=== PATIENT | male | born 1965 | race Caucasian/White ===

== ENCOUNTER 2016-10-17 05:48 | Outpatient (CLI) | payer MEDICARE ==
[~2016-10-17] VITALS: Ht 170.2 cm; Wt 165.1 kg
[~2016-10-17 05:48] MED LIST: ALBU0.632 IH; ALBU0.8322 IH; ALBU17AE23; ALBU17AE23 IH; ALBU8.5H2 IH; ALBUTEROL; ALBUTEROL NEB; AMLO5TAB2 PO; AMOX-358 PO; ARIP30TA PO; ASP81CT PO; ASP81TEC PO; ASPI-892 PO; ASPI81TA19 PO; ATOR20TA66 PO; ATOR40TA; ATOR40TA PO; Atorvastatin Calcium PO; BENZ-13 PO; BENZ200C25 PO; BUDE10.22 INH; CARV12.52; CARV12.52 PO; CARV12.53 PO; CEPH-507 PO; CEPH500C; CHOL200018 PO; CLON1TAB3 PO; CLOP75TA28 PO; CLPD75T PO; DIVA500T PO; DIVA500T15; DIVA500T15 PO; DOXY-233 PO; DVL500TEC; DVL500TSR PO; ESZO1TAB2 PO; ESZO2TAB4 PO; ESZO3TAB38 PO; EZET10TA23 PO; EZET10TA5; EZET10TA5 PO; FLT05NA16; FLUT16SP22 NS; FNT100TD TD; FNT25TD; FURO20TA4; FURO40TA4; FURO40TA4 PO; GABA-488 PO; GABA300T PO; GBPN100C; GBPN100C PO; HUMALOG; HYDR1TAB PO; INDO25CA PO; INDO50CA PO; INSASP10V; INSU100C4; INSU100C7 SQ; INSU100I14 SC; INSU100I14 SQ; INSU100V6; INSU100V6 SC; KCL20TCR; KETO50CA PO; KETO75CA; LEVO40CA PO; LIRA0.6P SQ; LIRA0.6P3 INJ; LISI10TA2 PO; LISI20TA PO; LISI40TA PO; LNS30CCR; LNS30CCR PO; LOSA100T16 PO; LOSA100T7 PO; LOSA50TA36 PO; LSRT50T PO; Losartan Potassium PO; MELO-195 PO; METF-380 PO; METF1000 PO; METH4TAB PO; METH500T35 PO; METO-272 PO; MNTL10T; MNTL10T PO; MONT10TA24 PO; MORP-33 PO; MORP15TA PO; MORP15TA30 PO; MORP15TA4 PO; MTL5T PO; MTP100TCR PO; MTP50T PO; NF-ABIL15T PO; NF-ESOM40C PO; NORT10CA3 PO; NORT25CA PO; ONDA8TAB9 PO; ONDAN4ODT PO; OXYC-12 PO; OXYC-272 PO; OXYC-465 PO; OXYC1CAP; OXYC1CAP3 PO; OXYC1TAB17 PO; PGLT30T PO; PIOG45TA; PIOG45TA16 PO; POTA10CA43 PO; POTA10TA36; POTA20TA15 PO; QUET100T32 PO; QUET50TA21 PO; QUET50TA55 PO; RIZA10TA23 PO; RIZA5TAB14; RIZA5TAB14 PO; RT-ALBUINH PO; SCR1T1 PO; SERT25TA PO; SERT50TA; SERT50TA2 PO; SERT50TA9 PO; SUMA100T3 PO; SYMLIN; TAMS0.4C2 PO; TAMS0.4C98 PO; TIOT18CA2 INH; TIOT18CA2 PO; TIZA4CAP PO; TOPI50TA20; TPR100T PO; TRAZ-144 PO; TRZ100T; TRZ100T PO; TRZ50T PO; TYLOX PO; VORT10TA PO; ZLP10T; ZLP10T PO; ZOLP10TA5 PO; ZONI100C11; ZONI100C11 PO; [UNRECOGNIZED DRUG - CODE] SQ; [UNRECOGNIZED DRUG - REMARK]; symbicort inhaler IH; trazodone PO
== END 2016-10-17 15:32 ==
LOC: PREOP 05:48
PROVIDERS: ATTEND Internal Medicine Critical Care Medicine
DX: Z01.818 Encounter for other preprocedural examination (principal); R59.0 Localized enlarged lymph nodes

== ENCOUNTER 2016-10-19 06:53 | Day surgery (SDC) | payer MEDICARE ==
[~2016-10-19] VITALS: Ht 170.2 cm; Wt 165.1 kg
[~2016-10-19 06:53] MED LIST changes: +NS IV 1000 ML 1,000 ML ONE
[2016-10-19] MEDS ORDERED: SUCCINYLCHOLINE INJ 100 MG/5 ML SYR ONE (07:15)
[2016-10-19] MEDS ORDERED: MIDAZOLAM 2 MG/2 ML (VERSED) VIAL ONE (07:16)
[2016-10-19] MEDS ORDERED: proPOfol 200 MG/20 ML (DIPRIVAN) VIAL IV ONE ×2 (07:16→08:18)
[2016-10-19] MEDS ORDERED: fentaNYL INJECTION 100 MCG/2 ML AMP ONE ×2 (07:16→08:11)
[2016-10-19] MEDS ORDERED: LIDOCAINE JELLY 2% (XYLOCAINE) 5 ML TUBE ONE (07:17)
[2016-10-19] MEDS ORDERED: SEVOFLURANE (ULTANE) 15 ML INHAL SOLN ONE ×2 (07:17→08:52)
[2016-10-19] MEDS ORDERED: NS IV 1000 ML 1,000 ML IV STA (07:23)
[2016-10-19] MEDS ORDERED: LIDOCAINE PF 1% 2 ML AMP INJ PRN (07:30)
[2016-10-19] MEDS ORDERED: FLUMAZENIL (ROMAZICON) 0.1 MG/ML 5 ML VIAL INJ PRN (07:30)
[2016-10-19] MEDS ORDERED: HURRICAINE EXT TUBE (BENZOCAINE) XX PRN (07:30)
[2016-10-19] MEDS ORDERED: NALOXONE 0.4 MG/ML 1 ML (NARCAN) VIAL IVP PRN (07:30)
[2016-10-19] MEDS ORDERED: LIDOCAINE JELLY 2% (XYLOCAINE) 5 ML TUBE MM PRN (07:30)
[2016-10-19] MEDS ORDERED: RT-ALBUTEROL SULF 2.5 MG/3 ML PRE-MIX VIAL ONE (07:31)
[2016-10-19 07:39] VITALS: BP 188/104
[2016-10-19] MEDS ORDERED: ROCURONIUM 50 MG/5 ML (ZEMURON) VIAL IV ONE (08:13)
[2016-10-19] MEDS ORDERED: PHENYLEPHRINE 100 MCG/ML 10 ML (ANESTHESIA) SYR ONE (08:35)
[2016-10-19] MEDS ORDERED: ONDANSETRON 4 MG/2 ML (SDV) Z0FRAN ONE (08:43)
[2016-10-19] MEDS ORDERED: LACTATED RINGERS 1,000 ML IV ONE (08:51)
[2016-10-19] MEDS ORDERED: LABETALOL HCL 20 MG/4 ML VIAL ONE (08:57)
[2016-10-19] MEDS ORDERED: LACTATED RINGERS 1,000 ML IV SCH (09:00)
--- NOTE | 2016-10-19 09:11 | Pulmonary Procedures ---
Pulmonary Procedures Date of Procedure Date of Service: Oct 19, 2016 Bronch Bronchoscopy with EBUS with bx of station 4Llymph nodes Preop DX: [mediastinal lymphadenopathy - PostOP DX: same no endobronchial masses noted Complications: None Pt was sedated per anesthesia. Bronchoscopy was advanced through the ED tube and an anatomical undertaken down to the segmental bronchi bilaterally. No endobronchial lesions noted. EBUS was then advanced through ET tube and the mediastinum was US. Station 4L lymph nodes were sampled via needle bx under US guidance. No other lymph nodes were found with US. Pt tolerated procedure well. No complications noted. ROSEMARY OVALLE DO Oct 19, 2016 09:11
--- NOTE | 2016-10-19 09:27 | Diagnostic Imaging Report ---
INDICATION: Shortness of breath Portable chest 9:24 AM Heart appears enlarged. Pulmonary vascularity is normal. Lungs are clear. IMPRESSION: Cardiomegaly without evidence of pulmonary venous hypertension Dictated by: Dictated on workstation # [id number]
[2016-10-19 09:50] VITALS: BP 137/69
[2016-10-19 10:20] VITALS: BP 127/63
[2016-10-19 10:40] VITALS: BP 127/63
== END 2016-10-19 10:40 | disposition home or self-care (01) ==
LOC: ENDO 06:53
PROVIDERS: ATTEND Internal Medicine Critical Care Medicine
DX: R59.0 Localized enlarged lymph nodes (principal); J45.909 Unspecified asthma, uncomplicated; G47.33 Obstructive sleep apnea (adult) (pediatric); Z79.899 Other long term (current) drug therapy
CPT/HCPCS: 71010; 82962; 94640

== ENCOUNTER → 2016-11-02 | Outpatient (RCR) | payer MEDICARE ==
[2016-08-04 14:01] LABS: BASOPHILS % (AUTO) 0 % (0-10); EOSINOPHILS # (AUTO) 0.7 10^3/uL (0.0-0.3); EOSINOPHILS % (AUTO) 7 % (0-10); LYMPHOCYTES # (AUTO) 3.5 X 10^3 (1.0-4.0); LYMPHOCYTES % (AUTO) 35 % (12-44); MEAN CORPUSCULAR HEMOGLOBIN 30 PG (25-34); MEAN CORPUSCULAR HGB CONC 34 G/DL (32-36); MEAN CORPUSCULAR VOLUME 87 FL (80-99); MEAN PLATELET VOLUME 9.7 FL (7.4-10.4); MONOCYTES # (AUTO) 0.8 X 10^3 (0.0-1.0); MONOCYTES % (AUTO) 8 % (0-12); NEUTROPHILS # (AUTO) 5.2 X 10^3 (1.8-7.8); NEUTROPHILS % (AUTO) 51 % (42-75); PLATELET COUNT 293 10^3/uL (130-400); RED BLOOD COUNT 4.04 10^6/uL (4.35-5.85); RED CELL DISTRIBUTION WIDTH 13.3 % (10.0-14.5); WHITE BLOOD COUNT 10.2 10^3/uL (4.3-11.0)
[2016-08-04 14:04] LABS: PEP REPORT SEE PATH REPORT
[2016-08-04 14:33] LABS: ALANINE AMINOTRANSFERASE 22 U/L (0-55); ALBUMIN 3.7 G/DL (3.2-4.5); ANION GAP 9 MMOL/L (5-14); ASPARTATE AMINO TRANSFERASE 25 U/L (5-34); BILIRUBIN,TOTAL 0.3 MG/DL (0.1-1.0); BLOOD UREA NITROGEN 12 MG/DL (7-18); BUN/CREATININE RATIO 17; CARBON DIOXIDE 27 MMOL/L (21-32); CHLORIDE 106 MMOL/L (98-107); CREATININE SERUM 0.72 MG/DL (0.60-1.30); GFR ESTIMATED > 60; GLUCOSE 83 MG/DL (70-105); LACTATE DEHYDROGENASE 271 U/L (125-220); POTASSIUM 3.9 MMOL/L (3.6-5.0); SODIUM 142 MMOL/L (135-145); TOTAL PROTEIN 6.3 G/DL (6.4-8.2)
[2016-08-05 07:10] LABS: LIGHT CHAIN LAMBDA SERUM QUANT 11.43 mg/L (5.71-26.30)
[2016-08-09 07:14] LABS: CLIN PATHOLOGY REPORT FOOTNOTE; SERUM PROTEIN ELEC DETAIL L-16-0014388
[2016-10-06 14:55] LABS: BASOPHILS % (AUTO) 1 % (0-10); EOSINOPHILS # (AUTO) 0.5 10^3/uL (0.0-0.3); EOSINOPHILS % (AUTO) 6 % (0-10); LYMPHOCYTES # (AUTO) 3.1 X 10^3 (1.0-4.0); LYMPHOCYTES % (AUTO) 39 % (12-44); MEAN CORPUSCULAR HEMOGLOBIN 30 PG (25-34); MEAN CORPUSCULAR HGB CONC 34 G/DL (32-36); MEAN CORPUSCULAR VOLUME 87 FL (80-99); MEAN PLATELET VOLUME 10.1 FL (7.4-10.4); MONOCYTES # (AUTO) 0.7 X 10^3 (0.0-1.0); MONOCYTES % (AUTO) 8 % (0-12); NEUTROPHILS # (AUTO) 3.8 X 10^3 (1.8-7.8); NEUTROPHILS % (AUTO) 47 % (42-75); PLATELET COUNT 344 10^3/uL (130-400); RED BLOOD COUNT 4.67 10^6/uL (4.35-5.85); RED CELL DISTRIBUTION WIDTH 13.1 % (10.0-14.5); WHITE BLOOD COUNT 8.1 10^3/uL (4.3-11.0)
[2016-10-06 14:59] LABS: PEP REPORT SEE PATH REPORT
[2016-10-06 15:21] LABS: ALANINE AMINOTRANSFERASE 26 U/L (0-55); ALBUMIN 4.1 G/DL (3.2-4.5); ANION GAP 9 MMOL/L (5-14); ASPARTATE AMINO TRANSFERASE 22 U/L (5-34); BILIRUBIN,TOTAL 0.2 MG/DL (0.1-1.0); BLOOD UREA NITROGEN 9 MG/DL (7-18); BUN/CREATININE RATIO 11; CALCIUM 8.8 MG/DL (8.5-10.1); CARBON DIOXIDE 24 MMOL/L (21-32); CHLORIDE 106 MMOL/L (98-107); CREATININE SERUM 0.84 MG/DL (0.60-1.30); GFR ESTIMATED > 60; GLUCOSE 179 MG/DL (70-105); LACTATE DEHYDROGENASE 233 U/L (125-220); POTASSIUM 5.3 MMOL/L (3.6-5.0); SODIUM 139 MMOL/L (135-145); TOTAL PROTEIN 6.8 G/DL (6.4-8.2)
[2016-10-08 02:24] LABS: IMMUNOGLOBULIN IGA 157 mg/dL (71-263); IMMUNOGLOBULIN IGG 759 mg/dL (672-1680); LIGHT CHAIN KAPPA SERUM QUANT 11.19 mg/L (3.30-19.40); LIGHT CHAIN LAMBDA SERUM QUANT 12.47 mg/L (5.71-26.30)
[2016-10-10 08:21] LABS: IMMUNOGLOBULIN IGM 93 mg/dL (47-209)
[2016-10-11 09:22] LABS: CLIN PATHOLOGY REPORT FOOTNOTE; SERUM PROTEIN ELEC DETAIL L-17-0000627
[2016-10-27 09:27] LABS: BASOPHILS % (AUTO) 0 % (0-10); EOSINOPHILS # (AUTO) 0.6 10^3/uL (0.0-0.3); EOSINOPHILS % (AUTO) 6 % (0-10); LYMPHOCYTES # (AUTO) 3.2 X 10^3 (1.0-4.0); LYMPHOCYTES % (AUTO) 34 % (12-44); MEAN CORPUSCULAR HEMOGLOBIN 29 PG (25-34); MEAN CORPUSCULAR HGB CONC 33 G/DL (32-36); MEAN CORPUSCULAR VOLUME 88 FL (80-99); MEAN PLATELET VOLUME 10.3 FL (7.4-10.4); MONOCYTES # (AUTO) 0.8 X 10^3 (0.0-1.0); MONOCYTES % (AUTO) 8 % (0-12); NEUTROPHILS # (AUTO) 4.8 X 10^3 (1.8-7.8); NEUTROPHILS % (AUTO) 51 % (42-75); PLATELET COUNT 369 10^3/uL (130-400); RED BLOOD COUNT 4.61 10^6/uL (4.35-5.85); RED CELL DISTRIBUTION WIDTH 13.3 % (10.0-14.5); WHITE BLOOD COUNT 9.5 10^3/uL (4.3-11.0)
[2016-10-27 09:30] LABS: PEP REPORT SEE PATH REPORT
[2016-10-27 09:53] LABS: ALANINE AMINOTRANSFERASE 21 U/L (0-55); ALBUMIN 3.9 G/DL (3.2-4.5); ANION GAP 13 MMOL/L (5-14); ASPARTATE AMINO TRANSFERASE 22 U/L (5-34); BILIRUBIN,TOTAL 0.2 MG/DL (0.1-1.0); BLOOD UREA NITROGEN 22 MG/DL (7-18); BUN/CREATININE RATIO 21; CARBON DIOXIDE 27 MMOL/L (21-32); CHLORIDE 103 MMOL/L (98-107); CREATININE SERUM 1.07 MG/DL (0.60-1.30); GFR ESTIMATED > 60; GLUCOSE 181 MG/DL (70-105); SODIUM 143 MMOL/L (135-145); TOTAL PROTEIN 6.9 G/DL (6.4-8.2)
[2016-10-27 09:59] LABS: POTASSIUM 3.8 MMOL/L (3.6-5.0)
[2016-10-28 02:11] LABS: LIGHT CHAIN KAPPA SERUM QUANT 12.13 mg/L (3.30-19.40); LIGHT CHAIN LAMBDA SERUM QUANT 11.81 mg/L (5.71-26.30)
[2016-10-31 13:03] LABS: CLIN PATHOLOGY REPORT FOOTNOTE; SERUM PROTEIN ELEC DETAIL L-17-0001537
[~2016-11-02] MED LIST changes: +CLON0.1T PO; -NS IV 1000 ML 1,000 ML ONE
== END | disposition home or self-care (01) ==
LOC: ONC 08-04 13:40
PROVIDERS: ATTEND Internal Medicine Hematology & Oncology
DX: D72.820 Lymphocytosis (symptomatic) (principal); I25.10 Atherosclerotic heart disease of native coronary artery without angina pectoris; E87.6 Hypokalemia; I10 Essential (primary) hypertension; E78.5 Hyperlipidemia, unspecified; E11.9 Type 2 diabetes mellitus without complications; J44.9 Chronic obstructive pulmonary disease, unspecified; G47.30 Sleep apnea, unspecified; E66.01 Morbid (severe) obesity due to excess calories; Z68.43 Body mass index [BMI] 50.0-59.9, adult; Z79.899 Other long term (current) drug therapy; Z95.5 Presence of coronary angioplasty implant and graft
CPT/HCPCS: 36415; 80053; 82232; 82784; 83615; 83883; 84155; 84165; 85025; 99213

== ENCOUNTER 2016-11-24 13:59 | Outpatient (CLI) | payer MEDICARE ==
[~2016-11-24] VITALS: Ht 170.2 cm; Wt 165.1 kg
[~2016-11-24 13:59] MED LIST changes: -CLON0.1T PO
[2016-11-24 14:03] VITALS: BP 166/80
[2016-11-24] MEDS ORDERED: METF1000 PO (14:14)
[2016-11-24] MEDS ORDERED: CLON0.1T PO (14:30)
== END 2016-11-24 14:20 | disposition home or self-care (01) ==
LOC: PREOP 13:59
PROVIDERS: ATTEND Surgery
DX: Z01.818 Encounter for other preprocedural examination (principal); Z11.2 Encounter for screening for other bacterial diseases; C85.90 Non-Hodgkin lymphoma, unspecified, unspecified site
CPT/HCPCS: 87081

== ENCOUNTER 2016-11-28 07:42 | Day surgery (SDC) | payer MEDICARE ==
[~2016-11-28] VITALS: Ht 170.2 cm; Wt 165.1 kg
[~2016-11-28 07:42] MED LIST changes: +CLON0.1T PO
[2016-11-28 07:50] VITALS: BP 159/68
[2016-11-28] MEDS ORDERED: FAMOTIDINE 20MG/2ML IV (PEPCID) ONE (08:10)
[2016-11-28] MEDS ORDERED: ceFAZolin 2 GM/NS 50 ML IV ONE (08:15)
[2016-11-28] MEDS ORDERED: FAMOTIDINE 20MG/2ML IV (PEPCID) IV ONE (08:15)
[2016-11-28] MEDS: LACTATED RINGERS 1,000 ML IV PRN ×2 (08:17→10:09)
[2016-11-28] MEDS ORDERED: MIDAZOLAM 2 MG/2 ML (VERSED) VIAL ONE ×2 (08:30→09:49)
[2016-11-28] MEDS ORDERED: proPOfol 200 MG/20 ML (DIPRIVAN) VIAL IV ONE ×2 (08:30→10:13)
[2016-11-28] MEDS ORDERED: 0.9% SODIUM CHLORIDE PF INJ 20 ML VIAL ONE (08:39)
[2016-11-28] MEDS ORDERED: HEParin (CENTRAL IV FLUSH) 500 UNIT/5 ML SYR ONE (08:39)
[2016-11-28] MEDS ORDERED: LIDOCAINE/EPI 1%-1:100,000 (XYLOCAINE) 20ML ONE ×2 (08:39→09:30)
--- NOTE | 2016-11-28 09:07 | Progress Note-Pre Operative ---
Pre-Operative Progress Note H&P Reviewed The H&P was reviewed, patient examined and no changes noted. Date H&P Reviewed: Nov 28, 2016 Time H&P Reviewed: 09:03 Pre-Operative Diagnosis: venous insufficiency YURI EDWARDS DO Nov 28, 2016 09:07
[2016-11-28] MEDS ORDERED: KETAMINE HCL 100 MG/ML 5 ML VIAL ONE (09:14)
[2016-11-28] MEDS ORDERED: LACTATED RINGERS 2,000 ML IV ONE (10:13)
[2016-11-28] MEDS ORDERED: LABETALOL HCL 20 MG/4 ML VIAL ONE (10:13)
--- NOTE | 2016-11-28 10:16 | Progress Note-Post Operative ---
Post-Operative Progess Note Assistant Producer Medical Student Eduin Negrete Pre-Operative Diagnosis venous insufficiency Post-Operative Diagnosis same Post-Op Procedure Note Date of Procedure: Nov 28, 2016 Name of Procedure: Insertion of sunil-cath with flouro guidance Anesthesia Type iv sedation Estimated blood loss (mL): 50ml Specimen(s) collected none YURI EDWARDS DO Nov 28, 2016 10:16
--- NOTE | 2016-11-28 10:18 | Discharge Inst-Surgical ---
Discharge Inst-Surgical Depart Medication/Instructions New, Converted or Re-Newed RX: Other (no new rx, continue home meds) Patient Instructions Follow up Appt: Make appointment for 1 week. [phone] Instructions: No lifting greater than 10 pounds. No strenuous activity. May shower in 24 hours, no tub bath or soaking. Use incentive spirometer at home as directed. No Smoking Skin/Wound Care: May remove bandages. Skin is glued shut, glue will fall off in 7-10 days Symptoms to Report: Appetite Changes, Extremity Discoloration, Numbness/Tingling, Swelling Increased , Bleeding Excessive, Eyesight Changes, Pain Increased, Urine Color Change, Constipation(Persistent), Fever over 101 degree F, Pain/Pressure in chest, Urinating Difficulty, Cough Up/Vomit Blood, Heart Beat Irreg/Pounding, Pain/ Pressure in jaw, Vaginal Bleeding Increase, Cramps in feet or legs, Lightheadedness, Pain/Pressure in shoulder, Diarrhea(Persistent), Memory Changes Suddenly, Questions/Concerns, Weight gain consecutive days, Dizziness/ Fainting, Nausea/Vomiting, Shortness of Breath, Weight gain over 2 pounds If questions or concerns contact your physician Or seek help at emergency department. Activity Activity as Tolerated: Yes Driving Instructions: You May Drive No Driving When on Pain Meds: Yes Diet Discharge Diet: No Restrictions Skin/Wound Care Infection Signs and Symptoms: Increased Redness, Foul Odor of Wound, Increased Drainage, Skin Itchy or Has a Rash, Increased Swelling, Temperature Above 101 F Bathing Instructions: Shower Stitches/Robert/Dermabond Dis: Dermabond Ice Pack: Ice On and Off Site YURI EDWARDS DO Nov 28, 2016 10:18
[2016-11-28] MEDS ORDERED: ONDANSETRON 4 MG/2 ML (SDV) Z0FRAN IV ONE (10:30)
[2016-11-28] MEDS ORDERED: morphine INJ 10 MG/ML 1ML (SYR OR VIAL) IV PRN (10:30)
[2016-11-28] MEDS ORDERED: fentaNYL INJECTION 100 MCG/2 ML AMP IV PRN (10:30)
[2016-11-28 11:00] VITALS: BP 126/69
--- NOTE | 2016-11-28 11:22 | Diagnostic Imaging Report ---
INDICATION: Port placement. FINDINGS: Catheter tip overlies the right paratracheal mediastinum presumed near the junction of the innominates. There is no pneumothorax. Enlargement of the cardiac silhouette is unchanged in magnitude and configuration. No effusion or pneumothorax. IMPRESSION: Venous catheter projects near the upper SVC or innominate level. No pneumothorax. Dictated by: Dictated on workstation # [id number]
[2016-11-28 11:30] VITALS: BP 136/72
--- NOTE | 2016-11-28 12:57 | OPERATIVE REPORT ---
PROCEDURE PHYSICIAN: YURI EDWARDS DATE OF PROCEDURE: 11/28/2016 PREOPERATIVE DIAGNOSES: 1. Venous insufficiency. 2. Lymphoma. POSTOPERATIVE DIAGNOSES: 1. Venous insufficiency. 2. Lymphoma. PROCEDURE: Insertion of Port-A-Cath with fluoroscopy guidance. SURGEON: Dr. Kathryn BOWDEN ASSIST: Medical student Mukund Negrete. ANESTHESIA: IV sedation. BLOOD LOSS: Approximately 50 mL. SPECIMEN: None. COMPLICATIONS: None. INDICATION FOR THE PROCEDURE: The patient is a 51-year-old male who recently was told he had lymphoma. He is going to need blood draws weekly. They were having a very hard time doing a blood draw plus he may need chemotherapy in the future and he needed a port placed. FINDINGS: The patient had a port placed right anterior chest wall. PROCEDURE NOTE: After informed consent was obtained, patient was brought to the operating room, placed on table in supine position. He was sterilely prepped and draped in the normal fashion. Did tape this chest down towards the feet to try and get the body habitus out of the way. Infiltrated at the right anterior chest wall with local up to the clavicle and then on the right anterior chest wall in the spot where the port would be placed. Then using 18-gauge finder needle with negative inspiration, directed the needle towards the clavicle and under it to get the subclavian vein. It took 4 attempts, finally able to get a good flash of blood and then withdrew the syringe and then placed a guidewire using Seldinger technique. Checked with fluoroscopy and unfortunately the first a couple times the guidewire went up into the neck. Finally able to get to go down the vena cava. I removed the needle. Put a hemostat on the wire to hold it in place. Made a stab incision at the guidewire and then made an incision on the right anterior chest wall number 15 blade, carried down through skin into subcutaneous tissue and deepened down through subcutaneous tissue with Bovie electrocautery down to just above the pectoralis major muscle creating, a pocket. I then placed Ray-Emeli to hold pressure and then using the Seldinger technique over the guidewire, replaced the dilator. It went in without too much difficulty checked with fluoroscopy. It was in good position. At this point, then removed the guidewire and the inner portion of the dilator and then started placing the catheter. Unfortunately had a very tough time placing the catheter. It did not want to go down. Finally able to slowly withdraw the dilator again using fluoroscopy periodically to make sure the catheter was still in. Finally able to get the catheter go down into the vena cava and was able to aspirate and flush without difficulty. At this point, had already tunneled the catheter from the stab incision into the pocket, cut the catheter and attached to the port and then accessed the port with a [place] needle. Good aspiration, got a good flash of blood and then flushed with saline. Then placed this into the pocket sutured this in place with 3-0 Prolene and then through the skin again accessed the port with a [place]o needle. Aspirating got a good flash of blood and then flushed easily with saline and then flushed with heparin 1:1000 mix, put in 1.5 mL. Then closed the incision, closing the deep subcutaneous tissue with 3-0 Vicryl, 2 interrupted sutures. Then closed the skin with 4-0 undyed Monocryl 3 interrupted subcuticular stitches and then the stab incision closed with 4-0 undyed Monocryl subcuticular stitch. Used fluoroscopy again. There did not appear to be any kinking. It looked like catheter did go up above the clavicle a little bit but then down and was still in a good position in the vena cava. Most of blood loss came while removing the catheter with a dilator still in, a little bit of blood coming out the dilator and this was where the blood loss occurred. Once everything was cleaned and dried, patient was then transferred to recover room in stable condition. Sponge, instrument and needle count were correct at the end of the case and a stat chest x-ray was ordered. Job ID: [id number] Dictated Date: 11/28/2016 11:37:29 Tube Machine Operator Helper Date: 11/28/2016 12:44:10 / newton
--- NOTE | 2016-11-28 16:24 | Diagnostic Imaging Report ---
EXAMINATION: Fluoroscopy. INDICATION: Groshong catheter placement. FINDINGS: Fluoroscopic assistance was provided for Dr. Matthew Peralta during his Groshong catheter placement procedure. 34 seconds of fluoroscopy time was utilized. A single spot film of the right thorax was received from the OR. There is a Groshong catheter in place with the tip overlying the mid portion of the superior vena cava. IMPRESSION: Fluoroscopic assistance was provided for Dr. Peralta during his Groshong catheter procedure insertion. A followup chest exam would be recommended for continued evaluation. Dictated by: Dictated on workstation # [id number]
== END 2016-11-28 11:30 | disposition home or self-care (01) ==
LOC: SDC 07:42
PROVIDERS: ATTEND Surgery
DX: C85.90 Non-Hodgkin lymphoma, unspecified, unspecified site (principal); I87.2 Venous insufficiency (chronic) (peripheral); E11.9 Type 2 diabetes mellitus without complications
CPT/HCPCS: 71010; 82962

== ENCOUNTER → 2016-12-22 | Outpatient (CLI) | payer MEDICARE ==
[~2016-12-22] MED LIST changes: +BARIUM SUSPENSION 105% (LIQUID POLIBAR PLUS) 240 ML/DOSE PO ONE; +BARIUM SUSPENSION 60% (LIQUID EZ PAQUE) 240 ML DOSE PO ONE
--- NOTE | 2016-12-22 12:54 | Diagnostic Imaging Report ---
EXAMINATION: Upper GI study, double contrast. Marketing Systems Analyst image of the abdomen was performed. After the oral administration of gas forming granules, the patient drank thick and thin barium with visualization under fluoroscopy, with spot images taken over the esophagus, stomach and duodenum and followed by overhead images in the chest and abdomen. INDICATION: Reflux. Morbid obesity FLUOROSCOPY TIME: One minutes and 21 seconds. FINDINGS: Marketing Systems Analyst images of the abdomen demonstrate small amount of fecal material. The images are underpenetrated due to large patient body habitus. The esophagus demonstrates normal caliber with no strictures. The mucosal pattern demonstrates no filling defects, diverticulum or ulceration. There is normal relaxation of the distal sphincter. There is however occasional tertiary contractions and incomplete emptying of the barium from the esophagus compatible with mild motility dysfunction. Eventually the esophagus empties. There is a tiny sliding hiatal hernia. The stomach demonstrates normal distensibility with normal appearance of the mucosal folds. There are no ulcers or evidence of mass. The duodenal bulb and sweep appear normal. IMPRESSION: 1. Tiny sliding hiatal hernia. 2. Occasional tertiary esophageal contractions and mild esophageal motility dysfunction. Dictated by: Dictated on workstation # [id number]
== END ==
LOC: RAD 11:13
PROVIDERS: ATTEND Surgery Pediatric Surgery
DX: K44.9 Diaphragmatic hernia without obstruction or gangrene (principal); E66.01 Morbid (severe) obesity due to excess calories; K21.9 Gastro-esophageal reflux disease without esophagitis
CPT/HCPCS: 74241

== ENCOUNTER 2017-01-12 21:00 | Outpatient (CLI) | payer MEDICARE ==
[~2017-01-12 21:00] MED LIST changes: -BARIUM SUSPENSION 105% (LIQUID POLIBAR PLUS) 240 ML/DOSE PO ONE; -BARIUM SUSPENSION 60% (LIQUID EZ PAQUE) 240 ML DOSE PO ONE
== END 2017-01-13 05:42 | disposition home or self-care (01) ==
LOC: SLEEP 21:00
PROVIDERS: ATTEND Nurse Practitioner Family
DX: G47.34 Idiopathic sleep related nonobstructive alveolar hypoventilation (principal); G47.33 Obstructive sleep apnea (adult) (pediatric); J44.9 Chronic obstructive pulmonary disease, unspecified; C91.10 Chronic lymphocytic leukemia of B-cell type not having achieved remission; G40.909 Epilepsy, unspecified, not intractable, without status epilepticus
CPT/HCPCS: 95811

== ENCOUNTER 2017-01-26 09:34 | Outpatient (RCR) | payer MEDICARE ==
[2016-11-03 13:07] LABS: BASOPHILS % (AUTO) 0 % (0-10); EOSINOPHILS # (AUTO) 0.6 10^3/uL (0.0-0.3); EOSINOPHILS % (AUTO) 5 % (0-10); LYMPHOCYTES % (AUTO) 33 % (12-44); MEAN CORPUSCULAR HEMOGLOBIN 29 PG (25-34); MEAN CORPUSCULAR HGB CONC 34 G/DL (32-36); MEAN CORPUSCULAR VOLUME 87 FL (80-99); MEAN PLATELET VOLUME 10.6 FL (7.4-10.4); MONOCYTES # (AUTO) 0.7 X 10^3 (0.0-1.0); MONOCYTES % (AUTO) 6 % (0-12); NEUTROPHILS # (AUTO) 6.7 X 10^3 (1.8-7.8); NEUTROPHILS % (AUTO) 56 % (42-75); PLATELET COUNT 331 10^3/uL (130-400); RED BLOOD COUNT 4.67 10^6/uL (4.35-5.85); RED CELL DISTRIBUTION WIDTH 12.9 % (10.0-14.5); RETICULOCYTE % 1.17 % (0.50-2.40)
[2016-11-03 13:28] LABS: BAND NEUTROPHILS 0 %; BASOPHILS % (MANUAL) 1 %; EOSINOPHILS % (MANUAL) 5 %; LYMPHOCYTES % (MANUAL) 34 %; NEUTROPHILS % (MANUAL) 56 %
[2016-11-17 11:09] LABS: ALANINE AMINOTRANSFERASE 21 U/L (0-55); ANION GAP 11 MMOL/L (5-14); ASPARTATE AMINO TRANSFERASE 25 U/L (5-34); BILIRUBIN,TOTAL 0.3 MG/DL (0.1-1.0); BLOOD UREA NITROGEN 10 MG/DL (7-18); BUN/CREATININE RATIO 12; CALCIUM 9.4 MG/DL (8.5-10.1); CARBON DIOXIDE 24 MMOL/L (21-32); CHLORIDE 106 MMOL/L (98-107); CREATININE SERUM 0.82 MG/DL (0.60-1.30); GFR ESTIMATED > 60; GLUCOSE 104 MG/DL (70-105); LACTATE DEHYDROGENASE 294 U/L (125-220); POTASSIUM 4.4 MMOL/L (3.6-5.0); SODIUM 141 MMOL/L (135-145)
[2016-11-17 11:25] LABS: BASOPHILS % (AUTO) 0 % (0-10); EOSINOPHILS # (AUTO) 0.7 10^3/uL (0.0-0.3); EOSINOPHILS % (AUTO) 6 % (0-10); LYMPHOCYTES # (AUTO) 3.5 X 10^3 (1.0-4.0); LYMPHOCYTES % (AUTO) 31 % (12-44); MEAN CORPUSCULAR HEMOGLOBIN 29 PG (25-34); MEAN CORPUSCULAR HGB CONC 34 G/DL (32-36); MEAN CORPUSCULAR VOLUME 86 FL (80-99); MEAN PLATELET VOLUME 10.5 FL (7.4-10.4); MONOCYTES # (AUTO) 0.9 X 10^3 (0.0-1.0); MONOCYTES % (AUTO) 8 % (0-12); NEUTROPHILS # (AUTO) 6.4 X 10^3 (1.8-7.8); NEUTROPHILS % (AUTO) 55 % (42-75); PLATELET COUNT 271 10^3/uL (130-400); RED BLOOD COUNT 4.96 10^6/uL (4.35-5.85); RED CELL DISTRIBUTION WIDTH 13.5 % (10.0-14.5); WHITE BLOOD COUNT 11.6 10^3/uL (4.3-11.0)
[2016-11-24 14:51] LABS: BASOPHILS % (AUTO) 0 % (0-10); EOSINOPHILS # (AUTO) 0.6 10^3/uL (0.0-0.3); EOSINOPHILS % (AUTO) 5 % (0-10); LYMPHOCYTES # (AUTO) 4.9 X 10^3 (1.0-4.0); LYMPHOCYTES % (AUTO) 40 % (12-44); MEAN CORPUSCULAR HEMOGLOBIN 29 PG (25-34); MEAN CORPUSCULAR HGB CONC 33 G/DL (32-36); MEAN CORPUSCULAR VOLUME 87 FL (80-99); MEAN PLATELET VOLUME 10.5 FL (7.4-10.4); MONOCYTES # (AUTO) 1.1 X 10^3 (0.0-1.0); MONOCYTES % (AUTO) 9 % (0-12); NEUTROPHILS # (AUTO) 5.7 X 10^3 (1.8-7.8); NEUTROPHILS % (AUTO) 46 % (42-75); PLATELET COUNT 203 10^3/uL (130-400); RED BLOOD COUNT 4.67 10^6/uL (4.35-5.85); RED CELL DISTRIBUTION WIDTH 13.5 % (10.0-14.5); WHITE BLOOD COUNT 12.3 10^3/uL (4.3-11.0)
[2016-12-01 14:35] LABS: BASOPHILS % (AUTO) 0 % (0-10); EOSINOPHILS # (AUTO) 0.6 10^3/uL (0.0-0.3); EOSINOPHILS % (AUTO) 4 % (0-10); LYMPHOCYTES # (AUTO) 5.7 X 10^3 (1.0-4.0); LYMPHOCYTES % (AUTO) 46 % (12-44); MEAN CORPUSCULAR HEMOGLOBIN 30 PG (25-34); MEAN CORPUSCULAR HGB CONC 34 G/DL (32-36); MEAN CORPUSCULAR VOLUME 87 FL (80-99); MEAN PLATELET VOLUME 10.1 FL (7.4-10.4); MONOCYTES % (AUTO) 8 % (0-12); NEUTROPHILS # (AUTO) 5.2 X 10^3 (1.8-7.8); NEUTROPHILS % (AUTO) 42 % (42-75); PLATELET COUNT 258 10^3/uL (130-400); RED BLOOD COUNT 4.14 10^6/uL (4.35-5.85); RED CELL DISTRIBUTION WIDTH 13.5 % (10.0-14.5); WHITE BLOOD COUNT 12.4 10^3/uL (4.3-11.0)
[2016-12-01 15:10] LABS: ALANINE AMINOTRANSFERASE 25 U/L (0-55); ALBUMIN 3.7 G/DL (3.2-4.5); ANION GAP 11 MMOL/L (5-14); ASPARTATE AMINO TRANSFERASE 26 U/L (5-34); BILIRUBIN,TOTAL 0.4 MG/DL (0.1-1.0); BLOOD UREA NITROGEN 9 MG/DL (7-18); BUN/CREATININE RATIO 11; CALCIUM 9.1 MG/DL (8.5-10.1); CARBON DIOXIDE 28 MMOL/L (21-32); CHLORIDE 103 MMOL/L (98-107); CREATININE SERUM 0.84 MG/DL (0.60-1.30); GFR ESTIMATED > 60; GLUCOSE 83 MG/DL (70-105); POTASSIUM 3.5 MMOL/L (3.6-5.0); SODIUM 142 MMOL/L (135-145); TOTAL PROTEIN 6.3 G/DL (6.4-8.2)
[2016-12-08 15:36] LABS: BASOPHILS % (AUTO) 0 % (0-10); EOSINOPHILS # (AUTO) 0.3 10^3/uL (0.0-0.3); EOSINOPHILS % (AUTO) 2 % (0-10); LYMPHOCYTES % (AUTO) 37 % (12-44); MEAN CORPUSCULAR HEMOGLOBIN 29 PG (25-34); MEAN CORPUSCULAR HGB CONC 33 G/DL (32-36); MEAN CORPUSCULAR VOLUME 86 FL (80-99); MEAN PLATELET VOLUME 10.6 FL (7.4-10.4); MONOCYTES # (AUTO) 1.1 X 10^3 (0.0-1.0); MONOCYTES % (AUTO) 7 % (0-12); NEUTROPHILS # (AUTO) 8.5 X 10^3 (1.8-7.8); NEUTROPHILS % (AUTO) 53 % (42-75); PLATELET COUNT 270 10^3/uL (130-400); RED BLOOD COUNT 4.41 10^6/uL (4.35-5.85); RED CELL DISTRIBUTION WIDTH 13.9 % (10.0-14.5); WHITE BLOOD COUNT 15.9 10^3/uL (4.3-11.0)
[2016-12-15 11:01] LABS: BASOPHILS # (AUTO) 0.1 10^3/uL (0.0-0.1); BASOPHILS % (AUTO) 0 % (0-10); EOSINOPHILS # (AUTO) 0.4 10^3/uL (0.0-0.3); EOSINOPHILS % (AUTO) 3 % (0-10); LYMPHOCYTES # (AUTO) 6.5 X 10^3 (1.0-4.0); LYMPHOCYTES % (AUTO) 50 % (12-44); MEAN CORPUSCULAR HEMOGLOBIN 29 PG (25-34); MEAN CORPUSCULAR HGB CONC 33 G/DL (32-36); MEAN CORPUSCULAR VOLUME 87 FL (80-99); MONOCYTES # (AUTO) 0.9 X 10^3 (0.0-1.0); MONOCYTES % (AUTO) 7 % (0-12); NEUTROPHILS # (AUTO) 5.1 X 10^3 (1.8-7.8); NEUTROPHILS % (AUTO) 40 % (42-75); PLATELET COUNT 258 10^3/uL (130-400); RED BLOOD COUNT 4.19 10^6/uL (4.35-5.85); RED CELL DISTRIBUTION WIDTH 13.9 % (10.0-14.5); WHITE BLOOD COUNT 12.9 10^3/uL (4.3-11.0)
[2016-12-15 12:28] LABS: ALANINE AMINOTRANSFERASE 23 U/L (0-55); ALBUMIN 3.7 G/DL (3.2-4.5); ANION GAP 12 MMOL/L (5-14); ASPARTATE AMINO TRANSFERASE 20 U/L (5-34); BILIRUBIN,TOTAL 0.3 MG/DL (0.1-1.0); BLOOD UREA NITROGEN 7 MG/DL (7-18); BUN/CREATININE RATIO 9; CALCIUM 8.6 MG/DL (8.5-10.1); CARBON DIOXIDE 25 MMOL/L (21-32); CHLORIDE 107 MMOL/L (98-107); GFR ESTIMATED > 60; GLUCOSE 104 MG/DL (70-105); LACTATE DEHYDROGENASE 249 U/L (125-220); POTASSIUM 3.4 MMOL/L (3.6-5.0); SODIUM 144 MMOL/L (135-145); TOTAL PROTEIN 6.4 G/DL (6.4-8.2)
[2016-12-22 13:03] LABS: BASOPHILS # (AUTO) 0.1 10^3/uL (0.0-0.1); BASOPHILS % (AUTO) 1 % (0-10); EOSINOPHILS # (AUTO) 0.5 10^3/uL (0.0-0.3); EOSINOPHILS % (AUTO) 4 % (0-10); LYMPHOCYTES # (AUTO) 7.8 X 10^3 (1.0-4.0); LYMPHOCYTES % (AUTO) 52 % (12-44); MEAN CORPUSCULAR HEMOGLOBIN 29 PG (25-34); MEAN CORPUSCULAR HGB CONC 33 G/DL (32-36); MEAN CORPUSCULAR VOLUME 87 FL (80-99); MEAN PLATELET VOLUME 11.7 FL (7.4-10.4); MONOCYTES # (AUTO) 1.1 X 10^3 (0.0-1.0); MONOCYTES % (AUTO) 7 % (0-12); NEUTROPHILS # (AUTO) 5.6 X 10^3 (1.8-7.8); NEUTROPHILS % (AUTO) 37 % (42-75); PLATELET COUNT 217 10^3/uL (130-400); RED BLOOD COUNT 4.36 10^6/uL (4.35-5.85); RED CELL DISTRIBUTION WIDTH 14.1 % (10.0-14.5)
[2016-12-29 10:23] LABS: BASOPHILS # (AUTO) 0.1 10^3/uL (0.0-0.1); BASOPHILS % (AUTO) 0 % (0-10); EOSINOPHILS # (AUTO) 0.6 10^3/uL (0.0-0.3); EOSINOPHILS % (AUTO) 4 % (0-10); LYMPHOCYTES # (AUTO) 7.6 X 10^3 (1.0-4.0); LYMPHOCYTES % (AUTO) 48 % (12-44); MEAN CORPUSCULAR HEMOGLOBIN 29 PG (25-34); MEAN CORPUSCULAR HGB CONC 33 G/DL (32-36); MEAN CORPUSCULAR VOLUME 88 FL (80-99); MEAN PLATELET VOLUME 11.7 FL (7.4-10.4); MONOCYTES # (AUTO) 1.2 X 10^3 (0.0-1.0); MONOCYTES % (AUTO) 8 % (0-12); NEUTROPHILS # (AUTO) 6.3 X 10^3 (1.8-7.8); NEUTROPHILS % (AUTO) 40 % (42-75); PLATELET COUNT 218 10^3/uL (130-400); RED BLOOD COUNT 4.25 10^6/uL (4.35-5.85); RED CELL DISTRIBUTION WIDTH 14.1 % (10.0-14.5); WHITE BLOOD COUNT 15.7 10^3/uL (4.3-11.0)
[2016-12-29 10:45] LABS: ALANINE AMINOTRANSFERASE 18 U/L (0-55); ALBUMIN 3.4 G/DL (3.2-4.5); ANION GAP 7 MMOL/L (5-14); ASPARTATE AMINO TRANSFERASE 27 U/L (5-34); BILIRUBIN,TOTAL 0.3 MG/DL (0.1-1.0); BLOOD UREA NITROGEN 11 MG/DL (7-18); BUN/CREATININE RATIO 14; CALCIUM 7.9 MG/DL (8.5-10.1); CARBON DIOXIDE 26 MMOL/L (21-32); CHLORIDE 111 MMOL/L (98-107); CREATININE SERUM 0.76 MG/DL (0.60-1.30); GFR ESTIMATED > 60; GLUCOSE 74 MG/DL (70-105); POTASSIUM 3.8 MMOL/L (3.6-5.0); SODIUM 144 MMOL/L (135-145); TOTAL PROTEIN 5.9 G/DL (6.4-8.2)
[2017-01-05 08:48] LABS: BASOPHILS % (AUTO) 0 % (0-10); EOSINOPHILS # (AUTO) 0.5 10^3/uL (0.0-0.3); EOSINOPHILS % (AUTO) 4 % (0-10); LYMPHOCYTES # (AUTO) 7.4 X 10^3 (1.0-4.0); LYMPHOCYTES % (AUTO) 58 % (12-44); MEAN CORPUSCULAR HEMOGLOBIN 29 PG (25-34); MEAN CORPUSCULAR HGB CONC 33 G/DL (32-36); MEAN CORPUSCULAR VOLUME 88 FL (80-99); MONOCYTES # (AUTO) 1.2 X 10^3 (0.0-1.0); MONOCYTES % (AUTO) 9 % (0-12); NEUTROPHILS # (AUTO) 3.8 X 10^3 (1.8-7.8); NEUTROPHILS % (AUTO) 29 % (42-75); PLATELET COUNT 227 10^3/uL (130-400); RED BLOOD COUNT 4.47 10^6/uL (4.35-5.85); WHITE BLOOD COUNT 12.9 10^3/uL (4.3-11.0)
[2017-01-05 09:45] LABS: ALANINE AMINOTRANSFERASE 22 U/L (0-55); ALBUMIN 3.9 G/DL (3.2-4.5); ANION GAP 12 MMOL/L (5-14); ASPARTATE AMINO TRANSFERASE 33 U/L (5-34); BILIRUBIN,TOTAL 0.4 MG/DL (0.1-1.0); BLOOD UREA NITROGEN 12 MG/DL (7-18); BUN/CREATININE RATIO 13; CALCIUM 8.8 MG/DL (8.5-10.1); CARBON DIOXIDE 25 MMOL/L (21-32); CHLORIDE 107 MMOL/L (98-107); CREATININE SERUM 0.95 MG/DL (0.60-1.30); GFR ESTIMATED > 60; GLUCOSE 106 MG/DL (70-105); SODIUM 144 MMOL/L (135-145); TOTAL PROTEIN 6.7 G/DL (6.4-8.2)
[2017-01-05 09:48] LABS: POTASSIUM 3.7 MMOL/L (3.6-5.0)
[2017-01-12 15:58] LABS: BASOPHILS % (AUTO) 0 % (0-10); EOSINOPHILS # (AUTO) 0.3 10^3/uL (0.0-0.3); EOSINOPHILS % (AUTO) 2 % (0-10); LYMPHOCYTES # (AUTO) 5.6 X 10^3 (1.0-4.0); LYMPHOCYTES % (AUTO) 38 % (12-44); MEAN CORPUSCULAR HEMOGLOBIN 29 PG (25-34); MEAN CORPUSCULAR HGB CONC 33 G/DL (32-36); MEAN CORPUSCULAR VOLUME 88 FL (80-99); MONOCYTES # (AUTO) 1.2 X 10^3 (0.0-1.0); MONOCYTES % (AUTO) 8 % (0-12); NEUTROPHILS # (AUTO) 7.6 X 10^3 (1.8-7.8); NEUTROPHILS % (AUTO) 52 % (42-75); PLATELET COUNT 218 10^3/uL (130-400); RED BLOOD COUNT 4.29 10^6/uL (4.35-5.85); RED CELL DISTRIBUTION WIDTH 13.6 % (10.0-14.5); WHITE BLOOD COUNT 14.7 10^3/uL (4.3-11.0)
[2017-01-12 16:31] LABS: ALANINE AMINOTRANSFERASE 20 U/L (0-55); ALBUMIN 3.9 G/DL (3.2-4.5); ANION GAP 10 MMOL/L (5-14); ASPARTATE AMINO TRANSFERASE 29 U/L (5-34); BILIRUBIN,TOTAL 0.4 MG/DL (0.1-1.0); BLOOD UREA NITROGEN 9 MG/DL (7-18); BUN/CREATININE RATIO 10; CALCIUM 8.4 MG/DL (8.5-10.1); CARBON DIOXIDE 28 MMOL/L (21-32); CHLORIDE 104 MMOL/L (98-107); CREATININE SERUM 0.88 MG/DL (0.60-1.30); GFR ESTIMATED > 60; GLUCOSE 137 MG/DL (70-105); LACTATE DEHYDROGENASE 306 U/L (125-220); POTASSIUM 3.7 MMOL/L (3.6-5.0); SODIUM 142 MMOL/L (135-145); TOTAL PROTEIN 6.4 G/DL (6.4-8.2)
[2017-01-19 11:36] LABS: BASOPHILS # (AUTO) 0.1 10^3/uL (0.0-0.1); BASOPHILS % (AUTO) 0 % (0-10); EOSINOPHILS # (AUTO) 0.4 10^3/uL (0.0-0.3); EOSINOPHILS % (AUTO) 3 % (0-10); LYMPHOCYTES # (AUTO) 6.8 X 10^3 (1.0-4.0); LYMPHOCYTES % (AUTO) 46 % (12-44); MEAN CORPUSCULAR HEMOGLOBIN 29 PG (25-34); MEAN CORPUSCULAR HGB CONC 33 G/DL (32-36); MEAN CORPUSCULAR VOLUME 89 FL (80-99); MEAN PLATELET VOLUME 11.7 FL (7.4-10.4); MONOCYTES # (AUTO) 1.2 X 10^3 (0.0-1.0); MONOCYTES % (AUTO) 8 % (0-12); NEUTROPHILS # (AUTO) 6.2 X 10^3 (1.8-7.8); NEUTROPHILS % (AUTO) 42 % (42-75); PLATELET COUNT 210 10^3/uL (130-400); RED BLOOD COUNT 4.51 10^6/uL (4.35-5.85); RED CELL DISTRIBUTION WIDTH 13.3 % (10.0-14.5); WHITE BLOOD COUNT 14.7 10^3/uL (4.3-11.0)
[2017-01-26 09:50] LABS: BASOPHILS # (AUTO) 0.1 10^3/uL (0.0-0.1); BASOPHILS % (AUTO) 0 % (0-10); EOSINOPHILS # (AUTO) 0.4 10^3/uL (0.0-0.3); EOSINOPHILS % (AUTO) 3 % (0-10); LYMPHOCYTES # (AUTO) 6.5 X 10^3 (1.0-4.0); LYMPHOCYTES % (AUTO) 50 % (12-44); MEAN CORPUSCULAR HEMOGLOBIN 29 PG (25-34); MEAN CORPUSCULAR HGB CONC 33 G/DL (32-36); MEAN CORPUSCULAR VOLUME 88 FL (80-99); MEAN PLATELET VOLUME 11.6 FL (7.4-10.4); MONOCYTES # (AUTO) 1.1 X 10^3 (0.0-1.0); MONOCYTES % (AUTO) 9 % (0-12); NEUTROPHILS # (AUTO) 4.8 X 10^3 (1.8-7.8); NEUTROPHILS % (AUTO) 37 % (42-75); PLATELET COUNT 211 10^3/uL (130-400); RED BLOOD COUNT 4.46 10^6/uL (4.35-5.85); RED CELL DISTRIBUTION WIDTH 13.6 % (10.0-14.5); WHITE BLOOD COUNT 12.8 10^3/uL (4.3-11.0)
[2017-01-26 10:28] LABS: ALANINE AMINOTRANSFERASE 16 U/L (0-55); ALBUMIN 3.9 G/DL (3.2-4.5); ANION GAP 7 MMOL/L (5-14); ASPARTATE AMINO TRANSFERASE 21 U/L (5-34); BILIRUBIN,TOTAL 0.3 MG/DL (0.1-1.0); BLOOD UREA NITROGEN 15 MG/DL (7-18); BUN/CREATININE RATIO 17; CALCIUM 8.8 MG/DL (8.5-10.1); CARBON DIOXIDE 31 MMOL/L (21-32); CHLORIDE 103 MMOL/L (98-107); GFR ESTIMATED > 60; GLUCOSE 138 MG/DL (70-105); POTASSIUM 3.5 MMOL/L (3.6-5.0); SODIUM 141 MMOL/L (135-145); TOTAL PROTEIN 6.5 G/DL (6.4-8.2)
== END 2017-02-01 | disposition home or self-care (01) ==
LOC: ONC 09:34
PROVIDERS: ATTEND Internal Medicine Hematology & Oncology
DX: D72.820 Lymphocytosis (symptomatic) (principal); I25.10 Atherosclerotic heart disease of native coronary artery without angina pectoris; E87.6 Hypokalemia; I10 Essential (primary) hypertension; E78.5 Hyperlipidemia, unspecified; E11.9 Type 2 diabetes mellitus without complications; J44.9 Chronic obstructive pulmonary disease, unspecified; G47.30 Sleep apnea, unspecified; E66.01 Morbid (severe) obesity due to excess calories; Z68.43 Body mass index [BMI] 50.0-59.9, adult; Z79.899 Other long term (current) drug therapy; Z95.5 Presence of coronary angioplasty implant and graft
CPT/HCPCS: 36415; 36591; 38221; 80053; 82232; 83615; 85007; 85025; 85027; 85045; 88184; 88185; 88305; 88311; 88313; 99213

== ENCOUNTER → 2017-05-03 | Outpatient (RCR) | payer MEDICARE ==
[2017-02-02 13:55] LABS: BASOPHILS # (AUTO) 0.1 10^3/uL (0.0-0.1); BASOPHILS % (AUTO) 1 % (0-10); EOSINOPHILS # (AUTO) 0.5 10^3/uL (0.0-0.3); EOSINOPHILS % (AUTO) 4 % (0-10); LYMPHOCYTES # (AUTO) 6.8 X 10^3 (1.0-4.0); LYMPHOCYTES % (AUTO) 48 % (12-44); MEAN CORPUSCULAR HEMOGLOBIN 29 PG (25-34); MEAN CORPUSCULAR HGB CONC 33 G/DL (32-36); MEAN CORPUSCULAR VOLUME 88 FL (80-99); MEAN PLATELET VOLUME 11.2 FL (7.4-10.4); MONOCYTES # (AUTO) 1.1 X 10^3 (0.0-1.0); MONOCYTES % (AUTO) 8 % (0-12); NEUTROPHILS # (AUTO) 5.6 X 10^3 (1.8-7.8); NEUTROPHILS % (AUTO) 40 % (42-75); PLATELET COUNT 254 10^3/uL (130-400); RED BLOOD COUNT 4.44 10^6/uL (4.35-5.85); RED CELL DISTRIBUTION WIDTH 13.2 % (10.0-14.5); WHITE BLOOD COUNT 14.1 10^3/uL (4.3-11.0)
[2017-02-02 14:24] LABS: ANION GAP 11 MMOL/L (5-14); BLOOD UREA NITROGEN 10 MG/DL (7-18); BUN/CREATININE RATIO 10; CALCIUM 8.8 MG/DL (8.5-10.1); CARBON DIOXIDE 32 MMOL/L (21-32); CHLORIDE 99 MMOL/L (98-107); CREATININE SERUM 0.96 MG/DL (0.60-1.30); GFR ESTIMATED > 60; GLUCOSE 128 MG/DL (70-105); POTASSIUM 3.3 MMOL/L (3.6-5.0); SODIUM 142 MMOL/L (135-145)
[2017-02-09 13:51] LABS: BASOPHILS % (AUTO) 0 % (0-10); EOSINOPHILS # (AUTO) 0.2 10^3/uL (0.0-0.3); EOSINOPHILS % (AUTO) 1 % (0-10); LYMPHOCYTES # (AUTO) 6.1 X 10^3 (1.0-4.0); LYMPHOCYTES % (AUTO) 34 % (12-44); MEAN CORPUSCULAR HEMOGLOBIN 29 PG (25-34); MEAN CORPUSCULAR HGB CONC 33 G/DL (32-36); MEAN CORPUSCULAR VOLUME 90 FL (80-99); MEAN PLATELET VOLUME 12.3 FL (7.4-10.4); MONOCYTES % (AUTO) 6 % (0-12); NEUTROPHILS # (AUTO) 10.8 X 10^3 (1.8-7.8); NEUTROPHILS % (AUTO) 60 % (42-75); PLATELET COUNT 233 10^3/uL (130-400); RED BLOOD COUNT 4.47 10^6/uL (4.35-5.85); RED CELL DISTRIBUTION WIDTH 13.3 % (10.0-14.5); WHITE BLOOD COUNT 18.2 10^3/uL (4.3-11.0)
[2017-02-09 14:05] LABS: ALANINE AMINOTRANSFERASE 20 U/L (0-55); ALBUMIN 3.9 G/DL (3.2-4.5); ANION GAP 10 MMOL/L (5-14); ASPARTATE AMINO TRANSFERASE 22 U/L (5-34); BILIRUBIN,TOTAL 0.3 MG/DL (0.1-1.0); BLOOD UREA NITROGEN 14 MG/DL (7-18); BUN/CREATININE RATIO 14; CALCIUM 8.3 MG/DL (8.5-10.1); CARBON DIOXIDE 30 MMOL/L (21-32); CHLORIDE 101 MMOL/L (98-107); CREATININE SERUM 1.02 MG/DL (0.60-1.30); GFR ESTIMATED > 60; GLUCOSE 216 MG/DL (70-105); LACTATE DEHYDROGENASE 264 U/L (125-220); POTASSIUM 3.6 MMOL/L (3.6-5.0); SODIUM 141 MMOL/L (135-145); TOTAL PROTEIN 6.6 G/DL (6.4-8.2); URIC ACID 10.8 MG/DL (2.6-7.2)
[2017-02-16 11:27] LABS: BASOPHILS % (AUTO) 0 % (0-10); EOSINOPHILS # (AUTO) 0.2 10^3/uL (0.0-0.3); EOSINOPHILS % (AUTO) 1 % (0-10); LYMPHOCYTES % (AUTO) 39 % (12-44); MEAN CORPUSCULAR HEMOGLOBIN 29 PG (25-34); MEAN CORPUSCULAR HGB CONC 33 G/DL (32-36); MEAN CORPUSCULAR VOLUME 88 FL (80-99); MEAN PLATELET VOLUME 11.6 FL (7.4-10.4); MONOCYTES # (AUTO) 1.1 X 10^3 (0.0-1.0); MONOCYTES % (AUTO) 6 % (0-12); NEUTROPHILS # (AUTO) 9.6 X 10^3 (1.8-7.8); NEUTROPHILS % (AUTO) 53 % (42-75); PLATELET COUNT 242 10^3/uL (130-400); RED BLOOD COUNT 4.46 10^6/uL (4.35-5.85); RED CELL DISTRIBUTION WIDTH 13.3 % (10.0-14.5)
[2017-02-16 11:40] LABS: ANION GAP 11 MMOL/L (5-14); BLOOD UREA NITROGEN 12 MG/DL (7-18); BUN/CREATININE RATIO 14; CALCIUM 8.7 MG/DL (8.5-10.1); CARBON DIOXIDE 31 MMOL/L (21-32); CHLORIDE 102 MMOL/L (98-107); CREATININE SERUM 0.83 MG/DL (0.60-1.30); GFR ESTIMATED > 60; GLUCOSE 62 MG/DL (70-105); POTASSIUM 3.1 MMOL/L (3.6-5.0); SODIUM 144 MMOL/L (135-145)
[2017-02-23 12:37] LABS: BASOPHILS # (AUTO) 0.1 10^3/uL (0.0-0.1); BASOPHILS % (AUTO) 1 % (0-10); EOSINOPHILS # (AUTO) 0.4 10^3/uL (0.0-0.3); EOSINOPHILS % (AUTO) 3 % (0-10); LYMPHOCYTES # (AUTO) 6.4 X 10^3 (1.0-4.0); LYMPHOCYTES % (AUTO) 46 % (12-44); MEAN CORPUSCULAR HEMOGLOBIN 29 PG (25-34); MEAN CORPUSCULAR HGB CONC 32 G/DL (32-36); MEAN CORPUSCULAR VOLUME 90 FL (80-99); MEAN PLATELET VOLUME 11.8 FL (7.4-10.4); MONOCYTES % (AUTO) 7 % (0-12); NEUTROPHILS # (AUTO) 6.1 X 10^3 (1.8-7.8); NEUTROPHILS % (AUTO) 44 % (42-75); PLATELET COUNT 222 10^3/uL (130-400); RED BLOOD COUNT 4.29 10^6/uL (4.35-5.85); RED CELL DISTRIBUTION WIDTH 13.3 % (10.0-14.5); WHITE BLOOD COUNT 13.9 10^3/uL (4.3-11.0)
[2017-02-23 13:00] LABS: ANION GAP 12 MMOL/L (5-14); BLOOD UREA NITROGEN 20 MG/DL (7-18); BUN/CREATININE RATIO 22; CALCIUM 8.9 MG/DL (8.5-10.1); CARBON DIOXIDE 27 MMOL/L (21-32); CHLORIDE 105 MMOL/L (98-107); CREATININE SERUM 0.89 MG/DL (0.60-1.30); GFR ESTIMATED > 60; GLUCOSE 129 MG/DL (70-105); POTASSIUM 3.1 MMOL/L (3.6-5.0); SODIUM 144 MMOL/L (135-145)
[2017-03-02 11:02] LABS: BASOPHILS % (AUTO) 0 % (0-10); EOSINOPHILS # (AUTO) 0.3 10^3/uL (0.0-0.3); EOSINOPHILS % (AUTO) 2 % (0-10); LYMPHOCYTES % (AUTO) 41 % (12-44); MEAN CORPUSCULAR HEMOGLOBIN 29 PG (25-34); MEAN CORPUSCULAR HGB CONC 33 G/DL (32-36); MEAN CORPUSCULAR VOLUME 89 FL (80-99); MEAN PLATELET VOLUME 10.9 FL (7.4-10.4); MONOCYTES # (AUTO) 0.9 X 10^3 (0.0-1.0); MONOCYTES % (AUTO) 6 % (0-12); NEUTROPHILS # (AUTO) 7.3 X 10^3 (1.8-7.8); NEUTROPHILS % (AUTO) 50 % (42-75); PLATELET COUNT 244 10^3/uL (130-400); RED CELL DISTRIBUTION WIDTH 13.4 % (10.0-14.5); WHITE BLOOD COUNT 14.6 10^3/uL (4.3-11.0)
[2017-03-02 12:04] LABS: ANION GAP 8 MMOL/L (5-14); BLOOD UREA NITROGEN 15 MG/DL (7-18); BUN/CREATININE RATIO 18; CARBON DIOXIDE 33 MMOL/L (21-32); CHLORIDE 102 MMOL/L (98-107); CREATININE SERUM 0.85 MG/DL (0.60-1.30); GFR ESTIMATED > 60; GLUCOSE 87 MG/DL (70-105); POTASSIUM 3.3 MMOL/L (3.6-5.0); SODIUM 143 MMOL/L (135-145)
[2017-03-03 07:26] LABS: TULAREMIA ANTIBODY <1:20
[2017-03-03 12:51] LABS: LYME AB G M 0.04 Index (0.00-0.89)
[2017-03-03 14:29] LABS: EHRLICHIA CHAFFEENSIS G ABY <1:16 (<1:16)
[2017-03-06 07:25] LABS: IGG ROCKY MOUNTAIN SPOTTED FEV <1:16 (<1:16); IGM ROCKY MOUNTAIN SPOTTED FEV <1:10 (<1:10); LYME AB INTERP Negative (Negative)
[2017-03-08 13:52] LABS: BASOPHILS % (AUTO) 0 % (0-10); EOSINOPHILS # (AUTO) 0.5 10^3/uL (0.0-0.3); EOSINOPHILS % (AUTO) 3 % (0-10); LYMPHOCYTES # (AUTO) 7.1 X 10^3 (1.0-4.0); LYMPHOCYTES % (AUTO) 44 % (12-44); MEAN CORPUSCULAR HEMOGLOBIN 29 PG (25-34); MEAN CORPUSCULAR HGB CONC 33 G/DL (32-36); MEAN CORPUSCULAR VOLUME 89 FL (80-99); MEAN PLATELET VOLUME 12.2 FL (7.4-10.4); MONOCYTES # (AUTO) 1.3 X 10^3 (0.0-1.0); MONOCYTES % (AUTO) 8 % (0-12); NEUTROPHILS # (AUTO) 7.2 X 10^3 (1.8-7.8); NEUTROPHILS % (AUTO) 45 % (42-75); PLATELET COUNT 242 10^3/uL (130-400); RED BLOOD COUNT 4.27 10^6/uL (4.35-5.85); RED CELL DISTRIBUTION WIDTH 13.4 % (10.0-14.5); WHITE BLOOD COUNT 16.1 10^3/uL (4.3-11.0)
[2017-03-08 14:12] LABS: ALANINE AMINOTRANSFERASE 18 U/L (0-55); ALBUMIN 4.1 GM/DL (3.2-4.5); ANION GAP 13 MMOL/L (5-14); ASPARTATE AMINO TRANSFERASE 24 U/L (5-34); BILIRUBIN,TOTAL 0.3 MG/DL (0.1-1.0); BLOOD UREA NITROGEN 15 MG/DL (7-18); BUN/CREATININE RATIO 15 (0-20); CALCIUM 9.5 MG/DL (8.5-10.1); CARBON DIOXIDE 30 MMOL/L (21-32); CHLORIDE 101 MMOL/L (98-107); CREATININE SERUM 1.03 MG/DL (0.60-1.30); GFR ESTIMATED > 60; GLUCOSE 98 MG/DL (70-105); LACTATE DEHYDROGENASE 328 U/L (125-220); POTASSIUM 2.9 MMOL/L (3.6-5.0); SODIUM 144 MMOL/L (135-145); TOTAL PROTEIN 7.4 GM/DL (6.4-8.2); URIC ACID 7.3 MG/DL (2.6-7.2)
[2017-03-08 14:33] LABS: THYROID STIMULATING HORMONE 1.97 UIU/ML (0.35-4.94)
[2017-03-16 12:25] LABS: BASOPHILS # (AUTO) 0.1 10^3/uL (0.0-0.1); BASOPHILS % (AUTO) 0 % (0-10); EOSINOPHILS # (AUTO) 0.4 10^3/uL (0.0-0.3); EOSINOPHILS % (AUTO) 3 % (0-10); LYMPHOCYTES % (AUTO) 49 % (12-44); MEAN CORPUSCULAR HEMOGLOBIN 29 PG (25-34); MEAN CORPUSCULAR HGB CONC 33 G/DL (32-36); MEAN CORPUSCULAR VOLUME 89 FL (80-99); MEAN PLATELET VOLUME 11.8 FL (7.4-10.4); MONOCYTES % (AUTO) 7 % (0-12); NEUTROPHILS % (AUTO) 42 % (42-75); PLATELET COUNT 247 10^3/uL (130-400); RED BLOOD COUNT 4.27 10^6/uL (4.35-5.85); RED CELL DISTRIBUTION WIDTH 13.6 % (10.0-14.5); WHITE BLOOD COUNT 14.5 10^3/uL (4.3-11.0)
[2017-03-16 12:39] LABS: ANION GAP 11 MMOL/L (5-14); BLOOD UREA NITROGEN 21 MG/DL (7-18); BUN/CREATININE RATIO 20 (0-20); CARBON DIOXIDE 32 MMOL/L (21-32); CHLORIDE 101 MMOL/L (98-107); CREATININE SERUM 1.06 MG/DL (0.60-1.30); GFR ESTIMATED > 60; GLUCOSE 145 MG/DL (70-105); HEMOLYSIS 23 (-100-29); ICTERUS 0.2 (-100-1.9); LIPEMIA 32 (-100-49); POTASSIUM 3.3 MMOL/L (3.6-5.0); SODIUM 144 MMOL/L (135-145)
[2017-03-29 15:03] LABS: BASOPHILS % (AUTO) 0 % (0-10); EOSINOPHILS # (AUTO) 0.3 10^3/uL (0.0-0.3); EOSINOPHILS % (AUTO) 2 % (0-10); LYMPHOCYTES # (AUTO) 5.4 X 10^3 (1.0-4.0); LYMPHOCYTES % (AUTO) 38 % (12-44); MEAN CORPUSCULAR HEMOGLOBIN 29 PG (25-34); MEAN CORPUSCULAR HGB CONC 32 G/DL (32-36); MEAN CORPUSCULAR VOLUME 90 FL (80-99); MEAN PLATELET VOLUME 11.4 FL (7.4-10.4); MONOCYTES # (AUTO) 1.1 X 10^3 (0.0-1.0); MONOCYTES % (AUTO) 8 % (0-12); NEUTROPHILS # (AUTO) 7.6 X 10^3 (1.8-7.8); NEUTROPHILS % (AUTO) 53 % (42-75); PLATELET COUNT 225 10^3/uL (130-400); RED BLOOD COUNT 3.92 10^6/uL (4.35-5.85); RED CELL DISTRIBUTION WIDTH 14.3 % (10.0-14.5); WHITE BLOOD COUNT 14.3 10^3/uL (4.3-11.0)
[2017-03-29 15:51] LABS: ANION GAP 11 MMOL/L (5-14); BLOOD UREA NITROGEN 15 MG/DL (7-18); BUN/CREATININE RATIO 18; CALCIUM 8.5 MG/DL (8.5-10.1); CARBON DIOXIDE 29 MMOL/L (21-32); CHLORIDE 104 MMOL/L (98-107); CREATININE SERUM 0.84 MG/DL (0.60-1.30); GFR ESTIMATED > 60; GLUCOSE 105 MG/DL (70-105); POTASSIUM 3.9 MMOL/L (3.6-5.0); SODIUM 144 MMOL/L (135-145)
[2017-04-05 14:15] LABS: BASOPHILS # (AUTO) 0.1 10^3/uL (0.0-0.1); BASOPHILS % (AUTO) 0 % (0-10); EOSINOPHILS # (AUTO) 0.4 10^3/uL (0.0-0.3); EOSINOPHILS % (AUTO) 3 % (0-10); LYMPHOCYTES # (AUTO) 6.2 X 10^3 (1.0-4.0); LYMPHOCYTES % (AUTO) 42 % (12-44); MEAN CORPUSCULAR HEMOGLOBIN 29 PG (25-34); MEAN CORPUSCULAR HGB CONC 32 G/DL (32-36); MEAN CORPUSCULAR VOLUME 90 FL (80-99); MONOCYTES # (AUTO) 1.1 X 10^3 (0.0-1.0); MONOCYTES % (AUTO) 7 % (0-12); NEUTROPHILS # (AUTO) 7.1 X 10^3 (1.8-7.8); NEUTROPHILS % (AUTO) 48 % (42-75); PLATELET COUNT 286 10^3/uL (130-400); RED BLOOD COUNT 3.97 10^6/uL (4.35-5.85); RED CELL DISTRIBUTION WIDTH 14.5 % (10.0-14.5); WHITE BLOOD COUNT 14.8 10^3/uL (4.3-11.0)
[2017-04-05 14:43] LABS: ALANINE AMINOTRANSFERASE 22 U/L (0-55); ALBUMIN 3.8 GM/DL (3.2-4.5); ANION GAP 10 MMOL/L (5-14); ASPARTATE AMINO TRANSFERASE 23 U/L (5-34); BILIRUBIN,TOTAL 0.3 MG/DL (0.1-1.0); BLOOD UREA NITROGEN 11 MG/DL (7-18); BUN/CREATININE RATIO 10; CARBON DIOXIDE 32 MMOL/L (21-32); CHLORIDE 100 MMOL/L (98-107); CREATININE SERUM 1.11 MG/DL (0.60-1.30); GFR ESTIMATED > 60; GLUCOSE 111 MG/DL (70-105); LACTATE DEHYDROGENASE 223 U/L (125-220); SODIUM 142 MMOL/L (135-145); TOTAL PROTEIN 6.7 GM/DL (6.4-8.2); URIC ACID 8.3 MG/DL (2.6-7.2)
[2017-04-12 09:39] LABS: BASOPHILS # (AUTO) 0.1 10^3/uL (0.0-0.1); BASOPHILS % (AUTO) 0 % (0-10); EOSINOPHILS # (AUTO) 0.4 10^3/uL (0.0-0.3); EOSINOPHILS % (AUTO) 3 % (0-10); LYMPHOCYTES # (AUTO) 5.9 X 10^3 (1.0-4.0); LYMPHOCYTES % (AUTO) 46 % (12-44); MEAN CORPUSCULAR HEMOGLOBIN 29 PG (25-34); MEAN CORPUSCULAR HGB CONC 32 G/DL (32-36); MEAN CORPUSCULAR VOLUME 90 FL (80-99); MEAN PLATELET VOLUME 10.9 FL (7.4-10.4); MONOCYTES # (AUTO) 1.1 X 10^3 (0.0-1.0); MONOCYTES % (AUTO) 8 % (0-12); NEUTROPHILS # (AUTO) 5.6 X 10^3 (1.8-7.8); NEUTROPHILS % (AUTO) 43 % (42-75); PLATELET COUNT 230 10^3/uL (130-400); RED BLOOD COUNT 3.99 10^6/uL (4.35-5.85); RED CELL DISTRIBUTION WIDTH 14.7 % (10.0-14.5)
[2017-04-12 09:59] LABS: ANION GAP 12 MMOL/L (5-14); BLOOD UREA NITROGEN 12 MG/DL (7-18); BUN/CREATININE RATIO 14; CALCIUM 8.7 MG/DL (8.5-10.1); CARBON DIOXIDE 29 MMOL/L (21-32); CHLORIDE 103 MMOL/L (98-107); CREATININE SERUM 0.87 MG/DL (0.60-1.30); GFR ESTIMATED > 60; GLUCOSE 97 MG/DL (70-105); POTASSIUM 3.3 MMOL/L (3.6-5.0); SODIUM 144 MMOL/L (135-145)
[2017-04-19 10:45] LABS: BASOPHILS # (AUTO) 0.1 10^3/uL (0.0-0.1); BASOPHILS % (AUTO) 0 % (0-10); EOSINOPHILS # (AUTO) 0.4 10^3/uL (0.0-0.3); EOSINOPHILS % (AUTO) 3 % (0-10); LYMPHOCYTES # (AUTO) 5.3 X 10^3 (1.0-4.0); LYMPHOCYTES % (AUTO) 42 % (12-44); MEAN CORPUSCULAR HEMOGLOBIN 29 PG (25-34); MEAN CORPUSCULAR HGB CONC 33 G/DL (32-36); MEAN CORPUSCULAR VOLUME 91 FL (80-99); MEAN PLATELET VOLUME 11.5 FL (7.4-10.4); MONOCYTES # (AUTO) 0.9 X 10^3 (0.0-1.0); MONOCYTES % (AUTO) 7 % (0-12); NEUTROPHILS % (AUTO) 47 % (42-75); PLATELET COUNT 224 10^3/uL (130-400); RED BLOOD COUNT 3.88 10^6/uL (4.35-5.85); RED CELL DISTRIBUTION WIDTH 14.9 % (10.0-14.5); WHITE BLOOD COUNT 12.6 10^3/uL (4.3-11.0)
[2017-04-19 11:14] LABS: ANION GAP 4 MMOL/L (5-14); BLOOD UREA NITROGEN 11 MG/DL (7-18); BUN/CREATININE RATIO 13; CARBON DIOXIDE 34 MMOL/L (21-32); CHLORIDE 103 MMOL/L (98-107); CREATININE SERUM 0.83 MG/DL (0.60-1.30); GFR ESTIMATED > 60; GLUCOSE 142 MG/DL (70-105); POTASSIUM 3.9 MMOL/L (3.6-5.0); SODIUM 141 MMOL/L (135-145)
[2017-04-26 15:01] LABS: BASOPHILS # (AUTO) 0.1 10^3/uL (0.0-0.1); BASOPHILS % (AUTO) 0 % (0-10); EOSINOPHILS # (AUTO) 0.4 10^3/uL (0.0-0.3); EOSINOPHILS % (AUTO) 3 % (0-10); LYMPHOCYTES # (AUTO) 5.4 X 10^3 (1.0-4.0); LYMPHOCYTES % (AUTO) 41 % (12-44); MEAN CORPUSCULAR HEMOGLOBIN 29 PG (25-34); MEAN CORPUSCULAR HGB CONC 33 G/DL (32-36); MEAN CORPUSCULAR VOLUME 90 FL (80-99); MONOCYTES # (AUTO) 0.9 X 10^3 (0.0-1.0); MONOCYTES % (AUTO) 7 % (0-12); NEUTROPHILS # (AUTO) 6.3 X 10^3 (1.8-7.8); NEUTROPHILS % (AUTO) 48 % (42-75); PLATELET COUNT 246 10^3/uL (130-400); RED BLOOD COUNT 4.18 10^6/uL (4.35-5.85); RED CELL DISTRIBUTION WIDTH 15.2 % (10.0-14.5); WHITE BLOOD COUNT 13.1 10^3/uL (4.3-11.0)
[2017-04-26 15:24] LABS: ALANINE AMINOTRANSFERASE 18 U/L (0-55); ALBUMIN 4.1 GM/DL (3.2-4.5); ANION GAP 11 MMOL/L (5-14); ASPARTATE AMINO TRANSFERASE 21 U/L (5-34); BILIRUBIN,TOTAL 0.7 MG/DL (0.1-1.0); BLOOD UREA NITROGEN 11 MG/DL (7-18); BUN/CREATININE RATIO 12; CALCIUM 9.1 MG/DL (8.5-10.1); CARBON DIOXIDE 31 MMOL/L (21-32); CHLORIDE 99 MMOL/L (98-107); CREATININE SERUM 0.89 MG/DL (0.60-1.30); GFR ESTIMATED > 60; GLUCOSE 113 MG/DL (70-105); LACTATE DEHYDROGENASE 218 U/L (125-220); POTASSIUM 3.1 MMOL/L (3.6-5.0); SODIUM 141 MMOL/L (135-145); TOTAL PROTEIN 7.2 GM/DL (6.4-8.2); URIC ACID 5.8 MG/DL (2.6-7.2)
[2017-04-26 15:47] LABS: THYROID STIMULATING HORMONE 2.73 UIU/ML (0.35-4.94)
[2017-05-03 14:41] LABS: BASOPHILS % (AUTO) 0 % (0-10); EOSINOPHILS # (AUTO) 0.5 10^3/uL (0.0-0.3); EOSINOPHILS % (AUTO) 4 % (0-10); LYMPHOCYTES # (AUTO) 5.1 X 10^3 (1.0-4.0); LYMPHOCYTES % (AUTO) 37 % (12-44); MEAN CORPUSCULAR HEMOGLOBIN 29 PG (25-34); MEAN CORPUSCULAR HGB CONC 32 G/DL (32-36); MEAN CORPUSCULAR VOLUME 91 FL (80-99); MEAN PLATELET VOLUME 11.7 FL (7.4-10.4); MONOCYTES # (AUTO) 1.1 X 10^3 (0.0-1.0); MONOCYTES % (AUTO) 8 % (0-12); NEUTROPHILS % (AUTO) 51 % (42-75); PLATELET COUNT 240 10^3/uL (130-400); RED BLOOD COUNT 3.95 10^6/uL (4.35-5.85); RED CELL DISTRIBUTION WIDTH 14.9 % (10.0-14.5); WHITE BLOOD COUNT 13.8 10^3/uL (4.3-11.0)
[2017-05-03 15:11] LABS: ANION GAP 9 MMOL/L (5-14); BLOOD UREA NITROGEN 15 MG/DL (7-18); BUN/CREATININE RATIO 13; CALCIUM 8.5 MG/DL (8.5-10.1); CARBON DIOXIDE 31 MMOL/L (21-32); CHLORIDE 101 MMOL/L (98-107); CREATININE SERUM 1.17 MG/DL (0.60-1.30); GFR ESTIMATED > 60; GLUCOSE 147 MG/DL (70-105); POTASSIUM 3.6 MMOL/L (3.6-5.0); SODIUM 141 MMOL/L (135-145)
== END | disposition home or self-care (01) ==
LOC: ONC 02-02 13:41
PROVIDERS: ATTEND Internal Medicine Hematology & Oncology
DX: D72.820 Lymphocytosis (symptomatic) (principal); I25.10 Atherosclerotic heart disease of native coronary artery without angina pectoris; E87.6 Hypokalemia; I10 Essential (primary) hypertension; E78.5 Hyperlipidemia, unspecified; E11.9 Type 2 diabetes mellitus without complications; J44.9 Chronic obstructive pulmonary disease, unspecified; G47.30 Sleep apnea, unspecified; E66.01 Morbid (severe) obesity due to excess calories; Z68.43 Body mass index [BMI] 50.0-59.9, adult; Z79.899 Other long term (current) drug therapy; Z95.5 Presence of coronary angioplasty implant and graft
CPT/HCPCS: 36591; 80048; 80053; 82232; 83615; 84439; 84443; 84550; 85025; 86618; 86666; 86668; 86757; 99213

== ENCOUNTER 2017-06-15 09:36 | Outpatient (RCR) | payer MEDICARE, OTHER ==
[2017-05-17 12:51] LABS: BASOPHILS % (AUTO) 0 % (0-10); EOSINOPHILS # (AUTO) 0.2 10^3/uL (0.0-0.3); EOSINOPHILS % (AUTO) 2 % (0-10); LYMPHOCYTES # (AUTO) 5.5 X 10^3 (1.0-4.0); LYMPHOCYTES % (AUTO) 41 % (12-44); MEAN CORPUSCULAR HEMOGLOBIN 29 PG (25-34); MEAN CORPUSCULAR HGB CONC 32 G/DL (32-36); MEAN CORPUSCULAR VOLUME 90 FL (80-99); MEAN PLATELET VOLUME 12.2 FL (7.4-10.4); MONOCYTES % (AUTO) 7 % (0-12); NEUTROPHILS # (AUTO) 6.6 X 10^3 (1.8-7.8); NEUTROPHILS % (AUTO) 50 % (42-75); PLATELET COUNT 243 10^3/uL (130-400); RED BLOOD COUNT 3.96 10^6/uL (4.35-5.85); RED CELL DISTRIBUTION WIDTH 14.8 % (10.0-14.5); WHITE BLOOD COUNT 13.4 10^3/uL (4.3-11.0)
[2017-05-17 13:20] LABS: ALANINE AMINOTRANSFERASE 13 U/L (0-55); ALBUMIN 3.9 GM/DL (3.2-4.5); ANION GAP 12 MMOL/L (5-14); ASPARTATE AMINO TRANSFERASE 16 U/L (5-34); BILIRUBIN,TOTAL 0.3 MG/DL (0.1-1.0); BLOOD UREA NITROGEN 16 MG/DL (7-18); BUN/CREATININE RATIO 17; CALCIUM 8.7 MG/DL (8.5-10.1); CARBON DIOXIDE 31 MMOL/L (21-32); CHLORIDE 99 MMOL/L (98-107); CREATININE SERUM 0.94 MG/DL (0.60-1.30); GFR ESTIMATED > 60; GLUCOSE 168 MG/DL (70-105); LACTATE DEHYDROGENASE 207 U/L (125-220); SODIUM 142 MMOL/L (135-145); TOTAL PROTEIN 6.8 GM/DL (6.4-8.2)
[2017-06-07 09:37] LABS: BASOPHILS % (AUTO) 0 % (0-10); EOSINOPHILS # (AUTO) 0.3 10^3/uL (0.0-0.3); EOSINOPHILS % (AUTO) 3 % (0-10); LYMPHOCYTES % (AUTO) 37 % (12-44); MEAN CORPUSCULAR HEMOGLOBIN 29 PG (25-34); MEAN CORPUSCULAR HGB CONC 32 G/DL (32-36); MEAN CORPUSCULAR VOLUME 91 FL (80-99); MEAN PLATELET VOLUME 11.1 FL (7.4-10.4); MONOCYTES # (AUTO) 1.1 X 10^3 (0.0-1.0); MONOCYTES % (AUTO) 10 % (0-12); NEUTROPHILS # (AUTO) 5.3 X 10^3 (1.8-7.8); NEUTROPHILS % (AUTO) 50 % (42-75); PLATELET COUNT 250 10^3/uL (130-400); RED BLOOD COUNT 3.58 10^6/uL (4.35-5.85); RED CELL DISTRIBUTION WIDTH 14.1 % (10.0-14.5); WHITE BLOOD COUNT 10.7 10^3/uL (4.3-11.0)
[2017-06-07 10:03] LABS: ANION GAP 11 MMOL/L (5-14); BLOOD UREA NITROGEN 11 MG/DL (7-18); BUN/CREATININE RATIO 14; CALCIUM 8.5 MG/DL (8.5-10.1); CARBON DIOXIDE 26 MMOL/L (21-32); CHLORIDE 105 MMOL/L (98-107); CREATININE SERUM 0.77 MG/DL (0.60-1.30); GFR ESTIMATED > 60; GLUCOSE 77 MG/DL (70-105); POTASSIUM 3.4 MMOL/L (3.6-5.0); SODIUM 142 MMOL/L (135-145)
[2017-06-15 09:53] LABS: BASOPHILS % (AUTO) 0 % (0-10); EOSINOPHILS # (AUTO) 0.2 10^3/uL (0.0-0.3); EOSINOPHILS % (AUTO) 1 % (0-10); LYMPHOCYTES # (AUTO) 3.1 X 10^3 (1.0-4.0); LYMPHOCYTES % (AUTO) 25 % (12-44); MEAN CORPUSCULAR HEMOGLOBIN 29 PG (25-34); MEAN CORPUSCULAR HGB CONC 31 G/DL (32-36); MEAN CORPUSCULAR VOLUME 92 FL (80-99); MEAN PLATELET VOLUME 10.2 FL (7.4-10.4); MONOCYTES # (AUTO) 1.6 X 10^3 (0.0-1.0); MONOCYTES % (AUTO) 13 % (0-12); NEUTROPHILS # (AUTO) 7.6 X 10^3 (1.8-7.8); NEUTROPHILS % (AUTO) 61 % (42-75); PLATELET COUNT 240 10^3/uL (130-400); RED BLOOD COUNT 3.57 10^6/uL (4.35-5.85); RED CELL DISTRIBUTION WIDTH 14.8 % (10.0-14.5); WHITE BLOOD COUNT 12.4 10^3/uL (4.3-11.0)
[2017-06-15 10:22] LABS: ALANINE AMINOTRANSFERASE 15 U/L (0-55); ALBUMIN 3.6 GM/DL (3.2-4.5); ANION GAP 9 MMOL/L (5-14); ASPARTATE AMINO TRANSFERASE 21 U/L (5-34); BILIRUBIN,TOTAL 0.4 MG/DL (0.1-1.0); BLOOD UREA NITROGEN 14 MG/DL (7-18); BUN/CREATININE RATIO 18; CALCIUM 8.9 MG/DL (8.5-10.1); CARBON DIOXIDE 26 MMOL/L (21-32); CHLORIDE 107 MMOL/L (98-107); GFR ESTIMATED > 60; GLUCOSE 97 MG/DL (70-105); LACTATE DEHYDROGENASE 289 U/L (125-220); POTASSIUM 4.4 MMOL/L (3.6-5.0); SODIUM 142 MMOL/L (135-145); TOTAL PROTEIN 6.5 GM/DL (6.4-8.2); URIC ACID 4.6 MG/DL (2.6-7.2)
== END 2017-06-24 | disposition home or self-care (01) ==
LOC: ONC 09:36
PROVIDERS: ATTEND Internal Medicine Hematology & Oncology
DX: C91.10 Chronic lymphocytic leukemia of B-cell type not having achieved remission (principal); I25.10 Atherosclerotic heart disease of native coronary artery without angina pectoris; E87.6 Hypokalemia; I10 Essential (primary) hypertension; E78.5 Hyperlipidemia, unspecified; E11.9 Type 2 diabetes mellitus without complications; J44.9 Chronic obstructive pulmonary disease, unspecified; G47.30 Sleep apnea, unspecified; E66.01 Morbid (severe) obesity due to excess calories; Z68.43 Body mass index [BMI] 50.0-59.9, adult; Z79.899 Other long term (current) drug therapy; Z95.5 Presence of coronary angioplasty implant and graft
CPT/HCPCS: 36591; 80048; 80053; 82232; 83615; 84550; 85025

== ENCOUNTER 2017-09-21 08:39 | Outpatient (RCR) | payer MEDICARE, OTHER ==
[2017-06-29 10:39] LABS: BASOPHILS % (AUTO) 0 % (0-10); EOSINOPHILS # (AUTO) 0.3 10^3/uL (0.0-0.3); EOSINOPHILS % (AUTO) 2 % (0-10); HEMATOCRIT 33 % (40-54); HEMOGLOBIN 10.5 G/DL (13.3-17.7); LYMPHOCYTES % (AUTO) 36 % (12-44); MEAN CORPUSCULAR HEMOGLOBIN 29 PG (25-34); MEAN CORPUSCULAR HGB CONC 32 G/DL (32-36); MEAN CORPUSCULAR VOLUME 90 FL (80-99); MEAN PLATELET VOLUME 10.5 FL (7.4-10.4); MONOCYTES # (AUTO) 1.1 X 10^3 (0.0-1.0); MONOCYTES % (AUTO) 10 % (0-12); NEUTROPHILS # (AUTO) 5.6 X 10^3 (1.8-7.8); NEUTROPHILS % (AUTO) 51 % (42-75); PLATELET COUNT 228 10^3/uL (130-400); RED BLOOD COUNT 3.66 10^6/uL (4.35-5.85); WHITE BLOOD COUNT 11.1 10^3/uL (4.3-11.0)
[2017-07-12 10:02] LABS: BASOPHILS # (AUTO) 0.1 10^3/uL (0.0-0.1); BASOPHILS % (AUTO) 1 % (0-10); EOSINOPHILS # (AUTO) 0.4 10^3/uL (0.0-0.3); EOSINOPHILS % (AUTO) 3 % (0-10); HEMATOCRIT 35 % (40-54); HEMOGLOBIN 10.8 G/DL (13.3-17.7); LYMPHOCYTES # (AUTO) 4.6 X 10^3 (1.0-4.0); LYMPHOCYTES % (AUTO) 36 % (12-44); MEAN CORPUSCULAR HEMOGLOBIN 28 PG (25-34); MEAN CORPUSCULAR HGB CONC 31 G/DL (32-36); MEAN CORPUSCULAR VOLUME 90 FL (80-99); MEAN PLATELET VOLUME 12.3 FL (7.4-10.4); MONOCYTES # (AUTO) 1.4 X 10^3 (0.0-1.0); MONOCYTES % (AUTO) 11 % (0-12); NEUTROPHILS # (AUTO) 6.3 X 10^3 (1.8-7.8); NEUTROPHILS % (AUTO) 50 % (42-75); PLATELET COUNT 213 10^3/uL (130-400); RED BLOOD COUNT 3.85 10^6/uL (4.35-5.85); RED CELL DISTRIBUTION WIDTH 14.2 % (10.0-14.5); WHITE BLOOD COUNT 12.7 10^3/uL (4.3-11.0)
[2017-07-31 12:08] LABS: BASOPHILS # (AUTO) 0.1 10^3/uL (0.0-0.1); BASOPHILS % (AUTO) 1 % (0-10); EOSINOPHILS # (AUTO) 0.5 10^3/uL (0.0-0.3); EOSINOPHILS % (AUTO) 5 % (0-10); HEMATOCRIT 37 % (40-54); HEMOGLOBIN 11.7 G/DL (13.3-17.7); LYMPHOCYTES # (AUTO) 4.3 X 10^3 (1.0-4.0); LYMPHOCYTES % (AUTO) 44 % (12-44); MEAN CORPUSCULAR HEMOGLOBIN 27 PG (25-34); MEAN CORPUSCULAR HGB CONC 32 G/DL (32-36); MEAN CORPUSCULAR VOLUME 87 FL (80-99); MEAN PLATELET VOLUME 10.6 FL (7.4-10.4); MONOCYTES # (AUTO) 1.2 X 10^3 (0.0-1.0); MONOCYTES % (AUTO) 12 % (0-12); NEUTROPHILS # (AUTO) 3.8 X 10^3 (1.8-7.8); NEUTROPHILS % (AUTO) 39 % (42-75); PLATELET COUNT 292 10^3/uL (130-400); RED BLOOD COUNT 4.28 10^6/uL (4.35-5.85); RED CELL DISTRIBUTION WIDTH 14.2 % (10.0-14.5); WHITE BLOOD COUNT 9.9 10^3/uL (4.3-11.0)
[2017-08-16 09:56] LABS: BASOPHILS % (AUTO) 0 % (0-10); EOSINOPHILS # (AUTO) 0.4 10^3/uL (0.0-0.3); EOSINOPHILS % (AUTO) 4 % (0-10); HEMATOCRIT 35 % (40-54); HEMOGLOBIN 11.2 G/DL (13.3-17.7); LYMPHOCYTES # (AUTO) 4.3 X 10^3 (1.0-4.0); LYMPHOCYTES % (AUTO) 37 % (12-44); MEAN CORPUSCULAR HEMOGLOBIN 28 PG (25-34); MEAN CORPUSCULAR HGB CONC 32 G/DL (32-36); MEAN CORPUSCULAR VOLUME 87 FL (80-99); MEAN PLATELET VOLUME 11.7 FL (7.4-10.4); MONOCYTES % (AUTO) 9 % (0-12); NEUTROPHILS # (AUTO) 5.9 X 10^3 (1.8-7.8); NEUTROPHILS % (AUTO) 51 % (42-75); PLATELET COUNT 244 10^3/uL (130-400); RED BLOOD COUNT 4.06 10^6/uL (4.35-5.85); RED CELL DISTRIBUTION WIDTH 14.8 % (10.0-14.5); WHITE BLOOD COUNT 11.7 10^3/uL (4.3-11.0)
[2017-08-16 10:12] LABS: BUN/CREATININE RATIO 13; CALCIUM 8.7 MG/DL (8.5-10.1); CARBON DIOXIDE 30 MMOL/L (21-32); CHLORIDE 103 MMOL/L (98-107); CREATININE SERUM 1.03 MG/DL (0.60-1.30); GFR ESTIMATED > 60; GLUCOSE 154 MG/DL (70-105); POTASSIUM 3.6 MMOL/L (3.6-5.0); SODIUM 144 MMOL/L (135-145)
[2017-09-07 10:34] LABS: BASOPHILS % (AUTO) 0 % (0-10); EOSINOPHILS # (AUTO) 0.3 10^3/uL (0.0-0.3); EOSINOPHILS % (AUTO) 2 % (0-10); HEMATOCRIT 35 % (40-54); HEMOGLOBIN 11.2 G/DL (13.3-17.7); LYMPHOCYTES # (AUTO) 4.3 X 10^3 (1.0-4.0); LYMPHOCYTES % (AUTO) 40 % (12-44); MEAN CORPUSCULAR HEMOGLOBIN 28 PG (25-34); MEAN CORPUSCULAR HGB CONC 32 G/DL (32-36); MEAN CORPUSCULAR VOLUME 87 FL (80-99); MEAN PLATELET VOLUME 11.2 FL (7.4-10.4); MONOCYTES # (AUTO) 0.9 X 10^3 (0.0-1.0); MONOCYTES % (AUTO) 9 % (0-12); NEUTROPHILS # (AUTO) 5.2 X 10^3 (1.8-7.8); NEUTROPHILS % (AUTO) 48 % (42-75); PLATELET COUNT 264 10^3/uL (130-400); RED BLOOD COUNT 4.02 10^6/uL (4.35-5.85); RED CELL DISTRIBUTION WIDTH 14.9 % (10.0-14.5); WHITE BLOOD COUNT 10.7 10^3/uL (4.3-11.0)
[2017-09-07 10:55] LABS: ALANINE AMINOTRANSFERASE 14 U/L (0-55); ALBUMIN 3.8 GM/DL (3.2-4.5); ALKALINE PHOSPHATASE 86 U/L (40-136); BILIRUBIN,TOTAL 0.3 MG/DL (0.1-1.0); BUN/CREATININE RATIO 12; CALCIUM 8.3 MG/DL (8.5-10.1); CARBON DIOXIDE 31 MMOL/L (21-32); CHLORIDE 99 MMOL/L (98-107); CREATININE SERUM 0.86 MG/DL (0.60-1.30); GFR ESTIMATED > 60; GLUCOSE 128 MG/DL (70-105); POTASSIUM 3.3 MMOL/L (3.6-5.0); SODIUM 141 MMOL/L (135-145); TOTAL PROTEIN 6.8 GM/DL (6.4-8.2)
[2017-09-21 08:58] LABS: BASOPHILS % (AUTO) 0 % (0-10); EOSINOPHILS # (AUTO) 0.3 10^3/uL (0.0-0.3); EOSINOPHILS % (AUTO) 3 % (0-10); HEMATOCRIT 37 % (40-54); HEMOGLOBIN 11.6 G/DL (13.3-17.7); LYMPHOCYTES # (AUTO) 4.3 X 10^3 (1.0-4.0); LYMPHOCYTES % (AUTO) 39 % (12-44); MEAN CORPUSCULAR HEMOGLOBIN 28 PG (25-34); MEAN CORPUSCULAR HGB CONC 32 G/DL (32-36); MEAN CORPUSCULAR VOLUME 87 FL (80-99); MEAN PLATELET VOLUME 10.8 FL (7.4-10.4); MONOCYTES % (AUTO) 9 % (0-12); NEUTROPHILS # (AUTO) 5.4 X 10^3 (1.8-7.8); NEUTROPHILS % (AUTO) 49 % (42-75); PLATELET COUNT 266 10^3/uL (130-400); RED CELL DISTRIBUTION WIDTH 15.2 % (10.0-14.5)
[2017-09-28] MEDS ORDERED: DICL100G18 TOP (08:00)
[2017-09-28] MEDS ORDERED: DIAZ5TAB3 PO (08:00)
[2017-09-28] MEDS ORDERED: ALBU18HF2 INH (08:00)
[2017-09-28] MEDS ORDERED: ARIP30TA10 PO (08:00)
[2017-09-28] MEDS ORDERED: MONT10TA24 PO (08:00)
[2017-09-28] MEDS ORDERED: ALLO300T2 PO (08:00)
[2017-09-28] MEDS ORDERED: ESOM40CA52 PO (08:00)
[2017-09-28] MEDS ORDERED: FLUT16SP22 NSEACH (08:00)
[2017-09-28] MEDS ORDERED: NAPR500T4 PO (08:00)
[2017-09-28] MEDS ORDERED: ALBU2.5V4 NEB (09:13)
[2017-09-28] MEDS ORDERED: VORT20TA PO (09:13)
[2017-09-28] MEDS ORDERED: NORT25CA PO (09:13)
[2017-09-28] MEDS ORDERED: UMEC62.5 INH (09:13)
[2017-09-28] MEDS ORDERED: ASPI-983 PO (09:13)
[2017-09-28] MEDS ORDERED: METO-370 PO (09:34)
[2017-09-28] MEDS ORDERED: ALBU1.25 NEB (09:34)
[2017-09-28] MEDS ORDERED: IBRU140C PO (09:41)
[2017-09-28] MEDS ORDERED: LOSA100T3 PO (13:22)
[2017-09-29] MEDS ORDERED: CEFD300C3 PO (10:49)
== END 2017-09-27 | disposition home or self-care (01) ==
LOC: ONC 08:39
PROVIDERS: ATTEND Internal Medicine Hematology & Oncology
DX: C91.10 Chronic lymphocytic leukemia of B-cell type not having achieved remission (principal); I25.10 Atherosclerotic heart disease of native coronary artery without angina pectoris; E87.6 Hypokalemia; I10 Essential (primary) hypertension; E78.5 Hyperlipidemia, unspecified; E11.9 Type 2 diabetes mellitus without complications; J44.9 Chronic obstructive pulmonary disease, unspecified; G47.30 Sleep apnea, unspecified; E66.01 Morbid (severe) obesity due to excess calories; Z68.43 Body mass index [BMI] 50.0-59.9, adult; Z79.899 Other long term (current) drug therapy; Z95.5 Presence of coronary angioplasty implant and graft
CPT/HCPCS: 36591; 80048; 80053; 82232; 83615; 85025

== ENCOUNTER 2017-09-27 18:14 | Inpatient (IN) | payer MEDICARE ==
[~2017-09-27] VITALS: Ht 170.2 cm; Wt 166.6 kg
[2017-09-27] MEDS ORDERED: RT-ALBUTEROL/IPRATROPIUM 3 ML (DUONEB) VIAL ONE (19:11)
[2017-09-27] MEDS ORDERED: RT-ALBUTEROL SULF 2.5 MG/3 ML PRE-MIX VIAL INH STA (19:20)
[2017-09-27] MEDS ORDERED: RT-ALBUTEROL/IPRATROPIUM 3 ML (DUONEB) VIAL INH ONE (19:30)
--- NOTE | 2017-09-27 19:31 | ED Cough/URI ---
General Chief Complaint: Respiratory Problems Stated Complaint: TROUBLE BREATHING;COLD SYMPTOMS Nursing Triage Note: PT PRESENTS TO ER WITH COMPLAINT OF SOA AND COLD SYMPTOMS. STATES PT WAS AT NEUROLOGIST TODAY AND SPO2 WAS 84%, NEUROLOGIST INSTRUCTED PT TO TALK TO PCP. PCP INSTRUCTED PT TO COME TO ER FOR EVALUATION. Source: patient, spouse Exam Limitations: no limitations History of Present Illness Time seen by provider: 19:16 Allergies and Home Medications Allergies Coded Allergies: NKANo Known Allergies (Verified Allergy, Unknown, 09/27/17) Home Medications Albuterol Sulfate 2.5 Mg/3 Ml Solution, 2.5 MG IH Q6H PRN for SHORTNESS OF BREATH, (Reported) Albuterol Sulfate 8.5 Gm Hfa.aer.ad, 2 PUFF PO Q4H PRN for SHORTNESS OF BREATH, (Reported) Aripiprazole 30 Mg Tablet, 30 MG PO DAILY, (Reported) Aspirin 81 Mg Chew, 81 MG PO DAILY, (Reported) Atorvastatin Calcium 20 Mg Tablet, 20 MG PO DAILY, (Reported) Clonazepam 1 Mg Tablet, 1 MG PO DAILY, (Reported) Clonidine HCl 0.1 Mg Tablet, 0.1 MG PO BID, (Reported) Clopidogrel Bisulfate 75 Mg Tablet, 75 MG PO DAILY, (Reported) Divalproex Sodium 500 Mg Tab.er.24h, 500 MG PO BID, (Reported) Esomeprazole Magnesium 40 Mg Cap, 40 MG PO DAILY, (Reported) Ezetimibe 10 Mg Tablet, 10 MG PO DAILY, (Reported) Fluticasone Propionate 16 Gm Naspr, 2 SPRAYS NS DAILY, (Reported) Furosemide 40 Mg Tablet, 40 MG PO DAILY, (Reported) Gabapentin 300 Mg Capsule, 300 MG PO DAILY @ 1200 PRN for PAIN, (Reported) Gabapentin 300 Mg Capsule, 300 MG PO BID, (Reported) Insulin Aspart 300 Units/3 Ml Solution, SC AC, (Reported) USES SLIDING SCALE ABOVE 70 = 10 UNITS ABOVE 150= 12-13 UNITS ABOVE 200= 20 UNITS Insulin Glargine,Hum.rec.anlog 100 Unit/1 Ml Vial, 70 UNITS SC BID, (Reported) Levomilnacipran Hydrochloride 40 Mg Cap.sa.24h, 40 MG PO HS PRN for SLEEP, ( Reported) Liraglutide 0.6 Mg/0.1 Ml Pen.injctr, 1.8 MG INJ DAILY, (Reported) Losartan Potassium 50 Mg Tablet, 50 MG PO DAILY, (Reported) Metformin HCl 1,000 Mg Tablet, 1,000 MG PO BID, (Reported) Metoprolol Succinate 50 Mg Tab.sr.24h, 50 MG PO DAILY, (Reported) Montelukast Sodium 10 Mg Tablet, 10 MG PO DAILY, (Reported) Oxycodone HCl/Acetaminophen 1 Each Tablet, 1 TAB PO Q6H PRN for PAIN, (Reported) Potassium Chloride 20 Meq Tab.er.prt, 20 MEQ PO BID, (Reported) Quetiapine Fumarate 50 Mg Tablet, 150 MG PO HS, (Reported) TAKES 3 (50MG) TABLETS Tamsulosin HCl 0.4 Mg Cap.er.24h, 0.4 MG PO DAILY, (Reported) Tiotropium [place] 1 Inh Aerp, 1 CAP INH DAILY, (Reported) Vortioxetine Hydrobromide 10 Mg Tablet, 10 MG PO DAILY, (Reported) Zolpidem Tartrate 10 Mg Tablet, 10 MG PO HS, (Reported) Past Spodzbj-Tsfxfw-Xjabfs Hx Patient Social History Alcohol Use: Denies Use Recreational Drug Use: No Type Used: Cigars Recent Foreign Travel: No Contact w/Someone Who Travel: No Recent Infectious Disease Expo: No Recent Hopitalizations: Yes Physical Abuse: No Sexual Abuse: No Immunizations Up To Date Tetanus Booster (TDap): Unknown Date of Pneumonia Vaccine: Aug 19, 2014 Date of Influenza Vaccine: Jul 08, 2016 Seasonal Allergies Seasonal Allergies: No Surgeries History of Surgeries: Yes (SKIN CA REMOVALS, RT KNEE, RT WRIST, 2 HEART CATHS, epididymectomy) Surgeries: Coronary Stent, Orthopedic Respiratory History of Respiratory Disorde: Yes Respiratory Disorders: Asthma, Sleep Apnea Currently Using CPAP: Yes Cardiovascular History of Cardiac Disorders: Yes (heart cath x2-stents) Cardiac Disorders: Coronary Artery Disease, High Cholesterol, Hypertension Neurological History of Neurological Disord: Yes Neurological Disorders: Seizure Disorder Reproductive System Hx Reproductive Disorders: No Sexually Transmitted Disease: No HIV/AIDS: No Genitourinary Genitourinary Disorders: Renal Failure, UTI-Chronic Gastrointestinal History of Gastrointestinal Di: Yes Gastrointestinal Disorders: Gastroesophageal Reflux Musculoskeletal History of Musculoskeletal Dis: Yes Musculoskeletal Disorders: Arthritis, Chronic Back Pain Endocrine History of Endocrine Disorders: Yes (obesity) Endocrine Disorders: Diabetes, Insulin dep HEENT History of HEENT Disorders: No Cancer History of Cancer: Yes (B-cell lymphoma) Cancer: Leukemia, Skin Psychosocial History of Psychiatric Problem: Yes Behavioral Health Disorders: Bipolar Suicide Risk Score: 0 Integumentary History of Skin or Integumenta: No Blood Transfusions History of Blood Disorders: No Adverse Reaction to a Blood Tr: No Family Medical History Significant Family History: Cancer, Diabetes, Hypertension Family Medial History: Alcoholism G8 BROTHER Arthritis 19 FATHER Cataracts 19 FATHER Completed stroke 19 MOTHER Deafness or hearing loss 19 FATHER Diabetes mellitus 19 MOTHER Headache disorder 19 FATHER 19 MOTHER G8 BROTHER G8 SISTER Hypercholesterolemia 19 FATHER Hypertension 19 FATHER Prostate cancer G8 BROTHER Psychosocial problem 19 MOTHER Respiratory disorder 19 FATHER 19 MOTHER Visual disorder 19 MOTHER No Family History of: AIDS Abdominal aortic aneurysm [place]'s disease Alzheimer's disease Aphasia Asthma Cancer of mouth Cardiovascular disease Colon cancer Congenital disease Congenital heart disease Coronary thrombosis Cystic fibrosis Dementia Drug abuse Dysphasia Fibrocystic disease of breast Gastroenteritis Glaucoma Infertility Kidney disease Myocardial infarction Neoplasm Not obtainable due to adoption Osteoporosis Parkinson's disease Seizure disorder Severe allergy Thyroid disease Tuberculosis Physical Exam Vital Signs Vital Sign - Last 12Hours 09/27/17 19:00 Temp 99.3 Pulse 83 Resp 25 B/P (MAP) 186/66 (106) Pulse Ox 86 O2 Delivery Room Air Capillary Refill : Less Than 3 Seconds Progress/Results/Core Measures Suspected Sepsis Recent Fever Within 48 Hours: No Infection Criteria Present: None New/Unexplained Altered Menta: No Sepsis Screen: No Definite Risk Sepsis Diagnosis: SIRS Temperature:99.3 Pulse: 83 Respiratory Rate: 25 Blood Pressure 186 /66 Mean: 106 Results/Orders My Orders Orders - ADRIEL MONROE PA Chest 1 View, Ap/Pa Only (09/27/17 19:20) Albuterol Pre-Mix Nebs (Rt) (Proventil (09/27/17 19:20) Albuterol/Ipra Inhalation Soln (Duoneb I (09/27/17 19:30) Svn Sm Volume Nebulizer Rt-Rfs (09/27/17 19:20) Svn Sm Volume Nebulizer Rt-Rfs (09/27/17 19:20) Influenza A And B Antigens (09/27/17 19:20) Medications Given in ED Current Medications Medications Dose Ordered Sig/Mikey Route Start Time Stop Time Status Last Admin Dose Admin Albuterol/ Ipratropium 3 ml STK-MED ONCE .ROUTE 09/27/17 19:11 09/27/17 19:13 DC 09/27/17 19:16 3 ML Vital Signs/I&O Vital Sign - Last 12Hours 09/27/17 09/27/17 19:00 19:16 Temp 99.3 Pulse 83 Resp 25 B/P (MAP) 186/66 (106) Pulse Ox 86 95 O2 Delivery Room Air Nasal Cannula Capillary Refill : Less Than 3 Seconds Blood Pressure Mean: 106 Departure Departure-Patient Inst. Referrals: [facility] (PCP) Primary Care Physician NOEMI WASHBURN (Family) Primary Care Physician ADRIEL MONROE Sep 27, 2017 19:31
[2017-09-27] MEDS ORDERED: cefTRIAXone 1 GM (ROCEPHIN) VIAL IV STA (19:33)
[2017-09-27 19:43] LABS: BILIRUBIN,URINE NEGATIVE (NEGATIVE); CLARITY,URINE CLEAR; COLOR,URINE YELLOW; GLUCOSE, URINE (UA) NEGATIVE (NEGATIVE); KETONES,URINE 2+ (NEGATIVE); LEUKOCYTE ESTERASE ,URINE NEGATIVE (NEGATIVE); NITRITE,URINE NEGATIVE (NEGATIVE); PH,URINE 8 (5-9); PROTEIN,URINE 1+ (NEGATIVE); UROBILINOGEN,URINE 1 MG/DL (NORMAL)
[2017-09-27] MEDS ORDERED: ACETAMINOPHEN 500 MG TAB (TYLENOL) PO PRN (19:45)
[2017-09-27 19:49] LABS: SQUAMOUS EPITHELIAL CELL,UR RARE /HPF
[2017-09-27 20:23] LABS: BASOPHILS # (AUTO) 0.1 10^3/uL (0.0-0.1); BASOPHILS % (AUTO) 0 % (0-10); EOSINOPHILS # (AUTO) 0.2 10^3/uL (0.0-0.3); EOSINOPHILS % (AUTO) 2 % (0-10); HEMATOCRIT 33 % (40-54); HEMOGLOBIN 10.2 G/DL (13.3-17.7); LYMPHOCYTES # (AUTO) 3.8 X 10^3 (1.0-4.0); LYMPHOCYTES % (AUTO) 28 % (12-44); MEAN CORPUSCULAR HEMOGLOBIN 27 PG (25-34); MEAN CORPUSCULAR HGB CONC 31 G/DL (32-36); MEAN CORPUSCULAR VOLUME 87 FL (80-99); MEAN PLATELET VOLUME 11.3 FL (7.4-10.4); MONOCYTES # (AUTO) 1.3 X 10^3 (0.0-1.0); MONOCYTES % (AUTO) 10 % (0-12); NEUTROPHILS % (AUTO) 60 % (42-75); PLATELET COUNT 227 10^3/uL (130-400); RED BLOOD COUNT 3.73 10^6/uL (4.35-5.85); RED CELL DISTRIBUTION WIDTH 15.4 % (10.0-14.5); WHITE BLOOD COUNT 13.4 10^3/uL (4.3-11.0)
[2017-09-27] MEDS ORDERED: NS (IVPB) 50 ML ONE (20:32)
[2017-09-27 20:46] LABS: ALANINE AMINOTRANSFERASE 17 U/L (0-55); ALBUMIN 3.8 GM/DL (3.2-4.5); ALKALINE PHOSPHATASE 89 U/L (40-136); BILIRUBIN,TOTAL 0.6 MG/DL (0.1-1.0); BUN/CREATININE RATIO 11; CALCIUM 8.7 MG/DL (8.5-10.1); CARBON DIOXIDE 28 MMOL/L (21-32); CHLORIDE 102 MMOL/L (98-107); CREATININE SERUM 0.81 MG/DL (0.60-1.30); GFR ESTIMATED > 60; GLUCOSE 127 MG/DL (70-105); SODIUM 142 MMOL/L (135-145); TOTAL PROTEIN 6.8 GM/DL (6.4-8.2)
[2017-09-27 20:47] LABS: PROTHROMBIN TIME PATIENT 13.7 SEC (12.2-14.7)
[2017-09-27 20:50] LABS: FIBRIN DEGRADATION PRODUCTS 0.43 UG/ML (0.00-0.49)
--- NOTE | 2017-09-27 21:06 | Diagnostic Imaging Report ---
INDICATION: Shortness of breath COMPARISON: 11/28/2016 TECHNIQUE: Single frontal radiograph of the chest dated 09/27/2017. FINDINGS: Evaluation is slightly limited secondary to motion and patient body habitus. There is suggestion of a linear radiodensity overlying the right upper chest likely related to a central venous catheter, appearing similar to the prior examination. The cardiac silhouette is significantly enlarged, similar to the prior exam. No significant pulmonary vascular congestion. Opacities are suggested within the right mid and lower lung. No focal left-sided pulmonary opacities. No significant pleural effusion. No pneumothorax. Osseous structures appear stable. IMPRESSION: New opacities within the right mid and lower lung. Findings may relate to pneumonia versus edema. Recommend clinical correlation. Persistent enlargement of the cardiac silhouette, stable from prior examination. Probable central venous catheter overlying the right upper chest. This appears stable. Dictated by: Dictated on workstation # [id number]
[2017-09-27] MEDS ORDERED: FUROSEMIDE 40 MG/4 ML INJ (LASIX) IVP ONE (22:00)
--- OUTSIDE RECORDS SUMMARY | 2017-09-27 22:33 | XMS REPORT ---
Author ALYSE Mc [facility] eClinicalWorks Address Unknown Phone Unavailable Care Team Providers Care Wiping Rag Washer Name Role Phone ALYSE ELLIOTT CP Unavailable Allergies No Known Allergies Problems Problem Type Condition Code Onset Dates Condition Status Assessment Bipolar I disorder, most recent episode (or current) mixed, moderate F31.62 Active Problem Basal cell carcinoma of skin of other and unspecified parts of face 173.31 Active Problem Lumbago 724.2 Active Problem Coronary atherosclerosis of unspecified type of vessel, [place] or graft 414.00 Active Problem Eustachian tube dysfunction, unspecified laterality H69.80 Active Problem 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 Active Problem Hypokalemia E87.6 Active Problem Encounter for long-term (current) use of other medications V58.69 Active Problem Benign prostatic hyperplasia with lower urinary tract symptoms, unspecified morphology N40.1 Active Problem Dysuria R30.0 Active Problem Cough R05 Active Problem Bipolar I disorder, most recent episode (or current) mixed, moderate F31.62 Active Problem Reactive airway disease J45.909 Active Problem Essential hypertension, benign 401.1 Active Problem Unspecified disorder of kidney and ureter 593.9 Active Problem Insomnia, unspecified type G47.00 Active Problem Morbid obesity 278.01 Active Problem Diabetes E11.9 Active Problem DM neuro manif type II E11.49 Active Problem Chronic pain G89.29 Active Problem Leukocytosis D72.829 Active Problem Cervicalgia 723.1 Active Problem Headache 784.0 Active Problem Persistent disorder of initiating or maintaining sleep 307.42 Active Problem Hyperpotassemia 276.7 Active Problem Hypokalemia 276.8 Active Problem Diabetes 250.00 Active Problem Lymphocytosis D72.820 Active Problem Eye exam abnormal R93.8 Active Medications Medication Code System Code Instructions Start Date End Date Status Dosage Losartan Potassium [facility] [address]-08 100 MG Orally TAKE ONE TABLET BY MOUTH ONCE DAILY (MUST HAVE APPOINTMENT FOR REFILL) Metoprolol Succinate ER [facility] [address]-20 50 mg Orally twice a day 1 tablet Potassium Chloride Kathi ER [facility] 59137120161 20 MEQ TAKE TWO TABLETS BY MOUTH DAILY Diabetic Shoes [facility] 0 Apr 30, 2015 as directed Naproxen [facility] [address]-75 500 MG Orally every 12 hrs for headache March 1 tablet as needed Zofran [facility] 61237415979 4 MG Orally 3 times a day prn nausea and vomiting 1 tablet Trintellix [facility] [address]-91 20 MG Orally Once a day Jul 27, 2016 1 tablet Metformin HCl [facility] 56886449535 1000 MG TAKE ONE TABLET BY MOUTH TWICE DAILY Abilify [facility] [address]-80 20 MG Orally Once a day Jul 27, 2016 1 tablet Vitamin D3 [facility] 34173-47115 1,000 unit May 24, 2012 2 capsule by Oral route 1 time per day Depakote ER [facility] 96356057812 500 MG take 1 tablet by Oral route 2 times per day Gabapentin [facility] [address]-30 300 MG Orally 2 times a day April 21, 2016 1 capsule Aspirin [facility] [address]-64 81 mg May 22, 2014 1 tablet by Oral route 1 time per day Nexium [facility] 21681089486 40 MG TAKE ONE CAPSULE BY MOUTH ONCE DAILY Flomax [facility] [address]-30 0.4 MG Orally Once a day Sep 17, 2015 1 capsule 30 minutes after the same meal each day Lantus [facility] [address]-08 100 UNIT/ML Subcutaneous 2 times a day Inject 70 units Percocet [facility] [address]-35 10-325 MG Orally 4 times a day November 26, 2014 1 tablet as needed Losartan Potassium [facility] 18252819001 50 MG TAKE ONE TABLET BY MOUTH DAILY Singulair [facility] [address]-53 10 mg December 17, 2014 1 Tablet by Oral route 1 time per day Zetia [facility] 61476708452 10 MG TAKE ONE TABLET BY MOUTH DAILY Furosemide [facility] 66941220687 40 MG TAKE ONE TABLET BY MOUTH ONCE DAILY Fluticasone Propionate [facility] [address]-46 50 MCG/ACT INSTILL ONE SPRAY IN EACH NOSTRIL DAILY Klonopin [facility] [address]-39 1 MG Orally once a day May 27, 2015 1 tablet NovoLog Flexpen [facility] 37137696664 100 UNIT/ML INJECT 30 UNITS SUBCUTANEOUSLY WITH BREAKFAST, 30 UNITS WITH LUNCH AND 40 UNITS WITH EVENING MEAL Incruse Ellipta [facility] [address]-07 62.5 MCG/INH INHALE ONE PUFF BY MOUTH ONCE DAILY Clopidogrel Bisulfate [facility] 02342460817 75 MG TAKE ONE TABLET BY MOUTH DAILY Ventolin HFA [facility] [address]-29 108 (90 Base) MCG/ACT Inhalation every 4 hrs December 25, 2015 2 puffs as needed Victoza [facility] 86615609394 18 MG/3ML Subcutaneous Once a day INJECT 1.8 mg daily Atorvastatin Calcium [facility] 74342840980 20 MG TAKE ONE TABLET BY MOUTH AT BEDTIME Gabapentin [facility] [address]-82 300 mg May 22, 2014 1 capsule by Oral route 2 times per day Ambien [facility] [address]-45 10 mg Orally Once a day November 26, 2014 1 tablet at bedtime Seroquel [facility] [address]-99 100 MG Orally Once a day Jul 27, 2016 1 tablet Symbicort [facility] 89080364443 80-4.5 MCG/ACT Inhalation Twice a day 2 puffs Procedures Procedure Coding System Code Date Office Visit, Est Pt., Level 3 CPT-4 69189 Jul 27, 2016 [facility] VISIT ESTABLISHED PATIENT CPT-4 G0467 Jul 27, 2016 Vital Signs Date/Time: Jul 27, 2016 Cardiac Monitoring Heart Rate 128 bpm Weight 355.2 lbs Height 67 in BMI 55.63 Index Blood Pressure Diastolic 92 mmHg Blood Pressure Systolic 164 mmHg Results No Known Results Summary Purpose eClinicalWorks Submission
--- OUTSIDE RECORDS SUMMARY | 2017-09-27 22:33 | XMS REPORT ---
Author Author NOEMI WASHBURN Organization [facility] Address [address] [place] [address] Care Team Providers Care Paint Roller Cover Machine Setter Name Role Phone NOEMI WASHBURN Unavailable PROBLEMS Type Condition ICD9-CM Code UJS33-GM Code Onset Dates Condition Status SNOMED Code Problem Chronic pain G89.29 Active 29567522 Problem Reactive airway disease J45.909 Active 768345999684 Problem Leukocytosis D72.829 Active 602957823 Problem Diabetic polyneuropathy associated with type 2 diabetes mellitus E11.42 Active 18234600 Problem Essential hypertension I10 Active 66758591 Problem Insomnia, unspecified type G47.00 Active 109396192 Problem Bipolar I disorder, most recent episode (or current) mixed, moderate F31.62 Active 40643717 Problem Morbid obesity E66.01 Active 498285959 Problem Anxiety F41.9 Active 46381417 Problem Eye exam abnormal R93.8 Active 275460229 Problem Dysuria R30.0 Active 27170083 Problem Chronic lymphocytic leukemia C91.10 Active 66231722 Problem Lymphocytosis D72.820 Active 22671703 Problem Eustachian tube dysfunction, unspecified laterality H69.80 Active 80097229 Problem Benign prostatic hyperplasia with lower urinary tract symptoms, unspecified morphology N40.1 Active 337375166 Problem Cough R05 Active 05755461 Problem DM neuro manif type II E11.49 Active 69672608 Problem Hypokalemia E87.6 Active 80153845 Problem Diabetes E11.9 Active 08884746 ALLERGIES No Information SOCIAL HISTORY Never Assessed PLAN OF CARE VITAL SIGNS MEDICATIONS Medication Instructions Dosage Frequency Start Date End Date Duration Status Clonidine HCl 0.1 MG Orally 2 times a day 1 tablet 12h Oct, 30 day(s) Active Imbruvica 140 MG Orally Once a day 3 capsules in the evening 24h Oct, Active RESULTS No Results PROCEDURES No Known procedures IMMUNIZATIONS No Known Immunizations MEDICAL (GENERAL) HISTORY Type Description Date Medical History type II diabetes Medical History coronary artery disease stress test 01/5015 Medical History chronic obstructive pulmonary disease (COPD) Medical History gastroesophageal reflux disease (GERD) Medical History acute renal failure Medical History erectile dysfunction Medical History hyperlipidemia Medical History obesity Medical History skin cancer-basal cell R alevism (removed) Medical History Arthritis Medical History degenerative disease lumbosacral spine Medical History hypersomnolence Medical History migraine headaches Medical History seizures Medical History bipolar disorder Medical History personality disorder Medical History hx of pervious alcohol abuse Medical History depression Medical History lymphoma B-cell small lymphocytic (2009) Medical History impulse control disorder Medical History hx of rhabdomyolysis post seizure Medical History Lymphocytosis Medical History Eye exam abnormal Medical History Chronic lymphocytic leukemia Surgical History arthroscopic knee surgery (Right) 1993, 2003 Surgical History carpal tunnel release (Left) 2000 Surgical History EGD ([facility]) 2009 Surgical History colonoscopy 2009 ([facility]), 2013 ([facility]) Surgical History heart 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 04/2014 Surgical History carotid US 05/2014 Surgical History resection of skin cancer from Right alevism Surgical History Biopsy of Lung Bilateral/Left lung lymph node 09/2016 Surgical History Bone Marrow Biopsy Surgical History port in the right chest wall 12/2016 Hospitalization History [facility] low potassium, low magnesium, chest painina 01/2015 Hospitalization History inability to urinate 09/16/15
--- OUTSIDE RECORDS SUMMARY | 2017-09-27 22:33 | XMS REPORT ---
Author Author NOEMI WASHBURN [facility] Address [address] [place] [address] Care Team Providers Care Mortgage Processing Manager Name Role Phone NOEMI WASHBURN Unavailable PROBLEMS Type Condition ICD9-CM Code BQJ87-XG Code Onset Dates Condition Status SNOMED Code Problem Chronic pain G89.29 Active 36382901 Problem Reactive airway disease J45.909 Active 897344917405 Problem Leukocytosis D72.829 Active 113544496 Problem Diabetic polyneuropathy associated with type 2 diabetes mellitus E11.42 Active 78915969 Problem Essential hypertension I10 Active 57999917 Problem Insomnia, unspecified type G47.00 Active 796998577 Problem Bipolar I disorder, most recent episode (or current) mixed, moderate F31.62 Active 08581430 Problem Morbid obesity E66.01 Active 683118227 Problem Anxiety F41.9 Active 94090922 Problem Eye exam abnormal R93.8 Active 603156134 Problem Dysuria R30.0 Active 93151160 Problem Chronic lymphocytic leukemia C91.10 Active 56411988 Problem Lymphocytosis D72.820 Active 53853779 Problem Eustachian tube dysfunction, unspecified laterality H69.80 Active 32288424 Problem Benign prostatic hyperplasia with lower urinary tract symptoms, unspecified morphology N40.1 Active 554724836 Problem Cough R05 Active 12397641 Problem DM neuro manif type II E11.49 Active 80619933 Problem Hypokalemia E87.6 Active 03547246 Problem Diabetes E11.9 Active 95729030 ALLERGIES No Known Allergies SOCIAL HISTORY Never Assessed PLAN OF CARE Activity Details Follow Up 4 Weeks Reason:diabetes VITAL SIGNS Height 67 in 2016-11-09 Weight 361.4 lbs 2016-11-09 Temperature 97.9 degrees Fahrenheit 2016-11-09 Heart Rate 80 bpm 2016-11-09 Respiratory Rate 24 2016-11-09 Oximetry on room air:96 % 2016-11-09 BMI 56.60 kg/m2 2016-11-09 Blood pressure systolic 150 mmHg 2016-11-09 Blood pressure diastolic 100 mmHg 2016-11-09 MEDICATIONS Medication Instructions Dosage Frequency Start Date End Date Duration Status Singulair 10 mg 1 Tablet by Oral route 1 time per day Nov, Active Naproxen 500 MG Orally every 12 hrs for headache 1 tablet as needed Mar, 30 Active Percocet 10-325 MG Orally 4 times a day 1 tablet as needed 6h 30 Sep, 2016 28 days Active Clopidogrel Bisulfate 75 MG TAKE ONE TABLET BY MOUTH DAILY 90 Active Victoza 18 MG/3ML INJECT 1.8MG SUBCUTANEOUSLY ONCE DAILY 30 Active Incruse Ellipta 62.5 MCG/INH INHALE ONE PUFF BY MOUTH ONCE DAILY 30 Active Atorvastatin Calcium 20 MG TAKE ONE TABLET BY MOUTH AT BEDTIME 90 Active Imbruvica 140 MG Orally Once a day 3 capsules 24h Active Ventolin HFA 108 (90 Base) MCG/ACT Inhalation every 4 hrs 2 puffs as needed 4h Dec, 30 days Active Losartan Potassium 50 MG TAKE ONE TABLET BY MOUTH DAILY 90 Active Aspirin 81 mg 1 tablet by Oral route 1 time per day Apr, Active Losartan Potassium 100 MG TAKE ONE TABLET BY MOUTH ONCE DAILY (MUST HAVE APPOINTMENT FOR REFILL) Active Symbicort 80-4.5 MCG/ACT Inhalation Twice a day 2 puffs 12h 30 Active Ambien 10 mg Orally Once a day 1 tablet at bedtime 24h Nov, 30 days Active Zofran 4 MG Orally 3 times a day prn nausea and vomiting 1 tablet 5 Active Potassium Chloride Kathi ER 20 MEQ TAKE TWO TABLETS BY MOUTH DAILY 90 Active Furosemide 40 MG TAKE ONE TABLET BY MOUTH ONCE DAILY 90 Active Fluticasone Propionate 50 MCG/ACT INSTILL ONE SPRAY IN EACH NOSTRIL DAILY 30 Active Nexium 40 MG TAKE ONE CAPSULE BY MOUTH ONCE DAILY 90 Days Active Tamsulosin HCl 0.4 MG TAKE ONE CAPSULE BY MOUTH ONCE DAILY 30 MINUTES AFTER THE SAME MEAL EACH DAY 90 Active Flomax 0.4 MG Orally Once a day 1 capsule 30 minutes after the same meal each day 24h Aug, 90 Active Diabetic Shoes as directed Apr, Active NovoLog Flexpen 100 UNIT/ML INJECT 30 UNITS SUBCUTANEOUSLY WITH BREAKFAST, 30 UNITS WITH LUNCH AND 40 UNITS WITH EVENING MEAL 30 Active Zetia 10 MG TAKE ONE TABLET BY MOUTH DAILY 90 Active Abilify 20 MG Orally Once a day 1 tablet 24h Jul, 30 day(s) Active Lantus 100 UNIT/ML Subcutaneous 2 times a day Inject 70 units 12h 30 days Active Abilify 30 MG Orally Once a day 1 tablet 24h 30 days Active Metformin HCl 1000 MG TAKE ONE TABLET BY MOUTH TWICE DAILY 90 Active Valium 5 MG Orally three times a day 1 tablet as needed 8h Oct, 30 days Active Metoprolol Succinate ER 50 mg Orally twice a day 1 tablet 12h 90 Active Gabapentin 300 MG Orally 2 times a day 1 capsule 12h Mar, Active Seroquel 100 MG Orally Once a day 1 tablet 24h Jul, 30 days Active Vitamin D3 1,000 unit 2 capsule by Oral route 1 time per day Apr, Active Trintellix 20 MG Orally Once a day 1 tablet 24h Jul, 30 day(s) Active Depakote ER 500 MG take 1 tablet by Oral route 2 times per day Active RESULTS Name Result Date Reference Range A1C (IN HOUSE) 2016-11-09 A1C IN HOUSE 6.4 4.3 - 5.6 % Previous A1c 10.4 Lot [id number] Exp date 07/2018 MICROALBUMIN, URINE (IN HOUSE) 2016-11-09 MICROALBUMIN Lot # [id number] Exp date 10/2017 Clarity clear Color yellow ALB 10mg/L CRE 100mg/dl A:C (IN HOUSE) <30 mg/g Control Control Lot # Exp date [employer] 2016-11-09 PROCEDURES Procedure Date Ordered Result Body Site GLYCATED HEMOGLOBIN TEST Nov 09, 2016 MEASURE BLOOD OXYGEN LEVEL Nov 09, 2016 No Charge Nov 09, 2016 MICROALBUMIN, SEMIQUANT Nov 09, 2016 FQ VISIT ESTABLISHED PATIENT Nov 09, 2016 IMMUNIZATIONS No Known Immunizations MEDICAL (GENERAL) HISTORY Type Description Date Medical History type II diabetes Medical History coronary artery disease stress test 01/5015 Medical History chronic obstructive pulmonary disease (COPD) Medical History gastroesophageal reflux disease (GERD) Medical History acute renal failure Medical History erectile dysfunction Medical History hyperlipidemia Medical History obesity Medical History skin cancer-basal cell R yazidism (removed) Medical History Arthritis Medical History degenerative [...] EGD ([facility]) 2009 Surgical History colonoscopy 2009 ([facility]), 2013 ([facility]) Surgical History heart 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 04/2014 Surgical History carotid US 05/2014 Surgical History resection of skin cancer from Right yazidism Surgical History Biopsy of Lung Bilateral/Left lung lymph node 09/2016 Surgical History Bone Marrow Biopsy Surgical History port in the right chest wall 12/2016 Hospitalization History [facility] low potassium, low magnesium, chest painina 01/2015 Hospitalization History inability to urinate 09/16/15
--- OUTSIDE RECORDS SUMMARY | 2017-09-27 22:35 | XMS REPORT ---
Author Author NOEMI WASHBURN Organization [employer] Address Unknown Phone Unavailable Care Team Providers Care Bleacher Lard Name Role Phone NOEMI WASHBURN CP Unavailable Allergies No Known Allergies Problems Problem Type Condition ICD-9 Code Onset Dates Condition Status Problem Encounter for long-term (current) use of other medications V58.69 Active Problem Unspecified disorder of kidney and ureter 593.9 Active Problem Morbid obesity 278.01 Active Problem Headache 784.0 Active Problem Cervicalgia 723.1 Active Problem Diabetes 250.00 Active Problem Persistent disorder of initiating or maintaining sleep 307.42 Active Problem Essential hypertension, benign 401.1 Active Problem Hyperpotassemia 276.7 Active Problem Major depressive disorder, recurrent episode, severe, specified as with psychotic behavior 296.34 Active Problem Lumbago 724.2 Active Problem Bipolar I disorder, most recent episode (or current) mixed, moderate 296.62 Active Problem Other and unspecified bipolar disorders 296.89 Active Problem Coronary atherosclerosis of unspecified type of vessel, [place] or graft 414.00 Active Problem Basal cell carcinoma of skin of other and unspecified parts of face 173.31 Active Problem 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
--- OUTSIDE RECORDS SUMMARY | 2017-09-27 22:35 | XMS REPORT ---
Author ROSELINE Fuentes Organization [employer] Address Unknown Phone Unavailable Care Team Providers Care Appetizer Packer Name Role Phone ROSELINE LUIS CP Unavailable Allergies No Known Allergies Problems Problem Type Condition Code Onset Dates Condition Status Assessment Bipolar I disorder, most recent episode (or current) mixed, moderate F31.62 Active Problem Basal cell carcinoma of skin of other and unspecified parts of face 173.31 Active Problem Lumbago 724.2 Active Problem Coronary atherosclerosis of unspecified type of vessel, [place] or graft 414.00 Active Problem Eustachian tube [...] Problem Eye exam abnormal R93.8 Active Medications No Known Medications Procedures Procedure Coding System Code Date Psychotherapy, patient &/family, 30 minutes, established patient CPT-4 49017 Jul 14, 2016 [facility] VISIT MENTAL HEALTH ESTAB PT CPT-4 G0470 Jul 14, 2016 Results No Known Results Summary Purpose eClinicalWorks Submission
--- OUTSIDE RECORDS SUMMARY | 2017-09-27 22:35 | XMS REPORT ---
Author Author NOEMI WASHBURN Organization [employer] Address Unknown Phone Unavailable Care Team Providers Care Bullet Slugs Inspector Name Role Phone NOEMI WASHBURN CP Unavailable [...] Coronary atherosclerosis of unspecified type of vessel, [place] or graft 414.00 Active Problem Basal cell carcinoma of skin of other and unspecified parts of face 173.31 Active Problem 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 Active Medications Medication Code System Code Instructions Start Date End Date Status Dosage morphine NDC 0 15 mg December 17, 2014 1 Tablet by Oral route 1 time per day at Percocet NDC [address]-67 10-325 MG November 26, 2014 take 1 tablet by Oral route as needed 4 times per day PRN Results No Known Results Summary Purpose eClinicalWorks Submission
--- OUTSIDE RECORDS SUMMARY | 2017-09-27 22:36 | XMS REPORT ---
Author Author MARQUITA WASHBURN Organization [employer] Address Unknown Phone Unavailable Care Team Providers Care Mapping Supervisor Name Role Phone MARQUITA WASHBURN CP Unavailable Allergies No Known Allergies [...] Coronary atherosclerosis of unspecified type of vessel, [place] or graft 414.00 Active Problem Basal cell carcinoma of skin of other and unspecified parts of face 173.31 Active Problem 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 Active Medications Medication Code System Code Instructions Start Date End Date Status Dosage Diabetic Shoes NDC 0 0 1 pair of shoes Alan to sign in Marquita's absense April 20, 2015 as directed Results No Known Results Summary Purpose eClinicalWorks Submission
--- OUTSIDE RECORDS SUMMARY | 2017-09-27 22:36 | XMS REPORT ---
Author Author NOEMI WASHBURN Organization [facility] Address [address] [place] [address] Care Team Providers Care Web Retailer Name Role Phone NOEMI WASHBURN Unavailable PROBLEMS Type Condition ICD9-CM Code VVR75-CG Code Onset Dates Condition Status SNOMED Code Problem Chronic pain G89.29 Active 47123643 Problem Diabetes E11.9 Active 29948775 Problem Leukocytosis D72.829 Active 020871225 Problem Essential hypertension I10 Active 14104617 Problem Morbid obesity E66.01 Active 477347312 Problem Bipolar I disorder, most recent episode (or current) mixed, moderate F31.62 Active 08354387 Problem Reactive airway disease J45.909 Active 719764193125 Problem Anxiety F41.9 Active 89332765 Problem Insomnia, unspecified type G47.00 Active 602421518 Problem Eye exam abnormal R93.8 Active 792153736 Problem Lymphocytosis D72.820 Active 26139601 Problem Chronic lymphocytic leukemia C91.10 Active 70149501 Problem Cough R05 Active 51857921 Problem Hypokalemia E87.6 Active 82936764 Problem Eustachian tube dysfunction, unspecified laterality H69.80 Active 61722731 Problem Benign prostatic hyperplasia with lower urinary tract symptoms, unspecified morphology N40.1 Active 258927904 Problem Dysuria R30.0 Active 19458341 Problem DM neuro manif type II E11.49 Active 53682800 ALLERGIES Unknown Allergies SOCIAL HISTORY No smoking Hx information available PLAN OF CARE VITAL SIGNS MEDICATIONS Medication Instructions Dosage Frequency Start Date End Date Duration Status Lantus 100 UNIT/ML Subcutaneous 2 times a day Inject 70 units 12h 30 days Active RESULTS No Results PROCEDURES No Known procedures IMMUNIZATIONS No Known Immunizations
--- OUTSIDE RECORDS SUMMARY | 2017-09-27 22:36 | XMS REPORT ---
Author Author NOEMI WASHBURN Organization [facility] [place] Address [address] [place] [address] Care Team Providers Care Grants And Contracts Assistant Name Role Phone NOEMI WASHBURN Unavailable PROBLEMS Type Condition ICD9-CM Code [id number] Code Onset Dates Condition Status SNOMED Code Problem Leukocytosis D72.829 Active 519376887 Problem Bipolar I disorder, most recent episode (or current) mixed, moderate F31.62 Active 00295345 Problem Reactive airway disease J45.909 Active 552890204993 Problem Polyneuropathy associated with underlying disease G63 Active 948502762 Problem Chronic lymphocytic leukemia C91.10 Active 17077793 Problem Diabetic polyneuropathy associated with type 2 diabetes mellitus E11.42 Active 32904874 Problem Anxiety F41.9 Active 20084218 Problem Insomnia, unspecified type G47.00 Active 184300541 Problem Essential hypertension I10 Active 63160253 Problem Morbid obesity E66.01 Active 466845304 Problem Dysuria R30.0 Active 68881882 Problem Cough R05 Active 44857904 Problem Lymphocytosis D72.820 Active 46561659 Problem Eye exam abnormal R93.8 Active 485876431 Problem Benign prostatic hyperplasia with lower urinary tract symptoms, unspecified morphology N40.1 Active 315585479 Problem DM neuro manif type II E11.49 Active 09123273 Problem Hypokalemia E87.6 Active 48532212 Problem Diabetes E11.9 Active 60503453 Problem Eustachian tube dysfunction, unspecified laterality H69.80 Active 36463546 Problem Chronic pain G89.29 Active 78443142 ALLERGIES No Known Allergies SOCIAL HISTORY Never Assessed PLAN OF CARE Activity Details Follow Up 3 Months Reason:DM and pain mgmt VITAL SIGNS Height 67 in 2017-01-04 Weight 372 lbs 2017-01-04 Temperature 97.8 degrees Fahrenheit 2017-01-04 Heart Rate 75 bpm 2017-01-04 Respiratory Rate 24 2017-01-04 Oximetry on room air:97 % 2017-01-04 BMI 58.26 kg/m2 2017-01-04 Blood pressure systolic 160 mmHg 2017-01-04 Blood pressure diastolic 80 mmHg 2017-01-04 MEDICATIONS Medication Instructions Dosage Frequency Start Date End Date Duration Status Ambien 10 mg Orally Once a day 1 tablet at bedtime 24h Nov, 30 days Active Clonidine HCl 0.1 MG Orally 2 times a day 1 tablet 12h Oct, 30 day(s) Active Losartan Potassium 100 MG TAKE ONE TABLET BY MOUTH ONCE DAILY (MUST HAVE APPOINTMENT FOR REFILL) Active Percocet 10-325 MG Orally 4 times a day 1 tablet as needed 6h Nov, 28 days Active Gabapentin 300 MG Orally 2 times a day 1 capsule 12h Mar, Active Potassium Chloride Kathi ER 20 MEQ TAKE TWO TABLETS BY MOUTH DAILY 90 Active Trintellix 20 MG Orally Once a day 1 tablet 24h 30 Active Nexium 40 MG TAKE ONE CAPSULE BY MOUTH ONCE DAILY 90 Days Active Lantus 100 UNIT/ML Subcutaneous 2 times a day Inject 70 units 12h 30 days Active Metformin HCl 1000 MG TAKE ONE TABLET BY MOUTH TWICE DAILY 90 Active Valium 5 MG Orally three times a day 1 tablet as needed 8h Oct, 30 days Active Abilify 20 MG Orally Once a day 1 tablet 24h Jul, 30 day(s) Active Metoprolol Succinate ER 50 mg Orally twice a day 1 tablet 12h 90 Active Singulair 10 mg 1 Tablet by Oral route 1 time per day Nov, Active Flomax 0.4 MG Orally Once a day 1 capsule 30 minutes after the same meal each day 24h Aug, 90 Active Clopidogrel Bisulfate 75 MG TAKE ONE TABLET BY MOUTH DAILY 90 Active Fluticasone Propionate 50 MCG/ACT INSTILL ONE SPRAY IN EACH NOSTRIL DAILY 30 Active Naproxen 500 MG TAKE ONE TABLET BY MOUTH EVERY 12 HOURS NEEDED FOR HEADACHE 30 Active Imbruvica 140 MG Orally Once a day 3 capsules in the evening 24h Oct, Active Losartan Potassium 50 MG TAKE ONE TABLET BY MOUTH DAILY 90 Active Vitamin D3 1,000 unit 2 capsule by Oral route 1 time per day Apr, Active Furosemide 40 MG TAKE ONE TABLET BY MOUTH ONCE DAILY 90 Active Depakote ER 500 MG take 1 tablet by Oral route 2 times per day Active NovoLog Flexpen 100 UNIT/ML INJECT 30 UNITS SUBCUTANEOUSLY WITH BREAKFAST, 30 UNITS WITH LUNCH AND 40 UNITS WITH EVENING MEAL 90 Active Zofran 4 MG Orally 3 times a day prn nausea and vomiting 1 tablet 5 Active Atorvastatin Calcium 20 MG TAKE ONE TABLET BY MOUTH AT BEDTIME 90 Active Aspirin 81 mg 1 tablet by Oral route 1 time per day Apr, Active Victoza 18 MG/3ML INJECT 1.8MG SUBCUTANEOUSLY ONCE DAILY 30 Active Ventolin HFA 108 (90 Base) MCG/ACT Inhalation every 4 hrs 2 puffs as needed 4h Dec, 30 days Active Symbicort 80-4.5 MCG/ACT Inhalation Twice a day 2 puffs 12h 30 Active Abilify 30 MG Orally Once a day 1 tablet 24h 30 days Active Zetia 10 MG TAKE ONE TABLET BY MOUTH DAILY 90 Active Seroquel 100 MG Orally Once a day 1 tablet 24h Jul, 30 days Active RESULTS No Results PROCEDURES Procedure Date Ordered Result Body Site MEASURE BLOOD OXYGEN LEVEL January 04, 2017 [facility] ESTABLISHED PATIENT January 04, 2017 IMMUNIZATIONS No Known Immunizations MEDICAL (GENERAL) HISTORY Type Description Date Medical History type II diabetes Medical History coronary artery disease stress test 01/5015 Medical History chronic obstructive pulmonary disease (COPD) Medical History gastroesophageal reflux disease (GERD) Medical History acute renal failure Medical History erectile dysfunction Medical History hyperlipidemia Medical History obesity Medical History skin cancer-basal cell R mormonism (removed) Medical History Arthritis Medical History degenerative disease lumbosacral spine Medical History hypersomnolence Medical History migraine headaches Medical History seizures Medical History bipolar disorder Medical History personality disorder Medical History hx of pervious alcohol abuse Medical History depression Medical History lymphoma B-cell small lymphocytic (2008) Medical History impulse control disorder Medical History hx of rhabdomyolysis post seizure Medical History Lymphocytosis Medical History Eye exam abnormal Medical History Chronic lymphocytic leukemia Surgical History arthroscopic knee surgery (Right) 1993, 2003 Surgical History carpal tunnel release (Left) 2000 Surgical History EGD ([facility]) 2009 Surgical History colonoscopy 2009 ([facility]), 2013 ([place]) Surgical History heart 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 04/2014 Surgical History carotid US 05/2014 Surgical History resection of skin cancer from Right mormonism Surgical History Biopsy of Lung Bilateral/Left lung lymph node 09/2016 Surgical History Bone Marrow Biopsy Surgical History port in the right chest wall 12/2016 Hospitalization History [facility] low potassium, low magnesium, chest painina 01/2015 Hospitalization History inability to urinate 09/16/15 Hospitalization History [facility] early
--- OUTSIDE RECORDS SUMMARY | 2017-09-27 22:36 | XMS REPORT ---
Author Author ALYSE Lazaro Organization [facility] Address Unknown Care Team Providers Care Cotton Grader Name Role Phone ALYSE Lazaro Unavailable PROBLEMS Type Condition ICD9-CM Code [id number] Code Onset Dates Condition Status SNOMED Code Problem Chronic pain G89.29 Active 35531043 Problem Diabetes E11.9 Active 18978382 Problem Leukocytosis D72.829 Active 486702993 Problem Essential hypertension I10 Active 18093627 Problem Morbid obesity E66.01 Active 362315975 Problem Bipolar I disorder, most recent episode (or current) mixed, moderate F31.62 Active 26333918 Problem Reactive airway disease J45.909 Active 686453770507 Problem Anxiety F41.9 Active 22589419 Problem Insomnia, unspecified type G47.00 Active 184945695 Problem Eye exam abnormal R93.8 Active 806852505 Problem Lymphocytosis D72.820 Active 32928224 Problem Chronic lymphocytic leukemia C91.10 Active 62040138 Problem Cough R05 Active 26827927 Problem Hypokalemia E87.6 Active 62045377 Problem Eustachian tube dysfunction, unspecified laterality H69.80 Active 86557444 Problem Benign prostatic hyperplasia with lower urinary tract symptoms, unspecified morphology N40.1 Active 218189024 Problem Dysuria R30.0 Active 53356810 Problem DM neuro manif type II E11.49 Active 52896607 ALLERGIES No Known Allergies SOCIAL HISTORY Never Assessed PLAN OF CARE Activity Details Follow Up 2 Months Reason: VITAL SIGNS Height 67 in 2016-10-26 Weight 356.8 lbs 2016-10-26 Heart Rate 84 bpm 2016-10-26 Respiratory Rate 22 2016-10-26 BMI 55.88 kg/m2 2016-10-26 Blood pressure systolic 190 mmHg 2016-10-26 Blood pressure diastolic 85 mmHg 2016-10-26 MEDICATIONS Medication Instructions Dosage Frequency Start Date End Date Duration Status Diabetic Shoes as directed Apr, Active Clopidogrel Bisulfate 75 MG TAKE ONE TABLET BY MOUTH DAILY 90 Active Flomax 0.4 MG Orally Once a day 1 capsule 30 minutes after the same meal each day 24h 24 Aug, 2015 90 Active Losartan Potassium 100 MG TAKE ONE TABLET BY MOUTH ONCE DAILY (MUST HAVE APPOINTMENT FOR REFILL) Active Metoprolol Succinate ER 50 mg Orally twice a day 1 tablet 12h 90 Active Singulair 10 mg 1 Tablet by Oral route 1 time per day Nov, Active Vitamin D3 1,000 unit 2 capsule by Oral route 1 time per day Apr, Active Victoza 18 MG/3ML INJECT 1.8MG SUBCUTANEOUSLY ONCE DAILY 30 Active Symbicort 80-4.5 MCG/ACT Inhalation Twice a day 2 puffs 12h 30 Active Aspirin 81 mg 1 tablet by Oral route 1 time per day Apr, Active Gabapentin 300 mg 1 capsule by Oral route 2 times per day Apr, Active Seroquel 100 MG Orally Once a day 1 tablet 24h Jul, 30 days Active Abilify 30 MG Orally Once a day 1 tablet 24h 30 days Active Potassium Chloride Kathi ER 20 MEQ TAKE TWO TABLETS BY MOUTH DAILY 90 Active Trintellix 20 MG Orally Once a day 1 tablet 24h Jul, 30 day(s) Active Fluticasone Propionate 50 MCG/ACT INSTILL ONE SPRAY IN EACH NOSTRIL DAILY 30 Active Ventolin HFA 108 (90 Base) MCG/ACT Inhalation every 4 hrs 2 puffs as needed 4h Dec, 30 days Active Gabapentin 300 MG Orally 2 times a day 1 capsule 12h Mar, Active Zofran 4 MG Orally 3 times a day prn nausea and vomiting 1 tablet 5 Active NovoLog Flexpen 100 UNIT/ML INJECT 30 UNITS SUBCUTANEOUSLY WITH BREAKFAST, 30 UNITS WITH LUNCH AND 40 UNITS WITH EVENING MEAL 30 Active Atorvastatin Calcium 20 MG TAKE ONE TABLET BY MOUTH AT BEDTIME 90 Active Valium 5 MG Orally three times a day 1 tablet as needed 8h Oct, 30 days Active Metformin HCl 1000 MG TAKE ONE TABLET BY MOUTH TWICE DAILY 90 Active Incruse Ellipta 62.5 MCG/INH INHALE ONE PUFF BY MOUTH ONCE DAILY 30 Active Zetia 10 MG TAKE ONE TABLET BY MOUTH DAILY 90 Active Percocet 10-325 MG Orally 4 times a day 1 tablet as needed 6h 30 Sep, 2016 28 days Active Abilify 20 MG Orally Once a day 1 tablet 24h Jul, 30 day(s) Active Losartan Potassium 50 MG TAKE ONE TABLET BY MOUTH DAILY 90 Active Naproxen 500 MG Orally every 12 hrs for headache 1 tablet as needed Mar, 30 Active Nexium 40 MG TAKE ONE CAPSULE BY MOUTH ONCE DAILY 90 Days Active Depakote ER 500 MG take 1 tablet by Oral route 2 times per day Active Furosemide 40 MG TAKE ONE TABLET BY MOUTH ONCE DAILY 90 Active Ambien 10 mg Orally Once a day 1 tablet at bedtime 24h Nov, 30 days Active RESULTS No Results PROCEDURES Procedure Date Ordered Result Body Site [facility] VISIT ESTABLISHED PATIENT Oct 26, 2016 IMMUNIZATIONS No Known Immunizations MEDICAL (GENERAL) HISTORY Type Description Date Medical History type II diabetes Medical History coronary artery disease stress test 01/5015 Medical History chronic obstructive pulmonary disease (COPD) Medical History gastroesophageal reflux disease (GERD) Medical History acute renal failure Medical History erectile dysfunction Medical History hyperlipidemia Medical History obesity Medical History skin cancer-basal cell R zoroastrianism (removed) Medical History Arthritis Medical History degenerative [...] tunnel release (Left) 2000 Surgical History EGD ([facility]) 2009 Surgical History colonoscopy 2009 ([facility]), 2013 ([place]) Surgical History heart 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 04/2014 Surgical History carotid US 05/2014 Surgical History resection of skin cancer from Right zoroastrianism Surgical History Biopsy of Lung Bilateral/Left lung lymph node 09/2016 Surgical History Bone Marrow Biopsy Surgical History port in the right chest wall 12/2016 Hospitalization History [facility] low potassium, low magnesium, chest painina 01/2015 Hospitalization History inability to urinate 09/16/15
--- OUTSIDE RECORDS SUMMARY | 2017-09-27 22:37 | XMS REPORT ---
Author NOEMI Babb [facility] eClinicalWorks Address Unknown Phone Unavailable Care Team Providers Care Customer Experience Analyst Name Role Phone NOEMI WASHBURN CP Unavailable Allergies, Adverse Reactions, Alerts Substance Reaction Event Type N.K.D.A. 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 Active Problem Benign prostatic hyperplasia with lower urinary tract symptoms, unspecified morphology N40.1 Active Problem Encounter for long-term (current) use of other medications V58.69 Active Problem Cough R05 Active Problem Moderate mixed bipolar I disorder F31.62 Active Problem Dysuria R30.0 Active Problem Bipolar I disorder, most recent [...] 307.42 Active Problem Hyperpotassemia 276.7 Active Problem Diabetes 250.00 Active Problem Eustachian tube dysfunction, unspecified laterality H69.80 Active Problem Lymphocytosis D72.820 Active Problem Hypokalemia 276.8 Active Medications Medication Code System Code Instructions Start Date End Date Status Dosage NovoLog Flexpen [facility] 49398272384 100 UNIT/ML INJECT 30 UNITS SUBCUTANEOUSLY WITH BREAKFAST, 30 UNITS WITH LUNCH AND 40 UNITS WITH EVENING MEAL Zofran [facility] 96115770629 4 MG Orally 3 times a day prn nausea and vomiting 1 tablet Seroquel [facility] 22103363395 50 MG TAKE ONE TABLET BY MOUTH THREE TIMES DAILY Vitamin D3 [facility] [address]89 1,000 unit May 24, 2012 2 capsule by Oral route 1 time per day Brintellix [facility] 46916519502 10 MG Orally Once a day 1 tablet Percocet [facility] [address]-71 10-325 MG Orally 4 times a day November 26, 2014 1 tablet as needed Metformin HCl [facility] [address]-33 1000 MG Orally Twice a day 1 tablet with meals Nexium [facility] 19119940972 40 MG TAKE ONE CAPSULE BY MOUTH ONCE DAILY Ventolin HFA [facility] [address]-81 108 (90 Base) MCG/ACT Inhalation every 4 hrs December 25, 2015 2 puffs as needed Atorvastatin Calcium [facility] 51132591877 20 MG TAKE ONE TABLET BY MOUTH AT BEDTIME Losartan Potassium [facility] [address]-14 100 MG Orally TAKE ONE TABLET BY MOUTH ONCE DAILY (MUST HAVE APPOINTMENT FOR REFILL) Aspirin [facility] [address]-51 81 mg May 22, 2014 1 tablet by Oral route 1 time per day Ambien [facility] [address]-20 10 mg Orally Once a day November 26, 2014 1 tablet at bedtime Abilify [facility] [address]-75 30 MG Orally Once a day 1 tablet Fetzima [facility] 53424765508 40 MG TAKE ONE CAPSULE BY MOUTH DAILY Victoza [facility] 72942663041 18 MG/3ML INJECT 0.6 MG SUBCUTANEOUSLY DAILY FOR 3 DAYS THEN INCREASE TO 1.2 MG DAILY THEREAFTER Potassium Chloride Kathi ER [facility] 10618653067 20 MEQ TAKE TWO TABLETS BY MOUTH ONCE DAILY (MUST HAVE APPOINTMENT FOR REFILL) Flomax [facility] [address]-73 0.4 MG Orally Once a day Sep 17, 2015 1 capsule 30 minutes after the same meal each day Gabapentin [facility] [address]-87 300 MG Orally 2 times a day April 21, 2016 1 capsule Depakote ER [facility] 10831695071 500 MG take 1 tablet by Oral route 2 times per day Singulair [facility] [address]-60 10 mg December 17, 2014 1 Tablet by Oral route 1 time per day Zetia [facility] [address]-89 10 mg Orally Once a day 1 tablet Diabetic Shoes [facility] 0 Apr 30, 2015 as directed Symbicort [facility] 53678702642 80-4.5 MCG/ACT Inhalation Twice a day 2 puffs Metoprolol Succinate ER [facility] 18849545117 50 MG Orally Once a day 1 tablet Klonopin [facility] [address]-93 1 MG Orally once a day Dr. Pederson to sign for Hans May 27, 2015 1 tablet Furosemide [facility] [address]-40 40 mg Orally Once a day 1 tablet Naproxen [facility] [address]-14 500 MG Orally every 12 hrs for headache March 1 tablet as needed Gabapentin [facility] [address]-65 300 mg May 22, 2014 1 capsule by Oral route 2 times per day Fluticasone Propionate [facility] [address]-21 50 MCG/ACT INSTILL ONE SPRAY IN EACH NOSTRIL DAILY Lantus [facility] [address]-90 100 UNIT/ML Subcutaneous 2 times a day Inject 100 units PredniSONE [facility] [address]-52 20 mg Orally Once a day April 21, 2016Apr 1 tablet Incruse Ellipta [facility] [address]-12 62.5 MCG/INH Inhalation Once a day December 28, 2015 1 puff Procedures Procedure Coding System Code Date [facility] V[facility]IT ESTABLISHED PATIENT CPT-4 G0467 April 21, 2016 Office Visit, Est Pt., Level 3 CPT-4 08923 April 21, 2016 LAB NOT BILLED BY [facility] CPT-4 NOBLL April 21, 2016 VENIPUNCT, ROUTINE* CPT-4 05113 April 21, 2016 Vital Signs Date/Time: April 21, 2016 Cardiac Monitoring Heart Rate 72 bpm Weight 329.6 lbs Height 67 in BMI 51.62 Index Blood Pressure Diastolic 108 mmHg Blood Pressure Systolic 202 mmHg Results No Known Results Summary Purpose eClinicalWorks Submission
--- OUTSIDE RECORDS SUMMARY | 2017-09-27 22:37 | XMS REPORT ---
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 Active Problem Morbid obesity 278.01 Active Problem Encounter for long-term (current) use of other medications V58.69 Active Problem Headache 784.0 Active Problem Cervicalgia 723.1 Active Problem Diabetes 250.00 Active Problem Essential hypertension, benign 401.1 Active Problem Unspecified disorder of kidney and ureter 593.9 Active Problem Hyperpotassemia 276.7 Active Problem Persistent disorder of initiating or maintaining sleep 307.42 Active Problem Basal cell carcinoma of skin of other and unspecified parts of face 173.31 Active Problem Lumbago 724.2 Active Problem Bipolar I disorder, most recent episode (or current) mixed, moderate 296.62 Active Assessment Bipolar I disorder, most recent episode (or current) mixed, moderate 296.62 Active Problem Coronary atherosclerosis of unspecified type of vessel, [place] or graft 414.00 Active Medications No Known Medications Procedures Procedure Coding System Code Date Psychotherapy, patient &/family, 45 minutes, new patient CPT-4 31757 May [facility] VISIT MENTAL HEALTH NEW PT CPT-4 G0469 Jun 19, 2015 Results No Known Results Summary Purpose [employer]ClinicalWorks Submission
--- OUTSIDE RECORDS SUMMARY | 2017-09-27 22:37 | XMS REPORT ---
Author Author NOEMI WASHBURN Organization [employer] Address Unknown Phone Unavailable Care Team Providers Care Senior Database Administrator Name Role Phone NOEMI WASHBURN CP Unavailable Allergies No Known Allergies Problems Problem Type Condition Code Onset Dates Condition Status Problem Personality [...] Coronary atherosclerosis of unspecified type of vessel, [place] or graft 414.00 Active Medications Medication Code System Code Instructions Start Date End Date Status Dosage Hoanggiovanna [facility] [place] [address]-16 10 MG November 26, 2014 1 tablet by Oral route 1 time per day at hs Results No Known Results Summary Purpose eClinicalWorks Submission
--- OUTSIDE RECORDS SUMMARY | 2017-09-27 22:37 | XMS REPORT ---
Author Author NOEMI WASHBURN Organization [facility] Address [address] [place] [address] Care Team Providers Care Storyboard Artist Name Role Phone NOEMI WASHBURN Unavailable PROBLEMS Type Condition ICD9-CM Code ALW19-HE Code Onset Dates Condition Status SNOMED Code Problem Chronic pain G89.29 Active 05024322 Problem Reactive airway disease J45.909 Active 491616823150 Problem Leukocytosis D72.829 Active 772538420 Problem Diabetic polyneuropathy associated with type 2 diabetes mellitus E11.42 Active 94011853 Problem Essential hypertension I10 Active 71357784 Problem Insomnia, unspecified type G47.00 Active 530216015 Problem Bipolar I disorder, most recent episode (or current) mixed, moderate F31.62 Active 80640325 Problem Morbid obesity E66.01 Active 163331640 Problem Anxiety F41.9 Active 16132958 Problem Eye exam abnormal R93.8 Active 783164482 Problem Dysuria R30.0 Active 13283663 Problem Chronic lymphocytic leukemia C91.10 Active 25989192 Problem Lymphocytosis D72.820 Active 59449503 Problem Eustachian tube dysfunction, unspecified laterality H69.80 Active 77521347 Problem Benign prostatic hyperplasia with lower urinary tract symptoms, unspecified morphology N40.1 Active 108968036 Problem Cough R05 Active 56673887 Problem DM neuro manif type II E11.49 Active 90877055 Problem Hypokalemia E87.6 Active 78814471 Problem Diabetes E11.9 Active 10449031 ALLERGIES No Information SOCIAL HISTORY Never Assessed PLAN OF CARE VITAL SIGNS MEDICATIONS Medication Instructions Dosage Frequency Start Date End Date Duration Status Percocet 10-325 MG Orally 4 times a day 1 tablet as needed 6h Oct, 28 days Active RESULTS No Results PROCEDURES No [...] obesity Medical History skin cancer-basal cell R druze (removed) Medical History Arthritis Medical History degenerative [...] 2009 Surgical History colonoscopy 2009 ([facility]), 2013 ([place]) Surgical History heart 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 04/2014 Surgical History carotid US 05/2014 Surgical History resection of skin cancer from Right druze Surgical History Biopsy of Lung Bilateral/Left lung lymph node 09/2016 Surgical History Bone Marrow Biopsy Surgical History port in the right chest wall 12/2016 Hospitalization History [facility] low potassium, low magnesium, chest painina 01/2015 Hospitalization History inability to urinate 09/16/15
--- OUTSIDE RECORDS SUMMARY | 2017-09-27 22:37 | XMS REPORT ---
Author Author NOEMI WASHBURN Organization [employer] Address Unknown Phone Unavailable Care Team Providers Care Pompom Maker Name Role Phone NOEMI WASHBURN CP Unavailable [...] Coronary atherosclerosis of unspecified type of vessel, [place] or graft 414.00 Active Medications Medication Code System Code Instructions Start Date End Date Status Dosage Percocet NDC [address]-33 10-325 MG November 26, 2014 take 1 tablet by Oral route as needed 4 times per day PRN morphine NDC 0 15 mg December 17, 2014 1 Tablet by Oral route 1 time per day at HS Results No Known Results Summary Purpose eClinicalWorks Submission
--- OUTSIDE RECORDS SUMMARY | 2017-09-27 22:37 | XMS REPORT ---
Author ROSELINE Fuentes Organization [facility] Address [address] [place] [address] Care Team Providers Care Scissors Sharpener Name Role Phone ROSELINE LUIS Unavailable PROBLEMS Type Condition ICD9-CM Code [id number] Code Onset Dates Condition Status SNOMED Code Problem Chronic pain G89.29 Active 03535240 Problem Reactive airway disease J45.909 Active 479335144837 Problem Leukocytosis D72.829 Active 357136868 Problem Diabetic polyneuropathy associated with type 2 diabetes mellitus E11.42 Active 73585581 Problem Essential hypertension I10 Active 41965816 Problem Insomnia, unspecified type G47.00 Active 236750090 Problem Bipolar I disorder, most recent episode (or current) mixed, moderate F31.62 Active 37098515 Problem Morbid obesity E66.01 Active 401675963 Problem Anxiety F41.9 Active 30668775 Problem Eye exam abnormal R93.8 Active 236495159 Problem Dysuria R30.0 Active 12393443 Problem Chronic lymphocytic leukemia C91.10 Active 22203101 Problem Lymphocytosis D72.820 Active 17202745 Problem Eustachian tube dysfunction, unspecified laterality H69.80 Active 45040084 Problem Benign prostatic hyperplasia with lower urinary tract symptoms, unspecified morphology N40.1 Active 489655169 Problem Cough R05 Active 58294163 Problem DM neuro manif type II E11.49 Active 35889004 Problem Hypokalemia E87.6 Active 74381877 Problem Diabetes E11.9 Active 23830722 ALLERGIES No Information SOCIAL HISTORY Never Assessed PLAN OF CARE Activity Details Follow Up 1 Week Reason:depression VITAL SIGNS MEDICATIONS Unknown Medications RESULTS No Results PROCEDURES Procedure Date Ordered Result Body Site [facility] VISIT MENTAL HEALTH ESTAB PT December 01, 2016 Psychotherapy, patient &/family, 45 minutes, established patient December 01, 2016 IMMUNIZATIONS No Known Immunizations MEDICAL (GENERAL) HISTORY Type Description Date Medical History type II diabetes Medical History coronary artery disease stress test 01/5015 Medical History chronic obstructive pulmonary disease (COPD) Medical History gastroesophageal reflux disease (GERD) Medical History acute renal failure Medical History erectile dysfunction Medical History hyperlipidemia Medical History obesity Medical History skin cancer-basal cell R jewish (removed) Medical History Arthritis Medical History degenerative [...] EGD ([facility]) 2009 Surgical History colonoscopy 2009 ([facility]), 2013 ([place]) Surgical History heart 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 04/2014 Surgical History carotid US 05/2014 Surgical History resection of skin cancer from Right jewish Surgical History Biopsy of Lung Bilateral/Left lung lymph node 09/2016 Surgical History Bone Marrow Biopsy Surgical History port in the right chest wall 12/2016 Hospitalization History [facility] low potassium, low magnesium, chest painina 01/2015 Hospitalization History inability to urinate 09/16/15 Hospitalization History [facility] inpatient mental health early
--- OUTSIDE RECORDS SUMMARY | 2017-09-27 22:39 | XMS REPORT ---
Author ROSELINE Fuentes Organization [facility] Address [address] [place] [address] Care Team Providers Care Institution Librarian Name Role Phone TOBYTESSROSELINE Unavailable PROBLEMS Type Condition ICD9-CM Code [id number] Code Onset Dates Condition Status SNOMED Code Problem Chronic pain G89.29 Active 61642583 Problem Reactive airway disease J45.909 Active 360262690795 Problem Leukocytosis D72.829 Active 064963527 Problem Diabetic polyneuropathy associated with type 2 diabetes mellitus E11.42 Active 51538597 Problem Essential hypertension I10 Active 90067847 Problem Insomnia, unspecified type G47.00 Active 349871405 Problem Bipolar I disorder, most recent episode (or current) mixed, moderate F31.62 Active 54246571 Problem Morbid obesity E66.01 Active 018710737 Problem Anxiety F41.9 Active 67337873 Problem Eye exam abnormal R93.8 Active 753454712 Problem Dysuria R30.0 Active 37851987 Problem Chronic lymphocytic leukemia C91.10 Active 38562919 Problem Lymphocytosis D72.820 Active 55855514 Problem Eustachian tube dysfunction, unspecified laterality H69.80 Active 87324932 Problem Benign prostatic hyperplasia with lower urinary tract symptoms, unspecified morphology N40.1 Active 919754122 Problem Cough R05 Active 56486618 Problem DM neuro manif type II E11.49 Active 94760397 Problem Hypokalemia E87.6 Active 06682882 Problem Diabetes E11.9 Active 09670049 ALLERGIES No Information SOCIAL HISTORY Never Assessed PLAN OF CARE Activity Details Follow Up 1 Week Reason:depression VITAL SIGNS MEDICATIONS Unknown Medications RESULTS No Results PROCEDURES Procedure Date Ordered Result Body Site [facility] VISIT MENTAL HEALTH ESTAB PT Nov 21, 2016 Psychotherapy, patient &/family, 45 minutes, established patient Nov 21, 2016 IMMUNIZATIONS No Known Immunizations MEDICAL (GENERAL) HISTORY Type Description Date Medical History type II diabetes Medical History coronary artery disease stress test 01/5015 Medical History chronic obstructive pulmonary disease (COPD) Medical History gastroesophageal reflux disease (GERD) Medical History acute renal failure Medical History erectile dysfunction Medical History hyperlipidemia Medical History obesity Medical History skin cancer-basal cell R advent (removed) Medical History Arthritis Medical History degenerative [...] 2009 Surgical History colonoscopy 2009 ([facility]), 2013 ([place]) Surgical History heart 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 04/2014 Surgical History carotid US 05/2014 Surgical History resection of skin cancer from Right advent Surgical History Biopsy of Lung Bilateral/Left lung lymph node 09/2016 Surgical History Bone Marrow Biopsy Surgical History port in the right chest wall 12/2016 Hospitalization History [facility] low potassium, low magnesium, chest painina 01/2015 Hospitalization History inability to urinate 09/16/15 Hospitalization History [facility] inpatient mental health early
--- OUTSIDE RECORDS SUMMARY | 2017-09-27 22:39 | XMS REPORT ---
Author Author NOEMI WASHBURN Organization [employer] Address Unknown Phone Unavailable Care Team Providers Care Manager Web Name Role Phone NOEMI WASHBURN CP Unavailable Allergies No Known Allergies Problems Problem Type Condition Code Onset Dates Condition Status Problem Encounter for long-term (current) use of other medications V58.69 Active Problem Unspecified disorder of kidney and ureter 593.9 Active Problem Morbid obesity 278.01 Active Problem Hypokalemia 276.8 Active Problem Headache 784.0 Active Problem Diabetes 250.00 Active Problem Persistent disorder of initiating or maintaining sleep 307.42 Active Problem Essential hypertension, benign 401.1 Active Problem Cervicalgia 723.1 Active Problem Hyperpotassemia 276.7 Active Problem Lumbago 724.2 Active Problem Bipolar I disorder, most recent episode (or current) mixed, moderate 296.62 Active Problem Coronary atherosclerosis of unspecified type of vessel, [place] or graft 414.00 Active Problem Basal cell carcinoma of skin of other and unspecified parts of face 173.31 Active Problem 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 Active Medications Medication Code System Code Instructions Start Date End Date Status Dosage [facility] [address]-53 10 MG November 26, 2014 1 tablet by Oral route 1 time per day at hs Results No Known Results Summary Purpose [employer] Submission
--- OUTSIDE RECORDS SUMMARY | 2017-09-27 22:39 | XMS REPORT ---
Author ROSELIEN Fuentes Organization [employer] Address Unknown Phone Unavailable Care Team Providers Care Paraoptometric Name Role Phone ROSELINE LUIS CP Unavailable Allergies No Known Allergies Problems Problem Type Condition Code Onset Dates Condition Status Assessment Bipolar I disorder, most recent episode (or current) mixed, moderate F31.62 Active Problem Basal cell carcinoma of skin of other and unspecified parts of face 173.31 Active Problem Lumbago 724.2 Active Problem Coronary atherosclerosis of unspecified type of vessel, [place] or graft 414.00 Active Problem Eustachian tube [...] Code Date Psychotherapy, patient &/family, 45 minutes, established patient CPT-4 31753 Jun 30, 2016 [facility] VISIT MENTAL HEALTH ESTAB PT CPT-4 G0470 Jun 30, 2016 Results No Known Results Summary Purpose [employer] Submission
--- OUTSIDE RECORDS SUMMARY | 2017-09-27 22:39 | XMS REPORT ---
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
--- OUTSIDE RECORDS SUMMARY | 2017-09-27 22:40 | XMS REPORT ---
Author Author ROSELINE LUIS Organization [employer] Address Unknown Phone Unavailable Care Team Providers Care Consumer Electronics Merchandiser Name Role Phone ROSELINE LUIS CP Unavailable Allergies No Known Allergies Problems Problem Type Condition Code Onset Dates Condition Status Problem Cervicalgia 723.1 Active Problem Hypokalemia 276.8 Active Problem Headache 784.0 Active Problem Dysuria R30.0 Active Assessment Moderate mixed bipolar I disorder F31.62 Active Problem Cough R05 Active Problem Moderate mixed bipolar I disorder F31.62 Active Problem Eustachian tube dysfunction, unspecified laterality H69.80 Active Problem Diabetes 250.00 Active Problem Benign prostatic hyperplasia with lower urinary tract symptoms, unspecified morphology N40.1 Active Problem Hypokalemia E87.6 Active Problem Coronary atherosclerosis of unspecified type of vessel, [place] or graft 414.00 Active Problem 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 Active Problem Basal cell carcinoma of skin of other and unspecified parts of face 173.31 Active Problem Lumbago 724.2 Active Problem Unspecified disorder of kidney and ureter 593.9 Active Problem Essential hypertension, benign 401.1 Active Problem Encounter for long-term (current) use of other medications V58.69 Active Problem Persistent disorder of initiating or maintaining sleep 307.42 Active Problem Morbid obesity 278.01 Active Problem Hyperpotassemia 276.7 Active Medications No Known Medications Procedures Procedure Coding System Code Date Psychotherapy, patient &/family, 30 minutes, established patient CPT-4 76207 Oct 12, 2015 [facility] VISIT MENTAL HEALTH ESTAB PT CPT-4 G0470 Oct 12, 2015 Results No Known Results Summary Purpose [employer] Submission
--- OUTSIDE RECORDS SUMMARY | 2017-09-27 22:40 | XMS REPORT ---
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
--- OUTSIDE RECORDS SUMMARY | 2017-09-27 22:40 | XMS REPORT ---
Author Author NOEMI WASHBURN Organization [facility] Address [address] [place] [address] Care Team Providers Care Environmental Projects Advisor Name Role Phone NOEMI WASHBURN Unavailable PROBLEMS Type Condition ICD9-CM Code SIG69-OQ Code Onset Dates Condition Status SNOMED Code Problem Chronic pain G89.29 Active 07879084 Problem Reactive airway disease J45.909 Active 060827660767 Problem Leukocytosis D72.829 Active 940413174 Problem Diabetic polyneuropathy associated with type 2 diabetes mellitus E11.42 Active 71442568 Problem Essential hypertension I10 Active 43805086 Problem Insomnia, unspecified type G47.00 Active 652558398 Problem Bipolar I disorder, most recent episode (or current) mixed, moderate F31.62 Active 31002378 Problem Morbid obesity E66.01 Active 175266911 Problem Anxiety F41.9 Active 96281634 Problem Eye exam abnormal R93.8 Active 834235303 Problem Dysuria R30.0 Active 04914302 Problem Chronic lymphocytic leukemia C91.10 Active 88072991 Problem Lymphocytosis D72.820 Active 89290187 Problem Eustachian tube dysfunction, unspecified laterality H69.80 Active 80919033 Problem Benign prostatic hyperplasia with lower urinary tract symptoms, unspecified morphology N40.1 Active 409439072 Problem Cough R05 Active 87996575 Problem DM neuro manif type II E11.49 Active 17147551 Problem Hypokalemia E87.6 Active 56167555 Problem Diabetes E11.9 Active 30469059 ALLERGIES No Information SOCIAL HISTORY Never Assessed PLAN OF CARE VITAL SIGNS MEDICATIONS Unknown Medications RESULTS No Results PROCEDURES No Known procedures [...] obesity Medical History skin cancer-basal cell R spiritism (removed) Medical History Arthritis Medical History degenerative [...] tunnel release (Left) 2000 Surgical History EGD ([facility]) 2009 Surgical History colonoscopy 2009 ([facility]), 2013 ([facility]) Surgical History heart 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 04/2014 Surgical History carotid US 05/2014 Surgical History resection of skin cancer from Right spiritism Surgical History Biopsy of Lung Bilateral/Left lung lymph node 09/2016 Surgical History Bone Marrow Biopsy Surgical History port in the right chest wall 12/2016 Hospitalization History [facility] low potassium, low magnesium, chest painina 01/2015 Hospitalization History inability to urinate 09/16/15 Hospitalization History [facility] inpatient mental health early
--- OUTSIDE RECORDS SUMMARY | 2017-09-27 22:41 | XMS REPORT ---
Author NOEMI [facility] Address Unknown Phone Unavailable Care Team Providers Care Blind Escort Name Role Phone NOEMI WASHBURN CP Unavailable Allergies No Known Allergies Problems Problem Type Condition Code Onset Dates Condition Status Assessment Chronic pain G89.29 Active Problem Basal cell carcinoma of skin of other and unspecified parts of face 173.31 Active Problem Lumbago 724.2 Active Problem Coronary atherosclerosis of unspecified type of vessel, [place] or graft 414.00 Active Problem Eustachian tube [...] Instructions Start Date End Date Status Dosage Atorvastatin Calcium [facility] 07084608347 20 MG TAKE ONE TABLET BY MOUTH AT BEDTIME Losartan Potassium [facility] 98904099800 50 MG TAKE ONE TABLET BY MOUTH DAILY Fluticasone Propionate [facility] [address]-82 50 MCG/ACT INSTILL ONE SPRAY IN EACH NOSTRIL DAILY Gabapentin [facility] [address]-93 300 MG Orally 2 times a day April 21, 2016 1 capsule Potassium Chloride Kath[facility] ER [facility] 28525075259 20 MEQ TAKE TWO TABLETS BY MOUTH DAILY Seroquel [facility] [address]-37 100 MG Orally Once a day Jul 27, 2016 1 tablet Ambien [facility] [address]-77 10 mg Orally Once a day November 26, 2014 1 tablet at bedtime Lantus [facility] [address]-87 100 UNIT/ML Subcutaneous 2 times a day Inject 70 units Ventolin HFA [facility] [address]-96 108 (90 Base) MCG/ACT Inhalation every 4 hrs December 25, 2015 2 puffs as needed Metformin HCl [facility] 37724547782 1000 MG TAKE ONE TABLET BY MOUTH TWICE DAILY Abilify [facility] [address]-41 20 MG Orally Once a day Jul 27, 2016 1 tablet Flomax [facility] [address]-65 0.4 MG Orally Once a day Sep 17, 2015 1 capsule 30 minutes after the same meal each day Klonopin [facility] [address]-40 1 MG Orally once a day May 27, 2015 1 tablet Symbicort [facility] 56786739917 80-4.5 MCG/ACT Inhalation Twice a day 2 puffs Victoza [facility] 48088728810 18 MG/3ML Subcutaneous Once a day INJECT 1.8 mg daily Incruse Ellipta [facility] [address]-66 62.5 MCG/INH INHALE ONE PUFF BY MOUTH ONCE DAILY Aspirin [facility] [address]-92 81 mg May 22, 2014 1 tablet by Oral route 1 time per day Trintellix [facility] [address]-41 20 MG Orally Once a day Jul 27, 2016 1 tablet Percocet [facility] [address]-45 10-325 MG Orally 4 times a day November 26, 2014 1 tablet as needed Losartan Potassium [facility] [address]-60 100 MG Orally TAKE ONE TABLET BY MOUTH ONCE DAILY (MUST HAVE APPOINTMENT FOR REFILL) Naproxen [facility] [address]-25 500 MG Orally every 12 hrs for headache March 1 tablet as needed Diabetic Shoes [facility] 0 Apr 30, 2015 as directed Vitamin D3 [facility] 01836-58852 1,000 unit May 24, 2012 2 capsule by Oral route 1 time per day Nexium [facility] 22772169364 40 MG TAKE ONE CAPSULE BY MOUTH ONCE DAILY Gabapentin [facility] [address]-25 300 mg May 22, 2014 1 capsule by Oral route 2 times per day Zofran [facility] 81672981422 4 MG Orally 3 times a day prn nausea and vomiting 1 tablet Zetia [facility] 83169283798 10 MG TAKE ONE TABLET BY MOUTH DAILY Depakote ER [facility] 49755425308 500 MG take 1 tablet by Oral route 2 times per day Singulair [facility] [address]-16 10 mg December 17, 2014 1 Tablet by Oral route 1 time per day Furosemide [facility] 25916196345 40 MG TAKE ONE TABLET BY MOUTH ONCE DAILY NovoLog Flexpen [facility] 74589829265 100 UNIT/ML INJECT 30 UNITS SUBCUTANEOUSLY WITH BREAKFAST, 30 UNITS WITH LUNCH AND 40 UNITS WITH EVENING MEAL Clopidogrel Bisulfate [facility] 23775782834 75 MG TAKE ONE TABLET BY MOUTH DAILY Metoprolol Succinate ER [facility] [address]-97 50 mg Orally twice a day 1 tablet Results No Known Results Summary Purpose [employer] Submission
--- OUTSIDE RECORDS SUMMARY | 2017-09-27 22:41 | XMS REPORT ---
Author MARQUITA Babb [facility] eClinicalWorks Address Unknown Phone Unavailable Care Team Providers Care Cattery Operator Name Role Phone MARQUITA WASHBURN CP Unavailable Allergies, Adverse Reactions, Alerts Substance Reaction Event Type N.K.D.A. Info Not Available Non Drug Allergy Problems Problem Type Condition Code Onset Dates Condition Status Problem Persistent disorder of initiating or maintaining sleep 307.42 Active Assessment Eustachian tube dysfunction, unspecified laterality H69.80 Active Problem Hyperpotassemia 276.7 Active Assessment Hypokalemia E87.6 Active Problem Cervicalgia 723.1 Active Problem Hypokalemia 276.8 Active Problem Headache 784.0 Active Problem Dysuria R30.0 Active Problem Cough R05 Active Assessment Dysuria R30.0 Active Assessment Cough R05 Active Problem Moderate mixed bipolar I disorder F31.62 Active Assessment Benign prostatic hyperplasia with lower urinary tract symptoms, unspecified morphology N40.1 Active Problem Eustachian tube dysfunction, unspecified laterality H69.80 Active Problem Diabetes 250.00 Active Problem Benign prostatic hyperplasia with lower urinary tract symptoms, unspecified morphology N40.1 Active Problem Hypokalemia E87.6 Active Problem Coronary atherosclerosis of unspecified type of vessel, [place] or graft 414.00 Active Problem 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 Active Problem Basal cell carcinoma of skin of other and unspecified parts of face 173.31 Active Problem Lumbago 724.2 Active Problem Unspecified disorder of kidney and ureter 593.9 Active Problem Essential hypertension, benign 401.1 Active Problem Encounter for long-term (current) use of other medications V58.69 Active Problem Morbid obesity 278.01 Active Medications Medication Code System Code Instructions Start Date End Date Status Dosage Aspirin [facility] [address]-32 81 mg May 22, 2014 1 tablet by Oral route 1 time per day Zetia [facility] [address]-16 10 MG TAKE ONE TABLET BY MOUTH DAILY Metformin HCl [facility] 02913404035 1000 MG TAKE ONE TABLET BY MOUTH TWICE DAILY Abilify [facility] 85203261991 30 MG TAKE ONE TABLET BY MOUTH ONCE DAILY Diabetic Shoes ND 0 Apr 30, 2015 as directed Diabetic Shoes ND 0 0 1 pair of shoes Alan to sign in Marquita's absense April 20, 2015 as directed PredniSONE [facility] [address]-85 20 MG Orally Once a day Oct 12, 2015 Oct 17, 2015 1 tablet Nexium [facility] [address]-41 40 MG TAKE ONE CAPSULE BY MOUTH DAILY ProAir HFA [facility] 89323037728 108 (90 Base) MCG/ACT INHALE TWO PUFFS BY MOUTH EVERY 4 TO 6 HOURS NEEDED FOR SHORTNESS OF BREATH/COUGH Depakote ER [facility] 60513740651 500 MG take 1 tablet by Oral route 2 times per day Atorvastatin Calcium [facility] [address]-59 20 MG TAKE ONE TABLET BY MOUTH AT BEDTIME Lipitor [facility] [address]-77 40 mg Nov 08, 2013 1 tablet by Oral route 1 time per day Spiriva HandiHaler [facility] 74523131066 18 MCG INHALE CONTENTS OF ONE CAPSULE BY MOUTH ONCE DAILY (TWO INHALATIONS PER ONE CAPSULE) Ambien [facility] [address]-39 10 MG November 26, 2014 1 tablet by Oral route 1 time per day at hs Potassium Chloride Kathi ER [facility] 27813585447 20 MEQ TAKE TWO TABLETS BY MOUTH DAILY Promethazine-Codeine [facility] [address]-45 6.25-10 MG/5ML Orally every 6 hrs prn cough Sep 29, 2015 5 ml as needed Furosemide [facility] 55215583923 40 MG TAKE ONE TABLET BY MOUTH DAILY Flomax [facility] [address]-47 0.4 MG Orally Once a day Sep 17, 2015 1 capsule 30 minutes after the same meal each day Lantus [facility] 81807951886 100 UNIT/ML INJECT 100 UNITS SUBCUTANEOUSLY TWICE DAILY Clopidogrel Bisulfate [facility] 10667705073 75 MG TAKE ONE TABLET BY MOUTH DAILY Singulair [facility] [address]-74 10 mg December 17, 2014 1 Tablet by Oral route 1 time per day Brintellix [facility] [address]-68 10 MG Orally Once a day April 22, 2015 1 tablet Seroquel [facility] [address]-12 50 MG TAKE ONE TABLET BY MOUTH THREE TIMES DAILY morphine ND 0 15 mg December 17, 2014 1 Tablet by Oral route 1 time per day at HS Klonopin [facility] [address]-87 1 MG Orally once a day Dr. Pederson to sign for Hans May 27, 2015 1 tablet Fluticasone Propionate [facility] 30318198940 50 MCG/ACT INSTILL ONE SPRAY IN EACH NOSTRIL DAILY Gabapentin [facility] [address]-89 300 mg May 22, 2014 1 capsule by Oral route 2 times per day Percocet [facility] [address]-73 10-325 MG November 26, 2014 take 1 tablet by Oral route as needed 4 times per day PRN Losartan Potassium [facility] 26367605008 50 MG TAKE ONE TABLET BY MOUTH DAILY Metoprolol Succinate ER [facility] 64908119308 50 MG Orally Once a day 1 tablet Victoza [facility] 52117744257 18 MG/3ML INJECT 0.6 MG SUBCUTANEOUSLY DAILY FOR 3 DAYS THEN INCREASE TO 1.2 MG DAILY THEREAFTER Fetzima [facility] 55602747755 40 MG TAKE ONE CAPSULE BY MOUTH DAILY NovoLog Flexpen [facility] [address]-76 100 UNIT/ML Subcutaneous 3 times a day INJECT 40 UNITS SUBCUTANEOUSLY WITH EVENING MEAL AND 30 UNITS WITH BREAKFAST AND LUNCH Procedures Procedure Coding System Code Date [facility] C[facility] NOBLL Oct 12, 2015 VENIPUNCT, ROUTINE* CPT-4 33862 Oct 12, 2015 CHEST X-RAY CPT-4 73252 Oct 12, 2015 Office Visit, Est Pt., Level 3 CPT-4 96864 Oct 12, 2015 [facility] VISIT ESTABLISHED PATIENT CPT-4 G0467 Oct 12, 2015 Vital Signs Date/Time: Oct 12, 2015 Temperature 98.2 F Weight 330.9 lbs Height 67 in BMI 51.82 Index Blood Pressure Diastolic 110 mmHg Blood Pressure Systolic 196 mmHg Cardiac Monitoring Heart Rate 88 bpm Results Name Result Date Reference Range Unit Abnormality Flag ROUTINE VENIPUNCTURE POTASSIUM ----Potassium, Serum 4.0 20151012 3.5-5.2 mmol/L Summary Purpose eClinicalWorks Submission
--- OUTSIDE RECORDS SUMMARY | 2017-09-27 22:41 | XMS REPORT ---
Author Author NOEMI WASHBURN [facility] eClinicalWorks Address Unknown Phone Unavailable Care Team Providers Care Cotton Cleaner Name Role Phone NOEMI WASHBURN CP Unavailable [...] Coronary atherosclerosis of unspecified type of vessel, [place] or graft 414.00 Active Medications Medication Code System Code Instructions Start Date End Date Status Dosage Lantus [facility] [address]-86 100 UNIT/ML inject 100 Units by Subcutaneous route 2 times per day Potassium Chloride Kathi ER [facility] [address]-51 20 MEQ Orally Once a day TAKE TWO TABLETS BY MOUTH DAILY Metformin HCl [facility] [address]-57 1000 MG TAKE ONE TABLET BY MOUTH TWICE DAILY Plavix [facility] [address]-63 75 MG 1 tablet by Oral route 1 time per day Ambien [facility] [address]-80 10 MG November 26, 2014 1 tablet by Oral route 1 time per day at Abilify [facility] [address]-47 30 MG Orally Once a day March 25, 2015 1 tablet Losartan Potassium [facility] [address]-83 50 MG TAKE ONE TABLET BY MOUTH DAILY Nexium [facility] [address]-90 40 MG TAKE ONE CAPSULE BY MOUTH DAILY ProAir HFA [facility] [address]-62 108 (90 Base) MCG/ACT INHALE TWO PUFFS BY MOUTH EVERY 4 TO 6 HOURS NEEDED FOR SHORTNESS OF BREATH/COUGH Furosemide [facility] [address]-19 40 MG 1 tablet by Oral route 1 time per day Zetia [facility] [address]-98 10 MG TAKE ONE TABLET BY MOUTH DAILY Spiriva HandiHaler [facility] [address]-29 18 MCG INHALE CONTENTS OF ONE CAPSULE BY MOUTH ONCE DAILY (TWO INHALATIONS PER ONE CAPSULE) Results No Known Results Summary Purpose eClinicalWorks Submission
--- OUTSIDE RECORDS SUMMARY | 2017-09-27 22:41 | XMS REPORT ---
Author Author NOEMI WASHBURN Organization [facility] Address [address] [place] [address] Care Team Providers Care Lance Crewmember Name Role Phone NOEMI WASHBURN Unavailable PROBLEMS Type Condition ICD9-CM Code [id number] Code Onset Dates Condition Status SNOMED Code Problem Leukocytosis D72.829 Active 614611080 Problem Bipolar I disorder, most recent episode (or current) mixed, moderate F31.62 Active 48599411 Problem Reactive airway disease J45.909 Active 844369194015 Problem Polyneuropathy associated with underlying disease G63 Active 891942566 Problem Chronic lymphocytic leukemia C91.10 Active 18114395 Problem Diabetic polyneuropathy associated with type 2 diabetes mellitus E11.42 Active 09393143 Problem Anxiety F41.9 Active 03961015 Problem Insomnia, unspecified type G47.00 Active 726565136 Problem Essential hypertension I10 Active 24469158 Problem Morbid obesity E66.01 Active 522904239 Problem Dysuria R30.0 Active 85325561 Problem Cough R05 Active 53809267 Problem Lymphocytosis D72.820 Active 73295048 Problem Eye exam abnormal R93.8 Active 000701941 Problem Benign prostatic hyperplasia with lower urinary tract symptoms, unspecified morphology N40.1 Active 117811137 Problem DM neuro manif type II E11.49 Active 17886905 Problem Hypokalemia E87.6 Active 53489058 Problem Diabetes E11.9 Active 10971923 Problem Eustachian tube dysfunction, unspecified laterality H69.80 Active 43614209 Problem Chronic pain G89.29 Active 65998473 ALLERGIES No Information SOCIAL HISTORY Never Assessed PLAN OF CARE VITAL SIGNS MEDICATIONS Medication Instructions Dosage Frequency Start Date End Date Duration Status Lantus 100 UNIT/ML Subcutaneous 2 times a day 70 units 12h 30 days Active RESULTS [...] obesity Medical History skin cancer-basal cell R mandaeism (removed) Medical History Arthritis Medical History degenerative [...] tunnel release (Left) 2000 Surgical History EGD ([facility]) 2009 Surgical History colonoscopy 2009 ([facility]), 2013 ([place]) Surgical History heart 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 04/2014 Surgical History carotid US 05/2014 Surgical History resection of skin cancer from Right mandaeism Surgical History Biopsy of Lung Bilateral/Left lung lymph node 09/2016 Surgical History Bone Marrow Biopsy Surgical History port in the right chest wall 12/2016 Hospitalization History [facility] low potassium, low magnesium, chest painina 01/2015 Hospitalization History inability to urinate 09/16/15 Hospitalization History [facility] inpatient mental health early
--- OUTSIDE RECORDS SUMMARY | 2017-09-27 22:42 | XMS REPORT ---
Author NOEMI Babb Organization eClinicalWorks Address Unknown Phone Unavailable Care Team Providers Care Accounting Software Specialist Name Role Phone NOEMI WASHBURN CP Unavailable Allergies No Known Allergies Problems Problem Type Condition Code Onset Dates Condition Status Problem Basal cell carcinoma of skin of other and unspecified parts of face 173.31 Active Problem Diabetes 250.00 Active Problem Lumbago 724.2 Active Problem Eustachian tube dysfunction, unspecified laterality H69.80 Active Problem Coronary atherosclerosis of unspecified type of vessel, [place] or graft 414.00 Active Problem Hypokalemia E87.6 Active Problem Cough R05 Active Problem Benign prostatic hyperplasia with lower urinary tract symptoms, unspecified morphology N40.1 Active Problem Chronic pain G89.29 Active Problem Leukocytosis D72.829 Active Problem Morbid obesity 278.01 Active Problem Encounter for long-term (current) use of other medications V58.69 Active Problem Reactive airway disease J45.909 Active Problem 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 Active Problem Moderate mixed bipolar I disorder F31.62 Active Problem Dysuria R30.0 Active Problem Diabetes E11.9 Active Problem DM neuro manif type II E11.49 Active Problem Persistent disorder of initiating or maintaining sleep 307.42 Active Problem Hyperpotassemia 276.7 Active Problem Unspecified disorder of kidney and ureter 593.9 Active Problem Essential hypertension, benign 401.1 Active Problem Lymphocytosis D72.820 Active Problem Hypokalemia 276.8 Active Problem Cervicalgia 723.1 Active Problem Headache 784.0 Active Medications Medication Code System Code Instructions Start Date End Date Status Dosage Percocet [facility] [address]-28 10-325 MG Orally 4 times a day November 26, 2014 1 tablet as needed Results No Known Results Summary Purpose eClinicalWorks Submission
--- OUTSIDE RECORDS SUMMARY | 2017-09-27 22:42 | XMS REPORT ---
Author Author ALYSE Lazaro Organization [facility] Address Unknown Care Team Providers Care Silverware Etcher Name Role Phone ALYSE Lazaro Unavailable PROBLEMS Type Condition ICD9-CM Code JET15-GO Code Onset Dates Condition Status SNOMED Code Problem Leukocytosis D72.829 Active 284591603 Problem Bipolar I disorder, most recent episode (or current) mixed, moderate F31.62 Active 43865667 Problem Reactive airway disease J45.909 Active 846615437257 Problem Polyneuropathy associated with underlying disease G63 Active 359515113 Problem Chronic lymphocytic leukemia C91.10 Active 56956018 Problem Diabetic polyneuropathy associated with type 2 diabetes mellitus E11.42 Active 65923814 Problem Anxiety F41.9 Active 95090531 Problem Insomnia, unspecified type G47.00 Active 196154443 Problem Essential hypertension I10 Active 69999103 Problem Morbid obesity E66.01 Active 679981149 Problem Dysuria R30.0 Active 23420692 Problem Cough R05 Active 62552412 Problem Lymphocytosis D72.820 Active 77361057 Problem Eye exam abnormal R93.8 Active 966421430 Problem Benign prostatic hyperplasia with lower urinary tract symptoms, unspecified morphology N40.1 Active 298692245 Problem DM neuro manif type II E11.49 Active 85428373 Problem Hypokalemia E87.6 Active 41751141 Problem Diabetes E11.9 Active 04428541 Problem Eustachian tube dysfunction, unspecified laterality H69.80 Active 77520032 Problem Chronic pain G89.29 Active 41697623 ALLERGIES No Information SOCIAL HISTORY Never Assessed PLAN OF CARE Activity Details Follow Up 3 Months Reason: VITAL SIGNS Height 67 in 2017-01-18 Weight 371 lbs 2017-01-18 Heart Rate 80 bpm 2017-01-18 Respiratory Rate 24 2017-01-18 BMI 58.10 kg/m2 2017-01-18 Blood pressure systolic 142 mmHg 2017-01-18 Blood pressure diastolic 88 mmHg 2017-01-18 MEDICATIONS Medication Instructions Dosage Frequency Start Date End Date Duration Status Clopidogrel Bisulfate 75 MG TAKE ONE TABLET BY MOUTH DAILY 90 Active Losartan Potassium 100 MG TAKE ONE TABLET BY MOUTH ONCE DAILY (MUST HAVE APPOINTMENT FOR REFILL) Active Flomax 0.4 MG Orally Once a day 1 capsule 30 minutes after the same meal each day 24h Aug, 90 Active Aspirin 81 mg 1 tablet by Oral route 1 time per day Apr, Active Metoprolol Succinate ER 50 mg Orally twice a day 1 tablet 12h 90 Active Abilify 30 MG Orally Once a day 1 tablet 24h 30 days Active Ambien 10 mg Orally Once a day 1 tablet at bedtime 24h Nov, 30 days Active Clonidine HCl 0.1 MG Orally 2 times a day 1 tablet 12h Oct, 30 day(s) Active Depakote ER 500 MG take 1 tablet by Oral route 2 times per day Active Vitamin D3 1,000 unit 2 capsule by Oral route 1 time per day Apr, Active Seroquel 100 MG Orally Once a day 1 tablet 24h Jul, 30 days Active Percocet 10-325 MG Orally 4 times a day 1 tablet as needed 6h Dec, 28 days Active Lantus 100 UNIT/ML Subcutaneous 2 times a day Inject 70 units 12h 30 days Active Valium 5 MG Orally three times a day 1 tablet as needed 8h Oct, 30 days Active Atorvastatin Calcium 20 MG TAKE ONE TABLET BY MOUTH AT BEDTIME 90 Active Zofran 4 MG Orally 3 times a day prn nausea and vomiting 1 tablet 5 Active Symbicort 80-4.5 MCG/ACT Inhalation Twice a day 2 puffs 12h 30 Active Victoza 18 MG/3ML INJECT 1.8MG SUBCUTANEOUSLY ONCE DAILY 30 Active Nexium 40 MG TAKE ONE CAPSULE BY MOUTH ONCE DAILY 90 Days Active Ventolin HFA 108 (90 Base) MCG/ACT Inhalation every 4 hrs 2 puffs as needed 4h Dec, 30 days Active Singulair 10 mg 1 Tablet by Oral route 1 time per day Nov, Active Furosemide 40 MG TAKE ONE TABLET BY MOUTH ONCE DAILY 90 Active NovoLog Flexpen 100 UNIT/ML INJECT 30 UNITS SUBCUTANEOUSLY WITH BREAKFAST, 30 UNITS WITH LUNCH AND 40 UNITS WITH EVENING MEAL 90 Active Imbruvica 140 MG Orally Once a day 3 capsules in the evening 24h Oct, Active Gabapentin 300 MG Orally 2 times a day 1 capsule 12h Mar, Active Naproxen 500 MG TAKE ONE TABLET BY MOUTH EVERY 12 HOURS NEEDED FOR HEADACHE 30 Active Zetia 10 MG TAKE ONE TABLET BY MOUTH DAILY 90 Active Fluticasone Propionate 50 MCG/ACT INSTILL ONE SPRAY IN EACH NOSTRIL DAILY 30 Active Potassium Chloride Kathi ER 20 MEQ TAKE TWO TABLETS BY MOUTH DAILY 90 Active RESULTS No Results PROCEDURES Procedure Date Ordered Result Body Site [facility] VISIT ESTABLISHED PATIENT January 18, 2017 IMMUNIZATIONS No Known Immunizations MEDICAL (GENERAL) HISTORY Type Description Date Medical History type II diabetes Medical History coronary artery disease stress test 01/5015 Medical History chronic obstructive pulmonary disease (COPD) Medical History gastroesophageal reflux disease (GERD) Medical History acute renal failure Medical History erectile dysfunction Medical History hyperlipidemia Medical History obesity Medical History skin cancer-basal cell R confucianism (removed) Medical History Arthritis Medical History degenerative [...] EGD ([place]) 2009 Surgical History colonoscopy 2009 ([facility]), 2013 ([place]) Surgical History heart 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 04/2014 Surgical History carotid US 05/2014 Surgical History resection of skin cancer from Right confucianism Surgical History Biopsy of Lung Bilateral/Left lung lymph node 09/2016 Surgical History Bone Marrow Biopsy Surgical History port in the right chest wall 12/2016 Hospitalization History [facility] low potassium, low magnesium, chest painina 01/2015 Hospitalization History inability to urinate 09/16/15 Hospitalization History [facility] mental health early
--- OUTSIDE RECORDS SUMMARY | 2017-09-27 22:42 | XMS REPORT ---
Author Author ROSELINE LUIS Organization [facility] Address [address] [place] [address] Care Team Providers Care Sporting Goods Sales Associate Name Role Phone TOBYTESSROSELINE Unavailable PROBLEMS Type Condition ICD9-CM Code [id number] Code Onset Dates Condition Status SNOMED Code Assessment Bipolar I disorder, most recent episode (or current) mixed, moderate F31.62 May, Active 625698960 Problem Basal cell carcinoma of skin of other and unspecified parts of face 173.31 Active 072154301 Problem Lumbago 724.2 Active 727575014 Problem Coronary atherosclerosis of unspecified type of vessel, [place] or graft 414.00 Active 82650883 Problem 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 Active 508204376 Problem Hypokalemia E87.6 Active 09292727 Problem Encounter for long-term (current) use of other medications V58.69 Active 809855990 Problem Benign prostatic hyperplasia with lower urinary tract symptoms, unspecified morphology N40.1 Active 754892862 Problem Morbid obesity 278.01 Active 173400572 Problem Cough R05 Active 81916429 Problem DM neuro manif type II E11.49 Active 91261219 Problem Dysuria R30.0 Active 88080424 Problem Insomnia, unspecified type G47.00 Active 721632983 Problem Bipolar I disorder, most recent episode (or current) mixed, moderate F31.62 Active 69085494 Problem Persistent disorder of initiating or maintaining sleep 307.42 Active 18826217 Problem Essential hypertension, benign 401.1 Active 0109797 Problem Unspecified disorder of kidney and ureter 593.9 Active 574341108 Problem Leukocytosis D72.829 Active 644120700 Problem Diabetes E11.9 Active 68960246 Problem Reactive airway disease J45.909 Active 680647997770 Problem Chronic pain G89.29 Active 54436448 Problem Headache 784.0 Active 42793939 Problem Lymphocytosis D72.820 Active 75781154 Problem Hyperpotassemia 276.7 Active 75134015 Problem Cervicalgia 723.1 Active 00498571 Problem Diabetes 250.00 Active 25602232 Problem Eustachian tube dysfunction, unspecified laterality H69.80 Active 14912713 Problem Eye exam abnormal R93.8 Active 362639049 Problem Hypokalemia 276.8 Active 15451792 ALLERGIES Unknown Allergies SOCIAL HISTORY No smoking Hx information available PLAN OF CARE VITAL SIGNS MEDICATIONS Unknown Medications RESULTS No Results PROCEDURES Procedure Date Ordered Related Diagnosis Body Site [facility] VISIT MENTAL HEALTH ESTAB PT Jun 02, 2016 Psychotherapy, patient &/family, 30 minutes, established patient Jun 02, 2016 IMMUNIZATIONS No Known Immunizations
--- OUTSIDE RECORDS SUMMARY | 2017-09-27 22:42 | XMS REPORT ---
Author Author NOEMI WASHBURN Organization [facility] Address [address] [place] [address] Care Team Providers Care City Secretary Name Role Phone NOEMI WASHBURN Unavailable PROBLEMS Type Condition ICD9-CM Code QOA54-YS Code Onset Dates Condition Status SNOMED Code Problem Chronic pain G89.29 Active 11365245 Problem Reactive airway disease J45.909 Active 744394631665 Problem Leukocytosis D72.829 Active 042165578 Problem Diabetic polyneuropathy associated with type 2 diabetes mellitus E11.42 Active 91201163 Problem Essential hypertension I10 Active 02874734 Problem Insomnia, unspecified type G47.00 Active 783563978 Problem Bipolar I disorder, most recent episode (or current) mixed, moderate F31.62 Active 32899795 Problem Morbid obesity E66.01 Active 487953592 Problem Anxiety F41.9 Active 41641536 Problem Eye exam abnormal R93.8 Active 490201342 Problem Dysuria R30.0 Active 46216081 Problem Chronic lymphocytic leukemia C91.10 Active 55225853 Problem Lymphocytosis D72.820 Active 31119875 Problem Eustachian tube dysfunction, unspecified laterality H69.80 Active 77988862 Problem Benign prostatic hyperplasia with lower urinary tract symptoms, unspecified morphology N40.1 Active 947383583 Problem Cough R05 Active 72547430 Problem DM neuro manif type II E11.49 Active 50790707 Problem Hypokalemia E87.6 Active 11627878 Problem Diabetes E11.9 Active 24880286 ALLERGIES No Information SOCIAL HISTORY Never Assessed [...] obesity Medical History skin cancer-basal cell R quaker (removed) Medical History Arthritis Medical History degenerative [...] tunnel release (Left) 2000 Surgical History EGD ([facility]) 2009 Surgical History colonoscopy 2009 ([facility]), 2013 ([place]) Surgical History heart 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 04/2014 Surgical History carotid US 05/2014 Surgical History resection of skin cancer from Right quaker Surgical History Biopsy of Lung Bilateral/Left lung lymph node 09/2016 Surgical History Bone Marrow Biopsy Surgical History port in the right chest wall 12/2016 Hospitalization History [facility] low potassium, low magnesium, chest painina 01/2015 Hospitalization History inability to urinate 09/16/15 Hospitalization History [facility] inpatient mental health early
--- OUTSIDE RECORDS SUMMARY | 2017-09-27 22:42 | XMS REPORT ---
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
--- OUTSIDE RECORDS SUMMARY | 2017-09-27 22:42 | XMS REPORT ---
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 Active Medications Medication Code System Code Instructions Start Date End Date Status Dosage metformin [facility] [address]-52 1,000 mg November 25, 2014 take 1 tablet by Oral route 2 times per day Must make and attend f/u appt for refills Potassium Chloride Kathi ER [facility] 27255012911 20 MEQ TAKE TWO TABLETS BY MOUTH DAILY Metformin HCl [facility] 77494526796 1000 MG TAKE ONE TABLET BY MOUTH TWICE DAILY Spiriva HandiHaler [facility] 33522111392 18 MCG INHALE CONTENTS OF ONE CAPSULE BY MOUTH ONCE DAILY (TWO INHALATIONS PER ONE CAPSULE) Abilify [facility] 99202191081 30 MG TAKE ONE TABLET BY MOUTH ONCE DAILY Fetzima [facility] 91690132748 40 MG TAKE ONE CAPSULE BY MOUTH DAILY Metoprolol Succinate ER [facility] 92658978308 50 MG Orally Once a day 1 tablet Diabetic Shoes ND 0 Apr 30, 2015 as directed Ambien [facility] [address]-17 10 MG November 26, 2014 1 tablet by Oral route 1 time per day at hs ProAir HFA [facility] 55302218854 108 (90 Base) MCG/ACT INHALE TWO PUFFS BY MOUTH EVERY 4 TO 6 HOURS NEEDED FOR SHORTNESS OF BREATH/COUGH Levaquin [facility] [address]-90 500 MG Orally Once a day Sep 29, 2015 Oct 09, 2015 1 tablet Depakote ER [facility] 92980169508 500 MG take 1 tablet by Oral route 2 times per day Percocet [facility] [address]-31 10-325 MG November 26, 2014 take 1 tablet by Oral route as needed 4 times per day PRN NovoLog Flexpen [facility] [address]-59 100 UNIT/ML Subcutaneous 3 times a day INJECT 40 UNITS SUBCUTANEOUSLY WITH EVENING MEAL AND 30 UNITS WITH BREAKFAST AND LUNCH Symbicort [facility] 25728699258 80-4.5 MCG/ACT Inhalation Twice a day 2 puffs Seroquel [facility] [address]-47 50 MG TAKE ONE TABLET BY MOUTH THREE TIMES DAILY Flomax [facility] [address]-48 0.4 MG Orally Once a day Sep 17, 2015 1 capsule 30 minutes after the same meal each day Zetia [facility] [address]-80 10 MG TAKE ONE TABLET BY MOUTH DAILY Promethazine-Codeine [facility] [address]-18 6.25-10 MG/5ML Orally every 6 hrs prn cough Sep 29, 2015 5 ml as needed Losartan Potassium [facility] 02834597089 50 MG TAKE ONE TABLET BY MOUTH DAILY Gabapentin [facility] [address]-96 300 mg May 22, 2014 1 capsule by Oral route 2 times per day Atorvastatin Calcium [facility] [address]-13 20 MG TAKE ONE TABLET BY MOUTH AT BEDTIME Lantus [facility] 08601325027 100 UNIT/ML INJECT 100 UNITS SUBCUTANEOUSLY TWICE DAILY Clopidogrel Bisulfate [facility] 64484292891 75 MG TAKE ONE TABLET BY MOUTH DAILY Vitamin D3 [facility] 58845-93965 1,000 unit May 24, 2012 2 capsule by Oral route 1 time per day Singulair [facility] [address]-59 10 mg December 17, 2014 1 Tablet by Oral route 1 time per day Victoza [facility] 80155132435 18 MG/3ML INJECT 0.6 MG SUBCUTANEOUSLY DAILY FOR 3 DAYS THEN INCREASE TO 1.2 MG DAILY THEREAFTER Aspirin [facility] [address]-77 81 mg May 22, 2014 1 tablet by Oral route 1 time per day Fluticasone Propionate [facility] 80301156311 50 MCG/ACT INSTILL ONE SPRAY IN EACH NOSTRIL DAILY Nexium [facility] [address]-17 40 MG TAKE ONE CAPSULE BY MOUTH DAILY Diabetic Shoes NDC 0 0 1 pair [facility] 20, 2015 as directed Lipitor [facility] [address]-27 40 mg Nov 08, 2013 1 tablet by Oral route 1 time per day Furosemide [facility] 31563608417 40 MG TAKE ONE TABLET BY MOUTH DAILY Klonopin [facility] [address]-06 1 MG Orally once a day Dr. Pederson to sign for Hans May 27, 2015 1 tablet Brintellix [facility] [address]-41 10 MG Orally Once a day April 22, 2015 1 tablet Plavix [facility] [address]-73 75 MG 1 tablet by Oral route 1 time per day morphine NDC 0 15 mg December 17, 2014 1 Tablet by Oral route 1 time per day at Procedures Procedure Coding System Code Date Office Visit, Est Pt., Level 3 CPT-4 96984 Sep 29, 2015 [facility] VISIT ESTABLISHED PATIENT CPT-4 G0467 Sep 29, 2015 Vital Signs Date/Time: Sep 29, 2015 Temperature 98.6 F Weight 333.4 lbs Height 67 in BMI 52.21 Index Blood Pressure Diastolic 82 mmHg Blood Pressure Systolic 156 mmHg Cardiac Monitoring Heart Rate 84 bpm Results No Known Results Summary Purpose eClinicalWorks Submission
--- OUTSIDE RECORDS SUMMARY | 2017-09-27 22:42 | XMS REPORT ---
Author NOEMI Babb [facility] eClinicalWorks Address Unknown Phone Unavailable Care Team Providers Care Die Lay Out Worker Name Role Phone NOEMI WASHBURN CP Unavailable Allergies, Adverse Reactions, Alerts Substance Reaction Event Type N.K.D.A. Info Not Available Non Drug Allergy Problems Problem Type Condition Code Onset Dates Condition Status Assessment Essential hypertension I10 Active Assessment Diabetes E11.9 Active Problem Basal cell carcinoma of skin of other and unspecified parts of face 173.31 Active Problem Lumbago 724.2 Active Problem Coronary atherosclerosis of unspecified type of vessel, [place] or graft 414.00 Active Problem Eustachian tube [...] Instructions Start Date End Date Status Dosage Symbicort [facility] 25429379997 80-4.5 MCG/ACT Inhalation Twice a day 2 puffs Gabapentin [facility] [address]-95 300 mg May 22, 2014 1 capsule by Oral route 2 times per day Flomax [facility] [address]-25 0.4 MG Orally Once a day Sep 17, 2015 1 capsule 30 minutes after the same meal each day Klonopin [facility] [address]-99 1 MG Orally once a day Dr. Pederson to sign for Hans May 27, 2015 1 tablet Singulair [facility] [address]-81 10 mg December 17, 2014 1 Tablet by Oral route 1 time per day Zetia [facility] 24999339603 10 MG TAKE ONE TABLET BY MOUTH ONCE DAILY (MUST HAVE APPOINTMENT FOR REFILL) Furosemide [facility] 25148953557 40 MG TAKE ONE TABLET BY MOUTH ONCE DAILY Diabetic Shoes [facility] 0 Apr 30, 2015 as directed Lantus [facility] [address]-99 100 UNIT/ML Subcutaneous 2 times a day Inject 70 units Aspirin [facility] [address]-47 81 mg May 22, 2014 1 tablet by Oral route 1 time per day Losartan Potassium [facility] [address]-72 100 MG Orally TAKE ONE TABLET BY MOUTH ONCE DAILY (MUST HAVE APPOINTMENT FOR REFILL) Gabapentin [facility] [address]-29 300 MG Orally 2 times a day April 21, 2016 1 capsule Potassium Chloride Kathi ER [facility] 13932619659 20 MEQ TAKE TWO TABLETS BY MOUTH ONCE DAILY (MUST HAVE APPOINTMENT FOR REFILL) NovoLog Flexpen [facility] 78077980826 100 UNIT/ML INJECT 30 UNITS SUBCUTANEOUSLY WITH BREAKFAST, 30 UNITS WITH LUNCH AND 40 UNITS WITH EVENING MEAL Percocet [facility] [address]-22 10-325 MG Orally 4 times a day November 26, 2014 1 tablet as needed Metoprolol Succinate ER [facility] [address]-86 50 mg Orally twice a day 1 tablet Seroquel [facility] 84460769718 50 MG TAKE ONE TABLET BY MOUTH THREE TIMES DAILY Clopidogrel Bisulfate [facility] 64913272687 75 MG TAKE ONE TABLET BY MOUTH DAILY Atorvastatin Calcium [facility] 35672936582 20 MG TAKE ONE TABLET BY MOUTH AT BEDTIME Victoza [facility] 06773642840 18 MG/3ML Subcutaneous Once a day INJECT 1.8 mg daily Depakote ER [facility] 30957100792 500 MG take 1 tablet by Oral route 2 times per day Nexium [facility] 58220610379 40 MG TAKE ONE CAPSULE BY MOUTH ONCE DAILY Abilify [facility] 64984532840 30 MG TAKE ONE TABLET BY MOUTH ONCE DAILY Vitamin D3 [facility] 33357-50367 1,000 unit May 24, 2012 2 capsule by Oral route 1 time per day Ventolin HFA [facility] [address]-59 108 (90 Base) MCG/ACT Inhalation every 4 hrs December 25, 2015 2 puffs as needed Brintellix [facility] 89020645470 10 MG Orally Once a day 1 tablet Fluticasone Propionate [facility] [address]-31 50 MCG/ACT INSTILL ONE SPRAY IN EACH NOSTRIL DAILY Ambien [facility] [address]-11 10 mg Orally Once a day November 26, 2014 1 tablet at bedtime Zofran [facility] 19896058751 4 MG Orally 3 times a day prn nausea and vomiting 1 tablet Incruse Ellipta [facility] [address]-86 62.5 MCG/INH Inhalation Once a day December 28, 2015 1 puff Naproxen [facility] [address]-60 500 MG Orally every 12 hrs for headache March 1 tablet as needed Procedures Procedure Coding System Code Date [facility] VISIT ESTABLISHED PATIENT CPT-4 G0467 May 31, 2016 Office Visit, Est Pt., Level 3 CPT-4 38814 May 31, 2016 GLYCATED HEMOGLOBIN TEST CPT-4 17251 May 31, 2016 Vital Signs Date/Time: May 31, 2016 Cardiac Monitoring Heart Rate 72 bpm Weight 327.5 lbs Height 67 in BMI 51.29 Index Blood Pressure Diastolic 98 mmHg Blood Pressure Systolic 192 mmHg Results Name Result Date Reference Range Unit Abnormality Flag A1C (IN HOUSE) ----A1C IN HOUSE 10.4 [id number] 4.3 - 5.6 % ----Lot [id number] ----Exp date [id number] Summary Purpose eClinicalWorks Submission
--- OUTSIDE RECORDS SUMMARY | 2017-09-27 22:43 | XMS REPORT ---
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 Active 559557101 Problem Hypokalemia E87.6 Active 89219718 Problem Encounter for long-term (current) use of other medications V58.69 Active 213619059 Problem Benign prostatic hyperplasia with lower urinary tract symptoms, unspecified morphology N40.1 Active 985153153 Problem Morbid obesity 278.01 Active 586060639 Problem Cough R05 Active 95353087 Problem DM neuro manif type II E11.49 Active 64842374 Problem Dysuria R30.0 Active 38403480 Problem Insomnia, unspecified type G47.00 Active 166038661 Problem Bipolar I disorder, most recent episode (or current) mixed, moderate F31.62 Active 93505850 Problem Persistent disorder of initiating or maintaining sleep 307.42 Active 96020511 Problem Essential hypertension, benign 401.1 Active 8857307 Problem Unspecified disorder of kidney and ureter 593.9 Active 138002257 Problem Leukocytosis D72.829 Active 591215030 Problem Diabetes E11.9 Active 48392906 Problem Reactive airway disease J45.909 Active 494314142307 Problem Chronic pain G89.29 Active 22441732 Problem Headache 784.0 Active 56296457 Problem Lymphocytosis D72.820 Active 59116641 Problem Hyperpotassemia 276.7 Active 92311324 Problem Cervicalgia 723.1 Active 48598974 Problem Diabetes 250.00 Active 94197160 Problem Eustachian tube dysfunction, unspecified laterality H69.80 Active 77613114 Problem Eye exam abnormal R93.8 Active 972468028 Problem Hypokalemia 276.8 Active 12650728 ALLERGIES Substance Reaction Event Type Date Status N.K.D.A. Unknown Non Drug Allergy Aug, Unknown SOCIAL HISTORY No smoking Hx information available PLAN OF CARE VITAL SIGNS Height 67 in 2016-08-30 Weight 358.2 lbs 2016-08-30 Heart Rate 88 bpm 2016-08-30 Respiratory Rate 22 2016-08-30 BMI 56.10 kg/m2 2016-08-30 Blood pressure systolic 160 mmHg 2016-08-30 Blood pressure diastolic 98 mmHg 2016-08-30 MEDICATIONS Medication Instructions Dosage Frequency Start Date End Date Duration Status NovoLog Flexpen 100 UNIT/ML INJECT 30 UNITS SUBCUTANEOUSLY WITH BREAKFAST, 30 UNITS WITH LUNCH AND 40 UNITS WITH EVENING MEAL 90 Active Fluticasone Propionate 50 MCG/ACT INSTILL ONE SPRAY IN EACH NOSTRIL DAILY 30 Active Atorvastatin Calcium 20 MG TAKE ONE TABLET BY MOUTH AT BEDTIME 90 Active Zofran 4 MG Orally 3 times a day prn nausea and vomiting 1 tablet 5 Active Losartan Potassium 50 MG TAKE ONE TABLET BY MOUTH DAILY 90 Active Trintellix 20 MG Orally Once a day 1 tablet 24h Jul, 30 day(s) Active Gabapentin 300 mg 1 capsule by Oral route 2 times per day Apr, Active Metoprolol Succinate ER 50 mg Orally twice a day 1 tablet 12h 90 Active Diabetic Shoes as directed Apr, Active Depakote ER 500 MG take 1 tablet by Oral route 2 times per day Active Naproxen 500 MG Orally every 12 hrs for headache 1 tablet as needed Mar, 30 Active Klonopin 1 MG Orally once a day 1 tablet 24h May, 30 days Active Seroquel 100 MG Orally Once a day 1 tablet 24h Jul, 30 day(s) Active Clopidogrel Bisulfate 75 MG TAKE ONE TABLET BY MOUTH DAILY 90 Active Ambien 10 mg Orally Once a day 1 tablet at bedtime 24h Nov, 30 days Active Ventolin HFA 108 (90 Base) MCG/ACT Inhalation every 4 hrs 2 puffs as needed 4h Dec, 30 days Active Vitamin D3 1,000 unit 2 capsule by Oral route 1 time per day Apr, Active Singulair 10 mg 1 Tablet by Oral route 1 time per day Nov, Active Percocet 10-325 MG Orally 4 times a day 1 tablet as needed 6h Aug, 28 days Active Furosemide 40 MG TAKE ONE TABLET BY MOUTH ONCE DAILY 90 Active Losartan Potassium 100 MG TAKE ONE TABLET BY MOUTH ONCE DAILY (MUST HAVE APPOINTMENT FOR REFILL) Active Abilify 20 MG Orally Once a day 1 tablet 24h Jul, 30 day(s) Active Victoza 18 MG/3ML Subcutaneous Once a day INJECT 1.8 mg daily 24h Active Aspirin 81 mg 1 tablet by Oral route 1 time per day Apr, Active Incruse Ellipta 62.5 MCG/INH INHALE ONE PUFF BY MOUTH ONCE DAILY 30 Active Zetia 10 MG TAKE ONE TABLET BY MOUTH DAILY 90 Active Nexium 40 MG TAKE ONE CAPSULE BY MOUTH ONCE DAILY 90 Days Active Symbicort 80-4.5 MCG/ACT Inhalation Twice a day 2 puffs 12h 30 Active Potassium Chloride Kathi ER 20 MEQ TAKE TWO TABLETS BY MOUTH DAILY 90 Active Gabapentin 300 MG Orally 2 times a day 1 capsule 12h Mar, Active Abilify 30 MG TAKE ONE TABLET BY MOUTH ONCE DAILY 90 Active Metformin HCl 1000 MG TAKE ONE TABLET BY MOUTH TWICE DAILY 90 Active Flomax 0.4 MG Orally Once a day 1 capsule 30 minutes after the same meal each day 24h Aug, 90 Active RESULTS No Results PROCEDURES Procedure Date Ordered Related Diagnosis Body Site [facility] VISIT ESTABLISHED PATIENT Aug 30, 2016 Office Visit, Est Pt., Level 3 Aug 30, 2016 IMMUNIZATIONS No Known Immunizations
--- OUTSIDE RECORDS SUMMARY | 2017-09-27 22:43 | XMS REPORT ---
Author ORSELINE Fuentes Organization [facility] Address [address] [place] [address] Care Team Providers Care Route Deliverer Name Role Phone ROSELINE LUIS Unavailable PROBLEMS Type Condition ICD9-CM Code KZS14-SE Code Onset Dates Condition Status SNOMED Code Problem Chronic pain G89.29 Active 35132714 Problem Reactive airway disease J45.909 Active 356269468352 Problem Leukocytosis D72.829 Active 571556104 Problem Diabetic polyneuropathy associated with type 2 diabetes mellitus E11.42 Active 58415877 Problem Essential hypertension I10 Active 90255027 Problem Insomnia, unspecified type G47.00 Active 606312802 Problem Bipolar I disorder, most recent episode (or current) mixed, moderate F31.62 Active 70629412 Problem Morbid obesity E66.01 Active 529332801 Problem Anxiety F41.9 Active 03345551 Problem Eye exam abnormal R93.8 Active 461563147 Problem Dysuria R30.0 Active 81396613 Problem Chronic lymphocytic leukemia C91.10 Active 41266273 Problem Lymphocytosis D72.820 Active 96304716 Problem Eustachian tube dysfunction, unspecified laterality H69.80 Active 03973263 Problem Benign prostatic hyperplasia with lower urinary tract symptoms, unspecified morphology N40.1 Active 994602708 Problem Cough R05 Active 66630332 Problem DM neuro manif type II E11.49 Active 11907528 Problem Hypokalemia E87.6 Active 13096376 Problem Diabetes E11.9 Active 82993923 ALLERGIES No Information SOCIAL HISTORY Never Assessed PLAN OF CARE Activity Details Follow Up 1 Week Reason:depression VITAL SIGNS MEDICATIONS Unknown Medications RESULTS No Results PROCEDURES Procedure Date Ordered Result Body Site [facility] VISIT MENTAL HEALTH ESTAB PT December 16, 2016 Psychotherapy, patient &/family, 45 minutes, established patient December 16, 2016 IMMUNIZATIONS No Known Immunizations MEDICAL (GENERAL) HISTORY Type Description Date Medical History type II diabetes Medical History coronary artery disease stress test 01/5015 Medical History chronic obstructive pulmonary disease (COPD) Medical History gastroesophageal reflux disease (GERD) Medical History acute renal failure Medical History erectile dysfunction Medical History hyperlipidemia Medical History obesity Medical History skin cancer-basal cell R christian (removed) Medical History Arthritis Medical History degenerative [...] EGD ([place]) 2009 Surgical History colonoscopy 2009 ([facility]), 2013 ([place]) Surgical History heart 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 04/2014 Surgical History carotid US 05/2014 Surgical History resection of skin cancer from Right christian Surgical History Biopsy of Lung Bilateral/Left lung lymph node 09/2016 Surgical History Bone Marrow Biopsy Surgical History port in the right chest wall 12/2016 Hospitalization History [facility] low potassium, low magnesium, chest painina 01/2015 Hospitalization History inability to urinate 09/16/15 Hospitalization History [facility] inpatient mental health early
--- OUTSIDE RECORDS SUMMARY | 2017-09-27 22:43 | XMS REPORT ---
Author Author ALYSE ELLIOTT Organization eClinicalWorks Address Unknown Phone Unavailable Care Team Providers Care Ready To Wear Department Manager Name Role Phone ALYSE ELLIOTT CP Unavailable [...] Coronary atherosclerosis of unspecified type of vessel, [place] or graft 414.00 Active Medications Medication Code System Code Instructions Start Date End Date Status Dosage Klonopin [facility] [address]-73 1 MG Orally once a day Dr. Pederson to sign for Hans May 27, 2015 1 tablet Results No Known Results Summary Purpose eClinicalWorks Submission
--- OUTSIDE RECORDS SUMMARY | 2017-09-27 22:43 | XMS REPORT ---
Author Author NOEMI WASHBURN Organization [facility] Address [address] [place] [address] Care Team Providers Care Tram Operator Name Role Phone NOEMI WASHBURN Unavailable PROBLEMS Type Condition ICD9-CM Code HES80-DG Code Onset Dates Condition Status SNOMED Code Problem Chronic pain G89.29 Active 61720528 Problem Reactive airway disease J45.909 Active 538818054451 Problem Leukocytosis D72.829 Active 030412754 Problem Diabetic polyneuropathy associated with type 2 diabetes mellitus E11.42 Active 71563095 Problem Essential hypertension I10 Active 89345586 Problem Insomnia, unspecified type G47.00 Active 352936151 Problem Bipolar I disorder, most recent episode (or current) mixed, moderate F31.62 Active 71217349 Problem Morbid obesity E66.01 Active 042147050 Problem Anxiety F41.9 Active 41295760 Problem Eye exam abnormal R93.8 Active 528135444 Problem Dysuria R30.0 Active 49254670 Problem Chronic lymphocytic leukemia C91.10 Active 65748602 Problem Lymphocytosis D72.820 Active 17810477 Problem Eustachian tube dysfunction, unspecified laterality H69.80 Active 03351950 Problem Benign prostatic hyperplasia with lower urinary tract symptoms, unspecified morphology N40.1 Active 128349324 Problem Cough R05 Active 05395395 Problem DM neuro manif type II E11.49 Active 97665290 Problem Hypokalemia E87.6 Active 60660094 Problem Diabetes E11.9 Active 92043876 ALLERGIES No Information SOCIAL HISTORY Never Assessed [...] obesity Medical History skin cancer-basal cell R protestant (removed) Medical History Arthritis Medical History degenerative [...] (Left) 2000 Surgical History EGD ([facility]) 2009 Surgical History colonoscopy 2009 ([facility]), 2013 ([place]) Surgical History heart 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 04/2014 Surgical History carotid US 05/2014 Surgical History resection of skin cancer from Right protestant Surgical History Biopsy of Lung Bilateral/Left lung lymph node 09/2016 Surgical History Bone Marrow Biopsy Surgical History port in the right chest wall 12/2016 Hospitalization History [facility] low potassium, low magnesium, chest painina 01/2015 Hospitalization History inability to urinate 09/16/[address] [facility] inpatient mental health early
--- OUTSIDE RECORDS SUMMARY | 2017-09-27 22:44 | XMS REPORT ---
Author Author NOEMI WASHBURN Organization [employer] Address Unknown Phone Unavailable Care Team Providers Care Chemical Radiation Technician Name Role Phone NOEMI WASHBURN CP Unavailable [...] Coronary atherosclerosis of unspecified type of vessel, [place] or graft 414.00 Active Problem Basal cell carcinoma of skin of other and unspecified parts of face 173.31 Active Problem 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 Active Medications No Known Medications Results No Known Results Summary Purpose eClinicalWorks Submission
--- OUTSIDE RECORDS SUMMARY | 2017-09-27 22:44 | XMS REPORT ---
Author Author NOEMI WASHBURN Organization [facility] Address [address] [place] [address] Care Team Providers Care Garage Laborer Name Role Phone NOEMI WASHBURN Unavailable PROBLEMS Type Condition ICD9-CM Code CES56-WO Code Onset Dates Condition Status SNOMED Code Problem Chronic pain G89.29 Active 57569878 Problem Reactive airway disease J45.909 Active 934087912605 Problem Leukocytosis D72.829 Active 045226176 Problem Diabetic polyneuropathy associated with type 2 diabetes mellitus E11.42 Active 52915256 Problem Essential hypertension I10 Active 79342163 Problem Insomnia, unspecified type G47.00 Active 614951225 Problem Bipolar I disorder, most recent episode (or current) mixed, moderate F31.62 Active 73960665 Problem Morbid obesity E66.01 Active 046532992 Problem Anxiety F41.9 Active 43104097 Problem Eye exam abnormal R93.8 Active 178477214 Problem Dysuria R30.0 Active 85440568 Problem Chronic lymphocytic leukemia C91.10 Active 74665114 Problem Lymphocytosis D72.820 Active 12284010 Problem Eustachian tube dysfunction, unspecified laterality H69.80 Active 16685865 Problem Benign prostatic hyperplasia with lower urinary tract symptoms, unspecified morphology N40.1 Active 265231214 Problem Cough R05 Active 69004609 Problem DM neuro manif type II E11.49 Active 68548698 Problem Hypokalemia E87.6 Active 70749337 Problem Diabetes E11.9 Active 93934652 ALLERGIES No Information SOCIAL HISTORY Never Assessed [...] obesity Medical History skin cancer-basal cell R uatsdin (removed) Medical History Arthritis Medical History degenerative [...] (Left) 2000 Surgical History EGD ([facility]) 2009 Surgical History colonoscopy 2009 ([facility]), 2013 ([place]) Surgical History heart 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 04/2014 Surgical History carotid US 05/2014 Surgical History resection of skin cancer from Right uatsdin Surgical History Biopsy of Lung Bilateral/Left lung lymph node 09/2016 Surgical History Bone Marrow Biopsy Surgical History port in the right chest wall 12/2016 Hospitalization History [facility] low potassium, low magnesium, chest painina 01/2015 Hospitalization History inability to urinate 09/16/15
--- OUTSIDE RECORDS SUMMARY | 2017-09-27 22:44 | XMS REPORT ---
Author Author NOEMI WASHBURN [facility] Address [address] [place] [address] Care Team Providers Care Manager Landscape Name Role Phone NOEMI WASHBURN Unavailable PROBLEMS Type Condition ICD9-CM Code HRW56-ZQ Code Onset Dates Condition Status SNOMED Code Problem Chronic pain G89.29 Active 66506344 Problem Reactive airway disease J45.909 Active 010145618330 Problem Leukocytosis D72.829 Active 695098890 Problem Diabetic polyneuropathy associated with type 2 diabetes mellitus E11.42 Active 97895791 Problem Essential hypertension I10 Active 33978321 Problem Insomnia, unspecified type G47.00 Active 728264228 Problem Bipolar I disorder, most recent episode (or current) mixed, moderate F31.62 Active 21134061 Problem Morbid obesity E66.01 Active 140580188 Problem Anxiety F41.9 Active 54730680 Problem Eye exam abnormal R93.8 Active 989501116 Problem Dysuria R30.0 Active 20104463 Problem Chronic lymphocytic leukemia C91.10 Active 09037105 Problem Lymphocytosis D72.820 Active 39350397 Problem Eustachian tube dysfunction, unspecified laterality H69.80 Active 46381245 Problem Benign prostatic hyperplasia with lower urinary tract symptoms, unspecified morphology N40.1 Active 263449700 Problem Cough R05 Active 90762017 Problem DM neuro manif type II E11.49 Active 46285975 Problem Hypokalemia E87.6 Active 96112499 Problem Diabetes E11.9 Active 62707648 ALLERGIES No Information SOCIAL HISTORY Never Assessed PLAN OF CARE VITAL SIGNS Height 67 in 2016-11-24 Blood pressure systolic 178 mmHg 2016-11-24 Blood pressure diastolic 86 mmHg 2016-11-24 MEDICATIONS Unknown Medications RESULTS No Results PROCEDURES [...] 2009 Surgical History colonoscopy 2009 ([facility]), 2013 ([place]) Surgical History heart cath: CAD w/ PTCA [...] History inability to urinate 09/16/15 Hospitalization History [facility] mental health early
--- OUTSIDE RECORDS SUMMARY | 2017-09-27 22:44 | XMS REPORT ---
Author NOEMI Babb Organization [employer] Address Unknown Phone Unavailable Care Team Providers Care Mobile Developer Name Role Phone NOEMI WASHBURN CP Unavailable Allergies No Known Allergies Problems Problem Type Condition Code Onset Dates Condition Status Problem Basal cell carcinoma of skin of other and unspecified parts of face 173.31 Active Problem Lumbago 724.2 Active Problem Coronary atherosclerosis of unspecified type of vessel, [place] or graft 414.00 Active Problem Hypokalemia E87.6 [...] Instructions Start Date End Date Status Dosage Ventolin HFA [facility] [address]-23 108 (90 Base) MCG/ACT Inhalation every 4 hrs December 25, 2015 2 puffs as needed Lantus [facility] [address]-79 100 UNIT/ML Subcutaneous 2 times a day Inject 100 units Fluticasone Propionate [facility] [address]-19 50 MCG/ACT INSTILL ONE SPRAY IN EACH NOSTRIL DAILY Results No Known Results Summary Purpose [employer] Submission
--- OUTSIDE RECORDS SUMMARY | 2017-09-27 22:46 | XMS REPORT ---
Author Author ALYSE ELLIOTT [facility] Address Unknown Phone Unavailable Care Team Providers Care Slurry Man Name Role Phone ALYSE ELLIOTT CP Unavailable Allergies, Adverse Reactions, Alerts Substance Reaction Event Type N.K.D.A. Info Not Available Non Drug Allergy Problems Problem Type Condition ICD-9 Code Onset [...] specified as with psychotic behavior 296.34 Active Assessment Major depressive disorder, recurrent episode, severe, specified as with psychotic behavior 296.34 Active Assessment Bipolar I disorder, most recent episode (or current) mixed, moderate 296.62 Active Problem Lumbago 724.2 Active Problem Bipolar I disorder, most recent episode (or current) mixed, moderate 296.62 Active Problem Other and unspecified bipolar disorders 296.89 Active Problem Coronary atherosclerosis of unspecified type of vessel, [place] or graft 414.00 Active Problem Basal cell carcinoma of skin of other and unspecified parts of face 173.31 Active Problem 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 Active Medications Medication Code System Code Instructions Start Date End Date Status Dosage Lantus [facility] [address]-20 100 UNIT/ML inject 100 Units by Subcutaneous route 2 times per day Symbicort [facility] 81664042998 80-4.5 MCG/ACT Inhalation Twice a day 2 puffs Ambien [facility] [address]-61 10 MG Pt needs an appt for further refills November 26, 2014 1 tablet by Oral route 1 time per day at hs Nexium [facility] 35476676966 40 MG TAKE ONE CAPSULE BY MOUTH DAILY Diabetic Shoes ND 0 Apr 30, 2015 as directed Gabapentin [facility] [address]-24 300 mg May 22, 2014 1 capsule by Oral route 2 times per day Lipitor [facility] [address]-49 40 mg Nov 08, 2013 1 tablet by Oral route 1 time per day Percocet [facility] [address]-09 10-325 MG November 26, 2014 take 1 tablet by Oral route as needed 4 times per day PRN Metformin HCl [facility] 45743756288 1000 MG TAKE ONE TABLET BY MOUTH TWICE DAILY Klonopin [facility] [address]-01 1 MG Orally once a day May 27, 2015 1 tablet Vitamin D3 [facility] [address]88-[address]13 1,000 unit May 24, 2012 2 capsule by Oral route 1 time per day NovoLog Flexpen [facility] [address]-49 100 UNIT/ML Subcutaneous 3 times a day INJECT 40 UNITS SUBCUTANEOUSLY WITH EVENING MEAL AND 30 UNITS WITH BREAKFAST AND LUNCH Aspirin [facility] [address]-85 81 mg May 22, 2014 1 tablet by Oral route 1 time per day Singulair [facility] [address]-04 10 mg December 17, 2014 1 Tablet by Oral route 1 time per day Abilify [facility] [address]-66 30 MG Orally Once a day March 25, 2015 1 tablet Fluticasone Propionate [facility] 23377515241 50 MCG/ACT INSTILL ONE SPRAY IN EACH NOSTRIL DAILY morphine ND 0 15 mg December 17, 2014 1 Tablet by Oral route 1 time per day at HS ProAir HFA [facility] 98991907567 108 (90 Base) MCG/ACT INHALE TWO PUFFS BY MOUTH EVERY 4 TO 6 HOURS NEEDED FOR SHORTNESS OF BREATH/COUGH Seroquel [facility] 71610836535 50 MG TAKE ONE TABLET BY MOUTH THREE TIMES DAILY Victoza [facility] [address]-48 18 MG/3ML Subcutaneous Once a day 0.2 ml Depakote ER [facility] 25900824080 500 MG take 1 tablet by Oral route 2 times per day Brintellix [facility] [address]-09 10 MG Orally Once a day April 22, 2015 1 tablet Fetzima [facility] 35674397362 40 MG TAKE ONE CAPSULE BY MOUTH DAILY Plavix [facility] 10268614635 75 MG 1 tablet by Oral route 1 time per day Atorvastatin Calcium [facility] [address]-88 20 MG TAKE ONE TABLET BY MOUTH AT BEDTIME Zetia [facility] 50409897278 10 MG TAKE ONE TABLET BY MOUTH DAILY Potassium Chloride Kathi ER [facility] [address]-86 20 MEQ Orally Once a day TAKE TWO TABLETS BY MOUTH DAILY Furosemide [facility] 07374804551 40 MG 1 tablet by Oral route 1 time per day Diabetic Shoes [facility] 0 0 1 pair of shoes Alan to sign in Marquita's absense April 20, 2015 as directed Losartan Potassium [facility] [address]-79 50 MG TAKE ONE TABLET BY MOUTH DAILY Metoprolol Succinate ER [facility] 19701807558 50 MG Orally Once a day 1 tablet metformin [facility] [address]-88 1,000 mg November 25, 2014 take 1 tablet by Oral route 2 times per day Must make and attend f/u appt for refills Procedures Procedure Coding System Code Date Office Visit, Est Pt., Level 3 CPT-4 84800 May 27, 2015 [facility] VISIT ESTABLISHED PATIENT CPT-4 G0467 May 27, 2015 Vital Signs Date/Time: May 27, 2015 Temperature 98.0 F Weight 337.4 lbs Height 67 in BMI 52.84 Index Blood Pressure Diastolic 90 mmHg Blood Pressure Systolic 130 mmHg Cardiac Monitoring Heart Rate 76 bpm Results No Known Results Summary Purpose [employer] Submission
--- OUTSIDE RECORDS SUMMARY | 2017-09-27 22:46 | XMS REPORT ---
Author NOEMI Babb Organization [employer] Address Unknown Phone Unavailable Care Team Providers Care Director Name Role Phone NOEMI WASHBURN CP Unavailable Allergies No Known Allergies Problems Problem Type Condition Code Onset Dates Condition Status Assessment Diabetes E11.9 Active Problem Basal cell carcinoma of skin of other and unspecified parts of face 173.31 Active Problem Lumbago 724.2 Active Problem Coronary atherosclerosis of unspecified type of vessel, [place] or graft 414.00 Active Problem Eustachian tube [...] Date End Date Status Dosage Lantus [facility] [address]-89 100 UNIT/ML Subcutaneous 2 times a day Inject 70 units Results No Known Results Summary Purpose [employer] Submission
--- OUTSIDE RECORDS SUMMARY | 2017-09-27 22:46 | XMS REPORT ---
Author NOEMI Babb Organization [employer] Address Unknown Phone Unavailable Care Team Providers Care Surgical Training Specialist Name Role Phone NOEMI WASHBURN CP Unavailable Allergies No Known Allergies Problems Problem Type Condition Code Onset Dates Condition Status Problem Basal cell carcinoma of skin of other and unspecified parts of face 173.31 Active Problem Lumbago 724.2 Active Problem Coronary atherosclerosis of unspecified type of vessel, [place] or graft 414.00 Active Problem Eustachian tube [...] Start Date End Date Status Dosage Percocet [facility] [address]-45 10-325 MG Orally 4 times a day November 26, 2014 1 tablet as needed Results No Known Results Summary Purpose [employer] Submission
--- OUTSIDE RECORDS SUMMARY | 2017-09-27 22:48 | XMS REPORT ---
Author NOEMI Babb Organization [employer] Address Unknown Phone Unavailable Care Team Providers Care Multiple Spindle Screw Machine Operator Name Role Phone NOEMI WASHBURN CP Unavailable Allergies No Known Allergies Problems Problem Type Condition Code Onset Dates Condition Status Assessment Chronic pain G89.29 Active Problem Basal cell carcinoma of skin of other and unspecified parts of face 173.31 Active Problem Lumbago 724.2 Active Problem Coronary atherosclerosis of unspecified type of vessel, [place] or graft 414.00 Active Problem Hypokalemia E87.6 [...] Start Date End Date Status Dosage Percocet [facility] [address]-01 10-325 MG Orally 4 times a day November 26, 2014 1 tablet as needed Results No Known Results Summary Purpose [employer] Submission
--- OUTSIDE RECORDS SUMMARY | 2017-09-27 22:48 | XMS REPORT ---
Author Author NOEMI WASHBURN Organization [employer] Address Unknown Phone Unavailable Care Team Providers Care Door Attendant Name Role Phone NOEMI WASHBURN CP Unavailable [...] Coronary atherosclerosis of unspecified type of vessel, [place] or graft 414.00 Active Medications Medication Code System Code Instructions Start Date End Date Status Dosage morphine NDC 0 15 mg December 17, 2014 1 Tablet by Oral route 1 time per day at Percocet [facility] [address]-12 10-325 MG November 26, 2014 take 1 tablet by Oral route as needed 4 times per day PRN Results No Known Results Summary Purpose [employer] Submission
--- OUTSIDE RECORDS SUMMARY | 2017-09-27 22:48 | XMS REPORT ---
Author ROSELINE Fuentes Organization [facility] Address [address] [place] [address] Care Team Providers Care Theatrical Dresser Name Role Phone ROSELINE LUIS Unavailable PROBLEMS Type Condition ICD9-CM Code DHD30-ZM Code Onset Dates Condition Status SNOMED Code Problem Chronic pain G89.29 Active 82678489 Problem Reactive airway disease J45.909 Active 077515775290 Problem Leukocytosis D72.829 Active 371957067 Problem Diabetic polyneuropathy associated with type 2 diabetes mellitus E11.42 Active 99017552 Problem Essential hypertension I10 Active 40340556 Problem Insomnia, unspecified type G47.00 Active 524742514 Problem Bipolar I disorder, most recent episode (or current) mixed, moderate F31.62 Active 95661321 Problem Morbid obesity E66.01 Active 122696905 Problem Anxiety F41.9 Active 03193519 Problem Eye exam abnormal R93.8 Active 729701228 Problem Dysuria R30.0 Active 95830513 Problem Chronic lymphocytic leukemia C91.10 Active 28779478 Problem Lymphocytosis D72.820 Active 95995174 Problem Eustachian tube dysfunction, unspecified laterality H69.80 Active 71043141 Problem Benign prostatic hyperplasia with lower urinary tract symptoms, unspecified morphology N40.1 Active 223351879 Problem Cough R05 Active 01048618 Problem DM neuro manif type II E11.49 Active 14723672 Problem Hypokalemia E87.6 Active 26996725 Problem Diabetes E11.9 Active 99501752 ALLERGIES No Information SOCIAL HISTORY Never Assessed PLAN OF CARE Activity Details Follow Up 1 Week Reason:depression VITAL SIGNS MEDICATIONS Unknown Medications RESULTS No Results PROCEDURES Procedure Date Ordered Result Body [facility] ESTAB PT December 08, 2016 Psychotherapy, patient &/family, 30 minutes, established patient December 08, 2016 IMMUNIZATIONS No Known Immunizations MEDICAL (GENERAL) HISTORY Type Description Date Medical History type II diabetes Medical History coronary artery disease stress test 01/5015 Medical History chronic obstructive pulmonary disease (COPD) Medical History gastroesophageal reflux disease (GERD) Medical History acute renal failure Medical History erectile dysfunction Medical History hyperlipidemia Medical History obesity Medical History skin cancer-basal cell R yarsanism (removed) Medical History Arthritis Medical History degenerative [...] EGD ([facility]) 2009 Surgical History colonoscopy 2009 ([facility]), 2013 ([place]) Surgical History heart 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 04/2014 Surgical History carotid US 05/2014 Surgical History resection of skin cancer from Right yarsanism Surgical History Biopsy of Lung Bilateral/Left lung lymph node 09/2016 Surgical History Bone Marrow Biopsy Surgical History port in the right chest wall 12/2016 Hospitalization History [facility] low potassium, low magnesium, chest painina 01/2015 Hospitalization History inability to urinate 09/16/15 Hospitalization History [facility] inpatient mental health early
--- OUTSIDE RECORDS SUMMARY | 2017-09-27 22:49 | XMS REPORT ---
Author Author NOEMI WASHBURN Organization [facility] Address [address] [place] [address] Care Team Providers Care Shearing Machine Tender Name Role Phone NOEMI WASHBURN Unavailable PROBLEMS Type Condition ICD9-CM Code CXF80-XB Code Onset Dates Condition Status SNOMED Code Problem Leukocytosis D72.829 Active 380044823 Problem Bipolar I disorder, most recent episode (or current) mixed, moderate F31.62 Active 16565176 Problem Reactive airway disease J45.909 Active 774710109756 Problem Polyneuropathy associated with underlying disease G63 Active 315953257 Problem Chronic lymphocytic leukemia C91.10 Active 67584031 Problem Diabetic polyneuropathy associated with type 2 diabetes mellitus E11.42 Active 30803279 Problem Anxiety F41.9 Active 90199370 Problem Insomnia, unspecified type G47.00 Active 040970114 Problem Essential hypertension I10 Active 30062862 Problem Morbid obesity E66.01 Active 975171428 Problem Dysuria R30.0 Active 80079863 Problem Cough R05 Active 56054096 Problem Lymphocytosis D72.820 Active 07838164 Problem Eye exam abnormal R93.8 Active 028044256 Problem Benign prostatic hyperplasia with lower urinary tract symptoms, unspecified morphology N40.1 Active 569550678 Problem DM neuro manif type II E11.49 Active 28129882 Problem Hypokalemia E87.6 Active 88299051 Problem Diabetes E11.9 Active 68197332 Problem Eustachian tube dysfunction, unspecified laterality H69.80 Active 85238624 Problem Chronic pain G89.29 Active 94164075 ALLERGIES No Information SOCIAL HISTORY Never Assessed [...] obesity Medical History skin cancer-basal cell R oriental orthodox (removed) Medical History Arthritis Medical History degenerative [...] (Left) 2000 Surgical History EGD ([facility]) 2009 Surgical History colonoscopy 2009 ([facility]), 2013 ([place]) Surgical History heart 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 04/2014 Surgical History carotid US 05/2014 Surgical History resection of skin cancer from Right oriental orthodox Surgical History Biopsy of Lung Bilateral/Left lung lymph node 09/2016 Surgical History Bone Marrow Biopsy Surgical History port in the right chest wall 12/2016 Hospitalization History [facility] low potassium, low magnesium, chest painina 01/2015 Hospitalization History inability to urinate 09/16/15 Hospitalization History [facility] inpatient mental health early
--- OUTSIDE RECORDS SUMMARY | 2017-09-27 22:49 | XMS REPORT ---
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
--- OUTSIDE RECORDS SUMMARY | 2017-09-27 22:50 | XMS REPORT ---
Author Author ROSELINE LUIS Organization [facility] Address [address] [place] [address] Care Team Providers Care Maintenance Mechanic Telephone Name Role Phone TOBYTESSROSELINE Unavailable PROBLEMS Type Condition ICD9-CM Code AHD37-IL Code Onset Dates Condition Status SNOMED Code Assessment Bipolar I disorder, most recent episode (or current) mixed, moderate F31.62 May, Active 899090824 Problem Basal cell carcinoma of skin of other and unspecified parts of face 173.31 Active 595537962 Problem Lumbago 724.2 Active 018219211 Problem Coronary atherosclerosis of unspecified type of vessel, [place] or graft 414.00 Active 62708377 Problem 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 Active 508381778 Problem Hypokalemia E87.6 Active 51058333 Problem Encounter for long-term (current) use of other medications V58.69 Active 662141004 Problem Benign prostatic hyperplasia with lower urinary tract symptoms, unspecified morphology N40.1 Active 296950350 Problem Morbid obesity 278.01 Active 236856265 Problem Cough R05 Active 37191409 Problem DM neuro manif type II E11.49 Active 46747185 Problem Dysuria R30.0 Active 07668644 Problem Insomnia, unspecified type G47.00 Active 868636119 Problem Bipolar I disorder, most recent episode (or current) mixed, moderate F31.62 Active 71120752 Problem Persistent disorder of initiating or maintaining sleep 307.42 Active 39207713 Problem Essential hypertension, benign 401.1 Active 0981647 Problem Unspecified disorder of kidney and ureter 593.9 Active 875004150 Problem Leukocytosis D72.829 Active 809707988 Problem Diabetes E11.9 Active 93208255 Problem Reactive airway disease J45.909 Active 190001144775 Problem Chronic pain G89.29 Active 02502096 Problem Headache 784.0 Active 60999029 Problem Lymphocytosis D72.820 Active 25431959 Problem Hyperpotassemia 276.7 Active 26626505 Problem Cervicalgia 723.1 Active 77825203 Problem Diabetes 250.00 Active 52927339 Problem Eustachian tube dysfunction, unspecified laterality H69.80 Active 04160356 Problem Eye exam abnormal R93.8 Active 506508118 Problem Hypokalemia 276.8 Active 63102699 ALLERGIES Unknown Allergies SOCIAL HISTORY No smoking Hx information available PLAN OF CARE VITAL SIGNS MEDICATIONS Unknown Medications RESULTS No Results PROCEDURES Procedure Date Ordered Related Diagnosis Body Site [facility] VISIT MENTAL HEALTH ESTAB PT Jun 16, 2016 Psychotherapy, patient &/family, 45 minutes, established patient Jun 16, 2016 IMMUNIZATIONS No Known Immunizations
--- OUTSIDE RECORDS SUMMARY | 2017-09-27 22:50 | XMS REPORT ---
Author Author ALYSE ELLIOTT Organization [employer] Address Unknown Phone Unavailable Care Team Providers Care Torch Solderer Name Role Phone ALYSE ELLIOTT CP Unavailable [...] Coronary atherosclerosis of unspecified type of vessel, [place] or graft 414.00 Active Medications Medication Code System Code Instructions Start Date End Date Status Dosage Klonopin [facility] [address]-36 1 MG Orally once a day Dr. Pederson to sign for Hans May 27, 2015 1 tablet Results No Known Results Summary Purpose [employer] Submission
--- OUTSIDE RECORDS SUMMARY | 2017-09-27 22:50 | XMS REPORT ---
Author Author NOEMI WASHBURN Organization [facility] Address [address] [place] [address] Care Team Providers Care Coremaking Supervisor Name Role Phone NOEMI WASHBURN Unavailable PROBLEMS Type Condition ICD9-CM Code WRR00-RN Code Onset Dates Condition Status SNOMED Code Problem Leukocytosis D72.829 Active 517207217 Problem Bipolar I disorder, most recent episode (or current) mixed, moderate F31.62 Active 56765563 Problem Reactive airway disease J45.909 Active 068357723938 Problem Polyneuropathy associated with underlying disease G63 Active 827554527 Problem Chronic lymphocytic leukemia C91.10 Active 87804100 Problem Diabetic polyneuropathy associated with type 2 diabetes mellitus E11.42 Active 01406151 Problem Anxiety F41.9 Active 87272368 Problem Insomnia, unspecified type G47.00 Active 137828817 Problem Essential hypertension I10 Active 53277274 Problem Morbid obesity E66.01 Active 270628153 Problem Dysuria R30.0 Active 52122687 Problem Cough R05 Active 86333823 Problem Lymphocytosis D72.820 Active 63934009 Problem Eye exam abnormal R93.8 Active 538134055 Problem Benign prostatic hyperplasia with lower urinary tract symptoms, unspecified morphology N40.1 Active 076421227 Problem DM neuro manif type II E11.49 Active 93871075 Problem Hypokalemia E87.6 Active 16128738 Problem Diabetes E11.9 Active 52673670 Problem Eustachian tube dysfunction, unspecified laterality H69.80 Active 87464731 Problem Chronic pain G89.29 Active 80289274 ALLERGIES No Information SOCIAL HISTORY Never Assessed PLAN OF CARE VITAL SIGNS MEDICATIONS Medication Instructions Dosage Frequency Start Date End Date Duration Status Percocet 10-325 MG Orally 4 times a day 1 tablet as needed 6h January, 28 days Active RESULTS No Results PROCEDURES [...] obesity Medical History skin cancer-basal cell R yazdanism (removed) Medical History Arthritis Medical History degenerative [...] History resection of skin cancer from Right yazdanism Surgical History Biopsy of Lung Bilateral/Left lung lymph node 09/2016 Surgical History Bone Marrow Biopsy Surgical History port in the right chest wall 12/2016 Hospitalization History [facility] low potassium, low magnesium, chest painina 01/2015 Hospitalization History inability to urinate 09/16/15 Hospitalization History [facility]
--- OUTSIDE RECORDS SUMMARY | 2017-09-27 22:50 | XMS REPORT ---
Author Author NOEMI WASHBURN Organization [facility] Address [address] [place] [address] Care Team Providers Care Senior Boiler Operator Name Role Phone NOEMI WASHBURN Unavailable PROBLEMS Type Condition ICD9-CM Code PYP99-OS Code Onset Dates Condition Status SNOMED Code Problem Chronic pain G89.29 Active 33740622 Problem Diabetes E11.9 Active 47957178 Problem Leukocytosis D72.829 Active 818511831 Problem Essential hypertension I10 Active 58040863 Problem Morbid obesity E66.01 Active 804684894 Problem Bipolar I disorder, most recent episode (or current) mixed, moderate F31.62 Active 11739669 Problem Reactive airway disease J45.909 Active 292106612121 Problem Anxiety F41.9 Active 99609863 Problem Insomnia, unspecified type G47.00 Active 469896766 Problem Eye exam abnormal R93.8 Active 521253658 Problem Lymphocytosis D72.820 Active 22110810 Problem Chronic lymphocytic leukemia C91.10 Active 53341264 Problem Cough R05 Active 95757657 Problem Hypokalemia E87.6 Active 59136084 Problem Eustachian tube dysfunction, unspecified laterality H69.80 Active 49074067 Problem Benign prostatic hyperplasia with lower urinary tract symptoms, unspecified morphology N40.1 Active 352197226 Problem Dysuria R30.0 Active 82128210 Problem DM neuro manif type II E11.49 Active 77638435 ALLERGIES Unknown Allergies SOCIAL HISTORY No smoking Hx information available PLAN OF CARE VITAL SIGNS MEDICATIONS Medication Instructions Dosage Frequency Start Date End Date Duration Status Percocet 10-325 MG Orally 4 times a day 1 tablet as needed 6h Sep, 28 days Active RESULTS No Results PROCEDURES No Known procedures IMMUNIZATIONS No Known Immunizations
--- OUTSIDE RECORDS SUMMARY | 2017-09-27 22:51 | XMS REPORT ---
Author Author NOEMI WASHBURN Organization [facility] Address [address] [place] [address] Care Team Providers Care Linseed Oil Temperer Name Role Phone NOEMI WASHBURN Unavailable PROBLEMS Type Condition ICD9-CM Code YBC19-AC Code Onset Dates Condition Status SNOMED Code Problem Diabetes E11.9 Active 07760570 Problem Chronic pain G89.29 Active 63410436 Problem Leukocytosis D72.829 Active 876981013 Problem Essential hypertension I10 Active 78516840 Problem Morbid obesity E66.01 Active 928173373 Problem Bipolar I disorder, most recent episode (or current) mixed, moderate F31.62 Active 10100308 Problem Reactive airway disease J45.909 Active 293838760859 Problem Anxiety F41.9 Active 12105204 Problem Insomnia, unspecified type G47.00 Active 381520024 Problem Eye exam abnormal R93.8 Active 213553586 Problem Lymphocytosis D72.820 Active 05557476 Problem Chronic lymphocytic leukemia C91.10 Active 68675798 Problem Benign prostatic hyperplasia with lower urinary tract symptoms, unspecified morphology N40.1 Active 984019250 Problem Cough R05 Active 45587230 Problem Eustachian tube dysfunction, unspecified laterality H69.80 Active 32002588 Problem Dysuria R30.0 Active 41052261 Problem Hypokalemia E87.6 Active 94009350 Problem DM neuro manif type II E11.49 Active 99049568 ALLERGIES Unknown Allergies SOCIAL HISTORY No smoking Hx information available PLAN OF CARE VITAL SIGNS MEDICATIONS Medication Instructions Dosage Frequency Start Date End Date Duration Status Percocet 10-325 MG Orally 4 times a day 1 tablet as needed 6h Sep, Sep, 28 days Active RESULTS No Results PROCEDURES No Known procedures IMMUNIZATIONS No Known Immunizations
--- OUTSIDE RECORDS SUMMARY | 2017-09-27 22:53 | XMS REPORT ---
Author NOEMI Babb Organization [employer] Address Unknown Phone Unavailable Care Team Providers Care Manager Labor Delivery Name Role Phone NOEMI WASHBURN CP Unavailable Allergies No Known Allergies Problems Problem Type Condition Code Onset Dates Condition Status Problem Basal cell carcinoma of skin of other and unspecified parts of face 173.31 Active Problem Lumbago 724.2 Active Problem Coronary atherosclerosis of unspecified type of vessel, [place] or graft 414.00 Active Problem Eustachian tube [...] abnormal R93.8 Active Medications No Known Medications Results No Known Results Summary Purpose [employer] Submission
--- OUTSIDE RECORDS SUMMARY | 2017-09-27 22:53 | XMS REPORT ---
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 Pedreson to sign for Hans May 27, 2015 1 tablet Ambien [facility] [address]-18 10 MG November 26, 2014 1 tablet by Oral route 1 time per day at hs Lipitor [facility] [address]-03 40 mg Nov 08, 2013 1 tablet by Oral route 1 time per day Flomax [facility] [address]-36 0.4 MG Orally Once a day Sep 17, 2015 1 capsule 30 minutes after the same meal each day Keflex [facility] [address]-38 500 MG Orally 3 times a day Sep 17, 2015 Sep 24, 2015 1 capsule Seroquel [facility] 60794749906 50 MG TAKE ONE TABLET BY MOUTH THREE TIMES DAILY Abilify [facility] 44318460502 30 MG TAKE ONE TABLET BY MOUTH ONCE DAILY Fluticasone Propionate [facility] 53388621536 50 MCG/ACT INSTILL ONE SPRAY IN EACH NOSTRIL DAILY Diabetic Shoes [facility] 0 Apr 30, 2015 as directed Vitamin D3 [facility] 2001 97050-37242 1,000 unit May 24, 2012 2 capsule by Oral route 1 time per day Singulair [facility] [address]-07 10 mg December 17, 2014 1 Tablet by Oral route 1 time per day Aspirin [facility] [address]-27 81 mg May 22, 2014 1 tablet by Oral route 1 time per day Lantus [facility] 91370795720 100 UNIT/ML INJECT 100 UNITS SUBCUTANEOUSLY TWICE DAILY Fetzima [facility] 91007159003 40 MG TAKE ONE CAPSULE BY MOUTH DAILY Depakote ER [facility] 57675857505 500 MG take 1 tablet by Oral route 2 times per day Victoza [facility] 89219470279 18 MG/3ML INJECT 0.6 MG SUBCUTANEOUSLY DAILY FOR 3 DAYS THEN INCREASE TO 1.2 MG DAILY THEREAFTER Potassium Chloride Kathi ER [facility] 09566881995 20 MEQ TAKE TWO TABLETS BY MOUTH DAILY Furosemide [facility] 68161946233 40 MG TAKE ONE TABLET BY MOUTH DAILY Gabapentin [facility] [address]-72 300 mg May 22, 2014 1 capsule by Oral route 2 times per day Losartan Potassium [facility] 72248767105 50 MG TAKE ONE TABLET BY MOUTH DAILY Brintellix [facility] [address]-87 10 MG Orally Once a day April 22, 2015 1 tablet Plavix [facility] [address]-49 75 MG 1 tablet by Oral route 1 time per day ProAir HFA [facility] 81112829480 108 (90 Base) MCG/ACT INHALE TWO PUFFS BY MOUTH EVERY 4 TO 6 HOURS NEEDED FOR SHORTNESS OF BREATH/COUGH Atorvastatin Calcium [facility] [address]-66 20 MG TAKE ONE TABLET BY MOUTH AT BEDTIME Spiriva HandiHaler [facility] 80475954536 18 MCG INHALE CONTENTS OF ONE CAPSULE BY MOUTH ONCE DAILY (TWO INHALATIONS PER ONE CAPSULE) Metformin HCl [facility] 57707843549 1000 MG TAKE ONE TABLET BY MOUTH TWICE DAILY Metoprolol Succinate ER [facility] 78146283502 50 MG Orally Once a day 1 tablet Zetia [facility] [address]-21 10 MG TAKE ONE TABLET BY MOUTH DAILY Nexium [facility] [address]-77 40 MG TAKE ONE CAPSULE BY MOUTH DAILY Clopidogrel Bisulfate [facility] 70146708482 75 MG TAKE ONE TABLET BY MOUTH DAILY Diabetic Shoes [place] 0 0 1 pair of shoes Alan to sign in Marquita's absense April 20, 2015 as directed Symbicort [facility] 93473201846 80-4.5 MCG/ACT Inhalation Twice a day 2 puffs NovoLog Flexpen [facility] [address]-30 100 UNIT/ML Subcutaneous 3 times a day INJECT 40 UNITS SUBCUTANEOUSLY WITH EVENING MEAL AND 30 UNITS WITH BREAKFAST AND LUNCH metformin [facility] [address]-86 1,000 mg November 25, 2014 take 1 tablet by Oral route 2 times per day Must make and attend f/u appt for refills Procedures Procedure Coding System Code Date Office Visit, Est Pt., Level 3 CPT-4 27832 Sep 17, 2015 [facility] VISIT ESTABLISHED PATIENT CPT-4 G0467 Sep 17, 2015 Vital Signs Date/Time: Sep 17, 2015 Temperature 98.1 F Weight 330.3 lbs Height 67 in BMI 51.73 Index Blood Pressure Diastolic 110 mmHg Blood Pressure Systolic 170 mmHg Cardiac Monitoring Heart Rate 80 bpm Results No Known Results Summary Purpose [employer] Submission
--- OUTSIDE RECORDS SUMMARY | 2017-09-27 22:53 | XMS REPORT ---
Author Author NOEMI WASHBURN Organization [employer] Address Unknown Phone Unavailable Care Team Providers Care Chef Instructor Name Role Phone NOEMI WASHBURN CP Unavailable [...] Coronary atherosclerosis of unspecified type of vessel, [place] or graft 414.00 Active Medications Medication Code System Code Instructions Start Date End Date Status Dosage Percocet NDC [address]-00 10-325 MG November 26, 2014 take 1 tablet by Oral route as needed 4 times per day PRN morphine NDC 0 15 mg December 17, 2014 1 Tablet by Oral route 1 time per day at HS Results No Known Results Summary Purpose [employer] Submission
--- OUTSIDE RECORDS SUMMARY | 2017-09-27 22:54 | XMS REPORT ---
Author NOEMI Babb Organization [employer] Address Unknown Phone Unavailable Care Team Providers Care County Attorney Name Role Phone NOEMI WASHBURN CP Unavailable Allergies No Known Allergies Problems Problem Type Condition Code Onset Dates Condition Status Problem Basal cell carcinoma of skin of other and unspecified parts of face 173.31 Active Problem Lumbago 724.2 Active Problem Coronary atherosclerosis of unspecified type of vessel, [place] or graft 414.00 Active Problem Hypokalemia E87.6 [...] Start Date End Date Status Dosage Lantus [facility] [address]-09 100 UNIT/ML Subcutaneous 2 times a day Inject 100 units Results No Known Results Summary Purpose [employer] Submission
[2017-09-27 23:03] VITALS: BP 172/71
[2017-09-27] MEDS ORDERED: NS W/KCL 20 MEQ/L 1,000 ML IV SCH (23:45)
[2017-09-27] MEDS ORDERED: oxyCODONE/APAP 10/325MG (PERCOCET 10) TABLET PO PRN (23:45)
[2017-09-27] MEDS ORDERED: DIAZEPAM 5 MG (VALIUM) TABLET PO PRN (23:45)
[2017-09-27] MEDS ORDERED: GENTAMICIN 100 MG/50 ML IV SCH (23:47)
[2017-09-28] MEDS ORDERED: RT-ALBUTEROL/IPRATROPIUM 3 ML (DUONEB) VIAL INH PRN (00:30)
[2017-09-28] MEDS: CEFEPIME INJECTION 2,000 MG in NS (IVPB) 50 ML IV SCH ×2 (01:03→13:21)
[2017-09-28] MEDS: AZITHROMYCIN INJECTION 500 MG in NS (IVPB) 250 ML IV SCH (01:18)
[2017-09-28] MEDS: RT-ALBUTEROL/IPRATROPIUM 3 ML (DUONEB) VIAL INH SCH ×6 (01:19→21:22)
[2017-09-28] MEDS ORDERED: GENTAMICIN 40 MG/ML 2 ML INJ SDV ONE (01:31)
[2017-09-28] MEDS ORDERED: NS (IVPB) 50 ML ONE (01:31)
[2017-09-28 04:16] VITALS: BP 160/70
[2017-09-28] MEDS: inSUlin (REGULAR) HUMAN 1 UNIT/0.01 ML (CHARGE PER UNIT) SC SCH ×4 (06:00→20:57)
[2017-09-28 06:11] LABS: BASOPHILS % (AUTO) 0 % (0-10); EOSINOPHILS % (AUTO) 0 % (0-10); HEMATOCRIT 26 % (40-54); HEMOGLOBIN 8.2 G/DL (13.3-17.7); LYMPHOCYTES # (AUTO) 2.4 X 10^3 (1.0-4.0); LYMPHOCYTES % (AUTO) 25 % (12-44); MEAN CORPUSCULAR HEMOGLOBIN 28 PG (25-34); MEAN CORPUSCULAR HGB CONC 32 G/DL (32-36); MEAN CORPUSCULAR VOLUME 88 FL (80-99); MEAN PLATELET VOLUME 11.2 FL (7.4-10.4); MONOCYTES # (AUTO) 1.2 X 10^3 (0.0-1.0); MONOCYTES % (AUTO) 12 % (0-12); NEUTROPHILS # (AUTO) 5.9 X 10^3 (1.8-7.8); NEUTROPHILS % (AUTO) 62 % (42-75); PLATELET COUNT 187 10^3/uL (130-400); RED BLOOD COUNT 2.95 10^6/uL (4.35-5.85); RED CELL DISTRIBUTION WIDTH 15.5 % (10.0-14.5); WHITE BLOOD COUNT 9.5 10^3/uL (4.3-11.0)
[2017-09-28 06:37] LABS: ALANINE AMINOTRANSFERASE 13 U/L (0-55); ALBUMIN 3.2 GM/DL (3.2-4.5); ALKALINE PHOSPHATASE 68 U/L (40-136); BILIRUBIN,TOTAL 0.5 MG/DL (0.1-1.0); BUN/CREATININE RATIO 10; CALCIUM 7.5 MG/DL (8.5-10.1); CARBON DIOXIDE 26 MMOL/L (21-32); CHLORIDE 108 MMOL/L (98-107); CREATININE SERUM 0.71 MG/DL (0.60-1.30); GFR ESTIMATED > 60; GLUCOSE 146 MG/DL (70-105); POTASSIUM 2.9 MMOL/L (3.6-5.0); SODIUM 144 MMOL/L (135-145); TOTAL PROTEIN 4.4 GM/DL (6.4-8.2)
[2017-09-28] MEDS ORDERED: FUROSEMIDE 40 MG/4 ML INJ (LASIX) IVP SCH (07:00)
[2017-09-28] MEDS ORDERED: NS IV SCH (07:00)
[2017-09-28] MEDS ORDERED: GENTAMICIN IV SCH (07:00)
[2017-09-28] MEDS ORDERED: ARIP30TA10 PO (08:00)
[2017-09-28] MEDS ORDERED: DIAZ5TAB3 PO (08:00)
[2017-09-28] MEDS ORDERED: ESOM40CA52 PO (08:00)
[2017-09-28] MEDS ORDERED: MONT10TA24 PO (08:00)
[2017-09-28] MEDS ORDERED: ALLO300T2 PO (08:00)
[2017-09-28] MEDS ORDERED: NAPR500T4 PO (08:00)
[2017-09-28] MEDS ORDERED: DICL100G18 TOP (08:00)
[2017-09-28] MEDS ORDERED: FLUT16SP22 NSEACH (08:00)
[2017-09-28] MEDS ORDERED: ALBU18HF2 INH (08:00)
--- NOTE | 2017-09-28 08:24 | Diagnostic Imaging Report ---
Indication: Hypoxemia PA and lateral chest There is cardiomegaly. Pulmonary vascularity is normal. Lungs are clear. There are no effusions or pneumothoraces. There is a central line in the right subclavian vein with tip projecting over the right innominate vein. Impression: Cardiomegaly. Lungs are clear. Dictated by: Dictated on workstation # [id number]
[2017-09-28 08:30] VITALS: BP 170/80
--- NOTE | 2017-09-28 08:41 | History & Physicial (CHS) ---
HPI History of Present Illness: 52 yo male came to ER due to shortness of breath at rest starting about 4 days ago. He has been using dixie-seltzer cold meds. 2 days ago developed non- productive cough. Went to see Neurologist (for his epilepsy) and was noted to have O2 sat of 84%, he went home, slept with cpap on for several hours and when he woke up still short of breath, brought him to the hospital. He usually uses oxygen at night, but not continuously and reportedly when he saw Pulmonology last, time motion analyst supplemental oxygen was recommended but he did not want to do it. He states he has not had SOA this severe in the past. He endorses edema in legs, denies fever or chills. Denies nasal congestion, runny nose. Date seen by provider: Sep 28, 2017 Time Seen by Provider: 10:33 Attending Physician Nadine Harp MD PCP Center[facility] [place] Consult Date of Admission Sep 27, 2017 at 10:15 pm Home Medications Home Medications Reviewed patient Home Medication Reconciliation Form Allergies Coded Allergies: NKANo Known Allergies (Verified Allergy, Unknown, 09/27/17) CNW-Wihbqa-Nntiiw Hx Patient Social History Alcohol Use: Past History Recreational Drug Use: No Smoking Status: Never a Smoker Type Used: Cigars Recent Foreign Travel: No Contact w/other who traveled: No Recent Hopitalizations: No Recent Infectious Disease Expo: No Physical Abuse Screen: No Sexual Abuse: No Immunizations Up To Date Tetanus Booster (TDap): Unknown Date of Pneumonia Vaccine: Aug 19, 2014 Date of Influenza Vaccine: Jul 08, 2016 Past Medical History Past Medical History 1. DM 2. Bipolar Disorder 3. Personality Disorder 4. Obesity 5. Occasional Tobacco use- cigars 6. ADELA, using CPAP 7. B- Cell small lymphocytic lymphoma (previously evaluated by Charlee 2008 who recommended cessation of medications and follow up) Now following with Dr. Lawton 8. Migraines with [facility] (Dr. Daniels) 9. Possible seizure disorder (evaluated by Neurology with normal EEG) 10. History of alcoholism- last drink reported 2011 11. Impulse control disorder 12. Squamous cell carcinoma- sp resection 13. Basal cell carcinoma- sp resection 14. GERD with gastritis and duodenitis 15. HTN 16. HLP 17. ED 18. DDD Past Surgical History 1. Cardiac Cath 05-14-14 with PTCA to LAD using Promus 3.5x24mm stent, remaining 70% stenosis in OM, with small right. 2. Colonoscopy and EGD- [facility] 2009 3. Basal Cell carcinoma resected face 4. Squamous cell resected face 5. Left Carpal Tunnel 2000 6. Rt. knee arthroscopy 1993 and 2003 7. Cardiac Cath 06-24-14 by [facility] demonstrating patent stent 8. Colonoscopy 2013 [place] Family Medical History Significant Family History: Cancer, Diabetes, Hypertension Review of Systems ([facility]) Constitutional: No chills, No fever EENTM: No nose congestion Respiratory: see HPI Cardiovascular: No chest pain Gastrointestinal: No abdominal pain Genitourinary: no symptoms reported Reviewed Test Results Reviewed Test Results Lab Laboratory Tests Test 09/27/17 19:38 09/27/17 20:00 09/28/17 05:45 Range/Units Urine Color YELLOW Urine Clarity CLEAR Urine pH 8 5-9 Urine Specific [place] 1.010 L 1.016-1.022 Urine Protein 1+ H NEGATIVE Urine Glucose (UA) NEGATIVE NEGATIVE Urine Ketones 2+ H NEGATIVE Urine Nitrite NEGATIVE NEGATIVE Urine Bilirubin NEGATIVE NEGATIVE Urine Urobilinogen 1 NORMAL MG/DL Urine Leukocyte Esterase NEGATIVE NEGATIVE Urine RBC (Auto) NEGATIVE NEGATIVE Urine RBC NONE /HPF Urine WBC NONE /HPF Urine Squamous Epithelial Cells RARE /HPF Urine Crystals NONE /LPF Urine Bacteria NONE /HPF Urine Casts NONE /LPF Urine Mucus NEGATIVE /LPF Urine Culture Indicated NO White Blood Count 13.4 H 9.5 4.3-11.0 10^3/uL Red Blood Count 3.73 L 2.95 L 4.35-5.85 10^6/uL Hemoglobin 10.2 L 8.2 L 13.3-17.7 G/DL Hematocrit 33 L 26 L 40-54 % Mean Corpuscular Volume 87 88 80-99 FL Mean Corpuscular Hemoglobin 27 28 25-34 PG Mean Corpuscular Hemoglobin Concent 31 L 32 32-36 G/DL Red Cell Distribution Width 15.4 H 15.5 H 10.0-14.5 % Platelet Count 227 187 130-400 10^3/uL Mean Platelet Volume 11.3 H 11.2 H 7.4-10.4 FL Neutrophils (%) (Auto) 60 62 42-75 % Lymphocytes (%) (Auto) 28 25 12-44 % Monocytes (%) (Auto) 10 12 0-12 % Eosinophils (%) (Auto) 2 0 0-10 % Basophils (%) (Auto) 0 0 0-10 % Neutrophils # (Auto) 8.0 H 5.9 1.8-7.8 X 10^3 Lymphocytes # (Auto) 3.8 2.4 1.0-4.0 X 10^3 Monocytes # (Auto) 1.3 H 1.2 H 0.0-1.0 X 10^3 Eosinophils # (Auto) 0.2 0.0 0.0-0.3 10^3/uL Basophils # (Auto) 0.1 0.0 0.0-0.1 10^3/uL Prothrombin Time 13.7 12.2-14.7 SEC INR Comment 1.0 0.8-1.4 Activated Partial Thromboplast Time 33 24-35 SEC D-Dimer 0.43 0.00-0.49 UG/ML Sodium Level 142 144 135-145 MMOL/L Potassium Level 3.0 L 2.9 L 3.6-5.0 MMOL/L Chloride Level 102 108 H 98-107 MMOL/L Carbon Dioxide Level 28 26 21-32 MMOL/L Anion Gap 12 10 5-14 MMOL/L Blood Urea Nitrogen 9 7 7-18 MG/DL Creatinine 0.81 0.71 0.60-1.30 MG/DL Estimat Glomerular Filtration Rate > 60 > 60 BUN/Creatinine Ratio 11 10 Glucose Level 127 H 146 H 70-105 MG/DL Lactic Acid Level 1.08 1.19 0.50-2.00 MMOL/L Calcium Level 8.7 7.5 L 8.5-10.1 MG/DL Total Bilirubin 0.6 0.5 0.1-1.0 MG/DL Aspartate Amino Transf (AST/SGOT) 22 18 5-34 U/L Alanine Aminotransferase (ALT/SGPT) 17 13 0-55 U/L Alkaline Phosphatase 89 68 40-136 U/L Troponin I < 0.30 <0.30 NG/ML Total Protein 6.8 4.4 L 6.4-8.2 GM/DL Albumin 3.8 3.2 3.2-4.5 GM/DL TSH [place] Testing 1.90 0.35-4.94 UIU/ML Radiology CXR 09/27/17: IMPRESSION: New opacities within the right mid and lower lung. Findings may relate to pneumonia versus edema. Recommend clinical correlation. Persistent enlargement of the cardiac silhouette, stable from prior examination. Probable central venous catheter overlying the right upper chest. This appears stable. Physical Exam-([facility]) Physical Exam Vital Signs VS - Last 72 Hours, by Label 09/27/17 09/27/17 09/27/17 09/27/17 19:00 19:00 19:16 19:36 Temp 99.3 Pulse 83 Resp 25 B/P (MAP) 186/66 (106) Pulse Ox 93 86 95 92 O2 Delivery Nasal Cannula Room Air Nasal Cannula Nasal Cannula O2 Flow Rate 2.00 1.00 09/27/17 09/27/17 09/27/17 09/27/17 20:40 22:44 23:03 23:30 Temp 100.4 98.9 99.5 Pulse 88 103 Resp 16 22 B/P (MAP) 172/71 (104) Pulse Ox 98 93 O2 Delivery Nasal Cannula Room Air Nasal Cannula O2 Flow Rate 1.00 09/28/17 09/28/17 09/28/17 09/28/17 00:04 00:15 00:20 01:00 Pulse 88 98 85 Pulse Ox 97 97 O2 Delivery Vapotherm O2 Flow Rate 15.00 FiO2 40 40 09/28/17 09/28/17 09/28/17 09/28/17 01:19 04:16 06:11 08:20 Temp 99.9 Pulse 77 Resp 18 B/P (MAP) 160/70 (100) Pulse Ox 98 97 99 O2 Delivery Vapotherm Room Air Nasal Cannula Nasal Cannula O2 Flow Rate 15.00 4.00 2.00 FiO2 40 09/28/17 09/28/17 09/28/17 09/28/17 08:30 11:30 15:55 18:26 Temp 98.4 98.4 97.9 Pulse 68 68 65 Resp 20 20 24 B/P (MAP) 170/80 (110) 170/80 (110) 160/70 (100) Pulse Ox 98 98 95 97 O2 Delivery Nasal Cannula Nasal Cannula Nasal Cannula Nasal Cannula O2 Flow Rate 3.00 3.00 3.00 1.00 09/28/17 19:00 Pulse 73 Capillary Refill : Less Than 3 Seconds General Appearance: no apparent distress, obese Respiratory: lungs clear, normal breath sounds Cardiovascular: regular rate, rhythm, no murmur Gastrointestinal: normal bowel sounds, non tender, soft Extremities: pedal edema (1-2+ to mid [place]) Neurologic/Psychiatric: alert, normal mood/affect Skin: normal color, warm/dry Clinical Quality Measures DVT/VTE Risk/Contraindication: Risk Factor Score Per Nursin RFS Level Per Nursing on Admit: 3=High Assessment/Plan Assessment/Plan Admission Dx Hypoxia with suspected pneumonia and/or pulmonary edema CAD with history of stenting Sleep apnea on cpap DMII Lymphoma HTN HLD Plan Hypoxia with suspected pneumonia and/or pulmonary edema- suspect combination of pneumonia and fluid overload related to diastolic dysfunction, febrile to 100.4 overnight and WBC 13 on admit. Continue CAP antibiotics, IV furosemide CAD with history of stenting- with worsening hypoxia and pulmonary edema, Cardiology consulted, appreciate recommendations Sleep apnea on cpap- cpap while sleeping DMII- on large doses of insulin at home, will start with levemir 50 units at night (reported home dose of Lantus 100 units BID), will monitor blood sugar closely, diabetic diet, sliding scale insulin Lymphoma- on Imbruvica, consider Oncology consult if not ready for d/c tomorrow HTN- resume home medications HLD- resme home medications Anemia- previously appears fairly stable from 12/09 until today with decrease today, suspect underlying anemia of chronic disease, will consult Heme/Onc tomorrow if not ready for d/c- otherwise recommend follow-up outpatient with Oncology DVT ppx- enoxaparin NADINE HARP MD Sep 28, 2017 8:41 am
[2017-09-28] MEDS ORDERED: KCL 20 MEQ TAB (K-DUR) PO NR (09:00)
[2017-09-28] MEDS ORDERED: NORT25CA PO (09:13)
[2017-09-28] MEDS ORDERED: VORT20TA PO (09:13)
[2017-09-28] MEDS ORDERED: ASPI-983 PO (09:13)
[2017-09-28] MEDS ORDERED: ALBU2.5V4 NEB (09:13)
[2017-09-28] MEDS ORDERED: UMEC62.5 INH (09:13)
[2017-09-28] MEDS ORDERED: METO-370 PO (09:34)
[2017-09-28] MEDS ORDERED: ALBU1.25 NEB (09:34)
[2017-09-28] MEDS ORDERED: IBRU140C PO (09:41)
[2017-09-28] MEDS: POTASSIUM CL 10MEQ/50ML IVPB 50 ML IV SCH ×5 (09:56→13:26)
--- NOTE | 2017-09-28 11:26 | Consultation-Cardiology ---
HPI-Cardiology Cardiology Consultation: Date of Consultation 09/28/17 Time Seen by Provider: 11:30 Date of Admission 09-27-17 Attending Physician Nadine Harp MD Admitting Physician [place] Consulting Physician Sabrina Rendon MD HPI: Chief Complaint: Hypertension Dyspnea Mr. Mckeon is a 52 year old male admitted to 408 from the ED. He has family at the bedside. He is currently sitting on the side of the bed. He reports he has had increasing shortness of breath over the last few days with lose cough. He does report fever and chills at home. He does report some nausea and lose stools. He does report the lose stools are a chronic issue d/t "cancer" medication. He denies any palpitations, syncope or near syncope. He reports LE edema which is worse in the morning and improves during the day. He states he saw his neurologist yesterday and his oxygen sat was noted to be 88-89%. He was instructed to call his PCP. He called his PCP the following morning for an appt and was directed to the ED. He states he feels better. He feels his breathing has improved. He reports he has been compliant with his medications at home. Review of Systems-Cardiology Review of Systems Constitutional: chills, fever, malaise Eyes: No vision change Ears/Nose/Throat: No epistaxis, No recent hearing loss Respiratory: As described under HPI Cardiovascular: As described under HPI Gastrointestinal: diarrhea, nausea Genitourinary: No dysuria, No hematuria Musculoskeletal: no symptoms reported Skin: No rash, No ulcerations Psychiatric/Neurological: No focal weakness, No syncope Hematologic: No bleeding abnormalities KYP-Akfewn-Tdtzjh Hx Patient Social History Alcohol Use: Past History Recreational Drug Use: No Smoking Status: Never a Smoker Type Used: Cigars Recent Foreign Travel: No Recent Infectious Disease Expo: No Hospitalization with Isolation: Denies Physical Abuse Screen: No Sexual Abuse: No Immunizations Up To Date Tetanus Booster (TDap): Unknown Date of Pneumonia Vaccine: Aug 19, 2014 Date of Influenza Vaccine: Jul 08, 2016 Past Medical History PMH As described under Assessment. Family Medical History Family Medical History: He reports his father had HTN. He reports his mother had a stroke. Family History: 19 FATHER Arthritis Cataracts Deafness or hearing loss Headache disorder Hypercholesterolemia Hypertension Respiratory disorder 19 MOTHER Completed stroke Diabetes mellitus Headache disorder Psychosocial problem Respiratory disorder Visual disorder G8 BROTHER Alcoholism Headache disorder Prostate cancer G8 SISTER Headache disorder Allergies and Home Medications Allergies Coded Allergies: NKANo Known Allergies (Verified Allergy, Unknown, 09/27/17) Home Medications Albuterol Sulfate 18 Gm Hfa.aer.ad, 2 PUFF INH Q4H PRN for SHORTNESS OF BREATH, (Reported) Albuterol Sulfate 1.25 Mg/3 Ml Vial.neb, 1.25 MG NEB TID PRN for SHORTNESS OF BREATH, (Reported) Allopurinol 300 Mg Tablet, 300 MG PO DAILY, (Reported) Aripiprazole 30 Mg Tablet, 30 MG PO DAILY, (Reported) Aspirin 81 Mg Tablet.dr, 81 MG PO DAILY, (Reported) Atorvastatin Calcium 20 Mg Tablet, 20 MG PO DAILY, (Reported) LAST FILLED #90 04-14-17 Clonidine HCl 0.1 Mg Tablet, 0.1 MG PO BID, (Reported) Clopidogrel Bisulfate 75 Mg Tablet, 75 MG PO DAILY, (Reported) Diazepam 5 Mg Tablet, 5 MG PO TID PRN for ANXIETY, (Reported) Diclofenac Sodium 100 Gm Gel..gram., 4 GM TOP Q4H PRN for JOINT PAIN, (Reported) APPLY TO KNEE AND HIP Esomeprazole Magnesium 40 Mg Capsule.dr, 40 MG PO DAILY, (Reported) Ezetimibe 10 Mg Tablet, 10 MG PO DAILY, (Reported) LAST FILLED #90 04-14-17 Fluticasone Propionate 16 Gm [place].susp, 1 SPRAY NSEACH DAILY, (Reported) Furosemide 40 Mg Tablet, 40 MG PO DAILY, (Reported) Gabapentin 300 Mg Capsule, 600 MG PO TID, (Reported) TAKES 2 (300MG) CAPSULES Ibrutinib 140 Mg Capsule, 420 MG PO HS, (Reported) TAKES 3 (140MG) CAPSULES Insulin Aspart 300 Units/3 Ml Solution, 5-20 UNITS SC AC, (Reported) Insulin Glargine,Hum.rec.anlog 100 Unit/1 Ml Vial, 100 UNITS SC BID, (Reported) Liraglutide 0.6 Mg/0.1 Ml Pen.injctr, 1.8 MG INJ DAILY, (Reported) Losartan Potassium 100 Mg Tablet, 100 MG PO DAILY, (Reported) LAST FILLED #90 11-30-16 Metoprolol Succinate 50 Mg Tab.er.24h, 50 MG PO BID, (Reported) LAST FILLED #180 04-14-17 Montelukast Sodium 10 Mg Tablet, 10 MG PO DAILY, (Reported) Naproxen 500 Mg Tablet, 500 MG PO Q12H PRN for HEADACHE, (Reported) Nortriptyline HCl 25 Mg Capsule, 50 MG PO DAILY, (Reported) TAKES 2 (25MG) CAPSULES Oxycodone HCl/Acetaminophen 1 Each Tablet, 1 TAB PO Q6H PRN for PAIN-MODERATE, ( Reported) Potassium Chloride 20 Meq Tab.er.prt, 20 MEQ PO BID, (Reported) Tamsulosin HCl 0.4 Mg Cap.er.24h, 0.4 MG PO DAILY, (Reported) Umeclidinium [place] 62.5 Mcg Blst.w.dev, 1 PUFF INH DAILY, (Reported) Vortioxetine Hydrobromide 20 Mg Tablet, 20 MG PO DAILY, (Reported) Zolpidem Tartrate 10 Mg Tablet, 10 MG PO HS, (Reported) Physical Exam-Cardiology Physical Exam Vital Signs/I&O Vital Sign - Last 12Hours 09/28/17 09/28/17 09/28/17 09/28/17 04:16 06:11 08:30 11:30 Temp 99.9 98.4 98.4 Pulse 77 68 68 Resp 18 20 20 B/P (MAP) 160/70 (100) 170/80 (110) 170/80 (110) Pulse Ox 97 99 98 98 O2 Delivery Room Air Nasal Cannula Nasal Cannula Nasal Cannula O2 Flow Rate 4.00 3.00 3.00 Intake and Output 09/28/17 00:00 Intake Total 50 ml Balance 50 ml Capillary Refill : Less Than 3 Seconds Constitutional: appears stated age, AAO x 3, well-developed, well-nourished HEENT: PERRL, hearing is well preserved, No xanthelasmas are seen Neck: No carotid bruit, carotid pulses are 2 + bilaterally Respiratory: other (good air entry; diminished bases bilat; occ cough) Cardiovascular: regular rate-rhythm, No JVD, S1 and S2 Gastrointestinal: No tender, soft, audible bowel sounds Rectal: deferred Extremities: swelling (midl to mod bilat LE edema) Neurologic/Psychiatric: grossly intact Skin: No ulcerations, other (bruising to abd wall) Data Review Labs Laboratory Tests 09/27/17 19:38: Urine Color YELLOW, Urine Clarity CLEAR, Urine pH 8, Urine Specific [place] 1.010L, Urine Protein 1+H, Urine Glucose (UA) NEGATIVE, Urine Ketones 2+H, Urine Nitrite NEGATIVE, Urine Bilirubin NEGATIVE, Urine Urobilinogen 1, Urine Leukocyte Esterase NEGATIVE, Urine RBC (Auto) NEGATIVE, Urine RBC NONE, Urine WBC NONE, Urine Squamous Epithelial Cells RARE, Urine Crystals NONE, Urine Bacteria NONE, Urine Casts NONE, Urine Mucus NEGATIVE, Urine Culture Indicated NO 09/27/17 20:00: White Blood Count 13.4H, Red Blood Count 3.73L, Hemoglobin 10.2L, Hematocrit 33L , Mean Corpuscular Volume 87, Mean Corpuscular Hemoglobin 27, Mean Corpuscular Hemoglobin Concent 31L, Red Cell Distribution Width 15.4H, Platelet Count 227, Mean Platelet Volume 11.3H, Neutrophils (%) (Auto) 60, Lymphocytes (%) (Auto) 28 , Monocytes (%) (Auto) 10, Eosinophils (%) (Auto) 2, Basophils (%) (Auto) 0, Neutrophils # (Auto) 8.0H, Lymphocytes # (Auto) 3.8, Monocytes # (Auto) 1.3H, Eosinophils # (Auto) 0.2, Basophils # (Auto) 0.1, Prothrombin Time 13.7, INR Comment 1.0, Activated Partial Thromboplast Time 33, D-Dimer 0.43, Sodium Level 142, Potassium Level 3.0L, Chloride Level 102, Carbon Dioxide Level 28, Anion Gap 12, Blood Urea Nitrogen 9, Creatinine 0.81, Estimat Glomerular Filtration Rate > 60, BUN/Creatinine Ratio 11, Glucose Level 127H, Lactic Acid Level 1.08, Calcium Level 8.7, Total Bilirubin 0.6, Aspartate Amino Transf (AST/SGOT) 22, Alanine Aminotransferase (ALT/SGPT) 17, Alkaline Phosphatase 89, Troponin I < 0.30, Total Protein 6.8, Albumin 3.8, TSH [place] Testing 1.90 09/28/17 05:45: White Blood Count 9.5, Red Blood Count 2.95L, Hemoglobin 8.2L, Hematocrit 26L, Mean Corpuscular Volume 88, Mean Corpuscular Hemoglobin 28, Mean Corpuscular Hemoglobin Concent 32, Red Cell Distribution Width 15.5H, Platelet Count 187, Mean Platelet Volume 11.2H, Neutrophils (%) (Auto) 62, Lymphocytes (%) (Auto) 25 , Monocytes (%) (Auto) 12, Eosinophils (%) (Auto) 0, Basophils (%) (Auto) 0, Neutrophils # (Auto) 5.9, Lymphocytes # (Auto) 2.4, Monocytes # (Auto) 1.2H, Eosinophils # (Auto) 0.0, Basophils # (Auto) 0.0, Sodium Level 144, Potassium Level 2.9L, Chloride Level 108H, Carbon Dioxide Level 26, Anion Gap 10, Blood Urea Nitrogen 7, Creatinine 0.71, Estimat Glomerular Filtration Rate > 60, BUN/ Creatinine Ratio 10, Glucose Level 146H, Lactic Acid Level 1.19, Calcium Level 7.5L, Total Bilirubin 0.5, Aspartate Amino Transf (AST/SGOT) 18, Alanine Aminotransferase (ALT/SGPT) 13, Alkaline Phosphatase 68, Total Protein 4.4L, Albumin 3.2, Magnesium Level 1.3L, B-Type Natriuretic Peptide 232.7H 09/28/17 10:45: Glucometer 153H Microbiology 09/27/17 Influenza Types A,B Antigen (IGGY) - Final, Complete Laboratory Tests 09/27/17 20:00 09/28/17 05:45 Radiology NAME: LORENA MCKEON [facility] REC#: [id number] PT STATUS: ADM IN : 1965 PHYSICIAN: NADINE HARP MD ADMIT DATE: 09/27/17 Signed Date of Exam: 09/28/17 CHEST PA/LAT (2 VIEW) Indication: Hypoxemia PA and lateral chest There is cardiomegaly. Pulmonary vascularity is normal. Lungs are clear. There are no effusions or pneumothoraces. There is a central line in the right subclavian vein with tip projecting over the right innominate vein. Impression: Cardiomegaly. Lungs are clear. Dictated by: Dictated on workstation # [id number] Dict: 09/28/17819 Trans: 09/28/17820 Interpreted by: MALIA CARRANZA MD Electronically signed by: MALIA CARRANZA MD 09/28/17820 ECG Impression ECG Initial ECG Rhythm: Normal Sinus A/P-Cardiology Assessment/Admission Diagnosis Dyspnea likely multi-factorial (see below) Obesity hypoventilation syndrome Probable pneumonia - management per Medical services Ac exac of COPD - Medical services managing Anemia of undetermined etiology, apparently worsening HTN, not well controlled Chronic diastolic CHF CAD - s/p Promus element 3.5 x 24 mm stent to the proximal LAD on 05-14-2014. Last card cath of 10/20/15 showed mild to mod CAD, patent LAD stent, LVEF 50%, normal LVEDP, no significant MR Echo of 09/02/16 shows LVEF 55%, mod conc LVH, no sgnificant valvular heart disease (on a technically difficult study) Abnormal ECG: ECG of 08/22/16 shows sinus rhythm with freq PACs, left axis dev, clockwise rotation of the heart, cannot exclude old ant [place] Holter of 09/02/16 showed NSR with occ PACs and PVCs, no SVT or VT, no significant miguel Monoclonal B-cell lymphocytosis and lymphoma, followed by Dr. Deshpande HLP - statin therapy DM II Obesity with BMI of 57.5 H/O CML H/O ac renal failure d/t rhabdomyolysis of undetermined etiology in the early according to the patient H/O bi-polar disorder Sleep apnea, treated with CPAP Intolerance to KRISTI secondary to cough Carotid u/s from June 17, 2014 showed no significant plaque Hypokalemia - likely d/t diuretic tx Discussion and Recomendations Multi-factorial dyspnea, likely r/t pneumonia, ac exac of COPD Pneumonia being managed by medical services. Uncontrolled hypertension for which we will restart his home medications. H/O diastolic CHF, continue diuretics He has hypokalemia and hypomag which is likely r/t diuretic use. Which we will replace. We advise echocardiogram to evaluate LVEF and structure. Monitor lab closely. D/t h/o CAD we advise continuation of ASA and Plavix. Worsening anemia of undetermined etiology. Therefore we will stop Plavix since last stenting was greater than 2 years ago. We will continue ASA. Advise further work up for anemia and consideration of transfusion. Consider consulting hematology/oncology. This is being managed by medical services. We would like to thank medical services for this consult. Further rec will be based on his hospital course This consult is being scribed by Hazel Ledesma APRN on behalf of Dr. Rendon after discussion regarding plan of care. Clinical Quality Measures DVT/VTE Risk/Contraindication: Risk Factor Score Per Nursin RFS Level Per Nursing on Admit: 3=High Physician Assessment Physician Assessment Notes some improvement of shortness of breath since admission. Supple oxygen has helped symptoms. Would like to d/c the evening dose of furosemide because that does not allow him to rest well in the night. Reports gen malaise and weakness. No cp or palp or syncope Lungs: fair air entry, diminished at the bases Cor: reg Ext: mild to mod bilat leg edema A&R * As documented in our note above that I updated (italics) and as noted below * Continue current card regimen * D/c evening does of furosemide * D/c Plavix because of multiple bruises at sites of insulin admin. Continue aspirin * Replenish lytes * Consider transfusion if Hgb drops below 8 and if shortness of breath continues * Monitor labs JANICE LEDESMA Sep 28, 2017 11:26 SABRINA RENDON MD FACP FAC CCDS Sep 28, 2017 15:43
[2017-09-28 11:30] VITALS: BP 170/80
[2017-09-28] MEDS ORDERED: meTOprolol SUCCINATE 100 MG (TOPROL XL) TAB PO NR (11:30)
[2017-09-28] MEDS ORDERED: LOSARTAN 50 MG (COZAAR) TAB PO NR (12:30)
[2017-09-28] MEDS ORDERED: LOSA100T3 PO (13:22)
[2017-09-28] MEDS ORDERED: DIAZEPAM 5 MG (VALIUM) TABLET PO PRN (14:15)
[2017-09-28] MEDS ORDERED: oxyCODONE/APAP 10/325MG (PERCOCET 10) TABLET PO PRN (14:15)
[2017-09-28] MEDS ORDERED: MAGNESIUM 1 GM/100 ML IVPB 100 ML IV ONE (14:30)
[2017-09-28] MEDS: MAGNESIUM 1 GM/100 ML IVPB 100 ML IV SCH ×4 (14:52→18:39)
[2017-09-28 15:55] VITALS: BP 160/70
[2017-09-28] MEDS ORDERED: PATIENT MAY USE OWN MED,SINGLE MED PO SCH (16:15)
[2017-09-28] MEDS ORDERED: ONDANSETRON 8 MG (ZOFRAN) ORAL DISSOLVE TAB PO PRN (16:15)
[2017-09-28] MEDS ORDERED: TROUGH ORDER-PHARMACY XX NR (17:00)
[2017-09-28] MEDS ORDERED: ALFUZOSIN HCL 10 MG TAB (UROXATRAL) PO SCH (18:00)
[2017-09-28 19:45] VITALS: BP 159/72
[2017-09-28] MEDS: UMECLIDINIUM BROMIDE (INCRUSE ELLIPTA) 7'S IH SCH (20:10)
[2017-09-28] MEDS ORDERED: ENOXAPARIN 40 MG/0.4 ML (LOVENOX) SYR SC SCH (20:30)
[2017-09-28] MEDS ORDERED: ARIPIPRAZOLE 15 MG (ABILIFY) TAB ONE ×2 (20:42→21:03)
[2017-09-28] MEDS: meTOproloL SUCCINATE 50 MG (TOPROL XL) TAB PO SCH (20:57)
[2017-09-28] MEDS: cloNIDine 0.1 MG (CATAPRES) TAB PO SCH (20:58)
[2017-09-28] MEDS: GABAPENTIN 300 MG (NEURONTIN) CAP PO SCH (20:58)
[2017-09-28] MEDS ORDERED: ZOLPIDEM 5 MG (AMBIEN) TAB PO SCH (21:00)
[2017-09-28] MEDS ORDERED: inSUlin DETERMIR 1 UNIT/0.01 ML (LEVEMIR) CHARGE PER UNIT SQ SCH (21:00)
[2017-09-28] MEDS ORDERED: LOPERAMIDE 2 MG (IMODIUM) CAP PO SCH (21:00)
[2017-09-28] MEDS ORDERED: IBRUTINIB 140 MG PO SCH (21:00)
[2017-09-28] MEDS: ARIPIPRAZOLE 15 MG (ABILIFY) TAB PO SCH (21:03)
[2017-09-29] VITALS: BP 135/60
[2017-09-29] MEDS: CEFEPIME INJECTION 2,000 MG in NS (IVPB) 50 ML IV SCH ×2 (00:02→14:16)
[2017-09-29] MEDS: AZITHROMYCIN INJECTION 500 MG in NS (IVPB) 250 ML IV SCH (00:03)
[2017-09-29] MEDS: RT-ALBUTEROL/IPRATROPIUM 3 ML (DUONEB) VIAL INH SCH ×4 (01:40→14:09)
[2017-09-29 04:00] VITALS: BP 117/53
[2017-09-29] MEDS ORDERED: inSUlin ASPART (NovoLOG) 1 UNIT/0.01 ML (CHARGE PER UNIT) SC SCH (06:00)
[2017-09-29 06:51] LABS: HEMOGLOBIN 9.7 G/DL (13.3-17.7); MEAN PLATELET VOLUME 11.2 FL (7.4-10.4); RED BLOOD COUNT 3.47 10^6/uL (4.35-5.85); RED CELL DISTRIBUTION WIDTH 15.7 % (10.0-14.5); WHITE BLOOD COUNT 10.9 10^3/uL (4.3-11.0)
[2017-09-29] MEDS: inSUlin (REGULAR) HUMAN 1 UNIT/0.01 ML (CHARGE PER UNIT) SC SCH ×2 (06:52→11:45)
[2017-09-29] MEDS ORDERED: PANTOPRAZOLE 40 MG (PROTONIX) TAB PO SCH (07:00)
[2017-09-29] MEDS ORDERED: KCL 10 MEQ TAB (MICRO K) PO SCH (07:00)
[2017-09-29 07:12] LABS: ALANINE AMINOTRANSFERASE 14 U/L (0-55); ALBUMIN 3.4 GM/DL (3.2-4.5); ALKALINE PHOSPHATASE 74 U/L (40-136); BILIRUBIN,TOTAL 0.6 MG/DL (0.1-1.0); BUN/CREATININE RATIO 14; CALCIUM 8.2 MG/DL (8.5-10.1); CARBON DIOXIDE 27 MMOL/L (21-32); CHLORIDE 105 MMOL/L (98-107); CHOLESTEROL 134 MG/DL (< 200); CREATININE SERUM 0.81 MG/DL (0.60-1.30); GFR ESTIMATED > 60; GLUCOSE 134 MG/DL (70-105); HDL CHOLESTEROL 34 MG/DL (40-60); MAGNESIUM 2.2 MG/DL (1.8-2.4); POTASSIUM 3.4 MMOL/L (3.6-5.0); SODIUM 141 MMOL/L (135-145); TOTAL PROTEIN 6.1 GM/DL (6.4-8.2); TRIGLYCERIDES 101 MG/DL (<150); VLDL CHOLESTEROL 20 MG/DL (5-40)
[2017-09-29] MEDS: GABAPENTIN 300 MG (NEURONTIN) CAP PO SCH ×2 (07:47→14:17)
[2017-09-29] MEDS: ARIPIPRAZOLE 15 MG (ABILIFY) TAB PO SCH (07:47)
[2017-09-29] MEDS: cloNIDine 0.1 MG (CATAPRES) TAB PO SCH (07:48)
[2017-09-29] MEDS: meTOproloL SUCCINATE 50 MG (TOPROL XL) TAB PO SCH (07:49)
[2017-09-29 08:00] VITALS: BP 142/65
[2017-09-29] MEDS ORDERED: KCL 20 MEQ TAB (K-DUR) PO NR (08:45)
[2017-09-29] MEDS ORDERED: eZETimibe 10 MG (ZETIA) TABLET PO SCH (09:00)
[2017-09-29] MEDS ORDERED: NON-FORMULARY MEDICATION 1 EA EA (Vortioxetine Hydrobromide (Trintellix) 20 MG) PO SCH (09:00)
[2017-09-29] MEDS ORDERED: ALLOPURINOL 300 MG (ZYLOPRIM) TAB PO SCH (09:00)
[2017-09-29] MEDS ORDERED: FUROSEMIDE 20 MG (LASIX) TAB PO SCH (09:00)
[2017-09-29] MEDS ORDERED: meTOprolol SUCCINATE 100 MG (TOPROL XL) TAB PO SCH (09:00)
[2017-09-29] MEDS ORDERED: LOSARTAN 50 MG (COZAAR) TAB PO SCH (09:00)
[2017-09-29] MEDS ORDERED: ASPIRIN E.C. 81 MG (ECOTRIN) TAB PO SCH (09:00)
[2017-09-29] MEDS ORDERED: NORTRIPTYLINE 25 MG (PAMELOR) CAP PO SCH (09:00)
[2017-09-29] MEDS ORDERED: LOSARTAN 100 MG (COZAAR) TABLET PO SCH (09:00)
[2017-09-29] MEDS ORDERED: ATORVASTATIN 20 MG (LIPITOR) TABLET PO SCH (09:00)
[2017-09-29] MEDS ORDERED: NON-FORMULARY MEDICATION 1 EA EA (Liraglutide (Victoza 3-Pak) 1.8 MG) INJ SCH (09:00)
[2017-09-29] MEDS ORDERED: CLOPIDOGREL 75 MG (PLAVIX) TABLET PO SCH (09:00)
[2017-09-29] MEDS ORDERED: INFLUENZA TRIvalent 2017-2018 0.5 ML/45 MCG SYR IM ONE (10:15)
[2017-09-29] MEDS ORDERED: FURO20TA4 PO (10:17)
--- NOTE | 2017-09-29 10:21 | Progress Note-Cardiology ---
Cardiology SOAP Progress Note Subjective: Sitting up in a chair at the bedside. Feels breathing is better and LE edema is better. No c/o CP. Wants to go home. Objective: I&O/Vital Signs Vital Sign - Last 12Hours 09/29/17 09/29/17 09/29/17 09/29/17 00:00 01:00 01:40 04:00 Temp 98.7 98.3 Pulse 69 70 68 Resp 20 20 B/P (MAP) 135/60 (85) 117/53 (74) Pulse Ox 93 95 95 O2 Delivery NIV CPAP NIV Bilevel NIV CPAP O2 Flow Rate 4.00 4.00 4.00 09/29/17 09/29/17 06:31 08:00 Temp 98.6 Pulse 65 Resp 20 B/P (MAP) 142/65 (90) Pulse Ox 94 95 O2 Delivery Room Air NIV CPAP O2 Flow Rate 4.00 Intake and Output 09/29/17 00:00 Intake Total 1740 ml Output Total 1800 ml Balance -60 ml Weight (Pounds): 367 Weight (Ounces): 4.0 Weight (Calculated Kilograms): 166.850628 Constitutional: appears stated age, AAO x 3, well-developed, well-nourished Respiratory: other (good air entry; diminished bases bilat; occ cough) Cardiovascular: regular rate-rhythm, No JVD, S1 and S2 Gastrointestional: No tender, soft, audible bowel sounds Extremities: swelling (midl to mod bilat LE edema) Neurologic/Psychiatric: grossly intact Skin: No ulcerations, other (bruising to abd wall) Results/Procedures: Labs Laboratory Tests 09/28/17 10:45: Glucometer 153H 09/28/17 15:55: Glucometer 155H 09/28/17 20:19: Glucometer 177H 09/29/17 05:21: Glucometer 152H 09/29/17 06:10: White Blood Count 10.9, Red Blood Count 3.47L, Hemoglobin 9.7L, Hematocrit 27L, Mean Corpuscular Volume 78L, Mean Corpuscular Hemoglobin 28, Mean Corpuscular Hemoglobin Concent 36, Red Cell Distribution Width 15.7H, Platelet Count 232, Mean Platelet Volume 11.2H, Sodium Level 141, Potassium Level 3.4L, Chloride Level 105, Carbon Dioxide Level 27, Anion Gap 9, Blood Urea Nitrogen 11, Creatinine 0.81, Estimat Glomerular Filtration Rate > 60, BUN/Creatinine Ratio 14, Glucose Level 134H, Calcium Level 8.2L, Magnesium Level 2.2, Total Bilirubin 0.6, Aspartate Amino Transf (AST/SGOT) 18, Alanine Aminotransferase ( ALT/SGPT) 14, Alkaline Phosphatase 74, Total Protein 6.1L, Albumin 3.4, Triglycerides Level 101, Cholesterol Level 134, LDL Cholesterol Direct 76, VLDL Cholesterol 20, HDL Cholesterol 34L Microbiology 09/27/17 Blood Culture - Preliminary, Resulted No growth 09/27/17 Influenza Types A,B Antigen (IGGY) - Final, Complete A/P: Assessment: Dyspnea likely multi-factorial (see below) Obesity hypoventilation syndrome Probable pneumonia - management per Medical services Ac exac of COPD - Medical services managing Anemia of undetermined etiology, apparently worsening HTN, not well controlled Chronic diastolic CHF CAD - s/p Promus element 3.5 x 24 mm stent to the proximal LAD on 05-14-2014. Last card cath of 10/20/15 showed mild to mod CAD, patent LAD stent, LVEF 50%, normal LVEDP, no significant MR Echo of 09/02/16 shows LVEF 55%, mod conc LVH, no sgnificant valvular heart disease (on a technically difficult study) Abnormal ECG: ECG of 08/22/16 shows sinus rhythm with freq PACs, left axis dev, clockwise rotation of the heart, cannot exclude old ant [place] Holter of 09/02/16 showed NSR with occ PACs and PVCs, no SVT or VT, no significant miguel Monoclonal B-cell lymphocytosis and lymphoma, followed by Dr. Deshpande P - statin therapy DM II Obesity with BMI of 57.5 H/O CML H/O ac renal failure d/t rhabdomyolysis of undetermined etiology in the early according to the patient H/O bi-polar disorder Sleep apnea, treated with CPAP Intolerance to KRISTI secondary to cough Carotid u/s from June 17, 2014 showed no significant plaque Hypokalemia - likely d/t diuretic tx Plan: Multi-factorial dyspnea, likely r/t pneumonia, ac exac of COPD - improved Pneumonia being managed by medical services. OK to discharge home today Continue current medication regimen Lab next week Out pt f/u in a week Physician Assessment Physician Assessment Feels better today. Denies cp. Shortness of breath improve. Supple oxygen has helped symptoms. No cp or palp or syncope. Wishes to go home Lungs: fair air entry, diminished at the bases Cor: reg Ext: mild to mod bilat leg edema A&R * As documented in our note above that I updated (italics) and as noted below * Continue current card regimen * I spoke with him and discussed results of echo and our CV treatment plan * Have advised effort at wgt loss * Have advised oupt f/u * Risk factor mod discussed and questions answered JANICE MURDOCK [employer] Sep 29, 2017 10:21 ESPERANZA STANFORD MD FACP FAC CCDS Sep 29, 2017 10:30
[2017-09-29] MEDS ORDERED: CEFD300C3 PO (10:49)
--- NOTE | 2017-09-29 10:56 | Discharge Summary ---
Diagnosis/Chief Complaint Date of Admission Sep 27, 2017 at 10:15 pm Date of Discharge Sep 29, 2017 Admission Diagnosis Admission Diagnosis Hypoxia with suspected pneumonia and/or pulmonary edema CAD with history of stenting Sleep apnea on cpap DMII Lymphoma HTN HLD Discharge Diagnosis Hypoxia with suspected pneumonia and/or pulmonary edema- suspect combination of pneumonia and fluid overload related to diastolic dysfunction, febrile to 100.4 overnight and WBC 13 on admit. Started CAP antibiotics, IV furosemide D/c with supplemental oxygen needed with exertion, course of cefdinir and increased furosemide dose to 60 mg. CAD with history of stenting- with worsening hypoxia and pulmonary edema, Cardiology consulted, appreciate recommendations, follow up with Dr. Rendon next week with labs prior. Sleep apnea on cpap- cpap while sleeping DMII- on large doses of insulin at home, will start with levemir 50 units at night (reported home dose of Lantus 100 units BID), will monitor blood sugar closely, diabetic diet, sliding scale insulin. Resumed home meds on d/c. Lymphoma- on Imbruvica HTN- resume home medications HLD- resme home medications Anemia- previously appears fairly stable from 12/09 until today with decrease today, suspect underlying anemia of chronic disease, recommend follow-up outpatient with Oncology Chief Complaint/HPI Chief Complaint/HPI 52 yo male came to ER due to shortness of breath at rest starting about 4 days ago. He has been using dixie-seltzer cold meds. 2 days ago developed non- productive cough. Went to see Neurologist (for his epilepsy) and was noted to have O2 sat of 84%, he went home, slept with cpap on for several hours and when he woke up still short of breath, brought him to the hospital. 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 He states he has not had SOA this severe in the past. He endorses edema in legs, denies fever or chills. Denies nasal congestion, runny nose. Discharge Summary-Simple/Stand Consultations Discharge Physical Examination Allergies: Coded Allergies: NKANo Known Allergies (Verified Allergy, Unknown, 09/27/17) Vitals & I&Os Vital Sign - Last 12Hours Date Time Temp Pulse Resp B/P (MAP) Pulse Ox O2 Delivery O2 Flow Rate FiO2 09/29/17 08:00 98.6 65 20 142/65 (90) 95 NIV CPAP 4.00 09/28/17 01:19 40 Intake and Output 09/29/17 00:00 Intake Total 1740 ml Output Total 1800 ml Balance -60 ml General Appearance: Alert, No Acute Distress Respiratory: Normal Air Movement, Other (rales) Cardiovascular: Regular Rate, No Murmurs Abdominal: Normal Bowel Sounds, Soft Extremities: Other (1-2+ pitting edema to mid-jackson) Hospital Course See final discharge diagnosis. Labs Laboratory Tests Test 09/27/17 19:38 09/27/17 20:00 09/28/17 05:45 09/28/17 10:45 Range/Units Urine Color YELLOW Urine Clarity CLEAR Urine pH 8 5-9 Urine Specific [place] 1.010 L 1.016-1.022 Urine Protein 1+ H NEGATIVE Urine Glucose (UA) NEGATIVE NEGATIVE Urine Ketones 2+ H NEGATIVE Urine Nitrite NEGATIVE NEGATIVE Urine Bilirubin NEGATIVE NEGATIVE Urine Urobilinogen 1 NORMAL MG/DL Urine Leukocyte Esterase NEGATIVE NEGATIVE Urine RBC (Auto) NEGATIVE NEGATIVE Urine RBC NONE /HPF Urine WBC NONE /HPF Urine Squamous Epithelial Cells RARE /HPF Urine Crystals NONE /LPF Urine Bacteria NONE /HPF Urine Casts NONE /LPF Urine Mucus NEGATIVE /LPF Urine Culture Indicated NO White Blood Count 13.4 H 9.5 4.3-11.0 10^3/uL Red Blood Count 3.73 L 2.95 L 4.35-5.85 10^6/uL Hemoglobin 10.2 L 8.2 L 13.3-17.7 G/DL Hematocrit 33 L 26 L 40-54 % Mean Corpuscular Volume 87 88 80-99 FL Mean Corpuscular Hemoglobin 27 28 25-34 PG Mean Corpuscular Hemoglobin Concent 31 L 32 32-36 G/DL Red Cell Distribution Width 15.4 H 15.5 H 10.0-14.5 % Platelet Count 227 187 130-400 10^3/uL Mean Platelet Volume 11.3 H 11.2 H 7.4-10.4 FL Neutrophils (%) (Auto) 60 62 42-75 % Lymphocytes (%) (Auto) 28 25 12-44 % Monocytes (%) (Auto) 10 12 0-12 % Eosinophils (%) (Auto) 2 0 0-10 % Basophils (%) (Auto) 0 0 0-10 % Neutrophils # (Auto) 8.0 H 5.9 1.8-7.8 X 10^3 Lymphocytes # (Auto) 3.8 2.4 1.0-4.0 X 10^3 Monocytes # (Auto) 1.3 H 1.2 H 0.0-1.0 X 10^3 Eosinophils # (Auto) 0.2 0.0 0.0-0.3 10^3/uL Basophils # (Auto) 0.1 0.0 0.0-0.1 10^3/uL Prothrombin Time 13.7 12.2-14.7 SEC INR Comment 1.0 0.8-1.4 Activated Partial Thromboplast Time 33 24-35 SEC D-Dimer 0.43 0.00-0.49 UG/ML Sodium Level 142 144 135-145 MMOL/L Potassium Level 3.0 L 2.9 L 3.6-5.0 MMOL/L Chloride Level 102 108 H 98-107 MMOL/L Carbon Dioxide Level 28 26 21-32 MMOL/L Anion Gap 12 10 5-14 MMOL/L Blood Urea Nitrogen 9 7 7-18 MG/DL Creatinine 0.81 0.71 0.60-1.30 MG/DL Estimat Glomerular Filtration Rate > 60 > 60 BUN/Creatinine Ratio 11 10 Glucose Level 127 H 146 H 70-105 MG/DL Lactic Acid Level 1.08 1.19 0.50-2.00 MMOL/L Calcium Level 8.7 7.5 L 8.5-10.1 MG/DL Total Bilirubin 0.6 0.5 0.1-1.0 MG/DL Aspartate Amino Transf (AST/SGOT) 22 18 5-34 U/L Alanine Aminotransferase (ALT/SGPT) 17 13 0-55 U/L Alkaline Phosphatase 89 68 40-136 U/L Troponin I < 0.30 <0.30 NG/ML Total Protein 6.8 4.4 L 6.4-8.2 GM/DL Albumin 3.8 3.2 3.2-4.5 GM/DL TSH [place] Testing 1.90 0.35-4.94 UIU/ML Magnesium Level 1.3 L 1.8-2.4 MG/DL B-Type Natriuretic Peptide 232.7 H <100.0 PG/ML Glucometer 153 H 70-110 MG/DL Test 09/28/17 15:55 1/4/18 20:19 09/29/17 05:21 09/29/17 06:10 Range/Units Glucometer 155 H 177 H 152 H 70-110 MG/DL White Blood Count 10.9 4.3-11.0 10^3/uL Red Blood Count 3.47 L 4.35-5.85 10^6/uL Hemoglobin 9.7 L 13.3-17.7 G/DL Hematocrit 27 L 40-54 % Mean Corpuscular Volume 78 L 80-99 FL Mean Corpuscular Hemoglobin 28 25-34 PG Mean Corpuscular Hemoglobin Concent 36 32-36 G/DL Red Cell Distribution Width 15.7 H 10.0-14.5 % Platelet Count 232 130-400 10^3/uL Mean Platelet Volume 11.2 H 7.4-10.4 FL Sodium Level 141 135-145 MMOL/L Potassium Level 3.4 L 3.6-5.0 MMOL/L Chloride Level 105 98-107 MMOL/L Carbon Dioxide Level 27 21-32 MMOL/L Anion Gap 9 5-14 MMOL/L Blood Urea Nitrogen 11 7-18 MG/DL Creatinine 0.81 0.60-1.30 MG/DL Estimat Glomerular Filtration Rate > 60 BUN/Creatinine Ratio 14 Glucose Level 134 H 70-105 MG/DL Calcium Level 8.2 L 8.5-10.1 MG/DL Magnesium Level 2.2 1.8-2.4 MG/DL Total Bilirubin 0.6 0.1-1.0 MG/DL Aspartate Amino Transf (AST/SGOT) 18 5-34 U/L Alanine Aminotransferase (ALT/SGPT) 14 0-55 U/L Alkaline Phosphatase 74 40-136 U/L Total Protein 6.1 L 6.4-8.2 GM/DL Albumin 3.4 3.2-4.5 GM/DL Triglycerides Level 101 <150 MG/DL Cholesterol Level 134 < 200 MG/DL LDL Cholesterol Direct 76 1-129 MG/DL VLDL Cholesterol 20 5-40 MG/DL HDL Cholesterol 34 L 40-60 MG/DL Test 09/29/17 11:10 Range/Units Glucometer 171 H 70-110 MG/DL Radiology Reviewed CXR 09/27/17: IMPRESSION: New opacities within the right mid and lower lung. Findings may relate to pneumonia versus edema. Recommend clinical correlation. Persistent enlargement of the cardiac silhouette, stable from prior examination. Probable central venous catheter overlying the right upper chest. This appears stable. Discharge Instructions to patient/family Please see electronic discharge instructions given to patient. Discharge Medications Reviewed and agree with Discharge Medication list on patient's Discharge Instruction sheet Clinical Quality Measures DVT/VTE Risk/Contraindication: Risk Factor Score Per Nursin RFS Level Per Nursing on Admit: 3=High Copy Copies To 1: NEVILLE Jurado BETHANY N MD Sep 29, 2017 10:56
[2017-09-29] MEDS: UMECLIDINIUM BROMIDE (INCRUSE ELLIPTA) 7'S IH SCH (10:59)
--- NOTE | 2017-09-29 10:59 | Discharge Instructions ---
Discharge [facility] Discharge Medications New, Converted or Re-Newed RX: Transmitted to Pharmacy New Medications: Cefdinir (Cefdinir) 300 Mg Capsule 300 MG PO BID, #14 CAP 0 Refills Furosemide (Furosemide) 20 Mg Tablet 60 MG PO DAILY, #90 TAB 3 Refills Continued Medications: Albuterol Sulfate (Ventolin Hfa) 18 Gm Hfa.aer.ad 2 PUFF INH Q4H PRN for SHORTNESS OF BREATH, INHALER Albuterol Sulfate (Albuterol Sulfate) 1.25 Mg/3 Ml Vial.neb 1.25 MG NEB TID PRN for SHORTNESS OF BREATH, EA Allopurinol (Allopurinol) 300 Mg Tablet 300 MG PO DAILY, TAB Aripiprazole (Aripiprazole) 30 Mg Tablet 30 MG PO DAILY, TAB Aspirin (Aspirin EC) 81 Mg Tablet.dr 81 MG PO DAILY, TAB Atorvastatin Calcium (Atorvastatin Calcium) 20 Mg Tablet 20 MG PO DAILY, TAB LAST FILLED #90 04-14-17 Clonidine HCl (Clonidine HCl) 0.1 Mg Tablet 0.1 MG PO BID, TAB Diazepam (Diazepam) 5 Mg Tablet 5 MG PO TID PRN for ANXIETY, TAB Diclofenac Sodium (Voltaren) 100 Gm Gel..gram. 4 GM TOP Q4H PRN for JOINT PAIN, EA APPLY TO KNEE AND HIP Esomeprazole Magnesium (Esomeprazole Magnesium) 40 Mg Capsule.dr 40 MG PO DAILY, CAP Ezetimibe (Zetia) 10 Mg Tablet 10 MG PO DAILY, TAB LAST FILLED #90 04-14-17 Fluticasone Propionate (Fluticasone Propionate) 16 Gm [place].susp 1 SPRAY NSEACH DAILY, EA Gabapentin (Gabapentin) 300 Mg Capsule 600 MG PO TID, CAP TAKES 2 (300MG) CAPSULES Ibrutinib (Imbruvica) 140 Mg Capsule 420 MG PO HS, CAP TAKES 3 (140MG) CAPSULES Insulin Aspart (Novolog Flexpen) 300 Units/3 Ml Solution 5-20 UNITS SC AC for SLIDING SCALE, EA Insulin Glargine,Hum.rec.anlog (Lantus) 100 Unit/1 Ml Vial 100 UNITS SC BID, EA Liraglutide (Victoza 3-Jair) 0.6 Mg/0.1 Ml Pen.injctr 1.8 MG INJ DAILY, EA Losartan Potassium (Cozaar) 100 Mg Tablet 100 MG PO DAILY, TAB LAST FILLED #90 3-8-17 Metoprolol Succinate (Metoprolol Succinate) 50 Mg Tab.er.24h 50 MG PO BID, TAB LAST FILLED #180 04-14-17 Montelukast Sodium (Montelukast Sodium) 10 Mg Tablet 10 MG PO DAILY, TAB Nortriptyline HCl (Nortriptyline HCl) 25 Mg Capsule 50 MG PO DAILY, CAP TAKES 2 (25MG) CAPSULES Oxycodone HCl/Acetaminophen (Oxycodone-Acetaminophen 10-325) 1 Each Tablet 1 TAB PO Q6H PRN for PAIN-MODERATE, TAB Potassium Chloride (Potassium Chloride) 20 Meq Tab.er.prt 20 MEQ PO BID, TAB Tamsulosin HCl (Tamsulosin HCl) 0.4 Mg Cap.er.24h 0.4 MG PO DAILY, CAP Umeclidinium Alto (Incruse Ellipta) 62.5 Mcg Blst.w.dev 1 PUFF INH DAILY, INHALER Vortioxetine Hydrobromide (Trintellix) 20 Mg Tablet 20 MG PO DAILY, TAB Zolpidem Tartrate (Zolpidem Tartrate) 10 Mg Tablet 10 MG PO HS, TAB Discontinued Medications: Clopidogrel Bisulfate (Clopidogrel) 75 Mg Tablet 75 MG PO DAILY Furosemide (Furosemide) 40 Mg Tablet 40 MG PO DAILY Naproxen (Naproxen) 500 Mg Tablet 500 MG PO Q12H PRN for HEADACHE, TAB Patient Instructions Goal/Follow Up Appt: Follow up with Marquita Rasmussen APRN on 10/09 at 1:20 pm. Return to The Hospital For: Fever, worsening shortness of breath or swelling, inability to keep down antibiotics Activity & Diet Discharge Diet: Low Sodium Diet, ADA Diet, Cardiac Diet Activity as Tolerated: Yes NADINE HARP MD Sep 29, 2017 10:47 am
[2017-09-29 12:00] VITALS: BP 115/64
[2017-09-29] MEDS ORDERED: RELABEL FOR HOME USE MC SCH (12:00)
[2017-09-29] MEDS ORDERED: UMECLIDINIUM BROMIDE (INCRUSE ELLIPTA) 7'S IH SCH (12:00)
[2017-10-02] MEDS ORDERED: RT-ALBUTEROL/IPRATROPIUM 3 ML (DUONEB) VIAL ONE (06:10)
== END 2017-09-29 15:25 | disposition home or self-care (01) | DRG 194 ==
LOC: EDUNIT# 18:14 → ER 18:16 → 4TH 22:15
PROVIDERS: ADMIT Family Medicine; ATTEND Family Medicine
DX: J18.9 Pneumonia, unspecified organism (principal); R09.02 Hypoxemia; J81.1 Chronic pulmonary edema; J44.1 Chronic obstructive pulmonary disease with (acute) exacerbation; C83.00 Small cell B-cell lymphoma, unspecified site; C95.90 Leukemia, unspecified not having achieved remission; E66.2 Morbid (severe) obesity with alveolar hypoventilation; Z68.43 Body mass index [BMI] 50.0-59.9, adult; I50.32 Chronic diastolic (congestive) heart failure; I11.0 Hypertensive heart disease with heart failure; G40.909 Epilepsy, unspecified, not intractable, without status epilepticus; E11.9 Type 2 diabetes mellitus without complications; J45.909 Unspecified asthma, uncomplicated; I25.10 Atherosclerotic heart disease of native coronary artery without angina pectoris; E87.6 Hypokalemia; F17.290 Nicotine dependence, other tobacco product, uncomplicated; E78.00 Pure hypercholesterolemia, unspecified; K21.9 Gastro-esophageal reflux disease without esophagitis; D63.8 Anemia in other chronic diseases classified elsewhere; M54.9 Dorsalgia, unspecified; M19.91 Primary osteoarthritis, unspecified site; F31.9 Bipolar disorder, unspecified; F63.9 Impulse disorder, unspecified; F60.9 Personality disorder, unspecified; G43.109 Migraine with aura, not intractable, without status migrainosus; F10.21 Alcohol dependence, in remission; Z95.5 Presence of coronary angioplasty implant and graft; Z79.4 Long term (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; Z85.828 Personal history of other malignant neoplasm of skin
CPT/HCPCS: 36415; 71045; 71046; 80053; 80061; 81000; 82962; 83605; 83735; 83880; 84443; 84484; 85025; 85027; 85379; 85610; 85730; 87040; 87804; 93005; 93306; 94640; 94644; 94664; 94760; 94761; 96365; 96375

== ENCOUNTER → 2017-10-05 | Outpatient (CLI) | payer MEDICARE ==
[~2017-10-05] MED LIST changes: +ALBU1.25 NEB; +ALBU18HF2 INH; +ALBU2.5V4 NEB; +ALLO300T2 PO; +ARIP30TA10 PO; +ASPI-983 PO; +CEFD300C3 PO; +DIAZ5TAB3 PO; +DICL100G18 TOP; +ESOM40CA52 PO; +FLUT16SP22 NSEACH; +FURO20TA4 PO; +IBRU140C PO; +LOSA100T3 PO; +METO-370 PO; +NAPR500T4 PO; +UMEC62.5 INH; +VORT20TA PO
[2017-10-05 10:05] LABS: BUN/CREATININE RATIO 13; CARBON DIOXIDE 27 MMOL/L (21-32); CHLORIDE 104 MMOL/L (98-107); CREATININE SERUM 0.78 MG/DL (0.60-1.30); GFR ESTIMATED > 60; GLUCOSE 99 MG/DL (70-105); MAGNESIUM 1.8 MG/DL (1.8-2.4); POTASSIUM 3.7 MMOL/L (3.6-5.0); SODIUM 141 MMOL/L (135-145)
== END ==
LOC: LAB 09:29
PROVIDERS: ATTEND Nurse Practitioner Family
DX: E83.42 Hypomagnesemia (principal); E87.6 Hypokalemia
CPT/HCPCS: 36415; 80048; 83735

== ENCOUNTER 2017-10-18 08:42 | Outpatient (RCR) | payer MEDICARE, OTHER ==
[2017-10-05 09:43] LABS: BASOPHILS % (AUTO) 0 % (0-10); EOSINOPHILS # (AUTO) 0.5 10^3/uL (0.0-0.3); EOSINOPHILS % (AUTO) 4 % (0-10); HEMATOCRIT 34 % (40-54); HEMOGLOBIN 10.9 G/DL (13.3-17.7); LYMPHOCYTES # (AUTO) 4.3 X 10^3 (1.0-4.0); LYMPHOCYTES % (AUTO) 38 % (12-44); MEAN CORPUSCULAR HEMOGLOBIN 28 PG (25-34); MEAN CORPUSCULAR HGB CONC 32 G/DL (32-36); MEAN CORPUSCULAR VOLUME 86 FL (80-99); MEAN PLATELET VOLUME 10.5 FL (7.4-10.4); MONOCYTES # (AUTO) 0.9 X 10^3 (0.0-1.0); MONOCYTES % (AUTO) 8 % (0-12); NEUTROPHILS # (AUTO) 5.8 X 10^3 (1.8-7.8); NEUTROPHILS % (AUTO) 50 % (42-75); PLATELET COUNT 299 10^3/uL (130-400); RED CELL DISTRIBUTION WIDTH 14.9 % (10.0-14.5); WHITE BLOOD COUNT 11.5 10^3/uL (4.3-11.0)
[2017-10-18 09:21] LABS: BASOPHILS % (AUTO) 0 % (0-10); EOSINOPHILS # (AUTO) 0.4 10^3/uL (0.0-0.3); EOSINOPHILS % (AUTO) 4 % (0-10); HEMATOCRIT 35 % (40-54); HEMOGLOBIN 11.1 G/DL (13.3-17.7); LYMPHOCYTES # (AUTO) 3.8 X 10^3 (1.0-4.0); LYMPHOCYTES % (AUTO) 38 % (12-44); MEAN CORPUSCULAR HEMOGLOBIN 27 PG (25-34); MEAN CORPUSCULAR HGB CONC 32 G/DL (32-36); MEAN CORPUSCULAR VOLUME 85 FL (80-99); MEAN PLATELET VOLUME 11.4 FL (7.4-10.4); MONOCYTES # (AUTO) 0.8 X 10^3 (0.0-1.0); MONOCYTES % (AUTO) 8 % (0-12); NEUTROPHILS # (AUTO) 5.1 X 10^3 (1.8-7.8); NEUTROPHILS % (AUTO) 50 % (42-75); PLATELET COUNT 273 10^3/uL (130-400); RED BLOOD COUNT 4.09 10^6/uL (4.35-5.85); WHITE BLOOD COUNT 10.2 10^3/uL (4.3-11.0)
== END 2017-10-30 16:03 | disposition home or self-care (01) ==
LOC: ONC 08:42
PROVIDERS: ATTEND Internal Medicine Hematology & Oncology
DX: C91.10 Chronic lymphocytic leukemia of B-cell type not having achieved remission (principal); I25.10 Atherosclerotic heart disease of native coronary artery without angina pectoris; E87.6 Hypokalemia; I10 Essential (primary) hypertension; E78.5 Hyperlipidemia, unspecified; E11.9 Type 2 diabetes mellitus without complications; J44.9 Chronic obstructive pulmonary disease, unspecified; G47.30 Sleep apnea, unspecified; E66.01 Morbid (severe) obesity due to excess calories; Z68.43 Body mass index [BMI] 50.0-59.9, adult; Z79.899 Other long term (current) drug therapy; Z95.5 Presence of coronary angioplasty implant and graft
CPT/HCPCS: 36591; 85025

== ENCOUNTER 2017-11-01 16:40 | Observation (INO) | payer MEDICARE ==
[~2017-11-01] VITALS: Ht 170.2 cm; Wt 169.2 kg
[~2017-11-01 16:40] MED LIST changes: -FLUT16SP22 NSEACH
[2017-11-01] MEDS ORDERED: RT-ALBUTEROL SULF 2.5 MG/3 ML PRE-MIX VIAL INH NR (16:45)
[2017-11-01] MEDS ORDERED: PATIENT MAY USE OWN MEDS, ALL PO SCH (16:45)
[2017-11-01] MEDS ORDERED: CALCIUM GLUCONATE 10% INJ 4.65 MEQ in NS (IVPB) 50 ML IV NR (16:45)
[2017-11-01] MEDS ORDERED: DEXTROSE 50% 50 ML (IMS) SYR IV NR (16:45)
[2017-11-01 17:01] VITALS: BP 169/71
--- NOTE | 2017-11-01 17:24 | History & Physicial ---
History of Present Illness History of Present Illness Reason for visit/HPI Michele Atwood is a 52-year-old male who presented to hematology clinic today for routine follow-up of his CLL/SLL. He has been using ibrutinib to control his symptomatic disease. He was recently admitted to the hospital from Sep 27 to Sep 29, 2016 for hypoxic respiratory failure, was treated empirically for pneumonia and CHF, and was discharged with home oxygen. He has had no new complaints since discharge. He has a number of chronic symptoms including shortness of breath, edema, and chronic diarrhea from ibrutinib that is controlled with imodium. These symptoms have not changed. While in clinic, his potassium lab came back abnormally high at 6.5. No hemolysis was noted in the sample. Repeat potassium was 7.5. Date of Admission 11/01/2017 Date Seen by Provider: Nov 01, 2017 Time Seen by Provider: 13:15 Attending Physician Chay Stovall MD Admitting Physician Chay Stovall MD Consult Allergies and Home Medications Allergies Coded Allergies: NKANo Known Allergies (Verified Allergy, Unknown, 11/01/17) Home Medications Albuterol Sulfate 18 Gm Hfa.aer.ad, 2 PUFF INH Q4H PRN for SHORTNESS OF BREATH, (Reported) Albuterol Sulfate 1.25 Mg/3 Ml Vial.neb, 1.25 MG NEB TID PRN for SHORTNESS OF BREATH, (Reported) Allopurinol 300 Mg Tablet, 300 MG PO DAILY, (Reported) Aripiprazole 30 Mg Tablet, 30 MG PO DAILY, (Reported) Aspirin 81 Mg Tablet.dr, 81 MG PO DAILY, (Reported) Atorvastatin Calcium 20 Mg Tablet, 20 MG PO DAILY, (Reported) LAST FILLED #90 04-14-17 Cefdinir 300 Mg Capsule, 300 MG PO BID, #14 Ref 0 Prescribed by: NADINE HARP on 09/29/17 1049 Clonidine HCl 0.1 Mg Tablet, 0.1 MG PO BID, (Reported) Diazepam 5 Mg Tablet, 5 MG PO TID PRN for ANXIETY, (Reported) Diclofenac Sodium 100 Gm Gel..gram., 4 GM TOP Q4H PRN for JOINT PAIN, (Reported) APPLY TO KNEE AND HIP Esomeprazole Magnesium 40 Mg Capsule.dr, 40 MG PO DAILY, (Reported) Ezetimibe 10 Mg Tablet, 10 MG PO DAILY, (Reported) LAST FILLED #90 04-14-17 Fluticasone Propionate 16 Gm [place].susp, 1 SPRAY NSEACH DAILY, (Reported) Furosemide 20 Mg Tablet, 60 MG PO DAILY, #90 Ref 3 Prescribed by: JANICE MURDOCK on 09/29/17 1017 Gabapentin 300 Mg Capsule, 600 MG PO TID, (Reported) TAKES 2 (300MG) CAPSULES Ibrutinib 140 Mg Capsule, 420 MG PO HS, (Reported) TAKES 3 (140MG) CAPSULES Insulin Aspart 300 Units/3 Ml Solution, 5-20 UNITS SC AC, (Reported) Insulin Glargine,Hum.rec.anlog 100 Unit/1 Ml Vial, 100 UNITS SC BID, (Reported) Liraglutide 0.6 Mg/0.1 Ml Pen.injctr, 1.8 MG INJ DAILY, (Reported) Losartan Potassium 100 Mg Tablet, 100 MG PO DAILY, (Reported) LAST FILLED #90 11-30-16 Metoprolol Succinate 50 Mg Tab.er.24h, 50 MG PO BID, (Reported) LAST FILLED #180 04-14-17 Montelukast Sodium 10 Mg Tablet, 10 MG PO DAILY, (Reported) Nortriptyline HCl 25 Mg Capsule, 50 MG PO DAILY, (Reported) TAKES 2 (25MG) CAPSULES Oxycodone HCl/Acetaminophen 1 Each Tablet, 1 TAB PO Q6H PRN for PAIN-MODERATE, ( Reported) Potassium Chloride 20 Meq Tab.er.prt, 20 MEQ PO BID, (Reported) Tamsulosin HCl 0.4 Mg Cap.er.24h, 0.4 MG PO DAILY, (Reported) Umeclidinium [place] 62.5 Mcg Blst.w.dev, 1 PUFF INH DAILY, (Reported) Vortioxetine Hydrobromide 20 Mg Tablet, 20 MG PO DAILY, (Reported) Zolpidem Tartrate 10 Mg Tablet, 10 MG PO HS, (Reported) Past Fvftcff-Wswvvk-Dlfdch Hx Patient Social History Marrital Status: Type Used: Cigars Recent Hopitalizations: Yes Immunizations Up To Date Tetanus Booster (TDap): Unknown Date of Pneumonia Vaccine: Aug 19, 2014 Date of Influenza Vaccine: Jul 08, 2016 Seasonal Allergies Seasonal Allergies: No Surgeries Yes (SKIN CA REMOVALS, RT KNEE, RT WRIST, 2 HEART CATHS, epididymectomy) Coronary Stent, Orthopedic Respiratory Yes Currently Using CPAP: Yes Cardiovascular Yes (heart cath x2-stents) Coronary Artery Disease, High Cholesterol, Hypertension Neurological Yes Seizure Disorder Reproductive System Hx Reproductive Disorders: No Sexually Transmitted Disease: No HIV/AIDS: No Genitourinary Renal Failure, UTI-Chronic Gastrointestinal Yes Gastroesophageal Reflux Musculoskeletal Yes Arthritis, Chronic Back Pain Endocrine History of Endocrine Disorders: Yes (obesity) Endocrine Disorders: Diabetes, Insulin dep HEENT History of HEENT Disorders: No Cancer Yes (B-cell lymphoma) Leukemia, Skin Psychosocial History of Psychiatric Problem: Yes Behavioral Health Disorders: Bipolar Integumentary History of Skin or Integumenta: No Blood Transfusions History of Blood Disorders: No Adverse Reaction to a Blood Tr: No Family Medical History Significant Family History: Cancer, Diabetes, Hypertension Family Hx: Alcoholism G8 BROTHER Arthritis 19 FATHER Cataracts 19 FATHER Completed stroke 19 MOTHER Deafness or hearing loss 19 FATHER Diabetes mellitus 19 MOTHER Headache disorder 19 FATHER 19 MOTHER G8 BROTHER G8 SISTER Hypercholesterolemia 19 FATHER Hypertension 19 FATHER Prostate cancer G8 BROTHER Psychosocial problem 19 MOTHER Respiratory disorder 19 FATHER 19 MOTHER Visual disorder 19 MOTHER No Family History of: AIDS Abdominal aortic aneurysm Krishna's disease Alzheimer's disease Aphasia Asthma Cancer of mouth Cardiovascular disease Colon cancer Congenital disease Congenital heart disease Coronary thrombosis Cystic fibrosis Dementia Drug abuse Dysphasia Fibrocystic disease of breast Gastroenteritis Glaucoma Infertility Kidney disease Myocardial infarction Neoplasm Not obtainable due to adoption Osteoporosis Parkinson's disease Seizure disorder Severe allergy Thyroid disease Tuberculosis Constitutional: No chills, diaphoresis, No fever EENTM: No vision loss, No throat pain Respiratory: No cough, dyspnea on exertion, No hemoptysis, short of breath Cardiovascular: edema Gastrointestinal: No abdominal pain, No constipation, diarrhea, No loss of appetite, No melena, No nausea, No vomiting Genitourinary: No dysuria, No hematuria Musculoskeletal: joint pain, muscle pain Skin: No rash Psychiatric/Neurological: Denies Headache, Denies Numbness, Denies Tingling, Denies Weakness Physical Exam Vital Signs Vital Signs - First Documented 11/01/17 17:01 Temp 97.9 Pulse 73 Resp 18 B/P (MAP) 169/71 (103) Pulse Ox 95 O2 Delivery Room Air Capillary Refill : General Appearance: No Apparent Distress, Chronically ill, Obese Eyes: Bilateral Eye Normal Inspection, Bilateral Eye PERRL, Bilateral Eye EOMI HEENT: Pharynx Normal, Moist Mucous Membranes Neck: Limited Range of Motion, Lymphadenopathy (L), Lymphadenopathy (R) Respiratory: Chest Non Tender, No Accessory Muscle Use, No Respiratory Distress , Decreased Breath Sounds, No Wheezing, Other (on supplemental O2 by nasal cannula) Cardiovascular: Regular Rate, Rhythm, Normal Peripheral Pulses Gastrointestinal: Normal Bowel Sounds, No Pulsatile Mass, Non Tender, Soft Rectal: Deferred Extremity: Normal Inspection, Pedal Edema, Swelling (2+ pitting edema) Neurologic/Psychiatric: Alert, Oriented x3, No Motor/Sensory Deficits, Normal Mood/Affect Skin: Warm/Dry, No Rash Assessment/Plan Assessment and Plan 1. Severe hyperkalemia. Etiology is very unclear. Patient does not have worsening renal function, diet has not changed, and he has been perpetually hypokalemic in the past. Patient has only taken one day of his prescribed daily potassium in the last week. --admit for observation --stop home potassium and losartan --calcium gluconate x1, kayexalate q6h x2, high dose albuterol x1, insulin 10U with D50W x1 --NS at 75 ml/hr because patient insisted not to take furosemide tonight --check potassium at midnight and in the morning --monitor on telemetry 2. SLL/CLL symptomatic. Tolerating ibrutinib 420 mg daily with diarrhea controlled by OTC medications. White count is mildly elevated but normal differential and otherwise stable. Hgb is only mildly decreased, platelets are normal. --Continue ibrutinib. 3. Other chronic illnesses include: CAD s/p stent to the proximal LAD on 2013, HTN, HLP on statin therapy, DM II, hyperuricemia, Morbid Obesity with BMI of 57, COPD, Sleep apnea on CPAP, Intolerance to KRISTI inhibitors secondary to cough. --Continue other home meds 4. Lovenox for DVT PPX 5. Regular diet 6. Activity as tolerated 7. Disposition: Observation. Full code. If hyperkalemia resolves tomorrow, will discharge. Problems: CHAY STOVALL MD Nov 01, 2017 17:24
[2017-11-01] MEDS ORDERED: inSUlin (REGULAR) HUMAN 1 UNIT/0.01 ML (CHARGE PER UNIT) SC NR (18:24)
[2017-11-01] MEDS ORDERED: ENOXAPARIN 40 MG/0.4 ML (LOVENOX) SYR SC SCH (18:30)
[2017-11-01] MEDS: NS IV 1000 ML 1,000 ML IV SCH (18:34)
[2017-11-01] MEDS: SOD POLYSTERENE 15 GM/60 ML (KAYEXALATE) UNIT DOSE PO SCH ×2 (18:42→23:32)
[2017-11-01 19:54] VITALS: BP 182/81
[2017-11-02 00:27] LABS: BUN/CREATININE RATIO 16; CALCIUM 9.1 MG/DL (8.5-10.1); CARBON DIOXIDE 21 MMOL/L (21-32); CHLORIDE 114 MMOL/L (98-107); CREATININE SERUM 0.83 MG/DL (0.60-1.30); GFR ESTIMATED > 60; GLUCOSE 74 MG/DL (70-105); POTASSIUM 5.8 MMOL/L (3.6-5.0); SODIUM 143 MMOL/L (135-145)
[2017-11-02 00:43] VITALS: BP 169/79
[2017-11-02 04:05] VITALS: BP 162/72
[2017-11-02] MEDS: NS IV 1000 ML 1,000 ML IV SCH (05:46)
[2017-11-02 06:29] LABS: BUN/CREATININE RATIO 14; CALCIUM 8.6 MG/DL (8.5-10.1); CARBON DIOXIDE 23 MMOL/L (21-32); CHLORIDE 113 MMOL/L (98-107); CREATININE SERUM 0.78 MG/DL (0.60-1.30); GFR ESTIMATED > 60; GLUCOSE 82 MG/DL (70-105); POTASSIUM 4.5 MMOL/L (3.6-5.0); SODIUM 141 MMOL/L (135-145)
[2017-11-02 08:00] VITALS: BP 185/64
[2017-11-02] MEDS ORDERED: FURO20TA4 PO (08:39)
[2017-11-02] MEDS ORDERED: NAPR500T4 PO (08:39)
[2017-11-02] MEDS ORDERED: INFLUENZA TRIvalent 2017-2018 0.5 ML/45 MCG SYR IM ONE (09:30)
[2017-11-02 11:26] LABS: BUN/CREATININE RATIO 12; CARBON DIOXIDE 24 MMOL/L (21-32); CHLORIDE 108 MMOL/L (98-107); CREATININE SERUM 0.75 MG/DL (0.60-1.30); GFR ESTIMATED > 60; GLUCOSE 82 MG/DL (70-105); POTASSIUM 4.2 MMOL/L (3.6-5.0); SODIUM 140 MMOL/L (135-145)
[2017-11-02 12:00] VITALS: BP 195/81
--- NOTE | 2017-11-02 13:12 | Discharge Instructions ---
Discharge Instructions Patient Instructions Patient Instructions Please follow up with your primary care doctor about your blood pressure medicine losartan which you should stop taking for now. Activity & Diet Discharge Diet: No Restrictions Activity as Tolerated: Yes ODALIS STOVALL MD Nov 02, 2017 13:12
--- NOTE | 2017-11-02 13:20 | Oncology Progress Note ---
Subjective Date Seen by Provider: Nov 02, 2017 Time Seen by Provider: 13:00 Subjective/Events-last exam Patient did well overnight except for diarrhea induced by kayexalate. He denied any increased shortness of breath, chest pain, palpitations, abdominal pain. No recorded fevers and patient denied chills or night sweats. Review of Systems General: No Chills, No Night Sweats, No Fatigue HEENT: No Sore Throat Pulmonary: Dyspnea, No Cough Cardiovascular: Edema, No: Chest Pain, Palpitations Gastrointestinal: Diarrhea, No: Nausea, Vomiting, Abdominal Pain Genitourinary: No Dysuria Musculoskeletal: No: back pain Neurological: No: Weakness, Numbness, Confusion Data Review Labs Laboratory Tests 11/01/17 23:55 11/02/17 06:00 11/02/17 10:55 Laboratory Tests 11/01/17 17:51: Glucometer 67L 11/01/17 23:55: Potassium Level 5.8H, Chloride Level 114H 11/02/17 06:00: Chloride Level 113H 11/02/17 10:55: Chloride Level 108H Physical Exam Vital Signs Vital Signs - First Documented 11/01/17 11/01/17 17:01 18:53 Temp 97.9 Pulse 73 Resp 18 B/P (MAP) 169/71 (103) Pulse Ox 95 O2 Delivery Room Air O2 Flow Rate 2.00 Capillary Refill : General Appearance: No Apparent Distress, WD/WN, Obese Eyes: Bilateral Eye Normal Inspection, Bilateral Eye PERRL, Bilateral Eye EOMI HEENT: PERRL/EOMI Respiratory: Chest Non Tender, Lungs Clear, Normal Breath Sounds Cardiovascular: Regular Rate, Rhythm Gastrointestinal: Normal Bowel Sounds, Non Tender, Soft Back: Normal Inspection Extremity: Pedal Edema, Swelling Neurologic/Psychiatric: Alert, Oriented x3, transition of care specialist II-XII Norm as Tested Skin: No Rash Impression & Plan Impression & Plan 1. Severe hyperkalemia. Etiology is unclear. Now resolved with acute therapies , primarily kayexalate. 2. 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 3. Other chronic illnesses include: CAD s/p stent to the proximal LAD on 2013, HTN, HLP on statin therapy, DM II, hyperuricemia, Morbid Obesity with BMI of 57, COPD, Sleep apnea on CPAP, Intolerance to KRISTI inhibitors secondary to cough. --Continue other home meds 4. Lovenox for DVT PPX 5. Regular diet 6. Activity as tolerated 7. Disposition: Discharge to home with follow up in oncology clinic Diagnosis Hyperkalemia Clinical Quality Measures DVT/VTE Risk/Contraindication: Risk Factor Score Per Nursin RFS Level Per Nursing on Admit: 4+=Very High ODALIS STOVALL MD Nov 02, 2017 13:20
[2017-11-02 15:05] VITALS: BP 195/81
--- NOTE | 2017-11-03 17:18 | Discharge Summary ---
Diagnosis/Chief Complaint Date of Admission Nov 01, 2017 at 17:20 Date of Discharge Nov 02, 2017 at 15:05 Discharge Date: Nov 02, 2017 Admission Diagnosis Admission Diagnosis 1. Severe hyperkalemia. Etiology is very unclear. Patient does not have worsening renal function, diet has not changed, and he has been perpetually hypokalemic in the past. Patient has only taken one day of his prescribed daily potassium in the last week. 2. SLL/CLL symptomatic. Tolerating ibrutinib 420 mg daily with diarrhea controlled by OTC medications. White count is mildly elevated but normal differential and otherwise stable. Hgb is only mildly decreased, platelets are normal. 3. Other chronic illnesses include: CAD s/p stent to the proximal LAD on 2013, HTN, HLP on statin therapy, DM II, hyperuricemia, Morbid Obesity with BMI of 57, COPD, Sleep apnea on CPAP, Intolerance to KRISTI inhibitors secondary to cough. Discharge Diagnosis Hyperkalemia Reason Hospital Visit Michele Atwood is a 52-year-old male who presented to hematology clinic today for routine follow-up of his CLL/SLL. He has been using ibrutinib to control his symptomatic disease. He was recently admitted to the hospital from Sep 27 to Sep 29, 2016 for hypoxic respiratory failure, was treated empirically for pneumonia and CHF, and was discharged with home oxygen. He has had no new complaints since discharge. He has a number of chronic symptoms including shortness of breath, edema, and chronic diarrhea from ibrutinib that is controlled with imodium. These symptoms have not changed. While in clinic, his potassium lab came back abnormally high at 6.5. No hemolysis was noted in the sample. Repeat potassium was 7.5. Discharge Summary Hospital Course Hospital Course Patient was admitted from oncology clinic to inpatient telemetry for management of hyperkalemia of unclear etiology. His other medical issues were stable and unchanged. He was given IV calcium gluconate, high dose albuterol breathing treatment, insulin with D50W, and kayexalate every 6 hours for two doses. He was also started on a low rate of normal saline. Home supplemental potassium was held. Other home medications were given to him without changes. Potassium was checked at midnight and the next morning twice. Each time there was progressive decline in potassium to normal range. Patient remained asymptomatic and event free throughout his hospital stay. He was discharged in stable condition to home. Labs Laboratory Tests 2/7/18 17:51: Glucometer 67L 11/01/17 23:55: Potassium Level 5.8H, Chloride Level 114H 11/02/17 06:00: Chloride Level 113H 11/02/17 10:55: Chloride Level 108H Procedures None. Discharge Physical Examination Allergies: Coded Allergies: NKANo Known Allergies (Verified Allergy, Unknown, 11/01/17) Vitals & I&Os Vital Signs Date Time Temp Pulse Resp B/P (MAP) Pulse Ox O2 Delivery O2 Flow Rate FiO2 11/02/17 15:05 67 18 195/81 98 Nasal Cannula 2.00 11/02/17 12:00 97.8 General Appearance: Alert, Oriented X3, Cooperative, No Acute Distress HEENT: Atraumatic, PERRLA, EOMI, Mucous Memb Moist/[place] Respiratory: Clear to Auscultation Cardiovascular: Regular Rate, No Murmurs Abdominal: Normal Bowel Sounds, Soft, No Tenderness Extremities: No Edema, Normal Pulses, No Tenderness/Swelling Skin: No Rashes Neuro: Normal Speech, Cranial Nerves 3-12 NL Psych/Mental Status: Mental Status NL, Mood NL Discharge Home Medications Reviewed and agree with Discharge Medication list on patient's Discharge Instruction sheet Instructions to Patient/Family Please see electronic discharge instructions given to patient. Clinical Quality Measures DVT/VTE Risk/Contraindication: Risk Factor Score Per Nursin RFS Level Per Nursing on Admit: 4+=Very High ODALIS STOVALL MD Nov 03, 2017 17:18
== END 2017-11-02 15:05 | disposition home or self-care (01) ==
LOC: 4TH 17:05 → UNDOADMOB 17:05 → 4TH 17:20 → UNDODISOB 11-02 15:05
PROVIDERS: ADMIT Internal Medicine Hematology & Oncology; ATTEND Internal Medicine Hematology & Oncology
DX: E87.5 Hyperkalemia (principal); C91.10 Chronic lymphocytic leukemia of B-cell type not having achieved remission; I25.10 Atherosclerotic heart disease of native coronary artery without angina pectoris; Z95.5 Presence of coronary angioplasty implant and graft; E11.9 Type 2 diabetes mellitus without complications; E66.01 Morbid (severe) obesity due to excess calories; J44.9 Chronic obstructive pulmonary disease, unspecified; G47.33 Obstructive sleep apnea (adult) (pediatric); E79.0 Hyperuricemia without signs of inflammatory arthritis and tophaceous disease; Z68.43 Body mass index [BMI] 50.0-59.9, adult; E78.00 Pure hypercholesterolemia, unspecified; Z79.4 Long term (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; Z79.899 Other long term (current) drug therapy; K21.9 Gastro-esophageal reflux disease without esophagitis; F31.9 Bipolar disorder, unspecified; Z23 Encounter for immunization
CPT/HCPCS: 36415; 80048; 82962

== ENCOUNTER 2018-01-25 10:40 | Outpatient (RCR) | payer MEDICARE, OTHER ==
[2017-11-01 13:20] LABS: BASOPHILS # (AUTO) 0.1 10^3/uL (0.0-0.1); BASOPHILS % (AUTO) 0 % (0-10); EOSINOPHILS # (AUTO) 0.2 10^3/uL (0.0-0.3); EOSINOPHILS % (AUTO) 2 % (0-10); HEMATOCRIT 35 % (40-54); HEMOGLOBIN 11.1 G/DL (13.3-17.7); LYMPHOCYTES # (AUTO) 3.2 X 10^3 (1.0-4.0); LYMPHOCYTES % (AUTO) 27 % (12-44); MEAN CORPUSCULAR HEMOGLOBIN 27 PG (25-34); MEAN CORPUSCULAR HGB CONC 32 G/DL (32-36); MEAN CORPUSCULAR VOLUME 85 FL (80-99); MEAN PLATELET VOLUME 12.1 FL (7.4-10.4); MONOCYTES % (AUTO) 8 % (0-12); NEUTROPHILS # (AUTO) 7.5 X 10^3 (1.8-7.8); NEUTROPHILS % (AUTO) 63 % (42-75); PLATELET COUNT 229 10^3/uL (130-400); RED BLOOD COUNT 4.12 10^6/uL (4.35-5.85); RED CELL DISTRIBUTION WIDTH 15.2 % (10.0-14.5); WHITE BLOOD COUNT 11.9 10^3/uL (4.3-11.0)
[2017-11-01 13:37] LABS: ALANINE AMINOTRANSFERASE 15 U/L (0-55); ALKALINE PHOSPHATASE 80 U/L (40-136); BILIRUBIN,TOTAL 0.5 MG/DL (0.1-1.0); BUN/CREATININE RATIO 18; CALCIUM 8.8 MG/DL (8.5-10.1); CARBON DIOXIDE 24 MMOL/L (21-32); CHLORIDE 113 MMOL/L (98-107); CREATININE SERUM 0.82 MG/DL (0.60-1.30); GFR ESTIMATED > 60; SODIUM 144 MMOL/L (135-145); TOTAL PROTEIN 7.3 GM/DL (6.4-8.2)
[2017-11-01 13:40] LABS: GLUCOSE 58 MG/DL (70-105); POTASSIUM 6.5 MMOL/L (3.6-5.0)
[2017-11-30 09:54] LABS: BASOPHILS % (AUTO) 0 % (0-10); EOSINOPHILS # (AUTO) 0.6 10^3/uL (0.0-0.3); EOSINOPHILS % (AUTO) 6 % (0-10); HEMATOCRIT 36 % (40-54); LYMPHOCYTES # (AUTO) 3.7 X 10^3 (1.0-4.0); LYMPHOCYTES % (AUTO) 37 % (12-44); MEAN CORPUSCULAR HEMOGLOBIN 26 PG (25-34); MEAN CORPUSCULAR HGB CONC 31 G/DL (32-36); MEAN CORPUSCULAR VOLUME 85 FL (80-99); MEAN PLATELET VOLUME 11.5 FL (7.4-10.4); MONOCYTES % (AUTO) 10 % (0-12); NEUTROPHILS # (AUTO) 4.6 X 10^3 (1.8-7.8); NEUTROPHILS % (AUTO) 47 % (42-75); PLATELET COUNT 270 10^3/uL (130-400); RED BLOOD COUNT 4.23 10^6/uL (4.35-5.85); RED CELL DISTRIBUTION WIDTH 15.4 % (10.0-14.5); WHITE BLOOD COUNT 9.9 10^3/uL (4.3-11.0)
[2017-12-27 13:36] LABS: BASOPHILS % (AUTO) 0 % (0-10); EOSINOPHILS # (AUTO) 0.5 10^3/uL (0.0-0.3); EOSINOPHILS % (AUTO) 5 % (0-10); HEMATOCRIT 32 % (40-54); HEMOGLOBIN 10.1 G/DL (13.3-17.7); LYMPHOCYTES # (AUTO) 3.1 X 10^3 (1.0-4.0); LYMPHOCYTES % (AUTO) 31 % (12-44); MEAN CORPUSCULAR HEMOGLOBIN 27 PG (25-34); MEAN CORPUSCULAR HGB CONC 31 G/DL (32-36); MEAN CORPUSCULAR VOLUME 85 FL (80-99); MEAN PLATELET VOLUME 12.1 FL (7.4-10.4); MONOCYTES # (AUTO) 0.8 X 10^3 (0.0-1.0); MONOCYTES % (AUTO) 8 % (0-12); NEUTROPHILS # (AUTO) 5.6 X 10^3 (1.8-7.8); NEUTROPHILS % (AUTO) 55 % (42-75); PLATELET COUNT 190 10^3/uL (130-400); RED BLOOD COUNT 3.81 10^6/uL (4.35-5.85); WHITE BLOOD COUNT 10.1 10^3/uL (4.3-11.0)
[2017-12-27 13:57] LABS: ALANINE AMINOTRANSFERASE 18 U/L (0-55); ALBUMIN 3.8 GM/DL (3.2-4.5); ALKALINE PHOSPHATASE 60 U/L (40-136); BILIRUBIN,TOTAL 0.3 MG/DL (0.1-1.0); BUN/CREATININE RATIO 17; CALCIUM 8.5 MG/DL (8.5-10.1); CARBON DIOXIDE 31 MMOL/L (21-32); CHLORIDE 102 MMOL/L (98-107); CREATININE SERUM 0.84 MG/DL (0.60-1.30); GFR ESTIMATED > 60; GLUCOSE 110 MG/DL (70-105); POTASSIUM 3.5 MMOL/L (3.6-5.0); SODIUM 141 MMOL/L (135-145); TOTAL PROTEIN 6.3 GM/DL (6.4-8.2); URIC ACID 8.4 MG/DL (2.6-7.2)
[~2018-01-25 10:40] MED LIST changes: +METF10002 PO; +NAPR-915 PO; -NAPR500T4 PO
[2018-01-25 11:39] LABS: BASOPHILS % (AUTO) 0 % (0-10); EOSINOPHILS # (AUTO) 0.4 10^3/uL (0.0-0.3); EOSINOPHILS % (AUTO) 4 % (0-10); HEMATOCRIT 38 % (40-54); HEMOGLOBIN 11.7 G/DL (13.3-17.7); LYMPHOCYTES # (AUTO) 3.4 X 10^3 (1.0-4.0); LYMPHOCYTES % (AUTO) 34 % (12-44); MEAN CORPUSCULAR HEMOGLOBIN 26 PG (25-34); MEAN CORPUSCULAR HGB CONC 31 G/DL (32-36); MEAN CORPUSCULAR VOLUME 82 FL (80-99); MEAN PLATELET VOLUME 12.4 FL (7.4-10.4); MONOCYTES # (AUTO) 0.9 X 10^3 (0.0-1.0); MONOCYTES % (AUTO) 9 % (0-12); NEUTROPHILS # (AUTO) 5.4 X 10^3 (1.8-7.8); NEUTROPHILS % (AUTO) 53 % (42-75); PLATELET COUNT 233 10^3/uL (130-400); RED BLOOD COUNT 4.58 10^6/uL (4.35-5.85); RED CELL DISTRIBUTION WIDTH 15.5 % (10.0-14.5); WHITE BLOOD COUNT 10.1 10^3/uL (4.3-11.0)
== END 2018-01-30 | disposition home or self-care (01) ==
LOC: ONC 10:40
PROVIDERS: ATTEND Internal Medicine Hematology & Oncology
DX: C91.10 Chronic lymphocytic leukemia of B-cell type not having achieved remission (principal); I25.10 Atherosclerotic heart disease of native coronary artery without angina pectoris; E87.6 Hypokalemia; I10 Essential (primary) hypertension; E78.5 Hyperlipidemia, unspecified; E11.9 Type 2 diabetes mellitus without complications; J44.9 Chronic obstructive pulmonary disease, unspecified; G47.30 Sleep apnea, unspecified; E66.01 Morbid (severe) obesity due to excess calories; Z68.43 Body mass index [BMI] 50.0-59.9, adult; Z79.899 Other long term (current) drug therapy; Z95.5 Presence of coronary angioplasty implant and graft
CPT/HCPCS: 36591; 80053; 83615; 84132; 84550; 85025

== ENCOUNTER 2018-06-13 13:17 | Outpatient (RCR) | payer MEDICARE, OTHER ==
[~2018-06-13 13:17] MED LIST changes: +CLON1TAB13 PO; -CLON1TAB3 PO; -LOSA50TA36 PO; +LOSA50TA7 PO; +METF-399 PO; -METF10002 PO
[2018-06-13 13:50] LABS: BASOPHILS # (AUTO) 0.1 10^3/uL (0.0-0.1); BASOPHILS % (AUTO) 1 % (0-10); EOSINOPHILS # (AUTO) 0.4 10^3/uL (0.0-0.3); EOSINOPHILS % (AUTO) 5 % (0-10); HEMATOCRIT 32 % (40-54); HEMOGLOBIN 9.6 G/DL (13.3-17.7); LYMPHOCYTES # (AUTO) 2.5 X 10^3 (1.0-4.0); LYMPHOCYTES % (AUTO) 26 % (12-44); MEAN CORPUSCULAR HEMOGLOBIN 24 PG (25-34); MEAN CORPUSCULAR HGB CONC 30 G/DL (32-36); MEAN CORPUSCULAR VOLUME 79 FL (80-99); MEAN PLATELET VOLUME 10.7 FL (7.4-10.4); MONOCYTES # (AUTO) 0.9 X 10^3 (0.0-1.0); MONOCYTES % (AUTO) 9 % (0-12); NEUTROPHILS % (AUTO) 61 % (42-75); PLATELET COUNT 279 10^3/uL (130-400); RED BLOOD COUNT 4.07 10^6/uL (4.35-5.85); RED CELL DISTRIBUTION WIDTH 16.8 % (10.0-14.5); WHITE BLOOD COUNT 9.8 10^3/uL (4.3-11.0)
[2018-06-13 14:08] LABS: ALANINE AMINOTRANSFERASE 14 U/L (0-55); ALBUMIN 3.7 GM/DL (3.2-4.5); ALKALINE PHOSPHATASE 72 U/L (40-136); BILIRUBIN,TOTAL 0.3 MG/DL (0.1-1.0); BUN/CREATININE RATIO 16; CALCIUM 8.6 MG/DL (8.5-10.1); CARBON DIOXIDE 32 MMOL/L (21-32); CHLORIDE 105 MMOL/L (98-107); CREATININE SERUM 0.94 MG/DL (0.60-1.30); GFR ESTIMATED > 60; GLUCOSE 165 MG/DL (70-105); POTASSIUM 3.5 MMOL/L (3.6-5.0); SODIUM 143 MMOL/L (135-145); TOTAL PROTEIN 6.4 GM/DL (6.4-8.2); URIC ACID 5.7 MG/DL (2.6-7.2)
== END 2018-06-24 | disposition home or self-care (01) ==
LOC: ONC 13:17
PROVIDERS: ATTEND Internal Medicine Hematology & Oncology
DX: C91.10 Chronic lymphocytic leukemia of B-cell type not having achieved remission (principal); I25.10 Atherosclerotic heart disease of native coronary artery without angina pectoris; E87.6 Hypokalemia; I10 Essential (primary) hypertension; E78.5 Hyperlipidemia, unspecified; E11.9 Type 2 diabetes mellitus without complications; J44.9 Chronic obstructive pulmonary disease, unspecified; G47.30 Sleep apnea, unspecified; Z79.899 Other long term (current) drug therapy; E66.01 Morbid (severe) obesity due to excess calories; Z68.43 Body mass index [BMI] 50.0-59.9, adult; Z95.5 Presence of coronary angioplasty implant and graft
CPT/HCPCS: 36591; 80053; 82728; 83540; 83615; 84550; 85025

== ENCOUNTER → 2018-07-24 | Outpatient (CLI) | payer MEDICARE ==
[~2018-07-24] MED LIST changes: +CATHETER FLUSH 10 ML SYR IV PRN; +ONDA8TAB6 PO; +POTA-51 PO; +REGADENOSON 0.4 MG/5 ML SYR (LEXISCAN) IV ONE
--- NOTE | 2018-07-24 20:35 | STRESS TEST ---
DATE OF SERVICE: 07/24/2018 RESTING AND POST REGADENOSON TECHNETIUM-99M TETROFOSMIN SPECT CT IMAGING ORDERING PHYSICIAN: RU Ignacio PRIMARY CARE PHYSICIAN: [facility]. CLINICAL DIAGNOSES: Coronary artery disease, chest discomfort, hypertension. Baseline images were carried out after injection of 10.45 mCi of technetium-99m tetrofosmin. This was followed by 0.4 mg of regadenoson and 28.3 mCi of technetium-99m tetrofosmin for stress imaging. The electrocardiogram showed sinus rhythm with subtle nonspecific ST abnormality and with QS complexes in the anteroseptal leads. The electrocardiogram did not change significantly with the regadenoson infusion. The patient tolerated the procedure well. Review of images at rest and following stress indicates an apical perfusion defect that is fixed. There appears to be apical hypokinesis. Left ventricular ejection fraction of 55%. Left ventricular end diastolic volume is 168 mL. TID is absent (1.16). CONCLUSIONS: 1. This study is indicative of a small to moderate sized apical infarction. 2. Apical hypokinesis. 3. Moderate cardiomegaly. 4. Left ventricular ejection fraction is calculated to be 55%. Job ID: [id number] DocumentID: [id number] Dictated Date: 07/24/2018 18:12:10 Hogshead Stripper Date: 07/24/2018 20:34:45 Dictated By: ESPERANZA STANFORD MD, MA, FACP, FACC,
== END ==
LOC: CARD 11:49
PROVIDERS: ATTEND Nurse Practitioner Family
DX: I25.10 Atherosclerotic heart disease of native coronary artery without angina pectoris (principal); R07.9 Chest pain, unspecified; I77.89 Other specified disorders of arteries and arterioles; I10 Essential (primary) hypertension; E78.5 Hyperlipidemia, unspecified; G47.33 Obstructive sleep apnea (adult) (pediatric)
CPT/HCPCS: 78452; 93017

== ENCOUNTER 2018-08-06 13:23 | Outpatient (CLI) | payer MEDICARE ==
[~2018-08-06] VITALS: Ht 170.2 cm; Wt 165.6 kg
[~2018-08-06 13:23] MED LIST changes: -CATHETER FLUSH 10 ML SYR IV PRN; -ONDA8TAB6 PO; -POTA-51 PO; -REGADENOSON 0.4 MG/5 ML SYR (LEXISCAN) IV ONE
[2018-08-06 13:33] VITALS: BP 187/79
[2018-08-06] MEDS ORDERED: ONDA8TAB6 PO (14:03)
[2018-08-06] MEDS ORDERED: POTA-51 PO (14:03)
== END 2018-08-06 13:55 | disposition home or self-care (01) ==
LOC: PREOP 13:23
PROVIDERS: ATTEND Orthopaedic Surgery
DX: Z01.818 Encounter for other preprocedural examination (principal)
CPT/HCPCS: 87081

== ENCOUNTER 2018-08-08 10:04 | Day surgery (SDC) | payer MEDICARE ==
[~2018-08-08] VITALS: Ht 170.2 cm; Wt 165.6 kg
[~2018-08-08 10:04] MED LIST changes: +ONDA8TAB6 PO; +POTA-51 PO
[2018-08-08] MEDS ORDERED: LACTATED RINGERS 1,000 ML IV PRN (10:08)
--- NOTE | 2018-08-08 10:10 | Progress Note-Pre Operative ---
Pre-Operative Progress Note H&P Reviewed The H&P was reviewed, patient examined and no changes noted. 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
--- NOTE | 2018-08-08 10:11 | Progress Note-Post Operative ---
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
[2018-08-08] MEDS ORDERED: ceFAZolin INJECTION 1,000 MG in NS (IVPB) 50 ML IV ONE (10:15)
[2018-08-08] MEDS ORDERED: oxyCODONE/APAP 10/325MG (PERCOCET 10) TABLET PO PRN (10:15)
[2018-08-08] MEDS ORDERED: BUPIVACAINE 0.25% 30 ML (SENSORCAINE) VIAL ONE (10:31)
[2018-08-08] MEDS ORDERED: fentaNYL INJECTION 100 MCG/2 ML AMP ONE (10:31)
[2018-08-08] MEDS ORDERED: MIDAZOLAM 2 MG/2 ML (VERSED) VIAL ONE (10:31)
[2018-08-08] MEDS ORDERED: morphine PF (DURAMORPH) 10 MG/10 ML AMP ONE (10:32)
[2018-08-08 10:50] VITALS: BP 176/80
[2018-08-08] MEDS ORDERED: METO-370 PO (11:23)
[2018-08-08] MEDS ORDERED: LIDOCAINE PF 2% 5 ML (XYLOCAINE) VIAL ONE (11:39)
[2018-08-08] MEDS ORDERED: proPOfol 200 MG/20 ML (DIPRIVAN) VIAL IV ONE (11:39)
[2018-08-08] MEDS ORDERED: ONDANSETRON 4 MG/2 ML (SDV) Z0FRAN ONE (11:39)
[2018-08-08] MEDS ORDERED: SEVOFLURANE (ULTANE) 15 ML INHAL SOLN ONE ×3 (11:40)
[2018-08-08] MEDS ORDERED: MEPERIDINE (DEMEROL) INJ 50 MG/ML IVP ONE (11:45)
[2018-08-08] MEDS ORDERED: ONDANSETRON 4 MG/2 ML (SDV) Z0FRAN IVP PRN (11:45)
[2018-08-08] MEDS ORDERED: morphine INJ 10 MG/ML 1ML (SYR OR VIAL) IVP ONE (11:45)
--- OUTSIDE RECORDS SUMMARY | 2018-08-08 12:23 | XMS REPORT ---
Author Author NOEMI WASHBURN [facility] Address [address] [place] [address] Care Team Providers Care Forestry Scientist Name Role Phone NOEMI WASHBURN Unavailable PROBLEMS Type Condition ICD9-CM Code WBM08-HQ Code Onset Dates Condition Status SNOMED Code Problem Chronic lymphocytic leukemia C91.10 Active 57829639 Problem Insomnia, unspecified type G47.00 Active 602626006 Problem Lymphocytosis D72.820 Active 44606604 Problem Anxiety F41.9 Active 06396806 Problem Eye exam abnormal R93.8 Active 124860513 Problem Morbid obesity E66.01 Active 534882778 Problem Diabetic polyneuropathy associated with type 2 diabetes mellitus E11.42 Active 85131163 Problem Essential hypertension I10 Active 26078102 Problem Falling R29.6 Active 458920904 Problem 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 Active 846601270 Problem Cough R05 Active 64519433 Problem Dysuria R30.0 Active 10120144 Problem Eustachian tube dysfunction, unspecified laterality H69.80 Active 41972623 Problem Bilateral primary osteoarthritis of knee M17.0 Active 267165128 Problem Polyneuropathy associated with underlying disease G63 Active 830826619 Problem Anemia of chronic illness D63.8 Active 660195096 Problem Retinal edema H35.81 Active 7684629 Problem DM neuro manif type II E11.49 Active 37577060 Problem Diabetes E11.9 Active 83528438 Problem Hypokalemia E87.6 Active 72158973 Problem Benign prostatic hyperplasia with lower urinary tract symptoms, unspecified morphology N40.1 Active 299048207 Problem Reactive airway disease J45.909 Active 838831255568 Problem Bipolar I disorder, most recent episode (or current) mixed, moderate F31.62 Active 25735984 Problem Chronic pain G89.29 Active 58939239 Problem Leukocytosis D72.829 Active 596736266 ALLERGIES Substance Reaction Event Type Date Status Breo Ellipta Tongue Swelling Drug Allergy Jun, Active ENCOUNTERS Encounter Location Date Diagnosis [facility] [address], [place] [address] Mar, [facility] [id number] [place] [address] 16843- 3304 Feb, [facility] [id number] [place] [address] 38572- 3604 January, Bipolar I disorder, most recent episode (or current) mixed, moderate F31.62 [facility] [id number] [place] [address] 58921- 5104 January, Bipolar I disorder, most recent episode (or current) mixed, moderate F31.62 [facility] [id number] [place] [address] 69045- 9906 Dec, Bipolar I disorder, most recent episode (or current) mixed, moderate F31.62 and BMI 50.0-59.9, adult Z68.43 [facility] [id number] [place] [address] 96179- 5230 Dec, Bipolar I disorder, most recent episode (or current) mixed, moderate F31.62 [facility] [id number] [place] [address] 90987- 1396 Dec, Chronic pain G89.29 [facility] [id number] [place] [address] 65747- 1813 Dec, DM neuro manif type II E11.49 ; Right flank pain R10.9 ; 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 Z79.891 ; Encounter for medication monitoring Z51.81 and BMI 50.0-59.9, adult Z68.43 [facility] [id number] [place] [address] 96152- 7116 Dec, Bipolar I disorder, most recent episode (or current) mixed, moderate F31.62 [facility] [id number] [place] [address] 83420- 9276 Nov, Bipolar I disorder, most recent episode (or current) mixed, moderate F31.62 [facility] [id number] [place] [address] 84597 2546 Nov, Chronic pain G89.29 [facility] [id number] [place] [address] 16065 2546 Nov, Bipolar I disorder, most recent episode (or current) mixed, moderate F31.62 [facility] [id number] [place] [address] 76248 2546 Nov, Hypokalemia E87.6 [facility] [id number] [place] [address] 056728- 5696 Nov, Bipolar I disorder, most recent episode (or current) mixed, moderate F31.62 [facility] [id number] [place] [address] 26726- 4765 Oct, Chronic pain G89.29 [facility] [id number] [place] [address] 57502 2541 Oct, BMI 50.0-59.9, adult Z68.43 and Bipolar I disorder, most recent episode (or current) mixed, moderate F31.62 [facility] [id number] [place] [address] 44650- 9467 Oct, Bipolar I disorder, most recent episode (or current) mixed, moderate F31.62 [facility] [id number] [place] [address] 38795- 0976 Oct, [facility] [id number] [place] [address] 967126- 6461 Oct, Hypokalemia E87.6 [facility] [id number] [place] [address] 04358- 3412 Oct, DM neuro manif type II E11.49 [facility] [id number] [place] [address] 09841- 0415 Oct, Bipolar I disorder, most recent episode (or current) mixed, moderate F31.62 [facility] [id number] [place] [address] 58800- 4127 20 Oct, 2017 Bipolar I disorder, most recent episode (or current) mixed, moderate F31.62 [facility] [id number] [place] [address] 00963- 0085 14 Oct, 2017 Hyperkalemia E87.5 ; Falling R29.6 ; BMI 50.0-59.9, adult Z68.43 and Acute left ankle pain M25.572 [facility] [address] 31666- 4400 08 Oct, 2017 DM neuro manif type II E11.49 [facility] [address] 07237- 7238 Oct, [facility] [address] 56908- 5892 Sep, Chronic pain G89.29 [facility] [id number] [place] [address] 96251- 7772 Sep, [facility] [address] 73484- 6623 Sep, Bilateral primary osteoarthritis of knee M17.0 [facility] [address] 52190- 4352 Sep, Generalized edema R60.1 [facility] [address] 45710- 5987 Sep, Bipolar I disorder, most recent episode (or current) mixed, moderate F31.62 [facility] [id number] [place] [address] 70215- 3996 15 Sep, 2017 Hypoxia R09.02 ; Other hypervolemia E87.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 ; Anemia of chronic illness D63.8 and BMI 50.0- 59.9, adult Z68.43 [facility] [id number] [place] [address] 26106- 0294 Sep, [facility] [id number] [place] [address] 873460- 6953 Sep, Bipolar I disorder, most recent episode (or current) mixed, moderate F31.62 [facility] [id number] [place] [address] 48742- 5757 Aug, Chronic pain G89.29 [facility] [id number] [place] [address] 89055- 3979 Aug, Generalized edema R60.1 [facility] [id number] [place] [address] 51789- 2807 Aug, [facility] [id number] [place] [address] 70859- 7014 Aug, [facility] [id number] [place] [address] 12234- 6031 Aug, Bipolar I disorder, most recent episode (or current) mixed, moderate F31.62 [facility] [id number] [place] [address] 54408- 3364 Aug, Bipolar I disorder, most recent episode (or current) mixed, moderate F31.62 [facility] [id number] [place] [address] 16410- 3624 Aug, Chronic pain G89.29 [facility] [id number] [place] [address] 48958- 3706 Jul, Bipolar I disorder, most recent episode (or current) mixed, moderate F31.62 [facility] [id number] [place] [address] 74302- 5626 Jul, Bipolar I disorder, most recent episode (or current) mixed, moderate F31.62 and BMI 60.0-69.9, adult Z68.44 [facility] [address], [place] [address]- 6812 16 Jul, 2017 Bipolar I disorder, most recent episode (or current) mixed, moderate F31.62 [facility] [id number] [place] [address] 11167- 1131 Jul, Chronic pain G89.29 [facility] [id number] [place] [address] 23067- 6881 Jul, Bipolar I disorder, most recent episode (or current) mixed, moderate F31.62 [facility] [id number] [place] [address] 95217- 6762 Jun, Polyneuropathy associated with underlying disease G63 and Diabetes E11.9 [facility] [id number] [place] [address] 35193- 5233 Jun, Bipolar I disorder, most recent episode (or current) mixed, moderate F31.62 [facility] [id number] [place] [address] 79608- 3424 Jun, Chronic pain G89.29 [facility] [id number] [place] [address] 97889- 5393 27 May, 2017 Bipolar I disorder, most recent episode (or current) mixed, moderate F31.62 [facility] [address], [place] [address]- 8860 21 May, 2017 Bipolar I disorder, most recent episode (or current) mixed, moderate F31.62 [facility] [address], [place] [address]- 4338 20 May, 2017 Diabetic polyneuropathy associated with type 2 diabetes mellitus E11.42 [facility] [id number] [place] [address] 70984- 2440 18 May, 2017 Bipolar I disorder, most recent episode (or current) mixed, moderate F31.62 [facility] [address], [place] [address]- 1998 13 May, 2017 Bipolar I disorder, most recent episode (or current) mixed, moderate F31.62 [facility] [id number] [place] [address] 74727- 1592 May, Chronic pain G89.29 [facility] [id number] [place] [address] 0696 Apr, Bipolar I disorder, most recent episode (or current) mixed, moderate F31.62 [facility] [id number] [place] [address] 279840- 4344 Apr, [facility] [id number] [place] [address] 265312- 8080 Apr, Chronic pain G89.29 and DM neuro manif type II E11.49 [facility] [id number] [place] [address] 262081- 2631 Apr, [facility] [id number] [place] [address] 549199- 5092 Apr, Bipolar I disorder, most recent episode (or current) mixed, moderate F31.62 [facility] [id number] [place] [address] 63297- 2919 Apr, Chronic pain G89.29 [facility] [id number] [place] [address] 334393- 8750 Apr, Iliotibial band syndrome, left M76.32 [facility] [id number] [place] [address] 353445- 4386 Apr, Bipolar I disorder, most recent episode (or current) mixed, moderate F31.62 [facility] [id number] [place] [address] 83018- 2628 Mar, Bipolar I disorder, most recent episode (or current) mixed, moderate F31.62 [facility] [id number] [place] [address] 38020- 1906 Mar, Bipolar I disorder, most recent episode (or current) mixed, moderate F31.62 [facility] [address] [address]- 8750 Mar, [facility] [id number] [place] [address] 60268- 7959 Mar, Bipolar I disorder, most recent episode (or current) mixed, moderate F31.62 [facility] [id number] [place] [address] 69896- 2489 Mar, Chronic pain G89.29 [facility] [id number] [place] [address] 27589- 5383 Mar, Bipolar I disorder, most recent episode (or current) mixed, moderate F31.62 [facility] [id number] [place] [address] 88553- 3134 Mar, Bipolar I disorder, most recent episode (or current) mixed, moderate F31.62 [facility] [id number] [place] [address] 92342- 0000 Mar, Acute pain of left knee M25.562 ; Left hip pain M25.552 ; Generalized edema R60.1 and Tongue swelling R22.0 [facility] [id number] [place] [address] 14555- 7484 Mar, [facility] [id number] [place] [address] 71968- 6081 Feb, Chronic pain G89.29 [facility] [id number] [place] [address] 45061- 9293 Feb, Diabetes E11.9 [facility] [id number] [place] [address] 37528- 7206 January, Chronic pain G89.29 [facility] [id number] [place] [address] 95093- 3962 January, [facility] [id number] [place] [address] 67676- 7793 January, Bipolar I disorder, most recent episode (or current) mixed, moderate F31.62 [facility] [id number] [place] [address] 94308- 1028 Dec, Bipolar I disorder, most recent episode (or current) mixed, moderate F31.62 [facility] [id number] [place] [address] 71463- 9525 Dec, Chronic pain G89.29 [facility] [id number] [place] [address] 95564- 3187 Dec, Bipolar I disorder, most recent episode (or current) mixed, moderate F31.62 [facility] [id number] [place] [address] 65026- 7597 Dec, Diabetes E11.9 ; Essential hypertension I10 ; Chronic pain G89.29 and Morbid obesity E66.01 [facility] [id number] [place] [address] 06467- 4155 Dec, [facility] [id number] [place] [address] 58687- 9913 Dec, Bipolar I disorder, most recent episode (or current) mixed, moderate F31.62 [facility] [id number] [place] [address] 27693- 0993 Dec, Bipolar I disorder, most recent episode (or current) mixed, moderate F31.62 [facility] [id number] [place] [address] 48013- 7349 Nov, Chronic pain G89.29 [facility] [id number] [place] [address] 93164- 6904 Nov, Bipolar I disorder, most recent episode (or current) mixed, moderate F31.62 [facility] [id number] [place] [address] 83844- 1379 Nov, [facility] [id number] [place] [address] 41693- 1879 Nov, Bipolar I disorder, most recent episode (or current) mixed, moderate F31.62 [facility] [address], [place] [address]- 6111 Nov, Bipolar I disorder, most recent episode (or current) mixed, moderate F31.62 [facility] [address], [place] [address]- 5651 Nov, [facility] [id number] [place] [address] 34486- 0449 Nov, [facility] [id number] [place] [address] 31295- 6722 Nov, [facility] [id number] [place] [address] 95993- 3353 Oct, Chronic pain G89.29 [facility] [id number] [place] [address] 94899- 7541 Oct, Bipolar I disorder, most recent episode (or current) mixed, moderate F31.62 [facility] [id number] [place] [address] 79687- 8573 Oct, [facility] [id number] [place] [address] 47650- 7849 Oct, Chronic pain G89.29 ; Diabetes E11.9 ; Anxiety F41.9 and 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 [facility] [address], [place] [address]- 8222 Oct, [facility] [address], [place] [address]- 3419 Oct, Diabetes E11.9 [facility] [id number] [place] [address] 79875- 4074 Oct, Bipolar I disorder, most recent episode (or current) mixed, moderate F31.62 [facility] [address], [place] [address]- 4842 Sep, Chronic pain G89.29 [facility] [id number] [place] [address] 08896- 0460 Sep, Chronic pain G89.29 [facility] [id number] [place] [address] 98480- 6185 Aug, Chronic pain G89.29 [facility] [id number] [place] [address] 32757- 8362 Jul, [facility] [id number] [place] [address] 31427- 8890 Jul, Diabetes E11.9 [facility] [id number] [place] [address] 48023- 8452 Jul, Chronic pain G89.29 [facility] [id number] [place] [address] 36690- 3626 Jul, Bipolar I disorder, most recent episode (or current) mixed, moderate F31.62 [facility] [id number] [place] [address] 40074- 5157 Jun, Bipolar I disorder, most recent episode (or current) mixed, moderate F31.62 [facility] [id number] [place] [address] 39647- 2924 Jun, [facility] [id number] [place] [address] 92899- 6041 Jun, Bipolar I disorder, most recent episode (or current) mixed, moderate F31.62 [facility] [id number] [place] [address] 86541- 4934 30 May, 2016 Insomnia, unspecified type G47.00 [facility] [id number] [place] [address] 26203- 7442 22 May, 2016 Bipolar I disorder, most recent episode (or current) mixed, moderate F31.62 [facility] [id number] [place] [address] 01326- 9612 14 May, 2016 [facility] [id number] [place] [address] 14710- 6454 May, Bipolar I disorder, most recent episode (or current) mixed, moderate F31.62 [facility] [id number] [place] [address] 28921- 0127 May, Diabetes E11.9 and Essential hypertension I10 [facility] [id number] [place] [address] 37844- 9272 Apr, Chronic pain G89.29 [facility] [id number] [place] [address] 074916- 8509 Apr, Bipolar I disorder, most recent episode (or current) mixed, moderate F31.62 [facility] [id number] [place] [address] 69717- 7746 Apr, [facility] [id number] [place] [address] 50453- 1906 Apr, [facility] [address] 04028- 9477 Mar, Chronic pain G89.29 ; Headache, unspecified headache type R51 ; Neuropathy G62.9 ; Pain of right hip joint M25.551 and Essential hypertension I10 [facility] [id number] [place] [address] 01532- 3007 Mar, Chronic pain G89.29 [facility] [id number] [place] [address] 65697- 3169 Mar, Bipolar I disorder, most recent episode (or current) mixed, moderate F31.62 [facility] [id number] [place] [address] 04620- 6592 Feb, Bipolar I disorder, most recent episode (or current) mixed, moderate F31.62 and Insomnia, unspecified type G47.00 [facility] [id number] [place] [address] 38410- 0797 Feb, Chronic pain G89.29 [facility] [id number] [place] [address] 38476- 6053 Feb, Bipolar I disorder, most recent episode (or current) mixed, moderate F31.62 [facility] [id number] [place] [address] 71503- 3261 January, Bipolar I disorder, most recent episode (or current) mixed, moderate F31.62 [facility] [id number] [place] [address] 70387- 8069 January, Chronic pain G89.29 [facility] [id number] [place] [address] 05008- 9829 January, Chronic pain G89.29 and Essential hypertension I10 [facility] [id number] [place] [address] 51711- [phone] January, Bipolar I disorder, most recent episode (or current) mixed, moderate F31.62 [facility] [id number] [place] [address] [phone]- [phone] Dec, [facility] [id number] [place] [address] 85441- 9840 Dec, [facility] [id number] [place] [address] 46576- [phone] Dec, [facility] [id number] [place] [address] 75078- 4868 Dec, [facility] [id number] [place] [address] 09049- 6959 Nov, Reactive airway disease J45.909 [facility] [id number] [place] [address] 07737- 4005 Nov, [facility] [id number] [place] [address] 17276- 8392 Nov, [facility] [id number] [place] [address] 74437- 7080 Nov, [facility] [id number] [place] [address] 66010- 0883 Nov, [facility] [id number] [place] [address] 73098- 7087 Nov, Onychomycosis B35.1 ; Hammertoe M20.40 ; Greene or callus L84 and DM neuro manif type II E11.49 [facility] [id number] [place] [address] 00840- 9687 Nov, Chronic pain G89.29 ; Leukocytosis D72.829 and Diabetes E11.9 [facility] [address] [phone]- [phone] Nov, [facility] [place] [address] 85166- 0909 Oct, Bronchitis J40 [place] [address] 57142- 7139 Oct, [place] [address] 35059- 1614 Oct, [place] [address] 40187- 7706 Oct, Mastoiditis, unspecified laterality H70.90 and Type 2 diabetes mellitus with complication E11.8 [place] [id number] [place] [address] 64674- 6955 Sep, [place] [address] [place] [id number] [place] [address] 54179- 5029 Sep, Dysuria R30.0 ; Cough R05 ; Benign prostatic hyperplasia with lower urinary tract symptoms, unspecified morphology N40.1 ; Hypokalemia E87.6 and Eustachian tube dysfunction, unspecified laterality H69.[address] 55382- 9236 Sep, Moderate mixed bipolar I disorder F31.62 [place] [address] [place] [id number] [place] [address] 75233- 7688 Sep, Hypokalemia E87.6 [place] [id number], [place] [address] 9968 Sep, [facility] [address] [id number] [place] [address] 76322- 0487 Sep, Upper respiratory tract infection, unspecified type J06.9 [facility] [address] [id number] [place] [address] 74223- 2177 Aug, [facility] [id number] [place] [address] 38676- 1477 Aug, Dysuria R30.0 [facility] [address] [id number] [place] [address] 78184- 2259 Aug, [facility] [id number] [place] [address] 09223- 5324 Jul, [facility] [id number] [place] [address] 47793- 8111 Jul, [facility] [id number] [place] [address] 39995- 0855 Jul, [facility] [id number] [place] [address] 76435- 4555 Jul, [facility] [id number] [place] [address] 27105- 8829 Jun, [facility] [id number] [place] [address] 90392- 2923 Jun, [facility] [id number] [place] [address] 69307- 6133 Jun, [facility] [id number] [place] [address] 44657- 6269 May, [facility] [id number] [place] [address] 25578- 9665 May, Bipolar I disorder, most recent episode (or current) mixed, moderate 296.62 [facility] [address] [id number] [place] [address] 05967- 5666 May, [facility] [address], [place] [address]- 4047 May, Bipolar I disorder, most recent episode (or current) mixed, moderate 296.62 and Major depressive disorder, recurrent episode, severe, specified as with psychotic behavior 296.34 [facility] [address], [place] [address]- 6787 May, Bipolar I disorder, most recent episode (or current) mixed, moderate 296.62 [facility] [address] [place] [id number] [place] [address] 98875- 2039 May, [facility] [address] [id number] [place] [address] 73868- 9995 Apr, [facility] [address] [id number] [place] [address] 84115- 6443 Apr, [facility] [address] [id number] [place] [address] 98946- 3306 Apr, Unspecified disorder of kidney and ureter 593.9 and Diabetes mellitus type 2, uncontrolled 250.02 [facility] [address] [id number] [place] [address] 20118- 9076 Apr, [facility] [address], [place] [address]- 3076 Apr, [facility] [id number] [place] [address] 33406- 7644 Apr, [facility] [address], [place] [address]- 1518 Apr, [facility] [address] [place] [id number] [place] [address] 44810- 1231 Apr, Diabetes mellitus type II, uncontrolled 250.02 [facility] [address], [place] [address]- 5861 Apr, [facility] [address] [place] [id number] [place] [address] 35404- 3658 Mar, [facility] [address], [place] [address]- 7795 Mar, [facility] [address] [place] [id number] [place] [address] 01479- 4088 Mar, [facility] [address] [id number] [place] [address] 83516- 6606 Mar, Major depressive disorder, recurrent episode, severe, specified as with psychotic behavior 296.34 and Bipolar I disorder, most recent episode (or current) mixed, moderate 296.62 [facility] [address] [id number] [place] [address] 35682- 6945 Mar, Diabetes 250.00 ; Anuria 788.5 ; Nausea and vomiting 787.01 and Diarrhea 787.91 [facility] [address] [place] [id number] [place] [address] 42522- 4399 Mar, Diabetes 250.00 [facility] [address] [id number] [place] [address] 55083- 9746 Mar, [facility] [id number] [place] [address] 51478- 3590 Mar, Diabetes 250.00 [facility] [address] [id number] [place] [address] 74996- 4505 Mar, [facility] [id number] [place] [address] 96852- 3990 Mar, [facility] [address], [place] [address]- 2078 Mar, [facility] [id number] [place] [address] 74848- 1154 Mar, [facility] [address] [id number] [place] [address] 36194- 3363 Mar, Bipolar I disorder, most recent episode (or current) mixed, moderate 296.62 and Major depressive disorder, recurrent episode, severe, specified as with psychotic behavior 296.34 [place] [address] [place] [id number] [place] [address] 24205- 7958 Mar, Magnesium deficiency 275.2 ; Hypokalemia 276.8 ; Nausea & vomiting 787.01 and Diabetes mellitus type 2, uncontrolled 250.02 [facility] [address] [place] [id number] [place] [address] 19601- 0211 Feb, [place] [address] 74005- 4202 Feb, Bipolar I disorder, most recent episode (or current) mixed, moderate 296.[address] 56026- 9591 Feb, Nausea and vomiting 787.01 ; Left elbow pain 719.42 ; Anuria 788.5 and Diabetes 250.[address] 33804- 6839 Feb, [place] [address] [place] [id number] [place] [address] 24717- 0353 Feb, Hypopotassemia 276.8 and Hypokalemia 276.[address] 41568- 2768 Feb, Hypopotassemia 276.8 and Hypokalemia 276.8 [place] [id number] [place] [address] 65087- 3003 Feb, Seborrheic keratoses 702.19 [place] [address] [id number] [place] [address] 01121- 7190 Feb, Hypopotassemia 276.8 and Low magnesium levels 275.[address] 16725- 6526 January, [place] [address] [place] [id number] [place] [address] 37936- 0831 January, [place] [address] 44489- 6661 January, [facility] [address], [place] [address]- 6774 January, Scalp lesion 709.9 [facility] [address] [id number] [place] [address] 938511- 2633 January, [facility] [id number] [place] [address] 907369- 7173 Dec, Tear of medial cartilage or meniscus of knee, current 836.0 and 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 [facility] [id number] [place] [address] 27882- 4153 Dec, [facility] [id number] [place] [address] 53962- 0456 Dec, [facility] [id number] [place] [address] 88775- 7135 Dec, Squamous cell carcinoma, 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 [facility] [id number], [place] [address]- 6794 Dec, [facility] [address] [id number] [place] [address] 91069- 9691 Dec, [facility] [id number] [place] [address]- 5999 Nov, [facility] [address], [place] [address]- 3866 Nov, [facility] [address], [place] [address]- 1283 Nov, [facility] [address]- 9229 Nov, [facility] [address] [id number] 3686 Nov, [facility] [address] 1116 Nov, [facility] [place] [facility] [address] [id number] [place] [address]- 4788 Nov, 2014 [facility] [place] [facility] [address] [id number] [place] [address]- 4843 Nov, 2014 [facility] [place] [facility] [address] [id number] [place] [address]- 2560 Nov, 2014 [facility] [place] [facility] [address] [id number] [place] [address]- 2697 Nov, 2014 [facility] [place] [facility] [address] [id number] [place] [address]- 2182 Nov, 2014 [facility] [place] [facility] [address] [id number] [place] [address]- 5421 Nov, 2014 [facility] [place] [facility] [address] [id number] [place] [address]- 4006 Oct, 2014 [facility] [place] [facility] [address] [id number] [place] [address]- 0599 Oct, 2014 [facility] [place] [facility] [address] [id number] [place] [address]- 3443 Oct, 2014 [facility] [place] [facility] [address] [facility] [id number] [place] [address]- 4301 Oct, 2014 [facility] [place] [facility] [address] [facility] [id number] [place] [address]- 9066 Oct, 2014 [facility] [place] [facility] [address] [id number], [place] [address]- 0752 Oct, 2014 [facility] [place] [facility] [address] [id number] [place] [address]- 5969 Oct, 2014 [facility] [place] [facility] [address] [id number] [place] [address]- 6454 Oct, 2014 [facility] [place] [facility] [address] [facility] [id number] [place] [address]- 3972 Oct, 2014 [facility] [place] [facility] [address] [id number] [place] [address]- 1175 Sep, [facility] [place] [facility] [address] [id number] [place] [address]- 6358 Sep, [facility] [place] [facility] [address] [id number] [place] [address]- 8397 Sep, [facility] [place] [facility] [address] [id number] [place] [address]- 2782 Sep, [facility] [place] [facility] [address] [id number] [place] [address]- 8505 Sep, [facility] [place] [facility] [address] [id number] [place] [address]- 3286 Sep, [facility] [place] [facility] [address] [id number] [place] [address]- 8905 Sep, [facility] [place] [facility] [address] [id number] [place] [address]- 2293 Sep, [facility] [place] [facility] [address] [id number] [place] [address]- 0077 Sep, [facility] [place] [facility] [address] [id number] [place] [address]- 4811 Sep, [facility] [place] [facility] [address] [id number] [place] [address]- 6765 Sep, [facility] [place] [facility] [address] [id number] [place] [address]- 6667 Sep, [facility] [place] [facility] [address] [id number] [place] [address]- 2953 Sep, [facility] [place] [facility] [address] [id number] [place] [address]- 6263 Sep, [facility] [place] [facility] [address] [id number] [place] [address]- 8276 Sep, [facility] [place] [facility] [address] [id number] [place] [address]- 2411 Sep, [facility] [place] [facility] [address] [id number] [place] [address]- 9930 Aug, [facility] [address] [id number] [place] [address]- 2848 Aug, [facility] [address] [id number] [place] [address]- 7954 Aug, [facility] [address] [id number] [place] [address]- 2700 Aug, [facility] [address] [id number] [place] [address]- 2214 Aug, [facility] [address] [id number] [place] [address]- 1718 Aug, [facility] [address] [id number] [place] [address]- 7007 Aug, [facility] [address] [id number] [place] [address]- 6496 Aug, [facility] [address] [id number] [place] [address]- 9125 Aug, [facility] [address] [id number] [place] [address]- 8011 Aug, [facility] [address] [id number] [place] [address]- 6590 Aug, [facility] [address] [place] [id number] Aug, [facility] [address] [id number] [place] [address]- 7072 Aug, [facility] [address] [id number] [place] [address]- 8510 Aug, [facility] [address] [id number] [place] [address]- 8508 Aug, [facility] [address] [id number] [place] [address]- 5532 Aug, [facility] [place] [facility] [address] [id number] [place] [address]- 8038 Aug, [facility] [place] [facility] [address] [id number] [place] [address]- 1006 Aug, [facility] [place] [facility] [address] [id number] [place] [address]- 4411 Aug, [facility] [place] [facility] [address] [id number] [place] [address]- 9290 Aug, [facility] [place] [facility] [address] [id number] [place] [address]- 5673 Aug, [facility] [place] [facility] [address] [id number] [place] [address]- 4659 Aug, [facility] [place] [facility] [address] [id number] [place] [address]- 3079 Aug, [facility] [place] [facility] [address] [id number] [place] [address]- 8610 Aug, [facility] [place] [facility] [address] [id number] [place] [address]- 3153 Aug, [facility] [place] [facility] [address] [id number] [place] [address]- 0584 Aug, [facility] [place] [facility] [address] [id number] [place] [address]- 9041 Aug, [facility] [place] [facility] [address] [id number] [place] [address]- 6589 Aug, [facility] [place] [facility] [address] [id number] [place] [address]- 5480 Aug, [facility] [place] [facility] [address] [id number] [place] [address]- 8073 Aug, [facility] [place] [facility] [address] [facility] [id number] [place] 2459 Jul, [facility] [place] [facility] [address] [id number], [place] [address]- 3891 Jul, [facility] [place] [facility] [address] [id number] [place] [address]- 4416 Jul, [facility] [place] [facility] [address] [id number] [place] [address]- 1365 Jul, [facility] [place] [facility] [address] [id number] [place] [address]- 4607 Jul, [facility] [place] [facility] [address] [id number] [place] [address]- 0773 Jul, [facility] [place] [facility] [address] [id number] [place] [address]- 9028 Jul, [facility] [place] [facility] [address] [id number] [place] [address]- 5876 Jul, [facility] [place] [facility] [address] [facility] [id number] [place] [address]- 7670 Jul, [facility] [place] [facility] [address] [id number] [place] [address]- 1454 Jul, [facility] [place] [facility] [address] [facility] [id number] [place] [address]- 7711 Jun, [facility] [place] [facility] [address] [facility] [id number] [place] [address]- 2201 Jun, [facility] [place] [facility] [address] [id number], [place] [address]- 1619 16 Jun, 2014 [facility] [place] [facility] [address] [id number], [place] [address]- 6134 16 Jun, 2014 [facility] [place] [facility] [address] [id number], [place] [address]- 3172 15 Jun, 2014 [facility] [place] [facility] [address] [facility] [id number], [place] [address]- 6837 15 Jun, 2014 [facility] [place] [facility] [address] [facility] [id number], [place] [address]- 5465 05 Jun, 2014 [facility] [place] [facility] [address] [id number] [place] [address]- 2657 Jun, [facility] [place] [facility] [address] [id number] [place] [address]- 1267 Jun, [facility] [place] [facility] [address] [id number] [place] [address]- 9556 Jun, [facility] [place] [facility] [address] [id number] [place] [address] 2546 29 May, 2013 [facility] [place] [facility] [address] [id number] [place] [address] 2547 29 Sep, 2013 [facility] [place] [facility] [address] [id number] [place] [address] 2546 26 May, 2013 [facility] [place] [facility] [address] [id number] [place] [address]- 254 26 May, 2013 [facility] [place] [facility] [address] [id number] [place] [address]- 2541 17 May, 2013 [facility] [place] [facility] [address] [id number] [place] [address] 2544 17 May, 2013 [facility] [place] [facility] [address] [id number] [place] [address]- 2548 15 May, 2013 [facility] [place] [facility] [address] [id number] [place] [address] 2544 15 May, 2013 [facility] [place] [facility] [address] [id number] [place] [address]- 2540 15 May, 2013 [facility] [place] [facility] [address] [id number] [place] [address] 2546 15 May, 2013 [facility] [place] [facility] [address] [id number] [place] [address] 2546 10 May, 2013 [facility] [place] [facility] [address] [id number] [place] [address]- 2546 10 May, 2013 [facility] [place] [facility] [address] [id number] [place] [address]- 1408 May, [facility] [place] [facility] [address] [id number] [place] [address]- 2834 May, [facility] [place] [facility] [address] [id number] [place] [address]- 0648 May, [facility] [place] [facility] [address] [id number] [place] [address]- 0652 May, [facility] [place] [facility] [address] [id number] [place] [address]- 9232 Apr, [facility] [place] [facility] [address] [id number] [place] [address]- 7775 Apr, [facility] [place] [facility] [address] [id number] [place] [address]- 9971 Apr, [facility] [place] [facility] [address] [id number] [place] [address]- 1965 Apr, [facility] [place] [facility] [address] [id number] [place] [address]- 5647 Apr, [facility] [place] [facility] [address] [id number] [place] [address] Apr, [facility] [place] [facility] [address] [id number] [place] [address] Apr, [facility] [place] [facility] [address] [id number] [place] [address] Apr, [facility] [place] [facility] [address] [id number] [place] [address] Apr, [facility] [place] [facility] [address] [id number] [place] [address] Apr, [facility] [place] [facility] [address] [id number] [place] [address] Apr, [facility] [place] [facility] [address] [id number] [place] [address] Apr, [facility] [place] [facility] [address] [id number] [place] [address] Apr, [facility] [place] [facility] [address] [id number] [place] [address] Apr, [facility] [place] [facility] [address] [id number] [place] [address] Apr, [facility] [place] [facility] [address] [id number] [place] [address] Mar, [facility] [place] [facility] [address] [id number] [place] [address] Mar, [facility] [place] [facility] [address] [id number] [place] [address] Mar, [facility] [place] [facility] [address] [id number] [place] [address] Mar, [facility] [place] [facility] [address] [id number] [place] [address] Mar, [facility] [place] [facility] [address] [id number] [place] [address] Mar, [facility] [place] [facility] [address] [id number] [place] [address] Mar, [facility] [place] [facility] [address] [id number] [place] [address]- [address] Mar, [facility] [place] [facility] [address] [id number] [place] [address] Mar, [facility] [place] [facility] [address] [id number] [place] [address] Mar, [facility] [place] [facility] [address] [id number] [place] [address]- [address] Mar, [facility] [place] [facility] [address] [id number] [place] [address] Mar, [facility] [place] [facility] [address] [id number] [place] [address] Mar, [facility] [place] [facility] [address] [id number] [place] [address]- [address] Mar, 2013 [facility] [place] [facility] [address] [id number] [place] [address]- [address] Mar, 2013 [facility] [place] [facility] [address] [id number] [place] [address] Mar, 2013 [facility] [place] [facility] [address] [id number] [place] [address]- [address] Mar, [facility] [place] [facility] [address] [id number] [place] [address] Mar, [facility] [place] [facility] [address] [id number] [place] [address] Feb, [facility] [place] [facility] [address] [id number] [place] [address] Feb, [facility] [place] [facility] [address] [id number] [place] [address] Feb, [facility] [place] [facility] [address] [id number] [place] [address]- [address]68 Feb, [facility] [place] [facility] [address] [id number] [place] [address]687 Feb, [facility] [place] [facility] [address] [id number] [place] [address] Feb, [facility] [place] [facility] [address] [id number] [place] [address] Feb, [facility] [place] [facility] [address] [id number] [place] [address] Feb, [facility] [place] [facility] [address] [id number] [place] [address]- [address] Feb, [facility] [place] [facility] [address] [id number] [place] [address]- [address] Feb, [facility] [place] [facility] [address] [id number] [place] [address]- [address] Feb, [facility] [place] [facility] [address] [id number] [place] [address]- [address] Feb, [facility] [place] [facility] [address] [id number] [place] [address] Feb, [facility] [place] [facility] [address] [id number] [place] [address] Feb, [facility] [place] [facility] [address] [id number] [place] [address] January, [facility] [place] [facility] [address] [id number] [place] [address] January, [facility] [place] [facility] [address] [id number] [place] [address] January, [facility] [place] [facility] [address] [id number] [place] [address] January, [facility] [place] [facility] [address] [id number] [place] [address]- [address] January, [facility] [place] [facility] [address] [id number] [place] [address] 84[address] January, [facility] [place] [facility] [address] [id number] [place] [address]- [address] January, [facility] [place] [facility] [address] [id number] [place] [address] January, [facility] [place] [facility] [address] [id number] [place] [address]- [address] January, [facility] [place] [facility] [address] [id number] [place] [address] January, [facility] [place] [facility] [address] [id number] [place] [address]- [address] January, [facility] [place] [facility] [address] [id number] [place] [address]- [address] January, [facility] [place] [facility] [address] [id number] [place] [address]- [address] January, [facility] [address] [id number] [place] [address] January, [facility] [address] [id number] [place] [address] 1246 Dec, [facility] [address] [id number] [place] [address] 4966 Dec, [facility] [address] [id number] [place] [address] 6046 Dec, [facility] [address] [id number] [place] [address] 2162 Dec, [facility] [address] [id number] [place] [address] 3748 Dec, [facility] [address] [id number] [place] [address]- 2459 Dec, [facility] [address] [id number] [place] [address] 4844 Dec, [facility] [address] [id number] [place] [address]- 8614 Dec, [facility] [address] [id number] [place] [address] 7701 Dec, [facility] [place] [facility] [address] [id number] [place] [address] 6422 Dec, [facility] [address] [id number] [place] [address] 4364 Nov, [facility] [place] [facility] [address] [id number] [place] [address]- 6577 Nov, [facility] [place] [facility] [address] [id number] [place] [address] 6240 Nov, [facility] [place] [facility] [address] [id number] [place] [address] 4538 Nov, [facility] [place] [facility] [address] [id number] [place] [address]- 2620 08 Nov, 2013 [facility] [place] [facility] [address] [id number] [place] [address]- 5339 Nov, [facility] [place] [facility] [address] [id number] [place] [address]- 2869 Nov, [facility] [place] [facility] [address] [id number] [place] [address]- 2585 Nov, [facility] [place] [facility] [address] [id number] [place] [address] 1936 Nov, [facility] [place] [facility] [address] [id number] [place] [address]- 2348 Nov, [facility] [place] [facility] [address] [id number] [place] [address]- 7972 Oct, [facility] [place] [facility] [address] [id number] [place] [address]- 4914 Oct, [facility] [place] [facility] [address] [id number] [place] [address]- 3633 Oct, [facility] [place] [facility] [address] [facility] [id number] [place] [address]- 4119 Oct, [facility] [place] [facility] [address] [id number] [place] [address]- 8033 Oct, [facility] [place] [facility] [address] [id number] [place] [address]- 2389 Oct, [facility] [place] [facility] [address] [id number] [place] [address]- 3996 14 Oct, 2013 [facility] [place] [facility] [address] [id number] [place] [address]- 1264 14 Oct, 2013 [facility] [place] [facility] [address] [facility] [id number] [place] [address]- 5333 05 Oct, 2013 [facility] [place] [facility] [address] [id number] [place] [address]- 0925 05 Oct, 2013 [facility] [place] [facility] [address] [id number] [place] [address]- 4722 Oct, [facility] [place] [facility] [address] [id number] [place] [address]- 7906 Oct, [facility] [place] [facility] [address] [id number] [place] [address]- 2606 Oct, [facility] [place] [facility] [address] [id number] [place] [address]- 4058 Oct, [facility] [place] [facility] [address] [id number] [place] [address]- 4262 Sep, [facility] [place] [facility] [address] [id number] [place] [address]- 4343 Sep, [facility] [place] [facility] [address] [id number] [place] [address]- 6670 Sep, [facility] [place] [facility] [address] [id number] [place] [address]- 4924 Sep, [facility] [place] [facility] [address] [id number] [place] [address]- 4550 Sep, [facility] [place] [facility] [address] [id number] [place] [address]- 8005 Sep, [facility] [place] [facility] [address] [id number] [place] [address]- 9387 Sep, [facility] [place] [facility] [address] [id number] [place] [address]- 3285 Sep, [facility] [place] [facility] [address] [id number] [place] [address]- 2375 Sep, [facility] [place] [facility] [address] [id number] [place] [address]- 4987 Sep, [facility] [place] [facility] [address] [id number] [place] [address]- 0755 Aug, [facility] [place] [facility] [address] [id number] [place] [address]- 8279 Aug, [facility] [place] [facility] [address] [id number], [place] [address]- 0345 Jul, [facility] [place] [facility] [address] [id number] [place] [address]- 2222 Jul, [facility] [place] [facility] [address] [id number], [place] [address]- 7849 Jul, [facility] [place] [facility] [address] [id number] [place] [address]- 0218 Jul, [facility] [place] [facility] [address] [id number], [place] [address]- 3141 Jul, [facility] [place] [facility] [address] [id number], [place] [address]- 5052 Jul, [facility] [place] [facility] [address] [id number], [place] [address]- 7599 Jul, [facility] [place] [facility] [address] [id number], [place] [address]- 3100 Jul, [facility] [place] [facility] [address] [id number], [place] [address]- 0191 Jul, [facility] [place] [facility] [address] [id number], [place] [address]- 8090 Jul, [facility] [place] [facility] [address] [id number], [place] [address]- 6120 Jul, [facility] [place] [facility] [address] [id number], [place] [address]- 8122 Jul, [facility] [place] [facility] [address] [id number], [place] [address]- 5365 Jul, [facility] [place] [facility] [address] [id number], [place] [address]- 7544 Jul, [facility] [place] [facility] [address] [id number] [place] [address]- 9724 05 Jul, 2012 [facility] [place] [facility] [address] [id number] [place] [address]- 4805 Jul, 2012 [facility] [place] [facility] [address] [id number] [place] Jul, 2012 [facility] [place] [facility] [address] [id number] [place] [address]- 9212 Jul, 2012 [facility] [place] [facility] [address] [id number] [place] [address]- 6689 Jul, 2012 [facility] [place] [facility] [address] [id number] [place] [address] Jun, 2012 [facility] [place] [facility] [address] [id number] [place] [address]- 7375 Jun, 2012 [facility] [place] [facility] [address] [id number] [place] [address]- 0534 Jun, 2012 [facility] [place] [facility] [address] [id number] [place] [address]- 1388 Jun, 2012 [facility] [place] [facility] [address] [id number] [place] [address]- 1083 Jun, 2012 [facility] [place] [facility] [address] [id number] [place] [address]- 9499 Jun, 2012 [facility] [place] [facility] [address] [id number] [place] [address]- 0779 Jun, 2012 [facility] [place] [facility] [address] [id number], [place] [address]- 4680 Jun, 2012 [facility] [place] [facility] [address] [id number] [place] [address] Jun, 2012 [facility] [place] [facility] [address] [id number] [place] [address]- 0077 Jun, 2012 [facility] [place] [facility] [address] [id number] [place] Jun, [facility] [place] [facility] [address] [id number] [place] [address]- 7753 May, 2012 [facility] [place] [facility] [address] [id number] [place] [address]- 8194 May, 2012 [facility] [place] [facility] [address] [id number] [place] [address]- 1948 May, 2012 [facility] [place] [facility] [address] [id number] [place] [address]- 6866 17 May, 2012 [facility] [place] [facility] [address] [id number] [place] [address]- 7904 11 May, 2012 [facility] [place] [facility] [address] [id number] [place] [address]- 3968 May, 2012 [facility] [address] [id number] [place] [address]- 2309 May, 2012 [facility] [place] [facility] [address] [id number] [place] [address]- 4354 05 May, 2013 [facility] [place] [facility] [address] [id number] [place] [address]- 7395 Apr, [facility] [place] [facility] [address] [id number] [place] [address]- 7812 Apr, [facility] [place] [facility] [address] [id number] [place] [address]- 6858 Apr, [facility] [place] [facility] [address] [id number] [place] [address]- 4217 Apr, [facility] [place] [facility] [address] [id number] [place] [address]- 7350 Apr, [facility] [place] [facility] [address] [id number] [place] [address]- 8632 Mar, [facility] [place] [facility] [address] [id number] [place] [address]- 2681 Mar, [facility] [place] [facility] [address] [id number] [place] [address]- 1453 Mar, [facility] [address] [id number] [place] [address]- 8832 Mar, [facility] [place] [facility] [address] [id number] [place] [address]- 0842 Mar, [facility] [place] [facility] [address] [id number] [place] [address]- 8867 Mar, [facility] [place] [facility] [address] [id number] [place] [address]- 5794 Mar, [facility] [place] [facility] [address] [id number] [place] [address]- 9757 Mar, [facility] [place] [facility] [address] [id number] [place] [address]- 6566 Feb, [facility] [place] [facility] [address] [id number] [place] [address]- 0669 Feb, [facility] [place] [facility] [address] [id number] [place] [address]- 7169 January, [facility] [place] [facility] [address] [id number] [place] [address]- 2806 January, [facility] [place] [facility] [address] [id number] [place] [address]- 0066 Dec, [facility] [place] [facility] [address] [id number] [place] [address]- 6658 Dec, [facility] [place] [facility] [address] [id number] [place] [address]- 0994 Nov, [facility] [place] [facility] [address] [id number] [place] [address]- 4946 Nov, [facility] [place] [facility] [address] [id number] [place] [address]- 9628 Nov, [facility] [place] [facility] [address] [id number] [place] [address]- 2581 Nov, [facility] [place] [facility] [address] [id number] [place] [address]- 4921 Oct, [facility] [address] [id number] [place] [address]- 3046 Oct, 2012 [facility] [place] [facility] [address] [id number] [place] [address]- 2546 Oct, [facility] [place] [facility] [address] [id number] [place] [address] 2546 Oct, 2012 [facility] [place] [facility] [address] [id number] [place] [address]- 2545 16 Oct, 2012 [facility] [place] [facility] [address] [id number] [place] [address]- 0006 14 Oct, 2012 [facility] [address] [facility] [id number] [place] [address]- 6241 08 Oct, 2012 [facility] [place] [facility] [address] [id number] [place] [address]- 3733 07 Oct, 2012 [facility] [place] [facility] [address] [id number] [place] [address]- 8513 03 Oct, 2012 [facility] [place] [facility] [address] [facility] [id number] [place] [address]- 9806 Sep, [facility] [place] [facility] [address] [id number] [place] [address]- 8804 Sep, [facility] [place] [facility] [address] [id number], [place] [address]- 1732 Sep, [facility] [place] [facility] [address] [id number] [place] [address]- 2542 Sep, [facility] [place] [facility] [address] [id number] [place] [address]- 6547 Sep, [facility] [place] [facility] [address] [id number] [place] [address]- 4875 Sep, [facility] [place] [facility] [address] [id number], [place] [address]- 0099 Sep, [facility] [place] [facility] [address] [id number] [place] [address]- 8283 Sep, [facility] [place] [facility] [address] [id number] [place] [address]- 9810 Aug, [facility] [place] [facility] [address] [id number] [place] [address]- 8406 Aug, [facility] [place] [facility] [address] [id number] [place] [address]- 0204 Aug, [facility] [place] [facility] [address] [id number] [place] [address]- 7113 Aug, [facility] [place] [facility] [address] [id number] [place] [address]- 8574 Aug, [facility] [place] [facility] [address] [id number] [place] [address]- 6935 Aug, [facility] [place] [facility] [address] [id number] [place] [address]- 1951 Aug, [facility] [place] [facility] [address] [id number] [place] [address]- 5719 Aug, [facility] [place] [facility] [address] [id number] [place] [address]- 1103 Jul, [facility] [place] [facility] [address] [id number] [place] [address]- 3770 Jul, [facility] [place] [facility] [address] [id number] [place] [address]- 7970 Jul, [facility] [place] [facility] [address] [id number] [place] [address]- 6283 Jul, [facility] [place] [facility] [address] [id number] [place] [address]- 6470 Jul, [facility] [place] [facility] [address] [id number] [place] [address]- 4554 Jul, [facility] [place] [facility] [address] [id number] [place] [address]- 8649 Jun, [facility] [place] [facility] [address] [id number] [place] [address]- 0373 Jun, [facility] [place] [facility] [address] [id number] [place] [address]- 1506 Jun, [facility] [place] [facility] [address] [id number] [place] [address]- 8252 Jun, [facility] [place] [facility] [address] [id number] [place] [address]- 1634 Jun, [facility] [place] [facility] [address] [id number] [place] [address]- 1740 Jun, [facility] [place] [facility] [address] [id number] [place] [address]- 9061 Jun, [facility] [place] [facility] [address] [id number] [place] [address]- 4273 Jun, [facility] [place] [facility] [address] [id number] [place] [address]- 3155 10 Jun, 2012 [facility] [place] [facility] [address] [id number] [place] [address]- 7125 26 May, 2012 [facility] [place] [facility] [address] [id number] [place] [address]- 8119 24 May, 2012 [facility] [place] [facility] [address] [id number] [place] [address]- 9772 18 May, 2012 [facility] [place] [facility] [address] [id number] [place] [address]- 0993 30 Apr, 2012 [facility] [place] [facility] [address] [id number] [place] [address]- 1199 29 Apr, 2012 [facility] [place] [facility] [address] [id number] [place] [address]- 3894 18 Apr, 2012 [facility] [place] [facility] [address] [id number] [place] [address]- 9957 Apr, [facility] [place] [facility] [address] [id number] [place] [address]- 1918 Apr, [facility] [place] [facility] [address] [id number] [place] [address]- 0405 Apr, [facility] [place] [facility] [address] [id number] [place] [address]- 3894 Mar, [facility] [place] [facility] [address] [id number] [place] [address]- 3063 Mar, [facility] [place] [facility] [address] [id number] [place] [address]- 9399 Mar, [facility] [place] [facility] [address] [id number] [place] [address]- 1602 Mar, [facility] [place] [facility] [address] [id number] [place] [address]- 9661 Feb, [facility] [place] [facility] [address] [id number] [place] [address]- 4035 Feb, [facility] [place] [facility] [address] [id number] [place] [address]- 6059 Feb, [facility] [place] [facility] [address] [id number] [place] [address]- 5400 Feb, [facility] [place] [facility] [address] [id number] [place] [address]- 8324 Feb, [facility] [place] [facility] [address] [id number] [place] [address]- 6689 January, [facility] [place] [facility] [address] [id number] [place] [address]- 0126 January, [facility] [place] [facility] [address] [id number] [place] [address]- 0192 January, [facility] [place] [facility] [address] [id number] [place] [address]- 5041 January, [facility] [place] [facility] [address] [id number] [place] [address]- 7286 January, [facility] [place] [facility] [address] [id number] [place] [address]- 2303 January, [facility] [place] [facility] [address] [id number] [place] [address]- 0433 Dec, [facility] [place] [facility] [address] [id number] [place] [address]- 9302 Dec, [facility] [place] [facility] [address] [id number] [place] [address]- 3034 17 Dec, 2011 [facility] [place] [facility] [address] [id number] [place] [address]- 3370 Dec, [facility] [place] [facility] [address] [id number] [place] [address]- 5581 Dec, [facility] [place] [facility] [address] [id number] [place] [address]- 6549 Nov, [facility] [place] [facility] [address] [id number] [place] [address]- 6752 14 Nov, 2011 [facility] [place] [facility] [address] [id number] [place] [address]- 9232 Nov, [facility] [place] [facility] [address] [facility] [id number] [place] [address]- 1834 Nov, [facility] [place] [facility] [address] [id number] [place] [address]- 8001 29 Oct, 2011 [facility] [place] [facility] [address] [id number] [place] [address]- 6429 Oct, [facility] [place] [facility] [address] [id number] [place] [address]- 4915 24 Oct, 2011 [facility] [place] [facility] [address] [id number] [place] [address]- 6327 13 Oct, 2011 [facility] [place] [facility] [address] [id number] [place] [address]- 4825 Oct, [facility] [place] [facility] [address] [id number] [place] [address]- 0402 Sep, [facility] [place] [facility] [address] [id number] [place] [address]- 6912 Sep, [facility] [place] [facility] [address] [id number] [place] [address]- 4147 Sep, [facility] [place] [facility] [address] [id number] [place] [address]- 1216 Sep, [facility] [place] [facility] [address] [id number] [place] [address]- 2924 Sep, [facility] [place] [facility] [address] [id number] [place] [address]- 4135 Sep, [facility] [place] [facility] [address] [facility] [id number] [place] [address]- 9430 Aug, [facility] [place] [facility] [address] [id number] [place] [address]- 1674 Aug, [facility] [place] [facility] [address] [facility] [id number] [place] [address]- 4016 Aug, [facility] [place] [facility] [address] [facility] [id number], [place] [address] Jul, [facility] [place] [facility] [address] [facility] [id number], [place] [address] Jul, [facility] [place] [facility] [address] [id number], [place] [address] Jul, [facility] [place] [facility] [address] [id number] [place] [address] Jul, [facility] [place] [facility] [address] [id number], [place] [address] Jun, [facility] [place] [facility] [address] [facility] [id number][place] [address] [address] Jun, [facility] [place] [facility] [address] [id number], [place] [address] 18 Jun, 2011 [facility] [place] [facility] [address] [id number] [place] [address] 10 Jun, 2011 [facility] [place] [facility] [address] [id number] [place] [address] 10 Jun, 2011 [facility] [place] [facility] [address] [id number] [place] [address] 10 Jun, 2011 [facility] [place] [facility] [address] [id number] [place] [address] 11 Mar, 2011 [facility] [place] [facility] [address] [id number] [place] [address] 18 Dec, 2010 [facility] [place] [facility] [address] [id number] [place] [address] 11 Dec, 2010 [facility] [place] [facility] [address] [facility] [id number] [place] [address] 18 Nov, 2010 [facility] [place] [facility] [address] [facility] [id number] [place] [address] 16 Nov, 2010 [facility] [place] [facility] [address] [facility] [id number] [place] [address] 10 Sep, 2010 [facility] [place] [facility] [address] [facility] [id number] [place] [address] 31 Aug, 2010 [facility] [place] [facility] [address] [id number] [place] [address] 29 Aug, 2010 [facility] [place] [facility] [address] [id number] [place] [address]48 29 Aug, 2010 [facility] [place] [facility] [address] [id number] [place] [address]756 29 Aug, 2010 [facility] [place] [facility] [address] [facility] [id number] [place] [address] 27 Aug, 2010 [facility] [place] [facility] [address] [facility] [id number] [place] [address] 14 Aug, 2010 [facility] [place] [facility] [address] [id number] [place] [address] 08 Aug, 2010 [facility] [place] [facility] [address] [id number] [place] [address] 08 Aug, 2010 [facility] [place] [facility] [address] [id number] [place] [address] Aug, [facility] [place] [facility] [address] [id number] [place] [address] Aug, [facility] [place] [facility] [address] [id number] [place] [address] Aug, [facility] [place] [facility] [address] [id number] [place] [address] Aug, [facility] [place] [facility] [address] [facility] [id number] [place] [address] Jul, [facility] [place] [facility] [address] [id number] [place] [address] 73[address] Jul, [facility] [place] [facility] [address] [id number] [place] [address] Jul, [facility] [place] [facility] [address] [id number] [place] [address] Jul, [facility] [place] [facility] [address] [facility] [id number] [place] [address] Jul, [facility] [place] [facility] [address] [facility] [id number] [place] [address] Jul, [facility] [place] [facility] [address] [id number] [place] [address] 24 Jun, 2010 [facility] [place] [facility] [address] [id number] [place] [address] 28[address] Jun, [facility] [place] [facility] [address] [facility] [id number] [place] [address] Jun, [facility] [place] [facility] [address] [id number] [place] [address]- 1567 13 Jun, 2010 [facility] [place] [facility] [address] [id number] [place] [address] 16 Apr, 2010 [facility] [place] [facility] [address] [id number] [place] [address] 279[address] 20 Mar, 2010 [facility] [place] [facility] [address] [id number] [place] [address] 17 Feb, 2010 [facility] [place] [facility] [address] [id number] [place] [address]- 1397 11 Jan, 2010 [facility] [place] [facility] [address] [id number] [place] [address]- 2616 15 Dec, 2009 [facility] [place] [facility] [address] [id number] [place] [address] Nov, [facility] [place] [facility] [address] [id number] [place] [address]- [address] 31 Aug, 2009 [facility] [place] [facility] [address] [id number], [place] [address] Aug, [facility] [place] [facility] [address] [id number], [place] [address] Aug, [facility] [place] [facility] [address] [id number], [place] [address] Jul, [facility] [place] [facility] [address] [id number], [place] [address] Jul, [facility] [place] [facility] [address] [id number], [place] [address]- [address] 07 Jul, 2009 [facility] [place] [facility] [address] [id number], [place] [address] 30 Jun, 2009 [facility] [place] [facility] [address] [id number], [place] [address]- [address] 29 Jun, 2009 [facility] [place] [facility] [address] [id number], [place] [address]- [address] 26 Jun, 2009 [facility] [place] [facility] [address] [id number], [place] [address] Jun, [facility] [address] [id number], [place] [address] Jun, [facility] [address] [id number], [place] [address] Jun, [facility] [id number], [place] [address] Apr, [facility] [id number], [place] [address] Apr, [facility] [id number], [place] [address] Feb, [facility] [id number], [place] [address] January, [facility] [id number], [place] [address] Dec, IMMUNIZATIONS No Known Immunizations SOCIAL HISTORY Never Assessed REASON FOR VISIT Diabetic matilda Esteban RN PLAN OF CARE Activity Details Follow Up prn Reason: VITAL SIGNS Height 67 in 2017-07-12 Weight 374 lbs 2017-07-12 Temperature 97.8 degrees Fahrenheit 2017-07-12 Heart Rate 92 bpm 2017-07-12 Respiratory Rate 18 2017-07-12 BMI 58.57 kg/m2 2017-07-12 Blood pressure systolic 158 mmHg 2017-07-12 Blood pressure diastolic 82 mmHg 2017-07-12 MEDICATIONS Medication Instructions Dosage Frequency Start Date End Date Duration Status Naproxen 500 MG Orally 2 times a day 1 tablet as needed 12h Active Vitamin D3 1,000 unit 2 capsule by Oral route 1 time per day Apr, Active Clopidogrel Bisulfate 75 MG Orally Once a day 1 tablet 24h Active Valium 5 MG Orally three times a day 1 tablet as needed 8h Oct, Active Potassium Chloride Kathi ER 20 MEQ Orally Once a day 2 tablets 24h Active NovoLog Flexpen 100 UNIT/ML INJECT 30 UNITS SUBCUTANEOUSLY WITH BREAKFAST, 30 UNITS WITH LUNCH AND 40 UNITS WITH EVENING MEAL 30 Active Victoza 18 MG/3ML INJECT 1.8MG SUBCUTANEOUSLY ONCE DAILY 30 Active Flomax 0.4 mg Orally Once a day 1 capsule 30 minutes after the same meal each day 24h 24 Aug, 2015 90 Active Nexium 40 MG Orally Once a day 1 capsule 24h 90 Active Trintellix 20 mg Orally Once a day 1 tablet 24h Active Clonidine HCl 0.1 MG Orally 2 times a day 1 tablet 12h 30 Active Lantus 100 UNIT/ML Subcutaneous 2 times a day inject 100 units 12h Active Imbruvica 140 MG Orally Once a day 3 capsules in the evening 24h Oct, Active Ambien 10 mg Orally Once a day 1 tablet at bedtime 24h Nov, Active Percocet 10-325 MG Orally 4 times a day 1 tablet as needed 6h Jun, 28 days Active Allopurinol 300 MG Orally Once a day 1 tablet 24h Mar, 90 days Active Incruse Ellipta 62.5 MCG/INH Inhalation Once a day 1 puff 24h 30 Active Zetia 10 MG Orally Once a day 1 tablet 24h Active Zofran 4 MG Orally 3 times a day prn nausea and vomiting 1 tablet 5 Active Aspirin 81 mg 1 tablet by Oral route 1 time per day Apr, Active Symbicort 80-4.5 MCG/ACT Inhalation Twice a day 2 puffs 12h 30 Active Gabapentin 300 MG Orally 3 times a day 2 capsules 8h Mar, Active Furosemide 40 mg Orally twice a day 1 tablet 12h Mar, 05 days Active Atorvastatin Calcium 20 MG Orally Once a day 1 tablet at bedtime 24h Active Abilify 30 MG Orally Once a day 1 tablet 24h Active Metoprolol Succinate ER 50 mg Orally twice a day 1 tablet 12h 90 Active Losartan Potassium 100 MG Orally Once a day 1 tablet 24h Active Fluticasone Propionate 50 MCG/ACT Nasally Once a day 1 spray in each nostril 24h 30 days Active Ventolin HFA 108 (90 Base) MCG/ACT Inhalation every 4 hrs 2 puffs as needed 4h Dec, 30 days Active RESULTS No Results PROCEDURES Procedure Date Ordered Result Body Site [facility] VISIT ESTABLISHED PATIENT Jul 12, 2017 INSTRUCTIONS MEDICATIONS ADMINISTERED No Known Medications MEDICAL (GENERAL) HISTORY Type Description Date Medical History type II diabetes Medical History coronary artery disease stress test 01/5015 Medical History chronic obstructive pulmonary disease (COPD) Medical History gastroesophageal reflux disease (GERD) Medical History acute renal failure Medical History erectile dysfunction Medical History hyperlipidemia Medical History obesity Medical History skin cancer-basal cell [facility] (removed) Medical History Arthritis Medical History degenerative [...] release (Left) 2000 Surgical History EGD ([facility]) 2009 Surgical History colonoscopy 2009 ([facility]), 2013 ([place]) Surgical History heart 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 04/2014 Surgical History carotid US 05/2014 Surgical History resection of skin cancer from [facility] Surgical History Biopsy of Lung Bilateral/Left lung lymph node 09/2016 Surgical History Bone Marrow Biopsy Surgical History port in the right chest wall 12/2016 Hospitalization History [facility] low potassium, low magnesium, chest painina 01/2015 Hospitalization History inability to urinate 09/16/15 Hospitalization History [facility] mental health early Hospitalization History hyperkalemia 10/2017 Hospitalization History fluid in lung
--- OUTSIDE RECORDS SUMMARY | 2018-08-08 12:24 | XMS REPORT ---
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 Name Role Phone NOEMI WASHBURN Unavailable PROBLEMS Type Condition ICD9-CM Code SSI14-QK Code Onset Dates Condition Status SNOMED Code Problem Chronic lymphocytic leukemia C91.10 Active 74507477 Problem Insomnia, unspecified type G47.00 Active 822466535 Problem Lymphocytosis D72.820 Active 03181134 Problem Anxiety F41.9 Active 29334615 Problem Eye exam abnormal R93.8 Active 868639216 Problem Morbid obesity E66.01 Active 127937307 Problem Diabetic polyneuropathy associated with type 2 diabetes mellitus E11.42 Active 30822496 Problem Essential hypertension I10 Active 07487802 Problem Falling R29.6 Active 345761593 Problem 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 Active 205630095 Problem Cough R05 Active 63437013 Problem Dysuria R30.0 Active 24134893 Problem Eustachian tube dysfunction, unspecified laterality H69.80 Active 12749894 Problem Bilateral primary osteoarthritis of knee M17.0 Active 093064653 Problem Polyneuropathy associated with underlying disease G63 Active 165728012 Problem Anemia of chronic illness D63.8 Active 131104631 Problem Retinal edema H35.81 Active 1565450 Problem DM neuro manif type II E11.49 Active 00048992 Problem Diabetes E11.9 Active 29342398 Problem Hypokalemia E87.6 Active 89448833 Problem Benign prostatic hyperplasia with lower urinary tract symptoms, unspecified morphology N40.1 Active 729827714 Problem Reactive airway disease J45.909 Active 081848165415 Problem Bipolar I disorder, most recent episode (or current) mixed, moderate F31.62 Active 36835280 Problem Chronic pain G89.29 Active 15021444 Problem Leukocytosis D72.829 Active 146800935 ALLERGIES No Information ENCOUNTERS Encounter Location Date Diagnosis [facility] [address], [place] [address] Apr, [facility] [address], [place] [address] Mar, [facility] [address], [place] [address] Mar, [facility] [address] [address] Mar, [facility] [address], [place] [address] Mar, Bipolar I disorder, most recent episode (or current) mixed, moderate F31.62 [facility] [address], [place] [address] Feb, Bipolar I disorder, most recent episode (or current) mixed, moderate F31.62 [facility] [address], [place] [address] Feb, Chronic pain G89.29 [facility] [address], [place] [address] Feb, Decubitus ulcer of right foot, stage 3 L89.893 and BMI 50.0- 59.9, adult Z68.43 [facility] [address], [place] [address] Feb, Bipolar I disorder, most recent episode (or current) mixed, moderate F31.62 [facility] [address], [place] [address] 9[address] Feb, [facility] [address], [place] [address] January, [facility] [address], [place] [address] 69[address] January, Chronic pain G89.29 [facility] [address], [place] [address] January, Bipolar I disorder, most recent episode (or current) mixed, moderate F31.62 [facility] [id number] [place] [address] 43641- 7567 January, Bipolar I disorder, most recent episode (or current) mixed, moderate F31.62 [facility] [id number] [place] [address] 57239- 0082 Dec, Bipolar I disorder, most recent episode (or current) mixed, moderate F31.62 and BMI 50.0-59.9, adult Z68.43 [facility] [id number] [place] [address] 31808- 8205 Dec, Bipolar I disorder, most recent episode (or current) mixed, moderate F31.62 [facility] [id number] [place] [address] 31274- 9949 Dec, Chronic pain G89.29 [facility] [address] 8[address]64- 9976 Dec, DM neuro manif type II E11.49 ; Right flank pain R10.9 ; nursing home 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 Z79.891 ; Encounter for medication monitoring Z51.81 and BMI 50.0-59.9, adult Z68.43 [facility] [id number] [place] [address] 26089- 5875 Dec, Bipolar I disorder, most recent episode (or current) mixed, moderate F31.62 [facility] [id number] [place] [address] 51795- 2811 Nov, Bipolar I disorder, most recent episode (or current) mixed, moderate F31.62 [facility] [id number] [place] [address] 13212- 4753 Nov, Chronic pain G89.29 [facility] [id number] [place] [address] 37709- 1259 Nov, Bipolar I disorder, most recent episode (or current) mixed, moderate F31.62 [facility] [id number] [place] [address] 91479- 1097 Nov, Hypokalemia E87.6 [facility] [address] [place]- 9926 Nov, Bipolar I disorder, most recent episode (or current) mixed, moderate F31.62 [facility] [address] 140835- 8367 Oct, Chronic pain G89.29 [facility] [address] 937466- 0910 Oct, BMI 50.0-59.9, adult Z68.43 and Bipolar I disorder, most recent episode (or current) mixed, moderate F31.62 [facility] [address] 54957- 0851 Oct, Bipolar I disorder, most recent episode (or current) mixed, moderate F31.62 [facility] [id number] [place] [address] 77615- 4180 Oct, [facility] [address] 946985- 5261 Oct, Hypokalemia E87.6 [facility] [id number] [place] [address] 88355- 4338 Oct, DM neuro manif type II E11.49 [facility] [id number] [place] [address] 21042- 6212 Oct, Bipolar I disorder, most recent episode (or current) mixed, moderate F31.62 [facility] [address] 40130- 8627 Oct, Bipolar I disorder, most recent episode (or current) mixed, moderate F31.62 [facility] [id number] [place] [address] 16984- 4246 14 Oct, 2017 Hyperkalemia E87.5 ; Falling R29.6 ; BMI 50.0-59.9, adult Z68.43 and Acute left ankle pain M25.572 [facility] [address] 70440- 6652 08 Oct, 2017 DM neuro manif type II E11.49 [facility] [address] 33369- 6043 Oct, [facility] [address] 02819- 0515 Sep, Chronic pain G89.29 [facility] [address] 30686- 3255 Sep, [facility] [address] 51838- 5389 Sep, Bilateral primary osteoarthritis of knee M17.0 [facility] [address] 15516- 2624 Sep, Generalized edema R60.1 [facility] [address] 39870- 7289 Sep, Bipolar I disorder, most recent episode (or current) mixed, moderate F31.62 [facility] [id number] [place] [address] 62160- 0818 Sep, Hypoxia R09.02 ; Other hypervolemia E87.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 ; Anemia of chronic illness D63.8 and BMI 50.0- 59.9, adult Z68.43 [facility] [address] 28187- 5505 Sep, [facility] [address] 54902- 1637 Sep, Bipolar I disorder, most recent episode (or current) mixed, moderate F31.62 [facility] [facility] [address], [place] [address] 28 Aug, 2017 Chronic pain G89.29 [facility] [id number] [place] [address] 68387- 1701 Aug, Generalized edema R60.1 [facility] [id number] [place] [address] 98636- 4710 Aug, [facility] [id number] [place] [address] 970066- 0640 Aug, [facility] [id number] [place] [address] 47119- 6022 14 Aug, 2017 Bipolar I disorder, most recent episode (or current) mixed, moderate F31.62 [facility] [id number] [place] [address] 68908- 7763 Aug, Bipolar I disorder, most recent episode (or current) mixed, moderate F31.62 [facility] [id number] [place] [address] 25702- 0087 04 Aug, 2017 Chronic pain G89.29 [facility] [id number] [place] [address] 82765- 4371 30 Jul, 2017 Bipolar I disorder, most recent episode (or current) mixed, moderate F31.62 [facility] [address] [place] [address] 29845- 3030 Jul, Bipolar I disorder, most recent episode (or current) mixed, moderate F31.62 and BMI 60.0-69.9, adult Z68.44 [facility] [address] [place] [address] 72989- 0918 16 Jul, 2017 Bipolar I disorder, most recent episode (or current) mixed, moderate F31.62 [facility] [address], [place] [address]- 9708 06 Jul, 2017 Chronic pain G89.29 [facility] [id number] [place] [address] 50741- 7571 Jul, Bipolar I disorder, most recent episode (or current) mixed, moderate F31.62 [facility] [address] [place] [address] 76505- 3963 Jun, Polyneuropathy associated with underlying disease G63 and Diabetes E11.9 [facility] [id number] [place] [address] 17805- 8042 Jun, Bipolar I disorder, most recent episode (or current) mixed, moderate F31.62 [facility] [address] [place] [address] 39009- 9711 Jun, Chronic pain G89.29 [facility] [id number] [place] [address] 99703- 8362 May, Bipolar I disorder, most recent episode (or current) mixed, moderate F31.62 [facility] [id number] [place] [address] 03057- 7532 May, Bipolar I disorder, most recent episode (or current) mixed, moderate F31.62 [facility] [id number] [place] [address] 62699- 2435 20 May, 2017 Diabetic polyneuropathy associated with type 2 diabetes mellitus E11.42 [facility] [address] [place] [address] 44191- 7763 18 May, 2017 Bipolar I disorder, most recent episode (or current) mixed, moderate F31.62 [facility] [address] [place] [address] 85855- 4975 13 May, 2017 Bipolar I disorder, most recent episode (or current) mixed, moderate F31.62 [facility] [id number] [place] [address] 78507- 7573 May, Chronic pain G89.29 [facility] [address] [place] [address] 64728- 1187 Apr, Bipolar I disorder, most recent episode (or current) mixed, moderate F31.62 [facility] [address], [place] [address]- 1336 Apr, [facility] [id number] [place] [address] 28872- 7076 Apr, Chronic pain G89.29 and DM neuro manif type II E11.49 [facility] [id number] [place] [address] 01229- 8776 Apr, [facility] [id number] [place] [address] 91497- 2876 Apr, Bipolar I disorder, most recent episode (or current) mixed, moderate F31.62 [facility] [id number] [place] [address] 71109- 4401 Apr, Chronic pain G89.29 [facility] [id number] [place] [address] 09466- 8021 Apr, Iliotibial band syndrome, left M76.32 [facility] [id number] [place] [address] 18163- 0021 Apr, Bipolar I disorder, most recent episode (or current) mixed, moderate F31.62 [facility] [id number] [place] [address] 46957- 3505 Mar, Bipolar I disorder, most recent episode (or current) mixed, moderate F31.62 [facility] [address] [place] [address] 61918- 9302 Mar, Bipolar I disorder, most recent episode (or current) mixed, moderate F31.62 [facility] [address] [place] [address] 79078- 7885 Mar, [facility] [id number] [place] [address] 39741- 4347 Mar, Bipolar I disorder, most recent episode (or current) mixed, moderate F31.62 [facility] [address] [place] [address] 66304- 5392 Mar, Chronic pain G89.29 [facility] [address], [place] [address]- 6369 Mar, Bipolar I disorder, most recent episode (or current) mixed, moderate F31.62 [facility] [address], [place] [address]- 6471 Mar, Bipolar I disorder, most recent episode (or current) mixed, moderate F31.62 [facility] [id number] [place] [address] 81508- 9161 Mar, Acute pain of left knee M25.562 ; Left hip pain M25.552 ; Generalized edema R60.1 and Tongue swelling R22.0 [facility] [id number] [place] [address] 81450- 5213 Mar, [facility] [id number] [place] [address] 12750- 4570 Feb, Chronic pain G89.29 [facility] [id number] [place] [address] 63697- 1825 Feb, Diabetes E11.9 [facility] [id number] [place] [address] 71201- 0617 January, Chronic pain G89.29 [facility] [address] [place] [address] 28737- 3663 January, [facility] [id number] [place] [address] 34958- 9148 January, Bipolar I disorder, most recent episode (or current) mixed, moderate F31.62 [facility] [id number] [place] [address] 92777- 2522 Dec, Bipolar I disorder, most recent episode (or current) mixed, moderate F31.62 [facility] [address], [place] [address]- 1797 Dec, Chronic pain G89.29 [facility] [address] [address]- 1000 Dec, Bipolar I disorder, most recent episode (or current) mixed, moderate F31.62 [facility] [id number] [place] [address] 49243- 0759 Dec, Diabetes E11.9 ; Essential hypertension I10 ; Chronic pain G89.29 and Morbid obesity E66.01 [facility] [id number] [place] [address] 44049- 8060 Dec, [facility] [id number] [place] [address] 20065- 9697 Dec, Bipolar I disorder, most recent episode (or current) mixed, moderate F31.62 [facility] [id number] [place] [address] 56055- 4278 Dec, Bipolar I disorder, most recent episode (or current) mixed, moderate F31.62 [facility] [id number] [place] [address] 99457- 6446 Nov, Chronic pain G89.29 [facility] [id number] [place] [address] 40419- 9513 Nov, Bipolar I disorder, most recent episode (or current) mixed, moderate F31.62 [place] [id number] [place] [address] 45570- 1720 Nov, [facility] [id number] [place] [address] 52066- 9023 Nov, Bipolar I disorder, most recent episode (or current) mixed, moderate F31.62 [facility] [id number] [place] [address] 89539- 9827 Nov, Bipolar I disorder, most recent episode (or current) mixed, moderate F31.62 [facility] [address] [place] [address] 47646- 1677 Nov, [facility] [id number] [place] [address] 82184- 5134 Nov, [facility] [address], [place] [address]- 8849 Nov, [facility] [id number] [place] [address] 52224- 4024 Oct, Chronic pain G89.29 [facility] [address] [place] [address] 09569- 9196 Oct, Bipolar I disorder, most recent episode (or current) mixed, moderate F31.62 [facility] [address] [place] [address] 02317- 5159 Oct, [facility] [id number] [place] [address] 41747- 5553 Oct, Chronic pain G89.29 ; Diabetes E11.9 ; Anxiety F41.9 and 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 [facility] [id number] [place] [address] 84989- 0594 Oct, [facility] [address] [place] [address] 56236- 6109 Oct, Diabetes E11.9 [facility] [address] [place] [address] 54047- 7005 Oct, Bipolar I disorder, most recent episode (or current) mixed, moderate F31.62 [facility] [address], [place] [address]- 9629 Sep, Chronic pain G89.29 [facility] [address], [place] [address]- 0695 Sep, Chronic pain G89.29 [facility] [id number] [place] [address] 99076- 9845 Aug, Chronic pain G89.29 [facility] [address] [place] [address] 94518- 4934 Jul, [facility] [id number] [place] [address] 16232- 5764 Jul, Diabetes E11.9 [facility] [id number] [place] [address] 01367- 1261 Jul, Chronic pain G89.29 [facility] [address] [place] [address] 11528- 3551 Jul, Bipolar I disorder, most recent episode (or current) mixed, moderate F31.62 [facility] [id number] [place] [address] 24329- 6047 Jun, Bipolar I disorder, most recent episode (or current) mixed, moderate F31.62 [facility] [id number] [place] [address] 11598- 5680 Jun, [facility] [id number] [place] [address] 29283- 9261 Jun, Bipolar I disorder, most recent episode (or current) mixed, moderate F31.62 [facility] [id number] [place] [address] 96383- 5710 30 May, 2016 Insomnia, unspecified type G47.00 [facility] [id number] [place] [address] 49304- 4577 May, Bipolar I disorder, most recent episode (or current) mixed, moderate F31.62 [place] [place] [id number] [place] [address] 11428- 7282 14 May, 2016 [place] [facility] [id number] [place] [address] 14808- 1831 08 May, 2016 Bipolar I disorder, most recent episode (or current) mixed, moderate F31.62 [place] [id number] [place] [address] 30548- 2264 06 May, 2016 Diabetes E11.9 and Essential hypertension I10 [facility] [id number] [place] [address] 04268- 8041 Apr, Chronic pain G89.29 [facility] [address], [place] [address]- 6680 Apr, Bipolar I disorder, most recent episode (or current) mixed, moderate F31.62 [facility] [address] [place] [address] 88724- 3792 Apr, [place] [id number] [place] [address] 29626- 8999 Apr, [place] [id number] [place] [address] 83607- 4893 Mar, Chronic pain G89.29 ; Headache, unspecified headache type R51 ; Neuropathy G62.9 ; Pain of right hip joint M25.551 and Essential hypertension I10 [facility] [address] [place] [address] 14752- 3081 Mar, Chronic pain G89.29 [facility] [id number] [place] [address] 52133- 0723 Mar, Bipolar I disorder, most recent episode (or current) mixed, moderate F31.62 [facility] [id number] [place] [address] 44004- 5981 Feb, Bipolar I disorder, most recent episode (or current) mixed, moderate F31.62 and Insomnia, unspecified type G47.00 [place] [address] [place] [address] 41460- 3768 Feb, Chronic pain G89.29 [facility] [id number] [place] [address] 15529- 7849 Feb, Bipolar I disorder, most recent episode (or current) mixed, moderate F31.62 [facility] [id number] [place] [address] 44187- 4390 January, Bipolar I disorder, most recent episode (or current) mixed, moderate F31.62 [facility] [id number] [place] [address] 00816- 4579 January, Chronic pain G89.29 [facility] [id number] [place] [address] 36709- 8374 January, Chronic pain G89.29 and Essential hypertension I10 [facility] [id number] [place] [address] 39513- 4753 January, Bipolar I disorder, most recent episode (or current) mixed, moderate F31.62 [facility] [address] 99635- 8835 Dec, [facility] [address] 96623- 8023 Dec, [facility] [address] 07200- 9551 Dec, [facility] [address] 84539- 0020 Dec, [facility] [address] 34312- 3077 Nov, Reactive airway disease J45.909 [facility] [address] 17093- 2432 Nov, [facility] [id number] [place] [address] 11870- 1789 Nov, [facility] [id number] [place] [address] 92198- 3990 Nov, [facility] [id number] [place] [address] 66958- 4606 Nov, [facility] [address] 79344- 3678 Nov, Onychomycosis B35.1 ; Hammertoe M20.40 ; [place] or callus L84 and DM neuro manif type II E11.49 [facility] [id number] [place] [address] 64462- 2917 15 Nov, 2015 Chronic pain G89.29 ; Leukocytosis D72.829 and Diabetes E11.9 [facility] [place] [id number] [place] [address] 98235- 0438 Nov, [facility] [id number] [place] [address] 51552- 1716 Oct, Bronchitis J40 [facility] [facility] [id number] [place] [address] 72442- 1539 Oct, [place] [address] [address]- [address] Oct, [place] [address] 03701- 3670 Oct, Mastoiditis, unspecified laterality H70.90 and Type 2 diabetes mellitus with complication E11.8 [place] [address] [place] [id number] [place] [address] 38846- 4496 Sep, [place] [address] [place] [id number] [place] [address] 31503- 7345 Sep, Dysuria R30.0 ; Cough R05 ; Benign prostatic hyperplasia with lower urinary tract symptoms, unspecified morphology N40.1 ; Hypokalemia E87.6 and Eustachian tube dysfunction, unspecified laterality H69.80 [place] [address] [place] [id number] [place] [address] 46990- 1310 Sep, Moderate mixed bipolar I disorder F31.62 [place] [address] [place] [id number] [place] [address] 08502- 8344 Sep, Hypokalemia E87.6 [place] [address] [place] [id number] [place] [address] 05886- 2787 Sep, [place] [address] [place] [id number] [place] [address] 06664- 8693 Sep, Upper respiratory tract infection, unspecified type J06.9 [place] [address] [place] [id number] [place] [address] 69215- 9451 Aug, [facility] [address] [address] [address] Aug, Dysuria R30.0 [facility] [address], [place] [address] 3[address] Aug, [facility] [address], [place] [address] 8153 Jul, [facility] [id number] [place] [address] 697743- 4639 Jul, [facility] [address], [place] [address] 7117 Jul, [facility] [id number] [place] [address] 637873- 1598 Jul, [facility] [id number] [place] [address] 86883- 1239 Jun, [facility] [id number] [place] [address] 14920- 3763 Jun, [facility] [id number] [place] [address] 86477- 4036 Jun, [facility] [address], [place] [address] 6939 May, [facility] [address], [place] [address] 4366 May, Bipolar I disorder, most recent episode (or current) mixed, moderate 296.62 [facility] [address], [place] [address] 2868 16 May, 2015 [facility] [address] [address] [address] 02 May, 2015 Bipolar I disorder, most recent episode (or current) mixed, moderate 296.62 and Major depressive disorder, recurrent episode, severe, specified as with psychotic behavior 296.34 [facility] [address], [place] [address] 9494 May, Bipolar I disorder, most recent episode (or current) mixed, moderate 296.62 [facility] [id number] [place] [address] 325988- 9168 May, [facility] [id number] [place] [address] 30584- 8303 Apr, [facility] [id number] [place] [address] 11234- 4651 Apr, [facility] [id number] [place] [address] 64047- 5343 Apr, Unspecified disorder of kidney and ureter 593.9 and Diabetes mellitus type 2, uncontrolled 250.02 [facility] [id number] [place] [address] 63847- 7449 Apr, [facility] [id number] [place] [address] 15764- 7471 Apr, [facility] [id number] [place] [address] 65654- 9804 Apr, [facility] [id number] [place] [address] 78552- 0208 Apr, [facility] [id number], [place] [address]- 2556 Apr, Diabetes mellitus type II, uncontrolled 250.02 [facility] [address], [place] [address]- 6434 Apr, [facility] [id number] [place] [address] 36356- 6657 Mar, [facility] [id number] [place] [address] 59205- 7531 Mar, [facility] [address], [place] [address]- 4145 Mar, [facility] [id number] [place] [address] 18356- 8188 Mar, Major depressive disorder, recurrent episode, severe, specified as with psychotic behavior 296.34 and Bipolar I disorder, most recent episode (or current) mixed, moderate 296.62 [facility] [id number] [place] [address] 94304- 6712 Mar, Diabetes 250.00 ; Anuria 788.5 ; Nausea and vomiting 787.01 and Diarrhea 787.91 [facility] [id number] [place] [address] 00003- 9629 Mar, Diabetes 250.00 [facility] [id number] [place] [address] 66232- 5342 Mar, [facility] [id number] [place] [address] 68486- 0568 Mar, Diabetes 250.00 [facility] [id number] [place] [address] 31285- 6809 Mar, [facility] [id number] [place] [address] 51692- 1349 Mar, [facility] [id number] [place] [address] 47543- 7478 Mar, [facility] [id number] [place] [address] 17461- 6671 Mar, [facility] [id number] [place] [address] 37019- 9707 Mar, Bipolar I disorder, most recent episode (or current) mixed, moderate 296.62 and Major depressive disorder, recurrent episode, severe, specified as with psychotic behavior 296.34 [facility] [id number] [place] [address] 63175- 0699 Mar, Magnesium deficiency 275.2 ; Hypokalemia 276.8 ; Nausea & vomiting 787.01 and Diabetes mellitus type 2, uncontrolled 250.02 [facility] [address], [place] [address]- 2932 Feb, [facility] [id number] [place] [address] 25097- 4945 Feb, Bipolar I disorder, most recent episode (or current) mixed, moderate 296.62 [facility] [id number] [place] [address] 25358- 3712 Feb, Nausea and vomiting 787.01 ; Left elbow pain 719.42 ; Anuria 788.5 and Diabetes 250.00 [facility] [address] [address]- 5077 Feb, [facility] [address] 08055- 1125 Feb, Hypopotassemia 276.8 and Hypokalemia 276.8 [place] [id number] [place] [address] 17344- 9232 Feb, Hypopotassemia 276.8 and Hypokalemia 276.8 [place] [id number] [place] [address] 08912- 6696 Feb, Seborrheic keratoses 702.19 [place] [id number] [place] [address] 80285- 6075 Feb, Hypopotassemia 276.8 and Low magnesium levels 275.2 [place] [id number] [place] [address] 10869- 5449 January, [facility] [id number] [place] [address] 49721- 4007 January, [facility] [id number] [place] [address] 55139- 7589 January, [facility] [id number] [place] [address] 43900- 0092 January, Scalp lesion 709.9 [facility] [id number] [place] [address] 64595- 5138 January, [facility] [address] 58933- 4308 30 Dec, 2014 Tear of medial cartilage or meniscus of knee, current 836.0 and 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 [facility] [address] [id number] [place] [address]- 1326 Dec, [facility] [address] [id number], [place] [address]- 1056 Dec, [facility] [address] [facility] [id number], [place] [address] 2546 Dec, Squamous cell carcinoma, 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 [facility] [address] [id number] [place] [address]- 0106 14 Dec, 2014 [facility] [id number], [place] [address]- 3238 Dec, [facility] [id number], [place] [address]- 8364 Nov, [facility] [address] [facility] [id number], [place] [address]- 8061 Nov, [facility] [address] [facility] [id number], [place] [address]- 5267 Nov, [facility] [address] [facility] [id number], [place] [address]- 0012 Nov, [facility] [id number], [place] [address]- 7649 Nov, [facility] [address] [facility] [id number] 3721 Nov, [facility] [address] [facility] [id number]- 7649 Nov, [facility] [address] [facility] [id number]- 9127 Nov, [facility] [address] [facility] [id number]20[place]- 8106 Nov, [facility] [address] [id number] [place] [address]- 3054 Nov, [facility] [place] [facility] [address] [id number] [place] [address]- 5632 Nov, [facility] [place] [facility] [address] [id number] [place] [address]- 2707 Nov, [facility] [place] [facility] [address] [id number] [place] [address]- 3848 Oct, 2014 [facility] [place] [facility] [address] [id number] [place] [address]- 9231 Oct, 2014 [facility] [place] [facility] [address] [id number] [place] [address]- 9216 Oct, 2014 [facility] [place] [facility] [address] [facility] [id number] [place] [address]- 2789 Oct, 2014 [facility] [place] [facility] [address] [facility] [id number] [place] [address]- 5642 Oct, 2014 [facility] [place] [facility] [address] [facility] [id number] [place] [address]- 9714 Oct, [facility] [place] [facility] [address] [facility] [id number] [place] [address]- 3944 Oct, [facility] [place] [facility] [address] [facility] [id number] [place] [address]- 6974 Oct, [facility] [place] [facility] [address] [facility] [id number], [place] [address]- 3031 Oct, [facility] [place] [facility] [address] [facility] [id number] [place] [address]- 4664 Sep, [facility] [place] [facility] [address] [id number] [place] [address]- 4206 Sep, [facility] [place] [facility] [address] [facility] [id number] [place] [address]- 5947 Sep, [facility] [place] [facility] [address] [facility] [id number], [place] [address]- 1055 Sep, [facility] [place] [facility] [address] [id number] [place] [address]- 1447 Sep, [facility] [place] [facility] [address] [id number] [place] [address]- 0549 Sep, [facility] [place] [facility] [address] [id number] [place] [address]- 0546 Sep, [facility] [place] [facility] [address] [id number] [place] [address]- 5678 Sep, [facility] [place] [facility] [address] [id number] [place] [address]- 6428 Sep, [facility] [place] [facility] [address] [id number] [place] [address]- 0339 Sep, [facility] [place] [facility] [address] [id number] [place] [address]- 0228 Sep, [facility] [place] [facility] [address] [id number] [place] [address]- 3907 Sep, [facility] [place] [facility] [address] [id number] [place] [address]- 9730 Sep, [facility] [place] [facility] [address] [id number] [place] [address]- 9217 Sep, [facility] [place] [facility] [address] [id number] [place] [address]- 1253 Sep, [facility] [place] [facility] [address] [id number] [place] [address]- 4529 Sep, [facility] [place] [facility] [address] [id number] [place] [address]- 2978 Aug, [facility] [place] [facility] [address] [id number] [place] [address]- 2871 Aug, [facility] [place] [facility] [address] [id number] [place] [address]- 7323 Aug, [facility] [place] [facility] [address] [id number] [place] [address]- 8567 Aug, [facility] [address] [id number] [place] [address]- 1826 Aug, [facility] [address] [id number] [place] [address]- 0780 Aug, [facility] [address] [id number] [place] [address]- 4066 Aug, [facility] [address] [id number] [place] [address]- 6481 Aug, [facility] [address] [id number] [place] [address]- 9361 Aug, [facility] [address] [id number] [place] [address]- 3770 Aug, [facility] [address] [id number] [place] [address]- 4832 Aug, [facility] [address] [place] [id number] Aug, [facility] [address] [id number] [place] [address]- 9396 Aug, [facility] [address] [id number] [place] [address]- 2493 Aug, [facility] [address] [id number] [place] [address]- 5446 Aug, [facility] [address] [id number] [place] [address]- 9783 Aug, [facility] [address] [id number] [place] [address]- 4085 Aug, [facility] [address] [id number] [place] [address]- 8757 Aug, [facility] [address] [id number] [place] [address]- 6357 Aug, [facility] [place] [facility] [address] [id number] [place] [address]- 2085 Aug, [facility] [place] [facility] [address] [id number] [place] [address]- 8340 Aug, [facility] [place] [facility] [address] [id number] [place] [address]- 5519 Aug, [facility] [place] [facility] [address] [id number] [place] 6133 Aug, [facility] [place] [facility] [address] [id number] [place] [address]- 5635 Aug, [facility] [place] [facility] [address] [id number] [place] [address]- 5779 Aug, [facility] [place] [facility] [address] [id number] [place] [address]- 5429 Aug, [facility] [place] [facility] [address] [id number] [place] [address]- 7778 Aug, [facility] [place] [facility] [address] [id number] [place] [address]- 2992 Aug, [facility] [place] [facility] [address] [id number] [place] [address]- 7663 Aug, [facility] [place] [facility] [address] [id number] [place] [address]- 9385 Aug, [facility] [place] [facility] [address] [id number] [place] [address]- 3682 Jul, [facility] [place] [facility] [address] [id number] [place] [address]- 7891 Jul, [facility] [place] [facility] [address] [id number] [place] [address]- 2593 Jul, [facility] [place] [facility] [address] [id number] [place] 5962 Jul, [facility] [place] [facility] [address] [id number] [place] [address]- 1595 Jul, [facility] [place] [facility] [address] [id number] [place] [address]- 6901 Jul, [facility] [place] [facility] [address] [id number] [place] 4841 Jul, [facility] [place] [facility] [address] [id number] [place] 4065 Jul, [facility] [place] [facility] [address] [id number] [place] [address]- 4111 Jul, [facility] [place] [facility] [address] [id number] [place] [address]- 6877 Jul, [facility] [place] [facility] [address] [id number] [place] [address]- 3544 Jun, [facility] [place] [facility] [address] [id number] [place] [address]- 6031 Jun, [facility] [place] [facility] [address] [id number], [place] [address]- 8308 Jun, [facility] [place] [facility] [address] [id number] [place] [address]- 1295 Jun, [facility] [place] [facility] [address] [id number], [place] [address]- 4948 Jun, [facility] [place] [facility] [address] [id number], [place] [address]- 8557 Jun, [facility] [place] [facility] [address] [id number], [place] [address]- 8337 Jun, [facility] [place] [facility] [address] [id number] [place] [address]- 5572 Jun, [facility] [place] [facility] [address] [id number][place] 2221 Jun, [facility] [place] [facility] [address] [id number][place]- 3455 Jun, [facility] [place] [facility] [address] [id number] [place] [address] 2540 29 Sep, 2013 [facility] [place] [facility] [address] [id number] [place] [address] 2546 29 Sep, 2013 [facility] [place] [facility] [address] [id number] [place] [address] 2546 26 Sep, 2013 [facility] [place] [facility] [address] [id number] [place] [address] 2546 26 Sep, 2013 [facility] [place] [facility] [address] [id number] [place] [address] 2546 17 Sep, 2013 [facility] [place] [facility] [address] [id number] [place] [address]- 3481 17 Sep, 2013 [facility] [place] [facility] [address] [id number] [place] [address]- 2540 15 Sep, 2013 [facility] [place] [facility] [address] [id number] [place] [address] 2541 15 Sep, 2013 [facility] [place] [facility] [address] [id number] [place] [address]- 2540 15 Sep, 2013 [facility] [place] [facility] [address] [id number] [place] [address] 2548 15 Sep, 2013 [facility] [place] [facility] [address] [id number] [place] [address] 2547 10 Sep, 2013 [facility] [place] [facility] [address] [id number] [place] [address] 2546 10 Sep, 2013 [facility] [place] [facility] [address] [id number] [place] [address] 2548 09 Sep, 2013 [facility] [place] [facility] [address] [id number] [place] [address] 2546 09 Sep, 2013 [facility] [place] [facility] [address] [id number] [place] [address] 2545 04 Sep, 2013 [facility] [place] [facility] [address] [id number] [place] [address] 0591 May, [facility] [place] [facility] [address] [id number] [place] [address]- 0203 Apr, [facility] [place] [facility] [address] [id number] [place] [address]- 6641 Apr, [facility] [place] [facility] [address] [id number] [place] [address]- 2585 Apr, [facility] [place] [facility] [address] [id number] [place] [address]- 9734 Apr, [facility] [place] [facility] [address] [id number] [place] [address]- 0713 Apr, [facility] [place] [facility] [address] [id number] [place] [address]- 1597 Apr, [facility] [place] [facility] [address] [id number] [place] [address]- 5184 Apr, [facility] [place] [facility] [address] [id number] [place] [address]- 4824 Apr, [facility] [place] [facility] [address] [id number] [place] [address]- 0973 Apr, [facility] [place] [facility] [address] [id number] [place] [address]- 3541 Apr, [facility] [place] [facility] [address] [id number] [place] [address]- 5805 Apr, [facility] [place] [facility] [address] [id number] [place] [address]- 2476 Apr, [facility] [place] [facility] [address] [id number] [place] [address]- 0273 Apr, [facility] [place] [facility] [address] [id number] [place] [address]- 6079 Apr, [facility] [place] [facility] [address] [id number] [place] [address]- 4071 Apr, [facility] [place] [facility] [address] [id number] [place] [address]- 9722 Mar, 2013 [facility] [place] [facility] [address] [id number] [place] [address]- 8102 Mar, 2013 [facility] [place] [facility] [address] [id number] [place] [address]- 8474 Mar, 2013 [facility] [place] [facility] [address] [id number] [place] [address]- 5490 Mar, 2013 [facility] [place] [facility] [address] [id number] [place] [address] Mar, 2013 [facility] [place] [facility] [address] [id number] [place] [address] Mar, 2013 [facility] [place] [facility] [address] [id number] [place] [address] Mar, 2013 [facility] [place] [facility] [address] [id number] [place] [address] Mar, 2013 [facility] [place] [facility] [address] [id number] [place] [address] Mar, 2013 [facility] [place] [facility] [address] [id number] [place] [address] Mar, 2013 [facility] [place] [facility] [address] [id number] [place] [address] Mar, 2013 [facility] [place] [facility] [address] [id number] [place] [address] Mar, 2013 [facility] [place] [facility] [address] [id number] [place] [address] Mar, 2013 [facility] [place] [facility] [address] [id number] [place] [address] Mar, 2013 [facility] [place] [facility] [address] [id number] [place] [address]- 2004 Mar, 2013 [facility] [place] [facility] [address] [id number] [place] [address]- [address] Mar, 2013 [facility] [place] [facility] [address] [id number] [place] [address] Mar, [facility] [place] [facility] [address] [id number] [place] [address] Mar, [facility] [place] [facility] [address] [id number] [place] [address] Feb, [facility] [place] [facility] [address] [id number] [place] [address] Feb, [facility] [place] [facility] [address] [id number] [place] [address] Feb, [facility] [place] [facility] [address] [id number] [place] [address] Feb, [facility] [place] [facility] [address] [id number] [place] [address] Feb, [facility] [place] [facility] [address] [id number] [place] [address]- [address] Feb, [facility] [place] [facility] [address] [id number] [place] [address] Feb, [facility] [place] [facility] [address] [id number] [place] [address] Feb, [facility] [place] [facility] [address] [id number] [place] [address] Feb, [facility] [place] [facility] [address] [id number] [place] [address]- [address] Feb, [facility] [place] [facility] [address] [id number] [place] [address]- [address] Feb, [facility] [place] [facility] [address] [id number] [place] [address] Feb, [facility] [place] [facility] [address] [id number] [place] [address] Feb, [facility] [place] [facility] [address] [id number] [place] [address] Feb, [facility] [address] [id number] [place] [address] January, [facility] [place] [facility] [address] [id number] [place] [address] January, [facility] [place] [facility] [address] [id number] [place] [address] January, [facility] [place] [facility] [address] [id number] [place] [address] January, [facility] [place] [facility] [address] [id number] [place] [address] January, [facility] [place] [facility] [address] [id number] [place] [address] January, [facility] [place] [facility] [address] [id number] [place] [address] January, [facility] [place] [facility] [address] [id number] [place] [address] January, [facility] [place] [facility] [address] [id number] [place] [address]- [address] January, [facility] [place] [facility] [address] [id number] [place] [address]- [address] January, [facility] [place] [facility] [address] [id number] [place] [address] January, [facility] [place] [facility] [address] [id number] [place] [address]- [address] January, [facility] [place] [facility] [address] [id number] [place] [address] January, [facility] [place] [facility] [address] [id number] [place] [address] January, [facility] [place] [facility] [address] [id number] [place] [address] Dec, [facility] [place] [facility] [address] [id number] [place] [address]- [address] Dec, [facility] [place] [facility] [address] [id number] [place] [address]- [address] Dec, [facility] [place] [facility] [address] [id number] [place] [address]- [address] Dec, [facility] [place] [facility] [address] [id number] [place] [address] Dec, [facility] [place] [facility] [address] [address] [id number] [place] [address] Dec, [facility] [place] [facility] [address] [id number] [place] [address] 8[address] Dec, [facility] [place] [facility] [address] [id number] [place] [address] 9753 Dec, [facility] [place] [facility] [address] [id number] [place] [address] 1430 Dec, [facility] [place] [facility] [address] [id number] [place] [address]- 5815 Dec, [facility] [place] [facility] [address] [id number] [place] [address] 1851 Nov, [facility] [place] [facility] [address] [id number] [place] [address] 7218 Nov, [facility] [place] [facility] [address] [id number] [place] [address] 2098 Nov, [facility] [place] [facility] [address] [id number] [place] [address]- 4679 Nov, [facility] [place] [facility] [address] [id number] [place] [address]- 0378 Nov, [facility] [place] [facility] [address] [id number] [place] [address]- 5278 Nov, [facility] [place] [facility] [address] [id number] [place] [address]- 4428 Nov, [facility] [place] [facility] [address] [id number] [place] [address]- 8959 Nov, [facility] [place] [facility] [address] [id number] [place] [address]- 7785 Nov, [facility] [place] [facility] [address] [id number] [place] [address]- 2829 Nov, [facility] [place] [facility] [address] [id number] [place] [address]- 5782 Oct, [facility] [place] [facility] [address] [id number] [place] [address]- 3114 Oct, [facility] [place] [facility] [address] [id number] [place] [address]- 2226 Oct, [facility] [place] [facility] [address] [id number] [place] [address]- 2416 Oct, [facility] [place] [facility] [address] [id number] [place] [address]- 5774 Oct, [facility] [place] [facility] [address] [id number] [place] [address]- 9631 Oct, [facility] [place] [facility] [address] [id number] [place] [address]- 9716 Oct, [facility] [place] [facility] [address] [id number] [place] [address]- 1675 Oct, [facility] [place] [facility] [address] [id number] [place] [address]- 0722 Oct, [facility] [place] [facility] [address] [id number] [place] [address]- 6868 Oct, [facility] [place] [facility] [address] [id number] [place] [address]- 6074 Oct, [facility] [place] [facility] [address] [id number] [place] [address]- 1021 Oct, [facility] [place] [facility] [address] [id number] [place] [address]- 6091 Oct, [facility] [address] [id number] [place] [address]- 3310 Oct, [facility] [address] [id number] [place] [address] 9814 Sep, [facility] [address] [id number] [place] [address]- 0270 Sep, [facility] [address] [id number] [place] [address]- 6951 Sep, [facility] [address] [id number] [place] [address]- 0597 Sep, [facility] [address] [id number] [place] [address] 3933 Sep, [facility] [address] [id number] [place] [address] 2079 Sep, [facility] [address] [id number] [place] [address]- 7686 Sep, [facility] [address] [id number] [place] [address]- 4777 Sep, [facility] [address] [id number] [place] [address]- 3709 Sep, [facility] [address] [id number] [place] [address]- 8121 Sep, [facility] [address] [id number] [place] [address]- 3367 Aug, [facility] [place] [facility] [address] [id number] [place] [address]- 7886 Aug, [facility] [address] [id number] [place] [address]- 2999 Jul, [facility] [address] [id number] [place] [address] Jul, [facility] [place] [facility] [address] [id number] [place] [address]- 0258 Jul, [facility] [place] [facility] [address] [id number] [place] [address]- 7569 Jul, [facility] [place] [facility] [address] [id number] [place] [address]- 9162 Jul, [facility] [place] [facility] [address] [id number] [place] [address]- 5194 Jul, [facility] [place] [facility] [address] [id number] [place] [address]- 1602 Jul, [facility] [place] [facility] [address] [id number] [place] [address]- 8599 Jul, [facility] [place] [facility] [address] [id number] [place] [address]- 0639 Jul, [facility] [place] [facility] [address] [id number], [place] [address] 0040 Jul, [facility] [place] [facility] [address] [id number], [place] [address]- 0213 Jul, [facility] [place] [facility] [address] [id number], [place] [address]- 4996 Jul, [facility] [place] [facility] [address] [id number][place] [address]- 2423 Jul, [facility] [place] [facility] [address] [id number], [place] [address]- 7665 Jul, [facility] [place] [facility] [address] [id number], [place] [address]- 2812 Jul, [facility] [place] [facility] [address] [id number], [place] [address]- 6610 Jul, [facility] [place] [facility] [address] [id number], [place] [address]- 9467 Jul, [facility] [place] [facility] [address] [id number], [place] [address] 2543 Jul, 2012 [facility] [place] [facility] [address] [id number] [place] [address]- 4248 Jul, 2012 [facility] [place] [facility] [address] [id number], [place] [address]- 7194 Jun, 2012 [facility] [place] [facility] [address] [id number] [place] [address]- 3494 Jun, 2012 [facility] [place] [facility] [address] [id number] [place] [address]- 7997 Jun, 2012 [facility] [place] [facility] [address] [id number] [place] [address]- 2557 Jun, 2012 [facility] [place] [facility] [address] [id number] [place] [address]- 7976 Jun, 2012 [facility] [place] [facility] [address] [id number], [place] [address]- 4574 Jun, 2012 [facility] [place] [facility] [address] [id number], [place] [address]- 9354 Jun, 2012 [facility] [place] [facility] [address] [facility] [id number], [place] [address]- 2410 Jun, 2012 [facility] [place] [facility] [address] [facility] [id number], [place] [address]- 8424 Jun, [facility] [place] [facility] [address] [id number], [place] [address]- 8186 Jun, 2012 [facility] [place] [facility] [address] [id number], [place] [address]- 2855 Jun, [facility] [place] [facility] [address] [id number], [place] [address]- 7821 May, 2012 [facility] [place] [facility] [address] [facility] [id number], [place] [address]- 0948 25 May, 2012 [facility] [place] [facility] [address] [id number], [place] [address]- 6304 19 May, 2012 [facility] [place] [facility] [address] [id number] [place] [address]- 3735 17 May, 2012 [facility] [place] [facility] [address] [id number] [place] [address]- 2316 11 May, 2012 [facility] [place] [facility] [address] [id number] [place] [address] 2546 10 May, 2012 [facility] [place] [facility] [address] [id number] [place] [address] 2546 09 May, 2013 [facility] [place] [facility] [address] [id number] [place] [address] 2549 05 May, 2013 [facility] [place] [facility] [address] [id number] [place] [address]- 4833 Apr, [facility] [place] [facility] [address] [id number] [place] [address]- 5011 Apr, [facility] [place] [facility] [address] [id number] [place] [address]- 6200 Apr, [facility] [place] [facility] [address] [id number] [place] [address]- 4121 Apr, [facility] [place] [facility] [address] [id number] [place] [address]- 3052 Apr, [facility] [place] [facility] [address] [id number] [place] [address]- 9076 Mar, [facility] [place] [facility] [address] [id number] [place] [address]- 5308 Mar, [facility] [place] [facility] [address] [id number] [place] [address]- 4326 Mar, [facility] [place] [facility] [address] [id number] [place] [address]- 3971 Mar, [facility] [place] [facility] [address] [id number] [place] [address]- 0082 Mar, [facility] [place] [facility] [address] [id number] [place] [address] 2766 Mar, [facility] [address] [id number] [place] [address]- 0411 Mar, [facility] [place] [facility] [address] [id number] [place] [address]- 2331 Mar, [facility] [address] [id number] [place] [address]- 8638 Feb, [facility] [place] [facility] [address] [id number] [place] [address]- 5906 Feb, [facility] [address] [id number] [place] [address]- 5640 January, [facility] [address] [id number] [place] [address]- 8468 January, [facility] [address] [id number] [place] [address]- 7542 Dec, [facility] [place] [facility] [address] [id number] [place] [address]- 1706 Dec, [facility] [address] [id number] [place] [address]- 3756 Nov, [facility] [place] [facility] [address] [id number] [place] [address]- 6175 Nov, [facility] [place] [facility] [address] [id number][place] [address]- 4830 Nov, [facility] [place] [facility] [address] [id number], [place] [address]- 4636 Nov, [facility] [place] [facility] [address] [id number] [place] [address]- 8814 Oct, [facility] [place] [facility] [address] [id number] [place] [address]- 7320 Oct, [facility] [place] [facility] [address] [id number] [place] [address]- 2988 Oct, [facility] [place] [facility] [address] [id number] [place] [address]- 1924 26 Oct, 2012 [facility] [address] [id number] [place] [address]- 3236 16 Oct, 2012 [facility] [address] [id number] [place] [address] 2546 14 Oct, 2012 [facility] [address] [id number] [place] [address] 2546 08 Oct, 2012 [facility] [address] [id number] [place] [address] 2544 07 Oct, 2012 [facility] [address] [id number] [place] [address] 2546 03 Oct, 2012 [facility] [address] [id number] [place] [address]- 2094 30 Sep, 2012 [facility] [address] [id number] [place] [address]- 6638 29 Sep, 2012 [facility] [address] [id number] [place] [address]- 5532 Sep, [facility] [address] [id number] [place] [address]- 4981 Sep, [facility] [address] [id number] [place] [address]- 0680 17 Sep, 2012 [facility] [address] [id number] [place] [address]- 4726 Sep, [facility] [address] [id number] [place] [address] 2544 09 Sep, 2012 [facility] [place] [facility] [address] [id number] [place] [address] 2542 08 Sep, 2012 [facility] [place] [facility] [address] [id number] [place] [address] 2542 31 Aug, 2012 [facility] [place] [facility] [address] [id number] [place] [address]- 9983 Aug, [facility] [place] [facility] [address] [id number] [place] [address]- 3257 Aug, [facility] [place] [facility] [address] [id number] [place] [address]86 Aug, [facility] [place] [facility] [address] [facility] [id number] [place] 8311 Aug, [facility] [place] [facility] [address] [id number] [place] [address] Aug, [facility] [place] [facility] [address] [id number] [place] [address]- 7313 Aug, [facility] [place] [facility] [address] [id number] [place] [address]- 2541 Aug, [facility] [place] [facility] [address] [id number] [place] [address]- 6779 Jul, [facility] [place] [facility] [address] [id number], [place] [address]- 2517 Jul, [facility] [place] [facility] [address] [id number], [place] [address]- 4369 Jul, [facility] [place] [facility] [address] [id number], [place] [address]- 8158 Jul, [facility] [place] [facility] [address] [id number], [place] [address]- 5677 Jul, [facility] [place] [facility] [address] [id number], [place] [address]- 3474 Jul, [facility] [place] [facility] [address] [id number], [place] [address]- 0989 Jun, [facility] [place] [facility] [address] [id number], [place] [address]- 4358 Jun, [facility] [place] [facility] [address] [facility] [id number], [place] [address]- 1004 Jun, [facility] [place] [facility] [address] [id number] [place] [address]- 6449 23 Jun, 2012 [facility] [place] [facility] [address] [id number] [place] [address]- 8850 Jun, [facility] [place] [facility] [address] [id number] [place] [address]- 4856 Jun, [facility] [place] [facility] [address] [id number] [place] [address]- 9154 Jun, [facility] [place] [facility] [address] [id number] [place] [address]- 7459 Jun, [facility] [place] [facility] [address] [id number] [place] [address]- 5516 10 Jun, 2012 [facility] [place] [facility] [address] [id number] [place] [address]- 2437 26 May, 2012 [facility] [place] [facility] [address] [id number] [place] [address]- 9562 24 May, 2012 [facility] [place] [facility] [address] [id number] [place] [address]- 7695 18 May, 2012 [facility] [place] [facility] [address] [id number] [place] [address]- 0150 30 Apr, 2012 [facility] [place] [facility] [address] [id number] [place] [address]- 4969 29 Apr, 2012 [facility] [place] [facility] [address] [id number] [place] [address] 2541 Apr, [facility] [place] [facility] [address] [id number] [place] [address]- 3449 14 Apr, 2012 [facility] [place] [facility] [address] [id number] [place] [address]- 0684 Apr, [facility] [place] [facility] [address] [id number] [place] [address]- 4481 Apr, [facility] [place] [facility] [address] [id number] [place] [address]- 4663 Mar, [facility] [place] [facility] [address] [id number] [place] [address]- 5176 Mar, [facility] [place] [facility] [address] [id number] [place] [address]- 6430 Mar, [facility] [address] [id number] [place] [address]- 3159 Mar, [facility] [place] [facility] [address] [id number] [place] [address]- 8196 Feb, [facility] [address] [id number] [place] [address]- 3032 Feb, [facility] [address] [id number] [place] [address]- 8134 Feb, [facility] [address] [id number] [place] [address]- 3738 Feb, [facility] [address] [id number] [place] [address]- 4338 Feb, [facility] [address] [id number] [place] [address]- 3587 January, [facility] [address] [id number] [place] [address]- 2590 January, [facility] [address] [id number] [place] [address]- 9242 January, [facility] [place] [facility] [address] [id number] [place] [address]- 6844 January, [facility] [place] [facility] [address] [id number] [place] [address]- 6243 January, [facility] [place] [facility] [address] [id number] [place] [address]- 0016 January, [facility] [place] [facility] [address] [id number] [place] [address]- 2656 Dec, [facility] [place] [facility] [address] [id number], [place] [address]- 2246 24 Dec, 2011 [facility] [address] [id number] [place] [address]- 4836 17 Dec, 2011 [facility] [place] [facility] [address] [id number] [place] [address]- 5986 09 Dec, 2011 [facility] [place] [facility] [address] [facility] [id number] [place] [address]- 5436 06 Dec, 2011 [facility] [place] [facility] [address] [id number] [place] [address]- 6243 27 Nov, 2011 [facility] [place] [facility] [address] [id number] [place] [address]- 4365 14 Nov, 2011 [facility] [place] [facility] [address] [id number] [place] [address]- 6572 Nov, [facility] [address] [id number] [address]- 1717 Nov, [facility] [place] [facility] [address] [id number] [place] [address]- 7580 29 Oct, 2011 [facility] [place] [facility] [address] [id number] [place] [address]- 4719 28 Oct, 2011 [facility] [place] [facility] [address] [facility] [id number] [place] [address]- 7607 24 Oct, 2011 [facility] [place] [facility] [address] [id number] [place] [address]- 5916 13 Oct, 2011 [facility] [place] [facility] [address] [id number] [place] [address]- 9178 08 Oct, 2011 [facility] [place] [facility] [address] [id number] [place] [address]- 8433 Sep, [facility] [place] [facility] [address] [id number] [place] [address] 30 Sep, 2011 [facility] [place] [facility] [address] [facility] [id number], [place] [address] Sep, [facility] [place] [facility] [address] [id number] [place] [address] Sep, [facility] [place] [facility] [address] [id number] [place] [address] Sep, [facility] [place] [facility] [address] [id number] [place] [address] Sep, [facility] [place] [facility] [address] [id number] [place] [address] Aug, [facility] [place] [facility] [address] [id number] [place] [address] Aug, [facility] [place] [facility] [address] [id number] [place] [address] Aug, [facility] [place] [facility] [address] [id number] [place] [address] Jul, [facility] [place] [facility] [address] [id number] [place] [address] Jul, [facility] [place] [facility] [address] [id number] [place] [address] Jul, [facility] [place] [facility] [address] [id number] [place] [address] Jul, [facility] [place] [facility] [address] [id number] [place] [address] Jun, [facility] [place] [facility] [address] [id number] [place] [address] Jun, [facility] [place] [facility] [address] [id number] [place] [address] 68[address] Jun, [facility] [place] [facility] [address] [id number] [place] [address] Jun, [facility] [place] [facility] [address] [id number] [place] [address] Jun, [facility] [place] [facility] [address] [id number] [place] [address] 10 Jun, 2011 [facility] [place] [facility] [address] [id number] [place] [address] 11 Mar, 2011 [facility] [place] [facility] [address] [id number] [place] [address] 18 Dec, 2010 [facility] [place] [facility] [address] [id number] [place] [address] 11 Dec, 2010 [facility] [place] [facility] [address] [id number] [place] [address] 4286 18 Nov, 2010 [facility] [place] [facility] [address] [id number] [place] [address]- 1599 16 Nov, 2010 [facility] [place] [facility] [address] [id number] [place] [address] 10 Sep, 2010 [facility] [place] [facility] [address] [id number] [place] [address] 31 Aug, 2010 [facility] [place] [facility] [address] [id number] [place] [address] 3144 29 Aug, 2010 [facility] [place] [facility] [address] [id number] [place] [address] 8760 29 Aug, 2010 [facility] [place] [facility] [address] [id number] [place] [address]- 7538 29 Aug, 2010 [facility] [place] [facility] [address] [id number] [place] [address] 0452 27 Aug, 2010 [facility] [place] [facility] [address] [id number] [place] [address] 2546 14 Aug, 2010 [facility] [place] [facility] [address] [id number] [place] [address] 08 Aug, 2010 [facility] [place] [facility] [address] [id number] [place] [address]45 08 Aug, 2010 [facility] [place] [facility] [address] [id number] [place] [address]46 07 Aug, 2010 [facility] [place] [facility] [address] [id number] [place] [address] 8256 Aug, [facility] [address] [id number] [place] [address] 0186 Aug, [facility] [place] [facility] [address] [id number] [place] [address] 2546 Aug, [facility] [address] [id number] [place] [address] Jul, [facility] [place] [facility] [address] [id number] [place] [address] 2542 Jul, [facility] [address] [id number] [place] [address], [place] [address]- [address] Jul, [facility] [address] [id number] [place] [address] 57[address] Jul, [facility] [address] [facility] [id number] [place] [address] 0836 Jul, [facility] [address] [id number] [place] [address] 6960 Jul, [facility] [place] [facility] [address] [id number] [place] [address]- 9490 24 Jun, 2010 [facility] [address] [facility] [id number] [place] [address] 1259 Jun, [facility] [place] [facility] [address] [id number] [place] [address] 2543 Jun, [facility] [place] [facility] [address] [id number] [place] [address]- 7377 Jun, [facility] [place] [facility] [address] [id number] [place] [address]- 8228 16 Apr, 2010 [facility] [place] [facility] [address] [id number] [place] [address] 2546 Mar, [facility] [place] [facility] [address] [id number] [place] [address]- 7072 Feb, [facility] [place] [facility] [address] [id number] [place] [address]- 6540 11 Jan, 2010 [facility] [place] [facility] [address] [id number] [place] [address] 15 Dec, 2009 [facility] [place] [facility] [address] [id number] [place] [address]690 Nov, [facility] [place] [facility] [address] [id number] [place] [address]- 2074 Aug, [facility] [address] [id number] [place] [address]- 2084 Aug, [facility] [place] [facility] [address] [id number] [place] [address] 7998 Aug, [facility] [place] [facility] [address] [facility] [id number] [place] [address] Jul, [facility] [place] [facility] [address] [id number], [place] [address] Jul, [facility] [place] [facility] [address] [facility] [id number], [place] [address] Jul, [facility] [place] [facility] [address] [facility] [id number], [place] [address] 30 Jun, 2009 [facility] [facility] [address] [facility] [id number], [place] [address] 29 Jun, 2009 [facility] [address] [id number], [place] [address] Jun, [facility] [address] [id number], [place] [address] Jun, [facility] [address] [id number], [place] [address] Jun, [facility] [address] [facility] [id number] [id number] Jun, [facility] [address] [id number], [place] [address] Apr, [facility] [address] [facility] [id number], [place] [address] Apr, [facility] [address] [facility] [id number], [place] [address] Feb, [facility] [address] [facility] [id number], [place] [address] January, [facility] [address] [facility] [id number], [place] [address] Dec, IMMUNIZATIONS No Known Immunizations SOCIAL HISTORY Never Assessed REASON FOR VISIT Controlled Med Refill 11/21/17 PLAN OF CARE VITAL SIGNS MEDICATIONS Medication Instructions Dosage Frequency Start Date End Date Duration Status Percocet 10-325 MG Orally 4 times a day 1 tablet as needed 6h Oct, 28 days Active RESULTS No Results PROCEDURES No Known procedures INSTRUCTIONS MEDICATIONS ADMINISTERED No Known Medications MEDICAL (GENERAL) HISTORY Type Description Date Medical History type II diabetes Medical History coronary artery disease stress test 01/5015 Medical History chronic obstructive pulmonary disease (COPD) Medical History gastroesophageal reflux disease (GERD) Medical History acute renal failure Medical History erectile dysfunction Medical History hyperlipidemia Medical History obesity Medical History skin cancer-basal cell R sabianism (removed) Medical History Arthritis Medical History degenerative [...] History resection of skin cancer from Right sabianism Surgical History Biopsy of Lung Bilateral/Left lung lymph node 09/2016 Surgical History Bone Marrow Biopsy Surgical History port in the right chest wall 12/2016 Hospitalization History [facility] low potassium, low magnesium, chest painina 01/2015 Hospitalization History inability to urinate 09/16/15 Hospitalization History [facility] early Hospitalization History hyperkalemia 10/2017 Hospitalization History fluid in lung
--- OUTSIDE RECORDS SUMMARY | 2018-08-08 12:26 | XMS REPORT ---
Author Author COURTNEY VILLA [facility] Address [address] [place] [address] Care Team Providers Care Spinner Operator Name Role Phone COURTNEY VILLA Unavailable PROBLEMS Type Condition ICD9-CM Code VKB47-RD Code Onset Dates Condition Status SNOMED Code Problem Chronic lymphocytic leukemia C91.10 Active 36051719 Problem Insomnia, unspecified type G47.00 Active 460709938 Problem Lymphocytosis D72.820 Active 81885121 Problem Anxiety F41.9 Active 79335095 Problem Eye exam abnormal R93.8 Active 327210381 Problem Morbid obesity E66.01 Active 673098821 Problem Diabetic polyneuropathy associated with type 2 diabetes mellitus E11.42 Active 57740418 Problem Essential hypertension I10 Active 54699611 Problem Falling R29.6 Active 409713411 Problem 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 Active 992328620 Problem Cough R05 Active 19222730 Problem Dysuria R30.0 Active 67439141 Problem Eustachian tube dysfunction, unspecified laterality H69.80 Active 83419076 Problem Bilateral primary osteoarthritis of knee M17.0 Active 012947234 Problem Polyneuropathy associated with underlying disease G63 Active 561299547 Problem Anemia of chronic illness D63.8 Active 304327492 Problem Retinal edema H35.81 Active 9545316 Problem DM neuro manif type II E11.49 Active 40851515 Problem Diabetes E11.9 Active 34562461 Problem Hypokalemia E87.6 Active 04117945 Problem Benign prostatic hyperplasia with lower urinary tract symptoms, unspecified morphology N40.1 Active 620155298 Problem Reactive airway disease J45.909 Active 530904540369 Problem Bipolar I disorder, most recent episode (or current) mixed, moderate F31.62 Active 30905862 Problem Chronic pain G89.29 Active 82923651 Problem Leukocytosis D72.829 Active 219290720 ALLERGIES No Information ENCOUNTERS Encounter Location Date Diagnosis [facility] [address] [address] Mar, [place] [id number] [place] [address] 71501- 1991 January, [place] [id number] [place] [address] 56809- 3490 Dec, Bipolar I disorder, most recent episode (or current) mixed, moderate F31.62 and BMI 50.0-59.9, adult Z68.43 [place] [id number] [place] [address] 59163- 3832 Dec, Bipolar I disorder, most recent episode (or current) mixed, moderate F31.62 [place] [id number] [place] [address] 81223- 7083 Dec, Chronic pain G89.29 [place] [id number] [place] [address] 61577- 9680 Dec, DM neuro manif type II E11.49 ; Right flank pain R10.9 ; 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 ; Encounter for medication monitoring Z51.81 and BMI 50.0-59.9, adult Z68.43 [place] [id number] [place] [address] 67190- 9921 Dec, Bipolar I disorder, most recent episode (or current) mixed, moderate F31.62 [place] [id number] [place] [address] 95364- 8026 Nov, Bipolar I disorder, most recent episode (or current) mixed, moderate F31.62 [place] [id number] [place] [address] 57499- 4725 Nov, Chronic pain G89.29 [facility] [id number] [place] [address] 98277- 6516 Nov, Bipolar I disorder, most recent episode (or current) mixed, moderate F31.62 [place] [id number] [place] [address] 42373- 0708 Nov, Hypokalemia E87.6 [place] [id number] [place] [address] 20552- 9484 Nov, Bipolar I disorder, most recent episode (or current) mixed, moderate F31.62 [place] [id number] [place] [address] 22989- 7963 Oct, Chronic pain G89.29 [place] [address] 547558- 8916 Oct, BMI 50.0-59.9, adult Z68.43 and Bipolar I disorder, most recent episode (or current) mixed, moderate F31.62 [place] [id number] [place] [address] 83590- 2637 Oct, Bipolar I disorder, most recent episode (or current) mixed, moderate F31.62 [place] [address] 40397- 2141 Oct, [place] [address] 67818- 6845 Oct, Hypokalemia E87.6 [facility] [place] [id number] [place] [address] 69253- 8262 Oct, DM neuro manif type II E11.49 [facility] [place] [id number] [place] [address] 85030- 1852 Oct, Bipolar I disorder, most recent episode (or current) mixed, moderate F31.62 [facility] [id number] [place] [address] 80864- 3989 Oct, Bipolar I disorder, most recent episode (or current) mixed, moderate F31.62 [facility] [id number] [place] [address] 60104- 3775 14 Oct, 2017 Hyperkalemia E87.5 ; Falling R29.6 ; BMI 50.0-59.9, adult Z68.43 and Acute left ankle pain M25.572 [facility] [id number] [place] [address] 08838- 9734 08 Oct, 2017 DM neuro manif type II E11.49 [place] [id number] [place] [address] 22517- 0633 Oct, [place] [id number] [place] [address] 81793- 2996 Sep, Chronic pain G89.29 [facility] [id number] [place] [address] 86074- 8346 Sep, [place] [address] 03909- 8151 Sep, Bilateral primary osteoarthritis of knee M17.0 [place] [id number] [place] [address] 68365- 3605 Sep, Generalized edema R60.1 [place] [id number] [place] [address] 97448- 5145 Sep, Bipolar I disorder, most recent episode (or current) mixed, moderate F31.62 [place] [id number] [place] [address] 77468- 9498 15 Sep, 2017 Hypoxia R09.02 ; Other hypervolemia E87.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 ; Anemia of chronic illness D63.8 and BMI 50.0- 59.9, adult Z68.43 [place] [address] [place] [address] 38700- 4238 Sep, [place] [id number] [place] [address] 34155- 4733 Sep, Bipolar I disorder, most recent episode (or current) mixed, moderate F31.62 [place] [id number] [place] [address] 21838- 1093 Aug, Chronic pain G89.29 [facility] [address], [place] [address] 4191 Aug, Generalized edema R60.1 [facility] [address], [place] [address]- 2283 Aug, [facility] [id number] [place] [address] 537811- 6933 Aug, [facility] [id number] [place] [address] 14 Aug, 2017 Bipolar I disorder, most recent episode (or current) mixed, moderate F31.62 [place] [id number] [place] [address] 333028- 5887 Aug, Bipolar I disorder, most recent episode (or current) mixed, moderate F31.62 [place] [address] [place] [address] 41718- 7871 Aug, Chronic pain G89.29 [facility] [address] [place] [address] 12076- 4112 Jul, Bipolar I disorder, most recent episode (or current) mixed, moderate F31.62 [facility] [address], [place] [address]- 1874 Jul, Bipolar I disorder, most recent episode (or current) mixed, moderate F31.62 and BMI 60.0-69.9, adult Z68.44 [facility] [address], [place] [address]- 3367 16 Jul, 2017 Bipolar I disorder, most recent episode (or current) mixed, moderate F31.62 [facility] [address] [place] [address] 22240- 7189 06 Jul, 2017 Chronic pain G89.29 [facility] [address], [place] [address]- 4826 Jul, Bipolar I disorder, most recent episode (or current) mixed, moderate F31.62 [facility] [address], [place] [address]- 1199 18 Jun, 2017 Polyneuropathy associated with underlying disease G63 and Diabetes E11.9 [facility] [address], [place] [address]- 8935 16 Jun, 2017 Bipolar I disorder, most recent episode (or current) mixed, moderate F31.62 [facility] [id number] [place] [address] 749141- 8868 Jun, Chronic pain G89.29 [facility] [id number] [place] [address] 35018- 0958 May, Bipolar I disorder, most recent episode (or current) mixed, moderate F31.62 [facility] [id number] [place] [address] 21049- 6413 21 May, 2017 Bipolar I disorder, most recent episode (or current) mixed, moderate F31.62 [facility] [address] [place] [address] 50864- 1197 20 May, 2017 Diabetic polyneuropathy associated with type 2 diabetes mellitus E11.42 [facility] [address] [place] [address] 40519- 1629 18 May, 2017 Bipolar I disorder, most recent episode (or current) mixed, moderate F31.62 [facility] [address], [place] [address]- 3836 13 May, 2017 Bipolar I disorder, most recent episode (or current) mixed, moderate F31.62 [facility] [address], [place] [address]- 8974 May, Chronic pain G89.29 [facility] [id number] [place] [address] 11892- 6419 Apr, Bipolar I disorder, most recent episode (or current) mixed, moderate F31.62 [facility] [address] [place] [address] 93421- 5367 Apr, [facility] [address] [place] [address] 71869- 2742 Apr, Chronic pain G89.29 and DM neuro manif type II E11.49 [facility] [id number] [place] [address] 59032- 7626 Apr, [facility] [id number] [place] [address] 563196- 3675 Apr, Bipolar I disorder, most recent episode (or current) mixed, moderate F31.62 [facility] [id number] [place] [address] 85579- 4083 Apr, Chronic pain G89.29 [facility] [id number] [place] [address] 04171- 7771 Apr, Iliotibial band syndrome, left M76.32 [facility] [id number] [place] [address] 90027- 2659 Apr, Bipolar I disorder, most recent episode (or current) mixed, moderate F31.62 [facility] [id number] [place] [address] 52605- 6924 Mar, Bipolar I disorder, most recent episode (or current) mixed, moderate F31.62 [facility] [id number] [place] [address] 26884- 0195 Mar, Bipolar I disorder, most recent episode (or current) mixed, moderate F31.62 [facility] [address], [place] [address]- 5418 Mar, [facility] [id number] [place] [address] 95590- 9367 Mar, Bipolar I disorder, most recent episode (or current) mixed, moderate F31.62 [facility] [id number] [place] [address] 85320- 9014 Mar, Chronic pain G89.29 [facility] [id number] [address]- 0048 Mar, Bipolar I disorder, most recent episode (or current) mixed, moderate F31.62 [facility] [id number] [place] [address] 23627- 0899 Mar, Bipolar I disorder, most recent episode (or current) mixed, moderate F31.62 [facility] [id number] [place] [address] 92226- 6536 Mar, Acute pain of left knee M25.562 ; Left hip pain M25.552 ; Generalized edema R60.1 and Tongue swelling R22.0 [facility] [id number] [place] [address] 80892- 8378 Mar, [facility] [id number] [place] [address] 57522- 6677 Feb, Chronic pain G89.29 [facility] [id number] [place] [address] 08016- 0613 Feb, Diabetes E11.9 [facility] [id number] [place] [address] 65999- 2712 January, Chronic pain G89.29 [facility] [id number] [place] [address] 06159- 1933 January, [facility] [id number] [place] [address] 11090- 5369 January, Bipolar I disorder, most recent episode (or current) mixed, moderate F31.62 [facility] [address] [place] [address] 03159- 2400 Dec, Bipolar I disorder, most recent episode (or current) mixed, moderate F31.62 [facility] [id number] [place] [address] 94410- 8762 Dec, Chronic pain G89.29 [facility] [id number] [place] [address] 39030- 5304 Dec, Bipolar I disorder, most recent episode (or current) mixed, moderate F31.62 [facility] [address] [place] [address] 21594- 6430 Dec, Diabetes E11.9 ; Essential hypertension I10 ; Chronic pain G89.29 and Morbid obesity E66.01 [facility] [id number] [place] [address] 98843- 5165 Dec, [facility] [id number] [place] [address] 99711- 2309 Dec, Bipolar I disorder, most recent episode (or current) mixed, moderate F31.62 [facility] [id number] [place] [address] 15022- 2142 Dec, Bipolar I disorder, most recent episode (or current) mixed, moderate F31.62 [facility] [id number] [place] [address] 92694- 7919 Nov, Chronic pain G89.29 [facility] [id number] [place] [address] 50423- 5371 Nov, Bipolar I disorder, most recent episode (or current) mixed, moderate F31.62 [facility] [id number] [place] [address] 37757- 7333 Nov, [facility] [address], [place] [address]- 9137 Nov, Bipolar I disorder, most recent episode (or current) mixed, moderate F31.62 [facility] [id number] [place] [address] 69872- 9731 Nov, Bipolar I disorder, most recent episode (or current) mixed, moderate F31.62 [facility] [id number] [place] [address] 67822- 3074 Nov, [facility] [id number] [place] [address] 90640- 1982 Nov, [facility] [address] [place] [address]- 9481 Nov, [facility] [id number] [place] [address] 42122- 3267 Oct, Chronic pain G89.29 [facility] [address] [place] [address] 43697- 2378 Oct, Bipolar I disorder, most recent episode (or current) mixed, moderate F31.62 [facility] [id number] [place] [address] 81507- 3486 Oct, [facility] [id number] [place] [address] 85667- 8618 Oct, Chronic pain G89.29 ; Diabetes E11.9 ; Anxiety F41.9 and 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 [facility] [id number] [place] [address] 91464- 8672 Oct, [facility] [id number] [place] [address] 90009- 5825 Oct, Diabetes E11.9 [facility] [id number] [place] [address] 14797- 2396 Oct, Bipolar I disorder, most recent episode (or current) mixed, moderate F31.62 [facility] [address] [place] [address] 20975- 7944 Sep, Chronic pain G89.29 [facility] [address] [place] [address] 61455- 3688 Sep, Chronic pain G89.29 [facility] [id number] [place] [address] 94537- 6363 Aug, Chronic pain G89.29 [facility] [address], [place] [address]- 9128 Jul, [facility] [id number] [place] [address] 67720- 2036 Jul, Diabetes E11.9 [facility] [id number] [place] [address] 37856- 8706 Jul, Chronic pain G89.29 [place] [id number] [place] [address]- 1202 Jul, Bipolar I disorder, most recent episode (or current) mixed, moderate F31.62 [place] [id number] [place] [address] 87994- 8405 Jun, Bipolar I disorder, most recent episode (or current) mixed, moderate F31.62 [place] [address] [place] 149536- 2770 Jun, [place] [address] 86712- 8688 Jun, Bipolar I disorder, most recent episode (or current) mixed, moderate F31.62 [place] [id number] [place] [address] 32829- 4496 May, Insomnia, unspecified type G47.00 [place] [address] 02817- 4754 May, Bipolar I disorder, most recent episode (or current) mixed, moderate F31.62 [place] [id number] [place] [address] 54223- 5034 14 May, 2016 [place] [address] 07712- 8296 08 May, 2016 Bipolar I disorder, most recent episode (or current) mixed, moderate F31.62 [place] [id number] [place] [address] 91660- 2204 06 May, 2016 Diabetes E11.9 and Essential hypertension I10 [place] [id number] [place] [address] 90910- 4325 Apr, Chronic pain G89.29 [place] [address] [place] [address]- 2546 Apr, Bipolar I disorder, most recent episode (or current) mixed, moderate F31.62 [place] [address] [place] [address] 71936- 9288 Apr, [facility] [id number] [place] [address] 63351- 3947 Apr, [facility] [id number] [place] [address] 46177- 1417 Mar, Chronic pain G89.29 ; Headache, unspecified headache type R51 ; Neuropathy G62.9 ; Pain of right hip joint M25.551 and Essential hypertension I10 [place] [id number] [place] [address] 41380- 4421 Mar, Chronic pain G89.29 [place] [id number] [place] [address] 52735- 3823 Mar, Bipolar I disorder, most recent episode (or current) mixed, moderate F31.62 [place] [id number] [place] [address] 73373- 0383 Feb, Bipolar I disorder, most recent episode (or current) mixed, moderate F31.62 and Insomnia, unspecified type G47.00 [place] [address] [place] [address] 40622- 7098 Feb, Chronic pain G89.29 [place] [address] [place] [address] 25889- 2501 Feb, Bipolar I disorder, most recent episode (or current) mixed, moderate F31.62 [place] [address] [place] [address] 57015- 0334 January, Bipolar I disorder, most recent episode (or current) mixed, moderate F31.62 [place] [address] [place] [address] 80178- 6765 January, Chronic pain G89.29 [place] [id number] [place] [address] 55608- 6311 January, Chronic pain G89.29 and Essential hypertension I10 [facility] [address] 61305- 2113 January, Bipolar I disorder, most recent episode (or current) mixed, moderate F31.62 [facility] [id number] [place] [address] 83284- 2120 Dec, [facility] [id number] [place] [address] 55484- 2877 Dec, [facility] [id number] [place] [address] 35998- 2183 Dec, [facility] [id number] [place] [address] 08328- 6524 Dec, [facility] [address] 88509- 4629 Nov, Reactive airway disease J45.909 [facility] [id number] [place] [address] 68431- 4431 Nov, [facility] [id number] [place] [address] 58920- 8863 Nov, [facility] [id number] [place] [address] 36539- 9381 Nov, [facility] [id number] [place] [address] 23218- 6329 Nov, [facility] [id number] [place] [address] 61524- 4526 Nov, Onychomycosis B35.1 ; Hammertoe M20.40 ; [place] or callus L84 and DM neuro manif type II E11.49 [facility] [id number] [place] [address] 41590- 9902 15 Nov, 2015 Chronic pain G89.29 ; Leukocytosis D72.829 and Diabetes E11.9 [facility] [id number] [place] [address] 41830- 0113 Nov, [facility] [address] [address] Oct, Bronchitis J40 [facility] [id number] [place] [address] 76393- 1712 Oct, [facility] [address] [address]- [address] Oct, [facility] [address] [address]- [address] Oct, Mastoiditis, unspecified laterality H70.90 and Type 2 diabetes mellitus with complication E11.8 [facility] [id number] [place] [address] 70307- 0172 Sep, [facility] [address] [address]- [address] Sep, Dysuria R30.0 ; Cough R05 ; Benign prostatic hyperplasia with lower urinary tract symptoms, unspecified morphology N40.1 ; Hypokalemia E87.6 and Eustachian tube dysfunction, unspecified laterality H69.80 [facility] [id number] [place] [address] 67221- 5751 Sep, Moderate mixed bipolar I disorder F31.62 [place] [id number] [place] [address] 14177- 8900 Sep, Hypokalemia E87.6 [facility] [id number] [place] [address] 87649- 2510 Sep, [facility] [address] 19912- [address] Sep, Upper respiratory tract infection, unspecified type J06.9 [facility] [id number] [place] [address] 04907- 0729 Aug, [facility] [address] [place] [address] Aug, Dysuria R30.0 [facility] [id number] [address] Aug, [facility] [id number] [address] Jul, [facility] [id number] [place] [address] 99045- 8117 Jul, [facility] [id number] [place] [address] 86659- 1292 Jul, [facility] [id number] [place] [address] [id number]- [id number] Jul, [facility] [address] [id number] [place] [address] 87503- 6365 Jun, [facility] [id number] [place] [address] 16586- 5099 Jun, [facility] [address], [place] [address] 4025 Jun, [facility] [id number] [place] [address] 88299- 8141 29 May, 2015 [facility] [address], [place] [address] 3493 May, Bipolar I disorder, most recent episode (or current) mixed, moderate 296.62 [facility] [address], [place] [address] 5114 16 May, 2015 [facility] [address], [place] [address] 0688 May, Bipolar I disorder, most recent episode (or current) mixed, moderate 296.62 and Major depressive disorder, recurrent episode, severe, specified as with psychotic behavior 296.34 [facility] [address], [place] [address]- 6590 May, Bipolar I disorder, most recent episode (or current) mixed, moderate 296.62 [facility] [address], [place] [address] 0954 May, [facility] [id number] [place] [address] 71072- 1122 Apr, [facility] [id number] [place] [address] 32822- 5351 Apr, [facility] [id number] [place] [address] 80388- 9480 Apr, Unspecified disorder of kidney and ureter 593.9 and Diabetes mellitus type 2, uncontrolled 250.02 [facility] [id number] [place] [address] 84862- 7533 Apr, [facility] [id number] [place] [address] 61834- 3208 Apr, [facility] [id number] [place] [address] 27268- 7218 Apr, [facility] [id number] [place] [address] 81078- 4140 Apr, [facility] [id number] [place] [address] 44111- 8779 Apr, Diabetes mellitus type II, uncontrolled 250.02 [facility] [id number] [place] [address] 98337- 1715 Apr, [facility] [id number] [place] [address] 14261- 7765 Mar, [facility] [id number] [place] [address] 16763- 6734 Mar, [facility] [id number] [place] [address] 11762- 3359 Mar, [facility] [id number] [place] [address] 84159- 3016 Mar, Major depressive disorder, recurrent episode, severe, specified as with psychotic behavior 296.34 and Bipolar I disorder, most recent episode (or current) mixed, moderate 296.62 [facility] [id number] [place] [address] 80029- 2801 Mar, Diabetes 250.00 ; Anuria 788.5 ; Nausea and vomiting 787.01 and Diarrhea 787.91 [facility] [id number] [place] [address] 29133- 8885 Mar, Diabetes 250.00 [facility] [id number] [place] [address] 13362- 7406 Mar, [facility] [id number] [place] [address] 94891- 1622 Mar, Diabetes 250.00 [facility] [id number] [place] [address] 99151- 5439 Mar, [facility] [id number] [place] [address] 18829- 4799 Mar, [facility] [id number] [place] [address] 27255- 0711 Mar, [facility] [id number] [place] [address] 17566- 5508 Mar, [facility] [id number] [place] [address] 54305- 9796 Mar, Bipolar I disorder, most recent episode (or current) mixed, moderate 296.62 and Major depressive disorder, recurrent episode, severe, specified as with psychotic behavior 296.34 [facility] [id number] [place] [address] 63002- 9873 Mar, Magnesium deficiency 275.2 ; Hypokalemia 276.8 ; Nausea & vomiting 787.01 and Diabetes mellitus type 2, uncontrolled 250.02 [facility] [id number] [place] [address] 96221- 9613 Feb, [facility] [id number] [place] [address] 64284- 2332 Feb, Bipolar I disorder, most recent episode (or current) mixed, moderate 296.62 [place] [facility] [id number] [place] [address] 30677- 2361 Feb, Nausea and vomiting 787.01 ; Left elbow pain 719.42 ; Anuria 788.5 and Diabetes 250.00 [place] [facility] [id number] [place] [address] 39814- 6411 Feb, [facility] [address] [address]50- 1020 Feb, Hypopotassemia 276.8 and Hypokalemia 276.8 [place] [address] 38386- 6103 Feb, Hypopotassemia 276.8 and Hypokalemia 276.8 [place] [id number] [place] [address] 56501- 6731 Feb, Seborrheic keratoses 702.19 [place] [id number] [place] [address] 18220- 0151 Feb, Hypopotassemia 276.8 and Low magnesium levels 275.2 [place] [id number] [place] [address] 01065- 3299 January, [facility] [id number] [place] [address] 29062- 7264 January, [facility] [id number] [place] [address] 61387- 7366 January, [facility] [id number] [place] [address] 63807- 4416 January, Scalp lesion 709.9 [facility] [id number] [place] [address] 23614- 4153 January, [facility] [id number] [place] [address] 01178- 3437 Dec, Tear of medial cartilage or meniscus of knee, current 836.0 and 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 [facility] [address] [facility] [id number] [place] [address]- 0966 Dec, [facility] [address] [facility] [id number] [place] [address] 2546 Dec, [facility] [address] [facility] [id number] [place] [address]- 4126 28 Dec, 2014 Squamous cell carcinoma, 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 [facility] [address] [facility] [id number] [place] [address]- 5566 14 Dec, 2014 [facility] [address] [facility] [id number] [place] [address]- 6369 Dec, [facility] [id number] [place] [address]- 2740 Nov, [facility] [id number] [place] [address]- 2182 Nov, [facility] [address] [facility] [id number] [place] [address]- 6251 Nov, [facility] [address] [place] [address]- 3488 Nov, [facility] [id number], [place] [address]- 6517 Nov, [facility] [address] [id number] [place] [address] 254 Nov, [facility] [address] [facility] [id number] [address]- 3256 Nov, [facility] [address] [facility] [id number] [place] [address]- 1564 Nov, [facility] [address] [facility] [id number] [place] 7136 Nov, [facility] [id number] 2886 Nov, [facility] [place] [facility] [address] [id number] [place] [address]- 2630 Nov, [facility] [place] [facility] [address] [id number] [place] [address]- 6712 Nov, [facility] [place] [facility] [address] [id number] [place] [address]- 8846 Oct, 2014 [facility] [place] [facility] [address] [id number] [place] [address]- 1401 Oct, 2014 [facility] [place] [facility] [address] [id number] [place] [address]- 6166 Oct, 2014 [facility] [place] [facility] [address] [id number] [place] [address]- 6055 Oct, 2014 [facility] [place] [facility] [address] [id number] [place] [address]- 3581 Oct, 2014 [facility] [place] [facility] [address] [id number] [place] [address]- 0977 Oct, 2014 [facility] [place] [facility] [address] [id number] [place] [address]- 2510 Oct, [facility] [place] [facility] [address] [id number] [place] [address]- 4630 Oct, [facility] [place] [facility] [address] [id number] [place] [address]- 5131 Oct, [facility] [place] [facility] [address] [id number] [place] [address]- 7018 Sep, [facility] [place] [facility] [address] [id number] [place] [address]- 5893 Sep, [facility] [place] [facility] [address] [id number] [place] [address]- 8577 Sep, [facility] [place] [facility] [address] [facility] [id number] [place] [address]- 4480 Sep, [facility] [place] [facility] [address] [id number] [place] [address]- 8125 Sep, [facility] [address] [id number] [place] [address]- 4840 Sep, [facility] [place] [facility] [address] [id number] [place] [address]- 8976 Sep, [facility] [address] [id number] [place] [address]- 3546 Sep, [facility] [address] [id number] [place] [address]- 0917 Sep, [facility] [address] [id number] [place] [address]- 9785 Sep, [facility] [address] [id number] [place] [address]- 7194 Sep, [facility] [address] [id number] [place] [address]- 8357 Sep, [facility] [address] [id number] [place] [address]- 2833 Sep, [facility] [address] [id number] [place] [address]- 0299 Sep, [facility] [address] [id number] [place] [address]- 9275 Sep, [facility] [address] [id number] [place] [address]- 9146 Sep, [facility] [address] [id number] [place] [address]- 1524 Aug, [facility] [place] [facility] [address] [id number] [place] [address]- 6318 Aug, [facility] [place] [facility] [address] [id number] [place] [address]- 7456 Aug, [facility] [place] [facility] [address] [id number] [place] [address]- 2178 Aug, [facility] [address] [id number] [place] [address]- 3694 Aug, [facility] [address] [id number] [place] [address]- 4007 Aug, [facility] [address] [id number] [place] [address]- 3353 Aug, [facility] [address] [id number] [place] [address]- 6243 Aug, [facility] [address] [id number] [place] [address]- 3898 Aug, [facility] [address] [id number] [place] [address]- 4797 Aug, [facility] [address] [id number] [place] [address]- 3155 Aug, [facility] [place] [address] [place] [id number] Aug, [facility] [address] [id number] [place] [address]- 4425 Aug, [facility] [address] [id number] [place] [address]- 2216 Aug, [facility] [address] [id number] [place] [address]- 7556 Aug, [facility] [address] [id number] [place] [address]- 8596 Aug, [facility] [address] [id number] [place] [address]- 3641 Aug, [facility] [place] [facility] [address] [id number] [place] [address]- 6067 Aug, [facility] [address] [id number] [place] [address]- 9341 Aug, [facility] [address] [id number] [place] [address]- 2313 Aug, [facility] [place] [facility] [address] [id number] [place] 9649 Aug, [facility] [place] [facility] [address] [id number] [place] [address]- 0423 Aug, [facility] [place] [facility] [address] [facility] [id number] [place] [address]- 0355 Aug, [facility] [place] [facility] [address] [id number] [place] 4607 Aug, [facility] [place] [facility] [address] [id number] [place] [address]- 0303 Aug, [facility] [place] [facility] [address] [id number] [place] [address]- 2391 Aug, [facility] [place] [facility] [address] [id number] [place] [address]- 9319 Aug, [facility] [place] [facility] [address] [id number] [place] [address]- 2865 Aug, [facility] [place] [facility] [address] [id number] [place] [address]- 5157 Aug, [facility] [place] [facility] [address] [id number] [place] [address]- 6491 Aug, [facility] [place] [facility] [address] [id number] [place] [address]- 1096 Jul, [facility] [place] [facility] [address] [id number], [place] [address]- 6869 Jul, [facility] [place] [facility] [address] [id number] [place] [address]- 7845 Jul, [facility] [place] [facility] [address] [id number] [place] [address]- 4675 Jul, [facility] [place] [facility] [address] [id number] [place] [address]- 0758 Jul, [facility] [place] [facility] [address] [id number] [place] [address]- 5831 Jul, [facility] [place] [facility] [address] [id number] [place] [address]- 8075 Jul, [facility] [place] [facility] [address] [id number] [place] 5632 Jul, [facility] [place] [facility] [address] [id number] [place] [address]- 5811 Jul, [facility] [place] [facility] [address] [id number] [place] [address]- 1464 Jul, [facility] [place] [facility] [address] [id number] [place] [address]- 7836 Jun, [facility] [place] [facility] [address] [id number] [place] [address]- 3640 Jun, [facility] [place] [facility] [address] [id number] [place] [address]- 3561 Jun, [facility] [place] [facility] [address] [id number] [place] [address]- 4208 Jun, [facility] [place] [facility] [address] [id number] [place] [address]- 4702 Jun, [facility] [place] [facility] [address] [id number] [place] [address]- 8945 Jun, [facility] [place] [facility] [address] [id number] [place] [address]- 2782 Jun, [facility] [place] [facility] [address] [id number] [place] [address]- 7711 Jun, [facility] [place] [facility] [address] [id number] [place] 2319 Jun, [facility] [place] [facility] [address] [id number] [place] [address]- 4869 Jun, [facility] [place] [facility] [address] [id number] [place] [address]- 5930 May, [facility] [place] [facility] [address] [id number] [place] [address]- 1741 29 Sep, 2013 [facility] [place] [facility] [address] [id number] [place] [address] 2547 26 Sep, 2013 [facility] [place] [facility] [address] [id number] [place] [address]- 254 26 Sep, 2013 [facility] [place] [facility] [address] [id number] [place] [address] 2546 17 Sep, 2013 [facility] [place] [facility] [address] [id number] [place] [address]- 5914 17 Sep, 2013 [facility] [place] [facility] [address] [id number] [place] [address]- 3160 15 Sep, 2013 [facility] [place] [facility] [address] [id number] [place] [address]- 7099 15 Sep, 2013 [facility] [place] [facility] [address] [id number] [place] [address]- 3780 15 Sep, 2013 [facility] [place] [facility] [address] [id number] [place] [address]- 2545 15 Sep, 2013 [facility] [place] [facility] [address] [id number] [place] [address]- 0896 10 Sep, 2013 [facility] [place] [facility] [address] [id number] [place] [address]- 254 10 Sep, 2013 [facility] [place] [facility] [address] [id number], [place] [address]- 2541 09 Sep, 2013 [facility] [place] [facility] [address] [id number] [place] [address] 2548 09 Sep, 2013 [facility] [place] [facility] [address] [id number] [place] [address]- 2543 04 Sep, 2013 [facility] [place] [facility] [address] [id number] [place] [address]- 2131 04 Sep, 2013 [facility] [place] [facility] [address] [id number] [place] [address]- 8617 Apr, [facility] [place] [facility] [address] [id number] [place] [address]- 7549 Apr, [facility] [place] [facility] [address] [id number] [place] [address]- 8329 Apr, [facility] [place] [facility] [address] [id number] [place] [address]- 8664 Apr, [facility] [place] [facility] [address] [id number] [place] [address]- 0511 Apr, [facility] [place] [facility] [address] [id number] [place] [address]- 3879 Apr, [facility] [place] [facility] [address] [id number] [place] [address]- 8708 Apr, [facility] [place] [facility] [address] [id number] [place] [address]- 2719 Apr, [facility] [place] [facility] [address] [id number] [place] [address]- 6364 Apr, [facility] [place] [facility] [address] [id number] [place] [address]- 3235 Apr, [facility] [place] [facility] [address] [id number] [place] [address]- 8534 Apr, [facility] [place] [facility] [address] [id number] [place] [address]- 5940 Apr, [facility] [place] [facility] [address] [id number] [place] [address]- 3594 Apr, [facility] [place] [facility] [address] [id number] [place] [address]- 9625 Apr, [facility] [place] [facility] [address] [id number] [place] [address]- 6510 Apr, [facility] [place] [facility] [address] [id number] [place] [address]- 9477 Mar, [facility] [place] [facility] [address] [id number] [place] [address]- 3205 Mar, 2013 [facility] [place] [facility] [address] [id number] [place] [address]- 8067 Mar, 2013 [facility] [place] [facility] [address] [id number] [place] [address]- 3023 Mar, 2013 [facility] [place] [facility] [address] [id number] [place] [address]- 9874 Mar, 2013 [facility] [place] [facility] [address] [id number] [place] [address]- 7102 Mar, 2013 [facility] [place] [facility] [address] [id number] [place] [address]- 7483 Mar, 2013 [facility] [place] [facility] [address] [id number] [place] [address]- 9841 Mar, 2013 [facility] [place] [facility] [address] [id number] [place] [address]- 6672 Mar, 2013 [facility] [place] [facility] [address] [id number] [place] [address] Mar, 2013 [facility] [place] [facility] [address] [id number] [place] [address] Mar, 2013 [facility] [place] [facility] [address] [id number] [place] [address] Mar, 2013 [facility] [place] [facility] [address] [id number] [place] [address] Mar, 2013 [facility] [place] [facility] [address] [id number] [place] [address] Mar, 2013 [facility] [place] [facility] [address] [id number] [place] [address]076 Mar, 2013 [facility] [place] [facility] [address] [id number] [place] [address] 35[address] Mar, 2013 [facility] [place] [facility] [address] [id number] [place] [address] Mar, [facility] [place] [facility] [address] [id number] [place] [address] Mar, [facility] [place] [facility] [address] [id number] [place] [address] 65[address] Feb, [facility] [place] [facility] [address] [id number] [place] [address] Feb, [facility] [place] [facility] [address] [id number] [place] [address] Feb, [facility] [place] [facility] [address] [id number] [place] [address]- [address] Feb, [facility] [place] [facility] [address] [id number] [place] [address]- [address]17 Feb, [facility] [place] [facility] [address] [id number] [place] [address]- [address] Feb, [facility] [place] [facility] [address] [id number] [place] [address]- [address]018 Feb, [facility] [place] [facility] [address] [id number] [place] [address]- 6284 Feb, [facility] [place] [facility] [address] [id number] [place] [address]- 4208 Feb, [facility] [place] [facility] [address] [id number] [place] [address]- 2831 Feb, [facility] [place] [facility] [address] [id number] [address] Feb, [facility] [place] [facility] [address] [id number] [place] [address]- 8019 Feb, [facility] [place] [facility] [address] [id number] [place] [address]- [address]898 Feb, [facility] [place] [facility] [address] [id number] [place] [address]- 7293 Feb, [facility] [place] [facility] [address] [id number] [place] [address]- 1793 January, [facility] [address] [id number] [place] [address] January, [facility] [place] [facility] [address] [id number] [place] [address]- 3950 January, [facility] [place] [facility] [address] [id number] [place] [address]- 4250 January, [facility] [place] [facility] [address] [id number] [place] [address]- [address]003 January, [facility] [place] [facility] [address] [id number] [place] [address]- 4112 January, [facility] [place] [facility] [address] [id number] [place] [address]- 9466 January, [facility] [place] [facility] [address] [id number] [place] [address] 1741 January, [facility] [place] [facility] [address] [id number] [place] [address] January, [facility] [place] [facility] [address] [id number] [place] [address] 2961 January, [facility] [place] [facility] [address] [id number] [place] [address]- 4397 January, [facility] [place] [facility] [address] [id number] [place] [address]- 5276 January, [facility] [place] [facility] [address] [id number] [place] [address]- 1098 January, [facility] [place] [facility] [address] [id number] [place] [address]- 5056 January, [facility] [place] [facility] [address] [id number] [place] [address]- 0563 Dec, [facility] [place] [facility] [address] [id number] [place] [address]- 4203 Dec, [facility] [place] [facility] [address] [id number] [place] [address]- [address]672 Dec, [facility] [place] [facility] [address] [id number] [place] [address]- [address]148 Dec, [facility] [place] [facility] [address] [id number] [place] [address]- 9671 Dec, [facility] [place] [facility] [address] [id number] [place] [address]- 2877 Dec, [facility] [place] [facility] [address] [id number] [place] [address]- [address]498 Dec, [facility] [place] [facility] [address] [id number] [place] [address]- [address] Dec, [facility] [place] [facility] [address] [id number] [place] [address]- 3075 Dec, [facility] [place] [facility] [address] [id number] [place] [address]- 7395 Dec, [facility] [place] [facility] [address] [id number] [place] [address]- [address] Nov, [facility] [place] [facility] [address] [id number] [place] [address]- 1727 Nov, [facility] [place] [facility] [address] [id number] [place] [address] Nov, [facility] [place] [facility] [address] [id number] [place] [address]- 3895 Nov, [facility] [place] [facility] [address] [id number] [place] [address]- 8290 Nov, [facility] [place] [facility] [address] [id number] [place] [address]- 1065 Nov, [facility] [place] [facility] [address] [id number] [place] [address]- 8529 Nov, [facility] [place] [facility] [address] [id number] [place] [address]- 1036 Nov, [facility] [place] [facility] [address] [id number] [place] [address]- 9699 Nov, [facility] [place] [facility] [address] [id number] [place] [address]- 7065 Nov, [facility] [place] [facility] [address] [facility] [id number] [place] [address]- [address]289 Oct, [facility] [place] [facility] [address] [id number] [place] [address]- 7952 Oct, [facility] [place] [facility] [address] [id number] [place] [address]- 6620 Oct, [facility] [place] [facility] [address] [id number] [place] [address]- 5692 Oct, [facility] [place] [facility] [address] [facility] [id number] [place] [address] Oct, [facility] [place] [facility] [address] [facility] [id number] [place] [address]- 1645 Oct, [facility] [place] [facility] [address] [facility] [id number] [place] [address] 2323 Oct, [facility] [place] [facility] [address] [facility] [id number] [place] [address]- 5465 Oct, [facility] [place] [facility] [address] [facility] [id number] [place] [address]- 0[address] Oct, 2013 [facility] [place] [facility] [address] [facility] [id number] [place] [address]- 1184 Oct, [facility] [place] [facility] [address] [id number] [place] [address]- 6616 Oct, [facility] [place] [facility] [address] [facility] [id number] [place] [address]- 2198 Oct, [facility] [place] [facility] [address] [facility] [id number] [place] [address]- 6427 Oct, [facility] [place] [facility] [address] [id number] [place] [address]- 9237 Oct, [facility] [place] [facility] [address] [id number] [place] [address]- 8765 Sep, [facility] [place] [facility] [address] [id number] [place] [address]- 3585 Sep, [facility] [place] [facility] [address] [id number] [place] [address]- 5892 Sep, [facility] [place] [facility] [address] [id number] [place] [address]- 5066 Sep, [facility] [place] [facility] [address] [id number] [place] [address]- 2965 Sep, [facility] [place] [facility] [address] [id number] [place] [address]- 6784 Sep, [facility] [place] [facility] [address] [id number] [place] [address]- 1330 Sep, [facility] [place] [facility] [address] [id number] [place] [address]- 7177 Sep, [facility] [place] [facility] [address] [id number] [place] [address]- 3005 Sep, [facility] [place] [facility] [address] [id number] [place] [address]- 2521 Sep, [facility] [place] [facility] [address] [id number], [place] [address] Aug, [facility] [place] [facility] [address] [id number] [place] [address]- 7758 Aug, [facility] [place] [facility] [address] [id number] [place] [address]- 8687 Jul, [facility] [place] [facility] [address] [id number], [place] [address] Jul, [facility] [place] [facility] [address] [id number], [place] [address] 4[address] Jul, [facility] [place] [facility] [address] [id number] [place] [address]- 3119 Jul, [facility] [place] [facility] [address] [id number], [place] [address] 1649 Jul, [facility] [place] [facility] [address] [facility] [id number] [place] [address]- 6627 Jul, [facility] [place] [facility] [address] [id number] [place] [address]- 1592 Jul, [facility] [place] [facility] [address] [id number] [place] [address]- 3074 Jul, [facility] [place] [facility] [address] [id number] [place] [address]- 8343 Jul, [facility] [place] [facility] [address] [facility] [id number], [place] [address]- 7531 Jul, [facility] [place] [facility] [address] [id number], [place] [address] 8[address] Jul, [facility] [place] [facility] [address] [facility] [id number], [place] [address] 2664 Jul, [facility] [place] [facility] [address] [facility] [id number], [place] [address]- 1428 Jul, [facility] [place] [facility] [address] [id number], [place] [address] 3458 Jul, [facility] [place] [facility] [address] [id number], [place] [address]- 2101 Jul, [facility] [place] [facility] [address] [id number], [place] [address] Jul, [facility] [place] [facility] [address] [facility] [id number], [place] [address]- 8199 Jul, [facility] [place] [facility] [address] [facility] [id number], [place] [address]- 6845 Jul, [facility] [place] [facility] [address] [id number] [place] [address]- 2540 Jul, 2012 [facility] [place] [facility] [address] [id number] [place] [address]- 2051 Jun, 2012 [facility] [place] [facility] [address] [id number] [place] [address]- 2546 Jun, 2012 [facility] [place] [facility] [address] [id number] [place] [address]- 8848 Jun, 2012 [facility] [place] [facility] [address] [id number] [place] [address]- 4785 Jun, 2012 [facility] [place] [facility] [address] [id number] [place] [address]- 4629 Jun, 2012 [facility] [place] [facility] [address] [id number] [place] [address]- 5410 Jun, 2012 [facility] [place] [facility] [address] [id number] [place] [address]- 4160 Jun, 2012 [facility] [place] [facility] [address] [id number] [place] [address]- 1216 10 Jun, 2012 [facility] [place] [facility] [address] [id number] [place] [address]- 0594 Jun, [facility] [place] [facility] [address] [id number] [place] [address]- 4851 Jun, [facility] [place] [facility] [address] [id number] [place] [address]- 6816 Jun, [facility] [place] [facility] [address] [id number] [place] [address]- 9697 26 May, 2012 [facility] [place] [facility] [address] [id number] [place] [address]- 6714 25 Sep, 2012 [facility] [place] [facility] [address] [id number] [place] [address]- 2547 19 Sep, 2012 [facility] [place] [facility] [address] [id number] [place] [address]- 7330 17 May, 2013 [facility] [place] [facility] [address] [id number] [place] [address]- 3328 11 May, 2013 [facility] [place] [facility] [address] [id number] [place] [address]- 5826 10 May, 2013 [facility] [place] [facility] [address] [id number] [place] [address]- 2578 May, [facility] [place] [facility] [address] [id number] [place] [address]- 8009 05 May, 2013 [facility] [place] [facility] [address] [id number] [place] [address]- 9578 Apr, [facility] [place] [facility] [address] [id number] [place] [address]- 3928 Apr, [facility] [place] [facility] [address] [id number] [place] [address]- 7873 Apr, [facility] [place] [facility] [address] [id number] [place] [address]- 3846 Apr, [facility] [place] [facility] [address] [id number] [place] [address]- 3243 Apr, [facility] [place] [facility] [address] [id number] [place] [address]- 8887 Mar, [facility] [place] [facility] [address] [id number] [place] [address]- 9299 Mar, [facility] [place] [facility] [address] [id number] [place] [address]- 4833 Mar, [facility] [place] [facility] [address] [id number] [place] [address]- 6740 Mar, [facility] [place] [facility] [address] [id number] [place] [address]- 2313 Mar, [facility] [place] [facility] [address] [id number] [place] [address]- 3590 Mar, [facility] [place] [facility] [address] [id number] [place] [address]- 7280 Mar, [facility] [address] [id number] [place] [address]- 8140 Mar, [facility] [address] [id number] [place] [address]- 4758 Feb, [facility] [address] [id number] [place] [address]- 0958 Feb, [facility] [place] [facility] [address] [id number] [place] [address]- 3953 January, [facility] [address] [id number] [place] [address]- 1921 January, [facility] [address] [id number] [place] [address]- 4943 Dec, [facility] [address] [id number] [place] [address]- 9252 Dec, [facility] [address] [id number] [place] [address]- 5241 Nov, [facility] [address] [id number] [place] [address]- 8645 Nov, [facility] [address] [facility] [id number] [place] [address]- 2497 Nov, [facility] [place] [facility] [address] [id number] [place] [address]- 3253 Nov, [facility] [place] [facility] [address] [id number] [place] [address]- 0549 Oct, [facility] [place] [facility] [address] [id number] [place] [address]116 Oct, [facility] [place] [facility] [address] [id number] [place] [address]- 0229 Oct, [facility] [place] [facility] [address] [id number] [place] [address] Oct, [facility] [address] [id number] [place] [address]- 8221 16 Oct, 2012 [facility] [place] [facility] [address] [id number] [place] [address]- 4026 14 Oct, 2012 [facility] [address] [id number] [place] [address]- 4176 08 Oct, 2012 [facility] [place] [facility] [address] [id number] [place] [address]- 5526 07 Oct, 2012 [facility] [address] [id number] [place] [address]- 0866 Oct, [facility] [place] [facility] [address] [id number] [place] [address]- 6686 Sep, [facility] [address] [id number] [place] [address]- 2286 Sep, [facility] [place] [facility] [address] [id number] [place] [address]- 5579 Sep, [facility] [address] [id number] [place] [address]- 1823 Sep, [facility] [place] [facility] [address] [id number] [place] [address]- 4478 Sep, [facility] [address] [id number] [place] [address]- 9309 Sep, [facility] [place] [facility] [address] [id number] [place] [address]- 3616 Sep, [facility] [place] [facility] [address] [id number] [place] [address]- 0196 Sep, [facility] [place] [facility] [address] [id number] [place] [address]- 9326 Aug, [facility] [place] [facility] [address] [id number] [place] [address]- 5516 Aug, [facility] [place] [facility] [address] [id number] [place] [address]- 7405 Aug, [facility] [place] [facility] [address] [id number] [place] [address]- 2380 Aug, [facility] [place] [facility] [address] [id number] [place] [address]- 2886 Aug, [facility] [place] [facility] [address] [id number] [place] [address]- 7203 Aug, [facility] [place] [facility] [address] [id number] [place] [address]- 7669 Aug, [facility] [place] [facility] [address] [id number] [place] [address]- 0240 Aug, [facility] [place] [facility] [address] [id number] [place] [address]- 8460 Jul, [facility] [place] [facility] [address] [id number] [place] [address]- 7125 Jul, [facility] [place] [facility] [address] [id number] [place] [address]- 9878 Jul, [facility] [place] [facility] [address] [id number] [place] [address]- 0104 Jul, [facility] [place] [facility] [address] [facility] [id number] [place] [address]- 2634 Jul, [facility] [place] [facility] [address] [id number] [place] [address]- 4498 Jul, [facility] [place] [facility] [address] [id number] [place] [address]- 6540 Jun, [facility] [place] [facility] [address] [id number] [place] [address]- 5133 Jun, [facility] [place] [facility] [address] [id number] [place] [address]- 7178 Jun, [facility] [place] [facility] [address] [id number] [place] [address]- 0786 Jun, [facility] [place] [facility] [address] [id number] [place] [address]- 1302 Jun, [facility] [place] [facility] [address] [id number] [place] [address]- 3038 Jun, [facility] [place] [facility] [address] [id number] [place] [address]- 9062 Jun, [facility] [place] [facility] [address] [id number] [place] [address]- 3213 Jun, [facility] [place] [facility] [address] [id number] [place] [address]- 3623 10 Jun, 2012 [facility] [place] [facility] [address] [id number] [place] [address]- 2670 26 May, 2012 [facility] [place] [facility] [address] [id number] [place] [address]- 2587 24 May, 2012 [facility] [place] [facility] [address] [id number] [place] [address]- 4152 18 May, 2012 [facility] [place] [facility] [address] [id number] [place] [address]- 1373 30 Apr, 2012 [facility] [place] [facility] [address] [id number] [place] [address]- 9371 29 Apr, 2012 [facility] [place] [facility] [address] [id number] [place] [address]- 6172 Apr, [facility] [place] [facility] [address] [id number] [place] [address]- 2325 14 Apr, 2012 [facility] [place] [facility] [address] [id number] [place] [address]- 4321 Apr, [facility] [place] [facility] [address] [id number] [place] [address]- 3322 Apr, [facility] [place] [facility] [address] [id number] [place] [address]- 7459 Mar, [facility] [place] [facility] [address] [id number] [place] [address]- 3226 Mar, [facility] [place] [facility] [address] [id number] [place] [address]- 8387 Mar, [facility] [place] [facility] [address] [id number] [place] [address]- 8776 Mar, [facility] [place] [facility] [address] [id number] [place] [address]- 1358 Feb, [facility] [place] [facility] [address] [id number] [place] [address]- 9897 Feb, [facility] [place] [facility] [address] [id number] [place] [address]- 1159 Feb, [facility] [place] [facility] [address] [id number] [place] [address]- 9357 Feb, [facility] [place] [facility] [address] [id number] [place] [address]- 0142 Feb, [facility] [place] [facility] [address] [id number] [place] [address]- 9804 January, [facility] [place] [facility] [address] [id number] [place] [address]- 0650 January, [facility] [place] [facility] [address] [id number] [place] [address]- 7503 January, [facility] [place] [facility] [address] [id number] [place] [address]- 6204 January, [facility] [place] [facility] [address] [id number] [place] [address]- 7067 January, [facility] [place] [facility] [address] [id number] [place] [address]- 7197 January, [facility] [place] [facility] [address] [id number] [place] [address]- 7028 Dec, [facility] [place] [facility] [address] [id number] [place] [address]- 7076 Dec, [facility] [place] [facility] [address] [id number] [place] [address]- 1246 17 Dec, 2011 [facility] [address] [id number] [place] [address]- 2377 09 Dec, 2011 [facility] [place] [facility] [address] [id number] [place] [address]- 9966 06 Dec, 2011 [facility] [address] [id number] [place] [address]- 0052 27 Nov, 2011 [facility] [place] [facility] [address] [id number] [place] [address]- 5611 14 Nov, 2011 [facility] [place] [facility] [address] [id number] [place] [address]- 2311 Nov, [facility] [place] [facility] [address] [facility] [id number] [place] [address]- 4110 07 Nov, 2011 [facility] [address] [id number] [place] [address]- 8706 29 Oct, 2011 [facility] [address] [id number] [place] [address]- 3743 28 Oct, 2011 [facility] [address] [id number] [place] [address]- 4092 24 Oct, 2011 [facility] [address] [facility] [id number] [place] [address]- 5972 13 Oct, 2011 [facility] [place] [facility] [address] [id number] [place] [address]- 6439 08 Oct, 2011 [facility] [place] [facility] [address] [id number] [place] [address]- 6358 Sep, [facility] [place] [facility] [address] [id number] [place] [address]- 8874 30 Sep, 2011 [facility] [place] [facility] [address] [id number] [place] [address]- 8133 Sep, [facility] [place] [facility] [address] [id number] [place] [address]- 1498 Sep, [facility] [place] [facility] [address] [id number] [place] [address]- 3965 Sep, [facility] [place] [facility] [address] [id number] [place] [address]- 4953 Sep, [facility] [place] [facility] [address] [id number] [place] [address]- 1806 Aug, [facility] [place] [facility] [address] [id number] [place] [address]- 7675 Aug, [facility] [place] [facility] [address] [id number] [place] [address]- 6530 Aug, [facility] [place] [facility] [address] [id number] [place] [address]- 3808 Jul, [facility] [place] [facility] [address] [id number] [place] [address]- 8090 Jul, [facility] [place] [facility] [address] [id number] [place] [address]- 5589 Jul, [facility] [place] [facility] [address] [id number] [place] [address]- 0078 Jul, [facility] [place] [facility] [address] [id number] [place] [address]- 8486 Jun, [facility] [place] [facility] [address] [id number], [place] [address]- 6627 Jun, [facility] [place] [facility] [address] [id number], [place] [address]- 8645 18 Jun, 2011 [facility] [place] [facility] [address] [id number] [place] [address]- 0266 Jun, [facility] [place] [facility] [address] [id number] [place] [address]- 2241 Jun, [facility] [place] [facility] [address] [id number] [place] [address]- 9152 Jun, [facility] [place] [facility] [address] [id number] [place] [address]- 3096 11 Mar, 2011 [facility] [address] [id number] [place] [address]- 3966 18 Dec, 2010 [facility] [address] [id number] [place] [address] 2546 11 Dec, 2010 [facility] [address] [id number] [place] [address]- 3306 18 Nov, 2010 [facility] [address] [id number] [place] [address] 2546 16 Nov, 2010 [facility] [address] [id number] [place] [address]- 5968 10 Sep, 2010 [facility] [address] [id number] [place] [address]- 9753 31 Aug, 2010 [facility] [address] [id number] [place] [address]- 0356 29 Aug, 2010 [facility] [address] [id number] [place] [address] 2540 29 Aug, 2010 [facility] [address] [id number] [place] [address] 2542 29 Aug, 2010 [facility] [address] [id number] [place] [address] 2545 27 Aug, 2010 [facility] [address] [id number] [place] [address] 2546 14 Aug, 2010 [facility] [address] [id number] [place] [address] 2546 08 Aug, 2010 [facility] [address] [id number] [place] [address] 2546 08 Aug, 2010 [facility] [address] [id number] [place] [address] 2546 07 Aug, 2010 [facility] [address] [id number] [place] [address] 2546 Aug, [facility] [place] [facility] [address] [id number] [place] [address] Aug, [facility] [place] [facility] [address] [id number] [place] [address] Aug, [facility] [place] [facility] [address] [id number] [place] [address] Jul, [facility] [place] [facility] [address] [id number] [place] [address] Jul, [facility] [place] [facility] [address] [id number] [place] [address] Jul, [facility] [place] [facility] [address] [id number] [place] [address] Jul, [facility] [place] [facility] [address] [id number] [place] [address] Jul, [facility] [place] [facility] [address] [id number] [place] [address] Jul, [facility] [place] [facility] [address] [id number] [place] [address] Jun, [facility] [place] [facility] [address] [id number], [place] [address] Jun, [facility] [place] [facility] [address] [id number] [place] [address] Jun, [facility] [place] [facility] [address] [id number], [place] [address] Jun, [facility] [place] [facility] [address] [id number] [place] [address] 16 Apr, 2010 [facility] [place] [facility] [address] [id number], [place] [address] Mar, [facility] [place] [facility] [address] [id number], [place] [address] Feb, [facility] [place] [facility] [address] [id number], [place] [address] January, [facility] [place] [facility] [address] [id number], [place] [address] 15 Dec, 2009 [facility] [place] [facility] [address] [id number], [place] [address] Nov, [facility] [place] [facility] [address] [facility] [id number] [place] [address] 31 Aug, 2009 [facility] [place] [facility] [address] [id number], [place] [address] Aug, [facility] [place] [facility] [address] [id number] [place] [address] Aug, [facility] [place] [facility] [address] [id number], [place] [address] Jul, [facility] [place] [facility] [address] [facility] [id number], [place] [address] Jul, [facility] [place] [facility] [address] [facility] [id number], [place] [address] Jul, [facility] [place] [facility] [address] [facility] [id number], [place] [address] 30 Jun, 2009 [facility] [place] [facility] [address] [facility] [id number], [place] [address] 29 Jun, 2009 [facility] [place] [facility] [address] [id number], [place] [address] Jun, [facility] [place] [facility] [address] [facility] [id number], [place] [address] 22 Jun, 2009 [facility] [place] [facility] [address] [id number], [place] [address] Jun, [facility] [place] [facility] [address] [facility] [id number], [place] [address] Jun, [facility] [place] [facility] [address] [facility] [id number], [place] [address] Apr, [facility] [place] [facility] [address] [facility] [id number] [place] [address] Apr, [facility] [address] [facility] [id number], [place] [address] Feb, [facility] [address] [facility] [id number], [place] [address] January, [facility] [address] [facility] [id number], [place] [address] Dec, IMMUNIZATIONS No Known Immunizations SOCIAL HISTORY Never Assessed REASON FOR VISIT med refill PLAN OF CARE VITAL SIGNS MEDICATIONS Medication Instructions Dosage Frequency Start Date End Date Duration Status Trintellix 20 mg Orally Once a day 1 tablet 24h 30 days Active Abilify 30 MG Orally Once a day 1 tablet 24h 30 days Active Seroquel 100 mg Orally Once a day 1 tablet [...] obesity Medical History skin cancer-basal cell 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
--- OUTSIDE RECORDS SUMMARY | 2018-08-08 12:27 | XMS REPORT ---
Author Author NOEMI WASHBURN Organization [facility], [place] Address [address] [place] [address] Care Team Providers Care Train Caller Name Role Phone NOEMI WASHBURN Unavailable PROBLEMS Type Condition ICD9-CM Code NON80-HE Code Onset Dates Condition Status SNOMED Code Problem Chronic lymphocytic leukemia C91.10 Active 69754886 Problem Insomnia, unspecified type G47.00 Active 914613378 Problem Lymphocytosis D72.820 Active 91318475 Problem Anxiety F41.9 Active 14875886 Problem Eye exam abnormal R93.8 Active 814282714 Problem Morbid obesity E66.01 Active 707771821 Problem Diabetic polyneuropathy associated with type 2 diabetes mellitus E11.42 Active 48498064 Problem Essential hypertension I10 Active 73023895 Problem Falling R29.6 Active 316807476 Problem 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 Active 433553679 Problem Cough R05 Active 48875355 Problem Dysuria R30.0 Active 04618584 Problem Eustachian tube dysfunction, unspecified laterality H69.80 Active 29568585 Problem Bilateral primary osteoarthritis of knee M17.0 Active 197860021 Problem Polyneuropathy associated with underlying disease G63 Active 865308580 Problem Anemia of chronic illness D63.8 Active 482983838 Problem Retinal edema H35.81 Active 4102313 Problem DM neuro manif type II E11.49 Active 61603512 Problem Diabetes E11.9 Active 40863464 Problem Hypokalemia E87.6 Active 71037591 Problem Benign prostatic hyperplasia with lower urinary tract symptoms, unspecified morphology N40.1 Active 065572665 Problem Reactive airway disease J45.909 Active 534913790777 Problem Bipolar I disorder, most recent episode (or current) mixed, moderate F31.62 Active 81348046 Problem Chronic pain G89.29 Active 98997634 Problem Leukocytosis D72.829 Active 142610885 ALLERGIES No Information ENCOUNTERS Encounter Location Date Diagnosis [facility], [place] [address] [address] Apr, [facility] [place] [address] [address] Mar, [facility] [place] [address] [address] Mar, [facility] [place] [address] [address] 30[address] Mar, [facility] [place] [address] [address] Mar, Bipolar I disorder, most recent episode (or current) mixed, moderate F31.62 [facility] [place] [address] [address] Feb, Bipolar I disorder, most recent episode (or current) mixed, moderate F31.62 [facility] [place] [address] [address] 2609 Feb, Chronic pain G89.29 [facility] [place] [address], [place] [address] Feb, Decubitus ulcer of right foot, stage 3 L89.893 and BMI 50.0- 59.9, adult Z68.43 [facility] [place] [address] [address] Feb, Bipolar I disorder, most recent episode (or current) mixed, moderate F31.62 [facility] [place] [address] [address] 59[address] Feb, [facility] [place] [address], [place] [address] January, [facility] [place] [address], [place] [address] 8[address] January, Chronic pain G89.29 [facility] [place] [address], [place] [address] January, Bipolar I disorder, most recent episode (or current) mixed, moderate F31.62 [facility] [id number] [place] [address] 68617- 4597 January, Bipolar I disorder, most recent episode (or current) mixed, moderate F31.62 [facility] [id number] [place] [address] 19980- 4719 Dec, Bipolar I disorder, most recent episode (or current) mixed, moderate F31.62 and BMI 50.0-59.9, adult Z68.43 [facility] [id number] [place] [address] 54771- 7106 Dec, Bipolar I disorder, most recent episode (or current) mixed, moderate F31.62 [facility] [id number] [place] [address] 62247- 3509 Dec, Chronic pain G89.29 [facility] [address] 14[address]- 1175 Dec, DM neuro manif type II E11.49 ; Right flank pain R10.9 ; custodial 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 Z79.891 ; Encounter for medication monitoring Z51.81 and BMI 50.0-59.9, adult Z68.43 [facility] [id number] [place] [address] 64191- 2352 Dec, Bipolar I disorder, most recent episode (or current) mixed, moderate F31.62 [facility] [id number] [place] [address] 55102- 2427 Nov, Bipolar I disorder, most recent episode (or current) mixed, moderate F31.62 [facility] [id number] [place] [address] 42921- 6722 Nov, Chronic pain G89.29 [facility] [id number] [place] [address] 89825- 6501 Nov, Bipolar I disorder, most recent episode (or current) mixed, moderate F31.62 [facility] [id number] [place] [address] 23327- 9969 Nov, Hypokalemia E87.6 [facility] [address] [place]- 9246 Nov, Bipolar I disorder, most recent episode (or current) mixed, moderate F31.62 [facility] [address] 2[address]40- 6243 Oct, Chronic pain G89.29 [facility] [address] 553410- 9535 Oct, BMI 50.0-59.9, adult Z68.43 and Bipolar I disorder, most recent episode (or current) mixed, moderate F31.62 [facility] [address] 28953- 9166 Oct, Bipolar I disorder, most recent episode (or current) mixed, moderate F31.62 [facility] [id number] [place] [address] 39949- 7223 Oct, [facility] [address] 697338- 2011 Oct, Hypokalemia E87.6 [facility] [id number] [place] [address] 16248- 8534 Oct, DM neuro manif type II E11.49 [facility] [id number] [place] [address] 90134- 8344 Oct, Bipolar I disorder, most recent episode (or current) mixed, moderate F31.62 [facility] [address] 82600- 2116 Oct, Bipolar I disorder, most recent episode (or current) mixed, moderate F31.62 [facility] [id number] [place] [address] 69202- 5301 14 Oct, 2017 Hyperkalemia E87.5 ; Falling R29.6 ; BMI 50.0-59.9, adult Z68.43 and Acute left ankle pain M25.572 [facility] [address] 90727- 9282 08 Oct, 2017 DM neuro manif type II E11.49 [facility] [address] 87399- 4131 Oct, [facility] [address] 26165- 8002 Sep, Chronic pain G89.29 [facility] [address] 13010- 8895 Sep, [facility] [address] 05362- 0577 Sep, Bilateral primary osteoarthritis of knee M17.0 [facility] [address] 46900- 4973 Sep, Generalized edema R60.1 [facility] [address] 71958- 3960 Sep, Bipolar I disorder, most recent episode (or current) mixed, moderate F31.62 [facility] [id number] [place] [address] 76442- 5074 Sep, Hypoxia R09.02 ; Other hypervolemia E87.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 ; Anemia of chronic illness D63.8 and BMI 50.0- 59.9, adult Z68.43 [facility] [address] 51761- 7555 Sep, [facility] [address] 93702- 9732 Sep, Bipolar I disorder, most recent episode (or current) mixed, moderate F31.62 [facility] [address] [address]- 4[address] 28 Aug, 2017 Chronic pain G89.29 [facility], [place] [id number] [place] [address] 00646- 6702 Aug, Generalized edema R60.1 [facility] [place] [id number] [place] [address] 24307- 7809 Aug, [facility] [place] [id number] [place] [address] 154806- 7409 Aug, [facility] [place] [id number] [place] [address] 52220- 1800 14 Aug, 2017 Bipolar I disorder, most recent episode (or current) mixed, moderate F31.62 [facility] [id number] [place] [address] 99229- 8232 Aug, Bipolar I disorder, most recent episode (or current) mixed, moderate F31.62 [facility] [id number] [place] [address] 16473- 3938 04 Aug, 2017 Chronic pain G89.29 [facility] [id number] [place] [address] 62769- 0670 30 Jul, 2017 Bipolar I disorder, most recent episode (or current) mixed, moderate F31.62 [facility] [address] [place] [address] 26171- 6140 Jul, Bipolar I disorder, most recent episode (or current) mixed, moderate F31.62 and BMI 60.0-69.9, adult Z68.44 [facility], [place] [address] [place] [address] 53560- 9417 16 Jul, 2017 Bipolar I disorder, most recent episode (or current) mixed, moderate F31.62 [facility] [address] [address]- 2574 06 Jul, 2017 Chronic pain G89.29 [facility] [place] [id number] [place] [address] 45572- 8025 Jul, Bipolar I disorder, most recent episode (or current) mixed, moderate F31.62 [facility] [place] [address] [place] [address] 13467- 0921 Jun, Polyneuropathy associated with underlying disease G63 and Diabetes E11.9 [facility], [place] [id number] [place] [address] 62656- 2992 Jun, Bipolar I disorder, most recent episode (or current) mixed, moderate F31.62 [facility] [place] [address] [place] [address] 71944- 8955 Jun, Chronic pain G89.29 [facility] [place] [id number] [place] [address] 47585- 9154 May, Bipolar I disorder, most recent episode (or current) mixed, moderate F31.62 [facility] [place] [id number] [place] [address] 29176- 9608 May, Bipolar I disorder, most recent episode (or current) mixed, moderate F31.62 [facility] [place] [id number] [place] [address] 91899- 3880 20 May, 2017 Diabetic polyneuropathy associated with type 2 diabetes mellitus E11.42 [facility] [place] [address] [place] [address] 59906- 5668 18 May, 2017 Bipolar I disorder, most recent episode (or current) mixed, moderate F31.62 [facility] [place] [address] [place] [address] 38003- 1339 13 May, 2017 Bipolar I disorder, most recent episode (or current) mixed, moderate F31.62 [facility] [place] [id number] [place] [address] 25499- 8665 May, Chronic pain G89.29 [facility] [place] [address] [place] [address] 11276- 1944 Apr, Bipolar I disorder, most recent episode (or current) mixed, moderate F31.62 [facility] [place] [address] [address]- 5921 Apr, [facility] [place] [id number] [place] [address] 76954- 9366 Apr, Chronic pain G89.29 and DM neuro manif type II E11.49 [facility] [place] [id number] [place] [address] 19441- 5746 Apr, [facility] [place] [id number] [place] [address] 41978- 3070 Apr, Bipolar I disorder, most recent episode (or current) mixed, moderate F31.62 [facility] [place] [id number] [place] [address] 48318- 1165 Apr, Chronic pain G89.29 [facility] [place] [id number] [place] [address] 04261- 5643 Apr, Iliotibial band syndrome, left M76.32 [facility] [place] [id number] [place] [address] 66597- 5673 Apr, Bipolar I disorder, most recent episode (or current) mixed, moderate F31.62 [facility] [place] [id number] [place] [address] 88787- 8342 Mar, Bipolar I disorder, most recent episode (or current) mixed, moderate F31.62 [facility] [place] [address] [place] [address] 10766- 0909 Mar, Bipolar I disorder, most recent episode (or current) mixed, moderate F31.62 [facility] [place] [address] [place] [address] 79034- 1739 Mar, [facility] [place] [id number] [place] [address] 32303- 3460 Mar, Bipolar I disorder, most recent episode (or current) mixed, moderate F31.62 [facility] [place] [address] [place] [address] 05053- 5537 Mar, Chronic pain G89.29 [facility] [place] [address], [place] [address]- 0596 Mar, Bipolar I disorder, most recent episode (or current) mixed, moderate F31.62 [facility] [place] [address], [place] [address]- 9143 Mar, Bipolar I disorder, most recent episode (or current) mixed, moderate F31.62 [facility] [place] [id number] [place] [address] 01245- 3129 Mar, Acute pain of left knee M25.562 ; Left hip pain M25.552 ; Generalized edema R60.1 and Tongue swelling R22.0 [facility] [place] [id number] [place] [address] 37015- 2253 Mar, [facility] [place] [id number] [place] [address] 89540- 6942 Feb, Chronic pain G89.29 [facility], [place] [id number] [place] [address] 95540- 1132 Feb, Diabetes E11.9 [facility] [place] [id number] [place] [address] 26531- 9615 January, Chronic pain G89.29 [facility] [place] [address] [place] [address] 03391- 2954 January, [facility] [place] [id number] [place] [address] 42970- 8586 January, Bipolar I disorder, most recent episode (or current) mixed, moderate F31.62 [facility] [place] [id number] [place] [address] 31046- 2662 Dec, Bipolar I disorder, most recent episode (or current) mixed, moderate F31.62 [facility] [place] [address], [place] [address]- 0732 Dec, Chronic pain G89.29 [facility] [place] [address] [address]- 3410 Dec, Bipolar I disorder, most recent episode (or current) mixed, moderate F31.62 [facility] [place] [id number] [place] [address] 97639- 0837 Dec, Diabetes E11.9 ; Essential hypertension I10 ; Chronic pain G89.29 and Morbid obesity E66.01 [facility] [place] [id number] [place] [address] 78385- 6539 Dec, [facility] [place] [id number] [place] [address] 99624- 1361 Dec, Bipolar I disorder, most recent episode (or current) mixed, moderate F31.62 [facility] [id number] [place] [address] 12791- 3969 Dec, Bipolar I disorder, most recent episode (or current) mixed, moderate F31.62 [place] [address] [id number] [place] [address] 32591- 8382 Nov, Chronic pain G89.29 [facility] [place] [id number] [place] [address] 62637- 6911 Nov, Bipolar I disorder, most recent episode (or current) mixed, moderate F31.62 [place] [address] [place] [id number] [place] [address] 11661- 5609 Nov, [facility] [place] [id number] [place] [address] 08902- 9764 Nov, Bipolar I disorder, most recent episode (or current) mixed, moderate F31.62 [facility] [place] [id number] [place] [address] 32374- 0138 Nov, Bipolar I disorder, most recent episode (or current) mixed, moderate F31.62 [facility] [place] [address] [place] [address] 56951- 4934 Nov, [facility] [place] [id number] [place] [address] 12116- 7121 Nov, [facility] [place] [address], [place] [address]- 5520 Nov, [facility] [place] [id number] [place] [address] 23285- 7509 Oct, Chronic pain G89.29 [facility] [place] [address] [place] [address] 85958- 0026 Oct, Bipolar I disorder, most recent episode (or current) mixed, moderate F31.62 [facility] [place] [address] [place] [address] 01666- 9085 Oct, [facility] [place] [id number] [place] [address] 89223- 4444 Oct, Chronic pain G89.29 ; Diabetes E11.9 ; Anxiety F41.9 and 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 [facility] [place] [id number] [place] [address] 23392- 8251 Oct, [facility] [place] [address] [place] [address] 78097- 5135 Oct, Diabetes E11.9 [facility] [place] [address] [place] [address] 38980- 8954 Oct, Bipolar I disorder, most recent episode (or current) mixed, moderate F31.62 [facility] [place] [address], [place] [address]- 7477 Sep, Chronic pain G89.29 [facility] [place] [address], [place] [address]- 8198 Sep, Chronic pain G89.29 [facility] [place] [id number] [place] [address] 96764- 3046 Aug, Chronic pain G89.29 [facility] [place] [address] [place] [address] 61904- 1982 Jul, [facility] [place] [id number] [place] [address] 54255- 4934 Jul, Diabetes E11.9 [facility] [place] [id number] [place] [address] 09353- 2384 Jul, Chronic pain G89.29 [facility] [place] [address] [place] [address] 12021- 9463 Jul, Bipolar I disorder, most recent episode (or current) mixed, moderate F31.62 [place] [id number] [place] [address] 78506- 0499 Jun, Bipolar I disorder, most recent episode (or current) mixed, moderate F31.62 [place] [address] [address] [id number] [place] [address] 63881- 6963 Jun, [place] [address] [id number] [place] [address] 34521- 9348 Jun, Bipolar I disorder, most recent episode (or current) mixed, moderate F31.62 [place] [address] [id number] [place] [address] 43222- 1690 30 May, 2016 Insomnia, unspecified type G47.00 [place] [address] [id number] [place] [address] 33522- 3838 May, Bipolar I disorder, most recent episode (or current) mixed, moderate F31.62 [place] [address] [id number] [place] [address] 80946- 7670 14 May, 2016 [place] [address] [id number] [place] [address] 36324- 9625 08 May, 2016 Bipolar I disorder, most recent episode (or current) mixed, moderate F31.62 [place] [id number] [place] [address] 10845- 7175 06 May, 2016 Diabetes E11.9 and Essential hypertension I10 [facility] [place] [id number] [place] [address] 29656- 6271 Apr, Chronic pain G89.29 [facility] [place] [address], [place] [address]- 1597 Apr, Bipolar I disorder, most recent episode (or current) mixed, moderate F31.62 [facility] [place] [address] [place] [address] 79439- 4589 Apr, [facility] [place] [id number] [place] [address] 83186- 8622 Apr, [facility] [id number] [place] [address] 42435- 7062 Mar, Chronic pain G89.29 ; Headache, unspecified headache type R51 ; Neuropathy G62.9 ; Pain of right hip joint M25.551 and Essential hypertension I10 [place] [address] [place] [address] 96151- 2455 Mar, Chronic pain G89.29 [facility] [id number] [place] [address] 06771- 8012 Mar, Bipolar I disorder, most recent episode (or current) mixed, moderate F31.62 [place] [id number] [place] [address] 28663- 4537 Feb, Bipolar I disorder, most recent episode (or current) mixed, moderate F31.62 and Insomnia, unspecified type G47.00 [place] [address] [place] [address] 87976- 8029 Feb, Chronic pain G89.29 [facility] [address] [id number] [place] [address] 07772- 6704 Feb, Bipolar I disorder, most recent episode (or current) mixed, moderate F31.62 [place] [id number] [place] [address] 92734- 7399 January, Bipolar I disorder, most recent episode (or current) mixed, moderate F31.62 [place] [id number] [place] [address] 46643- 8094 January, Chronic pain G89.29 [facility] [place] [id number] [place] [address] [id number] January, Chronic pain G89.29 and Essential hypertension I10 [facility], [place] [id number] [place] [address] [phone] January, Bipolar I disorder, most recent episode (or current) mixed, moderate F31.62 [facility], [place] [address] [address]- [address] Dec, [facility], [place] [address] 386[address]- 8[address] Dec, [facility], [place] [address] [address]- [address] Dec, [facility], [place] [address] 277[address]- [address]59 Dec, [facility], [place] [address] 475[address]- [address] Nov, Reactive airway disease J45.909 [facility], [place] [address] 42516- 6657 Nov, [facility], [place] [id number] [place] [address] [id number]- [phone] Nov, [facility], [place] [id number] [place] [address] [phone]- [phone] Nov, [facility], [place] [id number] [place] [address] 44082- 1679 Nov, [facility], [place] [address] 77[address]- [address] Nov, Onychomycosis B35.1 ; [place] M20.40 ; [place] or callus L84 and DM neuro manif type II E11.49 [facility], [place] [id number] [place] [address] 38545- [phone] 15 Nov, 2015 Chronic pain G89.29 ; Leukocytosis D72.829 and Diabetes E11.9 [place] [address] [address] [id number] [place] [address] 94186- 3877 Nov, [place] [id number] [place] [address] 42646- 4740 Oct, Bronchitis J40 [place] [id number] [place] [address] 43342- 3573 Oct, [place] [address] 45915- 2306 Oct, [place] [address] 04318- 2319 Oct, Mastoiditis, unspecified laterality H70.90 and Type 2 diabetes mellitus with complication E11.8 [place] [id number] [place] [address] 96303- 1827 Sep, [place] [id number] [place] [address] 34489- 2924 Sep, Dysuria R30.0 ; Cough R05 ; Benign prostatic hyperplasia with lower urinary tract symptoms, unspecified morphology N40.1 ; Hypokalemia E87.6 and Eustachian tube dysfunction, unspecified laterality H69.80 [place] [id number] [place] [address] 66179- 9082 Sep, Moderate mixed bipolar I disorder F31.62 [place] [id number] [place] [address] 84764- 4826 Sep, Hypokalemia E87.6 [place] [id number] [place] [address] 60647- 6194 Sep, [place] [id number] [place] [address] 41742- 4273 Sep, Upper respiratory tract infection, unspecified type J06.9 [place] [id number] [place] [address] 98491- 3811 Aug, [facility] [place] [address] [address] 1016 Aug, Dysuria R30.0 [facility], [place] [address], [place] [address]- 0499 Aug, [facility], [place] [address], [place] [address]- 3694 Jul, [facility], [place] [id number] [place] [address] 554783- 1175 Jul, [facility], [place] [address], [place] [address]- 5180 Jul, [facility], [place] [id number] [place] [address] 840923- 5815 Jul, [facility], [place] [id number] [place] [address] 00936- 9170 Jun, [facility], [place] [id number] [place] [address] 27707- 1230 Jun, [facility], [place] [id number] [place] [address] 01520- 7457 Jun, [facility], [place] [address], [place] [address]- 0704 May, [facility], [place] [address], [place] [address]- 6875 May, Bipolar I disorder, most recent episode (or current) mixed, moderate 296.62 [facility], [place] [address], [place] [address]- 5051 16 May, 2015 [facility], [place] [address] [address]- 4646 02 May, 2015 Bipolar I disorder, most recent episode (or current) mixed, moderate 296.62 and Major depressive disorder, recurrent episode, severe, specified as with psychotic behavior 296.34 [facility], [place] [address], [place] [address]- 2622 May, Bipolar I disorder, most recent episode (or current) mixed, moderate 296.62 [facility], [place] [id number] [place] [address] 535703- 0463 May, [facility], [place] [id number] [place] [address] 97613- 7597 Apr, [facility], [place] [id number] [place] [address] 97405- 5553 Apr, [facility], [place] [id number] [place] [address] 16502- 6583 Apr, Unspecified disorder of kidney and ureter 593.9 and Diabetes mellitus type 2, uncontrolled 250.02 [facility], [place] [id number] [place] [address] 66272- 6247 Apr, [facility], [place] [id number] [place] [address] 86306- 0712 Apr, [facility], [place] [id number] [place] [address] 63395- 7434 Apr, [facility], [place] [id number] [place] [address] 46286- 3464 Apr, [facility], [place] [id number], [place] [address]- 8565 Apr, Diabetes mellitus type II, uncontrolled 250.02 [facility], [place] [address], [place] [address]- 5736 Apr, [facility], [place] [id number] [place] [address] 39241- 5367 Mar, [facility], [place] [id number] [place] [address] 27485- 9997 Mar, [facility], [place] [address], [place] [address]- 2385 Mar, [facility], [place] [id number] [place] [address] 61936- 9818 Mar, Major depressive disorder, recurrent episode, severe, specified as with psychotic behavior 296.34 and Bipolar I disorder, most recent episode (or current) mixed, moderate 296.62 [facility], [place] [id number] [place] [address] 25666- 5439 Mar, Diabetes 250.00 ; Anuria 788.5 ; Nausea and vomiting 787.01 and Diarrhea 787.91 [facility], [place] [id number] [place] [address] 40850- 9890 Mar, Diabetes 250.00 [facility], [place] [id number] [place] [address] 37212- 0152 Mar, [facility], [place] [id number] [place] [address] 75034- 0414 Mar, Diabetes 250.00 [facility], [place] [id number] [place] [address] 28079- 8632 Mar, [facility], [place] [id number] [place] [address] 49550- 1322 Mar, [facility], [place] [id number] [place] [address] 64992- 2977 Mar, [facility], [place] [id number] [place] [address] 20618- 5306 Mar, [facility], [place] [id number] [place] [address] 70599- 0033 Mar, Bipolar I disorder, most recent episode (or current) mixed, moderate 296.62 and Major depressive disorder, recurrent episode, severe, specified as with psychotic behavior 296.34 [facility], [place] [id number] [place] [address] 94465- 9294 Mar, Magnesium deficiency 275.2 ; Hypokalemia 276.8 ; Nausea & vomiting 787.01 and Diabetes mellitus type 2, uncontrolled 250.02 [facility], [place] [address], [place] [address]- 2217 Feb, [facility], [place] [id number] [place] [address] 58017- 0006 Feb, Bipolar I disorder, most recent episode (or current) mixed, moderate 296.62 [facility], [place] [id number] [place] [address] 66087- 3135 Feb, Nausea and vomiting 787.01 ; Left elbow pain 719.42 ; Anuria 788.5 and Diabetes 250.00 [facility], [place] [address] 30797- 3490 Feb, [facility], [place] [address] 71014- 9819 Feb, Hypopotassemia 276.8 and Hypokalemia 276.8 [place] [id number] [place] [address] 03454- 8762 Feb, Hypopotassemia 276.8 and Hypokalemia 276.8 [place] [id number] [place] [address] 14838- 1003 Feb, Seborrheic keratoses 702.19 [place] [id number] [place] [address] 98562- 9689 Feb, Hypopotassemia 276.8 and Low magnesium levels 275.2 [place] [id number] [place] [address] 01812- 0853 January, [facility], [place] [id number] [place] [address] 16631- 7016 January, [facility], [place] [id number] [place] [address] 24487- 6717 January, [facility], [place] [id number] [place] [address] 39323- 4420 January, Scalp lesion 709.9 [facility], [place] [id number] [place] [address] 23587- 2127 January, [facility], [place] [address] 84510- 7548 30 Dec, 2014 Tear of medial cartilage or meniscus of knee, current 836.0 and 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 [facility] [address] [id number] [place] [address]- 4386 Dec, [facility] [address] [id number] [address]- 4676 Dec, [facility] [address] [facility] [id number] [address] 2546 Dec, Squamous cell carcinoma, 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 [facility] [address] [id number] [place] [address]- 5966 14 Dec, 2014 [facility] [id number], [place] [address]- 1380 Dec, [facility] [id number], [place] [address]- 7670 Nov, [facility] [address] [facility] [id number], [place] [address]- 7748 Nov, [facility] [address] [facility] [id number], [place] [address]- 3763 Nov, [facility] [address] [facility] [id number], [place] [address]- 3463 Nov, [facility] [id number], [place] [address]- 3102 Nov, [facility] [address] [facility] [id number] 1436 Nov, [facility] [address] [facility] [id number]- 7606 Nov, [facility] [address] [facility] [id number] 0771 Nov, [facility] [address] [facility] [id number] 6986 Nov, [facility] [address] [id number] [place] [address]- 5272 Nov, [facility] [place] [facility] [address] [id number] [place] [address]- 7060 Nov, [facility] [place] [facility] [address] [id number] [place] [address]- 8645 Nov, [facility] [place] [facility] [address] [id number] [place] [address]- 8496 Oct, 2014 [facility] [place] [facility] [address] [id number] [place] [address]- 0915 Oct, 2014 [facility] [place] [facility] [address] [id number] [place] [address]- 1297 Oct, 2014 [facility] [place] [facility] [address] [facility] [id number] [place] [address]- 8256 Oct, 2014 [facility] [place] [facility] [address] [facility] [id number] [place] [address]- 8178 Oct, 2014 [facility] [place] [facility] [address] [facility] [id number] [place] [address]- 7724 Oct, [facility] [place] [facility] [address] [facility] [id number] [place] [address]- 5327 Oct, [facility] [place] [facility] [address] [facility] [id number] [place] [address]- 2191 Oct, [facility] [place] [facility] [address] [facility] [id number], [place] [address]- 4510 Oct, [facility] [place] [facility] [address] [facility] [id number] [place] [address]- 5132 Sep, [facility] [place] [facility] [address] [id number] [place] [address]- 9305 Sep, [facility] [place] [facility] [address] [facility] [id number] [place] [address]- 7046 Sep, [facility] [place] [facility] [address] [facility] [id number], [place] [address]- 1462 Sep, [facility] [place] [facility] [address] [id number] [place] [address]- 9436 Sep, [facility] [place] [facility] [address] [id number] [place] [address]- 9140 Sep, [facility] [place] [facility] [address] [id number] [place] [address]- 7376 Sep, [facility] [place] [facility] [address] [id number] [place] [address]- 3045 Sep, [facility] [place] [facility] [address] [id number] [place] [address]- 5775 Sep, [facility] [place] [facility] [address] [id number] [place] [address]- 8155 Sep, [facility] [place] [facility] [address] [id number] [place] [address]- 8781 Sep, [facility] [place] [facility] [address] [id number] [place] [address]- 2980 Sep, [facility] [place] [facility] [address] [id number] [place] [address]- 7155 Sep, [facility] [place] [facility] [address] [id number] [place] [address]- 7944 Sep, [facility] [place] [facility] [address] [id number] [place] [address]- 7677 Sep, [facility] [place] [facility] [address] [id number] [place] [address]- 2968 Sep, [facility] [place] [facility] [address] [id number] [place] [address]- 1112 Aug, [facility] [place] [facility] [address] [id number] [place] [address]- 1562 Aug, [facility] [place] [facility] [address] [id number] [place] [address]- 4538 Aug, [facility] [place] [facility] [address] [id number] [place] [address]- 5454 Aug, [facility] [address] [id number] [place] [address]- 5308 Aug, [facility] [address] [id number] [place] [address]- 0397 Aug, [facility] [address] [id number] [place] [address]- 7476 Aug, [facility] [address] [id number] [place] [address]- 7853 Aug, [facility] [address] [id number] [place] [address]- 9198 Aug, [facility] [address] [id number] [place] [address]- 8974 Aug, [facility] [address] [id number] [place] [address]- 5062 Aug, [facility] [address] [place] [id number] Aug, [facility] [address] [id number] [place] [address]- 9288 Aug, [facility] [address] [id number] [place] [address]- 8975 Aug, [facility] [address] [id number] [place] [address]- 7790 Aug, [facility] [address] [id number] [place] [address]- 4321 Aug, [facility] [address] [id number] [place] [address]- 7205 Aug, [facility] [address] [id number] [place] [address]- 1813 Aug, [facility] [address] [id number] [place] [address]- 8795 Aug, [facility] [place] [facility] [address] [id number] [place] [address]- 3902 Aug, [facility] [place] [facility] [address] [id number] [place] [address]- 7821 Aug, [facility] [place] [facility] [address] [id number] [place] [address]- 3124 Aug, [facility] [place] [facility] [address] [id number] [place] 4291 Aug, [facility] [place] [facility] [address] [id number] [place] [address]- 1055 Aug, [facility] [place] [facility] [address] [id number] [place] [address]- 0223 Aug, [facility] [place] [facility] [address] [id number] [place] [address]- 6674 Aug, [facility] [place] [facility] [address] [id number] [place] [address]- 0258 Aug, [facility] [place] [facility] [address] [id number] [place] [address]- 7356 Aug, [facility] [place] [facility] [address] [id number] [place] [address]- 5965 Aug, [facility] [place] [facility] [address] [id number] [place] [address]- 9462 Aug, [facility] [place] [facility] [address] [id number] [place] [address]- 3111 Jul, [facility] [place] [facility] [address] [id number] [place] [address]- 0231 Jul, [facility] [place] [facility] [address] [id number] [place] [address]- 9006 Jul, [facility] [place] [facility] [address] [id number] [place] 3064 Jul, [facility] [place] [facility] [address] [id number] [place] [address]- 2500 Jul, [facility] [place] [facility] [address] [id number] [place] [address]- 4671 Jul, [facility] [place] [facility] [address] [id number] [place] 3513 Jul, [facility] [place] [facility] [address] [id number] [place] 9522 Jul, [facility] [place] [facility] [address] [id number] [place] [address]- 0016 Jul, [facility] [place] [facility] [address] [id number] [place] [address]- 5980 Jul, [facility] [place] [facility] [address] [id number] [place] [address]- 3225 Jun, [facility] [place] [facility] [address] [id number] [place] [address]- 1727 Jun, [facility] [place] [facility] [address] [id number], [place] [address]- 2598 Jun, [facility] [place] [facility] [address] [id number] [place] [address]- 3442 Jun, [facility] [place] [facility] [address] [id number], [place] [address]- 3406 Jun, [facility] [place] [facility] [address] [id number], [place] [address]- 1282 Jun, [facility] [place] [facility] [address] [id number], [place] [address]- 3115 Jun, [facility] [place] [facility] [address] [id number] [place] [address]- 2363 Jun, [facility] [place] [facility] [address] [id number][place] 4096 Jun, [facility] [place] [facility] [address] [id number][place]- 0325 Jun, [facility] [place] [facility] [address] [id number] [place] [address] 2541 29 Sep, 2013 [facility] [place] [facility] [address] [id number] [place] [address] 2546 29 Sep, 2013 [facility] [place] [facility] [address] [id number] [place] [address] 2546 26 Sep, 2013 [facility] [place] [facility] [address] [id number] [place] [address] 2546 26 Sep, 2013 [facility] [place] [facility] [address] [id number] [place] [address] 2546 17 Sep, 2013 [facility] [place] [facility] [address] [id number] [place] [address]- 8179 17 Sep, 2013 [facility] [place] [facility] [address] [id number] [place] [address]- 2548 15 Sep, 2013 [facility] [place] [facility] [address] [id number] [place] [address] 2542 15 Sep, 2013 [facility] [place] [facility] [address] [id number] [place] [address]- 2549 15 Sep, 2013 [facility] [place] [facility] [address] [id number] [place] [address] 254 15 Sep, 2013 [facility] [place] [facility] [address] [id number] [place] [address] 2540 10 Sep, 2013 [facility] [place] [facility] [address] [id number] [place] [address] 2546 10 Sep, 2013 [facility] [place] [facility] [address] [id number] [place] [address] 2541 09 Sep, 2013 [facility] [place] [facility] [address] [id number] [place] [address] 2546 09 Sep, 2013 [facility] [place] [facility] [address] [id number] [place] [address] 2548 04 Sep, 2013 [facility] [place] [facility] [address] [id number] [place] [address] 0696 May, [facility] [place] [facility] [address] [id number] [place] [address]- 6600 Apr, [facility] [place] [facility] [address] [id number] [place] [address]- 9170 Apr, [facility] [place] [facility] [address] [id number] [place] [address]- 7163 Apr, [facility] [place] [facility] [address] [id number] [place] [address]- 5223 Apr, [facility] [place] [facility] [address] [id number] [place] [address]- 3400 Apr, [facility] [place] [facility] [address] [id number] [place] [address]- 2558 Apr, [facility] [place] [facility] [address] [id number] [place] [address]- 8192 Apr, [facility] [place] [facility] [address] [id number] [place] [address]- 6427 Apr, [facility] [place] [facility] [address] [id number] [place] [address] Apr, [facility] [place] [facility] [address] [id number] [place] [address] Apr, [facility] [place] [facility] [address] [id number] [place] [address] Apr, [facility] [place] [facility] [address] [id number] [place] [address] Apr, [facility] [place] [facility] [address] [id number] [place] [address] Apr, [facility] [place] [facility] [address] [id number] [place] [address] Apr, [facility] [place] [facility] [address] [id number] [place] [address] Apr, [facility] [place] [facility] [address] [id number] [place] [address] Mar, 2013 [facility] [place] [facility] [address] [id number] [place] [address] Mar, 2013 [facility] [place] [facility] [address] [id number] [place] [address] Mar, 2013 [facility] [place] [facility] [address] [id number] [place] [address]- [address] Mar, 2013 [facility] [place] [facility] [address] [id number] [place] [address] Mar, 2013 [facility] [place] [facility] [address] [id number] [place] [address]- [address] Mar, 2013 [facility] [place] [facility] [address] [id number] [place] [address]- [address] Mar, 2013 [facility] [place] [facility] [address] [id number] [place] [address]- [address] Mar, 2013 [facility] [place] [facility] [address] [id number] [place] [address]- [address] Mar, 2013 [facility] [place] [facility] [address] [id number] [place] [address]- [address] Mar, 2013 [facility] [place] [facility] [address] [id number] [place] [address]- [address] Mar, 2013 [facility] [place] [facility] [address] [id number] [place] [address]- [address] Mar, 2013 [facility] [place] [facility] [address] [id number] [place] [address]- [address] Mar, 2013 [facility] [place] [facility] [address] [id number] [place] [address]- [address]68 Mar, 2013 [facility] [place] [facility] [address] [id number] [place] [address]- [address] Mar, 2013 [facility] [place] [facility] [address] [id number] [place] [address]- [address] Mar, 2013 [facility] [place] [facility] [address] [id number] [place] [address]- [address] Mar, [facility] [place] [facility] [address] [id number] [place] [address]- [address] Mar, [facility] [place] [facility] [address] [id number] [place] [address]- [address] Feb, [facility] [place] [facility] [address] [id number] [place] [address]- [address] Feb, [facility] [place] [facility] [address] [id number] [place] [address] Feb, [facility] [place] [facility] [address] [id number] [place] [address]- 98[address] Feb, [facility] [place] [facility] [address] [id number] [place] [address]- 97[address] Feb, [facility] [place] [facility] [address] [id number] [place] [address]- [address]158 Feb, [facility] [place] [facility] [address] [id number] [place] [address]- [address] Feb, [facility] [place] [facility] [address] [id number] [place] [address]- 0649 Feb, [facility] [place] [facility] [address] [id number] [place] [address]- [address] Feb, [facility] [place] [facility] [address] [id number] [place] [address]- [address] Feb, [facility] [place] [facility] [address] [id number] [place] [address]- [address] Feb, [facility] [place] [facility] [address] [id number] [place] [address]- [address] Feb, [facility] [place] [facility] [address] [id number] [place] [address]- [address] Feb, [facility] [place] [facility] [address] [id number] [place] [address]- [address] Feb, [facility] [address] [id number] [place] [address] January, [facility] [place] [facility] [address] [id number] [place] [address]- [address] January, [facility] [place] [facility] [address] [id number] [place] [address]- [address] January, [facility] [place] [facility] [address] [id number] [place] [address]- 59[address] January, [facility] [place] [facility] [address] [id number] [place] [address] January, [facility] [place] [facility] [address] [id number] [place] [address]- 20[address] January, [facility] [place] [facility] [address] [id number] [place] [address]- [address] January, [facility] [place] [facility] [address] [id number] [place] [address]- [address] January, [facility] [place] [facility] [address] [id number] [place] [address]- 466[address] January, [facility] [place] [facility] [address] [id number] [place] [address]- 404[address] January, [facility] [place] [facility] [address] [id number] [place] [address]- [address] January, [facility] [place] [facility] [address] [id number] [place] [address]- 9185 January, [facility] [place] [facility] [address] [id number] [place] [address]- 74[address] January, [facility] [place] [facility] [address] [id number] [place] [address] January, [facility] [place] [facility] [address] [id number] [place] [address] 1383 Dec, [facility] [place] [facility] [address] [id number] [place] [address] 5235 Dec, [facility] [place] [facility] [address] [id number] [place] [address] 2571 Dec, [facility] [place] [facility] [address] [id number] [place] [address]- 6412 Dec, [facility] [place] [facility] [address] [id number] [place] [address] 6683 Dec, [facility] [place] [facility] [address] [id number] [place] [address] 8886 Dec, [facility] [place] [facility] [address] [id number] [place] [address] 4996 Dec, [facility] [place] [facility] [address] [id number] [place] [address]- 9700 Dec, [facility] [place] [facility] [address] [id number] [place] [address] 3221 Dec, [facility] [place] [facility] [address] [id number] [place] [address]- 3594 Dec, [facility] [place] [facility] [address] [id number] [place] [address]- 8587 Nov, [facility] [place] [facility] [address] [id number] [place] [address]- 2283 Nov, [facility] [place] [facility] [address] [id number] [place] [address]- 9662 Nov, [facility] [place] [facility] [address] [id number] [place] [address]- 7229 Nov, [facility] [place] [facility] [address] [id number] [place] [address]- 9138 Nov, [facility] [place] [facility] [address] [id number] [place] [address]- 9452 Nov, [facility] [place] [facility] [address] [id number] [place] [address]- 5436 Nov, [facility] [place] [facility] [address] [id number] [place] [address]- 5150 Nov, [facility] [place] [facility] [address] [id number] [place] [address] 1929 Nov, [facility] [place] [facility] [address] [id number] [place] [address]- 3152 Nov, [facility] [place] [facility] [address] [id number] [place] [address]- 7048 Oct, [facility] [place] [facility] [address] [id number] [place] [address]- 1040 Oct, [facility] [place] [facility] [address] [id number] [place] [address]- 7909 Oct, [facility] [place] [facility] [address] [id number] [place] [address]- 0702 Oct, [facility] [place] [facility] [address] [id number] [place] [address]- 0049 Oct, [facility] [place] [facility] [address] [id number] [place] [address]- 3735 Oct, [facility] [place] [facility] [address] [id number] [place] [address]- 2226 Oct, [facility] [place] [facility] [address] [id number] [place] [address]- 7328 Oct, [facility] [place] [facility] [address] [id number] [place] [address]- 6481 Oct, [facility] [place] [facility] [address] [id number] [place] [address]- 1914 Oct, [facility] [place] [facility] [address] [id number] [place] [address]- 2250 Oct, [facility] [place] [facility] [address] [id number] [place] [address]- 7543 Oct, [facility] [place] [facility] [address] [id number] [place] [address]- 4766 Oct, [facility] [address] [id number] [place] [address]- 2520 Oct, [facility] [address] [id number] [place] [address]- 3161 Sep, [facility] [address] [id number] [place] [address]- 9584 Sep, [facility] [address] [id number] [place] [address]- 7977 Sep, [facility] [address] [id number] [place] [address]- 4920 Sep, [facility] [address] [id number] [place] [address]- 6893 Sep, [facility] [address] [id number] [place] [address]- 7235 Sep, [facility] [address] [id number] [place] [address]- 2931 Sep, [facility] [address] [id number] [place] [address]- 9446 Sep, [facility] [address] [id number] [place] [address]- 6456 Sep, [facility] [address] [id number] [place] [address]- 8880 Sep, [facility] [address] [id number] [place] [address]- 9960 Aug, [facility] [place] [facility] [address] [id number] [place] [address]- 9936 Aug, [facility] [address] [id number] [place] [address]- 1438 Jul, [facility] [address] [id number] [place] [address] Jul, [facility] [place] [facility] [address] [id number] [place] [address]- 7228 Jul, [facility] [place] [facility] [address] [id number] [place] [address]- 3133 Jul, [facility] [place] [facility] [address] [id number] [place] [address]- 6308 Jul, [facility] [place] [facility] [address] [id number] [place] [address]- 6207 Jul, [facility] [place] [facility] [address] [id number] [place] [address]- 7306 Jul, [facility] [place] [facility] [address] [id number] [place] [address]- 0742 Jul, [facility] [place] [facility] [address] [id number] [place] [address]- 7491 Jul, [facility] [place] [facility] [address] [id number], [place] [address] 5[address] Jul, [facility] [place] [facility] [address] [id number], [place] [address]- 8333 Jul, [facility] [place] [facility] [address] [id number], [place] [address]- 8281 Jul, [facility] [place] [facility] [address] [id number], [place] [address]- 7391 Jul, [facility] [place] [facility] [address] [id number], [place] [address]- 8468 Jul, [facility] [place] [facility] [address] [id number], [place] [address]- 0207 Jul, [facility] [place] [facility] [address] [id number], [place] [address]- 5561 Jul, [facility] [place] [facility] [address] [id number], [place] [address]- 1403 Jul, [facility] [place] [facility] [address] [id number], [place] [address] 254 Jul, 2012 [facility] [place] [facility] [address] [id number] [place] [address]- 3852 Jul, 2012 [facility] [place] [facility] [address] [id number], [place] [address]- 3891 Jun, 2012 [facility] [place] [facility] [address] [id number] [place] [address]- 4606 Jun, 2012 [facility] [place] [facility] [address] [id number] [place] [address]- 0130 Jun, 2012 [facility] [place] [facility] [address] [id number] [place] [address]- 5815 Jun, 2012 [facility] [place] [facility] [address] [id number] [place] [address]- 4971 Jun, 2012 [facility] [place] [facility] [address] [id number], [place] [address]- 3265 Jun, 2012 [facility] [place] [facility] [address] [id number], [place] [address]- 4488 Jun, 2012 [facility] [place] [facility] [address] [facility] [id number], [place] [address]- 5180 Jun, 2012 [facility] [place] [facility] [address] [facility] [id number], [place] [address]- 4834 Jun, [facility] [place] [facility] [address] [id number], [place] [address]- 3220 Jun, 2012 [facility] [place] [facility] [address] [id number], [place] [address]- 7198 Jun, [facility] [place] [facility] [address] [id number], [place] [address]- 2862 May, 2012 [facility] [place] [facility] [address] [facility] [id number], [place] [address]- 5504 25 May, 2012 [facility] [place] [facility] [address] [id number], [place] [address]- 9611 19 May, 2012 [facility] [place] [facility] [address] [id number] [place] [address]- 8892 17 May, 2012 [facility] [place] [facility] [address] [id number] [place] [address]- 3086 11 May, 2012 [facility] [place] [facility] [address] [id number] [place] [address] 2546 10 May, 2012 [facility] [place] [facility] [address] [id number] [place] [address] 2546 09 May, 2013 [facility] [place] [facility] [address] [id number] [place] [address] 2549 05 May, 2013 [facility] [place] [facility] [address] [id number] [place] [address]- 2014 Apr, [facility] [place] [facility] [address] [id number] [place] [address]- 8289 Apr, [facility] [place] [facility] [address] [id number] [place] [address]- 5818 Apr, [facility] [place] [facility] [address] [id number] [place] [address]- 1334 Apr, [facility] [place] [facility] [address] [id number] [place] [address]- 0416 Apr, [facility] [place] [facility] [address] [id number] [place] [address]- 7528 Mar, [facility] [place] [facility] [address] [id number] [place] [address]- 8908 Mar, [facility] [place] [facility] [address] [id number] [place] [address]- 7707 Mar, [facility] [place] [facility] [address] [id number] [place] [address]- 0194 Mar, [facility] [place] [facility] [address] [id number] [place] [address]- 1307 Mar, [facility] [place] [facility] [address] [id number] [place] [address]- 8894 Mar, [facility] [address] [id number] [place] [address]- 1524 Mar, [facility] [place] [facility] [address] [id number] [place] [address]- 4242 Mar, [facility] [address] [id number] [place] [address]- 4157 Feb, [facility] [place] [facility] [address] [id number] [place] [address]- 7575 Feb, [facility] [address] [id number] [place] [address]- 4178 January, [facility] [address] [id number] [place] [address]- 2351 January, [facility] [address] [id number] [place] [address]- 3665 Dec, [facility] [place] [facility] [address] [id number] [place] [address]- 2992 Dec, [facility] [address] [id number] [place] [address]- 9661 Nov, [facility] [place] [facility] [address] [id number] [place] [address]- 8403 Nov, [facility] [place] [facility] [address] [id number], [place] [address]- 1612 Nov, [facility] [place] [facility] [address] [id number], [place] [address]- 1046 Nov, [facility] [place] [facility] [address] [id number] [place] [address]- 2692 Oct, [facility] [place] [facility] [address] [id number] [place] [address]- 1917 Oct, [facility] [place] [facility] [address] [id number] [place] [address]- 9286 Oct, [facility] [place] [facility] [address] [id number] [place] [address]- 0709 26 Oct, 2012 [facility] [address] [id number] [place] [address]- 1176 16 Oct, 2012 [facility] [address] [id number] [place] [address] 2546 14 Oct, 2012 [facility] [address] [id number] [place] [address] 2546 08 Oct, 2012 [facility] [address] [id number] [place] [address] 2541 07 Oct, 2012 [facility] [address] [id number] [place] [address] 2546 03 Oct, 2012 [facility] [address] [id number] [place] [address]- 4783 30 Sep, 2012 [facility] [address] [id number] [place] [address]- 0624 29 Sep, 2012 [facility] [address] [id number] [place] [address]- 0204 Sep, [facility] [address] [id number] [place] [address]- 4750 Sep, [facility] [address] [id number] [place] [address]- 0029 17 Sep, 2012 [facility] [address] [id number] [place] [address]- 8493 Sep, [facility] [address] [id number] [place] [address] 2542 09 Sep, 2012 [facility] [place] [facility] [address] [id number] [place] [address] 2545 08 Sep, 2012 [facility] [place] [facility] [address] [id number] [place] [address] 2547 31 Aug, 2012 [facility] [place] [facility] [address] [id number] [place] [address]- 9308 Aug, [facility] [place] [facility] [address] [id number] [place] [address]- 8821 Aug, [facility] [place] [facility] [address] [id number] [place] 1796 Aug, [facility] [place] [facility] [address] [facility] [id number] [place] 2026 Aug, [facility] [place] [facility] [address] [id number] [place] 6723 Aug, [facility] [place] [facility] [address] [id number] [place] [address]- 5320 Aug, [facility] [place] [facility] [address] [id number] [place] [address]- 2695 Aug, [facility] [place] [facility] [address] [id number] [place] [address]- 3068 Jul, [facility] [place] [facility] [address] [id number], [place] [address]- 7026 Jul, [facility] [place] [facility] [address] [id number], [place] [address]- 2596 Jul, [facility] [place] [facility] [address] [id number], [place] [address]- 0884 Jul, [facility] [place] [facility] [address] [id number], [place] [address]- 2139 Jul, [facility] [place] [facility] [address] [id number], [place] [address]- 4526 Jul, [facility] [place] [facility] [address] [id number], [place] [address]- 9194 Jun, [facility] [place] [facility] [address] [id number], [place] [address]- 3869 Jun, [facility] [place] [facility] [address] [facility] [id number], [place] [address]- 0953 Jun, [facility] [place] [facility] [address] [id number] [place] [address]- 1665 23 Jun, 2012 [facility] [place] [facility] [address] [id number] [place] [address]- 1818 Jun, [facility] [place] [facility] [address] [id number] [place] [address]- 5066 Jun, [facility] [place] [facility] [address] [id number] [place] [address]- 5854 Jun, [facility] [place] [facility] [address] [id number] [place] [address]- 3958 Jun, [facility] [place] [facility] [address] [id number] [place] [address]- 4215 10 Jun, 2012 [facility] [place] [facility] [address] [id number] [place] [address]- 9865 26 May, 2012 [facility] [place] [facility] [address] [id number] [place] [address]- 7954 24 May, 2012 [facility] [place] [facility] [address] [id number] [place] [address]- 9164 18 May, 2012 [facility] [place] [facility] [address] [id number] [place] [address]- 0460 30 Apr, 2012 [facility] [place] [facility] [address] [id number] [place] [address]- 3033 29 Apr, 2012 [facility] [place] [facility] [address] [id number] [place] [address] 2542 Apr, [facility] [place] [facility] [address] [id number] [place] [address]- 9951 14 Apr, 2012 [facility] [place] [facility] [address] [id number] [place] [address]- 5801 Apr, [facility] [place] [facility] [address] [id number] [place] [address]- 8493 Apr, [facility] [place] [facility] [address] [id number] [place] [address]- 4580 Mar, [facility] [place] [facility] [address] [id number] [place] [address]- 6104 Mar, [facility] [place] [facility] [address] [id number] [place] [address]- 4482 Mar, [facility] [address] [id number] [place] [address]- 9886 Mar, [facility] [place] [facility] [address] [id number] [place] [address]- 0361 Feb, [facility] [address] [id number] [place] [address]- 5039 Feb, [facility] [address] [id number] [place] [address]- 6096 Feb, [facility] [address] [id number] [place] [address]- 5914 Feb, [facility] [address] [id number] [place] [address]- 8615 Feb, [facility] [address] [id number] [place] [address]- 9158 January, [facility] [address] [id number] [place] [address]- 4301 January, [facility] [address] [id number] [place] [address]- 2709 January, [facility] [place] [facility] [address] [id number] [place] [address]- 1846 January, [facility] [place] [facility] [address] [id number] [place] [address]- 5100 January, [facility] [place] [facility] [address] [id number] [place] [address]- 3426 January, [facility] [place] [facility] [address] [id number] [place] [address]- 6087 Dec, [facility] [place] [facility] [address] [id number], [place] [address]- 3179 24 Dec, 2011 [facility] [address] [id number] [place] [address]- 3827 17 Dec, 2011 [facility] [place] [facility] [address] [id number] [place] [address]- 6776 09 Dec, 2011 [facility] [place] [facility] [address] [facility] [id number] [place] [address]- 7996 06 Dec, 2011 [facility] [place] [facility] [address] [id number] [place] [address]- 9774 27 Nov, 2011 [facility] [place] [facility] [address] [id number] [place] [address]- 7509 14 Nov, 2011 [facility] [place] [facility] [address] [id number] [place] [address]- 1036 Nov, [facility] [id number] [place] [address]- 1265 Nov, [facility] [place] [facility] [address] [id number] [place] [address]- 5806 29 Oct, 2011 [facility] [place] [facility] [address] [id number] [place] [address]- 9591 28 Oct, 2011 [facility] [place] [facility] [address] [facility] [id number] [place] [address]- 0466 24 Oct, 2011 [facility] [place] [facility] [address] [id number] [place] [address]- 3095 13 Oct, 2011 [facility] [place] [facility] [address] [id number] [place] [address]- 8719 08 Oct, 2011 [facility] [place] [facility] [address] [id number] [place] [address]- 2270 Sep, [facility] [place] [facility] [address] [id number] [place] [address]- 7072 30 Sep, 2011 [facility] [place] [facility] [address] [facility] [id number], [place] [address]- 3277 Sep, [facility] [place] [facility] [address] [id number] [place] [address]- 1889 Sep, [facility] [place] [facility] [address] [id number] [place] [address]- 5875 Sep, [facility] [place] [facility] [address] [id number] [place] [address]- 4067 Sep, [facility] [place] [facility] [address] [id number] [place] [address] Aug, [facility] [place] [facility] [address] [id number] [place] [address] Aug, [facility] [place] [facility] [address] [id number] [place] [address] Aug, [facility] [place] [facility] [address] [id number] [place] [address] Jul, [facility] [place] [facility] [address] [id number] [place] [address] Jul, [facility] [place] [facility] [address] [id number] [place] [address] Jul, [facility] [place] [facility] [address] [id number] [place] [address] Jul, [facility] [place] [facility] [address] [id number] [place] [address] Jun, [facility] [place] [facility] [address] [id number] [place] [address] Jun, [facility] [place] [facility] [address] [id number] [place] [address]- [address] Jun, [facility] [place] [facility] [address] [id number] [place] [address]99 Jun, [facility] [place] [facility] [address] [id number] [place] [address] 113[address] Jun, [facility] [place] [facility] [address] [id number] [place] [address] 7947 10 Jun, 2011 [facility] [place] [facility] [address] [id number] [place] [address]- [address]27 11 Mar, 2011 [facility] [place] [facility] [address] [id number] [place] [address]- [address] 18 Dec, 2010 [facility] [place] [facility] [address] [id number] [place] [address]- [address] 11 Dec, 2010 [facility] [place] [facility] [address] [id number] [place] [address] 6[address] 18 Nov, 2010 [facility] [place] [facility] [address] [id number] [place] [address]- [address] 16 Nov, 2010 [facility] [place] [facility] [address] [id number] [place] [address]- [address] 10 Sep, 2010 [facility] [place] [facility] [address] [id number] [place] [address] 31 Aug, 2010 [facility] [place] [facility] [address] [id number] [place] [address]- 2469 29 Aug, 2010 [facility] [place] [facility] [address] [id number] [place] [address]- [address]678 29 Aug, 2010 [facility] [place] [facility] [address] [id number] [place] [address]- 276[address] 29 Aug, 2010 [facility] [place] [facility] [address] [id number] [place] [address]- 42[address] 27 Aug, 2010 [facility] [place] [facility] [address] [id number] [place] [address] 2546 14 Aug, 2010 [facility] [place] [facility] [address] [id number] [place] [address] 2546 08 Aug, 2010 [facility] [place] [facility] [address] [id number] [place] [address]- [address]44 08 Aug, 2010 [facility] [place] [facility] [address] [id number] [place] [address]- [address]46 07 Aug, 2010 [facility] [place] [facility] [address] [id number] [place] [address]- 9488 Aug, [facility] [address] [id number] [place] [address] Aug, [facility] [place] [facility] [address] [id number] [place] [address] 2546 Aug, [facility] [address] [id number] [place] [address]- 2976 Jul, [facility] [place] [facility] [address] [id number] [place] [address] 2545 Jul, [facility] [id number] [place] [address], [place] [address]- [address] Jul, [facility] [address] [id number] [place] [address]- 1771 Jul, [facility] [address] [facility] [id number] [place] [address]- 40[address] Jul, [facility] [address] [id number] [place] [address]- 30[address] Jul, [facility] [place] [facility] [address] [id number] [place] [address] 3268 24 Jun, 2010 [facility] [address] [facility] [id number] [place] [address]- [address] Jun, [facility] [place] [facility] [address] [id number] [place] [address] 2548 Jun, [facility] [place] [facility] [address] [id number] [place] [address]- 3035 Jun, [facility] [place] [facility] [address] [id number] [place] [address] 7243 16 Apr, 2010 [facility] [place] [facility] [address] [id number] [place] [address] 2546 Mar, [facility] [place] [facility] [address] [id number] [place] [address]- [address] Feb, [facility] [place] [facility] [address] [id number] [place] [address]- 8[address] 11 Jan, 2010 [facility] [place] [facility] [address] [id number] [place] [address] 15 Dec, 2009 [facility] [place] [facility] [address] [id number] [place] [address]- [address]266 Nov, [facility] [place] [facility] [address] [id number] [place] [address]- 6683 Aug, [facility] [address] [id number] [place] [address]- 7606 Aug, [facility] [place] [facility] [address] [id number] [place] [address]- 2453 Aug, [facility] [place] [facility] [address] [facility] [id number] [place] [address]- 5457 Jul, [facility] [place] [facility] [address] [id number], [place] [address] 8066 Jul, [facility] [place] [facility] [address] [facility] [id number], [place] [address] Jul, [facility] [place] [facility] [address] [facility] [id number], [place] [address] 44[address] 30 Jun, 2009 [facility] [place] [facility] [address] [facility] [id number], [place] [address] 29 Jun, 2009 [facility] [place] [facility] [address] [id number], [place] [address] 7556 Jun, [facility] [place] [facility] [address] [id number], [place] [address]- 3485 Jun, [facility] [place] [facility] [address] [id number], [place] [address]681 Jun, [facility] [place] [facility] [address] [facility] [id number] [address] Jun, [facility] [place] [facility] [address] [id number], [place] [address] Apr, [facility] [place] [address] [facility] [id number], [place] [address] Apr, [facility] [place] [address] [facility] [id number], [place] [address] 67[address] Feb, [facility] [place] [address] [facility] [id number], [place] [address] January, [place] [address] [facility] [id number] [address] [address] Dec, IMMUNIZATIONS No Known Immunizations SOCIAL HISTORY Never Assessed REASON FOR VISIT clarification PLAN OF CARE VITAL SIGNS MEDICATIONS Medication Instructions Dosage Frequency Start Date End Date Duration Status NovoLog Flexpen 100 UNIT/ML INJECT 30 UNITS SUBCUTANEOUSLY WITH BREAKFAST, 30 UNITS WITH LUNCH AND 40 UNITS WITH EVENING MEAL Active RESULTS No Results PROCEDURES No Known [...] History inability to urinate 09/16/15 Hospitalization History [facility] early Hospitalization History hyperkalemia 10/2017 Hospitalization History fluid in lung
--- OUTSIDE RECORDS SUMMARY | 2018-08-08 12:29 | XMS REPORT ---
Author Author NOEMI WASHBURN Organization 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 Name Role Phone NOEMI WASHBURN Unavailable PROBLEMS Type Condition ICD9-CM Code WLP54-WO Code Onset Dates Condition Status SNOMED Code Problem Chronic lymphocytic leukemia C91.10 Active 58808941 Problem Insomnia, unspecified type G47.00 Active 993907742 Problem Lymphocytosis D72.820 Active 73202902 Problem Anxiety F41.9 Active 37281816 Problem Eye exam abnormal R93.8 Active 734594901 Problem Morbid obesity E66.01 Active 582285267 Problem Diabetic polyneuropathy associated with type 2 diabetes mellitus E11.42 Active 23251495 Problem Essential hypertension I10 Active 97889916 Problem Falling R29.6 Active 723205025 Problem 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 Active 764841193 Problem Cough R05 Active 65227865 Problem Dysuria R30.0 Active 31349262 Problem Eustachian tube dysfunction, unspecified laterality H69.80 Active 25532465 Problem Bilateral primary osteoarthritis of knee M17.0 Active 209292297 Problem Polyneuropathy associated with underlying disease G63 Active 580593055 Problem Anemia of chronic illness D63.8 Active 479079171 Problem Retinal edema H35.81 Active 5710478 Problem DM neuro manif type II E11.49 Active 17331455 Problem Diabetes E11.9 Active 37016089 Problem Hypokalemia E87.6 Active 16245261 Problem Benign prostatic hyperplasia with lower urinary tract symptoms, unspecified morphology N40.1 Active 009514694 Problem Reactive airway disease J45.909 Active 336011292853 Problem Bipolar I disorder, most recent episode (or current) mixed, moderate F31.62 Active 48162759 Problem Chronic pain G89.29 Active 48500343 Problem Leukocytosis D72.829 Active 897342487 ALLERGIES No Information ENCOUNTERS Encounter Location Date Diagnosis [place] [address] [address] January, [place] [address] [place] [id number] [place] [address] 82336- 2681 Dec, [place] [id number] [place] [address] 52674- 9784 Dec, Bipolar I disorder, most recent episode (or current) mixed, moderate F31.62 [place] [address] [id number] [place] [address] 66879- 5223 Dec, Chronic pain G89.29 [place] [address] [id number] [place] [address] 81842- 8636 Dec, DM neuro manif type II E11.49 ; Right flank pain R10.9 ; 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 ; Encounter for medication monitoring Z51.81 and BMI 50.0-59.9, adult Z68.43 [place] [address] [place] [place] [id number] [place] [address] 38433- 0635 Dec, Bipolar I disorder, most recent episode (or current) mixed, moderate F31.62 [place] [address] [id number] [place] [address] 34799- 0001 Nov, Bipolar I disorder, most recent episode (or current) mixed, moderate F31.62 [place] [address] [place] [address] 99018- 8323 Nov, Chronic pain G89.29 [place] [address] [id number] [place] [address] 07988- 7137 Nov, Bipolar I disorder, most recent episode (or current) mixed, moderate F31.62 [place] [id number] [place] [address] 79787- 2997 Nov, Hypokalemia E87.6 [place] [id number] [place] [address] 32709- 3468 Nov, Bipolar I disorder, most recent episode (or current) mixed, moderate F31.62 [facility] [id number] [place] [address] 20725- 7046 Oct, Chronic pain G89.29 [facility] [address] [id number] [place] [address] 19668- 1753 Oct, BMI 50.0-59.9, adult Z68.43 and Bipolar I disorder, most recent episode (or current) mixed, moderate F31.62 [facility] [id number] [place] [address] 28185- 8136 Oct, Bipolar I disorder, most recent episode (or current) mixed, moderate F31.62 [place] [address] [place] [id number] [place] [address] 97429- 3476 Oct, [place] [address] [id number] [place] [address] 53197- 4985 Oct, Hypokalemia E87.6 [place] [address] [address] [id number] [place] [address] 12839- 6806 Oct, DM neuro manif type II E11.49 [place] [address] [place] [address] [id number] [place] [address] 06720- 2231 Oct, Bipolar I disorder, most recent episode (or current) mixed, moderate F31.62 [place] [address] [address] [id number] [place] [address] 27759- 4133 Oct, Bipolar I disorder, most recent episode (or current) mixed, moderate F31.62 [place] [address] [address] [id number] [place] [address] 36436- 1644 14 Oct, 2017 Hyperkalemia E87.5 ; Falling R29.6 ; BMI 50.0-59.9, adult Z68.43 and Acute left ankle pain M25.572 [facility] [address] [address] [id number] [place] [address] 32419- 1683 Oct, DM neuro manif type II E11.49 [place] [address], [place] [address] 8715 Oct, [place] [address] [place] [id number] [place] [address] 98770- 5735 Sep, Chronic pain G89.29 [place] [address] [place] [address] 08916- 4849 Sep, [place] [address] [id number] [place] [address] 15874- 1171 Sep, Bilateral primary osteoarthritis of knee M17.0 [place] [address] [id number] [place] [address] 89528- 5810 Sep, Generalized edema R60.1 [place] [address] [id number] [place] [address] 36709- 7648 Sep, Bipolar I disorder, most recent episode (or current) mixed, moderate F31.62 [place] [address] [place] [id number] [place] [address] 04488- 7397 Sep, Hypoxia R09.02 ; Other hypervolemia E87.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 ; Anemia of chronic illness D63.8 and BMI 50.0- 59.9, adult Z68.43 [place] [address] [place] [address] 28731- 5727 Sep, [place] [address] [place] [id number] [place] [address] 48366- 9609 Sep, Bipolar I disorder, most recent episode (or current) mixed, moderate F31.62 [place] [address] [place] [id number] [place] [address] 92965- 4289 Aug, Chronic pain G89.29 [place] [address] [place] [address] 05959- 4504 Aug, Generalized edema R60.1 [place] [address], [place] [address] 18 Aug, 2017 [facility] [address] [place] [address] 00241- 9837 18 Aug, 2017 [facility] [address] [place] [id number] [place] [address] 94506- 8556 14 Aug, 2017 Bipolar I disorder, most recent episode (or current) mixed, moderate F31.62 [place] [address] [place] [id number] [place] [address] 03706- 9221 Aug, Bipolar I disorder, most recent episode (or current) mixed, moderate F31.62 [place] [address] [place] [id number] [place] [address] 36521- 2296 04 Aug, 2017 Chronic pain G89.29 [place] [address] [place] [id number] [place] [address] 92579- 0653 Jul, Bipolar I disorder, most recent episode (or current) mixed, moderate F31.62 [place] [address] [place] [address] 00956- 3793 Jul, Bipolar I disorder, most recent episode (or current) mixed, moderate F31.62 and BMI 60.0-69.9, adult Z68.44 [place] [address] [place] [address] 38453- 8132 16 Jul, 2017 Bipolar I disorder, most recent episode (or current) mixed, moderate F31.62 [place] [address] [place] [address] 32225- 6099 06 Jul, 2017 Chronic pain G89.29 [place] [address] [place] [id number] [place] [address] 66162- 5211 02 Jul, 2017 Bipolar I disorder, most recent episode (or current) mixed, moderate F31.62 [place] [address] [place] [address] 18041- 5753 18 Jun, 2017 Polyneuropathy associated with underlying disease G63 and Diabetes E11.9 [place] [address] [place] [address] 00150- 0307 16 Jun, 2017 Bipolar I disorder, most recent episode (or current) mixed, moderate F31.62 [facility] [address] [place] [id number] [place] [address] 12988- 6636 09 Jun, [address] [facility] [address] [place] [id number] [place] [address] 86317- 4412 27 May, 2017 Bipolar I disorder, most recent episode (or current) mixed, moderate F31.62 [facility] [address] [place] [id number] [place] [address] 31734- 7992 21 May, 2017 Bipolar I disorder, most recent episode (or current) mixed, moderate F31.62 [facility] [address] [place] [id number] [place] [address] 66503- 2018 20 May, 2017 Diabetic polyneuropathy associated with type [address] [facility] [address] [place] [id number] [place] [address] 11673- 7531 18 May, 2017 Bipolar I disorder, most recent episode (or current) mixed, moderate F31.62 [place] [address] [place] [id number] [place] [address] 31492- 8580 13 May, 2017 Bipolar I disorder, most recent episode (or current) mixed, moderate F31.62 [place] [address] [place] [id number] [place] [address] 30499- 8177 May, Chronic pain G89.29 [facility] [address] [place] [id number] [place] [address] 51834- 5119 Apr, Bipolar I disorder, most recent episode (or current) mixed, moderate F31.62 [facility] [address] [place] [id number] [place] [address] 54707- 8755 Apr, [facility] [address] [place] [id number] [place] [address] 77942- 0575 Apr, Chronic pain G89.29 and DM neuro manif type II E11.49 [facility] [address], [place] [address]- 9516 Apr, [facility] [address] [place] [id number] [place] [address] 989151- 9460 Apr, Bipolar I disorder, most recent episode (or current) mixed, moderate F31.62 [facility] [address] [place] [id number] [place] [address] 50257- 5713 Apr, Chronic pain G89.29 [facility] [address] [id number] [place] [address] 49428- 1681 Apr, Iliotibial band syndrome, left M76.32 [facility] [address] [place] [id number] [place] [address] 38339- 0191 Apr, Bipolar I disorder, most recent episode (or current) mixed, moderate F31.62 [facility] [address] [place] [address] [id number] [place] [address] 54005- 9367 Mar, Bipolar I disorder, most recent episode (or current) mixed, moderate F31.62 [facility] [address] [place] [address] 24063- 8059 Mar, Bipolar I disorder, most recent episode (or current) mixed, moderate F31.62 [facility] [address] [place] [address] 98427- 7673 Mar, [facility] [address] [place] [id number] [place] [address] 01356- 5261 Mar, Bipolar I disorder, most recent episode (or current) mixed, moderate F31.62 [facility] [address] [place] [address] 62053- 8948 Mar, Chronic pain G89.29 [facility] [address] [place] [address] 18025- 3826 Mar, Bipolar I disorder, most recent episode (or current) mixed, moderate F31.62 [facility] [address] [place] [address] 02020- 4068 Mar, Bipolar I disorder, most recent episode (or current) mixed, moderate F31.62 [place] [address] [place] [id number] [place] [address] 24095- 4932 Mar, Acute pain of left knee M25.562 ; Left hip pain M25.552 ; Generalized edema R60.1 and Tongue swelling R22.0 [place] [address] [place] [id number] [place] [address] 52559- 3869 Mar, [facility] [address] [place] [id number] [place] [address] 88950- 6340 Feb, Chronic pain G89.29 [place] [address] [place] [id number] [place] [address] 03352- 3869 Feb, Diabetes E11.9 [place] [address] [place] [id number] [place] [address] 21237- 0577 January, Chronic pain G89.29 [place] [address] [place] [id number] [place] [address] 32219- 7013 January, [facility] [address] [place] [id number] [place] [address] 17426- 9532 January, Bipolar I disorder, most recent episode (or current) mixed, moderate F31.62 [place] [address] [place] [id number] [place] [address] 42676- 4757 Dec, Bipolar I disorder, most recent episode (or current) mixed, moderate F31.62 [place] [address] [place] [id number] [place] [address] 77233- 9158 Dec, Chronic pain G89.29 [place] [address] [place] [id number] [place] [address] 66936- 7845 Dec, Bipolar I disorder, most recent episode (or current) mixed, moderate F31.62 [place] [address] [place] [id number] [place] [address] 13003- 0807 Dec, Diabetes E11.9 ; Essential hypertension I10 ; Chronic pain G89.29 and Morbid obesity E66.01 [facility] [id number] [address]- 3396 Dec, [facility] [id number] [address] 2546 Dec, Bipolar I disorder, most recent episode (or current) mixed, moderate F31.62 [facility] [address], [place] [address]- 9360 Dec, Bipolar I disorder, most recent episode (or current) mixed, moderate F31.62 [facility] [id number] [address]- 6666 Nov, Chronic pain G89.29 [facility] [id number] [address]- 5746 Nov, Bipolar I disorder, most recent episode (or current) mixed, moderate F31.62 [facility] [address], [place] [address]- 2662 Nov, [facility] [id number] [address]- 5524 Nov, Bipolar I disorder, most recent episode (or current) mixed, moderate F31.62 [facility] [address] [address]- 6669 Nov, Bipolar I disorder, most recent episode (or current) mixed, moderate F31.62 [facility] [address], [place] [address]- 4637 Nov, [facility] [id number] [address]- 9186 Nov, [facility] [id number], [place] [address]- 2506 Nov, [facility] [id number] [address]- 4566 Oct, Chronic pain G89.29 [facility] [address], [place] [address]- 5838 Oct, Bipolar I disorder, most recent episode (or current) mixed, moderate F31.62 [facility] [address] [place] [address] 01552- 0978 Oct, 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 [address] [id number] [place] [address] 14156- 2682 Oct, [facility] [id number] [place] [address] 67628- 5312 Oct, Diabetes E11.9 [facility] [id number] [place] [address] 54368- 8646 Oct, Bipolar I disorder, most recent episode (or current) mixed, moderate F31.62 [facility] [address] [place] [address] 96933- 5664 Sep, Chronic pain G89.29 [facility] [address] [id number] [place] [address] 52284- 1623 Sep, Chronic pain G89.29 [facility] [address] [place] [address] 35933- 2261 Aug, Chronic pain G89.29 [facility] [address] [place] [address] 69065- 4752 Jul, [facility] [address] [id number] [place] [address] 73191- 5736 Jul, Diabetes E11.9 [facility] [address] [place] [address] 96733- 2410 Jul, Chronic pain G89.29 [facility] [id number] [place] [address] 46631- 0782 Jul, Bipolar I disorder, most recent episode (or current) mixed, moderate F31.62 [place] [address] [place] [address] [id number] [place] [address] 46398- 2180 Jun, Bipolar I disorder, most recent episode (or current) mixed, moderate F31.62 [place] [address] 66455- 1638 Jun, [place] [address] 96289- 9189 Jun, Bipolar I disorder, most recent episode (or current) mixed, moderate F31.62 [place] [address] 72834- 2658 May, Insomnia, unspecified type G47.00 [place] [address] 55683- 3946 May, Bipolar I disorder, most recent episode (or current) mixed, moderate F31.62 [place] [address] [place] [id number] [place] [address] 30798- 6708 14 May, 2016 [place] [address] 53487- 5333 May, Bipolar I disorder, most recent episode (or current) mixed, moderate F31.62 [place] [address] [place] [id number] [place] [address] 17500- 8190 May, Diabetes E11.9 and Essential hypertension I10 [place] [address] [place] [id number] [place] [address] 48406- 7681 Apr, Chronic pain G89.29 [place] [address] 18925- 3356 Apr, Bipolar I disorder, most recent episode (or current) mixed, moderate F31.62 [place] [address] 57508- 1853 Apr, [place] [address] [place] [address] 49730- 7982 Apr, [place] [address] [address] [id number] [place] [address] 25692- 3744 Mar, Chronic pain G89.29 ; Headache, unspecified headache type R51 ; Neuropathy G62.9 ; Pain of right hip joint M25.551 and Essential hypertension I10 [place] [id number] [place] [address] 07564- 3888 Mar, Chronic pain G89.29 [place] [id number] [place] [address] 54602- 8246 Mar, Bipolar I disorder, most recent episode (or current) mixed, moderate F31.62 [place] [id number] [place] [address] 77492- 9543 Feb, Bipolar I disorder, most recent episode (or current) mixed, moderate F31.62 and Insomnia, unspecified type G47.00 [place] [address] [id number] [place] [address] 02650- 2905 Feb, Chronic pain G89.29 [place] [id number] [place] [address] 48764- 6156 Feb, Bipolar I disorder, most recent episode (or current) mixed, moderate F31.62 [place] [address] [place] [address] 28526- 2538 January, Bipolar I disorder, most recent episode (or current) mixed, moderate F31.62 [place] [address] [place] [address] 61278- 2701 January, Chronic pain G89.29 [place] [id number] [place] [address] 75520- 2453 January, Chronic pain G89.29 and Essential hypertension I10 [place] [id number] [place] [address] 29091- 8658 January, Bipolar I disorder, most recent episode (or current) mixed, moderate F31.62 [facility] [id number] [place] [address] 50058- 2504 Dec, [facility] [id number] [place] [address] 43371- 4558 Dec, [facility] [id number] [place] [address] 42910- 8636 Dec, [facility] [address] 04478- 3859 Dec, [facility] [address] 54079- 5289 Nov, Reactive airway disease J45.909 [facility] [address] 31796- 0026 Nov, [facility] [address] 50102- 3028 Nov, [facility] [id number] [place] [address] 19545- 0464 Nov, [facility] [id number] [place] [address] 96677- 3990 Nov, [facility] [id number] [place] [address] 88968- 7361 Nov, Onychomycosis B35.1 ; Hammertoe M20.40 ; [place] or callus L84 and DM neuro manif type II E11.49 [facility] [id number] [place] [address] 48318- 1281 Nov, Chronic pain G89.29 ; Leukocytosis D72.[address] [facility] [id number] [place] [address] 38768- 9099 Nov, [facility] [id number] [place] [address] 10990- 0700 23 Feb, [address] [facility] [id number] [place] [address] 07430- 7637 Oct, [facility] [address] 25931- 8025 Oct, [facility] [id number] [place] [address] 97423- 8755 Oct, Mastoiditis, unspecified laterality H70.90 and Type 2 diabetes mellitus with complication E11.8 [place] [id number] [place] [address] 06274- 8367 Sep, [place] [address] 72497- 3339 Sep, Dysuria R30.0 ; Cough R05 ; Benign prostatic hyperplasia with lower urinary tract symptoms, unspecified morphology N40.1 ; Hypokalemia E87.6 and Eustachian tube dysfunction, unspecified laterality H69.80 [place] [id number] [place] [address] 82840- 6946 Sep, Moderate mixed bipolar I disorder F31.62 [place] [address] 02652- 0673 Sep, Hypokalemia E87.6 [place] [address] [place] [id number] [place] [address] 49182- 6537 Sep, [place] [address] [place] [id number] [place] [address] 97618- 5995 Sep, Upper respiratory tract infection, unspecified type J06.9 [place] [address] [place] [id number] [place] [address]53- 3823 Aug, [place] [address] [address] Aug, Dysuria R30.0 [place] [address] [place] [id number] [place] [address]63- 8942 Aug, [place] [id number] [address] Jul, [facility] [id number] [address] Jul, [facility] [id number] [address] Jul, [facility] [id number] [place] [address]- 5525 Jul, [facility] [id number] [address] Jun, [facility] [id number] [place] [address]78- 1341 Jun, [facility] [id number] [address] Jun, [facility] [id number] [place] [address]36- 4087 May, [facility] [id number] [address] May, Bipolar I disorder, most recent episode (or current) mixed, moderate 296.62 [facility] [id number] [address] 16 May, 2015 [facility] [id number] [address] May, Bipolar I disorder, most recent episode (or current) mixed, moderate 296.62 and Major depressive disorder, recurrent episode, severe, specified as with psychotic behavior 296.34 [facility] [address] [address] May, Bipolar I disorder, most recent episode (or current) mixed, moderate 296.62 [facility] [address] [address] May, [facility] [address] [address] Apr, [facility] [address] [address] Apr, [facility] [id number] [place] [address] 08835- 7029 Apr, Unspecified disorder of kidney and ureter 593.9 and Diabetes mellitus type [address], [address] [facility] [id number] [place] [address] 00914- 5917 Apr, [facility] [id number] [place] [address] 39842- [address] Apr, [facility] [id number] [place] [address] 72888- 1429 Apr, [facility] [id number] [place] [address] 42222- 7626 Apr, [facility] [id number] [place] [address] 24110- 9537 Apr, Diabetes mellitus type II, uncontrolled 250.02 [facility] [id number] [place] [address] 24901- 7101 Apr, [facility] [id number] [place] [address] 51366- 2451 Mar, [facility] [address] [address] 8772 Mar, [facility] [id number] [place] [address] 53808- 7940 Mar, [facility] [id number] [address] 5211 Mar, Major depressive disorder, recurrent episode, severe, specified as with psychotic behavior 296.34 and Bipolar I disorder, most recent episode (or current) mixed, moderate 296.62 [facility] [address] [address] 4633 Mar, Diabetes 250.00 ; Anuria 788.5 ; Nausea and vomiting 787.[address] [facility] [id number] [place] [address] 07086- 1681 Mar, Diabetes 250.00 [facility] [id number] [place] [address] 83720- 5597 Mar, [facility] [id number] [place] [address] 97917- 8660 Mar, Diabetes 250.00 [facility] [id number] [place] [address] 94771- 6903 Mar, [facility] [id number] [place] [address] 32060- 9416 Mar, [facility] [id number] [place] [address] 43103- 5395 Mar, [facility] [id number] [place] [address] 60412- 6947 Mar, [facility] [id number] [place] [address] 04657- 5296 Mar, Bipolar I disorder, most recent episode (or current) mixed, moderate 296.62 and Major depressive disorder, recurrent episode, severe, specified as with psychotic behavior [address] [place] [id number] [place] [address] 97557- 2034 Mar, Magnesium deficiency 275.2 ; Hypokalemia 276.8 ; Nausea & vomiting 787.01 and Diabetes mellitus type [address], [address] [facility] [id number] [place] [address] 18442- 4325 Feb, [facility] [id number] [place] [address] 90715- 5510 Feb, Bipolar I disorder, most recent episode (or current) mixed, moderate 296.62 [facility] [id number] [place] [address] 73120- 7383 Feb, Nausea and vomiting 787.01 ; Left elbow pain 719.42 ; Anuria 788.[address] [facility] [id number] [place] [address] 93168- 7987 Feb, [facility] [id number] [place] [address] 37895- 1775 Feb, Hypopotassemia 276.[address] [facility] [id number] [place] [address] 91314- 3674 Feb, Hypopotassemia 276.[address] [facility] [id number] [place] [address] 42976- 4160 Feb, Seborrheic keratoses 702.19 [facility] [id number] [place] [address] 11420- 4615 Feb, Hypopotassemia 276.8 and Low magnesium levels 275.2 [facility] [id number] [place] [address] 94822- 1976 January, [facility] [id number] [place] [address] 87958- 9078 January, [facility] [id number] [place] [address] 51034- 7086 January, [facility] [id number] [place] [address] 44669- 1767 January, Scalp lesion 709.9 [facility] [id number] [place] [address] 36887- 4067 January, [facility] [id number] [place] [address] 49399- 3177 Dec, Tear of medial cartilage or meniscus of knee, current 836.0 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 [facility] [id number] [place] [address] 71302- 7900 Dec, [facility] [id number] [place] [address] [place] [address]- 2355 29 Dec, 2014 [facility] [address] [id number] [place] 7095 28 Dec, 2014 Squamous cell carcinoma, 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 [facility] [place] [facility] [address] [id number] [place] [address]- 3896 14 Dec, 2014 [facility] [place] [facility] [address] [id number] [place] [address]- 4153 13 Dec, 2014 [facility] [place] [facility] [address] [id number] [place] [address]- 2471 27 Nov, 2014 [facility] [place] [facility] [address] [id number] [place] 6680 Nov, [facility] [place] [facility] [address] [id number] [place] [address]- 5361 Nov, [facility] [place] [facility] [address] [id number] [place] [address]- 3891 Nov, [facility] [place] [facility] [address] [id number] [place] [address]- 5052 Nov, [facility] [place] [facility] [address] [id number] [place] [address]- 8245 Nov, [facility] [place] [facility] [address] [id number] [place] 2643 Nov, [facility] [place] [facility] [address] [id number] [place] [address]- 5785 Nov, [facility] [place] [facility] [address] [id number] [place] [address]- 0573 Nov, [facility] [place] [facility] [address] [id number] [place] [address]- 8456 Nov, [facility] [place] [facility] [address] [id number] [place] [address]- 6106 Nov, [facility] [place] [facility] [address] [id number] [place] [address]- 7568 Nov, [facility] [place] [facility] [address] [id number] [place] [address]- 3881 Oct, [facility] [place] [facility] [address] [id number] [place] [address]- 6616 Oct, [facility] [place] [facility] [address] [facility] [id number] [place] [address]- 0813 Oct, [facility] [place] [facility] [address] [facility] [id number] [place] [address]- 9074 Oct, 2014 [facility] [place] [facility] [address] [facility] [id number] [place] [address]- 5513 Oct, 2014 [facility] [place] [facility] [address] [facility] [id number] [place] [address]- 3546 Oct, 2014 [facility] [place] [facility] [address] [facility] [id number] [place] [address]- 0645 Oct, [facility] [place] [facility] [address] [facility] [id number] [place] [address]- 7711 Oct, [facility] [place] [facility] [address] [facility] [id number] [place] [address]- 8848 Oct, [facility] [place] [facility] [address] [facility] [id number] [place] [address]- 5859 Sep, [facility] [place] [facility] [address] [facility] [id number] [address]- 3400 Sep, [facility] [place] [facility] [address] [facility] [id number] [address]- 7035 Sep, [facility] [place] [facility] [address] [facility] [id number] [address]- 5574 Sep, [facility] [place] [facility] [address] [facility] [id number] [address]- 3147 Sep, [facility] [place] [facility] [address] [facility] [id number] [place] [address]- 0545 Sep, [facility] [place] [facility] [address] [id number] [place] [address]- 0642 Sep, [facility] [place] [facility] [address] [id number] [place] [address]- 7109 Sep, [facility] [place] [facility] [address] [id number] [place] [address]- 6336 Sep, [facility] [place] [facility] [address] [id number] [place] [address]- 1718 Sep, [facility] [place] [facility] [address] [id number] [place] [address]- 1757 Sep, [facility] [place] [facility] [address] [id number] [place] [address]- 3358 Sep, [facility] [place] [facility] [address] [id number] [place] [address]- 1727 Sep, [facility] [place] [facility] [address] [id number] [place] [address]- 5541 Sep, [facility] [place] [facility] [address] [id number] [place] [address]- 5857 Sep, [facility] [place] [facility] [address] [id number] [place] [address]- 7241 Sep, [facility] [place] [facility] [address] [id number] [place] [address]- 1716 Aug, [facility] [place] [facility] [address] [id number] [place] [address]- 5045 Aug, [facility] [place] [facility] [address] [id number] [place] [address]- 2756 Aug, [facility] [place] [facility] [address] [id number] [place] [address]- 8531 Aug, [facility] [place] [facility] [address] [id number] [place] [address]- 3429 Aug, [facility] [place] [facility] [address] [id number] [place] [address]- 1353 Aug, [facility] [address] [id number] [place] [address]- 0003 Aug, [facility] [address] [id number] [place] [address]- 3709 Aug, [facility] [address] [id number] [place] [address]- 1745 Aug, [facility] [address] [id number] [place] [address]- 9269 Aug, [facility] [address] [id number] [place] [address]- 3097 Aug, [facility] [address] [id number] Aug, [facility] [address] [id number] [place] [address]- 9739 Aug, [facility] [address] [id number] [place] [address]- 7299 Aug, [facility] [address] [id number] [place] [address]- 4831 Aug, [facility] [address] [id number] [place] [address]- 5747 Aug, [facility] [address] [id number] [place] [address]- 1475 Aug, [facility] [address] [id number] [place] [address]- 4775 Aug, [facility] [address] [id number] [place] [address]- 5979 Aug, [facility] [address] [id number] [place] [address]- 4590 Aug, [facility] [address] [id number] [place] 8955 Aug, [facility] [address] [id number] [place] [address]- 8903 Aug, [facility] [place] [facility] [address] [id number] [place] [address]- 9927 Aug, [facility] [place] [facility] [address] [id number] [place] 8586 Aug, [facility] [place] [facility] [address] [id number] [place] [address]- 1159 Aug, [facility] [place] [facility] [address] [id number] [place] [address]- 4512 Aug, [facility] [place] [facility] [address] [id number] [place] [address]- 9974 Aug, [facility] [place] [facility] [address] [id number] [place] [address]- 4809 Aug, [facility] [place] [facility] [address] [id number] [place] [address]- 4942 Aug, [facility] [place] [facility] [address] [id number] [place] [address]- 2081 Aug, [facility] [place] [facility] [address] [id number] [place] [address]- 2981 Jul, [facility] [place] [facility] [address] [id number] [place] [address]- 8792 Jul, [facility] [place] [facility] [address] [id number] [place] [address]- 6162 Jul, [facility] [place] [facility] [address] [id number] [place] [address]- 0115 Jul, [facility] [place] [facility] [address] [id number] [place] [address]- 3729 Jul, [facility] [place] [facility] [address] [id number] [place] [address]- 7273 Jul, [facility] [place] [facility] [address] [id number] [place] [address]- 3275 Jul, [facility] [place] [facility] [address] [id number] [place] [address]- 4518 Jul, [facility] [place] [facility] [address] [id number] [place] [address]- 5879 Jul, [facility] [place] [facility] [address] [id number] [place] [address]- 0065 Jul, [facility] [place] [facility] [address] [id number] [place] [address]- 2678 Jun, [facility] [place] [facility] [address] [id number] [place] [address]- 9508 Jun, [facility] [place] [facility] [address] [id number] [place] [address]- 0558 Jun, [facility] [place] [facility] [address] [id number] [place] [address]- 2715 Jun, [facility] [place] [facility] [address] [id number] [place] [address]- 7315 Jun, [facility] [place] [facility] [address] [id number] [place] [address]- 0425 Jun, [facility] [place] [facility] [address] [id number] [place] [address]- 0258 Jun, [facility] [place] [facility] [address] [id number] [place] [address]- 3767 Jun, [facility] [place] [facility] [address] [id number] [place] [address]- 1544 Jun, [facility] [place] [facility] [address] [id number] [place] [address]- 6220 Jun, [facility] [place] [facility] [address] [id number] [place] [address]- 3393 29 May, 2014 [facility] [place] [facility] [address] [id number] [place] [address]- 8124 29 May, 2014 [facility] [place] [facility] [address] [id number] [place] [address]- 7639 May, [facility] [place] [facility] [address] [id number] [place] [address] 254 26 Sep, 2013 [facility] [place] [facility] [address] [id number] [place] [address] 2546 17 May, 2013 [facility] [place] [facility] [address] [id number] [place] [address]- 4861 17 May, 2013 [facility] [place] [facility] [address] [id number] [place] [address] 254 15 May, 2013 [facility] [place] [facility] [address] [id number] [place] [address]- 3783 15 May, 2013 [facility] [place] [facility] [address] [id number] [place] [address]- 2012 15 May, 2013 [facility] [place] [facility] [address] [id number] [place] [address]- 7206 15 May, 2013 [facility] [place] [facility] [address] [id number] [place] [address]- 5739 10 May, 2013 [facility] [place] [facility] [address] [id number] [place] [address] 2549 10 May, 2013 [facility] [place] [facility] [address] [id number] [place] [address]- 0089 09 May, 2013 [facility] [place] [facility] [address] [id number] [place] [address] 2541 09 May, 2013 [facility] [place] [facility] [address] [id number] [place] [address] 2541 04 May, 2013 [facility] [place] [facility] [address] [id number] [place] [address] 2547 May, 2013 [facility] [place] [facility] [address] [id number] [place] [address]- 0497 Apr, [facility] [place] [facility] [address] [id number] [place] [address]- 3820 Apr, [facility] [place] [facility] [address] [id number] [place] [address]- 4491 Apr, [facility] [place] [facility] [address] [id number] [place] [address]- 7750 Apr, [facility] [place] [facility] [address] [id number] [place] [address]- 0653 Apr, [facility] [place] [facility] [address] [id number] [place] [address]- 4952 Apr, [facility] [place] [facility] [address] [id number] [place] [address]- 6126 Apr, [facility] [place] [facility] [address] [id number] [place] [address]- 2626 Apr, [facility] [place] [facility] [address] [id number] [place] [address]- 6781 Apr, [facility] [place] [facility] [address] [id number] [place] [address]- 2299 Apr, [facility] [place] [facility] [address] [id number] [place] [address]- 4778 Apr, [facility] [place] [facility] [address] [id number] [place] [address]- 6445 Apr, [facility] [place] [facility] [address] [id number] [place] [address]- 4954 Apr, [facility] [place] [facility] [address] [id number] [place] [address]- 4150 Apr, [facility] [place] [facility] [address] [id number] [place] [address]- 7367 Apr, [facility] [place] [facility] [address] [id number] [place] [address]- 4348 Mar, [facility] [place] [facility] [address] [id number] [place] [address]- 9625 Mar, [facility] [place] [facility] [address] [id number] [place] [address]- 7714 Mar, [facility] [place] [facility] [address] [id number] [place] [address]- 5592 Mar, 2013 [facility] [place] [facility] [address] [id number] [place] [address]- 3908 Mar, 2013 [facility] [place] [facility] [address] [id number] [place] [address]- 9687 Mar, 2013 [facility] [place] [facility] [address] [id number] [place] [address]- 7247 Mar, 2013 [facility] [place] [facility] [address] [id number] [place] [address]- 7204 Mar, 2013 [facility] [place] [facility] [address] [id number] [place] [address]- 6794 Mar, 2013 [facility] [place] [facility] [address] [id number] [place] [address]- 2303 Mar, 2013 [facility] [place] [facility] [address] [id number] [place] [address]- 4481 Mar, 2013 [facility] [place] [facility] [address] [id number] [place] [address]- 5879 Mar, 2013 [facility] [place] [facility] [address] [id number] [place] [address]- 4924 Mar, 2013 [facility] [place] [facility] [address] [id number] [place] [address]- 3751 Mar, 2013 [facility] [place] [facility] [address] [id number] [place] [address]- 2671 Mar, 2013 [facility] [place] [facility] [address] [id number] [place] [address]- 9332 Mar, 2013 [facility] [place] [facility] [address] [id number] [place] [address]- 1040 Mar, 2013 [facility] [place] [facility] [address] [id number] [place] [address]- 0170 Mar, 2013 [facility] [place] [facility] [address] [id number] [place] [address]- 7195 Feb, [facility] [place] [facility] [address] [id number] [place] [address]- 2931 Feb, [facility] [place] [facility] [address] [id number] [place] [address]- 2263 Feb, [facility] [place] [facility] [address] [id number] [place] [address]- 6893 Feb, [facility] [place] [facility] [address] [id number] [place] [address]- 1454 Feb, [facility] [place] [facility] [address] [id number] [place] [address]- 3257 Feb, [facility] [place] [facility] [address] [id number] [place] [address]- 3417 Feb, [facility] [place] [facility] [address] [id number] [place] [address]- 4464 Feb, [facility] [place] [facility] [address] [id number] [place] [address] Feb, [facility] [place] [facility] [address] [id number] [place] [address] Feb, [facility] [place] [facility] [address] [id number] [place] [address] Feb, [facility] [place] [facility] [address] [id number], [place] [address] Feb, [facility] [place] [facility] [address] [id number], [place] [address] Feb, [facility] [place] [facility] [address] [id number] [place] [address] Feb, [facility] [place] [facility] [address] [id number] [place] [address] January, [facility] [place] [facility] [address] [id number] [place] [address] January, [facility] [place] [facility] [address] [id number] [place] [address] January, [facility] [address] [id number] [place] [address] January, [facility] [place] [facility] [address] [id number] [place] [address] January, [facility] [address] [id number] [place] [address] January, [facility] [place] [facility] [address] [id number] [place] [address] January, [facility] [place] [facility] [address] [id number] [place] [address] January, [facility] [address] [id number] [place] [address] January, [facility] [address] [id number] [place] [address] January, [facility] [address] [id number] [place] [address] January, [facility] [place] [facility] [address] [id number] [place] [address] January, [facility] [address] [id number] [place] [address]266 January, [facility] [place] [facility] [address] [id number] [place] [address] January, [facility] [place] [facility] [address] [id number] [place] [address] 47[address] Dec, [facility] [place] [facility] [address] [id number] [place] [address] Dec, [facility] [place] [facility] [address] [id number] [place] [address] Dec, [facility] [place] [facility] [address] [id number] [place] [address] Dec, [facility] [place] [facility] [address] [id number] [place] [address] 9316 Dec, [facility] [place] [facility] [address] [id number] [place] [address] Dec, [facility] [place] [facility] [address] [id number] [place] [address]37 Dec, [facility] [place] [facility] [address] [id number] [place] [address] Dec, [facility] [place] [facility] [address] [id number] [place] [address] Dec, [facility] [place] [facility] [address] [id number] [place] [address] Dec, [facility] [place] [facility] [address] [id number] [place] [address]267 Nov, [facility] [place] [facility] [address] [id number] [place] [address] Nov, [facility] [place] [facility] [address] [id number] [place] [address] Nov, [facility] [place] [facility] [address] [id number] [place] [address] Nov, [facility] [place] [facility] [address] [id number] [place] [address]147 Nov, [facility] [place] [facility] [address] [id number] [place] [address] Nov, [facility] [place] [facility] [address] [id number] [place] [address] Nov, [facility] [place] [facility] [address] [id number] [place] [address] Nov, [facility] [place] [facility] [address] [id number] [place] [address] Nov, [facility] [place] [facility] [address] [id number] [place] [address] Nov, [facility] [place] [facility] [address] [id number] [place] [address] Oct, [facility] [place] [facility] [address] [id number] [place] [address] Oct, [facility] [place] [facility] [address] [id number] [place] [address] Oct, [facility] [place] [facility] [address] [id number] [place] [address] Oct, [facility] [place] [facility] [address] [id number] [place] [address] Oct, [facility] [place] [facility] [address] [id number] [place] [address]- 47[address] Oct, [facility] [place] [facility] [address] [id number] [place] [address] 37[address] Oct, [facility] [place] [facility] [address] [id number] [place] [address] Oct, [facility] [place] [facility] [address] [id number] [place] [address] Oct, [facility] [place] [facility] [address] [facility] [id number] [place] [address] 59[address] Oct, [facility] [place] [facility] [address] [facility] [id number] [place] [address] 2546 Oct, [facility] [place] [facility] [address] [id number] [place] [address] 2546 Oct, [facility] [place] [facility] [address] [id number] [place] [address] Oct, [facility] [place] [facility] [address] [id number] [place] [address] Oct, [facility] [place] [facility] [address] [facility] [id number] [place] [address] Sep, [facility] [place] [facility] [address] [id number] [place] [address] 20 Sep, 2013 [facility] [place] [facility] [address] [address] [id number] [place] [address] 15 Sep, 2013 [facility] [place] [facility] [address] [id number] [place] [address] 15 Sep, 2013 [facility] [place] [facility] [address] [id number] [place] [address]- 7363 14 Sep, 2013 [facility] [place] [facility] [address] [id number] [place] [address]- 2287 14 Sep, 2013 [facility] [place] [facility] [address] [id number] [place] [address]- 3434 14 Sep, 2013 [facility] [place] [facility] [address] [id number] [place] [address]- 2054 Sep, [facility] [place] [facility] [address] [id number] [place] [address]- 8391 08 Sep, 2013 [facility] [place] [facility] [address] [id number] [place] [address]- 3121 Sep, [facility] [place] [facility] [address] [id number] [place] [address]- 5542 10 Aug, 2013 [facility] [place] [facility] [address] [id number], [place] [address] 0827 Aug, [facility] [place] [facility] [address] [id number], [place] [address] 95[address] Jul, [facility] [place] [facility] [address] [id number] [place] [address]- 5384 Jul, [facility] [place] [facility] [address] [id number] [place] [address]- 0491 Jul, [facility] [place] [facility] [address] [id number] [place] [address]- 5156 Jul, [facility] [place] [facility] [address] [id number] [place] [address]- 4183 13 Jul, 2013 [facility] [address] [id number] [place] [address]- 0629 13 Jul, 2013 [facility] [place] [facility] [address] [id number] [place] [address]- 7844 Jul, [facility] [place] [facility] [address] [id number] [place] [address]- 3102 Jul, [facility] [place] [facility] [address] [id number] [place] [address]- 7097 08 Jul, 2013 [facility] [place] [facility] [address] [id number] [place] [address]- 3833 Jul, [facility] [place] [facility] [address] [id number] [place] [address]- 4939 Jul, [facility] [place] [facility] [address] [id number] [place] [address]- 5122 Jul, [facility] [place] [facility] [address] [id number] [place] [address]- 1665 Jul, [facility] [place] [facility] [address] [id number] [place] [address]- 9817 Jul, [facility] [place] [facility] [address] [facility] [id number] [place] [address]- 7903 Jul, [facility] [place] [facility] [address] [id number] [place] [address]- 6124 Jul, [facility] [place] [facility] [address] [id number], [place] [address] 6095 Jul, [facility] [place] [facility] [address] [id number] [place] [address]- 5567 Jul, [facility] [place] [facility] [address] [id number] [place] [address]- 1572 Jul, [facility] [place] [facility] [address] [id number], [place] [address]- 6024 16 Jun, 2013 [facility] [place] [facility] [address] [id number] [place] [address]- 4356 16 Jun, 2012 [facility] [place] [facility] [address] [id number] [place] [address]- 5334 16 Jun, 2012 [facility] [place] [facility] [address] [id number] [place] [address]- 0406 16 Jun, 2012 [facility] [place] [facility] [address] [id number] [place] [address]- 8268 16 Jun, 2012 [facility] [place] [facility] [address] [id number] [place] [address]- 3142 16 Jun, 2012 [facility] [place] [facility] [address] [id number] [place] [address]- 7697 Jun, 2012 [facility] [place] [facility] [address] [id number] [place] [address]- 0888 10 Jun, 2012 [facility] [place] [facility] [address] [id number] [place] [address]- 7804 Jun, [facility] [place] [facility] [address] [id number] [place] [address]- 8574 09 Jun, 2013 [facility] [place] [facility] [address] [id number] [place] [address]- 9024 Jun, [facility] [place] [facility] [address] [id number] [place] [address]- 3325 26 May, 2012 [facility] [place] [facility] [address] [id number] [place] [address]- 7100 25 Sep, 2012 [facility] [place] [facility] [address] [id number] [place] [address]- 8253 19 Sep, 2012 [facility] [place] [facility] [address] [id number] [place] [address]- 1736 17 Sep, 2012 [facility] [place] [facility] [address] [id number] [place] [address]- 4973 11 Sep, 2012 [facility] [place] [facility] [address] [id number] [place] [address]- 7826 May, [facility] [place] [facility] [address] [id number] [place] [address]- 8096 May, [facility] [place] [facility] [address] [id number] [place] [address]- 6270 May, [facility] [place] [facility] [address] [id number] [place] [address]- 9566 Apr, [facility] [place] [facility] [address] [id number] [place] [address]- 4688 Apr, [facility] [place] [facility] [address] [id number] [place] [address]- 7725 Apr, [facility] [place] [facility] [address] [id number] [place] [address]- 3531 Apr, [facility] [place] [facility] [address] [id number] [place] [address]- 6814 Apr, [facility] [place] [facility] [address] [id number] [place] [address]- 3331 Mar, [facility] [place] [facility] [address] [id number] [place] [address]- 9168 Mar, [facility] [place] [facility] [address] [id number] [place] [address]- 1364 Mar, [facility] [place] [facility] [address] [id number] [place] [address]- 5602 Mar, [facility] [place] [facility] [address] [id number] [place] [address]- 6159 Mar, [facility] [place] [facility] [address] [id number] [place] [address]- 7314 Mar, [facility] [place] [facility] [address] [id number] [place] [address]- 1879 Mar, [facility] [place] [facility] [address] [id number] [place] [address]- 6817 Mar, [facility] [place] [facility] [address] [id number] [place] [address]- 6013 Feb, [facility] [address] [id number] [place] [address]- 5844 Feb, [facility] [address] [id number] [place] [address]- 7379 January, [facility] [address] [id number] [place] [address] January, [facility] [address] [id number] [place] [address]- 5088 Dec, [facility] [address] [id number] [place] [address]65 Dec, [facility] [address] [id number] [place] [address]- 1798 Nov, [facility] [address] [id number] [place] [address]- 2890 Nov, [facility] [address] [id number] [place] [address]- 4197 Nov, [facility] [address] [id number] [place] [address]- 0793 Nov, [facility] [address] [id number] [place] [address]- 7433 Oct, [facility] [address] [id number] [place] [address]- 3290 Oct, [facility] [address] [id number] [place] [address]- 7678 Oct, [facility] [place] [facility] [address] [id number] [place] [address]- 1917 Oct, [facility] [address] [id number] [place] [address]- 5496 16 Oct, 2012 [facility] [address] [id number] [place] [address]- 4033 14 Oct, 2012 [facility] [address] [id number] [place] [address]- 9274 08 Oct, 2012 [facility] [place] [facility] [address] [id number] [place] [address]- 1693 07 Oct, 2012 [facility] [place] [facility] [address] [id number] [place] [address]- 8640 03 Oct, 2012 [facility] [place] [facility] [address] [id number] [place] [address]- 8883 30 Sep, 2012 [facility] [place] [facility] [address] [id number] [place] [address]- 6806 Sep, [facility] [place] [facility] [address] [id number] [place] [address]- 9219 Sep, [facility] [address] [id number] [place] [address]- 2966 Sep, [facility] [place] [facility] [address] [id number] [place] [address]- 5321 Sep, [facility] [address] [id number] [place] [address]- 6735 Sep, [facility] [address] [id number] [place] [address]- 3797 Sep, [facility] [address] [id number] [place] [address]- 5439 Sep, [facility] [place] [facility] [address] [id number] [place] [address]- 6969 Aug, [facility] [place] [facility] [address] [id number] [place] [address]- 5766 Aug, [facility] [place] [facility] [address] [id number] [place] [address]- 7713 Aug, [facility] [place] [facility] [address] [id number] [place] [address]- 0346 Aug, [facility] [place] [facility] [address] [id number] [place] [address]- 4096 Aug, [facility] [place] [facility] [address] [id number] [place] [address]- 2556 Aug, [facility] [place] [facility] [address] [id number] [place] [address]- 0716 Aug, [facility] [place] [facility] [address] [id number] [place] [address]- 2816 Aug, [facility] [place] [facility] [address] [id number] [place] [address]- 9465 Jul, [facility] [place] [facility] [address] [id number] [place] [address], [place] [address]- 5013 Jul, [facility] [place] [facility] [address] [id number] [place] [address]- 1495 Jul, [facility] [place] [facility] [address] [id number] [place] [address]- 9209 Jul, [facility] [place] [facility] [address] [id number] [place] [address]- 4398 Jul, [facility] [place] [facility] [address] [id number] [place] [address]- 7657 Jul, [facility] [place] [facility] [address] [facility] [id number] [place] [address]- 0330 Jun, [facility] [place] [facility] [address] [id number] [place] [address]- 9684 Jun, [facility] [place] [facility] [address] [id number], [place] [address]- 2948 Jun, [facility] [place] [facility] [address] [id number] [place] [address]- 1049 Jun, [facility] [place] [facility] [address] [facility] [id number] [place] [address]- 0183 Jun, [facility] [place] [facility] [address] [id number] [place] [address]- 4700 Jun, [facility] [place] [facility] [address] [id number] [place] [address]- 6717 Jun, [facility] [place] [facility] [address] [id number] [place] [address]- 3905 Jun, [facility] [place] [facility] [address] [id number] [place] [address]- 3486 Jun, [facility] [place] [facility] [address] [id number] [place] [address]- 3575 May, [facility] [place] [facility] [address] [id number] [place] [address]- 4171 24 May, 2012 [facility] [place] [facility] [address] [id number] [place] [address]- 1745 May, [facility] [place] [facility] [address] [id number] [place] [address]- 8941 Apr, [facility] [place] [facility] [address] [id number] [place] [address]- 2132 Apr, [facility] [place] [facility] [address] [id number] [place] [address]- 6561 Apr, [facility] [place] [facility] [address] [id number] [place] [address]- 8312 Apr, [facility] [place] [facility] [address] [id number] [place] [address]- 8095 Apr, [facility] [place] [facility] [address] [id number], [place] [address]- 6330 Apr, [facility] [place] [facility] [address] [id number] [place] [address]- 2932 Mar, [facility] [place] [facility] [address] [id number] [place] [address]- 4975 Mar, [facility] [place] [facility] [address] [id number] 6662 Mar, [facility] [place] [facility] [address] [id number], [place] [address]- 4598 Mar, [facility] [address] [id number] [place] [address]- 4914 Feb, [facility] [place] [facility] [address] [id number] [place] [address]- 2945 Feb, [facility] [place] [facility] [address] [id number] [place] [address]- 0821 Feb, [facility] [place] [facility] [address] [id number] [place] [address]- 8916 Feb, [facility] [place] [facility] [address] [id number] [place] [address]- 1816 Feb, [facility] [place] [facility] [address] [id number] [place] [address]- 7603 January, [facility] [address] [id number] [place] [address]- 3152 January, [facility] [place] [facility] [address] [id number] [place] [address]- 0375 January, [facility] [address] [id number] [place] [address]- 8938 January, [facility] [place] [facility] [address] [facility] [id number] [place] [address]- 0433 January, [facility] [address] [id number] [place] [address]- 5234 January, [facility] [place] [facility] [address] [id number] [place] [address]- 7221 Dec, [facility] [place] [facility] [address] [id number] [place] [address]- 6336 Dec, [facility] [place] [facility] [address] [id number] [place] [address]- 8764 Dec, [facility] [place] [facility] [address] [id number] [place] [address]- 0823 Dec, [facility] [place] [facility] [address] [id number] [place] [address]- 5218 06 Dec, 2011 [facility] [place] [facility] [address] [id number] [place] [address]- 2468 27 Nov, 2011 [facility] [place] [facility] [address] [id number] [place] [address]- 9166 14 Nov, 2011 [facility] [place] [facility] [address] [id number] [place] [address]- 3643 12 Nov, 2011 [facility] [place] [facility] [address] [id number] [place] [address]- 5727 07 Nov, 2011 [facility] [place] [facility] [address] [id number] [place] [address]- 0507 29 Oct, 2011 [facility] [place] [facility] [address] [id number] [place] [address]- 6578 28 Oct, 2011 [facility] [place] [facility] [address] [id number] [place] [address]- 1356 24 Oct, 2011 [facility] [place] [facility] [address] [id number] [place] [address]- 7314 13 Oct, 2011 [facility] [place] [facility] [address] [id number] [place] [address]- 4300 08 Oct, 2011 [facility] [place] [facility] [address] [id number] [place] [address]- 7552 31 Sep, 2011 [facility] [place] [facility] [address] [id number] [place] [address]- 1655 30 Sep, 2011 [facility] [place] [facility] [address] [id number] [place] [address]- 0203 Sep, [facility] [place] [facility] [address] [id number] [place] [address]- 8268 Sep, [facility] [place] [facility] [address] [id number] [place] [address]- 1116 05 Sep, 2011 [facility] [place] [facility] [address] [id number], [place] [address]- 2967 Sep, [facility] [place] [facility] [address] [id number] [place] [address]- 9073 Aug, [facility] [place] [facility] [address] [id number] [place] 0646 Aug, [facility] [place] [facility] [address] [id number] [place] [address]- 2739 Aug, [facility] [place] [facility] [address] [id number] [place] [address]- 0108 Jul, [facility] [place] [facility] [address] [id number] [place] [address]- 5854 Jul, [facility] [place] [facility] [address] [id number] [place] [address]- 1311 Jul, [facility] [place] [facility] [address] [id number] [place] [address]- 6071 Jul, [facility] [place] [facility] [address] [id number] [place] [address]- 7299 Jun, [facility] [place] [facility] [address] [id number] [place] [address]- 5157 Jun, [facility] [place] [facility] [address] [id number] [place] [address]- 0393 Jun, [facility] [place] [facility] [address] [id number], [place] [address]- 1276 Jun, [facility] [place] [facility] [address] [id number] [place] [address]- 6798 Jun, [facility] [place] [facility] [address] [id number] [place] [address]- 3807 Jun, [facility] [place] [facility] [address] [id number] [place] [address]- 0564 Mar, [facility] [place] [facility] [address] [id number] [place] [address]- 7683 Dec, [facility] [place] [facility] [address] [id number] [place] [address]- 9959 11 Dec, 2010 [facility] [address] [id number] [place] [address]- 9246 18 Nov, 2010 [facility] [address] [id number] [place] [address] 2546 16 Nov, 2010 [facility] [address] [id number] [place] [address]- 1066 10 Sep, 2010 [facility] [address] [id number] [place] [address] 2542 31 Aug, 2010 [facility] [address] [id number] [place] [address]- 6446 29 Aug, 2010 [facility] [address] [id number] [place] [address]- 5146 29 Aug, 2010 [facility] [address] [id number] [place] [address] 2541 29 Aug, 2010 [facility] [address] [id number] [place] [address]- 2761 27 Aug, 2010 [facility] [address] [id number] [place] [address]- 6989 14 Aug, 2010 [facility] [address] [id number] [place] [address]- 5194 08 Aug, 2010 [facility] [address] [id number] [place] [address] 2546 08 Aug, 2010 [facility] [address] [id number] [place] [address] 2546 07 Aug, 2010 [facility] [address] [id number] [place] [address] 2546 06 Aug, 2010 [facility] [address] [id number] [place] [address] 2546 06 Aug, 2010 [facility] [address] [id number] [place] [address]- 8193 Aug, [facility] [place] [facility] [address] [id number] [place] [address]- 5979 Jul, [facility] [place] [facility] [address] [id number] [place] [address]- 4006 Jul, [facility] [place] [facility] [address] [id number] [place] [address]- 8904 Jul, [facility] [place] [facility] [address] [id number] [place] [address]- 8261 Jul, [facility] [place] [facility] [address] [id number] [place] [address]- 9933 Jul, [facility] [place] [facility] [address] [id number] [place] [address]- 1547 Jul, [facility] [place] [facility] [address] [id number] [place] [address]- 4799 Jun, [facility] [place] [facility] [address] [id number] [place] [address]- 9693 Jun, [facility] [place] [facility] [address] [id number] [place] [address]- 2827 Jun, [facility] [place] [facility] [address] [id number] [place] [address]- 2127 Jun, [facility] [place] [facility] [address] [id number] [place] [address]- 6424 Apr, [facility] [place] [facility] [address] [id number], [place] [address]- 7187 Mar, [facility] [place] [facility] [address] [id number] [place] [address]- 20[address] Feb, [facility] [place] [facility] [address] [id number] [place] [address] January, [facility] [place] [facility] [address] [id number] [place] 15 Dec, 2009 [facility] [place] [facility] [address] [id number], [place] [address] Nov, [facility] [place] [facility] [address] [id number] [place] [address] 31 Aug, 2009 [facility] [place] [facility] [address] [id number], [place] [address] Aug, [facility] [place] [facility] [address] [id number], [place] [address] Aug, [facility] [place] [facility] [address] [id number], [place] [address] Jul, [facility] [place] [facility] [address] [id number] [place] [address] Jul, [facility] [place] [facility] [address] [id number], [place] [address] Jul, [facility] [place] [facility] [address] [facility] [id number], [place] [address] 30 Jun, 2009 [facility] [place] [facility] [address] [id number], [place] [address] 29 Jun, 2009 [facility] [place] [facility] [address] [facility] [id number], [place] [address] Jun, [facility] [place] [facility] [address] [facility] [id number], [place] [address] Jun, [facility] [place] [facility] [address] [id number], [place] [address] Jun, [facility] [place] [facility] [address] [id number], [place] [address] Jun, [facility] [place] [facility] [address] [id number], [place] [address] Apr, [facility] [place] [facility] [address] [facility] [id number], [place] [address] Apr, [facility] [place] [facility] [address] [facility] [id number], [place] [address] Feb, [facility] [place] [facility] [address] [facility] [id number] [place] [id number] January, [facility] [address] [facility] [id number] [place] [id number] Dec, IMMUNIZATIONS No Known Immunizations SOCIAL HISTORY Never Assessed REASON FOR VISIT Controlled Med Refill 06/06/2017 PLAN OF CARE VITAL SIGNS MEDICATIONS Medication Instructions Dosage Frequency Start Date End Date Duration Status Percocet 10-325 MG Orally 4 times a day 1 tablet as needed 6h May, 28 days Active RESULTS No Results PROCEDURES [...] obesity Medical History skin cancer-basal cell R judaism (removed) Medical History Arthritis Medical History degenerative [...] leukemia Surgical History arthroscopic knee surgery (Right) 2003 Surgical History carpal tunnel release (Left) 2000 Surgical History EGD ([facility]) 2009 Surgical History colonoscopy 2009 ([facility]), 2013 ([place]) Surgical History heart 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 04/2014 Surgical History carotid US 05/2014 Surgical History resection of skin cancer from Right judaism Surgical History Biopsy of Lung Bilateral/Left lung lymph node 09/2016 Surgical History Bone Marrow Biopsy Surgical History port in the right chest wall 12/2016 Hospitalization History [facility] low potassium, low magnesium, chest painina 01/2015 Hospitalization History inability to urinate 09/16/15 Hospitalization History [facility] early Hospitalization History hyperkalemia 10/2017 Hospitalization History fluid in lung
--- OUTSIDE RECORDS SUMMARY | 2018-08-08 12:30 | XMS REPORT ---
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 Name Role Phone CLAUDIAYANA CURRIEA Unavailable PROBLEMS Type Condition ICD9-CM Code GND42-UG Code Onset Dates Condition Status SNOMED Code Problem Chronic lymphocytic leukemia C91.10 Active 40273551 Problem Insomnia, unspecified type G47.00 Active 259195001 Problem Lymphocytosis D72.820 Active 08729113 Problem Anxiety F41.9 Active 87243790 Problem Eye exam abnormal R93.8 Active 856903509 Problem Morbid obesity E66.01 Active 371690331 Problem Diabetic polyneuropathy associated with type 2 diabetes mellitus E11.42 Active 37537516 Problem Essential hypertension I10 Active 41536800 Problem Falling R29.6 Active 213088667 Problem 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 Active 833671180 Problem Cough R05 Active 59044815 Problem Dysuria R30.0 Active 08502191 Problem Eustachian tube dysfunction, unspecified laterality H69.80 Active 58751240 Problem Bilateral primary osteoarthritis of knee M17.0 Active 494363917 Problem Polyneuropathy associated with underlying disease G63 Active 247620466 Problem Anemia of chronic illness D63.8 Active 932694800 Problem Retinal edema H35.81 Active 7424443 Problem DM neuro manif type II E11.49 Active 54520518 Problem Diabetes E11.9 Active 80581606 Problem Hypokalemia E87.6 Active 62173269 Problem Benign prostatic hyperplasia with lower urinary tract symptoms, unspecified morphology N40.1 Active 314330137 Problem Reactive airway disease J45.909 Active 378454638065 Problem Bipolar I disorder, most recent episode (or current) mixed, moderate F31.62 Active 22916569 Problem Chronic pain G89.29 Active 67894723 Problem Leukocytosis D72.829 Active 498453309 ALLERGIES No Information ENCOUNTERS Encounter Location Date Diagnosis [facility] [id number] [address] Apr, [facility] [address] [place] [address] Mar, [facility] [address] [place] [address] Mar, [facility] [address] [place] [address] Mar, [facility] [address] [place] [address] Mar, Bipolar I disorder, most recent episode (or current) mixed, moderate F31.62 [facility] [address], [place] [address] Feb, Bipolar I disorder, most recent episode (or current) mixed, moderate F31.62 [facility] [address], [place] [address] Feb, Chronic pain G89.29 [facility] [address], [place] [address] Feb, Decubitus ulcer of right foot, stage 3 L89.893 and BMI 50.0- 59.9, adult Z68.43 [facility] [address], [place] [address] Feb, Bipolar I disorder, most recent episode (or current) mixed, moderate F31.62 [facility] [address], [place] [address] Feb, [facility] [address] [place] [address] January, [facility] [address] [place] [address] January, Chronic pain G89.29 [facility] [address], [place] [address] 8[address] January, Bipolar I disorder, most recent episode (or current) mixed, moderate F31.62 [facility] [id number] [place] [address] 69869- 5274 January, Bipolar I disorder, most recent episode (or current) mixed, moderate F31.62 [facility] [id number] [place] [address] 79303- 6124 Dec, Bipolar I disorder, most recent episode (or current) mixed, moderate F31.62 and BMI 50.0-59.9, adult Z68.43 [facility] [id number] [place] [address] 78830- 7391 Dec, Bipolar I disorder, most recent episode (or current) mixed, moderate F31.62 [facility] [id number] [place] [address] 28283- 8394 Dec, Chronic pain G89.29 [facility] [address] 24411- 3147 Dec, DM neuro manif type II E11.49 ; Right flank pain R10.9 ; intermediate 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 Z79.891 ; Encounter for medication monitoring Z51.81 and BMI 50.0-59.9, adult Z68.43 [facility] [id number] [place] [address] 79485- 0878 Dec, Bipolar I disorder, most recent episode (or current) mixed, moderate F31.62 [facility] [id number] [place] [address] 90050- 7805 Nov, Bipolar I disorder, most recent episode (or current) mixed, moderate F31.62 [facility] [id number] [place] [address] 85172- 2814 Nov, Chronic pain G89.29 [facility] [id number] [place] [address] 77073- 6918 Nov, Bipolar I disorder, most recent episode (or current) mixed, moderate F31.62 [facility] [id number] [place] [address] 03649- 3603 Nov, Hypokalemia E87.6 [facility] [address] [place] [address]- 2946 Nov, Bipolar I disorder, most recent episode (or current) mixed, moderate F31.62 [facility] [address] 143094- 6919 Oct, Chronic pain G89.29 [facility] [address] 412768- 3933 Oct, BMI 50.0-59.9, adult Z68.43 and Bipolar I disorder, most recent episode (or current) mixed, moderate F31.62 [facility] [address] 12290- 7666 Oct, Bipolar I disorder, most recent episode (or current) mixed, moderate F31.62 [facility] [address] 53343- 3340 Oct, [facility] [address] 53868- 6861 Oct, Hypokalemia E87.6 [place] [place] [address] 32200- 5784 Oct, DM neuro manif type II E11.49 [facility] [place] [address] 32513- 1224 Oct, Bipolar I disorder, most recent episode (or current) mixed, moderate F31.62 [facility] [address] 28176- 7493 Oct, Bipolar I disorder, most recent episode (or current) mixed, moderate F31.62 [facility] [address] 56467- 4655 14 Oct, 2017 Hyperkalemia E87.5 ; Falling R29.6 ; BMI 50.0-59.9, adult Z68.43 and Acute left ankle pain M25.572 [place] [address] 81875- 9451 08 Oct, 2017 DM neuro manif type II E11.49 [place] [address] 15583- 1165 Oct, [place] [address] 01485- 8722 Sep, Chronic pain G89.29 [place] [address] 39929- 1701 Sep, [place] [address] 02773- 4805 Sep, Bilateral primary osteoarthritis of knee M17.[address] 85478- 8987 Sep, Generalized edema R60.1 [facility] [id number] [place] [address] 80577- 4296 Sep, Bipolar I disorder, most recent episode (or current) mixed, moderate F31.62 [facility] [id number] [place] [address] 25507- 2379 Sep, Hypoxia R09.02 ; Other hypervolemia E87.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 ; Anemia of chronic illness D63.8 and BMI 50.0- 59.9, adult Z68.43 [place] [address] 92256- 0871 Sep, [place] [address] 52316- 4155 Sep, Bipolar I disorder, most recent episode (or current) mixed, moderate F31.[address] [place] [id number] [place] [address] 87908- 9924 Aug, Chronic pain G89.29 [facility] [id number] [place] [address] 29861- 9058 Aug, Generalized edema R60.1 [facility] [id number] [place] [address] 59693- 6976 18 Aug, 2017 [facility] [id number] [place] [address] 699347- 3793 18 Aug, 2017 [facility] [id number] [place] [address] 54859- 3148 14 Aug, 2017 Bipolar I disorder, most recent episode (or current) mixed, moderate F31.62 [facility] [id number] [place] [address] 24050- 3873 07 Aug, 2017 Bipolar I disorder, most recent episode (or current) mixed, moderate F31.62 [facility] [id number] [place] [address] 28856- 9520 04 Aug, 2017 Chronic pain G89.29 [facility] [id number] [place] [address] 449529- 4442 30 Jul, 2017 Bipolar I disorder, most recent episode (or current) mixed, moderate F31.62 [facility] [place] [id number] [place] [address] 07475- 5442 Jul, Bipolar I disorder, most recent episode (or current) mixed, moderate F31.62 and BMI 60.0-69.9, adult Z68.44 [facility] [id number] [place] [address] 04697- 3235 16 Jul, 2017 Bipolar I disorder, most recent episode (or current) mixed, moderate F31.62 [facility] [id number] [place] [address] 26131- 5002 06 Jul, 2017 Chronic pain G89.29 [facility] [id number] [place] [address] 13755- 2899 Jul, Bipolar I disorder, most recent episode (or current) mixed, moderate F31.62 [facility] [id number] [place] [address] 24133- 2188 Jun, Polyneuropathy associated with underlying disease G63 and Diabetes E11.9 [facility] [id number] [place] [address] 19729- 4183 16 Jun, 2017 Bipolar I disorder, most recent episode (or current) mixed, moderate F31.62 [facility] [id number] [place] [address] 72960- 7240 Jun, Chronic pain G89.29 [facility] [id number] [place] [address] 68599- 3356 May, Bipolar I disorder, most recent episode (or current) mixed, moderate F31.62 [facility] [id number] [place] [address] 38876- 4560 May, Bipolar I disorder, most recent episode (or current) mixed, moderate F31.62 [facility] [address] [place] [address] 58213- 7076 20 May, 2017 Diabetic polyneuropathy associated with type 2 diabetes mellitus E11.42 [facility] [address], [place] [address]- 7116 18 May, 2017 Bipolar I disorder, most recent episode (or current) mixed, moderate F31.62 [facility] [address], [place] [address]- 6416 13 May, 2017 Bipolar I disorder, most recent episode (or current) mixed, moderate F31.62 [facility] [address] [place] [address] 24358- 0815 May, Chronic pain G89.29 [facility] [id number] [place] [address] 51614- 6175 Apr, Bipolar I disorder, most recent episode (or current) mixed, moderate F31.62 [facility] [id number] [place] [address] 19082- 5140 Apr, [facility] [id number] [place] [address] 98898- 8370 Apr, Chronic pain G89.29 and DM neuro manif type II E11.49 [facility] [id number] [place] [address] 23426- 2099 Apr, [facility] [id number] [place] [address] 72120- 6804 Apr, Bipolar I disorder, most recent episode (or current) mixed, moderate F31.62 [facility] [id number] [place] [address] 82744- 8284 Apr, Chronic pain G89.29 [facility] [id number] [place] [address] 90423- 2609 Apr, Iliotibial band syndrome, left M76.32 [facility] [id number] [place] [address] 67352- 5974 Apr, Bipolar I disorder, most recent episode (or current) mixed, moderate F31.62 [facility] [id number] [place] [address] 11376- 1787 Mar, Bipolar I disorder, most recent episode (or current) mixed, moderate F31.62 [facility] [id number] [place] [address] 07663- 8203 Mar, Bipolar I disorder, most recent episode (or current) mixed, moderate F31.62 [facility] [id number] [place] [address] 94770- 7481 Mar, [facility] [id number] [place] [address] 39982- 0536 Mar, Bipolar I disorder, most recent episode (or current) mixed, moderate F31.62 [facility] [id number] [place] [address] 37162- 3526 Mar, Chronic pain G89.29 [facility] [address], [place] [address]- 1911 Mar, Bipolar I disorder, most recent episode (or current) mixed, moderate F31.62 [facility] [address], [place] [address]- 5671 Mar, Bipolar I disorder, most recent episode (or current) mixed, moderate F31.62 [facility] [id number] [place] [address] 26602- 8516 Mar, Acute pain of left knee M25.562 ; Left hip pain M25.552 ; Generalized edema R60.1 and Tongue swelling R22.0 [facility] [id number] [place] [address] 35936- 0362 Mar, [facility] [id number] [place] [address] 64905- 0368 Feb, Chronic pain G89.29 [facility] [id number] [place] [address] 65604- 6427 Feb, Diabetes E11.9 [facility] [id number] [place] [address] 04755- 0269 January, Chronic pain G89.29 [facility] [address] [place] [address] 01667- 7693 January, [facility] [id number] [place] [address] 95365- 9259 January, Bipolar I disorder, most recent episode (or current) mixed, moderate F31.62 [facility] [id number] [place] [address] 57440- 0339 Dec, Bipolar I disorder, most recent episode (or current) mixed, moderate F31.62 [facility] [id number] [place] [address] 48079- 9502 Dec, Chronic pain G89.29 [facility] [id number] [address]- 6176 Dec, Bipolar I disorder, most recent episode (or current) mixed, moderate F31.62 [facility] [id number] [place] [address] 01565- 0368 Dec, Diabetes E11.9 ; Essential hypertension I10 ; Chronic pain G89.29 and Morbid obesity E66.01 [facility] [id number] [place] [address] 97559- 2122 Dec, [facility] [id number] [place] [address] 46621- 0290 Dec, Bipolar I disorder, most recent episode (or current) mixed, moderate F31.62 [place] [id number] [place] [address] 78040- 4348 Dec, Bipolar I disorder, most recent episode (or current) mixed, moderate F31.62 [facility] [id number] [place] [address] 99585- 5573 Nov, Chronic pain G89.29 [facility] [id number] [place] [address] 70863- 3133 Nov, Bipolar I disorder, most recent episode (or current) mixed, moderate F31.62 [place] [place] [address], [place] [address]- 2869 Nov, [facility] [id number] [place] [address] 70930- 1291 Nov, Bipolar I disorder, most recent episode (or current) mixed, moderate F31.62 [facility] [address], [place] [address]- 6718 Nov, Bipolar I disorder, most recent episode (or current) mixed, moderate F31.62 [facility] [address], [place] [address]- 8953 Nov, [facility] [id number] [place] [address] 05715- 3890 Nov, [facility] [address], [place] [address]- 3628 Nov, [facility] [address] [place] [address] 97915- 0777 Oct, Chronic pain G89.29 [facility] [address] [place] [address] 90970- 3536 Oct, Bipolar I disorder, most recent episode (or current) mixed, moderate F31.62 [facility] [address] [place] [address] 91489- 9607 Oct, [facility] [id number] [place] [address] 30421- 9658 Oct, Chronic pain G89.29 ; Diabetes E11.9 ; Anxiety F41.9 and 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 [facility] [address] [place] [address] 22042- 7337 Oct, [facility] [address] [place] [address] 96536- 1616 Oct, Diabetes E11.9 [facility] [address] [place] [address] 20168- 0664 Oct, Bipolar I disorder, most recent episode (or current) mixed, moderate F31.62 [facility] [address], [place] [address]- 3978 Sep, Chronic pain G89.29 [facility] [address], [place] [address]- 8993 Sep, Chronic pain G89.29 [facility] [address] [place] [address] 81734- 2516 Aug, Chronic pain G89.29 [facility] [address], [place] [address]- 3008 Jul, [facility] [id number] [place] [address] 71669- 5522 Jul, Diabetes E11.9 [facility] [place] [id number] [place] [address] 53691- 4699 Jul, Chronic pain G89.29 [place] [id number] [place] [address] 41355- 4398 Jul, Bipolar I disorder, most recent episode (or current) mixed, moderate F31.62 [facility] [id number] [place] [address] 26423- 0938 Jun, Bipolar I disorder, most recent episode (or current) mixed, moderate F31.62 [facility] [id number] [place] [address] 96303- 5359 Jun, [place] [place] [id number] [place] [address] 09711- 6624 Jun, Bipolar I disorder, most recent episode (or current) mixed, moderate F31.62 [facility] [id number] [place] [address] 49412- 8409 30 May, 2016 Insomnia, unspecified type G47.00 [facility] [id number] [place] [address] 18662- 6764 May, Bipolar I disorder, most recent episode (or current) mixed, moderate F31.62 [facility] [id number] [place] [address] 18428- 9023 14 May, 2016 [facility] [id number] [place] [address] 93649- 7009 08 May, 2016 Bipolar I disorder, most recent episode (or current) mixed, moderate F31.62 [facility] [id number] [place] [address] 06866- 3371 06 May, 2016 Diabetes E11.9 and Essential hypertension I10 [place] [id number] [place] [address] 21725- 9688 Apr, Chronic pain G89.29 [facility] [address], [place] [address]- 0293 Apr, Bipolar I disorder, most recent episode (or current) mixed, moderate F31.62 [facility] [address] [place] [address] 30011- 4666 Apr, [facility] [id number] [place] [address] 98042- 1379 Apr, [place] [id number] [place] [address] 54657- 1278 Mar, Chronic pain G89.29 ; Headache, unspecified headache type R51 ; Neuropathy G62.9 ; Pain of right hip joint M25.551 and Essential hypertension I10 [place] [id number] [place] [address] 16775- 2350 Mar, Chronic pain G89.29 [facility] [id number] [place] [address] 08838- 7402 Mar, Bipolar I disorder, most recent episode (or current) mixed, moderate F31.62 [facility] [id number] [place] [address] 57168- 2717 Feb, Bipolar I disorder, most recent episode (or current) mixed, moderate F31.62 and Insomnia, unspecified type G47.00 [place] [place] [id number] [place] [address] 20885- 6521 Feb, Chronic pain G89.29 [facility] [place] [id number] [place] [address] 02181- 1955 Feb, Bipolar I disorder, most recent episode (or current) mixed, moderate F31.62 [facility] [id number] [place] [address] 41762- 7368 January, Bipolar I disorder, most recent episode (or current) mixed, moderate F31.62 [facility] [id number] [place] [address] 38596- 6144 January, Chronic pain G89.29 [facility] [id number] [place] [address] 92056- 5648 January, Chronic pain G89.29 and Essential hypertension I10 [facility] [id number] [place] [address] 18043- 8347 January, Bipolar I disorder, most recent episode (or current) mixed, moderate F31.62 [facility] [id number] [place] [address] 71613- 4830 Dec, [facility] [id number] [place] [address] 93253- 8090 Dec, [facility] [id number] [place] [address] 11284- 3760 Dec, [facility] [address] 58147- 1135 Dec, [facility] [id number] [place] [address] 37912- 6767 Nov, Reactive airway disease J45.909 [facility] [id number] [place] [address] 27127- 2617 Nov, [facility] [id number] [place] [address] 92541- 1659 Nov, [facility] [id number] [place] [address] 20298- 6035 Nov, [facility] [id number] [place] [address] 85241- 6896 Nov, [facility] [id number] [place] [address] 29662- 2901 Nov, Onychomycosis B35.1 ; Hammertoe M20.40 ; [place] or callus L84 and DM neuro manif type II E11.49 [facility] [id number] [place] [address] 27445- 7160 Nov, Chronic pain G89.29 ; Leukocytosis D72.829 and Diabetes E11.9 [facility] [id number] [place] [address] 99725- 2601 Nov, [place] [address] [address] Oct, Bronchitis J40 [place] [address] [address] Oct, [place] [address] [address] Oct, [place] [address] [address] Oct, Mastoiditis, unspecified laterality H70.90 and Type 2 diabetes mellitus with complication E11.8 [place] [address] [address]- [address] Sep, [place] [address] [address]- [address] Sep, Dysuria R30.0 ; Cough R05 ; Benign prostatic hyperplasia with lower urinary tract symptoms, unspecified morphology N40.1 ; Hypokalemia E87.6 and Eustachian tube dysfunction, unspecified laterality H69.80 [place] [id number] [place] [address] 65[address]- [address]30 Sep, Moderate mixed bipolar I disorder F31.62 [place] [id number] [place] [address] 56[address]- [address] Sep, Hypokalemia E87.6 [place] [address] [id number] [place] [address] 58489- 6673 Sep, [place] [id number] [place] [address] 48493- 7154 Sep, Upper respiratory tract infection, unspecified type J06.9 [place] [id number] [place] [address] 24095- 5118 Aug, [facility] [id number] [address] 8465 Aug, Dysuria R30.0 [facility] [id number] [place] [address] 336361- 0946 Aug, [facility] [id number] [place] [address] 81213- 1790 Jul, [facility] [id number] [place] [address] 69167- 9181 Jul, [facility] [id number] [place] [address] 936527- 0728 Jul, [facility] [id number] [place] [address] 93463- 9789 Jul, [facility] [id number] [place] [address] 95177- 3045 Jun, [facility] [id number] [place] [address] 26134- 5235 Jun, [facility] [id number] [place] [address] 421548- 6699 Jun, [facility] [id number] [place] [address] 58415- 7956 May, [facility] [id number] [place] [address] 68119- 4275 May, Bipolar I disorder, most recent episode (or current) mixed, moderate 296.62 [facility] [id number] [place] [address] 21440- 9217 16 May, 2015 [facility] [id number] [place] [address] 379506- 0636 May, Bipolar I disorder, most recent episode (or current) mixed, moderate 296.62 and Major depressive disorder, recurrent episode, severe, specified as with psychotic behavior 296.34 [facility] [id number] [place] [address] 56665- 8299 May, Bipolar I disorder, most recent episode (or current) mixed, moderate 296.62 [facility] [id number] [place] [address] 45642- 1471 May, [facility] [id number] [place] [address] 93965- 4972 Apr, [facility] [id number] [place] [address] 33044- 6186 Apr, [facility] [id number] [place] [address] 12743- 4192 Apr, Unspecified disorder of kidney and ureter 593.9 and Diabetes mellitus type 2, uncontrolled 250.02 [facility] [id number] [place] [address] 10230- 6102 Apr, [facility] [id number] [place] [address] 62750- 8744 Apr, [facility] [id number] [place] [address] 59432- 6822 Apr, [facility] [id number] [place] [address] 63863- 5305 Apr, [facility] [id number] [place] [address] 68845- 1740 Apr, Diabetes mellitus type II, uncontrolled 250.02 [facility] [id number] [place] [address] 55735- 8645 Apr, [facility] [id number] [place] [address] 62234- 5602 Mar, [facility] [id number] [place] [address] 40815- 5329 Mar, [facility] [id number] [place] [address] 47189- 5253 Mar, [facility] [id number] [place] [address] 12137- 1561 Mar, Major depressive disorder, recurrent episode, severe, specified as with psychotic behavior 296.34 and Bipolar I disorder, most recent episode (or current) mixed, moderate 296.62 [facility] [id number] [place] [address] 79126- 5252 Mar, Diabetes 250.00 ; Anuria 788.5 ; Nausea and vomiting 787.01 and Diarrhea 787.91 [facility] [id number] [place] [address] 20758- 6308 Mar, Diabetes 250.00 [facility] [id number] [place] [address] 98770- 3451 Mar, [facility] [id number] [place] [address] 44790- 0432 Mar, Diabetes 250.00 [facility] [id number] [place] [address] 63083- 0387 Mar, [facility] [id number] [place] [address] 33985- 9718 Mar, [facility] [id number] [place] [address] 46188- 6585 Mar, [facility] [id number] [place] [address] 25579- 3468 Mar, [facility] [address] [place] [address] 80325- 8476 Mar, Bipolar I disorder, most recent episode (or current) mixed, moderate 296.62 and Major depressive disorder, recurrent episode, severe, specified as with psychotic behavior 296.34 [facility] [address] [place] [address] 20149- 9109 Mar, Magnesium deficiency 275.2 ; Hypokalemia 276.8 ; Nausea & vomiting 787.01 and Diabetes mellitus type 2, uncontrolled 250.02 [facility] [address] [address]- 8807 Feb, [facility] [id number] [place] [address] 50380- 3008 Feb, Bipolar I disorder, most recent episode (or current) mixed, moderate 296.62 [facility] [id number] [place] [address] 52918- 5121 Feb, Nausea and vomiting 787.01 ; Left elbow pain 719.42 ; Anuria 788.5 and Diabetes 250.00 [facility] [id number] [place] [address] 05791- 3894 Feb, [facility] [id number] [place] [address] 71329- 4097 Feb, Hypopotassemia 276.8 and Hypokalemia 276.8 [place] [id number] [place] [address] 29880- 5356 Feb, Hypopotassemia 276.8 and Hypokalemia 276.8 [place] [id number] [place] [address] 63821- 9561 Feb, Seborrheic keratoses 702.19 [place] [id number] [place] [address] 24049- 4296 Feb, Hypopotassemia 276.8 and Low magnesium levels 275.2 [place] [id number] [place] [address] 46610- 6522 January, [facility] [id number] [place] [address] 77656- 4749 January, [facility] [id number] [place] [address] 72504- 3998 January, [facility] [id number] [place] [address] 38450- 6912 January, Scalp lesion 709.9 [facility] [id number] [place] [address] 19911- 6384 January, [facility] [id number] [place] [address] 01943- 2666 30 Dec, 2014 Tear of medial cartilage or meniscus of knee, current 836.0 and 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 [facility] [address] [id number], [place] [address]- 8666 Dec, [facility] [address] [facility] [id number], [place] [address]- 8136 Dec, [facility] [address] [facility] [id number], [place] [address]- 2440 Dec, Squamous cell carcinoma, 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 [facility] [address] [facility] [id number], [place] [address]- 9066 14 Dec, 2014 [facility] [address] [facility] [id number], [place] [address]- 6007 Dec, [facility] [id number], [place] [address]- 0954 Nov, [facility] [address] [facility] [id number], [place] [address]- 8383 Nov, [facility] [address] [facility] [id number], [place] [address]- 1384 Nov, [facility] [address] [facility] [id number], [place] [address]- 5259 Nov, [facility] [address] [id number], [place] [address]- 4732 Nov, [facility] [address] [facility] [id number], [place] [address]- 5578 Nov, [facility] [address] [facility] [id number] 4226 Nov, [facility] [address] [facility] [id number]- 4758 Nov, [facility] [address] [facility] [id number][place]- 3856 Nov, [facility] [address] [facility] [id number] [place] [address]- 4694 Nov, [facility] [place] [facility] [address] [id number] [place] [address]- 2869 Nov, [facility] [place] [facility] [address] [id number] [place] [address]- 2779 Nov, [facility] [place] [facility] [address] [id number] [place] [address]- 2554 Oct, 2014 [facility] [place] [facility] [address] [id number] [place] [address]- 2017 Oct, 2014 [facility] [place] [facility] [address] [id number] [place] [address]- 0135 Oct, 2014 [facility] [place] [facility] [address] [facility] [id number] [place] [address]- 9283 Oct, 2014 [facility] [place] [facility] [address] [id number] [place] [address]- 0544 Oct, 2014 [facility] [place] [facility] [address] [id number] [place] [address]- 4250 Oct, 2014 [facility] [place] [facility] [address] [facility] [id number] [place] [address]- 4873 Oct, [facility] [place] [facility] [address] [facility] [id number] [place] [address]- 6556 Oct, [facility] [place] [facility] [address] [facility] [id number], [place] [address]- 2327 Oct, [facility] [place] [facility] [address] [facility] [id number] [place] [address]- 4439 Sep, [facility] [place] [facility] [address] [id number] [place] [address]- 9616 Sep, [facility] [place] [facility] [address] [facility] [id number] [place] [address]- 1531 Sep, [facility] [place] [facility] [address] [facility] [id number], [place] [address]- 9736 Sep, [facility] [place] [facility] [address] [id number] [place] [address]- 6662 Sep, [facility] [place] [facility] [address] [id number] [place] [address]- 3146 Sep, [facility] [place] [facility] [address] [id number] [place] [address]- 2122 Sep, [facility] [place] [facility] [address] [id number] [place] [address]- 0723 Sep, [facility] [place] [facility] [address] [id number] [place] [address]- 7443 Sep, [facility] [place] [facility] [address] [id number] [place] [address]- 3296 Sep, [facility] [place] [facility] [address] [id number] [place] [address]- 8681 Sep, [facility] [place] [facility] [address] [id number] [place] [address]- 0173 Sep, [facility] [place] [facility] [address] [id number] [place] [address]- 8007 Sep, [facility] [place] [facility] [address] [id number] [place] [address]- 6479 Sep, [facility] [place] [facility] [address] [id number] [place] [address]- 2773 Sep, [facility] [place] [facility] [address] [id number], [place] [address]- 1481 Sep, [facility] [place] [facility] [address] [id number] [place] [address]- 1763 Aug, [facility] [place] [facility] [address] [id number] [place] [address]- 3970 Aug, [facility] [place] [facility] [address] [id number] [place] [address]- 5580 Aug, [facility] [place] [facility] [address] [id number] [place] [address]- 9141 Aug, [facility] [address] [id number] [place] [address]- 1579 Aug, [facility] [address] [id number] [place] [address]- 0069 Aug, [facility] [address] [id number] [place] [address]- 7447 Aug, [facility] [address] [id number] [place] [address]- 1832 Aug, [facility] [address] [id number] [place] [address]- 3068 Aug, [facility] [address] [id number] [place] [address]- 2902 Aug, [facility] [address] [id number] [place] [address]- 6779 Aug, [facility] [place] [id number] Aug, [facility] [address] [id number] [place] [address]- 3081 Aug, [facility] [address] [id number] [place] [address]- 7191 Aug, [facility] [address] [id number] [place] [address]- 2613 Aug, [facility] [address] [id number] [place] [address]- 9152 Aug, [facility] [address] [id number] [place] [address]- 6928 Aug, [facility] [address] [id number] [place] [address]- 5780 Aug, [facility] [address] [id number] [place] [address]- 2805 Aug, [facility] [place] [facility] [address] [id number] [place] [address]- 8091 08 Aug, 2014 [facility] [place] [facility] [address] [id number] [place] [address]- 2437 Aug, [facility] [place] [facility] [address] [id number] [place] [address]- 7650 Aug, [facility] [place] [facility] [address] [id number] [place] [address]- 8553 Aug, [facility] [place] [facility] [address] [id number] [place] [address]- 8528 Aug, [facility] [place] [facility] [address] [id number] [place] [address]- 4882 Aug, [facility] [place] [facility] [address] [id number] [place] [address]- 5763 Aug, [facility] [place] [facility] [address] [id number] [place] [address]- 0671 Aug, [facility] [place] [facility] [address] [id number] [place] [address]- 2124 Aug, [facility] [place] [facility] [address] [id number] [place] [address]- 5889 Aug, [facility] [place] [facility] [address] [id number] [place] [address]- 8966 Aug, [facility] [place] [facility] [address] [id number] [place] [address]- 4936 Jul, [facility] [place] [facility] [address] [id number] [place] [address]- 8572 Jul, [facility] [place] [facility] [address] [id number] [place] [address]- 6145 Jul, [facility] [place] [facility] [address] [id number] [place] [address]- 8703 Jul, [facility] [place] [facility] [address] [id number] [place] [address]- 9468 Jul, [facility] [place] [facility] [address] [id number] [place] [address]- 2466 Jul, [facility] [place] [facility] [address] [id number] [place] [address]- 8595 Jul, [facility] [place] [facility] [address] [id number] [place] 9487 Jul, [facility] [place] [facility] [address] [id number] [place] [address]- 1196 Jul, [facility] [place] [facility] [address] [id number] [place] [address]- 9249 Jul, [facility] [place] [facility] [address] [id number] [place] [address]- 1739 Jun, [facility] [place] [facility] [address] [id number] [place] [address]- 9443 Jun, [facility] [place] [facility] [address] [id number], [place] [address]- 5212 Jun, [facility] [place] [facility] [address] [id number], [place] [address]- 4817 Jun, [facility] [place] [facility] [address] [id number], [place] [address]- 0493 Jun, [facility] [place] [facility] [address] [id number], [place] [address]- 9339 Jun, [facility] [place] [facility] [address] [id number], [place] [address]- 5360 Jun, [facility] [place] [facility] [address] [id number], [place] [address]- 1993 Jun, [facility] [place] [facility] [address] [id number][place] 8951 Jun, [facility] [place] [facility] [address] [id number][place] 0601 Jun, [facility] [place] [facility] [address] [id number] [place] [address] 2546 29 Sep, 2013 [facility] [place] [facility] [address] [id number] [place] [address] 2546 29 Sep, 2013 [facility] [place] [facility] [address] [id number] [place] [address] 2546 26 Sep, 2013 [facility] [place] [facility] [address] [id number] [place] [address] 2546 26 Sep, 2013 [facility] [place] [facility] [address] [id number] [place] [address] 2546 17 Sep, 2013 [facility] [place] [facility] [address] [id number] [place] [address] 2546 17 Sep, 2013 [facility] [place] [facility] [address] [id number] [place] [address] 2546 15 Sep, 2013 [facility] [place] [facility] [address] [id number] [place] [address] 2541 15 Sep, 2013 [facility] [place] [facility] [address] [id number] [place] [address] 2544 15 Sep, 2013 [facility] [place] [facility] [address] [id number] [place] [address] 2546 15 Sep, 2013 [facility] [place] [facility] [address] [id number] [place] [address] 2541 10 Sep, 2013 [facility] [place] [facility] [address] [id number] [place] [address] 2546 10 Sep, 2013 [facility] [place] [facility] [address] [id number] [place] [address] 2546 09 Sep, 2013 [facility] [place] [facility] [address] [id number] [place] [address] 2546 09 Sep, 2013 [facility] [place] [facility] [address] [id number] [place] [address] 2546 04 Sep, 2013 [facility] [place] [facility] [address] [id number] [place] [address] 2544 May, [facility] [place] [facility] [address] [id number] [place] [address]- 8949 Apr, [facility] [place] [facility] [address] [id number] [place] [address]- 3346 Apr, [facility] [place] [facility] [address] [id number] [place] [address]- 0599 Apr, [facility] [place] [facility] [address] [id number] [place] [address]- 4731 Apr, [facility] [place] [facility] [address] [id number] [place] [address]- 8518 Apr, [facility] [place] [facility] [address] [id number] [place] [address]- 7081 Apr, [facility] [place] [facility] [address] [id number] [place] [address]- 4630 Apr, [facility] [place] [facility] [address] [id number] [place] [address]- 8778 Apr, [facility] [place] [facility] [address] [id number] [place] [address]- 4351 Apr, [facility] [place] [facility] [address] [id number] [place] [address]- 4750 Apr, [facility] [place] [facility] [address] [id number] [place] [address]- 8294 Apr, [facility] [place] [facility] [address] [id number] [place] [address]- 2328 Apr, [facility] [place] [facility] [address] [id number] [place] [address]- 1838 Apr, [facility] [place] [facility] [address] [id number] [place] [address]- 0231 Apr, [facility] [place] [facility] [address] [id number] [place] [address]- 5730 Apr, [facility] [place] [facility] [address] [id number] [place] [address]- 8123 Mar, 2013 [facility] [place] [facility] [address] [id number] [place] [address] Mar, 2013 [facility] [place] [facility] [address] [id number] [place] [address] Mar, 2013 [facility] [place] [facility] [address] [id number] [place] [address] Mar, 2013 [facility] [place] [facility] [address] [id number] [place] [address] Mar, 2013 [facility] [place] [facility] [address] [id number] [place] [address] Mar, 2013 [facility] [place] [facility] [address] [id number] [place] [address] Mar, [facility] [place] [facility] [address] [id number] [place] [address] Mar, 2013 [facility] [place] [facility] [address] [id number] [place] [address] Mar, [facility] [place] [facility] [address] [id number] [place] [address] Mar, 2013 [facility] [place] [facility] [address] [id number] [place] [address] Mar, 2013 [facility] [place] [facility] [address] [id number] [place] [address] Mar, 2013 [facility] [place] [facility] [address] [id number] [place] [address] Mar, 2013 [facility] [place] [facility] [address] [id number] [place] [address] Mar, 2013 [facility] [place] [facility] [address] [id number] [place] [address] Mar, 2013 [facility] [place] [facility] [address] [id number] [place] [address]- [address] Mar, 2013 [facility] [place] [facility] [address] [id number] [place] [address] Mar, [facility] [place] [facility] [address] [id number] [place] [address] Mar, [facility] [place] [facility] [address] [id number] [place] [address] Feb, [facility] [place] [facility] [address] [id number] [place] [address]- [address] Feb, [facility] [place] [facility] [address] [id number] [place] [address]- [address] Feb, [facility] [place] [facility] [address] [id number] [place] [address] 78[address] Feb, [facility] [place] [facility] [address] [id number] [place] [address]- [address] Feb, [facility] [place] [facility] [address] [id number] [place] [address]- 40[address] Feb, [facility] [place] [facility] [address] [id number] [place] [address] Feb, [facility] [place] [facility] [address] [id number] [place] [address]- [address] Feb, [facility] [place] [facility] [address] [id number] [place] [address] Feb, [facility] [place] [facility] [address] [id number] [place] [address] Feb, [facility] [place] [facility] [address] [id number] [place] [address] Feb, [facility] [place] [facility] [address] [id number] [place] [address]- 5868 Feb, [facility] [place] [facility] [address] [id number] [place] [address]- [address] Feb, [facility] [place] [facility] [address] [id number] [place] [address]- [address] Feb, [facility] [address] [id number] [place] [address] January, [facility] [place] [facility] [address] [id number] [place] [address]- 2006 January, [facility] [place] [facility] [address] [id number] [place] [address] January, [facility] [place] [facility] [address] [id number] [place] [address] 76[address] January, [facility] [place] [facility] [address] [id number] [place] [address]- [address] January, [facility] [place] [facility] [address] [id number] [place] [address]- [address] January, [facility] [place] [facility] [address] [id number] [place] [address]- 15[address] January, [facility] [place] [facility] [address] [id number] [place] [address]- [address] January, [facility] [place] [facility] [address] [id number] [place] [address] January, [facility] [place] [facility] [address] [id number] [place] [address]- [address] January, [facility] [place] [facility] [address] [id number] [place] [address] January, [facility] [place] [facility] [address] [id number] [place] [address]- [address] January, [facility] [place] [facility] [address] [id number] [place] [address] January, [facility] [place] [facility] [address] [id number] [place] [address]- [address] January, [facility] [place] [facility] [address] [id number] [place] [address] Dec, [facility] [place] [facility] [address] [id number] [place] [address]- [address] Dec, [facility] [place] [facility] [address] [id number] [place] [address]- [address] Dec, [facility] [place] [facility] [address] [id number] [place] [address] Dec, [facility] [place] [facility] [address] [id number] [place] [address]- [address] Dec, [facility] [place] [facility] [address] [id number] [place] [address]- 4546 Dec, [facility] [place] [facility] [address] [id number] [place] [address] Dec, [facility] [place] [facility] [address] [id number] [place] [address]- [address] Dec, [facility] [place] [facility] [address] [id number] [place] [address]- [address] Dec, [facility] [place] [facility] [address] [id number] [place] [address]- [address] Dec, [facility] [place] [facility] [address] [id number] [place] [address]- 44[address] Nov, [facility] [place] [facility] [address] [id number] [place] [address]- [address] Nov, [facility] [place] [facility] [address] [id number] [place] [address] Nov, [facility] [place] [facility] [address] [id number] [place] [address] Nov, [facility] [place] [facility] [address] [id number] [place] [address] Nov, [facility] [place] [facility] [address] [id number] [place] [address] 2829 Nov, [facility] [place] [facility] [address] [id number] [place] [address] 42[address] Nov, [facility] [place] [facility] [address] [id number] [place] [address] 0594 Nov, [facility] [place] [facility] [address] [id number] [place] [address] 9055 Nov, [facility] [place] [facility] [address] [id number] [place] [address] 6[address] Nov, [facility] [place] [facility] [address] [id number] [place] [address] 5148 Oct, [facility] [place] [facility] [address] [id number] [place] [address] 7145 Oct, [facility] [place] [facility] [address] [id number] [place] [address] 5998 Oct, [facility] [place] [facility] [address] [facility] [id number] [place] [address]- 4783 Oct, [facility] [place] [facility] [address] [id number] [place] [address]- 4951 Oct, [facility] [place] [facility] [address] [id number] [place] [address] 1815 Oct, [facility] [place] [facility] [address] [facility] [id number] [place] [address] 9808 Oct, [facility] [place] [facility] [address] [facility] [id number] [place] [address]- 4924 Oct, [facility] [place] [facility] [address] [id number] [place] [address]- 1649 Oct, [facility] [place] [facility] [address] [id number] [place] [address]- 5022 Oct, [facility] [place] [facility] [address] [id number] [place] [address]- 8940 Oct, [facility] [place] [facility] [address] [facility] [id number] [place] [address]- 8974 Oct, [facility] [place] [facility] [address] [id number] [place] [address]- 7889 Oct, [facility] [address] [id number] [place] [address] 2220 Oct, [facility] [address] [id number] [place] [address]- 8482 Sep, [facility] [address] [id number] [place] [address]- 8639 Sep, [facility] [address] [id number] [place] [address]- 4534 15 Sep, 2013 [facility] [address] [id number] [place] [address]- 7392 15 Sep, 2013 [facility] [address] [id number] [place] [address]- 0750 Sep, [facility] [address] [id number] [place] [address]- 2524 Sep, [facility] [address] [id number] [place] [address]- 6966 Sep, [facility] [address] [id number] [place] [address]- 7538 Sep, [facility] [address] [id number] [place] [address]- 1319 Sep, [facility] [address] [id number] [place] [address]- 8034 Sep, [facility] [address] [id number] [place] [address]- 9359 Aug, [facility] [place] [facility] [address] [id number] [place] [address]- 9973 Aug, [facility] [place] [facility] [address] [id number] [place] [address] 4676 Jul, [facility] [address] [id number] [place] [address]- 0424 Jul, [facility] [place] [facility] [address] [id number] [place] [address]- 2707 Jul, [facility] [place] [facility] [address] [id number] [place] [address]- 1074 Jul, [facility] [place] [facility] [address] [id number] [place] [address]- 3484 Jul, [facility] [place] [facility] [address] [id number] [place] [address]- 3415 Jul, [facility] [place] [facility] [address] [id number] [place] [address]- 9900 Jul, [facility] [place] [facility] [address] [id number] [place] [address]- 0441 Jul, [facility] [place] [facility] [address] [id number] [place] [address]- 2719 Jul, [facility] [place] [facility] [address] [id number], [place] [address] Jul, [facility] [place] [facility] [address] [id number] [place] [address]- 4318 Jul, [facility] [place] [facility] [address] [id number], [place] [address]- 9592 Jul, [facility] [place] [facility] [address] [id number], [place] [address]- 2244 Jul, [facility] [place] [facility] [address] [id number], [place] [address]- 8542 Jul, [facility] [place] [facility] [address] [id number], [place] [address]- 6466 Jul, [facility] [place] [facility] [address] [id number], [place] [address]- 1255 Jul, [facility] [place] [facility] [address] [id number], [place] [address]- 9140 Jul, [facility] [place] [facility] [address] [id number], [place] [address]- 4887 Jul, 2012 [facility] [place] [facility] [address] [id number] [place] [address]- 4528 Jul, 2012 [facility] [place] [facility] [address] [id number] [place] [address]- 5716 Jun, 2012 [facility] [place] [facility] [address] [id number] [place] [address]- 6314 Jun, 2012 [facility] [place] [facility] [address] [id number] [place] [address]- 7290 Jun, 2012 [facility] [place] [facility] [address] [id number] [place] [address]- 6017 Jun, 2012 [facility] [place] [facility] [address] [id number] [place] [address] Jun, 2012 [facility] [place] [facility] [address] [id number] [place] [address] Jun, 2012 [facility] [place] [facility] [address] [id number] [place] [address]- 1903 Jun, [facility] [place] [facility] [address] [id number] [place] [address]- 6231 Jun, [facility] [place] [facility] [address] [id number], [place] [address]- 5430 Jun, [facility] [place] [facility] [address] [id number], [place] [address]- 9311 Jun, [facility] [place] [facility] [address] [id number], [place] [address]- 8940 Jun, [facility] [place] [facility] [address] [id number], [place] [address]- 0864 May, 2012 [facility] [place] [facility] [address] [id number] [place] [address]- 6000 25 May, 2012 [facility] [place] [facility] [address] [id number] [place] [address]- 8877 19 May, 2012 [facility] [place] [facility] [address] [id number] [place] [address]- 7614 17 May, 2012 [facility] [place] [facility] [address] [id number] [place] [address]- 4654 11 May, 2013 [facility] [place] [facility] [address] [id number] [place] [address]- 7176 10 May, 2012 [facility] [place] [facility] [address] [id number] [place] [address]- 0756 09 May, 2013 [facility] [place] [facility] [address] [id number] [place] [address]- 7478 05 May, 2013 [facility] [place] [facility] [address] [id number] [place] [address]- 0717 Apr, [facility] [place] [facility] [address] [id number] [place] [address]- 9886 Apr, [facility] [place] [facility] [address] [id number] [place] [address]- 8831 Apr, [facility] [place] [facility] [address] [id number] [place] [address]- 0456 Apr, [facility] [place] [facility] [address] [id number] [place] [address]- 7014 Apr, [facility] [place] [facility] [address] [id number] [place] [address]- 0034 Mar, [facility] [place] [facility] [address] [id number] [place] [address]- 8517 Mar, [facility] [place] [facility] [address] [id number] [place] [address]- 4219 Mar, [facility] [place] [facility] [address] [id number] [place] [address]- 2732 Mar, [facility] [place] [facility] [address] [id number] [place] [address]- 1724 Mar, [facility] [place] [facility] [address] [id number] [place] [address]- 2320 Mar, [facility] [address] [id number] [place] [address]- 1818 Mar, [facility] [place] [facility] [address] [id number] [place] [address]- 7269 Mar, [facility] [address] [id number] [place] [address]- 0338 Feb, [facility] [place] [facility] [address] [id number] [place] [address]- 2478 Feb, [facility] [address] [id number] [place] [address]- 0207 January, [facility] [place] [facility] [address] [id number] [place] [address]- 4821 January, [facility] [address] [id number] [place] [address]- 2070 Dec, [facility] [place] [facility] [address] [id number] [place] [address]- 0265 Dec, [facility] [place] [facility] [address] [id number] [place] [address]- 2112 Nov, [facility] [place] [facility] [address] [id number] [place] [address]- 9506 Nov, [facility] [place] [facility] [address] [id number] [place] [address]- 9878 Nov, [facility] [place] [facility] [address] [id number], [place] [address]- 0469 Nov, [facility] [place] [facility] [address] [id number] [place] [address]- 3517 Oct, [facility] [place] [facility] [address] [id number] [place] [address]- 8273 Oct, [facility] [place] [facility] [address] [id number] [place] [address]- 0078 Oct, [facility] [place] [facility] [address] [id number] [place] [address]- 4626 26 Oct, 2012 [facility] [address] [id number] [place] [address] 2546 16 Oct, 2012 [facility] [place] [facility] [address] [id number] [place] [address] 2546 14 Oct, 2012 [facility] [address] [id number] [place] [address] 2546 08 Oct, 2012 [facility] [place] [facility] [address] [id number] [place] [address] 2549 07 Oct, 2012 [facility] [address] [id number] [place] [address]- 4736 03 Oct, 2012 [facility] [address] [id number] [place] [address]- 4372 30 Sep, 2012 [facility] [address] [id number] [place] [address]- 7760 Sep, [facility] [address] [id number] [place] [address]- 0832 Sep, [facility] [address] [id number] [place] [address]- 1904 Sep, [facility] [address] [id number] [place] [address]- 4976 17 Sep, 2012 [facility] [address] [id number] [place] [address]- 9178 Sep, [facility] [address] [id number] [place] [address] 2549 09 Sep, 2012 [facility] [place] [facility] [address] [id number] [place] [address] 2546 Sep, [facility] [place] [facility] [address] [id number] [place] [address]- 2546 Aug, [facility] [place] [facility] [address] [id number] [place] [address]- 0519 Aug, [facility] [place] [facility] [address] [id number] [place] [address]- 6929 Aug, [facility] [place] [facility] [address] [id number] [place] [address]- 3165 Aug, [facility] [place] [facility] [address] [id number] [place] [address]- 6641 Aug, [facility] [place] [facility] [address] [id number] [place] [address]- 9472 Aug, [facility] [place] [facility] [address] [id number] [place] [address]- 0745 Aug, [facility] [place] [facility] [address] [id number] [place] [address]- 5722 Aug, [facility] [place] [facility] [address] [id number] [place] [address]- 9739 Jul, [facility] [place] [facility] [address] [id number], [place] [address]- 7163 Jul, [facility] [place] [facility] [address] [id number] [place] [address]- 4413 Jul, [facility] [place] [facility] [address] [id number], [place] [address]- 0726 Jul, [facility] [place] [facility] [address] [id number], [place] [address]- 2804 Jul, [facility] [place] [facility] [address] [id number], [place] [address]- 4121 Jul, [facility] [place] [facility] [address] [id number] [place] [address]- 5952 Jun, [facility] [place] [facility] [address] [id number], [place] [address]- 9039 Jun, [facility] [place] [facility] [address] [facility] [id number], [place] [address]- 2411 Jun, [facility] [place] [facility] [address] [id number] [place] [address]- 4342 23 Jun, 2012 [facility] [place] [facility] [address] [id number] [place] [address]- 5821 22 Jun, 2012 [facility] [place] [facility] [address] [id number] [place] [address]- 9786 19 Jun, 2012 [facility] [place] [facility] [address] [id number] [place] [address]- 2536 Jun, [facility] [place] [facility] [address] [id number] [place] [address]- 2461 10 Jun, 2012 [facility] [place] [facility] [address] [id number] [place] [address]- 6401 10 Jun, 2012 [facility] [place] [facility] [address] [id number] [place] [address]- 3412 26 May, 2012 [facility] [place] [facility] [address] [id number] [place] [address]- 6795 24 May, 2012 [facility] [place] [facility] [address] [id number] [place] [address]- 6952 18 May, 2012 [facility] [place] [facility] [address] [id number] [place] [address]- 7408 30 Apr, 2012 [facility] [place] [facility] [address] [id number] [place] [address]- 8088 29 Apr, 2012 [facility] [place] [facility] [address] [id number] [place] [address]- 1213 18 Apr, 2012 [facility] [place] [facility] [address] [id number] [place] [address]- 8012 14 Apr, 2012 [facility] [place] [facility] [address] [id number] [place] [address]- 5840 Apr, [facility] [place] [facility] [address] [id number] [place] [address]- 3128 Apr, [facility] [place] [facility] [address] [id number] [place] [address]- 9806 Mar, [facility] [place] [facility] [address] [id number] [place] [address]- 7924 Mar, [facility] [place] [facility] [address] [id number] [place] [address]- 1319 Mar, [facility] [place] [facility] [address] [id number] [place] [address]- 2709 Mar, [facility] [place] [facility] [address] [id number] [place] [address]- 3686 Feb, [facility] [place] [facility] [address] [id number] [place] [address]- 1341 Feb, [facility] [place] [facility] [address] [id number] [place] [address]- 2922 Feb, [facility] [place] [facility] [address] [id number] [place] [address]- 4276 Feb, [facility] [place] [facility] [address] [id number] [place] [address]- 7418 Feb, [facility] [place] [facility] [address] [id number] [place] [address]- 9614 January, [facility] [place] [facility] [address] [id number] [place] [address]- 4720 January, [facility] [place] [facility] [address] [id number] [place] [address]- 5705 January, [facility] [place] [facility] [address] [id number] [place] [address]- 7380 January, [facility] [place] [facility] [address] [id number] [place] [address]- 4197 January, [facility] [place] [facility] [address] [id number] [place] [address]- 3984 January, [facility] [place] [facility] [address] [id number] [place] [address]- 8795 Dec, [facility] [place] [facility] [address] [id number] [place] [address]- 8996 24 Dec, 2011 [facility] [place] [facility] [address] [id number] [place] [address]- 5492 17 Dec, 2011 [facility] [place] [facility] [address] [id number] [place] [address]- 4686 09 Dec, 2011 [facility] [place] [facility] [address] [facility] [id number] [place] [address]- 0976 06 Dec, 2011 [facility] [place] [facility] [address] [id number] [place] [address]- 8420 27 Nov, 2011 [facility] [place] [facility] [address] [id number] [place] [address]- 3539 14 Nov, 2011 [facility] [place] [facility] [address] [facility] [id number] [place] [address]- 7062 Nov, [facility] [place] [facility] [address] [facility] [id number] [place] [address]- 9793 Nov, [facility] [place] [facility] [address] [id number] [place] [address]- 3450 29 Oct, 2011 [facility] [place] [facility] [address] [id number] [place] [address]- 0050 28 Oct, 2011 [facility] [place] [facility] [address] [id number] [place] [address]- 9299 24 Oct, 2011 [facility] [place] [facility] [address] [id number] [place] [address]- 3130 Oct, [facility] [place] [facility] [address] [id number] [place] [address]- 5593 08 Oct, 2011 [facility] [place] [facility] [address] [id number] [place] [address]- 8174 Sep, [facility] [place] [facility] [address] [id number] [place] [address]- 9978 30 Sep, 2011 [facility] [place] [facility] [address] [facility] [id number] [place] [address]- 8462 Sep, [facility] [place] [facility] [address] [id number] [place] [address]- 8382 Sep, [facility] [place] [facility] [address] [id number] [place] [address]- 8026 Sep, [facility] [place] [facility] [address] [id number] [place] [address]- 8557 Sep, [facility] [place] [facility] [address] [id number] [place] [address]- 8559 Aug, [facility] [place] [facility] [address] [id number] [place] [address]- 1453 Aug, [facility] [place] [facility] [address] [id number] [place] [address]- 3598 Aug, [facility] [place] [facility] [address] [id number] [place] [address]- 6601 Jul, [facility] [place] [facility] [address] [id number] [place] [address]- 0462 Jul, [facility] [place] [facility] [address] [id number] [place] [address]- 3772 Jul, [facility] [place] [facility] [address] [id number] [place] [address]- 7447 Jul, [facility] [place] [facility] [address] [id number] [place] [address]- 4634 Jun, [facility] [place] [facility] [address] [id number] [place] [address]- 1234 31 Jun, 2011 [facility] [place] [facility] [address] [id number] [place] [address]- 2698 18 Jun, 2011 [facility] [place] [facility] [address] [id number] [place] [address]- 6302 10 Jun, 2011 [facility] [place] [facility] [address] [id number] [place] 0379 Jun, [facility] [place] [facility] [address] [id number] [place] [address]- 9003 10 Jun, 2011 [facility] [place] [facility] [address] [id number] [place] [address]- 6816 11 Mar, 2011 [facility] [place] [facility] [address] [id number] [place] [address]- 1279 18 Dec, 2010 [facility] [place] [facility] [address] [id number] [place] [address]- 0436 11 Dec, 2010 [facility] [place] [facility] [address] [id number] [place] [address]- 0725 18 Nov, 2010 [facility] [place] [facility] [address] [id number] [place] [address]- 5733 16 Nov, 2010 [facility] [place] [facility] [address] [id number] [place] [address] 10 Sep, 2010 [facility] [place] [facility] [address] [id number] [place] [address] 31 Aug, 2010 [facility] [place] [facility] [address] [id number] [place] [address] 29 Aug, 2010 [facility] [place] [facility] [address] [id number] [place] [address] 29 Aug, 2010 [facility] [place] [facility] [address] [id number] [place] [address] 29 Aug, 2010 [facility] [place] [facility] [address] [id number] [place] [address] 27 Aug, 2010 [facility] [place] [facility] [address] [id number] [place] [address] 14 Aug, 2010 [facility] [place] [facility] [address] [id number] [place] [address] 08 Aug, 2010 [facility] [place] [facility] [address] [id number] [place] [address] 08 Aug, 2010 [facility] [place] [facility] [address] [facility] [id number] [place] [address] 07 Aug, 2010 [facility] [place] [facility] [address] [id number] [place] [address] 06 Aug, 2010 [facility] [place] [facility] [address] [id number] [place] [address] Aug, [facility] [place] [facility] [address] [id number] [place] [address] Aug, [facility] [place] [facility] [address] [id number] [place] [address] Jul, [facility] [place] [facility] [address] [id number] [place] [address] Jul, [facility] [place] [facility] [address] [id number] [place] [address] Jul, [facility] [place] [facility] [address] [facility] [id number] [place] [address] Jul, [facility] [place] [facility] [address] [facility] [id number] [place] [address] Jul, [facility] [place] [facility] [address] [id number] [place] [address] Jul, [facility] [place] [facility] [address] [facility] [id number] [place] [address] 78[address] 24 Jun, 2010 [facility] [place] [facility] [address] [facility] [id number] [place] [address]796 Jun, [facility] [place] [facility] [address] [id number] [place] [address] Jun, [facility] [place] [facility] [address] [facility] [id number], [place] [address] Jun, [facility] [place] [facility] [address] [id number] [place] [address] 16 Apr, 2010 [facility] [place] [facility] [address] [facility] [id number] [place] [address] 2546 Mar, [facility] [place] [facility] [address] [id number], [place] [address] Feb, [facility] [place] [facility] [address] [id number] [place] [address] January, [facility] [place] [facility] [address] [id number] [place] [address] 15 Dec, 2009 [facility] [place] [facility] [address] [id number] [place] [address] Nov, [facility] [place] [facility] [address] [id number] [place] [address], [place] [address] Aug, [facility] [address] [id number] [place] [address] Aug, [facility] [address] [id number] [place] [address] Aug, [facility] [address] [facility] [id number] [place] [address] Jul, [facility] [place] [facility] [address] [id number] [place] [address] Jul, [facility] [address] [id number] [place] [address] Jul, [facility] [place] [facility] [address] [facility] [id number], [place] [address] 30 Jun, 2009 [facility] [place] [facility] [address] [facility] [id number] [place] [address] 29 Jun, 2009 [facility] [place] [facility] [address] [id number], [place] [address] Jun, [facility] [place] [facility] [address] [id number], [place] [address] Jun, [facility] [place] [facility] [address] [id number], [place] [address] Jun, [facility] [place] [facility] [address] [id number], [place] [address] Jun, [facility] [place] [facility] [address] [id number], [place] [address] Apr, [facility] [address] [facility] [id number] [place] [address] Apr, [facility] [address] [facility] [id number], [place] [address] Feb, [facility] [address] [facility] [id number], [place] [address] January, [facility] [address] [facility] [id number], [place] [address] Dec, IMMUNIZATIONS No Known Immunizations SOCIAL HISTORY Never Assessed REASON FOR VISIT valium refill PLAN OF CARE VITAL SIGNS MEDICATIONS Medication Instructions Dosage Frequency Start Date End Date Duration Status Valium 5 MG Orally Twice a day as needed for anxiety 1 tablet Oct, 30 days Active RESULTS No Results PROCEDURES [...] obesity Medical History skin cancer-basal cell R pentecostal (removed) Medical History Arthritis Medical History degenerative [...] 2009 Surgical History colonoscopy 2009 ([facility]), 2013 ([facility]) Surgical History heart 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 04/2014 Surgical History carotid US 05/2014 Surgical History resection of skin cancer from Right pentecostal Surgical History Biopsy of Lung Bilateral/Left lung lymph node 09/2016 Surgical History Bone Marrow Biopsy Surgical History port in the right chest wall 12/2016 Hospitalization History [facility] low potassium, low magnesium, chest painina 01/2015 Hospitalization History inability to urinate 09/16/15 Hospitalization History [facility] early Hospitalization History hyperkalemia 10/2017 Hospitalization History fluid in lung
--- OUTSIDE RECORDS SUMMARY | 2018-08-08 12:32 | XMS REPORT ---
Author Author NOEMI WASHBURN Organization [facility] Address [address] [place] [address] Care Team Providers Care Motor Polarizer Name Role Phone NOEMI WASHBURN Unavailable PROBLEMS Type Condition ICD9-CM Code IVY56-MV Code Onset Dates Condition Status SNOMED Code Problem Chronic lymphocytic leukemia C91.10 Active 20761778 Problem Insomnia, unspecified type G47.00 Active 450985296 Problem Lymphocytosis D72.820 Active 45498781 Problem Anxiety F41.9 Active 60772872 Problem Eye exam abnormal R93.8 Active 754381416 Problem Morbid obesity E66.01 Active 904432254 Problem Diabetic polyneuropathy associated with type 2 diabetes mellitus E11.42 Active 30429884 Problem Essential hypertension I10 Active 13492012 Problem Falling R29.6 Active 488993738 Problem 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 Active 499879467 Problem Cough R05 Active 16088810 Problem Dysuria R30.0 Active 61648658 Problem Eustachian tube dysfunction, unspecified laterality H69.80 Active 86975035 Problem Bilateral primary osteoarthritis of knee M17.0 Active 431179110 Problem Polyneuropathy associated with underlying disease G63 Active 303955209 Problem Anemia of chronic illness D63.8 Active 670929727 Problem Retinal edema H35.81 Active 9166193 Problem DM neuro manif type II E11.49 Active 14866141 Problem Diabetes E11.9 Active 66551888 Problem Hypokalemia E87.6 Active 95983884 Problem Benign prostatic hyperplasia with lower urinary tract symptoms, unspecified morphology N40.1 Active 455785331 Problem Reactive airway disease J45.909 Active 278337204245 Problem Bipolar I disorder, most recent episode (or current) mixed, moderate F31.62 Active 85487729 Problem Chronic pain G89.29 Active 57326908 Problem Leukocytosis D72.829 Active 029844829 ALLERGIES No Information ENCOUNTERS Encounter Location Date Diagnosis [facility] [address], [place] [address] Apr, [facility] [address] [address] Mar, [facility] [address] [address] Mar, [facility] [address] [address] Mar, [facility] [address], [place] [address] Mar, Bipolar I disorder, most recent episode (or current) mixed, moderate F31.62 [facility] [address], [place] [address] Feb, Bipolar I disorder, most recent episode (or current) mixed, moderate F31.62 [facility] [address], [place] [address] Feb, Chronic pain G89.29 [facility] [address], [place] [address] Feb, Decubitus ulcer of right foot, stage 3 L89.893 and BMI 50.0- 59.9, adult Z68.43 [facility] [address], [place] [address] Feb, Bipolar I disorder, most recent episode (or current) mixed, moderate F31.62 [facility] [address], [place] [address] Feb, [facility] [address] [address] January, [facility] [address], [place] [address] 6[address] January, Chronic pain G89.29 [facility] [address], [place] [address] January, Bipolar I disorder, most recent episode (or current) mixed, moderate F31.62 [facility] [id number] [place] [address] 45258- 7123 January, Bipolar I disorder, most recent episode (or current) mixed, moderate F31.62 [facility] [id number] [place] [address] 31062- 6719 Dec, Bipolar I disorder, most recent episode (or current) mixed, moderate F31.62 and BMI 50.0-59.9, adult Z68.43 [facility] [id number] [place] [address] 36973- 5110 Dec, Bipolar I disorder, most recent episode (or current) mixed, moderate F31.62 [facility] [id number] [place] [address] 81665- 0385 Dec, Chronic pain G89.29 [facility] [address] [address]- 4957 Dec, DM neuro manif type II E11.49 ; Right flank pain R10.9 ; retirement 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 Z79.891 ; Encounter for medication monitoring Z51.81 and BMI 50.0-59.9, adult Z68.43 [facility] [id number] [place] [address] 70444- 6234 Dec, Bipolar I disorder, most recent episode (or current) mixed, moderate F31.62 [facility] [id number] [place] [address] 69095- 6779 Nov, Bipolar I disorder, most recent episode (or current) mixed, moderate F31.62 [facility] [id number] [place] [address] 27607- 8067 Nov, Chronic pain G89.29 [facility] [id number] [place] [address] 44369- 1702 Nov, Bipolar I disorder, most recent episode (or current) mixed, moderate F31.62 [facility] [id number] [place] [address] 73757- 9789 Nov, Hypokalemia E87.6 [facility] [address] [place]- 3816 Nov, Bipolar I disorder, most recent episode (or current) mixed, moderate F31.62 [facility] [address] 052813- 7987 Oct, Chronic pain G89.29 [facility] [address] 868716- 8432 Oct, BMI 50.0-59.9, adult Z68.43 and Bipolar I disorder, most recent episode (or current) mixed, moderate F31.62 [facility] [address] 27445- 0361 Oct, Bipolar I disorder, most recent episode (or current) mixed, moderate F31.62 [facility] [id number] [place] [address] 79341- 1274 Oct, [facility] [address] 023203- 8757 Oct, Hypokalemia E87.6 [facility] [id number] [place] [address] 45648- 1438 Oct, DM neuro manif type II E11.49 [facility] [id number] [place] [address] 66914- 3665 Oct, Bipolar I disorder, most recent episode (or current) mixed, moderate F31.62 [facility] [address] 54140- 2859 Oct, Bipolar I disorder, most recent episode (or current) mixed, moderate F31.62 [facility] [id number] [place] [address] 49641- 1753 14 Oct, 2017 Hyperkalemia E87.5 ; Falling R29.6 ; BMI 50.0-59.9, adult Z68.43 and Acute left ankle pain M25.572 [facility] [facility] [address] 03945- 0096 08 Oct, 2017 DM neuro manif type II E11.49 [facility] [address] 44037- 2453 Oct, [facility] [address] 64521- 3477 Sep, Chronic pain G89.29 [facility] [address] 97675- 3821 Sep, [facility] [address] 65472- 3412 Sep, Bilateral primary osteoarthritis of knee M17.0 [facility] [facility] [address] 92446- 4857 Sep, Generalized edema R60.1 [facility] [address] 78725- 8318 Sep, Bipolar I disorder, most recent episode (or current) mixed, moderate F31.62 [facility] [id number] [place] [address] 37150- 3567 Sep, Hypoxia R09.02 ; Other hypervolemia E87.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 [id number] [place] [address] 94902- 9145 Aug, Generalized edema R60.1 [facility] [id number] [place] [address] 60859- 4726 Aug, [facility] [id number] [place] [address] 140927- 9140 Aug, [facility] [id number] [place] [address] 07064- 4320 14 Aug, 2017 Bipolar I disorder, most recent episode (or current) mixed, moderate F31.62 [facility] [place] [id number] [place] [address] 94905- 5137 Aug, Bipolar I disorder, most recent episode (or current) mixed, moderate F31.62 [facility] [place] [id number] [place] [address] 82557- 3366 04 Aug, 2017 Chronic pain G89.29 [facility] [place] [id number] [place] [address] 01534- 5551 30 Jul, 2017 Bipolar I disorder, most recent episode (or current) mixed, moderate F31.62 [facility] [address] [place] [address] 10006- 2861 Jul, Bipolar I disorder, most recent episode (or current) mixed, moderate F31.62 and BMI 60.0-69.9, adult Z68.44 [facility] [address] [place] [address] 24021- 1804 16 Jul, 2017 Bipolar I disorder, most recent episode (or current) mixed, moderate F31.62 [place] [address] [address]- 3823 06 Jul, [address] [facility] [id number] [place] [address] 30635- 0910 Jul, Bipolar I disorder, most recent episode (or current) mixed, moderate F31.62 [facility] [address] [place] [address] 93905- 1971 Jun, Polyneuropathy associated with underlying disease G63 and Diabetes E11.9 [facility] [id number] [place] [address] 66519- 2974 Jun, Bipolar I disorder, most recent episode (or current) mixed, moderate F31.62 [facility] [address] [place] [address] 29147- 3352 Jun, Chronic pain G89.29 [facility] [id number] [place] [address] 77935- 8411 May, Bipolar I disorder, most recent episode (or current) mixed, moderate F31.62 [facility] [id number] [place] [address] 46691- 5888 May, Bipolar I disorder, most recent episode (or current) mixed, moderate F31.62 [facility] [id number] [place] [address] 93619- 6116 20 May, 2017 Diabetic polyneuropathy associated with type [address] [facility] [address] [place] [address] 06238- 9359 18 May, 2017 Bipolar I disorder, most recent episode (or current) mixed, moderate F31.62 [facility] [address] [place] [address] 26015- 0662 13 May, 2017 Bipolar I disorder, most recent episode (or current) mixed, moderate F31.62 [facility] [id number] [place] [address] 45741- 0437 May, Chronic pain G89.29 [facility] [address] [place] [address] 69289- 6107 Apr, Bipolar I disorder, most recent episode (or current) mixed, moderate F31.62 [facility] [address] [address]- 4045 Apr, [facility] [id number] [place] [address] 31473- 9296 Apr, Chronic pain G89.29 and DM neuro manif type II E11.49 [facility] [id number] [place] [address] 68131- 9736 Apr, [facility] [id number] [place] [address] 48927- 8053 Apr, Bipolar I disorder, most recent episode (or current) mixed, moderate F31.62 [facility] [id number] [place] [address] 39914- 3041 Apr, Chronic pain G89.29 [facility] [id number] [place] [address] 46442- 7024 Apr, Iliotibial band syndrome, left M76.32 [facility] [id number] [place] [address] 96901- 2494 Apr, Bipolar I disorder, most recent episode (or current) mixed, moderate F31.62 [facility] [id number] [place] [address] 38319- 1099 Mar, Bipolar I disorder, most recent episode (or current) mixed, moderate F31.62 [facility] [address] [place] [address] 84981- 9842 Mar, Bipolar I disorder, most recent episode (or current) mixed, moderate F31.62 [facility] [address] [place] [address] 09209- 8773 Mar, [facility] [id number] [place] [address] 86497- 5012 Mar, Bipolar I disorder, most recent episode (or current) mixed, moderate F31.62 [facility] [address] [place] [address] 85438- 5134 Mar, Chronic pain G89.29 [facility] [address], [place] [address]- 3137 Mar, Bipolar I disorder, most recent episode (or current) mixed, moderate F31.62 [facility] [address], [place] [address]- 7212 Mar, Bipolar I disorder, most recent episode (or current) mixed, moderate F31.62 [facility] [id number] [place] [address] 40271- 6098 Mar, Acute pain of left knee M25.562 ; Left hip pain M25.552 ; Generalized edema R60.1 and Tongue swelling R22.0 [facility] [id number] [place] [address] 72085- 3638 Mar, [facility] [id number] [place] [address] 32691- 6229 Feb, Chronic pain G89.29 [facility] [id number] [place] [address] 81171- 1096 Feb, Diabetes E11.9 [facility] [id number] [place] [address] 61506- 3276 January, Chronic pain G89.29 [facility] [address] [place] [address] 58379- 5663 January, [facility] [id number] [place] [address] 73588- 9723 January, Bipolar I disorder, most recent episode (or current) mixed, moderate F31.62 [facility] [id number] [place] [address] 54541- 3279 Dec, Bipolar I disorder, most recent episode (or current) mixed, moderate F31.62 [facility] [address], [place] [address]- 1475 Dec, Chronic pain G89.29 [facility] [id number] [address]- 5340 Dec, Bipolar I disorder, most recent episode (or current) mixed, moderate F31.62 [facility] [id number] [place] [address] 42375- 0997 Dec, Diabetes E11.9 ; Essential hypertension I10 ; Chronic pain G89.29 and Morbid obesity E66.01 [facility] [id number] [place] [address] 01342- 3362 Dec, [facility] [id number] [place] [address] 84625- 3266 Dec, Bipolar I disorder, most recent episode (or current) mixed, moderate F31.62 [place] [id number] [place] [address] 72799- 2544 Dec, Bipolar I disorder, most recent episode (or current) mixed, moderate F31.62 [place] [id number] [place] [address] 68232- 0976 Nov, Chronic pain G89.29 [facility] [id number] [place] [address] 47130- 3997 Nov, Bipolar I disorder, most recent episode (or current) mixed, moderate F31.62 [place] [address] [id number] [place] [address] 15932- 1754 Nov, [facility] [id number] [place] [address] 36021- 7019 Nov, Bipolar I disorder, most recent episode (or current) mixed, moderate F31.62 [facility] [id number] [place] [address] 30903- 8256 Nov, Bipolar I disorder, most recent episode (or current) mixed, moderate F31.62 [facility] [address] [place] [address] 13612- 4059 Nov, [facility] [id number] [place] [address] 18614- 6135 Nov, [facility] [address], [place] [address]- 5866 Nov, [facility] [id number] [place] [address] 19078- 9933 Oct, Chronic pain G89.29 [facility] [address] [place] [address] 67392- 8146 Oct, Bipolar I disorder, most recent episode (or current) mixed, moderate F31.62 [facility] [address] [place] [address] 54142- 3465 Oct, 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 [id number] [place] [address] 70723- 0153 Oct, [facility] [id number] [place] [address] 54210- 1845 Oct, Diabetes E11.9 [facility] [address] [place] [address] 31268- 6358 Oct, Bipolar I disorder, most recent episode (or current) mixed, moderate F31.62 [facility] [address], [place] [address]- 1593 Sep, Chronic pain G89.29 [facility] [address], [place] [address]- 3028 Sep, Chronic pain G89.29 [facility] [id number] [place] [address] 36334- 5948 Aug, Chronic pain G89.29 [facility] [id number] [place] [address] 73652- 2703 Jul, [facility] [id number] [place] [address] 23074- 4835 Jul, Diabetes E11.9 [facility] [id number] [place] [address] 87628- 6149 Jul, Chronic pain G89.29 [facility] [id number] [place] [address] 75463- 7064 Jul, Bipolar I disorder, most recent episode (or current) mixed, moderate F31.62 [place] [id number] [place] [address] 39120- 2637 Jun, Bipolar I disorder, most recent episode (or current) mixed, moderate F31.62 [place] [id number] [place] [address] 25725- 3341 Jun, [place] [id number] [place] [address] 73855- 9313 Jun, Bipolar I disorder, most recent episode (or current) mixed, moderate F31.62 [place] [id number] [place] [address] 21049- 4880 30 May, 2016 Insomnia, unspecified type G47.00 [place] [id number] [place] [address] 83035- 6007 May, Bipolar I disorder, most recent episode (or current) mixed, moderate F31.62 [place] [id number] [place] [address] 96181- 4684 14 May, 2016 [place] [id number] [place] [address] 73822- 8743 08 May, 2016 Bipolar I disorder, most recent episode (or current) mixed, moderate F31.62 [place] [id number] [place] [address] 03839- 4451 06 May, 2016 Diabetes E11.9 and Essential hypertension I10 [facility] [id number] [place] [address] 32577- 8086 Apr, Chronic pain G89.29 [facility] [address], [place] [address]- 3723 Apr, Bipolar I disorder, most recent episode (or current) mixed, moderate F31.62 [facility] [id number] [place] [address] 20141- 5097 Apr, [place] [id number] [place] [address] 54766- 5880 Apr, [place] [id number] [place] [address] 10356- 1732 Mar, Chronic pain G89.29 ; Headache, unspecified headache type R51 ; Neuropathy G62.9 ; Pain of right hip joint M25.551 and Essential hypertension I10 [place] [address] [place] [address] 37859- 5939 Mar, Chronic pain G89.29 [place] [id number] [place] [address] 37741- 7053 Mar, Bipolar I disorder, most recent episode (or current) mixed, moderate F31.62 [place] [id number] [place] [address] 62138- 8222 Feb, Bipolar I disorder, most recent episode (or current) mixed, moderate F31.62 and Insomnia, unspecified type G47.00 [place] [id number] [place] [address] 99581- 8466 Feb, Chronic pain G89.29 [place] [id number] [place] [address] 71769- 6318 Feb, Bipolar I disorder, most recent episode (or current) mixed, moderate F31.62 [place] [id number] [place] [address] 21947- 7768 January, Bipolar I disorder, most recent episode (or current) mixed, moderate F31.62 [place] [id number] [place] [address] 92466- 8407 January, Chronic pain G89.29 [facility] [id number] [place] [address] 79951- 0762 January, Chronic pain G89.29 and Essential hypertension I10 [facility] [id number] [place] [address] 32638- 4372 January, Bipolar I disorder, most recent episode (or current) mixed, moderate F31.62 [facility] [address] 76066- 4068 Dec, [facility] [address] 45570- 8563 Dec, [facility] [address] 29065- 7499 Dec, [facility] [address] [address]- [address] Dec, [facility] [address] [address]- [address] Nov, Reactive airway disease J45.909 [facility] [address] [address]- [address] Nov, [facility] [id number] [place] [address] 9[address]- 8571 Nov, [facility] [id number] [place] [address] 07265- 8745 Nov, [facility] [id number] [place] [address] 24750- 9369 Nov, [facility] [address] [address]- [address] Nov, Onychomycosis B35.1 ; Hammertoe M20.40 ; [place] or callus L84 and DM neuro manif type II E11.49 [facility] [id number] [place] [address] 33495- 3174 15 Nov, 2015 Chronic pain G89.29 ; Leukocytosis D72.829 and Diabetes E11.9 [facility] [facility] [id number] [place] [address] 20801- 6167 Nov, [place] [address] [id number] [place] [address] 76309- 6124 Oct, Bronchitis J40 [place] [id number] [place] [address] 24737- 9455 Oct, [place] [address] [address]- [address] Oct, [place] [address] 38[address]- [address]689 Oct, Mastoiditis, unspecified laterality H70.90 and Type 2 diabetes mellitus with complication E11.8 [facility] [facility] [id number] [place] [address] 75030- 0363 Sep, [facility] [id number] [place] [address] 56367- 3907 Sep, Dysuria R30.0 ; Cough R05 ; Benign prostatic hyperplasia with lower urinary tract symptoms, unspecified morphology N40.1 ; Hypokalemia E87.6 and Eustachian tube dysfunction, unspecified laterality H69.80 [place] [id number] [place] [address] 21215- 4879 Sep, Moderate mixed bipolar I disorder F31.62 [facility] [id number] [place] [address] 47809- 1551 Sep, Hypokalemia E87.6 [facility] [id number] [place] [address] 76300- 8569 Sep, [facility] [id number] [place] [address] 56479- 7646 Sep, Upper respiratory tract infection, unspecified type J06.9 [place] [id number] [place] [address] 14003- 5335 Aug, [facility] [address] [address] Aug, D[address] R30.0 [facility] [address] [id number] [address] Aug, [facility] [address], [place] [address] Jul, [facility] [id number] [place] [address] 837044- 9148 Jul, [facility] [address] [address] Jul, [facility] [id number] [place] [address] 462267- 3684 Jul, [facility] [id number] [place] [address] 37750- 6832 Jun, [facility] [id number] [place] [address] 09007- 1773 Jun, [facility] [id number] [place] [address]9868- 7156 Jun, [facility] [address], [place] [address] 27[address] May, [facility] [address], [place] [address] 89[address] May, Bipolar I disorder, most recent episode (or current) mixed, moderate 296.62 [facility] [address], [place] [address] 16 May, 2015 [facility] [address] [address] 02 May, 2015 Bipolar I disorder, most recent episode (or current) mixed, moderate 296.62 and Major depressive disorder, recurrent episode, severe, specified as with psychotic behavior 296.34 [facility] [address], [place] [address] 0125 May, Bipolar I disorder, most recent episode (or current) mixed, moderate 296.62 [facility] [id number] [place] [address] 823709- 4916 May, [facility] [id number] [place] [address] 13613- 5986 Apr, [facility] [id number] [place] [address] 32227- 9376 Apr, [facility] [id number] [place] [address] 60406- 6958 Apr, Unspecified disorder of kidney and ureter 593.9 and Diabetes mellitus type [address], [address] [facility] [id number] [place] [address] 88943- 2524 Apr, [facility] [id number] [place] [address] 05019- 1426 Apr, [facility] [id number] [place] [address] 02413- 3265 Apr, [facility] [id number] [place] [address] 41782- 3707 Apr, [facility] [id number] [address]- 7976 Apr, Diabetes mellitus type II, uncontrolled 250.02 [facility] [address], [place] [address]- 1294 Apr, [facility] [id number] [place] [address] 07324- 2912 Mar, [facility] [id number] [place] [address] 38458- 7828 Mar, [facility] [address], [place] [address]- [address]326 Mar, [facility] [id number] [place] [address] 43382- 4380 Mar, Major depressive disorder, recurrent episode, severe, specified as with psychotic behavior 296.34 and Bipolar I disorder, most recent episode (or current) mixed, moderate 296.62 [facility] [id number] [place] [address] 48475- 1548 Mar, Diabetes 250.00 ; Anuria 788.5 ; Nausea and vomiting 787.[address] [facility] [id number] [place] [address] 86588- 7701 Mar, Diabetes 250.00 [facility] [id number] [place] [address] 46351- 0155 Mar, [facility] [id number] [place] [address] 08356- 9371 Mar, Diabetes 250.00 [facility] [id number] [place] [address] 28722- 7853 Mar, [facility] [id number] [place] [address] 01225- 5374 Mar, [facility] [id number] [place] [address] 29577- 8680 Mar, [facility] [id number] [place] [address] 94311- 3224 Mar, [facility] [id number] [place] [address] 12861- 8669 Mar, Bipolar I disorder, most recent episode (or current) mixed, moderate 296.62 and Major depressive disorder, recurrent episode, severe, specified as with psychotic behavior 296.34 [facility] [id number] [place] [address] 23057- 4644 Mar, Magnesium deficiency 275.2 ; Hypokalemia 276.8 ; Nausea & vomiting 787.01 and Diabetes mellitus type [address], [address] [facility] [address], [place] [address]- 6122 Feb, [facility] [id number] [place] [address] 22366- 1138 Feb, Bipolar I disorder, most recent episode (or current) mixed, moderate 296.62 [facility] [id number] [place] [address] 71961- 8892 Feb, Nausea and vomiting 787.01 ; Left elbow pain 719.42 ; Anuria 788.[address] [facility] [address] 81743- 7593 Feb, [facility] [address] 78423- 5898 Feb, Hypopotassemia 276.8 and Hypokalemia 276.8 [place] [facility] [id number] [place] [address] 47518- 9926 Feb, Hypopotassemia 276.8 and Hypokalemia 276.8 [place] [facility] [id number] [place] [address] 73908- 9958 Feb, Seborrheic keratoses 702.19 [place] [facility] [id number] [place] [address] 34084- 3798 Feb, Hypopotassemia 276.8 and Low magnesium levels 275.2 [place] [facility] [id number] [place] [address] 99556- 4660 January, [facility] [id number] [place] [address] 82727- 1478 January, [facility] [id number] [place] [address] 28645- 0896 January, [facility] [id number] [place] [address] 72250- 7891 January, Scalp lesion 709.9 [facility] [id number] [place] [address] 46022- 1930 January, [facility] [address] [address]13- 2493 30 Dec, 2014 Tear of medial cartilage or meniscus of knee, current 836.0 and 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 [facility] [address] [id number] [place] [address]- 0476 Dec, [facility] [address] [id number], [place] [address]- 3866 Dec, [facility] [address] [facility] [id number], [place] [address] 2546 Dec, Squamous cell carcinoma, 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 [facility] [address] [id number] [place] [address]- 0056 14 Dec, 2014 [facility] [id number], [place] [address]- 1018 Dec, [facility] [id number], [place] [address]- 9626 Nov, [facility] [address] [facility] [id number], [place] [address]- 3356 Nov, [facility] [address] [facility] [id number], [place] [address]- 5704 Nov, [facility] [address] [facility] [id number], [place] [address]- 8096 Nov, [facility] [id number], [place] [address]- 9781 Nov, [facility] [address] [facility] [id number] 4889 Nov, [facility] [address] [facility] [id number] 6532 Nov, [facility] [address] [facility] [id number] 0936 Nov, [facility] [address] [facility] [id number]- 0466 Nov, [facility] [address] [id number] [place] [address]- 3661 Nov, [facility] [place] [facility] [address] [id number] [place] [address]- 7854 Nov, [facility] [place] [facility] [address] [id number] [place] [address]- 2730 Nov, [facility] [place] [facility] [address] [id number] [place] [address]- 3578 Oct, 2014 [facility] [place] [facility] [address] [id number] [place] [address]- 2580 Oct, 2014 [facility] [place] [facility] [address] [id number] [place] [address]- 8196 Oct, 2014 [facility] [place] [facility] [address] [facility] [id number] [place] [address]- 8681 Oct, 2014 [facility] [place] [facility] [address] [facility] [id number] [place] [address]- 4531 Oct, 2014 [facility] [place] [facility] [address] [facility] [id number] [place] [address]- 4320 Oct, [facility] [place] [facility] [address] [facility] [id number] [place] [address]- 7745 Oct, [facility] [place] [facility] [address] [facility] [id number] [place] [address]- 8334 Oct, [facility] [place] [facility] [address] [facility] [id number], [place] [address]- 1762 Oct, [facility] [place] [facility] [address] [facility] [id number] [place] [address]- 1084 Sep, [facility] [place] [facility] [address] [id number] [place] [address]- 3277 Sep, [facility] [place] [facility] [address] [facility] [id number] [place] [address]- 4569 Sep, [facility] [place] [facility] [address] [facility] [id number], [place] [address]- 4153 Sep, [facility] [place] [facility] [address] [id number] [place] [address]- 8044 Sep, [facility] [place] [facility] [address] [id number] [place] [address]- 0537 Sep, [facility] [place] [facility] [address] [id number] [place] [address]- 0321 Sep, [facility] [place] [facility] [address] [id number] [place] [address]- 3890 Sep, [facility] [place] [facility] [address] [id number] [place] [address]- 2091 Sep, [facility] [place] [facility] [address] [id number] [place] [address]- 7900 Sep, [facility] [place] [facility] [address] [id number] [place] [address]- 9993 Sep, [facility] [place] [facility] [address] [id number] [place] [address]- 8347 Sep, [facility] [place] [facility] [address] [id number] [place] [address]- 9899 Sep, [facility] [place] [facility] [address] [id number] [place] [address]- 4367 Sep, [facility] [place] [facility] [address] [id number] [place] [address]- 5220 Sep, [facility] [place] [facility] [address] [id number] [place] [address]- 2810 Sep, [facility] [place] [facility] [address] [id number] [place] [address]- 6556 Aug, [facility] [place] [facility] [address] [id number] [place] [address]- 0714 Aug, [facility] [place] [facility] [address] [id number] [place] [address]- 8395 Aug, [facility] [place] [facility] [address] [id number] [place] [address]- 0593 Aug, [facility] [address] [id number] [place] [address]- 7066 Aug, [facility] [address] [id number] [place] [address]- 7301 Aug, [facility] [address] [id number] [place] [address]- 6626 Aug, [facility] [address] [id number] [place] [address]- 0307 Aug, [facility] [address] [id number] [place] [address]- 7894 Aug, [facility] [address] [id number] [place] [address]- 6888 Aug, [facility] [address] [id number] [place] [address]- 7695 Aug, [facility] [address] [place] [id number] Aug, [facility] [address] [id number] [place] [address]- 3111 Aug, [facility] [address] [id number] [place] [address]- 3055 Aug, [facility] [address] [id number] [place] [address]- 6305 Aug, [facility] [address] [id number] [place] [address]- 0443 Aug, [facility] [address] [id number] [place] [address]- 7346 Aug, [facility] [address] [id number] [place] [address]- 9658 Aug, [facility] [address] [id number] [place] [address]- 6585 Aug, [facility] [place] [facility] [address] [id number] [place] [address]- 8158 Aug, [facility] [place] [facility] [address] [id number] [place] [address]- 8508 Aug, [facility] [place] [facility] [address] [id number] [place] [address]- 7614 Aug, [facility] [place] [facility] [address] [id number] [place] 1171 Aug, [facility] [place] [facility] [address] [id number] [place] [address]- 9176 Aug, [facility] [place] [facility] [address] [id number] [place] [address]- 5221 Aug, [facility] [place] [facility] [address] [id number] [place] [address]- 7426 Aug, [facility] [place] [facility] [address] [id number] [place] [address]- 4425 Aug, [facility] [place] [facility] [address] [id number] [place] [address]- 4890 Aug, [facility] [place] [facility] [address] [id number] [place] [address]- 1922 Aug, [facility] [place] [facility] [address] [id number] [place] [address]- 2361 Aug, [facility] [place] [facility] [address] [id number] [place] [address]- 3891 Jul, [facility] [place] [facility] [address] [id number] [place] [address]- 3142 Jul, [facility] [place] [facility] [address] [id number] [place] [address]- 9585 Jul, [facility] [place] [facility] [address] [id number] [place] 4860 Jul, [facility] [place] [facility] [address] [id number] [place] [address]- 6543 Jul, [facility] [place] [facility] [address] [id number] [place] [address]- 3413 Jul, [facility] [place] [facility] [address] [id number] [place] 2913 Jul, [facility] [place] [facility] [address] [id number] [place] 3096 Jul, [facility] [place] [facility] [address] [id number] [place] [address]- 8374 Jul, [facility] [place] [facility] [address] [id number] [place] [address]- 1287 Jul, [facility] [place] [facility] [address] [id number] [place] [address]- 3728 Jun, [facility] [place] [facility] [address] [id number] [place] [address]- 2958 Jun, [facility] [place] [facility] [address] [id number], [place] [address]- 8643 Jun, [facility] [place] [facility] [address] [id number] [place] [address]- 8955 Jun, [facility] [place] [facility] [address] [id number], [place] [address]- 2131 Jun, [facility] [place] [facility] [address] [id number], [place] [address]- 2472 Jun, [facility] [place] [facility] [address] [id number], [place] [address]- 2031 Jun, [facility] [place] [facility] [address] [id number] [place] [address]- 2875 Jun, [facility] [place] [facility] [address] [id number] 2564 Jun, [facility] [place] [facility] [address] [id number]- 6687 Jun, [facility] [place] [facility] [address] [id number] [place] [address] 2542 29 Sep, 2013 [facility] [place] [facility] [address] [id number] [place] [address] 2546 29 Sep, 2013 [facility] [place] [facility] [address] [id number] [place] [address] 2546 26 Sep, 2013 [facility] [place] [facility] [address] [id number] [place] [address] 2546 26 Sep, 2013 [facility] [place] [facility] [address] [id number] [place] [address] 2546 17 Sep, 2013 [facility] [place] [facility] [address] [id number] [place] [address]- 8688 17 Sep, 2013 [facility] [place] [facility] [address] [id number] [place] [address]- 2545 15 Sep, 2013 [facility] [place] [facility] [address] [id number] [place] [address] 2548 15 Sep, 2013 [facility] [place] [facility] [address] [id number] [place] [address]- 2543 15 Sep, 2013 [facility] [place] [facility] [address] [id number] [place] [address] 2542 15 Sep, 2013 [facility] [place] [facility] [address] [id number] [place] [address] 2540 10 Sep, 2013 [facility] [place] [facility] [address] [id number] [place] [address] 2546 10 Sep, 2013 [facility] [place] [facility] [address] [id number] [place] [address] 2548 09 Sep, 2013 [facility] [place] [facility] [address] [id number] [place] [address] 2546 09 Sep, 2013 [facility] [place] [facility] [address] [id number] [place] [address] 2548 04 Sep, 2013 [facility] [place] [facility] [address] [id number] [place] [address] 3429 May, [facility] [place] [facility] [address] [id number] [place] [address]- 3872 Apr, [facility] [place] [facility] [address] [id number] [place] [address]- 6111 Apr, [facility] [place] [facility] [address] [id number] [place] [address]- 0952 Apr, [facility] [place] [facility] [address] [id number] [place] [address]- 9151 Apr, [facility] [place] [facility] [address] [id number] [place] [address]- 9547 Apr, [facility] [place] [facility] [address] [id number] [place] [address]- 3024 Apr, [facility] [place] [facility] [address] [id number] [place] [address]- 4512 Apr, [facility] [place] [facility] [address] [id number] [place] [address]- 5406 Apr, [facility] [place] [facility] [address] [id number] [place] [address]- 1943 Apr, [facility] [place] [facility] [address] [id number] [place] [address]- 0356 Apr, [facility] [place] [facility] [address] [id number] [place] [address]- 5737 Apr, [facility] [place] [facility] [address] [id number] [place] [address]- 5936 Apr, [facility] [place] [facility] [address] [id number] [place] [address]- 3044 Apr, [facility] [place] [facility] [address] [id number] [place] [address]- 3637 Apr, [facility] [place] [facility] [address] [id number] [place] [address] Apr, [facility] [place] [facility] [address] [id number] [place] [address] Mar, 2013 [facility] [place] [facility] [address] [id number] [place] [address] Mar, 2013 [facility] [place] [facility] [address] [id number] [place] [address] Mar, 2013 [facility] [place] [facility] [address] [id number] [place] [address] Mar, 2013 [facility] [place] [facility] [address] [id number] [place] [address] Mar, 2013 [facility] [place] [facility] [address] [id number] [place] [address] Mar, 2013 [facility] [place] [facility] [address] [id number] [place] [address] Mar, 2013 [facility] [place] [facility] [address] [id number] [place] [address] Mar, 2013 [facility] [place] [facility] [address] [id number] [place] [address] Mar, 2013 [facility] [place] [facility] [address] [id number] [place] [address] Mar, 2013 [facility] [place] [facility] [address] [id number] [place] [address] Mar, 2013 [facility] [place] [facility] [address] [id number] [place] [address] Mar, 2013 [facility] [place] [facility] [address] [id number] [place] [address] Mar, 2013 [facility] [place] [facility] [address] [id number] [place] [address]- [address]698 Mar, 2013 [facility] [place] [facility] [address] [id number] [place] [address] Mar, 2013 [facility] [place] [facility] [address] [id number] [place] [address] Mar, 2013 [facility] [place] [facility] [address] [id number] [place] [address] Mar, [facility] [place] [facility] [address] [id number] [place] [address] Mar, [facility] [place] [facility] [address] [id number] [place] [address] Feb, [facility] [place] [facility] [address] [id number] [place] [address] Feb, [facility] [place] [facility] [address] [id number] [place] [address] Feb, [facility] [place] [facility] [address] [id number] [place] [address] Feb, [facility] [place] [facility] [address] [id number] [place] [address] Feb, [facility] [place] [facility] [address] [id number] [place] [address] Feb, [facility] [place] [facility] [address] [id number] [place] [address] Feb, [facility] [place] [facility] [address] [id number] [place] [address]- [address] Feb, [facility] [place] [facility] [address] [id number] [place] [address] Feb, [facility] [place] [facility] [address] [id number] [place] [address] Feb, [facility] [place] [facility] [address] [id number] [place] [address] Feb, [facility] [place] [facility] [address] [id number] [place] [address] 113[address] Feb, [facility] [place] [facility] [address] [id number] [place] [address] Feb, [facility] [place] [facility] [address] [id number] [place] [address] Feb, [facility] [address] [id number] [place] [address] January, [facility] [place] [facility] [address] [id number] [place] [address] January, [facility] [place] [facility] [address] [id number] [place] [address]- [address] January, [facility] [place] [facility] [address] [id number] [place] [address]- [address] January, [facility] [place] [facility] [address] [id number] [place] [address] January, [facility] [place] [facility] [address] [id number] [place] [address] 65[address] January, [facility] [place] [facility] [address] [id number] [place] [address]- [address] January, [facility] [place] [facility] [address] [id number] [place] [address]- [address] January, [facility] [place] [facility] [address] [id number] [place] [address]- 8087 January, [facility] [place] [facility] [address] [id number] [place] [address]- 84[address] January, [facility] [place] [facility] [address] [id number] [place] [address] January, [facility] [place] [facility] [address] [id number] [place] [address]- [address] January, [facility] [place] [facility] [address] [id number] [place] [address]- [address] January, [facility] [place] [facility] [address] [id number] [place] [address]- 49[address] January, [facility] [place] [facility] [address] [id number] [place] [address]- [address] Dec, [facility] [place] [facility] [address] [id number] [place] [address] Dec, [facility] [place] [facility] [address] [id number] [place] [address]- [address] Dec, [facility] [place] [facility] [address] [id number] [place] [address]- 2711 Dec, [facility] [place] [facility] [address] [id number] [place] [address]- [address] Dec, [facility] [place] [facility] [address] [id number] [place] [address]- 66[address] Dec, [facility] [place] [facility] [address] [id number] [place] [address]- [address] Dec, [facility] [place] [facility] [address] [id number] [place] [address]- [address]289 Dec, [facility] [place] [facility] [address] [id number] [place] [address]- 134[address] Dec, [facility] [place] [facility] [address] [id number] [place] [address]- [address] Dec, [facility] [place] [facility] [address] [id number] [place] [address]- [address] Nov, [facility] [place] [facility] [address] [id number] [place] [address]- 1531 Nov, [facility] [place] [facility] [address] [id number] [place] [address]- [address] Nov, [facility] [place] [facility] [address] [id number] [place] [address] Nov, [facility] [place] [facility] [address] [id number] [place] [address] 2127 Nov, [facility] [place] [facility] [address] [id number] [place] [address] 0743 Nov, [facility] [place] [facility] [address] [id number] [place] [address]- 5367 Nov, [facility] [place] [facility] [address] [id number] [place] [address] 1913 Nov, [facility] [place] [facility] [address] [id number] [place] [address] 4516 Nov, [facility] [place] [facility] [address] [id number] [place] [address] 2586 Nov, [facility] [place] [facility] [address] [id number] [place] [address]- 3922 Oct, [facility] [place] [facility] [address] [id number] [place] [address] 8017 Oct, [facility] [place] [facility] [address] [id number] [place] [address] 8100 Oct, [facility] [place] [facility] [address] [id number] [place] [address]- 6362 Oct, [facility] [place] [facility] [address] [id number] [place] [address]- 1691 Oct, [facility] [place] [facility] [address] [id number] [place] [address]- 2622 Oct, [facility] [place] [facility] [address] [id number] [place] [address]- 0260 Oct, [facility] [place] [facility] [address] [id number] [place] [address]- 8922 Oct, [facility] [place] [facility] [address] [id number] [place] [address]- 8288 Oct, [facility] [place] [facility] [address] [id number] [place] [address]- 8105 Oct, [facility] [place] [facility] [address] [id number] [place] [address]- 9439 Oct, [facility] [place] [facility] [address] [id number] [place] [address]- 3647 Oct, [facility] [place] [facility] [address] [id number] [place] [address]- 6154 Oct, [facility] [address] [id number] [place] [address] 3917 Oct, [facility] [address] [id number] [place] [address]- 3612 Sep, [facility] [address] [id number] [place] [address]- 8424 Sep, [facility] [address] [id number] [place] [address]- 7438 Sep, [facility] [address] [id number] [place] [address]- 4909 Sep, [facility] [address] [id number] [place] [address]- 2430 Sep, [facility] [address] [id number] [place] [address]- 1819 Sep, [facility] [address] [id number] [place] [address]- 3112 Sep, [facility] [address] [id number] [place] [address]- 8655 Sep, [facility] [address] [id number] [place] [address]- 7267 Sep, [facility] [address] [id number] [place] [address]- 8836 Sep, [facility] [address] [id number] [place] [address]- 3467 Aug, [facility] [place] [facility] [address] [id number] [place] [address]- 7589 Aug, [facility] [address] [id number] [place] [address]- 1408 Jul, [facility] [address] [id number] [place] [address] Jul, [facility] [place] [facility] [address] [id number] [place] [address]- 5243 Jul, [facility] [place] [facility] [address] [id number] [place] [address]- 2493 Jul, [facility] [place] [facility] [address] [id number] [place] [address]- 8966 Jul, [facility] [place] [facility] [address] [id number] [place] [address]- 4765 Jul, [facility] [place] [facility] [address] [id number] [place] [address]- 7088 Jul, [facility] [place] [facility] [address] [id number] [place] [address]- 2688 Jul, [facility] [place] [facility] [address] [id number] [place] [address]- 5366 Jul, [facility] [place] [facility] [address] [id number][place] [address]- 7100 Jul, [facility] [place] [facility] [address] [id number][place] [address]- 9198 Jul, [facility] [place] [facility] [address] [id number], [place] [address]- 3948 Jul, [facility] [place] [facility] [address] [id number], [place] [address]- 1792 Jul, [facility] [place] [facility] [address] [id number], [place] [address]- 0452 Jul, [facility] [place] [facility] [address] [id number], [place] [address]- 1990 Jul, [facility] [place] [facility] [address] [id number], [place] [address]- 8494 Jul, [facility] [place] [facility] [address] [id number][place] [address]- 7690 Jul, [facility] [place] [facility] [address] [id number], [place] [address] 2540 Jul, 2012 [facility] [place] [facility] [address] [id number] [place] [address]- 5676 Jul, 2012 [facility] [place] [facility] [address] [id number], [place] [address]- 7462 Jun, 2012 [facility] [place] [facility] [address] [id number] [place] [address]- 4764 Jun, 2012 [facility] [place] [facility] [address] [id number] [place] [address]- 4759 Jun, 2012 [facility] [place] [facility] [address] [id number] [place] [address]- 3221 Jun, 2012 [facility] [place] [facility] [address] [id number] [place] [address]- 5499 Jun, 2012 [facility] [place] [facility] [address] [id number][place] [address]- 7638 Jun, 2012 [facility] [place] [facility] [address] [id number][place] [address]- 0384 Jun, 2012 [facility] [place] [facility] [address] [facility] [id number][place] [address]- 4674 Jun, 2012 [facility] [place] [facility] [address] [facility] [id number], [place] [address]- 9143 Jun, [facility] [place] [facility] [address] [id number][place] [address]- 9693 Jun, 2012 [facility] [place] [facility] [address] [id number], [place] [address]- 2839 Jun, [facility] [place] [facility] [address] [id number], [place] [address]- 0320 May, 2012 [facility] [place] [facility] [address] [facility] [id number], [place] [address]- 6850 25 May, 2012 [facility] [place] [facility] [address] [id number], [place] [address]- 7945 19 May, 2012 [facility] [place] [facility] [address] [id number] [place] [address]- 6298 17 May, 2012 [facility] [place] [facility] [address] [id number] [place] [address]- 8866 11 May, 2012 [facility] [place] [facility] [address] [id number] [place] [address] 2546 10 May, 2012 [facility] [place] [facility] [address] [id number] [place] [address] 2546 09 May, 2013 [facility] [place] [facility] [address] [id number] [place] [address] 2543 05 May, 2013 [facility] [place] [facility] [address] [id number] [place] [address]- 9101 Apr, [facility] [place] [facility] [address] [id number] [place] [address]- 3624 Apr, [facility] [place] [facility] [address] [id number] [place] [address]- 1790 Apr, [facility] [place] [facility] [address] [id number] [place] [address]- 2179 Apr, [facility] [place] [facility] [address] [id number] [place] [address]- 8620 Apr, [facility] [place] [facility] [address] [id number] [place] [address]- 9372 Mar, [facility] [place] [facility] [address] [id number] [place] [address]- 8038 Mar, [facility] [place] [facility] [address] [id number] [place] [address]- 6556 Mar, [facility] [place] [facility] [address] [id number] [place] [address]- 7877 Mar, [facility] [place] [facility] [address] [id number] [place] [address]- 3734 Mar, [facility] [place] [facility] [address] [id number] [place] [address]- 5008 Mar, [facility] [address] [id number] [place] [address]- 3983 Mar, [facility] [place] [facility] [address] [id number] [place] [address]- 7267 Mar, [facility] [address] [id number] [place] [address]- 1120 Feb, [facility] [place] [facility] [address] [id number] [place] [address]- 6817 Feb, [facility] [address] [id number] [place] [address]- 7006 January, [facility] [address] [id number] [place] [address]- 9524 January, [facility] [address] [id number] [place] [address]- 4527 Dec, [facility] [place] [facility] [address] [id number] [place] [address]- 5924 Dec, [facility] [address] [id number] [place] [address]- 2823 Nov, [facility] [place] [facility] [address] [id number] [place] [address]- 6331 Nov, [facility] [place] [facility] [address] [id number], [place] [address]- 3330 Nov, [facility] [place] [facility] [address] [id number], [place] [address]- 0237 Nov, [facility] [place] [facility] [address] [id number] [place] [address]- 5669 Oct, [facility] [place] [facility] [address] [id number] [place] [address]- 5067 Oct, [facility] [place] [facility] [address] [id number] [place] [address]- 5953 Oct, [facility] [place] [facility] [address] [id number] [place] [address]- 7357 26 Oct, 2012 [facility] [address] [id number] [place] [address]- 9816 16 Oct, 2012 [facility] [address] [id number] [place] [address] 2546 14 Oct, 2012 [facility] [address] [id number] [place] [address] 2546 08 Oct, 2012 [facility] [address] [id number] [place] [address] 2547 07 Oct, 2012 [facility] [address] [id number] [place] [address] 2546 03 Oct, 2012 [facility] [address] [id number] [place] [address]- 9191 30 Sep, 2012 [facility] [address] [id number] [place] [address]- 2835 29 Sep, 2012 [facility] [address] [id number] [place] [address]- 9945 Sep, [facility] [address] [id number] [place] [address]- 5554 Sep, [facility] [address] [id number] [place] [address]- 2215 17 Sep, 2012 [facility] [address] [id number] [place] [address]- 0345 Sep, [facility] [address] [id number] [place] [address] 2549 09 Sep, 2012 [facility] [place] [facility] [address] [id number] [place] [address] 2543 08 Sep, 2012 [facility] [place] [facility] [address] [id number] [place] [address] 2542 31 Aug, 2012 [facility] [place] [facility] [address] [id number] [place] [address]- 9218 Aug, [facility] [place] [facility] [address] [id number] [place] [address]- 7540 Aug, [facility] [place] [facility] [address] [id number] [place] 5286 Aug, [facility] [place] [facility] [address] [facility] [id number] [place] 2199 Aug, [facility] [place] [facility] [address] [id number] [place] 2226 Aug, [facility] [place] [facility] [address] [id number] [place] [address]- 1475 Aug, [facility] [place] [facility] [address] [id number] [place] [address]- 4273 Aug, [facility] [place] [facility] [address] [id number] [place] [address]- 5912 Jul, [facility] [place] [facility] [address] [id number], [place] [address]- 0380 Jul, [facility] [place] [facility] [address] [id number], [place] [address]- 7828 Jul, [facility] [place] [facility] [address] [id number], [place] [address]- 1090 Jul, [facility] [place] [facility] [address] [id number], [place] [address]- 7022 Jul, [facility] [place] [facility] [address] [id number], [place] [address]- 9887 Jul, [facility] [place] [facility] [address] [id number], [place] [address]- 0866 Jun, [facility] [place] [facility] [address] [id number], [place] [address]- 4677 Jun, [facility] [place] [facility] [address] [facility] [id number], [place] [address]- 9626 Jun, [facility] [place] [facility] [address] [id number] [place] [address]- 8712 23 Jun, 2012 [facility] [place] [facility] [address] [id number] [place] [address]- 9160 Jun, [facility] [place] [facility] [address] [id number] [place] [address]- 5006 Jun, [facility] [place] [facility] [address] [id number] [place] [address]- 1228 Jun, [facility] [place] [facility] [address] [id number] [place] [address]- 1197 Jun, [facility] [place] [facility] [address] [id number] [place] [address]- 1216 10 Jun, 2012 [facility] [place] [facility] [address] [id number] [place] [address]- 5856 26 May, 2012 [facility] [place] [facility] [address] [id number] [place] [address]- 3325 24 May, 2012 [facility] [place] [facility] [address] [id number] [place] [address]- 8278 18 May, 2012 [facility] [place] [facility] [address] [id number] [place] [address]- 0805 30 Apr, 2012 [facility] [place] [facility] [address] [id number] [place] [address]- 5045 29 Apr, 2012 [facility] [place] [facility] [address] [id number] [place] [address] 2544 Apr, [facility] [place] [facility] [address] [id number] [place] [address]- 9036 14 Apr, 2012 [facility] [place] [facility] [address] [id number] [place] [address]- 5711 Apr, [facility] [place] [facility] [address] [id number] [place] [address]- 1294 Apr, [facility] [place] [facility] [address] [id number] [place] [address]- 7303 Mar, [facility] [place] [facility] [address] [id number] [place] [address]- 3504 Mar, [facility] [place] [facility] [address] [id number] [place] [address]- 7446 Mar, [facility] [address] [id number] [place] [address]- 7210 Mar, [facility] [place] [facility] [address] [id number] [place] [address]- 7201 Feb, [facility] [address] [id number] [place] [address]- 1076 Feb, [facility] [address] [id number] [place] [address]- 3954 Feb, [facility] [address] [id number] [place] [address]- 0056 Feb, [facility] [address] [id number] [place] [address]- 5624 Feb, [facility] [address] [id number] [place] [address]- 4382 January, [facility] [address] [id number] [place] [address]- 1075 January, [facility] [address] [id number] [place] [address]- 0847 January, [facility] [place] [facility] [address] [id number] [place] [address]- 7676 January, [facility] [place] [facility] [address] [id number] [place] [address]- 8953 January, [facility] [place] [facility] [address] [id number] [place] [address]- 3986 January, [facility] [place] [facility] [address] [id number] [place] [address]- 1098 Dec, [facility] [place] [facility] [address] [id number], [place] [address]- 1391 24 Dec, 2011 [facility] [address] [id number] [place] [address]- 1303 17 Dec, 2011 [facility] [place] [facility] [address] [id number] [place] [address]- 4366 09 Dec, 2011 [facility] [place] [facility] [address] [facility] [id number] [place] [address]- 0306 06 Dec, 2011 [facility] [place] [facility] [address] [id number] [place] [address]- 1676 27 Nov, 2011 [facility] [place] [facility] [address] [id number] [place] [address]- 6425 14 Nov, 2011 [facility] [place] [facility] [address] [id number] [place] [address]- 1521 Nov, [facility] [address] [id number] [place] [address]- 7310 Nov, [facility] [place] [facility] [address] [id number] [place] [address]- 8693 29 Oct, 2011 [facility] [place] [facility] [address] [id number] [place] [address]- 7497 28 Oct, 2011 [facility] [place] [facility] [address] [facility] [id number] [place] [address]- 4281 24 Oct, 2011 [facility] [place] [facility] [address] [id number] [place] [address]- 4410 13 Oct, 2011 [facility] [place] [facility] [address] [id number] [place] [address]- 2755 08 Oct, 2011 [facility] [place] [facility] [address] [id number] [place] [address]- 7548 Sep, [facility] [place] [facility] [address] [id number] [place] [address]- 3401 30 Sep, 2011 [facility] [place] [facility] [address] [facility] [id number], [place] [address]- 7819 Sep, [facility] [place] [facility] [address] [id number] [place] [address]- 3422 Sep, [facility] [place] [facility] [address] [id number] [place] [address]- 4908 Sep, [facility] [place] [facility] [address] [id number] [place] [address]- 0220 Sep, [facility] [place] [facility] [address] [id number] [place] [address]- 4530 Aug, [facility] [place] [facility] [address] [id number] [place] [address]- 7826 Aug, [facility] [place] [facility] [address] [id number] [place] [address]- 1892 Aug, [facility] [place] [facility] [address] [id number] [place] [address]- 4105 Jul, [facility] [place] [facility] [address] [id number] [place] [address]- 7758 Jul, [facility] [place] [facility] [address] [id number] [place] [address] Jul, [facility] [place] [facility] [address] [id number] [place] [address] Jul, [facility] [place] [facility] [address] [id number] [place] [address] Jun, [facility] [place] [facility] [address] [id number] [place] [address] Jun, [facility] [place] [facility] [address] [id number] [place] [address] Jun, [facility] [place] [facility] [address] [id number] [place] [address] Jun, [facility] [place] [facility] [address] [id number] [place] [address] Jun, [facility] [place] [facility] [address] [id number] [place] [address] 10 Jun, 2011 [facility] [place] [facility] [address] [id number] [place] [address] 11 Mar, 2011 [facility] [place] [facility] [address] [id number] [place] [address] 18 Dec, 2010 [facility] [place] [facility] [address] [id number] [place] [address] 11 Dec, 2010 [facility] [place] [facility] [address] [id number] [place] [address] 18 Nov, 2010 [facility] [place] [facility] [address] [id number] [place] [address] 86[address] 16 Nov, 2010 [facility] [place] [facility] [address] [id number] [place] [address] 10 Sep, 2010 [facility] [place] [facility] [address] [id number] [place] [address] 31 Aug, 2010 [facility] [place] [facility] [address] [id number] [place] [address] 29 Aug, 2010 [facility] [place] [facility] [address] [id number] [place] [address] 94[address] 29 Aug, 2010 [facility] [place] [facility] [address] [id number] [place] [address] 29 Aug, 2010 [facility] [place] [facility] [address] [id number] [place] [address] 27 Aug, 2010 [facility] [place] [facility] [address] [id number] [place] [address]46 14 Aug, 2010 [facility] [place] [facility] [address] [id number] [place] [address] 2546 08 Aug, 2010 [facility] [place] [facility] [address] [id number] [place] [address] 08 Aug, 2010 [facility] [place] [facility] [address] [id number] [place] [address] 07 Aug, 2010 [facility] [place] [facility] [address] [id number] [place] [address] Aug, [facility] [address] [id number] [place] [address] Aug, [facility] [place] [facility] [address] [id number] [place] [address] 25[address] Aug, [facility] [address] [id number] [place] [address] Jul, [facility] [place] [facility] [address] [id number] [place] [address] 25[address] Jul, [facility] [address] [id number] [place] [address], [place] [address] Jul, [facility] [address] [id number] [place] [address] Jul, [facility] [address] [facility] [id number] [place] [address] Jul, [facility] [address] [id number] [place] [address] Jul, [facility] [place] [facility] [address] [id number] [place] [address] 24 Jun, 2010 [facility] [address] [facility] [id number] [place] [address] Jun, [facility] [place] [facility] [address] [id number] [place] [address] 25[address] Jun, [facility] [place] [facility] [address] [id number] [place] [address] Jun, [facility] [place] [facility] [address] [id number] [place] [address]- [address] 16 Apr, 2010 [facility] [place] [facility] [address] [id number] [place] [address] 2546 Mar, [facility] [place] [facility] [address] [id number] [place] [address] Feb, [facility] [place] [facility] [address] [id number] [place] [address] 8[address] 11 Jan, 2010 [facility] [place] [facility] [address] [id number] [place] [address] 15 Dec, 2009 [facility] [place] [facility] [address] [id number] [place] [address] Nov, [facility] [place] [facility] [address] [id number] [place] [address] Aug, [facility] [address] [id number] [place] [address] 25[address] Aug, [facility] [place] [facility] [address] [id number] [place] [address]397 Aug, [facility] [place] [facility] [address] [facility] [id number] [place] [address] Jul, [facility] [place] [facility] [address] [id number], [place] [address] Jul, [facility] [place] [facility] [address] [facility] [id number], [place] [address] Jul, [facility] [place] [facility] [address] [facility] [id number], [place] [address] 30 Jun, 2009 [facility] [place] [facility] [address] [facility] [id number], [place] [address] 29 Jun, 2009 [facility] [place] [facility] [address] [id number][place] [address] Jun, [facility] [facility] [address] [id number][place] [address] Jun, [facility] [address] [id number], [place] [address] Jun, [facility] [address] [facility] [id number][place] [address] Jun, [facility] [address] [id number][place] [address] Apr, [facility] [address] [facility] [id number] [place] [address] Apr, [facility] [address] [facility] [id number][place] [address] Feb, [facility] [address] [facility] [id number], [place] [address] January, [place] [address] [address] [facility] [id number] [address] [address] Dec, IMMUNIZATIONS No Known Immunizations SOCIAL HISTORY Never Assessed REASON FOR VISIT Orders from Results PLAN OF CARE VITAL SIGNS MEDICATIONS Medication Instructions Dosage Frequency Start Date End Date Duration Status Potassium Chloride [facility] 20 MEQ Orally Once a day 1 tablet with food 24h 30 days Active RESULTS No Results PROCEDURES [...] History inability to urinate 09/16/15 Hospitalization History [facility] early Hospitalization History hyperkalemia 10/2017 Hospitalization History fluid in lung
--- OUTSIDE RECORDS SUMMARY | 2018-08-08 12:33 | XMS REPORT ---
Author Author NOEMI WASHBURN Organization [facility] Address [address] [place] [address] Care Team Providers Care Patent Attorney Name Role Phone NOEMI WASHBURN Unavailable PROBLEMS Type Condition ICD9-CM Code [id number] Code Onset Dates Condition Status SNOMED Code Problem Chronic lymphocytic leukemia C91.10 Active 07918340 Problem Insomnia, unspecified type G47.00 Active 576761838 Problem Lymphocytosis D72.820 Active 79279678 Problem Anxiety F41.9 Active 68403055 Problem Eye exam abnormal R93.8 Active 998640340 Problem Morbid obesity E66.01 Active 153303144 Problem Diabetic polyneuropathy associated with type 2 diabetes mellitus E11.42 Active 55162812 Problem Essential hypertension I10 Active 40604649 Problem Falling R29.6 Active 544546147 Problem 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 Active 585776444 Problem Cough R05 Active 13338437 Problem Dysuria R30.0 Active 44001314 Problem Eustachian tube dysfunction, unspecified laterality H69.80 Active 76120425 Problem Bilateral primary osteoarthritis of knee M17.0 Active 002695536 Problem Polyneuropathy associated with underlying disease G63 Active 283656509 Problem Anemia of chronic illness D63.8 Active 169681342 Problem Retinal edema H35.81 Active 1651662 Problem DM neuro manif type II E11.49 Active 69743021 Problem Diabetes E11.9 Active 10968596 Problem Hypokalemia E87.6 Active 76466265 Problem Benign prostatic hyperplasia with lower urinary tract symptoms, unspecified morphology N40.1 Active 521371493 Problem Reactive airway disease J45.909 Active 462666357324 Problem Bipolar I disorder, most recent episode (or current) mixed, moderate F31.62 Active 10244155 Problem Chronic pain G89.29 Active 98699454 Problem Leukocytosis D72.829 Active 326359066 ALLERGIES No Information ENCOUNTERS Encounter Location Date Diagnosis [facility] [address] [address] Apr, [facility] [address] [address] 7[address] Mar, [facility] [address] [address] 0[address] Mar, [facility] [address] [address] 15[address] Mar, [facility] [address] [address] Mar, Bipolar I disorder, most recent episode (or current) mixed, moderate F31.62 [facility] [address] [address] Feb, Bipolar I disorder, most recent episode (or current) mixed, moderate F31.62 [facility] [address] [address] Feb, Chronic pain G89.29 [facility] [address] [address] Feb, Decubitus ulcer of right foot, stage 3 L89.893 and BMI 50.0- 59.9, adult Z68.43 [facility] [address], [place] [address] Feb, Bipolar I disorder, most recent episode (or current) mixed, moderate F31.62 [facility] [address], [place] [address] Feb, [facility] [address] [address] January, [facility] [address] [address] 0[address] January, Chronic pain G89.29 [facility] [address] [address] 3960 January, Bipolar I disorder, most recent episode (or current) mixed, moderate F31.62 [facility] [id number] [place] [address] 83138- 1466 January, Bipolar I disorder, most recent episode (or current) mixed, moderate F31.62 [facility] [id number] [place] [address] 26878- 7068 Dec, Bipolar I disorder, most recent episode (or current) mixed, moderate F31.62 and BMI 50.0-59.9, adult Z68.43 [facility] [id number] [place] [address] 98687- 8871 Dec, Bipolar I disorder, most recent episode (or current) mixed, moderate F31.62 [facility] [id number] [place] [address] 70139- 4416 Dec, Chronic pain G89.29 [facility] [address] [address]- 3630 Dec, DM neuro manif type II E11.49 ; Right flank pain R10.9 ; care home 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 Z79.891 ; Encounter for medication monitoring Z51.81 and BMI 50.0-59.9, adult Z68.43 [facility] [id number] [place] [address] 62910- 3162 Dec, Bipolar I disorder, most recent episode (or current) mixed, moderate F31.62 [facility] [id number] [place] [address] 50965- 9011 Nov, Bipolar I disorder, most recent episode (or current) mixed, moderate F31.62 [facility] [id number] [place] [address] 46497- 6385 Nov, Chronic pain G89.29 [facility] [id number] [place] [address] 33889- 8298 Nov, Bipolar I disorder, most recent episode (or current) mixed, moderate F31.62 [facility] [id number] [place] [address] 24986- 4118 Nov, Hypokalemia E87.6 [facility] [address]- 8566 Nov, Bipolar I disorder, most recent episode (or current) mixed, moderate F31.62 [facility] [address] 826187- 1346 Oct, Chronic pain G89.29 [facility] [address] 551465- 7350 Oct, BMI 50.0-59.9, adult Z68.43 and Bipolar I disorder, most recent episode (or current) mixed, moderate F31.62 [facility] [address] 04292- 9695 Oct, Bipolar I disorder, most recent episode (or current) mixed, moderate F31.62 [facility] [id number] [place] [address] 33614- 0053 Oct, [facility] [address] 432312- 7646 Oct, Hypokalemia E87.6 [facility] [id number] [place] [address] 37416- 5149 Oct, DM neuro manif type II E11.49 [facility] [id number] [place] [address] 75057- 3993 Oct, Bipolar I disorder, most recent episode (or current) mixed, moderate F31.62 [facility] [address] 63191- 0909 Oct, Bipolar I disorder, most recent episode (or current) mixed, moderate F31.62 [facility] [id number] [place] [address] 81394- 4759 14 Oct, 2017 Hyperkalemia E87.5 ; Falling R29.6 ; BMI 50.0-59.9, adult Z68.43 and Acute left ankle pain M25.572 [facility] [address] 55325- 5205 08 Oct, 2017 DM neuro manif type II E11.49 [facility] [address] 40215- 9327 Oct, [facility] [address] 65885- 2364 Sep, Chronic pain G89.29 [facility] [address] 46973- 6988 Sep, [facility] [address] 93544- 7185 Sep, Bilateral primary osteoarthritis of knee M17.0 [facility] [address] 90111- 6938 Sep, Generalized edema R60.1 [facility] [address] 02417- 9732 Sep, Bipolar I disorder, most recent episode (or current) mixed, moderate F31.62 [facility] [id number] [place] [address] 56990- 2817 Sep, Hypoxia R09.02 ; Other hypervolemia E87.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 ; Anemia of chronic illness D63.8 and BMI 50.0- 59.9, adult Z68.43 [facility] [address] 57320- 2185 Sep, [facility] [address] 03709- 5588 Sep, Bipolar I disorder, most recent episode (or current) mixed, moderate F31.62 [facility] [address], [place] [address] 4970 28 Aug, 2017 Chronic pain G89.29 [facility] [id number] [place] [address] 90921- 6205 Aug, Generalized edema R60.1 [facility] [id number] [place] [address] 50670- 9020 Aug, [facility] [id number] [place] [address] 691542- 1430 Aug, [facility] [id number] [place] [address] 99517- 3713 14 Aug, 2017 Bipolar I disorder, most recent episode (or current) mixed, moderate F31.62 [facility] [id number] [place] [address] 88379- 3321 Aug, Bipolar I disorder, most recent episode (or current) mixed, moderate F31.62 [facility] [id number] [place] [address] 57862- 4794 04 Aug, 2017 Chronic pain G89.29 [facility] [id number] [place] [address] 96517- 5468 30 Jul, 2017 Bipolar I disorder, most recent episode (or current) mixed, moderate F31.62 [facility] [address] [place] [address] 95158- 5988 Jul, Bipolar I disorder, most recent episode (or current) mixed, moderate F31.62 and BMI 60.0-69.9, adult Z68.44 [facility] [address] [place] [address] 68076- 4407 16 Jul, 2017 Bipolar I disorder, most recent episode (or current) mixed, moderate F31.62 [facility] [address], [place] [address]- 7058 06 Jul, 2017 Chronic pain G89.29 [facility] [id number] [place] [address] 58307- 4451 Jul, Bipolar I disorder, most recent episode (or current) mixed, moderate F31.62 [facility] [address] [place] [address] 02766- 2216 Jun, Polyneuropathy associated with underlying disease G63 and Diabetes E11.9 [facility] [id number] [place] [address] 04528- 0351 Jun, Bipolar I disorder, most recent episode (or current) mixed, moderate F31.62 [facility] [address] [place] [address] 56739- 9474 Jun, Chronic pain G89.29 [facility] [id number] [place] [address] 34902- 6486 May, Bipolar I disorder, most recent episode (or current) mixed, moderate F31.62 [facility] [id number] [place] [address] 37010- 5386 May, Bipolar I disorder, most recent episode (or current) mixed, moderate F31.62 [facility] [id number] [place] [address] 20216- 3392 20 May, 2017 Diabetic polyneuropathy associated with type 2 diabetes mellitus E11.42 [facility] [address] [place] [address] 12030- 1607 18 May, 2017 Bipolar I disorder, most recent episode (or current) mixed, moderate F31.62 [facility] [address] [place] [address] 33885- 3106 13 May, 2017 Bipolar I disorder, most recent episode (or current) mixed, moderate F31.62 [facility] [id number] [place] [address] 55951- 7212 May, Chronic pain G89.29 [facility] [address] [place] [address] 56879- 4932 Apr, Bipolar I disorder, most recent episode (or current) mixed, moderate F31.62 [facility] [address] [address]- 2245 Apr, [facility] [id number] [place] [address] 86733- 8806 Apr, Chronic pain G89.29 and DM neuro manif type II E11.49 [facility] [id number] [place] [address] 20498- 6246 Apr, [facility] [id number] [place] [address] 14962- 3673 Apr, Bipolar I disorder, most recent episode (or current) mixed, moderate F31.62 [facility] [id number] [place] [address] 50502- 1618 Apr, Chronic pain G89.29 [facility] [id number] [place] [address] 32128- 8449 Apr, Iliotibial band syndrome, left M76.32 [facility] [id number] [place] [address] 48213- 9077 Apr, Bipolar I disorder, most recent episode (or current) mixed, moderate F31.62 [facility] [id number] [place] [address] 06660- 2309 Mar, Bipolar I disorder, most recent episode (or current) mixed, moderate F31.62 [facility] [address] [place] [address] 45523- 3515 Mar, Bipolar I disorder, most recent episode (or current) mixed, moderate F31.62 [facility] [address] [place] [address] 53331- 5867 Mar, [facility] [id number] [place] [address] 30423- 2552 Mar, Bipolar I disorder, most recent episode (or current) mixed, moderate F31.62 [facility] [address] [place] [address] 48432- 7417 Mar, Chronic pain G89.29 [facility] [address], [place] [address]- 3875 Mar, Bipolar I disorder, most recent episode (or current) mixed, moderate F31.62 [facility] [address], [place] [address]- 2906 Mar, Bipolar I disorder, most recent episode (or current) mixed, moderate F31.62 [facility] [id number] [place] [address] 88110- 6661 Mar, Acute pain of left knee M25.562 ; Left hip pain M25.552 ; Generalized edema R60.1 and Tongue swelling R22.0 [facility] [id number] [place] [address] 98284- 9541 Mar, [facility] [id number] [place] [address] 02866- 1839 Feb, Chronic pain G89.29 [facility] [id number] [place] [address] 98174- 2439 Feb, Diabetes E11.9 [facility] [id number] [place] [address] 34427- 3249 January, Chronic pain G89.29 [facility] [address] [place] [address] 77384- 9799 January, [facility] [id number] [place] [address] 16505- 9519 January, Bipolar I disorder, most recent episode (or current) mixed, moderate F31.62 [facility] [id number] [place] [address] 53706- 7294 Dec, Bipolar I disorder, most recent episode (or current) mixed, moderate F31.62 [facility] [address], [place] [address]- 1475 Dec, Chronic pain G89.29 [facility] [address] [address]- 6833 Dec, Bipolar I disorder, most recent episode (or current) mixed, moderate F31.62 [facility] [id number] [place] [address] 60408- 1539 Dec, Diabetes E11.9 ; Essential hypertension I10 ; Chronic pain G89.29 and Morbid obesity E66.01 [facility] [id number] [place] [address] 71203- 7651 Dec, [facility] [id number] [place] [address] 18720- 9081 Dec, Bipolar I disorder, most recent episode (or current) mixed, moderate F31.62 [facility] [id number] [place] [address] 49815- 7241 Dec, Bipolar I disorder, most recent episode (or current) mixed, moderate F31.62 [facility] [id number] [place] [address] 82009- 5205 Nov, Chronic pain G89.29 [facility] [id number] [place] [address] 61891- 7200 Nov, Bipolar I disorder, most recent episode (or current) mixed, moderate F31.62 [facility] [id number] [place] [address] 42137- 4120 Nov, [facility] [id number] [place] [address] 80254- 6485 Nov, Bipolar I disorder, most recent episode (or current) mixed, moderate F31.62 [facility] [id number] [place] [address] 79324- 6070 Nov, Bipolar I disorder, most recent episode (or current) mixed, moderate F31.62 [facility] [address] [place] [address] 82414- 5075 Nov, [facility] [id number] [place] [address] 25919- 9291 Nov, [facility] [address], [place] [address]- 0894 Nov, [facility] [id number] [place] [address] 62515- 7700 Oct, Chronic pain G89.29 [facility] [address] [place] [address] 00137- 8021 Oct, Bipolar I disorder, most recent episode (or current) mixed, moderate F31.62 [facility] [address] [place] [address] 78047- 5570 Oct, [facility] [id number] [place] [address] 23006- 6276 Oct, Chronic pain G89.29 ; Diabetes E11.9 ; Anxiety F41.9 and 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 [facility] [id number] [place] [address] 51645- 2954 Oct, [facility] [address] [place] [address] 71312- 9156 Oct, Diabetes E11.9 [facility] [address] [place] [address] 06668- 7644 Oct, Bipolar I disorder, most recent episode (or current) mixed, moderate F31.62 [facility] [address], [place] [address]- 0910 Sep, Chronic pain G89.29 [facility] [address], [place] [address]- 5273 Sep, Chronic pain G89.29 [facility] [id number] [place] [address] 42671- 4585 Aug, Chronic pain G89.29 [facility] [address] [place] [address] 73423- 6018 Jul, [facility] [id number] [place] [address] 02942- 4409 Jul, Diabetes E11.9 [facility] [id number] [place] [address] 34878- 7039 Jul, Chronic pain G89.29 [facility] [address] [place] [address] 80548- 7997 Jul, Bipolar I disorder, most recent episode (or current) mixed, moderate F31.62 [facility] [id number] [place] [address] 00860- 7054 Jun, Bipolar I disorder, most recent episode (or current) mixed, moderate F31.62 [facility] [id number] [place] [address] 28022- 3515 Jun, [facility] [id number] [place] [address] 79586- 4223 Jun, Bipolar I disorder, most recent episode (or current) mixed, moderate F31.62 [facility] [id number] [place] [address] 85768- 1515 30 May, 2016 Insomnia, unspecified type G47.00 [facility] [id number] [place] [address] 99702- 2354 May, Bipolar I disorder, most recent episode (or current) mixed, moderate F31.62 [facility] [id number] [place] [address] 27235- 1785 14 May, 2016 [facility] [id number] [place] [address] 15645- 4110 08 May, 2016 Bipolar I disorder, most recent episode (or current) mixed, moderate F31.62 [facility] [id number] [place] [address] 58865- 1609 06 May, 2016 Diabetes E11.9 and Essential hypertension I10 [facility] [id number] [place] [address] 80472- 4884 Apr, Chronic pain G89.29 [facility] [address] [address]- 2436 Apr, Bipolar I disorder, most recent episode (or current) mixed, moderate F31.62 [facility] [address] [place] [address] 40353- 9543 Apr, [facility] [id number] [place] [address] 70549- 7686 Apr, [facility] [id number] [place] [address] 17085- 4183 Mar, Chronic pain G89.29 ; Headache, unspecified headache type R51 ; Neuropathy G62.9 ; Pain of right hip joint M25.551 and Essential hypertension I10 [facility] [address] [place] [address] 82488- 3445 Mar, Chronic pain G89.29 [facility] [id number] [place] [address] 75114- 8425 Mar, Bipolar I disorder, most recent episode (or current) mixed, moderate F31.62 [facility] [id number] [place] [address] 88863- 1208 Feb, Bipolar I disorder, most recent episode (or current) mixed, moderate F31.62 and Insomnia, unspecified type G47.00 [facility] [address] [place] [address] 16973- 1558 Feb, Chronic pain G89.29 [facility] [id number] [place] [address] 83071- 9571 Feb, Bipolar I disorder, most recent episode (or current) mixed, moderate F31.62 [facility] [id number] [place] [address] 82937- 2821 January, Bipolar I disorder, most recent episode (or current) mixed, moderate F31.62 [facility] [id number] [place] [address] 96514- 4247 January, Chronic pain G89.29 [facility] [id number] [place] [address] 56925- 0088 January, Chronic pain G89.29 and Essential hypertension I10 [facility] [id number] [place] [address] 28088- 4466 January, Bipolar I disorder, most recent episode (or current) mixed, moderate F31.62 [facility] [address] 27887- 2873 Dec, [facility] [address] 73958- 4085 Dec, [facility] [address] 05174- 6472 Dec, [facility] [address] 23627- 3435 Dec, [facility] [address] 73082- 3356 Nov, Reactive airway disease J45.909 [facility] [address] 87724- 1430 Nov, [facility] [id number] [place] [address] 69914- 9586 Nov, [facility] [id number] [place] [address] 89251- 8207 Nov, [facility] [id number] [place] [address] 96413- 2213 Nov, [facility] [address] 61449- 1212 Nov, Onychomycosis B35.1 ; Hammertoe M20.40 ; [place] or callus L84 and DM neuro manif type II E11.49 [facility] [id number] [place] [address] 28356- 7256 15 Nov, 2015 Chronic pain G89.29 ; Leukocytosis D72.829 and Diabetes E11.9 [facility] [id number] [place] [address] 63819- 8315 Nov, [facility] [id number] [place] [address] 83684- 8146 Oct, Bronchitis J40 [facility] [facility] [id number] [place] [address] 56025- 2272 Oct, [facility] [address] [address]- 7949 Oct, [place] [address] [address]- [address]47 Oct, Mastoiditis, unspecified laterality H70.90 and Type 2 diabetes mellitus with complication E11.8 [facility] [facility] [id number] [place] [address] 18393- 2858 Sep, [facility] [id number] [place] [address] 84006- 2668 Sep, Dysuria R30.0 ; Cough R05 ; Benign prostatic hyperplasia with lower urinary tract symptoms, unspecified morphology N40.1 ; Hypokalemia E87.6 and Eustachian tube dysfunction, unspecified laterality H69.80 [facility] [id number] [place] [address] 64622- 0502 Sep, Moderate mixed bipolar I disorder F31.62 [facility] [id number] [place] [address] 89868- 3697 Sep, Hypokalemia E87.6 [facility] [id number] [place] [address] 16438- 5957 Sep, [facility] [id number] [place] [address] 91974- 7717 Sep, Upper respiratory tract infection, unspecified type J06.9 [facility] [id number] [place] [address] 83520- 6833 Aug, [facility] [address] [address] Aug, Dysuria R30.0 [facility] [address] [address] Aug, [facility] [address]005[address] [address] Jul, [facility] [id number] [place] [address] 979108- 8578 Jul, [facility] [address], [place] [address] Jul, [facility] [id number] [place] [address] 203752- 1777 Jul, [facility] [id number] [place] [address] 16504- 7878 Jun, [facility] [id number] [place] [address] 06436- 0567 Jun, [facility] [id number] [place] [address] 56436- 6662 Jun, [facility] [address], [place] [address] 56[address] May, [facility] [address], [place] [address] 0[address] May, Bipolar I disorder, most recent episode (or current) mixed, moderate 296.62 [facility] [address] [address] 4537 16 May, 2015 [facility] [address] [address] 02 May, 2015 Bipolar I disorder, most recent episode (or current) mixed, moderate 296.62 and Major depressive disorder, recurrent episode, severe, specified as with psychotic behavior 296.34 [facility] [address], [place] [address]- 5411 May, Bipolar I disorder, most recent episode (or current) mixed, moderate 296.62 [facility] [id number] [place] [address] 861614- 5606 May, [facility] [id number] [place] [address] 62026- 1624 Apr, [facility] [id number] [place] [address] 50212- 6727 Apr, [facility] [id number] [place] [address] 04705- 3146 Apr, Unspecified disorder of kidney and ureter 593.9 and Diabetes mellitus type 2, uncontrolled 250.02 [facility] [id number] [place] [address] 59393- 5985 Apr, [facility] [id number] [place] [address] 29838- 5206 Apr, [facility] [id number] [place] [address] 81492- 1319 Apr, [facility] [id number] [place] [address] 78746- 7879 Apr, [facility] [id number] [address]- 0057 Apr, Diabetes mellitus type II, uncontrolled 250.02 [facility] [address], [place] [address]- 8392 Apr, [facility] [id number] [place] [address] 05154- 7051 Mar, [facility] [id number] [place] [address] 41454- 5963 Mar, [facility] [address], [place] [address]- 4137 Mar, [facility] [id number] [place] [address] 06755- 6389 Mar, Major depressive disorder, recurrent episode, severe, specified as with psychotic behavior 296.34 and Bipolar I disorder, most recent episode (or current) mixed, moderate 296.62 [facility] [id number] [place] [address] 15837- 8768 Mar, Diabetes 250.00 ; Anuria 788.5 ; Nausea and vomiting 787.01 and Diarrhea 787.91 [facility] [id number] [place] [address] 49340- 6322 Mar, Diabetes 250.00 [facility] [id number] [place] [address] 25426- 6035 Mar, [facility] [id number] [place] [address] 91613- 4820 Mar, Diabetes 250.00 [facility] [id number] [place] [address] 61160- 9051 Mar, [facility] [id number] [place] [address] 98977- 8105 Mar, [facility] [id number] [place] [address] 61693- 3822 Mar, [facility] [id number] [place] [address] 88856- 1396 Mar, [facility] [id number] [place] [address] 67457- 0118 Mar, Bipolar I disorder, most recent episode (or current) mixed, moderate 296.62 and Major depressive disorder, recurrent episode, severe, specified as with psychotic behavior 296.34 [facility] [id number] [place] [address] 07737- 4398 Mar, Magnesium deficiency 275.2 ; Hypokalemia 276.8 ; Nausea & vomiting 787.01 and Diabetes mellitus type 2, uncontrolled 250.02 [facility] [address], [place] [address]- 6588 Feb, [facility] [id number] [place] [address] 02293- 4390 Feb, Bipolar I disorder, most recent episode (or current) mixed, moderate 296.62 [facility] [id number] [place] [address] 30559- 9517 Feb, Nausea and vomiting 787.01 ; Left elbow pain 719.42 ; Anuria 788.5 and Diabetes 250.00 [facility] [address] [address]- 9843 Feb, [facility] [address] [address]- 1800 Feb, Hypopotassemia 276.8 and Hypokalemia 276.8 [facility] [id number] [place] [address] 63339- 7386 Feb, Hypopotassemia 276.8 and Hypokalemia 276.8 [facility] [id number] [place] [address] 96308- 8389 Feb, Seborrheic keratoses 702.19 [facility] [id number] [place] [address] 30203- 1948 Feb, Hypopotassemia 276.8 and Low magnesium levels 275.2 [facility] [id number] [place] [address] 13939- 0427 January, [facility] [id number] [place] [address] 59221- 1942 January, [facility] [id number] [place] [address] 14616- 4680 January, [facility] [id number] [place] [address] 22697- 5165 January, Scalp lesion 709.9 [facility] [id number] [place] [address] 56680- 0545 January, [facility] [address] 01758- 0208 30 Dec, 2014 Tear of medial cartilage or meniscus of knee, current 836.0 and 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 [facility] [address] [id number] [place] [address]- 0706 Dec, [facility] [address] [id number], [place] [address]- 8206 Dec, [facility] [address] [facility] [id number], [place] [address] 2546 Dec, Squamous cell carcinoma, 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 [facility] [address] [id number] [place] [address]- 7686 14 Dec, 2014 [facility] [id number], [place] [address]- 8804 Dec, [facility] [id number], [place] [address]- 4612 Nov, [facility] [address] [facility] [id number], [place] [address]- 7971 Nov, [facility] [address] [facility] [id number], [place] [address]- 0930 Nov, [facility] [address] [facility] [id number], [place] [address]- 8228 Nov, [facility] [id number], [place] [address]- 3226 Nov, [facility] [address] [facility] [id number] 4261 Nov, [facility] [address] [facility] [id number] 7836 Nov, [facility] [address] [facility] [id number] 3342 Nov, [facility] [address] [facility] [id number]- 2386 Nov, [facility] [address] [id number] [place] [address]- 6186 Nov, [facility] [place] [facility] [address] [id number] [place] [address]- 1402 Nov, [facility] [place] [facility] [address] [id number] [place] [address]- 5046 Nov, [facility] [place] [facility] [address] [id number] [place] [address]- 2600 Oct, 2014 [facility] [place] [facility] [address] [id number] [place] [address]- 4274 Oct, 2014 [facility] [place] [facility] [address] [id number] [place] [address]- 7417 Oct, 2014 [facility] [place] [facility] [address] [facility] [id number] [place] [address]- 5696 Oct, 2014 [facility] [place] [facility] [address] [facility] [id number] [place] [address]- 0792 Oct, 2014 [facility] [place] [facility] [address] [facility] [id number] [place] [address]- 7040 Oct, [facility] [place] [facility] [address] [facility] [id number] [place] [address]- 2765 Oct, [facility] [place] [facility] [address] [facility] [id number] [place] [address]- 1111 Oct, [facility] [place] [facility] [address] [facility] [id number], [place] [address]- 7921 Oct, [facility] [place] [facility] [address] [facility] [id number] [place] [address]- 1682 Sep, [facility] [place] [facility] [address] [id number] [place] [address]- 3863 Sep, [facility] [place] [facility] [address] [facility] [id number] [place] [address]- 4886 Sep, [facility] [place] [facility] [address] [facility] [id number], [place] [address]- 5995 Sep, [facility] [place] [facility] [address] [id number] [place] [address]- 3110 Sep, [facility] [place] [facility] [address] [id number] [place] [address]- 5236 Sep, [facility] [place] [facility] [address] [id number] [place] [address]- 6185 Sep, [facility] [place] [facility] [address] [id number] [place] [address]- 1987 Sep, [facility] [place] [facility] [address] [id number] [place] [address]- 6296 Sep, [facility] [place] [facility] [address] [id number] [place] [address]- 3336 Sep, [facility] [place] [facility] [address] [id number] [place] [address]- 6783 Sep, [facility] [place] [facility] [address] [id number] [place] [address]- 3723 Sep, [facility] [place] [facility] [address] [id number] [place] [address]- 3572 Sep, [facility] [place] [facility] [address] [id number] [place] [address]- 5419 Sep, [facility] [place] [facility] [address] [id number] [place] [address]- 0644 Sep, [facility] [place] [facility] [address] [id number] [place] [address]- 1947 Sep, [facility] [place] [facility] [address] [id number] [place] [address]- 6548 Aug, [facility] [place] [facility] [address] [id number] [place] [address]- 9188 Aug, [facility] [place] [facility] [address] [id number] [place] [address]- 8563 Aug, [facility] [place] [facility] [address] [id number] [place] [address]- 6462 Aug, [facility] [address] [id number] [place] [address]- 8843 Aug, [facility] [address] [id number] [place] [address]- 6050 Aug, [facility] [address] [id number] [place] [address]- 7926 Aug, [facility] [address] [id number] [place] [address]- 8332 Aug, [facility] [address] [id number] [place] [address]- 5845 Aug, [facility] [address] [id number] [place] [address]- 8318 Aug, [facility] [address] [id number] [place] [address]- 7445 Aug, [facility] [address] [place] [id number] Aug, [facility] [address] [id number] [place] [address]- 2086 Aug, [facility] [address] [id number] [place] [address]- 2837 Aug, [facility] [address] [id number] [place] [address]- 3045 Aug, [facility] [address] [id number] [place] [address]- 1658 Aug, [facility] [address] [id number] [place] [address]- 6863 Aug, [facility] [address] [id number] [place] [address]- 1442 Aug, [facility] [address] [id number] [place] [address]- 8755 Aug, [facility] [place] [facility] [address] [id number] [place] [address]- 1763 Aug, [facility] [place] [facility] [address] [id number] [place] [address]- 2172 Aug, [facility] [place] [facility] [address] [id number] [place] [address]- 3152 Aug, [facility] [place] [facility] [address] [id number] [place] 8957 Aug, [facility] [place] [facility] [address] [id number] [place] [address]- 6163 Aug, [facility] [place] [facility] [address] [id number] [place] [address]- 7578 Aug, [facility] [place] [facility] [address] [id number] [place] [address]- 5517 Aug, [facility] [place] [facility] [address] [id number] [place] [address]- 5187 Aug, [facility] [place] [facility] [address] [id number] [place] [address]- 9334 Aug, [facility] [place] [facility] [address] [id number] [place] [address]- 2087 Aug, [facility] [place] [facility] [address] [id number] [place] [address]- 7872 Aug, [facility] [place] [facility] [address] [id number] [place] [address]- 6919 Jul, [facility] [place] [facility] [address] [id number] [place] [address]- 8913 Jul, [facility] [place] [facility] [address] [id number] [place] [address]- 9960 Jul, [facility] [place] [facility] [address] [id number] [place] 8306 Jul, [facility] [place] [facility] [address] [id number] [place] [address]- 3823 Jul, [facility] [place] [facility] [address] [id number] [place] [address]- 6373 Jul, [facility] [place] [facility] [address] [id number] [place] 4947 Jul, [facility] [place] [facility] [address] [id number] [place] 7722 Jul, [facility] [place] [facility] [address] [id number] [place] [address]- 2022 Jul, [facility] [place] [facility] [address] [id number] [place] [address]- 3362 Jul, [facility] [place] [facility] [address] [id number] [place] [address]- 1602 Jun, [facility] [place] [facility] [address] [id number] [place] [address]- 8874 Jun, [facility] [place] [facility] [address] [id number], [place] [address]- 2018 Jun, [facility] [place] [facility] [address] [id number] [place] [address]- 4808 Jun, [facility] [place] [facility] [address] [id number], [place] [address]- 7346 Jun, [facility] [place] [facility] [address] [id number], [place] [address]- 9729 Jun, [facility] [place] [facility] [address] [id number], [place] [address]- 9202 Jun, [facility] [place] [facility] [address] [id number] [place] [address]- 4388 Jun, [facility] [place] [facility] [address] [id number][place]- 0818 Jun, [facility] [place] [facility] [address] [id number][place] 5420 Jun, [facility] [place] [facility] [address] [id number] [place] [address] 254 29 Sep, 2013 [facility] [place] [facility] [address] [id number] [place] [address] 2546 29 Sep, 2013 [facility] [place] [facility] [address] [id number] [place] [address] 2546 26 Sep, 2013 [facility] [place] [facility] [address] [id number] [place] [address] 2546 26 Sep, 2013 [facility] [place] [facility] [address] [id number] [place] [address] 2546 17 Sep, 2013 [facility] [place] [facility] [address] [id number] [place] [address]- 7361 17 Sep, 2013 [facility] [place] [facility] [address] [id number] [place] [address]- 2549 15 Sep, 2013 [facility] [place] [facility] [address] [id number] [place] [address] 2541 15 Sep, 2013 [facility] [place] [facility] [address] [id number] [place] [address]- 2547 15 Sep, 2013 [facility] [place] [facility] [address] [id number] [place] [address] 2541 15 Sep, 2013 [facility] [place] [facility] [address] [id number] [place] [address] 2548 10 Sep, 2013 [facility] [place] [facility] [address] [id number] [place] [address] 2546 10 Sep, 2013 [facility] [place] [facility] [address] [id number] [place] [address] 2548 09 Sep, 2013 [facility] [place] [facility] [address] [id number] [place] [address] 2546 09 Sep, 2013 [facility] [place] [facility] [address] [id number] [place] [address] 2541 04 Sep, 2013 [facility] [place] [facility] [address] [id number] [place] [address] 8965 May, [facility] [place] [facility] [address] [id number] [place] [address]- 1471 Apr, [facility] [place] [facility] [address] [id number] [place] [address]- 8037 Apr, [facility] [place] [facility] [address] [id number] [place] [address]- 2293 Apr, [facility] [place] [facility] [address] [id number] [place] [address]- 4623 Apr, [facility] [place] [facility] [address] [id number] [place] [address]- 8481 Apr, [facility] [place] [facility] [address] [id number] [place] [address]- 1795 Apr, [facility] [place] [facility] [address] [id number] [place] [address]- 9585 Apr, [facility] [place] [facility] [address] [id number] [place] [address]- 5163 Apr, [facility] [place] [facility] [address] [id number] [place] [address]- 4631 Apr, [facility] [place] [facility] [address] [id number] [place] [address]- 7266 Apr, [facility] [place] [facility] [address] [id number] [place] [address]- 9308 Apr, [facility] [place] [facility] [address] [id number] [place] [address]- 1202 Apr, [facility] [place] [facility] [address] [id number] [place] [address]- 3909 Apr, [facility] [place] [facility] [address] [id number] [place] [address]- 4768 Apr, [facility] [place] [facility] [address] [id number] [place] [address]- 9190 Apr, [facility] [place] [facility] [address] [id number] [place] [address]- 6316 Mar, 2013 [facility] [place] [facility] [address] [id number] [place] [address]- 2711 Mar, 2013 [facility] [place] [facility] [address] [id number] [place] [address]- 6755 Mar, 2013 [facility] [place] [facility] [address] [id number] [place] [address]- 0299 Mar, 2013 [facility] [place] [facility] [address] [id number] [place] [address]- 5397 Mar, 2013 [facility] [place] [facility] [address] [id number] [place] [address]- 3597 Mar, 2013 [facility] [place] [facility] [address] [id number] [place] [address]- 8632 Mar, 2013 [facility] [place] [facility] [address] [id number] [place] [address]- 6813 Mar, 2013 [facility] [place] [facility] [address] [id number] [place] [address]- 4233 Mar, 2013 [facility] [place] [facility] [address] [id number] [place] [address] Mar, 2013 [facility] [place] [facility] [address] [id number] [place] [address] Mar, 2013 [facility] [place] [facility] [address] [id number] [place] [address] Mar, 2013 [facility] [place] [facility] [address] [id number] [place] [address] Mar, 2013 [facility] [place] [facility] [address] [id number] [place] [address] Mar, 2013 [facility] [place] [facility] [address] [id number] [place] [address] Mar, 2013 [facility] [place] [facility] [address] [id number] [place] [address] Mar, 2013 [facility] [place] [facility] [address] [id number] [place] [address] Mar, [facility] [place] [facility] [address] [id number] [place] [address] Mar, [facility] [place] [facility] [address] [id number] [place] [address] Feb, [facility] [place] [facility] [address] [id number] [place] [address] Feb, [facility] [place] [facility] [address] [id number] [place] [address] Feb, [facility] [place] [facility] [address] [id number] [place] [address] Feb, [facility] [place] [facility] [address] [id number] [place] [address] Feb, [facility] [place] [facility] [address] [id number] [place] [address] Feb, [facility] [place] [facility] [address] [id number] [place] [address] Feb, [facility] [place] [facility] [address] [id number] [place] [address] Feb, [facility] [place] [facility] [address] [id number] [place] [address] Feb, [facility] [place] [facility] [address] [id number] [place] [address] Feb, [facility] [place] [facility] [address] [id number] [place] [address] Feb, [facility] [place] [facility] [address] [id number] [place] [address] Feb, [facility] [place] [facility] [address] [id number] [place] [address] Feb, [facility] [place] [facility] [address] [id number] [place] [address]- [address] Feb, [facility] [address] [id number] [place] [address] January, [facility] [place] [facility] [address] [id number] [place] [address] January, [facility] [place] [facility] [address] [id number] [place] [address] January, [facility] [place] [facility] [address] [id number] [place] [address] January, [facility] [place] [facility] [address] [id number] [place] [address] January, [facility] [place] [facility] [address] [id number] [place] [address] January, [facility] [place] [facility] [address] [id number] [place] [address] January, [facility] [place] [facility] [address] [id number] [place] [address] January, [facility] [place] [facility] [address] [id number] [place] [address] January, [facility] [place] [facility] [address] [id number] [place] [address]- [address] January, [facility] [place] [facility] [address] [id number] [place] [address] January, [facility] [place] [facility] [address] [id number] [place] [address] January, [facility] [place] [facility] [address] [id number] [place] [address] January, [facility] [place] [facility] [address] [id number] [place] [address] January, [facility] [place] [facility] [address] [id number] [place] [address] Dec, [facility] [place] [facility] [address] [id number] [place] [address]83 Dec, [facility] [place] [facility] [address] [id number] [place] [address] Dec, [facility] [place] [facility] [address] [id number] [place] [address] 1668 Dec, [facility] [place] [facility] [address] [id number] [place] [address]- [address] Dec, [facility] [place] [facility] [address] [id number] [place] [address] Dec, [facility] [place] [facility] [address] [id number] [place] [address] Dec, [facility] [place] [facility] [address] [id number] [place] [address] Dec, [facility] [place] [facility] [address] [id number] [place] [address]- [address]84 Dec, [facility] [place] [facility] [address] [id number] [place] [address] 29[address] Dec, [facility] [place] [facility] [address] [id number] [place] [address] Nov, [facility] [place] [facility] [address] [id number] [place] [address] 38[address] Nov, [facility] [place] [facility] [address] [id number] [place] [address] Nov, [facility] [place] [facility] [address] [id number] [place] [address]- [address] Nov, [facility] [place] [facility] [address] [id number] [place] [address]- [address]6 Nov, [facility] [place] [facility] [address] [id number] [place] [address]- 69[address] Nov, [facility] [place] [facility] [address] [id number] [place] [address] Nov, [facility] [place] [facility] [address] [id number] [place] [address]- [address] Nov, [facility] [place] [facility] [address] [id number] [place] [address]- [address] Nov, [facility] [place] [facility] [address] [id number] [place] [address] 60[address] Nov, [facility] [place] [facility] [address] [id number] [place] [address] Oct, [facility] [place] [facility] [address] [id number] [place] [address] Oct, [facility] [place] [facility] [address] [id number] [place] [address] Oct, [facility] [place] [facility] [address] [id number] [place] [address] 8618 Oct, [facility] [place] [facility] [address] [id number] [place] [address] Oct, [facility] [place] [facility] [address] [id number] [place] [address]- [address]71 Oct, [facility] [place] [facility] [address] [id number] [place] [address]- [address] Oct, [facility] [place] [facility] [address] [id number] [place] [address] Oct, [facility] [place] [facility] [address] [id number] [place] [address] Oct, [facility] [place] [facility] [address] [id number] [place] [address] 5[address] Oct, [facility] [place] [facility] [address] [id number] [place] [address] 2009 Oct, [facility] [place] [facility] [address] [id number] [place] [address] 3693 Oct, [facility] [place] [facility] [address] [id number] [place] [address] Oct, [facility] [address] [id number] [place] [address] 6[address] Oct, [facility] [address] [id number] [place] [address] 6[address] Sep, [facility] [address] [id number] [place] [address] 9[address] Sep, [facility] [address] [id number] [place] [address]- 49[address] Sep, [facility] [address] [id number] [place] [address]- 4805 Sep, [facility] [address] [id number] [place] [address] 6794 Sep, [facility] [address] [id number] [place] [address]- 1323 Sep, [facility] [address] [id number] [place] [address]- 5544 Sep, [facility] [address] [id number] [place] [address]- 3042 Sep, [facility] [address] [id number] [place] [address]- 7774 Sep, [facility] [address] [id number] [place] [address]- 4826 Sep, [facility] [address] [id number] [place] [address]- 2303 Aug, [facility] [place] [facility] [address] [id number] [place] [address]- 3288 Aug, [facility] [address] [id number] [place] [address] 34[address] Jul, [facility] [address] [id number] [place] [address] Jul, [facility] [place] [facility] [address] [id number] [place] [address]- 8054 Jul, [facility] [place] [facility] [address] [id number] [place] [address]- 5870 Jul, [facility] [place] [facility] [address] [id number] [place] [address]- 6892 Jul, [facility] [place] [facility] [address] [id number] [place] [address]- 6103 Jul, [facility] [place] [facility] [address] [id number] [place] [address]- 0322 Jul, [facility] [place] [facility] [address] [id number] [place] [address]- 9750 Jul, [facility] [place] [facility] [address] [id number] [place] [address]- 1584 Jul, [facility] [place] [facility] [address] [id number], [place] [address]- 0465 Jul, [facility] [place] [facility] [address] [id number], [place] [address] 0[address] Jul, [facility] [place] [facility] [address] [id number], [place] [address]- 89[address] Jul, [facility] [place] [facility] [address] [id number], [place] [address]- 6847 Jul, [facility] [place] [facility] [address] [id number], [place] [address]- 0936 Jul, [facility] [place] [facility] [address] [id number], [place] [address]- 2089 Jul, [facility] [place] [facility] [address] [id number], [place] [address]- 6020 Jul, [facility] [place] [facility] [address] [id number], [place] [address]- 2982 Jul, [facility] [place] [facility] [address] [id number], [place] [address] 2543 Jul, 2012 [facility] [place] [facility] [address] [id number] [place] [address]- 0313 Jul, 2012 [facility] [place] [facility] [address] [id number], [place] [address]- [address] Jun, 2012 [facility] [place] [facility] [address] [id number] [place] [address]- 2320 Jun, 2012 [facility] [place] [facility] [address] [id number] [place] [address]- 2599 Jun, 2012 [facility] [place] [facility] [address] [id number] [place] [address]- 7823 Jun, 2012 [facility] [place] [facility] [address] [id number] [place] [address]- 6011 Jun, 2012 [facility] [place] [facility] [address] [id number], [place] [address]- 1714 Jun, 2012 [facility] [place] [facility] [address] [id number], [place] [address]- 0047 Jun, 2012 [facility] [place] [facility] [address] [facility] [id number], [place] [address]- 9200 Jun, 2012 [facility] [place] [facility] [address] [facility] [id number], [place] [address]- 8534 Jun, [facility] [place] [facility] [address] [id number], [place] [address]- 1179 Jun, 2012 [facility] [place] [facility] [address] [id number], [place] [address]- 9078 Jun, [facility] [place] [facility] [address] [id number], [place] [address]- 7108 May, 2012 [facility] [place] [facility] [address] [facility] [id number], [place] [address]- 6998 25 May, 2012 [facility] [place] [facility] [address] [id number], [place] [address]- 7283 19 May, 2012 [facility] [place] [facility] [address] [id number] [place] [address]- 1011 17 May, 2012 [facility] [place] [facility] [address] [id number] [place] [address]- 4056 11 May, 2012 [facility] [place] [facility] [address] [id number] [place] [address] 2546 10 May, 2012 [facility] [place] [facility] [address] [id number] [place] [address] 2546 09 May, 2013 [facility] [place] [facility] [address] [id number] [place] [address] 2548 05 May, 2013 [facility] [place] [facility] [address] [id number] [place] [address]- 1943 Apr, [facility] [place] [facility] [address] [id number] [place] [address]- 1114 Apr, [facility] [place] [facility] [address] [id number] [place] [address]- 7700 Apr, [facility] [place] [facility] [address] [id number] [place] [address]- 6950 Apr, [facility] [place] [facility] [address] [id number] [place] [address]- 0969 Apr, [facility] [place] [facility] [address] [id number] [place] [address]- 1791 Mar, [facility] [place] [facility] [address] [id number] [place] [address]- 9125 Mar, [facility] [place] [facility] [address] [id number] [place] [address]- 0738 Mar, [facility] [place] [facility] [address] [id number] [place] [address]- 0345 Mar, [facility] [place] [facility] [address] [id number] [place] [address]- 5400 Mar, [facility] [place] [facility] [address] [id number] [place] [address]- 6046 Mar, [facility] [address] [id number] [place] [address]- 4912 Mar, [facility] [place] [facility] [address] [id number] [place] [address]- 4589 Mar, [facility] [address] [id number] [place] [address]- 1344 Feb, [facility] [place] [facility] [address] [id number] [place] [address]- 3787 Feb, [facility] [address] [id number] [place] [address]- 9232 January, [facility] [address] [id number] [place] [address]- 4143 January, [facility] [address] [id number] [place] [address]- 1092 Dec, [facility] [place] [facility] [address] [id number] [place] [address]- 4165 Dec, [facility] [address] [id number] [place] [address]- 2544 Nov, [facility] [place] [facility] [address] [id number] [place] [address]- 7523 Nov, [facility] [place] [facility] [address] [id number], [place] [address]- 8232 Nov, [facility] [place] [facility] [address] [id number], [place] [address]- 1845 Nov, [facility] [place] [facility] [address] [id number] [place] [address]- 7740 Oct, [facility] [place] [facility] [address] [id number] [place] [address]- 8947 Oct, [facility] [place] [facility] [address] [id number] [place] [address]- 1493 Oct, [facility] [place] [facility] [address] [id number] [place] [address]- 5989 26 Oct, 2012 [facility] [address] [id number] [place] [address]- 7796 16 Oct, 2012 [facility] [address] [id number] [place] [address] 2546 14 Oct, 2012 [facility] [address] [id number] [place] [address] 2546 08 Oct, 2012 [facility] [address] [id number] [place] [address] 2547 07 Oct, 2012 [facility] [address] [id number] [place] [address] 2546 03 Oct, 2012 [facility] [address] [id number] [place] [address]- 5799 30 Sep, 2012 [facility] [address] [id number] [place] [address]- 2902 29 Sep, 2012 [facility] [address] [id number] [place] [address]- 8734 Sep, [facility] [address] [id number] [place] [address]- 0646 Sep, [facility] [address] [id number] [place] [address]- 0744 17 Sep, 2012 [facility] [address] [id number] [place] [address]- 2129 Sep, [facility] [address] [id number] [place] [address] 2543 09 Sep, 2012 [facility] [place] [facility] [address] [id number] [place] [address] 2542 08 Sep, 2012 [facility] [place] [facility] [address] [id number] [place] [address] 2541 31 Aug, 2012 [facility] [place] [facility] [address] [id number] [place] [address]- 3559 Aug, [facility] [place] [facility] [address] [id number] [place] [address]- 8586 Aug, [facility] [place] [facility] [address] [id number] [place] 3986 Aug, [facility] [place] [facility] [address] [facility] [id number] [place] 2271 Aug, [facility] [place] [facility] [address] [id number] [place] 6511 Aug, [facility] [place] [facility] [address] [id number] [place] [address]- 6337 Aug, [facility] [place] [facility] [address] [id number] [place] [address]- 8488 Aug, [facility] [place] [facility] [address] [id number] [place] [address]- 2838 Jul, [facility] [place] [facility] [address] [id number], [place] [address]- 8067 Jul, [facility] [place] [facility] [address] [id number], [place] [address]- 6653 Jul, [facility] [place] [facility] [address] [id number], [place] [address]- 7827 Jul, [facility] [place] [facility] [address] [id number], [place] [address]- 4955 Jul, [facility] [place] [facility] [address] [id number], [place] [address]- 6651 Jul, [facility] [place] [facility] [address] [id number], [place] [address]- 0736 Jun, [facility] [place] [facility] [address] [id number], [place] [address]- 4449 Jun, [facility] [place] [facility] [address] [facility] [id number], [place] [address]- 4188 Jun, [facility] [place] [facility] [address] [id number] [place] [address]- 9852 23 Jun, 2012 [facility] [place] [facility] [address] [id number] [place] [address]- 6537 Jun, [facility] [place] [facility] [address] [id number] [place] [address]- 3996 Jun, [facility] [place] [facility] [address] [id number] [place] [address]- 3724 Jun, [facility] [place] [facility] [address] [id number] [place] [address]- 2087 Jun, [facility] [place] [facility] [address] [id number] [place] [address]- 6168 10 Jun, 2012 [facility] [place] [facility] [address] [id number] [place] [address]- 7228 26 May, 2012 [facility] [place] [facility] [address] [id number] [place] [address]- 4336 24 May, 2012 [facility] [place] [facility] [address] [id number] [place] [address]- 4276 18 May, 2012 [facility] [place] [facility] [address] [id number] [place] [address]- 0074 30 Apr, 2012 [facility] [place] [facility] [address] [id number] [place] [address]- 7327 29 Apr, 2012 [facility] [place] [facility] [address] [id number] [place] [address] 2545 Apr, [facility] [place] [facility] [address] [id number] [place] [address]- 5685 14 Apr, 2012 [facility] [place] [facility] [address] [id number] [place] [address]- 7351 Apr, [facility] [place] [facility] [address] [id number] [place] [address]- 6403 Apr, [facility] [place] [facility] [address] [id number] [place] [address]- 7247 Mar, [facility] [place] [facility] [address] [id number] [place] [address]- 3790 Mar, [facility] [place] [facility] [address] [id number] [place] [address]- 6154 Mar, [facility] [address] [id number] [place] [address]- 1239 Mar, [facility] [place] [facility] [address] [id number] [place] [address]- 2213 Feb, [facility] [address] [id number] [place] [address]- 1170 Feb, [facility] [address] [id number] [place] [address]- 9559 Feb, [facility] [address] [id number] [place] [address]- 4703 Feb, [facility] [address] [id number] [place] [address]- 9774 Feb, [facility] [address] [id number] [place] [address]- 8056 January, [facility] [address] [id number] [place] [address]- 7802 January, [facility] [address] [id number] [place] [address]- 8915 January, [facility] [place] [facility] [address] [id number] [place] [address]- 2713 January, [facility] [place] [facility] [address] [id number] [place] [address]- 9562 January, [facility] [place] [facility] [address] [id number] [place] [address]- 7456 January, [facility] [place] [facility] [address] [id number] [place] [address]- 8237 Dec, [facility] [place] [facility] [address] [id number], [place] [address]- 9991 24 Dec, 2011 [facility] [address] [id number] [place] [address]- 8058 17 Dec, 2011 [facility] [place] [facility] [address] [id number] [place] [address]- 3806 09 Dec, 2011 [facility] [place] [facility] [address] [facility] [id number] [place] [address]- 2146 06 Dec, 2011 [facility] [place] [facility] [address] [id number] [place] [address]- 2359 27 Nov, 2011 [facility] [place] [facility] [address] [id number] [place] [address]- 8777 14 Nov, 2011 [facility] [place] [facility] [address] [id number] [place] [address]- 7306 Nov, [facility] [address] [id number] [place] [address]- 3777 Nov, [facility] [place] [facility] [address] [id number] [place] [address]- 2135 29 Oct, 2011 [facility] [place] [facility] [address] [id number] [place] [address]- 4186 28 Oct, 2011 [facility] [place] [facility] [address] [facility] [id number] [place] [address]- 5901 24 Oct, 2011 [facility] [place] [facility] [address] [id number] [place] [address]- 9464 13 Oct, 2011 [facility] [place] [facility] [address] [id number] [place] [address]- 9312 08 Oct, 2011 [facility] [place] [facility] [address] [id number] [place] [address]- 8290 Sep, [facility] [place] [facility] [address] [id number] [place] [address]- 9782 30 Sep, 2011 [facility] [place] [facility] [address] [facility] [id number], [place] [address]- 9100 Sep, [facility] [place] [facility] [address] [id number] [place] [address]- 8359 Sep, [facility] [place] [facility] [address] [id number] [place] [address]- 3102 Sep, [facility] [place] [facility] [address] [id number] [place] [address]- 1122 Sep, [facility] [place] [facility] [address] [id number] [place] [address]- 9216 Aug, [facility] [place] [facility] [address] [id number] [place] [address]- 3003 Aug, [facility] [place] [facility] [address] [id number] [place] [address]- 2435 Aug, [facility] [place] [facility] [address] [id number] [place] [address]- 4000 Jul, [facility] [place] [facility] [address] [id number] [place] [address]- 2406 Jul, [facility] [place] [facility] [address] [id number] [place] [address]- 3084 Jul, [facility] [place] [facility] [address] [id number] [place] [address]- 5046 Jul, [facility] [place] [facility] [address] [id number] [place] [address]- 3846 Jun, [facility] [place] [facility] [address] [id number] [place] [address]- 5564 Jun, [facility] [place] [facility] [address] [id number] [place] [address]- 9942 Jun, [facility] [place] [facility] [address] [id number] [place] [address]- 0062 Jun, [facility] [place] [facility] [address] [id number] [place] [address]- 5339 Jun, [facility] [place] [facility] [address] [id number] [place] [address]- 2893 10 Jun, 2011 [facility] [place] [facility] [address] [id number] [place] [address]- 0506 11 Mar, 2011 [facility] [place] [facility] [address] [id number] [place] [address]- 7666 18 Dec, 2010 [facility] [place] [facility] [address] [id number] [place] [address]- 0516 11 Dec, 2010 [facility] [place] [facility] [address] [id number] [place] [address]- 3626 18 Nov, 2010 [facility] [place] [facility] [address] [id number] [place] [address]- 3842 16 Nov, 2010 [facility] [place] [facility] [address] [id number] [place] [address]- 1777 10 Sep, 2010 [facility] [place] [facility] [address] [id number] [place] [address]- 0711 31 Aug, 2010 [facility] [place] [facility] [address] [id number] [place] [address]- 8866 29 Aug, 2010 [facility] [place] [facility] [address] [id number] [place] [address]- 3753 29 Aug, 2010 [facility] [place] [facility] [address] [id number] [place] [address]- 7503 29 Aug, 2010 [facility] [place] [facility] [address] [id number] [place] [address]- 7917 27 Aug, 2010 [facility] [place] [facility] [address] [id number] [place] [address] 2546 14 Aug, 2010 [facility] [place] [facility] [address] [id number] [place] [address] 2546 08 Aug, 2010 [facility] [place] [facility] [address] [id number] [place] [address]- 2543 08 Aug, 2010 [facility] [place] [facility] [address] [id number] [place] [address] 07 Aug, 2010 [facility] [place] [facility] [address] [id number] [place] [address] Aug, [facility] [address] [id number] [place] [address] Aug, [facility] [place] [facility] [address] [id number] [place] [address] Aug, [facility] [address] [id number] [place] [address] Jul, [facility] [place] [facility] [address] [id number] [place] [address] 254 Jul, [facility] [address] [id number] [place] [address], [place] [address] Jul, [facility] [address] [id number] [place] [address] Jul, [facility] [address] [facility] [id number] [place] [address] Jul, [facility] [address] [id number] [place] [address] Jul, [facility] [place] [facility] [address] [id number] [place] [address] 24 Jun, 2010 [facility] [address] [facility] [id number] [place] [address] Jun, [facility] [place] [facility] [address] [id number] [place] [address] Jun, [facility] [place] [facility] [address] [id number] [place] [address] Jun, [facility] [place] [facility] [address] [id number] [place] [address] 16 Apr, 2010 [facility] [place] [facility] [address] [id number] [place] [address] 2546 Mar, [facility] [place] [facility] [address] [id number] [place] [address] Feb, [facility] [place] [facility] [address] [id number] [place] [address] 11 Jan, 2010 [facility] [place] [facility] [address] [id number] [place] [address] 15 Dec, 2009 [facility] [place] [facility] [address] [id number] [place] [address] Nov, [facility] [place] [facility] [address] [id number] [place] [address] Aug, [facility] [address] [id number] [place] [address] Aug, [facility] [place] [facility] [address] [id number] [place] [address] Aug, [facility] [place] [facility] [address] [facility] [id number] [place] [address] Jul, [facility] [place] [facility] [address] [id number], [place] [address] Jul, [facility] [place] [facility] [address] [facility] [id number], [place] [address] Jul, [facility] [place] [facility] [address] [facility] [id number], [place] [address] 30 Jun, 2009 [facility] [place] [facility] [address] [facility] [id number], [place] [address] 29 Jun, 2009 [facility] [place] [facility] [address] [id number], [place] [address] Jun, [facility] [place] [facility] [address] [id number], [place] [address] Jun, [facility] [place] [facility] [address] [id number], [place] [address] Jun, [facility] [place] [facility] [address] [facility] [id number][place] [address] [address] Jun, [facility] [place] [facility] [address] [id number], [place] [address] Apr, [facility] [address] [facility] [id number] [place] [address] Apr, [facility] [address] [facility] [id number], [place] [address] Feb, [facility] [address] [facility] [id number], [place] [address] January, [facility] [address] [facility] [id number][place] [address] Dec, IMMUNIZATIONS No Known Immunizations SOCIAL HISTORY Never Assessed REASON FOR VISIT Refill request PLAN OF CARE VITAL SIGNS MEDICATIONS Medication Instructions Dosage Frequency Start Date End Date Duration Status Levemir 100 UNIT/ML Subcutaneous 2 times a day inject 100 units 12h 14 Oct 30 days Active RESULTS No Results PROCEDURES [...] obesity Medical History skin cancer-basal cell R synagogue (removed) Medical History Arthritis Medical History degenerative [...] History resection of skin cancer from Right synagogue Surgical History Biopsy of Lung Bilateral/Left lung lymph node 09/2016 Surgical History Bone Marrow Biopsy Surgical History port in the right chest wall 12/2016 Hospitalization History [facility] low potassium, low magnesium, chest painina 01/2015 Hospitalization History inability to urinate 09/16/15 Hospitalization History [facility] early Hospitalization History hyperkalemia 10/2017 Hospitalization History fluid in lung
--- OUTSIDE RECORDS SUMMARY | 2018-08-08 12:34 | XMS REPORT ---
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 Name Role Phone ROSELINE LUIS Unavailable PROBLEMS Type Condition ICD9-CM Code QPZ90-HR Code Onset Dates Condition Status SNOMED Code Problem Chronic lymphocytic leukemia C91.10 Active 58560992 Problem Insomnia, unspecified type G47.00 Active 048876594 Problem Lymphocytosis D72.820 Active 30929010 Problem Anxiety F41.9 Active 32229105 Problem Eye exam abnormal R93.8 Active 105871192 Problem Morbid obesity E66.01 Active 212370591 Problem Diabetic polyneuropathy associated with type 2 diabetes mellitus E11.42 Active 32261709 Problem Essential hypertension I10 Active 87931826 Problem Falling R29.6 Active 896336760 Problem 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 Active 515167524 Problem Cough R05 Active 50691456 Problem Dysuria R30.0 Active 27322830 Problem Eustachian tube dysfunction, unspecified laterality H69.80 Active 63894511 Problem Bilateral primary osteoarthritis of knee M17.0 Active 029263387 Problem Polyneuropathy associated with underlying disease G63 Active 245994973 Problem Anemia of chronic illness D63.8 Active 885423896 Problem Retinal edema H35.81 Active 6259565 Problem DM neuro manif type II E11.49 Active 54836460 Problem Diabetes E11.9 Active 62224837 Problem Hypokalemia E87.6 Active 04219486 Problem Benign prostatic hyperplasia with lower urinary tract symptoms, unspecified morphology N40.1 Active 928618514 Problem Reactive airway disease J45.909 Active 391389214767 Problem Bipolar I disorder, most recent episode (or current) mixed, moderate F31.62 Active 87633475 Problem Chronic pain G89.29 Active 65509197 Problem Leukocytosis D72.829 Active 278496461 ALLERGIES No Information ENCOUNTERS Encounter Location Date Diagnosis [facility] [id number], [place] [address] Apr, [facility] [id number], [place] [address] Mar, [facility] [id number], [place] [address] 95[address] Mar, [facility] [address], [place] [address] Mar, [facility] [address], [place] [address] Mar, Bipolar I disorder, most recent episode (or current) mixed, moderate F31.62 [facility] [id number] [place] [address] 13755- 4488 Feb, Bipolar I disorder, most recent episode (or current) mixed, moderate F31.62 [facility] [address], [place] [address] 7[address] Feb, Chronic pain G89.29 [facility] [address], [place] [address] Feb, Decubitus ulcer of right foot, stage 3 L89.893 and BMI 50.0- 59.9, adult Z68.43 [facility] [address], [place] [address] Feb, Bipolar I disorder, most recent episode (or current) mixed, moderate F31.62 [facility] [id number], [place] [address] Feb, [facility] [address], [place] [address] January, [facility] [address], [place] [address] 26[address] January, Chronic pain G89.29 [facility] [address], [place] [address] 9748 January, Bipolar I disorder, most recent episode (or current) mixed, moderate F31.62 [facility] [id number] [place] [address] 80186- 4426 January, Bipolar I disorder, most recent episode (or current) mixed, moderate F31.62 [facility] [id number] [place] [address] 09963- 2273 Dec, Bipolar I disorder, most recent episode (or current) mixed, moderate F31.62 and BMI 50.0-59.9, adult Z68.43 [facility] [id number] [place] [address] 33048- 2390 Dec, Bipolar I disorder, most recent episode (or current) mixed, moderate F31.62 [facility] [id number] [place] [address] 27871- 3074 Dec, Chronic pain G89.29 [facility] [address] [address]- 5426 Dec, DM neuro manif type II E11.49 ; Right flank pain R10.9 ; [facility] 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 Z79.891 ; Encounter for medication monitoring Z51.81 and BMI 50.0-59.9, adult Z68.43 [facility] [address] [place] [address] 00673- 2263 Dec, Bipolar I disorder, most recent episode (or current) mixed, moderate F31.62 [facility] [id number] [place] [address] 46929- 8702 Nov, Bipolar I disorder, most recent episode (or current) mixed, moderate F31.62 [facility] [id number] [place] [address] 33770- 8230 Nov, Chronic pain G89.29 [facility] [id number] [place] [address] 72945- 6928 Nov, Bipolar I disorder, most recent episode (or current) mixed, moderate F31.62 [facility] [id number] [place] [address] 41974- 2468 Nov, Hypokalemia E87.6 [facility] [address] 62849- 0877 Nov, Bipolar I disorder, most recent episode (or current) mixed, moderate F31.62 [facility] [address] 44233- 1113 Oct, Chronic pain G89.29 [facility] [address] 29250- 0155 Oct, BMI 50.0-59.9, adult Z68.43 and Bipolar I disorder, most recent episode (or current) mixed, moderate F31.62 [facility] [address] 67581- 6578 Oct, Bipolar I disorder, most recent episode (or current) mixed, moderate F31.62 [facility] [id number] [place] [address] 73600- 8392 Oct, [facility] [address] 15790- 2954 Oct, Hypokalemia E87.6 [facility] [id number] [place] [address] 51937- 4724 Oct, DM neuro manif type II E11.49 [facility] [id number] [place] [address] 69021- 4765 Oct, Bipolar I disorder, most recent episode (or current) mixed, moderate F31.62 [facility] [address] 157616- 5623 Oct, Bipolar I disorder, most recent episode (or current) mixed, moderate F31.62 [facility] [id number] [place] [address] 85974- 7648 14 Oct, 2017 Hyperkalemia E87.5 ; Falling R29.6 ; BMI 50.0-59.9, adult Z68.43 and Acute left ankle pain M25.572 [facility] [id number] [place] [address] 69567- 3230 08 Oct, 2017 DM neuro manif type II E11.49 [facility] [address] 48127- 0068 Oct, [facility] [address] 89599- 1729 Sep, Chronic pain G89.29 [facility] [address] 08435- 4189 Sep, [facility] [address] 52368- 9023 Sep, Bilateral primary osteoarthritis of knee M17.[address] 38[address]- 3922 Sep, Generalized edema R60.1 [facility] [id number] [place] [address] 52173- 8110 16 Sep, 2017 Bipolar I disorder, most recent episode (or current) mixed, moderate F31.62 [facility] [id number] [place] [address] 62923- 9756 15 Sep, 2017 Hypoxia R09.02 ; Other hypervolemia E87.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 ; Anemia of chronic illness D63.8 and BMI 50.0- 59.9, adult Z68.43 [facility] [id number] [place] [address] 78211- 6563 Sep, [facility] [address] [place] [address] 78880- 5507 Sep, Bipolar I disorder, most recent episode (or current) mixed, moderate F31.62 [address] [place] [address] 51649- 0776 28 Aug, 2017 Chronic pain G89.29 [facility] [id number] [place] [address] 03003- 1696 Aug, Generalized edema R60.1 [facility] [id number] [place] [address] 98432- 8997 18 Aug, 2017 [facility] [id number] [place] [address] 63594- 1029 18 Aug, 2017 [facility] [id number] [place] [address] 32364- 1382 14 Aug, 2017 Bipolar I disorder, most recent episode (or current) mixed, moderate F31.62 [facility] [id number] [place] [address] 52716- 8676 Aug, Bipolar I disorder, most recent episode (or current) mixed, moderate F31.62 [facility] [id number] [place] [address] 62940- 7460 04 Aug, 2017 Chronic pain G89.29 [facility] [id number] [place] [address] 09590- 2855 30 Jul, 2017 Bipolar I disorder, most recent episode (or current) mixed, moderate F31.62 [facility] [address] [place] [address] 55946- 6830 Jul, Bipolar I disorder, most recent episode (or current) mixed, moderate F31.62 and BMI 60.0-69.9, adult Z68.44 [facility] [address] [place] [address] 83237- 9862 16 Jul, 2017 Bipolar I disorder, most recent episode (or current) mixed, moderate F31.62 [facility] [address] [place] [address] 78543- 3414 06 Jul, 2017 Chronic pain G89.29 [facility] [id number] [place] [address] 69768- 7521 Jul, Bipolar I disorder, most recent episode (or current) mixed, moderate F31.62 [facility] [address], [place] [address]- 7635 Jun, Polyneuropathy associated with underlying disease G63 and Diabetes E11.9 [facility] [address], [place] [address]- 6675 Jun, Bipolar I disorder, most recent episode (or current) mixed, moderate F31.62 [facility] [id number] [place] [address] 40621- 1205 Jun, Chronic pain G89.29 [facility] [id number] [place] [address] 12356- 0586 May, Bipolar I disorder, most recent episode (or current) mixed, moderate F31.62 [facility] [id number] [place] [address] 05066- 3525 May, Bipolar I disorder, most recent episode (or current) mixed, moderate F31.62 [facility] [address], [place] [address]- 9502 20 May, 2017 Diabetic polyneuropathy associated with type 2 diabetes mellitus E11.42 [facility] [address], [place] [address]- 5100 18 May, 2017 Bipolar I disorder, most recent episode (or current) mixed, moderate F31.62 [facility] [address], [place] [address]- 7027 May, Bipolar I disorder, most recent episode (or current) mixed, moderate F31.62 [facility] [address], [place] [address]- 4851 May, Chronic pain G89.29 [facility] [address], [place] [address]- 8206 Apr, Bipolar I disorder, most recent episode (or current) mixed, moderate F31.62 [facility] [id number] [place] [address] 47339- 7959 Apr, [facility] [id number] [place] [address] 83940- 7151 Apr, Chronic pain G89.29 and DM neuro manif type II E11.49 [facility] [id number] [place] [address] 39593- 8862 Apr, [facility] [id number] [place] [address] 72531- 4604 Apr, Bipolar I disorder, most recent episode (or current) mixed, moderate F31.62 [facility] [id number] [place] [address] 29508- 8597 Apr, Chronic pain G89.29 [facility] [id number] [place] [address] 65245- 4606 Apr, Iliotibial band syndrome, left M76.32 [facility] [id number] [place] [address] 67407- 8525 Apr, Bipolar I disorder, most recent episode (or current) mixed, moderate F31.62 [facility] [id number] [place] [address] 85560- 3761 Mar, Bipolar I disorder, most recent episode (or current) mixed, moderate F31.62 [facility] [id number] [place] [address] 43825- 1831 Mar, Bipolar I disorder, most recent episode (or current) mixed, moderate F31.62 [facility] [id number] [place] [address] 99395- 2667 Mar, [facility] [id number] [place] [address] 70830- 4607 Mar, Bipolar I disorder, most recent episode (or current) mixed, moderate F31.62 [facility] [id number] [place] [address] 36915- 8246 Mar, Chronic pain G89.29 [facility] [address], [place] [address]- 9841 Mar, Bipolar I disorder, most recent episode (or current) mixed, moderate F31.62 [facility] [address], [place] [address]- 9328 Mar, Bipolar I disorder, most recent episode (or current) mixed, moderate F31.62 [facility] [id number] [place] [address] 59697- 5370 Mar, Acute pain of left knee M25.562 ; Left hip pain M25.552 ; Generalized edema R60.1 and Tongue swelling R22.0 [facility] [id number] [place] [address] 65289- 3920 Mar, [facility] [id number] [place] [address] 80622- 4742 Feb, Chronic pain G89.29 [facility] [id number] [place] [address] 47674- 1407 Feb, Diabetes E11.9 [facility] [id number] [place] [address] 05233- 2570 January, Chronic pain G89.29 [facility] [address] [place] [address] 04394- 6866 January, [facility] [id number] [place] [address] 06090- 3170 January, Bipolar I disorder, most recent episode (or current) mixed, moderate F31.62 [facility] [address] [place] [address] 41427- 4156 Dec, Bipolar I disorder, most recent episode (or current) mixed, moderate F31.62 [facility] [address] [place] [address] 53659- 6996 Dec, Chronic pain G89.29 [facility] [id number] [place] [address] 28859- 7174 Dec, Bipolar I disorder, most recent episode (or current) mixed, moderate F31.62 [facility] [address] [place] [address] 24010- 8248 Dec, Diabetes E11.9 ; Essential hypertension I10 ; Chronic pain G89.29 and Morbid obesity E66.01 [facility] [id number] [place] [address] 44676- 3530 Dec, [facility] [id number] [place] [address] 30780- 4179 Dec, Bipolar I disorder, most recent episode (or current) mixed, moderate F31.62 [facility] [address] [place] [address] 69965- 4778 Dec, Bipolar I disorder, most recent episode (or current) mixed, moderate F31.62 [facility] [id number] [place] [address] 36682- 6617 Nov, Chronic pain G89.29 [facility] [id number] [place] [address] 66733- 3445 Nov, Bipolar I disorder, most recent episode (or current) mixed, moderate F31.62 [facility] [address], [place] [address]- 0930 Nov, [facility] [address] [place] [address]- 6783 Nov, Bipolar I disorder, most recent episode (or current) mixed, moderate F31.62 [facility] [address], [place] [address]- 8927 Nov, Bipolar I disorder, most recent episode (or current) mixed, moderate F31.62 [facility] [address], [place] [address]- 3877 Nov, [facility] [id number] [place] [address] 39196- 8106 Nov, [facility] [address], [place] [address]- 6401 Nov, [facility] [address] [place] [address] 40188- 9821 Oct, Chronic pain G89.29 [facility] [address], [place] [address]- 6323 Oct, Bipolar I disorder, most recent episode (or current) mixed, moderate F31.62 [facility] [address] [place] [address] 26432- 5602 Oct, [facility] [id number] [place] [address] 20389- 4326 Oct, Chronic pain G89.29 ; Diabetes E11.9 ; Anxiety F41.9 and 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 [facility] [id number] [place] [address] 94419- 1710 Oct, [facility] [address] [place] [address] 56110- 7117 Oct, Diabetes E11.9 [facility] [address] [place] [address] 88107- 9992 Oct, Bipolar I disorder, most recent episode (or current) mixed, moderate F31.62 [facility] [address] [place] [address] 56994- 2801 Sep, Chronic pain G89.29 [facility] [address], [place] [address]- 3590 Sep, Chronic pain G89.29 [facility] [address], [place] [address]- 6136 Aug, Chronic pain G89.29 [facility] [address], [place] [address]- 4313 Jul, [facility] [id number] [place] [address] 06948- 5448 Jul, Diabetes E11.9 [facility] [id number] [place] [address] 65703- 3558 Jul, Chronic pain G89.29 [facility] [id number] [place] [address] 25825- 6260 Jul, Bipolar I disorder, most recent episode (or current) mixed, moderate F31.62 [facility] [id number] [place] [address] 99695- 4739 Jun, Bipolar I disorder, most recent episode (or current) mixed, moderate F31.62 [facility] [id number] [place] [address] 27801- 4565 Jun, [facility] [id number] [place] [address] 63829- 9079 Jun, Bipolar I disorder, most recent episode (or current) mixed, moderate F31.62 [facility] [id number] [place] [address] 84416- 9302 May, Insomnia, unspecified type G47.00 [facility] [id number] [place] [address] 55789- 7537 May, Bipolar I disorder, most recent episode (or current) mixed, moderate F31.62 [facility] [id number] [place] [address] 26687- 7541 14 May, 2016 [facility] [id number] [place] [address] 71643- 2734 May, Bipolar I disorder, most recent episode (or current) mixed, moderate F31.62 [facility] [id number] [place] [address] 43473- 5382 May, Diabetes E11.9 and Essential hypertension I10 [facility] [id number] [place] [address] 11596- 2452 Apr, Chronic pain G89.29 [facility] [address] [place] [address] 71521- 9653 Apr, Bipolar I disorder, most recent episode (or current) mixed, moderate F31.62 [facility] [id number] [place] [address] 08676- 5439 Apr, [facility] [id number] [place] [address] 45899- 0334 Apr, [facility] [address] [place] [address] 90482- 3462 Mar, Chronic pain G89.29 ; Headache, unspecified headache type R51 ; Neuropathy G62.9 ; Pain of right hip joint M25.551 and Essential hypertension I10 [facility] [id number] [place] [address] 35430- 1958 Mar, Chronic pain G89.29 [facility] [address] [place] [address] 83989- 3867 Mar, Bipolar I disorder, most recent episode (or current) mixed, moderate F31.62 [facility] [id number] [place] [address] 70344- 9422 Feb, Bipolar I disorder, most recent episode (or current) mixed, moderate F31.62 and Insomnia, unspecified type G47.00 [facility] [id number] [place] [address] 94938- 1663 Feb, Chronic pain G89.29 [facility] [id number] [place] [address] 22267- 9984 Feb, Bipolar I disorder, most recent episode (or current) mixed, moderate F31.62 [facility] [id number] [place] [address] 85201- 7426 January, Bipolar I disorder, most recent episode (or current) mixed, moderate F31.62 [facility] [id number] [place] [address] 75904- 8080 January, Chronic pain G89.29 [facility] [address] [place] [address] 77496- 0061 January, Chronic pain G89.29 and Essential hypertension I10 [facility] [id number] [place] [address] 96018- 1641 January, Bipolar I disorder, most recent episode (or current) mixed, moderate F31.62 [facility] [id number] [place] [address] 76300- 9733 Dec, [facility] [id number] [place] [address] 07020- 5777 Dec, [facility] [id number] [place] [address] 65406- 0518 Dec, [facility] [id number] [place] [address] 44999- 3768 Dec, [facility] [id number] [place] [address] 84548- 2450 Nov, Reactive airway disease J45.909 [facility] [id number] [place] [address] 24889- 6022 Nov, [facility] [id number] [place] [address] 42291- 8981 Nov, [facility] [id number] [place] [address] 49079- 0683 Nov, [facility] [id number] [place] [address] 72892- 2289 Nov, [facility] [id number] [place] [address] 54922- 6973 Nov, Onychomycosis B35.1 ; Hammertoe M20.40 ; [place] or callus L84 and DM neuro manif type II E11.49 [facility] [id number] [place] [address] 71577- 6512 15 Nov, 2015 Chronic pain G89.29 ; Leukocytosis D72.829 and Diabetes E11.9 [facility] [id number] [place] [address] [phone] Nov, [facility] [id number] [place] [address] 93556- 5819 Oct, Bronchitis J40 [facility] [id number] [place] [address] 89225- 0017 Oct, [facility] [address] [address]23- [address]46 Oct, [place] [id number] [place] [address] 24324- 1463 Oct, Mastoiditis, unspecified laterality H70.90 and Type 2 diabetes mellitus with complication E11.8 [place] [id number] [place] [address] 70174- 9379 Sep, [place] [address] 04669- 9662 Sep, Dysuria R30.0 ; Cough R05 ; Benign prostatic hyperplasia with lower urinary tract symptoms, unspecified morphology N40.1 ; Hypokalemia E87.6 and Eustachian tube dysfunction, unspecified laterality H69.80 [place] [id number] [place] [address] 32865- 4105 Sep, Moderate mixed bipolar I disorder F31.62 [place] [id number] [place] [address] 22302- 1202 Sep, Hypokalemia E87.6 [place] [id number] [place] [address] 70184- 5487 Sep, [place] [id number] [place] [address] 38628- 7119 Sep, Upper respiratory tract infection, unspecified type J06.9 [place] [id number] [place] [address] 78000- 2857 Aug, [facility] [address], [place] [address] 7359 Aug, Dysuria R30.0 [facility] [id number] [place] [address] 03813- 4306 Aug, [facility] [address], [place] [address]- 1093 Jul, [facility] [id number] [place] [address] 01140- 9786 Jul, [facility] [id number] [place] [address] 62913- 3940 Jul, [facility] [id number] [place] [address] 10219- 9057 Jul, [facility] [id number] [place] [address] 59997- 8285 Jun, [facility] [id number] [place] [address] 19686- 1844 Jun, [facility] [address], [place] [address]- 9160 Jun, [facility] [address], [place] [address]- 0305 May, [facility] [address], [place] [address]- 1809 May, Bipolar I disorder, most recent episode (or current) mixed, moderate 296.62 [facility] [address], [place] [address]- 8029 16 May, 2015 [facility] [address] [place] [address] 02654- 0504 May, Bipolar I disorder, most recent episode (or current) mixed, moderate 296.62 and Major depressive disorder, recurrent episode, severe, specified as with psychotic behavior 296.34 [facility] [address], [place] [address]- 3440 May, Bipolar I disorder, most recent episode (or current) mixed, moderate 296.62 [facility] [id number] [place] [address] 19489- 1382 May, [facility] [id number] [place] [address] 53867- 4499 Apr, [facility] [id number] [place] [address] 33809- 1344 Apr, [facility] [id number] [place] [address] 75159- 1074 Apr, Unspecified disorder of kidney and ureter 593.9 and Diabetes mellitus type 2, uncontrolled 250.02 [facility] [id number] [place] [address] 38171- 6322 Apr, [facility] [id number] [place] [address] 39206- 9314 Apr, [facility] [id number] [place] [address] 15693- 3523 Apr, [facility] [id number] [place] [address] 14076- 8205 Apr, [facility] [id number] [place] [address] 56048- 1082 Apr, Diabetes mellitus type II, uncontrolled 250.02 [facility] [address], [place] [address]- 3041 Apr, [facility] [address], [place] [address]- 7678 Mar, [facility] [id number] [place] [address] 79332- 3776 Mar, [facility] [address], [place] [address]- 0860 Mar, [facility] [address] [place] [address] 86952- 1794 Mar, Major depressive disorder, recurrent episode, severe, specified as with psychotic behavior 296.34 and Bipolar I disorder, most recent episode (or current) mixed, moderate 296.62 [facility] [id number] [place] [address] 79920- 6494 Mar, Diabetes 250.00 ; Anuria 788.5 ; Nausea and vomiting 787.01 and Diarrhea 787.91 [facility] [id number] [place] [address] 36442- 6644 Mar, Diabetes 250.00 [facility] [address] 22308- 3012 Mar, [facility] [id number] [place] [address] 10953- 4237 Mar, Diabetes 250.00 [facility] [id number] [place] [address] 51882- 8855 Mar, [facility] [address] 50795- 0187 Mar, [facility] [id number] [place] [address] 27522- 5298 Mar, [facility] [id number] [place] [address] 56480- 0360 Mar, [facility] [id number] [place] [address] 67710- 8503 Mar, Bipolar I disorder, most recent episode (or current) mixed, moderate 296.62 and Major depressive disorder, recurrent episode, severe, specified as with psychotic behavior 296.34 [facility] [id number] [place] [address] 75441- 7988 Mar, Magnesium deficiency 275.2 ; Hypokalemia 276.8 ; Nausea & vomiting 787.01 and Diabetes mellitus type 2, uncontrolled 250.02 [facility] [id number] [place] [address] 03905- 0362 Feb, [facility] [address] [place] [address]- 8444 Feb, Bipolar I disorder, most recent episode (or current) mixed, moderate 296.62 [place] [address] 09849- 1289 Feb, Nausea and vomiting 787.01 ; Left elbow pain 719.42 ; Anuria 788.5 and Diabetes 250.00 [place] [address] 57890- 9852 Feb, [place] [address] 78864- 2666 Feb, Hypopotassemia 276.8 and Hypokalemia 276.8 [place] [address] 07954- 8580 Feb, Hypopotassemia 276.8 and Hypokalemia 276.8 [place] [address] 44095- 9986 Feb, Seborrheic keratoses 702.19 [place] [id number] [place] [address] 94772- 4902 Feb, Hypopotassemia 276.8 and Low magnesium levels 275.2 [place] [id number] [place] [address] 17618- 3429 January, [place] [id number] [place] [address] 52069- 8340 January, [facility] [id number] [place] [address] 19296- 6519 January, [place] [id number] [place] [address] 29695- 6412 January, Scalp lesion 709.9 [facility] [id number] [place] [address] 80805- 6695 January, [facility] [id number] [place] [address] 82770- 8994 Dec, Tear of medial cartilage or meniscus of knee, current 836.0 and 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 [facility] [address] [facility] [id number], [place] [address]- 4316 Dec, [facility] [address] [facility] [id number], [place] [address] 2546 Dec, [facility] [address] [facility] [id number], [place] [address]- 4462 Dec, Squamous cell carcinoma, 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 [facility] [address] [facility] [id number] [place] [address]- 9916 Dec, [facility] [id number] [place] [address] 65555- 6028 Dec, [facility] [id number], [place] [address]- 0839 Nov, [facility] [id number], [place] [address]- 3519 Nov, [facility] [id number], [place] [address]- 6168 Nov, [facility] [address] [facility] [id number], [place] [address]- 4734 Nov, [facility] [id number], [place] [address]- 0070 Nov, [facility] [address] [facility] [id number][place] [address]- 5142 Nov, [facility] [address] [facility] [id number], [place] [address]- 5966 Nov, [facility] [address] [facility] [id number] 5700 Nov, [facility] [address] [facility] [id number] 1960 Nov, [facility] [address] [facility] [id number] [place] [address]- 2210 Nov, [facility] [place] [facility] [address] [id number] [place] [address]- 1336 Nov, [facility] [place] [facility] [address] [id number] [place] [address]- 8339 Nov, 2014 [facility] [place] [facility] [address] [facility] [id number] [place] [address]- 7827 Oct, 2014 [facility] [place] [facility] [address] [id number] [place] [address]- 4108 Oct, 2014 [facility] [place] [facility] [address] [id number] [place] [address]- 6584 Oct, 2014 [facility] [place] [facility] [address] [facility] [id number] [place] [address]- 5585 Oct, 2014 [facility] [place] [facility] [address] [facility] [id number] [place] [address]- 9864 Oct, 2014 [facility] [place] [facility] [address] [facility] [id number] [place] [address]- 3482 Oct, 2014 [facility] [place] [facility] [id number] [place] [address]- 4409 Oct, 2014 [facility] [place] [facility] [address] [facility] [id number] [place] [address]- 5200 Oct, 2014 [facility] [place] [facility] [address] [facility] [id number] [place] [address]- 2841 Oct, 2014 [facility] [place] [facility] [address] [facility] [id number], [place] [address]- 2802 Sep, [facility] [place] [facility] [address] [id number] [place] [address]- 1529 Sep, [facility] [place] [facility] [address] [facility] [id number] [place] [address]- 4580 Sep, [facility] [place] [facility] [address] [facility] [id number] [place] [address]- 1155 Sep, [facility] [place] [facility] [address] [id number] [place] [address]- 3607 Sep, [facility] [place] [facility] [address] [id number] [place] [address]- 2407 Sep, [facility] [place] [facility] [address] [id number] [place] [address]- 9016 Sep, [facility] [place] [facility] [address] [id number] [place] [address]- 7765 Sep, [facility] [place] [facility] [address] [id number] [place] [address]- 0799 Sep, [facility] [place] [facility] [address] [id number] [place] [address]- 8352 Sep, [facility] [place] [facility] [address] [id number] [place] [address]- 4670 Sep, [facility] [place] [facility] [address] [id number] [place] [address]- 7294 Sep, [facility] [place] [facility] [address] [id number] [place] [address]- 7031 Sep, [facility] [place] [facility] [address] [id number] [place] [address]- 0405 Sep, [facility] [place] [facility] [address] [id number], [place] [address]- 6085 Sep, [facility] [place] [facility] [address] [id number], [place] [address]- 0920 Sep, [facility] [place] [facility] [address] [id number] [place] [address]- 3939 Aug, [facility] [place] [facility] [address] [id number] [place] [address]- 1659 Aug, [facility] [place] [facility] [address] [id number] [place] [address]- 5252 Aug, [facility] [place] [facility] [address] [id number] [place] [address]- 8130 Aug, [facility] [address] [id number] [place] [address]- 0560 Aug, [facility] [address] [id number] [place] [address]- 8517 Aug, [facility] [address] [id number] [place] [address]- 2376 Aug, [facility] [address] [id number] [place] [address]- 3191 Aug, [facility] [address] [id number] [place] [address]- 2211 Aug, [facility] [address] [id number] [place] [address]- 8892 Aug, [facility] [address] [id number] [place] [address]- 9598 Aug, [facility] [address] [place] [id number] Aug, [facility] [address] [id number] [place] [address]- 1544 Aug, [facility] [address] [id number] [place] [address]- 2859 Aug, [facility] [address] [id number] [place] [address]- 0962 Aug, [facility] [address] [id number] [place] [address]- 2804 Aug, [facility] [address] [id number] [place] [address]- 7145 Aug, [facility] [address] [id number] [place] [address]- 7472 Aug, [facility] [address] [id number] [place] [address]- 4508 Aug, [facility] [address] [id number] [place] [address]- 2849 08 Aug, 2014 [facility] [place] [facility] [address] [id number] [place] [address]- 8015 Aug, [facility] [place] [facility] [address] [id number] [place] [address]- 8527 Aug, [facility] [place] [facility] [address] [id number] [place] [address]- 4690 Aug, [facility] [place] [facility] [address] [id number] [place] [address]- 1797 Aug, [facility] [place] [facility] [address] [id number] [place] [address]- 0200 Aug, [facility] [place] [facility] [address] [id number] [place] 9079 Aug, [facility] [place] [facility] [address] [id number] [place] [address]- 7095 Aug, [facility] [place] [facility] [address] [id number] [place] [address]- 9342 Aug, [facility] [place] [facility] [address] [id number] [place] [address]- 5600 Aug, [facility] [place] [facility] [address] [id number] [place] [address]- 5895 Aug, [facility] [place] [facility] [address] [id number] [place] [address]- 1408 Jul, [facility] [place] [facility] [address] [id number] [place] [address]- 3406 Jul, [facility] [place] [facility] [address] [id number] [place] [address]- 9983 Jul, [facility] [place] [facility] [address] [id number] [place] [address]- 2083 Jul, [facility] [place] [facility] [address] [id number] [place] 3153 Jul, [facility] [place] [facility] [address] [id number] [place] [address]- 5181 Jul, [facility] [place] [facility] [address] [id number] [place] [address]- 4471 Jul, [facility] [place] [facility] [address] [id number] [place] [address]- 2070 Jul, [facility] [place] [facility] [address] [id number] [place] [address]- 7099 Jul, [facility] [place] [facility] [address] [id number] [place] [address]- 3974 Jul, [facility] [place] [facility] [address] [id number] [place] [address]- 7084 Jun, [facility] [place] [facility] [address] [id number] [place] [address]- 8633 Jun, [facility] [place] [facility] [address] [id number], [place] [address]- 7443 Jun, [facility] [place] [facility] [address] [id number] [place] [address]- 3114 Jun, [facility] [place] [facility] [address] [id number], [place] [address]- 5711 Jun, [facility] [place] [facility] [address] [id number], [place] [address]- 7816 Jun, [facility] [place] [facility] [address] [id number], [place] [address]- 8983 Jun, [facility] [place] [facility] [address] [id number], [place] [address]- 5717 Jun, [facility] [place] [facility] [address] [id number], [place] [address]- 2502 Jun, [facility] [place] [facility] [address] [id number] 0282 Jun, [facility] [place] [facility] [address] [id number], [place] [address] 2544 29 Sep, 2013 [facility] [place] [facility] [address] [id number] [place] [address] 2546 29 Sep, 2013 [facility] [place] [facility] [address] [id number] [place] [address] 2546 26 Sep, 2013 [facility] [place] [facility] [address] [id number] [place] [address] 2546 26 Sep, 2013 [facility] [place] [facility] [address] [id number] [place] [address]- 2545 17 Sep, 2013 [facility] [place] [facility] [address] [id number] [place] [address]- 7328 17 Sep, 2013 [facility] [place] [facility] [address] [id number] [place] [address]- 2036 15 Sep, 2013 [facility] [place] [facility] [address] [id number], [place] [address]- 9609 15 Sep, 2013 [facility] [place] [facility] [address] [id number] [place] [address]- 2540 15 Sep, 2013 [facility] [place] [facility] [address] [id number] [place] [address]- 5877 15 Sep, 2013 [facility] [place] [facility] [address] [id number] [place] [address]- 2540 10 Sep, 2013 [facility] [place] [facility] [address] [id number] [place] [address] 2545 10 Sep, 2013 [facility] [place] [facility] [address] [id number], [place] [address]- 2543 09 Sep, 2013 [facility] [place] [facility] [address] [id number] [place] [address] 2542 09 Sep, 2013 [facility] [place] [facility] [address] [id number] [place] [address]- 2542 04 Sep, 2013 [facility] [place] [facility] [address] [id number] [place] [address]- 2542 04 Sep, 2013 [facility] [place] [facility] [address] [id number] [place] [address]- 5600 Apr, [facility] [place] [facility] [address] [id number] [place] [address]- 0112 Apr, [facility] [place] [facility] [address] [id number] [place] [address]- 4068 Apr, [facility] [place] [facility] [address] [id number] [place] [address]- 9367 Apr, [facility] [place] [facility] [address] [id number] [place] [address]- 3316 Apr, [facility] [place] [facility] [address] [id number] [place] [address]- 8951 Apr, [facility] [place] [facility] [address] [id number] [place] [address]- 3680 Apr, [facility] [place] [facility] [address] [id number] [place] [address]- 3835 Apr, [facility] [place] [facility] [address] [id number] [place] [address]- 7359 Apr, [facility] [place] [facility] [address] [id number] [place] [address]- 2947 Apr, [facility] [place] [facility] [address] [id number] [place] [address]- 5186 Apr, [facility] [place] [facility] [address] [id number] [place] [address]- 3854 Apr, [facility] [place] [facility] [address] [id number] [place] [address]- 4799 Apr, [facility] [place] [facility] [address] [id number] [place] [address]- 3863 Apr, [facility] [place] [facility] [address] [id number] [place] [address]- 2355 Apr, [facility] [place] [facility] [address] [id number] [place] [address]- 6001 Mar, 2013 [facility] [place] [facility] [address] [id number] [place] [address]- 6935 Mar, 2013 [facility] [place] [facility] [address] [id number] [place] [address] Mar, [facility] [place] [facility] [address] [id number] [place] [address] Mar, 2013 [facility] [place] [facility] [address] [id number] [place] [address] Mar, 2013 [facility] [place] [facility] [address] [id number] [place] [address] Mar, [facility] [place] [facility] [address] [id number] [place] [address] Mar, [facility] [place] [facility] [address] [id number] [place] [address] 1991 Mar, 2013 [facility] [place] [facility] [address] [id number] [place] [address] Mar, 2013 [facility] [place] [facility] [address] [id number] [place] [address] Mar, 2013 [facility] [place] [facility] [address] [id number] [place] [address]69 Mar, 2013 [facility] [place] [facility] [address] [id number] [place] [address] Mar, 2013 [facility] [place] [facility] [address] [id number], [place] [address] Mar, 2013 [facility] [place] [facility] [address] [id number] [place] [address] Mar, 2013 [facility] [place] [facility] [address] [id number] [place] [address] Mar, 2013 [facility] [place] [facility] [address] [id number] [place] [address] Mar, 2013 [facility] [place] [facility] [address] [id number] [place] [address] Mar, [facility] [place] [facility] [address] [id number] [place] [address]- [address] Mar, [facility] [place] [facility] [address] [id number] [place] [address] Feb, [facility] [place] [facility] [address] [id number] [place] [address] Feb, [facility] [place] [facility] [address] [id number] [place] [address] 37[address] Feb, [facility] [place] [facility] [address] [id number] [place] [address]- [address] Feb, [facility] [place] [facility] [address] [id number] [place] [address]- [address] Feb, [facility] [place] [facility] [address] [id number] [place] [address] Feb, [facility] [place] [facility] [address] [id number] [place] [address]- [address]95 Feb, [facility] [place] [facility] [address] [id number] [place] [address]- [address]10 Feb, [facility] [place] [facility] [address] [facility] [id number] [place] [address]- [address] Feb, [facility] [place] [facility] [address] [id number] [place] [address]- [address] Feb, [facility] [place] [facility] [address] [id number] [place] [address] Feb, [facility] [place] [facility] [address] [id number] [place] [address]- [address] Feb, [facility] [place] [facility] [address] [id number] [place] [address]- [address] Feb, [facility] [place] [facility] [address] [id number] [place] [address]- [address] Feb, [facility] [place] [facility] [address] [id number] [place] [address]658 January, [facility] [address] [id number] [place] [address] January, [facility] [place] [facility] [address] [id number] [place] [address] January, [facility] [place] [facility] [address] [id number] [place] [address] January, [facility] [address] [id number] [place] [address] January, [facility] [place] [facility] [address] [id number] [place] [address]- 83[address] January, [facility] [address] [id number] [place] [address]- [address]50 January, [facility] [address] [id number] [place] [address] January, [facility] [address] [id number] [place] [address] January, [facility] [place] [facility] [address] [id number] [place] [address] January, [facility] [place] [facility] [address] [id number] [place] [address]- [address] January, [facility] [place] [facility] [address] [id number] [place] [address] January, [facility] [place] [facility] [address] [id number] [place] [address] January, [facility] [place] [facility] [address] [id number] [place] [address]- [address] January, [facility] [place] [facility] [address] [id number] [place] [address]- [address] Dec, [facility] [place] [facility] [address] [id number] [place] [address]- [address] Dec, [facility] [place] [facility] [address] [id number] [place] [address]- [address] Dec, [facility] [place] [facility] [address] [id number] [place] [address] Dec, [facility] [place] [facility] [address] [id number] [place] [address]- [address] Dec, [facility] [place] [facility] [address] [id number] [place] [address]- [address] Dec, [facility] [place] [facility] [address] [id number] [place] [address] Dec, [facility] [place] [facility] [address] [id number] [place] [address] 7830 Dec, [facility] [place] [facility] [address] [id number] [place] [address] 5311 Dec, [facility] [place] [facility] [address] [id number] [place] [address] 6994 Dec, [facility] [place] [facility] [address] [id number] [place] [address]- 0558 Nov, [facility] [place] [facility] [address] [id number] [place] [address] 9796 Nov, [facility] [place] [facility] [address] [id number] [place] [address]- 5209 Nov, [facility] [place] [facility] [address] [id number] [place] [address]- 7507 Nov, [facility] [place] [facility] [address] [id number] [place] [address]- 5231 Nov, [facility] [place] [facility] [address] [id number] [place] [address]- 7141 Nov, [facility] [place] [facility] [address] [id number] [place] [address]- 8975 Nov, [facility] [place] [facility] [address] [id number] [place] [address]- 0482 Nov, [facility] [place] [facility] [address] [id number] [place] [address]- 4279 Nov, [facility] [place] [facility] [address] [id number] [place] [address]- 9055 Nov, [facility] [place] [facility] [address] [id number] [place] [address]- 7926 Oct, [facility] [place] [facility] [address] [id number] [place] [address]- 5938 Oct, [facility] [place] [facility] [address] [id number] [place] [address]- 9151 Oct, [facility] [place] [facility] [address] [facility] [id number] [place] [address]- 7445 Oct, [facility] [place] [facility] [address] [id number] [place] [address]- 9666 Oct, [facility] [place] [facility] [address] [id number] [place] [address]- 4705 Oct, [facility] [place] [facility] [address] [facility] [id number] [place] [address]- 2059 Oct, [facility] [place] [facility] [address] [facility] [id number] [place] [address]- 1145 Oct, [facility] [place] [facility] [address] [id number], [place] [address]- 3266 Oct, [facility] [place] [facility] [address] [id number] [place] [address]- 6801 Oct, [facility] [place] [facility] [address] [id number] [place] [address]- 1776 Oct, [facility] [place] [facility] [address] [facility] [id number] [place] [address]- 4898 Oct, [facility] [place] [facility] [address] [facility] [id number], [place] [address]- 0215 Oct, [facility] [address] [id number] [place] [address]- 9826 Oct, [facility] [place] [facility] [address] [id number] [place] [address]- 3922 Sep, [facility] [place] [facility] [address] [id number] [place] [address]- 7436 Sep, [facility] [place] [facility] [address] [id number] [place] [address]- 1819 Sep, [facility] [place] [facility] [address] [id number] [place] [address]- 9646 Sep, [facility] [place] [facility] [address] [id number] [place] [address]- [address] Sep, [facility] [address] [id number] [place] [address]- 4328 Sep, [facility] [place] [facility] [address] [id number] [place] [address]- 2450 Sep, [facility] [place] [facility] [address] [id number] [place] [address]- 5926 Sep, [facility] [place] [facility] [address] [facility] [id number] [place] [address]- 7615 Sep, [facility] [place] [facility] [address] [id number] [place] [address]- 3058 Sep, [facility] [place] [facility] [address] [id number] [place] [address]- 7520 Aug, [facility] [place] [facility] [address] [id number] [place] [address]- 0343 Aug, [facility] [place] [facility] [address] [id number] [place] [address]- 9245 Jul, [facility] [place] [facility] [address] [id number] [place] [address]- 9242 Jul, [facility] [place] [facility] [address] [id number] [place] [address]- 5537 Jul, [facility] [place] [facility] [address] [id number] [place] [address]- 9609 Jul, [facility] [place] [facility] [address] [id number] [place] [address]- 4333 Jul, [facility] [place] [facility] [address] [id number] [place] [address]- 2508 Jul, [facility] [place] [facility] [address] [id number] [place] [address]- 0982 Jul, [facility] [place] [facility] [address] [id number] [place] [address]- 3031 Jul, [facility] [place] [facility] [address] [id number] [place] [address]- 3319 Jul, [facility] [place] [facility] [address] [id number] [place] [address]- 1716 Jul, [facility] [place] [facility] [address] [id number] [place] [address]- 0286 Jul, [facility] [place] [facility] [address] [id number] [place] [address]- 7143 Jul, [facility] [place] [facility] [address] [id number] [place] [address]- 6370 Jul, [facility] [place] [facility] [address] [id number] [place] [address]- 1671 Jul, [facility] [place] [facility] [address] [id number] [place] [address]- 3695 Jul, [facility] [place] [facility] [address] [id number] [place] [address]- 0153 Jul, [facility] [place] [facility] [address] [id number] [place] [address]- 9875 Jul, [facility] [place] [facility] [address] [id number] [place] [address]- 8968 Jul, [facility] [place] [facility] [address] [id number] [place] [address] 2540 Jul, 2012 [facility] [place] [facility] [address] [id number] [place] [address]- 2546 Jun, 2012 [facility] [place] [facility] [address] [id number] [place] [address]- 2540 Jun, 2012 [facility] [place] [facility] [address] [id number] [place] [address]- 254 Jun, 2012 [facility] [place] [facility] [address] [id number] [place] [address]- 2547 Jun, 2012 [facility] [place] [facility] [address] [id number] [place] [address]- 9381 Jun, 2012 [facility] [place] [facility] [address] [id number] [place] [address] 2542 Jun, 2012 [facility] [place] [facility] [address] [id number], [place] [address]- 9267 Jun, 2012 [facility] [place] [facility] [address] [id number] [place] [address]- 9033 Jun, [facility] [place] [facility] [address] [id number], [place] [address]- 6945 Jun, [facility] [place] [facility] [address] [id number], [place] [address]- 4420 Jun, [facility] [place] [facility] [address] [id number], [place] [address] 2542 Jun, [facility] [place] [facility] [address] [id number] [place] [address] 2544 May, 2012 [facility] [place] [facility] [address] [id number], [place] [address] 2543 May, 2012 [facility] [place] [facility] [address] [id number] [place] [address]- 2541 19 May, 2013 [facility] [place] [facility] [address] [id number] [place] [address]- 2987 17 May, 2012 [facility] [address] [id number] [place] [address]- 4546 11 May, 2013 [facility] [address] [id number] [place] [address]- 2546 10 May, 2013 [facility] [address] [id number] [place] [address]- 5426 09 May, 2013 [facility] [address] [id number] [place] [address] 254 05 May, 2013 [facility] [address] [id number] [place] [address]- 8032 Apr, [facility] [address] [id number] [place] [address]- 4467 Apr, [facility] [address] [id number] [place] [address]- 2773 Apr, [facility] [address] [id number] [place] [address]- 9207 Apr, [facility] [address] [id number] [place] [address]- 5446 Apr, [facility] [address] [id number] [place] [address]- 9692 Mar, [facility] [place] [facility] [address] [id number] [place] [address]- 3505 Mar, [facility] [place] [facility] [address] [id number] [place] [address]- 6435 Mar, [facility] [place] [facility] [address] [id number] [place] [address]- 7644 Mar, [facility] [place] [facility] [address] [id number] [place] [address]- 4078 Mar, [facility] [place] [facility] [address] [id number] [place] [address]- 3120 Mar, [facility] [place] [facility] [address] [id number] [place] [address]- 8104 Mar, [facility] [place] [facility] [address] [id number] [place] [address]- 8862 Mar, [facility] [address] [id number] [place] [address]- 5465 Feb, [facility] [place] [facility] [address] [id number] [place] [address]- 2269 Feb, [facility] [address] [id number] [place] [address]- 3713 January, [facility] [place] [facility] [address] [id number] [place] [address]- 3867 January, [facility] [address] [id number] [place] [address]- 0575 Dec, [facility] [address] [id number] [place] [address]- 4241 Dec, [facility] [address] [id number] [place] [address]- 4905 Nov, [facility] [place] [facility] [address] [id number] [place] [address]- 9776 Nov, [facility] [place] [facility] [address] [id number] [place] [address]- 7879 Nov, [facility] [place] [facility] [address] [id number] [place] [address]- 9602 Nov, [facility] [place] [facility] [address] [id number] [place] [address]- 2372 Oct, [facility] [place] [facility] [address] [id number] [place] [address]- 9804 Oct, [facility] [place] [facility] [address] [id number] [place] [address]- 1182 Oct, [facility] [place] [facility] [address] [id number] [place] [address]- 5230 26 Oct, 2012 [facility] [address] [id number] [place] [address]- 5936 16 Oct, 2012 [facility] [address] [id number] [place] [address] 2546 14 Oct, 2012 [facility] [address] [id number] [place] [address] 2546 08 Oct, 2012 [facility] [address] [id number] [place] [address] 2542 07 Oct, 2012 [facility] [address] [id number] [place] [address]- 9620 03 Oct, 2012 [facility] [address] [id number] [place] [address]- 3351 30 Sep, 2012 [facility] [address] [id number] [place] [address]- 3313 29 Sep, 2012 [facility] [address] [id number] [place] [address]- 7170 23 Sep, 2012 [facility] [address] [id number] [place] [address]- 4540 Sep, [facility] [address] [id number] [place] [address]- 4758 17 Sep, 2012 [facility] [address] [id number] [place] [address]- 6516 Sep, [facility] [address] [id number] [place] [address] 2542 09 Sep, 2012 [facility] [address] [id number] [place] [address]- 2869 08 Sep, 2012 [facility] [address] [id number] [place] [address]- 7266 Aug, [facility] [address] [id number] [place] [address]- 7609 Aug, [facility] [place] [facility] [address] [id number] [place] [address]- 8624 Aug, [facility] [place] [facility] [address] [id number] [place] [address]- 3341 Aug, [facility] [place] [facility] [address] [id number] [place] [address]- 7580 Aug, [facility] [place] [facility] [address] [id number] [place] [address]- 2557 Aug, [facility] [place] [facility] [address] [id number] [place] [address]- 3257 Aug, [facility] [place] [facility] [address] [id number] [place] [address]- 3460 Aug, [facility] [place] [facility] [address] [facility] [id number] [place] [address]- 4340 Jul, [facility] [place] [facility] [address] [id number], [place] [address]- 7290 Jul, [facility] [place] [facility] [address] [id number] [place] [address]- 3082 Jul, [facility] [place] [facility] [address] [facility] [id number], [place] [address]- 1114 Jul, [facility] [place] [facility] [address] [facility] [id number], [place] [address]- 0491 Jul, [facility] [place] [facility] [address] [id number], [place] [address]- 3587 Jul, [facility] [place] [facility] [address] [id number], [place] [address]- 1355 Jun, [facility] [place] [facility] [address] [id number], [place] [address]- 9274 Jun, [facility] [place] [facility] [address] [facility] [id number], [place] [address]- 8547 Jun, [facility] [place] [facility] [address] [id number], [place] [address]- 4460 Jun, [facility] [place] [facility] [address] [id number] [place] [address]- 8687 Jun, [facility] [place] [facility] [address] [id number] [place] [address]- 0968 Jun, [facility] [place] [facility] [address] [id number] [place] [address]- 3511 Jun, [facility] [place] [facility] [address] [id number] [place] [address]- 7673 10 Jun, 2012 [facility] [place] [facility] [address] [id number] [place] [address]- 3093 10 Jun, 2012 [facility] [place] [facility] [address] [id number] [place] [address]- 8733 26 May, 2012 [facility] [place] [facility] [address] [facility] [id number] [place] [address]- 9666 24 May, 2012 [facility] [place] [facility] [address] [id number] [place] [address]- 7298 18 May, 2012 [facility] [place] [facility] [address] [facility] [id number] [place] [address]- 3080 30 Apr, 2012 [facility] [place] [facility] [address] [facility] [id number] [place] [address]- 3553 Apr, [facility] [place] [facility] [address] [facility] [id number] [place] [address]- 4627 Apr, [facility] [place] [facility] [address] [facility] [id number] [place] [address]- 9897 14 Apr, 2012 [facility] [place] [facility] [address] [id number] [place] [address]- 4748 Apr, [facility] [place] [facility] [address] [facility] [id number] [place] [address]- 7571 Apr, [facility] [place] [facility] [address] [facility] [id number] [place] [address]- 4611 Mar, [facility] [place] [facility] [address] [id number] [place] [address]- 4656 Mar, [facility] [place] [facility] [address] [id number] [place] [address]- 3554 Mar, [facility] [place] [facility] [address] [id number] [place] [address]- 2546 Mar, [facility] [place] [facility] [address] [id number] [place] [address]- 1000 Feb, [facility] [place] [facility] [address] [id number] [place] [address]- 6677 Feb, [facility] [place] [facility] [address] [id number] [place] [address]- 5785 Feb, [facility] [place] [facility] [address] [id number] [place] [address]- 1778 Feb, [facility] [place] [facility] [address] [id number] [place] [address]- 4327 Feb, [facility] [place] [facility] [address] [id number] [place] [address]- 7498 January, [facility] [place] [facility] [address] [id number] [place] [address]- 8696 January, [facility] [place] [facility] [address] [id number] [place] [address]- 8338 January, [facility] [place] [facility] [address] [id number] [place] [address]- 3396 January, [facility] [place] [facility] [address] [id number] [place] [address]- 7776 January, [facility] [place] [facility] [address] [id number] [place] [address]- 9176 January, [facility] [place] [facility] [address] [id number] [place] [address]- 6696 Dec, [facility] [place] [facility] [address] [id number] [place] [address]- 8501 24 Dec, 2011 [facility] [place] [facility] [address] [id number] [place] [address]- 9009 17 Dec, 2011 [facility] [place] [facility] [address] [id number] [place] [address]- 5856 09 Dec, 2011 [facility] [place] [facility] [address] [id number] [place] [address]- 9323 06 Dec, 2011 [facility] [place] [facility] [address] [id number] [place] [address]- 1727 27 Nov, 2011 [facility] [place] [facility] [address] [id number] [place] [address]- 1449 14 Nov, 2011 [facility] [place] [facility] [address] [id number] [place] [address]- 3343 12 Nov, 2011 [facility] [place] [facility] [address] [id number] [place] [address]- 8270 Nov, [facility] [place] [facility] [address] [id number] [place] [address]- 8900 29 Oct, 2011 [facility] [place] [facility] [address] [id number] [place] [address]- 6375 28 Oct, 2011 [facility] [place] [facility] [address] [id number] [place] [address]- 0030 24 Oct, 2011 [facility] [place] [facility] [address] [id number] [place] [address]- 9826 Oct, [facility] [place] [facility] [address] [id number] [place] [address]- 2322 08 Oct, 2011 [facility] [place] [facility] [address] [id number] [place] [address]- 7059 Sep, [facility] [place] [facility] [address] [id number] [place] [address]- 9552 30 Sep, 2011 [facility] [place] [facility] [address] [id number] [place] [address]- 8710 Sep, [facility] [place] [facility] [address] [id number] [place] [address]- 3220 Sep, [facility] [place] [facility] [address] [id number] [place] [address]- 9478 Sep, [facility] [place] [facility] [address] [id number] [place] [address]- 5698 Sep, [facility] [address] [id number] [place] [address]- 5605 Aug, [facility] [place] [facility] [address] [id number] [place] [address]- 6851 Aug, [facility] [place] [facility] [address] [id number] [place] [address]- 7250 Aug, [facility] [place] [facility] [address] [id number] [place] [address]- 3921 Jul, [facility] [place] [facility] [address] [id number] [place] [address]- 7187 Jul, [facility] [place] [facility] [address] [id number] [place] [address]- 0485 Jul, [facility] [place] [facility] [address] [id number] [place] [address] Jul, [facility] [place] [facility] [address] [id number] [place] [address] Jun, [facility] [place] [facility] [address] [id number] [place] [address]60 31 Jun, 2011 [facility] [place] [facility] [address] [id number] [place] [address] 18 Jun, 2011 [facility] [place] [facility] [address] [id number] [place] [address] 10 Jun, 2011 [facility] [place] [facility] [address] [id number] [place] [address] Jun, [facility] [place] [facility] [address] [id number] [place] [address] Jun, [facility] [place] [facility] [address] [id number] [place] [address]47 11 Mar, 2011 [facility] [place] [facility] [address] [id number] [place] [address] 18 Dec, 2010 [facility] [place] [facility] [address] [id number] [place] [address] 11 Dec, 2010 [facility] [place] [facility] [address] [id number] [place] [address]60 18 Nov, 2010 [facility] [place] [facility] [address] [id number] [place] [address]- 2546 16 Nov, 2010 [facility] [place] [facility] [address] [id number] [place] [address] 2346 10 Sep, 2010 [facility] [place] [facility] [address] [id number] [place] [address] 31 Aug, 2010 [facility] [place] [facility] [address] [id number] [place] [address] 29 Aug, 2010 [facility] [place] [facility] [address] [id number] [place] [address] 3177 29 Aug, 2010 [facility] [place] [facility] [address] [id number] [place] [address]- [address]645 29 Aug, 2010 [facility] [place] [facility] [address] [id number] [place] [address]- 6626 27 Aug, 2010 [facility] [place] [facility] [address] [id number], [place] [address] 14 Aug, 2010 [facility] [place] [facility] [address] [id number] [place] [address] 3441 08 Aug, 2010 [facility] [place] [facility] [address] [id number] [place] [address]- 6645 08 Aug, 2010 [facility] [place] [facility] [address] [id number] [place] [address] 07 Aug, 2010 [facility] [place] [facility] [address] [id number], [place] [address] Aug, [facility] [place] [facility] [address] [id number] [place] [address] Aug, [facility] [place] [facility] [address] [facility] [id number], [place] [address] Aug, [facility] [place] [facility] [address] [facility] [id number] [place] [address]- 4626 Jul, [facility] [place] [facility] [address] [id number], [place] [address] 79[address] Jul, [facility] [place] [facility] [address] [facility] [id number] [place] [address], [place] [address]- 4588 Jul, [facility] [place] [facility] [address] [facility] [id number], [place] [address]- 0[address] Jul, [facility] [place] [facility] [id number] [place] [address]- [address]44 Jul, [facility] [place] [facility] [address] [facility] [id number], [place] [address]- [address] Jul, [facility] [place] [facility] [address] [id number], [place] [address] 2507 Jun, [facility] [place] [facility] [address] [facility] [id number], [place] [address] Jun, [facility] [place] [facility] [address] [facility] [id number], [place] [address] 7031 Jun, [facility] [place] [facility] [address] [facility] [id number], [place] [address] 6512 Jun, [facility] [place] [facility] [address] [facility] [id number], [place] [address]170 16 Apr, 2010 [facility] [place] [facility] [address] [facility] [id number], [place] [address] Mar, [facility] [place] [facility] [address] [facility] [id number], [place] [address]487 Feb, [facility] [place] [facility] [address] [id number] [place] [address] 34[address] January, [facility] [place] [facility] [address] [id number] [place] [address] 3901 15 Dec, 2009 [facility] [place] [facility] [address] [id number] [place] [address] 2541 Nov, [facility] [place] [facility] [address] [id number] [place] [address]- 4[address] Aug, [facility] [place] [facility] [address] [id number] [place] [address] 4914 Aug, [facility] [place] [facility] [address] [id number] [place] [address] Aug, [facility] [place] [facility] [address] [facility] [id number] [place] [address]- 7065 Jul, [facility] [place] [facility] [address] [id number] [place] [address]- 0497 Jul, [facility] [place] [facility] [address] [id number] [place] [address]- 1608 Jul, [facility] [place] [facility] [address] [id number] [place] [address] 3901 30 Jun, 2009 [facility] [place] [facility] [address] [facility] [id number] [place] [address]- 3200 29 Jun, 2009 [facility] [place] [facility] [address] [id number], [place] [address] 4652 Jun, [facility] [place] [facility] [address] [id number], [place] [address] 6660 Jun, [facility] [place] [facility] [address] [id number] [place] [address]- 8006 Jun, [facility] [place] [facility] [address] [id number], [place] [address] 1453 Jun, [facility] [place] [facility] [address] [id number], [place] [address] 8[address] Apr, [facility] [address] [facility] [id number] [place] [address] 6773 Apr, [facility] [address] [facility] [id number], [place] [address] 69[address] Feb, [facility] [address] [facility] [id number], [place] [address] 5490 January, [facility] [address] [facility] [id number], [place] [address] 6925 Dec, IMMUNIZATIONS No Known Immunizations SOCIAL HISTORY Never Assessed REASON FOR VISIT BH f/u, Depression and irritability. PLAN OF CARE Activity Details Follow Up 1 Week Reason:depression VITAL SIGNS MEDICATIONS Unknown Medications RESULTS No Results PROCEDURES Procedure Date Ordered Result Body Site [facility] VISIT MENTAL HEALTH ESTAB PT Oct 10, 2017 Psychotherapy, patient &/family, 45 minutes, established patient Oct 10, 2017 INSTRUCTIONS MEDICATIONS ADMINISTERED No Known Medications [...]
--- OUTSIDE RECORDS SUMMARY | 2018-08-08 12:36 | XMS REPORT ---
Author Author ROSELINE LUIS Organization [facility] Address [address] [place] [address] Care Team Providers Care Ground Support Agent Name Role Phone ROSELINE LUIS Unavailable PROBLEMS Type Condition ICD9-CM Code FUU98-VL Code Onset Dates Condition Status SNOMED Code Problem Chronic lymphocytic leukemia C91.10 Active 16484168 Problem Insomnia, unspecified type G47.00 Active 363899134 Problem Lymphocytosis D72.820 Active 04130129 Problem Anxiety F41.9 Active 32875621 Problem Eye exam abnormal R93.8 Active 157228093 Problem Morbid obesity E66.01 Active 231172647 Problem Diabetic polyneuropathy associated with type 2 diabetes mellitus E11.42 Active 48576790 Problem Essential hypertension I10 Active 35861762 Problem Falling R29.6 Active 625503641 Problem 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 Active 629474200 Problem Cough R05 Active 47579096 Problem Dysuria R30.0 Active 09346314 Problem Eustachian tube dysfunction, unspecified laterality H69.80 Active 52516872 Problem Bilateral primary osteoarthritis of knee M17.0 Active 640891668 Problem Polyneuropathy associated with underlying disease G63 Active 706316491 Problem Anemia of chronic illness D63.8 Active 190407164 Problem Retinal edema H35.81 Active 7004281 Problem DM neuro manif type II E11.49 Active 38163460 Problem Diabetes E11.9 Active 26275094 Problem Hypokalemia E87.6 Active 07007295 Problem Benign prostatic hyperplasia with lower urinary tract symptoms, unspecified morphology N40.1 Active 701455533 Problem Reactive airway disease J45.909 Active 427322780020 Problem Bipolar I disorder, most recent episode (or current) mixed, moderate F31.62 Active 22410607 Problem Chronic pain G89.29 Active 58361507 Problem Leukocytosis D72.829 Active 621448609 ALLERGIES No Information ENCOUNTERS Encounter Location Date Diagnosis [facility] [address] [place] [address] Mar, [facility] [address] [place] [address] 6[address] Mar, [facility] [address] [place] [address] 75[address] Mar, [facility] [address] [place] [address] 8[address] Mar, [facility] [address] [place] [address] Feb, [facility] [id number] [place] [address] 92867- 5288 Feb, Chronic pain G89.29 [facility] [address], [place] [address] Feb, Decubitus ulcer of right foot, stage 3 L89.893 and BMI 50.0- 59.9, adult Z68.43 [facility] [address] [place] [address] Feb, Bipolar I disorder, most recent episode (or current) mixed, moderate F31.62 [facility] [address] [place] [address] 80[address] Feb, [facility] [address] [place] [address] January, [facility] [address] [place] [address] January, Chronic pain G89.29 [facility] [address] [place] [address] 67[address] January, Bipolar I disorder, most recent episode (or current) mixed, moderate F31.62 [facility] [address], [place] [address] 70[address] January, Bipolar I disorder, most recent episode (or current) mixed, moderate F31.62 [facility] [address] [place] [address] 3337 Dec, Bipolar I disorder, most recent episode (or current) mixed, moderate F31.62 and BMI 50.0-59.9, adult Z68.43 [facility] [id number] [place] [address] 13639- 7743 Dec, Bipolar I disorder, most recent episode (or current) mixed, moderate F31.62 [facility] [id number] [place] [address] 23703- 2972 Dec, Chronic pain G89.29 [facility] [id number] [place] [address] 68662- 2691 Dec, DM neuro manif type II E11.49 ; Right flank pain R10.9 ; [facility] 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 Z79.891 ; Encounter for medication monitoring Z51.81 and BMI 50.0-59.9, adult Z68.43 [facility] [id number] [place] [address] 65848- 0730 Dec, Bipolar I disorder, most recent episode (or current) mixed, moderate F31.62 [facility] [id number] [place] [address] 70388- 3018 Nov, Bipolar I disorder, most recent episode (or current) mixed, moderate F31.62 [facility] [id number] [place] [address] 95573- 7178 Nov, Chronic pain G89.29 [facility] [id number] [place] [address] 53279- 1320 Nov, Bipolar I disorder, most recent episode (or current) mixed, moderate F31.62 [facility] [id number] [place] [address] 74607- 5509 Nov, Hypokalemia E87.6 [facility] [id number] [place] [address] 14491- 9150 Nov, Bipolar I disorder, most recent episode (or current) mixed, moderate F31.62 [facility] [id number] [place] [address] 43767- 9253 Oct, Chronic pain G89.29 [facility] [id number] [place] [address] 88521- 9166 Oct, BMI 50.0-59.9, adult Z68.43 and Bipolar I disorder, most recent episode (or current) mixed, moderate F31.62 [facility] [id number] [place] [address] 29176- 1940 Oct, Bipolar I disorder, most recent episode (or current) mixed, moderate F31.62 [facility] [id number] [place] [address] 52658- 6623 Oct, [facility] [address] 85502- 5791 Oct, Hypokalemia E87.6 [facility] [id number] [place] [address] 32750- 9748 Oct, DM neuro manif type II E11.49 [facility] [id number] [place] [address] 26403- 9115 Oct, Bipolar I disorder, most recent episode (or current) mixed, moderate F31.62 [facility] [id number] [place] [address] 02439- 2475 Oct, Bipolar I disorder, most recent episode (or current) mixed, moderate F31.62 [facility] [id number] [place] [address] 95645- 3670 14 Oct, 2017 Hyperkalemia E87.5 ; Falling R29.6 ; BMI 50.0-59.9, adult Z68.43 and Acute left ankle pain M25.572 [facility] [id number] [place] [address] 29475- 7587 Oct, DM neuro manif type II E11.49 [facility] [address] [place] [address] 69091- 1805 Oct, [facility] [id number] [place] [address] 31940- 1404 Sep, Chronic pain G89.29 [facility] [id number] [place] [address] 77184- 9552 Sep, [facility] [id number] [place] [address] 45927- 7603 Sep, Bilateral primary osteoarthritis of knee M17.[address] [address]- 2903 Sep, Generalized edema R60.1 [facility] [id number] [place] [address] 11429- 6078 16 Sep, 2017 Bipolar I disorder, most recent episode (or current) mixed, moderate F31.62 [facility] [id number] [place] [address] 56555- 1374 15 Sep, 2017 Hypoxia R09.02 ; Other hypervolemia E87.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 ; Anemia of chronic illness D63.8 and BMI 50.0- 59.9, adult Z68.43 [place] [id number] [place] [address] 00144- 3381 Sep, [facility] [id number] [place] [address] 09451- 6092 Sep, Bipolar I disorder, most recent episode (or current) mixed, moderate F31.62 [facility] [id number] [place] [address] 41763- 3746 Aug, Chronic pain G89.29 [facility] [id number] [place] [address] 77100- 2632 Aug, Generalized edema R60.1 [facility] [address] [place] [address]- 7005 18 Aug, 2017 [facility] [id number] [place] [address] 50430- 2211 18 Aug, 2017 [facility] [id number] [place] [address] 98297- 9451 14 Aug, 2017 Bipolar I disorder, most recent episode (or current) mixed, moderate F31.62 [facility] [id number] [place] [address] 22168- 1747 Aug, Bipolar I disorder, most recent episode (or current) mixed, moderate F31.62 [facility] [id number] [place] [address] 58307- 4445 04 Aug, 2017 Chronic pain G89.29 [facility] [id number] [place] [address] 76141- 2437 Jul, Bipolar I disorder, most recent episode (or current) mixed, moderate F31.62 [facility] [id number] [place] [address] 40015- 6974 Jul, Bipolar I disorder, most recent episode (or current) mixed, moderate F31.62 and BMI 60.0-69.9, adult Z68.44 [facility] [id number] [place] [address] 65173- 8497 16 Jul, 2017 Bipolar I disorder, most recent episode (or current) mixed, moderate F31.62 [facility] [address] [place] [address]- 3008 Jul, Chronic pain G89.29 [facility] [id number] [place] [address] 44218- 6613 02 Jul, 2017 Bipolar I disorder, most recent episode (or current) mixed, moderate F31.62 [facility] [id number] [place] [address] 86079- 8116 Jun, Polyneuropathy associated with underlying disease G63 and Diabetes E11.9 [facility] [id number] [place] [address] 22215- 9833 16 Jun, 2017 Bipolar I disorder, most recent episode (or current) mixed, moderate F31.62 [facility] [id number] [place] [address] 35975- 0390 09 Jun, 2017 Chronic pain G89.29 [facility] [id number] [place] [address] 19433- 2482 27 May, 2017 Bipolar I disorder, most recent episode (or current) mixed, moderate F31.62 [facility] [id number] [place] [address] 58772- 2432 21 May, 2017 Bipolar I disorder, most recent episode (or current) mixed, moderate F31.62 [facility] [id number] [place] [address] 00406- 9501 20 May, 2017 Diabetic polyneuropathy associated with type 2 diabetes mellitus E11.42 [facility] [id number] [place] [address] 46151- 2090 18 May, 2017 Bipolar I disorder, most recent episode (or current) mixed, moderate F31.62 [facility] [id number] [place] [address] 14565- 8909 13 May, 2017 Bipolar I disorder, most recent episode (or current) mixed, moderate F31.62 [facility] [id number] [place] [address] 12385- 2138 May, Chronic pain G89.29 [facility] [id number] [place] [address] 62578- 5877 Apr, Bipolar I disorder, most recent episode (or current) mixed, moderate F31.62 [facility] [id number] [place] [address] 15262- 0030 Apr, [facility] [id number] [place] [address] 63574- 3885 Apr, Chronic pain G89.29 and DM neuro manif type II E11.49 [facility] [id number] [place] [address] 64618- 5646 Apr, [facility] [id number] [place] [address] 952978- 7756 Apr, Bipolar I disorder, most recent episode (or current) mixed, moderate F31.62 [facility] [id number] [place] [address] 40897- 1033 Apr, Chronic pain G89.29 [facility] [id number] [place] [address] 61413- 0198 Apr, Iliotibial band syndrome, left M76.32 [facility] [id number] [place] [address] 750467- 5524 Apr, Bipolar I disorder, most recent episode (or current) mixed, moderate F31.62 [facility] [id number] [place] [address] 75366- 9840 Mar, Bipolar I disorder, most recent episode (or current) mixed, moderate F31.62 [facility] [id number] [place] [address] 83220- 5964 Mar, Bipolar I disorder, most recent episode (or current) mixed, moderate F31.62 [facility] [id number] [place] [address] 95789- 1973 Mar, [facility] [id number] [place] [address] 61737- 3441 Mar, Bipolar I disorder, most recent episode (or current) mixed, moderate F31.62 [facility] [id number] [place] [address] 50032- 6038 Mar, Chronic pain G89.29 [facility] [id number] [place] [address] 43019- 2544 Mar, Bipolar I disorder, most recent episode (or current) mixed, moderate F31.62 [facility] [id number] [place] [address] 05787- 1140 Mar, Bipolar I disorder, most recent episode (or current) mixed, moderate F31.62 [facility] [id number] [place] [address] 72713- 1075 Mar, Acute pain of left knee M25.562 ; Left hip pain M25.552 ; Generalized edema R60.1 and Tongue swelling R22.0 [facility] [id number] [place] [address] 30339- 2711 Mar, [facility] [id number] [place] [address] 52380- 3131 Feb, Chronic pain G89.29 [facility] [id number] [place] [address] 36831- 4345 Feb, Diabetes E11.9 [facility] [id number] [place] [address] 48372- 9761 January, Chronic pain G89.29 [facility] [id number] [place] [address] 05858- 6077 January, [facility] [id number] [place] [address] 11972- 2805 January, Bipolar I disorder, most recent episode (or current) mixed, moderate F31.62 [facility] [id number] [place] [address] 64578- 2669 Dec, Bipolar I disorder, most recent episode (or current) mixed, moderate F31.62 [facility] [address] [place] [address] 68421- 3994 Dec, Chronic pain G89.29 [facility] [id number] [place] [address] 67182- 9958 Dec, Bipolar I disorder, most recent episode (or current) mixed, moderate F31.62 [facility] [id number] [place] [address] 86785- 2470 Dec, Diabetes E11.9 ; Essential hypertension I10 ; Chronic pain G89.29 and Morbid obesity E66.01 [facility] [address] [place] [address]- 7556 Dec, [facility] [id number] [place] [address] 93321- 0316 Dec, Bipolar I disorder, most recent episode (or current) mixed, moderate F31.62 [facility] [id number] [place] [address] 06483- 8807 Dec, Bipolar I disorder, most recent episode (or current) mixed, moderate F31.62 [facility] [id number] [place] [address] 68540- 5425 Nov, Chronic pain G89.29 [facility] [id number] [place] [address] 81538- 9078 Nov, Bipolar I disorder, most recent episode (or current) mixed, moderate F31.62 [facility] [id number] [place] [address] 25529- 1272 Nov, [facility] [id number] [place] [address] 52584- 8800 Nov, Bipolar I disorder, most recent episode (or current) mixed, moderate F31.62 [facility] [address] [place] [address]- 3792 Nov, Bipolar I disorder, most recent episode (or current) mixed, moderate F31.62 [facility] [address], [place] [address]- 1054 Nov, [facility] [id number] [place] [address] 91154- 0576 Nov, [facility] [id number] [place] [address] 22342- 8356 Nov, [facility] [address] [place] [address] 71862- 6483 Oct, Chronic pain G89.29 [facility] [address] [place] [address] 51824- 0804 Oct, Bipolar I disorder, most recent episode (or current) mixed, moderate F31.62 [facility] [id number] [place] [address] 18622- 1826 Oct, [facility] [id number] [place] [address] 28049- 4028 Oct, Chronic pain G89.29 ; Diabetes E11.9 ; Anxiety F41.9 and 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 [facility] [id number] [place] [address] 68340- 1768 Oct, [facility] [id number] [place] [address] 92875- 2524 Oct, Diabetes E11.9 [facility] [id number] [place] [address] 80363- 1653 Oct, Bipolar I disorder, most recent episode (or current) mixed, moderate F31.62 [facility] [id number] [place] [address] 97170- 8729 Sep, Chronic pain G89.29 [facility] [id number] [place] [address] 88104- 3340 Sep, Chronic pain G89.29 [facility] [id number] [place] [address] 55115- 2546 Aug, Chronic pain G89.29 [facility] [id number] [place] [address] 74390 2546 Jul, [facility] [id number] [place] [address] 38210- 2546 Jul, Diabetes E11.9 [facility] [id number] [place] [address] 01480- 2546 Jul, Chronic pain G89.29 [facility] [id number] [place] [address] 59303- 1824 Jul, Bipolar I disorder, most recent episode (or current) mixed, moderate F31.62 [facility] [id number] [place] [address] 86781- 8932 Jun, Bipolar I disorder, most recent episode (or current) mixed, moderate F31.62 [facility] [address] 84226- 0050 Jun, [facility] [id number] [place] [address] 43835- 3485 Jun, Bipolar I disorder, most recent episode (or current) mixed, moderate F31.62 [facility] [id number] [place] [address] 81441- 0809 30 May, 2016 Insomnia, unspecified type G47.00 [facility] [id number] [place] [address] 81253- 5329 May, Bipolar I disorder, most recent episode (or current) mixed, moderate F31.62 [facility] [id number] [place] [address] 45421- 8228 14 May, 2016 [facility] [id number] [place] [address] 66222- 3293 08 May, 2016 Bipolar I disorder, most recent episode (or current) mixed, moderate F31.62 [facility] [id number] [place] [address] 96776- 5834 06 May, 2016 Diabetes E11.9 and Essential hypertension I10 [facility] [id number] [place] [address] 57430- 5191 Apr, Chronic pain G89.29 [facility] [id number] [place] [address] 52519- 9663 Apr, Bipolar I disorder, most recent episode (or current) mixed, moderate F31.62 [facility] [id number] [place] [address] 04103- 2578 Apr, [facility] [id number] [place] [address] 23693- 6622 Apr, [facility] [id number] [place], [place] [address]- 1089 Mar, Chronic pain G89.29 ; Headache, unspecified headache type R51 ; Neuropathy G62.9 ; Pain of right hip joint M25.551 and Essential hypertension I10 [facility] [id number] [place] [address] 97334- 5982 Mar, Chronic pain G89.29 [facility] [id number] [place] [address] 75279- 3897 Mar, Bipolar I disorder, most recent episode (or current) mixed, moderate F31.62 [facility] [id number] [place] [address] 99713- 0952 Feb, Bipolar I disorder, most recent episode (or current) mixed, moderate F31.62 and Insomnia, unspecified type G47.00 [facility] [id number] [place] [address] 75953- 0665 Feb, Chronic pain G89.29 [facility] [id number] [place] [address] 95591- 9929 Feb, Bipolar I disorder, most recent episode (or current) mixed, moderate F31.62 [facility] [id number] [place] [address] 63846- 6850 January, Bipolar I disorder, most recent episode (or current) mixed, moderate F31.62 [facility] [id number] [place] [address] 12111- 6441 January, Chronic pain G89.29 [facility] [id number] [place] [address] 65805- 4389 January, Chronic pain G89.29 and Essential hypertension I10 [facility] [id number] [place] [address] 57082- 5328 January, Bipolar I disorder, most recent episode (or current) mixed, moderate F31.62 [facility] [id number] [place] [address] 57360- 7153 Dec, [facility] [id number] [place] [address] 38334- 2579 Dec, [facility] [address] 47626- 1925 Dec, [facility] [id number] [place] [address] 67859- 9523 Dec, [facility] [address] 13233- 7897 Nov, Reactive airway disease J45.909 [facility] [id number] [place] [address] 03286- 4784 Nov, [facility] [address] 19845- 9282 Nov, [facility] [id number] [place] [address] 89778- 5220 Nov, [facility] [id number] [place] [address] 55946- 6712 Nov, [facility] [id number] [place] [address] 30146- 3295 Nov, Onychomycosis B35.1 ; Hammertoe M20.40 ; [place] or callus L84 and DM neuro manif type II E11.49 [facility] [id number] [place] [address] 36357- 5938 Nov, Chronic pain G89.29 ; Leukocytosis D72.829 and Diabetes E11.9 [facility] [id number] [place] [address] 79944- 5627 Nov, [facility] [id number] [place] [address] 63902- 2856 Oct, Bronchitis J40 [facility] [id number] [place] [address] [phone]- 0792 Oct, [facility] [address] [address]- [address] Oct, [facility] [id number] [place] [address] 08570- 9685 Oct, Mastoiditis, unspecified laterality H70.90 and Type 2 diabetes mellitus with complication E11.8 [facility] [id number] [place] [address] [phone]- 0258 Sep, [place] [address] [address]- [address] Sep, Dysuria R30.0 ; Cough R05 ; Benign prostatic hyperplasia with lower urinary tract symptoms, unspecified morphology N40.1 ; Hypokalemia E87.6 and Eustachian tube dysfunction, unspecified laterality H69.80 [facility] [id number] [place] [address] 49495- 6023 Sep, Moderate mixed bipolar I disorder F31.62 [facility] [id number] [place] [address] 75782- 6652 Sep, Hypokalemia E87.6 [facility] [id number] [place] [address] [phone]- [phone] Sep, [facility] [id number] [place] [address] 46803- 8621 Sep, Upper respiratory tract infection, unspecified type J06.9 [place] [id number] [place] [address] 59293- 5455 Aug, [facility] [id number] [place] [address] 37934- 0559 Aug, Dysuria R30.0 [facility] [id number] [place] [address] 28931- 4551 Aug, [facility] [address] [address] 4674 Jul, [facility] [address], [place] [address] 3087 Jul, [facility] [address], [place] [address] 6366 Jul, [facility] [id number] [place] [address] 87918- 2851 Jul, [facility] [address], [place] [address] 7472 Jun, [facility] [address], [place] [address] 7641 Jun, [facility] [address], [place] [address]- 7476 Jun, [facility] [id number] [place] [address] 66244- 5121 May, [facility] [address], [place] [address] 5642 May, Bipolar I disorder, most recent episode (or current) mixed, moderate 296.62 [facility] [address], [place] [address] 9677 16 May, 2015 [facility] [address], [place] [address] 0318 May, Bipolar I disorder, most recent episode (or current) mixed, moderate 296.62 and Major depressive disorder, recurrent episode, severe, specified as with psychotic behavior 296.34 [facility] [address], [place] [address]- 1794 May, Bipolar I disorder, most recent episode (or current) mixed, moderate 296.62 [facility] [address], [place] [address]- 2328 May, [facility] [id number] [address] 2360 Apr, [facility] [id number] [place] [address] 80094- 0286 Apr, [facility] [id number] [place] [address] 70930- 5013 Apr, Unspecified disorder of kidney and ureter 593.9 and Diabetes mellitus type 2, uncontrolled 250.02 [facility] [id number] [place] [address] 19030- 2395 Apr, [facility] [id number] [place] [address] 53069- 5163 Apr, [facility] [id number] [place] [address] 54459- 8166 Apr, [facility] [id number] [place] [address] 27514- 7043 Apr, [facility] [id number] [place] [address] 29553- 1854 Apr, Diabetes mellitus type II, uncontrolled 250.02 [facility] [id number] [place] [address] 08153- 9822 Apr, [facility] [id number] [place] [address] 08614- 1045 Mar, [facility] [id number] [place] [address] 18902- 5691 Mar, [facility] [id number] [place] [address] 62952- 9315 Mar, [facility] [id number] [place] [address] 28883- 0134 Mar, Major depressive disorder, recurrent episode, severe, specified as with psychotic behavior 296.34 and Bipolar I disorder, most recent episode (or current) mixed, moderate 296.62 [facility] [id number] [place] [address] 74483- 9695 Mar, Diabetes 250.00 ; Anuria 788.5 ; Nausea and vomiting 787.01 and Diarrhea 787.91 [facility] [id number] [place] [address] 18035- 3741 Mar, Diabetes 250.00 [facility] [address], [place] [address]- 2293 Mar, [facility] [id number] [place] [address] 04096- 6900 Mar, Diabetes 250.00 [facility] [id number] [place] [address] 86939- 7215 Mar, [facility] [id number] [place] [address] 39718- 0148 Mar, [facility] [id number] [place] [address] 51225- 2886 Mar, [facility] [id number] [place] [address] 37856- 9643 Mar, [facility] [address], [place] [address]- 9424 Mar, Bipolar I disorder, most recent episode (or current) mixed, moderate 296.62 and Major depressive disorder, recurrent episode, severe, specified as with psychotic behavior 296.34 [facility] [address], [place] [address]- 0796 Mar, Magnesium deficiency 275.2 ; Hypokalemia 276.8 ; Nausea & vomiting 787.01 and Diabetes mellitus type 2, uncontrolled 250.02 [facility] [address], [place] [address]- 8076 Feb, [facility] [id number] [place] [address] 57129- 3671 Feb, Bipolar I disorder, most recent episode (or current) mixed, moderate 296.62 [facility] [id number] [place] [address] 30850- 3060 Feb, Nausea and vomiting 787.01 ; Left elbow pain 719.42 ; Anuria 788.5 and Diabetes 250.00 [facility] [id number] [place] [address] 13088- 5247 Feb, [facility] [id number] [place] [address] 01672- 3642 Feb, Hypopotassemia 276.8 and Hypokalemia 276.8 [facility] [id number] [place] [address] 34566- 1584 Feb, Hypopotassemia 276.8 and Hypokalemia 276.8 [facility] [address] [address]- 1414 Feb, Seborrheic keratoses 702.19 [facility] [id number] [place] [address] 36753- 6828 Feb, Hypopotassemia 276.8 and Low magnesium levels 275.2 [facility] [id number] [place] [address] 22614- 9463 January, [facility] [id number] [place] [address] 65768- 8938 January, [facility] [id number] [place] [address] 62543- 8120 January, [facility] [id number] [place] [address] 70683- 7926 January, Scalp lesion 709.9 [facility] [id number] [place] [address] 49282- 4119 January, [facility] [id number] [place] [address] 90774- 8054 Dec, Tear of medial cartilage or meniscus of knee, current 836.0 and 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 [facility] [id number] [place] [address] 14271- 4274 Dec, [facility] [address] [address]- 8641 29 Dec, 2014 [facility] [address] [id number] [place] [address]- 3549 28 Dec, 2014 Squamous cell carcinoma, 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 [facility] [place] [facility] [address] [id number] [place] [address]- 1359 14 Dec, 2014 [facility] [place] [facility] [address] [id number] [place] [address]- 2599 13 Dec, 2014 [facility] [place] [facility] [address] [id number] [place] [address]- 9014 27 Nov, 2014 [facility] [place] [facility] [address] [id number] [place] [address]- 4821 Nov, [facility] [place] [facility] [address] [id number] [place] [address]- 9283 Nov, [facility] [place] [facility] [address] [id number] [place] [address]- 5095 Nov, [facility] [place] [facility] [address] [facility] [id number] [place] [address]- 5058 Nov, [facility] [place] [facility] [address] [facility] [id number] [place] [address]- 7001 Nov, [facility] [place] [facility] [address] [facility] [id number] [place] [address]- 1424 Nov, [facility] [place] [facility] [address] [id number], [place] [address]- 6131 Nov, [facility] [place] [facility] [address] [id number] [place] [address]- 2792 Nov, [facility] [place] [facility] [address] [id number] [place] 2656 Nov, [facility] [place] [facility] [address] [id number] [place] [address]- 6522 Nov, [facility] [place] [facility] [address] [id number], [place] [address]- 5214 Nov, [facility] [place] [facility] [address] [id number] [place] [address]- 1492 Oct, 2014 [facility] [place] [facility] [address] [id number] [place] [address]- 6098 Oct, 2014 [facility] [place] [facility] [address] [facility] [id number] [place] [address]- 6996 Oct, 2014 [facility] [place] [facility] [address] [facility] [id number] [place] [address]- 3278 Oct, 2014 [facility] [place] [facility] [address] [id number] [place] [address]- 0017 Oct, 2014 [facility] [place] [facility] [address] [facility] [id number] [place] [address]- 3621 Oct, 2014 [facility] [place] [facility] [address] [facility] [id number] [place] [address]- 3814 Oct, 2014 [facility] [place] [facility] [address] [facility] [id number] [place] [address]- 5103 Oct, [facility] [place] [facility] [address] [facility] [id number] [place] [address]- 1472 Oct, [facility] [place] [facility] [address] [facility] [id number] [place] [address]- 7125 Sep, [facility] [place] [facility] [address] [facility] [id number] [place] [address]- 9678 Sep, [facility] [place] [facility] [address] [facility] [id number] [address]- 8012 Sep, [facility] [place] [facility] [address] [id number] [place] [address]- 9684 Sep, [facility] [place] [facility] [address] [facility] [id number] [place] [address]- 3166 Sep, [facility] [place] [facility] [address] [facility] [id number], [place] [address]- 2140 Sep, [facility] [place] [facility] [address] [id number] [place] [address]- 7925 Sep, [facility] [place] [facility] [address] [id number] [place] [address]- 1257 Sep, [facility] [place] [facility] [address] [id number] [place] [address]- 1562 Sep, [facility] [place] [facility] [address] [id number] [place] [address]- 4228 Sep, [facility] [place] [facility] [address] [id number] [place] [address]- 5934 Sep, [facility] [place] [facility] [address] [id number] [place] [address]- 9126 Sep, [facility] [place] [facility] [address] [id number] [place] [address]- 8809 Sep, [facility] [place] [facility] [address] [id number] [place] [address]- 5490 Sep, [facility] [place] [facility] [address] [id number] [place] [address]- 5147 Sep, [facility] [place] [facility] [address] [id number] [place] [address]- 2831 Sep, [facility] [place] [facility] [address] [id number] [place] [address]- 0947 Aug, [facility] [place] [facility] [address] [id number], [place] [address]- 9905 Aug, [facility] [place] [facility] [address] [id number] [place] [address]- 3332 Aug, [facility] [place] [facility] [address] [id number] [place] [address]- 8877 Aug, [facility] [place] [facility] [address] [id number] [place] [address]- 6814 Aug, [facility] [place] [facility] [address] [id number] [place] [address]- 7074 Aug, [facility] [address] [id number] [place] [address]- 4345 Aug, [facility] [address] [id number] [place] 1097 Aug, [facility] [address] [id number] [place] [address]- 4417 Aug, [facility] [address] [id number] [place] [address]- 9541 Aug, [facility] [address] [id number] [place] [address]- 2424 Aug, [facility] [address] [place] [id number] Aug, [facility] [address] [id number] [place] [address]- 7598 Aug, [facility] [address] [id number] [place] [address]- 5723 Aug, [facility] [address] [id number] [place] [address]- 7653 Aug, [facility] [address] [id number] [place] [address]- 7600 Aug, [facility] [address] [id number] [place] [address]- 1772 Aug, [facility] [place] [facility] [address] [id number] [place] [address]- 0660 Aug, [facility] [place] [facility] [address] [id number] [place] [address]- 8333 Aug, [facility] [address] [id number] [place] [address]- 3024 Aug, [facility] [place] [facility] [address] [id number] [place] [address]- 4271 Aug, [facility] [address] [id number] [place] 7001 08 Aug, 2014 [facility] [place] [facility] [address] [id number] [place] 9171 Aug, [facility] [place] [facility] [address] [id number] [place] 1837 Aug, [facility] [place] [facility] [address] [id number] [place] 8661 Aug, [facility] [place] [facility] [address] [id number] [place] [address]- 0312 Aug, [facility] [place] [facility] [address] [id number] [place] 2854 Aug, [facility] [place] [facility] [address] [id number] [place] [address]- 4412 Aug, [facility] [place] [facility] [address] [id number] [place] [address]- 0838 Aug, [facility] [place] [facility] [address] [id number] [place] [address]- 5369 Aug, [facility] [place] [facility] [address] [id number] [place] [address]- 4559 Jul, [facility] [place] [facility] [address] [facility] [id number] [place] [address]- 1775 Jul, [facility] [place] [facility] [address] [id number] [place] [address]- 5742 Jul, [facility] [place] [facility] [address] [id number] [place] [address]- 4882 Jul, [facility] [place] [facility] [address] [id number] [place] [address]- 9492 Jul, [facility] [place] [facility] [address] [id number] [place] [address]- 4982 Jul, [facility] [place] [facility] [address] [id number] [place] 0082 Jul, [facility] [place] [facility] [address] [id number] [place] [address]- 5404 Jul, [facility] [place] [facility] [address] [id number] [place] [address]- 9724 Jul, [facility] [place] [facility] [address] [id number] [place] [address]- 8030 Jul, [facility] [place] [facility] [address] [id number] [place] [address]- 8833 Jun, [facility] [place] [facility] [address] [id number] [place] [address]- 4095 Jun, [facility] [place] [facility] [address] [id number] [place] [address]- 0644 Jun, [facility] [place] [facility] [address] [id number] [place] [address]- 5769 Jun, [facility] [place] [facility] [address] [id number] [place] [address]- 4081 Jun, [facility] [place] [facility] [address] [id number] [place] [address]- 8830 Jun, [facility] [place] [facility] [address] [id number] [place] [address]- 6585 Jun, [facility] [place] [facility] [address] [id number] [place] [address]- 6764 Jun, [facility] [place] [facility] [address] [id number] [place] [address]- 7337 Jun, [facility] [place] [facility] [address] [id number] [place] [address]- 6233 Jun, [facility] [place] [facility] [address] [id number] [place] [address]- 9627 May, [facility] [place] [facility] [address] [id number] [place] [address]- 2794 29 May, 2014 [facility] [place] [facility] [address] [id number] [place] [address]- 7158 26 May, 2013 [facility] [place] [facility] [address] [id number] [place] [address] 2546 26 Sep, 2013 [facility] [place] [facility] [address] [id number] [place] [address] 2546 17 May, 2013 [facility] [place] [facility] [address] [id number] [place] [address] 2546 17 May, 2013 [facility] [place] [facility] [address] [id number] [place] [address] 2546 15 May, 2013 [facility] [place] [facility] [address] [id number] [place] [address] 2546 15 May, 2013 [facility] [place] [facility] [address] [id number] [place] [address]- 0137 15 May, 2013 [facility] [place] [facility] [address] [id number] [place] [address]- 4423 15 May, 2013 [facility] [place] [facility] [address] [id number] [place] [address] 2540 10 May, 2013 [facility] [place] [facility] [address] [id number] [place] [address] 254 10 May, 2013 [facility] [place] [facility] [address] [id number] [place] [address] 2540 09 May, 2013 [facility] [place] [facility] [address] [id number] [place] [address] 2541 09 May, 2013 [facility] [place] [facility] [address] [id number] [place] [address]- 254 04 May, 2013 [facility] [place] [facility] [address] [id number] [place] [address] 2547 May, 2013 [facility] [place] [facility] [address] [id number] [place] [address]- 0821 Apr, [facility] [place] [facility] [address] [id number] [place] [address]- 254 Apr, [facility] [place] [facility] [address] [id number] [place] [address]- 2817 Apr, [facility] [place] [facility] [address] [id number] [facility] [place] [address]- 3693 Apr, [facility] [place] [facility] [address] [id number] [place] [address]- 0347 Apr, [facility] [place] [facility] [address] [id number] [place] [address]- 4859 Apr, [facility] [place] [facility] [address] [id number] [place] [address]- 8216 Apr, [facility] [place] [facility] [address] [id number] [place] [address]- 8879 Apr, [facility] [place] [facility] [address] [id number] [place] [address]- 3157 Apr, [facility] [place] [facility] [address] [id number] [place] [address]- 9867 Apr, [facility] [place] [facility] [address] [id number] [place] [address]- 5020 Apr, [facility] [place] [facility] [address] [id number] [place] [address]- 6414 Apr, [facility] [place] [facility] [address] [id number] [place] [address]- 1298 Apr, [facility] [place] [facility] [address] [id number] [place] [address]- 8438 Apr, [facility] [place] [facility] [address] [id number] [place] [address]- 3763 Apr, [facility] [place] [facility] [address] [id number] [place] [address]- 2122 Mar, [facility] [place] [facility] [address] [id number] [place] [address]- 5478 Mar, [facility] [place] [facility] [address] [id number] [place] [address]- 5037 Mar, [facility] [place] [facility] [address] [id number] [place] [address]- 8337 Mar, 2013 [facility] [place] [facility] [address] [id number] [place] [address]- 6149 Mar, 2013 [facility] [place] [facility] [address] [id number] [place] [address]- 0479 Mar, 2013 [facility] [place] [facility] [address] [id number] [place] [address]- 1124 Mar, 2013 [facility] [place] [facility] [address] [id number] [place] [address] Mar, 2013 [facility] [place] [facility] [address] [id number] [place] [address] Mar, 2013 [facility] [place] [facility] [address] [id number] [place] [address] Mar, 2013 [facility] [place] [facility] [address] [id number] [place] [address] Mar, 2013 [facility] [place] [facility] [address] [id number] [place] [address] Mar, 2013 [facility] [place] [facility] [address] [id number] [place] [address] Mar, 2013 [facility] [place] [facility] [address] [id number] [place] [address] Mar, 2013 [facility] [place] [facility] [address] [id number] [place] [address] Mar, 2013 [facility] [place] [facility] [address] [id number] [place] [address] Mar, 2013 [facility] [place] [facility] [address] [id number] [place] [address] Mar, 2013 [facility] [place] [facility] [address] [id number] [place] [address] Mar, 2013 [facility] [place] [facility] [address] [id number] [place] [address] Feb, [facility] [place] [facility] [address] [id number] [place] [address] Feb, [facility] [place] [facility] [address] [id number] [place] [address]- [address] Feb, [facility] [place] [facility] [address] [id number] [place] [address] Feb, [facility] [place] [facility] [address] [id number] [place] [address] Feb, [facility] [place] [facility] [address] [id number] [place] [address] Feb, [facility] [place] [facility] [address] [id number] [place] [address] Feb, [facility] [place] [facility] [address] [id number] [place] [address] Feb, [facility] [place] [facility] [address] [id number] [place] [address]- [address] Feb, [facility] [place] [facility] [address] [id number] [place] [address]- [address] Feb, [facility] [place] [facility] [address] [facility] [id number] [place] [address]- [address] Feb, [facility] [place] [facility] [address] [id number] [place] [address]- [address] Feb, [facility] [place] [facility] [address] [id number] [place] [address]- [address] Feb, [facility] [place] [facility] [address] [id number] [place] [address]- [address] Feb, [facility] [place] [facility] [address] [id number] [place] [address] January, [facility] [place] [facility] [address] [id number] [place] [address] January, [facility] [place] [facility] [address] [id number] [place] [address] January, [facility] [place] [facility] [address] [id number] [place] [address] January, [facility] [place] [facility] [address] [id number] [place] [address] January, [facility] [place] [facility] [address] [id number] [place] [address] January, [facility] [place] [facility] [address] [id number] [place] [address] January, [facility] [place] [facility] [address] [id number] [place] [address]- [address] January, [facility] [place] [facility] [address] [id number] [place] [address] January, [facility] [place] [facility] [address] [id number] [place] [address] January, [facility] [place] [facility] [address] [id number] [place] [address] January, [facility] [place] [facility] [address] [id number] [place] [address]- [address] January, [facility] [place] [facility] [address] [id number] [place] [address] January, [facility] [place] [facility] [address] [id number] [place] [address]- [address] January, [facility] [place] [facility] [address] [id number] [place] [address]- [address] Dec, [facility] [place] [facility] [address] [id number] [place] [address]- [address] Dec, [facility] [place] [facility] [address] [id number] [place] [address]- [address] Dec, [facility] [place] [facility] [address] [id number] [place] [address]- [address] Dec, [facility] [place] [facility] [address] [id number] [place] [address]- [address] Dec, [facility] [place] [facility] [address] [id number] [place] [address]- 7969 Dec, [facility] [place] [facility] [address] [id number] [place] [address] Dec, [facility] [place] [facility] [address] [id number] [place] [address]- 9469 Dec, [facility] [place] [facility] [address] [id number] [place] [address]- [address]45 Dec, [facility] [place] [facility] [address] [id number] [place] [address]- [address] Dec, [facility] [place] [facility] [address] [id number] [place] [address]- [address] Nov, [facility] [place] [facility] [address] [id number] [place] [address]- [address] Nov, [facility] [place] [facility] [address] [id number] [place] [address]- [address]85 Nov, [facility] [place] [facility] [address] [id number] [place] [address]- [address] Nov, [facility] [place] [facility] [address] [id number] [place] [address]- [address] Nov, [facility] [place] [facility] [address] [id number], [place] [address] Nov, [facility] [place] [facility] [address] [id number] [place] [address] Nov, [facility] [place] [facility] [address] [id number] [place] [address]- [address] Nov, [facility] [place] [facility] [address] [id number] [place] [address]- [address]87 Nov, [facility] [place] [facility] [address] [id number] [place] [address]- 6235 Nov, [facility] [place] [facility] [address] [id number] [place] [address] Oct, [facility] [place] [facility] [address] [id number] [place] [address] 4966 Oct, [facility] [place] [facility] [address] [id number] [place] [address] 0504 Oct, [facility] [place] [facility] [address] [id number] [place] [address] 2926 Oct, [facility] [place] [facility] [address] [facility] [id number] [place] [address]- 6692 Oct, [facility] [place] [facility] [address] [facility] [id number] [place] [address]- 0010 Oct, [facility] [place] [facility] [address] [facility] [id number] [place] [address]- 5257 Oct, [facility] [place] [facility] [address] [facility] [id number] [place] [address]- 3679 Oct, [facility] [place] [facility] [address] [facility] [id number] [place] [address]- 9261 Oct, [facility] [place] [facility] [address] [facility] [id number] [place] [address]- 4663 Oct, [facility] [place] [facility] [address] [facility] [id number], [place] [address] Oct, [facility] [place] [facility] [address] [facility] [id number] [place] [address]- 3529 Oct, [facility] [place] [facility] [address] [facility] [id number] [place] [address]- 2789 Oct, [facility] [place] [facility] [address] [facility] [id number] [place] [address]- 5244 Oct, [facility] [place] [facility] [address] [facility] [id number], [place] [address] 9475 Sep, [facility] [address] [id number] [place] [address]- 0980 Sep, [facility] [place] [facility] [address] [id number] [place] [address]- 2811 Sep, [facility] [place] [facility] [address] [id number] [place] [address]- 0347 15 Sep, 2013 [facility] [place] [facility] [address] [id number] [place] [address]- 0752 14 Sep, 2013 [facility] [place] [facility] [address] [id number] [place] [address]- 1652 Sep, [facility] [place] [facility] [address] [id number] [place] [address]- 2056 14 Sep, 2013 [facility] [place] [facility] [address] [id number] [place] [address]- 9726 Sep, [facility] [place] [facility] [address] [id number] [place] [address]- 0516 Sep, [facility] [place] [facility] [address] [id number] [place] [address]- 8491 Sep, [facility] [place] [facility] [address] [id number] [place] [address]- 8507 Aug, [facility] [place] [facility] [address] [id number] [place] [address]- 0447 Aug, [facility] [place] [facility] [address] [id number] [place] [address]- 4084 Jul, [facility] [place] [facility] [address] [id number] [place] [address]- 4364 Jul, [facility] [place] [facility] [address] [id number] [place] [address]- 2360 Jul, [facility] [place] [facility] [address] [id number] [place] [address]- 3656 Jul, [facility] [place] [facility] [address] [id number] [place] [address]- 6300 13 Jul, 2013 [facility] [place] [facility] [address] [id number] [place] [address]- 9886 13 Jul, 2013 [facility] [place] [facility] [address] [id number] [place] [address]- 3746 Jul, [facility] [place] [facility] [address] [id number] [place] [address]- 8015 Jul, [facility] [place] [facility] [address] [id number] [place] [address]- 5491 Jul, [facility] [place] [facility] [address] [id number] [place] [address]- 9969 Jul, [facility] [place] [facility] [address] [id number] [place] [address]- 6091 Jul, [facility] [place] [facility] [address] [id number] [place] [address]- 0922 Jul, [facility] [place] [facility] [address] [id number] [place] [address]- 5541 Jul, [facility] [place] [facility] [address] [id number] [place] [address]- 3403 Jul, [facility] [place] [facility] [address] [id number] [place] [address]- 5771 Jul, [facility] [place] [facility] [address] [id number] [place] [address]- 0832 Jul, [facility] [place] [facility] [address] [id number] [place] [address]- 8366 Jul, [facility] [place] [facility] [address] [id number] [place] [address]- 2346 Jul, [facility] [place] [facility] [address] [id number] [place] [address]- 7575 Jul, [facility] [place] [facility] [address] [id number] [place] [address]- 7968 Jun, [facility] [place] [facility] [address] [id number] [place] [address]- 3156 16 Jun, 2012 [facility] [place] [facility] [address] [id number] [place] [address]- 5222 16 Jun, 2012 [facility] [place] [facility] [address] [id number] [place] [address]- 8799 16 Jun, 2012 [facility] [place] [facility] [address] [id number] [place] [address]- 4443 16 Jun, 2012 [facility] [place] [facility] [address] [id number] [place] [address]- 5190 16 Jun, 2012 [facility] [place] [facility] [address] [id number] [place] [address]- 1195 10 Jun, 2012 [facility] [place] [facility] [address] [id number] [place] [address]- 3486 10 Jun, 2012 [facility] [place] [facility] [address] [id number], [place] [address]- 5945 09 Jun, 2012 [facility] [place] [facility] [address] [id number] [place] [address]- 1028 09 Jun, 2013 [facility] [place] [facility] [address] [id number], [place] [address]- 4391 Jun, [facility] [place] [facility] [address] [id number], [place] [address]- 0906 26 Sep, 2012 [facility] [place] [facility] [address] [id number], [place] [address]- 8642 25 Sep, 2012 [facility] [place] [facility] [address] [id number] [place] [address]- 6817 19 Sep, 2012 [facility] [place] [facility] [address] [id number], [place] [address]- 0299 17 Sep, 2012 [facility] [place] [facility] [address] [id number], [place] [address]- 0669 11 Sep, 2012 [facility] [place] [facility] [address] [id number] [place] [address]- 5644 May, [facility] [place] [facility] [address] [id number] [place] [address]- 2016 May, [facility] [place] [facility] [address] [id number] [place] [address]- 3309 May, [facility] [place] [facility] [address] [id number] [place] [address]- 4329 Apr, [facility] [place] [facility] [address] [id number] [place] [address]- 3391 Apr, [facility] [place] [facility] [address] [id number] [place] [address]- 4849 Apr, [facility] [place] [facility] [address] [id number] [place] [address]- 9243 Apr, [facility] [place] [facility] [address] [id number] [place] [address]- 5763 Apr, [facility] [place] [facility] [address] [id number] [place] [address]- 9236 Mar, [facility] [place] [facility] [address] [id number] [place] [address]- 4279 Mar, [facility] [place] [facility] [address] [id number] [place] [address]- 2810 Mar, [facility] [place] [facility] [address] [id number] [place] [address]- 5984 Mar, [facility] [place] [facility] [address] [id number] [place] [address]- 5569 Mar, [facility] [place] [facility] [address] [id number] [place] [address]- 4028 Mar, [facility] [place] [facility] [address] [id number] [place] [address]- 2330 Mar, [facility] [place] [facility] [address] [id number] [place] [address]- 2614 Mar, [facility] [place] [facility] [address] [id number] [place] [address]- 1068 Feb, [facility] [address] [id number] [place] [address]- 6280 Feb, [facility] [place] [facility] [address] [id number] [place] [address]- 3915 January, [facility] [place] [facility] [address] [id number] [place] [address]- 3181 January, [facility] [address] [id number] [place] [address]- 3040 Dec, [facility] [place] [facility] [address] [id number] [place] [address]- 0533 Dec, [facility] [address] [id number] [place] [address]- 4441 Nov, [facility] [address] [id number] [place] [address]- 2823 Nov, [facility] [address] [id number] [place] [address]- 0484 Nov, [facility] [address] [id number] [place] [address]- 2445 Nov, [facility] [place] [facility] [address] [id number] [place] [address]- 5474 Oct, [facility] [place] [facility] [address] [id number] [place] [address]- 9691 Oct, [facility] [place] [facility] [address] [id number] [place] [address]- 7373 Oct, [facility] [place] [facility] [address] [id number] [place] [address]- 4283 Oct, [facility] [place] [facility] [address] [id number] [place] [address]- 7723 Oct, [facility] [place] [facility] [address] [id number] [place] [address]- 0886 14 Oct, 2012 [facility] [address] [id number] [place] [address]- 0144 08 Oct, 2012 [facility] [address] [id number] [place] [address]- 8706 07 Oct, 2012 [facility] [address] [id number] [place] [address]- 3516 03 Oct, 2012 [facility] [address] [id number] [place] [address]- 2160 30 Sep, 2012 [facility] [address] [id number] [place] [address]- 3823 29 Sep, 2012 [facility] [address] [id number] [place] [address]- 4909 Sep, [facility] [address] [id number] [place] [address]- 7385 Sep, [facility] [address] [id number] [place] [address]- 5357 17 Sep, 2012 [facility] [address] [id number] [place] [address]- 3886 Sep, [facility] [address] [id number] [place] [address]- 3974 Sep, [facility] [address] [id number] [place] [address]- 0436 Sep, [facility] [address] [id number] [place] [address]- 2177 Aug, [facility] [address] [id number] [place] [address]- 0243 Aug, [facility] [address] [id number] [place] [address]- 1502 Aug, [facility] [address] [id number] [place] [address]- 3136 Aug, [facility] [place] [facility] [address] [id number] [place] [address]- 1843 Aug, [facility] [place] [facility] [address] [id number] [place] [address]- 7869 Aug, [facility] [place] [facility] [address] [id number] [place] [address]- 4857 Aug, [facility] [place] [facility] [address] [id number] [place] [address]- 0919 Aug, [facility] [place] [facility] [address] [id number] [place] [address]- 2504 Jul, [facility] [place] [facility] [address] [id number] [place] [address]- 9433 Jul, [facility] [place] [facility] [address] [id number] [place] [address]- 2423 Jul, [facility] [place] [facility] [address] [id number] [place] [address]- 8587 Jul, [facility] [place] [facility] [address] [id number] [place] [address]- 4556 Jul, [facility] [place] [facility] [address] [id number] [place] [address]- 1304 Jul, [facility] [place] [facility] [address] [id number] [place] [address]- 1226 Jun, [facility] [place] [facility] [address] [id number] [place] [address]- 6807 Jun, [facility] [place] [facility] [address] [id number] [place] [address]- 8556 Jun, [facility] [place] [facility] [address] [id number] [place] [address]- 9286 Jun, [facility] [place] [facility] [address] [id number] [place] [address]- 4476 Jun, [facility] [place] [facility] [address] [id number] [place] [address]- 2616 Jun, [facility] [place] [facility] [address] [id number] [place] [address]- 8721 19 Jun, 2012 [facility] [place] [facility] [address] [id number] [place] [address]- 0556 Jun, [facility] [place] [facility] [address] [id number] [place] [address]- 9652 Jun, [facility] [place] [facility] [address] [id number] [place] [address]- 3018 26 May, 2012 [facility] [place] [facility] [address] [id number] [place] [address]- 5684 24 May, 2012 [facility] [place] [facility] [address] [id number] [place] [address]- 2083 18 May, 2012 [facility] [place] [facility] [address] [id number] [place] [address]- 8111 30 Apr, 2012 [facility] [place] [facility] [address] [id number] [place] [address]- 4059 Apr, [facility] [place] [facility] [address] [id number] [place] [address]- 6696 Apr, [facility] [place] [facility] [address] [id number] [place] [address]- 4739 Apr, [facility] [place] [facility] [address] [id number] [place] [address]- 3670 Apr, [facility] [place] [facility] [address] [id number] [place] [address]- 1838 Apr, [facility] [place] [facility] [address] [id number] [place] [address]- 3149 Mar, [facility] [place] [facility] [address] [id number] [place]80 Mar, [facility] [place] [facility] [address] [id number] [place] [address]- 3293 Mar, [facility] [place] [facility] [address] [id number] [place] [address]- 4834 Mar, [facility] [address] [id number] [place] [address]- 6312 Feb, [facility] [address] [id number] [place] [address]- 5501 Feb, [facility] [address] [id number] [place] [address]- 1822 Feb, [facility] [address] [id number] [place] [address]- 1693 Feb, [facility] [address] [id number] [place] [address]- 6494 Feb, [facility] [address] [id number] [place] [address]- 9295 January, [facility] [address] [id number] [place] [address]- 2236 January, [facility] [address] [id number] [place] [address]- 9446 January, [facility] [address] [id number] [place] [address]- 8899 January, [facility] [address] [id number] [place] [address]- 1808 January, [facility] [address] [id number] [place] [address]- 9927 January, [facility] [address] [id number] [place] [address]- 3652 Dec, [facility] [place] [facility] [address] [id number] [place] [address]- 9769 Dec, [facility] [address] [id number] [place] [address]- 9508 Dec, [facility] [address] [id number] [place] [address]- 2748 Dec, [facility] [address] [id number] [place] [address]- 1151 06 Dec, 2011 [facility] [place] [facility] [address] [id number] [place] [address]- 2136 27 Nov, 2011 [facility] [place] [facility] [address] [id number] [place] [address]- 2066 14 Nov, 2011 [facility] [place] [facility] [address] [id number] [place] [address]- 5106 12 Nov, 2011 [facility] [place] [facility] [address] [id number] [place] [address]- 3629 07 Nov, 2011 [facility] [place] [facility] [address] [id number] [place] [address]- 2326 29 Oct, 2011 [facility] [place] [facility] [address] [id number] [place] [address]- 3106 28 Oct, 2011 [facility] [place] [facility] [address] [id number] [place] [address]- 2370 24 Oct, 2011 [facility] [place] [facility] [address] [id number] [place] [address]- 2042 13 Oct, 2011 [facility] [place] [facility] [address] [facility] [id number] [place] [address]- 1386 08 Oct, 2011 [facility] [place] [facility] [address] [id number] [place] [address]- 4848 31 Sep, 2011 [facility] [place] [facility] [address] [id number] [place] [address]- 6816 30 Sep, 2011 [facility] [place] [facility] [address] [id number] [place] [address]- 8571 Sep, [facility] [place] [facility] [address] [id number] [place] [address]- 7016 10 Sep, 2011 [facility] [place] [facility] [address] [id number] [place] [address]- 9906 05 Sep, 2011 [facility] [place] [facility] [address] [id number] [place] [address]- 8637 Sep, [facility] [place] [facility] [address] [id number] [place] [address]- 2799 Aug, [facility] [place] [facility] [address] [id number] [place] 1518 Aug, [facility] [place] [facility] [address] [id number] [place] [address]- 8983 Aug, [facility] [place] [facility] [address] [id number] [place] [address]- 8542 Jul, [facility] [place] [facility] [address] [id number] [place] [address]- 7476 Jul, [facility] [place] [facility] [address] [id number] [place] [address]- 5233 Jul, [facility] [place] [facility] [address] [id number] [place] [address]- 3293 Jul, [facility] [place] [facility] [address] [id number] [place] [address]- 6838 Jun, [facility] [place] [facility] [address] [id number] [place] [address]- 1150 Jun, [facility] [place] [facility] [address] [facility] [id number] [place] [address]- 7701 Jun, [facility] [place] [facility] [address] [id number] [place] [address]- 6590 Jun, [facility] [place] [facility] [address] [id number] [place] [address]- 6649 Jun, [facility] [place] [facility] [address] [id number] [place] [address]- 9887 Jun, [facility] [place] [facility] [address] [facility] [id number] [place] [address]- 7386 Mar, [facility] [place] [facility] [address] [id number] [place] 8116 Dec, [facility] [place] [facility] [address] [id number] [place] [address] 11 Dec, 2010 [facility] [address] [id number] [place] [address] 18 Nov, 2010 [facility] [address] [id number] [place] [address] 16 Nov, 2010 [facility] [address] [id number] [place] [address] 10 Sep, 2010 [facility] [address] [id number] [place] [address] 31 Aug, 2010 [facility] [address] [id number] [place] [address] 29 Aug, 2010 [facility] [address] [id number] [place] [address] 29 Aug, 2010 [facility] [address] [id number] [place] [address] 29 Aug, 2010 [facility] [address] [id number] [place] [address] Aug, [facility] [address] [id number] [place] [address] 14 Aug, 2010 [facility] [address] [id number] [place] [address] 08 Aug, 2010 [facility] [address] [id number] [place] [address] 08 Aug, 2010 [facility] [address] [id number] [place] [address] 07 Aug, 2010 [facility] [place] [facility] [address] [id number] [place] [address] 06 Aug, 2010 [facility] [address] [id number] [place] [address] 06 Aug, 2010 [facility] [address] [id number] [place] [address] Aug, [facility] [place] [facility] [address] [id number] [place] [address] Jul, [facility] [place] [facility] [address] [id number] [place] [address] Jul, [facility] [place] [facility] [address] [id number] [place] [address] Jul, [facility] [place] [facility] [address] [id number] [place] [address] Jul, [facility] [place] [facility] [address] [id number] [place] [address] Jul, [facility] [place] [facility] [address] [id number] [place] [address] Jul, [facility] [place] [facility] [address] [id number] [place] [address] Jun, [facility] [place] [facility] [address] [id number] [place] [address] Jun, [facility] [place] [facility] [address] [id number] [place] [address] Jun, [facility] [place] [facility] [address] [id number] [place] [address] Jun, [facility] [place] [facility] [address] [id number], [place] [address] Apr, [facility] [place] [facility] [address] [id number], [place] [address] Mar, [facility] [place] [facility] [address] [id number] [place] [address] Feb, [facility] [place] [facility] [address] [id number] [place] [address] January, [facility] [place] [facility] [address] [id number] [place] [address] 15 Dec, 2009 [facility] [place] [facility] [address] [id number] [place] [address] Nov, [facility] [address] [id number] [place] [address] 31 Aug, 2009 [facility] [place] [facility] [address] [id number] [place] [address] Aug, [facility] [address] [id number] [place] [address] Aug, [facility] [place] [facility] [address] [id number] [place] [address] 94[address] Jul, [facility] [address] [id number] [place] [address], [place] [address] Jul, [facility] [place] [facility] [address] [facility] [id number] [place] [address] Jul, [facility] [place] [facility] [address] [facility] [id number] [place] [address] 30 Jun, 2009 [facility] [address] [id number] [place] [address] Jun, [facility] [place] [facility] [address] [facility] [id number] [place] [address] Jun, [facility] [address] [facility] [id number], [place] [address] Jun, [facility] [place] [facility] [address] [id number], [place] [address] Jun, [facility] [place] [facility] [address] [id number], [place] [address] Jun, [facility] [place] [facility] [address] [id number] [place] [address] Apr, [facility] [place] [facility] [address] [facility] [id number], [place] [address] Apr, [facility] [place] [facility] [address] [id number], [place] [address] Feb, [facility] [address] [facility] [id number] [place] [address] January, [facility] [address] [facility] [id number] [place] [address] Dec, IMMUNIZATIONS No Known Immunizations SOCIAL HISTORY Never Assessed REASON FOR VISIT BH f/u, Depression and irritability. PLAN OF CARE Activity Details Follow Up Next available Reason:depression and irritability VITAL SIGNS MEDICATIONS Unknown Medications RESULTS No Results PROCEDURES Procedure Date Ordered Result Body Site [facility] VISIT MENTAL HEALTH ESTAB PT Sep 26, 2017 Psychotherapy, patient &/family, 45 minutes, established patient Sep 26, 2017 INSTRUCTIONS MEDICATIONS ADMINISTERED No Known Medications MEDICAL (GENERAL) HISTORY Type Description Date Medical History type II diabetes Medical History coronary artery disease stress test 01/5015 Medical History chronic obstructive pulmonary disease (COPD) Medical History gastroesophageal reflux disease (GERD) Medical History acute renal failure Medical History erectile dysfunction Medical History hyperlipidemia Medical History obesity Medical History skin cancer-basal cell R worship (removed) Medical History Arthritis Medical History degenerative [...] 2009 Surgical History colonoscopy 2009 ([facility]), 2013 ([place]) Surgical History heart 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 04/2014 Surgical History carotid US 05/2014 Surgical History resection of skin cancer from Right worship Surgical History Biopsy of Lung Bilateral/Left lung lymph node 09/2016 Surgical History Bone Marrow Biopsy Surgical History port in the right chest wall 12/2016 Hospitalization History [facility] low potassium, low magnesium, chest painina 01/2015 Hospitalization History inability to urinate 09/16/15 Hospitalization History [facility] early Hospitalization History hyperkalemia 10/2017 Hospitalization History fluid in lung
--- OUTSIDE RECORDS SUMMARY | 2018-08-08 12:38 | XMS REPORT ---
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 Name Role Phone ROSELINE LUIS Unavailable PROBLEMS Type Condition ICD9-CM Code TXS95-QS Code Onset Dates Condition Status SNOMED Code Problem Chronic lymphocytic leukemia C91.10 Active 38425950 Problem Insomnia, unspecified type G47.00 Active 302711178 Problem Lymphocytosis D72.820 Active 25835518 Problem Anxiety F41.9 Active 96114203 Problem Eye exam abnormal R93.8 Active 083690976 Problem Morbid obesity E66.01 Active 061645960 Problem Diabetic polyneuropathy associated with type 2 diabetes mellitus E11.42 Active 18147822 Problem Essential hypertension I10 Active 20021441 Problem Falling R29.6 Active 642741863 Problem 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 Active 462110221 Problem Cough R05 Active 46357735 Problem Dysuria R30.0 Active 52379310 Problem Eustachian tube dysfunction, unspecified laterality H69.80 Active 61972223 Problem Bilateral primary osteoarthritis of knee M17.0 Active 880811183 Problem Polyneuropathy associated with underlying disease G63 Active 819027022 Problem Anemia of chronic illness D63.8 Active 096922822 Problem Retinal edema H35.81 Active 0044927 Problem DM neuro manif type II E11.49 Active 30395456 Problem Diabetes E11.9 Active 63547462 Problem Hypokalemia E87.6 Active 87275010 Problem Benign prostatic hyperplasia with lower urinary tract symptoms, unspecified morphology N40.1 Active 614118694 Problem Reactive airway disease J45.909 Active 876636821587 Problem Bipolar I disorder, most recent episode (or current) mixed, moderate F31.62 Active 38065917 Problem Chronic pain G89.29 Active 42032529 Problem Leukocytosis D72.829 Active 468155817 ALLERGIES No Information ENCOUNTERS Encounter Location Date Diagnosis [facility], [place] [address], [place] [address] Mar, [facility], [place] [id number] [place] [address] 81588- 2998 Mar, [facility], [place] [id number] [place] [address] 51856- 7860 Mar, [facility], [place] [id number] [place] [address] 13083- 9444 Mar, [facility], [place] [id number] [place] [address] 83004- 9456 Feb, [facility], [place] [id number] [place] [address] 03734- 1196 Feb, Decubitus ulcer of right foot, stage 3 L89.893 and BMI 50.0- 59.9, adult Z68.43 [facility] [id number] [place] [address] 27267- 1463 Feb, Bipolar I disorder, most recent episode (or current) mixed, moderate F31.62 [facility], [place] [address], [place] [address] 0098 Feb, [facility], [place] [id number] [place] [address] 52411- 9918 January, [facility], [place] [id number] [place] [address] 28294- 5869 January, Chronic pain G89.29 [facility], [place] [id number] [place] [address] 92800- 7879 January, Bipolar I disorder, most recent episode (or current) mixed, moderate F31.62 [facility], [place] [id number] [place] [address] 15326- 0835 January, Bipolar I disorder, most recent episode (or current) mixed, moderate F31.62 [facility], [place] [id number] [place] [address] 01161- 1587 Dec, Bipolar I disorder, most recent episode (or current) mixed, moderate F31.62 and BMI 50.0-59.9, adult Z68.43 [facility] [address] 66008- 5795 Dec, Bipolar I disorder, most recent episode (or current) mixed, moderate F31.62 [facility] [id number] [place] [address] 84347- 0221 Dec, Chronic pain G89.29 [facility] [address] 68639- 0808 Dec, DM neuro manif type II E11.49 ; Right flank pain R10.9 ; senior living 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 Z79.891 ; Encounter for medication monitoring Z51.81 and BMI 50.0-59.9, adult Z68.43 [facility] [address] 49046- 8398 Dec, Bipolar I disorder, most recent episode (or current) mixed, moderate F31.62 [facility] [id number] [place] [address] 60285- 3229 Nov, Bipolar I disorder, most recent episode (or current) mixed, moderate F31.62 [facility] [id number] [place] [address] 92473- 6350 Nov, Chronic pain G89.29 [facility] [id number] [place] [address] 10712- 2445 Nov, Bipolar I disorder, most recent episode (or current) mixed, moderate F31.62 [facility] [id number] [place] [address] 65821- 3949 Nov, Hypokalemia E87.6 [facility] [id number] [place] [address] 30983- 6263 Nov, Bipolar I disorder, most recent episode (or current) mixed, moderate F31.62 [facility] [address] 62586- 6379 Oct, Chronic pain G89.29 [facility], [place] [id number] [place] [address] 03872- 0482 Oct, BMI 50.0-59.9, adult Z68.43 and Bipolar I disorder, most recent episode (or current) mixed, moderate F31.62 [facility], [place] [id number] [place] [address] 47225- 1897 Oct, Bipolar I disorder, most recent episode (or current) mixed, moderate F31.62 [facility], [place] [address] 33503- 4482 Oct, [facility] [address] 70415- 0557 Oct, Hypokalemia E87.6 [facility] [address] 58255- 3332 Oct, DM neuro manif type II E11.49 [facility], [place] [id number] [place] [address] 75742- 1732 Oct, Bipolar I disorder, most recent episode (or current) mixed, moderate F31.62 [facility], [place] [id number] [place] [address] 70122- 5568 Oct, Bipolar I disorder, most recent episode (or current) mixed, moderate F31.62 [facility] [id number] [place] [address] 87981- 9074 Oct, Hyperkalemia E87.5 ; Falling R29.6 ; BMI 50.0-59.9, adult Z68.43 and Acute left ankle pain M25.572 [facility] [address] 36616- 2108 Oct, DM neuro manif type II E11.49 [facility], [place] [id number] [place] [address] 93747- 8261 Oct, [facility] [id number] [place] [address] 71148- 4239 Sep, Chronic pain G89.29 [facility] [id number] [place] [address] 89532- 3549 Sep, [facility] [id number] [place] [address] 75310- 9599 Sep, Bilateral primary osteoarthritis of knee M17.0 [facility] [address] 94969- 5561 Sep, Generalized edema R60.[address] 13524- 0173 Sep, Bipolar I disorder, most recent episode (or current) mixed, moderate F31.62 [facility] [id number] [place] [address] 17117- 9525 Sep, Hypoxia R09.02 ; Other hypervolemia E87.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 ; Anemia of chronic illness D63.8 and BMI 50.0- 59.9, adult Z68.43 [facility] [place] [id number] [place] [address] 20242- 6396 Sep, [facility] [id number] [place] [address] 30625- 1039 Sep, Bipolar I disorder, most recent episode (or current) mixed, moderate F31.62 [facility] [id number] [place] [address] 24410- 3156 Aug, Chronic pain G89.29 [facility] [id number] [place] [address] 28524- 1272 Aug, Generalized edema R60.1 [facility] [id number] [place] [address] 66992- 7303 Aug, [facility] [id number] [place] [address] 91354- 2001 Aug, [facility] [id number] [place] [address] 739631- 9177 Aug, Bipolar I disorder, most recent episode (or current) mixed, moderate F31.62 [facility], [place] [id number] [place] [address] 50469- 9942 Aug, Bipolar I disorder, most recent episode (or current) mixed, moderate F31.62 [facility] [id number] [place] [address] 59603- 7733 Aug, Chronic pain G89.29 [facility] [id number] [place] [address] 14159- 2941 Jul, Bipolar I disorder, most recent episode (or current) mixed, moderate F31.62 [facility] [id number] [place] [address] 42764- 7229 Jul, Bipolar I disorder, most recent episode (or current) mixed, moderate F31.62 and BMI 60.0-69.9, adult Z68.44 [facility] [id number] [place] [address] 36498- 0638 Jul, Bipolar I disorder, most recent episode (or current) mixed, moderate F31.62 [facility] [id number] [place] [address] 82121- 2754 Jul, Chronic pain G89.29 [facility] [id number] [place] [address] 06286- 2039 Jul, Bipolar I disorder, most recent episode (or current) mixed, moderate F31.62 [facility] [id number] [place] [address] 83705- 8298 Jun, Polyneuropathy associated with underlying disease G63 and Diabetes E11.9 [facility] [id number] [place] [address] 66109- 4096 Jun, Bipolar I disorder, most recent episode (or current) mixed, moderate F31.62 [facility], [place] [id number] [place] [address] 30641- 0159 09 Jun, 2017 Chronic pain G89.29 [facility], [place] [id number] [place] [address] 155204- 1474 27 May, 2017 Bipolar I disorder, most recent episode (or current) mixed, moderate F31.62 [facility], [place] [id number] [place] [address] 67864- 0445 21 May, 2017 Bipolar I disorder, most recent episode (or current) mixed, moderate F31.62 [facility], [place] [id number] [place] [address] 718453- 1617 20 May, 2017 Diabetic polyneuropathy associated with type 2 diabetes mellitus E11.42 [facility], [place] [id number] [place] [address] 11187- 8041 18 May, 2017 Bipolar I disorder, most recent episode (or current) mixed, moderate F31.62 [facility], [place] [id number] [place] [address] 38854- 3497 13 May, 2017 Bipolar I disorder, most recent episode (or current) mixed, moderate F31.62 [facility], [place] [id number] [place] [address] 67886- 9908 May, Chronic pain G89.29 [facility], [place] [id number] [place] [address] 06514- 9687 Apr, Bipolar I disorder, most recent episode (or current) mixed, moderate F31.62 [facility], [place] [id number] [place] [address] 60261- 6602 Apr, [facility], [place] [id number] [place] [address] 67718- 7136 Apr, Chronic pain G89.29 and DM neuro manif type II E11.49 [facility], [place] [id number] [place] [address] 33106- 7340 Apr, [facility], [place] [address], [place] [address]- 3316 Apr, Bipolar I disorder, most recent episode (or current) mixed, moderate F31.62 [facility], [place] [id number] [place] [address] 15522- 2616 Apr, Chronic pain G89.29 [facility], [place] [id number] [place] [address] 45550- 1546 Apr, Iliotibial band syndrome, left M76.32 [facility], [place] [id number] [place] [address] 99294- 9968 Apr, Bipolar I disorder, most recent episode (or current) mixed, moderate F31.62 [facility], [place] [id number] [place] [address] 18674- 0666 Mar, Bipolar I disorder, most recent episode (or current) mixed, moderate F31.62 [facility], [place] [id number] [place] [address] 52265- 5622 Mar, Bipolar I disorder, most recent episode (or current) mixed, moderate F31.62 [facility], [place] [id number] [place] [address] 61930- 7192 Mar, [facility], [place] [id number] [place] [address] 77289- 9127 Mar, Bipolar I disorder, most recent episode (or current) mixed, moderate F31.62 [facility], [place] [id number] [place] [address] 37542- 4404 Mar, Chronic pain G89.29 [facility], [place] [id number] [place] [address] 45046- 6766 Mar, Bipolar I disorder, most recent episode (or current) mixed, moderate F31.62 [facility], [place] [address], [place] [address]- 0995 Mar, Bipolar I disorder, most recent episode (or current) mixed, moderate F31.62 [facility] [id number] [place] [address] 08514- 7086 Mar, Acute pain of left knee M25.562 ; Left hip pain M25.552 ; Generalized edema R60.1 and Tongue swelling R22.0 [facility] [id number] [place] [address] 50919- 4412 Mar, [facility] [id number] [place] [address] 11014- 3785 Feb, Chronic pain G89.29 [facility] [id number] [place] [address] 32087- 3139 Feb, Diabetes E11.9 [place] [id number] [place] [address] 47728- 3505 January, Chronic pain G89.29 [facility] [id number] [place] [address] 76303- 2312 January, [facility] [id number] [place] [address] 32041- 8419 January, Bipolar I disorder, most recent episode (or current) mixed, moderate F31.62 [place] [id number] [place] [address] 05216- 9834 Dec, Bipolar I disorder, most recent episode (or current) mixed, moderate F31.62 [facility] [id number] [place] [address] 05427- 4623 Dec, Chronic pain G89.29 [facility] [id number] [place] [address] 72919- 9904 Dec, Bipolar I disorder, most recent episode (or current) mixed, moderate F31.62 [facility] [id number] [place] [address] 90989- 6111 Dec, Diabetes E11.9 ; Essential hypertension I10 ; Chronic pain G89.29 and Morbid obesity E66.01 [facility] [id number] [place] [address] 03467- 4906 Dec, [facility], [place] [address], [place] [address]- 6686 Dec, Bipolar I disorder, most recent episode (or current) mixed, moderate F31.62 [facility], [place] [address], [place] [address] 2546 Dec, Bipolar I disorder, most recent episode (or current) mixed, moderate F31.62 [facility], [place] [address], [place] [address]- 6736 Nov, Chronic pain G89.29 [facility], [place] [id number] [place] [address] 88379- 9206 Nov, Bipolar I disorder, most recent episode (or current) mixed, moderate F31.62 [facility], [place] [address], [place] [address]- 3826 Nov, [facility], [place] [id number] [place] [address] 09197- 8166 Nov, Bipolar I disorder, most recent episode (or current) mixed, moderate F31.62 [facility], [place] [address], [place] [address]- 1846 Nov, Bipolar I disorder, most recent episode (or current) mixed, moderate F31.62 [facility], [place] [address], [place] [address]- 1566 Nov, [facility], [place] [id number] [address]- 3316 Nov, [facility], [place] [address], [place] [address]- 3526 Nov, [facility], [place] [address], [place] [address]- 4936 Oct, Chronic pain G89.29 [facility], [place] [address], [place] [address]- 0946 Oct, Bipolar I disorder, most recent episode (or current) mixed, moderate F31.62 [facility] [place] [id number] [place] [address] 95298- 9636 Oct, [facility] [place] [id number] [place] [address] 83489 2546 15 Oct, 2016 Chronic pain G89.29 ; Diabetes E11.9 ; Anxiety F41.9 and 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 [facility], [place] [id number] [place] [address] 75103- 3866 Oct, [facility] [place] [id number] [place] [address] 45724- 5526 Oct, Diabetes E11.9 [facility] [place] [id number] [place] [address] 29428 2549 Oct, Bipolar I disorder, most recent episode (or current) mixed, moderate F31.62 [facility], [place] [id number] [place] [address] 84100- 3900 Sep, Chronic pain G89.29 [facility], [place] [id number] [place] [address] 73237- 6646 Sep, Chronic pain G89.29 [facility], [place] [id number] [place] [address] 65676- 2406 Aug, Chronic pain G89.29 [facility], [place] [id number] [place] [address] 69546 2546 Jul, [facility] [place] [id number] [place] [address] 96017- 7241 Jul, Diabetes E11.9 [facility] [place] [id number] [place] [address] 82384 2546 Jul, Chronic pain G89.29 [facility] [place] [id number] [place] [address] 82273 2546 Jul, Bipolar I disorder, most recent episode (or current) mixed, moderate F31.62 [facility] [place] [id number] [place] [address] 34982- 9940 Jun, Bipolar I disorder, most recent episode (or current) mixed, moderate F31.62 [facility] [place] [id number] [place] [address] 67886- 1869 Jun, [facility] [place] [id number] [place] [address] 30778- 7204 Jun, Bipolar I disorder, most recent episode (or current) mixed, moderate F31.62 [facility] [place] [id number] [place] [address] 46584- 5946 30 May, 2016 Insomnia, unspecified type G47.00 [facility], [place] [id number] [place] [address] 44893- 8772 May, Bipolar I disorder, most recent episode (or current) mixed, moderate F31.62 [facility] [id number] [place] [address] 64858- 2640 14 May, 2016 [facility] [place] [id number] [place] [address] 92313- 2489 May, Bipolar I disorder, most recent episode (or current) mixed, moderate F31.62 [facility] [place] [id number] [place] [address] 22778- 3763 May, Diabetes E11.9 and Essential hypertension I10 [facility] [place] [id number] [place] [address] 63657- 9099 Apr, Chronic pain G89.29 [facility] [place] [id number] [place] [address] 72628- 7325 Apr, Bipolar I disorder, most recent episode (or current) mixed, moderate F31.62 [facility] [place] [id number] [place] [address] 53133- 2738 Apr, [facility] [place] [id number] [place] [address] 57432- 3743 Apr, [facility], [place] [id number] [place] [address] 05208- 4011 Mar, Chronic pain G89.29 ; Headache, unspecified headache type R51 ; Neuropathy G62.9 ; Pain of right hip joint M25.551 and Essential hypertension I10 [facility] [id number] [place] [address] 58169- 3457 Mar, Chronic pain G89.29 [facility] [id number] [place] [address] 01536- 9035 Mar, Bipolar I disorder, most recent episode (or current) mixed, moderate F31.62 [facility] [id number] [place] [address] 25321- 4424 Feb, Bipolar I disorder, most recent episode (or current) mixed, moderate F31.62 and Insomnia, unspecified type G47.00 [facility] [id number] [place] [address] 96359- 4101 Feb, Chronic pain G89.29 [facility] [id number] [place] [address] 96537- 5609 Feb, Bipolar I disorder, most recent episode (or current) mixed, moderate F31.62 [facility] [place] [id number] [place] [address] 65257- 4836 January, Bipolar I disorder, most recent episode (or current) mixed, moderate F31.62 [facility] [id number] [place] [address] 84360- 3474 January, Chronic pain G89.29 [facility] [id number] [place] [address] 29421- 1238 January, Chronic pain G89.29 and Essential hypertension I10 [facility] [id number] [place] [address] 19266- 8886 January, Bipolar I disorder, most recent episode (or current) mixed, moderate F31.62 [facility] [address] [address]- 9343 Dec, [facility], [place] [id number] [place] [address] 09705- 1504 Dec, [facility], [place] [id number] [place] [address] 21819- 8633 Dec, [facility], [place] [id number] [place] [address] 48186- 6157 Dec, [facility], [place] [id number] [place] [address] 38301- 1606 Nov, Reactive airway disease J45.909 [facility], [place] [id number] [place] [address] 37801- 4553 Nov, [facility], [place] [id number] [place] [address] 49132- 7026 Nov, [facility], [place] [id number] [place] [address] 43656- 5325 Nov, [facility], [place] [id number] [place] [address] 47980- 6172 Nov, [facility], [place] [id number] [place] [address] 36921- 4706 Nov, Onychomycosis B35.1 ; [place] M20.40 ; [place] or callus L84 and DM neuro manif type II E11.49 [facility], [place] [id number] [place] [address] 00311- 5083 Nov, Chronic pain G89.29 ; Leukocytosis D72.829 and Diabetes E11.9 [facility], [place] [id number] [place] [address] 03640- 6508 Nov, [facility], [place] [id number] [place] [address] 12135- 4776 Oct, Bronchitis J40 [facility], [place] [id number] [place] [address] 88618- 2247 Oct, [facility], [place] [id number] [place] [address] 38894- 5050 Oct, [facility], [place] [address] [address] Oct, Mastoiditis, unspecified laterality H70.90 and Type 2 diabetes mellitus with complication E11.8 [place] [address] [address]797- 8118 Sep, [facility], [place] [id number] [place] [address] 96451- 9816 Sep, Dysuria R30.0 ; Cough R05 ; Benign prostatic hyperplasia with lower urinary tract symptoms, unspecified morphology N40.1 ; Hypokalemia E87.6 and Eustachian tube dysfunction, unspecified laterality H69.80 [place] [id number] [place] [address] 07677- 4648 Sep, Moderate mixed bipolar I disorder F31.62 [place] [id number] [place] [address] 80695- 9336 Sep, Hypokalemia E87.6 [place] [id number] [place] [address] 80128- 0761 Sep, [place] [id number] [place] [address] 93404- 2197 Sep, Upper respiratory tract infection, unspecified type J06.9 [place] [id number] [place] [address] 04217- 1819 Aug, [place] [id number] [place] [address] 32927- 8872 Aug, Dysuria R30.0 [facility], [place] [id number] [place] [address] 72672- 6868 Aug, [facility], [place] [id number] [place] [address] 93015- 4585 Jul, [facility], [place] [address], [place] [address] 8308 Jul, [facility], [place] [address], [place] [address] 9840 Jul, [facility], [place] [address], [place] [address] 5611 Jul, [facility], [place] [id number] [place] [address] 05199- 6534 Jun, [facility], [place] [address], [place] [address] 2089 Jun, [facility], [place] [id number] [place] [address] 23085- 8061 Jun, [facility], [place] [id number] [place] [address] 74986- 2771 May, [facility], [place] [id number] [place] [address] 55186- 6876 May, Bipolar I disorder, most recent episode (or current) mixed, moderate 296.62 [facility], [place] [address], [place] [address] 1937 May, [facility], [place] [address], [place] [address]- 2178 May, Bipolar I disorder, most recent episode (or current) mixed, moderate 296.62 and Major depressive disorder, recurrent episode, severe, specified as with psychotic behavior 296.34 [facility], [place] [address], [place] [address]- 7595 May, Bipolar I disorder, most recent episode (or current) mixed, moderate 296.62 [facility], [place] [address], [place] [address]- 6252 May, [facility], [place] [address], [place] [address]- 2359 Apr, [facility], [place] [id number] [place] [address] 57804- 3121 Apr, [facility], [place] [address], [place] [address]- 8274 Apr, Unspecified disorder of kidney and ureter 593.9 and Diabetes mellitus type 2, uncontrolled 250.02 [facility], [place] [address], [place] [address]- 1739 Apr, [facility], [place] [id number] [place] [address] 82868- 5750 Apr, [facility], [place] [id number] [place] [address] 21075- 3363 Apr, [facility], [place] [id number] [place] [address] 33867- 0997 Apr, [facility], [place] [id number] [place] [address] 11587- 6230 Apr, Diabetes mellitus type II, uncontrolled 250.02 [facility], [place] [id number] [place] [address] 75204- 2822 Apr, [facility], [place] [id number] [place] [address] 78607- 4135 Mar, [facility], [place] [address], [place] [address]- 6418 Mar, [facility], [place] [address], [place] [address]- 0552 Mar, [facility], [place] [id number] [place] [address] 56898- 7140 Mar, Major depressive disorder, recurrent episode, severe, specified as with psychotic behavior 296.34 and Bipolar I disorder, most recent episode (or current) mixed, moderate 296.62 [facility], [place] [id number] [place] [address] 94461- 7987 Mar, Diabetes 250.00 ; Anuria 788.5 ; Nausea and vomiting 787.01 and Diarrhea 787.91 [facility], [place] [id number], [place] [address]- 6353 Mar, Diabetes 250.00 [facility], [place] [id number] [place] [address] 00050- 9514 Mar, [facility], [place] [id number] [place] [address] 93918- 7938 Mar, Diabetes 250.00 [facility], [place] [id number] [place] [address] 46931- 9565 Mar, [facility], [place] [id number] [place] [address] 59676- 4617 Mar, [facility], [place] [id number] [place] [address] 80501- 0878 Mar, [facility], [place] [id number] [place] [address] 84310- 6151 Mar, [facility], [place] [id number] [place] [address] 87351- 7543 Mar, Bipolar I disorder, most recent episode (or current) mixed, moderate 296.62 and Major depressive disorder, recurrent episode, severe, specified as with psychotic behavior 296.34 [facility], [place] [id number] [place] [address] 42973- 3055 Mar, Magnesium deficiency 275.2 ; Hypokalemia 276.8 ; Nausea & vomiting 787.01 and Diabetes mellitus type 2, uncontrolled 250.02 [facility], [place] [address], [place] [address]- 8217 Feb, [facility], [place] [id number] [place] [address] 46976- 5933 Feb, Bipolar I disorder, most recent episode (or current) mixed, moderate 296.62 [facility], [place] [id number] [place] [address] 28130- 5736 Feb, Nausea and vomiting 787.01 ; Left elbow pain 719.42 ; Anuria 788.5 and Diabetes 250.00 [facility], [place] [id number], [place] [address]- 0113 Feb, [facility], [place] [address], [place] [address]- 6889 Feb, Hypopotassemia 276.8 and Hypokalemia 276.8 [facility], [place] [address], [place] [address]- 9072 Feb, Hypopotassemia 276.8 and Hypokalemia 276.8 [facility], [place] [id number] [place] [address] 02299- 9949 Feb, Seborrheic keratoses 702.19 [facility], [place] [id number] [place] [address] 24726- 9360 Feb, Hypopotassemia 276.8 and Low magnesium levels 275.2 [facility], [place] [id number] [place] [address] 58154- 6136 January, [facility], [place] [id number] [place] [address] 41415- 1870 January, [facility], [place] [id number] [place] [address] 39168- 7411 January, [facility], [place] [id number] [place] [address] 18243- 3731 January, Scalp lesion 709.9 [facility], [place] [address], [place] [address]- 1385 January, [facility], [place] [address], [place] [address]- 1712 Dec, Tear of medial cartilage or meniscus of knee, current 836.0 and 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 [facility], [place] [address], [place] [address]- 3502 Dec, [facility], [place] [address], [place] [address]- 4437 Dec, [facility], [place] [id number] [place] [address], [place] [address]- 6307 28 Dec, 2014 Squamous cell carcinoma, 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 [facility] [place] [facility] [address] [id number] [place] [address]- 0028 14 Dec, 2014 [facility] [place] [facility] [address] [id number] [place] [address]- 6596 13 Dec, 2014 [facility] [place] [facility] [address] [id number] [place] [address]- 6227 27 Nov, 2014 [facility] [place] [facility] [address] [id number] [place] [address]- 3491 Nov, [facility] [place] [facility] [address] [id number] [place] 0065 Nov, [facility] [place] [facility] [address] [facility] [id number] [place] 0836 Nov, [facility] [place] [facility] [address] [address] [id number] [place] [address]- 2321 Nov, [facility] [place] [facility] [address] [facility] [id number] [place] 3104 Nov, [facility] [place] [facility] [address] [facility] [id number] [place] [address]- 4257 Nov, [facility] [place] [facility] [address] [facility] [id number] [place] 7621 Nov, [facility] [place] [facility] [address] [facility] [id number] [place] [address]- 8231 Nov, [facility] [place] [facility] [address] [id number] [place] [address]- 0969 Nov, [facility] [place] [facility] [address] [facility] [id number] [place] [address]- 6594 Nov, [facility] [place] [facility] [address] [facility] [id number] [place] [address]- 2206 Nov, [facility] [place] [facility] [address] [facility] [id number] [place] [address]- 1139 Oct, 2014 [facility] [place] [facility] [address] [facility] [id number] [place] [address]- 9161 Oct, 2014 [facility] [place] [facility] [address] [facility] [id number] [place] [address]- 0500 Oct, 2014 [facility] [place] [facility] [address] [facility] [id number] [place] [address]- 2973 Oct, 2014 [facility] [place] [facility] [address] [facility] [id number] [place] [address]- 9803 Oct, 2014 [facility] [place] [facility] [address] [facility] [id number] [place] [address]- 5870 Oct, 2014 [facility] [place] [facility] [address] [facility] [id number] [place] [address]- 2262 Oct, 2014 [facility] [place] [facility] [address] [id number] [address]- 5320 Oct, 2014 [facility] [place] [facility] [address] [facility] [id number] [place] [address]- 6439 Oct, [facility] [place] [facility] [address] [facility] [id number] [place] [address]- 3871 Sep, [facility] [place] [facility] [address] [facility] [id number] [place] [address]- 6166 Sep, [facility] [place] [facility] [address] [facility] [id number] [place] [address]- 9351 Sep, [facility] [place] [facility] [address] [facility] [id number], [place] [address]- 0209 Sep, [facility] [place] [facility] [address] [facility] [id number], [place] [address]- 3583 Sep, [facility] [place] [facility] [address] [facility] [id number], [place] [address]- 6639 Sep, [facility] [place] [facility] [id number], [place] [address]- 5782 Sep, [facility] [place] [facility] [address] [id number] [place] [address]- 1299 Sep, [facility] [place] [facility] [address] [id number] [place] [address]- 6712 Sep, [facility] [place] [facility] [address] [id number] [place] [address]- 5729 Sep, [facility] [place] [facility] [address] [id number] [place] [address]- 5433 Sep, [facility] [place] [facility] [address] [id number] [place] [address]- 3048 Sep, [facility] [place] [facility] [address] [id number] [place] [address]- 8474 Sep, [facility] [place] [facility] [address] [id number] [place] [address]- 6329 Sep, [facility] [place] [facility] [address] [id number] [place] [address]- 7759 Sep, [facility] [place] [facility] [address] [id number] [place] [address]- 2382 Sep, [facility] [place] [facility] [address] [id number] [place] [address]- 8960 Aug, [facility] [place] [facility] [address] [id number] [place] [address]- 0329 Aug, [facility] [place] [facility] [address] [id number] [place] [address]- 2270 Aug, [facility] [place] [facility] [address] [id number] [place] [address]- 4952 Aug, [facility] [place] [facility] [address] [id number] [place] [address]- 8143 Aug, [facility] [place] [facility] [address] [id number] [place] [address]- 2998 31 Aug, 2014 [facility] [place] [facility] [address] [id number] [place] [address]- 0846 Aug, [facility] [address] [id number] [place] [address]- 7620 Aug, [facility] [address] [id number] [place] [address]- 2499 Aug, [facility] [address] [id number] [place] [address]- 1549 Aug, [facility] [address] [id number] [place] [address]- 4530 Aug, [facility] [address] [place] [id number] Aug, [facility] [address] [id number] [place] [address]- 2349 Aug, [facility] [address] [id number] [place] [address]- 4692 Aug, [facility] [address] [id number] [place] [address]- 3770 Aug, [facility] [address] [id number] [place] [address]- 7946 Aug, [facility] [address] [id number] [place] [address]- 3506 Aug, [facility] [address] [id number] [place] [address]- 3150 Aug, [facility] [address] [id number] [place] [address]- 0026 Aug, [facility] [address] [id number] [place] [address]- 8737 Aug, [facility] [address] [id number] [place] [address]- 5738 Aug, [facility] [address] [id number] [place] 8278 Aug, [facility] [address] [id number] [place] [address]- 6519 Aug, [facility] [place] [facility] [address] [id number] [place] [address]- 3779 Aug, [facility] [place] [facility] [address] [id number] [place] 8542 Aug, [facility] [place] [facility] [address] [id number] [place] [address]- 3547 Aug, [facility] [place] [facility] [address] [id number] [place] [address]- 6753 Aug, [facility] [place] [facility] [address] [id number] [place] [address]- 7062 Aug, [facility] [place] [facility] [address] [id number] [place] [address]- 9874 Aug, [facility] [place] [facility] [address] [id number] [place] [address]- 4811 Aug, [facility] [place] [facility] [address] [id number] [place] [address]- 2160 Jul, [facility] [place] [facility] [address] [id number] [place] [address]- 7846 Jul, [facility] [place] [facility] [address] [id number] [place] [address]- 5422 Jul, [facility] [place] [facility] [address] [id number] [place] [address]- 6068 Jul, [facility] [place] [facility] [address] [id number], [place] [address]- 8389 Jul, [facility] [place] [facility] [address] [id number] [place] [address]- 9378 Jul, [facility] [place] [facility] [address] [id number] [place] [address]- 5967 Jul, [facility] [place] [facility] [address] [id number] [place] [address]- 8856 Jul, [facility] [place] [facility] [address] [id number] [place] [address]- 4394 Jul, [facility] [place] [facility] [address] [id number] [place] [address]- 6956 Jul, [facility] [place] [facility] [address] [id number] [place] [address]- 8603 Jun, [facility] [place] [facility] [address] [id number] [place] [address]- 7754 Jun, [facility] [place] [facility] [address] [id number] [place] [address]- 1331 Jun, [facility] [place] [facility] [address] [id number] [place] [address]- 1702 Jun, [facility] [place] [facility] [address] [id number] [place] [address]- 6906 Jun, [facility] [place] [facility] [address] [id number] [place] [address]- 5998 Jun, [facility] [place] [facility] [address] [id number] [place] [address]- 2511 Jun, [facility] [place] [facility] [address] [id number] [place] [address]- 9998 Jun, [facility] [place] [facility] [address] [id number] [place] [address]- 6441 Jun, [facility] [place] [facility] [address] [id number] [place] [address]- 5448 Jun, [facility] [place] [facility] [address] [id number] [place] [address]- 1193 29 May, 2014 [facility] [place] [facility] [address] [id number] [place] [address]- 3544 29 May, 2014 [facility] [place] [facility] [address] [id number] [place] [address]- 6000 May, [facility] [place] [facility] [address] [id number] [place] [address]- 4296 May, [facility] [place] [facility] [address] [id number] [place] [address]- 6018 17 May, 2013 [facility] [place] [facility] [address] [id number] [place] [address]- 6286 17 May, 2013 [facility] [place] [facility] [address] [id number] [place] [address]- 6299 15 May, 2013 [facility] [place] [facility] [address] [id number] [place] [address]- 0603 15 May, 2013 [facility] [place] [facility] [address] [id number] [place] [address]- 3453 15 May, 2013 [facility] [place] [facility] [address] [id number] [place] [address]- 3069 15 May, 2013 [facility] [place] [facility] [address] [id number] [place] [address]- 3399 10 May, 2013 [facility] [place] [facility] [address] [id number] [place] [address]- 2685 10 May, 2013 [facility] [place] [facility] [address] [id number] [place] [address]- 5973 09 May, 2013 [facility] [place] [facility] [address] [id number] [place] [address]- 4291 09 May, 2013 [facility] [place] [facility] [address] [id number] [place] [address]- 4187 May, 2013 [facility] [place] [facility] [address] [id number] [place] [address]- 3177 May, 2013 [facility] [place] [facility] [address] [id number] [place] [address]- 2758 Apr, [facility] [place] [facility] [address] [id number] [place] [address]- 5082 Apr, [facility] [place] [facility] [address] [id number] [place] [address]- 8297 Apr, [facility] [place] [facility] [address] [id number] [place] [address]- 9451 Apr, [facility] [place] [facility] [address] [id number] [facility] [place] [address]- 0921 Apr, [facility] [place] [facility] [address] [id number] [place] [address]- 8757 Apr, [facility] [place] [facility] [address] [id number] [place] [address]- 9141 Apr, [facility] [place] [facility] [address] [id number] [place] [address]- 4159 Apr, [facility] [place] [facility] [address] [id number] [place] [address]- 7294 Apr, [facility] [place] [facility] [address] [id number] [place] [address]- 8245 Apr, [facility] [place] [facility] [address] [id number] [place] [address]- 6991 Apr, [facility] [place] [facility] [address] [id number] [place] [address]- 4194 Apr, [facility] [place] [facility] [address] [id number] [place] [address]- 5142 Apr, [facility] [place] [facility] [address] [id number] [place] [address]- 1898 Apr, [facility] [place] [facility] [address] [id number] [place] [address] Apr, [facility] [place] [facility] [address] [id number] [place] [address] Mar, [facility] [place] [facility] [address] [id number] [place] [address] 2008 Mar, [facility] [place] [facility] [address] [id number] [place] [address] Mar, [facility] [place] [facility] [address] [id number] [place] [address] Mar, [facility] [place] [facility] [address] [id number] [place] [address] Mar, 2013 [facility] [place] [facility] [address] [id number] [place] [address] Mar, 2013 [facility] [place] [facility] [address] [id number] [place] [address] Mar, 2013 [facility] [place] [facility] [address] [id number] [place] [address] Mar, 2013 [facility] [place] [facility] [address] [id number] [place] [address] Mar, 2013 [facility] [place] [facility] [address] [id number] [place] [address] Mar, 2013 [facility] [place] [facility] [address] [id number] [place] [address] Mar, 2013 [facility] [place] [facility] [address] [id number] [place] [address] Mar, 2013 [facility] [place] [facility] [address] [id number] [place] [address] Mar, 2013 [facility] [place] [facility] [address] [id number] [place] [address]- [address] Mar, 2013 [facility] [place] [facility] [address] [id number] [place] [address] Mar, 2013 [facility] [place] [facility] [address] [id number] [place] [address]- [address] Mar, 2013 [facility] [place] [facility] [address] [id number] [place] [address] Mar, [facility] [place] [facility] [address] [id number] [place] [address] Mar, 2013 [facility] [place] [facility] [address] [id number] [place] [address]99 Feb, [facility] [place] [facility] [address] [id number] [place] [address] Feb, [facility] [place] [facility] [address] [id number] [place] [address] Feb, [facility] [place] [facility] [address] [id number] [place] [address] Feb, [facility] [place] [facility] [address] [id number] [place] [address] Feb, [facility] [place] [facility] [address] [id number] [place] [address] Feb, [facility] [place] [facility] [address] [id number] [place] [address] Feb, [facility] [place] [facility] [address] [id number] [place] [address] Feb, [facility] [place] [facility] [address] [id number] [place] [address]- [address] Feb, [facility] [place] [facility] [address] [id number] [place] [address] Feb, [facility] [place] [facility] [address] [id number] [place] [address] Feb, [facility] [place] [facility] [address] [id number] [place] [address] Feb, [facility] [place] [facility] [address] [id number] [place] [address] Feb, [facility] [place] [facility] [address] [id number] [place] [address] Feb, [facility] [place] [facility] [address] [id number] [place] [address] January, [facility] [place] [facility] [address] [id number] [place] [address] January, [facility] [place] [facility] [address] [id number] [place] [address] January, [facility] [place] [facility] [address] [id number] [place] [address] January, [facility] [address] [id number] [place] [address] January, [facility] [address] [id number] [place] [address] January, [facility] [address] [id number] [place] [address] January, [facility] [address] [id number] [place] [address]- [address] January, [facility] [address] [id number] [place] [address] January, [facility] [address] [id number] [place] [address]- [address] January, [facility] [address] [id number] [place] [address] January, [facility] [address] [id number] [place] [address] January, [facility] [address] [id number] [place] [address] January, [facility] [address] [id number] [place] [address] January, [facility] [address] [id number] [place] [address]- [address] Dec, [facility] [place] [facility] [address] [id number] [place] [address] Dec, [facility] [place] [facility] [address] [id number] [place] [address] Dec, [facility] [place] [facility] [address] [id number] [place] [address]- [address] Dec, [facility] [place] [facility] [address] [id number] [place] [place] [address] Dec, [facility] [place] [facility] [address] [id number] [place] [address] 9588 Dec, [facility] [place] [facility] [address] [id number] [place] [address] 2507 Dec, [facility] [place] [facility] [address] [id number] [place] [address] 8344 Dec, [facility] [place] [facility] [address] [id number] [place] [address]- 5555 Dec, [facility] [place] [facility] [address] [id number] [place] [address]- 9716 Dec, [facility] [place] [facility] [address] [id number] [place] [address]- 0958 Nov, [facility] [place] [facility] [address] [id number] [place] [address]- 9636 Nov, [facility] [place] [facility] [address] [id number] [place] [address]- 1366 Nov, [facility] [place] [facility] [address] [id number] [place] [address]- 4710 Nov, [facility] [place] [facility] [address] [id number] [place] [address]- 3151 Nov, [facility] [place] [facility] [address] [id number] [place] [address]- 3786 Nov, [facility] [place] [facility] [address] [id number] [place] [address]- 1542 Nov, [facility] [place] [facility] [address] [id number] [place] [address]- 3965 Nov, [facility] [place] [facility] [address] [id number] [place] [address]- 3541 Nov, [facility] [place] [facility] [address] [id number] [place] [address]- 6806 Nov, [facility] [place] [facility] [address] [id number] [place] [address]- 6074 Oct, [facility] [place] [facility] [address] [id number] [place] [address]- 9686 Oct, [facility] [place] [facility] [address] [id number] [place] [address]- 5066 Oct, [facility] [place] [facility] [address] [id number] [place] [address]- 7506 Oct, [facility] [place] [facility] [address] [id number] [place] [address]- 2889 Oct, [facility] [place] [facility] [address] [id number] [place] [address]- 9783 Oct, [facility] [place] [facility] [address] [id number] [place] [address]- 2956 Oct, [facility] [place] [facility] [address] [id number] [place] [address]- 4688 Oct, [facility] [place] [facility] [address] [id number] [place] [address]- 9710 Oct, [facility] [place] [facility] [address] [id number] [place] [address]- 3617 Oct, [facility] [place] [facility] [address] [id number] [place] [address]- 3953 Oct, [facility] [place] [facility] [address] [id number] [place] [address]- 2542 Oct, [facility] [place] [facility] [address] [id number] [place] [address]- 2547 Oct, [facility] [place] [facility] [address] [id number] [place] [address]- 2276 Oct, [facility] [place] [facility] [address] [id number] [place] [address]- 9796 Sep, [facility] [place] [facility] [address] [id number] [place] [address]- 7800 Sep, [facility] [place] [facility] [address] [id number] [place] [address]- 7316 15 Sep, 2013 [facility] [place] [facility] [address] [id number] [place] [address]- 0945 15 Sep, 2013 [facility] [place] [facility] [address] [id number] [place] [address]- 1264 Sep, [facility] [place] [facility] [address] [id number] [place] [address]- 6491 Sep, [facility] [place] [facility] [address] [id number] [place] [address]- 1984 Sep, [facility] [place] [facility] [address] [id number] [place] [address]- 3949 Sep, [facility] [place] [facility] [address] [id number] [place] [address]- 6621 Sep, [facility] [place] [facility] [address] [id number] [place] [address]- 5917 08 Sep, 2013 [facility] [place] [facility] [address] [id number] [place] [address]- 6706 Aug, [facility] [place] [facility] [address] [id number] [place] [address]- 7523 Aug, [facility] [place] [facility] [address] [id number], [place] [address] 8[address] Jul, [facility] [place] [facility] [address] [id number], [place] [address]- 1645 Jul, [facility] [place] [facility] [address] [id number] [place] [address]- 7299 Jul, [facility] [place] [facility] [address] [id number] [place] [address]- 7204 Jul, [facility] [place] [facility] [address] [id number] [place] [address]- 0828 Jul, [facility] [place] [facility] [address] [id number] [place] [address]- 1475 13 Jul, 2013 [facility] [place] [facility] [address] [id number] [place] [address]- 7139 Jul, [facility] [place] [facility] [address] [id number] [place] [address]- 2816 Jul, [facility] [place] [facility] [address] [id number] [place] [address]- 3063 08 Jul, 2013 [facility] [place] [facility] [address] [id number] [place] [address]- 6550 08 Jul, 2013 [facility] [place] [facility] [address] [id number] [place] [address]- 9125 Jul, [facility] [place] [facility] [address] [id number] [place] [address]- 2300 Jul, [facility] [place] [facility] [address] [id number] [place] [address]- 5817 Jul, [facility] [place] [facility] [address] [id number] [place] [address]- 1572 Jul, [facility] [place] [facility] [address] [id number] [place] [address]- 1258 Jul, [facility] [place] [facility] [address] [facility] [id number] [place] [address]- 1746 Jul, [facility] [place] [facility] [address] [id number] [place] [address]- 7580 Jul, [facility] [place] [facility] [address] [id number], [place] [address]- 0469 Jul, [facility] [place] [facility] [address] [id number] [place] [address]- 7991 Jul, [facility] [place] [facility] [address] [id number] [place] [address]- 9825 Jun, [facility] [place] [facility] [address] [id number], [place] [address]- 9[address] Jun, [facility] [place] [facility] [address] [id number] [place] [address]- 5830 16 Jun, 2012 [facility] [place] [facility] [address] [id number] [place] [address]- 9119 16 Jun, 2012 [facility] [place] [facility] [address] [id number] [place] [address]- 7023 16 Jun, 2012 [facility] [place] [facility] [address] [id number] [place] [address]- 3713 16 Jun, 2012 [facility] [address] [id number] [place] [address]- 0514 10 Jun, 2012 [facility] [place] [facility] [address] [id number] [place] [address]- 7571 Jun, [facility] [address] [id number] [place] [address]- 0506 Jun, [facility] [place] [facility] [address] [id number] [place] [address]- 0559 Jun, [facility] [place] [facility] [address] [id number] [place] [address]- 9236 Jun, [facility] [place] [facility] [address] [id number] [place] [address]- 8341 26 May, 2012 [facility] [place] [facility] [address] [id number] [place] [address]- 4161 25 Sep, 2012 [facility] [place] [facility] [address] [id number], [place] [address]- 5765 19 Sep, 2012 [facility] [place] [facility] [address] [id number] [place] [address]- 1376 17 Sep, 2012 [facility] [place] [facility] [address] [id number] [place] [address]- 9919 11 Sep, 2012 [facility] [place] [facility] [address] [id number] [place] [address]- 0770 10 Sep, 2012 [facility] [place] [facility] [address] [id number] [place] [address]- 2546 May, [facility] [place] [facility] [address] [id number] [place] May, [facility] [place] [facility] [address] [id number] [place] [address]- 5414 Apr, [facility] [place] [facility] [address] [id number] [place] [address]- 6311 Apr, [facility] [place] [facility] [address] [id number] [place] [address]- 3568 Apr, [facility] [place] [facility] [address] [id number] [place] [address]- 6201 Apr, [facility] [place] [facility] [address] [id number] [place] [address]- 7364 Apr, [facility] [place] [facility] [address] [id number] [place] [address]- 2150 Mar, [facility] [place] [facility] [address] [id number] [place] [address]- 3742 Mar, [facility] [place] [facility] [address] [id number] [place] [address]- 8662 Mar, [facility] [place] [facility] [address] [id number] [place] [address]- 2238 Mar, [facility] [place] [facility] [address] [id number] [place] [address]- 3022 Mar, [facility] [place] [facility] [address] [id number] [place] [address]- 7517 Mar, [facility] [place] [facility] [address] [id number] [place] [address]- 5688 Mar, [facility] [place] [facility] [address] [id number] [place] [address]- 0097 Mar, [facility] [place] [facility] [address] [id number] [place] [address]- 0107 Feb, [facility] [place] [facility] [address] [id number] [place] [address]- 4628 10 Feb, 2013 [facility] [address] [id number] [place] [address]- 8291 January, [facility] [address] [id number] [place] [address]- 0593 January, [facility] [address] [id number] [place] [address]- 2142 Dec, [facility] [address] [id number] [place] [address]- 6054 Dec, [facility] [address] [id number] [place] [address]- 9085 Nov, [facility] [address] [id number] [place] [address]- 2547 Nov, [facility] [address] [id number] [place] [address]- 7876 Nov, [facility] [address] [id number] [place] [address]- 0371 Nov, [facility] [address] [id number] [place] [address]- 4122 Oct, [facility] [address] [id number] [place] [address]- 0765 Oct, [facility] [address] [id number] [place] [address]- 4378 Oct, [facility] [address] [id number] [place] [address]- 6112 Oct, [facility] [place] [facility] [address] [id number] [place] [address]- 1346 16 Oct, 2012 [facility] [address] [id number] [place] [address]- 7939 14 Oct, 2012 [facility] [address] [id number] [place] [address]- 0102 08 Oct, 2012 [facility] [address] [id number] [place] [address]- 5937 07 Oct, 2012 [facility] [address] [id number] [place] [address]- 8316 03 Oct, 2012 [facility] [address] [id number] [place] [address]- 4899 30 Sep, 2012 [facility] [address] [id number] [place] [address]- 5153 29 Sep, 2012 [facility] [address] [id number] [place] [address]- 4376 Sep, [facility] [address] [id number] [place] [address]- 1009 Sep, [facility] [address] [id number] [place] [address]- 4958 Sep, [facility] [address] [id number] [place] [address]- 4692 Sep, [facility] [address] [id number] [place] [address]- 6329 Sep, [facility] [address] [id number] [place] [address]- 5475 Sep, [facility] [address] [id number] [place] [address]- 7142 Aug, [facility] [place] [facility] [address] [id number] [place] [address]- 5995 Aug, [facility] [place] [facility] [address] [id number] [place] [address]- 2453 Aug, [facility] [place] [facility] [address] [id number] [place] [address]- 7662 Aug, [facility] [place] [facility] [address] [id number] [place] [address]- 0462 Aug, [facility] [place] [facility] [address] [id number] [place] [address]- 4323 Aug, [facility] [place] [facility] [address] [id number] [place] [address]- 1480 Aug, [facility] [place] [facility] [address] [id number] [place] [address]- 4120 Aug, [facility] [place] [facility] [address] [id number] [place] [address]- 2590 Jul, [facility] [place] [facility] [address] [id number] [place] [address]- 0600 Jul, [facility] [place] [facility] [address] [id number] [place] [address]- 7083 Jul, [facility] [place] [facility] [address] [id number] [place] [address]- 9771 Jul, [facility] [place] [facility] [address] [id number] [place] [address]- 7862 Jul, [facility] [place] [facility] [address] [id number] [place] [address]- 0279 Jul, [facility] [place] [facility] [address] [id number] [place] [address]- 6707 Jun, [facility] [place] [facility] [address] [id number] [place] [address]- 9694 Jun, [facility] [place] [facility] [address] [id number] [place] [address]- 9148 Jun, [facility] [place] [facility] [address] [id number], [place] [address]- 2155 Jun, [facility] [place] [facility] [address] [id number] [place] [address]- 3738 Jun, [facility] [place] [facility] [address] [id number] [place] [address]- 8367 Jun, [facility] [place] [facility] [address] [id number] [place] [address]- 2582 Jun, [facility] [place] [facility] [address] [id number] [place] [address]- 5434 Jun, [facility] [place] [facility] [address] [id number] [place] [address]- 8733 Jun, [facility] [place] [facility] [address] [id number] [place] [address]- 4901 May, [facility] [place] [facility] [address] [id number] [place] [address]- 3703 24 May, 2012 [facility] [place] [facility] [address] [id number] [place] [address]- 2552 May, [facility] [place] [facility] [address] [id number] [place] [address]- 8699 Apr, [facility] [place] [facility] [address] [id number] [place] [address]- 0452 Apr, [facility] [place] [facility] [address] [id number] [place] [address]- 0607 Apr, [facility] [place] [facility] [address] [id number] [place] [address]- 9043 Apr, [facility] [place] [facility] [address] [id number] [place] [address]- 2676 Apr, [facility] [place] [facility] [address] [id number] [place] [address]- 6885 Apr, [facility] [place] [facility] [address] [id number] [place] [address]- 8580 Mar, [facility] [place] [facility] [address] [id number] [place] [address]- 0374 Mar, [facility] [place] [facility] [address] [id number] [place] [address]- 1391 Mar, [facility] [place] [facility] [address] [id number] [place] [address]- 6935 Mar, [facility] [place] [facility] [address] [id number] [place] [address]- 8936 Feb, [facility] [address] [id number] [place] [address]- 5556 Feb, [facility] [place] [facility] [address] [id number] [place] [address]- 9073 Feb, [facility] [place] [facility] [address] [id number] [place] [address]- 0231 Feb, [facility] [place] [facility] [address] [id number] [place] [address]- 3899 Feb, [facility] [place] [facility] [address] [id number] [place] [address]- 3198 January, [facility] [place] [facility] [address] [id number] [place] [address]- 2315 January, [facility] [address] [id number] [place] [address]- 5522 January, [facility] [address] [id number] [place] [address]- 1118 January, [facility] [address] [id number] [place] [address]- 1308 January, [facility] [place] [facility] [address] [id number] [place] [address]- 5893 January, [facility] [place] [facility] [address] [id number] [place] [address]- 1086 Dec, [facility] [place] [facility] [address] [id number] [place] [address]- 3556 Dec, [facility] [place] [facility] [address] [id number] [place] [address]- 4266 Dec, [facility] [place] [facility] [address] [id number] [place] [address]- 8381 Dec, [facility] [place] [facility] [address] [id number] [place] [address]- 3924 Dec, [facility] [place] [facility] [address] [id number] [place] [address]- 3481 27 Nov, 2011 [facility] [place] [facility] [address] [id number] [place] [address]- 4776 14 Nov, 2011 [facility] [place] [facility] [address] [id number] [place] [address]- 2955 12 Nov, 2011 [facility] [place] [facility] [address] [id number] [place] [address]- 8930 07 Nov, 2011 [facility] [place] [facility] [address] [id number] [place] [address]- 1372 29 Oct, 2011 [facility] [place] [facility] [address] [id number] [place] [address]- 8619 28 Oct, 2011 [facility] [place] [facility] [address] [id number] [place] [address]- 7252 24 Oct, 2011 [facility] [place] [facility] [address] [id number] [place] [address]- 5668 13 Oct, 2011 [facility] [place] [facility] [address] [id number] [place] [address]- 3207 08 Oct, 2011 [facility] [place] [facility] [address] [id number] [place] [address]- 0862 Sep, [facility] [place] [facility] [address] [id number] [place] [address]- 0022 Sep, [facility] [place] [facility] [address] [id number] [place] [address]- 6303 Sep, [facility] [place] [facility] [address] [id number] [place] [address]- 3976 Sep, [facility] [place] [facility] [address] [id number] [place] [address]- 6383 Sep, [facility] [place] [facility] [address] [id number] [place] [address]392 Sep, [facility] [place] [facility] [address] [id number] [place] [address]- 1000 Aug, [facility] [place] [facility] [address] [id number] [place] [address]- 2097 Aug, [facility] [place] [facility] [address] [id number] [place] [address]- 6139 Aug, [facility] [place] [facility] [address] [id number] [place] [address]- 1676 Jul, [facility] [place] [facility] [address] [id number] [place] [address]- 2038 Jul, [facility] [place] [facility] [address] [id number] [place] [address]- 9774 Jul, [facility] [place] [facility] [address] [id number] [place] [address]- 8433 Jul, [facility] [place] [facility] [address] [id number] [place] [address]- 9005 Jun, [facility] [place] [facility] [address] [id number] [place] [address]- 8394 Jun, [facility] [place] [facility] [address] [id number] [place] [address]- 7052 Jun, [facility] [place] [facility] [address] [id number] [place] [address]- 3758 Jun, [facility] [place] [facility] [address] [id number] [place] [address]- 1917 Jun, [facility] [place] [facility] [address] [id number] [place] [address]- 1078 Jun, [facility] [place] [facility] [address] [id number] [place] [address]- 2589 Mar, [facility] [place] [facility] [address] [id number] [place] 8532 18 Dec, 2010 [facility] [place] [facility] [address] [id number] [place] [address]- 3591 Dec, [facility] [place] [facility] [address] [id number] [place] [address]- 8244 18 Nov, 2010 [facility] [address] [id number] [place] [address]- 1186 16 Nov, 2010 [facility] [address] [id number] [place] [address]- 5406 10 Sep, 2010 [facility] [address] [id number] [place] [address] 31 Aug, 2010 [facility] [address] [id number] [place] [address]46 29 Aug, 2010 [facility] [address] [id number] [place] [address] 29 Aug, 2010 [facility] [address] [id number] [place] [address] 2468 29 Aug, 2010 [facility] [address] [id number] [place] [address] 27 Aug, 2010 [facility] [address] [id number] [place] [address] 14 Aug, 2010 [facility] [address] [id number] [place] [address] 08 Aug, 2010 [facility] [address] [id number] [place] [address] 08 Aug, 2010 [facility] [address] [id number] [place] [address] 2546 07 Aug, 2010 [facility] [address] [id number] [place] [address] 2546 06 Aug, 2010 [facility] [place] [facility] [address] [id number] [place] [address] 2546 Aug, [facility] [place] [facility] [address] [id number] [place] [address] Aug, [facility] [address] [id number] [place] [address] 30 Jul, 2010 [facility] [place] [facility] [address] [id number] [place] [address] 9483 30 Jul, 2010 [facility] [place] [facility] [address] [id number] [place] [address] 8366 30 Jul, 2010 [facility] [place] [facility] [address] [id number] [place] [address] 9752 17 Jul, 2010 [facility] [place] [facility] [address] [id number] [place] [address] 8631 08 Jul, 2010 [facility] [place] [facility] [address] [id number] [place] [address] 1074 Jul, [facility] [place] [facility] [address] [id number] [place] [address] 388[address] 24 Jun, 2010 [facility] [place] [facility] [address] [id number] [place] [address] 287[address] Jun, [facility] [place] [facility] [address] [id number], [place] [address] Jun, [facility] [place] [facility] [address] [id number] [place] [address] 359[address] Jun, [facility] [place] [facility] [address] [id number], [place] [address] 16 Apr, 2010 [facility] [place] [facility] [address] [id number], [place] [address] Mar, [facility] [place] [facility] [address] [id number], [place] [address] Feb, [facility] [place] [facility] [address] [id number] [place] [address] January, [facility] [place] [facility] [address] [id number], [place] [address] 15 Dec, 2009 [facility] [place] [facility] [address] [id number] [place] [address] Nov, [facility] [place] [facility] [address] [id number], [place] [address] 31 Aug, 2009 [facility] [place] [facility] [address] [id number] [place] [address] 7964 Aug, [facility] [place] [facility] [address] [id number][place] [address] [address] Aug, [facility] [place] [facility] [address] [id number], [place] [address] Jul, [facility] [place] [facility] [address] [id number] [place] [address] Jul, [facility] [place] [facility] [address] [id number] [place] [address] Jul, [facility] [place] [facility] [address] [id number] [place] [address] 8067 30 Jun, 2009 [facility] [place] [facility] [address] [id number], [place] [address] Jun, [facility] [place] [facility] [address] [id number], [place] [address] Jun, [facility] [place] [facility] [address] [id number] [place] [address]- 7029 Jun, [facility] [place] [facility] [address] [id number], [place] [address] Jun, [facility] [place] [facility] [address] [id number], [place] [address] Jun, [facility] [place] [facility] [address] [id number], [place] [address] Apr, [facility] [place] [facility] [address] [id number], [place] [address] Apr, [facility] [place] [facility] [address] [id number], [place] [address] Feb, [facility] [place] [facility] [address] [id number][place] [address] January, [facility] [place] [facility] [address] [id number] [place] [address] Dec, IMMUNIZATIONS No Known Immunizations SOCIAL HISTORY Never Assessed REASON FOR VISIT BH f/u, Depression and irritability. PLAN OF CARE Activity Details Follow Up Next available Reason:depression VITAL SIGNS MEDICATIONS Unknown Medications RESULTS No Results PROCEDURES Procedure Date Ordered Result Body Site [facility] VISIT MENTAL HEALTH NEW PT Sep 07, 2017 Psychotherapy, patient &/family, 45 minutes, new patient Sep 07, 2017 INSTRUCTIONS MEDICATIONS ADMINISTERED No Known Medications MEDICAL (GENERAL) HISTORY Type Description Date Medical History type II diabetes Medical History coronary artery disease stress test 01/5015 Medical History chronic obstructive pulmonary disease (COPD) Medical History gastroesophageal reflux disease (GERD) Medical History acute renal failure Medical History erectile dysfunction Medical History hyperlipidemia Medical History obesity Medical History skin cancer-basal cell [facility] (removed) Medical History Arthritis Medical History degenerative [...] 2009 Surgical History colonoscopy 2009 ([place]), 2013 ([place]) Surgical History heart 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 04/2014 Surgical History carotid US 05/2014 Surgical History resection of skin cancer from Right [facility] Surgical History Biopsy of Lung Bilateral/Left lung lymph node 09/2016 Surgical History Bone Marrow Biopsy Surgical History port in the right chest wall 12/2016 Hospitalization History [facility] low potassium, low magnesium, chest painina 01/2015 Hospitalization History inability to urinate 09/16/[address] [facility] early Hospitalization History hyperkalemia 10/2017 Hospitalization History fluid in lung
--- OUTSIDE RECORDS SUMMARY | 2018-08-08 12:40 | XMS REPORT ---
Author Author ALYSE Lazaro Organization [facility] Address Unknown Care Team Providers Care Interpersonal Communications Professor Name Role Phone ALYSE Lazaro Unavailable PROBLEMS Type Condition ICD9-CM Code TPR69-VD Code Onset Dates Condition Status SNOMED Code Problem Chronic lymphocytic leukemia C91.10 Active 78163004 Problem Insomnia, unspecified type G47.00 Active 717238666 Problem Lymphocytosis D72.820 Active 07885678 Problem Anxiety F41.9 Active 29423099 Problem Eye exam abnormal R93.8 Active 210741279 Problem Morbid obesity E66.01 Active 603288881 Problem Diabetic polyneuropathy associated with type 2 diabetes mellitus E11.42 Active 10340004 Problem Essential hypertension I10 Active 28378455 Problem Falling R29.6 Active 109931325 Problem 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 Active 583298731 Problem Cough R05 Active 94393772 Problem Dysuria R30.0 Active 38892724 Problem Eustachian tube dysfunction, unspecified laterality H69.80 Active 84505992 Problem Bilateral primary osteoarthritis of knee M17.0 Active 516920520 Problem Polyneuropathy associated with underlying disease G63 Active 810716197 Problem Anemia of chronic illness D63.8 Active 212640284 Problem Retinal edema H35.81 Active 1565542 Problem DM neuro manif type II E11.49 Active 92999196 Problem Diabetes E11.9 Active 17317551 Problem Hypokalemia E87.6 Active 60852075 Problem Benign prostatic hyperplasia with lower urinary tract symptoms, unspecified morphology N40.1 Active 266493928 Problem Reactive airway disease J45.909 Active 066218656998 Problem Bipolar I disorder, most recent episode (or current) mixed, moderate F31.62 Active 96666542 Problem Chronic pain G89.29 Active 79043932 Problem Leukocytosis D72.829 Active [id number] ALLERGIES No Information ENCOUNTERS Encounter Location Date Diagnosis [facility] [address] [address] Dec, [facility] [id number] [place] [address] 59867- 7137 Dec, [facility] [id number] [place] [address] 89958- 0619 Dec, [facility] [id number] [place] [address] 70024- 7984 Dec, Bipolar I disorder, most recent episode (or current) mixed, moderate F31.62 [facility] [id number] [place] [address] 47560- 0157 Nov, Bipolar I disorder, most recent episode (or current) mixed, moderate F31.62 [facility] [id number] [place] [address] 87281- 2361 Nov, Chronic pain G89.29 [facility] [id number] [place] [address] 79595- 0160 Nov, Bipolar I disorder, most recent episode (or current) mixed, moderate F31.62 [facility] [id number] [place] [address] 49957- 8358 Nov, Hypokalemia E87.6 [facility] [id number] [place] [address] 56043- 5818 Nov, Bipolar I disorder, most recent episode (or current) mixed, moderate F31.62 [facility] [id number] [place] [address] 63721- 0170 Oct, Chronic pain G89.29 [facility] [id number] [place] [address] 31519- 5873 Oct, BMI 50.0-59.9, adult Z68.43 and Bipolar I disorder, most recent episode (or current) mixed, moderate F31.62 [facility] [id number] [place] [address] 87990- 9476 Oct, Bipolar I disorder, most recent episode (or current) mixed, moderate F31.62 [facility] [id number] [place] [address] 37955- 2117 Oct, [facility] [id number] [place] [address] 33097- 9059 Oct, Hypokalemia E87.6 [facility] [id number] [place] [address] 87421- 3156 Oct, DM neuro manif type II E11.49 [facility] [id number] [place] [address] 36029- 4224 Oct, Bipolar I disorder, most recent episode (or current) mixed, moderate F31.62 [facility] [id number] [place] [address] 58828- 8879 Oct, Bipolar I disorder, most recent episode (or current) mixed, moderate F31.62 [facility] [id number] [place] [address] 87403- 2747 14 Oct, 2017 Hyperkalemia E87.5 ; Falling R29.6 ; BMI 50.0-59.9, adult Z68.43 and Acute left ankle pain M25.572 [facility] [id number] [place] [address] 86826- 8513 Oct, DM neuro manif type II E11.49 [facility] [id number] [place] [address] 23982- 2322 Oct, [facility] [id number] [place] [address] 46459- 2910 Sep, Chronic pain G89.29 [facility] [id number] [place] [address] 07708- 9153 Sep, [facility] [id number] [place] [address] 57346- 0713 Sep, Bilateral primary osteoarthritis of knee M17.0 [facility] [id number] [place] [address] 45398- 8535 18 Sep, 2017 Generalized edema R60.1 [facility] [address] 76841- 9152 16 Sep, 2017 Bipolar I disorder, most recent episode (or current) mixed, moderate F31.62 [facility] [id number] [place] [address] 84004- 6296 15 Sep, 2017 Hypoxia R09.02 ; Other hypervolemia E87.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 ; Anemia of chronic illness D63.8 and BMI 50.0- 59.9, adult Z68.43 [facility] [id number] [place] [address] 18123- 6955 Sep, [facility] [address] 82705- 6941 Sep, Bipolar I disorder, most recent episode (or current) mixed, moderate F31.62 [facility] [id number] [place] [address] 70108- 4143 Aug, Chronic pain G89.29 [facility] [id number] [place] [address] 56150- 8708 Aug, Generalized edema R60.1 [facility] [id number] [place] [address] 76037- 8535 18 Aug, 2017 [facility] [id number] [place] [address] 27997- 7289 Aug, [facility] [address] 38305- 8426 14 Aug, 2017 Bipolar I disorder, most recent episode (or current) mixed, moderate F31.62 [facility] [id number] [place] [address] 31791- 5138 07 Aug, 2017 Bipolar I disorder, most recent episode (or current) mixed, moderate F31.62 [facility] [id number] [place] [address] 17356- 4760 Aug, Chronic pain G89.29 [facility] [id number] [place] [address] 3051 Jul, Bipolar I disorder, most recent episode (or current) mixed, moderate F31.62 [facility] [id number] [place] [address] 99960- 5251 Jul, Bipolar I disorder, most recent episode (or current) mixed, moderate F31.62 and BMI 60.0-69.9, adult Z68.44 [place] [address] 713548- 7594 Jul, Bipolar I disorder, most recent episode (or current) mixed, moderate F31.62 [facility] [address] 50966- 6246 Jul, Chronic pain G89.29 [facility] [id number] [place] [address] 95979- 7977 Jul, Bipolar I disorder, most recent episode (or current) mixed, moderate F31.62 [facility] [id number] [place] [address] 47850- 5886 Jun, Polyneuropathy associated with underlying disease G63 and Diabetes E11.9 [facility] [id number] [place] [address] 67733- 2132 Jun, Bipolar I disorder, most recent episode (or current) mixed, moderate F31.62 [facility] [id number] [place] [address] 68520- 4030 Jun, Chronic pain G89.29 [facility] [id number] [place] [address] 45406- 2482 May, Bipolar I disorder, most recent episode (or current) mixed, moderate F31.62 [facility] [id number] [place] [address] 25954- 3458 21 May, 2017 Bipolar I disorder, most recent episode (or current) mixed, moderate F31.62 [facility] [id number] [place] [address] 52509- 3603 20 May, 2017 Diabetic polyneuropathy associated with type 2 diabetes mellitus E11.42 [facility] [id number] [place] [address] 09695- 9864 18 May, 2017 Bipolar I disorder, most recent episode (or current) mixed, moderate F31.62 [facility] [address] [place] [address] 74417- 8641 13 May, 2017 Bipolar I disorder, most recent episode (or current) mixed, moderate F31.62 [facility] [id number] [place] [address] 04438- 8951 12 May, 2017 Chronic pain G89.29 [facility] [id number] [place] [address] 70289- 7861 30 Apr, 2017 Bipolar I disorder, most recent episode (or current) mixed, moderate F31.62 [facility] [id number] [place] [address] 96425- 3856 Apr, [facility] [id number] [place] [address] 44913- 7708 Apr, Chronic pain G89.29 and DM neuro manif type II E11.49 [facility] [id number] [place] [address] 05116- 4967 Apr, [facility] [id number] [place] [address] 10607- 7991 16 Apr, 2017 Bipolar I disorder, most recent episode (or current) mixed, moderate F31.62 [facility] [id number] [place] [address] 32526- 7192 14 Apr, 2017 Chronic pain G89.29 [facility] [id number] [place] [address] 42388- 7700 03 Aug, 2017 Iliotibial band syndrome, left M76.32 [facility] [id number] [place] [address] 77654- 3824 Apr, Bipolar I disorder, most recent episode (or current) mixed, moderate F31.62 [facility] [id number] [place] [address] 60133- 3842 Mar, Bipolar I disorder, most recent episode (or current) mixed, moderate F31.62 [facility] [id number] [place] [address] 01828- 3798 Mar, Bipolar I disorder, most recent episode (or current) mixed, moderate F31.62 [facility] [id number] [place] [address] 12683- 2188 Mar, [facility] [id number] [place] [address] 73615- 3155 Mar, Bipolar I disorder, most recent episode (or current) mixed, moderate F31.62 [facility] [id number] [place] [address] 03140- 5118 Mar, Chronic pain G89.29 [facility] [id number] [place] [address] 16583- 8372 Mar, Bipolar I disorder, most recent episode (or current) mixed, moderate F31.62 [facility] [id number] [place] [address] 72451- 3149 Mar, Bipolar I disorder, most recent episode (or current) mixed, moderate F31.62 [facility] [id number] [place] [address] 10794- 4291 Mar, Acute pain of left knee M25.562 ; Left hip pain M25.552 ; Generalized edema R60.1 and Tongue swelling R22.0 [facility] [id number] [place] [address] 92914- 1096 Mar, [facility] [id number] [place] [address] 14030- 2343 Feb, Chronic pain G89.29 [facility] [address] [address]- 0197 Feb, Diabetes E11.9 [facility] [id number] [place] [address] 78197- 4182 January, Chronic pain G89.29 [facility] [id number] [place] [address] 99924- 3542 January, [facility] [id number] [place] [address] 37564- 4978 January, Bipolar I disorder, most recent episode (or current) mixed, moderate F31.62 [facility] [id number] [place] [address] 87022- 0676 Dec, Bipolar I disorder, most recent episode (or current) mixed, moderate F31.62 [facility] [id number] [place] [address] 68727- 9851 Dec, Chronic pain G89.29 [facility] [id number] [place] [address] 06037- 8163 Dec, Bipolar I disorder, most recent episode (or current) mixed, moderate F31.62 [facility] [address] [place] [address] 45600- 2821 Dec, Diabetes E11.9 ; Essential hypertension I10 ; Chronic pain G89.29 and Morbid obesity E66.01 [facility] [address] [address]- 7994 Dec, [facility] [id number] [place] [address] 11827- 4565 Dec, Bipolar I disorder, most recent episode (or current) mixed, moderate F31.62 [facility] [id number] [place] [address] 95951- 2070 Dec, Bipolar I disorder, most recent episode (or current) mixed, moderate F31.62 [facility] [address] [address]- 8118 Nov, Chronic pain G89.29 [facility] [id number] [place] [address] 06300- 2376 Nov, Bipolar I disorder, most recent episode (or current) mixed, moderate F31.62 [facility] [id number] [place] [address] 20176- 2186 Nov, [facility] [id number] [place] [address] 80374- 5567 Nov, Bipolar I disorder, most recent episode (or current) mixed, moderate F31.62 [facility] [address] [place] [address] 30708- 6504 Nov, Bipolar I disorder, most recent episode (or current) mixed, moderate F31.62 [facility] [id number] [place] [address] 13260- 1096 Nov, [facility] [id number] [place] [address] 73183- 1411 Nov, [facility] [id number] [place] [address] 14452- 0745 Nov, [facility] [id number] [place] [address] 21014- 1782 Oct, Chronic pain G89.29 [facility] [address] [address]- 5991 Oct, Bipolar I disorder, most recent episode (or current) mixed, moderate F31.62 [facility] [id number] [place] [address] 78862- 9736 Oct, [facility] [id number] [place] [address] 16704- 4462 15 Oct, 2016 Chronic pain G89.29 ; Diabetes E11.9 ; Anxiety F41.9 and 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 [facility] [address] [address]- 5266 Oct, [facility] [id number] [place] [address] 36569- 3846 Oct, Diabetes E11.9 [facility] [address] [address] 2546 Oct, Bipolar I disorder, most recent episode (or current) mixed, moderate F31.62 [facility] [address] [address]- 2766 Sep, Chronic pain G89.29 [facility] [id number] [place] [address] 58678- 7956 Sep, Chronic pain G89.29 [facility] [id number] [place] [address] 29844- 8796 Aug, Chronic pain G89.29 [facility] [address] [place] [address] 27690- 1306 Jul, [facility] [id number] [place] [address] 80401- 0846 Jul, Diabetes E11.9 [facility] [address] [address]- 6311 Jul, Chronic pain G89.29 [facility] [address] [address]- 6923 Jul, Bipolar I disorder, most recent episode (or current) mixed, moderate F31.62 [facility] [address] [address]- 7686 Jun, Bipolar I disorder, most recent episode (or current) mixed, moderate F31.62 [facility] [address] [address]- 4006 Jun, [facility] [id number] [place] [address] 75221- 2802 Jun, Bipolar I disorder, most recent episode (or current) mixed, moderate F31.62 [facility] [id number] [place] [address] 16005- 9339 30 May, 2016 Insomnia, unspecified type G47.00 [facility] [id number] [place] [address] 58513- 8318 22 May, 2016 Bipolar I disorder, most recent episode (or current) mixed, moderate F31.62 [facility] [address] 70399- 0618 14 May, 2016 [place] [address] 64820- 5258 08 May, 2016 Bipolar I disorder, most recent episode (or current) mixed, moderate F31.62 [facility] [id number] [place] [address] 28462- 5660 06 May, 2016 Diabetes E11.9 and Essential hypertension I10 [facility] [id number] [place] [address] 87224- 0472 Apr, Chronic pain G89.29 [facility] [address] 28106- 1161 Apr, Bipolar I disorder, most recent episode (or current) mixed, moderate F31.62 [facility] [id number] [place] [address] 93086- 4605 Apr, [facility] [address] 36986- 7233 Apr, [facility] [id number] [place] [address] 76506- 6937 Mar, Chronic pain G89.29 ; Headache, unspecified headache type R51 ; Neuropathy G62.9 ; Pain of right hip joint M25.551 and Essential hypertension I10 [facility] [id number] [place] [address] 51840- 6185 Mar, Chronic pain G89.29 [facility] [address] [address]- 5186 Mar, Bipolar I disorder, most recent episode (or current) mixed, moderate F31.62 [facility] [id number] [place] [address] 69157- 8466 Feb, Bipolar I disorder, most recent episode (or current) mixed, moderate F31.62 and Insomnia, unspecified type G47.00 [facility] [id number] [place] [address] 15069- 3804 Feb, Chronic pain G89.29 [facility] [id number] [place] [address] 46988- 7082 Feb, Bipolar I disorder, most recent episode (or current) mixed, moderate F31.62 [facility] [id number] [place] [address] 25073- 9473 January, Bipolar I disorder, most recent episode (or current) mixed, moderate F31.62 [facility] [address] [place] [address] 06099- 3224 January, Chronic pain G89.29 [facility] [id number] [place] [address] 09413- 1970 January, Chronic pain G89.29 and Essential hypertension I10 [facility] [id number] [place] [address] 11349- 9867 January, Bipolar I disorder, most recent episode (or current) mixed, moderate F31.62 [facility] [id number] [place] [address] 21167- 1061 Dec, [facility] [id number] [place] [address] 16293- 8343 Dec, [facility] [id number] [place] [address] 55241- 7196 Dec, [facility] [id number] [place] [address] 06262- 8513 Dec, [facility] [id number] [place] [address] 49981- 1783 Nov, Reactive airway disease J45.909 [facility] [id number] [place] [address] 17469- 2535 Nov, [facility] [address] 75637- 5111 Nov, [facility] [address] 77254- 6889 Nov, [facility] [address] 75140- 3656 Nov, [facility] [address] 05685- 8490 Nov, Onychomycosis B35.1 ; Hammertoe M20.40 ; [place] or callus L84 and DM neuro manif type II E11.49 [facility] [id number] [place] [address] 38605- 6213 Nov, Chronic pain G89.29 ; Leukocytosis D72.829 and Diabetes E11.9 [facility] [id number] [place] [address] 91620- 5407 Nov, [facility] [id number] [place] [address] 94799- 0054 Oct, Bronchitis J40 [facility] [id number] [place] [address] 53723- 9229 Oct, [facility] [id number] [place] [address] 02446- 7752 Oct, [facility] [id number] [place] [address] 27333- 1061 Oct, Mastoiditis, unspecified laterality H70.90 and Type 2 diabetes mellitus with complication E11.8 [facility] [address] 63058- 3976 Sep, [facility] [id number] [place] [address] 59940- 8338 Sep, Dysuria R30.0 ; Cough R05 ; Benign prostatic hyperplasia with lower urinary tract symptoms, unspecified morphology N40.1 ; Hypokalemia E87.6 and Eustachian tube dysfunction, unspecified laterality H69.80 [facility] [address] [place] [id number] [place] [address] 96503- 8930 Sep, Moderate mixed bipolar I disorder F31.62 [facility] [address] [place] [place] [id number] [place] [address] 58704- 2021 Sep, Hypokalemia E87.6 [facility] [address] [place] [id number] [place] [address] 40481- 9586 Sep, [facility] [address] [id number] [place] [address] 75184- 1715 Sep, Upper respiratory tract infection, unspecified type J06.9 [facility] [id number] [place] [address] 54115- 1140 Aug, [facility] [address] [id number] [place] [address] 21885- 6220 Aug, Dysuria R30.0 [facility] [address] [id number] [place] [address] 88514- 6302 Aug, [facility] [address] [place] [id number] [place] [address] 55911- 9309 Jul, [facility] [address] [id number] [place] [address] 74953- 4590 Jul, [facility] [id number] [place] [address] 107181- 4885 Jul, [facility] [id number] [place] [address] 06507- 1880 Jul, [facility] [id number] [place] [address] 25572- 8613 Jun, [facility] [address] [address]- 0281 Jun, [facility] [id number] [place] [address] 70008- 7605 Jun, [facility] [address] [address]- 9958 May, [facility] [id number] [place] [address] 27482- 2362 May, Bipolar I disorder, most recent episode (or current) mixed, moderate 296.62 [facility] [id number] [place] [address] 72954- 5581 May, [facility] [id number] [place] [address] 51277- 4442 May, Bipolar I disorder, most recent episode (or current) mixed, moderate 296.62 and Major depressive disorder, recurrent episode, severe, specified as with psychotic behavior 296.34 [facility] [address] [address]- 9211 May, Bipolar I disorder, most recent episode (or current) mixed, moderate 296.62 [facility] [address] [address]- 7600 May, [facility] [address] [address]- 0129 Apr, [facility] [address] [address]- 3603 Apr, [facility] [id number] [place] [address] 49918- 6636 Apr, Unspecified disorder of kidney and ureter 593.9 and Diabetes mellitus type 2, uncontrolled 250.02 [facility] [address] [address]- 7403 Apr, [facility] [id number] [place] [address] 78221- 1503 Apr, [facility] [address] [address]- 6552 Apr, [facility] [id number] [place] [address] 979467- 4441 Apr, [facility] [address] [address]- 2461 Apr, Diabetes mellitus type II, uncontrolled 250.02 [facility] [id number] [place] [address] 81156- 7392 Apr, [facility] [id number] [place] [address] 57817- 1649 Mar, [facility] [id number] [place] [address] 38979- 8226 Mar, [facility] [id number] [place] [address] 79759- 4188 Mar, [facility] [id number] [place] [address] 90350- 9337 Mar, Major depressive disorder, recurrent episode, severe, specified as with psychotic behavior 296.34 and Bipolar I disorder, most recent episode (or current) mixed, moderate 296.62 [facility] [id number] [place] [address] 05124- 8586 Mar, Diabetes 250.00 ; Anuria 788.5 ; Nausea and vomiting 787.01 and Diarrhea 787.91 [facility] [address] [address]- 8362 Mar, Diabetes 250.00 [facility] [id number] [place] [address] 43173- 9352 Mar, [facility] [address] [address]- 3586 Mar, Diabetes 250.00 [facility] [id number] [place] [address] 84711- 7921 Mar, [facility] [id number] [place] [address] 50766- 3556 Mar, [facility] [id number] [place] [address] 55571- 2667 Mar, [facility] [id number] [place] [address] 56841- 6659 Mar, [facility] [id number] [place] [address] 65698- 8429 Mar, Bipolar I disorder, most recent episode (or current) mixed, moderate 296.62 and Major depressive disorder, recurrent episode, severe, specified as with psychotic behavior 296.34 [facility] [id number] [place] [address] 61949- 7523 Mar, Magnesium deficiency 275.2 ; Hypokalemia 276.8 ; Nausea & vomiting 787.01 and Diabetes mellitus type 2, uncontrolled 250.02 [facility] [id number] [place] [address] 88316- 2742 Feb, [facility] [id number] [place] [address] 08761- 1917 Feb, Bipolar I disorder, most recent episode (or current) mixed, moderate 296.62 [facility] [id number] [place] [address] 95776- 8676 Feb, Nausea and vomiting 787.01 ; Left elbow pain 719.42 ; Anuria 788.5 and Diabetes 250.00 [facility] [id number] [place] [address] 80755- 4269 Feb, [facility] [id number] [place] [address] 26997- 4818 Feb, Hypopotassemia 276.8 and Hypokalemia 276.8 [facility] [id number] [place] [address] 27027- 5602 Feb, Hypopotassemia 276.8 and Hypokalemia 276.8 [address] [address]- 4366 Feb, Seborrheic keratoses 702.19 [facility] [id number] [place] [address] 29058- 9885 Feb, Hypopotassemia 276.8 and Low magnesium levels 275.2 [facility] [id number] [place] [address] 11808- 6153 January, [facility] [id number] [place] [address] 84505- 1154 January, [facility] [id number] [place] [address] 09326- 5079 January, [facility] [id number] [place] [address] 96458- 7160 January, Scalp lesion 709.9 [facility] [id number] [place] [address] 10383- 2880 January, [facility] [id number] [place] [address] 68039- 7722 Dec, Tear of medial cartilage or meniscus of knee, current 836.0 and 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 [facility] [address] [address]- 4458 Dec, [facility] [address] [address]- 9418 Dec, [facility] [address] [address]- 8831 Dec, Squamous cell carcinoma, 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 [facility] [id number] [place] [address] 16922- 1728 Dec, [facility] [address] [address]- 2676 Dec, [facility] [address] [address]- 7854 Nov, [facility] [place] [facility] [address] [id number] [place] [address]- 4624 Nov, [facility] [place] [facility] [address] [id number] [place] [address]- 2333 Nov, [facility] [place] [facility] [address] [id number] [place] [address]- 4741 Nov, [facility] [place] [facility] [address] [id number] [place] [address]- 9223 Nov, [facility] [place] [facility] [address] [id number] [place] [address]- 9163 Nov, [facility] [place] [facility] [address] [id number] [place] [address]- 2144 Nov, [facility] [place] [facility] [address] [id number] [place] [address]- 6188 Nov, [facility] [place] [facility] [address] [id number] [place] [address]- 0969 Nov, [facility] [place] [facility] [address] [id number] [place] [address]- 0599 Nov, [facility] [place] [facility] [address] [id number] [address]- 5559 Nov, [facility] [place] [facility] [address] [id number] [address]- 5456 Nov, [facility] [place] [facility] [address] [id number] [address]- 6102 Oct, [facility] [place] [facility] [address] [id number] [place] [address]- 6768 Oct, [facility] [place] [facility] [address] [id number] [address]- 7967 Oct, [facility] [place] [facility] [address] [id number] [place] [address]- 1114 Oct, [facility] [place] [facility] [address] [id number] [place] [address]- 0832 Oct, 2014 [facility] [place] [facility] [address] [id number] [place] [address]- 9471 Oct, [facility] [place] [facility] [address] [id number] [place] [address]- 2666 Oct, 2014 [facility] [place] [facility] [address] [id number] [place] [address]- 2986 Oct, 2014 [facility] [place] [facility] [address] [id number] [place] [address]- 2972 Oct, [facility] [place] [facility] [address] [id number] [place] [address]- 4709 Sep, [facility] [place] [facility] [address] [id number] [place] [address]- 6605 Sep, [facility] [place] [facility] [address] [id number] [place] [address]- 6471 Sep, [facility] [place] [facility] [address] [id number] [place] [address]- 0367 Sep, [facility] [place] [facility] [address] [id number] [place] [address]- 5866 Sep, [facility] [place] [facility] [address] [id number] [place] [address]- 7548 Sep, [facility] [place] [facility] [address] [id number] [place] [address]- 3294 Sep, [facility] [place] [facility] [address] [id number] [place] [address]- 4716 Sep, [facility] [place] [facility] [address] [id number] [place] [address]- 3130 Sep, [facility] [place] [facility] [address] [id number] [place] [address]- 0416 Sep, [facility] [place] [facility] [address] [id number] [place] [address]- 9709 Sep, [facility] [place] [facility] [address] [id number] [place] [address]- 8675 Sep, [facility] [place] [facility] [address] [id number] [place] [address]- 2269 Sep, [facility] [place] [facility] [address] [id number] [place] [address]- 3971 Sep, [facility] [place] [facility] [address] [id number] [place] [address]- 8570 Sep, [facility] [place] [facility] [address] [id number] [place] [address]- 2600 Sep, [facility] [place] [facility] [address] [id number] [place] [address]- 1941 Aug, [facility] [place] [facility] [address] [id number] [place] [address]- 1979 Aug, [facility] [place] [facility] [address] [id number] [place] [address]- 8731 Aug, [facility] [place] [facility] [address] [id number] [place] [address]- 8023 Aug, [facility] [place] [facility] [address] [id number] [place] [address]- 9865 Aug, [facility] [place] [facility] [address] [id number] [place] [address]- 4426 Aug, [facility] [place] [facility] [address] [id number] [place] [address]- 7691 Aug, [facility] [place] [facility] [address] [id number] [place] [address]- 6478 Aug, [facility] [place] [facility] [address] [id number] [place] [address]- 7313 Aug, [facility] [place] [facility] [address] [id number] [place] [address]- 2230 Aug, [facility] [place] [facility] [address] [id number] [place] [address]- 8456 Aug, [facility] [address] [place] [id number] Aug, [facility] [address] [id number] [place] [address]- 1734 Aug, [facility] [address] [id number] [place] [address]- 6836 Aug, [facility] [place] [facility] [address] [id number] [place] [address]- 3164 Aug, [facility] [address] [id number] [place] [address]- 6791 Aug, [facility] [address] [id number] [place] [address]- 3594 Aug, [facility] [address] [id number] [place] [address]- 9321 Aug, [facility] [place] [facility] [address] [id number] [place] [address]- 2147 Aug, [facility] [place] [facility] [address] [id number] [place] [address]- 2388 Aug, [facility] [place] [facility] [address] [id number] [place] [address]- 9591 Aug, [facility] [place] [facility] [address] [id number] [place] [address]- 9054 Aug, [facility] [place] [facility] [address] [id number] [place] [address]- 2818 Aug, [facility] [place] [facility] [address] [id number] [place] [address]- 5532 Aug, [facility] [place] [facility] [address] [id number] [place] [address]- 2038 Aug, [facility] [place] [facility] [address] [id number] [place] [address]- 8182 Aug, [facility] [place] [facility] [address] [id number] [place] [address]- 9901 Aug, [facility] [place] [facility] [address] [id number] [place] 2622 Aug, [facility] [place] [facility] [address] [id number] [place] [address]- 5186 Aug, [facility] [place] [facility] [address] [id number] [place] [address]- 5172 Aug, [facility] [place] [facility] [address] [id number] [place] [address]- 1622 Jul, [facility] [place] [facility] [address] [id number] [place] [address]- 4044 Jul, [facility] [place] [facility] [address] [id number] [place] [address]- 6625 Jul, [facility] [place] [facility] [address] [id number] [place] [address]- 5255 Jul, [facility] [place] [facility] [address] [id number] [place] [address]- 6261 Jul, [facility] [place] [facility] [address] [id number] [place] [address]- 7936 Jul, [facility] [place] [facility] [address] [facility] [id number] [place] [address]- 3207 Jul, [facility] [place] [facility] [address] [id number] [place] [address]- 2502 Jul, [facility] [place] [facility] [address] [id number] [place] [address]- 7422 Jul, [facility] [place] [facility] [address] [id number] [place] 9392 Jul, [facility] [place] [facility] [address] [id number] [place] [address]- 0659 Jun, [facility] [place] [facility] [address] [id number] [place] [address]- 9087 Jun, [facility] [place] [facility] [address] [id number] [place] [address]- 4523 Jun, [facility] [place] [facility] [address] [id number] [place] [address]- 8299 Jun, [facility] [place] [facility] [address] [id number] [place] [address]- 3096 Jun, [facility] [place] [facility] [address] [id number] [place] [address]- 0760 Jun, [facility] [place] [facility] [address] [id number] [place] [address]- 3328 Jun, [facility] [place] [facility] [address] [id number] [place] [address]- 7076 Jun, [facility] [place] [facility] [address] [id number] [place] [address]- 5931 Jun, [facility] [place] [facility] [address] [id number] [place] [address]- 5163 Jun, [facility] [place] [facility] [address] [id number] [place] [address]- 2930 29 May, 2014 [facility] [place] [facility] [address] [id number] [address]- 1033 29 May, 2013 [facility] [place] [facility] [address] [id number] [place] [address]- 8901 26 May, 2013 [facility] [place] [facility] [address] [id number] [place] [address]- 1250 26 May, 2013 [facility] [place] [facility] [address] [id number] [place] [address]- 6315 17 Sep, 2013 [facility] [place] [facility] [address] [id number] [place] [address]- 1930 17 May, 2013 [facility] [place] [facility] [address] [id number] [address]- 9432 15 May, 2013 [facility] [place] [facility] [address] [id number] [place] [address]- 3312 15 May, 2013 [facility] [place] [facility] [address] [id number] [place] [address]- 1066 15 May, 2013 [facility] [place] [facility] [address] [id number] [place] [address]- 6336 15 May, 2013 [facility] [place] [facility] [address] [id number] [place] [address]- 8726 10 May, 2013 [facility] [place] [facility] [address] [id number] [place] [address]- 1057 10 May, 2013 [facility] [place] [facility] [address] [id number] [place] [address]- 6984 09 May, 2013 [facility] [place] [facility] [address] [id number] [place] [address]- 7494 May, 2013 [facility] [place] [facility] [address] [id number] [place] [address]- 2939 May, 2013 [facility] [place] [facility] [address] [id number] [place] [address]- 8051 May, 2013 [facility] [place] [facility] [address] [id number] [place] [address]- 9584 Apr, [facility] [place] [facility] [address] [id number] [place] [address]- 3423 Apr, [facility] [place] [facility] [address] [id number] [place] [address]- 6225 Apr, [facility] [place] [facility] [address] [id number] [place] [address]- 2545 Apr, [facility] [place] [facility] [address] [id number] [place] [address]- 3027 Apr, [facility] [place] [facility] [address] [id number] [place] [address]- 3295 Apr, [facility] [place] [facility] [address] [id number] [place] [address]- 6600 Apr, [facility] [place] [facility] [address] [id number] [place] [address]- 2612 Apr, [facility] [place] [facility] [address] [id number] [place] [address]- 1095 Apr, [facility] [place] [facility] [address] [id number] [place] [address]- 7321 Apr, [facility] [place] [facility] [address] [id number] [place] [address]- 3061 Apr, [facility] [place] [facility] [address] [id number] [place] [address]- 3961 Apr, [facility] [place] [facility] [address] [id number] [place] [address]- 2871 Apr, [facility] [place] [facility] [address] [id number] [place] [address]- 7564 Apr, [facility] [place] [facility] [address] [id number] [place] [address]- 6229 Apr, [facility] [place] [facility] [address] [id number] [place] [address]- 3895 Mar, [facility] [place] [facility] [address] [id number] [place] [address]- 7342 Mar, [facility] [place] [facility] [address] [id number] [place] [address]- 2009 Mar, [facility] [place] [facility] [address] [id number] [place] [address]- 6643 Mar, [facility] [place] [facility] [address] [id number] [place] [address]- 7295 Mar, [facility] [place] [facility] [address] [id number] [place] [address]- 4128 Mar, [facility] [place] [facility] [address] [id number] [place] [address]- 5195 Mar, [facility] [place] [facility] [address] [id number] [place] [address]- 5498 Mar, 2013 [facility] [place] [facility] [address] [id number] [place] [address]- 6281 Mar, 2013 [facility] [place] [facility] [address] [id number] [place] [address]- 0251 Mar, 2013 [facility] [place] [facility] [address] [id number] [place] [address]- 5883 Mar, 2013 [facility] [place] [facility] [address] [id number] [place] [address] Mar, 2013 [facility] [place] [facility] [address] [id number] [place] [address] Mar, 2013 [facility] [place] [facility] [address] [id number] [place] [address] Mar, 2013 [facility] [place] [facility] [address] [id number] [place] [address] Mar, 2013 [facility] [place] [facility] [address] [id number] [place] [address] Mar, 2013 [facility] [place] [facility] [address] [id number] [place] [address] Mar, [facility] [place] [facility] [address] [id number] [place] [address] Mar, [facility] [place] [facility] [address] [id number] [place] [address] Feb, [facility] [place] [facility] [address] [id number] [address] Feb, [facility] [place] [facility] [address] [id number] [place] [address] Feb, [facility] [place] [facility] [address] [id number] [place] [address] Feb, [facility] [place] [facility] [address] [id number] [place] [address] Feb, [facility] [place] [facility] [address] [id number] [place] [address] Feb, [facility] [place] [facility] [address] [id number] [place] [address] Feb, [facility] [place] [facility] [address] [id number] [place] [address] Feb, [facility] [place] [facility] [address] [id number] [place] [address] Feb, [facility] [place] [facility] [address] [id number] [place] [address] Feb, [facility] [place] [facility] [address] [id number] [place] [address] Feb, [facility] [place] [facility] [address] [id number] [place] [address] Feb, [facility] [place] [facility] [address] [id number] [place] [address] Feb, [facility] [place] [facility] [address] [id number] [place] [address]60 Feb, [facility] [place] [facility] [address] [id number] [place] [address] January, [facility] [place] [facility] [address] [id number] [place] [address] January, [facility] [place] [facility] [address] [id number] [place] [address] January, [facility] [place] [facility] [address] [id number] [place] [address]- [address] January, [facility] [place] [facility] [address] [id number] [place] [address] January, [facility] [place] [facility] [address] [id number] [place] [address] January, [facility] [place] [facility] [address] [id number] [place] [address] January, [facility] [place] [facility] [address] [id number] [place] [address] January, [facility] [place] [facility] [address] [id number] [place] [address] January, [facility] [place] [facility] [address] [id number] [place] [address] January, [facility] [place] [facility] [address] [id number] [place] [address] January, [facility] [address] [id number] [place] [address] January, [facility] [place] [facility] [address] [id number] [place] [address] January, [facility] [address] [id number] [place] [address] January, [facility] [address] [id number] [place] [address] Dec, [facility] [place] [facility] [address] [id number] [place] [address] Dec, [facility] [place] [facility] [address] [id number] [place] [address] Dec, [facility] [place] [facility] [address] [id number] [place] [address] Dec, [facility] [place] [facility] [address] [id number] [place] [address] Dec, [facility] [place] [facility] [address] [id number] [place] [address]- [address] Dec, [facility] [place] [facility] [address] [id number] [place] [address] Dec, [facility] [place] [facility] [address] [id number] [place] [address] Dec, [facility] [place] [facility] [address] [id number] [place] [address]- [address] Dec, [facility] [place] [facility] [address] [id number] [place] [address]- [address] Dec, [facility] [place] [facility] [address] [id number] [place] [address] Nov, [facility] [place] [facility] [address] [id number] [place] [address]- [address] Nov, [facility] [place] [facility] [address] [id number] [place] [address]- [address] Nov, [facility] [place] [facility] [address] [id number] [place] [address]- [address]679 Nov, [facility] [place] [facility] [address] [id number] [place] [address] Nov, [facility] [place] [facility] [address] [facility] [id number] [place] [address]- [address] Nov, [facility] [place] [facility] [address] [id number] [place] [address]- [address]34 Nov, [facility] [place] [facility] [address] [id number] [place] [address]- [address] Nov, [facility] [place] [facility] [address] [facility] [id number] [place] [address]- [address] Nov, [facility] [place] [facility] [address] [id number] [place] [address] Nov, [facility] [place] [facility] [address] [id number] [place] [address]- [address] Oct, [facility] [place] [facility] [address] [id number] [place] [address]- [address] Oct, [facility] [place] [facility] [address] [address] [id number] [place] [address] Oct, [facility] [place] [facility] [address] [id number] [place] [address] 7977 Oct, [facility] [place] [facility] [address] [id number] [place] [address] 9994 Oct, [facility] [place] [facility] [address] [id number] [place] [address] 9166 Oct, [facility] [place] [facility] [address] [id number] [place] [address]- 4436 Oct, [facility] [place] [facility] [address] [id number] [place] [address] 5076 Oct, [facility] [place] [facility] [address] [id number] [place] [address]- 2685 Oct, [facility] [place] [facility] [address] [id number] [place] [address] 3364 Oct, [facility] [place] [facility] [address] [id number] [place] [address]- 9183 Oct, [facility] [place] [facility] [address] [id number] [place] [address] 7488 Oct, [facility] [place] [facility] [address] [id number] [place] [address] 7996 Oct, [facility] [place] [facility] [address] [id number] [place] [address]- 6976 Oct, [facility] [place] [facility] [address] [id number] [place] [address]- 0691 Sep, [facility] [place] [facility] [address] [id number] [place] [address]- 5672 Sep, [facility] [place] [facility] [address] [id number] [place] [address]- 9185 Sep, [facility] [place] [facility] [address] [id number] [place] [address]- 8940 Sep, [facility] [place] [facility] [address] [id number] [place] [address]- 6166 Sep, [facility] [place] [facility] [address] [id number] [place] [address]- 7592 14 Sep, 2013 [facility] [address] [id number] [place] [address]- 5242 14 Sep, 2013 [facility] [place] [facility] [address] [id number] [place] [address]- 9727 14 Sep, 2013 [facility] [address] [id number] [place] [address]- 7614 08 Sep, 2013 [facility] [place] [facility] [address] [id number] [place] [address]- 2640 08 Sep, 2013 [facility] [place] [facility] [address] [id number] [place] [address]- 4342 Aug, [facility] [place] [facility] [address] [id number] [place] [address]- 5118 Aug, [facility] [place] [facility] [address] [id number] [place] [address]- 2652 Jul, [facility] [place] [facility] [address] [id number] [place] [address]- 4359 Jul, [facility] [place] [facility] [address] [id number] [place] [address]- 9049 Jul, [facility] [place] [facility] [address] [id number] [place] [address]- 7050 Jul, [facility] [place] [facility] [address] [id number] [place] [address]- 9163 Jul, [facility] [place] [facility] [address] [id number] [place] [address]- 1659 Jul, [facility] [place] [facility] [address] [id number] [place] [address]- 6652 Jul, [facility] [place] [facility] [address] [id number] [place] [address]- 8430 Jul, [facility] [place] [facility] [address] [id number] [place] [address]- 3788 Jul, [facility] [place] [facility] [address] [id number] [place] [address]- 2626 08 Jul, 2012 [facility] [place] [facility] [address] [id number] [place] [address]- 9149 Jul, 2012 [facility] [place] [facility] [address] [id number] [place] [address]- 2684 Jul, 2012 [facility] [place] [facility] [address] [id number] [place] [address]- 5367 Jul, 2012 [facility] [place] [facility] [address] [id number] [place] [address]- 0130 Jul, 2012 [facility] [place] [facility] [address] [id number] [place] [address]- 9875 Jul, [facility] [place] [facility] [address] [id number] [place] [address]- 2824 Jul, [facility] [place] [facility] [address] [id number] [place] [address]- 9820 Jul, [facility] [place] [facility] [address] [id number] [place] [address]- 8507 Jul, [facility] [place] [facility] [address] [id number] [place] [address]- 2763 Jul, [facility] [place] [facility] [address] [id number] [place] [address]- 3855 Jun, 2012 [facility] [place] [facility] [address] [id number] [place] [address]- 5927 Jun, [facility] [place] [facility] [address] [id number] [place] [address]- 7214 Jun, [facility] [place] [facility] [address] [id number] [place] [address]- 1948 Jun, 2012 [facility] [place] [facility] [address] [id number] [place] [address]- 5732 Jun, 2012 [facility] [place] [facility] [address] [id number] [place] [address]- 6542 16 Jun, 2013 [facility] [place] [facility] [address] [id number] [place] [address]- 7816 10 Jun, 2013 [facility] [place] [facility] [address] [id number] [place] [address]- 3570 10 Jun, 2013 [facility] [place] [facility] [address] [id number] [place] [address]- 3786 Jun, [facility] [place] [facility] [address] [id number] [place] [address]- 8867 Jun, [facility] [place] [facility] [address] [id number] [place] [address]- 7608 Jun, [facility] [place] [facility] [address] [id number] [place] [address]- 4822 26 May, 2012 [facility] [place] [facility] [address] [id number] [place] [address]- 1432 25 May, 2012 [facility] [place] [facility] [address] [id number] [place] [address]- 8734 19 May, 2012 [facility] [place] [facility] [address] [id number] [place] [address]- 2022 17 May, 2012 [facility] [place] [facility] [address] [id number] [place] [address]- 2180 11 May, 2013 [facility] [place] [facility] [address] [id number] [place] [address]- 9379 10 May, 2013 [facility] [place] [facility] [address] [id number] [place] [address]- 4835 09 May, 2012 [facility] [place] [facility] [address] [id number] [place] [address]- 2544 05 May, 2012 [facility] [place] [facility] [address] [id number] [place] [address]- 6678 30 Apr, 2013 [facility] [place] [facility] [address] [id number] [place] [address]- 5132 Apr, [facility] [place] [facility] [address] [id number] [place] [address]- 8594 Apr, [facility] [address] [id number] [place] [address]- 3020 Apr, [facility] [address] [id number] [place] [address]- 0671 Apr, [facility] [address] [id number] [place] [address]- 6219 Mar, [facility] [address] [id number] [place] [address]- 5615 Mar, [facility] [address] [id number] [place] [address]- 5718 Mar, [facility] [address] [id number] [place] [address]- 3338 Mar, [facility] [address] [id number] [place] [address]- 7302 Mar, [facility] [address] [id number] [place] [address]- 5041 Mar, [facility] [address] [id number] [place] [address]- 5497 Mar, [facility] [address] [id number] [place] [address]- 5878 Mar, [facility] [address] [id number] [place] [address]- 9237 Feb, [facility] [address] [id number] [place] [address]- 4672 Feb, [facility] [place] [facility] [address] [id number] [place] [address]- 0155 January, [facility] [place] [facility] [address] [id number] [place] [address]- 6256 January, [facility] [address] [id number] [place] [address]- 6893 Dec, [facility] [place] [facility] [address] [id number] [place] [address]- 4358 09 Dec, 2012 [facility] [place] [facility] [address] [id number] [place] [address]- 3115 23 Nov, 2012 [facility] [place] [facility] [address] [id number] [place] [address]- 1276 Nov, [facility] [place] [facility] [address] [id number] [place] [address]- 3261 Nov, [facility] [address] [id number] [place] [address]- 1828 14 Nov, 2012 [facility] [place] [facility] [address] [id number] [place] [address]- 5585 27 Oct, 2012 [facility] [place] [facility] [address] [facility] [id number] [place] [address]- 0792 Oct, [facility] [place] [facility] [address] [id number] [place] [address]- 1037 Oct, [facility] [place] [facility] [address] [id number] [place] [address]- 5802 26 Oct, 2012 [facility] [place] [facility] [address] [facility] [place] [id number] [place] [address]- 3582 16 Oct, 2012 [facility] [place] [facility] [address] [id number] [place] [address]- 4445 14 Oct, 2012 [facility] [place] [facility] [address] [id number] [place] [address]- 9082 08 Oct, 2012 [facility] [place] [facility] [address] [id number] [place] [address]- 6294 07 Oct, 2012 [facility] [place] [facility] [address] [facility] [place] [id number] [place] [address]- 3613 03 Oct, 2012 [facility] [place] [facility] [address] [facility] [id number] [place] [address]- 6211 Sep, [facility] [place] [facility] [address] [id number] [place] [address]- 0471 29 Sep, 2012 [facility] [address] [id number] [place] [address]- 1208 Sep, [facility] [address] [id number] [place] [address]- 3879 Sep, [facility] [address] [id number] [place] [address]- 9914 17 Sep, 2012 [facility] [address] [id number] [place] [address]- 3330 10 Sep, 2012 [facility] [address] [id number] [place] [address]- 1754 Sep, [facility] [address] [id number] [place] [address]- 0885 Sep, [facility] [address] [id number] [place] [address]- 5460 Aug, [facility] [address] [id number] [place] [address]- 9794 31 Aug, 2012 [facility] [address] [id number] [place] [address]- 9917 Aug, [facility] [address] [id number] [place] [address]- 3890 Aug, [facility] [address] [id number] [place] [address] 2540 Aug, [facility] [address] [id number] [place] [address]- 2544 Aug, [facility] [address] [id number] [place] [address]- 2586 18 Aug, 2012 [facility] [address] [id number] [place] [address]- 4202 18 Aug, 2012 [facility] [address] [id number] [place] [address]- 4616 Jul, [facility] [place] [facility] [address] [id number] [place] [address]- 5459 Jul, [facility] [place] [facility] [address] [id number] [place] [address]- 7268 Jul, [facility] [place] [facility] [address] [id number] [place] [address]- 7949 Jul, [facility] [place] [facility] [address] [id number] [place] [address]- 7122 Jul, [facility] [place] [facility] [address] [id number] [place] [address]- 9476 Jul, [facility] [place] [facility] [address] [id number] [place] [address]- 3554 Jun, [facility] [place] [facility] [address] [facility] [id number] [place] [address]- 7512 Jun, [facility] [place] [facility] [address] [id number] [place] [address]- 5674 Jun, [facility] [place] [facility] [address] [facility] [id number] [place] [address]- 6152 Jun, [facility] [place] [facility] [address] [facility] [place] [id number] [place] [address]- 5111 Jun, [facility] [place] [facility] [address] [facility] [id number] [place] [address]- 4048 Jun, [facility] [place] [facility] [address] [id number] [place] [address]- 7044 Jun, [facility] [place] [facility] [address] [facility] [id number] [place] [address]- 6337 Jun, [facility] [place] [facility] [address] [id number] [place] [address]- 2414 Jun, [facility] [place] [facility] [address] [facility] [id number] [place] [address]- 9522 26 May, 2012 [facility] [place] [facility] [address] [id number] [place] [address]- 1043 May, [facility] [place] [facility] [address] [id number] [place] [address]- 1752 May, [facility] [place] [facility] [address] [id number] [place] [address]- 2941 Apr, [facility] [place] [facility] [address] [id number] [place] [address]- 5915 Apr, [facility] [place] [facility] [address] [id number] [place] [address]- 8161 Apr, [facility] [place] [facility] [address] [id number] [place] [address]- 5433 Apr, [facility] [place] [facility] [address] [id number] [place] [address]- 6679 Apr, [facility] [place] [facility] [address] [id number] [place] [address]- 9978 Apr, [facility] [place] [facility] [address] [id number] [place] [address]- 7490 Mar, [facility] [place] [facility] [address] [id number] [place] [address]- 9823 Mar, [facility] [place] [facility] [address] [facility] [id number] [place] [address]- 8092 Mar, [facility] [place] [facility] [address] [id number] [place] [address]- 2855 Mar, [facility] [place] [facility] [address] [id number] [place] [address]- 2065 Feb, [facility] [place] [facility] [address] [id number] [place] [address]- 7984 Feb, [facility] [place] [facility] [address] [id number] [place] [address]- 6494 Feb, [facility] [place] [facility] [address] [facility] [id number] [place] [address]- 1647 Feb, [facility] [place] [facility] [address] [id number] [place] [address]- 6196 Feb, [facility] [address] [id number] [place] [address]- 6355 January, [facility] [place] [facility] [address] [id number] [place] [address]- 4736 January, [facility] [address] [id number] [place] [address]- 2096 January, [facility] [place] [facility] [address] [id number] [place] [address]- 4506 January, [facility] [place] [facility] [address] [id number] [place] [address]- 6831 January, [facility] [place] [facility] [address] [id number] [place] [address]- 7156 January, [facility] [place] [facility] [address] [id number] [place] [address]- 6240 Dec, [facility] [place] [facility] [address] [id number] [place] [address]- 2022 Dec, [facility] [place] [facility] [address] [id number] [place] [address]- 4690 Dec, [facility] [place] [facility] [address] [id number] [place] [address]- 8568 Dec, [facility] [place] [facility] [address] [id number] [place] [address]- 3052 Dec, [facility] [place] [facility] [address] [id number] [place] [address]- 0975 Nov, [facility] [place] [facility] [address] [id number] [place] [address]- 7346 14 Nov, 2011 [facility] [place] [facility] [address] [id number] [place] [address]- 3036 Nov, [facility] [place] [facility] [address] [id number] [place] [address]- 1659 Nov, [facility] [place] [facility] [address] [id number] [place] [address]- 2793 Oct, [facility] [place] [facility] [address] [id number] [place] [address]- 2916 Oct, [facility] [place] [facility] [address] [id number] [place] [address]- 1546 Oct, [facility] [place] [facility] [address] [id number] [place] [address]- 4656 Oct, [facility] [place] [facility] [address] [id number] [place] [address]- 8061 Oct, [facility] [place] [facility] [address] [id number] [place] [address]- 4537 Sep, [facility] [place] [facility] [address] [id number] [place] [address]- 2400 Sep, [facility] [place] [facility] [address] [id number] [place] [address]- 4412 Sep, [facility] [place] [facility] [address] [id number] [place] [address]- 4358 Sep, [facility] [place] [facility] [address] [id number] [place] [address]- 5270 Sep, [facility] [place] [facility] [address] [id number] [place] [address]- 0714 Sep, [facility] [place] [facility] [address] [id number] [place] [address]- 0851 Aug, [facility] [place] [facility] [address] [id number] [place] [address]- 2130 Aug, [facility] [place] [facility] [address] [id number] [place] [address]- 8452 Aug, [facility] [place] [facility] [address] [id number] [place] [address]- 3665 Jul, [facility] [place] [facility] [address] [id number] [place] [address]- 1320 Jul, [facility] [place] [facility] [address] [id number] [place] [address]- 1969 Jul, [facility] [place] [facility] [address] [id number] [place] [address]- 0046 Jul, [facility] [place] [facility] [address] [id number] [place] [address]- 4601 Jun, [facility] [place] [facility] [address] [id number] [place] [address]- 0722 Jun, [facility] [place] [facility] [address] [id number] [place] [address]- 4961 Jun, [facility] [place] [facility] [address] [id number] [place] [address]- 1363 Jun, [facility] [place] [facility] [address] [id number] [place] [address]- 5007 Jun, [facility] [place] [facility] [address] [id number] [place] [address]- 4997 Jun, [facility] [place] [facility] [address] [id number] [place] [address]- 2620 Mar, [facility] [place] [facility] [address] [id number] [place] [address] Dec, [facility] [place] [facility] [address] [id number] [place] [address] Dec, [facility] [place] [facility] [address] [id number] [place] [address] Nov, [facility] [place] [facility] [address] [id number] [place] [address] 16 Nov, 2010 [facility] [place] [facility] [address] [id number] [place] [address] Sep, [facility] [place] [facility] [address] [id number] [place] [address] Aug, [facility] [place] [facility] [address] [id number] [place] [address] 29 Aug, 2010 [facility] [place] [facility] [address] [id number] [place] [address] 29 Aug, 2010 [facility] [place] [facility] [address] [id number] [place] [address] 29 Aug, 2010 [facility] [place] [facility] [address] [id number] [place] [address]46 27 Aug, 2010 [facility] [place] [facility] [address] [id number] [place] [address] 14 Aug, 2010 [facility] [place] [facility] [address] [id number] [place] [address] 08 Aug, 2010 [facility] [place] [facility] [address] [id number] [place] [address]141 08 Aug, 2010 [facility] [place] [facility] [address] [id number] [place] [address] 07 Aug, 2010 [facility] [place] [facility] [address] [id number] [place] [address] 06 Aug, 2010 [facility] [place] [facility] [address] [facility] [id number] [address] 06 Aug, 2010 [facility] [place] [facility] [address] [facility] [place] [id number] [address] Aug, [facility] [place] [facility] [address] [id number] [address] 30 Jul, 2010 [facility] [place] [facility] [address] [id number] [place] [address] 2546 30 Jul, 2010 [facility] [place] [facility] [address] [id number] [place] [address] 30 Jul, 2010 [facility] [place] [facility] [address] [facility] [place] [id number] [place] [address] 17 Jul, 2010 [facility] [place] [facility] [address] [id number] [place] [address] 08 Jul, 2010 [facility] [address] [id number] [place] [address] Jul, [facility] [place] [facility] [address] [id number] [place] [address] 24 Jun, 2010 [facility] [place] [facility] [address] [facility] [place] [id number] [place] [address] Jun, [facility] [place] [facility] [address] [id number] [place] [address] 8465 19 Jun, 2010 [facility] [place] [facility] [address] [facility] [place] [id number] [place] [address], [place] [address]- [address] Jun, [facility] [place] [facility] [address] [facility] [place] [id number] [place] [address] 16 Apr, 2010 [facility] [address] [facility] [place] [id number] [place] [address] Mar, [facility] [place] [facility] [address] [facility] [place] [id number] [place] [address] Feb, [facility] [place] [facility] [address] [id number] [address] January, [facility] [place] [facility] [address] [id number] [address] 15 Dec, 2009 [facility] [place] [facility] [address] [facility] [place] [id number] [place] [address] Nov, [facility] [place] [facility] [address] [facility] [place] [id number] [place] [address] Aug, [facility] [place] [facility] [address] [id number] [place] [address] Aug, [facility] [place] [facility] [address] [facility] [place] [id number] [place] [address] 07 Aug, 2009 [facility] [place] [facility] [address] [facility] [place] [id number] [place] [address] Jul, [facility] [place] [facility] [address]00565[address] [address] Jul, [facility] [address]65[address] [address] Jul, [facility] [address] [facility] [place] [id number] [place] [address] Jun, [facility] [address] [facility] [place] [id number] [place] [address] Jun, [facility] [address] [facility] [place] [id number] [place] [address] Jun, [facility] [id number] [place] [address] Jun, [facility] [id number] [address] Jun, [facility] [address]65[address] [address] Jun, [facility] [id number] [address] Apr, [facility] [address]65[address] [address] Apr, [facility] [address]65[address] [address] Feb, [facility] [address]65[address] [address] January, [facility] [address] [id number] [address] Dec, IMMUNIZATIONS No Known Immunizations SOCIAL HISTORY Never Assessed REASON FOR VISIT 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 PLAN OF CARE Activity Details Follow Up 3 Months Reason: VITAL SIGNS Height 67 in 2017-04-19 Weight 376.2 lbs 2017-04-19 Heart Rate 86 bpm 2017-04-19 Respiratory Rate 22 2017-04-19 BMI 58.91 kg/m2 2017-04-19 Blood pressure systolic 138 mmHg 2017-04-19 Blood pressure diastolic 90 mmHg 2017-04-19 MEDICATIONS Medication Instructions Dosage Frequency Start Date End Date Duration Status Aspirin 81 mg 1 tablet by Oral route 1 time per day Apr, Active Tamsulosin HCl 0.4 MG TAKE ONE CAPSULE BY MOUTH ONCE DAILY 30 MINUTES AFTER THE SAME MEAL EACH DAY 90 Active Zetia 10 MG TAKE ONE TABLET BY MOUTH DAILY 90 Active Potassium Chloride Kathi ER 20 MEQ TAKE TWO TABLETS BY MOUTH DAILY 90 Active NovoLog Flexpen 100 UNIT/ML INJECT 30 UNITS SUBCUTANEOUSLY WITH BREAKFAST, 30 UNITS WITH LUNCH AND 40 UNITS WITH EVENING MEAL 30 Active Ventolin HFA 108 (90 Base) MCG/ACT Inhalation every 4 hrs 2 puffs as needed 4h Dec, 30 days Active Gabapentin 300 MG Orally 3 times a day 2 capsules 8h Mar, Active Breo Ellipta Inhalation Once a day 1 puff 24h Active Ambien 10 mg Orally Once a day 1 tablet at bedtime 24h Nov, 30 days Active Losartan Potassium 100 MG TAKE ONE TABLET BY MOUTH ONCE DAILY (MUST HAVE APPOINTMENT FOR REFILL) Active Singulair 10 mg 1 Tablet by Oral route 1 time per day Nov, Active Vitamin D3 1,000 unit 2 capsule by Oral route 1 time per day Apr, Active Naproxen 500 MG TAKE ONE TABLET BY MOUTH EVERY 12 HOURS NEEDED FOR HEADACHE 30 Active Lantus 100 UNIT/ML Subcutaneous 2 times a day 70 units 12h 30 days Active Flomax 0.4 mg Orally Once a day 1 capsule 30 minutes after the same meal each day 24h Aug, 90 Active Metoprolol Succinate ER 50 mg Orally twice a day 1 tablet 12h 90 Active Trintellix 20 MG Orally Once a day 1 tablet 24h 30 days Active Imbruvica 140 MG Orally Once a day 3 capsules in the evening 24h Oct, Active Abilify 30 MG Orally Once a day 1 tablet 24h 30 days Active Furosemide 40 mg Orally twice a day 1 tablet 12h Mar, 05 days Active Atorvastatin Calcium 20 MG TAKE ONE TABLET BY MOUTH AT BEDTIME 90 Active Symbicort 80-4.5 MCG/ACT Inhalation Twice a day 2 puffs 12h 30 Active Nexium 40 MG TAKE ONE CAPSULE BY MOUTH ONCE DAILY 90 Active Clopidogrel Bisulfate 75 MG TAKE ONE TABLET BY MOUTH DAILY 90 Active Victoza 18 MG/3ML INJECT 1.8MG SUBCUTANEOUSLY ONCE DAILY 30 Active Voltaren 1 % Transdermal every 4-6 hours as needed 4grams to knee and hip Mar, Active Clonidine HCl 0.1 MG Orally 2 times a day 1 tablet 12h 30 Active Valium 5 MG Orally three times a day 1 tablet as needed 8h Oct, 30 days Active Percocet 10-325 MG Orally 4 times a day 1 tablet as needed 6h Mar, 28 days Active Fluticasone Propionate 50 MCG/ACT INSTILL ONE SPRAY IN EACH NOSTRIL DAILY 30 Active Zofran 4 MG Orally 3 times a day prn nausea and vomiting 1 tablet 5 Active Allopurinol 300 MG Orally Once a day 1 tablet 24h Mar, 90 days Active Seroquel 100 MG Orally Once a day 1 tablet 24h Jul, 30 days Active RESULTS No Results PROCEDURES Procedure Date Ordered Result Body Site [facility] VISIT ESTABLISHED PATIENT April 19, 2017 [facility] Visit needs to be added with another visit on the same day April 19, 2017 INSTRUCTIONS MEDICATIONS ADMINISTERED No Known Medications [...] 2009 Surgical History colonoscopy 2009 ([facility]), 2013 ([facility]) Surgical History heart cath: CAD w/ PTCA [...] to urinate 09/16/15 [facility] History hyperkalemia 10/2017 Hospitalization History fluid in lung
--- OUTSIDE RECORDS SUMMARY | 2018-08-08 12:41 | XMS REPORT ---
Author Author NOEMI WASHBURN Organization [facility] Address [address] [place] [address] Care Team Providers Care General Manager Name Role Phone NOEMI WASHBURN Unavailable PROBLEMS Type Condition ICD9-CM Code JNH05-JT Code Onset Dates Condition Status SNOMED Code Problem Chronic lymphocytic leukemia C91.10 Active 91989364 Problem Insomnia, unspecified type G47.00 Active 969729128 Problem Lymphocytosis D72.820 Active 11241546 Problem Anxiety F41.9 Active 70111352 Problem Eye exam abnormal R93.8 Active 119535341 Problem Morbid obesity E66.01 Active 047282019 Problem Diabetic polyneuropathy associated with type 2 diabetes mellitus E11.42 Active 17110534 Problem Essential hypertension I10 Active 00733954 Problem Falling R29.6 Active 947146869 Problem 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 Active 666550740 Problem Cough R05 Active 46671766 Problem Dysuria R30.0 Active 11085745 Problem Eustachian tube dysfunction, unspecified laterality H69.80 Active 63253234 Problem Bilateral primary osteoarthritis of knee M17.0 Active 476662272 Problem Polyneuropathy associated with underlying disease G63 Active 572954347 Problem Anemia of chronic illness D63.8 Active 646997043 Problem Retinal edema H35.81 Active 1564743 Problem DM neuro manif type II E11.49 Active 87138797 Problem Diabetes E11.9 Active 48675354 Problem Hypokalemia E87.6 Active 47439562 Problem Benign prostatic hyperplasia with lower urinary tract symptoms, unspecified morphology N40.1 Active 068603270 Problem Reactive airway disease J45.909 Active 189614977954 Problem Bipolar I disorder, most recent episode (or current) mixed, moderate F31.62 Active 61692387 Problem Chronic pain G89.29 Active 29350235 Problem Leukocytosis D72.829 Active 058358600 ALLERGIES No Information ENCOUNTERS Encounter Location Date Diagnosis [facility] [id number] [address] Apr, [facility] [address] [address] Mar, [facility] [address] [address] 6[address] Mar, [facility] [address] [address] Mar, [facility] [address] [address] Mar, Bipolar I disorder, most recent episode (or current) mixed, moderate F31.62 [facility] [address] [address] Feb, Bipolar I disorder, most recent episode (or current) mixed, moderate F31.62 [facility] [address] [address] Feb, Chronic pain G89.29 [facility] [address], [place] [address] Feb, Decubitus ulcer of right foot, stage 3 L89.893 and BMI 50.0- 59.9, adult Z68.43 [facility] [address] [address] 7[address] Feb, Bipolar I disorder, most recent episode (or current) mixed, moderate F31.62 [facility] [address] [address] Feb, [facility] [address] [address] January, [facility] [address] [address] 69[address] January, Chronic pain G89.29 [facility] [address], [place] [address] 5[address] January, Bipolar I disorder, most recent episode (or current) mixed, moderate F31.62 [facility] [address] [place] [id number] [place] [address] 29748- 2573 January, Bipolar I disorder, most recent episode (or current) mixed, moderate F31.62 [facility] [address] [id number] [place] [address] 60518- 4044 Dec, Bipolar I disorder, most recent episode (or current) mixed, moderate F31.62 and BMI 50.0-59.9, adult Z68.43 [facility] [address] [id number] [place] [address] 96695- 9324 Dec, Bipolar I disorder, most recent episode (or current) mixed, moderate F31.62 [facility] [address] [id number] [place] [address] 17276- 1405 Dec, Chronic pain G89.29 [facility] [address] [address]- 2399 Dec, DM neuro manif type II E11.49 ; Right flank pain R10.9 ; [facility] 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 Z79.891 ; Encounter for medication monitoring Z51.81 and BMI 50.0-59.9, adult Z68.43 [facility] [address] [id number] [place] [address] 07446- 9182 Dec, Bipolar I disorder, most recent episode (or current) mixed, moderate F31.62 [facility] [address] [id number] [place] [address] 19234- 1536 Nov, Bipolar I disorder, most recent episode (or current) mixed, moderate F31.62 [facility] [address] [id number] [place] [address] 98434- 0855 Nov, Chronic pain G89.29 [facility] [address] [id number] [place] [address] 26858- 7323 Nov, Bipolar I disorder, most recent episode (or current) mixed, moderate F31.62 [facility] [address] [id number] [place] [address] 50320- 0293 Nov, Hypokalemia E87.6 [facility] [address] [place] [address]522- 3016 Nov, Bipolar I disorder, most recent episode (or current) mixed, moderate F31.62 [facility] [address] 377395- 1686 Oct, Chronic pain G89.29 [facility] [address] 578274- 0582 Oct, BMI 50.0-59.9, adult Z68.43 and Bipolar I disorder, most recent episode (or current) mixed, moderate F31.62 [facility] [address] 25708- 2430 Oct, Bipolar I disorder, most recent episode (or current) mixed, moderate F31.62 [facility] [address] [id number] [place] [address] 48896- 7565 Oct, [facility] [address] 879263- 8274 Oct, Hypokalemia E87.6 [facility] [address] [id number] [place] [address] 46667- 8701 Oct, DM neuro manif type II E11.49 [facility] [address] [id number] [place] [address] 87413- 3868 Oct, Bipolar I disorder, most recent episode (or current) mixed, moderate F31.62 [facility] [address] 17950- 8639 Oct, Bipolar I disorder, most recent episode (or current) mixed, moderate F31.62 [facility] [address] [id number] [place] [address] 28024- 1494 14 Oct, 2017 Hyperkalemia E87.5 ; Falling R29.6 ; BMI 50.0-59.9, adult Z68.43 and Acute left ankle pain M25.572 [facility] [address] 19026- 1613 08 Oct, 2017 DM neuro manif type II E11.49 [facility] [address] 39252- 6541 Oct, [facility] [address] 55469- 5713 Sep, Chronic pain G89.29 [facility] [address] 39799- 4643 Sep, [facility] [address] 87615- 0339 Sep, Bilateral primary osteoarthritis of knee M17.0 [facility] [address] 85810- 3745 Sep, Generalized edema R60.1 [facility] [address] 62385- 0337 Sep, Bipolar I disorder, most recent episode (or current) mixed, moderate F31.62 [facility] [address] [id number] [place] [address] 36955- 8657 Sep, Hypoxia R09.02 ; Other hypervolemia E87.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 ; Anemia of chronic illness D63.8 and BMI 50.0- 59.9, adult Z68.43 [facility] [address] 48574- 6054 Sep, [facility] [address] 19688- 6614 Sep, Bipolar I disorder, most recent episode (or current) mixed, moderate F31.62 [facility] [address], [place] [address] 28 Aug, 2017 Chronic pain G89.29 [facility] [id number] [place] [address] 82604- 8711 Aug, Generalized edema R60.1 [facility] [id number] [place] [address] 68081- 5007 Aug, [facility] [id number] [place] [address] 447631- 0702 Aug, [facility] [id number] [place] [address] 89046- 7598 14 Aug, 2017 Bipolar I disorder, most recent episode (or current) mixed, moderate F31.62 [facility] [address] [id number] [place] [address] 32914- 9807 Aug, Bipolar I disorder, most recent episode (or current) mixed, moderate F31.62 [facility] [address] [id number] [place] [address] 04058- 2466 04 Aug, 2017 Chronic pain G89.29 [facility] [address] [id number] [place] [address] 83276- 8191 30 Jul, 2017 Bipolar I disorder, most recent episode (or current) mixed, moderate F31.62 [facility] [id number] [place] [address] 95819- 7838 Jul, Bipolar I disorder, most recent episode (or current) mixed, moderate F31.62 and BMI 60.0-69.9, adult Z68.44 [facility] [address] [place] [address] 04974- 6583 16 Jul, 2017 Bipolar I disorder, most recent episode (or current) mixed, moderate F31.62 [facility] [address], [place] [address]- 9176 06 Jul, 2017 Chronic pain G89.29 [facility] [id number] [place] [address] 75951- 5213 Jul, Bipolar I disorder, most recent episode (or current) mixed, moderate F31.62 [facility] [id number] [place] [address] 61925- 4051 Jun, Polyneuropathy associated with underlying disease G63 and Diabetes E11.9 [facility] [id number] [place] [address] 51371- 4248 Jun, Bipolar I disorder, most recent episode (or current) mixed, moderate F31.62 [facility] [address] [place] [address] 51491- 1239 Jun, Chronic pain G89.29 [facility] [address] [id number] [place] [address] 08588- 9864 May, Bipolar I disorder, most recent episode (or current) mixed, moderate F31.62 [facility] [id number] [place] [address] 75764- 3285 May, Bipolar I disorder, most recent episode (or current) mixed, moderate F31.62 [facility] [id number] [place] [address] 84600- 2818 20 May, 2017 Diabetic polyneuropathy associated with type 2 diabetes mellitus E11.42 [facility] [id number] [place] [address] 80835- 1140 18 May, 2017 Bipolar I disorder, most recent episode (or current) mixed, moderate F31.62 [facility] [address] [place] [address] 03964- 2414 13 May, 2017 Bipolar I disorder, most recent episode (or current) mixed, moderate F31.62 [facility] [id number] [place] [address] 23277- 2591 May, Chronic pain G89.29 [facility] [id number] [place] [address] 83419- 1395 Apr, Bipolar I disorder, most recent episode (or current) mixed, moderate F31.62 [facility] [address], [place] [address]- 4186 Apr, [facility] [id number] [place] [address] 21966- 2106 Apr, Chronic pain G89.29 and DM neuro manif type II E11.49 [facility] [id number] [place] [address] 17585- 4696 Apr, [facility] [id number] [place] [address] 64560- 7116 Apr, Bipolar I disorder, most recent episode (or current) mixed, moderate F31.62 [facility] [id number] [place] [address] 13336- 7403 Apr, Chronic pain G89.29 [facility] [id number] [place] [address] 16090- 8581 Apr, Iliotibial band syndrome, left M76.32 [facility] [id number] [place] [address] 81363- 2326 Apr, Bipolar I disorder, most recent episode (or current) mixed, moderate F31.62 [facility] [id number] [place] [address] 51520- 6193 Mar, Bipolar I disorder, most recent episode (or current) mixed, moderate F31.62 [facility] [id number] [place] [address] 05680- 6776 Mar, Bipolar I disorder, most recent episode (or current) mixed, moderate F31.62 [facility] [id number] [place] [address] 23083- 4195 Mar, [facility] [id number] [place] [address] 94124- 5623 Mar, Bipolar I disorder, most recent episode (or current) mixed, moderate F31.62 [facility] [id number] [place] [address] 32657- 1488 Mar, Chronic pain G89.29 [facility] [address], [place] [address]- 7644 Mar, Bipolar I disorder, most recent episode (or current) mixed, moderate F31.62 [facility] [address], [place] [address]- 6982 Mar, Bipolar I disorder, most recent episode (or current) mixed, moderate F31.62 [facility] [id number] [place] [address] 73308- 8266 Mar, Acute pain of left knee M25.562 ; Left hip pain M25.552 ; Generalized edema R60.1 and Tongue swelling R22.0 [facility] [id number] [place] [address] 19488- 3361 Mar, [facility] [id number] [place] [address] 94173- 3134 Feb, Chronic pain G89.29 [facility] [id number] [place] [address] 32688- 6637 Feb, Diabetes E11.9 [facility] [id number] [place] [address] 74186- 2194 January, Chronic pain G89.29 [facility] [id number] [place] [address] 93704- 6970 January, [facility] [id number] [place] [address] 40491- 3507 January, Bipolar I disorder, most recent episode (or current) mixed, moderate F31.62 [facility] [id number] [place] [address] 13141- 4030 Dec, Bipolar I disorder, most recent episode (or current) mixed, moderate F31.62 [facility] [address], [place] [address]- 2417 Dec, Chronic pain G89.29 [facility] [id number] [address]- 8634 Dec, Bipolar I disorder, most recent episode (or current) mixed, moderate F31.62 [facility] [id number] [place] [address] 42021- 0982 Dec, Diabetes E11.9 ; Essential hypertension I10 ; Chronic pain G89.29 and Morbid obesity E66.01 [facility] [id number] [place] [address] 90775- 7784 Dec, [facility] [id number] [place] [address] 35840- 7343 Dec, Bipolar I disorder, most recent episode (or current) mixed, moderate F31.62 [facility] [id number] [place] [address] 71027- 6326 Dec, Bipolar I disorder, most recent episode (or current) mixed, moderate F31.62 [facility] [address] [place] [id number] [place] [address] 69290- 0203 Nov, Chronic pain G89.29 [facility] [id number] [place] [address] 67345- 5435 Nov, Bipolar I disorder, most recent episode (or current) mixed, moderate F31.62 [facility] [address] [place] [id number] [place] [address] 16023- 7967 Nov, [facility] [id number] [place] [address] 92691- 1307 Nov, Bipolar I disorder, most recent episode (or current) mixed, moderate F31.62 [facility] [address] [id number] [place] [address] 19477- 3704 Nov, Bipolar I disorder, most recent episode (or current) mixed, moderate F31.62 [facility] [address] [place] [address] 10869- 7648 Nov, [facility] [id number] [place] [address] 64684- 3441 Nov, [facility] [address], [place] [address]- 3814 Nov, [facility] [id number] [place] [address] 48861- 9789 Oct, Chronic pain G89.29 [facility] [address] [place] [address] 79503- 7017 Oct, Bipolar I disorder, most recent episode (or current) mixed, moderate F31.62 [facility] [address] [place] [address] 08492- 8323 Oct, [facility] [id number] [place] [address] 67582- 7308 Oct, Chronic pain G89.29 ; Diabetes E11.9 ; Anxiety F41.9 and 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 [facility] [address] [id number] [place] [address] 26429- 0233 Oct, [facility] [address] [place] [address] 30813- 8128 Oct, Diabetes E11.9 [facility] [address] [place] [address] 63908- 8571 Oct, Bipolar I disorder, most recent episode (or current) mixed, moderate F31.62 [facility] [address], [place] [address]- 7180 Sep, Chronic pain G89.29 [facility] [address], [place] [address]- 9101 Sep, Chronic pain G89.29 [facility] [id number] [place] [address] 79753- 6197 Aug, Chronic pain G89.29 [facility] [address] [place] [address] 93556- 9938 Jul, [facility] [id number] [place] [address] 95261- 8831 Jul, Diabetes E11.9 [facility] [address] [id number] [place] [address] 04905- 2528 Jul, Chronic pain G89.29 [facility] [address] [place] [address] 02248- 2358 Jul, Bipolar I disorder, most recent episode (or current) mixed, moderate F31.62 [facility] [address] [id number] [place] [address] 60463- 1675 Jun, Bipolar I disorder, most recent episode (or current) mixed, moderate F31.62 [facility] [address] [place] [id number] [place] [address] 48875- 6866 Jun, [facility] [address] [place] [id number] [place] [address] 68965- 2437 Jun, Bipolar I disorder, most recent episode (or current) mixed, moderate F31.62 [facility] [address] [place] [id number] [place] [address] 73123- 8282 30 May, 2016 Insomnia, unspecified type G47.00 [facility] [address] [place] [id number] [place] [address] 49757- 1975 May, Bipolar I disorder, most recent episode (or current) mixed, moderate F31.62 [facility] [address] [place] [id number] [place] [address] 40772- 8909 14 May, 2016 [facility] [address] [place] [id number] [place] [address] 44047- 5036 08 May, 2016 Bipolar I disorder, most recent episode (or current) mixed, moderate F31.62 [facility] [address] [place] [id number] [place] [address] 35447- 2576 06 May, 2016 Diabetes E11.9 and Essential hypertension I10 [facility] [address] [id number] [place] [address] 02947- 7123 Apr, Chronic pain G89.29 [facility] [address], [place] [address]- 2105 Apr, Bipolar I disorder, most recent episode (or current) mixed, moderate F31.62 [facility] [address] [place] [address] 25945- 9630 Apr, [facility] [address] [place] [id number] [place] [address] 06910- 7991 Apr, [facility] [address] [place] [id number] [place] [address] 60442- 7792 Mar, Chronic pain G89.29 ; Headache, unspecified headache type R51 ; Neuropathy G62.9 ; Pain of right hip joint M25.551 and Essential hypertension I10 [facility] [address] [place] [address] 54582- 3260 Mar, Chronic pain G89.29 [facility] [address] [place] [id number] [place] [address] 35344- 7230 Mar, Bipolar I disorder, most recent episode (or current) mixed, moderate F31.62 [facility] [address] [place] [id number] [place] [address] 73961- 4823 Feb, Bipolar I disorder, most recent episode (or current) mixed, moderate F31.62 and Insomnia, unspecified type G47.00 [facility] [address] [place] [address] 97570- 4869 Feb, Chronic pain G89.29 [facility] [address] [place] [id number] [place] [address] 72761- 3217 Feb, Bipolar I disorder, most recent episode (or current) mixed, moderate F31.62 [facility] [address] [place] [id number] [place] [address] 98710- 0602 January, Bipolar I disorder, most recent episode (or current) mixed, moderate F31.62 [facility] [address] [address] [id number] [place] [address] 99947- 3049 January, Chronic pain G89.29 [facility] [id number] [place] [address] 49136- 5645 January, Chronic pain G89.29 and Essential hypertension I10 [facility] [id number] [place] [address] 55228- 7288 January, Bipolar I disorder, most recent episode (or current) mixed, moderate F31.62 [facility] [address] 87426- 3723 Dec, [facility] [address] 86681- 2108 Dec, [facility] [address] 34498- 9178 Dec, [facility] [address] 30946- 8775 Dec, [facility] [address] 19896- 2445 Nov, Reactive airway disease J45.909 [facility] [address] 95362- 9884 Nov, [facility] [id number] [place] [address] 85408- 6029 Nov, [facility] [id number] [place] [address] 66520- 4492 Nov, [facility] [id number] [place] [address] 88205- 9603 Nov, [facility] [address] 14009- 4615 Nov, Onychomycosis B35.1 ; Hammertoe M20.40 ; Alva or callus L84 and DM neuro manif type II E11.49 [facility] [id number] [place] [address] 62250- 0838 15 Nov, 2015 Chronic pain G89.29 ; Leukocytosis D72.829 and Diabetes E11.9 [facility] [id number] [place] [address] 43694- 4871 Nov, [facility] [address] [place] [address] [id number] [place] [address] 74503- 7087 Oct, Bronchitis J40 [facility] [address] [address] [id number] [place] [address] 67968- 5755 Oct, [facility] [address] 75261- 9084 Oct, [facility] [address] 60667- 7251 Oct, Mastoiditis, unspecified laterality H70.90 and Type 2 diabetes mellitus with complication E11.8 [facility] [id number] [place] [address] 30842- 7147 Sep, [facility] [address] [id number] [place] [address] 45133- 7253 Sep, Dysuria R30.0 ; Cough R05 ; Benign prostatic hyperplasia with lower urinary tract symptoms, unspecified morphology N40.1 ; Hypokalemia E87.6 and Eustachian tube dysfunction, unspecified laterality H69.80 [facility] [id number] [place] [address] 83505- 1578 Sep, Moderate mixed bipolar I disorder F31.62 [facility] [address] [id number] [place] [address] 38624- 0322 Sep, Hypokalemia E87.6 [facility] [id number] [place] [address] 45069- 1958 Sep, [place] [address] [id number] [place] [address] 47355- 2655 Sep, Upper respiratory tract infection, unspecified type J06.9 [place] [id number] [place] [address] 65551- 2987 Aug, [facility] [address] [address] 0248 Aug, Dysuria R30.0 [facility] [address], [place] [address]- 2338 Aug, [facility] [address], [place] [address]- 4592 Jul, [facility] [id number] [place] [address] 777723- 7154 Jul, [facility] [address], [place] [address]- 4789 Jul, [facility] [id number] [place] [address] 630824- 8410 Jul, [facility] [id number] [place] [address] 06165- 7163 Jun, [facility] [id number] [place] [address] 29004- 2834 Jun, [facility] [id number] [place] [address] 16563- 3046 Jun, [facility] [address], [place] [address]- 3160 May, [facility] [address], [place] [address]- 8087 May, Bipolar I disorder, most recent episode (or current) mixed, moderate 296.62 [facility] [address], [place] [address]- 9842 16 May, 2015 [facility] [address] 5763 02 May, 2015 Bipolar I disorder, most recent episode (or current) mixed, moderate 296.62 and Major depressive disorder, recurrent episode, severe, specified as with psychotic behavior 296.34 [facility] [address], [place] [address]- 9467 May, Bipolar I disorder, most recent episode (or current) mixed, moderate 296.62 [facility] [id number] [place] [address] 087942- 7401 May, [facility] [id number] [place] [address] 38530- 8009 Apr, [facility] [id number] [place] [address] 00789- 2133 Apr, [facility] [id number] [place] [address] 43464- 4699 Apr, Unspecified disorder of kidney and ureter 593.9 and Diabetes mellitus type 2, uncontrolled 250.02 [facility] [id number] [place] [address] 20631- 9076 Apr, [facility] [id number] [place] [address] 91430- 2647 Apr, [facility] [id number] [place] [address] 92603- 2519 Apr, [facility] [id number] [place] [address] 85818- 5491 Apr, [facility] [id number], [place] [address]- 6440 Apr, Diabetes mellitus type II, uncontrolled 250.02 [facility] [address], [place] [address]- 5552 Apr, [facility] [id number] [place] [address] 44410- 2328 Mar, [facility] [id number] [place] [address] 21685- 7376 Mar, [facility] [address], [place] [address]- 0544 Mar, [facility] [id number] [place] [address] 91220- 1830 Mar, Major depressive disorder, recurrent episode, severe, specified as with psychotic behavior 296.34 and Bipolar I disorder, most recent episode (or current) mixed, moderate 296.62 [facility] [id number] [place] [address] 40845- 2365 Mar, Diabetes 250.00 ; Anuria 788.5 ; Nausea and vomiting 787.01 and Diarrhea 787.91 [facility] [id number] [place] [address] 45084- 7409 Mar, Diabetes 250.00 [facility] [id number] [place] [address] 29533- 6437 Mar, [facility] [id number] [place] [address] 68447- 8335 Mar, Diabetes 250.00 [facility] [id number] [place] [address] 84783- 0538 Mar, [facility] [id number] [place] [address] 72460- 7364 Mar, [facility] [id number] [place] [address] 84698- 9938 Mar, [facility] [id number] [place] [address] 62047- 3688 Mar, [facility] [id number] [place] [address] 81066- 9712 Mar, Bipolar I disorder, most recent episode (or current) mixed, moderate 296.62 and Major depressive disorder, recurrent episode, severe, specified as with psychotic behavior 296.34 [facility] [id number] [place] [address] 55384- 2042 Mar, Magnesium deficiency 275.2 ; Hypokalemia 276.8 ; Nausea & vomiting 787.01 and Diabetes mellitus type 2, uncontrolled 250.02 [facility] [address], [place] [address]- 1922 Feb, [facility] [id number] [place] [address] 21670- 9724 Feb, Bipolar I disorder, most recent episode (or current) mixed, moderate 296.62 [facility] [id number] [place] [address] 85026- 3390 Feb, Nausea and vomiting 787.01 ; Left elbow pain 719.42 ; Anuria 788.5 and Diabetes 250.00 [facility] [address] 61048- 7893 Feb, [facility] [address] 61400- 4461 Feb, Hypopotassemia 276.8 and Hypokalemia 276.8 [place] [id number] [place] [address] 97372- 5106 Feb, Hypopotassemia 276.8 and Hypokalemia 276.8 [place] [id number] [place] [address] 75448- 3801 Feb, Seborrheic keratoses 702.19 [place] [id number] [place] [address] 62305- 4353 Feb, Hypopotassemia 276.8 and Low magnesium levels 275.2 [place] [id number] [place] [address] 60682- 8913 January, [facility] [id number] [place] [address] 66651- 0692 January, [facility] [id number] [place] [address] 91636- 7871 January, [facility] [id number] [place] [address] 99867- 3968 January, Scalp lesion 709.9 [facility] [id number] [place] [address] 44814- 3344 January, [facility] [address] 59089- 6611 30 Dec, 2014 Tear of medial cartilage or meniscus of knee, current 836.0 and 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 [facility] [address] [id number] [place] [address]- 6726 Dec, [facility] [address] [id number], [place] [address]- 8356 Dec, [facility] [address] [facility] [id number], [place] [address] 2546 Dec, Squamous cell carcinoma, 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 [facility] [address] [id number] [place] [address]- 0526 14 Dec, 2014 [facility] [id number] [address]- 3101 Dec, [facility] [id number], [place] [address]- 4732 Nov, [facility] [address] [facility] [id number], [place] [address]- 2113 Nov, [facility] [address] [facility] [place] [id number], [place] [address]- 1543 Nov, [facility] [address] [facility] [place] [id number], [place] [address]- 3539 Nov, [facility] [id number], [place] [address]- 4113 Nov, [facility] [address] [facility] [id number]- 5700 Nov, [facility] [address] [facility] [place] [id number] 8926 Nov, [facility] [address] [facility] [id number]- 1766 Nov, [facility] [address] [facility] [id number][place] 4356 Nov, [facility] [address] [id number] [place] [address]- 5842 Nov, [facility] [place] [facility] [address] [id number] [place] [address]- 1547 Nov, [facility] [place] [facility] [address] [id number] [place] [address]- 3392 Nov, [facility] [place] [facility] [address] [id number] [place] [address]- 0152 Oct, 2014 [facility] [place] [facility] [address] [id number] [place] [address]- 7396 Oct, 2014 [facility] [place] [facility] [address] [id number] [place] [address]- 3935 Oct, 2014 [facility] [place] [facility] [address] [facility] [place] [id number] [place] [address]- 0901 Oct, 2014 [facility] [place] [facility] [address] [facility] [place] [id number] [place] [address]- 6873 Oct, 2014 [facility] [place] [facility] [address] [facility] [place] [id number] [place] [address]- 7209 Oct, [facility] [place] [facility] [address] [facility] [place] [id number] [place] [address]- 2435 Oct, [facility] [place] [facility] [address] [facility] [place] [id number] [place] [address]- 1469 Oct, [facility] [place] [facility] [address] [facility] [place] [id number], [place] [address]- 4006 Oct, [facility] [place] [facility] [address] [facility] [place] [id number] [place] [address]- 6995 Sep, [facility] [place] [facility] [address] [id number] [place] [address]- 6908 Sep, [facility] [place] [facility] [address] [facility] [place] [id number] [place] [address]- 8226 Sep, [facility] [place] [facility] [address] [facility] [place] [id number], [place] [address]- 4298 Sep, [facility] [place] [facility] [address] [id number] [place] [address]- 2153 Sep, [facility] [place] [facility] [address] [id number] [place] [address]- 4155 Sep, [facility] [place] [facility] [address] [id number] [place] [address]- 9581 Sep, [facility] [place] [facility] [address] [id number] [place] [address]- 3307 Sep, [facility] [place] [facility] [address] [id number] [place] [address]- 4183 Sep, [facility] [place] [facility] [address] [id number] [place] [address]- 1051 Sep, [facility] [place] [facility] [address] [id number] [place] [address]- 8676 Sep, [facility] [place] [facility] [address] [id number] [place] [address]- 4839 Sep, [facility] [place] [facility] [address] [id number] [place] [address]- 0011 Sep, [facility] [place] [facility] [address] [id number] [place] [address]- 7052 Sep, [facility] [place] [facility] [address] [id number] [place] [address]- 8525 Sep, [facility] [place] [facility] [address] [id number] [place] [address]- 8950 Sep, [facility] [place] [facility] [address] [id number] [place] [address]- 2787 Aug, [facility] [place] [facility] [address] [id number] [place] [address]- 4516 Aug, [facility] [place] [facility] [address] [id number] [place] [address]- 8537 Aug, [facility] [place] [facility] [address] [id number] [place] [address]- 3027 Aug, [facility] [address] [id number] [place] [address]- 7750 Aug, [facility] [address] [id number] [place] [address]- 0999 Aug, [facility] [address] [id number] [place] [address]- 8396 Aug, [facility] [address] [id number] [place] [address]- 4770 Aug, [facility] [address] [id number] [place] [address]- 4726 Aug, [facility] [address] [id number] [place] [address]- 8180 Aug, [facility] [address] [id number] [place] [address]- 0973 Aug, [facility] [address] [place] [id number] Aug, [facility] [address] [id number] [place] [address]- 0141 Aug, [facility] [address] [id number] [place] [address]- 8812 Aug, [facility] [address] [id number] [place] [address]- 2975 Aug, [facility] [address] [id number] [place] [address]- 2885 Aug, [facility] [address] [id number] [place] [address]- 5032 Aug, [facility] [address] [id number] [place] [address]- 2792 Aug, [facility] [address] [id number] [place] [address]- 9561 Aug, [facility] [place] [facility] [address] [id number] [place] [address]- 5179 Aug, [facility] [place] [facility] [address] [id number] [place] [address]- 1144 Aug, [facility] [place] [facility] [address] [id number] [place] [address]- 2512 Aug, [facility] [place] [facility] [address] [id number] [place] 7811 Aug, [facility] [place] [facility] [address] [id number] [place] [address]- 4892 Aug, [facility] [place] [facility] [address] [id number] [place] [address]- 3719 Aug, [facility] [place] [facility] [address] [id number] [place] [address]- 5756 Aug, [facility] [place] [facility] [address] [id number] [place] [address]- 7649 Aug, [facility] [place] [facility] [address] [id number] [place] [address]- 7775 Aug, [facility] [place] [facility] [address] [id number] [place] [address]- 6378 Aug, [facility] [place] [facility] [address] [id number] [place] [address]- 5557 Aug, [facility] [place] [facility] [address] [id number] [place] [address]- 1201 Jul, [facility] [place] [facility] [address] [id number] [place] [address]- 1214 Jul, [facility] [place] [facility] [address] [id number] [place] [address]- 3997 Jul, [facility] [place] [facility] [address] [id number] [place] 0178 Jul, [facility] [place] [facility] [address] [id number] [place] [address]- 8290 Jul, [facility] [place] [facility] [address] [id number] [place] [address]- 0699 Jul, [facility] [place] [facility] [address] [id number] [place] 6274 Jul, [facility] [place] [facility] [address] [id number] [place] 2605 Jul, [facility] [place] [facility] [address] [id number] [place] [address]- 9387 Jul, [facility] [place] [facility] [address] [id number] [place] [address]- 2214 Jul, [facility] [place] [facility] [address] [id number] [place] [address]- 4147 Jun, [facility] [place] [facility] [address] [id number] [place] [address]- 9696 Jun, [facility] [place] [facility] [address] [id number], [place] [address]- 6859 Jun, [facility] [place] [facility] [address] [id number] [place] [address]- 5400 Jun, [facility] [place] [facility] [address] [id number], [place] [address]- 6504 Jun, [facility] [place] [facility] [address] [id number], [place] [address]- 5756 Jun, [facility] [place] [facility] [address] [id number], [place] [address]- 8403 Jun, [facility] [place] [facility] [address] [id number] [place] [address]- 0948 Jun, [facility] [place] [facility] [address] [id number][place]- 9069 Jun, [facility] [place] [facility] [address] [id number][place] 2587 Jun, [facility] [place] [facility] [address] [id number] [place] [address] 2547 29 Sep, 2013 [facility] [place] [facility] [address] [id number] [place] [address] 2546 29 Sep, 2013 [facility] [place] [facility] [address] [id number] [place] [address] 2546 26 Sep, 2013 [facility] [place] [facility] [address] [id number] [place] [address] 2546 26 Sep, 2013 [facility] [place] [facility] [address] [id number] [place] [address] 2546 17 Sep, 2013 [facility] [place] [facility] [address] [id number] [place] [address]- 0097 17 Sep, 2013 [facility] [place] [facility] [address] [id number] [place] [address]- 2543 15 Sep, 2013 [facility] [place] [facility] [address] [id number] [place] [address] 2544 15 Sep, 2013 [facility] [place] [facility] [address] [id number] [place] [address]- 2543 15 Sep, 2013 [facility] [place] [facility] [address] [id number] [place] [address] 2541 15 Sep, 2013 [facility] [place] [facility] [address] [id number] [place] [address] 2545 10 Sep, 2013 [facility] [place] [facility] [address] [id number] [place] [address] 2546 10 Sep, 2013 [facility] [place] [facility] [address] [id number] [place] [address] 2541 09 Sep, 2013 [facility] [place] [facility] [address] [id number] [place] [address] 2546 09 Sep, 2013 [facility] [place] [facility] [address] [id number] [place] [address] 2545 04 Sep, 2013 [facility] [place] [facility] [address] [id number] [place] [address] 2701 May, [facility] [place] [facility] [address] [id number] [place] [address]- 5653 Apr, [facility] [place] [facility] [address] [id number] [place] [address]- 0643 Apr, [facility] [place] [facility] [address] [id number] [place] [address]- 1651 Apr, [facility] [place] [facility] [address] [id number] [place] [address]- 5704 Apr, [facility] [place] [facility] [address] [id number] [place] [address]- 1715 Apr, [facility] [place] [facility] [address] [id number] [place] [address]- 5906 Apr, [facility] [place] [facility] [address] [id number] [place] [address]- 0053 Apr, [facility] [place] [facility] [address] [id number] [place] [address]- 0745 Apr, [facility] [place] [facility] [address] [id number] [place] [address]- 9508 Apr, [facility] [place] [facility] [address] [id number] [place] [address]- 0806 Apr, [facility] [place] [facility] [address] [id number] [place] [address]- 4054 Apr, [facility] [place] [facility] [address] [id number] [place] [address]- 1669 Apr, [facility] [place] [facility] [address] [id number] [place] [address]- 7035 Apr, [facility] [place] [facility] [address] [id number] [place] [address]- 8087 Apr, [facility] [place] [facility] [address] [id number] [place] [address]- 8708 Apr, [facility] [place] [facility] [address] [id number] [place] [address]- 3013 Mar, 2013 [facility] [place] [facility] [address] [id number] [place] [address]- 2703 Mar, 2013 [facility] [place] [facility] [address] [id number] [place] [address]- 8091 Mar, 2013 [facility] [place] [facility] [address] [id number] [place] [address]- 4327 Mar, 2013 [facility] [place] [facility] [address] [id number] [place] [address]- 8368 Mar, 2013 [facility] [place] [facility] [address] [id number] [place] [address]- 7978 Mar, 2013 [facility] [place] [facility] [address] [id number] [place] [address]- 4108 Mar, 2013 [facility] [place] [facility] [address] [id number] [place] [address]- 0281 Mar, 2013 [facility] [place] [facility] [address] [id number] [place] [address] Mar, 2013 [facility] [place] [facility] [address] [id number] [place] [address] Mar, 2013 [facility] [place] [facility] [address] [id number] [place] [address] Mar, 2013 [facility] [place] [facility] [address] [id number] [place] [address] Mar, 2013 [facility] [place] [facility] [address] [id number] [place] [address] Mar, 2013 [facility] [place] [facility] [address] [id number] [place] [address] Mar, 2013 [facility] [place] [facility] [address] [id number] [place] [address] Mar, 2013 [facility] [place] [facility] [address] [id number] [place] [address] Mar, 2013 [facility] [place] [facility] [address] [id number] [place] [address] Mar, [facility] [place] [facility] [address] [id number] [place] [address] Mar, [facility] [place] [facility] [address] [id number] [place] [address] Feb, [facility] [place] [facility] [address] [id number] [place] [address] Feb, [facility] [place] [facility] [address] [id number] [place] [address] Feb, [facility] [place] [facility] [address] [id number] [place] [address] Feb, [facility] [place] [facility] [address] [id number] [place] [address] Feb, [facility] [place] [facility] [address] [id number] [place] [address] Feb, [facility] [place] [facility] [address] [id number] [place] [address] Feb, [facility] [place] [facility] [address] [id number] [place] [address] Feb, [facility] [place] [facility] [address] [id number] [place] [address] Feb, [facility] [place] [facility] [address] [id number] [place] [address] Feb, [facility] [place] [facility] [address] [id number] [place] [address] Feb, [facility] [place] [facility] [address] [id number] [place] [address] Feb, [facility] [place] [facility] [address] [id number] [place] [address] Feb, [facility] [place] [facility] [address] [id number] [place] [address] Feb, [facility] [address] [id number] [place] [address] January, [facility] [place] [facility] [address] [id number] [place] [address] January, [facility] [place] [facility] [address] [id number] [place] [address] January, [facility] [place] [facility] [address] [id number] [place] [address] January, [facility] [place] [facility] [address] [id number] [place] [address] January, [facility] [place] [facility] [address] [id number] [place] [address] January, [facility] [place] [facility] [address] [id number] [place] [address] January, [facility] [place] [facility] [address] [id number] [place] [address] January, [facility] [place] [facility] [address] [id number] [place] [address] January, [facility] [place] [facility] [address] [id number] [place] [address] January, [facility] [place] [facility] [address] [id number] [place] [address] January, [facility] [place] [facility] [address] [id number] [place] [address] January, [facility] [place] [facility] [address] [id number] [place] [address] January, [facility] [place] [facility] [address] [id number] [place] [address] January, [facility] [place] [facility] [address] [id number] [place] [address]68 Dec, [facility] [place] [facility] [address] [id number] [place] [address] Dec, [facility] [place] [facility] [address] [id number] [place] [address] Dec, [facility] [place] [facility] [address] [id number] [place] [address] Dec, [facility] [place] [facility] [address] [id number] [place] [address] Dec, [facility] [place] [facility] [address] [id number] [place] [address] Dec, [facility] [place] [facility] [address] [id number] [place] [address] Dec, [facility] [place] [facility] [address] [id number] [place] [address] Dec, [facility] [place] [facility] [address] [id number] [place] [address] Dec, [facility] [place] [facility] [address] [id number] [place] [address] Dec, [facility] [place] [facility] [address] [id number] [place] [address] Nov, [facility] [place] [facility] [address] [id number] [place] [address] Nov, [facility] [place] [facility] [address] [id number] [place] [address] Nov, [facility] [place] [facility] [address] [id number] [place] [address] Nov, [facility] [place] [facility] [address] [id number] [place] [address] 2843 Nov, [facility] [place] [facility] [address] [id number] [place] [address]57 Nov, [facility] [place] [facility] [address] [id number] [place] [address] 9409 Nov, [facility] [place] [facility] [address] [id number] [place] [address]- 7892 Nov, [facility] [place] [facility] [address] [id number] [place] [address] 8152 Nov, [facility] [place] [facility] [address] [id number] [place] [address]- 3830 Nov, [facility] [place] [facility] [address] [id number] [place] [address] 3216 Oct, [facility] [place] [facility] [address] [id number] [place] [address] 1349 Oct, [facility] [place] [facility] [address] [id number] [place] [address] 8829 Oct, [facility] [place] [facility] [address] [id number] [place] [address]- 6087 Oct, [facility] [place] [facility] [address] [id number] [place] [address] 7300 Oct, [facility] [place] [facility] [address] [id number] [place] [address]- 3187 Oct, [facility] [place] [facility] [address] [id number] [place] [address]- 1670 Oct, [facility] [place] [facility] [address] [id number] [place] [address]- 6010 Oct, [facility] [place] [facility] [address] [id number] [place] [address]- 5394 Oct, [facility] [place] [facility] [address] [id number] [place] [address]- 6292 Oct, [facility] [place] [facility] [address] [id number] [place] [address]- 9679 Oct, [facility] [place] [facility] [address] [id number] [place] [address] 4352 Oct, [facility] [place] [facility] [address] [id number] [place] [address] 7803 Oct, [facility] [address] [id number] [place] [address]- 5077 Oct, [facility] [address] [id number] [place] [address]- 1826 Sep, [facility] [address] [id number] [place] [address]- 2068 Sep, [facility] [facility] [address] [id number] [place] [address]- 0227 Sep, [facility] [facility] [address] [id number] [place] [address]- 3394 Sep, [facility] [address] [id number] [place] [address]- 5313 Sep, [facility] [address] [id number] [place] [address]- 8881 Sep, [facility] [address] [id number] [place] [address]- 6883 Sep, [facility] [address] [id number] [place] [address]- 3528 Sep, [facility] [address] [id number] [place] [address]- 3222 Sep, [facility] [address] [id number] [place] [address]- 1281 Sep, [facility] [address] [id number] [place] [address]- 1132 Aug, [facility] [place] [facility] [address] [id number] [place] [address]- 5146 Aug, [facility] [address] [id number] [place] [address]- 5302 Jul, [facility] [address] [id number] [place] [address] Jul, [facility] [place] [facility] [address] [id number] [place] [address]- 1454 Jul, [facility] [place] [facility] [address] [id number] [place] [address]- 6304 Jul, [facility] [place] [facility] [address] [id number] [place] [address]- 3391 Jul, [facility] [place] [facility] [address] [id number] [place] [address]- 7700 Jul, [facility] [place] [facility] [address] [id number] [place] [address]- 4972 Jul, [facility] [place] [facility] [address] [id number] [place] [address]- 4846 Jul, [facility] [place] [facility] [address] [id number] [place] [address]- 6602 Jul, [facility] [place] [facility] [address] [id number], [place] [address] 8251 Jul, [facility] [place] [facility] [address] [id number], [place] [address]- 5106 Jul, [facility] [place] [facility] [address] [id number], [place] [address]- 9110 Jul, [facility] [place] [facility] [address] [id number], [place] [address]- 1743 Jul, [facility] [place] [facility] [address] [id number], [place] [address]- 7[address] Jul, [facility] [place] [facility] [address] [id number], [place] [address]- 7545 Jul, [facility] [place] [facility] [address] [id number], [place] [address]- 6591 Jul, [facility] [place] [facility] [address] [id number], [place] [address]- 4833 Jul, [facility] [place] [facility] [address] [id number], [place] [address] 2545 Jul, 2012 [facility] [place] [facility] [address] [id number] [place] [address]- 1700 Jul, 2012 [facility] [place] [facility] [address] [id number], [place] [address]- 3370 Jun, 2012 [facility] [place] [facility] [address] [id number] [place] [address]- 9514 Jun, 2012 [facility] [place] [facility] [address] [id number] [place] [address]- 8353 Jun, 2012 [facility] [place] [facility] [address] [id number] [place] [address]- 4492 Jun, 2012 [facility] [place] [facility] [address] [id number] [place] [address]- 0765 Jun, 2012 [facility] [place] [facility] [address] [id number], [place] [address]- 4278 Jun, 2012 [facility] [place] [facility] [address] [id number], [place] [address]- 3220 Jun, 2012 [facility] [place] [facility] [address] [facility] [place] [id number], [place] [address]- 6149 Jun, 2012 [facility] [place] [facility] [address] [facility] [place] [id number], [place] [address]- 7154 Jun, [facility] [place] [facility] [address] [id number], [place] [address]- 0915 Jun, 2012 [facility] [place] [facility] [address] [id number], [place] [address]- 5405 Jun, [facility] [place] [facility] [address] [id number], [place] [address]- 5209 May, 2012 [facility] [place] [facility] [address] [facility] [place] [id number], [place] [address]- 7558 25 May, 2012 [facility] [place] [facility] [address] [id number], [place] [address]- 0024 19 May, 2012 [facility] [place] [facility] [address] [id number] [place] [address]- 3139 17 May, 2012 [facility] [place] [facility] [address] [id number] [place] [address]- 0896 11 May, 2012 [facility] [place] [facility] [address] [id number] [place] [address] 2546 10 May, 2012 [facility] [place] [facility] [address] [id number] [place] [address] 2546 09 May, 2013 [facility] [place] [facility] [address] [id number] [place] [address] 254 05 May, 2013 [facility] [place] [facility] [address] [id number] [place] [address]- 2581 Apr, [facility] [place] [facility] [address] [id number] [place] [address]- 5429 Apr, [facility] [place] [facility] [address] [id number] [place] [address]- 6073 Apr, [facility] [place] [facility] [address] [id number] [place] [address]- 0393 Apr, [facility] [place] [facility] [address] [id number] [place] [address]- 9854 Apr, [facility] [place] [facility] [address] [id number] [place] [address]- 5864 Mar, [facility] [place] [facility] [address] [id number] [place] [address]- 9946 Mar, [facility] [place] [facility] [address] [id number] [place] [address]- 5172 Mar, [facility] [place] [facility] [address] [id number] [place] [address]- 4410 Mar, [facility] [place] [facility] [address] [id number] [place] [address]- 3539 Mar, [facility] [place] [facility] [address] [id number] [place] [address]- 3061 Mar, [facility] [address] [id number] [place] [address]- 0831 Mar, [facility] [place] [facility] [address] [id number] [place] [address]- 4023 Mar, [facility] [address] [id number] [place] [address]- 8331 Feb, [facility] [place] [facility] [address] [id number] [place] [address]- 2003 Feb, [facility] [address] [id number] [place] [address]- 3902 January, [facility] [address] [id number] [place] [address]- 4170 January, [facility] [address] [id number] [place] [address]- 2421 Dec, [facility] [place] [facility] [address] [id number] [place] [address]- 4883 Dec, [facility] [address] [id number] [place] [address]- 5156 Nov, [facility] [place] [facility] [address] [id number] [place] [address]- 3574 Nov, [facility] [place] [facility] [address] [id number], [place] [address]- 3300 Nov, [facility] [place] [facility] [address] [id number], [place] [address]- 5500 Nov, [facility] [place] [facility] [address] [id number] [place] [address]- 3067 Oct, [facility] [place] [facility] [address] [id number] [place] [address]- 7280 Oct, [facility] [place] [facility] [address] [id number] [place] [address]- 3355 Oct, [facility] [place] [facility] [address] [id number] [place] [address]- 3392 26 Oct, 2012 [facility] [address] [id number] [place] [address]- 9536 16 Oct, 2012 [facility] [address] [id number] [place] [address] 2546 14 Oct, 2012 [facility] [address] [id number] [place] [address] 2546 08 Oct, 2012 [facility] [address] [id number] [place] [address] 2541 07 Oct, 2012 [facility] [address] [id number] [place] [address] 2546 03 Oct, 2012 [facility] [address] [id number] [place] [address]- 2223 30 Sep, 2012 [facility] [address] [id number] [place] [address]- 6560 29 Sep, 2012 [facility] [address] [id number] [place] [address]- 9289 Sep, [facility] [address] [id number] [place] [address]- 9835 Sep, [facility] [address] [id number] [place] [address]- 8226 17 Sep, 2012 [facility] [address] [id number] [place] [address]- 8310 Sep, [facility] [address] [id number] [place] [address] 2548 09 Sep, 2012 [facility] [place] [facility] [address] [id number] [place] [address] 2545 08 Sep, 2012 [facility] [place] [facility] [address] [id number] [place] [address] 2547 31 Aug, 2012 [facility] [place] [facility] [address] [id number] [place] [address]- 6776 Aug, [facility] [place] [facility] [address] [id number] [place] [address]- 8733 Aug, [facility] [place] [facility] [address] [id number] [place]26 Aug, [facility] [place] [facility] [address] [facility] [place] [id number] [place] [address]105 Aug, [facility] [place] [facility] [address] [id number] [place] 9439 Aug, [facility] [place] [facility] [address] [id number] [place] [address]- 2454 Aug, [facility] [place] [facility] [address] [id number] [place] [address]- 4419 Aug, [facility] [place] [facility] [address] [id number] [place] [address]- 1984 Jul, [facility] [place] [facility] [address] [id number], [place] [address]- 1814 Jul, [facility] [place] [facility] [address] [id number], [place] [address]- 7012 Jul, [facility] [place] [facility] [address] [id number], [place] [address]- 7882 Jul, [facility] [place] [facility] [address] [id number], [place] [address]- 0335 Jul, [facility] [place] [facility] [address] [id number], [place] [address]- 2018 Jul, [facility] [place] [facility] [address] [id number], [place] [address]- 1127 Jun, [facility] [place] [facility] [address] [id number], [place] [address]- 4887 Jun, [facility] [place] [facility] [address] [facility] [place] [id number], [place] [address]- 2549 Jun, [facility] [place] [facility] [address] [id number] [place] [address]- 8750 23 Jun, 2012 [facility] [place] [facility] [address] [id number] [place] [address]- 5707 Jun, [facility] [place] [facility] [address] [id number] [place] [address]- 1356 Jun, [facility] [place] [facility] [address] [id number] [place] [address]- 1704 Jun, [facility] [place] [facility] [address] [id number] [place] [address]- 6467 Jun, [facility] [place] [facility] [address] [id number] [place] [address]- 1449 10 Jun, 2012 [facility] [place] [facility] [address] [id number] [place] [address]- 4286 26 May, 2012 [facility] [place] [facility] [address] [id number] [place] [address]- 1746 24 May, 2012 [facility] [place] [facility] [address] [id number] [place] [address]- 6139 18 May, 2012 [facility] [place] [facility] [address] [id number] [place] [address]- 3680 30 Apr, 2012 [facility] [place] [facility] [address] [id number] [place] [address]- 9623 29 Apr, 2012 [facility] [place] [facility] [address] [id number] [place] [address] 2540 Apr, [facility] [place] [facility] [address] [id number] [place] [address]- 4806 14 Apr, 2012 [facility] [place] [facility] [address] [id number] [place] [address]- 1332 Apr, [facility] [place] [facility] [address] [id number] [place] [address]- 4904 Apr, [facility] [place] [facility] [address] [id number] [place] [address]- 8563 Mar, [facility] [place] [facility] [address] [id number] [place] [address]- 0737 Mar, [facility] [place] [facility] [address] [id number] [place] [address]- 3088 Mar, [facility] [address] [id number] [place] [address]- 3164 Mar, [facility] [place] [facility] [address] [id number] [place] [address]- 8075 Feb, [facility] [address] [id number] [place] [address]- 3294 Feb, [facility] [address] [id number] [place] [address]- 1698 Feb, [facility] [address] [id number] [place] [address]- 6437 Feb, [facility] [address] [id number] [place] [address]- 8425 Feb, [facility] [address] [id number] [place] [address]- 7891 January, [facility] [address] [id number] [place] [address]- 5132 January, [facility] [address] [id number] [place] [address]- 2331 January, [facility] [place] [facility] [address] [id number] [place] [address]- 9337 January, [facility] [place] [facility] [address] [id number] [place] [address]- 0085 January, [facility] [place] [facility] [address] [id number] [place] [address]- 9026 January, [facility] [place] [facility] [address] [id number] [place] [address]- 7659 Dec, [facility] [place] [facility] [address] [id number], [place] [address]- 0239 24 Dec, 2011 [facility] [address] [id number] [place] [address]- 9934 17 Dec, 2011 [facility] [place] [facility] [address] [id number] [place] [address]- 3896 09 Dec, 2011 [facility] [place] [facility] [address] [facility] [place] [id number] [place] [address]- 5536 06 Dec, 2011 [facility] [place] [facility] [address] [id number] [place] [address]- 3628 27 Nov, 2011 [facility] [place] [facility] [address] [id number] [place] [address]- 9348 14 Nov, 2011 [facility] [place] [facility] [address] [id number] [place] [address]- 7016 Nov, [facility] [address] [id number] [place] [place] [address]- 3961 Nov, [facility] [place] [facility] [address] [id number] [place] [address]- 7561 29 Oct, 2011 [facility] [place] [facility] [address] [id number] [place] [address]- 8950 28 Oct, 2011 [facility] [place] [facility] [address] [facility] [place] [place] [id number] [place] [address]- 9380 24 Oct, 2011 [facility] [place] [facility] [address] [id number] [place] [address]- 6166 13 Oct, 2011 [facility] [place] [facility] [address] [id number] [place] [address]- 0072 08 Oct, 2011 [facility] [place] [facility] [address] [id number] [place] [address]- 1711 Sep, [facility] [place] [facility] [address] [id number] [place] [address]- 1109 30 Sep, 2011 [facility] [place] [facility] [address] [facility] [place] [id number], [place] [address]- 6520 Sep, [facility] [place] [facility] [address] [id number] [place] [address]- 2802 Sep, [facility] [place] [facility] [address] [id number] [place] [address]- 2736 Sep, [facility] [place] [facility] [address] [id number] [place] [address]- 1307 Sep, [facility] [place] [facility] [address] [id number] [place] [address]- 8177 Aug, [facility] [place] [facility] [address] [id number] [place] [address]- 8801 Aug, [facility] [place] [facility] [address] [id number] [place] [address]- 5955 Aug, [facility] [place] [facility] [address] [id number] [place] [address]- 4272 Jul, [facility] [place] [facility] [address] [id number] [place] [address]- 1864 Jul, [facility] [place] [facility] [address] [id number] [place] [address]- 4389 Jul, [facility] [place] [facility] [address] [id number] [place] [address]- 1803 Jul, [facility] [place] [facility] [address] [id number] [place] [address]- 2871 Jun, [facility] [place] [facility] [address] [id number] [place] [address]- 4982 Jun, [facility] [place] [facility] [address] [id number] [place] [address]- 2057 Jun, [facility] [place] [facility] [address] [id number] [place] [address]- 7705 Jun, [facility] [place] [facility] [address] [id number] [place] [address]- 8754 Jun, [facility] [place] [facility] [address] [id number] [place] [address] 10 Jun, 2011 [facility] [place] [facility] [address] [id number] [place] [address] 11 Mar, 2011 [facility] [place] [facility] [address] [id number] [place] [address] 18 Dec, 2010 [facility] [place] [facility] [address] [id number] [place] [address] 11 Dec, 2010 [facility] [place] [facility] [address] [id number] [place] [address] 18 Nov, 2010 [facility] [place] [facility] [address] [id number] [place] [address] 16 Nov, 2010 [facility] [place] [facility] [address] [id number] [place] [address] 10 Sep, 2010 [facility] [place] [facility] [address] [id number] [place] [address] 31 Aug, 2010 [facility] [place] [facility] [address] [id number] [place] [address] 29 Aug, 2010 [facility] [place] [facility] [address] [id number] [place] [address] 29 Aug, 2010 [facility] [place] [facility] [address] [id number] [place] [address] 29 Aug, 2010 [facility] [place] [facility] [address] [id number] [place] [address] 27 Aug, 2010 [facility] [place] [facility] [address] [id number] [place] [address]46 14 Aug, 2010 [facility] [place] [facility] [address] [id number] [place] [address]46 08 Aug, 2010 [facility] [place] [facility] [address] [id number] [place] [address] 08 Aug, 2010 [facility] [place] [facility] [address] [id number] [place] [address] 07 Aug, 2010 [facility] [place] [facility] [address] [id number] [place] [address] Aug, [facility] [facility] [address] [id number] [place] [address] Aug, [facility] [place] [facility] [address] [id number] [place] [address] 2546 Aug, [facility] [facility] [address] [id number] [place] [address] Jul, [facility] [place] [facility] [address] [id number] [place] [address] Jul, [facility] [facility] [address] [id number] [place] [address], [place] [address] Jul, [facility] [facility] [address] [id number] [place] [address] Jul, [facility] [facility] [address] [facility] [place] [id number] [place] [address] Jul, [facility] [facility] [address] [id number] [place] [address] Jul, [facility] [place] [facility] [address] [id number] [place] [address] 24 Jun, 2010 [facility] [facility] [address] [facility] [place] [id number] [place] [address] Jun, [facility] [place] [facility] [address] [id number] [place] [address] 25[address] Jun, [facility] [place] [facility] [address] [id number] [place] [address] Jun, [facility] [place] [facility] [address] [id number] [place] [address] 16 Apr, 2010 [facility] [place] [facility] [address] [id number] [place] [address] 2546 Mar, [facility] [place] [facility] [address] [id number] [place] [address] Feb, [facility] [place] [facility] [address] [id number] [place] [address] 11 Jan, 2010 [facility] [place] [facility] [address] [id number] [place] [address] 15 Dec, 2009 [facility] [place] [facility] [address] [id number] [place] [address] Nov, [facility] [place] [facility] [address] [id number] [place] [address] Aug, [facility] [facility] [address] [id number] [place] [address] Aug, [facility] [place] [facility] [address] [id number] [place] [address] Aug, [facility] [place] [facility] [address] [facility] [place] [id number] [place] [address] Jul, [facility] [place] [facility] [address] [id number], [place] [address] Jul, [facility] [place] [facility] [address] [facility] [place] [id number], [place] [address] Jul, [facility] [place] [facility] [address] [facility] [place] [id number], [place] [address] 30 Jun, 2009 [facility] [place] [facility] [address] [facility] [place] [id number], [place] [address] 29 Jun, 2009 [facility] [place] [facility] [address] [id number], [place] [address] Jun, [facility] [place] [facility] [address] [id number], [place] [address] Jun, [facility] [place] [facility] [address] [id number], [place] [address] Jun, [facility] [place] [facility] [address] [facility] [id number] [address] Jun, [facility] [place] [facility] [address] [id number], [place] [address] Apr, [facility] [address] [facility] [place] [id number] [place] [address] Apr, [facility] [address] [facility] [place] [id number], [place] [address] Feb, [facility] [address] [facility] [place] [id number], [place] [address] January, [facility] [address] [facility] [id number][place] [address] Dec, IMMUNIZATIONS No Known Immunizations SOCIAL HISTORY Never Assessed REASON FOR VISIT LANTUS note PLAN OF CARE VITAL SIGNS MEDICATIONS Medication Instructions Dosage Frequency Start Date End Date Duration Status Levemir 100 UNIT/ML Subcutaneous 2 times a day inject 100 units 12h 14 Oct Active RESULTS No Results PROCEDURES No Known [...] obesity Medical History skin cancer-basal cell R mandaen (removed) Medical History Arthritis Medical History degenerative [...] History resection of skin cancer from Right mandaen Surgical History Biopsy of Lung Bilateral/Left lung lymph node 09/2016 Surgical History Bone Marrow Biopsy Surgical History port in the right chest wall 12/2016 Hospitalization History [facility] low potassium, low magnesium, chest painina 01/2015 Hospitalization History inability to urinate 09/16/15 Hospitalization History [facility] Hospitalization History hyperkalemia 10/2017 Hospitalization History fluid in lung
--- OUTSIDE RECORDS SUMMARY | 2018-08-08 12:42 | XMS REPORT ---
Author Author NOEMI WASHBURN Organization [facility] Address [address] [place] [address] Care Team Providers Care Vegetable Loader Name Role Phone NOEMI WASHBURN Unavailable PROBLEMS Type Condition ICD9-CM Code APS62-YL Code Onset Dates Condition Status SNOMED Code Problem Chronic lymphocytic leukemia C91.10 Active 58918672 Problem Insomnia, unspecified type G47.00 Active 818606989 Problem Lymphocytosis D72.820 Active 18635377 Problem Anxiety F41.9 Active 05912980 Problem Eye exam abnormal R93.8 Active 889444055 Problem Morbid obesity E66.01 Active 186268589 Problem Diabetic polyneuropathy associated with type 2 diabetes mellitus E11.42 Active 47694507 Problem Essential hypertension I10 Active 73542982 Problem Falling R29.6 Active 219800037 Problem 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 Active 018561841 Problem Cough R05 Active 63419621 Problem Dysuria R30.0 Active 24034793 Problem Eustachian tube dysfunction, unspecified laterality H69.80 Active 84420225 Problem Bilateral primary osteoarthritis of knee M17.0 Active 421803626 Problem Polyneuropathy associated with underlying disease G63 Active 763661122 Problem Anemia of chronic illness D63.8 Active 320210077 Problem Retinal edema H35.81 Active 4293880 Problem DM neuro manif type II E11.49 Active 96285333 Problem Diabetes E11.9 Active 09408314 Problem Hypokalemia E87.6 Active 75167301 Problem Benign prostatic hyperplasia with lower urinary tract symptoms, unspecified morphology N40.1 Active 937569993 Problem Reactive airway disease J45.909 Active 493531155913 Problem Bipolar I disorder, most recent episode (or current) mixed, moderate F31.62 Active 61682697 Problem Chronic pain G89.29 Active 07612858 Problem Leukocytosis D72.829 Active 018638065 ALLERGIES No Information ENCOUNTERS Encounter Location Date Diagnosis [facility] [address] [address] Mar, [facility] [id number] [place] [address] 06504- 0637 Feb, [facility] [id number] [place] [address] 49499- 5604 January, Chronic pain G89.29 [facility] [id number] [place] [address] 33558- 0006 January, Bipolar I disorder, most recent episode (or current) mixed, moderate F31.62 [facility] [id number] [place] [address] 31839- 3122 January, Bipolar I disorder, most recent episode (or current) mixed, moderate F31.62 [facility] [id number] [place] [address] 14440- 1214 Dec, Bipolar I disorder, most recent episode (or current) mixed, moderate F31.62 and BMI 50.0-59.9, adult Z68.43 [facility] [place] [id number] [place] [address] 36431- 7482 Dec, Bipolar I disorder, most recent episode (or current) mixed, moderate F31.62 [place] [address] [place] [address] 01795- 4973 Dec, Chronic pain G89.29 [place] [address] [place] [address] 28303- 6302 Dec, DM neuro manif type II E11.49 ; Right flank pain R10.9 ; shelter 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 Z79.891 ; Encounter for medication monitoring Z51.81 and BMI 50.0-59.9, adult Z68.43 [place] [address] [place] [address] 61299- 2275 Dec, Bipolar I disorder, most recent episode (or current) mixed, moderate F31.62 [place] [id number] [place] [address] 23222- 5249 Nov, Bipolar I disorder, most recent episode (or current) mixed, moderate F31.62 [facility] [address] 79473- 4006 Nov, Chronic pain G89.29 [facility] [address] 01974- 7721 Nov, Bipolar I disorder, most recent episode (or current) mixed, moderate F31.62 [facility] [id number] [place] [address] 06310- 4937 Nov, Hypokalemia E87.6 [place] [address] 46560- 1930 Nov, Bipolar I disorder, most recent episode (or current) mixed, moderate F31.62 [place] [address] 49618- 3418 Oct, Chronic pain G89.29 [facility] [address] 65411- 4833 Oct, BMI 50.0-59.9, adult Z68.43 and Bipolar I disorder, most recent episode (or current) mixed, moderate F31.62 [facility] [id number] [place] [address] 30632- 6817 Oct, Bipolar I disorder, most recent episode (or current) mixed, moderate F31.62 [facility] [id number] [place] [address] 14544- 7639 Oct, [place] [address] 65715- 4721 Oct, Hypokalemia E87.6 [facility] [id number] [place] [address] 54847- 5923 Oct, DM neuro manif type II E11.49 [place] [address] [place] [address]- 1131 Oct, Bipolar I disorder, most recent episode (or current) mixed, moderate F31.62 [place] [address] 65860- 9628 Oct, Bipolar I disorder, most recent episode (or current) mixed, moderate F31.62 [place] [address] 42629- 5482 14 Oct, 2017 Hyperkalemia E87.5 ; Falling R29.6 ; BMI 50.0-59.9, adult Z68.43 and Acute left ankle pain M25.572 [place] [address] 45521- 0816 08 Oct, 2017 DM neuro manif type II E11.49 [place] [address] 60067- 4764 Oct, [place] [address] 42235- 2796 Sep, Chronic pain G89.29 [place] [address] 77670- 0762 Sep, [place] [address] 64659- 6015 Sep, Bilateral primary osteoarthritis of knee M17.0 [place] [address] 98974- 2105 Sep, Generalized edema R60.1 [place] [address] 13345- 9075 16 Sep, 2017 Bipolar I disorder, most recent episode (or current) mixed, moderate F31.62 [place] [address] 90282- 2025 15 Sep, 2017 Hypoxia R09.02 ; Other hypervolemia E87.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 ; Anemia of chronic illness D63.8 and BMI 50.0- 59.9, adult Z68.43 [place] [id number] [place] [address] 61421- 4250 Sep, [place] [id number] [place] [address] 79625- 3128 Sep, Bipolar I disorder, most recent episode (or current) mixed, moderate F31.62 [facility] [place] [id number] [place] [address] 09825- 3429 Aug, Chronic pain G89.29 [place] [address] 38734- 1748 Aug, Generalized edema R60.1 [place] [address] 54000- 5128 Aug, [place] [id number] [place] [address] 81811- 6163 Aug, [facility] [id number] [place] [address] 67039- 8204 Aug, Bipolar I disorder, most recent episode (or current) mixed, moderate F31.62 [facility] [place] [id number] [place] [address] 42097- 2886 Aug, Bipolar I disorder, most recent episode (or current) mixed, moderate F31.62 [facility] [place] [id number] [place] [address] 02681- 3547 Aug, Chronic pain G89.29 [facility] [id number] [place] [address] 50094- 9791 Jul, Bipolar I disorder, most recent episode (or current) mixed, moderate F31.62 [facility] [place] [id number] [place] [address] 55487- 3627 Jul, Bipolar I disorder, most recent episode (or current) mixed, moderate F31.62 and BMI 60.0-69.9, adult Z68.44 [facility] [id number] [place] [address] 63679- 7166 16 Jul, 2017 Bipolar I disorder, most recent episode (or current) mixed, moderate F31.62 [facility] [id number] [place] [address] 20267- 2224 Jul, Chronic pain G89.29 [facility] [id number] [place] [address] 75081- 3097 Jul, Bipolar I disorder, most recent episode (or current) mixed, moderate F31.62 [facility] [id number] [place] [address] 012619- 8574 Jun, Polyneuropathy associated with underlying disease G63 and Diabetes E11.9 [facility] [id number] [place] [address] 22717- 8006 Jun, Bipolar I disorder, most recent episode (or current) mixed, moderate F31.62 [facility] [id number] [place] [address] 82644- 3402 Jun, Chronic pain G89.29 [facility] [id number] [place] [address] 72165- 6664 May, Bipolar I disorder, most recent episode (or current) mixed, moderate F31.62 [facility] [address] [place] [address] 39240- 5550 May, Bipolar I disorder, most recent episode (or current) mixed, moderate F31.62 [place] [address] [place] [address] 00945- 7779 20 May, 2017 Diabetic polyneuropathy associated with type 2 diabetes mellitus E11.42 [facility] [address] [place] [address] 92713- 8930 18 May, 2017 Bipolar I disorder, most recent episode (or current) mixed, moderate F31.62 [facility] [id number] [place] [address] 57773- 5699 13 May, 2017 Bipolar I disorder, most recent episode (or current) mixed, moderate F31.62 [facility] [id number] [place] [address] 42432- 8121 12 May, 2017 Chronic pain G89.29 [facility] [id number] [place] [address] 21890- 3571 30 Apr, 2017 Bipolar I disorder, most recent episode (or current) mixed, moderate F31.62 [facility] [id number] [place] [address] 69132- 5565 Apr, [facility] [address] 320686- 2226 Apr, Chronic pain G89.29 and DM neuro manif type II E11.49 [facility] [address] 72130- 3974 Apr, [facility] [address] 642169- 5247 Apr, Bipolar I disorder, most recent episode (or current) mixed, moderate F31.62 [facility] [id number] [place] [address] 40204- 1584 14 Apr, 2017 Chronic pain G89.29 [facility] [id number] [place] [address] 13070- 3689 Apr, Iliotibial band syndrome, left M76.32 [facility] [id number] [place] [address] 43818- 3030 Apr, Bipolar I disorder, most recent episode (or current) mixed, moderate F31.62 [facility] [id number] [place] [address] 31773- 6698 Mar, Bipolar I disorder, most recent episode (or current) mixed, moderate F31.62 [facility] [id number] [place] [address] 25295- 0143 Mar, Bipolar I disorder, most recent episode (or current) mixed, moderate F31.62 [facility] [address], [place] [address]- 9062 Mar, [facility] [id number] [place] [address] 94033- 3576 Mar, Bipolar I disorder, most recent episode (or current) mixed, moderate F31.62 [facility] [id number] [place] [address] 18134- 5042 Mar, Chronic pain G89.29 [facility] [id number] [place] [address] 54671- 1280 Mar, Bipolar I disorder, most recent episode (or current) mixed, moderate F31.62 [facility] [address] [place] [address] 90991- 1332 Mar, Bipolar I disorder, most recent episode (or current) mixed, moderate F31.62 [facility] [id number] [place] [address] 99486- 7124 Mar, Acute pain of left knee M25.562 ; Left hip pain M25.552 ; Generalized edema R60.1 and Tongue swelling R22.0 [place] [address] [place] [address] 74340- 4226 Mar, [facility] [address] [place] [address] 59502- 8029 Feb, Chronic pain G89.29 [facility] [id number] [place] [address] 75007- 1444 Feb, Diabetes E11.9 [facility] [id number] [place] [address] 57900- 7352 January, Chronic pain G89.29 [facility] [address] [place] [address] 95177- 2629 January, [facility] [id number] [place] [address] 55460- 9343 January, Bipolar I disorder, most recent episode (or current) mixed, moderate F31.62 [facility] [address] [place] [address] 79697- 8312 Dec, Bipolar I disorder, most recent episode (or current) mixed, moderate F31.62 [facility] [address] [place] [address] 62393- 6950 Dec, Chronic pain G89.29 [facility] [id number] [place] [address] 01261- 9674 Dec, Bipolar I disorder, most recent episode (or current) mixed, moderate F31.62 [facility] [id number] [place] [address] 94438- 3189 Dec, Diabetes E11.9 ; Essential hypertension I10 ; Chronic pain G89.29 and Morbid obesity E66.01 [facility] [place] [id number] [place] [address] 22616- 6956 Dec, [facility] [id number] [place] [address] 20451- 0269 Dec, Bipolar I disorder, most recent episode (or current) mixed, moderate F31.62 [facility] [id number] [place] [address] 19149- 4534 Dec, Bipolar I disorder, most recent episode (or current) mixed, moderate F31.62 [facility] [id number] [place] [address] 51653- 2682 Nov, Chronic pain G89.29 [facility] [id number] [place] [address] 95958- 6809 Nov, Bipolar I disorder, most recent episode (or current) mixed, moderate F31.62 [facility] [address] [place] [address] 09986- 1513 Nov, [facility] [id number] [place] [address] 08199- 3373 Nov, Bipolar I disorder, most recent episode (or current) mixed, moderate F31.62 [facility] [address], [place] [address]- 7280 Nov, Bipolar I disorder, most recent episode (or current) mixed, moderate F31.62 [facility] [address] [address]- 5347 Nov, [facility] [id number] [place] [address] 68867- 8728 Nov, [facility] [address] [place] [address] 27985- 7669 Nov, [facility] [id number] [place] [address] 74397- 5371 Oct, Chronic pain G89.29 [facility] [id number] [place] [address] 57405- 0807 Oct, Bipolar I disorder, most recent episode (or current) mixed, moderate F31.62 [facility] [address] [place] [address] 31362- 6818 Oct, [facility] [address] [place] [address] 54746- 5457 Oct, Chronic pain G89.29 ; Diabetes E11.9 ; Anxiety F41.9 and 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 [facility] [address], [place] [address]- 1174 Oct, [facility] [address] [address]- 2203 Oct, Diabetes E11.9 [facility] [address] [place] [address] 69649- 9648 Oct, Bipolar I disorder, most recent episode (or current) mixed, moderate F31.62 [facility] [address] [place] [address] 32318- 1836 Sep, Chronic pain G89.29 [facility] [address] [place] [address] 54168- 8602 Sep, Chronic pain G89.29 [facility] [address] [place] [address] 901804- 5723 Aug, Chronic pain G89.29 [facility] [id number] [place] [address] 05284- 0460 Jul, [facility] [id number] [place] [address] 69364- 6591 Jul, Diabetes E11.9 [facility] [id number] [place] [address] 01896- 4517 Jul, Chronic pain G89.29 [facility] [id number] [place] [address] 51615- 2025 Jul, Bipolar I disorder, most recent episode (or current) mixed, moderate F31.62 [facility] [id number] [place] [address] 07382- 7480 Jun, Bipolar I disorder, most recent episode (or current) mixed, moderate F31.62 [facility] [place] [id number] [place] [address] 19385- 9914 Jun, [facility] [id number] [place] [address] 60607- 2991 Jun, Bipolar I disorder, most recent episode (or current) mixed, moderate F31.62 [facility] [id number] [place] [address] 65408- 5608 30 May, 2016 Insomnia, unspecified type G47.00 [facility] [id number] [place] [address] 43467- 6752 May, Bipolar I disorder, most recent episode (or current) mixed, moderate F31.62 [facility] [id number] [place] [address] 78548- 1876 14 May, 2016 [place] [address] [place] [address] 80775- 1861 May, Bipolar I disorder, most recent episode (or current) mixed, moderate F31.62 [facility] [place] [id number] [place] [address] 03408- 6324 May, Diabetes E11.9 and Essential hypertension I10 [facility] [id number] [place] [address] 37516- 4112 Apr, Chronic pain G89.29 [facility] [place] [id number] [place] [address] 79541- 7855 Apr, Bipolar I disorder, most recent episode (or current) mixed, moderate F31.62 [facility] [id number] [place] [address] 97758- 6382 Apr, [facility] [id number] [place] [address] 77585- 2348 Apr, [place] [id number] [place] [address] 73918- 8991 Mar, Chronic pain G89.29 ; Headache, unspecified headache type R51 ; Neuropathy G62.9 ; Pain of right hip joint M25.551 and Essential hypertension I10 [place] [address] [place] [address] 14590- 9706 Mar, Chronic pain G89.29 [facility] [place] [id number] [place] [address] 04496- 8303 Mar, Bipolar I disorder, most recent episode (or current) mixed, moderate F31.62 [facility] [id number] [place] [address] 29170- 4406 Feb, Bipolar I disorder, most recent episode (or current) mixed, moderate F31.62 and Insomnia, unspecified type G47.00 [place] [address] [place] [address] 73411- 1953 Feb, Chronic pain G89.29 [place] [address], [place] [address]- 3065 Feb, Bipolar I disorder, most recent episode (or current) mixed, moderate F31.62 [facility] [id number] [place] [address] 92687- 4947 January, Bipolar I disorder, most recent episode (or current) mixed, moderate F31.62 [facility] [id number] [place] [address] 72691- 8971 January, Chronic pain G89.29 [facility] [id number] [place] [address] 15335- 5309 January, Chronic pain G89.29 and Essential hypertension I10 [facility] [id number] [place] [address] 45813- 8404 January, Bipolar I disorder, most recent episode (or current) mixed, moderate F31.62 [facility] [id number] [place] [address] 22442- 6859 Dec, [facility] [id number] [place] [address] 62960- 2121 Dec, [facility] [id number] [place] [address] 53308- 6818 Dec, [facility] [id number] [place] [address] 07241- 5130 Dec, [facility] [id number] [place] [address] 38966- 5899 Nov, Reactive airway disease J45.909 [facility] [id number] [place] [address] 74776- 8705 Nov, [facility] [id number] [place] [address] 10861- 3840 Nov, [facility] [id number] [place] [address] 18500- 3746 Nov, [facility] [address] [place] [address]- 3292 Nov, [place] [address] 73084- 9251 Nov, Onychomycosis B35.1 ; Hammertoe M20.40 ; Dwight or callus L84 and DM neuro manif type II E11.49 [place] [address] 69586- 1141 Nov, Chronic pain G89.29 ; Leukocytosis D72.829 and Diabetes E11.9 [place] [address] 39585- 2686 Nov, [place] [address] 71054- 9196 Oct, Bronchitis J40 [place] [address] 27450- 3362 Oct, [place] [address] 49974- 1431 Oct, [place] [address] 15464- 6422 Oct, Mastoiditis, unspecified laterality H70.90 and Type 2 diabetes mellitus with complication E11.8 [facility] [id number] [place] [address] 44859- 1352 Sep, [place] [address] 92445- 7311 Sep, Dysuria R30.0 ; Cough R05 ; Benign prostatic hyperplasia with lower urinary tract symptoms, unspecified morphology N40.1 ; Hypokalemia E87.6 and Eustachian tube dysfunction, unspecified laterality H69.80 [facility] [id number] [place] [address] 56730- 1010 Sep, Moderate mixed bipolar I disorder F31.62 [place] [address] 93342- 5884 Sep, Hypokalemia E87.6 [facility] [id number] [place] [address] 46361- 1464 Sep, [facility] [id number] [place] [address] 28630- 2809 Sep, Upper respiratory tract infection, unspecified type J06.9 [facility] [address] [address] Aug, [facility] [id number] [place] [address]- [address] Aug, Dysuria R30.0 [facility] [id number] [place] [address] 66124- 3669 Aug, [facility] [id number] [place] [address] 27977- [address] Jul, [facility] [id number] [place] [address] 46366- 7995 Jul, [facility] [id number] [place] [address] 51159- 3595 Jul, [facility] [id number] [place] [address] 17849- 7937 Jul, [facility] [id number] [place] [address] 11281- 1602 Jun, [facility] [id number] [place] [address] 65831- 1536 Jun, [facility] [id number] [place] [address] 64398- 9710 Jun, [facility] [id number] [place] [address] 8[address]10- 9321 May, [facility] [id number] [place] [address] 48129- 5715 May, Bipolar I disorder, most recent episode (or current) mixed, moderate 296.62 [facility] [id number] [place] [address] 68020- 2954 May, [facility] [id number] [place] [address] [address]- 7[address] May, Bipolar I disorder, most recent episode (or current) mixed, moderate 296.62 and Major depressive disorder, recurrent episode, severe, specified as with psychotic behavior 296.34 [facility] [id number] [place] [address] 49483- 1765 May, Bipolar I disorder, most recent episode (or current) mixed, moderate 296.62 [facility] [id number] [place] [address] 06225- 5516 May, [facility] [id number] [place] [address] 72600- 6613 Apr, [facility] [id number] [place] [address] 49416- 3205 Apr, [facility] [id number] [place] [address] 66078- 8395 Apr, Unspecified disorder of kidney and ureter 593.9 and Diabetes mellitus type 2, uncontrolled 250.02 [facility] [id number] [place] [address] 72004- 2385 Apr, [facility] [id number] [place] [address] 40078- 5297 Apr, [facility] [id number] [place] [address] 61018- 8980 Apr, [facility] [id number] [place] [address] 30070- 9303 Apr, [facility] [id number] [place] [address] 00588- 1687 Apr, Diabetes mellitus type II, uncontrolled 250.02 [facility] [id number] [place] [address] 27033- 9293 Apr, [facility] [address] [address]- 5308 Mar, [facility] [id number] [place] [address] 77598- 7301 Mar, [facility] [address] [address]- 3840 Mar, [facility] [id number] [place] [address] 259342- 5878 Mar, Major depressive disorder, recurrent episode, severe, specified as with psychotic behavior 296.34 and Bipolar I disorder, most recent episode (or current) mixed, moderate 296.62 [facility] [id number] [place] [address] 16026- 9415 Mar, Diabetes 250.00 ; Anuria 788.5 ; Nausea and vomiting 787.01 and Diarrhea 787.91 [facility] [id number] [address]- 0225 Mar, Diabetes 250.00 [facility] [address] [address]- 0441 Mar, [facility] [id number] [address]- 0179 Mar, Diabetes 250.00 [facility] [address] [address]- 5265 Mar, [facility] [address] [address]- 7132 Mar, [facility] [address] [address]- 7145 Mar, [facility] [address] 4671 Mar, [facility] [address] 4349 Mar, Bipolar I disorder, most recent episode (or current) mixed, moderate 296.62 and Major depressive disorder, recurrent episode, severe, specified as with psychotic behavior 296.34 [id number] [place] [address] 77399- 0860 Mar, Magnesium deficiency 275.2 ; Hypokalemia 276.8 ; Nausea & vomiting 787.01 and Diabetes mellitus type 2, uncontrolled 250.02 [id number] [place] [address] 16546- 5904 Feb, [place] [address]- 8678 Feb, Bipolar I disorder, most recent episode (or current) mixed, moderate 296.62 [id number] [place] [address] 30908- 1799 Feb, Nausea and vomiting 787.01 ; Left elbow pain 719.42 ; Anuria 788.5 and Diabetes 250.00 [id number] [place] [address] 01212- 0202 Feb, [id number] [place] [address] 38327- 7194 Feb, Hypopotassemia 276.8 and Hypokalemia 276.8 [id number] [place] [address] 93880- 8452 Feb, Hypopotassemia 276.8 and Hypokalemia 276.8 [place] [id number] [place] [address] 05285- 4191 Feb, Seborrheic keratoses 702.19 [id number] [place] [address] 96221- 7221 Feb, Hypopotassemia 276.8 and Low magnesium levels 275.2 [place] [id number] [place] [address] 85389- 3764 January, [id number] [place] [address] 88596- 8100 January, [facility] [address] [id number] [address]- 0720 January, [facility] [address] [facility] [id number], [place] [address]- 1451 January, Scalp lesion 709.9 [facility] [id number] [address]- 1800 January, [facility] [address] [facility] [id number] [place] [address] 72303- 6978 Dec, Tear of medial cartilage or meniscus of knee, current 836.0 and 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 [facility] [address] [facility] [id number] [place] [address] 60889- 2877 Dec, [facility] [id number] [place] [address] 70737- 5032 Dec, [facility] [id number] [place] [address] 13761- 1318 Dec, Squamous cell carcinoma, 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 [facility] [address], [place] [address]- 1227 Dec, [facility] [address] [address]- 1137 Dec, [facility] [address] [address]- 7842 Nov, [facility] [address] [facility] [id number], [place] [address]- 4741 Nov, [facility] [address] [facility] [id number], [place] [address]- 4367 Nov, [facility] [address] [facility] [id number] 9125 Nov, [facility] [address] [id number] [address]- 2796 Nov, [facility] [id number] [place] [address], [place] [address]- 4019 09 Nov, 2014 [facility] [place] [facility] [address] [id number] [place] [address]- 4852 Nov, 2014 [facility] [place] [facility] [address] [id number] [place] 9947 Nov, 2014 [facility] [place] [facility] [address] [facility] [id number] [place] [address]- 6122 Nov, 2014 [facility] [place] [facility] [address] [id number] [place] [address]- 8613 Nov, 2014 [facility] [place] [facility] [address] [id number] [place] [address]- 6290 Nov, 2014 [facility] [place] [facility] [address] [facility] [id number] [place] [address]- 4466 Nov, 2014 [facility] [place] [facility] [address] [facility] [id number] [place] [address]- 8993 Oct, 2014 [facility] [place] [facility] [address] [facility] [id number] [place] [address]- 1195 Oct, 2014 [facility] [place] [facility] [address] [facility] [id number] [place] [address]- 5236 Oct, 2014 [facility] [place] [facility] [address] [facility] [id number] [place] [address]- 9872 Oct, 2014 [facility] [place] [facility] [address] [facility] [id number] [place] [address]- 5037 Oct, 2014 [facility] [place] [facility] [address] [facility] [id number] [place] [address]- 6192 Oct, 2014 [facility] [place] [facility] [address] [facility] [id number] [place] [address]- 7874 Oct, 2014 [facility] [place] [facility] [address] [facility] [id number] [place] 1444 Oct, 2014 [facility] [place] [facility] [address] [facility] [id number] [place] [address]- 5192 Oct, [facility] [place] [facility] [address] [id number] [place] [address]- 3964 Sep, [facility] [place] [facility] [address] [id number] [place] [address]- 1001 Sep, [facility] [place] [facility] [address] [id number] [place] [address]- 7765 Sep, [facility] [place] [facility] [address] [id number] [place] [address]- 3837 Sep, [facility] [place] [facility] [address] [id number] [place] [address]- 5722 Sep, [facility] [place] [facility] [address] [id number] [place] [address]- 1386 Sep, [facility] [place] [facility] [address] [id number] [place] [address]- 1463 Sep, [facility] [place] [facility] [address] [id number] [place] [address]- 0705 Sep, [facility] [place] [facility] [address] [id number] [place] [address]- 4554 Sep, [facility] [place] [facility] [address] [id number], [place] [address]- 0469 Sep, [facility] [place] [facility] [address] [id number], [place] [address]- 9993 Sep, [facility] [place] [facility] [address] [id number], [place] [address]- 2801 Sep, [facility] [place] [facility] [address] [id number] [place] [address]- 1350 Sep, [facility] [place] [facility] [address] [id number], [place] [address]- 1574 Sep, [facility] [place] [facility] [address] [id number], [place] [address]- 9006 Sep, [facility] [place] [facility] [address] [id number] [place] [address]- 2327 Sep, [facility] [address] [id number] [place] [address]- 2229 Aug, [facility] [address] [id number] [place] [address]- 9039 Aug, [facility] [address] [id number] [place] [address]- 2650 Aug, [facility] [address] [id number] [place] [address]- 3961 Aug, [facility] [address] [id number] [place] [address]- 3694 Aug, [facility] [address] [id number] [place] [address]- 6205 Aug, [facility] [address] [id number] [place] [address]- 1165 Aug, [facility] [address] [id number] [place] [address]- 2549 Aug, [facility] [address] [id number] [place] [address]- 5364 Aug, [facility] [address] [id number] [place] [address]- 2695 Aug, [facility] [address] [id number] [place] [address]- 9752 Aug, [facility] [place] [id number] 10 Aug, 2014 [facility] [address] [id number] [place] [address]- 6267 Aug, [facility] [address] [id number] [place] [address]- 0722 Aug, [facility] [address] [id number] [place] [address]- 3061 Aug, [facility] [address] [id number] [place] [address]- 7607 10 Aug, 2014 [facility] [address] [id number] [place] [address]- 2149 Aug, [facility] [place] [facility] [address] [id number] [place] [address]- 2837 Aug, [facility] [address] [id number] [place] [address]- 2796 Aug, [facility] [place] [facility] [address] [id number] [place] [address]- 2647 Aug, [facility] [place] [facility] [address] [id number] [place] [address]- 9584 Aug, [facility] [place] [facility] [address] [id number] [place] [address]- 9687 Aug, [facility] [place] [facility] [address] [id number] [place] [address]- 1900 Aug, [facility] [place] [facility] [address] [id number] [place] [address]- 6795 Aug, [facility] [place] [facility] [address] [id number] [place] [address]- 6256 Aug, [facility] [place] [facility] [address] [id number] [place] [address]- 3080 Aug, [facility] [place] [facility] [address] [id number] [place] [address]- 1028 Aug, [facility] [place] [facility] [address] [id number] [place] [address]- 8841 Aug, [facility] [place] [facility] [address] [id number] [place] [address]- 1134 Aug, [facility] [place] [facility] [address] [id number] [place] [address]- 0420 Aug, [facility] [place] [facility] [address] [id number] [place] 6345 Jul, [facility] [place] [facility] [address] [id number] [place] [address]- 2147 Jul, [facility] [place] [facility] [address] [id number] [place] [address]- 2859 Jul, [facility] [place] [facility] [address] [id number] [place] [address]- 0187 Jul, [facility] [place] [facility] [address] [id number] [place] [address]- 8864 Jul, [facility] [place] [facility] [address] [id number] [place] [address]- 9465 Jul, [facility] [place] [facility] [address] [id number] [place] [address]- 9657 Jul, [facility] [place] [facility] [address] [id number] [place] [address]- 2231 Jul, [facility] [place] [facility] [address] [id number] [place] [address]- 3421 Jul, [facility] [place] [facility] [address] [id number] [place] [address]- 5431 Jul, [facility] [place] [facility] [address] [id number], [place] [address]- 3056 Jun, [facility] [place] [facility] [address] [id number], [place] [address]- 8121 Jun, [facility] [place] [facility] [address] [id number], [place] [address]- 0371 16 Jun, 2014 [facility] [place] [facility] [address] [id number] [place] [address]- 6239 16 Jun, 2014 [facility] [place] [facility] [address] [id number], [place] [address]- 8990 15 Jun, 2014 [facility] [place] [facility] [address] [id number], [place] [address]- 7280 15 Jun, 2014 [facility] [place] [facility] [address] [id number], [place] [address]- 0027 05 Jun, 2014 [facility] [place] [facility] [address] [id number] [place] [address]- 7667 Jun, [facility] [place] [facility] [address] [id number] [place] [address]- 4966 Jun, [facility] [place] [facility] [address] [facility] [id number] [place] [address]- 0110 Jun, [facility] [place] [facility] [address] [id number] [place] [address]- 1037 29 May, 2013 [facility] [place] [facility] [address] [id number] [place] [address]- 1066 29 May, 2013 [facility] [place] [facility] [address] [id number] [place] [address]- 9553 26 May, 2013 [facility] [place] [facility] [address] [id number] [place] [address]- 0994 26 May, 2013 [facility] [place] [facility] [address] [id number] [place] [address]- 254 17 May, 2013 [facility] [place] [facility] [address] [id number] [place] [address]- 8727 17 May, 2013 [facility] [place] [facility] [address] [facility] [id number] [place] [address]- 4891 15 May, 2013 [facility] [place] [facility] [address] [id number], [place] [address] 254 15 May, 2013 [facility] [place] [facility] [address] [id number], [place] [address]- 2546 15 Sep, 2013 [facility] [place] [facility] [address] [id number], [place] [address] 2543 15 May, 2013 [facility] [place] [facility] [address] [facility] [id number], [place] [address]- 2547 10 May, 2013 [facility] [place] [facility] [address] [facility] [id number], [place] [address]- 2547 10 May, 2013 [facility] [place] [facility] [address] [id number] [place] [address]- 7523 May, 2013 [facility] [place] [facility] [address] [id number] [place] [address]- 4432 May, [facility] [place] [facility] [address] [id number] [place] [address]- 3726 May, [facility] [place] [facility] [address] [id number] [place] [address]- 9398 May, [facility] [place] [facility] [address] [id number] [place] [address]- 7706 Apr, [facility] [place] [facility] [address] [id number] [place] [address]- 4829 Apr, [facility] [place] [facility] [address] [id number] [place] [address]- 9626 Apr, [facility] [place] [facility] [address] [id number] [place] [address]- 7197 Apr, [facility] [place] [facility] [address] [id number] [place] [address]- 1253 Apr, [facility] [place] [facility] [address] [id number] [place] [address]- 3393 Apr, [facility] [place] [facility] [address] [id number] [place] [address]- 3494 Apr, [facility] [place] [facility] [address] [id number] [place] [address]- 0586 Apr, [facility] [place] [facility] [address] [id number] [place] [address]- 5833 Apr, [facility] [place] [facility] [address] [id number] [place] [address]- 9118 Apr, [facility] [place] [facility] [address] [id number] [place] [address]- 7527 Apr, [facility] [place] [facility] [address] [id number] [place] [address]- 3010 Apr, [facility] [place] [facility] [address] [id number] [place] [address]- 6911 Apr, [facility] [place] [facility] [address] [id number] [place] [address]- 9246 Apr, [facility] [place] [facility] [address] [id number] [place] [address]- 1752 Apr, [facility] [place] [facility] [address] [id number] [place] [address]- 6863 Mar, [facility] [place] [facility] [address] [id number] [place] [address]- 2240 Mar, [facility] [place] [facility] [address] [id number] [place] [address]- 5474 Mar, [facility] [place] [facility] [address] [id number] [place] [address]- 1872 Mar, [facility] [place] [facility] [address] [id number] [place] [address]- 7292 Mar, [facility] [place] [facility] [address] [id number] [place] [address]- 4795 Mar, [facility] [place] [facility] [address] [id number] [place] [address]- 6284 Mar, [facility] [place] [facility] [address] [id number] [place] [address]- 7447 Mar, [facility] [place] [facility] [address] [id number] [place] [address]- 6745 Mar, [facility] [place] [facility] [address] [id number] [place] [address]- 5957 Mar, [facility] [place] [facility] [address] [id number] [place] [address]- 2545 Mar, [facility] [place] [facility] [address] [id number] [place] [address]- 6370 Mar, [facility] [place] [facility] [address] [id number] [place] [address]- 1738 Mar, 2013 [facility] [place] [facility] [address] [id number] [place] [address]- 9729 Mar, 2013 [facility] [place] [facility] [address] [id number] [place] [address]- 9823 Mar, 2013 [facility] [place] [facility] [address] [id number] [place] [address]- 0399 Mar, 2013 [facility] [place] [facility] [address] [id number] [place] [address]- 3931 Mar, 2013 [facility] [place] [facility] [address] [id number] [place] [address]- 2937 Mar, [facility] [place] [facility] [address] [id number] [place] [address]- 7653 Feb, [facility] [place] [facility] [address] [id number] [place] [address]- 0982 Feb, [facility] [place] [facility] [address] [id number] [place] [address]- 2963 Feb, [facility] [place] [facility] [address] [id number] [place] [address]- 4304 Feb, [facility] [place] [facility] [address] [id number] [place] [address]- 8514 Feb, [facility] [place] [facility] [address] [id number] [place] [address]- 5795 Feb, [facility] [place] [facility] [address] [id number] [place] [address]- 7844 Feb, [facility] [place] [facility] [address] [id number] [place] [address]- 6918 Feb, [facility] [place] [facility] [address] [id number] [place] [address]- 0116 Feb, [facility] [place] [facility] [address] [id number] [place] [address]- 9989 Feb, [facility] [place] [facility] [address] [id number] [place] [address]- 8247 Feb, [facility] [place] [facility] [address] [id number] [place] [address]- 6291 Feb, [facility] [place] [facility] [address] [id number] [place] [address] Feb, [facility] [place] [facility] [address] [id number] [place] [address] Feb, [facility] [place] [facility] [address] [id number] [place] [address] January, [facility] [place] [facility] [address] [id number] [place] [address] January, [facility] [place] [facility] [address] [id number] [place] [address] January, [facility] [place] [facility] [address] [id number] [place] [address] January, [facility] [place] [facility] [address] [id number] [place] [address] January, [facility] [place] [facility] [address] [id number] [place] [address] January, [facility] [place] [facility] [address] [id number] [place] [address] 164[address] January, [facility] [place] [facility] [address] [id number] [place] [address] January, [facility] [place] [facility] [address] [id number] [place] [address] January, [facility] [place] [facility] [address] [id number] [place] [address] January, [facility] [place] [facility] [address] [id number] [place] [address] January, [facility] [place] [facility] [address] [id number] [place] [address] 5765 January, [facility] [place] [facility] [address] [id number] [place] [address]- [address]163 January, [facility] [place] [facility] [address] [id number] [place] [address] 2715 January, [facility] [place] [facility] [address] [id number] [place] [address] Dec, [facility] [place] [facility] [address] [id number] [place] [address]- 9090 Dec, [facility] [place] [facility] [address] [id number] [place] [address]- [address] Dec, [facility] [place] [facility] [address] [id number] [place] [address]- [address] Dec, [facility] [place] [facility] [address] [id number] [place] [address]- [address] Dec, [facility] [place] [facility] [address] [id number] [place] [address] Dec, [facility] [place] [facility] [address] [id number] [place] [address]79 Dec, [facility] [place] [facility] [address] [id number] [place] [address] 8317 Dec, [facility] [place] [facility] [address] [id number] [place] [address] Dec, [facility] [place] [facility] [address] [id number] [place] [address] Dec, [facility] [place] [facility] [address] [id number] [place] [address] Nov, [facility] [place] [facility] [address] [id number] [place] [address] 9900 Nov, [facility] [place] [facility] [address] [id number] [place] [address]- [address] Nov, [facility] [place] [facility] [address] [id number] [place] [address]- [address] 10 Nov, 2013 [facility] [place] [facility] [address] [id number] [place] [address]- 84[address] Nov, [facility] [place] [facility] [address] [id number] [place] [address]- [address]40 Nov, [facility] [place] [facility] [address] [id number] [place] [address]- 2585 Nov, [facility] [place] [facility] [address] [id number] [place] [address]- [address] Nov, [facility] [place] [facility] [address] [id number] [place] [address]- 8764 Nov, [facility] [place] [facility] [address] [facility] [id number] [place] [address]- [address] Nov, [facility] [place] [facility] [address] [facility] [id number] [place] [address]- 8195 Oct, [facility] [place] [facility] [address] [id number] [place] [address]- 9[address] Oct, [facility] [place] [facility] [address] [facility] [id number] [place] [address]- 8842 Oct, [facility] [place] [facility] [address] [facility] [id number] [place] [address]199 Oct, [facility] [place] [facility] [address] [facility] [id number] [place] [address]- [address] Oct, [facility] [place] [facility] [address] [facility] [id number] [place] [address]- [address]267 Oct, [facility] [place] [facility] [address] [facility] [id number] [place] [address]- [address] 14 Oct, 2013 [facility] [place] [facility] [address] [facility] [id number] [place] [address]- [address]159 14 Oct, 2013 [facility] [place] [facility] [address] [facility] [id number] [place] [address]- 7162 Oct, [facility] [place] [facility] [address] [id number] [place] [address]- 7414 Oct, [facility] [place] [facility] [address] [id number] [place] [address] Oct, [facility] [place] [facility] [address] [id number] [place] [address]- 22[address] Oct, [facility] [place] [facility] [address] [id number] [place] [address]- [address] Oct, [facility] [place] [facility] [address] [id number] [place] [address]- [address] Oct, [facility] [place] [facility] [address] [id number] [place] [address]- [address] Sep, [facility] [place] [facility] [address] [id number] [place] [address]- [address] Sep, [facility] [place] [facility] [address] [id number] [place] [address]- [address] Sep, [facility] [place] [facility] [address] [id number] [place] [address]- [address] Sep, [facility] [facility] [address] [id number] [place] [address] Sep, [facility] [place] [facility] [address] [id number] [place] [address] 8085 Sep, [facility] [place] [facility] [address] [id number] [place] [address] 9201 Sep, [facility] [place] [facility] [address] [id number] [place] [address] 2856 Sep, [facility] [place] [address] [id number] [place] [address] 8146 Sep, [facility] [place] [address] [id number] [place] [address] 1030 Sep, [facility] [place] [facility] [address] [id number] [place] [address] 8280 Aug, [facility] [place] [address] [id number] [place] [address]- 4902 Aug, [facility] [address] [id number] [place] [address] 2016 Jul, [facility] [place] [address] [id number] [place] [address]- 0735 Jul, [facility] [address] [id number] [place] [address] 3563 Jul, [facility] [place] [address] [id number] [place] [address] Jul, [facility] [address] [id number] [place] [address] 1449 Jul, [facility] [place] [facility] [address] [id number] [place] [address]- 3079 Jul, [facility] [address] [id number] [place] [address]- 3872 Jul, [facility] [place] [address] [id number] [place] [address]- 5438 Jul, [facility] [address] [id number] [place] [address]- 2787 Jul, [facility] [address] [id number] [place] [address]- 2394 Jul, [facility] [address] [id number] [place] [address]- 3925 Jul, [facility] [address] [id number] [place] [address]- 0965 Jul, [facility] [address] [id number] [place] [address]- 1559 Jul, [facility] [address] [id number] [place] [address]- 8478 Jul, [facility] [address] [id number] [place] [address]- 9107 Jul, 2012 [facility] [address] [id number] [place] [address]- 2649 Jul, [facility] [address] [id number] [place] [address]- 8757 Jul, [facility] [address] [id number] [place] [address]- 2174 Jul, [facility] [address] [id number] [place] [address]- 6807 Jul, [facility] [address] [id number], [place] [address]408 Jun, 2012 [facility] [address] [id number], [place] [address] 8300 Jun, 2012 [facility] [address] [id number], [place] [address]- 9403 Jun, 2012 [facility] [address] [id number], [place] [address]- 1395 Jun, 2012 [facility] [address] [id number], [place] [address]- 8027 Jun, 2012 [facility] [address] [id number], [place] [address]- 9693 Jun, 2012 [facility] [address] [id number], [place] [address]- 0248 Jun, 2012 [facility] [address] [id number], [place] [address]- 6611 Jun, 2012 [facility] [address] [id number] [address] Jun, [facility] [address] [id number] [address] Jun, [facility] [address] [id number] [place] [address]- 5320 Jun, [facility] [address] [id number] [place] [address]- 3576 May, 2012 [facility] [address] [id number] [place] [address] 2546 May, [facility] [address] [id number] [place] [address]- 1753 19 May, 2012 [facility] [address] [id number] [place] [address] 2547 17 May, 2012 [facility] [address] [id number] [place] [address]- 4705 11 May, 2013 [facility] [address] [id number] [place] [address]- 3718 May, [facility] [address] [id number] [place] [address]- 6589 May, [facility] [address] [id number] [place] [address]- 4507 05 May, 2013 [facility] [address] [id number] [place] [address]- 7444 Apr, [facility] [address] [id number] [place] [address]- 3256 Apr, [facility] [address] [id number] [place] [address]- 2545 Apr, [facility] [address] [id number] [place] [address]- 2035 Apr, [facility] [address] [id number] [place] [address]- 9234 Apr, [facility] [address] [id number] [place] [address]- 0276 Mar, [facility] [address] [id number] [place] [address]- 5019 Mar, [facility] [address] [id number] [place] [address]- 2973 Mar, [facility] [address] [id number] [place] [address]- 9094 Mar, [facility] [address] [id number] [place] [address]- 9843 Mar, [facility] [address] [id number] [place] [address]- 4128 Mar, [facility] [address] [id number] [place] [address]- 3113 Mar, [facility] [address] [id number] [place] [address]- 9977 Mar, [facility] [address] [id number] [place] [address]- 7714 Feb, [facility] [address] [id number] [place] [address]- 5278 Feb, [facility] [address] [id number] [place] [address]- 6990 January, [facility] [address] [id number] [place] [address]- 1146 January, [facility] [address] [id number] [place] [address]- 1890 Dec, [facility] [address] [id number] [place] [address]- 8230 Dec, [facility] [address] [id number] [place] [address]- 0025 Nov, [facility] [address] [id number] [place] [address]- 7286 Nov, [facility] [address] [id number] [place] [address]- 8024 Nov, [facility] [address] [id number] [place] [address]- 4717 Nov, [facility] [address] [id number] [place] [address] 2546 Oct, [facility] [address] [id number] [place] [address] 2546 Oct, [facility] [address] [id number] [place] [address]- 9326 Oct, [facility] [address] [id number] [place] [address]- 8712 26 Oct, 2012 [facility] [address] [id number] [place] [address]- 7636 16 Oct, 2012 [facility] [address] [id number] [place] [address]- 6488 14 Oct, 2012 [facility] [address] [facility] [id number] [place] [address]- 2126 08 Oct, 2012 [facility] [address] [id number] [place] [address]- 9723 07 Oct, 2012 [facility] [address] [id number] [place] [address]- 8772 03 Oct, 2012 [facility] [address] [facility] [id number] [place] [address]- 8469 30 Sep, 2012 [facility] [address] [id number] [place] [address] 2543 29 Sep, 2012 [facility] [address] [id number] [place] [address]- 2547 Sep, [facility] [address] [id number] [place] [address]- 1573 Sep, [facility] [address] [id number] [place] [address] 2546 17 Sep, 2012 [facility] [address] [id number] [place] [address]- 2686 Sep, [facility] [address] [id number] [place] [address]- 3812 Sep, [facility] [address] [id number] [place] [address]- 3035 Sep, [facility] [address] [id number] [place] [address]- 3193 Aug, [facility] [address] [id number] [place] [address]- 5151 Aug, [facility] [address] [id number] [place] [address]- 0230 Aug, [facility] [address] [id number] [place] [address]- 8428 Aug, [facility] [address] [id number] [place] [address]- 7140 Aug, [facility] [address] [id number] [place] [address]- 3315 Aug, [facility] [address] [id number] [place] [address]- 8399 Aug, [facility] [address] [id number] [place] [address]- 5263 Aug, [facility] [address] [id number] [place] [address]- 4670 Jul, [facility] [address] [id number], [place] [address]- 4537 Jul, [facility] [address] [id number] [place] [address]- 7622 Jul, [facility] [address] [id number] [place] [address]- 9675 Jul, [facility] [address] [facility] [id number] [place] [address]- 5684 Jul, [facility] [address] [id number], [place] [address]- 3802 Jul, [facility] [address] [id number] [place] [address]- 4801 Jun, [facility] [address] [id number] [place] [address]- 1074 Jun, [facility] [address] [id number] [place] [address]- 5412 Jun, [facility] [address] [id number] [place] [address]- 2751 Jun, [facility] [address] [id number] [place] [address]- 9776 Jun, [facility] [address] [id number] [place] [address]- 7410 Jun, [facility] [address] [facility] [id number] [place] [address]- 6005 Jun, [facility] [address] [facility] [id number] [place] [address]- 9498 Jun, [facility] [address] [facility] [id number] [place] [address]- 7831 Jun, [facility] [address] [facility] [id number] [place] [address]- 8499 May, [facility] [address] [id number] [place] [address]- 8410 24 May, 2012 [facility] [address] [id number] [place] [address]- 7242 18 May, 2012 [facility] [address] [id number] [place] [address]- 4966 30 Apr, 2012 [facility] [address] [facility] [id number] [place] [address]- 6992 Apr, [facility] [address] [facility] [id number] [place] [address]- 7805 Apr, [facility] [address] [id number] [place] [address]- 2620 Apr, [facility] [address] [id number] [place] [address]- 1262 Apr, [facility] [address] [id number] [place] [address] 2546 Apr, [facility] [address] [id number] [place] [address]- 2318 Mar, [facility] [address] [id number] [place] [address]- 5949 Mar, [facility] [address] [id number] [place] [address]- 9883 Mar, [facility] [address] [id number] [place] [address]- 0421 Mar, [facility] [address] [id number] [place] [address]- 5726 Feb, [facility] [address] [id number] [place] [address]- 8364 Feb, [facility] [address] [id number] [place] [address]- 9970 Feb, [facility] [address] [id number] [place] [address]- 4314 Feb, [facility] [address] [id number] [place] [address]- 2440 Feb, [facility] [address] [id number] [place] [address]- 5445 January, [facility] [address] [id number] [place] [address]- 4626 January, [facility] [address] [id number] [place] [address]- 4016 January, [facility] [address] [id number] [place] [address]- 0094 January, [facility] [address] [id number] [place] [address]- 6290 January, [facility] [address] [id number] [place] [address]- 0067 January, [facility] [address] [id number] [place] [address]- 6031 Dec, [facility] [place] [facility] [address] [id number] [place] [address]- 0868 Dec, [facility] [place] [facility] [address] [id number] [place] [address]- 0596 Dec, [facility] [place] [facility] [address] [id number] [place] [address]- 8217 Dec, [facility] [place] [facility] [address] [facility] [id number] [place] [address]- 4416 Dec, [facility] [place] [facility] [address] [id number] [place] [address]- 1993 Nov, [facility] [facility] [address] [id number] [place] [address]- 0466 Nov, [facility] [address] [id number] [place] [address]- 3609 Nov, [facility] [place] [facility] [address] [id number] [place] [address]- 1706 Nov, [facility] [facility] [address] [id number], [place] [address]- 4390 Oct, [facility] [facility] [address] [id number] [place] [address]- 6979 Oct, [facility] [place] [facility] [address] [id number] [place] [address]- 4635 24 Oct, 2011 [facility] [facility] [address] [facility] [id number] [place] [address]- 6962 Oct, [facility] [place] [facility] [address] [id number] [place] [address]- 1336 Oct, [facility] [address] [id number] [place] [address]- 2037 Sep, [facility] [place] [facility] [address] [id number] [place] [address]- 8860 Sep, [facility] [address] [id number] [place] [address]- 9407 Sep, [facility] [place] [facility] [address] [id number] [place] [address]- 1025 Sep, [facility] [address] [id number] [place] [address]- 6512 Sep, [facility] [address] [facility] [id number] [place] [address]- 3156 Sep, [facility] [address] [facility] [id number] [place] [address]- 3049 Aug, [facility] [address] [id number] [place] [address]- 0564 Aug, [facility] [address] [facility] [id number] [place] [address]- 3700 Aug, [facility] [address] [facility] [id number] [place] [address]- 0069 Jul, [facility] [place] [facility] [address] [id number] [place] [address]- 4948 Jul, [facility] [place] [facility] [address] [id number] [place] [address]- 4886 Jul, [facility] [place] [facility] [address] [id number] [place] [address]- 6899 Jul, [facility] [place] [facility] [address] [facility] [id number] [place] [address]- 8212 Jun, [facility] [place] [facility] [address] [id number] [place] [address]- 8989 Jun, [facility] [place] [facility] [address] [id number] [place] [address]- 3504 18 Jun, 2011 [facility] [place] [facility] [address] [id number] [place] [address]- 1070 10 Jun, 2011 [facility] [place] [facility] [address] [id number] [place] [address]- 4011 10 Jun, 2011 [facility] [place] [facility] [address] [id number] [place] [address]- 0160 10 Jun, 2011 [facility] [place] [facility] [address] [id number] [place] [address]- 2448 11 Mar, 2011 [facility] [place] [facility] [address] [id number] [place] [address]- 1455 18 Dec, 2010 [facility] [place] [facility] [address] [id number] [place] [address]- 1190 11 Dec, 2010 [facility] [place] [facility] [address] [id number] [place] [address]- 3481 18 Nov, 2010 [facility] [place] [facility] [address] [id number] [place] [address]- 7091 16 Nov, 2010 [facility] [place] [facility] [address] [id number], [place] [address]- 5633 Sep, [facility] [place] [facility] [address] [id number] [place] [address]- 9061 31 Aug, 2010 [facility] [place] [facility] [address] [id number], [place] [address]- 6517 29 Aug, 2010 [facility] [place] [facility] [address] [id number] [place] [address]- 9949 Aug, [facility] [place] [facility] [address] [id number] [place] [address]- 1720 29 Aug, 2010 [facility] [place] [facility] [address] [id number] [place] [address]- 5591 27 Aug, 2010 [facility] [place] [facility] [address] [id number], [place] [address]- 9564 14 Aug, 2010 [facility] [place] [facility] [address] [id number] [place] [address]- 8706 08 Aug, 2010 [facility] [place] [facility] [address] [facility] [id number], [place] [address]- 6646 08 Aug, 2010 [facility] [place] [facility] [address] [facility] [id number] [place] [address]- 6876 07 Aug, 2010 [facility] [place] [facility] [address] [facility] [id number], [place] [address]- 4219 06 Aug, 2010 [facility] [place] [facility] [address] [facility] [id number] [place] [address], [place] [address]- 9345 Aug, [facility] [place] [facility] [address] [facility] [id number], [place] [address]- 2147 Aug, [facility] [id number] [place] [address]- 1946 Jul, [facility] [place] [facility] [address] [facility] [id number], [place] [address]- 7079 Jul, [facility] [place] [facility] [address] [id number], [place] [address]- 5796 30 Jul, 2010 [facility] [place] [facility] [address] [id number], [place] [address]- 7300 Jul, [facility] [place] [facility] [address] [facility] [id number], [place] [address]- 8358 Jul, [facility] [place] [facility] [address] [facility] [id number], [place] [address]- 5127 Jul, [facility] [place] [facility] [address] [facility] [id number], [place] [address]- 6788 Jun, [facility] [place] [facility] [address] [facility] [id number], [place] [address]- 6849 Jun, [facility] [place] [facility] [address] [facility] [id number], [place] [address]- 5793 Jun, [facility] [place] [facility] [address] [id number] [place] [address]- 5634 13 Jun, 2010 [facility] [place] [facility] [address] [id number] [place] [address]- 5816 16 Apr, 2010 [facility] [place] [facility] [address] [id number] [place] [address] 20 Mar, 2010 [facility] [place] [facility] [address] [id number] [place] [address] 17 Feb, 2010 [facility] [place] [facility] [address] [id number] [place] [address] January, [facility] [place] [facility] [address] [id number] [place] [address] 15 Dec, 2009 [facility] [place] [facility] [address] [id number] [place] [address] Nov, [facility] [place] [facility] [address] [id number] [place] [address] 31 Aug, 2009 [facility] [place] [facility] [address] [id number] [place] [address] 23 Aug, 2009 [facility] [place] [facility] [address] [id number] [place] [address] Aug, [facility] [place] [facility] [address] [facility] [id number] [place] [address] 12 Jul, 2009 [facility] [place] [facility] [address] [id number] [place] [address] Jul, [facility] [place] [facility] [address] [id number] [place] [address] 07 Jul, 2009 [facility] [place] [facility] [address] [id number] [place] [address] 30 Jun, 2009 [facility] [place] [facility] [address] [id number] [place] [address] 29 Jun, 2009 [facility] [place] [facility] [address] [id number] [place] [address] Jun, [facility] [address] [id number] [address] Jun, [facility] [id number] [address] Jun, [facility] [address] [id number] [address] Jun, [facility] [id number] [address] Apr, [facility] [id number] [address] Apr, [facility] [address] [address] Feb, [facility] [id number] [address] January, [facility] [id number] [address] Dec, IMMUNIZATIONS No Known Immunizations SOCIAL HISTORY Never Assessed REASON FOR VISIT Controlled Med Refill 08/01/2017 PLAN OF CARE VITAL SIGNS MEDICATIONS Medication Instructions Dosage Frequency Start Date End Date Duration Status Percocet 10-325 MG Orally 4 times a day 1 tablet as needed 6h Jul, 28 days Active RESULTS No Results PROCEDURES [...] obesity Medical History skin cancer-basal cell R jainism (removed) Medical History Arthritis Medical History degenerative [...] History resection of skin cancer from Right jainism Surgical History Biopsy of Lung Bilateral/Left lung lymph node 09/2016 Surgical History Bone Marrow Biopsy Surgical History port in the right chest wall 12/2016 Hospitalization History [facility] low potassium, low magnesium, chest painina 01/2015 Hospitalization History inability to urinate 09/16/15 Hospitalization History [facility] early 1999' Hospitalization History hyperkalemia 10/2017 Hospitalization History fluid in lung
--- OUTSIDE RECORDS SUMMARY | 2018-08-08 12:44 | XMS REPORT ---
Author Author ROSELINE LUIS Organization [facility] Address [address] [place] [address] Care Team Providers Care [employer] Hcm Consultant Name Role Phone ROSELINE LUIS Unavailable PROBLEMS Type Condition ICD9-CM Code RZA41-PI Code Onset Dates Condition Status SNOMED Code Problem Chronic lymphocytic leukemia C91.10 Active 79722337 Problem Insomnia, unspecified type G47.00 Active 126021317 Problem Lymphocytosis D72.820 Active 67527796 Problem Anxiety F41.9 Active 50903686 Problem Eye exam abnormal R93.8 Active 869813283 Problem Morbid obesity E66.01 Active 329768286 Problem Diabetic polyneuropathy associated with type 2 diabetes mellitus E11.42 Active 54385376 Problem Essential hypertension I10 Active 33258256 Problem Falling R29.6 Active 590973598 Problem 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 Active 895922468 Problem Cough R05 Active 40694437 Problem Dysuria R30.0 Active 45218834 Problem Eustachian tube dysfunction, unspecified laterality H69.80 Active 71614604 Problem Bilateral primary osteoarthritis of knee M17.0 Active 430479250 Problem Polyneuropathy associated with underlying disease G63 Active 188800360 Problem Anemia of chronic illness D63.8 Active 471649943 Problem Retinal edema H35.81 Active 0250989 Problem DM neuro manif type II E11.49 Active 10860620 Problem Diabetes E11.9 Active 34074254 Problem Hypokalemia E87.6 Active 03809503 Problem Benign prostatic hyperplasia with lower urinary tract symptoms, unspecified morphology N40.1 Active 343088719 Problem Reactive airway disease J45.909 Active 905149899170 Problem Bipolar I disorder, most recent episode (or current) mixed, moderate F31.62 Active 63228074 Problem Chronic pain G89.29 Active 16333973 Problem Leukocytosis D72.829 Active 215521282 ALLERGIES No Information ENCOUNTERS Encounter Location Date Diagnosis [facility] [id number] [address] Dec, [facility] [id number] [place] [address] 65804- 7459 Dec, [facility] [id number] [place] [address] 44962- 3891 Dec, [facility] [id number] [place] [address] 52719- 5925 Dec, Bipolar I disorder, most recent episode (or current) mixed, moderate F31.62 [facility] [id number] [place] [address] 50657- 6785 Nov, Bipolar I disorder, most recent episode (or current) mixed, moderate F31.62 [facility] [id number] [place] [address] 05200- 9654 Nov, Chronic pain G89.29 [facility] [id number] [place] [address] 59170- 7332 Nov, Bipolar I disorder, most recent episode (or current) mixed, moderate F31.62 [facility] [id number] [place] [address] 61730- 0297 Nov, Hypokalemia E87.6 [facility] [id number] [place] [address] 67043- 4874 Nov, Bipolar I disorder, most recent episode (or current) mixed, moderate F31.62 [facility] [id number] [place] [address] 74881- 5814 Oct, Chronic pain G89.29 [facility] [id number] [place] [address] 49705- 0034 Oct, BMI 50.0-59.9, adult Z68.43 and Bipolar I disorder, most recent episode (or current) mixed, moderate F31.62 [facility] [id number] [place] [address] 67395- 8305 Oct, Bipolar I disorder, most recent episode (or current) mixed, moderate F31.62 [facility] [id number] [place] [address] 22867- 8830 Oct, [facility] [id number] [place] [address] 32408- 3676 Oct, Hypokalemia E87.6 [facility] [address] 14609- 4336 Oct, DM neuro manif type II E11.49 [facility] [id number] [place] [address] 70658- 9875 Oct, Bipolar I disorder, most recent episode (or current) mixed, moderate F31.62 [facility] [facility] [id number] [place] [address] 66742- 1947 Oct, Bipolar I disorder, most recent episode (or current) mixed, moderate F31.62 [facility] [id number] [place] [address] 11675- 0120 14 Oct, 2017 Hyperkalemia E87.5 ; Falling R29.6 ; BMI 50.0-59.9, adult Z68.43 and Acute left ankle pain M25.572 [facility] [id number] [place] [address] 97887- 6088 Oct, DM neuro manif type II E11.49 [facility] [id number] [place] [address] 81482- 1119 Oct, [facility] [id number] [place] [address] 74871- 7260 Sep, Chronic pain G89.29 [facility] [id number] [place] [address] 21851- 7517 Sep, [facility] [id number] [place] [address] 98629- 5950 Sep, Bilateral primary osteoarthritis of knee M17.0 [facility] [id number] [place] [address] 67094- 3206 18 Sep, 2017 Generalized edema R60.1 [facility] [address] 975414- 6088 16 Sep, 2017 Bipolar I disorder, most recent episode (or current) mixed, moderate F31.62 [facility] [id number] [place] [address] 18936- 4088 15 Sep, 2017 Hypoxia R09.02 ; Other hypervolemia E87.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 ; Anemia of chronic illness D63.8 and BMI 50.0- 59.9, adult Z68.43 [facility] [id number] [place] [address] 13779- 5316 Sep, [facility] [address] 27953- 6839 Sep, Bipolar I disorder, most recent episode (or current) mixed, moderate F31.62 [facility] [address] 98504- 7696 Aug, Chronic pain G89.29 [facility] [id number] [place] [address] 55092- 3700 Aug, Generalized edema R60.1 [facility] [id number] [place] [address] 55577- 3659 18 Aug, 2017 [facility] [id number] [place] [address] 78096- 9677 Aug, [place] [address] 94235- 3041 Aug, Bipolar I disorder, most recent episode (or current) mixed, moderate F31.62 [facility] [id number] [place] [address] 17302- 0799 07 Aug, 2017 Bipolar I disorder, most recent episode (or current) mixed, moderate F31.62 [facility] [id number] [place] [address] 24253- 5998 Aug, Chronic pain G89.29 [facility] [id number] [place] [address] 9256 Jul, Bipolar I disorder, most recent episode (or current) mixed, moderate F31.62 [facility] [id number] [place] [address] 30128- 6131 Jul, Bipolar I disorder, most recent episode (or current) mixed, moderate F31.62 and BMI 60.0-69.9, adult Z68.44 [place] [facility] [id number] [place] [address] 355 Jul, Bipolar I disorder, most recent episode (or current) mixed, moderate F31.62 [facility] [id number] [place] [address] 31718- 4537 Jul, Chronic pain G89.29 [facility] [id number] [place] [address] 572629- 8949 Jul, Bipolar I disorder, most recent episode (or current) mixed, moderate F31.62 [facility] [id number] [place] [address] 42413- 2531 Jun, Polyneuropathy associated with underlying disease G63 and Diabetes E11.9 [facility] [id number] [place] [address] 04414- 9800 Jun, Bipolar I disorder, most recent episode (or current) mixed, moderate F31.62 [facility] [id number] [place] [address] 84433- 2111 Jun, Chronic pain G89.29 [facility] [id number] [place] [address] 54236- 7392 May, Bipolar I disorder, most recent episode (or current) mixed, moderate F31.62 [facility] [id number] [place] [address] 74877- 6396 21 May, 2017 Bipolar I disorder, most recent episode (or current) mixed, moderate F31.62 [facility] [id number] [place] [address] 42893- 3976 20 May, 2017 Diabetic polyneuropathy associated with type 2 diabetes mellitus E11.42 [facility] [id number] [place] [address] 779499- 1192 18 May, 2017 Bipolar I disorder, most recent episode (or current) mixed, moderate F31.62 [facility] [id number] [place] [address] 46600- 2986 13 May, 2017 Bipolar I disorder, most recent episode (or current) mixed, moderate F31.62 [place] [facility] [id number] [place] [address] 61338- 1898 12 May, 2017 Chronic pain G89.29 [facility] [id number] [place] [address] 42588- 2694 30 Apr, 2017 Bipolar I disorder, most recent episode (or current) mixed, moderate F31.62 [facility] [id number] [place] [address] 90208- 4212 Apr, [facility] [id number] [place] [address] 83004- 7642 Apr, Chronic pain G89.29 and DM neuro manif type II E11.49 [facility] [id number] [place] [address] 28069- 4208 Apr, [facility] [id number] [place] [address] 37768- 8428 16 Apr, 2017 Bipolar I disorder, most recent episode (or current) mixed, moderate F31.62 [facility] [id number] [place] [address] 60306- 9345 14 Apr, 2017 Chronic pain G89.29 [facility] [id number] [place] [address] 58450- 8559 Apr, Iliotibial band syndrome, left M76.32 [facility] [id number] [place] [address] 40357- 3345 Apr, Bipolar I disorder, most recent episode (or current) mixed, moderate F31.62 [facility] [id number] [place] [address] 62075- 2056 Mar, Bipolar I disorder, most recent episode (or current) mixed, moderate F31.62 [facility] [id number] [place] [address] 83611- 8188 Mar, Bipolar I disorder, most recent episode (or current) mixed, moderate F31.62 [facility] [id number] [place] [address] 24271- 9107 Mar, [facility] [id number] [place] [address] 26605- 6615 Mar, Bipolar I disorder, most recent episode (or current) mixed, moderate F31.62 [facility] [id number] [place] [address] 15611- 5146 Mar, Chronic pain G89.29 [place] [facility] [id number] [place] [address] 04624- 0190 Mar, Bipolar I disorder, most recent episode (or current) mixed, moderate F31.62 [facility] [id number] [place] [address] 83939- 3054 Mar, Bipolar I disorder, most recent episode (or current) mixed, moderate F31.62 [facility] [id number] [place] [address] 02160- 9011 Mar, Acute pain of left knee M25.562 ; Left hip pain M25.552 ; Generalized edema R60.1 and Tongue swelling R22.0 [facility] [id number] [place] [address] 05313- 7463 Mar, [facility] [id number] [place] [address] 60154- 2397 Feb, Chronic pain G89.29 [facility] [address], [place] [address]- 0873 Feb, Diabetes E11.9 [facility] [id number] [place] [address] 96451- 9853 January, Chronic pain G89.29 [facility] [id number] [place] [address] 76889- 9853 January, [facility] [id number] [place] [address] 07039- 3249 January, Bipolar I disorder, most recent episode (or current) mixed, moderate F31.62 [place] [id number] [place] [address] 00012- 1648 Dec, Bipolar I disorder, most recent episode (or current) mixed, moderate F31.62 [place] [id number] [place] [address] 89457- 4392 Dec, Chronic pain G89.29 [facility] [id number] [place] [address] 26149- 5449 Dec, Bipolar I disorder, most recent episode (or current) mixed, moderate F31.62 [place] [id number] [place] [address] 80873- 0485 Dec, Diabetes E11.9 ; Essential hypertension I10 ; Chronic pain G89.29 and Morbid obesity E66.01 [facility] [address] [address]- 0521 Dec, [facility] [id number] [place] [address] 00529- 6154 Dec, Bipolar I disorder, most recent episode (or current) mixed, moderate F31.62 [place] [id number] [place] [address] 25647- 6527 Dec, Bipolar I disorder, most recent episode (or current) mixed, moderate F31.62 [place] [address] [address]- 8520 Nov, Chronic pain G89.29 [facility] [id number] [place] [address] 04007- 1996 Nov, Bipolar I disorder, most recent episode (or current) mixed, moderate F31.62 [facility] [id number] [place] [address] 56092- 8927 Nov, [facility] [id number] [place] [address] 54669- 0754 Nov, Bipolar I disorder, most recent episode (or current) mixed, moderate F31.62 [facility] [id number] [place] [address] 07842- 4435 Nov, Bipolar I disorder, most recent episode (or current) mixed, moderate F31.62 [facility] [id number] [place] [address] 98528- 2770 Nov, [facility] [id number] [address]- 6430 Nov, [facility] [id number], [place] [address]- 2477 Nov, [facility] [address], [place] [address]- 4867 Oct, Chronic pain G89.29 [facility] [address], [place] [address]- 5910 Oct, Bipolar I disorder, most recent episode (or current) mixed, moderate F31.62 [facility] [address] [address]- 3616 Oct, [facility] [address], [place] [address]- 7634 15 Oct, 2016 Chronic pain G89.29 ; Diabetes E11.9 ; Anxiety F41.9 and 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 [facility] [address] [address]- 6933 Oct, [facility] [id number] [place] [address] 14670- 4396 Oct, Diabetes E11.9 [facility] [address], [place] [address]- 7176 Oct, Bipolar I disorder, most recent episode (or current) mixed, moderate F31.62 [facility] [id number] [address]- 8830 Sep, Chronic pain G89.29 [facility] [id number] [place] [address] 82943- 4386 Sep, Chronic pain G89.29 [facility] [id number] [place] [address] 74615- 2806 Aug, Chronic pain G89.29 [facility] [id number] [place] [address] 01395- 8780 Jul, [facility] [id number] [place] [address] 20964- 8676 Jul, Diabetes E11.9 [facility] [id number] [place] [address] 59275- 9204 Jul, Chronic pain G89.29 [facility] [id number] [place] [address] 94282- 6753 Jul, Bipolar I disorder, most recent episode (or current) mixed, moderate F31.62 [facility] [address], [place] [address]- 0660 Jun, Bipolar I disorder, most recent episode (or current) mixed, moderate F31.62 [facility] [address], [place] [address]- 7756 Jun, [facility] [id number] [place] [address] 73350- 4585 Jun, Bipolar I disorder, most recent episode (or current) mixed, moderate F31.62 [facility] [id number] [place] [address] 97342- 9047 30 May, 2016 Insomnia, unspecified type G47.00 [facility] [id number] [place] [address] 32533- 3209 22 May, 2016 Bipolar I disorder, most recent episode (or current) mixed, moderate F31.62 [facility] [id number] [place] [address] 25345- 8279 14 May, 2016 [facility] [place] [id number] [place] [address] 61794- 4352 08 May, 2016 Bipolar I disorder, most recent episode (or current) mixed, moderate F31.62 [facility] [id number] [place] [address] 87323- 1132 May, Diabetes E11.9 and Essential hypertension I10 [facility] [id number] [place] [address] 40796- 3556 Apr, Chronic pain G89.29 [facility] [id number] [place] [address] 54843- 5830 Apr, Bipolar I disorder, most recent episode (or current) mixed, moderate F31.62 [facility] [facility] [id number] [place] [address] 15895- 7067 Apr, [facility] [id number] [place] [address] 19607- 0036 Apr, [facility] [id number] [place] [address] 85257- 6713 Mar, Chronic pain G89.29 ; Headache, unspecified headache type R51 ; Neuropathy G62.9 ; Pain of right hip joint M25.551 and Essential hypertension I10 [facility] [id number] [place] [address] 26892- 7094 Mar, Chronic pain G89.29 [facility] [address], [place] [address]- 4226 Mar, Bipolar I disorder, most recent episode (or current) mixed, moderate F31.62 [facility] [id number] [place] [address] 13728- 6075 Feb, Bipolar I disorder, most recent episode (or current) mixed, moderate F31.62 and Insomnia, unspecified type G47.00 [facility] [id number] [place] [address] 65946- 4668 Feb, Chronic pain G89.29 [facility] [id number] [place] [address] 33353- 0673 Feb, Bipolar I disorder, most recent episode (or current) mixed, moderate F31.62 [facility] [facility] [id number] [place] [address] 95903- 1821 January, Bipolar I disorder, most recent episode (or current) mixed, moderate F31.62 [facility] [id number] [place] [address] 94752- 9519 January, Chronic pain G89.29 [facility] [id number] [place] [address] 23320- 3173 January, Chronic pain G89.29 and Essential hypertension I10 [facility] [id number] [place] [address] 61910- 4938 January, Bipolar I disorder, most recent episode (or current) mixed, moderate F31.62 [facility] [id number] [place] [address] 36258- 6109 Dec, [facility] [id number] [place] [address] 04533- 5663 Dec, [facility] [id number] [place] [address] 10773- 1261 Dec, [facility] [id number] [place] [address] 86789- 3098 Dec, [facility] [id number] [place] [address] 92904- 4225 Nov, Reactive airway disease J45.909 [facility] [id number] [place] [address] 81347- 9565 Nov, [facility] [id number] [place] [address] 26772- 2959 Nov, [facility] [id number] [place] [address] 21928- 7590 Nov, [facility] [id number] [place] [address] 53809- 9479 Nov, [facility] [id number] [place] [address] 98358- 6777 Nov, Onychomycosis B35.1 ; Hammertoe M20.40 ; [place] or callus L84 and DM neuro manif type II E11.49 [facility] [id number] [place] [address] 31865- [phone] Nov, Chronic pain G89.29 ; Leukocytosis D72.829 and Diabetes E11.9 [place] [id number] [place] [address] 73726- [phone] Nov, [place] [id number] [place] [address] [phone]- [phone] Oct, Bronchitis J40 [place] [id number] [place] [address] [phone]- [phone] Oct, [facility] [id number] [place] [address] [phone]- [phone] Oct, [place] [id number] [place] [address] 02412- [phone] Oct, Mastoiditis, unspecified laterality H70.90 and Type 2 diabetes mellitus with complication E11.8 [place] [id number] [place] [address] [phone]- [phone] Sep, [facility] [id number] [place] [address] 69040- 5894 Sep, Dysuria R30.0 ; Cough R05 ; Benign prostatic hyperplasia with lower urinary tract symptoms, unspecified morphology N40.1 ; Hypokalemia E87.6 and Eustachian tube dysfunction, unspecified laterality H69.80 [facility] [id number] [place] [address] [phone]- 6850 Sep, Moderate mixed bipolar I disorder F31.62 [facility] [id number] [place] [address] [phone]- [phone] Sep, Hypokalemia E87.6 [facility] [id number] [place] [address] [phone]- [phone] Sep, [facility] [id number] [place] [address] [id number]- 6510 Sep, Upper respiratory tract infection, unspecified type J06.9 [facility] [id number] [place] [address] [phone]- [phone] Aug, [facility] [address] [id number] [place] [address] 20577- 0221 Aug, Dysuria R30.0 [facility] [id number] [place] [address] 43082- 9848 Aug, [facility] [id number] [place] [address] 05023- 2610 Jul, [facility] [id number] [place] [address] 49413- 3565 Jul, [facility] [id number] [place] [address] 68944- 4299 Jul, [facility] [id number] [place] [address] 87954- 9439 Jul, [facility] [id number] [place] [address] 16043- 8403 Jun, [facility] [address] [address] 5464 Jun, [facility] [id number] [place] [address] 86836- 7262 Jun, [facility] [address] [address] 8246 May, [facility] [id number] [place] [address] 83354- 7492 May, Bipolar I disorder, most recent episode (or current) mixed, moderate 296.62 [facility] [id number] [place] [address] 39706- 1088 May, [facility] [id number] [place] [address] 05104- 7626 May, Bipolar I disorder, most recent episode (or current) mixed, moderate 296.62 and Major depressive disorder, recurrent episode, severe, specified as with psychotic behavior 296.34 [facility] [id number] [place] [address] 33777- 8768 May, Bipolar I disorder, most recent episode (or current) mixed, moderate 296.62 [facility] [address] [address] 1868 May, [facility] [address] [address]- 1667 Apr, [facility] [address] [address]- 4557 Apr, [facility] [id number] [place] [address] 55018- 7193 Apr, Unspecified disorder of kidney and ureter 593.9 and Diabetes mellitus type 2, uncontrolled 250.02 [facility] [address] [address]- 4546 Apr, [facility] [id number] [place] [address] 82514- 7896 Apr, [facility] [address] [address]- 5951 Apr, [facility] [address], [place] [address]- 8229 Apr, [facility] [address] [address]- 5240 Apr, Diabetes mellitus type II, uncontrolled 250.02 [facility] [id number] [place] [address] 60273- 3450 Apr, [facility] [id number] [place] [address] 89440- 5183 Mar, [facility] [id number] [place] [address] 50787- 8297 Mar, [facility] [id number] [place] [address] 22657- 1274 Mar, [facility] [address] [address]- 0659 Mar, Major depressive disorder, recurrent episode, severe, specified as with psychotic behavior 296.34 and Bipolar I disorder, most recent episode (or current) mixed, moderate 296.62 [facility] [address] [address]- 7001 Mar, Diabetes 250.00 ; Anuria 788.5 ; Nausea and vomiting 787.01 and Diarrhea 787.91 [facility] [id number] [address]- 2913 Mar, Diabetes 250.00 [facility] [address], [place] [address]- 4182 Mar, [facility] [address], [place] [address]- 9591 Mar, Diabetes 250.00 [facility] [id number] [place] [address] 63320- 3485 Mar, [facility] [id number] [place] [address] 69053- 8744 Mar, [facility] [id number] [place] [address] 44269- 3490 Mar, [facility] [id number] [place] [address] 15848- 3407 Mar, [facility] [id number] [place] [address] 17019- 4464 Mar, Bipolar I disorder, most recent episode (or current) mixed, moderate 296.62 and Major depressive disorder, recurrent episode, severe, specified as with psychotic behavior 296.34 [facility] [id number] [place] [address] 34355- 5036 Mar, Magnesium deficiency 275.2 ; Hypokalemia 276.8 ; Nausea & vomiting 787.01 and Diabetes mellitus type 2, uncontrolled 250.02 [facility] [id number] [place] [address] 94896- 1047 Feb, [facility] [id number] [place] [address] 54493- 8351 Feb, Bipolar I disorder, most recent episode (or current) mixed, moderate 296.62 [facility] [id number] [place] [address] 53232- 9369 Feb, Nausea and vomiting 787.01 ; Left elbow pain 719.42 ; Anuria 788.5 and Diabetes 250.00 [facility] [address], [place] [address]- 5147 Feb, [facility] [id number] [place] [address] 99500- 9430 Feb, Hypopotassemia 276.8 and Hypokalemia 276.8 [facility] [id number] [place] [address] 78528- 9420 Feb, Hypopotassemia 276.8 and Hypokalemia 276.8 [id number], [place] [address]- 5877 Feb, Seborrheic keratoses 702.19 [facility] [id number] [place] [address] 20258- 5044 Feb, Hypopotassemia 276.8 and Low magnesium levels 275.2 [facility] [id number] [place] [address] 59790- 4121 January, [facility] [id number] [place] [address] 99868- 5547 January, [facility] [id number] [place] [address] 66694- 8284 January, [facility] [id number] [place] [address] 86039- 2661 January, Scalp lesion 709.9 [facility] [id number] [place] [address] 18385- 1994 January, [facility] [id number] [place] [address] 20114- 9192 Dec, Tear of medial cartilage or meniscus of knee, current 836.0 and 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 [facility] [address], [place] [address]- 3108 Dec, [facility] [id number] [place] [address] 67247- 1278 Dec, [facility] [id number] [place] [address] 59549- 5374 Dec, Squamous cell carcinoma, 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 [facility] [id number] [place] [address] 13119- 8348 Dec, [facility] [address], [place] [address]- 0254 Dec, [facility] [id number] [place] [address] 88770- 8169 Nov, [facility] [place] [facility] [address] [id number] [place] [address]- 0912 Nov, [facility] [place] [facility] [address] [id number] [place] [address]- 1637 Nov, [facility] [place] [facility] [address] [id number] [place] [address]- 5949 Nov, [facility] [place] [facility] [address] [id number] [place] [address]- 7507 Nov, [facility] [place] [facility] [address] [id number] [place] [address]- 5691 Nov, [facility] [place] [facility] [address] [id number] [place] [address]- 3372 Nov, [facility] [place] [facility] [address] [id number] [place] [address]- 6155 Nov, [facility] [place] [facility] [address] [id number] [place] [address]- 6620 Nov, [facility] [place] [facility] [address] [id number] [place] [address]- 4663 Nov, [facility] [place] [facility] [address] [facility] [id number] [place] [address]- 5891 Nov, [facility] [place] [facility] [address] [id number], [place] [address]- 7526 Nov, [facility] [place] [facility] [address] [id number] [address]- 2988 Oct, [facility] [place] [facility] [address] [id number] [place] [address]- 8185 Oct, [facility] [place] [facility] [address] [id number] [place] [address]- 4850 Oct, [facility] [place] [facility] [address] [facility] [id number] [address]- 2633 Oct, [facility] [place] [facility] [address] [id number] [place] [address]- 7980 Oct, 2014 [facility] [place] [facility] [address] [id number] [place] [address]- 0272 Oct, [facility] [place] [facility] [address] [id number] [place] [address]- 6466 Oct, 2014 [facility] [place] [facility] [address] [id number] [place] [address]- 2646 Oct, [facility] [place] [facility] [address] [id number] [place] [address]- 9635 Oct, [facility] [place] [facility] [address] [id number] [place] [address]- 5998 Sep, [facility] [place] [facility] [address] [id number] [place] [address]- 6283 Sep, [facility] [place] [facility] [address] [id number] [place] [address]- 6657 Sep, [facility] [place] [facility] [address] [id number] [place] [address]- 7534 Sep, [facility] [place] [facility] [address] [id number] [place] [address]- 1558 Sep, [facility] [place] [facility] [address] [id number] [place] [address]- 5291 Sep, [facility] [place] [facility] [address] [id number] [place] [address]- 4286 Sep, [facility] [place] [facility] [address] [id number] [place] [address]- 6509 Sep, [facility] [place] [facility] [address] [id number] [place] [address]- 3122 Sep, [facility] [place] [facility] [address] [id number] [place] [address]- 5539 Sep, [facility] [place] [facility] [address] [id number] [place] [address]- 6267 Sep, [facility] [place] [facility] [address] [id number] [place] [address]- 9150 Sep, [facility] [place] [facility] [address] [id number] [place] [address]- 1864 Sep, [facility] [place] [facility] [address] [id number] [place] [address]- 4644 Sep, [facility] [place] [facility] [address] [id number] [place] [address]- 8026 Sep, [facility] [place] [facility] [address] [id number] [place] [address]- 8057 Sep, [facility] [place] [facility] [address] [id number] [place] [address]- 9653 Aug, [facility] [place] [facility] [address] [id number] [place] [address]- 1278 Aug, [facility] [place] [facility] [address] [id number] [place] [address]- 9690 Aug, [facility] [place] [facility] [address] [id number] [place] [address]- 6003 Aug, [facility] [place] [facility] [address] [id number] [place] [address]- 3456 Aug, [facility] [place] [facility] [address] [id number] [place] [address]- 7071 31 Aug, 2014 [facility] [place] [facility] [address] [id number], [place] [address]- 8510 Aug, [facility] [place] [facility] [address] [id number] [place] 6363 Aug, [facility] [place] [facility] [address] [id number] [place] [address]- 7614 Aug, [facility] [place] [facility] [address] [id number] [place] [address]- 7515 Aug, [facility] [place] [facility] [address] [id number] [place] [address]- 6525 Aug, [facility] [place] [address] [place] [id number] Aug, [facility] [address] [id number] [place] [address]- 9632 Aug, [facility] [address] [id number] [place] [address]- 7692 Aug, [facility] [address] [id number] [place] [address]- 6947 Aug, [facility] [address] [id number] [place] [address]- 5868 Aug, [facility] [address] [id number] [place] [address]- 4338 Aug, [facility] [address] [id number] [place] [address]- 3848 Aug, [facility] [address] [id number] [place] [address]- 0067 Aug, [facility] [address] [id number] [place] [address]- 2409 Aug, [facility] [address] [id number] [place] [address]- 9760 Aug, [facility] [address] [id number] [place] [address]- 9987 Aug, [facility] [place] [facility] [address] [id number] [place] [address]- 6946 Aug, [facility] [place] [facility] [address] [id number] [place] [address]- 2839 Aug, [facility] [place] [facility] [address] [id number] [place] [address]- 5761 Aug, [facility] [place] [facility] [address] [id number] [place] [address]- 3849 Aug, [facility] [place] [facility] [address] [id number] [place] [address]- 6773 Aug, [facility] [place] [facility] [address] [id number] [place] 1985 Aug, [facility] [place] [facility] [address] [id number] [place] [address]- 2731 Aug, [facility] [place] [facility] [address] [id number] [place] [address]- 3114 Aug, [facility] [place] [facility] [address] [id number] [place] [address]- 2315 Jul, [facility] [place] [facility] [address] [id number] [place] [address]- 3997 Jul, [facility] [place] [facility] [address] [id number] [place] [address]- 0303 Jul, [facility] [place] [facility] [address] [id number] [place] [address]- 3427 Jul, [facility] [place] [facility] [address] [id number] [place] [address]- 6440 Jul, [facility] [place] [facility] [address] [id number] [place] [address]- 9287 Jul, [facility] [place] [facility] [address] [id number] [place] [address]- 4384 Jul, [facility] [place] [facility] [address] [id number] [place] [address]- 2998 Jul, [facility] [place] [facility] [address] [id number] [place] [address]- 4499 Jul, [facility] [place] [facility] [address] [id number] [place] [address]- 8644 Jul, [facility] [place] [facility] [address] [id number] [place] 4995 Jun, [facility] [place] [facility] [address] [id number] [place] [address]- 5183 Jun, [facility] [place] [facility] [address] [id number] [place] [address]- 2571 Jun, [facility] [place] [facility] [address] [id number] [place] [address]- 1389 16 Jun, 2014 [facility] [place] [facility] [address] [id number] [place] [address]- 1694 Jun, [facility] [place] [facility] [address] [id number] [place] [address]- 8198 Jun, [facility] [place] [facility] [address] [id number] [place] [address]- 8986 Jun, [facility] [place] [facility] [address] [id number] [place] [address]- 1398 Jun, [facility] [place] [facility] [address] [id number] [place] [address]- 8508 Jun, [facility] [place] [facility] [address] [id number] [place] [address]- 0214 Jun, [facility] [place] [facility] [address] [id number] [place] [address]- 8822 29 May, 2014 [facility] [place] [facility] [address] [id number] [place] [address]- 6467 29 May, 2013 [facility] [place] [facility] [address] [id number], [place] [address]- 4239 26 May, 2013 [facility] [place] [facility] [address] [id number], [place] [address]- 5148 26 May, 2013 [facility] [place] [facility] [address] [id number] [place] [address]- 8697 17 Sep, 2013 [facility] [place] [facility] [address] [id number] [place] [address]- 8191 17 May, 2013 [facility] [place] [facility] [address] [id number] [place] [address]- 9105 15 May, 2013 [facility] [place] [facility] [address] [id number] [place] [address]- 2327 15 May, 2013 [facility] [place] [facility] [address] [id number] [place] [address]- 2966 15 May, 2013 [facility] [place] [facility] [address] [id number] [place] [address]- 5106 15 May, 2013 [facility] [place] [facility] [address] [id number] [place] [address]- 5166 10 May, 2013 [facility] [place] [facility] [address] [id number] [place] [address]- 8356 10 May, 2013 [facility] [place] [facility] [address] [id number] [place] [address]- 2390 09 May, 2013 [facility] [place] [facility] [address] [id number] [place] [address]- 3094 May, 2013 [facility] [place] [facility] [address] [id number] [place] [address]- 0170 04 May, 2013 [facility] [place] [facility] [address] [id number] [place] [address]- 7863 May, 2013 [facility] [place] [facility] [address] [id number] [place] [address]- 0961 Apr, [facility] [place] [facility] [address] [id number] [place] [address]- 2179 Apr, [facility] [place] [facility] [address] [id number] [place] [address]- 9734 Apr, [facility] [place] [facility] [address] [id number] [place] [address]- 2540 Apr, [facility] [place] [facility] [address] [id number] [place] [address]- 6837 Apr, [facility] [place] [facility] [address] [id number] [place] [address]- 8845 Apr, [facility] [place] [facility] [address] [id number] [place] [address]- 7638 Apr, [facility] [place] [facility] [address] [id number] [place] [address]- 5753 Apr, [facility] [place] [facility] [address] [id number] [place] [address]- 1443 Apr, [facility] [place] [facility] [address] [id number] [place] [address]- 0056 Apr, [facility] [place] [facility] [address] [id number] [place] [address]- 6583 Apr, [facility] [place] [facility] [address] [id number] [place] [address]- 2087 Apr, [facility] [place] [facility] [address] [id number] [place] [address]- 2174 Apr, [facility] [place] [facility] [address] [id number] [place] [address]- 6586 Apr, [facility] [place] [facility] [address] [id number] [place] [address]- 4408 Apr, [facility] [place] [facility] [address] [id number] [place] [address] Mar, [facility] [place] [facility] [address] [id number] [place] [address] Mar, [facility] [place] [facility] [address] [id number] [place] [address] Mar, [facility] [place] [facility] [address] [id number] [place] [address] Mar, [facility] [place] [facility] [address] [id number] [facility] [place] [address] Mar, [facility] [place] [facility] [address] [id number] [place] [address] Mar, [facility] [place] [facility] [address] [id number] [place] [address] Mar, [facility] [place] [facility] [address] [id number] [place] [address] Mar, 2013 [facility] [place] [facility] [address] [id number] [place] [address] Mar, 2013 [facility] [place] [facility] [address] [id number] [place] [address] Mar, 2013 [facility] [place] [facility] [address] [id number] [place] [address] Mar, 2013 [facility] [place] [facility] [address] [id number] [place] [address] Mar, 2013 [facility] [place] [facility] [address] [id number] [place] [address]- 285[address] Mar, 2013 [facility] [place] [facility] [address] [id number] [place] [address]- [address] Mar, 2013 [facility] [place] [facility] [address] [id number] [place] [address] Mar, 2013 [facility] [place] [facility] [address] [id number] [place] [address] Mar, 2013 [facility] [place] [facility] [address] [id number] [place] [address] Mar, [facility] [place] [facility] [address] [id number] [place] [address] Mar, [facility] [place] [facility] [address] [id number] [place] [address] Feb, [facility] [place] [facility] [address] [id number] [place] [address] Feb, [facility] [place] [facility] [address] [id number] [place] [address] Feb, [facility] [place] [facility] [address] [id number] [place] [address]- 6767 Feb, [facility] [place] [facility] [address] [id number] [place] [address]- [address] Feb, [facility] [place] [facility] [address] [id number] [place] [address]- [address] Feb, [facility] [place] [facility] [address] [id number] [place] [address] Feb, [facility] [place] [facility] [address] [id number] [place] [address] Feb, [facility] [place] [facility] [address] [id number] [place] [address]- [address] Feb, [facility] [place] [facility] [address] [id number] [place] [address] Feb, [facility] [place] [facility] [address] [id number] [place] [address] Feb, [facility] [place] [facility] [address] [id number] [place] [address] Feb, [facility] [place] [facility] [address] [id number] [place] [address] Feb, [facility] [place] [facility] [address] [id number] [place] [address] Feb, [facility] [place] [facility] [address] [id number] [place] [address] January, [facility] [place] [facility] [address] [id number] [place] [address] January, [facility] [place] [facility] [address] [id number] [place] [address] 85[address] January, [facility] [place] [facility] [address] [id number] [place] [address] January, [facility] [place] [facility] [address] [id number] [place] [address] January, [facility] [place] [facility] [address] [id number] [place] [address] January, [facility] [place] [facility] [address] [id number] [place] [address] January, [facility] [address] [id number] [place] [address] January, [facility] [place] [facility] [address] [id number] [place] [address] January, [facility] [place] [facility] [address] [id number] [place] [address] January, [facility] [place] [facility] [address] [id number] [place] [address] January, [facility] [place] [facility] [address] [id number] [place] [address]- [address] January, [facility] [place] [facility] [address] [id number] [place] [address]777 January, [facility] [place] [facility] [address] [id number] [place] [address] January, [facility] [place] [facility] [address] [id number] [place] [address]- [address] Dec, [facility] [place] [facility] [address] [id number] [place] [address]- [address]78 Dec, [facility] [place] [facility] [address] [id number] [place] [address]- [address]692 Dec, [facility] [place] [facility] [address] [id number] [place] [address]- 8412 Dec, [facility] [place] [facility] [address] [id number] [place] [address]- 7764 Dec, [facility] [place] [facility] [address] [id number] [place] [address]- 7495 Dec, [facility] [place] [facility] [address] [id number] [place] [address]- 7534 Dec, [facility] [place] [facility] [address] [id number] [place] [address]- [address]451 Dec, [facility] [place] [facility] [address] [id number] [place] [address] 1628 Dec, [facility] [place] [facility] [address] [id number] [place] [address]- [address] Dec, [facility] [place] [facility] [address] [id number] [place] [address] Nov, [facility] [place] [facility] [address] [id number] [place] [address]- [address]97 Nov, [facility] [place] [facility] [address] [id number] [place] [address]- [address] Nov, [facility] [facility] [address] [id number] [place] [address] Nov, [facility] [place] [facility] [address] [id number] [place] [address]248 Nov, [facility] [place] [facility] [address] [facility] [id number] [place] [address] 288[address] Nov, [facility] [place] [facility] [address] [id number] [place] [address] 4448 Nov, [facility] [place] [facility] [address] [id number] [place] [address] 9745 Nov, [facility] [place] [facility] [address] [facility] [id number] [place] [address]19 Nov, [facility] [place] [facility] [address] [id number] [place] [address]- 5524 Nov, [facility] [place] [facility] [address] [id number] [place] [address]- 4089 Oct, [facility] [place] [facility] [address] [id number] [place] [address] Oct, [facility] [place] [facility] [address] [id number] [place] [address]- 0373 Oct, [facility] [place] [facility] [address] [facility] [place] [id number] [place] [address]- 2012 Oct, [facility] [place] [facility] [address] [id number] [place] [address]- 4769 Oct, [facility] [address] [id number] [place] [address]- 2929 Oct, [facility] [facility] [address] [id number] [place] [address]- 3686 Oct, [facility] [address] [id number] [place] [address]- 7174 Oct, [facility] [address] [id number] [place] [address]- 9647 Oct, [facility] [place] [address] [id number] [place] [address]- 1594 Oct, [facility] [place] [facility] [address] [id number] [place] [address]- 8846 Oct, [facility] [address] [id number] [place] [address]- 9842 Oct, [facility] [address] [id number] [place] [address]- 1834 Oct, [facility] [facility] [address] [id number] [place] [address]- 5551 Oct, [facility] [address] [id number] [place] [address]- 0543 Sep, [facility] [address] [id number] [place] [address]- 3284 Sep, [facility] [address] [id number] [place] [address]- 6230 Sep, [facility] [address] [id number] [place] [address]- 0117 Sep, [facility] [address] [id number] [place] [address]- 2641 Sep, [facility] [address] [id number] [place] [address]- 6308 14 Sep, 2013 [facility] [address] [id number] [place] [address]- 9749 14 Sep, 2013 [facility] [address] [id number] [place] [address]- 9070 14 Sep, 2013 [facility] [address] [id number] [place] [address]- 1823 08 Sep, 2013 [facility] [address] [id number] [place] [address]- 8028 08 Sep, 2013 [facility] [address] [id number] [place] [address]- 3559 Aug, [facility] [address] [id number] [place] [address]- 8503 Aug, [facility] [address] [id number] [place] [address]- 3304 Jul, [facility] [address] [id number] [place] [address]- 0608 Jul, [facility] [address] [id number] [place] [address]- 1174 Jul, [facility] [address] [id number] [place] [address]- 5587 Jul, [facility] [address] [id number] [place] [address]- 1269 Jul, [facility] [address] [id number] [place] [address]- 9620 Jul, [facility] [address] [id number] [place] [address]- 1448 Jul, [facility] [address] [id number] [place] [address]- 3374 Jul, [facility] [address] [id number] [place] [address]- 3202 Jul, [facility] [address] [id number] [place] [address]- 6380 Jul, [facility] [address] [id number] [place] [address]- 8657 Jul, [facility] [address] [id number] [place] [address]- 7579 Jul, [facility] [address] [id number] [place] [address]- 0072 Jul, [facility] [address] [id number] [place] [address]- 0884 Jul, [facility] [address] [id number] [place] [address]- 7503 Jul, [facility] [address] [id number] [place] [address]- 9968 Jul, [facility] [address] [id number] [place] [address]- 7670 Jul, [facility] [address] [id number] [place] [address]- 8104 Jul, [facility] [address] [id number] [place] [address]- 6535 Jul, [facility] [address] [id number] [place] [address]- 8487 Jun, [facility] [address] [id number] [address] 5358 Jun, [facility] [address] [id number] [place] [address]- 7525 Jun, [facility] [address] [id number] [place] [address]- 4224 Jun, [facility] [address] [id number] [place] [address]- 6097 Jun, [facility] [address] [id number] [place] [address]- 7008 16 Jun, 2013 [facility] [address] [id number] [place] [address]- 8172 10 Jun, 2013 [facility] [address] [id number] [place] [address]- 3888 Jun, [facility] [address] [id number] [place] [address]- 7470 Jun, [facility] [address] [id number] [place] [address]- 5420 Jun, [facility] [address] [id number] [place] [address]- 3961 Jun, [facility] [address] [id number] [place] [address]- 6453 26 May, 2013 [facility] [address] [id number] [place] [address]- 1492 25 May, 2013 [facility] [address] [id number] [place] [address]- 5480 19 May, 2013 [facility] [address] [id number] [place] [address]- 5532 17 May, 2013 [facility] [address] [id number] [place] [address]- 3600 11 May, 2013 [facility] [address] [id number] [place] [address]- 1770 10 May, 2013 [facility] [address] [id number] [place] [address]- 3694 09 May, 2013 [facility] [address] [id number] [place] [address]- 2545 05 May, 2013 [facility] [address] [id number] [place] [address]- 6144 30 Apr, 2013 [facility] [address] [id number] [place] [address]- 2540 Apr, [facility] [address] [id number] [place] [address]- 2543 Apr, [facility] [address] [id number] [place] [address]- 5591 Apr, [facility] [address] [id number] [place] [address]- 9306 Apr, [facility] [address] [id number] [place] [address]- 7092 Mar, [facility] [address] [id number] [place] [address]- 0591 Mar, [facility] [address] [id number] [place] [address]- 5916 Mar, [facility] [address] [id number] [place] [address]- 5318 Mar, [facility] [address] [id number] [place] [address]- 2222 Mar, [facility] [address] [id number] [place] [address]- 0581 Mar, [facility] [address] [id number] [place] [address]- 6116 Mar, [facility] [address] [id number] [place] [address]- 6654 Mar, [facility] [address] [id number] [place] [address]- 5751 Feb, [facility] [address] [id number] [place] [address]- 0093 Feb, [facility] [address] [id number] [place] [address]- 5098 January, [facility] [address] [id number] [place] [address]- 2546 January, [facility] [address] [id number] [place] [address]- 0911 Dec, [facility] [address] [id number] [place] [address]- 7161 09 Dec, 2012 [facility] [address] [id number] [place] [address]- 1101 23 Nov, 2012 [facility] [address] [id number] [place] [address]- 6707 Nov, [facility] [address] [id number] [place] [address]- 8890 Nov, [facility] [address] [id number] [place] [address]- 0989 Nov, [facility] [address] [id number] [place] [address]- 8715 27 Oct, 2012 [facility] [address] [id number] [place] [address]- 8925 Oct, [facility] [address] [id number] [place] [address]- 8669 Oct, [facility] [address] [id number] [place] [address]- 6199 Oct, [facility] [address] [id number] [place] [address]- 4200 16 Oct, 2012 [facility] [address] [id number] [place] [address]- 5500 14 Oct, 2012 [facility] [address] [id number] [place] [address]- 1132 08 Oct, 2012 [facility] [address] [id number] [place] [address]- 9178 07 Oct, 2012 [facility] [address] [id number] [place] 03 Oct, 2012 [facility] [address] [id number] [place] [address]- 4518 Sep, [facility] [address] [id number] [place] [address]- 9136 29 Sep, 2012 [facility] [address] [id number] [place] [address]- 0728 23 Sep, 2012 [facility] [address] [id number] [place] [address]- 3626 Sep, [facility] [address] [id number] [place] [address]- 4756 17 Sep, 2012 [facility] [address] [id number] [place] [address]- 3461 Sep, [facility] [address] [id number] [place] [address]- 8219 Sep, [facility] [address] [id number] [place] [address]- 6796 Sep, [facility] [address] [id number] [place] [address]- 5958 Aug, [facility] [address] [id number] [place] [address]- 6678 31 Aug, 2012 [facility] [address] [id number] [place] [address]- 9907 Aug, [facility] [address] [id number] [place] [address]- 6816 Aug, [facility] [address] [id number] [place] [address]- 6741 Aug, [facility] [address] [id number] [place] [address] 2541 Aug, [facility] [address] [id number] [place] [address]- 8637 18 Aug, 2012 [facility] [address] [id number] [place] [address]- 8466 18 Aug, 2012 [facility] [address] [id number] [place] [address]- 0185 Jul, [facility] [address] [id number] [place] [address]- 0704 Jul, [facility] [address] [id number] [place] [address]- 3719 Jul, [facility] [address] [id number] [place] [address]- 0135 Jul, [facility] [address] [id number] [place] [address]- 6682 Jul, [facility] [address] [id number] [place] [address]- 7763 Jul, [facility] [place] [facility] [address] [id number] [place] [address]- 1805 Jun, [facility] [facility] [address] [id number] [place] [address]- 2560 Jun, [facility] [address] [id number], [place] [address]- 8445 Jun, [facility] [facility] [address] [id number] [place] [address]- 0598 Jun, [facility] [address] [id number], [place] [address]- 1551 Jun, [facility] [address] [id number], [place] [address]- 3833 Jun, [facility] [address] [id number], [place] [address]- 4592 Jun, [facility] [place] [facility] [address] [id number] [place] [address]- 7326 Jun, [facility] [facility] [address] [id number], [place] [address]- 9871 Jun, [facility] [facility] [address] [id number], [place] [address]- 9698 26 May, 2012 [facility] [facility] [address] [id number] [place] [address]- 5806 24 May, 2012 [facility] [place] [facility] [address] [id number] [place] [address]- 9656 May, [facility] [place] [facility] [address] [id number] [place] [address]- 9222 Apr, [facility] [place] [facility] [address] [id number] [place] [address]- 5336 Apr, [facility] [place] [facility] [address] [id number] [place] [address]- 6638 Apr, [facility] [place] [facility] [address] [id number] [place] [address]- 2607 Apr, [facility] [place] [facility] [address] [id number] [place] [address]- 0592 Apr, [facility] [place] [facility] [address] [id number] [place] [address]- 4109 Apr, [facility] [place] [facility] [address] [id number] [place] [address]- 2151 Mar, [facility] [place] [facility] [address] [id number] [place] [address]- 2704 Mar, [facility] [place] [facility] [address] [id number] [place] [address]- 8249 Mar, [facility] [place] [facility] [address] [id number] [place] [address]- 3198 Mar, [facility] [place] [facility] [address] [id number] [place] [address]- 0108 Feb, [facility] [place] [facility] [address] [id number] [place] [address]- 8739 Feb, [facility] [place] [facility] [address] [id number] [place] [address]- 3016 Feb, [facility] [place] [facility] [address] [id number] [place] [address]- 8845 Feb, [facility] [place] [facility] [address] [id number] [place] [address]- 0841 Feb, [facility] [place] [facility] [address] [id number] [place] [address]- 8996 January, [facility] [place] [facility] [address] [id number] [place] [address]- 8380 January, [facility] [place] [facility] [address] [id number] [place] [address]- 4648 January, [facility] [place] [facility] [address] [id number] [place] [address]- 4038 January, [facility] [place] [facility] [address] [id number] [place] [address]- 0624 January, [facility] [place] [facility] [address] [id number] [place] [address]- 5603 January, [facility] [place] [facility] [address] [id number] [place] [address]- 1511 Dec, [facility] [facility] [address] [id number] [place] [address]- 7370 Dec, [facility] [place] [facility] [address] [id number] [place] [address]- 8777 Dec, [facility] [place] [facility] [address] [id number] [place] [address]- 2363 Dec, [facility] [place] [facility] [address] [id number] [place] [address]- 9586 Dec, [facility] [place] [facility] [address] [id number] [place] [address]- 0936 27 Nov, 2011 [facility] [place] [facility] [address] [id number] [place] [address]- 5125 14 Nov, 2011 [facility] [place] [facility] [address] [id number] [place] [address]- 3515 12 Nov, 2011 [facility] [place] [facility] [address] [id number] [place] [address]- 6384 Nov, [facility] [address] [id number] [place] [address]- 8034 Oct, [facility] [place] [facility] [address] [id number] [place] [address]- 3126 Oct, [facility] [place] [facility] [address] [id number] [place] [address]- 6326 24 Oct, 2011 [facility] [place] [facility] [address] [id number] [place] [address]- 3826 Oct, [facility] [place] [facility] [address] [id number] [place] [address]- 9986 Oct, [facility] [place] [facility] [address] [id number] [place] [address]- 8447 Sep, [facility] [place] [facility] [address] [id number] [place] [address]- 6262 Sep, [facility] [place] [facility] [address] [id number] [place] [address]- 2140 Sep, [facility] [place] [facility] [address] [id number] [place] [address]- 2958 Sep, [facility] [place] [facility] [address] [facility] [id number] [place] [address]- 8503 Sep, [facility] [place] [facility] [address] [id number] [place] [address]- 4667 Sep, [facility] [place] [facility] [address] [id number] [place] [address]- 6732 Aug, [facility] [place] [facility] [address] [id number] [place] [address]- 1183 Aug, [facility] [place] [facility] [address] [id number] [place] [address]- 7671 Aug, [facility] [place] [facility] [address] [id number] [place] [address]- 0198 Jul, [facility] [place] [facility] [address] [id number] [place] [address]- 0583 Jul, [facility] [place] [facility] [address] [id number] [place] [address]- 0992 Jul, [facility] [place] [facility] [address] [id number] [place] [address]- 8646 Jul, [facility] [place] [facility] [address] [id number] [place] [address] Jun, [facility] [place] [facility] [address] [id number] [place] [address] Jun, [facility] [place] [facility] [address] [id number] [place] [address] Jun, [facility] [place] [facility] [address] [id number] [place] [address] Jun, [facility] [place] [facility] [address] [id number] [place] [address] Jun, [facility] [place] [facility] [address] [id number] [place] [address] Jun, [facility] [place] [facility] [address] [id number] [place] [address] Mar, [facility] [place] [facility] [address] [id number] [place] [address] Dec, [facility] [place] [facility] [address] [id number] [place] [address] Dec, [facility] [place] [facility] [address] [id number] [place] [address] Nov, [facility] [place] [facility] [address] [id number] [place] [address] 16 Nov, 2010 [facility] [place] [facility] [address] [id number] [place] [address] Sep, [facility] [place] [facility] [address] [id number] [place] [address] Aug, [facility] [address] [id number] [place] [address] 29 Aug, 2010 [facility] [place] [facility] [address] [id number] [place] [address] 2546 29 Aug, 2010 [facility] [place] [facility] [address] [id number] [place] [address]34 29 Aug, 2010 [facility] [place] [facility] [address] [id number] [place] [address]46 27 Aug, 2010 [facility] [place] [facility] [address] [id number] [place] [address] 14 Aug, 2010 [facility] [place] [facility] [address] [id number] [place] [address] 08 Aug, 2010 [facility] [place] [facility] [address] [facility] [place] [id number] [place] [address] 08 Aug, 2010 [facility] [place] [facility] [address] [id number] [place] [address] 07 Aug, 2010 [facility] [place] [facility] [address] [id number] [place] [address] 06 Aug, 2010 [facility] [place] [facility] [address] [facility] [place] [id number] [place] [address] 06 Aug, 2010 [facility] [place] [facility] [address] [id number], [place] [address] Aug, [facility] [place] [facility] [address] [id number], [place] [address]48 30 Jul, 2010 [facility] [place] [facility] [address] [id number] [place] [address] 2546 30 Jul, 2010 [facility] [place] [facility] [address] [id number], [place] [address] 30 Jul, 2010 [facility] [place] [facility] [address] [facility] [place] [id number] [place] [address] 17 Jul, 2010 [facility] [place] [facility] [address] [id number] [place] [address] 1463 08 Jul, 2010 [facility] [address] [id number] [place] [address] 16[address] Jul, [facility] [place] [facility] [address] [id number] [place] [address] 4598 24 Jun, 2010 [facility] [place] [facility] [address] [id number] [place] [address] Jun, [facility] [place] [facility] [address] [id number] [place] [address] 2032 Jun, [facility] [place] [facility] [address] [id number] [place] [address] 4214 Jun, [facility] [place] [facility] [address] [id number] [place] [address] 16 Apr, 2010 [facility] [place] [facility] [address] [id number] [place] [address] Mar, [facility] [place] [facility] [address] [id number] [place] [address] 240[address] Feb, [facility] [place] [facility] [address] [id number] [place] [address] January, [facility] [place] [facility] [address] [facility] [place] [id number] [place] [address] 15 Dec, 2009 [facility] [place] [facility] [address] [id number] [place] [address] 2520 Nov, [facility] [place] [facility] [address] [id number] [place] [address]808 Aug, [facility] [place] [facility] [address] [id number] [place] [address] 4[address] Aug, [facility] [place] [facility] [address] [facility] [place] [id number] [place] [address] 07 Aug, 2009 [facility] [place] [facility] [address] [facility] [place] [place] [id number], [place] [address] Jul, [facility] [place] [facility] [id number], [place] [address] Jul, [facility] [id number] [address] [address] Jul, [facility] [id number], [place] [address] Jun, [facility] [id number] [place] [address] Jun, [facility] [id number], [place] [address] Jun, [facility] [id number] [place] [address]- 8717 Jun, [facility] [address] [id number], [place] [address] Jun, [facility] [address] [id number], [place] [address]163 Jun, [facility] [id number] [address] Apr, [facility] [id number], [place] [address] Apr, [facility] [id number], [place] [address] Feb, [facility] [id number], [place] [address] January, [facility] [id number], [place] [address] Dec, IMMUNIZATIONS No Known Immunizations SOCIAL HISTORY Never Assessed REASON FOR VISIT f/u, Depression. PLAN OF CARE Activity Details Follow Up 2 Weeks Reason:depression VITAL SIGNS MEDICATIONS Unknown Medications RESULTS No Results PROCEDURES Procedure Date Ordered Result Body Site [facility] VISIT MENTAL HEALTH ESTAB PT Apr 26, 2017 Psychotherapy, patient &/family, 45 minutes, established patient Apr 26, 2017 INSTRUCTIONS MEDICATIONS ADMINISTERED No Known Medications MEDICAL (GENERAL) HISTORY Type Description Date Medical History type II diabetes Medical History coronary artery disease stress test 01/5015 Medical History chronic obstructive pulmonary disease (COPD) Medical History gastroesophageal reflux disease (GERD) Medical History acute renal failure Medical History erectile dysfunction Medical History hyperlipidemia Medical History obesity Medical History skin cancer-basal cell R orthodoxy (removed) Medical History Arthritis Medical History degenerative [...] History resection of skin cancer from Right orthodoxy Surgical History Biopsy of Lung Bilateral/Left lung lymph node 09/2016 Surgical History Bone Marrow Biopsy Surgical History port in the right chest wall 12/2016 Hospitalization History [facility] low potassium, low magnesium, chest painina 01/2015 Hospitalization History inability to urinate 09/16/15 Hospitalization History [facility] health early Hospitalization History hyperkalemia 10/2017 Hospitalization History fluid in lung
[2018-08-08 12:45] VITALS: BP 140/58
--- OUTSIDE RECORDS SUMMARY | 2018-08-08 12:45 | XMS REPORT ---
Author Author ROSELINE LUIS Organization [facility] Address [address] [place] [address] Care Team Providers Care Appraiser Timber Name Role Phone ROSELINE LUIS Unavailable PROBLEMS Type Condition ICD9-CM Code PER16-RR Code Onset Dates Condition Status SNOMED Code Problem Chronic lymphocytic leukemia C91.10 Active 80812527 Problem Insomnia, unspecified type G47.00 Active 883289000 Problem Lymphocytosis D72.820 Active 26242023 Problem Anxiety F41.9 Active 56253120 Problem Eye exam abnormal R93.8 Active 498395489 Problem Morbid obesity E66.01 Active 691134983 Problem Diabetic polyneuropathy associated with type 2 diabetes mellitus E11.42 Active 32526349 Problem Essential hypertension I10 Active 23847928 Problem Falling R29.6 Active 072269880 Problem 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 Active 581879606 Problem Cough R05 Active 84902590 Problem Dysuria R30.0 Active 77844225 Problem Eustachian tube dysfunction, unspecified laterality H69.80 Active 96735006 Problem Bilateral primary osteoarthritis of knee M17.0 Active 459247624 Problem Polyneuropathy associated with underlying disease G63 Active 341988227 Problem Anemia of chronic illness D63.8 Active 424304695 Problem Retinal edema H35.81 Active 8762757 Problem DM neuro manif type II E11.49 Active 02048040 Problem Diabetes E11.9 Active 65568590 Problem Hypokalemia E87.6 Active 75084874 Problem Benign prostatic hyperplasia with lower urinary tract symptoms, unspecified morphology N40.1 Active 941526354 Problem Reactive airway disease J45.909 Active 500682722991 Problem Bipolar I disorder, most recent episode (or current) mixed, moderate F31.62 Active 55354244 Problem Chronic pain G89.29 Active 75494353 Problem Leukocytosis D72.829 Active 441886061 ALLERGIES No Information ENCOUNTERS Encounter Location Date Diagnosis [facility] [address], [place] [address] Mar, [facility] [address] [place] [address] Mar, [facility] [address], [place] [address] 2580 Mar, [facility] [address], [place] [address] Mar, [facility] [address], [place] [address] Feb, [facility] [address], [place] [address] Feb, [facility] [address], [place] [address] Feb, Bipolar I disorder, most recent episode (or current) mixed, moderate F31.62 [facility] [address], [place] [address] Feb, [facility] [address], [place] [address] January, [facility] [address], [place] [address] 3[address] January, Chronic pain G89.29 [facility] [address], [place] [address] January, Bipolar I disorder, most recent episode (or current) mixed, moderate F31.62 [facility] [id number] [address] January, Bipolar I disorder, most recent episode (or current) mixed, moderate F31.62 [facility] [id number] [address] 3[address] Dec, Bipolar I disorder, most recent episode (or current) mixed, moderate F31.62 and BMI 50.0-59.9, adult Z68.43 [facility] [id number] [place] [address] 39711- 7254 Dec, Bipolar I disorder, most recent episode (or current) mixed, moderate F31.62 [facility] [id number] [place] [address] 82880- 6755 Dec, Chronic pain G89.29 [facility] [address] [address]- 4872 Dec, DM neuro manif type II E11.49 ; Right flank pain R10.9 ; retirement 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 Z79.891 ; Encounter for medication monitoring Z51.81 and BMI 50.0-59.9, adult Z68.43 [facility] [id number] [place] [address] 24014- 6842 Dec, Bipolar I disorder, most recent episode (or current) mixed, moderate F31.62 [facility] [address] 93272- 0563 Nov, Bipolar I disorder, most recent episode (or current) mixed, moderate F31.62 [facility] [id number] [place] [address] 61078- 7656 Nov, Chronic pain G89.29 [facility] [id number] [place] [address] 35406- 1835 Nov, Bipolar I disorder, most recent episode (or current) mixed, moderate F31.62 [facility] [id number] [place] [address] 74744- 3198 Nov, Hypokalemia E87.6 [facility] [id number] [place] [address] 37217- 6564 Nov, Bipolar I disorder, most recent episode (or current) mixed, moderate F31.62 [facility] [id number] [place] [address] 99826- 4965 Oct, Chronic pain G89.29 [facility] [address] [place] [address] 5107 Oct, BMI 50.0-59.9, adult Z68.43 and Bipolar I disorder, most recent episode (or current) mixed, moderate F31.62 [facility] [id number] [place] [address] 56566- 7575 Oct, Bipolar I disorder, most recent episode (or current) mixed, moderate F31.62 [facility] [id number] [place] [address] 95315- 4832 Oct, [facility] [id number] [place] [address] 58913- 3235 Oct, Hypokalemia E87.6 [facility] [id number] [place] [address] 17419- 4780 Oct, DM neuro manif type II E11.49 [facility] [id number] [place] [address] 47529- 6189 Oct, Bipolar I disorder, most recent episode (or current) mixed, moderate F31.62 [facility] [id number] [place] [address] 42813- 9164 Oct, Bipolar I disorder, most recent episode (or current) mixed, moderate F31.62 [facility] [id number] [place] [address] 08272- 9541 Oct, Hyperkalemia E87.5 ; Falling R29.6 ; BMI 50.0-59.9, adult Z68.43 and Acute left ankle pain M25.572 [facility] [id number] [place] [address] 48598- 4109 Oct, DM neuro manif type II E11.49 [facility] [id number] [place] [address] 47961- 4254 Oct, [facility] [id number] [place] [address] 76010- 5355 Sep, Chronic pain G89.29 [facility] [id number] [place] [address] 43078- 8698 Sep, [facility] [id number] [place] [address] 46660- 3221 Sep, Bilateral primary osteoarthritis of knee M17.[address] [address]- 3597 Sep, Generalized edema R60.1 [facility] [address] 33966- 8837 Sep, Bipolar I disorder, most recent episode (or current) mixed, moderate F31.62 [facility] [address] 45859- 9601 Sep, Hypoxia R09.02 ; Other hypervolemia E87.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 ; Anemia of chronic illness D63.8 and BMI 50.0- 59.9, adult Z68.43 [facility] [id number] [place] [address] 09975- 8076 Sep, [facility] [id number] [place] [address] 38998- 0058 Sep, Bipolar I disorder, most recent episode (or current) mixed, moderate F31.62 [facility] [id number] [place] [address] 78823- 9494 Aug, Chronic pain G89.29 [facility] [id number] [place] [address] 79621- 7569 Aug, Generalized edema R60.1 [facility] [id number] [place] [address] 12846- 5520 Aug, [facility] [id number] [place] [address] 67318- 6889 Aug, [facility] [address], [place] [address] 8063 14 Aug, 2017 Bipolar I disorder, most recent episode (or current) mixed, moderate F31.62 [facility] [address] [place] [address] 27100- 8320 07 Aug, 2017 Bipolar I disorder, most recent episode (or current) mixed, moderate F31.62 [facility] [id number] [place] [address] 06169- 1125 04 Aug, 2017 Chronic pain G89.29 [facility] [id number] [place] [address] 74816- 3758 30 Jul, 2017 Bipolar I disorder, most recent episode (or current) mixed, moderate F31.62 [facility] [address] [place] [address] 20036- 4989 Jul, Bipolar I disorder, most recent episode (or current) mixed, moderate F31.62 and BMI 60.0-69.9, adult Z68.44 [facility] [address] [place] [address] 76645- 6666 16 Jul, 2017 Bipolar I disorder, most recent episode (or current) mixed, moderate F31.62 [facility] [address] [place] [address] 14527- 5358 Jul, Chronic pain G89.29 [facility] [id number] [place] [address] 69399- 1150 Jul, Bipolar I disorder, most recent episode (or current) mixed, moderate F31.62 [facility] [address] [place] [address] 59713- 4870 18 Jun, 2017 Polyneuropathy associated with underlying disease G63 and Diabetes E11.9 [facility] [id number] [place] [address] 32358- 0240 16 Jun, 2017 Bipolar I disorder, most recent episode (or current) mixed, moderate F31.62 [facility] [id number] [place] [address] 11952- 4011 Jun, Chronic pain G89.29 [facility] [address] [place] [address] 680573- 7558 27 May, 2017 Bipolar I disorder, most recent episode (or current) mixed, moderate F31.62 [facility] [address] [place] [address] 18901- 1699 21 May, 2017 Bipolar I disorder, most recent episode (or current) mixed, moderate F31.62 [facility] [id number] [place] [address] 25533- 7037 20 May, 2017 Diabetic polyneuropathy associated with type 2 diabetes mellitus E11.42 [facility] [id number] [place] [address] 41810- 4629 18 May, 2017 Bipolar I disorder, most recent episode (or current) mixed, moderate F31.62 [facility] [id number] [place] [address] 93304- 3399 13 May, 2017 Bipolar I disorder, most recent episode (or current) mixed, moderate F31.62 [facility] [address] [place] [address] 53968- 1646 May, Chronic pain G89.29 [facility] [address] [place] [address] 88345- 1490 Apr, Bipolar I disorder, most recent episode (or current) mixed, moderate F31.62 [facility] [id number] [place] [address] 75707- 3275 Apr, [facility] [address] [place] [address] 02257- 2644 Apr, Chronic pain G89.29 and DM neuro manif type II E11.49 [facility] [address] [place] [address] 15549- 4321 Apr, [facility] [id number] [place] [address] 86361- 5690 Apr, Bipolar I disorder, most recent episode (or current) mixed, moderate F31.62 [facility] [address], [place] [address]- 3141 Apr, Chronic pain G89.29 [facility] [address] [place] [address] 13180- 0136 Apr, Iliotibial band syndrome, left M76.32 [facility] [id number] [place] [address] 655239- 8637 Apr, Bipolar I disorder, most recent episode (or current) mixed, moderate F31.62 [facility] [id number] [place] [address] 83092- 6701 Mar, Bipolar I disorder, most recent episode (or current) mixed, moderate F31.62 [facility] [id number] [place] [address] 98947- 9927 Mar, Bipolar I disorder, most recent episode (or current) mixed, moderate F31.62 [facility] [address] [place] [address] 59794- 6537 Mar, [facility] [id number] [place] [address] 16745- 3037 Mar, Bipolar I disorder, most recent episode (or current) mixed, moderate F31.62 [facility] [address] [place] [address] 32303- 8404 Mar, Chronic pain G89.29 [facility] [address] [place] [address] 90099- 0366 Mar, Bipolar I disorder, most recent episode (or current) mixed, moderate F31.62 [facility] [id number] [place] [address] 19351- 2366 Mar, Bipolar I disorder, most recent episode (or current) mixed, moderate F31.62 [facility] [address] [place] [address] 74493- 9952 Mar, Acute pain of left knee M25.562 ; Left hip pain M25.552 ; Generalized edema R60.1 and Tongue swelling R22.0 [facility] [id number] [place] [address] 87885- 5446 Mar, [facility] [id number] [place] [address] 77287- 5027 Feb, Chronic pain G89.29 [facility] [id number] [place] [address] 39532- 8118 Feb, Diabetes E11.9 [facility] [id number] [place] [address] 60008- 6075 January, Chronic pain G89.29 [facility] [id number] [place] [address] 44062- 4676 January, [facility] [id number] [place] [address] 11473- 2687 January, Bipolar I disorder, most recent episode (or current) mixed, moderate F31.62 [facility] [id number] [place] [address] 45644- 0055 Dec, Bipolar I disorder, most recent episode (or current) mixed, moderate F31.62 [facility] [id number] [place] [address] 01595- 9276 Dec, Chronic pain G89.29 [facility] [id number] [place] [address] 44849- 2347 Dec, Bipolar I disorder, most recent episode (or current) mixed, moderate F31.62 [facility] [address] [place] [address] 48127- 7604 Dec, Diabetes E11.9 ; Essential hypertension I10 ; Chronic pain G89.29 and Morbid obesity E66.01 [facility] [id number] [place] [address] 13278- 7637 Dec, [facility] [id number] [place] [address] 66767- 4536 Dec, Bipolar I disorder, most recent episode (or current) mixed, moderate F31.62 [facility] [address], [place] [address]- 8886 Dec, Bipolar I disorder, most recent episode (or current) mixed, moderate F31.62 [facility] [address], [place] [address]- 6886 Nov, Chronic pain G89.29 [facility] [address] [place] [address] 2546 Nov, Bipolar I disorder, most recent episode (or current) mixed, moderate F31.62 [facility] [address], [place] [address]- 0296 Nov, [facility] [address], [place] [address]- 5126 Nov, Bipolar I disorder, most recent episode (or current) mixed, moderate F31.62 [facility] [address], [place] [address]- 6953 Nov, Bipolar I disorder, most recent episode (or current) mixed, moderate F31.62 [facility] [address], [place] [address]- 5696 Nov, [facility] [address] [place] [address]- 2116 Nov, [facility] [address] [place] [address] 2546 Nov, [facility] [address], [place] [address]- 5966 Oct, Chronic pain G89.29 [facility] [address] [place] [address]- 2546 Oct, Bipolar I disorder, most recent episode (or current) mixed, moderate F31.62 [facility] [id number] [place] [address] 46961- 6850 Oct, [facility] [id number] [place] [address] 35655- 2163 Oct, Chronic pain G89.29 ; Diabetes E11.9 ; Anxiety F41.9 and 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 [facility] [id number] [place] [address] 76264- 9296 Oct, [facility] [id number] [place] [address] 84510- 2501 Oct, Diabetes E11.9 [facility] [id number] [place] [address] 02178- 3680 Oct, Bipolar I disorder, most recent episode (or current) mixed, moderate F31.62 [facility] [id number] [place] [address] 82339- 4236 Sep, Chronic pain G89.29 [facility] [id number] [place] [address] 90521- 1851 Sep, Chronic pain G89.29 [facility] [id number] [place] [address] 48185- 2829 Aug, Chronic pain G89.29 [facility] [id number] [place] [address] 05335- 8653 Jul, [facility] [id number] [place] [address] 78191- 2543 Jul, Diabetes E11.9 [facility] [address] [place] [address] 20604- 2548 Jul, Chronic pain G89.29 [facility] [id number] [place] [address] 69584- 9314 Jul, Bipolar I disorder, most recent episode (or current) mixed, moderate F31.62 [facility] [id number] [place] [address] 59363- 6646 Jun, Bipolar I disorder, most recent episode (or current) mixed, moderate F31.62 [facility] [id number] [place] [address] 04452- 4513 Jun, [facility] [id number] [place] [address] 02203- 2926 Jun, Bipolar I disorder, most recent episode (or current) mixed, moderate F31.62 [facility] [id number] [place] [address] 56352- 0784 May, Insomnia, unspecified type G47.00 [facility] [address] 75110- 1235 May, Bipolar I disorder, most recent episode (or current) mixed, moderate F31.62 [facility] [id number] [place] [address] 72246- 6096 May, [facility] [address] 08749- 3926 May, Bipolar I disorder, most recent episode (or current) mixed, moderate F31.62 [facility] [id number] [place] [address] 92789- 5338 May, Diabetes E11.9 and Essential hypertension I10 [facility] [id number] [place] [address] 80974- 4218 Apr, Chronic pain G89.29 [facility] [address] 06774- 7594 Apr, Bipolar I disorder, most recent episode (or current) mixed, moderate F31.62 [facility] [id number] [place] [address] 39155- 2905 Apr, [facility] [id number] [place] [address] 05769- 6253 Apr, [facility] [id number] [place] [address] 97025- 9805 Mar, Chronic pain G89.29 ; Headache, unspecified headache type R51 ; Neuropathy G62.9 ; Pain of right hip joint M25.551 and Essential hypertension I10 [facility] [id number] [place] [address] 35083- 0343 Mar, Chronic pain G89.29 [facility] [id number] [place] [address] 91350- 5170 Mar, Bipolar I disorder, most recent episode (or current) mixed, moderate F31.62 [facility] [id number] [place] [address] 07670- 6847 Feb, Bipolar I disorder, most recent episode (or current) mixed, moderate F31.62 and Insomnia, unspecified type G47.00 [facility] [id number] [place] [address] 86720- 6652 Feb, Chronic pain G89.29 [facility] [id number] [place] [address] 31791- 9730 Feb, Bipolar I disorder, most recent episode (or current) mixed, moderate F31.62 [facility] [id number] [place] [address] 41399- 9886 January, Bipolar I disorder, most recent episode (or current) mixed, moderate F31.62 [facility] [id number] [place] [address] 93412- 9578 January, Chronic pain G89.29 [facility] [id number] [place] [address] 45397- 9529 January, Chronic pain G89.29 and Essential hypertension I10 [facility] [id number] [place] [address] 35057- 2628 January, Bipolar I disorder, most recent episode (or current) mixed, moderate F31.62 [facility] [id number] [place] [address] 09572- 2488 Dec, [facility] [address] [place] [address]- 5094 Dec, [facility] [id number] [place] [address] 03540- 0078 Dec, [facility] [id number] [place] [address] 32593- 8544 Dec, [facility] [id number] [place] [address] 63612- 1305 Nov, Reactive airway disease J45.909 [facility] [id number] [place] [address] 39163- 6220 Nov, [facility] [id number] [place] [address] 25686- 2003 Nov, [facility] [id number] [place] [address] 49457- 9144 Nov, [facility] [id number] [place] [address] 79359- 6174 Nov, [facility] [id number] [place] [address] 65684- 1631 Nov, Onychomycosis B35.1 ; Hammertoe M20.40 ; [place] or callus L84 and DM neuro manif type II E11.49 [facility] [id number] [place] [address] 54012- 8724 Nov, Chronic pain G89.29 ; Leukocytosis D72.829 and Diabetes E11.9 [facility] [id number] [place] [address] 20399- 0843 Nov, [facility] [id number] [place] [address] 63373- 3464 Oct, Bronchitis J40 [facility] [id number] [place] [address] [id number]- 2730 Oct, [facility] [id number] [place] [address] 37990- 0358 Oct, [facility] [id number] [place] [address] 99065- 8225 Oct, Mastoiditis, unspecified laterality H70.90 and Type 2 diabetes mellitus with complication E11.8 [facility] [id number] [place] [address] 90638- 4155 Sep, [facility] [id number] [place] [address] 56481- 3755 Sep, Dysuria R30.0 ; Cough R05 ; Benign prostatic hyperplasia with lower urinary tract symptoms, unspecified morphology N40.1 ; Hypokalemia E87.6 and Eustachian tube dysfunction, unspecified laterality H69.80 [facility] [id number] [place] [address] 90333- 7218 Sep, Moderate mixed bipolar I disorder F31.62 [facility] [id number] [place] [address] 41258- 5319 Sep, Hypokalemia E87.6 [facility] [id number] [place] [address] 77377- 3106 Sep, [facility] [facility] [id number] [place] [address] 61036- 0554 Sep, Upper respiratory tract infection, unspecified type J06.9 [facility] [id number] [place] [address] 73573- 8299 Aug, [facility] [id number] [place] [address] 16145- 0941 Aug, Dysuria R30.0 [facility] [id number] [place] [address] 94785- 5792 Aug, [facility] [id number] [place] [address] 71087- 5084 Jul, [facility] [id number] [place] [address] 05271- 9588 Jul, [facility] [address], [place] [address] Jul, [facility] [address], [place] [address] 9748 Jul, [facility] [address], [place] [address] 4731 Jun, [facility] [id number] [place] [address] 741215- 4729 Jun, [facility] [address], [place] [address] 5534 Jun, [facility] [id number] [place] [address] 86138- 9503 May, [facility] [address], [place] [address] 1329 May, Bipolar I disorder, most recent episode (or current) mixed, moderate 296.62 [facility] [address], [place] [address] 8609 May, [facility] [address], [place] [address] 8326 May, Bipolar I disorder, most recent episode (or current) mixed, moderate 296.62 and Major depressive disorder, recurrent episode, severe, specified as with psychotic behavior 296.34 [facility] [address], [place] [address] 8762 May, Bipolar I disorder, most recent episode (or current) mixed, moderate 296.62 [facility] [address], [place] [address]- 6460 May, [facility] [id number] [address] [address] Apr, [facility] [address], [place] [address]- 4615 Apr, [facility] [id number] [address] 9665 Apr, Unspecified disorder of kidney and ureter 593.9 and Diabetes mellitus type 2, uncontrolled 250.02 [facility] [address], [place] [address]- 3931 Apr, [facility] [address], [place] [address]- 2665 Apr, [facility] [id number] [place] [address] 94563- 2058 Apr, [facility] [id number] [place] [address] 19257- 5875 Apr, [facility] [id number] [place] [address] 45978- 0273 Apr, Diabetes mellitus type II, uncontrolled 250.02 [facility] [id number] [place] [address] 61937- 9833 Apr, [facility] [id number] [place] [address] 89131- 2474 Mar, [facility] [id number] [place] [address] 43354- 7423 Mar, [facility] [address], [place] [address]- 9528 Mar, [facility] [address], [place] [address]- 5654 Mar, Major depressive disorder, recurrent episode, severe, specified as with psychotic behavior 296.34 and Bipolar I disorder, most recent episode (or current) mixed, moderate 296.62 [facility] [id number] [place] [address] 98017- 9237 Mar, Diabetes 250.00 ; Anuria 788.5 ; Nausea and vomiting 787.01 and Diarrhea 787.91 [facility] [id number], [place] [address]- 3625 Mar, Diabetes 250.00 [facility] [address], [place] [address]- 7972 Mar, [facility] [address], [place] [address]- 2551 Mar, Diabetes 250.00 [facility] [address], [place] [address]- 4145 Mar, [facility] [id number] [place] [address] 33711- 0227 Mar, [facility] [address], [place] [address]- 7954 Mar, [facility] [id number] [place] [address] 65247- 0896 Mar, [facility] [address], [place] [address]- 7908 Mar, Bipolar I disorder, most recent episode (or current) mixed, moderate 296.62 and Major depressive disorder, recurrent episode, severe, specified as with psychotic behavior 296.34 [facility] [address], [place] [address]- 9509 Mar, Magnesium deficiency 275.2 ; Hypokalemia 276.8 ; Nausea & vomiting 787.01 and Diabetes mellitus type 2, uncontrolled 250.02 [facility] [address], [place] [address]- 0614 Feb, [facility] [address], [place] [address]- 4645 Feb, Bipolar I disorder, most recent episode (or current) mixed, moderate 296.62 [facility] [address], [place] [address]- 9841 Feb, Nausea and vomiting 787.01 ; Left elbow pain 719.42 ; Anuria 788.5 and Diabetes 250.00 [facility] [address], [place] [address]- 0308 Feb, [facility] [id number] [address]- 1815 Feb, Hypopotassemia 276.8 and Hypokalemia 276.8 [facility] [id number] [place] [address] 55645- 8570 Feb, Hypopotassemia 276.8 and Hypokalemia 276.8 [facility] [id number] [place] [address] 07511- 0502 Feb, Seborrheic keratoses 702.19 [facility] [id number] [place] [address] 86118- 3087 Feb, Hypopotassemia 276.8 and Low magnesium levels 275.2 [facility] [id number] [place] [address] 29046- 1584 January, [facility] [id number] [place] [address] 33770- 1442 January, [facility] [id number] [place] [address] 87068- 4066 January, [facility] [id number] [place] [address] 52023- 9238 January, Scalp lesion 709.9 [facility] [id number] [place] [address] 08291- 3374 January, [facility] [id number] [place] [address] 42526- 6027 Dec, Tear of medial cartilage or meniscus of knee, current 836.0 and 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 [facility] [address], [place] [address]- 1086 Dec, [facility] [id number] [place] [address] 51903- 2993 Dec, [facility] [address], [place] [address]- 6735 Dec, Squamous cell carcinoma, 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 [facility] [address] [id number] [place] [address]- 5550 14 Dec, 2014 [facility] [place] [facility] [address] [id number] [place] [address]- 8442 Dec, [facility] [place] [facility] [address] [id number] [place] [address]- 0889 Nov, [facility] [place] [facility] [address] [id number] [place] [address]- 9188 Nov, [facility] [place] [facility] [address] [id number] [place] [address]- 3236 Nov, [facility] [place] [facility] [address] [id number] [place] [address]- 0995 Nov, [facility] [place] [facility] [address] [facility] [id number] [place] [address]- 3880 Nov, [facility] [place] [facility] [address] [id number] [place] [address]- 9766 Nov, [facility] [place] [facility] [address] [id number] [place] [address]- 1289 Nov, [facility] [place] [facility] [address] [id number] [place] [address]- 6016 Nov, [facility] [place] [facility] [address] [facility] [id number] [place] [address]- 6979 Nov, [facility] [place] [facility] [address] [id number] [place] [address]- 5997 Nov, [facility] [place] [facility] [address] [id number] [place] [address]- 3511 Nov, [facility] [place] [facility] [address] [id number] [place] [address]- 0950 Nov, [facility] [place] [facility] [address] [id number] [place] [address]- 6722 Oct, [facility] [place] [facility] [address] [id number], [place] [address]- 2360 Oct, 2014 [facility] [place] [facility] [address] [id number] [place] [address]- 1273 Oct, 2014 [facility] [place] [facility] [address] [id number] [place] [address]- 3177 Oct, 2014 [facility] [place] [facility] [address] [id number] [place] [address]- 8800 Oct, 2014 [facility] [place] [facility] [address] [id number] [place] [address]- 8165 Oct, 2014 [facility] [place] [facility] [address] [id number] [place] [address]- 9886 Oct, 2014 [facility] [place] [facility] [address] [id number] [place] [address]- 7499 Oct, 2014 [facility] [place] [facility] [address] [facility] [id number] [place] [address]- 4774 Oct, 2014 [facility] [place] [facility] [address] [facility] [id number], [place] [address]- 3756 Sep, [facility] [place] [facility] [address] [id number] [place] [address]- 3378 Sep, [facility] [place] [facility] [address] [facility] [id number], [place] [address]- 5534 Sep, [facility] [place] [facility] [address] [facility] [id number], [place] [address]- 5103 Sep, [facility] [place] [facility] [address] [id number], [place] [address]- 0618 Sep, [facility] [place] [facility] [address] [id number], [place] [address]- 2093 Sep, [facility] [place] [facility] [address] [facility] [id number], [place] [address]- 5757 Sep, [facility] [place] [facility] [address] [id number], [place] [address]- 8945 Sep, [facility] [place] [facility] [address] [id number] [place] [address]- 2349 Sep, [facility] [place] [facility] [address] [id number] [place] [address]- 8928 Sep, [facility] [place] [facility] [address] [id number] [place] [address]- 0026 08 Sep, 2014 [facility] [place] [facility] [address] [id number] [place] [address]- 8682 Sep, [facility] [place] [facility] [address] [id number] [place] [address]- 2743 Sep, [facility] [place] [facility] [address] [id number] [place] [address]- 3678 Sep, [facility] [place] [facility] [address] [id number] [place] [address]- 3627 Sep, [facility] [place] [facility] [address] [id number] [place] [address]- 1846 Sep, [facility] [place] [facility] [address] [id number] [place] [address]- 3800 Aug, [facility] [place] [facility] [address] [id number] [place] [address]- 4534 Aug, [facility] [place] [facility] [address] [id number] [place] [address]- 7354 Aug, [facility] [place] [facility] [address] [id number] [place] [address]- 4488 31 Aug, 2014 [facility] [place] [facility] [address] [id number] [place] [address]- 6694 31 Aug, 2014 [facility] [place] [facility] [address] [id number] [place] [address]- 1272 31 Aug, 2014 [facility] [place] [facility] [address] [id number] [place] [address]- 7985 17 Aug, 2014 [facility] [place] [facility] [address] [id number] [place] [address]- 6500 Aug, [facility] [address] [id number] [place] [address]- 3759 Aug, [facility] [address] [id number] [place] [address]- 8385 Aug, [facility] [address] [id number] [place] [address]- 4259 Aug, [facility] [place] [address] [place] [id number] Aug, [facility] [address] [id number] [place] [address]- 2068 Aug, [facility] [address] [id number] [place] [address]- 6762 Aug, [facility] [address] [id number] [place] [address]- 7076 Aug, [facility] [address] [id number] [place] [address]- 4739 Aug, [facility] [address] [id number] [place] [address]- 2550 Aug, [facility] [address] [id number] [place] [address]- 8598 Aug, [facility] [address] [id number] [place] [address]- 1030 Aug, [facility] [place] [facility] [address] [id number] [place] [address]- 9275 Aug, [facility] [place] [facility] [address] [id number] [place] [address]- 2251 Aug, [facility] [place] [facility] [address] [id number] [place] [address]- 4766 Aug, [facility] [address] [id number] [place] [address]- 1045 Aug, [facility] [place] [facility] [address] [id number], [place] [address]- 3031 Aug, [facility] [place] [facility] [address] [id number] [place] [address]- 6753 Aug, [facility] [place] [facility] [address] [id number] [place] [address]- 1953 Aug, [facility] [place] [facility] [address] [facility] [id number] [place] [address]- 7945 Aug, [facility] [place] [facility] [address] [id number] [place] [address]- 4041 Aug, [facility] [place] [facility] [address] [id number] [place] [address]- 0290 Aug, [facility] [place] [facility] [address] [id number] [place] [address]- 9529 Aug, [facility] [place] [facility] [address] [facility] [id number] [place] [address]- 0939 Jul, [facility] [place] [facility] [address] [id number] [place] [address]- 5642 Jul, [facility] [place] [facility] [address] [facility] [id number] [place] [address]- 6477 Jul, [facility] [place] [facility] [address] [facility] [id number] [place] [address]- 4038 Jul, [facility] [place] [facility] [address] [id number] [place] [address]- 5253 Jul, [facility] [place] [facility] [address] [id number], [place] [address]- 0325 Jul, [facility] [place] [facility] [address] [id number] [place] [address]- 6587 Jul, [facility] [place] [facility] [address] [facility] [id number] [place] [address]- 3500 Jul, [facility] [place] [facility] [address] [facility] [id number] [place] [address]- 8121 Jul, [facility] [place] [facility] [address] [id number] [place] [address]- 5145 Jul, [facility] [place] [facility] [address] [id number] [place] [address]- 7109 Jun, [facility] [place] [facility] [address] [id number] [place] [address]- 6977 Jun, [facility] [place] [facility] [address] [id number] [place]999 Jun, [facility] [place] [facility] [address] [id number] [place] [address]- 6233 Jun, [facility] [place] [facility] [address] [id number] [place] [address]- 6883 Jun, [facility] [place] [facility] [address] [id number] [place] [address]- 3887 Jun, [facility] [place] [facility] [address] [id number] [place] [address]- 8498 Jun, [facility] [place] [facility] [address] [id number] [place] [address]- 8976 Jun, [facility] [place] [facility] [address] [id number] [place] [address]- 6376 Jun, [facility] [place] [facility] [address] [id number] [place] [address]- 1856 Jun, [facility] [place] [facility] [address] [id number] [place] [address]- 1032 29 May, 2014 [facility] [place] [facility] [address] [id number] [place] [address]- 8329 29 Sep2013 [facility] [place] [facility] [address] [id number] [place] [address]- 6683 26 Sep, 2013 [facility] [place] [facility] [address] [id number] [place] [address]- 9433 26 May, 2013 [facility] [place] [facility] [address] [id number] [place] [address]- 6394 17 Sep, 2013 [facility] [place] [facility] [address] [id number] [place] [address]- 0644 17 May, 2013 [facility] [place] [facility] [address] [id number] [place] [address]- 6056 15 May, 2013 [facility] [place] [facility] [address] [id number] [place] [address]- 7056 15 May, 2013 [facility] [place] [facility] [address] [id number] [place] [address]- 5110 15 May, 2013 [facility] [place] [facility] [address] [id number] [place] [address]- 5778 15 May, 2013 [facility] [place] [facility] [address] [id number] [place] [address]- 9788 10 May, 2013 [facility] [place] [facility] [address] [id number] [place] [address]- 7876 10 May, 2013 [facility] [place] [facility] [address] [id number] [place] [address]- 3868 09 May, 2013 [facility] [place] [facility] [address] [id number] [place] [address]- 0455 09 May, 2013 [facility] [place] [facility] [address] [id number] [place] [address]- 5583 04 May, 2014 [facility] [place] [facility] [address] [id number] [place] [address]- 0898 May, 2013 [facility] [place] [facility] [address] [id number] [place] [address]- 6850 Apr, [facility] [place] [facility] [address] [id number] [place] [address]- 0083 Apr, [facility] [place] [facility] [address] [id number] [place] [address]- 5104 Apr, [facility] [place] [facility] [address] [id number] [place] [address]- 0790 Apr, [facility] [place] [facility] [address] [id number] [place] [address]- 6555 Apr, [facility] [place] [facility] [address] [id number] [facility] [place] [address]- 3494 Apr, [facility] [place] [facility] [address] [id number] [place] [address]- 9702 Apr, [facility] [place] [facility] [address] [id number] [place] [address]- 0763 Apr, [facility] [place] [facility] [address] [id number] [place] [address]- 0194 Apr, [facility] [place] [facility] [address] [id number] [place] [address]- 1542 Apr, [facility] [place] [facility] [address] [id number] [place] [address]- 6562 Apr, [facility] [place] [facility] [address] [id number] [place] [address]- 1664 Apr, [facility] [place] [facility] [address] [id number] [place] [address]- 6471 Apr, [facility] [place] [facility] [address] [id number] [place] [address]- 4721 Apr, [facility] [place] [facility] [address] [id number] [place] [address]- 9062 Apr, [facility] [place] [facility] [address] [id number] [place] [address]- 4788 Mar, [facility] [place] [facility] [address] [id number] [place] [address]- 2794 Mar, [facility] [place] [facility] [address] [id number] [place] [address] Mar, [facility] [place] [facility] [address] [id number] [place] [address] Mar, [facility] [place] [facility] [address] [id number] [place] [address] Mar, [facility] [place] [facility] [address] [id number] [place] [address] Mar, 2013 [facility] [place] [facility] [address] [id number] [place] [address] Mar, [facility] [place] [facility] [address] [id number] [place] [address] Mar, 2013 [facility] [place] [facility] [address] [id number] [place] [address] Mar, 2013 [facility] [place] [facility] [address] [id number] [place] [address] Mar, 2013 [facility] [place] [facility] [address] [id number] [place] [address] Mar, 2013 [facility] [place] [facility] [address] [id number] [place] [address] Mar, 2013 [facility] [place] [facility] [address] [id number] [place] [address] Mar, 2013 [facility] [place] [facility] [address] [id number] [place] [address] Mar, 2013 [facility] [place] [facility] [address] [id number] [place] [address] Mar, 2013 [facility] [place] [facility] [address] [id number] [place] [address] Mar, [facility] [place] [facility] [address] [id number] [place] [address] Mar, [facility] [place] [facility] [address] [id number] [place] [address] Mar, [facility] [place] [facility] [address] [id number] [place] [address] Feb, [facility] [place] [facility] [address] [id number] [place] [address] Feb, [facility] [place] [facility] [address] [id number] [place] [address] Feb, [facility] [place] [facility] [address] [id number] [place] [address] Feb, [facility] [place] [facility] [address] [id number] [place] [address] Feb, [facility] [place] [facility] [address] [id number] [place] [address] Feb, [facility] [place] [facility] [address] [id number] [place] [address] Feb, [facility] [place] [facility] [address] [id number] [place] [address] Feb, [facility] [place] [facility] [address] [id number] [place] [address] Feb, [facility] [place] [facility] [address] [id number] [place] [address] Feb, [facility] [place] [facility] [address] [id number] [place] [address] Feb, [facility] [place] [facility] [address] [id number] [place] [address] Feb, [facility] [place] [facility] [address] [id number] [place] [address] Feb, [facility] [place] [facility] [address] [id number] [place] [address] Feb, [facility] [place] [facility] [address] [id number] [place] [address] January, [facility] [place] [facility] [address] [id number] [place] [address] January, [facility] [place] [facility] [address] [id number] [place] [address] January, [facility] [place] [facility] [address] [id number] [place] [address] January, [facility] [place] [facility] [address] [id number] [place] [address] January, [facility] [address] [id number] [place] [address] January, [facility] [place] [facility] [address] [id number] [place] [address] January, [facility] [address] [id number] [place] [address] January, [facility] [address] [id number] [place] [address] January, [facility] [address] [id number] [place] [address]- [address] January, [facility] [address] [id number] [place] [address] January, [facility] [address] [id number] [place] [address] January, [facility] [address] [id number] [place] [address]- [address] January, [facility] [address] [id number] [place] [address] January, [facility] [address] [id number] [place] [address] Dec, [facility] [facility] [address] [id number] [place] [address] Dec, [facility] [place] [facility] [address] [id number] [place] [address] Dec, [facility] [facility] [address] [id number] [place] [address] Dec, [facility] [facility] [address] [id number] [place] [address] Dec, [facility] [facility] [address] [id number] [place] [address]- [address] Dec, [facility] [place] [facility] [address] [id number] [place] [address]- [address] Dec, [facility] [place] [facility] [address] [id number] [place] [address] Dec, [facility] [place] [facility] [address] [address] [id number] [place] [address] Dec, [facility] [place] [facility] [address] [id number] [place] [address] Dec, [facility] [place] [facility] [address] [id number] [place] [address] 6092 Nov, [facility] [place] [facility] [address] [id number] [place] [address] 3051 Nov, [facility] [place] [facility] [address] [id number] [place] [address] 6534 Nov, [facility] [place] [facility] [address] [id number] [place] [address] 3655 Nov, [facility] [place] [facility] [address] [id number] [place] [address] 8180 Nov, [facility] [place] [facility] [address] [id number] [place] [address]- 9567 Nov, [facility] [place] [facility] [address] [id number] [place] [address]- 8833 Nov, [facility] [place] [facility] [address] [id number] [place] [address] 3933 Nov, [facility] [place] [facility] [address] [id number] [place] [address] 8128 Nov, [facility] [place] [facility] [address] [id number] [place] [address]- 7346 Nov, [facility] [place] [facility] [address] [id number] [place] [address] 3204 Oct, [facility] [place] [facility] [address] [id number] [place] [address]- 2038 Oct, [facility] [place] [facility] [address] [id number] [place] [address]- 4886 Oct, [facility] [place] [facility] [address] [id number] [place] [address]- 4636 Oct, [facility] [place] [facility] [address] [id number] [place] [address]- 2079 Oct, [facility] [place] [facility] [address] [id number] [place] [address]- 6611 Oct, [facility] [place] [facility] [address] [id number] [place] [address]- 2541 Oct, [facility] [place] [facility] [address] [id number] [place] [address]- 6778 Oct, [facility] [place] [facility] [address] [facility] [id number] [place] [address] 1958 Oct, [facility] [place] [facility] [address] [id number] [place] [address]- 5569 Oct, [facility] [place] [facility] [address] [facility] [id number] [place] [address]- 9747 Oct, [facility] [place] [facility] [address] [facility] [id number] [place] [address]- 8341 Oct, [facility] [place] [facility] [address] [facility] [id number] [place] [address]- 3765 Oct, [facility] [place] [facility] [address] [id number] [place] [address]- 1244 Oct, [facility] [place] [facility] [address] [id number] [place] [address]- 9048 Sep, [facility] [place] [facility] [address] [id number] [place] [address]- 4336 Sep, [facility] [place] [facility] [address] [id number], [place] [address] 15 Sep, 2013 [facility] [place] [facility] [address] [id number] [place] [address]- 6009 15 Sep, 2013 [facility] [place] [facility] [address] [id number] [place] [address]- 3192 14 Sep, 2013 [facility] [place] [facility] [address] [id number] [place] [address]- 1657 14 Sep, 2013 [facility] [place] [facility] [address] [id number] [place] [address]- 9207 Sep, [facility] [place] [facility] [address] [id number] [place] [address]- 1995 Sep, [facility] [place] [facility] [address] [id number] [place] [address]- 2808 Sep, [facility] [place] [facility] [address] [id number] [place] [address]- 4433 Sep, [facility] [place] [facility] [address] [id number] [place] [address]- 5686 10 Aug, 2013 [facility] [place] [facility] [address] [id number] [place] [address] 9964 Aug, [facility] [place] [facility] [address] [id number] [place] [address]- 4861 Jul, [facility] [place] [facility] [address] [id number], [place] [address] Jul, [facility] [place] [facility] [address] [id number], [place] [address] Jul, [facility] [place] [facility] [address] [id number] [place] [address]- 2395 Jul, [facility] [place] [facility] [address] [id number] [place] [address]- 2838 Jul, [facility] [place] [facility] [address] [id number] [place] [address]- 6556 Jul, [facility] [place] [facility] [address] [id number] [place] [address]- 1456 Jul, [facility] [address] [id number] [place] [address]- 4859 Jul, [facility] [place] [facility] [address] [id number] [place] [address]- 7128 Jul, [facility] [address] [id number] [place] [address]- 9057 08 Jul, 2013 [facility] [place] [facility] [address] [id number] [place] [address]- 9243 Jul, [facility] [address] [id number] [place] [address]- 4269 Jul, [facility] [place] [facility] [address] [id number] [place] [address]- 4488 Jul, [facility] [address] [id number] [place] [address]- 2690 Jul, [facility] [address] [id number] [place] [address]- 6569 Jul, [facility] [place] [facility] [address] [id number] [place] [address]- 7147 Jul, [facility] [place] [facility] [address] [facility] [id number] [place] [address]- 3328 Jul, [facility] [place] [facility] [address] [id number] [place] [address]- 8098 Jul, [facility] [place] [facility] [address] [id number] [place] [address]- 7850 Jul, [facility] [place] [facility] [address] [id number] [place] [address]- 0011 Jun, [facility] [place] [facility] [address] [id number] [place] [address]- 8530 Jun, [facility] [place] [facility] [address] [id number] [place] [address]- 7241 Jun, [facility] [place] [facility] [address] [id number] [place] [address]- 0395 16 Jun, 2012 [facility] [place] [facility] [address] [id number] [place] [address]- 4300 16 Jun, 2012 [facility] [place] [facility] [address] [id number] [place] 16 Jun, 2012 [facility] [place] [facility] [address] [id number] [place] [address]- 8854 10 Jun, 2012 [facility] [place] [facility] [address] [id number] [place] [address]- 6984 10 Jun, 2012 [facility] [place] [facility] [address] [id number] [place] [address]- 4281 Jun, [facility] [place] [facility] [address] [id number] [place] [address]- 1328 Jun, 2012 [facility] [place] [facility] [address] [id number] [place] [address]- 6827 Jun, [facility] [place] [facility] [address] [id number] [place] [address]- 7468 26 May, 2012 [facility] [place] [facility] [address] [id number], [place] [address]- 4159 25 May, 2012 [facility] [place] [facility] [address] [id number], [place] [address]- 1755 19 Sep, 2012 [facility] [place] [facility] [address] [id number], [place] [address]- 2195 17 Sep, 2012 [facility] [place] [facility] [address] [id number], [place] [address]- 5298 11 Sep, 2012 [facility] [place] [facility] [address] [id number], [place] [address]- 7410 10 May, 2012 [facility] [place] [facility] [address] [id number], [place] [address]- 2220 09 May, 2012 [facility] [place] [facility] [address] [id number], [place] [address]- 3256 May, [facility] [place] [facility] [address] [id number] [place] [address]- 8754 Apr, [facility] [place] [facility] [address] [id number] [place] 5970 Apr, [facility] [place] [facility] [address] [id number] [place] [address]- 0266 Apr, [facility] [place] [facility] [address] [id number] [place] [address]- 0268 Apr, [facility] [place] [facility] [address] [id number] [place] [address]- 0901 Apr, [facility] [place] [facility] [address] [id number] [place] [address]- 9187 Mar, [facility] [place] [facility] [address] [id number] [place] [address]- 4003 Mar, [facility] [place] [facility] [address] [id number] [place] [address]- 1690 Mar, [facility] [place] [facility] [address] [id number] [place] [address]- 2665 Mar, [facility] [place] [facility] [address] [id number] [place] [address]- 9788 Mar, [facility] [place] [facility] [address] [id number] [place] [address]- 2292 Mar, [facility] [place] [facility] [address] [id number] [place] [address]- 2928 Mar, [facility] [place] [facility] [address] [id number] [place] [address]- 3743 Mar, [facility] [place] [facility] [address] [id number] [place] [address]- 6272 Feb, [facility] [place] [facility] [address] [id number] [place] [address]- 4584 Feb, [facility] [place] [facility] [address] [id number] [place] [address]- 4105 January, [facility] [address] [id number] [place] [address]- 7689 January, [facility] [place] [facility] [address] [id number] [place] [address]- 9038 Dec, [facility] [address] [id number] [place] [address]- 7625 Dec, [facility] [place] [facility] [address] [id number] [place] [address]- 6639 Nov, [facility] [address] [id number] [place] [address]- 6477 Nov, [facility] [address] [facility] [id number] [place] [address]- 0623 Nov, [facility] [address] [id number] [place] [address]- 3468 Nov, [facility] [address] [id number] [place] [address]- 0946 Oct, [facility] [address] [facility] [id number] [place] [address]- 8007 Oct, [facility] [address] [facility] [id number] [place] [address]- 4017 Oct, [facility] [address] [facility] [id number] [place] [address]- 4230 Oct, [facility] [address] [facility] [id number] [place] [address]- 8861 16 Oct, 2012 [facility] [place] [facility] [address] [id number] [place] [address]- 8891 14 Oct, 2012 [facility] [place] [facility] [address] [facility] [id number] [place] [address]- 0925 08 Oct, 2012 [facility] [place] [facility] [address] [facility] [id number] [place] [address]- 7833 07 Oct, 2012 [facility] [address] [id number] [place] [address]- 4097 Oct, [facility] [address] [id number] [place] [address]- 4404 Sep, [facility] [address] [id number] [place] [address]- 9676 Sep, [facility] [address] [id number] [place] [address]- 1462 Sep, [facility] [address] [id number] [place] [address]- 1617 Sep, [facility] [address] [id number] [place] [address]- 6884 Sep, [facility] [address] [id number] [place] [address]- 5079 Sep, [facility] [address] [id number] [place] [address]- 4151 Sep, [facility] [address] [id number] [place] [address]- 8919 Sep, [facility] [address] [facility] [id number] [place] [address]- 4492 Aug, [facility] [address] [id number] [place] [address]- 5695 Aug, [facility] [address] [id number] [place] [address]- 3846 Aug, [facility] [address] [id number] [place] [address]- 8914 Aug, [facility] [address] [id number] [place] [address]- 9942 Aug, [facility] [address] [facility] [id number] [place] [address]- 8529 Aug, [facility] [place] [facility] [address] [id number] [place] [address]- 1814 Aug, [facility] [place] [facility] [address] [id number] [place] [address]- 9637 Aug, [facility] [place] [facility] [address] [id number] [place] [address]- 7704 Jul, [facility] [place] [facility] [address] [id number] [place] [address]- 6333 Jul, [facility] [place] [facility] [address] [id number] [place] [address]- 7086 Jul, [facility] [place] [facility] [address] [id number] [place] [address]- 0285 Jul, [facility] [place] [facility] [address] [facility] [id number] [place] [address]- 6426 Jul, [facility] [place] [facility] [address] [id number] [place] [address]- 0344 Jul, [facility] [place] [facility] [address] [id number] [place] [address]- 3511 Jun, [facility] [place] [facility] [address] [id number] [place] [address]- 1261 Jun, [facility] [place] [facility] [address] [facility] [id number] [place] [address]- 1957 Jun, [facility] [place] [facility] [address] [id number] [place] [address]- 8759 Jun, [facility] [place] [facility] [address] [id number] [place] [address]- 0114 Jun, [facility] [place] [facility] [address] [id number] [place] [address]- 7628 Jun, [facility] [place] [facility] [address] [facility] [id number] [place] [address]- 7115 Jun, [facility] [place] [facility] [address] [id number] [place] [address]- 3775 Jun, [facility] [place] [facility] [address] [id number] [place] [address]- 0882 10 Jun, 2012 [facility] [place] [facility] [address] [id number] [place] [address]- 6589 26 May, 2012 [facility] [place] [facility] [address] [id number] [place] [address]- 4049 24 May, 2012 [facility] [place] [facility] [address] [id number] [place] [address]- 8276 May, [facility] [place] [facility] [address] [id number] [place] [address]- 0369 Apr, [facility] [place] [facility] [address] [id number] [place] [address]- 2648 Apr, [facility] [place] [facility] [address] [id number] [place] [address]- 3329 Apr, [facility] [place] [facility] [address] [id number] [place] [address]- 9367 Apr, [facility] [place] [facility] [address] [id number] [place] [address]- 6537 Apr, [facility] [place] [facility] [address] [id number] [place] [address]- 1229 Apr, [facility] [place] [facility] [address] [id number] [place] [address]- 0159 Mar, [facility] [place] [facility] [address] [id number], [place] [address]- 8571 Mar, [facility] [place] [facility] [address] [id number] [place] [address]- 1112 Mar, [facility] [place] [facility] [address] [id number] [place] [address]- 7884 Mar, [facility] [place] [facility] [address] [id number] [place] [address]- 6887 Feb, [facility] [place] [facility] [address] [id number] [place] [address]- 9451 Feb, [facility] [address] [id number] [place] [address]- 9751 Feb, [facility] [place] [facility] [address] [id number] [place]476 Feb, [facility] [address] [id number] [place] [address]- 4165 Feb, [facility] [place] [facility] [address] [id number] [place] [address]- 2510 January, [facility] [address] [id number] [place] [address]- 6042 January, [facility] [place] [facility] [address] [id number] [place] [address]- 9743 January, [facility] [address] [id number] [place] [address]- 9793 January, [facility] [place] [facility] [address] [id number] [place] [address]- 0161 January, [facility] [place] [facility] [address] [id number] [place] [address]- 3423 January, [facility] [address] [id number] [place] [address]- 9743 Dec, [facility] [place] [facility] [address] [id number] [place] [address]- 0516 Dec, [facility] [place] [facility] [address] [id number] [place] [address]- 5523 Dec, [facility] [place] [facility] [address] [id number] [place] [address]- 9145 Dec, [facility] [place] [facility] [address] [id number] [place] [address]- 7758 Dec, [facility] [place] [facility] [address] [id number] [place] [address]- 3734 Nov, [facility] [place] [facility] [address] [id number] [place] [address]- 7447 14 Nov, 2011 [facility] [place] [facility] [address] [id number] [place] [address]- 4612 12 Nov, 2011 [facility] [place] [facility] [address] [id number] [place] [address]- 4518 07 Nov, 2011 [facility] [place] [facility] [address] [id number] [place] [address]- 3006 29 Oct, 2011 [facility] [place] [facility] [address] [id number] [place] [address]- 7294 28 Oct, 2011 [facility] [place] [facility] [address] [id number] [place] [address]- 8676 24 Oct, 2011 [facility] [place] [facility] [address] [id number] [place] [address]- 0252 Oct, [facility] [place] [facility] [address] [id number] [place] [address]- 6947 Oct, [facility] [place] [facility] [address] [id number] [place] [address]- 8345 Sep, [facility] [place] [facility] [address] [id number] [place] [address]- 1489 Sep, [facility] [place] [facility] [address] [id number] [place] [address]- 7168 Sep, [facility] [place] [facility] [address] [id number] [place] [address]- 1569 Sep, [facility] [place] [facility] [address] [id number] [place] [address]- 3681 Sep, [facility] [place] [facility] [address] [id number] [place] [address]- 6326 Sep, [facility] [place] [facility] [address] [id number] [place] [address]- 4517 Aug, [facility] [place] [facility] [address] [id number], [place] [address]- 0953 Aug, [facility] [place] [facility] [address] [id number] [place] [address]- 2621 Aug, [facility] [place] [facility] [address] [id number] [place] [address]- 0754 Jul, [facility] [place] [facility] [address] [facility] [id number] [place] [address]- 8336 Jul, [facility] [place] [facility] [address] [id number] [place] [address] Jul, [facility] [place] [facility] [address] [facility] [id number] [place] [address] Jul, [facility] [place] [facility] [address] [facility] [id number] [place] [address] Jun, [facility] [place] [facility] [address] [facility] [id number] [place] [address] Jun, [facility] [place] [facility] [address] [id number] [place] [address] Jun, [facility] [place] [facility] [address] [facility] [id number] [place] [address] Jun, [facility] [place] [facility] [address] [facility] [id number] [place] [address] Jun, [facility] [place] [facility] [address] [facility] [id number] [place] [address] Jun, [facility] [place] [facility] [address] [facility] [id number], [place] [address] Mar, [facility] [place] [facility] [address] [id number] [place] [address] Dec, [facility] [place] [facility] [address] [facility] [id number] [place] [address] Dec, [facility] [place] [facility] [address] [facility] [id number] [place] [address] Nov, [facility] [place] [facility] [address] [id number] [place] [address] 16 Nov, 2010 [facility] [place] [facility] [address] [id number] [place] [address] 10 Sep, 2010 [facility] [place] [facility] [address] [id number] [place] [address]46 31 Aug, 2010 [facility] [place] [facility] [address] [id number] [place] [address]46 29 Aug, 2010 [facility] [place] [facility] [address] [id number] [place] [address]46 29 Aug, 2010 [facility] [place] [facility] [address] [id number] [place] [address] 29 Aug, 2010 [facility] [place] [facility] [address] [id number] [place] [address] 27 Aug, 2010 [facility] [place] [facility] [address] [id number] [place] [address] 14 Aug, 2010 [facility] [place] [facility] [address] [id number] [place] [address] 08 Aug, 2010 [facility] [place] [facility] [address] [id number] [place] [address] 2546 08 Aug, 2010 [facility] [place] [facility] [address] [id number] [place] [address] 254 07 Aug, 2010 [facility] [place] [facility] [address] [id number] [place] [address] 2546 Aug, [facility] [place] [facility] [address] [id number] [place] [address] 2546 Aug, [facility] [place] [facility] [address] [id number] [place] [address] 2546 Aug, [facility] [place] [facility] [address] [id number] [place] [address]46 30 Jul, 2010 [facility] [place] [facility] [address] [id number] [place] [address] Jul, [facility] [place] [facility] [address] [id number] [place] [address] 30 Jul, 2010 [facility] [place] [facility] [address] [id number] [place] [address] Jul, [facility] [place] [facility] [address] [id number] [place] [address] Jul, [facility] [place] [facility] [address] [id number] [place] [address] Jul, [facility] [place] [facility] [address] [id number] [place] [address] 24 Jun, 2010 [facility] [place] [facility] [address] [id number] [place] [address] Jun, [facility] [place] [facility] [address] [id number] [place] [address] Jun, [facility] [place] [facility] [address] [id number], [place] [address] Jun, [facility] [place] [facility] [address] [id number] [place] [address] Apr, [facility] [place] [facility] [address] [id number], [place] [address] Mar, [facility] [place] [facility] [address] [id number], [place] [address] Feb, [facility] [place] [facility] [address] [id number], [place] [address] January, [facility] [place] [facility] [address] [id number] [place] [address] 15 Dec, 2009 [facility] [place] [facility] [address] [id number], [place] [address] Nov, [facility] [place] [facility] [address] [id number] [place] [address] 31 Aug, 2009 [facility] [place] [facility] [address] [facility] [id number], [place] [address] Aug, [facility] [address] [facility] [id number], [place] [address] Aug, [facility] [place] [facility] [address] [facility] [id number], [place] [address] 2546 Jul, [facility] [address] [facility] [id number], [place] [address] 2546 Jul, [facility] [address] [facility] [id number], [place] [address] 2546 Jul, [facility] [address] [facility] [id number] [place] [address] 30 Jun, 2009 [facility] [address] [facility] [id number] [place] [address] 2546 Jun, [facility] [address] [facility] [id number], [place] [address] Jun, [facility] [address] [facility] [id number], [place] [address] Jun, [facility] [address] [facility] [id number], [place] [address] Jun, [facility] [address] [facility] [id number], [place] [address] Jun, [facility] [address] [facility] [id number], [place] [address] 2546 Apr, [facility] [address] [facility] [id number], [place] [address] 2546 Apr, [facility] [place] [facility] [address] [facility] [id number], [place] [address] 2546 Feb, [facility] [place] [facility] [address] [facility] [id number], [place] [address] 2546 January, [facility] [address] [facility] [id number], [place] [address] 2547 Dec, IMMUNIZATIONS No Known Immunizations SOCIAL HISTORY Never Assessed REASON FOR VISIT f/u, Depression and irritability. PLAN OF CARE Activity Details Follow Up 1 Week Reason:depresson VITAL SIGNS MEDICATIONS Unknown Medications RESULTS No Results PROCEDURES Procedure Date Ordered Result Body Site [facility] VISIT MENTAL HEALTH ESTAB PT Aug 31, 2017 Psychotherapy, patient &/family, 45 minutes, established patient Aug 31, 2017 INSTRUCTIONS MEDICATIONS ADMINISTERED No Known Medications MEDICAL (GENERAL) HISTORY Type Description Date Medical History type II diabetes Medical History coronary artery disease stress test 01/5015 Medical History chronic obstructive pulmonary disease (COPD) Medical History gastroesophageal reflux disease (GERD) Medical History acute renal failure Medical History erectile dysfunction Medical History hyperlipidemia Medical History obesity Medical History skin cancer-basal cell R sikh (removed) Medical History Arthritis Medical History degenerative [...] 2009 Surgical History colonoscopy 2009 ([facility]), 2013 ([facility]) Surgical History heart 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 04/2014 Surgical History carotid US 05/2014 Surgical History resection of skin cancer from Right sikh Surgical History Biopsy of Lung Bilateral/Left lung lymph node 09/2016 Surgical History Bone Marrow Biopsy Surgical History port in the right chest wall 12/2016 Hospitalization History [facility] low potassium, low magnesium, chest painina 01/2015 Hospitalization History inability to urinate 09/16/15 Hospitalization History [facility] early Hospitalization History hyperkalemia 10/2017 Hospitalization History fluid in lung
--- OUTSIDE RECORDS SUMMARY | 2018-08-08 12:47 | XMS REPORT ---
Author Author NOEMI WASHBURN Organization [facility] Address [address] [place] [address] Care Team Providers Care Medical Payment Poster Name Role Phone NOEMI WASHBURN Unavailable PROBLEMS Type Condition ICD9-CM Code ERC25-HI Code Onset Dates Condition Status SNOMED Code Problem Chronic lymphocytic leukemia C91.10 Active 75492153 Problem Insomnia, unspecified type G47.00 Active 552790751 Problem Lymphocytosis D72.820 Active 50898289 Problem Anxiety F41.9 Active 65854066 Problem Eye exam abnormal R93.8 Active 028119604 Problem Morbid obesity E66.01 Active 117748888 Problem Diabetic polyneuropathy associated with type 2 diabetes mellitus E11.42 Active 72071114 Problem Essential hypertension I10 Active 07476484 Problem Falling R29.6 Active 650362970 Problem 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 Active 365527157 Problem Cough R05 Active 10414630 Problem Dysuria R30.0 Active 02796564 Problem Eustachian tube dysfunction, unspecified laterality H69.80 Active 18353987 Problem Bilateral primary osteoarthritis of knee M17.0 Active 486259217 Problem Polyneuropathy associated with underlying disease G63 Active 239752056 Problem Anemia of chronic illness D63.8 Active 851874537 Problem Retinal edema H35.81 Active 6647603 Problem DM neuro manif type II E11.49 Active 70022673 Problem Diabetes E11.9 Active 94222388 Problem Hypokalemia E87.6 Active 70423945 Problem Benign prostatic hyperplasia with lower urinary tract symptoms, unspecified morphology N40.1 Active 957336768 Problem Reactive airway disease J45.909 Active 946524672087 Problem Bipolar I disorder, most recent episode (or current) mixed, moderate F31.62 Active 89505366 Problem Chronic pain G89.29 Active 74648679 Problem Leukocytosis D72.829 Active 092657689 ALLERGIES No Information ENCOUNTERS Encounter Location Date Diagnosis [facility] [id number] [address] Mar, [facility] [address] [address] Mar, [facility] [address], [place] [address] Mar, [facility] [address] [address] Mar, [facility] [address], [place] [address] Feb, [facility] [id number] [place] [address] 840983- 8338 Feb, Decubitus ulcer of right foot, stage 3 L89.893 and BMI 50.0- 59.9, adult Z68.43 [facility] [address], [place] [address] Feb, Bipolar I disorder, most recent episode (or current) mixed, moderate F31.62 [facility] [address] [address] Feb, [facility] [address] [address] January, [facility] [address] [address] January, Chronic pain G89.29 [facility] [address], [place] [address] January, Bipolar I disorder, most recent episode (or current) mixed, moderate F31.62 [facility] [address] [address] 0166 January, Bipolar I disorder, most recent episode (or current) mixed, moderate F31.62 [facility] [address] [address] 3262 Dec, Bipolar I disorder, most recent episode (or current) mixed, moderate F31.62 and BMI 50.0-59.9, adult Z68.43 [facility] [address] [address]- [address] Dec, Bipolar I disorder, most recent episode (or current) mixed, moderate F31.62 [facility] [address] [address]- [address] Dec, Chronic pain G89.29 [facility] [address] 8[address]73- 9155 Dec, DM neuro manif type II E11.49 ; Right flank pain R10.9 ; 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 Z79.891 ; Encounter for medication monitoring Z51.81 and BMI 50.0-59.9, adult Z68.43 [facility] [address] [address]- 7440 Dec, Bipolar I disorder, most recent episode (or current) mixed, moderate F31.62 [facility] [address] [place] [id number] [place] [address] 44792- 2027 Nov, Bipolar I disorder, most recent episode (or current) mixed, moderate F31.62 [facility] [address] [place] [id number] [place] [address] 81582- 6606 Nov, Chronic pain G89.29 [facility] [address] 63994- 9296 Nov, Bipolar I disorder, most recent episode (or current) mixed, moderate F31.62 [facility] [address] [place] [id number] [place] [address] 41944- 5074 Nov, Hypokalemia E87.6 [facility] [address] [place] [id number] [place] [address] 29038- 2193 Nov, Bipolar I disorder, most recent episode (or current) mixed, moderate F31.62 [facility] [address] [place] [address]- 8225 Oct, Chronic pain G89.29 [facility] [address] 02596- 0894 Oct, BMI 50.0-59.9, adult Z68.43 and Bipolar I disorder, most recent episode (or current) mixed, moderate F31.62 [facility] [address] 39656- 4063 Oct, Bipolar I disorder, most recent episode (or current) mixed, moderate F31.62 [facility] [address] 36715- 0590 Oct, [facility] [address] 09431- 8959 Oct, Hypokalemia E87.6 [facility] [address] 44677- 3428 Oct, DM neuro manif type II E11.49 [facility] [address] [place] [id number] [place] [address] 87622- 9339 Oct, Bipolar I disorder, most recent episode (or current) mixed, moderate F31.62 [facility] [address] [place] [id number] [place] [address] 61579- 7203 Oct, Bipolar I disorder, most recent episode (or current) mixed, moderate F31.62 [facility] [address] [place] [id number] [place] [address] 16611- 5215 Oct, Hyperkalemia E87.5 ; Falling R29.6 ; BMI 50.0-59.9, adult Z68.43 and Acute left ankle pain M25.572 [facility] [address] 56118- 2526 Oct, DM neuro manif type II E11.49 [facility] [address] 00959- 2556 Oct, [facility] [id number] [place] [address] 39935- 5165 Sep, Chronic pain G89.29 [facility] [address] [place] [id number] [place] [address] 89736- 6552 Sep, [facility] [address] [place] [id number] [place] [address] 47494- 7447 Sep, Bilateral primary osteoarthritis of knee M17.0 [facility] [address] [place] [id number] [place] [address] 32409- 3773 Sep, Generalized edema R60.[address] [address]- 7722 Sep, Bipolar I disorder, most recent episode (or current) mixed, moderate F31.62 [place] [id number] [place] [address] 66149- 9338 Sep, Hypoxia R09.02 ; Other hypervolemia E87.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 ; Anemia of chronic illness D63.8 and BMI 50.0- 59.9, adult Z68.43 [place] [id number] [place] [address] 58743- 2499 Sep, [facility] [address] [place] [id number] [place] [address] 55078- 1692 Sep, Bipolar I disorder, most recent episode (or current) mixed, moderate F31.62 [facility] [address] [place] [id number] [place] [address] 07357- 2583 Aug, Chronic pain G89.29 [facility] [address] [place] [id number] [place] [address] 59824- 6128 Aug, Generalized edema R60.1 [facility] [address] [place] [id number] [place] [address] 62399- 0540 Aug, [facility] [id number] [place] [address] 90415- 7584 Aug, [facility] [address] [place] [id number] [place] [address] 02364- 4070 Aug, Bipolar I disorder, most recent episode (or current) mixed, moderate F31.62 [facility] [address] [place] [id number] [place] [address] 05104- 4848 Aug, Bipolar I disorder, most recent episode (or current) mixed, moderate F31.62 [facility] [address] [place] [id number] [place] [address] 43211- 9360 Aug, Chronic pain G89.29 [facility] [address] [place] [id number] [place] [address] 87488- 0194 Jul, Bipolar I disorder, most recent episode (or current) mixed, moderate F31.62 [facility] [place] [address] [place] [id number] [place] [address] 10114- 2306 Jul, Bipolar I disorder, most recent episode (or current) mixed, moderate F31.62 and BMI 60.0-69.9, adult Z68.44 [facility] [place] [address] [place] [id number] [place] [address] 04358- 9266 Jul, Bipolar I disorder, most recent episode (or current) mixed, moderate F31.62 [facility] [place] [address] [place] [id number] [place] [address] 14153- 2454 Jul, Chronic pain G89.29 [facility] [place] [address] [place] [id number] [place] [address] 23908- 8496 Jul, Bipolar I disorder, most recent episode (or current) mixed, moderate F31.62 [facility] [place] [address] [place] [id number] [place] [address] 99949- 9939 Jun, Polyneuropathy associated with underlying disease G63 and Diabetes E11.9 [facility] [place] [address] [place] [id number] [place] [address] 43042- 9473 Jun, Bipolar I disorder, most recent episode (or current) mixed, moderate F31.62 [facility] [id number] [place] [address] 79151- 1156 09 Jun, 2017 Chronic pain G89.29 [facility] [id number] [place] [address] 09058- 3558 27 May, 2017 Bipolar I disorder, most recent episode (or current) mixed, moderate F31.62 [facility] [address] [place] [id number] [place] [address] 49379- 8797 21 May, 2017 Bipolar I disorder, most recent episode (or current) mixed, moderate F31.62 [facility] [address] [place] [id number] [place] [address] 400000- 7210 20 May, 2017 Diabetic polyneuropathy associated with type 2 diabetes mellitus E11.42 [facility] [address] [place] [id number] [place] [address] 57746- 5188 18 May, 2017 Bipolar I disorder, most recent episode (or current) mixed, moderate F31.62 [facility] [id number] [place] [address] 56280- 6929 13 May, 2017 Bipolar I disorder, most recent episode (or current) mixed, moderate F31.62 [facility] [id number] [place] [address] 86782- 3112 May, Chronic pain G89.29 [facility] [id number] [place] [address] 85758- 7398 Apr, Bipolar I disorder, most recent episode (or current) mixed, moderate F31.62 [facility] [id number] [place] [address] 45498- 1914 Apr, [facility] [address] [place] [id number] [place] [address] 13177- 2748 Apr, Chronic pain G89.29 and DM neuro manif type II E11.49 [facility] [address] [place] [id number] [place] [address] 76265- 6264 Apr, [facility] [address], [place] [address]- 5546 Apr, Bipolar I disorder, most recent episode (or current) mixed, moderate F31.62 [facility] [address], [place] [address]- 8816 Apr, Chronic pain G89.29 [facility] [address] [place] [id number] [place] [address] 40801- 7396 Apr, Iliotibial band syndrome, left M76.32 [facility] [id number] [place] [address] 84807- 3855 Apr, Bipolar I disorder, most recent episode (or current) mixed, moderate F31.62 [facility] [id number] [place] [address] 93876- 0537 Mar, Bipolar I disorder, most recent episode (or current) mixed, moderate F31.62 [facility] [id number] [place] [address] 08300- 7300 Mar, Bipolar I disorder, most recent episode (or current) mixed, moderate F31.62 [facility] [id number] [place] [address] 55034- 4900 Mar, [facility] [id number] [place] [address] 15434- 8299 Mar, Bipolar I disorder, most recent episode (or current) mixed, moderate F31.62 [facility] [address] [address]- 6674 Mar, Chronic pain G89.29 [facility] [id number] [place] [address] 09763- 8498 Mar, Bipolar I disorder, most recent episode (or current) mixed, moderate F31.62 [facility] [address] [address]- 0222 Mar, Bipolar I disorder, most recent episode (or current) mixed, moderate F31.62 [facility] [place] [id number] [place] [address] 16133- 9050 Mar, Acute pain of left knee M25.562 ; Left hip pain M25.552 ; Generalized edema R60.1 and Tongue swelling R22.0 [facility] [place] [address] [place] [id number] [place] [address] 47927- 2476 Mar, [facility] [place] [address] [place] [id number] [place] [address] 66014- 5653 Feb, Chronic pain G89.29 [place] [address] 22030- 4409 Feb, Diabetes E11.9 [facility] [place] [address] [place] [id number] [place] [address] 59670- 3185 January, Chronic pain G89.29 [facility] [place] [address] [place] [id number] [place] [address] 97986- 3454 January, [facility] [place] [address] [place] [id number] [place] [address] 80844- 1008 January, Bipolar I disorder, most recent episode (or current) mixed, moderate F31.62 [facility] [place] [address] [place] [id number] [place] [address] 12030- 5769 Dec, Bipolar I disorder, most recent episode (or current) mixed, moderate F31.62 [facility] [place] [address] [place] [id number] [place] [address] 77087- 7361 Dec, Chronic pain G89.29 [facility] [place] [address] [place] [id number] [place] [address] 47400- 0571 Dec, Bipolar I disorder, most recent episode (or current) mixed, moderate F31.62 [facility] [place] [address] [place] [id number] [place] [address] 45819- 1991 Dec, Diabetes E11.9 ; Essential hypertension I10 ; Chronic pain G89.29 and Morbid obesity E66.01 [place] [address] [place] [address]- 0936 Dec, [facility] [address], [place] [address]- 6916 Dec, Bipolar I disorder, most recent episode (or current) mixed, moderate F31.62 [facility] [address] 3786 Dec, Bipolar I disorder, most recent episode (or current) mixed, moderate F31.62 [facility] [address], [place] [address]- 3856 Nov, Chronic pain G89.29 [facility] [address] [place] [id number] [place] [address] 67660- 2297 Nov, Bipolar I disorder, most recent episode (or current) mixed, moderate F31.62 [facility] [address], [place] [address]- 2826 Nov, [facility] [address] [place] [id number] [address]- 2734 Nov, Bipolar I disorder, most recent episode (or current) mixed, moderate F31.62 [facility] [address], [place] [address]- 4243 Nov, Bipolar I disorder, most recent episode (or current) mixed, moderate F31.62 [facility] [address] [address]- 6016 Nov, [facility] [address], [place] [address]- 2546 Nov, [facility] [address], [place] [address]- 9756 Nov, [facility] [address], [place] [address]- 5976 Oct, Chronic pain G89.29 [facility] [address], [place] [address]- 9276 Oct, Bipolar I disorder, most recent episode (or current) mixed, moderate F31.62 [facility] [address] [place] [id number] [place] [address] 69917- 8146 Oct, [facility] [address] [place] [id number] [place] [address] 28286- 4306 15 Oct, 2016 Chronic pain G89.29 ; Diabetes E11.9 ; Anxiety F41.9 and 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 [facility] [address] [place] [id number] [place] [address] 86000- 6207 Oct, [facility] [address] [place] [id number] [place] [address] 20246- 7161 Oct, Diabetes E11.9 [facility] [address] [place] [id number] [place] [address] 09171- 7928 Oct, Bipolar I disorder, most recent episode (or current) mixed, moderate F31.62 [facility] [address] [place] [id number] [place] [address] 78095- 6355 Sep, Chronic pain G89.29 [facility] [address] [place] [id number] [place] [address] 08034- 6433 Sep, Chronic pain G89.29 [facility] [address] [place] [id number] [place] [address] 22528- 2166 Aug, Chronic pain G89.29 [facility] [address] [place] [id number] [place] [address] 95870- 5381 Jul, [facility] [address] [place] [id number] [place] [address] 07575- 8344 Jul, Diabetes E11.9 [facility] [address] [place] [id number] [place] [address] 19389- 7931 Jul, Chronic pain G89.29 [facility] [address] [place] [id number] [place] [address] 55006- 8663 Jul, Bipolar I disorder, most recent episode (or current) mixed, moderate F31.62 [facility] [address] [place] [id number] [place] [address] 01893- 7824 Jun, Bipolar I disorder, most recent episode (or current) mixed, moderate F31.62 [facility] [address] [place] [id number] [place] [address] 13792- 9295 Jun, [facility] [address] 01488- 0740 Jun, Bipolar I disorder, most recent episode (or current) mixed, moderate F31.62 [facility] [address] [place] [id number] [place] [address] 47830- 4058 30 May, 2016 Insomnia, unspecified type G47.00 [facility] [address] [place] [id number] [place] [address] 79648- 2643 May, Bipolar I disorder, most recent episode (or current) mixed, moderate F31.62 [facility] [address] [place] [id number] [place] [address] 57831- 1360 14 May, 2016 [facility] [address] 44482- 1585 08 May, 2016 Bipolar I disorder, most recent episode (or current) mixed, moderate F31.62 [facility] [address] [place] [id number] [place] [address] 39659- 6638 May, Diabetes E11.9 and Essential hypertension I10 [facility] [address] [place] [id number] [place] [address] 87939- 8048 Apr, Chronic pain G89.29 [facility] [address] 81609- 0345 Apr, Bipolar I disorder, most recent episode (or current) mixed, moderate F31.62 [facility] [address] [place] [id number] [place] [address] 73153- 5798 Apr, [facility] [address] 46024- 7401 Apr, [facility] [address] [place] [id number] [place] [address] 06265- 7654 Mar, Chronic pain G89.29 ; Headache, unspecified headache type R51 ; Neuropathy G62.9 ; Pain of right hip joint M25.551 and Essential hypertension I10 [facility] [address] [place] [id number] [place] [address] 63666- 6120 Mar, Chronic pain G89.29 [place] [address] 51094- 2385 Mar, Bipolar I disorder, most recent episode (or current) mixed, moderate F31.62 [place] [address] [place] [id number] [place] [address] 48709- 4477 Feb, Bipolar I disorder, most recent episode (or current) mixed, moderate F31.62 and Insomnia, unspecified type G47.00 [place] [address] [place] [id number] [place] [address] 95709- 9071 Feb, Chronic pain G89.29 [facility] [place] [address] [place] [id number] [place] [address] 49573- 8476 Feb, Bipolar I disorder, most recent episode (or current) mixed, moderate F31.62 [place] [address] [place] [id number] [place] [address] 47753- 8467 January, Bipolar I disorder, most recent episode (or current) mixed, moderate F31.62 [place] [address] [place] [id number] [place] [address] 72721- 2454 January, Chronic pain G89.29 [facility] [place] [address] [place] [id number] [place] [address] 28007- 6467 January, Chronic pain G89.29 and Essential hypertension I10 [place] [address] [place] [id number] [place] [address] 36383- 0820 January, Bipolar I disorder, most recent episode (or current) mixed, moderate F31.62 [place] [address] [address]- 8960 Dec, [facility] [id number] [place] [address] 32235- 3724 Dec, [facility] [address] [id number] [place] [address] 68519- 2084 Dec, [facility] [id number] [place] [address] 52325- 9596 Dec, [facility] [address] [id number] [place] [address] 51053- 3608 Nov, Reactive airway disease J45.909 [facility] [address] [place] [id number] [place] [address] 20035- 1875 Nov, [facility] [id number] [place] [address] 94456- 4933 Nov, [facility] [id number] [place] [address] 04473- 7872 Nov, [facility] [id number] [place] [address] 31995- 7579 Nov, [facility] [address] [place] [id number] [place] [address] 22432- 6464 Nov, Onychomycosis B35.1 ; Hammertoe M20.40 ; Verona or callus L84 and DM neuro manif type II E11.49 [facility] [id number] [place] [address] 37962- 4166 Nov, Chronic pain G89.29 ; Leukocytosis D72.829 and Diabetes E11.9 [facility] [id number] [place] [address] 45407- [id number] Nov, [facility] [id number] [place] [address] [id number]- 6136 Oct, Bronchitis J40 [facility] [id number] [place] [address] [id number]- [phone] Oct, [facility] [id number] [place] [address] [id number] 2141 Oct, [facility] [id number] [place] [address] 33751- 4257 Oct, Mastoiditis, unspecified laterality H70.90 and Type 2 diabetes mellitus with complication E11.8 [facility] [id number] [place] [address] [id number] 7508 Sep, [facility] [id number] [place] [address] 42921- 6591 Sep, Dysuria R30.0 ; Cough R05 ; Benign prostatic hyperplasia with lower urinary tract symptoms, unspecified morphology N40.1 ; Hypokalemia E87.6 and Eustachian tube dysfunction, unspecified laterality H69.[address] [place] [id number] [place] [address] 42346- 4375 Sep, Moderate mixed bipolar I disorder F31.62 [facility] [id number] [place] [address] 30383- 0794 Sep, Hypokalemia E87.6 [facility] [id number] [place] [address] 90633- 3911 Sep, [facility] [place] [id number] [place] [address] 20623- 8457 Sep, Upper respiratory tract infection, unspecified type J06.9 [place] [id number] [place] [address] 53004- 1422 Aug, [facility] [id number] [place] [address] 10674- 6733 Aug, Dysuria R30.0 [facility] [id number] [place] [address] 74849- 2595 Aug, [facility] [id number] [place] [address] 23574- 2180 Jul, [facility] [address] [address] 8178 Jul, [facility] [address] [address] 4665 Jul, [facility] [address] [address] 3790 Jul, [facility] [id number] [place] [address] 85842- 8206 Jun, [facility] [address] [address] 3899 Jun, [facility] [address] [address] 2747 Jun, [facility] [id number] [place] [address] 08019- 3264 May, [facility] [id number] [place] [address] 95365- 1237 May, Bipolar I disorder, most recent episode (or current) mixed, moderate 296.62 [facility] [address] [address] 2871 16 May, 2015 [facility] [address] [address]- 8937 May, Bipolar I disorder, most recent episode (or current) mixed, moderate 296.62 and Major depressive disorder, recurrent episode, severe, specified as with psychotic behavior 296.34 [facility] [address] [address]- 8096 May, Bipolar I disorder, most recent episode (or current) mixed, moderate 296.62 [facility] [address] 8820 May, [facility] [address] [address]- 3496 Apr, [facility] [id number] [address]- 1547 Apr, [facility] [id number] [place] [address] 13336- 4440 Apr, Unspecified disorder of kidney and ureter 593.9 and Diabetes mellitus type 2, uncontrolled 250.02 [facility] [id number] [place] [address] 91544- 8349 Apr, [facility] [id number] [place] [address] 04603- 7773 Apr, [facility] [id number] [place] [address] 62891- 6592 Apr, [facility] [id number] [place] [address] 20323- 9804 Apr, [facility] [id number] [place] [address] 16990- 0164 Apr, Diabetes mellitus type II, uncontrolled 250.02 [facility] [id number] [place] [address] 63170- 4701 Apr, [facility] [id number] [place] [address] 61017- 0918 Mar, [facility] [id number] [place] [address] 30317- 1750 Mar, [facility] [id number] [place] [address] 24455- 6679 Mar, [facility] [id number] [place] [address] 11323- 6503 Mar, Major depressive disorder, recurrent episode, severe, specified as with psychotic behavior 296.34 and Bipolar I disorder, most recent episode (or current) mixed, moderate 296.62 [facility] [id number] [place] [address] 40096- 1310 Mar, Diabetes 250.00 ; Anuria 788.5 ; Nausea and vomiting 787.01 and Diarrhea 787.91 [facility] [address] [address]- 0962 Mar, Diabetes 250.00 [facility] [id number] [place] [address] 13814- 0791 Mar, [facility] [id number] [place] [address] 96146- 1556 Mar, Diabetes 250.00 [facility] [id number] [place] [address] 28833- 2074 Mar, [facility] [id number] [place] [address] 62639- 7551 Mar, [facility] [id number] [place] [address] 02868- 5851 Mar, [facility] [id number] [place] [address] 35640- 5093 Mar, [facility] [id number] [place] [address] 31684- 8251 Mar, Bipolar I disorder, most recent episode (or current) mixed, moderate 296.62 and Major depressive disorder, recurrent episode, severe, specified as with psychotic behavior 296.34 [facility] [id number] [place] [address] 28953- 2544 Mar, Magnesium deficiency 275.2 ; Hypokalemia 276.8 ; Nausea & vomiting 787.01 and Diabetes mellitus type 2, uncontrolled 250.02 [facility] [id number] [place] [address] 80302- 8343 Feb, [facility] [id number] [place] [address] 51763- 0771 Feb, Bipolar I disorder, most recent episode (or current) mixed, moderate 296.62 [facility] [id number] [place] [address] 31163- 0582 Feb, Nausea and vomiting 787.01 ; Left elbow pain 719.42 ; Anuria 788.5 and Diabetes 250.00 [facility] [address] [address]- 9406 Feb, [facility] [id number] [place] [address] 20251- 6387 Feb, Hypopotassemia 276.8 and Hypokalemia 276.8 [facility] [address], [place] [address]- 7053 Feb, Hypopotassemia 276.8 and Hypokalemia 276.8 [facility] [address], [place] [address]- 3319 Feb, Seborrheic keratoses 702.19 [facility] [id number] [place] [address] 83581- 8140 Feb, Hypopotassemia 276.8 and Low magnesium levels 275.2 [facility] [id number] [place] [address] 70848- 3940 January, [facility] [address] [address]- 7406 January, [facility] [id number] [place] [address] 92551- 6292 January, [facility] [address], [place] [address]- 1095 January, Scalp lesion 709.9 [facility] [id number] [place] [address] 08928- 0761 January, [facility] [address], [place] [address]- 3951 Dec, Tear of medial cartilage or meniscus of knee, current 836.0 and 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 [facility] [address] [address]- 6000 Dec, [facility] [address], [place] [address]- 6803 Dec, [facility] [address] [place] [address]- 9569 28 Dec, 2014 Squamous cell carcinoma, 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 [facility] [place] [facility] [address] [id number] [place] [address]- 0508 14 Dec, 2014 [facility] [place] [facility] [address] [id number] [place] [address]- 7360 13 Dec, 2014 [facility] [place] [facility] [address] [id number] [place] [address]- 5306 27 Nov, 2014 [facility] [place] [facility] [address] [id number] [place] 8046 Nov, [facility] [place] [facility] [address] [id number] [place] [address]- 7300 Nov, [facility] [place] [facility] [address] [facility] [id number] [place] [address]- 8457 Nov, [facility] [place] [facility] [address] [id number] [place] [address]- 9983 Nov, [facility] [place] [facility] [address] [facility] [id number] [place] [address]- 8081 Nov, [facility] [place] [facility] [address] [facility] [id number] [place] [address]- 3375 Nov, [facility] [place] [facility] [address] [facility] [id number] [place] [address]- 1451 Nov, [facility] [place] [facility] [address] [id number] [address]- 5527 Nov, [facility] [place] [facility] [address] [id number] [place] 0789 Nov, [facility] [place] [facility] [address] [id number] [place] [address]- 9177 Nov, [facility] [place] [facility] [address] [facility] [id number] [address]- 5846 Nov, [facility] [place] [facility] [address] [facility] [id number] [address]- 8328 Oct, 2014 [facility] [place] [facility] [address] [id number] [place] [address]- 7787 Oct, 2014 [facility] [place] [facility] [address] [id number] [place] [address]- 7786 Oct, 2014 [facility] [place] [facility] [address] [facility] [id number] [place] [address]- 8946 Oct, 2014 [facility] [place] [facility] [address] [facility] [id number] [place] [address]- 2615 Oct, 2014 [facility] [place] [facility] [address] [id number] [place] [address]- 0631 Oct, 2014 [facility] [place] [facility] [address] [facility] [id number] [place] [address]- 7122 Oct, 2014 [facility] [place] [facility] [address] [facility] [id number] [place] [address]- 1663 Oct, 2014 [facility] [place] [facility] [address] [facility] [id number] [place] [address]- 7930 Oct, [facility] [place] [facility] [id number] [place] [place] [address]- 3468 Sep, [facility] [place] [facility] [address] [facility] [id number] [place] [address]- 1879 Sep, [facility] [place] [facility] [address] [facility] [id number] [place] [address]- 8418 Sep, [facility] [place] [facility] [address] [facility] [id number] [address]- 0470 Sep, [facility] [place] [facility] [address] [facility] [id number] [place] [address]- 2227 Sep, [facility] [place] [facility] [address] [facility] [id number] [place] [address]- 3758 Sep, [facility] [place] [facility] [address] [facility] [id number], [place] [address]- 9518 Sep, [facility] [place] [facility] [address] [id number] [place] [address]- 1256 Sep, [facility] [place] [facility] [address] [id number] [place] [address]- 7507 Sep, [facility] [place] [facility] [address] [id number] [place] [address]- 2025 Sep, [facility] [place] [facility] [address] [id number] [place] [address]- 8536 Sep, [facility] [place] [facility] [address] [id number] [place] [address]- 1555 Sep, [facility] [place] [facility] [address] [id number] [place] [address]- 3023 Sep, [facility] [place] [facility] [address] [id number] [place] [address]- 2973 Sep, [facility] [place] [facility] [address] [id number] [place] [address]- 9482 Sep, [facility] [place] [facility] [address] [id number] [place] [address]- 7845 Sep, [facility] [place] [facility] [address] [id number] [place] [address]- 2803 Aug, [facility] [place] [facility] [address] [id number] [place] [address]- 0551 Aug, [facility] [place] [facility] [address] [id number] [address]- 8512 Aug, [facility] [place] [facility] [address] [id number] [place] [address]- 2580 Aug, [facility] [place] [facility] [address] [id number] [place] [address]- 3597 Aug, [facility] [place] [facility] [address] [id number] [place] [address]- 4951 Aug, [facility] [place] [facility] [address] [id number] [place] [address]- 4276 Aug, [facility] [address] [id number] [place] [address]- 1169 Aug, [facility] [address] [id number] [place] [address]- 9826 Aug, [facility] [address] [id number] [place] [address]- 6175 Aug, [facility] [address] [id number] [place] [address]- 4040 Aug, [facility] [address] [place] [id number] Aug, [facility] [address] [id number] [place] [address]- 4503 Aug, [facility] [address] [id number] [place] [address]- 0642 Aug, [facility] [address] [id number] [place] [address]- 2582 Aug, [facility] [address] [id number] [place] [address]- 0997 Aug, [facility] [address] [id number] [place] [address]- 9856 Aug, [facility] [address] [id number] [place] [address]- 9939 Aug, [facility] [place] [facility] [address] [id number] [place] [address]- 8464 Aug, [facility] [place] [facility] [address] [id number] [place] [address]- 3187 Aug, [facility] [address] [id number] [place] [address]- 1913 Aug, [facility] [address] [id number] [place] [address]- 1259 Aug, [facility] [address] [id number] [place] [address]- 8843 03 Aug, 2014 [facility] [place] [facility] [address] [id number] [place] [address]- 2007 Aug, [facility] [place] [facility] [address] [id number] [place] 1408 Aug, [facility] [place] [facility] [address] [id number] [place] 4314 Aug, [facility] [place] [facility] [address] [id number] [place] [address]- 7684 Aug, [facility] [place] [facility] [address] [id number] [place] [address]- 3834 Aug, [facility] [place] [facility] [address] [id number] [place] [address]- 3193 Aug, [facility] [place] [facility] [address] [id number] [place] [address]- 3114 Aug, [facility] [place] [facility] [address] [id number] [place] [address]- 8773 Jul, [facility] [place] [facility] [address] [id number] [place] [address]- 2496 Jul, [facility] [place] [facility] [address] [facility] [id number] [place] [address]- 5370 Jul, [facility] [place] [facility] [address] [id number] [place] [address]- 3051 Jul, [facility] [place] [facility] [address] [id number] [place] [address]- 4523 Jul, [facility] [place] [facility] [address] [id number] [place] [address]- 2283 Jul, [facility] [place] [facility] [address] [id number] [place] [address]- 9025 Jul, [facility] [place] [facility] [address] [id number] [place] [address]- 0042 Jul, [facility] [place] [facility] [address] [id number] [place] [address]- 2758 Jul, [facility] [place] [facility] [address] [id number] [place] [address]- 7520 Jul, [facility] [place] [facility] [address] [id number] [place] [address]- 7123 Jun, [facility] [place] [facility] [address] [id number] [place] [address]- 9788 Jun, [facility] [place] [facility] [address] [id number] [place] [address]- 6870 Jun, [facility] [place] [facility] [address] [id number] [place] [address]- 6656 Jun, [facility] [place] [facility] [address] [id number] [place] [address]- 2006 Jun, [facility] [place] [facility] [address] [id number] [place] [address]- 0844 Jun, [facility] [place] [facility] [address] [id number] [place] [address]- 0950 Jun, [facility] [place] [facility] [address] [id number] [place] [address]- 3265 Jun, [facility] [place] [facility] [address] [id number] [place] [address]- 7863 Jun, [facility] [place] [facility] [address] [id number] [place] [address]- 2179 Jun, [facility] [place] [facility] [address] [id number] [place] [address]- 1874 May, [facility] [place] [facility] [address] [id number] [place] [address]- 1086 29 May, 2014 [facility] [place] [facility] [address] [id number] [place] [address]- 3999 May, [facility] [place] [facility] [address] [id number] [place] [address]- 6871 26 May, 2013 [facility] [place] [facility] [address] [id number] [place] [address] 2546 17 May, 2013 [facility] [place] [facility] [address] [id number] [place] [address] 2546 17 May, 2013 [facility] [place] [facility] [address] [id number] [place] [address] 2546 15 May, 2013 [facility] [place] [facility] [address] [id number] [place] [address] 2546 15 May, 2013 [facility] [place] [facility] [address] [id number] [place] [address] 2540 15 May, 2013 [facility] [place] [facility] [address] [id number] [place] [address]- 3765 15 May, 2013 [facility] [place] [facility] [address] [id number] [place] [address]- 0719 10 May, 2013 [facility] [place] [facility] [address] [id number] [place] [address]- 2761 10 May, 2013 [facility] [place] [facility] [address] [id number] [place] [address] 2541 09 May, 2013 [facility] [place] [facility] [address] [id number] [place] [address]- 2547 09 May, 2013 [facility] [place] [facility] [address] [id number] [place] [address] 2549 04 May, 2013 [facility] [place] [facility] [address] [id number] [place] [address]- 254 May, 2013 [facility] [place] [facility] [address] [id number] [place] [address]- 2541 Apr, [facility] [place] [facility] [address] [id number] [place] [address]- 6918 Apr, [facility] [place] [facility] [address] [id number] [place] [address]- 7852 Apr, [facility] [place] [facility] [address] [id number] [place] [address]- 4912 Apr, [facility] [place] [facility] [address] [id number] [facility] [place] [address]- 4908 Apr, [facility] [place] [facility] [address] [id number] [place] [address]- 2667 Apr, [facility] [place] [facility] [address] [id number] [place] [address]- 7532 Apr, [facility] [place] [facility] [address] [id number] [place] [address]- 7826 Apr, [facility] [place] [facility] [address] [id number] [place] [address]- 7155 Apr, [facility] [place] [facility] [address] [id number] [place] [address]- 5241 Apr, [facility] [place] [facility] [address] [id number] [place] [address]- 0096 Apr, [facility] [place] [facility] [address] [id number] [place] [address]- 7312 Apr, [facility] [place] [facility] [address] [id number] [place] [address]- 9923 Apr, [facility] [place] [facility] [address] [id number] [place] [address] Apr, [facility] [place] [facility] [address] [id number] [place] [address] Apr, [facility] [place] [facility] [address] [id number] [place] [address] Mar, [facility] [place] [facility] [address] [id number] [place] [address] Mar, [facility] [place] [facility] [address] [id number] [place] [address] Mar, [facility] [place] [facility] [address] [id number] [place] [address] Mar, [facility] [place] [facility] [address] [id number] [place] [address] Mar, 2013 [facility] [place] [facility] [address] [id number] [place] [address] Mar, 2013 [facility] [place] [facility] [address] [id number] [place] [address] Mar, 2013 [facility] [place] [facility] [address] [id number] [place] [address]- [address] Mar, 2013 [facility] [place] [facility] [address] [id number] [place] [address]- [address] Mar, 2013 [facility] [place] [facility] [address] [id number] [place] [address] Mar, 2013 [facility] [place] [facility] [address] [id number] [place] [address] Mar, 2013 [facility] [place] [facility] [address] [id number] [place] [address]- [address] Mar, 2013 [facility] [place] [facility] [address] [id number] [place] [address]- [address] Mar, 2013 [facility] [place] [facility] [address] [id number] [place] [address]- [address] Mar, 2013 [facility] [place] [facility] [address] [id number] [place] [address]- [address] Mar, 2013 [facility] [place] [facility] [address] [id number] [place] [address]- [address] Mar, 2013 [facility] [place] [facility] [address] [id number] [place] [address]- [address] Mar, 2013 [facility] [place] [facility] [address] [id number] [place] [address]- [address] Mar, [facility] [place] [facility] [address] [id number] [place] [address] Feb, [facility] [place] [facility] [address] [id number] [address] Feb, [facility] [place] [facility] [address] [id number] [place] [address]- [address] Feb, [facility] [place] [facility] [address] [id number] [place] [address]- [address] Feb, [facility] [place] [facility] [address] [id number] [place] [address] Feb, [facility] [place] [facility] [address] [id number] [place] [address]- [address] Feb, [facility] [place] [facility] [address] [id number] [place] [address]- [address] Feb, [facility] [place] [facility] [address] [id number] [place] [address]- [address] Feb, [facility] [place] [facility] [address] [id number] [place] [address]- [address] Feb, [facility] [place] [facility] [address] [id number] [place] [address]- [address] Feb, [facility] [place] [facility] [address] [id number] [place] [address] Feb, [facility] [place] [facility] [address] [id number] [place] [address] Feb, [facility] [place] [facility] [address] [id number] [place] [address]- [address] Feb, [facility] [place] [facility] [address] [id number] [place] [address] Feb, [facility] [place] [facility] [address] [id number] [place] [address] January, [facility] [place] [facility] [address] [id number] [place] [address] January, [facility] [place] [facility] [address] [id number] [place] [address] January, [facility] [place] [facility] [address] [id number] [place] [address] January, [facility] [place] [facility] [address] [id number] [place] [address]- [address] January, [facility] [place] [facility] [address] [id number] [place] [address] January, [facility] [place] [facility] [address] [id number] [place] [address]- [address] January, [facility] [place] [facility] [address] [id number] [place] [address] January, [facility] [place] [facility] [address] [id number] [place] [address] January, [facility] [place] [facility] [address] [id number] [place] [address] January, [facility] [place] [facility] [address] [id number] [place] [address]- [address] January, [facility] [place] [facility] [address] [id number] [place] [address]- [address] January, [facility] [place] [facility] [address] [id number] [place] [address]- [address] January, [facility] [place] [facility] [address] [id number] [place] [address] January, [facility] [place] [facility] [address] [id number] [place] [address]- [address] Dec, [facility] [place] [facility] [address] [id number] [place] [address]- [address] Dec, [facility] [place] [facility] [address] [id number] [place] [address]- [address] Dec, [facility] [place] [facility] [address] [id number] [place] [address]- [address] Dec, [facility] [place] [facility] [address] [id number] [place] [address] Dec, [facility] [place] [facility] [address] [id number] [place] [address] Dec, [facility] [place] [facility] [address] [id number] [place] [address]- [address] Dec, [facility] [place] [facility] [address] [id number] [place] [address] Dec, [facility] [place] [facility] [address] [id number] [place] [address]- 4484 Dec, [facility] [place] [facility] [address] [id number] [place] [address]- 7176 Dec, [facility] [place] [facility] [address] [id number] [place] [address] 4480 Nov, [facility] [place] [facility] [address] [id number] [place] [address]607 Nov, [facility] [place] [facility] [address] [id number] [place] [address]- 6123 Nov, [facility] [place] [facility] [address] [id number] [place] [address]- 2814 Nov, [facility] [place] [facility] [address] [id number] [place] [address]- 6002 Nov, [facility] [place] [facility] [address] [id number] [place] [address]- 9233 Nov, [facility] [place] [facility] [address] [id number] [place] [address]- 9447 Nov, [facility] [place] [facility] [address] [id number] [place] [address]- 3647 Nov, [facility] [place] [facility] [address] [id number] [place] [address]- 5238 Nov, [facility] [place] [facility] [address] [id number] [place] [address]- 5992 Nov, [facility] [place] [facility] [address] [id number] [place] [address]- 6880 Oct, [facility] [place] [facility] [address] [id number] [place] [address]- 1813 Oct, [facility] [place] [facility] [address] [id number] [place] [address]- 2546 Oct, [facility] [place] [facility] [address] [id number] [place] [address]- 5157 Oct, [facility] [place] [facility] [address] [id number] [place] [address]- 7803 Oct, [facility] [place] [facility] [address] [id number] [place] [address]- 0271 Oct, [facility] [place] [facility] [address] [facility] [id number] [place] [address]- 5004 Oct, [facility] [place] [facility] [address] [facility] [id number] [place] [address]- 3238 Oct, [facility] [place] [facility] [address] [facility] [id number] [place] [address]- 9100 Oct, [facility] [place] [facility] [address] [facility] [id number] [place] [address]- 6657 Oct, [facility] [place] [facility] [address] [facility] [id number] [place] [address]- 8930 Oct, [facility] [place] [facility] [address] [facility] [id number] [address] Oct, [facility] [place] [facility] [address] [facility] [id number] [place] [address]- 1100 Oct, [facility] [place] [facility] [address] [facility] [id number] [place] [address]- 4751 Oct, [facility] [place] [facility] [address] [facility] [id number] [place] [address]- 5604 Sep, [facility] [place] [facility] [address] [facility] [id number], [place] [address]- [address] Sep, [facility] [address] [id number] [place] [address]- 5848 15 Sep, 2013 [facility] [place] [facility] [address] [id number] [place] [address]- 2523 15 Sep, 2013 [facility] [place] [facility] [address] [id number] [place] [address]- 9060 Sep, [facility] [place] [facility] [address] [id number] [place] [address]- 0075 Sep, [facility] [place] [facility] [address] [id number] [place] [address]- 2003 Sep, [facility] [place] [facility] [address] [id number] [place] [address]- 6778 Sep, [facility] [place] [facility] [address] [id number] [place] [address]- 2522 Sep, [facility] [place] [facility] [address] [id number] [place] [address]- 7762 Sep, [facility] [place] [facility] [address] [id number] [place] [address]- 5752 Aug, [facility] [place] [facility] [address] [id number] [place] [address]- 5458 Aug, [facility] [place] [facility] [address] [id number] [place] [address]- 2692 Jul, [facility] [place] [facility] [address] [id number] [place] [address]- 0783 Jul, [facility] [place] [facility] [address] [id number] [place] [address]- 0314 Jul, [facility] [place] [facility] [address] [id number] [place] [address]- 6649 Jul, [facility] [place] [facility] [address] [id number] [place] [address]- 5828 Jul, [facility] [place] [facility] [address] [id number] [place] [address]- 1854 13 Jul, 2013 [facility] [place] [facility] [address] [id number] [place] [address]- 5528 Jul, [facility] [place] [facility] [address] [id number] [place] [address]- 7045 Jul, [facility] [place] [facility] [address] [id number] [place] [address]- 5121 Jul, [facility] [place] [facility] [address] [id number] [place] [address]- 6232 Jul, [facility] [place] [facility] [address] [id number] [place] [address]- 3414 Jul, [facility] [place] [facility] [address] [id number] [place] [address]- 3280 Jul, [facility] [place] [facility] [address] [id number] [place] [address]- 7832 Jul, [facility] [place] [facility] [address] [id number] [place] [address]- 9912 Jul, [facility] [place] [facility] [address] [id number] [place] [address]- 3453 Jul, [facility] [place] [facility] [address] [id number] [place] [address]- 2555 Jul, [facility] [place] [facility] [address] [id number] [place] [address]- 1393 Jul, [facility] [place] [facility] [address] [id number] [place] [address]- 0787 Jul, [facility] [place] [facility] [address] [id number] [place] [address]- 1206 Jul, [facility] [place] [facility] [address] [id number] [place] [address]- 7788 Jun, [facility] [place] [facility] [address] [id number] [place] [address]- 8447 Jun, [facility] [place] [facility] [address] [id number] [place] [address]- 4902 16 Jun, 2012 [facility] [place] [facility] [address] [id number] [place] [address]- 5144 16 Jun, 2012 [facility] [place] [facility] [address] [id number] [place] [address]- 3372 16 Jun, 2012 [facility] [place] [facility] [address] [id number] [place] [address]- 5568 16 Jun, 2012 [facility] [place] [facility] [address] [id number] [place] [address]- 6799 10 Jun, 2012 [facility] [place] [facility] [address] [id number] [place] [address]- 3848 10 Jun, 2013 [facility] [place] [facility] [address] [id number] [place] [address]- 2721 Jun, [facility] [place] [facility] [address] [id number], [place] [address]- 2810 09 Jun, 2013 [facility] [place] [facility] [address] [id number] [place] [address]- 5269 Jun, [facility] [place] [facility] [address] [id number], [place] [address]- 5455 26 Sep, 2012 [facility] [place] [facility] [address] [id number], [place] [address]- 1792 25 Sep, 2012 [facility] [place] [facility] [address] [id number], [place] [address]- 9424 19 Sep, 2012 [facility] [place] [facility] [address] [id number] [place] [address]- 8217 17 Sep, 2012 [facility] [place] [facility] [address] [id number], [place] [address]- 8017 11 Sep, 2012 [facility] [place] [facility] [address] [id number], [place] [address]- 7008 10 Sep, 2012 [facility] [place] [facility] [address] [id number] [place] [address]- 9451 May, [facility] [place] [facility] [address] [id number] [place] [address]- 8081 May, [facility] [place] [facility] [address] [id number] [place] [address]- 7103 Apr, [facility] [place] [facility] [address] [id number] [place] [address]- 1257 Apr, [facility] [place] [facility] [address] [id number] [place] [address]- 7153 Apr, [facility] [place] [facility] [address] [id number] [place] [address]- 6045 Apr, [facility] [place] [facility] [address] [id number] [place] [address]- 3314 Apr, [facility] [place] [facility] [address] [id number] [place] [address]- 1987 Mar, [facility] [place] [facility] [address] [id number] [place] [address]- 9183 Mar, [facility] [place] [facility] [address] [id number] [place] [address]- 0922 Mar, [facility] [place] [facility] [address] [id number] [place] [address]- 6540 Mar, [facility] [place] [facility] [address] [id number] [place] [address]- 5977 Mar, [facility] [place] [facility] [address] [id number] [place] [address]- 9766 Mar, [facility] [place] [facility] [address] [id number] [place] [address]- 7326 Mar, [facility] [place] [facility] [address] [id number] [place] [address]- 1269 Mar, [facility] [place] [facility] [address] [id number] [place] [address]- 7872 Feb, [facility] [place] [facility] [address] [id number] [place] [address]- 7191 Feb, [facility] [place] [facility] [address] [id number] [place] [address]- 2096 January, [facility] [place] [facility] [address] [id number] [place] [address]- 1087 January, [facility] [place] [facility] [address] [id number] [place] [address]- 3939 Dec, [facility] [place] [facility] [address] [id number] [place] [address]- 7475 Dec, [facility] [place] [facility] [address] [id number] [place] [address]- 8531 Nov, [facility] [address] [facility] [id number] [place] [address]- 1439 Nov, [facility] [place] [facility] [address] [id number] [place] [address]- 3987 Nov, [facility] [place] [facility] [address] [id number] [place] [address]- 7378 Nov, [facility] [place] [facility] [address] [id number] [place] [address]- 8506 Oct, [facility] [place] [facility] [address] [facility] [id number] [place] [address]- 6554 Oct, [facility] [place] [facility] [address] [id number], [place] [address]- 3280 Oct, [facility] [place] [facility] [address] [id number] [place] [address]- 4635 Oct, [facility] [place] [facility] [address] [id number] [place] [address]- 6913 16 Oct, 2012 [facility] [place] [facility] [address] [id number] [place] [address]- 0516 14 Oct, 2012 [facility] [place] [facility] [address] [id number], [place] [address]- 4614 08 Oct, 2012 [facility] [address] [id number] [place] [address]- 9356 07 Oct, 2012 [facility] [address] [id number] [place] [address]- 4107 03 Oct, 2012 [facility] [address] [id number] [place] [address]- 2890 30 Sep, 2012 [facility] [address] [id number] [place] [address]- 4115 29 Sep, 2012 [facility] [address] [id number] [place] [address]- 7243 Sep, [facility] [address] [id number] [place] [address]- 2186 Sep, [facility] [address] [id number] [place] [address]- 8258 17 Sep, 2012 [facility] [address] [id number] [place] [address]- 8508 Sep, [facility] [address] [id number] [place] [address]- 8705 Sep, [facility] [address] [id number] [place] [address]- 0260 08 Sep, 2012 [facility] [address] [id number] [place] [address]- 1956 Aug, [facility] [address] [id number] [place] [address]- 1609 Aug, [facility] [address] [id number] [place] [address]- 3271 Aug, [facility] [address] [id number] [place] [address]- 5713 Aug, [facility] [address] [id number] [place] [address]- 1705 Aug, [facility] [place] [facility] [address] [id number] [place] [address]- 7080 Aug, [facility] [place] [facility] [address] [id number] [place] [address]- 9008 Aug, [facility] [place] [facility] [address] [id number] [place] [address]- 7064 Aug, [facility] [place] [facility] [address] [id number] [place] [address], [place] [address]- 2355 Jul, [facility] [place] [facility] [address] [id number] [place] [address]- 5277 Jul, [facility] [place] [facility] [address] [id number] [place] [address]- 0009 Jul, [facility] [place] [facility] [address] [id number] [place] [address]- 2029 Jul, [facility] [place] [facility] [address] [id number] [place] [address]- 1085 Jul, [facility] [place] [facility] [address] [id number] [place] [address]- 1605 Jul, [facility] [place] [facility] [address] [id number] [place] [address]- 8488 Jun, [facility] [place] [facility] [address] [id number] [place] [address]- 5610 Jun, [facility] [place] [facility] [address] [id number], [place] [address]- 2677 Jun, [facility] [place] [facility] [address] [id number] [place] [address]- 3502 Jun, [facility] [place] [facility] [address] [id number] [place] [address]- 0292 Jun, [facility] [place] [facility] [address] [id number] [place] [address]- 6800 Jun, [facility] [place] [facility] [address] [id number] [place] [address]- 4266 Jun, [facility] [place] [facility] [address] [id number] [place] [address]- 8423 10 Jun, 2012 [facility] [place] [facility] [address] [id number] [place] [address]- 5988 Jun, [facility] [place] [facility] [address] [id number] [place] [address]- 8146 26 May, 2012 [facility] [place] [facility] [address] [id number] [place] [address]- 2928 24 May, 2012 [facility] [place] [facility] [address] [id number] [place] [address]- 2979 May, [facility] [place] [facility] [address] [id number] [place] [address]- 0057 Apr, [facility] [place] [facility] [address] [id number] [place] [address]- 8073 Apr, [facility] [place] [facility] [address] [id number] [place] [address]- 1694 Apr, [facility] [place] [facility] [address] [id number] [place] [address]- 2751 Apr, [facility] [place] [facility] [address] [id number] [place] [address]- 4899 Apr, [facility] [place] [facility] [address] [id number] [place] [address]- 2723 Apr, [facility] [place] [facility] [address] [id number] [place] [address]- 1842 Mar, [facility] [place] [facility] [address] [id number] [place] [address]- 2587 Mar, [facility] [place] [facility] [address] [id number] [place] [address]- 8041 Mar, [facility] [place] [facility] [address] [id number] [place] [address]- 3953 Mar, [facility] [place] [facility] [address] [id number] [place] [address]- 5340 Feb, [facility] [address] [id number] [place] [address]- 9041 Feb, [facility] [address] [id number] [place] [address]- 1481 Feb, [facility] [address] [id number] [place] [address]- 0057 Feb, [facility] [address] [id number] [place] [address]- 1090 Feb, [facility] [address] [id number] [place] [address]- 5957 January, [facility] [address] [id number] [place] [address]- 3832 January, [facility] [address] [id number] [place] [address]- 0335 January, [facility] [address] [id number] [place] [address]- 9910 January, [facility] [address] [id number] [place] [address]- 2828 January, [facility] [address] [id number] [place] [address]- 4703 January, [facility] [address] [id number] [place] [address]- 3794 Dec, [facility] [address] [id number] [place] [address]- 2601 Dec, [facility] [place] [facility] [address] [id number] [place] [address]- 5074 Dec, [facility] [address] [id number] [place] [address]- 6657 Dec, [facility] [address] [id number] [place] [address]- 0726 Dec, [facility] [address] [id number] [place] [address]- 4258 27 Nov, 2011 [facility] [place] [facility] [address] [id number] [place] [address]- 7826 14 Nov, 2011 [facility] [place] [facility] [address] [id number] [place] [address]- 4956 12 Nov, 2011 [facility] [place] [facility] [address] [id number] [place] [address]- 1996 07 Nov, 2011 [facility] [place] [facility] [address] [id number] [place] [address]- 8365 29 Oct, 2011 [facility] [place] [facility] [address] [id number] [place] [address]- 8926 28 Oct, 2011 [facility] [place] [facility] [address] [id number] [place] [address]- 2496 24 Oct, 2011 [facility] [place] [facility] [address] [id number] [place] [address]- 8471 13 Oct, 2011 [facility] [place] [facility] [address] [id number] [place] [address]- 1205 08 Oct, 2011 [facility] [place] [facility] [address] [id number] [place] [address]- 1966 Sep, [facility] [place] [facility] [address] [id number] [place] [address]- 4786 Sep, [facility] [place] [facility] [address] [id number] [place] [address]- 9666 Sep, [facility] [place] [facility] [address] [id number] [place] [address]- 1612 Sep, [facility] [place] [facility] [address] [id number] [place] [address]- 8256 Sep, [facility] [place] [facility] [address] [id number] [place] [address]- 6106 Sep, [facility] [place] [facility] [address] [id number] [place] [address]- 0187 Aug, [facility] [place] [facility] [address] [id number] [place] 2408 Aug, [facility] [place] [facility] [address] [id number] [id number] [address] Aug, [facility] [place] [facility] [address] [id number] [place] [address] Jul, [facility] [place] [facility] [address] [id number] [place] [address] Jul, [facility] [place] [facility] [address] [id number] [place] [address] Jul, [facility] [place] [facility] [address] [id number] [place] [address] Jul, [facility] [place] [facility] [address] [id number] [place] [address] Jun, [facility] [place] [facility] [address] [id number] [place] [address] Jun, [facility] [place] [facility] [address] [id number] [place] [address] Jun, [facility] [place] [facility] [address] [facility] [id number] [place] [address] Jun, [facility] [place] [facility] [address] [id number] [place] [address] Jun, [facility] [place] [facility] [address] [id number] [place] [address] Jun, [facility] [place] [facility] [address] [id number] [place] [address] Mar, [facility] [place] [facility] [address] [id number] [place] [address] Dec, [facility] [place] [facility] [address] [id number] [place] [address] Dec, [facility] [place] [facility] [address] [id number] [place] [address] 18 Nov, 2010 [facility] [address] [id number] [place] [address] 16 Nov, 2010 [facility] [address] [id number] [place] [address] 10 Sep, 2010 [facility] [facility] [address] [id number] [place] [address] 31 Aug, 2010 [facility] [address] [id number] [place] [address] 29 Aug, 2010 [facility] [address] [id number] [place] [address] Aug, [facility] [address] [id number] [place] [address] Aug, [facility] [address] [id number] [place] [address] Aug, [facility] [address] [id number] [place] [address] 14 Aug, 2010 [facility] [address] [id number] [place] [address] Aug, [facility] [address] [id number] [place] [address] 08 Aug, 2010 [facility] [address] [id number] [place] [address] 07 Aug, 2010 [facility] [address] [id number] [place] [address] Aug, [facility] [place] [facility] [address] [id number] [place] [address] Aug, [facility] [address] [id number] [place] [address] Aug, [facility] [address] [id number] [place] [address] Jul, [facility] [place] [facility] [address] [id number] [place] [address] Jul, [facility] [place] [facility] [address] [id number] [place] [address] 30 Jul, 2010 [facility] [place] [facility] [address] [id number] [place] [address] Jul, [facility] [place] [facility] [address] [id number] [place] [address] Jul, [facility] [place] [facility] [address] [id number] [place] [address] Jul, [facility] [place] [facility] [address] [id number] [place] [address] 24 Jun, 2010 [facility] [place] [facility] [address] [id number] [place] [address] Jun, [facility] [place] [facility] [address] [id number] [place] [address] Jun, [facility] [place] [facility] [address] [id number] [place] [address] Jun, [facility] [place] [facility] [address] [id number] [place] [address] Apr, [facility] [place] [facility] [address] [id number] [address] Mar, [facility] [place] [facility] [address] [id number] [place] [address] Feb, [facility] [place] [facility] [address] [id number] [place] [address] January, [facility] [place] [facility] [address] [id number] [place] [address]- [address] 15 Dec, 2009 [facility] [place] [facility] [address] [id number] [place] [address]- [address] Nov, [facility] [place] [facility] [address] [id number] [place] [address]- [address] 31 Aug, 2009 [facility] [address] [id number] [place] [address]- [address] Aug, [facility] [place] [facility] [address] [id number] [place] [address]- 2496 Aug, [facility] [address] [id number] [place] [address] Jul, [facility] [place] [facility] [address] [id number] [place] [address] Jul, [facility] [address] [id number] [place] [address] Jul, [facility] [place] [facility] [address] [facility] [id number] [place] [address]45 Jun, [facility] [place] [facility] [address] [id number] [place] [address] Jun, [facility] [address] [id number] [place] [address]- [address] Jun, [facility] [place] [facility] [address] [facility] [id number] [place] [address]- [address] Jun, [facility] [address] [facility] [id number], [place] [address] Jun, [facility] [place] [facility] [address] [id number], [place] [address] Jun, [facility] [place] [facility] [address] [id number], [place] [address] Apr, [facility] [place] [facility] [address] [id number] [place] [address]13 Apr, [facility] [place] [facility] [address] [facility] [id number], [place] [address] Feb, [facility] [place] [facility] [address] [id number] [address] January, [facility] [address] [facility] [id number] [place] [address] Dec, IMMUNIZATIONS No Known Immunizations SOCIAL HISTORY Never Assessed REASON FOR VISIT Refill request PLAN OF CARE VITAL SIGNS MEDICATIONS Unknown [...] 2009 Surgical History colonoscopy 2009 ([facility]), 2013 ([facility]) Surgical History heart cath: CAD w/ PTCA [...]
--- OUTSIDE RECORDS SUMMARY | 2018-08-08 12:48 | XMS REPORT ---
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 Name Role Phone NOEMI WASHBURN Unavailable PROBLEMS Type Condition ICD9-CM Code ZMM41-SA Code Onset Dates Condition Status SNOMED Code Problem Chronic lymphocytic leukemia C91.10 Active 53380788 Problem Insomnia, unspecified type G47.00 Active 038160404 Problem Lymphocytosis D72.820 Active 03319803 Problem Anxiety F41.9 Active 31944285 Problem Eye exam abnormal R93.8 Active 624917806 Problem Morbid obesity E66.01 Active 351182142 Problem Diabetic polyneuropathy associated with type 2 diabetes mellitus E11.42 Active 19723569 Problem Essential hypertension I10 Active 71616992 Problem Falling R29.6 Active 939654340 Problem 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 Active 544217456 Problem Cough R05 Active 54133433 Problem Dysuria R30.0 Active 88665482 Problem Eustachian tube dysfunction, unspecified laterality H69.80 Active 93057707 Problem Bilateral primary osteoarthritis of knee M17.0 Active 240554519 Problem Polyneuropathy associated with underlying disease G63 Active 511911498 Problem Anemia of chronic illness D63.8 Active 063038146 Problem Retinal edema H35.81 Active 1980136 Problem DM neuro manif type II E11.49 Active 11763075 Problem Diabetes E11.9 Active 27970677 Problem Hypokalemia E87.6 Active 31015609 Problem Benign prostatic hyperplasia with lower urinary tract symptoms, unspecified morphology N40.1 Active 873091579 Problem Reactive airway disease J45.909 Active 311571611563 Problem Bipolar I disorder, most recent episode (or current) mixed, moderate F31.62 Active 92314899 Problem Chronic pain G89.29 Active 11871722 Problem Leukocytosis D72.829 Active 805065281 ALLERGIES No Information ENCOUNTERS Encounter Location Date Diagnosis [facility] [address] [address] Mar, [facility] [address] [address] Mar, [facility] [address] [address] Mar, [facility] [address] [address] Mar, [facility] [address] [address] Feb, [facility] [address] [address] Feb, Chronic pain G89.29 [facility] [address] [address] Feb, Decubitus ulcer of right foot, stage 3 L89.893 and BMI 50.0- 59.9, adult Z68.43 [facility] [address] [address] Feb, Bipolar I disorder, most recent episode (or current) mixed, moderate F31.62 [facility] [address] [address] Feb, [facility] [address] [address] January, [facility] [id number] [address] January, Chronic pain G89.29 [facility] [address] [address] January, Bipolar I disorder, most recent episode (or current) mixed, moderate F31.62 [facility] [id number] [address]001 January, Bipolar I disorder, most recent episode (or current) mixed, moderate F31.62 [facility] [address] [place] [address] 31654- 9559 Dec, Bipolar I disorder, most recent episode (or current) mixed, moderate F31.62 and BMI 50.0-59.9, adult Z68.43 [facility] [id number] [place] [address] 93246- 7765 Dec, Bipolar I disorder, most recent episode (or current) mixed, moderate F31.62 [facility] [id number] [place] [address] 70550- 1684 Dec, Chronic pain G89.29 [facility] [id number] [place] [address] 12730- 1640 Dec, DM neuro manif type II E11.49 ; Right flank pain R10.9 ; 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 ; Encounter for medication monitoring Z51.81 and BMI 50.0-59.9, adult Z68.43 [facility] [id number] [place] [address] 41552- 0462 Dec, Bipolar I disorder, most recent episode (or current) mixed, moderate F31.62 [facility] [id number] [place] [address] 14859- 7971 Nov, Bipolar I disorder, most recent episode (or current) mixed, moderate F31.62 [facility] [id number] [place] [address] 37559- 5544 Nov, Chronic pain G89.29 [facility] [id number] [place] [address] 07639- 2004 Nov, Bipolar I disorder, most recent episode (or current) mixed, moderate F31.62 [facility] [id number] [place] [address] 07723- 6204 Nov, Hypokalemia E87.6 [facility] [id number] [place] [address] 61914- 8354 Nov, Bipolar I disorder, most recent episode (or current) mixed, moderate F31.62 [facility] [address] [address]36- 2740 Oct, Chronic pain G89.29 [facility] [address] 38349- 6145 Oct, BMI 50.0-59.9, adult Z68.43 and Bipolar I disorder, most recent episode (or current) mixed, moderate F31.62 [facility] [address] 99931- 8454 Oct, Bipolar I disorder, most recent episode (or current) mixed, moderate F31.62 [facility] [address] 46800- 4752 Oct, [facility] [address] 6[address]79- 2865 Oct, Hypokalemia E87.6 [facility] [address] [address]- 6074 Oct, DM neuro manif type II E11.49 [facility] [address] 09466- 8907 Oct, Bipolar I disorder, most recent episode (or current) mixed, moderate F31.62 [facility] [address] 05862- 5169 Oct, Bipolar I disorder, most recent episode (or current) mixed, moderate F31.62 [facility] [address] 16138- 1727 14 Oct, 2017 Hyperkalemia E87.5 ; Falling R29.6 ; BMI 50.0-59.9, adult Z68.43 and Acute left ankle pain M25.572 [facility] [address] 69778- 0552 08 Oct, 2017 DM neuro manif type II E11.49 [facility] [id number] [place] [address] 85537- 4155 Oct, [facility] [id number] [place] [address] 80619- 9644 Sep, Chronic pain G89.29 [facility] [id number] [place] [address] 41638- 5157 Sep, [facility] [address] 16671- 3909 Sep, Bilateral primary osteoarthritis of knee M17.[address] [address]- 6718 Sep, Generalized edema R60.1 [facility] [id number] [place] [address] 54683- 7780 Sep, Bipolar I disorder, most recent episode (or current) mixed, moderate F31.62 [facility] [id number] [place] [address] 91198- 8333 Sep, Hypoxia R09.02 ; Other hypervolemia E87.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 ; Anemia of chronic illness D63.8 and BMI 50.0- 59.9, adult Z68.43 [place] [id number] [place] [address] 40590- 0336 Sep, [facility] [id number] [place] [address] 25108- 2855 Sep, Bipolar I disorder, most recent episode (or current) mixed, moderate F31.62 [facility] [id number] [place] [address] 70517- 0827 Aug, Chronic pain G89.29 [facility] [id number] [place] [address] 22675- 4335 Aug, Generalized edema R60.1 [facility] [address] [address]- 0920 Aug, [facility] [id number] [place] [address] 64270- 8064 Aug, [facility] [id number] [place] [address] 06454- 7889 Aug, Bipolar I disorder, most recent episode (or current) mixed, moderate F31.62 [facility] [id number] [place] [address] 92974- 5875 Aug, Bipolar I disorder, most recent episode (or current) mixed, moderate F31.62 [facility] [id number] [place] [address] 88237- 8502 Aug, Chronic pain G89.29 [facility] [id number] [place] [address] 41367- 6879 Jul, Bipolar I disorder, most recent episode (or current) mixed, moderate F31.62 [facility] [address] [place] [address] 62064- 2442 Jul, Bipolar I disorder, most recent episode (or current) mixed, moderate F31.62 and BMI 60.0-69.9, adult Z68.44 [facility] [id number] [place] [address] 83380- 0872 Jul, Bipolar I disorder, most recent episode (or current) mixed, moderate F31.62 [facility] [facility] [address] [place] [address] 76740- 7070 Jul, Chronic pain G89.29 [facility] [id number] [place] [address] 98922- 5846 Jul, Bipolar I disorder, most recent episode (or current) mixed, moderate F31.62 [facility] [address] [place] [address] 91366- 7022 Jun, Polyneuropathy associated with underlying disease G63 and Diabetes E11.9 [facility] [address] [address]- 0266 16 Jun, 2017 Bipolar I disorder, most recent episode (or current) mixed, moderate F31.62 [facility] [address] [address]- 4204 09 Jun, 2017 Chronic pain G89.29 [facility] [id number] [place] [address] 93959- 5457 27 May, 2017 Bipolar I disorder, most recent episode (or current) mixed, moderate F31.62 [facility] [id number] [place] [address] 66910- 4208 21 May, 2017 Bipolar I disorder, most recent episode (or current) mixed, moderate F31.62 [facility] [id number] [place] [address] 26267- 5608 20 May, 2017 Diabetic polyneuropathy associated with type 2 diabetes mellitus E11.42 [facility] [id number] [place] [address] 26855- 4496 18 May, 2017 Bipolar I disorder, most recent episode (or current) mixed, moderate F31.62 [facility] [address] [place] [address] 80025- 0339 13 May, 2017 Bipolar I disorder, most recent episode (or current) mixed, moderate F31.62 [facility] [address] [place] [address] 82588- 3788 May, Chronic pain G89.29 [facility] [address] [place] [address] 14665- 9220 Apr, Bipolar I disorder, most recent episode (or current) mixed, moderate F31.62 [facility] [address] [place] [address] 44218- 6519 Apr, [facility] [address] [place] [address] 43073- 4655 Apr, Chronic pain G89.29 and DM neuro manif type II E11.49 [facility] [address] [place] [address] 28906- 1907 Apr, [facility] [id number] [place] [address]- 220 Apr, Bipolar I disorder, most recent episode (or current) mixed, moderate F31.62 [facility] [id number] [place] [address] 648461- 7350 Apr, Chronic pain G89.29 [facility] [id number] [place] [address] 96845- 1223 Apr, Iliotibial band syndrome, left M76.32 [facility] [id number] [place] [address] 1523 Apr, Bipolar I disorder, most recent episode (or current) mixed, moderate F31.62 [facility] [id number] [place] [address] 20524- 5432 Mar, Bipolar I disorder, most recent episode (or current) mixed, moderate F31.62 [facility] [id number] [place] [address] 26258- 1833 Mar, Bipolar I disorder, most recent episode (or current) mixed, moderate F31.62 [facility] [address] [place] [address] 80306- 5452 Mar, [facility] [id number] [place] [address] 279110- 1382 Mar, Bipolar I disorder, most recent episode (or current) mixed, moderate F31.62 [facility] [id number] [place] [address] 04896- 0466 Mar, Chronic pain G89.29 [facility] [id number] [place] [address] 44740- 3799 Mar, Bipolar I disorder, most recent episode (or current) mixed, moderate F31.62 [facility] [id number] [address]- 5002 Mar, Bipolar I disorder, most recent episode (or current) mixed, moderate F31.62 [facility] [id number] [place] [address] 05197- 4986 Mar, Acute pain of left knee M25.562 ; Left hip pain M25.552 ; Generalized edema R60.1 and Tongue swelling R22.0 [facility] [facility] [id number] [place] [address] 25175- 3245 Mar, [facility] [id number] [place] [address] 66274- 1551 Feb, Chronic pain G89.29 [facility] [id number] [place] [address] 41544- 5793 Feb, Diabetes E11.9 [facility] [id number] [place] [address] 45342- 5436 January, Chronic pain G89.29 [facility] [id number] [place] [address] 65389- 6905 January, [facility] [id number] [place] [address] 58394- 2425 January, Bipolar I disorder, most recent episode (or current) mixed, moderate F31.62 [facility] [facility] [address] [place] [address] 08323- 1045 Dec, Bipolar I disorder, most recent episode (or current) mixed, moderate F31.62 [facility] [address] [place] [address] 58751- 5247 Dec, Chronic pain G89.29 [facility] [id number] [place] [address] 70199- 0596 Dec, Bipolar I disorder, most recent episode (or current) mixed, moderate F31.62 [facility] [id number] [place] [address] 71281- 6425 Dec, Diabetes E11.9 ; Essential hypertension I10 ; Chronic pain G89.29 and Morbid obesity E66.01 [facility] [id number] [place] [address] 29736- 6238 Dec, [facility] [id number] [place] [address] 78661- 9104 Dec, Bipolar I disorder, most recent episode (or current) mixed, moderate F31.62 [facility] [id number] [place] [address] 65446- 8866 Dec, Bipolar I disorder, most recent episode (or current) mixed, moderate F31.62 [facility] [id number] [place] [address] 40818- 0293 Nov, Chronic pain G89.29 [facility] [id number] [place] [address] 52608- 4838 Nov, Bipolar I disorder, most recent episode (or current) mixed, moderate F31.62 [facility] [address] [place] [address] 70139- 6556 Nov, [facility] [id number] [place] [address] 43455- 7170 Nov, Bipolar I disorder, most recent episode (or current) mixed, moderate F31.62 [facility] [address] [address]- 4141 Nov, Bipolar I disorder, most recent episode (or current) mixed, moderate F31.62 [facility] [address] [address]- 0887 Nov, [facility] [id number] [place] [address] 13346- 7518 Nov, [facility] [id number] [place] [address] 82767- 5831 Nov, [facility] [id number] [place] [address] 94157- 7434 Oct, Chronic pain G89.29 [facility] [id number] [place] [address] 80572- 9199 Oct, Bipolar I disorder, most recent episode (or current) mixed, moderate F31.62 [facility] [id number] [place] [address] 21737- 6688 Oct, [facility] [address] 07876- 9090 Oct, Chronic pain G89.29 ; Diabetes E11.9 ; Anxiety F41.9 and 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 [facility] [id number] [place] [address] 15138- 4126 Oct, [facility] [id number] [place] [address] 25817- 4592 Oct, Diabetes E11.9 [facility] [id number] [place] [address] 94231- 4344 Oct, Bipolar I disorder, most recent episode (or current) mixed, moderate F31.62 [facility] [id number] [place] [address] 99451- 4266 Sep, Chronic pain G89.29 [facility] [id number] [place] [address] 24400- 3986 Sep, Chronic pain G89.29 [facility] [id number] [place] [address] 91601- 3147 Aug, Chronic pain G89.29 [facility] [id number] [place] [address] 94189- 0193 Jul, [facility] [id number] [place] [address] 41444- 3492 Jul, Diabetes E11.9 [facility] [id number] [place] [address] 19536- 0303 Jul, Chronic pain G89.29 [facility] [address] [place] [address] 37452- 9868 Jul, Bipolar I disorder, most recent episode (or current) mixed, moderate F31.62 [facility] [id number] [place] [address] 49485- 2890 Jun, Bipolar I disorder, most recent episode (or current) mixed, moderate F31.62 [facility] [id number] [place] [address] 18462- 8050 Jun, [facility] [facility] [id number] [place] [address] 99012- 1988 Jun, Bipolar I disorder, most recent episode (or current) mixed, moderate F31.62 [facility] [id number] [place] [address] 19666- 9862 30 May, 2016 Insomnia, unspecified type G47.00 [facility] [id number] [place] [address] 40266- 3372 May, Bipolar I disorder, most recent episode (or current) mixed, moderate F31.62 [facility] [id number] [place] [address] 75537- 3925 14 May, 2016 [place] [id number] [place] [address] 12674- 2792 08 May, 2016 Bipolar I disorder, most recent episode (or current) mixed, moderate F31.62 [facility] [id number] [place] [address] 58345- 5416 06 May, 2016 Diabetes E11.9 and Essential hypertension I10 [facility] [id number] [place] [address] 71525- 0851 Apr, Chronic pain G89.29 [facility] [id number] [place] [address] 41635- 9017 Apr, Bipolar I disorder, most recent episode (or current) mixed, moderate F31.62 [facility] [id number] [place] [address] 93932- 9544 Apr, [facility] [facility] [id number] [place] [address] 42201- 3665 Apr, [facility] [id number] [place] [address] 37053- 6563 Mar, Chronic pain G89.29 ; Headache, unspecified headache type R51 ; Neuropathy G62.9 ; Pain of right hip joint M25.551 and Essential hypertension I10 [facility] [id number] [place] [address] 16884- 9799 Mar, Chronic pain G89.29 [place] [address] 19166- 8535 Mar, Bipolar I disorder, most recent episode (or current) mixed, moderate F31.62 [place] [address] 10843- 1890 Feb, Bipolar I disorder, most recent episode (or current) mixed, moderate F31.62 and Insomnia, unspecified type G47.00 [facility] [id number] [place] [address] 54142- 0174 Feb, Chronic pain G89.29 [facility] [facility] [id number] [place] [address] 61717- 9282 Feb, Bipolar I disorder, most recent episode (or current) mixed, moderate F31.62 [facility] [id number] [place] [address] 23034- 8902 January, Bipolar I disorder, most recent episode (or current) mixed, moderate F31.62 [facility] [id number] [place] [address] 31309- 7100 January, Chronic pain G89.29 [facility] [id number] [place] [address] 58431- 2347 January, Chronic pain G89.29 and Essential hypertension I10 [place] [address] [place] [address]- 0661 January, Bipolar I disorder, most recent episode (or current) mixed, moderate F31.62 [facility] [id number] [place] [address] 49355- 4217 Dec, [facility] [id number] [place] [address] 73202- 5044 Dec, [facility] [id number] [place] [address] 27556- 2115 Dec, [facility] [id number] [place] [address] 74904- 2700 Dec, [facility] [id number] [place] [address] 95784- 2339 Nov, Reactive airway disease J45.909 [facility] [id number] [place] [address] 90727- 1574 Nov, [facility] [id number] [place] [address] 49767- 5833 Nov, [facility] [id number] [place] [address] 44580- 1993 Nov, [facility] [id number] [place] [address] 12041- 5688 Nov, [facility] [id number] [place] [address] [id number]- [id number] Nov, Onychomycosis B35.1 ; [place] M20.40 ; [place] or callus L84 and DM neuro manif type II E11.49 [facility] [id number] [place] [address] [phone] Nov, Chronic pain G89.29 ; Leukocytosis D72.829 and Diabetes E11.9 [facility] [id number] [place] [address] [phone] Nov, [facility] [id number] [place] [address] [phone] Oct, Bronchitis J40 [facility] [id number] [place] [address] [phone] Oct, [facility] [id number] [place] [address] [phone] Oct, [facility] [id number] [place] [address] [phone] Oct, Mastoiditis, unspecified laterality H70.90 and Type 2 diabetes mellitus with complication E11.8 [place] [id number] [place] [address] 70655- 9397 Sep, [place] [address] [address]- 4860 Sep, Dysuria R30.0 ; Cough R05 ; Benign prostatic hyperplasia with lower urinary tract symptoms, unspecified morphology N40.1 ; Hypokalemia E87.6 and Eustachian tube dysfunction, unspecified laterality H69.80 [place] [address] [place] [id number] [place] [address] 61209- 4589 Sep, Moderate mixed bipolar I disorder F31.62 [place] [address] [place] [id number] [place] [address] 06873- 6584 Sep, Hypokalemia E87.6 [place] [address] [place] [id number] [place] [address] 70961- 3108 Sep, [place] [address] [place] [address] [id number] [place] [address] 48891- 7719 Sep, Upper respiratory tract infection, unspecified type J06.9 [place] [address] [place] [id number] [place] [address] 83600- 2242 Aug, [place] [address] [place] [id number] [place] [address] 95711- 4021 Aug, Dysuria R30.0 [place] [address] [place] [address] [id number] [place] [address] 78783- 4122 Aug, [facility] [address] [address] 0944 Jul, [facility] [address] [address]- 0808 Jul, [facility] [address] 1346 Jul, [facility] [id number] [place] [address] 365068- 7251 Jul, [facility] [id number] [place] [address] 88224- 6955 Jun, [facility] [id number] [place] [address] 89951- 0432 Jun, [facility] [address] [address]- 9279 Jun, [facility] [id number] [place] [address] 55370- 1239 May, [facility] [address] [address]- 5822 May, Bipolar I disorder, most recent episode (or current) mixed, moderate 296.62 [facility] [address] [address]- 1164 May, [facility] [address] [address]- 4326 May, Bipolar I disorder, most recent episode (or current) mixed, moderate 296.62 and Major depressive disorder, recurrent episode, severe, specified as with psychotic behavior 296.34 [facility] [address] [address]- 9778 May, Bipolar I disorder, most recent episode (or current) mixed, moderate 296.62 [facility] [address] [address]- 2016 May, [facility] [address] [address]- 7405 Apr, [facility] [id number] [place] [address] 05457- 6242 Apr, [facility] [address] [place] [id number] [place] [address] 46996- 1531 Apr, Unspecified disorder of kidney and ureter 593.9 and Diabetes mellitus type 2, uncontrolled 250.02 [facility] [id number] [place] [address] 40586- 3263 Apr, [facility] [id number] [place] [address] 90832- 1742 Apr, [facility] [address] [place] [id number] [place] [address] 83921- 4965 Apr, [facility] [address] [place] [id number] [place] [address] 66859- 6166 Apr, [facility] [id number] [place] [address] 24699- 2351 Apr, Diabetes mellitus type II, uncontrolled 250.02 [facility] [id number] [place] [address] 28412- 5076 Apr, [facility] [address] [address]- 2612 Mar, [facility] [address] [address]- 4146 Mar, [facility] [address] [address]- 9010 Mar, [facility] [address] [place] [address] 25479- 8846 Mar, Major depressive disorder, recurrent episode, severe, specified as with psychotic behavior 296.34 and Bipolar I disorder, most recent episode (or current) mixed, moderate 296.62 [facility] [address] [place] [address] 71515- 8091 Mar, Diabetes 250.00 ; Anuria 788.5 ; Nausea and vomiting 787.01 and Diarrhea 787.91 [facility] [address] [place] [id number] [place] [address] 17351- 7888 Mar, Diabetes 250.00 [facility] [address] [place] [id number] [place] [address] 47996- 1604 Mar, [facility] [address] [place] [id number] [place] [address] 80381- 4260 Mar, Diabetes 250.00 [facility] [address] [place] [id number] [place] [address] 79686- 5642 Mar, [facility] [address] [place] [id number] [place] [address] 30653- 5591 Mar, [facility] [address] [place] [id number] [place] [address] 53263- 0014 Mar, [facility] [address] [place] [id number] [place] [address] 99888- 3554 Mar, [facility] [address] [place] [id number] [place] [address] 72311- 3917 Mar, Bipolar I disorder, most recent episode (or current) mixed, moderate 296.62 and Major depressive disorder, recurrent episode, severe, specified as with psychotic behavior 296.34 [place] [id number] [place] [address] 06401- 3640 Mar, Magnesium deficiency 275.2 ; Hypokalemia 276.8 ; Nausea & vomiting 787.01 and Diabetes mellitus type 2, uncontrolled 250.02 [facility] [address] [address]- 0778 Feb, [facility] [address] [place] [id number] [place] [address] 19318- 6427 Feb, Bipolar I disorder, most recent episode (or current) mixed, moderate 296.62 [facility] [address] [place] [id number] [place] [address] 46323- 3866 Feb, Nausea and vomiting 787.01 ; Left elbow pain 719.42 ; Anuria 788.5 and Diabetes 250.00 [facility] [address] [place] [address] [id number] [place] [address] 43580- 0565 Feb, [facility] [address] [place] [id number] [place] [address] 36513- 2958 Feb, Hypopotassemia 276.8 and Hypokalemia 276.8 [facility] [address] 88377- 3826 Feb, Hypopotassemia 276.8 and Hypokalemia 276.8 [facility] [address] 83044- 4584 Feb, Seborrheic keratoses 702.19 [facility] [address] [place] [id number] [place] [address] 33962- 7160 Feb, Hypopotassemia 276.8 and Low magnesium levels 275.2 [facility] [address] [place] [id number] [place] [address] 71842- 6870 January, [facility] [address] 62625- 5338 January, [facility] [address] [place] [id number] [place] [address] 02225- 4306 January, [facility] [address] [place] [id number] [place] [address] 58237- 2338 January, Scalp lesion 709.9 [facility] [address] [place] [id number] [place] [address] 45647- 2307 January, [facility] [address] [place] [id number] [place] [address] 51957- 9150 Dec, Tear of medial cartilage or meniscus of knee, current 836.0 and 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 [facility] [address] [place] [id number] [place] [address] 67636- 0464 Dec, [facility] [place] [facility] [address] [id number] [place] [address]- 2090 29 Dec, 2014 [facility] [place] [facility] [address] [id number] [place] [address]- 3872 28 Dec, 2014 Squamous cell carcinoma, 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 [facility] [place] [facility] [address] [id number] [place] [address]- 1463 14 Dec, 2014 [facility] [place] [facility] [address] [id number] [place] [address]- 4894 Dec, [facility] [place] [facility] [address] [id number] [place] [address]- 7469 Nov, [facility] [place] [facility] [address] [id number] [place] [address]- 7043 Nov, [facility] [place] [facility] [address] [id number] [place] [address]- 1658 Nov, [facility] [place] [facility] [address] [id number] [place] [address]- 5253 Nov, [facility] [place] [facility] [address] [id number] [place] [address]- 7035 Nov, [facility] [place] [facility] [address] [id number] [place] [address]- 4344 Nov, [facility] [place] [facility] [address] [id number] [place] [address]- 7548 Nov, [facility] [place] [facility] [address] [id number] [address]- 5650 Nov, [facility] [place] [facility] [address] [id number] [place] [address]- 7187 Nov, [facility] [place] [facility] [address] [id number] [place] 8104 Nov, [facility] [place] [facility] [address] [id number] [place] [address]- 2750 Nov, [facility] [place] [facility] [address] [id number] [place] [address]- 0628 Nov, [facility] [place] [facility] [address] [id number] [place] [address]- 9835 Oct, 2014 [facility] [place] [facility] [address] [id number] [place] [address]- 5966 Oct, 2014 [facility] [place] [facility] [address] [id number] [place] [address]- 8076 Oct, 2014 [facility] [place] [facility] [address] [id number] [place] [address]- 8311 Oct, 2014 [facility] [place] [facility] [address] [id number] [place] [address]- 7932 Oct, 2014 [facility] [place] [facility] [address] [facility] [id number] [place] [address]- 3391 Oct, 2014 [facility] [place] [facility] [address] [id number] [place] [address]- 4832 Oct, 2014 [facility] [place] [facility] [address] [id number] [place] [address]- 6542 Oct, [facility] [place] [facility] [address] [facility] [id number] [place] [address]- 5068 Oct, [facility] [place] [facility] [address] [facility] [id number] [place] [address]- 6509 Sep, [facility] [place] [facility] [address] [facility] [id number] [place] [address]- 2549 Sep, [facility] [place] [facility] [address] [id number] [place] [address]- 8762 Sep, [facility] [place] [facility] [address] [id number] [place] [address]- 7373 Sep, [facility] [place] [facility] [address] [facility] [id number] [place] [address]- 5044 Sep, [facility] [place] [facility] [address] [id number] [place] [address]- 8933 Sep, [facility] [place] [facility] [address] [id number] [place] [address]- 0979 Sep, [facility] [place] [facility] [address] [id number] [place] [address]- 7796 Sep, [facility] [place] [facility] [address] [id number] [place] [address]- 8499 Sep, [facility] [place] [facility] [address] [id number] [place] [address]- 0050 Sep, [facility] [place] [facility] [address] [id number] [place] [address]- 6457 Sep, [facility] [place] [facility] [address] [id number] [place] [address]- 3595 Sep, [facility] [place] [facility] [address] [id number] [place] [address]- 8893 Sep, [facility] [place] [facility] [address] [id number] [address]- 1274 Sep, [facility] [place] [facility] [address] [id number] [place] [address]- 4203 Sep, [facility] [place] [facility] [address] [id number] [place] [address]- 8780 Sep, [facility] [place] [facility] [address] [id number] [address]- 4602 Aug, [facility] [place] [facility] [address] [id number] [address]- 9394 Aug, [facility] [place] [facility] [address] [id number] [place] [address]- 1532 Aug, [facility] [place] [facility] [address] [id number] [place] [address]- 6037 Aug, [facility] [place] [facility] [address] [id number] [place] [address]- 8833 Aug, [facility] [place] [facility] [address] [id number] [place] [address]- 2379 Aug, [facility] [address] [id number] [place] [address]- 2160 Aug, [facility] [address] [id number] [place] [address]- 0632 Aug, [facility] [address] [id number] [place] [address]- 1512 Aug, [facility] [address] [id number] [place] [address]- 0611 Aug, [facility] [address] [id number] [place] [address]- 7998 Aug, [facility] OP [address] [place] [address] [id number] Aug, [facility] [place] [address] [id number] [place] [address]- 6625 Aug, [facility] [address] [id number] [place] [address]- 3843 Aug, [facility] [address] [id number] [place] [address]- 4899 Aug, [facility] [address] [id number] [place] [address]- 8844 Aug, [facility] [address] [id number] [place] [address]- 8581 Aug, [facility] [address] [id number] [place] [address]- 2886 Aug, [facility] [address] [id number] [place] [address]- 6312 Aug, [facility] [address] [id number] [place] [address]- 0773 Aug, [facility] [address] [id number] [place] [address]- 9593 Aug, [facility] [place] [facility] [address] [id number] [place] [address]- 3776 08 Aug, 2014 [facility] [place] [facility] [address] [id number] [place] [address]- 6523 Aug, [facility] [place] [facility] [address] [id number] [place] [address]- 7095 Aug, [facility] [place] [facility] [address] [id number] [place] [address]- 5935 Aug, [facility] [place] [facility] [address] [id number] [place] [address]- 9411 Aug, [facility] [place] [facility] [address] [id number] [place] [address]- 0187 Aug, [facility] [place] [facility] [address] [id number] [place] [address]- 6950 Aug, [facility] [place] [facility] [address] [id number] [place] [address]- 2357 Aug, [facility] [place] [facility] [address] [id number] [place] [address]- 1099 Aug, [facility] [place] [facility] [address] [id number] [place] [address]- 9466 Jul, [facility] [place] [facility] [address] [id number] [place] [address]- 3209 Jul, [facility] [place] [facility] [address] [id number] [place] [address]- 7735 Jul, [facility] [place] [facility] [address] [id number] [place] [address]- 4375 Jul, [facility] [place] [facility] [address] [id number] [place] [address]- 0742 Jul, [facility] [place] [facility] [address] [id number] [place] [address]- 2142 Jul, [facility] [place] [facility] [address] [id number] [place] [address]- 8527 Jul, [facility] [place] [facility] [address] [id number] [place] [address]- 5340 Jul, [facility] [place] [facility] [address] [id number] [place] [address]- 7814 Jul, [facility] [place] [facility] [address] [id number] [place] 3661 Jul, [facility] [place] [facility] [address] [id number] [place] [address]- 7859 Jun, [facility] [place] [facility] [address] [id number] [place] [address]- 3671 Jun, [facility] [place] [facility] [address] [id number] [place] [address]- 4884 Jun, [facility] [place] [facility] [address] [id number] [place] [address]- 2220 Jun, [facility] [place] [facility] [address] [id number] [place] [address]- 5987 Jun, [facility] [place] [facility] [address] [id number] [place] [address]- 5024 Jun, [facility] [place] [facility] [address] [id number] [address]- 6155 Jun, [facility] [place] [facility] [address] [id number] [place] [address]- 0253 Jun, [facility] [place] [facility] [address] [id number] [place] [address]- 5283 Jun, [facility] [place] [facility] [address] [id number] [place] [address]- 0919 Jun, [facility] [place] [facility] [address] [id number] [address]- 7330 May, [facility] [place] [facility] [address] [id number] [place] [address]- 4154 May, [facility] [place] [facility] [address] [id number] [place] [address]- 2704 26 Sep, 2013 [facility] [place] [facility] [address] [id number] [place] [address] 2546 26 Sep, 2013 [facility] [place] [facility] [address] [id number] [place] [address] 2546 17 Sep, 2013 [facility] [place] [facility] [address] [id number] [place] [address] 2546 17 Sep, 2013 [facility] [place] [facility] [address] [id number] [place] [address] 2546 15 Sep, 2013 [facility] [place] [facility] [address] [id number] [place] [address] 2546 15 Sep, 2013 [facility] [place] [facility] [address] [id number] [place] [address] 2546 15 May, 2013 [facility] [place] [facility] [address] [id number] [place] [address]- 2551 15 May, 2013 [facility] [place] [facility] [address] [id number] [place] [address] 2545 10 May, 2013 [facility] [place] [facility] [address] [id number] [place] [address] 2549 10 May, 2013 [facility] [place] [facility] [address] [id number] [place] [address]- 2542 09 May, 2013 [facility] [place] [facility] [address] [id number] [place] [address] 254 09 May, 2013 [facility] [place] [facility] [address] [id number] [place] [address] 2547 04 May, 2013 [facility] [place] [facility] [address] [id number] [place] [address] 2542 04 May, 2013 [facility] [place] [facility] [address] [id number] [place] [address]- 9406 Apr, [facility] [place] [facility] [address] [id number] [place] [address]- 9266 Apr, [facility] [place] [facility] [address] [id number] [place] [address]- 3059 Apr, [facility] [place] [facility] [address] [id number] [place] [address]- 5289 Apr, [facility] [place] [facility] [address] [id number] [place] [address]- 5918 Apr, [facility] [place] [facility] [address] [id number] [place] [address]- 7455 Apr, [facility] [place] [facility] [address] [id number] [place] [address]- 7102 Apr, [facility] [place] [facility] [address] [id number] [place] [address]- 3291 Apr, [facility] [place] [facility] [address] [id number] [place] [address]- 6639 Apr, [facility] [place] [facility] [address] [id number] [place] [address]- 6358 Apr, [facility] [place] [facility] [address] [id number] [place] [address]- 5527 Apr, [facility] [place] [facility] [address] [id number] [place] [address]- 3958 Apr, [facility] [place] [facility] [address] [id number] [place] [address]- 1964 Apr, [facility] [place] [facility] [address] [id number] [place] [address]- 3568 Apr, [facility] [place] [facility] [address] [id number] [place] [address]- 1594 Apr, [facility] [place] [facility] [address] [id number] [place] [address]- 2078 Mar, [facility] [place] [facility] [address] [id number] [place] [address] Mar, [facility] [place] [facility] [address] [id number] [place] [address] Mar, 2013 [facility] [place] [facility] [address] [id number] [place] [address] Mar, 2013 [facility] [place] [facility] [address] [id number] [place] [address] Mar, 2013 [facility] [place] [facility] [address] [id number] [place] [address] Mar, 2013 [facility] [place] [facility] [address] [id number] [place] [address] Mar, 2013 [facility] [place] [facility] [address] [id number] [place] [address] Mar, 2013 [facility] [place] [facility] [address] [id number] [place] [address] Mar, 2013 [facility] [place] [facility] [address] [id number] [place] [address]- [address] Mar, 2013 [facility] [place] [facility] [address] [id number] [place] [address] Mar, 2013 [facility] [place] [facility] [address] [id number] [place] [address] Mar, 2013 [facility] [place] [facility] [address] [id number] [place] [address]- [address] Mar, 2013 [facility] [place] [facility] [address] [id number] [place] [address] Mar, 2013 [facility] [place] [facility] [address] [id number] [place] [address]- [address]67 Mar, 2013 [facility] [place] [facility] [address] [id number] [place] [address]- [address] Mar, 2013 [facility] [place] [facility] [address] [id number] [place] [address]- [address] Mar, 2013 [facility] [place] [facility] [address] [id number] [place] [address] Mar, 2013 [facility] [place] [facility] [address] [id number] [place] [address]- [address] Feb, [facility] [place] [facility] [address] [id number] [place] [address] Feb, [facility] [place] [facility] [address] [id number] [place] [address] Feb, [facility] [place] [facility] [address] [id number] [place] [address] Feb, [facility] [place] [facility] [address] [id number] [place] [address]- [address] Feb, [facility] [place] [facility] [address] [id number] [place] [address]- [address] Feb, [facility] [place] [facility] [address] [id number] [place] [address]- [address] Feb, [facility] [place] [facility] [address] [id number] [place] [address] Feb, [facility] [place] [facility] [address] [id number] [place] [address] Feb, [facility] [place] [facility] [address] [id number] [place] [address] Feb, [facility] [place] [facility] [address] [id number] [place] [address]- [address] Feb, [facility] [place] [facility] [address] [id number] [place] [address]- [address] Feb, [facility] [place] [facility] [address] [id number] [place] [address]- [address] Feb, [facility] [place] [facility] [address] [id number] [place] [address] Feb, [facility] [place] [facility] [address] [id number] [place] [address] January, [facility] [place] [facility] [address] [id number] [place] [address]- [address]68 January, [facility] [place] [facility] [address] [id number] [place] [address] January, [facility] [place] [facility] [address] [id number] [place] [address]- [address] January, [facility] [place] [facility] [address] [id number] [place] [address] January, [facility] [place] [facility] [address] [id number] [place] [address] January, [facility] [place] [facility] [address] [id number] [place] [address] January, [facility] [place] [facility] [address] [id number] [place] [address]- [address] January, [facility] [place] [facility] [address] [id number] [place] [address] January, [facility] [place] [facility] [address] [id number] [place] [address] January, [facility] [place] [facility] [address] [id number] [place] [address] January, [facility] [place] [facility] [address] [id number] [place] [address]- [address] January, [facility] [place] [facility] [address] [id number] [place] [address] January, [facility] [place] [facility] [address] [id number] [place] [address] January, [facility] [place] [facility] [address] [id number] [place] [address]- [address] Dec, [facility] [place] [facility] [address] [id number] [place] [address]- [address] Dec, [facility] [place] [facility] [address] [id number] [place] [address]- [address] Dec, [facility] [place] [facility] [address] [id number] [place] [address]- [address] Dec, [facility] [place] [facility] [address] [id number] [place] [address]- [address] Dec, [facility] [place] [facility] [address] [id number] [place] [address] Dec, [facility] [place] [facility] [address] [id number] [place] [address]- 80[address] Dec, [facility] [place] [facility] [address] [id number] [place] [address] Dec, [facility] [place] [facility] [address] [id number] [place] [address] 6[address] Dec, [facility] [place] [facility] [address] [id number] [place] [address] 0587 Dec, [facility] [place] [facility] [address] [id number] [place] [address] 8519 Nov, [facility] [place] [facility] [address] [id number] [place] [address]- 2677 Nov, [facility] [place] [facility] [address] [id number] [place] [address] 3970 Nov, [facility] [place] [facility] [address] [id number] [place] [address]- 7055 Nov, [facility] [place] [facility] [address] [id number] [place] [address] 6018 Nov, [facility] [place] [facility] [address] [id number] [place] [address]- 5724 Nov, [facility] [place] [facility] [address] [id number] [place] [address]- 4634 Nov, [facility] [place] [facility] [address] [id number] [place] [address]- 4623 Nov, [facility] [place] [facility] [address] [id number] [place] [address]- 6884 Nov, [facility] [place] [facility] [address] [id number] [place] [address]- 8872 Nov, [facility] [place] [facility] [address] [id number] [place] [address]- 7266 Oct, [facility] [place] [facility] [address] [id number] [place] [address]- 7386 Oct, [facility] [place] [facility] [address] [id number] [place] [address]- 7211 Oct, [facility] [place] [facility] [address] [id number] [place] [address]- 2549 Oct, [facility] [place] [facility] [address] [id number] [place] [address]- 9616 Oct, [facility] [place] [facility] [address] [facility] [id number] [place] [address]- 9174 Oct, [facility] [place] [facility] [address] [id number] [place] [address]- 4797 Oct, [facility] [place] [facility] [address] [id number] [place] [address] 9158 Oct, [facility] [place] [facility] [address] [facility] [id number] [place] [address]- 6656 Oct, [facility] [place] [facility] [address] [facility] [id number] [place] [address]- 9825 Oct, [facility] [place] [facility] [address] [facility] [id number] [place] [address]- 6428 Oct, [facility] [place] [facility] [address] [facility] [id number] [place] [address]- 6706 Oct, [facility] [place] [facility] [address] [id number] [place] [address]- 7141 Oct, [facility] [place] [facility] [address] [facility] [id number] [place] [address]- 9816 Oct, [facility] [place] [facility] [address] [id number] [place] [address]- 3207 20 Sep, 2013 [facility] [address] [id number] [place] [address]- 9361 20 Sep, 2013 [facility] [place] [facility] [address] [id number] [place] [address]- 8511 15 Sep, 2013 [facility] [address] [id number] [place] [address]- 9804 15 Sep, 2013 [facility] [place] [facility] [address] [id number] [place] [address]- 0620 14 Sep, 2013 [facility] [place] [facility] [address] [id number] [place] [address]- 7330 14 Sep, 2013 [facility] [place] [facility] [address] [id number] [place] [address]- 3140 14 Sep, 2013 [facility] [address] [id number] [place] [address]- 3390 14 Sep, 2013 [facility] [place] [facility] [address] [id number] [place] [address]- 7874 08 Sep, 2013 [facility] [place] [facility] [address] [id number] [place] [address]- 4683 08 Sep, 2013 [facility] [place] [facility] [address] [id number] [place] [address]- 5252 10 Aug, 2013 [facility] [place] [facility] [address] [id number] [place] [address]- 6370 Aug, [facility] [place] [facility] [address] [id number] [place] [address]- 6250 Jul, [facility] [place] [facility] [address] [id number] [place] [address]- 4152 Jul, [facility] [place] [facility] [address] [id number] [place] [address]- 0018 13 Jul, 2013 [facility] [place] [facility] [address] [id number] [place] [address]- 4232 Jul, [facility] [place] [facility] [address] [id number] [place] [address]- 5046 Jul, [facility] [place] [facility] [address] [id number] [place] [address]- 9983 Jul, [facility] [place] [facility] [address] [id number] [place] [address]- 1858 Jul, [facility] [place] [facility] [address] [id number] [place] [address]- 3012 Jul, [facility] [place] [facility] [address] [id number] [place] [address]- 3858 Jul, [facility] [place] [facility] [address] [id number] [place] [address]- 5750 Jul, [facility] [place] [facility] [address] [id number] [place] [address]- 8129 Jul, [facility] [place] [facility] [address] [id number] [place] [address]- 6586 Jul, [facility] [place] [facility] [address] [id number] [place] [address]- 6034 Jul, [facility] [place] [facility] [address] [id number] [place] [address]- 9094 Jul, [facility] [place] [facility] [address] [id number] [place] [address]- 2131 Jul, [facility] [place] [facility] [address] [id number] [place] [address]- 5920 Jul, [facility] [place] [facility] [address] [id number] [place] [address]- 1159 Jul, [facility] [place] [facility] [address] [id number] [place] [address]- 0374 Jul, [facility] [place] [facility] [address] [id number] [place] [address]- 8064 Jul, [facility] [place] [facility] [address] [id number] [place] [address]- 2275 16 Jun, 2012 [facility] [place] [facility] [address] [id number] [place] [address]- 3818 16 Jun, 2012 [facility] [place] [facility] [address] [id number] [place] [address]- 8363 16 Jun, 2012 [facility] [place] [facility] [address] [id number] [place] [address]- 9347 16 Jun, 2012 [facility] [place] [facility] [address] [id number] [place] [address] 16 Jun, 2012 [facility] [place] [facility] [address] [id number] [place] [address]- 2181 16 Jun, 2012 [facility] [place] [facility] [address] [id number] [place] [address]- 3209 Jun, 2012 [facility] [place] [facility] [address] [id number] [place] [address]- 6979 10 Jun, 2013 [facility] [place] [facility] [address] [id number] [place] [address]- 4544 09 Jun, 2013 [facility] [place] [facility] [address] [id number] [place] [address]- 9488 09 Jun, 2013 [facility] [place] [facility] [address] [id number] [place] [address]- 1831 Jun, [facility] [place] [facility] [address] [id number] [address]- 2609 26 May, 2012 [facility] [place] [facility] [address] [id number] [place] [address]- 4998 25 Sep, 2012 [facility] [place] [facility] [address] [id number] [place] [address]- 0871 19 Sep, 2012 [facility] [place] [facility] [address] [id number] [place] [address]- 5992 17 Sep, 2012 [facility] [place] [facility] [address] [id number] [place] [address]- 6497 11 Sep, 2012 [facility] [place] [facility] [address] [id number] [place] [address]- 5385 May, [facility] [address] [id number] [place] [address]- 6677 May, [facility] [place] [facility] [address] [id number] [place] [address]- 5626 May, [facility] [address] [id number] [place] [address]- 9491 Apr, [facility] [place] [facility] [address] [id number] [place] [address]- 0064 Apr, [facility] [address] [id number] [place] [address]- 8541 Apr, [facility] [place] [facility] [address] [id number] [place] [address]- 3412 Apr, [facility] [address] [id number] [place] [address]- 7986 Apr, [facility] [address] [id number] [place] [address]- 8224 Mar, [facility] [place] [facility] [address] [id number] [place] [address]- 7930 Mar, [facility] [address] [id number] [place] [address]- 4628 Mar, [facility] [place] [facility] [address] [id number] [place] [address]- 0973 Mar, [facility] [place] [facility] [address] [id number] [place] [address]- 1243 Mar, [facility] [place] [facility] [address] [id number] [place] [address]- 4497 Mar, [facility] [place] [facility] [address] [id number] [place] [address]- 2546 Mar, [facility] [place] [facility] [address] [id number] [place] [address]- 5264 Mar, [facility] [address] [id number] [place] [address]- 0655 Feb, [facility] [place] [facility] [address] [id number] [place] [address]- 5180 Feb, [facility] [address] [id number] [place] [address]- 3379 January, [facility] [place] [facility] [address] [id number] [place] [address]- 3235 January, [facility] [address] [id number] [place] [address]- 7041 Dec, [facility] [place] [facility] [address] [id number] [place] [address]- 2004 Dec, [facility] [address] [id number] [place] [address]- 9028 Nov, [facility] [place] [facility] [address] [id number] [place] [address]- 9308 Nov, [facility] [address] [id number] [place] [address]- 8945 Nov, [facility] [place] [facility] [address] [id number] [place] [address]- 2798 Nov, [facility] [place] [facility] [address] [id number] [place] [address]- 0557 Oct, [facility] [place] [facility] [address] [id number] [place] [address]- 0489 Oct, [facility] [place] [facility] [address] [id number] [place] [address]- 4435 Oct, [facility] [place] [facility] [address] [id number] [place] [address]- 0012 Oct, [facility] [place] [facility] [address] [id number] [place] [address]- 7231 Oct, [facility] [place] [facility] [address] [id number] [place] [address]- 5625 14 Oct, 2012 [facility] [address] [id number] [place] [address]- 7136 08 Oct, 2012 [facility] [address] [id number] [place] [address] 2546 07 Oct, 2012 [facility] [address] [id number] [place] [address]- 9976 03 Oct, 2012 [facility] [address] [id number] [place] [address]- 5852 30 Sep, 2012 [facility] [address] [id number] [place] [address]- 4976 29 Sep, 2012 [facility] [address] [id number] [place] [address]- 9187 23 Sep, 2012 [facility] [address] [id number] [place] [address]- 2352 Sep, [facility] [address] [id number] [place] [address]- 0149 17 Sep, 2012 [facility] [address] [id number] [place] [address]- 4164 Sep, [facility] [address] [id number] [place] [address]- 0673 Sep, [facility] [address] [id number] [place] [address]- 8918 Sep, [facility] [address] [id number] [place] [address] 2548 Aug, [facility] [address] [id number] [place] [address]- 4122 Aug, [facility] [address] [id number] [place] [address] 2546 Aug, [facility] [address] [id number] [place] 9014 Aug, [facility] [place] [facility] [address] [id number] [place] [address]- 5990 Aug, [facility] [place] [facility] [address] [id number] [place] [address]- 8585 Aug, [facility] [place] [facility] [address] [id number] [place] [address]- 4672 Aug, [facility] [place] [facility] [address] [id number] [place] [address]- 2951 Aug, [facility] [place] [facility] [address] [id number] [place] [address]- 7722 Jul, [facility] [place] [facility] [address] [id number] [place] [address]- 8329 Jul, [facility] [place] [facility] [address] [id number] [place] [address]- 1572 Jul, [facility] [place] [facility] [address] [id number] [place] [address]- 2714 Jul, [facility] [place] [facility] [address] [id number] [place] [address]- 7153 Jul, [facility] [place] [facility] [address] [id number] [place] [address]- 9241 Jul, [facility] [place] [facility] [address] [id number] [address]- 1483 Jun, [facility] [place] [facility] [address] [id number] [place] [address]- 4201 Jun, [facility] [place] [facility] [address] [id number] [place] [address]- 0667 Jun, [facility] [place] [facility] [address] [id number] [place] [address]- 2071 Jun, [facility] [place] [facility] [address] [id number] [place] [address]- 6289 Jun, [facility] [place] [facility] [address] [id number] [place] [address]- 5854 19 Jun, 2012 [facility] [place] [facility] [address] [id number] [place] [address]- 5634 19 Jun, 2012 [facility] [place] [facility] [address] [id number] [place] [address]- 4792 10 Jun, 2012 [facility] [place] [facility] [address] [id number] [place] [address]- 2466 10 Jun, 2012 [facility] [place] [facility] [address] [id number] [place] [address]- 5474 26 May, 2012 [facility] [place] [facility] [address] [id number] [place] [address]- 6093 24 May, 2012 [facility] [place] [facility] [address] [id number] [place] [address]- 0143 18 May, 2012 [facility] [place] [facility] [address] [id number] [place] [address]- 9908 30 Apr, 2012 [facility] [place] [facility] [address] [id number] [place] [address]- 5048 Apr, [facility] [place] [facility] [address] [id number] [place] [address]- 7074 Apr, [facility] [place] [facility] [address] [id number] [place] [address]- 1798 Apr, [facility] [place] [facility] [address] [id number] [place] [address]- 6474 Apr, [facility] [place] [facility] [address] [id number] [place] [address]- 2169 Apr, [facility] [place] [facility] [address] [id number] [place] [address]- 0019 Mar, [facility] [place] [facility] [address] [id number] [place] [address]- 2930 Mar, [facility] [place] [facility] [address] [id number] [place] [address]- 6546 Mar, [facility] [place] [facility] [address] [id number] [place] [address]- 0588 Mar, [facility] [place] [facility] [address] [id number] [place] [address]- 5563 Feb, [facility] [place] [facility] [address] [id number] [place] [address]- 7902 Feb, [facility] [place] [facility] [address] [id number] [place] [address]- 4747 Feb, [facility] [place] [facility] [address] [id number] [place] [address]- 9999 Feb, [facility] [place] [facility] [address] [id number] [place] [address]- 0694 Feb, [facility] [place] [facility] [address] [id number] [place] [address]- 5173 January, [facility] [place] [facility] [address] [id number] [place] [address]- 5210 January, [facility] [place] [facility] [address] [id number] [place] [address]- 2501 January, [facility] [place] [facility] [address] [id number] [place] [address]- 0578 January, [facility] [place] [facility] [address] [id number] [place] [address]- 5451 January, [facility] [place] [facility] [address] [id number] [place] [address]- 7866 January, [facility] [place] [facility] [address] [id number] [place] [address]- 9327 Dec, [facility] [place] [facility] [address] [id number] [place] [address]- 4739 Dec, [facility] [place] [facility] [address] [id number] [place] [address]- 2696 Dec, [facility] [place] [facility] [address] [id number] [place] [address]- 1720 Dec, [facility] [place] [facility] [address] [id number] [place] [address]- 9957 Dec, [facility] [place] [facility] [address] [id number] [place] [address]- 4626 27 Nov, 2011 [facility] [place] [facility] [address] [id number] [place] [address]- 9786 14 Nov, 2011 [facility] [place] [facility] [address] [id number] [place] [address]- 6707 12 Nov, 2011 [facility] [place] [facility] [address] [id number] [place] [address]- 1926 07 Nov, 2011 [facility] [place] [facility] [address] [id number] [place] [address]- 4082 29 Oct, 2011 [facility] [place] [facility] [address] [id number] [place] [address]- 2473 28 Oct, 2011 [facility] [place] [facility] [address] [id number] [place] [address]- 5273 24 Oct, 2011 [facility] [place] [facility] [address] [id number] [place] [address]- 6214 13 Oct, 2011 [facility] [place] [facility] [address] [id number] [place] [address]- 7573 08 Oct, 2011 [facility] [place] [facility] [address] [id number] [place] [address]- 9591 Sep, [facility] [place] [facility] [address] [id number] [place] [address]- 9402 30 Sep, 2011 [facility] [place] [facility] [address] [id number] [place] [address]- 3222 Sep, [facility] [place] [facility] [address] [id number] [place] [address]- 7637 Sep, [facility] [place] [facility] [address] [id number] [place] [address]- 7374 05 Sep, 2011 [facility] [place] [facility] [address] [id number] [place] [address]- 1626 Sep, [facility] [place] [facility] [address] [id number] [place] [address]- 5858 Aug, [facility] [place] [facility] [address] [id number] [place] [address]- 7274 Aug, [facility] [place] [facility] [address] [id number] [place] [address]- 5954 Aug, [facility] [place] [facility] [address] [id number] [place] [address]- 5632 Jul, [facility] [place] [facility] [address] [id number] [place] [address]- 8425 Jul, [facility] [place] [facility] [address] [id number] [place] [address]- 5065 Jul, [facility] [place] [facility] [address] [id number] [place] [address]- 0768 Jul, [facility] [place] [facility] [address] [id number] [place] [address]- 2989 Jun, [facility] [place] [facility] [address] [id number] [place] [address]- 3869 Jun, [facility] [place] [facility] [address] [id number] [place] [address] Jun, [facility] [place] [facility] [address] [id number] [place] [address] Jun, [facility] [place] [facility] [address] [id number] [place] [address] Jun, [facility] [place] [facility] [address] [id number] [place] [address] Jun, [facility] [place] [facility] [address] [id number] [place] [address] Mar, [facility] [place] [facility] [address] [id number] [place] [address] Dec, [facility] [address] [id number] [place] [address] 11 Dec, 2010 [facility] [place] [facility] [address] [id number] [place] [address] 18 Nov, 2010 [facility] [place] [facility] [address] [id number] [place] [address] 16 Nov, 2010 [facility] [place] [facility] [address] [id number] [place] [address] 10 Sep, 2010 [facility] [address] [id number] [place] [address] 7668 31 Aug, 2010 [facility] [place] [facility] [address] [id number] [place] [address] 3927 29 Aug, 2010 [facility] [place] [facility] [address] [id number] [place] [address] 120[address] 29 Aug, 2010 [facility] [place] [facility] [address] [id number] [place] [address] 150[address] 29 Aug, 2010 [facility] [place] [facility] [address] [id number] [place] [address] 27 Aug, 2010 [facility] [place] [facility] [address] [id number] [place] [address]70 14 Aug, 2010 [facility] [place] [facility] [address] [id number] [place] [address] 28[address] 08 Aug, 2010 [facility] [place] [facility] [address] [id number] [address] 08 Aug, 2010 [facility] [place] [facility] [address] [id number] [place] [address] 38[address] 07 Aug, 2010 [facility] [place] [facility] [address] [id number] [place] [address] 06 Aug, 2010 [facility] [place] [facility] [address] [id number] [place] [address] 8669 06 Aug, 2010 [facility] [place] [facility] [address] [id number] [place] [address] Aug, [facility] [place] [facility] [address] [id number] [place] [address] Jul, [facility] [place] [facility] [address] [id number] [place] [address] Jul, [facility] [place] [facility] [address] [id number] [place] [address] Jul, [facility] [place] [facility] [address] [id number] [place] [address] Jul, [facility] [place] [facility] [address] [id number] [place] [address] Jul, [facility] [place] [facility] [address] [id number] [place] [address] Jul, [facility] [place] [facility] [address] [id number] [place] [address] 24 Jun, 2010 [facility] [place] [facility] [address] [id number] [place] [address] Jun, [facility] [place] [facility] [address] [id number] [place] [address] Jun, [facility] [place] [facility] [address] [facility] [id number] [place] [address] Jun, [facility] [place] [facility] [address] [id number] [place] [address] 16 Apr, 2010 [facility] [place] [facility] [address] [id number] [address] Mar, [facility] [place] [facility] [address] [id number] [place] [address] Feb, [facility] [place] [facility] [address] [id number] [place] [address] January, [facility] [place] [facility] [address] [facility] [id number] [place] [address] 15 Dec, 2009 [facility] [place] [facility] [address] [id number] [place] [address] Nov, [facility] [place] [facility] [address] [id number] [place] [address] Aug, [facility] [place] [facility] [address] [id number] [place] [address] 73[address] Aug, [facility] [place] [facility] [address] [id number] [place] [address] Aug, [facility] [place] [facility] [address] [id number] [place] [address] Jul, [facility] [place] [facility] [address] [id number] [place] [address] Jul, [facility] [place] [facility] [address] [id number] [place] [address] Jul, [facility] [place] [facility] [address] [id number] [place] [address] 30 Jun, 2009 [facility] [place] [facility] [address] [id number] [place] [address]- [address] 29 Jun, 2009 [facility] [place] [facility] [address] [id number] [place] [address] 1604 Jun, [facility] [place] [facility] [address] [id number] [place] [address] Jun, [facility] [place] [facility] [address] [id number] [place] [address] Jun, [facility] [place] [facility] [address] [id number] [place] [address]- 59[address] Jun, [facility] [place] [facility] [address] [id number] [place] [address] Apr, [facility] [place] [facility] [address] [id number] [place] [address] Apr, [facility] [place] [facility] [address] [id number] [address] Feb, [facility] [address] [facility] [id number] [place] [address] January, [facility] [address] [facility] [id number] [place] [address] Dec, IMMUNIZATIONS No Known Immunizations SOCIAL HISTORY Never Assessed REASON FOR VISIT Triage--ADaviedRN PLAN OF CARE VITAL SIGNS MEDICATIONS Unknown [...] obesity Medical History skin cancer-basal cell R sabianist (removed) Medical History Arthritis Medical History degenerative [...] ([place]) 2009 Surgical History colonoscopy 2009 ([facility]), 2013 ([place]) Surgical History heart 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 04/2014 Surgical History carotid US 05/2014 Surgical History resection of skin cancer from Right sabianist Surgical History Biopsy of Lung Bilateral/Left lung lymph node 09/2016 Surgical History Bone Marrow Biopsy Surgical History port in the right chest wall 12/2016 Hospitalization History [facility] low potassium, low magnesium, chest painina 01/2015 Hospitalization History inability to urinate 09/16/[address] [facility] early Hospitalization History hyperkalemia 10/2017 Hospitalization History fluid in lung
--- OUTSIDE RECORDS SUMMARY | 2018-08-08 12:50 | XMS REPORT ---
Author Author CHESTER GLEZ Organization [facility] Address [address] [place] [address] Care Team Providers Care Electrical Engineering Intern Name Role Phone NEWTON CHESTER Unavailable PROBLEMS Type Condition ICD9-CM Code CAZ08-IY Code Onset Dates Condition Status SNOMED Code Problem Chronic lymphocytic leukemia C91.10 Active 69589272 Problem Insomnia, unspecified type G47.00 Active 299605435 Problem Lymphocytosis D72.820 Active 88105525 Problem Anxiety F41.9 Active 25896726 Problem Eye exam abnormal R93.8 Active 028505039 Problem Morbid obesity E66.01 Active 550699442 Problem Diabetic polyneuropathy associated with type 2 diabetes mellitus E11.42 Active 31537443 Problem Essential hypertension I10 Active 71643784 Problem Falling R29.6 Active 260077427 Problem 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 Active 456372432 Problem Cough R05 Active 33404102 Problem Dysuria R30.0 Active 11905106 Problem Eustachian tube dysfunction, unspecified laterality H69.80 Active 56266030 Problem Bilateral primary osteoarthritis of knee M17.0 Active 702647140 Problem Polyneuropathy associated with underlying disease G63 Active 373137813 Problem Anemia of chronic illness D63.8 Active 394616031 Problem Retinal edema H35.81 Active 3976922 Problem DM neuro manif type II E11.49 Active 36207264 Problem Diabetes E11.9 Active 64817142 Problem Hypokalemia E87.6 Active 83180008 Problem Benign prostatic hyperplasia with lower urinary tract symptoms, unspecified morphology N40.1 Active 820458750 Problem Reactive airway disease J45.909 Active 880059075037 Problem Bipolar I disorder, most recent episode (or current) mixed, moderate F31.62 Active 97994866 Problem Chronic pain G89.29 Active 83102372 Problem Leukocytosis D72.829 Active 229361138 ALLERGIES No Information ENCOUNTERS Encounter Location Date Diagnosis [facility] [id number] [address] Apr, [facility] [id number] [address] Mar, [facility] [id number] [address] 9[address] Mar, [facility] [id number] [place] [address] 82356- 0235 Mar, [facility] [id number] [place] [address] 72075- 0597 Mar, [facility] [id number] [place] [address] 93676- 6181 Feb, Bipolar I disorder, most recent episode (or current) mixed, moderate F31.62 [facility] [id number] [place] [address] 20661- 8209 Feb, Chronic pain G89.29 [facility] [id number] [address] Feb, Decubitus ulcer of right foot, stage 3 L89.893 and BMI 50.0- 59.9, adult Z68.43 [facility] [id number] [address] Feb, Bipolar I disorder, most recent episode (or current) mixed, moderate F31.62 [facility] [id number] [address] 2021 Feb, [facility] [id number] [address] 2779 January, [facility] [id number] [place] [address] 99065- 1288 January, Chronic pain G89.29 [facility] [id number] [address] 2930 January, Bipolar I disorder, most recent episode (or current) mixed, moderate F31.62 [facility] [id number] [address] 65[address] January, Bipolar I disorder, most recent episode (or current) mixed, moderate F31.62 [facility] [id number] [place] [address] 42260- 6410 Dec, Bipolar I disorder, most recent episode (or current) mixed, moderate F31.62 and BMI 50.0-59.9, adult Z68.43 [facility] [id number] [place] [address] 60593- 5554 Dec, Bipolar I disorder, most recent episode (or current) mixed, moderate F31.62 [facility] [id number] [place] [address] 79560- 2225 Dec, Chronic pain G89.29 [facility] [id number] [place] [address] 82033- 4127 Dec, DM neuro manif type II E11.49 ; Right flank pain R10.9 ; prison 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 Z79.891 ; Encounter for medication monitoring Z51.81 and BMI 50.0-59.9, adult Z68.43 [facility] [place] [id number] [place] [address] 55685- 8116 Dec, Bipolar I disorder, most recent episode (or current) mixed, moderate F31.62 [facility] [place] [id number] [place] [address] 17884- 9490 Nov, Bipolar I disorder, most recent episode (or current) mixed, moderate F31.62 [facility] [id number] [place] [address] 89278- 2125 Nov, Chronic pain G89.29 [facility] [id number] [place] [address] 63218- 6992 Nov, Bipolar I disorder, most recent episode (or current) mixed, moderate F31.62 [facility] [id number] [place] [address] 55854- 7639 Nov, Hypokalemia E87.6 [facility] [id number] [place] [address] 14621- 6549 Nov, Bipolar I disorder, most recent episode (or current) mixed, moderate F31.62 [facility] [id number] [place] [address] 05827- 6845 Oct, Chronic pain G89.29 [facility] [address] 229924- 7000 Oct, BMI 50.0-59.9, adult Z68.43 and Bipolar I disorder, most recent episode (or current) mixed, moderate F31.62 [facility] [id number] [place] [address] 89285- 1262 Oct, Bipolar I disorder, most recent episode (or current) mixed, moderate F31.62 [facility] [id number] [place] [address] 22845- 3103 Oct, [facility] [place] [address] 11350- 2493 Oct, Hypokalemia E87.6 [facility] [id number] [place] [address] 11389- 1801 Oct, DM neuro manif type II E11.49 [facility] [id number] [place] [address] 23407- 7676 Oct, Bipolar I disorder, most recent episode (or current) mixed, moderate F31.62 [facility] [id number] [place] [address] 00323- 8790 Oct, Bipolar I disorder, most recent episode (or current) mixed, moderate F31.62 [facility] [id number] [place] [address] 33245- 5493 14 Oct, 2017 Hyperkalemia E87.5 ; Falling R29.6 ; BMI 50.0-59.9, adult Z68.43 and Acute left ankle pain M25.572 [facility] [id number] [place] [address] 88733- 7742 08 Oct, 2017 DM neuro manif type II E11.49 [facility] [id number] [place] [address] 53644- 2761 Oct, [facility] [id number] [place] [address] 67257- 2158 Sep, Chronic pain G89.29 [facility] [id number] [place] [address] 40445- 5441 Sep, [facility] [address] 75184- 4823 Sep, Bilateral primary osteoarthritis of knee M17.0 [place] [id number] [place] [address] 79984- 0961 Sep, Generalized edema R60.1 [facility] [id number] [place] [address] 52931- 9910 Sep, Bipolar I disorder, most recent episode (or current) mixed, moderate F31.62 [facility] [id number] [place] [address] 33990- 1740 15 Sep, 2017 Hypoxia R09.02 ; Other hypervolemia E87.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 ; Anemia of chronic illness D63.8 and BMI 50.0- 59.9, adult Z68.43 [facility] [place] [id number] [place] [address] 44892- 2601 Sep, [facility] [id number] [place] [address] 73926- 6954 Sep, Bipolar I disorder, most recent episode (or current) mixed, moderate F31.62 [facility] [id number] [place] [address] 37497- 7846 Aug, Chronic pain G89.29 [facility] [address] [address]- 6485 Aug, Generalized edema R60.1 [facility] [address] [address]- 0191 Aug, [facility] [id number] [place] [address] 27874- 3784 Aug, [facility] [id number] [place] [address] 13390- 4373 14 Aug, 2017 Bipolar I disorder, most recent episode (or current) mixed, moderate F31.62 [facility] [place] [id number] [place] [address] 31207- 0463 Aug, Bipolar I disorder, most recent episode (or current) mixed, moderate F31.62 [facility] [id number] [place] [address] 32857- 1319 Aug, Chronic pain G89.29 [facility] [id number] [place] [address] 34380- 7091 Jul, Bipolar I disorder, most recent episode (or current) mixed, moderate F31.62 [facility] [address] [address]- 0243 Jul, Bipolar I disorder, most recent episode (or current) mixed, moderate F31.62 and BMI 60.0-69.9, adult Z68.44 [facility] [address] [address]- 3852 16 Jul, 2017 Bipolar I disorder, most recent episode (or current) mixed, moderate F31.62 [facility] [id number] [place] [address] 19912- 0615 06 Jul, 2017 Chronic pain G89.29 [facility] [address] [address]- 7802 02 Jul, 2017 Bipolar I disorder, most recent episode (or current) mixed, moderate F31.62 [facility] [id number] [address]- 9647 18 Jun, 2017 Polyneuropathy associated with underlying disease G63 and Diabetes E11.9 [facility] [address] [address]- 7305 16 Jun, 2017 Bipolar I disorder, most recent episode (or current) mixed, moderate F31.62 [facility] [id number] [place] [address] 606544- 9974 09 Jun, 2017 Chronic pain G89.29 [facility] [id number] [place] [address] 42352- 4682 May, Bipolar I disorder, most recent episode (or current) mixed, moderate F31.62 [facility] [id number] [place] [address] 35045- 1388 21 May, 2017 Bipolar I disorder, most recent episode (or current) mixed, moderate F31.62 [facility] [address] [address]- 2605 20 May, 2017 Diabetic polyneuropathy associated with type 2 diabetes mellitus E11.42 [facility] [id number] [place] [address] 84296- 2958 18 May, 2017 Bipolar I disorder, most recent episode (or current) mixed, moderate F31.62 [facility] [address] [address]- 3666 13 May, 2017 Bipolar I disorder, most recent episode (or current) mixed, moderate F31.62 [facility] [address] [address]- 9062 May, Chronic pain G89.29 [facility] [id number] [place] [address] 28347- 1062 Apr, Bipolar I disorder, most recent episode (or current) mixed, moderate F31.62 [facility] [id number] [place] [address] 39898- 8807 Apr, [facility] [id number] [place] [address] 02519- 5848 Apr, Chronic pain G89.29 and DM neuro manif type II E11.49 [facility] [id number] [place] [address] 47359- 9478 Apr, [facility] [id number] [place] [address] 67747- 3363 Apr, Bipolar I disorder, most recent episode (or current) mixed, moderate F31.62 [facility] [id number] [place] [address] 70451- 8626 Apr, Chronic pain G89.29 [facility] [id number] [place] [address] 49828- 0926 Apr, Iliotibial band syndrome, left M76.32 [facility] [id number] [place] [address] 43477- 2465 Apr, Bipolar I disorder, most recent episode (or current) mixed, moderate F31.62 [facility] [id number] [place] [address] 37478- 8265 Mar, Bipolar I disorder, most recent episode (or current) mixed, moderate F31.62 [facility] [id number] [place] [address] 03779- 7192 Mar, Bipolar I disorder, most recent episode (or current) mixed, moderate F31.62 [facility] [id number] [place] [address] 38684- 6146 Mar, [facility] [id number] [place] [address] 63411- 2821 Mar, Bipolar I disorder, most recent episode (or current) mixed, moderate F31.62 [facility] [id number] [place] [address] 13227- 3265 Mar, Chronic pain G89.29 [facility] [id number] [place] [address] 26296- 1470 Mar, Bipolar I disorder, most recent episode (or current) mixed, moderate F31.62 [facility] [id number] [place] [address] 96821- 2009 Mar, Bipolar I disorder, most recent episode (or current) mixed, moderate F31.62 [facility] [id number] [place] [address] 45557- 1684 Mar, Acute pain of left knee M25.562 ; Left hip pain M25.552 ; Generalized edema R60.1 and Tongue swelling R22.0 [facility] [id number] [place] [address] 51467- 0584 Mar, [facility] [id number] [place] [address] 53267- 1250 Feb, Chronic pain G89.29 [facility] [id number] [place] [address] 21902- 0472 Feb, Diabetes E11.9 [facility] [id number] [place] [address] 40646- 0076 January, Chronic pain G89.29 [facility] [id number] [place] [address] 90965- 5850 January, [facility] [id number] [place] [address] 76677- 2691 January, Bipolar I disorder, most recent episode (or current) mixed, moderate F31.62 [facility] [id number] [place] [address] 94403- 9843 Dec, Bipolar I disorder, most recent episode (or current) mixed, moderate F31.62 [facility] [id number] [place] [address] 88018- 2302 Dec, Chronic pain G89.29 [facility] [id number] [place] [address] 01927- 1048 Dec, Bipolar I disorder, most recent episode (or current) mixed, moderate F31.62 [facility] [address] [address]- 8138 Dec, Diabetes E11.9 ; Essential hypertension I10 ; Chronic pain G89.29 and Morbid obesity E66.01 [facility] [id number] [place] [address] 68646- 1203 Dec, [facility] [id number] [place] [address] 53932- 3759 Dec, Bipolar I disorder, most recent episode (or current) mixed, moderate F31.62 [facility] [id number] [place] [address] 480408- 5624 Dec, Bipolar I disorder, most recent episode (or current) mixed, moderate F31.62 [facility] [id number] [place] [address] 09460- 9473 Nov, Chronic pain G89.29 [facility] [id number] [place] [address] 59575- 9832 Nov, Bipolar I disorder, most recent episode (or current) mixed, moderate F31.62 [facility] [id number] [place] [address] 23323- 3313 Nov, [facility] [id number] [place] [address] 04320- 3340 Nov, Bipolar I disorder, most recent episode (or current) mixed, moderate F31.62 [facility] [id number] [place] [address] 98770- 4692 Nov, Bipolar I disorder, most recent episode (or current) mixed, moderate F31.62 [facility] [id number] [place] [address] 25737- 9114 Nov, [facility] [id number] [place] [address] 21808- 0845 Nov, [facility] [id number] [address]- 8744 Nov, [facility] [id number] [place] [address] 70969- 6743 Oct, Chronic pain G89.29 [facility] [id number] [place] [address] 11590- 5956 Oct, Bipolar I disorder, most recent episode (or current) mixed, moderate F31.62 [facility] [id number] [place] [address] 14198- 8843 Oct, [facility] [id number] [place] [address] 11218- 0181 Oct, Chronic pain G89.29 ; Diabetes E11.9 ; Anxiety F41.9 and 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 [facility] [id number] [place] [address] 78047- 0222 Oct, [facility] [id number] [place] [address] 14297- 4896 Oct, Diabetes E11.9 [facility] [id number] [place] [address] 97600- 3201 Oct, Bipolar I disorder, most recent episode (or current) mixed, moderate F31.62 [facility] [id number] [place] [address] 31086- 5364 Sep, Chronic pain G89.29 [facility] [id number] [place] [address] 75765- 0415 Sep, Chronic pain G89.29 [facility] [id number] [place] [address] 42980- 0369 Aug, Chronic pain G89.29 [facility] [id number] [place] [address] 63933- 7838 Jul, [facility] [id number] [place] [address] 67720- 3733 Jul, Diabetes E11.9 [facility] [id number] [place] [address] 02679- 2055 Jul, Chronic pain G89.29 [facility] [id number] [place] [address]- 6421 Jul, Bipolar I disorder, most recent episode (or current) mixed, moderate F31.62 [facility] [address] 41887- 8419 Jun, Bipolar I disorder, most recent episode (or current) mixed, moderate F31.62 [facility] [address] 38902- 6883 Jun, [place] [address] 72073- 2956 Jun, Bipolar I disorder, most recent episode (or current) mixed, moderate F31.62 [place] [address] 95151- 6568 May, Insomnia, unspecified type G47.00 [place] [address] 70642- 4322 May, Bipolar I disorder, most recent episode (or current) mixed, moderate F31.62 [facility] [id number] [place] [address] 55998- 9010 14 May, 2016 [place] [address] 65620- 8096 08 May, 2016 Bipolar I disorder, most recent episode (or current) mixed, moderate F31.62 [facility] [id number] [place] [address] 98115- 3865 06 May, 2016 Diabetes E11.9 and Essential hypertension I10 [facility] [id number] [place] [address] 34958- 7840 Apr, Chronic pain G89.29 [facility] [address] [place] 671812- 2546 Apr, Bipolar I disorder, most recent episode (or current) mixed, moderate F31.62 [place] [id number] [place] [address] 13841- 5747 Apr, [facility] [id number] [place] [address] 63020- 2980 Apr, [facility] [id number] [place] [address] 67440- 1059 Mar, Chronic pain G89.29 ; Headache, unspecified headache type R51 ; Neuropathy G62.9 ; Pain of right hip joint M25.551 and Essential hypertension I10 [facility] [id number] [place] [address] 41851- 7072 Mar, Chronic pain G89.29 [facility] [id number] [place] [address] 56319- 4597 Mar, Bipolar I disorder, most recent episode (or current) mixed, moderate F31.62 [facility] [id number] [place] [address] 68100- 8834 Feb, Bipolar I disorder, most recent episode (or current) mixed, moderate F31.62 and Insomnia, unspecified type G47.00 [place] [address] [place] [address] 10790- 4356 Feb, Chronic pain G89.29 [facility] [id number] [place] [address] 87882- 8176 Feb, Bipolar I disorder, most recent episode (or current) mixed, moderate F31.62 [facility] [id number] [place] [address] 33060- 1688 January, Bipolar I disorder, most recent episode (or current) mixed, moderate F31.62 [place] [address] [place] [address] 15603- 5000 January, Chronic pain G89.29 [facility] [id number] [place] [address] 20389- 8886 January, Chronic pain G89.29 and Essential hypertension I10 [facility] [address] [place] [id number] [place] [address] [phone]- [phone] January, Bipolar I disorder, most recent episode (or current) mixed, moderate F31.62 [facility] [address] [place] [id number] [place] [address] 59931- [phone] Dec, [facility] [address] [place] [id number] [place] [address] 51449- 8751 Dec, [facility] [address] [place] [id number] [place] [address] [phone] Dec, [facility] [address] [place] [id number] [place] [address] 52027- 9618 Dec, [facility] [address] [place] [id number] [place] [address] 51773- 1901 Nov, Reactive airway disease J45.909 [facility] [address] [place] [id number] [place] [address] 12814- [phone] Nov, [facility] [address] [place] [id number] [place] [address] [phone]- [phone] Nov, [facility] [address] [place] [id number] [place] [address] 30864- [phone] Nov, [facility] [address] [place] [id number] [place] [address] 47782- 0429 Nov, [facility] [facility] [id number] [place] [address] 54103- 1100 Nov, Onychomycosis B35.1 ; Hammertoe M20.40 ; [place] or callus L84 and DM neuro manif type II E11.49 [facility] [id number] [place] [address] 87504- 3223 15 Nov, 2015 Chronic pain G89.29 ; Leukocytosis D72.829 and Diabetes E11.9 [facility] [id number] [place] [address] 65519- 4456 Nov, [facility] [id number] [place] [address] 58361- 3949 Oct, Bronchitis J40 [facility] [id number] [place] [address] 35597- 1177 Oct, [facility] [address] 12974- 4641 Oct, [facility] [id number] [place] [address] 08140- 1619 Oct, Mastoiditis, unspecified laterality H70.90 and Type 2 diabetes mellitus with complication E11.8 [facility] [facility] [id number] [place] [address] 42252- 9915 Sep, [place] [address] 55122- 7172 Sep, Dysuria R30.0 ; Cough R05 ; Benign prostatic hyperplasia with lower urinary tract symptoms, unspecified morphology N40.1 ; Hypokalemia E87.6 and Eustachian tube dysfunction, unspecified laterality H69.80 [facility] [id number] [place] [address] 82524- 4756 Sep, Moderate mixed bipolar I disorder F31.62 [facility] [facility] [id number] [place] [address] 95708- 0948 Sep, Hypokalemia E87.6 [facility] [id number] [place] [address] 13322- 3914 Sep, [facility] [address] 64369- 2347 Sep, Upper respiratory tract infection, unspecified type J06.9 [facility] [id number] [place] [address] 07128- 5495 Aug, [facility] [address] 17899- 4352 Aug, Dysuria R30.0 [facility] [id number] [address] 4476 Aug, [facility] [id number] 9053 Jul, [facility] [id number]- 2014 Jul, [facility] [id number] [address]- 7211 Jul, [facility] [id number] [place] [address] 718895- 0967 Jul, [facility] [id number] [place] [address] 38596- 0378 Jun, [facility] [id number] [place] [address] 474932- 2969 Jun, [facility] [id number] [address]- 1087 Jun, [facility] [id number] [address]- 0604 29 May, 2015 [facility] [id number] [address]- 2195 May, Bipolar I disorder, most recent episode (or current) mixed, moderate 296.62 [facility] [id number] [address]- 4131 16 May, 2015 [facility] [id number] [address]- 9660 May, Bipolar I disorder, most recent episode (or current) mixed, moderate 296.62 and Major depressive disorder, recurrent episode, severe, specified as with psychotic behavior 296.34 [facility] [id number] [address]- 7018 May, Bipolar I disorder, most recent episode (or current) mixed, moderate 296.62 [facility] [id number] [address]- 1274 May, [facility] [id number] [address]- 3628 Apr, [facility] [address] [address]- 2852 Apr, [facility] [id number] [place] [address] 53031- 9010 Apr, Unspecified disorder of kidney and ureter 593.9 and Diabetes mellitus type 2, uncontrolled 250.02 [facility] [id number] [place] [address] 56097- 7947 Apr, [facility] [id number] [address]- 4614 Apr, [facility] [id number] [place] [address] 18053- 4424 Apr, [facility] [id number] [address]- 1116 Apr, [facility] [id number] [address]- 2035 Apr, Diabetes mellitus type II, uncontrolled 250.02 [facility] [address] [address]- 0037 Apr, [facility] [address] [address]- 1417 Mar, [facility] [address] [address]- 4835 Mar, [facility] [address] [address]- 3777 Mar, [facility] [address] [address]- 8199 Mar, Major depressive disorder, recurrent episode, severe, specified as with psychotic behavior 296.34 and Bipolar I disorder, most recent episode (or current) mixed, moderate 296.62 [facility] [id number] [place] [address] 35091- 5082 Mar, Diabetes 250.00 ; Anuria 788.5 ; Nausea and vomiting 787.01 and Diarrhea 787.91 [facility] [id number] [place] [address] 62068- 8412 Mar, Diabetes 250.00 [facility] [id number] [place] [address] 35941- 5157 Mar, [facility] [id number] [place] [address] 82850- 7119 Mar, Diabetes 250.00 [facility] [id number] [place] [address] 14344- 1493 Mar, [facility] [id number] [place] [address] 51034- 7212 Mar, [facility] [id number] [place] [address] 17292- 3484 Mar, [facility] [id number] [place] [address] 72120- 6015 Mar, [facility] [id number] [place] [address] 67211- 7535 Mar, Bipolar I disorder, most recent episode (or current) mixed, moderate 296.62 and Major depressive disorder, recurrent episode, severe, specified as with psychotic behavior 296.34 [facility] [id number] [place] [address] 83707- 1995 Mar, Magnesium deficiency 275.2 ; Hypokalemia 276.8 ; Nausea & vomiting 787.01 and Diabetes mellitus type 2, uncontrolled 250.02 [facility] [id number] [place] [address] 49649- 9271 Feb, [facility] [id number] [place] [address] 55733- 8206 Feb, Bipolar I disorder, most recent episode (or current) mixed, moderate 296.62 [facility] [facility] [id number] [place] [address] 56446- 7364 Feb, Nausea and vomiting 787.01 ; Left elbow pain 719.42 ; Anuria 788.5 and Diabetes 250.00 [facility] [facility] [id number] [place] [address] 90895- 5607 Feb, [facility] [address] 64610- 2893 Feb, Hypopotassemia 276.8 and Hypokalemia 276.8 [place] [address] 26043- 6450 Feb, Hypopotassemia 276.8 and Hypokalemia 276.8 [facility] [facility] [id number] [place] [address] 80000- 6383 Feb, Seborrheic keratoses 702.19 [facility] [facility] [id number] [place] [address] 89892- 6577 Feb, Hypopotassemia 276.8 and Low magnesium levels 275.2 [facility] [facility] [id number] [place] [address] 31557- 1163 January, [facility] [id number] [place] [address] 02551- 4683 January, [facility] [id number] [place] [address] 43730- 9170 January, [facility] [id number] [place] [address] 02032- 8719 January, Scalp lesion 709.9 [facility] [id number] [place] [address] 03025- 5896 January, [facility] [id number] [place] [address] 49991- 0376 Dec, Tear of medial cartilage or meniscus of knee, current 836.0 and 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 [facility] [address] [facility] [place] [id number] [place] [address] 2546 Dec, [facility] [address] [facility] [place] [id number] [place] [address] 2546 29 Dec, 2014 [facility] [address] [facility] [place] [id number] [place] [address] 2546 28 Dec, 2014 Squamous cell carcinoma, 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 [facility] [address] [id number] [place] [address] 2546 14 Dec, 2014 [facility] [address] [facility] [place] [id number] [place] [address]- 6176 Dec, [facility] [address] [facility] [place] [id number] [place] [address]- 3836 Nov, [facility] [id number] [place] [address]- 2776 Nov, [facility] [address] [facility] [place] [id number] [place] [address]- 7007 Nov, [facility] [address] [facility] [place] [id number] [place] [address] 2546 Nov, [facility] [address] [facility] [place] [id number] [place] [address] 2549 Nov, [facility] [id number] [place] [address] 2546 Nov, [facility] [address] [facility] [place] [id number] [place] [address] 2546 Nov, [facility] [address] [facility] [place] [id number] [place] [address] 2546 Nov, [facility] [address] [facility] [place] [id number] [place] [address] 2546 Nov, [facility] [address] [facility] [place] [id number] [place] [address] 2546 Nov, [facility] [place] [facility] [address] [id number] [place] [address]- 0962 Nov, [facility] [place] [facility] [address] [id number] [place] [address]- 6715 Nov, [facility] [place] [facility] [address] [id number] [place] [address]- 8879 Oct, 2014 [facility] [place] [facility] [address] [id number] [place] [address]- 6578 Oct, 2014 [facility] [place] [facility] [address] [id number] [place] [address]- 7684 Oct, 2014 [facility] [place] [facility] [address] [id number] [place] [address]- 5852 Oct, 2014 [facility] [place] [facility] [address] [facility] [place] [id number] [place] [address]- 4842 Oct, 2014 [facility] [place] [facility] [address] [id number] [place] [address]- 0563 Oct, 2014 [facility] [place] [facility] [address] [facility] [place] [id number] [place] [address]- 4679 Oct, [facility] [place] [facility] [address] [facility] [place] [id number] [place] [address]- 6848 Oct, [facility] [place] [facility] [address] [facility] [place] [id number] [place] [address]- 6250 Oct, [facility] [place] [facility] [address] [id number] [address]- 3290 Sep, [facility] [place] [facility] [address] [id number] [place] [address]- 9444 Sep, [facility] [place] [facility] [address] [facility] [place] [id number] [place] [address]- 2054 Sep, [facility] [place] [facility] [address] [facility] [place] [id number] [place] [address]- 8407 Sep, [facility] [place] [facility] [address] [id number] [place] [address]- 4567 Sep, [facility] [address] [id number] [place] [address]- 1993 Sep, [facility] [address] [id number] [place] [address]- 7284 Sep, [facility] [address] [id number] [place] [address]- 3749 Sep, [facility] [address] [id number] [place] [address]- 9165 Sep, [facility] [address] [id number] [place] [address]- 8106 Sep, [facility] [address] [id number] [place] [address]- 1730 Sep, [facility] [address] [id number] [place] [address]- 1530 Sep, [facility] [address] [id number] [place] [address]- 6287 Sep, [facility] [address] [id number] [place] [address]- 0534 Sep, [facility] [address] [id number] [place] [address]- 8147 Sep, [facility] [address] [id number] [place] [address]- 9404 Sep, [facility] [address] [id number] [place] [address]- 5520 Aug, [facility] [place] [facility] [address] [id number] [place] [address]- 3872 Aug, [facility] [place] [facility] [address] [id number] [place] [address]- 3214 Aug, [facility] [place] [facility] [address] [id number] [place] [address]- 8906 Aug, [facility] [address] [id number] [place] 9281 Aug, [facility] [address] [id number] [place] 0451 Aug, [facility] [address] [id number] [place] [address]- 8652 Aug, [facility] [address] [id number] [place] [address]- 3223 Aug, [facility] [address] [id number] [place] 0466 Aug, [facility] [address] [id number] [place] [address]- 5642 Aug, [facility] [address] [id number] [place] [address]- 1060 Aug, [facility] [address] [place] [id number] Aug, [facility] [address] [id number] [place] [address]- 7978 Aug, [facility] [address] [id number] [place] [address]- 7069 Aug, [facility] [address] [id number] [place] [address]- 8188 Aug, [facility] [address] [id number] [place] [address]- 7778 Aug, [facility] [address] [id number] [place] [address]- 8767 Aug, [facility] [address] [id number] [place]- 2647 Aug, [facility] [address] [id number] [place] [address]- 8716 Aug, [facility] [address] [id number] [place] [address]- 0158 Aug, [facility] [place] [facility] [address] [id number] [place] [address]- 3260 Aug, [facility] [place] [facility] [address] [id number] [place] [address]- 0816 Aug, [facility] [place] [facility] [address] [id number] [place] [address]- 9789 Aug, [facility] [place] [facility] [address] [id number] [place] [address]- 2163 Aug, [facility] [place] [facility] [address] [id number] [place] [address]- 5816 Aug, [facility] [place] [facility] [address] [id number] [place] [address]- 0211 Aug, [facility] [place] [facility] [address] [id number] [place] [address]- 3530 Aug, [facility] [place] [facility] [address] [id number] [place] [address]- 0119 Aug, [facility] [place] [facility] [address] [id number] [place] [address]- 0270 Aug, [facility] [place] [facility] [address] [id number] [place] [address]- 3795 Aug, [facility] [place] [facility] [address] [id number] [address]- 4397 Jul, [facility] [place] [facility] [address] [id number] [place] [address]- 5962 Jul, [facility] [place] [facility] [address] [id number] [place] [address]- 9419 Jul, [facility] [place] [facility] [address] [id number] [place] [address]- 5128 Jul, [facility] [place] [facility] [address] [facility] [id number] [place] [address]- 8974 Jul, [facility] [place] [facility] [address] [id number] [place] [address]- 6274 Jul, [facility] [place] [facility] [address] [id number] [place] 0540 Jul, [facility] [place] [facility] [address] [id number] [place] 5304 Jul, [facility] [place] [facility] [address] [id number] [place] 2373 Jul, [facility] [place] [facility] [address] [id number] [place] [address]- 2391 Jul, [facility] [place] [facility] [address] [id number] [place] [address]- 0908 Jun, [facility] [place] [facility] [address] [id number] [place] [address]- 9604 Jun, [facility] [place] [facility] [address] [id number] [place] [address]- 1334 Jun, [facility] [place] [facility] [address] [id number] [place] [address]- 2022 Jun, [facility] [place] [facility] [address] [id number] [place] [address]- 1584 Jun, [facility] [place] [facility] [address] [facility] [place] [facility] [id number] [place] [address]- 5008 Jun, [facility] [place] [facility] [address] [id number] [place] [address]- 0806 Jun, [facility] [place] [facility] [address] [id number] [address]- 0938 Jun, [facility] [place] [facility] [address] [id number] [place] 6329 Jun, [facility] [place] [facility] [address] [facility] [place] [id number] [place] 0268 Jun, [facility] [place] [facility] [address] [id number] [place] 5879 May, [facility] [place] [facility] [address] [id number] [place] [address]- 2540 29 Sep, 2013 [facility] [place] [facility] [address] [id number] [place] [address] 2545 26 Sep, 2013 [facility] [place] [facility] [address] [id number] [place] [address]- 2544 26 Sep, 2013 [facility] [place] [facility] [address] [id number] [place] [address]- 2544 17 Sep, 2013 [facility] [place] [facility] [address] [id number] [place] [address]- 6075 17 Sep, 2013 [facility] [place] [facility] [address] [id number] [place] [address]- 0609 15 Sep, 2013 [facility] [place] [facility] [address] [id number] [place] [address]- 8919 15 Sep, 2013 [facility] [place] [facility] [address] [id number] [place] [address]- 2522 15 Sep, 2013 [facility] [place] [facility] [address] [id number] [place] [address]- 7199 15 May, 2013 [facility] [place] [facility] [address] [id number] [place] [address]- 1205 10 May, 2013 [facility] [place] [facility] [address] [id number] [place] [address]- 254 10 Sep, 2013 [facility] [place] [facility] [address] [id number] [place] [address]- 2540 09 Sep, 2013 [facility] [place] [facility] [address] [id number] [place] [address]- 2541 09 Sep, 2013 [facility] [place] [facility] [address] [id number] [place] [address] 04 Sep, 2013 [facility] [place] [facility] [address] [id number] [place] [address] 04 Sep, 2013 [facility] [place] [facility] [address] [id number] [place] [address] Apr, [facility] [place] [facility] [address] [id number] [place] [address] Apr, [facility] [place] [facility] [address] [id number] [place] [address] Apr, [facility] [place] [facility] [address] [id number] [place] [address] Apr, [facility] [place] [facility] [address] [id number] [place] [address] Apr, [facility] [place] [facility] [address] [id number] [place] [address] Apr, [facility] [place] [facility] [address] [id number] [place] [address] Apr, [facility] [place] [facility] [address] [id number] [place] [address] Apr, [facility] [place] [facility] [address] [id number] [place] [address] Apr, [facility] [place] [facility] [address] [id number] [place] [address] Apr, [facility] [place] [facility] [address] [id number] [place] [address] Apr, [facility] [place] [facility] [address] [id number] [place] [address] Apr, [facility] [place] [facility] [address] [id number] [place] [address] Apr, [facility] [place] [facility] [address] [id number] [place] [address] Apr, [facility] [place] [facility] [address] [id number] [place] [address] Apr, [facility] [place] [facility] [address] [id number] [place] [address] Mar, [facility] [place] [facility] [address] [id number] [place] [address] Mar, 2013 [facility] [place] [facility] [address] [id number] [place] [address]- [address] Mar, 2013 [facility] [place] [facility] [address] [id number] [place] [address]- [address] Mar, 2013 [facility] [place] [facility] [address] [id number] [place] [address]- [address] Mar, 2013 [facility] [place] [facility] [address] [id number] [place] [address]- [address] Mar, 2013 [facility] [place] [facility] [address] [id number] [place] [address]- [address] Mar, 2013 [facility] [place] [facility] [address] [id number] [place] [address]- [address] Mar, 2013 [facility] [place] [facility] [address] [id number] [place] [address]- [address] Mar, 2013 [facility] [place] [facility] [address] [id number] [place] [address]- [address] Mar, 2013 [facility] [place] [facility] [address] [id number] [place] [address]- [address] Mar, 2013 [facility] [place] [facility] [address] [id number] [place] [address] Mar, 2013 [facility] [place] [facility] [address] [id number] [place] [address]- [address] Mar, 2013 [facility] [place] [facility] [address] [id number] [place] [address]- [address] Mar, 2013 [facility] [place] [facility] [address] [id number] [place] [address]- [address] Mar, 2013 [facility] [place] [facility] [address] [id number] [place] [address]- [address] Mar, 2013 [facility] [place] [facility] [address] [id number] [place] [address] Mar, [facility] [place] [facility] [address] [id number] [place] [address]- [address] Mar, [facility] [place] [facility] [address] [id number] [place] [address]- [address] Feb, [facility] [place] [facility] [address] [id number] [place] [address] Feb, [facility] [place] [facility] [address] [id number] [place] [address] Feb, [facility] [place] [facility] [address] [id number] [place] [address] Feb, [facility] [place] [facility] [address] [id number] [place] [address]- [address] Feb, [facility] [place] [facility] [address] [id number] [place] [address]- [address] Feb, [facility] [place] [facility] [address] [id number] [place] [address]- [address] Feb, [facility] [place] [facility] [address] [id number] [place] [address]- [address] Feb, [facility] [place] [facility] [address] [id number] [place] [address]- [address] Feb, [facility] [place] [facility] [address] [id number] [place] [address] Feb, [facility] [place] [facility] [address] [id number] [address] Feb, [facility] [place] [facility] [address] [id number] [place] [address] 3[address] Feb, [facility] [place] [facility] [address] [id number] [place] [address]- 6881 Feb, [facility] [place] [facility] [address] [id number] [place] [address]- 0933 Feb, [facility] [place] [facility] [address] [id number] [address] January, [facility] [address] [id number] [place] [address] 22[address] January, [facility] [place] [facility] [address] [id number] [place] [address]- 4657 January, [facility] [address] [id number] [place] [address] 4377 January, [facility] [place] [facility] [address] [id number] [place] [address]- 5482 January, [facility] [place] [facility] [address] [id number] [place] [address]- 1180 January, [facility] [address] [id number] [place] [address]- 4725 January, [facility] [address] [id number] [place] [address]- 8457 January, [facility] [address] [id number] [place] [address]- 0474 January, [facility] [address] [id number] [place] [address]- 5783 January, [facility] [address] [id number] [place] [address]- 478[address] January, [facility] [address] [id number] [place] [address]- 1767 January, [facility] [place] [facility] [address] [id number] [place] [address]- 7484 January, [facility] [place] [facility] [address] [id number] [place] [address]- 7517 January, [facility] [place] [facility] [address] [id number] [place] [address]- 8300 Dec, [facility] [place] [facility] [address] [id number] [place] [address]- 4043 Dec, [facility] [place] [facility] [address] [id number] [place] [address]- 1479 Dec, [facility] [place] [facility] [address] [id number] [place] [address]- 0116 Dec, [facility] [place] [facility] [address] [id number] [place] [address]- 2946 Dec, [facility] [place] [facility] [address] [id number] [place] [address]- 5736 Dec, [facility] [place] [facility] [address] [id number] [place] [address]- 5475 Dec, [facility] [place] [facility] [address] [id number] [place] [address]- 5441 Dec, [facility] [place] [facility] [address] [id number] [place] [address]- 9206 Dec, [facility] [place] [facility] [address] [id number] [place] [address]- 1187 Dec, [facility] [place] [facility] [address] [id number] [place] [address]- 7878 Nov, [facility] [place] [facility] [address] [id number] [place] [address]- 8950 Nov, [facility] [place] [facility] [address] [id number] [place] [address]- 8090 Nov, [facility] [place] [facility] [address] [id number] [place] [address]- 3085 Nov, [facility] [place] [facility] [address] [id number] [place] [address]- 3408 Nov, [facility] [place] [facility] [address] [id number] [place] [address]- 2526 Nov, [facility] [place] [facility] [address] [id number] [place] [address]- 3021 05 Nov, 2013 [facility] [place] [facility] [address] [id number] [place] [address]- 7608 Nov, [facility] [place] [facility] [address] [id number] [place] [address]- 3520 Nov, [facility] [place] [facility] [address] [id number] [place] [address]- 1463 Nov, [facility] [place] [facility] [address] [facility] [id number] [place] [address]- 0462 Oct, [facility] [place] [facility] [address] [id number] [place] [address]- 0347 Oct, [facility] [place] [facility] [address] [id number] [place] [address]- 4960 Oct, [facility] [place] [facility] [address] [facility] [place] [id number] [place] [address]- 9164 Oct, [facility] [place] [facility] [address] [facility] [place] [place] [id number] [place] [address]- 3572 Oct, [facility] [place] [facility] [address] [facility] [place] [id number] [place] [address]- 4028 Oct, [facility] [place] [facility] [address] [facility] [place] [place] [id number] [place] [address]- 4046 Oct, [facility] [place] [facility] [address] [facility] [place] [id number] [place] [address]- 9970 Oct, [facility] [place] [facility] [address] [facility] [place] [place] [id number] [place] [address]- 2571 Oct, [facility] [place] [facility] [address] [facility] [place] [id number] [place] [address]- 0104 Oct, [facility] [place] [facility] [address] [facility] [id number] [place] [address]- 2510 Oct, [facility] [place] [facility] [address] [facility] [id number] [place] [address]- 9084 Oct, [facility] [place] [facility] [address] [facility] [id number] [place] [address]- 2164 Oct, [facility] [place] [facility] [address] [id number] [place] [address]- 1584 Oct, [facility] [place] [facility] [address] [id number] [place] [address]- 9044 Sep, [facility] [place] [facility] [address] [id number] [place] [address]- 6532 Sep, [facility] [place] [facility] [address] [id number] [place] [address]- 4816 Sep, [facility] [place] [facility] [address] [id number] [place] [address]- 4004 Sep, [facility] [place] [facility] [address] [id number] [place] [address]- 8541 Sep, [facility] [place] [facility] [address] [id number] [place] [address]- 4548 Sep, [facility] [place] [facility] [address] [id number] [place] [address]- 1407 Sep, [facility] [place] [facility] [address] [id number] [place] [address]- 0403 Sep, [facility] [place] [facility] [address] [id number] [place] [address]- 7420 Sep, [facility] [place] [facility] [address] [id number] [place] [address]- 1813 Sep, [facility] [place] [facility] [address] [id number] [place] [address]- 9264 Aug, [facility] [place] [facility] [address] [id number] [place] [address]- 2843 Aug, [facility] [place] [facility] [address] [id number] [place] [address]- 2517 Jul, [facility] [place] [facility] [address] [id number] [place] [address]- 7922 Jul, [facility] [place] [facility] [address] [id number] [address]- 2296 Jul, [facility] [place] [facility] [address] [id number] [place] [address]- 3014 Jul, [facility] [place] [facility] [address] [id number] [place] [address]- 0611 Jul, [facility] [place] [facility] [address] [id number] [place] [address]- 4520 Jul, [facility] [place] [facility] [address] [id number] [place] [address]- 6508 Jul, [facility] [place] [facility] [address] [id number] [place] [address]- 0652 Jul, [facility] [place] [facility] [address] [id number] [place] [address]- 4451 Jul, [facility] [place] [facility] [address] [id number] [place] [address]- 6771 Jul, [facility] [place] [facility] [address] [id number] [place] [address]- 9192 Jul, [facility] [place] [facility] [address] [id number] [place] [address]- 2168 Jul, [facility] [place] [facility] [address] [id number] [place] [address]- 7460 Jul, [facility] [place] [facility] [address] [id number] [place] [address]- 3148 Jul, [facility] [place] [facility] [address] [id number] [place] [address]- 6859 Jul, [facility] [place] [facility] [address] [id number] [place] [address]- 9599 Jul, [facility] [place] [facility] [address] [id number] [place] [address]- 9976 Jul, [facility] [place] [facility] [address] [id number] [place] [address]- 4333 Jul, [facility] [place] [facility] [address] [id number] [place] [address]- 2546 Jul, 2012 [facility] [place] [facility] [address] [id number] [place] [address]- 5722 16 Jun, 2012 [facility] [place] [facility] [address] [id number] [place] [address]- 2546 Jun, 2012 [facility] [place] [facility] [address] [id number] [place] [address]- 2543 Jun, 2012 [facility] [place] [facility] [address] [id number] [place] [address]- 254 Jun, 2012 [facility] [place] [facility] [address] [id number] [place] [address]- 6194 Jun, 2012 [facility] [place] [facility] [address] [id number] [place] [address]- 4301 Jun, 2012 [facility] [place] [facility] [address] [id number] [place] [address]- 7738 Jun, 2012 [facility] [place] [facility] [address] [id number] [place] [address]- 3344 10 Jun, 2012 [facility] [place] [facility] [address] [id number] [place] [address]- 1901 Jun, 2012 [facility] [place] [facility] [address] [id number] [place] [address]- 0572 Jun, [facility] [place] [facility] [address] [id number] [place] [address]- 2543 Jun, 2012 [facility] [place] [facility] [address] [id number] [place] [address]- 1385 26 May, 2012 [facility] [place] [facility] [address] [id number] [place] [address]- 6705 25 May, 2012 [facility] [place] [facility] [address] [id number] [place] [address]- 2546 19 May, 2012 [facility] [place] [facility] [address] [id number] [place] [address]- 1514 17 May, 2013 [facility] [place] [facility] [address] [id number] [place] [address]- 4356 11 May, 2013 [facility] [place] [facility] [address] [id number] [place] [address]- 1418 10 May, 2013 [facility] [place] [facility] [address] [id number] [place] [address]- 8463 May, [facility] [place] [facility] [address] [id number] [place] [address]- 5137 05 May, 2013 [facility] [place] [facility] [address] [id number] [place] [address]- 7815 Apr, [facility] [place] [facility] [address] [id number] [place] [address]- 8576 Apr, [facility] [place] [facility] [address] [id number] [place] [address]- 2905 Apr, [facility] [place] [facility] [address] [id number] [place] [address]- 1189 Apr, [facility] [place] [facility] [address] [id number] [place] [address]- 4231 Apr, [facility] [place] [facility] [address] [id number] [place] [address]- 9021 Mar, [facility] [place] [facility] [address] [id number] [place] [address]- 5026 Mar, [facility] [place] [facility] [address] [id number] [place] [address]- 1770 Mar, [facility] [place] [facility] [address] [id number] [place] [address]- 8154 Mar, [facility] [place] [facility] [address] [id number] [place] [address]- 4542 Mar, [facility] [place] [facility] [address] [id number] [place] [address]- 1527 Mar, [facility] [place] [facility] [address] [id number] [place] [address]- 7208 Mar, [facility] [address] [id number] [place] [address]- 2558 Mar, [facility] [address] [id number] [place] [address]- 4607 Feb, [facility] [address] [id number] [place] [address]- 5139 Feb, [facility] [place] [facility] [address] [id number] [place] [address]- 3253 January, [facility] [address] [id number] [place] [address]- 6818 January, [facility] [address] [id number] [place] [address]- 3583 Dec, [facility] [address] [id number] [place] [address]- 7683 Dec, [facility] [address] [id number] [place] [address]- 8726 Nov, [facility] [address] [id number] [place] [address]- 6539 Nov, [facility] [address] [id number] [place] [address]- 9206 Nov, [facility] [place] [facility] [address] [id number] [place] [address]- 0432 Nov, [facility] [place] [facility] [address] [id number] [place] [address]- 1641 Oct, [facility] [place] [facility] [address] [id number] [place] [address]- 1190 Oct, [facility] [place] [facility] [address] [id number] [place] [address]- 0721 Oct, [facility] [place] [facility] [address] [id number] [place] [address]- 7697 Oct, [facility] [place] [facility] [address] [id number] [place] [address]- 8620 16 Oct, 2012 [facility] [place] [facility] [address] [id number] [place] [address]- 6242 14 Oct, 2012 [facility] [address] [id number] [place] [address]- 0185 08 Oct, 2012 [facility] [place] [facility] [address] [id number] [place] [address]- 4492 07 Oct, 2012 [facility] [address] [id number] [place] [address]- 1098 03 Oct, 2012 [facility] [address] [id number] [place] [address]- 0093 30 Sep, 2012 [facility] [address] [id number] [place] [address]- 1646 Sep, [facility] [address] [id number] [place] [address]- 6005 Sep, [facility] [address] [id number] [place] [address]- 6941 Sep, [facility] [address] [id number] [place] [address]- 5986 Sep, [facility] [address] [id number] [place] [address]- 5458 Sep, [facility] [place] [facility] [address] [id number] [place] [address]- 5206 Sep, [facility] [place] [facility] [address] [id number] [place] [address]- 6628 Sep, [facility] [place] [facility] [address] [id number] [place] [address]- 0711 Aug, [facility] [place] [facility] [address] [id number] [place] [address]- 6153 Aug, [facility] [place] [facility] [address] [id number] [place] [address]- 7615 28 Aug, 2012 [facility] [place] [facility] [address] [id number] [place] [address]- 2310 Aug, [facility] [place] [facility] [address] [id number] [place] [address]- 7216 Aug, [facility] [place] [facility] [address] [id number] [place] [address]- 0636 Aug, [facility] [place] [facility] [address] [id number] [place] [address]- 0094 Aug, [facility] [place] [facility] [address] [id number] [place] [address]- 3384 Aug, [facility] [place] [facility] [address] [id number] [place] [address]- 0637 Jul, [facility] [place] [facility] [address] [id number] [place] [address]- 0032 Jul, [facility] [place] [facility] [address] [id number] [place] [address]- 3373 Jul, [facility] [place] [facility] [address] [id number] [place] [address]- 9913 Jul, [facility] [place] [facility] [address] [facility] [place] [id number] [place] [address]- 9422 Jul, [facility] [place] [facility] [address] [id number] [place] [address]- 0146 Jul, [facility] [place] [facility] [address] [id number] [place] [address]- 4134 Jun, [facility] [place] [facility] [address] [id number] [place] [address]- 9718 Jun, [facility] [place] [facility] [address] [id number] [place] [address]- 0693 Jun, [facility] [place] [facility] [address] [id number] [place] [address]- 3144 Jun, [facility] [place] [facility] [address] [id number] [place] [address]- 7731 Jun, [facility] [place] [facility] [address] [id number] [place] [address]- 2876 Jun, [facility] [place] [facility] [address] [id number] [place] [address]- 5146 Jun, [facility] [place] [facility] [address] [id number] [place] [address]- 2997 Jun, [facility] [place] [facility] [address] [id number] [place] [address]- 9232 10 Jun, 2012 [facility] [place] [facility] [address] [id number] [place] [address]- 3898 26 May, 2012 [facility] [place] [facility] [address] [id number] [place] [address]- 8942 24 May, 2012 [facility] [place] [facility] [address] [id number] [place] [address]- 5802 18 May, 2012 [facility] [place] [facility] [address] [id number] [place] [address]- 9320 30 Apr, 2012 [facility] [place] [facility] [address] [id number] [place] [address]- 0264 29 Apr, 2012 [facility] [place] [facility] [address] [id number] [place] [address]- 7585 Apr, [facility] [place] [facility] [address] [id number] [place] [address]- 1976 14 Apr, 2012 [facility] [place] [facility] [address] [id number] [place] [address]- 2104 Apr, [facility] [place] [facility] [address] [id number] [place] [address]- 2330 Apr, [facility] [place] [facility] [address] [id number] [place] [address]- 1088 Mar, [facility] [place] [facility] [address] [id number] [place] [address]- 0826 Mar, [facility] [place] [facility] [address] [id number] [place] [address]- 6782 Mar, [facility] [place] [facility] [address] [id number] [place] [address]- 4326 Mar, [facility] [place] [facility] [address] [id number] [place] [address]- 4495 Feb, [facility] [place] [facility] [address] [id number] [place] [address]- 1740 Feb, [facility] [place] [facility] [address] [id number] [place] [address]- 0631 Feb, [facility] [place] [facility] [address] [id number] [place] [address]- 8320 Feb, [facility] [place] [facility] [address] [id number] [place] [address]- 0967 Feb, [facility] [place] [facility] [address] [id number] [place] [address]- 1430 January, [facility] [place] [facility] [address] [id number] [place] [address]- 8631 January, [facility] [place] [facility] [address] [id number] [place] [address]- 4464 January, [facility] [place] [facility] [address] [id number] [place] [address]- 4169 January, [facility] [place] [facility] [address] [id number] [place] [address]- 3943 January, [facility] [place] [facility] [address] [id number] [place] [address]- 4778 January, [facility] [place] [facility] [address] [id number] [place] [address]- 4580 Dec, [facility] [place] [facility] [address] [id number] [place] [address]- 0103 Dec, [facility] [place] [facility] [address] [id number] [place] [address]- 5568 17 Dec, 2011 [facility] [address] [id number] [place] [address] 09 Dec, 2011 [facility] [place] [facility] [address] [id number] [place] [address] 2546 06 Dec, 2011 [facility] [address] [id number] [place] [address] 27 Nov, 2011 [facility] [address] [id number] [place] [address] 14 Nov, 2011 [facility] [address] [id number] [place] [address] Nov, [facility] [address] [facility] [place] [id number] [place] [address] 07 Nov, 2011 [facility] [address] [id number] [place] [address] 5071 29 Oct, 2011 [facility] [address] [id number] [place] [address] 28 Oct, 2011 [facility] [address] [id number] [place] [address] 24 Oct, 2011 [facility] [address] [id number] [place] [address] 13 Oct, 2011 [facility] [address] [facility] [place] [id number] [place] [address] 9486 08 Oct, 2011 [facility] [address] [id number] [place] [address] Sep, [facility] [place] [facility] [address] [id number] [place] [address] 4[address] 30 Sep, 2011 [facility] [place] [facility] [address] [facility] [place] [id number] [place] [address]476 Sep, [facility] [place] [facility] [address] [id number] [place] [address] Sep, [facility] [place] [facility] [address] [id number] [place] [address] 97[address] Sep, [facility] [place] [facility] [address] [id number] [place] [address] Sep, [facility] [place] [facility] [address] [id number] [place] [address]22 Aug, [facility] [place] [facility] [address] [id number] [place] [address] Aug, [facility] [place] [facility] [address] [id number] [place] [address] 8598 Aug, [facility] [place] [facility] [address] [id number] [place] [address] 8918 Jul, [facility] [place] [facility] [address] [id number] [place] [address] 2052 Jul, [facility] [place] [facility] [address] [id number] [address] Jul, [facility] [place] [facility] [address] [id number] [place] [address]- 2493 Jul, [facility] [place] [facility] [address] [id number] [place] [address] Jun, [facility] [place] [facility] [address] [id number] [place] [address] Jun, [facility] [place] [facility] [address] [id number] [place] [address] 6418 18 Jun, 2011 [facility] [place] [facility] [address] [id number] [place] [address] 6170 Jun, [facility] [place] [facility] [address] [id number] [place] [address] Jun, [facility] [place] [facility] [address] [id number] [place] [address] Jun, [facility] [place] [facility] [address] [id number] [place] [address]- 6976 11 Mar, 2011 [facility] [address] [id number] [place] [address] 9016 18 Dec, 2010 [facility] [place] [facility] [address] [id number] [place] [address] 2546 11 Dec, 2010 [facility] [address] [id number] [place] [address] 2546 18 Nov, 2010 [facility] [place] [facility] [address] [id number] [place] [address] 2546 16 Nov, 2010 [facility] [address] [id number] [place] [address]- 4111 10 Sep, 2010 [facility] [address] [id number] [place] [address]- 8636 31 Aug, 2010 [facility] [address] [id number] [place] [address]- 0356 29 Aug, 2010 [facility] [place] [facility] [address] [id number] [place] [address] 2542 29 Aug, 2010 [facility] [place] [facility] [address] [id number] [place] [address] 2546 29 Aug, 2010 [facility] [address] [facility] [place] [id number] [place] [address] 254 27 Aug, 2010 [facility] [place] [facility] [address] [id number] [place] [address] 2546 14 Aug, 2010 [facility] [place] [facility] [address] [id number] [place] [address] 2546 08 Aug, 2010 [facility] [place] [facility] [address] [id number] [place] [address] 2546 08 Aug, 2010 [facility] [place] [facility] [address] [id number] [place] [address] 2546 07 Aug, 2010 [facility] [place] [facility] [address] [id number] [place] [address] 2543 Aug, [facility] [place] [facility] [address] [id number] [place] [address]- 8562 Aug, [facility] [place] [facility] [address] [id number] [place] [address]- 1846 Aug, [facility] [place] [facility] [address] [id number] [place] [address]- 8331 Jul, [facility] [place] [facility] [address] [id number] [place] [address], [place] [address]- 9544 Jul, [facility] [place] [facility] [address] [id number] [place] [address] Jul, [facility] [place] [facility] [address] [id number] [place] [address]- 9735 Jul, [facility] [place] [facility] [address] [id number] [place] [address]- 5683 Jul, [facility] [place] [facility] [address] [id number] [place] [address]- 0804 Jul, [facility] [place] [facility] [address] [id number] [place] [address]- 7917 Jun, [facility] [place] [facility] [address] [id number] [place] [address]- 7356 Jun, [facility] [place] [facility] [address] [id number] [place] [address]- 1593 Jun, [facility] [place] [facility] [address] [id number] [place] [address] Jun, [facility] [place] [facility] [address] [id number] [place] [address]- 6965 Apr, [facility] [place] [facility] [address] [id number] [place] [address]- 8253 Mar, [facility] [place] [facility] [address] [id number] [place] [address]- 8365 Feb, [facility] [place] [facility] [address] [id number] [place] [address]- 75[address] January, [facility] [place] [facility] [address] [id number] [place] [address]- 1103 15 Dec, 2009 [facility] [place] [facility] [address] [id number] [place] [address]- 8624 Nov, [facility] [place] [facility] [address] [id number] [place] [id number] Aug, [facility] [place] [facility] [address] [id number] [address] Aug, [facility] [place] [facility] [address] [id number] [place] [address] Aug, [facility] [place] [facility] [address] [id number] [place] [address] Jul, [facility] [place] [facility] [address] [id number] [place] [address] Jul, [facility] [place] [facility] [address] [id number] [place] [address] Jul, [facility] [place] [facility] [address] [id number] [place] [address] 30 Jun, 2009 [facility] [place] [facility] [address] [id number] [place] [address] 29 Jun, 2009 [facility] [place] [facility] [address] [id number] [place] [address] Jun, [facility] [place] [facility] [address] [id number] [place] [address] Jun, [facility] [place] [facility] [address] [id number] [place] [address] Jun, [facility] [place] [facility] [address] [id number] [place] [address] Jun, [facility] [place] [facility] [address] [id number] [place] [address] Apr, [facility] [place] [facility] [address] [facility] [place] [id number] [place] [address] Apr, [facility] [address] [facility] [place] [id number] [place] [address] Feb, [facility] [address] [facility] [place] [id number] [place] [address] January, [facility] [address] [facility] [place] [id number] [place] [address] Dec, IMMUNIZATIONS No Known Immunizations SOCIAL HISTORY Never Assessed REASON FOR VISIT knee f/u. Consult Chester Glez;Mendy RT(R) PLAN OF CARE Activity Details Follow Up prn Reason: VITAL SIGNS MEDICATIONS Unknown Medications RESULTS No Results PROCEDURES Procedure Date Ordered Result Body Site DRAIN/INJECT, JOINT/BURSA Oct 19, 2017 [facility] VISIT ESTABLISHED PATIENT Oct 19, 2017 DEPO MEDROL 80 MG/ML Oct 19, 2017 INSTRUCTIONS MEDICATIONS ADMINISTERED No Known Medications MEDICAL (GENERAL) HISTORY Type Description Date Medical History type II diabetes Medical History coronary artery disease stress test 01/5015 Medical History chronic obstructive pulmonary disease (COPD) Medical History gastroesophageal reflux disease (GERD) Medical History acute renal failure Medical History erectile dysfunction Medical History hyperlipidemia Medical History obesity Medical History skin cancer-basal cell R jehovah's witness (removed) Medical History Arthritis Medical History degenerative [...] History resection of skin cancer from Right jehovah's witness Surgical History Biopsy of Lung Bilateral/Left lung lymph node 09/2016 Surgical History Bone Marrow Biopsy Surgical History port in the right chest wall 12/2016 Hospitalization History [facility] low potassium, low magnesium, chest painina 01/2015 Hospitalization History inability to urinate 09/16/15 Hospitalization History [facility] early 1999' Hospitalization History hyperkalemia 10/2017 Hospitalization History fluid in lung
--- OUTSIDE RECORDS SUMMARY | 2018-08-08 12:51 | XMS REPORT ---
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 Name Role Phone NOEMI WASHBURN Unavailable PROBLEMS Type Condition ICD9-CM Code MCS46-ZN Code Onset Dates Condition Status SNOMED Code Problem Chronic lymphocytic leukemia C91.10 Active 03754627 Problem Insomnia, unspecified type G47.00 Active 537399377 Problem Lymphocytosis D72.820 Active 52622464 Problem Anxiety F41.9 Active 34962897 Problem Eye exam abnormal R93.8 Active 703725777 Problem Morbid obesity E66.01 Active 063733799 Problem Diabetic polyneuropathy associated with type 2 diabetes mellitus E11.42 Active 49994372 Problem Essential hypertension I10 Active 14169714 Problem Falling R29.6 Active 249476462 Problem 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 Active 042800149 Problem Cough R05 Active 69874758 Problem Dysuria R30.0 Active 79406863 Problem Eustachian tube dysfunction, unspecified laterality H69.80 Active 67138042 Problem Bilateral primary osteoarthritis of knee M17.0 Active 487506381 Problem Polyneuropathy associated with underlying disease G63 Active 667619142 Problem Anemia of chronic illness D63.8 Active 330016351 Problem Retinal edema H35.81 Active 8710190 Problem DM neuro manif type II E11.49 Active 43235794 Problem Diabetes E11.9 Active 43878290 Problem Hypokalemia E87.6 Active 14025467 Problem Benign prostatic hyperplasia with lower urinary tract symptoms, unspecified morphology N40.1 Active 745101129 Problem Reactive airway disease J45.909 Active 141208927991 Problem Bipolar I disorder, most recent episode (or current) mixed, moderate F31.62 Active 70345698 Problem Chronic pain G89.29 Active 63792439 Problem Leukocytosis D72.829 Active 459715056 ALLERGIES Substance Reaction Event Type Date Status Breo Ellipta Tongue Swelling Drug Allergy Apr, Active ENCOUNTERS Encounter Location Date Diagnosis [facility] [address], [place] [address] Dec, [facility] [id number] [place] [address] 43442- 8367 Dec, [facility] [id number] [place] [address] 85528- 1609 Dec, [facility] [id number] [place] [address] 00533- 8710 Dec, Bipolar I disorder, most recent episode (or current) mixed, moderate F31.62 [facility] [id number] [place] [address] 10279- 8432 Nov, Bipolar I disorder, most recent episode (or current) mixed, moderate F31.62 [facility] [id number] [place] [address] 15941- 5620 Nov, Chronic pain G89.29 [facility] [id number] [place] [address] 38391- 3817 Nov, Bipolar I disorder, most recent episode (or current) mixed, moderate F31.62 [facility] [id number] [place] [address] 53428- 3445 Nov, Hypokalemia E87.6 [facility] [id number] [place] [address] 73400- 1956 Nov, Bipolar I disorder, most recent episode (or current) mixed, moderate F31.62 [facility] [id number] [place] [address] 83337- 5521 Oct, Chronic pain G89.29 [facility] [id number] [place] [address] 30840- 5011 Oct, BMI 50.0-59.9, adult Z68.43 and Bipolar I disorder, most recent episode (or current) mixed, moderate F31.62 [facility] [id number] [place] [address] 99986- 8596 Oct, Bipolar I disorder, most recent episode (or current) mixed, moderate F31.62 [facility] [id number] [place] [address] 43637- 6740 Oct, [facility] [id number] [place] [address] 60964- 8094 Oct, Hypokalemia E87.6 [facility] [id number] [place] [address] 84689- 7373 Oct, DM neuro manif type II E11.49 [facility] [address] 90525- 9115 Oct, Bipolar I disorder, most recent episode (or current) mixed, moderate F31.62 [facility] [id number] [place] [address] 17656- 4471 Oct, Bipolar I disorder, most recent episode (or current) mixed, moderate F31.62 [facility] [id number] [place] [address] 67081- 4168 Oct, Hyperkalemia E87.5 ; Falling R29.6 ; BMI 50.0-59.9, adult Z68.43 and Acute left ankle pain M25.572 [facility] [id number] [place] [address] 64911- 9186 Oct, DM neuro manif type II E11.49 [facility] [id number] [place] [address] 09836- 6629 Oct, [facility] [id number] [place] [address] 37548- 7376 Sep, Chronic pain G89.29 [facility] [id number] [place] [address] 78270- 1669 Sep, [facility] [id number] [place] [address] 65275- 4194 Sep, Bilateral primary osteoarthritis of knee M17.0 [facility] [id number] [place] [address] 45685- 6547 18 Sep, 2017 Generalized edema R60.1 [facility] [id number] [place] [address] 78880- 5274 16 Sep, 2017 Bipolar I disorder, most recent episode (or current) mixed, moderate F31.62 [facility] [id number] [place] [address] 67628- 9519 15 Sep, 2017 Hypoxia R09.02 ; Other hypervolemia E87.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 ; Anemia of chronic illness D63.8 and BMI 50.0- 59.9, adult Z68.[address] 02204- 7272 Sep, [facility] [address] 25184- 0492 Sep, Bipolar I disorder, most recent episode (or current) mixed, moderate F31.62 [facility] [id number] [place] [address] 55843- 3104 Aug, Chronic pain G89.29 [facility] [id number] [place] [address] 34254- 9846 Aug, Generalized edema R60.1 [facility] [id number] [place] [address] 32098- 5240 Aug, [facility] [id number] [place] [address] 07042- 6181 Aug, [facility] [id number] [place] [address] 18595- 3858 Aug, Bipolar I disorder, most recent episode (or current) mixed, moderate F31.62 [facility] [id number] [place] [address] 65657- 5054 Aug, Bipolar I disorder, most recent episode (or current) mixed, moderate F31.62 [facility] [id number] [place] [address] 47910- 0410 Aug, Chronic pain G89.29 [facility] [id number] [place] [address] 25107- 0571 Jul, Bipolar I disorder, most recent episode (or current) mixed, moderate F31.62 [facility] [id number] [place] [address] 87270- 6638 Jul, Bipolar I disorder, most recent episode (or current) mixed, moderate F31.62 and BMI 60.0-69.9, adult Z68.44 [facility] [id number] [place] [address] 69821- 7304 Jul, Bipolar I disorder, most recent episode (or current) mixed, moderate F31.62 [facility] [id number] [place] [address] 92735- 0520 Jul, Chronic pain G89.29 [facility] [id number] [place] [address] 71384- 4305 Jul, Bipolar I disorder, most recent episode (or current) mixed, moderate F31.62 [facility] [id number] [place] [address] 22631- 4808 Jun, Polyneuropathy associated with underlying disease G63 and Diabetes E11.9 [facility] [id number] [place] [address] 61076- 5582 Jun, Bipolar I disorder, most recent episode (or current) mixed, moderate F31.62 [facility] [id number] [place] [address] 28790- 1847 Jun, Chronic pain G89.29 [facility] [id number] [place] [address] 37829- 4410 May, Bipolar I disorder, most recent episode (or current) mixed, moderate F31.62 [facility] [address] [address]- 4479 21 May, 2017 Bipolar I disorder, most recent episode (or current) mixed, moderate F31.62 [facility] [address], [place] [address]- 6890 20 May, 2017 Diabetic polyneuropathy associated with type 2 diabetes mellitus E11.42 [facility] [id number] [place] [address] 90154- 7221 18 May, 2017 Bipolar I disorder, most recent episode (or current) mixed, moderate F31.62 [facility] [id number] [place] [address] 454639- 5890 13 May, 2017 Bipolar I disorder, most recent episode (or current) mixed, moderate F31.62 [facility] [id number] [place] [address] 57447- 7035 12 May, 2017 Chronic pain G89.29 [facility] [id number] [place] [address] 37346- 8693 30 Apr, 2017 Bipolar I disorder, most recent episode (or current) mixed, moderate F31.62 [facility] [id number] [place] [address] 14285- 9828 Apr, [facility] [address] [address]- 6253 Apr, Chronic pain G89.29 and DM neuro manif type II E11.49 [facility] [address] [address]- 1375 Apr, [facility] [id number] [place] [address] 45343- 3655 16 Apr, 2017 Bipolar I disorder, most recent episode (or current) mixed, moderate F31.62 [facility] [id number] [place] [address] 86050- 6017 14 Apr, 2017 Chronic pain G89.29 [facility] [id number] [place] [address] 59316- 5613 Apr, Iliotibial band syndrome, left M76.32 [facility] [id number] [place] [address] 71242- 4826 Apr, Bipolar I disorder, most recent episode (or current) mixed, moderate F31.62 [facility] [id number] [place] [address] 69216- 2691 Mar, Bipolar I disorder, most recent episode (or current) mixed, moderate F31.62 [facility] [id number] [place] [address] 00160- 1511 Mar, Bipolar I disorder, most recent episode (or current) mixed, moderate F31.62 [facility] [id number] [place] [address] 23493- 9404 Mar, [facility] [id number] [place] [address] 94524- 9076 Mar, Bipolar I disorder, most recent episode (or current) mixed, moderate F31.62 [facility] [id number] [place] [address] 41504- 1557 Mar, Chronic pain G89.29 [facility] [id number] [place] [address] 58505- 9277 Mar, Bipolar I disorder, most recent episode (or current) mixed, moderate F31.62 [facility] [id number] [place] [address] 90143- 9602 Mar, Bipolar I disorder, most recent episode (or current) mixed, moderate F31.62 [facility] [id number] [place] [address] 61670- 5035 Mar, Acute pain of left knee M25.562 ; Left hip pain M25.552 ; Generalized edema R60.1 and Tongue swelling R22.0 [facility] [id number] [place] [address] 56617- 3196 Mar, [facility] [address], [place] [address]- 1315 Feb, Chronic pain G89.29 [facility] [id number] [place] [address] 54162- 3366 Feb, Diabetes E11.9 [facility] [id number] [place] [address] 53460- 4634 January, Chronic pain G89.29 [facility] [id number] [place] [address] 32564- 2071 January, [facility] [id number] [place] [address] 17552- 7898 January, Bipolar I disorder, most recent episode (or current) mixed, moderate F31.62 [facility] [id number] [place] [address] 61214- 5826 Dec, Bipolar I disorder, most recent episode (or current) mixed, moderate F31.62 [facility] [id number] [place] [address] 26979- 6281 Dec, Chronic pain G89.29 [facility] [id number] [place] [address] 73337- 9631 Dec, Bipolar I disorder, most recent episode (or current) mixed, moderate F31.62 [facility] [address] [address]- 1870 Dec, Diabetes E11.9 ; Essential hypertension I10 ; Chronic pain G89.29 and Morbid obesity E66.01 [facility] [address], [place] [address]- 7769 Dec, [facility] [id number] [place] [address] 32775- 3653 Dec, Bipolar I disorder, most recent episode (or current) mixed, moderate F31.62 [facility] [id number] [place] [address] 88734- 0781 Dec, Bipolar I disorder, most recent episode (or current) mixed, moderate F31.62 [facility] [address] [address]- 5453 Nov, Chronic pain G89.29 [facility] [address], [place] [address]- 8876 Nov, Bipolar I disorder, most recent episode (or current) mixed, moderate F31.62 [facility] [id number] [place] [address] 92729- 3779 Nov, [facility] [id number] [place] [address] 45401- 1394 Nov, Bipolar I disorder, most recent episode (or current) mixed, moderate F31.62 [facility] [id number] [place] [address] 87419- 4565 Nov, Bipolar I disorder, most recent episode (or current) mixed, moderate F31.62 [facility] [address] [address]- 6018 Nov, [facility] [id number] [place] [address] 15712- 9151 Nov, [facility] [id number] [place] [address] 06487- 9191 Nov, [facility] [id number] [place] [address] 22567- 6071 Oct, Chronic pain G89.29 [facility] [address] [address]- 3903 Oct, Bipolar I disorder, most recent episode (or current) mixed, moderate F31.62 [facility] [address] [address]- 1986 Oct, [facility] [address] [address]- 3574 Oct, Chronic pain G89.29 ; Diabetes E11.9 ; Anxiety F41.9 and 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 [facility] [id number] [place] [address] 24602- 7176 Oct, [facility] [id number] [place] [address] 08836- 6196 Oct, Diabetes E11.9 [facility] [id number] [place] [address] 08167 2544 Oct, Bipolar I disorder, most recent episode (or current) mixed, moderate F31.62 [facility] [id number] [place] [address] 49939- 5235 Sep, Chronic pain G89.29 [facility] [id number] [place] [address] 57329- 7251 Sep, Chronic pain G89.29 [facility] [id number] [place] [address] 11563- 4292 Aug, Chronic pain G89.29 [facility] [id number] [place] [address] 12721- 7824 Jul, [facility] [id number] [place] [address] 94784- 2250 Jul, Diabetes E11.9 [facility] [id number] [place] [address] 64127- 9631 Jul, Chronic pain G89.29 [facility] [id number] [place] [address] 07596- 6211 Jul, Bipolar I disorder, most recent episode (or current) mixed, moderate F31.62 [facility] [id number] [place] [address] 52798- 4591 Jun, Bipolar I disorder, most recent episode (or current) mixed, moderate F31.62 [facility] [id number] [place] [address] 07102- 1937 Jun, [facility] [id number] [place] [address] 48499- 5273 Jun, Bipolar I disorder, most recent episode (or current) mixed, moderate F31.62 [facility] [id number] [place] [address] 70009- 5660 30 May, 2016 Insomnia, unspecified type G47.00 [facility] [id number] [place] [address] 58333- 8622 May, Bipolar I disorder, most recent episode (or current) mixed, moderate F31.62 [facility] [id number] [place] [address] 87360- 8460 14 May, 2016 [facility] [id number] [place] [address] 32659- 4752 May, Bipolar I disorder, most recent episode (or current) mixed, moderate F31.62 [facility] [id number] [place] [address] 97580- 1041 May, Diabetes E11.9 and Essential hypertension I10 [facility] [id number] [place] [address] 05104- 3247 Apr, Chronic pain G89.29 [facility] [id number] [place] [address] 09736- 2486 Apr, Bipolar I disorder, most recent episode (or current) mixed, moderate F31.62 [facility] [id number] [place] [address] 48220- 0041 Apr, [facility] [id number] [place] [address] 56995- 0975 Apr, [facility] [id number] [place] [address] 72992- 0977 Mar, Chronic pain G89.29 ; Headache, unspecified headache type R51 ; Neuropathy G62.9 ; Pain of right hip joint M25.551 and Essential hypertension I10 [facility] [id number] [place] [address] 37796- 9420 Mar, Chronic pain G89.29 [facility] [id number] [place] [address] 73312- 1691 Mar, Bipolar I disorder, most recent episode (or current) mixed, moderate F31.62 [facility] [id number] [place] [address] 20823- 6463 Feb, Bipolar I disorder, most recent episode (or current) mixed, moderate F31.62 and Insomnia, unspecified type G47.00 [facility] [id number] [place] [address] 77338- 2356 Feb, Chronic pain G89.29 [facility] [id number] [place] [address] 72528- 2611 Feb, Bipolar I disorder, most recent episode (or current) mixed, moderate F31.62 [facility] [id number] [place] [address] 97474- 8398 January, Bipolar I disorder, most recent episode (or current) mixed, moderate F31.62 [facility] [id number] [place] [address] 97487- 2643 January, Chronic pain G89.29 [facility] [id number] [place] [address] 86125- 0593 January, Chronic pain G89.29 and Essential hypertension I10 [facility] [id number] [place] [address] 78365- 0225 January, Bipolar I disorder, most recent episode (or current) mixed, moderate F31.62 [facility] [id number] [place] [address] 45095- 7806 Dec, [facility] [id number] [place] [address] 5052 Dec, [facility] [id number] [place] [address] 49061- 2621 Dec, [facility] [address] [address]- 6001 Dec, [facility] [id number] [place] [address] 30709- 6814 Nov, Reactive airway disease J45.909 [facility] [id number] [place] [address] 39332- 1560 Nov, [facility] [address] 39578- 1272 Nov, [facility] [id number] [place] [address] 91714- 1396 Nov, [facility] [id number] [place] [address] 79450- 2027 Nov, [facility] [id number] [place] [address] 20664- 8363 Nov, Onychomycosis B35.1 ; Hammertoe M20.40 ; Kite or callus L84 and DM neuro manif type II E11.49 [facility] [id number] [place] [address] 93411- 7059 Nov, Chronic pain G89.29 ; Leukocytosis D72.829 and Diabetes E11.9 [facility] [id number] [place] [address] 96018- 1251 Nov, [facility] [id number] [place] [address] 49770- 4254 Oct, Bronchitis J40 [facility] [id number] [place] [address] 45974- 2098 Oct, [facility] [id number] [place] [address] 65479- 1525 Oct, [facility] [address] [address]- 4306 Oct, Mastoiditis, unspecified laterality H70.90 and Type 2 diabetes mellitus with complication E11.8 [facility] [id number] [place] [address] 06681- 1939 Sep, [facility] [id number] [place] [address] 16170- 0512 Sep, Dysuria R30.0 ; Cough R05 ; Benign prostatic hyperplasia with lower urinary tract symptoms, unspecified morphology N40.1 ; Hypokalemia E87.6 and Eustachian tube dysfunction, unspecified laterality H69.80 [facility] [id number] [place] [address] 22445- 8365 Sep, Moderate mixed bipolar I disorder F31.62 [facility] [address] 62961- 0154 Sep, Hypokalemia E87.6 [facility] [id number] [place] [address] 95131- 1921 Sep, [facility] [id number] [place] [address] 42058- 6757 Sep, Upper respiratory tract infection, unspecified type J06.9 [facility] [id number] [place] [address] 66239- 5323 Aug, [facility] [id number] [place] [address] [id number]- [id number] Aug, Dysuria R30.0 [facility] [id number] [place] [address] [id number]- [id number] Aug, [facility] [id number] [place] [address] [id number]- [id number] Jul, [facility] [id number] [place] [address] [id number] [id number] Jul, [facility] [id number] [place] [address] [id number]- [id number] Jul, [facility] [id number] [place] [address] [id number]- [id number] Jul, [facility] [id number] [address] Jun, [facility] [id number] [place] [address] [id number]- [id number] Jun, [facility] [id number] [address] Jun, [facility] [id number] [place] [address] [id number] [id number] May, [facility] [id number] [place] [address] 95440- 5054 May, Bipolar I disorder, most recent episode (or current) mixed, moderate 296.62 [facility] [id number] [place] [address] 90622- 1569 May, [facility] [id number] [place] [address] 57241- 6338 May, Bipolar I disorder, most recent episode (or current) mixed, moderate 296.62 and Major depressive disorder, recurrent episode, severe, specified as with psychotic behavior 296.34 [facility] [id number] [place] [address] 60853- 5244 May, Bipolar I disorder, most recent episode (or current) mixed, moderate 296.62 [facility] [id number] [address] 8422 May, [facility] [id number] [place] [address] 34058- 9612 Apr, [facility] [id number] [address] 2035 Apr, [facility] [id number] [place] [address] 21081- 9891 Apr, Unspecified disorder of kidney and ureter 593.9 and Diabetes mellitus type 2, uncontrolled 250.02 [facility] [id number] [place] [address] 71384- 3563 Apr, [facility] [id number] [address] 1722 Apr, [facility] [id number] [place] [address] 34013- 6483 Apr, [facility] [id number] [address]- 6552 Apr, [facility] [id number] [place] [address] 74231- 5430 Apr, Diabetes mellitus type II, uncontrolled 250.02 [facility] [id number] [place] [address] 53841- 7453 Apr, [facility] [id number] [place] [address] 07908- 2172 Mar, [facility] [id number] [place] [address] 08931- 9086 Mar, [facility] [id number] [place] [address] 43894- 7740 Mar, [facility] [id number] [place] [address] 06702- 0275 Mar, Major depressive disorder, recurrent episode, severe, specified as with psychotic behavior 296.34 and Bipolar I disorder, most recent episode (or current) mixed, moderate 296.62 [facility] [id number] [place] [address] 84880- 9386 Mar, Diabetes 250.00 ; Anuria 788.5 ; Nausea and vomiting 787.01 and Diarrhea 787.91 [facility] [id number] [address] 2917 Mar, Diabetes 250.00 [facility] [id number] [place] [address] 47556- 0653 Mar, [facility] [id number] [address]- 4738 Mar, Diabetes 250.00 [facility] [id number] [address]- 1028 Mar, [facility] [id number] [place] [address] 04035- 9972 Mar, [facility] [id number] [place] [address] 28020- 5060 Mar, [facility] [id number] [place] [address] 70009- 4487 Mar, [facility] [id number] [place] [address] 98616- 9317 Mar, Bipolar I disorder, most recent episode (or current) mixed, moderate 296.62 and Major depressive disorder, recurrent episode, severe, specified as with psychotic behavior 296.34 [facility] [id number] [place] [address] 46334- 2970 Mar, Magnesium deficiency 275.2 ; Hypokalemia 276.8 ; Nausea & vomiting 787.01 and Diabetes mellitus type 2, uncontrolled 250.02 [facility] [id number] [place] [address] 05870- 4769 Feb, [facility] [id number] [place] [address] 02750- 0943 Feb, Bipolar I disorder, most recent episode (or current) mixed, moderate 296.62 [facility] [id number] [place] [address] 13978- 8284 Feb, Nausea and vomiting 787.01 ; Left elbow pain 719.42 ; Anuria 788.5 and Diabetes 250.00 [facility] [id number] [place] [address] 32651- 4878 Feb, [facility] [address] [place] [id number] [place] [address] 88588- 3869 Feb, Hypopotassemia 276.8 and Hypokalemia 276.8 [facility] [id number] [place] [address] 29619- 9094 Feb, Hypopotassemia 276.8 and Hypokalemia 276.8 [facility] [address] [address]- 9968 Feb, Seborrheic keratoses 702.19 [facility] [id number] [address]- 4790 Feb, Hypopotassemia 276.8 and Low magnesium levels 275.2 [facility] [id number] [place] [address] 12013- 7730 January, [facility] [id number] [place] [address] 71764- 5489 January, [facility] [id number] [place] [address] 08458- 1439 January, [facility] [id number] [place] [address] 72816- 0375 January, Scalp lesion 709.9 [facility] [id number] [place] [address] 90305- 9943 January, [facility] [id number] [place] [address] 20099- 3597 Dec, Tear of medial cartilage or meniscus of knee, current 836.0 and 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 [facility] [id number] [place] [address] 57778- 9960 Dec, [facility] [id number] [place] [address] 74955- 8997 Dec, [facility] [id number] [place] [address] 07705- 0702 Dec, Squamous cell carcinoma, 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 [facility] [id number] [place] [address] 04012- 9967 14 Dec, 2014 [facility] [id number] [place] [address] 99955- 4844 Dec, [facility] [place] [facility] [address] [id number] [place] [address]- 1114 Nov, [facility] [place] [facility] [address] [id number] [place] [address]- 7812 Nov, [facility] [place] [facility] [address] [id number] [place] [address]- 6447 Nov, [facility] [place] [facility] [address] [id number] [place] [address]- 2955 Nov, [facility] [place] [facility] [address] [id number] [place] [address]- 8915 Nov, [facility] [place] [facility] [address] [id number] [place] [address]- 2028 Nov, [facility] [place] [facility] [address] [id number] [place] [address]- 8189 Nov, [facility] [place] [facility] [address] [id number] [place] [address]- 6990 Nov, [facility] [place] [facility] [address] [id number] [place] [address]- 2898 Nov, [facility] [place] [facility] [address] [id number] [place] [address]- 5964 Nov, [facility] [place] [facility] [address] [id number] [place] [address]- 8984 Nov, [facility] [place] [facility] [address] [id number] [place] [address]- 1291 Nov, [facility] [place] [facility] [address] [id number] [place] [address]- 8284 Oct, [facility] [place] [facility] [address] [id number] [place] [address]- 5931 Oct, [facility] [place] [facility] [address] [id number] [place] [address]- 1341 Oct, [facility] [place] [facility] [address] [id number] [place] [address]- 2793 Oct, 2014 [facility] [place] [facility] [address] [id number] [place] [address]- 5338 Oct, [facility] [place] [facility] [address] [id number] [place] [address]- 0676 Oct, 2014 [facility] [place] [facility] [address] [id number] [place] [address]- 5636 Oct, 2014 [facility] [place] [facility] [address] [id number] [place] [address]- 5167 Oct, [facility] [place] [facility] [address] [id number] [place] [address]- 7344 Oct, [facility] [place] [facility] [address] [id number] [place] [address]- 1693 Sep, [facility] [place] [facility] [address] [id number] [place] [address]- 2512 Sep, [facility] [place] [facility] [address] [id number] [place] [address]- 2989 Sep, [facility] [place] [facility] [address] [id number] [place] [address]- 5543 Sep, [facility] [place] [facility] [address] [facility] [id number] [place] [address]- 4882 Sep, [facility] [place] [facility] [address] [id number] [place] [address]- 8501 Sep, [facility] [place] [facility] [address] [id number] [address]- 6639 Sep, [facility] [place] [facility] [address] [id number] [place] [address]- 0437 Sep, [facility] [place] [facility] [address] [id number] [place] [address]- 5312 Sep, [facility] [place] [facility] [address] [id number] [place] [address]- 2558 Sep, [facility] [place] [facility] [address] [id number] [place] [address]- 7627 08 Sep, 2014 [facility] [place] [facility] [address] [id number] [place] [address]- 8348 Sep, [facility] [place] [facility] [address] [id number] [place] [address]- 9991 Sep, [facility] [place] [facility] [address] [id number] [place] [address]- 4769 Sep, [facility] [place] [facility] [address] [id number] [place] [address]- 3573 Sep, [facility] [place] [facility] [address] [id number] [place] [address]- 3786 Sep, [facility] [place] [facility] [address] [id number] [place] [address]- 3987 Aug, [facility] [place] [facility] [address] [id number] [place] [address]- 8192 Aug, [facility] [place] [facility] [address] [id number] [place] [address]- 5368 Aug, [facility] [place] [facility] [address] [id number] [place] [address]- 3626 Aug, [facility] [place] [facility] [address] [id number] [place] [address]- 3096 Aug, [facility] [place] [facility] [address] [id number] [place] [address]- 7752 31 Aug, 2014 [facility] [place] [facility] [address] [id number] [place] 5186 Aug, [facility] [place] [facility] [address] [id number] [place] [address]- 8196 17 Aug, 2014 [facility] [place] [facility] [address] [id number] [place] [address]- 4348 12 Aug, 2014 [facility] [place] [facility] [address] [id number] [place] [address]- 2385 Aug, [facility] [address] [id number] [place] [address]- 3029 Aug, [facility] [address] [place] [id number] Aug, [facility] [address] [id number] [place] [address]- 7967 Aug, [facility] [address] [id number] [place] [address]- 4072 Aug, [facility] [address] [id number] [place] [address]- 1622 Aug, [facility] [address] [id number] [place] [address]- 6852 Aug, [facility] [address] [id number] [place] [address]- 5983 Aug, [facility] [address] [id number] [place] [address]- 4200 Aug, [facility] [address] [id number] [place] [address]- 0018 Aug, [facility] [address] [id number] [place] [address]- 0888 Aug, [facility] [address] [id number] [place] [address]- 0112 Aug, [facility] [address] [id number] [place] [address]- 7649 Aug, [facility] [address] [id number] [place] [address]- 3246 Aug, [facility] [address] [id number] [place] [address]- 5551 Aug, [facility] [address] [id number] [place] [address]- 9612 Aug, [facility] [address] [id number] [place] [address]- 5961 Aug, [facility] [place] [facility] [address] [id number] [place] [address]- 1053 Aug, [facility] [place] [facility] [address] [id number] [place] [address]- 3864 Aug, [facility] [place] [facility] [address] [id number] [place] [address]- 4842 Aug, [facility] [place] [facility] [address] [id number] [place] [address]- 9277 Aug, [facility] [place] [facility] [address] [id number] [place] [address]- 5745 Jul, [facility] [place] [facility] [address] [id number] [place] [address]- 0038 Jul, [facility] [place] [facility] [address] [id number] [place] [address]- 7058 Jul, [facility] [place] [facility] [address] [id number] [place] [address]- 7814 Jul, [facility] [place] [facility] [address] [id number] [place] [address]- 7179 Jul, [facility] [place] [facility] [address] [facility] [id number] [place] [address]- 1663 Jul, [facility] [place] [facility] [address] [id number] [place] [address]- 3066 Jul, [facility] [place] [facility] [address] [id number], [place] [address]- 7342 Jul, [facility] [place] [facility] [address] [id number] [place] [address]- 6753 Jul, [facility] [place] [facility] [address] [id number] [place] [address]- 8235 Jul, [facility] [place] [facility] [address] [id number] [place] [address]- 1736 Jun, [facility] [place] [facility] [address] [id number] [place] [address]- 6478 Jun, [facility] [place] [facility] [address] [id number] [place] [address]- 3977 Jun, [facility] [place] [facility] [address] [id number] [place] [address]- 6736 Jun, [facility] [place] [facility] [address] [id number] [place] [address]- 8424 Jun, [facility] [place] [facility] [address] [id number] [place] [address]- 3844 15 Jun, 2014 [facility] [place] [facility] [address] [id number] [place] [address]- 3992 Jun, [facility] [place] [facility] [address] [id number] [place] [address]- 5943 Jun, [facility] [place] [facility] [address] [id number] [place] [address]- 4433 Jun, [facility] [place] [facility] [address] [id number] [place] [address]- 8784 Jun, [facility] [place] [facility] [address] [id number] [place] [address]- 3244 29 May, 2013 [facility] [place] [facility] [address] [id number] [place] [address]- 2545 29 Sep, 2013 [facility] [place] [facility] [address] [id number] [place] [address]- 2549 26 Sep, 2013 [facility] [place] [facility] [address] [id number] [place] [address] 2541 26 Sep, 2013 [facility] [place] [facility] [address] [id number] [place] [address] 2546 17 Sep, 2013 [facility] [place] [facility] [address] [id number] [place] [address]- 2546 17 Sep, 2013 [facility] [place] [facility] [address] [id number] [place] [address]- 2676 15 May, 2013 [facility] [place] [facility] [address] [id number] [place] [address]- 9166 15 May, 2013 [facility] [place] [facility] [address] [id number] [place] [address]- 9116 15 May, 2013 [facility] [place] [facility] [address] [id number] [place] [address]- 2076 15 May, 2013 [facility] [place] [facility] [address] [id number] [place] [address]- 4586 10 May, 2013 [facility] [place] [facility] [address] [id number] [place] [address]- 0216 10 May, 2013 [facility] [place] [facility] [address] [id number] [place] [address]- 9863 May, [facility] [place] [facility] [address] [id number] [place] [address]- 9140 May, 2013 [facility] [place] [facility] [address] [id number] [place] [address]- 2760 May, [facility] [place] [facility] [address] [id number] [place] [address]- 7592 May, [facility] [place] [facility] [address] [id number] [place] [address]- 6605 Apr, [facility] [place] [facility] [address] [id number] [place] [address]- 4964 Apr, [facility] [place] [facility] [address] [id number], [place] [address]- 8391 Apr, [facility] [place] [facility] [address] [id number] [place] [address]- 3797 Apr, [facility] [place] [facility] [address] [id number] [place] [address]- 3620 Apr, [facility] [place] [facility] [address] [id number] [place] [address]- 6576 Apr, [facility] [place] [facility] [address] [id number] [place] [address]- 5508 Apr, [facility] [place] [facility] [address] [id number] [facility] [place] [address]- 4021 Apr, [facility] [place] [facility] [address] [id number] [place] [address]- 9679 Apr, [facility] [place] [facility] [address] [id number] [place] [address]- 8380 Apr, [facility] [place] [facility] [address] [id number] [place] [address]- 2561 Apr, [facility] [place] [facility] [address] [id number] [place] [address]- 8946 Apr, [facility] [place] [facility] [address] [id number] [place] [address]- 5727 Apr, [facility] [place] [facility] [address] [id number] [place] [address]- 3963 Apr, [facility] [place] [facility] [address] [id number] [place] [address]- 8268 Apr, [facility] [place] [facility] [address] [id number] [place] [address]- 6803 Mar, [facility] [place] [facility] [address] [id number] [place] [address]- 8194 Mar, [facility] [place] [facility] [address] [id number] [place] [address]- 1924 Mar, [facility] [place] [facility] [address] [id number] [place] [address]- 4120 Mar, [facility] [place] [facility] [address] [id number] [place] [address]- 6796 Mar, [facility] [place] [facility] [address] [id number] [place] [address]- 1598 Mar, [facility] [place] [facility] [address] [id number] [place] [address]- 1266 Mar, [facility] [place] [facility] [address] [id number] [place] [address]- 3766 Mar, 2013 [facility] [place] [facility] [address] [id number] [place] [address]- 9024 Mar, 2013 [facility] [place] [facility] [address] [id number] [place] [address]- 0903 Mar, 2013 [facility] [place] [facility] [address] [id number] [place] [address]- 8699 Mar, 2013 [facility] [place] [facility] [address] [id number] [place] [address]- 7029 Mar, 2013 [facility] [place] [facility] [address] [id number] [place] [address]- 5584 Mar, 2013 [facility] [place] [facility] [address] [id number] [place] [address]- 0871 Mar, 2013 [facility] [place] [facility] [address] [id number] [place] [address]- 3030 Mar, 2013 [facility] [place] [facility] [address] [id number] [place] [address]- 7811 Mar, 2013 [facility] [place] [facility] [address] [id number] [place] [address]- 1073 Mar, [facility] [place] [facility] [address] [id number] [place] [address]- 3[address] Mar, [facility] [place] [facility] [address] [id number] [place] [address] Feb, [facility] [place] [facility] [address] [id number] [place] [address] Feb, [facility] [place] [facility] [address] [id number] [place] [address] Feb, [facility] [place] [facility] [address] [id number] [place] [address] Feb, [facility] [place] [facility] [address] [id number] [place] [address] Feb, [facility] [place] [facility] [address] [id number] [place] [address] Feb, [facility] [place] [facility] [address] [id number] [place] [address] Feb, [facility] [place] [facility] [address] [id number] [place] [address] Feb, [facility] [place] [facility] [address] [id number] [place] [address] Feb, [facility] [place] [facility] [address] [id number] [place] [address] Feb, [facility] [place] [facility] [address] [id number] [place] [address] Feb, [facility] [place] [facility] [address] [id number] [place] [address] Feb, [facility] [place] [facility] [address] [id number] [place] [address] Feb, [facility] [place] [facility] [address] [id number] [place] [address] Feb, [facility] [place] [facility] [address] [id number] [place] [address] January, [facility] [place] [facility] [address] [id number] [place] [address] January, [facility] [place] [facility] [address] [id number] [place] [address] January, [facility] [place] [facility] [address] [id number] [place] [address] January, [facility] [place] [facility] [address] [id number] [place] [address] January, [facility] [place] [facility] [address] [id number] [place] [address] January, [facility] [place] [facility] [address] [id number] [place] [address] January, [facility] [address] [id number] [place] [address] January, [facility] [address] [id number] [place] [address] January, [facility] [address] [id number] [place] [address] January, [facility] [address] [id number] [place] [address] January, [facility] [address] [id number] [place] [address] January, [facility] [address] [id number] [place] [address] January, [facility] [address] [id number] [place] [address] January, [facility] [address] [id number] [place] [address] Dec[facility] [place] [facility] [address] [id number] [place] [address] Dec, [facility] [address] [id number] [place] [address] Dec, [facility] [place] [facility] [address] [id number] [place] [address] Dec, [facility] [place] [facility] [address] [id number] [place] [address] Dec, [facility] [place] [facility] [address] [id number] [place] [address] Dec, [facility] [place] [facility] [address] [id number] [place] [address] Dec, [facility] [place] [facility] [address] [id number] [place] [address] Dec, [facility] [place] [facility] [address] [id number] [place] [address] Dec, [facility] [place] [facility] [address] [id number] [place] [address] Dec, [facility] [place] [facility] [address] [id number] [place] [address] Nov, [facility] [place] [facility] [address] [id number] [place] [address] Nov, [facility] [place] [facility] [address] [id number] [place] [address] Nov, [facility] [place] [facility] [address] [id number] [place] [address]- [address] Nov, [facility] [place] [facility] [address] [id number] [place] [address] Nov, [facility] [place] [facility] [address] [id number] [place] [address] Nov, [facility] [place] [facility] [address] [id number] [place] [address] Nov, [facility] [place] [facility] [address] [id number] [place] [address] Nov, [facility] [place] [facility] [address] [id number] [place] [address]- [address] Nov, [facility] [place] [facility] [address] [id number] [place] [address] Nov, [facility] [place] [facility] [address] [id number] [place] [address] Oct, [facility] [place] [facility] [address] [id number] [place] [address] Oct, [facility] [place] [facility] [address] [id number] [place] [address] Oct, [facility] [place] [facility] [address] [id number] [place] [address] Oct, [facility] [place] [facility] [address] [id number] [place] [address] Oct, [facility] [place] [facility] [address] [id number] [place] [address] Oct, [facility] [place] [facility] [address] [address] [id number] [place] [address] Oct, [facility] [place] [facility] [address] [id number] [place] [address] Oct, [facility] [place] [facility] [address] [id number] [place] [address] 2665 Oct, [facility] [place] [facility] [address] [id number] [place] [address] 4679 Oct, [facility] [place] [facility] [address] [id number] [place] [address] 8166 Oct, [facility] [place] [facility] [address] [id number] [place] [address]- 3662 Oct, [facility] [place] [facility] [address] [facility] [id number] [place] [address] Oct, [facility] [place] [facility] [address] [id number] [place] [address] 1819 Oct, [facility] [place] [facility] [address] [id number] [place] [address] 4759 Sep, [facility] [place] [facility] [address] [id number] [place] [address] 7497 Sep, [facility] [place] [facility] [address] [id number] [place] [address] 2546 Sep, [facility] [place] [facility] [address] [id number] [place] [address] 7144 Sep, [facility] [place] [facility] [address] [id number] [place] [address]- 9894 14 Sep, 2013 [facility] [place] [facility] [address] [id number] [place] [address]- 8383 14 Sep, 2013 [facility] [place] [facility] [address] [id number] [place] [address]- 8267 14 Sep, 2013 [facility] [place] [facility] [address] [id number] [place] [address]- 5619 Sep, [facility] [place] [facility] [address] [id number] [place] [address]- 4660 08 Sep, 2013 [facility] [place] [facility] [address] [id number] [place] [address]- 6358 Sep, [facility] [place] [facility] [address] [id number] [place] [address]- 9533 Aug, [facility] [place] [facility] [address] [id number] [place] [address]- 0862 Aug, [facility] [place] [facility] [address] [id number] [place] [address]- 1175 Jul, [facility] [place] [facility] [address] [id number] [address] Jul, [facility] [place] [facility] [address] [id number] [place] [address]- 6639 Jul, [facility] [place] [facility] [address] [id number] [address] 0293 Jul, [facility] [place] [facility] [address] [id number] [address] 6218 Jul, [facility] [place] [facility] [address] [id number] [place] [address]- 8756 Jul, [facility] [place] [facility] [address] [id number], [place] [address] 9843 Jul, [facility] [place] [facility] [address] [id number] [address] 4937 Jul, [facility] [place] [facility] [address] [id number] [place] [address]- 6736 08 Jul, 2012 [facility] [address] [id number] [place] [address]- 4793 08 Jul, 2012 [facility] [place] [facility] [address] [id number] [place] [address]- 1512 Jul, 2012 [facility] [address] [id number] [place] [address]- 9985 Jul, 2012 [facility] [place] [facility] [address] [id number] [place] [address]- 6346 Jul, 2012 [facility] [place] [facility] [address] [id number] [place] [address]- 5545 Jul, [facility] [place] [facility] [address] [id number] [place] [address]- 4482 Jul, [facility] [place] [facility] [address] [id number] [place] [address]- 9711 Jul, [facility] [place] [facility] [address] [id number] [place] [address]- 5310 Jul, [facility] [place] [facility] [address] [id number] [place] [address]- 5452 Jul, [facility] [place] [facility] [address] [facility] [id number] [place] [address]- 9882 Jul, [facility] [place] [facility] [address] [id number] [place] [address]- 1243 Jun, [facility] [place] [facility] [address] [id number] [place] [address] Jun, 2012 [facility] [place] [facility] [address] [id number] [place] [address]- 7147 Jun, 2012 [facility] [place] [facility] [address] [id number] [place] [address]- 8565 Jun, 2012 [facility] [place] [facility] [address] [id number] [place] [address]- 9767 16 Jun, 2013 [facility] [place] [facility] [address] [id number] [place] [address]- 6002 16 Jun, 2013 [facility] [place] [facility] [address] [id number] [place] [address]- 5175 Jun, [facility] [place] [facility] [address] [id number] [place] [address]- 5956 Jun, [facility] [place] [facility] [address] [id number] [place] [address]- 4045 Jun, [facility] [place] [facility] [address] [id number] [place] [address] 1956 Jun, [facility] [place] [facility] [address] [id number] [place] [address]- 0195 Jun, [facility] [place] [facility] [address] [id number] [place] [address]- 7226 26 May, 2012 [facility] [place] [facility] [address] [id number] [address] 2197 25 May, 2012 [facility] [place] [facility] [address] [id number] [place] [address]- 2749 19 May, 2012 [facility] [place] [facility] [address] [id number], [place] [address]- 2894 17 May, 2012 [facility] [place] [facility] [address] [id number] [address]- 8213 11 May, 2012 [facility] [place] [facility] [address] [id number][place] [address]- 9770 10 May, 2012 [facility] [place] [facility] [address] [id number] [place] [address]- 1312 09 May, 2013 [facility] [place] [facility] [address] [id number] [address]- 0333 05 May, 2012 [facility] [place] [facility] [address] [id number], [place] [address]- 4042 30 Apr, 2013 [facility] [place] [facility] [address] [id number] [address] 1393 Apr, [facility] [place] [facility] [address] [id number] [place] [address]- 8683 Apr, [facility] [place] [facility] [address] [id number] [place] [address]- 5937 Apr, [facility] [place] [facility] [address] [id number] [place] [address]- 9939 Apr, [facility] [place] [facility] [address] [id number] [place] [address]- 0901 Mar, [facility] [place] [facility] [address] [id number] [place] [address]- 8767 Mar, [facility] [place] [facility] [address] [id number] [place] [address]- 0429 Mar, [facility] [place] [facility] [address] [id number] [place] [address]- 1178 Mar, [facility] [place] [facility] [address] [id number] [place] [address]- 0802 Mar, [facility] [place] [facility] [address] [id number] [place] [address]- 0444 Mar, [facility] [place] [facility] [address] [id number] [place] [address]- 1603 Mar, [facility] [place] [facility] [address] [id number] [place] [address]- 0265 Mar, [facility] [place] [facility] [address] [id number] [place] [address]- 8262 Feb, [facility] [place] [facility] [address] [id number] [place] [address]- 0008 Feb, [facility] [place] [facility] [address] [id number] [place] [address]- 6934 January, [facility] [place] [facility] [address] [id number] [place] [address]- 9448 January, [facility] [place] [facility] [address] [id number] [place] [address]- 0038 10 Dec, 2012 [facility] [place] [facility] [address] [id number] [place] [address]- 1431 09 Dec, 2012 [facility] [place] [facility] [address] [id number] [place] [address]- 4625 23 Nov, 2012 [facility] [place] [facility] [address] [id number] [place] [address]- 1196 Nov, [facility] [place] [facility] [address] [id number] [place] [address]- 1732 Nov, [facility] [place] [facility] [address] [id number] [place] [address]- 2305 Nov, [facility] [place] [facility] [address] [facility] [id number] [place] [address]- 3195 27 Oct, 2012 [facility] [place] [facility] [address] [id number] [place] [address]- 4597 26 Oct, 2012 [facility] [place] [facility] [address] [id number] [place] [address]- 2543 Oct, [facility] [place] [facility] [address] [facility] [id number] [place] [address]- 5009 26 Oct, 2012 [facility] [place] [facility] [address] [facility] [id number] [place] [address]- 5259 16 Oct, 2012 [facility] [place] [facility] [address] [id number] [address]- 3933 14 Oct, 2012 [facility] [place] [facility] [address] [id number] [place] [address]- 9487 08 Oct, 2012 [facility] [place] [facility] [address] [id number] [place] [address]- 3881 07 Oct, 2012 [facility] [place] [facility] [address] [facility] [id number] [place] 03 Oct, 2012 [facility] [place] [facility] [address] [facility] [id number] [address]- 9249 30 Sep, 2012 [facility] [address] [id number] [place] [address]- 3887 29 Sep, 2012 [facility] [address] [id number] [place] [address]- 8763 Sep, [facility] [address] [facility] [id number] [place] [address]- 5463 Sep, [facility] [address] [id number] [place] [address]- 0402 17 Sep, 2012 [facility] [address] [id number] [place] [address]- 6933 Sep, [facility] [address] [id number] [place] [address]- 3999 Sep, [facility] [address] [id number] [place] [address]- 1270 Sep, [facility] [address] [id number] [place] [address]- 3737 31 Aug, 2012 [facility] [address] [id number] [place] [address]- 3071 31 Aug, 2012 [facility] [address] [facility] [id number] [place] [address]- 6064 Aug, [facility] [address] [id number] [place] [address]- 1767 Aug, [facility] [address] [id number] [place] [address]- 9715 Aug, [facility] [address] [id number] [place] [address]- 0483 Aug, [facility] [address] [facility] [id number] [place] [address]- 2922 18 Aug, 2012 [facility] [address] [facility] [id number] [place] [address]- 8764 18 Aug, 2012 [facility] [place] [facility] [address] [id number] [place] [address]- 2004 Jul, [facility] [place] [facility] [address] [id number] [place] [address]- 0557 Jul, [facility] [place] [facility] [address] [id number] [place] [address]- 9858 Jul, [facility] [place] [facility] [address] [id number] [place] [address]- 8276 Jul, [facility] [place] [facility] [address] [id number] [place] [address]- 1941 Jul, [facility] [place] [facility] [address] [id number] [place] [address]- 2256 Jul, [facility] [place] [facility] [address] [id number] [place] [address]- 4920 Jun, [facility] [place] [facility] [address] [id number] [place] [address]- 2882 Jun, [facility] [place] [facility] [address] [id number] [place] [address]- 5024 Jun, [facility] [place] [facility] [address] [id number] [place] [address]- 0802 Jun, [facility] [place] [facility] [address] [id number] [place] [address]- 6568 Jun, [facility] [place] [facility] [address] [id number] [place] [address]- 0487 Jun, [facility] [place] [facility] [address] [id number] [place] [address]- 5394 Jun, [facility] [place] [facility] [address] [id number] [place] [address]- 6303 Jun, [facility] [place] [facility] [address] [id number] [place] [address]- 9901 Jun, [facility] [place] [facility] [address] [id number] [place] [address]- 0960 May, [facility] [place] [facility] [address] [id number] [place] [address]- 0093 24 May, 2012 [facility] [place] [facility] [address] [id number] [place] [address]- 7972 May, [facility] [place] [facility] [address] [id number] [place] [address]- 6525 Apr, [facility] [place] [facility] [address] [id number] [place] [address]- 0772 Apr, [facility] [place] [facility] [address] [id number] [place] [address]- 8412 Apr, [facility] [place] [facility] [address] [id number] [place] [address]- 9553 Apr, [facility] [place] [facility] [address] [id number] [place] [address]- 6632 Apr, [facility] [place] [facility] [address] [id number] [place] [address]- 2285 Apr, [facility] [place] [facility] [address] [id number] [place] [address]- 0347 Mar, [facility] [place] [facility] [address] [id number] [place] [address]- 5938 Mar, [facility] [place] [facility] [address] [id number] [place] [address]- 5644 Mar, [facility] [place] [facility] [address] [id number] [place] [address]- 4058 Mar, [facility] [place] [facility] [address] [id number] [place] [address]- 3594 Feb, [facility] [place] [facility] [address] [id number] [place] [address]- 5406 Feb, [facility] [place] [facility] [address] [id number] [place] [address]- 7670 Feb, [facility] [place] [facility] [address] [id number] [place] [address]- 1968 Feb, [facility] [address] [id number] [place] [address]- 7345 Feb, [facility] [place] [facility] [address] [id number] [place] [address]- 3290 January, [facility] [address] [id number] [place] [address]- 5827 January, [facility] [place] [facility] [address] [id number] [place] [address]- 7898 January, [facility] [address] [id number] [place] [address]- 2819 January, [facility] [place] [facility] [address] [id number] [place] [address]- 4186 January, [facility] [address] [id number] [place] [address]- 0814 January, [facility] [address] [id number] [place] [address]- 9982 Dec, [facility] [place] [facility] [address] [id number] [place] [address]- 1956 Dec, [facility] [address] [id number] [place] [address]- 5507 Dec, [facility] [place] [facility] [address] [id number] [place] [address]- 1932 Dec, [facility] [place] [facility] [address] [id number] [place] [address]- 2330 Dec, [facility] [place] [facility] [address] [id number] [place] [address]- 2281 Nov, [facility] [place] [facility] [address] [id number] [place] [address]- 4435 Nov, [facility] [place] [facility] [address] [id number] [place] [address]- 7129 Nov, [facility] [place] [facility] [address] [id number] [place] [address]- 9383 Nov, [facility] [place] [facility] [address] [id number] [place] [address]- 4486 29 Oct, 2011 [facility] [place] [facility] [address] [id number] [place] [address]- 3390 Oct, [facility] [place] [facility] [address] [id number] [place] [address]- 4526 24 Oct, 2011 [facility] [place] [facility] [address] [id number] [place] [address]- 5667 Oct, [facility] [place] [facility] [address] [id number] [place] [address]- 5176 Oct, [facility] [place] [facility] [address] [id number] [place] [address]- 5748 Sep, [facility] [place] [facility] [address] [id number] [place] [address]- 4261 Sep, [facility] [place] [facility] [address] [id number] [place] [address]- 8613 Sep, [facility] [place] [facility] [address] [id number] [place] [address]- 9882 Sep, [facility] [place] [facility] [address] [id number] [place] [address]- 0234 Sep, [facility] [place] [facility] [address] [id number] [place] [address]- 3013 Sep, [facility] [place] [facility] [address] [id number] [place] [address]- 7693 Aug, [facility] [place] [facility] [address] [id number] [place] [address]- 4476 Aug, [facility] [place] [facility] [address] [id number] [place] [address]- 2281 Aug, [facility] [place] [facility] [address] [id number] [place] [address]- 5109 Jul, [facility] [place] [facility] [address] [id number] [place] [address]- 3016 Jul, [facility] [place] [facility] [address] [id number] [place] [address]- 6022 Jul, [facility] [place] [facility] [address] [id number] [place] [address]- 8474 Jul, [facility] [place] [facility] [address] [id number] [place] [address]- 2621 Jun, [facility] [place] [facility] [address] [id number] [place] 9875 Jun, [facility] [place] [facility] [address] [id number] [place] [address]- 6181 Jun, [facility] [place] [facility] [address] [id number] [place] [address]- 6760 Jun, [facility] [place] [facility] [address] [id number] [place] [address]- 2515 Jun, [facility] [place] [facility] [address] [id number] [place] [address]- 6606 Jun, [facility] [place] [facility] [address] [id number] [place] [address]- 6723 Mar, [facility] [place] [facility] [address] [id number] [place] [address]- 5115 Dec, [facility] [place] [facility] [address] [id number] [place] [address]- 3537 Dec, [facility] [place] [facility] [address] [id number] [place] [address]- 3349 Nov, [facility] [place] [facility] [address] [id number] [place] [address]- 9798 16 Nov, 2010 [facility] [place] [facility] [address] [id number] [place] [address]- 2660 Sep, [facility] [place] [facility] [address] [id number] [place] [address] 2546 31 Aug, 2010 [facility] [place] [facility] [address] [id number] [place] [address] 2546 29 Aug, 2010 [facility] [place] [facility] [address] [id number] [place] [address] 2546 29 Aug, 2010 [facility] [place] [facility] [address] [id number] [place] [address] 2546 29 Aug, 2010 [facility] [place] [facility] [address] [id number] [place] [address] 2546 27 Aug, 2010 [facility] [place] [facility] [address] [id number] [place] [address]46 14 Aug, 2010 [facility] [address] [id number] [place] [address] 2546 08 Aug, 2010 [facility] [place] [facility] [address] [id number] [place] [address] 2546 08 Aug, 2010 [facility] [place] [facility] [address] [id number] [place] [address] 25[address] 07 Aug, 2010 [facility] [place] [facility] [address] [id number] [place] [address] 2546 06 Aug, 2010 [facility] [place] [facility] [address] [id number] [place] [address] 2546 06 Aug, 2010 [facility] [place] [facility] [address] [id number] [place] [address] 2546 Aug, [facility] [place] [facility] [address] [id number] [place] [address] 2546 30 Jul, 2010 [facility] [place] [facility] [address] [id number] [place] [address] 2546 30 Jul, 2010 [facility] [place] [facility] [address] [id number] [place] [address] 2546 30 Jul, 2010 [facility] [place] [facility] [address] [id number] [place] [address] Jul, [facility] [place] [facility] [address] [id number] [place] [address] 08 Jul, 2010 [facility] [place] [facility] [address] [id number] [place] [address] Jul, [facility] [place] [facility] [address] [id number] [place] [address] 24 Jun, 2010 [facility] [place] [facility] [address] [id number] [place] [address] Jun, [facility] [place] [facility] [address] [id number] [place] [address] Jun, [facility] [place] [facility] [address] [id number] [place] [address] Jun, [facility] [place] [facility] [address] [id number] [place] [address] Apr, [facility] [place] [facility] [address] [id number] [address] Mar, [facility] [place] [facility] [address] [id number], [place] [address] Feb, [facility] [place] [facility] [address] [id number], [place] [address] January, [facility] [place] [facility] [address] [id number] [address] 15 Dec, 2009 [facility] [place] [facility] [address] [id number] [address] Nov, [facility] [place] [facility] [address] [id number] [place] [address] Aug, [facility] [place] [facility] [address] [id number] [address] Aug, [facility] [place] [facility] [address] [id number] [address] 2546 Aug, [facility] [place] [facility] [id number] [address] Jul, [facility] [id number] [address] Jul, [facility] [id number], [place] [address] Jul, [facility] [id number], [place] [address] Jun, [facility] [id number] [address] Jun, [facility] [id number] [place] [address] Jun, [facility] [address] [id number], [place] [address] Jun, [facility] [id number] [place] [address] Jun, [facility] [id number], [place] [address] Jun, [facility] [id number] [address] Apr, [facility] [id number] [address] Apr, [facility] [id number] [address] Feb, [facility] [id number] [address] January, [facility] [id number], [place] [address] Dec, IMMUNIZATIONS No Known Immunizations SOCIAL HISTORY Never Assessed REASON FOR VISIT DM/Pain management (chronic)- Sina KENT PLAN OF CARE Activity Details Follow Up 6 Months Reason:pain mgmt and DM VITAL SIGNS Height 67 in 2017-05-17 Weight 365.7 lbs 2017-05-17 Temperature 97.8 degrees Fahrenheit 2017-05-17 Heart Rate 82 bpm 2017-05-17 Respiratory Rate 20 2017-05-17 BMI 57.27 kg/m2 2017-05-17 Blood pressure systolic 178 mmHg 2017-05-17 Blood pressure diastolic 80 mmHg 2017-05-17 MEDICATIONS Medication Instructions Dosage Frequency Start Date End Date Duration Status Zofran 4 MG Orally 3 times a day prn nausea and vomiting 1 tablet 5 Active Naproxen 500 MG Orally 2 times a day 1 tablet as needed 12h Active Percocet 10-325 MG Orally 4 times a day 1 tablet as needed 6h 14 Apr, 2017 28 days Active Allopurinol 300 MG Orally Once a day 1 tablet 24h Mar, 90 days Active Trintellix 20 MG Orally Once a day 1 tablet 24h 30 days Active Potassium Chloride Kathi ER 20 MEQ Orally Once a day 2 tablets 24h Active Clopidogrel Bisulfate 75 MG Orally Once a day 1 tablet 24h Active Victoza 18 MG/3ML INJECT 1.8MG SUBCUTANEOUSLY ONCE DAILY 30 Active Losartan Potassium 100 MG Orally Once a day 1 tablet 24h Active Imbruvica 140 MG Orally Once a day 3 capsules in the evening 24h Oct, Active Symbicort 80-4.5 MCG/ACT Inhalation Twice a day 2 puffs 12h 30 Active Aspirin 81 mg 1 tablet by Oral route 1 time per day Apr, Active Valium 5 MG Orally three times a day 1 tablet as needed 8h Oct, 30 days Active Flomax 0.4 mg Orally Once a day 1 capsule 30 minutes after the same meal each day 24h 24 Aug, 2015 90 Active Metoprolol Succinate ER 50 mg Orally twice a day 1 tablet 12h 90 Active Zetia 10 MG Orally Once a day 1 tablet 24h Active Ventolin HFA 108 (90 Base) MCG/ACT Inhalation every 4 hrs 2 puffs as needed 4h Dec, 30 days Active Fluticasone Propionate 50 MCG/ACT Nasally Once a day 1 spray in each nostril 24h 30 days Active Voltaren 1 % Transdermal every 4-6 hours as needed 4grams to knee and hip Mar, Active Lantus 100 UNIT/ML Subcutaneous 2 times a day inject 100 units 12h Active Seroquel 100 MG Orally Once a day 1 tablet 24h Jul, 30 days Active Nexium 40 MG Orally Once a day 1 capsule 24h Active Ambien 10 mg Orally Once a day 1 tablet at bedtime 24h Nov, 30 days Active Clonidine HCl 0.1 MG Orally 2 times a day 1 tablet 12h 90 Active Abilify 30 MG Orally Once a day 1 tablet 24h 30 days Active Atorvastatin Calcium 20 MG Orally Once a day 1 tablet at bedtime 24h Active NovoLog Flexpen 100 UNIT/ML INJECT 30 UNITS SUBCUTANEOUSLY WITH BREAKFAST, 30 UNITS WITH LUNCH AND 40 UNITS WITH EVENING MEAL 30 Active Furosemide 40 mg Orally twice a day 1 tablet 12h Mar, 05 days Active Vitamin D3 1,000 unit 2 capsule by Oral route 1 time per day Apr, Active Incruse Ellipta 62.5 MCG/INH Inhalation Once a day 1 puff 24h Active Gabapentin 300 MG Orally 3 times a day 2 capsules 8h Mar, Active RESULTS Name Result Date Reference Range A1C (IN HOUSE) 2017-05-17 A1C IN HOUSE 6.1 4.3 - 5.6 % Previous A1c 6.4 Lot [id number] Exp date 01/2019 MICROALBUMIN, URINE (IN HOUSE) 2017-05-17 MICROALBUMIN normal Lot # [id number] Exp date 03/2018 Clarity clear Color yellow ALB 10mg/L CRE 50mg/dL A:C (IN HOUSE) <30 mg/g Control Control Lot # Exp date PROCEDURES Procedure Date Ordered Result Body Site No Charge May 17, 2017 GLYCATED HEMOGLOBIN TEST May 17, 2017 VENIPUNCT, ROUTINE* May 17, 2017 LAB NOT BILLED BY [facility] May 17, 2017 MICROALBUMIN, SEMIQUANT May 17, 2017 [facility] VISIT ESTABLISHED PATIENT May 17, 2017 INSTRUCTIONS MEDICATIONS ADMINISTERED No Known Medications [...] History EGD ([facility]) 2009 Surgical History colonoscopy 2010 ([facility]), 2013 ([facility]) Surgical History heart cath: [...] History inability to urinate 09/16/15 Hospitalization History [facility] early Hospitalization History hyperkalemia 10/2017 Hospitalization History fluid in lung
--- OUTSIDE RECORDS SUMMARY | 2018-08-08 12:53 | XMS REPORT ---
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 Name Role Phone ROSELINE LUIS Unavailable PROBLEMS Type Condition ICD9-CM Code LFZ12-FN Code Onset Dates Condition Status SNOMED Code Problem Chronic lymphocytic leukemia C91.10 Active 51805022 Problem Insomnia, unspecified type G47.00 Active 815241342 Problem Lymphocytosis D72.820 Active 41712512 Problem Anxiety F41.9 Active 69251332 Problem Eye exam abnormal R93.8 Active 673848963 Problem Morbid obesity E66.01 Active 136783156 Problem Diabetic polyneuropathy associated with type 2 diabetes mellitus E11.42 Active 29400097 Problem Essential hypertension I10 Active 28638423 Problem Falling R29.6 Active 834833146 Problem 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 Active 647604335 Problem Cough R05 Active 03088688 Problem Dysuria R30.0 Active 57433281 Problem Eustachian tube dysfunction, unspecified laterality H69.80 Active 33584702 Problem Bilateral primary osteoarthritis of knee M17.0 Active 779306540 Problem Polyneuropathy associated with underlying disease G63 Active 432956420 Problem Anemia of chronic illness D63.8 Active 673586472 Problem Retinal edema H35.81 Active 0006545 Problem DM neuro manif type II E11.49 Active 44808542 Problem Diabetes E11.9 Active 21597633 Problem Hypokalemia E87.6 Active 03816477 Problem Benign prostatic hyperplasia with lower urinary tract symptoms, unspecified morphology N40.1 Active 881570990 Problem Reactive airway disease J45.909 Active 122216038064 Problem Bipolar I disorder, most recent episode (or current) mixed, moderate F31.62 Active 83402103 Problem Chronic pain G89.29 Active 89444210 Problem Leukocytosis D72.829 Active 530601129 ALLERGIES No Information ENCOUNTERS Encounter Location Date Diagnosis [facility] [id number] [address] Mar, [facility] [id number] [place] [address] 05340- 2756 Mar, [facility] [address] [address] Feb, [facility] [id number] [place] [address] 69495- 2861 January, [facility] [id number] [place] [address] 15868- 4581 January, Chronic pain G89.29 [facility] [id number] [place] [address] 22859- 1025 January, Bipolar I disorder, most recent episode (or current) mixed, moderate F31.62 [facility] [id number] [place] [address] 39221- 6203 January, Bipolar I disorder, most recent episode (or current) mixed, moderate F31.62 [facility] [address] [address] Dec, Bipolar I disorder, most recent episode (or current) mixed, moderate F31.62 and BMI 50.0-59.9, adult Z68.43 [facility] [id number] [place] [address] 27820- 2125 Dec, Bipolar I disorder, most recent episode (or current) mixed, moderate F31.62 [facility] [id number] [place] [address] 32878- 4980 Dec, Chronic pain G89.29 [facility] [id number] [place] [address] 20562- 0602 18 Dec, 2017 DM neuro manif type II E11.49 ; Right flank pain R10.9 ; 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 ; Encounter for medication monitoring Z51.81 and BMI 50.0-59.9, adult Z68.43 [facility] [address] [address] 0770 Dec, Bipolar I disorder, most recent episode (or current) mixed, moderate F31.62 [facility] [id number] [place] [address] 48066- 0396 Nov, Bipolar I disorder, most recent episode (or current) mixed, moderate F31.62 [facility] [id number] [place] [address] 27711- 0066 Nov, Chronic pain G89.29 [facility] [id number] [place] [address] 43068- 0546 Nov, Bipolar I disorder, most recent episode (or current) mixed, moderate F31.62 [facility] [id number] [place] [address] 27442- 1494 Nov, Hypokalemia E87.6 [facility] [id number] [place] [address] 67963- 2428 Nov, Bipolar I disorder, most recent episode (or current) mixed, moderate F31.62 [facility] [id number] [place] [address] 33237- 2138 Oct, Chronic pain G89.29 [facility] [id number] [place] [address] 95753- 0261 Oct, BMI 50.0-59.9, adult Z68.43 and Bipolar I disorder, most recent episode (or current) mixed, moderate F31.62 [facility] [address] [address]- 0812 Oct, Bipolar I disorder, most recent episode (or current) mixed, moderate F31.62 [facility] [id number] [place] [address] 74629- 3994 Oct, [facility] [id number] [place] [address] 55667- 9566 Oct, Hypokalemia E87.6 [facility] [address] [place] [address] 37327- 1374 Oct, DM neuro manif type II E11.49 [facility] [id number] [place] [address] 95734- 5425 Oct, Bipolar I disorder, most recent episode (or current) mixed, moderate F31.62 [facility] [address] 53634- 5692 Oct, Bipolar I disorder, most recent episode (or current) mixed, moderate F31.62 [facility] [address] 250494- 1795 14 Oct, 2017 Hyperkalemia E87.5 ; Falling R29.6 ; BMI 50.0-59.9, adult Z68.43 and Acute left ankle pain M25.572 [facility] [address] 46056- 6659 Oct, DM neuro manif type II E11.49 [facility] [id number] [place] [address] 41329- 3917 Oct, [facility] [id number] [place] [address] 51029- 8419 Sep, Chronic pain G89.29 [facility] [id number] [place] [address] 45406- 3101 Sep, [facility] [address] 68983- 5792 Sep, Bilateral primary osteoarthritis of knee M17.0 [facility] [address] 38926- 2465 Sep, Generalized edema R60.1 [facility] [id number] [place] [address] 29879- 8541 Sep, Bipolar I disorder, most recent episode (or current) mixed, moderate F31.62 [facility] [id number] [place] [address] 45398- 2835 15 Sep, 2017 Hypoxia R09.02 ; Other hypervolemia E87.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 ; Anemia of chronic illness D63.8 and BMI 50.0- 59.9, adult Z68.[address] 61894- 4756 Sep, [facility] [address] 59239- 8303 Sep, Bipolar I disorder, most recent episode (or current) mixed, moderate F31.62 [facility] [id number] [place] [address] 33474- 5163 Aug, Chronic pain G89.29 [facility] [id number] [place] [address] 74913- 7448 Aug, Generalized edema R60.1 [facility] [id number] [place] [address] 15447- 5768 Aug, [facility] [id number] [place] [address] 32124- 8574 Aug, [facility] [id number] [place] [address] 67596- 5355 14 Aug, 2017 Bipolar I disorder, most recent episode (or current) mixed, moderate F31.62 [facility] [id number] [place] [address] 98911- 8906 Aug, Bipolar I disorder, most recent episode (or current) mixed, moderate F31.62 [facility] [id number] [place] [address] 51143- 5671 Aug, Chronic pain G89.29 [facility] [id number] [place] [address] 79508- 1694 Jul, Bipolar I disorder, most recent episode (or current) mixed, moderate F31.62 [facility] [address] [address]- 8247 Jul, Bipolar I disorder, most recent episode (or current) mixed, moderate F31.62 and BMI 60.0-69.9, adult Z68.44 [facility] [address] [place] [address] 15208- 8646 Jul, Bipolar I disorder, most recent episode (or current) mixed, moderate F31.62 [facility] [id number] [place] [address] 14797- 0225 Jul, Chronic pain G89.29 [facility] [id number] [place] [address] 76201- 4749 Jul, Bipolar I disorder, most recent episode (or current) mixed, moderate F31.62 [facility] [id number] [place] [address] 28179- 0800 Jun, Polyneuropathy associated with underlying disease G63 and Diabetes E11.9 [facility] [id number] [place] [address] 19879- 7211 Jun, Bipolar I disorder, most recent episode (or current) mixed, moderate F31.62 [facility] [address] [address]- 9239 Jun, Chronic pain G89.29 [facility] [id number] [place] [address] 29500- 2186 May, Bipolar I disorder, most recent episode (or current) mixed, moderate F31.62 [facility] [address] [address]- 4136 May, Bipolar I disorder, most recent episode (or current) mixed, moderate F31.62 [facility] [address] [address]- 4592 20 May, 2017 Diabetic polyneuropathy associated with type 2 diabetes mellitus E11.42 [facility] [id number] [place] [address] 67172- 3577 18 May, 2017 Bipolar I disorder, most recent episode (or current) mixed, moderate F31.62 [facility] [id number] [place] [address] 56299- 6981 13 May, 2017 Bipolar I disorder, most recent episode (or current) mixed, moderate F31.62 [facility] [id number] [place] [address] 28709- 0017 12 May, 2017 Chronic pain G89.29 [facility] [id number] [place] [address] 49888- 5211 30 Apr, 2017 Bipolar I disorder, most recent episode (or current) mixed, moderate F31.62 [facility] [id number] [place] [address] 01953- 9153 Apr, [facility] [id number] [place] [address] 51094- 1747 Apr, Chronic pain G89.29 and DM neuro manif type II E11.49 [facility] [id number] [place] [address] 61123- 4488 Apr, [facility] [id number] [place] [address] 69687- 2767 Apr, Bipolar I disorder, most recent episode (or current) mixed, moderate F31.62 [facility] [id number] [place] [address] 87802- 1690 Apr, Chronic pain G89.29 [facility] [id number] [place] [address] 93697- 6322 Apr, Iliotibial band syndrome, left M76.32 [facility] [id number] [place] [address] 01775- 9176 Apr, Bipolar I disorder, most recent episode (or current) mixed, moderate F31.62 [facility] [id number] [place] [address] 49782- 5416 Mar, Bipolar I disorder, most recent episode (or current) mixed, moderate F31.62 [facility] [id number] [place] [address] 46138- 1529 Mar, Bipolar I disorder, most recent episode (or current) mixed, moderate F31.62 [facility] [id number] [place] [address] 10885- 8331 Mar, [facility] [id number] [place] [address] 49778- 0386 Mar, Bipolar I disorder, most recent episode (or current) mixed, moderate F31.62 [facility] [id number] [place] [address] 00582- 2617 Mar, Chronic pain G89.29 [facility] [id number] [place] [address] 42441- 6036 Mar, Bipolar I disorder, most recent episode (or current) mixed, moderate F31.62 [facility] [id number] [place] [address] 22246- 7811 Mar, Bipolar I disorder, most recent episode (or current) mixed, moderate F31.62 [facility] [id number] [place] [address] 18485- 4607 Mar, Acute pain of left knee M25.562 ; Left hip pain M25.552 ; Generalized edema R60.1 and Tongue swelling R22.0 [facility] [address] [place] [address] 65410- 8908 Mar, [facility] [id number] [place] [address] 55543- 1895 Feb, Chronic pain G89.29 [facility] [id number] [place] [address] 55097- 4681 Feb, Diabetes E11.9 [facility] [id number] [place] [address] 43643- 7681 January, Chronic pain G89.29 [facility] [address] [address]- 6113 January, [facility] [id number] [place] [address] 04843- 9032 January, Bipolar I disorder, most recent episode (or current) mixed, moderate F31.62 [facility] [id number] [place] [address] 49184- 5777 Dec, Bipolar I disorder, most recent episode (or current) mixed, moderate F31.62 [facility] [id number] [place] [address] 21213- 2642 Dec, Chronic pain G89.29 [facility] [id number] [place] [address] 31656- 4071 Dec, Bipolar I disorder, most recent episode (or current) mixed, moderate F31.62 [facility] [id number] [place] [address] 40525- 4382 Dec, Diabetes E11.9 ; Essential hypertension I10 ; Chronic pain G89.29 and Morbid obesity E66.01 [facility] [id number] [place] [address] 19858- 0008 Dec, [facility] [id number] [place] [address] 93789- 1815 Dec, Bipolar I disorder, most recent episode (or current) mixed, moderate F31.62 [facility] [id number] [place] [address] 29852- 6828 Dec, Bipolar I disorder, most recent episode (or current) mixed, moderate F31.62 [facility] [id number] [place] [address] 98899- 9372 Nov, Chronic pain G89.29 [facility] [id number] [place] [address] 53937- 0704 Nov, Bipolar I disorder, most recent episode (or current) mixed, moderate F31.62 [facility] [address] [address]- 9125 Nov, [facility] [id number] [place] [address] 87279- 4332 Nov, Bipolar I disorder, most recent episode (or current) mixed, moderate F31.62 [facility] [address] [address]- 0203 Nov, Bipolar I disorder, most recent episode (or current) mixed, moderate F31.62 [facility] [address] [address]- 5567 Nov, [facility] [id number] [place] [address] 37937- 8336 Nov, [facility] [id number] [place] [address] 02786- 5470 Nov, [facility] [id number] [place] [address] 70872- 2299 Oct, Chronic pain G89.29 [facility] [id number] [place] [address] 92729- 2545 Oct, Bipolar I disorder, most recent episode (or current) mixed, moderate F31.62 [facility] [address] [address]- 1353 Oct, [facility] [id number] [place] [address] 03486- 5418 Oct, Chronic pain G89.29 ; Diabetes E11.9 ; Anxiety F41.9 and 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 [facility] [id number] [place] [address] 17020- 2449 10 Oct, 2016 [facility] [address] [address]- 0995 06 Oct, 2016 Diabetes E11.9 [facility] [id number] [place] [address] 50122- 7519 Oct, Bipolar I disorder, most recent episode (or current) mixed, moderate F31.62 [facility] [id number] [place] [address] 77755- 7212 Sep, Chronic pain G89.29 [facility] [id number] [place] [address] 70564- 9169 Sep, Chronic pain G89.29 [facility] [id number] [place] [address] 08806- 2466 Aug, Chronic pain G89.29 [facility] [id number] [place] [address] 38928- 8576 Jul, [facility] [id number] [place] [address] 40707- 9595 Jul, Diabetes E11.9 [facility] [id number] [place] [address] 67654- 4177 Jul, Chronic pain G89.29 [facility] [id number] [place] [address] 99030- 3041 Jul, Bipolar I disorder, most recent episode (or current) mixed, moderate F31.62 [facility] [id number] [place] [address] 42460- 9093 Jun, Bipolar I disorder, most recent episode (or current) mixed, moderate F31.62 [facility] [id number] [place] [address] 24584- 4727 Jun, [facility] [id number] [place] [address] 41748- 8628 Jun, Bipolar I disorder, most recent episode (or current) mixed, moderate F31.62 [facility] [id number] [place] [address] 35701- 2549 May, Insomnia, unspecified type G47.00 [facility] [id number] [place] [address] 36424- 7198 May, Bipolar I disorder, most recent episode (or current) mixed, moderate F31.62 [facility] [id number] [place] [address] 34482- 7044 14 May, 2016 [facility] [id number] [place] [address] 65058- 1438 May, Bipolar I disorder, most recent episode (or current) mixed, moderate F31.62 [facility] [id number] [place] [address] 93989- 5148 May, Diabetes E11.9 and Essential hypertension I10 [facility] [id number] [place] [address] 17654- 7795 Apr, Chronic pain G89.29 [facility] [id number] [place] [address] 89968- 3748 Apr, Bipolar I disorder, most recent episode (or current) mixed, moderate F31.62 [facility] [id number] [place] [address] 46294- 7319 Apr, [facility] [id number] [place] [address] 58229- 4406 Apr, [facility] [id number] [place] [address] 63144- 3654 Mar, Chronic pain G89.29 ; Headache, unspecified headache type R51 ; Neuropathy G62.9 ; Pain of right hip joint M25.551 and Essential hypertension I10 [facility] [address] [place] [address] 84008- 9405 Mar, Chronic pain G89.29 [facility] [id number] [place] [address] 02181- 9764 Mar, Bipolar I disorder, most recent episode (or current) mixed, moderate F31.62 [facility] [address] [place] [address] 96659- 5236 Feb, Bipolar I disorder, most recent episode (or current) mixed, moderate F31.62 and Insomnia, unspecified type G47.00 [facility] [id number] [place] [address] 33991- 1707 Feb, Chronic pain G89.29 [facility] [id number] [place] [address] 70043- 9970 Feb, Bipolar I disorder, most recent episode (or current) mixed, moderate F31.62 [facility] [address] 18606- 2368 January, Bipolar I disorder, most recent episode (or current) mixed, moderate F31.62 [facility] [address] 232265- 1501 January, Chronic pain G89.29 [facility] [address] 65217- 8326 January, Chronic pain G89.29 and Essential hypertension I10 [facility] [id number] [place] [address] 23512- 2579 January, Bipolar I disorder, most recent episode (or current) mixed, moderate F31.62 [facility] [id number] [place] [address] 03044- 9808 Dec, [facility] [id number] [place] [address] 62972- 0774 Dec, [facility] [id number] [place] [address] 12342- 1343 Dec, [facility] [id number] [place] [address] 76629- 0725 Dec, [facility] [address] 11658- 5465 Nov, Reactive airway disease J45.909 [facility] [id number] [place] [address] 99539- 2976 Nov, [facility] [id number] [place] [address]- 2546 Nov, [facility] [id number] [place] [address] 87768- 7320 Nov, [facility] [id number] [place] [address] 80442- 3307 Nov, [facility] [id number] [place] [address] 52777- 2579 Nov, Onychomycosis B35.1 ; Hammertoe M20.40 ; Kula or callus L84 and DM neuro manif type II E11.49 [facility] [id number] [place] [address] 84761- 5636 Nov, Chronic pain G89.29 ; Leukocytosis D72.829 and Diabetes E11.9 [facility] [id number] [place] [address] 19939- 0825 Nov, [facility] [id number] [place] [address] 35429- 4544 Oct, Bronchitis J40 [facility] [id number] [place] [address] 92641- 4497 Oct, [facility] [id number] [place] [address] 99063- 6740 Oct, [facility] [id number] [place] [address] 93435- 4218 Oct, Mastoiditis, unspecified laterality H70.90 and Type 2 diabetes mellitus with complication E11.8 [facility] [id number] [place] [address] 95568- 2189 Sep, [facility] [place] [address] [phone] Sep, Dysuria R30.0 ; Cough R05 ; Benign prostatic hyperplasia with lower urinary tract symptoms, unspecified morphology N40.1 ; Hypokalemia E87.6 and Eustachian tube dysfunction, unspecified laterality H69.80 [place] [id number] [place] [address] [phone]- 7080 Sep, Moderate mixed bipolar I disorder F31.62 [facility] [id number] [place] [address] [phone]- [phone] Sep, Hypokalemia E87.6 [facility] [id number] [place] [address] [phone]- [phone] Sep, [facility] [id number] [place] [address] [phone]- [phone] Sep, Upper respiratory tract infection, unspecified type J06.9 [facility] [id number] [place] [address] [phone]- [phone] Aug, [facility] [id number] [place] [address] [phone]- [phone] Aug, Dysuria R30.0 [facility] [id number] [place] [address] 59143- 7251 Aug, [facility] [id number] [place] [address] 11867- 6928 Jul, [facility] [id number] [place] [address] 23788- 0857 Jul, [facility] [id number] [place] [address] 61201- 6393 Jul, [facility] [id number] [place] [address] 56281- 4024 Jul, [facility] [id number] [place] [address] 69239- 7269 Jun, [facility] [id number] [place] [address] 34586- 6185 Jun, [facility] [id number] [place] [address] 40929- 4457 14 Jun, 2015 [facility] [id number] [place] [address] 61166- 2431 May, [facility] [id number] [place] [address] 83460- 6278 May, Bipolar I disorder, most recent episode (or current) mixed, moderate 296.62 [facility] [id number] [place] [address] 31194- 2191 May, [facility] [id number] [place] [address] 02830- 2978 May, Bipolar I disorder, most recent episode (or current) mixed, moderate 296.62 and Major depressive disorder, recurrent episode, severe, specified as with psychotic behavior 296.34 [facility] [id number] [place] [address] 53855- 0427 May, Bipolar I disorder, most recent episode (or current) mixed, moderate 296.62 [facility] [id number] [place] [address] 35891- 2030 May, [facility] [id number] [place] [address] 06626- 4419 Apr, [facility] [id number] [place] [address] 65734- 8736 Apr, [facility] [id number] [place] [address] 11830- 8418 Apr, Unspecified disorder of kidney and ureter 593.9 and Diabetes mellitus type 2, uncontrolled 250.02 [facility] [id number] [place] [address] 66713- 5146 Apr, [facility] [id number] [place] [address] 51384- 2250 Apr, [facility] [id number] [place] [address] 29740- 4513 Apr, [facility] [id number] [place] [address] 95773- 8108 Apr, [facility] [id number] [place] [address] 24192- 0961 Apr, Diabetes mellitus type II, uncontrolled 250.02 [facility] [id number] [place] [address] 88816- 0334 Apr, [facility] [id number] [place] [address] 48625- 9964 Mar, [facility] [id number] [place] [address] 99269- 4146 Mar, [facility] [id number] [place] [address] 19435- 7306 Mar, [facility] [id number] [place] [address] 40819- 6419 Mar, Major depressive disorder, recurrent episode, severe, specified as with psychotic behavior 296.34 and Bipolar I disorder, most recent episode (or current) mixed, moderate 296.62 [facility] [id number] [place] [address] 42251- 6352 Mar, Diabetes 250.00 ; Anuria 788.5 ; Nausea and vomiting 787.01 and Diarrhea 787.91 [facility] [id number] [place] [address] 12823- 1625 Mar, Diabetes 250.00 [facility] [id number] [place] [address] 82195- 6617 Mar, [facility] [id number] [place] [address] 11702- 0796 Mar, Diabetes 250.00 [facility] [id number] [place] [address] 09922- 6871 Mar, [facility] [id number] [place] [address] 87370- 7651 Mar, [facility] [id number] [place] [address] 49979738- 6457 Mar, [facility] [id number] [place] [address] 51279- 6125 Mar, [place] [facility] [id number] [place] [address] 08458- 2873 Mar, Bipolar I disorder, most recent episode (or current) mixed, moderate 296.62 and Major depressive disorder, recurrent episode, severe, specified as with psychotic behavior 296.34 [facility] [id number] [place] [address] 36792- 4306 Mar, Magnesium deficiency 275.2 ; Hypokalemia 276.8 ; Nausea & vomiting 787.01 and Diabetes mellitus type 2, uncontrolled 250.02 [facility] [id number] [place] [address] 96078- 1489 Feb, [address] 64182- 6596 Feb, Bipolar I disorder, most recent episode (or current) mixed, moderate 296.[address] 64649- 4973 Feb, Nausea and vomiting 787.01 ; Left elbow pain 719.42 ; Anuria 788.5 and Diabetes 250.00 [id number] [place] [address] 49597- 8848 Feb, [id number] [place] [address] 91515- 4649 Feb, Hypopotassemia 276.8 and Hypokalemia 276.8 [place] [facility] [id number] [place] [address] 81049- 1687 Feb, Hypopotassemia 276.8 and Hypokalemia 276.8 [place] [address] 54723- 9837 Feb, Seborrheic keratoses 702.19 [id number] [place] [address] 77286- 8231 Feb, Hypopotassemia 276.8 and Low magnesium levels 275.[address] [id number] [address]- 4927 January, [facility] [id number] [place] [address] 60922- 7184 January, [facility] [id number] [place] [address] 19965- 8021 January, [facility] [id number] [place] [address] 30526- 1047 January, Scalp lesion 709.9 [facility] [id number] [place] [address] 09532- 2124 January, [facility] [id number] [place] [address] 23129- 1502 Dec, Tear of medial cartilage or meniscus of knee, current 836.0 and 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 [facility] [id number] [place] [address] 55830- 2809 Dec, [facility] [id number] [place] [address] 40638- 4896 Dec, [facility] [id number] [place] [address] 27286- 0990 Dec, Squamous cell carcinoma, 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 [facility] [address] [id number] [address]- 9168 Dec, [facility] [id number] [place] [address] 91978- 3795 Dec, [facility] [address] [address]- 4558 Nov, [facility] [id number] [place] [address] 94792- 5075 Nov, [facility] [address] [address]- 0639 Nov, [facility] [id number] [place] [address] 98205- 3765 Nov, [facility] [place] [facility] [address] [id number] [place] [address]- 7381 Nov, [facility] [place] [facility] [address] [id number] [place] [address]- 4129 Nov, [facility] [place] [facility] [address] [id number] [place] [address]- 8346 Nov, [facility] [place] [facility] [address] [id number] [place] [address]- 1260 Nov, [facility] [place] [facility] [address] [id number] [place] [address]- 3958 Nov, [facility] [place] [facility] [address] [facility] [id number] [place] [address]- 9630 Nov, [facility] [place] [facility] [address] [facility] [id number] [place] [address]- 6148 Nov, [facility] [place] [facility] [address] [facility] [id number] [place] [address]- 6724 Nov, [facility] [place] [facility] [address] [id number] [place] [address]- 1036 Oct, 2014 [facility] [place] [facility] [address] [facility] [id number] [place] [address]- 3678 Oct, 2014 [facility] [place] [facility] [address] [facility] [id number] [address]- 4933 Oct, 2014 [facility] [place] [facility] [address] [facility] [id number] [place] [address]- 2390 Oct, 2014 [facility] [place] [facility] [address] [id number] [place] [address]- 0413 Oct, 2014 [facility] [place] [facility] [address] [id number] [address]- 4346 Oct, 2014 [facility] [place] [facility] [address] [facility] [id number] [place] [address]- 9809 05 Fe2014 [facility] [place] [facility] [address] [id number] [place] [address]- 5887 Oct, [facility] [place] [facility] [address] [id number] [place] [address]- 6894 Oct, [facility] [place] [facility] [address] [id number] [place] [address]- 9165 Sep, [facility] [place] [facility] [address] [id number] [place] [address]- 8103 Sep, [facility] [place] [facility] [address] [id number] [place] [address]- 7499 Sep, [facility] [place] [facility] [address] [id number] [place] [address]- 2063 Sep, [facility] [place] [facility] [address] [id number] [place] [address]- 6235 Sep, [facility] [place] [facility] [address] [id number] [place] [address]- 8633 Sep, [facility] [place] [facility] [address] [id number] [place] [address]- 6545 Sep, [facility] [place] [facility] [address] [id number] [place] [address]- 2742 Sep, [facility] [place] [facility] [address] [id number] [place] [address]- 7972 Sep, [facility] [place] [facility] [address] [id number] [place] [address]- 7925 Sep, [facility] [place] [facility] [address] [id number] [place] [address]- 5882 Sep, [facility] [place] [facility] [address] [id number] [place] [address]- 9607 Sep, [facility] [place] [facility] [address] [id number] [place] [address]- 2580 Sep, [facility] [place] [facility] [address] [id number] [place] [address]- 6619 Sep, [facility] [address] [id number] [place] [address]- 5689 Sep, [facility] [address] [id number] [place] [address]- 1350 Sep, [facility] [address] [id number] [place] [address]- 5139 Aug, [facility] [address] [id number] [place] [address]- 5342 Aug, [facility] [address] [id number] [place] [address]- 2997 Aug, [facility] [address] [id number] [place] [address]- 9674 Aug, [facility] [address] [id number] [place] [address]- 4196 Aug, [facility] [address] [id number] [place] [address]- 8659 Aug, [facility] [address] [id number] [place] [address]- 1060 Aug, [facility] [address] [id number] [place] [address]- 4758 Aug, [facility] [address] [id number] [place] [address]- 8777 Aug, [facility] [address] [id number] [place] [address]- 8229 Aug, [facility] [address] [id number] [place] [address]- 7380 Aug, [facility] [address] [place] [id number] 10 Aug, 2014 [facility] [address] [id number] [place] [address]- 4793 Aug, [facility] [address] [id number] [place] [address]- 6352 10 Aug, 2014 [facility] [place] [facility] [address] [id number] [place] [address]- 7795 Aug, [facility] [place] [facility] [address] [id number] [place] [address]- 0586 Aug, [facility] [place] [facility] [address] [id number] [place] [address]- 1111 Aug, [facility] [place] [facility] [address] [id number] [place] [address]- 3034 Aug, [facility] [place] [facility] [address] [id number] [place] [address]- 3851 Aug, [facility] [place] [facility] [address] [id number] [place] [address]- 8482 Aug, [facility] [place] [facility] [address] [id number] [place] [address]- 1279 Aug, [facility] [place] [facility] [address] [id number] [place] [address]- 4530 Aug, [facility] [place] [facility] [address] [id number] [place] [address]- 8563 Aug, [facility] [place] [facility] [address] [id number] [place] [address]- 1547 Aug, [facility] [place] [facility] [address] [id number] [place] [address]- 1230 Aug, [facility] [place] [facility] [address] [id number] [place] [address]- 7948 Aug, [facility] [place] [facility] [address] [id number] [place] [address]- 5908 Aug, [facility] [place] [facility] [address] [id number] [place] [address]- 4864 Aug, [facility] [place] [facility] [address] [id number] [place] [address]- 5563 Aug, [facility] [place] [facility] [address] [id number] [place] [address]- 4218 Aug, [facility] [place] [facility] [address] [id number] [place] [address]- 0152 Jul, [facility] [place] [facility] [address] [id number] [place] [address]- 6613 Jul, [facility] [place] [facility] [address] [id number] [place] [address]- 2455 Jul, [facility] [place] [facility] [address] [id number] [place] [address]- 6211 Jul, [facility] [place] [facility] [address] [id number] [place] [address]- 1418 Jul, [facility] [place] [facility] [address] [id number] [place] [address]- 0542 Jul, [facility] [place] [facility] [address] [id number] [place] [address]- 6908 Jul, [facility] [place] [facility] [address] [id number] [place] [address]- 9407 Jul, [facility] [place] [facility] [address] [id number] [place] [address]- 9914 Jul, [facility] [place] [facility] [address] [id number] [place] [address]- 4268 Jul, [facility] [place] [facility] [address] [id number] [place] [address]- 7849 Jun, [facility] [place] [facility] [address] [id number] [place] [address]- 8077 Jun, [facility] [place] [facility] [address] [id number] [place] [address]- 3839 Jun, [facility] [place] [facility] [address] [id number] [place] [address]- 9788 Jun, [facility] [place] [facility] [address] [id number] [place] [address]- 7962 15 Jun, 2014 [facility] [place] [facility] [address] [id number] [place] [address]- 0457 15 Jun, 2014 [facility] [place] [facility] [address] [id number] [place] [address]- 8692 Jun, [facility] [place] [facility] [address] [id number] [place] [address]- 2438 Jun, [facility] [place] [facility] [address] [id number] [place] [address]- 8392 Jun, [facility] [place] [facility] [address] [id number] [place] [address]- 6220 Jun, [facility] [place] [facility] [address] [id number] [place] [address]- 0656 29 May, 2014 [facility] [place] [facility] [address] [id number] [place] [address]- 5318 29 May, 2013 [facility] [place] [facility] [address] [id number] [address]- 0278 26 May, 2013 [facility] [place] [facility] [address] [id number] [place] [address]- 6606 26 May, 2013 [facility] [place] [facility] [address] [id number] [place] [address]- 3994 17 May, 2013 [facility] [place] [facility] [address] [id number] [address]- 0856 17 May, 2013 [facility] [place] [facility] [address] [id number] [place] [address]- 2545 15 Sep, 2013 [facility] [place] [facility] [address] [id number] [place] [address] 2546 15 Sep, 2013 [facility] [place] [facility] [address] [id number] [place] [address]- 2543 15 May, 2013 [facility] [place] [facility] [address] [id number] [place] [address]- 2546 15 May, 2013 [facility] [place] [facility] [address] [id number] [place] [address]- 5655 10 May, 2013 [facility] [place] [facility] [address] [id number] [place] [address]- 4306 May, 2013 [facility] [place] [facility] [address] [id number] [place] [address]- 6006 May, 2013 [facility] [place] [facility] [address] [id number] [place] [address]- 6606 May, 2013 [facility] [place] [facility] [address] [id number] [place] [address]- 6805 May, 2013 [facility] [place] [facility] [address] [id number] [place] [address]- 6126 May, [facility] [place] [facility] [address] [id number] [place] [address]- 7441 Apr, [facility] [place] [facility] [address] [id number] [place] [address]- 6911 Apr, [facility] [place] [facility] [address] [id number] [place] [address]- 7613 Apr, [facility] [place] [facility] [address] [id number] [place] [address]- 3046 Apr, [facility] [place] [facility] [address] [id number] [place] [address]- 2973 Apr, [facility] [place] [facility] [address] [id number] [place] [address]- 2547 Apr, [facility] [place] [facility] [address] [id number] [place] [address]- 4753 Apr, [facility] [place] [facility] [address] [id number] [place] [address]- 9632 Apr, [facility] [place] [facility] [address] [id number] [place] [address]- 8458 Apr, [facility] [place] [facility] [address] [id number] [place] [address]- 4085 Apr, [facility] [place] [facility] [address] [id number] [place] [address]- 8331 Apr, [facility] [place] [facility] [address] [id number] [place] [address]- 7214 Apr, [facility] [place] [facility] [address] [id number] [place] [address]- 9328 Apr, [facility] [place] [facility] [address] [id number] [place] [address]- 8816 Apr, [facility] [place] [facility] [address] [id number] [place] [address]- 2521 Apr, [facility] [place] [facility] [address] [id number] [place] [address]- 3556 Mar, [facility] [place] [facility] [address] [id number] [place] [address]- 7025 Mar, [facility] [place] [facility] [address] [id number] [place] [address]- 3346 Mar, [facility] [place] [facility] [address] [id number] [place] [address]- 4381 Mar, [facility] [place] [facility] [address] [id number] [place] [address]- 2762 Mar, [facility] [place] [facility] [address] [id number] [place] [address]- 1429 Mar, [facility] [place] [facility] [address] [id number] [place] [address]- 4173 Mar, [facility] [place] [facility] [address] [id number] [place] [address]- 7583 Mar, [facility] [place] [facility] [address] [id number] [place] [address]- 9256 Mar, [facility] [place] [facility] [address] [id number] [place] [address] Mar, [facility] [place] [facility] [address] [id number] [place] [address] Mar, 2013 [facility] [place] [facility] [address] [id number] [place] [address] Mar, 2013 [facility] [place] [facility] [address] [id number] [place] [address] Mar, 2013 [facility] [place] [facility] [address] [id number] [place] [address] Mar, 2013 [facility] [place] [facility] [address] [id number] [place] [address] Mar, 2013 [facility] [place] [facility] [address] [id number] [place] [address] Mar, 2013 [facility] [place] [facility] [address] [id number] [place] [address] Mar, 2013 [facility] [place] [facility] [address] [id number] [place] [address] Mar, [facility] [place] [facility] [address] [id number] [place] [address] Feb, [facility] [place] [facility] [address] [id number] [place] [address] Feb, [facility] [place] [facility] [address] [id number] [place] [address] Feb, [facility] [place] [facility] [address] [id number] [place] [address] 134[address] Feb, [facility] [place] [facility] [address] [id number] [place] [address] Feb, [facility] [place] [facility] [address] [id number] [place] [address] Feb, [facility] [place] [facility] [address] [id number] [place] [address] Feb, [facility] [place] [facility] [address] [id number] [place] [address] Feb, [facility] [place] [facility] [address] [id number] [place] [address] Feb, [facility] [place] [facility] [address] [id number] [place] [address] Feb, [facility] [place] [facility] [address] [id number] [place] [address] Feb, [facility] [place] [facility] [address] [id number] [place] [address] Feb, [facility] [place] [facility] [address] [id number] [place] [address] Feb, [facility] [place] [facility] [address] [id number] [place] [address] Feb, [facility] [place] [facility] [address] [id number] [place] [address] January, [facility] [place] [facility] [address] [id number] [place] [address] January, [facility] [place] [facility] [address] [id number] [place] [address] January, [facility] [place] [facility] [address] [id number] [place] [address] January, [facility] [place] [facility] [address] [id number] [place] [address] January, [facility] [place] [facility] [address] [id number] [place] [address] January, [facility] [place] [facility] [address] [id number] [place] [address] January, [facility] [place] [facility] [address] [id number] [place] [address] January, [facility] [place] [facility] [address] [id number] [place] [address] January, [facility] [place] [facility] [address] [id number] [place] [address] January, [facility] [address] [id number] [place] [address]- 47[address] January, [facility] [place] [facility] [address] [id number] [place] [address] January, [facility] [place] [facility] [address] [id number] [place] [address] 3260 January, [facility] [place] [facility] [address] [id number] [place] [address]- [address] January, [facility] [place] [facility] [address] [id number] [place] [address]- [address] Dec, [facility] [place] [facility] [address] [id number] [place] [address] Dec, [facility] [place] [facility] [address] [id number] [place] [address]- [address] Dec, [facility] [place] [facility] [address] [id number] [place] [address]- [address] Dec, [facility] [place] [facility] [address] [id number] [place] [address]- [address]58 Dec, [facility] [place] [facility] [address] [id number] [place] [address]- [address] Dec, [facility] [place] [facility] [address] [id number] [place] [address]- 1734 Dec, [facility] [place] [facility] [address] [id number] [place] [address]- [address]605 Dec, [facility] [place] [facility] [address] [id number] [place] [address]- [address] Dec, [facility] [place] [facility] [address] [id number] [place] [address]- [address] Dec, [facility] [place] [facility] [address] [id number] [place] [address] Nov, [facility] [place] [facility] [address] [id number] [place] [address] Nov, [facility] [place] [facility] [address] [id number] [place] [address] Nov, [facility] [place] [facility] [address] [id number] [place] [address]- 8599 Nov, [facility] [place] [facility] [address] [id number] [place] [address]- [address] Nov, [facility] [place] [facility] [address] [id number] [place] [address]- [address] 08 Nov, 2013 [facility] [place] [facility] [address] [id number] [place] [address]- [address] Nov, [facility] [place] [facility] [address] [facility] [id number] [place] [address]- [address] Nov, [facility] [place] [facility] [address] [id number] [place] [address]- [address] Nov, [facility] [place] [facility] [address] [facility] [place] [id number] [place] [address] Nov, [facility] [place] [facility] [address] [id number] [place] [address] Oct, [facility] [place] [facility] [address] [facility] [id number] [place] [address] 27 Oct, 2013 [facility] [place] [facility] [address] [facility] [id number] [place] [address] 1428 Oct, [facility] [place] [facility] [address] [facility] [id number] [place] [address] 8270 Oct, [facility] [place] [facility] [address] [id number] [place] [address] 1307 20 Oct, 2013 [facility] [place] [facility] [address] [facility] [id number] [place] [address] 6898 20 Oct, 2013 [facility] [place] [facility] [address] [facility] [id number] [place] [address] 5155 14 Oct, 2013 [facility] [place] [facility] [address] [id number] [place] [address] 4[address] Oct, [facility] [place] [facility] [address] [id number] [place] [address] 4[address] Oct, [facility] [place] [facility] [address] [id number] [place] [address] 1253 Oct, [facility] [place] [facility] [address] [id number] [place] [address] 8929 Oct, [facility] [place] [facility] [address] [id number] [place] [address] 3964 Oct, [facility] [place] [facility] [address] [id number] [place] [address] 7723 Oct, [facility] [place] [facility] [address] [id number] [place] [address] 0224 Oct, [facility] [place] [facility] [address] [id number] [place] [address]- 1825 Sep, [facility] [place] [facility] [address] [id number] [place] [address]- 5998 Sep, [facility] [place] [facility] [address] [id number] [place] [address]- 8014 Sep, [facility] [place] [facility] [address] [id number] [place] [address] 5847 Sep, [facility] [place] [facility] [address] [id number] [place] [address]- 7555 Sep, [facility] [place] [facility] [address] [id number] [place] [address]- 9728 Sep, [facility] [place] [facility] [address] [id number] [place] [address]- 1737 Sep, [facility] [place] [facility] [address] [id number] [place] [address]- 6001 Sep, [facility] [place] [facility] [address] [id number] [place] [address]- 8459 08 Sep, 2013 [facility] [address] [id number] [place] [address]- 2763 Sep, [facility] [address] [id number] [place] [address] 8833 Aug, [facility] [address] [id number] [place] [address]- 7825 Aug, [facility] [address] [id number] [place] [address]- 2562 Jul, [facility] [address] [id number] [place] [address] 7959 Jul, [facility] [address] [id number] [place] [address]- 7146 Jul, [facility] [address] [id number] [place] [address] 7534 Jul, [facility] [address] [id number] [place] [address] 2486 Jul, [facility] [address] [id number] [place] [address]- 4876 Jul, [facility] [address] [id number] [place] [address]- 3378 Jul, [facility] [address] [id number] [place] [address]- 0044 Jul, [facility] [address] [id number] [place] [address]- 7156 Jul, [facility] [place] [facility] [address] [id number] [place] [address]- 6707 Jul, [facility] [address] [id number] [place] [address]- 1367 Jul, [facility] [address] [id number] [place] [address]- 9306 Jul, [facility] [place] [facility] [address] [id number] [place] [address]- 2572 Jul, 2012 [facility] [place] [facility] [address] [id number] [place] [address]- 8685 Jul, [facility] [place] [facility] [address] [id number] [place] [address]- 7480 Jul, 2012 [facility] [place] [facility] [address] [id number] [place] [address]- 8087 Jul, 2012 [facility] [place] [facility] [address] [id number] [place] [address]- 9599 Jul, [facility] [place] [facility] [address] [id number] [place] [address]- 8130 Jul, [facility] [place] [facility] [address] [id number] [place] [address]- 6977 Jul, [facility] [place] [facility] [address] [id number] [address] 269[address] Jun, 2012 [facility] [place] [facility] [address] [id number] [place] [address]- 3117 16 Jun, 2012 [facility] [place] [facility] [address] [id number] [place] [address]- 5639 Jun, 2012 [facility] [place] [facility] [address] [id number] [place] [address]- 8730 16 Jun, 2012 [facility] [place] [facility] [address] [id number] [place] [address]- 9076 16 Jun, 2012 [facility] [place] [facility] [address] [id number] [place] [address]- 5514 16 Jun, 2012 [facility] [place] [facility] [address] [id number] [place] [address]- 9081 10 Jun, 2012 [facility] [place] [facility] [address] [id number] [place] [address]- 9063 10 Jun, 2012 [facility] [place] [facility] [address] [id number] [place] [address]- 7938 Jun, [facility] [place] [facility] [address] [id number] [place] [address]- 8874 Jun, [facility] [place] [facility] [address] [id number] [place] [address]- 7452 Jun, [facility] [place] [facility] [address] [id number] [place] [address]- 1720 May, 2012 [facility] [place] [facility] [address] [id number] [place] [address]- 7619 25 May, 2012 [facility] [place] [facility] [address] [id number] [place] [address]- 9988 19 May, 2013 [facility] [place] [facility] [address] [id number] [place] [address]- 5037 17 May, 2013 [facility] [place] [facility] [address] [id number] [place] [address]- 6441 May, [facility] [place] [facility] [address] [id number] [place] [address]- 6728 May, [facility] [place] [facility] [address] [id number] [place] [address]- 6466 May, [facility] [place] [facility] [address] [facility] [id number] [place] [address]- 7797 05 May, 2013 [facility] [place] [facility] [address] [id number] [place] [address]- 3084 Apr, [facility] [place] [facility] [address] [id number] [place] [address]- 2748 Apr, [facility] [place] [facility] [address] [id number] [place] [address]- 1537 Apr, [facility] [place] [facility] [address] [facility] [id number] [place] [address]- 7574 Apr, [facility] [place] [facility] [address] [facility] [id number] [place] [address]- 0246 Apr, [facility] [place] [facility] [address] [id number] [place] [address]- 6237 Mar, [facility] [place] [facility] [address] [id number] [place] [address]- 7247 Mar, [facility] [place] [facility] [address] [id number] [place] [address]- 1645 Mar, [facility] [place] [facility] [address] [id number] [place] [address]- 5786 Mar, [facility] [place] [facility] [address] [id number] [place] [address]- 0654 Mar, [facility] [place] [facility] [address] [id number] [place] [address]- 4205 Mar, [facility] [place] [facility] [address] [id number] [place] [address]- 0715 Mar, [facility] [place] [facility] [address] [id number] [place] [address]- 5646 Mar, [facility] [place] [facility] [address] [id number] [place] [address]- 3522 Feb, [facility] [place] [facility] [address] [id number] [place] [address]- 9156 Feb, [facility] [place] [facility] [address] [id number] [place] [address]- 1808 January, [facility] [place] [facility] [address] [id number] [place] [address]- 9740 January, [facility] [place] [facility] [address] [id number] [place] [address]- 5262 Dec, [facility] [place] [facility] [address] [id number] [place] [address]- 7401 Dec, [facility] [place] [facility] [address] [id number] [place] [address]- 6527 Nov, [facility] [place] [facility] [address] [id number] [place] [address]- 8551 Nov, [facility] [address] [id number] [place] [address]- 1311 Nov, [facility] [address] [id number] [place] [address]- 0070 Nov, [facility] [address] [facility] [id number] [place] [address]- 8132 Oct, [facility] [address] [id number] [place] [address]- 4700 Oct, [facility] [address] [id number] [place] [address]- 6213 Oct, [facility] [address] [facility] [id number] [place] [address]- 9188 Oct, [facility] [address] [facility] [id number] [place] [address]- 1473 16 Oct, 2012 [facility] [address] [id number] [place] [address]- 7053 14 Oct, 2012 [facility] [address] [facility] [id number] [place] [address]- 2466 08 Oct, 2012 [facility] [address] [facility] [id number] [place] [address]- 9244 07 Oct, 2012 [facility] [address] [id number] [place] [address]- 2692 Oct, [facility] [address] [id number] [place] [address]- 3698 Sep, [facility] [address] [id number] [place] [address]- 8197 Sep, [facility] [place] [facility] [address] [facility] [id number] [place] [address]- 7866 Sep, [facility] [address] [facility] [id number] [place] [address]- 8173 Sep, [facility] [place] [facility] [address] [id number] [place] [address]- 1058 17 Sep, 2012 [facility] [place] [facility] [address] [id number] [place] [address]- 6674 10 Sep, 2012 [facility] [place] [facility] [address] [id number] [place] [address] 2546 09 Sep, 2012 [facility] [place] [facility] [address] [id number] [place] [address]- 7120 Sep, [facility] [place] [facility] [address] [id number] [place] [address]- 7904 Aug, [facility] [place] [facility] [address] [id number] [place] [address]- 7094 Aug, [facility] [place] [facility] [address] [id number] [place] [address]- 4767 Aug, [facility] [place] [facility] [address] [id number] [place] [address]- 6251 Aug, [facility] [place] [facility] [address] [id number] [place] [address]- 5010 Aug, [facility] [place] [facility] [address] [id number] [place] [address]- 2549 Aug, [facility] [place] [facility] [address] [id number] [place] [address]- 6579 Aug, [facility] [place] [facility] [address] [id number] [place] [address]- 2549 Aug, [facility] [place] [facility] [address] [id number] [place] [address]- 8220 Jul, [facility] [place] [facility] [address] [id number] [place] [address] 2546 Jul, [facility] [place] [facility] [address] [id number] [place] [address] 2543 Jul, [facility] [place] [facility] [address] [id number] [place] [address]- 4794 Jul, [facility] [place] [facility] [address] [id number] [place] [address]- 9197 Jul, [facility] [place] [facility] [address] [id number] [place] [address]- 5667 Jul, [facility] [place] [facility] [address] [facility] [id number] [place] [address] Jun, [facility] [place] [facility] [address] [id number] [place] [address]- 4091 Jun, [facility] [place] [facility] [address] [id number] [place] [address]- 2108 Jun, [facility] [place] [facility] [address] [id number] [place] [address]- 3520 Jun, [facility] [place] [facility] [address] [id number] [place] [address]- 4325 Jun, [facility] [place] [facility] [address] [id number] [address]- 9920 Jun, [facility] [place] [facility] [address] [id number] [place] [address]- 5762 Jun, [facility] [place] [facility] [address] [id number] [address]- 6564 Jun, [facility] [place] [facility] [address] [id number] [place] [address]- 0331 10 Jun, 2012 [facility] [place] [facility] [address] [id number] [place] [address]- 1103 26 May, 2012 [facility] [place] [facility] [address] [id number] [place] [address]- 1826 24 May, 2012 [facility] [place] [facility] [address] [facility] [id number] [place] [address]- 3526 18 May, 2012 [facility] [place] [facility] [address] [facility] [id number] [place] [address]- 5175 30 Apr, 2012 [facility] [place] [facility] [address] [id number] [place] [address]- 9918 Apr, [facility] [place] [facility] [address] [id number] [place] [address]- 2801 Apr, [facility] [place] [facility] [address] [id number] [place] [address]- 2556 Apr, [facility] [place] [facility] [address] [id number] [place] [address]- 9069 Apr, [facility] [place] [facility] [address] [id number] [place] [address]- 2627 Apr, [facility] [place] [facility] [address] [id number] [place] [address]- 1421 Mar, [facility] [place] [facility] [address] [id number] [place] [address]- 6316 Mar, [facility] [place] [facility] [address] [id number] [place] [address]- 9891 Mar, [facility] [place] [facility] [address] [id number] [place] [address]- 6816 Mar, [facility] [place] [facility] [address] [id number] [place] [address]- 8687 Feb, [facility] [place] [facility] [address] [id number] [place] [address]- 2670 Feb, [facility] [place] [facility] [address] [id number] [place] [address]- 7418 Feb, [facility] [place] [facility] [address] [id number] [place] [address]- 4162 Feb, [facility] [place] [facility] [address] [id number] [place] [address]- 8622 Feb, [facility] [place] [facility] [address] [id number] [place] [address]- 9121 January, [facility] [place] [facility] [address] [id number] [place] [address]- 7397 January, [facility] [place] [facility] [address] [id number] [place] [address]- 9404 January, [facility] [address] [id number] [place] [address]- 9350 January, [facility] [address] [id number] [place] [address]- 9886 January, [facility] [address] [id number] [place] [address]- 3418 January, [facility] [address] [id number] [place] [address]- 0038 Dec, [facility] [address] [id number] [place] [address]- 3024 Dec, [facility] [address] [id number] [place] [address]- 3777 Dec, [facility] [address] [id number] [place] [address]- 5069 Dec, [facility] [address] [id number] [place] [address]- 2755 Dec, [facility] [address] [id number] [place] [address]- 4920 Nov, [facility] [address] [id number] [place] [address]- 0115 Nov, [facility] [place] [facility] [address] [id number] [place] [address]- 4586 Nov, [facility] [place] [facility] [address] [id number] [place] [address]- 5936 Nov, [facility] [place] [facility] [address] [id number] [place] [address]- 6619 Oct, [facility] [place] [facility] [address] [id number] [place] [address]- 2604 Oct, [facility] [place] [facility] [address] [id number] [place] [address]- 1839 24 Oct, 2011 [facility] [address] [id number] [place] [address]- 3156 Oct, [facility] [place] [facility] [address] [id number] [place] [address]- 8036 Oct, [facility] [place] [facility] [address] [id number] [place] [address]- 7806 Sep, [facility] [place] [facility] [address] [id number] [place] [address]- 9325 Sep, [facility] [place] [facility] [address] [id number] [place] [address]- 7651 Sep, [facility] [place] [facility] [address] [id number] [place] [address]- 2111 Sep, [facility] [address] [id number] [place] [address]- 1334 Sep, [facility] [place] [facility] [address] [id number] [place] [address]- 1252 Sep, [facility] [address] [id number] [place] [address]- 2508 Aug, [facility] [place] [facility] [address] [facility] [id number] [place] [address]- 2420 Aug, [facility] [place] [facility] [address] [id number] [place] [address]- 8056 Aug, [facility] [place] [facility] [address] [id number] [place] [address]- 6670 Jul, [facility] [place] [facility] [address] [id number] [place] [address]- 3875 Jul, [facility] [place] [facility] [address] [id number] [place] [address]- 3904 Jul, [facility] [place] [facility] [address] [facility] [id number] [place] [address]- 0034 Jul, [facility] [place] [facility] [address] [id number] [place] [address]- 7924 31 Jun, 2011 [facility] [place] [facility] [address] [id number] [place] [address]- 1092 31 Jun, 2011 [facility] [place] [facility] [address] [id number] [place] [address]- 0799 18 Jun, 2011 [facility] [place] [facility] [address] [id number] [place] [address]- 7983 10 Jun, 2011 [facility] [place] [facility] [address] [id number] [place] [address]- 5294 10 Jun, 2011 [facility] [place] [facility] [address] [id number] [place] [address] 10 Jun, 2011 [facility] [place] [facility] [address] [id number] [place] [address] Mar, [facility] [place] [facility] [address] [id number] [place] [address] 18 Dec, 2010 [facility] [place] [facility] [address] [id number] [place] [address] Dec, [facility] [place] [facility] [address] [id number] [place] [address] Nov, [facility] [place] [facility] [address] [id number] [place] [address] 16 Nov, 2010 [facility] [place] [facility] [address] [id number] [place] [address] Sep, [facility] [place] [facility] [address] [id number] [place] [address] Aug, [facility] [place] [facility] [address] [id number] [place] [address] 39[address] Aug, [facility] [place] [facility] [address] [id number] [place] [address] 76[address] Aug, [facility] [place] [facility] [address] [id number] [place] [address] 29 Aug, 2010 [facility] [place] [facility] [address] [id number] [place] [address] 27 Aug, 2010 [facility] [place] [facility] [address] [id number] [place] [address] 9516 14 Aug, 2010 [facility] [place] [facility] [address] [facility] [id number] [place] [address] 5836 08 Aug, 2010 [facility] [place] [facility] [address] [id number] [place] [address] 1706 08 Aug, 2010 [facility] [place] [facility] [address] [id number] [place] [address] 07 Aug, 2010 [facility] [place] [facility] [address] [facility] [id number] [place] [address] 06 Aug, 2010 [facility] [place] [facility] [address] [facility] [id number] [place] [address] Aug, [facility] [place] [facility] [address] [id number] [address] Aug, [facility] [place] [facility] [address] [id number] [place] [address] 30 Jul, 2010 [facility] [place] [facility] [address] [id number] [place] [address] 9736 30 Jul, 2010 [facility] [place] [facility] [address] [id number] [place] [address] 30 Jul, 2010 [facility] [place] [facility] [address] [id number] [place] [address] 2545 17 Jul, 2010 [facility] [place] [facility] [address] [id number] [place] [address] 2546 Jul, [facility] [place] [facility] [address] [facility] [id number] [place] [address] Jul, [facility] [place] [facility] [address] [facility] [id number] [place] [address] 24 Jun, 2010 [facility] [place] [facility] [address] [id number] [place] [address] 2867 19 Jun, 2010 [facility] [address] [id number] [place] [address] 4[address] 19 Jun, 2010 [facility] [address] [id number] [place] [address] 2546 13 Jun, 2010 [facility] [address] [id number] [place] [address] 16 Apr, 2010 [facility] [address] [id number] [place] [address] 2540 20 Mar, 2010 [facility] [address] [id number] [place] [address], [place] [address]49 17 Feb, 2010 [facility] [address] [id number] [place] [address] January, [facility] [address] [id number] [place] [address] 15 Dec, 2009 [facility] [address] [id number] [place] [address] Nov, [facility] [address] [id number] [place] [address] 31 Aug, [address] [facility] [address] [id number] [place] [address] 23 Aug, 2009 [facility] [address] [id number] [place] [address] 9542 07 Aug, 2009 [facility] [address] [id number] [place] [address] 49[address] 12 Jul, 2009 [facility] [address] [id number] [place] [address] 9396 09 Jul, 2009 [facility] [address] [id number] [place] [address] 37[address] 07 Jul, 2009 [facility] [address] [id number] [place] [address] Jun, [facility] [address] [id number] [address] Jun, [facility] [id number] [address] Jun, [facility] [id number] [address] Jun, [facility] [id number] [address] Jun, [facility] [id number] [address] Jun, [facility] [id number] [address] Apr, [facility] [id number] [address] Apr, [facility] [id number] [address] Feb, [facility] [id number] [address] January, [facility] [address] [id number] [address] Dec, IMMUNIZATIONS No Known Immunizations SOCIAL HISTORY Never Assessed REASON FOR VISIT BH f/u, Depression and irritability. PLAN OF CARE Activity Details Follow Up Next available Reason:Mood. VITAL SIGNS MEDICATIONS Unknown Medications RESULTS No Results PROCEDURES Procedure Date Ordered Result Body Site [facility] VISIT MENTAL HEALTH ESTAB PT Aug 24, 2017 Psychotherapy, patient &/family, 45 minutes, established patient Aug 24, 2017 INSTRUCTIONS MEDICATIONS ADMINISTERED No Known Medications MEDICAL (GENERAL) HISTORY Type Description Date Medical History type II diabetes Medical History coronary artery disease stress test 01/5015 Medical History chronic obstructive pulmonary disease (COPD) Medical History gastroesophageal reflux disease (GERD) Medical History acute renal failure Medical History erectile dysfunction Medical History hyperlipidemia Medical History obesity Medical History skin cancer-basal cell R zoroastrian (removed) Medical History Arthritis Medical History degenerative [...] tunnel release (Left) 2000 Surgical History EGD (Pending Sale To [facility]) 2009 Surgical History colonoscopy 2009 (Pending Sale To [facility]), 2013 ([employer]) Surgical History heart 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 04/2014 Surgical History carotid US 05/2014 Surgical History resection of skin cancer from Right [facility] Surgical History Biopsy of Lung Bilateral/Left lung lymph node 09/2016 Surgical History Bone Marrow Biopsy Surgical History port in the right chest wall 12/2016 Hospitalization History [facility] low potassium, low magnesium, chest painina 01/2015 Hospitalization History inability to urinate 09/16/15 Hospitalization History [facility] mental health early Hospitalization History hyperkalemia 10/2017 Hospitalization History fluid in lung
--- OUTSIDE RECORDS SUMMARY | 2018-08-08 12:55 | XMS REPORT ---
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 Name Role Phone NOEMI WASHBURN Unavailable PROBLEMS Type Condition ICD9-CM Code POD40-QF Code Onset Dates Condition Status SNOMED Code Problem Chronic lymphocytic leukemia C91.10 Active 14006305 Problem Insomnia, unspecified type G47.00 Active 521215456 Problem Lymphocytosis D72.820 Active 85142127 Problem Anxiety F41.9 Active 57230239 Problem Eye exam abnormal R93.8 Active 286158294 Problem Morbid obesity E66.01 Active 218352208 Problem Diabetic polyneuropathy associated with type 2 diabetes mellitus E11.42 Active 53502979 Problem Essential hypertension I10 Active 79925650 Problem Falling R29.6 Active 497374152 Problem 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 Active 368546444 Problem Cough R05 Active 37741033 Problem Dysuria R30.0 Active 79012155 Problem Eustachian tube dysfunction, unspecified laterality H69.80 Active 67122979 Problem Bilateral primary osteoarthritis of knee M17.0 Active 196901128 Problem Polyneuropathy associated with underlying disease G63 Active 528198618 Problem Anemia of chronic illness D63.8 Active 574617657 Problem Retinal edema H35.81 Active 2331994 Problem DM neuro manif type II E11.49 Active 85215575 Problem Diabetes E11.9 Active 05137933 Problem Hypokalemia E87.6 Active 17649753 Problem Benign prostatic hyperplasia with lower urinary tract symptoms, unspecified morphology N40.1 Active 534202846 Problem Reactive airway disease J45.909 Active 763532191499 Problem Bipolar I disorder, most recent episode (or current) mixed, moderate F31.62 Active 09155959 Problem Chronic pain G89.29 Active 71869755 Problem Leukocytosis D72.829 Active 914864477 ALLERGIES No Information ENCOUNTERS Encounter Location Date Diagnosis [facility] [id number], [place] [address] Apr, [facility] [id number], [place] [address] Mar, [facility] [id number] [address] Mar, [facility] [id number], [place] [address] Mar, [facility] [id number], [place] [address] Mar, [facility] [id number] [address] Feb, Bipolar I disorder, most recent episode (or current) mixed, moderate F31.62 [facility] [address], [place] [address] Feb, Chronic pain G89.29 [facility] [id number], [place] [address] Feb, Decubitus ulcer of right foot, stage 3 L89.893 and BMI 50.0- 59.9, adult Z68.43 [facility] [id number], [place] [address] 17[address] Feb, Bipolar I disorder, most recent episode (or current) mixed, moderate F31.62 [facility] [id number], [place] [address] Feb, [facility] [id number] [address] January, [facility] [id number] [place] [address] January, Chronic pain G89.29 [facility] [id number], [place] [address] 7600 January, Bipolar I disorder, most recent episode (or current) mixed, moderate F31.62 [facility] [id number] [place] [address] 29161- 4647 January, Bipolar I disorder, most recent episode (or current) mixed, moderate F31.62 [facility] [id number] [place] [address] 74616- 3572 Dec, Bipolar I disorder, most recent episode (or current) mixed, moderate F31.62 and BMI 50.0-59.9, adult Z68.43 [facility] [id number] [place] [address] 52579- 9364 Dec, Bipolar I disorder, most recent episode (or current) mixed, moderate F31.62 [facility] [id number] [place] [address] 56551- 2500 Dec, Chronic pain G89.29 [facility] [address] 20252- 8668 Dec, DM neuro manif type II E11.49 ; Right flank pain R10.9 ; pen[facility]entiary 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 Z79.891 ; Encounter for medication monitoring Z51.81 and BMI 50.0-59.9, adult Z68.43 [facility] [id number] [place] [address] 04017- 8022 Dec, Bipolar I disorder, most recent episode (or current) mixed, moderate F31.62 [facility] [id number] [place] [address] 39366- 5643 Nov, Bipolar I disorder, most recent episode (or current) mixed, moderate F31.62 [facility] [id number] [place] [address] 20140- 4502 Nov, Chronic pain G89.29 [facility] [id number] [place] [address] 57100- 5234 Nov, Bipolar I disorder, most recent episode (or current) mixed, moderate F31.62 [facility] [id number] [place] [address] 98021- 6221 Nov, Hypokalemia E87.6 [facility] [address] 311800- 9384 Nov, Bipolar I disorder, most recent episode (or current) mixed, moderate F31.62 [facility] [address] 18718- 7970 Oct, Chronic pain G89.29 [facility] [address] 356471- 6317 Oct, BMI 50.0-59.9, adult Z68.43 and Bipolar I disorder, most recent episode (or current) mixed, moderate F31.62 [facility] [id number] [place] [address] 49981- 4815 Oct, Bipolar I disorder, most recent episode (or current) mixed, moderate F31.62 [facility] [address] 98788- 7556 Oct, [facility] [address] 37048- 5154 Oct, Hypokalemia E87.6 [facility] [id number] [place] [address] 22681- 2876 Oct, DM neuro manif type II E11.49 [facility] [address] 81215- 0634 Oct, Bipolar I disorder, most recent episode (or current) mixed, moderate F31.62 [facility] [address] 59569- 4733 Oct, Bipolar I disorder, most recent episode (or current) mixed, moderate F31.62 [facility] [address] 16810- 1435 14 Oct, 2017 Hyperkalemia E87.5 ; Falling R29.6 ; BMI 50.0-59.9, adult Z68.43 and Acute left ankle pain M25.572 [facility] [id number] [place] [address] 06899- 6779 08 Oct, 2017 DM neuro manif type II E11.49 [facility] [id number] [place] [address] 34860- 1893 Oct, [facility] [address] 85388- 7514 Sep, Chronic pain G89.29 [facility] [id number] [place] [address] 84155- 0885 Sep, [facility] [address] 77239- 8832 Sep, Bilateral primary osteoarthritis of knee M17.[address] 38647- 7633 Sep, Generalized edema R60.1 [facility] [id number] [place] [address] 01684- 4867 Sep, Bipolar I disorder, most recent episode (or current) mixed, moderate F31.62 [facility] [id number] [place] [address] 25016- 3390 15 Sep, 2017 Hypoxia R09.02 ; Other hypervolemia E87.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 ; Anemia of chronic illness D63.8 and BMI 50.0- 59.9, adult Z68.43 [facility] [id number] [place] [address] 67497- 4226 Sep, [facility] [id number] [place] [address] 06191- 7493 Sep, Bipolar I disorder, most recent episode (or current) mixed, moderate F31.62 [facility] [address] 08853- 7683 Aug, Chronic pain G89.29 [facility] [id number] [place] [address] 44591- 9696 Aug, Generalized edema R60.1 [facility] [id number] [place] [address] 43264- 8979 Aug, [facility] [id number] [place] [address] 696211- 5163 Aug, [facility] [id number] [place] [address] 26443- 0771 14 Aug, 2017 Bipolar I disorder, most recent episode (or current) mixed, moderate F31.62 [facility] [id number] [place] [address] 23888- 0303 Aug, Bipolar I disorder, most recent episode (or current) mixed, moderate F31.62 [facility] [id number] [place] [address] 97433- 9190 Aug, Chronic pain G89.29 [facility] [id number] [place] [address] 47936- 6440 30 Jul, 2017 Bipolar I disorder, most recent episode (or current) mixed, moderate F31.62 [facility] [id number] [place] [address] 26771- 9508 Jul, Bipolar I disorder, most recent episode (or current) mixed, moderate F31.62 and BMI 60.0-69.9, adult Z68.44 [facility] [address] [place] [address] 14118- 3744 16 Jul, 2017 Bipolar I disorder, most recent episode (or current) mixed, moderate F31.62 [facility] [id number] [place] [address] 37838- 1847 06 Jul, 2017 Chronic pain G89.29 [facility] [id number] [place] [address] 71387- 1684 02 Jul, 2017 Bipolar I disorder, most recent episode (or current) mixed, moderate F31.62 [facility] [id number], [place] [address]- 8886 18 Jun, 2017 Polyneuropathy associated with underlying disease G63 and Diabetes E11.9 [facility] [address], [place] [address]- 2536 16 Jun, 2017 Bipolar I disorder, most recent episode (or current) mixed, moderate F31.62 [facility] [id number] [place] [address] 59610- 0870 09 Jun, 2017 Chronic pain G89.29 [facility] [id number] [place] [address] 23855- 9900 27 May, 2017 Bipolar I disorder, most recent episode (or current) mixed, moderate F31.62 [facility] [id number] [place] [address] 62896- 1300 21 May, 2017 Bipolar I disorder, most recent episode (or current) mixed, moderate F31.62 [facility] [address], [place] [address]- 0039 20 May, 2017 Diabetic polyneuropathy associated with type 2 diabetes mellitus E11.42 [facility] [address], [place] [address]- 5073 18 May, 2017 Bipolar I disorder, most recent episode (or current) mixed, moderate F31.62 [facility] [address], [place] [address]- 7081 13 May, 2017 Bipolar I disorder, most recent episode (or current) mixed, moderate F31.62 [facility] [address], [place] [address]- 5217 12 May, 2017 Chronic pain G89.29 [facility] [id number] [place] [address] 09496- 7902 Apr, Bipolar I disorder, most recent episode (or current) mixed, moderate F31.62 [facility] [id number] [place] [address] 80618- 7839 Apr, [facility] [id number] [place] [address] 90939- 9367 Apr, Chronic pain G89.29 and DM neuro manif type II E11.49 [facility] [id number] [place] [address] 02084- 5510 Apr, [facility] [id number] [place] [address] 526217- 6937 Apr, Bipolar I disorder, most recent episode (or current) mixed, moderate F31.62 [facility] [id number] [place] [address] 14316- 3024 Apr, Chronic pain G89.29 [facility] [id number] [place] [address] 90791- 8717 Apr, Iliotibial band syndrome, left M76.32 [facility] [id number] [place] [address] 20235- 0677 Apr, Bipolar I disorder, most recent episode (or current) mixed, moderate F31.62 [facility] [id number] [place] [address] 32680- 4575 Mar, Bipolar I disorder, most recent episode (or current) mixed, moderate F31.62 [facility] [id number] [place] [address] 55768- 7332 Mar, Bipolar I disorder, most recent episode (or current) mixed, moderate F31.62 [facility] [id number] [place] [address] 65261- 1767 Mar, [facility] [id number] [place] [address] 10384- 8120 Mar, Bipolar I disorder, most recent episode (or current) mixed, moderate F31.62 [facility] [id number] [place] [address] 94936- 6936 Mar, Chronic pain G89.29 [facility] [id number] [address]- 6957 Mar, Bipolar I disorder, most recent episode (or current) mixed, moderate F31.62 [facility] [id number] [place] [address] 16455- 4848 Mar, Bipolar I disorder, most recent episode (or current) mixed, moderate F31.62 [facility] [id number] [place] [address] 91118- 2709 Mar, Acute pain of left knee M25.562 ; Left hip pain M25.552 ; Generalized edema R60.1 and Tongue swelling R22.0 [facility] [id number] [place] [address] 72366- 3916 Mar, [facility] [id number] [place] [address] 67553- 7165 Feb, Chronic pain G89.29 [facility] [id number] [place] [address] 07381- 0624 Feb, Diabetes E11.9 [facility] [id number] [place] [address] 80406- 6093 January, Chronic pain G89.29 [facility] [id number] [place] [address] 16663- 3893 January, [facility] [id number] [place] [address] 16096- 9613 January, Bipolar I disorder, most recent episode (or current) mixed, moderate F31.62 [facility] [address] [place] [address] 21236- 2085 Dec, Bipolar I disorder, most recent episode (or current) mixed, moderate F31.62 [facility] [address] [place] [address] 69806- 7260 Dec, Chronic pain G89.29 [facility] [id number] [place] [address] 39613- 4025 Dec, Bipolar I disorder, most recent episode (or current) mixed, moderate F31.62 [facility] [address], [place] [address]- 0260 Dec, Diabetes E11.9 ; Essential hypertension I10 ; Chronic pain G89.29 and Morbid obesity E66.01 [facility] [address], [place] [address]- 4250 Dec, [facility] [id number] [place] [address] 580337- 6802 Dec, Bipolar I disorder, most recent episode (or current) mixed, moderate F31.62 [facility] [id number] [place] [address] 76414- 3875 Dec, Bipolar I disorder, most recent episode (or current) mixed, moderate F31.62 [facility] [id number] [address]- 1682 Nov, Chronic pain G89.29 [facility] [id number] [place] [address] 39449- 3830 Nov, Bipolar I disorder, most recent episode (or current) mixed, moderate F31.62 [facility] [address], [place] [address]- 0818 Nov, [facility] [address], [place] [address]- 2120 Nov, Bipolar I disorder, most recent episode (or current) mixed, moderate F31.62 [facility] [address], [place] [address]- 9102 Nov, Bipolar I disorder, most recent episode (or current) mixed, moderate F31.62 [facility] [address] [place] [address] 97374- 9250 Nov, [facility] [address], [place] [address]- 2278 Nov, [facility] [id number] [place] [address]- 1363 Nov, [facility] [id number] [place] [address] 73559- 5246 Oct, Chronic pain G89.29 [facility] [address] [place] [address] 37426- 8031 Oct, Bipolar I disorder, most recent episode (or current) mixed, moderate F31.62 [facility] [id number] [place] [address] 56577- 2773 Oct, [facility] [id number] [place] [address] 52082- 2495 Oct, Chronic pain G89.29 ; Diabetes E11.9 ; Anxiety F41.9 and 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 [facility] [id number] [place] [address] 06728- 7396 Oct, [facility] [id number] [place] [address] 44978- 6300 Oct, Diabetes E11.9 [facility] [id number] [place] [address] 37553- 7549 Oct, Bipolar I disorder, most recent episode (or current) mixed, moderate F31.62 [facility] [address] [place] [address] 99742- 1303 Sep, Chronic pain G89.29 [facility] [address] [place] [address] 07339- 1422 Sep, Chronic pain G89.29 [facility] [id number] [place] [address] 78086- 3000 Aug, Chronic pain G89.29 [facility] [address] [place] [address] 56190- 9345 Jul, [facility] [id number] [place] [address] 63428- 5538 Jul, Diabetes E11.9 [facility] [id number] [place] [address] 39513- 8043 Jul, Chronic pain G89.29 [facility] [id number] [place] [address]- 2164 Jul, Bipolar I disorder, most recent episode (or current) mixed, moderate F31.62 [facility] [address] 05206- 4127 Jun, Bipolar I disorder, most recent episode (or current) mixed, moderate F31.62 [facility] [address] 109049- 9662 Jun, [facility] [address] 96249- 8459 Jun, Bipolar I disorder, most recent episode (or current) mixed, moderate F31.62 [facility] [id number] [place] [address] 30255- 4121 30 May, 2016 Insomnia, unspecified type G47.00 [facility] [address] 536262- 0218 May, Bipolar I disorder, most recent episode (or current) mixed, moderate F31.62 [facility] [id number] [place] [address] 47182- 4098 14 May, 2016 [facility] [address] 922996- 0400 08 May, 2016 Bipolar I disorder, most recent episode (or current) mixed, moderate F31.62 [facility] [address] 62715- 2727 06 May, 2016 Diabetes E11.9 and Essential hypertension I10 [facility] [id number] [place] [address] 74691- 6387 Apr, Chronic pain G89.29 [facility] [address] [place] [address]- 8837 Apr, Bipolar I disorder, most recent episode (or current) mixed, moderate F31.62 [facility] [id number] [place] [address] 76337- 7911 Apr, [facility] [id number] [place] [address] 86838- 6612 Apr, [facility] [id number] [place] [address] 47124- 3494 Mar, Chronic pain G89.29 ; Headache, unspecified headache type R51 ; Neuropathy G62.9 ; Pain of right hip joint M25.551 and Essential hypertension I10 [facility] [id number] [place] [address] 68032- 6033 Mar, Chronic pain G89.29 [facility] [id number] [place] [address] 62179- 4012 Mar, Bipolar I disorder, most recent episode (or current) mixed, moderate F31.62 [facility] [id number] [place] [address] 17670- 0488 Feb, Bipolar I disorder, most recent episode (or current) mixed, moderate F31.62 and Insomnia, unspecified type G47.00 [facility] [address] [place] [address] 44760- 7187 Feb, Chronic pain G89.29 [facility] [id number] [place] [address] 75515- 8939 Feb, Bipolar I disorder, most recent episode (or current) mixed, moderate F31.62 [facility] [address] [place] [address] 45939- 9685 January, Bipolar I disorder, most recent episode (or current) mixed, moderate F31.62 [facility] [address] [place] [address] 45670- 6156 January, Chronic pain G89.29 [facility] [id number] [place] [address] 79048- 5779 January, Chronic pain G89.29 and Essential hypertension I10 [facility] [address] 60386- 6941 January, Bipolar I disorder, most recent episode (or current) mixed, moderate F31.62 [facility] [address] 75404- 5596 Dec, [facility] [id number] [place] [address] 29747- 8223 Dec, [facility] [address] 77023- 8013 Dec, [facility] [id number] [place] [address] 71361- 3523 Dec, [facility] [address] 85868- 1856 Nov, Reactive airway disease J45.909 [facility] [id number] [place] [address] 97573- 6023 Nov, [facility] [id number] [place] [address] 88582- 8746 Nov, [facility] [id number] [place] [address] 65356- 4855 Nov, [facility] [id number] [place] [address] 02075- 7888 Nov, [facility] [id number] [place] [address] 43164- 6334 Nov, Onychomycosis B35.1 ; Hammertoe M20.40 ; [place] or callus L84 and DM neuro manif type II E11.49 [facility] [address] [place] [address] 75777- 5707 15 Nov, 2015 Chronic pain G89.29 ; Leukocytosis D72.829 and Diabetes E11.9 [facility] [id number] [place] [address] 16158- 3721 Nov, [facility] [id number] [place] [address] 79823- 8739 Oct, Bronchitis J40 [facility] [id number] [place] [address] 71141- 5776 Oct, [facility] [address] 07817- 8428 Oct, [facility] [address] 16018- 4055 Oct, Mastoiditis, unspecified laterality H70.90 and Type 2 diabetes mellitus with complication E11.8 [facility] [id number] [place] [address] 98610- 2836 Sep, [facility] [address] 63154- 8380 Sep, Dysuria R30.0 ; Cough R05 ; Benign prostatic hyperplasia with lower urinary tract symptoms, unspecified morphology N40.1 ; Hypokalemia E87.6 and Eustachian tube dysfunction, unspecified laterality H69.80 [facility] [id number] [place] [address]- 6853 Sep, Moderate mixed bipolar I disorder F31.62 [facility] [id number] [place] [address] 88390- [address] Sep, Hypokalemia E87.6 [facility] [id number] [place] [address] [id number]- [address] Sep, [facility] [id number] [place] [address] 25509- [address]348 Sep, Upper respiratory tract infection, unspecified type J06.9 [facility] [id number] [place] [address] 10896- [address] Aug, [facility] [address] [place] [address] Aug, Dysuria R30.0 [facility] [id number] [place] [address]- [address] Aug, [facility] [id number] [address] Jul, [facility] [id number] [place] [address] [id number] 5395 Jul, [facility] [id number] [address] 8094 Jul, [facility] [id number] [place] [address] 619678- 8981 Jul, [facility] [id number] [place] [address] 03820- 7311 Jun, [facility] [id number] [place] [address] 70942- 5283 Jun, [facility] [address], [place] [address] 2855 Jun, [facility] [address], [place] [address] 3829 29 May, 2015 [facility] [address], [place] [address] 3591 May, Bipolar I disorder, most recent episode (or current) mixed, moderate 296.62 [facility] [address], [place] [address] 6563 16 May, 2015 [facility] [address], [place] [address] 8682 May, Bipolar I disorder, most recent episode (or current) mixed, moderate 296.62 and Major depressive disorder, recurrent episode, severe, specified as with psychotic behavior 296.34 [facility] [address], [place] [address] 9084 May, Bipolar I disorder, most recent episode (or current) mixed, moderate 296.62 [facility] [address], [place] [address] 7820 May, [facility] [id number] [place] [address] 62229- 8069 Apr, [facility] [id number] [place] [address] 55232- 7103 Apr, [facility] [id number] [place] [address] 74299- 8895 Apr, Unspecified disorder of kidney and ureter 593.9 and Diabetes mellitus type 2, uncontrolled 250.02 [facility] [id number] [place] [address] 81775- 3498 Apr, [facility] [id number] [place] [address] 82195- 4103 Apr, [facility] [id number] [place] [address] 32837- 0933 Apr, [facility] [id number] [place] [address] 50128- 0747 Apr, [facility] [id number] [place] [address] 53977- 9867 Apr, Diabetes mellitus type II, uncontrolled 250.02 [facility] [id number] [place] [address] 03084- 6464 Apr, [facility] [id number] [place] [address] 00788- 8055 Mar, [facility] [id number] [place] [address] 80736- 8697 Mar, [facility] [id number] [place] [address] 48203- 2530 Mar, [facility] [id number] [place] [address] 35548- 1347 Mar, Major depressive disorder, recurrent episode, severe, specified as with psychotic behavior 296.34 and Bipolar I disorder, most recent episode (or current) mixed, moderate 296.62 [facility] [id number] [place] [address] 95114- 9425 Mar, Diabetes 250.00 ; Anuria 788.5 ; Nausea and vomiting 787.01 and Diarrhea 787.91 [facility] [id number] [place] [address] 01411- 4639 Mar, Diabetes 250.00 [facility] [id number] [place] [address] 71653- 9169 Mar, [facility] [id number] [place] [address] 47186- 1566 Mar, Diabetes 250.00 [facility] [id number] [place] [address] 51434- 6562 Mar, [facility] [id number] [place] [address] 67871- 9042 Mar, [facility] [id number] [place] [address] 50821- 7051 Mar, [facility] [id number] [place] [address] 89496- 5351 Mar, [facility] [id number] [place] [address] 79395- 2548 Mar, Bipolar I disorder, most recent episode (or current) mixed, moderate 296.62 and Major depressive disorder, recurrent episode, severe, specified as with psychotic behavior 296.34 [facility] [id number] [place] [address] 50972- 1955 Mar, Magnesium deficiency 275.2 ; Hypokalemia 276.8 ; Nausea & vomiting 787.01 and Diabetes mellitus type 2, uncontrolled 250.02 [facility] [address], [place] [address]- 2706 Feb, [facility] [id number] [place] [address] 79312- 2140 Feb, Bipolar I disorder, most recent episode (or current) mixed, moderate 296.62 [facility] [id number] [place] [address] 01406- 9329 Feb, Nausea and vomiting 787.01 ; Left elbow pain 719.42 ; Anuria 788.5 and Diabetes 250.00 [facility] [id number] [place] [address] 76544- 4479 Feb, [facility] [address] 84784- 5221 Feb, Hypopotassemia 276.8 and Hypokalemia 276.8 [place] [address] 25559- 0384 Feb, Hypopotassemia 276.8 and Hypokalemia 276.8 [facility] [id number] [place] [address] 23108- 3174 Feb, Seborrheic keratoses 702.19 [facility] [id number] [place] [address] 25801- 3362 Feb, Hypopotassemia 276.8 and Low magnesium levels 275.2 [facility] [id number] [place] [address] 20057- 4643 January, [facility] [id number] [place] [address] 34389- 7503 January, [facility] [id number] [place] [address] 36982- 7733 January, [facility] [id number] [place] [address] 91879- 2332 January, Scalp lesion 709.9 [facility] [id number] [place] [address] 32743- 5152 January, [facility] [id number] [place] [address] 51693- 7350 Dec, Tear of medial cartilage or meniscus of knee, current 836.0 and 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 [facility] [address] [id number] [place] [address]- 6826 Dec, [facility] [address] [facility] [id number] [place] [address]- 7646 Dec, [facility] [address] [facility] [id number] [place] [address]- 8036 28 Dec, 2014 Squamous cell carcinoma, 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 [facility] [address] [id number] [place] [address] 2546 14 Dec, 2014 [facility] [address] [facility] [id number] [place] [address]- 4946 Dec, [facility] [address] [facility] [id number] [place] [address]- 9486 Nov, [facility] [address] [id number] [place] [address]- 7446 Nov, [facility] [address] [facility] [id number] [place] [address]- 0039 Nov, [facility] [address] [facility] [id number] [place] [address]- 6996 Nov, [facility] [address] [id number] [place] [address]- 5095 Nov, [facility] [address] [id number] [place] [address]- 8106 Nov, [facility] [address] [facility] [id number] [address] 2546 Nov, [facility] [address] [facility] [id number] [place] [address]- 4616 Nov, [facility] [address] [facility] [id number] [place] [address]- 2446 Nov, [facility] [id number], [place] [address]- 1678 Nov, [facility] [place] [facility] [address] [id number] [place] [address]- 3801 Nov, [facility] [place] [facility] [address] [id number] [place] [address]- 5571 Nov, [facility] [place] [facility] [address] [id number] [place] [address]- 2157 Oct, 2014 [facility] [place] [facility] [address] [id number] [place] [address]- 6063 Oct, 2014 [facility] [place] [facility] [address] [id number] [place] [address]- 8063 Oct, 2014 [facility] [place] [facility] [address] [id number] [place] [address]- 6270 Oct, 2014 [facility] [place] [facility] [address] [facility] [id number] [place] [address]- 7916 Oct, 2014 [facility] [place] [facility] [address] [id number] [place] [address]- 9134 Oct, 2014 [facility] [place] [facility] [address] [id number] [place] [address]- 2405 Oct, 2014 [facility] [place] [facility] [address] [facility] [id number] [place] [address]- 2676 Oct, [facility] [place] [facility] [address] [facility] [id number] [place] [address]- 0650 Oct, [facility] [place] [facility] [address] [facility] [id number] [place] [address]- 2044 Sep, [facility] [place] [facility] [address] [id number] [place] [address]- 7102 Sep, [facility] [place] [facility] [address] [facility] [id number] [place] [address]- 1608 Sep, [facility] [place] [facility] [address] [facility] [id number] [place] [address]- 1148 Sep, [facility] [place] [facility] [address] [id number] [place] [address]- 8686 Sep, [facility] [place] [facility] [address] [id number] [place] [address]- 7517 Sep, [facility] [place] [facility] [address] [id number] [place] [address]- 6606 Sep, [facility] [place] [facility] [address] [id number] [place] [address]- 4636 Sep, [facility] [place] [facility] [address] [id number] [place] [address]- 2746 Sep, [facility] [place] [facility] [address] [id number] [place] [address]- 5704 Sep, [facility] [place] [facility] [address] [id number] [place] [address]- 0024 Sep, [facility] [place] [facility] [address] [id number] [place] [address]- 5125 Sep, [facility] [place] [facility] [address] [id number] [place] [address]- 5685 Sep, [facility] [place] [facility] [address] [id number] [place] [address]- 8490 Sep, [facility] [place] [facility] [address] [id number] [place] [address]- 2511 Sep, [facility] [place] [facility] [address] [id number] [place] [address]- 7882 Sep, [facility] [place] [facility] [address] [id number] [place] [address]- 4539 Aug, [facility] [place] [facility] [address] [id number] [place] [address]- 4946 Aug, [facility] [place] [facility] [address] [id number] [place] [address]- 7436 Aug, [facility] [place] [facility] [address] [id number] [place] [address]- 7310 Aug, [facility] [address] [id number] [place] [address]- 3414 Aug, [facility] [address] [id number] [place] [address]- 2616 Aug, [facility] [address] [id number] [place] [address]- 0984 Aug, [facility] [address] [id number] [place] [address]- 7164 Aug, [facility] [address] [id number] [place] [address]- 1752 Aug, [facility] [address] [id number] [place] [address]- 4389 Aug, [facility] [address] [id number] [place] [address]- 6289 Aug, [facility] [address] [place] [id number] Aug, [facility] [address] [id number] [place] [address]- 5511 Aug, [facility] [address] [id number] [place] [address]- 1885 Aug, [facility] [address] [id number] [place] [address]- 5245 Aug, [facility] [place] [facility] [address] [id number] [place] [address]- 7996 Aug, [facility] [place] [facility] [address] [id number] [place] [address]- 4122 Aug, [facility] [place] [facility] [address] [id number] [place] [address]- 7036 Aug, [facility] [address] [id number] [place] [address]- 8210 Aug, [facility] [place] [facility] [address] [id number] [place] [address]- 0839 Aug, [facility] [place] [facility] [address] [id number] [place] [address]- 5499 Aug, [facility] [place] [facility] [address] [id number] [place] [address]- 5397 Aug, [facility] [place] [facility] [address] [id number] [place] 7401 Aug, [facility] [place] [facility] [address] [id number] [place] [address]- 9442 Aug, [facility] [place] [facility] [address] [id number] [place] [address]- 8139 Aug, [facility] [place] [facility] [address] [id number] [place] [address]- 4939 Aug, [facility] [place] [facility] [address] [id number] [place] [address]- 0407 Aug, [facility] [place] [facility] [address] [id number] [place] [address]- 7226 Aug, [facility] [place] [facility] [address] [id number] [place] [address]- 5381 Aug, [facility] [place] [facility] [address] [id number] [place] [address]- 7314 Aug, [facility] [place] [facility] [address] [id number] [place] [address]- 7359 Jul, [facility] [place] [facility] [address] [id number] [place] [address]- 8120 Jul, [facility] [place] [facility] [address] [id number] [place] [address]- 6909 Jul, [facility] [place] [facility] [address] [id number] [place] [address]- 2834 Jul, [facility] [place] [facility] [address] [id number] [place] [address]- 6465 Jul, [facility] [place] [facility] [address] [id number] [place] [address]- 4010 Jul, [facility] [place] [facility] [address] [id number] [place] [address]- 0247 Jul, [facility] [place] [facility] [address] [id number] [place] [address]- 1396 Jul, [facility] [place] [facility] [address] [id number] [place] [address]- 5827 Jul, [facility] [place] [facility] [address] [id number] [place] [address]- 9856 Jul, [facility] [place] [facility] [address] [id number] [place] 3546 Jun, [facility] [place] [facility] [address] [id number] [place] [address]- 0981 Jun, [facility] [place] [facility] [address] [id number] [place] [address]- 7352 Jun, [facility] [place] [facility] [address] [id number] [place] [address]- 3713 Jun, [facility] [place] [facility] [address] [id number] [place] [address]- 9100 Jun, [facility] [place] [facility] [address] [facility] [id number] [place] [address]- 6279 Jun, [facility] [place] [facility] [address] [id number] [place] [address]- 7707 Jun, [facility] [place] [facility] [address] [id number] [place] 0102 Jun, [facility] [place] [facility] [address] [id number] [place] [address]- 8152 Jun, [facility] [place] [facility] [address] [id number] [place] [address]- 0387 Jun, [facility] [place] [facility] [address] [id number] [place] 6493 May, [facility] [place] [facility] [address] [id number] [place] [address]- 1571 29 Sep, 2013 [facility] [place] [facility] [address] [id number] [place] [address]- 6776 26 Sep, 2013 [facility] [place] [facility] [address] [id number] [place] [address]- 4527 26 Sep, 2013 [facility] [place] [facility] [address] [id number] [place] [address]- 2541 17 Sep, 2013 [facility] [place] [facility] [address] [id number] [place] [address]- 8730 17 Sep, 2013 [facility] [place] [facility] [address] [id number] [place] [address]- 7781 15 Sep, 2013 [facility] [place] [facility] [address] [id number] [place] [address]- 2350 15 May, 2013 [facility] [place] [facility] [address] [id number] [place] [address]- 6474 15 Sep, 2013 [facility] [place] [facility] [address] [id number] [place] [address]- 1117 15 May, 2013 [facility] [place] [facility] [address] [id number] [place] [address]- 1471 10 May, 2013 [facility] [place] [facility] [address] [id number], [place] [address]- 2543 10 Sep, 2013 [facility] [place] [facility] [address] [id number], [place] [address]- 8078 09 Sep, 2013 [facility] [place] [facility] [address] [id number] [place] [address]- 2544 09 Sep, 2013 [facility] [place] [facility] [address] [id number] [place] [address]- 2543 04 Sep, 2013 [facility] [place] [facility] [address] [id number], [place] [address]- 7301 04 Sep, 2013 [facility] [place] [facility] [address] [id number], [place] [address]- 4401 Apr, [facility] [place] [facility] [address] [id number] [place] [address]- 0003 Apr, [facility] [place] [facility] [address] [id number] [place] [address]- 3869 Apr, [facility] [place] [facility] [address] [id number] [place] [address]- 0235 Apr, [facility] [place] [facility] [address] [id number] [place] [address]- 4214 Apr, [facility] [place] [facility] [address] [id number] [place] [address]- 2618 Apr, [facility] [place] [facility] [address] [id number] [place] [address]- 0232 Apr, [facility] [place] [facility] [address] [id number] [place] [address]- 9025 Apr, [facility] [place] [facility] [address] [id number] [place] [address]- 4643 Apr, [facility] [place] [facility] [address] [id number] [place] [address]- 3545 Apr, [facility] [place] [facility] [address] [id number] [place] [address]- 8244 Apr, [facility] [place] [facility] [address] [id number] [place] [address]- 0322 Apr, [facility] [place] [facility] [address] [id number] [place] [address]- 5032 Apr, [facility] [place] [facility] [address] [id number] [place] [address]- 3383 Apr, [facility] [place] [facility] [address] [id number] [place] [address]- 4757 Apr, [facility] [place] [facility] [address] [id number] [place] [address]- 8551 Mar, [facility] [place] [facility] [address] [id number] [place] [address]- 3137 Mar, 2013 [facility] [place] [facility] [address] [id number] [place] [address]- 5453 Mar, 2013 [facility] [place] [facility] [address] [id number] [place] [address]- 8242 Mar, 2013 [facility] [place] [facility] [address] [id number] [place] [address]- 0784 Mar, 2013 [facility] [place] [facility] [address] [id number] [place] [address] Mar, 2013 [facility] [place] [facility] [address] [id number] [place] [address] Mar, 2013 [facility] [place] [facility] [address] [id number] [place] [address] Mar, 2013 [facility] [place] [facility] [address] [id number] [place] [address] Mar, 2013 [facility] [place] [facility] [address] [id number] [place] [address] 2020 Mar, 2013 [facility] [place] [facility] [address] [id number] [place] [address] Mar, 2013 [facility] [place] [facility] [address] [id number] [place] [address] Mar, 2013 [facility] [place] [facility] [address] [id number] [place] [address] Mar, 2013 [facility] [place] [facility] [address] [id number] [place] [address] Mar, 2013 [facility] [place] [facility] [address] [id number] [place] [address]- [address] Mar, 2013 [facility] [place] [facility] [address] [id number] [place] [address] Mar, 2013 [facility] [place] [facility] [address] [id number] [place] [address] Mar, [facility] [place] [facility] [address] [id number] [place] [address] Mar, [facility] [place] [facility] [address] [id number] [place] [address]- [address] Feb, [facility] [place] [facility] [address] [id number] [place] [address] Feb, [facility] [place] [facility] [address] [id number] [place] [address] Feb, [facility] [place] [facility] [address] [id number] [place] [address] Feb, [facility] [place] [facility] [address] [id number] [place] [address] Feb, [facility] [place] [facility] [address] [id number] [place] [address] Feb, [facility] [place] [facility] [address] [id number] [place] [address] Feb, [facility] [place] [facility] [address] [id number] [place] [address] Feb, [facility] [place] [facility] [address] [id number] [place] [address] Feb, [facility] [place] [facility] [address] [id number], [place] [address] Feb, [facility] [place] [facility] [address] [id number], [place] [address] Feb, [facility] [place] [facility] [address] [id number] [place] [address] Feb, [facility] [place] [facility] [address] [id number] [place] [address] Feb, [facility] [place] [facility] [address] [id number] [place] [address]- [address] Feb, [facility] [place] [facility] [address] [id number] [place] [address] January, [facility] [address] [id number] [place] [address] January, [facility] [place] [facility] [address] [id number] [place] [address] January, [facility] [place] [facility] [address] [id number] [place] [address]- 84[address] January, [facility] [place] [facility] [address] [id number] [place] [address] 140[address] January, [facility] [place] [facility] [address] [id number] [place] [address] January, [facility] [place] [facility] [address] [id number] [place] [address] January, [facility] [address] [id number] [place] [address]- [address]36 January, [facility] [place] [facility] [address] [id number] [place] [address] January, [facility] [place] [facility] [address] [id number] [place] [address]- [address] January, [facility] [place] [facility] [address] [id number] [place] [address] January, [facility] [place] [facility] [address] [id number] [place] [address]- [address] January, [facility] [place] [facility] [address] [id number] [place] [address]- [address] January, [facility] [place] [facility] [address] [id number] [place] [address]- [address] January, [facility] [place] [facility] [address] [id number] [place] [address]- [address]98 Dec, [facility] [place] [facility] [address] [id number] [place] [address]- [address] Dec, [facility] [place] [facility] [address] [id number] [place] [address]- [address] Dec, [facility] [place] [facility] [address] [id number] [place] [address]- [address] Dec, [facility] [place] [facility] [address] [id number] [place] [address] Dec, [facility] [place] [facility] [address] [id number] [place] [address]- [address] Dec, [facility] [place] [facility] [address] [id number] [place] [address]- [address] Dec, [facility] [place] [facility] [address] [id number] [place] [address]- [address] Dec, [facility] [place] [facility] [address] [id number] [place] [address]- [address] Dec, [facility] [place] [facility] [address] [id number] [place] [address]- [address] Dec, [facility] [place] [facility] [address] [id number] [place] [address]- [address] Nov, [facility] [place] [facility] [address] [id number] [place] [address] Nov, [facility] [place] [facility] [address] [id number] [place] [address] 9798 Nov, [facility] [place] [facility] [address] [id number] [place] [address] 8815 Nov, [facility] [place] [facility] [address] [id number] [place] [address] 6[address] Nov, [facility] [place] [facility] [address] [id number] [place] [address] 8544 Nov, [facility] [place] [facility] [address] [id number] [place] [address] 8738 Nov, [facility] [place] [facility] [address] [id number] [place] [address] 2992 Nov, [facility] [place] [facility] [address] [id number] [place] [address]- 1596 Nov, [facility] [place] [facility] [address] [id number] [place] [address] 8676 Nov, [facility] [place] [facility] [address] [facility] [id number] [place] [address] 6175 Oct, [facility] [place] [facility] [address] [id number] [place] [address] 3905 Oct, [facility] [place] [facility] [address] [id number] [place] [address]- 3782 Oct, [facility] [place] [facility] [address] [facility] [id number] [place] [address]- 0645 Oct, [facility] [place] [facility] [address] [facility] [id number] [place] [address]- 6876 Oct, [facility] [place] [facility] [address] [facility] [id number] [place] [address]- 0804 Oct, [facility] [place] [facility] [address] [facility] [id number] [place] [address] 7264 Oct, [facility] [place] [facility] [address] [facility] [id number] [place] [address]- 2978 Oct, [facility] [place] [facility] [address] [facility] [id number] [place] [address]- 5994 Oct, [facility] [place] [facility] [address] [facility] [id number] [place] [address]- 4776 Oct, [facility] [place] [facility] [address] [facility] [id number] [place] [address]- 8222 Oct, [facility] [place] [facility] [address] [facility] [id number] [place] [address]- 8569 Oct, [facility] [place] [facility] [address] [facility] [id number] [place] [address]- 6098 Oct, [facility] [address] [id number] [place] [address]- 1713 Oct, [facility] [place] [facility] [address] [id number] [place] [address]- 4029 Sep, [facility] [place] [facility] [address] [id number] [place] [address]- 0934 Sep, [facility] [place] [facility] [address] [id number] [place] [address]- 3786 Sep, [facility] [place] [facility] [address] [id number] [place] [address]- 4359 Sep, [facility] [place] [facility] [address] [id number] [place] [address]- 1686 Sep, [facility] [place] [facility] [address] [id number] [place] [address]- 3962 Sep, [facility] [place] [facility] [address] [id number] [place] [address]- 3333 Sep, [facility] [place] [facility] [address] [id number] [place] [address]- 4846 Sep, [facility] [place] [facility] [address] [id number] [place] [address]- 3917 Sep, [facility] [place] [facility] [address] [id number] [place] [address]- 2398 Sep, [facility] [place] [facility] [address] [id number] [address] 6[address] Aug, [facility] [place] [facility] [address] [id number] [place] [address]- 5013 Aug, [facility] [place] [facility] [address] [id number] [place] [address]- 8083 Jul, [facility] [place] [facility] [address] [id number] [place] [address]- 3018 Jul, [facility] [place] [facility] [address] [id number] [place] [address]- 4708 13 Jul, 2013 [facility] [place] [facility] [address] [id number] [place] [address]- 0771 13 Jul, 2013 [facility] [place] [facility] [address] [id number] [place] [address]- 0627 Jul, [facility] [place] [facility] [address] [id number] [place] [address]- 6756 Jul, [facility] [place] [facility] [address] [id number] [place] [address]- 7505 Jul, [facility] [place] [facility] [address] [id number] [place] [address]- 5516 Jul, [facility] [place] [facility] [address] [id number] [place] [address]- 2719 Jul, [facility] [place] [facility] [address] [id number] [place] [address]- 2707 Jul, [facility] [place] [facility] [address] [id number] [place] [address]- 1461 Jul, [facility] [place] [facility] [address] [id number] [place] [address]- 0843 Jul, [facility] [place] [facility] [address] [facility] [id number] [place] [address]- 4869 Jul, [facility] [place] [facility] [address] [id number] [place] [address]- 6465 Jul, [facility] [place] [facility] [address] [id number], [place] [address]- 4938 Jul, [facility] [place] [facility] [address] [id number] [place] [address]- 3820 Jul, [facility] [place] [facility] [address] [id number] [place] [address]- 7814 Jul, [facility] [place] [facility] [address] [id number], [place] [address] 7316 Jul, [facility] [place] [facility] [address] [id number] [place] [address]- 1508 Jul, 2012 [facility] [place] [facility] [address] [id number] [place] [address]- 4654 Jun, 2012 [facility] [place] [facility] [address] [id number] [place] [address]- 0032 Jun, 2012 [facility] [place] [facility] [address] [id number] [place] [address]- 4716 Jun, 2012 [facility] [place] [facility] [address] [id number] [place] [address]- 5169 Jun, 2012 [facility] [place] [facility] [address] [id number] [place] [address]- 5016 Jun, 2012 [facility] [place] [facility] [address] [id number] [place] [address] Jun, 2012 [facility] [place] [facility] [address] [id number] [place] [address]- 3708 Jun, 2012 [facility] [place] [facility] [address] [id number] [place] [address]- 9266 Jun, [facility] [place] [facility] [address] [id number] [place] [address]- 3970 Jun, [facility] [place] [facility] [address] [id number] [place] [address]- 7242 Jun, [facility] [place] [facility] [address] [id number] [place] [address]- 8060 Jun, [facility] [place] [facility] [address] [id number] [place] [address] May, 2012 [facility] [place] [facility] [address] [id number] [place] [address]- 1052 25 May, 2012 [facility] [place] [facility] [address] [id number] [place] [address]- 3886 19 May, 2012 [facility] [place] [facility] [address] [id number] [place] [address]- 0311 17 May, 2013 [facility] [place] [facility] [address] [id number] [place] [address]- 2130 11 May, 2013 [facility] [place] [facility] [address] [id number] [place] [address]- 7442 10 May, 2013 [facility] [place] [facility] [address] [id number] [place] [address]- 6240 May, [facility] [place] [facility] [address] [id number] [place] [address]- 0241 05 May, 2013 [facility] [place] [facility] [address] [id number] [place] [address]- 3870 Apr, [facility] [place] [facility] [address] [id number] [place] [address]- 3423 Apr, [facility] [place] [facility] [address] [id number] [place] [address]- 8596 Apr, [facility] [place] [facility] [address] [id number] [place] [address]- 7106 Apr, [facility] [place] [facility] [address] [id number] [place] [address]- 4523 Apr, [facility] [place] [facility] [address] [id number] [place] [address]- 2583 Mar, [facility] [place] [facility] [address] [id number] [place] [address]- 5284 Mar, [facility] [place] [facility] [address] [id number] [place] [address]- 6648 Mar, [facility] [place] [facility] [address] [id number] [place] [address]- 1008 Mar, [facility] [place] [facility] [address] [id number] [place] [address]- 3367 Mar, [facility] [place] [facility] [address] [id number] [place] [address]- 3696 Mar, [facility] [place] [facility] [address] [id number] [place] [address]- 4918 Mar, [facility] [address] [id number] [place] [address]- 1900 Mar, [facility] [address] [id number] [place] [address]- 1916 Feb, [facility] [address] [id number] [place] [address]- 8141 Feb, [facility] [address] [id number] [place] [address]- 0991 January, [facility] [address] [id number] [place] [address]- 8261 January, [facility] [address] [id number] [place] [address]- 7611 Dec, [facility] [address] [id number] [place] [address]- 0845 Dec, [facility] [address] [id number] [place] [address]- 3272 Nov, [facility] [address] [id number] [place] [address]- 4090 Nov, [facility] [address] [id number] [place] [address]- 8295 Nov, [facility] [address] [id number] [place] [address]- 1702 Nov, [facility] [address] [id number] [place] [address]- 2572 Oct, [facility] [address] [id number] [place] [address]- 2036 Oct, [facility] [address] [id number] [place] [address]- 1888 Oct, [facility] [address] [id number] [place] [address]- 0636 Oct, [facility] [address] [id number] [place] [address]- 5288 16 Oct, 2012 [facility] [place] [facility] [address] [id number] [place] [address]- 7516 14 Oct, 2012 [facility] [place] [facility] [address] [id number] [place] [address]- 0372 08 Oct, 2012 [facility] [place] [facility] [address] [id number] [place] [address]- 9084 07 Oct, 2012 [facility] [place] [facility] [address] [id number] [place] [address]- 3160 Oct, [facility] [place] [facility] [address] [id number] [place] [address]- 8163 Sep, [facility] [place] [facility] [address] [id number] [place] [address]- 0982 Sep, [facility] [place] [facility] [address] [id number] [place] [address]- 2416 Sep, [facility] [place] [facility] [address] [id number] [place] [address]- 0431 Sep, [facility] [place] [facility] [address] [id number] [place] [address]- 4315 Sep, [facility] [place] [facility] [address] [id number] [place] [address]- 4055 Sep, [facility] [place] [facility] [address] [id number] [place] [address]- 4390 Sep, [facility] [place] [facility] [address] [id number] [place] [address]- 1384 Sep, [facility] [place] [facility] [address] [id number] [place] [address]- 2900 Aug, [facility] [place] [facility] [address] [id number] [place] [address]- 7547 Aug, [facility] [place] [facility] [address] [id number] [place] [address]- 0160 Aug, [facility] [address] [id number] [place] [address]- 8672 Aug, [facility] [place] [facility] [address] [id number] [place] [address]- 5704 Aug, [facility] [address] [id number] [place] [address]- 9273 Aug, [facility] [place] [facility] [address] [id number] [place] [address]- 9569 Aug, [facility] [address] [id number] [place] [address], [place] [address]- 8782 Aug, [facility] [place] [facility] [address] [id number] [place] [address]- 0764 Jul, [facility] [place] [facility] [address] [id number] [place] [address]- 1882 Jul, [facility] [place] [facility] [address] [id number] [place] [address]- 6070 Jul, [facility] [place] [facility] [address] [facility] [id number] [place] [address]- 9564 Jul, [facility] [address] [facility] [id number] [place] [address]- 7931 Jul, [facility] [place] [facility] [address] [facility] [id number] [place] [address]- 1232 Jul, [facility] [place] [facility] [address] [id number] [place] [address]- 7793 Jun, [facility] [place] [facility] [address] [id number] [place] [address]- 3311 Jun, [facility] [place] [facility] [address] [facility] [id number] [place] [address]- 5693 Jun, [facility] [place] [facility] [address] [facility] [id number] [place] [address]- 4179 Jun, [facility] [place] [facility] [address] [id number] [place] [address]- 2789 Jun, [facility] [place] [facility] [address] [id number] [place] [address]- 6734 Jun, [facility] [place] [facility] [address] [id number] [place] [address]- 5878 Jun, [facility] [place] [facility] [address] [id number] [place] [address]- 5020 Jun, [facility] [place] [facility] [address] [id number] [place] [address]- 4181 Jun, [facility] [place] [facility] [address] [id number] [place] [address]- 0678 26 May, 2012 [facility] [place] [facility] [address] [id number] [place] [address]- 2730 24 May, 2012 [facility] [place] [facility] [address] [id number] [place] [address]- 9838 18 May, 2012 [facility] [place] [facility] [address] [id number] [place] [address]- 7763 30 Apr, 2012 [facility] [place] [facility] [address] [id number] [place] [address]- 5109 29 Apr, 2012 [facility] [place] [facility] [address] [id number], [place] [address]- 0560 Apr, [facility] [place] [facility] [address] [id number], [place] [address]- 0031 14 Apr, 2012 [facility] [place] [facility] [address] [id number] [place] [address]- 9423 Apr, [facility] [place] [facility] [address] [id number], [place] [address]- 7425 Apr, [facility] [place] [facility] [address] [id number], [place] [address]- 1272 Mar, [facility] [place] [facility] [address] [id number], [place] [address]- 5527 Mar, [facility] [address] [id number] [place] [address]- 8881 Mar, [facility] [place] [facility] [address] [id number] [place] [address]- 0546 Mar, [facility] [place] [facility] [address] [id number] [place] [address]- 2739 Feb, [facility] [place] [facility] [address] [id number] [place] [address]- 2684 Feb, [facility] [place] [facility] [address] [id number] [place] [address]- 7403 Feb, [facility] [place] [facility] [address] [id number] [place] [address]- 9879 Feb, [facility] [address] [id number] [place] [address]- 1076 Feb, [facility] [place] [facility] [address] [id number] [place] [address]- 8891 January, [facility] [place] [facility] [address] [id number] [place] [address]- 8582 January, [facility] [place] [facility] [address] [id number] [place] [address]- 9127 January, [facility] [place] [facility] [address] [id number] [place] [address]- 7014 January, [facility] [place] [facility] [address] [id number] [place] [address]- 1267 January, [facility] [place] [facility] [address] [id number] [place] [address]- 6399 January, [facility] [place] [facility] [address] [id number] [place] [address]- 7181 Dec, [facility] [place] [facility] [address] [id number] [place] [address]- 4606 Dec, [facility] [place] [facility] [address] [id number] [place] [address]- 9514 17 Dec, 2011 [facility] [place] [facility] [address] [id number] [place] [address]- 8684 09 Dec, 2011 [facility] [place] [facility] [address] [id number] [place] [address]- 9602 06 Dec, 2011 [facility] [place] [facility] [address] [id number] [place] [address]- 9071 27 Nov, 2011 [facility] [place] [facility] [address] [id number] [place] [address]- 5411 14 Nov, 2011 [facility] [place] [facility] [address] [id number] [place] [address]- 4392 Nov, [facility] [place] [facility] [address] [facility] [id number] [place] [address]- 4297 07 Nov, 2011 [facility] [place] [facility] [address] [id number] [place] [address]- 1986 29 Oct, 2011 [facility] [place] [facility] [address] [id number] [place] [address]- 7431 28 Oct, 2011 [facility] [place] [facility] [address] [id number] [place] [address]- 5551 24 Oct, 2011 [facility] [place] [facility] [address] [id number] [place] [address]- 9268 13 Oct, 2011 [facility] [place] [facility] [address] [id number] [place] [address]- 3425 08 Oct, 2011 [facility] [place] [facility] [address] [id number] [place] [address]- 1996 Sep, [facility] [place] [facility] [address] [id number] [place] [address]- 9911 30 Sep, 2011 [facility] [place] [facility] [address] [id number] [place] [address]- 1071 12 Sep, 2011 [facility] [place] [facility] [address] [id number] [place] [address]- 2515 Sep, [facility] [place] [facility] [address] [id number] [place] [address]- 7246 Sep, [facility] [place] [facility] [address] [id number] [place] [address]- 0853 Sep, [facility] [place] [facility] [address] [id number] [place] [address]- 3974 Aug, [facility] [place] [facility] [address] [id number] [place] [address]- 2032 Aug, [facility] [place] [facility] [address] [id number] [place] [address] Aug, [facility] [place] [facility] [address] [id number] [place] [address] Jul, [facility] [place] [facility] [address] [id number] [place] [address] Jul, [facility] [place] [facility] [address] [id number] [place] [address] Jul, [facility] [place] [facility] [address] [id number] [place] [address] Jul, [facility] [place] [facility] [address] [id number] [place] [address] Jun, [facility] [place] [facility] [address] [id number] [place] [address] Jun, [facility] [place] [facility] [address] [id number], [place] [address] 18 Jun, 2011 [facility] [place] [facility] [address] [id number] [place] [address] Jun, [facility] [place] [facility] [address] [id number] [place] [address] Jun, [facility] [place] [facility] [address] [id number] [place] [address] 6[address] Jun, [facility] [place] [facility] [address] [id number] [place] [address] 11 Mar, 2011 [facility] [address] [id number] [place] [address] 18 Dec, 2010 [facility] [address] [id number] [place] [address]46 11 Dec, 2010 [facility] [address] [id number] [place] [address] 18 Nov, 2010 [facility] [address] [id number] [place] [address] 16 Nov, 2010 [facility] [address] [id number] [place] [address] 8570 10 Sep, 2010 [facility] [address] [id number] [place] [address] 31 Aug, 2010 [facility] [address] [id number] [place] [address] 29 Aug, 2010 [facility] [address] [id number] [place] [address] 9264 29 Aug, 2010 [facility] [address] [id number] [place] [address] 29 Aug, 2010 [facility] [address] [id number] [place] [address] 404[address] 27 Aug, 2010 [facility] [address] [id number] [place] [address] 2546 14 Aug, 2010 [facility] [address] [id number] [place] [address] 2546 08 Aug, 2010 [facility] [address] [id number] [place] [address] 2546 08 Aug, 2010 [facility] [address] [id number] [place] [address] 2546 07 Aug, 2010 [facility] [address] [id number] [place] [address] Aug, [facility] [place] [facility] [address] [id number] [place] [address] 8[address] Aug, [facility] [place] [facility] [address] [id number] [place] [address] Aug, [facility] [place] [facility] [address] [id number] [place] [address] 2869 Jul, [facility] [place] [facility] [address] [id number] [place] [address]28 Jul, [facility] [place] [facility] [address] [id number] [place] [address] Jul, [facility] [place] [facility] [address] [id number] [place] [address] 8435 Jul, [facility] [place] [facility] [address] [id number] [place] [address]228 Jul, [facility] [place] [facility] [address] [id number], [place] [address] Jul, [facility] [place] [facility] [address] [id number] [place] [address] Jun, [facility] [place] [facility] [address] [facility] [id number], [place] [address] Jun, [facility] [place] [facility] [address] [id number], [place] [address] Jun, [facility] [place] [facility] [address] [id number], [place] [address]65 Jun, [facility] [place] [facility] [address] [id number], [place] [address] Apr, [facility] [place] [facility] [address] [id number], [place] [address] Mar, [facility] [place] [facility] [address] [id number], [place] [address] Feb, [facility] [place] [facility] [address] [id number], [place] [address] January, [facility] [place] [facility] [address] [facility] [id number], [place] [address]- [address] 15 Dec, 2009 [facility] [place] [facility] [address] [facility] [id number], [place] [address] 18[address] Nov, [facility] [place] [facility] [address] [facility] [id number], [place] [address]- [address] 31 Aug, 2009 [facility] [place] [facility] [address] [facility] [id number], [place] [address] 79[address] Aug, [facility] [place] [facility] [address] [facility] [id number] [place] [address] Aug, [facility] [place] [facility] [address] [facility] [id number], [place] [address]8 Jul, [facility] [place] [facility] [id number] [place] [address]- 5462 Jul, [facility] [place] [facility] [address] [facility] [id number], [place] [address] Jul, [facility] [place] [facility] [address] [id number], [place] [address] 30 Jun, 2009 [facility] [place] [facility] [address] [id number], [place] [address] 29 Jun, 2009 [facility] [place] [facility] [address] [facility] [id number], [place] [address] 8229 Jun, [facility] [place] [facility] [address] [facility] [id number], [place] [address]- 3316 Jun, [facility] [place] [facility] [address] [facility] [id number], [place] [address] 6682 Jun, [facility] [place] [facility] [address] [facility] [id number], [place] [address]- 9848 Jun, [facility] [place] [facility] [address] [facility] [id number], [place] [address]- 9776 Apr, [facility] [place] [facility] [address] [facility] [id number] [place] [address]- 5342 Apr, [facility] [address] [facility] [id number], [place] [address] Feb, [facility] [address] [facility] [id number], [place] [address]- 9536 January, [facility] [address] [facility] [id number], [place] [address]- 6[address] Dec, IMMUNIZATIONS No Known Immunizations SOCIAL HISTORY Never Assessed REASON FOR VISIT Portable Oxygen PLAN OF CARE VITAL SIGNS MEDICATIONS Unknown [...] obesity Medical History skin cancer-basal cell R faith (removed) Medical History Arthritis Medical History degenerative [...] tunnel release (Left) 2000 Surgical History EGD ([facility]) 2009 Surgical History colonoscopy 2009 ([facility]), 2013 ([place]) Surgical History heart 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 04/2014 Surgical History carotid US 05/2014 Surgical History resection of skin cancer from Right faith Surgical History Biopsy of Lung Bilateral/Left lung lymph node 09/2016 Surgical History Bone Marrow Biopsy Surgical History port in the right chest wall 12/2016 Hospitalization History [facility] low potassium, low magnesium, chest painina 01/2015 Hospitalization History inability to urinate 09/16/15 Hospitalization History [facility] early Hospitalization History hyperkalemia 10/2017 Hospitalization History fluid in lung
--- OUTSIDE RECORDS SUMMARY | 2018-08-08 12:56 | XMS REPORT ---
Author Author ROSELINE LUIS Organization [facility] Address [address] [place] [address] Care Team Providers Care Manager Project Name Role Phone ROSELINE LUIS Unavailable PROBLEMS Type Condition ICD9-CM Code RCP43-FZ Code Onset Dates Condition Status SNOMED Code Problem Chronic lymphocytic leukemia C91.10 Active 89702593 Problem Insomnia, unspecified type G47.00 Active 058554096 Problem Lymphocytosis D72.820 Active 07468383 Problem Anxiety F41.9 Active 30349602 Problem Eye exam abnormal R93.8 Active 713227927 Problem Morbid obesity E66.01 Active 827258040 Problem Diabetic polyneuropathy associated with type 2 diabetes mellitus E11.42 Active 49868713 Problem Essential hypertension I10 Active 83910806 Problem Falling R29.6 Active 281221556 Problem 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 Active 940852425 Problem Cough R05 Active 40617921 Problem Dysuria R30.0 Active 19047090 Problem Eustachian tube dysfunction, unspecified laterality H69.80 Active 25556198 Problem Bilateral primary osteoarthritis of knee M17.0 Active 559785286 Problem Polyneuropathy associated with underlying disease G63 Active 153933066 Problem Anemia of chronic illness D63.8 Active 171220976 Problem Retinal edema H35.81 Active 2034764 Problem DM neuro manif type II E11.49 Active 12248104 Problem Diabetes E11.9 Active 54598050 Problem Hypokalemia E87.6 Active 01046544 Problem Benign prostatic hyperplasia with lower urinary tract symptoms, unspecified morphology N40.1 Active 423307843 Problem Reactive airway disease J45.909 Active 852189203209 Problem Bipolar I disorder, most recent episode (or current) mixed, moderate F31.62 Active 91327452 Problem Chronic pain G89.29 Active 60054374 Problem Leukocytosis D72.829 Active 171738440 ALLERGIES No Information ENCOUNTERS Encounter Location Date Diagnosis [facility] [address] [address] Mar, [facility] [id number] [place] [address] 95524- 0533 Feb, [facility] [id number] [place] [address] 17751- 9834 January, Chronic pain G89.29 [facility] [id number] [place] [address] 89077- 9650 January, Bipolar I disorder, most recent episode (or current) mixed, moderate F31.62 [facility] [id number] [place] [address] 14442- 1808 January, Bipolar I disorder, most recent episode (or current) mixed, moderate F31.62 [facility] [id number] [place] [address] 69217- 9316 Dec, Bipolar I disorder, most recent episode (or current) mixed, moderate F31.62 and BMI 50.0-59.9, adult Z68.43 [facility] [id number] [place] [address] 06122- 9900 Dec, Bipolar I disorder, most recent episode (or current) mixed, moderate F31.62 [facility] [id number] [place] [address] 94531- 6941 Dec, Chronic pain G89.29 [facility] [id number] [place] [address] 81259- 6483 Dec, DM neuro manif type II E11.49 ; Right flank pain R10.9 ; 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 ; Encounter for medication monitoring Z51.81 and BMI 50.0-59.9, adult Z68.43 [facility] [address] [place] [address] 64499- 3500 Dec, Bipolar I disorder, most recent episode (or current) mixed, moderate F31.62 [facility] [id number] [place] [address] 59530- 1738 Nov, Bipolar I disorder, most recent episode (or current) mixed, moderate F31.62 [facility] [id number] [place] [address] 684565- 7009 Nov, Chronic pain G89.29 [facility] [id number] [place] [address] 82058- 8240 Nov, Bipolar I disorder, most recent episode (or current) mixed, moderate F31.62 [facility] [id number] [place] [address] 06667- 1177 Nov, Hypokalemia E87.6 [facility] [address] 69740- 0112 Nov, Bipolar I disorder, most recent episode (or current) mixed, moderate F31.62 [facility] [id number] [place] [address] 18479- 6465 Oct, Chronic pain G89.29 [facility] [id number] [place] [address] 53474- 8129 Oct, BMI 50.0-59.9, adult Z68.43 and Bipolar I disorder, most recent episode (or current) mixed, moderate F31.62 [facility] [id number] [place] [address] 78630- 7244 Oct, Bipolar I disorder, most recent episode (or current) mixed, moderate F31.62 [facility] [id number] [place] [address] 53330- 1030 Oct, [facility] [address] 40532- 9236 Oct, Hypokalemia E87.6 [facility] [id number] [place] [address] 11311- 8626 Oct, DM neuro manif type II E11.49 [facility] [address] 24200- 5954 Oct, Bipolar I disorder, most recent episode (or current) mixed, moderate F31.62 [facility] [address] 84528- 7575 Oct, Bipolar I disorder, most recent episode (or current) mixed, moderate F31.62 [facility] [address] 85140- 1625 14 Oct, 2017 Hyperkalemia E87.5 ; Falling R29.6 ; BMI 50.0-59.9, adult Z68.43 and Acute left ankle pain M25.572 [facility] [address] 266379- 1020 08 Oct, 2017 DM neuro manif type II E11.49 [facility] [address] 03468- 1870 Oct, [facility] [address] 75724- 0832 Sep, Chronic pain G89.29 [facility] [address] 58367- 9497 Sep, [facility] [address] 13808- 6417 Sep, Bilateral primary osteoarthritis of knee M17.0 [facility] [address] 15538- 3965 Sep, Generalized edema R60.1 [facility] [address] 08853- 9354 Sep, Bipolar I disorder, most recent episode (or current) mixed, moderate F31.62 [facility] [address] 96809- 5934 Sep, Hypoxia R09.02 ; Other hypervolemia E87.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 ; Anemia of chronic illness D63.8 and BMI 50.0- 59.9, adult Z68.43 [facility] [id number] [place] [address] 85092- 2436 Sep, [facility] [id number] [place] [address] 39275- 8194 Sep, Bipolar I disorder, most recent episode (or current) mixed, moderate F31.62 [facility] [id number] [place] [address] 93865- 8606 Aug, Chronic pain G89.29 [facility] [address] 13721- 7431 Aug, Generalized edema R60.1 [facility] [id number] [place] [address] 43521- 6003 Aug, [facility] [id number] [place] [address] 86890- 2636 Aug, [facility] [id number] [place] [address] 17922- 6821 Aug, Bipolar I disorder, most recent episode (or current) mixed, moderate F31.62 [facility] [id number] [place] [address] 23098- 0981 Aug, Bipolar I disorder, most recent episode (or current) mixed, moderate F31.62 [facility] [id number] [place] [address] 95932- 8395 Aug, Chronic pain G89.29 [facility] [id number] [place] [address] 62948- 8705 Jul, Bipolar I disorder, most recent episode (or current) mixed, moderate F31.62 [facility] [id number] [place] [address] 52844- 0721 Jul, Bipolar I disorder, most recent episode (or current) mixed, moderate F31.62 and BMI 60.0-69.9, adult Z68.44 [facility] [address] [place] [address] 56331- 3420 16 Jul, 2017 Bipolar I disorder, most recent episode (or current) mixed, moderate F31.62 [facility] [address] [place] [address] 04683- 2974 06 Jul, 2017 Chronic pain G89.29 [facility] [id number] [place] [address] 170672- 3515 Jul, Bipolar I disorder, most recent episode (or current) mixed, moderate F31.62 [facility] [id number] [place] [address] 670337- 2791 Jun, Polyneuropathy associated with underlying disease G63 and Diabetes E11.9 [facility] [id number] [place] [address] 17451- 9850 Jun, Bipolar I disorder, most recent episode (or current) mixed, moderate F31.62 [facility] [address] [place] [address] 60858- 8020 Jun, Chronic pain G89.29 [facility] [id number] [place] [address] 45311- 8485 27 May, 2017 Bipolar I disorder, most recent episode (or current) mixed, moderate F31.62 [facility] [address] [place] [address] 65702- 1984 May, Bipolar I disorder, most recent episode (or current) mixed, moderate F31.62 [facility] [address] [place] [address] 59141- 5953 20 May, 2017 Diabetic polyneuropathy associated with type 2 diabetes mellitus E11.42 [facility] [address] [place] [address] 72672- 1248 18 May, 2017 Bipolar I disorder, most recent episode (or current) mixed, moderate F31.62 [facility] [address] [place] [address] 60832- 8366 13 May, 2017 Bipolar I disorder, most recent episode (or current) mixed, moderate F31.62 [facility] [id number] [place] [address] 76063- 2139 May, Chronic pain G89.29 [facility] [id number] [place] [address] 85880- 3996 Apr, Bipolar I disorder, most recent episode (or current) mixed, moderate F31.62 [facility] [address] 70398- 6077 Apr, [facility] [address] 999826- 5620 Apr, Chronic pain G89.29 and DM neuro manif type II E11.49 [facility] [address] 90058- 7633 Apr, [facility] [address] 08466- 1085 Apr, Bipolar I disorder, most recent episode (or current) mixed, moderate F31.62 [facility] [id number] [place] [address] 07069- 9555 Apr, Chronic pain G89.29 [facility] [id number] [place] [address] 90472- 4520 Apr, Iliotibial band syndrome, left M76.32 [facility] [id number] [place] [address] 97118- 0213 Apr, Bipolar I disorder, most recent episode (or current) mixed, moderate F31.62 [facility] [id number] [place] [address] 49762- 9553 Mar, Bipolar I disorder, most recent episode (or current) mixed, moderate F31.62 [facility] [id number] [place] [address] 87641- 4502 Mar, Bipolar I disorder, most recent episode (or current) mixed, moderate F31.62 [facility] [address], [place] [address]- 2123 Mar, [facility] [id number] [place] [address] 27480- 8010 Mar, Bipolar I disorder, most recent episode (or current) mixed, moderate F31.62 [facility] [id number] [place] [address] 36479- 5730 Mar, Chronic pain G89.29 [facility] [id number] [place] [address] 68138- 4040 Mar, Bipolar I disorder, most recent episode (or current) mixed, moderate F31.62 [facility] [address] [place] [address] 78983- 5940 Mar, Bipolar I disorder, most recent episode (or current) mixed, moderate F31.62 [facility] [id number] [place] [address] 23697- 6428 Mar, Acute pain of left knee M25.562 ; Left hip pain M25.552 ; Generalized edema R60.1 and Tongue swelling R22.0 [facility] [address] [place] [address] 58980- 7379 Mar, [facility] [id number] [place] [address] 61432- 3989 Feb, Chronic pain G89.29 [facility] [address] [place] [address] 20040- 1687 Feb, Diabetes E11.9 [facility] [address] [place] [address] 99653- 0115 January, Chronic pain G89.29 [facility] [id number] [place] [address] 73348- 5750 January, [facility] [id number] [place] [address] 72815- 5789 January, Bipolar I disorder, most recent episode (or current) mixed, moderate F31.62 [facility] [address], [place] [address]- 4440 Dec, Bipolar I disorder, most recent episode (or current) mixed, moderate F31.62 [facility] [address], [place] [address]- 6728 Dec, Chronic pain G89.29 [facility] [id number] [place] [address] 49716- 0705 Dec, Bipolar I disorder, most recent episode (or current) mixed, moderate F31.62 [facility] [id number] [place] [address] 794204- 9094 Dec, Diabetes E11.9 ; Essential hypertension I10 ; Chronic pain G89.29 and Morbid obesity E66.01 [facility] [id number] [place] [address] 13387- 4349 Dec, [facility] [id number] [place] [address] 88561- 1299 Dec, Bipolar I disorder, most recent episode (or current) mixed, moderate F31.62 [facility] [address] [place] [address] 96487- 1898 Dec, Bipolar I disorder, most recent episode (or current) mixed, moderate F31.62 [facility] [address] [place] [address] 02169- 4540 Nov, Chronic pain G89.29 [facility] [address] [place] [address] 02671- 5669 Nov, Bipolar I disorder, most recent episode (or current) mixed, moderate F31.62 [facility] [address] [place] [address] 92990- 6232 Nov, [facility] [address], [place] [address]- 4334 Nov, Bipolar I disorder, most recent episode (or current) mixed, moderate F31.62 [facility] [address], [place] [address]- 4501 Nov, Bipolar I disorder, most recent episode (or current) mixed, moderate F31.62 [facility] [address], [place] [address]- 2566 Nov, [facility] [address] [place] [address] 91037- 5505 Nov, [facility] [address], [place] [address]- 9393 Nov, [facility] [id number] [place] [address] 93431- 3313 Oct, Chronic pain G89.29 [facility] [address] [place] [address] 67095- 3076 Oct, Bipolar I disorder, most recent episode (or current) mixed, moderate F31.62 [facility] [address], [place] [address]- 5924 Oct, [facility] [id number] [place] [address] 09495- 0403 Oct, Chronic pain G89.29 ; Diabetes E11.9 ; Anxiety F41.9 and 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 [facility] [address], [place] [address]- 2788 Oct, [facility] [address] [address]- 2801 06 Oct, 2016 Diabetes E11.9 [facility] [address], [place] [address]- 4637 Oct, Bipolar I disorder, most recent episode (or current) mixed, moderate F31.62 [facility] [address], [place] [address]- 8081 Sep, Chronic pain G89.29 [facility] [address], [place] [address]- 1054 Sep, Chronic pain G89.29 [facility] [id number] [place] [address] 70686- 5806 Aug, Chronic pain G89.29 [facility] [address] [place] [address] 70006- 5054 Jul, [facility] [id number] [place] [address] 11502- 8550 Jul, Diabetes E11.9 [facility] [id number] [place] [address] 68950- 2288 Jul, Chronic pain G89.29 [facility] [address] [place] [address] 06292- 2907 Jul, Bipolar I disorder, most recent episode (or current) mixed, moderate F31.62 [facility] [address] [place] [address] 58417- 7545 Jun, Bipolar I disorder, most recent episode (or current) mixed, moderate F31.62 [facility] [address] [place] [address] 43396- 0511 Jun, [facility] [address] [place] [address] 58511- 3852 Jun, Bipolar I disorder, most recent episode (or current) mixed, moderate F31.62 [facility] [address], [place] [address]- 5958 30 May, 2016 Insomnia, unspecified type G47.00 [facility] [id number] [place] [address] 14474- 9451 22 May, 2016 Bipolar I disorder, most recent episode (or current) mixed, moderate F31.62 [facility] [address], [place] [address]- 1269 14 May, 2016 [facility] [address] [address]- 9015 May, Bipolar I disorder, most recent episode (or current) mixed, moderate F31.62 [facility] [id number] [place] [address] 88255- 6447 May, Diabetes E11.9 and Essential hypertension I10 [facility] [address] [place] [address] 47267- 2398 Apr, Chronic pain G89.29 [facility] [address] [place] [address] 02028- 5702 Apr, Bipolar I disorder, most recent episode (or current) mixed, moderate F31.62 [facility] [id number] [place] [address] 37122- 2676 Apr, [facility] [id number] [place] [address] 49758- 0312 Apr, [facility] [address] [place] [address] 39251- 5475 Mar, Chronic pain G89.29 ; Headache, unspecified headache type R51 ; Neuropathy G62.9 ; Pain of right hip joint M25.551 and Essential hypertension I10 [facility] [address] [place] [address] 72624- 4879 Mar, Chronic pain G89.29 [facility] [id number] [place] [address] 11098- 2874 Mar, Bipolar I disorder, most recent episode (or current) mixed, moderate F31.62 [facility] [id number] [place] [address] 22382- 2526 Feb, Bipolar I disorder, most recent episode (or current) mixed, moderate F31.62 and Insomnia, unspecified type G47.00 [facility] [address] [place] [address] 55429- 1457 Feb, Chronic pain G89.29 [facility] [address] [place] [address]- 7743 Feb, Bipolar I disorder, most recent episode (or current) mixed, moderate F31.62 [facility] [id number] [place] [address] 27166- 2965 January, Bipolar I disorder, most recent episode (or current) mixed, moderate F31.62 [facility] [id number] [place] [address] 60606- 4860 January, Chronic pain G89.29 [facility] [id number] [place] [address] 50571- 8638 January, Chronic pain G89.29 and Essential hypertension I10 [facility] [id number] [place] [address] 87714- 5480 January, Bipolar I disorder, most recent episode (or current) mixed, moderate F31.62 [facility] [id number] [place] [address] 90469- 8930 Dec, [facility] [id number] [place] [address] 02930- 0943 Dec, [facility] [id number] [place] [address] 01041- 1422 Dec, [facility] [id number] [place] [address] 97920- 2963 Dec, [facility] [id number] [place] [address] 56082- 1678 Nov, Reactive airway disease J45.909 [facility] [id number] [place] [address] 61187- 4747 Nov, [facility] ([facility] [id number] [place] [address] 94974- 1342 Nov, [facility] ([facility] [id number] [place] [address] 98921- 8362 Nov, [facility] ([facility] [id number] [place] [address] 29750- 0546 Nov, [place] [id number] [place] [address] 26333- 3696 Nov, Onychomycosis B35.1 ; Hammertoe M20.40 ; Spencer or callus L84 and DM neuro manif type II E11.49 [place] [id number] [place] [address] 09778- 1532 Nov, Chronic pain G89.29 ; Leukocytosis D72.829 and Diabetes E11.9 [place] [address] 24112- 6463 Nov, [place] [address] 46603- 7156 Oct, Bronchitis J40 [place] [id number] [place] [address] 54911- 5304 Oct, [place] [address] 02300- 3476 Oct, [place] [id number] [place] [address] 22341- 7529 Oct, Mastoiditis, unspecified laterality H70.90 and Type 2 diabetes mellitus with complication E11.8 [place] [id number] [place] [address] 73295- 6160 Sep, [place] [id number] [place] [address] 75144- 2412 Sep, Dysuria R30.0 ; Cough R05 ; Benign prostatic hyperplasia with lower urinary tract symptoms, unspecified morphology N40.1 ; Hypokalemia E87.6 and Eustachian tube dysfunction, unspecified laterality H69.80 [place] [id number] [place] [address] 14352- 2839 Sep, Moderate mixed bipolar I disorder F31.62 [place] [id number] [place] [address] 97480- 9873 Sep, Hypokalemia E87.6 [facility] ([facility] [id number] [place] [address] 03534- 5405 Sep, [facility] ([facility] [id number] [place] [address] 88946- 4192 Sep, Upper respiratory tract infection, unspecified type J06.9 [facility] [id number] [place] [address] 01713- 3533 Aug, [facility] ([facility] [id number] [place] [address] 65479- 9245 Aug, Dysuria R30.0 [facility] [id number] [place] [address] 83709- 6697 Aug, [facility] [id number] [place] [address] 85803- 4608 Jul, [facility] [id number] [place] [address] 16953- 9353 Jul, [facility] [id number] [place] [address] 27454- 5675 Jul, [facility] [id number] [place] [address] 52764- 9459 Jul, [facility] [id number] [place] [address] 35254- 6991 Jun, [facility] [id number] [place] [address] 85726- 2087 Jun, [facility] [id number] [place] [address] 27674- 2816 Jun, [facility] [id number] [place] [address] 44991- 4777 May, [facility] [id number] [place] [address] 20460- 0045 May, Bipolar I disorder, most recent episode (or current) mixed, moderate 296.62 [facility] [address] [address]- 7805 May, [facility] [id number] [place] [address] 56003- 7653 May, Bipolar I disorder, most recent episode (or current) mixed, moderate 296.62 and Major depressive disorder, recurrent episode, severe, specified as with psychotic behavior 296.34 [facility] [id number] [place] [address] 34344- 6526 May, Bipolar I disorder, most recent episode (or current) mixed, moderate 296.62 [facility] [id number] [place] [address] 72607- 1441 May, [facility] [id number] [place] [address] 16052- 0340 Apr, [facility] [id number] [place] [address] 01728- 5788 Apr, [facility] [id number] [place] [address] 25644- 3050 Apr, Unspecified disorder of kidney and ureter 593.9 and Diabetes mellitus type 2, uncontrolled 250.02 [facility] [id number] [place] [address] 68122- 9867 Apr, [facility] [address] [address]- 5913 Apr, [facility] [id number] [place] [address] 56548- 7607 Apr, [facility] [address], [place] [address]- 0810 Apr, [facility] [id number] [place] [address] 27794- 6051 Apr, Diabetes mellitus type II, uncontrolled 250.02 [facility] [address], [place] [address]- 8658 Apr, [facility] [address] [address]- 4839 Mar, [facility] [id number] [place] [address] 30997- 9749 Mar, [facility] [id number] [place] [address] 20250- 5499 Mar, [facility] [id number] [place] [address] 702036- 9501 Mar, Major depressive disorder, recurrent episode, severe, specified as with psychotic behavior 296.34 and Bipolar I disorder, most recent episode (or current) mixed, moderate 296.62 [facility] [id number] [place] [address] 27830- 5611 Mar, Diabetes 250.00 ; Anuria 788.5 ; Nausea and vomiting 787.01 and Diarrhea 787.91 [facility] [id number] [place] [address] 31475- 1733 Mar, Diabetes 250.00 [facility] [id number] [place] [address] 30993- 3076 Mar, [facility] [id number] [place] [address] 23532- 9546 Mar, Diabetes 250.00 [facility] [id number] [place] [address] 23959- 4187 Mar, [facility] [id number] [place] [address] 01012- 3262 Mar, [facility] [address], [place] [address]- 0580 Mar, [facility] [id number] [place] [address] 40083- 5972 Mar, [facility] [address] [address] 1857 Mar, Bipolar I disorder, most recent episode (or current) mixed, moderate 296.62 and Major depressive disorder, recurrent episode, severe, specified as with psychotic behavior 296.34 [id number] [place] [address] 58667- 2093 Mar, Magnesium deficiency 275.2 ; Hypokalemia 276.8 ; Nausea & vomiting 787.01 and Diabetes mellitus type 2, uncontrolled 250.02 [address] [id number] [place] [address] 79270- 0593 Feb, [address] [address] 90059- 9093 Feb, Bipolar I disorder, most recent episode (or current) mixed, moderate 296.[address] 73638- 2666 Feb, Nausea and vomiting 787.01 ; Left elbow pain 719.42 ; Anuria 788.5 and Diabetes 250.00 [id number] [place] [address] 56116- 3391 Feb, [id number] [place] [address] 72669- 1329 Feb, Hypopotassemia 276.8 and Hypokalemia 276.8 [id number] [place] [address] 63491- 7799 Feb, Hypopotassemia 276.8 and Hypokalemia 276.8 [id number] [place] [address] 58346- 4925 Feb, Seborrheic keratoses 702.19 [id number] [place] [address] 66061- 1010 Feb, Hypopotassemia 276.8 and Low magnesium levels 275.2 [place] [id number] [place] [address] 99258- 0989 January, [place] [id number] [place] [address] 40868- 0657 January, [address] [id number] [address]- 0558 January, [facility] [id number] [place] [address] 31306- 8733 January, Scalp lesion 709.9 [facility] [id number] [place] [address] 70219- 2881 January, [facility] [id number] [place] [address] 40076- 7195 Dec, Tear of medial cartilage or meniscus of knee, current 836.0 and 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 [facility] [id number] [place] [address] 61160- 8409 Dec, [facility] [id number] [place] [address] 92026- 9074 Dec, [facility] [id number] [place] [address] 05315- 3564 Dec, Squamous cell carcinoma, 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 [facility] [id number] [place] [address] 42385- 5930 Dec, [facility] [id number] [place] [address] 80854- 7813 Dec, [facility] [address] [address]- 1796 Nov, [facility] [id number] [place] [address] 12599- 0897 Nov, [facility] [address], [place] [address]- 0819 Nov, [facility] [id number] [place] [address] 57577- 7647 Nov, [facility] [address], [place] [address]- 1835 Nov, [facility] [id number] [place] [address] 70587- 7718 Nov, [facility] [place] [facility] [address] [id number] [place] [address]- 5351 Nov, [facility] [place] [facility] [address] [id number] [place] 4745 Nov, 2014 [facility] [place] [facility] [address] [facility] [id number] [place] [address]- 4653 Nov, 2014 [facility] [place] [facility] [address] [facility] [id number] [place] [address]- 4391 Nov, [facility] [place] [facility] [address] [facility] [id number] [place] [address]- 0414 Nov, [facility] [place] [facility] [address] [facility] [id number] [place] [address]- 6853 Nov, [facility] [place] [facility] [address] [facility] [id number] [place] [address]- 2972 Oct, 2014 [facility] [place] [facility] [address] [facility] [id number], [place] [address]- 8261 Oct, 2014 [facility] [place] [facility] [address] [facility] [id number], [place] [address]- 2818 Oct, 2014 [facility] [place] [facility] [address] [facility] [id number], [place] [address]- 6291 Oct, 2014 [facility] [place] [facility] [address] [facility] [id number], [place] [address]- 0723 Oct, 2014 [facility] [place] [facility] [address] [facility] [id number], [place] [address]- 5832 Oct, 2014 [facility] [place] [facility] [address] [facility] [id number], [place] [address]- 6990 Oct, 2014 [facility] [place] [facility] [address] [facility] [id number], [place] [address]- 4618 Oct, 2014 [facility] [place] [facility] [address] [facility] [id number], [place] [address]- 0042 Oct, [facility] [place] [facility] [address] [id number] [place] [address]- 0168 Sep, [facility] [place] [facility] [address] [id number] [place] [address]- 4233 Sep, [facility] [place] [facility] [address] [id number] [place] [address]- 3176 Sep, [facility] [place] [facility] [address] [id number] [place] [address]- 5273 Sep, [facility] [place] [facility] [address] [id number] [place] [address]- 5599 Sep, [facility] [place] [facility] [address] [id number] [place] [address]- 0863 Sep, [facility] [place] [facility] [address] [id number] [place] [address]- 5591 Sep, [facility] [place] [facility] [address] [id number] [place] [address]- 3142 Sep, [facility] [place] [facility] [address] [id number] [place] [address]- 2884 Sep, [facility] [place] [facility] [address] [id number] [place] [address]- 1904 Sep, [facility] [place] [facility] [address] [id number] [place] [address]- 3798 Sep, [facility] [place] [facility] [address] [id number], [place] [address]- 2177 Sep, [facility] [place] [facility] [address] [id number] [place] [address]- 2028 Sep, [facility] [place] [facility] [address] [id number] [place] [address]- 3357 Sep, [facility] [place] [facility] [address] [id number] [place] [address]- 1128 Sep, [facility] [place] [facility] [address] [id number], [place] [address]- 1566 Sep, [facility] [address] [id number] [place] [address]- 7998 Aug, [facility] [address] [id number] [place] [address]- 3636 Aug, [facility] [address] [id number] [place] [address]- 2716 Aug, [facility] [address] [id number] [place] [address]- 1202 Aug, [facility] [address] [id number] [place] [address]- 0342 Aug, [facility] [address] [id number] [place] [address]- 4880 Aug, [facility] [address] [id number] [place] [address]- 5649 Aug, [facility] [address] [id number] [place] [address]- 7484 Aug, [facility] [address] [id number] [place] [address]- 6075 Aug, [facility] [address] [id number] [place] [address]- 9838 Aug, [facility] [address] [id number] [place] [address]- 4693 Aug, [facility] [address] [place] [id number] Aug, [facility] [address] [id number] [place] [address]- 7199 Aug, [facility] [address] [id number] [place] [address]- 8345 Aug, [facility] [address] [id number] [place] [address]- 5276 Aug, [facility] [address] [id number] [place] [address]- 1520 10 Aug, 2014 [facility] [place] [facility] [address] [id number] [place] [address]- 8794 Aug, [facility] [place] [facility] [address] [id number] [place] [address]- 6856 Aug, [facility] [place] [facility] [address] [id number] [place] [address]- 9403 Aug, [facility] [place] [facility] [address] [id number] [place] [address]- 3109 Aug, [facility] [place] [facility] [address] [id number] [place] [address]- 2412 Aug, [facility] [place] [facility] [address] [id number] [place] [address]- 3049 Aug, [facility] [place] [facility] [address] [id number] [place] [address]- 1925 Aug, [facility] [place] [facility] [address] [id number] [place] [address]- 0760 Aug, [facility] [place] [facility] [address] [id number] [place] [address]- 6304 Aug, [facility] [place] [facility] [address] [facility] [id number] [place] [address]- 0810 Aug, [facility] [place] [facility] [address] [id number] [place] [address]- 7236 Aug, [facility] [place] [facility] [address] [id number] [place] [address]- 8792 Aug, [facility] [place] [facility] [address] [id number] [place] [address]- 4656 Aug, [facility] [place] [facility] [address] [id number] [place] [address]- 5256 Aug, [facility] [place] [facility] [address] [facility] [id number] [place] 2530 Jul, [facility] [place] [facility] [address] [id number] [place] [address]- 7983 Jul, [facility] [place] [facility] [address] [id number] [place] [address]- 7888 Jul, [facility] [place] [facility] [address] [id number] [place] [address]- 5112 Jul, [facility] [place] [facility] [address] [id number] [place] [address]- 0849 Jul, [facility] [place] [facility] [address] [id number] [place] [address]- 0638 Jul, [facility] [place] [facility] [address] [id number] [place] [address]- 1488 Jul, [facility] [place] [facility] [address] [id number] [place] [address]- 1385 Jul, [facility] [place] [facility] [address] [id number] [place] [address]- 0990 Jul, [facility] [place] [facility] [address] [id number] [place] [address]- 8998 Jul, [facility] [place] [facility] [address] [id number] [place] [address]- 1829 Jun, [facility] [place] [facility] [address] [id number] [place] [address]- 1380 Jun, [facility] [place] [facility] [address] [id number] [place] [address]- 3395 Jun, [facility] [place] [facility] [address] [id number] [place] [address]- 3016 16 Jun, 2014 [facility] [place] [facility] [address] [id number] [place] [address]- 8632 15 Jun, 2014 [facility] [place] [facility] [address] [id number] [place] [address]- 7786 Jun, [facility] [place] [facility] [address] [id number] [place] [address]- 9665 Jun, [facility] [place] [facility] [address] [id number] [place] [address]- 6097 Jun, [facility] [place] [facility] [address] [id number] [place] [address]- 8757 Jun, [facility] [place] [facility] [address] [id number] [place] [address]- 8276 Jun, [facility] [place] [facility] [address] [id number] [place] [address]- 5487 29 May, 2013 [facility] [place] [facility] [address] [id number] [place] [address]- 4583 29 May, 2013 [facility] [place] [facility] [address] [id number] [place] [address]- 7560 26 May, 2013 [facility] [place] [facility] [address] [id number] [place] [address]- 6683 26 May, 2013 [facility] [place] [facility] [address] [id number] [place] [address]- 1588 17 May, 2013 [facility] [place] [facility] [address] [id number] [place] [address] 2548 17 May, 2013 [facility] [place] [facility] [address] [id number] [place] [address]- 2541 15 May, 2013 [facility] [place] [facility] [address] [id number], [place] [address]- 0920 15 May, 2013 [facility] [place] [facility] [address] [id number], [place] [address] 2546 15 May, 2013 [facility] [place] [facility] [address] [id number] [place] [address] 2546 15 May, 2013 [facility] [place] [facility] [address] [id number] [place] [address]- 2540 10 May, 2013 [facility] [place] [facility] [address] [id number] [place] [address]- 2546 10 May, 2013 [facility] [place] [facility] [address] [id number] [place] [address]- 9157 May, 2013 [facility] [place] [facility] [address] [id number] [place] [address]- 3641 May, 2013 [facility] [place] [facility] [address] [id number] [place] [address]- 6574 May, [facility] [place] [facility] [address] [id number] [place] [address]- 9949 May, [facility] [place] [facility] [address] [id number] [place] [address]- 8660 Apr, [facility] [place] [facility] [address] [id number] [place] [address]- 2229 Apr, [facility] [place] [facility] [address] [id number] [place] [address]- 4463 Apr, [facility] [place] [facility] [address] [id number] [place] [address]- 4979 Apr, [facility] [place] [facility] [address] [id number] [place] [address]- 9218 Apr, [facility] [place] [facility] [address] [id number] [place] [address]- 5416 Apr, [facility] [place] [facility] [address] [id number] [place] [address]- 4966 Apr, [facility] [place] [facility] [address] [id number] [place] [address]- 2245 Apr, [facility] [place] [facility] [address] [id number] [place] [address]- 6131 Apr, [facility] [place] [facility] [address] [id number] [place] [address]- 0416 Apr, [facility] [place] [facility] [address] [id number] [place] [address]- 5882 Apr, [facility] [place] [facility] [address] [id number] [place] [address]- 9985 Apr, [facility] [place] [facility] [address] [id number] [place] [address]- 8400 Apr, [facility] [place] [facility] [address] [id number] [place] [address]- 7202 Apr, [facility] [place] [facility] [address] [id number] [place] [address]- 7983 Apr, [facility] [place] [facility] [address] [id number] [place] [address]- 0423 Mar, [facility] [place] [facility] [address] [id number] [place] [address] Mar, [facility] [place] [facility] [address] [id number] [place] [address] Mar, [facility] [place] [facility] [address] [id number] [place] [address] Mar, [facility] [place] [facility] [address] [id number] [place] [address] Mar, [facility] [place] [facility] [address] [id number] [place] [address] Mar, [facility] [place] [facility] [address] [id number] [place] [address] Mar, [facility] [place] [facility] [address] [id number] [place] [address] Mar, [facility] [place] [facility] [address] [id number] [place] [address] Mar, [facility] [place] [facility] [address] [id number] [place] [address] Mar, [facility] [place] [facility] [address] [id number] [place] [address] Mar, [facility] [place] [facility] [address] [id number] [place] [address] Mar, [facility] [place] [facility] [address] [id number] [place] [address] Mar, 2013 [facility] [place] [facility] [address] [id number] [place] [address]- [address] Mar, 2013 [facility] [place] [facility] [address] [id number] [place] [address] Mar, 2013 [facility] [place] [facility] [address] [id number] [place] [address]- [address] Mar, 2013 [facility] [place] [facility] [address] [id number] [place] [address]- [address] Mar, [facility] [place] [facility] [address] [id number] [place] [address] Mar, [facility] [place] [facility] [address] [id number] [place] [address] Feb, [facility] [place] [facility] [address] [id number] [place] [address] Feb, [facility] [place] [facility] [address] [id number] [place] [address] Feb, [facility] [place] [facility] [address] [id number] [place] [address] Feb, [facility] [place] [facility] [address] [id number] [place] [address]- [address] Feb, [facility] [place] [facility] [address] [id number] [place] [address] Feb, [facility] [place] [facility] [address] [id number] [place] [address] Feb, [facility] [place] [facility] [address] [id number] [place] [address]- [address] Feb, [facility] [place] [facility] [address] [id number] [place] [address]- [address] Feb, [facility] [place] [facility] [address] [id number] [place] [address]- [address] Feb, [facility] [place] [facility] [address] [id number] [place] [address] Feb, [facility] [place] [facility] [address] [id number] [place] [address]- [address] Feb, [facility] [place] [facility] [address] [id number] [place] [address]- [address] Feb, [facility] [place] [facility] [address] [id number] [place] [address] Feb, [facility] [place] [facility] [address] [id number] [place] [address] January, [facility] [place] [facility] [address] [id number] [place] [address] January, [facility] [place] [facility] [address] [id number] [place] [address] January, [facility] [place] [facility] [address] [id number] [place] [address] January, [facility] [place] [facility] [address] [id number] [place] [address] January, [facility] [place] [facility] [address] [id number] [place] [address] January, [facility] [place] [facility] [address] [id number] [place] [address] January, [facility] [place] [facility] [address] [id number] [place] [address] January, [facility] [place] [facility] [address] [id number] [place] [address]- [address] January, [facility] [place] [facility] [address] [id number] [place] [address]- [address] January, [facility] [place] [facility] [address] [id number] [place] [address]- [address] January, [facility] [place] [facility] [address] [id number] [place] [address]- [address] January, [facility] [address] [id number] [place] [address]- [address] January, [facility] [place] [facility] [address] [id number] [place] [address]- [address] January, [facility] [place] [facility] [address] [id number] [place] [address]- [address] Dec, [facility] [place] [facility] [address] [id number] [place] [address] Dec, [facility] [place] [facility] [address] [id number] [place] [address]- 3216 Dec, [facility] [place] [facility] [address] [id number] [place] [address]- [address] Dec, [facility] [place] [facility] [address] [id number] [place] [address]- [address] Dec, [facility] [place] [facility] [address] [id number] [place] [address]- [address]74 Dec, [facility] [place] [facility] [address] [id number] [place] [address]- 119[address] Dec, [facility] [place] [facility] [address] [id number] [place] [address]- [address] Dec, [facility] [place] [facility] [address] [id number] [place] [address]- [address] Dec, [facility] [place] [facility] [address] [id number] [place] [address]- [address]269 Dec, [facility] [place] [facility] [address] [id number] [place] [address]- [address]107 Nov, [facility] [place] [facility] [address] [id number] [place] [address]- 47[address] Nov, [facility] [place] [facility] [address] [id number] [place] [address] Nov, [facility] [place] [facility] [address] [id number] [place] [address] 6856 10 Nov, 2013 [facility] [place] [facility] [address] [id number] [place] [address] 2291 08 Nov, 2013 [facility] [place] [facility] [address] [id number] [place] [address] 6798 08 Nov, 2013 [facility] [place] [facility] [address] [id number] [place] [address] 5676 05 Nov, 2013 [facility] [place] [facility] [address] [id number] [place] [address]- 1331 05 Nov, 2013 [facility] [place] [facility] [address] [id number] [place] [address] 97[address] Nov, [facility] [place] [facility] [address] [id number] [place] [address] 3459 Nov, [facility] [place] [facility] [address] [id number] [place] [address] 1567 27 Oct, 2013 [facility] [place] [facility] [address] [id number] [place] [address]- 4033 27 Oct, 2013 [facility] [place] [facility] [address] [facility] [id number] [place] [address] 6[address] 21 Oct, 2013 [facility] [place] [facility] [address] [facility] [id number] [place] [address] 4704 Oct, [facility] [place] [facility] [address] [facility] [id number] [place] [address]- 6361 20 Oct, 2013 [facility] [place] [facility] [address] [facility] [id number] [place] [address]- 3073 20 Oct, 2013 [facility] [place] [facility] [address] [id number] [place] [address] 14 Oct, 2013 [facility] [place] [facility] [address] [facility] [id number] [place] [address] 14 Oct, 2013 [facility] [place] [facility] [address] [facility] [id number] [place] [address] 4315 Oct, [facility] [place] [facility] [address] [id number] [place] [address] 8623 Oct, [facility] [place] [facility] [address] [id number] [place] [address]- 0077 Oct, [facility] [place] [facility] [address] [id number] [place] [address]- 0075 Oct, [facility] [place] [facility] [address] [id number] [place] [address]- 7989 Oct, [facility] [place] [facility] [address] [id number] [place] [address]- 5782 Oct, [facility] [place] [facility] [address] [id number] [place] [address]- 8865 Sep, [facility] [place] [facility] [address] [id number] [place] [address]- 4944 Sep, [facility] [place] [facility] [address] [id number] [place] [address]- 3397 Sep, [facility] [place] [facility] [address] [id number] [place] [address]- 8200 Sep, [facility] [place] [facility] [address] [id number] [place] [address]- 6119 Sep, [facility] [place] [facility] [address] [id number] [place] [address]- 4182 Sep, [facility] [place] [facility] [address] [id number] [place] [address]- 9679 Sep, [facility] [place] [facility] [address] [id number] [place] [address]- 6482 Sep, [facility] [place] [facility] [address] [id number] [place] [address]- 7004 Sep, [facility] [place] [facility] [address] [id number] [place] [address]- 3629 Sep, [facility] [place] [facility] [address] [id number] [place] [address]- 2736 10 Aug, 2013 [facility] [address] [id number] [place] [address]- 0555 Aug, [facility] [address] [id number] [place] [address] 3500 Jul, [facility] [address] [id number] [place] [address]- 0168 Jul, [facility] [address] [id number] [place] [address]- 5795 Jul, [facility] [address] [id number] [place] [address]- 0899 Jul, [facility] [address] [id number] [place] [address] 4948 Jul, [facility] [address] [id number] [place] [address]- 8107 Jul, [facility] [address] [id number] [place] [address] 9624 Jul, [facility] [address] [id number] [place] [address] 3310 Jul, [facility] [address] [id number] [place] [address]- 7990 Jul, [facility] [address] [id number] [place] [address]- 2527 Jul, [facility] [address] [id number] [place] [address] 3388 Jul, [facility] [place] [facility] [address] [id number] [place] [address]- 6611 Jul, [facility] [place] [facility] [address] [id number] [place] [address]- 9373 Jul, [facility] [address] [id number] [place] [address]- 2259 Jul, [facility] [place] [facility] [address] [id number] [place] [address] 9838 Jul, 2012 [facility] [place] [facility] [address] [id number] [place] [address]- 7250 Jul, [facility] [place] [facility] [address] [id number] [place] [address] Jul, 2012 [facility] [place] [facility] [address] [id number] [place] [address]- 8584 Jul, [facility] [place] [facility] [address] [id number] [place] Jul, [facility] [place] [facility] [address] [id number] [place] [address]- 5891 Jun, 2012 [facility] [place] [facility] [address] [id number] [place] [address]- 5952 Jun, [facility] [place] [facility] [address] [id number], [place] [address]- 4479 Jun, 2012 [facility] [place] [facility] [address] [id number] [place] [address]- 0001 Jun, 2012 [facility] [place] [facility] [address] [id number] [address]12 Jun, 2012 [facility] [place] [facility] [address] [id number], [place] [address]- 5882 Jun, 2012 [facility] [place] [facility] [address] [id number], [place] [address]- 7004 Jun, [facility] [place] [facility] [address] [id number], [place] [address]- 7802 Jun, [facility] [place] [facility] [address] [id number], [place] [address]- 7320 Jun, [facility] [place] [facility] [address] [id number] [address] Jun, [facility] [place] [facility] [address] [id number], [place] [address]- 6569 Jun, [facility] [place] [facility] [address] [id number] [place] [address]- 1579 May, 2012 [facility] [place] [facility] [address] [id number] [place] [address]- 2196 May, [facility] [place] [facility] [address] [id number] [place] [address]- 9236 May, 2012 [facility] [place] [facility] [address] [id number] [place] [address]- 3503 17 May, 2012 [facility] [place] [facility] [address] [id number] [place] [address]- 4961 11 May, 2013 [facility] [place] [facility] [address] [id number] [place] [address]- 8624 May, [facility] [address] [id number] [place] [address]- 9324 May, [facility] [place] [facility] [address] [id number] [place] [address]- 5380 May, [facility] [place] [facility] [address] [id number] [place] [address]- 5838 Apr, [facility] [place] [facility] [address] [id number] [place] [address]- 4285 Apr, [facility] [place] [facility] [address] [id number] [place] [address]- 4753 Apr, [facility] [place] [facility] [address] [id number] [place] [address]- 9742 Apr, [facility] [place] [facility] [address] [id number] [place] [address]- 8706 Apr, [facility] [place] [facility] [address] [id number] [place] [address]- 9062 Mar, [facility] [place] [facility] [address] [id number] [place] [address]- 3380 Mar, [facility] [place] [facility] [address] [id number] [place] [address]- 7432 Mar, [facility] [place] [facility] [address] [id number] [place] [address]- 2889 Mar, [facility] [place] [facility] [address] [id number] [place] [address]- 0680 Mar, [facility] [place] [facility] [address] [id number] [place] [address]- 3297 Mar, [facility] [place] [facility] [address] [id number] [place] [address]- 0892 Mar, [facility] [place] [facility] [address] [id number] [place] [address]- 3483 Mar, [facility] [place] [facility] [address] [id number] [place] [address]- 7878 Feb, [facility] [place] [facility] [address] [id number] [place] [address]- 9785 Feb, [facility] [place] [facility] [address] [id number] [place] [address]- 5737 January, [facility] [place] [facility] [address] [id number] [place] [address]- 5334 January, [facility] [place] [facility] [address] [id number] [place] [address]- 4872 Dec, [facility] [place] [facility] [address] [id number] [place] [address]- 6358 Dec, [facility] [place] [facility] [address] [id number] [place] [address]- 2588 Nov, [facility] [place] [facility] [address] [id number] [place] [address]- 0859 Nov, [facility] [place] [facility] [address] [id number] [place] [address]- 4459 Nov, [facility] [place] [facility] [address] [id number] [place] [address]- 9860 Nov, [facility] [address] [id number] [place] [address]- 8978 Oct, [facility] [address] [id number] [place] [address]- 0476 Oct, [facility] [address] [facility] [id number] [place] [address]- 0046 Oct, [facility] [place] [facility] [address] [id number] [place] [address]- 1555 Oct, [facility] [address] [id number] [place] [address]- 9759 16 Oct, 2012 [facility] [address] [facility] [id number] [place] [address]- 6477 14 Oct, 2012 [facility] [address] [id number] [address]- 0224 08 Oct, 2012 [facility] [place] [facility] [address] [facility] [id number] [place] [address]- 4081 07 Oct, 2012 [facility] [address] [facility] [id number] [place] [address]- 7201 03 Oct, 2012 [facility] [address] [facility] [id number] [place] [address]- 6666 Sep, [facility] [address] [facility] [id number] [place] [address]- 6189 Sep, [facility] [place] [facility] [address] [facility] [id number] [place] [address]- 5230 Sep, [facility] [place] [facility] [address] [id number] [place] [address]- 0154 Sep, [facility] [place] [facility] [address] [facility] [id number] [place] [address]- 0642 Sep, [facility] [place] [facility] [address] [facility] [id number] [place] [address]- 8237 Sep, [facility] [place] [facility] [address] [id number] [place] [address]- 3743 Sep, [facility] [place] [facility] [address] [id number] [place] [address]- 6150 Sep, [facility] [place] [facility] [address] [id number] [place] [address]- 0082 Aug, [facility] [place] [facility] [address] [id number] [place] [address]- 8786 Aug, [facility] [place] [facility] [address] [id number] [place] [address]- 0897 Aug, [facility] [place] [facility] [address] [id number] [place] [address]- 6648 Aug, [facility] [place] [facility] [address] [id number] [place] [address]- 3426 Aug, [facility] [place] [facility] [address] [id number] [place] [address]- 1466 Aug, [facility] [place] [facility] [address] [id number] [place] [address]- 5050 Aug, [facility] [place] [facility] [address] [id number] [place] [address]- 0219 Aug, [facility] [place] [facility] [address] [id number] [place] [address]- 1372 Jul, [facility] [place] [facility] [address] [id number] [place] [address]- 6626 Jul, [facility] [place] [facility] [address] [id number] [place] [address]- 6528 Jul, [facility] [place] [facility] [address] [id number] [place] [address]- 9553 Jul, [facility] [place] [facility] [address] [id number] [place] [address]- 6899 Jul, [facility] [place] [facility] [address] [id number] [place] [address]- 0184 Jul, [facility] [place] [facility] [address] [id number] [place] [address]- 4279 Jun, [facility] [place] [facility] [address] [id number] [place]596 Jun, [facility] [place] [facility] [address] [id number] [place] [address]- 4414 Jun, [facility] [place] [facility] [address] [id number] [place] [address]- 8767 Jun, [facility] [place] [facility] [address] [id number] [place] [address]- 3715 Jun, [facility] [place] [facility] [address] [id number] [place] [address]- 3602 Jun, [facility] [place] [facility] [address] [id number] [place] [address]- 7285 Jun, [facility] [place] [facility] [address] [id number], [place] [address]- 0843 Jun, [facility] [place] [facility] [address] [id number] [place] [address]- 6792 Jun, [facility] [place] [facility] [address] [id number] [place] [address]- 4001 May, [facility] [place] [facility] [address] [id number], [place] [address]- 1025 24 May, 2012 [facility] [place] [facility] [address] [id number], [place] [address]- 4679 18 May, 2012 [facility] [place] [facility] [address] [id number] [place] [address]- 4431 Apr, [facility] [place] [facility] [address] [id number], [place] [address]- 8808 Apr, [facility] [place] [facility] [address] [id number] [place] [address]- 5635 Apr, [facility] [place] [facility] [address] [id number] [place] [address]- 8336 Apr, [facility] [place] [facility] [address] [id number] [place] [address]- 6703 Apr, [facility] [place] [facility] [address] [id number] [place] [address]- 2670 Apr, [facility] [place] [facility] [address] [id number] [place] [address]- 4810 Mar, [facility] [place] [facility] [address] [id number] [place] [address]- 0780 Mar, [facility] [place] [facility] [address] [id number] [place] [address]- 5673 Mar, [facility] [place] [facility] [address] [id number] [place] [address]- 2092 Mar, [facility] [place] [facility] [address] [id number] [place] [address]- 5590 Feb, [facility] [place] [facility] [address] [id number] [place] [address]- 6311 Feb, [facility] [place] [facility] [address] [id number] [place] [address]- 3057 Feb, [facility] [place] [facility] [address] [id number] [place] [address]- 3974 Feb, [facility] [place] [facility] [address] [id number] [place] [address]- 1025 Feb, [facility] [place] [facility] [address] [id number] [place] [address]- 6961 January, [facility] [place] [facility] [address] [id number] [place] [address]- 6892 January, [facility] [place] [facility] [address] [id number] [place] [address]- 2671 January, [facility] [place] [facility] [address] [id number] [place] [address]- 9381 January, [facility] [place] [facility] [address] [id number] [place] [address]- 0653 January, [facility] [place] [facility] [address] [id number] [place] [address]- 5070 January, [facility] [place] [facility] [address] [id number] [place] [address]- 0784 Dec, [facility] [place] [facility] [address] [id number] [place] [address]- 9409 Dec, [facility] [address] [id number] [place] [address]- 7622 Dec, [facility] [place] [facility] [address] [id number] [place] [address]- 6381 Dec, [facility] [address] [id number] [place] [address]- 8007 Dec, [facility] [address] [id number] [place] [address]- 2668 Nov, [facility] [place] [facility] [address] [id number] [place] [address]- 2770 Nov, [facility] [place] [facility] [address] [id number] [place] [address]- 6110 Nov, [facility] [place] [facility] [address] [id number] [place] [address]- 2310 Nov, [facility] [place] [facility] [address] [id number] [place] [address]- 0496 Oct, [facility] [place] [facility] [address] [id number] [place] [address]- 3411 Oct, [facility] [place] [facility] [address] [id number] [place] [address]- 9365 24 Oct, 2011 [facility] [place] [facility] [address] [id number] [place] [address]- 3686 Oct, [facility] [place] [facility] [address] [id number] [place] [address]- 3645 Oct, [facility] [address] [id number] [place] [address]- 4927 Sep, [facility] [place] [facility] [address] [id number] [place] [address]- 3179 Sep, [facility] [place] [facility] [address] [id number] [place] [address]- 5452 Sep, [facility] [place] [facility] [address] [id number] [place] [address]- 6370 Sep, [facility] [place] [facility] [address] [id number] [place] [address]- 2649 Sep, [facility] [place] [facility] [address] [id number] [place] [address]- 4317 Sep, [facility] [place] [facility] [address] [id number] [place] [address]- 1599 Aug, [facility] [place] [facility] [address] [id number] [place] [address]- 9247 Aug, [facility] [place] [facility] [address] [id number] [place] [address]- 5248 Aug, [facility] [place] [facility] [address] [facility] [id number] [place] [address]- 9611 Jul, [facility] [place] [facility] [address] [id number] [place] [address]- 8962 Jul, [facility] [place] [facility] [address] [id number], [place] [address]- 3405 Jul, [facility] [place] [facility] [address] [id number] [place] [address]- 7882 Jul, [facility] [place] [facility] [address] [facility] [id number] [place] [address]- 3237 Jun, [facility] [place] [facility] [address] [facility] [id number] 6542 Jun, [facility] [place] [facility] [address] [id number] [place] [address]- 2444 18 Jun, 2011 [facility] [place] [facility] [address] [id number] [place] [address]- 9645 10 Jun, 2011 [facility] [place] [facility] [address] [id number] [place] [address]- 4296 10 Jun, 2011 [facility] [place] [facility] [address] [id number] [place] [address]- 2093 10 Jun, 2011 [facility] [place] [facility] [address] [id number] [place] [address]- 2504 11 Mar, 2011 [facility] [place] [facility] [address] [id number] [place] [address]- 4572 18 Dec, 2010 [facility] [place] [facility] [address] [id number] [place] [address]- 8082 11 Dec, 2010 [facility] [place] [facility] [address] [id number] [place] [address]- 4597 18 Nov, 2010 [facility] [place] [facility] [address] [id number] [place] [address] 16 Nov, 2010 [facility] [place] [facility] [address] [id number] [place] [address] Sep, [facility] [place] [facility] [address] [id number] [place] [address] 31 Aug, 2010 [facility] [place] [facility] [address] [id number] [place] [address] 29 Aug, 2010 [facility] [place] [facility] [address] [id number] [place] [address] 29 Aug, 2010 [facility] [place] [facility] [address] [id number] [place] [address] 2548 29 Aug, 2010 [facility] [place] [facility] [address] [id number] [place] [address] 27 Aug, 2010 [facility] [place] [facility] [address] [id number] [place] [address] 14 Aug, 2010 [facility] [place] [facility] [address] [id number] [place] [address] 08 Aug, 2010 [facility] [place] [facility] [address] [id number] [place] [address] 0036 08 Aug, 2010 [facility] [place] [facility] [address] [facility] [id number] [place] [address] 84[address] Aug, [facility] [place] [facility] [address] [id number], [place] [address] Aug, [facility] [place] [facility] [address] [id number] [place] [address] Aug, [facility] [place] [facility] [address] [id number] [address] Aug, [facility] [place] [facility] [address] [id number], [place] [address] Jul, [facility] [place] [facility] [address] [id number], [place] [address] Jul, [facility] [place] [facility] [address] [id number], [place] [address] Jul, [facility] [place] [facility] [address] [id number], [place] [address] Jul, [facility] [place] [facility] [address] [id number], [place] [address] Jul, [facility] [place] [facility] [address] [id number], [place] [address] Jul, [facility] [place] [facility] [address] [id number], [place] [address] Jun, [facility] [place] [facility] [address] [facility] [id number], [place] [address] Jun, [facility] [place] [facility] [address] [facility] [id number], [place] [address] Jun, [facility] [place] [facility] [address] [id number] [place] [address] 13 Jun, 2010 [facility] [address] [id number] [place] [address] 8969 16 Apr, 2010 [facility] [address] [id number] [place] [address]46 20 Mar, 2010 [facility] [address] [id number] [place] [address] 17 Feb, 2010 [facility] [address] [id number] [place] [address] 2547 January, [facility] [address] [id number] [place] [address], [place] [address]- [address] 15 Dec, 2009 [facility] [address] [id number] [place] [address] Nov, [facility] [address] [facility] [id number] [place] [address] 9436 31 Aug, 2009 [facility] [address] [id number] [place] [address] 23 Aug, 2009 [facility] [address] [facility] [id number] [place] [address] 07 Aug, 2009 [facility] [address] [facility] [id number] [place] [address]698 12 Jul, 2009 [facility] [address] [id number] [place] [address] 2548 09 Jul, 2009 [facility] [address] [facility] [id number] [place] [address]- [address] 07 Jul, 2009 [facility] [address] [id number] [place] [address] 2543 30 Jun, 2009 [facility] [place] [facility] [address] [id number] [place] [address]- 2544 29 Jun, 2009 [facility] [address] [id number] [place] [address] Jun, [facility] [address] [id number], [place] [address] Jun, [facility] [address] [id number] [id number] Jun, [facility] [address] [id number], [place] [address] Jun, [facility] [id number], [place] [address] Apr, [facility] [address] [id number] [address] [address] Apr, [facility] [id number], [place] [address] Feb, [facility] [id number], [place] [address] January, [facility] [address] [id number], [place] [address] Dec, IMMUNIZATIONS No Known Immunizations SOCIAL HISTORY Never Assessed REASON FOR VISIT BH f/u, Depression and irritability. PLAN OF CARE Activity Details Follow Up Next available Reason:depression VITAL SIGNS MEDICATIONS Unknown Medications RESULTS No Results PROCEDURES Procedure Date Ordered Result Body Site [facility] VISIT MENTAL HEALTH ESTAB PT Jul 27, 2017 Psychotherapy, patient &/family, 45 minutes, established patient Jul 27, 2017 INSTRUCTIONS MEDICATIONS ADMINISTERED No Known Medications [...] History inability to urinate 09/16/15 Hospitalization History [facility] mental health early 1999' Hospitalization History hyperkalemia 10/2017 Hospitalization History fluid in lung
--- OUTSIDE RECORDS SUMMARY | 2018-08-08 12:58 | XMS REPORT ---
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 Name Role Phone NOEMI WASHBURN Unavailable PROBLEMS Type Condition ICD9-CM Code ZZE16-KA Code Onset Dates Condition Status SNOMED Code Problem Chronic lymphocytic leukemia C91.10 Active 36679255 Problem Insomnia, unspecified type G47.00 Active 210760894 Problem Lymphocytosis D72.820 Active 41947748 Problem Anxiety F41.9 Active 42003181 Problem Eye exam abnormal R93.8 Active 357107880 Problem Morbid obesity E66.01 Active 236466049 Problem Diabetic polyneuropathy associated with type 2 diabetes mellitus E11.42 Active 35426080 Problem Essential hypertension I10 Active 01198042 Problem Falling R29.6 Active 517807228 Problem 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 Active 011763999 Problem Cough R05 Active 99797880 Problem Dysuria R30.0 Active 34757962 Problem Eustachian tube dysfunction, unspecified laterality H69.80 Active 30797695 Problem Bilateral primary osteoarthritis of knee M17.0 Active 996070066 Problem Polyneuropathy associated with underlying disease G63 Active 439430583 Problem Anemia of chronic illness D63.8 Active 168695339 Problem Retinal edema H35.81 Active 9908304 Problem DM neuro manif type II E11.49 Active 83885515 Problem Diabetes E11.9 Active 44870433 Problem Hypokalemia E87.6 Active 66057221 Problem Benign prostatic hyperplasia with lower urinary tract symptoms, unspecified morphology N40.1 Active 876211377 Problem Reactive airway disease J45.909 Active 125180862285 Problem Bipolar I disorder, most recent episode (or current) mixed, moderate F31.62 Active 31901320 Problem Chronic pain G89.29 Active 08726303 Problem Leukocytosis D72.829 Active 114222691 ALLERGIES No Information ENCOUNTERS Encounter Location Date Diagnosis [facility] [address] [address] Dec, [facility] [id number] [place] [address] 26768- 9682 Dec, [facility] [id number] [place] [address] 54151- 6509 Dec, [facility] [id number] [place] [address] 13779- 8858 Dec, Bipolar I disorder, most recent episode (or current) mixed, moderate F31.62 [facility] [id number] [place] [address] 94823- 2717 Nov, Bipolar I disorder, most recent episode (or current) mixed, moderate F31.62 [facility] [id number] [place] [address] 54082- 3415 Nov, Chronic pain G89.29 [facility] [id number] [place] [address] 24856- 3799 Nov, Bipolar I disorder, most recent episode (or current) mixed, moderate F31.62 [facility] [id number] [place] [address] 53730- 7811 Nov, Hypokalemia E87.6 [facility] [id number] [place] [address] 99545- 3035 Nov, Bipolar I disorder, most recent episode (or current) mixed, moderate F31.62 [facility] [id number] [place] [address] 83288- 1587 Oct, Chronic pain G89.29 [facility] [id number] [place] [address] 76961- 8236 Oct, BMI 50.0-59.9, adult Z68.43 and Bipolar I disorder, most recent episode (or current) mixed, moderate F31.62 [facility] [id number] [place] [address] 30488- 0239 Oct, Bipolar I disorder, most recent episode (or current) mixed, moderate F31.62 [facility] [id number] [place] [address] 21943- 6162 Oct, [facility] [id number] [place] [address] 32709- 1916 Oct, Hypokalemia E87.6 [facility] [address] 47874- 7401 Oct, DM neuro manif type II E11.49 [facility] [id number] [place] [address] 47119- 6480 Oct, Bipolar I disorder, most recent episode (or current) mixed, moderate F31.62 [facility] [id number] [place] [address] 32282- 0946 Oct, Bipolar I disorder, most recent episode (or current) mixed, moderate F31.62 [facility] [id number] [place] [address] 60475- 8164 Oct, Hyperkalemia E87.5 ; Falling R29.6 ; BMI 50.0-59.9, adult Z68.43 and Acute left ankle pain M25.572 [facility] [id number] [place] [address] 13791- 7449 Oct, DM neuro manif type II E11.49 [facility] [id number] [place] [address] 29533- 2680 Oct, [facility] [id number] [place] [address] 27706- 6711 Sep, Chronic pain G89.29 [facility] [id number] [place] [address] 15558- 0743 Sep, [facility] [id number] [place] [address] 50646- 2757 Sep, Bilateral primary osteoarthritis of knee M17.0 [facility] [id number] [place] [address] 94852- 6503 Sep, Generalized edema R60.1 [facility] [id number] [place] [address] 52133- 9304 16 Sep, 2017 Bipolar I disorder, most recent episode (or current) mixed, moderate F31.62 [facility] [address] 79998- 5594 15 Sep, 2017 Hypoxia R09.02 ; Other hypervolemia E87.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 ; Anemia of chronic illness D63.8 and BMI 50.0- 59.9, adult Z68.43 [facility] [id number] [place] [address] 86567- 2988 Sep, [facility] [address] 86337- 5151 Sep, Bipolar I disorder, most recent episode (or current) mixed, moderate F31.62 [facility] [address] 03591- 8549 Aug, Chronic pain G89.29 [facility] [id number] [place] [address] 19756- 7994 Aug, Generalized edema R60.1 [facility] [id number] [place] [address] 13085- 5707 Aug, [facility] [id number] [place] [address] 78674- 3181 Aug, [address] 17243- 6971 14 Aug, 2017 Bipolar I disorder, most recent episode (or current) mixed, moderate F31.62 [facility] [id number] [place] [address] 59425- 9968 07 Aug, 2017 Bipolar I disorder, most recent episode (or current) mixed, moderate F31.62 [facility] [address] [place] [address] 22557- 2965 Aug, Chronic pain G89.29 [facility] [id number] [place] [address] Jul, Bipolar I disorder, most recent episode (or current) mixed, moderate F31.62 [facility] [id number] [place] [address] 498222- 6445 Jul, Bipolar I disorder, most recent episode (or current) mixed, moderate F31.62 and BMI 60.0-69.9, adult Z68.44 [facility] [id number] [place], [place] [address] Jul, Bipolar I disorder, most recent episode (or current) mixed, moderate F31.62 [facility] [id number] [place] [address] 22106- 8330 Jul, Chronic pain G89.29 [facility] [id number] [place] [address] 707709- 1394 Jul, Bipolar I disorder, most recent episode (or current) mixed, moderate F31.62 [facility] [address] [place] [address] 01401- 7090 Jun, Polyneuropathy associated with underlying disease G63 and Diabetes E11.9 [facility] [address] [place] [address] 72208- 7126 Jun, Bipolar I disorder, most recent episode (or current) mixed, moderate F31.62 [facility] [address] [place] [address] 24767- 9923 Jun, Chronic pain G89.29 [facility] [id number] [place] [address] 08575- 0611 May, Bipolar I disorder, most recent episode (or current) mixed, moderate F31.62 [facility] [id number] [place] [address] 34013- 5891 21 May, 2017 Bipolar I disorder, most recent episode (or current) mixed, moderate F31.62 [facility] [id number] [place] [address] 78229- 3301 20 May, 2017 Diabetic polyneuropathy associated with type 2 diabetes mellitus E11.42 [facility] [id number] [place] [address] 04507- 1992 18 May, 2017 Bipolar I disorder, most recent episode (or current) mixed, moderate F31.62 [facility] [address] [place] [address] 73142- 9809 13 May, 2017 Bipolar I disorder, most recent episode (or current) mixed, moderate F31.62 [facility] [address] [place] [address] 44751- 7623 12 May, 2017 Chronic pain G89.29 [facility] [id number] [place] [address] 56763- 2767 30 Apr, 2017 Bipolar I disorder, most recent episode (or current) mixed, moderate F31.62 [facility] [id number] [place] [address] 21006- 9747 Apr, [facility] [id number] [place] [address] 01348- 3766 Apr, Chronic pain G89.29 and DM neuro manif type II E11.49 [facility] [address] [place] [address] 90229- 7706 Apr, [facility] [id number] [place] [address] 00703- 0877 Apr, Bipolar I disorder, most recent episode (or current) mixed, moderate F31.62 [facility] [address] [place] [address] 60648- 5685 14 Apr, 2017 Chronic pain G89.29 [facility] [id number] [place] [address] 76573- 7476 Apr, Iliotibial band syndrome, left M76.32 [facility] [id number] [place] [address] 22967- 7019 Apr, Bipolar I disorder, most recent episode (or current) mixed, moderate F31.62 [facility] [id number] [place] [address] 71196- 2041 Mar, Bipolar I disorder, most recent episode (or current) mixed, moderate F31.62 [facility] [id number] [place] [address] 45791- 0125 Mar, Bipolar I disorder, most recent episode (or current) mixed, moderate F31.62 [facility] [id number] [place] [address] 65503- 3143 Mar, [facility] [id number] [place] [address] 23427- 7500 Mar, Bipolar I disorder, most recent episode (or current) mixed, moderate F31.62 [facility] [id number] [place] [address] 21962- 5610 Mar, Chronic pain G89.29 [facility] [id number] [place] [address] 25644- 2229 Mar, Bipolar I disorder, most recent episode (or current) mixed, moderate F31.62 [facility] [address] [place] [address] 17704- 1244 Mar, Bipolar I disorder, most recent episode (or current) mixed, moderate F31.62 [facility] [address] [place] [address] 70931- 2801 Mar, Acute pain of left knee M25.562 ; Left hip pain M25.552 ; Generalized edema R60.1 and Tongue swelling R22.0 [facility] [address] [place] [address] 96957- 6036 Mar, [facility] [address] 09799- 8422 Feb, Chronic pain G89.29 [facility] [id number] [place] [address] 66865- 4216 Feb, Diabetes E11.9 [facility] [address] [place] [address] 73012- 9429 January, Chronic pain G89.29 [facility] [id number] [place] [address] 39138- 3536 January, [facility] [id number] [place] [address] 87154- 5821 January, Bipolar I disorder, most recent episode (or current) mixed, moderate F31.62 [facility] [id number] [place] [address] 30291- 1365 Dec, Bipolar I disorder, most recent episode (or current) mixed, moderate F31.62 [facility] [id number] [place] [address] 69186- 9119 Dec, Chronic pain G89.29 [facility] [id number] [place] [address] 03272- 4435 Dec, Bipolar I disorder, most recent episode (or current) mixed, moderate F31.62 [facility] [address] [place] [address] 20554- 5486 Dec, Diabetes E11.9 ; Essential hypertension I10 ; Chronic pain G89.29 and Morbid obesity E66.01 [facility] [address] [place] [address] 18106- 9324 Dec, [facility] [id number] [place] [address] 16405- 2961 Dec, Bipolar I disorder, most recent episode (or current) mixed, moderate F31.62 [facility] [address] [place] [address] 96990- 8981 Dec, Bipolar I disorder, most recent episode (or current) mixed, moderate F31.62 [facility] [address], [place] [address]- 5608 Nov, Chronic pain G89.29 [facility] [id number] [place] [address] 10788- 4446 Nov, Bipolar I disorder, most recent episode (or current) mixed, moderate F31.62 [facility] [id number] [place] [address] 96025- 5835 Nov, [facility] [id number] [place] [address] 55110- 5522 Nov, Bipolar I disorder, most recent episode (or current) mixed, moderate F31.62 [facility] [address] [place] [address] 59716- 5083 Nov, Bipolar I disorder, most recent episode (or current) mixed, moderate F31.62 [facility] [id number] [place] [address] 77985- 2440 Nov, [facility] [id number] [place] [address] 60686- 1854 Nov, [facility] [id number] [place] [address] 18286- 0779 Nov, [facility] [id number] [place] [address] 93536- 8514 Oct, Chronic pain G89.29 [facility] [address] [place] [address] 60483- 6292 Oct, Bipolar I disorder, most recent episode (or current) mixed, moderate F31.62 [facility] [address] [place] [address] 12365- 2016 Oct, [facility] [address] [place] [address] 50378- 6806 15 Oct, 2016 Chronic pain G89.29 ; Diabetes E11.9 ; Anxiety F41.9 and 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 [facility] [address] [address]- 9572 Oct, [facility] [id number] [place] [address] 06177- 4486 Oct, Diabetes E11.9 [facility] [address] [place] [address] 58688 2546 Oct, Bipolar I disorder, most recent episode (or current) mixed, moderate F31.62 [facility] [address] [place] [address] 80515- 3612 Sep, Chronic pain G89.29 [facility] [id number] [place] [address] 12343- 2006 Sep, Chronic pain G89.29 [facility] [id number] [place] [address] 98054- 7846 Aug, Chronic pain G89.29 [facility] [id number] [place] [address] 31731- 2071 Jul, [facility] [id number] [place] [address] 27800- 9652 Jul, Diabetes E11.9 [facility] [address] [place] [address] 09511- 1066 Jul, Chronic pain G89.29 [facility] [id number] [place] [address] 98818- 5876 Jul, Bipolar I disorder, most recent episode (or current) mixed, moderate F31.62 [facility] [address] [place] [address] 53410- 4040 Jun, Bipolar I disorder, most recent episode (or current) mixed, moderate F31.62 [facility] [address] [place] [address] 77900- 1802 Jun, [facility] [id number] [place] [address] 19501- 2312 Jun, Bipolar I disorder, most recent episode (or current) mixed, moderate F31.62 [facility] [id number] [place] [address] 26916- 8666 30 May, 2016 Insomnia, unspecified type G47.00 [facility] [id number] [place] [address] 40808- 4650 22 May, 2016 Bipolar I disorder, most recent episode (or current) mixed, moderate F31.62 [facility] [id number] [place] [address] 68821- 4541 14 May, 2016 [facility] [address] 756721- 5243 08 May, 2016 Bipolar I disorder, most recent episode (or current) mixed, moderate F31.62 [facility] [id number] [place] [address] 52618- 8160 06 May, 2016 Diabetes E11.9 and Essential hypertension I10 [facility] [id number] [place] [address] 79343- 9337 Apr, Chronic pain G89.29 [facility] [address] 38848- 8438 Apr, Bipolar I disorder, most recent episode (or current) mixed, moderate F31.62 [facility] [id number] [place] [address] 20648- 8338 Apr, [facility] [id number] [place] [address] 95811- 8905 Apr, [facility] [id number] [place] [address] 69965- 9540 Mar, Chronic pain G89.29 ; Headache, unspecified headache type R51 ; Neuropathy G62.9 ; Pain of right hip joint M25.551 and Essential hypertension I10 [facility] [id number] [place] [address] 79531- 6154 Mar, Chronic pain G89.29 [facility] [address], [place] [address]- 2855 Mar, Bipolar I disorder, most recent episode (or current) mixed, moderate F31.62 [facility] [id number] [place] [address] 83432- 9335 Feb, Bipolar I disorder, most recent episode (or current) mixed, moderate F31.62 and Insomnia, unspecified type G47.00 [facility] [id number] [place] [address] 85053- 7167 Feb, Chronic pain G89.29 [facility] [id number] [place] [address] 01596- 5584 Feb, Bipolar I disorder, most recent episode (or current) mixed, moderate F31.62 [facility] [id number] [place] [address] 42696- 9542 January, Bipolar I disorder, most recent episode (or current) mixed, moderate F31.62 [facility] [id number] [place] [address] 86554- 4339 January, Chronic pain G89.29 [facility] [id number] [place] [address] 50394- 8328 January, Chronic pain G89.29 and Essential hypertension I10 [facility] [id number] [place] [address] 77843- 9465 January, Bipolar I disorder, most recent episode (or current) mixed, moderate F31.62 [facility] [address] [place] [address] 25612- 5134 Dec, [facility] [id number] [place] [address] 21939- 7292 Dec, [facility] [id number] [place] [address] 80946- 9952 Dec, [facility] [id number] [place] [address] 64308- 6954 Dec, [facility] [id number] [place] [address] 49630- 3454 Nov, Reactive airway disease J45.909 [facility] [id number] [place] [address] 34827- 7804 Nov, [facility] [address] 14329- 5753 Nov, [facility] [address] 63821- 0482 Nov, [facility] [address] 26766- 3214 Nov, [facility] [address] 22101- 9478 Nov, Onychomycosis B35.1 ; Hammertoe M20.40 ; [place] or callus L84 and DM neuro manif type II E11.49 [facility] [id number] [place] [address] 20450- 9772 Nov, Chronic pain G89.29 ; Leukocytosis D72.829 and Diabetes E11.9 [facility] [id number] [place] [address] 24562- 9301 Nov, [facility] [id number] [place] [address] 12202- 0688 Oct, Bronchitis J40 [facility] [id number] [place] [address] 31438- 6453 Oct, [facility] [id number] [place] [address] 94397- 9640 Oct, [facility] [address] 25395- 0110 Oct, Mastoiditis, unspecified laterality H70.90 and Type 2 diabetes mellitus with complication E11.8 [facility] [address] 49602- 7760 Sep, [facility] [id number] [place] [address] 62090- 2365 Sep, Dysuria R30.0 ; Cough R05 ; Benign prostatic hyperplasia with lower urinary tract symptoms, unspecified morphology N40.1 ; Hypokalemia E87.6 and Eustachian tube dysfunction, unspecified laterality H69.80 [facility] [id number] [place] [address] 48782- 1431 Sep, Moderate mixed bipolar I disorder F31.62 [facility] [id number] [place] [address] 02930- 9629 Sep, Hypokalemia E87.6 [facility] [id number] [place] [address] 82893- 2604 Sep, [facility] [id number] [place] [address] 45181- 0006 Sep, Upper respiratory tract infection, unspecified type J06.9 [facility] [id number] [place] [address] 57837- 1219 Aug, [facility] [id number] [place] [address] 33120- 7659 Aug, Dysuria R30.0 [facility] [id number] [place] [address] 83163- 5479 Aug, [facility] [id number] [place] [address] 22888- 5549 Jul, [facility] [id number] [place] [address] 32746- [id number] Jul, [facility] [id number] [place] [address] 14860- [id number] Jul, [facility] [id number] [place] [address] 67415- 1729 Jul, [facility] [id number] [place] [address] 29937- [phone] Jun, [facility] [id number] [address] Jun, [facility] [id number] [place] [address] Jun, [facility] [id number] [address] May, [facility] [id number] [place] [address] 44482- 3810 May, Bipolar I disorder, most recent episode (or current) mixed, moderate 296.62 [facility] [id number] [place] [address] [id number]- 7169 May, [facility] [id number] [address] May, Bipolar I disorder, most recent episode (or current) mixed, moderate 296.62 and Major depressive disorder, recurrent episode, severe, specified as with psychotic behavior 296.34 [facility] [address], [place] [address] May, Bipolar I disorder, most recent episode (or current) mixed, moderate 296.62 [facility] [address], [place] [address] May, [facility] [address], [place] [address] 6[address] Apr, [facility] [address], [place] [address] 4[address] Apr, [facility] [id number] [place] [address]77- 8944 Apr, Unspecified disorder of kidney and ureter 593.9 and Diabetes mellitus type 2, uncontrolled 250.02 [facility] [address], [place] [address] 7984 Apr, [facility] [id number], [place] [address] 9424 Apr, [facility] [address], [place] [address] 7030 Apr, [facility] [address], [place] [address] 0909 Apr, [facility] [id number] [place] [address] 11281- 3208 Apr, Diabetes mellitus type II, uncontrolled 250.02 [facility] [id number] [place] [address] 96628- 0851 Apr, [facility] [id number] [place] [address] 52928- 1754 Mar, [facility] [id number] [place] [address] 65900- 8093 Mar, [facility] [id number] [place] [address] 66157- 0267 Mar, [facility] [id number] [place] [address] 63072- 6321 Mar, Major depressive disorder, recurrent episode, severe, specified as with psychotic behavior 296.34 and Bipolar I disorder, most recent episode (or current) mixed, moderate 296.62 [facility] [id number] [place] [address] 26796- 0149 Mar, Diabetes 250.00 ; Anuria 788.5 ; Nausea and vomiting 787.01 and Diarrhea 787.91 [facility] [address], [place] [address] 6300 Mar, Diabetes 250.00 [facility] [id number] [place] [address] 97582- 6093 Mar, [facility] [address], [place] [address]- 2855 Mar, Diabetes 250.00 [facility] [id number] [place] [address] 79222- 0804 Mar, [facility] [id number] [place] [address] 02822- 3142 Mar, [facility] [id number] [place] [address] 32562- 0751 Mar, [facility] [id number] [place] [address] 75477- 6277 Mar, [facility] [id number] [place] [address] 29116- 0649 Mar, Bipolar I disorder, most recent episode (or current) mixed, moderate 296.62 and Major depressive disorder, recurrent episode, severe, specified as with psychotic behavior 296.34 [facility] [id number] [place] [address] 37807- 6108 Mar, Magnesium deficiency 275.2 ; Hypokalemia 276.8 ; Nausea & vomiting 787.01 and Diabetes mellitus type 2, uncontrolled 250.02 [facility] [id number] [place] [address] 99300- 3329 Feb, [facility] [id number] [place] [address] 14468- 0631 Feb, Bipolar I disorder, most recent episode (or current) mixed, moderate 296.62 [facility] [id number] [place] [address] 27690- 3818 Feb, Nausea and vomiting 787.01 ; Left elbow pain 719.42 ; Anuria 788.5 and Diabetes 250.00 [facility] [id number] [place] [address] 67590- 6563 Feb, [facility] [address] [place] [id number] [place] [address] 01464- 3398 Feb, Hypopotassemia 276.8 and Hypokalemia 276.8 [facility] [id number] [place] [address] 71396- 0670 Feb, Hypopotassemia 276.8 and Hypokalemia 276.8 [facility] [address], [place] [address]- 8084 Feb, Seborrheic keratoses 702.19 [facility] [id number] [place] [address] 47350- 7593 Feb, Hypopotassemia 276.8 and Low magnesium levels 275.2 [facility] [id number] [place] [address] 81291- 6681 January, [facility] [id number] [place] [address] 54234- 6768 January, [facility] [id number] [place] [address] 15228- 9406 January, [facility] [id number] [place] [address] 15902- 5480 January, Scalp lesion 709.9 [facility] [id number] [place] [address] 14160- 8197 January, [facility] [id number] [place] [address] 96566- 7508 Dec, Tear of medial cartilage or meniscus of knee, current 836.0 and 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 [facility] [address] [place] [address] 11002- 1501 Dec, [facility] [id number] [place] [address] 81034- 4555 Dec, [facility] [address] [place] [address] 88904- 7773 Dec, Squamous cell carcinoma, 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 [facility] [id number] [place] [address] 85061- 0735 14 Dec, 2014 [facility] [id number] [place] [address] 44259- 6482 Dec, [facility] [id number] [place] [address] 25729- 2518 Nov, [facility] [place] [facility] [address] [id number] [place] [address]- 2715 Nov, [facility] [place] [facility] [address] [id number] [place] [address]- 5431 Nov, [facility] [place] [facility] [address] [id number] [place] [address]- 6977 Nov, [facility] [place] [facility] [address] [id number] [place] [address]- 3124 Nov, [facility] [place] [facility] [address] [id number] [place] [address]- 1128 Nov, [facility] [place] [facility] [address] [facility] [id number] [place] [address]- 0737 Nov, [facility] [place] [facility] [address] [facility] [id number] [place] [address]- 7460 Nov, [facility] [place] [facility] [address] [facility] [id number] [place] [address]- 0159 Nov, [facility] [place] [facility] [address] [id number] [place] [address]- 7910 Nov, [facility] [place] [facility] [address] [facility] [id number], [place] [address]- 0249 Nov, [facility] [place] [facility] [address] [id number], [place] [address]- 9915 Nov, [facility] [place] [facility] [address] [facility] [id number], [place] [address]- 3311 Oct, [facility] [place] [facility] [address] [id number] [place] [address]- 9725 Oct, [facility] [place] [facility] [address] [id number], [place] [address]- 8582 Oct, [facility] [place] [facility] [address] [facility] [id number], [place] [address]- 0952 Oct, [facility] [place] [facility] [address] [id number] [place] [address]- 3164 Oct, [facility] [place] [facility] [address] [id number] [place] [address]- 4733 Oct, [facility] [place] [facility] [address] [id number] [place] [address]- 6551 Oct, [facility] [place] [facility] [address] [id number] [place] [address]- 6061 Oct, [facility] [place] [facility] [address] [id number] [place] [address]- 3180 Oct, [facility] [place] [facility] [address] [id number] [place] [address]- 3508 Sep, [facility] [place] [facility] [address] [id number] [place] [address]- 1946 Sep, [facility] [place] [facility] [address] [id number] [place] [address]- 5579 Sep, [facility] [place] [facility] [address] [id number] [place] [address]- 0306 Sep, [facility] [place] [facility] [address] [id number] [place] [address]- 0020 Sep, [facility] [place] [facility] [address] [id number], [place] [address]- 0942 Sep, [facility] [place] [facility] [address] [id number], [place] [address]- 7960 Sep, [facility] [place] [facility] [address] [id number] [place] [address]- 4538 Sep, [facility] [place] [facility] [address] [id number] [place] [address]- 9136 Sep, [facility] [place] [facility] [address] [id number], [place] [address]- 3057 Sep, [facility] [place] [facility] [address] [id number], [place] [address]- 1158 08 Sep, 2014 [facility] [place] [facility] [address] [id number] [place] [address]- 4586 Sep, [facility] [place] [facility] [address] [id number] [place] [address]- 1216 Sep, [facility] [place] [facility] [address] [id number] [place] [address]- 3112 Sep, [facility] [place] [facility] [address] [id number] [place] [address]- 3349 Sep, [facility] [place] [facility] [address] [id number] [place] [address]- 1713 Sep, [facility] [place] [facility] [address] [id number] [place] [address]- 5605 Aug, [facility] [place] [facility] [address] [id number] [place] [address]- 0528 Aug, [facility] [place] [facility] [address] [id number] [place] [address]- 4748 Aug, [facility] [place] [facility] [address] [id number] [place] [address]- 8120 Aug, [facility] [place] [facility] [address] [id number] [place] [address]- 8492 Aug, [facility] [place] [facility] [address] [id number] [place] [address]- 1735 Aug, [facility] [place] [facility] [address] [id number] [place] [address]- 1783 Aug, [facility] [place] [facility] [address] [id number] [place] [address]- 3856 Aug, [facility] [place] [facility] [address] [id number] [place] [address]- 5583 Aug, [facility] [place] [facility] [address] [id number] [place] [address]- 7524 Aug, [facility] [place] [facility] [address] [id number] [place] [address]- 8108 Aug, [facility] [address] [place] [id number] Aug, [facility] [address] [id number] [place] [address]- 5206 Aug, [facility] [address] [id number] [place] [address]- 5522 Aug, [facility] [address] [id number] [place] [address]- 2213 Aug, [facility] [address] [id number] [place] [address]- 7553 Aug, [facility] [address] [id number] [place] [address]- 7359 Aug, [facility] [address] [id number] [place] [address]- 9331 Aug, [facility] [address] [id number] [place] [address]- 8578 Aug, [facility] [address] [id number] [place] [address]- 0564 Aug, [facility] [address] [id number] [place] [address]- 1458 Aug, [facility] [address] [id number] [place] [address]- 7902 Aug, [facility] [address] [id number] [place] [address]- 6039 Aug, [facility] [address] [id number] [place] [address]- 6770 Aug, [facility] [address] [id number] [place] [address]- 7718 Aug, [facility] [address] [id number] [place] [address]- 6709 Aug, [facility] [place] [facility] [address] [id number] [place] 1590 Aug, [facility] [place] [facility] [address] [id number] [place] 0575 Aug, [facility] [place] [facility] [address] [id number] [place] [address]- 2580 Aug, [facility] [place] [facility] [address] [id number] [place] [address]- 7652 Aug, [facility] [place] [facility] [address] [id number] [place] [address]- 2541 Jul, [facility] [place] [facility] [address] [id number] [place] [address]- 3883 Jul, [facility] [place] [facility] [address] [id number] [place] [address]- 3220 Jul, [facility] [place] [facility] [address] [id number] [place] [address]- 3481 Jul, [facility] [place] [facility] [address] [id number] [place] [address]- 0998 Jul, [facility] [place] [facility] [address] [id number] [place] [address]- 8216 Jul, [facility] [place] [facility] [address] [id number] [place] [address]- 2525 Jul, [facility] [place] [facility] [address] [id number] [place] [address]- 1134 Jul, [facility] [place] [facility] [address] [id number] [place] [address]- 0443 Jul, [facility] [place] [facility] [address] [id number] [place] [address]- 8904 Jul, [facility] [place] [facility] [address] [id number] [place] [address]- 9872 Jun, [facility] [place] [facility] [address] [id number] [place] [address]- 1522 Jun, [facility] [place] [facility] [address] [id number] [place] [address]- 6443 Jun, [facility] [place] [facility] [address] [id number] [place] [address]- 4643 16 Jun, 2014 [facility] [place] [facility] [address] [id number] [place] [address]- 7376 Jun, [facility] [place] [facility] [address] [id number] [place] [address]- 0006 Jun, [facility] [place] [facility] [address] [id number] [place] [address]- 0970 Jun, [facility] [place] [facility] [address] [id number] [place] [address]- 0635 Jun, [facility] [place] [facility] [address] [id number] [place] [address]- 6948 Jun, [facility] [place] [facility] [address] [id number] [place] [address]- 5204 Jun, [facility] [place] [facility] [address] [id number] [place] [address]- 3073 29 May, 2014 [facility] [place] [facility] [address] [id number] [place] [address]- 2112 29 Sep, 2013 [facility] [place] [facility] [address] [id number] [place] [address]- 1410 26 May, 2013 [facility] [place] [facility] [address] [id number] [place] [address]- 6336 26 Sep, 2013 [facility] [place] [facility] [address] [id number] [place] [address]- 7289 17 May, 2013 [facility] [place] [facility] [address] [id number] [place] [address]- 8977 17 May, 2013 [facility] [place] [facility] [address] [id number] [place] [address]- 8767 15 May, 2013 [facility] [place] [facility] [address] [id number] [place] [address]- 9122 15 May, 2013 [facility] [place] [facility] [address] [id number] [place] [address] 2546 15 May, 2013 [facility] [place] [facility] [address] [id number] [place] [address]- 2546 15 May, 2013 [facility] [place] [facility] [address] [id number] [place] [address]- 2946 10 May, 2013 [facility] [place] [facility] [address] [id number] [place] [address]- 2541 10 May, 2013 [facility] [place] [facility] [address] [id number] [place] [address]- 7635 09 May, 2013 [facility] [place] [facility] [address] [id number] [place] [address]- 8761 May, 2013 [facility] [place] [facility] [address] [id number] [place] [address]- 7998 May, 2013 [facility] [place] [facility] [address] [id number] [place] [address]- 2192 May, 2013 [facility] [place] [facility] [address] [id number] [place] [address]- 4558 Apr, [facility] [place] [facility] [address] [id number] [place] [address]- 9202 Apr, [facility] [place] [facility] [address] [id number] [place] [address]- 2545 Apr, [facility] [place] [facility] [address] [id number] [place] [address]- 254 Apr, [facility] [place] [facility] [address] [id number] [place] [address]- 9085 Apr, [facility] [place] [facility] [address] [id number] [place] [address]- 8302 Apr, [facility] [place] [facility] [address] [id number] [place] [address]- 4580 Apr, [facility] [place] [facility] [address] [id number] [place] [address]- 4875 Apr, [facility] [place] [facility] [address] [id number] [place] [address]- 1059 Apr, [facility] [place] [facility] [address] [id number] [place] [address]- 6646 Apr, [facility] [place] [facility] [address] [id number] [place] [address]- 1735 Apr, [facility] [place] [facility] [address] [id number] [place] [address]- 1414 Apr, [facility] [place] [facility] [address] [id number] [place] [address]- 9314 Apr, [facility] [place] [facility] [address] [id number] [place] [address]- 1899 Apr, [facility] [place] [facility] [address] [id number] [place] [address]- 5847 Apr, [facility] [place] [facility] [address] [id number] [place] [address]- 4096 Mar, [facility] [place] [facility] [address] [id number] [place] [address]- 6580 Mar, [facility] [place] [facility] [address] [id number] [place] [address]- 8811 Mar, [facility] [place] [facility] [address] [id number] [place] [address]- 4469 Mar, [facility] [place] [facility] [address] [id number] [place] [address]- 2551 Mar, [facility] [place] [facility] [address] [id number] [place] [address]- 6869 Mar, [facility] [place] [facility] [address] [id number] [place] [address]- 2751 Mar, [facility] [place] [facility] [address] [id number] [place] [address]- 5642 Mar, 2013 [facility] [place] [facility] [address] [id number] [place] [address]- 0656 Mar, 2013 [facility] [place] [facility] [address] [id number] [place] [address]- 5514 Mar, 2013 [facility] [place] [facility] [address] [id number] [place] [address]- 0683 Mar, 2013 [facility] [place] [facility] [address] [id number] [place] [address]- 0003 Mar, 2013 [facility] [place] [facility] [address] [id number] [place] [address]- 9614 Mar, 2013 [facility] [place] [facility] [address] [id number] [place] [address]- 4724 Mar, 2013 [facility] [place] [facility] [address] [id number] [place] [address]- 3614 Mar, 2013 [facility] [place] [facility] [address] [id number] [place] [address]- 9712 Mar, 2013 [facility] [place] [facility] [address] [id number] [place] [address]- 7001 Mar, [facility] [place] [facility] [address] [id number] [place] [address]- 3132 Mar, [facility] [place] [facility] [address] [id number] [place] [address]- 5487 Feb, [facility] [place] [facility] [address] [id number] [place] [address]- 0503 Feb, [facility] [place] [facility] [address] [id number] [place] [address]- 7584 Feb, [facility] [place] [facility] [address] [id number] [place] [address]- 1406 Feb, [facility] [place] [facility] [address] [id number] [place] [address]- 9297 Feb, [facility] [place] [facility] [address] [id number] [place] [address]- 5345 Feb, [facility] [place] [facility] [address] [id number] [place] [address] Feb, [facility] [place] [facility] [address] [id number] [place] [address] Feb, [facility] [place] [facility] [address] [id number] [place] [address] Feb, [facility] [place] [facility] [address] [id number] [place] [address] Feb, [facility] [place] [facility] [address] [id number] [place] [address] Feb, [facility] [place] [facility] [address] [id number] [place] [address] Feb, [facility] [place] [facility] [address] [id number] [place] [address] Feb, [facility] [place] [facility] [address] [id number] [place] [address] Feb, [facility] [place] [facility] [address] [id number] [place] [address] January, [facility] [place] [facility] [address] [id number] [place] [address] 1566 January, [facility] [place] [facility] [address] [id number] [place] [address] January, [facility] [place] [facility] [address] [id number] [place] [address] January, [facility] [place] [facility] [address] [id number] [place] [address] January, [facility] [place] [facility] [address] [id number] [place] [address] 7836 January, [facility] [place] [facility] [address] [id number] [place] [address] 57[address] January, [facility] [place] [facility] [address] [id number] [place] [address] January, [facility] [place] [facility] [address] [id number] [place] [address] 67[address] January, [facility] [place] [facility] [address] [id number] [place] [address] January, [facility] [place] [facility] [address] [id number] [place] [address]- 5965 January, [facility] [place] [facility] [address] [id number] [place] [address] January, [facility] [place] [facility] [address] [id number] [place] [address] 1610 January, [facility] [place] [facility] [address] [id number] [place] [address] 12[address] January, [facility] [place] [facility] [address] [id number] [place] [address]- 8931 Dec, [facility] [place] [facility] [address] [id number] [place] [address] 5870 Dec, [facility] [place] [facility] [address] [id number] [place] [address]- 6148 Dec, [facility] [place] [facility] [address] [id number] [place] [address]227 Dec, [facility] [place] [facility] [address] [id number] [place] [address]59 Dec, [facility] [place] [facility] [address] [id number] [place] [address] 7848 Dec, [facility] [place] [facility] [address] [id number] [place] [address]- 8[address] Dec, [facility] [place] [facility] [address] [id number] [place] [address] 75[address] Dec, [facility] [place] [facility] [address] [id number] [place] [address]- [address]76 Dec, [facility] [place] [facility] [address] [id number] [place] [address] 9666 Dec, [facility] [place] [facility] [address] [id number] [place] [address] 17[address] Nov, [facility] [place] [facility] [address] [id number] [place] [address] 9[address] Nov, [facility] [place] [facility] [address] [id number] [place] [address] 7641 Nov, [facility] [place] [facility] [address] [id number] [place] [address]- 1043 Nov, [facility] [place] [facility] [address] [id number] [place] [address]- 65[address] Nov, [facility] [place] [facility] [address] [id number] [place] [address] 9747 Nov, [facility] [place] [facility] [address] [id number] [place] [address]- 6565 Nov, [facility] [place] [facility] [address] [id number] [place] [address]120 Nov, [facility] [place] [facility] [address] [facility] [id number] [place] [address] 3418 Nov, [facility] [place] [facility] [address] [id number] [place] [address]- 4416 Nov, [facility] [place] [facility] [address] [id number] [place] [address]- 49[address] Oct, [facility] [place] [facility] [address] [id number] [place] [address]148 Oct, [facility] [place] [facility] [address] [id number] [place] [address]- 1382 Oct, [facility] [place] [facility] [address] [id number] [place] [address]- 4998 Oct, [facility] [place] [facility] [address] [id number] [place] [address]- 7399 Oct, [facility] [place] [facility] [address] [id number] [place] [address] 3736 Oct, [facility] [place] [facility] [address] [id number] [place] [address]- 1636 Oct, [facility] [place] [facility] [address] [id number] [place] [address]- 4531 Oct, [facility] [place] [facility] [address] [id number] [place] [address] 2002 Oct, [facility] [place] [facility] [address] [id number] [place] [address] 7502 Oct, [facility] [place] [facility] [address] [id number] [place] [address]- 9868 Oct, [facility] [place] [facility] [address] [id number] [place] [address] 7338 Oct, [facility] [place] [facility] [address] [id number] [place] [address]- 5354 Oct, [facility] [place] [facility] [address] [id number] [place] [address] 6119 Oct, [facility] [place] [facility] [address] [id number] [place] [address]- 0420 Sep, [facility] [place] [facility] [address] [id number] [place] [address]- 0848 Sep, [facility] [place] [facility] [address] [id number] [place] [address]- 0760 Sep, [facility] [place] [facility] [address] [id number] [place] [address]- 9442 Sep, [facility] [place] [facility] [address] [id number] [place] [address]- 8831 Sep, [facility] [place] [facility] [address] [id number] [place] [address]- [address] 14 Sep, 2013 [facility] [facility] [address] [id number] [place] [address] 14 Sep, 2013 [facility] [place] [facility] [address] [id number] [place] [address] 29[address] 14 Sep, 2013 [facility] [address] [id number] [place] [address] 8[address] 08 Sep, 2013 [facility] [place] [facility] [address] [id number] [place] [address] 08 Sep, 2013 [facility] [address] [id number] [place] [address] Aug, [facility] [address] [id number] [place] [address] 77[address] Aug, [facility] [address] [id number] [place] [address] 65[address] Jul, [facility] [address] [id number] [place] [address] 49[address] Jul, [facility] [place] [facility] [address] [id number] [place] [address] 59[address] Jul, [facility] [address] [id number] [place] [address] 0581 Jul, [facility] [place] [facility] [address] [id number] [place] [address] 9244 Jul, [facility] [place] [facility] [address] [id number] [place] [address] 9144 Jul, [facility] [place] [facility] [address] [id number] [place] [address]- 0056 Jul, [facility] [place] [facility] [address] [id number] [place] [address] 4159 Jul, [facility] [place] [facility] [address] [id number] [place] [address]- 4582 Jul, [facility] [place] [facility] [address] [id number] [place] [address]- 5942 Jul, [facility] [place] [facility] [address] [id number] [place] [address]- 0739 Jul, [facility] [place] [facility] [address] [id number] [place] [address]- 4963 Jul, [facility] [place] [facility] [address] [id number] [place] [address]- 3067 Jul, [facility] [place] [facility] [address] [id number] [place] [address]- 3670 Jul, [facility] [place] [facility] [address] [id number] [place] [address]- 3632 Jul, [facility] [place] [facility] [address] [id number] [place] [address]- 7343 Jul, [facility] [place] [facility] [address] [id number], [place] [address]- 3580 Jul, [facility] [place] [facility] [address] [id number] [place] [address]- 3109 Jul, [facility] [place] [facility] [address] [id number], [place] [address]- 00[address] Jul, [facility] [place] [facility] [address] [id number], [place] [address]- 3283 Jun, [facility] [place] [facility] [address] [id number], [place] [address] 8730 Jun, [facility] [place] [facility] [address] [id number], [place] [address]- 4800 Jun, [facility] [place] [facility] [address] [id number], [place] [address]- 4[address] Jun, [facility] [place] [facility] [address] [id number], [place] [address]- 1142 Jun, [facility] [place] [facility] [address] [id number] [place] [address]- 3849 16 Jun, 2013 [facility] [place] [facility] [address] [id number] [place] [address]- 0879 10 Jun, 2013 [facility] [place] [facility] [address] [id number] [place] [address]- 8637 10 Jun, 2013 [facility] [place] [facility] [address] [id number] [place] [address]- 4442 09 Jun, 2013 [facility] [place] [facility] [address] [id number] [place] [address]- 7709 09 Jun, 2013 [facility] [place] [facility] [address] [id number] [place] [address]- 3214 Jun, [facility] [place] [facility] [address] [id number] [place] [address]- 8629 26 May, 2012 [facility] [place] [facility] [address] [id number] [place] [address]- 4866 25 May, 2012 [facility] [place] [facility] [address] [id number] [place] [address]- 2320 19 May, 2012 [facility] [place] [facility] [address] [id number] [place] [address]- 9461 17 May, 2012 [facility] [place] [facility] [address] [id number] [place] [address]- 9886 11 May, 2012 [facility] [place] [facility] [address] [id number] [place] [address]- 0665 10 May, 2012 [facility] [place] [facility] [address] [id number] [place] [address]- 2544 09 May, 2012 [facility] [place] [facility] [address] [id number] [place] [address]- 7788 05 May, 2012 [facility] [place] [facility] [address] [id number] [place] [address]- 0263 30 Apr, 2013 [facility] [place] [facility] [address] [id number] [place] [address]- 4330 29 Apr, 2013 [facility] [place] [facility] [address] [id number] [place] [address]- 4992 Apr, [facility] [place] [facility] [address] [id number] [place] [address]- 4050 Apr, [facility] [place] [facility] [address] [id number] [place] [address]- 6213 Apr, [facility] [place] [facility] [address] [id number] [place] [address]- 3929 Mar, [facility] [place] [facility] [address] [id number] [place] [address]- 4338 Mar, [facility] [place] [facility] [address] [id number] [place] [address]- 7066 Mar, [facility] [place] [facility] [address] [id number] [place] [address]- 6868 Mar, [facility] [place] [facility] [address] [id number] [place] [address]- 8259 Mar, [facility] [place] [facility] [address] [id number] [place] [address]- 1099 Mar, [facility] [place] [facility] [address] [id number] [place] [address]- 5278 Mar, [facility] [place] [facility] [address] [id number] [place] [address]- 2238 Mar, [facility] [place] [facility] [address] [id number] [place] [address]- 2713 Feb, [facility] [place] [facility] [address] [id number] [place] [address]- 0815 Feb, [facility] [place] [facility] [address] [id number] [place] [address]- 7472 January, [facility] [place] [facility] [address] [id number] [place] [address]- 2076 January, [facility] [place] [facility] [address] [id number] [place] [address]- 4871 10 Dec, 2012 [facility] [address] [id number] [place] [address]- 0157 09 Dec, 2012 [facility] [address] [id number] [place] [address]- 4344 23 Nov, 2012 [facility] [address] [facility] [id number] [place] [address]- 5170 Nov, [facility] [address] [id number] [place] [address]- 5511 Nov, [facility] [address] [id number] [place] [address]- 7033 Nov, [facility] [address] [facility] [id number] [place] [address]- 0714 27 Oct, 2012 [facility] [address] [facility] [id number] [place] [address]- 8842 Oct, [facility] [address] [id number] [place] [address]- 1447 26 Oct, 2012 [facility] [address] [id number] [place] [address]- 3639 26 Oct, 2012 [facility] [address] [facility] [id number] [place] [address]- 1920 16 Oct, 2012 [facility] [address] [id number], [place] [address]- 3541 14 Oct, 2012 [facility] [place] [facility] [address] [id number], [place] [address]- 5169 08 Oct, 2012 [facility] [place] [facility] [address] [id number] [place] [address]- 2210 07 Oct, 2012 [facility] [place] [facility] [address] [facility] [id number] 8226 03 Oct, 2012 [facility] [place] [facility] [address] [facility] [id number], [place] [address]- 0790 Sep, [facility] [place] [facility] [address] [id number] [place] [address]- 7147 29 Sep, 2012 [facility] [address] [id number] [place] [address]- 0109 23 Sep, 2012 [facility] [address] [id number] [place] [address]- 0197 Sep, [facility] [address] [id number] [place] [address]- 6322 17 Sep, 2012 [facility] [address] [id number] [place] [address]- 0706 Sep, [facility] [address] [id number] [place] [address]- 6120 Sep, [facility] [address] [id number] [place] [address]- 3620 Sep, [facility] [address] [id number] [place] [address]- 9258 Aug, [facility] [address] [id number] [place] [address]- 9626 31 Aug, 2012 [facility] [address] [id number] [place] [address]- 9469 Aug, [facility] [address] [id number] [place] [address]- 1081 Aug, [facility] [address] [id number] [place] [address]- 2580 Aug, [facility] [address] [id number] [place] [address]- 1636 Aug, [facility] [place] [facility] [address] [id number] [place] [address]- 2324 Aug, [facility] [place] [facility] [address] [id number] [place] [address]- 9507 18 Aug, 2012 [facility] [place] [facility] [address] [id number], [place] [address]- 3295 Jul, [facility] [place] [facility] [address] [id number] [place] [address]- 7993 Jul, [facility] [place] [facility] [address] [id number], [place] [address]- 8044 Jul, [facility] [place] [facility] [address] [facility] [id number] [place] [address]- 0319 Jul, [facility] [place] [facility] [address] [id number], [place] [address]- 5181 Jul, [facility] [place] [facility] [address] [id number] [place] [address]- 9412 Jul, [facility] [place] [facility] [address] [id number], [place] [address]- 8459 Jun, [facility] [place] [facility] [address] [id number], [place] [address]- 5243 Jun, [facility] [place] [facility] [address] [id number], [place] [address]- 9811 Jun, [facility] [place] [facility] [address] [id number], [place] [address]- 3962 Jun, [facility] [place] [facility] [address] [id number], [place] [address]- 7369 Jun, [facility] [place] [facility] [address] [id number], [place] [address]- 8429 Jun, [facility] [place] [facility] [address] [id number], [place] [address]- 3461 19 Jun, 2012 [facility] [place] [facility] [address] [id number], [place] [address]- 1683 Jun, [facility] [place] [facility] [address] [facility] [id number], [place] [address]- 3939 Jun, [facility] [place] [facility] [address] [facility] [id number], [place] [address]- 8667 26 May, 2012 [facility] [place] [facility] [address] [id number] [place] [address]- 8614 24 May, 2012 [facility] [place] [facility] [address] [id number] [place] [address]- 7135 May, [facility] [place] [facility] [address] [id number] [place] [address]- 8320 Apr, [facility] [place] [facility] [address] [id number] [place] [address]- 7269 Apr, [facility] [place] [facility] [address] [id number] [place] [address]- 8879 Apr, [facility] [place] [facility] [address] [id number] [place] [address]- 5777 Apr, [facility] [place] [facility] [address] [id number] [place] [address]- 5170 Apr, [facility] [place] [facility] [address] [id number] [place] [address]- 8538 Apr, [facility] [place] [facility] [address] [id number] [place] [address]- 4660 Mar, [facility] [place] [facility] [address] [id number] [place] [address]- 1074 Mar, [facility] [place] [facility] [address] [id number] [place] [address]- 5034 Mar, [facility] [place] [facility] [address] [id number] [place] [address]- 8405 Mar, [facility] [place] [facility] [address] [id number] [place] [address]- 4674 Feb, [facility] [place] [facility] [address] [id number] [place] [address]- 3197 Feb, [facility] [place] [facility] [address] [id number] [place] [address]- 0300 Feb, [facility] [place] [facility] [address] [id number] [place] [address]- 9183 Feb, [facility] [address] [id number] [place] [address]- 9749 Feb, [facility] [place] [facility] [address] [id number] [place] [address]- 5176 January, [facility] [place] [facility] [address] [id number] [place] [address]- 0564 January, [facility] [place] [facility] [address] [id number] [place] [address]- 6516 January, [facility] [address] [id number] [place] [address]- 2990 January, [facility] [place] [facility] [address] [id number] [place] [address]- 7086 January, [facility] [place] [facility] [address] [id number] [place] [address]- 7256 January, [facility] [place] [facility] [address] [id number] [place] [address]- 9788 Dec, [facility] [place] [facility] [address] [id number] [place] [address]- 5299 Dec, [facility] [place] [facility] [address] [id number] [place] [address]- 2935 Dec, [facility] [place] [facility] [address] [id number] [place] [address]- 4726 Dec, [facility] [place] [facility] [address] [id number], [place] [address]- 1143 Dec, [facility] [place] [facility] [address] [id number] [place] [address]- 3178 Nov, [facility] [place] [facility] [address] [id number] [place] [address]- 4526 Nov, [facility] [place] [facility] [address] [id number] [place] [address]- 3646 Nov, [facility] [place] [facility] [address] [id number] [place] [address]- 7024 Nov, [facility] [address] [id number] [place] [address]- 4996 29 Oct, 2011 [facility] [place] [facility] [address] [id number] [place] [address]- 5696 28 Oct, 2011 [facility] [place] [facility] [address] [id number] [place] [address]- 4516 24 Oct, 2011 [facility] [place] [facility] [address] [id number] [place] [address]- 2366 Oct, [facility] [place] [facility] [address] [id number] [place] [address]- 1106 08 Oct, 2011 [facility] [place] [facility] [address] [id number] [place] [address]- 2496 Sep, [facility] [place] [facility] [address] [id number] [place] [address]- 1012 Sep, [facility] [place] [facility] [address] [id number] [place] [address]- 1100 Sep, [facility] [place] [facility] [address] [id number] [place] [address]- 5175 Sep, [facility] [place] [facility] [address] [facility] [id number] [place] [address]- 3713 Sep, [facility] [place] [facility] [address] [id number] [place] [address]- 8426 Sep, [facility] [place] [facility] [address] [id number] [place] [address]- 7884 Aug, [facility] [place] [facility] [address] [id number] [place] [address]- 1706 Aug, [facility] [place] [facility] [address] [id number] [place] [address] 2546 Aug, [facility] [place] [facility] [address] [id number] [place] [address]- 4380 Jul, [facility] [place] [facility] [address] [id number] [place] [address]- 4847 Jul, [facility] [place] [facility] [address] [id number] [place] [address]- 0009 Jul, [facility] [place] [facility] [address] [id number] [place] [address]- 5091 Jul, [facility] [place] [facility] [address] [id number] [place] [address]- 0989 Jun, [facility] [place] [facility] [address] [id number] [place] [address]- 6719 Jun, [facility] [place] [facility] [address] [id number] [place] [address]- 9012 Jun, [facility] [place] [facility] [address] [id number] [place] [address]- 8437 Jun, [facility] [place] [facility] [address] [id number] [place] [address]- 7240 Jun, [facility] [place] [facility] [address] [id number] [place] [address]- 0163 Jun, [facility] [place] [facility] [address] [id number] [place] [address]- 0356 Mar, [facility] [place] [facility] [address] [id number] [place] [address]- 1426 Dec, [facility] [place] [facility] [address] [id number] [place] [address]- 2704 Dec, [facility] [place] [facility] [address] [id number] [place] [address]- 4484 Nov, [facility] [place] [facility] [address] [id number] [place] [address]- 8735 16 Nov, 2010 [facility] [place] [facility] [address] [id number] [place] [address]- 0485 10 Sep, 2010 [facility] [place] [facility] [address] [id number] [place] [address]- 0373 31 Aug, 2010 [facility] [place] [facility] [address] [id number] [place] [address] 2546 29 Aug, 2010 [facility] [place] [facility] [address] [id number] [place] [address] 2546 29 Aug, 2010 [facility] [place] [facility] [address] [id number] [place] [address] 2546 29 Aug, 2010 [facility] [place] [facility] [address] [id number] [place] [address] 2546 27 Aug, 2010 [facility] [place] [facility] [address] [id number] [place] [address] 2546 14 Aug, 2010 [facility] [place] [facility] [address] [id number] [place] [address] 2546 08 Aug, 2010 [facility] [place] [facility] [address] [id number] [place] [address]- 6896 08 Aug, 2010 [facility] [place] [facility] [address] [id number] [place] [address] 2547 07 Aug, 2010 [facility] [place] [facility] [address] [id number] [place] [address] 2546 06 Aug, 2010 [facility] [place] [facility] [address] [id number] [place] [address] 2546 06 Aug, 2010 [facility] [place] [facility] [address] [id number] [place] [address] 2546 Aug, [facility] [place] [facility] [address] [id number], [place] [address] 2546 30 Jul, 2010 [facility] [place] [facility] [address] [id number] [place] [address] 2546 30 Jul, 2010 [facility] [place] [facility] [address] [id number] [place] [address]46 30 Jul, 2010 [facility] [place] [facility] [address] [id number] [place] [address]46 17 Jul, 2010 [facility] [place] [facility] [address] [id number] [place] [address] 08 Jul, 2010 [facility] [address] [id number] [place] [address] Jul, [facility] [place] [facility] [address] [id number] [place] [address] 24 Jun, 2010 [facility] [address] [id number] [place] [address] Jun, [facility] [address] [id number] [place] [address] Jun, [facility] [id number] [place] [address], [place] [address] Jun, [facility] [address] [id number] [place] [address] Apr, [facility] [address] [id number] [place] [address] Mar, [facility] [address] [id number] [place] [address] Feb, [facility] [address] [facility] [id number] [place] [address] January, [facility] [address] [facility] [id number] [place] [address] 15 Dec, 2009 [facility] [address] [id number] [place] [address] Nov, [facility] [address] [id number] [place] [address] Aug, [facility] [place] [facility] [address] [id number] [place] [address] Aug, [facility] [place] [facility] [address] [id number] [place] [address]46 Aug, [facility] [address] [id number] [place] [address] Jul, [facility] [address] [facility] [id number], [place] [address] Jul, [facility] [address] [facility] [id number], [place] [address] Jul, [facility] [address] [facility] [id number], [place] [address] Jun, [facility] [address] [facility] [id number], [place] [address] Jun, [facility] [address] [facility] [id number], [place] [address] Jun, [facility] [address] [facility] [id number], [place] [address] Jun, [facility] [id number], [place] [address] Jun, [facility] [id number], [place] [address] Jun, [facility] [id number], [place] [address] Apr, [facility] [id number], [place] [address] Apr, [facility] [address] [id number], [place] [address] Feb, [facility] [address] [id number], [place] [address] January, [facility] [address] [id number], [place] [address] Dec, IMMUNIZATIONS No Known Immunizations SOCIAL HISTORY Never Assessed REASON FOR VISIT Requests return call PLAN OF CARE VITAL SIGNS MEDICATIONS Unknown [...] obesity Medical History skin cancer-basal cell R amish (removed) Medical History Arthritis Medical History degenerative [...] 2009 Surgical History colonoscopy 2009 ([facility]), 2013 ([facility]) Surgical History heart 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 04/2014 Surgical History carotid US 05/2014 Surgical History resection of skin cancer from Right amish Surgical History Biopsy of Lung Bilateral/Left lung lymph node 09/2016 Surgical History Bone Marrow Biopsy Surgical History port in the right chest wall 12/2016 Hospitalization History [facility] low potassium, low magnesium, chest painina 01/2015 Hospitalization History inability to urinate 09/16/[address] [facility] mental health early Hospitalization History hyperkalemia 10/2017 Hospitalization History fluid in lung
--- OUTSIDE RECORDS SUMMARY | 2018-08-08 12:59 | XMS REPORT ---
Author Author NOEMI WASHBURN Organization [facility] Address [address] [place] [address] Care Team Providers Care Information Technology Account Manager Name Role Phone NOEMI WASHBURN Unavailable PROBLEMS Type Condition ICD9-CM Code XBP71-WE Code Onset Dates Condition Status SNOMED Code Problem Chronic lymphocytic leukemia C91.10 Active 41224019 Problem Insomnia, unspecified type G47.00 Active 497579767 Problem Lymphocytosis D72.820 Active 43528820 Problem Anxiety F41.9 Active 23651618 Problem Eye exam abnormal R93.8 Active 456511559 Problem Morbid obesity E66.01 Active 561511377 Problem Diabetic polyneuropathy associated with type 2 diabetes mellitus E11.42 Active 47547840 Problem Essential hypertension I10 Active 39730112 Problem Falling R29.6 Active 872207694 Problem 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 Active 254977818 Problem Cough R05 Active 99258995 Problem Dysuria R30.0 Active 65211411 Problem Eustachian tube dysfunction, unspecified laterality H69.80 Active 93198199 Problem Bilateral primary osteoarthritis of knee M17.0 Active 339216668 Problem Polyneuropathy associated with underlying disease G63 Active 893485640 Problem Anemia of chronic illness D63.8 Active 635935292 Problem Retinal edema H35.81 Active 7518035 Problem DM neuro manif type II E11.49 Active 48832799 Problem Diabetes E11.9 Active 57364840 Problem Hypokalemia E87.6 Active 56720150 Problem Benign prostatic hyperplasia with lower urinary tract symptoms, unspecified morphology N40.1 Active 108702926 Problem Reactive airway disease J45.909 Active 497058176490 Problem Bipolar I disorder, most recent episode (or current) mixed, moderate F31.62 Active 13337747 Problem Chronic pain G89.29 Active 42524008 Problem Leukocytosis D72.829 Active 231259187 ALLERGIES No Information ENCOUNTERS Encounter Location Date Diagnosis [facility] [address], [place] [address] Dec, [facility] [id number] [place] [address] 37953- 8316 Dec, [facility] [id number] [place] [address] 67873- 9039 Dec, [facility] [id number] [place] [address] 31562- 0887 Nov, Bipolar I disorder, most recent episode (or current) mixed, moderate F31.62 [facility] [id number] [place] [address] 08162- 1763 Nov, Chronic pain G89.29 [facility] [id number] [place] [address] 06457- 6220 Nov, Bipolar I disorder, most recent episode (or current) mixed, moderate F31.62 [facility] [id number] [place] [address] 65747- 1185 Nov, Hypokalemia E87.6 [facility] [id number] [place] [address] 31941- 6898 Nov, Bipolar I disorder, most recent episode (or current) mixed, moderate F31.62 [facility] [id number] [place] [address] 54873- 1869 Oct, Chronic pain G89.29 [facility] [id number] [place] [address] 87206- 1742 Oct, BMI 50.0-59.9, adult Z68.43 and Bipolar I disorder, most recent episode (or current) mixed, moderate F31.62 [facility] [id number] [place] [address] 07822- 6143 Oct, Bipolar I disorder, most recent episode (or current) mixed, moderate F31.62 [facility] [id number] [place] [address] 25328- 5066 Oct, [facility] [id number] [place] [address] 59761- 8169 Oct, Hypokalemia E87.6 [facility] [id number] [place] [address] 58835- 6725 Oct, DM neuro manif type II E11.49 [facility] [id number] [place] [address] 05616- 5980 Oct, Bipolar I disorder, most recent episode (or current) mixed, moderate F31.62 [facility] [address] 84381- 1549 Oct, Bipolar I disorder, most recent episode (or current) mixed, moderate F31.62 [facility] [id number] [place] [address] 94561- 1245 Oct, Hyperkalemia E87.5 ; Falling R29.6 ; BMI 50.0-59.9, adult Z68.43 and Acute left ankle pain M25.572 [facility] [id number] [place] [address] 98227- 9770 Oct, DM neuro manif type II E11.49 [facility] [id number] [place] [address] 03984- 4696 Oct, [facility] [id number] [place] [address] 48990- 4338 Sep, Chronic pain G89.29 [facility] [id number] [place] [address] 21832- 4242 Sep, [facility] [address] 33913- 5866 Sep, Bilateral primary osteoarthritis of knee M17.0 [facility] [id number] [place] [address] 21886- 6543 Sep, Generalized edema R60.1 [facility] [address] [place] [address]- 0683 16 Sep, 2017 Bipolar I disorder, most recent episode (or current) mixed, moderate F31.62 [facility] [id number] [place] [address] 24729- 9226 15 Sep, 2017 Hypoxia R09.02 ; Other hypervolemia E87.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 ; Anemia of chronic illness D63.8 and BMI 50.0- 59.9, adult Z68.43 [facility] [address] 63609- 7452 Sep, [facility] [address] 99981- 4370 Sep, Bipolar I disorder, most recent episode (or current) mixed, moderate F31.62 [facility] [address] 55731- 3349 Aug, Chronic pain G89.29 [facility] [address] 05164- 0744 Aug, Generalized edema R60.1 [facility] [address] 13933- 9837 Aug, [facility] [id number] [place] [address] 64180- 6788 Aug, [facility] [address] 53280- 7635 14 Aug, 2017 Bipolar I disorder, most recent episode (or current) mixed, moderate F31.62 [facility] [address] 65962- 7088 07 Aug, 2017 Bipolar I disorder, most recent episode (or current) mixed, moderate F31.62 [facility] [id number] [place] [address] 67219- 6662 Aug, Chronic pain G89.29 [facility] [address], [place] [address] 6253 Jul, Bipolar I disorder, most recent episode (or current) mixed, moderate F31.62 [facility] [address], [place] [address]- 4681 Jul, Bipolar I disorder, most recent episode (or current) mixed, moderate F31.62 and BMI 60.0-69.9, adult Z68.44 [facility] [id number] [place] [address] 92950- 1287 Jul, Bipolar I disorder, most recent episode (or current) mixed, moderate F31.62 [facility] [id number] [place] [address] 68838- 3925 Jul, Chronic pain G89.29 [facility] [id number] [place] [address] 84716- 9764 Jul, Bipolar I disorder, most recent episode (or current) mixed, moderate F31.62 [facility] [id number] [place] [address] 33834- 9370 Jun, Polyneuropathy associated with underlying disease G63 and Diabetes E11.9 [facility] [id number] [place] [address] 65272- 2962 Jun, Bipolar I disorder, most recent episode (or current) mixed, moderate F31.62 [facility] [id number] [place] [address] 00121- 5893 Jun, Chronic pain G89.29 [facility] [address], [place] [address]- 1419 May, Bipolar I disorder, most recent episode (or current) mixed, moderate F31.62 [facility] [address], [place] [address]- 8697 May, Bipolar I disorder, most recent episode (or current) mixed, moderate F31.62 [facility] [id number] [place] [address] 36145- 1055 20 May, 2017 Diabetic polyneuropathy associated with type 2 diabetes mellitus E11.42 [facility] [id number] [place] [address] 77081- 5190 18 May, 2017 Bipolar I disorder, most recent episode (or current) mixed, moderate F31.62 [facility] [id number] [place] [address] 71241- 8041 13 May, 2017 Bipolar I disorder, most recent episode (or current) mixed, moderate F31.62 [facility] [id number] [place] [address] 79923- 1721 12 May, 2017 Chronic pain G89.29 [facility] [id number] [place] [address] 66409- 6739 30 Apr, 2017 Bipolar I disorder, most recent episode (or current) mixed, moderate F31.62 [facility] [id number] [place] [address] 69803- 2250 Apr, [facility] [id number] [place] [address] 74186- 1128 Apr, Chronic pain G89.29 and DM neuro manif type II E11.49 [facility] [id number] [place] [address] 47058- 3324 Apr, [facility] [id number] [place] [address] 14021- 0748 Apr, Bipolar I disorder, most recent episode (or current) mixed, moderate F31.62 [facility] [id number] [place] [address] 86877- 2299 14 Apr, 2017 Chronic pain G89.29 [facility] [id number] [place] [address] 47147- 4082 Apr, Iliotibial band syndrome, left M76.32 [facility] [id number] [place] [address] 58869- 2890 Apr, Bipolar I disorder, most recent episode (or current) mixed, moderate F31.62 [facility] [id number] [place] [address] 34542- 2667 Mar, Bipolar I disorder, most recent episode (or current) mixed, moderate F31.62 [facility] [address] [place] [address] 53718- 1636 Mar, Bipolar I disorder, most recent episode (or current) mixed, moderate F31.62 [facility] [id number] [place] [address] 44196- 0974 Mar, [facility] [id number] [place] [address] 08804- 7746 Mar, Bipolar I disorder, most recent episode (or current) mixed, moderate F31.62 [facility] [id number] [place] [address] 84437- 5427 Mar, Chronic pain G89.29 [facility] [id number] [place] [address] 64800- 6330 Mar, Bipolar I disorder, most recent episode (or current) mixed, moderate F31.62 [facility] [id number] [place] [address] 17799- 9546 Mar, Bipolar I disorder, most recent episode (or current) mixed, moderate F31.62 [facility] [address] [place] [address] 09771- 2215 Mar, Acute pain of left knee M25.562 ; Left hip pain M25.552 ; Generalized edema R60.1 and Tongue swelling R22.0 [facility] [id number] [place] [address] 31323- 0630 Mar, [facility] [id number] [place] [address] 16677- 9555 Feb, Chronic pain G89.29 [facility] [id number] [place] [address] 10365- 9066 Feb, Diabetes E11.9 [facility] [address], [place] [address]- 6841 January, Chronic pain G89.29 [facility] [address], [place] [address]- 8475 January, [facility] [address], [place] [address]- 0836 January, Bipolar I disorder, most recent episode (or current) mixed, moderate F31.62 [facility] [id number] [place] [address] 94128- 0046 Dec, Bipolar I disorder, most recent episode (or current) mixed, moderate F31.62 [facility] [address], [place] [address]- 8212 Dec, Chronic pain G89.29 [facility] [id number] [place] [address] 05637- 7352 Dec, Bipolar I disorder, most recent episode (or current) mixed, moderate F31.62 [facility] [id number] [place] [address] 99369- 8052 Dec, Diabetes E11.9 ; Essential hypertension I10 ; Chronic pain G89.29 and Morbid obesity E66.01 [facility] [address], [place] [address]- 2585 Dec, [facility] [id number] [place] [address] 34958- 0543 Dec, Bipolar I disorder, most recent episode (or current) mixed, moderate F31.62 [facility] [address], [place] [address]- 4758 Dec, Bipolar I disorder, most recent episode (or current) mixed, moderate F31.62 [facility] [address], [place] [address]- 7247 Nov, Chronic pain G89.29 [facility] [address] [place] [address]- 7567 Nov, Bipolar I disorder, most recent episode (or current) mixed, moderate F31.62 [facility] [address], [place] [address]- 5476 Nov, [facility] [address], [place] [address]- 9738 Nov, Bipolar I disorder, most recent episode (or current) mixed, moderate F31.62 [facility] [address], [place] [address]- 0494 Nov, Bipolar I disorder, most recent episode (or current) mixed, moderate F31.62 [facility] [address], [place] [address]- 9384 Nov, [facility] [id number] [place] [address] 96211- 8563 Nov, [facility] [address], [place] [address]- 2923 Nov, [facility] [id number] [place] [address] 28013- 2299 Oct, Chronic pain G89.29 [facility] [address], [place] [address]- 1901 Oct, Bipolar I disorder, most recent episode (or current) mixed, moderate F31.62 [facility] [address], [place] [address]- 9866 Oct, [facility] [address], [place] [address]- 7367 Oct, Chronic pain G89.29 ; Diabetes E11.9 ; Anxiety F41.9 and 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 [facility] [address], [place] [address]- 0126 Oct, [facility] [address] [place] [address]- 9836 Oct, Diabetes E11.9 [facility] [id number] [place] [address] 56401- 2266 Oct, Bipolar I disorder, most recent episode (or current) mixed, moderate F31.62 [facility] [id number] [place] [address] 37784- 7956 Sep, Chronic pain G89.29 [facility] [id number] [place] [address] 70509- 6796 Sep, Chronic pain G89.29 [facility] [id number] [place] [address] 071933- 7336 Aug, Chronic pain G89.29 [facility] [id number] [place] [address] 17733- 3056 Jul, [facility] [id number] [place] [address] 59344- 2574 Jul, Diabetes E11.9 [facility] [id number] [place] [address] 90879- 5552 Jul, Chronic pain G89.29 [facility] [id number] [place] [address] 69275- 2472 Jul, Bipolar I disorder, most recent episode (or current) mixed, moderate F31.62 [facility] [address] [place] [address] 38618- 7071 Jun, Bipolar I disorder, most recent episode (or current) mixed, moderate F31.62 [facility] [address] [place] [address] 53516- 7936 Jun, [facility] [id number] [place] [address] 08883- 2172 Jun, Bipolar I disorder, most recent episode (or current) mixed, moderate F31.62 [facility] [id number] [place] [address] 41475- 7860 30 May, 2016 Insomnia, unspecified type G47.00 [facility] [id number] [place] [address] 24664- 9324 22 May, 2016 Bipolar I disorder, most recent episode (or current) mixed, moderate F31.62 [facility] [address] 49191- 4712 14 May, 2016 [facility] [facility] [address] 452900- 0944 08 May, 2016 Bipolar I disorder, most recent episode (or current) mixed, moderate F31.62 [facility] [address] 024616- 7678 May, Diabetes E11.9 and Essential hypertension I10 [facility] [address] 28158- 9079 Apr, Chronic pain G89.29 [facility] [address] 73937- 3094 Apr, Bipolar I disorder, most recent episode (or current) mixed, moderate F31.62 [facility] [address] 45818- 6316 Apr, [facility] [address] 72700- 0162 Apr, [facility] [address] 99532- 0927 Mar, Chronic pain G89.29 ; Headache, unspecified headache type R51 ; Neuropathy G62.9 ; Pain of right hip joint M25.551 and Essential hypertension I10 [facility] [address] 13939- 2833 Mar, Chronic pain G89.29 [facility] [id number] [place] [address] 13450- 3221 Mar, Bipolar I disorder, most recent episode (or current) mixed, moderate F31.62 [facility] [address] [place] [address] 60683- 0804 Feb, Bipolar I disorder, most recent episode (or current) mixed, moderate F31.62 and Insomnia, unspecified type G47.00 [facility] [id number] [place] [address] 58171- 3635 Feb, Chronic pain G89.29 [facility] [id number] [place] [address] 67679- 7294 Feb, Bipolar I disorder, most recent episode (or current) mixed, moderate F31.62 [facility] [address] 867893- 9039 January, Bipolar I disorder, most recent episode (or current) mixed, moderate F31.62 [facility] [id number] [place] [address] 23297- 5328 January, Chronic pain G89.29 [facility] [id number] [place] [address] 00953- 0349 January, Chronic pain G89.29 and Essential hypertension I10 [facility] [id number] [place] [address] 75154- 9995 January, Bipolar I disorder, most recent episode (or current) mixed, moderate F31.62 [facility] [id number] [place] [address] 65222- 3171 Dec, [facility] [id number] [place] [address] 32064- 8166 Dec, [facility] [id number] [place] [address] 00498- 5655 Dec, [facility] [id number] [place] [address] 71935- 6746 Dec, [facility] [id number] [place] [address] 36790- 2301 Nov, Reactive airway disease J45.909 [facility] [address], [place] [address]- 6001 Nov, [facility] [id number] [place] [address] 37401- 8743 Nov, [facility] [id number] [place] [address] 56475- 5770 30 Nov, 2015 [facility] [facility] [address] 43709- 9095 Nov, [facility] [id number] [place] [address] 55976- 4327 Nov, Onychomycosis B35.1 ; Hammertoe M20.40 ; [place] or callus L84 and DM neuro manif type II E11.49 [facility] [id number] [place] [address] 73425- 1891 Nov, Chronic pain G89.29 ; Leukocytosis D72.829 and Diabetes E11.9 [facility] [id number] [place] [address] 64734- 7102 Nov, [facility] [id number] [place] [address] 51800- 9200 Oct, Bronchitis J40 [facility] [id number] [place] [address] 77096- 7620 Oct, [facility] [id number] [place] [address] 12746- 8733 Oct, [facility] [id number] [place] [address] 90506- 7030 Oct, Mastoiditis, unspecified laterality H70.90 and Type 2 diabetes mellitus with complication E11.8 [facility] [address] [place] [address] 81113- 6858 Sep, [facility] [id number] [place] [address] 61119- 9888 Sep, Dysuria R30.0 ; Cough R05 ; Benign prostatic hyperplasia with lower urinary tract symptoms, unspecified morphology N40.1 ; Hypokalemia E87.6 and Eustachian tube dysfunction, unspecified laterality H69.80 [facility] [id number] [place] [address] 82702- 7841 Sep, Moderate mixed bipolar I disorder F31.62 [facility] [address] 32475- 6252 Sep, Hypokalemia E87.6 [facility] [address] 31537- 4978 Sep, [facility] [address] 18114- 1088 Sep, Upper respiratory tract infection, unspecified type J06.9 [facility] [address] 46709- 6841 Aug, [facility] [address] 93398- 6745 Aug, Dysuria R30.0 [facility] [address] 80306- 7119 Aug, [facility] [id number] [place] [address] 47857- 0526 Jul, [facility] [id number] [place] [address] 83085- 3612 Jul, [facility] [id number] [place] [address] 96538- 3298 Jul, [facility] [address] 81589- 1468 Jul, [facility] [address] 34942- 8462 Jun, [facility] [id number] [place] [address] 29610- 2590 Jun, [facility] [address], [place] [address]- 2716 Jun, [facility] [id number] [place] [address] 06580- 9107 May, [facility] [address] [place] [address] 00866- 2018 May, Bipolar I disorder, most recent episode (or current) mixed, moderate 296.62 [facility] [id number] [place] [address] 25882- 8173 May, [facility] [id number] [place] [address] 49614- 3206 May, Bipolar I disorder, most recent episode (or current) mixed, moderate 296.62 and Major depressive disorder, recurrent episode, severe, specified as with psychotic behavior 296.34 [facility] [id number] [place] [address] 33143- 4887 May, Bipolar I disorder, most recent episode (or current) mixed, moderate 296.62 [facility] [id number] [address] May, [facility] [id number] [place] [address] 33732- 2061 Apr, [facility] [id number] [address] Apr, [facility] [id number] [place] [address] 49432- 6961 Apr, Unspecified disorder of kidney and ureter 593.9 and Diabetes mellitus type 2, uncontrolled 250.02 [facility] [id number] [place] [address] 72554- 1914 Apr, [facility] [id number] [place] [address] 23286- [phone] Apr, [facility] [id number] [place] [place] [address] 8[address]42- 9035 Apr, [facility] [address], [place] [address] 7645 Apr, [facility] [id number] [place] [address] 03143- 5415 Apr, Diabetes mellitus type II, uncontrolled 250.02 [facility] [id number] [place] [address] 04263- 3244 Apr, [facility] [id number] [place] [address] 04077- 1561 Mar, [facility] [id number] [place] [address] 10195- 7323 Mar, [facility] [id number] [place] [address] 10619- 3493 Mar, [facility] [id number] [place] [address] 93320- 9571 Mar, Major depressive disorder, recurrent episode, severe, specified as with psychotic behavior 296.34 and Bipolar I disorder, most recent episode (or current) mixed, moderate 296.62 [facility] [id number] [place] [address] 45590- 4399 Mar, Diabetes 250.00 ; Anuria 788.5 ; Nausea and vomiting 787.01 and Diarrhea 787.91 [facility] [address], [place] [address] 2829 Mar, Diabetes 250.00 [facility] [id number] [place] [address] 05658- 5634 Mar, [facility] [address], [place] [address] 1031 Mar, Diabetes 250.00 [facility] [id number] [place] [address] 22511- 2969 Mar, [facility] [address], [place] [address]- 3096 Mar, [facility] [id number] [place] [address] 81611- 0335 Mar, [place] [address] [address]- 4611 Mar, [facility] [id number] [place] [address] 91804- 9379 Mar, Bipolar I disorder, most recent episode (or current) mixed, moderate 296.62 and Major depressive disorder, recurrent episode, severe, specified as with psychotic behavior 296.34 [place] [id number] [place] [address] 86181- 9165 Mar, Magnesium deficiency 275.2 ; Hypokalemia 276.8 ; Nausea & vomiting 787.01 and Diabetes mellitus type 2, uncontrolled 250.02 [place] [id number] [place] [address] 49153- 0292 Feb, [place] [address] 70978- 3311 Feb, Bipolar I disorder, most recent episode (or current) mixed, moderate 296.62 [place] [id number] [place] [address] 17571- 1829 Feb, Nausea and vomiting 787.01 ; Left elbow pain 719.42 ; Anuria 788.5 and Diabetes 250.00 [place] [id number] [place] [address] 10312- 2646 Feb, [place] [id number] [place] [address] 53885- 8148 Feb, Hypopotassemia 276.8 and Hypokalemia 276.8 [place] [address] 64384- 9659 Feb, Hypopotassemia 276.8 and Hypokalemia 276.8 [place] [id number] [place] [address] 20363- 7265 Feb, Seborrheic keratoses 702.19 [place] [address], [place] [address]- 7405 Feb, Hypopotassemia 276.8 and Low magnesium levels 275.2 [facility] [id number], [place] [address]- 5091 January, [facility] [id number], [place] [address]- 8950 January, [facility] [id number] [place] [address] 06706- 0654 January, [facility] [id number] [place] [address] 63709- 8182 January, Scalp lesion 709.9 [facility] [id number] [place] [address] 06955- 9160 January, [facility] [id number] [place] [address] 13849- 9948 Dec, Tear of medial cartilage or meniscus of knee, current 836.0 and 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 [facility] [address], [place] [address]- 4995 Dec, [facility] [id number] [place] [address] 94169- 7805 Dec, [facility] [address], [place] [address]- 0279 Dec, Squamous cell carcinoma, 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 [facility] [address], [place] [address]- 8723 Dec, [facility] [id number], [place] [address]- 5747 Dec, [facility] [id number], [place] [address]- 3973 Nov, [facility] [address], [place] [address]- 5523 Nov, [facility] [place] [facility] [address] [id number] [place] [address]- 5002 Nov, [facility] [place] [facility] [address] [id number] [place] [address]- 2583 Nov, [facility] [place] [facility] [address] [id number] [place] [address]- 2016 Nov, 2014 [facility] [place] [facility] [address] [id number] [place] [address]- 7458 Nov, 2014 [facility] [place] [facility] [address] [id number] [place] [address]- 9009 Nov, [facility] [place] [facility] [address] [id number] [place] [address]- 1564 Nov, [facility] [place] [facility] [address] [id number] [place] [address]- 0918 Nov, [facility] [place] [facility] [address] [id number] [place] [address]- 8167 Nov, [facility] [place] [facility] [address] [id number] [place] [address]- 8049 Nov, [facility] [place] [facility] [address] [id number] [place] [address]- 5143 Nov, [facility] [place] [facility] [address] [facility] [id number] [place] [address]- 8653 Oct, 2014 [facility] [place] [facility] [address] [id number] [place] [address]- 3353 Oct, 2014 [facility] [place] [facility] [address] [id number] [place] [address]- 6527 Oct, 2014 [facility] [place] [facility] [address] [id number] [place] [address]- 7589 Oct, 2014 [facility] [place] [facility] [address] [id number] [place] [address]- 9030 Oct, 2014 [facility] [place] [facility] [address] [id number], [place] [address]- 4880 Oct, [facility] [place] [facility] [address] [id number] [place] [address]- 1364 Oct, [facility] [place] [facility] [address] [id number] [place] [address]- 3846 Oct, [facility] [place] [facility] [address] [id number] [place] [address]- 0323 Oct, [facility] [place] [facility] [address] [id number] [place] [address]- 3909 Sep, [facility] [place] [facility] [address] [id number] [place] [address]- 2549 Sep, [facility] [place] [facility] [address] [id number] [place] [address]- 9197 Sep, [facility] [place] [facility] [address] [id number] [place] [address]- 0998 Sep, [facility] [place] [facility] [address] [id number], [place] [address]- 1981 Sep, [facility] [place] [facility] [address] [id number] [place] [address]- 9962 Sep, [facility] [place] [facility] [address] [id number] [place] [address]- 1364 Sep, [facility] [place] [facility] [address] [id number] [place] [address]- 5530 Sep, [facility] [place] [facility] [address] [id number], [place] [address]- 4515 Sep, [facility] [place] [facility] [address] [id number], [place] [address]- 9057 Sep, [facility] [place] [facility] [address] [id number], [place] [address]- 6088 Sep, [facility] [place] [facility] [address] [id number], [place] [address]- 8986 Sep, [facility] [place] [facility] [address] [id number] [place] [address]- 2031 Sep, [facility] [address] [id number] [place] [address]- 5918 Sep, [facility] [address] [id number] [place] [address]- 8765 Sep, [facility] [address] [id number] [place] [address]- 8819 Sep, [facility] [address] [id number] [place] [address]- 1801 Aug, [facility] [address] [id number] [place] [address]- 9740 Aug, [facility] [address] [id number] [place] [address]- 7750 Aug, [facility] [address] [id number] [place] [address]- 4362 Aug, [facility] [address] [id number] [place] [address]- 0991 Aug, [facility] [address] [id number] [place] [address]- 6943 Aug, [facility] [address] [id number] [place] [address]- 1367 Aug, [facility] [address] [id number] [place] [address]- 3058 Aug, [facility] [address] [id number] [place] [address]- 6894 Aug, [facility] [address] [id number] [place] [address]- 5344 Aug, [facility] [address] [id number] [place] 1618 Aug, [facility] [address] [place] [id number] Aug, [facility] [address] [id number] [place] [address]- 8373 Aug, [facility] [place] [facility] [address] [id number] [place] [address]- 4747 Aug, [facility] [place] [facility] [address] [id number] [place] [address]- 4476 Aug, [facility] [place] [facility] [address] [id number] [place] [address]- 6887 Aug, [facility] [place] [facility] [address] [id number] [place] [address]- 7800 Aug, [facility] [place] [facility] [address] [id number] [place] [address]- 0872 Aug, [facility] [place] [facility] [address] [id number] [place] [address]- 1826 Aug, [facility] [place] [facility] [address] [id number] [place] [address]- 4757 Aug, [facility] [place] [facility] [address] [id number] [place] [address]- 0757 Aug, [facility] [place] [facility] [address] [id number] [place] [address]- 3131 Aug, [facility] [place] [facility] [address] [id number] [place] [address]- 3167 Aug, [facility] [place] [facility] [address] [id number] [place] [address]- 3375 Aug, [facility] [place] [facility] [address] [id number] [place] [address]- 9400 Aug, [facility] [place] [facility] [address] [id number] [place] [address]- 9740 Aug, [facility] [place] [facility] [address] [id number] [place] [address]- 7108 Aug, [facility] [place] [facility] [address] [id number], [place] [address]- 5068 Aug, [facility] [place] [facility] [address] [id number] [place] [address]- 5564 Aug, [facility] [place] [facility] [address] [id number] [place] 8914 Aug, [facility] [place] [facility] [address] [id number] [place] [address]- 2207 Jul, [facility] [place] [facility] [address] [id number] [place] [address]- 8331 Jul, [facility] [place] [facility] [address] [id number] [place] [address]- 2972 Jul, [facility] [place] [facility] [address] [id number] [place] [address]- 4681 Jul, [facility] [place] [facility] [address] [id number] [place] [address]- 3247 Jul, [facility] [place] [facility] [address] [id number] [place] [address]- 2297 Jul, [facility] [place] [facility] [address] [id number] [place] [address]- 0362 Jul, [facility] [place] [facility] [address] [id number] [place] [address]- 3034 Jul, [facility] [place] [facility] [address] [id number], [place] [address]- 0956 Jul, [facility] [place] [facility] [address] [id number], [place] [address]- 9744 Jul, [facility] [place] [facility] [address] [id number] [place] [address]- 3411 Jun, [facility] [place] [facility] [address] [id number] [place] [address]- 8330 Jun, [facility] [place] [facility] [address] [id number] [place] [address]- 8498 Jun, [facility] [place] [facility] [address] [id number] [place] [address]- 3241 16 Jun, 2014 [facility] [place] [facility] [address] [id number] [place] [address]- 9234 15 Jun, 2014 [facility] [place] [facility] [address] [id number] [place] [address]- 1906 15 Jun, 2014 [facility] [place] [facility] [address] [id number] [place] [address]- 2757 05 Jun, 2014 [facility] [place] [facility] [address] [id number] [place] [address]- 3414 05 Jun, 2014 [facility] [place] [facility] [address] [id number] [place] [address]- 2190 Jun, [facility] [place] [facility] [address] [id number] [place] [address]- 4971 Jun, [facility] [place] [facility] [address] [id number] [place] [address]- 9359 29 May, 2013 [facility] [place] [facility] [address] [id number] [place] [address]- 2547 29 Sep, 2013 [facility] [place] [facility] [address] [id number] [place] [address]- 4434 26 Sep, 2013 [facility] [place] [facility] [address] [id number] [place] [address]- 0021 26 Sep, 2013 [facility] [place] [facility] [address] [id number] [place] [address]- 254 17 Sep, 2013 [facility] [place] [facility] [address] [id number] [place] [address]- 254 17 Sep, 2013 [facility] [place] [facility] [address] [id number] [place] [address]- 2546 15 Sep, 2013 [facility] [place] [facility] [address] [id number] [place] [address]- 2546 15 Sep, 2013 [facility] [place] [facility] [address] [id number] [place] [address]- 2548 15 May, 2013 [facility] [place] [facility] [address] [id number] [place] [address]- 8321 15 May, 2013 [facility] [place] [facility] [address] [id number] [place] [address]- 4005 10 May, 2013 [facility] [place] [facility] [address] [id number] [place] [address]- 4005 10 May, 2013 [facility] [place] [facility] [address] [id number] [place] [address]- 7755 09 May, 2013 [facility] [place] [facility] [address] [id number] [place] [address]- 5669 May, 2013 [facility] [place] [facility] [address] [id number] [place] [address]- 2590 May, 2013 [facility] [place] [facility] [address] [id number] [place] [address]- 8189 May, 2013 [facility] [place] [facility] [address] [id number] [place] [address]- 5053 Apr, [facility] [place] [facility] [address] [id number] [place] [address]- 4354 Apr, [facility] [place] [facility] [address] [id number] [place] [address]- 0515 Apr, [facility] [place] [facility] [address] [id number] [place] [address]- 3762 Apr, [facility] [place] [facility] [address] [id number] [place] [address]- 0610 Apr, [facility] [place] [facility] [address] [id number] [place] [address]- 5593 Apr, [facility] [place] [facility] [address] [id number] [place] [address]- 7577 Apr, [facility] [place] [facility] [address] [id number] [place] [address]- 3764 Apr, [facility] [place] [facility] [address] [id number] [place] [address]- 1022 Apr, [facility] [place] [facility] [address] [id number] [place] [address]- 2912 Apr, [facility] [place] [facility] [address] [id number] [place] [address]- 5770 Apr, [facility] [place] [facility] [address] [id number] [place] [address]- 8269 Apr, [facility] [place] [facility] [address] [id number] [place] [address]- 3253 Apr, [facility] [place] [facility] [address] [id number] [place] [address]- 6686 Apr, [facility] [place] [facility] [address] [id number] [place] [address]- 1220 Apr, [facility] [place] [facility] [address] [id number] [place] [address]- 6137 Mar, [facility] [place] [facility] [address] [id number] [place] [address]- 3883 Mar, [facility] [place] [facility] [address] [id number] [place] [address]- 9724 Mar, [facility] [place] [facility] [address] [id number] [place] [address]- 3216 Mar, [facility] [place] [facility] [address] [id number] [place] [address]- 5135 Mar, [facility] [place] [facility] [address] [id number] [place] [address]- 1749 Mar, [facility] [place] [facility] [address] [id number] [place] [address]- 3886 Mar, [facility] [place] [facility] [address] [id number] [place] [address]- 2387 Mar, [facility] [place] [facility] [address] [id number] [place] [address]- 1542 Mar, [facility] [place] [facility] [address] [id number] [place] [address]- 2175 Mar, 2013 [facility] [place] [facility] [address] [id number] [place] [address]- 2653 Mar, 2013 [facility] [place] [facility] [address] [id number] [place] [address]- 6220 Mar, 2013 [facility] [place] [facility] [address] [id number] [place] [address]- 2949 Mar, 2013 [facility] [place] [facility] [address] [id number] [place] [address]- 2230 Mar, 2013 [facility] [place] [facility] [address] [id number] [place] [address]- 8512 Mar, 2013 [facility] [place] [facility] [address] [id number] [place] [address]- 5109 Mar, 2013 [facility] [place] [facility] [address] [id number] [place] [address]- 0805 Mar, [facility] [place] [facility] [address] [id number] [place] [address]- 3268 Mar, [facility] [place] [facility] [address] [id number] [place] [address]- 4347 Feb, [facility] [place] [facility] [address] [id number] [place] [address]- 8597 Feb, [facility] [place] [facility] [address] [id number] [place] [address]- 1969 Feb, [facility] [place] [facility] [address] [id number] [place] [address]- 9758 Feb, [facility] [place] [facility] [address] [id number] [place] [address]- 6170 Feb, [facility] [place] [facility] [address] [id number] [place] [address]- 0951 Feb, [facility] [place] [facility] [address] [id number] [place] [address]- 2069 Feb, [facility] [place] [facility] [address] [id number] [place] [address]- 4365 Feb, [facility] [place] [facility] [address] [id number] [place] [address]- 2567 Feb, [facility] [place] [facility] [address] [id number] [place] [address]- 3747 Feb, [facility] [place] [facility] [address] [id number] [place] [address]- 1727 Feb, [facility] [place] [facility] [address] [id number] [place] [address]- 5284 Feb, [facility] [place] [facility] [address] [id number] [place] [address]- 5150 Feb, [facility] [place] [facility] [address] [id number] [place] [address]- 0041 Feb, [facility] [place] [facility] [address] [id number] [place] [address]- 7837 January, [facility] [place] [facility] [address] [id number] [place] [address]- 9792 January, [facility] [place] [facility] [address] [id number] [place] [address]- 9581 January, [facility] [place] [facility] [address] [id number] [place] [address]- 8455 January, [facility] [place] [facility] [address] [id number] [place] [address]- 1892 January, [facility] [place] [facility] [address] [id number] [place] [address]- 1566 January, [facility] [place] [facility] [address] [id number] [place] [address]- 9113 January, [facility] [place] [facility] [address] [id number] [place] [address] January, [facility] [place] [facility] [address] [id number] [place] [address] January, [facility] [address] [id number] [place] [address] January, [facility] [address] [id number] [place] [address] January, [facility] [address] [id number] [place] [address] January, [facility] [address] [id number] [place] [address] January, [facility] [address] [id number] [place] [address] January, [facility] [address] [id number] [place] [address] Dec, [facility] [address] [id number] [place] [address] Dec, [facility] [address] [id number] [place] [address] Dec, [facility] [address] [id number] [place] [address] Dec, [facility] [address] [id number] [place] [address] Dec, [facility] [address] [id number] [place] [address] Dec, [facility] [address] [id number] [place] [address] Dec, [facility] [place] [facility] [address] [id number] [place] [address] Dec, [facility] [place] [facility] [address] [id number] [place] [address] Dec, [facility] [address] [id number] [place] [address] Dec, [facility] [place] [facility] [address] [id number] [place] [address] Nov, [facility] [place] [facility] [address] [id number] [place] [address] Nov, [facility] [place] [facility] [address] [id number] [place] [address] Nov, [facility] [place] [facility] [address] [id number] [place] [address] Nov, [facility] [place] [facility] [address] [id number] [place] [address] Nov, [facility] [place] [facility] [address] [id number] [place] [address] Nov, [facility] [place] [facility] [address] [id number] [place] [address] Nov, [facility] [place] [facility] [address] [id number] [place] [address] Nov, [facility] [place] [facility] [address] [id number] [place] [address] Nov, [facility] [place] [facility] [address] [id number] [place] [address] Nov, [facility] [place] [facility] [address] [id number] [place] [address] Oct, [facility] [place] [facility] [address] [id number] [place] [address] Oct, [facility] [place] [facility] [address] [id number] [place] [address] Oct, [facility] [place] [facility] [address] [id number] [place] [address] Oct, [facility] [place] [facility] [address] [id number] [place] [address] Oct, [facility] [place] [facility] [address] [id number] [place] [address] Oct, [facility] [place] [facility] [address] [id number] [place] [address] Oct, [facility] [place] [facility] [address] [id number] [place] [address] Oct, [facility] [place] [facility] [address] [id number] [place] [address] Oct, [facility] [place] [facility] [address] [id number] [place] [address] Oct, [facility] [place] [facility] [address] [id number] [place] [address] Oct, [facility] [place] [facility] [address] [id number] [place] [address] Oct, [facility] [place] [facility] [address] [id number] [place] [address] Oct, [facility] [place] [facility] [address] [id number] [place] [address] Oct, [facility] [place] [facility] [address] [id number] [place] [address] Sep, [facility] [place] [facility] [address] [id number] [place] [address] Sep, [facility] [place] [facility] [address] [id number] [place] [address]47 Sep, [facility] [place] [facility] [address] [id number] [place] [address] 47[address] Sep, [facility] [place] [facility] [address] [id number] [place] [address] Sep, [facility] [place] [facility] [address] [id number] [place] [address] Sep, [facility] [place] [facility] [address] [id number] [place] [address] 14 Sep, 2013 [facility] [place] [facility] [address] [id number] [place] [address] 14 Sep, 2013 [facility] [place] [facility] [address] [id number] [place] [address] 08 Sep, 2013 [facility] [place] [facility] [address] [id number] [place] [address] Sep, [facility] [place] [facility] [address] [id number] [place] [address] Aug, [facility] [place] [facility] [address] [id number] [place] [address]344 Aug, [facility] [place] [facility] [address] [id number] [place] [address] Jul, [facility] [place] [facility] [address] [id number] [place] [address] Jul, [facility] [place] [facility] [address] [id number], [place] [address] Jul, [facility] [place] [facility] [address] [id number] [place] [address] Jul, [facility] [place] [facility] [address] [id number] [place] [address] Jul, [facility] [place] [facility] [address] [id number], [place] [address] Jul, [facility] [place] [facility] [address] [id number], [place] [address] Jul, [facility] [place] [facility] [address] [id number] [place] [address] Jul, [facility] [place] [facility] [address] [id number], [place] [address] Jul, [facility] [place] [facility] [address] [id number], [place] [address] Jul, [facility] [place] [facility] [address] [id number] [place] [address] 07 Jul, 2012 [facility] [place] [facility] [address] [id number] [place] [address] 8986 Jul, 2012 [facility] [place] [facility] [address] [id number] [place] [address] 3390 Jul, 2012 [facility] [place] [facility] [address] [id number] [place] [address] 2200 Jul, 2012 [facility] [place] [facility] [address] [id number] [place] [address]- 5563 Jul, 2012 [facility] [place] [facility] [address] [id number] [place] [address] 3877 Jul, 2012 [facility] [place] [facility] [address] [id number] [place] [address] 2004 Jul, 2012 [facility] [place] [facility] [address] [facility] [id number] [place] [address] 8826 Jul, 2012 [facility] [place] [facility] [address] [id number] [place] [address] 3954 Jul, [facility] [place] [facility] [address] [id number] [place] [address]- 8426 Jun, 2012 [facility] [place] [facility] [address] [facility] [id number], [place] [address]- 4520 16 Jun, 2012 [facility] [place] [facility] [address] [id number] [place] [address]- 8502 16 Jun, 2012 [facility] [place] [facility] [address] [id number], [place] [address] 4860 16 Jun, 2012 [facility] [place] [facility] [address] [id number] [place] [address] 16 Jun, 2012 [facility] [place] [facility] [address] [facility] [id number], [place] [address]- 5383 16 Jun, 2012 [facility] [place] [facility] [address] [id number] [address]703 10 Jun, 2013 [facility] [place] [facility] [address] [id number] [place] [address]- 7141 Jun, [facility] [place] [facility] [address] [id number] [place] [address]- 8257 Jun, [facility] [place] [facility] [address] [id number] [place] [address]- 5915 Jun, [facility] [place] [facility] [address] [id number] [place] [address]- 9535 Jun, [facility] [place] [facility] [address] [id number] [place] [address]- 9088 26 May, 2013 [facility] [place] [facility] [address] [id number] [place] [address]- 2446 25 May, 2013 [facility] [place] [facility] [address] [id number] [place] [address]- 4994 May, [facility] [place] [facility] [address] [id number] [place] [address]- 0559 17 May, 2013 [facility] [place] [facility] [address] [id number] [place] [address]- 3789 May, [facility] [place] [facility] [address] [id number] [place] [address]- 1485 May, [facility] [place] [facility] [address] [id number] [place] [address]- 4135 May, [facility] [place] [facility] [address] [id number] [place] [address]- 6044 05 May, 2013 [facility] [place] [facility] [address] [id number] [place] [address]- 0647 Apr, [facility] [place] [facility] [address] [id number] [place] [address]- 6782 Apr, [facility] [place] [facility] [address] [id number] [place] [address]- 4845 Apr, [facility] [place] [facility] [address] [id number] [place] [address]- 2546 Apr, [facility] [place] [facility] [address] [id number] [place] [address]- 8578 Apr, [facility] [place] [facility] [address] [id number] [place] [address] 2066 Mar, [facility] [place] [facility] [address] [id number] [place] [address]- 7420 Mar, [facility] [place] [facility] [address] [id number] [place] [address]- 4472 Mar, [facility] [place] [facility] [address] [id number] [place] [address]- 7235 Mar, [facility] [place] [facility] [address] [id number] [place] [address]- 0180 Mar, [facility] [place] [facility] [address] [id number] [place] [address]- 1608 Mar, [facility] [place] [facility] [address] [id number] [place] [address]- 2536 Mar, [facility] [place] [facility] [address] [id number] [place] [address]- 2953 Mar, [facility] [place] [facility] [address] [id number] [place] [address]- 8950 Feb, [facility] [place] [facility] [address] [id number] [place] [address] 9713 Feb, [facility] [place] [facility] [address] [id number] [place] [address]- 2676 January, [facility] [place] [facility] [address] [id number] [place] [address]- 0163 January, [facility] [place] [facility] [address] [id number] [place] [address]- 1752 Dec, [facility] [place] [facility] [address] [id number] [place] [address]- 3850 Dec, [facility] [place] [facility] [address] [id number] [place] [address]- 4516 Nov, [facility] [address] [id number] [place] [address]- 8370 Nov, [facility] [place] [facility] [address] [id number] [place] [address]- 4325 Nov, [facility] [address] [id number] [place] [address]- 1727 Nov, [facility] [place] [facility] [address] [id number] [place] [address]- 7673 Oct, [facility] [place] [facility] [address] [id number] [place] [address]- 1705 Oct, [facility] [place] [facility] [address] [id number] [place] [address]- 0995 Oct, [facility] [place] [facility] [address] [id number] [place] [address]- 9359 26 Oct, 2012 [facility] [address] [id number] [place] [address]- 3810 16 Oct, 2012 [facility] [place] [facility] [address] [id number] [place] [address]- 2116 14 Oct, 2012 [facility] [place] [facility] [address] [id number] [place] [address]- 7023 08 Oct, 2012 [facility] [place] [facility] [address] [id number] [place] [address]- 4613 07 Oct, 2012 [facility] [place] [facility] [address] [id number] [place] [address]- 2012 03 Oct, 2012 [facility] [place] [facility] [address] [id number] [place] [address]- 3329 30 Sep, 2012 [facility] [place] [facility] [address] [id number] [place] [address]- 5045 Sep, [facility] [place] [facility] [address] [id number] [place] [address]- 2522 Sep, [facility] [address] [id number] [place] [address]- 6620 Sep, [facility] [place] [facility] [address] [id number] [place] [address]- 0366 Sep, [facility] [place] [facility] [address] [id number] [place] [address]- 0856 Sep, [facility] [place] [facility] [address] [id number] [place] [address]- 6360 Sep, [facility] [place] [facility] [address] [id number] [place] [address]- 7894 Sep, [facility] [place] [facility] [address] [id number] [place] [address]- 2937 Aug, [facility] [address] [id number] [place] [address]- 3168 Aug, [facility] [place] [facility] [address] [id number] [place] [address]- 6909 Aug, [facility] [place] [facility] [address] [id number] [place] [address]- 1330 Aug, [facility] [place] [facility] [address] [id number] [place] [address]- 2881 Aug, [facility] [place] [facility] [address] [id number] [place] [address]- 1407 Aug, [facility] [place] [facility] [address] [id number] [place] [address]- 4618 Aug, [facility] [place] [facility] [address] [id number] [place] [address]- 6802 Aug, [facility] [place] [facility] [address] [id number] [place] [address]- 4907 Jul, [facility] [place] [facility] [address] [id number] [place] [address]- 8300 Jul, [facility] [place] [facility] [address] [id number] [place] [address]- 9672 Jul, [facility] [place] [facility] [address] [id number] [place] [address]- 3045 Jul, [facility] [place] [facility] [address] [id number] [place] [address]- 0773 Jul, [facility] [place] [facility] [address] [id number] [place] [address]- 7657 Jul, [facility] [place] [facility] [address] [id number] [place] [address]- 0598 Jun, [facility] [place] [facility] [address] [id number] [place] [address]- 2156 Jun, [facility] [place] [facility] [address] [id number] [place] [address]- 4793 Jun, [facility] [place] [facility] [address] [id number] [place] [address]- 9347 Jun, [facility] [place] [facility] [address] [id number] [place] [address]- 1282 Jun, [facility] [place] [facility] [address] [id number] [place] [address]- 7404 Jun, [facility] [place] [facility] [address] [id number] [place] [address]- 8832 Jun, [facility] [place] [facility] [address] [id number] [place] [address]- 3675 10 Jun, 2012 [facility] [place] [facility] [address] [id number] [place] [address]- 2952 10 Jun, 2012 [facility] [place] [facility] [address] [id number] [place] [address] 26 May, 2012 [facility] [place] [facility] [address] [id number] [place] [address]- 5957 24 May, 2012 [facility] [place] [facility] [address] [id number] [place] [address]- 7392 May, [facility] [place] [facility] [address] [id number] [place] [address]- 0474 Apr, [facility] [place] [facility] [address] [id number] [place] [address]- 1287 Apr, [facility] [place] [facility] [address] [id number] [place] [address]- 5755 Apr, [facility] [place] [facility] [address] [id number] [place] [address]- 3115 Apr, [facility] [place] [facility] [address] [id number] [place] [address]- 0493 Apr, [facility] [place] [facility] [address] [id number] [place] [address]- 3410 Apr, [facility] [place] [facility] [address] [id number] [place] [address]- 5872 Mar, [facility] [place] [facility] [address] [id number] [place] [address]- 5195 Mar, [facility] [place] [facility] [address] [id number] [place] [address]- 4190 Mar, [facility] [place] [facility] [address] [id number] [place] [address]- 5992 Mar, [facility] [place] [facility] [address] [id number] [place] [address]- 2007 Feb, [facility] [place] [facility] [address] [id number] [place] [address]- 9924 Feb, [facility] [place] [facility] [address] [id number] [place] [address]- 7935 Feb, [facility] [place] [facility] [address] [id number] [place] [address]- 9013 Feb, [facility] [place] [facility] [address] [id number] [place] [address]- 4640 Feb, [facility] [place] [facility] [address] [id number] [place] [address]- 5112 January, [facility] [address] [id number] [place] [address]- 1642 January, [facility] [place] [facility] [address] [id number] [place] [address]- 1403 January, [facility] [address] [id number] [place] [address]- 2757 January, [facility] [place] [facility] [address] [id number] [place] [address]- 8701 January, [facility] [address] [id number] [place] [address]- 9837 January, [facility] [address] [id number] [place] [address]- 2737 Dec, [facility] [address] [id number] [place] [address]- 3012 Dec, [facility] [place] [facility] [address] [id number] [place] [address]- 2076 Dec, [facility] [place] [facility] [address] [id number] [place] [address]- 2849 Dec, [facility] [place] [facility] [address] [id number] [place] [address]- 9719 Dec, [facility] [place] [facility] [address] [id number] [place] [address]- 5264 Nov, [facility] [place] [facility] [address] [id number] [place] [address]- 1246 Nov, [facility] [place] [facility] [address] [id number] [place] [address]- 3289 Nov, [facility] [place] [facility] [address] [id number] [place] [address]- 4786 Nov, [facility] [place] [facility] [address] [id number] [place] [address]- 3664 Oct, [facility] [place] [facility] [address] [id number] [place] [address]- 9280 28 Oct, 2011 [facility] [place] [facility] [address] [id number] [place] [address]- 1646 24 Oct, 2011 [facility] [place] [facility] [address] [id number] [place] [address]- 0756 13 Oct, 2011 [facility] [place] [facility] [address] [id number] [place] [address]- 6046 Oct, [facility] [place] [facility] [address] [id number] [place] [address]- 4647 Sep, [facility] [place] [facility] [address] [id number] [place] [address]- 2539 Sep, [facility] [place] [facility] [address] [id number] [place] [address]- 2554 Sep, [facility] [place] [facility] [address] [id number] [place] [address]- 1266 Sep, [facility] [place] [facility] [address] [id number] [place] [address]- 1656 Sep, [facility] [place] [facility] [address] [id number] [place] [address]- 1596 Sep, [facility] [place] [facility] [address] [id number] [place] [address]- 2603 Aug, [facility] [place] [facility] [address] [id number] [place] [address]- 1169 Aug, [facility] [place] [facility] [address] [id number] [place] [address]- 7476 Aug, [facility] [place] [facility] [address] [id number] [place] [address]- 0196 Jul, [facility] [place] [facility] [address] [id number] [place] [address]- 2600 Jul, [facility] [place] [facility] [address] [id number], [place] [address]- 1141 Jul, [facility] [place] [facility] [address] [id number] [place] [address]- 9312 Jul, [facility] [place] [facility] [address] [id number] [place] [address]- 6270 Jun, [facility] [place] [facility] [address] [id number] [place] 3592 Jun, [facility] [place] [facility] [address] [id number] [place] [address]- 1811 Jun, [facility] [place] [facility] [address] [id number] [place] [address]- 2902 Jun, [facility] [place] [facility] [address] [id number] [place] [address]- 6247 Jun, [facility] [place] [facility] [address] [id number] [place] [address]- 9088 Jun, [facility] [place] [facility] [address] [id number] [place] [address]- 3094 Mar, [facility] [place] [facility] [address] [id number] [place] [address]- 0991 Dec, [facility] [place] [facility] [address] [id number] [place] [address]- 6054 Dec, [facility] [place] [facility] [address] [id number] [place] [address]- 2654 Nov, [facility] [place] [facility] [address] [id number] [place] [address]- 5008 16 Nov, 2010 [facility] [place] [facility] [address] [id number] [place] [address]- 5705 Sep, [facility] [place] [facility] [address] [id number] [place] [address]- 2241 Aug, [facility] [place] [facility] [address] [id number] [place] 5686 29 Aug, 2010 [facility] [place] [facility] [address] [id number] [place] [address]- 2386 29 Aug, 2010 [facility] [address] [id number] [place] [address]- 6256 29 Aug, 2010 [facility] [place] [facility] [address] [id number] [place] [address] 2546 27 Aug, 2010 [facility] [address] [id number] [place] [address] 2546 14 Aug, 2010 [facility] [place] [facility] [address] [id number] [place] [address] 2546 08 Aug, 2010 [facility] [address] [id number] [place] [address]- 4566 08 Aug, 2010 [facility] [address] [id number] [place] [address] 2546 07 Aug, 2010 [facility] [address] [id number] [place] [address] 2546 Aug, [facility] [address] [id number] [place] [address]- 3940 06 Aug, 2010 [facility] [address] [id number] [place] [address] 2546 Aug, [facility] [address] [facility] [id number] [place] [address]- 8804 Jul, [facility] [place] [facility] [address] [id number] [place] [address] 2546 30 Jul, 2010 [facility] [place] [facility] [address] [id number] [place] [address] 2546 30 Jul, 2010 [facility] [place] [facility] [address] [id number] [place] [address] 2546 17 Jul, 2010 [facility] [place] [facility] [address] [id number] [place] [address]- 2546 08 Jul, 2010 [facility] [place] [facility] [address] [id number] [place] [address]- 5161 Jul, [facility] [place] [facility] [address] [id number] [place] [address]- 5866 24 Jun, 2010 [facility] [place] [facility] [address] [id number] [place] [address]- 5408 Jun, [facility] [place] [facility] [address] [id number] [place] [address]- 9420 Jun, [facility] [place] [facility] [address] [id number] [place] [address]- 2893 13 Jun, 2010 [facility] [place] [facility] [address] [id number] [place] [address]- 7392 16 Apr, 2010 [facility] [place] [facility] [address] [id number] [place] [address]- 9930 Mar, [facility] [place] [facility] [address] [id number] [place] [address]- 9465 Feb, [facility] [place] [facility] [address] [id number], [place] [address]- 6921 January, [facility] [place] [facility] [address] [id number] [place] [address]- 0961 15 Dec, 2009 [facility] [place] [facility] [address] [id number], [place] [address]- 1103 Nov, [facility] [place] [facility] [address] [id number], [place] [address]- 7715 Aug, [facility] [place] [facility] [address] [id number], [place] [address]- 5494 Aug, [facility] [place] [facility] [address] [id number] [place] [address]- 9973 Aug, [facility] [place] [facility] [address] [id number], [place] [address]- 8529 Jul, [facility] [place] [facility] [address] [id number] [place] [address]- 3575 Jul, [facility] [place] [facility] [id number], [place] [address]- 5174 Jul, [facility] [id number], [place] [address]- 5752 Jun, [facility] [id number], [place] [address]- 1288 Jun, [facility] [id number], [place] [address]- 5868 Jun, [facility] [id number], [place] [address]- 6760 Jun, [facility] [id number] [place] [address]- 3654 Jun, [facility] [id number], [place] [address] Jun, [facility] [id number] [place] [address] Apr, [facility] [id number] [place] [address] Apr, [facility] [id number] [place] [address] Feb, [facility] [id number], [place] [address] January, [facility] [id number], [place] [address] Dec, IMMUNIZATIONS No Known Immunizations SOCIAL HISTORY Never Assessed REASON FOR VISIT Controlled Med Refill PLAN OF CARE VITAL SIGNS MEDICATIONS Medication Instructions Dosage Frequency Start Date End Date Duration Status Percocet 10-325 MG Orally 4 times a day 1 tablet as needed Mar, 28 days Active RESULTS No Results PROCEDURES [...] obesity Medical History skin cancer-basal cell [facility] (removed) Medical History Arthritis Medical History degenerative [...] (Left) 2000 Surgical History EGD ([facility]) 2009 Surgical History colonoscopy 2009 ([facility]), 2013 ([place] Surgical History heart 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 04/2014 Surgical History carotid US 05/2014 Surgical History resection of skin cancer from Right [facility] Surgical History Biopsy of Lung Bilateral/Left lung lymph node 09/2016 Surgical History Bone Marrow Biopsy Surgical History port in the right chest wall 12/2016 Hospitalization History [facility] low potassium, low magnesium, chest painina 01/2015 Hospitalization History inability to urinate 09/16/[address] [facility] mental health early Hospitalization History hyperkalemia 10/2017 Hospitalization History fluid in lung
--- OUTSIDE RECORDS SUMMARY | 2018-08-08 13:02 | XMS REPORT ---
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 Name Role Phone NOEMI WASHBURN Unavailable PROBLEMS Type Condition ICD9-CM Code KVL05-OR Code Onset Dates Condition Status SNOMED Code Problem Chronic lymphocytic leukemia C91.10 Active 20206949 Problem Insomnia, unspecified type G47.00 Active 022162724 Problem Lymphocytosis D72.820 Active 08011865 Problem Anxiety F41.9 Active 21503609 Problem Eye exam abnormal R93.8 Active 804536868 Problem Morbid obesity E66.01 Active 629950388 Problem Diabetic polyneuropathy associated with type 2 diabetes mellitus E11.42 Active 75493670 Problem Essential hypertension I10 Active 58606067 Problem Falling R29.6 Active 403653166 Problem 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 Active 303502517 Problem Cough R05 Active 72603710 Problem Dysuria R30.0 Active 58308400 Problem Eustachian tube dysfunction, unspecified laterality H69.80 Active 60795060 Problem Bilateral primary osteoarthritis of knee M17.0 Active 070177924 Problem Polyneuropathy associated with underlying disease G63 Active 235312147 Problem Anemia of chronic illness D63.8 Active 117063351 Problem Retinal edema H35.81 Active 8875227 Problem DM neuro manif type II E11.49 Active 07040487 Problem Diabetes E11.9 Active 20221753 Problem Hypokalemia E87.6 Active 25162912 Problem Benign prostatic hyperplasia with lower urinary tract symptoms, unspecified morphology N40.1 Active 168919813 Problem Reactive airway disease J45.909 Active 633578275859 Problem Bipolar I disorder, most recent episode (or current) mixed, moderate F31.62 Active 66964140 Problem Chronic pain G89.29 Active 91008208 Problem Leukocytosis D72.829 Active 205252594 ALLERGIES No Information ENCOUNTERS Encounter Location Date Diagnosis [facility] [place] [address] [address] Apr, [facility] [place] [address] [address] Mar, [facility] [place] [address] [address] Mar, [facility] [place] [address] [address] 4[address] Mar, [facility] [place] [address] [address] 08[address] Mar, [facility] [place] [address] [address] Feb, Bipolar I disorder, most recent episode (or current) mixed, moderate F31.62 [facility] [place] [address] [address] Feb, Chronic pain G89.29 [facility] [place] [address] [address] Feb, Decubitus ulcer of right foot, stage 3 L89.893 and BMI 50.0- 59.9, adult Z68.43 [facility] [place] [address] [address] Feb, Bipolar I disorder, most recent episode (or current) mixed, moderate F31.62 [facility] [place] [address] [address] 0[address] Feb, [facility] [place] [id number] [address] January, [facility] [place] [address], [place] [address] January, Chronic pain G89.29 [facility] [place] [id number] [address]99 January, Bipolar I disorder, most recent episode (or current) mixed, moderate F31.62 [place] [address] [place] [address] 13727- 9881 January, Bipolar I disorder, most recent episode (or current) mixed, moderate F31.62 [facility] [place] [id number] [place] [address] 97889- 1673 Dec, Bipolar I disorder, most recent episode (or current) mixed, moderate F31.62 and BMI 50.0-59.9, adult Z68.43 [facility] [id number] [place] [address] 24979- 6267 Dec, Bipolar I disorder, most recent episode (or current) mixed, moderate F31.62 [facility] [id number] [place] [address] 32924- 1742 Dec, Chronic pain G89.29 [place] [address] 30116- 1088 Dec, DM neuro manif type II E11.49 ; Right flank pain R10.9 ; senior care 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 Z79.891 ; Encounter for medication monitoring Z51.81 and BMI 50.0-59.9, adult Z68.43 [facility] [id number] [place] [address] 36741- 0981 Dec, Bipolar I disorder, most recent episode (or current) mixed, moderate F31.62 [facility] [id number] [place] [address] 55846- 4691 Nov, Bipolar I disorder, most recent episode (or current) mixed, moderate F31.62 [facility] [id number] [place] [address] 38745- 7828 Nov, Chronic pain G89.29 [facility] [id number] [place] [address] 46311- 9985 Nov, Bipolar I disorder, most recent episode (or current) mixed, moderate F31.62 [facility] [id number] [place] [address] 67520- 9525 Nov, Hypokalemia E87.6 [facility] [address] 590308- 3769 Nov, Bipolar I disorder, most recent episode (or current) mixed, moderate F31.62 [place] [address] 30244- 2509 Oct, Chronic pain G89.29 [place] [address] 212387- 9857 Oct, BMI 50.0-59.9, adult Z68.43 and Bipolar I disorder, most recent episode (or current) mixed, moderate F31.62 [facility] [id number] [place] [address] 45905- 8051 Oct, Bipolar I disorder, most recent episode (or current) mixed, moderate F31.62 [place] [address] 45010- 0782 Oct, [place] [address] 87741- 7761 Oct, Hypokalemia E87.6 [facility] [id number] [place] [address] 00456- 3646 Oct, DM neuro manif type II E11.49 [place] [address] 28077- 8590 Oct, Bipolar I disorder, most recent episode (or current) mixed, moderate F31.62 [place] [address] 26341- 4024 Oct, Bipolar I disorder, most recent episode (or current) mixed, moderate F31.62 [facility] [address] 09556- 5814 14 Oct, 2017 Hyperkalemia E87.5 ; Falling R29.6 ; BMI 50.0-59.9, adult Z68.43 and Acute left ankle pain M25.572 [facility] [id number] [place] [address] 78878- 9357 08 Oct, 2017 DM neuro manif type II E11.49 [facility] [id number] [place] [address] 10336- 6210 Oct, [place] [address] 82469- 5057 Sep, Chronic pain G89.29 [facility] [id number] [place] [address] 67080- 7228 Sep, [place] [address] 17457- 1177 Sep, Bilateral primary osteoarthritis of knee M17.[address] [address]- 2555 Sep, Generalized edema R60.1 [facility] [id number] [place] [address] 64414- 3328 Sep, Bipolar I disorder, most recent episode (or current) mixed, moderate F31.62 [facility] [id number] [place] [address] 99900- 7569 15 Sep, 2017 Hypoxia R09.02 ; Other hypervolemia E87.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 ; Anemia of chronic illness D63.8 and BMI 50.0- 59.9, adult Z68.43 [facility] [id number] [place] [address] 37247- 6530 Sep, [facility] [id number] [place] [address] 88794- 1755 Sep, Bipolar I disorder, most recent episode (or current) mixed, moderate F31.62 [place] [address] 94082- 2122 Aug, Chronic pain G89.29 [facility] [place] [id number] [place] [address] 15105- 9573 Aug, Generalized edema R60.1 [facility] [place] [id number] [place] [address] 04268- 6536 Aug, [facility] [place] [id number] [place] [address] 269697- 8645 Aug, [facility] [place] [id number] [place] [address] 86672- 7004 14 Aug, 2017 Bipolar I disorder, most recent episode (or current) mixed, moderate F31.62 [facility] [id number] [place] [address] 65051- 5473 Aug, Bipolar I disorder, most recent episode (or current) mixed, moderate F31.62 [facility] [place] [id number] [place] [address] 55083- 6517 Aug, Chronic pain G89.29 [facility] [place] [address] [place] [address] 09054- 4426 30 Jul, 2017 Bipolar I disorder, most recent episode (or current) mixed, moderate F31.62 [facility] [place] [id number] [place] [address] 39508- 4444 Jul, Bipolar I disorder, most recent episode (or current) mixed, moderate F31.62 and BMI 60.0-69.9, adult Z68.44 [facility] [place] [id number] [place] [address] 51154- 5870 16 Jul, 2017 Bipolar I disorder, most recent episode (or current) mixed, moderate F31.62 [facility] [place] [id number] [place] [address] 16531- 9426 06 Jul, 2017 Chronic pain G89.29 [facility] [place] [id number] [place] [address] 49004- 4800 02 Jul, 2017 Bipolar I disorder, most recent episode (or current) mixed, moderate F31.62 [facility] [place] [address] [address]- 2543 18 Jun, 2017 Polyneuropathy associated with underlying disease G63 and Diabetes E11.9 [facility] [place] [address], [place] [address]- 3285 16 Jun, 2017 Bipolar I disorder, most recent episode (or current) mixed, moderate F31.62 [facility] [place] [id number] [place] [address] 16700- 3742 09 Jun, 2017 Chronic pain G89.29 [facility] [place] [id number] [place] [address] 72030- 8078 27 May, 2017 Bipolar I disorder, most recent episode (or current) mixed, moderate F31.62 [facility] [place] [id number] [place] [address] 14362- 2444 21 May, 2017 Bipolar I disorder, most recent episode (or current) mixed, moderate F31.62 [facility] [place] [address], [place] [address]- 9082 20 May, 2017 Diabetic polyneuropathy associated with type 2 diabetes mellitus E11.42 [facility] [place] [address], [place] [address]- 4756 18 May, 2017 Bipolar I disorder, most recent episode (or current) mixed, moderate F31.62 [facility] [place] [address], [place] [address]- 8933 13 May, 2017 Bipolar I disorder, most recent episode (or current) mixed, moderate F31.62 [facility] [place] [address], [place] [address]- 6648 12 May, 2017 Chronic pain G89.29 [facility] [place] [id number] [place] [address] 52498- 4268 Apr, Bipolar I disorder, most recent episode (or current) mixed, moderate F31.62 [facility] [place] [id number] [place] [address] 36798- 3148 Apr, [facility] [place] [id number] [place] [address] 26960- 5240 Apr, Chronic pain G89.29 and DM neuro manif type II E11.49 [facility] [place] [id number] [place] [address] 17553- 8755 Apr, [facility] [place] [id number] [place] [address] 375807- 2101 Apr, Bipolar I disorder, most recent episode (or current) mixed, moderate F31.62 [facility] [place] [id number] [place] [address] 51814- 2020 Apr, Chronic pain G89.29 [facility] [place] [id number] [place] [address] 00575- 0095 Apr, Iliotibial band syndrome, left M76.32 [facility] [place] [id number] [place] [address] 34692- 6852 Apr, Bipolar I disorder, most recent episode (or current) mixed, moderate F31.62 [facility] [place] [id number] [place] [address] 85466- 8827 Mar, Bipolar I disorder, most recent episode (or current) mixed, moderate F31.62 [facility] [place] [address] [place] [address] 70638- 8712 Mar, Bipolar I disorder, most recent episode (or current) mixed, moderate F31.62 [facility] [place] [id number] [place] [address] 14399- 2077 Mar, [facility] [place] [id number] [place] [address] 90740- 1089 Mar, Bipolar I disorder, most recent episode (or current) mixed, moderate F31.62 [facility] [place] [id number] [place] [address] 04785- 4582 Mar, Chronic pain G89.29 [facility] [place] [id number] [address]- 0664 Mar, Bipolar I disorder, most recent episode (or current) mixed, moderate F31.62 [facility] [place] [id number] [place] [address] 98772- 5790 Mar, Bipolar I disorder, most recent episode (or current) mixed, moderate F31.62 [place] [id number] [place] [address] 94235- 7711 Mar, Acute pain of left knee M25.562 ; Left hip pain M25.552 ; Generalized edema R60.1 and Tongue swelling R22.0 [place] [id number] [place] [address] 35423- 7060 Mar, [place] [id number] [place] [address] 70901- 9628 Feb, Chronic pain G89.29 [facility] [facility] [id number] [place] [address] 86850- 7511 Feb, Diabetes E11.9 [facility] [place] [id number] [place] [address] 22079- 8694 January, Chronic pain G89.29 [facility] [place] [id number] [place] [address] 58421- 5858 January, [facility] [place] [id number] [place] [address] 59240- 9708 January, Bipolar I disorder, most recent episode (or current) mixed, moderate F31.62 [facility] [place] [address] [place] [address] 25868- 1724 Dec, Bipolar I disorder, most recent episode (or current) mixed, moderate F31.62 [facility] [place] [address] [place] [address] 33446- 0923 Dec, Chronic pain G89.29 [facility] [place] [id number] [place] [address] 70737- 1998 Dec, Bipolar I disorder, most recent episode (or current) mixed, moderate F31.62 [facility] [place] [address], [place] [address]- 0486 Dec, Diabetes E11.9 ; Essential hypertension I10 ; Chronic pain G89.29 and Morbid obesity E66.01 [facility] [place] [address], [place] [address]- 0157 Dec, [facility] [place] [id number] [place] [address] 128522- 6123 Dec, Bipolar I disorder, most recent episode (or current) mixed, moderate F31.62 [facility] [place] [id number] [place] [address] 05567- 5932 Dec, Bipolar I disorder, most recent episode (or current) mixed, moderate F31.62 [facility] [place] [address], [place] [address]- 6735 Nov, Chronic pain G89.29 [facility] [place] [id number] [place] [address] 71002- 5327 Nov, Bipolar I disorder, most recent episode (or current) mixed, moderate F31.62 [facility] [place] [address], [place] [address]- 8777 Nov, [facility] [place] [address], [place] [address]- 7373 Nov, Bipolar I disorder, most recent episode (or current) mixed, moderate F31.62 [facility] [place] [address], [place] [address]- 1105 Nov, Bipolar I disorder, most recent episode (or current) mixed, moderate F31.62 [facility] [place] [id number] [place] [address] 61288- 6488 Nov, [facility] [place] [address], [place] [address]- 0189 Nov, [facility] [place] [address], [place] [address]- 7471 Nov, [facility] [place] [id number] [place] [address] 06604- 8390 Oct, Chronic pain G89.29 [facility] [place] [address] [place] [address] 00149- 8320 Oct, Bipolar I disorder, most recent episode (or current) mixed, moderate F31.62 [facility] [place] [id number] [place] [address] 31911- 3864 Oct, [facility] [place] [id number] [place] [address] 59211- 2991 Oct, Chronic pain G89.29 ; Diabetes E11.9 ; Anxiety F41.9 and 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 [facility] [place] [id number] [place] [address] 53504- 3232 Oct, [facility] [place] [id number] [place] [address] 61291- 2688 Oct, Diabetes E11.9 [facility] [place] [id number] [place] [address] 98559- 4443 Oct, Bipolar I disorder, most recent episode (or current) mixed, moderate F31.62 [facility] [place] [address] [place] [address] 02314- 6674 Sep, Chronic pain G89.29 [facility] [place] [address] [place] [address] 99024- 3868 Sep, Chronic pain G89.29 [facility] [place] [id number] [place] [address] 53203- 1359 Aug, Chronic pain G89.29 [facility] [place] [id number] [place] [address] 15238- 3165 Jul, [facility] [place] [id number] [place] [address] 49411- 8927 Jul, Diabetes E11.9 [facility] [place] [id number] [place] [address] 67623- 5891 Jul, Chronic pain G89.29 [facility] [place] [id number] [place]- 0816 Jul, Bipolar I disorder, most recent episode (or current) mixed, moderate F31.62 [place] [address] 13254- 7375 Jun, Bipolar I disorder, most recent episode (or current) mixed, moderate F31.62 [place] [address] 192261- 9691 Jun, [place] [address] 98708- 3359 Jun, Bipolar I disorder, most recent episode (or current) mixed, moderate F31.62 [facility] [facility] [id number] [place] [address] 03152- 4880 30 May, 2016 Insomnia, unspecified type G47.00 [place] [address] 771633- 1792 May, Bipolar I disorder, most recent episode (or current) mixed, moderate F31.62 [facility] [facility] [id number] [place] [address] 04431- 3261 14 May, 2016 [place] [address] 972549- 2114 08 May, 2016 Bipolar I disorder, most recent episode (or current) mixed, moderate F31.62 [place] [address] 63195- 1024 06 May, 2016 Diabetes E11.9 and Essential hypertension I10 [place] [id number] [place] [address] 40156- 2547 Apr, Chronic pain G89.29 [facility] [address] [place] [address]- 1624 Apr, Bipolar I disorder, most recent episode (or current) mixed, moderate F31.62 [facility] [id number] [place] [address] 40157- 6082 Apr, [facility] [place] [id number] [place] [address] 85612- 4939 Apr, [facility] [place] [id number] [place] [address] 33570- 2431 Mar, Chronic pain G89.29 ; Headache, unspecified headache type R51 ; Neuropathy G62.9 ; Pain of right hip joint M25.551 and Essential hypertension I10 [place] [id number] [place] [address] 18211- 0084 Mar, Chronic pain G89.29 [facility] [place] [id number] [place] [address] 17297- 6774 Mar, Bipolar I disorder, most recent episode (or current) mixed, moderate F31.62 [place] [id number] [place] [address] 09901- 4669 Feb, Bipolar I disorder, most recent episode (or current) mixed, moderate F31.62 and Insomnia, unspecified type G47.00 [id number] [place] [address] 64054- 1257 Feb, Chronic pain G89.29 [place] [id number] [place] [address] 83325- 0337 Feb, Bipolar I disorder, most recent episode (or current) mixed, moderate F31.62 [place] [address] [id number] [place] [address] 02858- 4656 January, Bipolar I disorder, most recent episode (or current) mixed, moderate F31.62 [address] [id number] [place] [address] 15567- 1219 January, Chronic pain G89.29 [place] [id number] [place] [address] 79056- 1048 January, Chronic pain G89.29 and Essential hypertension I10 [facility] [place] [address] [address]- [address] January, Bipolar I disorder, most recent episode (or current) mixed, moderate F31.62 [facility] [place], [facility] [address] [address]- 7932 Dec, [facility] [place] [id number] [place] [address] 40624- 3345 Dec, [facility] [place] [address] 89729- 2289 Dec, [facility] [place] [id number] [place] [address] 32329- 7045 Dec, [facility] [place] [address] 66527- 2089 Nov, Reactive airway disease J45.909 [facility] [place] [id number] [place] [address] 93081- 5304 Nov, [facility] [place] [id number] [place] [address] 47282- 4295 Nov, [facility] [place] [id number] [place] [address] 60072- 2092 Nov, [facility] [place] [id number] [place] [address] 74125- 0079 Nov, [facility] [place] [id number] [place] [address] 29114- 8267 Nov, Onychomycosis B35.1 ; Hammertoe M20.40 ; [place] or callus L84 and DM neuro manif type II E11.49 [facility] [place] [id number] [place] [address] 63509- 5708 15 Nov, 2015 Chronic pain G89.29 ; Leukocytosis D72.829 and Diabetes E11.9 [facility] [place] [id number] [place] [address] 17069- 6921 Nov, [facility] [place] [id number] [place] [address] 46500- 9964 Oct, Bronchitis J40 [facility] [place] [id number] [place] [address] 50751- 1524 Oct, [facility] [place] [address] 28980- 6024 Oct, [facility] [place] [address] 77356- 4322 Oct, Mastoiditis, unspecified laterality H70.90 and Type 2 diabetes mellitus with complication E11.8 [facility] [place] [id number] [place] [address] 25453- 3598 Sep, [facility] [place] [address] 13512- 9908 Sep, Dysuria R30.0 ; Cough R05 ; Benign prostatic hyperplasia with lower urinary tract symptoms, unspecified morphology N40.1 ; Hypokalemia E87.6 and Eustachian tube dysfunction, unspecified laterality H69.80 [facility] [place] [id number] [place] [address] 10084- 2128 Sep, Moderate mixed bipolar I disorder F31.62 [facility] [id number] [place] [address] 64007- 1051 Sep, Hypokalemia E87.6 [facility] [place] [id number] [place] [address] 35279- 9425 Sep, [facility] [place] [id number] [place] [address] 48262- 2210 Sep, Upper respiratory tract infection, unspecified type J06.9 [facility] [place] [id number] [place] [address] 29004- 8809 Aug, [facility] [place] [address] [place] [address]- 2708 Aug, Dysuria R30.0 [facility] [place] [id number] [place] [address] 42166- 5341 Aug, [facility] [place] [address] [address]- 7637 Jul, [facility] [place] [id number] [place] [address] 443639- 7894 Jul, [facility] [place] [id number] [address]- 1003 Jul, [facility] [place] [id number] [place] [address] 301035- 0270 Jul, [facility] [place] [id number] [place] [address] 61577- 2762 Jun, [facility] [place] [id number] [place] [address] 53428- 0484 Jun, [facility] [place] [address] [address]- 7051 Jun, [facility] [place] [address] [address]- 1782 29 May, 2015 [facility] [place] [address] [address]- 3121 May, Bipolar I disorder, most recent episode (or current) mixed, moderate 296.62 [facility] [place] [address] [address]- 2009 16 May, 2015 [facility] [place] [address] [address]- 7886 May, Bipolar I disorder, most recent episode (or current) mixed, moderate 296.62 and Major depressive disorder, recurrent episode, severe, specified as with psychotic behavior 296.34 [facility] [place] [address] [address]- 4541 May, Bipolar I disorder, most recent episode (or current) mixed, moderate 296.62 [facility] [place] [address] [address]- 5709 May, [facility] [place] [id number] [place] [address] 69854- 9910 Apr, [facility] [place] [id number] [place] [address] 28426- 9617 Apr, [facility] [place] [id number] [place] [address] 08670- 6702 Apr, Unspecified disorder of kidney and ureter 593.9 and Diabetes mellitus type 2, uncontrolled 250.02 [facility] [place] [id number] [place] [address] 05389- 8027 Apr, [facility] [place] [id number] [place] [address] 77044- 5685 Apr, [facility] [place] [id number] [place] [address] 66398- 4384 Apr, [facility] [place] [id number] [place] [address] 95437- 3997 Apr, [facility] [place] [id number] [place] [address] 60200- 6020 Apr, Diabetes mellitus type II, uncontrolled 250.02 [facility] [place] [id number] [place] [address] 43370- 0908 Apr, [facility] [place] [id number] [place] [address] 34606- 5150 Mar, [facility] [place] [id number] [place] [address] 72831- 2183 Mar, [facility] [place] [id number] [place] [address] 82086- 8074 Mar, [facility] [place] [id number] [place] [address] 80229- 2256 Mar, Major depressive disorder, recurrent episode, severe, specified as with psychotic behavior 296.34 and Bipolar I disorder, most recent episode (or current) mixed, moderate 296.62 [facility] [place] [id number] [place] [address] 12258- 9172 Mar, Diabetes 250.00 ; Anuria 788.5 ; Nausea and vomiting 787.01 and Diarrhea 787.91 [facility] [place] [id number] [place] [address] 60440- 6754 Mar, Diabetes 250.00 [facility] [place] [id number] [place] [address] 66140- 0325 Mar, [facility] [place] [id number] [place] [address] 18321- 0107 Mar, Diabetes 250.00 [facility] [place] [id number] [place] [address] 45666- 3085 Mar, [facility] [place] [id number] [place] [address] 09210- 2118 Mar, [facility] [place] [id number] [place] [address] 49680- 4201 Mar, [facility] [place] [id number] [place] [address] 77638- 4940 Mar, [facility] [place] [id number] [place] [address] 06753- 2217 Mar, Bipolar I disorder, most recent episode (or current) mixed, moderate 296.62 and Major depressive disorder, recurrent episode, severe, specified as with psychotic behavior 296.34 [facility] [place] [id number] [place] [address] 95312- 5172 Mar, Magnesium deficiency 275.2 ; Hypokalemia 276.8 ; Nausea & vomiting 787.01 and Diabetes mellitus type 2, uncontrolled 250.02 [facility] [place] [address] [address]- 0781 Feb, [facility] [place] [id number] [place] [address] 66936- 0723 Feb, Bipolar I disorder, most recent episode (or current) mixed, moderate 296.62 [facility] [place] [id number] [place] [address] 29911- 8884 Feb, Nausea and vomiting 787.01 ; Left elbow pain 719.42 ; Anuria 788.5 and Diabetes 250.00 [facility] [place] [id number] [place] [address] 67093- 6066 Feb, [facility] [place] [address] 01883- 3260 Feb, Hypopotassemia 276.8 and Hypokalemia 276.8 [place] [address] 07349- 4064 Feb, Hypopotassemia 276.8 and Hypokalemia 276.8 [facility] [id number] [place] [address] 10065- 3947 Feb, Seborrheic keratoses 702.19 [facility] [id number] [place] [address] 35996- 7525 Feb, Hypopotassemia 276.8 and Low magnesium levels 275.2 [facility] [id number] [place] [address] 31187- 2630 January, [facility] [place] [id number] [place] [address] 45358- 0378 January, [facility] [place] [id number] [place] [address] 25935- 4767 January, [facility] [place] [id number] [place] [address] 45058- 8569 January, Scalp lesion 709.9 [facility] [place] [id number] [place] [address] 84168- 4270 January, [facility] [place] [id number] [place] [address] 60384- 6388 Dec, Tear of medial cartilage or meniscus of knee, current 836.0 and 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 [facility] [address] [id number] [place] [address]- 7966 Dec, [facility] [address] [facility] [id number] [place] [address]- 2556 Dec, [facility] [address] [facility] [id number] [place] [address]- 9676 28 Dec, 2014 Squamous cell carcinoma, 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 [facility] [address] [id number] [place] [address] 2546 14 Dec, 2014 [facility] [address] [facility] [id number] [place] [address]- 7406 Dec, [facility] [address] [facility] [id number] [place] [address]- 4116 Nov, [facility] [id number] [place] [address]- 8496 Nov, [facility] [address] [facility] [id number] [place] [address]- 3401 Nov, [facility] [address] [facility] [id number] [place] [address]- 7306 Nov, [facility] [id number] [place] [address]- 9704 Nov, [facility] [address] [id number] [place] [address]- 3856 Nov, [facility] [address] [facility] [id number] [address] 2546 Nov, [facility] [address] [facility] [id number] [place] [address]- 1166 Nov, [facility] [address] [facility] [id number] [place] [address]- 1906 Nov, [facility] [id number] [address]- 6222 Nov, [facility] [place] [facility] [address] [id number] [place] [address]- 0763 Nov, [facility] [place] [facility] [address] [id number] [place] [address]- 9028 Nov, [facility] [place] [facility] [address] [id number] [place] [address]- 1131 Oct, 2014 [facility] [place] [facility] [address] [id number] [place] [address]- 8215 Oct, 2014 [facility] [place] [facility] [address] [id number] [place] [address]- 1257 Oct, 2014 [facility] [place] [facility] [address] [id number] [place] [address]- 7814 Oct, 2014 [facility] [place] [facility] [address] [facility] [id number] [place] [address]- 3347 Oct, 2014 [facility] [place] [facility] [address] [id number] [place] [address]- 1432 Oct, 2014 [facility] [place] [facility] [address] [id number] [place] [address]- 2966 Oct, 2014 [facility] [place] [facility] [address] [facility] [id number] [place] [address]- 3202 Oct, [facility] [place] [facility] [address] [facility] [id number] [place] [address]- 0905 Oct, [facility] [place] [facility] [address] [facility] [id number] [place] [address]- 3913 Sep, [facility] [place] [facility] [address] [id number] [place] [address]- 3968 Sep, [facility] [place] [facility] [address] [facility] [id number] [place] [address]- 4858 Sep, [facility] [place] [facility] [address] [facility] [id number] [place] [address]- 6467 Sep, [facility] [place] [facility] [address] [id number] [place] [address]- 5856 Sep, [facility] [place] [facility] [address] [id number] [place] [address]- 2018 Sep, [facility] [place] [facility] [address] [id number] [place] [address]- 8736 Sep, [facility] [place] [facility] [address] [id number] [place] [address]- 9836 Sep, [facility] [place] [facility] [address] [id number] [place] [address]- 3224 Sep, [facility] [place] [facility] [address] [id number] [place] [address]- 4126 Sep, [facility] [place] [facility] [address] [id number] [place] [address]- 9220 Sep, [facility] [place] [facility] [address] [id number] [place] [address]- 7427 Sep, [facility] [place] [facility] [address] [id number] [place] [address]- 7001 Sep, [facility] [place] [facility] [address] [id number] [place] [address]- 5520 Sep, [facility] [place] [facility] [address] [id number] [place] [address]- 2735 Sep, [facility] [place] [facility] [address] [id number] [place] [address]- 3023 Sep, [facility] [place] [facility] [address] [id number] [place] [address]- 9747 Aug, [facility] [place] [facility] [address] [id number] [place] [address]- 6536 Aug, [facility] [place] [facility] [address] [id number] [place] [address]- 0116 Aug, [facility] [place] [facility] [address] [id number] [place] [address]- 3764 Aug, [facility] [address] [id number] [place] [address]- 1550 Aug, [facility] [address] [id number] [place] [address]- 7506 Aug, [facility] [address] [id number] [place] [address]- 4506 Aug, [facility] [address] [id number] [place] [address]- 6589 Aug, [facility] [address] [id number] [place] [address]- 1004 Aug, [facility] [address] [id number] [place] [address]- 3164 Aug, [facility] [address] [id number] [place] [address]- 2425 Aug, [facility] [address] [place] [id number] Aug, [facility] [address] [id number] [place] [address]- 9796 Aug, [facility] [address] [id number] [place] [address]- 0513 Aug, [facility] [address] [id number] [place] [address]- 3070 Aug, [facility] [place] [facility] [address] [id number] [place] [address]- 3723 Aug, [facility] [place] [facility] [address] [id number] [place] [address]- 1806 Aug, [facility] [place] [facility] [address] [id number] [place] [address]- 6516 Aug, [facility] [address] [id number] [place] [address]- 6971 Aug, [facility] [place] [facility] [address] [id number] [place] [address]- 7825 Aug, [facility] [place] [facility] [address] [id number] [place] [address]- 5242 Aug, [facility] [place] [facility] [address] [id number] [place] [address]- 5706 Aug, [facility] [place] [facility] [address] [id number] [place] 2449 Aug, [facility] [place] [facility] [address] [id number] [place] [address]- 4680 Aug, [facility] [place] [facility] [address] [id number] [place] [address]- 4681 Aug, [facility] [place] [facility] [address] [id number] [place] [address]- 1181 Aug, [facility] [place] [facility] [address] [id number] [place] [address]- 9262 Aug, [facility] [place] [facility] [address] [id number] [place] [address]- 7638 Aug, [facility] [place] [facility] [address] [id number] [place] [address]- 5992 Aug, [facility] [place] [facility] [address] [id number] [place] [address]- 8216 Aug, [facility] [place] [facility] [address] [id number] [place] [address]- 9294 Jul, [facility] [place] [facility] [address] [id number] [place] [address]- 1501 Jul, [facility] [place] [facility] [address] [id number] [place] [address]- 3674 Jul, [facility] [place] [facility] [address] [id number] [place] [address]- 4074 Jul, [facility] [place] [facility] [address] [id number] [place] [address]- 6431 Jul, [facility] [place] [facility] [address] [id number] [place] [address]- 2233 Jul, [facility] [place] [facility] [address] [id number] [place] [address]- 0593 Jul, [facility] [place] [facility] [address] [id number] [place] [address] Jul, [facility] [place] [facility] [address] [id number] [place] [address] Jul, [facility] [place] [facility] [address] [id number] [place] [address] Jul, [facility] [place] [facility] [address] [id number] [place] [address] Jun, [facility] [place] [facility] [address] [id number] [place] [address] Jun, [facility] [place] [facility] [address] [id number] [place] [address] Jun, [facility] [place] [facility] [address] [id number] [place] [address] Jun, [facility] [place] [facility] [address] [id number] [place] [address] Jun, [facility] [place] [facility] [address] [facility] [id number] [place] [address] Jun, [facility] [place] [facility] [address] [id number] [place] [address] Jun, [facility] [place] [facility] [address] [id number] [place] [address] Jun, [facility] [place] [facility] [address] [id number] [place] [address] Jun, [facility] [place] [facility] [address] [id number] [place] [address] Jun, [facility] [place] [facility] [address] [id number] [place] [address] May, [facility] [place] [facility] [address] [id number] [place] [address] 29 Sep, 2013 [facility] [place] [facility] [address] [id number] [place] [address] 26 Sep, 2013 [facility] [place] [facility] [address] [id number] [place] [address] 26 Sep, 2013 [facility] [place] [facility] [address] [id number] [place] [address] 17 Sep, 2013 [facility] [place] [facility] [address] [id number] [place] [address] 17 Sep, 2013 [facility] [place] [facility] [address] [id number] [place] [address] 15 Sep, 2013 [facility] [place] [facility] [address] [id number] [place] [address] 15 May, 2013 [facility] [place] [facility] [address] [id number] [place] [address] 15 Sep, 2013 [facility] [place] [facility] [address] [id number] [place] [address] 15 May, 2013 [facility] [place] [facility] [address] [id number] [place] [address] 10 May, 2013 [facility] [place] [facility] [address] [id number] [address] 10 Sep, 2013 [facility] [place] [facility] [address] [id number] [address] 09 Sep, 2013 [facility] [place] [facility] [address] [id number] [place] [address] 09 Sep, 2013 [facility] [place] [facility] [address] [id number] [place] [address] 04 Sep, 2013 [facility] [place] [facility] [address] [id number], [place] [address] 04 Sep, 2013 [facility] [place] [facility] [address] [id number], [place] [address] Apr, [facility] [place] [facility] [address] [id number] [place] [address] Apr, [facility] [place] [facility] [address] [id number] [place] [address]- [address] Apr, [facility] [place] [facility] [address] [id number] [place] [address] Apr, [facility] [place] [facility] [address] [id number] [place] [address] Apr, [facility] [place] [facility] [address] [id number] [place] [address] Apr, [facility] [place] [facility] [address] [id number] [place] [address] Apr, [facility] [place] [facility] [address] [id number] [place] [address] Apr, [facility] [place] [facility] [address] [id number] [place] [address] Apr, [facility] [place] [facility] [address] [id number] [place] [address] Apr, [facility] [place] [facility] [address] [id number] [place] [address] Apr, [facility] [place] [facility] [address] [id number] [place] [address] Apr, [facility] [place] [facility] [address] [id number] [place] [address] Apr, [facility] [place] [facility] [address] [id number] [place] [address] Apr, [facility] [place] [facility] [address] [id number] [place] [address] Apr, [facility] [place] [facility] [address] [address] [id number] [place] [address] Mar, [facility] [place] [facility] [address] [id number] [place] [address] Mar, 2013 [facility] [place] [facility] [address] [id number] [place] [address] Mar, 2013 [facility] [place] [facility] [address] [id number] [place] [address] 7861 Mar, 2013 [facility] [place] [facility] [address] [id number] [place] [address] 7998 Mar, 2013 [facility] [place] [facility] [address] [id number] [place] [address] 8542 Mar, 2013 [facility] [place] [facility] [address] [id number] [place] [address] 7556 Mar, 2013 [facility] [place] [facility] [address] [id number] [place] [address] 3206 Mar, 2013 [facility] [place] [facility] [address] [id number] [place] [address] 8723 Mar, 2013 [facility] [place] [facility] [address] [id number] [place] [address] 2945 Mar, 2013 [facility] [place] [facility] [address] [id number] [place] [address] 4016 Mar, 2013 [facility] [place] [facility] [address] [id number] [place] [address] 1501 Mar, 2013 [facility] [place] [facility] [address] [id number] [place] [address]- 9935 Mar, 2013 [facility] [place] [facility] [address] [id number] [place] [address]- 8900 Mar, 2013 [facility] [place] [facility] [address] [id number] [place] [address]- 5035 Mar, 2013 [facility] [place] [facility] [address] [id number] [place] [address]- 0409 Mar, 2013 [facility] [place] [facility] [address] [id number] [place] [address] 3995 Mar, [facility] [place] [facility] [address] [id number] [place] [address] 3278 Mar, [facility] [place] [facility] [address] [id number] [place] [address]- 7914 Feb, [facility] [place] [facility] [address] [id number] [place] [address] 8649 Feb, [facility] [place] [facility] [address] [id number] [place] [address] 2806 Feb, [facility] [place] [facility] [address] [id number] [place] [address]- 1346 Feb, [facility] [place] [facility] [address] [id number] [place] [address]- 0817 Feb, [facility] [place] [facility] [address] [id number] [place] [address]- 5631 Feb, [facility] [place] [facility] [address] [id number] [place] [address]- 7312 Feb, [facility] [place] [facility] [address] [id number] [place] [address]- 7534 Feb, [facility] [place] [facility] [address] [id number] [place] [address] 7825 Feb, [facility] [place] [facility] [address] [id number] [address] 8783 Feb, [facility] [place] [facility] [address] [id number], [place] [address] 4465 Feb, [facility] [place] [facility] [address] [id number] [place] [address]- 5557 Feb, [facility] [place] [facility] [address] [id number] [place] [address]- 8183 Feb, [facility] [place] [facility] [address] [id number] [place] [address]- 8224 Feb, [facility] [place] [facility] [address] [id number] [place] [address] 0447 January, [facility] [address] [id number] [place] [address] 0798 January, [facility] [place] [facility] [address] [id number] [place] [address]- 2528 January, [facility] [place] [facility] [address] [id number] [place] [address] 4847 January, [facility] [place] [facility] [address] [id number] [place] [address] 1213 January, [facility] [place] [facility] [address] [id number] [place] [address] 0626 January, [facility] [place] [facility] [address] [id number] [place] [address] 2005 January, [facility] [address] [id number] [place] [address] 9540 January, [facility] [place] [facility] [address] [id number] [place] [address]- 9468 January, [facility] [place] [facility] [address] [id number] [place] [address]- 2491 January, [facility] [place] [facility] [address] [id number] [place] [address]- 6631 January, [facility] [place] [facility] [address] [id number] [place] [address]- 1304 January, [facility] [place] [facility] [address] [id number] [place] [address]- 3955 January, [facility] [place] [facility] [address] [id number] [place] [address]- 3335 January, [facility] [place] [facility] [address] [id number] [place] [address] 8554 Dec, [facility] [place] [facility] [address] [id number] [place] [address]- 5645 Dec, [facility] [place] [facility] [address] [id number] [place] [address]- 7240 Dec, [facility] [place] [facility] [address] [id number] [place] [address]- 7199 Dec, [facility] [place] [facility] [address] [id number] [place] [address]- 6792 Dec, [facility] [place] [facility] [address] [id number] [place] [address]- 7019 Dec, [facility] [place] [facility] [address] [id number] [place] [address]- 0845 Dec, [facility] [place] [facility] [address] [id number] [place] [address]- 9234 Dec, [facility] [place] [facility] [address] [id number] [place] [address]- 2566 Dec, [facility] [place] [facility] [address] [id number] [place] [address]- 2098 Dec, [facility] [place] [facility] [address] [id number] [place] [address]- 8364 Nov, [facility] [place] [facility] [address] [id number] [place] [address]- 8141 Nov, [facility] [place] [facility] [address] [id number] [place] [address]- 3361 Nov, [facility] [place] [facility] [address] [id number] [place] [address]- 7417 Nov, [facility] [place] [facility] [address] [id number] [place] [address]- 1048 Nov, [facility] [place] [facility] [address] [id number] [place] [address]- 3790 Nov, [facility] [place] [facility] [address] [id number] [place] [address]- 6087 Nov, [facility] [place] [facility] [address] [id number] [place] [address]- 7481 Nov, [facility] [place] [facility] [address] [id number] [place] [address]- 3869 Nov, [facility] [place] [facility] [address] [id number] [place] [address]- 9639 Nov, [facility] [place] [facility] [address] [facility] [id number] [place] [address]- 3191 Oct, [facility] [place] [facility] [address] [id number] [place] [address]- 3707 Oct, [facility] [place] [facility] [address] [id number] [place] [address]- 9597 Oct, [facility] [place] [facility] [address] [facility] [id number] [place] [address]- 5686 Oct, [facility] [place] [facility] [address] [facility] [id number] [place] [address]- 9507 Oct, [facility] [place] [facility] [address] [facility] [id number] [place] [address]- 3115 Oct, [facility] [place] [facility] [address] [facility] [id number] [place] [address]- 8056 Oct, [facility] [place] [facility] [address] [facility] [id number] [place] [address]- 9364 Oct, [facility] [place] [facility] [address] [facility] [id number] [place] [address]- 2439 Oct, [facility] [place] [facility] [address] [facility] [id number] [place] [address]- 3857 Oct, [facility] [place] [facility] [address] [facility] [id number] [place] [address]- 1678 Oct, [facility] [place] [facility] [address] [facility] [id number] [place] [address]- 2053 Oct, [facility] [place] [facility] [address] [facility] [id number] [place] [address]- 9370 Oct, [facility] [address] [id number] [place] [address]- 1295 Oct, [facility] [place] [facility] [address] [id number] [place] [address]- 7649 Sep, [facility] [place] [facility] [address] [id number] [place] [address]- 0863 Sep, [facility] [place] [facility] [address] [id number] [place] [address]- 8916 Sep, [facility] [place] [facility] [address] [id number] [place] [address]- 6839 Sep, [facility] [place] [facility] [address] [id number] [place] [address]- 3017 Sep, [facility] [place] [facility] [address] [id number] [place] [address]- 6920 Sep, [facility] [place] [facility] [address] [id number] [place] [address]- 1130 Sep, [facility] [place] [facility] [address] [id number] [place] [address]- 1664 Sep, [facility] [place] [facility] [address] [id number] [place] [address]- 5040 Sep, [facility] [place] [facility] [address] [id number] [place] [address]- 9578 Sep, [facility] [place] [facility] [address] [id number], [place] [address]- 6854 Aug, [facility] [place] [facility] [address] [id number] [place] [address]- 7536 Aug, [facility] [place] [facility] [address] [id number] [place] [address]- 3969 Jul, [facility] [place] [facility] [address] [id number] [place] [address]- 0402 Jul, [facility] [place] [facility] [address] [id number] [place] [address]- 8388 13 Jul, 2013 [facility] [place] [facility] [address] [id number] [place] [address]- 7432 13 Jul, 2013 [facility] [place] [facility] [address] [id number] [place] [address]- 1122 Jul, [facility] [place] [facility] [address] [id number] [place] [address]- 9456 Jul, [facility] [place] [facility] [address] [id number] [place] [address]- 1792 Jul, [facility] [place] [facility] [address] [id number] [place] [address]- 8287 Jul, [facility] [place] [facility] [address] [id number] [place] [address]- 9835 Jul, [facility] [place] [facility] [address] [id number] [place] [address]- 1556 Jul, [facility] [place] [facility] [address] [id number] [place] [address]- 2213 Jul, [facility] [place] [facility] [address] [id number] [place] [address]- 1699 Jul, [facility] [place] [facility] [address] [facility] [id number] [place] [address]- 7043 Jul, [facility] [place] [facility] [address] [id number] [place] [address]- 4121 Jul, [facility] [place] [facility] [address] [id number], [place] [address]- 6716 Jul, [facility] [place] [facility] [address] [id number] [place] [address]- 0156 Jul, [facility] [place] [facility] [address] [id number] [place] [address]- 7131 Jul, [facility] [place] [facility] [address] [id number], [place] [address]- 5413 Jul, [facility] [place] [facility] [address] [id number] [place] [address]- 4923 Jul, 2012 [facility] [place] [facility] [address] [id number] [place] [address]- 7791 Jun, 2012 [facility] [place] [facility] [address] [id number] [place] [address]- 4791 Jun, 2012 [facility] [place] [facility] [address] [id number] [place] [address]- 8702 Jun, 2012 [facility] [place] [facility] [address] [id number] [place] [address]- 6504 Jun, 2012 [facility] [place] [facility] [address] [id number] [place] [address]- 8845 Jun, 2012 [facility] [place] [facility] [address] [id number] [place] [address]386 Jun, 2012 [facility] [place] [facility] [address] [id number] [place] [address]- 0250 Jun, 2012 [facility] [place] [facility] [address] [id number] [place] [address]- 2804 Jun, [facility] [place] [facility] [address] [id number] [place] [address]- 9159 Jun, [facility] [place] [facility] [address] [id number] [place] [address]- 5373 Jun, [facility] [place] [facility] [address] [id number] [place] [address]- 8014 Jun, [facility] [place] [facility] [address] [id number] [place] 3408 May, 2012 [facility] [place] [facility] [address] [id number] [place] [address]- 9642 25 May, 2012 [facility] [place] [facility] [address] [id number] [place] [address]- 3064 19 May, 2012 [facility] [place] [facility] [address] [id number] [place] [address]- 0127 17 May, 2013 [facility] [place] [facility] [address] [id number] [place] [address]- 0857 11 May, 2013 [facility] [place] [facility] [address] [id number] [place] [address]- 3746 10 May, 2013 [facility] [place] [facility] [address] [id number] [place] [address]- 4007 May, [facility] [place] [facility] [address] [id number] [place] [address]- 2009 05 May, 2013 [facility] [place] [facility] [address] [id number] [place] [address]- 5283 Apr, [facility] [place] [facility] [address] [id number] [place] [address]- 8852 Apr, [facility] [place] [facility] [address] [id number] [place] [address]- 9389 Apr, [facility] [place] [facility] [address] [id number] [place] [address]- 1791 Apr, [facility] [place] [facility] [address] [id number] [place] [address]- 3707 Apr, [facility] [place] [facility] [address] [id number] [place] [address]- 1841 Mar, [facility] [place] [facility] [address] [id number] [place] [address]- 3937 Mar, [facility] [place] [facility] [address] [id number] [place] [address]- 1584 Mar, [facility] [place] [facility] [address] [id number] [place] [address]- 6988 Mar, [facility] [place] [facility] [address] [id number] [place] [address]- 9740 Mar, [facility] [place] [facility] [address] [id number] [place] [address]- 2606 Mar, [facility] [place] [facility] [address] [id number] [place] [address]- 0245 Mar, [facility] [address] [id number] [place] [address]- 3801 Mar, [facility] [address] [id number] [place] [address]- 1239 Feb, [facility] [address] [id number] [place] [address]- 9487 Feb, [facility] [address] [id number] [place] [address]- 7966 January, [facility] [address] [id number] [place] [address]- 4908 January, [facility] [address] [id number] [place] [address]- 5693 Dec, [facility] [address] [id number] [place] [address]- 3991 Dec, [facility] [address] [id number] [place] [address]- 2629 Nov, [facility] [address] [id number] [place] [address]- 6864 Nov, [facility] [address] [id number] [place] [address]- 2278 Nov, [facility] [address] [id number] [place] [address]- 1960 Nov, [facility] [address] [id number] [place] [address]- 0695 Oct, [facility] [address] [id number] [place] [address]- 8568 Oct, [facility] [address] [id number] [place] [address]- 1302 Oct, [facility] [address] [id number] [place] [address]- 1449 Oct, [facility] [address] [id number] [place] [address]- 7594 16 Oct, 2012 [facility] [place] [facility] [address] [id number] [place] [address]- 5256 14 Oct, 2012 [facility] [place] [facility] [address] [id number] [place] [address]- 1602 08 Oct, 2012 [facility] [place] [facility] [address] [id number] [place] [address]- 5752 07 Oct, 2012 [facility] [place] [facility] [address] [id number] [place] [address]- 7017 Oct, [facility] [place] [facility] [address] [id number] [place] [address]- 1693 Sep, [facility] [place] [facility] [address] [id number] [place] [address]- 5978 Sep, [facility] [place] [facility] [address] [id number] [place] [address]- 5739 Sep, [facility] [place] [facility] [address] [id number] [place] [address]- 4658 Sep, [facility] [place] [facility] [address] [id number] [place] [address]- 2163 Sep, [facility] [place] [facility] [address] [id number] [place] [address]- 5092 Sep, [facility] [place] [facility] [address] [id number] [place] [address]- 2418 Sep, [facility] [place] [facility] [address] [id number] [place] [address]- 4762 Sep, [facility] [place] [facility] [address] [id number] [place] [address]- 5536 Aug, [facility] [place] [facility] [address] [id number] [place] [address]- 9232 Aug, [facility] [place] [facility] [address] [id number] [place] [address]- 3321 Aug, [facility] [address] [id number] [place] [address]- 5292 Aug, [facility] [place] [facility] [address] [id number] [place] [address]- 6718 Aug, [facility] [address] [id number] [place] [address]- 0188 Aug, [facility] [place] [facility] [address] [id number] [place] [address]- 1409 Aug, [facility] [address] [id number] [place] [address], [place] [address]- 1425 Aug, [facility] [place] [facility] [address] [id number] [place] [address]- 8530 Jul, [facility] [place] [facility] [address] [id number] [place] [address]- 9145 Jul, [facility] [place] [facility] [address] [id number] [place] [address]- 8274 Jul, [facility] [place] [facility] [address] [facility] [id number] [place] [address]- 7280 Jul, [facility] [address] [facility] [id number] [place] [address]- 3503 Jul, [facility] [place] [facility] [address] [facility] [id number] [place] [address]- 5247 Jul, [facility] [place] [facility] [address] [id number] [place] [address]- 6802 Jun, [facility] [place] [facility] [address] [id number] [place] [address]- 0752 Jun, [facility] [place] [facility] [address] [facility] [id number] [place] [address]- 0747 Jun, [facility] [place] [facility] [address] [facility] [id number] [place] [address] Jun, [facility] [place] [facility] [address] [id number] [place] [address] Jun, [facility] [place] [facility] [address] [id number] [place] [address] Jun, [facility] [place] [facility] [address] [id number] [place] [address] Jun, [facility] [place] [facility] [address] [id number] [place] [address]70 Jun, [facility] [place] [facility] [address] [id number] [place] [address] Jun, [facility] [place] [facility] [address] [id number] [place] [address] 26 May, 2012 [facility] [place] [facility] [address] [id number] [place] [address] 24 May, 2012 [facility] [place] [facility] [address] [id number] [place] [address]67 18 May, 2012 [facility] [place] [facility] [address] [id number] [place] [address] 30 Apr, 2012 [facility] [place] [facility] [address] [id number] [place] [address] 7084 29 Apr, 2012 [facility] [place] [facility] [address] [id number], [place] [address] Apr, [facility] [place] [facility] [address] [id number], [place] [address] 14 Apr, 2012 [facility] [place] [facility] [address] [id number] [place] [address] Apr, [facility] [place] [facility] [address] [id number], [place] [address] Apr, [facility] [place] [facility] [address] [id number], [place] [address] Mar, [facility] [place] [facility] [address] [id number], [place] [address] Mar, [facility] [address] [id number] [place] [address] Mar, [facility] [place] [facility] [address] [id number] [place] [address]279 Mar, [facility] [place] [facility] [address] [id number] [place] [address] Feb, [facility] [place] [facility] [address] [id number] [place] [address] 8540 Feb, [facility] [place] [facility] [address] [id number] [place] [address] 2046 Feb, [facility] [place] [facility] [address] [id number] [place] [address]- [address]283 Feb, [facility] [address] [id number] [place] [address] Feb, [facility] [place] [facility] [address] [id number] [place] [address]44 January, [facility] [place] [facility] [address] [id number] [place] [address] January, [facility] [place] [facility] [address] [id number] [place] [address] January, [facility] [place] [facility] [address] [id number] [place] [address] January, [facility] [place] [facility] [address] [id number] [place] [address] 74[address] January, [facility] [place] [facility] [address] [id number] [place] [address] January, [facility] [place] [facility] [address] [id number] [place] [address] 9427 Dec, [facility] [place] [facility] [address] [id number] [place] [address] Dec, [facility] [place] [facility] [address] [id number] [place] [address] 1739 17 Dec, 2011 [facility] [place] [facility] [address] [id number] [place] [address] 9239 09 Dec, 2011 [facility] [place] [facility] [address] [id number] [place] [address] 4834 06 Dec, 2011 [facility] [place] [facility] [address] [id number] [place] [address] 1780 27 Nov, 2011 [facility] [place] [facility] [address] [id number] [place] [address] 0659 14 Nov, 2011 [facility] [place] [facility] [address] [id number] [place] [address] Nov, [facility] [place] [facility] [address] [facility] [id number] [place] [address] 07 Nov, 2011 [facility] [place] [facility] [address] [id number] [place] [address] 3192 29 Oct, 2011 [facility] [place] [facility] [address] [id number] [place] [address] 4[address] 28 Oct, 2011 [facility] [place] [facility] [address] [id number] [place] [address] 24 Oct, 2011 [facility] [place] [facility] [address] [id number] [place] [address] 1766 13 Oct, 2011 [facility] [place] [facility] [address] [id number] [place] [address]- 1405 08 Oct, 2011 [facility] [place] [facility] [address] [id number] [place] [address] 6843 Sep, [facility] [place] [facility] [address] [id number] [place] [address]- 5981 30 Sep, 2011 [facility] [place] [facility] [address] [id number] [place] [address]105 12 Sep, 2011 [facility] [place] [facility] [address] [id number] [place] [address]- 1875 Sep, [facility] [place] [facility] [address] [id number] [place] [address] 4719 Sep, [facility] [place] [facility] [address] [id number] [place] [address]- 4180 Sep, [facility] [place] [facility] [address] [id number] [place] [address]- [address] Aug, [facility] [place] [facility] [address] [id number] [place] [address]- 3044 Aug, [facility] [place] [facility] [address] [id number] [place] [address]- 7076 Aug, [facility] [place] [facility] [address] [id number] [place] [address] 0650 Jul, [facility] [place] [facility] [address] [id number] [place] [address]- 6548 Jul, [facility] [place] [facility] [address] [id number] [place] [address]- 2015 Jul, [facility] [place] [facility] [address] [id number] [place] [address]- 2263 Jul, [facility] [place] [facility] [address] [id number] [place] [address]- 8255 Jun, [facility] [place] [facility] [address] [id number] [place] [address]- 9257 Jun, [facility] [place] [facility] [address] [id number], [place] [address] 9936 18 Jun, 2011 [facility] [place] [facility] [address] [id number] [place] [address]- 4950 Jun, [facility] [place] [facility] [address] [id number] [place] [address]- 4193 Jun, [facility] [place] [facility] [address] [id number] [place] [address]- 5612 Jun, [facility] [place] [facility] [address] [id number] [place] [address]- 1733 11 Mar, 2011 [facility] [address] [id number] [place] [address]- 4030 18 Dec, 2010 [facility] [address] [id number] [place] [address]- 2546 11 Dec, 2010 [facility] [address] [id number] [place] [address]- 6376 18 Nov, 2010 [facility] [address] [id number] [place] [address]- 4108 16 Nov, 2010 [facility] [address] [id number] [place] [address]- 9329 10 Sep, 2010 [facility] [address] [id number] [place] [address]- 2316 31 Aug, 2010 [facility] [address] [id number] [place] [address]- 2548 29 Aug, 2010 [facility] [address] [id number] [place] [address] 29 Aug, 2010 [facility] [address] [id number] [place] [address] 29 Aug, 2010 [facility] [address] [id number] [place] [address] 27 Aug, 2010 [facility] [address] [id number] [place] [address] 14 Aug, 2010 [facility] [address] [id number] [place] [address] 08 Aug, 2010 [facility] [address] [id number] [place] [address] 08 Aug, 2010 [facility] [address] [id number] [place] [address] 07 Aug, 2010 [facility] [address] [id number] [place] [address] Aug, [facility] [place] [facility] [address] [id number] [place] [address] Aug, [facility] [place] [facility] [address] [id number] [place] [address] Aug, [facility] [place] [facility] [address] [id number] [place] [address] Jul, [facility] [place] [facility] [address] [id number] [place] [address] Jul, [facility] [place] [facility] [address] [id number] [place] [address] Jul, [facility] [place] [facility] [address] [id number] [place] [address] Jul, [facility] [place] [facility] [address] [id number] [place] [address] Jul, [facility] [place] [facility] [address] [id number] [address] Jul, [facility] [place] [facility] [address] [id number] [place] [address] Jun, [facility] [place] [facility] [address] [facility] [id number] [address] Jun, [facility] [place] [facility] [address] [id number] [address] Jun, [facility] [place] [facility] [address] [id number], [place] [address] Jun, [facility] [place] [facility] [address] [id number][place] [address] Apr, [facility] [place] [facility] [address] [id number], [place] [address] Mar, [facility] [place] [facility] [address] [id number], [place] [address] Feb, [facility] [place] [facility] [address] [id number] [address] January, [facility] [place] [facility] [address] [facility] [id number], [place] [address] 15 Dec, 2009 [facility] [place] [facility] [address] [facility] [id number][place] [address] Nov, [facility] [place] [facility] [address] [facility] [id number], [place] [address] 31 Aug, 2009 [facility] [place] [facility] [address] [facility] [id number][place] [address] Aug, [facility] [place] [facility] [address] [facility] [id number] [place] [address] Aug, [facility] [place] [facility] [address] [facility] [id number], [place] [address] Jul, [facility] [place] [facility] [id number] [place] [address] Jul, [facility] [place] [facility] [address] [facility] [id number], [place] [address] Jul, [facility] [place] [facility] [address] [id number], [place] [address] 30 Jun, 2009 [facility] [place] [facility] [address] [id number], [place] [address] 29 Jun, 2009 [facility] [place] [facility] [address] [facility] [id number], [place] [address] Jun, [facility] [place] [facility] [address] [facility] [id number], [place] [address] Jun, [facility] [place] [facility] [address] [facility] [id number][place] [address] Jun, [facility] [place] [facility] [address] [facility] [id number], [place] [address] Jun, [facility] [place] [facility] [address] [facility] [id number], [place] [address] Apr, [facility] [place] [facility] [address] [facility] [id number] [place] [address] Apr, [facility] [address] [facility] [id number] [address] Feb, [facility] [address] [facility] [id number], [place] [address] January, [facility] [address] [facility] [id number], [place] [address] Dec, IMMUNIZATIONS No Known Immunizations SOCIAL HISTORY Never Assessed REASON FOR VISIT Controlled Med Refill 10/24/17 PLAN OF CARE VITAL SIGNS MEDICATIONS Medication [...] 2009 Surgical History colonoscopy 2009 ([facility]), 2013 ([place]) Surgical History heart cath: CAD w/ PTCA [...] urinate 09/16/15 Hospitalization History [facility] early 2000's Hospitalization History hyperkalemia 10/2017 Hospitalization History fluid in lung
--- OUTSIDE RECORDS SUMMARY | 2018-08-08 13:03 | XMS REPORT ---
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 Name Role Phone NOEMI WASHBURN Unavailable PROBLEMS Type Condition ICD9-CM Code GJR14-IM Code Onset Dates Condition Status SNOMED Code Problem Chronic lymphocytic leukemia C91.10 Active 63782669 Problem Insomnia, unspecified type G47.00 Active 711169863 Problem Lymphocytosis D72.820 Active 35363375 Problem Anxiety F41.9 Active 73794802 Problem Eye exam abnormal R93.8 Active 239163175 Problem Morbid obesity E66.01 Active 020082427 Problem Diabetic polyneuropathy associated with type 2 diabetes mellitus E11.42 Active 49553322 Problem Essential hypertension I10 Active 44046310 Problem Falling R29.6 Active 150812658 Problem 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 Active 896401953 Problem Cough R05 Active 87397662 Problem Dysuria R30.0 Active 21160918 Problem Eustachian tube dysfunction, unspecified laterality H69.80 Active 40806049 Problem Bilateral primary osteoarthritis of knee M17.0 Active 821796463 Problem Polyneuropathy associated with underlying disease G63 Active 305154249 Problem Anemia of chronic illness D63.8 Active 469601781 Problem Retinal edema H35.81 Active 4196347 Problem DM neuro manif type II E11.49 Active 83033029 Problem Diabetes E11.9 Active 22837488 Problem Hypokalemia E87.6 Active 46446065 Problem Benign prostatic hyperplasia with lower urinary tract symptoms, unspecified morphology N40.1 Active 378614298 Problem Reactive airway disease J45.909 Active 042544768168 Problem Bipolar I disorder, most recent episode (or current) mixed, moderate F31.62 Active 70682744 Problem Chronic pain G89.29 Active 73723165 Problem Leukocytosis D72.829 Active 150169832 ALLERGIES No Information ENCOUNTERS Encounter Location Date Diagnosis [facility], [place] [address] [address] Mar, [facility] [place] [address] [place] [address] Mar, [facility] [place] [address] [address] 5[address] Mar, [facility] [place] [address] [address] 78[address] Mar, [facility] [place] [address] [address] 87[address] Feb, [facility] [place] [id number] [place] [address] 737628- 6806 Feb, Decubitus ulcer of right foot, stage 3 L89.893 and BMI 50.0- 59.9, adult Z68.43 [facility] [place] [address], [place] [address] Feb, Bipolar I disorder, most recent episode (or current) mixed, moderate F31.62 [facility] [place] [address] [address] 89[address] Feb, [facility] [place] [address] [place] [address] 15[address] January, [facility] [place] [address] [place] [address] 9[address] January, Chronic pain G89.29 [facility] [place] [address], [place] [address] 5058 January, Bipolar I disorder, most recent episode (or current) mixed, moderate F31.62 [facility] [place] [address] [place] [address] 9262 January, Bipolar I disorder, most recent episode (or current) mixed, moderate F31.62 [facility] [place] [address] [address] 3536 Dec, Bipolar I disorder, most recent episode (or current) mixed, moderate F31.62 and BMI 50.0-59.9, adult Z68.43 [facility] [place] [address] [address] Dec, Bipolar I disorder, most recent episode (or current) mixed, moderate F31.62 [place] [address] [address]- 6074 Dec, Chronic pain G89.29 [place] [address] 19728- 4644 Dec, DM neuro manif type II E11.49 ; Right flank pain R10.9 ; 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 ; Encounter for medication monitoring Z51.81 and BMI 50.0-59.9, adult Z68.43 [place] [address] [address]- 7861 Dec, Bipolar I disorder, most recent episode (or current) mixed, moderate F31.62 [place] [address] [place] [id number] [place] [address] 78213- 5858 Nov, Bipolar I disorder, most recent episode (or current) mixed, moderate F31.62 [place] [address] [place] [id number] [place] [address] 51931- 8349 Nov, Chronic pain G89.29 [place] [address] 29860- 2584 Nov, Bipolar I disorder, most recent episode (or current) mixed, moderate F31.62 [place] [address] [place] [id number] [place] [address] 46598- 5128 Nov, Hypokalemia E87.6 [place] [address] [place] [id number] [place] [address] 48150- 1519 Nov, Bipolar I disorder, most recent episode (or current) mixed, moderate F31.62 [place] [address] [place] [address]- 6530 Oct, Chronic pain G89.29 [place] [address] 90193- 5759 Oct, BMI 50.0-59.9, adult Z68.43 and Bipolar I disorder, most recent episode (or current) mixed, moderate F31.62 [place] [address] 23881- 8904 Oct, Bipolar I disorder, most recent episode (or current) mixed, moderate F31.62 [place] [address] 14537- 7935 Oct, [place] [address] 09837- 8753 Oct, Hypokalemia E87.6 [place] [address] 40475- 0827 Oct, DM neuro manif type II E11.49 [place] [address] [place] [id number] [place] [address] 76721- 7283 Oct, Bipolar I disorder, most recent episode (or current) mixed, moderate F31.62 [place] [address] [place] [id number] [place] [address] 19231- 2640 Oct, Bipolar I disorder, most recent episode (or current) mixed, moderate F31.62 [place] [address] [place] [id number] [place] [address] 65634- 7868 Oct, Hyperkalemia E87.5 ; Falling R29.6 ; BMI 50.0-59.9, adult Z68.43 and Acute left ankle pain M25.572 [place] [address] 62511- 4746 Oct, DM neuro manif type II E11.49 [place] [address] 87742- 4525 Oct, [place] [id number] [place] [address] 74051- 1211 Sep, Chronic pain G89.29 [place] [address] [place] [id number] [place] [address] 25851- 9408 Sep, [place] [address] [place] [id number] [place] [address] 33774- 3613 Sep, Bilateral primary osteoarthritis of knee M17.0 [place] [address] [place] [id number] [place] [address] 23382- 8993 Sep, Generalized edema R60.[address] [address]- 3444 Sep, Bipolar I disorder, most recent episode (or current) mixed, moderate F31.62 [place] [id number] [place] [address] 27561- 3367 Sep, Hypoxia R09.02 ; Other hypervolemia E87.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 ; Anemia of chronic illness D63.8 and BMI 50.0- 59.9, adult Z68.43 [place] [id number] [place] [address] 32684- 2263 Sep, [place] [address] [place] [id number] [place] [address] 21181- 6990 Sep, Bipolar I disorder, most recent episode (or current) mixed, moderate F31.62 [place] [address] [place] [id number] [place] [address] 53056- 5728 Aug, Chronic pain G89.29 [place] [address] [place] [id number] [place] [address] 59697- 1799 Aug, Generalized edema R60.1 [place] [address] [place] [id number] [place] [address] 30381- 4957 Aug, [place] [id number] [place] [address] 08547- 8969 Aug, [place] [address] [place] [id number] [place] [address] 48291- 3961 Aug, Bipolar I disorder, most recent episode (or current) mixed, moderate F31.62 [place] [address] [place] [id number] [place] [address] 92258- 7691 Aug, Bipolar I disorder, most recent episode (or current) mixed, moderate F31.62 [place] [address] [place] [id number] [place] [address] 45912- 7236 Aug, Chronic pain G89.29 [place] [address] [place] [id number] [place] [address] 13343- 4111 Jul, Bipolar I disorder, most recent episode (or current) mixed, moderate F31.62 [place] [address] [place] [id number] [place] [address] 13782- 5353 Jul, Bipolar I disorder, most recent episode (or current) mixed, moderate F31.62 and BMI 60.0-69.9, adult Z68.44 [place] [address] [place] [id number] [place] [address] 53250- 8593 Jul, Bipolar I disorder, most recent episode (or current) mixed, moderate F31.62 [place] [address] [place] [id number] [place] [address] 92941- 0837 Jul, Chronic pain G89.29 [place] [address] [place] [id number] [place] [address] 13651- 1971 Jul, Bipolar I disorder, most recent episode (or current) mixed, moderate F31.62 [place] [address] [place] [id number] [place] [address] 71507- 5833 Jun, Polyneuropathy associated with underlying disease G63 and Diabetes E11.9 [place] [address] [place] [id number] [place] [address] 84122- 8884 Jun, Bipolar I disorder, most recent episode (or current) mixed, moderate F31.62 [facility] [place] [id number] [place] [address] 43984- 0935 09 Jun, 2017 Chronic pain G89.29 [facility] [place] [id number] [place] [address] 86976- 5282 27 May, 2017 Bipolar I disorder, most recent episode (or current) mixed, moderate F31.62 [facility] [place] [address] [id number] [place] [address] 10507- 8545 21 May, 2017 Bipolar I disorder, most recent episode (or current) mixed, moderate F31.62 [facility] [place] [address] [place] [id number] [place] [address] 013840- 1392 20 May, 2017 Diabetic polyneuropathy associated with type 2 diabetes mellitus E11.42 [facility] [place] [address] [id number] [place] [address] 61733- 1143 18 May, 2017 Bipolar I disorder, most recent episode (or current) mixed, moderate F31.62 [facility] [place] [id number] [place] [address] 53043- 0414 13 May, 2017 Bipolar I disorder, most recent episode (or current) mixed, moderate F31.62 [facility] [place] [id number] [place] [address] 54396- 6233 May, Chronic pain G89.29 [facility] [place] [id number] [place] [address] 40863- 4913 Apr, Bipolar I disorder, most recent episode (or current) mixed, moderate F31.62 [facility] [place] [id number] [place] [address] 77532- 0261 Apr, [facility] [place] [address] [place] [id number] [place] [address] 39235- 3349 Apr, Chronic pain G89.29 and DM neuro manif type II E11.49 [facility] [place] [address] [place] [id number] [place] [address] 05950- 2132 Apr, [facility] [place] [address] [address]- 3696 Apr, Bipolar I disorder, most recent episode (or current) mixed, moderate F31.62 [facility] [place] [address] [place] [address]- 3166 Apr, Chronic pain G89.29 [facility] [place] [address] [place] [id number] [place] [address] 16142- 4226 Apr, Iliotibial band syndrome, left M76.32 [facility] [place] [id number] [place] [address] 82324- 7623 Apr, Bipolar I disorder, most recent episode (or current) mixed, moderate F31.62 [facility] [place] [id number] [place] [address] 21988- 9544 Mar, Bipolar I disorder, most recent episode (or current) mixed, moderate F31.62 [facility] [place] [id number] [place] [address] 14274- 7941 Mar, Bipolar I disorder, most recent episode (or current) mixed, moderate F31.62 [facility] [place] [id number] [place] [address] 60480- 1951 Mar, [facility] [place] [id number] [place] [address] 08186- 7437 Mar, Bipolar I disorder, most recent episode (or current) mixed, moderate F31.62 [facility] [place] [address], [place] [address]- 1298 Mar, Chronic pain G89.29 [facility] [place] [id number] [place] [address] 10439- 1633 Mar, Bipolar I disorder, most recent episode (or current) mixed, moderate F31.62 [facility] [place] [address], [place] [address]- 9641 Mar, Bipolar I disorder, most recent episode (or current) mixed, moderate F31.62 [place] [id number] [place] [address] 00962- 4363 Mar, Acute pain of left knee M25.562 ; Left hip pain M25.552 ; Generalized edema R60.1 and Tongue swelling R22.0 [place] [address] [place] [id number] [place] [address] 93822- 9998 Mar, [place] [address] [place] [id number] [place] [address] 23625- 9113 Feb, Chronic pain G89.29 [place] [address] 59544- 8810 Feb, Diabetes E11.9 [place] [address] [place] [id number] [place] [address] 83855- 1348 January, Chronic pain G89.29 [place] [address] [place] [id number] [place] [address] 06247- 9631 January, [place] [address] [place] [id number] [place] [address] 90680- 1940 January, Bipolar I disorder, most recent episode (or current) mixed, moderate F31.62 [place] [address] [place] [id number] [place] [address] 95628- 8873 Dec, Bipolar I disorder, most recent episode (or current) mixed, moderate F31.62 [place] [address] [place] [id number] [place] [address] 43700- 4226 Dec, Chronic pain G89.29 [place] [address] [place] [id number] [place] [address] 61973- 4924 Dec, Bipolar I disorder, most recent episode (or current) mixed, moderate F31.62 [place] [address] [place] [id number] [place] [address] 64354- 0630 Dec, Diabetes E11.9 ; Essential hypertension I10 ; Chronic pain G89.29 and Morbid obesity E66.01 [place] [address] [place] [address]- 3136 Dec, [facility] [place] [address] [address]- 0866 Dec, Bipolar I disorder, most recent episode (or current) mixed, moderate F31.62 [facility] [place] [address] 0686 Dec, Bipolar I disorder, most recent episode (or current) mixed, moderate F31.62 [facility] [place] [address], [place] [address]- 0326 Nov, Chronic pain G89.29 [facility] [place] [address] [place] [id number] [place] [address] 19577- 8192 Nov, Bipolar I disorder, most recent episode (or current) mixed, moderate F31.62 [facility] [place] [address], [place] [address]- 1486 Nov, [facility] [place] [address] [id number] [address]- 4880 Nov, Bipolar I disorder, most recent episode (or current) mixed, moderate F31.62 [facility] [place] [address], [place] [address]- 8470 Nov, Bipolar I disorder, most recent episode (or current) mixed, moderate F31.62 [facility] [place] [address], [place] [address]- 4336 Nov, [facility] [place] [address], [place] [address]- 2546 Nov, [facility] [place] [address], [place] [address]- 2136 Nov, [facility] [place] [address], [place] [address]- 0186 Oct, Chronic pain G89.29 [facility] [place] [address], [place] [address]- 1766 Oct, Bipolar I disorder, most recent episode (or current) mixed, moderate F31.62 [facility] [place] [address] [place] [id number] [place] [address] 58307- 1336 Oct, [facility] [place] [address] [place] [id number] [place] [address] 85606- 4746 15 Oct, 2016 Chronic pain G89.29 ; Diabetes E11.9 ; Anxiety F41.9 and 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 [facility] [place] [address] [place] [id number] [place] [address] 60876- 4827 Oct, [facility] [place] [address] [place] [id number] [place] [address] 77914- 9938 Oct, Diabetes E11.9 [facility] [place] [address] [place] [id number] [place] [address] 06250- 8753 Oct, Bipolar I disorder, most recent episode (or current) mixed, moderate F31.62 [facility] [place] [address] [place] [id number] [place] [address] 23872- 1158 Sep, Chronic pain G89.29 [facility] [place] [address] [place] [id number] [place] [address] 75025- 7764 Sep, Chronic pain G89.29 [facility] [place] [address] [place] [id number] [place] [address] 92514- 2826 Aug, Chronic pain G89.29 [facility] [place] [address] [place] [id number] [place] [address] 98070- 0924 Jul, [facility] [place] [address] [place] [id number] [place] [address] 41267- 3310 Jul, Diabetes E11.9 [facility] [place] [address] [place] [id number] [place] [address] 34105- 2942 Jul, Chronic pain G89.29 [facility] [place] [address] [place] [id number] [place] [address] 27988- 9221 Jul, Bipolar I disorder, most recent episode (or current) mixed, moderate F31.62 [facility] [place] [address] [place] [id number] [place] [address] 79454- 0180 Jun, Bipolar I disorder, most recent episode (or current) mixed, moderate F31.62 [facility] [place] [address] [place] [id number] [place] [address] 88168- 8288 Jun, [facility] [place] [address] 44718- 6421 Jun, Bipolar I disorder, most recent episode (or current) mixed, moderate F31.62 [facility] [place] [address] [place] [id number] [place] [address] 49065- 8168 30 May, 2016 Insomnia, unspecified type G47.00 [facility] [place] [address] [place] [id number] [place] [address] 22817- 0547 May, Bipolar I disorder, most recent episode (or current) mixed, moderate F31.62 [facility] [place] [address] [place] [id number] [place] [address] 71038- 5853 14 May, 2016 [facility] [place] [address] 94020- 0912 08 May, 2016 Bipolar I disorder, most recent episode (or current) mixed, moderate F31.62 [facility] [place] [address] [place] [id number] [place] [address] 17063- 3752 May, Diabetes E11.9 and Essential hypertension I10 [facility] [place] [address] [id number] [place] [address] 01211- 6225 Apr, Chronic pain G89.29 [facility] [place] [address] 80469- 1397 Apr, Bipolar I disorder, most recent episode (or current) mixed, moderate F31.62 [facility] [place] [address] [id number] [place] [address] 31130- 8816 Apr, [facility] [place] [address] 14471- 7024 Apr, [facility] [place] [address] [id number] [place] [address] 03720- 3163 Mar, Chronic pain G89.29 ; Headache, unspecified headache type R51 ; Neuropathy G62.9 ; Pain of right hip joint M25.551 and Essential hypertension I10 [place] [address] [place] [id number] [place] [address] 06151- 0888 Mar, Chronic pain G89.29 [place] [address] 05634- 7620 Mar, Bipolar I disorder, most recent episode (or current) mixed, moderate F31.62 [place] [address] [place] [id number] [place] [address] 99855- 9436 Feb, Bipolar I disorder, most recent episode (or current) mixed, moderate F31.62 and Insomnia, unspecified type G47.00 [place] [address] [place] [id number] [place] [address] 32819- 8318 Feb, Chronic pain G89.29 [place] [address] [place] [id number] [place] [address] 88069- 2938 Feb, Bipolar I disorder, most recent episode (or current) mixed, moderate F31.62 [place] [address] [place] [id number] [place] [address] 46143- 1939 January, Bipolar I disorder, most recent episode (or current) mixed, moderate F31.62 [place] [address] [place] [id number] [place] [address] 20350- 8438 January, Chronic pain G89.29 [place] [address] [place] [id number] [place] [address] 35240- 3188 January, Chronic pain G89.29 and Essential hypertension I10 [place] [address] [id number] [place] [address] 84942- 5412 January, Bipolar I disorder, most recent episode (or current) mixed, moderate F31.62 [place] [address] [place] [address]- 0058 Dec, [facility] [place] [id number] [place] [address] 16884- 6055 Dec, [facility] [place] [id number] [place] [address] [id number]- [id number] Dec, [facility], [place] [id number] [place] [address] [id number]- [phone] Dec, [facility], [place] [id number] [place] [address] 15042- 0230 Nov, Reactive airway disease J45.909 [facility], [place] [id number] [place] [address] [phone]- [phone] Nov, [facility], [place] [id number] [place] [address] [id number]- [phone] Nov, [facility], [place] [id number] [place] [address] [id number]- [id number] Nov, [facility], [place] [id number] [place] [address] [id number]- [id number] Nov, [facility], [place] [id number] [place] [address] [id number]- [id number] Nov, Onychomycosis B35.1 ; Hammertoe M20.40 ; [place] or callus L84 and DM neuro manif type II E11.49 [facility], [place] [id number] [place] [address] [id number]- 1043 Nov, Chronic pain G89.29 ; Leukocytosis D72.829 and Diabetes E11.9 [facility], [place] [id number] [place] [address] [id number]- [id number] Nov, [facility], [place] [id number] [place] [address] [id number]- [phone] Oct, Bronchitis J40 [facility], [place] [id number] [place] [address] 50572- 8208 Oct, [facility] [place] [id number] [place] [address] 28443- 4052 Oct, [facility] [place] [id number] [place] [address] 39366- 1440 Oct, Mastoiditis, unspecified laterality H70.90 and Type 2 diabetes mellitus with complication E11.8 [place] [id number] [place] [address] 45201- 1588 Sep, [place] [id number] [place] [address] 23133- 9391 Sep, Dysuria R30.0 ; Cough R05 ; Benign prostatic hyperplasia with lower urinary tract symptoms, unspecified morphology N40.1 ; Hypokalemia E87.6 and Eustachian tube dysfunction, unspecified laterality H69.80 [place] [id number] [place] [address] 91865- 6993 Sep, Moderate mixed bipolar I disorder F31.62 [place] [id number] [place] [address] 73627- 8221 Sep, Hypokalemia E87.6 [place] [id number] [place] [address] 35579- 4195 Sep, [place] [id number] [place] [address] 00589- 3304 Sep, Upper respiratory tract infection, unspecified type J06.9 [place] [id number] [place] [address] 81353- 1318 Aug, [place] [id number] [place] [address] 30045- 3932 Aug, Dysuria R30.0 [facility], [place] [id number] [place] [address] 19175- 3643 Aug, [facility], [place] [id number] [place] [address] 03239- 3595 Jul, [facility], [place] [address] [address] 1744 Jul, [facility], [place] [address] [address]- 3083 Jul, [facility], [place] [address] [address]- 7503 Jul, [facility], [place] [id number] [place] [address] 70708- 6675 Jun, [facility], [place] [address] [address]- 2114 Jun, [facility], [place] [address] [address]- 4499 Jun, [facility], [place] [id number] [place] [address] 73531- 1720 May, [facility], [place] [id number] [place] [address] 43507- 7575 May, Bipolar I disorder, most recent episode (or current) mixed, moderate 296.62 [facility], [place] [address] [address]- 7772 16 May, 2015 [facility], [place] [address], [place] [address]- 6975 May, Bipolar I disorder, most recent episode (or current) mixed, moderate 296.62 and Major depressive disorder, recurrent episode, severe, specified as with psychotic behavior 296.34 [facility], [place] [address] [address]- 3409 May, Bipolar I disorder, most recent episode (or current) mixed, moderate 296.62 [facility], [place] [address] 3315 May, [facility], [place] [address] [address]- 6612 Apr, [facility], [place] [id number] [address]- 2943 Apr, [facility], [place] [id number] [place] [address] 80299- 9609 Apr, Unspecified disorder of kidney and ureter 593.9 and Diabetes mellitus type 2, uncontrolled 250.02 [facility], [place] [id number] [place] [address] 63679- 0212 Apr, [facility], [place] [id number] [place] [address] 60942- 7695 Apr, [facility], [place] [id number] [place] [address] 59768- 5059 Apr, [facility], [place] [id number] [place] [address] 35572- 8330 Apr, [facility], [place] [id number] [place] [address] 04948- 0049 Apr, Diabetes mellitus type II, uncontrolled 250.02 [facility], [place] [id number] [place] [address] 14293- 4939 Apr, [facility], [place] [id number] [place] [address] 58903- 3504 Mar, [facility], [place] [id number] [place] [address] 28915- 4496 Mar, [facility], [place] [id number] [place] [address] 88026- 5085 Mar, [facility], [place] [id number] [place] [address] 51790- 0679 Mar, Major depressive disorder, recurrent episode, severe, specified as with psychotic behavior 296.34 and Bipolar I disorder, most recent episode (or current) mixed, moderate 296.62 [facility], [place] [id number] [place] [address] 29005- 5561 Mar, Diabetes 250.00 ; Anuria 788.5 ; Nausea and vomiting 787.01 and Diarrhea 787.91 [facility], [place] [address] [address]- 0283 Mar, Diabetes 250.00 [facility], [place] [id number] [place] [address] 43111- 0106 Mar, [facility], [place] [id number] [place] [address] 38359- 2809 Mar, Diabetes 250.00 [facility], [place] [id number] [place] [address] 25047- 1384 Mar, [facility], [place] [id number] [place] [address] 04471- 0518 Mar, [facility], [place] [id number] [place] [address] 65658- 1374 Mar, [facility], [place] [id number] [place] [address] 57068- 5298 Mar, [facility], [place] [id number] [place] [address] 70334- 9317 Mar, Bipolar I disorder, most recent episode (or current) mixed, moderate 296.62 and Major depressive disorder, recurrent episode, severe, specified as with psychotic behavior 296.34 [place] [id number] [place] [address] 26198- 1167 Mar, Magnesium deficiency 275.2 ; Hypokalemia 276.8 ; Nausea & vomiting 787.01 and Diabetes mellitus type 2, uncontrolled 250.02 [facility], [place] [id number] [place] [address] 26342- 8971 Feb, [facility], [place] [id number] [place] [address] 23349- 6065 Feb, Bipolar I disorder, most recent episode (or current) mixed, moderate 296.62 [facility], [place] [id number] [place] [address] 73804- 8383 Feb, Nausea and vomiting 787.01 ; Left elbow pain 719.42 ; Anuria 788.5 and Diabetes 250.00 [facility], [place] [address] [address]- 2329 Feb, [facility], [place] [id number] [place] [address] 30446- 8620 Feb, Hypopotassemia 276.8 and Hypokalemia 276.8 [facility], [place] [address], [place] [address]- 8063 Feb, Hypopotassemia 276.8 and Hypokalemia 276.8 [facility], [place] [address], [place] [address]- 7565 Feb, Seborrheic keratoses 702.19 [facility], [place] [id number] [place] [address] 34681- 0555 Feb, Hypopotassemia 276.8 and Low magnesium levels 275.2 [facility], [place] [id number] [place] [address] 92086- 5209 January, [facility], [place] [address], [place] [address]- 2818 January, [facility], [place] [id number] [place] [address] 30521- 3355 January, [facility], [place] [address], [place] [address]- 8816 January, Scalp lesion 709.9 [facility], [place] [id number] [place] [address] 48143- 7526 January, [facility], [place] [address], [place] [address]- 0860 Dec, Tear of medial cartilage or meniscus of knee, current 836.0 and 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 [facility], [place] [address], [place] [address]- 1238 Dec, [facility], [place] [address], [place] [address]- 7706 Dec, [facility], [place] [address] [place] [address]- 7901 28 Dec, 2014 Squamous cell carcinoma, 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 [facility] [place] [facility] [address] [id number] [place] [address]- 7111 14 Dec, 2014 [facility] [place] [facility] [address] [id number] [place] [address]- 4756 13 Dec, 2014 [facility] [place] [facility] [address] [id number] [place] [address]- 8707 27 Nov, 2014 [facility] [place] [facility] [address] [id number] [place] 3115 Nov, [facility] [place] [facility] [address] [id number] [place] [address]- 1193 Nov, [facility] [place] [facility] [address] [facility] [id number] [place] [address]- 8812 Nov, [facility] [place] [facility] [address] [id number] [place] [address]- 1911 Nov, [facility] [place] [facility] [address] [facility] [id number] [place] [address]- 4415 Nov, [facility] [place] [facility] [address] [facility] [id number] [place] [address]- 9105 Nov, [facility] [place] [facility] [address] [facility] [id number] [place] [address]- 1479 Nov, [facility] [place] [facility] [address] [id number] [address]- 7065 Nov, [facility] [place] [facility] [address] [id number] [place] 6311 Nov, [facility] [place] [facility] [address] [id number] [place] [address]- 0524 Nov, [facility] [place] [facility] [address] [facility] [id number], [place] [address]- 3459 Nov, [facility] [place] [facility] [address] [facility] [id number] [address]- 2596 Oct, 2014 [facility] [place] [facility] [address] [id number] [place] [address]- 0480 Oct, 2014 [facility] [place] [facility] [address] [id number] [place] [address]- 4986 Oct, 2014 [facility] [place] [facility] [address] [facility] [id number] [place] [address]- 7084 Oct, 2014 [facility] [place] [facility] [address] [facility] [id number] [place] [address]- 5377 Oct, 2014 [facility] [place] [facility] [address] [id number] [place] [address]- 2364 Oct, 2014 [facility] [place] [facility] [address] [facility] [id number] [place] [address]- 6309 Oct, 2014 [facility] [place] [facility] [address] [facility] [id number] [place] [address]- 7855 Oct, 2014 [facility] [place] [facility] [address] [facility] [id number] [place] [address]- 2719 Oct, [facility] [place] [facility] [id number] [place] [address]- 3201 Sep, [facility] [place] [facility] [address] [facility] [id number] [place] [address]- 4524 Sep, [facility] [place] [facility] [address] [facility] [id number] [place] [address]- 0394 Sep, [facility] [place] [facility] [address] [facility] [id number], [place] [address]- 8982 Sep, [facility] [place] [facility] [address] [facility] [id number] [place] [address]- 4226 Sep, [facility] [place] [facility] [address] [facility] [id number] [place] [address]- 8255 Sep, [facility] [place] [facility] [address] [facility] [id number], [place] [address]- 6039 Sep, [facility] [place] [facility] [address] [id number] [place] [address]- 0271 Sep, [facility] [place] [facility] [address] [id number] [place] [address]- 1438 Sep, [facility] [place] [facility] [address] [id number] [place] [address]- 9031 Sep, [facility] [place] [facility] [address] [id number] [place] [address]- 3479 Sep, [facility] [place] [facility] [address] [id number] [place] [address]- 8281 Sep, [facility] [place] [facility] [address] [id number] [place] [address]- 7143 Sep, [facility] [place] [facility] [address] [id number] [place] [address]- 5103 Sep, [facility] [place] [facility] [address] [id number] [place] [address]- 0415 Sep, [facility] [place] [facility] [address] [id number] [place] [address]- 2898 Sep, [facility] [place] [facility] [address] [id number] [place] [address]- 5496 Aug, [facility] [place] [facility] [address] [id number] [place] [address]- 0479 Aug, [facility] [place] [facility] [address] [id number], [place] [address]- 7692 Aug, [facility] [place] [facility] [address] [id number] [place] [address]- 7526 Aug, [facility] [place] [facility] [address] [id number] [place] [address]- 2229 Aug, [facility] [place] [facility] [address] [id number] [place] [address]- 4921 Aug, [facility] [place] [facility] [address] [id number] [place] [address]- 4207 Aug, [facility] [address] [id number] [place] [address]- 8129 Aug, [facility] [address] [id number] [place] [address]- 9989 Aug, [facility] [address] [id number] [place] [address]- 2776 Aug, [facility] [address] [id number] [place] [address]- 0418 Aug, [facility] [address] [place] [id number] Aug, [facility] [address] [id number] [place] [address]- 7545 Aug, [facility] [address] [id number] [place] [address]- 4783 Aug, [facility] [address] [id number] [place] [address]- 8542 Aug, [facility] [address] [id number] [place] [address]- 4992 Aug, [facility] [address] [id number] [place] [address]- 8457 Aug, [facility] [address] [id number] [place] [address]- 9898 Aug, [facility] [place] [facility] [address] [id number] [place] [address]- 4247 Aug, [facility] [place] [facility] [address] [id number] [place] [address]- 0092 Aug, [facility] [address] [id number] [place] [address]- 8434 Aug, [facility] [address] [id number] [place] [address]- 1443 Aug, [facility] [address] [id number] [place] [address]- 7677 03 Aug, 2014 [facility] [place] [facility] [address] [id number] [place] [address]- 2713 Aug, [facility] [place] [facility] [address] [id number] [place] 1424 Aug, [facility] [place] [facility] [address] [id number] [place] 7415 Aug, [facility] [place] [facility] [address] [id number] [place] [address]- 5140 Aug, [facility] [place] [facility] [address] [id number] [place] [address]- 1413 Aug, [facility] [place] [facility] [address] [id number] [place] [address]- 2794 Aug, [facility] [place] [facility] [address] [id number] [place] [address]- 2233 Aug, [facility] [place] [facility] [address] [id number] [place] [address]- 5128 Jul, [facility] [place] [facility] [address] [id number] [place] [address]- 1788 Jul, [facility] [place] [facility] [address] [facility] [id number] [place] [address]- 3429 Jul, [facility] [place] [facility] [address] [id number] [place] [address]- 0351 Jul, [facility] [place] [facility] [address] [id number] [place] [address]- 1396 Jul, [facility] [place] [facility] [address] [id number] [place] [address]- 0690 Jul, [facility] [place] [facility] [address] [id number] [place] [address]- 2091 Jul, [facility] [place] [facility] [address] [id number] [place] [address]- 6098 Jul, [facility] [place] [facility] [address] [id number] [place] [address]- 9372 Jul, [facility] [place] [facility] [address] [id number] [place] [address]- 8210 Jul, [facility] [place] [facility] [address] [id number] [place] [address]- 8437 Jun, [facility] [place] [facility] [address] [id number] [place] [address]- 9741 Jun, [facility] [place] [facility] [address] [id number] [place] [address]- 6645 Jun, [facility] [place] [facility] [address] [id number] [place] [address]- 0018 Jun, [facility] [place] [facility] [address] [id number] [place] [address]- 6033 Jun, [facility] [place] [facility] [address] [id number] [place] [address]- 4049 Jun, [facility] [place] [facility] [address] [id number] [place] [address]- 7319 Jun, [facility] [place] [facility] [address] [id number] [place] [address]- 3731 Jun, [facility] [place] [facility] [address] [id number] [place] [address]- 5056 Jun, [facility] [place] [facility] [address] [id number] [place] [address]- 0859 Jun, [facility] [place] [facility] [address] [id number] [place] [address]- 7810 May, [facility] [place] [facility] [address] [id number] [place] [address]- 6928 29 May, 2014 [facility] [place] [facility] [address] [id number] [place] [address]- 9313 May, [facility] [place] [facility] [address] [id number] [place] [address]- 2940 26 May, 2013 [facility] [place] [facility] [address] [id number] [place] [address] 2546 17 May, 2013 [facility] [place] [facility] [address] [id number] [place] [address] 2546 17 May, 2013 [facility] [place] [facility] [address] [id number] [place] [address] 2546 15 May, 2013 [facility] [place] [facility] [address] [id number] [place] [address] 2546 15 May, 2013 [facility] [place] [facility] [address] [id number] [place] [address] 2544 15 May, 2013 [facility] [place] [facility] [address] [id number] [place] [address] 15 May, 2013 [facility] [place] [facility] [address] [id number] [place] [address]58 10 May, 2013 [facility] [place] [facility] [address] [id number] [place] [address] 10 May, 2013 [facility] [place] [facility] [address] [id number] [place] [address] 2545 09 May, 2013 [facility] [place] [facility] [address] [id number] [place] [address]40 09 May, 2013 [facility] [place] [facility] [address] [id number] [place] [address] 254 04 May, 2013 [facility] [place] [facility] [address] [id number] [place] [address] May, 2013 [facility] [place] [facility] [address] [id number] [place] [address] Apr, [facility] [place] [facility] [address] [id number] [place] [address] Apr, [facility] [place] [facility] [address] [id number] [place] [address] Apr, [facility] [place] [facility] [address] [id number] [place] [address] Apr, [facility] [place] [facility] [address] [id number] [place] [address] Apr, [facility] [place] [facility] [address] [id number] [place] [address] Apr, [facility] [place] [facility] [address] [id number] [place] [address] Apr, [facility] [place] [facility] [address] [id number] [place] [address] Apr, [facility] [place] [facility] [address] [id number] [place] [address] Apr, [facility] [place] [facility] [address] [id number] [place] [address] 6973 Apr, [facility] [place] [facility] [address] [id number] [place] [address]- 365[address] Apr, [facility] [place] [facility] [address] [id number] [place] [address]- 1119 Apr, [facility] [place] [facility] [address] [id number] [place] [address]- 9289 Apr, [facility] [place] [facility] [address] [id number] [place] [address] 1989 Apr, [facility] [place] [facility] [address] [id number] [place] [address] Apr, [facility] [place] [facility] [address] [id number] [place] [address] Mar, [facility] [place] [facility] [address] [id number] [place] [address]- [address] Mar, [facility] [place] [facility] [address] [id number] [place] [address] Mar, [facility] [place] [facility] [address] [id number] [place] [address]646 Mar, [facility] [place] [facility] [address] [id number] [place] [address]- 93[address] Mar, 2013 [facility] [place] [facility] [address] [id number] [place] [address] 2614 Mar, 2013 [facility] [place] [facility] [address] [id number] [place] [address] Mar, 2013 [facility] [place] [facility] [address] [id number] [place] [address]- 1433 Mar, 2013 [facility] [place] [facility] [address] [id number] [place] [address]- [address] Mar, 2013 [facility] [place] [facility] [address] [id number] [place] [address]- [address]298 Mar, 2013 [facility] [place] [facility] [address] [id number] [place] [address]- [address]41 Mar, 2013 [facility] [place] [facility] [address] [id number] [place] [address]- [address] Mar, 2013 [facility] [place] [facility] [address] [id number] [place] [address] Mar, 2013 [facility] [place] [facility] [address] [id number] [place] [address]- [address]75 Mar, 2013 [facility] [place] [facility] [address] [id number] [place] [address]- 1599 Mar, 2013 [facility] [place] [facility] [address] [id number] [place] [address] 4263 Mar, 2013 [facility] [place] [facility] [address] [id number] [place] [address]- [address] Mar, 2013 [facility] [place] [facility] [address] [id number] [place] [address]- [address]858 Mar, [facility] [place] [facility] [address] [id number] [place] [address]365 Feb, [facility] [place] [facility] [address] [id number] [address] Feb, [facility] [place] [facility] [address] [id number] [place] [address]- 28[address] Feb, [facility] [place] [facility] [address] [id number] [place] [address]- [address] Feb, [facility] [place] [facility] [address] [id number] [place] [address]- 31[address] Feb, [facility] [place] [facility] [address] [id number] [place] [address]- [address] Feb, [facility] [place] [facility] [address] [id number] [place] [address]- 65[address] Feb, [facility] [place] [facility] [address] [id number] [place] [address]- 4314 Feb, [facility] [place] [facility] [address] [id number] [place] [address] Feb, [facility] [place] [facility] [address] [id number] [place] [address]- [address]66 Feb, [facility] [place] [facility] [address] [address] [id number] [place] [address] Feb, [facility] [place] [facility] [address] [id number] [place] [address] 7380 Feb, [facility] [place] [facility] [address] [id number] [place] [address] 4212 Feb, [facility] [place] [facility] [address] [id number] [place] [address] 7693 Feb, [facility] [place] [facility] [address] [id number] [place] [address] 2509 January, [facility] [place] [facility] [address] [id number] [place] [address] 5326 January, [facility] [place] [facility] [address] [id number] [place] [address]- 8146 January, [facility] [place] [facility] [address] [id number] [place] [address] 6674 January, [facility] [place] [facility] [address] [id number] [place] [address]- 9412 January, [facility] [place] [facility] [address] [id number] [place] [address]- 0956 January, [facility] [place] [facility] [address] [id number] [place] [address]- 4815 January, [facility] [place] [facility] [address] [id number] [place] [address] 9567 January, [facility] [place] [facility] [address] [id number] [place] [address]- 2444 January, [facility] [place] [facility] [address] [id number] [place] [address] 3575 January, [facility] [place] [facility] [address] [id number] [place] [address]- 7814 January, [facility] [place] [facility] [address] [id number] [place] [address]- 0697 January, [facility] [place] [facility] [address] [id number] [place] [address]- 2280 January, [facility] [place] [facility] [address] [id number] [place] [address]- 4959 January, [facility] [place] [facility] [address] [id number] [place] [address]- 5141 Dec, [facility] [place] [facility] [address] [id number] [place] [address]- 2888 Dec, [facility] [place] [facility] [address] [id number] [place] [address]- 8434 Dec, [facility] [place] [facility] [address] [id number] [place] [address]- 4560 Dec, [facility] [place] [facility] [address] [id number] [place] [address]- 7873 Dec, [facility] [place] [facility] [address] [id number] [place] [address]- 3452 Dec, [facility] [place] [facility] [address] [id number] [place] [address]- 6458 Dec, [facility] [place] [facility] [address] [id number] [place] [address]- 3249 Dec, [facility] [place] [facility] [address] [id number] [place] [address]- 8515 Dec, [facility] [place] [facility] [address] [id number] [place] [address]- 4921 Dec, [facility] [place] [facility] [address] [id number] [place] [address]- 7989 Nov, [facility] [place] [facility] [address] [id number] [place] [address]- 0998 Nov, [facility] [place] [facility] [address] [id number] [place] [address]- 6755 Nov, [facility] [place] [facility] [address] [id number] [place] [address]- 9034 Nov, [facility] [place] [facility] [address] [id number] [place] [address]- 8037 Nov, [facility] [place] [facility] [address] [id number] [place] [address]- 9815 Nov, [facility] [place] [facility] [address] [id number] [place] [address]- 7456 Nov, [facility] [place] [facility] [address] [id number] [place] [address]- 4432 Nov, [facility] [place] [facility] [address] [id number] [place] [address]- 5608 Nov, [facility] [place] [facility] [address] [id number] [place] [address]- 9021 Nov, [facility] [place] [facility] [address] [id number] [place] [address]- 8917 Oct, [facility] [place] [facility] [address] [id number] [place] [address]- 3598 Oct, [facility] [place] [facility] [address] [id number] [place] [address]- 2546 Oct, [facility] [place] [facility] [address] [id number] [place] [address]- 7075 Oct, [facility] [place] [facility] [address] [id number] [place] [address]- 7997 Oct, [facility] [place] [facility] [address] [id number] [place] [address]- 1598 Oct, [facility] [place] [facility] [address] [facility] [id number] [place] [address]- 8946 Oct, [facility] [place] [facility] [address] [facility] [id number] [place] [address]- 8944 Oct, [facility] [place] [facility] [address] [facility] [id number] [place] [address]- 4097 Oct, [facility] [place] [facility] [address] [facility] [id number] [place] [address]- 8747 Oct, [facility] [place] [facility] [address] [facility] [id number] [place] [address]- 7931 Oct, [facility] [place] [facility] [address] [facility] [id number], [place] [address]- 9225 Oct, [facility] [place] [facility] [address] [facility] [id number] [place] [address]- 5683 Oct, [facility] [place] [facility] [address] [facility] [id number] [place] [address]- 1691 Oct, [facility] [place] [facility] [address] [facility] [id number] [place] [address]- 1832 Sep, [facility] [place] [facility] [address] [facility] [id number], [place] [address]- 9602 Sep, [facility] [address] [id number] [place] [address]- 4815 15 Sep, 2013 [facility] [place] [facility] [address] [id number] [place] [address]- 3088 15 Sep, 2013 [facility] [place] [facility] [address] [id number] [place] [address]- 6068 Sep, [facility] [place] [facility] [address] [id number] [place] [address]- 0274 Sep, [facility] [place] [facility] [address] [id number] [place] [address]- 2824 Sep, [facility] [place] [facility] [address] [id number] [place] [address]- 6841 Sep, [facility] [place] [facility] [address] [id number] [place] [address]- 1464 Sep, [facility] [place] [facility] [address] [id number] [place] [address]- 2947 Sep, [facility] [place] [facility] [address] [id number] [place] [address]- 7750 Aug, [facility] [place] [facility] [address] [id number] [place] [address]- 5289 Aug, [facility] [place] [facility] [address] [id number] [place] [address]- 8376 Jul, [facility] [place] [facility] [address] [id number] [place] [address]- 3025 Jul, [facility] [place] [facility] [address] [id number] [place] [address]- 2631 Jul, [facility] [place] [facility] [address] [id number] [place] [address]- 0541 Jul, [facility] [place] [facility] [address] [id number] [place] [address]- 7720 Jul, [facility] [place] [facility] [address] [id number] [place] [address]- 9984 13 Jul, 2013 [facility] [place] [facility] [address] [id number] [place] [address]- 8910 Jul, [facility] [place] [facility] [address] [id number] [place] [address]- 2288 Jul, [facility] [place] [facility] [address] [id number] [place] [address]- 4044 Jul, [facility] [place] [facility] [address] [id number] [place] [address]- 5763 Jul, [facility] [place] [facility] [address] [id number] [place] [address]- 2189 Jul, [facility] [place] [facility] [address] [id number] [place] [address]- 1780 Jul, [facility] [place] [facility] [address] [id number] [place] [address]- 9579 Jul, [facility] [place] [facility] [address] [id number] [place] [address]- 6662 Jul, [facility] [place] [facility] [address] [id number] [place] [address]- 1537 Jul, [facility] [place] [facility] [address] [id number] [place] [address]- 7969 Jul, [facility] [place] [facility] [address] [id number] [place] [address]- 8246 Jul, [facility] [place] [facility] [address] [id number] [place] [address]- 7033 Jul, [facility] [place] [facility] [address] [id number] [place] [address]- 5752 Jul, [facility] [place] [facility] [address] [id number] [place] [address]- 2936 Jun, [facility] [place] [facility] [address] [id number] [place] [address]- 7934 Jun, [facility] [place] [facility] [address] [id number] [place] [address]- 1663 16 Jun, 2012 [facility] [place] [facility] [address] [id number] [place] [address]- 7184 16 Jun, 2012 [facility] [place] [facility] [address] [id number] [place] [address]- 0504 16 Jun, 2012 [facility] [place] [facility] [address] [id number] [place] [address]- 1784 16 Jun, 2012 [facility] [place] [facility] [address] [id number] [place] [address]- 4160 10 Jun, 2012 [facility] [place] [facility] [address] [id number] [place] [address]- 4337 10 Jun, 2013 [facility] [place] [facility] [address] [id number] [place] [address]- 3680 Jun, [facility] [place] [facility] [address] [id number], [place] [address]- 8588 09 Jun, 2013 [facility] [place] [facility] [address] [id number] [place] [address]- 0305 Jun, [facility] [place] [facility] [address] [id number], [place] [address]- 4436 26 Sep, 2012 [facility] [place] [facility] [address] [id number], [place] [address]- 9628 25 Sep, 2012 [facility] [place] [facility] [address] [id number], [place] [address]- 4499 19 Sep, 2012 [facility] [place] [facility] [address] [id number] [place] [address]- 7802 17 Sep, 2012 [facility] [place] [facility] [address] [id number], [place] [address]- 7735 11 Sep, 2012 [facility] [place] [facility] [address] [id number][place] [address]- 8093 10 Sep, 2012 [facility] [place] [facility] [address] [id number] [place] [address]- 9001 May, [facility] [place] [facility] [address] [id number] [place] [address]- 3184 May, [facility] [place] [facility] [address] [id number] [place] [address]- 5315 Apr, [facility] [place] [facility] [address] [id number] [place] [address]- 1166 Apr, [facility] [place] [facility] [address] [id number] [place] [address]- 2357 Apr, [facility] [place] [facility] [address] [id number] [place] [address]- 8501 Apr, [facility] [place] [facility] [address] [id number] [place] [address]- 5686 Apr, [facility] [place] [facility] [address] [id number] [place] [address]- 9566 Mar, [facility] [place] [facility] [address] [id number] [place] [address]- 0696 Mar, [facility] [place] [facility] [address] [id number] [place] [address]- 8039 Mar, [facility] [place] [facility] [address] [id number] [place] [address]- 7381 Mar, [facility] [place] [facility] [address] [id number] [place] [address]- 6956 Mar, [facility] [place] [facility] [address] [id number] [place] [address]- 2260 Mar, [facility] [place] [facility] [address] [id number] [place] [address]- 3269 Mar, [facility] [place] [facility] [address] [id number] [place] [address]- 0836 Mar, [facility] [place] [facility] [address] [id number] [place] [address]- 7622 Feb, [facility] [place] [facility] [address] [id number] [place] [address]- 4153 Feb, [facility] [place] [facility] [address] [id number] [place] [address]- 9501 January, [facility] [place] [facility] [address] [id number] [place] [address]- 9030 January, [facility] [place] [facility] [address] [id number] [place] [address]- 9696 Dec, [facility] [place] [facility] [address] [id number] [place] [address]- 1154 Dec, [facility] [place] [facility] [address] [id number] [place] [address]- 6274 Nov, [facility] [address] [facility] [id number] [place] [address]- 2619 Nov, [facility] [place] [facility] [address] [id number] [place] [address]- 3296 Nov, [facility] [place] [facility] [address] [id number] [place] [address]- 6834 Nov, [facility] [place] [facility] [address] [id number] [place] [address]- 7379 Oct, [facility] [place] [facility] [address] [facility] [id number] [place] [address]- 8810 Oct, [facility] [place] [facility] [address] [id number], [place] [address]- 3900 Oct, [facility] [place] [facility] [address] [id number] [place] [address]- 5242 Oct, [facility] [place] [facility] [address] [id number] [place] [address]- 0849 16 Oct, 2012 [facility] [place] [facility] [address] [id number] [place] [address]- 0329 14 Oct, 2012 [facility] [place] [facility] [address] [id number], [place] [address]- 7729 08 Oct, 2012 [facility] [address] [id number] [place] [address]- 8296 07 Oct, 2012 [facility] [address] [id number] [place] [address]- 0691 03 Oct, 2012 [facility] [address] [id number] [place] [address]- 8589 30 Sep, 2012 [facility] [address] [id number] [place] [address]- 2443 29 Sep, 2012 [facility] [address] [id number] [place] [address]- 5685 Sep, [facility] [address] [id number] [place] [address]- 2562 Sep, [facility] [address] [id number] [place] [address]- 9001 17 Sep, 2012 [facility] [address] [id number] [place] [address]- 5718 Sep, [facility] [address] [id number] [place] [address]- 3819 Sep, [facility] [address] [id number] [place] [address]- 9014 08 Sep, 2012 [facility] [address] [id number] [place] [address]- 0704 Aug, [facility] [address] [id number] [place] [address]- 1043 Aug, [facility] [address] [id number] [place] [address]- 3929 Aug, [facility] [address] [id number] [place] [address]- 2042 Aug, [facility] [address] [id number] [place] [address]- 9338 Aug, [facility] [place] [facility] [address] [id number] [place] [address]- 5015 Aug, [facility] [place] [facility] [address] [id number] [place] [address]- 4770 Aug, [facility] [place] [facility] [address] [id number] [place] [address]- 5328 Aug, [facility] [place] [facility] [address] [id number] [place] [address], [place] [address]- 1399 Jul, [facility] [place] [facility] [address] [id number] [place] [address]- 1748 Jul, [facility] [place] [facility] [address] [id number] [place] [address]- 9115 Jul, [facility] [place] [facility] [address] [id number] [place] [address]- 4271 Jul, [facility] [place] [facility] [address] [id number] [place] [address]- 0016 Jul, [facility] [place] [facility] [address] [id number] [place] [address]- 6377 Jul, [facility] [place] [facility] [address] [id number] [place] [address]- 1287 Jun, [facility] [place] [facility] [address] [id number] [place] [address]- 4681 Jun, [facility] [place] [facility] [address] [id number], [place] [address]- 5198 Jun, [facility] [place] [facility] [address] [id number] [place] [address]- 0836 Jun, [facility] [place] [facility] [address] [id number] [place] [address]- 2920 Jun, [facility] [place] [facility] [address] [id number] [place] [address]- 4847 Jun, [facility] [place] [facility] [address] [id number] [place] [address]- 8256 Jun, [facility] [place] [facility] [address] [id number] [place] [address]- 4650 10 Jun, 2012 [facility] [place] [facility] [address] [id number] [place] [address]- 7042 Jun, [facility] [place] [facility] [address] [id number] [place] [address]- 7626 26 May, 2012 [facility] [place] [facility] [address] [id number] [place] [address]- 7864 24 May, 2012 [facility] [place] [facility] [address] [id number] [place] [address]- 5740 May, [facility] [place] [facility] [address] [id number] [place] [address]- 3272 Apr, [facility] [place] [facility] [address] [id number] [place] [address]- 6022 Apr, [facility] [place] [facility] [address] [id number] [place] [address]- 8287 Apr, [facility] [place] [facility] [address] [id number] [place] [address]- 3695 Apr, [facility] [place] [facility] [address] [id number] [place] [address]- 4641 Apr, [facility] [place] [facility] [address] [id number] [place] [address]- 5980 Apr, [facility] [place] [facility] [address] [id number] [place] [address] Mar, [facility] [place] [facility] [address] [id number] [place] [address] Mar, [facility] [place] [facility] [address] [id number] [place] [address] Mar, [facility] [place] [facility] [address] [id number] [place] [address] Mar, [facility] [place] [facility] [address] [id number] [place] [address] Feb, [facility] [address] [id number] [place] [address] Feb, [facility] [address] [id number] [place] [address] Feb, [facility] [address] [id number] [place] [address] Feb, [facility] [address] [id number] [place] [address] Feb, [facility] [address] [id number] [place] [address] January, [facility] [address] [id number] [place] [address] January, [facility] [address] [id number] [place] [address]237 January, [facility] [address] [id number] [place] [address]358 January, [facility] [address] [id number] [place] [address] 8799 January, [facility] [address] [id number] [place] [address] January, [facility] [address] [id number] [place] [address] Dec, [facility] [address] [id number] [place] [address] Dec, [facility] [place] [facility] [address] [id number] [place] [address]6 Dec, [facility] [address] [id number] [place] [address]- [address] Dec, [facility] [address] [id number] [place] [address] 9284 Dec, [facility] [address] [id number] [place] [address] 27 Nov, 2011 [facility] [place] [facility] [address] [id number] [place] [address]- [address] 14 Nov, 2011 [facility] [place] [facility] [address] [id number] [place] [address]- [address]6 12 Nov, 2011 [facility] [place] [facility] [address] [id number] [place] [address]- [address]16 07 Nov, 2011 [facility] [place] [facility] [address] [id number] [place] [address] 29 Oct, 2011 [facility] [place] [facility] [address] [id number] [place] [address] 28 Oct, 2011 [facility] [place] [facility] [address] [id number] [place] [address]- [address]366 24 Oct, 2011 [facility] [place] [facility] [address] [id number] [place] [address]- [address]852 13 Oct, 2011 [facility] [place] [facility] [address] [id number] [place] [address]- 9833 08 Oct, 2011 [facility] [place] [facility] [address] [id number] [place] [address]696 Sep, [facility] [place] [facility] [address] [id number] [place] [address] 4916 Sep, [facility] [place] [facility] [address] [id number] [place] [address]406 Sep, [facility] [place] [facility] [address] [id number] [place] [address] 8472 Sep, [facility] [place] [facility] [address] [id number] [place] [address]- 3796 Sep, [facility] [place] [facility] [address] [id number] [place] [address]- 5766 Sep, [facility] [place] [facility] [address] [id number] [place] [address] 8403 Aug, [facility] [place] [facility] [address] [id number] [place] [address] Aug, [facility] [place] [facility] [address] [id number] [place] [address] Aug, [facility] [place] [facility] [address] [id number] [place] [address]- 7065 Jul, [facility] [place] [facility] [address] [id number] [place] [address] 8953 Jul, [facility] [place] [facility] [address] [id number] [place] [address]- 1231 Jul, [facility] [place] [facility] [address] [id number] [place] [address]- 6462 Jul, [facility] [place] [facility] [address] [id number] [place] [address]- 1569 Jun, [facility] [place] [facility] [address] [id number] [place] [address]- [address]140 Jun, [facility] [place] [facility] [address] [id number] [place] [address]- 8228 Jun, [facility] [place] [facility] [address] [facility] [id number] [place] [address]- 9149 Jun, [facility] [place] [facility] [address] [id number] [place] [address]- 1389 Jun, [facility] [place] [facility] [address] [id number] [place] [address]- 3264 Jun, [facility] [place] [facility] [address] [id number] [place] [address]- 0880 Mar, [facility] [place] [facility] [address] [id number] [place] [address]- [address]884 Dec, [facility] [place] [facility] [address] [id number] [place] [address]- 6294 Dec, [facility] [place] [facility] [address] [id number] [place] [address]687 18 Nov, 2010 [facility] [address] [id number] [place] [address]- 1526 16 Nov, 2010 [facility] [address] [id number] [place] [address]- 6327 10 Sep, 2010 [facility] [address] [id number] [place] [address]- [address]226 31 Aug, 2010 [facility] [address] [id number] [place] [address]- [address]21 29 Aug, 2010 [facility] [address] [id number] [place] [address]- 4168 Aug, [facility] [address] [id number] [place] [address]- 2881 Aug, [facility] [address] [id number] [place] [address]- 4758 Aug, [facility] [address] [id number] [place] [address]- 2309 14 Aug, 2010 [facility] [address] [id number] [place] [address]- 0269 Aug, [facility] [address] [id number] [place] [address]- 1873 08 Aug, 2010 [facility] [address] [id number] [place] [address]- 2091 07 Aug, 2010 [facility] [address] [id number] [place] [address]- 3123 Aug, [facility] [place] [facility] [address] [id number] [place] [address]- 2546 Aug, [facility] [address] [id number] [place] [address]- 5125 Aug, [facility] [address] [id number] [place] [address]- 4[address] Jul, [facility] [place] [facility] [address] [id number] [place] [address]- 6692 Jul, [facility] [place] [facility] [address] [id number] [place] [address]- 7676 30 Jul, 2010 [facility] [place] [facility] [address] [id number] [place] [address]- 3263 Jul, [facility] [facility] [address] [id number] [place] [address] Jul, [facility] [place] [facility] [address] [id number] [place] [address] Jul, [facility] [place] [facility] [address] [id number] [place] [address] 24 Jun, 2010 [facility] [place] [facility] [address] [id number] [place] [address] Jun, [facility] [place] [facility] [address] [id number] [place] [address] Jun, [facility] [place] [facility] [address] [id number] [place] [address] Jun, [facility] [place] [facility] [address] [id number] [place] [address] Apr, [facility] [facility] [address] [id number], [place] [address] Mar, [facility] [place] [facility] [address] [id number] [place] [address] Feb, [facility] [place] [facility] [address] [id number] [place] [address] January, [facility] [place] [facility] [address] [id number] [place] [address] 15 Dec, 2009 [facility] [place] [facility] [address] [id number] [place] [address] Nov, [facility] [place] [facility] [address] [id number] [place] [address] 31 Aug, 2009 [facility] [address] [id number] [place] [address] Aug, [facility] [place] [facility] [address] [id number] [place] [address] Aug, [facility] [address] [id number] [place] [address] Jul, [facility] [place] [facility] [address] [id number] [place] [address] Jul, [facility] [address] [id number] [place] [address] Jul, [facility] [address] [facility] [id number] [place] [address] Jun, [facility] [facility] [address] [id number] [place] [address] Jun, [facility] [address] [id number] [place] [address] Jun, [facility] [address] [facility] [id number] [place] [address] Jun, [facility] [address] [facility] [id number], [place] [address] Jun, [facility] [address] [id number], [place] [address] Jun, [facility] [address] [id number], [place] [address] Apr, [facility] [address] [id number] [place] [address] Apr, [facility] [address] [facility] [id number], [place] [address] Feb, [facility] [facility] [address] [id number], [place] [address] January, [facility] [place] [address] [facility] [id number] [place] [id number] Dec, IMMUNIZATIONS No Known Immunizations SOCIAL HISTORY Never Assessed REASON FOR VISIT Refill request PLAN OF CARE VITAL SIGNS MEDICATIONS Medication Instructions Dosage Frequency Start Date End Date Duration Status Singulair 10 mg Orally Once a day 1 Tablet by Oral route 1 time per day 24h Nov, 90 days Active RESULTS No Results PROCEDURES No [...] obesity Medical History skin cancer-basal cell R rastafarian (removed) Medical History Arthritis Medical History degenerative [...] tunnel release (Left) 2000 Surgical History EGD ([facility]) 2009 Surgical History colonoscopy 2009 ([facility]), 2013 ([place]) Surgical History heart 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 04/2014 Surgical History carotid US 05/2014 Surgical History resection of skin cancer from Right rastafarian Surgical History Biopsy of Lung Bilateral/Left lung lymph node 09/2016 Surgical History Bone Marrow Biopsy Surgical History port in the right chest wall 12/2016 Hospitalization History [facility] low potassium, low magnesium, chest painina 01/2015 Hospitalization History inability to urinate 09/16/15 Hospitalization History [facility] early Hospitalization History hyperkalemia 10/2017 Hospitalization History fluid in lung
--- OUTSIDE RECORDS SUMMARY | 2018-08-08 13:05 | XMS REPORT ---
Author Author NOEMI WASHBURN Organization [facility] Address [address] [place] [address] Care Team Providers Care Coil Assembler Name Role Phone NOEMI WASHBURN Unavailable PROBLEMS Type Condition ICD9-CM Code ZRQ42-[id number] Code Onset Dates Condition Status SNOMED Code Problem Chronic lymphocytic leukemia C91.10 Active 39996060 Problem Insomnia, unspecified type G47.00 Active 439459054 Problem Lymphocytosis D72.820 Active 30495051 Problem Anxiety F41.9 Active 29789228 Problem Eye exam abnormal R93.8 Active 047924004 Problem Morbid obesity E66.01 Active 708077771 Problem Diabetic polyneuropathy associated with type 2 diabetes mellitus E11.42 Active 66258985 Problem Essential hypertension I10 Active 26412872 Problem Falling R29.6 Active 302030010 Problem 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 Active 267383925 Problem Cough R05 Active 37597460 Problem Dysuria R30.0 Active 91588916 Problem Eustachian tube dysfunction, unspecified laterality H69.80 Active 77748124 Problem Bilateral primary osteoarthritis of knee M17.0 Active 687233409 Problem Polyneuropathy associated with underlying disease G63 Active 521098449 Problem Anemia of chronic illness D63.8 Active 844351010 Problem Retinal edema H35.81 Active 3132451 Problem DM neuro manif type II E11.49 Active 85709260 Problem Diabetes E11.9 Active 18774834 Problem Hypokalemia E87.6 Active 14923297 Problem Benign prostatic hyperplasia with lower urinary tract symptoms, unspecified morphology N40.1 Active 271426774 Problem Reactive airway disease J45.909 Active 440963210478 Problem Bipolar I disorder, most recent episode (or current) mixed, moderate F31.62 Active 35871020 Problem Chronic pain G89.29 Active 10609119 Problem Leukocytosis D72.829 Active 581433283 ALLERGIES No Information ENCOUNTERS Encounter Location Date Diagnosis [facility] [address], [place] [address] Dec, [facility] [id number] [place] [address] 90597- 4026 Dec, [facility] [id number] [place] [address] 66972- 0974 Dec, [facility] [id number] [place] [address] 69427- 2243 Nov, Bipolar I disorder, most recent episode (or current) mixed, moderate F31.62 [facility] [id number] [place] [address] 43942- 4184 Nov, Chronic pain G89.29 [facility] [id number] [place] [address] 98092- 1027 Nov, Bipolar I disorder, most recent episode (or current) mixed, moderate F31.62 [facility] [id number] [place] [address] 79814- 0792 Nov, Hypokalemia E87.6 [facility] [id number] [place] [address] 63746- 7785 Nov, Bipolar I disorder, most recent episode (or current) mixed, moderate F31.62 [facility] [id number] [place] [address] 49337- 8403 Oct, Chronic pain G89.29 [facility] [id number] [place] [address] 05083- 3036 Oct, BMI 50.0-59.9, adult Z68.43 and Bipolar I disorder, most recent episode (or current) mixed, moderate F31.62 [facility] [id number] [place] [address] 45170- 4037 Oct, Bipolar I disorder, most recent episode (or current) mixed, moderate F31.62 [facility] [id number] [place] [address] 84769- 8606 Oct, [facility] [id number] [place] [address] 47317- 2682 Oct, Hypokalemia E87.6 [facility] [id number] [place] [address] 40852- 9518 Oct, DM neuro manif type II E11.49 [facility] [id number] [place] [address] 02556- 5215 Oct, Bipolar I disorder, most recent episode (or current) mixed, moderate F31.62 [facility] [address] 71716- 5885 Oct, Bipolar I disorder, most recent episode (or current) mixed, moderate F31.62 [facility] [id number] [place] [address] 93296- 0469 Oct, Hyperkalemia E87.5 ; Falling R29.6 ; BMI 50.0-59.9, adult Z68.43 and Acute left ankle pain M25.572 [facility] [id number] [place] [address] 31050- 5105 Oct, DM neuro manif type II E11.49 [facility] [id number] [place] [address] 97463- 4221 Oct, [facility] [id number] [place] [address] 47185- 4058 Sep, Chronic pain G89.29 [facility] [id number] [place] [address] 24562- 9872 Sep, [facility] [address] 89717- 4703 Sep, Bilateral primary osteoarthritis of knee M17.0 [facility] [id number] [place] [address] 29521- 4144 Sep, Generalized edema R60.1 [facility] [address] [place] [address]- 2351 16 Sep, 2017 Bipolar I disorder, most recent episode (or current) mixed, moderate F31.62 [facility] [id number] [place] [address] 73160- 2120 15 Sep, 2017 Hypoxia R09.02 ; Other hypervolemia E87.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 ; Anemia of chronic illness D63.8 and BMI 50.0- 59.9, adult Z68.43 [facility] [address] 54058- 8187 Sep, [facility] [address] 74101- 4213 Sep, Bipolar I disorder, most recent episode (or current) mixed, moderate F31.62 [facility] [address] 53210- 2622 Aug, Chronic pain G89.29 [facility] [address] 04374- 6052 Aug, Generalized edema R60.1 [facility] [address] 09684- 5388 Aug, [facility] [id number] [place] [address] 82629- 0678 Aug, [facility] [address] 25073- 0034 14 Aug, 2017 Bipolar I disorder, most recent episode (or current) mixed, moderate F31.62 [facility] [address] 00343- 1955 07 Aug, 2017 Bipolar I disorder, most recent episode (or current) mixed, moderate F31.62 [facility] [id number] [place] [address] 34092- 2057 Aug, Chronic pain G89.29 [facility] [address], [place] [address]- 4860 Jul, Bipolar I disorder, most recent episode (or current) mixed, moderate F31.62 [facility] [address], [place] [address]- 2201 Jul, Bipolar I disorder, most recent episode (or current) mixed, moderate F31.62 and BMI 60.0-69.9, adult Z68.44 [facility] [id number] [place] [address] 54080- 7598 Jul, Bipolar I disorder, most recent episode (or current) mixed, moderate F31.62 [facility] [id number] [place] [address] 60945- 5247 Jul, Chronic pain G89.29 [facility] [id number] [place] [address] 16397- 3408 Jul, Bipolar I disorder, most recent episode (or current) mixed, moderate F31.62 [facility] [id number] [place] [address] 89090- 2390 Jun, Polyneuropathy associated with underlying disease G63 and Diabetes E11.9 [facility] [address] [place] [address] 55695- 8088 Jun, Bipolar I disorder, most recent episode (or current) mixed, moderate F31.62 [facility] [address] [place] [address] 10752- 2811 Jun, Chronic pain G89.29 [facility] [address], [place] [address]- 5371 May, Bipolar I disorder, most recent episode (or current) mixed, moderate F31.62 [facility] [address], [place] [address]- 4743 May, Bipolar I disorder, most recent episode (or current) mixed, moderate F31.62 [facility] [id number] [place] [address] 41368- 1675 20 May, 2017 Diabetic polyneuropathy associated with type 2 diabetes mellitus E11.42 [facility] [id number] [place] [address] 32318- 2839 18 May, 2017 Bipolar I disorder, most recent episode (or current) mixed, moderate F31.62 [facility] [id number] [place] [address] 89491- 3991 13 May, 2017 Bipolar I disorder, most recent episode (or current) mixed, moderate F31.62 [facility] [id number] [place] [address] 14018- 9779 12 May, 2017 Chronic pain G89.29 [facility] [id number] [place] [address] 32206- 0787 30 Apr, 2017 Bipolar I disorder, most recent episode (or current) mixed, moderate F31.62 [facility] [id number] [place] [address] 69396- 2885 Apr, [facility] [id number] [place] [address] 11429- 1308 Apr, Chronic pain G89.29 and DM neuro manif type II E11.49 [facility] [id number] [place] [address] 54867- 6896 Apr, [facility] [id number] [place] [address] 67968- 8089 Apr, Bipolar I disorder, most recent episode (or current) mixed, moderate F31.62 [facility] [id number] [place] [address] 64088- 5437 14 Apr, 2017 Chronic pain G89.29 [facility] [id number] [place] [address] 59609- 3282 Apr, Iliotibial band syndrome, left M76.32 [facility] [id number] [place] [address] 28148- 6597 Apr, Bipolar I disorder, most recent episode (or current) mixed, moderate F31.62 [facility] [address] [place] [address] 41703- 8445 Mar, Bipolar I disorder, most recent episode (or current) mixed, moderate F31.62 [facility] [id number] [place] [address] 76366- 2104 Mar, Bipolar I disorder, most recent episode (or current) mixed, moderate F31.62 [facility] [id number] [place] [address] 72217- 1410 Mar, [facility] [id number] [place] [address] 24172- 2168 Mar, Bipolar I disorder, most recent episode (or current) mixed, moderate F31.62 [facility] [id number] [place] [address] 20332- 3986 Mar, Chronic pain G89.29 [facility] [id number] [place] [address] 15805- 2114 Mar, Bipolar I disorder, most recent episode (or current) mixed, moderate F31.62 [facility] [id number] [place] [address] 97838- 2310 Mar, Bipolar I disorder, most recent episode (or current) mixed, moderate F31.62 [facility] [address] [place] [address] 03524- 6643 Mar, Acute pain of left knee M25.562 ; Left hip pain M25.552 ; Generalized edema R60.1 and Tongue swelling R22.0 [facility] [id number] [place] [address] 78374- 6109 Mar, [facility] [id number] [place] [address] 45679- 9610 Feb, Chronic pain G89.29 [facility] [id number] [place] [address] 11268- 1493 Feb, Diabetes E11.9 [facility] [address], [place] [address]- 3060 January, Chronic pain G89.29 [facility] [address], [place] [address]- 5494 January, [facility] [address], [place] [address]- 1523 January, Bipolar I disorder, most recent episode (or current) mixed, moderate F31.62 [facility] [address] [place] [address] 32903- 1974 Dec, Bipolar I disorder, most recent episode (or current) mixed, moderate F31.62 [facility] [address], [place] [address]- 5185 Dec, Chronic pain G89.29 [facility] [id number] [place] [address] 39162- 7953 Dec, Bipolar I disorder, most recent episode (or current) mixed, moderate F31.62 [facility] [address] [place] [address] 59238- 7351 Dec, Diabetes E11.9 ; Essential hypertension I10 ; Chronic pain G89.29 and Morbid obesity E66.01 [facility] [address], [place] [address]- 4508 Dec, [facility] [id number] [place] [address] 59210- 2566 Dec, Bipolar I disorder, most recent episode (or current) mixed, moderate F31.62 [facility] [address], [place] [address]- 1326 Dec, Bipolar I disorder, most recent episode (or current) mixed, moderate F31.62 [facility] [address], [place] [address]- 0388 Nov, Chronic pain G89.29 [facility] [id number] [address]- 7669 Nov, Bipolar I disorder, most recent episode (or current) mixed, moderate F31.62 [facility] [address], [place] [address]- 3096 Nov, [facility] [address], [place] [address]- 8529 Nov, Bipolar I disorder, most recent episode (or current) mixed, moderate F31.62 [facility] [address], [place] [address]- 8966 Nov, Bipolar I disorder, most recent episode (or current) mixed, moderate F31.62 [facility] [address], [place] [address]- 2297 Nov, [facility] [id number] [place] [address] 72658- 5125 Nov, [facility] [address], [place] [address]- 0096 Nov, [facility] [address] [place] [address] 58069- 4362 Oct, Chronic pain G89.29 [facility] [address], [place] [address]- 5914 Oct, Bipolar I disorder, most recent episode (or current) mixed, moderate F31.62 [facility] [address], [place] [address]- 2871 Oct, [facility] [address], [place] [address]- 6660 Oct, Chronic pain G89.29 ; Diabetes E11.9 ; Anxiety F41.9 and 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 [facility] [address], [place] [address]- 8306 Oct, [facility] [id number] [address]- 6536 Oct, Diabetes E11.9 [facility] [id number] [place] [address] 96351- 9826 Oct, Bipolar I disorder, most recent episode (or current) mixed, moderate F31.62 [facility] [id number] [place] [address] 59329- 1226 Sep, Chronic pain G89.29 [facility] [id number] [place] [address] 02625- 2756 Sep, Chronic pain G89.29 [facility] [id number] [place] [address] 981055- 7526 Aug, Chronic pain G89.29 [facility] [id number] [place] [address] 91508- 8176 Jul, [facility] [id number] [place] [address] 03172- 8675 Jul, Diabetes E11.9 [facility] [id number] [place] [address] 65438- 5060 Jul, Chronic pain G89.29 [facility] [id number] [place] [address] 74439- 0005 Jul, Bipolar I disorder, most recent episode (or current) mixed, moderate F31.62 [facility] [address] [place] [address] 73321- 9438 Jun, Bipolar I disorder, most recent episode (or current) mixed, moderate F31.62 [facility] [id number] [place] [address] 00948- 2616 Jun, [facility] [id number] [place] [address] 61723- 2949 Jun, Bipolar I disorder, most recent episode (or current) mixed, moderate F31.62 [facility] [id number] [place] [address] 54605- 8675 30 May, 2016 Insomnia, unspecified type G47.00 [facility] [id number] [place] [address] 31586- 6457 22 May, 2016 Bipolar I disorder, most recent episode (or current) mixed, moderate F31.62 [facility] [address] 87111- 4146 14 May, 2016 [facility] [address] 944557- 5733 08 May, 2016 Bipolar I disorder, most recent episode (or current) mixed, moderate F31.62 [facility] [address] 843314- 3441 May, Diabetes E11.9 and Essential hypertension I10 [facility] [address] 74272- 4064 Apr, Chronic pain G89.29 [facility] [address] 97653- 5066 Apr, Bipolar I disorder, most recent episode (or current) mixed, moderate F31.62 [facility] [address] 04547- 2371 Apr, [facility] [address] 77958- 2052 Apr, [facility] [address] 16039- 1222 Mar, Chronic pain G89.29 ; Headache, unspecified headache type R51 ; Neuropathy G62.9 ; Pain of right hip joint M25.551 and Essential hypertension I10 [facility] [address] 01620- 0089 Mar, Chronic pain G89.29 [facility] [id number] [place] [address] 05040- 7257 Mar, Bipolar I disorder, most recent episode (or current) mixed, moderate F31.62 [facility] [address] [place] [address] 82826- 2816 Feb, Bipolar I disorder, most recent episode (or current) mixed, moderate F31.62 and Insomnia, unspecified type G47.00 [facility] [id number] [place] [address] 10128- 7717 Feb, Chronic pain G89.29 [facility] [id number] [place] [address] 16019- 8445 Feb, Bipolar I disorder, most recent episode (or current) mixed, moderate F31.62 [facility] [address] 562779- 2724 January, Bipolar I disorder, most recent episode (or current) mixed, moderate F31.62 [facility] [id number] [place] [address] 40477- 9726 January, Chronic pain G89.29 [facility] [id number] [place] [address] 70019- 4134 January, Chronic pain G89.29 and Essential hypertension I10 [facility] [id number] [place] [address] 33173- 8057 January, Bipolar I disorder, most recent episode (or current) mixed, moderate F31.62 [facility] [id number] [place] [address] 40665- 2503 Dec, [facility] [id number] [place] [address] 60846- 3943 Dec, [facility] [id number] [place] [address] 18940- 2522 Dec, [facility] [id number] [place] [address] 64255- 2814 Dec, [facility] [id number] [place] [address] 44407- 4900 Nov, Reactive airway disease J45.909 [facility] [address], [place] [address]- 5680 Nov, [facility] [id number] [place] [address] 77363- 7545 Nov, [facility] [id number] [place] [address] 93014- 1449 30 Nov, 2015 [facility] [address] 03823- 2433 Nov, [facility] [id number] [place] [address] 94509- 3633 Nov, Onychomycosis B35.1 ; Hammertoe M20.40 ; Seibert or callus L84 and DM neuro manif type II E11.49 [facility] [id number] [place] [address] 32574- 0090 Nov, Chronic pain G89.29 ; Leukocytosis D72.829 and Diabetes E11.9 [facility] [id number] [place] [address] 06629- 4307 Nov, [facility] [id number] [place] [address] [phone]- 9652 Oct, Bronchitis J40 [facility] [address] [place] [id number] [place] [address] 23778- 2954 Oct, [place] [address] [place] [id number] [place] [address] 57205- 2208 Oct, [facility] [facility] [address] [place] [id number] [place] [address] 92394- 3555 Oct, Mastoiditis, unspecified laterality H70.90 and Type 2 diabetes mellitus with complication E11.8 [place] [id number] [place] [address] 48671- 7952 Sep, [place] [id number] [place] [address] 19238- 1796 Sep, Dysuria R30.0 ; Cough R05 ; Benign prostatic hyperplasia with lower urinary tract symptoms, unspecified morphology N40.1 ; Hypokalemia E87.6 and Eustachian tube dysfunction, unspecified laterality H69.80 [facility] [id number] [place] [address] 64379- 3583 Sep, Moderate mixed bipolar I disorder F31.62 [facility] [address] 14889- 8022 Sep, Hypokalemia E87.6 [facility] [address] 09745- 0980 Sep, [facility] [address] 81535- 1823 Sep, Upper respiratory tract infection, unspecified type J06.9 [facility] [address] 61634- 0413 Aug, [facility] [address] 94736- 7067 Aug, Dysuria R30.0 [facility] [address] 41520- 7879 Aug, [facility] [id number] [place] [address] 94661- 5853 Jul, [facility] [id number] [place] [address] 50029- 5781 Jul, [facility] [id number] [place] [address] 36587- 0267 Jul, [facility] [address] 26225- 7220 Jul, [facility] [address] 65997- 3616 Jun, [facility] [id number] [place] [address] 96183- 1325 Jun, [facility] [id number] [address] Jun, [facility] [id number] [place] [address] 82714- 9844 May, [facility] [id number] [place] [address] 04148- 0698 May, Bipolar I disorder, most recent episode (or current) mixed, moderate 296.62 [facility] [id number] [place] [address] 74097- 2439 May, [facility] [id number] [place] [address] 31543- 1576 May, Bipolar I disorder, most recent episode (or current) mixed, moderate 296.62 and Major depressive disorder, recurrent episode, severe, specified as with psychotic behavior 296.34 [facility] [id number] [place] [address] 02603- 6456 May, Bipolar I disorder, most recent episode (or current) mixed, moderate 296.62 [facility] [address], [place] [address] 7175 May, [facility] [id number] [place] [address] 24895- 9150 Apr, [facility] [address], [place] [address] 6478 Apr, [facility] [id number] [place] [address] 89746- 8830 Apr, Unspecified disorder of kidney and ureter 593.9 and Diabetes mellitus type 2, uncontrolled 250.02 [facility] [id number] [place] [address] 47013- 0864 Apr, [facility] [id number] [place] [address] 76567- 5266 Apr, [facility] [id number] [place] [address] 61096- 6022 Apr, [facility] [address], [place] [address]- 4791 Apr, [facility] [id number] [place] [address] 62388- 6301 Apr, Diabetes mellitus type II, uncontrolled 250.02 [facility] [id number] [place] [address] 68607- 4040 Apr, [facility] [id number] [place] [address] 13400- 7167 Mar, [facility] [id number] [place] [address] 40870- 5381 Mar, [facility] [id number] [place] [address] 75738- 9865 Mar, [facility] [id number] [place] [address] 84086- 5715 Mar, Major depressive disorder, recurrent episode, severe, specified as with psychotic behavior 296.34 and Bipolar I disorder, most recent episode (or current) mixed, moderate 296.62 [facility] [id number] [place] [address] 14889- 0707 Mar, Diabetes 250.00 ; Anuria 788.5 ; Nausea and vomiting 787.01 and Diarrhea 787.91 [facility] [address], [place] [address]- 8202 Mar, Diabetes 250.00 [facility] [id number] [place] [address] 70805- 3543 Mar, [facility] [address], [place] [address]- 6482 Mar, Diabetes 250.00 [facility] [id number] [place] [address] 87769- 9539 Mar, [facility] [address], [place] [address]- 2629 Mar, [facility] [id number] [place] [address] 25890- 1437 Mar, [place] [address] [address] 67685- 3302 Mar, [facility] [id number] [place] [address] 88710- 1301 Mar, Bipolar I disorder, most recent episode (or current) mixed, moderate 296.62 and Major depressive disorder, recurrent episode, severe, specified as with psychotic behavior 296.34 [place] [facility] [id number] [place] [address] 34738- 9918 Mar, Magnesium deficiency 275.2 ; Hypokalemia 276.8 ; Nausea & vomiting 787.01 and Diabetes mellitus type 2, uncontrolled 250.02 [place] [id number] [place] [address] 49189- 6707 Feb, [place] [address] 65992- 8384 Feb, Bipolar I disorder, most recent episode (or current) mixed, moderate 296.62 [place] [id number] [place] [address] 97194- 0559 Feb, Nausea and vomiting 787.01 ; Left elbow pain 719.42 ; Anuria 788.5 and Diabetes 250.00 [place] [id number] [place] [address] 60664- 6919 Feb, [place] [id number] [place] [address] 46411- 5325 Feb, Hypopotassemia 276.8 and Hypokalemia 276.8 [place] [address] 15759- 7856 Feb, Hypopotassemia 276.8 and Hypokalemia 276.8 [place] [id number] [place] [address] 50501- 7732 Feb, Seborrheic keratoses 702.19 [place] [address], [place] [address]- 3911 Feb, Hypopotassemia 276.8 and Low magnesium levels 275.2 [facility] [id number] [address]- 0925 January, [facility] [id number] [address]- 3028 January, [facility] [id number] [place] [address] 76526- 7839 January, [facility] [id number] [place] [address] 54489- 7373 January, Scalp lesion 709.9 [facility] [id number] [place] [address] 18989- 6509 January, [facility] [id number] [place] [address] 41606- 2317 Dec, Tear of medial cartilage or meniscus of knee, current 836.0 and 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 [facility] [address], [place] [address]- 7350 Dec, [facility] [id number] [place] [address] 94650- 2815 Dec, [facility] [address], [place] [address]- 6491 Dec, Squamous cell carcinoma, 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 [facility] [address], [place] [address]- 2807 Dec, [facility] [id number] [address]- 0219 Dec, [facility] [id number] [address]- 0040 Nov, [facility] [address], [place] [address]- 7865 Nov, [facility] [place] [facility] [address] [id number] [place] [address]- 3747 Nov, [facility] [place] [facility] [address] [id number] [place] [address]- 3221 Nov, [facility] [place] [facility] [address] [id number] [place] [address]- 9421 Nov, 2014 [facility] [place] [facility] [address] [id number] [place] [address]- 4162 Nov, 2014 [facility] [place] [facility] [address] [id number] [place] [address]- 2328 Nov, [facility] [place] [facility] [address] [id number] [place] [address]- 1330 Nov, [facility] [place] [facility] [address] [id number] [place] [address]- 0391 Nov, [facility] [place] [facility] [address] [id number] [place] [address]- 2065 Nov, [facility] [place] [facility] [address] [id number] [place] [address]- 5467 Nov, [facility] [place] [facility] [address] [id number] [place] [address]- 9364 Nov, [facility] [place] [facility] [address] [facility] [id number] [place] [address]- 4067 Oct, 2014 [facility] [place] [facility] [address] [id number] [place] [address]- 1620 Oct, 2014 [facility] [place] [facility] [address] [id number] [place] [address]- 5966 Oct, 2014 [facility] [place] [facility] [address] [id number] [place] [address]- 9110 Oct, 2014 [facility] [place] [facility] [address] [id number] [place] [address]- 4595 Oct, 2014 [facility] [place] [facility] [address] [id number] [address]- 7774 Oct, [facility] [place] [facility] [address] [id number] [place] [address]- 1366 Oct, [facility] [place] [facility] [address] [id number] [place] [address]- 5972 Oct, [facility] [place] [facility] [address] [id number] [place] [address]- 0429 Oct, [facility] [place] [facility] [address] [id number] [place] [address]- 8397 Sep, [facility] [place] [facility] [address] [id number] [place] [address]- 0751 Sep, [facility] [place] [facility] [address] [id number] [place] [address]- 4046 Sep, [facility] [place] [facility] [address] [id number] [place] [address]- 6646 Sep, [facility] [place] [facility] [address] [id number] [address]- 2032 Sep, [facility] [place] [facility] [address] [id number] [place] [address]- 0473 Sep, [facility] [place] [facility] [address] [id number] [place] [address]- 6753 Sep, [facility] [place] [facility] [address] [id number] [place] [address]- 5923 Sep, [facility] [place] [facility] [address] [id number], [place] [address]- 5417 Sep, [facility] [place] [facility] [address] [id number], [place] [address]- 1043 Sep, [facility] [place] [facility] [address] [id number], [place] [address]- 3561 Sep, [facility] [place] [facility] [address] [id number], [place] [address]- 9127 Sep, [facility] [place] [facility] [address] [id number] [place] [address]- 5405 Sep, [facility] [address] [id number] [place] [address]- 3402 Sep, [facility] [address] [id number] [place] [address]- 9226 Sep, [facility] [address] [id number] [place] [address]- 7228 Sep, [facility] [address] [id number] [place] [address]- 2263 Aug, [facility] [address] [id number] [place] [address]- 0966 Aug, [facility] [address] [id number] [place] [address]- 8648 Aug, [facility] [address] [id number] [place] [address]- 3626 Aug, [facility] [address] [id number] [place] [address]- 0816 Aug, [facility] [address] [id number] [place] [address]- 4468 Aug, [facility] [address] [id number] [place] [address]- 7088 Aug, [facility] [address] [id number] [place] [address]- 4674 Aug, [facility] [address] [id number] [place] [address]- 3183 Aug, [facility] [address] [id number] [place] [address]- 6237 Aug, [facility] [address] [id number] [place] 5356 Aug, [facility] [address] [place] [id number] Aug, [facility] [address] [id number] [place] [address]- 2352 Aug, [facility] [place] [facility] [address] [id number] [place] [address]- 6963 Aug, [facility] [place] [facility] [address] [id number] [place] [address]- 4324 Aug, [facility] [place] [facility] [address] [id number] [place] [address]- 8407 Aug, [facility] [place] [facility] [address] [id number] [place] [address]- 5354 Aug, [facility] [place] [facility] [address] [id number] [place] [address]- 2272 Aug, [facility] [place] [facility] [address] [id number] [place] [address]- 3798 Aug, [facility] [place] [facility] [address] [id number] [place] [address]- 0227 Aug, [facility] [place] [facility] [address] [id number] [place] [address]- 0736 Aug, [facility] [place] [facility] [address] [id number] [place] [address]- 6031 Aug, [facility] [place] [facility] [address] [id number] [place] [address]- 2213 Aug, [facility] [place] [facility] [address] [id number] [place] [address]- 3962 Aug, [facility] [place] [facility] [address] [id number] [place] [address]- 6135 Aug, [facility] [place] [facility] [address] [id number] [place] [address]- 5707 Aug, [facility] [place] [facility] [address] [id number] [place] [address]- 2291 Aug, [facility] [place] [facility] [address] [id number], [place] [address]- 0570 Aug, [facility] [place] [facility] [address] [id number] [place] [address]- 6508 Aug, [facility] [place] [facility] [address] [id number] [place] 8428 Aug, [facility] [place] [facility] [address] [id number] [place] [address]- 3102 Jul, [facility] [place] [facility] [address] [id number] [place] [address]- 6562 Jul, [facility] [place] [facility] [address] [id number] [place] [address]- 8389 Jul, [facility] [place] [facility] [address] [id number] [place] [address]- 0410 Jul, [facility] [place] [facility] [address] [id number] [place] [address]- 9881 Jul, [facility] [place] [facility] [address] [id number] [place] [address]- 5131 Jul, [facility] [place] [facility] [address] [id number] [place] [address]- 3073 Jul, [facility] [place] [facility] [address] [id number] [place] [address]- 5994 Jul, [facility] [place] [facility] [address] [id number], [place] [address]- 2000 Jul, [facility] [place] [facility] [address] [id number], [place] [address]- 4882 Jul, [facility] [place] [facility] [address] [id number] [place] [address]- 4612 Jun, [facility] [place] [facility] [address] [id number] [place] [address]- 5789 Jun, [facility] [place] [facility] [address] [id number] [place] [address]- 3518 Jun, [facility] [place] [facility] [address] [id number] [place] [address]- 0052 16 Jun, 2014 [facility] [place] [facility] [address] [id number] [place] [address]- 9184 15 Jun, 2014 [facility] [place] [facility] [address] [id number] [place] [address]- 8516 15 Jun, 2014 [facility] [place] [facility] [address] [id number] [place] [address]- 9557 05 Jun, 2014 [facility] [place] [facility] [address] [id number] [place] [address]- 0784 05 Jun, 2014 [facility] [place] [facility] [address] [id number] [place] [address]- 1014 Jun, [facility] [place] [facility] [address] [id number] [place] [address]- 1373 Jun, [facility] [place] [facility] [address] [id number] [place] [address]- 1965 29 May, 2013 [facility] [place] [facility] [address] [id number] [place] [address]- 2544 29 Sep, 2013 [facility] [place] [facility] [address] [id number] [place] [address]- 1899 26 Sep, 2013 [facility] [place] [facility] [address] [id number] [place] [address]- 5087 26 Sep, 2013 [facility] [place] [facility] [address] [id number] [place] [address]- 2548 17 Sep, 2013 [facility] [place] [facility] [address] [id number] [place] [address]- 2545 17 Sep, 2013 [facility] [place] [facility] [address] [id number] [place] [address]- 2546 15 Sep, 2013 [facility] [place] [facility] [address] [id number] [place] [address]- 2546 15 Sep, 2013 [facility] [place] [facility] [address] [id number] [place] [address]- 2542 15 May, 2013 [facility] [place] [facility] [address] [id number] [place] [address]- 1614 15 May, 2013 [facility] [place] [facility] [address] [id number] [place] [address]- 9975 10 May, 2013 [facility] [place] [facility] [address] [id number] [place] [address]- 6891 10 May, 2013 [facility] [place] [facility] [address] [id number] [place] [address]- 5141 09 May, 2013 [facility] [place] [facility] [address] [id number] [place] [address]- 5693 May, 2013 [facility] [place] [facility] [address] [id number] [place] [address]- 4065 May, 2013 [facility] [place] [facility] [address] [id number] [place] [address]- 6279 May, 2013 [facility] [place] [facility] [address] [id number] [place] [address]- 3351 Apr, [facility] [place] [facility] [address] [id number] [place] [address]- 0455 Apr, [facility] [place] [facility] [address] [id number] [place] [address]- 6038 Apr, [facility] [place] [facility] [address] [id number] [place] [address]- 1837 Apr, [facility] [place] [facility] [address] [id number] [place] [address]- 0674 Apr, [facility] [place] [facility] [address] [id number] [place] [address]- 7325 Apr, [facility] [place] [facility] [address] [id number] [place] [address]- 5340 Apr, [facility] [place] [facility] [address] [id number] [place] [address]- 4916 Apr, [facility] [place] [facility] [address] [id number] [place] [address]- 5088 Apr, [facility] [place] [facility] [address] [id number] [place] [address]- 7317 Apr, [facility] [place] [facility] [address] [id number] [place] [address]- 9357 Apr, [facility] [place] [facility] [address] [id number] [place] [address]- 6915 Apr, [facility] [place] [facility] [address] [id number] [place] [address]- 5126 Apr, [facility] [place] [facility] [address] [id number] [place] [address]- 9637 Apr, [facility] [place] [facility] [address] [id number] [place] [address]- 0034 Apr, [facility] [place] [facility] [address] [id number] [place] [address]- 3518 Mar, [facility] [place] [facility] [address] [id number] [place] [address]- 8646 Mar, [facility] [place] [facility] [address] [id number] [place] [address]- 5070 Mar, [facility] [place] [facility] [address] [id number] [place] [address]- 6055 Mar, [facility] [place] [facility] [address] [id number] [place] [address]- 8487 Mar, [facility] [place] [facility] [address] [id number] [place] [address]- 4988 Mar, [facility] [place] [facility] [address] [id number] [place] [address]- 3447 Mar, [facility] [place] [facility] [address] [id number] [place] [address]- 3391 Mar, [facility] [place] [facility] [address] [id number] [place] [address]- 1603 Mar, [facility] [place] [facility] [address] [id number] [place] [address]- 9152 Mar, 2013 [facility] [place] [facility] [address] [id number] [place] [address]- 3921 Mar, 2013 [facility] [place] [facility] [address] [id number] [place] [address]- 7876 Mar, 2013 [facility] [place] [facility] [address] [id number] [place] [address]- 6217 Mar, 2013 [facility] [place] [facility] [address] [id number] [place] [address]- 3189 Mar, 2013 [facility] [place] [facility] [address] [id number] [place] [address]- 7900 Mar, 2013 [facility] [place] [facility] [address] [id number] [place] [address]- 5280 Mar, 2013 [facility] [place] [facility] [address] [id number] [place] [address]- 6280 Mar, [facility] [place] [facility] [address] [id number] [place] [address] Mar, [facility] [place] [facility] [address] [id number] [place] [address] Feb, [facility] [place] [facility] [address] [id number] [place] [address] Feb, [facility] [place] [facility] [address] [id number] [place] [address] Feb, [facility] [place] [facility] [address] [id number] [place] [address] Feb, [facility] [place] [facility] [address] [id number] [place] [address] Feb, [facility] [place] [facility] [address] [id number] [place] [address] Feb, [facility] [place] [facility] [address] [id number] [place] [address] Feb, [facility] [place] [facility] [address] [id number] [place] [address] Feb, [facility] [place] [facility] [address] [id number] [place] [address] Feb, [facility] [place] [facility] [address] [id number] [place] [address] Feb, [facility] [place] [facility] [address] [id number] [place] [address] Feb, [facility] [place] [facility] [address] [id number] [place] [address] Feb, [facility] [place] [facility] [address] [id number] [place] [address] Feb, [facility] [place] [facility] [address] [id number] [place] [address]- [address] Feb, [facility] [place] [facility] [address] [id number] [place] [address]- [address] January, [facility] [place] [facility] [address] [id number] [place] [address] January, [facility] [place] [facility] [address] [id number] [place] [address] January, [facility] [place] [facility] [address] [id number] [place] [address]- [address] January, [facility] [place] [facility] [address] [id number] [place] [address] January, [facility] [place] [facility] [address] [id number] [place] [address] January, [facility] [place] [facility] [address] [id number] [place] [address]- [address] January, [facility] [place] [facility] [address] [id number] [place] [address] January, [facility] [place] [facility] [address] [id number] [place] [address] January, [facility] [address] [id number] [place] [address] January, [facility] [address] [id number] [place] [address] January, [facility] [place] [address] [id number] [place] [address] January, [facility] [address] [id number] [place] [address] January, [facility] [address] [id number] [place] [address] January, [facility] [place] [address] [id number] [place] [address]- [address] Dec, [facility] [address] [id number] [place] [address] Dec, [facility] [address] [id number] [place] [address]- [address] Dec, [facility] [address] [id number] [place] [address]98 Dec, [facility] [address] [id number] [place] [address] Dec, [facility] [address] [id number] [place] [address]27 Dec, [facility] [address] [id number] [place] [address]- 133[address] Dec, [facility] [place] [facility] [address] [id number] [place] [address]- [address] Dec, [facility] [place] [facility] [address] [id number] [place] [address] 160[address] Dec, [facility] [address] [id number] [place] [address]- [address] Dec, [facility] [place] [facility] [address] [id number] [place] [address] Nov, [facility] [place] [facility] [address] [id number] [place] [address]- [address] Nov, [facility] [place] [facility] [address] [id number] [place] [address]- [address] Nov, [facility] [place] [facility] [address] [id number] [place] [address]- [address] Nov, [facility] [place] [facility] [address] [id number] [place] [address]- [address] Nov, [facility] [place] [facility] [address] [id number] [place] [address]- [address] Nov, [facility] [place] [facility] [address] [id number] [place] [address]- [address] Nov, [facility] [place] [facility] [address] [id number] [place] [address] Nov, [facility] [place] [facility] [address] [id number] [place] [address]- [address] Nov, [facility] [place] [facility] [address] [id number] [place] [address]- 1381 Nov, [facility] [place] [facility] [address] [id number] [place] [address]- 8432 Oct, [facility] [place] [facility] [address] [id number] [place] [address]- [address] Oct, [facility] [place] [facility] [address] [id number] [place] [address]- 8585 Oct, [facility] [place] [facility] [address] [id number] [place] [address]- 9433 Oct, [facility] [place] [facility] [address] [id number] [place] [address]- [address] Oct, [facility] [place] [facility] [address] [id number] [place] [address] 8747 Oct, [facility] [place] [facility] [address] [id number] [place] [address]- 3916 Oct, [facility] [place] [facility] [address] [id number] [place] [address]- [address]46 Oct, [facility] [place] [facility] [address] [id number] [place] [address]- [address]146 Oct, [facility] [place] [facility] [address] [id number] [place] [address]- 58[address] Oct, [facility] [place] [facility] [address] [id number] [place] [address]- [address]096 Oct, [facility] [place] [facility] [address] [id number] [place] [address]- 7193 Oct, [facility] [place] [facility] [address] [id number] [place] [address]- [address]377 Oct, [facility] [place] [facility] [address] [id number] [place] [address]- 9275 Oct, [facility] [place] [facility] [address] [id number] [place] [address]- [address] Sep, [facility] [place] [facility] [address] [id number] [place] [address]- [address] Sep, [facility] [place] [facility] [address] [id number] [place] [address] Sep, [facility] [place] [facility] [address] [id number] [place] [address] Sep, [facility] [place] [facility] [address] [id number] [place] [address] 1136 Sep, [facility] [place] [facility] [address] [id number] [place] [address] 7847 Sep, [facility] [place] [facility] [address] [id number] [place] [address] 6427 14 Sep, 2013 [facility] [place] [facility] [address] [id number] [place] [address]- 3885 14 Sep, 2013 [facility] [place] [facility] [address] [id number] [place] [address]- 5588 08 Sep, 2013 [facility] [place] [facility] [address] [id number] [place] [address]- 5859 Sep, [facility] [place] [facility] [address] [id number] [place] [address]- 3312 Aug, [facility] [place] [facility] [address] [id number] [place] [address]- 6559 Aug, [facility] [place] [facility] [address] [id number] [place] [address] 7507 Jul, [facility] [place] [facility] [address] [id number] [place] [address] 2411 Jul, [facility] [place] [facility] [address] [id number], [place] [address] Jul, [facility] [place] [facility] [address] [id number] [place] [address]- 2422 Jul, [facility] [place] [facility] [address] [id number] [place] [address]- 7011 Jul, [facility] [place] [facility] [address] [id number], [place] [address] 4[address] Jul, [facility] [place] [facility] [address] [id number], [place] [address] 6107 Jul, [facility] [place] [facility] [address] [id number] [place] [address]- 4003 Jul, [facility] [place] [facility] [address] [id number], [place] [address] 8025 Jul, [facility] [place] [facility] [address] [id number], [place] [address]- 3935 Jul, [facility] [place] [facility] [address] [id number] [place] [address]- 0148 07 Jul, 2012 [facility] [place] [facility] [address] [id number] [place] [address]- 5375 Jul, 2012 [facility] [place] [facility] [address] [id number] [place] [address]- 9137 Jul, 2012 [facility] [place] [facility] [address] [id number] [place] [address]- 7022 Jul, 2012 [facility] [place] [facility] [address] [id number] [place] [address]- 1912 Jul, 2012 [facility] [place] [facility] [address] [id number] [place] [address]- 9624 Jul, 2012 [facility] [place] [facility] [address] [id number] [place] [address]- 9381 Jul, 2012 [facility] [place] [facility] [address] [facility] [id number] [place] [address]- 0064 Jul, 2012 [facility] [place] [facility] [address] [id number] [place] [address]- 6801 Jul, [facility] [place] [facility] [address] [id number] [place] [address]- 8891 Jun, 2012 [facility] [place] [facility] [address] [facility] [id number][place] [address]- 1256 16 Jun, 2012 [facility] [place] [facility] [address] [id number] [place] [address]- 8389 16 Jun, 2012 [facility] [place] [facility] [address] [id number], [place] [address]- 4659 16 Jun, 2012 [facility] [place] [facility] [address] [id number] [place] [address] 16 Jun, 2012 [facility] [place] [facility] [address] [facility] [id number], [place] [address]- 1502 16 Jun, 2012 [facility] [place] [facility] [address] [id number] 6[address] 10 Jun, 2013 [facility] [place] [facility] [address] [id number] [place] [address]- 5496 Jun, [facility] [place] [facility] [address] [id number] [place] [address]- 4146 Jun, [facility] [place] [facility] [address] [id number] [place] [address]- 5009 Jun, [facility] [place] [facility] [address] [id number] [place] [address]- 7900 Jun, [facility] [place] [facility] [address] [id number] [place] [address]- 3857 26 May, 2013 [facility] [place] [facility] [address] [id number] [place] [address]- 2490 25 May, 2013 [facility] [place] [facility] [address] [id number] [place] [address]- 7309 May, [facility] [place] [facility] [address] [id number] [place] [address]- 5448 17 May, 2013 [facility] [place] [facility] [address] [id number] [place] [address]- 0288 May, [facility] [place] [facility] [address] [id number] [place] [address]- 1183 May, [facility] [place] [facility] [address] [id number] [place] [address]- 8307 May, [facility] [place] [facility] [address] [id number] [place] [address]- 8343 05 May, 2013 [facility] [place] [facility] [address] [id number] [place] [address]- 9377 Apr, [facility] [place] [facility] [address] [id number] [place] [address]- 6181 Apr, [facility] [place] [facility] [address] [id number] [place] [address]- 1569 Apr, [facility] [place] [facility] [address] [id number] [place] [address]- 2546 Apr, [facility] [place] [facility] [address] [id number] [place] [address]- 0679 Apr, [facility] [place] [facility] [address] [id number] [place] [address]- 4500 Mar, [facility] [place] [facility] [address] [id number] [place] [address]- 1805 Mar, [facility] [place] [facility] [address] [id number] [place] [address]- 1553 Mar, [facility] [place] [facility] [address] [id number] [place] [address]- 4639 Mar, [facility] [place] [facility] [address] [id number] [place] [address]- 1258 Mar, [facility] [place] [facility] [address] [id number] [place] [address]- 6816 Mar, [facility] [place] [facility] [address] [id number] [place] [address]- 9294 Mar, [facility] [place] [facility] [address] [id number] [place] [address]- 7777 Mar, [facility] [place] [facility] [address] [id number] [place] [address]- 5955 Feb, [facility] [place] [facility] [address] [id number] [place] [address]- 1112 Feb, [facility] [place] [facility] [address] [id number] [place] [address]- 1178 January, [facility] [place] [facility] [address] [id number] [place] [address]- 6280 January, [facility] [place] [facility] [address] [id number] [place] [address]- 2020 Dec, [facility] [place] [facility] [address] [id number] [place] [address]- 4588 Dec, [facility] [place] [facility] [address] [id number] [place] [address]- 8711 Nov, [facility] [address] [id number] [place] [address]- 0670 Nov, [facility] [place] [facility] [address] [id number] [place] [address]- 6935 Nov, [facility] [address] [id number] [place] [address]- 6876 Nov, [facility] [place] [facility] [address] [id number] [place] [address]- 8602 Oct, [facility] [place] [facility] [address] [id number] [place] [address]- 0063 Oct, [facility] [place] [facility] [address] [id number] [place] [address]- 9091 Oct, [facility] [place] [facility] [address] [id number] [place] [address]- 6443 26 Oct, 2012 [facility] [address] [id number] [place] [address]- 9011 16 Oct, 2012 [facility] [place] [facility] [address] [id number] [place] [address]- 7717 14 Oct, 2012 [facility] [place] [facility] [address] [id number] [place] [address]- 7221 08 Oct, 2012 [facility] [place] [facility] [address] [id number] [place] [address]- 3919 07 Oct, 2012 [facility] [place] [facility] [address] [id number] [place] [address]- 2869 03 Oct, 2012 [facility] [place] [facility] [address] [id number] [place] [address]- 9466 30 Sep, 2012 [facility] [place] [facility] [address] [id number] [place] [address]- 5263 Sep, [facility] [place] [facility] [address] [id number] [place] [address]- 2653 Sep, [facility] [address] [id number] [place] [address]- 3234 Sep, [facility] [place] [facility] [address] [id number] [place] [address]- 6626 Sep, [facility] [place] [facility] [address] [id number] [place] [address]- 3210 Sep, [facility] [place] [facility] [address] [id number] [place] [address]- 3635 Sep, [facility] [place] [facility] [address] [id number] [place] [address]- 8145 Sep, [facility] [place] [facility] [address] [id number] [place] [address]- 4494 Aug, [facility] [address] [id number] [place] [address]- 7699 Aug, [facility] [place] [facility] [address] [id number] [place] [address]- 9799 Aug, [facility] [place] [facility] [address] [id number] [place] [address]- 3168 Aug, [facility] [place] [facility] [address] [id number] [place] [address]- 2796 Aug, [facility] [place] [facility] [address] [id number] [place] [address]- 1538 Aug, [facility] [place] [facility] [address] [id number] [place] [address]- 0690 Aug, [facility] [place] [facility] [address] [id number] [place] [address]- 4405 Aug, [facility] [place] [facility] [address] [id number] [place] [address]- 7758 Jul, [facility] [place] [facility] [address] [id number] [place] [address]- 8624 Jul, [facility] [place] [facility] [address] [id number] [place] [address]- 4424 Jul, [facility] [place] [facility] [address] [id number] [place] [address]- 3713 Jul, [facility] [place] [facility] [address] [id number] [place] [address]- 5279 Jul, [facility] [place] [facility] [address] [id number] [place] [address]- 2792 Jul, [facility] [place] [facility] [address] [id number] [place] [address]- 0439 Jun, [facility] [place] [facility] [address] [id number] [place] [address]- 0884 Jun, [facility] [place] [facility] [address] [id number] [place] [address]- 6766 Jun, [facility] [place] [facility] [address] [id number] [place] [address]- 1481 Jun, [facility] [place] [facility] [address] [id number] [place] [address]- 7131 Jun, [facility] [place] [facility] [address] [id number] [place] [address]- 8453 Jun, [facility] [place] [facility] [address] [id number] [place] [address]- 3091 Jun, [facility] [place] [facility] [address] [id number] [place] [address]- 6498 10 Jun, 2012 [facility] [place] [facility] [address] [id number] [place] [address]- 7423 10 Jun, 2012 [facility] [place] [facility] [address] [id number] [place] 9917 26 May, 2012 [facility] [place] [facility] [address] [id number] [place] [address]- 2698 24 May, 2012 [facility] [place] [facility] [address] [id number] [place] [address]- 1977 May, [facility] [place] [facility] [address] [id number] [place] [address]- 1131 Apr, [facility] [place] [facility] [address] [id number] [place] [address]- 9882 Apr, [facility] [place] [facility] [address] [id number] [place] [address]- 0533 Apr, [facility] [place] [facility] [address] [id number] [place] [address]- 4007 Apr, [facility] [place] [facility] [address] [id number] [place] [address]- 9410 Apr, [facility] [place] [facility] [address] [id number] [place] [address]- 5008 Apr, [facility] [place] [facility] [address] [id number] [place] [address]- 8602 Mar, [facility] [place] [facility] [address] [id number] [place] [address]- 8117 Mar, [facility] [place] [facility] [address] [id number] [place] [address]- 6494 Mar, [facility] [place] [facility] [address] [id number] [place] [address]- 5753 Mar, [facility] [place] [facility] [address] [id number] [place] [address]- 9910 Feb, [facility] [place] [facility] [address] [id number] [place] [address]- 7009 Feb, [facility] [place] [facility] [address] [id number] [place] [address]- 6923 Feb, [facility] [place] [facility] [address] [id number] [place] [address]- 4603 Feb, [facility] [place] [facility] [address] [id number] [place] [address]- 2543 Feb, [facility] [place] [facility] [address] [id number] [place] [address]- 0576 January, [facility] [address] [id number] [place] [address]- 5324 January, [facility] [place] [facility] [address] [id number] [place] [address]- 5355 January, [facility] [address] [id number] [place] [address]- 2833 January, [facility] [place] [facility] [address] [id number] [place] [address]- 8123 January, [facility] [address] [id number] [place] [address]- 6065 January, [facility] [address] [id number] [place] [address]- 2894 Dec, [facility] [address] [id number] [place] [address]- 0122 Dec, [facility] [place] [facility] [address] [id number] [place] [address]- 6872 Dec, [facility] [place] [facility] [address] [id number] [place] [address]- 0450 Dec, [facility] [place] [facility] [address] [id number] [place] [address]- 1056 Dec, [facility] [place] [facility] [address] [id number] [place] [address]- 2362 Nov, [facility] [place] [facility] [address] [id number] [place] [address]- 1674 Nov, [facility] [place] [facility] [address] [id number] [place] [address]- 7686 Nov, [facility] [place] [facility] [address] [id number] [place] [address]- 5198 Nov, [facility] [place] [facility] [address] [id number] [place] [address]- 8785 Oct, [facility] [place] [facility] [address] [id number] [place] [address]- 1555 28 Oct, 2011 [facility] [place] [facility] [address] [id number] [place] [address]- 3426 24 Oct, 2011 [facility] [place] [facility] [address] [id number] [place] [address]- 2096 13 Oct, 2011 [facility] [place] [facility] [address] [id number] [place] [address]- 7706 Oct, [facility] [place] [facility] [address] [id number] [place] [address]- 4067 Sep, [facility] [place] [facility] [address] [id number] [place] [address]- 2956 Sep, [facility] [place] [facility] [address] [id number] [place] [address]- 0264 Sep, [facility] [place] [facility] [address] [id number] [place] [address]- 3022 Sep, [facility] [place] [facility] [address] [id number] [place] [address]- 7314 Sep, [facility] [place] [facility] [address] [id number] [place] [address]- 4195 Sep, [facility] [place] [facility] [address] [id number] [place] [address]- 6550 Aug, [facility] [place] [facility] [address] [id number] [place] [address]- 9641 Aug, [facility] [place] [facility] [address] [id number] [place] [address]- 2756 Aug, [facility] [place] [facility] [address] [id number] [place] [address]- 4136 Jul, [facility] [place] [facility] [address] [id number] [place] [address]- 1645 Jul, [facility] [place] [facility] [address] [id number], [place] [address]- 1428 Jul, [facility] [place] [facility] [address] [id number] [place] [address]- 1137 Jul, [facility] [place] [facility] [address] [id number] [place] [address]- 2198 Jun, [facility] [place] [facility] [address] [id number] [place] 0190 Jun, [facility] [place] [facility] [address] [id number] [place] [address]- 5852 Jun, [facility] [place] [facility] [address] [id number] [place] [address]- 5619 Jun, [facility] [place] [facility] [address] [id number] [place] [address]- 3983 Jun, [facility] [place] [facility] [address] [id number] [place] [address]- 8938 Jun, [facility] [place] [facility] [address] [id number] [place] [address]- 4638 Mar, [facility] [place] [facility] [address] [id number] [place] [address]- 4225 Dec, [facility] [place] [facility] [address] [id number] [place] [address]- 2362 Dec, [facility] [place] [facility] [address] [id number] [place] [address]- 0544 Nov, [facility] [place] [facility] [address] [id number] [place] [address]- 3984 16 Nov, 2010 [facility] [place] [facility] [address] [id number] [place] [address]- 7185 Sep, [facility] [place] [facility] [address] [id number] [place] [address]- 0411 Aug, [facility] [place] [facility] [address] [id number] [place] 9359 29 Aug, 2010 [facility] [place] [facility] [address] [id number] [place] [address]- 6126 29 Aug, 2010 [facility] [address] [id number] [place] [address]- 6026 29 Aug, 2010 [facility] [place] [facility] [address] [id number] [place] [address] 2546 27 Aug, 2010 [facility] [address] [id number] [place] [address] 2546 14 Aug, 2010 [facility] [place] [facility] [address] [id number] [place] [address] 2546 08 Aug, 2010 [facility] [address] [id number] [place] [address]- 6456 08 Aug, 2010 [facility] [address] [id number] [place] [address] 2546 07 Aug, 2010 [facility] [address] [id number] [place] [address] 2546 Aug, [facility] [address] [id number] [place] [address]- 1248 06 Aug, 2010 [facility] [address] [id number] [place] [address] 2546 Aug, [facility] [address] [facility] [id number] [place] [address]- 1057 Jul, [facility] [place] [facility] [address] [id number] [place] [address] 2546 30 Jul, 2010 [facility] [place] [facility] [address] [id number] [place] [address] 2546 30 Jul, 2010 [facility] [place] [facility] [address] [id number] [place] [address] 2546 17 Jul, 2010 [facility] [place] [facility] [address] [id number] [place] [address] 08 Jul, 2010 [facility] [place] [facility] [address] [id number] [place] [address] Jul, [facility] [place] [facility] [address] [id number] [place] [address] 24 Jun, 2010 [facility] [place] [facility] [address] [id number] [place] [address] Jun, [facility] [place] [facility] [address] [id number] [place] [address] Jun, [facility] [place] [facility] [address] [id number] [place] [address] 13 Jun, 2010 [facility] [place] [facility] [address] [id number] [place] [address] 16 Apr, 2010 [facility] [place] [facility] [address] [id number] [place] [address] Mar, [facility] [place] [facility] [address] [id number] [place] [address] Feb, [facility] [place] [facility] [address] [id number] [address] January, [facility] [place] [facility] [address] [id number] [place] [address] 15 Dec, 2009 [facility] [place] [facility] [address] [id number] [address] Nov, [facility] [place] [facility] [address] [id number][place] [address] Aug, [facility] [place] [facility] [address] [id number][place] [address] Aug, [facility] [place] [facility] [address] [id number] [place] [address] Aug, [facility] [place] [facility] [address] [id number][place] [address] Jul, [facility] [place] [facility] [address] [id number] [place] [address] Jul, [facility] [place] [facility] [id number], [place] [address] Jul, [facility] [id number], [place] [address] Jun, [facility] [id number], [place] [address] Jun, [facility] [id number], [place] [address] Jun, [facility] [id number], [place] [address] Jun, [facility] [id number] [place] [id number] Jun, [facility] [id number] [place] [address] Jun, [facility] [id number] [place] [address] Apr, [facility] [id number] [place] [address] Apr, [facility] [id number], [place] [address] Feb, [facility] [id number] [address] January, [facility] [id number] [address] Dec, IMMUNIZATIONS No Known Immunizations SOCIAL HISTORY Never Assessed REASON FOR VISIT Refill request PLAN OF CARE VITAL SIGNS MEDICATIONS Medication Instructions Dosage Frequency Start Date End Date Duration Status Flomax 0.4 mg Orally Once a day 1 capsule 30 minutes after the same meal each day 24h Aug, 90 Active RESULTS No Results PROCEDURES No Known [...] obesity Medical History skin cancer-basal cell R orthodox (removed) Medical History Arthritis Medical History [...] tunnel release (Left) 2000 Surgical History EGD ([facility]) 2009 Surgical History colonoscopy 2009 ([facility]), 2013 ([place]) Surgical History heart 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 04/2014 Surgical History carotid US 05/2014 Surgical History resection of skin cancer from Right orthodox Surgical History Biopsy of Lung Bilateral/Left lung lymph node 09/2016 Surgical History Bone Marrow Biopsy Surgical History port in the right chest wall 12/2016 Hospitalization History [facility] low potassium, low magnesium, chest painina 01/2015 Hospitalization History inability to urinate 09/16/15 Hospitalization History [facility] mental health early Hospitalization History hyperkalemia 10/2017 Hospitalization History fluid in lung
--- NOTE | 2018-08-08 13:07 | Anesthesia-General Post-Op ---
General Patient Condition Mental Status/LOC: Same as Preop Cardiovascular: Satisfactory Nausea/Vomiting: Absent Respiratory: Satisfactory Pain: Controlled Complications: Absent Post Op Complications Complications None Follow Up Care/Instructions Patient Instructions None needed. Anesthesia/Patient Condition Patient Condition Patient is doing well, no complaints, stable vital signs, no apparent adverse anesthesia problems. No complications reported per nursing. NELI CAMP CRNA Aug 08, 2018 13:06
--- OUTSIDE RECORDS SUMMARY | 2018-08-08 13:07 | XMS REPORT ---
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 Name Role Phone NOEMI WASHBURN Unavailable PROBLEMS Type Condition ICD9-CM Code SEQ68-DQ Code Onset Dates Condition Status SNOMED Code Problem Chronic lymphocytic leukemia C91.10 Active 60647409 Problem Insomnia, unspecified type G47.00 Active 152315998 Problem Lymphocytosis D72.820 Active 51913789 Problem Anxiety F41.9 Active 17610710 Problem Eye exam abnormal R93.8 Active 799375233 Problem Morbid obesity E66.01 Active 764696175 Problem Diabetic polyneuropathy associated with type 2 diabetes mellitus E11.42 Active 85366130 Problem Essential hypertension I10 Active 03235224 Problem Falling R29.6 Active 525149722 Problem 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 Active 674195783 Problem Cough R05 Active 18473865 Problem Dysuria R30.0 Active 41496161 Problem Eustachian tube dysfunction, unspecified laterality H69.80 Active 94589442 Problem Bilateral primary osteoarthritis of knee M17.0 Active 196144045 Problem Polyneuropathy associated with underlying disease G63 Active 628420667 Problem Anemia of chronic illness D63.8 Active 205472639 Problem Retinal edema H35.81 Active 1557355 Problem DM neuro manif type II E11.49 Active 44545426 Problem Diabetes E11.9 Active 46583719 Problem Hypokalemia E87.6 Active 54355105 Problem Benign prostatic hyperplasia with lower urinary tract symptoms, unspecified morphology N40.1 Active 087240823 Problem Reactive airway disease J45.909 Active 958047214211 Problem Bipolar I disorder, most recent episode (or current) mixed, moderate F31.62 Active 06675441 Problem Chronic pain G89.29 Active 58769658 Problem Leukocytosis D72.829 Active 012062673 ALLERGIES No Information ENCOUNTERS Encounter Location Date Diagnosis [facility] [address], [place] [address] Mar, [facility] [address], [place] [address] Mar, [facility] [address], [place] [address] 480[address] Mar, [facility] [address], [place] [address] Mar, [facility] [address], [place] [address] Feb, [facility] [address] [place] [address] 530849- 3193 Feb, Decubitus ulcer of right foot, stage 3 L89.893 and BMI 50.0- 59.9, adult Z68.43 [facility] [address], [place] [address] Feb, Bipolar I disorder, most recent episode (or current) mixed, moderate F31.62 [facility] [address], [place] [address] 7[address] Feb, [facility] [address], [place] [address] January, [facility] [address], [place] [address] 47[address] January, Chronic pain G89.29 [facility] [address], [place] [address] 3954 January, Bipolar I disorder, most recent episode (or current) mixed, moderate F31.62 [facility] [address], [place] [address] 79[address] January, Bipolar I disorder, most recent episode (or current) mixed, moderate F31.62 [facility] [address], [place] [address]- [address] Dec, Bipolar I disorder, most recent episode (or current) mixed, moderate F31.62 and BMI 50.0-59.9, adult Z68.43 [facility] [address] [address]- [address] Dec, Bipolar I disorder, most recent episode (or current) mixed, moderate F31.62 [facility] [address] [address]- [address] Dec, Chronic pain G89.29 [facility] [address] [address]- 6277 Dec, DM neuro manif type II E11.49 ; Right flank pain R10.9 ; 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 ; Encounter for medication monitoring Z51.81 and BMI 50.0-59.9, adult Z68.43 [facility] [address] [address]- 8698 Dec, Bipolar I disorder, most recent episode (or current) mixed, moderate F31.62 [facility] [address] [place] [id number] [place] [address] 82114- 3826 Nov, Bipolar I disorder, most recent episode (or current) mixed, moderate F31.62 [facility] [address] [id number] [place] [address] 19527- 1273 Nov, Chronic pain G89.29 [facility] [address] [address]- 2892 Nov, Bipolar I disorder, most recent episode (or current) mixed, moderate F31.62 [facility] [address] [address] [id number] [place] [address] 51301- 6143 Nov, Hypokalemia E87.6 [facility] [address] [id number] [place] [address] 65240- 5109 Nov, Bipolar I disorder, most recent episode (or current) mixed, moderate F31.62 [facility] [address] [place] [address]- 0145 Oct, Chronic pain G89.29 [facility] [address] 79498- 1483 Oct, BMI 50.0-59.9, adult Z68.43 and Bipolar I disorder, most recent episode (or current) mixed, moderate F31.62 [facility] [address] [address]- 2630 Oct, Bipolar I disorder, most recent episode (or current) mixed, moderate F31.62 [facility] [address] 58[address]- 7867 Oct, [facility] [address] 95459- 7981 Oct, Hypokalemia E87.6 [facility] [address] 3[address]- 3501 Oct, DM neuro manif type II E11.49 [facility] [address] [address] [id number] [place] [address] 68837- 6911 Oct, Bipolar I disorder, most recent episode (or current) mixed, moderate F31.62 [facility] [id number] [place] [address] 33600- 6979 Oct, Bipolar I disorder, most recent episode (or current) mixed, moderate F31.62 [facility] [address] [address] [id number] [place] [address] 15076- 3868 Oct, Hyperkalemia E87.5 ; Falling R29.6 ; BMI 50.0-59.9, adult Z68.43 and Acute left ankle pain M25.572 [facility] [address] [address]- 9206 Oct, DM neuro manif type II E11.49 [facility] [address] 34474- 0930 Oct, [facility] [address] [place] [address] 08432- 8729 Sep, Chronic pain G89.29 [facility] [address] [address] [id number] [place] [address] 15781- 8877 Sep, [facility] [address] [id number] [place] [address] 95922- 0958 Sep, Bilateral primary osteoarthritis of knee M17.0 [facility] [address] [address] [id number] [place] [address] 12227- 1709 Sep, Generalized edema R60.[address] [address]- 7172 Sep, Bipolar I disorder, most recent episode (or current) mixed, moderate F31.62 [place] [id number] [place] [address] 71059- 2084 Sep, Hypoxia R09.02 ; Other hypervolemia E87.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 ; Anemia of chronic illness D63.8 and BMI 50.0- 59.9, adult Z68.43 [place] [id number] [place] [address] 39412- 2056 Sep, [facility] [id number] [place] [address] 05004- 0597 Sep, Bipolar I disorder, most recent episode (or current) mixed, moderate F31.62 [facility] [address] [id number] [place] [address] 08577- 6793 Aug, Chronic pain G89.29 [facility] [address] [id number] [place] [address] 82549- 5473 Aug, Generalized edema R60.1 [facility] [address] [address] [id number] [place] [address] 58456- 2379 Aug, [facility] [address] [place] [address] 47262- 9788 Aug, [facility] [address] [address] [id number] [place] [address] 41558- 6525 Aug, Bipolar I disorder, most recent episode (or current) mixed, moderate F31.62 [facility] [address] [id number] [place] [address] 80132- 5711 Aug, Bipolar I disorder, most recent episode (or current) mixed, moderate F31.62 [facility] [address] [id number] [place] [address] 99073- 5331 Aug, Chronic pain G89.29 [facility] [address] [address] [id number] [place] [address] 66415- 1077 Jul, Bipolar I disorder, most recent episode (or current) mixed, moderate F31.62 [facility] [address] [address] [id number] [place] [address] 26069- 8655 Jul, Bipolar I disorder, most recent episode (or current) mixed, moderate F31.62 and BMI 60.0-69.9, adult Z68.44 [facility] [address] [place] [address] [id number] [place] [address] 55466- 3400 Jul, Bipolar I disorder, most recent episode (or current) mixed, moderate F31.62 [facility] [address] [place] [address] [id number] [place] [address] 28744- 0367 Jul, Chronic pain G89.29 [facility] [address] [id number] [place] [address] 18713- 9018 Jul, Bipolar I disorder, most recent episode (or current) mixed, moderate F31.62 [facility] [address] [address] [id number] [place] [address] 26345- 5683 Jun, Polyneuropathy associated with underlying disease G63 and Diabetes E11.9 [facility] [address] [address] [id number] [place] [address] 62413- 2334 Jun, Bipolar I disorder, most recent episode (or current) mixed, moderate F31.62 [facility] [address] [place] [address] 87018- 5554 09 Jun, 2017 Chronic pain G89.29 [facility] [address] [place] [address] 74640- 0369 27 May, 2017 Bipolar I disorder, most recent episode (or current) mixed, moderate F31.62 [facility] [id number] [place] [address] 41608- 1130 21 May, 2017 Bipolar I disorder, most recent episode (or current) mixed, moderate F31.62 [facility] [address] [address] [id number] [place] [address] 738130- 5122 20 May, 2017 Diabetic polyneuropathy associated with type 2 diabetes mellitus E11.42 [facility] [id number] [place] [address] 06938- 6367 18 May, 2017 Bipolar I disorder, most recent episode (or current) mixed, moderate F31.62 [facility] [address] [place] [address] 30615- 1739 13 May, 2017 Bipolar I disorder, most recent episode (or current) mixed, moderate F31.62 [facility] [address] [place] [address] 62209- 5537 May, Chronic pain G89.29 [facility] [address] [place] [address] 85792- 8984 Apr, Bipolar I disorder, most recent episode (or current) mixed, moderate F31.62 [facility] [address] [place] [address] 09227- 9676 Apr, [facility] [address] [id number] [place] [address] 21431- 9887 Apr, Chronic pain G89.29 and DM neuro manif type II E11.49 [facility] [id number] [place] [address] 31849- 5112 Apr, [facility] [address], [place] [address]- 7596 Apr, Bipolar I disorder, most recent episode (or current) mixed, moderate F31.62 [facility] [address], [place] [address]- 8156 Apr, Chronic pain G89.29 [facility] [id number] [place] [address] 20345- 6416 Apr, Iliotibial band syndrome, left M76.32 [facility] [address] [place] [address] 34663- 2780 Apr, Bipolar I disorder, most recent episode (or current) mixed, moderate F31.62 [facility] [address] [place] [address] 74496- 0529 Mar, Bipolar I disorder, most recent episode (or current) mixed, moderate F31.62 [facility] [address] [place] [address] 15271- 5513 Mar, Bipolar I disorder, most recent episode (or current) mixed, moderate F31.62 [facility] [address] [place] [address] 47079- 2369 Mar, [facility] [address] [place] [address] 17794- 5217 Mar, Bipolar I disorder, most recent episode (or current) mixed, moderate F31.62 [facility] [address], [place] [address]- 2360 Mar, Chronic pain G89.29 [facility] [address] [place] [address] 24005- 6894 Mar, Bipolar I disorder, most recent episode (or current) mixed, moderate F31.62 [facility] [address], [place] [address]- 2049 Mar, Bipolar I disorder, most recent episode (or current) mixed, moderate F31.62 [facility] [address] [place] [address] 10360- 0014 Mar, Acute pain of left knee M25.562 ; Left hip pain M25.552 ; Generalized edema R60.1 and Tongue swelling R22.0 [facility] [address] [place] [id number] [place] [address] 89058- 3192 Mar, [facility] [address] [place] [id number] [place] [address] 75860- 1174 Feb, Chronic pain G89.29 [facility] [address] 99750- 5587 Feb, Diabetes E11.9 [facility] [address] [place] [id number] [place] [address] 27788- 6808 January, Chronic pain G89.29 [facility] [address] [place] [id number] [place] [address] 16191- 4880 January, [facility] [address] [place] [address] [id number] [place] [address] 37062- 8124 January, Bipolar I disorder, most recent episode (or current) mixed, moderate F31.62 [facility] [address] [place] [id number] [place] [address] 02783- 3155 Dec, Bipolar I disorder, most recent episode (or current) mixed, moderate F31.62 [facility] [address] [place] [id number] [place] [address] 58405- 0320 Dec, Chronic pain G89.29 [facility] [address] [place] [id number] [place] [address] 24562- 1406 Dec, Bipolar I disorder, most recent episode (or current) mixed, moderate F31.62 [facility] [address] [place] [id number] [place] [address] 56345- 2038 Dec, Diabetes E11.9 ; Essential hypertension I10 ; Chronic pain G89.29 and Morbid obesity E66.01 [facility] [address] [place] [address]- 9276 Dec, [facility] [address], [place] [address]- 7106 Dec, Bipolar I disorder, most recent episode (or current) mixed, moderate F31.62 [facility] [address] 0756 Dec, Bipolar I disorder, most recent episode (or current) mixed, moderate F31.62 [facility] [address], [place] [address]- 1366 Nov, Chronic pain G89.29 [facility] [address] [id number] [place] [address] 89907- 7377 Nov, Bipolar I disorder, most recent episode (or current) mixed, moderate F31.62 [facility] [address], [place] [address]- 6586 Nov, [facility] [id number], [place] [address]- 8512 Nov, Bipolar I disorder, most recent episode (or current) mixed, moderate F31.62 [facility] [address], [place] [address]- 6544 Nov, Bipolar I disorder, most recent episode (or current) mixed, moderate F31.62 [facility] [address], [place] [address]- 1756 Nov, [facility] [address], [place] [address]- 2546 Nov, [facility] [address], [place] [address]- 7646 Nov, [facility] [address], [place] [address]- 7266 Oct, Chronic pain G89.29 [facility] [address], [place] [address]- 8696 Oct, Bipolar I disorder, most recent episode (or current) mixed, moderate F31.62 [facility] [id number] [place] [address] 92473- 7106 Oct, [facility] [id number] [place] [address] 51646- 9556 15 Oct, 2016 Chronic pain G89.29 ; Diabetes E11.9 ; Anxiety F41.9 and 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 [facility] [id number] [place] [address] 71544- 7117 Oct, [facility] [id number] [place] [address] 25841- 0448 Oct, Diabetes E11.9 [facility] [id number] [place] [address] 35611- 1636 Oct, Bipolar I disorder, most recent episode (or current) mixed, moderate F31.62 [facility] [id number] [place] [address] 94906- 2320 Sep, Chronic pain G89.29 [facility] [id number] [place] [address] 37758- 9025 Sep, Chronic pain G89.29 [facility] [address] [id number] [place] [address] 54440- 3616 Aug, Chronic pain G89.29 [facility] [id number] [place] [address] 58408- 2069 Jul, [facility] [id number] [place] [address] 72278- 0239 Jul, Diabetes E11.9 [facility] [id number] [place] [address] 63738- 4330 Jul, Chronic pain G89.29 [facility] [id number] [place] [address] 81674- 7409 Jul, Bipolar I disorder, most recent episode (or current) mixed, moderate F31.62 [facility] [id number] [place] [address] 35903- 1630 Jun, Bipolar I disorder, most recent episode (or current) mixed, moderate F31.62 [facility] [id number] [place] [address] 24831- 5981 Jun, [facility] [address] 03147- 3030 Jun, Bipolar I disorder, most recent episode (or current) mixed, moderate F31.62 [facility] [address] [place] [address] [id number] [place] [address] 37234- 1447 30 May, 2016 Insomnia, unspecified type G47.00 [facility] [address] [place] [id number] [place] [address] 73532- 0145 May, Bipolar I disorder, most recent episode (or current) mixed, moderate F31.62 [facility] [id number] [place] [address] 21234- 1300 14 May, 2016 [facility] [address] 93593- 3078 08 May, 2016 Bipolar I disorder, most recent episode (or current) mixed, moderate F31.62 [facility] [id number] [place] [address] 66607- 8686 May, Diabetes E11.9 and Essential hypertension I10 [facility] [id number] [place] [address] 99010- 1561 Apr, Chronic pain G89.29 [facility] [address] 01002- 5004 Apr, Bipolar I disorder, most recent episode (or current) mixed, moderate F31.62 [facility] [id number] [place] [address] 74310- 9177 Apr, [facility] [address] 80389- 2343 Apr, [facility] [address] [place] [address] [id number] [place] [address] 03960- 8953 Mar, Chronic pain G89.29 ; Headache, unspecified headache type R51 ; Neuropathy G62.9 ; Pain of right hip joint M25.551 and Essential hypertension I10 [facility] [address] [place] [address] [id number] [place] [address] 51015- 7468 Mar, Chronic pain G89.29 [facility] [address] 76795- 7984 Mar, Bipolar I disorder, most recent episode (or current) mixed, moderate F31.62 [facility] [address] [place] [id number] [place] [address] 20176- 5975 Feb, Bipolar I disorder, most recent episode (or current) mixed, moderate F31.62 and Insomnia, unspecified type G47.00 [facility] [address] [place] [address] [id number] [place] [address] 37403- 7994 Feb, Chronic pain G89.29 [facility] [address] [place] [address] [id number] [place] [address] 34006- 0825 Feb, Bipolar I disorder, most recent episode (or current) mixed, moderate F31.62 [facility] [address] [place] [id number] [place] [address] 27132- 9583 January, Bipolar I disorder, most recent episode (or current) mixed, moderate F31.62 [facility] [address] [place] [address] [id number] [place] [address] 22653- 3783 January, Chronic pain G89.29 [facility] [address] [place] [address] [id number] [place] [address] 85479- 3300 January, Chronic pain G89.29 and Essential hypertension I10 [facility] [address] [place] [address] [id number] [place] [address] 00010- 8209 January, Bipolar I disorder, most recent episode (or current) mixed, moderate F31.62 [facility] [address], [place] [address]- 0847 Dec, [facility] [id number] [place] [address] 19077- 1148 Dec, [facility] [id number] [place] [address] 91970- 6039 Dec, [facility] [id number] [place] [address] 21481- 7712 Dec, [facility] [id number] [place] [address] 38649- 2560 Nov, Reactive airway disease J45.909 [facility] [id number] [place] [address] 22892- 0074 Nov, [facility] [id number] [place] [address] 70979- 8960 Nov, [facility] [id number] [place] [address] 01871- 8075 Nov, [facility] [id number] [place] [address] 22224- 6733 Nov, [facility] [id number] [place] [address] 58155- 2160 Nov, Onychomycosis B35.1 ; Hammertoe M20.40 ; [place] or callus L84 and DM neuro manif type II E11.49 [facility] [id number] [place] [address] 22886- 3869 Nov, Chronic pain G89.29 ; Leukocytosis D72.829 and Diabetes E11.9 [facility] [id number] [place] [address] 48790- 1389 Nov, [facility] [id number] [place] [address] 39255- 7357 Oct, Bronchitis J40 [facility] [id number] [place] [address] [phone]- 4341 Oct, [facility] [id number] [place] [address] 57066- 4127 Oct, [facility] [id number] [place] [address] 05298- 1257 Oct, Mastoiditis, unspecified laterality H70.90 and Type 2 diabetes mellitus with complication E11.8 [facility] [id number] [place] [address] 75491- 1041 Sep, [facility] [id number] [place] [address] 10374- 4861 Sep, Dysuria R30.0 ; Cough R05 ; Benign prostatic hyperplasia with lower urinary tract symptoms, unspecified morphology N40.1 ; Hypokalemia E87.6 and Eustachian tube dysfunction, unspecified laterality H69.80 [facility] [id number] [place] [address] 78593- 7230 Sep, Moderate mixed bipolar I disorder F31.62 [facility] [id number] [place] [address] 19213- 6796 Sep, Hypokalemia E87.6 [facility] [id number] [place] [address] 88743- 1246 Sep, [facility] [id number] [place] [address] [phone]- 2027 Sep, Upper respiratory tract infection, unspecified type J06.9 [facility] [id number] [place] [address] 76222- 0293 Aug, [facility] [id number] [place] [address] 30277- 0169 Aug, Dysuria R30.0 [facility] [id number] [place] [address] 43033- 5870 Aug, [facility] [id number] [place] [address] [phone]- [phone] Jul, [facility] [facility] [id number], [place] [address] Jul, [facility] [address], [place] [address] 1469 Jul, [facility] [address], [place] [address] 6[address] Jul, [facility] [id number] [place] [address] 72568- 3144 Jun, [facility] [address], [place] [address] 8429 Jun, [facility] [address], [place] [address] 9426 Jun, [facility] [id number] [place] [address] 92336- 7713 May, [facility] [id number] [place] [address] 20301- 3912 May, Bipolar I disorder, most recent episode (or current) mixed, moderate 296.62 [facility] [address], [place] [address] 8684 16 May, 2015 [facility] [id number], [place] [address] 3592 May, Bipolar I disorder, most recent episode (or current) mixed, moderate 296.62 and Major depressive disorder, recurrent episode, severe, specified as with psychotic behavior 296.34 [facility] [address], [place] [address] 4079 May, Bipolar I disorder, most recent episode (or current) mixed, moderate 296.62 [facility] [id number] 3834 May, [facility] [address], [place] [address]- 6144 Apr, [facility] [id number], [place] [address] 1552 Apr, [facility] [id number] [place] [address] 00165- 6910 Apr, Unspecified disorder of kidney and ureter 593.9 and Diabetes mellitus type 2, uncontrolled 250.02 [facility] [id number] [place] [address] 20504- 1894 Apr, [facility] [id number] [place] [address] 54552- 2771 Apr, [facility] [id number] [place] [address] 67632- 6608 Apr, [facility] [id number] [place] [address] 81377- 7259 Apr, [facility] [id number] [place] [address] 06124- 3537 Apr, Diabetes mellitus type II, uncontrolled 250.02 [facility] [id number] [place] [address] 86373- 6253 Apr, [facility] [id number] [place] [address] 27048- 7117 Mar, [facility] [id number] [place] [address] 33613- 6665 Mar, [facility] [id number] [place] [address] 30357- 9486 Mar, [facility] [id number] [place] [address] 86805- 6117 Mar, Major depressive disorder, recurrent episode, severe, specified as with psychotic behavior 296.34 and Bipolar I disorder, most recent episode (or current) mixed, moderate 296.62 [facility] [id number] [place] [address] 94628- 9412 Mar, Diabetes 250.00 ; Anuria 788.5 ; Nausea and vomiting 787.01 and Diarrhea 787.91 [facility] [id number], [place] [address]- 3433 Mar, Diabetes 250.00 [facility] [id number] [place] [address] 86551- 9530 Mar, [facility] [id number] [place] [address] 88849- 9569 Mar, Diabetes 250.00 [facility] [id number] [place] [address] 38395- 8893 Mar, [facility] [id number] [place] [address] 09633- 1545 Mar, [facility] [id number] [place] [address] 69308- 5748 Mar, [facility] [id number] [place] [address] 65190- 1581 Mar, [facility] [id number] [place] [address] 31827- 4053 Mar, Bipolar I disorder, most recent episode (or current) mixed, moderate 296.62 and Major depressive disorder, recurrent episode, severe, specified as with psychotic behavior 296.34 [address] [id number] [place] [address] 76987- 2876 Mar, Magnesium deficiency 275.2 ; Hypokalemia 276.8 ; Nausea & vomiting 787.01 and Diabetes mellitus type 2, uncontrolled 250.02 [facility] [id number] [place] [address] 84004- 8834 Feb, [facility] [id number] [place] [address] 49116- 7213 Feb, Bipolar I disorder, most recent episode (or current) mixed, moderate 296.62 [facility] [id number] [place] [address] 84348- 8399 Feb, Nausea and vomiting 787.01 ; Left elbow pain 719.42 ; Anuria 788.5 and Diabetes 250.00 [facility] [address], [place] [address]- 3622 Feb, [facility] [id number] [place] [address] 89934- 7571 Feb, Hypopotassemia 276.8 and Hypokalemia 276.8 [facility] [address], [place] [address]- 3379 Feb, Hypopotassemia 276.8 and Hypokalemia 276.8 [facility] [id number], [place] [address]- 0376 Feb, Seborrheic keratoses 702.19 [facility] [id number] [place] [address] 76930- 6493 Feb, Hypopotassemia 276.8 and Low magnesium levels 275.2 [facility] [id number] [place] [address] 63197- 0411 January, [facility] [address], [place] [address]- 5734 January, [facility] [id number] [place] [address] 16611- 8741 January, [facility] [address], [place] [address]- 1903 January, Scalp lesion 709.9 [facility] [id number] [place] [address] 23552- 7843 January, [facility] [id number], [place] [address]- 0548 Dec, Tear of medial cartilage or meniscus of knee, current 836.0 and 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 [facility] [id number], [place] [address]- 3474 Dec, [facility] [id number], [place] [address]- 2679 Dec, [facility] [id number] [place] [address]- 1893 28 Dec, 2014 Squamous cell carcinoma, 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 [facility] [place] [facility] [address] [id number] [place] [address]- 8960 14 Dec, 2014 [facility] [place] [facility] [address] [id number] [place] [address]- 9600 13 Dec, 2014 [facility] [place] [facility] [address] [id number] [place] [address]- 2350 27 Nov, 2014 [facility] [place] [facility] [address] [id number] [place] 2[address] Nov, [facility] [place] [facility] [address] [id number] [place] [address]- 2791 Nov, [facility] [place] [facility] [address] [facility] [id number] [place] [address]- 6291 Nov, [facility] [place] [facility] [address] [id number] [place] [address]- 8012 Nov, [facility] [place] [facility] [address] [facility] [id number] [place] [address]- 8493 Nov, [facility] [place] [facility] [address] [facility] [id number] [place] [address]- 9883 Nov, [facility] [place] [facility] [address] [facility] [id number] [place] [address]- 6112 Nov, [facility] [place] [facility] [address] [id number] [address]- 7146 Nov, [facility] [place] [facility] [address] [id number] [place] 0596 Nov, [facility] [place] [facility] [address] [id number] [place] [address]- 8933 Nov, [facility] [place] [facility] [address] [facility] [id number], [place] [address]- 2461 Nov, [facility] [place] [facility] [address] [facility] [id number], [place] [address]- 0290 Oct, 2014 [facility] [place] [facility] [address] [id number] [place] [address]- 0776 Oct, 2014 [facility] [place] [facility] [address] [id number] [place] [address]- 8216 Oct, 2014 [facility] [place] [facility] [address] [facility] [id number] [place] [address]- 3193 Oct, 2014 [facility] [place] [facility] [address] [facility] [id number] [place] [address]- 3026 Oct, 2014 [facility] [place] [facility] [address] [id number] [place] [address]- 6732 Oct, 2014 [facility] [place] [facility] [address] [facility] [id number] [place] [address]- 1085 Oct, 2014 [facility] [place] [facility] [address] [facility] [id number] [place] [address]- 0796 Oct, 2014 [facility] [place] [facility] [address] [facility] [id number] [place] [address]- 3329 Oct, [facility] [place] [facility] [id number] [place] [address]- 8153 Sep, [facility] [place] [facility] [address] [facility] [id number] [place] [address]- 7585 Sep, [facility] [place] [facility] [address] [facility] [id number] [place] [address]- 4043 Sep, [facility] [place] [facility] [address] [facility] [id number], [place] [address]- 9421 Sep, [facility] [place] [facility] [address] [facility] [id number] [place] [address]- 1861 Sep, [facility] [place] [facility] [address] [facility] [id number] [place] [address]- 7475 Sep, [facility] [place] [facility] [address] [facility] [id number], [place] [address]- 0202 Sep, [facility] [place] [facility] [address] [id number] [place] [address]- 2571 Sep, [facility] [place] [facility] [address] [id number] [place] [address]- 2447 Sep, [facility] [place] [facility] [address] [id number] [place] [address]- 5677 Sep, [facility] [place] [facility] [address] [id number] [place] [address]- 2648 Sep, [facility] [place] [facility] [address] [id number] [place] [address]- 6866 Sep, [facility] [place] [facility] [address] [id number] [place] [address]- 1625 Sep, [facility] [place] [facility] [address] [id number] [place] [address]- 4561 Sep, [facility] [place] [facility] [address] [id number] [place] [address]- 4757 Sep, [facility] [place] [facility] [address] [id number] [place] [address]- 5973 Sep, [facility] [place] [facility] [address] [id number] [place] [address]- 8822 Aug, [facility] [place] [facility] [address] [id number] [place] [address]- 6010 Aug, [facility] [place] [facility] [address] [id number], [place] [address]- 9032 Aug, [facility] [place] [facility] [address] [id number] [place] [address]- 5398 Aug, [facility] [place] [facility] [address] [id number] [place] [address]- 6510 Aug, [facility] [place] [facility] [address] [id number] [place] [address]- 0536 Aug, [facility] [place] [facility] [address] [id number] [place] [address]- 8135 Aug, [facility] [address] [id number] [place] [address]- 9522 Aug, [facility] [address] [id number] [place] [address]- 8131 Aug, [facility] [address] [id number] [place] [address]- 7302 Aug, [facility] [address] [id number] [place] [address]- 2031 Aug, [facility] [address] [place] [id number] Aug, [facility] [address] [id number] [place] [address]- 4406 Aug, [facility] [address] [id number] [place] [address]- 0147 Aug, [facility] [address] [id number] [place] [address]- 1831 Aug, [facility] [address] [id number] [place] [address]- 7662 Aug, [facility] [address] [id number] [place] [address]- 5001 Aug, [facility] [address] [id number] [place] [address]- 4133 Aug, [facility] [place] [facility] [address] [id number] [place] [address]- 7331 Aug, [facility] [place] [facility] [address] [id number] [place] [address]- 6803 Aug, [facility] [address] [id number] [place] [address]- 9721 Aug, [facility] [address] [id number] [place] [address]- 4037 Aug, [facility] [address] [id number] [place] [address]- 9324 03 Aug, 2014 [facility] [place] [facility] [address] [id number] [place] [address]- 5831 Aug, [facility] [place] [facility] [address] [id number] [place] 7503 Aug, [facility] [place] [facility] [address] [id number] [place] 3067 Aug, [facility] [place] [facility] [address] [id number] [place] [address]- 8874 Aug, [facility] [place] [facility] [address] [id number] [place] [address]- 2696 Aug, [facility] [place] [facility] [address] [id number] [place] [address]- 6943 Aug, [facility] [place] [facility] [address] [id number] [place] [address]- 2672 Aug, [facility] [place] [facility] [address] [id number] [place] [address]- 2171 Jul, [facility] [place] [facility] [address] [id number] [place] [address]- 5408 Jul, [facility] [place] [facility] [address] [facility] [id number] [place] [address]- 6079 Jul, [facility] [place] [facility] [address] [id number] [place] [address]- 7656 Jul, [facility] [place] [facility] [address] [id number] [place] [address]- 3558 Jul, [facility] [place] [facility] [address] [id number] [place] [address]- 8178 Jul, [facility] [place] [facility] [address] [id number] [place] [address]- 7402 Jul, [facility] [place] [facility] [address] [id number] [place] [address]- 4793 Jul, [facility] [place] [facility] [address] [id number] [place] [address]- 7217 Jul, [facility] [place] [facility] [address] [id number] [place] [address]- 0433 Jul, [facility] [place] [facility] [address] [id number] [place] [address]- 9160 Jun, [facility] [place] [facility] [address] [id number] [place] [address]- 9903 Jun, [facility] [place] [facility] [address] [id number] [place] [address]- 8234 Jun, [facility] [place] [facility] [address] [id number] [place] [address]- 4040 Jun, [facility] [place] [facility] [address] [id number] [place] [address]- 9268 Jun, [facility] [place] [facility] [address] [id number] [place] [address]- 3390 Jun, [facility] [place] [facility] [address] [id number] [place] [address]- 0267 Jun, [facility] [place] [facility] [address] [id number] [place] [address]- 4939 Jun, [facility] [place] [facility] [address] [id number] [place] [address]- 0219 Jun, [facility] [place] [facility] [address] [id number] [place] [address]- 9938 Jun, [facility] [place] [facility] [address] [id number] [place] [address]- 7569 May, [facility] [place] [facility] [address] [id number] [place] [address]- 6819 29 May, 2014 [facility] [place] [facility] [address] [id number] [place] [address]- 5360 May, [facility] [place] [facility] [address] [id number] [place] [address]- 2632 26 May, 2013 [facility] [place] [facility] [address] [id number] [place] [address] 2546 17 May, 2013 [facility] [place] [facility] [address] [id number] [place] [address] 2546 17 May, 2013 [facility] [place] [facility] [address] [id number] [place] [address] 2546 15 May, 2013 [facility] [place] [facility] [address] [id number] [place] [address] 2546 15 May, 2013 [facility] [place] [facility] [address] [id number] [place] [address] 2547 15 May, 2013 [facility] [place] [facility] [address] [id number] [place] [address]- 9320 15 May, 2013 [facility] [place] [facility] [address] [id number] [place] [address]- 6698 10 May, 2013 [facility] [place] [facility] [address] [id number] [place] [address]- 5763 10 May, 2013 [facility] [place] [facility] [address] [id number] [place] [address] 2543 09 May, 2013 [facility] [place] [facility] [address] [id number] [place] [address]- 2547 09 May, 2013 [facility] [place] [facility] [address] [id number] [place] [address] 2540 04 May, 2013 [facility] [place] [facility] [address] [id number] [place] [address]- 2543 May, 2013 [facility] [place] [facility] [address] [id number] [place] [address]- 2548 Apr, [facility] [place] [facility] [address] [id number] [place] [address]- 6082 Apr, [facility] [place] [facility] [address] [id number] [place] [address]- 1786 Apr, [facility] [place] [facility] [address] [id number] [place] [address]- 0861 Apr, [facility] [place] [facility] [address] [id number] [facility] [place] [address]- 9342 Apr, [facility] [place] [facility] [address] [id number] [place] [address]- 4125 Apr, [facility] [place] [facility] [address] [id number] [place] [address]- 5421 Apr, [facility] [place] [facility] [address] [id number] [place] [address]- 6022 Apr, [facility] [place] [facility] [address] [id number] [place] [address]- 8526 Apr, [facility] [place] [facility] [address] [id number] [place] [address]- 2072 Apr, [facility] [place] [facility] [address] [id number] [place] [address]- 7676 Apr, [facility] [place] [facility] [address] [id number] [place] [address]- 5077 Apr, [facility] [place] [facility] [address] [id number] [place] [address]- 6702 Apr, [facility] [place] [facility] [address] [id number] [place] [address]- 1199 Apr, [facility] [place] [facility] [address] [id number] [place] [address]- 7371 Apr, [facility] [place] [facility] [address] [id number] [place] [address]- 4699 Mar, [facility] [place] [facility] [address] [id number] [place] [address]- 0981 Mar, [facility] [place] [facility] [address] [id number] [place] [address]- 0402 Mar, [facility] [place] [facility] [address] [id number] [place] [address]- 8218 Mar, [facility] [place] [facility] [address] [id number] [place] [address]- 0529 Mar, 2013 [facility] [place] [facility] [address] [id number] [place] [address]- 3577 Mar, 2013 [facility] [place] [facility] [address] [id number] [place] [address]- 1612 Mar, 2013 [facility] [place] [facility] [address] [id number] [place] [address]- 5718 Mar, 2013 [facility] [place] [facility] [address] [id number] [place] [address]- 3618 Mar, 2013 [facility] [place] [facility] [address] [id number] [place] [address]- 1382 Mar, 2013 [facility] [place] [facility] [address] [id number] [place] [address]- 4179 Mar, 2013 [facility] [place] [facility] [address] [id number] [place] [address]- 3792 Mar, 2013 [facility] [place] [facility] [address] [id number] [place] [address] Mar, 2013 [facility] [place] [facility] [address] [id number] [place] [address] Mar, 2013 [facility] [place] [facility] [address] [id number] [place] [address] Mar, 2013 [facility] [place] [facility] [address] [id number] [place] [address] Mar, 2013 [facility] [place] [facility] [address] [id number] [place] [address] Mar, 2013 [facility] [place] [facility] [address] [id number] [place] [address] Mar, [facility] [place] [facility] [address] [id number] [place] [address] Feb, [facility] [place] [facility] [address] [id number] [address] Feb, [facility] [place] [facility] [address] [id number] [place] [address] Feb, [facility] [place] [facility] [address] [id number] [place] [address] Feb, [facility] [place] [facility] [address] [id number] [place] [address] Feb, [facility] [place] [facility] [address] [id number] [place] [address] Feb, [facility] [place] [facility] [address] [id number] [place] [address] Feb, [facility] [place] [facility] [address] [id number] [place] [address] Feb, [facility] [place] [facility] [address] [id number] [place] [address] Feb, [facility] [place] [facility] [address] [id number] [place] [address] Feb, [facility] [place] [facility] [address] [id number] [place] [address] Feb, [facility] [place] [facility] [address] [id number] [place] [address] Feb, [facility] [place] [facility] [address] [id number] [place] [address] Feb, [facility] [place] [facility] [address] [id number] [place] [address] Feb, [facility] [place] [facility] [address] [id number] [place] [address] January, [facility] [place] [facility] [address] [id number] [place] [address] January, [facility] [place] [facility] [address] [id number] [place] [address] January, [facility] [place] [facility] [address] [id number] [place] [address] January, [facility] [place] [facility] [address] [id number] [place] [address]14 January, [facility] [place] [facility] [address] [id number] [place] [address]- [address] January, [facility] [place] [facility] [address] [id number] [place] [address] 88[address] January, [facility] [place] [facility] [address] [id number] [place] [address] January, [facility] [place] [facility] [address] [id number] [place] [address]- [address] January, [facility] [place] [facility] [address] [id number] [place] [address] January, [facility] [place] [facility] [address] [id number] [place] [address] January, [facility] [place] [facility] [address] [id number] [place] [address] January, [facility] [place] [facility] [address] [id number] [place] [address] January, [facility] [place] [facility] [address] [id number] [place] [address] January, [facility] [place] [facility] [address] [id number] [place] [address] Dec, [facility] [place] [facility] [address] [id number] [place] [address] Dec, [facility] [place] [facility] [address] [id number] [place] [address] Dec, [facility] [place] [facility] [address] [id number] [place] [address] Dec, [facility] [place] [facility] [address] [id number] [place] [address] Dec, [facility] [place] [facility] [address] [id number] [place] [address] Dec, [facility] [place] [facility] [address] [id number] [place] [address] Dec, [facility] [place] [facility] [address] [id number] [place] [address] Dec, [facility] [place] [facility] [address] [id number] [place] [address] Dec, [facility] [place] [facility] [address] [id number] [place] [address]67 Dec, [facility] [place] [facility] [address] [id number] [place] [address] Nov, [facility] [place] [facility] [address] [id number] [place] [address] Nov, [facility] [place] [facility] [address] [id number] [place] [address] Nov, [facility] [place] [facility] [address] [id number] [place] [address] Nov, [facility] [place] [facility] [address] [id number] [place] [address] Nov, [facility] [place] [facility] [address] [id number] [place] [address] Nov, [facility] [place] [facility] [address] [id number] [place] [address]- [address] Nov, [facility] [place] [facility] [address] [id number] [place] [address] 39[address] Nov, [facility] [place] [facility] [address] [id number] [place] [address]- 16[address] Nov, [facility] [place] [facility] [address] [id number] [place] [address]- [address] Nov, [facility] [place] [facility] [address] [id number] [place] [address] 47[address] Oct, [facility] [place] [facility] [address] [id number] [place] [address] Oct, [facility] [place] [facility] [address] [id number] [place] [address]- [address] Oct, [facility] [place] [facility] [address] [id number] [place] [address] Oct, [facility] [place] [facility] [address] [id number] [place] [address] Oct, [facility] [place] [facility] [address] [id number] [place] [address] 2314 Oct, [facility] [place] [facility] [address] [facility] [id number] [place] [address] 5790 Oct, [facility] [place] [facility] [address] [facility] [id number] [place] [address] 0302 Oct, [facility] [place] [facility] [address] [facility] [id number] [place] [address]- 5649 Oct, [facility] [place] [facility] [address] [facility] [id number] [place] [address] 3746 Oct, [facility] [place] [facility] [address] [facility] [id number] [place] [address] 8810 Oct, [facility] [place] [facility] [address] [facility] [id number], [place] [address] 96[address] Oct, [facility] [place] [facility] [address] [facility] [id number] [place] [address] 2167 Oct, [facility] [place] [facility] [address] [facility] [id number] [place] [address]- 1345 Oct, [facility] [place] [facility] [address] [facility] [id number] [place] [address]- 5849 Sep, [facility] [place] [facility] [address] [facility] [id number], [place] [address]- 6108 Sep, [facility] [address] [id number] [place] [address]- 5664 15 Sep, 2013 [facility] [place] [facility] [address] [id number] [place] [address]- 0742 15 Sep, 2013 [facility] [place] [facility] [address] [id number] [place] [address]- 7475 Sep, [facility] [place] [facility] [address] [id number] [place] [address] 1953 Sep, [facility] [place] [facility] [address] [id number] [place] [address]- 4773 Sep, [facility] [place] [facility] [address] [id number] [place] [address]- 2402 Sep, [facility] [place] [facility] [address] [id number] [place] [address]- 2834 Sep, [facility] [place] [facility] [address] [id number] [place] [address]- 9998 Sep, [facility] [place] [facility] [address] [id number] [place] [address]- 0613 Aug, [facility] [place] [facility] [address] [id number] [place] [address]- 7490 Aug, [facility] [place] [facility] [address] [id number] [place] [address]- 0556 Jul, [facility] [place] [facility] [address] [id number] [place] [address]- 8515 Jul, [facility] [place] [facility] [address] [id number] [place] [address]- 2836 Jul, [facility] [place] [facility] [address] [id number] [place] [address]- 7172 Jul, [facility] [place] [facility] [address] [id number] [place] [address]- 9249 Jul, [facility] [place] [facility] [address] [id number] [place] [address]- 0731 13 Jul, 2013 [facility] [place] [facility] [address] [id number] [place] [address]- 3841 Jul, [facility] [place] [facility] [address] [id number] [place] [address]- 8059 Jul, [facility] [place] [facility] [address] [id number] [place] [address]- 9328 Jul, [facility] [place] [facility] [address] [id number] [place] [address]- 6411 Jul, [facility] [place] [facility] [address] [id number] [place] [address]- 7668 Jul, [facility] [place] [facility] [address] [id number] [place] [address]- 3564 Jul, [facility] [place] [facility] [address] [id number] [place] [address]- 7363 Jul, [facility] [place] [facility] [address] [id number] [place] [address]- 1978 Jul, [facility] [place] [facility] [address] [id number] [place] [address]- 4717 Jul, [facility] [place] [facility] [address] [id number] [place] [address]- 6542 Jul, [facility] [place] [facility] [address] [id number] [place] [address]- 4512 Jul, [facility] [place] [facility] [address] [id number] [place] [address]- 6401 Jul, [facility] [place] [facility] [address] [id number] [place] [address]- 6126 Jul, [facility] [place] [facility] [address] [id number] [place] [address]- 6610 Jun, [facility] [place] [facility] [address] [id number] [place] [address]- 3996 Jun, [facility] [place] [facility] [address] [id number] [place] [address]- 1036 16 Jun, 2012 [facility] [place] [facility] [address] [id number] [place] [address]- 3581 16 Jun, 2012 [facility] [place] [facility] [address] [id number] [place] [address]- 5256 16 Jun, 2012 [facility] [place] [facility] [address] [id number] [place] [address]- 7797 16 Jun, 2012 [facility] [place] [facility] [address] [id number] [place] [address]- 3802 10 Jun, 2012 [facility] [place] [facility] [address] [id number] [place] [address]- 4280 10 Jun, 2013 [facility] [place] [facility] [address] [id number] [place] [address]- 4533 Jun, [facility] [place] [facility] [address] [id number], [place] [address]- 6033 09 Jun, 2013 [facility] [place] [facility] [address] [id number] [place] [address]- 3347 Jun, [facility] [place] [facility] [address] [id number], [place] [address]- 3667 26 Sep, 2012 [facility] [place] [facility] [address] [id number], [place] [address]- 8119 25 Sep, 2012 [facility] [place] [facility] [address] [id number], [place] [address]- 5746 19 Sep, 2012 [facility] [place] [facility] [address] [id number] [place] [address]- 8602 17 Sep, 2012 [facility] [place] [facility] [address] [id number], [place] [address]- 1887 11 Sep, 2012 [facility] [place] [facility] [address] [id number], [place] [address]- 6647 10 Sep, 2012 [facility] [place] [facility] [address] [id number] [place] [address]- 1027 May, [facility] [place] [facility] [address] [id number] [place] [address]- 3266 May, [facility] [place] [facility] [address] [id number] [place] [address]- 3132 Apr, [facility] [place] [facility] [address] [id number] [place] [address]- 5603 Apr, [facility] [place] [facility] [address] [id number] [place] [address]- 7731 Apr, [facility] [place] [facility] [address] [id number] [place] [address]- 2430 Apr, [facility] [place] [facility] [address] [id number] [place] [address]- 5526 Apr, [facility] [place] [facility] [address] [id number] [place] [address]- 0872 Mar, [facility] [place] [facility] [address] [id number] [place] [address]- 3719 Mar, [facility] [place] [facility] [address] [id number] [place] [address]- 5247 Mar, [facility] [place] [facility] [address] [id number] [place] [address]- 6374 Mar, [facility] [place] [facility] [address] [id number] [place] [address]- 0599 Mar, [facility] [place] [facility] [address] [id number] [place] [address]- 9878 Mar, [facility] [place] [facility] [address] [id number] [place] [address]- 8924 Mar, [facility] [place] [facility] [address] [id number] [place] [address]- 0833 Mar, [facility] [place] [facility] [address] [id number] [place] [address]- 3693 Feb, [facility] [place] [facility] [address] [id number] [place] [address]- 9065 Feb, [facility] [place] [facility] [address] [id number] [place] [address]- 7070 January, [facility] [place] [facility] [address] [id number] [place] [address]- 4979 January, [facility] [place] [facility] [address] [id number] [place] [address]- 4047 Dec, [facility] [place] [facility] [address] [id number] [place] [address]- 2583 Dec, [facility] [place] [facility] [address] [id number] [place] [address]- 6906 Nov, [facility] [address] [facility] [id number] [place] [address]- 1184 Nov, [facility] [place] [facility] [address] [id number] [place] [address]- 7468 Nov, [facility] [place] [facility] [address] [id number] [place] [address]- 7273 Nov, [facility] [place] [facility] [address] [id number] [place] [address]- 2926 Oct, [facility] [place] [facility] [address] [facility] [id number] [place] [address]- 4175 Oct, [facility] [place] [facility] [address] [id number], [place] [address]- 0930 Oct, [facility] [place] [facility] [address] [id number] [place] [address]- 0766 Oct, [facility] [place] [facility] [address] [id number] [place] [address]- 0596 16 Oct, 2012 [facility] [place] [facility] [address] [id number] [place] [address]- 2521 14 Oct, 2012 [facility] [place] [facility] [address] [id number], [place] [address]- 5355 08 Oct, 2012 [facility] [address] [id number] [place] [address]- 4746 07 Oct, 2012 [facility] [address] [id number] [place] [address]- 9365 03 Oct, 2012 [facility] [address] [id number] [place] [address]- 8276 30 Sep, 2012 [facility] [address] [id number] [place] [address]- 9618 29 Sep, 2012 [facility] [address] [id number] [place] [address]- 1514 Sep, [facility] [address] [id number] [place] [address]- 4151 Sep, [facility] [address] [id number] [place] [address]- 9139 17 Sep, 2012 [facility] [address] [id number] [place] [address]- 4857 Sep, [facility] [address] [id number] [place] [address]- 6004 Sep, [facility] [address] [id number] [place] [address]- 9344 08 Sep, 2012 [facility] [address] [id number] [place] [address]- 0224 Aug, [facility] [address] [id number] [place] [address]- 8683 Aug, [facility] [address] [id number] [place] [address]- 6114 Aug, [facility] [address] [id number] [place] [address]- 0169 Aug, [facility] [address] [id number] [place] [address]- 7672 Aug, [facility] [place] [facility] [address] [id number] [place] [address]- 6383 Aug, [facility] [place] [facility] [address] [id number] [place] [address]- 9215 Aug, [facility] [place] [facility] [address] [id number] [place] [address]- 7712 Aug, [facility] [place] [facility] [address] [id number] [place] [address], [place] [address]- 9448 Jul, [facility] [place] [facility] [address] [id number] [place] [address]- 9292 Jul, [facility] [place] [facility] [address] [id number] [place] [address]- 3329 Jul, [facility] [place] [facility] [address] [id number] [place] [address]- 8066 Jul, [facility] [place] [facility] [address] [id number] [place] [address]- 2166 Jul, [facility] [place] [facility] [address] [id number] [place] [address]- 2999 Jul, [facility] [place] [facility] [address] [id number] [place] [address]- 2261 Jun, [facility] [place] [facility] [address] [id number] [place] [address]- 0245 Jun, [facility] [place] [facility] [address] [id number], [place] [address]- 6106 Jun, [facility] [place] [facility] [address] [id number] [place] [address]- 5628 Jun, [facility] [place] [facility] [address] [id number] [place] [address]- 8698 Jun, [facility] [place] [facility] [address] [id number] [place] [address]- 1880 Jun, [facility] [place] [facility] [address] [id number] [place] [address]- 4596 Jun, [facility] [place] [facility] [address] [id number] [place] [address]- 2948 10 Jun, 2012 [facility] [place] [facility] [address] [id number] [place] [address]- 0059 Jun, [facility] [place] [facility] [address] [id number] [place] [address]- 1926 26 May, 2012 [facility] [place] [facility] [address] [id number] [place] [address]- 3281 24 May, 2012 [facility] [place] [facility] [address] [id number] [place] [address]- 0128 May, [facility] [place] [facility] [address] [id number] [place] [address]- 4467 Apr, [facility] [place] [facility] [address] [id number] [place] [address]- 9217 Apr, [facility] [place] [facility] [address] [id number] [place] [address]- 0885 Apr, [facility] [place] [facility] [address] [id number] [place] [address]- 3119 Apr, [facility] [place] [facility] [address] [id number] [place] [address]- 4084 Apr, [facility] [place] [facility] [address] [id number] [place] [address]- 5188 Apr, [facility] [place] [facility] [address] [id number] [place] [address]- 4457 Mar, [facility] [place] [facility] [address] [id number] [place] [address]- 5892 Mar, [facility] [place] [facility] [address] [id number] [place] [address]- 3366 Mar, [facility] [place] [facility] [address] [id number] [place] [address]- 0084 Mar, [facility] [place] [facility] [address] [id number] [place] [address]- 0642 Feb, [facility] [address] [id number] [place] [address]- 7539 Feb, [facility] [address] [id number] [place] [address]- 6700 Feb, [facility] [address] [id number] [place] [address]- 3623 Feb, [facility] [address] [id number] [place] [address]- 2260 Feb, [facility] [address] [id number] [place] [address]- 0431 January, [facility] [address] [id number] [place] [address]- 9615 January, [facility] [address] [id number] [place] [address]- 1685 January, [facility] [address] [id number] [place] [address]- 1782 January, [facility] [address] [id number] [place] [address]- 3026 January, [facility] [address] [id number] [place] [address]- 8337 January, [facility] [address] [id number] [place] [address]- 3024 Dec, [facility] [address] [id number] [place] [address]- 3428 Dec, [facility] [place] [facility] [address] [id number] [place] [address]- 5225 Dec, [facility] [address] [id number] [place] [address]- 0881 Dec, [facility] [address] [id number] [place] [address]- 6587 Dec, [facility] [address] [id number] [place] [address]- 9740 27 Nov, 2011 [facility] [place] [facility] [address] [id number] [place] [address]- 9796 14 Nov, 2011 [facility] [place] [facility] [address] [id number] [place] [address]- 5796 12 Nov, 2011 [facility] [place] [facility] [address] [id number] [place] [address]- 4546 07 Nov, 2011 [facility] [place] [facility] [address] [id number] [place] [address]- 6691 29 Oct, 2011 [facility] [place] [facility] [address] [id number] [place] [address]- 8576 28 Oct, 2011 [facility] [place] [facility] [address] [id number] [place] [address]- 2186 24 Oct, 2011 [facility] [place] [facility] [address] [id number] [place] [address]- 2147 13 Oct, 2011 [facility] [place] [facility] [address] [id number] [place] [address]- 8146 08 Oct, 2011 [facility] [place] [facility] [address] [id number] [place] [address]- 1166 Sep, [facility] [place] [facility] [address] [id number] [place] [address]- 8836 Sep, [facility] [place] [facility] [address] [id number] [place] [address]- 2786 Sep, [facility] [place] [facility] [address] [id number] [place] [address]- 5021 Sep, [facility] [place] [facility] [address] [id number] [place] [address]- 4176 Sep, [facility] [place] [facility] [address] [id number] [place] [address]- 0296 Sep, [facility] [place] [facility] [address] [id number] [place] [address]- 7451 Aug, [facility] [place] [facility] [address] [id number] [place] 0595 Aug, [facility] [place] [facility] [address] [id number] [place] 9752 Aug, [facility] [place] [facility] [address] [id number] [place] [address]- 0448 Jul, [facility] [place] [facility] [address] [id number] [place] [address]- 4836 Jul, [facility] [place] [facility] [address] [id number] [place] [address]- 6516 Jul, [facility] [place] [facility] [address] [id number] [place] [address]- 0657 Jul, [facility] [place] [facility] [address] [id number] [place] [address]- 2185 Jun, [facility] [place] [facility] [address] [id number] [place] [address]- 6262 Jun, [facility] [place] [facility] [address] [id number] [place] [address]- 7553 Jun, [facility] [place] [facility] [address] [facility] [id number] [place] [address]- 5976 Jun, [facility] [place] [facility] [address] [id number] [place] [address]- 9740 Jun, [facility] [place] [facility] [address] [id number] [place] [address]- 3050 Jun, [facility] [place] [facility] [address] [id number] [place] [address]- 9355 Mar, [facility] [place] [facility] [address] [id number] [place] [address]- 8627 Dec, [facility] [place] [facility] [address] [id number] [place] [address]- 8645 Dec, [facility] [place] [facility] [address] [id number] [place] [address]- 5986 18 Nov, 2010 [facility] [address] [id number] [place] [address]- 4046 16 Nov, 2010 [facility] [address] [id number] [place] [address]- 3214 10 Sep, 2010 [facility] [address] [id number] [place] [address]- 0806 31 Aug, 2010 [facility] [address] [id number] [place] [address]- 1143 29 Aug, 2010 [facility] [address] [id number] [place] [address]- 3743 Aug, [facility] [address] [id number] [place] [address]- 7910 Aug, [facility] [address] [id number] [place] [address]- 3980 Aug, [facility] [address] [id number] [place] [address]- 4503 14 Aug, 2010 [facility] [address] [id number] [place] [address]- 1313 Aug, [facility] [address] [id number] [place] [address]- 3561 08 Aug, 2010 [facility] [address] [id number] [place] [address]- 1039 07 Aug, 2010 [facility] [address] [id number] [place] [address] Aug, [facility] [place] [facility] [address] [id number] [place] [address] Aug, [facility] [address] [id number] [place] [address] Aug, [facility] [address] [id number] [place] [address] Jul, [facility] [place] [facility] [address] [id number] [place] [address] Jul, [facility] [place] [facility] [address] [id number] [place] [address] 30 Jul, 2010 [facility] [place] [facility] [address] [id number] [place] [address] Jul, [facility] [place] [facility] [address] [id number] [place] [address] Jul, [facility] [place] [facility] [address] [id number] [place] [address] Jul, [facility] [place] [facility] [address] [id number] [place] [address] 24 Jun, 2010 [facility] [place] [facility] [address] [id number] [place] [address] Jun, [facility] [place] [facility] [address] [id number] [place] [address] Jun, [facility] [place] [facility] [address] [id number] [place] [address] Jun, [facility] [place] [facility] [address] [id number] [place] [address] Apr, [facility] [place] [facility] [address] [id number], [place] [address] Mar, [facility] [place] [facility] [address] [id number] [place] [address] Feb, [facility] [place] [facility] [address] [id number] [place] [address] January, [facility] [place] [facility] [address] [id number] [place] [address] 15 Dec, 2009 [facility] [place] [facility] [address] [id number] [place] [address] Nov, [facility] [place] [facility] [address] [id number] [place] [address] 31 Aug, 2009 [facility] [address] [id number] [place] [address] Aug, [facility] [place] [facility] [address] [id number] [place] [address] Aug, [facility] [address] [id number] [place] [address] Jul, [facility] [place] [facility] [address] [id number] [place] [address] Jul, [facility] [address] [id number] [place] [address] Jul, [facility] [place] [facility] [address] [facility] [id number] [place] [address] Jun, [facility] [place] [facility] [address] [id number] [place] [address] Jun, [facility] [address] [id number] [place] [address] Jun, [facility] [place] [facility] [address] [facility] [id number] [place] [address] Jun, [facility] [address] [facility] [id number], [place] [address] Jun, [facility] [place] [facility] [address] [id number], [place] [address] Jun, [facility] [place] [facility] [address] [id number], [place] [address] Apr, [facility] [place] [facility] [address] [id number] [place] [address] Apr, [facility] [place] [facility] [address] [facility] [id number], [place] [address] Feb, [facility] [place] [facility] [address] [id number], [place] [address] January, [facility] [address] [facility] [id number] [place] [id number] Dec, IMMUNIZATIONS No Known Immunizations SOCIAL HISTORY Never Assessed REASON FOR VISIT Refill request PLAN OF CARE VITAL SIGNS MEDICATIONS Medication Instructions Dosage Frequency Start Date End Date Duration Status Furosemide 40 MG Orally Once a day 1 tablet 24h Mar, 90 days Active RESULTS No Results PROCEDURES [...] obesity Medical History skin cancer-basal cell R mu-ism (removed) Medical History Arthritis Medical History degenerative [...] 2009 Surgical History colonoscopy 2009 ([place]), 2013 ([place]) Surgical History heart 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 04/2014 Surgical History carotid US 05/2014 Surgical History resection of skin cancer from Right mu-ism Surgical History Biopsy of Lung Bilateral/Left lung lymph node 09/2016 Surgical History Bone Marrow Biopsy Surgical History port in the right chest wall 12/2016 Hospitalization History [facility] low potassium, low magnesium, chest painina 01/2015 Hospitalization History inability to urinate 09/16/15 Hospitalization History [facility] early Hospitalization History hyperkalemia 10/2017 Hospitalization History fluid in lung
--- OUTSIDE RECORDS SUMMARY | 2018-08-08 13:09 | XMS REPORT ---
Author Author BEREKET NANCY Organization [facility] Address [address] [place] [address] Care Team Providers Care Scrapper Name Role Phone CLAUDIAYANA CURRIEA Unavailable PROBLEMS Type Condition ICD9-CM Code PUO71-HP Code Onset Dates Condition Status SNOMED Code Problem Chronic lymphocytic leukemia C91.10 Active 18315764 Problem Insomnia, unspecified type G47.00 Active 537084098 Problem Lymphocytosis D72.820 Active 23783281 Problem Anxiety F41.9 Active 55363272 Problem Eye exam abnormal R93.8 Active 468253153 Problem Morbid obesity E66.01 Active 104776622 Problem Diabetic polyneuropathy associated with type 2 diabetes mellitus E11.42 Active 71972427 Problem Essential hypertension I10 Active 22513631 Problem Falling R29.6 Active 202760587 Problem 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 Active 227359460 Problem Cough R05 Active 38895011 Problem Dysuria R30.0 Active 54484064 Problem Eustachian tube dysfunction, unspecified laterality H69.80 Active 66244681 Problem Bilateral primary osteoarthritis of knee M17.0 Active 818472293 Problem Polyneuropathy associated with underlying disease G63 Active 579858071 Problem Anemia of chronic illness D63.8 Active 746604171 Problem Retinal edema H35.81 Active 2338145 Problem DM neuro manif type II E11.49 Active 00618410 Problem Diabetes E11.9 Active 99955343 Problem Hypokalemia E87.6 Active 53320357 Problem Benign prostatic hyperplasia with lower urinary tract symptoms, unspecified morphology N40.1 Active 964445204 Problem Reactive airway disease J45.909 Active 102879616455 Problem Bipolar I disorder, most recent episode (or current) mixed, moderate F31.62 Active 53115859 Problem Chronic pain G89.29 Active 59618934 Problem Leukocytosis D72.829 Active 692601268 ALLERGIES No Information ENCOUNTERS Encounter Location Date Diagnosis [facility] [address] [address] Mar, [facility] [id number] [place] [address] 09427- 8903 Mar, [facility] [address] [address] Feb, [facility] [id number] [place] [address] 17316- 3651 January, [facility] [id number] [place] [address] 42901- 3177 January, Chronic pain G89.29 [facility] [id number] [place] [address] 94901- 6671 January, Bipolar I disorder, most recent episode (or current) mixed, moderate F31.62 [facility] [id number] [place] [address] 36814- 8925 January, Bipolar I disorder, most recent episode (or current) mixed, moderate F31.62 [facility] [id number] [place] [address] 73302- 7167 Dec, Bipolar I disorder, most recent episode (or current) mixed, moderate F31.62 and BMI 50.0-59.9, adult Z68.43 [facility] [address] [address] 6226 Dec, Bipolar I disorder, most recent episode (or current) mixed, moderate F31.62 [facility] [address] [place] [address] 67051- 3188 Dec, Chronic pain G89.29 [facility] [address] [place] [address] 74865- 1168 Dec, DM neuro manif type II E11.49 ; Right flank pain R10.9 ; halfway 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 Z79.891 ; Encounter for medication monitoring Z51.81 and BMI 50.0-59.9, adult Z68.43 [facility] [id number] [address] 2546 Dec, Bipolar I disorder, most recent episode (or current) mixed, moderate F31.62 [facility] [id number] [place] [address] 57756- 3836 Nov, Bipolar I disorder, most recent episode (or current) mixed, moderate F31.62 [facility] [id number] [place] [address] 80472- 7676 Nov, Chronic pain G89.29 [facility] [id number] [place] [address] 91194- 5096 Nov, Bipolar I disorder, most recent episode (or current) mixed, moderate F31.62 [facility] [id number] [place] [address] 87003- 5327 Nov, Hypokalemia E87.6 [facility] [id number] [place] [address] 31329- 5469 Nov, Bipolar I disorder, most recent episode (or current) mixed, moderate F31.62 [facility] [id number] [place] [address] 19686- 7354 Oct, Chronic pain G89.29 [facility] [id number] [place] [address] 15834- 8229 Oct, BMI 50.0-59.9, adult Z68.43 and Bipolar I disorder, most recent episode (or current) mixed, moderate F31.62 [facility] [address] [place] [address] 63923- 1630 Oct, Bipolar I disorder, most recent episode (or current) mixed, moderate F31.62 [facility] [id number] [place] [address] 34479- 7356 Oct, [facility] [id number] [place] [address] 05558- 3096 Oct, Hypokalemia E87.6 [facility] [id number] [place] [address] 93147- 7799 Oct, DM neuro manif type II E11.49 [facility] [address] 88021- 4265 Oct, Bipolar I disorder, most recent episode (or current) mixed, moderate F31.62 [facility] [address] 19235- 8962 Oct, Bipolar I disorder, most recent episode (or current) mixed, moderate F31.62 [facility] [address] 78952- 1875 Oct, Hyperkalemia E87.5 ; Falling R29.6 ; BMI 50.0-59.9, adult Z68.43 and Acute left ankle pain M25.572 [facility] [address] 54941- 8742 Oct, DM neuro manif type II E11.49 [facility] [address] 20046- 6642 Oct, [facility] [address] 28572- 6247 Sep, Chronic pain G89.29 [facility] [address] 10149- 8593 Sep, [facility] [address] 33469- 3226 Sep, Bilateral primary osteoarthritis of knee M17.0 [facility] [address] 91266- 3874 Sep, Generalized edema R60.1 [facility] [address] 80364- 7234 Sep, Bipolar I disorder, most recent episode (or current) mixed, moderate F31.62 [facility] [id number] [place] [address] 22144- 0102 15 Sep, 2017 Hypoxia R09.02 ; Other hypervolemia E87.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 ; Anemia of chronic illness D63.8 and BMI 50.0- 59.9, adult Z68.43 [facility] [address] 57216- 5135 Sep, [facility] [id number] [place] [address] 30211- 1727 Sep, Bipolar I disorder, most recent episode (or current) mixed, moderate F31.62 [facility] [id number] [place] [address] 71219- 5726 Aug, Chronic pain G89.29 [facility] [id number] [place] [address] 41100- 9771 Aug, Generalized edema R60.1 [facility] [id number] [place] [address] 35177- 9618 Aug, [facility] [id number] [place] [address] 07757- 6246 Aug, [facility] [id number] [place] [address] 52009- 9380 14 Aug, 2017 Bipolar I disorder, most recent episode (or current) mixed, moderate F31.62 [facility] [id number] [place] [address] 92240- 6676 07 Aug, 2017 Bipolar I disorder, most recent episode (or current) mixed, moderate F31.62 [facility] [id number] [place] [address] 62751- 3567 04 Aug, 2017 Chronic pain G89.29 [facility] [id number] [place] [address] 13153- 7808 Jul, Bipolar I disorder, most recent episode (or current) mixed, moderate F31.62 [facility] [address] [address]- 3257 Jul, Bipolar I disorder, most recent episode (or current) mixed, moderate F31.62 and BMI 60.0-69.9, adult Z68.44 [facility] [id number] [place] [address] 65419- 8961 Jul, Bipolar I disorder, most recent episode (or current) mixed, moderate F31.62 [facility] [id number] [place] [address] 51943- 4791 Jul, Chronic pain G89.29 [facility] [id number] [place] [address] 91672- 3120 Jul, Bipolar I disorder, most recent episode (or current) mixed, moderate F31.62 [facility] [id number] [place] [address] 44723- 4989 Jun, Polyneuropathy associated with underlying disease G63 and Diabetes E11.9 [facility] [id number] [place] [address] 71930- 4359 Jun, Bipolar I disorder, most recent episode (or current) mixed, moderate F31.62 [facility] [address] [place] [address] 70929- 0311 Jun, Chronic pain G89.29 [facility] [id number] [place] [address] 73700- 0055 May, Bipolar I disorder, most recent episode (or current) mixed, moderate F31.62 [facility] [address] [place] [address] 74831- 3932 May, Bipolar I disorder, most recent episode (or current) mixed, moderate F31.62 [facility] [id number] [place] [address] 64582- 9516 May, Diabetic polyneuropathy associated with type 2 diabetes mellitus E11.42 [facility] [id number] [place] [address] 97735- 1837 18 May, 2017 Bipolar I disorder, most recent episode (or current) mixed, moderate F31.62 [facility] [id number] [place] [address] 19472- 5831 13 May, 2017 Bipolar I disorder, most recent episode (or current) mixed, moderate F31.62 [facility] [id number] [place] [address] 08469- 3649 12 May, 2017 Chronic pain G89.29 [facility] [id number] [place] [address] 901214- 3086 30 Apr, 2017 Bipolar I disorder, most recent episode (or current) mixed, moderate F31.62 [facility] [id number] [place] [address] 62462- 6668 Apr, [facility] [address] 748909- 3367 Apr, Chronic pain G89.29 and DM neuro manif type II E11.49 [facility] [id number] [place] [address] 17709- 7107 Apr, [facility] [id number] [place] [address] 81827- 3157 Apr, Bipolar I disorder, most recent episode (or current) mixed, moderate F31.62 [facility] [id number] [place] [address] 86569- 3704 Apr, Chronic pain G89.29 [facility] [id number] [place] [address] 31623- 4746 Apr, Iliotibial band syndrome, left M76.32 [facility] [id number] [place] [address] 95607- 6958 Apr, Bipolar I disorder, most recent episode (or current) mixed, moderate F31.62 [facility] [id number] [place] [address] 70340- 6517 Mar, Bipolar I disorder, most recent episode (or current) mixed, moderate F31.62 [facility] [address] [place] [address] 77498- 0910 Mar, Bipolar I disorder, most recent episode (or current) mixed, moderate F31.62 [facility] [id number] [place] [address] 39758- 2596 Mar, [facility] [id number] [place] [address] 78417- 0918 Mar, Bipolar I disorder, most recent episode (or current) mixed, moderate F31.62 [facility] [id number] [place] [address] 14316- 3588 Mar, Chronic pain G89.29 [facility] [id number] [place] [address] 15176- 7884 Mar, Bipolar I disorder, most recent episode (or current) mixed, moderate F31.62 [facility] [address] [place] [address] 15975- 6145 Mar, Bipolar I disorder, most recent episode (or current) mixed, moderate F31.62 [facility] [address] [place] [address] 80869- 0314 Mar, Acute pain of left knee M25.562 ; Left hip pain M25.552 ; Generalized edema R60.1 and Tongue swelling R22.0 [facility] [address] [place] [address] 35869- 4176 Mar, [facility] [address] [place] [address] 96138- 9848 Feb, Chronic pain G89.29 [facility] [id number] [place] [address] 02830- 8947 Feb, Diabetes E11.9 [facility] [id number] [place] [address] 54378- 8226 January, Chronic pain G89.29 [facility] [address] [place] [address] 87858- 0670 January, [facility] [id number] [place] [address] 17830- 3212 January, Bipolar I disorder, most recent episode (or current) mixed, moderate F31.62 [facility] [id number] [place] [address] 19344- 1183 Dec, Bipolar I disorder, most recent episode (or current) mixed, moderate F31.62 [facility] [id number] [place] [address] 97243- 9588 Dec, Chronic pain G89.29 [facility] [id number] [place] [address] 33538- 1739 Dec, Bipolar I disorder, most recent episode (or current) mixed, moderate F31.62 [facility] [id number] [place] [address] 89859- 8567 Dec, Diabetes E11.9 ; Essential hypertension I10 ; Chronic pain G89.29 and Morbid obesity E66.01 [facility] [id number] [place] [address] 13534- 4331 Dec, [facility] [id number] [place] [address] 29920- 4305 Dec, Bipolar I disorder, most recent episode (or current) mixed, moderate F31.62 [facility] [address] [place] [address] 98050- 1771 Dec, Bipolar I disorder, most recent episode (or current) mixed, moderate F31.62 [facility] [id number] [place] [address] 97657- 3258 Nov, Chronic pain G89.29 [facility] [id number] [place] [address] 40785- 4204 Nov, Bipolar I disorder, most recent episode (or current) mixed, moderate F31.62 [facility] [address] [address]- 4344 Nov, [facility] [id number] [place] [address] 35620- 8933 Nov, Bipolar I disorder, most recent episode (or current) mixed, moderate F31.62 [facility] [address] [address]- 6401 Nov, Bipolar I disorder, most recent episode (or current) mixed, moderate F31.62 [facility] [address] [place] [address] 40149- 9617 Nov, [facility] [id number] [place] [address] 19394- 3736 Nov, [facility] [id number] [place] [address] 53369- 3751 Nov, [facility] [id number] [place] [address] 61527- 9341 Oct, Chronic pain G89.29 [facility] [address] [place] [address] 11638- 4391 Oct, Bipolar I disorder, most recent episode (or current) mixed, moderate F31.62 [facility] [address] [address]- 9730 Oct, [facility] [id number] [place] [address] 71617- 0265 Oct, Chronic pain G89.29 ; Diabetes E11.9 ; Anxiety F41.9 and 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 [facility] [address] [place] [address] 09589- 1523 Oct, [facility] [address] [address]- 7531 06 Oct, 2016 Diabetes E11.9 [facility] [id number] [place] [address] 70905- 9826 Oct, Bipolar I disorder, most recent episode (or current) mixed, moderate F31.62 [facility] [address] [place] [address] 74250- 2287 Sep, Chronic pain G89.29 [facility] [address] [place] [address] 13106- 4836 Sep, Chronic pain G89.29 [facility] [id number] [place] [address] 72307- 4816 Aug, Chronic pain G89.29 [facility] [id number] [place] [address] 25417- 7866 Jul, [facility] [id number] [place] [address] 68426- 8354 Jul, Diabetes E11.9 [facility] [id number] [place] [address] 69957- 2369 Jul, Chronic pain G89.29 [facility] [address] [place] [address] 95559- 5457 Jul, Bipolar I disorder, most recent episode (or current) mixed, moderate F31.62 [facility] [address] [place] [address] 40201- 6921 Jun, Bipolar I disorder, most recent episode (or current) mixed, moderate F31.62 [facility] [address] [place] [address] 34469- 6653 Jun, [facility] [address] [place] [address] 84804- 0548 Jun, Bipolar I disorder, most recent episode (or current) mixed, moderate F31.62 [facility] [address] [place] [address] 08266- 4969 May, Insomnia, unspecified type G47.00 [facility] [address] [place] [address] 80270- 7620 May, Bipolar I disorder, most recent episode (or current) mixed, moderate F31.62 [facility] [id number] [place] [address] 49715- 6475 14 May, 2016 [facility] [id number] [place] [address] 96109- 7607 May, Bipolar I disorder, most recent episode (or current) mixed, moderate F31.62 [facility] [id number] [place] [address] 87094- 8975 May, Diabetes E11.9 and Essential hypertension I10 [facility] [id number] [place] [address] 42859- 8617 Apr, Chronic pain G89.29 [facility] [id number] [place] [address] 00566- 0129 Apr, Bipolar I disorder, most recent episode (or current) mixed, moderate F31.62 [facility] [id number] [place] [address] 80566- 5251 Apr, [facility] [id number] [place] [address] 00433- 3085 Apr, [facility] [id number] [place] [address] 36778- 3783 Mar, Chronic pain G89.29 ; Headache, unspecified headache type R51 ; Neuropathy G62.9 ; Pain of right hip joint M25.551 and Essential hypertension I10 [facility] [address] [place] [address] 10896- 6656 Mar, Chronic pain G89.29 [facility] [id number] [place] [address] 52739- 2752 Mar, Bipolar I disorder, most recent episode (or current) mixed, moderate F31.62 [facility] [address] [place] [address] 36087- 6990 Feb, Bipolar I disorder, most recent episode (or current) mixed, moderate F31.62 and Insomnia, unspecified type G47.00 [facility] [id number] [place] [address] 93461- 5180 Feb, Chronic pain G89.29 [facility] [id number] [place] [address] 29212- 4893 Feb, Bipolar I disorder, most recent episode (or current) mixed, moderate F31.62 [facility] [id number] [place] [address] 03030- 6422 January, Bipolar I disorder, most recent episode (or current) mixed, moderate F31.62 [facility] [address] 27062- 9010 January, Chronic pain G89.29 [facility] [address] 02702- 5108 January, Chronic pain G89.29 and Essential hypertension I10 [facility] [id number] [place] [address] 36723- 8515 January, Bipolar I disorder, most recent episode (or current) mixed, moderate F31.62 [facility] [id number] [place] [address] 38452- 1854 Dec, [facility] [id number] [place] [address] 67200- 0740 Dec, [facility] [id number] [place] [address] 30664- 6908 Dec, [facility] [id number] [place] [address] 60283- 6292 Dec, [facility] [address] 26213- 4442 Nov, Reactive airway disease J45.909 [facility] [id number] [place] [address] 08251- 4935 Nov, [facility] [address] [place] [address]- 9860 Nov, [facility] [id number] [place] [address] 17282- 1201 Nov, [facility] [id number] [place] [address] 07788- 9703 Nov, [facility] [id number] [place] [address] 64366- 8729 Nov, Onychomycosis B35.1 ; Hammertoe M20.40 ; Ethel or callus L84 and DM neuro manif type II E11.49 [facility] [id number] [place] [address] 53155- 0139 Nov, Chronic pain G89.29 ; Leukocytosis D72.829 and Diabetes E11.9 [facility] [id number] [place] [address] 64984- 1965 Nov, [facility] [id number] [place] [address] 54798- 7360 Oct, Bronchitis J40 [facility] [id number] [place] [address] 62518- 4167 Oct, [facility] [id number] [place] [address] 64429- 7559 Oct, [facility] [id number] [place] [address] 01766- 9867 Oct, Mastoiditis, unspecified laterality H70.90 and Type 2 diabetes mellitus with complication E11.8 [facility] [id number] [place] [address] 37816- 6719 Sep, [facility] [id number] [place] [address] 65991- 5509 Sep, Dysuria R30.0 ; Cough R05 ; Benign prostatic hyperplasia with lower urinary tract symptoms, unspecified morphology N40.1 ; Hypokalemia E87.6 and Eustachian tube dysfunction, unspecified laterality H69.80 [facility] [place] [id number] [place] [address] 00168- 9049 Sep, Moderate mixed bipolar I disorder F31.62 [facility] [id number] [place] [address] 94333- 0201 Sep, Hypokalemia E87.6 [facility] [id number] [place] [address] 43543- 8353 Sep, [facility] [id number] [place] [address] 82130- 4946 Sep, Upper respiratory tract infection, unspecified type J06.9 [facility] [place] [id number] [place] [address] 46771- 7641 Aug, [facility] [id number] [place] [address] [id number] Aug, Dysuria R30.0 [facility] [id number] [place] [address] [id number] [id number] Aug, [facility] [id number] [place] [address] [id number] [id number] Jul, [facility] [id number] [place] [address] [id number] Jul, [facility] [id number] [place] [address] [phone] Jul, [facility] [facility] [id number] [place] [address] 78329- 7231 Jul, [facility] [id number] [place] [address] 15098- 8483 Jun, [facility] [id number] [place] [address] 61499- 2287 Jun, [facility] [id number] [place] [address] 42835- 9161 Jun, [facility] [place] [id number] [place] [address] 55712- 6670 May, [facility] [address] [address] 6128 May, Bipolar I disorder, most recent episode (or current) mixed, moderate 296.62 [facility] [id number] [place] [address] 66106- 3447 May, [facility] [id number] [place] [address] 52568- 0201 May, Bipolar I disorder, most recent episode (or current) mixed, moderate 296.62 and Major depressive disorder, recurrent episode, severe, specified as with psychotic behavior 296.34 [facility] [id number] [place] [address] 71725- 1583 May, Bipolar I disorder, most recent episode (or current) mixed, moderate 296.62 [facility] [id number] [place] [address] 70134- 8560 May, [facility] [id number] [place] [address] 60048- 8704 Apr, [facility] [id number] [place] [address] 27262- 3779 Apr, [facility] [id number] [place] [address] 98161- 9018 Apr, Unspecified disorder of kidney and ureter 593.9 and Diabetes mellitus type 2, uncontrolled 250.02 [facility] [id number] [place] [address] 28409- 1727 Apr, [facility] [address] [address]- 4941 Apr, [facility] [id number] [place] [address] 23419- 0708 Apr, [facility] [address] [address]- 2269 Apr, [facility] [address] [place] [address]- 7860 Apr, Diabetes mellitus type II, uncontrolled 250.02 [facility] [id number] [place] [address] 60974- 6554 Apr, [facility] [id number] [place] [address] 46161- 2242 Mar, [facility] [id number] [place] [address] 34599- 8005 Mar, [facility] [id number] [place] [address] 98911- 5842 Mar, [facility] [id number] [place] [address] 21955- 9848 Mar, Major depressive disorder, recurrent episode, severe, specified as with psychotic behavior 296.34 and Bipolar I disorder, most recent episode (or current) mixed, moderate 296.62 [facility] [id number] [place] [address] 11464- 8237 Mar, Diabetes 250.00 ; Anuria 788.5 ; Nausea and vomiting 787.01 and Diarrhea 787.91 [facility] [id number] [place] [address] 62060- 0012 Mar, Diabetes 250.00 [facility] [id number] [place] [address] 07952- 7364 Mar, [facility] [id number] [place] [address] 61992- 8891 Mar, Diabetes 250.00 [facility] [id number] [place] [address] 95161- 7751 Mar, [facility] [id number] [place] [address] 47654- 1663 Mar, [facility] [id number] [place] [address] 507440- 4202 Mar, [facility] [id number] [place] [address] 43459- 1973 Mar, [place] [id number] [place] [address] 64110- 0281 Mar, Bipolar I disorder, most recent episode (or current) mixed, moderate 296.62 and Major depressive disorder, recurrent episode, severe, specified as with psychotic behavior 296.34 [place] [facility] [id number] [place] [address] 53315- 1604 Mar, Magnesium deficiency 275.2 ; Hypokalemia 276.8 ; Nausea & vomiting 787.01 and Diabetes mellitus type 2, uncontrolled 250.02 [place] [facility] [id number] [place] [address] 23025- 4457 Feb, [facility] [facility] [id number] [place] [address] 80032- 8631 Feb, Bipolar I disorder, most recent episode (or current) mixed, moderate 296.62 [facility] [id number] [place] [address] 92769- 0111 Feb, Nausea and vomiting 787.01 ; Left elbow pain 719.42 ; Anuria 788.5 and Diabetes 250.00 [place] [facility] [id number] [place] [address] 32928- 7410 Feb, [facility] [facility] [id number] [place] [address] 62390- 9170 Feb, Hypopotassemia 276.8 and Hypokalemia 276.8 [place] [facility] [id number] [place] [address] 51070- 1678 Feb, Hypopotassemia 276.8 and Hypokalemia 276.8 [id number] [place] [address] 48642- 6248 Feb, Seborrheic keratoses 702.19 [place] [facility] [id number] [place] [address] 46469- 9982 Feb, Hypopotassemia 276.8 and Low magnesium levels 275.2 [address] [id number] [address]- 1670 January, [facility] [address] [address]- 6530 January, [facility] [address] [address]- 3119 January, [facility] [id number] [place] [address] 28550- 8179 January, Scalp lesion 709.9 [facility] [address] [address]- 7684 January, [facility] [id number] [place] [address] 64618- 3398 Dec, Tear of medial cartilage or meniscus of knee, current 836.0 and 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 [facility] [address] [address]- 5501 Dec, [facility] [address] [address]- 3485 Dec, [facility] [address] [address]- 1740 Dec, Squamous cell carcinoma, 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 [facility] [address] [address]- 0879 Dec, [facility] [address] [address]- 4263 Dec, [facility] [address] [id number] [address]- 5147 Nov, [facility] [address] [address]- 0049 Nov, [facility] [address] [address]- 4909 Nov, [facility] [address] [address]- 5224 Nov, [facility] [place] [facility] [address] [id number] [place] [address]- 8879 Nov, 2014 [facility] [place] [facility] [address] [facility] [id number] [place] [address]- 9417 Nov, [facility] [place] [facility] [address] [facility] [id number] [place] [address]- 8620 Nov, 2014 [facility] [place] [facility] [address] [facility] [id number] [place] [address]- 3985 Nov, 2014 [facility] [place] [facility] [address] [facility] [id number] [place] [address]- 2841 Nov, [facility] [place] [facility] [address] [facility] [id number] [place] [address]- 6631 Nov, 2014 [facility] [place] [facility] [id number] [address]- 6614 Nov, [facility] [place] [facility] [address] [facility] [id number] [address]- 9422 Nov, [facility] [place] [facility] [id number] [place] [address]- 3609 Oct, 2014 [facility] [place] [facility] [id number] [address]- 4724 Oct, 2014 [facility] [place] [facility] [id number] [place] [address]- 6239 Oct, 2014 [facility] [place] [facility] [address] [facility] [id number] [address]- 2335 Oct, 2014 [facility] [place] [facility] [address] [facility] [id number] [place] [address]- 9296 Oct, 2014 [facility] [place] [facility] [address] [facility] [id number] [address]- 2793 Oct, 2014 [facility] [place] [facility] [address] [id number] [address]- 9665 Oct, [facility] [place] [facility] [address] [id number] [place] [address]- 2022 Oct, [facility] [place] [facility] [address] [id number] [place] [address]- 1574 Oct, [facility] [place] [facility] [address] [id number] [place] [address]- 4083 Sep, [facility] [place] [facility] [address] [id number] [place] [address]- 0997 Sep, [facility] [place] [facility] [address] [id number] [place] [address]- 9033 Sep, [facility] [place] [facility] [address] [id number] [place] [address]- 7649 Sep, [facility] [place] [facility] [address] [id number] [place] [address]- 4727 Sep, [facility] [place] [facility] [address] [id number] [place] [address]- 0552 Sep, [facility] [place] [facility] [address] [id number] [place] [address]- 1369 Sep, [facility] [place] [facility] [address] [id number] [place] [address]- 7959 Sep, [facility] [place] [facility] [address] [id number] [place] [address]- 3108 Sep, [facility] [place] [facility] [address] [id number] [address]- 1587 Sep, [facility] [place] [facility] [address] [id number] [place] [address]- 6453 Sep, [facility] [place] [facility] [address] [id number] [place] [address]- 1053 Sep, [facility] [place] [facility] [address] [id number] [place] [address]- 4245 Sep, [facility] [place] [facility] [address] [id number] [place] [address]- 7595 Sep, [facility] [address] [id number] [place] [address]- 3036 Sep, [facility] [address] [id number] [place] [address]- 7965 Sep, [facility] [address] [id number] [place] [address]- 7658 Aug, [facility] [address] [id number] [place] [address]- 0299 Aug, [facility] [address] [id number] [place] [address]- 0230 Aug, [facility] [address] [id number] [place] [address]- 0514 Aug, [facility] [address] [id number] [place] [address]- 1344 Aug, [facility] [address] [id number] [place] [address]- 0384 Aug, [facility] [address] [id number] [place] [address]- 4573 Aug, [facility] [address] [id number] [place] [address]- 9153 Aug, [facility] [address] [id number] [place] [address]- 2213 Aug, [facility] [address] [id number] [place] [address]- 7722 Aug, [facility] [address] [id number] [place] [address]- 4234 Aug, [facility] [place] [id number] 10 Aug, 2014 [facility] [address] [id number] [place] [address]- 1002 Aug, [facility] [address] [id number] [place] [address]- 2943 10 Aug, 2014 [facility] [place] [facility] [address] [id number] [place] [address]- 7891 Aug, [facility] [place] [facility] [address] [id number] [place] [address]- 5412 Aug, [facility] [place] [facility] [address] [id number] [place] [address]- 6479 Aug, [facility] [place] [facility] [address] [id number] [place] [address]- 2191 Aug, [facility] [place] [facility] [address] [id number] [place] [address]- 1172 Aug, [facility] [place] [facility] [address] [id number] [place] [address]- 4013 Aug, [facility] [place] [facility] [address] [id number] [place] [address]- 3894 Aug, [facility] [place] [facility] [address] [id number] [place] [address]- 3621 Aug, [facility] [place] [facility] [address] [id number] [place] [address]- 6830 Aug, [facility] [place] [facility] [address] [id number] [place] [address]- 0632 Aug, [facility] [place] [facility] [address] [id number] [place] [address]- 7530 Aug, [facility] [place] [facility] [address] [id number] [place] [address]- 4112 Aug, [facility] [place] [facility] [address] [id number] [place] [address]- 8697 Aug, [facility] [place] [facility] [address] [id number] [place] [address]- 1272 Aug, [facility] [place] [facility] [address] [id number] [place] [address]- 0281 Aug, [facility] [place] [facility] [address] [id number] [place] [address]- 4715 Aug, [facility] [place] [facility] [address] [id number] [place] [address]- 6147 Jul, [facility] [place] [facility] [address] [id number] [place] [address]- 0889 Jul, [facility] [place] [facility] [address] [id number] [place] [address]- 7544 Jul, [facility] [place] [facility] [address] [id number] [place] [address]- 5248 Jul, [facility] [place] [facility] [address] [id number] [place] [address]- 9448 Jul, [facility] [place] [facility] [address] [id number] [place] [address]- 1455 Jul, [facility] [place] [facility] [address] [id number] [place] [address]- 6850 Jul, [facility] [place] [facility] [address] [id number] [place] [address]- 1733 Jul, [facility] [place] [facility] [address] [id number] [place] [address]- 8126 Jul, [facility] [place] [facility] [address] [id number] [place] [address]- 9869 Jul, [facility] [place] [facility] [address] [id number] [address]- 8977 Jun, [facility] [place] [facility] [address] [id number] [place] [address]- 7291 Jun, [facility] [place] [facility] [address] [id number] [place] [address]- 1395 Jun, [facility] [place] [facility] [address] [id number] 9538 Jun, [facility] [place] [facility] [address] [id number] [address]- 6775 Jun, [facility] [place] [facility] [address] [id number] [place] [address]- 3406 Jun, [facility] [place] [facility] [address] [id number] [place] [address]- 1775 Jun, [facility] [place] [facility] [address] [id number] [place] [address]- 9795 Jun, [facility] [place] [facility] [address] [id number] [place] [address]- 6438 Jun, [facility] [place] [facility] [address] [id number] [place] [address]- 3568 Jun, [facility] [place] [facility] [address] [id number] [place] [address]- 9149 29 May, 2014 [facility] [place] [facility] [address] [id number] [place] [address]- 8436 29 May, 2014 [facility] [place] [facility] [address] [id number] [place] [address]- 7033 26 May, 2014 [facility] [place] [facility] [address] [id number] [place] [address]- 1442 26 May, 2014 [facility] [place] [facility] [address] [id number] [place] [address]- 5208 17 May, 2014 [facility] [place] [facility] [address] [id number] [address] 2540 17 May, 2013 [facility] [place] [facility] [address] [id number] [address]- 254 15 May, 2013 [facility] [place] [facility] [address] [id number] [address] 2546 15 May, 2013 [facility] [place] [facility] [address] [id number] [address]- 2547 15 May, 2013 [facility] [place] [facility] [address] [id number] [place] [address]- 2549 15 May, 2013 [facility] [place] [facility] [address] [id number] [place] [address]- 4995 10 May, 2013 [facility] [place] [facility] [address] [id number] [place] [address]- 4718 May, 2013 [facility] [place] [facility] [address] [id number] [place] [address]- 0586 May, 2013 [facility] [place] [facility] [address] [id number] [place] [address]- 4106 May, 2013 [facility] [place] [facility] [address] [id number] [place] [address]- 3374 May, 2013 [facility] [place] [facility] [address] [id number] [place] [address]- 3447 May, [facility] [place] [facility] [address] [id number] [place] [address]- 6928 Apr, [facility] [place] [facility] [address] [id number] [place] [address]- 2121 Apr, [facility] [place] [facility] [address] [id number] [place] [address]- 6726 Apr, [facility] [place] [facility] [address] [id number] [place] [address]- 7632 Apr, [facility] [place] [facility] [address] [id number] [place] [address]- 1507 Apr, [facility] [place] [facility] [address] [id number] [place] [address]- 9247 Apr, [facility] [place] [facility] [address] [id number] [place] [address]- 5963 Apr, [facility] [place] [facility] [address] [id number] [place] [address]- 1826 Apr, [facility] [place] [facility] [address] [id number] [place] [address]- 4245 Apr, [facility] [place] [facility] [address] [id number] [place] [address]- 4479 Apr, [facility] [place] [facility] [address] [id number] [place] [address]- 4148 Apr, [facility] [place] [facility] [address] [id number] [place] [address]- 0817 Apr, [facility] [place] [facility] [address] [id number] [place] [address]- 4573 Apr, [facility] [place] [facility] [address] [id number] [place] [address]- 1627 Apr, [facility] [place] [facility] [address] [id number] [place] [address]- 9062 Apr, [facility] [place] [facility] [address] [id number] [place] [address]- 0020 Mar, [facility] [place] [facility] [address] [id number] [place] [address]- 7292 Mar, [facility] [place] [facility] [address] [id number] [place] [address]- 3218 Mar, [facility] [place] [facility] [address] [id number] [place] [address]- 5597 Mar, [facility] [place] [facility] [address] [id number] [place] [address]- 8247 Mar, [facility] [place] [facility] [address] [id number] [place] [address]- 1299 Mar, [facility] [place] [facility] [address] [id number] [place] [address]- 9766 Mar, [facility] [place] [facility] [address] [id number] [place] [address]- 5500 Mar, [facility] [place] [facility] [address] [id number] [place] [address]- 0413 Mar, [facility] [place] [facility] [address] [id number] [place] [address]- 0773 Mar, [facility] [place] [facility] [address] [id number] [place] [address]- 6233 Mar, 2013 [facility] [place] [facility] [address] [id number] [place] [address]- 1877 Mar, 2013 [facility] [place] [facility] [address] [id number] [place] [address]- 1792 Mar, 2013 [facility] [place] [facility] [address] [id number] [place] [address]- 3126 Mar, 2013 [facility] [place] [facility] [address] [id number] [place] [address]- 7994 Mar, 2013 [facility] [place] [facility] [address] [id number] [place] [address]- 9542 Mar, 2013 [facility] [place] [facility] [address] [id number] [place] [address] Mar, 2013 [facility] [place] [facility] [address] [id number] [place] [address] Mar, 2013 [facility] [place] [facility] [address] [id number] [place] [address] Feb, [facility] [place] [facility] [address] [id number] [place] [address] Feb, [facility] [place] [facility] [address] [id number] [place] [address] Feb, [facility] [place] [facility] [address] [id number] [place] [address] Feb, [facility] [place] [facility] [address] [id number] [place] [address] Feb, [facility] [place] [facility] [address] [id number] [place] [address] Feb, [facility] [place] [facility] [address] [id number] [place] [address] Feb, [facility] [place] [facility] [address] [id number] [place] [address] Feb, [facility] [place] [facility] [address] [id number] [place] [address] Feb, [facility] [place] [facility] [address] [id number] [place] [address] Feb, [facility] [place] [facility] [address] [id number] [place] [address] Feb, [facility] [place] [facility] [address] [id number] [place] [address] Feb, [facility] [place] [facility] [address] [id number] [place] [address] Feb, [facility] [place] [facility] [address] [id number] [place] [address] Feb, [facility] [place] [facility] [address] [id number] [place] [address]- [address] January, [facility] [place] [facility] [address] [id number] [place] [address] January, [facility] [place] [facility] [address] [id number] [place] [address] January, [facility] [place] [facility] [address] [id number] [place] [address]- [address] January, [facility] [place] [facility] [address] [id number] [place] [address]- [address] January, [facility] [place] [facility] [address] [id number] [place] [address]- [address] January, [facility] [place] [facility] [address] [id number] [place] [address]- [address] January, [facility] [place] [facility] [address] [id number] [place] [address]- [address] January, [facility] [place] [facility] [address] [id number] [place] [address] January, [facility] [place] [facility] [address] [id number] [place] [address]99 January, [facility] [place] [facility] [address] [id number] [place] [address]- [address] January, [facility] [place] [facility] [address] [id number] [place] [address]- [address] January, [facility] [place] [facility] [address] [id number] [place] [address]- [address]68 January, [facility] [place] [facility] [address] [id number] [place] [address] January, [facility] [place] [facility] [address] [id number] [place] [address]- [address] Dec, [facility] [place] [facility] [address] [id number] [place] [address]- [address] Dec, [facility] [place] [facility] [address] [id number] [place] [address]- [address]99 Dec, [facility] [place] [facility] [address] [id number] [place] [address]- [address] Dec, [facility] [place] [facility] [address] [id number] [place] [address]- [address] Dec, [facility] [place] [facility] [address] [id number] [place] [address]- [address] Dec, [facility] [place] [facility] [address] [id number] [place] [address]- [address] Dec, [facility] [place] [facility] [address] [id number] [place] [address]- [address] Dec, [facility] [place] [facility] [address] [id number] [place] [address] Dec, [facility] [place] [facility] [address] [id number] [place] [address]- [address] Dec, [facility] [place] [facility] [address] [id number] [place] [address]- [address] Nov, [facility] [place] [facility] [address] [id number] [place] [address]- [address] Nov, [facility] [place] [facility] [address] [id number] [place] [address]- [address] Nov, [facility] [place] [facility] [address] [id number] [place] [address]- [address] Nov, [facility] [place] [facility] [address] [id number] [place] [address]- [address] Nov, [facility] [place] [facility] [address] [id number] [place] [address]- [address] Nov, [facility] [place] [facility] [address] [id number] [place] [address]- [address] Nov, [facility] [place] [facility] [address] [id number] [place] [address]- [address]75 Nov, [facility] [place] [facility] [address] [id number] [place] [address]- [address]84 Nov, [facility] [place] [facility] [address] [id number] [place] [address]- [address]148 Nov, [facility] [place] [facility] [address] [id number] [place] [address]- [address] Oct, [facility] [place] [facility] [address] [facility] [id number] [place] [address]- [address] Oct, [facility] [place] [facility] [address] [id number] [place] [address]- [address]041 Oct, [facility] [place] [facility] [address] [id number] [place] [address]- [address] Oct, [facility] [place] [facility] [address] [id number] [place] [address] Oct, [facility] [place] [facility] [address] [id number] [place] [address] 20 Oct, 2013 [facility] [place] [facility] [address] [id number] [place] [address] 1304 Oct, [facility] [place] [facility] [address] [id number] [place] [address] 3203 Oct, [facility] [place] [facility] [address] [id number] [place] [address]- 7755 Oct, [facility] [place] [facility] [address] [facility] [id number] [place] [address] 0559 Oct, [facility] [place] [facility] [address] [id number] [place] [address]- 2954 Oct, [facility] [place] [facility] [address] [id number] [place] [address]- 8053 Oct, [facility] [place] [facility] [address] [facility] [id number] [place] [address]- 6785 Oct, [facility] [place] [facility] [address] [facility] [id number] [place] [address]- 9523 Oct, [facility] [place] [facility] [address] [facility] [id number] [place] [address]- 3477 Sep, [facility] [place] [facility] [address] [facility] [id number] [place] [address]- 8975 Sep, [facility] [place] [facility] [address] [facility] [id number] [place] [address]- 5076 Sep, [facility] [place] [facility] [address] [facility] [id number] [place] [address]- 7302 Sep, [facility] [place] [facility] [address] [id number] [address] 27[address] Sep, [facility] [place] [facility] [address] [id number] [place] [address]- 7751 Sep, [facility] [place] [facility] [address] [facility] [id number] [place] [address]- 7171 14 Sep, 2013 [facility] [place] [facility] [address] [facility] [id number] [place] [address]- 4377 Sep, [facility] [place] [facility] [address] [id number] [place] [address]- 5794 08 Sep, 2013 [facility] [place] [facility] [address] [id number] [place] [address]- 0326 Sep, [facility] [place] [facility] [address] [id number] [place] [address] 1939 Aug, [facility] [place] [facility] [address] [id number] [place] [address]- 6461 Aug, [facility] [place] [facility] [address] [id number] [place] [address]- 4576 Jul, [facility] [place] [facility] [address] [id number] [place] [address]- 8445 Jul, [facility] [place] [facility] [address] [id number] [place] [address]- 3010 Jul, [facility] [place] [facility] [address] [id number] [place] [address]- 4113 Jul, [facility] [place] [facility] [address] [id number] [place] [address]- 0892 Jul, [facility] [place] [facility] [address] [id number] [place] [address]- 7989 Jul, [facility] [place] [facility] [address] [id number] [place] [address]- 6378 Jul, [facility] [place] [facility] [address] [id number] [place] [address]- 8253 Jul, [facility] [place] [facility] [address] [id number] [place] [address]- 0028 Jul, [facility] [place] [facility] [address] [id number] [place] [address]- 9504 Jul, [facility] [place] [facility] [address] [id number] [place] [address]- 8258 Jul, [facility] [place] [facility] [address] [id number] [place] [address]- 2359 Jul, [facility] [place] [facility] [address] [id number] [place] [address]- 8668 Jul, 2012 [facility] [place] [facility] [address] [id number] [place] [address]- 7336 Jul, [facility] [place] [facility] [address] [id number] [place] [address]- 5775 Jul, [facility] [place] [facility] [address] [id number] [place] [address]- 0977 Jul, [facility] [place] [facility] [address] [id number] [place] [address]- 1394 Jul, [facility] [place] [facility] [address] [id number] [place] [address]- 5518 Jul, [facility] [place] [facility] [address] [id number] [place] [address]- 9813 Jul, [facility] [place] [facility] [address] [id number] [address]- 5579 Jun, 2012 [facility] [place] [facility] [address] [id number] [address]- 7980 16 Jun, 2012 [facility] [place] [facility] [address] [id number] [address]- 3037 16 Jun, 2012 [facility] [place] [facility] [address] [id number] [place] [address]- 5543 16 Jun, 2012 [facility] [place] [facility] [address] [id number] [address]- 2935 16 Jun, 2012 [facility] [place] [facility] [address] [id number] [place] [address]- 4988 16 Jun, 2012 [facility] [place] [facility] [address] [id number] [address]- 5699 10 Jun, 2012 [facility] [place] [facility] [address] [id number] [address]- 7644 10 Jun, 2012 [facility] [place] [facility] [address] [id number] [place] [address]- 7089 Jun, [facility] [place] [facility] [address] [id number] [place] [address]- 5102 Jun, [facility] [place] [facility] [address] [id number] [place] [address]- 1316 Jun, [facility] [place] [facility] [address] [id number] [place] [address]- 3765 May, 2012 [facility] [place] [facility] [address] [id number] [place] [address]- 6501 25 May, 2012 [facility] [place] [facility] [address] [id number] [place] [address]- 7676 19 May, 2013 [facility] [place] [facility] [address] [id number] [place] [address]- 0376 17 May, 2012 [facility] [place] [facility] [address] [id number] [place] [address]- 0254 May, [facility] [place] [facility] [address] [id number] [place] [address]- 0047 May, [facility] [place] [facility] [address] [id number] [place] [address]- 6739 May, [facility] [place] [facility] [address] [id number] [place] [address]- 8637 05 May, 2013 [facility] [place] [facility] [address] [id number] [place] [address]- 1548 Apr, [facility] [place] [facility] [address] [id number] [place] [address]- 2548 Apr, [facility] [place] [facility] [address] [id number] [place] [address]- 8465 Apr, [facility] [place] [facility] [address] [id number] [place] [address]- 1692 Apr, [facility] [place] [facility] [address] [id number] [place] [address]- 8203 Apr, [facility] [place] [facility] [address] [id number] [place] [address]- 1521 Mar, [facility] [address] [id number] [place] [address]- 5161 Mar, [facility] [address] [id number] [place] [address]- 0163 Mar, [facility] [address] [id number] [place] [address]- 9764 Mar, [facility] [address] [id number] [place] [address]- 2500 Mar, [facility] [address] [id number] [place] [address]- 9123 Mar, [facility] [address] [id number] [place] [address]- 4000 Mar, [facility] [address] [id number] [place] [address]- 2884 Mar, [facility] [address] [id number] [place] [address]- 5911 Feb, [facility] [address] [id number] [place] [address]- 0756 Feb, [facility] [address] [id number] [place] [address]- 6589 January, [facility] [address] [id number] [place] [address]- 1536 January, [facility] [address] [id number] [place] [address]- 6761 Dec, [facility] [place] [facility] [address] [id number] [place] [address]- 2013 Dec, [facility] [place] [facility] [address] [id number] [place] [address]- 2484 Nov, [facility] [place] [facility] [address] [id number] [place] [address]- 5362 Nov, [facility] [address] [id number] [place] [address]- 3439 Nov, [facility] [address] [id number] [place] [address]- 6222 Nov, [facility] [address] [id number] [place] [address]- 9736 Oct, [facility] [address] [id number] [place] [address]- 4749 Oct, [facility] [address] [id number] [place] [address]- 8635 Oct, [facility] [address] [id number] [place] [address]- 6523 Oct, [facility] [address] [id number] [place] [address]- 1499 16 Oct, 2012 [facility] [address] [id number] [place] [address]- 2160 14 Oct, 2012 [facility] [address] [id number] [place] [address]- 6876 08 Oct, 2012 [facility] [address] [facility] [id number] [place] [address]- 8207 07 Oct, 2012 [facility] [address] [id number] [place] [address]- 1932 03 Oct, 2012 [facility] [address] [id number] [place] [address]- 9278 Sep, [facility] [place] [facility] [address] [id number] [place] [address]- 6772 Sep, [facility] [place] [facility] [address] [id number] [place] [address]- 3237 Sep, [facility] [address] [id number] [place] [address]- 8796 Sep, [facility] [place] [facility] [address] [id number] [place] [address]- 7980 17 Sep, 2012 [facility] [address] [id number] [place] [address]- 4777 Sep, [facility] [address] [id number] [place] [address]- 8961 Sep, [facility] [address] [id number] [place] [address]- 2339 Sep, [facility] [address] [id number] [place] [address]- 6688 Aug, [facility] [address] [id number] [place] [address]- 1144 Aug, [facility] [address] [id number] [place] [address]- 6509 Aug, [facility] [address] [id number] [place] [address]- 1541 Aug, [facility] [address] [id number] [place] [address]- 1549 Aug, [facility] [address] [id number] [place] [address]- 0567 Aug, [facility] [address] [id number] [place] [address]- 5468 Aug, [facility] [address] [id number] [place] [address]- 5786 Aug, [facility] [place] [facility] [address] [id number] [place] [address]- 0710 Jul, [facility] [place] [facility] [address] [id number] [place] [address]- 4792 Jul, [facility] [address] [id number] [place] 8046 Jul, [facility] [address] [id number] [address]- 1728 Jul, [facility] [place] [facility] [address] [id number] [place] [address]- 2832 Jul, [facility] [place] [facility] [address] [id number] [place] [address]- 1621 Jul, [facility] [place] [facility] [address] [id number] [place] [address]- 0890 Jun, [facility] [place] [facility] [address] [id number] [place] [address]- 3195 Jun, [facility] [place] [facility] [address] [id number] [place] [address]- 3773 Jun, [facility] [place] [facility] [address] [id number] [place] [address]- 2113 Jun, [facility] [place] [facility] [address] [id number] [place] [address]- 9613 Jun, [facility] [place] [facility] [address] [id number] [place] [address]- 9854 Jun, [facility] [place] [facility] [address] [id number] [place] [address]- 5601 Jun, [facility] [place] [facility] [address] [id number] [place] [address]- 0357 Jun, [facility] [place] [facility] [address] [id number] [place] [address]- 0248 Jun, [facility] [place] [facility] [address] [id number] [place] [address]- 2674 26 May, 2012 [facility] [place] [facility] [address] [id number] [place] [address]- 1610 24 May, 2012 [facility] [place] [facility] [address] [id number] [place] 3963 18 May, 2012 [facility] [place] [facility] [address] [id number] [place] [address]- 1458 30 Apr, 2012 [facility] [place] [facility] [address] [id number] [place] [address]- 5865 Apr, [facility] [place] [facility] [address] [id number] [place] [address]- 0923 Apr, [facility] [place] [facility] [address] [id number] [place] [address]- 5106 Apr, [facility] [place] [facility] [address] [id number] [place] [address]- 4571 Apr, [facility] [place] [facility] [address] [id number] [place] [address]- 9102 Apr, [facility] [place] [facility] [address] [id number] [place] [address]- 0408 Mar, [facility] [place] [facility] [address] [id number] [place] [address]- 2511 Mar, [facility] [place] [facility] [address] [id number] [place] [address]- 0189 Mar, [facility] [place] [facility] [address] [id number] [place] [address]- 8740 Mar, [facility] [place] [facility] [address] [id number] [place] [address]- 6769 Feb, [facility] [place] [facility] [address] [id number] [place] [address]- 3793 Feb, [facility] [place] [facility] [address] [id number] [place] [address]- 6257 Feb, [facility] [place] [facility] [address] [id number] [place] [address]- 9693 Feb, [facility] [place] [facility] [address] [id number] [place] [address]- 0054 Feb, [facility] [place] [facility] [address] [id number] [place] [address]- 1829 January, [facility] [place] [facility] [address] [id number] [place] [address]- 6890 January, [facility] [address] [id number] [place] [address]- 6662 January, [facility] [place] [facility] [address] [id number] [place] [address]- 2636 January, [facility] [place] [facility] [address] [id number] [place] [address]- 8099 January, [facility] [place] [facility] [address] [id number] [place] [address]- 2469 January, [facility] [place] [facility] [address] [id number] [place] [address]- 3700 Dec, [facility] [place] [facility] [address] [id number] [place] [address]- 5082 Dec, [facility] [place] [facility] [address] [id number] [place] [address]- 7071 Dec, [facility] [place] [facility] [address] [id number] [place] [address]- 3078 Dec, [facility] [place] [facility] [address] [id number] [place] [address]- 5705 Dec, [facility] [place] [facility] [address] [id number] [place] [address]- 8628 Nov, [facility] [place] [facility] [address] [id number] [place] [address]- 2596 Nov, [facility] [place] [facility] [address] [id number] [place] [address]- 7288 Nov, [facility] [place] [facility] [address] [id number] [place] [address]- 8137 Nov, [facility] [place] [facility] [address] [id number] [place] [address]- 6720 Oct, [facility] [place] [facility] [address] [id number] [place] [address]- 6569 Oct, [facility] [place] [facility] [address] [id number] [place] [address]- 8377 24 Oct, 2011 [facility] [address] [id number] [place] [address]- 9456 Oct, [facility] [address] [id number] [place] [address]- 5456 Oct, [facility] [address] [id number] [place] [address]- 9736 Sep, [facility] [address] [id number] [place] [address]- 1999 Sep, [facility] [address] [id number] [place] [address]- 3871 Sep, [facility] [address] [id number] [place] [address]- 0683 Sep, [facility] [address] [id number] [place] [address]- 4909 Sep, [facility] [address] [id number] [place] [address]- 6416 Sep, [facility] [address] [id number] [place] [address]- 9947 Aug, [facility] [address] [id number] [place] [address]- 4690 Aug, [facility] [address] [id number] [place] [address]- 8166 Aug, [facility] [address] [id number] [place] [address]- 4131 Jul, [facility] [place] [facility] [address] [id number] [place] [address]- 7986 Jul, [facility] [place] [facility] [address] [id number] [place] [address]- 4131 Jul, [facility] [address] [id number] [place] [address]- 2962 Jul, [facility] [place] [facility] [address] [id number] [place] [address]- 3054 Jun, [facility] [place] [facility] [address] [id number] [place] [address]- 4895 31 Jun, 2011 [facility] [place] [facility] [address] [id number] [place] [address]- 1396 18 Jun, 2011 [facility] [place] [facility] [address] [id number] [place] [address]- 4474 Jun, [facility] [place] [facility] [address] [id number] [place] [address]- 4285 Jun, [facility] [place] [facility] [address] [id number] [place] [address]- 8653 Jun, [facility] [place] [facility] [address] [id number] [place] [address]- 5460 Mar, [facility] [place] [facility] [address] [id number] [place] [address]- 4578 Dec, [facility] [place] [facility] [address] [id number] [place] [address]- 5666 Dec, [facility] [place] [facility] [address] [id number] [place] [address]- 4880 Nov, [facility] [place] [facility] [address] [id number] [place] [address]- 4590 16 Nov, 2010 [facility] [place] [facility] [address] [id number] [place] [address]- 3164 Sep, [facility] [place] [facility] [address] [id number] [place] [address]- 6665 Aug, [facility] [place] [facility] [address] [id number] [place] [address]- 4181 Aug, [facility] [place] [facility] [address] [id number] [place] [address]- 6916 Aug, [facility] [place] [facility] [address] [id number] [address]- 1877 29 Aug, 2010 [facility] [address] [id number] [place] [address] 2546 27 Aug, 2010 [facility] [place] [facility] [address] [id number] [place] [address] 2546 14 Aug, 2010 [facility] [place] [facility] [address] [facility] [id number] [place] [address] 2546 08 Aug, 2010 [facility] [place] [facility] [address] [id number] [place] [address]46 08 Aug, 2010 [facility] [place] [facility] [address] [id number] [place] [address] 07 Aug, 2010 [facility] [place] [facility] [address] [id number] [place] [address] 06 Aug, 2010 [facility] [address] [facility] [id number] [place] [address] 2007 Aug, [facility] [place] [facility] [address] [id number] [place] [address] Aug, [facility] [place] [facility] [address] [id number] [address] Jul, [facility] [place] [facility] [address] [facility] [id number] [place] [address] 254 30 Jul, 2010 [facility] [place] [facility] [address] [id number] [place] [address] 30 Jul, 2010 [facility] [place] [facility] [address] [id number] [place] [address] 2546 17 Jul, 2010 [facility] [place] [facility] [address] [id number] [place] [address] Jul, [facility] [place] [facility] [address] [id number] [address] Jul, [facility] [place] [facility] [address] [facility] [id number] [place] [address] 24 Jun, 2010 [facility] [place] [facility] [address] [id number] [place] [address] 19 Jun, 2010 [facility] [address] [id number] [place] [address] 19 Jun, 2010 [facility] [place] [facility] [address] [id number] [place] [address] 13 Jun, 2010 [facility] [address] [id number] [place] [address] 16 Apr, 2010 [facility] [place] [facility] [address] [id number] [place] [address] 97[address] Mar, [facility] [address] [id number] [place] [address] Feb, [facility] [address] [id number] [place] [address] January, [facility] [address] [id number] [place] [address] 15 Dec, 2009 [facility] [address] [id number] [place] [address] Nov, [facility] [address] [id number] [place] [address] Aug, [facility] [address] [id number] [place] [address] Aug, [facility] [place] [facility] [address] [id number] [place] [address] Aug, [facility] [address] [id number] [place] [address] Jul, [facility] [place] [facility] [address] [id number] [place] [address] Jul, [facility] [place] [facility] [address] [id number] [place] [address] 25[address] Jul, [facility] [place] [facility] [address] [id number] [place] [address] Jun, [facility] [id number] [address] Jun, [facility] [id number] [address] Jun, [facility] [id number] [address] Jun, [facility] [id number] [place] [address] Jun, [facility] [id number] [place] [address] Jun, [facility] [id number] [place] [address] Apr, [facility] [id number] [place] [address] Apr, [facility] [id number] [place] [address] Feb, [facility] [id number] [place] [address] January, [facility] [id number] [address] Dec, IMMUNIZATIONS No Known Immunizations SOCIAL HISTORY Never Assessed REASON FOR VISIT f/u PLAN OF CARE Activity Details Follow Up 3 Months Reason: VITAL SIGNS Height 67 in 2017-08-21 Weight 374.0 lbs 2017-08-21 Heart Rate 68 bpm 2017-08-21 Respiratory Rate 22 2017-08-21 BMI 58.57 kg/m2 2017-08-21 Blood pressure systolic 158 mmHg 2017-08-21 Blood pressure diastolic 72 mmHg 2017-08-21 MEDICATIONS Medication Instructions Dosage Frequency Start Date End Date Duration Status Zofran 4 MG Orally 3 times a day prn nausea and vomiting 1 tablet 5 Active Victoza 18 MG/3ML INJECT 1.8MG SUBCUTANEOUSLY ONCE DAILY 30 Active Ventolin HFA 108 (90 Base) MCG/ACT Inhalation every 4 hrs 2 puffs as needed 4h 17 Active Fluticasone Propionate 50 MCG/ACT Nasally Once a day 1 spray in each nostril 24h 30 days Active Percocet 10-325 MG Orally 4 times a day 1 tablet as needed 6h Jul, 28 days Active Imbruvica 140 MG Orally Once a day 3 capsules in the evening 24h 23 Oct, 2016 Active Atorvastatin Calcium 20 MG Orally Once a day 1 tablet at bedtime 24h Active Abilify 30 MG Orally Once a day 1 tablet 24h 30 days Active Losartan Potassium 100 MG Orally Once a day 1 tablet 24h Active Potassium Chloride Kathi ER 20 MEQ Orally Once a day 2 tablets 24h Active Vitamin D3 1,000 unit 2 capsule by Oral route 1 time per day Apr, Active Aspirin 81 mg 1 tablet by Oral route 1 time per day Apr, Active Flomax 0.4 mg Orally Once a day 1 capsule 30 minutes after the same meal each day 24h 90 Active NovoLog Flexpen 100 UNIT/ML INJECT 30 UNITS SUBCUTANEOUSLY WITH BREAKFAST, 30 UNITS WITH LUNCH AND 40 UNITS WITH EVENING MEAL 30 Active Lantus 100 UNIT/ML Subcutaneous 2 times a day inject 100 units 12h Active Furosemide 40 mg Orally twice a day 1 tablet 12h Mar, 05 days Active Clopidogrel Bisulfate 75 MG Orally Once a day 1 tablet 24h Active Ambien 10 MG Orally at bedtime as needed for sleep 1 tablet Nov, 30 days Active Allopurinol 300 MG Orally Once a day 1 tablet 24h Mar, 90 days Active Incruse Ellipta 62.5 MCG/INH Inhalation Once a day 1 puff 24h 30 Active Metoprolol Succinate ER 50 mg Orally twice a day 1 tablet 12h 90 Active Voltaren 1 % Transdermal every 4-6 hours as needed 4grams to knee and hip 5 Active Clonidine HCl 0.1 MG Orally 2 times a day 1 tablet 12h 90 Active Naproxen 500 MG TAKE ONE TABLET BY MOUTH EVERY 12 HOURS NEEDED FOR HEADACHE 30 Active Zetia 10 MG Orally Once a day 1 tablet 24h Active Valium 5 MG Orally Twice a day as needed for anxiety 1 tablet Oct, 30 days Active Nexium 40 MG Orally Once a day 1 capsule 24h 90 Active Symbicort 80-4.5 MCG/ACT Inhalation Twice a day 2 puffs 12h 30 Active Trintellix 20 MG Orally Once a day 1 tablet 24h 30 days Active Gabapentin 300 MG Orally 3 times a day 2 capsules 8h Mar, Active RESULTS No Results PROCEDURES Procedure Date Ordered Result Body Site [facility]IS[facility] ESTABLISHED PATIENT Aug 21, 2017 INSTRUCTIONS MEDICATIONS ADMINISTERED No Known Medications MEDICAL (GENERAL) HISTORY Type Description Date Medical History type II diabetes Medical History coronary artery disease stress test 01/5015 Medical History chronic obstructive pulmonary disease (COPD) Medical History gastroesophageal reflux disease (GERD) Medical History acute renal failure Medical History erectile dysfunction Medical History hyperlipidemia Medical History obesity Medical History skin cancer-basal cell R buddhist (removed) Medical History Arthritis Medical History degenerative [...] 2009 Surgical History colonoscopy 2009 ([facility]), 2013 ([facility]) Surgical History heart 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 04/2014 Surgical History carotid US 05/2014 Surgical History resection of skin cancer from Right buddhist Surgical History Biopsy of Lung Bilateral/Left lung lymph node 09/2016 Surgical History Bone Marrow Biopsy Surgical History port in the right chest wall 12/2016 Hospitalization History [facility] low potassium, low magnesium, chest painina 01/2015 Hospitalization History inability to urinate 09/16/15 Hospitalization History [facility] early Hospitalization History hyperkalemia 10/2017 Hospitalization History fluid in lung
--- OUTSIDE RECORDS SUMMARY | 2018-08-08 13:10 | XMS REPORT ---
Author Author ROSELINE LUIS Organization [facility] Address [address] [place] [address] Care Team Providers Care Chartered Wealth Manager Name Role Phone ROSELINE LUIS Unavailable PROBLEMS Type Condition ICD9-CM Code HIN17-LV Code Onset Dates Condition Status SNOMED Code Problem Chronic lymphocytic leukemia C91.10 Active 88516581 Problem Insomnia, unspecified type G47.00 Active 306634112 Problem Lymphocytosis D72.820 Active 99886359 Problem Anxiety F41.9 Active 93212015 Problem Eye exam abnormal R93.8 Active 306690042 Problem Morbid obesity E66.01 Active 532601685 Problem Diabetic polyneuropathy associated with type 2 diabetes mellitus E11.42 Active 26762357 Problem Essential hypertension I10 Active 29354576 Problem Falling R29.6 Active 080999217 Problem 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 Active 823292105 Problem Cough R05 Active 15412246 Problem Dysuria R30.0 Active 46681326 Problem Eustachian tube dysfunction, unspecified laterality H69.80 Active 75551733 Problem Bilateral primary osteoarthritis of knee M17.0 Active 423195465 Problem Polyneuropathy associated with underlying disease G63 Active 752217250 Problem Anemia of chronic illness D63.8 Active 839868610 Problem Retinal edema H35.81 Active 0574730 Problem DM neuro manif type II E11.49 Active 74992512 Problem Diabetes E11.9 Active 58097616 Problem Hypokalemia E87.6 Active 79417423 Problem Benign prostatic hyperplasia with lower urinary tract symptoms, unspecified morphology N40.1 Active 093210827 Problem Reactive airway disease J45.909 Active 610997438989 Problem Bipolar I disorder, most recent episode (or current) mixed, moderate F31.62 Active 96510833 Problem Chronic pain G89.29 Active 14662756 Problem Leukocytosis D72.829 Active 838821201 ALLERGIES No Information ENCOUNTERS Encounter Location Date Diagnosis [facility] [id number] [place] [address] 91286- 9372 Dec, [place] [id number] [place] [address] 33471- 7282 Dec, [place] [id number] [place] [address] 13814- 1289 Dec, Chronic pain G89.29 [place] [place] [id number] [place] [address] 34230- 0558 Dec, DM neuro manif type II E11.49 ; Right flank pain R10.9 ; assisted 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 Z79.891 ; Encounter for medication monitoring Z51.81 and BMI 50.0-59.9, adult Z68.43 [facility] [id number] [place] [address] 81087- 7612 Dec, Bipolar I disorder, most recent episode (or current) mixed, moderate F31.62 [place] [place] [id number] [place] [address] 87067- 4431 Nov, Bipolar I disorder, most recent episode (or current) mixed, moderate F31.62 [facility] [place] [id number] [place] [address] 81224- 6040 Nov, Chronic pain G89.29 [facility] [id number] [place] [address] 26686- 9019 Nov, Bipolar I disorder, most recent episode (or current) mixed, moderate F31.62 [facility] [place] [id number] [place] [address] 78798- 6610 Nov, Hypokalemia E87.6 [facility] [place] [id number] [place] [address] 70515- 3329 Nov, Bipolar I disorder, most recent episode (or current) mixed, moderate F31.62 [facility] [place] [id number] [place] [address] 57131- 9161 Oct, Chronic pain G89.29 [place] [id number] [place] [address] 35629- 5776 Oct, BMI 50.0-59.9, adult Z68.43 and Bipolar I disorder, most recent episode (or current) mixed, moderate F31.62 [facility] [id number] [place] [address] 53171- 8498 Oct, Bipolar I disorder, most recent episode (or current) mixed, moderate F31.62 [place] [address] 04096- 0166 Oct, [place] [address] 08406- 4290 Oct, Hypokalemia E87.6 [facility] [place] [id number] [place] [address] 36003- 4164 Oct, DM neuro manif type II E11.49 [place] [address] 65287- 0948 Oct, Bipolar I disorder, most recent episode (or current) mixed, moderate F31.62 [facility] [place] [id number] [place] [address] 29531- 6549 Oct, Bipolar I disorder, most recent episode (or current) mixed, moderate F31.62 [facility] [place] [id number] [place] [address] 72392- 9407 14 Oct, 2017 Hyperkalemia E87.5 ; Falling R29.6 ; BMI 50.0-59.9, adult Z68.43 and Acute left ankle pain M25.572 [facility] [id number] [place] [address] 00776- 3994 Oct, DM neuro manif type II E11.49 [facility] [place] [id number] [place] [address] 14193- 0647 Oct, [facility] [address] 67891- 9244 Sep, Chronic pain G89.29 [place] [id number] [place] [address] 83698- 3753 Sep, [place] [id number] [place] [address] 32772- 8659 Sep, Bilateral primary osteoarthritis of knee M17.[address] 22944- 2401 Sep, Generalized edema R60.1 [place] [id number] [place] [address] 36910- 8893 Sep, Bipolar I disorder, most recent episode (or current) mixed, moderate F31.62 [facility] [place] [id number] [place] [address] 27479- 8696 Sep, Hypoxia R09.02 ; Other hypervolemia E87.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 ; Anemia of chronic illness D63.8 and BMI 50.0- 59.9, adult Z68.43 [facility] [id number] [place] [address] 11786- 7878 Sep, [place] [id number] [place] [address] 77424- 2485 Sep, Bipolar I disorder, most recent episode (or current) mixed, moderate F31.62 [facility] [id number] [place] [address] 90760- 8690 Aug, Chronic pain G89.29 [facility] [id number] [place] [address] 79044- 7523 Aug, Generalized edema R60.1 [place] [id number] [place] [address] 25240- 4754 Aug, [place] [address] 41728- 3449 Aug, [facility] [address] [place] [address]- 1449 14 Aug, 2017 Bipolar I disorder, most recent episode (or current) mixed, moderate F31.62 [facility] [address] [place] [address]- 9889 Aug, Bipolar I disorder, most recent episode (or current) mixed, moderate F31.62 [facility] [id number] [place] [address] 77008- 2362 04 Aug, 2017 Chronic pain G89.29 [place] [id number] [place] [address] 64500- 8878 30 Jul, 2017 Bipolar I disorder, most recent episode (or current) mixed, moderate F31.62 [place] [id number] [place] [address] 41682- 9538 Jul, Bipolar I disorder, most recent episode (or current) mixed, moderate F31.62 and BMI 60.0-69.9, adult Z68.44 [place] [id number] [place] [address] 94206- 8263 16 Jul, 2017 Bipolar I disorder, most recent episode (or current) mixed, moderate F31.62 [facility] [id number] [place] [address] 34443- 2509 06 Jul, 2017 Chronic pain G89.29 [facility] [id number] [place] [address] 21978- 9192 Jul, Bipolar I disorder, most recent episode (or current) mixed, moderate F31.62 [place] [id number] [place] [address] 03416- 5984 Jun, Polyneuropathy associated with underlying disease G63 and Diabetes E11.9 [facility] [id number] [place] [address] 41949- 4840 16 Jun, 2017 Bipolar I disorder, most recent episode (or current) mixed, moderate F31.62 [place] [id number] [address]- 4295 09 Jun, 2017 Chronic pain G89.29 [facility] [id number] [place] [address] 466390- 2598 27 May, 2017 Bipolar I disorder, most recent episode (or current) mixed, moderate F31.62 [facility] [id number] [place] [address] 59155- 9505 21 May, 2017 Bipolar I disorder, most recent episode (or current) mixed, moderate F31.62 [facility] [id number] [place] [address] 93279- 8923 20 May, 2017 Diabetic polyneuropathy associated with type 2 diabetes mellitus E11.42 [facility] [id number] [place] [address] 71504- 9626 18 May, 2017 Bipolar I disorder, most recent episode (or current) mixed, moderate F31.62 [facility] [id number] [place] [address] 83467- 3335 13 May, 2017 Bipolar I disorder, most recent episode (or current) mixed, moderate F31.62 [facility] [id number] [place] [address] 80542- 7445 12 May, 2017 Chronic pain G89.29 [facility] [id number] [place] [address] 17373- 8387 Apr, Bipolar I disorder, most recent episode (or current) mixed, moderate F31.62 [facility] [id number] [place] [address] 95966- 2556 Apr, [facility] [id number] [place] [address] 79608- 8336 Apr, Chronic pain G89.29 and DM neuro manif type II E11.49 [facility] [id number] [place] [address] 70077- 0617 Apr, [facility] [id number] [place] [address] 79794- 8193 Apr, Bipolar I disorder, most recent episode (or current) mixed, moderate F31.62 [facility] [id number] [place] [address] 21587- 7586 Apr, Chronic pain G89.29 [facility] [id number] [place] [address] 49584- 7616 Apr, Iliotibial band syndrome, left M76.32 [facility] [id number] [place] [address] 970967- 7176 Apr, Bipolar I disorder, most recent episode (or current) mixed, moderate F31.62 [facility] [id number] [place] [address] 31502- 8182 Mar, Bipolar I disorder, most recent episode (or current) mixed, moderate F31.62 [facility] [id number] [place] [address] 65431- 2854 Mar, Bipolar I disorder, most recent episode (or current) mixed, moderate F31.62 [facility] [id number] [place] [address] 63530- 9096 Mar, [facility] [id number] [place] [address] 01344- 8509 Mar, Bipolar I disorder, most recent episode (or current) mixed, moderate F31.62 [facility] [id number] [place] [address] 89110- 1476 Mar, Chronic pain G89.29 [facility] [id number] [place] [address] 98977- 1268 Mar, Bipolar I disorder, most recent episode (or current) mixed, moderate F31.62 [facility] [id number] [place] [address] 58582- 5486 Mar, Bipolar I disorder, most recent episode (or current) mixed, moderate F31.62 [facility] [id number] [place] [address] 18776- 6206 Mar, Acute pain of left knee M25.562 ; Left hip pain M25.552 ; Generalized edema R60.1 and Tongue swelling R22.0 [facility] [id number] [place] [address] 04877- 7791 Mar, [facility] [id number] [place] [address] 77965- 9798 Feb, Chronic pain G89.29 [facility] [id number] [place] [address] 45108- 7410 Feb, Diabetes E11.9 [place] [address] 85700- 3356 January, Chronic pain G89.29 [facility] [id number] [place] [address] 80763- 4284 January, [place] [id number] [place] [address] 41155- 9978 January, Bipolar I disorder, most recent episode (or current) mixed, moderate F31.62 [place] [id number] [place] [address] 55921- 9437 Dec, Bipolar I disorder, most recent episode (or current) mixed, moderate F31.62 [place] [id number] [place] [address] 07697- 0419 Dec, Chronic pain G89.29 [facility] [id number] [place] [address] 95403- 0717 Dec, Bipolar I disorder, most recent episode (or current) mixed, moderate F31.62 [place] [id number] [place] [address] 84905- 6297 Dec, Diabetes E11.9 ; Essential hypertension I10 ; Chronic pain G89.29 and Morbid obesity E66.01 [facility] [id number] [place] [address] 21103- 1377 Dec, [facility] [address] [place] [address]- 6356 Dec, Bipolar I disorder, most recent episode (or current) mixed, moderate F31.62 [facility] [address] [place] [address] 2546 Dec, Bipolar I disorder, most recent episode (or current) mixed, moderate F31.62 [facility] [address] [place] [address]- 8316 Nov, Chronic pain G89.29 [facility] [address] [place] [address] 2546 Nov, Bipolar I disorder, most recent episode (or current) mixed, moderate F31.62 [facility] [address] [place] [address]- 3296 Nov, [facility] [address] [place] [address]- 9726 Nov, Bipolar I disorder, most recent episode (or current) mixed, moderate F31.62 [facility] [address], [place] [address]- 0306 Nov, Bipolar I disorder, most recent episode (or current) mixed, moderate F31.62 [facility] [address], [place] [address]- 0626 Nov, [facility] [address] [place] [address]- 7226 Nov, [facility] [address], [place] [address] 2546 Nov, [facility] [address] [place] [address]- 4006 Oct, Chronic pain G89.29 [facility] [address] [place] [address]- 5666 Oct, Bipolar I disorder, most recent episode (or current) mixed, moderate F31.62 [facility] [id number] [place] [address] 01999- 4859 Oct, [facility] [id number] [place] [address] 66470- 2248 Oct, Chronic pain G89.29 ; Diabetes E11.9 ; Anxiety F41.9 and 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 [facility] [id number] [place] [address] 84466- 2320 Oct, [facility] [id number] [place] [address] 24935- 9262 Oct, Diabetes E11.9 [facility] [id number] [place] [address] 32475- 5747 Oct, Bipolar I disorder, most recent episode (or current) mixed, moderate F31.62 [facility] [id number] [place] [address] 63093- 4241 Sep, Chronic pain G89.29 [facility] [id number] [place] [address] 38589- 6387 Sep, Chronic pain G89.29 [facility] [id number] [place] [address] 17479- 8748 Aug, Chronic pain G89.29 [facility] [id number] [place] [address] 22821- 5123 Jul, [facility] [id number] [place] [address] 77613- 2973 Jul, Diabetes E11.9 [facility] [id number] [place] [address] 19471- 4614 Jul, Chronic pain G89.29 [facility] [id number] [place] [address] 24999- 7913 Jul, Bipolar I disorder, most recent episode (or current) mixed, moderate F31.62 [facility] [id number] [place] [address] 81241- 8430 Jun, Bipolar I disorder, most recent episode (or current) mixed, moderate F31.62 [place] [id number] [place] [address] 25099- 0135 Jun, [place] [id number] [place] [address] 73909- 2264 Jun, Bipolar I disorder, most recent episode (or current) mixed, moderate F31.62 [place] [id number] [place] [address] 56754- 9940 May, Insomnia, unspecified type G47.00 [place] [address] 99267- 5031 May, Bipolar I disorder, most recent episode (or current) mixed, moderate F31.62 [place] [address] 28112- 1272 May, [place] [address] 84350- 3152 May, Bipolar I disorder, most recent episode (or current) mixed, moderate F31.62 [place] [id number] [place] [address] 53098- 5943 May, Diabetes E11.9 and Essential hypertension I10 [facility] [id number] [place] [address] 85621- 3790 Apr, Chronic pain G89.29 [place] [address] 76029- 5272 Apr, Bipolar I disorder, most recent episode (or current) mixed, moderate F31.62 [facility] [place] [id number] [place] [address] 69908- 8936 Apr, [place] [id number] [place] [address] 72958- 2878 Apr, [place] [address] 49391- 7896 Mar, Chronic pain G89.29 ; Headache, unspecified headache type R51 ; Neuropathy G62.9 ; Pain of right hip joint M25.551 and Essential hypertension I10 [facility] [id number] [place] [address] 75887- 0651 Mar, Chronic pain G89.29 [place] [id number] [place] [address] 63278- 4329 Mar, Bipolar I disorder, most recent episode (or current) mixed, moderate F31.62 [place] [address] 63097- 7191 Feb, Bipolar I disorder, most recent episode (or current) mixed, moderate F31.62 and Insomnia, unspecified type G47.00 [place] [address] 76285- 3066 Feb, Chronic pain G89.29 [place] [address] 26114- 1958 Feb, Bipolar I disorder, most recent episode (or current) mixed, moderate F31.62 [facility] [place] [id number] [place] [address] 20863- 9319 January, Bipolar I disorder, most recent episode (or current) mixed, moderate F31.62 [facility] [id number] [place] [address] 64010- 0838 January, Chronic pain G89.29 [place] [address] 90043- 2783 January, Chronic pain G89.29 and Essential hypertension I10 [place] [address] 13827- 5941 January, Bipolar I disorder, most recent episode (or current) mixed, moderate F31.62 [facility] [id number] [place] [address] 94192- 7032 Dec, [place] [id number], [place] [address]- 3634 Dec, [facility] [id number] [place] [address] 69065- 9798 Dec, [facility] [address], [place] [address]- 9181 Dec, [facility] [id number] [place] [address] 25641- 8264 Nov, Reactive airway disease J45.909 [facility] [id number] [place] [address] 97977- 0588 Nov, [facility] [id number] [place] [address] 29683- 6718 Nov, [facility] [id number] [place] [address] 49672- 6299 Nov, [facility] [id number] [place] [address] 40220- 7202 Nov, [facility] [id number] [place] [address] 72358- 5491 Nov, Onychomycosis B35.1 ; Hammertoe M20.40 ; Lehr or callus L84 and DM neuro manif type II E11.49 [facility] [id number] [place] [address] 11899- 1457 Nov, Chronic pain G89.29 ; Leukocytosis D72.829 and Diabetes E11.9 [facility] [address], [place] [address]- 3648 Nov, [facility] [id number] [place] [address] 38376- 7394 Oct, Bronchitis J40 [facility] [id number] [place] [address] 77940- 5291 Oct, [facility] [id number] [place] [address] 97677- 5396 Oct, [facility] [id number] [place] [address] 49240- 1354 Oct, Mastoiditis, unspecified laterality H70.90 and Type 2 diabetes mellitus with complication E11.8 [facility] [id number] [place] [address] 21598- 7941 Sep, [facility] [address] 99336- 0713 Sep, Dysuria R30.0 ; Cough R05 ; Benign prostatic hyperplasia with lower urinary tract symptoms, unspecified morphology N40.1 ; Hypokalemia E87.6 and Eustachian tube dysfunction, unspecified laterality H69.80 [facility] [id number] [place] [address] 97681- 1063 Sep, Moderate mixed bipolar I disorder F31.62 [facility] [place] [address] 39589- 3852 Sep, Hypokalemia E87.6 [facility] [id number] [place] [address] 42270- 7955 Sep, [place] [id number] [place] [address] 39192- 9474 Sep, Upper respiratory tract infection, unspecified type J06.9 [facility] [id number] [place] [address] 22621- 5639 Aug, [facility] [id number] [place] [address] 30332- 0210 Aug, Dysuria R30.0 [place] [address] 76433- 1499 Aug, [facility] [id number] [place] [address] [id number]- [phone] Jul, [facility] [id number] [place] [address] [id number]- [phone] Jul, [facility] [id number] [place] [address] Jul, [facility] [id number] [place] [address] Jul, [facility] [id number] [place] [address] Jun, [facility] [id number] [place] [address] [id number]- [phone] Jun, [facility] [id number] [place] [address] Jun, [facility] [id number] [place] [address] [id number]- [phone] May, [facility] [id number] [place] [address] [id number]- [phone] May, Bipolar I disorder, most recent episode (or current) mixed, moderate 296.62 [facility] [id number] [address] May, [facility] [id number] [place] [address] [id number]- 0576 May, Bipolar I disorder, most recent episode (or current) mixed, moderate 296.62 and Major depressive disorder, recurrent episode, severe, specified as with psychotic behavior 296.34 [facility] [address], [place] [address] May, Bipolar I disorder, most recent episode (or current) mixed, moderate 296.62 [facility] [address], [place] [address] 0698 May, [facility] [address] [address]- 6[address] Apr, [facility] [address], [place] [address] 4206 Apr, [facility] [id number] [place] [address] 06831- 9306 Apr, Unspecified disorder of kidney and ureter 593.9 and Diabetes mellitus type 2, uncontrolled 250.02 [facility] [id number] [place] [address] 92799- 7854 Apr, [facility] [id number] [place] [address] 31912- 6353 Apr, [facility] [id number] [place] [address] 13849- 1731 Apr, [facility] [id number] [place] [address] 82223- 2332 Apr, [facility] [id number] [place] [address] 90722- 6463 Apr, Diabetes mellitus type II, uncontrolled 250.02 [facility] [id number] [place] [address] 31006- 9083 Apr, [facility] [id number] [place] [address] 92363- 7987 Mar, [facility] [id number] [place] [address] 92103- 0909 Mar, [facility] [id number] [place] [address] 72805- 9851 Mar, [facility] [id number] [place] [address] 55287- 5515 Mar, Major depressive disorder, recurrent episode, severe, specified as with psychotic behavior 296.34 and Bipolar I disorder, most recent episode (or current) mixed, moderate 296.62 [facility] [id number] [place] [address] 16869- 7849 Mar, Diabetes 250.00 ; Anuria 788.5 ; Nausea and vomiting 787.01 and Diarrhea 787.91 [facility] [id number] [place] [address] 38185- 1663 Mar, Diabetes 250.00 [facility] [address], [place] [address]- 0470 Mar, [facility] [id number] [place] [address] 22213- 8194 Mar, Diabetes 250.00 [facility] [address], [place] [address]- 7572 Mar, [facility] [id number] [place] [address] 47593- 3901 Mar, [facility] [id number] [place] [address] 62873- 9850 Mar, [facility] [id number] [place] [address] 89990- 3360 Mar, [facility] [id number] [place] [address] 12172- 7158 Mar, Bipolar I disorder, most recent episode (or current) mixed, moderate 296.62 and Major depressive disorder, recurrent episode, severe, specified as with psychotic behavior 296.34 [facility] [id number] [place] [address] 13129- 7991 Mar, Magnesium deficiency 275.2 ; Hypokalemia 276.8 ; Nausea & vomiting 787.01 and Diabetes mellitus type 2, uncontrolled 250.02 [facility] [address], [place] [address]- 1135 Feb, [facility] [id number] [place] [address] 72269- 0994 Feb, Bipolar I disorder, most recent episode (or current) mixed, moderate 296.62 [facility] [id number] [place] [address] 72387- 4090 Feb, Nausea and vomiting 787.01 ; Left elbow pain 719.42 ; Anuria 788.5 and Diabetes 250.00 [facility] [address], [place] [address]- 8881 Feb, [facility] [address], [place] [address]- 8156 Feb, Hypopotassemia 276.8 and Hypokalemia 276.8 [facility] [id number] [place] [address] 61951- 0745 Feb, Hypopotassemia 276.8 and Hypokalemia 276.8 [facility] [id number] [place] [address] 23279- 2101 Feb, Seborrheic keratoses 702.19 [facility] [id number] [place] [address] 49200- 1529 Feb, Hypopotassemia 276.8 and Low magnesium levels 275.2 [facility] [id number] [place] [address] 99947- 0577 January, [facility] [id number] [place] [address] 17858- 0637 January, [facility] [id number] [place] [address] 96154- 5386 January, [facility] [id number] [place] [address] 86472- 7212 January, Scalp lesion 709.9 [facility] [id number] [place] [address] 00112- 3165 January, [facility] [id number] [place] [address] 24265- 6791 Dec, Tear of medial cartilage or meniscus of knee, current 836.0 and 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 [facility] [address], [place] [address]- 3633 Dec, [facility] [id number] [place] [address] 30371- 2988 Dec, [facility] [address], [place] [address]- 9701 Dec, Squamous cell carcinoma, 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 [facility] [place] [facility] [address] [id number] [place] [address]- 8486 14 Dec, 2014 [facility] [place] [facility] [address] [id number] [place] [address]- 0596 Dec, [facility] [place] [facility] [address] [id number] [place] [address]- 4066 Nov, [facility] [place] [facility] [address] [id number] [place] [address]- 3136 Nov, [facility] [place] [facility] [address] [id number] [place] [address]- 2752 Nov, [facility] [place] [facility] [address] [id number] [place] [address]- 5988 Nov, [facility] [place] [facility] [address] [facility] [id number] [place] [address]- 5735 Nov, [facility] [place] [facility] [address] [facility] [id number], [place] [address]- 8766 Nov, [facility] [place] [facility] [address] [facility] [id number] [place] [address]- 2568 Nov, [facility] [place] [facility] [address] [facility] [id number], [place] [address]- 0617 Nov, [facility] [place] [facility] [address] [facility] [id number], [place] [address]- 4910 Nov, [facility] [place] [facility] [address] [facility] [id number], [place] [address]- 5249 Nov, [facility] [place] [facility] [address] [facility] [id number] [place] [address]- 6301 Nov, [facility] [place] [facility] [address] [facility] [id number], [place] [address]- 6483 Nov, [facility] [place] [facility] [address] [facility] [id number], [place] [address]- 3338 Oct, [facility] [place] [facility] [address] [facility] [id number], [place] [address]- 4677 Oct, 2014 [facility] [place] [facility] [address] [id number] [place] [address]- 8147 Oct, 2014 [facility] [place] [facility] [address] [facility] [id number] [place] [address]- 8936 Oct, 2014 [facility] [place] [facility] [address] [facility] [id number] [place] [address]- 7156 Oct, 2014 [facility] [place] [facility] [address] [facility] [id number] [place] [address]- 3685 Oct, 2014 [facility] [place] [facility] [address] [facility] [id number] [place] [address]- 1909 Oct, 2014 [facility] [place] [facility] [id number] [place] [address]- 1622 Oct, 2014 [facility] [place] [facility] [id number] [place] [address]- 0696 Oct, [facility] [place] [facility] [address] [facility] [id number], [place] [address]- 8111 Sep, [facility] [place] [facility] [id number] [place] [address]- 3048 Sep, [facility] [place] [facility] [id number], [place] [address]- 3040 Sep, [facility] [place] [facility] [id number], [place] [address]- 2970 Sep, [facility] [place] [facility] [address] [facility] [id number], [place] [address]- 9146 Sep, [facility] [place] [facility] [address] [facility] [id number] [place] [address]- 9425 Sep, [facility] [place] [facility] [address] [facility] [id number] [place] [address]- 3438 Sep, [facility] [place] [facility] [address] [facility] [id number], [place] [address]- 1580 Sep, [facility] [place] [facility] [address] [id number] [place] [address]- 0211 Sep, [facility] [place] [facility] [address] [id number] [place] [address]- 0397 Sep, [facility] [place] [facility] [address] [id number] [place] [address]- 3221 Sep, [facility] [place] [facility] [address] [id number] [place] [address]- 2512 Sep, [facility] [place] [facility] [address] [id number] [place] [address]- 5047 Sep, [facility] [place] [facility] [address] [id number] [place] [address]- 4913 Sep, [facility] [place] [facility] [address] [id number] [place] [address]- 0371 Sep, [facility] [place] [facility] [address] [id number] [place] [address]- 9262 Sep, [facility] [place] [facility] [address] [id number] [place] [address]- 7753 Aug, [facility] [place] [facility] [address] [id number] [place] [address]- 6341 Aug, [facility] [place] [facility] [address] [id number] [place] [address]- 9710 Aug, [facility] [place] [facility] [address] [id number], [place] [address]- 9747 31 Aug, 2014 [facility] [place] [facility] [address] [id number] [place] [address]- 6304 31 Aug, 2014 [facility] [place] [facility] [address] [id number] [place] [address]- 8697 31 Aug, 2014 [facility] [place] [facility] [address] [id number] [place] [address]- 4503 17 Aug, 2014 [facility] [place] [facility] [address] [id number], [place] [address]- 2769 Aug, [facility] [address] [id number] [place] [address]- 4376 Aug, [facility] [address] [id number] [place] [address]- 2226 Aug, [facility] [address] [id number] [place] [address]- 1943 Aug, [facility] [address] [place] [id number] Aug, [facility] [place] [facility] [address] [id number] [place] [address]- 1064 Aug, [facility] [address] [id number] [place] [address]- 1805 Aug, [facility] [address] [id number] [place] [address]- 0742 Aug, [facility] [address] [id number] [place] [address]- 4587 Aug, [facility] [address] [id number] [place] [address]- 5786 Aug, [facility] [address] [id number] [place] [address]- 6653 Aug, [facility] [address] [id number] [place] [address]- 4517 Aug, [facility] [place] [facility] [address] [id number] [place] [address]- 9656 Aug, [facility] [place] [facility] [address] [id number] [place] [address]- 2226 Aug, [facility] [place] [facility] [address] [id number] [place] [address]- 2971 Aug, [facility] [place] [facility] [address] [id number] [place] [address]- 9541 Aug, [facility] [address] [id number] [place] [address]- 8802 Aug, [facility] [place] [facility] [address] [id number] [place] [address]- 3853 Aug, [facility] [place] [facility] [address] [id number] [place] [address]- 3840 Aug, [facility] [place] [facility] [address] [id number] [place] 3803 Aug, [facility] [place] [facility] [address] [id number] [place] [address]- 1881 Aug, [facility] [place] [facility] [address] [id number] [place] [address]- 6709 Aug, [facility] [place] [facility] [address] [id number] [place] [address]- 1960 Aug, [facility] [place] [facility] [address] [id number] [place] [address]- 8745 Jul, [facility] [place] [facility] [address] [id number] [place] [address]- 0192 Jul, [facility] [place] [facility] [address] [id number] [place] [address]- 4073 Jul, [facility] [place] [facility] [address] [facility] [id number] [place] [address]- 8051 Jul, [facility] [place] [facility] [address] [id number] [place] [address]- 1683 Jul, [facility] [place] [facility] [address] [id number] [place] [address]- 7021 Jul, [facility] [place] [facility] [address] [id number] [place] [address]- 1012 Jul, [facility] [place] [facility] [address] [id number] [place] [address]- 4441 Jul, [facility] [place] [facility] [address] [id number] [place] [address]- 0958 Jul, [facility] [place] [facility] [address] [id number] [place] [address]- 5030 Jul, [facility] [place] [facility] [address] [id number] [place] 6647 Jun, [facility] [place] [facility] [address] [id number] [place] 0043 Jun, [facility] [place] [facility] [address] [id number] [place] [address]- 6385 Jun, [facility] [place] [facility] [address] [id number] [place] [address]- 9753 Jun, [facility] [place] [facility] [address] [id number] [place] [address]- 9040 Jun, [facility] [place] [facility] [address] [id number] [place] [address]- 7435 Jun, [facility] [place] [facility] [address] [id number] [place] [address]- 7960 Jun, [facility] [place] [facility] [address] [id number] [place] [address]- 4425 Jun, [facility] [place] [facility] [address] [id number] [place] [address]- 5914 Jun, [facility] [place] [facility] [address] [id number] [place] [address]- 4527 Jun, [facility] [place] [facility] [address] [id number], [place] [address]- 6771 29 May, 2014 [facility] [place] [facility] [address] [id number] [place] [address]- 1503 29 May, 2014 [facility] [place] [facility] [address] [id number] [place] [address]- 7117 May, [facility] [place] [facility] [address] [id number] [place] [address]- 4967 May, [facility] [place] [facility] [address] [id number] [place] [address]- 0205 17 May, 2013 [facility] [place] [facility] [address] [id number] [place] [address] 2546 17 May, 2013 [facility] [place] [facility] [address] [id number] [place] [address] 2546 15 May, 2013 [facility] [place] [facility] [address] [id number] [place] [address] 2546 15 May, 2013 [facility] [place] [facility] [address] [id number] [place] [address] 2546 15 May, 2013 [facility] [place] [facility] [address] [id number] [place] [address]- 1069 15 May, 2013 [facility] [place] [facility] [address] [id number] [place] [address]- 7473 10 May, 2013 [facility] [place] [facility] [address] [id number] [place] [address]- 2900 10 May, 2013 [facility] [place] [facility] [address] [id number] [place] [address]- 6723 09 May, 2013 [facility] [place] [facility] [address] [id number] [place] [address] 2542 09 May, 2013 [facility] [place] [facility] [address] [id number] [place] [address]- 2544 04 May, 2014 [facility] [place] [facility] [address] [id number] [place] [address] 2547 May, 2013 [facility] [place] [facility] [address] [id number] [place] [address]- 3394 Apr, [facility] [place] [facility] [address] [id number] [place] [address]- 2543 Apr, [facility] [place] [facility] [address] [id number] [place] [address]- 0382 Apr, [facility] [place] [facility] [address] [id number] [place] [address]- 9098 Apr, [facility] [place] [facility] [address] [id number] [place] [address]- 9290 Apr, [facility] [place] [facility] [address] [id number] [facility] [place] [address]- 0538 Apr, [facility] [place] [facility] [address] [id number] [place] [address]- 6932 Apr, [facility] [place] [facility] [address] [id number] [place] [address]- 2668 Apr, [facility] [place] [facility] [address] [id number] [place] [address]- 2815 Apr, [facility] [place] [facility] [address] [id number] [place] [address]- 8624 Apr, [facility] [place] [facility] [address] [id number] [place] [address]- 8529 Apr, [facility] [place] [facility] [address] [id number] [place] [address]- 8661 Apr, [facility] [place] [facility] [address] [id number] [place] [address]- 3682 Apr, [facility] [place] [facility] [address] [id number] [place] [address]- 0729 Apr, [facility] [place] [facility] [address] [id number] [place] [address]- 9841 Apr, [facility] [place] [facility] [address] [id number] [place] [address]- 2617 Mar, [facility] [place] [facility] [address] [id number] [place] [address]- 3268 Mar, [facility] [place] [facility] [address] [id number] [place] [address]- 4606 Mar, [facility] [place] [facility] [address] [id number] [place] [address]- 1683 Mar, [facility] [place] [facility] [address] [id number] [place] [address]- 0483 Mar, [facility] [place] [facility] [address] [id number] [place] [address]- 5944 Mar, 2013 [facility] [place] [facility] [address] [id number] [place] [address]- 5373 Mar, 2013 [facility] [place] [facility] [address] [id number] [place] [address]- 8465 Mar, 2013 [facility] [place] [facility] [address] [id number] [place] [address]- 4919 Mar, 2013 [facility] [place] [facility] [address] [id number] [place] [address]- 2038 Mar, 2013 [facility] [place] [facility] [address] [id number] [place] [address]- 3972 Mar, 2013 [facility] [place] [facility] [address] [id number] [place] [address]- 0682 Mar, 2013 [facility] [place] [facility] [address] [id number] [place] [address]- 6577 Mar, 2013 [facility] [place] [facility] [address] [id number] [place] [address]- 9538 Mar, 2013 [facility] [place] [facility] [address] [id number] [place] [address]- 4551 Mar, 2013 [facility] [place] [facility] [address] [id number] [place] [address]- 9089 Mar, 2013 [facility] [place] [facility] [address] [id number] [place] [address]- 8499 Mar, [facility] [place] [facility] [address] [id number] [place] [address]- 3452 Mar, [facility] [place] [facility] [address] [id number] [place] [address]- 9322 Feb, [facility] [place] [facility] [address] [id number] [place] [address]- 2337 Feb, [facility] [place] [facility] [address] [id number] [place] [address]- 4575 Feb, [facility] [place] [facility] [address] [id number] [place] [address]- 8782 Feb, [facility] [place] [facility] [address] [id number] [place] [address] Feb, [facility] [place] [facility] [address] [id number] [place] [address] Feb, [facility] [place] [facility] [address] [id number] [place] [address] Feb, [facility] [place] [facility] [address] [id number] [place] [address] Feb, [facility] [place] [facility] [address] [id number] [place] [address] Feb, [facility] [place] [facility] [address] [id number] [place] [address] Feb, [facility] [place] [facility] [address] [id number] [place] [address] Feb, [facility] [place] [facility] [address] [id number] [place] [address] Feb, [facility] [place] [facility] [address] [id number] [place] [address] Feb, [facility] [place] [facility] [address] [id number] [place] [address] Feb, [facility] [place] [facility] [address] [id number] [place] [address] January, [facility] [place] [facility] [address] [id number] [place] [address] January, [facility] [place] [facility] [address] [id number] [place] [address]163 January, [facility] [place] [facility] [address] [id number] [place] [address] 6[address] January, [facility] [place] [facility] [address] [id number] [place] [address]- [address] January, [facility] [place] [facility] [address] [id number] [place] [address] January, [facility] [place] [facility] [address] [id number] [place] [address] January, [facility] [place] [facility] [address] [id number] [place] [address] 67[address] January, [facility] [place] [facility] [address] [id number] [place] [address] January, [facility] [place] [facility] [address] [id number] [place] [address]- [address] January, [facility] [place] [facility] [address] [id number] [place] [address] January, [facility] [place] [facility] [address] [id number] [place] [address] January, [facility] [place] [facility] [address] [id number] [place] [address]600 January, [facility] [place] [facility] [address] [id number] [place] [address] January, [facility] [place] [facility] [address] [id number] [place] [address] Dec, [facility] [place] [facility] [address] [id number] [place] [address] 1422 Dec, [facility] [place] [facility] [address] [id number] [place] [address] Dec, [facility] [place] [facility] [address] [id number] [place] [address] Dec, [facility] [place] [facility] [address] [id number] [place] [address] Dec, [facility] [place] [facility] [address] [id number] [place] [address] 0449 Dec, [facility] [place] [facility] [address] [id number] [place] [address]076 Dec, [facility] [place] [facility] [address] [id number] [place] [address]296 Dec, [facility] [place] [facility] [address] [id number] [place] [address] 49[address] Dec, [facility] [place] [facility] [address] [id number] [place] [address]60 Dec, [facility] [place] [facility] [address] [id number] [place] [address]447 Nov, [facility] [place] [facility] [address] [id number] [place] [address] Nov, [facility] [place] [facility] [address] [id number] [place] [address]- [address] Nov, [facility] [place] [facility] [address] [id number] [place] [address]19 Nov, [facility] [place] [facility] [address] [id number] [place] [address] 8217 Nov, [facility] [place] [facility] [address] [id number] [place] [address]170 Nov, [facility] [place] [facility] [address] [id number] [place] [address]- 0980 Nov, [facility] [place] [facility] [address] [id number], [place] [address] Nov, [facility] [place] [facility] [address] [id number] [place] [address] 7964 Nov, [facility] [place] [facility] [address] [id number] [place] [address]27 Nov, [facility] [place] [facility] [address] [id number] [place] [address]- [address]180 Oct, [facility] [place] [facility] [address] [id number] [place] [address]- [address]347 Oct, [facility] [place] [facility] [address] [id number] [place] [address]- [address]121 Oct, [facility] [place] [facility] [address] [id number] [place] [address]- 3536 Oct, [facility] [place] [facility] [address] [id number] [place] [address] Oct, [facility] [place] [facility] [address] [id number] [place] [address]- 8305 Oct, [facility] [place] [facility] [address] [id number] [place] [address]388 Oct, [facility] [place] [facility] [address] [facility] [id number] [place] [address]- [address]99 Oct, [facility] [place] [facility] [address] [id number] [place] [address]- 7056 Oct, [facility] [place] [facility] [address] [id number] [place] [address]- [address]307 Oct, [facility] [place] [facility] [address] [facility] [id number] [place] [address] 04[address] Oct, [facility] [place] [facility] [address] [facility] [id number], [place] [address] Oct, [facility] [place] [facility] [address] [id number], [place] [address] Oct, [facility] [place] [facility] [address] [id number] [place] [address] 9213 Oct, [facility] [place] [facility] [address] [id number], [place] [address] Sep, [facility] [place] [facility] [address] [facility] [id number], [place] [address]- [address] Sep, [facility] [place] [facility] [address] [id number], [place] [address] 15 Sep, 2013 [facility] [address] [id number] [place] [address] 15 Sep, 2013 [facility] [place] [facility] [address] [id number] [place] [address] 14 Sep, 2013 [facility] [place] [facility] [address] [id number] [place] [address]- 2093 14 Sep, 2013 [facility] [place] [facility] [address] [id number] [place] [address]- 1592 14 Sep, 2013 [facility] [place] [facility] [address] [id number] [place] [address]- 8827 Sep, [facility] [place] [facility] [address] [id number] [place] [address]- 3837 08 Sep, 2013 [facility] [place] [facility] [address] [id number] [place] [address]- 5518 Sep, [facility] [place] [facility] [address] [id number] [place] [address] 2001 Aug, [facility] [place] [facility] [address] [id number] [place] [address]- 1197 Aug, [facility] [place] [facility] [address] [id number] [place] [address]- 6000 Jul, [facility] [place] [facility] [address] [id number] [place] [address]- 6238 Jul, [facility] [place] [facility] [address] [id number] [place] [address]- 7494 Jul, [facility] [place] [facility] [address] [id number] [place] [address]- 5035 Jul, [facility] [place] [facility] [address] [id number] [place] [address]- 3230 Jul, [facility] [place] [facility] [address] [id number] [place] [address]- 2906 Jul, [facility] [place] [facility] [address] [id number] [place] [address]- 9266 12 Jul, 2013 [facility] [place] [facility] [address] [id number] [place] [address]- 7060 Jul, [facility] [place] [facility] [address] [id number] [place] [address]- 2884 Jul, [facility] [place] [facility] [address] [id number] [place] [address]- 1466 08 Jul, 2013 [facility] [place] [facility] [address] [id number] [place] [address]- 7435 Jul, [facility] [place] [facility] [address] [id number] [place] [address]- 9037 Jul, [facility] [place] [facility] [address] [id number] [place] [address]- 0176 Jul, [facility] [place] [facility] [address] [id number] [place] [address]- 7324 Jul, [facility] [place] [facility] [address] [id number] [place] [address]- 0244 Jul, [facility] [place] [facility] [address] [id number] [place] [address]- 8425 Jul, [facility] [place] [facility] [address] [facility] [id number] [place] [address]- 8850 Jul, [facility] [place] [facility] [address] [id number] [place] [address]- 9160 Jul, [facility] [place] [facility] [address] [id number] [place] [address]- 1277 Jul, [facility] [place] [facility] [address] [id number] [place] [address]- 8434 Jun, [facility] [place] [facility] [address] [id number] [place] [address]- 8476 Jun, [facility] [place] [facility] [address] [id number] [place] [address]- 5337 Jun, 2012 [facility] [place] [facility] [address] [id number] [place] [address]- 7316 16 Jun, 2012 [facility] [place] [facility] [address] [id number] [place] [address]- 8980 16 Jun, 2012 [facility] [place] [facility] [address] [id number] [place] [address]- 3967 16 Jun, 2012 [facility] [place] [facility] [address] [id number] [place] [address]- 4276 10 Jun, 2012 [facility] [place] [facility] [address] [id number] [place] [address]- 8768 10 Jun, 2013 [facility] [place] [facility] [address] [id number] [place] [address]- 2066 09 Jun, 2013 [facility] [place] [facility] [address] [id number] [place] [address]- 3750 Jun, [facility] [place] [facility] [address] [id number], [place] [address]- 1636 Jun, [facility] [place] [facility] [address] [id number], [place] [address]- 9518 26 May, 2012 [facility] [place] [facility] [address] [id number], [place] [address]- 2130 25 Sep, 2012 [facility] [place] [facility] [address] [id number], [place] [address]- 7584 19 Sep, 2012 [facility] [place] [facility] [address] [id number], [place] [address]- 6964 17 Sep, 2012 [facility] [place] [facility] [address] [id number], [place] [address]- 5854 11 Sep, 2012 [facility] [place] [facility] [address] [id number], [place] [address]- 8934 10 May, 2012 [facility] [place] [facility] [address] [id number], [place] [address]- 3239 09 May, 2012 [facility] [place] [facility] [address] [id number] [place] [address]- 8294 May, [facility] [address] [id number] [place] [address]- 5201 Apr, [facility] [place] [facility] [address] [id number] [place] [address]- 7427 Apr, [facility] [place] [facility] [address] [id number] [place] [address]- 7993 Apr, [facility] [place] [facility] [address] [id number] [place] [address]- 3567 Apr, [facility] [place] [facility] [address] [id number] [place] [address]- 9648 Apr, [facility] [place] [facility] [address] [id number] [place] [address]- 4220 Mar, [facility] [place] [facility] [address] [id number] [place] [address]- 4243 Mar, [facility] [place] [facility] [address] [id number] [place] [address]- 7696 Mar, [facility] [place] [facility] [address] [id number] [place] [address]- 2241 Mar, [facility] [place] [facility] [address] [id number] [place] [address]- 5064 Mar, [facility] [place] [facility] [address] [id number] [place] [address]- 3448 Mar, [facility] [place] [facility] [address] [id number] [place] [address]- 4925 Mar, [facility] [place] [facility] [address] [id number] [place] [address]- 6368 Mar, [facility] [place] [facility] [address] [id number] [place] [address]- 3483 Feb, [facility] [place] [facility] [address] [id number] [place] [address]- 3996 Feb, [facility] [place] [facility] [address] [id number] [place] [address]- 3155 January, [facility] [address] [id number] [place] [address]- 6774 January, [facility] [place] [facility] [address] [id number] [place] [address]- 4236 Dec, [facility] [place] [facility] [address] [id number] [place] [address]- 0819 Dec, [facility] [address] [id number] [place] [address]- 8774 Nov, [facility] [place] [facility] [address] [id number] [place] [address]- 2515 Nov, [facility] [address] [id number] [place] [address]- 0423 Nov, [facility] [place] [facility] [address] [id number] [place] [address]- 6079 Nov, [facility] [address] [id number] [place] [address]- 0309 Oct, [facility] [place] [facility] [address] [id number] [place] [address]- 5770 Oct, [facility] [place] [facility] [address] [id number] [place] [address]- 1504 Oct, [facility] [place] [facility] [address] [id number] [place] [address]- 8383 Oct, [facility] [place] [facility] [address] [id number] [place] [address]- 7109 Oct, [facility] [place] [facility] [address] [id number] [place] [address]- 2352 14 Oct, 2012 [facility] [place] [facility] [address] [id number] [place] [address]- 3957 Oct, [facility] [place] [facility] [address] [id number] [place] [address]- 7811 07 Oct, 2012 [facility] [address] [id number] [place] [address]- 9634 03 Oct, 2012 [facility] [address] [id number] [place] [address]- 9250 30 Sep, 2012 [facility] [address] [id number] [place] [address]- 5463 Sep, [facility] [place] [facility] [address] [id number] [place] [address]- 5674 Sep, [facility] [address] [id number] [place] [address]- 1792 Sep, [facility] [address] [id number] [place] [address]- 4575 17 Sep, 2012 [facility] [address] [id number] [place] [address]- 9544 Sep, [facility] [address] [id number] [place] [address]- 1782 Sep, [facility] [address] [id number] [place] [address]- 7044 Sep, [facility] [address] [facility] [id number] [place] [address]- 2794 Aug, [facility] [address] [id number] [place] [address]- 8711 Aug, [facility] [place] [facility] [address] [id number] [place] [address]- 254 Aug, [facility] [place] [facility] [address] [id number] [place] [address]- 9606 Aug, [facility] [place] [facility] [address] [id number] [place] [address]- 1409 Aug, [facility] [address] [id number] [place] [address]- 7650 Aug, [facility] [place] [facility] [address] [id number] [place] [address]- 9266 Aug, [facility] [place] [facility] [address] [id number] [place] [address]- 7042 Aug, [facility] [place] [facility] [address] [id number] [place] [address]- 9094 Jul, [facility] [place] [facility] [address] [id number] [place] [address], [place] [address]- 6523 Jul, [facility] [place] [facility] [address] [id number] [place] [address]- 4972 Jul, [facility] [place] [facility] [address] [id number] [place] [address], [place] [address]- 7389 Jul, [facility] [place] [facility] [address] [id number] [place] [address]- 3132 Jul, [facility] [place] [facility] [address] [id number] [place] [address], [place] [address]- 3878 Jul, [facility] [place] [facility] [address] [id number] [place] [address]- 7768 Jun, [facility] [place] [facility] [address] [id number] [place] [address]- 1306 Jun, [facility] [place] [facility] [address] [id number] [place] [address]- 0161 Jun, [facility] [place] [facility] [address] [id number], [place] [address]- 3175 Jun, [facility] [place] [facility] [address] [id number] [place] [address]- 0422 Jun, [facility] [place] [facility] [address] [id number] [place] [address]- 1783 Jun, [facility] [place] [facility] [address] [id number] [place] [address]- 1962 Jun, [facility] [place] [facility] [address] [id number], [place] [address]- 8316 Jun, [facility] [place] [facility] [address] [id number] [place] [address]- 8914 Jun, [facility] [place] [facility] [address] [id number] [place] [address]- 1086 26 May, 2012 [facility] [place] [facility] [address] [id number] [place] [address]- 0626 24 May, 2012 [facility] [place] [facility] [address] [id number] [place] [address]- 0517 May, [facility] [place] [facility] [address] [id number] [place] [address]- 4821 Apr, [facility] [place] [facility] [address] [id number] [place] [address]- 8376 Apr, [facility] [place] [facility] [address] [id number] [place] [address]- 8937 Apr, [facility] [place] [facility] [address] [id number] [place] [address]- 9639 Apr, [facility] [place] [facility] [address] [id number] [place] [address]- 5241 Apr, [facility] [place] [facility] [address] [id number] [place] [address]- 4995 Apr, [facility] [place] [facility] [address] [id number] [place] [address]- 8823 Mar, [facility] [place] [facility] [address] [id number] [place] [address]- 9357 Mar, [facility] [place] [facility] [address] [id number] [place] [address]- 9015 Mar, [facility] [place] [facility] [address] [id number] [place] [address]- 3160 Mar, [facility] [place] [facility] [address] [id number] [place] [address]- 3620 Feb, [facility] [place] [facility] [address] [id number] [place] [address]- 4896 Feb, [facility] [address] [id number] [place] [address]- 7039 Feb, [facility] [address] [id number] [place] [address]- 8677 Feb, [facility] [address] [id number] [place] [address]- 1397 Feb, [facility] [address] [id number] [place] [address]- 8752 January, [facility] [address] [id number] [place] [address]- 4143 January, [facility] [address] [id number] [place] [address]- 7250 January, [facility] [address] [id number] [place] [address]- 9373 January, [facility] [address] [id number] [place] [address]- 7110 January, [facility] [address] [id number] [place] [address]- 6681 January, [facility] [address] [id number] [place] [address]- 9185 Dec, [facility] [address] [id number] [place] [address]- 7696 Dec, [facility] [address] [id number] [place] [address]- 4937 Dec, [facility] [place] [facility] [address] [id number] [place] [address]- 7969 Dec, [facility] [address] [id number] [place] [address]- 2466 Dec, [facility] [address] [id number] [place] [address]- 4327 Nov, [facility] [address] [id number] [place] [address]- 2949 14 Nov, 2011 [facility] [place] [facility] [address] [id number] [place] [address]- 9847 12 Nov, 2011 [facility] [place] [facility] [address] [id number] [place] [address]- 5523 07 Nov, 2011 [facility] [place] [facility] [address] [id number] [place] [address]- 8794 29 Oct, 2011 [facility] [place] [facility] [address] [id number] [place] [address]- 0769 28 Oct, 2011 [facility] [place] [facility] [address] [id number] [place] [address]- 6259 24 Oct, 2011 [facility] [place] [facility] [address] [id number] [place] [address]- 6285 13 Oct, 2011 [facility] [place] [facility] [address] [id number] [place] [address]- 9953 08 Oct, 2011 [facility] [place] [facility] [address] [id number] [place] [address]- 2542 Sep, [facility] [place] [facility] [address] [id number] [place] [address]- 0429 Sep, [facility] [place] [facility] [address] [id number] [place] [address]- 5751 Sep, [facility] [place] [facility] [address] [id number] [place] [address]- 2427 Sep, [facility] [place] [facility] [address] [id number] [place] [address]- 1254 Sep, [facility] [place] [facility] [address] [id number] [place] [address]- 4666 Sep, [facility] [place] [facility] [address] [id number] [place] [address]- 0186 Aug, [facility] [place] [facility] [address] [id number] [place] [address]- 3413 Aug, [facility] [place] [facility] [address] [id number] [place] 3366 Aug, [facility] [place] [facility] [address] [id number] [place] [address]- 4012 Jul, [facility] [place] [facility] [address] [id number] [place] [address]- 6864 Jul, [facility] [place] [facility] [address] [id number] [place] [address]- 0530 Jul, [facility] [place] [facility] [address] [id number] [place] 7418 Jul, [facility] [place] [facility] [address] [id number] [place] [address]- 6647 Jun, [facility] [place] [facility] [address] [id number] [place] [address]- 2805 Jun, [facility] [place] [facility] [address] [id number] [place] [address]- 9462 Jun, [facility] [place] [facility] [address] [id number] [place] [address]- 7380 Jun, [facility] [place] [facility] [address] [facility] [id number] [place] [address]- 8270 Jun, [facility] [place] [facility] [address] [id number] [place] [address]- 0929 Jun, [facility] [place] [facility] [address] [id number] [place] [address]- 7674 Mar, [facility] [place] [facility] [address] [id number] [place] 2288 Dec, [facility] [place] [facility] [address] [id number] [place] [address]- 0489 Dec, [facility] [place] [facility] [address] [id number] [place] 1568 Nov, [facility] [place] [facility] [address] [id number] [place] [address]- 7394 16 Nov, 2010 [facility] [address] [id number] [place] [address]- 8922 10 Sep, 2010 [facility] [address] [id number] [place] [address]- 2766 31 Aug, 2010 [facility] [address] [id number] [place] [address]- 9926 Aug, [facility] [address] [id number] [place] [address]- 4305 29 Aug, 2010 [facility] [address] [id number] [place] [address]- 8643 Aug, [facility] [address] [id number] [place] [address]- 1649 Aug, [facility] [address] [id number] [place] [address]- 6946 14 Aug, 2010 [facility] [address] [id number] [place] [address]- 1295 Aug, [facility] [address] [id number] [place] [address]- 6104 Aug, [facility] [address] [id number] [place] [address]- 9603 Aug, [facility] [address] [id number] [place] [address]- 9672 Aug, [facility] [address] [id number] [place] [address]- 8942 Aug, [facility] [place] [facility] [address] [id number] [place] [address]- 8866 Aug, [facility] [address] [id number] [place] [address]- 6576 30 Jul, 2010 [facility] [address] [id number], [place] [address]- 2725 Jul, [facility] [place] [facility] [address] [id number] [place] [address]- 1456 30 Jul, 2010 [facility] [place] [facility] [address] [id number] [place] [address]- 2596 Jul, [facility] [place] [facility] [address] [id number] [place] [address]- 8466 Jul, [facility] [place] [facility] [address] [id number] [place] [address] 2543 Jul, [facility] [place] [facility] [address] [id number] [place] [address]- 1482 24 Jun, 2010 [facility] [place] [facility] [address] [id number] [place] [address] Jun, [facility] [place] [facility] [address] [id number] [place] [address] Jun, [facility] [place] [facility] [address] [id number] [place] [address] Jun, [facility] [place] [facility] [address] [id number], [place] [address] 16 Apr, 2010 [facility] [place] [facility] [address] [id number] [place] [address] Mar, [facility] [place] [facility] [address] [id number], [place] [address] Feb, [facility] [place] [facility] [address] [id number], [place] [address] January, [facility] [place] [facility] [address] [id number] [place] [address] 15 Dec, 2009 [facility] [place] [facility] [address] [id number] [place] [address] Nov, [facility] [place] [facility] [address] [id number] [place] [address] 31 Aug, 2009 [facility] [place] [facility] [address] [id number] [place] [address] Aug, [facility] [address] [id number] [place] [address] Aug, [facility] [place] [facility] [address] [id number] [place] [address] Jul, [facility] [address] [id number] [place] [address] Jul, [facility] [place] [facility] [address] [id number] [place] [address] Jul, [facility] [address] [id number] [place] [address] Jun, [facility] [address] [facility] [id number] [place] [address] Jun, [facility] [address] [facility] [id number] [place] [address] Jun, [facility] [address] [id number], [place] [address] Jun, [facility] [address] [facility] [id number] [place] [address] Jun, [facility] [address] [facility] [id number], [place] [address] Jun, [facility] [place] [facility] [address] [facility] [id number], [place] [address] Apr, [facility] [address] [id number], [place] [address] Apr, [facility] [place] [facility] [address] [facility] [id number], [place] [address] Feb, [facility] [place] [facility] [address] [facility] [id number], [place] [address] January, [facility] [address] [id number], [place] [address] Dec, IMMUNIZATIONS No Known Immunizations SOCIAL HISTORY Never Assessed REASON FOR VISIT f/u, Depression. PLAN OF CARE Activity Details Follow Up 2 Weeks Reason:depression VITAL SIGNS MEDICATIONS Unknown Medications RESULTS No Results PROCEDURES Procedure Date Ordered Result Body Site [facility] VISIT MENTAL HEALTH ESTAB PT May 24, 2017 Psychotherapy, patient &/family, 45 minutes, established patient May 24, 2017 INSTRUCTIONS MEDICATIONS ADMINISTERED No Known [...] 2009 Surgical History colonoscopy 2009 ([place]), 2013 ([place]) Surgical History heart cath: CAD w/ PTCA [...]
--- OUTSIDE RECORDS SUMMARY | 2018-08-08 13:12 | XMS REPORT ---
Author Author NOEMI WASHBURN Organization [facility] Address [address] [place] [address] Care Team Providers Care Post Form Remover Name Role Phone NOEMI WASHBURN Unavailable PROBLEMS Type Condition ICD9-CM Code RUB02-TN Code Onset Dates Condition Status SNOMED Code Problem Chronic lymphocytic leukemia C91.10 Active 84641654 Problem Insomnia, unspecified type G47.00 Active 452687379 Problem Lymphocytosis D72.820 Active 59309857 Problem Anxiety F41.9 Active 71942924 Problem Eye exam abnormal R93.8 Active 438429676 Problem Morbid obesity E66.01 Active 481748900 Problem Diabetic polyneuropathy associated with type 2 diabetes mellitus E11.42 Active 29914652 Problem Essential hypertension I10 Active 59431548 Problem Falling R29.6 Active 207016610 Problem 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 Active 612401897 Problem Cough R05 Active 25732193 Problem Dysuria R30.0 Active 81345140 Problem Eustachian tube dysfunction, unspecified laterality H69.80 Active 45452631 Problem Bilateral primary osteoarthritis of knee M17.0 Active 183090846 Problem Polyneuropathy associated with underlying disease G63 Active 001156683 Problem Anemia of chronic illness D63.8 Active 402912954 Problem Retinal edema H35.81 Active 2054798 Problem DM neuro manif type II E11.49 Active 99796361 Problem Diabetes E11.9 Active 22872565 Problem Hypokalemia E87.6 Active 55956969 Problem Benign prostatic hyperplasia with lower urinary tract symptoms, unspecified morphology N40.1 Active 425762316 Problem Reactive airway disease J45.909 Active 943320238347 Problem Bipolar I disorder, most recent episode (or current) mixed, moderate F31.62 Active 71303021 Problem Chronic pain G89.29 Active 46743141 Problem Leukocytosis D72.829 Active 234326023 ALLERGIES No Information ENCOUNTERS Encounter Location Date Diagnosis [facility] [address] [address] Mar, [facility] [address] [address] Mar, [facility] [address] [address] Mar, [facility] [address] [address] Mar, [facility] [address] [address] Feb, [facility] [id number] [place] [address] 899301- 5117 Feb, Decubitus ulcer of right foot, stage 3 L89.893 and BMI 50.0- 59.9, adult Z68.43 [facility] [address], [place] [address] Feb, Bipolar I disorder, most recent episode (or current) mixed, moderate F31.62 [facility] [address], [place] [address] Feb, [facility] [address], [place] [address] January, [facility] [address] [address] 1989 January, Chronic pain G89.29 [facility] [address], [place] [address] January, Bipolar I disorder, most recent episode (or current) mixed, moderate F31.62 [facility] [address], [place] [address] 6[address] January, Bipolar I disorder, most recent episode (or current) mixed, moderate F31.62 [facility] [address], [place] [address] Dec, Bipolar I disorder, most recent episode (or current) mixed, moderate F31.62 and BMI 50.0-59.9, adult Z68.43 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 ; Encounter for medication monitoring Z51.81 and BMI 50.0-59.9, adult Z68.43 [place] [address] [address]- 368[address] Dec, Bipolar I disorder, most recent episode (or current) mixed, moderate F31.62 [place] [address] [place] [id number] [place] [address] 68518- 0001 Nov, Bipolar I disorder, most recent episode (or current) mixed, moderate F31.62 [place] [address] [place] [id number] [place] [address] 06200- 6326 Nov, Chronic pain G89.29 [place] [address] 81403- 0442 Nov, Bipolar I disorder, most recent episode (or current) mixed, moderate F31.62 [place] [address] [place] [id number] [place] [address] 52995- 5193 Nov, Hypokalemia E87.6 [place] [address] [place] [id number] [place] [address] 11262- 1677 Nov, Bipolar I disorder, most recent episode (or current) mixed, moderate F31.62 [place] [address] [place] [address]- 9250 Oct, Chronic pain G89.29 [place] [address] 76[address]- 0953 Oct, BMI 50.0-59.9, adult Z68.43 and Bipolar I disorder, most recent episode (or current) mixed, moderate F31.62 [place] [address] 8[address]64- 4771 Oct, Bipolar I disorder, most recent episode (or current) mixed, moderate F31.62 [place] [address] 31260- 6469 Oct, [place] [address] 8[address]60- 7973 Oct, Hypokalemia E87.6 [place] [address] 78541- 9008 Oct, DM neuro manif type II E11.49 [place] [address] [place] [id number] [place] [address] 18437- 9333 Oct, Bipolar I disorder, most recent episode (or current) mixed, moderate F31.62 [place] [address] [place] [id number] [place] [address] 36265- 6144 Oct, Bipolar I disorder, most recent episode (or current) mixed, moderate F31.62 [place] [address] [place] [id number] [place] [address] 13200- 9204 Oct, Hyperkalemia E87.5 ; Falling R29.6 ; BMI 50.0-59.9, adult Z68.43 and Acute left ankle pain M25.572 [place] [address] 06199- 8810 Oct, DM neuro manif type II E11.49 [place] [address] 36747- 3627 Oct, [place] [id number] [place] [address] 25283- 7909 Sep, Chronic pain G89.29 [place] [address] [place] [id number] [place] [address] 24367- 5129 Sep, [place] [address] [place] [id number] [place] [address] 97147- 3176 Sep, Bilateral primary osteoarthritis of knee M17.0 [place] [address] [place] [id number] [place] [address] 57091- 0735 Sep, Generalized edema R60.[address] [address]- [address] Sep, Bipolar I disorder, most recent episode (or current) mixed, moderate F31.62 [place] [id number] [place] [address] 65373- 5658 Sep, Hypoxia R09.02 ; Other hypervolemia E87.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 ; Anemia of chronic illness D63.8 and BMI 50.0- 59.9, adult Z68.43 [place] [id number] [place] [address] 74603- 1642 Sep, [place] [address] [place] [id number] [place] [address] 34235- 3908 Sep, Bipolar I disorder, most recent episode (or current) mixed, moderate F31.62 [place] [address] [place] [id number] [place] [address] 46528- 6289 Aug, Chronic pain G89.29 [place] [address] [place] [id number] [place] [address] 24610- 8741 Aug, Generalized edema R60.1 [place] [address] [place] [id number] [place] [address] 89081- 6821 Aug, [place] [id number] [place] [address] 06352- 2730 Aug, [place] [address] [place] [id number] [place] [address] 07237- 5384 Aug, Bipolar I disorder, most recent episode (or current) mixed, moderate F31.62 [place] [address] [place] [id number] [place] [address] 20147- 4730 Aug, Bipolar I disorder, most recent episode (or current) mixed, moderate F31.62 [place] [address] [place] [id number] [place] [address] 31993- 6848 Aug, Chronic pain G89.29 [place] [address] [place] [id number] [place] [address] 92818- 2338 Jul, Bipolar I disorder, most recent episode (or current) mixed, moderate F31.62 [place] [address] [place] [id number] [place] [address] 53600- 2680 Jul, Bipolar I disorder, most recent episode (or current) mixed, moderate F31.62 and BMI 60.0-69.9, adult Z68.44 [place] [address] [place] [id number] [place] [address] 82596- 1467 Jul, Bipolar I disorder, most recent episode (or current) mixed, moderate F31.62 [place] [address] [place] [id number] [place] [address] 94399- 3003 Jul, Chronic pain G89.29 [place] [address] [place] [id number] [place] [address] 94212- 1138 Jul, Bipolar I disorder, most recent episode (or current) mixed, moderate F31.62 [place] [address] [place] [id number] [place] [address] 21904- 3809 Jun, Polyneuropathy associated with underlying disease G63 and Diabetes E11.9 [place] [address] [place] [id number] [place] [address] 46073- 0149 Jun, Bipolar I disorder, most recent episode (or current) mixed, moderate F31.62 [facility] [id number] [place] [address] 12127- 7223 09 Jun, [address] [facility] [id number] [place] [address] 24610- 5647 27 May, 2017 Bipolar I disorder, most recent episode (or current) mixed, moderate F31.62 [facility] [address] [place] [id number] [place] [address] 12800- 8437 21 May, 2017 Bipolar I disorder, most recent episode (or current) mixed, moderate F31.62 [facility] [address] [place] [id number] [place] [address] 128578- 5061 20 May, 2017 Diabetic polyneuropathy associated with type [address] [facility] [address] [place] [id number] [place] [address] 77712- 6731 18 May, 2017 Bipolar I disorder, most recent episode (or current) mixed, moderate F31.62 [facility] [id number] [place] [address] 21206- 3706 13 May, 2017 Bipolar I disorder, most recent episode (or current) mixed, moderate F31.62 [facility] [id number] [place] [address] 68387- 1350 May, Chronic pain G89.29 [facility] [id number] [place] [address] 02445- 9205 Apr, Bipolar I disorder, most recent episode (or current) mixed, moderate F31.62 [facility] [id number] [place] [address] 66398- 1450 Apr, [facility] [address] [place] [id number] [place] [address] 45895- 3684 Apr, Chronic pain G89.29 and DM neuro manif type II E11.49 [facility] [address] [place] [id number] [place] [address] 78292- 5178 Apr, [facility] [address], [place] [address]- 9476 Apr, Bipolar I disorder, most recent episode (or current) mixed, moderate F31.62 [facility] [address], [place] [address]- 1816 Apr, Chronic pain G89.29 [facility] [address] [place] [id number] [place] [address] 95799- 9356 Apr, Iliotibial band syndrome, left M76.32 [facility] [id number] [place] [address] 44849- 5227 Apr, Bipolar I disorder, most recent episode (or current) mixed, moderate F31.62 [facility] [id number] [place] [address] 81133- 4004 Mar, Bipolar I disorder, most recent episode (or current) mixed, moderate F31.62 [facility] [id number] [place] [address] 39478- 5941 Mar, Bipolar I disorder, most recent episode (or current) mixed, moderate F31.62 [facility] [id number] [place] [address] 65868- 6144 Mar, [facility] [id number] [place] [address] 77830- 9147 Mar, Bipolar I disorder, most recent episode (or current) mixed, moderate F31.62 [facility] [address], [place] [address]- 6789 Mar, Chronic pain G89.29 [facility] [id number] [place] [address] 57037- 4920 Mar, Bipolar I disorder, most recent episode (or current) mixed, moderate F31.62 [facility] [address], [place] [address]- 0848 Mar, Bipolar I disorder, most recent episode (or current) mixed, moderate F31.62 [place] [id number] [place] [address] 91037- 1996 Mar, Acute pain of left knee M25.562 ; Left hip pain M25.552 ; Generalized edema R60.1 and Tongue swelling R22.0 [place] [address] [place] [id number] [place] [address] 79404- 5740 Mar, [place] [address] [place] [id number] [place] [address] 09650- 7171 Feb, Chronic pain G89.29 [place] [address] 23976- 6681 Feb, Diabetes E11.9 [place] [address] [place] [id number] [place] [address] 12069- 1468 January, Chronic pain G89.29 [place] [address] [place] [id number] [place] [address] 93630- 9539 January, [place] [address] [place] [id number] [place] [address] 20125- 5549 January, Bipolar I disorder, most recent episode (or current) mixed, moderate F31.62 [place] [address] [place] [id number] [place] [address] 99428- 0899 Dec, Bipolar I disorder, most recent episode (or current) mixed, moderate F31.62 [place] [address] [place] [id number] [place] [address] 22881- 6616 Dec, Chronic pain G89.29 [place] [address] [place] [id number] [place] [address] 30649- 3674 Dec, Bipolar I disorder, most recent episode (or current) mixed, moderate F31.62 [place] [address] [place] [id number] [place] [address] 63531- 5144 Dec, Diabetes E11.9 ; Essential hypertension I10 ; Chronic pain G89.29 and Morbid obesity E66.01 [place] [address] [place] [address]- 6896 Dec, [facility] [address], [place] [address]- 5926 Dec, Bipolar I disorder, most recent episode (or current) mixed, moderate F31.62 [facility] [address] 4816 Dec, Bipolar I disorder, most recent episode (or current) mixed, moderate F31.62 [facility] [address] [address]- 2566 Nov, Chronic pain G89.29 [facility] [address] [place] [id number] [place] [address] 95910- 9495 Nov, Bipolar I disorder, most recent episode (or current) mixed, moderate F31.62 [facility] [address], [place] [address]- 8536 Nov, [facility] [address] [place] [address] [address]- 3099 Nov, Bipolar I disorder, most recent episode (or current) mixed, moderate F31.62 [facility] [address], [place] [address]- 5079 Nov, Bipolar I disorder, most recent episode (or current) mixed, moderate F31.62 [facility] [address], [place] [address]- 1126 Nov, [facility] [address] [address] 25[address] Nov, [facility] [address], [place] [address]- 7346 Nov, [facility] [address], [place] [address]- 0086 Oct, Chronic pain G89.29 [facility] [address], [place] [address]- 2486 Oct, Bipolar I disorder, most recent episode (or current) mixed, moderate F31.62 [facility] [address] [place] [id number] [place] [address] 60116- 6796 Oct, 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 [address] [place] [id number] [place] [address] 49907- 7228 Oct, [facility] [address] [place] [id number] [place] [address] 82051- 0529 Oct, Diabetes E11.9 [facility] [address] [place] [id number] [place] [address] 82512- 1247 Oct, Bipolar I disorder, most recent episode (or current) mixed, moderate F31.62 [facility] [address] [place] [id number] [place] [address] 51250- 0623 Sep, Chronic pain G89.29 [facility] [address] [place] [id number] [place] [address] 91684- 1019 Sep, Chronic pain G89.29 [facility] [address] [place] [id number] [place] [address] 46892- 6356 Aug, Chronic pain G89.29 [facility] [address] [place] [id number] [place] [address] 25881- 5078 Jul, [facility] [address] [place] [id number] [place] [address] 21207- 4518 Jul, Diabetes E11.9 [facility] [address] [place] [id number] [place] [address] 56228- 2688 Jul, Chronic pain G89.29 [facility] [address] [place] [id number] [place] [address] 92754- 1669 Jul, Bipolar I disorder, most recent episode (or current) mixed, moderate F31.62 [facility] [address] [place] [id number] [place] [address] 13949- 8994 Jun, Bipolar I disorder, most recent episode (or current) mixed, moderate F31.62 [facility] [address] [place] [id number] [place] [address] 67307- 7056 Jun, [facility] [address] 87179- 6487 Jun, Bipolar I disorder, most recent episode (or current) mixed, moderate F31.62 [facility] [address] [place] [id number] [place] [address] 35907- 5959 30 May, 2016 Insomnia, unspecified type G47.00 [facility] [address] [place] [id number] [place] [address] 71281- 2862 May, Bipolar I disorder, most recent episode (or current) mixed, moderate F31.62 [facility] [address] [place] [id number] [place] [address] 47484- 0183 14 May, 2016 [facility] [address] 46327- 3080 08 May, 2016 Bipolar I disorder, most recent episode (or current) mixed, moderate F31.62 [facility] [address] [place] [id number] [place] [address] 50588- 6495 May, Diabetes E11.9 [address] Essential hypertension I10 [facility] [address] [place] [id number] [place] [address] 52583- 4435 Apr, Chronic pain G89.29 [facility] [address] 30301- 8622 Apr, Bipolar I disorder, most recent episode (or current) mixed, moderate F31.62 [facility] [address] [place] [id number] [place] [address] 08656- 4110 Apr, [facility] [address] 00000- 6732 Apr, [facility] [address] [place] [id number] [place] [address] 90883- 8859 Mar, Chronic pain G89.29 ; Headache, unspecified headache type R51 ; Neuropathy G62.9 ; Pain of right hip joint M25.551 and Essential hypertension I10 [place] [address] [place] [id number] [place] [address] 61637- 5246 Mar, Chronic pain G89.29 [place] [address] 63926- 6594 Mar, Bipolar I disorder, most recent episode (or current) mixed, moderate F31.62 [place] [address] [place] [id number] [place] [address] 54509- 6112 Feb, Bipolar I disorder, most recent episode (or current) mixed, moderate F31.62 and Insomnia, unspecified type G47.00 [place] [address] [place] [id number] [place] [address] 90536- 2003 Feb, Chronic pain G89.29 [place] [address] [place] [id number] [place] [address] 14267- 5939 Feb, Bipolar I disorder, most recent episode (or current) mixed, moderate F31.62 [place] [address] [place] [id number] [place] [address] 37041- 5974 January, Bipolar I disorder, most recent episode (or current) mixed, moderate F31.62 [place] [address] [place] [id number] [place] [address] 15705- 5750 January, Chronic pain G89.29 [place] [address] [place] [id number] [place] [address] 24456- 1466 January, Chronic pain G89.29 and Essential hypertension I10 [place] [address] [place] [id number] [place] [address] 40510- 5039 January, Bipolar I disorder, most recent episode (or current) mixed, moderate F31.62 [place] [address] [address]- 2044 Dec, [facility] [address] [place] [id number] [place] [address] 33701- 0583 Dec, [facility] [address] [place] [id number] [place] [address] 79301- 3993 Dec, [facility] [address] [id number] [place] [address] 63694- 4281 Dec, [facility] [address] [place] [id number] [place] [address] 48636- 9908 Nov, Reactive airway disease J45.909 [facility] [address] [place] [id number] [place] [address] 09746- 4258 Nov, [facility] [address] [place] [id number] [place] [address] [phone]- [phone] Nov, [facility] [id number] [place] [address] [phone]- [phone] Nov, [facility] [id number] [place] [address] [phone]- 8724 Nov, [facility] [id number] [place] [address] [phone]- [phone] Nov, Onychomycosis B35.1 ; Hammertoe M20.40 ; [employer] or callus L84 and DM neuro manif type II E11.49 [facility] [id number] [place] [address] [phone]- [phone] Nov, Chronic pain G89.29 ; Leukocytosis D72.[address] [facility] [id number] [place] [address] [phone]- [phone] Nov, [facility] [id number] [place] [address] [phone]- [phone] Oct, Bronchitis J40 [facility] [id number] [place] [address] [phone]- [phone] Oct, [facility] [id number] [place] [address] [phone]- [phone] Oct, [facility] [id number] [place] [address] [phone]- [phone] Oct, Mastoiditis, unspecified laterality H70.90 and Type 2 diabetes mellitus with complication E11.8 [place] [address] [id number] [place] [address] [phone]- 1231 Sep, [place] [address] [id number] [place] [address] 28731- 5498 Sep, Dysuria R30.0 ; Cough R05 ; Benign prostatic hyperplasia with lower urinary tract symptoms, unspecified morphology N40.1 ; Hypokalemia E87.6 and Eustachian tube dysfunction, unspecified laterality H69.80 [place] [address] [id number] [place] [address] [phone]- 0518 Sep, Moderate mixed bipolar I disorder F31.62 [place] [address] [place] [id number] [place] [address] [phone]- [phone] Sep, Hypokalemia E87.6 [place] [address] [place] [id number] [place] [address] 58412- [phone] Sep, [place] [address] [place] [id number] [place] [address] [phone]- [phone] Sep, Upper respiratory tract infection, unspecified type J06.9 [place] [address] [place] [id number] [place] [address] [phone]- [phone] Aug, [place] [address] [place] [id number] [place] [address] 87068- 3809 Aug, D[address]30.0 [facility] [id number] [place] [address] 13446- 0919 Aug, [facility] [id number] [place] [address] 67006- 4265 Jul, [facility] [address], [place] [address] 7[address] Jul, [facility] [address] [address] 4021 Jul, [facility] [address]65[address] [address] 2376 Jul, [facility] [id number] [place] [address] 55835- 2043 Jun, [facility] [address]65[address] [address] 4299 Jun, [facility] [address]65[address] [address] 5203 Jun, [facility] [id number] [place] [address] 00254- 8219 May, [facility] [id number] [place] [address] 33870- 2841 May, Bipolar I disorder, most recent episode (or current) mixed, moderate 296.62 [facility] [address], [place] [address] 3028 16 May, 2015 [facility] [address], [place] [address]- 2320 May, Bipolar I disorder, most recent episode (or current) mixed, moderate 296.62 and Major depressive disorder, recurrent episode, severe, specified as with psychotic behavior 296.34 [facility] [address], [place] [address]- 5472 May, Bipolar I disorder, most recent episode (or current) mixed, moderate 296.62 [facility] [address] 7119 May, [facility] [address] [address] 3572 Apr, [facility] [id number] [address] Apr, [facility] [id number] [place] [address] 18204- 1928 Apr, Unspecified disorder of kidney and ureter 593.9 and Diabetes mellitus type [address], [address] [facility] [id number] [place] [address] 31439- 6031 Apr, [facility] [id number] [place] [address] 67254- 6628 Apr, [facility] [id number] [place] [address] 34524- 6191 Apr, [facility] [id number] [place] [address] 95957- 4066 Apr, [facility] [id number] [place] [address] 65329- 6961 Apr, Diabetes mellitus type II, uncontrolled 250.02 [facility] [id number] [place] [address] 44912- 3702 Apr, [facility] [id number] [place] [address] 07784- 7159 Mar, [facility] [id number] [place] [address] 40801- 0003 Mar, [facility] [id number] [place] [address] 65853- 8166 Mar, [facility] [id number] [place] [address] 92107- 7525 Mar, Major depressive disorder, recurrent episode, severe, specified as with psychotic behavior 296.34 and Bipolar I disorder, most recent episode (or current) mixed, moderate 296.62 [facility] [id number] [place] [address] 24593- 5175 Mar, Diabetes 250.00 ; Anuria 788.5 ; Nausea and vomiting 787.[address] [facility] [address], [place] [address]- 8829 Mar, Diabetes 250.00 [facility] [id number] [place] [address] 01640- 2843 Mar, [facility] [id number] [place] [address] 32005- 5131 Mar, Diabetes 250.00 [facility] [id number] [place] [address] 15242- 7933 Mar, [facility] [id number] [place] [address] 79658- 0881 Mar, [facility] [id number] [place] [address] 56161- 0711 Mar, [facility] [id number] [place] [address] 33886- 3172 Mar, [facility] [id number] [place] [address] 71329- 9283 Mar, Bipolar I disorder, most recent episode (or current) mixed, moderate 296.62 and Major depressive disorder, recurrent episode, severe, specified as with psychotic behavior 296.34 [id number] [place] [address] 10812- 4039 Mar, Magnesium deficiency 275.2 ; Hypokalemia 276.8 ; Nausea & vomiting 787.01 and Diabetes mellitus type [address], [address] [facility] [id number] [place] [address] 27885- 3373 Feb, [facility] [id number] [place] [address] 42555- 5407 Feb, Bipolar I disorder, most recent episode (or current) mixed, moderate 296.62 [facility] [id number] [place] [address] 55180- 7331 Feb, Nausea and vomiting 787.01 ; Left elbow pain 719.42 ; Anuria 788.[address] [facility] [address], [place] [address]- 2615 Feb, [facility] [id number] [place] [address] 75050- 8440 Feb, Hypopotassemia 276.[address] [facility] [address], [place] [address]- 2561 Feb, Hypopotassemia 276.[address] [facility] [address], [place] [address]- 8668 Feb, Seborrheic keratoses 702.19 [facility] [id number] [place] [address] 20133- 6916 Feb, Hypopotassemia 276.8 and Low magnesium levels 275.2 [facility] [id number] [place] [address] 18267- 8246 January, [facility] [address], [place] [address]- 0152 January, [facility] [id number] [place] [address] 74873- 2221 January, [facility] [address], [place] [address]- 3145 January, Scalp lesion 709.9 [facility] [id number] [place] [address] 61670- 4272 January, [facility] [address], [place] [address]- 4547 Dec, Tear of medial cartilage or meniscus of knee, current 836.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 [facility] [address], [place] [address]- 7422 Dec, [facility] [address] [address]- 3386 Dec, 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 [facility] [place] [facility] [address] [id number] [place] [address]- 5026 14 Dec, 2014 [facility] [place] [facility] [address] [id number] [place] [address]- 6946 13 Dec, 2014 [facility] [place] [facility] [address] [id number] [place] [address]- 0025 27 Nov, 2014 [facility] [place] [facility] [address] [id number] [place] 0658 Nov, [facility] [place] [facility] [address] [id number] [place] [address]- 7870 Nov, [facility] [place] [facility] [address] [facility] [id number] [place] [address]- 7503 Nov, [facility] [place] [facility] [address] [id number] [place] [address]- 3620 Nov, [facility] [place] [facility] [address] [facility] [id number] [place] [address]- 3336 Nov, [facility] [place] [facility] [address] [facility] [id number] [place] [address]- 0793 Nov, [facility] [place] [facility] [address] [facility] [id number] [place] [address]- 9232 Nov, [facility] [place] [facility] [address] [id number] [address]- 8218 Nov, [facility] [place] [facility] [address] [id number] [place] 5637 Nov, [facility] [place] [facility] [address] [id number] [place] [address]- 2993 Nov, [facility] [place] [facility] [address] [facility] [id number], [place] [address]- 1871 Nov, [facility] [place] [facility] [address] [facility] [id number], [place] [address]- 2157 Oct, 2014 [facility] [place] [facility] [address] [id number] [place] [address]- 8451 Oct, 2014 [facility] [place] [facility] [address] [id number] [place] [address]- 7816 Oct, 2014 [facility] [place] [facility] [address] [facility] [id number] [place] [address]- 7427 Oct, 2014 [facility] [place] [facility] [address] [facility] [id number] [place] [address]- 5551 Oct, 2014 [facility] [place] [facility] [address] [id number] [place] [address]- 6661 Oct, 2014 [facility] [place] [facility] [address] [facility] [id number] [place] [address]- 9089 Oct, 2014 [facility] [place] [facility] [address] [facility] [id number] [place] [address]- 8057 Oct, 2014 [facility] [place] [facility] [address] [facility] [id number] [place] [address]- 2934 Oct, [facility] [place] [facility] [id number] [place] [address]- 6204 Sep, [facility] [place] [facility] [address] [facility] [id number] [place] [address]- 7588 Sep, [facility] [place] [facility] [address] [facility] [id number] [place] [address]- 1542 Sep, [facility] [place] [facility] [address] [facility] [id number], [place] [address]- 0761 Sep, [facility] [place] [facility] [address] [facility] [id number] [place] [address]- 8655 Sep, [facility] [place] [facility] [address] [facility] [id number] [place] [address]- 9030 Sep, [facility] [place] [facility] [address] [facility] [id number] [address]- 1065 Sep, [facility] [place] [facility] [address] [id number] [place] [address]- 7995 Sep, [facility] [place] [facility] [address] [id number] [place] [address]- 8139 Sep, [facility] [place] [facility] [address] [id number] [place] [address]- 7585 Sep, [facility] [place] [facility] [address] [id number] [place] [address]- 0612 Sep, [facility] [place] [facility] [address] [id number] [place] [address]- 4380 Sep, [facility] [place] [facility] [address] [id number] [place] [address]- 5582 Sep, [facility] [place] [facility] [address] [id number] [place] [address]- 8580 Sep, [facility] [place] [facility] [address] [id number] [place] [address]- 4887 Sep, [facility] [place] [facility] [address] [id number] [place] [address]- 9475 Sep, [facility] [place] [facility] [address] [id number] [place] [address]- 9777 Aug, [facility] [place] [facility] [address] [id number] [place] [address]- 1563 Aug, [facility] [place] [facility] [address] [id number], [place] [address]- 1240 Aug, [facility] [place] [facility] [address] [id number] [place] [address]- 0474 Aug, [facility] [place] [facility] [address] [id number] [place] [address]- 1124 Aug, [facility] [place] [facility] [address] [id number] [place] [address]- 5459 Aug, [facility] [place] [facility] [address] [id number] [place] [address]- 1130 Aug, [facility] [address] [id number] [place] [address]- 3114 Aug, [facility] [address] [id number] [place] [address]- 8196 Aug, [facility] [address] [id number] [place] [address]- 5853 Aug, [facility] [address] [id number] [place] [address]- 5109 Aug, [facility] [address] [place] [id number] Aug, [facility] [address] [id number] [place] [address]- 5476 Aug, [facility] [address] [id number] [place] [address]- 8563 Aug, [facility] [address] [id number] [place] [address]- [address] Aug, [facility] [address] [id number] [place] [address]- 9367 Aug, [facility] [address] [id number] [place] [address]- 1068 Aug, [facility] [address] [id number] [place] [address]- 3013 Aug, [facility] [place] [facility] [address] [id number] [place] [address]- 5406 Aug, [facility] [place] [facility] [address] [id number] [place] [address]- 2260 Aug, [facility] [address] [id number] [place] [address]- 9711 Aug, [facility] [address] [id number] [place] [address]- 4618 Aug, [facility] [address] [id number] [place] [address]- 0836 03 Aug, 2014 [facility] [place] [facility] [address] [id number] [place] [address]- 4824 Aug, [facility] [place] [facility] [address] [id number] [place] 0957 Aug, [facility] [place] [facility] [address] [id number] [place] 0412 Aug, [facility] [place] [facility] [address] [id number] [place] [address]- 2566 Aug, [facility] [place] [facility] [address] [id number] [place] [address]- 8533 Aug, [facility] [place] [facility] [address] [id number] [place] [address]- 9690 Aug, [facility] [place] [facility] [address] [id number] [place] [address]- 7115 Aug, [facility] [place] [facility] [address] [id number] [place] [address]- 2731 Jul, [facility] [place] [facility] [address] [id number] [place] [address]- 2562 Jul, [facility] [place] [facility] [address] [facility] [id number] [place] [address]- 8408 Jul, [facility] [place] [facility] [address] [id number] [place] [address]- 7354 Jul, [facility] [place] [facility] [address] [id number] [place] [address]- 6903 Jul, [facility] [place] [facility] [address] [id number] [place] [address]- 4649 Jul, [facility] [place] [facility] [address] [id number] [place] [address]- 9737 Jul, [facility] [place] [facility] [address] [id number] [place] [address]- 7877 Jul, [facility] [place] [facility] [address] [id number] [place] [address]- 8142 Jul, [facility] [place] [facility] [address] [id number] [place] [address]- 8028 Jul, [facility] [place] [facility] [address] [id number] [place] [address]- 3523 Jun, [facility] [place] [facility] [address] [id number] [place] [address]- 8390 Jun, [facility] [place] [facility] [address] [id number] [place] [address]- 0394 Jun, [facility] [place] [facility] [address] [id number] [place] [address]- 8733 Jun, [facility] [place] [facility] [address] [id number] [place] [address]- 5242 Jun, [facility] [place] [facility] [address] [id number] [place] [address]- 5882 Jun, [facility] [place] [facility] [address] [id number] [place] [address]- 6911 Jun, [facility] [place] [facility] [address] [id number] [place] [address]- 8962 Jun, [facility] [place] [facility] [address] [id number] [place] [address]- 4547 Jun, [facility] [place] [facility] [address] [id number] [place] [address]- 4940 Jun, [facility] [place] [facility] [address] [id number] [place] [address]- 8871 May, [facility] [place] [facility] [address] [id number] [place] [address]- 6549 29 May, 2014 [facility] [place] [facility] [address] [id number] [place] [address]- 3788 May, [facility] [place] [facility] [address] [id number] [place] [address]- 2173 26 May, 2013 [facility] [place] [facility] [address] [id number] [place] [address] 2546 17 May, 2013 [facility] [place] [facility] [address] [id number] [place] [address] 2546 17 May, 2013 [facility] [place] [facility] [address] [id number] [place] [address] 2546 15 May, 2013 [facility] [place] [facility] [address] [id number] [place] [address] 2546 15 May, 2013 [facility] [place] [facility] [address] [id number] [place] [address] 2544 15 May, 2013 [facility] [place] [facility] [address] [id number] [place] [address]- 0911 15 May, 2013 [facility] [place] [facility] [address] [id number] [place] [address]- 9370 10 May, 2013 [facility] [place] [facility] [address] [id number] [place] [address]- 9373 10 May, 2013 [facility] [place] [facility] [address] [id number] [place] [address] 2547 09 May, 2013 [facility] [place] [facility] [address] [id number] [place] [address]- 2544 09 May, 2013 [facility] [place] [facility] [address] [id number] [place] [address] 2542 04 May, 2013 [facility] [place] [facility] [address] [id number] [place] [address]- 2549 May, 2013 [facility] [place] [facility] [address] [id number] [place] [address]- 2543 Apr, [facility] [place] [facility] [address] [id number] [place] [address]- 8041 Apr, [facility] [place] [facility] [address] [id number] [place] [address]- 2669 Apr, [facility] [place] [facility] [address] [id number] [place] [address]- 2538 Apr, [facility] [place] [facility] [address] [id number] [facility] [address]- 8811 Apr, [facility] [place] [facility] [address] [id number] [place] [address]- 0307 Apr, [facility] [place] [facility] [address] [id number] [place] [address]- 9028 Apr, [facility] [place] [facility] [address] [id number] [place] [address]- 7223 Apr, [facility] [place] [facility] [address] [id number] [place] [address]- 9601 Apr, [facility] [place] [facility] [address] [id number] [place] [address]- 3117 Apr, [facility] [place] [facility] [address] [id number] [place] [address]- 2617 Apr, [facility] [place] [facility] [address] [id number] [place] [address]- 2984 Apr, [facility] [place] [facility] [address] [id number] [place] [address]- 3288 Apr, [facility] [place] [facility] [address] [id number] [place] [address]- 4536 Apr, [facility] [place] [facility] [address] [id number] [place] [address]- 5148 Apr, [facility] [place] [facility] [address] [id number] [place] [address]- 3236 Mar, [facility] [place] [facility] [address] [id number] [place] [address] Mar, [facility] [place] [facility] [address] [id number] [place] [address] Mar, [facility] [place] [facility] [address] [id number] [place] [address] Mar, [facility] [place] [facility] [address] [id number] [place] [address] Mar, 2013 [facility] [place] [facility] [address] [id number] [place] [address]671 Mar, 2013 [facility] [place] [facility] [address] [id number] [place] [address]- [address]486 Mar, 2013 [facility] [place] [facility] [address] [id number] [place] [address]- 1601 Mar, 2013 [facility] [place] [facility] [address] [id number] [place] [address]100 Mar, 2013 [facility] [place] [facility] [address] [id number] [place] [address]- [address] Mar, 2013 [facility] [place] [facility] [address] [id number] [place] [address]- [address]142 Mar, 2013 [facility] [place] [facility] [address] [id number] [place] [address]- 9132 Mar, 2013 [facility] [place] [facility] [address] [id number] [place] [address]- 3748 Mar, 2013 [facility] [place] [facility] [address] [id number] [place] [address]- 6399 Mar, 2013 [facility] [place] [facility] [address] [id number] [place] [address]- 3175 Mar, 2013 [facility] [place] [facility] [address] [id number] [place] [address]- 3521 Mar, 2013 [facility] [place] [facility] [address] [id number] [place] [address]- 7929 Mar, 2013 [facility] [place] [facility] [address] [id number] [place] [address]- 8119 Mar, [facility] [place] [facility] [address] [id number] [place] [address]- 4136 Feb, [facility] [place] [facility] [address] [id number] [address] Feb, [facility] [place] [facility] [address] [id number] [place] [address]461 Feb, [facility] [place] [facility] [address] [id number] [place] [address]- 6225 Feb, [facility] [place] [facility] [address] [id number] [place] [address]- [address]226 Feb, [facility] [place] [facility] [address] [id number] [place] [address]- 7249 Feb, [facility] [place] [facility] [address] [id number] [place] [address]- 1580 Feb, [facility] [place] [facility] [address] [id number] [place] [address]- 6009 Feb, [facility] [place] [facility] [address] [id number] [place] [address]- 7143 Feb, [facility] [place] [facility] [address] [id number] [place] [address] 1305 Feb, [facility] [place] [facility] [address] [id number] [place] [address] 2949 Feb, [facility] [place] [facility] [address] [id number] [place] [address]- 4626 Feb, [facility] [place] [facility] [address] [id number] [place] [address]- 2260 Feb, [facility] [place] [facility] [address] [id number] [place] [address]- 4377 Feb, [facility] [place] [facility] [address] [id number] [place] [address]- 7223 January, [facility] [place] [facility] [address] [id number] [place] [address]- 475[address] January, [facility] [place] [facility] [address] [id number] [place] [address]- 6843 January, [facility] [place] [facility] [address] [id number] [place] [address]- [address]115 January, [facility] [place] [facility] [address] [id number] [place] [address]- 7304 January, [facility] [place] [facility] [address] [id number] [place] [address]- 6919 January, [facility] [place] [facility] [address] [id number] [place] [address]- 8722 January, [facility] [place] [facility] [address] [id number] [place] [address]- 3439 January, [facility] [place] [facility] [address] [id number] [place] [address]- 5358 January, [facility] [place] [facility] [address] [id number] [place] [address]- [address]554 January, [facility] [place] [facility] [address] [id number] [place] [address]- 2623 January, [facility] [place] [facility] [address] [id number] [place] [address]- 3187 January, [facility] [place] [facility] [address] [id number] [place] [address]- 9649 January, [facility] [place] [facility] [address] [id number] [place] [address]- 1415 January, [facility] [place] [facility] [address] [id number] [place] [address]- 8036 Dec, [facility] [place] [facility] [address] [id number] [place] [address]- 2077 Dec, [facility] [place] [facility] [address] [id number] [place] [address]- 5914 Dec, [facility] [place] [facility] [address] [id number] [place] [address]- 8442 Dec, [facility] [place] [facility] [address] [id number] [place] [address]- 4452 Dec, [facility] [place] [facility] [address] [id number] [place] [address]- 1869 Dec, [facility] [place] [facility] [address] [id number] [place] [address]- 7040 Dec, [facility] [place] [facility] [address] [id number] [place] [address]- 1773 Dec, [facility] [place] [facility] [address] [id number] [place] [address]- 4430 Dec, [facility] [place] [facility] [address] [id number] [place] [address]- 1476 Dec, [facility] [place] [facility] [address] [id number] [place] [address]- 4695 Nov, [facility] [place] [facility] [address] [id number] [place] [address]- 2559 Nov, [facility] [place] [facility] [address] [id number] [place] [address]- 7690 Nov, [facility] [place] [facility] [address] [id number] [place] [address]- 6230 Nov, [facility] [place] [facility] [address] [id number] [place] [address]- 6126 Nov, [facility] [place] [facility] [address] [id number] [place] [address]- 1449 Nov, [facility] [place] [facility] [address] [id number] [place] [address]- 3371 Nov, [facility] [place] [facility] [address] [id number] [place] [address]- 0950 Nov, [facility] [place] [facility] [address] [address] [id number] [place] [address] Nov, [facility] [place] [facility] [address] [id number] [place] [address] Nov, [facility] [place] [facility] [address] [id number] [place] [address] Oct, [facility] [place] [facility] [address] [id number] [place] [address] 8109 Oct, [facility] [place] [facility] [address] [id number] [place] [address] 2546 Oct, [facility] [place] [facility] [address] [id number] [place] [address]- 9315 Oct, [facility] [place] [facility] [address] [id number] [place] [address]- 4809 Oct, [facility] [place] [facility] [address] [id number] [place] [address] 2942 Oct, [facility] [place] [facility] [address] [facility] [id number] [place] [address]- 7330 Oct, [facility] [place] [facility] [address] [facility] [id number] [place] [address]- 1777 Oct, [facility] [place] [facility] [address] [facility] [id number] [place] [address]- 1809 Oct, [facility] [place] [facility] [address] [facility] [id number] [place] [address]- 2632 Oct, [facility] [place] [facility] [address] [facility] [id number] [place] [address]- 4469 Oct, [facility] [place] [facility] [address] [facility] [id number][place] [address] 1679 Oct, [facility] [place] [facility] [address] [facility] [id number] [place] [address]- 6647 Oct, [facility] [place] [facility] [address] [facility] [id number] [place] [address]- 6548 Oct, [facility] [place] [facility] [address] [facility] [id number] [place] [address]- 9818 Sep, [facility] [place] [facility] [address] [facility] [id number], [place] [address]- [address]600 Sep, [facility] [address] [id number] [place] [address]- 7386 15 Sep, 2013 [facility] [place] [facility] [address] [id number] [place] [address]- 8084 15 Sep, 2013 [facility] [place] [facility] [address] [id number] [place] [address]- 7481 Sep, [facility] [place] [facility] [address] [id number] [place] [address]- 0115 Sep, [facility] [place] [facility] [address] [id number] [place] [address]- 5122 Sep, [facility] [place] [facility] [address] [id number] [place] [address]- 7486 Sep, [facility] [place] [facility] [address] [id number] [place] [address]- 8766 Sep, [facility] [place] [facility] [address] [id number] [place] [address]- 4979 Sep, [facility] [place] [facility] [address] [id number] [place] [address]- 2372 Aug, [facility] [place] [facility] [address] [id number] [place] [address]- 1794 Aug, [facility] [place] [facility] [address] [id number] [place] [address]- 7661 Jul, [facility] [place] [facility] [address] [id number] [place] [address]- 5068 Jul, [facility] [place] [facility] [address] [id number] [place] [address]- 9056 Jul, [facility] [place] [facility] [address] [id number] [place] [address] 1901 Jul, [facility] [place] [facility] [address] [id number] [place] [address]- 9282 Jul, [facility] [place] [facility] [address] [id number] [place] [address]- 8026 13 Jul, 2013 [facility] [place] [facility] [address] [id number] [place] [address]- 2219 Jul, [facility] [place] [facility] [address] [id number] [place] [address]- 1334 Jul, [facility] [place] [facility] [address] [id number] [place] [address]- 9444 Jul, [facility] [place] [facility] [address] [id number] [place] [address]- 9782 Jul, [facility] [place] [facility] [address] [id number] [place] [address]- 0648 Jul, [facility] [place] [facility] [address] [id number] [place] [address]- 9469 Jul, [facility] [place] [facility] [address] [id number] [place] [address]- 9648 Jul, [facility] [place] [facility] [address] [id number] [place] [address]- 5486 Jul, [facility] [place] [facility] [address] [id number] [place] [address]- 4369 Jul, [facility] [place] [facility] [address] [id number] [place] [address]- 0110 Jul, [facility] [place] [facility] [address] [id number] [place] [address]- 0117 Jul, [facility] [place] [facility] [address] [id number] [place] [address]- 2720 Jul, [facility] [place] [facility] [address] [id number] [place] [address]- 5021 Jul, [facility] [place] [facility] [address] [id number] [place] [address]- 0669 Jun, [facility] [place] [facility] [address] [id number] [place] [address]- 0543 Jun, [facility] [place] [facility] [address] [id number] [place] [address]- 9144 16 Jun, 2012 [facility] [place] [facility] [address] [id number] [place] [address]- 9773 16 Jun, 2012 [facility] [place] [facility] [address] [id number] [place] [address]- 3122 16 Jun, 2012 [facility] [place] [facility] [address] [id number] [place] [address]- 9971 16 Jun, 2012 [facility] [place] [facility] [address] [id number] [place] [address]- 6368 10 Jun, 2012 [facility] [place] [facility] [address] [id number] [place] [address]- 0848 10 Jun, 2013 [facility] [place] [facility] [address] [id number] [place] [address]- 4443 Jun, [facility] [place] [facility] [address] [id number], [place] [address]- 7236 09 Jun, 2013 [facility] [place] [facility] [address] [id number] [place] [address]- 8381 Jun, [facility] [place] [facility] [address] [id number], [place] [address]- 8085 26 Sep, 2012 [facility] [place] [facility] [address] [id number], [place] [address]- 3636 25 Sep, 2012 [facility] [place] [facility] [address] [id number], [place] [address]- 5527 19 Sep, 2012 [facility] [place] [facility] [address] [id number] [place] [address]- 8447 17 Sep, 2012 [facility] [place] [facility] [address] [id number], [place] [address]- 2092 11 Sep, 2012 [facility] [place] [facility] [address] [id number], [place] [address]- 3634 10 Sep, 2012 [facility] [place] [facility] [address] [id number] [place] [address]- 5046 May, [facility] [place] [facility] [address] [id number] [place] [address]- 9876 May, [facility] [place] [facility] [address] [id number] [place] [address]- 8806 Apr, [facility] [place] [facility] [address] [id number] [place] [address]- 0159 Apr, [facility] [place] [facility] [address] [id number] [place] [address]- 4352 Apr, [facility] [place] [facility] [address] [id number] [place] [address]- 8582 Apr, [facility] [place] [facility] [address] [id number] [place] [address]- 7047 Apr, [facility] [place] [facility] [address] [id number] [place] [address]- 3130 Mar, [facility] [place] [facility] [address] [id number] [place] [address]- 8050 Mar, [facility] [place] [facility] [address] [id number] [place] [address]- 2974 Mar, [facility] [place] [facility] [address] [id number] [place] [address]- 7144 Mar, [facility] [place] [facility] [address] [id number] [place] [address]- 1351 Mar, [facility] [place] [facility] [address] [id number] [place] [address]- 0141 Mar, [facility] [place] [facility] [address] [id number] [place] [address]- 3646 Mar, [facility] [place] [facility] [address] [id number] [place] [address]- 0186 Mar, [facility] [place] [facility] [address] [id number] [place] [address]- 2607 Feb, [facility] [place] [facility] [address] [id number] [place] [address]- 5567 Feb, [facility] [place] [facility] [address] [id number] [place] [address]- 5101 January, [facility] [place] [facility] [address] [id number] [place] [address]- 2390 January, [facility] [place] [facility] [address] [id number] [place] [address]- 4476 Dec, [facility] [place] [facility] [address] [id number] [place] [address]- 8404 Dec, [facility] [place] [facility] [address] [id number] [place] [address]- 8329 Nov, [facility] [address] [facility] [id number] [place] [address]- 4660 Nov, [facility] [place] [facility] [address] [id number] [place] [address]- 9799 Nov, [facility] [place] [facility] [address] [id number] [place] [address]- 6335 Nov, [facility] [place] [facility] [address] [id number] [place] [address]- 6374 Oct, [facility] [place] [facility] [address] [facility] [id number] [place] [address]- 0740 Oct, [facility] [place] [facility] [address] [id number], [place] [address]- 8166 Oct, [facility] [place] [facility] [address] [id number] [place] [address]- 9475 Oct, [facility] [place] [facility] [address] [id number] [place] [address]- 5089 16 Oct, 2012 [facility] [place] [facility] [address] [id number] [place] [address]- 3941 14 Oct, 2012 [facility] [place] [facility] [address] [id number], [place] [address]- 5888 08 Oct, [address] [facility] [address] [id number] [place] [address]- 6017 07 Oct, 2012 [facility] [address] [id number] [place] [address]- 0746 03 Oct, 2012 [facility] [address] [id number] [place] [address]- 0608 30 Sep, 2012 [facility] [address] [id number] [place] [address]- 8464 29 Sep, 2012 [facility] [address] [id number] [place] [address]- 7562 Sep, [facility] [address] [id number] [place] [address]- 3270 Sep, [facility] [address] [id number] [place] [address]- 3326 17 Sep, [address] [facility] [address] [id number] [place] [address]- 3692 Sep, [facility] [address] [id number] [place] [address]- 0082 Sep, [facility] [address] [id number] [place] [address]- 3073 08 Sep, [address] [facility] [address] [id number] [place] [address]- 0960 Aug, [facility] [address] [id number] [place] [address]- 1189 Aug, [facility] [address] [id number] [place] [address]- 1714 Aug, [facility] [address] [id number] [place] [address]- 1704 Aug, [facility] [address] [id number] [place] [address]- 2987 Aug, [facility] [place] [facility] [address] [id number] [place] [address]- 8964 Aug, [facility] [place] [facility] [address] [id number] [place] [address]- 4929 Aug, [facility] [place] [facility] [address] [id number] [place] [address]- 7627 Aug, [facility] [place] [facility] [address] [id number] [place] [address], [place] [address]- 6752 Jul, [facility] [place] [facility] [address] [id number] [place] [address]- 1235 Jul, [facility] [place] [facility] [address] [id number] [place] [address]- 0898 Jul, [facility] [place] [facility] [address] [id number] [place] [address]- 4386 Jul, [facility] [place] [facility] [address] [id number] [place] [address]- 8095 Jul, [facility] [place] [facility] [address] [id number] [place] [address]- 7576 Jul, [facility] [place] [facility] [address] [id number] [place] [address]- 4041 Jun, [facility] [place] [facility] [address] [id number] [place] [address]- 1689 Jun, [facility] [place] [facility] [address] [id number], [place] [address]- 1708 Jun, [facility] [place] [facility] [address] [id number] [place] [address]- 7842 Jun, [facility] [place] [facility] [address] [id number] [place] [address]- 1595 Jun, [facility] [place] [facility] [address] [id number] [place] [address]- 2957 Jun, [facility] [place] [facility] [address] [id number] [place] [address]- 7796 Jun, [facility] [place] [facility] [address] [id number] [place] [address]- 4854 10 Jun, 2012 [facility] [place] [facility] [address] [id number] [place] [address]- 2717 Jun, [facility] [place] [facility] [address] [id number] [place] [address]- 7766 26 May, 2012 [facility] [place] [facility] [address] [id number] [place] [address]- 2601 24 May, 2012 [facility] [place] [facility] [address] [id number] [place] [address]- 8046 May, [facility] [place] [facility] [address] [id number] [place] [address]- 0996 Apr, [facility] [place] [facility] [address] [id number] [place] [address]- 6757 Apr, [facility] [place] [facility] [address] [id number] [place] [address]- 3941 Apr, [facility] [place] [facility] [address] [id number] [place] [address]- 9287 Apr, [facility] [place] [facility] [address] [id number] [place] [address]- 3731 Apr, [facility] [place] [facility] [address] [id number] [place] [address]- 0326 Apr, [facility] [place] [facility] [address] [id number] [place] [address]- 1596 Mar, [facility] [place] [facility] [address] [id number] [place] [address]- 9637 Mar, [facility] [place] [facility] [address] [id number] [place] [address]- 1273 Mar, [facility] [place] [facility] [address] [id number] [place] [address]- 1941 Mar, [facility] [place] [facility] [address] [id number] [place] [address]- 1186 Feb, [facility] [address] [id number] [place] [address]- 6067 Feb, [facility] [address] [id number] [place] [address]- 5366 Feb, [facility] [address] [id number] [place] [address]- 9943 Feb, [facility] [address] [id number] [place] [address]- 6620 Feb, [facility] [address] [id number] [place] [address]- 3030 January, [facility] [address] [id number] [place] [address]- 7716 January, [facility] [address] [id number] [place] [address]- 8579 January, [facility] [address] [id number] [place] [address]- 6678 January, [facility] [address] [id number] [place] [address]- 9498 January, [facility] [address] [id number] [place] [address]- 4120 January, [facility] [address] [id number] [place] [address]- 5478 Dec, [facility] [address] [id number] [place] [address]- 7646 Dec, [facility] [place] [facility] [address] [id number] [place] [address]- 8928 Dec, [facility] [address] [id number] [place] [address]- 9091 Dec, [facility] [address] [id number] [place] [address]- 6164 Dec, [facility] [address] [id number] [place] [address]- 9775 27 Nov, 2011 [facility] [place] [facility] [address] [id number] [place] [address]- 2806 14 Nov, 2011 [facility] [place] [facility] [address] [id number] [place] [address]- 0406 12 Nov, 2011 [facility] [place] [facility] [address] [id number] [place] [address]- 2636 07 Nov, 2011 [facility] [place] [facility] [address] [id number] [place] [address]- 4890 29 Oct, 2011 [facility] [place] [facility] [address] [id number] [place] [address]- 6186 28 Oct, 2011 [facility] [place] [facility] [address] [id number] [place] [address]- 1076 24 Oct, 2011 [facility] [place] [facility] [address] [id number] [place] [address]- 4829 13 Oct, 2011 [facility] [place] [facility] [address] [id number] [place] [address]- 7203 08 Oct, 2011 [facility] [place] [facility] [address] [id number] [place] [address]- 7806 Sep, [facility] [place] [facility] [address] [id number] [place] [address]- 8396 Sep, [facility] [place] [facility] [address] [id number] [place] [address]- 3746 Sep, [facility] [place] [facility] [address] [id number] [place] [address]- 1916 Sep, [facility] [place] [facility] [address] [id number] [place] [address]- 5306 Sep, [facility] [place] [facility] [address] [id number] [place] [address]- 0346 Sep, [facility] [place] [facility] [address] [id number] [place] [address]- 5427 Aug, [facility] [place] [facility] [address] [id number] [place] 6669 Aug, [facility] [place] [facility] [address] [id number] [place] 0476 Aug, [facility] [place] [facility] [address] [id number] [place] [address]- 2606 Jul, [facility] [place] [facility] [address] [id number] [place] [address]- 5303 Jul, [facility] [place] [facility] [address] [id number] [place] [address]- 4604 Jul, [facility] [place] [facility] [address] [id number] [place] [address]- 9417 Jul, [facility] [place] [facility] [address] [id number] [place] [address]- 9530 Jun, [facility] [place] [facility] [address] [id number] [place] [address]- 8498 Jun, [facility] [place] [facility] [address] [id number] [place] [address]- 1629 Jun, [facility] [place] [facility] [address] [facility] [id number] [place] [address]- 1087 Jun, [facility] [place] [facility] [address] [id number] [place] [address]- 3101 Jun, [facility] [place] [facility] [address] [id number] [place] [address]- 4356 Jun, [facility] [place] [facility] [address] [id number] [place] [address]- 4374 Mar, [facility] [place] [facility] [address] [id number] [place] [address]- 4475 Dec, [facility] [place] [facility] [address] [id number] [place] [address] Dec, [facility] [place] [facility] [address] [id number] [place] [address] 18 Nov, 2010 [facility] [address] [id number] [place] [address] 16 Nov, 2010 [facility] [address] [id number] [place] [address] 10 Sep, 2010 [facility] [address] [id number] [place] [address] 31 Aug, 2010 [facility] [address] [id number] [place] [address] 29 Aug, 2010 [facility] [address] [id number] [place] [address] Aug, [facility] [address] [id number] [place] [address] Aug, [facility] [address] [id number] [place] [address] Aug, [facility] [address] [id number] [place] [address] 14 Aug, 2010 [facility] [address] [id number] [place] [address] Aug, [facility] [address] [id number] [place] [address]- 2017 08 Aug, 2010 [facility] [address] [id number] [place] [address] 07 Aug, 2010 [facility] [address] [id number] [place] [address] Aug, [facility] [place] [facility] [address] [id number] [place] [address] Aug, [facility] [address] [id number] [place] [address] Aug, [facility] [address] [id number] [place] [address] Jul, [facility] [place] [facility] [address] [id number] [place] [address] Jul, [facility] [place] [facility] [address] [id number] [place] [address] 30 Jul, 2010 [facility] [place] [facility] [address] [id number] [place] [address] Jul, [facility] [place] [facility] [address] [id number] [place] [address] 118[address] Jul, [facility] [place] [facility] [address] [id number] [place] [address] Jul, [facility] [place] [facility] [address] [id number] [place] [address] 24 Jun, 2010 [facility] [place] [facility] [address] [id number] [place] [address] Jun, [facility] [place] [facility] [address] [id number] [place] [address] Jun, [facility] [place] [facility] [address] [id number] [place] [address] 3468 Jun, [facility] [place] [facility] [address] [id number] [place] [address] Apr, [facility] [place] [facility] [address] [id number], [place] [address] Mar, [facility] [place] [facility] [address] [id number] [place] [address] Feb, [facility] [place] [facility] [address] [id number] [place] [address] January, [facility] [place] [facility] [address] [id number] [place] [address] 15 Dec, 2009 [facility] [place] [facility] [address] [id number] [place] [address] Nov, [facility] [place] [facility] [address] [id number] [place] [address] 31 Aug, 2009 [facility] [address] [id number] [place] [address] Aug, [facility] [place] [facility] [address] [id number] [place] [address] Aug, [facility] [address] [id number] [place] [address] Jul, [facility] [place] [facility] [address] [id number] [place] [address]268 Jul, [facility] [address] [id number] [place] [address] Jul, [facility] [place] [facility] [address] [facility] [id number] [place] [address] 39[address] Jun, [facility] [place] [facility] [address] [id number] [place] [address] Jun, [facility] [address] [id number] [place] [address] Jun, [facility] [place] [facility] [address] [facility] [id number] [place] [address] Jun, [facility] [address] [facility] [id number], [place] [address] Jun, [facility] [place] [facility] [address] [id number], [place] [address] Jun, [facility] [place] [facility] [address] [id number], [place] [address] Apr, [facility] [place] [facility] [address] [id number] [place] [address] Apr, [facility] [place] [facility] [address] [facility] [id number], [place] [address] Feb, [facility] [place] [facility] [address] [id number], [place] [address] January, [facility] [address] [facility] [id number] [place] [id number] Dec, IMMUNIZATIONS No Known Immunizations SOCIAL HISTORY Never Assessed REASON FOR VISIT Controlled Med Refill 09/26/17 PLAN OF CARE VITAL SIGNS MEDICATIONS Medication Instructions Dosage Frequency Start Date End Date Duration Status Percocet 10-325 MG Orally 4 times a day 1 tablet as needed 6h 28 Aug, 2017 28 days Active RESULTS No Results PROCEDURES [...] 2009 Surgical History colonoscopy 2009 ([facility]), 2013 ([place]) Surgical History heart cath: CAD w/ PTCA [...]
[2018-08-08 13:15] VITALS: BP 133/65
--- OUTSIDE RECORDS SUMMARY | 2018-08-08 13:17 | XMS REPORT ---
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 Name Role Phone NOEMI WASHBURN Unavailable PROBLEMS Type Condition ICD9-CM Code ALD76-KI Code Onset Dates Condition Status SNOMED Code Problem Chronic lymphocytic leukemia C91.10 Active 75210997 Problem Insomnia, unspecified type G47.00 Active 048639029 Problem Lymphocytosis D72.820 Active 17284474 Problem Anxiety F41.9 Active 29429473 Problem Eye exam abnormal R93.8 Active 539454991 Problem Morbid obesity E66.01 Active 259122228 Problem Diabetic polyneuropathy associated with type 2 diabetes mellitus E11.42 Active 22082644 Problem Essential hypertension I10 Active 31465659 Problem Falling R29.6 Active 929366177 Problem 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 Active 787598363 Problem Cough R05 Active 26826889 Problem Dysuria R30.0 Active 46335972 Problem Eustachian tube dysfunction, unspecified laterality H69.80 Active 52077541 Problem Bilateral primary osteoarthritis of knee M17.0 Active 274554207 Problem Polyneuropathy associated with underlying disease G63 Active 179162371 Problem Anemia of chronic illness D63.8 Active 627738176 Problem Retinal edema H35.81 Active 5675758 Problem DM neuro manif type II E11.49 Active 76258448 Problem Diabetes E11.9 Active 74123329 Problem Hypokalemia E87.6 Active 53042169 Problem Benign prostatic hyperplasia with lower urinary tract symptoms, unspecified morphology N40.1 Active 466563207 Problem Reactive airway disease J45.909 Active 244152406533 Problem Bipolar I disorder, most recent episode (or current) mixed, moderate F31.62 Active 95279267 Problem Chronic pain G89.29 Active 32571931 Problem Leukocytosis D72.829 Active 730231128 ALLERGIES No Information ENCOUNTERS Encounter Location Date Diagnosis [facility] [address] [address] Mar, [facility] [id number] [place] [address] 26128- 6056 January, [facility] [id number] [place] [address] 88394- 8662 Dec, Bipolar I disorder, most recent episode (or current) mixed, moderate F31.62 and BMI 50.0-59.9, adult Z68.43 [facility] [address] [place] [address] 84196- 1271 Dec, Bipolar I disorder, most recent episode (or current) mixed, moderate F31.62 [facility] [id number] [place] [address] 63450- 9512 Dec, Chronic pain G89.29 [facility] [id number] [place] [address] 92126- 5486 Dec, DM neuro manif type II E11.49 ; Right flank pain R10.9 ; USP 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 Z79.891 ; Encounter for medication monitoring Z51.81 and BMI 50.0-59.9, adult Z68.43 [facility] [address] [place] [address] 33025- 2556 Dec, Bipolar I disorder, most recent episode (or current) mixed, moderate F31.62 [facility] [address] [address] 2348 Nov, Bipolar I disorder, most recent episode (or current) mixed, moderate F31.62 [facility] [id number] [place] [address] 55561- 1881 Nov, Chronic pain G89.29 [facility] [id number] [place] [address] 79376- 9254 Nov, Bipolar I disorder, most recent episode (or current) mixed, moderate F31.62 [facility] [address] 20124- 7831 Nov, Hypokalemia E87.6 [facility] [address] 439102- 0756 Nov, Bipolar I disorder, most recent episode (or current) mixed, moderate F31.62 [facility] [address] 52602- 8018 Oct, Chronic pain G89.29 [facility] [address] 79465- 9290 Oct, BMI 50.0-59.9, adult Z68.43 and Bipolar I disorder, most recent episode (or current) mixed, moderate F31.62 [facility] [address] 70836- 9280 Oct, Bipolar I disorder, most recent episode (or current) mixed, moderate F31.62 [facility] [address] 60120- 9948 Oct, [facility] [address] 92150- 4469 Oct, Hypokalemia E87.6 [facility] [address] 67985- 1690 Oct, DM neuro manif type II E11.49 [facility] [address] 78198- 0430 Oct, Bipolar I disorder, most recent episode (or current) mixed, moderate F31.62 [facility] [address] 16588- 0960 Oct, Bipolar I disorder, most recent episode (or current) mixed, moderate F31.62 [facility] [address] 31830- 3247 14 Oct, 2017 Hyperkalemia E87.5 ; Falling R29.6 ; BMI 50.0-59.9, adult Z68.43 and Acute left ankle pain M25.572 [facility] [id number] [place] [address] 59095- 5547 08 Oct, 2017 DM neuro manif type II E11.49 [facility] [id number] [place] [address] 66653- 9427 Oct, [facility] [address] 87095- 5115 Sep, Chronic pain G89.29 [facility] [id number] [place] [address] 52001- 5161 Sep, [facility] [address] 54809- 0802 Sep, Bilateral primary osteoarthritis of knee M17.[address] 53536- 1222 Sep, Generalized edema R60.1 [facility] [id number] [place] [address] 81487- 9055 Sep, Bipolar I disorder, most recent episode (or current) mixed, moderate F31.62 [facility] [id number] [place] [address] 92607- 2339 15 Sep, 2017 Hypoxia R09.02 ; Other hypervolemia E87.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 ; Anemia of chronic illness D63.8 and BMI 50.0- 59.9, adult Z68.43 [facility] [id number] [place] [address] 29931- 3681 Sep, [facility] [address] 39007- 7841 Sep, Bipolar I disorder, most recent episode (or current) mixed, moderate F31.62 [facility] [address] 50426- 2589 Aug, Chronic pain G89.29 [facility] [address] [address] 1050 Aug, Generalized edema R60.1 [facility] [address] [address] 9081 Aug, [facility] [address] [place] [address] 85028- 5793 Aug, [facility] [id number] [place] [address] 17286- 7901 14 Aug, 2017 Bipolar I disorder, most recent episode (or current) mixed, moderate F31.62 [facility] [address] [place] [address] 39749- 3640 Aug, Bipolar I disorder, most recent episode (or current) mixed, moderate F31.62 [facility] [address] [place] [address] 51107- 2687 Aug, Chronic pain G89.29 [facility] [address] [place] [address] 06333- 0007 Jul, Bipolar I disorder, most recent episode (or current) mixed, moderate F31.62 [facility] [address] [place] [address] 55368- 0940 Jul, Bipolar I disorder, most recent episode (or current) mixed, moderate F31.62 and BMI 60.0-69.9, adult Z68.44 [facility] [address] [address]- 7387 16 Jul, 2017 Bipolar I disorder, most recent episode (or current) mixed, moderate F31.62 [facility] [address] [place] [address] 44916- 8931 06 Jul, 2017 Chronic pain G89.29 [facility] [address] [address]- 5682 02 Jul, 2017 Bipolar I disorder, most recent episode (or current) mixed, moderate F31.62 [facility] [address] [address]- 0544 18 Jun, 2017 Polyneuropathy associated with underlying disease G63 and Diabetes E11.9 [facility] [address] [address]- 0388 16 Jun, 2017 Bipolar I disorder, most recent episode (or current) mixed, moderate F31.62 [facility] [id number] [place] [address] 31503- 4376 09 Jun, 2017 Chronic pain G89.29 [facility] [id number] [place] [address] 15659- 9953 May, Bipolar I disorder, most recent episode (or current) mixed, moderate F31.62 [facility] [address] [address]- 0618 21 May, 2017 Bipolar I disorder, most recent episode (or current) mixed, moderate F31.62 [facility] [address] [address]- 7407 20 May, 2017 Diabetic polyneuropathy associated with type 2 diabetes mellitus E11.42 [facility] [address] [address]- 1323 18 May, 2017 Bipolar I disorder, most recent episode (or current) mixed, moderate F31.62 [facility] [address] [address]- 7159 13 May, 2017 Bipolar I disorder, most recent episode (or current) mixed, moderate F31.62 [facility] [address] [address]- 7247 12 May, 2017 Chronic pain G89.29 [facility] [address] [place] [address] 85797- 9641 Apr, Bipolar I disorder, most recent episode (or current) mixed, moderate F31.62 [facility] [address] [place] [address] 65417- 9593 Apr, [facility] [id number] [place] [address] 36796- 2721 Apr, Chronic pain G89.29 and DM neuro manif type II E11.49 [facility] [address] [address]- 7936 Apr, [facility] [id number] [place] [address] 875922- 7918 Apr, Bipolar I disorder, most recent episode (or current) mixed, moderate F31.62 [facility] [id number] [place] [address] 39386- 5259 Apr, Chronic pain G89.29 [facility] [id number] [place] [address] 11169- 8243 Apr, Iliotibial band syndrome, left M76.32 [facility] [id number] [place] [address] 51159- 5355 Apr, Bipolar I disorder, most recent episode (or current) mixed, moderate F31.62 [facility] [id number] [place] [address] 67396- 3319 Mar, Bipolar I disorder, most recent episode (or current) mixed, moderate F31.62 [facility] [address] [place] [address] 98990- 1274 Mar, Bipolar I disorder, most recent episode (or current) mixed, moderate F31.62 [facility] [address] [address]- 3244 Mar, [facility] [id number] [place] [address] 94792- 4206 Mar, Bipolar I disorder, most recent episode (or current) mixed, moderate F31.62 [facility] [id number] [place] [address] 05997- 5207 Mar, Chronic pain G89.29 [facility] [address] [place] [address] 82109- 5194 Mar, Bipolar I disorder, most recent episode (or current) mixed, moderate F31.62 [facility] [id number] [place] [address] 89023- 4163 Mar, Bipolar I disorder, most recent episode (or current) mixed, moderate F31.62 [facility] [id number] [place] [address] 20943- 0089 Mar, Acute pain of left knee M25.562 ; Left hip pain M25.552 ; Generalized edema R60.1 and Tongue swelling R22.0 [facility] [id number] [place] [address] 95445- 9770 Mar, [facility] [id number] [place] [address] 52474- 9342 Feb, Chronic pain G89.29 [facility] [id number] [place] [address] 97175- 5119 Feb, Diabetes E11.9 [facility] [id number] [place] [address] 19452- 8560 January, Chronic pain G89.29 [facility] [address] [place] [address] 31001- 0227 January, [facility] [id number] [place] [address] 98712- 2988 January, Bipolar I disorder, most recent episode (or current) mixed, moderate F31.62 [facility] [address] [place] [address] 25804- 5924 Dec, Bipolar I disorder, most recent episode (or current) mixed, moderate F31.62 [facility] [address] [place] [address] 97139- 1358 Dec, Chronic pain G89.29 [facility] [id number] [place] [address] 42801- 7759 Dec, Bipolar I disorder, most recent episode (or current) mixed, moderate F31.62 [facility] [address] [address]- 9039 Dec, Diabetes E11.9 ; Essential hypertension I10 ; Chronic pain G89.29 and Morbid obesity E66.01 [facility] [id number] [address]- 7739 Dec, [facility] [id number] [place] [address] 55681- 9440 Dec, Bipolar I disorder, most recent episode (or current) mixed, moderate F31.62 [facility] [id number] [place] [address] 46698- 1823 Dec, Bipolar I disorder, most recent episode (or current) mixed, moderate F31.62 [facility] [id number] [place] [address] 12467- 1541 Nov, Chronic pain G89.29 [facility] [id number] [place] [address] 38603- 4607 Nov, Bipolar I disorder, most recent episode (or current) mixed, moderate F31.62 [facility] [address] [address]- 4994 Nov, [facility] [address] [address]- 5371 Nov, Bipolar I disorder, most recent episode (or current) mixed, moderate F31.62 [facility] [address] [address]- 7767 Nov, Bipolar I disorder, most recent episode (or current) mixed, moderate F31.62 [facility] [address] [address]- 8774 Nov, [facility] [address] [address]- 8361 Nov, [facility] [id number] [place] [address] 48575- 2612 Nov, [facility] [id number] [place] [address] 38733- 2347 Oct, Chronic pain G89.29 [facility] [id number] [place] [address] 77350- 4892 Oct, Bipolar I disorder, most recent episode (or current) mixed, moderate F31.62 [facility] [id number] [place] [address] 58522- 9119 Oct, [facility] [id number] [place] [address] 64097- 4419 Oct, Chronic pain G89.29 ; Diabetes E11.9 ; Anxiety F41.9 and 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 [facility] [id number] [place] [address] 01031- 6281 Oct, [facility] [id number] [place] [address] 06765- 0173 Oct, Diabetes E11.9 [facility] [id number] [place] [address] 91032- 4232 Oct, Bipolar I disorder, most recent episode (or current) mixed, moderate F31.62 [facility] [address] [place] [address] 28316- 0539 Sep, Chronic pain G89.29 [facility] [id number] [place] [address] 96202- 0168 Sep, Chronic pain G89.29 [facility] [id number] [place] [address] 56103- 7484 Aug, Chronic pain G89.29 [facility] [id number] [place] [address] 32361- 6795 Jul, [facility] [id number] [place] [address] 54284- 4757 Jul, Diabetes E11.9 [facility] [id number] [place] [address] 50864- 0547 Jul, Chronic pain G89.29 [facility] [id number] [place] [address]- 1581 Jul, Bipolar I disorder, most recent episode (or current) mixed, moderate F31.62 [facility] [address] 781297- 8422 Jun, Bipolar I disorder, most recent episode (or current) mixed, moderate F31.62 [facility] [address]- 1430 Jun, [facility] [address] 00430- 1519 Jun, Bipolar I disorder, most recent episode (or current) mixed, moderate F31.62 [facility] [id number] [place] [address] 51945- 4846 30 May, 2016 Insomnia, unspecified type G47.00 [facility] [address] 28631- 1381 May, Bipolar I disorder, most recent episode (or current) mixed, moderate F31.62 [facility] [id number] [place] [address] 09204- 4691 14 May, 2016 [facility] [id number] [place] [address] 654733- 1406 08 May, 2016 Bipolar I disorder, most recent episode (or current) mixed, moderate F31.62 [facility] [address] 65060- 7541 06 May, 2016 Diabetes E11.9 and Essential hypertension I10 [facility] [id number] [place] [address] 14837- 4646 Apr, Chronic pain G89.29 [facility] [address] [place] [address]- 3989 Apr, Bipolar I disorder, most recent episode (or current) mixed, moderate F31.62 [facility] [id number] [place] [address] 21403- 9337 Apr, [facility] [id number] [place] [address] 08791- 5203 Apr, [facility] [id number] [place] [address] 73126- 6960 Mar, Chronic pain G89.29 ; Headache, unspecified headache type R51 ; Neuropathy G62.9 ; Pain of right hip joint M25.551 and Essential hypertension I10 [facility] [id number] [place] [address] 78953- 2546 Mar, Chronic pain G89.29 [facility] [id number] [place] [address] 36822- 4328 Mar, Bipolar I disorder, most recent episode (or current) mixed, moderate F31.62 [facility] [id number] [place] [address] 19698- 7038 Feb, Bipolar I disorder, most recent episode (or current) mixed, moderate F31.62 and Insomnia, unspecified type G47.00 [facility] [id number] [place] [address] 52061- 7865 Feb, Chronic pain G89.29 [facility] [id number] [place] [address] 16912- 5713 Feb, Bipolar I disorder, most recent episode (or current) mixed, moderate F31.62 [facility] [id number] [place] [address] 26855- 4709 January, Bipolar I disorder, most recent episode (or current) mixed, moderate F31.62 [facility] [id number] [place] [address] 78080- 5810 January, Chronic pain G89.29 [facility] [id number] [place] [address] 88156- 4229 January, Chronic pain G89.29 and Essential hypertension I10 [facility] [id number] [place] [address] 76858- 4806 January, Bipolar I disorder, most recent episode (or current) mixed, moderate F31.62 [facility] [address] 30839- 0029 Dec, [facility] [address] 63642- 0504 Dec, [facility] [address] 67641- 7327 Dec, [facility] [id number] [place] [address] 70559- 2903 Dec, [facility] [address] 86059- 2711 Nov, Reactive airway disease J45.909 [facility] [id number] [place] [address] 43531- 6256 Nov, [facility] [id number] [place] [address] 83695- 8954 Nov, [facility] [id number] [place] [address] 33899- 2013 Nov, [facility] [id number] [place] [address] 78445- 6043 Nov, [facility] [id number] [place] [address] 55938- 6287 Nov, Onychomycosis B35.1 ; Hammertoe M20.40 ; [place] or callus L84 and DM neuro manif type II E11.49 [facility] [address] [place] [address] 47916- 1506 15 Nov, 2015 Chronic pain G89.29 ; Leukocytosis D72.829 and Diabetes E11.9 [facility] [address] [address]- 5431 Nov, [facility] [id number] [place] [address] 58569- 1018 Oct, Bronchitis J40 [facility] [id number] [place] [address] 86048- 2261 Oct, [facility] [address] 07736- 9538 Oct, [facility] [id number] [place] [address] 70230- 7798 Oct, Mastoiditis, unspecified laterality H70.90 and Type 2 diabetes mellitus with complication E11.8 [facility] [id number] [place] [address] 10594- 4271 Sep, [facility] [id number] [place] [address] 50123- 8975 Sep, Dysuria R30.0 ; Cough R05 ; Benign prostatic hyperplasia with lower urinary tract symptoms, unspecified morphology N40.1 ; Hypokalemia E87.6 and Eustachian tube dysfunction, unspecified laterality H69.80 [facility] [address] [place] [address] 44415- 0798 Sep, Moderate mixed bipolar I disorder F31.62 [facility] [id number] [place] [address] 71405- 5441 Sep, Hypokalemia E87.6 [facility] [id number] [place] [address] 26400- 1777 Sep, [facility] [id number] [place] [address] 15449- 2420 Sep, Upper respiratory tract infection, unspecified type J06.9 [facility] [id number] [place] [address] 23295- 3621 Aug, [facility] [address] [address]- 4658 Aug, Dysuria R30.0 [facility] [address] 5126 Aug, [facility] [address] [address]- 6586 Jul, [facility] [id number] [place] [address] 630545- 9336 Jul, [facility] [address] [address]- 7371 Jul, [facility] [id number] [place] [address] 854845- 4802 Jul, [facility] [address] [address] Jun, [facility] [id number] [place] [id number] Jun, [facility] [address] [address] Jun, [facility] [address] [address] May, [facility] [address] [address] May, Bipolar I disorder, most recent episode (or current) mixed, moderate 296.62 [facility] [address] [address] 16 May, 2015 [facility] [address] [address] May, Bipolar I disorder, most recent episode (or current) mixed, moderate 296.62 and Major depressive disorder, recurrent episode, severe, specified as with psychotic behavior 296.34 [facility] [address] [address] May, Bipolar I disorder, most recent episode (or current) mixed, moderate 296.62 [facility] [address] [address] May, [facility] [id number] [place] [address] 17747- 8038 Apr, [facility] [id number] [place] [address] 78831- 0755 Apr, [facility] [id number] [place] [address] 02998- 0613 Apr, Unspecified disorder of kidney and ureter 593.9 and Diabetes mellitus type 2, uncontrolled 250.02 [facility] [id number] [place] [address] 21371- 4136 Apr, [facility] [id number] [place] [address] 82532- 3439 Apr, [facility] [id number] [place] [address] 52050- 5713 Apr, [facility] [id number] [place] [address] 99829- 2188 Apr, [facility] [id number] [place] [address] 62909- 5961 Apr, Diabetes mellitus type II, uncontrolled 250.02 [facility] [address] [address] 5210 Apr, [facility] [id number] [place] [address] 19178- 2254 Mar, [facility] [address] [address] 4134 Mar, [facility] [id number] [place] [address] 50102- 0053 Mar, [facility] [address] [address] 8824 Mar, Major depressive disorder, recurrent episode, severe, specified as with psychotic behavior 296.34 and Bipolar I disorder, most recent episode (or current) mixed, moderate 296.62 [facility] [id number] [place] [address] 93828- 4884 Mar, Diabetes 250.00 ; Anuria 788.5 ; Nausea and vomiting 787.01 and Diarrhea 787.91 [facility] [id number] [place] [address] 17273- 4473 Mar, Diabetes 250.00 [facility] [id number] [place] [address] 99655- 3355 Mar, [facility] [address] [address]- 5437 Mar, Diabetes 250.00 [facility] [id number] [place] [address] 28004- 5208 Mar, [facility] [id number] [place] [address] 85241- 6401 Mar, [facility] [id number] [place] [address] 07270- 0055 Mar, [facility] [id number] [place] [address] 54794- 5043 Mar, [facility] [id number] [place] [address] 91488- 3088 Mar, Bipolar I disorder, most recent episode (or current) mixed, moderate 296.62 and Major depressive disorder, recurrent episode, severe, specified as with psychotic behavior 296.34 [facility] [id number] [place] [address] 86689- 0829 Mar, Magnesium deficiency 275.2 ; Hypokalemia 276.8 ; Nausea & vomiting 787.01 and Diabetes mellitus type 2, uncontrolled 250.02 [facility] [id number] [place] [address] 32709- 5144 Feb, [facility] [id number] [place] [address] 15225- 2221 Feb, Bipolar I disorder, most recent episode (or current) mixed, moderate 296.62 [facility] [id number] [place] [address] 31646- 6674 Feb, Nausea and vomiting 787.01 ; Left elbow pain 719.42 ; Anuria 788.5 and Diabetes 250.00 [facility] [address] [address]36- 3747 Feb, [facility] [address] 33731- 0069 Feb, Hypopotassemia 276.8 and Hypokalemia 276.8 [facility] [address] 51932- 8487 Feb, Hypopotassemia 276.8 and Hypokalemia 276.8 [facility] [address] 94813- 6837 Feb, Seborrheic keratoses 702.19 [facility] [id number] [place] [address] 05649- 7372 Feb, Hypopotassemia 276.8 and Low magnesium levels 275.2 [facility] [id number] [place] [address] 47739- 1972 January, [facility] [id number] [place] [address] 34802- 2855 January, [facility] [id number] [place] [address] 79930- 5800 January, [facility] [id number] [place] [address] 88275- 1720 January, Scalp lesion 709.9 [facility] [id number] [place] [address] 48321- 4476 January, [facility] [id number] [place] [address] 96882- 7010 Dec, Tear of medial cartilage or meniscus of knee, current 836.0 and 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 [facility] [address] [id number] [place] [address]- 5996 29 Dec, 2014 [facility] [address] [facility] [id number] [place] [address]- 7536 29 Dec, 2014 [facility] [address] [facility] [id number] [address]- 3716 28 Dec, 2014 Squamous cell carcinoma, 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 [facility] [address] [id number] [place] [address] 2546 14 Dec, 2014 [facility] [address] [facility] [id number] [place] [address], [place] [address]- 9846 Dec, [facility] [id number] [address]- 9229 Nov, [facility] [id number] [address]- 0263 Nov, [facility] [address] [facility] [id number] [address]- 1211 Nov, [facility] [address] [id number] [address]- 2081 Nov, [facility] [address] [id number] [address]- 9465 Nov, [facility] [id number] [address]26 Nov, [facility] [address] [facility] [id number] [address]- 4606 Nov, [facility] [address] [facility] [id number] [address] 2546 Nov, [facility] [address] [facility] [id number] [address]- 0736 Nov, [facility] [address] [id number] [address]- 2773 Nov, [facility] [place] [facility] [address] [facility] [id number] [place] [address]- 6525 Nov, [facility] [place] [facility] [address] [facility] [id number] [place] [address]- 8341 Nov, [facility] [place] [facility] [address] [facility] [id number] [place] [address]- 6546 Oct, 2014 [facility] [place] [facility] [address] [facility] [id number] [place] [address]- 5122 Oct, 2014 [facility] [place] [facility] [address] [facility] [id number] [place] [address]- 8261 Oct, 2014 [facility] [place] [facility] [address] [facility] [id number] [place] [address]- 5555 Oct, 2014 [facility] [place] [facility] [address] [facility] [id number] [place] [address]- 2604 Oct, 2014 [facility] [place] [facility] [address] [facility] [id number] [place] [address]- 7677 Oct, 2014 [facility] [place] [facility] [address] [facility] [id number] [place] [address]- 1753 Oct, 2014 [facility] [place] [facility] [address] [facility] [id number] [place] [address]- 3940 Oct, [facility] [place] [facility] [address] [facility] [id number] [address]- 3767 Oct, [facility] [place] [facility] [address] [facility] [id number] [place] [address]- 1392 Sep, [facility] [place] [facility] [address] [facility] [id number] [place] [address]- 4895 Sep, [facility] [place] [facility] [address] [facility] [id number] [place] [address]- 5873 Sep, [facility] [place] [facility] [address] [facility] [id number] [place] [address]- 1296 Sep, [facility] [place] [facility] [address] [id number] [place] [address]- 9709 Sep, [facility] [place] [facility] [address] [id number] [place] [address]- 3828 Sep, [facility] [place] [facility] [address] [id number] [place] [address]- 4468 Sep, [facility] [place] [facility] [address] [id number] [place] [address]- 5452 Sep, [facility] [place] [facility] [address] [id number] [place] [address]- 4967 Sep, [facility] [place] [facility] [address] [id number] [place] [address]- 6811 Sep, [facility] [place] [facility] [address] [id number] [place] [address]- 4202 Sep, [facility] [place] [facility] [address] [id number] [place] [address]- 6668 Sep, [facility] [place] [facility] [address] [id number] [place] [address]- 1496 Sep, [facility] [place] [facility] [address] [id number] [place] [address]- 8214 Sep, [facility] [place] [facility] [address] [id number] [place] [address]- 0818 Sep, [facility] [place] [facility] [address] [id number] [place] [address]- 7146 Sep, [facility] [place] [facility] [address] [id number] [place] [address]- 1164 Aug, [facility] [place] [facility] [address] [id number] [place] [address]- 7965 Aug, [facility] [place] [facility] [address] [id number] [place] [address]- 0489 Aug, [facility] [place] [facility] [address] [id number] [place] [address]- 5790 Aug, [facility] [address] [id number] [place] [address]- 5835 Aug, [facility] [address] [id number] [place] 4241 Aug, [facility] [address] [id number] [place] 1560 Aug, [facility] [address] [id number] [place] [address]- 8257 Aug, [facility] [address] [id number] [place] [address]- 0882 Aug, [facility] [address] [id number] [place] [address]- 5026 Aug, [facility] [address] [id number] [place] [address]- 6059 Aug, [facility] [address] [place] [id number] Aug, [facility] [address] [id number] [place] [address]- 2373 Aug, [facility] [address] [id number] [place] [address]- 3485 Aug, [facility] [address] [id number] [place] [address]- 2376 Aug, [facility] [address] [id number] [place] [address]- 2055 Aug, [facility] [address] [id number] [place] [address]- 5143 Aug, [facility] [address] [id number] [place] [address]- 4976 Aug, [facility] [address] [id number] [place] [address]- 3148 08 Aug, 2014 [facility] [address] [id number] [place] [address]- 8536 Aug, [facility] [place] [facility] [address] [id number] [place] [address]- 6496 Aug, [facility] [place] [facility] [address] [id number] [place] 6332 Aug, [facility] [place] [facility] [address] [id number] [place] [address]- 0491 Aug, [facility] [place] [facility] [address] [id number] [place] [address]- 4728 Aug, [facility] [place] [facility] [address] [id number] [place] [address]- 8991 Aug, [facility] [place] [facility] [address] [id number] [place] [address]- 5274 Aug, [facility] [place] [facility] [address] [id number] [place] [address]- 2631 Aug, [facility] [place] [facility] [address] [id number] [place] [address]- 6346 Aug, [facility] [place] [facility] [address] [id number] [place] [address]- 2249 Aug, [facility] [place] [facility] [address] [id number] [place] [address]- 5551 Aug, [facility] [place] [facility] [address] [id number] [place] [address]- 0525 Jul, [facility] [place] [facility] [address] [id number] [place] [address]- 0779 Jul, [facility] [place] [facility] [address] [id number] [place] [address]- 7161 Jul, [facility] [place] [facility] [address] [id number] [place] [address]- 8264 Jul, [facility] [place] [facility] [address] [id number] [place] [address]- 5231 Jul, [facility] [place] [facility] [address] [id number] [place] [address]- 1331 Jul, [facility] [place] [facility] [address] [id number] [place] [address]- 7560 Jul, [facility] [place] [facility] [address] [id number] [place] [address]- 2349 Jul, [facility] [place] [facility] [address] [id number] [place] [address]- 7504 Jul, [facility] [place] [facility] [address] [id number] [place] [address]- 2407 Jul, [facility] [place] [facility] [address] [id number] [place] [address]- 5481 Jun, [facility] [place] [facility] [address] [id number] [place] [address]- 4017 Jun, [facility] [place] [facility] [address] [id number] [place] [address]- 8002 Jun, [facility] [place] [facility] [address] [id number] [place] [address]- 7945 Jun, [facility] [place] [facility] [address] [id number] [place] [address]- 9280 Jun, [facility] [place] [facility] [address] [id number] [place] [address]- 7513 Jun, [facility] [place] [facility] [address] [id number] [place] [address]- 3266 Jun, [facility] [place] [facility] [address] [id number] [place] [address]- 1499 Jun, [facility] [place] [facility] [address] [id number] [place] [address]- 7077 Jun, [facility] [place] [facility] [address] [id number] [place] [address]- 0739 Jun, [facility] [place] [facility] [address] [id number] [place] [address]- 9558 May, [facility] [place] [facility] [address] [id number] [place] [address] 2548 29 Sep, 2013 [facility] [place] [facility] [address] [id number] [place] [address] 2544 26 Sep, 2013 [facility] [place] [facility] [address] [id number] [place] [address]- 3681 26 Sep, 2013 [facility] [place] [facility] [address] [id number] [place] [address]- 8700 17 Sep, 2013 [facility] [place] [facility] [address] [id number] [place] [address]- 6839 17 Sep, 2013 [facility] [place] [facility] [address] [id number] [place] [address]- 0747 15 May, 2013 [facility] [place] [facility] [address] [id number] [place] [address]- 1369 15 May, 2013 [facility] [place] [facility] [address] [id number] [place] [address]- 2148 15 May, 2013 [facility] [place] [facility] [address] [id number] [place] [address]- 2439 15 May, 2013 [facility] [place] [facility] [address] [id number] [place] [address]- 2143 10 May, 2013 [facility] [place] [facility] [address] [id number] [place] [address] 2549 10 Sep, 2013 [facility] [place] [facility] [address] [id number] [place] [address]- 2544 09 Sep, 2013 [facility] [place] [facility] [address] [id number] [place] [address] 2547 09 Sep, 2013 [facility] [place] [facility] [address] [id number] [place] [address]- 2542 04 Sep, 2013 [facility] [place] [facility] [address] [id number] [place] [address]- 9063 04 Sep, 2013 [facility] [place] [facility] [address] [id number] [place] [address]- 1102 Apr, [facility] [place] [facility] [address] [id number] [place] [address]- 6193 Apr, [facility] [place] [facility] [address] [id number] [place] [address]- 9805 Apr, [facility] [place] [facility] [address] [id number] [place] [address]- 5415 Apr, [facility] [place] [facility] [address] [id number] [place] [address]- 6216 Apr, [facility] [place] [facility] [address] [id number] [place] [address]- 4554 Apr, [facility] [place] [facility] [address] [id number] [place] [address]- 3838 Apr, [facility] [place] [facility] [address] [id number] [place] [address]- 3054 Apr, [facility] [place] [facility] [address] [id number] [place] [address]- 3254 Apr, [facility] [place] [facility] [address] [id number] [place] [address]- 7708 Apr, [facility] [place] [facility] [address] [id number] [place] [address]- 5699 Apr, [facility] [place] [facility] [address] [id number] [place] [address]- 4509 Apr, [facility] [place] [facility] [address] [id number] [place] [address]- 8728 Apr, [facility] [place] [facility] [address] [id number] [place] [address]- 1055 Apr, [facility] [place] [facility] [address] [id number] [place] [address]- 1376 Apr, [facility] [place] [facility] [address] [id number] [place] [address]- 9009 Mar, [facility] [place] [facility] [address] [id number] [place] [address]- 0204 Mar, 2013 [facility] [place] [facility] [address] [id number] [place] [address]- 2176 Mar, 2013 [facility] [place] [facility] [address] [id number] [place] [address]- 1804 Mar, 2013 [facility] [place] [facility] [address] [id number] [place] [address]- 3974 Mar, 2013 [facility] [place] [facility] [address] [id number] [place] [address]- 5636 Mar, 2013 [facility] [place] [facility] [address] [id number] [place] [address]- 0945 Mar, 2013 [facility] [place] [facility] [address] [id number] [place] [address]- 8227 Mar, 2013 [facility] [place] [facility] [address] [id number] [place] [address]- 7428 Mar, 2013 [facility] [place] [facility] [address] [id number] [place] [address]- 2316 Mar, 2013 [facility] [place] [facility] [address] [id number] [place] [address]- 5433 Mar, 2013 [facility] [place] [facility] [address] [id number] [place] [address]- 9054 Mar, 2013 [facility] [place] [facility] [address] [id number] [place] [address]- 9663 Mar, 2013 [facility] [place] [facility] [address] [id number] [place] [address]- 9595 Mar, 2013 [facility] [place] [facility] [address] [id number] [place] [address]- 2888 Mar, 2013 [facility] [place] [facility] [address] [id number] [place] [address]- 2895 Mar, 2013 [facility] [place] [facility] [address] [id number] [place] [address]- 4326 Mar, [facility] [place] [facility] [address] [id number] [place] [address]- 9751 Mar, [facility] [place] [facility] [address] [id number] [place] [address]- 6480 Feb, [facility] [place] [facility] [address] [id number] [place] [address]- 4468 Feb, [facility] [place] [facility] [address] [id number] [place] [address] Feb, [facility] [place] [facility] [address] [id number] [place] [address] Feb, [facility] [place] [facility] [address] [id number] [place] [address] Feb, [facility] [place] [facility] [address] [id number] [place] [address] Feb, [facility] [place] [facility] [address] [id number] [place] [address] Feb, [facility] [place] [facility] [address] [id number] [place] [address] Feb, [facility] [place] [facility] [address] [id number] [place] [address] Feb, [facility] [place] [facility] [address] [id number] [place] [address] Feb, [facility] [place] [facility] [address] [id number] [place] [address] Feb, [facility] [place] [facility] [address] [id number] [place] [address] Feb, [facility] [place] [facility] [address] [id number] [place] [address] Feb, [facility] [place] [facility] [address] [id number] [place] [address] Feb, [facility] [place] [facility] [address] [id number] [place] [address] January, [facility] [address] [id number] [place] [address] January, [facility] [address] [id number] [place] [address] January, [facility] [address] [id number] [place] [address] January, [facility] [address] [id number] [place] [address] January, [facility] [address] [id number] [place] [address] January, [facility] [address] [id number] [place] [address]- [address] January, [facility] [address] [id number] [place] [address] January, [facility] [address] [id number] [place] [address] January, [facility] [address] [id number] [place] [address]395 January, [facility] [address] [id number] [place] [address]607 January, [facility] [address] [id number] [place] [address]- 4[address] January, [facility] [address] [id number] [place] [address] 7940 January, [facility] [address] [id number] [place] [address] January, [facility] [address] [id number] [place] [address] Dec, [facility] [address] [id number] [place] [address] Dec, [facility] [place] [facility] [address] [id number] [place] [address] 3567 Dec, [facility] [place] [facility] [address] [id number] [place] [address]- 95[address] Dec, [facility] [place] [facility] [address] [id number] [place] [address]36 Dec, [facility] [place] [facility] [address] [id number] [place] [address] 79[address] Dec, [facility] [place] [facility] [address] [id number] [place] [address] 27[address] Dec, [facility] [place] [facility] [address] [id number] [place] [address]- 8827 Dec, [facility] [place] [facility] [address] [id number] [place] [address] Dec, [facility] [place] [facility] [address] [id number] [place] [address] 60[address] Dec, [facility] [place] [facility] [address] [id number] [place] [address]- 16[address] Nov, [facility] [place] [facility] [address] [id number] [place] [address] Nov, [facility] [place] [facility] [address] [id number] [place] [address]- [address] Nov, [facility] [place] [facility] [address] [id number] [place] [address]- 94[address] Nov, [facility] [place] [facility] [address] [id number] [place] [address] Nov, [facility] [place] [facility] [address] [id number] [place] [id number] Nov, [facility] [place] [facility] [address] [id number] [place] [address] Nov, [facility] [place] [facility] [address] [id number] [place] [address]- 2568 Nov, [facility] [place] [facility] [address] [id number] [place] [address]- [address] Nov, [facility] [place] [facility] [address] [id number] [place] [address]- 1586 Nov, [facility] [place] [facility] [address] [id number] [place] [address] Oct, [facility] [place] [facility] [address] [id number] [place] [address] 3300 Oct, [facility] [place] [facility] [address] [id number] [place] [address] 9696 Oct, [facility] [place] [facility] [address] [id number] [place] [address] 7316 Oct, [facility] [place] [facility] [address] [id number] [place] [address] 238[address] Oct, [facility] [place] [facility] [address] [id number] [place] [address] 1009 Oct, [facility] [place] [facility] [address] [id number] [place] [address] Oct, [facility] [place] [facility] [address] [facility] [id number] [place] [address] Oct, [facility] [place] [facility] [address] [id number] [place] [address] 2546 Oct, [facility] [place] [facility] [address] [id number] [place] [address] 2540 Oct, [facility] [place] [facility] [address] [id number] [place] [address] 5708 Oct, [facility] [place] [facility] [address] [id number] [place] [address] 4336 Oct, [facility] [place] [facility] [address] [facility] [id number] [place] [address]- 1722 Oct, [facility] [place] [facility] [address] [id number] [place] [address]- 1836 Oct, [facility] [place] [facility] [address] [id number] [place] [address] 3722 Sep, [facility] [place] [facility] [address] [id number] [place] [address]- 7676 Sep, [facility] [place] [facility] [address] [id number] [place] [address]- 5795 Sep, [facility] [place] [facility] [address] [id number] [place] [address]- 1231 Sep, [facility] [place] [facility] [address] [id number] [place] [address]- 8512 Sep, [facility] [place] [facility] [address] [id number] [place] [address]- 5484 Sep, [facility] [place] [facility] [address] [id number] [place] [address]- 4131 Sep, [facility] [place] [facility] [address] [id number] [place] [address]- 0438 Sep, [facility] [place] [facility] [address] [id number] [place] [address]- 2707 Sep, [facility] [place] [facility] [address] [id number] [place] [address] 26[address] Sep, [facility] [place] [facility] [address] [id number] [place] [address] 3715 Aug, [facility] [place] [facility] [address] [id number] [place] [address]- 7090 Aug, [facility] [place] [facility] [address] [id number] [place] [address]- 0320 Jul, [facility] [place] [facility] [address] [id number] [place] [address]- 9391 Jul, [facility] [place] [facility] [address] [id number] [place] [address]- 1043 13 Jul, 2013 [facility] [place] [facility] [address] [id number] [place] [address]- 8530 13 Jul, 2013 [facility] [place] [facility] [address] [id number] [place] [address]- 2226 Jul, [facility] [place] [facility] [address] [id number] [place] [address]- 5595 Jul, [facility] [place] [facility] [address] [id number] [place] [address]- 3249 Jul, [facility] [place] [facility] [address] [id number] [place] [address]- 9309 Jul, [facility] [place] [facility] [address] [id number] [place] [address]- 3253 Jul, [facility] [place] [facility] [address] [id number] [place] [address]- 2100 Jul, [facility] [place] [facility] [address] [id number] [place] [address]- 0848 Jul, [facility] [place] [facility] [address] [id number] [place] [address]- 0408 Jul, [facility] [place] [facility] [address] [facility] [id number] [place] [address]- 7039 Jul, [facility] [place] [facility] [address] [id number] [place] [address]- 2837 Jul, [facility] [place] [facility] [address] [id number] [place] [address]- 254 Jul, [facility] [place] [facility] [address] [id number] [place] [address]- 7444 Jul, [facility] [place] [facility] [address] [id number] [place] [address]- 5646 Jul, [facility] [place] [facility] [address] [id number] [place] [address] 9374 Jul, [facility] [place] [facility] [address] [id number] [place] [address] 2541 Jul, 2012 [facility] [place] [facility] [address] [id number] [place] [address]- 4153 Jun, 2012 [facility] [place] [facility] [address] [id number] [place] [address]- 2547 Jun, 2012 [facility] [place] [facility] [address] [id number] [place] [address]- 1534 Jun, 2012 [facility] [place] [facility] [address] [id number] [place] [address]- 1221 Jun, 2012 [facility] [place] [facility] [address] [id number] [place] [address]- 9491 Jun, 2012 [facility] [place] [facility] [address] [id number] [place] [address]- 9763 Jun, 2012 [facility] [place] [facility] [address] [id number] [place] [address]- 8658 Jun, [facility] [place] [facility] [address] [id number] [place] [address]- 7363 Jun, [facility] [place] [facility] [address] [id number] [place] [address]- 8277 Jun, [facility] [place] [facility] [address] [id number] [place] [address]- 7600 Jun, [facility] [place] [facility] [address] [id number] [place] [address] 254 Jun, [facility] [place] [facility] [address] [id number] [place] [address]- 5667 May, [facility] [place] [facility] [address] [id number] [place] [address]- 1740 25 May, 2013 [facility] [place] [facility] [address] [id number] [place] [address]- 4583 19 May, 2013 [facility] [place] [facility] [address] [id number] [place] [address]- 4474 17 May, 2013 [facility] [place] [facility] [address] [id number] [place] [address]- 4903 11 May, 2013 [facility] [place] [facility] [address] [id number] [place] [address]- 9196 10 May, 2013 [facility] [place] [facility] [address] [id number] [place] [address] 2546 May, [facility] [place] [facility] [address] [id number] [place] [address]- 9842 05 May, 2013 [facility] [place] [facility] [address] [id number] [place] [address]- 4798 Apr, [facility] [place] [facility] [address] [id number] [place] [address]- 1689 Apr, [facility] [place] [facility] [address] [id number] [place] [address]- 9036 Apr, [facility] [place] [facility] [address] [id number] [place] [address]- 0393 Apr, [facility] [place] [facility] [address] [id number] [place] [address]- 5927 Apr, [facility] [place] [facility] [address] [id number] [place] [address]- 8707 Mar, [facility] [place] [facility] [address] [id number] [place] [address]- 3857 Mar, [facility] [place] [facility] [address] [id number] [place] [address]- 9525 Mar, [facility] [place] [facility] [address] [id number] [place] [address]- 6898 Mar, [facility] [place] [facility] [address] [id number] [place] [address]- 0982 Mar, [facility] [place] [facility] [address] [id number] [place] [address]- 7900 Mar, [facility] [place] [facility] [address] [id number] [place] [address]- 0916 Mar, [facility] [address] [id number] [place] [address]- 5344 Mar, [facility] [address] [id number] [place] [address]- 2504 Feb, [facility] [address] [id number] [place] [address]- 8371 Feb, [facility] [address] [id number] [place] [address]- 5464 January, [facility] [address] [id number] [place] [address]- 4385 January, [facility] [address] [id number] [place] [address]- 7002 Dec, [facility] [address] [id number] [place] [address]- 4722 Dec, [facility] [address] [id number] [place] [address]- 7219 Nov, [facility] [address] [id number] [place] [address]- 0956 Nov, [facility] [address] [id number] [place] [address]- 2990 Nov, [facility] [address] [id number] [place] [address]- 1127 Nov, [facility] [address] [id number] [place] [address]- 1687 Oct, [facility] [place] [facility] [address] [id number] [place] [address]- 9669 Oct, [facility] [address] [id number] [place] [address]- 4576 Oct, [facility] [address] [id number] [place] [address]- 2036 26 Oct, 2012 [facility] [address] [id number] [place] [address]- 1816 16 Oct, 2012 [facility] [place] [facility] [address] [id number] [place] [address]- 3176 14 Oct, 2012 [facility] [place] [facility] [address] [id number] [place] [address]- 4673 08 Oct, 2012 [facility] [place] [facility] [address] [id number] [place] [address]- 1974 07 Oct, 2012 [facility] [place] [facility] [address] [id number] [place] [address]- 3879 03 Oct, 2012 [facility] [place] [facility] [address] [id number] [place] [address]- 5040 30 Sep, 2012 [facility] [place] [facility] [address] [id number] [place] [address]- 9619 Sep, [facility] [place] [facility] [address] [id number] [place] [address]- 1802 Sep, [facility] [address] [id number] [place] [address]- 5792 Sep, [facility] [place] [facility] [address] [id number] [place] [address]- 7565 Sep, [facility] [address] [id number] [place] [address]- 0854 Sep, [facility] [place] [facility] [address] [id number] [place] [address]- 0231 Sep, [facility] [place] [facility] [address] [id number] [place] [address]- 1888 Sep, [facility] [place] [facility] [address] [id number] [place] [address]- 0523 Aug, [facility] [place] [facility] [address] [id number] [place] [address]- 7585 Aug, [facility] [place] [facility] [address] [id number] [place] [address]- 3649 Aug, [facility] [place] [facility] [address] [id number] [place] [address]- 1268 Aug, [facility] [place] [facility] [address] [id number] [place] [address]- 1265 Aug, [facility] [place] [facility] [address] [id number] [place] [address]- 4748 Aug, [facility] [place] [facility] [address] [id number] [place] [address]- 7581 Aug, [facility] [place] [facility] [address] [id number] [place] [address]- 6629 Aug, [facility] [place] [facility] [address] [id number] [place] [address]- 6309 Jul, [facility] [place] [facility] [address] [id number] [place] [address]- 9692 Jul, [facility] [place] [facility] [address] [id number] [place] [address]- 1744 Jul, [facility] [place] [facility] [address] [id number] [place] [address]- 7593 Jul, [facility] [place] [facility] [address] [id number] [place] [address]- 6324 Jul, [facility] [place] [facility] [address] [id number] [place] [address]- 3210 Jul, [facility] [place] [facility] [address] [id number] [place] [address]- 9649 Jun, [facility] [place] [facility] [address] [id number] [place] [address]- 0002 Jun, [facility] [place] [facility] [address] [id number] [place] [address]- 2924 Jun, [facility] [place] [facility] [address] [id number] [place] [address]- 6464 Jun, [facility] [place] [facility] [address] [id number] [place] [address]- 4787 Jun, [facility] [place] [facility] [address] [id number] [place] [address]- 2147 Jun, [facility] [place] [facility] [address] [id number] [place] [address]- 7731 Jun, [facility] [place] [facility] [address] [id number] [place] [address]- 7620 Jun, [facility] [place] [facility] [address] [id number] [place] [address]- 6163 Jun, [facility] [place] [facility] [address] [id number] [place] [address]- 1643 26 May, 2012 [facility] [place] [facility] [address] [id number] [place] [address]- 2012 24 May, 2012 [facility] [place] [facility] [address] [id number] [place] [address]- 9367 18 May, 2012 [facility] [place] [facility] [address] [id number] [place] [address]- 3940 30 Apr, 2012 [facility] [place] [facility] [address] [id number] [place] [address]- 2432 Apr, [facility] [place] [facility] [address] [id number] [place] [address]- 9609 Apr, [facility] [place] [facility] [address] [id number] [place] [address]- 4972 14 Apr, 2012 [facility] [place] [facility] [address] [id number] [place] [address]- 8781 Apr, [facility] [place] [facility] [address] [id number] [place] [address]- 2606 Apr, [facility] [place] [facility] [address] [id number] [place] [address]- 2538 Mar, [facility] [place] [facility] [address] [id number] [place] [address]- 6550 Mar, [facility] [address] [id number] [place] [address]- 6570 Mar, [facility] [place] [facility] [address] [id number] [place] [address]- 7816 Mar, [facility] [place] [facility] [address] [id number] [place] [address]- 6897 Feb, [facility] [place] [facility] [address] [id number] [place] [address]- 4971 Feb, [facility] [place] [facility] [address] [id number] [place] [address]- 7080 Feb, [facility] [place] [facility] [address] [id number] [place] [address]- 0386 Feb, [facility] [address] [id number] [place] [address]- 2800 Feb, [facility] [place] [facility] [address] [id number] [place] [address]- 8123 January, [facility] [place] [facility] [address] [id number] [place] [address]- 9656 January, [facility] [place] [facility] [address] [id number] [place] [address]- 2940 January, [facility] [place] [facility] [address] [id number] [place] [address]- 7499 January, [facility] [place] [facility] [address] [id number] [place] [address]- 0112 January, [facility] [place] [facility] [address] [id number] [place] [address]- 3748 January, [facility] [place] [facility] [address] [id number] [place] [address]- 2254 Dec, [facility] [place] [facility] [address] [id number] [place] [address]- 8048 Dec, [facility] [place] [facility] [address] [id number] [place] [address]- 3674 17 Dec, 2011 [facility] [place] [facility] [address] [id number] [place] [address]- 3729 09 Dec, 2011 [facility] [place] [facility] [address] [id number] [place] [address]- 5996 06 Dec, 2011 [facility] [place] [facility] [address] [id number] [place] [address]- 2290 27 Nov, 2011 [facility] [place] [facility] [address] [id number] [place] [address]- 9265 14 Nov, 2011 [facility] [place] [facility] [address] [id number] [place] [address]- 4717 Nov, [facility] [place] [facility] [address] [facility] [id number] [place] [address]- 3150 07 Nov, 2011 [facility] [place] [facility] [address] [id number] [place] [address]- 9324 29 Oct, 2011 [facility] [place] [facility] [address] [id number] [place] [address]- 0870 28 Oct, 2011 [facility] [place] [facility] [address] [id number] [place] [address]- 7836 24 Oct, 2011 [facility] [place] [facility] [address] [id number] [place] [address]- 5546 13 Oct, 2011 [facility] [place] [facility] [address] [id number] [place] [address]- 9078 08 Oct, 2011 [facility] [place] [facility] [address] [id number] [place] [address]- 4543 Sep, [facility] [place] [facility] [address] [id number] [place] [address]- 9348 30 Sep, 2011 [facility] [place] [facility] [address] [id number] [place] [address]- 3450 Sep, [facility] [place] [facility] [address] [id number] [place] [address]- 4817 Sep, [facility] [place] [facility] [address] [id number] [place] [address]- 7271 Sep, [facility] [place] [facility] [address] [id number] [place] [address]- 4011 Sep, [facility] [place] [facility] [address] [id number] [place] [address]- 3561 Aug, [facility] [place] [facility] [address] [id number] [place] [address]- 2428 Aug, [facility] [place] [facility] [address] [id number] [place] [address]- 0326 Aug, [facility] [place] [facility] [address] [id number] [place] [address]- 9404 Jul, [facility] [place] [facility] [address] [id number] [place] [address]- 7245 Jul, [facility] [place] [facility] [address] [id number] [place] [address]- 6319 Jul, [facility] [place] [facility] [address] [id number] [place] [address]- 9152 Jul, [facility] [place] [facility] [address] [id number] [place] [address]- 3732 Jun, [facility] [place] [facility] [address] [id number] [place] [address]- 7605 Jun, [facility] [place] [facility] [address] [id number] [place] [address]- 8777 18 Jun, 2011 [facility] [place] [facility] [address] [id number] [place] [address]- 3934 Jun, [facility] [place] [facility] [address] [id number] [place] [address]- 2387 Jun, [facility] [place] [facility] [address] [id number] [place] [address]- 3032 Jun, [facility] [place] [facility] [address] [id number] [place] [address]- 7793 11 Mar, 2011 [facility] [address] [id number] [place] [address]- 0291 18 Dec, 2010 [facility] [place] [facility] [address] [id number] [place] [address]- 0716 11 Dec, 2010 [facility] [address] [id number] [place] [address]- 3466 18 Nov, 2010 [facility] [address] [id number] [place] [address] 2546 16 Nov, 2010 [facility] [address] [id number] [place] [address]- 7662 10 Sep, 2010 [facility] [address] [id number] [place] [address]- 2108 31 Aug, 2010 [facility] [address] [id number] [place] [address]- 8219 29 Aug, 2010 [facility] [address] [id number] [place] [address] 2548 29 Aug, 2010 [facility] [address] [id number] [place] [address] 2546 29 Aug, 2010 [facility] [address] [id number] [place] [address]- 4384 27 Aug, 2010 [facility] [address] [id number] [place] [address] 2546 14 Aug, 2010 [facility] [address] [id number] [place] [address] 2546 08 Aug, 2010 [facility] [place] [facility] [address] [id number] [place] [address] 2546 08 Aug, 2010 [facility] [place] [facility] [address] [id number] [place] [address]- 2546 07 Aug, 2010 [facility] [place] [facility] [address] [id number] [place] [address]- 4939 Aug, [facility] [place] [facility] [address] [id number] [place] [address] Aug, [facility] [place] [facility] [address] [id number] [place] [address] Aug, [facility] [place] [facility] [address] [id number] [place] [address] Jul, [facility] [place] [facility] [address] [id number] [place] [address] Jul, [facility] [place] [facility] [address] [id number] [place] [address] Jul, [facility] [place] [facility] [address] [id number] [place] [address] Jul, [facility] [place] [facility] [address] [id number] [place] [address] Jul, [facility] [place] [facility] [address] [id number] [place] [address] Jul, [facility] [place] [facility] [address] [id number] [place] [address] Jun, [facility] [place] [facility] [address] [id number] [place] [address] Jun, [facility] [place] [facility] [address] [id number] [place] [address] Jun, [facility] [place] [facility] [address] [id number] [place] [address] Jun, [facility] [place] [facility] [address] [id number] [place] [address] 16 Apr, 2010 [facility] [place] [facility] [address] [id number] [place] [address] Mar, [facility] [place] [facility] [address] [id number] [place] [address] Feb, [facility] [place] [facility] [address] [id number] [place] [address] 11 Jan, 2010 [facility] [place] [facility] [address] [id number] [place] [address] 15 Dec, 2009 [facility] [place] [facility] [address] [facility] [id number] [place] [address] Nov, [facility] [place] [facility] [address] [facility] [id number] [place] [address] Aug, [facility] [place] [facility] [address] [id number] [place] [address] Aug, [facility] [place] [facility] [address] [facility] [id number] [place] [address], [place] [address] Aug, [facility] [place] [facility] [address] [facility] [id number] [place] [address] Jul, [facility] [place] [facility] [address] [facility] [id number] [place] [address] Jul, [facility] [place] [facility] [address] [facility] [id number] [place] [address] Jul, [facility] [place] [facility] [address] [facility] [id number] [place] [address] 30 Jun, 2009 [facility] [place] [facility] [address] [facility] [id number] [place] [address] 29 Jun, 2009 [facility] [place] [facility] [address] [facility] [id number] [place] [address] Jun, [facility] [place] [facility] [address] [facility] [id number] [place] [address] Jun, [facility] [place] [facility] [address] [facility] [id number] [place] [address] Jun, [facility] [place] [facility] [address] [facility] [id number] [place] [address] Jun, [facility] [place] [facility] [address] [facility] [id number] [place] [address] Apr, [facility] [place] [facility] [address] [facility] [id number] [place] [address] Apr, [facility] [address] [facility] [id number] [place] [address] Feb, [facility] [address] [facility] [id number] [place] [address] January, [facility] [address] [facility] [id number] [place] [address] Dec, IMMUNIZATIONS No Known Immunizations SOCIAL HISTORY Never Assessed REASON FOR VISIT NEEDS REFERRAL FOR dm SHOES PLAN OF CARE VITAL SIGNS MEDICATIONS Unknown [...] obesity Medical History skin cancer-basal cell R pentecostalism (removed) Medical History Arthritis Medical History degenerative [...] tunnel release (Left) 2000 [facility] 2009 Surgical [facility] 2013 ([place]) Surgical History heart 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 04/2014 Surgical History carotid US 05/2014 Surgical History resection of skin cancer from Right pentecostalism Surgical History Biopsy of Lung Bilateral/Left lung lymph node 09/2016 Surgical History Bone Marrow Biopsy Surgical History port in the right chest wall 12/2016 Hospitalization History [facility] low potassium, low magnesium, chest painina 01/2015 Hospitalization History inability to urinate 09/16/15 Hospitalization History [facility] Hospitalization History hyperkalemia 10/2017 Hospitalization History fluid in lung
--- OUTSIDE RECORDS SUMMARY | 2018-08-08 13:23 | XMS REPORT ---
Author Author NOEMI WASHBURN Organization [facility] Address [address] [place] [address] Care Team Providers Care Commercial Counsel Name Role Phone NOEMI WASHBURN Unavailable PROBLEMS Type Condition ICD9-CM Code YZE23-PM Code Onset Dates Condition Status SNOMED Code Problem Chronic lymphocytic leukemia C91.10 Active 58025227 Problem Insomnia, unspecified type G47.00 Active 072906495 Problem Lymphocytosis D72.820 Active 82807013 Problem Anxiety F41.9 Active 51416555 Problem Eye exam abnormal R93.8 Active 695614770 Problem Morbid obesity E66.01 Active 044525235 Problem Diabetic polyneuropathy associated with type 2 diabetes mellitus E11.42 Active 39072581 Problem Essential hypertension I10 Active 67976165 Problem Falling R29.6 Active 340838257 Problem 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 Active 988616168 Problem Cough R05 Active 15788890 Problem Dysuria R30.0 Active 09475255 Problem Eustachian tube dysfunction, unspecified laterality H69.80 Active 05562413 Problem Bilateral primary osteoarthritis of knee M17.0 Active 929827554 Problem Polyneuropathy associated with underlying disease G63 Active 638358082 Problem Anemia of chronic illness D63.8 Active 199836721 Problem Retinal edema H35.81 Active 2146781 Problem DM neuro manif type II E11.49 Active 90242997 Problem Diabetes E11.9 Active 08536118 Problem Hypokalemia E87.6 Active 15075153 Problem Benign prostatic hyperplasia with lower urinary tract symptoms, unspecified morphology N40.1 Active 228848185 Problem Reactive airway disease J45.909 Active 120425500409 Problem Bipolar I disorder, most recent episode (or current) mixed, moderate F31.62 Active 61032311 Problem Chronic pain G89.29 Active 30321829 Problem Leukocytosis D72.829 Active 530149174 ALLERGIES No Information ENCOUNTERS Encounter Location Date Diagnosis [facility] [address] [address] Mar, [facility] [id number] [place] [address] 16131- 2666 Mar, [facility] [address] [address] Feb, [facility] [id number] [place] [address] 97457- 8820 January, [facility] [id number] [place] [address] 81944- 3195 January, Chronic pain G89.29 [facility] [id number] [place] [address] 35807- 2442 January, Bipolar I disorder, most recent episode (or current) mixed, moderate F31.62 [place] [id number] [place] [address] 63133- 8408 January, Bipolar I disorder, most recent episode (or current) mixed, moderate F31.62 [facility] [address] [address] Dec, Bipolar I disorder, most recent episode (or current) mixed, moderate F31.62 and BMI 50.0-59.9, adult Z68.43 [facility] [id number] [place] [address] 22352- 0344 Dec, Bipolar I disorder, most recent episode (or current) mixed, moderate F31.62 [facility] [id number] [place] [address] 56586- 9272 Dec, Chronic pain G89.29 [facility] [id number] [place] [address] 02634- 0713 Dec, DM neuro manif type II E11.49 ; Right flank pain R10.9 ; ct technologist 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 Z79.891 ; Encounter for medication monitoring Z51.81 and BMI 50.0-59.9, adult Z68.43 [facility] [address] [address] 2546 Dec, Bipolar I disorder, most recent episode (or current) mixed, moderate F31.62 [facility] [id number] [place] [address] 71912 2546 Nov, Bipolar I disorder, most recent episode (or current) mixed, moderate F31.62 [facility] [id number] [place] [address] 83523 2546 Nov, Chronic pain G89.29 [facility] [id number] [place] [address] 55667 2546 Nov, Bipolar I disorder, most recent episode (or current) mixed, moderate F31.62 [facility] [id number] [place] [address] 82258- 6226 Nov, Hypokalemia E87.6 [facility] [place] [id number] [place] [address] 98119 2542 Nov, Bipolar I disorder, most recent episode (or current) mixed, moderate F31.62 [facility] [id number] [place] [address] 54700- 1266 Oct, Chronic pain G89.29 [facility] [id number] [place] [address] 08830 2546 Oct, BMI 50.0-59.9, adult Z68.43 and Bipolar I disorder, most recent episode (or current) mixed, moderate F31.62 [facility] [id number] [place] [address] 65999- 5084 Oct, Bipolar I disorder, most recent episode (or current) mixed, moderate F31.62 [facility] [id number] [place] [address] 42788- 8356 Oct, [facility] [id number] [place] [address] 31055- 3756 Oct, Hypokalemia E87.6 [facility] [id number] [place] [address] 46572- 8294 Oct, DM neuro manif type II E11.49 [facility] [address] 60400- 0770 Oct, Bipolar I disorder, most recent episode (or current) mixed, moderate F31.62 [place] [address] 08806- 1754 Oct, Bipolar I disorder, most recent episode (or current) mixed, moderate F31.62 [place] [address] 06298- 5930 14 Oct, 2017 Hyperkalemia E87.5 ; Falling R29.6 ; BMI 50.0-59.9, adult Z68.43 and Acute left ankle pain M25.572 [place] [address] 94321- 1881 Oct, DM neuro manif type II E11.49 [place] [address] 32732- 8098 Oct, [place] [address] 68976- 0463 Sep, Chronic pain G89.29 [place] [address] 98146- 5339 Sep, [place] [address] 31168- 0128 Sep, Bilateral primary osteoarthritis of knee M17.0 [facility] [address] 20971- 4316 Sep, Generalized edema R60.1 [place] [address] 66008- 2314 Sep, Bipolar I disorder, most recent episode (or current) mixed, moderate F31.62 [facility] [id number] [place] [address] 27565- 8068 15 Sep, 2017 Hypoxia R09.02 ; Other hypervolemia E87.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 ; Anemia of chronic illness D63.8 and BMI 50.0- 59.9, adult Z68.43 [place] [address] 64976- 5248 Sep, [place] [address] 83960- 2505 Sep, Bipolar I disorder, most recent episode (or current) mixed, moderate F31.62 [facility] [id number] [place] [address] 13928- 9520 Aug, Chronic pain G89.29 [place] [address] 03895- 6593 Aug, Generalized edema R60.1 [facility] [place] [id number] [place] [address] 73894- 2857 Aug, [facility] [id number] [place] [address] 61568- 7889 Aug, [place] [id number] [place] [address] 67872- 5390 14 Aug, 2017 Bipolar I disorder, most recent episode (or current) mixed, moderate F31.62 [place] [id number] [place] [address] 12485- 5493 Aug, Bipolar I disorder, most recent episode (or current) mixed, moderate F31.62 [place] [id number] [place] [address] 08840- 4845 04 Aug, 2017 Chronic pain G89.29 [place] [id number] [place] [address] 03415- 7030 Jul, Bipolar I disorder, most recent episode (or current) mixed, moderate F31.62 [facility] [address] [address]- 7839 Jul, Bipolar I disorder, most recent episode (or current) mixed, moderate F31.62 and BMI 60.0-69.9, adult Z68.44 [facility] [id number] [place] [address] 22171- 4030 Jul, Bipolar I disorder, most recent episode (or current) mixed, moderate F31.62 [facility] [id number] [place] [address] 62856- 8756 Jul, Chronic pain G89.29 [facility] [id number] [place] [address] 719275- 9443 Jul, Bipolar I disorder, most recent episode (or current) mixed, moderate F31.62 [place] [id number] [place] [address] 25136- 3974 Jun, Polyneuropathy associated with underlying disease G63 and Diabetes E11.9 [facility] [id number] [place] [address] 64540- 7611 Jun, Bipolar I disorder, most recent episode (or current) mixed, moderate F31.62 [facility] [id number] [place] [address] 97559- 0374 Jun, Chronic pain G89.29 [facility] [id number] [place] [address] 70219- 8896 May, Bipolar I disorder, most recent episode (or current) mixed, moderate F31.62 [facility] [id number] [place] [address] 20874- 7897 May, Bipolar I disorder, most recent episode (or current) mixed, moderate F31.62 [facility] [id number] [place] [address] 07626- 4233 May, Diabetic polyneuropathy associated with type 2 diabetes mellitus E11.42 [facility] [id number] [place] [address] 66645- 6823 18 May, 2017 Bipolar I disorder, most recent episode (or current) mixed, moderate F31.62 [facility] [id number] [place] [address] 15453- 5535 13 May, 2017 Bipolar I disorder, most recent episode (or current) mixed, moderate F31.62 [place] [address] 92393- 0993 12 May, 2017 Chronic pain G89.29 [facility] [id number] [place] [address] 69200- 0085 30 Apr, 2017 Bipolar I disorder, most recent episode (or current) mixed, moderate F31.62 [place] [id number] [place] [address] 49974- 8690 Apr, [place] [address] 69670- 4686 Apr, Chronic pain G89.29 and DM neuro manif type II E11.49 [facility] [id number] [place] [address] 97857- 8455 Apr, [place] [id number] [place] [address] 77553- 3686 Apr, Bipolar I disorder, most recent episode (or current) mixed, moderate F31.62 [place] [id number] [place] [address] 72161- 9390 Apr, Chronic pain G89.29 [facility] [id number] [place] [address] 56451- 9804 Apr, Iliotibial band syndrome, left M76.32 [facility] [id number] [place] [address] 51815- 6336 Apr, Bipolar I disorder, most recent episode (or current) mixed, moderate F31.62 [place] [id number] [place] [address] 97386- 2394 Mar, Bipolar I disorder, most recent episode (or current) mixed, moderate F31.62 [facility] [id number] [place] [address] 97988- 4714 Mar, Bipolar I disorder, most recent episode (or current) mixed, moderate F31.62 [facility] [address] [address]- 5463 Mar, [facility] [id number] [place] [address] 75814- 0075 Mar, Bipolar I disorder, most recent episode (or current) mixed, moderate F31.62 [place] [id number] [place] [address] 77366- 3401 Mar, Chronic pain G89.29 [place] [id number] [place] [address] 17400- 1119 Mar, Bipolar I disorder, most recent episode (or current) mixed, moderate F31.62 [place] [id number] [place] [address] 62540- 9428 Mar, Bipolar I disorder, most recent episode (or current) mixed, moderate F31.62 [place] [address] [place] [address] 91522- 1271 Mar, Acute pain of left knee M25.562 ; Left hip pain M25.552 ; Generalized edema R60.1 and Tongue swelling R22.0 [place] [id number] [place] [address] 18183- 8526 Mar, [facility] [id number] [place] [address] 45258- 6134 Feb, Chronic pain G89.29 [place] [id number] [place] [address] 28178- 9016 Feb, Diabetes E11.9 [place] [id number] [place] [address] 59076- 1954 January, Chronic pain G89.29 [facility] [id number] [place] [address] 16264- 3775 January, [facility] [id number] [place] [address] 92792- 9872 January, Bipolar I disorder, most recent episode (or current) mixed, moderate F31.62 [facility] [id number] [place] [address] 86693- 0661 Dec, Bipolar I disorder, most recent episode (or current) mixed, moderate F31.62 [facility] [id number] [place] [address] 96959- 4908 Dec, Chronic pain G89.29 [facility] [id number] [place] [address] 82238- 4440 Dec, Bipolar I disorder, most recent episode (or current) mixed, moderate F31.62 [facility] [id number] [place] [address] 46367- 6688 Dec, Diabetes E11.9 ; Essential hypertension I10 ; Chronic pain G89.29 and Morbid obesity E66.01 [facility] [id number] [place] [address] 88155- 2776 Dec, [facility] [id number] [place] [address] 94611- 9628 Dec, Bipolar I disorder, most recent episode (or current) mixed, moderate F31.62 [facility] [id number] [place] [address] 07627- 7906 Dec, Bipolar I disorder, most recent episode (or current) mixed, moderate F31.62 [facility] [id number] [place] [address] 02882- 9625 Nov, Chronic pain G89.29 [facility] [id number] [place] [address] 95354- 8028 Nov, Bipolar I disorder, most recent episode (or current) mixed, moderate F31.62 [place] [address] [address]- 0717 Nov, [facility] [id number] [place] [address] 94066- 3210 Nov, Bipolar I disorder, most recent episode (or current) mixed, moderate F31.62 [facility] [id number] [place] [address] 23970- 0614 Nov, Bipolar I disorder, most recent episode (or current) mixed, moderate F31.62 [facility] [id number] [place] [address] 62757- 1283 Nov, [facility] [id number] [place] [address] 70825- 2681 Nov, [facility] [id number] [place] [address] 57006- 0189 Nov, [facility] [id number] [place] [address] 78506- 8845 Oct, Chronic pain G89.29 [facility] [id number] [place] [address] 49679- 4347 Oct, Bipolar I disorder, most recent episode (or current) mixed, moderate F31.62 [facility] [address] [address]- 7496 Oct, [facility] [id number] [place] [address] 45301- 8426 Oct, Chronic pain G89.29 ; Diabetes E11.9 ; Anxiety F41.9 and 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 [facility] [id number] [place] [address] 97019- 1609 10 Oct, 2016 [facility] [id number] [place] [address] 38436- 5080 06 Oct, 2016 Diabetes E11.9 [facility] [id number] [place] [address] 46594- 7158 Oct, Bipolar I disorder, most recent episode (or current) mixed, moderate F31.62 [facility] [id number] [place] [address] 45454- 0410 Sep, Chronic pain G89.29 [facility] [id number] [place] [address] 81453- 3666 Sep, Chronic pain G89.29 [facility] [id number] [place] [address] 49102- 8226 Aug, Chronic pain G89.29 [facility] [id number] [place] [address] 15581- 7436 Jul, [facility] [id number] [place] [address] 68688- 7121 Jul, Diabetes E11.9 [facility] [id number] [place] [address] 52197- 9197 Jul, Chronic pain G89.29 [facility] [id number] [place] [address] 98958- 0004 Jul, Bipolar I disorder, most recent episode (or current) mixed, moderate F31.62 [facility] [id number] [place] [address] 75877- 0420 Jun, Bipolar I disorder, most recent episode (or current) mixed, moderate F31.62 [facility] [id number] [place] [address] 99025- 1396 Jun, [facility] [id number] [place] [address] 87634- 6025 Jun, Bipolar I disorder, most recent episode (or current) mixed, moderate F31.62 [facility] [id number] [place] [address] 78668- 0255 May, Insomnia, unspecified type G47.00 [facility] [id number] [place] [address] 08580- 0322 22 May, 2016 Bipolar I disorder, most recent episode (or current) mixed, moderate F31.62 [facility] [id number] [place] [address] 71695- 5536 14 May, 2016 [facility] [id number] [place] [address] 96667- 8077 08 May, 2016 Bipolar I disorder, most recent episode (or current) mixed, moderate F31.62 [place] [id number] [place] [address] 48052- 9335 May, Diabetes E11.9 and Essential hypertension I10 [place] [id number] [place] [address] 48960- 7857 Apr, Chronic pain G89.29 [place] [id number] [place] [address] 19028- 7879 Apr, Bipolar I disorder, most recent episode (or current) mixed, moderate F31.62 [place] [id number] [place] [address] 38047- 1124 Apr, [place] [id number] [place] [address] 52404- 1110 Apr, [place] [id number] [place] [address] 01888- 4037 Mar, Chronic pain G89.29 ; Headache, unspecified headache type R51 ; Neuropathy G62.9 ; Pain of right hip joint M25.551 and Essential hypertension I10 [facility] [id number] [place] [address] 14285- 1152 Mar, Chronic pain G89.29 [facility] [id number] [place] [address] 64065- 6469 Mar, Bipolar I disorder, most recent episode (or current) mixed, moderate F31.62 [facility] [id number] [place] [address] 68687- 3878 Feb, Bipolar I disorder, most recent episode (or current) mixed, moderate F31.62 and Insomnia, unspecified type G47.00 [facility] [id number] [place] [address] 51783- 5417 Feb, Chronic pain G89.29 [facility] [id number] [place] [address] 78203- 6653 Feb, Bipolar I disorder, most recent episode (or current) mixed, moderate F31.62 [facility] [id number] [place] [address] 76800- 1624 January, Bipolar I disorder, most recent episode (or current) mixed, moderate F31.62 [facility] [id number] [place] [address] 15462- 5374 January, Chronic pain G89.29 [facility] [id number] [place] [address] 98401- 1850 January, Chronic pain G89.29 and Essential hypertension I10 [facility] [id number] [place] [address] 98031- 0280 January, Bipolar I disorder, most recent episode (or current) mixed, moderate F31.62 [facility] [id number] [place] [address] 07314- 6622 Dec, [facility] [id number] [place] [address] 53022- 8863 Dec, [facility] [id number] [place] [address] [phone] Dec, [facility] [id number] [place] [address] [phone]- [phone] Dec, [facility] [id number] [place] [address] [phone]- 6426 Nov, Reactive airway disease J45.909 [facility] [id number] [place] [address] [phone] Nov, [facility] [id number] [place] [address] 78[address] Nov, [facility] [id number] [place] [address] [phone] Nov, [facility] [id number] [place] [address] [phone]- 8055 Nov, [facility] [id number] [place] [address] 20548- 5786 Nov, Onychomycosis B35.1 ; Hammertoe M20.40 ; [place] or callus L84 and DM neuro manif type II E11.49 [facility] [id number] [place] [address] [phone]- [phone] Nov, Chronic pain G89.29 ; Leukocytosis D72.829 and Diabetes E11.9 [facility] [id number] [place] [address] 74849- 5365 Nov, [facility] [id number] [place] [address] [phone]- 3810 Oct, Bronchitis J40 [facility] [id number] [place] [address] [phone]- [phone] Oct, [facility] [id number] [place] [address] [phone]- [phone] Oct, [facility] [id number] [place] [address] [phone]- 6101 Oct, Mastoiditis, unspecified laterality H70.90 and Type 2 diabetes mellitus with complication E11.8 [facility] [id number] [place] [address] [phone]- [phone] Sep, [facility] [id number] [place] [address] [phone]- 8480 Sep, Dysuria R30.0 ; Cough R05 ; Benign prostatic hyperplasia with lower urinary tract symptoms, unspecified morphology N40.1 ; Hypokalemia E87.6 and Eustachian tube dysfunction, unspecified laterality H69.80 [facility] [id number] [place] [address] 36849- 6955 Sep, Moderate mixed bipolar I disorder F31.62 [facility] [id number] [place] [address] 61358- 1965 Sep, Hypokalemia E87.6 [facility] [id number] [place] [address] 48983- 9993 Sep, [facility] [id number] [place] [address] 23021- 2086 Sep, Upper respiratory tract infection, unspecified type J06.9 [facility] [address] 49039- 9022 Aug, [facility] [id number] [place] [address] 33692- 6440 Aug, Dysuria R30.0 [facility] [id number] [place] [address] 76888- 3254 Aug, [facility] [id number] [place] [address] 38728- 3230 Jul, [facility] [id number] [place] [address] 94061- 4969 Jul, [facility] [id number] [place] [address] 34569- 9064 Jul, [facility] [id number] [place] [address] 03416- 2716 Jul, [facility] [id number] [place] [address] 72272- 0166 Jun, [facility] [id number] [place] [address] 46565- 6843 Jun, [facility] [id number] [place] [address] 58161- 7933 Jun, [facility] [id number] [address] 4942 May, [facility] [id number] [place] [address] 52822- 6089 May, Bipolar I disorder, most recent episode (or current) mixed, moderate 296.62 [facility] [id number] [place] [address] 62141- 3538 May, [facility] [id number] [place] [address] 85357- 1474 May, Bipolar I disorder, most recent episode (or current) mixed, moderate 296.62 and Major depressive disorder, recurrent episode, severe, specified as with psychotic behavior 296.34 [facility] [id number] [place] [address] 26977- 7286 May, Bipolar I disorder, most recent episode (or current) mixed, moderate 296.62 [facility] [id number] [place] [address] 74149- 8195 May, [facility] [id number] [place] [address] 61328- 6723 Apr, [facility] [id number] [place] [address] 36426- 6957 Apr, [facility] [id number] [place] [address] 79257- 5435 Apr, Unspecified disorder of kidney and ureter 593.9 and Diabetes mellitus type 2, uncontrolled 250.02 [facility] [address] [address] 8816 Apr, [facility] [id number] [place] [address] 44258- 9657 Apr, [facility] [id number] [place] [address] 06754- 6683 Apr, [facility] [address] [address]- 3967 Apr, [facility] [id number] [place] [address] 27420- 5505 Apr, Diabetes mellitus type II, uncontrolled 250.02 [facility] [id number] [place] [address] 18045- 9707 Apr, [facility] [id number] [place] [address] 26745- 1525 Mar, [facility] [address] 31298- 8110 Mar, [facility] [id number] [place] [address] 95475- 5342 Mar, [facility] [id number] [place] [address] 64334- 7797 Mar, Major depressive disorder, recurrent episode, severe, specified as with psychotic behavior 296.34 and Bipolar I disorder, most recent episode (or current) mixed, moderate 296.62 [facility] [id number] [place] [address] 19188- 1121 Mar, Diabetes 250.00 ; Anuria 788.5 ; Nausea and vomiting 787.01 and Diarrhea 787.91 [facility] [id number] [place] [address] 80264- 2138 Mar, Diabetes 250.00 [facility] [id number] [place] [address] 73453- 3619 Mar, [facility] [id number] [place] [address] 79229- 4021 Mar, Diabetes 250.00 [facility] [id number] [place] [address] 17939- 8034 Mar, [facility] [id number] [place] [address] 54112- 9175 Mar, [facility] [id number] [place] [address] 31885- 6246 Mar, [facility] [id number] [place] [address] 05544- 1851 Mar, [place] [id number] [place] [address] 05748- 7756 Mar, Bipolar I disorder, most recent episode (or current) mixed, moderate 296.62 and Major depressive disorder, recurrent episode, severe, specified as with psychotic behavior 296.34 [facility] [id number] [place] [address] 49047- 6559 Mar, Magnesium deficiency 275.2 ; Hypokalemia 276.8 ; Nausea & vomiting 787.01 and Diabetes mellitus type 2, uncontrolled 250.02 [place] [facility] [id number] [place] [address] 68726- 4670 Feb, [place] [facility] [id number] [place] [address] 13180- 2149 Feb, Bipolar I disorder, most recent episode (or current) mixed, moderate 296.62 [place] [facility] [address] 71593- 7839 Feb, Nausea and vomiting 787.01 ; Left elbow pain 719.42 ; Anuria 788.5 and Diabetes 250.00 [place] [facility] [id number] [place] [address] 19741- 6649 Feb, [place] [id number] [place] [address] 99753- 2079 Feb, Hypopotassemia 276.8 and Hypokalemia 276.8 [place] [facility] [id number] [place] [address] 83519- 1344 Feb, Hypopotassemia 276.8 and Hypokalemia 276.8 [id number] [place] [address] 03173- 1619 Feb, Seborrheic keratoses 702.19 [place] [id number] [place] [address] 19219- 7398 Feb, Hypopotassemia 276.8 and Low magnesium levels 275.2 [facility] [address] [address]- 6417 January, [facility] [id number] [place] [address] 12708- 5052 January, [facility] [id number] [address]- 8922 January, [facility] [id number] [place] [address] 40262- 6470 January, Scalp lesion 709.9 [facility] [id number] [place] [address] 21612- 7106 January, [facility] [id number] [place] [address] 30755- 6106 Dec, Tear of medial cartilage or meniscus of knee, current 836.0 and 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 [facility] [id number] [place] [address] 47779- 2935 Dec, [facility] [address] [address]- 9617 Dec, [facility] [id number] [place] [address] 64947- 0093 Dec, Squamous cell carcinoma, 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 [facility] [address] [address]- 0081 Dec, [facility] [address] [address]- 9458 Dec, [facility] [address] [address]- 7560 Nov, [facility] [address] [address]- 9941 Nov, [facility] [address] [address]- 2956 Nov, [facility] [id number] [place] [address], [place] [address]- 2703 Nov, 2014 [facility] [place] [facility] [address] [id number] [place] [address]- 1106 Nov, 2014 [facility] [place] [facility] [address] [facility] [id number] [place] [address]- 2457 Nov, 2014 [facility] [place] [facility] [address] [facility] [id number] [place] [address]- 1769 Nov, 2014 [facility] [place] [facility] [address] [facility] [id number] [place] [address]- 1136 Nov, 2014 [facility] [place] [facility] [address] [id number] [place] [address]- 8106 Nov, 2014 [facility] [place] [facility] [address] [facility] [id number] [place] [address]- 2378 Nov, 2014 [facility] [place] [facility] [address] [facility] [id number] [place] [address]- 1633 Nov, 2014 [facility] [place] [facility] [address] [facility] [id number] [place] [address]- 0581 Nov, [facility] [place] [facility] [address] [facility] [id number] [place] [address]- 6713 Oct, 2014 [facility] [place] [facility] [address] [facility] [id number] [place] [address]- 5477 Oct, 2014 [facility] [place] [facility] [address] [facility] [id number] [place] [address]- 7450 Oct, 2014 [facility] [place] [facility] [address] [facility] [id number] [address]- 7356 Oct, 2014 [facility] [place] [facility] [address] [facility] [id number] [place] [address]- 9709 Oct, 2014 [facility] [place] [facility] [address] [facility] [id number] [place] [address]- 4622 Oct, 2014 [facility] [place] [facility] [address] [facility] [id number] [place] [address]- 5640 Oct, [facility] [place] [facility] [address] [id number] [place] [address]- 6259 Oct, [facility] [place] [facility] [address] [id number] [place] [address]- 1781 Oct, [facility] [place] [facility] [address] [id number] [place] [address]- 1837 Sep, [facility] [place] [facility] [address] [id number] [place] [address]- 0903 Sep, [facility] [place] [facility] [address] [id number] [place] [address]- 3393 Sep, [facility] [place] [facility] [address] [id number] [place] [address]- 5999 Sep, [facility] [place] [facility] [address] [id number] [place] [address]- 1155 Sep, [facility] [place] [facility] [address] [id number] [place] [address]- 7511 Sep, [facility] [place] [facility] [address] [id number] [place] [address]- 8683 Sep, [facility] [place] [facility] [address] [id number] [place] [address]- 8455 Sep, [facility] [place] [facility] [address] [id number] [address]- 0023 Sep, [facility] [place] [facility] [address] [id number] [address]- 0510 Sep, [facility] [place] [facility] [address] [id number] [place] [address]- 0014 Sep, [facility] [place] [facility] [address] [id number] [address]- 2118 Sep, [facility] [place] [facility] [address] [id number] [place] [address]- 1367 Sep, [facility] [place] [facility] [address] [id number] [place] [address]- 8586 Sep, [facility] [address] [id number] [place] [address]- 0090 Sep, [facility] [address] [id number] [place] [address]- 4029 Sep, [facility] [address] [id number] [place] [address]- 4442 Aug, [facility] [address] [id number] [place] [address]- 5060 Aug, [facility] [address] [id number] [place] [address]- 1233 Aug, [facility] [address] [id number] [place] [address]- 3731 Aug, [facility] [address] [id number] [place] [address]- 0709 Aug, [facility] [address] [id number] [place] [address]- 5400 Aug, [facility] [address] [id number] [place] [address]- 6246 Aug, [facility] [address] [id number] [place] [address]- 2986 Aug, [facility] [address] [id number] [place] [address]- 4777 Aug, [facility] [address] [id number] [place] [address]- 4187 Aug, [facility] [address] [id number] [place] [address]- 4625 Aug, [facility] [address] [place] [id number] 10 Aug, 2014 [facility] [address] [id number] [place] [address]- 5730 Aug, [facility] [address] [id number] [place] [address]- 7503 10 Aug, 2014 [facility] [place] [facility] [address] [id number] [place] [address]- 1021 Aug, [facility] [place] [facility] [address] [id number] [place] [address]- 5982 Aug, [facility] [place] [facility] [address] [id number] [place] [address]- 4773 Aug, [facility] [place] [facility] [address] [id number] [place] [address]- 0666 Aug, [facility] [place] [facility] [address] [id number] [place] [address]- 9306 Aug, [facility] [place] [facility] [address] [id number] [place] [address]- 1595 Aug, [facility] [place] [facility] [address] [id number] [place] [address]- 1010 Aug, [facility] [place] [facility] [address] [id number] [place] [address]- 6030 Aug, [facility] [place] [facility] [address] [id number] [place] [address]- 4557 Aug, [facility] [place] [facility] [address] [id number] [place] [address]- 3576 Aug, [facility] [place] [facility] [address] [id number] [place] [address]- 4539 Aug, [facility] [place] [facility] [address] [id number] [place] [address]- 2022 Aug, [facility] [place] [facility] [address] [id number] [place] [address]- 9612 Aug, [facility] [place] [facility] [address] [id number] [place] [address]- 1336 Aug, [facility] [place] [facility] [address] [id number] [place] [address]- 0384 Aug, [facility] [place] [facility] [address] [id number] [place] [address]- 8879 Aug, [facility] [place] [facility] [address] [id number] [place] [address]- 5124 Jul, [facility] [place] [facility] [address] [id number] [place] [address]- 0695 Jul, [facility] [place] [facility] [address] [id number] [place] [address]- 0103 Jul, [facility] [place] [facility] [address] [id number] [place] [address]- 4558 Jul, [facility] [place] [facility] [address] [id number] [place] [address]- 6638 Jul, [facility] [place] [facility] [address] [id number] [place] [address]- 7614 Jul, [facility] [place] [facility] [address] [id number] [place] [address]- 2237 Jul, [facility] [place] [facility] [address] [id number] [place] [address]- 3052 Jul, [facility] [place] [facility] [address] [id number] [address]- 8325 Jul, [facility] [place] [facility] [address] [id number] [address]- 1482 Jul, [facility] [place] [facility] [address] [id number] [place] [address]- 8912 Jun, [facility] [place] [facility] [address] [id number] [place] [address]- 8141 Jun, [facility] [place] [facility] [address] [id number] [place] [address]- 5221 Jun, [facility] [place] [facility] [address] [id number] [place] [address]- 3271 Jun, [facility] [place] [facility] [address] [id number] [address]- 5563 15 Jun, 2014 [facility] [place] [facility] [address] [id number] [place] [address]- 0388 15 Jun, 2014 [facility] [place] [facility] [address] [id number] [address]- 4631 Jun, [facility] [place] [facility] [address] [facility] [id number] [place] [address]- 2932 Jun, [facility] [place] [facility] [address] [id number] [place] [address]- 4335 Jun, [facility] [place] [facility] [address] [id number] [place] [address]- 5391 Jun, [facility] [place] [facility] [address] [id number] [place] [address]- 9355 29 May, 2013 [facility] [place] [facility] [address] [id number] [address]- 3851 29 May, 2013 [facility] [place] [facility] [address] [id number] [place] [address]- 9034 26 May, 2013 [facility] [place] [facility] [address] [id number] [place] [address]- 6025 26 May, 2013 [facility] [place] [facility] [address] [facility] [id number] [place] [address]- 8282 17 May, 2013 [facility] [place] [facility] [address] [id number] [place] [address]- 0732 17 May, 2013 [facility] [place] [facility] [address] [id number] [place] [address]- 2544 15 Sep, 2013 [facility] [place] [facility] [address] [id number] [place] [address]- 1388 15 May, 2013 [facility] [place] [facility] [address] [facility] [id number] [place] [address]- 2549 15 May, 2013 [facility] [place] [facility] [address] [facility] [id number] [place] [address]- 8858 15 May, 2013 [facility] [place] [facility] [address] [id number] [place] [address]- 0636 10 May, 2013 [facility] [place] [facility] [address] [id number] [place] [address]- 3866 May, 2013 [facility] [place] [facility] [address] [id number] [place] [address] 2546 May, 2013 [facility] [place] [facility] [address] [id number] [place] [address] 2546 May, 2013 [facility] [place] [facility] [address] [id number] [place] [address] 2543 May, 2013 [facility] [place] [facility] [address] [id number] [place] [address]- 1798 May, 2013 [facility] [place] [facility] [address] [id number] [place] [address]- 1921 Apr, [facility] [place] [facility] [address] [id number] [place] [address]- 7287 Apr, [facility] [place] [facility] [address] [id number] [place] [address]- 7872 Apr, [facility] [place] [facility] [address] [id number] [place] [address]- 5966 Apr, [facility] [place] [facility] [address] [id number] [place] [address]- 4118 Apr, [facility] [place] [facility] [address] [id number] [place] [address]- 5383 Apr, [facility] [place] [facility] [address] [id number] [place] [address]- 2549 Apr, [facility] [place] [facility] [address] [id number] [place] [address]- 254 Apr, [facility] [place] [facility] [address] [id number] [place] [address]- 254 Apr, [facility] [place] [facility] [address] [id number] [place] [address] Apr, [facility] [place] [facility] [address] [id number] [place] [address] Apr, [facility] [place] [facility] [address] [id number] [place] [address] Apr, [facility] [place] [facility] [address] [id number] [place] [address] Apr, [facility] [place] [facility] [address] [id number] [place] [address] Apr, [facility] [place] [facility] [address] [id number] [place] [address] Apr, [facility] [place] [facility] [address] [id number] [place] [address] Mar, [facility] [place] [facility] [address] [id number] [place] [address] Mar, [facility] [place] [facility] [address] [id number] [place] [address] Mar, [facility] [place] [facility] [address] [id number] [place] [address] Mar, [facility] [place] [facility] [address] [id number] [place] [address] Mar, [facility] [place] [facility] [address] [id number] [place] [address] Mar, [facility] [place] [facility] [address] [id number] [place] [address] Mar, [facility] [place] [facility] [address] [id number] [place] [address] Mar, [facility] [place] [facility] [address] [id number] [place] [address] 138[address] Mar, [facility] [place] [facility] [address] [id number] [place] [address]255 Mar, [facility] [place] [facility] [address] [id number] [place] [address] Mar, 2013 [facility] [place] [facility] [address] [id number] [place] [address] Mar, 2013 [facility] [place] [facility] [address] [id number] [place] [address] Mar, 2013 [facility] [place] [facility] [address] [id number] [place] [address]- [address]188 Mar, 2013 [facility] [place] [facility] [address] [id number] [place] [address]268 Mar, 2013 [facility] [place] [facility] [address] [id number] [place] [address] Mar, 2013 [facility] [place] [facility] [address] [id number] [place] [address] Mar, 2013 [facility] [place] [facility] [address] [id number] [place] [address] 1829 Mar, 2013 [facility] [place] [facility] [address] [id number] [place] [address] Feb, [facility] [place] [facility] [address] [id number] [place] [address] Feb, [facility] [place] [facility] [address] [id number] [place] [address]16 Feb, [facility] [place] [facility] [address] [id number] [place] [address] Feb, [facility] [place] [facility] [address] [id number] [place] [address] Feb, [facility] [place] [facility] [address] [id number] [place] [address]- [address] Feb, [facility] [place] [facility] [address] [id number] [place] [address] Feb, [facility] [place] [facility] [address] [id number] [place] [address] 1436 Feb, [facility] [place] [facility] [address] [id number] [place] [address] 1712 Feb, [facility] [place] [facility] [address] [id number] [place] [address] Feb, [facility] [place] [facility] [address] [id number] [place] [address] Feb, [facility] [place] [facility] [address] [id number] [place] [address]21 Feb, [facility] [place] [facility] [address] [id number] [place] [address] Feb, [facility] [place] [facility] [address] [id number] [place] [address] 8549 Feb, [facility] [place] [facility] [address] [id number] [place] [address] January, [facility] [place] [facility] [address] [id number] [place] [address] January, [facility] [place] [facility] [address] [id number] [place] [address] January, [facility] [place] [facility] [address] [id number] [place] [address]- [address] January, [facility] [place] [facility] [address] [id number] [place] [address] January, [facility] [place] [facility] [address] [id number] [place] [address] January, [facility] [place] [facility] [address] [id number] [place] [address] 139[address] January, [facility] [place] [facility] [address] [id number] [place] [address] January, [facility] [place] [facility] [address] [id number] [place] [address] January, [facility] [place] [facility] [address] [id number] [place] [address] 49[address] January, [facility] [place] [facility] [address] [id number] [place] [address]- 2005 January, [facility] [place] [facility] [address] [id number] [place] [address]- 4935 January, [facility] [place] [facility] [address] [id number] [place] [address]- [address] January, [facility] [place] [facility] [address] [id number] [place] [address]- [address] January, [facility] [place] [facility] [address] [id number] [place] [address]- [address] Dec, [facility] [place] [facility] [address] [id number] [place] [address]- 45[address] Dec, [facility] [place] [facility] [address] [id number] [place] [address]- 8616 Dec, [facility] [place] [facility] [address] [id number] [place] [address]- 1695 Dec, [facility] [place] [facility] [address] [id number] [place] [address]- 9418 Dec, [facility] [place] [facility] [address] [id number] [place] [address]- 3417 Dec, [facility] [place] [facility] [address] [id number] [place] [address]- [address] Dec, [facility] [place] [facility] [address] [id number] [place] [address]- 288[address] Dec, [facility] [place] [facility] [address] [id number] [place] [address]- 7424 Dec, [facility] [place] [facility] [address] [id number] [place] [address]- 0966 Dec, [facility] [place] [facility] [address] [id number] [place] [address]- 9529 Nov, [facility] [place] [facility] [address] [id number] [place] [address]- [address] Nov, [facility] [place] [facility] [address] [id number] [place] [address] Nov, [facility] [place] [facility] [address] [id number] [place] [address] Nov, [facility] [place] [facility] [address] [id number] [place] [address] 4394 Nov, [facility] [place] [facility] [address] [id number] [place] [address] 1391 Nov, [facility] [place] [facility] [address] [id number] [place] [address] 6[address] Nov, [facility] [place] [facility] [address] [id number] [place] [address] 7246 Nov, [facility] [place] [facility] [address] [id number] [place] [address] 4709 Nov, [facility] [place] [facility] [address] [id number] [place] [address] 6[address] Nov, [facility] [place] [facility] [address] [id number] [place] [address] 2994 Oct, [facility] [place] [facility] [address] [id number] [place] [address] 50[address] Oct, [facility] [place] [facility] [address] [id number] [place] [address] 9328 Oct, [facility] [place] [facility] [address] [id number] [place] [address] 8043 Oct, [facility] [place] [facility] [address] [id number] [place] [address]- 9545 Oct, [facility] [place] [facility] [address] [id number] [place] [address] 8845 Oct, [facility] [place] [facility] [address] [id number] [place] [address]- 3686 14 Oct, 2013 [facility] [place] [facility] [address] [id number] [place] [address]- 7438 Oct, [facility] [place] [facility] [address] [id number] [place] [address] Oct, [facility] [place] [facility] [address] [id number] [place] [address]- 2430 Oct, [facility] [place] [facility] [address] [id number] [place] [address]- 4028 Oct, [facility] [place] [facility] [address] [id number] [place] [address]- 4907 Oct, [facility] [place] [facility] [address] [id number] [place] [address]- 3530 Oct, [facility] [place] [facility] [address] [id number] [place] [address]- 8996 Oct, [facility] [place] [facility] [address] [id number] [place] [address]- 0488 Sep, [facility] [place] [facility] [address] [id number] [place] [address] 1909 Sep, [facility] [place] [facility] [address] [facility] [id number] [place] [address]- 7163 Sep, [facility] [place] [facility] [address] [id number] [place] [address]- 5542 Sep, [facility] [place] [facility] [address] [id number] [place] [address] 8978 Sep, [facility] [place] [facility] [address] [id number] [place] [address]- 4292 Sep, [facility] [place] [facility] [address] [id number] [place] [address]- 4818 Sep, [facility] [place] [facility] [address] [id number] [place] [address]- 1765 Sep, [facility] [place] [facility] [address] [id number] [place] [address]- 6953 Sep, [facility] [place] [facility] [address] [id number] [place] [address]- 0559 Sep, [facility] [place] [facility] [address] [id number] [place] [address]- 9910 Aug, [facility] [place] [facility] [address] [id number] [place] [address]- 9835 Aug, [facility] [place] [facility] [address] [id number] [place] [address]- 4299 Jul, [facility] [place] [facility] [address] [id number] [place] [address]- 9084 Jul, [facility] [place] [facility] [address] [id number] [place] [address]- 6244 Jul, [facility] [place] [facility] [address] [id number] [place] [address]- 7778 Jul, [facility] [place] [facility] [address] [id number] [place] [address]- 8878 Jul, [facility] [place] [facility] [address] [id number] [place] [address]- 6565 Jul, [facility] [place] [facility] [address] [id number] [place] [address]- 3106 Jul, [facility] [place] [facility] [address] [id number] [place] [address]- 4489 Jul, [facility] [place] [facility] [address] [id number] [place] [address]- 3561 Jul, [facility] [place] [facility] [address] [id number] [place] [address]- 1143 Jul, [facility] [place] [facility] [address] [id number] [place] [address]- 7162 Jul, [facility] [place] [facility] [address] [id number] [place] [address] Jul, [facility] [place] [facility] [address] [id number] [place] [address]- 0362 Jul, 2012 [facility] [place] [facility] [address] [id number] [place] [address]- 7686 Jul, [facility] [place] [facility] [address] [id number] [place] [address]- 1441 Jul, 2012 [facility] [place] [facility] [address] [id number] [place] [address] 66[address] Jul, [facility] [place] [facility] [address] [id number] [place] [address]- 7431 Jul, [facility] [place] [facility] [address] [id number] [place] [address]- 6542 Jul, [facility] [place] [facility] [address] [id number] [place] [address]- 3794 Jul, [facility] [place] [facility] [address] [id number] [place] [address]- 6714 16 Jun, 2012 [facility] [place] [facility] [address] [id number] [place] [address]- 7189 16 Jun, 2012 [facility] [place] [facility] [address] [id number] [place] [address]- 2822 16 Jun, 2012 [facility] [place] [facility] [address] [id number] [place] [address]- 0073 16 Jun, 2012 [facility] [place] [facility] [address] [id number] [place] [address]- 5594 16 Jun, 2012 [facility] [place] [facility] [address] [id number] [place] [address]- 6808 16 Jun, 2012 [facility] [place] [facility] [address] [id number] [place] [address]- 8242 10 Jun, 2012 [facility] [place] [facility] [address] [id number] [place] [address]- 5424 10 Jun, 2012 [facility] [place] [facility] [address] [id number] [place] [address]- 7708 Jun, [facility] [address] [id number] [place] [address]- 6432 Jun, [facility] [place] [facility] [address] [id number] [place] [address]- 6802 Jun, [facility] [address] [id number] [place] [address]- 8024 May, 2012 [facility] [place] [facility] [address] [id number] [place] [address]- 4736 25 May, 2013 [facility] [address] [id number] [place] [address]- 5622 May, [facility] [address] [id number] [place] [address]- 9294 17 May, 2013 [facility] [address] [id number] [place] [address]- 0705 May, [facility] [address] [id number] [place] [address]- 4388 May, [facility] [place] [facility] [address] [id number] [place] [address]- 5616 May, [facility] [address] [id number] [place] [address]- 2141 05 May, 2013 [facility] [place] [facility] [address] [id number] [place] [address]- 5406 Apr, [facility] [place] [facility] [address] [id number] [place] [address]- 8196 Apr, [facility] [place] [facility] [address] [id number] [place] [address]- 5485 Apr, [facility] [place] [facility] [address] [id number] [place] [address]- 0529 Apr, [facility] [place] [facility] [address] [id number] [place] [address]- 5196 Apr, [facility] [place] [facility] [address] [id number] [place] [address]- 1434 Mar, [facility] [place] [facility] [address] [id number] [place] [address]- 6451 Mar, [facility] [place] [facility] [address] [id number] [place] [address]- 6275 Mar, [facility] [place] [facility] [address] [id number] [place] [address]- 1753 Mar, [facility] [address] [id number] [place] [address]- 0986 Mar, [facility] [place] [facility] [address] [id number] [place] [address]- 8940 Mar, [facility] [address] [id number] [place] [address]- 0036 Mar, [facility] [address] [id number] [place] [address]- 6962 Mar, [facility] [place] [facility] [address] [id number] [place] [address]- 7563 Feb, [facility] [place] [facility] [address] [id number] [place] [address]- 4751 Feb, [facility] [place] [facility] [address] [id number] [place] [address]- 6998 January, [facility] [place] [facility] [address] [id number] [place] [address]- 8670 January, [facility] [place] [facility] [address] [id number] [place] [address]- 3753 Dec, [facility] [place] [facility] [address] [id number] [place] [address]- 2515 Dec, [facility] [place] [facility] [address] [id number] [place] [address]- 0623 Nov, [facility] [place] [facility] [address] [id number] [place] [address]- 2203 Nov, [facility] [address] [id number] [place] [address] 2541 Nov, [facility] [place] [facility] [address] [id number] [place] [address] 2541 Nov, [facility] [address] [id number] [place] [address]- 5396 Oct, [facility] [place] [facility] [address] [id number] [place] [address]- 0998 Oct, [facility] [place] [facility] [address] [id number] [place] [address]- 6457 Oct, [facility] [place] [facility] [address] [id number] [place] [address]- 1475 26 Oct, 2012 [facility] [address] [id number] [place] [address]- 6890 16 Oct, 2012 [facility] [address] [id number] [place] [address]- 5325 14 Oct, 2012 [facility] [address] [id number] [place] [address]- 4201 08 Oct, 2012 [facility] [address] [id number] [place] [address]- 2220 07 Oct, 2012 [facility] [place] [facility] [address] [id number] [place] [address] 2542 03 Oct, 2012 [facility] [place] [facility] [address] [id number] [place] [address] 2540 Sep, [facility] [place] [facility] [address] [id number] [place] [address]- 1354 Sep, [facility] [place] [facility] [address] [id number] [place] [address]- 2545 Sep, [facility] [place] [facility] [address] [id number] [place] [address]- 3203 Sep, [facility] [address] [id number] [place] [address]- 0133 17 Sep, 2012 [facility] [place] [facility] [address] [id number] [place] [address]- 9285 Sep, [facility] [place] [facility] [address] [id number] [place] [address]- 8579 Sep, [facility] [place] [facility] [address] [id number] [place] [address]- 0760 Sep, [facility] [place] [facility] [address] [id number] [place] [address]- 5731 Aug, [facility] [place] [facility] [address] [id number] [place] [address]- 1009 Aug, [facility] [place] [facility] [address] [id number] [place] [address]- 5177 Aug, [facility] [place] [facility] [address] [id number] [place] [address]- 7378 Aug, [facility] [place] [facility] [address] [id number] [place] [address]- 9438 Aug, [facility] [place] [facility] [address] [facility] [id number] [place] [address]- 2206 Aug, [facility] [place] [facility] [address] [facility] [id number] [place] [address]- 2301 Aug, [facility] [place] [facility] [address] [id number] [place] [address]- 1004 Aug, [facility] [place] [facility] [address] [id number] [place] [address]- 7817 Jul, [facility] [place] [facility] [address] [id number] [place] [address]- 0731 Jul, [facility] [place] [facility] [address] [facility] [id number] [place] [address]- 4601 Jul, [facility] [place] [facility] [address] [id number] [place] [address]- 5348 Jul, [facility] [place] [facility] [address] [id number] [place] [address]- 3208 Jul, [facility] [place] [facility] [address] [id number] [place] [address]- 1266 Jul, [facility] [place] [facility] [address] [facility] [id number] [place] [address]- 3342 Jun, [facility] [place] [facility] [address] [id number] [place] [address]- 4501 Jun, [facility] [place] [facility] [address] [id number] [place] [address]- 9015 Jun, [facility] [place] [facility] [address] [id number] [place] [address]- 6815 Jun, [facility] [place] [facility] [address] [facility] [id number] [place] [address]- 9099 Jun, [facility] [place] [facility] [address] [facility] [id number] [place] [address]- 6064 Jun, [facility] [place] [facility] [address] [facility] [id number] [place] [address]- 2366 Jun, [facility] [place] [facility] [address] [facility] [id number] [place] [address]- 0672 Jun, [facility] [place] [facility] [address] [facility] [id number] [place] [address]- 0434 Jun, [facility] [place] [facility] [address] [facility] [id number] [place] [address]- 8727 26 May, 2012 [facility] [place] [facility] [address] [id number] [place] [address]- 5606 24 May, 2012 [facility] [place] [facility] [address] [facility] [id number] [place] [address]- 2542 18 May, 2012 [facility] [place] [facility] [address] [facility] [id number] [place] [address]- 4102 30 Apr, 2012 [facility] [place] [facility] [address] [id number] [place] [address]- 3990 Apr, [facility] [place] [facility] [address] [id number] [place] [address]- 1315 Apr, [facility] [place] [facility] [address] [id number] [place] [address]- 8926 Apr, [facility] [place] [facility] [address] [id number] [place] [address]- 9394 Apr, [facility] [place] [facility] [address] [id number] [place] [address]- 2288 Apr, [facility] [place] [facility] [address] [id number] [place] [address]- 8578 Mar, [facility] [place] [facility] [address] [id number] [place] [address]- 4076 Mar, [facility] [place] [facility] [address] [id number] [place] [address]- 7579 Mar, [facility] [place] [facility] [address] [id number] [place] [address]- 2566 Mar, [facility] [place] [facility] [address] [id number] [place] [address]- 5942 Feb, [facility] [place] [facility] [address] [id number] [place] [address]- 8155 Feb, [facility] [place] [facility] [address] [id number] [place] [address]- 7569 Feb, [facility] [place] [facility] [address] [id number] [place] [address]- 9836 Feb, [facility] [place] [facility] [address] [id number] [place] [address]- 0557 Feb, [facility] [place] [facility] [address] [id number] [place] [address]- 1820 January, [facility] [place] [facility] [address] [id number] [place] [address]- 4187 January, [facility] [address] [id number] [place] [address]- 8795 January, [facility] [place] [facility] [address] [id number] [place] [address]- 7749 January, [facility] [place] [facility] [address] [id number] [place] [address]- 4829 January, [facility] [place] [facility] [address] [id number] [place] [address]- 3504 January, [facility] [place] [facility] [address] [id number] [place] [address]- 4201 Dec, [facility] [place] [facility] [address] [id number] [place] [address]- 9299 Dec, [facility] [place] [facility] [address] [id number] [place] [address]- 3607 Dec, [facility] [place] [facility] [address] [id number] [place] [address]- 8070 Dec, [facility] [place] [facility] [address] [id number] [place] [address]- 0841 Dec, [facility] [place] [facility] [address] [id number] [place] [address]- 2428 Nov, [facility] [place] [facility] [address] [id number] [place] [address]- 8013 Nov, [facility] [place] [facility] [address] [id number] [place] [address]- 4753 Nov, [facility] [place] [facility] [address] [id number] [place] [address]- 5354 Nov, [facility] [place] [facility] [address] [id number] [place] [address]- 7986 Oct, [facility] [place] [facility] [address] [id number] [place] [address]- 6966 Oct, [facility] [place] [facility] [address] [id number] [place] [address]- 7354 24 Oct, 2011 [facility] [address] [id number] [place] [address]- 1826 Oct, [facility] [place] [facility] [address] [id number] [place] [address]- 1696 Oct, [facility] [address] [id number] [place] [address]- 2496 Sep, [facility] [place] [facility] [address] [id number] [place] [address]- 7130 Sep, [facility] [address] [id number] [place] [address]- 7854 Sep, [facility] [address] [id number] [place] [address]- 2723 Sep, [facility] [address] [id number] [place] [address]- 5372 Sep, [facility] [address] [id number] [place] [address]- 4357 Sep, [facility] [address] [id number] [place] [address]- 5823 Aug, [facility] [address] [id number] [place] [address]- 6301 Aug, [facility] [address] [id number] [place] [address] 2546 Aug, [facility] [place] [facility] [address] [id number] [place] [address] 2545 Jul, [facility] [place] [facility] [address] [id number] [place] [address]- 9318 Jul, [facility] [place] [facility] [address] [id number] [place] [address]- 2546 Jul, [facility] [address] [id number] [place] [address]- 7617 Jul, [facility] [place] [facility] [address] [id number] [place] [address]- 8522 Jun, [facility] [place] [facility] [address] [id number] [place] [address]- 8059 Jun, [facility] [place] [facility] [address] [id number] [place] [address]186 Jun, [facility] [place] [facility] [address] [id number] [place] [address]- 9959 Jun, [facility] [place] [facility] [address] [id number] [place] [address]- 4139 Jun, [facility] [place] [facility] [address] [id number] [place] [address]- [address] Jun, [facility] [place] [facility] [address] [id number] [place] [address] Mar, [facility] [place] [facility] [address] [id number] [place] [address] Dec, [facility] [place] [facility] [address] [id number] [place] [address] Dec, [facility] [place] [facility] [address] [id number] [place] [address] Nov, [facility] [place] [facility] [address] [id number] [place] [address] Nov, [facility] [place] [facility] [address] [id number] [address] Sep, [facility] [place] [facility] [address] [id number] [place] [address] Aug, [facility] [place] [facility] [address] [id number] [place] [address] Aug, [facility] [place] [facility] [address] [id number] [place] [address] Aug, [facility] [place] [facility] [address] [id number] [address] 29 Aug, 2010 [facility] [address] [id number] [place] [address] 27 Aug, 2010 [facility] [place] [facility] [address] [facility] [id number] [place] [address] 14 Aug, 2010 [facility] [address] [facility] [id number] [place] [address]- 1136 08 Aug, 2010 [facility] [place] [facility] [address] [id number] [place] [address] 08 Aug, 2010 [facility] [address] [facility] [id number] [place] [address], [place] [address] 07 Aug, 2010 [facility] [place] [facility] [address] [facility] [id number] [place] [address] 06 Aug, 2010 [facility] [address] [id number] [address] 06 Aug, 2010 [facility] [place] [facility] [address] [facility] [id number] [place] [address] Aug, [facility] [place] [facility] [address] [id number] [address] 30 Jul, 2010 [facility] [place] [facility] [address] [id number] [address] 30 Jul, 2010 [facility] [place] [facility] [address] [facility] [id number] [place] [address] 30 Jul, 2010 [facility] [place] [facility] [address] [facility] [id number] [place] [address] 17 Jul, 2010 [facility] [place] [facility] [address] [facility] [id number] [place] [address] Jul, [facility] [place] [facility] [address] [facility] [id number] [place] [address] Jul, [facility] [place] [facility] [address] [id number] [address] 24 Jun, 2010 [facility] [place] [facility] [address] [id number] [place] [address]- 69[address] 19 Jun, 2010 [facility] [place] [facility] [address] [id number] [place] [address]36 19 Jun, 2010 [facility] [place] [facility] [address] [id number] [place] [address] 2546 13 Jun, 2010 [facility] [place] [facility] [address] [id number] [place] [address] 2546 16 Apr, 2010 [facility] [place] [facility] [address] [id number] [place] [address] Mar, [facility] [place] [facility] [address] [id number] [place] [address] 17 Feb, 2010 [facility] [place] [facility] [address] [id number] [place] [address]- [address] January, [facility] [place] [facility] [address] [id number] [place] [address]- [address]10 15 Dec, 2009 [facility] [place] [facility] [address] [id number] [place] [address] Nov, [facility] [place] [facility] [address] [id number] [place] [address]70 31 Aug, 2009 [facility] [place] [facility] [address] [id number] [place] [address] 23 Aug, 2009 [facility] [place] [facility] [address] [id number] [place] [address] 8868 Aug, [facility] [place] [facility] [address] [id number] [place] [address]71 Jul, [facility] [place] [facility] [address] [id number] [place] [address] Jul, [facility] [place] [facility] [address] [id number] [place] [address] 07 Jul, 2009 [facility] [place] [facility] [address] [id number] [place] [address] Jun, [facility] [address] [id number] [address] Jun, [facility] [id number] [address] Jun, [facility] [id number] [address] Jun, [facility] [id number] [address] Jun, [facility] [id number] [address] Jun, [facility] [id number] [address] Apr, [facility] [id number] [address] Apr, [facility] [id number] [address] Feb, [facility] [id number] [address] January, [facility] [id number] [address] Dec, IMMUNIZATIONS No Known Immunizations SOCIAL HISTORY Never Assessed REASON FOR VISIT Controlled Med Refill 08/29/17 PLAN OF CARE VITAL SIGNS MEDICATIONS Medication Instructions Dosage Frequency Start Date End Date Duration Status Percocet 10-325 MG Orally 4 times a day 1 tablet as needed 6h Aug, 28 days Active RESULTS No Results PROCEDURES [...] obesity Medical History skin cancer-basal cell R restoration (removed) Medical History Arthritis Medical History degenerative [...] tunnel release (Left) 2000 Surgical History EGD ([facility]) 2009 Surgical History colonoscopy 2009 ([facility]), 2013 ([facility]) Surgical History heart 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 04/2014 Surgical History carotid US 05/2014 Surgical History resection of skin cancer from Right restoration Surgical History Biopsy of Lung Bilateral/Left lung lymph node 09/2016 Surgical History Bone Marrow Biopsy Surgical History port in the right chest wall 12/2016 Hospitalization History [facility] low potassium, low magnesium, chest painina 01/2015 Hospitalization History inability to urinate 09/16/15 Hospitalization History [facility] mental health early Hospitalization History hyperkalemia 10/2017 Hospitalization History fluid in lung
--- OUTSIDE RECORDS SUMMARY | 2018-08-08 13:25 | XMS REPORT ---
Author Author ROSELINE LUIS Organization [facility] Address [address] [place] [address] Care Team Providers Care Bottom Cager Name Role Phone ROSELINE LUIS Unavailable PROBLEMS Type Condition ICD9-CM Code YSP30-YW Code Onset Dates Condition Status SNOMED Code Problem Chronic lymphocytic leukemia C91.10 Active 72704815 Problem Insomnia, unspecified type G47.00 Active 028251854 Problem Lymphocytosis D72.820 Active 89510876 Problem Anxiety F41.9 Active 88042963 Problem Eye exam abnormal R93.8 Active 267912022 Problem Morbid obesity E66.01 Active 296997268 Problem Diabetic polyneuropathy associated with type 2 diabetes mellitus E11.42 Active 68103351 Problem Essential hypertension I10 Active 76485301 Problem Falling R29.6 Active 578851029 Problem 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 Active 021492650 Problem Cough R05 Active 44206316 Problem Dysuria R30.0 Active 47887100 Problem Eustachian tube dysfunction, unspecified laterality H69.80 Active 58419159 Problem Bilateral primary osteoarthritis of knee M17.0 Active 634645403 Problem Polyneuropathy associated with underlying disease G63 Active 621820053 Problem Anemia of chronic illness D63.8 Active 272462967 Problem Retinal edema H35.81 Active 8327637 Problem DM neuro manif type II E11.49 Active 21980846 Problem Diabetes E11.9 Active 56702991 Problem Hypokalemia E87.6 Active 90361300 Problem Benign prostatic hyperplasia with lower urinary tract symptoms, unspecified morphology N40.1 Active 459190462 Problem Reactive airway disease J45.909 Active 687278641902 Problem Bipolar I disorder, most recent episode (or current) mixed, moderate F31.62 Active 55536574 Problem Chronic pain G89.29 Active 71575987 Problem Leukocytosis D72.829 Active 089257863 ALLERGIES No Information ENCOUNTERS Encounter Location Date Diagnosis [facility] [address], [place] [address] Mar, [place] [id number] [place] [address] 07800- 8219 January, [place] [id number] [place] [address] 85877- 9737 Dec, Bipolar I disorder, most recent episode (or current) mixed, moderate F31.62 and BMI 50.0-59.9, adult Z68.43 [place] [id number] [place] [address] 84708- 9346 Dec, Bipolar I disorder, most recent episode (or current) mixed, moderate F31.62 [place] [id number] [place] [address] 48617- 6941 Dec, Chronic pain G89.29 [place] [id number] [place] [address] 54130- 6247 Dec, DM neuro manif type II E11.49 ; Right flank pain R10.9 ; 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 ; Encounter for medication monitoring Z51.81 and BMI 50.0-59.9, adult Z68.43 [place] [id number] [place] [address] 33352- 7578 Dec, Bipolar I disorder, most recent episode (or current) mixed, moderate F31.62 [place] [id number] [place] [address] 31104- 0437 Nov, Bipolar I disorder, most recent episode (or current) mixed, moderate F31.62 [place] [id number] [place] [address] 77883- 2194 Nov, Chronic pain G89.29 [place] [id number] [place] [address] 84708- 6446 Nov, Bipolar I disorder, most recent episode (or current) mixed, moderate F31.62 [place] [id number] [place] [address] 78546- 6495 Nov, Hypokalemia E87.6 [place] [id number] [place] [address] 85646- 0264 Nov, Bipolar I disorder, most recent episode (or current) mixed, moderate F31.62 [place] [id number] [place] [address] 06770- 7622 Oct, Chronic pain G89.29 [place] [address] 825757- 1246 Oct, BMI 50.0-59.9, adult Z68.43 and Bipolar I disorder, most recent episode (or current) mixed, moderate F31.62 [place] [id number] [place] [address] 94183- 8317 Oct, Bipolar I disorder, most recent episode (or current) mixed, moderate F31.62 [place] [id number] [place] [address] 10266- 9107 Oct, [place] [address] 95989- 3318 Oct, Hypokalemia E87.6 [place] [id number] [place] [address] 40655- 4332 Oct, DM neuro manif type II E11.49 [place] [id number] [place] [address] 33124- 9892 Oct, Bipolar I disorder, most recent episode (or current) mixed, moderate F31.62 [place] [id number] [place] [address] 97062- 1146 Oct, Bipolar I disorder, most recent episode (or current) mixed, moderate F31.62 [place] [id number] [place] [address] 46199- 5439 14 Oct, 2017 Hyperkalemia E87.5 ; Falling R29.6 ; BMI 50.0-59.9, adult Z68.43 and Acute left ankle pain M25.572 [place] [id number] [place] [address] 75680- 6532 08 Oct, 2017 DM neuro manif type II E11.49 [place] [id number] [place] [address] 47975- 0989 Oct, [place] [id number] [place] [address] 32019- 5021 Sep, Chronic pain G89.29 [place] [id number] [place] [address] 31947- 8378 Sep, [place] [address] 43908- 0505 Sep, Bilateral primary osteoarthritis of knee M17.0 [place] [id number] [place] [address] 04884- 1482 Sep, Generalized edema R60.1 [place] [id number] [place] [address] 22865- 9534 Sep, Bipolar I disorder, most recent episode (or current) mixed, moderate F31.62 [place] [id number] [place] [address] 94796- 7634 15 Sep, 2017 Hypoxia R09.02 ; Other hypervolemia E87.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 ; Anemia of chronic illness D63.8 and BMI 50.0- 59.9, adult Z68.43 [place] [id number] [place] [address] 84733- 9270 Sep, [place] [id number] [place] [address] 55828- 1379 Sep, Bipolar I disorder, most recent episode (or current) mixed, moderate F31.62 [place] [id number] [place] [address] 68207- 8004 Aug, Chronic pain G89.29 [facility] [address], [place] [address] 3060 Aug, Generalized edema R60.1 [facility] [address], [place] [address]- 2577 Aug, [facility] [id number] [place] [address] 09631- 3148 Aug, [facility] [id number] [place] [address] 79264- 1619 14 Aug, 2017 Bipolar I disorder, most recent episode (or current) mixed, moderate F31.62 [place] [id number] [place] [address] 57601- 8946 Aug, Bipolar I disorder, most recent episode (or current) mixed, moderate F31.62 [facility] [id number] [place] [address] 83794- 7363 Aug, Chronic pain G89.29 [facility] [id number] [place] [address] 50712- 1962 Jul, Bipolar I disorder, most recent episode (or current) mixed, moderate F31.62 [facility] [address], [place] [address]- 4843 Jul, Bipolar I disorder, most recent episode (or current) mixed, moderate F31.62 and BMI 60.0-69.9, adult Z68.44 [facility] [address], [place] [address]- 7579 16 Jul, 2017 Bipolar I disorder, most recent episode (or current) mixed, moderate F31.62 [facility] [id number] [place] [address] 65428- 7933 06 Jul, 2017 Chronic pain G89.29 [facility] [address], [place] [address]- 4636 02 Jul, 2017 Bipolar I disorder, most recent episode (or current) mixed, moderate F31.62 [facility] [address] [address]- 9583 18 Jun, 2017 Polyneuropathy associated with underlying disease G63 and Diabetes E11.9 [facility] [address] [address]- 3794 16 Jun, 2017 Bipolar I disorder, most recent episode (or current) mixed, moderate F31.62 [facility] [id number] [place] [address] 389539- 8658 09 Jun, 2017 Chronic pain G89.29 [facility] [id number] [place] [address] 61655- 6816 May, Bipolar I disorder, most recent episode (or current) mixed, moderate F31.62 [facility] [id number] [place] [address] 35692- 5603 21 May, 2017 Bipolar I disorder, most recent episode (or current) mixed, moderate F31.62 [facility] [address], [place] [address]- 3679 20 May, 2017 Diabetic polyneuropathy associated with type 2 diabetes mellitus E11.42 [facility] [id number] [place] [address] 36892- 7805 18 May, 2017 Bipolar I disorder, most recent episode (or current) mixed, moderate F31.62 [facility] [address], [place] [address]- 3531 13 May, 2017 Bipolar I disorder, most recent episode (or current) mixed, moderate F31.62 [facility] [address], [place] [address]- 7048 May, Chronic pain G89.29 [facility] [id number] [place] [address] 84122- 9575 Apr, Bipolar I disorder, most recent episode (or current) mixed, moderate F31.62 [facility] [id number] [place] [address] 40458- 0044 Apr, [facility] [id number] [place] [address] 72636- 2275 Apr, Chronic pain G89.29 and DM neuro manif type II E11.49 [facility] [id number] [place] [address] 88100- 5927 Apr, [facility] [id number] [place] [address] 48440- 8829 Apr, Bipolar I disorder, most recent episode (or current) mixed, moderate F31.62 [facility] [id number] [place] [address] 26636- 9576 Apr, Chronic pain G89.29 [facility] [id number] [place] [address] 49122- 7707 Apr, Iliotibial band syndrome, left M76.32 [facility] [id number] [place] [address] 29955- 9318 Apr, Bipolar I disorder, most recent episode (or current) mixed, moderate F31.62 [facility] [id number] [place] [address] 96196- 8821 Mar, Bipolar I disorder, most recent episode (or current) mixed, moderate F31.62 [facility] [id number] [place] [address] 62702- 7289 Mar, Bipolar I disorder, most recent episode (or current) mixed, moderate F31.62 [facility] [id number] [place] [address] 01044- 4511 Mar, [facility] [id number] [place] [address] 90716- 1099 Mar, Bipolar I disorder, most recent episode (or current) mixed, moderate F31.62 [facility] [id number] [place] [address] 19295- 8519 Mar, Chronic pain G89.29 [facility] [id number] [place] [address] 63422- 6583 Mar, Bipolar I disorder, most recent episode (or current) mixed, moderate F31.62 [facility] [id number] [place] [address] 20264- 1112 Mar, Bipolar I disorder, most recent episode (or current) mixed, moderate F31.62 [facility] [id number] [place] [address] 91000- 0306 Mar, Acute pain of left knee M25.562 ; Left hip pain M25.552 ; Generalized edema R60.1 and Tongue swelling R22.0 [facility] [id number] [place] [address] 96384- 5146 Mar, [facility] [id number] [place] [address] 38035- 1198 Feb, Chronic pain G89.29 [facility] [id number] [place] [address] 48783- 9607 Feb, Diabetes E11.9 [facility] [id number] [place] [address] 08845- 4406 January, Chronic pain G89.29 [facility] [id number] [place] [address] 44596- 7414 January, [facility] [id number] [place] [address] 53277- 3893 January, Bipolar I disorder, most recent episode (or current) mixed, moderate F31.62 [facility] [id number] [place] [address] 23435- 5995 Dec, Bipolar I disorder, most recent episode (or current) mixed, moderate F31.62 [facility] [id number] [place] [address] 49509- 1854 Dec, Chronic pain G89.29 [facility] [id number] [place] [address] 09711- 5644 Dec, Bipolar I disorder, most recent episode (or current) mixed, moderate F31.62 [facility] [address], [place] [address]- 6208 Dec, Diabetes E11.9 ; Essential hypertension I10 ; Chronic pain G89.29 and Morbid obesity E66.01 [facility] [id number] [place] [address] 57478- 0551 Dec, [facility] [id number] [place] [address] 98496- 8843 Dec, Bipolar I disorder, most recent episode (or current) mixed, moderate F31.62 [facility] [id number] [place] [address] 445552- 4502 Dec, Bipolar I disorder, most recent episode (or current) mixed, moderate F31.62 [facility] [id number] [place] [address] 10264- 8169 Nov, Chronic pain G89.29 [facility] [id number] [place] [address] 76937- 8603 Nov, Bipolar I disorder, most recent episode (or current) mixed, moderate F31.62 [facility] [id number] [place] [address] 54878- 3843 Nov, [facility] [id number] [place] [address] 97804- 8161 Nov, Bipolar I disorder, most recent episode (or current) mixed, moderate F31.62 [facility] [id number] [place] [address] 68091- 7008 Nov, Bipolar I disorder, most recent episode (or current) mixed, moderate F31.62 [facility] [id number] [place] [address] 25835- 7999 Nov, [facility] [id number] [place] [address] 87559- 6272 Nov, [facility] [id number] [address]- 1293 Nov, [facility] [id number] [place] [address] 05056- 7893 Oct, Chronic pain G89.29 [facility] [id number] [place] [address] 38885- 0606 Oct, Bipolar I disorder, most recent episode (or current) mixed, moderate F31.62 [facility] [id number] [place] [address] 81402- 3593 Oct, [facility] [id number] [place] [address] 61899- 9548 Oct, Chronic pain G89.29 ; Diabetes E11.9 ; Anxiety F41.9 and 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 [facility] [id number] [place] [address] 23621- 6096 Oct, [facility] [id number] [place] [address] 27458- 3024 Oct, Diabetes E11.9 [facility] [id number] [place] [address] 34341- 4364 Oct, Bipolar I disorder, most recent episode (or current) mixed, moderate F31.62 [facility] [id number] [place] [address] 50250- 8969 Sep, Chronic pain G89.29 [facility] [id number] [place] [address] 91178- 1002 Sep, Chronic pain G89.29 [facility] [id number] [place] [address] 80890- 4792 Aug, Chronic pain G89.29 [facility] [id number] [place] [address] 38789- 5134 Jul, [facility] [id number] [place] [address] 43862- 6701 Jul, Diabetes E11.9 [facility] [id number] [place] [address] 77196- 0282 Jul, Chronic pain G89.29 [place] [id number] [place] [address] 4401 Jul, Bipolar I disorder, most recent episode (or current) mixed, moderate F31.62 [place] [address] 56181- 3890 Jun, Bipolar I disorder, most recent episode (or current) mixed, moderate F31.62 [place] [address] 33772- 6228 Jun, [place] [address] 52201- 8109 Jun, Bipolar I disorder, most recent episode (or current) mixed, moderate F31.62 [place] [address] 26004- 3804 May, Insomnia, unspecified type G47.00 [place] [address] 17326- 6282 May, Bipolar I disorder, most recent episode (or current) mixed, moderate F31.62 [place] [id number] [place] [address] 24646- 1729 14 May, 2016 [place] [address] 80244- 9809 08 May, 2016 Bipolar I disorder, most recent episode (or current) mixed, moderate F31.62 [place] [id number] [place] [address] 74685- 9658 06 May, 2016 Diabetes E11.9 and Essential hypertension I10 [place] [id number] [place] [address] 23299- 5310 Apr, Chronic pain G89.29 [place] [address] [place] [address]202- 2546 Apr, Bipolar I disorder, most recent episode (or current) mixed, moderate F31.62 [place] [id number] [place] [address] 44763- 9976 Apr, [facility] [id number] [place] [address] 47974- 9548 Apr, [facility] [id number] [place] [address] 66694- 5269 Mar, Chronic pain G89.29 ; Headache, unspecified headache type R51 ; Neuropathy G62.9 ; Pain of right hip joint M25.551 and Essential hypertension I10 [place] [id number] [place] [address] 70151- 7269 Mar, Chronic pain G89.29 [place] [id number] [place] [address] 06143- 0494 Mar, Bipolar I disorder, most recent episode (or current) mixed, moderate F31.62 [place] [id number] [place] [address] 35745- 1911 Feb, Bipolar I disorder, most recent episode (or current) mixed, moderate F31.62 and Insomnia, unspecified type G47.00 [place] [id number] [place] [address] 62708- 7178 Feb, Chronic pain G89.29 [place] [id number] [place] [address] 70433- 6450 Feb, Bipolar I disorder, most recent episode (or current) mixed, moderate F31.62 [place] [id number] [place] [address] 23171- 3657 January, Bipolar I disorder, most recent episode (or current) mixed, moderate F31.62 [place] [id number] [place] [address] 21012- 2257 January, Chronic pain G89.29 [place] [id number] [place] [address] 64095- 4664 January, Chronic pain G89.29 and Essential hypertension I10 [facility] [id number] [place] [address] 39612- 1228 January, Bipolar I disorder, most recent episode (or current) mixed, moderate F31.62 [facility] [id number] [place] [address] 44455- 8868 Dec, [facility] [id number] [place] [address] 25764- 7110 Dec, [facility] [id number] [place] [address] 63586- 8139 Dec, [facility] [id number] [place] [address] 35993- 3375 Dec, [facility] [id number] [place] [address] 60434- 8695 Nov, Reactive airway disease J45.909 [facility] [id number] [place] [address] 07723- 8759 Nov, [facility] [id number] [place] [address] 77016- 6702 Nov, [facility] [id number] [place] [address] 47450- 8146 Nov, [facility] [id number] [place] [address] 01804- 4550 Nov, [facility] [id number] [place] [address] 19444- 8193 Nov, Onychomycosis B35.1 ; Hammertoe M20.40 ; [place] or callus L84 and DM neuro manif type II E11.49 [facility] [address] [place] [address] 31141- 0977 15 Nov, 2015 Chronic pain G89.29 ; Leukocytosis D72.829 and Diabetes E11.9 [facility] [id number] [place] [address] 63033- 9938 Nov, [facility] [id number] [place] [address] 16674- 8557 Oct, Bronchitis J40 [facility] [id number] [place] [address] 51372- 3276 Oct, [facility] [address] 92259- 4079 Oct, [facility] [id number] [place] [address] 30512- 9489 Oct, Mastoiditis, unspecified laterality H70.90 and Type 2 diabetes mellitus with complication E11.8 [place] [id number] [place] [address] 89595- 0898 Sep, [place] [address] 80982- 3647 Sep, Dysuria R30.0 ; Cough R05 ; Benign prostatic hyperplasia with lower urinary tract symptoms, unspecified morphology N40.1 ; Hypokalemia E87.6 and Eustachian tube dysfunction, unspecified laterality H69.80 [place] [id number] [place] [address] 64575- 5571 Sep, Moderate mixed bipolar I disorder F31.62 [place] [id number] [place] [address] 43582- 1672 Sep, Hypokalemia E87.6 [facility] [id number] [place] [address] 80099- 3762 Sep, [facility] [address] 69444- 1469 Sep, Upper respiratory tract infection, unspecified type J06.9 [facility] [id number] [place] [address] 14110- 5628 Aug, [facility] [address] 27503- 2706 Aug, Dysuria R30.0 [facility] [address] 1336 Aug, [facility] [address]- 3952 Jul, [facility] [address] 5683 Jul, [facility] [address], [place] [address]- 1250 Jul, [facility] [id number] [place] [address] 843271- 0437 Jul, [facility] [id number] [place] [address] 82564- 9789 Jun, [facility] [id number] [place] [address] 280349- 4914 Jun, [facility] [address], [place] [address]- 0013 Jun, [facility] [address] [place] [address]- 8182 29 May, 2015 [facility] [id number] [place] [address] May, Bipolar I disorder, most recent episode (or current) mixed, moderate 296.62 [facility] [id number] [place] [address] 16 May, 2015 [facility] [id number] [address] May, Bipolar I disorder, most recent episode (or current) mixed, moderate 296.62 and Major depressive disorder, recurrent episode, severe, specified as with psychotic behavior 296.34 [facility] [id number] [address] May, Bipolar I disorder, most recent episode (or current) mixed, moderate 296.62 [facility] [id number] [place] [address] May, [facility] [id number] [address] Apr, [facility] [id number] [place] [address] Apr, [facility] [id number] [place] [id number] Apr, Unspecified disorder of kidney and ureter 593.9 and Diabetes mellitus type 2, uncontrolled 250.02 [facility] [id number] [place] [address] 63657- 2923 Apr, [facility] [id number] [address] 4266 Apr, [facility] [id number] [place] [address] 64362- 6169 Apr, [facility] [address], [place] [address] 5028 Apr, [facility] [address], [place] [address] 9234 Apr, Diabetes mellitus type II, uncontrolled 250.02 [facility] [address], [place] [address] 6882 Apr, [facility] [address], [place] [address] 6366 Mar, [facility] [address], [place] [address]- 1250 Mar, [facility] [address], [place] [address] 9667 Mar, [facility] [address], [place] [address] 8961 Mar, Major depressive disorder, recurrent episode, severe, specified as with psychotic behavior 296.34 and Bipolar I disorder, most recent episode (or current) mixed, moderate 296.62 [facility] [id number] [place] [address] 74080- 4915 Mar, Diabetes 250.00 ; Anuria 788.5 ; Nausea and vomiting 787.01 and Diarrhea 787.91 [facility] [id number] [place] [address] 59069- 5791 Mar, Diabetes 250.00 [facility] [id number] [place] [address] 07954- 3685 Mar, [facility] [id number] [place] [address] 47603- 3101 Mar, Diabetes 250.00 [facility] [id number] [place] [address] 76728- 2956 Mar, [facility] [id number] [place] [address] 46318- 3219 Mar, [facility] [id number] [place] [address] 15044- 6733 Mar, [facility] [id number] [place] [address] 46711- 8327 Mar, [facility] [id number] [place] [address] 45540- 4291 Mar, Bipolar I disorder, most recent episode (or current) mixed, moderate 296.62 and Major depressive disorder, recurrent episode, severe, specified as with psychotic behavior 296.34 [facility] [id number] [place] [address] 51234- 6163 Mar, Magnesium deficiency 275.2 ; Hypokalemia 276.8 ; Nausea & vomiting 787.01 and Diabetes mellitus type 2, uncontrolled 250.02 [facility] [id number] [place] [address] 06389- 4133 Feb, [facility] [id number] [place] [address] 21691- 3397 Feb, Bipolar I disorder, most recent episode (or current) mixed, moderate 296.62 [facility] [id number] [place] [address] 50486- 8070 Feb, Nausea and vomiting 787.01 ; Left elbow pain 719.42 ; Anuria 788.5 and Diabetes 250.00 [facility] [id number] [place] [address] 36195- 2405 Feb, [facility] [address] [address]498- 2306 Feb, Hypopotassemia 276.8 and Hypokalemia 276.8 [facility] [address] 16759- 1482 Feb, Hypopotassemia 276.8 and Hypokalemia 276.8 [facility] [id number] [place] [address] 30026- 9385 Feb, Seborrheic keratoses 702.19 [facility] [id number] [place] [address] 58680- 5745 Feb, Hypopotassemia 276.8 and Low magnesium levels 275.2 [facility] [id number] [place] [address] 40542- 4368 January, [facility] [id number] [place] [address] 32465- 6001 January, [facility] [id number] [place] [address] 35750- 2678 January, [facility] [id number] [place] [address] 94903- 6717 January, Scalp lesion 709.9 [facility] [id number] [place] [address] 56998- 7387 January, [facility] [id number] [place] [address] 46939- 1268 Dec, Tear of medial cartilage or meniscus of knee, current 836.0 and 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 [facility] [address] [facility] [id number] [place] [address] 2546 Dec, [facility] [address] [facility] [id number] [place] [address] 2546 29 Dec, 2014 [facility] [address] [facility] [id number] [place] [address] 2546 28 Dec, 2014 Squamous cell carcinoma, 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 [address] [id number] [place] [address] 2546 14 Dec, 2014 [facility] [address] [facility] [id number] [place] [address]- 7946 Dec, [facility] [address] [facility] [id number] [place] [address]- 3026 Nov, [facility] [address] [place] [address]- 8986 Nov, [facility] [address] [facility] [id number] [place] [address]- 7099 Nov, [facility] [address] [facility] [id number] [place] [address] 2546 Nov, [facility] [address] [facility] [id number] [place] [address] 2548 Nov, [facility] [id number] [place] [address] 2546 Nov, [facility] [address] [facility] [id number] [place] [address] 2546 Nov, [facility] [address] [facility] [id number] [place] [address] 2546 Nov, [facility] [address] [facility] [id number] [place] [address] 2546 Nov, [facility] [address] [facility] [id number] [place] [address] 2546 Nov, [facility] [place] [facility] [address] [id number] [place] [address]- 5930 Nov, [facility] [place] [facility] [address] [id number] [place] [address]- 1261 Nov, [facility] [place] [facility] [address] [id number] [place] [address]- 6921 Oct, 2014 [facility] [place] [facility] [address] [id number] [place] [address]- 5182 Oct, 2014 [facility] [place] [facility] [address] [id number] [place] [address]- 4512 Oct, 2014 [facility] [place] [facility] [address] [id number] [place] [address]- 0732 Oct, 2014 [facility] [place] [facility] [address] [facility] [id number] [place] [address]- 8147 Oct, 2014 [facility] [place] [facility] [address] [id number] [place] [address]- 2713 Oct, 2014 [facility] [place] [facility] [address] [facility] [id number] [place] [address]- 1014 Oct, [facility] [place] [facility] [address] [facility] [id number] [place] [address]- 5248 Oct, [facility] [place] [facility] [address] [facility] [id number] [place] [address]- 8155 Oct, [facility] [place] [facility] [address] [id number] [address]- 0558 Sep, [facility] [place] [facility] [address] [id number] [place] [address]- 4222 Sep, [facility] [place] [facility] [address] [facility] [id number] [place] [address]- 0339 Sep, [facility] [place] [facility] [address] [facility] [id number] [place] [address]- 0854 Sep, [facility] [place] [facility] [address] [id number] [place] [address]- 3464 Sep, [facility] [address] [id number] [place] [address]- 1169 Sep, [facility] [address] [id number] [place] [address]- 8154 Sep, [facility] [address] [id number] [place] [address]- 1433 Sep, [facility] [address] [id number] [place] [address]- 1392 Sep, [facility] [address] [id number] [place] [address]- 8784 Sep, [facility] [address] [id number] [place] [address]- 5938 Sep, [facility] [address] [id number] [place] [address]- 9296 Sep, [facility] [address] [id number] [place] [address]- 7732 Sep, [facility] [address] [id number] [place] [address]- 9727 Sep, [facility] [address] [id number] [place] [address]- 2308 Sep, [facility] [address] [id number] [place] [address]- 0018 Sep, [facility] [address] [id number] [place] [address]- 6125 Aug, [facility] [place] [facility] [address] [id number] [place] [address]- 5589 Aug, [facility] [place] [facility] [address] [id number] [place] [address]- 5980 Aug, [facility] [place] [facility] [address] [id number] [place] [address]- 7054 Aug, [facility] [address] [id number] [place] 4335 Aug, [facility] [address] [id number] [place] 0062 Aug, [facility] [address] [id number] [place] [address]- 3718 Aug, [facility] [address] [id number] [place] [address]- 4887 Aug, [facility] [address] [id number] [place]- 5162 Aug, [facility] [address] [id number] [place] [address]- 6774 Aug, [facility] [address] [id number] [place] [address]- 6573 Aug, [facility] [address] [place] [id number] Aug, [facility] [address] [id number] [place] [address]- 2298 Aug, [facility] [address] [id number] [place] [address]- 3059 Aug, [facility] [address] [id number] [place] [address]- 4847 Aug, [facility] [address] [id number] [place] [address]- 8140 Aug, [facility] [address] [id number] [place] [address]- 7878 Aug, [facility] [address] [id number] [place] 2822 Aug, [facility] [address] [id number] [place] [address]- 8836 Aug, [facility] [address] [id number] [place] [address]- 6431 Aug, [facility] [place] [facility] [address] [id number] [place] [address]- 3282 Aug, [facility] [place] [facility] [address] [id number] [place] [address]- 0175 Aug, [facility] [place] [facility] [address] [id number] [place] [address]- 7428 Aug, [facility] [place] [facility] [address] [id number] [place] [address]- 6423 Aug, [facility] [place] [facility] [address] [id number] [place] [address]- 1436 Aug, [facility] [place] [facility] [address] [id number] [place] [address]- 9239 Aug, [facility] [place] [facility] [address] [id number] [place] [address]- 4690 Aug, [facility] [place] [facility] [address] [id number] [place] [address]- 6248 Aug, [facility] [place] [facility] [address] [id number] [place] [address]- 0574 Aug, [facility] [place] [facility] [address] [id number] [place] [address]- 6980 Aug, [facility] [place] [facility] [address] [id number], [place] [address]- 6991 Jul, [facility] [place] [facility] [address] [id number], [place] [address]- 7203 Jul, [facility] [place] [facility] [address] [id number] [place] [address]- 4363 Jul, [facility] [place] [facility] [address] [id number] [place] [address]- 2777 Jul, [facility] [place] [facility] [address] [facility] [id number] [place] [address]- 4955 Jul, [facility] [place] [facility] [address] [id number] [place] [address]- 1052 Jul, [facility] [place] [facility] [address] [id number] [place] 2502 Jul, [facility] [place] [facility] [address] [id number] [place] 7806 Jul, [facility] [place] [facility] [address] [id number] [place] 6339 Jul, [facility] [place] [facility] [address] [id number] [place] [address]- 6264 Jul, [facility] [place] [facility] [address] [id number] [place] [address]- 9381 Jun, [facility] [place] [facility] [address] [id number] [place] [address]- 7076 Jun, [facility] [place] [facility] [address] [id number] [place] [address]- 6334 Jun, [facility] [place] [facility] [address] [id number] [place] [address]- 6441 Jun, [facility] [place] [facility] [address] [id number] [place] [address]- 3123 Jun, [facility] [place] [facility] [address] [facility] [id number] [place] [address]- 8950 Jun, [facility] [place] [facility] [address] [id number] [place] [address]- 4705 Jun, [facility] [place] [facility] [address] [id number], [place] [address]- 9628 Jun, [facility] [place] [facility] [address] [id number] [place] 6991 Jun, [facility] [place] [facility] [address] [facility] [id number] [place] 7905 Jun, [facility] [place] [facility] [address] [id number] [place] 3581 May, [facility] [place] [facility] [address] [id number] [place] [address]- 254 29 Sep, 2013 [facility] [place] [facility] [address] [id number] [place] [address] 2544 26 Sep, 2013 [facility] [place] [facility] [address] [id number] [place] [address]- 2549 26 Sep, 2013 [facility] [place] [facility] [address] [id number] [place] [address]- 2548 17 Sep, 2013 [facility] [place] [facility] [address] [id number] [place] [address]- 4352 17 Sep, 2013 [facility] [place] [facility] [address] [id number] [place] [address]- 6029 15 Sep, 2013 [facility] [place] [facility] [address] [id number] [place] [address]- 8833 15 Sep, 2013 [facility] [place] [facility] [address] [id number] [place] [address]- 6275 15 Sep, 2013 [facility] [place] [facility] [address] [id number] [place] [address]- 9683 15 May, 2013 [facility] [place] [facility] [address] [id number] [place] [address]- 9859 10 May, 2013 [facility] [place] [facility] [address] [id number] [place] [address]- 2549 10 Sep, 2013 [facility] [place] [facility] [address] [id number] [place] [address]- 2545 09 Sep, 2013 [facility] [place] [facility] [address] [id number] [place] [address]- 254 09 Sep, 2013 [facility] [place] [facility] [address] [id number] [place] [address]- 254 04 Sep, 2013 [facility] [place] [facility] [address] [id number] [place] [address]- 254 04 Sep, 2013 [facility] [place] [facility] [address] [id number] [place] [address]- 4550 Apr, [facility] [place] [facility] [address] [id number] [place] [address]- 4000 Apr, [facility] [place] [facility] [address] [id number] [place] [address]- 0684 Apr, [facility] [place] [facility] [address] [id number] [place] [address]- 9135 Apr, [facility] [place] [facility] [address] [id number] [place] [address]- 5556 Apr, [facility] [place] [facility] [address] [id number] [place] [address]- 3301 Apr, [facility] [place] [facility] [address] [id number] [place] [address]- 6147 Apr, [facility] [place] [facility] [address] [id number] [place] [address]- 6834 Apr, [facility] [place] [facility] [address] [id number] [place] [address]- 0403 Apr, [facility] [place] [facility] [address] [id number] [place] [address]- 5589 Apr, [facility] [place] [facility] [address] [id number] [place] [address]- 8543 Apr, [facility] [place] [facility] [address] [id number] [place] [address]- 9897 Apr, [facility] [place] [facility] [address] [id number] [place] [address]- 6617 Apr, [facility] [place] [facility] [address] [id number] [place] [address]- 6535 Apr, [facility] [place] [facility] [address] [id number] [place] [address]- 3146 Apr, [facility] [place] [facility] [address] [id number] [place] [address]- 4382 Mar, [facility] [place] [facility] [address] [id number] [place] [address]- 3232 Mar, 2013 [facility] [place] [facility] [address] [id number] [place] [address]- 5641 Mar, 2013 [facility] [place] [facility] [address] [id number] [place] [address]- 3201 Mar, 2013 [facility] [place] [facility] [address] [id number] [place] [address]- 1822 Mar, 2013 [facility] [place] [facility] [address] [id number] [place] [address]- 6753 Mar, 2013 [facility] [place] [facility] [address] [id number] [place] [address]- 0361 Mar, 2013 [facility] [place] [facility] [address] [id number] [place] [address]- 1065 Mar, 2013 [facility] [place] [facility] [address] [id number] [place] [address]- 4805 Mar, 2013 [facility] [place] [facility] [address] [id number] [place] [address]- 2896 Mar, 2013 [facility] [place] [facility] [address] [id number] [place] [address]- 0325 Mar, [address] [facility] [place] [facility] [address] [id number] [place] [address]- 0206 Mar, 2013 [facility] [place] [facility] [address] [id number] [place] [address]- 1563 Mar, 2013 [facility] [place] [facility] [address] [id number] [place] [address]- 5233 Mar, 2013 [facility] [place] [facility] [address] [id number] [place] [address]- 8808 Mar, 2013 [facility] [place] [facility] [address] [id number] [place] [address]- 6397 Mar, 2013 [facility] [place] [facility] [address] [id number] [place] 1040 Mar, [facility] [place] [facility] [address] [id number] [place] [address]- 8374 Mar, [facility] [place] [facility] [address] [id number] [place] [address]- 5391 Feb, [facility] [place] [facility] [address] [id number] [place] [address]- 7820 Feb, [facility] [place] [facility] [address] [id number] [place] [address]- 0457 Feb, [facility] [place] [facility] [address] [id number] [place] [address]- 4893 Feb, [facility] [place] [facility] [address] [id number] [place] [address]- 9983 Feb, [facility] [place] [facility] [address] [id number] [place] [address]- 3737 Feb, [facility] [place] [facility] [address] [id number] [place] [address]- 6613 Feb, [facility] [place] [facility] [address] [id number] [place] [address]- 8216 Feb, [facility] [place] [facility] [address] [id number] [place] [address]- 6487 Feb, [facility] [place] [facility] [address] [id number] [place] [address] Feb, [facility] [place] [facility] [address] [id number], [place] [address] Feb, [facility] [place] [facility] [address] [id number] [place] [address] Feb, [facility] [place] [facility] [address] [id number] [place] [address] Feb, [facility] [place] [facility] [address] [id number] [place] [address] Feb, [facility] [place] [facility] [address] [id number], [place] [address] January, [facility] [address] [id number] [place] [address] January, [facility] [place] [facility] [address] [id number] [place] [address] January, [facility] [address] [id number] [place] [address] January, [facility] [place] [facility] [address] [id number] [place] [address] January, [facility] [place] [facility] [address] [id number] [place] [address] January, [facility] [address] [id number] [place] [address] January, [facility] [address] [id number] [place] [address] January, [facility] [address] [id number] [place] [address] January, [facility] [address] [id number] [place] [address] January, [facility] [address] [id number] [place] [address] January, [facility] [address] [id number] [place] [address] January, [facility] [place] [facility] [address] [id number] [place] [address] January, [facility] [place] [facility] [address] [id number] [place] [address] January, [facility] [place] [facility] [address] [id number] [place] [address] Dec, [facility] [place] [facility] [address] [id number] [place] [address] Dec, [facility] [place] [facility] [address] [id number] [place] [address] Dec, [facility] [place] [facility] [address] [id number] [place] [address] Dec, [facility] [place] [facility] [address] [id number] [place] [address]- [address] Dec, [facility] [place] [facility] [address] [id number] [place] [address]- [address]46 Dec, [facility] [place] [facility] [address] [id number] [place] [address] Dec, [facility] [place] [facility] [address] [id number] [place] [address] Dec, [facility] [place] [facility] [address] [id number] [place] [address]6 Dec, [facility] [place] [facility] [address] [id number] [place] [address] Dec, [facility] [place] [facility] [address] [id number] [place] [address] Nov, [facility] [place] [facility] [address] [id number] [place] [address] Nov, [facility] [place] [facility] [address] [id number] [place] [address] Nov, [facility] [place] [facility] [address] [id number] [place] [address] Nov, [facility] [place] [facility] [address] [id number] [place] [address]449 Nov, [facility] [place] [facility] [address] [id number] [place] [address] Nov, [facility] [place] [facility] [address] [id number] [place] [address] 05 Nov, 2013 [facility] [place] [facility] [address] [id number] [place] [address] Nov, [facility] [place] [facility] [address] [id number] [place] [address] Nov, [facility] [place] [facility] [address] [id number] [place] [address] Nov, [facility] [place] [facility] [address] [facility] [id number] [place] [address] Oct, [facility] [place] [facility] [address] [id number] [place] [address] Oct, [facility] [place] [facility] [address] [id number] [place] [address]89 Oct, [facility] [place] [facility] [address] [facility] [id number] [place] [address] Oct, [facility] [place] [facility] [address] [facility] [id number] [place] [address] Oct, [facility] [place] [facility] [address] [facility] [id number] [place] [address] Oct, [facility] [place] [facility] [address] [facility] [id number] [place] [address]- [address] Oct, [facility] [place] [facility] [address] [facility] [id number] [place] [address] Oct, [facility] [place] [facility] [address] [facility] [id number] [place] [address]- [address] Oct, [facility] [place] [facility] [address] [facility] [id number] [place] [address]- [address] Oct, [facility] [place] [facility] [address] [facility] [id number] [place] [address]- [address] Oct, [facility] [place] [facility] [address] [facility] [id number] [place] [address]- [address] Oct, [facility] [place] [facility] [address] [facility] [id number] [place] [address] 47[address] Oct, [facility] [place] [facility] [address] [id number] [place] [address] Oct, [facility] [place] [facility] [address] [id number] [place] [address] Sep, [facility] [place] [facility] [address] [id number] [place] [address] Sep, [facility] [place] [facility] [address] [address] [id number] [place] [address] Sep, [facility] [place] [facility] [address] [id number] [place] [address] Sep, [facility] [place] [facility] [address] [id number] [place] [address] Sep, [facility] [place] [facility] [address] [id number] [place] [address] 7946 Sep, [facility] [place] [facility] [address] [id number] [place] [address] 3269 Sep, [facility] [place] [facility] [address] [id number] [place] [address] 6093 Sep, [facility] [place] [facility] [address] [id number] [place] [address] 2509 Sep, [facility] [place] [facility] [address] [id number] [place] [address] 38[address] Sep, [facility] [place] [facility] [address] [id number] [place] [address] 7210 Aug, [facility] [place] [facility] [address] [id number] [place] [address] 2689 Aug, [facility] [place] [facility] [address] [id number] [place] [address] 4277 Jul, [facility] [place] [facility] [address] [id number] [place] [address] 5026 Jul, [facility] [place] [facility] [address] [id number], [place] [address] 84[address] Jul, [facility] [place] [facility] [address] [id number] [place] [address] 9919 Jul, [facility] [place] [facility] [address] [id number] [place] [address]- 3713 Jul, [facility] [place] [facility] [address] [id number] [place] [address]- 7925 Jul, [facility] [place] [facility] [address] [id number] [place] [address]- 1045 Jul, [facility] [place] [facility] [address] [id number] [place] [address]- 2457 Jul, [facility] [place] [facility] [address] [id number] [place] [address]- 5184 Jul, [facility] [place] [facility] [address] [id number], [place] [address] 7946 Jul, [facility] [place] [facility] [address] [id number] [place] [address]- 4221 Jul, [facility] [place] [facility] [address] [id number], [place] [address] 8868 Jul, [facility] [place] [facility] [address] [id number] [place] [address]- 1404 Jul, [facility] [place] [facility] [address] [id number], [place] [address] 3752 Jul, [facility] [place] [facility] [address] [id number], [place] [address] 4879 Jul, [facility] [place] [facility] [address] [id number], [place] [address]- 6173 Jul, [facility] [place] [facility] [address] [id number], [place] [address]- 8035 Jul, [facility] [place] [facility] [address] [id number] [place] [address]- 1607 Jul, [facility] [place] [facility] [address] [id number] [place] [address]- 2546 Jul, 2012 [facility] [place] [facility] [address] [id number] [place] [address]- 8663 16 Jun, 2012 [facility] [place] [facility] [address] [id number] [place] [address]- 2546 Jun, 2012 [facility] [place] [facility] [address] [id number] [place] [address]- 2540 Jun, 2012 [facility] [place] [facility] [address] [id number] [place] [address]- 2549 Jun, 2012 [facility] [place] [facility] [address] [id number] [place] [address]- 4212 Jun, 2012 [facility] [place] [facility] [address] [id number] [place] [address]- 2788 Jun, 2012 [facility] [place] [facility] [address] [id number] [place] [address]- 6798 Jun, 2012 [facility] [place] [facility] [address] [id number] [place] [address]- 6585 10 Jun, 2012 [facility] [place] [facility] [address] [id number] [place] [address]- 3027 Jun, 2012 [facility] [place] [facility] [address] [id number] [place] [address]- 8904 Jun, [facility] [place] [facility] [address] [id number] [place] [address]- 2545 Jun, 2012 [facility] [place] [facility] [address] [id number] [place] [address]- 8710 26 May, 2012 [facility] [place] [facility] [address] [id number] [place] [address] 1921 25 May, 2012 [facility] [place] [facility] [address] [id number] [place] [address]- 2546 19 May, 2012 [facility] [place] [facility] [address] [id number] [place] [address]- 5621 17 May, 2013 [facility] [place] [facility] [address] [id number] [place] [address]- 3389 11 May, 2013 [facility] [place] [facility] [address] [id number] [place] [address]- 2506 10 May, 2013 [facility] [place] [facility] [address] [id number] [place] [address]- 0391 May, [facility] [place] [facility] [address] [id number] [place] [address]- 3079 05 May, 2013 [facility] [place] [facility] [address] [id number] [place] [address]- 6637 Apr, [facility] [place] [facility] [address] [id number] [place] [address]- 2877 Apr, [facility] [place] [facility] [address] [id number] [place] [address]- 8887 Apr, [facility] [place] [facility] [address] [id number] [place] [address]- 6627 Apr, [facility] [place] [facility] [address] [id number] [place] [address]- 1898 Apr, [facility] [place] [facility] [address] [id number] [place] [address]- 5784 Mar, [facility] [place] [facility] [address] [id number] [place] [address]- 4678 Mar, [facility] [place] [facility] [address] [id number] [place] [address]- 6125 Mar, [facility] [place] [facility] [address] [id number] [place] [address]- 5782 Mar, [facility] [place] [facility] [address] [id number] [place] [address]- 6595 Mar, [facility] [place] [facility] [address] [id number] [place] [address]- 5950 Mar, [facility] [place] [facility] [address] [id number] [place] [address]- 9865 Mar, [facility] [address] [id number] [place] [address]- 0298 Mar, [facility] [address] [id number] [place] [address]- 5833 Feb, [facility] [address] [id number] [place] [address]- 5093 Feb, [facility] [place] [facility] [address] [id number] [place] [address]- 0078 January, [facility] [address] [id number] [place] [address]- 4331 January, [facility] [address] [id number] [place] [address]- 2306 Dec, [facility] [address] [id number] [place] [address]- 8758 Dec, [facility] [address] [id number] [place] [address]- 0257 Nov, [facility] [address] [id number] [place] [address]- 6652 Nov, [facility] [address] [id number] [place] [address]- 6495 Nov, [facility] [place] [facility] [address] [id number] [place] [address]- 4171 Nov, [facility] [place] [facility] [address] [id number] [place] [address]- 2049 Oct, [facility] [place] [facility] [address] [id number] [place] [address]- 0739 Oct, [facility] [place] [facility] [address] [id number] [place] [address]- 0027 Oct, [facility] [place] [facility] [address] [id number] [place] [address]- 3155 Oct, [facility] [place] [facility] [address] [id number] [place] [address]- 4032 16 Oct, 2012 [facility] [place] [facility] [address] [id number] [place] [address]- 5185 14 Oct, 2012 [facility] [address] [id number] [place] [address]- 8168 08 Oct, 2012 [facility] [place] [facility] [address] [id number] [place] [address]- 4044 07 Oct, 2012 [facility] [address] [id number] [place] [address]- 1426 03 Oct, 2012 [facility] [address] [id number] [place] [address]- 6818 30 Sep, 2012 [facility] [address] [id number] [place] [address]- 9671 Sep, [facility] [address] [id number] [place] [address]- 1394 Sep, [facility] [address] [id number] [place] [address]- 4354 Sep, [facility] [address] [id number] [place] [address]- 0943 Sep, [facility] [address] [id number] [place] [address]- 7586 Sep, [facility] [place] [facility] [address] [id number], [place] [address]- 1670 Sep, [facility] [place] [facility] [address] [id number] [place] [address]- 7923 Sep, [facility] [place] [facility] [address] [id number] [place] [address]- 1149 Aug, [facility] [place] [facility] [address] [id number] [place] [address]- 4235 Aug, [facility] [place] [facility] [address] [id number] [place] [address]- 4340 28 Aug, 2012 [facility] [place] [facility] [address] [id number] [place] [address]- 8816 Aug, [facility] [place] [facility] [address] [id number] [place] [address]- 1346 Aug, [facility] [place] [facility] [address] [id number] [place] [address]- 9443 Aug, [facility] [place] [facility] [address] [id number] [place] [address]- 6715 Aug, [facility] [place] [facility] [address] [id number] [place] [address]- 0979 Aug, [facility] [place] [facility] [address] [id number] [place] [address]- 7005 Jul, [facility] [place] [facility] [address] [id number] [place] [address]- 9820 Jul, [facility] [place] [facility] [address] [id number] [place] [address]- 2279 Jul, [facility] [place] [facility] [address] [id number] [place] [address]- 3809 Jul, [facility] [place] [facility] [address] [facility] [id number] [place] [address]- 9340 Jul, [facility] [place] [facility] [address] [id number] [place] [address]- 0693 Jul, [facility] [place] [facility] [address] [id number], [place] [address]- 3898 Jun, [facility] [place] [facility] [address] [id number] [place] [address]- 9723 Jun, [facility] [place] [facility] [address] [id number] [place] [address]- 9232 Jun, [facility] [place] [facility] [address] [id number], [place] [address]- 4080 Jun, [facility] [place] [facility] [address] [id number] [place] [address]- 7972 Jun, [facility] [place] [facility] [address] [id number] [place] [address]- 7155 Jun, [facility] [place] [facility] [address] [id number] [place] [address]- 4749 Jun, [facility] [place] [facility] [address] [id number] [place] [address]- 1458 Jun, [facility] [place] [facility] [address] [id number] [place] [address]- 9346 10 Jun, 2012 [facility] [place] [facility] [address] [id number] [place] [address]- 3578 26 May, 2012 [facility] [place] [facility] [address] [id number] [place] [address]- 6949 24 May, 2012 [facility] [place] [facility] [address] [id number] [place] [address]- 4965 18 May, 2012 [facility] [place] [facility] [address] [id number] [place] [address]- 6776 30 Apr, 2012 [facility] [place] [facility] [address] [id number] [place] [address]- 6492 29 Apr, 2012 [facility] [place] [facility] [address] [id number] [place] [address]- 1465 Apr, [facility] [place] [facility] [address] [id number] [place] [address]- 3620 14 Apr, 2012 [facility] [place] [facility] [address] [id number] [place] [address]- 4729 Apr, [facility] [place] [facility] [address] [id number] [place] [address]- 2679 Apr, [facility] [place] [facility] [address] [id number] [place] [address]- 3615 Mar, [facility] [place] [facility] [address] [id number] [place] [address]- 1196 Mar, [facility] [place] [facility] [address] [id number] [place] [address]- 8831 Mar, [facility] [place] [facility] [address] [id number] [place] [address]- 3406 Mar, [facility] [place] [facility] [address] [id number] [place] [address]- 3100 Feb, [facility] [place] [facility] [address] [id number] [place] [address]- 2985 Feb, [facility] [place] [facility] [address] [id number] [place] [address]- 4471 Feb, [facility] [place] [facility] [address] [id number] [place] [address]- 9387 Feb, [facility] [place] [facility] [address] [id number] [place] [address]- 5424 Feb, [facility] [place] [facility] [address] [id number] [place] [address]- 2190 January, [facility] [place] [facility] [address] [id number] [place] [address]- 8516 January, [facility] [place] [facility] [address] [id number] [place] [address]- 6423 January, [facility] [place] [facility] [address] [id number] [place] [address]- 5513 January, [facility] [place] [facility] [address] [id number] [place] [address]- 7387 January, [facility] [place] [facility] [address] [id number] [place] [address]- 4379 January, [facility] [place] [facility] [address] [id number] [place] [address]- 1538 Dec, [facility] [place] [facility] [address] [id number] [place] [address]- 2601 Dec, [facility] [place] [facility] [address] [id number] [place] [address]- 6510 17 Dec, 2011 [facility] [address] [id number] [place] [address]- 3216 09 Dec, 2011 [facility] [place] [facility] [address] [id number] [place] [address] 2546 06 Dec, 2011 [facility] [address] [id number] [place] [address]- 3816 27 Nov, 2011 [facility] [address] [id number] [place] [address]- 2879 14 Nov, 2011 [facility] [address] [id number] [place] [address]- 7188 Nov, [facility] [address] [facility] [id number] [place] [address]- 8336 07 Nov, 2011 [facility] [address] [id number] [place] [address]- 9783 29 Oct, 2011 [facility] [address] [id number] [place] [address]- 7310 28 Oct, 2011 [facility] [address] [id number] [place] [address]- 3620 24 Oct, 2011 [facility] [address] [id number] [place] [address]- 7494 13 Oct, 2011 [facility] [address] [facility] [id number] [place] [address]- 9146 08 Oct, 2011 [facility] [address] [id number] [place] [address]- 1808 Sep, [facility] [place] [facility] [address] [id number] [place] [address]- 3936 [address], [address] [facility] [place] [facility] [address] [facility] [id number] [place] [address]- 9646 Sep, [facility] [place] [facility] [address] [id number] [place] [address]- 9262 Sep, [facility] [place] [facility] [address] [id number] [place] [address]- 7374 Sep, [facility] [place] [facility] [address] [id number] [place] [address]- 5448 Sep, [facility] [place] [facility] [address] [id number] [place] [address]- 3113 Aug, [facility] [place] [facility] [address] [id number] [place] [address]- 9360 Aug, [facility] [place] [facility] [address] [id number] [place] [address]- 1514 Aug, [facility] [place] [facility] [address] [id number] [place] [address]- 1378 Jul, [facility] [place] [facility] [address] [id number] [place] [address]- 8226 Jul, [facility] [place] [facility] [address] [id number], [place] [address]- 4183 Jul, [facility] [place] [facility] [address] [id number] [place] [address]- 9089 Jul, [facility] [place] [facility] [address] [id number], [place] [address]- 4650 Jun, [facility] [place] [facility] [address] [id number], [place] [address]- 6250 Jun, [facility] [place] [facility] [address] [id number], [place] [address]- 3027 18 Jun, 2011 [facility] [place] [facility] [address] [id number] [place] [address]- 3180 Jun, [facility] [place] [facility] [address] [id number], [place] [address]- 6690 Jun, [facility] [place] [facility] [address] [id number], [place] [address]- 5578 Jun, [facility] [place] [facility] [address] [id number] [place] [address]- 9906 11 Mar, 2011 [facility] [address] [id number] [place] [address]- 8666 18 Dec, 2010 [facility] [place] [facility] [address] [id number] [place] [address] 2546 11 Dec, 2010 [facility] [address] [id number] [place] [address] 2546 18 Nov, 2010 [facility] [place] [facility] [address] [id number] [place] [address] 2546 16 Nov, 2010 [facility] [address] [id number] [place] [address]- 2602 10 Sep, 2010 [facility] [address] [id number] [place] [address]- 8136 31 Aug, 2010 [facility] [address] [id number] [place] [address]- 6966 29 Aug, 2010 [facility] [place] [facility] [address] [id number] [place] [address] 2544 29 Aug, 2010 [facility] [place] [facility] [address] [id number] [place] [address] 2546 29 Aug, 2010 [facility] [address] [facility] [id number] [place] [address] 2547 27 Aug, 2010 [facility] [place] [facility] [address] [id number] [place] [address] 2546 14 Aug, 2010 [facility] [place] [facility] [address] [id number] [place] [address] 2546 08 Aug, 2010 [facility] [place] [facility] [address] [id number] [place] [address] 2546 08 Aug, 2010 [facility] [place] [facility] [address] [id number] [place] [address] 2546 07 Aug, 2010 [facility] [place] [facility] [address] [id number] [place] [address] 2540 Aug, [facility] [place] [facility] [address] [id number] [place] [address]- 9716 Aug, [facility] [place] [facility] [address] [id number] [place] [address]- 6166 Aug, [facility] [place] [facility] [address] [id number] [place] [address]- 4071 Jul, [facility] [place] [facility] [address] [id number] [place] [address], [place] [address]- 6462 Jul, [facility] [place] [facility] [address] [id number] [place] 8115 Jul, [facility] [place] [facility] [address] [id number] [place] [address]- 1117 Jul, [facility] [place] [facility] [address] [id number] [place] [address]- 9922 Jul, [facility] [place] [facility] [address] [id number] [place] [address] Jul, [facility] [place] [facility] [address] [id number] [place] [address] Jun, [facility] [place] [facility] [address] [id number] [place] [address] Jun, [facility] [place] [facility] [address] [id number] [place] [address] Jun, [facility] [place] [facility] [address] [id number], [place] [address] Jun, [facility] [place] [facility] [address] [id number] [place] [address] Apr, [facility] [place] [facility] [address] [id number] [place] [address] Mar, [facility] [place] [facility] [address] [id number] [place] [address] Feb, [facility] [place] [facility] [address] [id number], [place] [address] January, [facility] [place] [facility] [address] [id number] [place] [address] 15 Dec, 2009 [facility] [place] [facility] [address] [id number], [place] [address] Nov, [facility] [place] [facility] [address] [id number] [place] [address] Aug, [facility] [place] [facility] [address] [id number], [place] [address] Aug, [facility] [place] [facility] [address] [id number] [place] [address] Aug, [facility] [place] [facility] [address] [id number], [place] [address] Jul, [facility] [place] [facility] [address] [id number], [place] [address] Jul, [facility] [place] [facility] [address] [id number], [place] [address] Jul, [facility] [place] [facility] [address] [id number], [place] [address] 30 Jun, 2009 [facility] [place] [facility] [address] [id number], [place] [address] 29 Jun, 2009 [facility] [place] [facility] [address] [id number], [place] [address] Jun, [facility] [place] [facility] [address] [id number], [place] [address] Jun, [facility] [place] [facility] [address] [id number], [place] [address] Jun, [facility] [place] [facility] [address] [id number], [place] [address] Jun, [facility] [place] [facility] [address] [id number], [place] [address] Apr, [facility] [place] [facility] [address] [facility] [id number] [place] [address] Apr, [facility] [address] [facility] [id number], [place] [address] Feb, [facility] [address] [facility] [id number] [place] [address] January, [facility] [address] [facility] [id number], [place] [address] Dec, IMMUNIZATIONS No Known Immunizations SOCIAL HISTORY Never Assessed REASON FOR VISIT f/u, Depression. PLAN OF CARE Activity Details Follow Up 1 Week Reason:depression VITAL SIGNS MEDICATIONS Unknown Medications RESULTS No Results PROCEDURES Procedure Date Ordered Result Body Site [facility] VISIT MENTAL HEALTH ESTAB PT Jun 07, 2017 Psychotherapy, patient &/family, 45 minutes, established patient Jun 07, 2017 INSTRUCTIONS MEDICATIONS ADMINISTERED No Known Medications MEDICAL (GENERAL) HISTORY Type Description Date Medical History type II diabetes Medical History coronary artery disease stress test 01/5015 Medical History chronic obstructive pulmonary disease (COPD) Medical History gastroesophageal reflux disease (GERD) Medical History acute renal failure Medical History erectile dysfunction Medical History hyperlipidemia Medical History obesity Medical History skin cancer-basal cell R moravian (removed) Medical History Arthritis Medical History degenerative [...] 2009 Surgical History colonoscopy 2009 ([facility]), 2013 ([facility]) Surgical History heart 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 04/2014 Surgical History carotid US 05/2014 Surgical History resection of skin cancer from Right moravian Surgical History Biopsy of Lung Bilateral/Left lung lymph node 09/2016 Surgical History Bone Marrow Biopsy Surgical History port in the right chest wall 12/2016 Hospitalization History [facility] low potassium, low magnesium, chest painina 01/2015 Hospitalization History inability to urinate 09/16/[address] [facility] early 2000's Hospitalization History hyperkalemia 10/2017 Hospitalization History fluid in lung
--- OUTSIDE RECORDS SUMMARY | 2018-08-08 13:27 | XMS REPORT ---
Author Author ROSELINE LUIS Organization [facility] Address [address] [place] [address] Care Team Providers Care Legislative Correspondent Name Role Phone ROSELINE LUIS Unavailable PROBLEMS Type Condition ICD9-CM Code QII32-RE Code Onset Dates Condition Status SNOMED Code Problem Chronic lymphocytic leukemia C91.10 Active 30736767 Problem Insomnia, unspecified type G47.00 Active 386376519 Problem Lymphocytosis D72.820 Active 10512470 Problem Anxiety F41.9 Active 51005698 Problem Eye exam abnormal R93.8 Active 307994713 Problem Morbid obesity E66.01 Active 671848854 Problem Diabetic polyneuropathy associated with type 2 diabetes mellitus E11.42 Active 74312507 Problem Essential hypertension I10 Active 46320252 Problem Falling R29.6 Active 604179940 Problem 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 Active 646884131 Problem Cough R05 Active 80240162 Problem Dysuria R30.0 Active 36846085 Problem Eustachian tube dysfunction, unspecified laterality H69.80 Active 32346531 Problem Bilateral primary osteoarthritis of knee M17.0 Active 091240849 Problem Polyneuropathy associated with underlying disease G63 Active 785714035 Problem Anemia of chronic illness D63.8 Active 343797677 Problem Retinal edema H35.81 Active 0984752 Problem DM neuro manif type II E11.49 Active 19275394 Problem Diabetes E11.9 Active 64995220 Problem Hypokalemia E87.6 Active 04554944 Problem Benign prostatic hyperplasia with lower urinary tract symptoms, unspecified morphology N40.1 Active 557231349 Problem Reactive airway disease J45.909 Active 622637114084 Problem Bipolar I disorder, most recent episode (or current) mixed, moderate F31.62 Active 34538491 Problem Chronic pain G89.29 Active 89931103 Problem Leukocytosis D72.829 Active 211084977 ALLERGIES No Information ENCOUNTERS Encounter Location Date Diagnosis [facility] [id number] [address] Dec, [facility] [id number] [place] [address] 75125- 0813 Dec, [facility] [id number] [place] [address] 45770- 6917 Dec, [facility] [id number] [place] [address] 61598- 5405 Nov, Bipolar I disorder, most recent episode (or current) mixed, moderate F31.62 [facility] [id number] [place] [address] 89316- 7080 Nov, Chronic pain G89.29 [facility] [id number] [place] [address] 34066- 8439 Nov, Bipolar I disorder, most recent episode (or current) mixed, moderate F31.62 [facility] [id number] [place] [address] 55599- 6530 Nov, Hypokalemia E87.6 [facility] [id number] [place] [address] 43756- 9934 Nov, Bipolar I disorder, most recent episode (or current) mixed, moderate F31.62 [facility] [id number] [place] [address] 38559- 9944 Oct, Chronic pain G89.29 [facility] [id number] [place] [address] 40227- 7780 Oct, BMI 50.0-59.9, adult Z68.43 and Bipolar I disorder, most recent episode (or current) mixed, moderate F31.62 [facility] [id number] [place] [address] 13525- 1488 Oct, Bipolar I disorder, most recent episode (or current) mixed, moderate F31.62 [facility] [id number] [place] [address] 06526- 9990 Oct, [facility] [id number] [place] [address] 81494- 1071 Oct, Hypokalemia E87.6 [facility] [address] 98113- 5490 Oct, DM neuro manif type II E11.49 [facility] [address] 62444- 6320 Oct, Bipolar I disorder, most recent episode (or current) mixed, moderate F31.62 [facility] [address] 08158- 6968 Oct, Bipolar I disorder, most recent episode (or current) mixed, moderate F31.62 [facility] [id number] [place] [address] 92065- 2523 Oct, Hyperkalemia E87.5 ; Falling R29.6 ; BMI 50.0-59.9, adult Z68.43 and Acute left ankle pain M25.572 [facility] [address] 29568- 3033 Oct, DM neuro manif type II E11.49 [facility] [id number] [place] [address] 46989- 8949 Oct, [facility] [id number] [place] [address] 79902- 0304 Sep, Chronic pain G89.29 [facility] [id number] [place] [address] 18669- 0499 Sep, [facility] [address] 01992- 8930 Sep, Bilateral primary osteoarthritis of knee M17.0 [facility] [id number] [place] [address] 41350- 1425 Sep, Generalized edema R60.1 [facility] [address] 73339- 3844 Sep, Bipolar I disorder, most recent episode (or current) mixed, moderate F31.62 [facility] [id number] [place] [address] 96632- 5462 15 Sep, 2017 Hypoxia R09.02 ; Other hypervolemia E87.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 ; Anemia of chronic illness D63.8 and BMI 50.0- 59.9, adult Z68.43 [facility] [id number] [place] [address] 62683- 4601 Sep, [facility] [address] 49452- 9210 Sep, Bipolar I disorder, most recent episode (or current) mixed, moderate F31.62 [facility] [address] 13092- 0452 Aug, Chronic pain G89.29 [facility] [id number] [place] [address] 11295- 4597 Aug, Generalized edema R60.1 [facility] [id number] [place] [address] 43959- 6761 Aug, [facility] [id number] [place] [address] 25993- 7516 Aug, [facility] [id number] [place] [address] 17871- 1292 14 Aug, 2017 Bipolar I disorder, most recent episode (or current) mixed, moderate F31.62 [facility] [id number] [place] [address] 47463- 2109 07 Aug, 2017 Bipolar I disorder, most recent episode (or current) mixed, moderate F31.62 [facility] [id number] [place] [address] 76833- 5708 04 Aug, 2017 Chronic pain G89.29 [facility] [address] [address] 4724 Jul, Bipolar I disorder, most recent episode (or current) mixed, moderate F31.62 [facility] [id number] [place] [address] 98636- 2071 Jul, Bipolar I disorder, most recent episode (or current) mixed, moderate F31.62 and BMI 60.0-69.9, adult Z68.44 [facility] [id number] [place] [address] 518341- 2069 Jul, Bipolar I disorder, most recent episode (or current) mixed, moderate F31.62 [facility] [id number] [place] [address] 82039- 1099 Jul, Chronic pain G89.29 [facility] [id number] [place] [address] 54690- 5473 Jul, Bipolar I disorder, most recent episode (or current) mixed, moderate F31.62 [facility] [id number] [place] [address] 19617- 2667 Jun, Polyneuropathy associated with underlying disease G63 and Diabetes E11.9 [facility] [id number] [place] [address] 38905- 9594 Jun, Bipolar I disorder, most recent episode (or current) mixed, moderate F31.62 [facility] [id number] [place] [address] 09588- 5762 Jun, Chronic pain G89.29 [facility] [id number] [place] [address] 27484- 1988 May, Bipolar I disorder, most recent episode (or current) mixed, moderate F31.62 [facility] [address] [place] [address] 64169- 5159 May, Bipolar I disorder, most recent episode (or current) mixed, moderate F31.62 [facility] [id number] [place] [address] 27995- 3557 20 May, 2017 Diabetic polyneuropathy associated with type 2 diabetes mellitus E11.42 [facility] [id number] [place] [address] 450268- 6364 18 May, 2017 Bipolar I disorder, most recent episode (or current) mixed, moderate F31.62 [facility] [id number] [place] [address] 58067- 1047 13 May, 2017 Bipolar I disorder, most recent episode (or current) mixed, moderate F31.62 [facility] [id number] [place] [address] 78111- 6592 12 May, 2017 Chronic pain G89.29 [facility] [id number] [place] [address] 11744- 5305 30 Apr, 2017 Bipolar I disorder, most recent episode (or current) mixed, moderate F31.62 [facility] [id number] [place] [address] 32842- 9432 Apr, [facility] [id number] [place] [address] 35093- 0332 Apr, Chronic pain G89.29 and DM neuro manif type II E11.49 [facility] [id number] [place] [address] 01512- 6431 Apr, [facility] [id number] [place] [address] 31493- 1495 16 Apr, 2017 Bipolar I disorder, most recent episode (or current) mixed, moderate F31.62 [facility] [id number] [place] [address] 62644- 7815 14 Apr, 2017 Chronic pain G89.29 [facility] [id number] [place] [address] 27723- 1177 03 Apr, 2017 Iliotibial band syndrome, left M76.32 [facility] [id number] [place] [address] 41374- 3053 Apr, Bipolar I disorder, most recent episode (or current) mixed, moderate F31.62 [facility] [address], [place] [address]- 0471 Mar, Bipolar I disorder, most recent episode (or current) mixed, moderate F31.62 [facility] [id number] [place] [address] 26005- 4499 Mar, Bipolar I disorder, most recent episode (or current) mixed, moderate F31.62 [facility] [id number] [place] [address] 55870- 6588 Mar, [facility] [id number] [place] [address] 41737- 2119 Mar, Bipolar I disorder, most recent episode (or current) mixed, moderate F31.62 [facility] [id number] [place] [address] 09730- 6619 Mar, Chronic pain G89.29 [facility] [id number] [place] [address] 45940- 8519 Mar, Bipolar I disorder, most recent episode (or current) mixed, moderate F31.62 [facility] [id number] [place] [address] 92088- 6306 Mar, Bipolar I disorder, most recent episode (or current) mixed, moderate F31.62 [facility] [address] [place] [address] 90100- 3707 Mar, Acute pain of left knee M25.562 ; Left hip pain M25.552 ; Generalized edema R60.1 and Tongue swelling R22.0 [facility] [address] [place] [address] 54619- 5835 Mar, [facility] [id number] [place] [address] 52376- 7775 Feb, Chronic pain G89.29 [facility] [id number] [place] [address] 60094- 2886 Feb, Diabetes E11.9 [facility] [address], [place] [address]- 4215 January, Chronic pain G89.29 [facility] [id number] [place] [address] 72221- 2590 January, [facility] [address] [place] [address] 85665- 6377 January, Bipolar I disorder, most recent episode (or current) mixed, moderate F31.62 [facility] [id number] [place] [address] 50982- 9444 Dec, Bipolar I disorder, most recent episode (or current) mixed, moderate F31.62 [facility] [id number] [place] [address] 45443- 4299 Dec, Chronic pain G89.29 [facility] [id number] [place] [address] 22502- 1905 Dec, Bipolar I disorder, most recent episode (or current) mixed, moderate F31.62 [facility] [address] [place] [address] 30125- 5455 Dec, Diabetes E11.9 ; Essential hypertension I10 ; Chronic pain G89.29 and Morbid obesity E66.01 [facility] [address] [place] [address] 80885- 9718 Dec, [facility] [id number] [place] [address] 60100- 1082 Dec, Bipolar I disorder, most recent episode (or current) mixed, moderate F31.62 [facility] [address] [place] [address] 06279- 5033 Dec, Bipolar I disorder, most recent episode (or current) mixed, moderate F31.62 [facility] [address] [place] [address] 75324- 1653 Nov, Chronic pain G89.29 [facility] [id number] [place] [address] 38423- 7991 Nov, Bipolar I disorder, most recent episode (or current) mixed, moderate F31.62 [facility] [address], [place] [address]- 6664 Nov, [facility] [address], [place] [address]- 2148 Nov, Bipolar I disorder, most recent episode (or current) mixed, moderate F31.62 [facility] [address] [place] [address] 16996- 8834 Nov, Bipolar I disorder, most recent episode (or current) mixed, moderate F31.62 [facility] [address] [place] [address] 45391- 7024 Nov, [facility] [id number] [place] [address] 18204- 3854 Nov, [facility] [address] [place] [address] 15631- 4229 Nov, [facility] [address] [place] [address] 19858- 8205 Oct, Chronic pain G89.29 [facility] [address] [place] [address] 65049- 4263 Oct, Bipolar I disorder, most recent episode (or current) mixed, moderate F31.62 [facility] [address] [address]- 7954 Oct, [facility] [address] [place] [address] 28711- 6427 Oct, Chronic pain G89.29 ; Diabetes E11.9 ; Anxiety F41.9 and 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 [facility] [address] [address]- 9860 Oct, [facility] [id number] [place] [address] 2546 Oct, Diabetes E11.9 [facility] [address] [address] 0586 Oct, Bipolar I disorder, most recent episode (or current) mixed, moderate F31.62 [facility] [address] [place] [address] 03647- 8606 Sep, Chronic pain G89.29 [facility] [id number] [place] [address] 58744- 8356 Sep, Chronic pain G89.29 [facility] [id number] [place] [address] 530159- 5566 Aug, Chronic pain G89.29 [facility] [id number] [place] [address] 62727- 3956 Jul, [facility] [id number] [place] [address] 92207- 1506 Jul, Diabetes E11.9 [facility] [address] [place] [address] 93529- 7647 Jul, Chronic pain G89.29 [facility] [address] [place] [address] 79281- 5456 Jul, Bipolar I disorder, most recent episode (or current) mixed, moderate F31.62 [facility] [address], [place] [address]- 3177 Jun, Bipolar I disorder, most recent episode (or current) mixed, moderate F31.62 [facility] [address] [address]- 7326 Jun, [facility] [id number] [place] [address] 29075- 3704 Jun, Bipolar I disorder, most recent episode (or current) mixed, moderate F31.62 [facility] [address], [place] [address]- 4598 May, Insomnia, unspecified type G47.00 [facility] [id number] [place] [address] 80427- 7866 May, Bipolar I disorder, most recent episode (or current) mixed, moderate F31.62 [facility] [id number] [place] [address] 53519- 0530 14 May, 2016 [facility] [address] 32376- 8098 May, Bipolar I disorder, most recent episode (or current) mixed, moderate F31.62 [facility] [id number] [place] [address] 92576- 6410 May, Diabetes E11.9 and Essential hypertension I10 [facility] [id number] [place] [address] 50408- 7552 Apr, Chronic pain G89.29 [facility] [id number] [place] [address] 65271- 9232 Apr, Bipolar I disorder, most recent episode (or current) mixed, moderate F31.62 [facility] [id number] [place] [address] 84006- 8990 Apr, [facility] [id number] [place] [address] 86604- 5722 Apr, [facility] [id number] [place] [address] 47865- 9543 Mar, Chronic pain G89.29 ; Headache, unspecified headache type R51 ; Neuropathy G62.9 ; Pain of right hip joint M25.551 and Essential hypertension I10 [facility] [id number] [place] [address] 66940- 0548 Mar, Chronic pain G89.29 [facility] [id number] [place] [address] 54273- 7834 Mar, Bipolar I disorder, most recent episode (or current) mixed, moderate F31.62 [facility] [id number] [place] [address] 21501- 9529 Feb, Bipolar I disorder, most recent episode (or current) mixed, moderate F31.62 and Insomnia, unspecified type G47.00 [facility] [id number] [place] [address] 78779- 5571 Feb, Chronic pain G89.29 [facility] [id number] [place] [address] 93444- 9300 Feb, Bipolar I disorder, most recent episode (or current) mixed, moderate F31.62 [facility] [id number] [place] [address] 96907- 6777 January, Bipolar I disorder, most recent episode (or current) mixed, moderate F31.62 [facility] [id number] [place] [address] 17019- 3770 January, Chronic pain G89.29 [facility] [id number] [place] [address] 72504- 7940 January, Chronic pain G89.29 and Essential hypertension I10 [facility] [id number] [place] [address] 53970- 9997 January, Bipolar I disorder, most recent episode (or current) mixed, moderate F31.62 [facility] [id number] [place] [address] 67882- 9597 Dec, [facility] [id number] [place] [address] 75205- 6994 Dec, [facility] [id number] [place] [address] 72369- 8724 Dec, [facility] [id number] [place] [address] 21465- 5036 Dec, [facility] [id number] [place] [address] 61663- 4755 Nov, Reactive airway disease J45.909 [facility] [id number] [place] [address] 65065- 4161 Nov, [facility] [address] 30781- 2464 Nov, [facility] [id number] [place] [address] 31550- 9623 Nov, [facility] [address] 16618- 2357 Nov, [facility] [id number] [place] [address] 74186- 5770 Nov, Onychomycosis B35.1 ; Hammertoe M20.40 ; [place] or callus L84 and DM neuro manif type II E11.49 [facility] [id number] [place] [address] 73082- 1090 Nov, Chronic pain G89.29 ; Leukocytosis D72.829 and Diabetes E11.9 [facility] [id number] [place] [address] 28569- 0566 Nov, [facility] [id number] [place] [address] 63987- 1620 Oct, Bronchitis J40 [facility] [id number] [place] [address] 97976- 8263 Oct, [facility] [id number] [place] [address] 66029- 1908 Oct, [facility] [id number] [place] [address] 88932- 7742 Oct, Mastoiditis, unspecified laterality H70.90 and Type 2 diabetes mellitus with complication E11.8 [facility] [id number] [place] [address] 06205- 1877 Sep, [facility] [id number] [place] [address] 18553- 7894 Sep, Dysuria R30.0 ; Cough R05 ; Benign prostatic hyperplasia with lower urinary tract symptoms, unspecified morphology N40.1 ; Hypokalemia E87.6 and Eustachian tube dysfunction, unspecified laterality H69.80 [facility] [id number] [place] [address] 87802- 0564 Sep, Moderate mixed bipolar I disorder F31.62 [facility] [id number] [place] [address] 25518- 3454 Sep, Hypokalemia E87.6 [facility] [address] 58484- 4846 Sep, [facility] [address] 95185- 7918 Sep, Upper respiratory tract infection, unspecified type J06.9 [facility] [id number] [place] [address] 50536- 0750 Aug, [facility] [address] 17507- 5537 Aug, Dysuria R30.0 [facility] [id number] [place] [address] 51230- 0816 Aug, [facility] [id number] [place] [address] 62734- 1475 Jul, [facility] [id number] [place] [address] [id number]- [id number] Jul, [facility] [id number] [place] [address] [id number]- [id number] Jul, [facility] [id number] [place] [address] [id number]- [id number] Jul, [facility] [id number] [place] [address] [id number]- [id number] Jun, [facility] [id number] [place] [address] [id number]- [id number] Jun, [facility] [address] [address] [address] Jun, [facility] [id number] [place] [id number]- [id number] May, [facility] [id number] [place] [address] [id number]- 5629 May, Bipolar I disorder, most recent episode (or current) mixed, moderate 296.62 [facility] [id number] [place] [address] 69547- [phone] May, [facility] [id number] [place] [address] [id number]- [address] May, Bipolar I disorder, most recent episode (or current) mixed, moderate 296.62 and Major depressive disorder, recurrent episode, severe, specified as with psychotic behavior 296.34 [facility] [id number] [place] [address] 63670- 4992 May, Bipolar I disorder, most recent episode (or current) mixed, moderate 296.62 [facility] [id number] [place] [address] 23723- 2829 May, [facility] [id number] [place] [address] 89847- 7502 Apr, [facility] [id number] [place] [address] 35523- 1931 Apr, [facility] [id number] [place] [address] 90806- 1042 Apr, Unspecified disorder of kidney and ureter 593.9 and Diabetes mellitus type 2, uncontrolled 250.02 [facility] [id number] [place] [address] 16741- 6619 Apr, [facility] [id number] [place] [address] 72147- 6391 Apr, [facility] [id number] [place] [address] 22387- 8923 Apr, [facility] [address] [address] 8986 Apr, [facility] [id number] [place] [address] 41738- 9525 Apr, Diabetes mellitus type II, uncontrolled 250.02 [facility] [address] [address]- 7723 Apr, [facility] [id number] [place] [address] 54072- 4631 Mar, [facility] [id number] [place] [address] 59241- 9603 Mar, [facility] [id number] [place] [address] 33308- 8463 Mar, [facility] [id number] [place] [address] 23601- 2603 Mar, Major depressive disorder, recurrent episode, severe, specified as with psychotic behavior 296.34 and Bipolar I disorder, most recent episode (or current) mixed, moderate 296.62 [facility] [id number] [place] [address] 25502- 9222 Mar, Diabetes 250.00 ; Anuria 788.5 ; Nausea and vomiting 787.01 and Diarrhea 787.91 [facility] [address] [address]- 8126 Mar, Diabetes 250.00 [facility] [id number] [place] [address] 09494- 4092 Mar, [facility] [address] [address]- 9198 Mar, Diabetes 250.00 [facility] [id number] [place] [address] 40022- 3696 Mar, [facility] [address] [address]- 6648 Mar, [facility] [id number] [address]- 2278 Mar, [facility] [id number] [place] [address] 75381- 0391 Mar, [facility] [id number] [place] [address] 16180- 6205 Mar, Bipolar I disorder, most recent episode (or current) mixed, moderate 296.62 and Major depressive disorder, recurrent episode, severe, specified as with psychotic behavior 296.34 [facility] [id number] [place] [address] 49408- 9484 Mar, Magnesium deficiency 275.2 ; Hypokalemia 276.8 ; Nausea & vomiting 787.01 and Diabetes mellitus type 2, uncontrolled 250.02 [facility] [id number] [place] [address] 37404- 7963 Feb, [facility] [id number] [place] [address] 31014- 7493 Feb, Bipolar I disorder, most recent episode (or current) mixed, moderate 296.62 [facility] [id number] [place] [address] 24739- 8805 Feb, Nausea and vomiting 787.01 ; Left elbow pain 719.42 ; Anuria 788.5 and Diabetes 250.00 [facility] [id number] [place] [address] 74992- 3295 Feb, [facility] [id number] [place] [address] 10340- 0151 Feb, Hypopotassemia 276.8 and Hypokalemia 276.8 [facility] [id number] [place] [address] 47249- 8033 Feb, Hypopotassemia 276.8 and Hypokalemia 276.8 [facility] [id number] [place] [address] 52179- 6133 Feb, Seborrheic keratoses 702.19 [facility] [id number] [address]- 0223 Feb, Hypopotassemia 276.8 and Low magnesium levels 275.2 [facility] [address], [place] [address]- 1602 January, [facility] [address] [address]- 1659 January, [facility] [id number] [place] [address] 65185- 5228 January, [facility] [id number] [place] [address] 36169- 1866 January, Scalp lesion 709.9 [facility] [id number] [place] [address] 07904- 7928 January, [facility] [id number] [place] [address] 38365- 2716 Dec, Tear of medial cartilage or meniscus of knee, current 836.0 and 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 [facility] [address] [address]- 3886 Dec, [facility] [address] [address]- 5539 Dec, [facility] [address] [address]- 3961 Dec, Squamous cell carcinoma, 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 [facility] [address] [address]- 1818 Dec, [facility] [address] [address]- 4963 Dec, [facility] [address] 1334 Nov, [facility] [address] [address]- 5657 Nov, [facility] [id number] [address]- 0213 Nov, [facility] [place] [facility] [address] [id number] [place] [address]- 5495 Nov, [facility] [place] [facility] [address] [id number] [place] [address]- 0612 Nov, 2014 [facility] [place] [facility] [address] [id number] [place] [address]- 9825 Nov, 2014 [facility] [place] [facility] [address] [id number] [place] [address]- 8218 Nov, [facility] [place] [facility] [address] [id number] [place] [address]- 5289 Nov, [facility] [place] [facility] [address] [id number] [place] [address]- 9550 Nov, [facility] [place] [facility] [address] [id number] [place] [address]- 8555 Nov, [facility] [place] [facility] [address] [id number] [place] [address]- 0984 Nov, [facility] [place] [facility] [address] [id number] [place] [address]- 1739 Nov, [facility] [place] [facility] [address] [facility] [id number] [place] [address]- 9045 Oct, 2014 [facility] [place] [facility] [address] [id number] [place] [address]- 2064 Oct, 2014 [facility] [place] [facility] [address] [id number] [place] [address]- 6224 Oct, 2014 [facility] [place] [facility] [address] [id number] [place] [address]- 9483 Oct, 2014 [facility] [place] [facility] [address] [facility] [id number] [place] [address]- 9693 Oct, 2014 [facility] [place] [facility] [address] [id number] [place] [address]- 8471 Oct, [facility] [place] [facility] [address] [id number] [place] [address]- 4907 Oct, [facility] [place] [facility] [address] [id number] [place] [address]- 3377 Oct, [facility] [place] [facility] [address] [id number] [place] [address]- 7519 Oct, [facility] [place] [facility] [address] [id number] [place] [address]- 0315 Sep, [facility] [place] [facility] [address] [id number] [place] [address]- 4885 Sep, [facility] [place] [facility] [address] [id number] [place] [address]- 8183 Sep, [facility] [place] [facility] [address] [id number] [place] [address]- 3594 Sep, [facility] [place] [facility] [address] [id number] [place] [address]- 6487 Sep, [facility] [place] [facility] [address] [id number] [place] [address]- 0921 Sep, [facility] [place] [facility] [address] [id number] [place] [address]- 5996 Sep, [facility] [place] [facility] [address] [id number] [address]- 4765 Sep, [facility] [place] [facility] [address] [id number] [address]- 5259 Sep, [facility] [place] [facility] [address] [id number] [place] [address]- 5959 Sep, [facility] [place] [facility] [address] [id number] [place] [address]- 7982 Sep, [facility] [place] [facility] [address] [id number] [place] [address]- 3371 Sep, [facility] [place] [facility] [address] [id number] [place] [address]- 4851 Sep, [facility] [address] [id number] [place] [address]- 9489 Sep, [facility] [address] [id number] [place] [address]- 9810 Sep, [facility] [address] [id number] [place] [address]- 1763 Sep, [facility] [address] [id number] [place] [address]- 5713 Aug, [facility] [address] [id number] [place] [address]- 7416 Aug, [facility] [address] [id number] [place] [address]- 0190 Aug, [facility] [address] [id number] [place] [address]- 5657 Aug, [facility] [address] [id number] [place] [address]- 3055 Aug, [facility] [address] [id number] [place] [address]- 4830 Aug, [facility] [address] [id number] [place] [address]- 6548 Aug, [facility] [address] [id number] [place] [address]- 3028 Aug, [facility] [address] [id number] [place] [address]- 1486 Aug, [facility] [address] [id number] [place] [address]- 0777 Aug, [facility] [address] [id number] [place] [address]- 2118 Aug, [facility] [address] [place] [id number] 10 Aug, 2014 [facility] [place] [facility] [address] [id number] [place] [address]- 5913 10 Aug, 2014 [facility] [place] [facility] [address] [id number] [place] [address]- 0126 Aug, [facility] [place] [facility] [address] [id number] [place] [address]- 8046 Aug, [facility] [place] [facility] [address] [id number] [place] [address]- 0426 Aug, [facility] [place] [facility] [address] [id number] [place] [address]- 3915 Aug, [facility] [place] [facility] [address] [id number] [place] [address]- 6871 Aug, [facility] [place] [facility] [address] [id number] [place] [address]- 0506 Aug, [facility] [place] [facility] [address] [id number] [place] [address]- 3208 Aug, [facility] [place] [facility] [address] [id number] [place] [address]- 4614 Aug, [facility] [place] [facility] [address] [id number] [place] [address]- 0861 Aug, [facility] [place] [facility] [address] [id number] [place] [address]- 4842 Aug, [facility] [place] [facility] [address] [id number] [place] [address]- 4655 Aug, [facility] [place] [facility] [address] [id number] [place] [address]- 2941 Aug, [facility] [place] [facility] [address] [id number] [place] [address]- 7966 Aug, [facility] [place] [facility] [address] [id number] [place] 6375 Aug, [facility] [place] [facility] [address] [id number] [place] [address]- 4480 Aug, [facility] [place] [facility] [address] [id number] [place] 9208 Aug, [facility] [place] [facility] [address] [id number] [place] [address]- 9912 Aug, [facility] [place] [facility] [address] [id number] [place] 1606 Jul, [facility] [place] [facility] [address] [id number] [place] [address]- 0424 Jul, [facility] [place] [facility] [address] [id number] [place] [address]- 6849 Jul, [facility] [place] [facility] [address] [id number] [place] [address]- 0941 Jul, [facility] [place] [facility] [address] [id number] [place] [address]- 0264 Jul, [facility] [place] [facility] [address] [id number] [place] [address]- 4266 Jul, [facility] [place] [facility] [address] [id number] [place] [address]- 9653 Jul, [facility] [place] [facility] [address] [id number] [place] [address]- 3511 Jul, [facility] [place] [facility] [address] [id number] [address]- 2476 Jul, [facility] [place] [facility] [address] [id number], [place] [address]- 5259 Jul, [facility] [place] [facility] [address] [id number] [place] [address]- 5947 Jun, [facility] [place] [facility] [address] [id number] [place] [address]- 7620 Jun, [facility] [place] [facility] [address] [id number] [address]- 1652 Jun, [facility] [place] [facility] [address] [id number] [place] [address]- 0423 16 Jun, 2014 [facility] [place] [facility] [address] [id number] [place] [address]- 2424 15 Jun, 2014 [facility] [place] [facility] [address] [id number] [place] [address]- 0796 15 Jun, 2014 [facility] [place] [facility] [address] [id number] [place] [address]- 3038 05 Jun, 2014 [facility] [place] [facility] [address] [id number] [place] [address]- 7629 05 Jun, 2014 [facility] [place] [facility] [address] [id number] [place] [address]- 9142 Jun, [facility] [place] [facility] [address] [id number] [place] [address]- 1049 Jun, [facility] [place] [facility] [address] [id number] [place] [address]- 4149 29 Sep, 2013 [facility] [place] [facility] [address] [id number] [place] [address]- 2543 29 Sep, 2013 [facility] [place] [facility] [address] [id number] [place] [address] 2541 26 Sep, 2013 [facility] [place] [facility] [address] [id number] [place] [address]- 2544 26 Sep, 2013 [facility] [place] [facility] [address] [id number] [place] [address] 2546 17 Sep, 2013 [facility] [place] [facility] [address] [id number] [place] [address] 2543 17 Sep, 2013 [facility] [place] [facility] [address] [id number] [place] [address] 2549 15 Sep, 2013 [facility] [place] [facility] [address] [id number] [place] [address]- 2546 15 Sep, 2013 [facility] [place] [facility] [address] [id number] [place] [address]- 2540 15 Sep, 2013 [facility] [place] [facility] [address] [id number] [place] [address]- 7402 15 May, 2013 [facility] [place] [facility] [address] [id number] [place] [address]- 6005 10 May, 2013 [facility] [place] [facility] [address] [id number] [place] [address]- 1008 10 May, 2013 [facility] [place] [facility] [address] [id number] [place] [address]- 7325 May, 2013 [facility] [place] [facility] [address] [id number] [place] [address]- 7435 May, 2013 [facility] [place] [facility] [address] [id number] [place] [address]- 0709 May, 2013 [facility] [place] [facility] [address] [id number] [place] [address]- 1104 May, 2013 [facility] [place] [facility] [address] [id number] [place] [address]- 3846 Apr, [facility] [place] [facility] [address] [id number] [place] [address]- 9449 Apr, [facility] [place] [facility] [address] [id number] [place] [address]- 1734 Apr, [facility] [place] [facility] [address] [id number] [place] [address]- 8344 Apr, [facility] [place] [facility] [address] [id number] [place] [address]- 6644 Apr, [facility] [place] [facility] [address] [id number] [place] [address]- 8881 Apr, [facility] [place] [facility] [address] [id number] [place] [address]- 2713 Apr, [facility] [place] [facility] [address] [id number] [place] [address]- 2102 Apr, [facility] [place] [facility] [address] [id number] [place] [address]- 7363 Apr, [facility] [place] [facility] [address] [id number] [place] [address]- 4842 Apr, [facility] [place] [facility] [address] [id number] [place] [address]- 5135 Apr, [facility] [place] [facility] [address] [id number] [place] [address]- 2896 Apr, [facility] [place] [facility] [address] [id number] [place] [address]- 0594 Apr, [facility] [place] [facility] [address] [id number] [place] [address]- 4645 Apr, [facility] [place] [facility] [address] [id number] [place] [address]- 9855 Apr, [facility] [place] [facility] [address] [id number] [place] [address]- 1152 Mar, [facility] [place] [facility] [address] [id number] [place] [address]- 5460 Mar, [facility] [place] [facility] [address] [id number] [place] [address]- 0614 Mar, [facility] [place] [facility] [address] [id number] [place] [address]- 2467 Mar, [facility] [place] [facility] [address] [id number] [place] [address]- 7980 Mar, [facility] [place] [facility] [address] [id number] [place] [address]- 6188 Mar, [facility] [place] [facility] [address] [id number] [place] [address]- 0219 Mar, [facility] [place] [facility] [address] [id number] [place] [address]- 4288 Mar, [facility] [place] [facility] [address] [id number] [place] [address]- 8671 Mar, [facility] [place] [facility] [address] [id number] [place] [address]- 1915 Mar, 2013 [facility] [place] [facility] [address] [id number] [place] [address]- 6400 Mar, 2013 [facility] [place] [facility] [address] [id number] [place] 8596 Mar, 2013 [facility] [place] [facility] [address] [id number] [place] [address]- 7883 Mar, 2013 [facility] [place] [facility] [address] [id number] [place] [address]- 0204 Mar, 2013 [facility] [place] [facility] [address] [id number] [place] [address]- 6879 Mar, 2013 [facility] [place] [facility] [address] [id number] [place] [address]- 9210 Mar, 2013 [facility] [place] [facility] [address] [id number] [place] [address]- 6770 Mar, 2013 [facility] [place] [facility] [address] [id number] [place] [address]- 4572 Mar, [facility] [place] [facility] [address] [id number] [place] [address]- 8535 Feb, [facility] [place] [facility] [address] [id number] [place] [address]- 6481 Feb, [facility] [place] [facility] [address] [id number] [place] [address]- 1753 Feb, [facility] [place] [facility] [address] [id number] [place] [address]- 6580 Feb, [facility] [place] [facility] [address] [id number] [place] [address]- 6142 Feb, [facility] [place] [facility] [address] [id number] [place] [address]- 3986 Feb, [facility] [place] [facility] [address] [id number] [place] 9046 Feb, [facility] [place] [facility] [address] [id number] [place] [address]- 3879 Feb, [facility] [place] [facility] [address] [id number] [place] [address]- 1098 Feb, [facility] [place] [facility] [address] [id number] [place] [address]- 0478 Feb, [facility] [place] [facility] [address] [id number] [place] [address]- 2086 Feb, [facility] [place] [facility] [address] [id number] [place] [address] Feb, [facility] [place] [facility] [address] [id number] [place] [address] Feb, [facility] [place] [facility] [address] [id number] [place] [address] Feb, [facility] [place] [facility] [address] [id number] [place] [address] January, [facility] [place] [facility] [address] [id number] [place] [address]- [address] January, [facility] [place] [facility] [address] [id number] [place] [address] January, [facility] [place] [facility] [address] [id number] [place] [address] 8965 January, [facility] [place] [facility] [address] [id number] [place] [address]- [address] January, [facility] [place] [facility] [address] [id number] [place] [address]- [address] January, [facility] [place] [facility] [address] [id number] [place] [address]- 39[address] January, [facility] [place] [facility] [address] [id number] [place] [address]- [address] January, [facility] [place] [facility] [address] [id number] [place] [address]- 0788 January, [facility] [address] [id number] [place] [address]- [address] January, [facility] [place] [facility] [address] [id number] [place] [address]- 1006 January, [facility] [place] [facility] [address] [id number] [place] [address]- 9907 January, [facility] [place] [facility] [address] [id number] [place] [address]- 1267 January, [facility] [place] [facility] [address] [id number] [place] [address]- [address]231 January, [facility] [place] [facility] [address] [id number] [place] [address]- 3532 Dec, [facility] [place] [facility] [address] [id number] [place] [address]- 5[address] Dec, [facility] [place] [facility] [address] [id number] [place] [address]- 9784 Dec, [facility] [place] [facility] [address] [id number] [place] [address]- 2868 Dec, [facility] [place] [facility] [address] [id number] [place] [address]- 4516 Dec, [facility] [place] [facility] [address] [id number] [place] [address]- 8363 Dec, [facility] [place] [facility] [address] [id number] [place] [address]- 8430 Dec, [facility] [place] [facility] [address] [id number] [place] [address]- 6817 Dec, [facility] [place] [facility] [address] [id number] [place] [address]- 0668 Dec, [facility] [place] [facility] [address] [id number] [place] [address]- [address] Dec, [facility] [place] [facility] [address] [id number] [place] [address]- 7853 Nov, [facility] [place] [facility] [address] [id number] [place] [address]- [address]32 Nov, [facility] [place] [facility] [address] [id number] [place] [address]- 1156 Nov, [facility] [place] [facility] [address] [id number] [place] [address]- 0414 Nov, [facility] [place] [facility] [address] [id number] [place] [address]- 2748 Nov, [facility] [place] [facility] [address] [id number] [place] [address]- 0737 Nov, [facility] [place] [facility] [address] [id number] [place] [address]- 1331 Nov, [facility] [place] [facility] [address] [id number] [place] [address]- 3514 Nov, [facility] [place] [facility] [address] [id number] [place] [address]- 4752 Nov, [facility] [place] [facility] [address] [id number] [place] [address]- 9255 Nov, [facility] [place] [facility] [address] [id number] [place] [address]- 0448 Oct, [facility] [place] [facility] [address] [id number] [place] [address]- 7067 Oct, [facility] [place] [facility] [address] [id number] [place] [address] Oct, [facility] [place] [facility] [address] [id number] [place] [address]- 7005 Oct, [facility] [place] [facility] [address] [id number] [place] [address]- 7220 Oct, [facility] [place] [facility] [address] [id number] [place] [address]- 7946 Oct, [facility] [place] [facility] [address] [id number] [place] [address]- 3158 Oct, [facility] [place] [facility] [address] [id number] [place] [address]- 3894 Oct, [facility] [place] [facility] [address] [id number] [place] [address]- 7396 Oct, [facility] [place] [facility] [address] [id number] [place] [address]- 3513 Oct, [facility] [place] [facility] [address] [id number] [place] [address]- 0167 Oct, [facility] [place] [facility] [address] [id number] [place] [address]- 7452 Oct, [facility] [place] [facility] [address] [id number] [place] [address]- 6658 Oct, [facility] [place] [facility] [address] [id number] [place] [address]- 6790 Oct, [facility] [place] [facility] [address] [id number] [place] [address]- 2928 Sep, [facility] [place] [facility] [address] [id number] [place] [address]- 0268 Sep, [facility] [place] [facility] [address] [id number] [place] [address]- 3167 Sep, [facility] [place] [facility] [address] [id number] [place] [address]- 8128 Sep, [facility] [place] [facility] [address] [id number] [place] [address]- 4120 Sep, [facility] [place] [facility] [address] [id number] [place] [address]- 5283 Sep, [facility] [place] [facility] [address] [id number] [place] [address]- 487[address] Sep, [facility] [place] [facility] [address] [id number] [place] [address]- [address] 14 Sep, 2013 [facility] [place] [facility] [address] [id number] [place] [address]- [address]954 08 Sep, 2013 [facility] [place] [facility] [address] [id number] [place] [address]- 9416 08 Sep, 2013 [facility] [place] [facility] [address] [id number] [place] [address]- 6380 Aug, [facility] [address] [id number] [place] [address]- 2537 Aug, [facility] [place] [facility] [address] [id number] [place] [address]- 2810 Jul, [facility] [place] [facility] [address] [id number] [place] [address]- 5494 Jul, [facility] [place] [facility] [address] [id number] [place] [address]- 1079 Jul, [facility] [place] [facility] [address] [id number] [place] [address]- 3144 Jul, [facility] [place] [facility] [address] [id number] [place] [place] [address] Jul, [facility] [place] [facility] [address] [id number] [place] [address] 9758 Jul, [facility] [place] [facility] [address] [id number], [place] [address] Jul, [facility] [place] [facility] [address] [id number] [place] [address] 4328 Jul, [facility] [place] [facility] [address] [id number] [place] [address]- 9981 Jul, [facility] [place] [facility] [address] [id number], [place] [address] 7068 Jul, [facility] [place] [facility] [address] [id number], [place] [address] 45[address] Jul, [facility] [place] [facility] [address] [id number] [place] [address]- 9566 Jul, [facility] [place] [facility] [address] [id number], [place] [address] Jul, 2012 [facility] [place] [facility] [address] [id number] [place] [address]- 8102 Jul, 2012 [facility] [place] [facility] [address] [id number][place] [address] 36[address] Jul, 2012 [facility] [place] [facility] [address] [id number] [place] [address]- 4851 Jul, [facility] [place] [facility] [address] [id number], [place] [address] 269[address] Jul, [facility] [place] [facility] [address] [facility] [id number], [place] [address] 79[address] Jul, [facility] [place] [facility] [address] [id number], [place] [address] 4312 Jul, [facility] [place] [facility] [address] [id number], [place] [address] 5661 Jun, 2012 [facility] [place] [facility] [address] [id number][place] [address]- 3820 Jun, 2012 [facility] [place] [facility] [address] [id number][place] [address]- 0[address] 16 Jun, 2012 [facility] [place] [facility] [address] [id number], [place] [address]- 8568 16 Jun, 2012 [facility] [place] [facility] [address] [id number] [address]- 5065 16 Jun, 2012 [facility] [place] [facility] [address] [id number], [place] [address]- 7577 16 Jun, 2012 [facility] [place] [facility] [address] [id number], [place] [address]- 5287 10 Jun, 2012 [facility] [place] [facility] [address] [id number] [place] [address]- 0761 10 Jun, 2013 [facility] [place] [facility] [address] [id number] [place] [address]- 8150 Jun, [facility] [place] [facility] [address] [id number] [place] [address]- 0606 Jun, [facility] [place] [facility] [address] [id number] [place] [address]- 9315 Jun, [facility] [place] [facility] [address] [id number] [place] [address]- 8529 26 May, 2012 [facility] [place] [facility] [address] [id number] [place] [address]- 6991 25 May, 2012 [facility] [place] [facility] [address] [id number] [place] [address]- 2417 19 May, 2012 [facility] [place] [facility] [address] [id number] [place] [address]- 0418 17 May, 2012 [facility] [place] [facility] [address] [id number] [place] [address]- 8418 11 May, 2013 [facility] [place] [facility] [address] [id number] [place] [address]- 5337 May, 2012 [facility] [place] [facility] [address] [id number] [place] [address]- 7243 May, [facility] [place] [facility] [address] [id number] [place] [address]- 8190 05 May, 2012 [facility] [place] [facility] [address] [id number] [place] [address]- 8875 Apr, [facility] [place] [facility] [address] [id number] [place] [address]- 7998 Apr, [facility] [place] [facility] [address] [id number] [place] [address]- 6434 Apr, [facility] [place] [facility] [address] [id number] [place] [address]- 7421 Apr, [facility] [address] [id number] [place] [address]- 8921 Apr, [facility] [place] [facility] [address] [id number] [place] [address]- 9703 Mar, [facility] [place] [facility] [address] [id number] [place] [address]- 3380 Mar, [facility] [place] [facility] [address] [id number] [place] [address]- 6161 Mar, [facility] [place] [facility] [address] [id number] [place] [address]- 6162 Mar, [facility] [place] [facility] [address] [id number] [place] [address]- 4702 Mar, [facility] [place] [facility] [address] [id number] [place] [address]- 9199 Mar, [facility] [place] [facility] [address] [id number] [place] [address]- 8586 Mar, [facility] [place] [facility] [address] [id number] [place] [address]- 8694 Mar, [facility] [place] [facility] [address] [id number] [place] [address]- 2590 Feb, [facility] [place] [facility] [address] [id number] [place] [address]- 8475 Feb, [facility] [place] [facility] [address] [id number] [place] [address]- 9854 January, [facility] [place] [facility] [address] [id number] [place] [address]- 2263 January, [facility] [place] [facility] [address] [id number] [place] [address]- 9061 Dec, [facility] [place] [facility] [address] [id number] [place] [address]- 0052 Dec, [facility] [place] [facility] [address] [id number] [place] [address]- 8234 23 Nov, 2012 [facility] [address] [id number] [place] [address]- 3996 Nov, [facility] [place] [facility] [address] [id number] [place] [address]- 3264 Nov, [facility] [address] [id number] [place] [address]- 3006 Nov, [facility] [place] [facility] [address] [id number] [place] [address]- 5990 27 Oct, 2012 [facility] [place] [facility] [address] [id number] [place] [address]- 0170 26 Oct, 2012 [facility] [place] [facility] [address] [id number] [place] [address]- 8093 26 Oct, 2012 [facility] [place] [facility] [address] [id number] [place] [address]- 2656 26 Oct, 2012 [facility] [place] [facility] [address] [id number] [place] [address]- 5454 16 Oct, 2012 [facility] [place] [facility] [address] [id number] [place] [address]- 5987 14 Oct, 2012 [facility] [place] [facility] [address] [id number] [place] [address]- 8489 08 Oct, 2012 [facility] [place] [facility] [address] [id number] [place] [address] 2544 07 Oct, 2012 [facility] [place] [facility] [address] [id number] [place] [address] 2548 03 Oct, 2012 [facility] [place] [facility] [address] [id number] [place] [address]- 8331 30 Sep, 2012 [facility] [place] [facility] [address] [id number] [place] [address] 2549 Sep, [facility] [place] [facility] [address] [id number] [place] [address]- 2716 Sep, [facility] [address] [id number] [place] [address]- 3215 Sep, [facility] [place] [facility] [address] [id number] [place] [address]- 1690 17 Sep, 2012 [facility] [place] [facility] [address] [id number] [place] [address]- 8524 Sep, [facility] [place] [facility] [address] [id number] [place] [address]- 8252 Sep, [facility] [place] [facility] [address] [id number] [place] [address]- 4348 Sep, [facility] [place] [facility] [address] [id number] [place] [address]- 1750 Aug, [facility] [place] [facility] [address] [id number] [place] [address]- 9218 Aug, [facility] [place] [facility] [address] [id number] [place] [address]- 9164 Aug, [facility] [place] [facility] [address] [id number] [place] [address]- 9632 Aug, [facility] [place] [facility] [address] [id number] [place] [address]- 5544 Aug, [facility] [place] [facility] [address] [id number] [place] [address]- 4407 Aug, [facility] [place] [facility] [address] [id number] [address]- 7056 Aug, [facility] [place] [facility] [address] [id number] [place] [address]- 3728 Aug, [facility] [place] [facility] [address] [id number] [place] [address]- 5739 Jul, [facility] [place] [facility] [address] [id number] [place] [address]- 3972 Jul, [facility] [place] [facility] [address] [id number] [place] [address]- 8419 Jul, [facility] [place] [facility] [address] [id number] [place] [address]- 5763 Jul, [facility] [place] [facility] [address] [id number] [place] [address]- 9794 Jul, [facility] [place] [facility] [address] [id number] [place] [address]- 8837 Jul, [facility] [place] [facility] [address] [id number] [place] [address]- 2386 Jun, [facility] [place] [facility] [address] [id number] [place] [address]- 6385 Jun, [facility] [place] [facility] [address] [id number] [place] [address]- 7883 Jun, [facility] [place] [facility] [address] [id number] [place] [address]- 1870 Jun, [facility] [place] [facility] [address] [id number] [place] [address]- 6679 Jun, [facility] [place] [facility] [address] [id number] [place] [address]- 7649 Jun, [facility] [place] [facility] [address] [facility] [id number] [place] [address]- 3309 Jun, [facility] [place] [facility] [address] [id number] [place] [address]- 5000 10 Jun, 2012 [facility] [place] [facility] [address] [id number] [place] [address]- 3069 10 Jun, 2012 [facility] [place] [facility] [address] [id number] [place] [address]- 5207 26 May, 2012 [facility] [place] [facility] [address] [id number] [place] [address]- 3832 24 Sep2011 [facility] [place] [facility] [address] [id number], [place] [address]- 2863 18 May, 2012 [facility] [place] [facility] [address] [id number] [place] [address]- 9756 Apr, [facility] [place] [facility] [address] [id number] [place] [address]- 0090 Apr, [facility] [place] [facility] [address] [id number] [place] [address]- 3905 Apr, [facility] [place] [facility] [address] [id number] [place] [address]- 1883 Apr, [facility] [place] [facility] [address] [id number] [place] [address]- 1297 Apr, [facility] [place] [facility] [address] [id number] [place] [address]- 6407 Apr, [facility] [place] [facility] [address] [id number] [place] [address]- 1258 Mar, [facility] [place] [facility] [address] [id number] [place] [address]- 2807 Mar, [facility] [place] [facility] [address] [id number] [place] [address]- 1545 Mar, [facility] [place] [facility] [address] [id number] [place] [address]- 3937 Mar, [facility] [place] [facility] [address] [id number] [place] [address]- 7956 Feb, [facility] [place] [facility] [address] [id number] [place] [address]- 5836 Feb, [facility] [place] [facility] [address] [id number] [place] [address]- 0980 Feb, [facility] [place] [facility] [address] [id number] [place] [address]- 7873 Feb, [facility] [place] [facility] [address] [id number] [place] [address]- 1458 Feb, [facility] [place] [facility] [address] [id number] [place] [address]- 6516 January, [facility] [address] [id number] [place] 1176 January, [facility] [place] [facility] [address] [id number] [place] [address]- 6675 January, [facility] [place] [facility] [address] [id number] [place] [address]- 8820 January, [facility] [place] [facility] [address] [id number] [place] [address]- 0305 January, [facility] [place] [facility] [address] [id number] [place] [address]- 9364 January, [facility] [place] [facility] [address] [id number] [place] [address]- 2705 Dec, [facility] [place] [facility] [address] [id number] [place] [address]- 8581 Dec, [facility] [place] [facility] [address] [id number] [place] [address]- 3489 Dec, [facility] [place] [facility] [address] [id number] [place] [address]- 3959 Dec, [facility] [place] [facility] [address] [id number] [place] [address]- 3718 Dec, [facility] [place] [facility] [address] [id number] [place] [address]- 3543 Nov, [facility] [place] [facility] [address] [id number] [place] [address]- 1484 Nov, [facility] [place] [facility] [address] [id number] [place] [address]- 4454 Nov, [facility] [place] [facility] [address] [id number] [place] [address]- 1745 Nov, [facility] [place] [facility] [address] [id number] [place] [address]- 8989 Oct, [facility] [place] [facility] [address] [id number] [place] [address]- 7073 28 Oct, 2011 [facility] [place] [facility] [address] [id number] [place] [address]- 9976 24 Oct, 2011 [facility] [place] [facility] [address] [id number] [place] [address] 2546 13 Oct, 2011 [facility] [place] [facility] [address] [id number] [place] [address] 2546 08 Oct, 2011 [facility] [place] [facility] [address] [id number] [place] [address] 2542 Sep, [facility] [place] [facility] [address] [id number] [place] [address]- 2903 Sep, [facility] [place] [facility] [address] [id number] [place] [address]- 4456 Sep, [facility] [place] [facility] [address] [id number] [place] [address]- 8348 Sep, [facility] [place] [facility] [address] [id number] [place] [address]- 4231 Sep, [facility] [place] [facility] [address] [id number] [place] [address]- 4657 Sep, [facility] [place] [facility] [address] [id number] [place] [address]- 3776 Aug, [facility] [place] [facility] [address] [id number] [place] [address]- 9916 Aug, [facility] [place] [facility] [address] [id number] [place] [address] 2546 Aug, [facility] [place] [facility] [address] [id number] [place] [address]- 8746 Jul, [facility] [place] [facility] [address] [id number] [place] [address]- 2546 Jul, [facility] [place] [facility] [address] [id number] [place] [address]- 8194 Jul, [facility] [place] [facility] [address] [id number] [place] [address]- 3352 Jul, [facility] [place] [facility] [address] [id number] [place] [address]- 3480 Jun, [facility] [place] [facility] [address] [id number] [place] [address]- 8631 Jun, [facility] [place] [facility] [address] [id number] [place] [address]- 7643 Jun, [facility] [place] [facility] [address] [id number] [place] [address]- 2906 Jun, [facility] [place] [facility] [address] [id number] [place] [address]- 7990 Jun, [facility] [place] [facility] [address] [id number] [place] [address]- 2588 Jun, [facility] [place] [facility] [address] [id number] [place] [address]- 9691 Mar, [facility] [place] [facility] [address] [id number] [place] [address]- 9924 Dec, [facility] [place] [facility] [address] [id number] [place] [address]- 4034 Dec, [facility] [place] [facility] [address] [id number], [place] [address]- 5012 Nov, [facility] [place] [facility] [address] [id number], [place] [address]- 0659 16 Nov, 2010 [facility] [place] [facility] [address] [id number] [place] [address]- 9429 Sep, [facility] [place] [facility] [address] [id number] [place] [address]- 0437 Aug, [facility] [place] [facility] [address] [id number] [place] [address]- 8154 Aug, [facility] [place] [facility] [address] [id number] [place] [address]- 4956 29 Aug, 2010 [facility] [address] [id number] [place] [address] 2546 29 Aug, 2010 [facility] [place] [facility] [address] [id number] [place] [address] 2546 27 Aug, 2010 [facility] [address] [id number] [place] [address] 2546 14 Aug, 2010 [facility] [place] [facility] [address] [id number] [place] [address] 2546 08 Aug, 2010 [facility] [address] [id number] [place] [address] 2546 08 Aug, 2010 [facility] [place] [facility] [address] [id number] [place] [address] 2546 07 Aug, 2010 [facility] [address] [facility] [id number] [place] [address] 2546 06 Aug, 2010 [facility] [place] [facility] [address] [id number] [place] [address] 2545 06 Aug, 2010 [facility] [place] [facility] [address] [facility] [id number] [place] [address] 2546 Aug, [facility] [place] [facility] [address] [facility] [id number] [place] [address] 2541 30 Jul, 2010 [facility] [place] [facility] [address] [id number] [place] [address] 2546 30 Jul, 2010 [facility] [place] [facility] [address] [id number], [place] [address] 2546 30 Jul, 2010 [facility] [place] [facility] [address] [id number] [place] [address] 2546 17 Jul, 2010 [facility] [place] [facility] [address] [facility] [id number] [place] [address] 2546 08 Jul, 2010 [facility] [place] [facility] [address] [facility] [id number], [place] [address] 2546 Jul, [facility] [place] [facility] [address] [id number] [place] [address]- 8472 24 Jun, 2010 [facility] [address] [id number] [place] [address]- 0270 Jun, [facility] [place] [facility] [address] [id number] [place] [address]- 9862 Jun, [facility] [id number] [place] [address], [place] [address]- 0427 13 Jun, 2010 [facility] [address] [id number] [place] [address]- 8399 16 Apr, 2010 [facility] [address] [id number] [place] [address]- 5978 Mar, [facility] [address] [id number] [place] [address]- 0095 Feb, [facility] [address] [id number] [place] [address]- 5659 January, [facility] [address] [id number] [place] [address]- 0497 Dec, [facility] [address] [id number] [place] [address]- 7617 Nov, [facility] [address] [id number] [place] [address]- 9730 31 Aug, 2009 [facility] [place] [facility] [address] [id number], [place] [address]- 0825 Aug, [facility] [place] [facility] [address] [id number] [place] 0726 07 Aug, 2009 [facility] [place] [facility] [address] [id number] [place] [address]- 9592 Jul, [facility] [place] [facility] [address] [id number] [place] [address] 09 Jul, 2009 [facility] [place] [facility] [address] [id number], [place] [address] Jul, [facility] [id number] [address] Jun, [facility] [id number] [address] Jun, [facility] [id number] [address] Jun, [facility] [id number] [address] Jun, [facility] [id number] [address] Jun, [facility] [id number] [address] Jun, [facility] [id number] [address] Apr, [facility] [address] [address] Apr, [facility] [address] [address] Feb, [facility] [address] [address] January, [facility] [id number] [address] Dec, IMMUNIZATIONS No Known Immunizations SOCIAL HISTORY Never Assessed REASON FOR VISIT f/u, Depression. PLAN OF CARE Activity Details Follow Up 1 Week Reason:depression VITAL SIGNS MEDICATIONS Unknown Medications RESULTS No Results PROCEDURES Procedure Date Ordered Result Body Site [facility] VISIT MENTAL HEALTH ESTAB PT April 12, 2017 Psychotherapy, patient &/family, 45 minutes, established patient April 12, 2017 INSTRUCTIONS MEDICATIONS ADMINISTERED No Known [...] 2009 ([facility]), 2013 ([facility]) Surgical History heart cath: CAD w/ PTCA [...] [facility] mental health early Hospitalization History hyperkalemia 10/2017 Hospitalization History fluid in lung
--- OUTSIDE RECORDS SUMMARY | 2018-08-08 13:28 | XMS REPORT ---
Author Author NOEMI WASHBURN [facility] Address [address] [place] [address] Care Team Providers Care Rigging Supervisor Name Role Phone NOEMI WASHBURN Unavailable PROBLEMS Type Condition ICD9-CM Code [id number] Code Onset Dates Condition Status SNOMED Code Problem Chronic lymphocytic leukemia C91.10 Active 42813564 Problem Eye exam abnormal R93.8 Active 190920482 Problem Lymphocytosis D72.820 Active 60576070 Problem Eustachian tube dysfunction, unspecified laterality H69.80 Active 20946801 Problem Dysuria R30.0 Active 93421360 Problem Cough R05 Active 70456233 Problem Polyneuropathy associated with underlying disease G63 Active 750066527 Problem Hypokalemia E87.6 Active 09868979 Problem Bilateral primary osteoarthritis of knee M17.0 Active 695444423 Problem Benign prostatic hyperplasia with lower urinary tract symptoms, unspecified morphology N40.1 Active 351184006 Problem Retinal edema H35.81 Active 8177261 Problem 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 Active 311755864 Problem Anemia of chronic illness D63.8 Active 706449806 Problem Other chronic pain G89.29 Active 19416500 Problem Other iron deficiency anemia D50.8 Active 58948823 Problem Leukocytosis D72.829 Active 521639209 Problem Chronic pain G89.29 Active 45921349 Problem DM neuro manif type II E11.49 Active 99123719 Problem Bipolar disorder, in partial remission, most recent episode depressed F31.75 Active 14618657 Problem Falling R29.6 Active 829281289 Problem Primary osteoarthritis of right knee M17.11 Active 649760407772147 Problem Pure hypercholesterolemia E78.00 Active 996205258 Problem Bipolar I disorder, most recent episode (or current) mixed, moderate F31.62 Active 24504279 Problem Insomnia, unspecified type G47.00 Active 614476092 Problem Diabetes E11.9 Active 17727055 Problem Reactive airway disease J45.909 Active 774296166452 Problem Essential hypertension I10 Active 14149716 Problem Diabetic polyneuropathy associated with type 2 diabetes mellitus E11.42 Active 98774203 Problem Anxiety F41.9 Active 48389111 Problem Morbid obesity E66.01 Active 488572987 ALLERGIES No Information ENCOUNTERS Encounter Location Date Diagnosis [facility] [id number] [place] [address] 24307- 5290 Jul, [facility] [address] 31179- 6451 Jul, [facility] [address] 58542- 3452 Jul, [facility] [address] 22750- 6344 Jul, [facility] [id number] [place] [address] 98636- 2025 Jul, [facility] [id number] [place] [address] 33134- 0090 Jul, Bipolar I disorder, most recent episode (or current) mixed, moderate F31.62 [facility] [id number] [place] [address] 32859- 1574 Jul, Chronic pain G89.29 [facility] [id number] [place] [address] 80070- 5760 Jun, Bipolar I disorder, most recent episode (or current) mixed, moderate F31.62 [facility] [id number] [place] [address] 61930- 6114 Jun, Pre-procedure lab exam Z01.812 [facility] [id number] [place] [address] 87708- 1522 Jun, [facility] [place] [id number] [place] [address] [id number] Jun, [facility] [address] 72041- 5389 Jun, [facility] [id number] [place] [address] 97942- 2616 Jun, Forgetfulness R68.89 ; Pre-syncope R55 ; Localized edema R60.0 ; Other iron deficiency anemia D50.8 and BMI 50.0-59.9, adult Z68.43 [facility] [id number] [place] [address] 72329- 9398 Jun, Chronic pain G89.29 [facility] [address] 96624- 3886 Jun, Chronic pain G89.29 [facility] [address] 14871- 2337 Jun, Bipolar I disorder, most recent episode (or current) mixed, moderate F31.62 [facility] [id number] [place] [address] 28017- 6780 May, Chronic pain G89.29 [facility] [id number] [place] [address] 51197- 8938 Apr, [facility] [address] 93341- 1120 Apr, Chronic pain G89.29 [facility] [id number] [place] [address] 67643- 2765 Apr, Primary osteoarthritis of right knee M17.11 [facility] [id number] [place] [address] 35891- 3913 Mar, [facility] [id number] [place] [address] 10148- 3598 Mar, BMI 50.0-59.9, adult Z68.43 and Bipolar disorder, in partial remission, most recent episode depressed F31.75 [facility] [id number] [place] [address] 78761- 0266 Mar, Diabetes E11.9 ; Pure hypercholesterolemia E78.00 ; Essential hypertension I10 ; Nausea with vomiting, unspecified R11.2 and Headache, unspecified headache type R51 [facility] [id number] [place] [address] 86493- 8211 Mar, Bipolar I disorder, most recent episode (or current) mixed, moderate F31.62 [facility] [id number] [place] [address] 43184- 1828 Mar, Bipolar I disorder, most recent episode (or current) mixed, moderate F31.62 [facility] [id number] [place] [address] 72778- 5845 Mar, Chronic pain G89.29 [facility] [id number] [place] [address] 58818- 2618 Mar, Bipolar I disorder, most recent episode (or current) mixed, moderate F31.62 [facility] [id number] [place] [address] 06152- 1062 Feb, Bipolar I disorder, most recent episode (or current) mixed, moderate F31.62 [facility] [id number] [place] [address] 09386- 3066 Feb, Chronic pain G89.29 [facility] [id number] [place] [address] 16460- 5639 Feb, Decubitus ulcer of right foot, stage 3 L89.893 and BMI 50.0- 59.9, adult Z68.43 [facility] [id number] [place] [address] 84232- 3493 Feb, Bipolar I disorder, most recent episode (or current) mixed, moderate F31.62 [facility] [id number] [place] [address] 97861- 0144 Feb, [facility] [id number] [place] [address] 61574- 9041 January, [facility] [id number] [place] [address] 44325- 4907 January, Chronic pain G89.29 [facility] [address] [place] [address] 89079- 6103 January, Bipolar I disorder, most recent episode (or current) mixed, moderate F31.62 [facility] [id number] [place] [address] 64189- 6541 January, Bipolar I disorder, most recent episode (or current) mixed, moderate F31.62 [facility] [id number] [place] [address] 75476- 1526 Dec, Bipolar I disorder, most recent episode (or current) mixed, moderate F31.62 and BMI 50.0-59.9, adult Z68.43 [facility] [id number] [place] [address] 94034- 4022 Dec, Bipolar I disorder, most recent episode (or current) mixed, moderate F31.62 [facility] [id number] [place] [address] 15499- 6337 Dec, Chronic pain G89.29 [facility] [id number] [place] [address] 90112- 6495 Dec, DM neuro manif type II E11.49 ; Right flank pain R10.9 ; 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 Z79.891 ; Encounter for medication monitoring Z51.81 and BMI 50.0-59.9, adult Z68.43 [facility] [id number] [place] [address] 05820- 7356 Dec, Bipolar I disorder, most recent episode (or current) mixed, moderate F31.62 [facility] [id number] [place] [address] 22477- 7551 Nov, Bipolar I disorder, most recent episode (or current) mixed, moderate F31.62 [facility] [id number] [place] [address] 25448- 0486 Nov, Chronic pain G89.29 [facility] [id number] [place] [address] 74420- 0733 Nov, Bipolar I disorder, most recent episode (or current) mixed, moderate F31.62 [facility] [address] 571579- 1637 Nov, Hypokalemia E87.6 [facility] [address] 80202- 1751 Nov, Bipolar I disorder, most recent episode (or current) mixed, moderate F31.62 [facility] [id number] [place] [address] 82922- 5414 Oct, Chronic pain G89.29 [facility] [address] 944639- 3443 Oct, BMI 50.0-59.9, adult Z68.43 and Bipolar I disorder, most recent episode (or current) mixed, moderate F31.62 [facility] [address] 97882- 2571 Oct, Bipolar I disorder, most recent episode (or current) mixed, moderate F31.62 [facility] [id number] [place] [address] 86949- 6635 Oct, [facility] [id number] [place] [address] 18124- 5962 Oct, Hypokalemia E87.6 [facility] [id number] [place] [address] 91662- 8168 Oct, DM neuro manif type II E11.49 [facility] [id number] [place] [address] 90058- 2058 Oct, Bipolar I disorder, most recent episode (or current) mixed, moderate F31.62 [facility] [id number] [place] [address] 36939- 5886 Oct, Bipolar I disorder, most recent episode (or current) mixed, moderate F31.62 [facility] [id number] [place] [address] 65937- 0137 14 Oct, 2017 Hyperkalemia E87.5 ; Falling R29.6 ; BMI 50.0-59.9, adult Z68.43 and Acute left ankle pain M25.572 [facility] [address] 90314- 4152 08 Oct, 2017 DM neuro manif type II E11.49 [facility] [address] 99899- 3013 Oct, [address] 75209- 3160 Sep, Chronic pain G89.29 [facility] [address] 87051- 6098 Sep, [address] 86654- 1974 Sep, Bilateral primary osteoarthritis of knee M17.[address] 67704- 3616 Sep, Generalized edema R60.[address] 19070- 0653 Sep, Bipolar I disorder, most recent episode (or current) mixed, moderate F31.[address] 67964- 1508 15 Sep, 2017 Hypoxia R09.02 ; Other hypervolemia E87.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 ; Anemia of chronic illness D63.8 and BMI 50.0- 59.9, adult Z68.[address] 12095- 5510 Sep, [address] 88044- 1546 Sep, Bipolar I disorder, most recent episode (or current) mixed, moderate F31.62 [facility] [id number] [place] [address] 98973- 1160 Aug, Chronic pain G89.29 [facility] [id number] [place] [address] 94460- 4909 Aug, Generalized edema R60.1 [facility] [id number] [place] [address] 124314- 0396 Aug, [facility] [id number] [place] [address] 80120- 2909 Aug, [facility] [id number] [place] [address] 06611- 7083 Aug, Bipolar I disorder, most recent episode (or current) mixed, moderate F31.62 [facility] [id number] [place] [address] 79648- 9233 Aug, Bipolar I disorder, most recent episode (or current) mixed, moderate F31.62 [facility] [id number] [place] [address] 94112- 7200 Aug, Chronic pain G89.29 [facility] [address] [place] [address] 94954- 0410 30 Jul, 2017 Bipolar I disorder, most recent episode (or current) mixed, moderate F31.62 [facility] [id number] [place] [address] 97873- 8119 Jul, Bipolar I disorder, most recent episode (or current) mixed, moderate F31.62 and BMI 60.0-69.9, adult Z68.44 [facility] [id number] [place] [address] 49366- 9625 16 Jul, 2017 Bipolar I disorder, most recent episode (or current) mixed, moderate F31.62 [facility] [id number] [place] [address] 02538- 3135 Jul, Chronic pain G89.29 [facility] [address] [address]- 5006 Jul, Bipolar I disorder, most recent episode (or current) mixed, moderate F31.62 [facility] [address] [place] [address] 95079- 3479 18 Jun, 2017 Polyneuropathy associated with underlying disease G63 and Diabetes E11.9 [facility] [id number] [place] [address] 67374- 1042 16 Jun, 2017 Bipolar I disorder, most recent episode (or current) mixed, moderate F31.62 [facility] [id number] [place] [address] 58127- 5987 Jun, Chronic pain G89.29 [facility] [id number] [place] [address] 93418- 2985 27 May, 2017 Bipolar I disorder, most recent episode (or current) mixed, moderate F31.62 [facility] [id number] [place] [address] 68895- 4496 21 May, 2017 Bipolar I disorder, most recent episode (or current) mixed, moderate F31.62 [facility] [id number] [place] [address] 05129- 6268 20 May, 2017 Diabetic polyneuropathy associated with type 2 diabetes mellitus E11.42 [facility] [address] [place] [address] 06263- 1051 18 May, 2017 Bipolar I disorder, most recent episode (or current) mixed, moderate F31.62 [facility] [address] [place] [address] 14535- 8821 13 May, 2017 Bipolar I disorder, most recent episode (or current) mixed, moderate F31.62 [facility] [address] [place] [address] 24013- 8273 12 May, 2017 Chronic pain G89.29 [facility] [id number] [place] [address] 37858- 9682 Apr, Bipolar I disorder, most recent episode (or current) mixed, moderate F31.62 [facility] [id number] [place] [address] 18748- 5491 Apr, [facility] [id number] [place] [address] 12910- 4945 Apr, Chronic pain G89.29 and DM neuro manif type II E11.49 [facility] [id number] [place] [address] 53434- 2288 Apr, [facility] [id number] [place] [address] 57652- 3233 Apr, Bipolar I disorder, most recent episode (or current) mixed, moderate F31.62 [facility] [id number] [place] [address] 52397- 0092 Apr, Chronic pain G89.29 [facility] [address] 41512- 3239 Apr, Iliotibial band syndrome, left M76.32 [facility] [id number] [place] [address] 08746- 9407 Apr, Bipolar I disorder, most recent episode (or current) mixed, moderate F31.62 [facility] [id number] [place] [address] 42933- 6993 Mar, Bipolar I disorder, most recent episode (or current) mixed, moderate F31.62 [facility] [id number] [place] [address] 22230- 6903 Mar, Bipolar I disorder, most recent episode (or current) mixed, moderate F31.62 [facility] [id number] [place] [address] 11932- 3186 Mar, [facility] [id number] [place] [address] 33688- 5183 Mar, Bipolar I disorder, most recent episode (or current) mixed, moderate F31.62 [facility] [address] [place] [address] 04170- 7579 Mar, Chronic pain G89.29 [facility] [id number] [place] [address] 31695- 7303 Mar, Bipolar I disorder, most recent episode (or current) mixed, moderate F31.62 [facility] [id number] [place] [address] 44569- 4574 Mar, Bipolar I disorder, most recent episode (or current) mixed, moderate F31.62 [facility] [id number] [place] [address] 38471- 3821 Mar, Acute pain of left knee M25.562 ; Left hip pain M25.552 ; Generalized edema R60.1 and Tongue swelling R22.0 [facility] [id number] [place] [address] 79614- 4922 Mar, [facility] [id number] [place] [address] 60397- 2156 Feb, Chronic pain G89.29 [facility] [id number] [place] [address] 62574- 9222 Feb, Diabetes E11.9 [facility] [id number] [place] [address] 40580- 2782 January, Chronic pain G89.29 [facility] [id number] [place] [address] 20899- 5241 January, [facility] [id number] [place] [address] 24554- 5207 January, Bipolar I disorder, most recent episode (or current) mixed, moderate F31.62 [facility] [id number] [place] [address] 44304- 3207 Dec, Bipolar I disorder, most recent episode (or current) mixed, moderate F31.62 [facility] [id number] [place] [address] 26019- 0572 Dec, Chronic pain G89.29 [facility] [address] [place] [address]- 2336 Dec, Bipolar I disorder, most recent episode (or current) mixed, moderate F31.62 [facility] [address] [address]- 0339 Dec, Diabetes E11.9 ; Essential hypertension I10 ; Chronic pain G89.29 and Morbid obesity E66.01 [facility] [address] [address]- 2973 Dec, [facility] [id number] [place] [address] 42906- 1409 Dec, Bipolar I disorder, most recent episode (or current) mixed, moderate F31.62 [facility] [address] [place] [address]- 7267 Dec, Bipolar I disorder, most recent episode (or current) mixed, moderate F31.62 [facility] [address] [place] [address]- 1602 Nov, Chronic pain G89.29 [facility] [address] [place] [address] 06053- 2066 Nov, Bipolar I disorder, most recent episode (or current) mixed, moderate F31.62 [facility] [address] [address]- 1332 Nov, [facility] [address] [place] [address]- 8421 Nov, Bipolar I disorder, most recent episode (or current) mixed, moderate F31.62 [facility] [address] [address]- 0293 Nov, Bipolar I disorder, most recent episode (or current) mixed, moderate F31.62 [facility] [address] [place] [address]- 7396 Nov, [facility] [address] [place] [address]- 9844 Nov, [facility] [id number] [place] [address] 30242- 1713 Nov, [facility] [id number] [place] [address] 95469- 7264 Oct, Chronic pain G89.29 [facility] [id number] [place] [address] 86260- 0751 Oct, Bipolar I disorder, most recent episode (or current) mixed, moderate F31.62 [facility] [id number] [place] [address] 77777- 1518 Oct, [facility] [id number] [place] [address] 76725- 5183 Oct, Chronic pain G89.29 ; Diabetes E11.9 ; Anxiety F41.9 and 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 [facility] [address] [place] [address] 94370- 8069 Oct, [facility] [address] [place] [address] 27156- 3029 Oct, Diabetes E11.9 [facility] [address] [place] [address] 90042- 1096 Oct, Bipolar I disorder, most recent episode (or current) mixed, moderate F31.62 [facility] [address] [address]- 9482 Sep, Chronic pain G89.29 [facility] [id number] [place] [address] 30196- 9884 Sep, Chronic pain G89.29 [facility] [id number] [place] [address] 21213- 9595 Aug, Chronic pain G89.29 [facility] [id number] [place] [address] 73243- 7225 Jul, [facility] [facility] [address] 38221- 1869 Jul, Diabetes E11.9 [facility] [id number] [place] [address] 15914- 6470 Jul, Chronic pain G89.29 [facility] [facility] [address] 30658- 9183 Jul, Bipolar I disorder, most recent episode (or current) mixed, moderate F31.62 [facility] [facility] [address] [id number]- 9214 Jun, Bipolar I disorder, most recent episode (or current) mixed, moderate F31.62 [place] [address] [place] [id number] [place] [address] 12131- 9119 Jun, [place] [address] 75910- 3606 Jun, Bipolar I disorder, most recent episode (or current) mixed, moderate F31.62 [place] [address] [place] [id number] [place] [address] 97014- 3218 30 May, 2016 Insomnia, unspecified type G47.00 [place] [address] [place] [id number] [place] [address] 63293- 2156 May, Bipolar I disorder, most recent episode (or current) mixed, moderate F31.62 [place] [address] [place] [id number] [place] [address] 05106- 7284 14 May, 2016 [place] [address] 26702- 7183 08 May, 2016 Bipolar I disorder, most recent episode (or current) mixed, moderate F31.62 [place] [address] [place] [id number] [place] [address] 81086- 1552 06 May, 2016 Diabetes E11.9 and Essential hypertension I10 [place] [id number] [address] Apr, Chronic pain G89.29 [place] [address] [place] [id number] [place] [address] 45508- 2716 Apr, Bipolar I disorder, most recent episode (or current) mixed, moderate F31.62 [place] [address] [place] [id number] [place] [address] 32697- 4102 Apr, [place] [address] [place] [id number] [place] [address] 66805- 9015 Apr, [place] [address] [place] [id number] [place] [address] 79644- 8386 Mar, Chronic pain G89.29 ; Headache, unspecified headache type R51 ; Neuropathy G62.9 ; Pain of right hip joint M25.551 and Essential hypertension I10 [place] [address] [place] [id number] [place] [address] 21583- 4091 Mar, Chronic pain G89.29 [place] [address] [place] [id number] [place] [address] 72883- 3377 Mar, Bipolar I disorder, most recent episode (or current) mixed, moderate F31.62 [place] [address] [id number] [place] [address] 69458- 7806 Feb, Bipolar I disorder, most recent episode (or current) mixed, moderate F31.62 and Insomnia, unspecified type G47.00 [place] [address], [place] [address] 5[address] Feb, Chronic pain G89.29 [facility] [id number] [place] [address] 42958- 5577 Feb, Bipolar I disorder, most recent episode (or current) mixed, moderate F31.62 [place] [id number] [place] [address] 92104- 7953 January, Bipolar I disorder, most recent episode (or current) mixed, moderate F31.62 [facility] [id number] [place] [address] 74199- 5983 January, Chronic pain G89.29 [facility] [address] 36528- 3392 January, Chronic pain G89.29 and Essential hypertension I10 [facility] [address] 88536- 7755 January, Bipolar I disorder, most recent episode (or current) mixed, moderate F31.62 [facility] [address] 59302- 2401 Dec, [facility] [address] 56945- 8928 Dec, [facility] [address] 41012- 6224 Dec, [facility] [address] 05534- 2263 Dec, [facility] [address] 57298- 6889 Nov, Reactive airway disease J45.909 [facility] [id number] [place] [address] 66601- 7082 Nov, [facility] [address] 97698- 1942 Nov, [facility] [id number] [place] [address] 14626- 2938 Nov, [facility] [address] 40783- 2450 Nov, [facility] [address] 60916- 4243 Nov, Onychomycosis B35.1 ; Hammertoe M20.40 ; [place] or callus L84 and DM neuro manif type II E11.49 [facility] [id number] [place] [address] 36138- 4246 Nov, Chronic pain G89.29 ; Leukocytosis D72.829 and Diabetes E11.9 [facility] [id number] [place] [address] 41516- 2929 Nov, [facility] [id number] [place] [address] 62727- 6941 Oct, Bronchitis J40 [facility] [id number] [place] [address] 86370- 5262 Oct, [facility] [address] 65904- 6611 Oct, [facility] [id number] [place] [address] 08511- 0333 Oct, Mastoiditis, unspecified laterality H70.90 and Type 2 diabetes mellitus with complication E11.8 [facility] [id number] [place] [address] 96592- 4641 Sep, [facility] [id number] [place] [address] 36795- 2119 Sep, Dysuria R30.0 ; Cough R05 ; Benign prostatic hyperplasia with lower urinary tract symptoms, unspecified morphology N40.1 ; Hypokalemia E87.6 and Eustachian tube dysfunction, unspecified laterality H69.80 [facility] [id number] [place] [address] 02879- 8837 Sep, Moderate mixed bipolar I disorder F31.62 [facility] [place] [id number] [place] [address] 91830- 0160 Sep, Hypokalemia E87.6 [facility] [id number] [place] [address] 82504- 7910 Sep, [facility] [place] [id number] [place] [address] 08983- 5403 Sep, Upper respiratory tract infection, unspecified type J06.9 [facility] [address], [place] [address]- 7711 Aug, [facility] [address], [place] [address]- 8986 Aug, Dysuria R30.0 [facility] [address], [place] [address]- 9591 Aug, [facility] [address], [place] [address]- 0511 Jul, [facility] [address], [place] [address]- 9652 Jul, [facility] [id number] [place] [address] 39068- 3782 Jul, [facility] [id number] [place] [address] 73170- 5710 Jul, [facility] [address], [place] [address]- 3417 Jun, [facility] [address], [place] [address]- 9491 Jun, [facility] [address], [place] [address]- 8954 Jun, [facility] [address], [place] [address]- 5521 May, [facility] [address], [place] [address]- 6766 May, Bipolar I disorder, most recent episode (or current) mixed, moderate 296.62 [facility] [address], [place] [address]- 9395 16 May, 2015 [facility] [address], [place] [address]- 6298 May, Bipolar I disorder, most recent episode (or current) mixed, moderate 296.62 and Major depressive disorder, recurrent episode, severe, specified as with psychotic behavior 296.34 [facility] [address], [place] [address]- 9118 May, Bipolar I disorder, most recent episode (or current) mixed, moderate 296.62 [facility] [address] 9479 May, [facility] [id number] [place] [address] 74049- 4770 Apr, [facility] [address], [place] [address]- 6437 Apr, [facility] [id number] [place] [address] 25810- 5584 Apr, Unspecified disorder of kidney and ureter 593.9 and Diabetes mellitus type 2, uncontrolled 250.02 [facility] [id number] [place] [address] 28139- 6781 Apr, [facility] [address], [place] [address]- 2037 Apr, [facility] [id number] [address]- 7953 Apr, [facility] [address], [place] [address]- 1019 Apr, [facility] [address], [place] [address]- 1918 Apr, Diabetes mellitus type II, uncontrolled 250.02 [facility] [address], [place] [address]- 6294 Apr, [facility] [id number] 2296 Mar, [facility] [address], [place] [address]- 0364 Mar, [facility] [address], [place] [address]- 6464 Mar, [facility] [address], [place] [address]- 2820 Mar, Major depressive disorder, recurrent episode, severe, specified as with psychotic behavior 296.34 and Bipolar I disorder, most recent episode (or current) mixed, moderate 296.62 [facility] [address] [place] [address] 46906- 5002 Mar, Diabetes 250.00 ; Anuria 788.5 ; Nausea and vomiting 787.01 and Diarrhea 787.91 [facility] [id number] [place] [address] 38963- 2224 Mar, Diabetes 250.00 [facility] [id number] [place] [address] 54608- 3140 Mar, [facility] [id number] [place] [address] 71630- 0784 Mar, Diabetes 250.00 [facility] [id number] [place] [address] 33100- 7511 Mar, [facility] [id number] [place] [address] 44596- 1425 Mar, [facility] [id number] [place] [address] 95356- 6742 Mar, [facility] [id number] [place] [address] 68860- 3562 Mar, [facility] [id number] [place] [address] 22229- 9356 Mar, Bipolar I disorder, most recent episode (or current) mixed, moderate 296.62 and Major depressive disorder, recurrent episode, severe, specified as with psychotic behavior 296.34 [facility] [address] [place] [address] 78763- 7879 Mar, Magnesium deficiency 275.2 ; Hypokalemia 276.8 ; Nausea & vomiting 787.01 and Diabetes mellitus type 2, uncontrolled 250.02 [facility] [id number] [place] [address] 31997- 2362 Feb, [facility] [id number] [place] [address] 62046- 0128 Feb, Bipolar I disorder, most recent episode (or current) mixed, moderate 296.62 [facility] [id number] [place] [address] 96338- 4048 Feb, Nausea and vomiting 787.01 ; Left elbow pain 719.42 ; Anuria 788.5 and Diabetes 250.00 [facility] [id number] [place] [address] 04747- 1944 Feb, [facility] [id number] [place] [address] 46132- 6948 Feb, Hypopotassemia 276.8 and Hypokalemia 276.8 [place] [id number] [place] [address] 82550- 9607 Feb, Hypopotassemia 276.8 and Hypokalemia 276.8 [facility] [id number] [place] [address] 28405- 9374 Feb, Seborrheic keratoses 702.19 [facility] [id number] [place] [address] 25781- 6245 Feb, Hypopotassemia 276.8 and Low magnesium levels 275.2 [facility] [id number] [place] [address] 44638- 3406 January, [facility] [id number] [place] [address] 20215- 4933 January, [facility] [id number] [place] [address] 73709- 8365 January, [facility] [id number] [place] [address] 54260- 7762 January, Scalp lesion 709.9 [facility] [id number] [place] [address] 55706- 7803 January, [facility] [place] [address] 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 [id number], [place] [address]- 0166 Dec, [facility] [place] [address] [facility] [id number]- 4176 28 Dec, 2014 Squamous cell carcinoma, 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 [facility] [place] [id number] 9402 14 Dec, 2014 [facility] [address] 3953 Dec, [facility] [address] [facility] [id number], [place] [address]- 3336 Nov, [facility] [id number] 0298 Nov, [facility] [place] [address], [place] [address]- 8108 Nov, [facility] [id number], [place] [address]- 1719 Nov, [facility] [address] [facility] [id number]- 0758 Nov, [facility] [place] [address] [facility] [id number], [place] [address]- 0251 Nov, [facility] [place] [id number], [place] [address]- 2215 Nov, [facility] [place] [id number], [place] [address]- 1744 Nov, [facility] [address] [facility] [id number] [place] [address]- 2117 Nov, 2014 [facility] [place] [facility] [address] [id number] [place] [address]- 4038 Nov, [facility] [place] [facility] [address] [id number] [place] [address]- 8184 Nov, 2014 [facility] [place] [facility] [address] [id number] [place] [address]- 2560 Nov, 2014 [facility] [place] [facility] [address] [id number] [place] [address]- 5710 Oct, 2014 [facility] [place] [facility] [address] [id number] [place] [address]- 7616 Oct, 2014 [facility] [place] [facility] [address] [facility] [id number] [place] [address]- 6923 Oct, 2014 [facility] [place] [facility] [address] [facility] [id number] [place] [address]- 5761 Oct, 2014 [facility] [place] [facility] [address] [id number] [place] [address]- 5389 Oct, 2014 [facility] [place] [facility] [address] [facility] [id number] [place] [address]- 6420 Oct, 2014 [facility] [place] [facility] [address] [facility] [id number] [place] [address]- 0885 Oct, 2014 [facility] [place] [facility] [address] [facility] [id number], [place] [address]- 7650 Oct, 2014 [facility] [place] [facility] [address] [facility] [id number] [place] [address]- 2545 Oct, [facility] [place] [facility] [address] [id number] [place] [address]- 4584 Sep, [facility] [place] [facility] [address] [facility] [id number] [place] [address]- 0233 Sep, [facility] [place] [facility] [address] [facility] [id number], [place] [address]- 8077 Sep, [facility] [place] [facility] [address] [id number] [place] [address]- 0918 Sep, [facility] [place] [facility] [address] [id number] [place] [address]- 9890 Sep, [facility] [place] [facility] [address] [id number] [place] [address]- 8000 Sep, [facility] [place] [facility] [address] [id number] [place] [address]- 7642 Sep, [facility] [place] [facility] [address] [id number] [place] [address]- 2946 Sep, [facility] [place] [facility] [address] [id number] [place] [address]- 3193 Sep, [facility] [place] [facility] [address] [id number] [place] [address]- 1740 Sep, [facility] [place] [facility] [address] [id number] [place] [address]- 4782 Sep, [facility] [place] [facility] [address] [id number] [place] [address]- 3495 Sep, [facility] [place] [facility] [address] [id number] [place] [address]- 7639 Sep, [facility] [place] [facility] [address] [id number], [place] [address]- 4862 Sep, [facility] [place] [facility] [address] [id number] [place] [address]- 8732 Sep, [facility] [place] [facility] [address] [id number] [place] [address]- 3876 Sep, [facility] [place] [facility] [address] [id number] [place] [address]- 5582 Aug, [facility] [place] [facility] [address] [id number] [place] [address]- 6729 Aug, [facility] [place] [facility] [address] [id number] [place] [address]- 2230 Aug, [facility] [address] [id number] [place] [address]- 9828 Aug, [facility] [address] [id number] [place] [address]- 1086 Aug, [facility] [address] [id number] [place] 1114 Aug, [facility] [address] [id number] [place] [address]- 2816 Aug, [facility] [address] [id number] [place] [address]- 1678 Aug, [facility] [address] [id number] [place] [address]- 9803 Aug, [facility] [place] [address] [id number] [place] [address]- 7112 Aug, [facility] [place] [address] [id number] [place] [address]- 9889 Aug, [facility] [address] [place] [id number] Aug, [facility] [place] [address] [id number] [place] [address]- 5389 Aug, [facility] [address] [id number] [place] [address]- 6027 Aug, [facility] [address] [id number] [place] [address]- 1436 Aug, [facility] [address] [id number] [place] [address]- 4295 Aug, [facility] [address] [id number] [place] [address]- 5686 Aug, [facility] [address] [id number] [place] [address]- 9063 Aug, [facility] [place] [facility] [address] [id number] [place] 1287 Aug, [facility] [place] [facility] [address] [id number] [place] [address]- 9999 Aug, [facility] [place] [facility] [address] [id number] [place] [address]- 2641 Aug, [facility] [place] [facility] [address] [id number] [place] [address]- 6092 Aug, [facility] [place] [facility] [address] [id number] [place] 9613 Aug, [facility] [place] [facility] [address] [id number] [place] [address]- 1403 Aug, [facility] [place] [facility] [address] [id number] [place] [address]- 8680 Aug, [facility] [place] [facility] [address] [id number] [place] [address]- 8149 Aug, [facility] [place] [facility] [address] [id number] [place] [address]- 7617 Aug, [facility] [place] [facility] [address] [id number] [place] [address]- 7107 Aug, [facility] [place] [facility] [address] [id number] [place] [address]- 2860 Aug, [facility] [place] [facility] [address] [id number] [place] [address]- 5571 Aug, [facility] [place] [facility] [address] [id number] [place] [address]- 3701 Jul, [facility] [place] [facility] [address] [id number] [place] [address]- 2449 Jul, [facility] [place] [facility] [address] [id number] [place] [address]- 4723 Jul, [facility] [place] [facility] [address] [id number] [place] [address]- 8462 Jul, [facility] [place] [facility] [address] [id number] [place] [address]- 6988 Jul, [facility] [place] [facility] [address] [id number] [place] [address]- 8527 Jul, [facility] [place] [facility] [address] [id number] [place] [address]- 4186 Jul, [facility] [place] [facility] [address] [id number] [place] [address]- 9134 Jul, [facility] [place] [facility] [address] [id number] [place] [address]- 2506 Jul, [facility] [place] [facility] [address] [id number] [place] [address] Jul, [facility] [place] [facility] [address] [id number] [place] [address] Jun, [facility] [place] [facility] [address] [id number], [place] [address] Jun, [facility] [place] [facility] [address] [id number] [place] [address] Jun, [facility] [place] [facility] [address] [id number], [place] [address] Jun, [facility] [place] [facility] [address] [id number], [place] [address] Jun, [facility] [place] [facility] [address] [id number], [place] [address] Jun, [facility] [place] [facility] [address] [id number] [place] [address] Jun, [facility] [place] [facility] [address] [id number], [place] [address] Jun, [facility] [place] [facility] [address] [id number] [address] Jun, [facility] [place] [facility] [address] [id number] [place] [address] Jun, 2013 [facility] [place] [facility] [address] [id number] [place] [address]44 29 Sep, 2013 [facility] [place] [facility] [address] [id number] [place] [address] 2546 29 Sep, 2013 [facility] [place] [facility] [address] [id number] [place] [address] 2540 26 Sep, 2013 [facility] [place] [facility] [address] [id number] [place] [address]40 26 Sep, 2013 [facility] [place] [facility] [address] [id number] [place] [address] 17 May, 2013 [facility] [place] [facility] [address] [id number] [place] [address] 17 May, 2013 [facility] [place] [facility] [address] [id number] [place] [address]- [address] 15 May, 2013 [facility] [place] [facility] [address] [id number] [place] [address]- [address]41 15 May, 2013 [facility] [place] [facility] [address] [id number] [place] [address] 2548 15 May, 2013 [facility] [place] [facility] [address] [id number] [place] [address]- [address] 15 May, 2013 [facility] [place] [facility] [address] [id number] [place] [address] 2546 10 May, 2013 [facility] [place] [facility] [address] [id number] [place] [address]- [address] 10 May, 2013 [facility] [place] [facility] [address] [id number] [place] [address] 254 09 Sep, 2013 [facility] [place] [facility] [address] [id number] [place] [address]- [address] 09 Sep, 2013 [facility] [place] [facility] [address] [id number] [place] [address] May, [facility] [place] [facility] [address] [id number] [place] [address] May, [facility] [place] [facility] [address] [id number] [place] [address] Apr, [facility] [place] [facility] [address] [id number] [place] [address] Apr, [facility] [place] [facility] [address] [id number] [place] [address]- [address] Apr, [facility] [place] [facility] [address] [id number] [place] [address]- [address] Apr, [facility] [place] [facility] [address] [id number] [place] [address]- [address] Apr, [facility] [place] [facility] [address] [id number] [place] [address]- [address] Apr, [facility] [place] [facility] [address] [id number] [place] [address]- [address] Apr, [facility] [place] [facility] [address] [id number] [place] [address]- [address] Apr, [facility] [place] [facility] [address] [id number] [place] [address] Apr, [facility] [place] [facility] [address] [id number] [place] [address] Apr, [facility] [place] [facility] [address] [id number] [place] [address]- [address] Apr, [facility] [place] [facility] [address] [id number] [place] [address]- [address]26 Apr, [facility] [place] [facility] [address] [id number] [place] [address]- [address] Apr, [facility] [place] [facility] [address] [id number] [place] [address]- [address] Apr, [facility] [place] [facility] [address] [id number] [place] [address]- 87[address] Apr, [facility] [place] [facility] [address] [id number] [place] [address]- [address] Mar, [facility] [place] [facility] [address] [id number] [place] [address]- [address] Mar, [facility] [place] [facility] [address] [id number] [place] [address] Mar, [facility] [place] [facility] [address] [id number] [place] [address]- [address] Mar, [facility] [place] [facility] [address] [id number] [place] [address]- 1985 Mar, [facility] [place] [facility] [address] [id number] [place] [address]- [address] Mar, [facility] [place] [facility] [address] [id number] [place] [address]- [address] Mar, [facility] [place] [facility] [address] [id number] [place] [address]- [address] Mar, [facility] [place] [facility] [address] [id number] [place] [address]- [address] Mar, [facility] [place] [facility] [address] [id number] [place] [address] 5135 Mar, [facility] [place] [facility] [address] [id number] [place] [address] 0600 Mar, [facility] [place] [facility] [address] [id number] [place] [address]- 0614 Mar, [facility] [place] [facility] [address] [id number] [place] [address]- 2923 Mar, [facility] [place] [facility] [address] [id number] [place] [address]- 1291 Mar, 2013 [facility] [place] [facility] [address] [id number] [place] [address]- 1604 Mar, 2013 [facility] [place] [facility] [address] [id number] [place] [address]- 8140 Mar, [facility] [place] [facility] [address] [id number] [place] [address]- 6342 Mar, [facility] [place] [facility] [address] [id number] [place] [address]- 9763 Mar, [facility] [place] [facility] [address] [id number] [place] [address]- 5198 Feb, [facility] [place] [facility] [address] [id number] [place] [address]- 8250 Feb, [facility] [place] [facility] [address] [id number] [place] [address]- 2689 Feb, [facility] [place] [facility] [address] [id number] [place] [address]- 5681 Feb, [facility] [place] [facility] [address] [id number] [place] [address]- 7461 Feb, [facility] [place] [facility] [address] [id number] [place] [address]- 4751 Feb, [facility] [place] [facility] [address] [id number] [place] [address]- 9813 Feb, [facility] [place] [facility] [address] [id number] [place] [address]- 1190 Feb, [facility] [place] [facility] [address] [id number] [place] [address]- 8473 Feb, [facility] [place] [facility] [address] [id number] [place] [address]- 9707 Feb, [facility] [place] [facility] [address] [id number] [place] [address]- 1333 Feb, [facility] [place] [facility] [address] [id number] [place] [address]- 2256 Feb, [facility] [place] [facility] [address] [id number] [place] [address]- 3992 Feb, [facility] [place] [facility] [address] [id number] [place] [address]- 1223 Feb, [facility] [place] [facility] [address] [id number] [place] [address]- 2305 January, [facility] [place] [facility] [address] [id number] [place] [address]- 2937 January, [facility] [place] [facility] [address] [id number] [place] [address]- 4241 January, [facility] [place] [facility] [address] [id number] [place] [address]- 1190 January, [facility] [place] [facility] [address] [id number] [place] [address]- 3192 January, [facility] [place] [facility] [address] [id number] [place] [address]- 4191 January, [facility] [place] [facility] [address] [id number] [place] [address]- 7081 January, [facility] [place] [facility] [address] [id number] [place] [address]- 0067 January, [facility] [place] [facility] [address] [id number] [place] [address]- 4368 January, [facility] [place] [facility] [address] [id number] [place] [address]- 0051 January, [facility] [place] [facility] [address] [id number] [place] [address]- 2568 January, [facility] [place] [facility] [address] [id number] [place] [address]- 1730 January, [facility] [place] [facility] [address] [id number] [place] [address]- 0249 January, [facility] [place] [facility] [address] [id number] [place] [address]- 6765 January, [facility] [place] [facility] [address] [id number] [place] [address]- 7929 Dec, [facility] [place] [facility] [address] [id number] [place] [address]- 8908 Dec, [facility] [place] [facility] [address] [id number] [place] [address]- 4556 Dec, [facility] [place] [facility] [address] [id number] [place] [address]- 7753 Dec, [facility] [place] [facility] [address] [id number] [place] [address]- 6566 Dec, [facility] [place] [facility] [address] [id number] [place] [address]- 4316 Dec, [facility] [place] [facility] [address] [id number] [place] [address]- 7622 Dec, [facility] [place] [facility] [address] [id number] [place] [address]- 4137 Dec, [facility] [place] [facility] [address] [id number] [place] [address]- 6561 Dec, [facility] [place] [facility] [address] [id number] [place] [address]- 1869 Dec, [facility] [place] [facility] [address] [id number] [place] [address]- 0131 Nov, [facility] [place] [facility] [address] [id number] [place] [address]- 6941 Nov, [facility] [place] [facility] [address] [id number] [place] [address]- 8235 Nov, [facility] [place] [facility] [address] [id number] [place] [address]- 3343 Nov, [facility] [place] [facility] [address] [id number] [place] [address]- 4226 Nov, [facility] [place] [facility] [address] [id number] [place] [address]- 0581 Nov, [facility] [place] [facility] [address] [id number] [place] [address]- 2002 Nov, [facility] [place] [facility] [address] [id number] [place] [address]- 5557 Nov, [facility] [place] [facility] [address] [id number] [place] [address]- 0449 Nov, [facility] [place] [facility] [address] [id number] [place] [address]- 1287 Nov, [facility] [place] [facility] [address] [id number] [place] [address]- 6227 Oct, [facility] [place] [facility] [address] [id number] [place] [address]- 8714 Oct, [facility] [place] [facility] [address] [id number] [place] [address]- 1922 Oct, [facility] [place] [facility] [address] [id number] [place] [address]- 4289 Oct, [facility] [place] [facility] [address] [id number] [place] [address]- 9180 Oct, [facility] [place] [facility] [address] [id number] [place] [address]- 8682 Oct, [facility] [place] [facility] [address] [id number] [place] [address]- 7392 Oct, [facility] [place] [facility] [address] [id number] [place] [address]- 9052 Oct, [facility] [place] [facility] [address] [id number] [place] [address]- 9306 Oct, [facility] [place] [facility] [address] [id number] [place] [address]- 8486 Oct, [facility] [place] [facility] [address] [id number] [place] [address]- 5516 Oct, [facility] [place] [facility] [address] [id number] [place] [address]- 5500 04 Oct, 2013 [facility] [address] [id number] [place] [address]- 6956 Oct, [facility] [place] [facility] [address] [id number] [place] [address]- 0516 Oct, [facility] [address] [id number] [place] [address]- 4659 Sep, [facility] [place] [facility] [address] [id number] [place] [address]- 7901 Sep, [facility] [address] [id number] [place] [address]- 0412 Sep, [facility] [address] [id number] [place] [address]- 0610 Sep, [facility] [address] [id number] [place] [address]- 5168 Sep, [facility] [address] [id number] [place] [address]- 0815 Sep, [facility] [address] [id number] [place] [address]- 6719 Sep, [facility] [address] [id number] [place] [address]- 4516 Sep, [facility] [address] [id number] [place] [address]- 5919 Sep, [facility] [address] [id number] [place] [address]- 0520 Sep, [facility] [place] [facility] [address] [id number] [place] [address]- 3038 Aug, [facility] [place] [facility] [address] [id number] [place] [address]- 7476 Aug, [facility] [address] [id number] [place] [address]66 Jul, [facility] [place] [facility] [address] [id number] [place] [address]- 6029 Jul, [facility] [place] [facility] [address] [id number] [place] [address]- 5305 Jul, [facility] [place] [facility] [address] [id number] [place] [address]- 9056 Jul, [facility] [place] [facility] [address] [id number] [place] [address]- 5362 Jul, [facility] [place] [facility] [address] [id number] [place] [address]- 0112 Jul, [facility] [place] [facility] [address] [id number] [place] [address]- 9342 Jul, [facility] [place] [facility] [address] [id number] [place] [address]- 2747 Jul, [facility] [place] [facility] [address] [id number], [place] [address]- 4097 Jul, [facility] [place] [facility] [address] [id number], [place] [address]- 8797 Jul, [facility] [place] [facility] [address] [id number], [place] [address]- 7443 Jul, [facility] [place] [facility] [address] [id number], [place] [address]- 7045 Jul, [facility] [place] [facility] [address] [id number], [place] [address]- 5986 Jul, [facility] [place] [facility] [address] [id number], [place] [address]- 5209 Jul, [facility] [place] [facility] [address] [id number], [place] [address]- 0468 Jul, [facility] [place] [facility] [address] [id number], [place] [address]- 0618 Jul, [facility] [place] [facility] [address] [id number], [place] [address] 2541 Jul, 2012 [facility] [place] [facility] [address] [id number] [place] [address]- 1850 Jul, 2012 [facility] [place] [facility] [address] [id number], [place] [address]- 4122 Jul, 2012 [facility] [place] [facility] [address] [id number] [place] [address]- 0581 Jun, 2012 [facility] [place] [facility] [address] [id number] [place] [address]- 9356 Jun, 2012 [facility] [place] [facility] [address] [id number] [place] [address]- 4060 Jun, 2012 [facility] [place] [facility] [address] [id number] [place] [address]- 5873 Jun, 2012 [facility] [place] [facility] [address] [id number], [place] [address]- 2169 Jun, 2012 [facility] [place] [facility] [address] [id number], [place] [address]- 9922 Jun, 2012 [facility] [place] [facility] [address] [facility] [id number], [place] [address]- 3245 Jun, 2012 [facility] [place] [facility] [address] [facility] [id number], [place] [address]- 6361 Jun, 2012 [facility] [place] [facility] [address] [id number], [place] [address]- 0623 Jun, 2012 [facility] [place] [facility] [address] [id number], [place] [address]- 1156 Jun, 2012 [facility] [place] [facility] [address] [id number], [place] [address]- 6770 Jun, [facility] [place] [facility] [address] [facility] [id number], [place] [address]- 7103 May, 2012 [facility] [place] [facility] [address] [facility] [id number], [place] [address]- 5982 25 May, 2012 [facility] [place] [facility] [address] [id number] [place] [address]- 9805 19 May, 2012 [facility] [place] [facility] [address] [id number] [place] [address]- 5926 17 May, 2012 [facility] [place] [facility] [address] [id number] [place] [address] 2546 11 May, 2012 [facility] [place] [facility] [address] [id number] [place] [address] 2546 10 May, 2012 [facility] [place] [facility] [address] [id number] [place] [address] 2544 09 May, 2013 [facility] [place] [facility] [address] [id number] [place] [address]- 0581 05 May, 2013 [facility] [place] [facility] [address] [id number] [place] [address]- 3945 Apr, [facility] [place] [facility] [address] [id number] [place] [address]- 9388 Apr, [facility] [place] [facility] [address] [id number] [place] [address]- 4077 Apr, [facility] [place] [facility] [address] [id number] [place] [address]- 7102 Apr, [facility] [place] [facility] [address] [id number] [place] [address]- 3435 Apr, [facility] [place] [facility] [address] [id number] [place] [address]- 2960 Mar, [facility] [place] [facility] [address] [id number] [place] [address]- 6200 Mar, [facility] [place] [facility] [address] [id number] [place] [address]- 0478 Mar, [facility] [place] [facility] [address] [id number] [place] [address] 2549 Mar, [facility] [place] [facility] [address] [id number] [place] [address]- 7154 Mar, [facility] [address] [id number] [place] [address]- 1170 Mar, [facility] [place] [facility] [address] [id number] [place] [address]- 3674 Mar, [facility] [place] [facility] [address] [id number] [place] [address]- 3751 Mar, [facility] [place] [facility] [address] [id number] [place] [address]- 8976 Feb, [facility] [address] [id number] [place] [address]- 5260 Feb, [facility] [address] [id number] [place] [address]- 2413 January, [facility] [place] [facility] [address] [id number] [place] [address]- 9213 January, [facility] [place] [facility] [address] [id number] [place] [address]- 5609 Dec, [facility] [place] [facility] [address] [id number] [place] [address]- 9139 Dec, [facility] [place] [facility] [address] [id number] [place] [address]- 6445 Nov, [facility] [place] [facility] [address] [id number] [place] [address]- 9640 Nov, [facility] [place] [facility] [address] [id number], [place] [address]- 9733 Nov, [facility] [place] [facility] [address] [id number] [place] [address]- 1504 Nov, [facility] [place] [facility] [address] [id number] [place] [address]- 7963 Oct, [facility] [place] [facility] [address] [id number] [place] [address]- 7477 Oct, [facility] [place] [facility] [address] [id number] [place] [address] 2546 26 Oct, 2012 [facility] [address] [id number] [place] [address] 2546 26 Oct, 2012 [facility] [place] [facility] [address] [id number] [place] [address] 2546 16 Oct, 2012 [facility] [address] [id number] [place] [address] 2546 14 Oct, 2012 [facility] [place] [facility] [address] [id number] [place] [address] 254 08 Oct, 2012 [facility] [address] [id number] [place] [address] 2546 07 Oct, [address] [facility] [address] [id number] [place] [address]- 2541 03 Oct, 2012 [facility] [address] [id number] [place] [address]- 4891 30 Sep, 2012 [facility] [address] [id number] [place] [address]- 5069 29 Sep, 2012 [facility] [address] [id number] [place] [address]- 1268 23 Sep, 2012 [facility] [address] [id number] [place] [address] 254 Sep, [facility] [address] [id number] [place] [address] 2546 17 Sep, 2012 [facility] [place] [facility] [address] [id number] [place] [address] 2541 10 Sep, 2012 [facility] [place] [facility] [address] [id number] [place] [address] 2546 09 Sep, [address] [place] [facility] [address] [id number] [place] [address] 2548 08 Sep, 2012 [facility] [place] [facility] [address] [id number] [place] [address]- 8510 Aug, [facility] [place] [facility] [address] [id number] [place] [address]- 9535 Aug, [facility] [place] [facility] [address] [id number] [place] 1566 Aug, [facility] [place] [facility] [address] [facility] [id number] [place] [address]- 9798 Aug, [facility] [place] [facility] [address] [id number] [place] [address]- 6175 Aug, [facility] [place] [facility] [address] [id number] [place] [address]- 4839 Aug, [facility] [place] [facility] [address] [id number] [place] [address]- 5455 Aug, [facility] [place] [facility] [address] [id number] [place] [address]- 6099 Aug, [facility] [place] [facility] [address] [id number], [place] [address]- 3279 Jul, [facility] [place] [facility] [address] [id number], [place] [address]- 3605 Jul, [facility] [place] [facility] [address] [facility] [id number], [place] [address]- 9859 Jul, [facility] [place] [facility] [address] [id number], [place] [address]- 2598 Jul, [facility] [place] [facility] [address] [id number], [place] [address]- 3612 Jul, [facility] [place] [facility] [address] [id number], [place] [address]- 2390 Jul, [facility] [place] [facility] [address] [facility] [id number], [place] [address]- 8165 Jun, [facility] [place] [facility] [address] [id number], [place] [address]- 4451 Jun, [facility] [place] [facility] [address] [id number] [place] [address]- 8889 23 Jun, 2012 [facility] [place] [facility] [address] [id number] [place] [address]- 1962 23 Jun, 2012 [facility] [place] [facility] [address] [id number] [place] [address]- 6365 22 Jun, 2012 [facility] [place] [facility] [address] [id number] [place] [address]- 8638 Jun, [facility] [place] [facility] [address] [id number] [place] [address]- 8552 19 Jun, 2012 [facility] [place] [facility] [address] [id number] [place] [address]- 0796 Jun, [facility] [place] [facility] [address] [id number] [place] [address]- 1993 10 Jun, 2012 [facility] [place] [facility] [address] [id number] [place] [address] 9[address] 26 May, 2012 [facility] [place] [facility] [address] [id number] [place] [address] 1005 24 May, 2012 [facility] [place] [facility] [address] [id number] [place] [address] 1839 18 May, 2012 [facility] [place] [facility] [address] [id number] [place] [address]385 30 Apr, 2012 [facility] [place] [facility] [address] [id number] [place] [address] 2548 29 Apr, 2012 [facility] [place] [facility] [address] [id number] [place] [address] 18 Apr, 2012 [facility] [place] [facility] [address] [id number] [place] [address] 5325 14 Apr, 2012 [facility] [place] [facility] [address] [id number] [place] [address] 2544 10 Apr, 2012 [facility] [place] [facility] [address] [id number] [place] [address]- [address] Apr, [facility] [place] [facility] [address] [id number] [place] [address] Mar, [facility] [place] [facility] [address] [id number] [place] [address] 27[address] Mar, [facility] [place] [facility] [address] [id number] [place] [address] Mar, [facility] [place] [facility] [address] [id number] [place] [address] 3647 Mar, [facility] [address] [id number] [place] [address] Feb, [facility] [place] [facility] [address] [id number] [place] [address] 1538 Feb, [facility] [address] [id number] [place] [address] 30[address] Feb, [facility] [address] [id number] [place] [address]15 Feb, [facility] [address] [id number] [place] [address] 5148 Feb, [facility] [place] [facility] [address] [id number] [place] [address] 7698 January, [facility] [place] [facility] [address] [id number] [place] [address]- 2432 January, [facility] [place] [facility] [address] [id number] [place] [address] January, [facility] [place] [facility] [address] [id number] [place] [address]- 2044 January, [facility] [place] [facility] [address] [id number] [place] [address] 1476 January, [facility] [place] [facility] [address] [id number] [place] [address]596 January, [facility] [place] [facility] [address] [id number] [place] [address]- 5426 24 Dec, 2011 [facility] [address] [id number] [place] [address]- 3856 24 Dec, 2011 [facility] [place] [facility] [address] [id number] [place] [address]- 2653 17 Dec, 2011 [facility] [place] [facility] [address] [id number] [place] [address]- 4686 09 Dec, 2011 [facility] [place] [facility] [address] [id number] [place] [address]- 9198 06 Dec, 2011 [facility] [place] [facility] [address] [id number] [place] [address] 2885 27 Nov, 2011 [facility] [place] [facility] [address] [id number] [place] [address]- 3627 14 Nov, 2011 [facility] [place] [facility] [address] [facility] [id number] [place] [address] 3300 Nov, [facility] [place] [facility] [address] [id number] [place] [address]- 295[address] 07 Nov, 2011 [facility] [place] [facility] [address] [id number] [place] [address]- 0433 29 Oct, 2011 [facility] [place] [facility] [address] [id number] [place] [address]- 5362 28 Oct, 2011 [facility] [place] [facility] [address] [id number] [place] [address]- 6619 24 Oct, 2011 [facility] [place] [facility] [address] [id number] [place] [address]- 5512 13 Oct, 2011 [facility] [place] [facility] [address] [id number] [place] [address]- 4193 08 Oct, 2011 [facility] [place] [facility] [address] [id number] [place] [address]- 9706 31 Sep, 2011 [facility] [place] [facility] [address] [id number] [place] [address]- 1498 30 Sep, 2011 [facility] [place] [facility] [address] [id number] [place] [address]- 6399 Sep, [facility] [place] [facility] [address] [id number] [place] [address]- 0157 Sep, [facility] [place] [facility] [address] [id number] [place] [address]- 6005 Sep, [facility] [place] [facility] [address] [id number] [place] [address]- 4708 Sep, [facility] [place] [facility] [address] [id number] [place] [address]- 4563 Aug, [facility] [place] [facility] [address] [id number] [place] [address]- 7020 Aug, [facility] [place] [facility] [address] [id number] [place] [address]- 3703 Aug, [facility] [place] [facility] [address] [id number] [place] [address]- 3825 Jul, [facility] [place] [facility] [address] [id number] [place] [address]- 9981 Jul, [facility] [place] [facility] [address] [id number] [place] [address]- 2660 Jul, [facility] [place] [facility] [address] [id number] [place] [address]- 0413 Jul, [facility] [place] [facility] [address] [id number] [place] [address]- 2381 Jun, [facility] [place] [facility] [address] [id number] [place] [address]- 4554 Jun, [facility] [place] [facility] [address] [id number] [place] [address]- 4001 Jun, [facility] [place] [facility] [address] [id number] [place] [address]- 1727 Jun, [facility] [place] [facility] [address] [id number] [place] [address]- 3715 10 Jun, 2011 [facility] [place] [facility] [address] [id number] [place] [address]- 8746 10 Jun, 2011 [facility] [place] [facility] [address] [id number] [place] [address]- 6306 11 Mar, 2011 [facility] [place] [facility] [address] [id number] [place] [address]- 4586 18 Dec, 2010 [facility] [place] [facility] [address] [id number] [place] [address]- 3335 11 Dec, 2010 [facility] [place] [facility] [address] [id number] [place] [address]- 9410 18 Nov, 2010 [facility] [place] [facility] [address] [id number] [place] [address]- 1758 16 Nov, 2010 [facility] [place] [facility] [address] [id number] [place] [address]- 5871 10 Sep, 2010 [facility] [place] [facility] [address] [id number] [place] [address]- 2424 31 Aug, 2010 [facility] [place] [facility] [address] [id number] [place] [address]- 3803 29 Aug, 2010 [facility] [place] [facility] [address] [id number] [place] [address]- 6597 29 Aug, 2010 [facility] [place] [facility] [address] [id number] [place] [address]- 5596 29 Aug, 2010 [facility] [place] [facility] [address] [id number] [place] [address]- 2544 27 Aug, 2010 [facility] [place] [facility] [address] [id number] [place] [address] 2546 14 Aug, 2010 [facility] [place] [facility] [address] [id number] [place] [address]- 1230 08 Aug, 2010 [facility] [place] [facility] [address] [id number] [place] [address]- 9450 08 Aug, 2010 [facility] [place] [facility] [address] [id number] [place] [address]- 2598 Aug, [facility] [address] [id number] [place] [address]- 7586 Aug, [facility] [facility] [address] [id number] [place] [address] Aug, [facility] [address] [id number] [place] [address] Aug, [facility] [place] [facility] [address] [id number] [place] [address] Jul, [facility] [address] [id number] [place] [address] Jul, [facility] [address] [id number] [place] [address] Jul, [facility] [address] [facility] [id number] [place] [address] Jul, [facility] [address] [id number] [place] [address] Jul, [facility] [address] [facility] [id number] [place] [address] Jul[facility] [address] [facility] [id number] [place] [address] 24 Jun, 2010 [facility] [place] [facility] [address] [id number] [place] [address] Jun, [facility] [place] [facility] [address] [id number] [place] [address] Jun, [facility] [facility] [address] [id number] [place] [address] Jun, [facility] [place] [facility] [address] [facility] [id number] [place] [address] Apr, [facility] [address] [id number] [place] [address] Mar, [facility] [place] [facility] [address] [id number] [place] [address] 17 Feb, 2010 [facility] [place] [facility] [address] [id number] [place] [address] January, [facility] [address] [id number] [place] [address] 15 Dec, 2009 [facility] [address] [id number] [place] [address] Nov, [facility] [address] [id number] [place] [address] Aug, [facility] [address] [id number] [place] [address] Aug, [facility] [address] [facility] [id number] [place] [address] Aug, [facility] [address] [id number], [place] [address] Jul, [facility] [address] [facility] [id number], [place] [address] Jul, [facility] [address] [facility] [id number], [place] [address] Jul, [facility] [address] [facility] [id number], [place] [address] 30 Jun, 2009 [facility] [address] [id number], [place] [address] 29 Jun, 2009 [facility] [address] [id number], [place] [address] Jun, [facility] [address] [id number], [place] [address] Jun, [facility] [address] [id number][place] [address] 12 Jun, 2009 [facility] [address] [id number], [place] [address] Jun, [facility] [address] [facility] [id number] [place] [id number] [address] Apr, [facility] [address] [facility] [id number][place] [address] Apr, [facility] [address] [facility] [id number], [place] [address] Feb, [facility] [address] [facility] [id number], [place] [address] January, [facility] [address] [facility] [id number], [place] [address] Dec, IMMUNIZATIONS No Known Immunizations SOCIAL HISTORY Never Assessed REASON FOR VISIT request return call PLAN OF CARE VITAL SIGNS [...] inability to urinate 09/16/15 Hospitalization History [facility] early Hospitalization History hyperkalemia 10/2017 Hospitalization History fluid in lung
--- OUTSIDE RECORDS SUMMARY | 2018-08-08 13:30 | XMS REPORT ---
Author Author NOEMI WASHBURN [facility] Address [address] [place] [address] Care Team Providers Care Civil Draftsman Name Role Phone NOEMI WASHBURN Unavailable PROBLEMS Type Condition ICD9-CM Code MZN78-YB Code Onset Dates Condition Status SNOMED Code Problem Chronic lymphocytic leukemia C91.10 Active 09790045 Problem Eye exam abnormal R93.8 Active 494179938 Problem Lymphocytosis D72.820 Active 31907622 Problem Eustachian tube dysfunction, unspecified laterality H69.80 Active 68591398 Problem Dysuria R30.0 Active 14233555 Problem Cough R05 Active 36068622 Problem Polyneuropathy associated with underlying disease G63 Active 326202421 Problem Hypokalemia E87.6 Active 64064587 Problem Bilateral primary osteoarthritis of knee M17.0 Active 780356243 Problem Benign prostatic hyperplasia with lower urinary tract symptoms, unspecified morphology N40.1 Active 308630504 Problem Retinal edema H35.81 Active 6075585 Problem 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 Active 957416866 Problem Anemia of chronic illness D63.8 Active 776203986 Problem Other chronic pain G89.29 Active 08126457 Problem Other iron deficiency anemia D50.8 Active 58383012 Problem Leukocytosis D72.829 Active 250874186 Problem Chronic pain G89.29 Active 63638157 Problem DM neuro manif type II E11.49 Active 13526998 Problem Bipolar disorder, in partial remission, most recent episode depressed F31.75 Active 09911378 Problem Falling R29.6 Active 000338219 Problem Primary osteoarthritis of right knee M17.11 Active 594522150487343 Problem Pure hypercholesterolemia E78.00 Active 515322677 Problem Bipolar I disorder, most recent episode (or current) mixed, moderate F31.62 Active 49132035 Problem Insomnia, unspecified type G47.00 Active 564374418 Problem Diabetes E11.9 Active 32841451 Problem Reactive airway disease J45.909 Active 205713677718 Problem Essential hypertension I10 Active 54617939 Problem Diabetic polyneuropathy associated with type 2 diabetes mellitus E11.42 Active 22169505 Problem Anxiety F41.9 Active 32911628 Problem Morbid obesity E66.01 Active 650101699 ALLERGIES No Information ENCOUNTERS Encounter Location Date Diagnosis [facility] [id number] [place] [address] 65008- 6008 Jul, [facility] [id number] [place] [address] 86446- 0914 Jul, [facility] [id number] [place] [address] 81127- 0588 Jul, [facility] [id number] [place] [address] 70522- 3565 Jul, [facility] [id number] [place] [address] 88651- 8479 Jul, Bipolar I disorder, most recent episode (or current) mixed, moderate F31.62 [facility] [id number] [place] [address] 62311- 4507 Jul, Chronic pain G89.29 [facility] [id number] [place] [address] 10348- 1351 Jun, Bipolar I disorder, most recent episode (or current) mixed, moderate F31.62 [facility] [id number] [place] [address] 91852- 1523 Jun, Pre-procedure lab exam Z01.812 [facility] [id number] [place] [address] 63908- 1363 Jun, [facility] [id number] [place] [address] [id number] Jun, [facility] [id number] [place] [address] 51299- 2941 Jun, [facility] [id number] [place] [address] 21395- 6616 Jun, Forgetfulness R68.89 ; Pre-syncope R55 ; Localized edema R60.0 ; Other iron deficiency anemia D50.8 and BMI 50.0-59.9, adult Z68.43 [facility] [id number] [place] [address] 77220- 8127 Jun, Chronic pain G89.29 [facility] [address] 61091- 6784 Jun, Chronic pain G89.29 [facility] [address] 65004- 1709 Jun, Bipolar I disorder, most recent episode (or current) mixed, moderate F31.62 [facility] [address] 08519- 6222 May, Chronic pain G89.29 [facility] [address] 64919- 4873 Apr, [facility] [address] 02861- 0625 Apr, Chronic pain G89.29 [facility] [address] 79783- 9604 Apr, Primary osteoarthritis of right knee M17.11 [facility] [address] 76817- 3569 Mar, [facility] [address] 64973- 9970 Mar, BMI 50.0-59.9, adult Z68.43 and Bipolar disorder, in partial remission, most recent episode depressed F31.75 [facility] [address] 55738- 9936 Mar, Diabetes E11.9 ; Pure hypercholesterolemia E78.00 ; Essential hypertension I10 ; Nausea with vomiting, unspecified R11.2 and Headache, unspecified headache type R51 [address] [place] [address]- 7382 Mar, Bipolar I disorder, most recent episode (or current) mixed, moderate F31.62 [facility] [id number] [place] [address] 27077- 1335 Mar, Bipolar I disorder, most recent episode (or current) mixed, moderate F31.62 [facility] [id number] [place] [address] 26090- 0658 Mar, Chronic pain G89.29 [facility] [id number] [place] [address] 15555- 6909 Mar, Bipolar I disorder, most recent episode (or current) mixed, moderate F31.62 [facility] [id number] [place] [address] 91598- 5089 Feb, Bipolar I disorder, most recent episode (or current) mixed, moderate F31.62 [facility] [id number] [place] [address] 55997- 2837 Feb, Chronic pain G89.29 [facility] [id number] [place] [address] 75623- 5973 Feb, Decubitus ulcer of right foot, stage 3 L89.893 and BMI 50.0- 59.9, adult Z68.43 [facility] [address] [address]- 3772 Feb, Bipolar I disorder, most recent episode (or current) mixed, moderate F31.62 [facility] [address] [address]- 2316 Feb, [facility] [id number] [place] [address] 26692- 7834 January, [facility] [id number] [place] [address] 15963- 3934 January, Chronic pain G89.29 [facility] [id number] [place] [address] 83729- 1787 January, Bipolar I disorder, most recent episode (or current) mixed, moderate F31.62 [facility] [id number] [place] [address] 04765- 3090 January, Bipolar I disorder, most recent episode (or current) mixed, moderate F31.62 [facility] [id number] [place] [address] 44259- 4465 Dec, Bipolar I disorder, most recent episode (or current) mixed, moderate F31.62 and BMI 50.0-59.9, adult Z68.43 [facility] [id number] [place] [address] 17703- 6705 Dec, Bipolar I disorder, most recent episode (or current) mixed, moderate F31.62 [facility] [id number] [place] [address] 89532- 8358 Dec, Chronic pain G89.29 [facility] [address] 60553- 7066 Dec, DM neuro manif type II E11.49 ; Right flank pain R10.9 ; correction 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 Z79.891 ; Encounter for medication monitoring Z51.81 and BMI 50.0-59.9, adult Z68.43 [facility] [address] [place] [address] 69136- 2040 Dec, Bipolar I disorder, most recent episode (or current) mixed, moderate F31.62 [facility] [address] [place] [address] 46623- 8327 Nov, Bipolar I disorder, most recent episode (or current) mixed, moderate F31.62 [facility] [id number] [place] [address] 46154- 6104 Nov, Chronic pain G89.29 [facility] [address] [place] [address] 09239- 6555 Nov, Bipolar I disorder, most recent episode (or current) mixed, moderate F31.62 [facility] [id number] [place] [address] 51645- 4190 Nov, Hypokalemia E87.6 [facility] [address] 026352- 0206 Nov, Bipolar I disorder, most recent episode (or current) mixed, moderate F31.62 [facility] [address] 231907- 9779 Oct, Chronic pain G89.29 [facility] [address] 095206- 5325 Oct, BMI 50.0-59.9, adult Z68.43 and Bipolar I disorder, most recent episode (or current) mixed, moderate F31.62 [facility] [address] 81768- 3139 Oct, Bipolar I disorder, most recent episode (or current) mixed, moderate F31.62 [facility] [id number] [place] [address] 73718- 8611 Oct, [facility] [address] 763308- 0396 Oct, Hypokalemia E87.6 [facility] [id number] [place] [address] 96021- 9771 Oct, DM neuro manif type II E11.49 [facility] [id number] [place] [address] 97360- 7746 Oct, Bipolar I disorder, most recent episode (or current) mixed, moderate F31.62 [facility] [address] 95002- 5217 Oct, Bipolar I disorder, most recent episode (or current) mixed, moderate F31.62 [facility] [id number] [place] [address] 29293- 3997 14 Oct, 2017 Hyperkalemia E87.5 ; Falling R29.6 ; BMI 50.0-59.9, adult Z68.43 and Acute left ankle pain M25.572 [facility] [address] 05374- 1412 08 Oct, 2017 DM neuro manif type II E11.49 [facility] [address] 83763- 9902 Oct, [facility] [address] 49507- 4343 Sep, Chronic pain G89.29 [facility] [address] 54074- 9097 Sep, [facility] [address] 84119- 6051 Sep, Bilateral primary osteoarthritis of knee M17.0 [facility] [address] 70847- 5816 Sep, Generalized edema R60.1 [facility] [address] 91525- 6808 Sep, Bipolar I disorder, most recent episode (or current) mixed, moderate F31.62 [facility] [id number] [place] [address] 60628- 7495 Sep, Hypoxia R09.02 ; Other hypervolemia E87.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 ; Anemia of chronic illness D63.8 and BMI 50.0- 59.9, adult Z68.43 [facility] [address] 33249- 3475 Sep, [facility] [address] 09547- 6844 Sep, Bipolar I disorder, most recent episode (or current) mixed, moderate F31.62 [facility] [address], [place] [address]- 2718 28 Aug, 2017 Chronic pain G89.29 [facility] [id number] [place] [address] 02125- 5438 Aug, Generalized edema R60.1 [facility] [id number] [place] [address] 40447- 7959 Aug, [facility] [id number] [place] [address] 167548- 7357 Aug, [facility] [id number] [place] [address] 40340- 9875 14 Aug, 2017 Bipolar I disorder, most recent episode (or current) mixed, moderate F31.62 [facility] [id number] [place] [address] 38378- 2518 Aug, Bipolar I disorder, most recent episode (or current) mixed, moderate F31.62 [facility] [id number] [place] [address] 70776- 8199 04 Aug, 2017 Chronic pain G89.29 [facility] [id number] [place] [address] 68829- 9068 30 Jul, 2017 Bipolar I disorder, most recent episode (or current) mixed, moderate F31.62 [facility] [address] [place] [address] 86166- 2160 Jul, Bipolar I disorder, most recent episode (or current) mixed, moderate F31.62 and BMI 60.0-69.9, adult Z68.44 [facility] [address] [place] [address] 43953- 0867 16 Jul, 2017 Bipolar I disorder, most recent episode (or current) mixed, moderate F31.62 [facility] [address], [place] [address]- 2860 06 Jul, 2017 Chronic pain G89.29 [facility] [id number] [place] [address] 20102- 4274 Jul, Bipolar I disorder, most recent episode (or current) mixed, moderate F31.62 [facility] [address] [place] [address] 24437- 0844 Jun, Polyneuropathy associated with underlying disease G63 and Diabetes E11.9 [facility] [id number] [place] [address] 88989- 4934 Jun, Bipolar I disorder, most recent episode (or current) mixed, moderate F31.62 [facility] [address] [place] [address] 18408- 5850 Jun, Chronic pain G89.29 [facility] [id number] [place] [address] 67259- 5973 May, Bipolar I disorder, most recent episode (or current) mixed, moderate F31.62 [facility] [id number] [place] [address] 46256- 8288 May, Bipolar I disorder, most recent episode (or current) mixed, moderate F31.62 [facility] [id number] [place] [address] 84330- 4220 20 May, 2017 Diabetic polyneuropathy associated with type 2 diabetes mellitus E11.42 [facility] [address] [place] [address] 84356- 9439 18 May, 2017 Bipolar I disorder, most recent episode (or current) mixed, moderate F31.62 [facility] [address] [place] [address] 34837- 7237 13 May, 2017 Bipolar I disorder, most recent episode (or current) mixed, moderate F31.62 [facility] [id number] [place] [address] 86708- 5959 May, Chronic pain G89.29 [facility] [address] [place] [address] 82535- 1318 Apr, Bipolar I disorder, most recent episode (or current) mixed, moderate F31.62 [facility] [address], [place] [address]- 1677 Apr, [facility] [id number] [place] [address] 56890- 7416 Apr, Chronic pain G89.29 and DM neuro manif type II E11.49 [facility] [id number] [place] [address] 11415- 6516 Apr, [facility] [id number] [place] [address] 57168- 5663 Apr, Bipolar I disorder, most recent episode (or current) mixed, moderate F31.62 [facility] [id number] [place] [address] 18208- 1829 Apr, Chronic pain G89.29 [facility] [id number] [place] [address] 56819- 3447 Apr, Iliotibial band syndrome, left M76.32 [facility] [id number] [place] [address] 82566- 0969 Apr, Bipolar I disorder, most recent episode (or current) mixed, moderate F31.62 [facility] [id number] [place] [address] 40074- 5627 Mar, Bipolar I disorder, most recent episode (or current) mixed, moderate F31.62 [facility] [address] [place] [address] 18385- 3430 Mar, Bipolar I disorder, most recent episode (or current) mixed, moderate F31.62 [facility] [address] [place] [address] 13131- 0403 Mar, [facility] [id number] [place] [address] 72185- 2443 Mar, Bipolar I disorder, most recent episode (or current) mixed, moderate F31.62 [facility] [address] [place] [address] 69103- 0236 Mar, Chronic pain G89.29 [facility] [address], [place] [address]- 7453 Mar, Bipolar I disorder, most recent episode (or current) mixed, moderate F31.62 [facility] [address], [place] [address]- 9712 Mar, Bipolar I disorder, most recent episode (or current) mixed, moderate F31.62 [facility] [id number] [place] [address] 77723- 5556 Mar, Acute pain of left knee M25.562 ; Left hip pain M25.552 ; Generalized edema R60.1 and Tongue swelling R22.0 [facility] [id number] [place] [address] 07666- 6512 Mar, [facility] [id number] [place] [address] 01469- 5535 Feb, Chronic pain G89.29 [facility] [id number] [place] [address] 82180- 5671 Feb, Diabetes E11.9 [facility] [address] [place] [address] 03342- 5498 January, Chronic pain G89.29 [facility] [address] [place] [address] 19289- 0437 January, [facility] [id number] [place] [address] 40203- 5450 January, Bipolar I disorder, most recent episode (or current) mixed, moderate F31.62 [facility] [id number] [place] [address] 84752- 7815 Dec, Bipolar I disorder, most recent episode (or current) mixed, moderate F31.62 [facility] [address], [place] [address]- 6350 Dec, Chronic pain G89.29 [facility] [address] [address]- 7429 Dec, Bipolar I disorder, most recent episode (or current) mixed, moderate F31.62 [facility] [id number] [place] [address] 30054- 4909 Dec, Diabetes E11.9 ; Essential hypertension I10 ; Chronic pain G89.29 and Morbid obesity E66.01 [facility] [id number] [place] [address] 32548- 6923 Dec, [facility] [address] [place] [address] 75630- 2531 Dec, Bipolar I disorder, most recent episode (or current) mixed, moderate F31.62 [facility] [address] [place] [address] 60174- 1534 Dec, Bipolar I disorder, most recent episode (or current) mixed, moderate F31.62 [facility] [address] [place] [address] 91701- 7581 Nov, Chronic pain G89.29 [facility] [id number] [place] [address] 57615- 6816 Nov, Bipolar I disorder, most recent episode (or current) mixed, moderate F31.62 [facility] [id number] [place] [address] 55233- 9001 Nov, [facility] [id number] [place] [address] 02753- 1060 Nov, Bipolar I disorder, most recent episode (or current) mixed, moderate F31.62 [facility] [id number] [place] [address] 38334- 2946 Nov, Bipolar I disorder, most recent episode (or current) mixed, moderate F31.62 [facility] [address] [place] [address] 93094- 0442 Nov, [facility] [id number] [place] [address] 73107- 1076 Nov, [facility] [address], [place] [address]- 1944 Nov, [facility] [id number] [place] [address] 45426- 2375 Oct, Chronic pain G89.29 [facility] [address] [place] [address] 61863- 0217 Oct, Bipolar I disorder, most recent episode (or current) mixed, moderate F31.62 [facility] [address] [place] [address] 17640- 6389 Oct, [facility] [id number] [place] [address] 66769- 7560 Oct, Chronic pain G89.29 ; Diabetes E11.9 ; Anxiety F41.9 and 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 [facility] [id number] [place] [address] 16872- 8111 Oct, [facility] [address] [place] [address] 03603- 9722 Oct, Diabetes E11.9 [facility] [address] [place] [address] 23125- 6201 Oct, Bipolar I disorder, most recent episode (or current) mixed, moderate F31.62 [facility] [address], [place] [address]- 9368 Sep, Chronic pain G89.29 [facility] [address], [place] [address]- 0785 Sep, Chronic pain G89.29 [facility] [id number] [place] [address] 14565- 4949 Aug, Chronic pain G89.29 [facility] [address] [place] [address] 47169- 8973 Jul, [facility] [id number] [place] [address] 41115- 7966 Jul, Diabetes E11.9 [facility] [id number] [place] [address] 67019- 4959 Jul, Chronic pain G89.29 [facility] [address] [place] [address] 48807- 7260 Jul, Bipolar I disorder, most recent episode (or current) mixed, moderate F31.62 [facility] [id number] [place] [address] 93119- 7697 Jun, Bipolar I disorder, most recent episode (or current) mixed, moderate F31.62 [facility] [id number] [place] [address] 61333- 4108 Jun, [facility] [id number] [place] [address] 35254- 4006 Jun, Bipolar I disorder, most recent episode (or current) mixed, moderate F31.62 [facility] [id number] [place] [address] 04211- 3999 30 May, 2016 Insomnia, unspecified type G47.00 [facility] [id number] [place] [address] 69789- 0883 May, Bipolar I disorder, most recent episode (or current) mixed, moderate F31.62 [facility] [id number] [place] [address] 22145- 7802 14 May, 2016 [facility] [id number] [place] [address] 86416- 0530 08 May, 2016 Bipolar I disorder, most recent episode (or current) mixed, moderate F31.62 [facility] [id number] [place] [address] 22310- 9963 06 May, 2016 Diabetes E11.9 and Essential hypertension I10 [facility] [id number] [place] [address] 00961- 6448 Apr, Chronic pain G89.29 [facility] [address], [place] [address]- 8578 Apr, Bipolar I disorder, most recent episode (or current) mixed, moderate F31.62 [facility] [address] [place] [address] 75151- 3940 Apr, [facility] [id number] [place] [address] 47102- 1532 Apr, [facility] [id number] [place] [address] 72364- 5402 Mar, Chronic pain G89.29 ; Headache, unspecified headache type R51 ; Neuropathy G62.9 ; Pain of right hip joint M25.551 and Essential hypertension I10 [facility] [address] [place] [address] 59455- 1191 Mar, Chronic pain G89.29 [facility] [id number] [place] [address] 74144- 5975 Mar, Bipolar I disorder, most recent episode (or current) mixed, moderate F31.62 [facility] [place] [address] [place] [id number] [place] [address] 09824- 3432 Feb, Bipolar I disorder, most recent episode (or current) mixed, moderate F31.62 and Insomnia, unspecified type G47.00 [place] [id number] [place] [address] 99320- 6156 Feb, Chronic pain G89.29 [place] [address] [place] [id number] [place] [address] 38867- 5365 Feb, Bipolar I disorder, most recent episode (or current) mixed, moderate F31.62 [place] [address] [place] [id number] [place] [address] 81514- 8647 January, Bipolar I disorder, most recent episode (or current) mixed, moderate F31.62 [place] [address] [place] [id number] [place] [address] 57513- 1666 January, Chronic pain G89.29 [facility] [address] [place] [id number] [place] [address] 29682- 2387 January, Chronic pain G89.29 and Essential hypertension I10 [facility] [address] [place] [id number] [place] [address] 52108- 2916 January, Bipolar I disorder, most recent episode (or current) mixed, moderate F31.62 [facility] [address] 420[address]- [address]01 Dec, [facility] [address] 81994- 98[address] Dec, [facility] [address] [address]- [address] Dec, [facility] [address] [address] [address] Dec, [facility] [address] [address]- 5109 Nov, Reactive airway disease J45.909 [facility] [address] 86799- 9062 Nov, [facility] [id number] [place] [address] 98952- 3196 Nov, [facility] [id number] [place] [address] 91967- 9535 Nov, [facility] [id number] [place] [address] 88372- 4851 Nov, [facility] [address] 77140- 8718 Nov, Onychomycosis B35.1 ; Hammertoe M20.40 ; [place] or callus L84 and DM neuro manif type II E11.49 [facility] [id number] [place] [address] 77719- 3148 15 Nov, 2015 Chronic pain G89.29 ; Leukocytosis D72.829 and Diabetes E11.9 [facility] [id number] [place] [address] 84619- 6354 Nov, [facility] [id number] [place] [address] 02073- 4212 Oct, Bronchitis J40 [facility] [id number] [place] [address] 17022- 7913 Oct, [facility] [address] 73978- 0126 Oct, [facility] [address] 36751- 3091 Oct, Mastoiditis, unspecified laterality H70.90 and Type 2 diabetes mellitus with complication E11.8 [facility] [id number] [place] [address] 39903- 4259 Sep, [facility] [id number] [place] [address] 22399- 8347 Sep, Dysuria R30.0 ; Cough R05 ; Benign prostatic hyperplasia with lower urinary tract symptoms, unspecified morphology N40.1 ; Hypokalemia E87.6 and Eustachian tube dysfunction, unspecified laterality H69.80 [facility] [id number] [place] [address] 62498- 6158 Sep, Moderate mixed bipolar I disorder F31.62 [facility] [id number] [place] [address] 89201- 9966 Sep, Hypokalemia E87.6 [facility] [id number] [place] [address] 84098- 2363 Sep, [facility] [id number] [place] [address] 87562- 7579 Sep, Upper respiratory tract infection, unspecified type J06.9 [facility] [id number] [place] [address] 96615- 8822 Aug, [facility] [address] [address]- 4841 Aug, Dysuria R30.0 [facility] [address] [address]- 6005 Aug, [facility] [address] [address]- 3824 Jul, [facility] [id number] [place] [address] 662487- 6140 Jul, [facility] [address], [place] [address]- 9761 Jul, [facility] [id number] [place] [address] 583280- 5272 Jul, [facility] [id number] [place] [address] 96699- 3317 Jun, [facility] [id number] [place] [address] 91890- 5378 Jun, [facility] [id number] [place] [address] 32297- 6518 Jun, [facility] [address], [place] [address]- 0253 May, [facility] [address] [address]- 6064 May, Bipolar I disorder, most recent episode (or current) mixed, moderate 296.62 [facility] [address] [address]- 2940 16 May, 2015 [facility] [address] 3124 02 May, 2015 Bipolar I disorder, most recent episode (or current) mixed, moderate 296.62 and Major depressive disorder, recurrent episode, severe, specified as with psychotic behavior 296.34 [facility] [address], [place] [address]- 9650 May, Bipolar I disorder, most recent episode (or current) mixed, moderate 296.62 [facility] [id number] [place] [address] 170068- 5013 May, [facility] [id number] [place] [address] 27561- 5027 Apr, [facility] [id number] [place] [address] 42840- 7751 Apr, [facility] [id number] [place] [address] 79086- 4317 Apr, Unspecified disorder of kidney and ureter 593.9 and Diabetes mellitus type 2, uncontrolled 250.02 [facility] [id number] [place] [address] 63202- 5262 Apr, [facility] [id number] [place] [address] 59355- 7090 Apr, [facility] [id number] [place] [address] 90433- 3236 Apr, [facility] [id number] [place] [address] 42941- 3285 Apr, [facility] [id number] [address]- 9699 Apr, Diabetes mellitus type II, uncontrolled 250.02 [facility] [address], [place] [address]- 5884 Apr, [facility] [id number] [place] [address] 17719- 6854 Mar, [facility] [id number] [place] [address] 62812- 5780 Mar, [facility] [address], [place] [address]- 7236 Mar, [facility] [id number] [place] [address] 06365- 9172 Mar, Major depressive disorder, recurrent episode, severe, specified as with psychotic behavior 296.34 and Bipolar I disorder, most recent episode (or current) mixed, moderate 296.62 [facility] [id number] [place] [address] 16296- 7722 Mar, Diabetes 250.00 ; Anuria 788.5 ; Nausea and vomiting 787.01 and Diarrhea 787.91 [facility] [id number] [place] [address] 80251- 7218 Mar, Diabetes 250.00 [facility] [id number] [place] [address] 11652- 0745 Mar, [facility] [id number] [place] [address] 06635- 0029 Mar, Diabetes 250.00 [facility] [id number] [place] [address] 73082- 7690 Mar, [facility] [id number] [place] [address] 52882- 7813 Mar, [facility] [id number] [place] [address] 93564- 1605 Mar, [facility] [id number] [place] [address] 94956- 1221 Mar, [facility] [id number] [place] [address] 14508- 4862 Mar, Bipolar I disorder, most recent episode (or current) mixed, moderate 296.62 and Major depressive disorder, recurrent episode, severe, specified as with psychotic behavior 296.34 [facility] [id number] [place] [address] 17002- 8940 Mar, Magnesium deficiency 275.2 ; Hypokalemia 276.8 ; Nausea & vomiting 787.01 and Diabetes mellitus type 2, uncontrolled 250.02 [facility] [address] [address]- 2081 Feb, [facility] [id number] [place] [address] 45577- 3432 Feb, Bipolar I disorder, most recent episode (or current) mixed, moderate 296.62 [facility] [id number] [place] [address] 80122- 3157 Feb, Nausea and vomiting 787.01 ; Left elbow pain 719.42 ; Anuria 788.5 and Diabetes 250.00 [facility] [address] 92224- 6893 Feb, [facility] [address] 52802- 9982 Feb, Hypopotassemia 276.8 and Hypokalemia 276.8 [facility] [id number] [place] [address] 88116- 1450 Feb, Hypopotassemia 276.8 and Hypokalemia 276.8 [facility] [id number] [place] [address] 37475- 4150 Feb, Seborrheic keratoses 702.19 [facility] [id number] [place] [address] 86196- 5836 Feb, Hypopotassemia 276.8 and Low magnesium levels 275.2 [facility] [id number] [place] [address] 92720- 6565 January, [facility] [id number] [place] [address] 15506- 5109 January, [facility] [id number] [place] [address] 81349- 6264 January, [facility] [id number] [place] [address] 00593- 6094 January, Scalp lesion 709.9 [facility] [id number] [place] [address] 62878- 2225 January, [facility] [address] 07833- 5423 30 Dec, 2014 Tear of medial cartilage or meniscus of knee, current 836.0 and 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 [address] [id number] [place] [address]- 9426 Dec, [facility] [address] [id number], [place] [address]- 2806 Dec, [facility] [address] [facility] [id number], [place] [address] 2546 Dec, Squamous cell carcinoma, 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 [facility] [place] [address] [id number] [place] [address]- 9656 14 Dec, 2014 [facility] [id number] [address]- 7957 Dec, [facility] [id number], [place] [address]- 3360 Nov, [facility] [address] [facility] [id number], [place] [address]- 0264 Nov, [facility] [address] [facility] [id number], [place] [address]- 1351 Nov, [facility] [address] [facility] [id number], [place] [address]- 6287 Nov, [facility] [address] [id number] [address]- 2541 Nov, [facility] [address] [facility] [id number]- 0218 Nov, [facility] [address] [facility] [id number] 9886 Nov, [facility] [address] [facility] [id number]34[place]- 3832 Nov, [facility] [address] [facility] [id number]- 0976 Nov, [facility] [address] [id number] [place] [address]- 5466 Nov, [facility] [place] [facility] [address] [id number] [place] [address]- 9320 Nov, [facility] [place] [facility] [address] [id number] [place] [address]- 5660 Nov, [facility] [place] [facility] [address] [id number] [place] [address]- 4481 Oct, 2014 [facility] [place] [facility] [address] [id number] [place] [address]- 8090 Oct, 2014 [facility] [place] [facility] [address] [id number] [place] [address]- 4172 Oct, 2014 [facility] [place] [facility] [address] [facility] [id number] [place] [address]- 2571 Oct, 2014 [facility] [place] [facility] [address] [facility] [id number] [place] [address]- 8695 Oct, 2014 [facility] [place] [facility] [address] [facility] [id number] [place] [address]- 5335 Oct, [facility] [place] [facility] [address] [facility] [id number] [place] [address]- 6980 Oct, [facility] [place] [facility] [address] [facility] [id number] [place] [address]- 5792 Oct, [facility] [place] [facility] [address] [facility] [id number][place] [address]- 7402 Oct, [facility] [place] [facility] [address] [facility] [id number] [place] [address]- 1773 Sep, [facility] [place] [facility] [address] [id number] [place] [address]- 2441 Sep, [facility] [place] [facility] [address] [facility] [id number] [place] [address]- 0037 Sep, [facility] [place] [facility] [address] [facility] [id number], [place] [address]- 1634 Sep, [facility] [place] [facility] [address] [id number] [place] [address]- 5036 Sep, [facility] [place] [facility] [address] [id number] [place] [address]- 6316 Sep, [facility] [place] [facility] [address] [id number] [place] [address]- 4060 Sep, [facility] [place] [facility] [address] [id number] [place] [address]- 0702 Sep, [facility] [place] [facility] [address] [id number] [place] [address]- 5335 Sep, [facility] [place] [facility] [address] [id number] [place] [address]- 6860 Sep, [facility] [place] [facility] [address] [id number] [place] [address]- 5054 Sep, [facility] [place] [facility] [address] [id number] [place] [address]- 9797 Sep, [facility] [place] [facility] [address] [id number] [place] [address]- 7339 Sep, [facility] [place] [facility] [address] [id number] [place] [address]- 7656 Sep, [facility] [place] [facility] [address] [id number] [place] [address]- 3226 Sep, [facility] [place] [facility] [address] [id number] [place] [address]- 8246 Sep, [facility] [place] [facility] [address] [id number] [place] [address]- 8299 Aug, [facility] [place] [facility] [address] [id number] [place] [address]- 1478 Aug, [facility] [place] [facility] [address] [id number] [place] [address]- 6458 Aug, [facility] [place] [facility] [address] [id number] [place] [address]- 9550 Aug, [facility] [address] [id number] [place] [address]- 1342 Aug, [facility] [address] [id number] [place] [address]- 0672 Aug, [facility] [address] [id number] [place] [address]- 9676 Aug, [facility] [address] [id number] [place] [address]- 1776 Aug, [facility] [address] [id number] [place] [address]- 6203 Aug, [facility] [address] [id number] [place] [address]- 8129 Aug, [facility] [address] [id number] [place] [address]- 6181 Aug, [facility] [address] [place] [id number] Aug, [facility] [address] [id number] [place] [address]- 3093 Aug, [facility] [address] [id number] [place] [address]- 6342 Aug, [facility] [address] [id number] [place] [address]- 2997 Aug, [facility] [address] [id number] [place] [address]- 8959 Aug, [facility] [address] [id number] [place] [address]- 7547 Aug, [facility] [address] [id number] [place] [address]- 3814 Aug, [facility] [address] [id number] [place] [address]- 1822 Aug, [facility] [place] [facility] [address] [id number] [place] [address]- 6521 Aug, [facility] [place] [facility] [address] [id number] [place] [address]- 0379 Aug, [facility] [place] [facility] [address] [id number] [place] [address]- 0230 Aug, [facility] [place] [facility] [address] [id number] [place] 6364 Aug, [facility] [place] [facility] [address] [id number] [place] [address]- 8467 Aug, [facility] [place] [facility] [address] [id number] [place] [address]- 9031 Aug, [facility] [place] [facility] [address] [id number] [place] [address]- 2711 Aug, [facility] [place] [facility] [address] [id number] [place] [address]- 5790 Aug, [facility] [place] [facility] [address] [id number] [place] [address]- 1261 Aug, [facility] [place] [facility] [address] [id number] [place] [address]- 5917 Aug, [facility] [place] [facility] [address] [id number] [place] [address]- 1566 Aug, [facility] [place] [facility] [address] [id number] [place] [address]- 4463 Jul, [facility] [place] [facility] [address] [id number] [place] [address]- 1897 Jul, [facility] [place] [facility] [address] [id number] [place] [address]- 3664 Jul, [facility] [place] [facility] [address] [id number] [place] 5877 Jul, [facility] [place] [facility] [address] [id number] [place] [address]- 5903 Jul, [facility] [place] [facility] [address] [id number] [place] [address]- 8963 Jul, [facility] [place] [facility] [address] [id number] [place] 2172 Jul, [facility] [place] [facility] [address] [id number] [place]- 9695 Jul, [facility] [place] [facility] [address] [id number] [place] [address]- 0950 Jul, [facility] [place] [facility] [address] [id number] [place] [address]- 6918 Jul, [facility] [place] [facility] [address] [id number] [place] [address]- 7832 Jun, [facility] [place] [facility] [address] [id number] [place] [address]- 6676 Jun, [facility] [place] [facility] [address] [id number], [place] [address]- 6530 Jun, [facility] [place] [facility] [address] [id number] [place] [address]- 1259 Jun, [facility] [place] [facility] [address] [id number], [place] [address]- 0194 Jun, [facility] [place] [facility] [address] [id number], [place] [address]- 7037 Jun, [facility] [place] [facility] [address] [id number], [place] [address]- 7582 Jun, [facility] [place] [facility] [address] [id number] [place] [address]- 4352 Jun, [facility] [place] [facility] [address] [id number][place]- 2089 Jun, [facility] [place] [facility] [address] [id number][place] 5921 Jun, [facility] [place] [facility] [address] [id number] [place] [address] 2541 29 Sep, 2013 [facility] [place] [facility] [address] [id number] [place] [address] 2546 29 Sep, 2013 [facility] [place] [facility] [address] [id number] [place] [address] 2546 26 Sep, 2013 [facility] [place] [facility] [address] [id number] [place] [address] 2546 26 Sep, 2013 [facility] [place] [facility] [address] [id number] [place] [address] 2546 17 Sep, 2013 [facility] [place] [facility] [address] [id number] [place] [address]- 8999 17 Sep, 2013 [facility] [place] [facility] [address] [id number] [place] [address]- 2544 15 Sep, 2013 [facility] [place] [facility] [address] [id number] [place] [address] 2545 15 Sep, 2013 [facility] [place] [facility] [address] [id number] [place] [address]- 2542 15 Sep, 2013 [facility] [place] [facility] [address] [id number] [place] [address] 2547 15 Sep, 2013 [facility] [place] [facility] [address] [id number] [place] [address] 2549 10 Sep, 2013 [facility] [place] [facility] [address] [id number] [place] [address] 2546 10 Sep, 2013 [facility] [place] [facility] [address] [id number] [place] [address] 254 09 Sep, 2013 [facility] [place] [facility] [address] [id number] [place] [address] 2546 09 Sep, 2013 [facility] [place] [facility] [address] [id number] [place] [address] 2540 04 Sep, 2013 [facility] [place] [facility] [address] [id number] [place] [address] 7020 May, [facility] [place] [facility] [address] [id number] [place] [address]- 4688 Apr, [facility] [place] [facility] [address] [id number] [place] [address]- 9944 Apr, [facility] [place] [facility] [address] [id number] [place] [address]- 5755 Apr, [facility] [place] [facility] [address] [id number] [place] [address]- 3826 Apr, [facility] [place] [facility] [address] [id number] [place] [address] Apr, [facility] [place] [facility] [address] [id number] [place] [address] Apr, [facility] [place] [facility] [address] [id number] [place] [address] Apr, [facility] [place] [facility] [address] [id number] [place] [address] Apr, [facility] [place] [facility] [address] [id number] [place] [address] Apr, [facility] [place] [facility] [address] [id number] [place] [address] Apr, [facility] [place] [facility] [address] [id number] [place] [address] Apr, [facility] [place] [facility] [address] [id number] [place] [address] Apr, [facility] [place] [facility] [address] [id number] [place] [address] Apr, [facility] [place] [facility] [address] [id number] [place] [address] Apr, [facility] [place] [facility] [address] [id number] [place] [address] Apr, [facility] [place] [facility] [address] [id number] [place] [address] Mar, 2013 [facility] [place] [facility] [address] [id number] [place] [address]- [address] Mar, 2013 [facility] [place] [facility] [address] [id number] [place] [address] Mar, 2013 [facility] [place] [facility] [address] [id number] [place] [address]- [address] Mar, 2013 [facility] [place] [facility] [address] [id number] [place] [address]- [address] Mar, 2013 [facility] [place] [facility] [address] [id number] [place] [address] Mar, 2013 [facility] [place] [facility] [address] [id number] [place] [address]- [address] Mar, 2013 [facility] [place] [facility] [address] [id number] [place] [address]- [address] Mar, 2013 [facility] [place] [facility] [address] [id number] [place] [address]- [address] Mar, 2013 [facility] [place] [facility] [address] [id number] [place] [address]- [address] Mar, 2013 [facility] [place] [facility] [address] [id number] [place] [address]- [address] Mar, 2013 [facility] [place] [facility] [address] [id number] [place] [address]- [address] Mar, 2013 [facility] [place] [facility] [address] [id number] [place] [address]- [address] Mar, 2013 [facility] [place] [facility] [address] [id number] [place] [address]- [address] Mar, 2013 [facility] [place] [facility] [address] [id number] [place] [address]- [address] Mar, 2013 [facility] [place] [facility] [address] [id number] [place] [address]- [address] Mar, 2013 [facility] [place] [facility] [address] [id number] [place] [address]- [address] Mar, [facility] [place] [facility] [address] [id number] [place] [address]- [address] Mar, [facility] [place] [facility] [address] [id number] [place] [address] Feb, [facility] [place] [facility] [address] [id number] [place] [address]- [address] Feb, [facility] [place] [facility] [address] [id number] [place] [address]- [address] Feb, [facility] [place] [facility] [address] [id number] [place] [address]- [address] Feb, [facility] [place] [facility] [address] [id number] [place] [address]- [address] Feb, [facility] [place] [facility] [address] [id number] [place] [address] Feb, [facility] [place] [facility] [address] [id number] [place] [address]- [address] Feb, [facility] [place] [facility] [address] [id number] [place] [address]- [address] Feb, [facility] [place] [facility] [address] [id number] [place] [address]- [address] Feb, [facility] [place] [facility] [address] [id number] [place] [address]- [address] Feb, [facility] [place] [facility] [address] [id number] [place] [address]- [address] Feb, [facility] [place] [facility] [address] [id number] [place] [address]- [address] Feb, [facility] [place] [facility] [address] [id number] [place] [address]- 359[address] Feb, [facility] [place] [facility] [address] [id number] [place] [address]- [address] Feb, [facility] [address] [id number] [place] [address] January, [facility] [place] [facility] [address] [id number] [place] [address]- [address] January, [facility] [place] [facility] [address] [id number] [place] [address]- [address] January, [facility] [place] [facility] [address] [id number] [place] [address] January, [facility] [place] [facility] [address] [id number] [place] [address] January, [facility] [place] [facility] [address] [id number] [place] [address]- [address] January, [facility] [place] [facility] [address] [id number] [place] [address]- [address] January, [facility] [place] [facility] [address] [id number] [place] [address] January, [facility] [place] [facility] [address] [id number] [place] [address] 2[address] January, [facility] [place] [facility] [address] [id number] [place] [address] 4061 January, [facility] [place] [facility] [address] [id number] [place] [address] 7279 January, [facility] [place] [facility] [address] [id number] [place] [address] 1890 January, [facility] [place] [facility] [address] [id number] [place] [address] 2119 January, [facility] [place] [facility] [address] [id number] [place] [address]- 0550 January, [facility] [place] [facility] [address] [id number] [place] [address]- 3205 Dec, [facility] [place] [facility] [address] [id number] [place] [address]- 7613 Dec, [facility] [place] [facility] [address] [id number] [place] [address]- 9442 Dec, [facility] [place] [facility] [address] [id number] [place] [address]- 9362 Dec, [facility] [place] [facility] [address] [id number] [place] [address]- 8396 Dec, [facility] [place] [facility] [address] [id number] [place] [address]- 5524 Dec, [facility] [place] [facility] [address] [id number] [place] [address]- 5178 Dec, [facility] [place] [facility] [address] [id number] [place] [address]- 5355 Dec, [facility] [place] [facility] [address] [id number] [place] [address]- 0044 Dec, [facility] [place] [facility] [address] [id number] [place] [address]- 4526 Dec, [facility] [place] [facility] [address] [id number] [place] [address]- 4852 Nov, [facility] [place] [facility] [address] [id number] [place] [address]- 6944 Nov, [facility] [place] [facility] [address] [id number] [place] [address]- 0078 Nov, [facility] [place] [facility] [address] [id number] [place] [address]- 7499 Nov, [facility] [place] [facility] [address] [id number] [place] [address]- 3085 Nov, [facility] [place] [facility] [address] [id number] [place] [address]- 8274 Nov, [facility] [place] [facility] [address] [id number] [place] [address]- 0477 Nov, [facility] [place] [facility] [address] [id number] [place] [address]- 1288 Nov, [facility] [place] [facility] [address] [id number] [place] [address]- 2845 Nov, [facility] [place] [facility] [address] [id number] [place] [address]- 2472 Nov, [facility] [place] [facility] [address] [id number] [place] [address]- 6331 Oct, [facility] [place] [facility] [address] [id number] [place] [address]- 5235 Oct, [facility] [place] [facility] [address] [id number] [place] [address]- 2908 Oct, [facility] [place] [facility] [address] [id number] [place] [address]- 1011 Oct, [facility] [place] [facility] [address] [id number] [place] [address]- 5182 Oct, [facility] [place] [facility] [address] [id number] [place] [address]- 5931 Oct, [facility] [place] [facility] [address] [id number] [place] [address]- 9124 Oct, [facility] [place] [facility] [address] [id number] [place] [address]- 2292 Oct, [facility] [place] [facility] [address] [id number] [place] [address]- 5164 Oct, [facility] [place] [facility] [address] [id number] [place] [address]- 8245 Oct, [facility] [place] [facility] [address] [id number] [place] [address]- 8184 Oct, [facility] [place] [facility] [address] [id number] [place] [address]- 9755 Oct, [facility] [place] [facility] [address] [id number] [place] [address]- 3302 Oct, [facility] [address] [id number] [place] [address]- 2832 Oct, [facility] [address] [id number] [place] [address]- 1856 Sep, [facility] [address] [id number] [place] [address]- 7394 Sep, [facility] [address] [id number] [place] [address]- 6890 Sep, [facility] [address] [id number] [place] [address]- 3686 Sep, [facility] [address] [id number] [place] [address]- 1645 Sep, [facility] [address] [id number] [place] [address]- 9620 Sep, [facility] [address] [id number] [place] [address]- 3588 Sep, [facility] [address] [id number] [place] [address]- 0295 Sep, [facility] [address] [id number] [place] [address]- 8989 Sep, [facility] [address] [id number] [place] [address]- 7131 Sep, [facility] [address] [id number] [place] [address]- 7189 Aug, [facility] [place] [facility] [address] [id number] [place] [address]- 3059 Aug, [facility] [address] [id number] [place] [address]- 2684 Jul, [facility] [address] [id number] [place] [address] Jul, [facility] [place] [facility] [address] [id number] [place] [address]- 7797 Jul, [facility] [place] [facility] [address] [id number] [place] [address]- 4391 Jul, [facility] [place] [facility] [address] [id number] [place] [address]- 8536 Jul, [facility] [place] [facility] [address] [id number] [place] [address]- 0280 Jul, [facility] [place] [facility] [address] [id number] [place] [address]- 3385 Jul, [facility] [place] [facility] [address] [id number] [place] [address]- 3916 Jul, [facility] [place] [facility] [address] [id number] [place] [address]- 8478 Jul, [facility] [place] [facility] [address] [id number], [place] [address]- 7791 Jul, [facility] [place] [facility] [address] [id number], [place] [address]- 7923 Jul, [facility] [place] [facility] [address] [id number], [place] [address]- 5164 Jul, [facility] [place] [facility] [address] [id number], [place] [address]- 8094 Jul, [facility] [place] [facility] [address] [id number], [place] [address]- 3312 Jul, [facility] [place] [facility] [address] [id number], [place] [address]- 1390 Jul, [facility] [place] [facility] [address] [id number], [place] [address]- 0694 Jul, [facility] [place] [facility] [address] [id number], [place] [address]- 1193 Jul, [facility] [place] [facility] [address] [id number], [place] [address] 2548 Jul, 2012 [facility] [place] [facility] [address] [id number] [place] [address]- 8699 Jul, 2012 [facility] [place] [facility] [address] [id number], [place] [address]- 9735 Jun, 2012 [facility] [place] [facility] [address] [id number] [place] [address]- 7847 Jun, 2012 [facility] [place] [facility] [address] [id number] [place] [address]- 0114 Jun, 2012 [facility] [place] [facility] [address] [id number] [place] [address]- 8603 Jun, 2012 [facility] [place] [facility] [address] [id number] [place] [address]- 6088 Jun, 2012 [facility] [place] [facility] [address] [id number], [place] [address]- 6211 Jun, 2012 [facility] [place] [facility] [address] [id number], [place] [address]- 2079 Jun, 2012 [facility] [place] [facility] [address] [facility] [id number], [place] [address]- 6938 Jun, 2012 [facility] [place] [facility] [address] [facility] [id number], [place] [address]- 2038 Jun, [facility] [place] [facility] [address] [id number], [place] [address]- 6616 Jun, 2012 [facility] [place] [facility] [address] [id number], [place] [address]- 5921 Jun, [facility] [place] [facility] [address] [id number], [place] [address]- 7537 May, 2012 [facility] [place] [facility] [address] [facility] [id number], [place] [address]- 7497 25 May, 2012 [facility] [place] [facility] [address] [id number], [place] [address]- 9275 19 May, 2012 [facility] [place] [facility] [address] [id number] [place] [address]- 4193 17 May, 2012 [facility] [place] [facility] [address] [id number] [place] [address]- 8296 11 May, 2012 [facility] [place] [facility] [address] [id number] [place] [address] 2546 10 May, 2012 [facility] [place] [facility] [address] [id number] [place] [address] 2546 09 May, 2013 [facility] [place] [facility] [address] [id number] [place] [address] 2545 05 May, 2013 [facility] [place] [facility] [address] [id number] [place] [address]- 5822 Apr, [facility] [place] [facility] [address] [id number] [place] [address]- 5845 Apr, [facility] [place] [facility] [address] [id number] [place] [address]- 2575 Apr, [facility] [place] [facility] [address] [id number] [place] [address]- 8506 Apr, [facility] [place] [facility] [address] [id number] [place] [address]- 6533 Apr, [facility] [place] [facility] [address] [id number] [place] [address]- 0976 Mar, [facility] [place] [facility] [address] [id number] [place] [address]- 2795 Mar, [facility] [place] [facility] [address] [id number] [place] [address]- 9463 Mar, [facility] [place] [facility] [address] [id number] [place] [address]- 8624 Mar, [facility] [place] [facility] [address] [id number] [place] [address]- 4420 Mar, [facility] [place] [facility] [address] [id number] [place] [address]- 4513 Mar, [facility] [address] [id number] [place] [address]- 9865 Mar, [facility] [place] [facility] [address] [id number] [place] [address]- 3764 Mar, [facility] [address] [id number] [place] [address]- 1232 Feb, [facility] [place] [facility] [address] [id number] [place] [address]- 1386 Feb, [facility] [address] [id number] [place] [address]- 6661 January, [facility] [address] [id number] [place] [address]- 4797 January, [facility] [address] [id number] [place] [address]- 2604 Dec, [facility] [place] [facility] [address] [id number] [place] [address]- 1276 Dec, [facility] [address] [id number] [place] [address]- 6528 Nov, [facility] [place] [facility] [address] [id number] [place] [address]- 5410 Nov, [facility] [place] [facility] [address] [id number], [place] [address]- 4859 Nov, [facility] [place] [facility] [address] [id number], [place] [address]- 0947 Nov, [facility] [place] [facility] [address] [id number] [place] [address]- 8639 Oct, [facility] [place] [facility] [address] [id number] [place] [address]- 6949 Oct, [facility] [place] [facility] [address] [id number] [place] [address]- 9651 Oct, [facility] [place] [facility] [address] [id number] [place] [address]- 0100 26 Oct, 2012 [facility] [address] [id number] [place] [address]- 8416 16 Oct, 2012 [facility] [address] [id number] [place] [address] 2546 14 Oct, 2012 [facility] [address] [id number] [place] [address] 2546 08 Oct, 2012 [facility] [address] [id number] [place] [address] 2542 07 Oct, 2012 [facility] [address] [id number] [place] [address] 2546 03 Oct, 2012 [facility] [address] [id number] [place] [address]- 9827 30 Sep, 2012 [facility] [address] [id number] [place] [address]- 2697 29 Sep, 2012 [facility] [address] [id number] [place] [address]- 2161 Sep, [facility] [address] [id number] [place] [address]- 9391 Sep, [facility] [address] [id number] [place] [address]- 8096 17 Sep, 2012 [facility] [address] [id number] [place] [address]- 7455 Sep, [facility] [address] [id number] [place] [address] 2549 09 Sep, 2012 [facility] [place] [facility] [address] [id number] [place] [address] [address], [address] [facility] [place] [facility] [address] [id number] [place] [address] 2543 31 Aug, 2012 [facility] [place] [facility] [address] [id number] [place] [address]- 4680 Aug, [facility] [place] [facility] [address] [id number] [place] [address]- 3471 Aug, [facility] [place] [facility] [address] [id number] [place] [address] Aug, [facility] [place] [facility] [address] [facility] [id number] [place] 3670 Aug, [facility] [place] [facility] [address] [id number] [place] 4571 Aug, [facility] [place] [facility] [address] [id number] [place] [address]- 6483 Aug, [facility] [place] [facility] [address] [id number] [place] [address]- 5052 Aug, [facility] [place] [facility] [address] [id number] [place] [address]- 7431 Jul, [facility] [place] [facility] [address] [id number], [place] [address]- 5662 Jul, [facility] [place] [facility] [address] [id number], [place] [address]- 6619 Jul, [facility] [place] [facility] [address] [id number], [place] [address]- 1965 Jul, [facility] [place] [facility] [address] [id number], [place] [address]- 9040 Jul, [facility] [place] [facility] [address] [id number], [place] [address]- 2387 Jul, [facility] [place] [facility] [address] [id number], [place] [address]- 9236 Jun, [facility] [place] [facility] [address] [id number], [place] [address]- 7140 Jun, [facility] [place] [facility] [address] [facility] [id number], [place] [address]- 3311 Jun, [facility] [place] [facility] [address] [id number] [place] [address]- 8166 23 Jun, 2012 [facility] [place] [facility] [address] [id number] [place] [address]- 8033 Jun, [facility] [place] [facility] [address] [id number] [place] [address]- 9026 Jun, [facility] [place] [facility] [address] [id number] [place] [address]- 7154 Jun, [facility] [place] [facility] [address] [id number] [place] [address]- 3110 Jun, [facility] [place] [facility] [address] [id number] [place] [address]- 5752 10 Jun, 2012 [facility] [place] [facility] [address] [id number] [place] [address]- 2752 26 May, 2012 [facility] [place] [facility] [address] [id number] [place] [address]- 5552 24 May, 2012 [facility] [place] [facility] [address] [id number] [place] [address]- 5182 18 May, 2012 [facility] [place] [facility] [address] [id number] [place] [address]- 6819 30 Apr, 2012 [facility] [place] [facility] [address] [id number] [place] [address]- 1164 29 Apr, 2012 [facility] [place] [facility] [address] [id number] [place] [address] 2549 Apr, [facility] [place] [facility] [address] [id number] [place] [address]- 6544 14 Apr, 2012 [facility] [place] [facility] [address] [id number] [place] [address]- 5027 Apr, [facility] [place] [facility] [address] [id number] [place] [address]- 7277 Apr, [facility] [place] [facility] [address] [id number] [place] [address]- 4032 Mar, [facility] [place] [facility] [address] [id number] [place] [address]- 9274 Mar, [facility] [place] [facility] [address] [id number] [place] [address]- 5911 Mar, [facility] [address] [id number] [place] [address]- 3013 Mar, [facility] [place] [facility] [address] [id number] [place] [address]- 0070 Feb, [facility] [address] [id number] [place] [address]- 8316 Feb, [facility] [address] [id number] [place] [address]- 8949 Feb, [facility] [address] [id number] [place] [address]- 8872 Feb, [facility] [address] [id number] [place] [address]- 2897 Feb, [facility] [address] [id number] [place] [address]- 2975 January, [facility] [address] [id number] [place] [address]- 0420 January, [facility] [address] [id number] [place] [address]- 1260 January, [facility] [place] [facility] [address] [id number] [place] [address]- 3159 January, [facility] [place] [facility] [address] [id number] [place] [address]- 2566 January, [facility] [place] [facility] [address] [id number] [place] [address]- 3626 January, [facility] [place] [facility] [address] [id number] [place] [address]- 8872 Dec, [facility] [place] [facility] [address] [id number], [place] [address]- 0579 24 Dec, 2011 [facility] [address] [id number] [place] [address]- 0313 17 Dec, 2011 [facility] [place] [facility] [address] [id number] [place] [address]- 1436 09 Dec, 2011 [facility] [place] [facility] [address] [facility] [id number] [place] [address]- 3646 06 Dec, 2011 [facility] [place] [facility] [address] [id number] [place] [address]- 2226 27 Nov, 2011 [facility] [place] [facility] [address] [id number] [place] [address]- 1349 14 Nov, 2011 [facility] [place] [facility] [address] [id number] [place] [address]- 9210 Nov, [facility] [address] [id number] [place] [address]- 7798 Nov, [facility] [place] [facility] [address] [id number] [place] [address]- 4279 29 Oct, 2011 [facility] [place] [facility] [address] [id number] [place] [address]- 9877 28 Oct, 2011 [facility] [place] [facility] [address] [facility] [id number] [place] [address] 24 Oct, 2011 [facility] [place] [facility] [address] [id number] [place] [address] 13 Oct, 2011 [facility] [place] [facility] [address] [id number] [place] [address] 08 Oct, 2011 [facility] [place] [facility] [address] [id number] [place] [address] Sep, [facility] [place] [facility] [address] [id number] [place] [address] 30 Sep, 2011 [facility] [place] [facility] [address] [facility] [id number] [address] Sep, [facility] [place] [facility] [address] [id number] [place] [address] Sep, [facility] [place] [facility] [address] [id number] [place] [address] Sep, [facility] [place] [facility] [address] [id number] [place] [address] Sep, [facility] [place] [facility] [address] [id number] [place] [address] Aug, [facility] [place] [facility] [address] [id number] [place] [address] Aug, [facility] [place] [facility] [address] [id number] [place] [address] 3468 Aug, [facility] [place] [facility] [address] [id number] [place] [address] 3928 Jul, [facility] [place] [facility] [address] [id number] [place] [address]177 Jul, [facility] [place] [facility] [address] [id number] [place] [address]199 Jul, [facility] [place] [facility] [address] [id number] [place] [address]- 9465 Jul, [facility] [place] [facility] [address] [id number] [place] [address]- [address]644 Jun, [facility] [place] [facility] [address] [id number] [place] [address]- [address] Jun, [facility] [place] [facility] [address] [id number] [place] [address]- 1583 Jun, [facility] [place] [facility] [address] [id number] [place] [address]- 8088 Jun, [facility] [place] [facility] [address] [id number] [place] [address] 6034 Jun, [facility] [place] [facility] [address] [id number] [place] [address]- 0421 10 Jun, 2011 [facility] [place] [facility] [address] [id number] [place] [address]- 4741 11 Mar, 2011 [facility] [place] [facility] [address] [id number] [place] [address]- 6926 18 Dec, 2010 [facility] [place] [facility] [address] [id number] [place] [address]- 3536 11 Dec, 2010 [facility] [place] [facility] [address] [id number] [place] [address]- 1846 18 Nov, 2010 [facility] [place] [facility] [address] [id number] [place] [address]- 2040 16 Nov, 2010 [facility] [place] [facility] [address] [id number] [place] [address]- 7399 10 Sep, 2010 [facility] [place] [facility] [address] [id number] [place] [address]- 5475 31 Aug, 2010 [facility] [place] [facility] [address] [id number] [place] [address]- 8680 29 Aug, 2010 [facility] [place] [facility] [address] [id number] [place] [address]- 4165 29 Aug, 2010 [facility] [place] [facility] [address] [id number] [place] [address]- 3529 29 Aug, 2010 [facility] [place] [facility] [address] [id number] [place] [address]- 9432 27 Aug, 2010 [facility] [place] [facility] [address] [id number] [place] [address] 2546 14 Aug, 2010 [facility] [place] [facility] [address] [id number] [place] [address] 2546 08 Aug, 2010 [facility] [place] [facility] [address] [id number] [place] [address]- 2541 08 Aug, 2010 [facility] [place] [facility] [address] [id number] [place] [address]- 2546 07 Aug, 2010 [facility] [place] [facility] [address] [id number] [place] [address]- 8911 Aug, [facility] [address] [id number] [place] [address] 8006 Aug, [facility] [place] [facility] [address] [id number] [place] [address] 2546 Aug, [facility] [address] [id number] [place] [address]- 9596 Jul, [facility] [place] [facility] [address] [id number] [place] [address] 2541 Jul, [facility] [address] [id number] [address] [address], [place] [address]- [address]349 Jul, [facility] [address] [id number] [place] [address]- 8580 Jul, [facility] [address] [facility] [id number] [place] [address]- 57[address] Jul, [facility] [address] [id number] [place] [address]- 480[address] Jul, [facility] [place] [facility] [address] [id number] [place] [address]- 1826 24 Jun, 2010 [facility] [address] [facility] [id number] [place] [address] Jun, [facility] [place] [facility] [address] [id number] [place] [address] 2544 Jun, [facility] [place] [facility] [address] [id number] [place] [address]- 2929 Jun, [facility] [place] [facility] [address] [id number] [place] [address]- [address]116 16 Apr, 2010 [facility] [place] [facility] [address] [id number] [place] [address] 2546 Mar, [facility] [place] [facility] [address] [id number] [place] [address]- 3053 Feb, [facility] [place] [facility] [address] [id number] [place] [address]- 1703 11 Jan, 2010 [facility] [place] [facility] [address] [id number] [place] [address] 15 Dec, 2009 [facility] [place] [facility] [address] [id number] [place] [address]- 7438 Nov, [facility] [place] [facility] [address] [id number] [place] [address]- 0922 Aug, [facility] [address] [id number] [place] [address]- 5490 Aug, [facility] [place] [facility] [address] [id number] [place] [address]- 4187 Aug, [facility] [place] [facility] [address] [facility] [id number] [place] [address]- 5719 Jul, [facility] [place] [facility] [address] [id number] [address]67 Jul, [facility] [address] [facility] [id number] [address] Jul, [facility] [address] [facility] [id number], [place] [address] 30 Jun, 2009 [facility] [address] [facility] [id number], [place] [address] 29 Jun, 2009 [facility] [address] [id number], [place] [address] Jun, [facility] [address] [id number], [place] [address] Jun, [facility] [address] [id number], [place] [address] Jun, [facility] [address] [facility] [id number][place] [address] Jun, [facility] [address] [id number], [place] [address] Apr, [facility] [address] [facility] [id number] [place] [address] Apr, [facility] [address] [id number], [place] [address] Feb, [facility] [address] [facility] [id number], [place] [address] January, [facility] [address] [facility] [id number], [place] [address] Dec, IMMUNIZATIONS No Known Immunizations SOCIAL HISTORY Never Assessed REASON FOR VISIT MTM (Medication Therapy Management) PLAN OF CARE VITAL SIGNS MEDICATIONS Unknown [...] obesity Medical History skin cancer-basal cell R restorationism (removed) Medical History Arthritis Medical History degenerative [...] tunnel release (Left) 2000 Surgical History EGD ([facility]) 2009 Surgical History colonoscopy 2009 ([facility]), [place] [facility]) Surgical History heart 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 04/2014 Surgical History carotid US 05/2014 Surgical History resection of skin cancer from Right restorationism Surgical History Biopsy of Lung Bilateral/Left lung lymph node 09/2016 Surgical History Bone Marrow Biopsy Surgical History port in the right chest wall 12/2016 Hospitalization History [facility] low potassium, low magnesium, chest painina 01/2015 Hospitalization History inability to urinate 09/16/15 Hospitalization History [facility] early Hospitalization History hyperkalemia 10/2017 Hospitalization History fluid in lung
--- OUTSIDE RECORDS SUMMARY | 2018-08-08 13:31 | XMS REPORT ---
Author Author NOEMI WASHBURN [facility] Address [address] [place] [address] Care Team Providers Care Supervisor Slashing Department Name Role Phone NOEMI WASHBURN Unavailable PROBLEMS Type Condition ICD9-CM Code UQS26-RD Code Onset Dates Condition Status SNOMED Code Problem Chronic lymphocytic leukemia C91.10 Active 96966293 Problem Eye exam abnormal R93.8 Active 976103276 Problem Lymphocytosis D72.820 Active 80291453 Problem Eustachian tube dysfunction, unspecified laterality H69.80 Active 30497579 Problem Dysuria R30.0 Active 35993331 Problem Cough R05 Active 78643167 Problem Polyneuropathy associated with underlying disease G63 Active 037893016 Problem Hypokalemia E87.6 Active 99591138 Problem Bilateral primary osteoarthritis of knee M17.0 Active 174464493 Problem Benign prostatic hyperplasia with lower urinary tract symptoms, unspecified morphology N40.1 Active 155255987 Problem Retinal edema H35.81 Active 7629260 Problem 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 Active 900632207 Problem Anemia of chronic illness D63.8 Active 167320325 Problem Other chronic pain G89.29 Active 53218507 Problem Other iron deficiency anemia D50.8 Active 27832967 Problem Leukocytosis D72.829 Active 484712261 Problem Chronic pain G89.29 Active 97389678 Problem DM neuro manif type II E11.49 Active 19418303 Problem Bipolar disorder, in partial remission, most recent episode depressed F31.75 Active 86533391 Problem Falling R29.6 Active 991959049 Problem Primary osteoarthritis of right knee M17.11 Active 251721667792072 Problem Pure hypercholesterolemia E78.00 Active 001096001 Problem Bipolar I disorder, most recent episode (or current) mixed, moderate F31.62 Active 15441580 Problem Insomnia, unspecified type G47.00 Active 265943156 Problem Diabetes E11.9 Active 92742042 Problem Reactive airway disease J45.909 Active 001308234385 Problem Essential hypertension I10 Active 32521112 Problem Diabetic polyneuropathy associated with type 2 diabetes mellitus E11.42 Active 27032127 Problem Anxiety F41.9 Active 75477275 Problem Morbid obesity E66.01 Active 120246699 ALLERGIES No Information ENCOUNTERS Encounter Location Date Diagnosis [facility] [id number] [place] [address] 00330- 9163 Jul, [place] [address] 65876- 1153 Jul, [place] [address] 51852- 8505 Jul, Chronic pain G89.29 [place] [address] 44231- 3134 Jun, Bipolar I disorder, most recent episode (or current) mixed, moderate F31.62 [place] [address] 56940- 7784 Jun, Pre-procedure lab exam Z01.812 [place] [address] 71169- 4908 Jun, [facility] [address] [id number] Jun, [place] [id number] [place] [address] 53866- 5427 Jun, [place] [address] 56656- 6444 Jun, Forgetfulness R68.89 ; Pre-syncope R55 ; Localized edema R60.0 ; Other iron deficiency anemia D50.8 and BMI 50.0-59.9, adult Z68.43 [facility] [id number] [place] [address] 84018- 4485 Jun, Chronic pain G89.29 [facility] [address] 42714- 4361 Jun, Chronic pain G89.29 [place] [id number] [place] [address] 53828- 3337 Jun, Bipolar I disorder, most recent episode (or current) mixed, moderate F31.62 [place] [address] [address] 3195 May, Chronic pain G89.29 [place] [id number] [place] [address] 31339- 7601 Apr, [place] [id number] [place] [address] 26920- 4381 Apr, Chronic pain G89.29 [place] [id number] [place] [address] 51502- 6074 Apr, Primary osteoarthritis of right knee M17.11 [place] [id number] [place] [address] 75398- 0241 Mar, [place] [id number] [place] [address] 68655- 1862 Mar, BMI 50.0-59.9, adult Z68.43 and Bipolar disorder, in partial remission, most recent episode depressed F31.75 [place] [id number] [place] [address] 35720- 2963 Mar, Diabetes E11.9 ; Pure hypercholesterolemia E78.00 ; Essential hypertension I10 ; Nausea with vomiting, unspecified R11.2 and Headache, unspecified headache type R51 [place] [id number] [place] [address] 80013- 5164 Mar, Bipolar I disorder, most recent episode (or current) mixed, moderate F31.62 [place] [id number] [place] [address] 23580- 8184 Mar, Bipolar I disorder, most recent episode (or current) mixed, moderate F31.62 [place] [id number] [place] [address] 43749- 5065 Mar, Chronic pain G89.29 [facility] [address] [address]- 1112 Mar, Bipolar I disorder, most recent episode (or current) mixed, moderate F31.62 [facility] [id number] [place] [address] 63003- 1790 Feb, Bipolar I disorder, most recent episode (or current) mixed, moderate F31.62 [facility] [id number] [place] [address] 06983- 9032 Feb, Chronic pain G89.29 [place] [id number] [place] [address] 34054- 7442 Feb, Decubitus ulcer of right foot, stage 3 L89.893 and BMI 50.0- 59.9, adult Z68.43 [place] [id number] [place] [address] 44987- 4377 Feb, Bipolar I disorder, most recent episode (or current) mixed, moderate F31.62 [facility] [id number] [place] [address] 46118- 2147 Feb, [facility] [id number] [place] [address] 04940- 8586 January, [facility] [id number] [place] [address] 73679- 8808 January, Chronic pain G89.29 [facility] [id number] [place] [address] 37126- 7183 January, Bipolar I disorder, most recent episode (or current) mixed, moderate F31.62 [facility] [id number] [place] [address] 06034- 2391 January, Bipolar I disorder, most recent episode (or current) mixed, moderate F31.62 [facility] [id number] [place] [address] 09356- 6357 Dec, Bipolar I disorder, most recent episode (or current) mixed, moderate F31.62 and BMI 50.0-59.9, adult Z68.43 [place] [id number] [place] [address] 14425- 7855 Dec, Bipolar I disorder, most recent episode (or current) mixed, moderate F31.62 [place] [id number] [place] [address] 75622- 5200 Dec, Chronic pain G89.29 [place] [address] 58229- 9712 Dec, DM neuro manif type II E11.49 ; Right flank pain R10.9 ; residential 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 Z79.891 ; Encounter for medication monitoring Z51.81 and BMI 50.0-59.9, adult Z68.43 [place] [id number] [place] [address] 69853- 6996 Dec, Bipolar I disorder, most recent episode (or current) mixed, moderate F31.62 [place] [id number] [place] [address] 51943- 8828 Nov, Bipolar I disorder, most recent episode (or current) mixed, moderate F31.62 [place] [id number] [place] [address] 99529- 9089 Nov, Chronic pain G89.29 [place] [id number] [place] [address] 11593- 3369 Nov, Bipolar I disorder, most recent episode (or current) mixed, moderate F31.62 [place] [id number] [place] [address] 96772- 0758 Nov, Hypokalemia E87.6 [place] [id number] [place] [address] 43197- 8020 Nov, Bipolar I disorder, most recent episode (or current) mixed, moderate F31.62 [place] [address] 67004- 6638 Oct, Chronic pain G89.29 [facility] [id number] [place] [address] 62568- 4185 Oct, BMI 50.0-59.9, adult Z68.43 and Bipolar I disorder, most recent episode (or current) mixed, moderate F31.62 [facility] [id number] [place] [address] 81775- 8935 Oct, Bipolar I disorder, most recent episode (or current) mixed, moderate F31.62 [place] [id number] [place] [address] 98615- 6317 Oct, [place] [address] 86982- 1998 Oct, Hypokalemia E87.6 [place] [address] 40371- 8634 Oct, DM neuro manif type II E11.49 [place] [id number] [place] [address] 87345- 2129 Oct, Bipolar I disorder, most recent episode (or current) mixed, moderate F31.62 [place] [id number] [place] [address] 02517- 5821 Oct, Bipolar I disorder, most recent episode (or current) mixed, moderate F31.62 [place] [id number] [place] [address] 09299- 6011 Oct, Hyperkalemia E87.5 ; Falling R29.6 ; BMI 50.0-59.9, adult Z68.43 and Acute left ankle pain M25.572 [place] [address] 46458- 8005 Oct, DM neuro manif type II E11.49 [facility] [id number] [place] [address] 14330- 7821 Oct, [place] [id number] [place] [address] 33212- 8773 Sep, Chronic pain G89.29 [place] [id number] [place] [address] 08789- 5853 Sep, [place] [id number] [place] [address] 55570- 6500 Sep, Bilateral primary osteoarthritis of knee M17.0 [place] [id number] [place] [address] 56036- 5113 Sep, Generalized edema R60.1 [place] [id number] [place] [address] 71293- 6951 Sep, Bipolar I disorder, most recent episode (or current) mixed, moderate F31.62 [place] [id number] [place] [address] 70119- 6214 Sep, Hypoxia R09.02 ; Other hypervolemia E87.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 ; Anemia of chronic illness D63.8 and BMI 50.0- 59.9, adult Z68.43 [place] [id number] [place] [address] 59056- 1868 Sep, [place] [id number] [place] [address] 07046- 5567 Sep, Bipolar I disorder, most recent episode (or current) mixed, moderate F31.62 [place] [id number] [place] [address] 77249- 3309 Aug, Chronic pain G89.29 [place] [id number] [place] [address] 73643- 4293 Aug, Generalized edema R60.1 [place] [id number] [place] [address] 82106- 5600 Aug, [place] [id number] [place] [address] 40264- 4004 Aug, [place] [id number] [place] [address] 40736- 2742 Aug, Bipolar I disorder, most recent episode (or current) mixed, moderate F31.62 [facility] [id number] [place] [address] 67862- 0005 Aug, Bipolar I disorder, most recent episode (or current) mixed, moderate F31.62 [place] [id number] [place] [address] 33475- 6879 Aug, Chronic pain G89.29 [place] [id number] [place] [address] 42515- 2915 Jul, Bipolar I disorder, most recent episode (or current) mixed, moderate F31.62 [place] [id number] [place] [address] 72424- 2385 Jul, Bipolar I disorder, most recent episode (or current) mixed, moderate F31.62 and BMI 60.0-69.9, adult Z68.44 [place] [id number] [place] [address] 33387- 3472 Jul, Bipolar I disorder, most recent episode (or current) mixed, moderate F31.62 [place] [id number] [place] [address] 73422- 5490 Jul, Chronic pain G89.29 [place] [id number] [place] [address] 91548- 3014 Jul, Bipolar I disorder, most recent episode (or current) mixed, moderate F31.62 [place] [id number] [place] [address] 12385- 5084 Jun, Polyneuropathy associated with underlying disease G63 and Diabetes E11.9 [facility] [id number] [place] [address] 03356- 0369 Jun, Bipolar I disorder, most recent episode (or current) mixed, moderate F31.62 [facility] [address] [address]- 2134 Jun, Chronic pain G89.29 [facility] [id number] [place] [address] 885472- 7915 May, Bipolar I disorder, most recent episode (or current) mixed, moderate F31.62 [facility] [id number] [place] [address] 60794- 1810 May, Bipolar I disorder, most recent episode (or current) mixed, moderate F31.62 [facility] [id number] [place] [address] 401419- 8364 20 May, 2017 Diabetic polyneuropathy associated with type [address] [facility] [id number] [place] [address] 84762- 7985 18 May, 2017 Bipolar I disorder, most recent episode (or current) mixed, moderate F31.62 [facility] [id number] [place] [address] 21898- 4086 13 May, 2017 Bipolar I disorder, most recent episode (or current) mixed, moderate F31.62 [facility] [id number] [place] [address] 93097- 6185 May, Chronic pain G89.29 [facility] [address] [address]- 9883 Apr, Bipolar I disorder, most recent episode (or current) mixed, moderate F31.62 [facility] [address] [address]- 9271 Apr, [facility] [id number] [place] [address] 72995- 1762 Apr, Chronic pain G89.29 and DM neuro manif type II E11.49 [facility] [id number] [place] [address] 57719- 7195 Apr, [facility] [address] [address]- 9246 Apr, Bipolar I disorder, most recent episode (or current) mixed, moderate F31.62 [facility] [address] [address]- 2106 Apr, Chronic pain G89.29 [facility] [address] [address]- 9486 Apr, Iliotibial band syndrome, left M76.32 [facility] [id number] [place] [address] 05757- 5496 Apr, Bipolar I disorder, most recent episode (or current) mixed, moderate F31.62 [facility] [id number] [place] [address] 59074- 5614 Mar, Bipolar I disorder, most recent episode (or current) mixed, moderate F31.62 [facility] [id number] [place] [address] 46702- 7755 Mar, Bipolar I disorder, most recent episode (or current) mixed, moderate F31.62 [facility] [address] [address]- 9671 Mar, [facility] [address] [address]- 7636 Mar, Bipolar I disorder, most recent episode (or current) mixed, moderate F31.62 [facility] [address] [address]- 6025 Mar, Chronic pain G89.29 [facility] [address] [address]- 7816 Mar, Bipolar I disorder, most recent episode (or current) mixed, moderate F31.62 [facility] [address] [address]- 9940 Mar, Bipolar I disorder, most recent episode (or current) mixed, moderate F31.62 [facility] [id number] [place] [address] 34106- 4825 Mar, Acute pain of left knee M25.562 ; Left hip pain M25.552 ; Generalized edema R60.1 and Tongue swelling R22.0 [place] [id number] [place] [address] 07306- 4480 Mar, [place] [id number] [place] [address] 12049- 2532 Feb, Chronic pain G89.29 [place] [id number] [place] [address] 14965- 1008 Feb, Diabetes E11.9 [place] [address] 21370- 1618 January, Chronic pain G89.29 [place] [id number] [place] [address] 49937- 3159 January, [place] [id number] [place] [address] 81759- 7570 January, Bipolar I disorder, most recent episode (or current) mixed, moderate F31.62 [place] [id number] [place] [address] 25422- 4696 Dec, Bipolar I disorder, most recent episode (or current) mixed, moderate F31.62 [place] [id number] [place] [address] 94072- 4838 Dec, Chronic pain G89.29 [place] [id number] [place] [address] 01246- 8003 Dec, Bipolar I disorder, most recent episode (or current) mixed, moderate F31.62 [place] [id number] [place] [address] 93230- 6091 Dec, Diabetes E11.9 ; Essential hypertension I10 ; Chronic pain G89.29 and Morbid obesity E66.01 [place] [id number] [place] [address] 86626- 1748 Dec, [facility] [address] [address]- 5456 Dec, Bipolar I disorder, most recent episode (or current) mixed, moderate F31.62 [facility] [address] [address] 2546 Dec, Bipolar I disorder, most recent episode (or current) mixed, moderate F31.62 [facility] [id number] [place] [address] 57441- 9446 Nov, Chronic pain G89.29 [facility] [id number] [place] [address] 20562- 9526 Nov, Bipolar I disorder, most recent episode (or current) mixed, moderate F31.62 [facility] [address] [address]- 7076 Nov, [facility] [id number] [place] [address] 37366- 7166 Nov, Bipolar I disorder, most recent episode (or current) mixed, moderate F31.62 [facility] [id number] [place] [address] 98364- 4086 Nov, Bipolar I disorder, most recent episode (or current) mixed, moderate F31.62 [facility] [address] [address]- 5236 Nov, [facility] [id number] [place] [address] 27157 2546 Nov, [facility] [address] [address]- 8076 Nov, [facility] [id number] [place] [address] 98891- 9316 Oct, Chronic pain G89.29 [facility] [address] [address]- 2666 Oct, Bipolar I disorder, most recent episode (or current) mixed, moderate F31.62 [facility] [id number] [place] [address] 22221- 6186 Oct, 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 [id number] [place] [address] 78896- 0116 Oct, [facility] [id number] [place] [address] 55823- 1506 Oct, Diabetes E11.9 [facility] [id number] [place] [address] 72594 2541 Oct, Bipolar I disorder, most recent episode (or current) mixed, moderate F31.62 [facility] [id number] [place] [address] 34549- 1226 Sep, Chronic pain G89.29 [facility] [id number] [place] [address] 56723 2546 Sep, Chronic pain G89.29 [facility] [id number] [place] [address] 68506 2546 Aug, Chronic pain G89.29 [facility] [id number] [place] [address] 31187 2546 Jul, [facility] [id number] [place] [address] 55829 2547 Jul, Diabetes E11.9 [facility] [id number] [place] [address] 47005 2546 Jul, Chronic pain G89.29 [facility] [id number] [place] [address] 43761 2546 Jul, Bipolar I disorder, most recent episode (or current) mixed, moderate F31.62 [facility] [id number] [place] [address] 32729- 5850 Jun, Bipolar I disorder, most recent episode (or current) mixed, moderate F31.62 [facility] [id number] [place] [address] 37412- 6789 Jun, [facility] [id number] [place] [address] 44772- 5461 Jun, Bipolar I disorder, most recent episode (or current) mixed, moderate F31.62 [facility] [id number] [place] [address] 65991- 0674 30 May, 2016 Insomnia, unspecified type G47.00 [facility] [id number] [place] [address] 99982- 3858 May, Bipolar I disorder, most recent episode (or current) mixed, moderate F31.62 [place] [id number] [place] [address] 28429- 5802 14 May, 2016 [facility] [id number] [place] [address] 10578- 2598 May, Bipolar I disorder, most recent episode (or current) mixed, moderate F31.62 [place] [id number] [place] [address] 45184- 8112 May, Diabetes E11.9 and Essential hypertension I10 [place] [id number] [place] [address] 32710- 3296 Apr, Chronic pain G89.29 [facility] [id number] [place] [address] 63693- 1122 Apr, Bipolar I disorder, most recent episode (or current) mixed, moderate F31.62 [facility] [id number] [place] [address] 46929- 8721 Apr, [facility] [id number] [place] [address] 34547- 5135 Apr, [facility] [id number] [place] [address] [phone] Mar, Chronic pain G89.29 ; Headache, unspecified headache type R51 ; Neuropathy G62.9 ; Pain of right hip joint M25.551 and Essential hypertension [address] [place] [id number] [place] [address] 50109- [phone] Mar, Chronic pain G89.29 [place] [address] [phone]- [phone] Mar, Bipolar I disorder, most recent episode (or current) mixed, moderate F31.62 [place] [id number] [place] [address] [phone]- [phone] Feb, Bipolar I disorder, most recent episode (or current) mixed, moderate F31.62 and Insomnia, unspecified type G47.00 [place] [address] 95092- 7537 Feb, Chronic pain G89.29 [place] [id number] [place] [address] [phone]- [phone] Feb, Bipolar I disorder, most recent episode (or current) mixed, moderate F31.62 [place] [id number] [place] [address] [phone]- [phone] January, Bipolar I disorder, most recent episode (or current) mixed, moderate F31.62 [place] [id number] [place] [address] [phone]- 0876 January, Chronic pain G89.29 [place] [id number] [place] [address] 13512- 4699 January, Chronic pain G89.29 and Essential hypertension I[address] [place] [id number] [place] [address] [phone]- [phone] January, Bipolar I disorder, most recent episode (or current) mixed, moderate F31.62 [place] [address] [place] [address] [id number] [address] Dec, [facility] [id number] [place] [address] 15789- 9509 Dec, [facility] [id number] [place] [address] 67172- [address] Dec, [facility] [id number] [place] [address] 67378- 2740 Dec, [facility] [id number] [place] [address] 73517- 0477 Nov, Reactive airway disease J45.909 [facility] [id number] [place] [address] 00103- 9559 Nov, [facility] [id number] [place] [address] 40069- 4504 Nov, [facility] [id number] [place] [address] 87318- 7777 Nov, [facility] [id number] [place] [address] 90809- 2082 Nov, [facility] [id number] [place] [address] 87795- 7611 Nov, Onychomycosis B35.1 ; Hammertoe M20.40 ; [place] or callus L84 and DM neuro manif type II E11.49 [facility] [id number] [place] [address] 22829- 9876 Nov, Chronic pain G89.29 ; Leukocytosis D72.[address] [facility] [id number] [place] [address] 61152- 4640 Nov, [facility] [id number] [place] [address] 97260- 2349 Oct, Bron[address]40 [facility] [id number] [place] [address] 33932- 6240 Oct, [facility] [id number] [place] [address] 58125- 5373 Oct, [facility] [id number] [place] [address] 95612- 3882 Oct, Mastoiditis, unspecified laterality H70.90 and Type 2 diabetes mellitus with complication E11.8 [facility] [id number] [place] [address] 59176- 1164 Sep, [facility] [id number] [place] [address] 72000- 0720 Sep, Dysuria R30.0 ; Cough R05 ; Benign prostatic hyperplasia with lower urinary tract symptoms, unspecified morphology N40.1 ; Hypokalemia E87.6 and Eustachian tube dysfunction, unspecified laterality H69.80 [facility] [id number] [place] [address] 56890- 6819 Sep, Moderate mixed bipolar I disorder F31.62 [facility] [id number] [place] [address] 32824- 3739 Sep, Hypokalemia E87.6 [facility] [id number] [place] [address] 95277- 2086 Sep, [facility] [id number] [place] [address] 26465- 8493 Sep, Upper respiratory tract infection, unspecified type J06.9 [facility] [id number] [place] [address] 52543- 8489 Aug, [facility] [id number] [place] [address] 37828- 4584 Aug, Dysuria R30.0 [facility] [id number] [place] [address] 37876- 9355 Aug, [facility] [id number] [place] [address] 76025- 2565 Jul, [facility] [address] [address] Jul, [facility] [id number] [address] 3887 Jul, [facility] [id number] [address] 0743 Jul, [facility] [id number] [place] [address] 20569- 9678 Jun, [facility] [id number] [place] [address] 65645- 9526 Jun, [facility] [id number] [place] [address] 76489- [address] Jun, [facility] [id number] [place] [address] 31233- 9618 May, [facility] [id number] [place] [address] 86502- 6746 May, Bipolar I disorder, most recent episode (or current) mixed, moderate 296.62 [facility] [id number] [address] 9961 May, [facility] [id number] [address]- 6429 May, Bipolar I disorder, most recent episode (or current) mixed, moderate 296.62 and Major depressive disorder, recurrent episode, severe, specified as with psychotic behavior 296.34 [facility] [id number] [address]- 3264 May, Bipolar I disorder, most recent episode (or current) mixed, moderate 296.62 [facility] [address] [address]- 9661 May, [facility] [address] [address] 3382 Apr, [facility] [id number] [address]- 1606 Apr, [facility] [id number] [place] [address] 11991- 9994 Apr, Unspecified disorder of kidney and ureter 593.9 and Diabetes mellitus type [address], [address] [facility] [id number] [place] [address] 54460- 8943 Apr, [facility] [address] 55758- 6198 Apr, [facility] [id number] [place] [address] 33350- 3594 Apr, [facility] [address] 09736- 7233 Apr, [facility] [id number] [place] [address] 29064- 0347 Apr, Diabetes mellitus type II, uncontrolled 250.02 [facility] [id number] [place] [address] 49045- 0895 Apr, [facility] [id number] [place] [address] 50119- 3184 Mar, [facility] [id number] [place] [address] 81941- 0865 Mar, [facility] [id number] [place] [address] 48143- 3199 Mar, [facility] [id number] [place] [address] 55972- 6948 Mar, Major depressive disorder, recurrent episode, severe, specified as with psychotic behavior 296.34 and Bipolar I disorder, most recent episode (or current) mixed, moderate 296.62 [facility] [id number] [place] [address] 52955- 2657 Mar, Diabetes 250.00 ; Anuria 788.5 ; Nausea and vomiting 787.[address] [facility] [id number] [place] [address] 94075- 7828 Mar, Diabetes 250.00 [facility] [id number] [place] [address] 12904- 6306 Mar, [facility] [id number] [place] [address] 26419- 6870 Mar, Diabetes 250.00 [facility] [id number] [place] [address] 87782- 5358 Mar, [facility] [id number] [place] [address] 18073- 0148 Mar, [facility] [id number] [place] [address] 26084- 2295 Mar, [facility] [id number] [place] [address] 10524- 7526 Mar, [facility] [id number] [place] [address] 29604- 4569 Mar, Bipolar I disorder, most recent episode (or current) mixed, moderate 296.62 and Major depressive disorder, recurrent episode, severe, specified as with psychotic behavior 296.34 [facility] [id number] [place] [address] 94455- 2554 Mar, Magnesium deficiency 275.2 ; Hypokalemia 276.8 ; Nausea & vomiting 787.01 and Diabetes mellitus type [address], [address] [facility] [address] [address]- 0545 Feb, [facility] [id number] [place] [address] 79157- 8805 Feb, Bipolar I disorder, most recent episode (or current) mixed, moderate 296.62 [facility] [id number] [place] [address] 70697- 7750 Feb, Nausea and vomiting 787.01 ; Left elbow pain 719.42 ; Anuria 788.[address] [facility] [id number] [address]- 3072 Feb, [facility] [id number] [place] [address] 24333- 0175 Feb, Hypopotassemia 276.[address] [facility] [id number] [place] [address] 25299- 0228 Feb, Hypopotassemia 276.[address] [facility] [id number] [place] [address] 61245- 5699 Feb, Seborrheic keratoses 702.19 [facility] [id number] [place] [address] 83983- 1601 Feb, Hypopotassemia 276.8 and Low magnesium levels 275.2 [facility] [id number] [place] [address] 58544- 3904 January, [facility] [id number] [place] [address] 30665- 5544 January, [facility] [id number] [place] [address] 27144- 5734 January, [facility] [id number] [place] [address] 60388- 2819 January, Scalp lesion 709.9 [facility] [id number] [place] [address] 68502- 9842 January, [facility] [id number] [place] [address] 40094- 5765 Dec, Tear of medial cartilage or meniscus of knee, current 836.0 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 [facility] [id number] [place] [address] 79991- 0351 Dec, [facility] [id number] [place] [address] 38616- 4900 Dec, [facility] [id number] [place] [address] 83194- 3221 28 Dec, 2014 Squamous cell carcinoma, 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 [facility] [place] [facility] [address] [id number] [place] [address]- 9636 14 Dec, 2014 [facility] [place] [facility] [address] [facility] [id number] [place] [address]- 3006 13 Dec, 2014 [facility] [place] [facility] [address] [facility] [id number] [place] [address]- 5856 Nov, [facility] [place] [facility] [address] [facility] [id number] [place] [address]- 7426 Nov, [facility] [place] [facility] [address] [facility] [id number] [place] [address]- 1527 Nov, [facility] [place] [facility] [address] [facility] [id number] [place] 7065 Nov, [facility] [place] [facility] [id number] [address]- 5457 Nov, [facility] [place] [facility] [address] [facility] [id number] [place] [address]- 4202 Nov, [facility] [place] [facility] [id number] [place] [address]- 6100 Nov, [facility] [place] [facility] [id number]- 4354 Nov, [facility] [place] [facility] [address] [facility] [id number] [place] [address]- 3529 Nov, [facility] [place] [facility] [address] [facility] [id number] [place] [address]- 3568 Nov, [facility] [place] [facility] [address] [facility] [id number] [place] [address]- 4037 Nov, [facility] [place] [facility] [address] [facility] [id number] [place] [address]- 2546 Nov, [facility] [place] [facility] [address] [facility] [id number] [place] [address]- 3940 Oct, 2014 [facility] [place] [facility] [address] [id number] [place] [address]- 9082 Oct, 2014 [facility] [place] [facility] [address] [facility] [id number] [place] [address]- 8926 Oct, 2014 [facility] [place] [facility] [address] [facility] [id number] [place] [address]- 2734 Oct, 2014 [facility] [place] [facility] [address] [facility] [id number] [place] [address]- 5161 Oct, 2014 [facility] [place] [facility] [address] [id number] [place] [address]- 4612 Oct, 2014 [facility] [place] [facility] [address] [facility] [id number] [place] [address]- 2158 Oct, 2014 [facility] [place] [facility] [address] [facility] [id number] [place] [address]- 3531 Oct, [facility] [place] [facility] [address] [facility] [id number] [place] [address]- 7087 Oct, [facility] [place] [facility] [address] [facility] [id number] [place] [address]- 5697 Sep, [facility] [place] [facility] [address] [facility] [id number] [place] [address]- 3533 Sep, [facility] [place] [facility] [address] [facility] [id number] [address]- 8573 Sep, [facility] [place] [facility] [address] [facility] [id number] [address]- 8741 Sep, [facility] [place] [facility] [address] [facility] [id number] [place] [address]- 7468 Sep, [facility] [place] [facility] [address] [facility] [id number] [place] [address]- 3935 Sep, [facility] [place] [facility] [address] [facility] [id number] [place] [address]- 2450 Sep, [facility] [place] [facility] [address] [id number] [place] [address]- 8630 Sep, [facility] [place] [facility] [address] [id number] [place] [address]- 8624 Sep, [facility] [place] [facility] [address] [id number] [place] [address]- 8446 Sep, [facility] [place] [facility] [address] [id number] [place] [address]- 2574 Sep, [facility] [place] [facility] [address] [id number] [place] [address]- 2581 Sep, [facility] [place] [facility] [address] [id number] [place] [address]- 8431 Sep, [facility] [place] [facility] [address] [id number] [place] [address]- 1736 Sep, [facility] [place] [facility] [address] [id number] [place] [address]- 2353 Sep, [facility] [place] [facility] [address] [id number] [place] [address]- 8803 Sep, [facility] [place] [facility] [address] [id number] [place] [address]- 2500 Aug, [facility] [place] [facility] [address] [id number] [place] [address]- 3967 Aug, [facility] [place] [facility] [address] [id number] [place] [address]- 4095 31 Aug, 2014 [facility] [place] [facility] [address] [id number] [place] [address]- 3137 31 Aug, 2014 [facility] [place] [facility] [address] [id number] [place] [address]- 9156 Aug, [facility] [place] [facility] [address] [id number] [place] [address]- 1346 31 Aug, 2014 [facility] [place] [facility] [address] [id number] [place] [address]- 9566 Aug, [facility] [address] [id number] [place] [address]- 9563 Aug, [facility] [address] [id number] [place] [address]- 4032 Aug, [facility] [address] [id number] [place] [address]- 7014 Aug, [facility] [address] [id number] [place] [address]- 5015 Aug, [facility] [id number] Aug, [facility] [address] [id number] [place] [address]- 1518 Aug, [facility] [address] [id number] [place] [address]- 9076 Aug, [facility] [address] [id number] [place] [address]- 2985 Aug, [facility] [address] [id number] [place] [address]- 1098 Aug, [facility] [address] [id number] [place] [address]- 9258 Aug, [facility] [address] [id number] [place] [address]- 5021 Aug, [facility] [address] [id number] [place] [address]- 8142 Aug, [facility] [address] [id number] [place] [address]- 0139 Aug, [facility] [place] [facility] [address] [id number] [place] [address]- 9812 Aug, [facility] [address] [id number] [place] [address]- 4209 Aug, [facility] [address] [id number] [place] [address]- 2200 Aug, [facility] [place] [facility] [address] [id number] [place] [address]- 0170 Aug, [facility] [place] [facility] [address] [id number] [place] 8433 Aug, [facility] [place] [facility] [address] [id number] [place] [address]- 5204 Aug, [facility] [place] [facility] [address] [id number] [place] [address]- 7062 Aug, [facility] [place] [facility] [address] [id number] [place] [address]- 6403 Aug, [facility] [place] [facility] [address] [id number] [place] [address]- 5236 Aug, [facility] [place] [facility] [address] [id number] [place] [address]- 3433 Aug, [facility] [place] [facility] [address] [id number] [place] [address]- 5349 Jul, [facility] [place] [facility] [address] [id number] [place] [address]- 5103 Jul, [facility] [place] [facility] [address] [id number] [place] [address]- 9886 Jul, [facility] [place] [facility] [address] [id number] [place] [address]- 7324 Jul, [facility] [place] [facility] [address] [id number] [place] [address]- 1094 Jul, [facility] [place] [facility] [address] [id number] [place] [address]- 9532 Jul, [facility] [place] [facility] [address] [id number] [place] [address]- 3256 Jul, [facility] [place] [facility] [address] [id number] [place] [address]- 6806 Jul, [facility] [place] [facility] [address] [id number] [place] [address]- 3988 Jul, [facility] [place] [facility] [address] [id number] [place] [address]- 8566 Jul, [facility] [place] [facility] [address] [id number] [place] [address]- 7998 Jun, [facility] [place] [facility] [address] [id number] [place] [address]- 8382 Jun, [facility] [place] [facility] [address] [id number] [place] [address]- 7462 Jun, [facility] [place] [facility] [address] [id number] [place] [address]- 3540 Jun, [facility] [place] [facility] [address] [id number] [place] [address]- 8308 Jun, [facility] [place] [facility] [address] [id number] [place] [address]- 3097 Jun, [facility] [place] [facility] [address] [id number] [place] [address]- 8325 Jun, [facility] [place] [facility] [address] [id number] [place] [address]- 1413 Jun, [facility] [place] [facility] [address] [id number] [place] [address]- 3336 Jun, [facility] [place] [facility] [address] [id number] [place] [address]- 6298 Jun, [facility] [place] [facility] [address] [id number] [place] [address]- 5917 29 May, 2014 [facility] [place] [facility] [address] [id number] [place] [address]- 5281 29 May, 2014 [facility] [place] [facility] [address] [id number] [place] [address]- 5601 May, [facility] [place] [facility] [address] [id number] [place] [address]- 6995 May, 2013 [facility] [place] [facility] [address] [id number] [place] [address]- 3645 17 May, 2013 [facility] [place] [facility] [address] [id number] [place] [address]- 6176 17 May, 2013 [facility] [place] [facility] [address] [id number] [place] [address]- 9958 15 May, 2013 [facility] [place] [facility] [address] [id number] [place] [address]- 8853 15 May, 2013 [facility] [place] [facility] [address] [id number] [place] [address]- 9324 15 May, 2013 [facility] [place] [facility] [address] [id number] [place] [address]- 2181 15 May, 2013 [facility] [place] [facility] [address] [id number] [place] [address] 10 May, 2013 [facility] [place] [facility] [address] [id number] [place] [address] 10 May, 2013 [facility] [place] [facility] [address] [id number] [place] [address] 09 May, 2013 [facility] [place] [facility] [address] [id number] [place] [address] 09 May, 2013 [facility] [place] [facility] [address] [id number] [place] [address] May, 2013 [facility] [place] [facility] [address] [id number] [place] [address] May, 2013 [facility] [place] [facility] [address] [id number] [place] [address] Apr, [facility] [place] [facility] [address] [id number] [place] [address] Apr, [facility] [place] [facility] [address] [id number] [place] [address] Apr, [facility] [place] [facility] [address] [id number] [place] [address] Apr, [facility] [place] [facility] [address] [id number] [place] [address] Apr, [facility] [place] [facility] [address] [id number] [place] [address] Apr, [facility] [place] [facility] [address] [id number] [place] [address] Apr, [facility] [place] [facility] [address] [id number] [place] [address]- 69[address] Apr, [facility] [place] [facility] [address] [id number] [place] [address]- [address] Apr, [facility] [place] [facility] [address] [id number] [place] [address]- 4[address] Apr, [facility] [place] [facility] [address] [id number] [place] [address] 7969 Apr, [facility] [place] [facility] [address] [id number] [place] [address]597 Apr, [facility] [place] [facility] [address] [id number] [place] [address] 67[address] Apr, [facility] [place] [facility] [address] [id number] [place] [address] 75[address] Apr, [facility] [place] [facility] [address] [id number] [place] [address]- [address] Apr, [facility] [place] [facility] [address] [id number] [place] [address] Mar, [facility] [place] [facility] [address] [id number] [place] [address]- [address]60 Mar, [facility] [place] [facility] [address] [id number] [place] [address]- 8720 Mar, [facility] [place] [facility] [address] [id number] [place] [address]- 1718 Mar, [facility] [place] [facility] [address] [id number] [place] [address] Mar, 2013 [facility] [place] [facility] [address] [id number] [place] [address] Mar, 2013 [facility] [place] [facility] [address] [id number] [place] [address] Mar, 2013 [facility] [place] [facility] [address] [id number] [place] [address] Mar, 2013 [facility] [place] [facility] [address] [id number] [place] [address] Mar, 2013 [facility] [place] [facility] [address] [id number] [place] [address]- [address] Mar, 2013 [facility] [place] [facility] [address] [id number] [place] [address] 9255 Mar, 2013 [facility] [place] [facility] [address] [id number] [place] [address]- 3867 Mar, 2013 [facility] [place] [facility] [address] [id number] [place] [address]- [address]487 Mar, 2013 [facility] [place] [facility] [address] [id number] [place] [address]- [address] Mar, 2013 [facility] [place] [facility] [address] [id number] [place] [address]- 9480 Mar, 2013 [facility] [place] [facility] [address] [id number] [place] [address]- 386[address] Mar, 2013 [facility] [place] [facility] [address] [id number] [place] [address]- [address] Mar, [facility] [place] [facility] [address] [id number] [place] [address] Mar, [facility] [place] [facility] [address] [id number] [place] [address] Feb, [facility] [place] [facility] [address] [id number] [place] [address] 1480 Feb, [facility] [place] [facility] [address] [id number] [place] [address]- 240[address] Feb, [facility] [place] [facility] [address] [id number] [place] [address]797 Feb, [facility] [place] [facility] [address] [id number] [place] [address]- [address] Feb, [facility] [place] [facility] [address] [id number] [place] [address] Feb, [facility] [place] [facility] [address] [id number] [place] [address] Feb, [facility] [place] [facility] [address] [id number] [place] [address]- 1379 Feb, [facility] [place] [facility] [address] [id number] [place] [address] Feb, [facility] [place] [facility] [address] [id number] [place] [address]- [address] Feb, [facility] [place] [facility] [address] [id number] [place] [address]- 1629 Feb, [facility] [place] [facility] [address] [id number] [place] [address]- [address] Feb, [facility] [place] [facility] [address] [id number] [place] [address]- [address]40 Feb, [facility] [place] [facility] [address] [id number] [place] [address]- [address] Feb, [facility] [place] [facility] [address] [id number] [place] [address] January, [facility] [place] [facility] [address] [id number] [place] [address] January, [facility] [place] [facility] [address] [id number] [place] [address] January, [facility] [place] [facility] [address] [id number] [place] [address] January, [facility] [place] [facility] [address] [id number] [place] [address] 0[address] January, [facility] [place] [facility] [address] [id number] [place] [address]- 0873 January, [facility] [place] [facility] [address] [id number] [place] [address]127 January, [facility] [place] [facility] [address] [id number] [place] [address]- 3890 January, [facility] [place] [facility] [address] [id number] [place] [address]- 9064 January, [facility] [place] [facility] [address] [id number] [place] [address]- 62[address] January, [facility] [place] [facility] [address] [id number] [place] [address] 8976 January, [facility] [place] [facility] [address] [id number] [place] [address]- 2321 January, [facility] [place] [facility] [address] [id number] [place] [address]- 6[address] January, [facility] [place] [facility] [address] [id number] [place] [address]- 6392 January, [facility] [place] [facility] [address] [id number] [place] [address]- 7590 Dec, [facility] [place] [facility] [address] [id number] [place] [address]- 3520 Dec, [facility] [place] [facility] [address] [id number] [place] [address]- 0212 Dec, [facility] [place] [facility] [address] [id number] [place] [address]- 1980 Dec, [facility] [place] [facility] [address] [id number] [place] [address]- 1213 Dec, [facility] [place] [facility] [address] [id number] [place] [address]- 8298 Dec, [facility] [place] [facility] [address] [id number] [place] [address]- 3526 Dec, [facility] [place] [facility] [address] [id number] [place] [address]- 92[address] Dec, [facility] [place] [facility] [address] [id number] [place] [address]- 5861 Dec, [facility] [place] [facility] [address] [id number] [place] [address]- 4995 Dec, [facility] [place] [facility] [address] [id number] [place] [address]- 4524 Nov, [facility] [place] [facility] [address] [id number] [place] [address]- 2512 Nov, [facility] [place] [facility] [address] [id number] [place] [address]- 5444 Nov, [facility] [place] [facility] [address] [id number] [place] [address]- 466[address] Nov, [facility] [place] [facility] [address] [id number] [place] [address]- 1778 Nov, [facility] [place] [facility] [address] [id number] [place] [address]- 2454 Nov, [facility] [place] [facility] [address] [id number] [place] [address]- 8192 Nov, [facility] [place] [facility] [address] [id number] [place] [address]- 9694 Nov, [facility] [place] [facility] [address] [id number] [place] [address]- 9328 Nov, [facility] [place] [facility] [address] [id number] [place] [address]- 9469 Nov, [facility] [place] [facility] [address] [id number] [place] [address]- 5[address] Oct, [facility] [place] [facility] [address] [id number] [place] [address]- 2836 Oct, [facility] [place] [facility] [address] [id number] [place] [address]- 1386 Oct, [facility] [place] [facility] [address] [id number] [place] [address]- 8536 Oct, [facility] [place] [facility] [address] [id number] [place] [address]- 7474 Oct, [facility] [place] [facility] [address] [id number] [place] [address]- 8944 Oct, [facility] [place] [facility] [address] [id number] [place] [address]- 2826 Oct, [facility] [place] [facility] [address] [id number] [place] [address]- 0682 Oct, [facility] [place] [facility] [address] [id number] [place] [address]- 1388 Oct, [facility] [place] [facility] [address] [id number] [place] [address]- 5365 Oct, [facility] [place] [facility] [address] [id number] [place] [address]- 7782 Oct, [facility] [place] [facility] [address] [id number] [place] [address]- 2542 Oct, [facility] [place] [facility] [address] [id number] [place] [address]- 6753 Oct, [facility] [place] [facility] [address] [id number] [place] [address]- 4437 Oct, [facility] [place] [facility] [address] [id number] [place] [address]- 8636 Sep, [facility] [place] [facility] [address] [id number] [place] [address]- 4150 Sep, [facility] [place] [facility] [address] [id number] [place] [address]- 9133 15 Sep, 2013 [facility] [place] [facility] [address] [id number] [place] [address]- 3637 15 Sep, 2013 [facility] [place] [facility] [address] [id number] [place] [address]- 8127 14 Sep, 2013 [facility] [place] [facility] [address] [id number] [place] [address]- 7679 Sep, [facility] [place] [facility] [address] [id number] [place] [address]- 1003 Sep, [facility] [place] [facility] [address] [id number] [place] [address]- 0524 Sep, [facility] [place] [facility] [address] [id number] [place] [address]- 2702 Sep, [facility] [place] [facility] [address] [id number] [place] [address]- 3159 Sep, [facility] [place] [facility] [address] [id number] [place] [address]- 1625 Aug, [facility] [place] [facility] [address] [id number] [place] [address]- 1027 Aug, [facility] [place] [facility] [address] [id number] [place] [address]- 1431 Jul, [facility] [place] [facility] [address] [id number] [place] [address]- 0787 Jul, [facility] [place] [facility] [address] [id number] [place] [address]- 0312 Jul, [facility] [place] [facility] [address] [id number] [place] [address]- 4616 Jul, [facility] [place] [facility] [address] [id number] [place] [address]- 3853 Jul, [facility] [place] [facility] [address] [id number] [place] [address]- 1660 13 Jul, 2013 [facility] [place] [facility] [address] [id number] [place] [address]- 6996 Jul, [facility] [place] [facility] [address] [id number] [place] [address]- 5894 Jul, [facility] [place] [facility] [address] [id number] [place] [address]- 5511 Jul, [facility] [place] [facility] [address] [id number] [place] [address]- 1152 08 Jul, 2013 [facility] [place] [facility] [address] [id number] [place] [address]- 1486 Jul, [facility] [place] [facility] [address] [id number] [place] [address]- 3930 Jul, [facility] [place] [facility] [address] [id number] [place] [address]- 0926 Jul, [facility] [place] [facility] [address] [id number] [place] [address]- 7331 Jul, [facility] [place] [facility] [address] [id number] [place] [address]- 6817 Jul, [facility] [place] [facility] [address] [facility] [id number] [place] [address]- 3031 Jul, [facility] [place] [facility] [address] [id number] [place] [address]- 5041 Jul, [facility] [place] [facility] [address] [id number] [place] [address]- 7855 Jul, [facility] [place] [facility] [address] [id number] [place] [address]- 9586 Jul, [facility] [place] [facility] [address] [facility] [id number] [place] [address]- 9476 Jun, [facility] [place] [facility] [address] [facility] [id number] [place] [address]- 3249 Jun, [facility] [place] [facility] [address] [id number] [place] [address]- 6156 16 Jun, 2012 [facility] [place] [facility] [address] [id number] [place] [address]- 1900 16 Jun, 2012 [facility] [place] [facility] [address] [id number] [place] [address]- 7890 16 Jun, 2012 [facility] [place] [facility] [address] [id number] [place] [address]- 1486 16 Jun, 2012 [facility] [place] [facility] [address] [id number] [place] [address]- 7518 Jun, 2012 [facility] [place] [facility] [address] [id number] [place] [address]- 0905 10 Jun, 2012 [facility] [place] [facility] [address] [id number] [place] [address]- 6416 Jun, 2012 [facility] [place] [facility] [address] [id number] [place] [address]- 1439 09 Jun, 2012 [facility] [place] [facility] [address] [id number] [place] [address]- 1136 Jun, [facility] [place] [facility] [address] [id number] [place] [address]- 2612 26 May, 2012 [facility] [place] [facility] [address] [id number] [place] [address]- 1630 25 Sep, 2012 [facility] [place] [facility] [address] [id number] [place] [address]- 2548 19 Sep, 2012 [facility] [place] [facility] [address] [id number] [place] [address]- 7288 17 Sep, 2012 [facility] [place] [facility] [address] [id number] [place] [address]- 2545 11 Sep, 2012 [facility] [place] [facility] [address] [id number] [place] [address]- 2549 10 Sep, 2012 [facility] [place] [facility] [address] [id number] [place] [address]- 6862 May, [facility] [place] [facility] [address] [id number] [place] [address]- 8879 May, [facility] [place] [facility] [address] [id number] [place] [address]- 0217 Apr, [facility] [place] [facility] [address] [id number] [place] [address]- 6643 Apr, [facility] [place] [facility] [address] [id number] [place] [address]- 6216 Apr, [facility] [place] [facility] [address] [id number] [place] [address]- 6979 Apr, [facility] [place] [facility] [address] [id number] [place] [address]- 4211 Apr, [facility] [place] [facility] [address] [id number] [place] [address]- 9821 Mar, [facility] [place] [facility] [address] [id number] [place] [address]- 4798 Mar, [facility] [place] [facility] [address] [id number] [place] [address]- 0087 Mar, [facility] [place] [facility] [address] [id number] [place] [address]- 8370 Mar, [facility] [place] [facility] [address] [id number] [place] [address]- 6253 Mar, [facility] [place] [facility] [address] [id number] [place] [address]- 5144 Mar, [facility] [place] [facility] [address] [id number] [place] [address]- 0645 Mar, [facility] [place] [facility] [address] [id number] [place] [address]- 2412 Mar, [facility] [place] [facility] [address] [id number] [place] [address]- 9508 Feb, [facility] [place] [facility] [address] [id number] [place] [address]- 0768 Feb, [facility] [address] [id number] [place] [address]- 7780 January, [facility] [address] [id number] [place] [address] January, [facility] [address] [id number] [place] [address]- 6141 Dec, [facility] [address] [id number] [place] [address]- 6237 Dec, [facility] [address] [id number] [place] [address]- 8475 Nov, [facility] [address] [id number] [place] [address]- 0781 Nov, [facility] [address] [id number] [place] [address]- 5690 Nov, [facility] [address] [id number] [place] [address]- 9573 Nov, [facility] [address] [id number] [place] [address]- 2118 Oct, [facility] [address] [facility] [id number] [place] [address]- 7223 Oct, [facility] [address] [id number] [place] [address]- 8752 Oct, [facility] [address] [id number] [place] [address]- 2544 Oct, [facility] [place] [facility] [address] [id number] [place] [address]- 2664 16 Oct, 2012 [facility] [address] [facility] [id number] [place] 2602 14 Oct, 2012 [facility] [address] [id number] [place] [address]- 0345 08 Oct, 2012 [facility] [address] [id number] [place] [address]- 1714 07 Oct, 2012 [facility] [place] [facility] [address] [id number] [place] [address]- 7296 03 Oct, 2012 [facility] [place] [facility] [address] [facility] [id number] [place] [address]- 6268 30 Sep, 2012 [facility] [place] [facility] [address] [id number] [place] [address]- 7562 Sep, [facility] [place] [facility] [address] [id number] [place] [address]- 8458 Sep, [facility] [place] [facility] [address] [id number] [place] [address]- 0814 Sep, [facility] [place] [facility] [address] [id number] [place] [address]- 1907 Sep, [facility] [place] [facility] [address] [id number] [place] [address]- 4055 Sep, [facility] [address] [id number] [place] [address]- 9884 Sep, [facility] [place] [facility] [address] [facility] [id number] [place] [address]- 9475 Sep, [facility] [place] [facility] [address] [id number] [place] [address]- 8207 Aug, [facility] [place] [facility] [address] [id number] [place] [address]- 9671 Aug, [facility] [place] [facility] [address] [id number] [place] [address]- 5349 Aug, [facility] [place] [facility] [address] [id number] [place] [address]- 4262 Aug, [facility] [place] [facility] [address] [facility] [id number] [place] [address]- 6952 Aug, [facility] [place] [facility] [address] [id number] [place] [address]- 3794 Aug, [facility] [place] [facility] [address] [id number] [place] [address]- 2782 Aug, [facility] [place] [facility] [address] [id number] [place] [address]- 5598 Aug, [facility] [place] [facility] [address] [id number] [place] [address]- 0569 Jul, [facility] [place] [facility] [address] [id number] [place] [address]- 3864 Jul, [facility] [place] [facility] [address] [id number] [place] [address], [place] [address]- 5065 Jul, [facility] [place] [facility] [address] [id number] [place] [address]- 7787 Jul, [facility] [place] [facility] [address] [facility] [id number] [place] [address]- 4282 Jul, [facility] [place] [facility] [address] [id number] [place] [address]- 3436 Jul, [facility] [place] [facility] [address] [facility] [id number] [place] [address]- 3627 Jun, [facility] [place] [facility] [address] [facility] [id number] [place] [address]- 3656 Jun, [facility] [place] [facility] [address] [facility] [id number] [place] [address]- 7382 Jun, [facility] [place] [facility] [address] [facility] [id number] [place] [address]- 0673 Jun, [facility] [place] [facility] [address] [facility] [id number] [place] [address]- 0835 Jun, [facility] [place] [facility] [address] [facility] [id number] [place] [address]- 9250 Jun, [facility] [place] [facility] [address] [facility] [id number] [place] [address]- 4809 Jun, [facility] [place] [facility] [address] [id number] [place] [address]- 1084 Jun, [facility] [place] [facility] [address] [id number] [place] [address]- 1663 Jun, [facility] [place] [facility] [address] [id number] [place] [address]- 2680 May, [facility] [place] [facility] [address] [id number] [place] [address]- 2984 24 May, 2012 [facility] [place] [facility] [address] [id number] [place] [address]- 4254 May, [facility] [place] [facility] [address] [id number] [place] [address]- 5324 Apr, [facility] [place] [facility] [address] [id number] [place] [address]- 8156 Apr, [facility] [place] [facility] [address] [id number] [place] [address]- 4806 Apr, [facility] [place] [facility] [address] [id number] [place] [address]- 3391 Apr, [facility] [place] [facility] [address] [id number] [place] [address]- 5414 Apr, [facility] [place] [facility] [address] [id number] [place] [address]- 7903 Apr, [facility] [place] [facility] [address] [id number] [place] [address]- 2824 Mar, [facility] [place] [facility] [address] [id number] [place] [address]- 9194 Mar, [facility] [place] [facility] [address] [id number] [place] [address]- 4752 Mar, [facility] [place] [facility] [address] [id number] [place] [address]- 4671 Mar, [facility] [place] [facility] [address] [id number] [place] [address]- 3474 Feb, [facility] [address] [id number] [place] [address]- 4114 Feb, [facility] [place] [facility] [address] [id number] [place] [address]- 8298 Feb, [facility] [place] [facility] [address] [id number] [place] [address]- 0490 Feb, [facility] [place] [facility] [address] [id number] [place] [address]- 5345 Feb, [facility] [place] [facility] [address] [id number] [place] [address]- 8887 January, [facility] [place] [facility] [address] [id number] [place] [address]- 4120 January, [facility] [address] [id number] [place] [address]- 2812 January, [facility] [place] [facility] [address] [id number] [place] [address]- 7200 January, [facility] [place] [facility] [address] [id number] [place] [address]- 6162 January, [facility] [place] [facility] [address] [facility] [id number] [place] [address]- 5992 January, [facility] [place] [facility] [address] [id number] [place] [address]- 5470 Dec, [facility] [place] [facility] [address] [id number] [place] [address]- 4622 Dec, [facility] [place] [facility] [address] [id number] [place] [address]- 5677 Dec, [facility] [place] [facility] [address] [id number] [place] [address]- 9912 Dec, [facility] [place] [facility] [address] [id number] [place] [address]- 4533 Dec, [facility] [place] [facility] [address] [id number] [place] [address]- 2794 27 Nov, 2011 [facility] [place] [facility] [address] [id number] [place] [address]- 6964 14 Nov, 2011 [facility] [place] [facility] [address] [id number] [place] [address]- 8226 12 Nov, 2011 [facility] [place] [facility] [address] [id number] [place] [address]- 0871 07 Nov, 2011 [facility] [place] [facility] [address] [id number] [place] [address]- 4104 29 Oct, 2011 [facility] [place] [facility] [address] [id number] [place] [address]- 0453 28 Oct, 2011 [facility] [place] [facility] [address] [id number] [place] [address]- 6647 24 Oct, 2011 [facility] [place] [facility] [address] [id number] [place] [address]- 1690 13 Oct, 2011 [facility] [place] [facility] [address] [id number] [place] [address] 08 Oct, 2011 [facility] [place] [facility] [address] [id number] [place] [address] Sep, [facility] [place] [facility] [address] [id number] [place] [address] Sep, [facility] [place] [facility] [address] [id number] [place] [address] 39[address] Sep, [facility] [place] [facility] [address] [id number] [place] [address] Sep, [facility] [place] [facility] [address] [id number] [place] [address] Sep, [facility] [place] [facility] [address] [id number] [place] [address] Sep, [facility] [place] [facility] [address] [id number] [place] [address] Aug, [facility] [place] [facility] [address] [id number] [place] [address] 6[address] Aug, [facility] [place] [facility] [address] [id number] [place] [address] 8135 Aug, [facility] [place] [facility] [address] [id number] [place] [address]- [address]604 Jul, [facility] [place] [facility] [address] [id number] [place] [address] Jul, [facility] [place] [facility] [address] [id number] [place] [address]- 1016 Jul, [facility] [place] [facility] [address] [id number] [place] [address] Jul, [facility] [place] [facility] [address] [id number] [place] [address]- 0168 Jun, [facility] [place] [facility] [address] [id number] [place] [address]- 5868 Jun, [facility] [place] [facility] [address] [id number] [place] [address] Jun, [facility] [place] [facility] [address] [id number] [place] [address]- 4699 Jun, [facility] [place] [facility] [address] [id number] [place] [address]- 0126 Jun, [facility] [place] [facility] [address] [id number] [place] [address]- 7676 Jun, [facility] [place] [facility] [address] [id number] [place] [address]- 3542 Mar, [facility] [place] [facility] [address] [id number] [place] Dec, [facility] [place] [facility] [address] [id number] [place] [address]- 1326 Dec, [facility] [place] [facility] [address] [id number] [place] [address]- 6273 18 Nov, 2010 [facility] [address] [id number] [place] [address]- 4406 16 Nov, 2010 [facility] [address] [id number] [place] [address] 2546 10 Sep, 2010 [facility] [address] [id number] [place] [address]76 31 Aug, 2010 [facility] [address] [id number] [place] [address] 2548 29 Aug, 2010 [facility] [address] [id number] [place] [address]- 9756 29 Aug, 2010 [facility] [address] [id number] [place] [address]- 0345 29 Aug, 2010 [facility] [address] [id number] [place] [address]- 1056 27 Aug, 2010 [facility] [address] [id number] [place] [address]- 3322 14 Aug, 2010 [facility] [address] [id number] [place] [address]- 2066 08 Aug, 2010 [facility] [address] [id number] [place] [address]- 1795 08 Aug, 2010 [facility] [address] [id number] [place] [address] 2546 07 Aug, 2010 [facility] [address] [id number] [place] [address] 2546 06 Aug, 2010 [facility] [address] [id number] [place] [address] 2546 06 Aug, 2010 [facility] [address] [id number] [place] [address]- 2546 Aug, [facility] [address] [id number] [place] [address] Jul, [facility] [place] [facility] [address] [id number] [place] [address]- 3720 30 Jul, 2010 [facility] [place] [facility] [address] [id number] [place] [address]- 0098 Jul, [facility] [place] [facility] [address] [id number] [place] [address]- [address] 17 Jul, 2010 [facility] [place] [facility] [address] [id number] [place] [address]- 4382 Jul, [facility] [place] [facility] [address] [id number] [place] [address]- 7509 Jul, [facility] [place] [facility] [address] [id number] [place] [address]- 3223 24 Jun, 2010 [facility] [place] [facility] [address] [id number] [place] [address]- 6954 Jun, [facility] [place] [facility] [address] [id number] [place] [address] Jun, [facility] [place] [facility] [address] [id number] [place] [address]- 0679 Jun, [facility] [place] [facility] [address] [facility] [id number] [place] [address] Apr, [facility] [place] [facility] [address] [id number] [place] [address] 34[address] Mar, [facility] [place] [facility] [address] [id number] [place] [address] 9428 Feb, [facility] [place] [facility] [address] [id number] [place] [address] 8987 January, [facility] [place] [facility] [address] [id number] [place] [address]16 15 Dec, 2009 [facility] [place] [facility] [address] [id number] [place] [address]- 3027 Nov, [facility] [place] [facility] [address] [id number] [place] [address]- 0721 Aug, [facility] [place] [facility] [address] [id number] [place] [address]- 3579 Aug, [facility] [place] [facility] [address] [facility] [id number] [place] [address]- 2696 Aug, [facility] [place] [facility] [address] [facility] [id number] [place] [address]- 5[address] Jul, [facility] [place] [facility] [address] [facility] [id number] [place] [address]- 8127 Jul, [facility] [place] [facility] [address] [facility] [id number] [place] [address]- 1711 Jul, [facility] [place] [facility] [address] [facility] [id number] [place] [address]- 5039 Jun, [facility] [place] [facility] [address] [facility] [id number] [place] [address]- 8137 Jun, [facility] [place] [facility] [address] [facility] [id number] [place] [address]- 0103 Jun, [facility] [place] [facility] [address] [facility] [id number] [place] [address]- 4204 Jun, [facility] [place] [facility] [address] [facility] [id number] [place] [address]- 6860 Jun, [facility] [place] [facility] [address] [facility] [id number] [place] [address]- 1149 Jun, [facility] [place] [facility] [address] [facility] [id number] [place] [address]- 7074 Apr, [facility] [place] [facility] [address] [facility] [id number] [place] [address]- 8858 Apr, [facility] [place] [facility] [address] [facility] [id number] [place] [address]- 5120 Feb, [facility] [address] [facility] [id number] [place] [address] January, [facility] [address] [facility] [id number] [place] [address] Dec, IMMUNIZATIONS No Known Immunizations SOCIAL HISTORY Never Assessed REASON FOR VISIT Controlled Med Refill 07/30/18 PLAN OF CARE VITAL SIGNS MEDICATIONS Medication [...] obesity Medical History skin cancer-basal cell R samaritan (removed) Medical History Arthritis Medical History degenerative [...] EGD ([facility]) 2009 Surgical History colonoscopy 2009 ([facility]), 2013 ([place]) Surgical History heart 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 04/2014 Surgical History carotid US 05/2014 Surgical History resection of skin cancer from Right samaritan Surgical History Biopsy of Lung Bilateral/Left lung lymph node 09/2016 Surgical History Bone Marrow Biopsy Surgical History port in the right chest wall 12/2016 Hospitalization History [facility] low potassium, low magnesium, chest painina 01/2015 Hospitalization History inability to urinate 09/16/15 Hospitalization History [facility] mental health early Hospitalization History hyperkalemia 10/2017 Hospitalization History fluid in lung
--- OUTSIDE RECORDS SUMMARY | 2018-08-08 13:33 | XMS REPORT ---
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 Name Role Phone ROSELINE LUIS Unavailable PROBLEMS Type Condition ICD9-CM Code TGQ21-EX Code Onset Dates Condition Status SNOMED Code Problem Chronic lymphocytic leukemia C91.10 Active 02090448 Problem Eye exam abnormal R93.8 Active 341515366 Problem Lymphocytosis D72.820 Active 56855601 Problem Eustachian tube dysfunction, unspecified laterality H69.80 Active 62258069 Problem Dysuria R30.0 Active 87031873 Problem Cough R05 Active 19252647 Problem Polyneuropathy associated with underlying disease G63 Active 529249695 Problem Hypokalemia E87.6 Active 83018292 Problem Bilateral primary osteoarthritis of knee M17.0 Active 757269771 Problem Benign prostatic hyperplasia with lower urinary tract symptoms, unspecified morphology N40.1 Active 018780238 Problem Retinal edema H35.81 Active 1746434 Problem 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 Active 758612286 Problem Anemia of chronic illness D63.8 Active 272512604 Problem Other chronic pain G89.29 Active 98925943 Problem Other iron deficiency anemia D50.8 Active 03602988 Problem Leukocytosis D72.829 Active 605446677 Problem Chronic pain G89.29 Active 46424320 Problem DM neuro manif type II E11.49 Active 40485657 Problem Bipolar disorder, in partial remission, most recent episode depressed F31.75 Active 70542638 Problem Falling R29.6 Active 461371029 Problem Primary osteoarthritis of right knee M17.11 Active [id number] Problem Pure hypercholesterolemia E78.00 Active 344485399 Problem Bipolar I disorder, most recent episode (or current) mixed, moderate F31.62 Active 15387063 Problem Insomnia, unspecified type G47.00 Active 158321071 Problem Diabetes E11.9 Active 56947653 Problem Reactive airway disease J45.909 Active 156320356263 Problem Essential hypertension I10 Active 57916916 Problem Diabetic polyneuropathy associated with type 2 diabetes mellitus E11.42 Active 07900720 Problem Anxiety F41.9 Active 75950865 Problem Morbid obesity E66.01 Active 288638682 ALLERGIES No Information ENCOUNTERS Encounter Location Date Diagnosis [facility] [id number] [place] [address] 48374- 7347 Jul, [facility] [address] 48125- 1402 Jul, [place] [address] 20249- 9764 Jun, Bipolar I disorder, most recent episode (or current) mixed, moderate F31.62 [place] [id number] [place] [address] 02926- 2325 Jun, Pre-procedure lab exam Z01.812 [place] [address] 14336- 6197 Jun, [facility] [address] [id number] Jun, [place] [address] 61022- 9373 Jun, [facility] [id number] [place] [address] 10095- 9605 Jun, Forgetfulness R68.89 ; Pre-syncope R55 ; Localized edema R60.0 ; Other iron deficiency anemia D50.8 and BMI 50.0-59.9, adult Z68.43 [facility] [id number] [place] [address] 27662- 8318 Jun, Chronic pain G89.29 [facility] [id number] [place] [address] 09222- 2885 Jun, Chronic pain G89.29 [facility] [id number] [place] [address] 16135- 6733 Jun, Bipolar I disorder, most recent episode (or current) mixed, moderate F31.62 [place] [id number] [place] [address] 24992- 7821 May, Chronic pain G89.29 [facility] [id number] [place] [address] 17465- 0304 Apr, [place] [id number] [place] [address] 67113- 5916 Apr, Chronic pain G89.29 [place] [id number] [place] [address] 38587- 9856 Apr, Primary osteoarthritis of right knee M17.11 [place] [id number] [place] [address] 62925- 7678 Mar, [place] [id number] [place] [address] 65848- 6961 Mar, BMI 50.0-59.9, adult Z68.43 and Bipolar disorder, in partial remission, most recent episode depressed F31.75 [place] [id number] [place] [address] 46616- 6916 Mar, Diabetes E11.9 ; Pure hypercholesterolemia E78.00 ; Essential hypertension I10 ; Nausea with vomiting, unspecified R11.2 and Headache, unspecified headache type R51 [place] [id number] [place] [address] 67486- 2953 Mar, Bipolar I disorder, most recent episode (or current) mixed, moderate F31.62 [place] [id number] [place] [address] 55563- 5932 Mar, Bipolar I disorder, most recent episode (or current) mixed, moderate F31.62 [place] [id number] [place] [address] 19285- 2238 Mar, Chronic pain G89.29 [place] [id number] [place] [address] 45451- 3562 Mar, Bipolar I disorder, most recent episode (or current) mixed, moderate F31.62 [facility] [address] [address]- 9407 Feb, Bipolar I disorder, most recent episode (or current) mixed, moderate F31.62 [facility] [address] [address] 4772 14 Feb, 2018 Chronic pain G89.29 [facility] [id number] [place] [address] 86064- 6840 Feb, Decubitus ulcer of right foot, stage 3 L89.893 and BMI 50.0- 59.9, adult Z68.43 [place] [id number] [place] [address] 12593- 6801 04 Feb, 2018 Bipolar I disorder, most recent episode (or current) mixed, moderate F31.62 [place] [id number] [place] [address] 20286- 1480 Feb, [facility] [id number] [place] [address] 95730- 0795 January, [facility] [id number] [place] [address] 53890- 3653 January, Chronic pain G89.29 [facility] [id number] [place] [address] 78856- 4809 January, Bipolar I disorder, most recent episode (or current) mixed, moderate F31.62 [facility] [address] [address]- 6849 January, Bipolar I disorder, most recent episode (or current) mixed, moderate F31.62 [facility] [id number] [address]- 5208 Dec, Bipolar I disorder, most recent episode (or current) mixed, moderate F31.62 and BMI 50.0-59.9, adult Z68.43 [facility] [id number] [place] [address] 82895- 2778 Dec, Bipolar I disorder, most recent episode (or current) mixed, moderate F31.62 [place] [id number] [place] [address] 47697- 4537 Dec, Chronic pain G89.29 [place] [id number] [place] [address] 42504- 7758 Dec, DM neuro manif type II E11.49 ; Right flank pain R10.9 ; 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 ; Encounter for medication monitoring Z51.81 and BMI 50.0-59.9, adult Z68.43 [place] [id number] [place] [address] 891917- 0368 Dec, Bipolar I disorder, most recent episode (or current) mixed, moderate F31.62 [place] [id number] [place] [address] 88673- 2430 Nov, Bipolar I disorder, most recent episode (or current) mixed, moderate F31.62 [place] [id number] [place] [address] 35421- 6534 Nov, Chronic pain G89.29 [place] [id number] [place] [address] 09590- 5510 Nov, Bipolar I disorder, most recent episode (or current) mixed, moderate F31.62 [place] [id number] [place] [address] 36936- 2154 Nov, Hypokalemia E87.6 [place] [id number] [place] [address] 56288- 8979 Nov, Bipolar I disorder, most recent episode (or current) mixed, moderate F31.62 [place] [id number] [place] [address] 58073- 7338 Oct, Chronic pain G89.29 [place] [id number] [place] [address] 48225- 3269 Oct, BMI 50.0-59.9, adult Z68.43 and Bipolar I disorder, most recent episode (or current) mixed, moderate F31.62 [facility] [id number] [place] [address] 89499- 9563 Oct, Bipolar I disorder, most recent episode (or current) mixed, moderate F31.62 [facility] [id number] [place] [address] 22466- 1385 Oct, [facility] [id number] [place] [address] 00443- 0833 Oct, Hypokalemia E87.6 [facility] [id number] [place] [address] 04925- 5038 Oct, DM neuro manif type II E11.49 [facility] [id number] [place] [address] 51491- 4979 Oct, Bipolar I disorder, most recent episode (or current) mixed, moderate F31.62 [facility] [id number] [place] [address] 65737- 5242 Oct, Bipolar I disorder, most recent episode (or current) mixed, moderate F31.62 [facility] [id number] [place] [address] 61881- 7209 Oct, Hyperkalemia E87.5 ; Falling R29.6 ; BMI 50.0-59.9, adult Z68.43 and Acute left ankle pain M25.572 [facility] [id number] [place] [address] 32945- 3328 Oct, DM neuro manif type II E11.49 [facility] [id number] [place] [address] 36310- 4128 Oct, [facility] [id number] [place] [address] 03961- 3195 Sep, Chronic pain G89.29 [facility] [id number] [place] [address] 68101- 5635 Sep, [place] [id number] [place] [address] 34071- 6262 Sep, Bilateral primary osteoarthritis of knee M17.0 [place] [address] 90703- 2444 Sep, Generalized edema R60.1 [place] [address] 51742- 1469 Sep, Bipolar I disorder, most recent episode (or current) mixed, moderate F31.62 [place] [address] 30034- 6666 Sep, Hypoxia R09.02 ; Other hypervolemia E87.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 ; Anemia of chronic illness D63.8 and BMI 50.0- 59.9, adult Z68.43 [place] [id number] [place] [address] 83694- 2988 Sep, [place] [address] 54804- 7751 Sep, Bipolar I disorder, most recent episode (or current) mixed, moderate F31.62 [place] [id number] [place] [address] 14543- 8599 Aug, Chronic pain G89.29 [place] [id number] [place] [address] 56072- 7584 Aug, Generalized edema R60.1 [place] [address] 55065- 6445 Aug, [place] [id number] [place] [address] 10433- 3757 Aug, [place] [address] 66504- 9348 14 Aug, 2017 Bipolar I disorder, most recent episode (or current) mixed, moderate F31.62 [place] [id number] [place] [address]- 9571 Aug, Bipolar I disorder, most recent episode (or current) mixed, moderate F31.62 [place] [id number] [place] [address] 59013- 5477 Aug, Chronic pain G89.29 [place] [id number] [place] [address] 94956- 4477 Jul, Bipolar I disorder, most recent episode (or current) mixed, moderate F31.62 [place] [id number] [place] [address] 91785- 7462 Jul, Bipolar I disorder, most recent episode (or current) mixed, moderate F31.62 and BMI 60.0-69.9, adult Z68.44 [place] [id number] [place] [address] 19881- 4568 Jul, Bipolar I disorder, most recent episode (or current) mixed, moderate F31.62 [place] [id number] [place] [address] 94871- 7541 Jul, Chronic pain G89.29 [place] [id number] [place] [address] 02975- 2605 Jul, Bipolar I disorder, most recent episode (or current) mixed, moderate F31.62 [place] [id number] [place] [address] 47398- 4750 Jun, Polyneuropathy associated with underlying disease G63 and Diabetes E11.9 [place] [id number] [place] [address] 12476- 6920 Jun, Bipolar I disorder, most recent episode (or current) mixed, moderate F31.62 [place] [id number] [place] [address] 24444- 5850 Jun, Chronic pain G89.29 [facility] [address], [place] [address]- 7363 27 May, 2017 Bipolar I disorder, most recent episode (or current) mixed, moderate F31.62 [facility] [id number] [place] [address] 40439- 7100 21 May, 2017 Bipolar I disorder, most recent episode (or current) mixed, moderate F31.62 [facility] [id number] [place] [address] 65041- 5722 20 May, 2017 Diabetic polyneuropathy associated with type 2 diabetes mellitus E11.42 [facility] [id number] [place] [address] 970315- 6041 18 May, 2017 Bipolar I disorder, most recent episode (or current) mixed, moderate F31.62 [facility] [id number] [place] [address] 40143- 1522 13 May, 2017 Bipolar I disorder, most recent episode (or current) mixed, moderate F31.62 [facility] [id number] [place] [address] 41186- 0039 May, Chronic pain G89.29 [facility] [id number] [place] [address] 35672- 4483 Apr, Bipolar I disorder, most recent episode (or current) mixed, moderate F31.62 [facility] [id number] [place] [address] 00326- 6709 Apr, [facility] [id number] [place] [address] 32365- 2777 Apr, Chronic pain G89.29 and DM neuro manif type II E11.49 [facility] [id number] [place] [address] 16549- 0542 Apr, [facility] [id number] [place] [address] 23857- 7700 Apr, Bipolar I disorder, most recent episode (or current) mixed, moderate F31.62 [facility] [address], [place] [address]- 7154 Apr, Chronic pain G89.29 [facility] [id number] [place] [address] 56592- 6606 Apr, Iliotibial band syndrome, left M76.32 [facility] [id number] [place] [address] 97340- 7796 Apr, Bipolar I disorder, most recent episode (or current) mixed, moderate F31.62 [facility] [id number] [place] [address] 59077- 6037 Mar, Bipolar I disorder, most recent episode (or current) mixed, moderate F31.62 [facility] [address] [place] [address] 12060- 2373 Mar, Bipolar I disorder, most recent episode (or current) mixed, moderate F31.62 [facility] [id number] [place] [address] 51850- 0414 Mar, [facility] [id number] [place] [address] 09616- 8748 Mar, Bipolar I disorder, most recent episode (or current) mixed, moderate F31.62 [facility] [id number] [place] [address] 07047- 1536 Mar, Chronic pain G89.29 [facility] [id number] [place] [address] 35542- 3748 Mar, Bipolar I disorder, most recent episode (or current) mixed, moderate F31.62 [facility] [id number] [place] [address] 84978- 7775 Mar, Bipolar I disorder, most recent episode (or current) mixed, moderate F31.62 [facility] [address], [place] [address]- 6629 Mar, Acute pain of left knee M25.562 ; Left hip pain M25.552 ; Generalized edema R60.1 and Tongue swelling R22.0 [facility] [id number] [place] [address] 96749- 4366 Mar, [facility] [id number] [place] [address] 90870- 0729 Feb, Chronic pain G89.29 [facility] [id number] [place] [address] 31946- 0515 Feb, Diabetes E11.9 [facility] [id number] [place] [address] 60648- 9505 January, Chronic pain G89.29 [facility] [id number] [place] [address] 09747- 2656 January, [facility] [id number] [place] [address] 43138- 7689 January, Bipolar I disorder, most recent episode (or current) mixed, moderate F31.62 [place] [id number] [place] [address] 52506- 3071 Dec, Bipolar I disorder, most recent episode (or current) mixed, moderate F31.62 [place] [id number] [place] [address] 09865- 7380 Dec, Chronic pain G89.29 [facility] [id number] [place] [address] 41918- 8947 Dec, Bipolar I disorder, most recent episode (or current) mixed, moderate F31.62 [facility] [address] [place] [address] 65880- 6311 Dec, Diabetes E11.9 ; Essential hypertension I10 ; Chronic pain G89.29 and Morbid obesity E66.01 [facility] [id number] [place] [address] 02657- 7609 Dec, [facility] [id number] [place] [address] 96253- 8952 Dec, Bipolar I disorder, most recent episode (or current) mixed, moderate F31.62 [facility] [address], [place] [address] 2546 Dec, Bipolar I disorder, most recent episode (or current) mixed, moderate F31.62 [facility] [address], [place] [address] 2546 Nov, Chronic pain G89.29 [facility] [id number] [place] [address] 56797 2546 Nov, Bipolar I disorder, most recent episode (or current) mixed, moderate F31.62 [facility] [id number] [place] [address] 42110- 8396 Nov, [facility] [address] [place] [address] 18383 2546 Nov, Bipolar I disorder, most recent episode (or current) mixed, moderate F31.62 [facility] [address] [place] [address] 21175 2546 Nov, Bipolar I disorder, most recent episode (or current) mixed, moderate F31.62 [facility] [id number] [place] [address] 20339 2546 Nov, [facility] [address], [place] [address] 2546 Nov, [facility] [address] [place] [address] 2546 Nov, [facility] [id number], [place] [address] 2546 Oct, Chronic pain G89.29 [facility] [address] [place] [address] 57939 2546 Oct, Bipolar I disorder, most recent episode (or current) mixed, moderate F31.62 [facility] [address] [address]- 4629 Oct, [facility] [address] [place] [address] 93641- 0106 Oct, Chronic pain G89.29 ; Diabetes E11.9 ; Anxiety F41.9 and 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 [facility] [id number] [place] [address] 38019- 9667 Oct, [facility] [id number] [place] [address] 18964- 1444 Oct, Diabetes E11.9 [facility] [id number] [place] [address] 11994- 4992 Oct, Bipolar I disorder, most recent episode (or current) mixed, moderate F31.62 [facility] [id number] [place] [address] 96714- 7613 Sep, Chronic pain G89.29 [facility] [id number] [place] [address] 00992- 0542 Sep, Chronic pain G89.29 [facility] [id number] [place] [address] 17837- 7639 Aug, Chronic pain G89.29 [facility] [id number] [place] [address] 59714- 9995 Jul, [facility] [id number] [place] [address] 84850- 5372 Jul, Diabetes E11.9 [facility] [id number] [place] [address] 19977- 2311 Jul, Chronic pain G89.29 [facility] [id number] [place] [address] 61729- 2209 Jul, Bipolar I disorder, most recent episode (or current) mixed, moderate F31.62 [facility] [address] [place] [address] 47681- 5020 Jun, Bipolar I disorder, most recent episode (or current) mixed, moderate F31.62 [facility] [id number] [place] [address] 57974- 4587 Jun, [facility] [id number] [place] [address] 387521- 8261 Jun, Bipolar I disorder, most recent episode (or current) mixed, moderate F31.62 [facility] [id number] [place] [address] 68794- 5886 30 May, 2016 Insomnia, unspecified type G47.00 [facility] [id number] [place] [address] 86582- 9505 May, Bipolar I disorder, most recent episode (or current) mixed, moderate F31.62 [facility] [id number] [place] [address] 62007- 7026 14 May, 2016 [facility] [id number] [place] [address] 44707- 7141 May, Bipolar I disorder, most recent episode (or current) mixed, moderate F31.62 [facility] [id number] [place] [address] [phone]- 2686 May, Diabetes E11.9 and Essential hypertension I10 [facility] [id number] [place] [address] [phone] Apr, Chronic pain G89.29 [facility] [id number] [place] [address] [phone]- [phone] Apr, Bipolar I disorder, most recent episode (or current) mixed, moderate F31.62 [facility] [id number] [place] [address] [phone] Apr, [facility] [id number] [place] [address] [phone] Apr, [facility] [id number] [place] [address] 59518- 7456 Mar, Chronic pain G89.29 ; Headache, unspecified headache type R51 ; Neuropathy G62.9 ; Pain of right hip joint M25.551 and Essential hypertension I10 [facility] [id number] [place] [address] 86414- 1038 Mar, Chronic pain G89.29 [facility] [id number] [place] [address] [phone]- [phone] Mar, Bipolar I disorder, most recent episode (or current) mixed, moderate F31.62 [facility] [id number] [place] [address] [phone]- [phone] Feb, Bipolar I disorder, most recent episode (or current) mixed, moderate F31.62 and Insomnia, unspecified type G47.00 [facility] [id number] [place] [address] [phone]- 8415 Feb, Chronic pain G89.29 [facility] [address] 28973- 6781 Feb, Bipolar I disorder, most recent episode (or current) mixed, moderate F31.62 [facility] [address] [id number] [place] [address] 16791- 1703 January, Bipolar I disorder, most recent episode (or current) mixed, moderate F31.62 [facility] [id number] [place] [address] 93825- 7805 January, Chronic pain G89.29 [facility] [id number] [place] [address] 24339- 3876 January, Chronic pain G89.29 and Essential hypertension I10 [facility] [id number] [place] [address] 67596- 0852 January, Bipolar I disorder, most recent episode (or current) mixed, moderate F31.62 [facility] [id number] [place] [address] 38315- 8075 Dec, [facility] [address] 36927- 0951 Dec, [facility] [id number] [place] [address] 86286- 4121 Dec, [facility] [id number] [place] [address] 51740- 9326 Dec, [facility] [id number] [place] [address] 09420- 8270 Nov, Reactive airway disease J45.909 [facility] [id number] [place] [address] 45079- 1779 Nov, [facility] [address] 99128- 9185 Nov, [facility] [id number] [place] [address] 81669- 1533 Nov, [facility] [address] 45351- 2995 Nov, [facility] [id number] [place] [address] 26896- 2972 Nov, Onychomycosis B35.1 ; Hammertoe M20.40 ; [place] or callus L84 and DM neuro manif type II E11.49 [facility] [id number] [place] [address] 48270- 6644 Nov, Chronic pain G89.29 ; Leukocytosis D72.829 and Diabetes E11.9 [facility] [id number] [place] [address] 10464- 6479 Nov, [facility] [id number] [place] [address] 48935- 5582 Oct, Bronchitis J40 [facility] [id number] [place] [address] 57410- 9546 Oct, [facility] [id number] [place] [address] 66221- 2729 Oct, [facility] [id number] [place] [address]- 2770 Oct, Mastoiditis, unspecified laterality H70.90 and Type 2 diabetes mellitus with complication E11.8 [facility] [id number] [place] [address] 27797- 9598 Sep, [facility] [id number] [place] [address] 18451- 7009 Sep, Dysuria R30.0 ; Cough R05 ; Benign prostatic hyperplasia with lower urinary tract symptoms, unspecified morphology N40.1 ; Hypokalemia E87.6 and Eustachian tube dysfunction, unspecified laterality H69.80 [facility] [address] 20043- 2981 Sep, Moderate mixed bipolar I disorder F31.62 [facility] [id number] [place] [address] 10569- 1010 Sep, Hypokalemia E87.6 [facility] [id number] [place] [address] 69970- 3604 Sep, [facility] [address] 15905- 1872 Sep, Upper respiratory tract infection, unspecified type J06.9 [facility] [id number] [place] [address] 81227- 0875 Aug, [facility] [id number] [place] [address] 51687- 6330 Aug, Dysuria R30.0 [facility] [id number] [place] [address] 84943- 7930 Aug, [facility] [id number] [place] [address] 82494- 8494 Jul, [facility] [id number] [place] [address] 47167- 7806 Jul, [facility] [id number] [place] [address] 51210- 9996 Jul, [facility] [address] [address]- 4222 Jul, [facility] [address] [address]- 4583 Jun, [facility] [address] 3061 Jun, [facility] [id number] [place] [address] 412849- 7315 Jun, [facility] [id number] [place] [address] 77634- 3837 May, [facility] [id number] [place] [address] 819891- 1883 May, Bipolar I disorder, most recent episode (or current) mixed, moderate 296.62 [facility] [id number] [place] [address] 36878- 8118 May, [facility] [address] [address]- 2613 May, Bipolar I disorder, most recent episode (or current) mixed, moderate 296.62 and Major depressive disorder, recurrent episode, severe, specified as with psychotic behavior 296.34 [facility] [address] [address]- 7206 May, Bipolar I disorder, most recent episode (or current) mixed, moderate 296.62 [facility] [id number] [address]- 8286 May, [facility] [address] [address]- 1323 Apr, [facility] [address] 1224 Apr, [facility] [id number] [address]- 7922 Apr, Unspecified disorder of kidney and ureter 593.9 and Diabetes mellitus type 2, uncontrolled 250.02 [facility] [id number] [address]- 0555 Apr, [facility] [id number] [place] [address] 16338- 5066 Apr, [facility] [id number] [place] [address] 47525- 5856 Apr, [facility] [id number] [place] [address] 16195- 2453 Apr, [facility] [id number] [place] [address] 62902- 7639 Apr, Diabetes mellitus type II, uncontrolled 250.02 [facility] [id number] [place] [address] 60830- 2271 Apr, [facility] [id number] [place] [address] 34984- 2033 Mar, [facility] [id number] [place] [address] 29295- 3623 Mar, [facility] [id number] [place] [address] 67518- 3636 Mar, [facility] [address], [place] [address]- 8511 Mar, Major depressive disorder, recurrent episode, severe, specified as with psychotic behavior 296.34 and Bipolar I disorder, most recent episode (or current) mixed, moderate 296.62 [facility] [address], [place] [address]- 5195 Mar, Diabetes 250.00 ; Anuria 788.5 ; Nausea and vomiting 787.01 and Diarrhea 787.91 [facility] [address], [place] [address]- 4172 Mar, Diabetes 250.00 [facility] [id number] [place] [address] 46206- 8189 Mar, [facility] [id number] [address]- 4301 Mar, Diabetes 250.00 [facility] [address], [place] [address]- 1945 Mar, [facility] [address], [place] [address]- 0438 Mar, [facility] [id number] [place] [address] 52256- 6240 Mar, [facility] [address], [place] [address]- 6992 Mar, [facility] [id number] [place] [address] 99835- 8405 Mar, Bipolar I disorder, most recent episode (or current) mixed, moderate 296.62 and Major depressive disorder, recurrent episode, severe, specified as with psychotic behavior 296.34 [facility] [address], [place] [address]- 5008 Mar, Magnesium deficiency 275.2 ; Hypokalemia 276.8 ; Nausea & vomiting 787.01 and Diabetes mellitus type 2, uncontrolled 250.02 [facility] [address], [place] [address]- 5542 Feb, [facility] [address], [place] [address]- 1319 Feb, Bipolar I disorder, most recent episode (or current) mixed, moderate 296.62 [facility] [id number] [address]- 3166 Feb, Nausea and vomiting 787.01 ; Left elbow pain 719.42 ; Anuria 788.5 and Diabetes 250.00 [facility] [address], [place] [address]- 7173 Feb, [facility] [id number] [place] [address] 48196- 5794 Feb, Hypopotassemia 276.8 and Hypokalemia 276.8 [facility] [id number] [place] [address] 13013- 1953 Feb, Hypopotassemia 276.8 and Hypokalemia 276.8 [facility] [id number] [place] [address] 48590- 3367 Feb, Seborrheic keratoses 702.19 [facility] [id number] [place] [address] 47925- 7705 Feb, Hypopotassemia 276.8 and Low magnesium levels 275.2 [facility] [id number] [place] [address] 10948- 2515 January, [facility] [id number] [place] [address] 38852- 6896 January, [facility] [id number] [place] [address] 94753- 0887 January, [facility] [id number] [place] [address] 34094- 2752 January, Scalp lesion 709.9 [facility] [id number] [place] [address] 22351- 3728 January, [facility] [id number] [place] [address] 53753- 4125 Dec, Tear of medial cartilage or meniscus of knee, current 836.0 and 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 [facility] [address], [place] [address]- 9195 Dec, [facility] [id number] [place] [address] 21960- 3848 Dec, [facility] [id number] [place] [address] 75590- 8612 Dec, Squamous cell carcinoma, 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 [facility] [id number] [place] [address] 44805- 3390 14 Dec, 2014 [facility] [place] [facility] [address] [id number] [place] [address]- 8364 Dec, [facility] [place] [facility] [address] [id number] [place] 0854 Nov, [facility] [place] [facility] [address] [id number] [place] [address]- 7519 Nov, [facility] [place] [facility] [address] [id number] [place] [address]- 2490 Nov, [facility] [place] [facility] [address] [id number] [place] [address]- 0314 Nov, [facility] [place] [facility] [address] [id number] [place] [address]- 1288 Nov, [facility] [place] [facility] [address] [facility] [id number] [place] [address]- 4332 Nov, [facility] [place] [facility] [address] [facility] [id number] [place] [address]- 6752 Nov, [facility] [place] [facility] [address] [id number] [place] [address]- 7265 Nov, [facility] [place] [facility] [address] [facility] [id number] [place] [address]- 9304 Nov, [facility] [place] [facility] [address] [id number], [place] [address]- 4823 Nov, [facility] [place] [facility] [address] [facility] [id number], [place] [address]- 2955 Nov, [facility] [place] [facility] [address] [id number] [place] [address]- 3354 Nov, [facility] [place] [facility] [address] [facility] [id number], [place] [address]- 8054 Oct, [facility] [place] [facility] [address] [facility] [id number] [place] [address]- 8919 Oct, [facility] [place] [facility] [address] [id number] [place] [address]- 3027 Oct, 2014 [facility] [place] [facility] [address] [id number] [place] [address]- 3113 Oct, 2014 [facility] [place] [facility] [address] [id number] [place] [address]- 7871 Oct, 2014 [facility] [place] [facility] [address] [id number] [place] [address]- 9571 Oct, 2014 [facility] [place] [facility] [address] [id number] [place] [address]- 8435 Oct, 2014 [facility] [place] [facility] [address] [id number] [place] [address]- 2780 Oct, 2014 [facility] [place] [facility] [address] [facility] [id number] [place] [address]- 9257 Oct, 2014 [facility] [place] [facility] [address] [id number], [place] [address]- 7554 Sep, [facility] [place] [facility] [address] [id number] [place] [address]- 7136 Sep, [facility] [place] [facility] [address] [facility] [id number], [place] [address]- 0323 Sep, [facility] [place] [facility] [address] [facility] [id number], [place] [address]- 4402 Sep, [facility] [place] [facility] [address] [id number], [place] [address]- 8933 Sep, [facility] [place] [facility] [address] [id number], [place] [address]- 6008 Sep, [facility] [place] [facility] [address] [id number], [place] [address]- 7063 Sep, [facility] [place] [facility] [address] [id number], [place] [address]- 2027 Sep, [facility] [place] [facility] [address] [id number], [place] [address]- 4867 Sep, [facility] [place] [facility] [address] [id number] [place] [address]- 7828 Sep, [facility] [place] [facility] [address] [id number] [place] [address]- 0934 Sep, [facility] [place] [facility] [address] [facility] [id number] [place] [address]- 4326 Sep, [facility] [place] [facility] [address] [id number] [place] [address]- 1775 Sep, [facility] [place] [facility] [address] [id number] [place] [address]- 4445 Sep, [facility] [place] [facility] [address] [id number] [place] [address]- 1891 Sep, [facility] [place] [facility] [address] [facility] [id number] [place] [address]- 0634 Sep, [facility] [place] [facility] [address] [id number] [place] [address]- 1214 Aug, [facility] [place] [facility] [address] [id number] [place] [address]- 4306 Aug, [facility] [place] [facility] [address] [facility] [id number] [place] [address]- 0390 31 Aug, 2014 [facility] [place] [facility] [address] [id number] [place] [address]- 5864 31 Aug, 2014 [facility] [place] [facility] [address] [id number] [place] [address]- 7258 31 Aug, 2014 [facility] [place] [facility] [address] [id number] [place] [address]- 2882 31 Aug, 2014 [facility] [place] [facility] [address] [id number] [place] [address]- 9773 17 Aug, 2014 [facility] [place] [facility] [address] [facility] [id number] [place] [address]- 4766 17 Aug, 2014 [facility] [place] [facility] [address] [id number] [place] [address]- 1665 Aug, [facility] [address] [id number] [place] [address]- 6359 Aug, [facility] [address] [id number] [place] [address]- 4248 Aug, [facility] [address] [place] [id number] Aug, [facility] [address] [id number] [place] [address]- 8746 Aug, [facility] [address] [id number] [place] [address]- 8207 Aug, [facility] [address] [id number] [place] [address]- 4689 Aug, [facility] [address] [id number] [place] [address]- 3748 Aug, [facility] [address] [id number] [place] [address]- 2060 Aug, [facility] [address] [id number] [place] [address]- 2656 Aug, [facility] [address] [id number] [place] [address]- 8939 Aug, [facility] [address] [id number] [place] [address]- 1535 Aug, [facility] [address] [id number] [place] [address]- 1864 Aug, [facility] [address] [id number] [place] [address]- 1876 Aug, [facility] [address] [id number] [place] [address]- 5990 Aug, [facility] [address] [id number] [place] [address]- 6454 Aug, [facility] [place] [facility] [address] [id number] [place] [address]- 3438 Aug, [facility] [place] [facility] [address] [id number] [place] [address]- 3663 Aug, [facility] [place] [facility] [address] [id number] [place] [address]- 6272 Aug, [facility] [place] [facility] [address] [id number] [place] [address]- 7806 Aug, [facility] [place] [facility] [address] [id number] [place] [address]- 3812 Aug, [facility] [place] [facility] [address] [id number] [place] [address]- 2214 Aug, [facility] [place] [facility] [address] [id number] [place] [address]- 5622 Jul, [facility] [place] [facility] [address] [id number] [place] [address]- 2291 Jul, [facility] [place] [facility] [address] [id number] [place] [address]- 3744 Jul, [facility] [place] [facility] [address] [id number] [place] [address]- 1217 Jul, [facility] [place] [facility] [address] [id number] [place] [address]- 9357 Jul, [facility] [place] [facility] [address] [id number] [place] [address]- 2759 Jul, [facility] [place] [facility] [address] [id number] [place] [address]- 1141 Jul, [facility] [place] [facility] [address] [id number] [place] [address]- 7006 Jul, [facility] [place] [facility] [address] [id number] [place] [address]- 0461 Jul, [facility] [place] [facility] [address] [id number] [place] [address]- 5011 Jul, [facility] [place] [facility] [address] [id number] [place] [address]- 1311 Jun, [facility] [place] [facility] [address] [id number] [place] 7810 Jun, [facility] [place] [facility] [address] [id number] [place] [address]- 1937 Jun, [facility] [place] [facility] [address] [id number] [place] [address]- 6809 Jun, [facility] [place] [facility] [address] [id number] [place] [address]- 7547 Jun, [facility] [place] [facility] [address] [id number] [place] [address]- 3350 Jun, [facility] [place] [facility] [address] [id number] [place] [address]- 5125 Jun, [facility] [place] [facility] [address] [id number] [place] [address]- 0284 Jun, [facility] [place] [facility] [address] [id number] [place] [address]- 8472 Jun, [facility] [place] [facility] [address] [id number] [place] [address]- 1746 Jun, [facility] [place] [facility] [address] [id number] [place] [address]- 8475 29 May, 2014 [facility] [place] [facility] [address] [id number] [place] [address]- 2434 29 May, 2013 [facility] [place] [facility] [address] [id number] [place] [address]- 2950 26 May, 2013 [facility] [place] [facility] [address] [id number] [place] [address]- 6466 26 May, 2013 [facility] [place] [facility] [address] [id number] [place] [address]- 9302 17 May, 2013 [facility] [place] [facility] [address] [id number] [place] [address]- 5397 17 May, 2013 [facility] [place] [facility] [address] [id number] [place] [address] 2546 15 May, 2013 [facility] [place] [facility] [address] [id number] [place] [address] 2546 15 May, 2013 [facility] [place] [facility] [address] [id number] [place] [address] 15 May, 2013 [facility] [place] [facility] [address] [id number] [place] [address] 15 May, 2013 [facility] [place] [facility] [address] [id number] [place] [address] 2847 10 May, 2013 [facility] [place] [facility] [address] [id number] [place] [address] 10 May, 2013 [facility] [place] [facility] [address] [id number] [place] [address] 09 May, 2013 [facility] [place] [facility] [address] [id number] [place] [address] 09 May, 2013 [facility] [place] [facility] [address] [id number] [place] [address] 04 May, 2013 [facility] [place] [facility] [address] [id number] [place] [address] 04 May, 2013 [facility] [place] [facility] [address] [id number] [place] [address] Apr, [facility] [place] [facility] [address] [id number] [place] [address]- [address] Apr, [facility] [place] [facility] [address] [id number] [place] [address] Apr, [facility] [place] [facility] [address] [id number] [place] [address]47 Apr, [facility] [place] [facility] [address] [id number] [place] [address] 39[address] Apr, [facility] [place] [facility] [address] [id number] [place] [address]- 4026 Apr, [facility] [place] [facility] [address] [id number] [place] [address] Apr, [facility] [place] [facility] [address] [id number] [place] [address] 3814 Apr, [facility] [place] [facility] [address] [id number] [place] [address]- [address] Apr, [facility] [place] [facility] [address] [id number] [place] [address] Apr, [facility] [place] [facility] [address] [id number] [place] [address]- [address] Apr, [facility] [place] [facility] [address] [id number] [place] [address]- [address]14 Apr, [facility] [place] [facility] [address] [id number] [place] [address]- [address] Apr, [facility] [place] [facility] [address] [id number] [place] [address]- 8564 Apr, [facility] [place] [facility] [address] [id number] [place] [address]- 0719 Apr, [facility] [place] [facility] [address] [id number] [place] [address]- [address] Mar, [facility] [place] [facility] [address] [id number] [place] [address]- [address] Mar, [facility] [place] [facility] [address] [id number] [place] [address]- [address]992 Mar, [facility] [place] [facility] [address] [id number] [place] [address]- [address]279 Mar, [facility] [place] [facility] [address] [id number] [place] [address]- 0696 Mar, [facility] [place] [facility] [address] [id number] [place] [address]- [address]80 Mar, 2013 [facility] [place] [facility] [address] [id number] [place] [address]- [address] Mar, 2013 [facility] [place] [facility] [address] [id number] [place] [address]- [address] Mar, 2013 [facility] [place] [facility] [address] [id number] [place] [address]- 9547 Mar, 2013 [facility] [place] [facility] [address] [id number] [place] [address]- [address]559 Mar, 2013 [facility] [place] [facility] [address] [id number] [place] [address]- 93[address] Mar, 2013 [facility] [place] [facility] [address] [id number] [place] [address]- 7869 Mar, 2013 [facility] [place] [facility] [address] [id number] [place] [address]- [address]81 Mar, 2013 [facility] [place] [facility] [address] [id number] [place] [address]- [address] Mar, 2013 [facility] [place] [facility] [address] [id number] [place] [address]- [address] Mar, 2013 [facility] [place] [facility] [address] [id number] [place] [address]- [address]192 Mar, 2013 [facility] [place] [facility] [address] [id number] [place] [address]- [address] Mar, [facility] [place] [facility] [address] [id number] [place] [address]- 6474 Mar, [facility] [place] [facility] [address] [id number] [place] [address]- 1809 Feb, [facility] [place] [facility] [address] [id number] [place] [address]- 7521 Feb, [facility] [place] [facility] [address] [id number] [place] [address]- [address] Feb, [facility] [place] [facility] [address] [id number] [place] [address]- 1800 Feb, [facility] [place] [facility] [address] [id number] [place] [address]- [address]78 Feb, [facility] [place] [facility] [address] [id number] [facility] [place] [address]- [address] Feb, [facility] [place] [facility] [address] [id number] [place] [address]- [address] Feb, [facility] [place] [facility] [address] [id number] [place] [address]- 1572 Feb, [facility] [place] [facility] [address] [id number] [place] [address]- 5607 Feb, [facility] [place] [facility] [address] [id number] [place] [address]- 0219 Feb, [facility] [place] [facility] [address] [id number] [place] [address]- 0065 Feb, [facility] [place] [facility] [address] [id number] [place] [address]- [address]156 Feb, [facility] [place] [facility] [address] [id number] [place] [address] Feb, [facility] [place] [facility] [address] [id number] [place] [address] Feb, [facility] [place] [facility] [address] [id number] [place] [address] 3669 January, [facility] [place] [facility] [address] [id number] [place] [address] 6659 January, [facility] [place] [facility] [address] [id number] [place] [address]- 6726 January, [facility] [place] [facility] [address] [id number] [place] [address] 3232 January, [facility] [place] [facility] [address] [id number] [place] [address] 1949 January, [facility] [place] [facility] [address] [id number] [place] [address] 3398 January, [facility] [place] [facility] [address] [id number] [place] [address] 0113 January, [facility] [place] [facility] [address] [id number] [place] [address]- 0257 January, [facility] [place] [facility] [address] [id number] [place] [address] 1680 January, [facility] [place] [facility] [address] [id number] [place] [address]- 2852 January, [facility] [place] [facility] [address] [id number] [place] [address]- 4349 January, [facility] [place] [facility] [address] [id number] [place] [address]- 6217 January, [facility] [place] [facility] [address] [id number] [place] [address]- 0522 January, [facility] [place] [facility] [address] [id number] [place] [address]- 1743 January, [facility] [place] [facility] [address] [id number] [place] [address]- 8547 Dec, [facility] [place] [facility] [address] [id number] [place] [address]- 9115 Dec, [facility] [place] [facility] [address] [id number] [place] [address]- 1609 Dec, [facility] [place] [facility] [address] [id number] [place] [address]- 2358 Dec, [facility] [place] [facility] [address] [id number] [place] [address]- 9080 Dec, [facility] [place] [facility] [address] [id number] [place] [address]- 6936 Dec, [facility] [place] [facility] [address] [id number] [place] [address]- 2434 Dec, [facility] [place] [facility] [address] [id number] [place] [address]- 8438 Dec, [facility] [place] [facility] [address] [id number] [place] [address] Dec, [facility] [place] [facility] [address] [id number] [place] [address]- 7055 Dec, [facility] [place] [facility] [address] [id number] [place] [address]- 9295 Nov, [facility] [place] [facility] [address] [id number] [place] [address]- 5773 Nov, [facility] [place] [facility] [address] [id number] [place] [address]- 5312 Nov, [facility] [place] [facility] [address] [id number] [place] [address]- 2227 Nov, [facility] [place] [facility] [address] [id number] [place] [address]- 6330 Nov, [facility] [place] [facility] [address] [id number] [place] [address]- 8227 Nov, [facility] [place] [facility] [address] [facility] [id number] [place] [address]- 9473 Nov, [facility] [place] [facility] [address] [id number] [place] [address]- 7231 Nov, [facility] [place] [facility] [address] [id number] [place] [address]- 1425 Nov, [facility] [place] [facility] [address] [id number] [place] [address]- 2556 Nov, [facility] [place] [facility] [address] [id number] [place] [address]- 2007 Oct, [facility] [place] [facility] [address] [id number] [place] [address]- 9638 Oct, [facility] [place] [facility] [address] [id number] [place] [address]- 1778 Oct, [facility] [place] [facility] [address] [id number] [place] [address]- 2106 Oct, [facility] [place] [facility] [address] [id number] [place] [address]- 0366 Oct, [facility] [place] [facility] [address] [id number] [place] [address]- 8927 Oct, [facility] [place] [facility] [address] [id number] [place] [address] 2546 Oct, [facility] [place] [facility] [address] [id number] [place] [address]- 6340 Oct, [facility] [place] [facility] [address] [id number] [place] [address]- 8555 Oct, [facility] [place] [facility] [address] [id number] [place] [address]- 2168 Oct, [facility] [place] [facility] [address] [id number] [place] [address]- 8055 Oct, [facility] [place] [facility] [address] [id number] [place] [address]- 1715 Oct, [facility] [place] [facility] [address] [id number] [place] [address]- 7532 Oct, [facility] [place] [facility] [address] [id number] [place] [address]- 7686 Oct, [facility] [place] [facility] [address] [id number] [place] [address]- 2388 Sep, [facility] [place] [facility] [address] [id number] [place] [address]- 7105 Sep, [facility] [place] [facility] [address] [id number] [place] [address]- 8635 Sep, [facility] [place] [facility] [address] [id number] [place] [address]- 9527 15 Sep, 2013 [facility] [address] [id number] [place] [address]- 4525 14 Sep, 2013 [facility] [place] [facility] [address] [id number] [place] [address]- 5722 14 Sep, 2013 [facility] [address] [id number] [place] [address]- 3817 14 Sep, 2013 [facility] [place] [facility] [address] [id number] [place] [address]- 8906 Sep, [facility] [address] [id number] [place] [address]- 2842 Sep, [facility] [address] [id number] [place] [address]- 5038 Sep, [facility] [address] [id number] [place] [address]- 4269 Aug, [facility] [address] [id number] [place] [address]- 4892 Aug, [facility] [place] [facility] [address] [id number] [place] [address]- 9620 Jul, [facility] [address] [id number] [place] [address]- 3988 Jul, [facility] [place] [facility] [address] [id number] [place] [address]- 3563 Jul, [facility] [place] [facility] [address] [id number] [place] [address]- 6683 Jul, [facility] [place] [facility] [address] [id number] [place] [address]- 9486 Jul, [facility] [place] [facility] [address] [id number] [place] [address]- 5050 Jul, [facility] [place] [facility] [address] [id number] [place] [address]- 9054 Jul, [facility] [place] [facility] [address] [id number] [place] [address]- 3963 Jul, [facility] [place] [facility] [address] [id number] [place] [address]- 1548 Jul, [facility] [place] [facility] [address] [id number] [place] [address]- 1625 Jul, [facility] [place] [facility] [address] [id number] [place] [address]- 4454 Jul, [facility] [place] [facility] [address] [id number] [place] [address]- 2912 Jul, [facility] [place] [facility] [address] [id number], [place] [address]- 5154 Jul, [facility] [place] [facility] [address] [id number] [place] [address]- 8708 Jul, [facility] [place] [facility] [address] [id number], [place] [address]- 3037 Jul, [facility] [place] [facility] [address] [id number], [place] [address]- 9858 Jul, [facility] [place] [facility] [address] [id number], [place] [address]- 5413 Jul, [facility] [place] [facility] [address] [id number], [place] [address]- 5002 Jul, [facility] [place] [facility] [address] [id number], [place] [address]- 6745 Jul, [facility] [place] [facility] [address] [id number], [place] [address]- 7020 Jun, [facility] [place] [facility] [address] [id number], [place] [address]- 3437 Jun, [facility] [place] [facility] [address] [id number], [place] [address]- 4266 Jun, [facility] [place] [facility] [address] [id number] [place] [address]- 5252 16 Jun, 2012 [facility] [place] [facility] [address] [id number] [place] [address]- 8775 16 Jun, 2012 [facility] [place] [facility] [address] [id number] [place] [address]- 3257 16 Jun, 2012 [facility] [place] [facility] [address] [id number] [place] [address]- 7547 10 Jun, 2012 [facility] [place] [facility] [address] [id number] [place] [address]- 6311 10 Jun, 2012 [facility] [place] [facility] [address] [id number] [place] [address]- 1143 09 Jun, 2012 [facility] [place] [facility] [address] [id number] [place] [address]- 6234 09 Jun, 2012 [facility] [place] [facility] [address] [id number] [place] [address]- 5134 01 Jun, 2012 [facility] [place] [facility] [address] [id number] [place] [address]- 5546 26 Sep, 2012 [facility] [place] [facility] [address] [id number] [place] [address]- 3042 25 Sep, 2012 [facility] [place] [facility] [address] [facility] [id number] [place] [address]- 6681 19 Sep, 2012 [facility] [place] [facility] [address] [id number] [place] [address]- 8060 17 Sep, 2012 [facility] [place] [facility] [address] [id number], [place] [address]- 254 11 Sep, 2012 [facility] [place] [facility] [address] [id number] [place] [address]- 1885 10 Sep, 2012 [facility] [place] [facility] [address] [id number] [place] [address]- 6088 09 Sep, 2012 [facility] [place] [facility] [address] [id number], [place] [address]- 0764 05 Sep, 2012 [facility] [place] [facility] [address] [id number] [place] [address]- 0278 Apr, [facility] [place] [facility] [address] [id number] [place] [address]- 9856 Apr, [facility] [place] [facility] [address] [id number] [place] [address]- 3081 Apr, [facility] [place] [facility] [address] [id number] [place] [address]- 6931 Apr, [facility] [place] [facility] [address] [id number] [place] [address]- 6704 Apr, [facility] [place] [facility] [address] [id number] [place] [address]- 2097 Mar, [facility] [place] [facility] [address] [id number] [place] [address]- 0969 Mar, [facility] [place] [facility] [address] [id number] [place] [address]- 3489 Mar, [facility] [place] [facility] [address] [id number] [place] [address]- 7622 Mar, [facility] [place] [facility] [address] [id number] [place] [address]- 2647 Mar, [facility] [place] [facility] [address] [id number] [place] [address]- 7630 Mar, [facility] [place] [facility] [address] [id number] [place] [address]- 2474 Mar, [facility] [place] [facility] [address] [id number] [place] [address]- 4353 Mar, [facility] [place] [facility] [address] [id number] [place] [address]- 7268 Feb, [facility] [place] [facility] [address] [id number] [place] [address]- 0974 Feb, [facility] [place] [facility] [address] [id number] [place] [address]- 0725 January, [facility] [address] [id number] [place] [address]- 4068 January, [facility] [address] [id number] [place] [address]- 8340 Dec, [facility] [address] [facility] [id number] [place] [address] Dec, [facility] [address] [id number] [place] [address]- 3401 Nov, [facility] [address] [id number] [place] [address]- 5946 Nov, [facility] [address] [facility] [id number] [place] [address]- 0628 Nov, [facility] [address] [facility] [id number] [place] [address]- 4836 Nov, [facility] [address] [id number] [place] [address]- 2064 Oct, [facility] [address] [facility] [id number] [place] [address]- 3348 Oct, [facility] [address] [facility] [id number] [place] [address]- 3084 Oct, [facility] [address] [facility] [id number], [place] [address]- 8767 Oct, [facility] [place] [facility] [address] [facility] [id number], [place] [address]- 5253 16 Oct, 2012 [facility] [place] [facility] [address] [facility] [id number] [place] [address]- 4383 14 Oct, 2012 [facility] [place] [facility] [address] [facility] [id number], [place] [address]- 2199 08 Oct, 2012 [facility] [place] [facility] [address] [id number], [place] [address]- 3428 07 Oct, 2012 [facility] [place] [facility] [address] [id number] [place] [address]- 4066 Oct, [facility] [address] [id number] [place] [address]- 5666 Sep, [facility] [address] [id number] [place] [address]- 4672 Sep, [facility] [address] [id number] [place] [address]- 6957 Sep, [facility] [address] [id number] [place] [address]- 1659 Sep, [facility] [address] [id number] [place] [address]- 3944 Sep, [facility] [address] [id number] [place] [address]- 9861 Sep, [facility] [address] [id number] [place] [address]- 7037 Sep, [facility] [address] [id number] [place] [address]- 1843 Sep, [facility] [address] [id number] [place] [address]- 5992 Aug, [facility] [address] [id number] [place] [address]- 7568 Aug, [facility] [address] [id number] [place] [address]- 4869 Aug, [facility] [address] [id number] [place] [address]- 5653 Aug, [facility] [place] [facility] [address] [id number] [place] [address]- 3626 Aug, [facility] [address] [id number] [place] [address]- 6115 Aug, [facility] [address] [id number], [place] [address]- 8015 Aug, [facility] [place] [facility] [address] [id number] [place] [address]- 5629 Aug, [facility] [place] [facility] [address] [id number] [place] [address]- 7230 Jul, [facility] [place] [facility] [address] [facility] [id number] [place] [address]- 6348 Jul, [facility] [place] [facility] [address] [id number], [place] [address]- 1833 Jul, [facility] [place] [facility] [address] [id number] [place] [address]- 2321 Jul, [facility] [place] [facility] [address] [id number], [place] [address]- 8496 Jul, [facility] [place] [facility] [address] [id number], [place] [address]- 8464 Jul, [facility] [place] [facility] [address] [id number], [place] [address]- 4575 Jun, [facility] [place] [facility] [address] [id number], [place] [address]- 8398 Jun, [facility] [place] [facility] [address] [id number], [place] [address]- 3825 Jun, [facility] [place] [facility] [address] [id number], [place] [address]- 8114 Jun, [facility] [place] [facility] [address] [id number], [place] [address]- 0825 Jun, [facility] [place] [facility] [address] [id number], [place] [address]- 9289 Jun, [facility] [place] [facility] [address] [facility] [id number], [place] [address]- 2513 Jun, [facility] [place] [facility] [address] [facility] [id number], [place] [address]- 3352 Jun, [facility] [place] [facility] [address] [id number] [place] [address]- 6633 10 Jun, 2012 [facility] [address] [id number] [place] [address]- 1729 26 May, 2012 [facility] [place] [facility] [address] [id number] [place] [address]- 1616 24 May, 2012 [facility] [place] [facility] [address] [id number] [place] [address]- 5961 18 May, 2012 [facility] [place] [facility] [address] [id number] [place] [address]- 6806 30 Apr, 2012 [facility] [place] [facility] [address] [id number] [place] [address]- 7070 Apr, [facility] [place] [facility] [address] [id number] [place] [address]- 4777 Apr, [facility] [place] [facility] [address] [id number] [place] [address]- 2627 Apr, [facility] [place] [facility] [address] [id number] [place] [address]- 3223 Apr, [facility] [place] [facility] [address] [id number] [place] [address]- 9711 Apr, [facility] [place] [facility] [address] [id number] [place] [address]- 2823 Mar, [facility] [place] [facility] [address] [id number] [place] [address]- 2543 Mar, [facility] [place] [facility] [address] [id number] [place] [address]- 0409 Mar, [facility] [place] [facility] [address] [id number] [place] [address]- 4692 Mar, [facility] [place] [facility] [address] [id number] [place] [address]- 5762 Feb, [facility] [place] [facility] [address] [id number] [place] [address]- 1407 Feb, [facility] [address] [id number] [place] [address]- 7893 Feb, [facility] [place] [facility] [address] [id number] [place] [address]- 2827 Feb, [facility] [place] [facility] [address] [id number] [place] [address]- 3547 Feb, [facility] [place] [facility] [address] [id number] [place] [address]- 7262 January, [facility] [place] [facility] [address] [id number] [place] [address]- 9065 January, [facility] [place] [facility] [address] [id number] [place] [address]- 1053 January, [facility] [place] [facility] [address] [id number] [place] [address]- 3351 January, [facility] [place] [facility] [address] [id number] [place] [address]- 8507 January, [facility] [place] [facility] [address] [id number] [place] [address]- 2716 January, [facility] [place] [facility] [address] [id number] [place] [address]- 9848 Dec, [facility] [place] [facility] [address] [id number] [place] [address]- 6031 Dec, [facility] [place] [facility] [address] [id number] [address] Dec, [facility] [place] [facility] [address] [id number] [place] [address] Dec, [facility] [place] [facility] [address] [id number] [place] [address] Dec, [facility] [place] [facility] [address] [id number] [place] [address] Nov, [facility] [place] [facility] [address] [id number] [place] [address] 14 Nov, 2011 [facility] [address] [id number] [place] [address] 12 Nov, 2011 [facility] [place] [facility] [address] [id number] [place] [address] 07 Nov, 2011 [facility] [place] [facility] [address] [id number] [place] [address] 29 Oct, 2011 [facility] [place] [facility] [address] [id number] [place] [address] 28 Oct, 2011 [facility] [place] [facility] [address] [id number] [place] [address] 24 Oct, 2011 [facility] [place] [facility] [address] [id number] [place] [address] 13 Oct, 2011 [facility] [place] [facility] [address] [id number] [place] [address] 08 Oct, 2011 [facility] [place] [facility] [address] [id number] [place] [address] Sep, [facility] [place] [facility] [address] [id number] [place] [address] Sep, [facility] [place] [facility] [address] [facility] [id number] [place] [address] Sep, [facility] [place] [facility] [address] [id number] [place] [address] Sep, [facility] [place] [facility] [address] [id number] [place] [address] Sep, [facility] [place] [facility] [address] [id number] [place] [address] Sep, [facility] [place] [facility] [address] [id number] [place] [address]- [address] Aug, [facility] [place] [facility] [address] [id number] [place] [address] Aug, [facility] [place] [facility] [address] [id number] [place] [address] Aug, [facility] [place] [facility] [address] [id number] [place] [address] Jul, [facility] [place] [facility] [address] [id number] [place] [address] Jul, [facility] [place] [facility] [address] [id number] [place] [address] Jul, [facility] [place] [facility] [address] [id number] [place] [address] Jul, [facility] [place] [facility] [address] [id number] [place] [address] Jun, [facility] [place] [facility] [address] [id number] [place] [address] Jun, [facility] [place] [facility] [address] [id number] [place] [address] Jun, [facility] [place] [facility] [address] [id number] [place] [address] Jun, [facility] [place] [facility] [address] [id number] [place] [address] Jun, [facility] [place] [facility] [address] [id number] [place] [address] Jun, [facility] [place] [facility] [address] [id number] [place] [address] Mar, [facility] [place] [facility] [address] [id number] [place] [address] Dec, [facility] [place] [facility] [address] [id number] [place] [address] Dec, [facility] [place] [facility] [address] [id number] [place] [address] Nov, [facility] [place] [facility] [address] [id number] [place] [address]- [address]46 16 Nov, 2010 [facility] [address] [id number] [place] [address] 2546 10 Sep, 2010 [facility] [place] [facility] [address] [id number] [place] [address] 2546 31 Aug, 2010 [facility] [place] [facility] [address] [id number] [place] [address] 2546 29 Aug, 2010 [facility] [place] [facility] [address] [id number] [place] [address] 2546 29 Aug, 2010 [facility] [place] [facility] [address] [id number] [place] [address] 2546 29 Aug, 2010 [facility] [place] [facility] [address] [id number] [place] [address] 27 Aug, 2010 [facility] [place] [facility] [address] [id number] [place] [address]- [address] 14 Aug, 2010 [facility] [place] [facility] [address] [id number] [place] [address] 2547 08 Aug, 2010 [facility] [place] [facility] [address] [id number] [place] [address] 2545 08 Aug, 2010 [facility] [place] [facility] [address] [id number] [place] [address] 2544 Aug, [facility] [place] [facility] [address] [id number] [place] [address] 2546 06 Aug, 2010 [facility] [place] [facility] [address] [id number] [place] [address] 2546 06 Aug, 2010 [facility] [place] [facility] [address] [id number] [place] [address] 2546 Aug, [facility] [place] [facility] [address] [id number] [place] [address] 2546 30 Jul, 2010 [facility] [place] [facility] [address] [id number] [place] [address] 2546 30 Jul, 2010 [facility] [place] [facility] [address] [id number] [place] [address]- [address] 30 Jul, 2010 [facility] [address] [id number] [place] [address]- 1369 17 Jul, 2010 [facility] [place] [facility] [address] [id number] [place] [address] 2546 08 Jul, 2010 [facility] [address] [id number] [place] [address]- [address] Jul, [facility] [place] [facility] [address] [id number] [place] [address] 24 Jun, 2010 [facility] [address] [id number] [place] [address], [place] [address]- [address] Jun, [facility] [place] [facility] [address] [id number] [place] [address]- 9890 Jun, [facility] [address] [id number] [place] [address]- 49[address] Jun, [facility] [address] [id number] [place] [address]- [address]484 16 Apr, 2010 [facility] [place] [facility] [address] [id number] [place] [address]- 1509 Mar, [facility] [address] [id number] [place] [address] Feb, [facility] [place] [facility] [address] [id number] [place] [address]- [address] January, [facility] [place] [facility] [address] [id number] [place] [address]- [address] 15 Dec, 2009 [facility] [place] [facility] [address] [id number] [place] [address]- 1438 11 Nov, 2009 [facility] [place] [facility] [address] [id number] [place] [address]- 0787 31 Aug, 2009 [facility] [place] [facility] [address] [id number] [place] [address]- 1573 Aug, [facility] [address] [id number] [address] Aug, [facility] [address] [facility] [id number] [address] Jul, [facility] [address] [facility] [id number] [address] Jul, [facility] [address] [id number], [place] [address] Jul, [facility] [address] [facility] [id number], [place] [address] Jun, [facility] [address] [facility] [id number], [place] [address] Jun, [facility] [address] [facility] [id number], [place] [address] Jun, [facility] [address] [facility] [id number], [place] [address] Jun, [facility] [address] [facility] [id number], [place] [address] Jun, [facility] [address] [facility] [id number], [place] [address] Jun, [facility] [address] [facility] [id number], [place] [address] Apr, [facility] [address] [facility] [id number], [place] [address] Apr, [facility] [address] [facility] [id number], [place] [address] Feb, [facility] [address] [facility] [id number][place] [address] January, [facility] [address] [facility] [id number][place] [address] Dec, IMMUNIZATIONS No Known Immunizations SOCIAL HISTORY Never Assessed REASON FOR VISIT f/u PLAN OF CARE Activity Details Follow Up 2 Weeks Reason:depression VITAL SIGNS MEDICATIONS Unknown Medications RESULTS No Results PROCEDURES Procedure Date Ordered Result Body Site [facility] VISIT MENTAL HEALTH ESTAB PT Jul 17, 2018 Psychotherapy, patient &/family, 45 minutes, established patient Jul 17, 2018 INSTRUCTIONS MEDICATIONS ADMINISTERED No Known Medications MEDICAL [...] 2009 Surgical History colonoscopy 2009 ([facility]), 2013 ([facility]) Surgical History heart cath: CAD w/ PTCA [...] History inability to urinate 09/16/15 Hospitalization History [facility] early Hospitalization History hyperkalemia 10/2017 Hospitalization History fluid in lung
--- OUTSIDE RECORDS SUMMARY | 2018-08-08 13:35 | XMS REPORT ---
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 Name Role Phone ROSELINE LUIS Unavailable PROBLEMS Type Condition ICD9-CM Code FBO28-VS Code Onset Dates Condition Status SNOMED Code Problem Chronic lymphocytic leukemia C91.10 Active 96012103 Problem Eye exam abnormal R93.8 Active 351374505 Problem Lymphocytosis D72.820 Active 57529045 Problem Eustachian tube dysfunction, unspecified laterality H69.80 Active 95950408 Problem Dysuria R30.0 Active 33500773 Problem Cough R05 Active 08081013 Problem Polyneuropathy associated with underlying disease G63 Active 808953908 Problem Hypokalemia E87.6 Active 13491330 Problem Bilateral primary osteoarthritis of knee M17.0 Active 341648491 Problem Benign prostatic hyperplasia with lower urinary tract symptoms, unspecified morphology N40.1 Active 523950165 Problem Retinal edema H35.81 Active 4878072 Problem 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 Active 128130477 Problem Anemia of chronic illness D63.8 Active 212223320 Problem Other chronic pain G89.29 Active 08619736 Problem Other iron deficiency anemia D50.8 Active 38722206 Problem Leukocytosis D72.829 Active 014590601 Problem Chronic pain G89.29 Active 30549034 Problem DM neuro manif type II E11.49 Active 20258039 Problem Bipolar disorder, in partial remission, most recent episode depressed F31.75 Active 91140099 Problem Falling R29.6 Active 160610581 Problem Primary osteoarthritis of right knee M17.11 Active 905005668893620 Problem Pure hypercholesterolemia E78.00 Active 512171971 Problem Bipolar I disorder, most recent episode (or current) mixed, moderate F31.62 Active 07661461 Problem Insomnia, unspecified type G47.00 Active 381012531 Problem Diabetes E11.9 Active 43033082 Problem Reactive airway disease J45.909 Active 349615654592 Problem Essential hypertension I10 Active 81959957 Problem Diabetic polyneuropathy associated with type 2 diabetes mellitus E11.42 Active 41248822 Problem Anxiety F41.9 Active 86946625 Problem Morbid obesity E66.01 Active 435450263 ALLERGIES No Information ENCOUNTERS Encounter Location Date Diagnosis [place] [place] [id number] [place] [address] 43281- 7088 Jun, [facility] [address] [address]- 7825 Jun, [place] [address] 94372- 8896 Jun, [place] [address] 53810- 1544 Jun, [place] [address] 77603- 8886 Jun, Forgetfulness R68.89 ; Pre-syncope R55 ; Localized edema R60.0 ; Other iron deficiency anemia D50.8 and BMI 50.0-59.9, adult Z68.43 [facility] [place] [id number] [place] [address] 24873- 3336 Jun, Chronic pain G89.29 [facility] [place] [id number] [place] [address] 40293- 7431 Jun, Chronic pain G89.29 [place] [address] 50875- 9765 Jun, Bipolar I disorder, most recent episode (or current) mixed, moderate F31.62 [facility] [id number] [place] [address] 59172- 0668 May, Chronic pain G89.29 [facility] [place] [id number] [place] [address] 69440- 7308 Apr, [place] [place] [id number] [place] [address] 42310- 0329 Apr, Chronic pain G89.29 [facility] [address], [place] [address] 6771 Apr, Primary osteoarthritis of right knee M17.11 [facility] [id number] [place] [address] 02856- 8448 Mar, [facility] [id number] [place] [address] 37148- 5724 Mar, BMI 50.0-59.9, adult Z68.43 and Bipolar disorder, in partial remission, most recent episode depressed F31.75 [place] [id number] [place] [address] 54033- 8579 Mar, Diabetes E11.9 ; Pure hypercholesterolemia E78.00 ; Essential hypertension I10 ; Nausea with vomiting, unspecified R11.2 and Headache, unspecified headache type R51 [place] [id number] [place] [address] 37735- 7755 Mar, Bipolar I disorder, most recent episode (or current) mixed, moderate F31.62 [facility] [id number] [place] [address] 67908- 2986 Mar, Bipolar I disorder, most recent episode (or current) mixed, moderate F31.62 [facility] [id number] [place] [address] 00134- 2689 Mar, Chronic pain G89.29 [place] [id number] [place] [address] 44420- 2665 Mar, Bipolar I disorder, most recent episode (or current) mixed, moderate F31.62 [facility] [id number] [place] [address] 04038- 6738 Feb, Bipolar I disorder, most recent episode (or current) mixed, moderate F31.62 [place] [id number] [place] [address] 65727- 4082 Feb, Chronic pain G89.29 [place] [id number] [place] [address] 70614- 2158 Feb, Decubitus ulcer of right foot, stage 3 L89.893 and BMI 50.0- 59.9, adult Z68.43 [facility] [id number] [place] [address] 01731- 6223 Feb, Bipolar I disorder, most recent episode (or current) mixed, moderate F31.62 [facility] [place] [id number] [place] [address] 30148- 4735 Feb, [place] [id number] [place] [address] 68895- 2073 January, [facility] [place] [id number] [place] [address] 89461- 1058 January, Chronic pain G89.29 [facility] [id number] [place] [address] 38074- 2709 January, Bipolar I disorder, most recent episode (or current) mixed, moderate F31.62 [facility] [id number] [place] [address] 21384- 7167 January, Bipolar I disorder, most recent episode (or current) mixed, moderate F31.62 [facility] [place] [id number] [place] [address] 99342- 1056 Dec, Bipolar I disorder, most recent episode (or current) mixed, moderate F31.62 and BMI 50.0-59.9, adult Z68.43 [facility] [address] [place] [address] 83706- 9653 Dec, Bipolar I disorder, most recent episode (or current) mixed, moderate F31.62 [facility] [place] [id number] [place] [address] 42590- 8882 Dec, Chronic pain G89.29 [facility] [place] [id number] [place] [address] 02304- 4118 Dec, DM neuro manif type II E11.49 ; Right flank pain R10.9 ; 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 ; Encounter for medication monitoring Z51.81 and BMI 50.0-59.9, adult Z68.43 [place] [address] 19841- 8750 Dec, Bipolar I disorder, most recent episode (or current) mixed, moderate F31.62 [facility] [id number] [place] [address] 81334- 1437 Nov, Bipolar I disorder, most recent episode (or current) mixed, moderate F31.62 [place] [id number] [place] [address] 18031- 3219 Nov, Chronic pain G89.29 [place] [id number] [place] [address] 93532- 7078 Nov, Bipolar I disorder, most recent episode (or current) mixed, moderate F31.62 [place] [address] 44904- 5186 Nov, Hypokalemia E87.6 [place] [address] 98262- 4956 Nov, Bipolar I disorder, most recent episode (or current) mixed, moderate F31.62 [facility] [id number] [place] [address] 97798- 6463 Oct, Chronic pain G89.29 [facility] [id number] [place] [address] 41490- 2193 Oct, BMI 50.0-59.9, adult Z68.43 and Bipolar I disorder, most recent episode (or current) mixed, moderate F31.62 [place] [id number] [place] [address] 57541- 1897 Oct, Bipolar I disorder, most recent episode (or current) mixed, moderate F31.62 [place] [id number] [place] [address] 10651- 1055 Oct, [facility] [id number] [place] [address] 42127- 8701 Oct, Hypokalemia E87.6 [facility] [address] 71661- 7300 Oct, DM neuro manif type II E11.49 [facility] [id number] [place] [address] 93139- 0982 Oct, Bipolar I disorder, most recent episode (or current) mixed, moderate F31.62 [place] [id number] [place] [address] 32199- 9579 Oct, Bipolar I disorder, most recent episode (or current) mixed, moderate F31.62 [place] [id number] [place] [address] 38462- 2785 Oct, Hyperkalemia E87.5 ; Falling R29.6 ; BMI 50.0-59.9, adult Z68.43 and Acute left ankle pain M25.572 [place] [address] 50211- 1198 Oct, DM neuro manif type II E11.49 [place] [id number] [place] [address] 51671- 6264 Oct, [place] [id number] [place] [address] 23592- 2543 Sep, Chronic pain G89.29 [place] [id number] [place] [address] 56829- 8641 Sep, [place] [address] 96112- 8575 Sep, Bilateral primary osteoarthritis of knee M17.0 [place] [id number] [place] [address] 57388- 9978 Sep, Generalized edema R60.1 [place] [address] 74617- 4497 Sep, Bipolar I disorder, most recent episode (or current) mixed, moderate F31.62 [place] [id number] [place] [address] 61471- 9537 15 Sep, 2017 Hypoxia R09.02 ; Other hypervolemia E87.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 ; Anemia of chronic illness D63.8 and BMI 50.0- 59.9, adult Z68.43 [place] [address] 02349- 1233 Sep, [address] 31136- 9156 Sep, Bipolar I disorder, most recent episode (or current) mixed, moderate F31.[address] 82309- 9270 Aug, Chronic pain G89.29 [place] [address] 68234- 7342 Aug, Generalized edema R60.[address] 99068- 8645 Aug, [place] [id number] [place] [address] 89381- 6073 Aug, [place] [address] 076567- 8455 14 Aug, 2017 Bipolar I disorder, most recent episode (or current) mixed, moderate F31.[address] 51932- 0297 07 Aug, 2017 Bipolar I disorder, most recent episode (or current) mixed, moderate F31.62 [place] [id number] [place] [address] 97916- 5314 04 Aug, 2017 Chronic pain G89.29 [facility] [address], [place] [address]- 3118 Jul, Bipolar I disorder, most recent episode (or current) mixed, moderate F31.62 [facility] [id number] [place] [address] 32109- 7823 Jul, Bipolar I disorder, most recent episode (or current) mixed, moderate F31.62 and BMI 60.0-69.9, adult Z68.44 [place] [id number] [place] [address] 62897- 5722 Jul, Bipolar I disorder, most recent episode (or current) mixed, moderate F31.62 [place] [id number] [place] [address] 32880- 9811 Jul, Chronic pain G89.29 [place] [id number] [place] [address] 78427- 0951 Jul, Bipolar I disorder, most recent episode (or current) mixed, moderate F31.62 [place] [id number] [place] [address] 76947- 7054 Jun, Polyneuropathy associated with underlying disease G63 and Diabetes E11.9 [place] [id number] [place] [address] 99729- 1658 Jun, Bipolar I disorder, most recent episode (or current) mixed, moderate F31.62 [place] [id number] [place] [address] 05713- 2922 Jun, Chronic pain G89.29 [place] [id number] [place] [address] 82730- 2804 May, Bipolar I disorder, most recent episode (or current) mixed, moderate F31.62 [place] [id number] [place] [address] 73715- 3456 May, Bipolar I disorder, most recent episode (or current) mixed, moderate F31.62 [place] [id number] [place] [address] 23607- 6480 20 May, 2017 Diabetic polyneuropathy associated with type 2 diabetes mellitus E11.42 [facility] [id number] [place] [address] 967880- 1107 18 May, 2017 Bipolar I disorder, most recent episode (or current) mixed, moderate F31.62 [facility] [id number] [place] [address] 66384- 2608 13 May, 2017 Bipolar I disorder, most recent episode (or current) mixed, moderate F31.62 [facility] [id number] [place] [address] 85643- 0618 12 May, 2017 Chronic pain G89.29 [facility] [id number] [place] [address] 41931- 3641 30 Apr, 2017 Bipolar I disorder, most recent episode (or current) mixed, moderate F31.62 [facility] [id number] [place] [address] 46022- 8944 Apr, [facility] [id number] [place] [address] 01895- 3775 Apr, Chronic pain G89.29 and DM neuro manif type II E11.49 [facility] [id number] [place] [address] 85377- 6314 Apr, [facility] [id number] [place] [address] 39187- 1750 Apr, Bipolar I disorder, most recent episode (or current) mixed, moderate F31.62 [facility] [address] [place] [address] 13718- 4675 14 Apr, 2017 Chronic pain G89.29 [facility] [id number] [place] [address] 70244- 1047 Apr, Iliotibial band syndrome, left M76.32 [facility] [address] [place] [address] 74086- 0180 Apr, Bipolar I disorder, most recent episode (or current) mixed, moderate F31.62 [facility] [address], [place] [address]- 0638 Mar, Bipolar I disorder, most recent episode (or current) mixed, moderate F31.62 [facility] [address] [place] [address] 66684- 3105 Mar, Bipolar I disorder, most recent episode (or current) mixed, moderate F31.62 [facility] [id number] [place] [address] 58096- 4023 Mar, [facility] [id number] [place] [address] 22550- 4954 Mar, Bipolar I disorder, most recent episode (or current) mixed, moderate F31.62 [facility] [id number] [place] [address] 41516- 6462 Mar, Chronic pain G89.29 [facility] [id number] [place] [address] 44796- 0651 Mar, Bipolar I disorder, most recent episode (or current) mixed, moderate F31.62 [facility] [id number] [place] [address] 42033- 1530 Mar, Bipolar I disorder, most recent episode (or current) mixed, moderate F31.62 [facility] [address] [place] [address] 96866- 1740 Mar, Acute pain of left knee M25.562 ; Left hip pain M25.552 ; Generalized edema R60.1 and Tongue swelling R22.0 [facility] [id number] [place] [address] 55573- 7797 Mar, [place] [address] 99289- 5861 Feb, Chronic pain G89.29 [facility] [id number] [place] [address] 78451- 1899 Feb, Diabetes E11.9 [place] [id number], [place] [address]- 1627 January, Chronic pain G89.29 [facility] [id number] [place] [address] 70758- 7265 January, [facility] [address] [place] [address] 07245- 1342 January, Bipolar I disorder, most recent episode (or current) mixed, moderate F31.62 [facility] [id number] [place] [address] 32935- 8629 Dec, Bipolar I disorder, most recent episode (or current) mixed, moderate F31.62 [facility] [id number] [place] [address] 31093- 4962 Dec, Chronic pain G89.29 [place] [id number] [place] [address] 21233- 9110 Dec, Bipolar I disorder, most recent episode (or current) mixed, moderate F31.62 [facility] [address] [place] [address] 62959- 0057 Dec, Diabetes E11.9 ; Essential hypertension I10 ; Chronic pain G89.29 and Morbid obesity E66.01 [place] [address] [place] [address] 05786- 0370 Dec, [facility] [id number] [place] [address] 66882- 8754 Dec, Bipolar I disorder, most recent episode (or current) mixed, moderate F31.62 [facility] [address], [place] [address]- 1018 Dec, Bipolar I disorder, most recent episode (or current) mixed, moderate F31.62 [facility] [address] [place] [address] 13273- 2726 Nov, Chronic pain G89.29 [facility] [id number] [place] [address] 81914- 2852 Nov, Bipolar I disorder, most recent episode (or current) mixed, moderate F31.62 [facility] [address], [place] [address]- 4206 Nov, [facility] [address], [place] [address]- 1716 Nov, Bipolar I disorder, most recent episode (or current) mixed, moderate F31.62 [facility] [id number] [place] [address] 42724- 5904 Nov, Bipolar I disorder, most recent episode (or current) mixed, moderate F31.62 [facility] [address] [place] [address] 35833- 2309 Nov, [facility] [id number] [place] [address] 26311- 4749 Nov, [facility] [id number] [place] [address] 56899- 8916 Nov, [facility] [id number] [place] [address] 63847- 8521 Oct, Chronic pain G89.29 [facility] [address] [place] [address] 03572- 3094 Oct, Bipolar I disorder, most recent episode (or current) mixed, moderate F31.62 [facility] [address], [place] [address]- 8669 Oct, [facility] [address] [place] [address] 91668- 8179 Oct, Chronic pain G89.29 ; Diabetes E11.9 ; Anxiety F41.9 and 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 [facility] [address], [place] [address]- 0115 Oct, [facility] [id number] [place] [address] 09167- 5012 Oct, Diabetes E11.9 [facility] [id number] [place] [address] 215909- 8746 Oct, Bipolar I disorder, most recent episode (or current) mixed, moderate F31.62 [facility] [id number] [place] [address] 17016- 7486 Sep, Chronic pain G89.29 [facility] [id number] [place] [address] 02010- 1346 Sep, Chronic pain G89.29 [facility] [id number] [place] [address] 916223- 0756 Aug, Chronic pain G89.29 [facility] [id number] [place] [address] 50295- 1446 Jul, [facility] [id number] [place] [address] 30074- 8053 Jul, Diabetes E11.9 [facility] [id number] [place] [address] 95849- 9287 Jul, Chronic pain G89.29 [facility] [id number] [place] [address] 65990- 1696 Jul, Bipolar I disorder, most recent episode (or current) mixed, moderate F31.62 [facility] [address] [place] [address] 19979- 0829 Jun, Bipolar I disorder, most recent episode (or current) mixed, moderate F31.62 [facility] [id number] [place] [address] 66031- 1076 Jun, [facility] [id number] [place] [address] 23458- 0676 Jun, Bipolar I disorder, most recent episode (or current) mixed, moderate F31.62 [facility] [id number] [place] [address] 64688- 3967 May, Insomnia, unspecified type G47.00 [facility] [id number] [place] [address] 43411- 1373 22 May, 2016 Bipolar I disorder, most recent episode (or current) mixed, moderate F31.62 [facility] [id number] [place] [address] 13943- 5037 14 May, 2016 [facility] [address] 26545- 5295 May, Bipolar I disorder, most recent episode (or current) mixed, moderate F31.62 [place] [id number] [place] [address] 28157- 4788 May, Diabetes E11.9 and Essential hypertension I10 [facility] [id number] [place] [address] 20621- 8374 Apr, Chronic pain G89.29 [place] [id number] [place] [address] 84921- 9034 Apr, Bipolar I disorder, most recent episode (or current) mixed, moderate F31.62 [place] [id number] [place] [address] 25144- 0437 Apr, [facility] [id number] [place] [address] 99652- 0283 Apr, [facility] [id number] [place] [address] 57903- 5482 Mar, Chronic pain G89.29 ; Headache, unspecified headache type R51 ; Neuropathy G62.9 ; Pain of right hip joint M25.551 and Essential hypertension I10 [facility] [id number] [place] [address] 72638- [phone] Mar, Chronic pain G89.29 [facility] [id number] [place] [address] [phone]- [phone] Mar, Bipolar I disorder, most recent episode (or current) mixed, moderate F31.62 [facility] [id number] [place] [address] 15511- 2106 Feb, Bipolar I disorder, most recent episode (or current) mixed, moderate F31.62 and Insomnia, unspecified type G47.00 [facility] [id number] [place] [address] 36562- 3706 Feb, Chronic pain G89.29 [facility] [id number] [place] [address] 58596- 2477 Feb, Bipolar I disorder, most recent episode (or current) mixed, moderate F31.62 [facility] [id number] [place] [address] 44056- [phone] January, Bipolar I disorder, most recent episode (or current) mixed, moderate F31.62 [facility] [id number] [place] [address] 85898- 8867 January, Chronic pain G89.29 [facility] [id number] [place] [address] [phone]- [phone] January, Chronic pain G89.29 and Essential hypertension I10 [facility] [id number] [place] [address] 18943- [phone] January, Bipolar I disorder, most recent episode (or current) mixed, moderate F31.62 [facility] [id number] [place] [address] [phone] Dec, [facility] [id number] [place] [address] [phone]- [phone] Dec, [facility] [id number] [place] [address] 36171- [phone] Dec, [facility] [address] [id number] [place] [address] 67564- 0840 Dec, [facility] [id number] [place] [address] 68874- 4551 Nov, Reactive airway disease J45.909 [facility] [id number] [address] 6809 Nov, [place] [id number] [place] [address] 66229- 1675 Nov, [place] [id number] [place] [address] 29812- 1307 30 Nov, 2015 [address] [address] 20007- 3909 Nov, [place] [id number] [place] [address] 34236- 4591 Nov, Onychomycosis B35.1 ; Hammertoe M20.40 ; [place] or callus L84 and DM neuro manif type II E11.49 [place] [id number] [place] [address] 20237- 4762 Nov, Chronic pain G89.29 ; Leukocytosis D72.829 and Diabetes E11.9 [place] [id number] [place] [address] 25243- 8248 Nov, [place] [id number] [place] [address] 38413- 8236 Oct, Bronchitis J40 [place] [id number] [place] [address] 11956- 1855 Oct, [place] [id number] [place] [address] 72298- 6978 Oct, [place] [id number] [place] [address] 18934- 4424 Oct, Mastoiditis, unspecified laterality H70.90 and Type 2 diabetes mellitus with complication E11.8 [place] [id number] [place] [address] 10899- 1360 Sep, [place] [id number] [place] [address] 47826- 4817 Sep, Dysuria R30.0 ; Cough R05 ; Benign prostatic hyperplasia with lower urinary tract symptoms, unspecified morphology N40.1 ; Hypokalemia E87.6 and Eustachian tube dysfunction, unspecified laterality H69.80 [facility] [id number] [place] [address] 81684- 7638 Sep, Moderate mixed bipolar I disorder F31.62 [facility] [id number] [place] [address] 45555- 3694 Sep, Hypokalemia E87.6 [facility] [address] 42160- 8061 Sep, [facility] [address] 63442- 0914 Sep, Upper respiratory tract infection, unspecified type J06.9 [facility] [id number] [place] [address] 48443- 2539 Aug, [facility] [id number] [place] [address] 88834- 3836 Aug, Dysuria R30.0 [facility] [id number] [place] [address] 80980- 0795 Aug, [facility] [id number] [place] [address] 98051- 0265 Jul, [facility] [id number] [place] [address] 49515- 2108 Jul, [facility] [id number] [place] [address] 97302- 7794 Jul, [facility] [id number] [place] [address] 43913- 8768 Jul, [facility] [id number] [place] [address] 15568- 3780 Jun, [facility] [id number] [place] [address] 50135- 6647 Jun, [facility] [address] [place] [address]- 0543 Jun, [facility] [id number] [place] [address] 39862- 1501 May, [facility] [id number] [place] [address] 25017- 1172 May, Bipolar I disorder, most recent episode (or current) mixed, moderate 296.62 [facility] [id number] [place] [address] 87089- 2365 May, [facility] [id number] [place] [address] 79762- 7855 May, Bipolar I disorder, most recent episode (or current) mixed, moderate 296.62 and Major depressive disorder, recurrent episode, severe, specified as with psychotic behavior 296.34 [facility] [id number] [place] [address] 39662- 7969 May, Bipolar I disorder, most recent episode (or current) mixed, moderate 296.62 [facility] [id number] [place] [address] 66318- 5149 May, [facility] [id number] [place] [address] 98998- 3831 Apr, [facility] [id number] [place] [address] 11234- 0578 Apr, [facility] [id number] [place] [address] 40990- 2421 Apr, Unspecified disorder of kidney and ureter 593.9 and Diabetes mellitus type 2, uncontrolled 250.02 [facility] [id number] [place] [address] 00308- 1820 Apr, [facility] [id number] [place] [address] 36087- 6534 Apr, [facility] [address] [address]- 0825 Apr, [facility] [address], [place] [address]- 4855 Apr, [facility] [id number] [place] [address] 85145- 6717 Apr, Diabetes mellitus type II, uncontrolled 250.02 [facility] [id number] [address]- 2452 Apr, [facility] [id number] [place] [address] 16960- 3001 Mar, [facility] [id number] [place] [address] 34324- 4812 Mar, [facility] [id number] [place] [address] 92932- 0388 Mar, [facility] [id number] [place] [address] 43857- 3432 Mar, Major depressive disorder, recurrent episode, severe, specified as with psychotic behavior 296.34 and Bipolar I disorder, most recent episode (or current) mixed, moderate 296.62 [facility] [id number] [place] [address] 39131- 0450 Mar, Diabetes 250.00 ; Anuria 788.5 ; Nausea and vomiting 787.01 and Diarrhea 787.91 [facility] [address] [address]- 3305 Mar, Diabetes 250.00 [facility] [id number] [place] [address] 73996- 9382 Mar, [facility] [address], [place] [address]- 2021 Mar, Diabetes 250.00 [facility] [id number] [place] [address] 49380- 0879 Mar, [facility] [id number] [place] [address] 60000- 2416 Mar, [facility] [id number] [place] [address] 91669- 5763 Mar, [facility] [id number] [place] [address] 41648- 8011 Mar, [facility] [id number] [place] [address] 12986- 3409 Mar, Bipolar I disorder, most recent episode (or current) mixed, moderate 296.62 and Major depressive disorder, recurrent episode, severe, specified as with psychotic behavior 296.34 [place] [id number] [place] [address] 53528- 1374 Mar, Magnesium deficiency 275.2 ; Hypokalemia 276.8 ; Nausea & vomiting 787.01 and Diabetes mellitus type 2, uncontrolled 250.02 [place] [id number] [place] [address] 96468- 8439 Feb, [place] [address] 96180- 1505 Feb, Bipolar I disorder, most recent episode (or current) mixed, moderate 296.62 [place] [id number] [place] [address] 05159- 3392 Feb, Nausea and vomiting 787.01 ; Left elbow pain 719.42 ; Anuria 788.5 and Diabetes 250.00 [place] [id number] [place] [address] 72003- 5973 Feb, [facility] [id number] [place] [address] 51060- 1789 Feb, Hypopotassemia 276.8 and Hypokalemia 276.8 [place] [id number] [place] [address] 56204- 0812 Feb, Hypopotassemia 276.8 and Hypokalemia 276.8 [place] [id number] [place] [address] 61472- 9288 Feb, Seborrheic keratoses 702.19 [place] [address] [place] [address]- 4672 Feb, Hypopotassemia 276.8 and Low magnesium levels 275.2 [facility] [id number] [place] [address] 50792- 9174 January, [facility] [id number] [place] [address] 36792- 5602 January, [facility] [id number] [place] [address] 48420- 8373 January, [facility] [id number] [place] [address] 28656- 8181 January, Scalp lesion 709.9 [facility] [id number] [place] [address] 08112- 3926 January, [facility] [id number] [place] [address] 80962- 7609 Dec, Tear of medial cartilage or meniscus of knee, current 836.0 and 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 [facility] [id number] [place] [address] 23940- 0680 Dec, [facility] [id number] [place] [address] 30267- 4883 Dec, [facility] [id number] [place] [address] 53344- 2810 Dec, Squamous cell carcinoma, 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 [facility] [id number] [place] [address] 96184- 2867 Dec, [facility] [id number] [place] [address] 79012- 9124 Dec, [facility] [id number] [place] [address] 36397- 0830 Nov, [facility] [id number] [address]- 4793 Nov, [facility] [id number] [place] [address]- 1865 Nov, 2014 [facility] [place] [facility] [address] [id number] [place] [address]- 0430 Nov, [facility] [place] [facility] [address] [id number] [place] [address]- 6389 Nov, 2014 [facility] [place] [facility] [address] [facility] [id number] [place] [address]- 6570 Nov, 2014 [facility] [place] [facility] [address] [id number] [place] [address]- 3793 Nov, 2014 [facility] [place] [facility] [address] [id number] [place] [address]- 2029 Nov, [facility] [place] [facility] [address] [facility] [id number] [place] [address]- 8708 Nov, 2014 [facility] [place] [facility] [address] [facility] [id number] [place] [address]- 2720 Nov, 2014 [facility] [place] [facility] [address] [facility] [id number] [place] [address]- 0579 Nov, [facility] [place] [facility] [address] [facility] [id number] [place] [address]- 4589 Nov, 2014 [facility] [place] [facility] [address] [facility] [id number] [place] [address]- 1317 Oct, 2014 [facility] [place] [facility] [address] [facility] [id number] [place] [address]- 3829 Oct, 2014 [facility] [place] [facility] [address] [facility] [id number] [place] [address]- 8497 Oct, 2014 [facility] [place] [facility] [address] [id number] [place] [address]- 9843 Oct, 2014 [facility] [place] [facility] [address] [facility] [id number] [place] [address]- 5041 Oct, 2014 [facility] [place] [facility] [address] [facility] [id number] [place] [address]- 4463 Oct, [facility] [place] [facility] [address] [id number] [place] [address]- 8735 Oct, [facility] [place] [facility] [address] [id number] [place] [address]- 7006 Oct, [facility] [place] [facility] [address] [id number] [place] [address]- 7561 Oct, [facility] [place] [facility] [address] [id number] [place] [address]- 9497 Sep, [facility] [place] [facility] [address] [id number] [place] [address]- 4623 Sep, [facility] [place] [facility] [address] [id number] [place] [address]- 8597 Sep, [facility] [place] [facility] [address] [id number] [place] [address]- 0162 Sep, [facility] [place] [facility] [address] [id number] [place] [address]- 4036 Sep, [facility] [place] [facility] [address] [id number] [place] [address]- 4409 Sep, [facility] [place] [facility] [address] [id number] [place] [address]- 6724 Sep, [facility] [place] [facility] [address] [id number], [place] [address]- 6214 Sep, [facility] [place] [facility] [address] [id number], [place] [address]- 1300 Sep, [facility] [place] [facility] [address] [id number] [place] [address]- 2779 Sep, [facility] [place] [facility] [address] [id number], [place] [address]- 5737 Sep, [facility] [place] [facility] [address] [id number] [place] [address]- 7778 Sep, [facility] [place] [facility] [address] [id number] [place] [address]- 6196 07 Sep, 2014 [facility] [place] [facility] [address] [id number] [place] [address]- 5703 Sep, [facility] [place] [facility] [address] [id number] [place] [address]- 4072 Sep, [facility] [place] [facility] [address] [id number] [place] [address]- 6010 Sep, [facility] [address] [id number] [place] [address]- 0924 Aug, [facility] [place] [facility] [address] [id number] [place] [address]- 2689 Aug, [facility] [place] [facility] [address] [id number] [place] [address]- 5093 Aug, [facility] [place] [facility] [address] [id number] [place] [address]- 0039 Aug, [facility] [place] [facility] [address] [id number] [place] [address]- 5849 Aug, [facility] [place] [facility] [address] [id number] [place] [address]- 3742 Aug, [facility] [place] [facility] [address] [id number] [place] [address]- 0337 Aug, [facility] [place] [facility] [address] [id number] [place] [address]- 1516 Aug, [facility] [place] [facility] [address] [id number] [place] [address]- 8999 Aug, [facility] [address] [id number] [place] [address]- 7933 Aug, [facility] [address] [id number] [place] [address]- 3669 Aug, [facility] [address] [place] [address] 10 Aug, 2014 [facility] [place] [facility] [address] [id number] [place] [address]- 8727 10 Aug, 2014 [facility] [place] [facility] [address] [id number] [place] [address]- 8106 Aug, [facility] [place] [facility] [address] [id number] [place] [address]- 0366 Aug, [facility] [place] [facility] [address] [id number] [place] [address]- 7426 Aug, [facility] [place] [facility] [address] [id number] [place] [address]- 7630 Aug, [facility] [place] [facility] [address] [id number] [place] [address]- 1668 Aug, [facility] [place] [facility] [address] [id number] [place] [address]- 9173 Aug, [facility] [place] [facility] [address] [id number] [place] [address]- 6041 Aug, [facility] [place] [facility] [address] [id number] [place] [address]- 6581 Aug, [facility] [place] [facility] [address] [id number] [place] [address]- 8402 Aug, [facility] [place] [facility] [address] [id number] [place] [address]- 7759 Aug, [facility] [place] [facility] [address] [id number] [place] [address]- 3163 Aug, [facility] [place] [facility] [address] [id number] [place] [address]- 9157 Aug, [facility] [place] [facility] [address] [id number] [place] [address]- 8298 Aug, [facility] [place] [facility] [address] [id number] [place] [address]- 1059 Aug, [facility] [place] [facility] [address] [id number] [place] [address]- 5875 Aug, [facility] [place] [facility] [address] [id number] [place] 8844 Aug, [facility] [place] [facility] [address] [id number] [place] [address]- 5474 Aug, [facility] [place] [facility] [address] [id number] [place] [address]- 5237 Jul, [facility] [place] [facility] [address] [id number] [place] [address]- 3584 Jul, [facility] [place] [facility] [address] [id number] [place] [address]- 7987 Jul, [facility] [place] [facility] [address] [id number] [place] [address]- 8167 Jul, [facility] [place] [facility] [address] [id number] [place] [address]- 5518 Jul, [facility] [place] [facility] [address] [id number] [place] [address]- 0365 Jul, [facility] [place] [facility] [address] [id number] [place] [address]- 3096 Jul, [facility] [place] [facility] [address] [id number] [place] [address]- 6624 Jul, [facility] [place] [facility] [address] [id number] [place] [address]- 2470 Jul, [facility] [place] [facility] [address] [id number] [place] [address]- 9904 Jul, [facility] [place] [facility] [address] [id number] [place] [address]- 0054 Jun, [facility] [place] [facility] [address] [id number] [place] [address]- 7584 Jun, [facility] [place] [facility] [address] [id number] [place] 1515 Jun, [facility] [place] [facility] [address] [id number], [place] [address]- 1554 16 Jun, 2014 [facility] [place] [facility] [address] [id number] [place] [address]- 1884 15 Jun, 2014 [facility] [place] [facility] [address] [id number] [place] [address]- 6383 15 Jun, 2014 [facility] [place] [facility] [address] [id number] [place] [address]- 8679 05 Jun, 2014 [facility] [place] [facility] [address] [id number] [place] [address]- 6602 05 Jun, 2014 [facility] [place] [facility] [address] [id number] [place] [address]- 6469 Jun, [facility] [place] [facility] [address] [id number] [place] [address]- 7009 Jun, [facility] [place] [facility] [address] [id number] [place] [address]- 7028 29 Sep, 2013 [facility] [place] [facility] [address] [id number] [place] [address]- 5186 29 Sep, 2013 [facility] [place] [facility] [address] [id number] [place] [address]- 6864 26 Sep, 2013 [facility] [place] [facility] [address] [id number] [place] [address]- 0384 26 Sep, 2013 [facility] [place] [facility] [address] [id number] [place] [address]- 3325 17 Sep, 2013 [facility] [place] [facility] [address] [id number], [place] [address]- 2544 17 Sep, 2013 [facility] [place] [facility] [address] [id number] [place] [address]- 8298 15 Sep, 2013 [facility] [place] [facility] [address] [id number], [place] [address]- 2548 15 Sep, 2013 [facility] [place] [facility] [address] [id number], [place] [address]- 0731 15 Sep, 2013 [facility] [place] [facility] [address] [id number] [place] [address]- 9126 15 May, 2013 [facility] [place] [facility] [address] [id number] [place] [address] 2546 10 May, 2013 [facility] [place] [facility] [address] [id number] [place] [address] 2546 10 May, 2013 [facility] [place] [facility] [address] [id number] [place] [address]46 09 May, 2013 [facility] [place] [facility] [address] [id number] [place] [address]46 09 May, 2013 [facility] [place] [facility] [address] [id number] [place] [address] 04 May, 2013 [facility] [place] [facility] [address] [id number] [place] [address] May, 2013 [facility] [place] [facility] [address] [id number] [place] [address] Apr, [facility] [place] [facility] [address] [id number] [place] [address] Apr, [facility] [place] [facility] [address] [id number] [place] [address] Apr, [facility] [place] [facility] [address] [id number] [place] [address] 2547 Apr, [facility] [place] [facility] [address] [id number] [place] [address] Apr, [facility] [place] [facility] [address] [id number] [place] [address] 2540 Apr, [facility] [place] [facility] [address] [id number] [place] [address] 2546 Apr, [facility] [place] [facility] [address] [id number] [place] [address] 2546 Apr, [facility] [place] [facility] [address] [id number] [place] [address] Apr, [facility] [place] [facility] [address] [id number] [place] [address] Apr, [facility] [place] [facility] [address] [id number] [place] [address] Apr, [facility] [place] [facility] [address] [id number] [place] [address] Apr, [facility] [place] [facility] [address] [id number] [place] [address] Apr, [facility] [place] [facility] [address] [id number] [place] [address] Apr, [facility] [place] [facility] [address] [id number] [place] [address] Apr, [facility] [place] [facility] [address] [id number] [place] [address] Mar, [facility] [place] [facility] [address] [id number] [place] [address] Mar, [facility] [place] [facility] [address] [id number] [place] [address] Mar, [facility] [place] [facility] [address] [id number] [place] [address] Mar, [facility] [place] [facility] [address] [id number] [place] [address] Mar, [facility] [place] [facility] [address] [id number] [place] [address] Mar, [facility] [place] [facility] [address] [id number] [place] [address] Mar, [facility] [place] [facility] [address] [id number] [place] [address] Mar, [facility] [place] [facility] [address] [id number] [place] [address] Mar, [facility] [place] [facility] [address] [id number] [place] [address] Mar, 2013 [facility] [place] [facility] [address] [id number] [place] [address] Mar, 2013 [facility] [place] [facility] [address] [id number] [place] [address] Mar, 2013 [facility] [place] [facility] [address] [id number] [place] [address] Mar, 2013 [facility] [place] [facility] [address] [id number] [place] [address] Mar, 2013 [facility] [place] [facility] [address] [id number] [place] [address] Mar, 2013 [facility] [place] [facility] [address] [id number] [place] [address] Mar, 2013 [facility] [place] [facility] [address] [id number] [place] [address] Mar, 2013 [facility] [place] [facility] [address] [id number] [place] [address] Mar, [facility] [place] [facility] [address] [id number] [place] [address] Feb, [facility] [place] [facility] [address] [id number] [place] [address] Feb, [facility] [place] [facility] [address] [id number] [place] [address] Feb, [facility] [place] [facility] [address] [id number] [place] [address] Feb, [facility] [place] [facility] [address] [id number] [place] [address] Feb, [facility] [place] [facility] [address] [id number] [place] [address] Feb, [facility] [place] [facility] [address] [id number] [place] [address] Feb, [facility] [place] [facility] [address] [id number] [place] [address] Feb, [facility] [place] [facility] [address] [id number] [place] [address] Feb, [facility] [place] [facility] [address] [id number] [place] [address] Feb, [facility] [place] [facility] [address] [id number] [place] [address] Feb, [facility] [place] [facility] [address] [id number] [place] [address] Feb, [facility] [place] [facility] [address] [id number] [place] [address] Feb, [facility] [place] [facility] [address] [id number] [place] [address]- [address] Feb, [facility] [place] [facility] [address] [id number] [place] [address] January, [facility] [place] [facility] [address] [id number] [place] [address]- [address] January, [facility] [place] [facility] [address] [id number] [place] [address] January, [facility] [place] [facility] [address] [id number] [place] [address] 2239 January, [facility] [place] [facility] [address] [id number] [place] [address] 6007 January, [facility] [place] [facility] [address] [id number] [place] [address] 1950 January, [facility] [place] [facility] [address] [id number] [place] [address] 6520 January, [facility] [place] [facility] [address] [id number] [place] [address] 4199 January, [facility] [place] [facility] [address] [id number] [place] [address] 0806 January, [facility] [place] [facility] [address] [id number] [place] [address]- 2365 January, [facility] [place] [facility] [address] [id number] [place] [address]- 0378 January, [facility] [place] [facility] [address] [id number] [place] [address]- 4506 January, [facility] [place] [facility] [address] [id number] [place] [address]- 7043 January, [facility] [place] [facility] [address] [id number] [place] [address]- 8418 January, [facility] [place] [facility] [address] [id number] [place] [address]- 7039 Dec, [facility] [place] [facility] [address] [id number] [place] [address]- 5056 Dec, [facility] [place] [facility] [address] [id number] [place] [address]- 9816 Dec, [facility] [place] [facility] [address] [id number] [place] [address]- 5674 Dec, [facility] [place] [facility] [address] [id number] [place] [address]- 3124 Dec, [facility] [place] [facility] [address] [id number] [place] [address]- 9864 Dec, [facility] [place] [facility] [address] [id number] [place] [address]- 4440 Dec, [facility] [place] [facility] [address] [id number] [place] [address]- 4340 Dec, [facility] [place] [facility] [address] [id number] [place] [address]- 2006 Dec, [facility] [place] [facility] [address] [id number] [place] [address]- 5016 Dec, [facility] [place] [facility] [address] [id number] [place] [address]- 9769 Nov, [facility] [place] [facility] [address] [id number] [place] [address]- 0172 Nov, [facility] [place] [facility] [address] [id number] [place] [address]- 3767 Nov, [facility] [place] [facility] [address] [id number] [place] [address]- 5295 Nov, [facility] [place] [facility] [address] [id number] [place] [address]- 8510 Nov, [facility] [place] [facility] [address] [id number] [place] [address]- 3696 Nov, [facility] [place] [facility] [address] [id number] [place] [address]- 8072 Nov, [facility] [place] [facility] [address] [id number] [place] [address]- 5986 Nov, [facility] [place] [facility] [address] [id number] [place] [address]- 5629 Nov, [facility] [place] [facility] [address] [id number] [place] [address]- 0825 Nov, [facility] [place] [facility] [address] [id number] [place] [address]- 8716 Oct, [facility] [place] [facility] [address] [id number] [place] [address]- 1152 Oct, [facility] [place] [facility] [address] [id number] [place] [address]- 1239 Oct, [facility] [place] [facility] [address] [id number] [place] [address]- 2593 Oct, [facility] [place] [facility] [address] [id number] [place] [address]- 3141 Oct, [facility] [place] [facility] [address] [id number] [place] [address]- 2035 Oct, [facility] [place] [facility] [address] [id number] [place] [address]- 5146 Oct, [facility] [place] [facility] [address] [id number] [place] Oct, [facility] [place] [facility] [address] [id number] [place] [address]- 4276 Oct, [facility] [place] [facility] [address] [id number] [place] [address]- 2278 Oct, [facility] [place] [facility] [address] [id number] [place] [address]- 1485 Oct, [facility] [place] [facility] [address] [id number] [place] [address]- 6867 Oct, [facility] [place] [facility] [address] [id number] [place] [address]- 0403 Oct, [facility] [place] [facility] [address] [id number] [place] [address]- 8075 Oct, [facility] [place] [facility] [address] [id number] [place] [address]- 1266 Sep, [facility] [place] [facility] [address] [id number] [place] [address]- 4837 Sep, [facility] [place] [facility] [address] [id number] [place] [address]- 3413 Sep, [facility] [place] [facility] [address] [id number] [place] [address]- 7709 Sep, [facility] [place] [facility] [address] [id number] [place] [address]- 5521 Sep, [facility] [place] [facility] [address] [id number] [place] [address]- 9703 Sep, [facility] [place] [facility] [address] [id number], [place] [address]- 5302 Sep, [facility] [place] [facility] [address] [id number] [place] [address]- 9801 Sep, [facility] [place] [facility] [address] [id number] [place] [address]- 4462 Sep, [facility] [place] [facility] [address] [id number] [place] [address]- 6030 Sep, [facility] [place] [facility] [address] [id number] [place] [address]- 8783 Aug, [facility] [place] [facility] [address] [id number] [place] [address]- 2424 Aug, [facility] [place] [facility] [address] [id number] [place] [address]- 1702 Jul, [facility] [place] [facility] [address] [id number] [place] [address]- 2214 Jul, [facility] [place] [facility] [address] [id number] [place] [address]- 8310 Jul, [facility] [place] [facility] [address] [id number] [place] [address]- 2688 Jul, [facility] [place] [facility] [address] [id number] [place] [address]- 1718 Jul, [facility] [place] [facility] [address] [id number] [place] [address]- 8799 Jul, [facility] [place] [facility] [address] [id number] [place] [address]- 3726 Jul, [facility] [place] [facility] [address] [id number] [place] [address]- 4563 Jul, [facility] [place] [facility] [address] [id number] [place] [address]- 3395 Jul, [facility] [place] [facility] [address] [id number] [place] [address]- 4100 Jul, [facility] [place] [facility] [address] [id number], [place] [address]- 4128 Jul, [facility] [place] [facility] [address] [id number] [place] [address]- 5579 Jul, [facility] [place] [facility] [address] [id number] [address] Jul, [facility] [place] [facility] [address] [facility] [id number], [place] [address]- 4757 Jul, [facility] [place] [facility] [address] [id number], [place] [address]- 8944 Jul, [facility] [place] [facility] [address] [id number] [place] [address]- 5864 Jul, [facility] [place] [facility] [address] [id number], [place] [address]- 2630 Jul, [facility] [place] [facility] [address] [id number], [place] [address]- 9956 Jul, [facility] [place] [facility] [address] [id number], [place] [address]- 4976 Jul, [facility] [place] [facility] [address] [id number], [place] [address]- 6479 Jun, [facility] [place] [facility] [address] [id number], [place] [address]- 4338 Jun, [facility] [place] [facility] [address] [id number], [place] [address]- 1230 Jun, 2012 [facility] [place] [facility] [address] [id number], [place] [address]- 3515 16 Jun, 2013 [facility] [place] [facility] [address] [id number], [place] [address]- 4813 Jun, [facility] [place] [facility] [address] [id number], [place] [address]- 9663 16 Jun, 2013 [facility] [place] [facility] [address] [id number], [place] [address]- 6474 Jun, [facility] [place] [facility] [address] [id number] [place] [address]- 6300 Jun, [facility] [address] [id number] [place] [address]- 6549 Jun, [facility] [place] [facility] [address] [id number] [place] [address]- 6736 Jun, [facility] [address] [id number] [place] [address]- 7942 Jun, [facility] [place] [facility] [address] [id number] [place] [address]- 1953 26 May, 2012 [facility] [address] [id number] [place] [address]- 6237 25 May, 2012 [facility] [address] [id number] [place] [address]- 5547 19 May, 2012 [facility] [place] [facility] [address] [id number] [place] [address]- 6722 17 May, 2012 [facility] [address] [id number] [place] [address]- 1658 11 May, 2013 [facility] [place] [facility] [address] [id number] [place] [address]- 9462 May, [facility] [address] [id number] [place] [address]- 3295 May, [facility] [place] [facility] [address] [id number] [place] [address]- 254 05 May, 2013 [facility] [place] [facility] [address] [id number] [place] [address]- 254 Apr, [facility] [place] [facility] [address] [id number] [place] [address]- 0142 Apr, [facility] [place] [facility] [address] [id number] [place] [address]- 2544 Apr, [facility] [place] [facility] [address] [id number] [place] [address]- 1053 Apr, [facility] [address] [id number] [place] [address]- 1664 Apr, [facility] [place] [facility] [address] [id number] [place] [address]- 7704 Mar, [facility] [place] [facility] [address] [id number] [place] [address]- 1977 Mar, [facility] [place] [facility] [address] [id number] [place] [address]- 0776 Mar, [facility] [place] [facility] [address] [id number] [place] [address]- 2885 Mar, [facility] [place] [facility] [address] [id number] [place] [address]- 9001 Mar, [facility] [place] [facility] [address] [id number] [place] [address]- 7424 Mar, [facility] [place] [facility] [address] [id number] [place] [address]- 9988 Mar, [facility] [place] [facility] [address] [id number] [place] [address]- 1926 Mar, [facility] [place] [facility] [address] [id number] [place] [address]- 2590 Feb, [facility] [place] [facility] [address] [id number] [place] [address]- 0803 Feb, [facility] [place] [facility] [address] [id number], [place] [address]- 4296 January, [facility] [place] [facility] [address] [id number] [place] [address]- 9342 January, [facility] [place] [facility] [address] [id number] [place] [address]- 1408 Dec, [facility] [place] [facility] [address] [id number] [place] [address]- 3733 Dec, [facility] [place] [facility] [address] [id number] [place] [address]- 9472 23 Nov, 2012 [facility] [address] [id number] [place] [address] 2546 Nov, [facility] [address] [id number] [place] [address]- 4286 Nov, [facility] [address] [id number] [place] [address]- 5889 Nov, [facility] [address] [id number] [place] [address]- 1347 27 Oct, 2012 [facility] [address] [id number] [place] [address]- 5726 26 Oct, 2012 [facility] [address] [id number] [place] [address]- 2366 26 Oct, 2012 [facility] [address] [id number] [place] [address]- 1170 26 Oct, 2012 [facility] [address] [id number] [place] [address]- 6526 16 Oct, 2012 [facility] [address] [id number] [place] [address]- 5183 14 Oct, 2012 [facility] [address] [id number] [place] [address]- 8778 08 Oct, 2012 [facility] [address] [id number] [place] [address] 2546 07 Oct, 2012 [facility] [address] [id number] [place] [address] 2549 03 Oct, 2012 [facility] [place] [facility] [address] [id number] [place] [address]- 1764 30 Sep, 2012 [facility] [place] [facility] [address] [id number] [place] [address]- 2548 29 Sep, 2012 [facility] [place] [facility] [address] [id number] [place] [address]- 7846 Sep, [facility] [address] [id number] [place] [address]- 1848 Sep, [facility] [place] [facility] [address] [id number] [place] [address]- 9320 17 Sep, 2012 [facility] [place] [facility] [address] [id number] [place] [address]- 7604 10 Sep, 2012 [facility] [place] [facility] [address] [id number] [place] [address]- 6102 Sep, [facility] [place] [facility] [address] [id number] [place] [address]- 6068 Sep, [facility] [place] [facility] [address] [id number] [place] [address]- 4104 Aug, [facility] [place] [facility] [address] [id number] [place] [address]- 9889 Aug, [facility] [place] [facility] [address] [id number] [place] [address]- 9401 Aug, [facility] [place] [facility] [address] [id number] [place] [address]- 8413 Aug, [facility] [place] [facility] [address] [id number] [place] [address]- 4816 Aug, [facility] [place] [facility] [address] [id number] [place] [address]- 9389 Aug, [facility] [place] [facility] [address] [id number], [place] [address]- 4856 Aug, [facility] [place] [facility] [address] [id number] [place] [address]- 4247 Aug, [facility] [place] [facility] [address] [id number] [place] [address]- 7239 Jul, [facility] [place] [facility] [address] [id number] [place] [address]- 7251 Jul, [facility] [place] [facility] [address] [id number], [place] [address]- 9037 Jul, [facility] [place] [facility] [address] [id number] [place] [address]- 3047 Jul, [facility] [place] [facility] [address] [facility] [id number], [place] [address]- 0397 Jul, [facility] [place] [facility] [address] [facility] [id number] [place] [address]- 2551 Jul, [facility] [place] [facility] [address] [id number], [place] [address]- 1191 Jun, [facility] [place] [facility] [address] [facility] [id number] [place] [address], [place] [address]- 4906 Jun, [facility] [place] [facility] [address] [facility] [id number] [place] [address]- 0608 Jun, [facility] [place] [facility] [id number] [place] [address]- 9055 Jun, [facility] [place] [facility] [address] [facility] [id number], [place] [address]- 6980 Jun, [facility] [place] [facility] [address] [id number] [place] [address]- 9481 Jun, [facility] [place] [facility] [address] [facility] [id number], [place] [address]- 2894 Jun, [facility] [place] [facility] [address] [facility] [id number], [place] [address]- 1038 Jun, [facility] [place] [facility] [address] [facility] [id number], [place] [address]- 3245 10 Jun, 2012 [facility] [place] [facility] [address] [facility] [id number], [place] [address]- 8771 26 May, 2012 [facility] [place] [facility] [address] [facility] [id number], [place] [address]- 2407 24 May, 2012 [facility] [place] [facility] [address] [id number], [place] [address]- 7849 18 May, 2012 [facility] [place] [facility] [address] [id number] [place] [address]- 7597 30 Apr, 2012 [facility] [place] [facility] [address] [id number] [place] [address]- 0284 Apr, [facility] [place] [facility] [address] [id number] [place] [address]- 9614 Apr, [facility] [place] [facility] [address] [id number] [place] [address]- 2695 Apr, [facility] [place] [facility] [address] [id number] [place] [address]- 9623 Apr, [facility] [place] [facility] [address] [id number] [place] [address]- 3194 Apr, [facility] [place] [facility] [address] [id number] [place] [address]- 1213 Mar, [facility] [place] [facility] [address] [id number] [place] [address]- 5629 Mar, [facility] [place] [facility] [address] [id number] [place] [address]- 5799 Mar, [facility] [place] [facility] [address] [id number] [place] [address]- 8131 Mar, [facility] [place] [facility] [address] [id number] [place] [address]- 3111 Feb, [facility] [place] [facility] [address] [id number] [place] [address]- 4747 Feb, [facility] [place] [facility] [address] [id number] [place] [address]- 3177 Feb, [facility] [place] [facility] [address] [id number] [place] [address]- 4469 Feb, [facility] [place] [facility] [address] [id number] [place] [address]- 8436 Feb, [facility] [place] [facility] [address] [id number] [place] [address]- 8536 January, [facility] [address] [id number] [place] [address]- 7211 January, [facility] [place] [facility] [address] [id number] [place] [address]- 6775 January, [facility] [address] [id number] [place] [address]- 3744 January, [facility] [place] [facility] [address] [id number] [place] [address]- 2579 January, [facility] [address] [id number] [place] [address]- 9099 January, [facility] [address] [id number] [place] [address]- 0756 Dec, [facility] [place] [facility] [address] [id number] [place] [address]- 2803 Dec, [facility] [place] [facility] [address] [id number] [place] [address]- 4824 Dec, [facility] [place] [facility] [address] [id number] [place] [address]- 5289 Dec, [facility] [place] [facility] [address] [id number] [place] [address]- 4515 Dec, [facility] [place] [facility] [address] [id number] [place] [address]- 6153 Nov, [facility] [place] [facility] [address] [id number], [place] [address]- 6582 Nov, [facility] [place] [facility] [address] [id number] [place] [address]- 6019 Nov, [facility] [place] [facility] [address] [id number] [place] [address] Nov, [facility] [place] [facility] [address] [id number] [place] [address] Oct, [facility] [place] [facility] [address] [id number] [place] [address] 28 Oct, 2011 [facility] [address] [id number] [place] [address] 24 Oct, 2011 [facility] [place] [facility] [address] [id number] [place] [address]46 13 Oct, 2011 [facility] [address] [id number] [place] [address] 08 Oct, 2011 [facility] [place] [facility] [address] [id number] [place] [address] 2546 Sep, [facility] [address] [id number] [place] [address] Sep, [facility] [place] [facility] [address] [id number] [place] [address] Sep, [facility] [address] [id number] [place] [address] 254 Sep, [facility] [address] [id number] [place] [address] Sep, [facility] [place] [facility] [address] [id number] [place] [address] Sep, [facility] [address] [id number] [place] [address] Aug, [facility] [place] [facility] [address] [id number] [place] [address] 2546 Aug, [facility] [place] [facility] [address] [id number] [place] [address] Aug, [facility] [place] [facility] [address] [id number] [place] [address] 2546 Jul, [facility] [place] [facility] [address] [id number] [place] [address] Jul, [facility] [place] [facility] [address] [id number] [place] [address] 8917 Jul, [facility] [place] [facility] [address] [id number] [place] [address] Jul, [facility] [place] [facility] [address] [id number] [place] [address]60 Jun, [facility] [place] [facility] [address] [id number] [place] [address] Jun, [facility] [place] [facility] [address] [id number] [place] [address] 49[address] Jun, [facility] [place] [facility] [address] [id number] [place] [address] Jun, [facility] [place] [facility] [address] [id number] [place] [address] 8663 Jun, [facility] [place] [facility] [address] [id number] [place] [address]- [address]91 Jun, [facility] [place] [facility] [address] [id number] [place] [address] Mar, [facility] [place] [facility] [address] [id number] [place] [address] 89[address] Dec, [facility] [place] [facility] [address] [id number] [place] [address] Dec, [facility] [place] [facility] [address] [id number] [place] [address] Nov, [facility] [place] [facility] [address] [id number] [place] [address] 9740 16 Nov, 2010 [facility] [place] [facility] [address] [id number] [place] [address] Sep, [facility] [place] [facility] [address] [id number] [place] [address]79 Aug, [facility] [place] [facility] [address] [id number] [place] [address] 29 Aug, 2010 [facility] [place] [facility] [address] [id number] [place] [address]682 29 Aug, 2010 [facility] [address] [id number] [place] [address]186 29 Aug, 2010 [facility] [place] [facility] [address] [id number] [place] [address] 27 Aug, 2010 [facility] [address] [id number] [place] [address]666 14 Aug, 2010 [facility] [place] [facility] [address] [id number] [place] [address] 9056 08 Aug, 2010 [facility] [address] [id number] [place] [address]- [address]46 08 Aug, 2010 [facility] [place] [facility] [address] [id number] [place] [address]- 69[address] 07 Aug, 2010 [facility] [address] [facility] [id number] [place] [address]- [address] 06 Aug, 2010 [facility] [place] [facility] [address] [id number] [place] [address] 06 Aug, 2010 [facility] [address] [id number] [place] [address]- [address] Aug, [facility] [place] [facility] [address] [facility] [id number] [place] [address] 30 Jul, 2010 [facility] [place] [facility] [address] [id number] [place] [address]- [address] 30 Jul, 2010 [facility] [place] [facility] [address] [id number], [place] [address] 2546 30 Jul, 2010 [facility] [place] [facility] [address] [id number], [place] [address] 17 Jul, 2010 [facility] [place] [facility] [address] [id number], [place] [address]36 08 Jul, 2010 [facility] [place] [facility] [address] [facility] [id number], [place] [address] Jul, [facility] [place] [facility] [address] [id number] [place] [address]- 7152 24 Jun, 2010 [facility] [place] [facility] [address] [id number] [place] [address]- 0266 19 Jun, 2010 [facility] [place] [facility] [address] [id number] [place] [address] 2546 19 Jun, 2010 [facility] [place] [facility] [address] [id number] [place] [address] 2546 13 Jun, 2010 [facility] [place] [facility] [address] [id number] [place] [address] 2544 16 Apr, 2010 [facility] [place] [facility] [address] [id number] [place] [address] Mar, [facility] [place] [facility] [address] [id number] [place] [address] Feb, [facility] [place] [facility] [address] [id number] [place] [address] January, [facility] [place] [facility] [address] [id number] [place] [address]- 9312 15 Dec, 2009 [facility] [place] [facility] [address] [id number] [place] [address]- 5281 Nov, [facility] [place] [facility] [address] [id number] [place] [address]- 2364 31 Aug, 2009 [facility] [place] [facility] [address] [id number] [place] [address]- 7648 23 Aug, 2009 [facility] [place] [facility] [address] [id number] [place] [address] 2547 07 Aug, 2009 [facility] [place] [facility] [address] [id number] [place] [address] 2546 12 Jul, 2009 [facility] [place] [facility] [address] [id number] [place] [address] 2546 09 Jul, 2009 [facility] [place] [facility] [address] [id number] [place] [address]- 3939 Jul, [facility] [address] [id number], [place] [address] Jun, [facility] [id number], [place] [address] Jun, [facility] [address] [id number] [place] [address] Jun, [facility] [id number] [place] [address] Jun, [facility] [id number] [place] [address] Jun, [facility] [id number] [place] [address] Jun, [facility] [id number] [place] [address] Apr, [facility] [id number] [place] [address] Apr, [facility] [id number] [place] [address] Feb, [facility] [id number] [place] [address] January, [facility] [id number] [place] [address] Dec, IMMUNIZATIONS No Known Immunizations SOCIAL HISTORY Never Assessed REASON FOR VISIT memory impairment PLAN OF CARE VITAL SIGNS MEDICATIONS Unknown [...] obesity Medical History skin cancer-basal cell R hinduism (removed) Medical History Arthritis Medical History degenerative [...] EGD ([facility]) 2009 Surgical History colonoscopy 2009 ([facility]), 2013 ([facility]) Surgical History heart 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 04/2014 Surgical History carotid US 05/2014 Surgical History resection of skin cancer from Right hinduism Surgical History Biopsy of Lung Bilateral/Left lung lymph node 09/2016 Surgical History Bone Marrow Biopsy Surgical History port in the right chest wall 12/2016 Hospitalization History [facility] low potassium, low magnesium, chest painina 01/2015 Hospitalization History inability to urinate 09/16/15 Hospitalization History [facility] mental health early Hospitalization History hyperkalemia 10/2017 Hospitalization History fluid in lung
--- OUTSIDE RECORDS SUMMARY | 2018-08-08 13:36 | XMS REPORT ---
Author Author NOEMI WASHBURN [facility] Address [address] [place] [address] Care Team Providers Care Credit Or Loans Officer Name Role Phone NOEMI WASHBURN Unavailable PROBLEMS Type Condition ICD9-CM Code CYS27-UQ Code Onset Dates Condition Status SNOMED Code Problem Chronic lymphocytic leukemia C91.10 Active 87925421 Problem Eye exam abnormal R93.8 Active 238068069 Problem Lymphocytosis D72.820 Active 05793220 Problem Eustachian tube dysfunction, unspecified laterality H69.80 Active 14427803 Problem Dysuria R30.0 Active 68579721 Problem Cough R05 Active 59907438 Problem Polyneuropathy associated with underlying disease G63 Active 609725644 Problem Hypokalemia E87.6 Active 73836105 Problem Bilateral primary osteoarthritis of knee M17.0 Active 682088455 Problem Benign prostatic hyperplasia with lower urinary tract symptoms, unspecified morphology N40.1 Active 605360203 Problem Retinal edema H35.81 Active 8919798 Problem 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 Active 429494081 Problem Anemia of chronic illness D63.8 Active 632586376 Problem Other chronic pain G89.29 Active 12520952 Problem Other iron deficiency anemia D50.8 Active 25752672 Problem Leukocytosis D72.829 Active 073237122 Problem Chronic pain G89.29 Active 80015914 Problem DM neuro manif type II E11.49 Active 50440364 Problem Bipolar disorder, in partial remission, most recent episode depressed F31.75 Active 78508295 Problem Falling R29.6 Active 227035561 Problem Primary osteoarthritis of right knee M17.11 Active 393053532631747 Problem Pure hypercholesterolemia E78.00 Active 434419307 Problem Bipolar I disorder, most recent episode (or current) mixed, moderate F31.62 Active 78870255 Problem Insomnia, unspecified type G47.00 Active 721473145 Problem Diabetes E11.9 Active 40690611 Problem Reactive airway disease J45.909 Active 711891763823 Problem Essential hypertension I10 Active 06284353 Problem Diabetic polyneuropathy associated with type 2 diabetes mellitus E11.42 Active 67247238 Problem Anxiety F41.9 Active 78491747 Problem Morbid obesity E66.01 Active 064390001 ALLERGIES No Information ENCOUNTERS Encounter Location Date Diagnosis [facility] [address] [address] Jun, [facility] [address] [address] Jun, [place] [address] [address]- [address] Jun, [place] [address] 6[address]27- 1772 Jun, [place] [address] [address]33- 3[address] Jun, Forgetfulness R68.89 ; Pre-syncope R55 ; Localized edema R60.0 ; Other iron deficiency anemia D50.8 and BMI 50.0-59.9, adult Z68.43 [place] [address] [address]- 98[address] Jun, Chronic pain G89.29 [place] [address] [place] [id number] [place] [address] 62224- 3296 Jun, Chronic pain G89.29 [place] [address] [place] [id number] [place] [address] 57014- 2315 Jun, Bipolar I disorder, most recent episode (or current) mixed, moderate F31.62 [place] [address] 85188- 8152 May, Chronic pain G89.29 [facility] [address] [place] [id number] [place] [address] 09296- 2861 Apr, [place] [address] 40438- 8867 Apr, Chronic pain G89.29 [facility] [address] [place] [id number] [place] [address] 21764- 0989 Apr, Primary osteoarthritis of right knee M17.11 [facility] [address] [place] [id number] [place] [address] 37580- 7484 Mar, [facility] [address] [place] [id number] [place] [address] 13475- 5854 Mar, BMI 50.0-59.9, adult Z68.43 and Bipolar disorder, in partial remission, most recent episode depressed F31.75 [place] [address] 7[address]- 5394 Mar, Diabetes E11.9 ; Pure hypercholesterolemia E78.00 ; Essential hypertension I10 ; Nausea with vomiting, unspecified R11.2 and Headache, unspecified headache type R51 [place] [address] 54288- 7683 Mar, Bipolar I disorder, most recent episode (or current) mixed, moderate F31.62 [place] [address] [place] [id number] [place] [address] 38516- 6339 Mar, Bipolar I disorder, most recent episode (or current) mixed, moderate F31.62 [place] [address] [place] [id number] [place] [address] 19466- 5726 Mar, Chronic pain G89.29 [place] [address] [place] [id number] [place] [address] 51737- 1111 Mar, Bipolar I disorder, most recent episode (or current) mixed, moderate F31.62 [place] [address] [place] [id number] [place] [address] 00463- 5922 Feb, Bipolar I disorder, most recent episode (or current) mixed, moderate F31.62 [place] [address] [place] [id number] [place] [address] 11146- 8116 Feb, Chronic pain G89.29 [place] [address] [place] [address] Feb, Decubitus ulcer of right foot, stage 3 L89.893 and BMI 50.0- 59.9, adult Z68.43 [facility] [address] [place] [id number] [place] [address] 71675- 1701 Feb, Bipolar I disorder, most recent episode (or current) mixed, moderate F31.62 [facility] [address] [place] [id number] [place] [address] 30290- 1263 Feb, [place] [address] [place] [id number] [place] [address] 97915- 0433 January, [place] [address] [place] [id number] [place] [address] 83779- 8182 January, Chronic pain G89.29 [place] [address] [place] [id number] [place] [address] 75196- 4427 January, Bipolar I disorder, most recent episode (or current) mixed, moderate F31.62 [place] [address] [place] [id number] [place] [address] 46670- 7383 January, Bipolar I disorder, most recent episode (or current) mixed, moderate F31.62 [place] [id number] [place] [address] 73261- 2257 Dec, Bipolar I disorder, most recent episode (or current) mixed, moderate F31.62 and BMI 50.0-59.9, adult Z68.43 [facility] [address] [place] [id number] [place] [address] 13559- 9941 Dec, Bipolar I disorder, most recent episode (or current) mixed, moderate F31.62 [place] [address] [place] [id number] [place] [address] 26675- 7009 Dec, Chronic pain G89.29 [facility] [address] [place] [id number] [place] [address] 91987- 7399 Dec, DM neuro manif type II E11.49 ; Right flank pain R10.9 ; 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 ; Encounter for medication monitoring Z51.81 and BMI 50.0-59.9, adult Z68.43 [place] [address] [place] [id number] [place] [address] 08088- 6358 Dec, Bipolar I disorder, most recent episode (or current) mixed, moderate F31.62 [place] [address] [place] [id number] [place] [address] 81960- 7283 Nov, Bipolar I disorder, most recent episode (or current) mixed, moderate F31.62 [place] [address] [place] [id number] [place] [address] 30642- 5897 Nov, Chronic pain G89.29 [place] [address] [place] [id number] [place] [address] 77506- 7984 Nov, Bipolar I disorder, most recent episode (or current) mixed, moderate F31.62 [place] [address] [place] [id number] [place] [address] 56644- 1982 Nov, Hypokalemia E87.6 [place] [address] [place] [id number] [place] [address] 07544- 3951 Nov, Bipolar I disorder, most recent episode (or current) mixed, moderate F31.62 [place] [address] [place] [id number] [place] [address] 43355- 7688 Oct, Chronic pain G89.29 [place] [address] [place] [id number] [place] [address] 91603- 3027 Oct, BMI 50.0-59.9, adult Z68.43 and Bipolar I disorder, most recent episode (or current) mixed, moderate F31.62 [place] [address] [place] [id number] [place] [address] 06524- 3080 Oct, Bipolar I disorder, most recent episode (or current) mixed, moderate F31.62 [place] [address] [place] [id number] [place] [address] 49314- 4212 Oct, [facility] [address] 57300- 3104 Oct, Hypokalemia E87.6 [facility] [address] 58627- 1833 Oct, DM neuro manif type II E11.49 [facility] [address] 45366- 2923 Oct, Bipolar I disorder, most recent episode (or current) mixed, moderate F31.62 [place] [address] 92066- 7633 Oct, Bipolar I disorder, most recent episode (or current) mixed, moderate F31.62 [place] [address] 09837- 6281 Oct, Hyperkalemia E87.5 ; Falling R29.6 ; BMI 50.0-59.9, adult Z68.43 and Acute left ankle pain M25.572 [place] [address] 06219- 0586 Oct, DM neuro manif type II E11.49 [place] [address] 11303- 9915 Oct, [place] [address] 83705- 5265 Sep, Chronic pain G89.29 [place] [address] 45226- 3967 Sep, [place] [address] 91395- 9717 Sep, Bilateral primary osteoarthritis of knee M17.0 [place] [address] 98852- 3432 Sep, Generalized edema R60.1 [place] [address] [place] [address]- 59[address] 16 Sep, 2017 Bipolar I disorder, most recent episode (or current) mixed, moderate F31.62 [place] [address] 23222- 8430 15 Sep, 2017 Hypoxia R09.02 ; Other hypervolemia E87.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 ; Anemia of chronic illness D63.8 and BMI 50.0- 59.9, adult Z68.43 [place] [address] 53514- 7176 Sep, [place] [address] 47700- 5200 Sep, Bipolar I disorder, most recent episode (or current) mixed, moderate F31.62 [place] [address] 79537- 8812 Aug, Chronic pain G89.29 [place] [address] 98414- 7033 Aug, Generalized edema R60.1 [place] [address] 66959- 4356 Aug, [place] [address] [place] [id number] [place] [address] 08269- 5385 Aug, [place] [address] 03426- 1161 14 Aug, 2017 Bipolar I disorder, most recent episode (or current) mixed, moderate F31.62 [place] [address] 68087- 1089 07 Aug, 2017 Bipolar I disorder, most recent episode (or current) mixed, moderate F31.62 [place] [address] 03284- 4945 04 Aug, 2017 Chronic pain G89.29 [facility] [address] [address]- [address] Jul, Bipolar I disorder, most recent episode (or current) mixed, moderate F31.62 [facility] [id number] [place] [address] 13360- 5444 Jul, Bipolar I disorder, most recent episode (or current) mixed, moderate F31.62 and BMI 60.0-69.9, adult Z68.44 [facility] [address] [place] [id number] [place] [address] 02841- 9254 Jul, Bipolar I disorder, most recent episode (or current) mixed, moderate F31.62 [facility] [address] [place] [id number] [place] [address] 34028- 5839 Jul, Chronic pain G89.29 [facility] [address] [place] [id number] [place] [address] 65628- 0369 Jul, Bipolar I disorder, most recent episode (or current) mixed, moderate F31.62 [facility] [address] [place] [id number] [place] [address] 88459- 8944 Jun, Polyneuropathy associated with underlying disease G63 and Diabetes E11.9 [facility] [address] [place] [id number] [place] [address] 37054- 0415 Jun, Bipolar I disorder, most recent episode (or current) mixed, moderate F31.62 [facility] [id number] [place] [address] 26845- 1752 Jun, Chronic pain G89.29 [facility] [address] [place] [address] 36128- 5848 May, Bipolar I disorder, most recent episode (or current) mixed, moderate F31.62 [facility] [address] [place] [address] 63166- 8784 May, Bipolar I disorder, most recent episode (or current) mixed, moderate F31.62 [facility] [address] [place] [id number] [place] [address] 73483- 4686 20 May, 2017 Diabetic polyneuropathy associated with type 2 diabetes mellitus E11.42 [facility] [address] [place] [id number] [place] [address] 74322- 8524 18 May, 2017 Bipolar I disorder, most recent episode (or current) mixed, moderate F31.62 [facility] [address] [place] [id number] [place] [address] 27992- 0400 13 May, 2017 Bipolar I disorder, most recent episode (or current) mixed, moderate F31.62 [facility] [address] [place] [id number] [place] [address] 25191- 9267 12 May, 2017 Chronic pain G89.29 [facility] [address] [place] [id number] [place] [address] 11432- 4273 30 Apr, 2017 Bipolar I disorder, most recent episode (or current) mixed, moderate F31.62 [facility] [address] [place] [id number] [place] [address] 19030- 9317 Apr, [facility] [address] [place] [id number] [place] [address] 47033- 6325 Apr, Chronic pain G89.29 and DM neuro manif type II E11.49 [facility] [address] [place] [id number] [place] [address] 57056- 7061 Apr, [facility] [address] [place] [id number] [place] [address] 11574- 4121 Apr, Bipolar I disorder, most recent episode (or current) mixed, moderate F31.62 [facility] [address] [place] [id number] [place] [address] 53831- 2904 14 Apr, 2017 Chronic pain G89.29 [facility] [address] [place] [id number] [place] [address] 25496- 5161 Apr, Iliotibial band syndrome, left M76.32 [facility] [address] [place] [id number] [place] [address] 68589- 9486 Apr, Bipolar I disorder, most recent episode (or current) mixed, moderate F31.62 [facility] [address] [address]- 1996 Mar, Bipolar I disorder, most recent episode (or current) mixed, moderate F31.62 [facility] [address] [place] [address] 38942- 3260 Mar, Bipolar I disorder, most recent episode (or current) mixed, moderate F31.62 [facility] [address] [place] [id number] [place] [address] 97379- 2963 Mar, [facility] [address] [place] [id number] [place] [address] 33048- 4684 Mar, Bipolar I disorder, most recent episode (or current) mixed, moderate F31.62 [place] [address] [place] [id number] [place] [address] 50154- 1454 Mar, Chronic pain G89.29 [facility] [address] [place] [id number] [place] [address] 19533- 9808 Mar, Bipolar I disorder, most recent episode (or current) mixed, moderate F31.62 [place] [address] [place] [address] 90191- 5151 Mar, Bipolar I disorder, most recent episode (or current) mixed, moderate F31.62 [place] [address] [place] [address] 97642- 7492 Mar, Acute pain of left knee M25.562 ; Left hip pain M25.552 ; Generalized edema R60.1 and Tongue swelling R22.0 [place] [address] [place] [id number] [place] [address] 41320- 1897 Mar, [facility] [address] [place] [id number] [place] [address] 25015- 9022 Feb, Chronic pain G89.29 [facility] [address] [place] [id number] [place] [address] 18680- 8577 Feb, Diabetes E11.9 [facility] [address] [address]- 2605 January, Chronic pain G89.29 [facility] [address] [place] [id number] [place] [address] 29190- 0533 January, [facility] [address] [place] [id number] [place] [address] 29586- 4542 January, Bipolar I disorder, most recent episode (or current) mixed, moderate F31.62 [facility] [address] [place] [id number] [place] [address] 87337- 3805 Dec, Bipolar I disorder, most recent episode (or current) mixed, moderate F31.62 [facility] [address] [place] [id number] [place] [address] 21215- 1524 Dec, Chronic pain G89.29 [facility] [address] [place] [id number] [place] [address] 61015- 3009 Dec, Bipolar I disorder, most recent episode (or current) mixed, moderate F31.62 [facility] [address] [place] [id number] [place] [address] 98606- 2636 Dec, Diabetes E11.9 ; Essential hypertension I10 ; Chronic pain G89.29 and Morbid obesity E66.01 [facility] [address] [place] [address] 33568- 4181 Dec, [facility] [address] [place] [id number] [place] [address] 57811- 9707 Dec, Bipolar I disorder, most recent episode (or current) mixed, moderate F31.62 [facility] [address] [place] [id number] [place] [address] 14476- 2313 Dec, Bipolar I disorder, most recent episode (or current) mixed, moderate F31.62 [facility] [address] [place] [id number] [place] [address] 33145- 2480 Nov, Chronic pain G89.29 [facility] [address] [id number] [address]- 2647 Nov, Bipolar I disorder, most recent episode (or current) mixed, moderate F31.62 [facility] [address] [address]- 1306 Nov, [facility] [address] [address]- 4485 Nov, Bipolar I disorder, most recent episode (or current) mixed, moderate F31.62 [facility] [address] [address]- 4514 Nov, Bipolar I disorder, most recent episode (or current) mixed, moderate F31.62 [facility] [address] [place] [address] 82611- 0116 Nov, [facility] [address] [place] [id number] [place] [address] 26088- 8505 Nov, [facility] [address] [place] [address] 61397- 5304 Nov, [facility] [address] [place] [address] 60626- 0866 Oct, Chronic pain G89.29 [facility] [address] [address]- 6142 Oct, Bipolar I disorder, most recent episode (or current) mixed, moderate F31.62 [facility] [address] [address]- 3715 Oct, [facility] [address] [place] [address] 55949- 9281 Oct, Chronic pain G89.29 ; Diabetes E11.9 ; Anxiety F41.9 and 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 [facility] [address] [address]- 8342 Oct, [facility] [address] [place] [id number] [place] [address] 41727- 8054 Oct, Diabetes E11.9 [facility] [address] [place] [id number] [place] [address] 827496- 0786 Oct, Bipolar I disorder, most recent episode (or current) mixed, moderate F31.62 [facility] [address] [place] [id number] [place] [address] 11496- 5136 Sep, Chronic pain G89.29 [facility] [address] [place] [id number] [place] [address] 57794- 7816 Sep, Chronic pain G89.29 [facility] [address] [id number] [place] [address] 662692- 5006 Aug, Chronic pain G89.29 [facility] [address] [id number] [place] [address] 54706- 3876 Jul, [facility] [id number] [place] [address] 32849- 2577 Jul, Diabetes E11.9 [facility] [id number] [place] [address] 69811- 5491 Jul, Chronic pain G89.29 [facility] [id number] [place] [address] 19941- 0447 Jul, Bipolar I disorder, most recent episode (or current) mixed, moderate F31.62 [facility] [id number] [place] [address] 55396- 6406 Jun, Bipolar I disorder, most recent episode (or current) mixed, moderate F31.62 [facility] [address] [place] [address] 97105- 1926 Jun, [facility] [id number] [place] [address] 79233- 2826 Jun, Bipolar I disorder, most recent episode (or current) mixed, moderate F31.62 [facility] [id number] [place] [address] 95240- 3655 30 May, 2016 Insomnia, unspecified type G47.00 [facility] [id number] [place] [address] 53332- 5102 May, Bipolar I disorder, most recent episode (or current) mixed, moderate F31.62 [place] [id number] [place] [address] 30471- 2471 14 May, 2016 [place] [address] 94709- 0891 May, Bipolar I disorder, most recent episode (or current) mixed, moderate F31.62 [place] [address] 85010- 2180 May, Diabetes E11.9 and Essential hypertension I10 [place] [address] 43509- 0145 Apr, Chronic pain G89.29 [place] [address] 52723- 7163 Apr, Bipolar I disorder, most recent episode (or current) mixed, moderate F31.62 [place] [id number] [place] [address] 44039- 3696 Apr, [place] [id number] [place] [address] 22138- 4084 Apr, [place] [address] 16097- 7053 Mar, Chronic pain G89.29 ; Headache, unspecified headache type R51 ; Neuropathy G62.9 ; Pain of right hip joint M25.551 and Essential hypertension I10 [place] [id number] [place] [address] 59684- 6377 Mar, Chronic pain G89.29 [facility] [id number] [place] [address] 59484- 7044 Mar, Bipolar I disorder, most recent episode (or current) mixed, moderate F31.62 [facility] [id number] [place] [address] 01737- 0386 Feb, Bipolar I disorder, most recent episode (or current) mixed, moderate F31.62 and Insomnia, unspecified type G47.00 [facility] [id number] [place] [address] 21336- 5882 Feb, Chronic pain G89.29 [facility] [address] [address]- [address] Feb, Bipolar I disorder, most recent episode (or current) mixed, moderate F31.62 [place] [address] 292950- 7826 January, Bipolar I disorder, most recent episode (or current) mixed, moderate F31.62 [facility] [id number] [place] [address] 27175- 5563 January, Chronic pain G89.29 [facility] [id number] [place] [address] 25489- 7351 January, Chronic pain G89.29 and Essential hypertension I10 [place] [address] 07193- 1561 January, Bipolar I disorder, most recent episode (or current) mixed, moderate F31.62 [facility] [place] [id number] [place] [address] 88672- 2527 Dec, [place] [id number] [place] [address] 98888- 9691 Dec, [facility] [id number] [place] [address] 84255- 0573 Dec, [place] [address] 38[address]- [address]182 Dec, [facility] [id number] [place] [address] 44688- 7235 Nov, Reactive airway disease J45.909 [place] [id number] [address] Nov, [place] [id number] [place] [address] 46659- 1116 Nov, [facility] [id number] [place] [address] 89439- 0227 Nov, [place] [id number] [place] [address] 64374- 0534 Nov, [place] [id number] [place] [address] 20879- 1259 Nov, Onychomycosis B35.1 ; Hammertoe M20.40 ; [place] or callus L84 and DM neuro manif type II E11.49 [id number] [place] [address] 79312- 1393 Nov, Chronic pain G89.29 ; Leukocytosis D72.829 and Diabetes E11.9 [place] [id number] [place] [address] 27615- 7344 Nov, [place] [id number] [place] [address] 07475- 5662 Oct, Bronchitis J40 [place] [id number] [place] [address] 06792- 1809 Oct, [facility] [id number] [place] [address] 23867- 1112 Oct, [place] [id number] [place] [address] 83762- 0850 Oct, Mastoiditis, unspecified laterality H70.90 and Type 2 diabetes mellitus with complication E11.8 [place] [id number] [place] [address] 22799- 0720 Sep, [place] [id number] [place] [address] 72689- 1530 Sep, Dysuria R30.0 ; Cough R05 ; Benign prostatic hyperplasia with lower urinary tract symptoms, unspecified morphology N40.1 ; Hypokalemia E87.6 and Eustachian tube dysfunction, unspecified laterality H69.80 [facility] [id number] [place] [address] 09076- 6411 Sep, Moderate mixed bipolar I disorder F31.62 [facility] [id number] [place] [address] 45902- 1543 Sep, Hypokalemia E87.6 [facility] [id number] [place] [address] 80182- 3290 Sep, [facility] [id number] [place] [address] 67348- 1483 Sep, Upper respiratory tract infection, unspecified type J06.9 [facility] [id number] [place] [address] 01833- 2410 Aug, [facility] [id number] [place] [address] 57546- 5730 Aug, Dysuria R30.0 [facility] [id number] [place] [address] 39455- 9335 Aug, [facility] [id number] [place] [address] 61668- 2436 Jul, [facility] [id number] [place] [address] 02896- 1508 Jul, [facility] [id number] [place] [address] 66555- 3452 Jul, [facility] [id number] [place] [address] 60913- 9705 Jul, [facility] [id number] [place] [address] 78927- 5839 Jun, [facility] [id number] [place] [address] 22997- 5151 Jun, [facility] [id number] [address]- 6407 Jun, [facility] [id number] [place] [address] 50284- 7780 May, [facility] [id number] [place] [address] 33725- 4371 May, Bipolar I disorder, most recent episode (or current) mixed, moderate 296.62 [facility] [id number] [place] [address] 37900- 1926 May, [facility] [id number] [place] [address] 12915- 6039 May, Bipolar I disorder, most recent episode (or current) mixed, moderate 296.62 and Major depressive disorder, recurrent episode, severe, specified as with psychotic behavior 296.34 [facility] [id number] [place] [address] 99640- 1071 May, Bipolar I disorder, most recent episode (or current) mixed, moderate 296.62 [facility] [id number] [place] [address] 33612- 6798 May, [facility] [id number] [place] [address] 29965- 2291 Apr, [facility] [id number] [place] [address] 55264- 0986 Apr, [facility] [id number] [place] [address] 60513- 3711 Apr, Unspecified disorder of kidney and ureter 593.9 and Diabetes mellitus type 2, uncontrolled 250.02 [facility] [id number] [place] [address] 20222- 1039 Apr, [facility] [id number] [place] [address] 65181- 0898 Apr, [facility] [id number] [place] [address] 68689- 9993 Apr, [facility] [id number] [address]- 1300 Apr, [facility] [id number] [place] [address] 96132- 9825 Apr, Diabetes mellitus type II, uncontrolled 250.02 [facility] [address] [address]- 8116 Apr, [facility] [id number] [place] [address] 22329- 9520 Mar, [facility] [id number] [place] [address] 56892- 1790 Mar, [facility] [id number] [place] [address] 81455- 8386 Mar, [facility] [id number] [place] [address] 67247- 6474 Mar, Major depressive disorder, recurrent episode, severe, specified as with psychotic behavior 296.34 and Bipolar I disorder, most recent episode (or current) mixed, moderate 296.62 [facility] [id number] [place] [address] 68638- 7338 Mar, Diabetes 250.00 ; Anuria 788.5 ; Nausea and vomiting 787.01 and Diarrhea 787.91 [facility] [address] [address]- 6806 Mar, Diabetes 250.00 [facility] [address] [address]- 5766 Mar, [facility] [id number] [address]- 6810 Mar, Diabetes 250.00 [facility] [id number] [address]- 7732 Mar, [facility] [id number] [address]- 0646 Mar, [facility] [id number] [address]- 8749 Mar, [facility] [id number] [place] [address] 32531- 6026 Mar, [facility] [id number] [place] [address] 53496- 3854 Mar, Bipolar I disorder, most recent episode (or current) mixed, moderate 296.62 and Major depressive disorder, recurrent episode, severe, specified as with psychotic behavior 296.34 [place] [id number] [place] [address] 73784- 4050 Mar, Magnesium deficiency 275.2 ; Hypokalemia 276.8 ; Nausea & vomiting 787.01 and Diabetes mellitus type 2, uncontrolled 250.02 [place] [id number] [place] [address] 67720- 6444 Feb, [place] [id number] [place] [address] 39792- 5314 Feb, Bipolar I disorder, most recent episode (or current) mixed, moderate 296.62 [place] [id number] [place] [address] 20745- 3785 Feb, Nausea and vomiting 787.01 ; Left elbow pain 719.42 ; Anuria 788.5 and Diabetes 250.00 [place] [address] [address]- 9447 Feb, [place] [id number] [place] [address] 86051- 1901 Feb, Hypopotassemia 276.8 and Hypokalemia 276.8 [place] [id number] [place] [address] 91427- 1643 Feb, Hypopotassemia 276.8 and Hypokalemia 276.8 [place] [address] [address]- 5297 Feb, Seborrheic keratoses 702.19 [place] [address] [address]- 3556 Feb, Hypopotassemia 276.8 and Low magnesium levels 275.2 [facility] [id number] [address]- 4361 January, [facility] [id number] [address]- 7878 January, [facility] [id number] [place] [address] 81091- 9538 January, [facility] [id number] [place] [address] 20373- 5802 January, Scalp lesion 709.9 [facility] [id number] [place] [address] 54953- 4274 January, [facility] [id number] [place] [address] 35512- 5658 Dec, Tear of medial cartilage or meniscus of knee, current 836.0 and 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 [facility] [address] [address]- 1532 Dec, [facility] [id number] [address]- 2425 Dec, [facility] [address] [address]- 0994 Dec, Squamous cell carcinoma, 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 [facility] [address] [address]- 2397 Dec, [facility] [id number] [address]- 3367 Dec, [facility] [id number] [address]- 6652 Nov, [facility] [id number] [address]- 9354 Nov, [facility] [id number] [place] [address]- 7729 Nov, 2014 [facility] [place] [facility] [address] [id number] [place] [address]- 8658 Nov, [facility] [place] [facility] [address] [id number] [place] [address]- 4738 Nov, 2014 [facility] [place] [facility] [address] [id number] [place] [address]- 2762 Nov, 2014 [facility] [place] [facility] [address] [id number] [place] [address]- 5900 Nov, [facility] [place] [facility] [address] [id number] [place] [address]- 5565 Nov, [facility] [place] [facility] [address] [id number] [place] [address]- 5469 Nov, [facility] [place] [facility] [address] [id number] [place] [address]- 9950 Nov, 2014 [facility] [place] [facility] [address] [id number] [place] [address]- 3612 Nov, [facility] [place] [facility] [address] [id number] [place] [address]- 8906 Nov, [facility] [place] [facility] [address] [id number] [place] [address]- 7575 Oct, 2014 [facility] [place] [facility] [address] [id number] [place] [address]- 6586 Oct, 2014 [facility] [place] [facility] [address] [id number] [place] [address]- 1805 Oct, 2014 [facility] [place] [facility] [address] [id number] [place] [address]- 6757 Oct, 2014 [facility] [place] [facility] [address] [id number] [place] [address]- 0869 Oct, 2014 [facility] [place] [facility] [address] [id number] [place] [address]- 2922 Oct, [facility] [place] [facility] [address] [id number] [place] [address]- 9479 Oct, [facility] [place] [facility] [address] [id number] [place] 7441 Oct, [facility] [place] [facility] [address] [id number] [place] [address]- 4380 Oct, [facility] [place] [facility] [address] [id number] [place] [address]- 2827 Sep, [facility] [place] [facility] [address] [id number] [place] [address]- 4536 Sep, [facility] [place] [facility] [address] [id number] [place] [address]- 4373 Sep, [facility] [place] [facility] [address] [id number] [place] [address]- 2205 Sep, [facility] [place] [facility] [address] [id number] [place] [address]- 3516 Sep, [facility] [place] [facility] [address] [id number] [place] [address]- 8532 Sep, [facility] [place] [facility] [address] [id number] [place] [address]- 3396 Sep, [facility] [place] [facility] [address] [id number] [address]- 9908 Sep, [facility] [place] [facility] [address] [id number] [address]- 2316 Sep, [facility] [place] [facility] [address] [id number] [address]- 6429 Sep, [facility] [place] [facility] [address] [id number] [address]- 8086 Sep, [facility] [place] [facility] [address] [id number] [place] [address]- 7946 Sep, [facility] [place] [facility] [address] [id number] [place] [address]- 0584 07 Sep, 2014 [facility] [address] [id number] [place] [address]- 6033 Sep, [facility] [address] [id number] [place] [address]- 7931 Sep, [facility] [address] [id number] [place] [address]- 7801 Sep, [facility] [address] [id number] [place] [address]- 0944 Aug, [facility] [address] [id number] [place] [address]- 4524 Aug, [facility] [address] [id number] [place] [address]- 6005 Aug, [facility] [address] [id number] [place] [address]- 4961 Aug, [facility] [address] [id number] [place] [address]- 6235 Aug, [facility] [address] [id number] [place] [address]- 4564 Aug, [facility] [address] [id number] [place] [address]- 6025 Aug, [facility] [address] [id number] [place] [address]- 4492 Aug, [facility] [address] [id number] [place] [address]- 0475 Aug, [facility] [address] [id number] [place] [address]- 8293 Aug, [facility] [address] [id number] [place] 0132 Aug, [facility] [address] [place] [id number] Aug, [facility] [place] [facility] [address] [id number] [place] [address]- 7135 Aug, [facility] [place] [facility] [address] [id number] [place] [address]- 3141 Aug, [facility] [place] [facility] [address] [id number] [place] [address]- 8664 Aug, [facility] [place] [facility] [address] [id number] [place] [address]- 9720 Aug, [facility] [place] [facility] [address] [id number] [place] [address]- 4371 Aug, [facility] [place] [facility] [address] [id number] [place] [address]- 1986 Aug, [facility] [place] [facility] [address] [id number] [place] [address]- 3824 Aug, [facility] [place] [facility] [address] [id number] [place] [address]- 1922 Aug, [facility] [place] [facility] [address] [id number] [place] [address]- 6028 Aug, [facility] [place] [facility] [address] [id number] [place] [address]- 2111 Aug, [facility] [place] [facility] [address] [id number] [place] [address]- 3300 Aug, [facility] [place] [facility] [address] [id number] [place] [address]- 4610 Aug, [facility] [place] [facility] [address] [id number] [place] [address]- 1976 Aug, [facility] [place] [facility] [address] [id number] [place] [address]- 1471 Aug, [facility] [place] [facility] [address] [id number] [place] [address]- 7949 Aug, [facility] [place] [facility] [address] [id number] [address]- 4686 Aug, [facility] [place] [facility] [address] [id number] [place] 1307 Aug, [facility] [place] [facility] [address] [id number] [place] [address]- 8198 Aug, [facility] [place] [facility] [address] [facility] [id number] [place] [address]- 6373 Jul, [facility] [place] [facility] [address] [id number] [place] [address]- 9313 Jul, [facility] [place] [facility] [address] [id number] [place] [address]- 6832 Jul, [facility] [place] [facility] [address] [id number] [place] [address]- 9640 Jul, [facility] [place] [facility] [address] [id number] [place] [address]- 7487 Jul, [facility] [place] [facility] [address] [id number] [place] [address]- 7489 Jul, [facility] [place] [facility] [address] [id number] [place] [address]- 8910 Jul, [facility] [place] [facility] [address] [id number] [place] [address]- 4983 Jul, [facility] [place] [facility] [address] [id number] [address]- 6362 Jul, [facility] [place] [facility] [address] [id number] [address]- 9156 Jul, [facility] [place] [facility] [address] [id number] [place] [address]- 1919 Jun, [facility] [place] [facility] [address] [id number] [place] [address]- 1925 Jun, [facility] [place] [facility] [address] [id number] [place] [address]- 8648 Jun, [facility] [place] [facility] [address] [id number] [place] [address]- 7578 16 Jun, 2014 [facility] [place] [facility] [address] [id number] [place] [address]- 0492 15 Jun, 2014 [facility] [place] [facility] [address] [id number] [place] [address]- 2096 15 Jun, 2014 [facility] [place] [facility] [address] [id number] [place] [address]- 8657 05 Jun, 2014 [facility] [place] [facility] [address] [id number] [place] [address]- 1176 Jun, [facility] [place] [facility] [address] [id number] [place] [address]- 8440 Jun, [facility] [place] [facility] [address] [id number] [place] [address]- 2343 Jun, [facility] [place] [facility] [address] [id number] [place] [address]- 2580 29 May, 2013 [facility] [place] [facility] [address] [id number] [place] [address]- 5963 29 Sep, 2013 [facility] [place] [facility] [address] [id number] [place] [address]- 2549 26 Sep, 2013 [facility] [place] [facility] [address] [id number] [place] [address]- 2542 26 Sep, 2013 [facility] [place] [facility] [address] [id number] [place] [address] 2546 17 Sep, 2013 [facility] [place] [facility] [address] [id number] [place] [address]- 2548 17 Sep, 2013 [facility] [place] [facility] [address] [id number] [place] [address] 2543 15 Sep, 2013 [facility] [place] [facility] [address] [id number] [place] [address]- 2545 15 Sep, 2013 [facility] [place] [facility] [address] [id number] [place] [address]- 2546 15 May, 2013 [facility] [place] [facility] [address] [id number] [place] [address]- 0950 15 May, 2013 [facility] [place] [facility] [address] [id number] [place] [address]- 9036 10 May, 2013 [facility] [place] [facility] [address] [id number] [place] [address]- 8366 10 May, 2013 [facility] [place] [facility] [address] [id number] [place] [address]- 9906 09 May, 2013 [facility] [place] [facility] [address] [id number] [place] [address]- 4406 May, 2013 [facility] [place] [facility] [address] [id number] [place] [address]- 3978 May, 2013 [facility] [place] [facility] [address] [id number] [place] [address]- 2065 May, 2013 [facility] [place] [facility] [address] [id number] [place] [address]- 4917 Apr, [facility] [place] [facility] [address] [id number] [place] [address]- 5273 Apr, [facility] [place] [facility] [address] [id number] [place] [address]- 0421 Apr, [facility] [place] [facility] [address] [id number] [place] [address]- 1159 Apr, [facility] [place] [facility] [address] [id number] [place] [address]- 1908 Apr, [facility] [place] [facility] [address] [id number] [place] [address]- 7257 Apr, [facility] [place] [facility] [address] [id number] [place] [address] Apr, [facility] [place] [facility] [address] [id number] [place] [address] Apr, [facility] [place] [facility] [address] [id number] [place] [address] Apr, [facility] [place] [facility] [address] [id number] [place] [address] Apr, [facility] [place] [facility] [address] [id number] [place] [address] Apr, [facility] [place] [facility] [address] [id number] [place] [address] Apr, [facility] [place] [facility] [address] [id number] [place] [address] Apr, [facility] [place] [facility] [address] [id number] [place] [address] Apr, [facility] [place] [facility] [address] [id number] [place] [address] Apr, [facility] [place] [facility] [address] [id number] [place] [address] Mar, [facility] [place] [facility] [address] [id number] [place] [address] Mar, [facility] [place] [facility] [address] [id number] [place] [address] Mar, [facility] [place] [facility] [address] [id number] [place] [address] Mar, [facility] [place] [facility] [address] [id number] [place] [address] Mar, [facility] [place] [facility] [address] [id number] [place] [address] Mar, [facility] [place] [facility] [address] [id number] [place] [address] Mar, [facility] [place] [facility] [address] [id number] [place] [address] Mar, [facility] [place] [facility] [address] [id number] [place] [address] Mar, [facility] [place] [facility] [address] [id number] [place] [address] Mar, 2013 [facility] [place] [facility] [address] [id number] [place] [address] Mar, 2013 [facility] [place] [facility] [address] [id number] [place] [address] Mar, 2013 [facility] [place] [facility] [address] [id number] [place] [address] Mar, 2013 [facility] [place] [facility] [address] [id number] [place] [address] Mar, 2013 [facility] [place] [facility] [address] [id number] [place] [address] Mar, 2013 [facility] [place] [facility] [address] [id number] [place] [address] Mar, 2013 [facility] [place] [facility] [address] [id number] [place] [address] Mar, 2013 [facility] [place] [facility] [address] [id number] [place] [address] Mar, [facility] [place] [facility] [address] [id number] [place] [address] Feb, [facility] [place] [facility] [address] [id number] [place] [address] Feb, [facility] [place] [facility] [address] [id number] [place] [address] Feb, [facility] [place] [facility] [address] [id number] [place] [address] Feb, [facility] [place] [facility] [address] [id number] [place] [address] Feb, [facility] [place] [facility] [address] [id number] [place] [address] Feb, [facility] [place] [facility] [address] [id number] [place] [address] Feb, [facility] [place] [facility] [address] [id number] [place] [address] 78[address] Feb, [facility] [place] [facility] [address] [id number] [place] [address] Feb, [facility] [place] [facility] [address] [id number] [place] [address] Feb, [facility] [place] [facility] [address] [id number] [place] [address] Feb, [facility] [place] [facility] [address] [id number] [place] [address] Feb, [facility] [place] [facility] [address] [id number] [place] [address]- [address] Feb, [facility] [place] [facility] [address] [id number] [place] [address] Feb, [facility] [place] [facility] [address] [id number] [place] [address] January, [facility] [place] [facility] [address] [id number] [place] [address]- [address] January, [facility] [place] [facility] [address] [id number] [place] [address] 27[address] January, [facility] [place] [facility] [address] [id number] [place] [address] January, [facility] [place] [facility] [address] [id number] [place] [address] January, [facility] [place] [facility] [address] [id number] [place] [address] 48[address] January, [facility] [place] [facility] [address] [id number] [place] [address] January, [facility] [place] [facility] [address] [id number] [place] [address] 39[address] January, [facility] [place] [facility] [address] [id number] [place] [address] January, [facility] [address] [id number] [place] [address] January, [facility] [place] [facility] [address] [id number] [place] [address] 8[address] January, [facility] [place] [facility] [address] [id number] [place] [address] January, [facility] [place] [facility] [address] [id number] [place] [address] January, [facility] [place] [facility] [address] [id number] [place] [address] January, [facility] [place] [facility] [address] [id number] [place] [address]- [address] Dec, [facility] [place] [facility] [address] [id number] [place] [address] Dec, [facility] [place] [facility] [address] [id number] [place] [address] 75[address] Dec, [facility] [place] [facility] [address] [id number] [place] [address] 7583 Dec, [facility] [place] [facility] [address] [id number] [place] [address]- 1415 Dec, [facility] [place] [facility] [address] [id number] [place] [address]- 3490 Dec, [facility] [place] [facility] [address] [id number] [place] [address] 9000 Dec, [facility] [place] [facility] [address] [id number] [place] [address]- 5381 Dec, [facility] [place] [facility] [address] [id number] [place] [address]- 1847 Dec, [facility] [place] [facility] [address] [id number] [place] [address]- 8873 Dec, [facility] [place] [facility] [address] [id number] [place] [address]- 5381 Nov, [facility] [place] [facility] [address] [id number] [place] [address]- 3771 Nov, [facility] [place] [facility] [address] [id number] [place] [address]- 2343 Nov, [facility] [place] [facility] [address] [id number] [place] [address] 7201 Nov, [facility] [place] [facility] [address] [id number] [place] [address] 1909 Nov, [facility] [place] [facility] [address] [id number] [place] [address]- 5064 Nov, [facility] [place] [facility] [address] [id number] [place] [address]- 8734 Nov, [facility] [place] [facility] [address] [id number] [place] [address]- 9410 Nov, [facility] [place] [facility] [address] [id number] [place] [address]- 9765 Nov, [facility] [place] [facility] [address] [id number] [place] [address]- 9055 Nov, [facility] [place] [facility] [address] [id number] [place] [address]- 8419 Oct, [facility] [place] [facility] [address] [id number] [place] [address]- 0421 Oct, [facility] [place] [facility] [address] [id number] [place] [address]- 7545 Oct, [facility] [place] [facility] [address] [id number] [place] [address]- 5792 Oct, [facility] [place] [facility] [address] [id number] [place] [address]- 0619 Oct, [facility] [place] [facility] [address] [id number] [place] [address]- 0598 Oct, [facility] [place] [facility] [address] [id number] [place] [address]- 5516 Oct, [facility] [place] [facility] [address] [id number] [place] [address] Oct, [facility] [place] [facility] [address] [id number] [place] [address]- 7566 Oct, [facility] [place] [facility] [address] [id number] [place] [address]- 9486 Oct, [facility] [place] [facility] [address] [id number] [place] [address]- 0624 Oct, [facility] [place] [facility] [address] [id number] [place] [address]- 4824 Oct, [facility] [place] [facility] [address] [id number] [place] [address]- 2803 Oct, [facility] [place] [facility] [address] [id number] [place] [address]- 0582 Oct, [facility] [place] [facility] [address] [id number] [place] [address]- 0248 Sep, [facility] [place] [facility] [address] [facility] [id number] [place] [address]- 3991 Sep, [facility] [place] [facility] [address] [id number] [place] [address]- 3908 Sep, [facility] [place] [facility] [address] [id number] [place] [address]- 3203 Sep, [facility] [place] [facility] [address] [id number] [place] [address]- 3135 Sep, [facility] [place] [facility] [address] [id number] [place] [address]- 0642 Sep, [facility] [place] [facility] [address] [id number] [place] [address]- 5754 Sep, [facility] [place] [facility] [address] [id number] [place] [address]- 2217 14 Sep, 2013 [facility] [place] [facility] [address] [id number] [place] [address]- 9806 Sep, [facility] [place] [facility] [address] [id number] [place] [address]- 2806 Sep, [facility] [place] [facility] [address] [id number] [place] [address]- 1030 Aug, [facility] [place] [facility] [address] [id number] [place] [address]- 5795 Aug, [facility] [place] [facility] [address] [id number] [place] [address]- 0229 Jul, [facility] [place] [facility] [address] [id number] [place] [address]- 1910 Jul, [facility] [place] [facility] [address] [id number] [place] [address]- 2769 Jul, [facility] [place] [facility] [address] [id number] [place] [address]- 4210 Jul, [facility] [place] [facility] [address] [id number] [place] [address]- 0669 Jul, [facility] [place] [facility] [address] [id number] [place] [address]- 5217 Jul, [facility] [place] [facility] [address] [id number] [address] 9207 Jul, [facility] [place] [facility] [address] [id number] [place] [address]- 5704 Jul, [facility] [place] [facility] [address] [id number] [place] [address]- 5801 Jul, [facility] [place] [facility] [address] [id number] [place] [address]- 7655 Jul, [facility] [place] [facility] [address] [id number] [address] 07 Jul, 2012 [facility] [place] [facility] [address] [id number] [place] [address]- 1656 Jul, 2012 [facility] [place] [facility] [address] [id number] [address] 6133 Jul, 2012 [facility] [place] [facility] [address] [id number] [place] [address]- 4928 Jul, 2012 [facility] [place] [facility] [address] [id number] [address] 0589 Jul, 2012 [facility] [place] [facility] [address] [id number] [place] [address]- 7685 Jul, 2012 [facility] [place] [facility] [address] [id number] [place] [address]- 2263 Jul, 2012 [facility] [place] [facility] [address] [id number] [address]- 6631 Jul, 2012 [facility] [place] [facility] [address] [id number] [address]- 2788 Jul, [facility] [place] [facility] [address] [id number] [address]- 3925 16 Jun, 2012 [facility] [place] [facility] [address] [id number] [address]- 6078 16 Jun, 2012 [facility] [place] [facility] [address] [id number] [address]- 3867 16 Jun, 2012 [facility] [place] [facility] [address] [id number] [address]- 9897 16 Jun, 2012 [facility] [place] [facility] [address] [id number] [place] [address]- 8405 16 Jun, 2012 [facility] [place] [facility] [address] [id number] [address]- 4940 16 Jun, 2012 [facility] [place] [facility] [address] [facility] [id number] [address]- 5228 10 Jun, 2012 [facility] [place] [facility] [address] [id number] [place] [address]- 3130 Jun, [facility] [place] [facility] [address] [id number] [place] [address]- 9766 Jun, [facility] [place] [facility] [address] [id number] [place] [address] 2546 Jun, [facility] [place] [facility] [address] [id number] [place] [address]- 4951 Jun, [facility] [place] [facility] [address] [id number] [place] [address]- 6700 26 May, 2012 [facility] [place] [facility] [address] [id number] [place] [address]- 3272 25 May, 2012 [facility] [place] [facility] [address] [id number] [place] [address]- 9915 19 May, 2013 [facility] [place] [facility] [address] [id number] [place] [address]- 1889 17 May, 2013 [facility] [place] [facility] [address] [id number] [place] [address]- 7545 11 May, 2013 [facility] [place] [facility] [address] [id number] [place] [address]- 3820 10 May, 2013 [facility] [place] [facility] [address] [id number] [place] [address]- 6292 May, [facility] [place] [facility] [address] [id number] [place] [address]- 2548 05 May, 2013 [facility] [place] [facility] [address] [id number] [place] [address] 2540 Apr, [facility] [place] [facility] [address] [id number] [place] [address] 2541 Apr, [facility] [place] [facility] [address] [id number] [place] [address]- 2548 Apr, [facility] [place] [facility] [address] [id number] [place] [address]- 1296 Apr, [facility] [address] [id number] [place] [address]- 0553 Apr, [facility] [place] [facility] [address] [id number] [place] [address]- 3442 Mar, [facility] [place] [facility] [address] [id number] [place] [address]- 6705 Mar, [facility] [place] [facility] [address] [id number] [place] [address]- 7064 Mar, [facility] [place] [facility] [address] [id number] [place] [address]- 2375 Mar, [facility] [place] [facility] [address] [id number] [place] [address]- 9308 Mar, [facility] [place] [facility] [address] [id number] [place] [address]- 7305 Mar, [facility] [place] [facility] [address] [id number] [place] [address]- 5184 Mar, [facility] [place] [facility] [address] [id number] [place] [address]- 5195 Mar, [facility] [place] [facility] [address] [id number] [place] [address]- 5322 Feb, [facility] [place] [facility] [address] [id number] [place] [address]- 4643 Feb, [facility] [place] [facility] [address] [id number] [address]- 2133 January, [facility] [place] [facility] [address] [id number] [place] [address]- 4596 January, [facility] [place] [facility] [address] [id number] [place] [address]- 2153 Dec, [facility] [place] [facility] [address] [id number] [place] [address]- 9940 Dec, [facility] [place] [facility] [address] [id number] [place] [address]- 9936 Nov, [facility] [address] [id number] [place] [address]- 7808 Nov, [facility] [place] [facility] [address] [id number] [place] [address]- 7428 Nov, [facility] [place] [facility] [address] [id number] [place] [address]- 4188 Nov, [facility] [place] [facility] [address] [id number] [place] [address] 2543 27 Oct, 2012 [facility] [place] [facility] [address] [id number] [place] [address]- 2556 Oct, [facility] [place] [facility] [address] [id number] [place] [address]- 9728 Oct, [facility] [place] [facility] [address] [id number] [place] [address]- 6154 26 Oct, 2012 [facility] [place] [facility] [address] [id number] [place] [address]- 7743 16 Oct, 2012 [facility] [place] [facility] [address] [id number] [place] [address]- 2946 14 Oct, 2012 [facility] [place] [facility] [address] [facility] [id number] [place] [address]- 0400 08 Oct, 2012 [facility] [place] [facility] [address] [facility] [id number] [place] [address]- 3780 07 Oct, 2012 [facility] [place] [facility] [address] [id number] [place] [address]- 5019 03 Oct, 2012 [facility] [place] [facility] [address] [id number] [place] [address]- 4858 30 Sep, 2012 [facility] [place] [facility] [address] [id number] [place] [address]- 6628 29 Sep, 2012 [facility] [place] [facility] [address] [facility] [id number] [place] [address]- 9258 Sep, [facility] [place] [facility] [address] [id number] [place] [address]- 9978 Sep, [facility] [place] [facility] [address] [id number] [place] [address]- 4576 Sep, [facility] [place] [facility] [address] [id number] [place] [address]- 8133 Sep, [facility] [place] [facility] [address] [id number] [place] [address]- 8627 Sep, [facility] [place] [facility] [address] [id number] [place] [address]- 7669 Sep, [facility] [place] [facility] [address] [id number] [place] [address]- 6402 Aug, [facility] [place] [facility] [address] [id number] [place] [address]- 7106 Aug, [facility] [place] [facility] [address] [id number] [place] [address]- 1584 Aug, [facility] [place] [facility] [address] [id number] [place] [address]- 0712 Aug, [facility] [place] [facility] [address] [id number] [place] [address]- 5898 Aug, [facility] [place] [facility] [address] [id number] [place] [address]- 9937 Aug, [facility] [place] [facility] [address] [id number] [place] [address]- 7182 Aug, [facility] [place] [facility] [address] [id number] [place] [address]- 2820 Aug, [facility] [place] [facility] [address] [id number] [place] [address]- 4728 Jul, [facility] [place] [facility] [address] [id number] [place] [address]- 9694 Jul, [facility] [place] [facility] [address] [id number] [place] [address]- 2402 Jul, [facility] [place] [facility] [address] [id number] [place] [address]- 5179 Jul, [facility] [place] [facility] [address] [id number] [place] [address]- 0371 Jul, [facility] [place] [facility] [address] [id number] [place] [address]- 7884 Jul, [facility] [place] [facility] [address] [id number] [place] [address]- 7885 Jun, [facility] [place] [facility] [address] [id number] [place] [address]- 6086 Jun, [facility] [place] [facility] [address] [id number] [place] [address]- 8096 Jun, [facility] [place] [facility] [address] [id number] [place] [address]- 5122 Jun, [facility] [place] [facility] [address] [id number] [place] [address]- 6928 Jun, [facility] [place] [facility] [address] [id number] [place] [address]- 5658 Jun, [facility] [place] [facility] [address] [id number] [place] [address]- 4455 Jun, [facility] [place] [facility] [address] [id number] [place] [address]- 0392 10 Jun, 2012 [facility] [place] [facility] [address] [id number] [place] [address]- 9615 10 Jun, 2012 [facility] [place] [facility] [address] [id number] [place] [address]- 4413 26 May, 2012 [facility] [place] [facility] [address] [id number] [place] [address]- 6000 24 Sep2011 [facility] [place] [facility] [address] [id number] [place] [address]- 9920 May, [facility] [place] [facility] [address] [id number] [place] [address]- 0628 Apr, [facility] [place] [facility] [address] [id number] [place] [address]- 5572 Apr, [facility] [place] [facility] [address] [id number] [place] [address]- 1630 Apr, [facility] [place] [facility] [address] [id number] [place] [address]- 8017 Apr, [facility] [place] [facility] [address] [id number] [place] [address]- 7116 Apr, [facility] [place] [facility] [address] [id number] [place] [address]- 7098 Apr, [facility] [place] [facility] [address] [id number] [place] [address]- 4321 Mar, [facility] [place] [facility] [address] [id number] [place] [address]- 3894 Mar, [facility] [place] [facility] [address] [id number] [place] [address]- 0077 Mar, [facility] [place] [facility] [address] [id number] [place] [address]- 6889 Mar, [facility] [place] [facility] [address] [id number] [place] [address]- 2655 Feb, [facility] [place] [facility] [address] [id number] [place] [address]- 7425 Feb, [facility] [place] [facility] [address] [id number] [place] [address]- 7883 Feb, [facility] [place] [facility] [address] [id number] [place] [address]- 8561 Feb, [facility] [place] [facility] [address] [id number] [place] [address]- 1848 Feb, [facility] [place] [facility] [address] [id number] [place] [address]- 4744 January, [facility] [address] [id number] [place] [address]- 8773 January, [facility] [place] [facility] [address] [id number] [place] [address]- 9590 January, [facility] [place] [facility] [address] [id number] [place] [address]- 7939 January, [facility] [place] [facility] [address] [id number] [place] [address]- 6250 January, [facility] [place] [facility] [address] [id number] [place] 9345 January, [facility] [place] [facility] [address] [id number] [place] [address]- 7304 Dec, [facility] [address] [id number] [place] [address]- 4509 Dec, [facility] [place] [facility] [address] [id number] [place] [address]- 6633 Dec, [facility] [place] [facility] [address] [id number] [place] [address]- 7956 Dec, [facility] [place] [facility] [address] [facility] [id number] [place] [address]- 2915 Dec, [facility] [place] [facility] [address] [id number] [place] [address]- 9954 Nov, [facility] [place] [facility] [address] [id number] [place] [address]- 2762 Nov, [facility] [place] [facility] [address] [id number] [place] [address]- 6155 Nov, [facility] [place] [facility] [address] [id number] [place] 2074 Nov, [facility] [place] [facility] [address] [facility] [id number] [place] [address]- 3268 Oct, [facility] [place] [facility] [address] [id number] [place] [address]- 7315 28 Oct, 2011 [facility] [place] [facility] [address] [id number] [place] [address]- 9156 24 Oct, 2011 [facility] [place] [facility] [address] [id number] [place] [address] 2546 13 Oct, 2011 [facility] [place] [facility] [address] [id number] [place] [address]- 9316 08 Oct, 2011 [facility] [place] [facility] [address] [id number] [place] [address]- 7519 Sep, [facility] [place] [facility] [address] [id number] [place] [address]- 7077 Sep, [facility] [place] [facility] [address] [id number] [place] [address]- 8901 Sep, [facility] [place] [facility] [address] [id number] [place] [address]- 5384 Sep, [facility] [place] [facility] [address] [id number] [place] [address]- 1360 Sep[facility] [place] [facility] [address] [id number] [place] [address]- 6949 Sep, [facility] [place] [facility] [address] [id number] [place] [address]- 7525 Aug, [facility] [place] [facility] [address] [id number] [place] [address]- 9584 Aug, [facility] [place] [facility] [address] [id number] [place] [address]- 0365 Aug, [facility] [place] [facility] [address] [id number] [place] [address]- 5605 Jul, [facility] [place] [facility] [address] [id number] [place] [address]- 4227 Jul, [facility] [place] [facility] [address] [id number] [place] [address]- 5976 Jul, [facility] [place] [facility] [address] [id number] [place] [address]- 6337 Jul, [facility] [place] [facility] [address] [id number] [place] [address]- 7619 Jun, [facility] [place] [facility] [address] [id number] [place] [address]- 9149 Jun, [facility] [place] [facility] [address] [id number] [place] [address]- 1099 Jun, [facility] [place] [facility] [address] [id number] [place] [address] Jun, [facility] [place] [facility] [address] [id number] [place] [address] Jun, [facility] [place] [facility] [address] [id number] [place] [address] Jun, [facility] [place] [facility] [address] [id number] [place] [address] Mar, [facility] [place] [facility] [address] [id number] [place] [address] Dec, [facility] [place] [facility] [address] [id number] [place] [address] Dec, [facility] [place] [facility] [address] [id number] [place] [address] Nov, [facility] [place] [facility] [address] [id number] [place] [address] 16 Nov, 2010 [facility] [place] [facility] [address] [id number] [place] [address] Sep, [facility] [place] [facility] [address] [id number] [place] [address] Aug, [facility] [place] [facility] [address] [id number] [place] [address] Aug, [facility] [place] [facility] [address] [id number] [place] [address] 29 Aug, 2010 [facility] [address] [id number] [place] [address] 29 Aug, 2010 [facility] [address] [id number] [place] [address] 27 Aug, 2010 [facility] [address] [id number] [place] [address] 14 Aug, 2010 [facility] [address] [id number] [place] [address] 08 Aug, 2010 [facility] [address] [id number] [place] [address] 08 Aug, 2010 [facility] [address] [facility] [id number] [place] [address] 47[address] Aug, [facility] [address] [facility] [id number] [place] [address] 25[address] Aug, [facility] [address] [facility] [id number] [place] [address] Aug, [facility] [address] [facility] [id number] [place] [address] 2546 Aug, [facility] [address] [facility] [id number] [place] [address] 30 Jul, 2010 [facility] [place] [facility] [address] [id number] [place] [address] 2546 30 Jul, 2010 [facility] [address] [facility] [id number] [place] [address] 2546 30 Jul, 2010 [facility] [place] [facility] [address] [facility] [id number] [place] [address] 2546 17 Jul, 2010 [facility] [address] [facility] [id number] [place] [address] 08 Jul, 2010 [facility] [address] [facility] [id number] [place] [address] Jul, [facility] [address] [id number] [place] [address] Jun, [facility] [place] [facility] [address] [id number] [place] [address] 14[address] Jun, [facility] [place] [facility] [address] [id number] [place] [address] 1583 Jun, [facility] [place] [facility] [address] [id number] [place] [address]- 7085 Jun, [facility] [place] [facility] [address] [id number] [place] [address]- [address] 16 Apr, 2010 [facility] [place] [facility] [address] [id number] [place] [address] Mar, [facility] [place] [facility] [address] [facility] [id number] [place] [address] Feb, [facility] [place] [facility] [address] [id number] [address] January, [facility] [place] [facility] [address] [id number] [place] [address] Dec, [facility] [place] [facility] [address] [facility] [id number] [address] Nov, [facility] [place] [facility] [address] [facility] [id number] [address] Aug, [facility] [place] [facility] [address] [id number] [address] Aug, [facility] [place] [facility] [address] [id number] [address] Aug, [facility] [place] [facility] [address] [id number] [address] Jul, [facility] [place] [facility] [address] [facility] [id number] [address] Jul, [facility] [place] [facility] [address] [id number] [address] Jul, [facility] [id number] [address] Jun, [facility] [id number] [address] Jun, [facility] [id number] [address] Jun, [facility] [id number] [place] [address] Jun, [facility] [id number] [place] [address]- [address] Jun, [facility] [id number] [place] [address]- [address]647 Jun, [facility] [id number] [place] [address]- [address] Apr, [facility] [id number] [address] Apr, [facility] [id number] [address] Feb, [facility] [id number] [address] January, [facility] [id number] [address] Dec, IMMUNIZATIONS No Known Immunizations SOCIAL HISTORY Never Assessed REASON FOR VISIT Controlled Med Refill PLAN OF CARE VITAL SIGNS MEDICATIONS Medication Instructions Dosage Frequency Start Date End Date Duration Status Percocet 10-325 MG Orally 4 times a day 1 tablet as needed Jun, 28 days Active RESULTS No Results PROCEDURES [...] tunnel release (Left) 2000 Surgical History EGD ([facility]) 2009 Surgical History colonoscopy 2009 ([facility]), 2013 ([place]) Surgical History heart cath: CAD w/ PTCA [...] History inability to urinate 09/16/15 Hospitalization History [facility] mental health early Hospitalization History hyperkalemia 10/2017 Hospitalization History fluid in lung
--- OUTSIDE RECORDS SUMMARY | 2018-08-08 13:38 | XMS REPORT ---
Author Author NOEMI WASHBURN [facility] Address [address] [place] [address] Care Team Providers Care Talent Development Analyst Name Role Phone NOEMI WASHBURN Unavailable PROBLEMS Type Condition ICD9-CM Code QMN50-PB Code Onset Dates Condition Status SNOMED Code Problem Chronic lymphocytic leukemia C91.10 Active 41918324 Problem Eye exam abnormal R93.8 Active 074994066 Problem Lymphocytosis D72.820 Active 52927763 Problem Eustachian tube dysfunction, unspecified laterality H69.80 Active 14362388 Problem Dysuria R30.0 Active 05876264 Problem Cough R05 Active 26028730 Problem Polyneuropathy associated with underlying disease G63 Active 899368710 Problem Hypokalemia E87.6 Active 79917661 Problem Bilateral primary osteoarthritis of knee M17.0 Active 267672470 Problem Benign prostatic hyperplasia with lower urinary tract symptoms, unspecified morphology N40.1 Active 227247151 Problem Retinal edema H35.81 Active 6472368 Problem 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 Active 604209433 Problem Anemia of chronic illness D63.8 Active 906809591 Problem Other chronic pain G89.29 Active 45609364 Problem Other iron deficiency anemia D50.8 Active 49596062 Problem Leukocytosis D72.829 Active 515429053 Problem Chronic pain G89.29 Active 06771374 Problem DM neuro manif type II E11.49 Active 78623858 Problem Bipolar disorder, in partial remission, most recent episode depressed F31.75 Active 86801969 Problem Falling R29.6 Active 662545216 Problem Primary osteoarthritis of right knee M17.11 Active 300825523477382 Problem Pure hypercholesterolemia E78.00 Active 154472842 Problem Bipolar I disorder, most recent episode (or current) mixed, moderate F31.62 Active 18500002 Problem Insomnia, unspecified type G47.00 Active 845406293 Problem Diabetes E11.9 Active 80600714 Problem Reactive airway disease J45.909 Active 849609943361 Problem Essential hypertension I10 Active 58051639 Problem Diabetic polyneuropathy associated with type 2 diabetes mellitus E11.42 Active 82154945 Problem Anxiety F41.9 Active 69290811 Problem Morbid obesity E66.01 Active 884896008 ALLERGIES No Information ENCOUNTERS Encounter Location Date Diagnosis [facility] [address] [address] Jun, [facility] [address] [address] Jun, [place] [address] [address]- [address]69 Jun, [place] [address] [address]- 9649 Jun, [place] [address] 32059- 7135 Jun, Forgetfulness R68.89 ; Pre-syncope R55 ; Localized edema R60.0 ; Other iron deficiency anemia D50.8 and BMI 50.0-59.9, adult Z68.43 [place] [address] [address]- [address] Jun, Chronic pain G89.29 [place] [address] [place] [id number] [place] [address] 94047- 9529 Jun, Chronic pain G89.29 [place] [address] [place] [id number] [place] [address] 13684- 3266 Jun, Bipolar I disorder, most recent episode (or current) mixed, moderate F31.62 [place] [address] 7[address]40- 8341 May, Chronic pain G89.29 [facility] [address] [place] [id number] [place] [address] 34177- 2372 Apr, [place] [address] 44606- 0972 Apr, Chronic pain G89.29 [facility] [id number] [place] [address] 56033- 8510 Apr, Primary osteoarthritis of right knee M17.11 [facility] [address] [address] [id number] [place] [address] 62791- 9663 Mar, [facility] [address] [address] [id number] [place] [address] 40002- 2785 Mar, BMI 50.0-59.9, adult Z68.43 and Bipolar disorder, in partial remission, most recent episode depressed F31.75 [place] [address] 94175- 6983 Mar, Diabetes E11.9 ; Pure hypercholesterolemia E78.00 ; Essential hypertension I10 ; Nausea with vomiting, unspecified R11.2 and Headache, unspecified headache type R51 [place] [address] 53298- 7152 Mar, Bipolar I disorder, most recent episode (or current) mixed, moderate F31.62 [place] [address] [place] [id number] [place] [address] 72400- 1200 Mar, Bipolar I disorder, most recent episode (or current) mixed, moderate F31.62 [place] [address] [place] [id number] [place] [address] 52239- 6075 Mar, Chronic pain G89.29 [place] [address] [place] [id number] [place] [address] 96204- 9380 Mar, Bipolar I disorder, most recent episode (or current) mixed, moderate F31.62 [place] [address] [place] [id number] [place] [address] 00721- 7531 Feb, Bipolar I disorder, most recent episode (or current) mixed, moderate F31.62 [place] [address] [place] [id number] [place] [address] 32944- 5427 Feb, Chronic pain G89.29 [place] [address] [place] [address] Feb, Decubitus ulcer of right foot, stage 3 L89.893 and BMI 50.0- 59.9, adult Z68.43 [facility] [address] [id number] [place] [address] 83732- 5650 Feb, Bipolar I disorder, most recent episode (or current) mixed, moderate F31.62 [facility] [address] [place] [id number] [place] [address] 21017- 2041 Feb, [place] [address] [place] [id number] [place] [address] 28411- 0853 January, [place] [address] [place] [id number] [place] [address] 32745- 9832 January, Chronic pain G89.29 [place] [address] [place] [id number] [place] [address] 85037- 0610 January, Bipolar I disorder, most recent episode (or current) mixed, moderate F31.62 [place] [address] [place] [id number] [place] [address] 06156- 2927 January, Bipolar I disorder, most recent episode (or current) mixed, moderate F31.62 [place] [address] [place] [address] 14130- 5676 Dec, Bipolar I disorder, most recent episode (or current) mixed, moderate F31.62 and BMI 50.0-59.9, adult Z68.43 [facility] [address] [place] [id number] [place] [address] 81345- 3612 Dec, Bipolar I disorder, most recent episode (or current) mixed, moderate F31.62 [place] [address] [place] [id number] [place] [address] 47758- 9685 Dec, Chronic pain G89.29 [facility] [address] [id number] [place] [address] 46666- 2298 Dec, DM neuro manif type II E11.49 ; Right flank pain R10.9 ; 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 ; Encounter for medication monitoring Z51.81 and BMI 50.0-59.9, adult Z68.43 [place] [address] [place] [id number] [place] [address] 51197- 3985 Dec, Bipolar I disorder, most recent episode (or current) mixed, moderate F31.62 [place] [address] [place] [id number] [place] [address] 25664- 2190 Nov, Bipolar I disorder, most recent episode (or current) mixed, moderate F31.62 [place] [address] [place] [id number] [place] [address] 50747- 6309 Nov, Chronic pain G89.29 [place] [address] [place] [id number] [place] [address] 00538- 8781 Nov, Bipolar I disorder, most recent episode (or current) mixed, moderate F31.62 [place] [address] [place] [id number] [place] [address] 93405- 7320 Nov, Hypokalemia E87.6 [place] [address] [place] [id number] [place] [address] 23386- 9041 Nov, Bipolar I disorder, most recent episode (or current) mixed, moderate F31.62 [place] [address] [place] [id number] [place] [address] 27242- 5336 Oct, Chronic pain G89.29 [place] [address] [place] [id number] [place] [address] 41123- 0080 Oct, BMI 50.0-59.9, adult Z68.43 and Bipolar I disorder, most recent episode (or current) mixed, moderate F31.62 [place] [address] [place] [id number] [place] [address] 98313- 8397 Oct, Bipolar I disorder, most recent episode (or current) mixed, moderate F31.62 [place] [address] [place] [id number] [place] [address] 78443- 3195 Oct, [facility] [address] [address]- 3281 Oct, Hypokalemia E87.6 [facility] [address] 6[address]- 6894 Oct, DM neuro manif type II E11.49 [facility] [address] 00321- 5422 Oct, Bipolar I disorder, most recent episode (or current) mixed, moderate F31.62 [place] [address] 91433- 5742 Oct, Bipolar I disorder, most recent episode (or current) mixed, moderate F31.62 [place] [address] 94154- 1523 Oct, Hyperkalemia E87.5 ; Falling R29.6 ; BMI 50.0-59.9, adult Z68.43 and Acute left ankle pain M25.572 [place] [address] 38933- 9263 Oct, DM neuro manif type II E11.49 [place] [address] 20468- 7275 Oct, [place] [address] 92023- 4106 Sep, Chronic pain G89.29 [place] [address] 11179- 3479 Sep, [place] [address] 74028- 9046 Sep, Bilateral primary osteoarthritis of knee M17.0 [place] [address] 89455- 8056 Sep, Generalized edema R60.1 [place] [address] [place] [address]- 6008 16 Sep, 2017 Bipolar I disorder, most recent episode (or current) mixed, moderate F31.62 [place] [address] 08060- 5648 15 Sep, 2017 Hypoxia R09.02 ; Other hypervolemia E87.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 ; Anemia of chronic illness D63.8 and BMI 50.0- 59.9, adult Z68.43 [place] [address] 05[address]- 9727 Sep, [place] [address] 41776- 2880 Sep, Bipolar I disorder, most recent episode (or current) mixed, moderate F31.62 [place] [address] 05530- 9169 Aug, Chronic pain G89.29 [place] [address] 58227- 0008 Aug, Generalized edema R60.1 [place] [address] 52974- 8502 Aug, [place] [address] [place] [id number] [place] [address] 32243- 1438 Aug, [place] [address] 13182- 3510 14 Aug, 2017 Bipolar I disorder, most recent episode (or current) mixed, moderate F31.62 [place] [address] 40354- 7357 07 Aug, 2017 Bipolar I disorder, most recent episode (or current) mixed, moderate F31.62 [place] [address] 40176- 5069 04 Aug, 2017 Chronic pain G89.29 [facility] [address] [address]- [address] Jul, Bipolar I disorder, most recent episode (or current) mixed, moderate F31.62 [facility] [address] [place] [address] 52612- 6653 Jul, Bipolar I disorder, most recent episode (or current) mixed, moderate F31.62 and BMI 60.0-69.9, adult Z68.44 [facility] [address] [place] [id number] [place] [address] 86821- 8378 Jul, Bipolar I disorder, most recent episode (or current) mixed, moderate F31.62 [facility] [address] [place] [id number] [place] [address] 09480- 1687 Jul, Chronic pain G89.29 [facility] [address] [place] [id number] [place] [address] 86010- 6596 Jul, Bipolar I disorder, most recent episode (or current) mixed, moderate F31.62 [facility] [address] [place] [id number] [place] [address] 17009- 4535 Jun, Polyneuropathy associated with underlying disease G63 and Diabetes E11.9 [facility] [address] [place] [id number] [place] [address] 62721- 5934 Jun, Bipolar I disorder, most recent episode (or current) mixed, moderate F31.62 [facility] [address] [place] [address] 84066- 0598 Jun, Chronic pain G89.29 [facility] [address] [place] [address] 92313- 6351 May, Bipolar I disorder, most recent episode (or current) mixed, moderate F31.62 [facility] [address] [place] [address] 71195- 7538 May, Bipolar I disorder, most recent episode (or current) mixed, moderate F31.62 [facility] [address] [place] [id number] [place] [address] 53128- 4996 20 May, 2017 Diabetic polyneuropathy associated with type 2 diabetes mellitus E11.42 [facility] [address] [place] [id number] [place] [address] 77087- 0142 18 May, 2017 Bipolar I disorder, most recent episode (or current) mixed, moderate F31.62 [facility] [address] [place] [id number] [place] [address] 84375- 7746 13 May, 2017 Bipolar I disorder, most recent episode (or current) mixed, moderate F31.62 [facility] [address] [place] [id number] [place] [address] 67696- 6617 12 May, 2017 Chronic pain G89.29 [facility] [address] [place] [id number] [place] [address] 81367- 5652 30 Apr, 2017 Bipolar I disorder, most recent episode (or current) mixed, moderate F31.62 [facility] [address] [place] [id number] [place] [address] 00163- 1705 Apr, [facility] [address] [place] [id number] [place] [address] 07082- 0924 Apr, Chronic pain G89.29 and DM neuro manif type II E11.49 [facility] [address] [place] [id number] [place] [address] 15097- 3919 Apr, [facility] [address] [place] [id number] [place] [address] 94257- 4937 Apr, Bipolar I disorder, most recent episode (or current) mixed, moderate F31.62 [facility] [address] [place] [id number] [place] [address] 67989- 5402 14 Apr, 2017 Chronic pain G89.29 [facility] [address] [place] [id number] [place] [address] 91465- 6598 Apr, Iliotibial band syndrome, left M76.32 [facility] [address] [place] [id number] [place] [address] 72201- 6987 Apr, Bipolar I disorder, most recent episode (or current) mixed, moderate F31.62 [facility] [address] [address]- 1021 Mar, Bipolar I disorder, most recent episode (or current) mixed, moderate F31.62 [facility] [address] [place] [address] 65794- 5819 Mar, Bipolar I disorder, most recent episode (or current) mixed, moderate F31.62 [facility] [address] [place] [id number] [place] [address] 08974- 7456 Mar, [facility] [address] [place] [id number] [place] [address] 18314- 4464 Mar, Bipolar I disorder, most recent episode (or current) mixed, moderate F31.62 [place] [address] [place] [id number] [place] [address] 59637- 7705 Mar, Chronic pain G89.29 [facility] [address] [place] [id number] [place] [address] 41151- 5591 Mar, Bipolar I disorder, most recent episode (or current) mixed, moderate F31.62 [place] [address] [place] [address] 98695- 2065 Mar, Bipolar I disorder, most recent episode (or current) mixed, moderate F31.62 [place] [address] [place] [address] 53771- 0499 Mar, Acute pain of left knee M25.562 ; Left hip pain M25.552 ; Generalized edema R60.1 and Tongue swelling R22.0 [place] [address] [place] [id number] [place] [address] 24565- 7916 Mar, [facility] [address] [place] [id number] [place] [address] 60167- 7290 Feb, Chronic pain G89.29 [facility] [address] [place] [id number] [place] [address] 61241- 2007 Feb, Diabetes E11.9 [facility] [address] [address]- 8241 January, Chronic pain G89.29 [facility] [address] [place] [id number] [place] [address] 41790- 1542 January, [facility] [address] [place] [id number] [place] [address] 30280- 7965 January, Bipolar I disorder, most recent episode (or current) mixed, moderate F31.62 [facility] [address] [place] [id number] [place] [address] 05285- 8801 Dec, Bipolar I disorder, most recent episode (or current) mixed, moderate F31.62 [facility] [address] [place] [id number] [place] [address] 34856- 5101 Dec, Chronic pain G89.29 [facility] [address] [place] [id number] [place] [address] 23042- 9577 Dec, Bipolar I disorder, most recent episode (or current) mixed, moderate F31.62 [facility] [address] [place] [id number] [place] [address] 85633- 5098 Dec, Diabetes E11.9 ; Essential hypertension I10 ; Chronic pain G89.29 and Morbid obesity E66.01 [facility] [address] [place] [address] 81327- 0769 Dec, [facility] [address] [place] [id number] [place] [address] 08830- 2804 Dec, Bipolar I disorder, most recent episode (or current) mixed, moderate F31.62 [facility] [address] [place] [id number] [place] [address] 55902- 4911 Dec, Bipolar I disorder, most recent episode (or current) mixed, moderate F31.62 [facility] [address] [place] [id number] [place] [address] 70539- 3544 Nov, Chronic pain G89.29 [facility] [address] [id number] [address]- 9240 Nov, Bipolar I disorder, most recent episode (or current) mixed, moderate F31.62 [facility] [address] [place] [address]- 5756 Nov, [facility] [address] [address]- 0260 Nov, Bipolar I disorder, most recent episode (or current) mixed, moderate F31.62 [facility] [address] [address]- 1167 Nov, Bipolar I disorder, most recent episode (or current) mixed, moderate F31.62 [facility] [address] [place] [address] 66295- 4239 Nov, [facility] [id number] [place] [address] 77455- 0443 Nov, [facility] [id number] [place] [address] 94172- 9459 Nov, [facility] [id number] [place] [address] 36951- 2860 Oct, Chronic pain G89.29 [facility] [address] [address]- 1711 Oct, Bipolar I disorder, most recent episode (or current) mixed, moderate F31.62 [facility] [address] [address]- 8881 Oct, [facility] [address] [place] [address] 88086- 3291 Oct, Chronic pain G89.29 ; Diabetes E11.9 ; Anxiety F41.9 and 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 [facility] [address] [address]- 9163 Oct, [facility] [address] [place] [id number] [place] [address] 36212- 1462 Oct, Diabetes E11.9 [facility] [address] [id number] [place] [address] 119291- 7036 Oct, Bipolar I disorder, most recent episode (or current) mixed, moderate F31.62 [facility] [id number] [place] [address] 04485- 5756 Sep, Chronic pain G89.29 [facility] [id number] [place] [address] 03792- 3486 Sep, Chronic pain G89.29 [facility] [id number] [place] [address] 254588- 1326 Aug, Chronic pain G89.29 [facility] [id number] [place] [address] 32385- 7777 Jul, [facility] [id number] [place] [address] 78828- 8787 Jul, Diabetes E11.9 [facility] [id number] [place] [address] 98114- 2117 Jul, Chronic pain G89.29 [facility] [id number] [place] [address] 82280- 0611 Jul, Bipolar I disorder, most recent episode (or current) mixed, moderate F31.62 [facility] [id number] [place] [address] 47041- 1428 Jun, Bipolar I disorder, most recent episode (or current) mixed, moderate F31.62 [facility] [id number] [place] [address] 37736- 4336 Jun, [facility] [id number] [place] [address] 03602- 7905 Jun, Bipolar I disorder, most recent episode (or current) mixed, moderate F31.62 [facility] [id number] [place] [address] 77863- 9193 30 May, 2016 Insomnia, unspecified type G47.00 [facility] [id number] [place] [address] 04449- 3548 May, Bipolar I disorder, most recent episode (or current) mixed, moderate F31.62 [place] [id number] [place] [address] 86669- 4919 14 May, 2016 [place] [address] 01722- 7128 May, Bipolar I disorder, most recent episode (or current) mixed, moderate F31.62 [place] [address] 97853- 5556 May, Diabetes E11.9 and Essential hypertension I10 [place] [address] 26759- 0597 Apr, Chronic pain G89.29 [place] [address] 15822- 2005 Apr, Bipolar I disorder, most recent episode (or current) mixed, moderate F31.62 [place] [id number] [place] [address] 66190- 2744 Apr, [place] [id number] [place] [address] 03801- 0327 Apr, [place] [address] 48049- 3639 Mar, Chronic pain G89.29 ; Headache, unspecified headache type R51 ; Neuropathy G62.9 ; Pain of right hip joint M25.551 and Essential hypertension I10 [place] [id number] [place] [address] 99489- 8975 Mar, Chronic pain G89.29 [facility] [id number] [place] [address] 01765- 4010 Mar, Bipolar I disorder, most recent episode (or current) mixed, moderate F31.62 [facility] [id number] [place] [address] 20120- 5372 Feb, Bipolar I disorder, most recent episode (or current) mixed, moderate F31.62 and Insomnia, unspecified type G47.00 [facility] [id number] [place] [address] 34325- 0361 Feb, Chronic pain G89.29 [facility] [address] [id number] Feb, Bipolar I disorder, most recent episode (or current) mixed, moderate F31.62 [place] [address] [id number] January, Bipolar I disorder, most recent episode (or current) mixed, moderate F31.62 [place] [id number] [place] [address] [id number] January, Chronic pain G89.29 [place] [id number] [place], [place] [address] 29601- 3974 January, Chronic pain G89.29 and Essential hypertension I10 [place] [address] 47358- 2451 January, Bipolar I disorder, most recent episode (or current) mixed, moderate F31.62 [place] [address] [place] [id number] [place] [address] 84864- 9292 Dec, [place] [address] [address] [id number] [place] [address] 64212- 8179 Dec, [facility] [address] [place] [address] [id number] [place] [address] 43710- 9422 Dec, [place] [address] 11499- 5268 Dec, [facility] [address] [address] [id number] [place] [address] 32801- 5107 Nov, Reactive airway disease J45.909 [place] [address], [place] [address] 8761 Nov, [place] [address] [address] [id number] [place] [address] 88276- 4865 Nov, [facility] [address] [place] [address] [id number] [place] [address] 22088- 3959 Nov, [place] [address] [address] [id number] [place] [address] 35107- 9647 Nov, [place] [address] [address] [id number] [place] [address] 61974- 3269 Nov, Onychomycosis B35.1 ; Hammertoe M20.40 ; Blythe or callus L84 and DM neuro manif type II E11.49 [place] [id number] [place] [address] 22288- 4485 Nov, Chronic pain G89.29 ; Leukocytosis D72.829 and Diabetes E11.9 [place] [address] [address] [id number] [place] [address] 11392- 4019 Nov, [place] [address] [id number] [place] [address] 17014- 3762 Oct, Bronchitis J40 [place] [address] [address] [id number] [place] [address] 35809- 3429 Oct, [place] [address] [address] [id number] [place] [address] 11521- 5529 Oct, [place] [address] [id number] [place] [address] 42871- 5702 Oct, Mastoiditis, unspecified laterality H70.90 and Type 2 diabetes mellitus with complication E11.8 [place] [id number] [place] [address] 90685- 3744 Sep, [place] [id number] [place] [address] 55428- 0460 Sep, Dysuria R30.0 ; Cough R05 ; Benign prostatic hyperplasia with lower urinary tract symptoms, unspecified morphology N40.1 ; Hypokalemia E87.6 and Eustachian tube dysfunction, unspecified laterality H69.80 [facility] [id number] [place] [address] 91062- 1317 Sep, Moderate mixed bipolar I disorder F31.62 [facility] [address] [id number] [place] [address] 29893- 2011 Sep, Hypokalemia E87.6 [facility] [address] [id number] [place] [address] 51607- 0823 Sep, [facility] [id number] [place] [address] 60245- 5496 Sep, Upper respiratory tract infection, unspecified type J06.9 [facility] [id number] [place] [address] 90525- 9164 Aug, [facility] [id number] [place] [address] 48511- 6724 Aug, Dysuria R30.0 [facility] [id number] [place] [address] 04792- 3506 Aug, [facility] [address] [id number] [place] [address] 11926- 3312 Jul, [facility] [id number] [place] [address] 28134- 7775 Jul, [facility] [address] [id number] [place] [address] 87151- 0544 Jul, [facility] [address] [id number] [place] [address] 03228- 8810 Jul, [facility] [id number] [place] [address] 28292- 9522 Jun, [facility] [address] [place] [address] [id number] [place] [address] 92166- 5072 Jun, [facility] [address], [place] [address]- 5048 Jun, [facility] [id number] [place] [address] 22225- 4343 May, [facility] [address] [place] [address] [id number] [place] [address] 07450- 6929 May, Bipolar I disorder, most recent episode (or current) mixed, moderate 296.62 [facility] [address] [place] [address] [id number] [place] [address] 86587- 4216 May, [facility] [id number] [place] [address] 61580- 4675 May, Bipolar I disorder, most recent episode (or current) mixed, moderate 296.62 and Major depressive disorder, recurrent episode, severe, specified as with psychotic behavior 296.34 [facility] [address] [place] [address] [id number] [place] [address] 36994- 5368 May, Bipolar I disorder, most recent episode (or current) mixed, moderate 296.62 [facility] [id number] [place] [address] 52890- 3043 May, [facility] [address] [place] [address] [id number] [place] [address] 74989- 7660 Apr, [facility] [id number] [place] [address] 43544- 4589 Apr, [facility] [address] [place] [address] [id number] [place] [address] 45932- 2886 Apr, Unspecified disorder of kidney and ureter 593.9 and Diabetes mellitus type 2, uncontrolled 250.02 [facility] [id number] [place] [address] 89964- 5291 Apr, [facility] [address] [place] [address] [id number] [place] [address] 66403- 7447 Apr, [facility] [id number] [place] [address] 60937- 6740 Apr, [facility] [address], [place] [address]- 3474 Apr, [facility] [id number] [place] [address] 99839- 1507 Apr, Diabetes mellitus type II, uncontrolled 250.02 [facility] [address], [place] [address]- 9897 Apr, [facility] [address] [place] [address] [id number] [place] [address] 83929- 2192 Mar, [facility] [id number] [place] [address] 40835- 7961 Mar, [facility] [address] [place] [address] [id number] [place] [address] 45506- 5044 Mar, [facility] [id number] [place] [address] 07540- 8649 Mar, Major depressive disorder, recurrent episode, severe, specified as with psychotic behavior 296.34 and Bipolar I disorder, most recent episode (or current) mixed, moderate 296.62 [facility] [id number] [place] [address] 61299- 3720 Mar, Diabetes 250.00 ; Anuria 788.5 ; Nausea and vomiting 787.01 and Diarrhea 787.91 [facility] [address], [place] [address]- 0837 Mar, Diabetes 250.00 [facility] [address], [place] [address]- 0577 Mar, [facility] [address] [place] [id number] [address]- 4778 Mar, Diabetes 250.00 [facility] [address], [place] [address]- 0563 Mar, [facility] [address], [place] [address]- 2183 Mar, [facility] [address] [id number] [address]- 4141 Mar, [facility] [id number] [place] [address] 27730- 1357 Mar, [facility] [address] [place] [id number] [place] [address] 08670- 0744 Mar, Bipolar I disorder, most recent episode (or current) mixed, moderate 296.62 and Major depressive disorder, recurrent episode, severe, specified as with psychotic behavior 296.34 [place] [address] [place] [id number] [place] [address] 47738- 3722 Mar, Magnesium deficiency 275.2 ; Hypokalemia 276.8 ; Nausea & vomiting 787.01 and Diabetes mellitus type 2, uncontrolled 250.02 [place] [address] [place] [id number] [place] [address] 39508- 0997 Feb, [place] [address] [place] [id number] [place] [address] 80211- 4676 Feb, Bipolar I disorder, most recent episode (or current) mixed, moderate 296.62 [place] [id number] [place] [address] 75416- 9945 Feb, Nausea and vomiting 787.01 ; Left elbow pain 719.42 ; Anuria 788.5 and Diabetes 250.00 [place] [address], [place] [address]- 8904 Feb, [place] [address] [place] [id number] [place] [address] 04770- 9412 Feb, Hypopotassemia 276.8 and Hypokalemia 276.8 [place] [address] [place] [id number] [place] [address] 75849- 3748 Feb, Hypopotassemia 276.8 and Hypokalemia 276.8 [place] [address], [place] [address]- 1383 Feb, Seborrheic keratoses 702.19 [place] [address], [place] [address]- 2946 Feb, Hypopotassemia 276.8 and Low magnesium levels 275.2 [facility] [id number] [address]- 2687 January, [facility] [address] [id number] [address]- 2111 January, [facility] [address] [place] [address] [id number] [place] [address] 07653- 7923 January, [facility] [address] [place] [id number] [place] [address] 71440- 8995 January, Scalp lesion 709.9 [facility] [address] [place] [id number] [place] [address] 14574- 1583 January, [facility] [address] [place] [id number] [place] [address] 44172- 5365 Dec, Tear of medial cartilage or meniscus of knee, current 836.0 and 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 [facility] [address], [place] [address]- 7119 Dec, [facility] [id number] [address]- 3964 Dec, [facility] [address], [place] [address]- 0696 Dec, Squamous cell carcinoma, 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 [facility] [address], [place] [address]- 0598 Dec, [facility] [address], [place] [address]- 8725 Dec, [facility] [address], [place] [address]- 1572 Nov, [facility] [address], [place] [address]- 1725 Nov, [facility] [address] [place] [id number] [place] [address]- 2410 Nov, 2014 [facility] [place] [facility] [address] [id number] [place] [address]- 8917 Nov, [facility] [place] [facility] [address] [id number] [place] [address]- 1062 Nov, 2014 [facility] [place] [facility] [address] [id number] [place] [address]- 7438 Nov, 2014 [facility] [place] [facility] [address] [id number] [place] [address]- 6292 Nov, [facility] [place] [facility] [address] [id number] [place] [address]- 1925 Nov, [facility] [place] [facility] [address] [id number] [place] [address]- 8050 Nov, [facility] [place] [facility] [address] [id number] [place] [address]- 8035 Nov, 2014 [facility] [place] [facility] [address] [id number] [place] [address]- 1304 Nov, [facility] [place] [facility] [address] [id number] [place] [address]- 5038 Nov, [facility] [place] [facility] [address] [id number] [place] [address]- 1697 Oct, 2014 [facility] [place] [facility] [address] [id number] [place] [address]- 7332 Oct, 2014 [facility] [place] [facility] [address] [id number] [place] [address]- 6539 Oct, 2014 [facility] [place] [facility] [address] [id number] [place] [address]- 4977 Oct, 2014 [facility] [place] [facility] [address] [id number] [place] [address]- 2585 Oct, 2014 [facility] [place] [facility] [address] [id number] [place] [address]- 0909 Oct, [facility] [place] [facility] [address] [id number] [place] [address]- 6231 Oct, [facility] [place] [facility] [address] [id number] [place] 1138 Oct, [facility] [place] [facility] [address] [id number] [place] [address]- 4780 Oct, [facility] [place] [facility] [address] [id number] [place] [address]- 8493 Sep, [facility] [place] [facility] [address] [id number] [place] [address]- 6119 Sep, [facility] [place] [facility] [address] [id number] [place] [address]- 0580 Sep, [facility] [place] [facility] [address] [id number] [place] [address]- 3732 Sep, [facility] [place] [facility] [address] [id number] [place] [address]- 2198 Sep, [facility] [place] [facility] [address] [id number] [place] [address]- 9634 Sep, [facility] [place] [facility] [address] [id number] [place] [address]- 9433 Sep, [facility] [place] [facility] [address] [id number] [address]- 4962 Sep, [facility] [place] [facility] [address] [id number], [place] [address]- 1007 Sep, [facility] [place] [facility] [address] [id number], [place] [address]- 0387 Sep, [facility] [place] [facility] [address] [id number], [place] [address]- 1874 Sep, [facility] [place] [facility] [address] [id number] [place] [address]- 2699 Sep, [facility] [place] [facility] [address] [id number] [place] [address]- 1607 07 Sep, 2014 [facility] [address] [id number] [place] [address]- 5383 Sep, [facility] [address] [id number] [place] [address]- 8661 Sep, [facility] [address] [id number] [place] [address]- 3018 Sep, [facility] [address] [id number] [place] [address]- 1781 Aug, [facility] [address] [id number] [place] [address]- 3921 Aug, [facility] [address] [id number] [place] [address]- 0722 Aug, [facility] [address] [id number] [place] [address]- 8171 Aug, [facility] [address] [id number] [place] [address]- 9058 Aug, [facility] [address] [id number] [place] [address]- 2153 Aug, [facility] [address] [id number] [place] [address]- 5647 Aug, [facility] [address] [id number] [place] [address]- 7094 Aug, [facility] [address] [id number] [place] [address]- 5494 Aug, [facility] [address] [id number] [place] [address]- 4768 Aug, [facility] [address] [id number] [place] 8097 Aug, [facility] [place] [id number] Aug, [facility] [place] [facility] [address] [id number] [place] [address]- 3755 Aug, [facility] [place] [facility] [address] [id number] [place] [address]- 1894 Aug, [facility] [place] [facility] [address] [id number] [place] [address]- 1427 Aug, [facility] [place] [facility] [address] [id number] [place] [address]- 2421 Aug, [facility] [place] [facility] [address] [id number] [place] [address]- 9710 Aug, [facility] [place] [facility] [address] [id number] [place] [address]- 9891 Aug, [facility] [place] [facility] [address] [id number] [place] [address]- 9553 Aug, [facility] [place] [facility] [address] [id number] [place] [address]- 4090 Aug, [facility] [place] [facility] [address] [id number] [place] [address]- 0109 Aug, [facility] [place] [facility] [address] [id number] [place] [address]- 0731 Aug, [facility] [place] [facility] [address] [id number] [place] [address]- 5999 Aug, [facility] [place] [facility] [address] [id number] [place] [address]- 9956 Aug, [facility] [place] [facility] [address] [id number] [place] [address]- 1284 Aug, [facility] [place] [facility] [address] [id number] [place] [address]- 2134 Aug, [facility] [place] [facility] [address] [id number] [place] [address]- 3179 Aug, [facility] [place] [facility] [address] [id number], [place] [address]- 1976 Aug, [facility] [place] [facility] [address] [id number] [place] 9647 Aug, [facility] [place] [facility] [address] [id number] [place] [address]- 7520 Aug, [facility] [place] [facility] [address] [facility] [id number] [place] [address]- 2814 Jul, [facility] [place] [facility] [address] [id number] [place] [address]- 1422 Jul, [facility] [place] [facility] [address] [id number] [place] [address]- 5874 Jul, [facility] [place] [facility] [address] [id number] [place] [address]- 0034 Jul, [facility] [place] [facility] [address] [id number] [place] [address]- 1469 Jul, [facility] [place] [facility] [address] [id number] [place] [address]- 7339 Jul, [facility] [place] [facility] [address] [id number] [place] [address]- 7274 Jul, [facility] [place] [facility] [address] [id number] [place] [address]- 5294 Jul, [facility] [place] [facility] [address] [id number], [place] [address]- 3659 Jul, [facility] [place] [facility] [address] [id number], [place] [address]- 4510 Jul, [facility] [place] [facility] [address] [id number] [place] [address]- 4690 Jun, [facility] [place] [facility] [address] [id number] [place] [address]- 0650 Jun, [facility] [place] [facility] [address] [id number] [place] [address]- 6257 Jun, [facility] [place] [facility] [address] [id number] [place] [address]- 8264 16 Jun, 2014 [facility] [place] [facility] [address] [id number] [place] [address]- 8086 15 Jun, 2014 [facility] [place] [facility] [address] [id number] [place] [address]- 9336 15 Jun, 2014 [facility] [place] [facility] [address] [id number] [place] [address]- 6202 05 Jun, 2014 [facility] [place] [facility] [address] [id number] [place] [address]- 0494 Jun, [facility] [place] [facility] [address] [id number] [place] [address]- 8860 Jun, [facility] [place] [facility] [address] [id number] [place] [address]- 6305 Jun, [facility] [place] [facility] [address] [id number] [place] [address]- 3415 29 May, 2013 [facility] [place] [facility] [address] [id number] [place] [address]- 1515 29 Sep, 2013 [facility] [place] [facility] [address] [id number] [place] [address]- 2549 26 Sep, 2013 [facility] [place] [facility] [address] [id number] [place] [address]- 2543 26 Sep, 2013 [facility] [place] [facility] [address] [id number] [place] [address] 2546 17 Sep, 2013 [facility] [place] [facility] [address] [id number] [place] [address]- 2549 17 Sep, 2013 [facility] [place] [facility] [address] [id number] [place] [address] 2547 15 Sep, 2013 [facility] [place] [facility] [address] [id number] [place] [address]- 2545 15 Sep, 2013 [facility] [place] [facility] [address] [id number] [place] [address]- 2546 15 May, 2013 [facility] [place] [facility] [address] [id number] [place] [address]- 8530 15 May, 2013 [facility] [place] [facility] [address] [id number] [place] [address] 10 May, 2013 [facility] [place] [facility] [address] [id number] [place] [address] 10 May, 2013 [facility] [place] [facility] [address] [id number] [place] [address] 09 May, 2013 [facility] [place] [facility] [address] [id number] [place] [address] May, 2013 [facility] [place] [facility] [address] [id number] [place] [address] May, 2013 [facility] [place] [facility] [address] [id number] [place] [address] May, 2013 [facility] [place] [facility] [address] [id number] [place] [address] Apr, [facility] [place] [facility] [address] [id number] [place] [address] Apr, [facility] [place] [facility] [address] [id number] [place] [address] Apr, [facility] [place] [facility] [address] [id number] [place] [address] Apr, [facility] [place] [facility] [address] [id number] [place] [address] Apr, [facility] [place] [facility] [address] [id number] [place] [address] Apr, [facility] [place] [facility] [address] [id number] [place] [address] Apr, [facility] [place] [facility] [address] [id number] [place] [address] Apr, [facility] [place] [facility] [address] [id number] [place] [address] Apr, [facility] [place] [facility] [address] [id number] [place] [address] Apr, [facility] [place] [facility] [address] [id number] [place] [address] Apr, [facility] [place] [facility] [address] [id number] [place] [address]- [address] Apr, [facility] [place] [facility] [address] [id number] [place] [address] Apr, [facility] [place] [facility] [address] [id number] [place] [address] Apr, [facility] [place] [facility] [address] [id number] [place] [address] Apr, [facility] [place] [facility] [address] [id number] [place] [address] Mar, [facility] [place] [facility] [address] [id number] [place] [address] Mar, [facility] [place] [facility] [address] [id number] [place] [address]- [address] Mar, [facility] [place] [facility] [address] [id number] [place] [address] Mar, [facility] [place] [facility] [address] [id number] [place] [address] Mar, [facility] [place] [facility] [address] [id number] [place] [address] Mar, [facility] [place] [facility] [address] [id number] [place] [address] Mar, [facility] [place] [facility] [address] [id number] [place] [address]- [address] Mar, [facility] [place] [facility] [address] [id number] [place] [address] Mar, [facility] [place] [facility] [address] [id number] [place] [address] Mar, 2013 [facility] [place] [facility] [address] [id number] [place] [address] Mar, 2013 [facility] [place] [facility] [address] [id number] [place] [address] Mar, 2013 [facility] [place] [facility] [address] [id number] [place] [address] Mar, 2013 [facility] [place] [facility] [address] [id number] [place] [address] Mar, 2013 [facility] [place] [facility] [address] [id number] [place] [address] Mar, 2013 [facility] [place] [facility] [address] [id number] [place] [address] Mar, 2013 [facility] [place] [facility] [address] [id number] [place] [address] Mar, 2013 [facility] [place] [facility] [address] [id number] [place] [address] Mar, [facility] [place] [facility] [address] [id number] [place] [address] Feb, [facility] [place] [facility] [address] [id number] [place] [address] Feb, [facility] [place] [facility] [address] [id number] [place] [address] Feb, [facility] [place] [facility] [address] [id number] [place] [address] Feb, [facility] [place] [facility] [address] [id number] [place] [address] Feb, [facility] [place] [facility] [address] [id number] [place] [address]- 09[address] Feb, [facility] [place] [facility] [address] [id number] [place] [address]- 1669 Feb, [facility] [place] [facility] [address] [id number] [place] [address]- [address] Feb, [facility] [place] [facility] [address] [id number] [place] [address]- [address] Feb, [facility] [place] [facility] [address] [id number] [place] [address] Feb, [facility] [place] [facility] [address] [id number] [place] [address] 2408 Feb, [facility] [place] [facility] [address] [id number] [place] [address] 78[address] Feb, [facility] [place] [facility] [address] [id number] [place] [address] 2300 Feb, [facility] [place] [facility] [address] [id number] [place] [address] 6768 Feb, [facility] [place] [facility] [address] [id number] [place] [address] 8266 January, [facility] [place] [facility] [address] [id number] [place] [address] 8239 January, [facility] [place] [facility] [address] [id number] [place] [address]- 1635 January, [facility] [place] [facility] [address] [id number] [place] [address]- 5556 January, [facility] [place] [facility] [address] [id number] [place] [address]- 5552 January, [facility] [place] [facility] [address] [id number] [place] [address]- 4750 January, [facility] [place] [facility] [address] [id number] [place] [address]- 0589 January, [facility] [place] [facility] [address] [id number] [place] [address] 3168 January, [facility] [place] [facility] [address] [id number] [place] [address]- 8970 January, [facility] [address] [id number] [place] [address]- 7985 January, [facility] [place] [facility] [address] [id number] [place] [address]- 3610 January, [facility] [place] [facility] [address] [id number] [place] [address]- 8974 January, [facility] [place] [facility] [address] [id number] [place] [address]- 0048 January, [facility] [place] [facility] [address] [id number] [place] [address]- 8481 January, [facility] [place] [facility] [address] [id number] [place] [address]- 0803 Dec, [facility] [place] [facility] [address] [id number] [place] [address]- 4594 Dec, [facility] [place] [facility] [address] [id number] [place] [address]- 8560 Dec, [facility] [place] [facility] [address] [id number] [place] [address]- 5248 Dec, [facility] [place] [facility] [address] [id number] [place] [address]- 4724 Dec, [facility] [place] [facility] [address] [id number] [place] [address]- 6389 Dec, [facility] [place] [facility] [address] [id number] [place] [address]- 1213 Dec, [facility] [place] [facility] [address] [id number] [place] [address]- 0351 Dec, [facility] [place] [facility] [address] [id number] [place] [address]- 8552 Dec, [facility] [place] [facility] [address] [id number] [place] [address]- 7774 Dec, [facility] [place] [facility] [address] [id number] [place] [address]- 9825 Nov, [facility] [place] [facility] [address] [id number] [place] [address]- 4694 Nov, [facility] [place] [facility] [address] [id number] [place] [address]- 3821 Nov, [facility] [place] [facility] [address] [id number] [place] [address]- 3346 Nov, [facility] [place] [facility] [address] [id number] [place] [address]- 0402 Nov, [facility] [place] [facility] [address] [id number] [place] [address]- 6634 Nov, [facility] [place] [facility] [address] [id number] [place] [address]- 3664 Nov, [facility] [place] [facility] [address] [id number] [place] [address]- 3576 Nov, [facility] [place] [facility] [address] [id number] [place] [address]- 4334 Nov, [facility] [place] [facility] [address] [id number] [place] [address]- 3679 Nov, [facility] [place] [facility] [address] [id number] [place] [address]- 9245 Oct, [facility] [place] [facility] [address] [id number] [place] [address]- 4695 Oct, [facility] [place] [facility] [address] [id number] [place] [address]- 2207 Oct, [facility] [place] [facility] [address] [id number] [place] [address]- 0145 Oct, [facility] [place] [facility] [address] [id number] [place] [address]- 9889 Oct, [facility] [place] [facility] [address] [id number] [place] [address]- 3164 Oct, [facility] [place] [facility] [address] [id number] [place] [address]- 8696 Oct, [facility] [place] [facility] [address] [id number] [place] [address] Oct, [facility] [place] [facility] [address] [id number] [place] [address]- 7586 Oct, [facility] [place] [facility] [address] [id number] [place] [address]- 6435 Oct, [facility] [place] [facility] [address] [id number] [place] [address]- 7021 Oct, [facility] [place] [facility] [address] [id number] [place] [address]- 8101 Oct, [facility] [place] [facility] [address] [id number] [place] [address]- 6452 Oct, [facility] [place] [facility] [address] [id number] [place] [address]- 3068 Oct, [facility] [place] [facility] [address] [id number] [place] [address]- 1672 Sep, [facility] [place] [facility] [address] [facility] [id number] [place] [address]- 9806 Sep, [facility] [place] [facility] [address] [id number] [place] [address]- 0149 Sep, [facility] [place] [facility] [address] [id number] [place] [address]- 6657 Sep, [facility] [place] [facility] [address] [id number] [place] [address]- 1790 Sep, [facility] [place] [facility] [address] [id number] [place] [address]- 6181 Sep, [facility] [place] [facility] [address] [id number] [place] [address]- 5001 Sep, [facility] [place] [facility] [address] [id number] [place] [address]- 6456 14 Sep, 2013 [facility] [place] [facility] [address] [id number] [place] [address]- 2851 Sep, [facility] [place] [facility] [address] [id number] [place] [address]- 3957 Sep, [facility] [place] [facility] [address] [id number] [place] [address]- 7450 Aug, [facility] [place] [facility] [address] [id number] [place] [address]- 8472 Aug, [facility] [place] [facility] [address] [id number] [place] [address]- 4535 Jul, [facility] [place] [facility] [address] [id number] [place] [address]- 0573 Jul, [facility] [place] [facility] [address] [id number] [place] [address]- 5771 Jul, [facility] [place] [facility] [address] [id number] [place] [address]- 0784 Jul, [facility] [place] [facility] [address] [id number] [place] [address]- 8323 Jul, [facility] [place] [facility] [address] [id number] [place] [address]- 8734 Jul, [facility] [place] [facility] [address] [id number], [place] [address]- 0536 Jul, [facility] [place] [facility] [address] [id number] [place] [address]- 6776 Jul, [facility] [place] [facility] [address] [id number] [place] [address]- 1137 Jul, [facility] [place] [facility] [address] [id number] [place] [address]- 5711 Jul, [facility] [place] [facility] [address] [id number], [place] [address]- 3331 07 Jul, 2012 [facility] [place] [facility] [address] [id number] [place] [address]- 2056 Jul, 2012 [facility] [place] [facility] [address] [id number], [place] [address]- 1216 Jul, 2012 [facility] [place] [facility] [address] [id number] [place] [address]- 0918 Jul, 2012 [facility] [place] [facility] [address] [id number], [place] [address]- 0209 Jul, 2012 [facility] [place] [facility] [address] [id number] [place] [address]- 1505 Jul, 2012 [facility] [place] [facility] [address] [id number], [place] [address]- 0907 Jul, 2012 [facility] [place] [facility] [address] [id number], [place] [address]- 3774 Jul, 2012 [facility] [place] [facility] [address] [id number], [place] [address]- 0798 Jul, [facility] [place] [facility] [address] [id number], [place] [address]- 1087 16 Jun, 2012 [facility] [place] [facility] [address] [id number], [place] [address]- 1869 16 Jun, 2012 [facility] [place] [facility] [address] [id number], [place] [address]- 2785 16 Jun, 2012 [facility] [place] [facility] [address] [id number], [place] [address]- 4982 16 Jun, 2012 [facility] [place] [facility] [address] [id number], [place] [address]- 6853 16 Jun, 2012 [facility] [place] [facility] [address] [id number], [place] [address]- 0388 16 Jun, 2012 [facility] [place] [facility] [address] [facility] [id number], [place] [address]- 8290 10 Jun, 2012 [facility] [place] [facility] [address] [id number] [place] [address]- 8237 Jun, [facility] [place] [facility] [address] [id number] [place] [address]- 5896 Jun, [facility] [place] [facility] [address] [id number] [place] [address] 2546 Jun, [facility] [place] [facility] [address] [id number] [place] [address]- 6698 Jun, [facility] [place] [facility] [address] [id number] [place] [address]- 3548 26 May, 2012 [facility] [place] [facility] [address] [id number] [place] [address]- 8134 25 May, 2012 [facility] [place] [facility] [address] [id number] [place] [address]- 6120 19 May, 2013 [facility] [place] [facility] [address] [id number] [place] [address]- 6485 17 May, 2013 [facility] [place] [facility] [address] [id number] [place] [address]- 2163 11 May, 2013 [facility] [place] [facility] [address] [id number] [place] [address]- 4603 10 May, 2013 [facility] [place] [facility] [address] [id number] [place] [address]- 4105 May, [facility] [place] [facility] [address] [id number] [place] [address]- 2547 05 May, 2013 [facility] [place] [facility] [address] [id number] [place] [address] 2542 Apr, [facility] [place] [facility] [address] [id number] [place] [address] 2542 Apr, [facility] [place] [facility] [address] [id number] [place] [address]- 2545 Apr, [facility] [place] [facility] [address] [id number] [place] [address]- 3428 Apr, [facility] [address] [id number] [place] [address]- 9877 Apr, [facility] [place] [facility] [address] [id number] [place] [address]- 6155 Mar, [facility] [place] [facility] [address] [id number] [place] [address]- 3738 Mar, [facility] [place] [facility] [address] [id number] [place] [address]- 7418 Mar, [facility] [place] [facility] [address] [id number] [place] [address]- 1495 Mar, [facility] [place] [facility] [address] [id number] [place] [address]- 5729 Mar, [facility] [place] [facility] [address] [id number] [place] [address]- 4407 Mar, [facility] [place] [facility] [address] [id number] [place] [address]- 0612 Mar, [facility] [place] [facility] [address] [id number] [place] [address]- 7865 Mar, [facility] [place] [facility] [address] [id number] [place] [address]- 9901 Feb, [facility] [place] [facility] [address] [id number] [place] [address]- 2076 Feb, [facility] [place] [facility] [address] [id number], [place] [address]- 1894 January, [facility] [place] [facility] [address] [id number] [place] [address]- 6916 January, [facility] [place] [facility] [address] [id number] [place] [address]- 9727 Dec, [facility] [place] [facility] [address] [id number] [place] [address]- 8933 Dec, [facility] [place] [facility] [address] [id number] [place] [address]- 6287 Nov, [facility] [address] [id number] [place] [address]- 3051 Nov, [facility] [place] [facility] [address] [id number] [place] [address]- 9058 Nov, [facility] [place] [facility] [address] [id number] [place] [address]- 8201 Nov, [facility] [place] [facility] [address] [id number] [place] [address] 2541 27 Oct, 2012 [facility] [place] [facility] [address] [id number] [place] [address]- 8899 Oct, [facility] [place] [facility] [address] [id number] [place] [address]- 7312 Oct, [facility] [place] [facility] [address] [id number] [place] [address]- 4402 26 Oct, 2012 [facility] [place] [facility] [address] [id number] [place] [address]- 3503 16 Oct, 2012 [facility] [place] [facility] [address] [id number] [place] [address]- 6904 14 Oct, 2012 [facility] [place] [facility] [address] [facility] [id number] [place] [address]- 8750 08 Oct, 2012 [facility] [place] [facility] [address] [facility] [id number] [place] [address]- 6081 07 Oct, 2012 [facility] [place] [facility] [address] [id number] [place] [address]- 4554 03 Oct, 2012 [facility] [place] [facility] [address] [id number] [place] [address]- 0804 30 Sep, 2012 [facility] [place] [facility] [address] [id number] [place] [address]- 7437 29 Sep, 2012 [facility] [place] [facility] [address] [facility] [id number] [place] [address]- 7013 Sep, [facility] [place] [facility] [address] [id number] [place] [address]- 7753 Sep, [facility] [place] [facility] [address] [id number] [place] [address]- 3316 Sep, [facility] [place] [facility] [address] [id number] [place] [address]- 9753 Sep, [facility] [place] [facility] [address] [id number] [place] [address]- 5634 Sep, [facility] [place] [facility] [address] [id number] [place] [address]- 3872 Sep, [facility] [place] [facility] [address] [id number] [place] [address]- 2034 Aug, [facility] [place] [facility] [address] [id number] [place] [address]- 4983 Aug, [facility] [place] [facility] [address] [id number] [place] [address]- 2176 Aug, [facility] [place] [facility] [address] [id number] [place] [address]- 8911 Aug, [facility] [place] [facility] [address] [id number] [place] [address]- 2805 Aug, [facility] [place] [facility] [address] [id number] [place] [address]- 0242 Aug, [facility] [place] [facility] [address] [id number] [place] [address]- 3917 Aug, [facility] [place] [facility] [address] [id number] [place] [address]- 2738 Aug, [facility] [place] [facility] [address] [id number] [place] [address]- 9740 Jul, [facility] [place] [facility] [address] [id number] [place] [address]- 4460 Jul, [facility] [place] [facility] [address] [id number] [place] [address]- 8581 Jul, [facility] [place] [facility] [address] [id number] [place] [address]- 6555 Jul, [facility] [place] [facility] [address] [id number] [place] [address]- 7088 Jul, [facility] [place] [facility] [address] [id number] [place] [address]- 0000 Jul, [facility] [place] [facility] [address] [id number] [place] [address]- 1896 Jun, [facility] [place] [facility] [address] [id number] [place] [address]- 8548 Jun, [facility] [place] [facility] [address] [id number] [place] [address]- 3779 Jun, [facility] [place] [facility] [address] [id number] [place] [address]- 6375 Jun, [facility] [place] [facility] [address] [id number] [place] [address]- 5773 Jun, [facility] [place] [facility] [address] [id number] [place] [address]- 2576 Jun, [facility] [place] [facility] [address] [id number] [place] [address]- 3470 Jun, [facility] [place] [facility] [address] [id number] [place] [address]- 3147 10 Jun, 2012 [facility] [place] [facility] [address] [id number] [place] [address]- 3027 10 Jun, 2012 [facility] [place] [facility] [address] [id number] [place] [address]- 2245 26 May, 2012 [facility] [place] [facility] [address] [id number] [place] [address]- 4674 24 Sep2011 [facility] [place] [facility] [address] [id number] [place] [address]- 5552 May, [facility] [place] [facility] [address] [id number] [place] [address]- 9314 Apr, [facility] [place] [facility] [address] [id number] [place] [address]- 3013 Apr, [facility] [place] [facility] [address] [id number] [place] [address]- 4839 Apr, [facility] [place] [facility] [address] [id number] [place] [address]- 3035 Apr, [facility] [place] [facility] [address] [id number] [place] [address]- 0029 Apr, [facility] [place] [facility] [address] [id number] [place] [address]- 6398 Apr, [facility] [place] [facility] [address] [id number] [place] [address]- 9997 Mar, [facility] [place] [facility] [address] [id number] [place] [address]- 3188 Mar, [facility] [place] [facility] [address] [id number] [place] [address]- 0821 Mar, [facility] [place] [facility] [address] [id number] [place] [address]- 2751 Mar, [facility] [place] [facility] [address] [id number] [place] [address]- 2299 Feb, [facility] [place] [facility] [address] [id number] [place] [address]- 7466 Feb, [facility] [place] [facility] [address] [id number] [place] [address]- 7370 Feb, [facility] [place] [facility] [address] [id number] [place] [address]- 4858 Feb, [facility] [place] [facility] [address] [id number] [place] [address]- 4141 Feb, [facility] [place] [facility] [address] [id number] [place] [address]- 5152 January, [facility] [address] [id number] [place] [address]- 4795 January, [facility] [place] [facility] [address] [id number] [place] [address]- 8426 January, [facility] [place] [facility] [address] [id number] [place] [address] January, [facility] [place] [facility] [address] [id number] [place] [address] 2011 January, [facility] [place] [facility] [address] [id number] [place] [address] January, [facility] [place] [facility] [address] [id number] [place] [address] Dec, [facility] [address] [id number] [place] [address] Dec, [facility] [place] [facility] [address] [id number] [place] [address] Dec, [facility] [place] [facility] [address] [id number] [place] [address] Dec, [facility] [place] [facility] [address] [facility] [id number] [place] [address] Dec, [facility] [place] [facility] [address] [id number] [place] [address] Nov, [facility] [place] [facility] [address] [id number] [place] [address] Nov, [facility] [place] [facility] [address] [id number] [place] [address] Nov, [facility] [place] [facility] [address] [id number] [place] [address] Nov, [facility] [place] [facility] [address] [facility] [id number] [place] [address] Oct, [facility] [place] [facility] [address] [id number] [place] [address] 28 Oct, 2011 [facility] [place] [facility] [address] [id number] [place] [address] 24 Oct, 2011 [facility] [place] [facility] [address] [id number] [place] [address]46 13 Oct, 2011 [facility] [place] [facility] [address] [id number] [place] [address] 08 Oct, 2011 [facility] [place] [facility] [address] [id number] [place] [address] Sep, [facility] [place] [facility] [address] [id number] [place] [address] Sep, [facility] [place] [facility] [address] [id number] [place] [address] Sep, [facility] [place] [facility] [address] [id number] [place] [address] Sep, [facility] [place] [facility] [address] [id number] [place] [address] Sep, [facility] [place] [facility] [address] [id number] [place] [address] Sep, [facility] [place] [facility] [address] [id number] [place] [address] Aug, [facility] [place] [facility] [address] [id number] [place] [address] Aug, [facility] [place] [facility] [address] [id number] [place] [address] Aug, [facility] [place] [facility] [address] [id number] [place] [address] Jul, [facility] [place] [facility] [address] [id number] [place] [address] Jul, [facility] [place] [facility] [address] [id number] [place] [address] Jul, [facility] [place] [facility] [address] [id number] [place] [address] Jul, [facility] [place] [facility] [address] [id number] [place] [address] Jun, [facility] [place] [facility] [address] [id number] [place] [address] Jun, [facility] [place] [facility] [address] [id number] [place] [address] Jun, [facility] [place] [facility] [address] [id number] [place] [address] 79[address] Jun, [facility] [place] [facility] [address] [id number] [place] [address] Jun, [facility] [place] [facility] [address] [id number] [place] [address] Jun, [facility] [place] [facility] [address] [id number] [place] [address] Mar, [facility] [place] [facility] [address] [id number] [place] [address] Dec, [facility] [place] [facility] [address] [id number] [place] [address] Dec, [facility] [place] [facility] [address] [id number] [place] [address] Nov, [facility] [place] [facility] [address] [id number] [place] [address] 16 Nov, 2010 [facility] [place] [facility] [address] [id number] [place] [address] Sep, [facility] [place] [facility] [address] [id number] [place] [address] Aug, [facility] [place] [facility] [address] [id number] [place] [address] Aug, [facility] [place] [facility] [address] [id number] [place] [address] 2546 29 Aug, 2010 [facility] [address] [id number] [place] [address] 2546 29 Aug, 2010 [facility] [address] [id number] [place] [address] 2546 27 Aug, 2010 [facility] [address] [id number] [place] [address]- [address] 14 Aug, 2010 [facility] [address] [id number] [place] [address] 2546 08 Aug, 2010 [facility] [address] [id number] [place] [address] 08 Aug, 2010 [facility] [address] [facility] [id number] [place] [address] Aug, [facility] [address] [facility] [id number] [place] [address] Aug, [facility] [address] [facility] [id number] [place] [address] Aug, [facility] [address] [facility] [id number] [place] [address] 25[address] Aug, [facility] [address] [facility] [id number] [place] [address]- [address] 30 Jul, 2010 [facility] [place] [facility] [address] [id number] [place] [address] 2546 30 Jul, 2010 [facility] [address] [facility] [id number] [place] [address] 2546 30 Jul, 2010 [facility] [place] [facility] [address] [facility] [id number] [place] [address] 2546 17 Jul, 2010 [facility] [address] [facility] [id number] [place] [address]- [address] 08 Jul, 2010 [facility] [address] [facility] [id number] [place] [address] Jul, [facility] [address] [id number] [place] [address]- [address] Jun, [facility] [place] [facility] [address] [id number] [place] [address]- 4086 Jun, [facility] [place] [facility] [address] [id number] [place] [address]- 7922 Jun, [facility] [place] [facility] [address] [id number] [place] [address]- 70[address] Jun, [facility] [place] [facility] [address] [id number] [place] [address]- [address]159 16 Apr, 2010 [facility] [place] [facility] [address] [id number] [place] [address]- 2056 Mar, [facility] [place] [facility] [address] [facility] [id number] [place] [address]- [address] Feb, [facility] [place] [facility] [address] [id number], [place] [address] January, [facility] [place] [facility] [address] [id number] [place] [address]- 6634 Dec, [facility] [place] [facility] [address] [facility] [id number] [address] Nov, [facility] [address] [facility] [id number], [place] [address] Aug, [facility] [address] [id number], [place] [address] Aug, [facility] [address] [id number], [place] [address] Aug, [facility] [address] [id number], [place] [address] Jul, [facility] [address] [facility] [id number], [place] [address] Jul, [facility] [address] [id number], [place] [address] Jul, [facility] [id number], [place] [address] Jun, [facility] [id number], [place] [address] Jun, [facility] [id number], [place] [address] Jun, [facility] [id number] [place] [address] Jun, [facility] [id number] [place] [address] Jun, [facility] [id number] [place] [address] Jun, [facility] [id number] [place] [address] Apr, [facility] [id number], [place] [address] Apr, [facility] [id number], [place] [address] Feb, [facility] [id number], [place] [address] January, [facility] [id number], [place] [address] Dec, IMMUNIZATIONS No Known Immunizations SOCIAL HISTORY Never Assessed REASON FOR VISIT Controlled Med Refill 07/03/18 PLAN OF CARE VITAL SIGNS MEDICATIONS Medication [...] tunnel release (Left) 2000 Surgical History EGD ([facility]) 2009 Surgical History colonoscopy 2009 ([facility]), 2013 ([facility]) Surgical History heart cath: CAD w/ PTCA [...] History inability to urinate 09/16/15 Hospitalization History [facility] mental health early Hospitalization History hyperkalemia 10/2017 Hospitalization History fluid in lung
--- OUTSIDE RECORDS SUMMARY | 2018-08-08 13:40 | XMS REPORT ---
Author Author ROSELINE LUIS Organization [facility] Address [address] [place] [address] Care Team Providers Care Pilot [employer] Research Technician Name Role Phone ROSELINE LUIS Unavailable PROBLEMS Type Condition ICD9-CM Code [id number] Code Onset Dates Condition Status SNOMED Code Problem Chronic lymphocytic leukemia C91.10 Active 15218350 Problem Eye exam abnormal R93.8 Active 627342988 Problem Lymphocytosis D72.820 Active 44008670 Problem Eustachian tube dysfunction, unspecified laterality H69.80 Active 77032179 Problem Dysuria R30.0 Active 24022037 Problem Cough R05 Active 48584343 Problem Polyneuropathy associated with underlying disease G63 Active 231397337 Problem Hypokalemia E87.6 Active 01473997 Problem Bilateral primary osteoarthritis of knee M17.0 Active 340766063 Problem Benign prostatic hyperplasia with lower urinary tract symptoms, unspecified morphology N40.1 Active 663375351 Problem Retinal edema H35.81 Active 2657071 Problem 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 Active 482375513 Problem Anemia of chronic illness D63.8 Active 435193056 Problem Other chronic pain G89.29 Active 48612524 Problem Other iron deficiency anemia D50.8 Active 64555316 Problem Leukocytosis D72.829 Active 358429944 Problem Chronic pain G89.29 Active 06013884 Problem DM neuro manif type II E11.49 Active 75228508 Problem Bipolar disorder, in partial remission, most recent episode depressed F31.75 Active 00259589 Problem Falling R29.6 Active 720063909 Problem Primary osteoarthritis of right knee M17.11 Active 081431343605683 Problem Pure hypercholesterolemia E78.00 Active 445111805 Problem Bipolar I disorder, most recent episode (or current) mixed, moderate F31.62 Active 92107355 Problem Insomnia, unspecified type G47.00 Active 809456942 Problem Diabetes E11.9 Active 07954958 Problem Reactive airway disease J45.909 Active 326543905681 Problem Essential hypertension I10 Active 00156595 Problem Diabetic polyneuropathy associated with type 2 diabetes mellitus E11.42 Active 14253440 Problem Anxiety F41.9 Active 00185332 Problem Morbid obesity E66.01 Active 227916069 ALLERGIES No Information ENCOUNTERS Encounter Location Date Diagnosis [facility] [id number] [place] [address] 25496- 4731 Jun, [facility] [address] 66991- 3576 Jun, [facility] [address] 53330- [address]302 Jun, [facility] [address] 90106- 7985 Jun, [facility] [address] 67758- 8915 Jun, Forgetfulness R68.89 ; Pre-syncope R55 ; Localized edema R60.0 ; Other iron deficiency anemia D50.8 and BMI 50.0-59.9, adult Z68.43 [facility] [id number] [place] [address] 54306- 0351 Jun, Chronic pain G89.29 [facility] [id number] [place] [address] 21912- 8645 Jun, Chronic pain G89.29 [facility] [address] 38918- 5918 Jun, Bipolar I disorder, most recent episode (or current) mixed, moderate F31.62 [facility] [id number] [place] [address] 91470- 6428 May, Chronic pain G89.29 [facility] [id number] [place] [address] 56126- 2316 Apr, [facility] [id number] [place] [address] 77841- 5282 Apr, Chronic pain G89.29 [facility] [address], [place] [address] 43[address] Apr, Primary osteoarthritis of right knee M17.11 [facility] [id number] [place] [address] 59330- 6280 Mar, [facility] [id number] [place] [address] 50560- 6127 Mar, BMI 50.0-59.9, adult Z68.43 and Bipolar disorder, in partial remission, most recent episode depressed F31.75 [facility] [id number] [place] [address] 37971- 6772 Mar, Diabetes E11.9 ; Pure hypercholesterolemia E78.00 ; Essential hypertension I10 ; Nausea with vomiting, unspecified R11.2 and Headache, unspecified headache type R51 [facility] [id number] [place] [address] 39606- 1709 Mar, Bipolar I disorder, most recent episode (or current) mixed, moderate F31.62 [facility] [id number] [place] [address] 52936- 6387 Mar, Bipolar I disorder, most recent episode (or current) mixed, moderate F31.62 [facility] [id number] [place] [address] 48479- 3164 Mar, Chronic pain G89.29 [facility] [id number] [place] [address] 63513- 9578 Mar, Bipolar I disorder, most recent episode (or current) mixed, moderate F31.62 [facility] [id number] [place] [address] 37404- 4194 Feb, Bipolar I disorder, most recent episode (or current) mixed, moderate F31.62 [facility] [id number] [place] [address] 26561- 1362 Feb, Chronic pain G89.29 [facility] [id number] [place] [address] 39765- 6600 Feb, Decubitus ulcer of right foot, stage 3 L89.893 and BMI 50.0- 59.9, adult Z68.43 [facility] [id number] [place] [address] 50079- 1402 Feb, Bipolar I disorder, most recent episode (or current) mixed, moderate F31.62 [facility] [id number] [place] [address] 59424- 2539 Feb, [facility] [id number] [place] [address] 44884- 0815 January, [facility] [id number] [place] [address] 17553- 5947 January, Chronic pain G89.29 [facility] [id number] [place] [address] 07868- 5031 January, Bipolar I disorder, most recent episode (or current) mixed, moderate F31.62 [facility] [id number] [place] [address] 86537- 1326 January, Bipolar I disorder, most recent episode (or current) mixed, moderate F31.62 [facility] [id number] [place] [address] 02146- 8734 Dec, Bipolar I disorder, most recent episode (or current) mixed, moderate F31.62 and BMI 50.0-59.9, adult Z68.43 [facility] [address] [place] [address] 12174- 5918 Dec, Bipolar I disorder, most recent episode (or current) mixed, moderate F31.62 [facility] [id number] [place] [address] 23311- 7305 Dec, Chronic pain G89.29 [facility] [id number] [place] [address] 31038- 2249 Dec, DM neuro manif type II E11.49 ; Right flank pain R10.9 ; long term 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 Z79.891 ; Encounter for medication monitoring Z51.81 and BMI 50.0-59.9, adult Z68.43 [facility] [address] 70523- 5739 Dec, Bipolar I disorder, most recent episode (or current) mixed, moderate F31.62 [facility] [id number] [place] [address] 29652- 9461 Nov, Bipolar I disorder, most recent episode (or current) mixed, moderate F31.62 [facility] [id number] [place] [address] 34747- 6773 Nov, Chronic pain G89.29 [facility] [id number] [place] [address] 25194- 3418 Nov, Bipolar I disorder, most recent episode (or current) mixed, moderate F31.62 [facility] [address] 10920- 2308 Nov, Hypokalemia E87.6 [facility] [address] 89023- 4433 Nov, Bipolar I disorder, most recent episode (or current) mixed, moderate F31.62 [facility] [id number] [place] [address] 75422- 8539 Oct, Chronic pain G89.29 [facility] [id number] [place] [address] 65326- 0281 Oct, BMI 50.0-59.9, adult Z68.43 and Bipolar I disorder, most recent episode (or current) mixed, moderate F31.62 [facility] [id number] [place] [address] 04048- 1333 Oct, Bipolar I disorder, most recent episode (or current) mixed, moderate F31.62 [facility] [id number] [place] [address] 29044- 3395 Oct, [facility] [id number] [place] [address] 68378- 7712 Oct, Hypokalemia E87.6 [facility] [address] 25440- 6707 Oct, DM neuro manif type II E11.49 [facility] [id number] [place] [address] 02280- 0223 Oct, Bipolar I disorder, most recent episode (or current) mixed, moderate F31.62 [facility] [id number] [place] [address] 20693- 8892 Oct, Bipolar I disorder, most recent episode (or current) mixed, moderate F31.62 [facility] [id number] [place] [address] 31087- 8774 Oct, Hyperkalemia E87.5 ; Falling R29.6 ; BMI 50.0-59.9, adult Z68.43 and Acute left ankle pain M25.572 [facility] [address] 39806- 1401 Oct, DM neuro manif type II E11.49 [facility] [id number] [place] [address] 26348- 0889 Oct, [facility] [id number] [place] [address] 39118- 6914 Sep, Chronic pain G89.29 [facility] [id number] [place] [address] 86925- 6227 Sep, [facility] [address] 63112- 5149 Sep, Bilateral primary osteoarthritis of knee M17.0 [facility] [id number] [place] [address] 57207- 8785 Sep, Generalized edema R60.1 [facility] [address] 05578- 8335 Sep, Bipolar I disorder, most recent episode (or current) mixed, moderate F31.62 [facility] [id number] [place] [address] 17988- 4268 15 Sep, 2017 Hypoxia R09.02 ; Other hypervolemia E87.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 ; Anemia of chronic illness D63.8 and BMI 50.0- 59.9, adult Z68.43 [facility] [address] 63123- 4586 Sep, [address] 23208- 5409 Sep, Bipolar I disorder, most recent episode (or current) mixed, moderate F31.[address] 16105- 9662 Aug, Chronic pain G89.29 [facility] [address] 23581- 8533 Aug, Generalized edema R60.[address] 77470- 6367 Aug, [facility] [id number] [place] [address] 59089- 3762 Aug, [facility] [address] 432475- 4479 14 Aug, 2017 Bipolar I disorder, most recent episode (or current) mixed, moderate F31.[address] 99933- 6284 07 Aug, 2017 Bipolar I disorder, most recent episode (or current) mixed, moderate F31.62 [facility] [id number] [place] [address] 67395- 7404 04 Aug, 2017 Chronic pain G89.29 [facility] [address], [place] [address]- 1583 Jul, Bipolar I disorder, most recent episode (or current) mixed, moderate F31.62 [facility] [id number] [place] [address] 75672- 8385 Jul, Bipolar I disorder, most recent episode (or current) mixed, moderate F31.62 and BMI 60.0-69.9, adult Z68.44 [facility] [id number] [place] [address] 64368- 9660 Jul, Bipolar I disorder, most recent episode (or current) mixed, moderate F31.62 [facility] [id number] [place] [address] 68276- 0122 Jul, Chronic pain G89.29 [facility] [id number] [place] [address] 91827- 4249 Jul, Bipolar I disorder, most recent episode (or current) mixed, moderate F31.62 [facility] [id number] [place] [address] 90558- 1395 Jun, Polyneuropathy associated with underlying disease G63 and Diabetes E11.9 [facility] [id number] [place] [address] 43045- 7109 Jun, Bipolar I disorder, most recent episode (or current) mixed, moderate F31.62 [facility] [id number] [place] [address] 32343- 2182 Jun, Chronic pain G89.29 [facility] [id number] [place] [address] 94497- 6228 May, Bipolar I disorder, most recent episode (or current) mixed, moderate F31.62 [facility] [id number] [place] [address] 83013- 7185 May, Bipolar I disorder, most recent episode (or current) mixed, moderate F31.62 [facility] [id number] [place] [address] 56826- 1689 20 May, 2017 Diabetic polyneuropathy associated with type 2 diabetes mellitus E11.42 [facility] [id number] [place] [address] 821476- 6576 18 May, 2017 Bipolar I disorder, most recent episode (or current) mixed, moderate F31.62 [facility] [id number] [place] [address] 49308- 1162 13 May, 2017 Bipolar I disorder, most recent episode (or current) mixed, moderate F31.62 [facility] [id number] [place] [address] 86476- 3848 12 May, 2017 Chronic pain G89.29 [facility] [id number] [place] [address] 88548- 5629 30 Apr, 2017 Bipolar I disorder, most recent episode (or current) mixed, moderate F31.62 [facility] [id number] [place] [address] 36819- 6975 Apr, [facility] [id number] [place] [address] 37670- 1780 Apr, Chronic pain G89.29 and DM neuro manif type II E11.49 [facility] [id number] [place] [address] 46662- 0513 Apr, [facility] [id number] [place] [address] 19918- 5833 Apr, Bipolar I disorder, most recent episode (or current) mixed, moderate F31.62 [facility] [address] [place] [address] 93566- 6869 14 Apr, 2017 Chronic pain G89.29 [facility] [id number] [place] [address] 28831- 9934 Apr, Iliotibial band syndrome, left M76.32 [facility] [address] [place] [address] 68587- 3789 Apr, Bipolar I disorder, most recent episode (or current) mixed, moderate F31.62 [facility] [address] [address]- 5463 Mar, Bipolar I disorder, most recent episode (or current) mixed, moderate F31.62 [facility] [address] [place] [address] 46789- 2585 Mar, Bipolar I disorder, most recent episode (or current) mixed, moderate F31.62 [facility] [id number] [place] [address] 04456- 2668 Mar, [facility] [id number] [place] [address] 69581- 9726 Mar, Bipolar I disorder, most recent episode (or current) mixed, moderate F31.62 [facility] [id number] [place] [address] 52729- 8573 Mar, Chronic pain G89.29 [facility] [id number] [place] [address] 22941- 9331 Mar, Bipolar I disorder, most recent episode (or current) mixed, moderate F31.62 [facility] [id number] [place] [address] 91199- 1923 Mar, Bipolar I disorder, most recent episode (or current) mixed, moderate F31.62 [facility] [address] [place] [address] 65806- 7200 Mar, Acute pain of left knee M25.562 ; Left hip pain M25.552 ; Generalized edema R60.1 and Tongue swelling R22.0 [facility] [id number] [place] [address] 38829- 4592 Mar, [facility] [address] 28267- 5109 Feb, Chronic pain G89.29 [facility] [id number] [place] [address] 85210- 0757 Feb, Diabetes E11.9 [facility] [address] [address]- 5971 January, Chronic pain G89.29 [facility] [id number] [place] [address] 65937- 8085 January, [facility] [address] [place] [address] 21600- 4162 January, Bipolar I disorder, most recent episode (or current) mixed, moderate F31.62 [facility] [id number] [place] [address] 20666- 3638 Dec, Bipolar I disorder, most recent episode (or current) mixed, moderate F31.62 [facility] [id number] [place] [address] 52103- 7535 Dec, Chronic pain G89.29 [facility] [id number] [place] [address] 87086- 4167 Dec, Bipolar I disorder, most recent episode (or current) mixed, moderate F31.62 [facility] [address] [place] [address] 84137- 8498 Dec, Diabetes E11.9 ; Essential hypertension I10 ; Chronic pain G89.29 and Morbid obesity E66.01 [facility] [address] [place] [address] 79982- 6561 Dec, [facility] [id number] [place] [address] 98807- 8246 Dec, Bipolar I disorder, most recent episode (or current) mixed, moderate F31.62 [facility] [address] [address]- 2737 Dec, Bipolar I disorder, most recent episode (or current) mixed, moderate F31.62 [facility] [address] [place] [address] 38694- 2427 Nov, Chronic pain G89.29 [facility] [id number] [place] [address] 44823- 7932 Nov, Bipolar I disorder, most recent episode (or current) mixed, moderate F31.62 [facility] [address], [place] [address]- 9217 Nov, [facility] [address] [address]- 9358 Nov, Bipolar I disorder, most recent episode (or current) mixed, moderate F31.62 [facility] [id number] [place] [address] 24492- 3478 Nov, Bipolar I disorder, most recent episode (or current) mixed, moderate F31.62 [facility] [address] [place] [address] 58655- 6468 Nov, [facility] [id number] [place] [address] 16794- 0181 Nov, [facility] [id number] [place] [address] 81664- 8865 Nov, [facility] [address] [place] [address] 15177- 6204 Oct, Chronic pain G89.29 [facility] [address] [place] [address] 74693- 7964 Oct, Bipolar I disorder, most recent episode (or current) mixed, moderate F31.62 [facility] [address] [address]- 4683 Oct, [facility] [address] [place] [address] 68571- 9422 Oct, Chronic pain G89.29 ; Diabetes E11.9 ; Anxiety F41.9 and 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 [facility] [address], [place] [address]- 2186 Oct, [facility] [id number] [place] [address] 70605- 9972 Oct, Diabetes E11.9 [facility] [id number] [place] [address] 026267- 3176 Oct, Bipolar I disorder, most recent episode (or current) mixed, moderate F31.62 [facility] [address] [place] [address] 86016- 1916 Sep, Chronic pain G89.29 [facility] [id number] [place] [address] 17976- 1266 Sep, Chronic pain G89.29 [facility] [id number] [place] [address] 618246- 8416 Aug, Chronic pain G89.29 [facility] [id number] [place] [address] 54154- 4426 Jul, [facility] [id number] [place] [address] 37010- 0063 Jul, Diabetes E11.9 [facility] [id number] [place] [address] 34070- 4611 Jul, Chronic pain G89.29 [facility] [id number] [place] [address] 76209- 6839 Jul, Bipolar I disorder, most recent episode (or current) mixed, moderate F31.62 [facility] [address] [place] [address] 22247- 5585 Jun, Bipolar I disorder, most recent episode (or current) mixed, moderate F31.62 [facility] [address] [place] [address] 84151- 8846 Jun, [facility] [id number] [place] [address] 28192- 6396 Jun, Bipolar I disorder, most recent episode (or current) mixed, moderate F31.62 [facility] [id number] [place] [address] 22089- 1962 May, Insomnia, unspecified type G47.00 [facility] [id number] [place] [address] 00913- 5896 22 May, 2016 Bipolar I disorder, most recent episode (or current) mixed, moderate F31.62 [facility] [id number] [place] [address] 87176- 3156 14 May, 2016 [facility] [address] 88282- 3213 May, Bipolar I disorder, most recent episode (or current) mixed, moderate F31.62 [facility] [id number] [place] [address] 62794- 6897 May, Diabetes E11.9 and Essential hypertension I10 [facility] [id number] [place] [address] 90503- 0416 Apr, Chronic pain G89.29 [facility] [id number] [place] [address] 59438- 4480 Apr, Bipolar I disorder, most recent episode (or current) mixed, moderate F31.62 [facility] [id number] [place] [address] 76342- 7282 Apr, [facility] [id number] [place] [address] 51305- 6708 Apr, [facility] [id number] [place] [address] 08435- 3964 Mar, Chronic pain G89.29 ; Headache, unspecified headache type R51 ; Neuropathy G62.9 ; Pain of right hip joint M25.551 and Essential hypertension I10 [facility] [id number] [place] [address] 33671- 2493 Mar, Chronic pain G89.29 [facility] [id number] [place] [address] 50022- 4668 Mar, Bipolar I disorder, most recent episode (or current) mixed, moderate F31.62 [facility] [id number] [place] [address] 14806- 4177 Feb, Bipolar I disorder, most recent episode (or current) mixed, moderate F31.62 and Insomnia, unspecified type G47.00 [facility] [id number] [place] [address] 60506- 5035 Feb, Chronic pain G89.29 [facility] [id number] [place] [address] 28667- 3554 Feb, Bipolar I disorder, most recent episode (or current) mixed, moderate F31.62 [facility] [id number] [place] [address] 54860- 6777 January, Bipolar I disorder, most recent episode (or current) mixed, moderate F31.62 [facility] [id number] [place] [address] 42996- 6364 January, Chronic pain G89.29 [facility] [id number] [place] [address] 40266- 1626 January, Chronic pain G89.29 and Essential hypertension I10 [facility] [id number] [place] [address] 26794- 7535 January, Bipolar I disorder, most recent episode (or current) mixed, moderate F31.62 [facility] [id number] [place] [address] 49509- 6940 Dec, [facility] [id number] [place] [address] 02988- 0559 Dec, [facility] [id number] [place] [address] 19051- 2494 Dec, [facility] [id number] [place] [address] 28426- 4332 Dec, [facility] [id number] [place] [address] 94055- 0844 Nov, Reactive airway disease J45.909 [facility] [id number] [address] Nov, [facility] [id number] [place] [address] 01648- 2909 Nov, [facility] [id number] [place] [address] 71882- 2259 30 Nov, 2015 [facility] [address] [address]- [address]11 Nov, [facility] [id number] [place] [address] [id number]- 6983 Nov, Onychomycosis B35.1 ; [place] M20.40 ; [place] or callus L84 and DM neuro manif type II E11.49 [facility] [id number] [place] [address] 97915- 8204 Nov, Chronic pain G89.29 ; Leukocytosis D72.829 and Diabetes E11.9 [facility] [id number] [place] [address] 66263- 1092 Nov, [facility] [id number] [place] [address] 36008- 8608 Oct, Bronchitis J40 [facility] [id number] [place] [address] 43604- 9019 Oct, [facility] [id number] [place] [address] 48407- 0154 Oct, [facility] [id number] [place] [address] 63618- 5224 Oct, Mastoiditis, unspecified laterality H70.90 and Type 2 diabetes mellitus with complication E11.8 [facility] [id number] [place] [address] 57666- 3598 Sep, [facility] [id number] [place] [address] 72370- 3627 Sep, Dysuria R30.0 ; Cough R05 ; Benign prostatic hyperplasia with lower urinary tract symptoms, unspecified morphology N40.1 ; Hypokalemia E87.6 and Eustachian tube dysfunction, unspecified laterality H69.80 [facility] [id number] [place] [address] 00141- 2511 Sep, Moderate mixed bipolar I disorder F31.62 [facility] [id number] [place] [address] 20891- 7669 Sep, Hypokalemia E87.6 [facility] [address] 02778- 0314 Sep, [facility] [address] 33720- 7481 Sep, Upper respiratory tract infection, unspecified type J06.9 [facility] [id number] [place] [address] 40882- 5543 Aug, [facility] [id number] [place] [address] 82424- 5818 Aug, Dysuria R30.0 [facility] [id number] [place] [address] 21838- 7737 Aug, [facility] [id number] [place] [address] 98055- 3301 Jul, [facility] [id number] [place] [address] 63746- 2756 Jul, [facility] [id number] [place] [address] 41073- 5779 Jul, [facility] [id number] [place] [address] 06856- 3886 Jul, [facility] [id number] [place] [address] 26085- 2389 Jun, [facility] [id number] [place] [address] 70867- 5524 Jun, [facility] [address] [place] [address]- 9413 Jun, [facility] [id number] [place] [address] 05693- 6149 May, [facility] [id number] [place] [address] 39336- 8824 May, Bipolar I disorder, most recent episode (or current) mixed, moderate 296.62 [facility] [id number] [place] [address] 22356- 3240 May, [facility] [id number] [place] [address] 61037- 7115 May, Bipolar I disorder, most recent episode (or current) mixed, moderate 296.62 and Major depressive disorder, recurrent episode, severe, specified as with psychotic behavior 296.34 [facility] [id number] [place] [address] 01988- 5414 May, Bipolar I disorder, most recent episode (or current) mixed, moderate 296.62 [facility] [id number] [place] [address] 46271- 2023 May, [facility] [id number] [place] [address] 93941- 4545 Apr, [facility] [id number] [place] [address] 71967- 2763 Apr, [facility] [id number] [place] [address] 86756- 1251 Apr, Unspecified disorder of kidney and ureter 593.9 and Diabetes mellitus type 2, uncontrolled 250.02 [facility] [id number] [place] [address] 96651- 5809 Apr, [facility] [id number] [place] [address] 69351- 7519 Apr, [facility] [address] [address]- 3345 Apr, [facility] [address] [address]- 7515 Apr, [facility] [id number] [place] [address] 74407- 9001 Apr, Diabetes mellitus type II, uncontrolled 250.02 [facility] [id number] [address]- 5551 Apr, [facility] [id number] [place] [address] 22227- 7241 Mar, [facility] [id number] [place] [address] 14713- 3211 Mar, [facility] [id number] [place] [address] 94262- 1642 Mar, [facility] [id number] [place] [address] 64780- 7489 Mar, Major depressive disorder, recurrent episode, severe, specified as with psychotic behavior 296.34 and Bipolar I disorder, most recent episode (or current) mixed, moderate 296.62 [facility] [id number] [place] [address] 17938- 5195 Mar, Diabetes 250.00 ; Anuria 788.5 ; Nausea and vomiting 787.01 and Diarrhea 787.91 [facility] [address] [address]- 7401 Mar, Diabetes 250.00 [facility] [id number] [place] [address] 49605- 3443 Mar, [facility] [address] [address]- 0428 Mar, Diabetes 250.00 [facility] [id number] [place] [address] 18402- 6120 Mar, [facility] [id number] [place] [address] 40744- 6650 Mar, [facility] [id number] [place] [address] 21606- 0161 Mar, [facility] [id number] [place] [address] 44036- 8262 Mar, [facility] [id number] [place] [address] 93648- 5921 Mar, Bipolar I disorder, most recent episode (or current) mixed, moderate 296.62 and Major depressive disorder, recurrent episode, severe, specified as with psychotic behavior 296.34 [facility] [id number] [place] [address] 10742- 3163 Mar, Magnesium deficiency 275.2 ; Hypokalemia 276.8 ; Nausea & vomiting 787.01 and Diabetes mellitus type 2, uncontrolled 250.02 [facility] [id number] [place] [address] 36199- 0795 Feb, [facility] [address] 34730- 3602 Feb, Bipolar I disorder, most recent episode (or current) mixed, moderate 296.62 [facility] [id number] [place] [address] 04160- 8733 Feb, Nausea and vomiting 787.01 ; Left elbow pain 719.42 ; Anuria 788.5 and Diabetes 250.00 [facility] [id number] [place] [address] 73096- 7953 Feb, [facility] [id number] [place] [address] 36358- 7377 Feb, Hypopotassemia 276.8 and Hypokalemia 276.8 [facility] [id number] [place] [address] 73176- 1142 Feb, Hypopotassemia 276.8 and Hypokalemia 276.8 [facility] [id number] [place] [address] 33187- 0683 Feb, Seborrheic keratoses 702.19 [facility] [address] [place] [address]- 9805 Feb, Hypopotassemia 276.8 and Low magnesium levels 275.2 [facility] [id number] [place] [address] 71634- 7011 January, [facility] [id number] [place] [address] 26010- 8253 January, [facility] [id number] [place] [address] 22132- 9278 January, [facility] [id number] [place] [address] 07243- 5575 January, Scalp lesion 709.9 [facility] [id number] [place] [address] 17835- 5893 January, [facility] [id number] [place] [address] 07809- 9563 Dec, Tear of medial cartilage or meniscus of knee, current 836.0 and 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 [facility] [id number] [place] [address] 69994- 6552 Dec, [facility] [id number] [place] [address] 21799- 1261 Dec, [facility] [id number] [place] [address] 70285- 7891 Dec, Squamous cell carcinoma, 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 [facility] [id number] [place] [address] 63163- 2283 Dec, [facility] [id number] [place] [address] 48043- 8477 Dec, [facility] [id number] [place] [address] 02688- 3609 Nov, [facility] [id number] [address]- 1574 Nov, [facility] [id number] [address]- 4647 Nov, 2014 [facility] [place] [facility] [address] [id number] [place] [address]- 1734 Nov, [facility] [place] [facility] [address] [id number] [place] [address]- 5004 Nov, 2014 [facility] [place] [facility] [address] [facility] [id number] [place] [address]- 6202 Nov, 2014 [facility] [place] [facility] [address] [id number] [place] [address]- 7376 Nov, 2014 [facility] [place] [facility] [address] [id number] [place] [address]- 1965 Nov, [facility] [place] [facility] [address] [facility] [id number] [place] [address]- 2434 Nov, 2014 [facility] [place] [facility] [address] [facility] [id number] [place] [address]- 1797 Nov, 2014 [facility] [place] [facility] [address] [facility] [id number] [place] [address]- 7405 Nov, [facility] [place] [facility] [address] [facility] [id number] [place] [address]- 9170 Nov, 2014 [facility] [place] [facility] [address] [facility] [id number] [place] [address]- 1833 Oct, 2014 [facility] [place] [facility] [address] [facility] [id number] [place] [address]- 0392 Oct, 2014 [facility] [place] [facility] [address] [facility] [id number] [place] [address]- 3758 Oct, 2014 [facility] [place] [facility] [address] [id number] [place] [address]- 5939 Oct, 2014 [facility] [place] [facility] [address] [facility] [id number] [place] [address]- 4886 Oct, 2014 [facility] [place] [facility] [address] [facility] [id number] [place] [address]- 2658 Oct, [facility] [place] [facility] [address] [id number] [place] [address]- 8027 Oct, [facility] [place] [facility] [address] [id number] [place] [address]- 0197 Oct, [facility] [place] [facility] [address] [id number] [place] [address]- 3135 Oct, [facility] [place] [facility] [address] [id number] [place] [address]- 1677 Sep, [facility] [place] [facility] [address] [id number] [place] [address]- 7487 Sep, [facility] [place] [facility] [address] [id number] [place] [address]- 0142 Sep, [facility] [place] [facility] [address] [id number] [place] [address]- 0134 Sep, [facility] [place] [facility] [address] [id number] [place] [address]- 8883 Sep, [facility] [place] [facility] [address] [id number] [place] [address]- 1222 Sep, [facility] [place] [facility] [address] [id number] [place] [address]- 1050 Sep, [facility] [place] [facility] [address] [id number] [address]- 1306 Sep, [facility] [place] [facility] [address] [id number], [place] [address]- 1439 Sep, [facility] [place] [facility] [address] [id number] [place] [address]- 1918 Sep, [facility] [place] [facility] [address] [id number], [place] [address]- 0095 Sep, [facility] [place] [facility] [address] [id number] [place] [address]- 8750 Sep, [facility] [place] [facility] [address] [id number] [place] [address]- 1067 07 Sep, 2014 [facility] [address] [id number] [place] [address]- 3995 Sep, [facility] [address] [id number] [place] [address]- 1513 Sep, [facility] [address] [id number] [place] [address]- 9945 Sep, [facility] [address] [id number] [place] [address]- 1529 Aug, [facility] [address] [id number] [place] [address]- 2234 Aug, [facility] [address] [id number] [place] [address]- 7608 Aug, [facility] [address] [id number] [place] [address]- 8287 Aug, [facility] [address] [id number] [place] [address]- 4848 Aug, [facility] [address] [id number] [place] [address]- 6357 Aug, [facility] [address] [id number] [place] [address]- 4405 Aug, [facility] [address] [id number] [place] [address]- 6681 Aug, [facility] [address] [id number] [place] [address]- 2424 Aug, [facility] [address] [id number] [place] [address]- 6684 Aug, [facility] [address] [id number] [place] [address]- 2593 Aug, [facility] [address] [place] [id number] 10 Aug, 2014 [facility] [place] [facility] [address] [id number] [place] [address]- 2177 10 Aug, 2014 [facility] [place] [facility] [address] [id number] [place] [address]- 9806 Aug, [facility] [place] [facility] [address] [id number] [place] [address]- 0576 Aug, [facility] [place] [facility] [address] [id number] [place] [address]- 8966 Aug, [facility] [place] [facility] [address] [id number] [place] [address]- 9254 Aug, [facility] [place] [facility] [address] [id number] [place] [address]- 8960 Aug, [facility] [place] [facility] [address] [id number] [place] [address]- 8190 Aug, [facility] [place] [facility] [address] [id number] [place] [address]- 4434 Aug, [facility] [place] [facility] [address] [id number] [place] [address]- 9373 Aug, [facility] [place] [facility] [address] [id number] [place] [address]- 4116 Aug, [facility] [place] [facility] [address] [id number] [place] [address]- 6767 Aug, [facility] [place] [facility] [address] [id number] [place] [address]- 2881 Aug, [facility] [place] [facility] [address] [id number] [place] [address]- 5142 Aug, [facility] [place] [facility] [address] [id number] [place] [address]- 1245 Aug, [facility] [place] [facility] [address] [id number] [place] [address]- 7097 Aug, [facility] [place] [facility] [address] [id number] [place] [address]- 2422 Aug, [facility] [place] [facility] [address] [id number] [place] 0098 Aug, [facility] [place] [facility] [address] [id number] [place] [address]- 8709 Aug, [facility] [place] [facility] [address] [id number] [place] [address]- 2556 Jul, [facility] [place] [facility] [address] [id number] [place] [address]- 5129 Jul, [facility] [place] [facility] [address] [id number] [place] [address]- 2440 Jul, [facility] [place] [facility] [address] [id number] [place] [address]- 1535 Jul, [facility] [place] [facility] [address] [id number] [place] [address]- 7641 Jul, [facility] [place] [facility] [address] [id number] [place] [address]- 2818 Jul, [facility] [place] [facility] [address] [id number] [place] [address]- 3429 Jul, [facility] [place] [facility] [address] [id number] [place] [address]- 6514 Jul, [facility] [place] [facility] [address] [id number] [place] [address]- 9054 Jul, [facility] [place] [facility] [address] [id number] [place] [address]- 5190 Jul, [facility] [place] [facility] [address] [id number] [place] [address]- 8983 Jun, [facility] [place] [facility] [address] [id number] [place] [address]- 5164 Jun, [facility] [place] [facility] [address] [id number] [place] 6030 Jun, [facility] [place] [facility] [address] [id number], [place] [address]- 4021 16 Jun, 2014 [facility] [place] [facility] [address] [id number] [place] [address]- 2777 15 Jun, 2014 [facility] [place] [facility] [address] [id number] [place] [address]- 0958 15 Jun, 2014 [facility] [place] [facility] [address] [id number] [place] [address]- 8588 05 Jun, 2014 [facility] [place] [facility] [address] [id number] [place] [address]- 1121 05 Jun, 2014 [facility] [place] [facility] [address] [id number] [place] [address]- 6385 Jun, [facility] [place] [facility] [address] [id number] [place] [address]- 3544 Jun, [facility] [place] [facility] [address] [id number] [place] [address]- 9332 29 Sep, 2013 [facility] [place] [facility] [address] [id number] [place] [address]- 9180 29 Sep, 2013 [facility] [place] [facility] [address] [id number] [place] [address]- 3111 26 Sep, 2013 [facility] [place] [facility] [address] [id number] [place] [address]- 8068 26 Sep, 2013 [facility] [place] [facility] [address] [id number] [place] [address]- 9756 17 Sep, 2013 [facility] [place] [facility] [address] [id number], [place] [address]- 2541 17 Sep, 2013 [facility] [place] [facility] [address] [id number] [place] [address]- 6039 15 Sep, 2013 [facility] [place] [facility] [address] [id number], [place] [address]- 2543 15 Sep, 2013 [facility] [place] [facility] [address] [id number], [place] [address]- 5598 15 Sep, 2013 [facility] [place] [facility] [address] [id number] [place] [address]- 0111 15 May, 2013 [facility] [place] [facility] [address] [id number] [place] [address] 2546 10 May, 2013 [facility] [place] [facility] [address] [id number] [place] [address] 2546 10 May, 2013 [facility] [place] [facility] [address] [id number] [place] [address] 2546 09 May, 2013 [facility] [place] [facility] [address] [id number] [place] [address] 2546 09 May, 2013 [facility] [place] [facility] [address] [id number] [place] [address] 2546 04 May, 2013 [facility] [place] [facility] [address] [id number] [place] [address]- 0176 May, 2013 [facility] [place] [facility] [address] [id number] [place] [address]- 2290 Apr, [facility] [place] [facility] [address] [id number] [place] [address]- 7102 Apr, [facility] [place] [facility] [address] [id number] [place] [address]- 2548 Apr, [facility] [place] [facility] [address] [id number] [place] [address] 2547 Apr, [facility] [place] [facility] [address] [id number] [place] [address]- 2542 Apr, [facility] [place] [facility] [address] [id number] [place] [address] 2549 Apr, [facility] [place] [facility] [address] [id number] [place] [address] 2546 Apr, [facility] [place] [facility] [address] [id number] [place] [address] 2546 Apr, [facility] [place] [facility] [address] [id number] [place] [address] Apr, [facility] [place] [facility] [address] [id number] [place] [address]84 Apr, [facility] [place] [facility] [address] [id number] [place] [address] Apr, [facility] [place] [facility] [address] [id number] [place] [address] Apr, [facility] [place] [facility] [address] [id number] [place] [address] Apr, [facility] [place] [facility] [address] [id number] [place] [address] Apr, [facility] [place] [facility] [address] [id number] [place] [address] Apr, [facility] [place] [facility] [address] [id number] [place] [address] Mar, [facility] [place] [facility] [address] [id number] [place] [address] 1946 Mar, [facility] [place] [facility] [address] [id number] [place] [address]- [address] Mar, [facility] [place] [facility] [address] [id number] [place] [address]283 Mar, [facility] [place] [facility] [address] [id number] [place] [address] 79[address] Mar, [facility] [place] [facility] [address] [id number] [place] [address] 139[address] Mar, [facility] [place] [facility] [address] [id number] [place] [address]- [address] Mar, [facility] [place] [facility] [address] [id number] [place] [address]- [address] Mar, [facility] [place] [facility] [address] [id number] [place] [address]- 1069 Mar, [facility] [place] [facility] [address] [id number] [place] [address] Mar, 2013 [facility] [place] [facility] [address] [id number] [place] [address]- [address] Mar, 2013 [facility] [place] [facility] [address] [id number] [place] [address]- 119[address] Mar, 2013 [facility] [place] [facility] [address] [id number] [place] [address]- [address] Mar, 2013 [facility] [place] [facility] [address] [id number] [place] [address]- [address] Mar, 2013 [facility] [place] [facility] [address] [id number] [place] [address]- 60[address] Mar, 2013 [facility] [place] [facility] [address] [id number] [place] [address]- [address] Mar, 2013 [facility] [place] [facility] [address] [id number] [place] [address]- [address]67 Mar, 2013 [facility] [place] [facility] [address] [id number] [place] [address] 1938 Mar, [facility] [place] [facility] [address] [id number] [place] [address] 9727 Feb, [facility] [place] [facility] [address] [id number] [place] [address]- 8282 Feb, [facility] [place] [facility] [address] [id number] [place] [address]- 2059 Feb, [facility] [place] [facility] [address] [id number] [place] [address]- 12[address] Feb, [facility] [place] [facility] [address] [id number] [place] [address]- 9183 Feb, [facility] [place] [facility] [address] [id number] [place] [address]- [address] Feb, [facility] [place] [facility] [address] [id number] [place] [address]- 1480 Feb, [facility] [place] [facility] [address] [id number] [place] [address] 284[address] Feb, [facility] [place] [facility] [address] [id number] [place] [address]- 6035 Feb, [facility] [place] [facility] [address] [id number] [place] [address] Feb, [facility] [place] [facility] [address] [id number] [place] [address]- 0925 Feb, [facility] [place] [facility] [address] [id number] [place] [address]- [address]289 Feb, [facility] [place] [facility] [address] [id number] [place] [address]- [address] Feb, [facility] [place] [facility] [address] [id number] [place] [address] Feb, [facility] [place] [facility] [address] [id number] [place] [address]- [address] January, [facility] [place] [facility] [address] [id number] [place] [address]- [address] January, [facility] [place] [facility] [address] [id number] [place] [address]- [address] January, [facility] [place] [facility] [address] [id number] [place] [address]- [address] January, [facility] [place] [facility] [address] [id number] [place] [address]- 8028 January, [facility] [place] [facility] [address] [id number] [place] [address]- 2089 January, [facility] [place] [facility] [address] [id number] [place] [address]- [address] January, [facility] [place] [facility] [address] [id number] [place] [address] January, [facility] [place] [facility] [address] [id number] [place] [address]- 6773 January, [facility] [place] [facility] [address] [id number] [place] [address]- 7572 January, [facility] [place] [facility] [address] [id number] [place] [address]- [address]207 January, [facility] [place] [facility] [address] [id number] [place] [address]- 8047 January, [facility] [place] [facility] [address] [id number] [place] [address]- [address] January, [facility] [place] [facility] [address] [id number] [place] [address]- 409[address] January, [facility] [place] [facility] [address] [id number] [place] [address]- 1837 Dec, [facility] [place] [facility] [address] [id number] [place] [address]- [address]177 Dec, [facility] [place] [facility] [address] [id number] [place] [address]- 3280 Dec, [facility] [place] [facility] [address] [id number] [place] [address]- [address]278 Dec, [facility] [place] [facility] [address] [id number] [place] [address]- 6264 Dec, [facility] [place] [facility] [address] [id number] [place] [address]- 4786 Dec, [facility] [place] [facility] [address] [id number] [place] [address]- 2010 Dec, [facility] [place] [facility] [address] [id number] [place] [address]- 3077 Dec, [facility] [place] [facility] [address] [id number] [place] [address]- 1306 Dec, [facility] [place] [facility] [address] [id number] [place] [address]- 1589 Dec, [facility] [place] [facility] [address] [address] [id number] [place] [address] Nov, [facility] [place] [facility] [address] [id number] [place] [address]120 Nov, [facility] [place] [facility] [address] [id number] [place] [address] 2773 Nov, [facility] [place] [facility] [address] [id number] [place] [address] 2868 Nov, [facility] [place] [facility] [address] [id number] [place] [address] 2204 Nov, [facility] [place] [facility] [address] [id number] [place] [address] 7381 Nov, [facility] [place] [facility] [address] [id number] [place] [address] 4170 Nov, [facility] [place] [facility] [address] [id number] [place] [address]- 4577 Nov, [facility] [place] [facility] [address] [id number] [place] [address] 6507 Nov, [facility] [place] [facility] [address] [id number] [place] [address]- 6677 Nov, [facility] [place] [facility] [address] [id number] [place] [address] 2518 Oct, [facility] [place] [facility] [address] [id number] [place] [address]- 8390 Oct, [facility] [place] [facility] [address] [id number] [place] [address]- 7992 Oct, [facility] [place] [facility] [address] [id number] [place] [address]- 2597 Oct, [facility] [place] [facility] [address] [id number] [place] [address]- 4230 Oct, [facility] [place] [facility] [address] [id number] [place] [address]- 7835 Oct, [facility] [place] [facility] [address] [id number] [place] [address]- 4489 Oct, [facility] [place] [facility] [address] [id number] [place] [address] Oct, [facility] [place] [facility] [address] [id number] [place] [address]- 4376 Oct, [facility] [place] [facility] [address] [id number] [place] [address]- 1553 Oct, [facility] [place] [facility] [address] [id number] [place] [address]- 3474 Oct, [facility] [place] [facility] [address] [id number] [place] [address]- 2097 Oct, [facility] [place] [facility] [address] [id number] [place] [address]- 7708 Oct, [facility] [place] [facility] [address] [id number] [place] [address]- 2516 Oct, [facility] [place] [facility] [address] [id number] [place] [address]- 6230 Sep, [facility] [place] [facility] [address] [id number] [place] [address]- 6346 Sep, [facility] [place] [facility] [address] [id number] [place] [address]- 6921 Sep, [facility] [place] [facility] [address] [id number] [place] [address]- 7258 Sep, [facility] [place] [facility] [address] [id number] [place] [address]- 9878 Sep, [facility] [place] [facility] [address] [id number] [place] [address]- 6726 Sep, [facility] [place] [facility] [address] [id number], [place] [address]- 6682 Sep, [facility] [place] [facility] [address] [id number] [place] [address]- 2106 Sep, [facility] [place] [facility] [address] [id number] [place] [address]- 9373 Sep, [facility] [place] [facility] [address] [id number] [place] [address]- 8957 Sep, [facility] [place] [facility] [address] [id number] [place] [address]- 6221 Aug, [facility] [place] [facility] [address] [id number] [place] [address]- 2257 Aug, [facility] [place] [facility] [address] [id number] [place] [address]- 4956 Jul, [facility] [place] [facility] [address] [id number] [place] [address]- 5221 Jul, [facility] [place] [facility] [address] [id number] [place] [address]- 5335 Jul, [facility] [place] [facility] [address] [id number] [place] [address]- 7534 Jul, [facility] [place] [facility] [address] [id number] [place] [address]- 1733 Jul, [facility] [place] [facility] [address] [id number] [place] [address]- 7778 Jul, [facility] [place] [facility] [address] [id number] [place] [address]- 0247 Jul, [facility] [place] [facility] [address] [id number] [place] [address]- 5224 Jul, [facility] [place] [facility] [address] [id number] [place] [address]- 6930 Jul, [facility] [place] [facility] [address] [id number] [place] [address]- 5921 Jul, [facility] [place] [facility] [address] [id number], [place] [address]- 2389 Jul, [facility] [place] [facility] [address] [id number] [place] [address]- 1283 Jul, [facility] [place] [facility] [address] [id number][place] [address] Jul, [facility] [place] [facility] [address] [facility] [id number], [place] [address]- 9636 Jul, [facility] [place] [facility] [address] [id number], [place] [address]- 9372 Jul, [facility] [place] [facility] [address] [id number] [place] [address]- 8795 Jul, [facility] [place] [facility] [address] [id number], [place] [address]- 1783 Jul, [facility] [place] [facility] [address] [id number], [place] [address]- 2503 Jul, [facility] [place] [facility] [address] [id number], [place] [address]- 3834 Jul, [facility] [place] [facility] [address] [id number], [place] [address]- 0387 Jun, [facility] [place] [facility] [address] [id number], [place] [address]- 6229 Jun, [facility] [place] [facility] [address] [id number], [place] [address]- 6075 Jun, 2012 [facility] [place] [facility] [address] [id number], [place] [address]- 7726 16 Jun, 2013 [facility] [place] [facility] [address] [id number], [place] [address]- 6560 Jun, [facility] [place] [facility] [address] [id number], [place] [address]- 1944 16 Jun, 2013 [facility] [place] [facility] [address] [id number], [place] [address]- 6259 Jun, [facility] [place] [facility] [address] [id number] [place] [address]- 0281 Jun, [facility] [address] [id number] [place] [address]- 1425 Jun, [facility] [place] [facility] [address] [id number] [place] [address]- 8376 Jun, [facility] [address] [id number] [place] [address]- 4037 Jun, [facility] [place] [facility] [address] [id number] [place] [address]- 0852 26 May, 2012 [facility] [address] [id number] [place] [address]- 9939 25 May, 2012 [facility] [address] [id number] [place] [address]- 6232 19 May, 2012 [facility] [place] [facility] [address] [id number] [place] [address]- 2202 17 May, 2012 [facility] [address] [id number] [place] [address]- 8459 11 May, 2013 [facility] [place] [facility] [address] [id number] [place] [address]- 0082 May, [facility] [address] [id number] [place] [address]- 1373 May, [facility] [place] [facility] [address] [id number] [place] [address]- 2545 05 May, 2013 [facility] [place] [facility] [address] [id number] [place] [address]- 2549 Apr, [facility] [place] [facility] [address] [id number] [place] [address]- 0126 Apr, [facility] [place] [facility] [address] [id number] [place] [address]- 2548 Apr, [facility] [place] [facility] [address] [id number] [place] [address]- 6891 Apr, [facility] [address] [id number] [place] [address]- 0252 Apr, [facility] [place] [facility] [address] [id number] [place] [address]- 5686 Mar, [facility] [place] [facility] [address] [id number] [place] [address]- 9344 Mar, [facility] [place] [facility] [address] [id number] [place] [address]- 8048 Mar, [facility] [place] [facility] [address] [id number] [place] [address]- 3931 Mar, [facility] [place] [facility] [address] [id number] [place] [address]- 7715 Mar, [facility] [place] [facility] [address] [id number] [place] [address]- 8710 Mar, [facility] [place] [facility] [address] [id number] [place] [address]- 6126 Mar, [facility] [place] [facility] [address] [id number] [place] [address]- 0800 Mar, [facility] [place] [facility] [address] [id number] [place] [address]- 7479 Feb, [facility] [place] [facility] [address] [id number] [place] [address]- 6654 Feb, [facility] [place] [facility] [address] [id number], [place] [address]- 7476 January, [facility] [place] [facility] [address] [id number] [place] [address]- 2514 January, [facility] [place] [facility] [address] [id number] [place] [address]- 9888 Dec, [facility] [place] [facility] [address] [id number] [place] [address]- 1318 Dec, [facility] [place] [facility] [address] [id number] [place] [address]- 7597 23 Nov, 2012 [facility] [address] [id number] [place] [address] 2546 Nov, [facility] [address] [id number] [place] [address]- 9606 Nov, [facility] [address] [id number] [place] [address]- 0443 Nov, [facility] [address] [id number] [place] [address]- 5367 27 Oct, 2012 [facility] [address] [id number] [place] [address]- 4166 26 Oct, 2012 [facility] [address] [id number] [place] [address]- 6286 26 Oct, 2012 [facility] [address] [id number] [place] [address]- 3593 26 Oct, 2012 [facility] [address] [id number] [place] [address]- 2358 16 Oct, 2012 [facility] [address] [id number] [place] [address]- 8181 14 Oct, 2012 [facility] [address] [id number] [place] [address]- 5887 08 Oct, 2012 [facility] [address] [id number] [place] [address] 2546 07 Oct, 2012 [facility] [address] [id number] [place] [address] 254 03 Oct, 2012 [facility] [place] [facility] [address] [id number] [place] [address]- 9590 30 Sep, 2012 [facility] [place] [facility] [address] [id number] [place] [address]- 2541 29 Sep, 2012 [facility] [place] [facility] [address] [id number] [place] [address]- 3303 Sep, [facility] [address] [id number] [place] [address]- 9707 Sep, [facility] [place] [facility] [address] [id number] [place] [address]- 7734 17 Sep, 2012 [facility] [place] [facility] [address] [id number] [place] [address]- 8321 10 Sep, 2012 [facility] [place] [facility] [address] [id number] [place] [address]- 8621 Sep, [facility] [place] [facility] [address] [id number] [place] [address]- 7277 Sep, [facility] [place] [facility] [address] [id number] [place] [address]- 7262 Aug, [facility] [place] [facility] [address] [id number] [place] [address]- 6689 Aug, [facility] [place] [facility] [address] [id number] [place] [address]- 7886 Aug, [facility] [place] [facility] [address] [id number] [place] [address]- 5705 Aug, [facility] [place] [facility] [address] [id number] [place] [address]- 3582 Aug, [facility] [place] [facility] [address] [id number] [place] [address]- 8462 Aug, [facility] [place] [facility] [address] [id number], [place] [address]- 0158 Aug, [facility] [place] [facility] [address] [id number] [place] [address]- 7783 Aug, [facility] [place] [facility] [address] [id number] [place] [address]- 4635 Jul, [facility] [place] [facility] [address] [id number] [place] [address]- 2153 Jul, [facility] [place] [facility] [address] [id number], [place] [address]- 3726 Jul, [facility] [place] [facility] [address] [id number] [place] [address]- 7941 Jul, [facility] [place] [facility] [address] [facility] [id number], [place] [address]- 0554 Jul, [facility] [place] [facility] [address] [facility] [id number] [place] [address]- 6059 Jul, [facility] [place] [facility] [address] [id number], [place] [address]- 2511 Jun, [facility] [place] [facility] [address] [facility] [id number] [place] [address], [place] [address]- 5810 Jun, [facility] [place] [facility] [address] [facility] [id number] [place] [address]- 7776 Jun, [facility] [place] [facility] [id number] [place] [address]- 8155 Jun, [facility] [place] [facility] [address] [facility] [id number], [place] [address]- 2478 Jun, [facility] [place] [facility] [address] [id number] [place] [address]- 4920 Jun, [facility] [place] [facility] [address] [facility] [id number], [place] [address]- 3329 Jun, [facility] [place] [facility] [address] [facility] [id number], [place] [address]- 6421 Jun, [facility] [place] [facility] [address] [facility] [id number], [place] [address]- 2825 10 Jun, 2012 [facility] [place] [facility] [address] [facility] [id number], [place] [address]- 1456 26 May, 2012 [facility] [place] [facility] [address] [facility] [id number], [place] [address]- 2652 24 May, 2012 [facility] [place] [facility] [address] [id number], [place] [address]- 2229 18 May, 2012 [facility] [place] [facility] [address] [id number] [place] [address]- 4751 30 Apr, 2012 [facility] [place] [facility] [address] [id number] [place] [address]- 9902 Apr, [facility] [place] [facility] [address] [id number] [place] [address]- 8789 Apr, [facility] [place] [facility] [address] [id number] [place] [address]- 1203 Apr, [facility] [place] [facility] [address] [id number] [place] [address]- 9865 Apr, [facility] [place] [facility] [address] [id number] [place] [address]- 0240 Apr, [facility] [place] [facility] [address] [id number] [place] [address]- 1674 Mar, [facility] [place] [facility] [address] [id number] [place] [address]- 9657 Mar, [facility] [place] [facility] [address] [id number] [place] [address]- 8449 Mar, [facility] [place] [facility] [address] [id number] [place] [address]- 5215 Mar, [facility] [place] [facility] [address] [id number] [place] [address]- 8206 Feb, [facility] [place] [facility] [address] [id number] [place] [address]- 2505 Feb, [facility] [place] [facility] [address] [id number] [place] [address]- 8392 Feb, [facility] [place] [facility] [address] [id number] [place] [address]- 4181 Feb, [facility] [place] [facility] [address] [id number] [place] [address]- 1750 Feb, [facility] [place] [facility] [address] [id number] [place] [address]- 8607 January, [facility] [address] [id number] [place] [address]- 1037 January, [facility] [place] [facility] [address] [id number] [place] [address]- 6589 January, [facility] [address] [id number] [place] [address]- 6319 January, [facility] [place] [facility] [address] [id number] [place] [address]- 3925 January, [facility] [address] [id number] [place] [address]- 2661 January, [facility] [address] [id number] [place] [address]- 9707 Dec, [facility] [place] [facility] [address] [id number] [place] [address]- 1688 Dec, [facility] [place] [facility] [address] [id number] [place] [address]- 5266 Dec, [facility] [place] [facility] [address] [id number] [place] [address]- 4089 Dec, [facility] [place] [facility] [address] [id number] [place] [address]- 6297 Dec, [facility] [place] [facility] [address] [id number] [place] [address]- 7919 Nov, [facility] [place] [facility] [address] [id number], [place] [address]- 8036 Nov, [facility] [place] [facility] [address] [id number] [place] [address]- 4106 Nov, [facility] [place] [facility] [address] [id number] [place] [address]- 8676 Nov, [facility] [place] [facility] [address] [id number] [place] [address]- 9597 Oct, [facility] [place] [facility] [address] [id number] [place] [address]- 6556 28 Oct, 2011 [facility] [address] [id number] [place] [address]- 8046 24 Oct, 2011 [facility] [place] [facility] [address] [id number] [place] [address]- 2546 13 Oct, 2011 [facility] [address] [id number] [place] [address]- 3146 08 Oct, 2011 [facility] [place] [facility] [address] [id number] [place] [address] 2546 Sep, [facility] [address] [id number] [place] [address]- 4976 Sep, [facility] [place] [facility] [address] [id number] [place] [address]- 8856 Sep, [facility] [address] [id number] [place] [address] 2549 Sep, [facility] [address] [id number] [place] [address]- 0756 Sep, [facility] [place] [facility] [address] [id number] [place] [address]- 0519 Sep, [facility] [address] [id number] [place] [address]- 2901 Aug, [facility] [place] [facility] [address] [id number] [place] [address] 2546 Aug, [facility] [place] [facility] [address] [id number] [place] [address]- 2546 Aug, [facility] [place] [facility] [address] [id number] [place] [address] 2546 Jul, [facility] [place] [facility] [address] [id number] [place] [address]- 2546 Jul, [facility] [place] [facility] [address] [id number] [place] [address]- 1062 Jul, [facility] [place] [facility] [address] [id number] [place] [address]- 9610 Jul, [facility] [place] [facility] [address] [id number] [place] [address]- 7180 Jun, [facility] [place] [facility] [address] [id number] [place] 1653 Jun, [facility] [place] [facility] [address] [id number] [place] [address]- 2159 Jun, [facility] [place] [facility] [address] [id number] [place] [address]- 5574 Jun, [facility] [place] [facility] [address] [id number] [place] [address]- 0047 Jun, [facility] [place] [facility] [address] [id number] [place] [address]- 4045 Jun, [facility] [place] [facility] [address] [id number] [place] [address] Mar, [facility] [place] [facility] [address] [id number] [place] [address] Dec, [facility] [place] [facility] [address] [id number] [place] [address] Dec, [facility] [place] [facility] [address] [id number] [place] [address] Nov, [facility] [place] [facility] [address] [id number] [place] [address] 16 Nov, 2010 [facility] [place] [facility] [address] [id number] [place] [address] Sep, [facility] [place] [facility] [address] [id number] [place] [address] Aug, [facility] [place] [facility] [address] [id number] [place] [address] 29 Aug, 2010 [facility] [place] [facility] [address] [id number] [place] [address] 29 Aug, 2010 [facility] [address] [id number] [place] [address] 29 Aug, 2010 [facility] [place] [facility] [address] [id number] [place] [address] 27 Aug, 2010 [facility] [address] [id number] [place] [address] 2856 14 Aug, 2010 [facility] [place] [facility] [address] [id number] [place] [address] 08 Aug, 2010 [facility] [address] [id number] [place] [address] 08 Aug, 2010 [facility] [place] [facility] [address] [id number] [place] [address]646 07 Aug, 2010 [facility] [address] [facility] [id number] [place] [address]226 06 Aug, 2010 [facility] [place] [facility] [address] [id number] [place] [address] 06 Aug, 2010 [facility] [address] [id number] [place] [address] Aug, [facility] [place] [facility] [address] [facility] [id number] [place] [address] 30 Jul, 2010 [facility] [place] [facility] [address] [id number] [place] [address]146 30 Jul, 2010 [facility] [place] [facility] [address] [id number], [place] [address] 30 Jul, 2010 [facility] [place] [facility] [address] [id number], [place] [address] 17 Jul, 2010 [facility] [place] [facility] [address] [id number], [place] [address] 08 Jul, 2010 [facility] [place] [facility] [address] [facility] [id number], [place] [address] Jul, [facility] [place] [facility] [address] [id number] [place] [address] 24 Jun, 2010 [facility] [place] [facility] [address] [id number] [place] [address] 9436 19 Jun, 2010 [facility] [place] [facility] [address] [id number] [place] [address] 2546 19 Jun, 2010 [facility] [place] [facility] [address] [id number] [place] [address] 2546 13 Jun, 2010 [facility] [place] [facility] [address] [id number] [place] [address]47 16 Apr, 2010 [facility] [place] [facility] [address] [id number] [place] [address] Mar, [facility] [place] [facility] [address] [id number] [place] [address] Feb, [facility] [place] [facility] [address] [id number] [place] [address] January, [facility] [place] [facility] [address] [id number] [place] [address] 15 Dec, 2009 [facility] [place] [facility] [address] [id number] [place] [address] Nov, [facility] [place] [facility] [address] [id number] [place] [address] 31 Aug, 2009 [facility] [place] [facility] [address] [id number] [place] [address] 23 Aug, 2009 [facility] [place] [facility] [address] [id number] [place] [address] 2544 07 Aug, 2009 [facility] [place] [facility] [address] [id number] [place] [address] 2546 12 Jul, 2009 [facility] [place] [facility] [address] [id number] [place] [address] 2546 09 Jul, 2009 [facility] [place] [facility] [address] [id number] [place] [address] Jul, [facility] [address] [id number], [place] [address] Jun, [facility] [id number], [place] [address] Jun, [facility] [id number], [place] [address] Jun, [facility] [address] [id number] [address] Jun, [facility] [id number], [place] [address] Jun, [facility] [id number], [place] [address] Jun, [facility] [id number], [place] [address] Apr, [facility] [id number], [place] [address] Apr, [facility] [id number], [place] [address] Feb, [facility] [id number], [place] [address] January, [facility] [id number], [place] [address] Dec, IMMUNIZATIONS No Known Immunizations SOCIAL HISTORY Never Assessed REASON FOR VISIT f/u PLAN OF CARE Activity Details Follow Up Next available Reason:depression VITAL SIGNS MEDICATIONS Unknown Medications RESULTS No Results PROCEDURES Procedure Date Ordered Result Body Site [facility] VIS[facility] MENTAL HEALTH ESTAB PT Jun 27, 2018 Psychotherapy, patient &/family, 45 minutes, established patient Jun 27, 2018 INSTRUCTIONS MEDICATIONS ADMINISTERED No Known Medications [...] tunnel release (Left) 2000 [facility] 2013 ([employer]) Surgical History heart cath: CAD w/ [...] History inability to urinate 09/16/15 Hospitalization History [facility] mental health early Hospitalization History hyperkalemia 10/2017 Hospitalization History fluid in lung
--- OUTSIDE RECORDS SUMMARY | 2018-08-08 13:41 | XMS REPORT ---
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 Name Role Phone NOEMI WASHBURN Unavailable PROBLEMS Type Condition ICD9-CM Code [id number] Code Onset Dates Condition Status SNOMED Code Problem Chronic lymphocytic leukemia C91.10 Active 74395333 Problem Lymphocytosis D72.820 Active 68873840 Problem Eye exam abnormal R93.8 Active 436469070 Problem Eustachian tube dysfunction, unspecified laterality H69.80 Active 20028636 Problem Essential hypertension I10 Active 42496624 Problem Dysuria R30.0 Active 11001155 Problem Diabetic polyneuropathy associated with type 2 diabetes mellitus E11.42 Active 30956559 Problem Cough R05 Active 22350549 Problem Polyneuropathy associated with underlying disease G63 Active 673049367 Problem Retinal edema H35.81 Active 5786013 Problem Bilateral primary osteoarthritis of knee M17.0 Active 845435275 Problem Primary osteoarthritis of right knee M17.11 Active 452614212149654 Problem Pure hypercholesterolemia E78.00 Active 728130298 Problem DM neuro manif type II E11.49 Active 27855079 Problem Benign prostatic hyperplasia with lower urinary tract symptoms, unspecified morphology N40.1 Active 039285238 Problem Hypokalemia E87.6 Active 39117594 Problem 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 Active 273446465 Problem Anemia of chronic illness D63.8 Active 208126941 Problem Bipolar disorder, in partial remission, most recent episode depressed F31.75 Active 28247853 Problem Falling R29.6 Active 658059684 Problem Leukocytosis D72.829 Active 091947662 Problem Reactive airway disease J45.909 Active 623890619224 Problem Diabetes E11.9 Active 44018418 Problem Chronic pain G89.29 Active 94969215 Problem Anxiety F41.9 Active 58892931 Problem Morbid obesity E66.01 Active 093449392 Problem Bipolar I disorder, most recent episode (or current) mixed, moderate F31.62 Active 67286762 Problem Insomnia, unspecified type G47.00 Active 915896777 ALLERGIES No Information ENCOUNTERS Encounter Location Date Diagnosis [facility] [id number] [place] [address] 52057- 6171 Jun, [facility] [id number] [place] [address] 38037- 8678 Jun, [facility] [facility] [id number] [place] [address] 51293- 5472 Jun, [facility] [id number] [place] [address] 48537- 7742 May, Chronic pain G89.29 [facility] [id number] [place] [address] 45918- 8669 Apr, [place] [address] 72548- 5422 Apr, Chronic pain G89.29 [facility] [id number] [place] [address] 18261- 9936 Apr, Primary osteoarthritis of right knee M17.11 [place] [id number] [place] [address] 95796- 4541 Mar, [facility] [id number] [place] [address] 53719- 5544 Mar, BMI 50.0-59.9, adult Z68.43 and Bipolar disorder, in partial remission, most recent episode depressed F31.75 [facility] [id number] [place] [address] 85396- 9448 Mar, Diabetes E11.9 ; Pure hypercholesterolemia E78.00 ; Essential hypertension I10 ; Nausea with vomiting, unspecified R11.2 and Headache, unspecified headache type R51 [place] [id number] [place] [address] 21059- 8495 Mar, Bipolar I disorder, most recent episode (or current) mixed, moderate F31.62 [facility] [address] [address] 4807 Mar, Bipolar I disorder, most recent episode (or current) mixed, moderate F31.62 [facility] [address] [address] 8140 Mar, Chronic pain G89.29 [facility] [id number] [place] [address] 18574- 8658 Mar, Bipolar I disorder, most recent episode (or current) mixed, moderate F31.62 [facility] [id number] [place] [address] 28713- 6058 Feb, Bipolar I disorder, most recent episode (or current) mixed, moderate F31.62 [facility] [id number] [place] [address] 00587- 7554 Feb, Chronic pain G89.29 [facility] [id number] [place] [address] 23926- 2216 Feb, Decubitus ulcer of right foot, stage 3 L89.893 and BMI 50.0- 59.9, adult Z68.43 [facility] [id number] [place] [address] 13018- 6016 Feb, Bipolar I disorder, most recent episode (or current) mixed, moderate F31.62 [place] [id number] [place] [address] 80634- 9009 Feb, [facility] [id number] [place] [address] 69680- 3087 January, [facility] [id number] [place] [address] 76614- 4363 January, Chronic pain G89.29 [facility] [address] [address]- 5653 January, Bipolar I disorder, most recent episode (or current) mixed, moderate F31.62 [facility] [id number] [place] [address] 07354- 0968 January, Bipolar I disorder, most recent episode (or current) mixed, moderate F31.62 [facility] [id number] [place] [address] 26132- 6628 Dec, Bipolar I disorder, most recent episode (or current) mixed, moderate F31.62 and BMI 50.0-59.9, adult Z68.43 [facility] [id number] [place] [address] 07833- 8197 Dec, Bipolar I disorder, most recent episode (or current) mixed, moderate F31.62 [facility] [id number] [place] [address] 03110- 0701 Dec, Chronic pain G89.29 [facility] [id number] [place] [address] 31467- 6163 Dec, DM neuro manif type II E11.49 ; Right flank pain R10.9 ; MCC 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 Z79.891 ; Encounter for medication monitoring Z51.81 and BMI 50.0-59.9, adult Z68.43 [facility] [id number] [place] [address] 79215- 9600 Dec, Bipolar I disorder, most recent episode (or current) mixed, moderate F31.62 [facility] [id number] [place] [address] 54822- 6268 Nov, Bipolar I disorder, most recent episode (or current) mixed, moderate F31.62 [facility] [place] [id number] [place] [address] 32709- 5048 Nov, Chronic pain G89.29 [facility] [id number] [place] [address] 62070- 8216 Nov, Bipolar I disorder, most recent episode (or current) mixed, moderate F31.62 [facility] [id number] [place] [address] 97035- 3306 Nov, Hypokalemia E87.6 [facility] [id number] [place] [address] 26799- 3691 Nov, Bipolar I disorder, most recent episode (or current) mixed, moderate F31.62 [facility] [id number] [place] [address] 18035- 4066 Oct, Chronic pain G89.29 [facility] [address] 29790- 8953 Oct, BMI 50.0-59.9, adult Z68.43 and Bipolar I disorder, most recent episode (or current) mixed, moderate F31.62 [facility] [address] 75449- 6702 Oct, Bipolar I disorder, most recent episode (or current) mixed, moderate F31.62 [facility] [address] 72959- 2516 Oct, [facility] [address] 25012- 1983 Oct, Hypokalemia E87.6 [facility] [address] 96235- 2703 Oct, DM neuro manif type II E11.49 [facility] [address] 45908- 1015 Oct, Bipolar I disorder, most recent episode (or current) mixed, moderate F31.62 [facility] [id number] [place] [address] 60688- 1382 Oct, Bipolar I disorder, most recent episode (or current) mixed, moderate F31.62 [place] [address] [address]20 14 Oct, 2017 Hyperkalemia E87.5 ; Falling R29.6 ; BMI 50.0-59.9, adult Z68.43 and Acute left ankle pain M25.572 [place] [address] [place] [address] 64877- 2862 08 Oct, 2017 DM neuro manif type II E11.49 [facility] [id number] [place] [address] 94107- 5076 Oct, [facility] [id number] [place] [address] 47848- 6171 Sep, Chronic pain G89.29 [facility] [id number] [place] [address] 78100- 2174 Sep, [facility] [id number] [place] [address] 31143- 2248 Sep, Bilateral primary osteoarthritis of knee M17.0 [place] [id number] [place] [address] 54211- 1318 Sep, Generalized edema R60.1 [place] [id number] [place] [address] 09624- 7174 Sep, Bipolar I disorder, most recent episode (or current) mixed, moderate F31.62 [place] [id number] [place] [address] 00662- 8305 15 Sep, 2017 Hypoxia R09.02 ; Other hypervolemia E87.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 ; Anemia of chronic illness D63.8 and BMI 50.0- 59.9, adult Z68.43 [facility] [id number] [place] [address] 27321- 8452 Sep, [place] [id number] [place] [address] 61426- 6681 Sep, Bipolar I disorder, most recent episode (or current) mixed, moderate F31.62 [place] [id number] [place] [address] 99844- 7710 Aug, Chronic pain G89.29 [facility] [address] [address]- 7508 Aug, Generalized edema R60.1 [facility] [id number] [place] [address] 32068- 7856 Aug, [facility] [id number] [place] [address] 34677- 3460 Aug, [facility] [id number] [place] [address] 346516- 2021 14 Aug, 2017 Bipolar I disorder, most recent episode (or current) mixed, moderate F31.62 [facility] [id number] [place] [address] 264743- 5052 Aug, Bipolar I disorder, most recent episode (or current) mixed, moderate F31.62 [facility] [id number] [place] [address] 69017- 9366 Aug, Chronic pain G89.29 [facility] [id number] [place] [address] 72363- 1573 Jul, Bipolar I disorder, most recent episode (or current) mixed, moderate F31.62 [facility] [id number] [place] [address] 14108- 8133 Jul, Bipolar I disorder, most recent episode (or current) mixed, moderate F31.62 and BMI 60.0-69.9, adult Z68.44 [facility] [id number] [place] [address] 18633- 4827 16 Jul, 2017 Bipolar I disorder, most recent episode (or current) mixed, moderate F31.62 [facility] [id number] [place] [address] 29206- 0238 06 Jul, 2017 Chronic pain G89.29 [facility] [address] [address]- 6060 02 Jul, 2017 Bipolar I disorder, most recent episode (or current) mixed, moderate F31.62 [facility] [address] [address]- 3049 18 Jun, 2017 Polyneuropathy associated with underlying disease G63 and Diabetes E11.9 [facility] [id number] [place] [address] 24772- 5022 16 Jun, 2017 Bipolar I disorder, most recent episode (or current) mixed, moderate F31.62 [place] [id number] [place] [address] 11958- 0424 09 Jun, 2017 Chronic pain G89.29 [place] [id number] [place] [address] 05503- 8257 27 May, 2017 Bipolar I disorder, most recent episode (or current) mixed, moderate F31.62 [place] [id number] [place] [address] 90647- 9475 21 May, 2017 Bipolar I disorder, most recent episode (or current) mixed, moderate F31.62 [place] [id number] [place] [address] 51087- 3586 20 May, 2017 Diabetic polyneuropathy associated with type 2 diabetes mellitus E11.42 [place] [id number] [place] [address] 54638- 0814 18 May, 2017 Bipolar I disorder, most recent episode (or current) mixed, moderate F31.62 [facility] [address] [address]- 5898 13 May, 2017 Bipolar I disorder, most recent episode (or current) mixed, moderate F31.62 [place] [address] [address]- 5861 May, Chronic pain G89.29 [facility] [id number] [place] [address] 26069- 1229 Apr, Bipolar I disorder, most recent episode (or current) mixed, moderate F31.62 [place] [address] [place] [address] 61446- 0405 Apr, [place] [id number] [place] [address] 96696- 6080 Apr, Chronic pain G89.29 and DM neuro manif type II E11.49 [facility] [id number] [place] [address] 83064- 5166 Apr, [facility] [id number] [place] [address] 90893- 2917 Apr, Bipolar I disorder, most recent episode (or current) mixed, moderate F31.62 [facility] [id number] [place] [address] 09182- 3664 Apr, Chronic pain G89.29 [facility] [id number] [place] [address] 46839- 2356 Apr, Iliotibial band syndrome, left M76.32 [facility] [id number] [place] [address] 76416- 5505 Apr, Bipolar I disorder, most recent episode (or current) mixed, moderate F31.62 [facility] [id number] [place] [address] 33559- 5936 Mar, Bipolar I disorder, most recent episode (or current) mixed, moderate F31.62 [facility] [id number] [place] [address] 36224- 2131 Mar, Bipolar I disorder, most recent episode (or current) mixed, moderate F31.62 [facility] [id number] [place] [address] 24044- 5913 Mar, [facility] [id number] [place] [address] 21124- 7592 Mar, Bipolar I disorder, most recent episode (or current) mixed, moderate F31.62 [facility] [id number] [place] [address] 55322- 2280 Mar, Chronic pain G89.29 [facility] [id number] [place] [address] 23294- 3239 Mar, Bipolar I disorder, most recent episode (or current) mixed, moderate F31.62 [facility] [address] [place] [address] 50566- 0597 Mar, Bipolar I disorder, most recent episode (or current) mixed, moderate F31.62 [facility] [id number] [place] [address] 85684- 6383 Mar, Acute pain of left knee M25.562 ; Left hip pain M25.552 ; Generalized edema R60.1 and Tongue swelling R22.0 [facility] [id number] [place] [address] 85001- 2667 Mar, [place] [id number] [place] [address] 22941- 6658 Feb, Chronic pain G89.29 [place] [id number] [place] [address] 93467- 6892 Feb, Diabetes E11.9 [facility] [id number] [place] [address] 82973- 9840 January, Chronic pain G89.29 [facility] [id number] [place] [address] 22178- 2926 January, [facility] [id number] [place] [address] 96607- 5914 January, Bipolar I disorder, most recent episode (or current) mixed, moderate F31.62 [facility] [id number] [place] [address] 02166- 1414 Dec, Bipolar I disorder, most recent episode (or current) mixed, moderate F31.62 [facility] [id number] [place] [address] 32534- 8405 Dec, Chronic pain G89.29 [facility] [id number] [place] [address] 08562- 9836 Dec, Bipolar I disorder, most recent episode (or current) mixed, moderate F31.62 [facility] [id number] [place] [address] 53512- 9699 Dec, Diabetes E11.9 ; Essential hypertension I10 ; Chronic pain G89.29 and Morbid obesity E66.01 [facility] [id number] [place] [address] 44532- 0752 Dec, [facility] [id number] [place] [address] 89342- 7045 Dec, Bipolar I disorder, most recent episode (or current) mixed, moderate F31.62 [facility] [id number] [place] [address] 31724- 1151 Dec, Bipolar I disorder, most recent episode (or current) mixed, moderate F31.62 [place] [id number] [place] [address] 59967- 3602 Nov, Chronic pain G89.29 [facility] [id number] [place] [address] 63473- 0457 Nov, Bipolar I disorder, most recent episode (or current) mixed, moderate F31.62 [facility] [id number] [place] [address] 59340- 4150 Nov, [facility] [id number] [place] [address] 36234- 8792 Nov, Bipolar I disorder, most recent episode (or current) mixed, moderate F31.62 [facility] [id number] [place] [address] 04610- 9069 Nov, Bipolar I disorder, most recent episode (or current) mixed, moderate F31.62 [place] [id number] [place] [address] 60988- 9097 Nov, [facility] [id number] [place] [address] 09807- 4966 Nov, [facility] [id number] [place] [address] 79147- 7591 Nov, [facility] [address] [address]- 2566 Oct, Chronic pain G89.29 [facility] [id number] [place] [address] 96709- 4426 Oct, Bipolar I disorder, most recent episode (or current) mixed, moderate F31.62 [facility] [id number] [place] [address] 60950- 9610 Oct, [facility] [id number] [place] [address] 68976- 0767 Oct, Chronic pain G89.29 ; Diabetes E11.9 ; Anxiety F41.9 and 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 [facility] [id number] [place] [address] 95922- 4966 Oct, [facility] [id number] [place] [address] 76838- 5392 Oct, Diabetes E11.9 [facility] [id number] [place] [address] 67501- 8358 Oct, Bipolar I disorder, most recent episode (or current) mixed, moderate F31.62 [facility] [id number] [place] [address] 65738- 5466 Sep, Chronic pain G89.29 [facility] [id number] [place] [address] 88712- 2410 Sep, Chronic pain G89.29 [facility] [id number] [place] [address] 61247- 0032 Aug, Chronic pain G89.29 [facility] [id number] [place] [address] 52258- 6954 Jul, [facility] [id number] [place] [address] 34457- 0055 Jul, Diabetes E11.9 [facility] [id number] [place] [address] 85019- 2209 Jul, Chronic pain G89.29 [facility] [id number] [place] [address] 75725- 1885 Jul, Bipolar I disorder, most recent episode (or current) mixed, moderate F31.62 [facility] [id number] [place] [address] 07205- 8745 Jun, Bipolar I disorder, most recent episode (or current) mixed, moderate F31.62 [place] [id number] [place] [address] 37542- 0813 Jun, [place] [id number] [place] [address] 42000- 7544 Jun, Bipolar I disorder, most recent episode (or current) mixed, moderate F31.62 [place] [id number] [place] [address] 35858- 5184 30 May, 2016 Insomnia, unspecified type G47.00 [place] [id number] [place] [address] 98132- 6370 May, Bipolar I disorder, most recent episode (or current) mixed, moderate F31.62 [place] [id number] [place] [address] 74771- 9433 14 May, 2016 [place] [id number] [place] [address] 83679- 7591 08 May, 2016 Bipolar I disorder, most recent episode (or current) mixed, moderate F31.62 [place] [id number] [place] [address] 85648- 2516 06 May, 2016 Diabetes E11.9 and Essential hypertension I10 [place] [id number] [place] [address] 85886- 6065 Apr, Chronic pain G89.29 [facility] [id number] [place] [address] 00996- 2335 Apr, Bipolar I disorder, most recent episode (or current) mixed, moderate F31.62 [facility] [id number] [place] [address] 38703- 6566 Apr, [facility] [id number] [place] [address] 99263- 9983 Apr, [facility] [id number] [place] [address] 97014- 9065 Mar, Chronic pain G89.29 ; Headache, unspecified headache type R51 ; Neuropathy G62.9 ; Pain of right hip joint M25.551 and Essential hypertension I10 [place] [id number] [place] [address] 00592- 8310 Mar, Chronic pain G89.29 [place] [id number] [place] [address] 85600- 1083 Mar, Bipolar I disorder, most recent episode (or current) mixed, moderate F31.62 [place] [id number] [place] [address] 48943- 5877 Feb, Bipolar I disorder, most recent episode (or current) mixed, moderate F31.62 and Insomnia, unspecified type G47.[id number] [place] [address] 53418- 8595 Feb, Chronic pain G89.29 [id number] [place] [address] 01975- 4430 Feb, Bipolar I disorder, most recent episode (or current) mixed, moderate F31.62 [id number] [place] [address] [id number]- 0582 January, Bipolar I disorder, most recent episode (or current) mixed, moderate F31.[id number] [place] [address] 84992- 5671 January, Chronic pain G89.29 [id number] [place] [address] 41077- 4003 January, Chronic pain G89.29 and Essential hypertension I10 [facility] [id number] [place] [address] 33530- 1531 January, Bipolar I disorder, most recent episode (or current) mixed, moderate F31.62 [facility] [id number] [place] [address] [id number]- 3024 Dec, [facility] [address] [phone]- [phone] Dec, [facility] [id number] [place] [address] 35511- 4229 Dec, [facility] [id number] [place] [address] 61050- 3223 Dec, [facility] [id number] [place] [address] 26836- 3372 Nov, Reactive airway disease J45.909 [facility] [id number] [place] [address] [phone]- 9506 Nov, [facility] [address] [id number] [place] [address] 02323- 9607 Nov, [facility] [id number] [place] [address] 47374- 0790 Nov, [facility] [id number] [place] [address] 80931- 0915 Nov, [facility] [id number] [place] [address] 76997- 2169 Nov, Onychomycosis B35.1 ; Hammertoe M20.40 ; [place]sworth or callus L84 and DM neuro manif type II E11.49 [facility] [id number] [place] [address] 64812- 1112 Nov, Chronic pain G89.29 ; Leukocytosis D72.829 and Diabetes E11.9 [facility] [id number] [place] [address] 36784- 4562 Nov, [facility] [id number] [place] [address] 18188- 5256 Oct, Bronchitis J40 [facility] [id number] [place] [address] 27076- 4254 Oct, [facility] [address] 79664- 0346 Oct, [facility] [address] 09126- 2057 Oct, Mastoiditis, unspecified laterality H70.90 and Type 2 diabetes mellitus with complication E11.8 [place] [address] 26957- 8366 Sep, [place] [address] 66680- 6559 Sep, Dysuria R30.0 ; Cough R05 ; Benign prostatic hyperplasia with lower urinary tract symptoms, unspecified morphology N40.1 ; Hypokalemia E87.6 and Eustachian tube dysfunction, unspecified laterality H69.80 [place] [id number] [place] [address] 41897- 7570 Sep, Moderate mixed bipolar I disorder F31.62 [place] [id number] [place] [address] 69166- 9797 Sep, Hypokalemia E87.6 [place] [id number] [place] [address] 40249- 6775 Sep, [place] [id number] [place] [address] 59506- 2469 Sep, Upper respiratory tract infection, unspecified type J06.9 [facility] [id number] [place] [address] 70744- 8793 Aug, [place] [address] 21959- 9193 Aug, Dysuria R30.0 [facility] [address] [address]- 3408 Aug, [facility] [id number] [address]- 2407 Jul, [facility] [address] [address]- 4967 Jul, [facility] [id number] [place] [address] 39387- 6831 Jul, [facility] [id number] [place] [address] 29607- 8761 Jul, [facility] [id number] [place] [address] 98313- 6173 Jun, [facility] [id number] [address]- 7484 Jun, [facility] [id number] [place] [address] 68651- 9994 Jun, [facility] [id number] [address]- 4723 May, [facility] [id number] [address]- 3273 May, Bipolar I disorder, most recent episode (or current) mixed, moderate 296.62 [facility] [id number] [address]- 4707 16 May, 2015 [facility] [address] [address]- 3046 May, Bipolar I disorder, most recent episode (or current) mixed, moderate 296.62 and Major depressive disorder, recurrent episode, severe, specified as with psychotic behavior 296.34 [facility] [address] [address]- 1149 02 May, 2015 Bipolar I disorder, most recent episode (or current) mixed, moderate 296.62 [facility] [address] [address]- 3332 May, [facility] [id number] [place] [address] 95666- 8694 Apr, [facility] [id number] [place] [address] 55349- 0140 Apr, [facility] [id number] [place] [address] 72002- 9418 Apr, Unspecified disorder of kidney and ureter 593.9 and Diabetes mellitus type 2, uncontrolled 250.02 [facility] [id number] [place] [address] 96226- 8700 Apr, [facility] [id number] [place] [address] 21638- 2167 Apr, [facility] [id number] [place] [address] 27572- 9626 Apr, [facility] [id number] [place] [address] 39314- 1041 Apr, [facility] [id number] [place] [address] 72417- 4134 Apr, Diabetes mellitus type II, uncontrolled 250.02 [facility] [address] [address]- 2348 Apr, [facility] [id number] [place] [address] 01730- 5680 Mar, [facility] [address] [address]- 1264 Mar, [facility] [id number] [place] [address] 86365- 0001 Mar, [facility] [address] [address]- 2747 Mar, Major depressive disorder, recurrent episode, severe, specified as with psychotic behavior 296.34 and Bipolar I disorder, most recent episode (or current) mixed, moderate 296.62 [facility] [id number] [place] [address] 36921- 8889 Mar, Diabetes 250.00 ; Anuria 788.5 ; Nausea and vomiting 787.01 and Diarrhea 787.91 [facility] [id number] [place] [address] 05451- 5626 Mar, Diabetes 250.00 [facility] [id number] [place] [address] 40204- 4123 Mar, [facility] [id number] [place] [address] 53831- 1927 Mar, Diabetes 250.00 [facility] [id number] [place] [address] 27045- 9415 Mar, [facility] [id number] [place] [address] 33754- 7883 Mar, [facility] [id number] [place] [address] 31380- 0706 Mar, [facility] [id number] [place] [address] 76882- 5790 Mar, [facility] [id number] [place] [address] 41637- 7657 Mar, Bipolar I disorder, most recent episode (or current) mixed, moderate 296.62 and Major depressive disorder, recurrent episode, severe, specified as with psychotic behavior 296.34 [facility] [id number] [place] [address] 46674- 1302 Mar, Magnesium deficiency 275.2 ; Hypokalemia 276.8 ; Nausea & vomiting 787.01 and Diabetes mellitus type 2, uncontrolled 250.02 [facility] [id number] [place] [address] 55655- 9268 Feb, [facility] [id number] [place] [address] 04433- 4940 Feb, Bipolar I disorder, most recent episode (or current) mixed, moderate 296.62 [facility] [id number] [place] [address] 22095- 5874 Feb, Nausea and vomiting 787.01 ; Left elbow pain 719.42 ; Anuria 788.5 and Diabetes 250.00 [facility] [id number] [place] [address] 71412- 1629 Feb, [facility] [address] 97658- 7559 Feb, Hypopotassemia 276.8 and Hypokalemia 276.8 [place] [id number] [place] [address] 495373- 8955 Feb, Hypopotassemia 276.8 and Hypokalemia 276.8 [place] [id number] [place] [address] 22812- 8770 Feb, Seborrheic keratoses 702.19 [place] [id number] [place] [address] 60347- 7529 Feb, Hypopotassemia 276.8 and Low magnesium levels 275.2 [place] [id number] [place] [address] 51463- 8437 January, [place] [id number] [place] [address] 65272- 1270 January, [place] [id number] [place] [address] 73184- 4869 January, [facility] [id number] [place] [address] 87095- 3191 January, Scalp lesion 709.9 [place] [id number] [place] [address] 78692- 3676 January, [facility] [id number] [place] [address] [id number]- 9222 Dec, Tear of medial cartilage or meniscus of knee, current 836.0 and 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 [facility] [address] [id number] [place] [address] 2549 Dec, [facility] [place] [facility] [address] [id number] [place] [address] 2546 29 Dec, 2014 [facility] [place] [facility] [address] [facility] [id number] [place] [address] 2546 28 Dec, 2014 Squamous cell carcinoma, 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 [facility] [place] [facility] [address] [id number] [place] [address]- 3086 14 Dec, 2014 [facility] [place] [facility] [address] [id number] [place] [address]- 2334 Dec, [facility] [place] [facility] [address] [facility] [id number] [place] [address]- 9354 Nov, [facility] [place] [facility] [address] [facility] [id number] [place] [address]- 6228 Nov, [facility] [place] [facility] [address] [id number] [place] [address]- 6931 Nov, [facility] [place] [facility] [address] [id number] [place] [address]- 3730 Nov, [facility] [place] [facility] [address] [facility] [id number] [place] [address]- 1781 Nov, [facility] [place] [facility] [address] [facility] [id number] [place] [address]- 2497 Nov, [facility] [place] [facility] [address] [id number] [place] [address]- 4366 Nov, [facility] [place] [facility] [address] [id number] [place] [address] 2546 Nov, [facility] [place] [facility] [address] [facility] [id number] [place] [address]- 7864 Nov, [facility] [place] [facility] [address] [facility] [id number] [place]- 5584 Nov, [facility] [place] [facility] [address] [facility] [id number] [place] [address]- 3730 Nov, [facility] [place] [facility] [address] [id number] [place] [address]- 7027 Nov, [facility] [place] [facility] [address] [id number] [place] [address]- 8469 Oct, 2014 [facility] [place] [facility] [address] [id number] [place] [address]- 0329 Oct, 2014 [facility] [place] [facility] [address] [id number] [place] [address]- 2618 Oct, 2014 [facility] [place] [facility] [address] [id number] [place] [address]- 7379 Oct, 2014 [facility] [place] [facility] [address] [facility] [id number] [place] [address]- 8143 Oct, 2014 [facility] [place] [facility] [address] [id number] [place] [address]- 9134 Oct, 2014 [facility] [place] [facility] [address] [id number] [place] [address]- 5446 Oct, 2014 [facility] [place] [facility] [address] [facility] [id number] [place] [address]- 7998 Oct, [facility] [place] [facility] [address] [facility] [id number] [place] [address]- 6569 Oct, [facility] [place] [facility] [address] [facility] [id number] [place] [address]- 3418 Sep, [facility] [place] [facility] [address] [id number] [place] [address]- 3794 Sep, [facility] [place] [facility] [address] [id number] [place] [address]- 5329 Sep, [facility] [place] [facility] [address] [id number] [place] [address]- 7380 Sep, [facility] [place] [facility] [address] [facility] [id number] [place] [address]- 9361 Sep, [facility] [place] [facility] [address] [id number] [place] [address]- 9032 Sep, [facility] [place] [facility] [address] [id number] [place] [address]- 3316 Sep, [facility] [place] [facility] [address] [id number] [place] [address]- 6923 Sep, [facility] [place] [facility] [address] [id number] [place] [address]- 0304 Sep, [facility] [place] [facility] [address] [id number] [place] [address]- 9955 Sep, [facility] [place] [facility] [address] [id number] [place] [address]- 3762 Sep, [facility] [place] [facility] [address] [id number] [place] [address]- 7693 Sep, [facility] [place] [facility] [address] [id number] [place] [address]- 9131 Sep, [facility] [place] [facility] [address] [id number] [place] [address]- 9001 Sep, [facility] [place] [facility] [address] [id number] [place] [address]- 2133 Sep, [facility] [place] [facility] [address] [id number] [address]- 7748 Sep, [facility] [place] [facility] [address] [id number] [address]- 9220 Aug, [facility] [place] [facility] [address] [id number] [place] [address]- 3526 Aug, [facility] [place] [facility] [address] [id number] [place] [address]- 3149 Aug, [facility] [place] [facility] [address] [id number] [place] [address]- 3084 Aug, [facility] [place] [facility] [address] [id number] [place] [address]- 3990 Aug, [facility] [address] [id number] [place] [address]- 0843 Aug, [facility] [address] [id number] [place] [address]- 3748 Aug, [facility] [address] [id number] [place] 7310 Aug, [facility] [address] [id number] [place] [address]- 7454 Aug, [facility] [address] [id number] [place] [address]- 4300 Aug, [facility] [address] [facility] [id number] [place] [address]- 7795 Aug, [facility] [address] [place] [id number] Aug, [facility] [address] [id number] [place] [address]- 1231 Aug, [facility] [address] [id number] [place] [address]- 2318 Aug, [facility] [address] [facility] [id number] [place] [address]- 3862 Aug, [facility] [address] [id number] [place] [address]- 9361 Aug, [facility] [address] [id number] [place] [address]- 7659 Aug, [facility] [address] [id number] [place] [address]- 6921 Aug, [facility] [address] [id number] [place] [address]- 5329 Aug, [facility] [address] [facility] [id number] [place]- 8883 Aug, [facility] [place] [facility] [address] [id number] [place] [address]- 9462 08 Aug, 2014 [facility] [place] [facility] [address] [id number] [place] [address]- 2383 Aug, [facility] [place] [facility] [address] [id number] [place] [address]- 1323 Aug, [facility] [place] [facility] [address] [id number] [place] [address]- 6322 Aug, [facility] [place] [facility] [address] [id number] [place] [address]- 1227 Aug, [facility] [place] [facility] [address] [id number] [place] [address]- 1256 Aug, [facility] [place] [facility] [address] [id number] [place] [address]- 1951 Aug, [facility] [place] [facility] [address] [id number] [place] [address]- 0507 Aug, [facility] [place] [facility] [address] [id number] [place] 2798 Aug, [facility] [place] [facility] [address] [id number] [place] [address]- 7615 Aug, [facility] [place] [facility] [address] [id number] [place] [address]- 1611 Jul, [facility] [place] [facility] [address] [id number] [place] [address]- 0726 Jul, [facility] [place] [facility] [address] [id number] [place] [address]- 0954 Jul, [facility] [place] [facility] [address] [id number] [place] [address]- 6585 Jul, [facility] [place] [facility] [address] [id number] [place] [address]- 2041 Jul, [facility] [place] [facility] [address] [id number] [place] [address]- 1752 Jul, [facility] [place] [facility] [address] [id number] [place] [address]- 5826 Jul, [facility] [place] [facility] [address] [id number] [place] [address]- 7969 Jul, [facility] [place] [facility] [address] [id number] [place] [address]- 7478 Jul, [facility] [place] [facility] [address] [id number] [place] [address]- 6810 Jul, [facility] [place] [facility] [address] [id number] [place] [address]- 5976 Jun, [facility] [place] [facility] [address] [id number] [place] [address]- 2240 Jun, [facility] [place] [facility] [address] [id number] [place] [address]- 2943 Jun, [facility] [place] [facility] [address] [id number] [address]- 5250 Jun, [facility] [place] [facility] [address] [id number] [place] [address]- 7334 Jun, [facility] [place] [facility] [address] [id number] [place] [address]- 0582 Jun, [facility] [place] [facility] [address] [id number] [place] [address]- 6114 Jun, [facility] [place] [facility] [address] [id number] [place] [address]- 4240 Jun, [facility] [place] [facility] [address] [id number] [place] [address]- 3400 Jun, [facility] [place] [facility] [address] [id number] [address]- 1632 Jun, [facility] [place] [facility] [address] [id number] [place] [address]- 0563 May, [facility] [place] [facility] [address] [id number] [place] [address]- 4578 29 Sep, 2013 [facility] [place] [facility] [address] [id number] [place] [address] 2546 26 Sep, 2013 [facility] [place] [facility] [address] [id number] [place] [address] 2546 26 Sep, 2013 [facility] [place] [facility] [address] [id number] [place] [address] 2546 17 Sep, 2013 [facility] [place] [facility] [address] [id number] [place] [address] 2546 17 Sep, 2013 [facility] [place] [facility] [address] [id number] [place] [address] 2546 15 Sep, 2013 [facility] [place] [facility] [address] [id number] [place] [address] 2546 15 May, 2013 [facility] [place] [facility] [address] [id number] [place] [address] 2548 15 May, 2013 [facility] [place] [facility] [address] [id number] [place] [address] 2540 15 Sep, 2013 [facility] [place] [facility] [address] [id number] [place] [address] 2546 10 May, 2013 [facility] [place] [facility] [address] [id number] [place] [address]- 2542 10 May, 2013 [facility] [place] [facility] [address] [id number] [place] [address] 2546 09 Sep, 2013 [facility] [place] [facility] [address] [id number] [place] [address] 254 09 Sep, 2013 [facility] [place] [facility] [address] [id number] [place] [address] 2546 04 May, 2013 [facility] [place] [facility] [address] [id number] [place] [address] 04 May, 2013 [facility] [place] [facility] [address] [id number] [place] [address] 30 Apr, 2014 [facility] [place] [facility] [address] [id number] [place] [address] Apr, [facility] [place] [facility] [address] [id number] [place] [address] Apr, [facility] [place] [facility] [address] [id number] [place] [address] Apr, [facility] [place] [facility] [address] [id number] [place] [address] Apr, [facility] [place] [facility] [address] [id number] [place] [address] Apr, [facility] [place] [facility] [address] [id number] [place] [address] Apr, [facility] [place] [facility] [address] [id number] [place] [address] Apr, [facility] [place] [facility] [address] [id number] [place] [address] Apr, [facility] [place] [facility] [address] [id number] [place] [address] Apr, [facility] [place] [facility] [address] [id number] [place] [address] Apr, [facility] [place] [facility] [address] [id number] [place] [address] Apr, [facility] [place] [facility] [address] [id number] [place] [address]73 Apr, [facility] [place] [facility] [address] [id number] [place] [address] 164[address] Apr, [facility] [place] [facility] [address] [id number] [place] [address] Apr, [facility] [place] [facility] [address] [id number] [place] [address] Mar, [facility] [place] [facility] [address] [id number] [place] [address]61 Mar, 2013 [facility] [place] [facility] [address] [id number] [place] [address]- [address] Mar, 2013 [facility] [place] [facility] [address] [id number] [place] [address]- [address] Mar, 2013 [facility] [place] [facility] [address] [id number] [place] [address]- [address] Mar, 2013 [facility] [place] [facility] [address] [id number] [place] [address]- [address]9 Mar, 2013 [facility] [place] [facility] [address] [id number] [place] [address] Mar, [facility] [place] [facility] [address] [id number] [place] [address] Mar, 2013 [facility] [place] [facility] [address] [id number] [place] [address] Mar, [facility] [place] [facility] [address] [id number] [place] [address]- [address]69 Mar, 2013 [facility] [place] [facility] [address] [id number] [place] [address]- [address] Mar, 2013 [facility] [place] [facility] [address] [id number] [place] [address] Mar, 2013 [facility] [place] [facility] [address] [id number] [place] [address]- [address] Mar, 2013 [facility] [place] [facility] [address] [id number] [place] [address]- [address]60 Mar, 2013 [facility] [place] [facility] [address] [id number] [place] [address]843 Mar, 2013 [facility] [place] [facility] [address] [id number] [place] [address] Mar, 2013 [facility] [place] [facility] [address] [id number] [place] [address] Mar, 2013 [facility] [place] [facility] [address] [id number] [place] [address] Mar, [facility] [place] [facility] [address] [id number] [place] [address]- [address] Feb, [facility] [place] [facility] [address] [id number] [place] [address] Feb, [facility] [place] [facility] [address] [id number] [place] [address] 15[address] Feb, [facility] [place] [facility] [address] [id number] [place] [address] 37[address] Feb, [facility] [place] [facility] [address] [id number] [place] [address] Feb, [facility] [place] [facility] [address] [id number] [place] [address]- 40[address] Feb, [facility] [place] [facility] [address] [id number] [place] [address] Feb, [facility] [place] [facility] [address] [id number] [place] [address] 1810 Feb, [facility] [place] [facility] [address] [id number] [place] [address]- 0931 Feb, [facility] [place] [facility] [address] [id number] [place] [address]- 67[address] Feb, [facility] [place] [facility] [address] [id number] [place] [address]- 1728 Feb, [facility] [place] [facility] [address] [id number] [place] [address]- [address] Feb, [facility] [place] [facility] [address] [id number] [place] [address]- 1314 Feb, [facility] [place] [facility] [address] [id number] [place] [address]- [address] Feb, [facility] [place] [facility] [address] [id number] [place] [address]- [address] January, [facility] [address] [id number] [place] [address] 140[address] January, [facility] [place] [facility] [address] [id number] [place] [address]- [address] January, [facility] [place] [facility] [address] [id number] [place] [address]- [address] January, [facility] [place] [facility] [address] [id number] [place] [address]- [address] January, [facility] [place] [facility] [address] [id number] [place] [address] January, [facility] [place] [facility] [address] [id number] [place] [address] January, [facility] [place] [facility] [address] [id number] [place] [address] January, [facility] [place] [facility] [address] [id number] [place] [address] 9822 January, [facility] [place] [facility] [address] [id number] [place] [address] 8[address] January, [facility] [place] [facility] [address] [id number] [place] [address] 6067 January, [facility] [place] [facility] [address] [id number] [place] [address] 4[address] January, [facility] [place] [facility] [address] [id number] [place] [address] 8739 January, [facility] [place] [facility] [address] [id number] [place] [address] 4310 January, [facility] [place] [facility] [address] [id number] [place] [address] 1920 Dec, [facility] [place] [facility] [address] [id number] [place] [address]- 4965 Dec, [facility] [place] [facility] [address] [id number] [place] [address]- 8806 Dec, [facility] [place] [facility] [address] [id number] [place] [address]- 8322 Dec, [facility] [place] [facility] [address] [id number] [place] [address]- 9124 Dec, [facility] [place] [facility] [address] [id number] [place] [address]- 0819 Dec, [facility] [place] [facility] [address] [id number] [place] [address]- 6952 Dec, [facility] [place] [facility] [address] [id number] [place] [address]- 9876 Dec, [facility] [place] [facility] [address] [id number] [place] [address]- 9088 Dec, [facility] [place] [facility] [address] [id number] [place] [address]- 1800 Dec, [facility] [place] [facility] [address] [id number] [place] [address]- 0962 Nov, [facility] [place] [facility] [address] [id number] [place] [address]- 9503 Nov, [facility] [place] [facility] [address] [id number] [place] [address]- 9058 Nov, [facility] [place] [facility] [address] [id number] [place] [address]- 3338 Nov, [facility] [place] [facility] [address] [id number] [place] [address]- 3796 Nov, [facility] [place] [facility] [address] [id number] [place] [address]- 5902 Nov, [facility] [place] [facility] [address] [id number] [place] [address]- 5233 Nov, [facility] [place] [facility] [address] [facility] [id number] [place] [address]- 6479 Nov, [facility] [place] [facility] [address] [id number] [place] [address]- 6679 Nov, [facility] [place] [facility] [address] [id number] [place] [address]- 6271 Nov, [facility] [place] [facility] [address] [id number] [place] [address]- 3416 Oct, [facility] [place] [facility] [address] [id number] [place] [address]- 3033 Oct, [facility] [place] [facility] [address] [id number] [place] [address]- 0687 Oct, [facility] [place] [facility] [address] [id number] [place] [address]- 1526 Oct, [facility] [place] [facility] [address] [facility] [id number] [place] [address]- 5144 Oct, [facility] [place] [facility] [address] [id number] [place] [address]- 3272 Oct, [facility] [place] [facility] [address] [id number] [place] [address]- 7452 Oct, [facility] [place] [facility] [address] [facility] [id number] [place] [address]- 1365 Oct, [facility] [place] [facility] [address] [facility] [id number] [place] [address]- 2280 Oct, [facility] [place] [facility] [address] [id number] [place] [address]- 7277 Oct, [facility] [place] [facility] [address] [id number] [place] [address]- 2902 Oct, [facility] [place] [facility] [address] [id number] [place] [address]- 9925 Oct, [facility] [place] [facility] [address] [facility] [id number] [place] [address]- 0016 Oct, [facility] [place] [facility] [address] [id number] [place] [address]- 0876 Oct, [facility] [address] [id number] [place] [address]- 9599 Sep, [facility] [place] [facility] [address] [id number] [place] [address]- 9055 Sep, [facility] [address] [id number] [place] [address]- 8396 15 Sep, 2013 [facility] [place] [facility] [address] [id number] [place] [address]- 9507 15 Sep, 2013 [facility] [place] [facility] [address] [id number] [place] [address]- 8877 Sep, [facility] [place] [facility] [address] [id number] [place] [address]- 5698 Sep, [facility] [address] [id number] [place] [address]- 1044 Sep, [facility] [address] [id number] [place] [address]- 1969 Sep, [facility] [place] [facility] [address] [id number] [place] [address]- 3336 Sep, [facility] [address] [id number] [place] [address]- 5579 Sep, [facility] [place] [facility] [address] [id number] [place] [address]- 2276 Aug, [facility] [place] [facility] [address] [id number] [place] [address]- 5800 Aug, [facility] [place] [facility] [address] [id number] [place] [address]- 3010 Jul, [facility] [place] [facility] [address] [id number] [place] [address]- 5646 Jul, [facility] [place] [facility] [address] [id number] [place] [address]- 0746 Jul, [facility] [place] [facility] [address] [id number] [place] [address]- 8929 Jul, [facility] [place] [facility] [address] [id number] [place] [address]- 6970 Jul, [facility] [place] [facility] [address] [id number] [place] [address]- 7581 Jul, [facility] [place] [facility] [address] [id number] [place] [address]- 1036 Jul, [facility] [place] [facility] [address] [id number] [place] [address]- 1538 Jul, [facility] [place] [facility] [address] [id number] [place] [address]- 9104 Jul, [facility] [place] [facility] [address] [id number] [place] [address]- 8646 Jul, [facility] [place] [facility] [address] [id number] [place] [address]- 1668 Jul, [facility] [place] [facility] [address] [id number] [place] [address]- 9535 Jul, [facility] [place] [facility] [address] [id number] [place] [address]- 6780 Jul, [facility] [place] [facility] [address] [id number] [place] [address]- 6051 Jul, [facility] [place] [facility] [address] [id number] [address]- 5772 Jul, [facility] [place] [facility] [address] [id number] [place] [address]- 0199 Jul, [facility] [place] [facility] [address] [id number] [place] [address]- 2166 Jul, [facility] [place] [facility] [address] [id number] [place] [address]- 3960 Jul, [facility] [place] [facility] [address] [id number] [address]- 8876 Jul, [facility] [place] [facility] [address] [id number] [place] [address] Jun, 2012 [facility] [place] [facility] [address] [id number] [place] [address]- 1879 Jun, 2012 [facility] [place] [facility] [address] [id number] [place] [address]- 3483 Jun, 2012 [facility] [place] [facility] [address] [id number] [place] [address]- 8216 Jun, 2012 [facility] [place] [facility] [address] [id number] [place] [address] Jun, 2012 [facility] [place] [facility] [address] [id number] [place] [address]- 7460 Jun, 2012 [facility] [place] [facility] [address] [id number] [place] [address]- 8639 Jun, 2012 [facility] [place] [facility] [address] [id number] [place] [address]- 7538 10 Jun, 2013 [facility] [place] [facility] [address] [id number] [place] [address]- 6858 Jun, [facility] [place] [facility] [address] [id number] [place] [address]- 0349 Jun, [facility] [place] [facility] [address] [id number] [place] [address]- 8389 Jun, [facility] [place] [facility] [address] [id number] [place] [address]- 2353 26 May, 2012 [facility] [place] [facility] [address] [id number] [place] [address]- 0333 25 Sep, 2012 [facility] [place] [facility] [address] [id number] [place] [address]70 19 Sep, 2012 [facility] [place] [facility] [address] [id number] [place] [address] 17 Sep, 2012 [facility] [place] [facility] [address] [id number] [place] [address]- 4568 11 May, 2012 [facility] [address] [id number] [place] [address]- 7590 10 May, 2013 [facility] [place] [facility] [address] [id number] [place] [address]- 9856 May, [facility] [address] [id number] [place] [address]- 9797 05 May, 2013 [facility] [place] [facility] [address] [id number] [place] [address]- 1123 Apr, [facility] [address] [id number] [place] [address]- 5579 Apr, [facility] [place] [facility] [address] [id number] [place] [address]- 2837 Apr, [facility] [place] [facility] [address] [id number] [place] [address]- 1962 Apr, [facility] [address] [id number] [place] [address]- 0983 Apr, [facility] [place] [facility] [address] [id number] [place] [address]- 1313 Mar, [facility] [address] [id number] [place] [address]- 9457 Mar, [facility] [place] [facility] [address] [id number] [place] [address]- 2077 Mar, [facility] [place] [facility] [address] [id number] [place] [address]- 5977 Mar, [facility] [place] [facility] [address] [id number] [place] [address]- 8970 Mar, [facility] [place] [facility] [address] [id number] [place] [address]- 4756 Mar, [facility] [place] [facility] [address] [id number] [place] [address]- 2810 Mar, [facility] [address] [id number] [place] [address]- 4698 Mar, [facility] [place] [facility] [address] [id number] [place] [address]- 3022 Feb, [facility] [address] [id number] [place] [address]- 0556 Feb, [facility] [place] [facility] [address] [id number] [place] [address]- 0369 January, [facility] [address] [id number] [place] [address]- 7177 January, [facility] [place] [facility] [address] [id number] [place] [address]- 6254 Dec, [facility] [address] [id number] [place] [address]- 8234 Dec, [facility] [address] [id number] [place] [address]- 8491 Nov, [facility] [place] [facility] [address] [id number] [place] [address]- 7981 Nov, [facility] [place] [facility] [address] [id number] [place] [address]- 5745 Nov, [facility] [place] [facility] [address] [id number] [place] [address]- 7073 Nov, [facility] [place] [facility] [address] [id number] [place] [address]- 5053 Oct, [facility] [place] [facility] [address] [id number] [place] [address]- 5686 Oct, [facility] [place] [facility] [address] [id number] [place] [address]- 2386 Oct, [facility] [place] [facility] [address] [id number] [place] [address]- 4380 Oct, [facility] [place] [facility] [address] [id number] [place] [address]- 4134 16 Oct, 2012 [facility] [address] [id number] [place] [address]- 8576 14 Oct, 2012 [facility] [address] [id number] [place] [address] 2546 08 Oct, 2012 [facility] [address] [id number] [place] [address]- 2836 07 Oct, 2012 [facility] [address] [id number] [place] [address] 2540 03 Oct, 2012 [facility] [address] [id number] [place] [address]- 0496 30 Sep, 2012 [facility] [address] [id number] [place] [address]- 6791 Sep, [facility] [address] [id number] [place] [address]- 7751 Sep, [facility] [address] [id number] [place] [address]- 1401 Sep, [facility] [address] [id number] [place] [address]- 1871 Sep, [facility] [address] [id number] [place] [address]- 7704 Sep, [facility] [address] [id number] [place] [address]- 0841 Sep, [facility] [address] [id number] [place] [address]- 8841 Sep, [facility] [address] [id number] [place] [address]- 1713 Aug, [facility] [address] [id number] [place] [address]- 9846 Aug, [facility] [address] [id number] [place] [address]- 7333 Aug, [facility] [place] [facility] [address] [id number] [place] [address]- 5491 Aug, [facility] [place] [facility] [address] [id number] [place] [address]- 0761 Aug, [facility] [place] [facility] [address] [id number] [place] [address]- 8041 Aug, [facility] [place] [facility] [address] [id number] [place] [address]- 1041 Aug, [facility] [place] [facility] [address] [id number] [place] [address]- 0693 Aug, [facility] [place] [facility] [address] [id number] [place] [address]- 3152 Jul, [facility] [place] [facility] [address] [id number] [place] [address]- 1291 Jul, [facility] [place] [facility] [address] [id number] [place] [address]- 4858 Jul, [facility] [place] [facility] [address] [id number] [place] [address]- 9443 Jul, [facility] [place] [facility] [address] [id number] [place] [address]- 6457 Jul, [facility] [place] [facility] [address] [id number] [place] [address]- 8602 Jul, [facility] [place] [facility] [address] [id number] [place] [address]- 2793 Jun, [facility] [place] [facility] [address] [id number] [place] [address]- 5109 Jun, [facility] [place] [facility] [address] [id number] [place] [address]- 3944 Jun, [facility] [place] [facility] [address] [id number] [place] [address]- 7905 Jun, [facility] [place] [facility] [address] [id number] [place] [address]- 0644 Jun, [facility] [place] [facility] [address] [id number] [place] [address]- 1853 19 Jun, 2012 [facility] [place] [facility] [address] [id number] [place] [address]- 7496 19 Jun, 2012 [facility] [place] [facility] [address] [id number] [place] [address]- 1296 10 Jun, 2012 [facility] [place] [facility] [address] [id number] [place] [address]- 2909 10 Jun, 2012 [facility] [place] [facility] [address] [id number] [place] [address]- 0882 26 May, 2012 [facility] [place] [facility] [address] [id number] [place] [address]- 3075 24 May, 2012 [facility] [place] [facility] [address] [id number] [place] [address]- 6002 18 May, 2012 [facility] [place] [facility] [address] [id number] [place] [address]- 5569 30 Apr, 2012 [facility] [place] [facility] [address] [id number] [place] [address]- 4794 29 Apr, 2012 [facility] [place] [facility] [address] [id number] [place] [address]- 0455 Apr, [facility] [place] [facility] [address] [id number] [place] [address]- 7644 14 Apr, 2012 [facility] [place] [facility] [address] [id number] [place] [address]- 9769 Apr, [facility] [place] [facility] [address] [id number] [place] [address]- 5933 Apr, [facility] [place] [facility] [address] [id number] [place] [address]- 8805 Mar, [facility] [place] [facility] [address] [id number] [place] [address]- 2835 Mar, [facility] [place] [facility] [address] [id number] [place] [address]- 4367 Mar, [facility] [place] [facility] [address] [id number] [place] [address]- 3950 Mar, [facility] [place] [facility] [address] [id number] [place] [address]- 5908 Feb, [facility] [place] [facility] [address] [id number] [place] [address]- 1050 Feb, [facility] [place] [facility] [address] [id number] [place] [address]- 3193 Feb, [facility] [place] [facility] [address] [id number] [place] [address]- 6624 Feb, [facility] [place] [facility] [address] [id number] [place] [address]- 9696 Feb, [facility] [place] [facility] [address] [id number] [place] [address]- 5573 January, [facility] [place] [facility] [address] [id number] [place] [address]- 8354 January, [facility] [place] [facility] [address] [id number] [place] [address]- 7436 January, [facility] [place] [facility] [address] [id number] [place] [address]- 2313 January, [facility] [place] [facility] [address] [id number] [place] [address]- 8473 January, [facility] [place] [facility] [address] [id number] [place] [address]- 0179 January, [facility] [place] [facility] [address] [id number] [place] [address]- 2400 Dec, [facility] [place] [facility] [address] [id number] [place] [address]- 6675 Dec, [facility] [place] [facility] [address] [id number] [place] [address]- 3267 17 Dec, 2011 [facility] [place] [facility] [address] [id number] [place] [address]- 3413 09 Dec, 2011 [facility] [place] [facility] [address] [id number] [place] [address] 06 Dec, 2011 [facility] [place] [facility] [address] [facility] [id number] [place] [address] 27 Nov, 2011 [facility] [place] [facility] [address] [id number] [place] [address] 92[address] 14 Nov, 2011 [facility] [place] [facility] [address] [id number] [place] [address] Nov, [facility] [place] [facility] [address] [facility] [id number] [place] [address]267 07 Nov, 2011 [facility] [place] [facility] [address] [facility] [id number] [place] [address] 0168 29 Oct, 2011 [facility] [place] [facility] [address] [id number] [place] [address] 2381 28 Oct, 2011 [facility] [place] [facility] [address] [id number] [place] [address] 8164 24 Oct, 2011 [facility] [place] [facility] [address] [facility] [id number] [place] [address] 395[address] Oct, [facility] [place] [facility] [address] [facility] [id number] [place] [address]- 0968 08 Oct, 2011 [facility] [place] [facility] [address] [id number] [place] [address] Sep, [facility] [place] [facility] [address] [id number] [place] [address] 3770 30 Sep, 2011 [facility] [place] [facility] [address] [id number] [place] [address]- 4973 Sep, [facility] [place] [facility] [address] [facility] [id number] [place] [address]- 9490 Sep, [facility] [place] [facility] [address] [id number] [place] [address] Sep, [facility] [place] [facility] [address] [id number] [place] [address] 7672 Sep, [facility] [place] [facility] [address] [id number] [place] [address] 8273 Aug, [facility] [place] [facility] [address] [id number] [place] [address]097 Aug, [facility] [place] [facility] [address] [id number] [place] [address]- 2428 Aug, [facility] [place] [facility] [address] [id number] [place] [address]- 0098 Jul, [facility] [place] [facility] [address] [id number] [place] [address] 44[address] Jul, [facility] [place] [facility] [address] [id number] [place] [address] 4719 Jul, [facility] [place] [facility] [address] [id number] [place] [address] 2399 Jul, [facility] [place] [facility] [address] [id number] [place] [address]- 4291 Jun, [facility] [place] [facility] [address] [id number] [place] [address]- [address] Jun, [facility] [place] [facility] [address] [id number] [place] [address]- 6746 Jun, [facility] [place] [facility] [address] [id number] [place] [address] 4349 Jun, [facility] [place] [facility] [address] [id number] [place] [address] 1258 Jun, [facility] [place] [facility] [address] [id number] [place] [address] Jun, [facility] [place] [facility] [address] [id number] [place] [address]- 5737 11 Mar, 2011 [facility] [address] [id number] [place] [address]- 9621 18 Dec, 2010 [facility] [place] [facility] [address] [id number] [place] [address]- 9186 11 Dec, 2010 [facility] [place] [facility] [address] [id number] [place] [address]- 3143 18 Nov, 2010 [facility] [place] [facility] [address] [id number] [place] [address]- 0065 16 Nov, 2010 [facility] [place] [facility] [address] [id number] [place] [address]- 0200 10 Sep, 2010 [facility] [place] [facility] [address] [id number] [place] [address]- 6353 31 Aug, 2010 [facility] [place] [facility] [address] [id number] [place] [address]- 1118 29 Aug, 2010 [facility] [place] [facility] [address] [id number] [place] [address]- 4559 29 Aug, 2010 [facility] [place] [facility] [address] [id number] [place] [address]- 1332 29 Aug, 2010 [facility] [place] [facility] [address] [id number] [place] [address]- 6842 27 Aug, 2010 [facility] [place] [facility] [address] [id number] [place] [address]- 8011 14 Aug, 2010 [facility] [place] [facility] [address] [id number] [place] [address]76 08 Aug, 2010 [facility] [place] [facility] [address] [id number] [place] [address]- 3176 08 Aug, 2010 [facility] [place] [facility] [address] [id number] [place] [address]- 7308 07 Aug, 2010 [facility] [place] [facility] [address] [id number] [place] [address]- 4899 06 Aug, 2010 [facility] [place] [facility] [address] [id number] [place] [address]- 5316 Aug, [facility] [place] [facility] [address] [id number] [place] [address]- 6866 Aug, [facility] [place] [facility] [address] [id number] [place] [address]- 5616 Jul, [facility] [place] [facility] [address] [id number] [place] [address]- 9966 Jul, [facility] [place] [facility] [address] [id number] [place] [address] 2543 Jul, [facility] [place] [facility] [address] [id number] [place] [address]- 4241 Jul, [facility] [place] [facility] [address] [id number] [place] [address] 254 Jul, [facility] [place] [facility] [address] [id number] [place] [address]- 9333 Jul, [facility] [place] [facility] [address] [id number] [place] [address]- 6445 Jun, [facility] [place] [facility] [address] [id number] [place] [address]- 6569 Jun, [facility] [place] [facility] [address] [id number] [place] [address]- 5836 Jun, [facility] [place] [facility] [address] [id number] [place] [address]- 4657 Jun, [facility] [place] [facility] [address] [id number] [place] [address] 2545 Apr, [facility] [place] [facility] [address] [id number] [place] [address]- 6720 Mar, [facility] [place] [facility] [address] [id number] [place] [address]- 6256 Feb, [facility] [place] [facility] [address] [id number] [place] [address]- 1717 January, [facility] [place] [facility] [address] [id number] [place] [address]- 2068 15 Dec, 2009 [facility] [place] [facility] [address] [id number] [place] [address]- 5564 Nov, [facility] [place] [facility] [address] [id number] [place] [address]- 1433 Aug, [facility] [place] [facility] [address] [id number] [place] [address]- 2856 Aug, [facility] [place] [facility] [address] [id number] [place] [address]- 3406 Aug, [facility] [place] [facility] [address] [id number] [place] [address]- 8412 Jul, [facility] [place] [facility] [address] [facility] [id number] [place] [address]- 7139 Jul, [facility] [place] [facility] [address] [id number] [place] [address]- 0010 Jul, [facility] [place] [facility] [address] [id number] [place] [address]- 8706 30 Jun, 2009 [facility] [place] [facility] [address] [id number] [place] [address]- 2576 29 Jun, 2009 [facility] [place] [facility] [address] [facility] [id number] [place] [address] Jun, [facility] [place] [facility] [address] [id number] [address] Jun, [facility] [place] [facility] [address] [id number] [place] [address] Jun, [facility] [place] [facility] [address] [id number] [place] [address] Jun, [facility] [place] [facility] [address] [id number] [address] 17 Apr, 2009 [facility] [place] [facility] [address] [id number] [address] Apr, [facility] [address] [facility] [id number] [place] [address] Feb, [facility] [address] [facility] [id number] [address] January, [facility] [address] [facility] [id number] [place] [address] Dec, IMMUNIZATIONS No Known Immunizations SOCIAL HISTORY Never Assessed REASON FOR VISIT Controlled Med Refill 06/05/18 PLAN OF CARE VITAL SIGNS MEDICATIONS Medication [...] obesity Medical History skin cancer-basal cell R hoahaoism (removed) Medical History Arthritis Medical History degenerative [...] release (Left) 2000 Surgical History EGD ([facility]) 2009 Surgical History colonoscopy 2009 ([facility]), 2013 ([facility]) Surgical History heart 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 04/2014 Surgical History carotid US 05/2014 Surgical History resection of skin cancer from Right hoahaoism Surgical History Biopsy of Lung Bilateral/Left lung [...]
--- OUTSIDE RECORDS SUMMARY | 2018-08-08 13:43 | XMS REPORT ---
Author Author BEREKET NANCY Organization [facility] Address [address] [place] [address] Care Team Providers Care Banquet Lead Name Role Phone CLAUDIANANCY CURRIE Unavailable PROBLEMS Type Condition ICD9-CM Code FTY80-VD Code Onset Dates Condition Status SNOMED Code Problem Chronic lymphocytic leukemia C91.10 Active 51295641 Problem Lymphocytosis D72.820 Active 06927693 Problem Eye exam abnormal R93.8 Active 031802700 Problem Eustachian tube dysfunction, unspecified laterality H69.80 Active 48325207 Problem Essential hypertension I10 Active 39378356 Problem Dysuria R30.0 Active 25738947 Problem Diabetic polyneuropathy associated with type 2 diabetes mellitus E11.42 Active 44902507 Problem Cough R05 Active 74345945 Problem Polyneuropathy associated with underlying disease G63 Active 735921953 Problem Retinal edema H35.81 Active 3697106 Problem Bilateral primary osteoarthritis of knee M17.0 Active 446037710 Problem Primary osteoarthritis of right knee M17.11 Active 177804131383702 Problem Pure hypercholesterolemia E78.00 Active 234514174 Problem DM neuro manif type II E11.49 Active 63665708 Problem Benign prostatic hyperplasia with lower urinary tract symptoms, unspecified morphology N40.1 Active 251476831 Problem Hypokalemia E87.6 Active 84443462 Problem 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 Active 060379302 Problem Anemia of chronic illness D63.8 Active 323607991 Problem Bipolar disorder, in partial remission, most recent episode depressed F31.75 Active 25546730 Problem Falling R29.6 Active 976465416 Problem Leukocytosis D72.829 Active 966047506 Problem Reactive airway disease J45.909 Active 234571216368 Problem Diabetes E11.9 Active 45355565 Problem Chronic pain G89.29 Active 59793419 Problem Anxiety F41.9 Active 12471806 Problem Morbid obesity E66.01 Active 034380126 Problem Bipolar I disorder, most recent episode (or current) mixed, moderate F31.62 Active 15318303 Problem Insomnia, unspecified type G47.00 Active [id number] ALLERGIES No Information ENCOUNTERS Encounter Location Date Diagnosis [facility] [id number] [place] [address] 19919- 2692 Jun, [facility] [id number] [place] [address] 25075- 2656 Jun, [facility] [address] 81009- 6301 Jun, [facility] [id number] [place] [address] 62524- 0753 May, Chronic pain G89.29 [facility] [id number] [place] [address] 50752- 3034 Apr, [facility] [address] 14884- 2841 Apr, Chronic pain G89.29 [facility] [id number] [place] [address] 32714- 0249 Apr, Primary osteoarthritis of right knee M17.11 [facility] [id number] [place] [address] 44956- 3025 Mar, [facility] [id number] [place] [address] 03981- 9812 Mar, BMI 50.0-59.9, adult Z68.43 and Bipolar disorder, in partial remission, most recent episode depressed F31.75 [facility] [id number] [place] [address] 59199- 0818 Mar, Diabetes E11.9 ; Pure hypercholesterolemia E78.00 ; Essential hypertension I10 ; Nausea with vomiting, unspecified R11.2 and Headache, unspecified headache type R51 [facility] [id number] [place] [address] 38212- 1933 Mar, Bipolar I disorder, most recent episode (or current) mixed, moderate F31.62 [facility] [address] [address] 3385 Mar, Bipolar I disorder, most recent episode (or current) mixed, moderate F31.62 [facility] [address] [place] [address] 35544- 8733 Mar, Chronic pain G89.29 [facility] [id number] [place] [address] 24484- 7495 Mar, Bipolar I disorder, most recent episode (or current) mixed, moderate F31.62 [facility] [id number] [place] [address] 11207- 9728 Feb, Bipolar I disorder, most recent episode (or current) mixed, moderate F31.62 [facility] [id number] [place] [address] 78636- 8901 Feb, Chronic pain G89.29 [facility] [id number] [place] [address] 90695- 9164 Feb, Decubitus ulcer of right foot, stage 3 L89.893 and BMI 50.0- 59.9, adult Z68.43 [facility] [id number] [place] [address] 98069- 0930 Feb, Bipolar I disorder, most recent episode (or current) mixed, moderate F31.62 [facility] [address] [place] [address] 69492- 7813 Feb, [facility] [id number] [place] [address] 52621- 5204 January, [facility] [id number] [place] [address] 41103- 6557 January, Chronic pain G89.29 [facility] [address] [place] [address] 32759- 9744 January, Bipolar I disorder, most recent episode (or current) mixed, moderate F31.62 [facility] [address] [place] [address]- 5058 January, Bipolar I disorder, most recent episode (or current) mixed, moderate F31.62 [facility] [id number] [place] [address] 54773- 5899 Dec, Bipolar I disorder, most recent episode (or current) mixed, moderate F31.62 and BMI 50.0-59.9, adult Z68.43 [facility] [address] 21832- 5328 Dec, Bipolar I disorder, most recent episode (or current) mixed, moderate F31.62 [facility] [address] 14709- 1990 Dec, Chronic pain G89.29 [facility] [id number] [place] [address] 58468- 6021 Dec, DM neuro manif type II E11.49 ; Right flank pain R10.9 ; 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 ; Encounter for medication monitoring Z51.81 and BMI 50.0-59.9, adult Z68.43 [facility] [address] 17379- 3805 Dec, Bipolar I disorder, most recent episode (or current) mixed, moderate F31.62 [facility] [id number] [place] [address] 44662- 0252 Nov, Bipolar I disorder, most recent episode (or current) mixed, moderate F31.62 [facility] [id number] [place] [address] 60068- 2597 Nov, Chronic pain G89.29 [facility] [address] 29754- 3787 Nov, Bipolar I disorder, most recent episode (or current) mixed, moderate F31.62 [facility] [id number] [place] [address] 41551- 6335 Nov, Hypokalemia E87.6 [facility] [id number] [place] [address] 32068- 7977 Nov, Bipolar I disorder, most recent episode (or current) mixed, moderate F31.62 [facility] [id number] [place] [address] 46954- 5189 Oct, Chronic pain G89.29 [facility] [address] 47902- 2988 Oct, BMI 50.0-59.9, adult Z68.43 and Bipolar I disorder, most recent episode (or current) mixed, moderate F31.62 [facility] [address] 05643- 0854 Oct, Bipolar I disorder, most recent episode (or current) mixed, moderate F31.62 [facility] [address] 52174- 6761 Oct, [facility] [address] 98124- 9182 Oct, Hypokalemia E87.6 [facility] [id number] [place] [address] 10282- 5230 Oct, DM neuro manif type II E11.49 [facility] [id number] [place] [address] 52698- 1071 Oct, Bipolar I disorder, most recent episode (or current) mixed, moderate F31.62 [facility] [id number] [place] [address] 15960- 3931 Oct, Bipolar I disorder, most recent episode (or current) mixed, moderate F31.62 [facility] [id number] [place] [address] 36992- 3627 14 Oct, 2017 Hyperkalemia E87.5 ; Falling R29.6 ; BMI 50.0-59.9, adult Z68.43 and Acute left ankle pain M25.572 [facility] [address] [place] [address] 12099- 6635 08 Oct, 2017 DM neuro manif type II E11.49 [address] [id number] [place] [address] 90643- 9027 Oct, [facility] [id number] [place] [address] 14315- 6270 Sep, Chronic pain G89.29 [facility] [address] 58908- 8397 Sep, [facility] [address] 94034- 2488 Sep, Bilateral primary osteoarthritis of knee M17.[address] 09404- 7573 Sep, Generalized edema R60.[address] 08829- 0088 Sep, Bipolar I disorder, most recent episode (or current) mixed, moderate F31.62 [id number] [place] [address] 75578- 8900 15 Sep, 2017 Hypoxia R09.02 ; Other hypervolemia E87.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 ; Anemia of chronic illness D63.8 and BMI 50.0- 59.9, adult Z68.43 [id number] [place] [address] 48722- 3002 Sep, [id number] [place] [address] 96437- 0038 Sep, Bipolar I disorder, most recent episode (or current) mixed, moderate F31.62 [id number] [place] [address] 63335- 5232 Aug, Chronic pain G89.29 [facility] [address] [address]- 4614 Aug, Generalized edema R60.1 [facility] [id number] [place] [address] 89105- 5706 Aug, [facility] [address] [place] [address] 214605- 0156 Aug, [facility] [id number] [place] [address] 227492- 6210 14 Aug, 2017 Bipolar I disorder, most recent episode (or current) mixed, moderate F31.62 [facility] [id number] [place] [address] 346512- 0294 Aug, Bipolar I disorder, most recent episode (or current) mixed, moderate F31.62 [facility] [id number] [place] [address] 39132- 2967 Aug, Chronic pain G89.29 [facility] [id number] [place] [address] 20175- 2944 Jul, Bipolar I disorder, most recent episode (or current) mixed, moderate F31.62 [facility] [id number] [place] [address] 73712- 0121 Jul, Bipolar I disorder, most recent episode (or current) mixed, moderate F31.62 and BMI 60.0-69.9, adult Z68.44 [facility] [address] [place] [address] 37822- 8022 16 Jul, 2017 Bipolar I disorder, most recent episode (or current) mixed, moderate F31.62 [facility] [address] [place] [address] 29275- 2172 06 Jul, 2017 Chronic pain G89.29 [facility] [address] [address]- 5464 02 Jul, 2017 Bipolar I disorder, most recent episode (or current) mixed, moderate F31.62 [facility] [address] [address]- 5448 18 Jun, 2017 Polyneuropathy associated with underlying disease G63 and Diabetes E11.9 [facility] [address] [place] [address] 98655- 7836 16 Jun, 2017 Bipolar I disorder, most recent episode (or current) mixed, moderate F31.62 [facility] [address] [place] [address] 92550- 0214 09 Jun, 2017 Chronic pain G89.29 [facility] [id number] [place] [address] 77564- 6524 27 May, 2017 Bipolar I disorder, most recent episode (or current) mixed, moderate F31.62 [facility] [address] [place] [address] 63139- 1892 21 May, 2017 Bipolar I disorder, most recent episode (or current) mixed, moderate F31.62 [facility] [id number] [place] [address] 18340- 2014 20 May, 2017 Diabetic polyneuropathy associated with type 2 diabetes mellitus E11.42 [facility] [address] [place] [address] 00800- 8516 18 May, 2017 Bipolar I disorder, most recent episode (or current) mixed, moderate F31.62 [facility] [address] [address]- 5108 13 May, 2017 Bipolar I disorder, most recent episode (or current) mixed, moderate F31.62 [facility] [address] [address]- 6337 May, Chronic pain G89.29 [facility] [id number] [place] [address] 62938- 4860 Apr, Bipolar I disorder, most recent episode (or current) mixed, moderate F31.62 [facility] [address] [address]- 3736 Apr, [facility] [id number] [place] [address] 95888- 4154 Apr, Chronic pain G89.29 and DM neuro manif type II E11.49 [facility] [id number] [place] [address] 13439- 6486 Apr, [facility] [id number] [place] [address] 86217- 7633 Apr, Bipolar I disorder, most recent episode (or current) mixed, moderate F31.62 [facility] [id number] [place] [address] 86697- 5571 Apr, Chronic pain G89.29 [facility] [id number] [place] [address] 89865- 7457 Apr, Iliotibial band syndrome, left M76.32 [facility] [id number] [place] [address] 49296- 9082 Apr, Bipolar I disorder, most recent episode (or current) mixed, moderate F31.62 [facility] [address] [place] [address] 12212- 3308 Mar, Bipolar I disorder, most recent episode (or current) mixed, moderate F31.62 [facility] [address] [place] [address] 40943- 9216 Mar, Bipolar I disorder, most recent episode (or current) mixed, moderate F31.62 [facility] [address] [place] [address] 52177- 0833 Mar, [facility] [address] [place] [address] 27121- 5311 Mar, Bipolar I disorder, most recent episode (or current) mixed, moderate F31.62 [facility] [address] [place] [address] 50062- 2436 Mar, Chronic pain G89.29 [facility] [id number] [place] [address] 43200- 5001 Mar, Bipolar I disorder, most recent episode (or current) mixed, moderate F31.62 [facility] [address] [place] [address] 71636- 2980 Mar, Bipolar I disorder, most recent episode (or current) mixed, moderate F31.62 [facility] [id number] [place] [address] 16535- 9027 Mar, Acute pain of left knee M25.562 ; Left hip pain M25.552 ; Generalized edema R60.1 and Tongue swelling R22.0 [facility] [id number] [place] [address] 33688- 3649 Mar, [facility] [id number] [place] [address] 54210- 8702 Feb, Chronic pain G89.29 [facility] [id number] [place] [address] 86138- 4406 Feb, Diabetes E11.9 [facility] [id number] [place] [address] 17664- 3830 January, Chronic pain G89.29 [facility] [id number] [place] [address] 28062- 2834 January, [facility] [id number] [place] [address] 09910- 0250 January, Bipolar I disorder, most recent episode (or current) mixed, moderate F31.62 [facility] [id number] [place] [address] 09825- 5926 Dec, Bipolar I disorder, most recent episode (or current) mixed, moderate F31.62 [facility] [id number] [place] [address] 82095- 1474 Dec, Chronic pain G89.29 [facility] [id number] [place] [address] 93931- 5257 Dec, Bipolar I disorder, most recent episode (or current) mixed, moderate F31.62 [facility] [address] [place] [address] 87751- 1859 Dec, Diabetes E11.9 ; Essential hypertension I10 ; Chronic pain G89.29 and Morbid obesity E66.01 [facility] [id number] [place] [address] 47817- 7036 Dec, [facility] [id number] [place] [address] 10761- 1010 Dec, Bipolar I disorder, most recent episode (or current) mixed, moderate F31.62 [facility] [id number] [place] [address] 96408- 7233 Dec, Bipolar I disorder, most recent episode (or current) mixed, moderate F31.62 [facility] [id number] [place] [address] 98027- 9576 Nov, Chronic pain G89.29 [facility] [id number] [place] [address] 88555- 8196 Nov, Bipolar I disorder, most recent episode (or current) mixed, moderate F31.62 [facility] [id number] [place] [address] 57367- 5100 Nov, [facility] [id number] [place] [address] 45145- 5204 Nov, Bipolar I disorder, most recent episode (or current) mixed, moderate F31.62 [facility] [id number] [place] [address] 07288- 5737 Nov, Bipolar I disorder, most recent episode (or current) mixed, moderate F31.62 [facility] [id number] [place] [address] 91394- 8986 Nov, [facility] [id number] [place] [address] 31822- 7480 Nov, [facility] [id number] [place] [address] 71137- 1952 Nov, [facility] [address] [address]- 7768 Oct, Chronic pain G89.29 [facility] [id number] [place] [address] 97471- 6636 Oct, Bipolar I disorder, most recent episode (or current) mixed, moderate F31.62 [facility] [id number] [place] [address] 97738- 4989 Oct, [facility] [id number] [place] [address] 06941- 4936 Oct, Chronic pain G89.29 ; Diabetes E11.9 ; Anxiety F41.9 and 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 [facility] [id number] [place] [address] 22277- 3122 Oct, [facility] [id number] [place] [address] 51350- 9384 Oct, Diabetes E11.9 [facility] [id number] [place] [address] 03179- 0439 Oct, Bipolar I disorder, most recent episode (or current) mixed, moderate F31.62 [facility] [address] [place] [address] 37530- 0506 Sep, Chronic pain G89.29 [facility] [id number] [place] [address] 21485- 3825 Sep, Chronic pain G89.29 [facility] [address] [place] [address] 16925- 4421 Aug, Chronic pain G89.29 [facility] [id number] [place] [address] 04472- 8371 Jul, [facility] [address] [address]- 5563 Jul, Diabetes E11.9 [facility] [id number] [place] [address] 19914- 2641 Jul, Chronic pain G89.29 [facility] [id number] [place] [address] 31856- 7666 Jul, Bipolar I disorder, most recent episode (or current) mixed, moderate F31.62 [facility] [id number] [place] [address] 86512- 5956 Jun, Bipolar I disorder, most recent episode (or current) mixed, moderate F31.62 [facility] [id number] [place] [address] 04377- 0983 Jun, [facility] [id number] [place] [address] 95878- 4651 Jun, Bipolar I disorder, most recent episode (or current) mixed, moderate F31.62 [facility] [id number] [place] [address] 84465- 7873 30 May, 2016 Insomnia, unspecified type G47.00 [facility] [id number] [place] [address] 23500- 7302 May, Bipolar I disorder, most recent episode (or current) mixed, moderate F31.62 [facility] [id number] [place] [address] 94549- 4209 14 May, 2016 [facility] [id number] [place] [address] 98973- 4926 08 May, 2016 Bipolar I disorder, most recent episode (or current) mixed, moderate F31.62 [facility] [id number] [place] [address] 04311- 8276 06 May, 2016 Diabetes E11.9 and Essential hypertension I10 [facility] [id number] [place] [address] 34758- 5980 Apr, Chronic pain G89.29 [facility] [id number] [place] [address] 96435- 8522 Apr, Bipolar I disorder, most recent episode (or current) mixed, moderate F31.62 [facility] [address] [address]- 1058 Apr, [facility] [id number] [place] [address] 71974- 7079 Apr, [place] [id number] [place] [address] 62990- 4648 Mar, Chronic pain G89.29 ; Headache, unspecified headache type R51 ; Neuropathy G62.9 ; Pain of right hip joint M25.551 and Essential hypertension I10 [place] [id number] [place] [address] 54820- 8444 Mar, Chronic pain G89.29 [place] [id number] [place] [address] 92808- 8624 Mar, Bipolar I disorder, most recent episode (or current) mixed, moderate F31.62 [place] [id number] [place] [address] 44186- 7388 Feb, Bipolar I disorder, most recent episode (or current) mixed, moderate F31.62 and Insomnia, unspecified type G47.00 [place] [id number] [place] [address] 02677- 2668 Feb, Chronic pain G89.29 [place] [id number] [place] [address] 45186- 8700 Feb, Bipolar I disorder, most recent episode (or current) mixed, moderate F31.62 [place] [id number] [address] January, Bipolar I disorder, most recent episode (or current) mixed, moderate F31.62 [place] [id number] [place] [address] 61697- 3394 January, Chronic pain G89.29 [place] [id number] [place] [address] 97171- 4245 January, Chronic pain G89.29 and Essential hypertension I10 [facility] [id number] [place] [address] 17013- 7229 January, Bipolar I disorder, most recent episode (or current) mixed, moderate F31.62 [facility] [id number] [place] [address] 05783- 8246 Dec, [facility] [address] [address] Dec, [facility] [id number] [place] [address] 83002- 3236 Dec, [facility] [id number] [place] [address] 16881- 9807 Dec, [facility] [id number] [place] [address] 44640- 4242 Nov, Reactive airway disease J45.909 [facility] [id number] [place] [address] 18454- 4692 Nov, [facility] [id number] [place] [address] 21137- 6251 Nov, [facility] [id number] [place] [address] 98032- 0768 Nov, [facility] [id number] [place] [address] 13692- 0577 Nov, [facility] [id number] [place] [address] 70409- 5307 Nov, Onychomycosis B35.1 ; Hammertoe M20.40 ; [place] or callus L84 and DM neuro manif type II E11.49 [facility] [id number] [place] [address] 82527- 2966 15 Nov, 2015 Chronic pain G89.29 ; Leukocytosis D72.829 and Diabetes E11.9 [facility] [id number] [place] [address] 95216- 4911 Nov, [facility] [id number] [place] [address] 32459- 5262 Oct, Bronchitis J40 [facility] [id number] [place] [address] 21246- 9915 Oct, [facility] [id number] [place] [address] 37686- 3555 Oct, [facility] [id number] [place] [address] 01349- 3541 Oct, Mastoiditis, unspecified laterality H70.90 and Type 2 diabetes mellitus with complication E11.8 [facility] [id number] [place] [address] 73393- 8845 Sep, [facility] [id number] [place] [address] 33017- 4616 Sep, Dysuria R30.0 ; Cough R05 ; Benign prostatic hyperplasia with lower urinary tract symptoms, unspecified morphology N40.1 ; Hypokalemia E87.6 and Eustachian tube dysfunction, unspecified laterality H69.80 [facility] [id number] [place] [address] 05159- 7720 Sep, Moderate mixed bipolar I disorder F31.62 [facility] [id number] [place] [address] 65604- 6896 Sep, Hypokalemia E87.6 [facility] [id number] [place] [address] 72962- 7752 Sep, [facility] [id number] [place] [address] 19578- 5093 Sep, Upper respiratory tract infection, unspecified type J06.9 [facility] [id number] [place] [address] 79990- 1461 Aug, [facility] [id number] [place] [address] 45405- 4135 Aug, Dysuria R30.0 [facility] [address] [address]- 3641 Aug, [facility] [address] [address]- 5295 Jul, [facility] [address] [address]- 2980 Jul, [facility] [id number] [place] [address] 58688- 1768 Jul, [facility] [address] [address]- 4698 Jul, [facility] [id number] [place] [address] 11966- 4192 Jun, [facility] [address] [address]- 2747 Jun, [facility] [address] [address]- 2179 Jun, [facility] [address] [address]- 0477 May, [facility] [address] [address]- 1688 May, Bipolar I disorder, most recent episode (or current) mixed, moderate 296.62 [facility] [address] [address]- 7997 16 May, 2015 [facility] [address] [address]- 6005 May, Bipolar I disorder, most recent episode (or current) mixed, moderate 296.62 and Major depressive disorder, recurrent episode, severe, specified as with psychotic behavior 296.34 [facility] [id number] [address]- 3004 May, Bipolar I disorder, most recent episode (or current) mixed, moderate 296.62 [facility] [address] [address]- 5273 May, [facility] [address] [address]- 8298 Apr, [facility] [address] [address]- 3975 Apr, [facility] [id number] [place] [address] 47145- 0752 Apr, Unspecified disorder of kidney and ureter 593.9 and Diabetes mellitus type 2, uncontrolled 250.02 [facility] [address] [address]- 4357 Apr, [facility] [address] [address]- 6981 Apr, [facility] [address] [address]- 1607 Apr, [facility] [address] [address]- 8799 Apr, [facility] [address] [address]- 8482 Apr, Diabetes mellitus type II, uncontrolled 250.02 [facility] [address] [address]- 7738 Apr, [facility] [address] [address]- 8750 Mar, [facility] [id number] [address]- 6049 Mar, [facility] [address] [address]- 7647 Mar, [facility] [address] [address]- 0427 Mar, Major depressive disorder, recurrent episode, severe, specified as with psychotic behavior 296.34 and Bipolar I disorder, most recent episode (or current) mixed, moderate 296.62 [facility] [address] [address]- 5391 Mar, Diabetes 250.00 ; Anuria 788.5 ; Nausea and vomiting 787.01 and Diarrhea 787.91 [facility] [address] [address]- 6407 Mar, Diabetes 250.00 [facility] [id number] [place] [address] 67015- 0247 Mar, [facility] [id number] [place] [address] 20738- 4534 Mar, Diabetes 250.00 [facility] [id number] [place] [address] 19733- 3523 Mar, [facility] [id number] [place] [address] 59380- 9267 Mar, [facility] [id number] [place] [address] 96367- 4043 Mar, [facility] [id number] [place] [address] 24691- 6401 Mar, [facility] [id number] [place] [address] 32818- 6282 Mar, Bipolar I disorder, most recent episode (or current) mixed, moderate 296.62 and Major depressive disorder, recurrent episode, severe, specified as with psychotic behavior 296.34 [facility] [address] [place] [address] 20356- 9066 Mar, Magnesium deficiency 275.2 ; Hypokalemia 276.8 ; Nausea & vomiting 787.01 and Diabetes mellitus type 2, uncontrolled 250.02 [facility] [address] [place] [address] 01672- 1776 Feb, [facility] [id number] [place] [address] 67413- 5232 Feb, Bipolar I disorder, most recent episode (or current) mixed, moderate 296.62 [facility] [id number] [place] [address] 74203- 1366 Feb, Nausea and vomiting 787.01 ; Left elbow pain 719.42 ; Anuria 788.5 and Diabetes 250.00 [facility] [id number] [place] [address] 07391- 8633 Feb, [facility] [address] 54235- 3344 Feb, Hypopotassemia 276.8 and Hypokalemia 276.8 [facility] [id number] [place] [address] 96466- 5728 Feb, Hypopotassemia 276.8 and Hypokalemia 276.8 [facility] [id number] [place] [address] 75519- 7011 Feb, Seborrheic keratoses 702.19 [facility] [id number] [place] [address] 83836- 0640 Feb, Hypopotassemia 276.8 and Low magnesium levels 275.2 [facility] [id number] [place] [address] 70261- 2393 January, [facility] [id number] [place] [address] 61861- 4656 January, [facility] [id number] [place] [address] 27727- 7923 January, [facility] [id number] [place] [address] 53687- 5745 January, Scalp lesion 709.9 [facility] [id number] [place] [address] 94798- 0291 January, [facility] [id number] [place] [address] 48110- 1564 Dec, Tear of medial cartilage or meniscus of knee, current 836.0 and 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 [facility] [address] [id number] [place] [address]- 2863 29 Dec, 2014 [facility] [place] [facility] [address] [id number] [place] [address]- 6543 29 Dec, 2014 [facility] [place] [facility] [address] [facility] [id number] [place] [address]- 1477 28 Dec, 2014 Squamous cell carcinoma, 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 [facility] [place] [facility] [address] [id number] [place] [address]- 5301 14 Dec, 2014 [facility] [place] [facility] [address] [id number] [place] [address]- 6917 Dec, [facility] [place] [facility] [address] [facility] [id number] [place] [address]- 8796 Nov, [facility] [place] [facility] [address] [facility] [id number] [place] [address]- 8850 Nov, [facility] [place] [facility] [address] [facility] [id number] [place] [address]- 0669 Nov, [facility] [place] [facility] [address] [facility] [id number] [place] [address]- 2628 Nov, [facility] [place] [facility] [address] [facility] [id number] [place] [address]- 3503 Nov, [facility] [place] [facility] [address] [facility] [id number] [place] [address]- 8845 Nov, [facility] [place] [facility] [address] [id number] [address]- 8125 Nov, [facility] [place] [facility] [address] [facility] [id number] [place] [address]- 0042 Nov, [facility] [place] [facility] [address] [facility] [id number] [place] [address]- 6947 Nov, [facility] [place] [facility] [address] [facility] [id number] [place] [address]- 1548 Nov, [facility] [place] [facility] [address] [facility] [id number] [place] [address]- 4653 Nov, [facility] [place] [facility] [address] [id number] [place] [address]- 2639 Nov, [facility] [place] [facility] [address] [id number] [place] [address]- 0001 Oct, 2014 [facility] [place] [facility] [address] [facility] [id number] [place] [address]- 4288 Oct, 2014 [facility] [place] [facility] [address] [id number] [place] [address]- 6241 Oct, 2014 [facility] [place] [facility] [address] [id number] [place] [address]- 4026 Oct, 2014 [facility] [place] [facility] [address] [facility] [id number] [place] [address]- 0142 Oct, 2014 [facility] [place] [facility] [address] [facility] [id number] [place] [address]- 9405 Oct, 2014 [facility] [place] [facility] [address] [facility] [id number] [place] [address]- 8144 Oct, 2014 [facility] [place] [facility] [address] [facility] [id number] [place] [address]- 4104 Oct, 2014 [facility] [place] [facility] [address] [facility] [id number] [place] [address]- 9885 Oct, [facility] [place] [facility] [address] [facility] [id number] [place] [address]- 3418 Sep, [facility] [place] [facility] [address] [id number] [place] [address]- 1313 Sep, [facility] [place] [facility] [address] [id number] [place] [address]- 4565 Sep, [facility] [place] [facility] [address] [facility] [id number] [place] [address]- 6850 Sep, [facility] [place] [facility] [address] [facility] [id number] [place] [address]- 5373 Sep, [facility] [place] [facility] [address] [id number] [place] [address]- 1045 Sep, [facility] [place] [facility] [address] [id number] [place] [address]- 1771 Sep, [facility] [place] [facility] [address] [id number] [place] [address]- 8117 Sep, [facility] [place] [facility] [address] [id number] [place] [address]- 7034 Sep, [facility] [place] [facility] [address] [id number] [place] [address]- 1677 Sep, [facility] [place] [facility] [address] [id number] [place] [address]- 2299 Sep, [facility] [place] [facility] [address] [id number] [place] [address]- 0491 Sep, [facility] [place] [facility] [address] [id number] [place] [address]- 0879 Sep, [facility] [place] [facility] [address] [id number] [place] [address]- 4546 Sep, [facility] [place] [facility] [address] [id number] [place] [address]- 2002 Sep, [facility] [place] [facility] [address] [id number] [address]- 3844 Sep, [facility] [place] [facility] [address] [id number] [address]- 0406 Aug, [facility] [place] [facility] [address] [id number] [place] [address]- 1656 Aug, [facility] [place] [facility] [address] [id number] [place] [address]- 0525 Aug, [facility] [place] [facility] [address] [id number] [place] [address]- 6335 Aug, [facility] [place] [facility] [address] [id number] [place] 3443 Aug, [facility] [address] [id number] [place] 1170 Aug, [facility] [address] [id number] [place] [address]- 1925 Aug, [facility] [address] [id number] [place] 6266 Aug, [facility] [address] [id number] [place] [address]- 9790 Aug, [facility] [address] [id number] [place] [address]- 5664 Aug, [facility] [address] [id number] [place] [address]- 5488 Aug, [facility] [address] [place] [id number] Aug, [facility] [address] [id number] [place] [address]- 7483 Aug, [facility] [address] [id number] [place] [address]- 5372 Aug, [facility] [address] [id number] [place] [address]- 7862 Aug, [facility] [address] [id number] [place] [address]- 5264 Aug, [facility] [address] [id number] [place] [address]- 0574 Aug, [facility] [address] [id number] [place] [address]- 1622 Aug, [facility] [address] [id number] [place] [address]- 0565 Aug, [facility] [address] [id number] [place] [address]- 6764 Aug, [facility] [place] [facility] [address] [id number] [place] [address]- 2922 08 Aug, 2014 [facility] [place] [facility] [address] [id number] [place] [address]- 0248 Aug, [facility] [place] [facility] [address] [id number] [place] 4447 Aug, [facility] [place] [facility] [address] [id number] [place] [address]- 0045 Aug, [facility] [place] [facility] [address] [id number] [place] [address]- 0973 Aug, [facility] [place] [facility] [address] [id number] [place] 6243 Aug, [facility] [place] [facility] [address] [id number] [place] [address]- 5440 Aug, [facility] [place] [facility] [address] [id number] [place] [address]- 8862 Aug, [facility] [place] [facility] [address] [id number] [place] [address]- 6766 Aug, [facility] [place] [facility] [address] [id number] [place] [address]- 2524 Aug, [facility] [place] [facility] [address] [id number] [place] [address]- 9458 Jul, [facility] [place] [facility] [address] [id number] [place] [address]- 5357 Jul, [facility] [place] [facility] [address] [id number] [place] [address]- 6564 Jul, [facility] [place] [facility] [address] [id number] [place] [address]- 8221 Jul, [facility] [place] [facility] [address] [id number] [place] [address]- 3941 Jul, [facility] [place] [facility] [address] [id number] [place] [address]- 6275 Jul, [facility] [place] [facility] [address] [id number] [place] 5265 Jul, [facility] [place] [facility] [address] [id number] [place] [address]- 6721 Jul, [facility] [place] [facility] [address] [id number] [place]- 0501 Jul, [facility] [place] [facility] [address] [id number] [place] [address]- 5583 Jul, [facility] [place] [facility] [address] [id number] [place] [address]- 0316 Jun, [facility] [place] [facility] [address] [id number] [place] [address]- 0645 Jun, [facility] [place] [facility] [address] [id number] [place] [address]- 4523 Jun, [facility] [place] [facility] [address] [id number] [place] [address]- 3266 Jun, [facility] [place] [facility] [address] [id number] [place] [address]- 5884 Jun, [facility] [place] [facility] [address] [id number] [place] [address]- 7354 Jun, [facility] [place] [facility] [address] [id number] [place] [address]- 4656 Jun, [facility] [place] [facility] [address] [id number] [address]- 8182 Jun, [facility] [place] [facility] [address] [id number] [place] [address]- 9239 Jun, [facility] [place] [facility] [address] [id number] [place] 3686 Jun, [facility] [place] [facility] [address] [id number] [place] 9397 May, [facility] [place] [facility] [address] [id number] [place] [address]- 5985 29 Sep, 2013 [facility] [place] [facility] [address] [id number] [place] [address] 2546 26 Sep, 2013 [facility] [place] [facility] [address] [id number] [place] [address]- 7166 26 Sep, 2013 [facility] [place] [facility] [address] [id number] [place] [address] 2546 17 Sep, 2013 [facility] [place] [facility] [address] [id number] [place] [address]- 254 17 Sep, 2013 [facility] [place] [facility] [address] [id number] [place] [address]- 2124 15 Sep, 2013 [facility] [place] [facility] [address] [id number] [place] [address]- 3496 15 Sep, 2013 [facility] [place] [facility] [address] [id number] [place] [address]- 1864 15 Sep, 2013 [facility] [place] [facility] [address] [id number] [place] [address]- 2547 15 Sep, 2013 [facility] [place] [facility] [address] [id number] [place] [address]- 3875 10 Sep, 2013 [facility] [place] [facility] [address] [id number] [place] [address]- 2545 10 Sep, 2013 [facility] [place] [facility] [address] [id number] [place] [address] 2542 09 Sep, 2013 [facility] [place] [facility] [address] [id number] [address]- 2549 09 Sep, 2013 [facility] [place] [facility] [address] [id number] [place] [address] 2543 04 Sep, 2013 [facility] [place] [facility] [address] [id number] [place] [address]- 2544 04 May, 2013 [facility] [place] [facility] [address] [id number] [place] [address] 30 Apr, 2013 [facility] [place] [facility] [address] [id number] [place] [address] Apr, [facility] [place] [facility] [address] [id number] [place] [address] Apr, [facility] [place] [facility] [address] [id number] [place] [address] Apr, [facility] [place] [facility] [address] [id number] [place] [address] Apr, [facility] [place] [facility] [address] [id number] [place] [address] Apr, [facility] [place] [facility] [address] [id number] [place] [address] Apr, [facility] [place] [facility] [address] [id number] [place] [address] Apr, [facility] [place] [facility] [address] [id number] [place] [address] Apr, [facility] [place] [facility] [address] [id number] [place] [address] Apr, [facility] [place] [facility] [address] [id number] [place] [address] Apr, [facility] [place] [facility] [address] [id number] [place] [address] Apr, [facility] [place] [facility] [address] [id number] [place] [address] Apr, [facility] [place] [facility] [address] [id number] [place] [address] Apr, [facility] [place] [facility] [address] [id number] [place] [address] 95[address] Apr, [facility] [place] [facility] [address] [id number] [place] [address] Mar, [facility] [place] [facility] [address] [id number] [place] [address] 9868 Mar, 2013 [facility] [place] [facility] [address] [id number] [place] [address] Mar, 2013 [facility] [place] [facility] [address] [id number] [place] [address] Mar, 2013 [facility] [place] [facility] [address] [id number] [place] [address] Mar, 2013 [facility] [place] [facility] [address] [id number] [place] [address] 285[address] Mar, 2013 [facility] [place] [facility] [address] [id number] [place] [address] Mar, 2013 [facility] [place] [facility] [address] [id number] [place] [address] Mar, 2013 [facility] [place] [facility] [address] [id number] [place] [address] 70[address] Mar, 2013 [facility] [place] [facility] [address] [id number] [place] [address]- 1064 Mar, 2013 [facility] [place] [facility] [address] [id number] [place] [address] Mar, 2013 [facility] [place] [facility] [address] [id number] [place] [address] Mar, 2013 [facility] [place] [facility] [address] [id number] [place] [address] Mar, 2013 [facility] [place] [facility] [address] [id number] [place] [address] Mar, 2013 [facility] [place] [facility] [address] [id number] [place] [address]277 Mar, 2013 [facility] [place] [facility] [address] [id number] [place] [address]- [address]843 Mar, 2013 [facility] [place] [facility] [address] [id number] [place] [address]- 8566 Mar, 2013 [facility] [place] [facility] [address] [id number] [place] [address] 8485 Mar, [facility] [place] [facility] [address] [id number] [place] [address] 86[address] Feb, [facility] [place] [facility] [address] [id number] [place] [address] Feb, [facility] [place] [facility] [address] [id number] [place] [address] 89[address] Feb, [facility] [place] [facility] [address] [id number] [place] [address] Feb, [facility] [place] [facility] [address] [id number] [place] [address]- 8636 Feb, [facility] [place] [facility] [address] [id number] [place] [address] Feb, [facility] [place] [facility] [address] [id number] [place] [address] Feb, [facility] [place] [facility] [address] [id number] [place] [address] Feb, [facility] [place] [facility] [address] [id number] [place] [address] 1468 Feb, [facility] [place] [facility] [address] [id number] [place] [address] Feb, [facility] [place] [facility] [address] [id number] [place] [address]- 0697 Feb, [facility] [place] [facility] [address] [id number] [place] [address] 8169 Feb, [facility] [place] [facility] [address] [id number] [place] [address] 8164 Feb, [facility] [place] [facility] [address] [id number] [place] [address] Feb, [facility] [place] [facility] [address] [id number] [place] [address] January, [facility] [place] [facility] [address] [id number] [place] [address] January, [facility] [address] [id number] [place] [address] 116[address] January, [facility] [address] [id number] [place] [address]- 3056 January, [facility] [address] [id number] [place] [address] 47[address] January, [facility] [address] [id number] [place] [address] January, [facility] [place] [facility] [address] [id number] [place] [address] January, [facility] [address] [id number] [place] [address] 94[address] January, [facility] [address] [id number] [place] [address] 3668 January, [facility] [address] [id number] [place] [address] 6027 January, [facility] [address] [id number] [place] [address] 5[address] January, [facility] [place] [facility] [address] [id number] [place] [address] 8367 January, [facility] [place] [facility] [address] [id number] [place] [address] 5873 January, [facility] [place] [facility] [address] [id number] [place] [address] 1835 January, [facility] [place] [facility] [address] [id number] [place] [address] 6961 Dec, [facility] [place] [facility] [address] [id number] [place] [address]- 7451 Dec, [facility] [place] [facility] [address] [id number] [place] [address]- 3088 Dec, [facility] [place] [facility] [address] [id number] [place] [address]- 5830 Dec, [facility] [place] [facility] [address] [id number] [place] [address]- 9887 Dec, [facility] [place] [facility] [address] [id number] [place] [address]- 2960 Dec, [facility] [place] [facility] [address] [id number] [place] [address]- 1287 Dec, [facility] [place] [facility] [address] [id number] [place] [address]- 1081 Dec, [facility] [place] [facility] [address] [id number] [place] [address]- 5438 Dec, [facility] [place] [facility] [address] [id number] [place] [address]- 0132 Dec, [facility] [place] [facility] [address] [id number] [place] [address]- 7524 Nov, [facility] [place] [facility] [address] [id number] [place] [address]- 8472 Nov, [facility] [place] [facility] [address] [id number] [place] [address]- 8247 Nov, [facility] [place] [facility] [address] [id number] [place] [address]- 7592 Nov, [facility] [place] [facility] [address] [id number] [place] [address]- 9380 Nov, [facility] [place] [facility] [address] [id number] [place] [address]- 5932 Nov, [facility] [place] [facility] [address] [id number] [place] [address]- 9727 Nov, [facility] [place] [facility] [address] [id number] [place] [address]- 6793 Nov, [facility] [place] [facility] [address] [id number] [place] [address]- 6542 Nov, [facility] [place] [facility] [address] [id number] [place] [address]- 4770 Nov, [facility] [place] [facility] [address] [id number] [place] [address]- 9166 Oct, [facility] [place] [facility] [address] [id number] [place] [address]- 3518 Oct, [facility] [place] [facility] [address] [id number] [place] [address]- 5412 Oct, [facility] [place] [facility] [address] [id number] [place] [address]- 6489 Oct, [facility] [place] [facility] [address] [id number] [place] [address]- 9048 Oct, [facility] [place] [facility] [address] [id number] [place] [address]- 8571 Oct, [facility] [place] [facility] [address] [id number] [place] [address]- 2226 Oct, [facility] [place] [facility] [address] [id number] [place] [address]- 7203 Oct, [facility] [place] [facility] [address] [id number] [place] [address]- 7951 Oct, [facility] [place] [facility] [address] [id number] [place] [address]- 5941 Oct, [facility] [place] [facility] [address] [id number] [place] [address]- 6940 Oct, [facility] [place] [facility] [address] [id number] [place] [address]- 9507 Oct, [facility] [place] [facility] [address] [id number] [place] [address]- 4418 Oct, [facility] [place] [facility] [address] [id number] [place] [address]- 5792 Oct, [facility] [address] [id number] [place] [address]- 7868 Sep, [facility] [place] [facility] [address] [id number] [place] [address]- 5080 Sep, [facility] [place] [facility] [address] [id number] [place] [address]- 6278 15 Sep, 2013 [facility] [place] [facility] [address] [id number] [place] [address]- 8457 15 Sep, 2013 [facility] [place] [facility] [address] [id number] [place] [address]- 2496 Sep, [facility] [place] [facility] [address] [id number] [place] [address]- 2737 Sep, [facility] [place] [facility] [address] [id number] [place] [address]- 0602 Sep, [facility] [place] [facility] [address] [id number] [place] [address]- 5875 Sep, [facility] [place] [facility] [address] [id number] [place] [address]- 4293 Sep, [facility] [place] [facility] [address] [id number] [place] [address]- 1527 Sep, [facility] [place] [facility] [address] [id number] [place] [address]- 9953 Aug, [facility] [place] [facility] [address] [id number] [place] [address]- 4282 Aug, [facility] [place] [facility] [address] [id number] [place] [address]- 5650 Jul, [facility] [place] [facility] [address] [id number] [place] [address]- 2241 Jul, [facility] [place] [facility] [address] [id number] [place] [address]- 5546 Jul, [facility] [place] [facility] [address] [id number] [place] [address]- 2241 Jul, [facility] [place] [facility] [address] [id number] [place] [address]- 4715 Jul, [facility] [place] [facility] [address] [id number] [place] [address]- 9368 Jul, [facility] [place] [facility] [address] [id number] [place] [address]- 7486 Jul, [facility] [place] [facility] [address] [id number] [place] [address]- 0197 Jul, [facility] [place] [facility] [address] [id number] [place] [address]- 2779 Jul, [facility] [place] [facility] [address] [id number] [place] [address]- 1828 Jul, [facility] [place] [facility] [address] [id number] [place] [address]- 9883 Jul, [facility] [place] [facility] [address] [id number] [place] [address]- 7384 Jul, [facility] [place] [facility] [address] [id number] [place] [address]- 4067 Jul, [facility] [place] [facility] [address] [id number] [place] [address]- 8160 Jul, [facility] [place] [facility] [address] [id number] [place] [address]- 9631 Jul, [facility] [place] [facility] [address] [id number] [place] [address]- 7782 Jul, [facility] [place] [facility] [address] [id number] [place] [address]- 2985 Jul, [facility] [place] [facility] [address] [id number] [place] [address]- 6971 Jul, [facility] [place] [facility] [address] [id number] [address]- 2566 Jul, [facility] [place] [facility] [address] [id number] [place] [address]- 1477 16 Jun, 2012 [facility] [place] [facility] [address] [id number] [place] [address]- 6463 Jun, 2012 [facility] [place] [facility] [address] [id number] [place] [address]- 0555 Jun, 2012 [facility] [place] [facility] [address] [id number] [place] [address]- 3260 Jun, 2012 [facility] [place] [facility] [address] [id number] [place] [address]- 2949 Jun, 2012 [facility] [place] [facility] [address] [id number] [place] [address]- 3444 Jun, 2012 [facility] [place] [facility] [address] [id number] [address]- 5084 Jun, 2012 [facility] [place] [facility] [address] [id number] [address]- 0483 10 Jun, 2012 [facility] [place] [facility] [address] [id number] [address]- 1056 Jun, [facility] [place] [facility] [address] [id number] [address]- 6781 Jun, [facility] [place] [facility] [address] [id number] [address]- 8799 Jun, [facility] [place] [facility] [address] [id number] [address]- 9129 26 May, 2012 [facility] [place] [facility] [address] [id number] [place] [address]- 5709 25 Sep, 2012 [facility] [place] [facility] [address] [id number] [address]- 6257 19 May, 2012 [facility] [place] [facility] [address] [id number] [address]- 6555 17 Sep, 2012 [facility] [place] [facility] [address] [id number] [place] [address]- 1090 11 May, 2013 [facility] [address] [id number] [place] [address]- 6959 10 May, 2013 [facility] [place] [facility] [address] [id number] [place] [address]- 4776 May, [facility] [address] [id number] [place] [address]- 5130 05 May, 2013 [facility] [place] [facility] [address] [id number] [place] [address]- 7694 Apr, [facility] [address] [id number] [place] [address]- 7360 Apr, [facility] [address] [id number] [place] [address]- 1092 Apr, [facility] [address] [id number] [place] [address]- 0821 Apr, [facility] [address] [id number] [place] [address]- 8697 Apr, [facility] [place] [facility] [address] [id number] [place] [address]- 9321 Mar, [facility] [address] [id number] [place] [address]- 6462 Mar, [facility] [place] [facility] [address] [id number] [place] [address]- 8456 Mar, [facility] [place] [facility] [address] [id number] [place] [address]- 0892 Mar, [facility] [place] [facility] [address] [id number] [place] [address]- 4342 Mar, [facility] [place] [facility] [address] [id number] [place] [address]- 2847 Mar, [facility] [place] [facility] [address] [id number] [place] [address]- 5490 Mar, [facility] [address] [id number] [place] [address]- 3693 Mar, [facility] [place] [facility] [address] [id number] [place] [address]- 7290 Feb, [facility] [address] [id number] [place] [address]- 1437 Feb, [facility] [place] [facility] [address] [id number] [place] [address]- 3676 January, [facility] [address] [id number] [place] [address]- 4020 January, [facility] [place] [facility] [address] [id number] [place] [address]- 4977 Dec, [facility] [address] [id number] [place] [address]- 4496 Dec, [facility] [address] [id number] [place] [address]- 8861 Nov, [facility] [address] [id number] [place] [address]- 4372 Nov, [facility] [place] [facility] [address] [id number] [place] [address]- 9523 Nov, [facility] [place] [facility] [address] [id number] [place] [address]- 9173 Nov, [facility] [place] [facility] [address] [id number] [place] [address]- 9818 Oct, [facility] [place] [facility] [address] [id number] [place] [address]- 1244 Oct, [facility] [place] [facility] [address] [id number] [place] [address]- 3846 Oct, [facility] [place] [facility] [address] [id number] [place] [address]- 1486 Oct, [facility] [place] [facility] [address] [id number] [place] [address]- 6541 16 Oct, 2012 [facility] [address] [id number] [place] [address]- 8326 14 Oct, 2012 [facility] [address] [id number] [place] [address] 2546 08 Oct, 2012 [facility] [address] [id number] [place] [address]- 2606 07 Oct, 2012 [facility] [address] [id number] [place] [address] 254 03 Oct, 2012 [facility] [address] [id number] [place] [address]- 8547 30 Sep, 2012 [facility] [address] [id number] [place] [address]- 2597 Sep, [facility] [address] [id number] [place] [address]- 7345 Sep, [facility] [address] [id number] [place] [address]- 8997 Sep, [facility] [address] [id number] [place] [address]- 5340 Sep, [facility] [address] [id number] [place] [address]- 2614 Sep, [facility] [address] [id number] [place] [address]- 1590 Sep, [facility] [address] [id number] [place] [address]- 3042 Sep, [facility] [address] [id number] [place] [address]- 7649 Aug, [facility] [address] [id number] [place] [address]- 0844 Aug, [facility] [address] [id number] [place]15 Aug, [facility] [place] [facility] [address] [id number] [place] [address]- 0136 Aug, [facility] [place] [facility] [address] [id number] [place] [address]- 6079 Aug, [facility] [place] [facility] [address] [id number] [place] [address]- 2427 Aug, [facility] [place] [facility] [address] [id number] [place] [address]- 5396 Aug, [facility] [place] [facility] [address] [id number] [place] [address]- 7985 Aug, [facility] [place] [facility] [address] [id number] [place] [address]- 1432 Jul, [facility] [place] [facility] [address] [id number] [place] [address]- 6110 Jul, [facility] [place] [facility] [address] [id number] [address]- 3789 Jul, [facility] [place] [facility] [address] [id number] [place] [address]- 3780 Jul, [facility] [place] [facility] [address] [facility] [id number] [address]- 2945 Jul, [facility] [place] [facility] [address] [id number] [address]- 1837 Jul, [facility] [place] [facility] [address] [id number] [address]- 9525 Jun, [facility] [place] [facility] [address] [id number] [address]- 2503 Jun, [facility] [place] [facility] [address] [id number] [address]- 6238 Jun, [facility] [place] [facility] [address] [id number] [address]- 0450 Jun, [facility] [place] [facility] [address] [id number] [address]- 6346 Jun, [facility] [place] [facility] [address] [id number] [place] [address]- 3418 Jun, [facility] [place] [facility] [address] [id number] [place] [address]- 2829 Jun, [facility] [place] [facility] [address] [id number] [place] [address]- 0556 10 Jun, 2012 [facility] [place] [facility] [address] [id number] [place] [address]- 9743 10 Jun, 2012 [facility] [place] [facility] [id number] [place] [address], [place] [address]- 1437 26 May, 2012 [facility] [place] [facility] [address] [id number] [place] [address]- 3498 24 May, 2012 [facility] [place] [facility] [address] [facility] [id number] [place] [address]- 8736 18 May, 2012 [facility] [place] [facility] [address] [id number] [place] [address]- 5571 30 Apr, 2012 [facility] [place] [facility] [address] [facility] [id number] [place] [address]- 2100 Apr, [facility] [place] [facility] [address] [facility] [id number] [place] [address]- 7154 Apr, [facility] [place] [facility] [address] [id number] [place] [address]- 9285 Apr, [facility] [place] [facility] [address] [id number] [place] [address]- 7728 Apr, [facility] [place] [facility] [address] [id number] [place] [address]- 4682 Apr, [facility] [place] [facility] [address] [facility] [id number] [place] [address]- 7091 Mar, [facility] [place] [facility] [address] [facility] [id number] [place] [address]- 4290 Mar, [facility] [place] [facility] [address] [id number] [place] [address] 2540 Mar, [facility] [place] [facility] [address] [id number] [place] [address]- 6054 Mar, [facility] [place] [facility] [address] [id number] [place] [address]- 9076 Feb, [facility] [place] [facility] [address] [id number] [place] [address]- 9302 Feb, [facility] [place] [facility] [address] [id number] [place] [address]- 3526 Feb, [facility] [place] [facility] [address] [id number] [place] [address]- 4520 Feb, [facility] [place] [facility] [address] [id number] [place] [address]- 6190 Feb, [facility] [place] [facility] [address] [id number] [place] [address]- 2182 January, [facility] [place] [facility] [address] [id number] [place] [address]- 8375 January, [facility] [place] [facility] [address] [id number] [place] [address]- 3251 January, [facility] [place] [facility] [address] [id number] [place] [address]- 5217 January, [facility] [place] [facility] [address] [id number] [place] [address]- 2283 January, [facility] [place] [facility] [address] [id number] [place] [address]- 7428 January, [facility] [place] [facility] [address] [id number] [place] [address]- 6516 Dec, [facility] [place] [facility] [address] [id number] [place] [address]- 0836 Dec, [facility] [place] [facility] [address] [id number] [place] [address]- 3976 17 Dec, 2011 [facility] [place] [facility] [address] [id number] [place] [address]- 5909 09 Dec, 2011 [facility] [place] [facility] [address] [id number] [place] [address]- 7336 06 Dec, 2011 [facility] [place] [facility] [address] [id number] [place] [address]- 4915 27 Nov, 2011 [facility] [place] [facility] [address] [id number] [place] [address]- 6652 14 Nov, 2011 [facility] [place] [facility] [address] [id number] [place] [address]- 0712 Nov, [facility] [place] [facility] [address] [id number] [place] 4392 07 Nov, 2011 [facility] [place] [facility] [address] [id number] [place] [address]- 4612 29 Oct, 2011 [facility] [place] [facility] [address] [id number] [place] [address]- 4448 28 Oct, 2011 [facility] [place] [facility] [address] [id number] [place] [address]- 6882 24 Oct, 2011 [facility] [place] [facility] [address] [id number] [place] [address]- 1176 Oct, [facility] [place] [facility] [address] [id number] [place] [address]- 7621 08 Oct, 2011 [facility] [place] [facility] [address] [id number] [place] [address]- 4409 Sep, [facility] [place] [facility] [address] [id number] [place] [address]- 2805 30 Sep, 2011 [facility] [place] [facility] [address] [id number] [place] [address]- 3241 Sep, [facility] [place] [facility] [address] [id number] [place] [address]- 7672 Sep, [facility] [place] [facility] [address] [id number] [place] [address]- 5360 Sep, [facility] [place] [facility] [address] [id number] [place] [address]- 2308 Sep, [facility] [place] [facility] [address] [id number] [place] [address]- 2226 Aug, [facility] [place] [facility] [address] [id number] [place] [address]- 4966 Aug, [facility] [place] [facility] [address] [id number] [place] [address]- 6239 Aug, [facility] [place] [facility] [address] [id number] [place] [address]- 8086 Jul, [facility] [place] [facility] [address] [id number] [place] [address]- 6702 Jul, [facility] [place] [facility] [address] [id number] [place] [address] Jul, [facility] [place] [facility] [address] [id number] [place] [address] Jul, [facility] [place] [facility] [address] [id number] [place] [address] Jun, [facility] [place] [facility] [address] [id number] [place] [address] Jun, [facility] [place] [facility] [address] [id number] [place] [address] Jun, [facility] [place] [facility] [address] [id number] [place] [address] Jun, [facility] [place] [facility] [address] [id number] [place] [address] Jun, [facility] [place] [facility] [address] [id number] [place] [address] Jun, [facility] [place] [facility] [address] [id number] [place] [address] Mar, [facility] [address] [id number] [place] [address] 18 Dec, 2010 [facility] [place] [facility] [address] [id number] [place] [address] 11 Dec, 2010 [facility] [place] [facility] [address] [id number] [place] [address] 18 Nov, 2010 [facility] [place] [facility] [address] [id number] [place] [address]46 16 Nov, 2010 [facility] [place] [facility] [address] [id number] [place] [address] 10 Sep, 2010 [facility] [place] [facility] [address] [id number] [place] [address] 31 Aug, 2010 [facility] [place] [facility] [address] [id number] [place] [address] 29 Aug, 2010 [facility] [place] [facility] [address] [id number] [place] [address]- [address] 29 Aug, 2010 [facility] [place] [facility] [address] [id number] [place] [address] 29 Aug, 2010 [facility] [place] [facility] [address] [id number] [place] [address] 27 Aug, 2010 [facility] [place] [facility] [address] [id number] [place] [address] 14 Aug, 2010 [facility] [place] [facility] [address] [id number] [place] [address] 2541 08 Aug, 2010 [facility] [place] [facility] [address] [id number] [place] [address] 2546 08 Aug, 2010 [facility] [place] [facility] [address] [id number] [place] [address]46 07 Aug, 2010 [facility] [place] [facility] [address] [id number] [place] [address] 06 Aug, 2010 [facility] [place] [facility] [address] [id number] [place] [address] Aug, [facility] [place] [facility] [address] [id number] [place] [address] Aug, [facility] [place] [facility] [address] [id number] [place] [address] Jul, [facility] [place] [facility] [address] [id number] [place] [address] Jul, [facility] [place] [facility] [address] [id number] [place] [address] Jul, [facility] [place] [facility] [address] [id number] [place] [address], [place] [address]- [address] Jul, [facility] [place] [facility] [address] [id number] [place] [address] Jul, [facility] [place] [facility] [address] [id number] [address] Jul, [facility] [place] [facility] [address] [id number] [place] [address] Jun, [facility] [place] [facility] [address] [id number] [place] [address] Jun, [facility] [place] [facility] [address] [facility] [id number] [place] [address] Jun, [facility] [place] [facility] [address] [id number] [address] Jun, [facility] [place] [facility] [address] [id number] [place] [address] Apr, [facility] [place] [facility] [address] [id number] [address] Mar, [facility] [place] [facility] [address] [id number] [place] [address] Feb, [facility] [place] [facility] [address] [id number] [address] January, [facility] [place] [facility] [address] [id number] [place] [address] 15 Dec, 2009 [facility] [place] [facility] [address] [id number] [place] [address] Nov, [facility] [place] [facility] [address] [id number] [place] [address] 2546 31 Aug, 2009 [facility] [place] [facility] [address] [id number] [place] [address] 2546 Aug, [facility] [place] [facility] [address] [id number] [place] [address] 2549 Aug, [facility] [place] [facility] [address] [id number] [place] [address] Jul, [facility] [place] [facility] [address] [facility] [id number] [place] [address] Jul, [facility] [place] [facility] [address] [id number] [place] [address]- 1415 Jul, [facility] [place] [facility] [address] [id number] [place] [address]- 45[address] 30 Jun, 2009 [facility] [place] [facility] [address] [id number] [place] [address]- [address] 29 Jun, 2009 [facility] [place] [facility] [address] [facility] [id number] [place] [address] 2546 Jun, [facility] [place] [facility] [address] [id number] [place] [address] Jun, [facility] [place] [facility] [address] [id number] [place] [address] 2546 Jun, [facility] [place] [facility] [address] [id number] [place] [address] 2546 Jun, [facility] [place] [facility] [address] [facility] [id number] [place] [address] 2546 Apr, [facility] [place] [facility] [address] [id number] [place] [address] Apr, [facility] [address] [facility] [id number] [place] [address] Feb, [facility] [address] [facility] [id number] [place] [address] January, [facility] [address] [facility] [id number] [place] [address] Dec, IMMUNIZATIONS No Known Immunizations SOCIAL HISTORY Never Assessed REASON FOR VISIT ambien refill PLAN OF CARE VITAL SIGNS MEDICATIONS Medication Instructions Dosage Frequency Start Date End Date Duration Status Ambien 10 mg Orally at bedtime as needed for sleep 1 tablet 30 Active RESULTS No Results PROCEDURES No Known [...] tunnel release (Left) 2000 Surgical History EGD (Formerly [facility]) 2009 Surgical History colonoscopy 2009 (Formerly [facility]), 2013 ([place]) Surgical History heart cath: CAD w/ PTCA [...] History inability to urinate 09/16/15 Hospitalization History [facility] early Hospitalization History hyperkalemia 10/2017 Hospitalization History fluid in lung
--- OUTSIDE RECORDS SUMMARY | 2018-08-08 13:45 | XMS REPORT ---
Author Author ASHLEY GLEZ [facility] Address [address] [place] [address] Care Team Providers Care Riveter Name Role Phone [place] ASHLEY Unavailable PROBLEMS Type Condition ICD9-CM Code PYK30-EM Code Onset Dates Condition Status SNOMED Code Problem Chronic lymphocytic leukemia C91.10 Active 02410529 Problem Lymphocytosis D72.820 Active 51164357 Problem Eye exam abnormal R93.8 Active 686836665 Problem Eustachian tube dysfunction, unspecified laterality H69.80 Active 08401140 Problem Essential hypertension I10 Active 59927848 Problem Dysuria R30.0 Active 56788443 Problem Diabetic polyneuropathy associated with type 2 diabetes mellitus E11.42 Active 73040590 Problem Cough R05 Active 76447623 Problem Polyneuropathy associated with underlying disease G63 Active 034529350 Problem Retinal edema H35.81 Active 7531573 Problem Bilateral primary osteoarthritis of knee M17.0 Active 261089633 Problem Primary osteoarthritis of right knee M17.11 Active 051438056210872 Problem Pure hypercholesterolemia E78.00 Active 165578341 Problem DM neuro manif type II E11.49 Active 09495960 Problem Benign prostatic hyperplasia with lower urinary tract symptoms, unspecified morphology N40.1 Active 208448764 Problem Hypokalemia E87.6 Active 09063543 Problem 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 Active 891257198 Problem Anemia of chronic illness D63.8 Active 869341846 Problem Bipolar disorder, in partial remission, most recent episode depressed F31.75 Active 59797613 Problem Falling R29.6 Active 805172656 Problem Leukocytosis D72.829 Active 906473795 Problem Reactive airway disease J45.909 Active 128442593048 Problem Diabetes E11.9 Active 74195964 Problem Chronic pain G89.29 Active 33393052 Problem Anxiety F41.9 Active 59469707 Problem Morbid obesity E66.01 Active 583511495 Problem Bipolar I disorder, most recent episode (or current) mixed, moderate F31.62 Active 17479032 Problem Insomnia, unspecified type G47.00 Active 124207706 ALLERGIES No Information ENCOUNTERS Encounter Location Date Diagnosis [place] [address] [address] Jun, [facility] [address] [address]- [address] Jun, [facility] [address] [address]- [address] Jun, [facility] [address] [address]- [address] May, Chronic pain G89.29 [place] [address] 25[address]- 1323 Apr, [place] [address] 46[address]- 1285 Apr, Chronic pain G89.29 [facility] [address] [address]- [address] Apr, Primary osteoarthritis of right knee M17.11 [place] [address] [address]71- [address] Mar, [place] [address] [place] [id number] [place] [address] 43782- 9231 Mar, BMI 50.0-59.9, adult Z68.43 and Bipolar disorder, in partial remission, most recent episode depressed F31.75 [place] [address] [place] [id number] [place] [address] 95182- 2563 Mar, Diabetes E11.9 ; Pure hypercholesterolemia E78.00 ; Essential hypertension I10 ; Nausea with vomiting, unspecified R11.2 and Headache, unspecified headache type R51 [place] [address] [place] [id number] [place] [address] 62745- 3770 Mar, Bipolar I disorder, most recent episode (or current) mixed, moderate F31.62 [place] [address] [address] Mar, Bipolar I disorder, most recent episode (or current) mixed, moderate F31.62 [facility] [address] [place] [address] 42301- 9933 Mar, Chronic pain G89.29 [facility] [address] [place] [address] 28604- 3448 Mar, Bipolar I disorder, most recent episode (or current) mixed, moderate F31.62 [facility] [address] [place] [address] 35460- 3437 Feb, Bipolar I disorder, most recent episode (or current) mixed, moderate F31.62 [facility] [address] [place] [address] 20827- 5363 Feb, Chronic pain G89.29 [facility] [address] [place] [id number] [place] [address] 84671- 8546 Feb, Decubitus ulcer of right foot, stage 3 L89.893 and BMI 50.0- 59.9, adult Z68.43 [place] [address] [place] [address] 09569- 7735 Feb, Bipolar I disorder, most recent episode (or current) mixed, moderate F31.62 [facility] [address] [place] [address] 95[address] Feb, [facility] [id number] [place] [address] 74855- 1372 January, [facility] [address] [place] [id number] [place] [address] 85456- 5375 January, Chronic pain G89.29 [facility] [address], [place] [address] 0951 January, Bipolar I disorder, most recent episode (or current) mixed, moderate F31.62 [facility] [address] [place] [id number] [place] [address] 08705- 1585 January, Bipolar I disorder, most recent episode (or current) mixed, moderate F31.62 [place] [address] [place] [id number] [place] [address] 27179- 6458 Dec, Bipolar I disorder, most recent episode (or current) mixed, moderate F31.62 and BMI 50.0-59.9, adult Z68.43 [place] [address] 85655- 2486 Dec, Bipolar I disorder, most recent episode (or current) mixed, moderate F31.62 [place] [address] 61980- 9309 Dec, Chronic pain G89.29 [place] [address] 04419- 7576 Dec, DM neuro manif type II E11.49 ; Right flank pain R10.9 ; coil winder 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 Z79.891 ; Encounter for medication monitoring Z51.81 and BMI 50.0-59.9, adult Z68.43 [place] [address] 76520- 3702 Dec, Bipolar I disorder, most recent episode (or current) mixed, moderate F31.62 [place] [address] [place] [id number] [place] [address] 62185- 8758 Nov, Bipolar I disorder, most recent episode (or current) mixed, moderate F31.62 [place] [address] [place] [id number] [place] [address] 17267- 9753 Nov, Chronic pain G89.29 [place] [address] 71218- 6176 Nov, Bipolar I disorder, most recent episode (or current) mixed, moderate F31.62 [place] [address] [place] [id number] [place] [address] 03412- 7438 Nov, Hypokalemia E87.6 [place] [address] [place] [address] 02476- 6686 Nov, Bipolar I disorder, most recent episode (or current) mixed, moderate F31.62 [place] [address] [place] [id number] [place] [address] 61663- 7360 Oct, Chronic pain G89.29 [place] [address] 94204- 3224 Oct, BMI 50.0-59.9, adult Z68.43 and Bipolar I disorder, most recent episode (or current) mixed, moderate F31.62 [place] [address] 57978- 6421 Oct, Bipolar I disorder, most recent episode (or current) mixed, moderate F31.62 [place] [address] [place] [id number] [place] [address] 67872- 6955 Oct, [place] [address] [place] [id number] [place] [address] 74672- 2912 Oct, Hypokalemia E87.6 [place] [address] [place] [id number] [place] [address] 91236- 3377 Oct, DM neuro manif type II E11.49 [place] [address] [place] [id number] [place] [address] 17307- 1925 Oct, Bipolar I disorder, most recent episode (or current) mixed, moderate F31.62 [place] [address] [place] [id number] [place] [address] 94414- 0929 Oct, Bipolar I disorder, most recent episode (or current) mixed, moderate F31.62 [place] [address] [place] [id number] [place] [address] 88654- 3015 14 Oct, 2017 Hyperkalemia E87.5 ; Falling R29.6 ; BMI 50.0-59.9, adult Z68.43 and Acute left ankle pain M25.572 [place] [address] [place] [address] 55757- 8362 08 Oct, 2017 DM neuro manif type II E11.49 [place] [id number] [place] [address] 13750- 7161 Oct, [place] [address] [place] [id number] [place] [address] 62453- 3452 Sep, Chronic pain G89.29 [place] [address] 68334- 4255 Sep, [address] [address]- 9711 Sep, Bilateral primary osteoarthritis of knee M17.0 [place] [id number] [place] [address] 44539- 2873 Sep, Generalized edema R60.[address] 42501- 8195 Sep, Bipolar I disorder, most recent episode (or current) mixed, moderate F31.62 [place] [id number] [place] [address] 26077- 1634 15 Sep, 2017 Hypoxia R09.02 ; Other hypervolemia E87.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 ; Anemia of chronic illness D63.8 and BMI 50.0- 59.9, adult Z68.43 [address] [place] [address] 08888- 6918 Sep, [place] [id number] [place] [address] 48786- 9990 Sep, Bipolar I disorder, most recent episode (or current) mixed, moderate F31.62 [place] [id number] [place] [address] 06774- 3997 Aug, Chronic pain G89.29 [place] [address], [place] [address]- 6766 Aug, Generalized edema R60.1 [facility] [address] [place] [id number] [place] [address] 10387- 7800 Aug, [facility] [address], [place] [address]- 5331 Aug, [facility] [address] [place] [id number] [place] [address] 17792- 4153 Aug, Bipolar I disorder, most recent episode (or current) mixed, moderate F31.62 [place] [address] [place] [id number] [place] [address] 390892- 7726 Aug, Bipolar I disorder, most recent episode (or current) mixed, moderate F31.62 [place] [address] [place] [address] 69352- 9117 Aug, Chronic pain G89.29 [facility] [address] [place] [address] 52952- 1606 Jul, Bipolar I disorder, most recent episode (or current) mixed, moderate F31.62 [place] [address] [place] [address] 02948- 6922 Jul, Bipolar I disorder, most recent episode (or current) mixed, moderate F31.62 and BMI 60.0-69.9, adult Z68.44 [place] [address] [place] [address] 13171- 4719 Jul, Bipolar I disorder, most recent episode (or current) mixed, moderate F31.62 [place] [address] [place] [address] 23617- 6966 Jul, Chronic pain G89.29 [facility] [address], [place] [address]- 2241 02 Jul, 2017 Bipolar I disorder, most recent episode (or current) mixed, moderate F31.62 [place] [address] [place] [id number] [place] [address]- 0760 18 Jun, 2017 Polyneuropathy associated with underlying disease G63 and Diabetes E11.9 [facility] [address] [place] [id number] [place] [address] 75972- 3071 16 Jun, 2017 Bipolar I disorder, most recent episode (or current) mixed, moderate F31.62 [facility] [address] [place] [id number] [place] [address] 38491- 7675 09 Jun, 2017 Chronic pain G89.29 [facility] [address] [place] [id number] [place] [address] 47914- 1589 27 May, 2017 Bipolar I disorder, most recent episode (or current) mixed, moderate F31.62 [place] [address] [place] [id number] [place] [address] 24410- 2595 21 May, 2017 Bipolar I disorder, most recent episode (or current) mixed, moderate F31.62 [place] [address] [place] [id number] [place] [address] 60602- 7972 20 May, 2017 Diabetic polyneuropathy associated with type 2 diabetes mellitus E11.42 [facility] [address] [place] [id number] [place] [address] 97133- 3420 18 May, 2017 Bipolar I disorder, most recent episode (or current) mixed, moderate F31.62 [place] [address], [place] [address]- 5631 13 May, 2017 Bipolar I disorder, most recent episode (or current) mixed, moderate F31.62 [facility] [address] [place] [address] 08389- 1804 May, Chronic pain G89.29 [facility] [address] [place] [id number] [place] [address] 89493- 0250 Apr, Bipolar I disorder, most recent episode (or current) mixed, moderate F31.62 [place] [address] [place] [address] 49292- 4533 Apr, [facility] [address] [place] [address] [place] [address]- 4126 Apr, Chronic pain G89.29 and DM neuro manif type II E11.49 [facility] [address] [place] [id number] [place] [address] 85214- 9526 Apr, [facility] [address] [place] [id number] [place] [address] 79569- 6502 Apr, Bipolar I disorder, most recent episode (or current) mixed, moderate F31.62 [facility] [address] [place] [id number] [place] [address] 18949- 0874 Apr, Chronic pain G89.29 [facility] [address] [place] [id number] [place] [address] 77597- 7743 Apr, Iliotibial band syndrome, left M76.32 [facility] [address] [place] [id number] [place] [address] 34309- 0024 Apr, Bipolar I disorder, most recent episode (or current) mixed, moderate F31.62 [facility] [address] [place] [address] 66508- 6758 Mar, Bipolar I disorder, most recent episode (or current) mixed, moderate F31.62 [facility] [address] [place] [address] 86626- 1502 Mar, Bipolar I disorder, most recent episode (or current) mixed, moderate F31.62 [facility] [address] [place] [address] 37471- 4205 Mar, [facility] [address] [place] [id number] [place] [address] 26775- 3460 Mar, Bipolar I disorder, most recent episode (or current) mixed, moderate F31.62 [facility] [address] [place] [address] 82158- 2863 Mar, Chronic pain G89.29 [facility] [address] [place] [address] 08055- 1688 Mar, Bipolar I disorder, most recent episode (or current) mixed, moderate F31.62 [facility] [address] [place] [address] 99675- 9129 Mar, Bipolar I disorder, most recent episode (or current) mixed, moderate F31.62 [facility] [address] [place] [address] 18045- 9679 Mar, Acute pain of left knee M25.562 ; Left hip pain M25.552 ; Generalized edema R60.1 and Tongue swelling R22.0 [facility] [address] [place] [id number] [place] [address] 37566- 2819 Mar, [facility] [address] [place] [id number] [place] [address] 90071- 4680 Feb, Chronic pain G89.29 [facility] [address] [place] [id number] [place] [address] 12166- 6906 Feb, Diabetes E11.9 [facility] [address] [place] [id number] [place] [address] 26790- 0003 January, Chronic pain G89.29 [facility] [address] [place] [id number] [place] [address] 88678- 4785 January, [facility] [address] [place] [id number] [place] [address] 76084- 9707 January, Bipolar I disorder, most recent episode (or current) mixed, moderate F31.62 [facility] [address] [place] [address] 05151- 4856 Dec, Bipolar I disorder, most recent episode (or current) mixed, moderate F31.62 [facility] [address] [place] [id number] [place] [address] 21495- 4540 Dec, Chronic pain G89.29 [facility] [address] [place] [id number] [place] [address] 51905- 0771 Dec, Bipolar I disorder, most recent episode (or current) mixed, moderate F31.62 [place] [address], [place] [address]- 3845 Dec, Diabetes E11.9 ; Essential hypertension I10 ; Chronic pain G89.29 and Morbid obesity E66.01 [facility] [address] [place] [id number] [address]- 4872 Dec, [facility] [address] [place] [id number] [place] [address] 49412- 4046 Dec, Bipolar I disorder, most recent episode (or current) mixed, moderate F31.62 [facility] [address] [place] [id number] [place] [address] 94702- 7797 Dec, Bipolar I disorder, most recent episode (or current) mixed, moderate F31.62 [place] [address] [place] [id number] [place] [address] 88621- 5822 Nov, Chronic pain G89.29 [facility] [address] [place] [id number] [place] [address] 58098- 7382 Nov, Bipolar I disorder, most recent episode (or current) mixed, moderate F31.62 [place] [address] [place] [id number] [place] [address] 04748- 2001 Nov, [place] [address] [place] [id number] [place] [address] 86292- 7660 Nov, Bipolar I disorder, most recent episode (or current) mixed, moderate F31.62 [facility] [address] [place] [id number] [place] [address] 12757- 9920 Nov, Bipolar I disorder, most recent episode (or current) mixed, moderate F31.62 [place] [address] [place] [id number] [place] [address] 01637- 8232 Nov, [facility] [address] [place] [id number] [place] [address] 12881- 6337 Nov, [facility] [address] [place] [id number] [place] [address] 31690- 9243 Nov, [facility] [address], [place] [address]- 4661 Oct, Chronic pain G89.29 [facility] [address] [place] [id number] [place] [address] 56617- 9056 Oct, Bipolar I disorder, most recent episode (or current) mixed, moderate F31.62 [facility] [address] [place] [id number] [place] [address] 05538- 5817 Oct, [facility] [address] [place] [id number] [place] [address] 20706- 5885 Oct, Chronic pain G89.29 ; Diabetes E11.9 ; Anxiety F41.9 and 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 [facility] [address], [place] [address]- 0068 Oct, [facility] [address] [place] [id number] [place] [address] 81778- 9593 Oct, Diabetes E11.9 [facility] [address] [place] [id number] [place] [address] 04433- 8115 Oct, Bipolar I disorder, most recent episode (or current) mixed, moderate F31.62 [facility] [address], [place] [address]- 4670 Sep, Chronic pain G89.29 [facility] [address] [place] [id number] [place] [address]- 1726 Sep, Chronic pain G89.29 [facility] [address], [place] [address]- 7198 Aug, Chronic pain G89.29 [facility] [address] [place] [id number] [place] [address] 58326- 9251 Jul, [facility] [address], [place] [address]- 4015 Jul, Diabetes E11.9 [facility] [address] [place] [id number] [place] [address] 53921- 1807 Jul, Chronic pain G89.29 [place] [address] [place] [id number] [place] [address] 32269- 6292 Jul, Bipolar I disorder, most recent episode (or current) mixed, moderate F31.62 [place] [address] [place] [id number] [place] [address] 61850- 8377 Jun, Bipolar I disorder, most recent episode (or current) mixed, moderate F31.62 [place] [address] [place] [id number] [place] [address] 86769- 2866 Jun, [place] [address] [place] [id number] [place] [address] 41980- 7871 Jun, Bipolar I disorder, most recent episode (or current) mixed, moderate F31.62 [place] [address] [place] [id number] [place] [address] 22537- 7129 30 May, 2016 Insomnia, unspecified type G47.00 [place] [address] [place] [id number] [place] [address] 16933- 1283 May, Bipolar I disorder, most recent episode (or current) mixed, moderate F31.62 [place] [address] [place] [id number] [place] [address] 33324- 5323 14 May, 2016 [place] [address] [place] [id number] [place] [address] 18248- 9464 08 May, 2016 Bipolar I disorder, most recent episode (or current) mixed, moderate F31.62 [place] [address] [place] [id number] [place] [address] 20854- 0040 06 May, 2016 Diabetes E11.9 and Essential hypertension I10 [place] [address] [place] [id number] [place] [address] 52757- 5779 Apr, Chronic pain G89.29 [place] [address] [place] [id number] [place] [address] 26702- 8022 Apr, Bipolar I disorder, most recent episode (or current) mixed, moderate F31.62 [facility] [address], [place] [address]- 5930 Apr, [facility] [address] [place] [id number] [place] [address] 92037- 1264 Apr, [facility] [address] [place] [id number] [place] [address] 93437- 8107 Mar, Chronic pain G89.29 ; Headache, unspecified headache type R51 ; Neuropathy G62.9 ; Pain of right hip joint M25.551 and Essential hypertension I10 [place] [address] [place] [address] [id number] [place] [address] 59526- 0420 Mar, Chronic pain G89.29 [place] [address] [place] [address] [id number] [place] [address] 96410- 8016 Mar, Bipolar I disorder, most recent episode (or current) mixed, moderate F31.62 [place] [address] [place] [address] [id number] [place] [address] 12397- 9480 Feb, Bipolar I disorder, most recent episode (or current) mixed, moderate F31.62 and Insomnia, unspecified type G47.00 [place] [address] [place] [address] 87479- 2862 Feb, Chronic pain G89.29 [place] [address] [place] [address] 03593- 8706 Feb, Bipolar I disorder, most recent episode (or current) mixed, moderate F31.62 [place] [address] [place] [address] 00644- 3011 January, Bipolar I disorder, most recent episode (or current) mixed, moderate F31.62 [place] [address] [place] [address] [id number] [place] [address] 08252- 1655 January, Chronic pain G89.29 [place] [address] [place] [address] [id number] [place] [address] 27976- 6727 January, Chronic pain G89.29 and Essential hypertension I10 [facility] [address] [place] [address] [id number] [place] [address] 19820- 9797 January, Bipolar I disorder, most recent episode (or current) mixed, moderate F31.62 [facility] [id number] [place] [address] [phone]- [phone] Dec, [facility] [address] [address]- 0000 Dec, [facility] [address] [address]- 295[address] Dec, [facility] [address] [address]- [address] Dec, [facility] [id number] [place] [address] 72802- 1724 Nov, Reactive airway disease J45.909 [facility] [id number] [place] [address] [phone]- [phone] Nov, [facility] [id number] [place] [address] [phone]- [phone] Nov, [facility] [id number] [place] [address] 33954- 8329 Nov, [facility] [id number] [place] [address] 68972- 7016 Nov, [facility] [id number] [place] [address] 00469- 4289 Nov, Onychomycosis B35.1 ; [place] M20.40 ; [place] or callus L84 and DM neuro manif type II E11.49 [facility] [id number] [place] [address] 48721- 9146 Nov, Chronic pain G89.29 ; Leukocytosis D72.829 and Diabetes E11.9 [facility] [id number] [place] [address] 64532- 7865 Nov, [facility] [id number] [place] [address] 73550- 7770 Oct, Bronchitis J40 [facility] [id number] [place] [address] 35498- 3696 Oct, [facility] [id number] [place] [address] 31686- 2224 Oct, [facility] [id number] [place] [address] 05603- 8906 Oct, Mastoiditis, unspecified laterality H70.90 and Type 2 diabetes mellitus with complication E11.8 [place] [facility] [id number] [place] [address] 56962- 6073 Sep, [place] [facility] [id number] [place] [address] 33178- 5213 Sep, Dysuria R30.0 ; Cough R05 ; Benign prostatic hyperplasia with lower urinary tract symptoms, unspecified morphology N40.1 ; Hypokalemia E87.6 and Eustachian tube dysfunction, unspecified laterality H69.80 [place] [id number] [place] [address] 98485- 5783 Sep, Moderate mixed bipolar I disorder F31.62 [place] [id number] [place] [address] 76975- 2820 Sep, Hypokalemia E87.6 [place] [facility] [id number] [place] [address] 54639- 0732 Sep, [facility] [id number] [place] [address] 38905- 3250 Sep, Upper respiratory tract infection, unspecified type J06.9 [facility] [id number] [place] [address] 80062- 8437 Aug, [place] [facility] [id number] [place] [address] 68865- 5696 Aug, Dysuria R30.0 [facility] [address] [address]- 8600 Aug, [facility] [address], [place] [address]- 1064 Jul, [facility] [address] [address]- 1488 Jul, [facility] [id number] [place] [address] 83349- 1535 Jul, [facility] [address], [place] [address]- 4606 Jul, [facility] [id number] [place] [address] 39532- 5713 Jun, [facility] [address], [place] [address]- 4689 Jun, [facility] [id number] [place] [address] 69544- 9149 Jun, [facility] [address], [place] [address]- 1259 29 May, 2015 [facility] [address], [place] [address]- 0105 May, Bipolar I disorder, most recent episode (or current) mixed, moderate 296.62 [facility] [address] [address]- 8816 16 May, 2015 [facility] [address], [place] [address]- 2605 May, Bipolar I disorder, most recent episode (or current) mixed, moderate 296.62 and Major depressive disorder, recurrent episode, severe, specified as with psychotic behavior 296.34 [facility] [id number] [address]- 4445 02 May, 2015 Bipolar I disorder, most recent episode (or current) mixed, moderate 296.62 [facility] [id number] [address]- 9926 May, [facility] [address], [place] [address]- 6442 Apr, [facility] [address], [place] [address]- 8674 Apr, [facility] [address], [place] [address]- 2359 Apr, Unspecified disorder of kidney and ureter 593.9 and Diabetes mellitus type 2, uncontrolled 250.02 [facility] [address], [place] [address]- 5660 Apr, [facility] [address], [place] [address]- 7262 Apr, [facility] [address], [place] [address]- 9790 Apr, [facility] [address], [place] [address]- 1737 Apr, [facility] [address], [place] [address]- 8192 Apr, Diabetes mellitus type II, uncontrolled 250.02 [facility] [address], [place] [address]- 3508 Apr, [facility] [address], [place] [address]- 5420 Mar, [facility] [id number], [place] [address]- 1329 Mar, [facility] [address], [place] [address]- 0847 Mar, [facility] [address], [place] [address]- 9960 Mar, Major depressive disorder, recurrent episode, severe, specified as with psychotic behavior 296.34 and Bipolar I disorder, most recent episode (or current) mixed, moderate 296.62 [facility] [address], [place] [address]- 3787 Mar, Diabetes 250.00 ; Anuria 788.5 ; Nausea and vomiting 787.01 and Diarrhea 787.91 [facility] [address], [place] [address]- 3265 Mar, Diabetes 250.00 [facility] [id number] [place] [address] 66646- 9490 Mar, [facility] [id number] [place] [address] 21984- 7923 Mar, Diabetes 250.00 [facility] [id number] [place] [address] 12966- 4525 Mar, [facility] [id number] [place] [address] 16374- 7598 Mar, [facility] [id number] [place] [address] 84196- 7616 Mar, [facility] [id number] [place] [address] 29818- 0112 Mar, [facility] [id number] [place] [address] 91452- 4851 Mar, Bipolar I disorder, most recent episode (or current) mixed, moderate 296.62 and Major depressive disorder, recurrent episode, severe, specified as with psychotic behavior 296.34 [facility] [id number] [place] [address] 55524- 6260 Mar, Magnesium deficiency 275.2 ; Hypokalemia 276.8 ; Nausea & vomiting 787.01 and Diabetes mellitus type 2, uncontrolled 250.02 [facility] [id number] [place] [address] 01523- 9147 Feb, [facility] [id number] [place] [address] 10639- 4470 Feb, Bipolar I disorder, most recent episode (or current) mixed, moderate 296.62 [place] [facility] [id number] [place] [address] 27986- 2344 Feb, Nausea and vomiting 787.01 ; Left elbow pain 719.42 ; Anuria 788.5 and Diabetes 250.00 [place] [facility] [id number] [place] [address] 39350- 7663 Feb, [place] [address] 10813- 7307 Feb, Hypopotassemia 276.8 and Hypokalemia 276.8 [place] [id number] [place] [address] 03683- 2315 Feb, Hypopotassemia 276.8 and Hypokalemia 276.8 [place] [id number] [place] [address] 92847- 1583 Feb, Seborrheic keratoses 702.19 [place] [id number] [place] [address] 54646- 2531 Feb, Hypopotassemia 276.8 and Low magnesium levels 275.2 [id number] [place] [address] 52856- 8148 January, [facility] [facility] [id number] [place] [address] 44040- 0094 January, [place] [facility] [id number] [place] [address] 07117- 4580 January, [place] [facility] [id number] [place] [address] 08736- 6929 January, Scalp lesion 709.[address] 42441- 7074 January, [facility] [facility] [id number] [place] [address] 73202- 6864 Dec, Tear of medial cartilage or meniscus of knee, current 836.0 and 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 [place] [address] [id number] [place] [address]- 0466 29 Dec, 2014 [facility] [place] [facility] [address] [id number] [place] [address]- 2537 29 Dec, 2014 [facility] [place] [facility] [address] [id number] [place] [address]- 1861 28 Dec, 2014 Squamous cell carcinoma, 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 [facility] [place] [facility] [address] [id number] [place] [address]- 7294 14 Dec, 2014 [facility] [place] [facility] [address] [id number] [place] [address]- 2701 Dec, [facility] [place] [facility] [address] [id number] [place] [address]- 9486 Nov, [facility] [place] [facility] [address] [id number] [place] [address]- 5217 Nov, [facility] [place] [facility] [address] [facility] [id number] [place] [address]- 5814 Nov, [facility] [place] [facility] [address] [id number] [place] [address]- 7172 Nov, [facility] [place] [facility] [address] [facility] [id number] [place] [address]- 3938 Nov, [facility] [place] [facility] [address] [id number] [place] [address]- 9690 Nov, [facility] [place] [facility] [address] [id number] [place] [address]- 7320 Nov, [facility] [place] [facility] [address] [id number] [place] [address]- 8469 Nov, [facility] [place] [facility] [address] [id number] [place] 0349 Nov, [facility] [place] [facility] [address] [facility] [id number] [place] 0452 Nov, [facility] [place] [facility] [address] [id number] [place] [address]- 4147 Nov, [facility] [place] [facility] [address] [id number] [place] [address]- 6375 Nov, [facility] [place] [facility] [address] [id number] [place] [address]- 8626 Oct, 2014 [facility] [place] [facility] [address] [id number] [place] [address]- 8925 Oct, 2014 [facility] [place] [facility] [address] [id number] [place] [address]- 2450 Oct, 2014 [facility] [place] [facility] [address] [id number] [place] [address]- 5375 Oct, 2014 [facility] [place] [facility] [address] [id number] [place] [address]- 3894 Oct, 2014 [facility] [place] [facility] [address] [id number] [place] [address]- 3782 Oct, 2014 [facility] [place] [facility] [address] [id number] [place] [address]- 9714 Oct, [facility] [place] [facility] [address] [id number] [place] [address]- 7518 Oct, [facility] [place] [facility] [address] [facility] [id number] [place] [address]- 9149 Oct, [facility] [place] [facility] [address] [id number] [place] [address]- 2458 Sep, [facility] [place] [facility] [address] [id number] [place] [address]- 0594 Sep, [facility] [place] [facility] [address] [id number] [place] [address]- 3661 Sep, [facility] [place] [facility] [address] [id number] [place] [address]- 4854 Sep, [facility] [place] [facility] [address] [facility] [id number] [place] [address]- 5329 Sep, [facility] [place] [facility] [address] [id number] [place] [address]- 0633 Sep, [facility] [place] [facility] [address] [id number] [place] [address]- 6939 Sep, [facility] [place] [facility] [address] [id number] [place] [address]- 8080 Sep, [facility] [place] [facility] [address] [id number] [place] [address]- 5539 Sep, [facility] [place] [facility] [address] [id number] [place] [address]- 9708 Sep, [facility] [place] [facility] [address] [id number] [place] [address]- 8438 Sep, [facility] [place] [facility] [address] [id number] [place] [address]- 0296 Sep, [facility] [place] [facility] [address] [id number] [place] [address]- 2574 Sep, [facility] [place] [facility] [address] [id number] [place] [address]- 4504 Sep, [facility] [place] [facility] [address] [id number] [place] [address]- 2864 Sep, [facility] [place] [facility] [address] [id number] [place] [address]- 8617 Sep, [facility] [place] [facility] [address] [id number], [place] [address]- 0254 Aug, [facility] [place] [facility] [address] [id number] [place] [address]- 7663 Aug, [facility] [place] [facility] [address] [id number] [place] [address]- 2242 Aug, [facility] [place] [facility] [address] [id number] [place] [address]- 9404 Aug, [facility] [place] [facility] [address] [id number] [place] [address]- 8384 Aug, [facility] [address] [id number] [place] [address]- 5033 Aug, [facility] [address] [id number] [place] [address]- 6043 Aug, [facility] [address] [id number] [place] [address]- 2440 Aug, [facility] [address] [id number] [place] [address]- 8394 Aug, [facility] [address] [id number] [place] [address]- 5161 Aug, [facility] [address] [id number] [place] [address]- 2608 Aug, [facility] [address] [place] [id number] Aug, [facility] [address] [id number] [place] [address]- 3617 Aug, [facility] [address] [id number] [place] [address]- 9774 Aug, [facility] [address] [id number] [place] [address]- 6761 Aug, [facility] [address] [id number] [place] [address]- 0848 Aug, [facility] [place] [facility] [address] [id number] [place] [address]- 9234 Aug, [facility] [address] [id number] [place] [address]- 1629 Aug, [facility] [address] [id number] [place] [address]- 9793 Aug, [facility] [place] [facility] [address] [id number] [place] 8298 Aug, [facility] [address] [id number] [place] [address]- 9374 08 Aug, 2014 [facility] [address] [id number] [place] [address]- 9931 Aug, [facility] [place] [facility] [address] [id number] [place] 1357 Aug, [facility] [place] [facility] [address] [id number] [place] [address]- 7169 Aug, [facility] [place] [facility] [address] [id number] [place] [address]- 0733 Aug, [facility] [place] [facility] [address] [id number] [place] 3032 Aug, [facility] [place] [facility] [address] [id number] [place] [address]- 3381 Aug, [facility] [place] [facility] [address] [id number] [place] [address]- 9831 Aug, [facility] [place] [facility] [address] [id number] [place] [address]- 5199 Aug, [facility] [place] [facility] [address] [id number] [place] [address]- 9661 Aug, [facility] [place] [facility] [address] [id number] [place] [address]- 8618 Jul, [facility] [place] [facility] [address] [id number] [place] [address]- 8787 Jul, [facility] [place] [facility] [address] [id number] [place] [address]- 3092 Jul, [facility] [place] [facility] [address] [id number] [place] [address]- 3257 Jul, [facility] [place] [facility] [address] [id number] [place] [address]- 3082 Jul, [facility] [place] [facility] [address] [id number] [place] [address]- 6766 Jul, [facility] [place] [facility] [address] [id number] [place] [address]- 4621 Jul, [facility] [place] [facility] [address] [id number] [place] 4473 Jul, [facility] [place] [facility] [address] [id number] [place] [address]- 9337 Jul, [facility] [place] [facility] [address] [id number] [place] [address]- 2365 Jul, [facility] [place] [facility] [address] [id number] [place] [address]- 1766 Jun, [facility] [place] [facility] [address] [id number] [place] [address]- 0722 Jun, [facility] [place] [facility] [address] [id number] [place] [address]- 0937 Jun, [facility] [place] [facility] [address] [id number], [place] [address]- 4834 Jun, [facility] [place] [facility] [address] [id number] [place] [address]- 0262 Jun, [facility] [place] [facility] [address] [id number], [place] [address]- 9239 Jun, [facility] [place] [facility] [address] [facility] [id number], [place] [address]- 2042 Jun, [facility] [place] [facility] [address] [id number], [place] [address]- 3176 Jun, [facility] [place] [facility] [address] [id number], [place] [address]- 4150 Jun, [facility] [place] [facility] [address] [id number] 7997 Jun, [facility] [place] [facility] [address] [facility] [id number], [place] [address]- 9101 May, [facility] [place] [facility] [address] [id number], [place] [address]- 1452 29 Sep, 2013 [facility] [place] [facility] [address] [id number] [place] [address] 2546 26 Sep, 2013 [facility] [place] [facility] [address] [id number] [place] [address] 2546 26 Sep, 2013 [facility] [place] [facility] [address] [id number] [place] [address] 2546 17 Sep, 2013 [facility] [place] [facility] [address] [id number] [place] [address] 2547 17 Sep, 2013 [facility] [place] [facility] [address] [id number] [place] [address]- 7065 15 May, 2013 [facility] [place] [facility] [address] [id number] [place] [address]- 0576 15 May, 2013 [facility] [place] [facility] [address] [id number] [place] [address]- 4089 15 May, 2013 [facility] [place] [facility] [address] [id number] [place] [address]- 2542 15 May, 2013 [facility] [place] [facility] [address] [id number] [place] [address]- 2114 10 May, 2013 [facility] [place] [facility] [address] [id number] [place] [address]- 2544 10 May, 2013 [facility] [place] [facility] [address] [id number] [place] [address] 2548 09 May, 2013 [facility] [place] [facility] [address] [id number] [place] [address]- 2547 09 May, 2013 [facility] [place] [facility] [address] [id number] [place] [address] 2543 04 May, 2013 [facility] [place] [facility] [address] [id number] [place] [address]- 2548 04 May, 2013 [facility] [place] [facility] [address] [id number] [place] [address]- 8661 30 Apr, 2014 [facility] [place] [facility] [address] [id number] [place] [address]- 7739 Apr, [facility] [place] [facility] [address] [id number] [place] [address]- 3142 Apr, [facility] [place] [facility] [address] [id number] [place] [address]- 7887 Apr, [facility] [place] [facility] [address] [id number] [place] [address]- 0029 Apr, [facility] [place] [facility] [address] [id number] [place] [address]- 5880 Apr, [facility] [place] [facility] [address] [id number] [place] [address]- 4667 Apr, [facility] [place] [facility] [address] [id number] [place] [address]- 9694 Apr, [facility] [place] [facility] [address] [id number] [place] [address]- 6642 Apr, [facility] [place] [facility] [address] [id number] [place] [address]- 5838 Apr, [facility] [place] [facility] [address] [id number] [place] [address]- 8577 Apr, [facility] [place] [facility] [address] [id number] [place] [address]- 6740 Apr, [facility] [place] [facility] [address] [id number] [place] [address]- 1807 Apr, [facility] [place] [facility] [address] [id number] [place] [address]- 4475 Apr, [facility] [place] [facility] [address] [id number] [place] [address]- 2828 Apr, [facility] [place] [facility] [address] [id number] [place] [address]- 5696 Mar, [facility] [place] [facility] [address] [id number] [place] [address] Mar, 2013 [facility] [place] [facility] [address] [id number] [place] [address] Mar, 2013 [facility] [place] [facility] [address] [id number] [place] [address] Mar, [facility] [place] [facility] [address] [id number] [place] [address] Mar, 2013 [facility] [place] [facility] [address] [id number] [place] [address] Mar, 2013 [facility] [place] [facility] [address] [id number] [place] [address] Mar, [facility] [place] [facility] [address] [id number] [place] [address] Mar, [facility] [place] [facility] [address] [id number] [place] [address] Mar, [facility] [place] [facility] [address] [id number] [place] [address]- [address] Mar, 2013 [facility] [place] [facility] [address] [id number] [place] [address]- [address] Mar, 2013 [facility] [place] [facility] [address] [id number] [place] [address]- [address] Mar, 2013 [facility] [place] [facility] [address] [id number] [place] [address] Mar, 2013 [facility] [place] [facility] [address] [id number] [place] [address] Mar, 2013 [facility] [place] [facility] [address] [id number] [place] [address]- [address] Mar, [facility] [place] [facility] [address] [id number] [place] [address]- [address]268 Mar, 2013 [facility] [place] [facility] [address] [id number] [place] [address]- [address] Mar, 2013 [facility] [place] [facility] [address] [id number] [place] [address] Mar, [facility] [place] [facility] [address] [id number] [place] [address] Feb, [facility] [place] [facility] [address] [id number] [place] [address] Feb, [facility] [place] [facility] [address] [id number] [place] [address]- [address] Feb, [facility] [place] [facility] [address] [id number] [place] [address] Feb, [facility] [place] [facility] [address] [id number] [place] [address]- [address] Feb, [facility] [place] [facility] [address] [id number] [place] [address] 1992 Feb, [facility] [place] [facility] [address] [id number] [place] [address]- [address] Feb, [facility] [place] [facility] [address] [id number] [place] [address]- 8065 Feb, [facility] [place] [facility] [address] [id number] [place] [address] Feb, [facility] [place] [facility] [address] [id number] [place] [address]- [address] Feb, [facility] [place] [facility] [address] [id number] [place] [address] Feb, [facility] [place] [facility] [address] [id number] [place] [address]- [address] Feb, [facility] [place] [facility] [address] [id number] [place] [address]- [address] Feb, [facility] [place] [facility] [address] [id number] [place] [address]- 8080 Feb, [facility] [place] [facility] [address] [id number] [place] [address] January, [facility] [place] [facility] [address] [id number] [place] [address]- [address] January, [facility] [place] [facility] [address] [id number] [place] [address]- [address] January, [facility] [place] [facility] [address] [id number] [place] [address] January, [facility] [place] [facility] [address] [id number] [place] [address] January, [facility] [place] [facility] [address] [id number] [place] [address] January, [facility] [place] [facility] [address] [id number] [place] [address]- [address] January, [facility] [place] [facility] [address] [id number] [place] [address] January, [facility] [place] [facility] [address] [id number] [place] [address]- [address] January, [facility] [place] [facility] [address] [id number] [place] [address]- [address] January, [facility] [place] [facility] [address] [id number] [place] [address]- [address] January, [facility] [place] [facility] [address] [id number] [place] [address] January, [facility] [place] [facility] [address] [id number] [place] [address] January, [facility] [place] [facility] [address] [id number] [place] [address] January, [facility] [place] [facility] [address] [id number] [place] [address]- [address] Dec, [facility] [place] [facility] [address] [id number] [place] [address]- [address] Dec, [facility] [place] [facility] [address] [id number] [place] [address]- 2016 Dec, [facility] [place] [facility] [address] [id number] [place] [address]- [address] Dec, [facility] [place] [facility] [address] [id number] [place] [address]- [address] Dec, [facility] [place] [facility] [address] [id number] [place] [address]- [address] Dec, [facility] [place] [facility] [address] [id number] [place] [address]- [address] Dec, [facility] [place] [facility] [address] [id number] [place] [address]- [address] Dec, [facility] [place] [facility] [address] [id number] [place] [address]- [address] Dec, [facility] [place] [facility] [address] [id number] [place] [address]- 60[address] Dec, [facility] [place] [facility] [address] [id number] [place] [address]- [address] Nov, [facility] [place] [facility] [address] [address] [id number] [place] [address] Nov, [facility] [place] [facility] [address] [id number] [place] [address] 2178 Nov, [facility] [place] [facility] [address] [id number] [place] [address] 9153 Nov, [facility] [place] [facility] [address] [id number] [place] [address] 5167 Nov, [facility] [place] [facility] [address] [id number] [place] [address]- 7335 Nov, [facility] [place] [facility] [address] [id number] [place] [address]- 2276 Nov, [facility] [place] [facility] [address] [id number] [place] [address] 9951 Nov, [facility] [place] [facility] [address] [id number] [place] [address]- 8046 Nov, [facility] [place] [facility] [address] [id number] [place] [address]- 5267 Nov, [facility] [place] [facility] [address] [id number] [place] [address]- 6632 Oct, [facility] [place] [facility] [address] [id number] [place] [address]- 0204 Oct, [facility] [place] [facility] [address] [id number] [place] [address]- 5909 Oct, [facility] [place] [facility] [address] [id number] [place] [address]- 1596 Oct, [facility] [place] [facility] [address] [facility] [id number] [place] [address]- 7674 Oct, [facility] [place] [facility] [address] [id number] [place] [address]- 7307 Oct, [facility] [place] [facility] [address] [id number] [place] [address]- 7271 Oct, [facility] [place] [facility] [address] [facility] [id number] [place] [address]- 7666 Oct, [facility] [place] [facility] [address] [facility] [id number] [place] [address]- 7124 Oct, [facility] [place] [facility] [address] [facility] [id number], [place] [address]- 1302 Oct, [facility] [place] [facility] [address] [facility] [id number] [place] [address]- 5836 Oct, [facility] [place] [facility] [address] [id number] [place] [address]- 8897 Oct, [facility] [place] [facility] [address] [facility] [id number] [place] [address]- 5393 Oct, [facility] [place] [facility] [address] [facility] [id number], [place] [address]- 7499 Oct, [facility] [address] [id number] [place] [address]- 2593 Sep, [facility] [place] [facility] [address] [id number] [place] [address]- 4335 Sep, [facility] [place] [facility] [address] [id number] [place] [address]- 0556 Sep, [facility] [place] [facility] [address] [id number] [place] [address]- 4151 15 Sep, 2013 [facility] [address] [id number] [place] [address]- 3452 Sep, [facility] [place] [facility] [address] [id number] [place] [address]- 9973 Sep, [facility] [address] [id number] [place] [address]- 7015 Sep, [facility] [place] [facility] [address] [id number] [place] [address]- 0012 Sep, [facility] [place] [facility] [address] [id number] [place] [address]- 2261 Sep, [facility] [place] [facility] [address] [facility] [id number] [place] [address]- 5913 Sep, [facility] [place] [facility] [address] [id number] [place] [address]- 9493 Aug, [facility] [place] [facility] [address] [id number] [place] [address]- 7580 Aug, [facility] [place] [facility] [address] [id number] [place] [address]- 4169 Jul, [facility] [place] [facility] [address] [id number] [place] [address]- 3225 Jul, [facility] [place] [facility] [address] [id number] [place] [address]- 5379 Jul, [facility] [place] [facility] [address] [id number] [place] [address]- 0394 Jul, [facility] [place] [facility] [address] [id number] [place] [address]- 0693 Jul, [facility] [place] [facility] [address] [id number] [place] [address]- 8903 Jul, [facility] [place] [facility] [address] [id number] [place] [address]- 4741 Jul, [facility] [place] [facility] [address] [id number] [place] [address] 1967 Jul, [facility] [place] [facility] [address] [id number] [place] [address]- 7641 Jul, [facility] [place] [facility] [address] [id number] [place] [address]- 7936 Jul, [facility] [place] [facility] [address] [id number] [place] [address]- 2759 Jul, [facility] [place] [facility] [address] [id number] [place] [address]- 2290 Jul, [facility] [place] [facility] [address] [id number] [place] [address]- 0554 Jul, [facility] [place] [facility] [address] [id number] [place] [address]- 4908 Jul, [facility] [place] [facility] [address] [id number] [place] [address]- 7192 Jul, [facility] [place] [facility] [address] [id number] [place] [address]- 6586 Jul, [facility] [place] [facility] [address] [id number] [place] [address]- 4710 Jul, [facility] [place] [facility] [address] [id number] [place] [address]- 3310 Jul, [facility] [place] [facility] [address] [id number] [place] [address]- 5296 Jul, [facility] [place] [facility] [address] [id number] [place] [address] 2549 16 Jun, 2012 [facility] [place] [facility] [address] [id number] [place] [address]- 2546 16 Jun, 2012 [facility] [place] [facility] [address] [id number] [place] [address]- 2548 16 Jun, 2012 [facility] [place] [facility] [address] [id number] [place] [address]- 2540 16 Jun, 2012 [facility] [place] [facility] [address] [id number] [place] [address] 2542 Jun, 2012 [facility] [place] [facility] [address] [id number] [place] [address]- 6702 Jun, 2012 [facility] [place] [facility] [address] [id number], [place] [address]- 6346 10 Jun, 2012 [facility] [place] [facility] [address] [id number], [place] [address]- 2671 10 Jun, 2012 [facility] [place] [facility] [address] [id number], [place] [address]- 5984 Jun, 2012 [facility] [place] [facility] [address] [id number], [place] [address]- 9760 Jun, [facility] [place] [facility] [address] [id number], [place] [address] 2545 Jun, [facility] [place] [facility] [address] [id number], [place] [address] 2541 26 May, 2012 [facility] [place] [facility] [address] [id number], [place] [address]- 1326 25 May, 2012 [facility] [place] [facility] [address] [id number], [place] [address]- 7308 19 May, 2012 [facility] [place] [facility] [address] [id number], [place] [address] 254 17 Sep, 2012 [facility] [place] [facility] [address] [id number] [place] [address]- 8157 11 May, 2012 [facility] [place] [facility] [address] [id number] [place] [address]- 7976 10 May, 2012 [facility] [place] [facility] [address] [id number] [place] [address]- 8826 May, [facility] [place] [facility] [address] [id number] [place] [address]- 1415 05 May, 2013 [facility] [place] [facility] [address] [id number] [place] [address]- 3912 Apr, [facility] [place] [facility] [address] [id number] [place] [address]- 0192 Apr, [facility] [place] [facility] [address] [id number] [place] [address]- 0503 Apr, [facility] [place] [facility] [address] [id number] [place] [address]- 4602 Apr, [facility] [place] [facility] [address] [id number] [place] [address]- 4187 Apr, [facility] [place] [facility] [address] [id number] [place] [address]- 6358 Mar, [facility] [place] [facility] [address] [id number] [place] [address]- 1164 Mar, [facility] [place] [facility] [address] [id number] [place] [address]- 2922 Mar, [facility] [place] [facility] [address] [id number] [place] [address]- 5299 Mar, [facility] [place] [facility] [address] [id number] [place] [address]- 9530 Mar, [facility] [place] [facility] [address] [id number] [place] [address]- 1256 Mar, [facility] [place] [facility] [address] [id number] [place] [address]- 0975 Mar, [facility] [place] [facility] [address] [id number] [place] [address]- 9218 Mar, [facility] [address] [id number] [place] [address]- 8938 Feb, [facility] [address] [id number] [place] [address]- 0962 Feb, [facility] [place] [facility] [address] [id number] [place] [address]- 8900 January, [facility] [address] [id number] [place] [address]- 3787 January, [facility] [address] [id number] [place] [address]- 3863 Dec, [facility] [address] [id number] [place] [address]- 6970 Dec, [facility] [address] [id number] [place] [address]- 4579 Nov, [facility] [address] [id number] [place] [address]- 9349 Nov, [facility] [address] [id number] [place] [address]- 1375 Nov, [facility] [address] [id number] [place] [address]- 0915 Nov, [facility] [address] [id number] [place] [address]- 6319 Oct, [facility] [place] [facility] [address] [id number] [place] [address]- 2516 Oct, [facility] [place] [facility] [address] [id number] [place] [address]- 7338 Oct, [facility] [place] [facility] [address] [id number] [place] [address]- 0384 Oct, [facility] [place] [facility] [address] [id number] [place] [address]- 4244 16 Oct, 2012 [facility] [address] [id number] [place] [address]- 7552 14 Oct, 2012 [facility] [address] [id number] [place] [address]- 3266 08 Oct, 2012 [facility] [address] [id number] [place] [address]- 4126 07 Oct, 2012 [facility] [address] [id number] [place] [address] 2540 03 Oct, 2012 [facility] [address] [id number] [place] [address]- 6784 30 Sep, 2012 [facility] [address] [id number] [place] [address]- 6526 Sep, [facility] [address] [id number] [place] [address]- 5107 23 Sep, 2012 [facility] [address] [id number] [place] [address]- 4441 Sep, [facility] [address] [id number] [place] [address]- 2096 17 Sep, 2012 [facility] [address] [id number] [place] [address]- 9673 10 Sep, 2012 [facility] [address] [id number] [place] [address]- 0999 Sep, [facility] [address] [id number] [place] [address]- 2235 Sep, [facility] [address] [id number] [place] [address]- 7251 Aug, [facility] [address] [id number] [place] [address]- 0076 Aug, [facility] [address] [id number] [place] [address]- 5578 Aug, [facility] [place] [facility] [address] [id number] [place] [address]- 5084 Aug, [facility] [place] [facility] [address] [id number] [place] [address]- 8701 Aug, [facility] [place] [facility] [address] [id number] [place] [address]- 6724 Aug, [facility] [place] [facility] [address] [id number] [place] [address]- 6406 Aug, [facility] [place] [facility] [address] [id number] [place] [address]- 7003 Aug, [facility] [place] [facility] [address] [id number] [place] [address]- 4540 Jul, [facility] [place] [facility] [address] [id number] [place] [address]- 1369 Jul, [facility] [place] [facility] [address] [id number] [place] [address]- 7831 Jul, [facility] [place] [facility] [address] [id number] [place] [address]- 4897 Jul, [facility] [place] [facility] [address] [id number] [place] [address]- 3586 Jul, [facility] [place] [facility] [address] [id number], [place] [address]- 2222 Jul, [facility] [place] [facility] [address] [id number], [place] [address]- 2180 Jun, [facility] [place] [facility] [address] [id number], [place] [address]- 5335 Jun, [facility] [place] [facility] [address] [id number], [place] [address]- 2741 Jun, [facility] [place] [facility] [address] [id number], [place] [address]- 3846 Jun, [facility] [place] [facility] [address] [id number], [place] [address]- 4645 Jun, [facility] [place] [facility] [address] [id number] [place] [address]- 9307 Jun, [facility] [place] [facility] [address] [id number] [place] [address]- 5346 Jun, [facility] [place] [facility] [address] [id number] [place] [address]- 7296 Jun, [facility] [place] [facility] [address] [id number] [place] [address]- 4408 Jun, [facility] [place] [facility] [address] [id number] [place] [address]- 2709 26 May, 2012 [facility] [place] [facility] [address] [id number] [place] [address]- 8944 24 May, 2012 [facility] [place] [facility] [address] [id number] [place] [address]- 3438 May, [facility] [place] [facility] [address] [id number] [place] [address]- 6977 Apr, [facility] [place] [facility] [address] [id number] [place] [address]- 8235 Apr, [facility] [place] [facility] [address] [id number] [place] [address]- 7573 Apr, [facility] [place] [facility] [address] [id number] [place] [address]- 5056 Apr, [facility] [place] [facility] [address] [id number] [place] [address]- 8206 Apr, [facility] [place] [facility] [address] [id number] [place] [address]- 4428 Apr, [facility] [place] [facility] [address] [id number] [place] [address]- 6097 Mar, [facility] [place] [facility] [address] [id number] [place] [address]- 0025 Mar, [facility] [place] [facility] [address] [id number] [place] [address]- 2566 Mar, [facility] [address] [id number] [place] [address]- 0423 Mar, [facility] [place] [facility] [address] [id number] [place] [address]- 7356 Feb, [facility] [place] [facility] [address] [id number] [place] [address]- 0653 Feb, [facility] [place] [facility] [address] [id number] [place] [address]- 7520 Feb, [facility] [place] [facility] [address] [id number] [place] [address]- 3218 Feb, [facility] [place] [facility] [address] [id number] [place] [address]- 2845 Feb, [facility] [place] [facility] [address] [id number] [place] [address]- 8609 January, [facility] [address] [id number] [place] [address]- 0205 January, [facility] [place] [facility] [address] [id number] [place] [address]- 7032 January, [facility] [place] [facility] [address] [id number] [place] [address]- 9381 January, [facility] [place] [facility] [address] [id number] [place] [address]- 5716 January, [facility] [place] [facility] [address] [id number] [place] [address]- 1516 January, [facility] [place] [facility] [address] [id number] [place] [address]- 9861 Dec, [facility] [place] [facility] [address] [id number] [place] [address]- 3156 Dec, [facility] [place] [facility] [address] [id number] [place] [address]- 5613 Dec, [facility] [place] [facility] [address] [id number] [place] [address]- 9965 09 Dec, 2011 [facility] [place] [facility] [address] [id number] [place] [address]- 8766 06 Dec, 2011 [facility] [place] [facility] [address] [id number] [place] [address]- 8442 27 Nov, 2011 [facility] [place] [facility] [address] [id number] [place] [address]- 6494 14 Nov, 2011 [facility] [place] [facility] [address] [id number] [place] [address]- 6543 Nov, [facility] [place] [facility] [address] [id number] [place] [address]- 2343 07 Nov, 2011 [facility] [place] [facility] [address] [facility] [id number] [place] [address]- 1577 29 Oct, 2011 [facility] [place] [facility] [address] [id number] [place] [address]- 0344 Oct, [facility] [place] [facility] [address] [id number] [place] [address]- 0475 24 Oct, 2011 [facility] [place] [facility] [address] [facility] [id number] [place] [address]- 9063 Oct, [facility] [place] [facility] [address] [id number] [place] [address]- 1344 Oct, [facility] [place] [facility] [address] [id number] [place] [address]- 4811 Sep, [facility] [place] [facility] [address] [id number] [place] [address]- 0919 30 Sep, 2011 [facility] [place] [facility] [address] [facility] [id number] [place] [address]- 9313 Sep, [facility] [place] [facility] [address] [facility] [id number] [place] [address]- 6144 Sep, [facility] [place] [facility] [address] [id number] [place] [address]- 5644 Sep, [facility] [address] [id number] [place] [address]- 0020 Sep, [facility] [place] [facility] [address] [id number] [place] [address]- 4893 Aug, [facility] [place] [facility] [address] [id number] [place] [address]- 5416 Aug, [facility] [place] [facility] [address] [id number] [place] [address]- 8762 Aug, [facility] [place] [facility] [address] [id number] [place] [address]- 0014 Jul, [facility] [place] [facility] [address] [id number] [place] [address]- 5416 Jul, [facility] [place] [facility] [address] [id number] [place] [address]- 6081 Jul, [facility] [place] [facility] [address] [id number] [place] [address]- 5772 Jul, [facility] [place] [facility] [address] [id number] [place] [address]- 5206 Jun, [facility] [place] [facility] [address] [id number] [place] [address]- 3840 Jun, [facility] [place] [facility] [address] [id number] [place] [address]- 9791 Jun, [facility] [place] [facility] [address] [id number] [place] [address]- 3938 Jun, [facility] [place] [facility] [address] [id number] [place] [address]- 6321 Jun, [facility] [place] [facility] [address] [facility] [id number] [place] [address]- 5457 Jun, [facility] [place] [facility] [address] [id number] [place] [address] Mar, [facility] [address] [id number] [place] [address] 18 Dec, 2010 [facility] [place] [facility] [address] [id number] [place] [address] 11 Dec, 2010 [facility] [place] [facility] [address] [id number] [place] [address] 18 Nov, 2010 [facility] [place] [facility] [address] [id number] [place] [address] 16 Nov, 2010 [facility] [address] [id number] [place] [address] 10 Sep, 2010 [facility] [place] [facility] [address] [id number] [place] [address] 269[address] 31 Aug, 2010 [facility] [place] [facility] [address] [id number] [place] [address] 29 Aug, 2010 [facility] [place] [facility] [address] [id number] [place] [address] 29 Aug, 2010 [facility] [place] [facility] [address] [id number] [place] [address] 40[address] 29 Aug, 2010 [facility] [place] [facility] [address] [id number] [place] [address] 27 Aug, 2010 [facility] [address] [id number] [place] [address] 14 Aug, 2010 [facility] [place] [facility] [address] [id number], [place] [address] 08 Aug, 2010 [facility] [place] [facility] [address] [id number] [place] [address]687 08 Aug, 2010 [facility] [place] [facility] [address] [id number] [place] [address] 28[address] 07 Aug, 2010 [facility] [place] [facility] [address] [id number] [place] [address]- 160[address] 06 Aug, 2010 [facility] [place] [facility] [address] [id number], [place] [address] Aug, [facility] [place] [facility] [address] [id number] [place] [address] Aug, [facility] [place] [facility] [address] [id number] [place] [address] Jul, [facility] [place] [facility] [address] [facility] [id number] [place] [address] Jul, [facility] [place] [facility] [address] [id number] [place] [address] Jul, [facility] [place] [facility] [address] [id number] [place] [address] Jul, [facility] [place] [facility] [address] [facility] [id number] [place] [address] Jul, [facility] [place] [facility] [address] [facility] [id number] [place] [address] Jul, [facility] [place] [facility] [address] [facility] [id number] [place] [address] Jun, [facility] [place] [facility] [address] [facility] [id number] [place] [address] Jun, [facility] [place] [facility] [address] [facility] [id number] [place] [address] Jun, [facility] [place] [facility] [address] [facility] [id number], [place] [address] Jun, [facility] [address] [id number], [place] [address] Apr, [facility] [facility] [address] [id number] [place] [address] Mar, [facility] [address] [facility] [id number] [place] [address] 269[address] Feb, [facility] [address] [facility] [id number] [place] [address] January, [facility] [place] [facility] [address] [id number] [place] [address]- [address] 15 Dec, 2009 [facility] [facility] [address] [id number] [place] [address] Nov, [facility] [place] [facility] [address] [id number] [place] [address] Aug, [facility] [place] [facility] [address] [id number] [place] [address] Aug, [facility] [place] [facility] [address] [id number] [place] [address] Aug, [facility] [address] [id number] [place] [address] 47[address] Jul, [facility] [place] [facility] [address] [facility] [id number] [place] [address]- [address] Jul, [facility] [address] [facility] [id number] [place] [address] Jul, [facility] [address] [id number] [place] [address] 39[address] 30 Jun, 2009 [facility] [address] [id number] [place] [address] 29 Jun, 2009 [facility] [address] [facility] [id number] [place] [address]- [address] Jun, [facility] [address] [id number] [place] [address] Jun, [facility] [address] [id number] [place] [address] Jun, [facility] [address] [id number] [place] [address] Jun, [facility] [address] [facility] [id number] [place] [address]- [address] Apr, [facility] [address] [id number] [place] [address] Apr, [facility] [address] [facility] [id number] [place] [address] Feb, [facility] [address] [facility] [id number], [place] [address] January, [facility] [address] [facility] [id number], [place] [address] Dec, IMMUNIZATIONS No Known Immunizations SOCIAL HISTORY Never Assessed REASON FOR VISIT knee f/u PLAN OF CARE Activity Details Follow Up prn Reason: VITAL SIGNS MEDICATIONS Unknown Medications RESULTS No Results PROCEDURES Procedure Date Ordered Result Body Site DRAIN/INJECT, JOINT/BURSA Apr 26, 2018 [facility] VISIT ESTABLISHED PATIENT Apr 26, 2018 DEPO MEDROL 80 MG/ML Apr 26, 2018 INSTRUCTIONS MEDICATIONS ADMINISTERED No Known Medications MEDICAL (GENERAL) HISTORY Type Description Date Medical History type II diabetes Medical History coronary artery disease stress test 01/5015 Medical History chronic obstructive pulmonary disease (COPD) Medical History gastroesophageal reflux disease (GERD) Medical History acute renal failure Medical History erectile dysfunction Medical History hyperlipidemia Medical History obesity Medical History skin cancer-basal cell R caodaism (removed) Medical History Arthritis Medical History degenerative [...] 2009 Surgical History colonoscopy 2009 ([facility] 2013 ([place]) Surgical History heart 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 04/2014 Surgical History carotid US 05/2014 Surgical History resection of skin cancer from Right caodaism Surgical History Biopsy of Lung Bilateral/Left lung lymph node 09/2016 Surgical History Bone Marrow Biopsy Surgical History port in the right chest wall 12/2016 Hospitalization History [facility] low potassium, low magnesium, chest painina 01/2015 Hospitalization History inability to urinate 09/16/15 Hospitalization History [facility] early Hospitalization History hyperkalemia 10/2017 Hospitalization History fluid in lung
--- OUTSIDE RECORDS SUMMARY | 2018-08-08 13:47 | XMS REPORT ---
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 Name Role Phone NOEMI WASHBURN Unavailable PROBLEMS Type Condition ICD9-CM Code BHX50-UT Code Onset Dates Condition Status SNOMED Code Problem Chronic lymphocytic leukemia C91.10 Active 39077129 Problem Lymphocytosis D72.820 Active 50815925 Problem Eye exam abnormal R93.8 Active 893672730 Problem Eustachian tube dysfunction, unspecified laterality H69.80 Active 53399788 Problem Essential hypertension I10 Active 15003414 Problem Dysuria R30.0 Active 10278816 Problem Diabetic polyneuropathy associated with type 2 diabetes mellitus E11.42 Active 37210675 Problem Cough R05 Active 36094301 Problem Polyneuropathy associated with underlying disease G63 Active 363959142 Problem Retinal edema H35.81 Active 1730768 Problem Bilateral primary osteoarthritis of knee M17.0 Active 610471819 Problem Primary osteoarthritis of right knee M17.11 Active 029142792265261 Problem Pure hypercholesterolemia E78.00 Active 523497038 Problem DM neuro manif type II E11.49 Active 34743957 Problem Benign prostatic hyperplasia with lower urinary tract symptoms, unspecified morphology N40.1 Active 753879453 Problem Hypokalemia E87.6 Active 47537083 Problem 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 Active 637611571 Problem Anemia of chronic illness D63.8 Active 494981847 Problem Bipolar disorder, in partial remission, most recent episode depressed F31.75 Active 81755913 Problem Falling R29.6 Active 095219117 Problem Leukocytosis D72.829 Active 327489679 Problem Reactive airway disease J45.909 Active 323846676691 Problem Diabetes E11.9 Active 60350171 Problem Chronic pain G89.29 Active 29043442 Problem Anxiety F41.9 Active 68481032 Problem Morbid obesity E66.01 Active 032892415 Problem Bipolar I disorder, most recent episode (or current) mixed, moderate F31.62 Active 04040319 Problem Insomnia, unspecified type G47.00 Active 193454241 ALLERGIES No Information ENCOUNTERS Encounter Location Date Diagnosis [place] [id number] [place] [address] 72822- 4604 Jun, [facility] [id number] [place] [address] 67070- 8861 Jun, [place] [id number] [place] [address] 48979- 0849 Jun, [facility] [id number] [place] [address] 87019- 3710 May, Chronic pain G89.29 [place] [id number] [place] [address] 24527- 3420 Apr, [place] [address] 41294- 3724 Apr, Chronic pain G89.29 [place] [id number] [place] [address] 60467- 9012 Apr, Primary osteoarthritis of right knee M17.11 [place] [id number] [place] [address] 50352- 8887 Mar, [place] [id number] [place] [address] 94517- 5232 Mar, BMI 50.0-59.9, adult Z68.43 and Bipolar disorder, in partial remission, most recent episode depressed F31.75 [place] [id number] [place] [address] 81355- 5863 Mar, Diabetes E11.9 ; Pure hypercholesterolemia E78.00 ; Essential hypertension I10 ; Nausea with vomiting, unspecified R11.2 and Headache, unspecified headache type R51 [place] [address] [place] [address] 94711- 5395 Mar, Bipolar I disorder, most recent episode (or current) mixed, moderate F31.62 [facility] [address] [address] 1057 Mar, Bipolar I disorder, most recent episode (or current) mixed, moderate F31.62 [facility] [address], [place] [address]- 5346 Mar, Chronic pain G89.29 [facility] [address] [place] [address] 37028- 2556 Mar, Bipolar I disorder, most recent episode (or current) mixed, moderate F31.62 [facility] [id number] [place] [address] 33222- 6304 Feb, Bipolar I disorder, most recent episode (or current) mixed, moderate F31.62 [place] [address] [place] [address] 49593- 4086 Feb, Chronic pain G89.29 [facility] [id number] [place] [address] 62189- 8069 Feb, Decubitus ulcer of right foot, stage 3 L89.893 and BMI 50.0- 59.9, adult Z68.43 [place] [address] [place] [address] 14004- 6737 Feb, Bipolar I disorder, most recent episode (or current) mixed, moderate F31.62 [place] [address] [place] [address] 40692- 4660 Feb, [facility] [id number] [place] [address] 95725- 2969 January, [facility] [id number] [place] [address] 95672- 3477 January, Chronic pain G89.29 [facility] [address] [address]- 0445 January, Bipolar I disorder, most recent episode (or current) mixed, moderate F31.62 [facility] [id number] [place] [address] 34865- 6782 January, Bipolar I disorder, most recent episode (or current) mixed, moderate F31.62 [place] [id number] [place] [address] 83835- 6985 Dec, Bipolar I disorder, most recent episode (or current) mixed, moderate F31.62 and BMI 50.0-59.9, adult Z68.43 [place] [id number] [place] [address] 30566- 6783 Dec, Bipolar I disorder, most recent episode (or current) mixed, moderate F31.62 [place] [id number] [place] [address] 36243- 5703 Dec, Chronic pain G89.29 [place] [id number] [place] [address] 18786- 2083 Dec, DM neuro manif type II E11.49 ; Right flank pain R10.9 ; halfway 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 Z79.891 ; Encounter for medication monitoring Z51.81 and BMI 50.0-59.9, adult Z68.43 [place] [id number] [place] [address] 53457- 3574 Dec, Bipolar I disorder, most recent episode (or current) mixed, moderate F31.62 [place] [id number] [place] [address] 69826- 0030 Nov, Bipolar I disorder, most recent episode (or current) mixed, moderate F31.62 [place] [id number] [place] [address] 16862- 4721 Nov, Chronic pain G89.29 [place] [id number] [place] [address] 72535- 2129 Nov, Bipolar I disorder, most recent episode (or current) mixed, moderate F31.62 [place] [id number] [place] [address] 62851- 3999 Nov, Hypokalemia E87.6 [place] [id number] [place] [address] 75134- 3610 Nov, Bipolar I disorder, most recent episode (or current) mixed, moderate F31.62 [place] [id number] [place] [address] 10180- 0040 Oct, Chronic pain G89.29 [place] [address] 12605- 8064 Oct, BMI 50.0-59.9, adult Z68.43 and Bipolar I disorder, most recent episode (or current) mixed, moderate F31.62 [place] [address] 21581- 0959 Oct, Bipolar I disorder, most recent episode (or current) mixed, moderate F31.62 [place] [address] 33219- 5839 Oct, [place] [address] 73686- 0523 Oct, Hypokalemia E87.6 [place] [address] 95939- 2131 Oct, DM neuro manif type II E11.49 [place] [address] 99198- 4479 Oct, Bipolar I disorder, most recent episode (or current) mixed, moderate F31.62 [place] [id number] [place] [address] 35457- 7555 Oct, Bipolar I disorder, most recent episode (or current) mixed, moderate F31.62 [place] [address] [place] [address] 1146 14 Oct, 2017 Hyperkalemia E87.5 ; Falling R29.6 ; BMI 50.0-59.9, adult Z68.43 and Acute left ankle pain M25.572 [place] [address] [place] [address] 81547- 5521 08 Oct, 2017 DM neuro manif type II E11.49 [place] [id number] [place] [address] 06947- 5667 Oct, [place] [id number] [place] [address] 63017- 9961 Sep, Chronic pain G89.29 [place] [id number] [place] [address] 56447- 5659 Sep, [place] [id number] [place] [address] 41645- 5736 Sep, Bilateral primary osteoarthritis of knee M17.0 [place] [id number] [place] [address] 50469- 2501 Sep, Generalized edema R60.1 [place] [id number] [place] [address] 59663- 5789 Sep, Bipolar I disorder, most recent episode (or current) mixed, moderate F31.62 [place] [id number] [place] [address] 06679- 1211 15 Sep, 2017 Hypoxia R09.02 ; Other hypervolemia E87.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 ; Anemia of chronic illness D63.8 and BMI 50.0- 59.9, adult Z68.43 [place] [id number] [place] [address] 79380- 3578 Sep, [place] [id number] [place] [address] 37833- 6580 Sep, Bipolar I disorder, most recent episode (or current) mixed, moderate F31.62 [place] [id number] [place] [address] 74686- 4079 Aug, Chronic pain G89.29 [facility] [address], [place] [address]- 2968 Aug, Generalized edema R60.1 [facility] [id number] [place] [address] 69448- 3530 Aug, [facility] [id number] [place] [address] 20777- 4546 Aug, [facility] [id number] [place] [address] 083215- 6016 14 Aug, 2017 Bipolar I disorder, most recent episode (or current) mixed, moderate F31.62 [facility] [id number] [place] [address] 370717- 3769 Aug, Bipolar I disorder, most recent episode (or current) mixed, moderate F31.62 [facility] [id number] [place] [address] 78964- 6186 Aug, Chronic pain G89.29 [facility] [address] [place] [address] 86288- 8669 Jul, Bipolar I disorder, most recent episode (or current) mixed, moderate F31.62 [facility] [address] [place] [address] 23499- 6001 Jul, Bipolar I disorder, most recent episode (or current) mixed, moderate F31.62 and BMI 60.0-69.9, adult Z68.44 [facility] [address] [place] [address] 90546- 2968 16 Jul, 2017 Bipolar I disorder, most recent episode (or current) mixed, moderate F31.62 [facility] [address] [place] [address] 03273- 8904 06 Jul, 2017 Chronic pain G89.29 [facility] [address], [place] [address]- 0963 02 Jul, 2017 Bipolar I disorder, most recent episode (or current) mixed, moderate F31.62 [facility] [address], [place] [address]- 9504 18 Jun, 2017 Polyneuropathy associated with underlying disease G63 and Diabetes E11.9 [facility] [id number] [place] [address] 30745- 2012 16 Jun, 2017 Bipolar I disorder, most recent episode (or current) mixed, moderate F31.62 [place] [id number] [place] [address] 44216- 2410 09 Jun, 2017 Chronic pain G89.29 [place] [id number] [place] [address] 91566- 5025 27 May, 2017 Bipolar I disorder, most recent episode (or current) mixed, moderate F31.62 [place] [id number] [place] [address] 00369- 3378 21 May, 2017 Bipolar I disorder, most recent episode (or current) mixed, moderate F31.62 [place] [id number] [place] [address] 85150- 9979 20 May, 2017 Diabetic polyneuropathy associated with type 2 diabetes mellitus E11.42 [place] [id number] [place] [address] 92335- 9083 18 May, 2017 Bipolar I disorder, most recent episode (or current) mixed, moderate F31.62 [place] [address], [place] [address]- 6850 13 May, 2017 Bipolar I disorder, most recent episode (or current) mixed, moderate F31.62 [place] [address], [place] [address]- 7720 May, Chronic pain G89.29 [facility] [id number] [place] [address] 16805- 6893 Apr, Bipolar I disorder, most recent episode (or current) mixed, moderate F31.62 [place] [address] [place] [address] 06752- 9665 Apr, [place] [address] [place] [address] 47640- 6561 Apr, Chronic pain G89.29 and DM neuro manif type II E11.49 [facility] [id number] [place] [address] 73645- 2206 Apr, [facility] [id number] [place] [address] 98337- 8629 Apr, Bipolar I disorder, most recent episode (or current) mixed, moderate F31.62 [facility] [id number] [place] [address] 04065- 1857 Apr, Chronic pain G89.29 [facility] [id number] [place] [address] 20730- 2428 Apr, Iliotibial band syndrome, left M76.32 [facility] [id number] [place] [address] 87798- 9335 Apr, Bipolar I disorder, most recent episode (or current) mixed, moderate F31.62 [facility] [address] [place] [address] 88621- 1034 Mar, Bipolar I disorder, most recent episode (or current) mixed, moderate F31.62 [facility] [address] [place] [address] 17772- 9275 Mar, Bipolar I disorder, most recent episode (or current) mixed, moderate F31.62 [facility] [address] [place] [address] 66205- 4591 Mar, [facility] [address] [place] [address] 37788- 8785 Mar, Bipolar I disorder, most recent episode (or current) mixed, moderate F31.62 [facility] [address] [place] [address] 65774- 7247 Mar, Chronic pain G89.29 [facility] [id number] [place] [address] 15266- 2226 Mar, Bipolar I disorder, most recent episode (or current) mixed, moderate F31.62 [facility] [address] [place] [address] 39918- 5394 Mar, Bipolar I disorder, most recent episode (or current) mixed, moderate F31.62 [facility] [id number] [place] [address] 16135- 2709 Mar, Acute pain of left knee M25.562 ; Left hip pain M25.552 ; Generalized edema R60.1 and Tongue swelling R22.0 [facility] [id number] [place] [address] 40698- 4705 Mar, [place] [id number] [place] [address] 89421- 0436 Feb, Chronic pain G89.29 [place] [id number] [place] [address] 02130- 6078 Feb, Diabetes E11.9 [facility] [id number] [place] [address] 42333- 6873 January, Chronic pain G89.29 [facility] [id number] [place] [address] 22797- 1339 January, [facility] [id number] [place] [address] 05742- 4464 January, Bipolar I disorder, most recent episode (or current) mixed, moderate F31.62 [facility] [id number] [place] [address] 45657- 8262 Dec, Bipolar I disorder, most recent episode (or current) mixed, moderate F31.62 [facility] [id number] [place] [address] 91241- 2324 Dec, Chronic pain G89.29 [facility] [id number] [place] [address] 66320- 6430 Dec, Bipolar I disorder, most recent episode (or current) mixed, moderate F31.62 [facility] [address] [place] [address] 47152- 0955 Dec, Diabetes E11.9 ; Essential hypertension I10 ; Chronic pain G89.29 and Morbid obesity E66.01 [facility] [id number] [place] [address] 42120- 1760 Dec, [facility] [id number] [place] [address] 69381- 8251 Dec, Bipolar I disorder, most recent episode (or current) mixed, moderate F31.62 [facility] [id number] [place] [address] 30895- 5163 Dec, Bipolar I disorder, most recent episode (or current) mixed, moderate F31.62 [place] [id number] [place] [address] 90076- 8083 Nov, Chronic pain G89.29 [facility] [id number] [place] [address] 71479- 7295 Nov, Bipolar I disorder, most recent episode (or current) mixed, moderate F31.62 [facility] [id number] [place] [address] 76497- 2759 Nov, [facility] [id number] [place] [address] 35298- 0920 Nov, Bipolar I disorder, most recent episode (or current) mixed, moderate F31.62 [facility] [id number] [place] [address] 82239- 5520 Nov, Bipolar I disorder, most recent episode (or current) mixed, moderate F31.62 [place] [id number] [place] [address] 47088- 1928 Nov, [facility] [id number] [place] [address] 45220- 9845 Nov, [facility] [id number] [place] [address] 94607- 4776 Nov, [facility] [address], [place] [address]- 4229 Oct, Chronic pain G89.29 [facility] [address] [place] [address] 93008- 3005 Oct, Bipolar I disorder, most recent episode (or current) mixed, moderate F31.62 [facility] [id number] [place] [address] 97448- 0596 Oct, [facility] [id number] [place] [address] 03281- 4346 Oct, Chronic pain G89.29 ; Diabetes E11.9 ; Anxiety F41.9 and 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 [facility] [id number] [place] [address] 30592- 8336 Oct, [facility] [id number] [place] [address] 95827- 1993 Oct, Diabetes E11.9 [facility] [id number] [place] [address] 45257- 6852 Oct, Bipolar I disorder, most recent episode (or current) mixed, moderate F31.62 [facility] [address] [place] [address] 72797- 1667 Sep, Chronic pain G89.29 [facility] [id number] [place] [address] 84325- 7433 Sep, Chronic pain G89.29 [facility] [address] [place] [address] 55281- 1396 Aug, Chronic pain G89.29 [facility] [address] [place] [address] 44088- 9074 Jul, [facility] [address] [place] [address] 77804- 2678 Jul, Diabetes E11.9 [facility] [id number] [place] [address] 40044- 2724 Jul, Chronic pain G89.29 [facility] [id number] [place] [address] 02322- 1977 Jul, Bipolar I disorder, most recent episode (or current) mixed, moderate F31.62 [facility] [id number] [place] [address] 35304- 7334 Jun, Bipolar I disorder, most recent episode (or current) mixed, moderate F31.62 [place] [id number] [place] [address] 47187- 3121 Jun, [place] [id number] [place] [address] 13092- 6165 Jun, Bipolar I disorder, most recent episode (or current) mixed, moderate F31.62 [place] [id number] [place] [address] 40531- 6962 30 May, 2016 Insomnia, unspecified type G47.00 [place] [id number] [place] [address] 16576- 6354 May, Bipolar I disorder, most recent episode (or current) mixed, moderate F31.62 [place] [id number] [place] [address] 83924- 5448 14 May, 2016 [place] [id number] [place] [address] 73464- 1059 08 May, 2016 Bipolar I disorder, most recent episode (or current) mixed, moderate F31.62 [place] [id number] [place] [address] 72261- 0378 06 May, 2016 Diabetes E11.9 and Essential hypertension I10 [place] [id number] [place] [address] 04320- 7419 Apr, Chronic pain G89.29 [facility] [id number] [place] [address] 46137- 0140 Apr, Bipolar I disorder, most recent episode (or current) mixed, moderate F31.62 [facility] [id number] [place] [address] 80070- 7644 Apr, [facility] [id number] [place] [address] 31940- 3658 Apr, [facility] [id number] [place] [address] 78867- 6062 Mar, Chronic pain G89.29 ; Headache, unspecified headache type R51 ; Neuropathy G62.9 ; Pain of right hip joint M25.551 and Essential hypertension I10 [place] [id number] [place] [address] 57894- 7440 Mar, Chronic pain G89.29 [place] [id number] [place] [address] 29281- 3308 Mar, Bipolar I disorder, most recent episode (or current) mixed, moderate F31.62 [place] [id number] [place] [address] 14545- [phone] Feb, Bipolar I disorder, most recent episode (or current) mixed, moderate F31.62 and Insomnia, unspecified type G47.00 [place] [address] [address] [id number] [place] [address] 05972- 1692 Feb, Chronic pain G89.29 [place] [address] [id number] [place] [address] [phone]- 0666 Feb, Bipolar I disorder, most recent episode (or current) mixed, moderate F31.62 [place] [id number] [place] [address] [phone]- [phone] January, Bipolar I disorder, most recent episode (or current) mixed, moderate F31.62 [place] [address] [id number] [place] [address] 79631- 2094 January, Chronic pain G89.29 [place] [address] [address] [id number] [place] [address] 03785- 2681 January, Chronic pain G89.29 and Essential hypertension I10 [facility] [id number] [place] [address] [phone]- [phone] January, Bipolar I disorder, most recent episode (or current) mixed, moderate F31.62 [facility] [id number] [place] [address] [phone]- [phone] Dec, [facility] [address] [phone] Dec, [facility] [id number] [place] [address] [phone] Dec, [facility] [id number] [place] [address] [phone] Dec, [facility] [address] [id number] [place] [address] 50367- 7712 Nov, Reactive airway disease J45.909 [facility] [id number] [place] [address] 30134- 4896 Nov, [facility] [id number] [place] [address] 25286- 6915 Nov, [facility] [id number] [place] [address] 14360- 0372 Nov, [facility] [id number] [place] [address] 69477- 8166 Nov, [facility] [id number] [place] [address] 07054- 9536 Nov, Onychomycosis B35.1 ; Hammertoe M20.40 ; Coats or callus L84 and DM neuro manif type II E11.49 [facility] [id number] [place] [address] 73540- 2852 Nov, Chronic pain G89.29 ; Leukocytosis D72.829 and Diabetes E11.9 [facility] [id number] [place] [address] 02557- 3104 Nov, [facility] [id number] [place] [address] 58354- 9575 Oct, Bronchitis J40 [facility] [id number] [place] [address] 24002- 6882 Oct, [facility] [address] 01628- 1985 Oct, [facility] [address] 90185- 0047 Oct, Mastoiditis, unspecified laterality H70.90 and Type 2 diabetes mellitus with complication E11.8 [place] [address] 21927- 7209 Sep, [place] [address] 49982- 0174 Sep, Dysuria R30.0 ; Cough R05 ; Benign prostatic hyperplasia with lower urinary tract symptoms, unspecified morphology N40.1 ; Hypokalemia E87.6 and Eustachian tube dysfunction, unspecified laterality H69.80 [place] [id number] [place] [address] 34557- 9392 Sep, Moderate mixed bipolar I disorder F31.62 [place] [id number] [place] [address] 38337- 0149 Sep, Hypokalemia E87.6 [place] [id number] [place] [address] 47092- 4665 Sep, [place] [id number] [place] [address] 36966- 8108 Sep, Upper respiratory tract infection, unspecified type J06.9 [facility] [id number] [place] [address] 91244- 0829 Aug, [place] [address] 56984- 1043 Aug, Dysuria R30.0 [facility] [address] [address] 9106 Aug, [facility] [address] [address]- 6774 Jul, [facility] [address] [address]- 9488 Jul, [facility] [id number] [place] [address] 09185- 2824 Jul, [facility] [id number] [place] [address] 25471- 4705 Jul, [facility] [id number] [place] [address] 05379- 3009 Jun, [facility] [id number] [address]- 8785 Jun, [facility] [id number] [place] [address] 06805- 4236 Jun, [facility] [address], [place] [address]- 6424 May, [facility] [address], [place] [address]- 2416 May, Bipolar I disorder, most recent episode (or current) mixed, moderate 296.62 [facility] [address] [address]- 6807 16 May, 2015 [facility] [address], [place] [address]- 7381 May, Bipolar I disorder, most recent episode (or current) mixed, moderate 296.62 and Major depressive disorder, recurrent episode, severe, specified as with psychotic behavior 296.34 [facility] [address], [place] [address]- 4496 02 May, 2015 Bipolar I disorder, most recent episode (or current) mixed, moderate 296.62 [facility] [address], [place] [address]- 3608 May, [facility] [id number] [place] [address] 24577- 6514 Apr, [facility] [id number] [place] [address] 62810- 9378 Apr, [facility] [id number] [place] [address] 46188- 5256 Apr, Unspecified disorder of kidney and ureter 593.9 and Diabetes mellitus type 2, uncontrolled 250.02 [facility] [id number] [place] [address] 86699- 6635 Apr, [facility] [id number] [place] [address] 91430- 8284 Apr, [facility] [id number] [place] [address] 66585- 8379 Apr, [facility] [id number] [place] [address] 76736- 3494 Apr, [facility] [id number] [place] [address] 35149- 5807 Apr, Diabetes mellitus type II, uncontrolled 250.02 [facility] [address], [place] [address]- 4921 Apr, [facility] [id number] [place] [address] 61726- 7773 Mar, [facility] [address], [place] [address]- 9951 Mar, [facility] [id number] [place] [address] 32022- 1290 Mar, [facility] [address], [place] [address]- 0273 Mar, Major depressive disorder, recurrent episode, severe, specified as with psychotic behavior 296.34 and Bipolar I disorder, most recent episode (or current) mixed, moderate 296.62 [facility] [id number] [place] [address] 55126- 9643 Mar, Diabetes 250.00 ; Anuria 788.5 ; Nausea and vomiting 787.01 and Diarrhea 787.91 [facility] [id number] [place] [address] 23414- 8353 Mar, Diabetes 250.00 [facility] [id number] [place] [address] 56843- 1254 Mar, [facility] [id number] [place] [address] 32965- 4840 Mar, Diabetes 250.00 [facility] [id number] [place] [address] 45905- 5730 Mar, [facility] [id number] [place] [address] 02255- 9238 Mar, [facility] [id number] [place] [address] 04015- 4082 Mar, [facility] [id number] [place] [address] 74181- 4623 Mar, [facility] [id number] [place] [address] 80210- 7318 Mar, Bipolar I disorder, most recent episode (or current) mixed, moderate 296.62 and Major depressive disorder, recurrent episode, severe, specified as with psychotic behavior 296.34 [facility] [id number] [place] [address] 89399- 7550 Mar, Magnesium deficiency 275.2 ; Hypokalemia 276.8 ; Nausea & vomiting 787.01 and Diabetes mellitus type 2, uncontrolled 250.02 [facility] [id number] [place] [address] 41585- 4333 Feb, [facility] [id number] [place] [address] 05697- 1885 Feb, Bipolar I disorder, most recent episode (or current) mixed, moderate 296.62 [facility] [id number] [place] [address] 92577- 9710 Feb, Nausea and vomiting 787.01 ; Left elbow pain 719.42 ; Anuria 788.5 and Diabetes 250.00 [facility] [id number] [place] [address] 31305- 3532 Feb, [facility] [address] 33043- 1769 Feb, Hypopotassemia 276.8 and Hypokalemia 276.8 [place] [id number] [place] [address] 472308- 5966 Feb, Hypopotassemia 276.8 and Hypokalemia 276.8 [place] [id number] [place] [address] 85403- 6822 Feb, Seborrheic keratoses 702.19 [place] [id number] [place] [address] 54754- 1739 Feb, Hypopotassemia 276.8 and Low magnesium levels 275.2 [place] [id number] [place] [address] 19336- 8366 January, [place] [id number] [place] [address] 35798- 4913 January, [place] [id number] [place] [address] 98220- 6524 January, [facility] [id number] [place] [address] 95206- 1695 January, Scalp lesion 709.9 [place] [id number] [place] [address] 49430- 1407 January, [facility] [id number] [place] [address] [id number]- 5565 Dec, Tear of medial cartilage or meniscus of knee, current 836.0 and 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 [facility] [address] [id number] [place] [address] 2549 Dec, [facility] [place] [facility] [address] [id number] [place] [address] 2546 29 Dec, 2014 [facility] [place] [facility] [address] [facility] [id number] [place] [address] 2546 28 Dec, 2014 Squamous cell carcinoma, 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 [facility] [place] [facility] [address] [id number] [place] [address]- 5806 14 Dec, 2014 [facility] [place] [facility] [address] [id number] [place] [address]- 4954 Dec, [facility] [place] [facility] [address] [facility] [id number] [place] [address]- 8387 Nov, [facility] [place] [facility] [address] [facility] [id number] [place] [address]- 4027 Nov, [facility] [place] [facility] [address] [id number] [place] [address]- 2196 Nov, [facility] [place] [facility] [address] [id number] [place] [address]- 0990 Nov, [facility] [place] [facility] [address] [facility] [id number] [place] [address]- 1150 Nov, [facility] [place] [facility] [address] [facility] [id number] [place] [address]- 7872 Nov, [facility] [place] [facility] [address] [id number] [place] [address]- 7772 Nov, [facility] [place] [facility] [address] [id number] [place] [address] 2546 Nov, [facility] [place] [facility] [address] [facility] [id number] [place] [address]- 0374 Nov, [facility] [place] [facility] [address] [facility] [id number] [place] 0714 Nov, [facility] [place] [facility] [address] [facility] [id number] [place] [address]- 7970 Nov, [facility] [place] [facility] [address] [id number] [place] [address]- 0162 Nov, [facility] [place] [facility] [address] [id number] [place] [address]- 8929 Oct, 2014 [facility] [place] [facility] [address] [id number] [place] [address]- 1524 Oct, 2014 [facility] [place] [facility] [address] [id number] [place] [address]- 2649 Oct, 2014 [facility] [place] [facility] [address] [id number] [place] [address]- 2399 Oct, 2014 [facility] [place] [facility] [address] [facility] [id number] [place] [address]- 2283 Oct, 2014 [facility] [place] [facility] [address] [id number] [place] [address]- 0947 Oct, 2014 [facility] [place] [facility] [address] [id number] [place] [address]- 6922 Oct, 2014 [facility] [place] [facility] [address] [facility] [id number] [place] [address]- 1724 Oct, [facility] [place] [facility] [address] [facility] [id number] [place] [address]- 1192 Oct, [facility] [place] [facility] [address] [facility] [id number] [place] [address]- 9399 Sep, [facility] [place] [facility] [address] [id number] [place] [address]- 0134 Sep, [facility] [place] [facility] [address] [id number] [place] [address]- 9178 Sep, [facility] [place] [facility] [address] [id number] [place] [address]- 2791 Sep, [facility] [place] [facility] [address] [facility] [id number] [place] [address]- 4535 Sep, [facility] [place] [facility] [address] [id number] [place] [address]- 7117 Sep, [facility] [place] [facility] [address] [id number] [place] [address]- 1836 Sep, [facility] [place] [facility] [address] [id number] [place] [address]- 3192 Sep, [facility] [place] [facility] [address] [id number] [place] [address]- 4687 Sep, [facility] [place] [facility] [address] [id number] [place] [address]- 1876 Sep, [facility] [place] [facility] [address] [id number] [place] [address]- 2053 Sep, [facility] [place] [facility] [address] [id number] [place] [address]- 9852 Sep, [facility] [place] [facility] [address] [id number] [place] [address]- 5601 Sep, [facility] [place] [facility] [address] [id number] [place] [address]- 3433 Sep, [facility] [place] [facility] [address] [id number] [place] [address]- 0572 Sep, [facility] [place] [facility] [address] [id number] [address]- 4128 Sep, [facility] [place] [facility] [address] [id number], [place] [address]- 9972 Aug, [facility] [place] [facility] [address] [id number] [place] [address]- 8943 Aug, [facility] [place] [facility] [address] [id number] [place] [address]- 0615 Aug, [facility] [place] [facility] [address] [id number] [place] [address]- 0020 Aug, [facility] [place] [facility] [address] [id number] [place] [address]- 9888 Aug, [facility] [address] [id number] [place] [address]- 1597 Aug, [facility] [address] [id number] [place] [address]- 3020 Aug, [facility] [address] [id number] [place] 7840 Aug, [facility] [address] [id number] [place] [address]- 5140 Aug, [facility] [address] [id number] [place] [address]- 9192 Aug, [facility] [address] [facility] [id number] [place] [address]- 7039 Aug, [facility] [address] [place] [id number] Aug, [facility] [address] [id number] [place] [address]- 1644 Aug, [facility] [address] [id number] [place] [address]- 7871 Aug, [facility] [address] [facility] [id number] [place] [address]- 4920 Aug, [facility] [address] [id number] [place] [address]- 9819 Aug, [facility] [address] [id number] [place] [address]- 4182 Aug, [facility] [address] [id number] [place] [address]- 0155 Aug, [facility] [address] [id number] [place] [address]- 3930 Aug, [facility] [address] [facility] [id number] [place] 2087 Aug, [facility] [place] [facility] [address] [id number] [place] [address]- 7533 08 Aug, 2014 [facility] [place] [facility] [address] [id number] [place] [address]- 2132 Aug, [facility] [place] [facility] [address] [id number] [place] [address]- 0955 Aug, [facility] [place] [facility] [address] [id number] [place] [address]- 8840 Aug, [facility] [place] [facility] [address] [id number] [place] [address]- 0629 Aug, [facility] [place] [facility] [address] [id number] [place] [address]- 5932 Aug, [facility] [place] [facility] [address] [id number] [place] [address]- 9231 Aug, [facility] [place] [facility] [address] [id number] [place] [address]- 1955 Aug, [facility] [place] [facility] [address] [id number] [place] 0606 Aug, [facility] [place] [facility] [address] [id number] [place] [address]- 8515 Aug, [facility] [place] [facility] [address] [id number] [place] [address]- 8889 Jul, [facility] [place] [facility] [address] [id number] [place] [address]- 8233 Jul, [facility] [place] [facility] [address] [id number] [place] [address]- 9877 Jul, [facility] [place] [facility] [address] [id number] [place] [address]- 5528 Jul, [facility] [place] [facility] [address] [id number] [place] [address]- 1164 Jul, [facility] [place] [facility] [address] [id number] [place] [address]- 3636 Jul, [facility] [place] [facility] [address] [id number] [place] [address]- 8307 Jul, [facility] [place] [facility] [address] [id number] [place] [address]- 3487 Jul, [facility] [place] [facility] [address] [id number] [place] [address]- 0343 Jul, [facility] [place] [facility] [address] [id number] [place] [address]- 8606 Jul, [facility] [place] [facility] [address] [id number] [place] [address]- 0265 Jun, [facility] [place] [facility] [address] [id number] [place] [address]- 9787 Jun, [facility] [place] [facility] [address] [id number] [place] [address]- 5257 Jun, [facility] [place] [facility] [address] [id number], [place] [address]- 8117 Jun, [facility] [place] [facility] [address] [id number] [place] [address]- 5240 Jun, [facility] [place] [facility] [address] [id number][place] [address]- 2511 Jun, [facility] [place] [facility] [address] [id number], [place] [address]- 8153 Jun, [facility] [place] [facility] [address] [id number], [place] [address]- 9465 Jun, [facility] [place] [facility] [address] [id number] [place] [address]- 5036 Jun, [facility] [place] [facility] [address] [id number], [place] [address]- 5956 Jun, [facility] [place] [facility] [address] [id number] [place] [address]- 7470 May, [facility] [place] [facility] [address] [id number] [place] [address]- 5778 29 Sep, 2013 [facility] [place] [facility] [address] [id number] [place] [address] 2546 26 Sep, 2013 [facility] [place] [facility] [address] [id number] [place] [address] 2546 26 Sep, 2013 [facility] [place] [facility] [address] [id number] [place] [address] 2546 17 Sep, 2013 [facility] [place] [facility] [address] [id number] [place] [address] 2546 17 Sep, 2013 [facility] [place] [facility] [address] [id number] [place] [address] 2546 15 Sep, 2013 [facility] [place] [facility] [address] [id number] [place] [address] 2546 15 May, 2013 [facility] [place] [facility] [address] [id number] [place] [address] 2543 15 May, 2013 [facility] [place] [facility] [address] [id number] [place] [address] 2545 15 Sep, 2013 [facility] [place] [facility] [address] [id number] [place] [address] 2546 10 May, 2013 [facility] [place] [facility] [address] [id number] [place] [address]- 2545 10 May, 2013 [facility] [place] [facility] [address] [id number] [place] [address] 2546 09 Sep, 2013 [facility] [place] [facility] [address] [id number] [place] [address] 2542 09 Sep, 2013 [facility] [place] [facility] [address] [id number] [place] [address] 2546 04 May, 2013 [facility] [place] [facility] [address] [id number] [place] [address] 04 May, 2013 [facility] [place] [facility] [address] [id number] [place] [address] 30 Apr, 2014 [facility] [place] [facility] [address] [id number] [place] [address] Apr, [facility] [place] [facility] [address] [id number] [place] [address] Apr, [facility] [place] [facility] [address] [id number] [place] [address] Apr, [facility] [place] [facility] [address] [id number] [place] [address] Apr, [facility] [place] [facility] [address] [id number] [place] [address] Apr, [facility] [place] [facility] [address] [id number] [place] [address] Apr, [facility] [place] [facility] [address] [id number] [place] [address] Apr, [facility] [place] [facility] [address] [id number] [place] [address] Apr, [facility] [place] [facility] [address] [id number] [place] [address] Apr, [facility] [place] [facility] [address] [id number] [place] [address] 40[address] Apr, [facility] [place] [facility] [address] [id number] [place] [address] Apr, [facility] [place] [facility] [address] [id number] [place] [address] Apr, [facility] [place] [facility] [address] [id number] [place] [address] Apr, [facility] [place] [facility] [address] [id number] [place] [address] Apr, [facility] [place] [facility] [address] [id number] [place] [address] Mar, [facility] [place] [facility] [address] [id number] [place] [address] Mar, 2013 [facility] [place] [facility] [address] [id number] [place] [address]- [address] Mar, 2013 [facility] [place] [facility] [address] [id number] [place] [address] Mar, 2013 [facility] [place] [facility] [address] [id number] [place] [address] Mar, 2013 [facility] [place] [facility] [address] [id number] [place] [address] Mar, 2013 [facility] [place] [facility] [address] [id number] [place] [address] Mar, [facility] [place] [facility] [address] [id number] [place] [address] Mar, 2013 [facility] [place] [facility] [address] [id number] [place] [address] Mar, [facility] [place] [facility] [address] [id number] [place] [address] Mar, 2013 [facility] [place] [facility] [address] [id number] [place] [address] Mar, 2013 [facility] [place] [facility] [address] [id number] [place] [address] Mar, 2013 [facility] [place] [facility] [address] [id number] [place] [address] Mar, 2013 [facility] [place] [facility] [address] [id number] [place] [address]- [address] Mar, 2013 [facility] [place] [facility] [address] [id number] [place] [address] Mar, 2013 [facility] [place] [facility] [address] [id number] [place] [address]- [address] Mar, 2013 [facility] [place] [facility] [address] [id number] [place] [address] [address] Mar, 2013 [facility] [place] [facility] [address] [id number] [place] [address] Mar, [facility] [place] [facility] [address] [id number] [place] [address] Feb, [facility] [place] [facility] [address] [id number] [place] [address] Feb, [facility] [place] [facility] [address] [id number] [place] [address] Feb, [facility] [place] [facility] [address] [id number] [place] [address] Feb, [facility] [place] [facility] [address] [id number] [place] [address] Feb, [facility] [place] [facility] [address] [id number] [place] [address] Feb, [facility] [place] [facility] [address] [id number] [place] [address]- [address] Feb, [facility] [place] [facility] [address] [id number] [place] [address]- 73[address] Feb, [facility] [place] [facility] [address] [id number] [place] [address] Feb, [facility] [place] [facility] [address] [id number] [place] [address] Feb, [facility] [place] [facility] [address] [id number] [place] [address]- [address] Feb, [facility] [place] [facility] [address] [id number] [place] [address]- [address] Feb, [facility] [place] [facility] [address] [id number] [place] [address] Feb, [facility] [place] [facility] [address] [id number] [place] [address]- 73[address] Feb, [facility] [place] [facility] [address] [id number] [place] [address]- [address] January, [facility] [address] [id number] [place] [address] January, [facility] [place] [facility] [address] [id number] [place] [address] January, [facility] [place] [facility] [address] [id number] [place] [address] January, [facility] [place] [facility] [address] [id number] [place] [address] January, [facility] [place] [facility] [address] [id number] [place] [address] January, [facility] [place] [facility] [address] [id number] [place] [address]- [address] January, [facility] [place] [facility] [address] [id number] [place] [address] January, [facility] [place] [facility] [address] [id number] [place] [address] January, [facility] [place] [facility] [address] [id number] [place] [address] January, [facility] [facility] [address] [id number] [place] [address] January, [facility] [address] [id number] [place] [address] 379[address] January, [facility] [place] [facility] [address] [id number] [place] [address] 76[address] January, [facility] [place] [facility] [address] [id number] [place] [address] 3[address] January, [facility] [place] [facility] [address] [id number] [place] [address]- 4776 Dec, [facility] [place] [facility] [address] [id number] [place] [address] 3963 Dec, [facility] [place] [facility] [address] [id number] [place] [address] 4921 Dec, [facility] [place] [facility] [address] [id number] [place] [address] 4329 Dec, [facility] [place] [facility] [address] [id number] [place] [address]- 9394 Dec, [facility] [place] [facility] [address] [id number] [place] [address]- 5266 Dec, [facility] [place] [facility] [address] [id number] [place] [address]- 7111 Dec, [facility] [place] [facility] [address] [id number] [place] [address]- 3358 Dec, [facility] [place] [facility] [address] [id number] [place] [address]- 8882 Dec, [facility] [place] [facility] [address] [id number] [place] [address]- 3707 Dec, [facility] [place] [facility] [address] [id number] [place] [address] 3107 Nov, [facility] [place] [facility] [address] [id number] [place] [address]- 3866 Nov, [facility] [place] [facility] [address] [id number] [place] [address]- 0370 Nov, [facility] [place] [facility] [address] [id number] [place] [address]- 1406 Nov, [facility] [place] [facility] [address] [id number] [place] [address]- 2885 Nov, [facility] [place] [facility] [address] [id number] [place] [address]- 0927 Nov, [facility] [place] [facility] [address] [id number] [place] [address]- 6140 Nov, [facility] [place] [facility] [address] [facility] [id number] [place] [address]- 9341 Nov, [facility] [place] [facility] [address] [id number] [place] [address]- 7571 Nov, [facility] [place] [facility] [address] [id number] [place] [address]- 7335 Nov, [facility] [place] [facility] [address] [id number] [place] [address]- 0616 Oct, [facility] [place] [facility] [address] [id number] [place] [address]- 2760 Oct, [facility] [place] [facility] [address] [id number] [place] [address]- 9985 Oct, [facility] [place] [facility] [address] [id number] [place] [address]- 6676 Oct, [facility] [address] [facility] [id number] [place] [address]- 1980 Oct, [facility] [place] [facility] [address] [id number] [place] [address]- 9451 Oct, [facility] [place] [facility] [address] [id number] [place] [address]- 3894 Oct, [facility] [place] [facility] [address] [facility] [id number] [place] [address]- 4754 Oct, [facility] [place] [facility] [address] [facility] [id number] [place] [address]- 2560 Oct, [facility] [address] [id number] [place] [address]- 6933 Oct, [facility] [address] [id number] [place] [address]- 1171 Oct, [facility] [address] [id number] [place] [address]- 3331 Oct, [facility] [address] [facility] [id number] [place] [address]- 2096 Oct, [facility] [place] [facility] [address] [id number] [place] [address]- 2580 Oct, [facility] [address] [id number] [place] [address]- 3548 Sep, [facility] [address] [id number] [place] [address]- 8252 Sep, [facility] [address] [id number] [place] [address]- 4197 15 Sep, 2013 [facility] [address] [id number] [place] [address]- 9373 15 Sep, 2013 [facility] [address] [id number] [place] [address]- 0364 Sep, [facility] [address] [id number] [place] [address]- 3412 Sep, [facility] [address] [id number] [place] [address]- 4603 Sep, [facility] [address] [id number] [place] [address]- 3771 Sep, [facility] [address] [id number] [place] [address]- 9765 Sep, [facility] [address] [id number] [place] [address]- 9518 Sep, [facility] [address] [id number] [place] [address]- 7636 Aug, [facility] [address] [id number] [place] [address]- 3836 Aug, [facility] [address] [id number] [place] [address]- 5395 Jul, [facility] [address] [id number] [place] [address]- 9527 Jul, [facility] [address] [id number] [place] [address]- 9383 Jul, [facility] [address] [id number] [place] [address]- 0981 Jul, [facility] [address] [id number] [place] [address]- 5715 Jul, [facility] [address] [id number] [place] [address]- 5160 Jul, [facility] [address] [id number] [place] [address]- 2061 Jul, [facility] [address] [id number] [place] [address]- 5836 Jul, [facility] [address] [id number] [place] [address] 1909 Jul, [facility] [address] [id number] [place] [address]- 9970 Jul, [facility] [address] [id number] [place] [address]- 5257 Jul, [facility] [address] [id number] [place] [address]- 1249 Jul, [facility] [address] [id number] [place] [address]- 2698 Jul, [facility] [address] [id number] [place] [address]- 6838 Jul, [facility] [address] [id number] [address] 1993 Jul, [facility] [address] [id number] [place] [address]- 8401 Jul, [facility] [address] [id number] [place] [address]- 2227 Jul, [facility] [address] [id number] [place] [address]- 0088 Jul, [facility] [address] [id number][place] [address]- 1567 Jul, [facility] [address] [id number] [place] [address] Jun, 2012 [facility] [address] [id number] [place] [address]- 7972 Jun, 2012 [facility] [address] [id number] [place] [address]- 8977 Jun, 2012 [facility] [address] [id number] [place] [address]- 7585 Jun, 2012 [facility] [address] [id number] [place] Jun, 2012 [facility] [address] [id number] [place] [address]- 8948 Jun, 2012 [facility] [address] [id number] [place] [address]- 8627 Jun, 2012 [facility] [address] [id number] [place] [address]- 8145 10 Jun, 2013 [facility] [address] [id number][place] [address]- 2195 Jun, [facility] [address] [id number] [place] [address]- 5776 Jun, [facility] [address] [id number], [place] [address]- 2565 Jun, [facility] [address] [id number][place] [address]- 0963 26 May, 2012 [facility] [address] [id number] [place] [address]- 6121 25 Sep, 2012 [facility] [address] [id number] [place] [address]44 19 Sep, 2012 [facility] [address] [id number] [place] 17 Sep, 2012 [facility] [address] [id number] [place] [address]- 8920 11 May, 2012 [facility] [address] [id number] [place] [address]- 8461 10 May, 2013 [facility] [address] [id number] [place] [address]- 2496 May, [facility] [address] [id number] [place] [address]- 7460 05 May, 2013 [facility] [address] [id number] [place] [address]- 9974 Apr, [facility] [address] [id number] [place] [address]- 7760 Apr, [facility] [address] [id number] [place] [address]- 6808 Apr, [facility] [address] [id number] [place] [address]- 6580 Apr, [facility] [address] [id number] [place] [address]- 2055 Apr, [facility] [address] [id number] [place] [address]- 6235 Mar, [facility] [address] [id number] [place] [address]- 3337 Mar, [facility] [address] [id number] [place] [address]- 4704 Mar, [facility] [address] [id number] [place] [address]- 5117 Mar, [facility] [address] [id number] [place] [address]- 3779 Mar, [facility] [address] [id number] [place] [address]- 3976 Mar, [facility] [address] [id number] [place] [address]- 7110 Mar, [facility] [address] [id number] [place] [address]- 2632 Mar, [facility] [address] [id number] [place] [address]- 9611 Feb, [facility] [address] [id number] [place] [address]- 7190 Feb, [facility] [address] [id number] [place] [address]- 8290 January, [facility] [address] [id number] [place] [address]- 9272 January, [facility] [address] [id number] [place] [address]- 5054 Dec, [facility] [address] [id number] [place] [address]- 6465 Dec, [facility] [address] [id number] [place] [address]- 4569 Nov, [facility] [address] [id number] [place] [address]- 2940 Nov, [facility] [address] [id number] [place] [address]- 6021 Nov, [facility] [address] [id number] [place] [address]- 0845 Nov, [facility] [address] [id number] [place] [address]- 7826 Oct, [facility] [address] [id number] [place] [address]- 4507 Oct, [facility] [address] [id number] [place] [address]- 1412 Oct, [facility] [address] [id number] [place] [address]- 8146 Oct, [facility] [address] [id number] [place] [address]- 9121 16 Oct, 2012 [facility] [address] [id number] [place] [address]- 6166 14 Oct, 2012 [facility] [address] [id number] [place] [address] 2546 08 Oct, 2012 [facility] [address] [id number] [place] [address]- 9446 07 Oct, 2012 [facility] [address] [id number] [place] [address] 2548 03 Oct, 2012 [facility] [address] [id number] [place] [address]- 2429 30 Sep, 2012 [facility] [address] [id number] [place] [address]- 0359 Sep, [facility] [address] [id number] [place] [address]- 9885 Sep, [facility] [address] [id number] [place] [address]- 2966 Sep, [facility] [address] [id number] [place] [address]- 0833 Sep, [facility] [address] [id number] [place] [address]- 3250 Sep, [facility] [address] [id number] [place] [address]- 2775 Sep, [facility] [address] [id number] [place] [address]- 3594 Sep, [facility] [address] [id number] [place] [address]- 8747 Aug, [facility] [address] [id number] [place] [address]- 5336 Aug, [facility] [address] [id number] [place] [address]- 3831 Aug, [facility] [address] [id number] [place] [address]- 9448 Aug, [facility] [address] [id number] [place] [address]- 0211 Aug, [facility] [address] [id number] [place] [address]- 3754 Aug, [facility] [address] [id number] [place] [address]- 0024 Aug, [facility] [address] [id number] [place] [address]- 2297 Aug, [facility] [place] [address] [id number] [place] [address]- 0435 Jul, [facility] [place] [facility] [address] [id number] [place] [address]- 4908 Jul, [facility] [address] [id number], [place] [address]- 3048 Jul, [facility] [place] [facility] [address] [id number] [place] [address]- 3065 Jul, [facility] [place] [facility] [address] [id number], [place] [address]- 5001 Jul, [facility] [address] [id number], [place] [address]- 5406 Jul, [facility] [place] [facility] [address] [id number], [place] [address]- 7469 Jun, [facility] [place] [facility] [address] [id number] [place] [address]- 3585 Jun, [facility] [place] [facility] [address] [id number], [place] [address]- 3443 Jun, [facility] [place] [facility] [address] [id number] [place] [address]- 1257 Jun, [facility] [place] [facility] [address] [id number] [place] [address]- 2781 Jun, [facility] [place] [facility] [address] [id number] [place] [address]- 4155 19 Jun, 2012 [facility] [place] [facility] [address] [id number] [place] [address]- 6587 19 Jun, 2012 [facility] [place] [facility] [address] [id number] [place] [address]- 7196 10 Jun, 2012 [facility] [place] [facility] [address] [id number] [place] [address]- 0736 10 Jun, 2012 [facility] [place] [facility] [address] [id number] [place] [address]- 8796 26 May, 2012 [facility] [place] [facility] [address] [id number] [place] [address]- 3344 24 May, 2012 [facility] [place] [facility] [address] [id number] [place] [address]- 8466 18 May, 2012 [facility] [place] [facility] [address] [id number] [place] [address]- 9136 30 Apr, 2012 [facility] [place] [facility] [address] [id number] [place] [address]- 6991 29 Apr, 2012 [facility] [place] [facility] [address] [id number] [place] [address]- 2423 Apr, [facility] [place] [facility] [address] [id number] [place] [address]- 8130 14 Apr, 2012 [facility] [place] [facility] [address] [id number] [place] [address]- 3347 Apr, [facility] [place] [facility] [address] [id number] [place] [address]- 9287 Apr, [facility] [place] [facility] [address] [id number] [place] [address]- 6654 Mar, [facility] [place] [facility] [address] [id number] [place] [address]- 7588 Mar, [facility] [place] [facility] [address] [id number] [place] [address]- 3023 Mar, [facility] [place] [facility] [address] [id number] [place] [address]- 7851 Mar, [facility] [place] [facility] [address] [id number] [place] [address]- 6151 Feb, [facility] [place] [facility] [address] [id number] [place] [address]- 1286 Feb, [facility] [place] [facility] [address] [id number] [place] [address]- 6091 Feb, [facility] [place] [facility] [address] [id number] [place] [address]- 0389 Feb, [facility] [place] [facility] [address] [id number] [place] [address]- 3744 Feb, [facility] [place] [facility] [address] [id number] [place] [address]- 0887 January, [facility] [place] [facility] [address] [id number] [place] [address]- 1675 January, [facility] [place] [facility] [address] [id number] [place] [address]- 2631 January, [facility] [place] [facility] [address] [id number] [place] [address]- 2357 January, [facility] [place] [facility] [address] [id number] [place] [address]- 3293 January, [facility] [place] [facility] [address] [id number] [place] [address]- 7941 January, [facility] [place] [facility] [address] [id number] [place] [address]- 4186 Dec, [facility] [place] [facility] [address] [id number] [place] [address]- 3871 Dec, [facility] [place] [facility] [address] [id number] [place] [address]- 9082 17 Dec, 2011 [facility] [place] [facility] [address] [id number] [place] [address]- 6757 09 Dec, 2011 [facility] [place] [facility] [address] [id number] [place] [address]- 7956 06 Dec, 2011 [facility] [place] [facility] [address] [facility] [id number] [place] [address]- 9526 27 Nov, 2011 [facility] [place] [facility] [address] [id number] [place] [address]- 6149 14 Nov, 2011 [facility] [place] [facility] [address] [id number] [place] [address]- 5169 Nov, [facility] [place] [facility] [address] [facility] [id number] [place] [address]- 7439 07 Nov, 2011 [facility] [place] [facility] [address] [facility] [id number] [place] [address]- 0329 29 Oct, 2011 [facility] [place] [facility] [address] [id number] [place] [address]- 5850 28 Oct, 2011 [facility] [place] [facility] [address] [id number] [place] [address]- 8523 24 Oct, 2011 [facility] [place] [facility] [address] [facility] [id number] [place] [address]- 9053 Oct, [facility] [place] [facility] [address] [facility] [id number] [place] [address]- 9965 08 Oct, 2011 [facility] [place] [facility] [address] [id number] [place] [address] Sep, [facility] [place] [facility] [address] [id number] [place] [address] 30 Sep, 2011 [facility] [place] [facility] [address] [id number] [place] [address] Sep, [facility] [place] [facility] [address] [facility] [id number] [place] [address] Sep, [facility] [place] [facility] [address] [id number] [place] [address] Sep, [facility] [place] [facility] [address] [id number] [place] [address] Sep, [facility] [place] [facility] [address] [id number] [place] [address] Aug, [facility] [place] [facility] [address] [id number] [place] [address] Aug, [facility] [place] [facility] [address] [id number] [place] [address] Aug, [facility] [place] [facility] [address] [id number] [place] [address] Jul, [facility] [place] [facility] [address] [id number] [place] [address] Jul, [facility] [place] [facility] [address] [id number] [place] [address] Jul, [facility] [place] [facility] [address] [id number] [place] [address] Jul, [facility] [place] [facility] [address] [id number] [place] [address] Jun, [facility] [place] [facility] [address] [id number] [place] [address] 284[address] Jun, [facility] [place] [facility] [address] [id number] [place] [address] Jun, [facility] [place] [facility] [address] [id number] [place] [address] Jun, [facility] [place] [facility] [address] [id number] [place] [address] Jun, [facility] [place] [facility] [address] [id number] [place] [address] Jun, [facility] [place] [facility] [address] [id number] [place] [address] 11 Mar, 2011 [facility] [address] [id number] [place] [address] 18 Dec, 2010 [facility] [place] [facility] [address] [id number] [place] [address] 11 Dec, 2010 [facility] [place] [facility] [address] [id number] [place] [address] 18 Nov, 2010 [facility] [place] [facility] [address] [id number] [place] [address] 16 Nov, 2010 [facility] [place] [facility] [address] [id number] [place] [address] 10 Sep, 2010 [facility] [place] [facility] [address] [id number] [place] [address] 31 Aug, 2010 [facility] [place] [facility] [address] [id number] [place] [address] 29 Aug, 2010 [facility] [place] [facility] [address] [id number] [place] [address] 49[address] 29 Aug, 2010 [facility] [place] [facility] [address] [id number] [place] [address] 29 Aug, 2010 [facility] [place] [facility] [address] [id number] [place] [address] 475[address] 27 Aug, 2010 [facility] [place] [facility] [address] [id number] [place] [address]244 14 Aug, 2010 [facility] [place] [facility] [address] [id number] [address] 08 Aug, 2010 [facility] [place] [facility] [address] [id number] [place] [address] 08 Aug, 2010 [facility] [place] [facility] [address] [id number] [place] [address] 07 Aug, 2010 [facility] [place] [facility] [address] [id number] [place] [address] 06 Aug, 2010 [facility] [place] [facility] [address] [id number] [place] [address] 115[address] Aug, [facility] [place] [facility] [address] [id number] [place] [address] Aug, [facility] [place] [facility] [address] [id number] [place] [address] Jul, [facility] [place] [facility] [address] [id number] [place] [address] 137[address] Jul, [facility] [place] [facility] [address] [id number] [place] [address] Jul, [facility] [place] [facility] [address] [id number] [place] [address] 88[address] Jul, [facility] [place] [facility] [address] [id number] [place] [address] Jul, [facility] [place] [facility] [address] [id number] [place] [address] Jul, [facility] [place] [facility] [address] [id number] [place] [address] Jun, [facility] [place] [facility] [address] [id number] [place] [address] Jun, [facility] [place] [facility] [address] [id number] [place] [address] Jun, [facility] [place] [facility] [address] [id number] [place] [address] 6[address] Jun, [facility] [place] [facility] [address] [id number] [place] [address] 25[address] Apr, [facility] [place] [facility] [address] [id number] [place] [address] Mar, [facility] [place] [facility] [address] [id number] [place] [address] Feb, [facility] [place] [facility] [address] [id number], [place] [address] January, [facility] [place] [facility] [address] [id number] [place] [address]164 15 Dec, 2009 [facility] [place] [facility] [address] [id number] [place] [address] Nov, [facility] [place] [facility] [address] [id number] [place] [address]261 Aug, [facility] [place] [facility] [address] [id number] [place] [address]- [address] Aug, [facility] [place] [facility] [address] [id number] [place] [address] 1023 Aug, [facility] [place] [facility] [address] [id number] [place] [address]- [address] Jul, [facility] [place] [facility] [address] [facility] [id number] [place] [address] Jul, [facility] [place] [facility] [address] [id number] [place] [address] Jul, [facility] [place] [facility] [address] [id number] [place] [address] 30 Jun, 2009 [facility] [place] [facility] [address] [id number] [place] [address]- 287[address] 29 Jun, 2009 [facility] [place] [facility] [address] [facility] [id number] [place] [address]- 55[address] Jun, [facility] [place] [facility] [address] [id number], [place] [address] Jun, [facility] [place] [facility] [address] [id number] [place] [address]- 2183 Jun, [facility] [place] [facility] [address] [id number] [place] [address]- 7[address] Jun, [facility] [place] [facility] [address] [id number], [place] [address] 17 Apr, 2009 [facility] [place] [facility] [address] [id number], [place] [address] Apr, [facility] [address] [facility] [id number] [place] [address] Feb, [facility] [address] [facility] [id number], [place] [address] January, [facility] [address] [facility] [id number] [place] [address] Dec, IMMUNIZATIONS No Known Immunizations SOCIAL HISTORY Never Assessed REASON FOR VISIT Controlled Med Refill 05/08/18 PLAN OF CARE VITAL SIGNS MEDICATIONS Medication Instructions Dosage Frequency Start Date End Date Duration Status Percocet 10-325 MG Orally 4 times a day 1 tablet as needed 6h Apr, 28 days Active RESULTS No Results PROCEDURES [...] obesity Medical History skin cancer-basal cell 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) Medical History Arthritis Medical History degenerative [...] (Left) 2000 Surgical History EGD ([facility]) 2009 Surgical History colonoscopy 2009 ([facility]), 2013 ([facility]) Surgical History heart 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 04/2014 Surgical History carotid US 05/2014 Surgical History resection of skin cancer from 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 early Hospitalization History hyperkalemia 10/2017 Hospitalization History fluid in lung
--- OUTSIDE RECORDS SUMMARY | 2018-08-08 13:49 | XMS REPORT ---
Author Author NOEMI WASHBURN Organization [facility] Address [address] [place] [address] Care Team Providers Care Board Layer Name Role Phone NOEMI WASHBURN Unavailable PROBLEMS Type Condition ICD9-CM Code CIS70-QS Code Onset Dates Condition Status SNOMED Code Problem Chronic lymphocytic leukemia C91.10 Active 85766570 Problem Lymphocytosis D72.820 Active 17553580 Problem Eye exam abnormal R93.8 Active 528174623 Problem Eustachian tube dysfunction, unspecified laterality H69.80 Active 41987704 Problem Essential hypertension I10 Active 37089507 Problem Dysuria R30.0 Active 92462356 Problem Diabetic polyneuropathy associated with type 2 diabetes mellitus E11.42 Active 95873202 Problem Cough R05 Active 74922724 Problem Polyneuropathy associated with underlying disease G63 Active 820840190 Problem Retinal edema H35.81 Active 8220380 Problem Bilateral primary osteoarthritis of knee M17.0 Active 075460476 Problem Primary osteoarthritis of right knee M17.11 Active [id number] Problem Pure hypercholesterolemia E78.00 Active 086559766 Problem DM neuro manif type II E11.49 Active 05341991 Problem Benign prostatic hyperplasia with lower urinary tract symptoms, unspecified morphology N40.1 Active 226556685 Problem Hypokalemia E87.6 Active 30935045 Problem 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 Active 412367752 Problem Anemia of chronic illness D63.8 Active 993955339 Problem Bipolar disorder, in partial remission, most recent episode depressed F31.75 Active 26925534 Problem Falling R29.6 Active 341439684 Problem Leukocytosis D72.829 Active 527609567 Problem Reactive airway disease J45.909 Active 689409217171 Problem Diabetes E11.9 Active 17913691 Problem Chronic pain G89.29 Active 38627730 Problem Anxiety F41.9 Active 98594994 Problem Morbid obesity E66.01 Active 937289752 Problem Bipolar I disorder, most recent episode (or current) mixed, moderate F31.62 Active 11878383 Problem Insomnia, unspecified type G47.00 Active 968919106 ALLERGIES Substance Reaction Event Type Date Status Breo Ellipta Tongue Swelling Drug Allergy Mar, Active ENCOUNTERS Encounter Location Date Diagnosis [facility] [id number] [place] [address] 54860- 2338 Jun, [facility] [address] 28167- 2243 Jun, [facility] [id number] [place] [address] 51457- 5199 Jun, [place] [address] 86134- 1655 May, Chronic pain G89.29 [place] [id number] [place] [address] 24716- 4712 Apr, [place] [address] 02077- 7549 Apr, Chronic pain G89.29 [facility] [id number] [place] [address] 44720- 8578 Apr, Primary osteoarthritis of right knee M17.11 [place] [id number] [place] [address] 26223- 0937 Mar, [place] [id number] [place] [address] 61451- 7046 Mar, BMI 50.0-59.9, adult Z68.43 and Bipolar disorder, in partial remission, most recent episode depressed F31.75 [place] [id number] [place] [address] 18389- 0138 Mar, Diabetes E11.9 ; Pure hypercholesterolemia E78.00 ; Essential hypertension I10 ; Nausea with vomiting, unspecified R11.2 and Headache, unspecified headache type R51 [facility] [id number] [place] [address] 58845- 4175 Mar, Bipolar I disorder, most recent episode (or current) mixed, moderate F31.62 [facility] [address] [address] 8361 Mar, Bipolar I disorder, most recent episode (or current) mixed, moderate F31.62 [facility] [address] [address]- 1494 Mar, Chronic pain G89.29 [facility] [id number] [place] [address] 43409- 2967 Mar, Bipolar I disorder, most recent episode (or current) mixed, moderate F31.62 [place] [id number] [place] [address] 52752- 6518 Feb, Bipolar I disorder, most recent episode (or current) mixed, moderate F31.62 [place] [id number] [place] [address] 53866- 8980 Feb, Chronic pain G89.29 [facility] [id number] [place] [address] 04281- 2563 Feb, Decubitus ulcer of right foot, stage 3 L89.893 and BMI 50.0- 59.9, adult Z68.43 [facility] [address] [address]- 7058 Feb, Bipolar I disorder, most recent episode (or current) mixed, moderate F31.62 [facility] [address] [address]- 2587 Feb, [facility] [id number] [place] [address] 47692- 9108 January, [facility] [id number] [place] [address] 95677- 7218 January, Chronic pain G89.29 [facility] [address] [address]- 7092 January, Bipolar I disorder, most recent episode (or current) mixed, moderate F31.62 [place] [id number] [place] [address] 37550- 7666 January, Bipolar I disorder, most recent episode (or current) mixed, moderate F31.62 [facility] [id number] [place] [address] 92406- 9089 Dec, Bipolar I disorder, most recent episode (or current) mixed, moderate F31.62 and BMI 50.0-59.9, adult Z68.43 [place] [id number] [place] [address] 86531- 8604 Dec, Bipolar I disorder, most recent episode (or current) mixed, moderate F31.62 [place] [id number] [place] [address] 91559- 7372 Dec, Chronic pain G89.29 [place] [address] 48690- 0840 Dec, DM neuro manif type II E11.49 ; Right flank pain R10.9 ; [employer] 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 Z79.891 ; Encounter for medication monitoring Z51.81 and BMI 50.0-59.9, adult Z68.43 [place] [id number] [place] [address] 46060- 4841 Dec, Bipolar I disorder, most recent episode (or current) mixed, moderate F31.62 [place] [id number] [place] [address] 53208- 6437 Nov, Bipolar I disorder, most recent episode (or current) mixed, moderate F31.62 [place] [id number] [place] [address] 46684- 3672 Nov, Chronic pain G89.29 [place] [id number] [place] [address] 13494- 2575 Nov, Bipolar I disorder, most recent episode (or current) mixed, moderate F31.62 [place] [id number] [place] [address] 52777- 3194 Nov, Hypokalemia E87.6 [place] [address] 905174- 6968 Nov, Bipolar I disorder, most recent episode (or current) mixed, moderate F31.62 [place] [address] 38890- 8498 Oct, Chronic pain G89.29 [place] [address] 594797- 6148 Oct, BMI 50.0-59.9, adult Z68.43 and Bipolar I disorder, most recent episode (or current) mixed, moderate F31.62 [place] [id number] [place] [address] 43569- 9624 Oct, Bipolar I disorder, most recent episode (or current) mixed, moderate F31.62 [place] [address] 88988- 5324 Oct, [place] [address] 01714- 7676 Oct, Hypokalemia E87.6 [place] [id number] [place] [address] 26780- 8464 Oct, DM neuro manif type II E11.49 [place] [address] 64229- 0071 Oct, Bipolar I disorder, most recent episode (or current) mixed, moderate F31.62 [place] [address] 54865- 9728 Oct, Bipolar I disorder, most recent episode (or current) mixed, moderate F31.62 [place] [address] 21296- 8388 14 Oct, 2017 Hyperkalemia E87.5 ; Falling R29.6 ; BMI 50.0-59.9, adult Z68.43 and Acute left ankle pain M25.572 [place] [id number] [place] [address] 88134- 7535 08 Oct, 2017 DM neuro manif type II E11.49 [place] [id number] [place] [address] 82358- 4158 Oct, [place] [address] 13522- 1801 Sep, Chronic pain G89.29 [place] [id number] [place] [address] 08362- 9523 Sep, [place] [address] 91746- 2172 Sep, Bilateral primary osteoarthritis of knee M17.[address] 69207- 8484 Sep, Generalized edema R60.1 [place] [id number] [place] [address] 80438- 1844 Sep, Bipolar I disorder, most recent episode (or current) mixed, moderate F31.62 [place] [id number] [place] [address] 84804- 1871 15 Sep, 2017 Hypoxia R09.02 ; Other hypervolemia E87.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 ; Anemia of chronic illness D63.8 and BMI 50.0- 59.9, adult Z68.43 [place] [id number] [place] [address] 37919- 4157 Sep, [place] [id number] [place] [address] 33808- 0837 Sep, Bipolar I disorder, most recent episode (or current) mixed, moderate F31.62 [place] [address] 71662- 3937 Aug, Chronic pain G89.29 [facility] [id number] [place] [address] 31676- 6567 Aug, Generalized edema R60.1 [facility] [id number] [place] [address] 80315- 4441 Aug, [facility] [id number] [place] [address] 144148- 8283 Aug, [facility] [id number] [place] [address] 54797- 0461 14 Aug, 2017 Bipolar I disorder, most recent episode (or current) mixed, moderate F31.62 [place] [id number] [place] [address] 96425- 4150 Aug, Bipolar I disorder, most recent episode (or current) mixed, moderate F31.62 [facility] [id number] [place] [address] 90981- 9923 Aug, Chronic pain G89.29 [facility] [id number] [place] [address] 53339- 4536 30 Jul, 2017 Bipolar I disorder, most recent episode (or current) mixed, moderate F31.62 [facility] [id number] [place] [address] 21378- 0914 Jul, Bipolar I disorder, most recent episode (or current) mixed, moderate F31.62 and BMI 60.0-69.9, adult Z68.44 [facility] [id number] [place] [address] 80356- 0369 16 Jul, 2017 Bipolar I disorder, most recent episode (or current) mixed, moderate F31.62 [facility] [id number] [place] [address] 65750- 0190 06 Jul, 2017 Chronic pain G89.29 [facility] [id number] [place] [address] 35702- 8694 02 Jul, 2017 Bipolar I disorder, most recent episode (or current) mixed, moderate F31.62 [facility] [address] [place] [address]- 1421 18 Jun, 2017 Polyneuropathy associated with underlying disease G63 and Diabetes E11.9 [facility] [address], [place] [address]- 6685 16 Jun, 2017 Bipolar I disorder, most recent episode (or current) mixed, moderate F31.62 [facility] [id number] [place] [address] 52504- 1529 09 Jun, 2017 Chronic pain G89.29 [facility] [id number] [place] [address] 74172- 0201 27 May, 2017 Bipolar I disorder, most recent episode (or current) mixed, moderate F31.62 [facility] [id number] [place] [address] 87794- 7650 21 May, 2017 Bipolar I disorder, most recent episode (or current) mixed, moderate F31.62 [facility] [address], [place] [address]- 0948 20 May, 2017 Diabetic polyneuropathy associated with type 2 diabetes mellitus E11.42 [facility] [address], [place] [address]- 3125 18 May, 2017 Bipolar I disorder, most recent episode (or current) mixed, moderate F31.62 [facility] [address] [place] [address]- 6800 13 May, 2017 Bipolar I disorder, most recent episode (or current) mixed, moderate F31.62 [facility] [address] [place] [address]- 3751 12 May, 2017 Chronic pain G89.29 [facility] [id number] [place] [address] 37119- 6379 Apr, Bipolar I disorder, most recent episode (or current) mixed, moderate F31.62 [facility] [id number] [place] [address] 57193- 1301 Apr, [facility] [id number] [place] [address] 43271- 5106 Apr, Chronic pain G89.29 and DM neuro manif type II E11.49 [facility] [id number] [place] [address] 19097- 2588 Apr, [facility] [id number] [place] [address] 158929- 8736 Apr, Bipolar I disorder, most recent episode (or current) mixed, moderate F31.62 [facility] [id number] [place] [address] 08594- 6552 Apr, Chronic pain G89.29 [facility] [id number] [place] [address] 27098- 3339 Apr, Iliotibial band syndrome, left M76.32 [facility] [id number] [place] [address] 43445- 5409 Apr, Bipolar I disorder, most recent episode (or current) mixed, moderate F31.62 [facility] [id number] [place] [address] 22349- 7183 Mar, Bipolar I disorder, most recent episode (or current) mixed, moderate F31.62 [facility] [id number] [place] [address] 13008- 4333 Mar, Bipolar I disorder, most recent episode (or current) mixed, moderate F31.62 [facility] [id number] [place] [address] 00766- 7861 Mar, [facility] [id number] [place] [address] 36726- 3928 Mar, Bipolar I disorder, most recent episode (or current) mixed, moderate F31.62 [facility] [id number] [place] [address] 21782- 0929 Mar, Chronic pain G89.29 [facility] [address] [address]- 3087 Mar, Bipolar I disorder, most recent episode (or current) mixed, moderate F31.62 [facility] [id number] [place] [address] 92259- 6827 Mar, Bipolar I disorder, most recent episode (or current) mixed, moderate F31.62 [place] [id number] [place] [address] 51531- 0131 Mar, Acute pain of left knee M25.562 ; Left hip pain M25.552 ; Generalized edema R60.1 and Tongue swelling R22.0 [place] [id number] [place] [address] 37932- 5977 Mar, [place] [id number] [place] [address] 17701- 1969 Feb, Chronic pain G89.29 [place] [id number] [place] [address] 42366- 5510 Feb, Diabetes E11.9 [facility] [id number] [place] [address] 79419- 6824 January, Chronic pain G89.29 [facility] [id number] [place] [address] 83372- 4772 January, [facility] [id number] [place] [address] 30370- 4996 January, Bipolar I disorder, most recent episode (or current) mixed, moderate F31.62 [facility] [id number] [place] [address] 91713- 5186 Dec, Bipolar I disorder, most recent episode (or current) mixed, moderate F31.62 [facility] [id number] [place] [address] 21376- 2642 Dec, Chronic pain G89.29 [facility] [id number] [place] [address] 45925- 5946 Dec, Bipolar I disorder, most recent episode (or current) mixed, moderate F31.62 [facility] [address], [place] [address]- 0293 Dec, Diabetes E11.9 ; Essential hypertension I10 ; Chronic pain G89.29 and Morbid obesity E66.01 [facility] [address], [place] [address]- 3479 Dec, [facility] [id number] [place] [address] 709617- 7332 Dec, Bipolar I disorder, most recent episode (or current) mixed, moderate F31.62 [facility] [id number] [place] [address] 91944- 9158 Dec, Bipolar I disorder, most recent episode (or current) mixed, moderate F31.62 [facility] [address] [address]- 1549 Nov, Chronic pain G89.29 [facility] [id number] [place] [address] 78054- 6413 Nov, Bipolar I disorder, most recent episode (or current) mixed, moderate F31.62 [facility] [address], [place] [address]- 7773 Nov, [facility] [address] [place] [address]- 0723 Nov, Bipolar I disorder, most recent episode (or current) mixed, moderate F31.62 [facility] [address], [place] [address]- 3045 Nov, Bipolar I disorder, most recent episode (or current) mixed, moderate F31.62 [facility] [id number] [place] [address] 92238- 1669 Nov, [facility] [address], [place] [address]- 0570 Nov, [facility] [id number] [address]- 7421 Nov, [facility] [id number] [place] [address] 44626- 6579 Oct, Chronic pain G89.29 [facility] [address] [place] [address] 37554- 1283 Oct, Bipolar I disorder, most recent episode (or current) mixed, moderate F31.62 [facility] [id number] [place] [address] 90678- 0251 Oct, [facility] [id number] [place] [address] 02022- 7022 Oct, Chronic pain G89.29 ; Diabetes E11.9 ; Anxiety F41.9 and 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 [facility] [id number] [place] [address] 71740- 8462 Oct, [facility] [id number] [place] [address] 70509- 1244 Oct, Diabetes E11.9 [facility] [id number] [place] [address] 14337- 6482 Oct, Bipolar I disorder, most recent episode (or current) mixed, moderate F31.62 [facility] [id number] [place] [address] 06350- 2550 Sep, Chronic pain G89.29 [facility] [id number] [place] [address] 40278- 1762 Sep, Chronic pain G89.29 [facility] [id number] [place] [address] 40126- 5928 Aug, Chronic pain G89.29 [facility] [id number] [place] [address] 67479- 4555 Jul, [facility] [id number] [place] [address] 02261- 4999 Jul, Diabetes E11.9 [facility] [id number] [place] [address] 85599- 6638 Jul, Chronic pain G89.29 [facility] [id number] [place], [place] [address]- 1895 Jul, Bipolar I disorder, most recent episode (or current) mixed, moderate F31.62 [place] [address] 57050- 8034 Jun, Bipolar I disorder, most recent episode (or current) mixed, moderate F31.62 [place] [address] 965041- 4855 Jun, [place] [address] 17014- 6476 Jun, Bipolar I disorder, most recent episode (or current) mixed, moderate F31.62 [place] [id number] [place] [address] 07089- 5080 30 May, 2016 Insomnia, unspecified type G47.00 [place] [address] 720453- 0253 May, Bipolar I disorder, most recent episode (or current) mixed, moderate F31.62 [place] [id number] [place] [address] 89083- 3113 14 May, 2016 [place] [address] 208074- 2392 08 May, 2016 Bipolar I disorder, most recent episode (or current) mixed, moderate F31.62 [place] [address] 23320- 8288 06 May, 2016 Diabetes E11.9 and Essential hypertension I10 [place] [address] [place] [id number] [place] [address] 73067- 7471 Apr, Chronic pain G89.29 [place] [address] [place] [address] Apr, Bipolar I disorder, most recent episode (or current) mixed, moderate F31.62 [place] [address] [place] [id number] [place] [address] 38642- 2920 Apr, [facility] [address] [place] [id number] [place] [address] 19876- 0988 Apr, [facility] [address] [place] [id number] [place] [address] 58450- 3666 Mar, Chronic pain G89.29 ; Headache, unspecified headache type R51 ; Neuropathy G62.9 ; Pain of right hip joint M25.551 and Essential hypertension I10 [place] [address] [place] [id number] [place] [address] 50441- 0238 Mar, Chronic pain G89.29 [place] [address] [place] [id number] [place] [address] 79869- 7479 Mar, Bipolar I disorder, most recent episode (or current) mixed, moderate F31.62 [place] [address] [place] [id number] [place] [address] 60756- 7655 Feb, Bipolar I disorder, most recent episode (or current) mixed, moderate F31.62 and Insomnia, unspecified type G47.00 [place] [id number] [place] [address] 13379- 9087 Feb, Chronic pain G89.29 [place] [address] [place] [id number] [place] [address] 43223- 0651 Feb, Bipolar I disorder, most recent episode (or current) mixed, moderate F31.62 [place] [id number] [place] [address] 30764- 4867 January, Bipolar I disorder, most recent episode (or current) mixed, moderate F31.62 [place] [id number] [place] [address] 17556- 5124 January, Chronic pain G89.29 [place] [address] [place] [id number] [place] [address] 59729- 4056 January, Chronic pain G89.29 and Essential hypertension I10 [facility] [address] 44045- 8161 January, Bipolar I disorder, most recent episode (or current) mixed, moderate F31.62 [facility] [address] 68167- 2067 Dec, [facility] [address] [place] [id number] [place] [address] 01501- 2150 Dec, [facility] [address] 45864- 7837 Dec, [facility] [address] [place] [id number] [place] [address] 31440- 2927 Dec, [facility] [address] 94869- 7719 Nov, Reactive airway disease J45.909 [facility] [id number] [place] [address] 95321- 0600 Nov, [facility] [id number] [place] [address] 07413- 5880 Nov, [facility] [id number] [place] [address] 78453- 3924 Nov, [facility] [id number] [place] [address] 65645- 5737 Nov, [facility] [id number] [place] [address] 44412- 9554 Nov, Onychomycosis B35.1 ; Hammertoe M20.40 ; Crocker or callus L84 and DM neuro manif type II E11.49 [facility] [id number] [place] [address] 32729- 2969 15 Nov, 2015 Chronic pain G89.29 ; Leukocytosis D72.829 and Diabetes E11.9 [facility] [id number] [place] [address] 89053- 5771 Nov, [facility] [id number] [place] [address] 29519- 3935 Oct, Bronchitis J40 [facility] [id number] [place] [address] 31370- 6280 Oct, [facility] [address] 35078- 5862 Oct, [facility] [address] 90889- 1222 Oct, Mastoiditis, unspecified laterality H70.90 and Type 2 diabetes mellitus with complication E11.8 [facility] [id number] [place] [address] 13773- 2564 Sep, [facility] [address] 39339- 6421 Sep, Dysuria R30.0 ; Cough R05 ; Benign prostatic hyperplasia with lower urinary tract symptoms, unspecified morphology N40.1 ; Hypokalemia E87.6 and Eustachian tube dysfunction, unspecified laterality H69.80 [facility] [id number] [place] [address] 61093- 0584 Sep, Moderate mixed bipolar I disorder F31.62 [address] [facility] [id number] [place] [address] 06137- 7181 Sep, Hypokalemia E87.6 [facility] [id number] [place] [address] 48806- 9626 Sep, [facility] [id number] [place] [address] 06544- 1009 Sep, Upper respiratory tract infection, unspecified type J06.9 [facility] [id number] [place] [address] 16077- 4833 Aug, [facility] [address] [place] [address]- 1037 Aug, Dysuria R30.0 [facility] [id number] [place] [address] 00116- 0273 Aug, [facility] [address] [address]- 0704 Jul, [facility] [id number] [place] [address] 593775- 3534 Jul, [facility] [id number] [address] 2609 Jul, [facility] [id number] [place] [address] 138903- 4875 Jul, [facility] [id number] [place] [address] 78939- 8209 Jun, [facility] [id number] [place] [address] 55283- 3351 Jun, [facility] [address] [address]- 5096 Jun, [facility] [address] [address]- 4449 29 May, 2015 [facility] [address] [address]- 9403 May, Bipolar I disorder, most recent episode (or current) mixed, moderate 296.62 [facility] [address] [address]- 6962 16 May, 2015 [facility] [address] [address]- 4963 May, Bipolar I disorder, most recent episode (or current) mixed, moderate 296.62 and Major depressive disorder, recurrent episode, severe, specified as with psychotic behavior 296.34 [facility] [address] [address]- 7110 May, Bipolar I disorder, most recent episode (or current) mixed, moderate 296.62 [facility] [address] [address]- 4385 May, [facility] [id number] [place] [address] 17289- 2545 Apr, [facility] [id number] [place] [address] 36501- 2405 Apr, [facility] [id number] [place] [address] 36044- 7478 Apr, Unspecified disorder of kidney and ureter 593.9 and Diabetes mellitus type 2, uncontrolled 250.02 [facility] [id number] [place] [address] 77435- 5170 Apr, [facility] [id number] [place] [address] 21589- 8081 Apr, [facility] [id number] [place] [address] 12200- 8340 Apr, [facility] [id number] [place] [address] 52919- 7428 Apr, [facility] [id number] [place] [address] 36900- 8196 Apr, Diabetes mellitus type II, uncontrolled 250.02 [facility] [id number] [place] [address] 02832- 7705 Apr, [facility] [id number] [place] [address] 22877- 9023 Mar, [facility] [id number] [place] [address] 31277- 8085 Mar, [facility] [id number] [place] [address] 20694- 6450 Mar, [facility] [id number] [place] [address] 87647- 9375 Mar, Major depressive disorder, recurrent episode, severe, specified as with psychotic behavior 296.34 and Bipolar I disorder, most recent episode (or current) mixed, moderate 296.62 [facility] [id number] [place] [address] 28315- 0175 Mar, Diabetes 250.00 ; Anuria 788.5 ; Nausea and vomiting 787.01 and Diarrhea 787.91 [facility] [id number] [place] [address] 45128- 5591 Mar, Diabetes 250.00 [facility] [id number] [place] [address] 40586- 8427 Mar, [facility] [id number] [place] [address] 82152- 7909 Mar, Diabetes 250.00 [facility] [id number] [place] [address] 81687- 9119 Mar, [facility] [id number] [place] [address] 73992- 9749 Mar, [facility] [id number] [place] [address] 91678- 0753 Mar, [facility] [id number] [place] [address] 79273- 2853 Mar, [facility] [id number] [place] [address] 98860- 4532 Mar, Bipolar I disorder, most recent episode (or current) mixed, moderate 296.62 and Major depressive disorder, recurrent episode, severe, specified as with psychotic behavior 296.34 [facility] [id number] [place] [address] 02097- 2415 Mar, Magnesium deficiency 275.2 ; Hypokalemia 276.8 ; Nausea & vomiting 787.01 and Diabetes mellitus type 2, uncontrolled 250.02 [facility] [address] [address]- 5433 Feb, [facility] [id number] [place] [address] 67193- 4427 Feb, Bipolar I disorder, most recent episode (or current) mixed, moderate 296.62 [facility] [id number] [place] [address] 85334- 9598 Feb, Nausea and vomiting 787.01 ; Left elbow pain 719.42 ; Anuria 788.5 and Diabetes 250.00 [facility] [id number] [place] [address] 07204- 4170 Feb, [facility] [address] 85715- 3603 Feb, Hypopotassemia 276.8 and Hypokalemia 276.8 [place] [address] 99566- 9811 Feb, Hypopotassemia 276.8 and Hypokalemia 276.8 [place] [id number] [place] [address] 29305- 4041 Feb, Seborrheic keratoses 702.19 [place] [id number] [place] [address] 35078- 7609 Feb, Hypopotassemia 276.8 and Low magnesium levels 275.2 [place] [id number] [place] [address] 52455- 3130 January, [facility] [id number] [place] [address] 88161- 3305 January, [facility] [id number] [place] [address] 23003- 1486 January, [facility] [id number] [place] [address] 05064- 0611 January, Scalp lesion 709.9 [facility] [id number] [place] [address] 53979- 8128 January, [facility] [id number] [place] [address] 56090- 1812 Dec, Tear of medial cartilage or meniscus of knee, current 836.0 and 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 [facility] [address] [id number] [place] [address]- 7386 Dec, [facility] [address] [facility] [id number] [place] [address]- 2786 Dec, [facility] [address] [facility] [id number] [place] [address]- 5076 28 Dec, 2014 Squamous cell carcinoma, 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 [facility] [address] [id number] [place] [address] 2546 14 Dec, 2014 [facility] [address] [facility] [id number] [place] [address]- 3156 Dec, [facility] [address] [facility] [id number] [place] [address]- 9006 Nov, [facility] [id number] [place] [address]- 1766 Nov, [facility] [address] [facility] [id number] [place] [address]- 9224 Nov, [facility] [address] [facility] [id number] [place] [address]- 7346 Nov, [facility] [address] [id number] [place] [address]- 2105 Nov, [facility] [address] [id number] [place] [address]- 9856 Nov, [facility] [address] [facility] [id number] [address] 2546 Nov, [facility] [address] [facility] [id number] [place] [address]- 0346 Nov, [facility] [address] [facility] [id number] [place] [address]- 2296 Nov, [facility] [id number] [address]- 1444 Nov, [facility] [place] [facility] [address] [id number] [place] [address]- 3752 Nov, [facility] [place] [facility] [address] [id number] [place] [address]- 6720 Nov, [facility] [place] [facility] [address] [id number] [place] [address]- 3061 Oct, 2014 [facility] [place] [facility] [address] [id number] [place] [address]- 9944 Oct, 2014 [facility] [place] [facility] [address] [id number] [place] [address]- 4375 Oct, 2014 [facility] [place] [facility] [address] [id number] [place] [address]- 9702 Oct, 2014 [facility] [place] [facility] [address] [facility] [id number] [place] [address]- 2918 Oct, 2014 [facility] [place] [facility] [address] [id number] [place] [address]- 7622 Oct, 2014 [facility] [place] [facility] [address] [id number] [place] [address]- 1036 Oct, 2014 [facility] [place] [facility] [address] [facility] [id number] [place] [address]- 9517 Oct, [facility] [place] [facility] [address] [facility] [id number] [place] [address]- 7557 Oct, [facility] [place] [facility] [address] [facility] [id number] [place] [address]- 6024 Sep, [facility] [place] [facility] [address] [id number] [place] [address]- 1351 Sep, [facility] [place] [facility] [address] [facility] [id number] [place] [address]- 0697 Sep, [facility] [place] [facility] [address] [facility] [id number] [place] [address]- 8791 Sep, [facility] [place] [facility] [address] [id number] [place] [address]- 6726 Sep, [facility] [place] [facility] [address] [id number] [place] [address]- 7047 Sep, [facility] [place] [facility] [address] [id number] [place] [address]- 3306 Sep, [facility] [place] [facility] [address] [id number] [place] [address]- 1086 Sep, [facility] [place] [facility] [address] [id number] [place] [address]- 8965 Sep, [facility] [place] [facility] [address] [id number] [place] [address]- 4855 Sep, [facility] [place] [facility] [address] [id number] [place] [address]- 3539 Sep, [facility] [place] [facility] [address] [id number] [place] [address]- 0303 Sep, [facility] [place] [facility] [address] [id number] [place] [address]- 1333 Sep, [facility] [place] [facility] [address] [id number] [place] [address]- 4873 Sep, [facility] [place] [facility] [address] [id number] [place] [address]- 8097 Sep, [facility] [place] [facility] [address] [id number] [place] [address]- 8500 Sep, [facility] [place] [facility] [address] [id number] [place] [address]- 2103 Aug, [facility] [place] [facility] [address] [id number] [place] [address]- 3539 Aug, [facility] [place] [facility] [address] [id number] [place] [address]- 2736 Aug, [facility] [place] [facility] [address] [id number] [place] [address]- 6952 Aug, [facility] [address] [id number] [place] [address]- 3340 Aug, [facility] [address] [id number] [place] [address]- 0630 Aug, [facility] [address] [id number] [place] [address]- 1529 Aug, [facility] [address] [id number] [place] [address]- 0072 Aug, [facility] [address] [id number] [place] [address]- 9510 Aug, [facility] [address] [id number] [place] [address]- 4447 Aug, [facility] [address] [id number] [place] [address]- 7683 Aug, [facility] [address] [place] [id number] Aug, [facility] [address] [id number] [place] [address]- 5855 Aug, [facility] [address] [id number] [place] [address]- 0034 Aug, [facility] [address] [id number] [place] [address]- 9881 Aug, [facility] [place] [facility] [address] [id number] [place] [address]- 5453 Aug, [facility] [place] [facility] [address] [id number] [place] [address]- 5399 Aug, [facility] [place] [facility] [address] [id number] [place] [address]- 9387 Aug, [facility] [address] [id number] [place] [address]- 6378 Aug, [facility] [place] [facility] [address] [id number] [place] [address]- 3050 Aug, [facility] [place] [facility] [address] [id number] [place] [address]- 2126 Aug, [facility] [place] [facility] [address] [id number] [place] [address]- 1925 Aug, [facility] [place] [facility] [address] [id number] [place] 1806 Aug, [facility] [place] [facility] [address] [id number] [place] [address]- 8312 Aug, [facility] [place] [facility] [address] [id number] [place] [address]- 0655 Aug, [facility] [place] [facility] [address] [id number] [place] [address]- 6014 Aug, [facility] [place] [facility] [address] [id number] [place] [address]- 6508 Aug, [facility] [place] [facility] [address] [id number] [place] [address]- 6721 Aug, [facility] [place] [facility] [address] [id number] [place] [address]- 4690 Aug, [facility] [place] [facility] [address] [id number] [place] [address]- 1351 Aug, [facility] [place] [facility] [address] [id number] [place] [address]- 7805 Jul, [facility] [place] [facility] [address] [id number] [place] [address]- 5266 Jul, [facility] [place] [facility] [address] [id number] [place] [address]- 4638 Jul, [facility] [place] [facility] [address] [id number] [place] [address]- 6064 Jul, [facility] [place] [facility] [address] [id number] [place] [address]- 1335 Jul, [facility] [place] [facility] [address] [id number] [place] [address]- 5606 Jul, [facility] [place] [facility] [address] [id number] [place] [address]- 8748 Jul, [facility] [place] [facility] [address] [id number] [place] [address]- 2069 Jul, [facility] [place] [facility] [address] [id number] [place] [address]- 4603 Jul, [facility] [place] [facility] [address] [id number] [place] [address]- 7315 Jul, [facility] [place] [facility] [address] [id number] [place] 5663 Jun, [facility] [place] [facility] [address] [id number] [place] [address]- 4670 Jun, [facility] [place] [facility] [address] [id number] [place] [address]- 7693 Jun, [facility] [place] [facility] [address] [id number] [place] [address]- 7193 Jun, [facility] [place] [facility] [address] [id number] [place] [address]- 1944 Jun, [facility] [place] [facility] [address] [facility] [id number] [place] [address]- 1575 Jun, [facility] [place] [facility] [address] [id number] [place] [address] Jun, [facility] [place] [facility] [address] [id number] [place] [address] Jun, [facility] [place] [facility] [address] [id number] [place] [address] Jun, [facility] [place] [facility] [address] [id number] [place] [address] Jun, [facility] [place] [facility] [address] [id number] [place] [address] May, [facility] [place] [facility] [address] [id number] [place] [address] 29 Sep, 2013 [facility] [place] [facility] [address] [id number] [place] [address] 26 Sep, 2013 [facility] [place] [facility] [address] [id number] [place] [address] 26 Sep, 2013 [facility] [place] [facility] [address] [id number] [place] [address] 17 Sep, 2013 [facility] [place] [facility] [address] [id number] [place] [address] 17 Sep, 2013 [facility] [place] [facility] [address] [id number] [place] [address] 15 Sep, 2013 [facility] [place] [facility] [address] [id number] [place] [address] 15 May, 2013 [facility] [place] [facility] [address] [id number] [place] [address] 15 Sep, 2013 [facility] [place] [facility] [address] [id number] [place] [address] 15 May, 2013 [facility] [place] [facility] [address] [id number] [place] [address] 10 May, 2013 [facility] [place] [facility] [address] [id number], [place] [address] 10 Sep, 2013 [facility] [place] [facility] [address] [id number], [place] [address] 09 Sep, 2013 [facility] [place] [facility] [address] [id number] [place] [address] 09 Sep, 2013 [facility] [place] [facility] [address] [id number] [place] [address] 04 Sep, 2013 [facility] [place] [facility] [address] [id number], [place] [address] 04 Sep, 2013 [facility] [place] [facility] [address] [id number], [place] [address] Apr, [facility] [place] [facility] [address] [id number] [place] [address] Apr, [facility] [place] [facility] [address] [id number] [place] [address]- [address]83 Apr, [facility] [place] [facility] [address] [id number] [place] [address] Apr, [facility] [place] [facility] [address] [id number] [place] [address] Apr, [facility] [place] [facility] [address] [id number] [place] [address] Apr, [facility] [place] [facility] [address] [id number] [place] [address]- [address]68 Apr, [facility] [place] [facility] [address] [id number] [place] [address] Apr, [facility] [place] [facility] [address] [id number] [place] [address] Apr, [facility] [place] [facility] [address] [id number] [place] [address] Apr, [facility] [place] [facility] [address] [id number] [place] [address] Apr, [facility] [place] [facility] [address] [id number] [place] [address] Apr, [facility] [place] [facility] [address] [id number] [place] [address] Apr, [facility] [place] [facility] [address] [id number] [place] [address] Apr, [facility] [place] [facility] [address] [id number] [place] [address] Apr, [facility] [place] [facility] [address] [id number] [place] [address] 39[address] Mar, [facility] [place] [facility] [address] [id number] [place] [address] Mar, 2013 [facility] [place] [facility] [address] [id number] [place] [address]- [address] Mar, 2013 [facility] [place] [facility] [address] [id number] [place] [address] Mar, 2013 [facility] [place] [facility] [address] [id number] [place] [address]- [address] Mar, 2013 [facility] [place] [facility] [address] [id number] [place] [address]- [address] Mar, 2013 [facility] [place] [facility] [address] [id number] [place] [address]- [address] Mar, 2013 [facility] [place] [facility] [address] [id number] [place] [address] Mar, 2013 [facility] [place] [facility] [address] [id number] [place] [address] Mar, 2013 [facility] [place] [facility] [address] [id number] [place] [address]228 Mar, 2013 [facility] [place] [facility] [address] [id number] [place] [address]- [address] Mar, 2013 [facility] [place] [facility] [address] [id number] [place] [address]- 8568 Mar, 2013 [facility] [place] [facility] [address] [id number] [place] [address]- [address]159 Mar, 2013 [facility] [place] [facility] [address] [id number] [place] [address]- [address]80 Mar, 2013 [facility] [place] [facility] [address] [id number] [place] [address]- [address] Mar, 2013 [facility] [place] [facility] [address] [id number] [place] [address]- [address] Mar, 2013 [facility] [place] [facility] [address] [id number] [place] [address] Mar, [facility] [place] [facility] [address] [id number] [place] [address]- [address]140 Mar, [facility] [place] [facility] [address] [id number] [place] [address]- 1774 Feb, [facility] [place] [facility] [address] [id number] [place] [address]- [address]185 Feb, [facility] [place] [facility] [address] [id number] [place] [address]- [address] Feb, [facility] [place] [facility] [address] [id number] [place] [address]- 16[address] Feb, [facility] [place] [facility] [address] [id number] [place] [address]- [address] Feb, [facility] [place] [facility] [address] [id number] [place] [address]- [address] Feb, [facility] [place] [facility] [address] [id number] [place] [address] 9748 Feb, [facility] [place] [facility] [address] [id number] [place] [address]- [address] Feb, [facility] [facility] [address] [id number] [place] [address] Feb, [facility] [place] [facility] [address] [id number], [place] [address] Feb, [facility] [place] [facility] [address] [id number], [place] [address] 455[address] Feb, [facility] [place] [facility] [address] [id number] [place] [address] 1038 Feb, [facility] [place] [facility] [address] [id number] [place] [address] 3823 Feb, [facility] [place] [facility] [address] [id number] [place] [address] 2635 Feb, [facility] [place] [facility] [address] [id number] [place] [address] 4567 January, [facility] [address] [id number] [place] [address] 0729 January, [facility] [place] [facility] [address] [id number] [place] [address] 6707 January, [facility] [place] [facility] [address] [id number] [place] [address] 495[address] January, [facility] [place] [facility] [address] [id number] [place] [address] 7589 January, [facility] [place] [facility] [address] [id number] [place] [address]- 8192 January, [facility] [place] [facility] [address] [id number] [place] [address]- 0347 January, [facility] [address] [id number] [place] [address]- 6807 January, [facility] [address] [id number] [place] [address]- 7358 January, [facility] [place] [facility] [address] [id number] [place] [address] 4857 January[facility] [address] [id number] [place] [address]- 1625 January, [facility] [facility] [address] [id number] [place] [address]- 4548 January, [facility] [facility] [address] [id number] [place] [address]- 1035 January, [facility] [place] [address] [id number] [place] [address]- 5592 January, [facility] [place] [facility] [address] [id number] [place] [address]- 2925 Dec, [facility] [address] [id number] [place] [address]- 5625 Dec, [facility] [address] [id number] [place] [address]- 2481 Dec, [facility] [address] [id number] [place] [address]- 1294 Dec, [facility] [place] [facility] [address] [id number] [place] [address]- 7821 Dec, [facility] [place] [facility] [address] [id number] [place] [address]- 5733 Dec, [facility] [address] [id number] [place] [address]- 5976 Dec, [facility] [place] [facility] [address] [id number] [place] [address]- 4581 Dec, [facility] [address] [id number] [place] [address]- 7262 Dec, [facility] [place] [facility] [address] [id number] [place] [address]- 1955 Dec, [facility] [place] [facility] [address] [id number] [place] [address]- 2881 Nov, [facility] [place] [facility] [address] [id number] [place] [address]- 2132 Nov, [facility] [address] [id number] [place] [address]- 8859 Nov, [facility] [place] [address] [id number] [place] [address]- 4225 Nov, [facility] [place] [address] [id number] [place] [address]- 5125 Nov, [facility] [place] [facility] [address] [id number] [place] [address]- 8017 Nov, [facility] [place] [facility] [address] [id number] [place] [address]- 7169 Nov, [facility] [place] [facility] [address] [id number] [place] [address]- 1908 Nov, [facility] [place] [facility] [address] [id number] [place] [address]- 3272 Nov, [facility] [place] [facility] [address] [id number] [place] [address]- 4637 Nov, [facility] [address] [facility] [id number] [place] [address]- 7057 Oct, [facility] [address] [id number] [place] [address]- 5585 Oct, [facility] [address] [id number] [place] [address]- 7032 Oct, [facility] [address] [facility] [id number] [place] [address]- 1636 Oct, [facility] [address] [facility] [id number] [place] [address]- 6990 Oct, [facility] [address] [facility] [id number] [place] [address]- 9110 Oct, [facility] [address] [facility] [id number] [place] [address]- 5629 Oct, [facility] [address] [facility] [id number] [place] [address]- 3080 Oct, [facility] [address] [facility] [id number] [place] [address]- 8727 Oct, [facility] [address] [facility] [id number] [place] [address]- 1535 Oct, [facility] [address] [facility] [id number] [place] [address]- 7055 Oct, [facility] [address] [facility] [id number] [place] [address]- 1171 Oct, [facility] [address] [facility] [id number] [place] [address]- 4797 Oct, [facility] [address] [id number] [place] [address]- 5375 Oct, [facility] [facility] [address] [id number] [place] [address]- 4729 Sep, [facility] [address] [id number] [place] [address]- 2501 Sep, [facility] [address] [id number] [place] [address]- 7996 Sep, [facility] [address] [id number] [place] [address]- 3287 Sep, [facility] [address] [id number] [place] [address]- 6427 Sep, [facility] [address] [id number] [place] [address]- 0229 Sep, [facility] [address] [id number] [place] [address]- 5590 Sep, [facility] [address] [id number] [place] [address]- 9695 Sep, [facility] [address] [id number] [place] [address]- 0690 Sep, [facility] [address] [id number] [place] [address]- 5447 Sep, [facility] [address] [id number], [place] [address]- 8710 Aug, [facility] [address] [id number] [place] [address]- 5346 Aug, [facility] [address] [id number] [place] [address]- 5827 Jul, [facility] [address] [id number] [place] [address]- 4744 Jul, [facility] [address] [id number] [place] [address]- 6555 13 Jul, 2013 [facility] [address] [id number] [place] [address]- 8555 13 Jul, 2013 [facility] [address] [id number] [place] [address]- 1140 Jul, [facility] [address] [id number] [place] [address]- 8496 Jul, [facility] [address] [id number] [place] [address]- 3177 Jul, [facility] [address] [id number] [place] [address]- 5511 Jul, [facility] [address] [id number] [place] [address]- 2402 Jul, [facility] [address] [id number] [place] [address]- 7428 Jul, [facility] [address] [id number] [place] [address]- 9929 Jul, [facility] [address] [id number] [place] [address]- 4469 Jul, [facility] [address] [facility] [id number] [place] [address]- 7575 Jul, [facility] [address] [id number] [place] [address]- 6889 Jul, [facility] [address] [id number], [place] [address]- 1466 Jul, [facility] [address] [id number] [place] [address]- 5818 Jul, [facility] [address] [id number] [place] [address]- 8144 Jul, [facility] [address] [id number], [place] [address]- 2160 Jul, [facility] [address] [id number] [place] [address]- 1538 Jul, 2012 [facility] [address] [id number] [place] [address]- 8756 Jun, 2012 [facility] [address] [id number] [place] [address]- 0689 Jun, 2012 [facility] [address] [id number] [place] [address]- 9020 Jun, 2012 [facility] [address] [id number] [place] [address]- 2651 Jun, 2012 [facility] [address] [id number] [place] [address]- 6339 Jun, 2012 [facility] [address] [id number] [place] [address] Jun, 2012 [facility] [address] [id number] [place] [address]- 5528 Jun, 2012 [facility] [address] [id number] [place] [address]- 4340 Jun, [facility] [address] [id number] [place] [address]- 2431 Jun, [facility] [address] [id number] [place] [address]- 7380 Jun, [facility] [address] [id number] [place] [address]- 7347 Jun, [facility] [address] [id number] [place] [address] May, 2012 [facility] [address] [id number] [place] [address]- 5555 25 May, 2012 [facility] [address] [id number] [place] [address]- 0619 19 May, 2012 [facility] [address] [id number] [place] [address]- 3113 17 May, 2013 [facility] [address] [id number] [place] [address]- 8976 11 May, 2013 [facility] [address] [id number] [place] [address]- 8964 10 May, 2013 [facility] [address] [id number] [place] [address]- 2838 May, [facility] [address] [id number] [place] [address]- 2909 05 May, 2013 [facility] [address] [id number] [place] [address]- 9817 Apr, [facility] [address] [id number] [place] [address]- 7102 Apr, [facility] [address] [id number] [place] [address]- 3358 Apr, [facility] [address] [id number] [place] [address]- 9682 Apr, [facility] [address] [id number] [place] [address]- 4187 Apr, [facility] [address] [id number] [place] [address]- 5967 Mar, [facility] [facility] [address] [id number] [place] [address]- 7384 Mar, [facility] [address] [id number] [place] [address]- 8614 Mar, [facility] [address] [id number] [place] [address]- 5593 Mar, [facility] [facility] [address] [id number] [place] [address]- 2681 Mar, [facility] [address] [id number] [place] [address]- 2390 Mar, [facility] [place] [facility] [address] [id number] [place] [address]- 5675 Mar, [facility] [address] [id number] [place] [address]- 0210 Mar, [facility] [address] [id number] [place] [address]- 8234 Feb, [facility] [address] [id number] [place] [address]- 7476 Feb, [facility] [address] [id number] [place] [address]- 3269 January, [facility] [address] [id number] [place] [address]- 6311 January, [facility] [address] [id number] [place] [address]- 5034 Dec, [facility] [address] [id number] [place] [address]- 3778 Dec, [facility] [address] [id number] [place] [address]- 9066 Nov, [facility] [address] [id number] [place] [address]- 1655 Nov, [facility] [address] [id number] [place] [address]- 5262 Nov, [facility] [address] [id number] [place] [address]- 4745 Nov, [facility] [address] [id number] [place] [address]- 1293 Oct, [facility] [address] [id number] [place] [address]- 3153 Oct, [facility] [address] [id number] [place] [address]- 4701 Oct, [facility] [address] [id number] [place] [address]- 2019 Oct, [facility] [address] [id number] [place] [address]- 9291 16 Oct, 2012 [facility] [facility] [address] [id number] [place] [address]- 0996 14 Oct, 2012 [facility] [place] [facility] [address] [id number] [place] [address]- 2487 08 Oct, 2012 [facility] [place] [facility] [address] [id number] [place] [address]- 8082 07 Oct, 2012 [facility] [place] [facility] [address] [id number] [place] [address]- 4935 Oct, [facility] [place] [facility] [address] [id number] [place] [address]- 0979 Sep, [facility] [place] [facility] [address] [id number] [place] [address]- 8086 Sep, [facility] [place] [facility] [address] [id number] [place] [address]- 0326 Sep, [facility] [place] [facility] [address] [id number] [place] [address]- 8618 Sep, [facility] [place] [facility] [address] [id number] [place] [address]- 7738 Sep, [facility] [place] [facility] [address] [id number] [place] [address]- 7943 Sep, [facility] [place] [facility] [address] [id number] [place] [address]- 1579 Sep, [facility] [place] [facility] [address] [id number] [place] [address]- 1479 Sep, [facility] [place] [facility] [address] [id number] [place] [address]- 5087 Aug, [facility] [place] [facility] [address] [id number] [place] [address]- 6335 Aug, [facility] [place] [facility] [address] [id number] [place] [address]- 1427 Aug, [facility] [address] [id number] [place] [address]- 5632 Aug, [facility] [place] [facility] [address] [id number] [place] [address]- 7164 Aug, [facility] [address] [id number] [place] [address]- 0375 Aug, [facility] [place] [facility] [address] [id number] [place] [address]- 5200 Aug, [facility] [address] [id number] [place] [address], [place] [address]- 2553 Aug, [facility] [place] [facility] [address] [id number] [place] [address]- 0843 Jul, [facility] [place] [facility] [address] [id number] [place] [address]- 4886 Jul, [facility] [place] [facility] [address] [id number] [place] [address]- 6336 Jul, [facility] [place] [facility] [address] [facility] [id number] [place] [address]- 8558 Jul, [facility] [address] [facility] [id number] [place] [address]- 4838 Jul, [facility] [place] [facility] [address] [facility] [id number] [place] [address]- 9457 Jul, [facility] [place] [facility] [address] [id number] [place] [address]- 3201 Jun, [facility] [place] [facility] [address] [id number] [place] [address]- 1825 Jun, [facility] [place] [facility] [address] [facility] [id number] [place] [address]- 7757 Jun, [facility] [place] [facility] [address] [facility] [id number] [place] [address]- 5691 Jun, [facility] [place] [facility] [address] [id number] [place] [address]- 7134 Jun, [facility] [place] [facility] [address] [id number] [place] [address]- 2400 Jun, [facility] [place] [facility] [address] [id number] [place] [address]- 2539 Jun, [facility] [place] [facility] [address] [id number] [place] [address]- 1612 Jun, [facility] [place] [facility] [address] [id number] [place] [address]- 6618 Jun, [facility] [place] [facility] [address] [id number] [place] [address]- 4360 26 May, 2012 [facility] [place] [facility] [address] [id number] [place] [address]- 4287 24 May, 2012 [facility] [place] [facility] [address] [id number] [place] [address]- 5409 18 May, 2012 [facility] [place] [facility] [address] [id number] [place] [address]- 2256 30 Apr, 2012 [facility] [place] [facility] [address] [id number] [place] [address]- 7076 29 Apr, 2012 [facility] [place] [facility] [address] [id number], [place] [address]- 9135 Apr, [facility] [place] [facility] [address] [id number], [place] [address]- 2021 14 Apr, 2012 [facility] [place] [facility] [address] [id number] [place] [address]- 5283 Apr, [facility] [place] [facility] [address] [id number], [place] [address]- 5353 Apr, [facility] [place] [facility] [address] [id number], [place] [address]- 9972 Mar, [facility] [place] [facility] [address] [id number], [place] [address]- 1266 Mar, [facility] [address] [id number] [place] [address]- 1344 Mar, [facility] [place] [facility] [address] [id number] [place] [address]- 8486 Mar, [facility] [place] [facility] [address] [id number] [place] [address]- 1399 Feb, [facility] [place] [facility] [address] [id number] [place] [address]- 5465 Feb, [facility] [place] [facility] [address] [id number] [place] [address]- 1331 Feb, [facility] [place] [facility] [address] [id number] [place] [address]- 7580 Feb, [facility] [address] [id number] [place] [address] Feb, [facility] [place] [facility] [address] [id number] [place] [address] January, [facility] [place] [facility] [address] [id number] [place] [address] January, [facility] [place] [facility] [address] [id number] [place] [address] January, [facility] [place] [facility] [address] [id number] [place] [address] January, [facility] [place] [facility] [address] [id number] [place] [address] January, [facility] [place] [facility] [address] [id number] [place] [address] January, [facility] [place] [facility] [address] [id number] [place] [address] Dec, [facility] [place] [facility] [address] [id number] [place] [address] Dec, [facility] [place] [facility] [address] [id number] [place] [address] 17 Dec, 2011 [facility] [place] [facility] [address] [id number] [place] [address] 09 Dec, 2011 [facility] [place] [facility] [address] [id number] [place] [address] 06 Dec, 2011 [facility] [place] [facility] [address] [id number] [place] [address] 27 Nov, 2011 [facility] [place] [facility] [address] [id number] [place] [address] 14 Nov, 2011 [facility] [place] [facility] [address] [id number] [place] [address] Nov, [facility] [place] [facility] [address] [facility] [id number] [place] [address] 07 Nov, 2011 [facility] [place] [facility] [address] [id number] [place] [address] 90[address] 29 Oct, 2011 [facility] [place] [facility] [address] [id number] [place] [address] 28 Oct, 2011 [facility] [place] [facility] [address] [id number] [place] [address] 24 Oct, 2011 [facility] [place] [facility] [address] [id number] [place] [address] 7979 13 Oct, 2011 [facility] [place] [facility] [address] [id number] [place] [address] 08 Oct, 2011 [facility] [place] [facility] [address] [id number] [place] [address] Sep, [facility] [place] [facility] [address] [id number] [place] [address]- [address]99 30 Sep, 2011 [facility] [place] [facility] [address] [id number] [place] [address] 12 Sep, 2011 [facility] [place] [facility] [address] [id number] [place] [address] Sep, [facility] [place] [facility] [address] [id number] [place] [address] Sep, [facility] [place] [facility] [address] [id number] [place] [address]- 1568 Sep, [facility] [place] [facility] [address] [id number] [place] [address] Aug, [facility] [place] [facility] [address] [id number] [place] [address] 270[address] Aug, [facility] [place] [facility] [address] [id number] [place] [address]- [address] Aug, [facility] [place] [facility] [address] [id number] [place] [address] 69[address] Jul, [facility] [place] [facility] [address] [id number] [place] [address] 2007 Jul, [facility] [place] [facility] [address] [id number] [place] [address]- 1007 Jul, [facility] [place] [facility] [address] [id number] [place] [address] 478[address] Jul, [facility] [place] [facility] [address] [id number] [place] [address] Jun, [facility] [place] [facility] [address] [id number] [place] [address] Jun, [facility] [place] [facility] [address] [id number], [place] [address] 18 Jun, 2011 [facility] [place] [facility] [address] [id number] [place] [address]- [address]115 Jun, [facility] [place] [facility] [address] [id number] [place] [address]- [address] Jun, [facility] [place] [facility] [address] [id number] [place] [address] 46[address] Jun, [facility] [place] [facility] [address] [id number] [place] [address]- 9924 11 Mar, 2011 [facility] [address] [id number] [place] [address] 6[address] 18 Dec, 2010 [facility] [address] [id number] [place] [address]- 2546 11 Dec, 2010 [facility] [address] [id number] [place] [address]- 4476 18 Nov, 2010 [facility] [address] [id number] [place] [address]- 7295 16 Nov, 2010 [facility] [address] [id number] [place] [address] 1112 10 Sep, 2010 [facility] [address] [id number] [place] [address] 9641 31 Aug, 2010 [facility] [address] [id number] [place] [address]- 8575 29 Aug, 2010 [facility] [address] [id number] [place] [address]- 2709 29 Aug, 2010 [facility] [address] [id number] [place] [address] 1263 29 Aug, 2010 [facility] [address] [id number] [place] [address] 0740 27 Aug, 2010 [facility] [address] [id number] [place] [address] 2546 14 Aug, 2010 [facility] [address] [id number] [place] [address] 2546 08 Aug, 2010 [facility] [address] [id number] [place] [address] 2546 08 Aug, 2010 [facility] [address] [id number] [place] [address] 2546 07 Aug, 2010 [facility] [address] [id number] [place] [address]- 7916 Aug, [facility] [place] [facility] [address] [id number] [place] [address] 0705 Aug, [facility] [place] [facility] [address] [id number] [place] [address] Aug, [facility] [place] [facility] [address] [id number] [place] [address]116 Jul, [facility] [place] [facility] [address] [id number] [place] [address]- 5127 Jul, [facility] [place] [facility] [address] [id number] [place] [address] Jul, [facility] [place] [facility] [address] [id number] [place] [address]- 6139 Jul, [facility] [place] [facility] [address] [id number] [place] [address]- 8130 Jul, [facility] [place] [facility] [address] [id number], [place] [address]- 8[address] Jul, [facility] [place] [facility] [address] [id number] [place] [address]- 9[address] Jun, [facility] [place] [facility] [address] [facility] [id number], [place] [address]- [address] Jun, [facility] [place] [facility] [address] [id number], [place] [address]- 4[address] Jun, [facility] [place] [facility] [address] [id number], [place] [address]- 3975 Jun, [facility] [place] [facility] [address] [id number], [place] [address]- 7209 Apr, [facility] [place] [facility] [address] [id number], [place] [address]- 57[address] Mar, [facility] [place] [facility] [address] [id number], [place] [address]- 9198 Feb, [facility] [place] [facility] [address] [id number], [place] [address]- 384[address] January, [facility] [place] [facility] [address] [facility] [id number] [address] 15 Dec, 2009 [facility] [address] [facility] [id number][place] [address] Nov, [facility] [address] [facility] [id number][place] [address] 31 Aug, 2009 [facility] [address] [facility] [id number], [place] [address] Aug, [facility] [address] [facility] [id number] [place] [address] Aug, [facility] [address] [facility] [id number], [place] [address] Jul, [facility] [id number] [place] [address] Jul, [facility] [address] [facility] [id number], [place] [address] Jul, [facility] [address] [id number] [address] 30 Jun, 2009 [facility] [address] [id number], [place] [address] 29 Jun, 2009 [facility] [address] [facility] [id number][place] [address] Jun, [facility] [address] [facility] [id number], [place] [address] Jun, [facility] [address] [facility] [id number], [place] [address] Jun, [facility] [address] [facility] [id number], [place] [address] Jun, [facility] [address] [facility] [id number], [place] [address] Apr, [facility] [address] [facility] [id number] [place] [address] Apr, [facility] [address] [facility] [id number], [place] [address] Feb, [facility] [address] [facility] [id number][place] [address] January, [facility] [address] [facility] [id number], [place] [address] Dec, IMMUNIZATIONS No Known Immunizations SOCIAL HISTORY Never Assessed REASON FOR VISIT Diabetes-Sina KENT PLAN OF CARE Activity Details Follow Up 3 Months Reason:DM VITAL SIGNS Height 67 in 2018-04-16 Weight 350.1 lbs 2018-04-16 Temperature 97.8 degrees Fahrenheit 2018-04-16 Heart Rate 64 bpm 2018-04-16 Respiratory Rate 18 2018-04-16 BMI 54.83 kg/m2 2018-04-16 Blood pressure systolic 158 mmHg 2018-04-16 Blood pressure diastolic 80 mmHg 2018-04-16 MEDICATIONS Medication Instructions Dosage Frequency Start Date End Date Duration Status Imbruvica 140 MG Orally Once a day 3 capsules in the evening 24h Oct, Active Levemir 100 UNIT/ML Subcutaneous 2 times a day inject 100 units 12h Oct 30 days Active Valium 5 mg Orally Twice a day as needed for anxiety 1 tablet Oct, 30 days Active NovoLog Flexpen 100 UNIT/ML INJECT 30 UNITS SUBCUTANEOUSLY WITH BREAKFAST, 30 UNITS WITH LUNCH AND 40 UNITS WITH EVENING MEAL 90 Active Abilify 30 MG TAKE ONE TABLET BY MOUTH ONCE DAILY 30 Active Zofran ODT 8 MG Orally Twice a day as needed 1 tablet on the tongue and allow to dissolve Mar, Active Ventolin HFA 108 (90 Base) MCG/ACT Inhalation every 4 hrs 2 puffs as needed 4h 30 Active Fluticasone Propionate 50 MCG/ACT Nasally Once a day 1 spray in each nostril 24h 30 Active Gabapentin 300 MG Orally 3 times a day 2 capsules 8h Mar, Active Nexium 40 MG Orally Once a day 1 capsule 24h 90 Active Losartan Potassium 100 MG Orally Once a day 1 tablet 24h Active Aspirin 81 mg 1 tablet by Oral route 1 time per day Apr, Active Silver Sulfadiazine 1 % Externally Once a day 1 application to affected area 24h Feb, Active Trintellix 20 MG TAKE ONE (1) TABLET BY MOUTH ONCE DAILY 30 Active Naproxen 500 MG TAKE ONE TABLET BY MOUTH EVERY 12 HOURS NEEDED FOR HEADACHE Active Clonidine HCl 0.1 MG Orally 2 times a day 1 tablet 12h 90 Active Allopurinol 300 MG Orally Once a day 1 tablet 24h Mar, 90 days Active Atorvastatin Calcium 20 MG Orally Once a day 1 tablet at bedtime 24h Active Glucocard Expression Test - as directed Sep, Active Victoza 18 MG/3ML INJECT 1.8MG SUBCUTANEOUSLY ONCE DAILY 90 Active Incruse Ellipta 62.5 MCG/INH Inhalation Once a day 1 puff 24h 90 Active Vitamin D3 1,000 unit 2 capsule by Oral route 1 time per day Apr, Active Potassium Chloride Kathi ER 20 MEQ Orally Once a day 1 tablet with food 24h 30 days Active Clopidogrel Bisulfate 75 MG Orally Once a day 1 tablet 24h 90 Active Percocet 10-325 MG Orally 4 times a day 1 tablet as needed 6h Mar, 28 days Active Furosemide 20 MG Orally Once a day 3 tablets 24h Mar, 30 Active Metoprolol Succinate ER 100 mg Orally twice a day 1 tablet 12h 90 days Active Singulair 10 mg Orally Once a day 1 Tablet by Oral route 1 time per day 24h Nov, 90 days Active Flomax 0.4 mg Orally Once a day 1 capsule 30 minutes after the same meal each day 24h 90 Active Voltaren 1 % Transdermal every 4-6 hours as needed 4grams to knee and hip 5 Active Zofran 4 MG Orally 3 times a day prn nausea and vomiting 1 tablet 5 Active Ambien 10 mg Orally at bedtime as needed for sleep 1 tablet Nov, 30 days Active Symbicort 80-4.5 MCG/ACT Inhalation Twice a day 2 puffs 12h 30 Active RESULTS No Results PROCEDURES Procedure Date Ordered Result Body Site GLYCATED HEMOGLOBIN TEST April 16, 2018 MICROALBUMIN, SEMIQUANT April 16, 2018 [facility] VISIT ESTABLISHED PATIENT April 16, 2018 [facility], 2018 VENIPUNCT, ROUTINE* April 16, 2018 INSTRUCTIONS MEDICATIONS ADMINISTERED No Known Medications MEDICAL (GENERAL) HISTORY Type Description Date Medical History type II diabetes Medical History coronary artery disease stress test 01/5015 Medical History chronic obstructive pulmonary disease (COPD) Medical History gastroesophageal reflux disease (GERD) Medical History acute renal failure Medical History erectile dysfunction Medical History hyperlipidemia Medical History obesity Medical History skin cancer-basal cell R cheondoism (removed) Medical History Arthritis Medical History degenerative [...] tunnel release (Left) 2000 Surgical History EGD ([facility]) 2009 Surgical History colonoscopy 2009 ([place]), 2013 ([place]) Surgical History heart 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 04/2014 Surgical History carotid US 05/2014 Surgical History resection of skin cancer from Right cheondoism Surgical History Biopsy of Lung Bilateral/Left lung lymph node 09/2016 Surgical History Bone Marrow Biopsy Surgical History port in the right chest wall 12/2016 Hospitalization History [facility] low potassium, low magnesium, chest painina 01/2015 Hospitalization History inability to urinate 09/16/15 Hospitalization History [facility] Hospitalization History hyperkalemia 10/2017 Hospitalization History fluid in lung
--- OUTSIDE RECORDS SUMMARY | 2018-08-08 13:50 | XMS REPORT ---
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 Role Phone CLAUDIANANCY CURRIE Unavailable PROBLEMS Type Condition ICD9-CM Code [id number] Code Onset Dates Condition Status SNOMED Code Problem Chronic lymphocytic leukemia C91.10 Active 99163373 Problem Lymphocytosis D72.820 Active 10964014 Problem Eye exam abnormal R93.8 Active 491213062 Problem Eustachian tube dysfunction, unspecified laterality H69.80 Active 73513583 Problem Essential hypertension I10 Active 93232188 Problem Dysuria R30.0 Active 90482402 Problem Diabetic polyneuropathy associated with type 2 diabetes mellitus E11.42 Active 17239093 Problem Cough R05 Active 62762081 Problem Polyneuropathy associated with underlying disease G63 Active 055719059 Problem Retinal edema H35.81 Active 2608360 Problem Bilateral primary osteoarthritis of knee M17.0 Active 824380893 Problem Primary osteoarthritis of right knee M17.11 Active 482668084243113 Problem Pure hypercholesterolemia E78.00 Active 603974923 Problem DM neuro manif type II E11.49 Active 58530442 Problem Benign prostatic hyperplasia with lower urinary tract symptoms, unspecified morphology N40.1 Active 463962259 Problem Hypokalemia E87.6 Active 00576924 Problem 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 Active 556481106 Problem Anemia of chronic illness D63.8 Active 771559960 Problem Bipolar disorder, in partial remission, most recent episode depressed F31.75 Active 38815795 Problem Falling R29.6 Active 740366733 Problem Leukocytosis D72.829 Active 778141529 Problem Reactive airway disease J45.909 Active 596899257731 Problem Diabetes E11.9 Active 95841774 Problem Chronic pain G89.29 Active 99915424 Problem Anxiety F41.9 Active 54514963 Problem Morbid obesity E66.01 Active 859594678 Problem Bipolar I disorder, most recent episode (or current) mixed, moderate F31.62 Active 78138031 Problem Insomnia, unspecified type G47.00 Active 878596827 ALLERGIES No Information ENCOUNTERS Encounter Location Date Diagnosis [facility] [id number] [place] [address] 17207- 9284 Jun, [facility] [id number] [place] [address] 81200- 4055 May, Chronic pain G89.29 [facility] [id number] [place] [address] 65560- 3164 Apr, [facility] [address] 07464- 5829 Apr, Chronic pain G89.29 [facility] [id number] [place] [address] 52362- 2155 Apr, Primary osteoarthritis of right knee M17.11 [facility] [id number] [place] [address] 33658- 0769 Mar, [facility] [id number] [place] [address] 76259- 2433 Mar, BMI 50.0-59.9, adult Z68.43 and Bipolar disorder, in partial remission, most recent episode depressed F31.75 [facility] [id number] [place] [address] 47976- 9540 Mar, Diabetes E11.9 ; Pure hypercholesterolemia E78.00 ; Essential hypertension I10 ; Nausea with vomiting, unspecified R11.2 and Headache, unspecified headache type R51 [facility] [id number] [place] [address] 82656- 8868 Mar, Bipolar I disorder, most recent episode (or current) mixed, moderate F31.62 [facility] [id number] [place] [address] 32537- 8953 Mar, Bipolar I disorder, most recent episode (or current) mixed, moderate F31.62 [facility] [id number] [place] [address] [place] [address]- 2718 Mar, Chronic pain G89.29 [facility] [id number] [place] [address] 01182- 1035 Mar, Bipolar I disorder, most recent episode (or current) mixed, moderate F31.62 [facility] [id number] [place] [address] 87696- 8259 Feb, Bipolar I disorder, most recent episode (or current) mixed, moderate F31.62 [facility] [id number] [place] [address] 10101- 9868 Feb, Chronic pain G89.29 [facility] [id number] [place] [address] 12524- 4003 Feb, Decubitus ulcer of right foot, stage 3 L89.893 and BMI 50.0- 59.9, adult Z68.43 [facility] [id number] [place] [address] 54732- 6867 Feb, Bipolar I disorder, most recent episode (or current) mixed, moderate F31.62 [facility] [id number] [place] [address] 05014- 2747 Feb, [facility] [id number] [place] [address] 35279- 3156 January, [facility] [id number] [place] [address] 71385- 1799 January, Chronic pain G89.29 [facility] [id number] [place] [address] 43232- 6355 January, Bipolar I disorder, most recent episode (or current) mixed, moderate F31.62 [facility] [id number] [place] [address] 48957- 4767 January, Bipolar I disorder, most recent episode (or current) mixed, moderate F31.62 [facility] [id number] [place] [address] 22257- 6886 Dec, Bipolar I disorder, most recent episode (or current) mixed, moderate F31.62 and BMI 50.0-59.9, adult Z68.43 [facility] [id number] [place] [address] 9568 Dec, Bipolar I disorder, most recent episode (or current) mixed, moderate F31.62 [facility] [id number] [place] [address] 45007- 4396 Dec, Chronic pain G89.29 [facility] [id number] [place] [address] 86788- 8266 Dec, DM neuro manif type II E11.49 ; Right flank pain R10.9 ; 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 ; Encounter for medication monitoring Z51.81 and BMI 50.0-59.9, adult Z68.43 [facility] [id number] [place] [address] 78846- 8134 Dec, Bipolar I disorder, most recent episode (or current) mixed, moderate F31.62 [facility] [id number] [place] [address] 80377- 7081 Nov, Bipolar I disorder, most recent episode (or current) mixed, moderate F31.62 [facility] [id number] [place] [address] 65578- 6269 Nov, Chronic pain G89.29 [facility] [id number] [place] [address] 11868- 9468 Nov, Bipolar I disorder, most recent episode (or current) mixed, moderate F31.62 [facility] [id number] [place] [address] 53023- 3919 Nov, Hypokalemia E87.6 [facility] [id number] [place] [address] 78971- 9720 Nov, Bipolar I disorder, most recent episode (or current) mixed, moderate F31.62 [facility] [id number] [place] [address] 57698- 1992 Oct, Chronic pain G89.29 [facility] [address] 21241- 4050 Oct, BMI 50.0-59.9, adult Z68.43 and Bipolar I disorder, most recent episode (or current) mixed, moderate F31.62 [facility] [address] 94568- 0617 Oct, Bipolar I disorder, most recent episode (or current) mixed, moderate F31.62 [facility] [address] 67753- 4861 Oct, [facility] [address] 44507- 0861 Oct, Hypokalemia E87.[address] 99624- 1138 Oct, DM neuro manif type II E11.49 [facility] [id number] [place] [address] 47495- 9372 Oct, Bipolar I disorder, most recent episode (or current) mixed, moderate F31.62 [facility] [id number] [place] [address] 20159- 5993 Oct, Bipolar I disorder, most recent episode (or current) mixed, moderate F31.62 [facility] [id number] [place] [address] 48984- 2619 14 Oct, 2017 Hyperkalemia E87.5 ; Falling R29.6 ; BMI 50.0-59.9, adult Z68.43 and Acute left ankle pain M25.572 [facility] [id number] [place] [address] 65729- 0104 Oct, DM neuro manif type II E11.[address] 85012- 5681 Oct, [facility] [id number] [place] [address] 04779- 1748 Sep, Chronic pain G89.29 [facility] [id number] [place] [address] 34013- 8530 Sep, [facility] [id number] [place] [address] 83211- 8489 Sep, Bilateral primary osteoarthritis of knee M17.0 [facility] [address] 48808- 1770 Sep, Generalized edema R60.1 [facility] [address] 03139- 2977 Sep, Bipolar I disorder, most recent episode (or current) mixed, moderate F31.62 [facility] [id number] [place] [address] 67897- 9404 Sep, Hypoxia R09.02 ; Other hypervolemia E87.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 ; Anemia of chronic illness D63.8 and BMI 50.0- 59.9, adult Z68.43 [facility] [id number] [place] [address] 70021- 5049 Sep, [facility] [id number] [place] [address] 65125- 9021 Sep, Bipolar I disorder, most recent episode (or current) mixed, moderate F31.62 [facility] [id number] [place] [address] 50147- 7372 Aug, Chronic pain G89.29 [facility] [id number] [place] [address] 55387- 9324 Aug, Generalized edema R60.1 [facility] [id number] [place] [address] 27697- 6439 Aug, [facility] [id number] [place] [address] 68147- 9609 Aug, [facility] [id number] [place] [address] 73388- 5762 Aug, Bipolar I disorder, most recent episode (or current) mixed, moderate F31.62 [facility] [id number] [place] [address] 86278- 5538 Aug, Bipolar I disorder, most recent episode (or current) mixed, moderate F31.62 [facility] [id number] [place] [address] 66769- 4383 Aug, Chronic pain G89.29 [facility] [id number] [place] [address] 90032- 1806 Jul, Bipolar I disorder, most recent episode (or current) mixed, moderate F31.62 [facility] [id number] [place] [address] 24884- 2840 Jul, Bipolar I disorder, most recent episode (or current) mixed, moderate F31.62 and BMI 60.0-69.9, adult Z68.44 [facility] [place] [id number] [place] [address] 17360- 3159 Jul, Bipolar I disorder, most recent episode (or current) mixed, moderate F31.62 [facility] [id number] [place] [address] 52796- 3065 Jul, Chronic pain G89.29 [facility] [id number] [place] [address] 35508- 4748 Jul, Bipolar I disorder, most recent episode (or current) mixed, moderate F31.62 [address] [place] [address] 35913- 7794 Jun, Polyneuropathy associated with underlying disease G63 and Diabetes E11.9 [facility] [place] [id number] [place] [address] 71477- 3894 Jun, Bipolar I disorder, most recent episode (or current) mixed, moderate F31.62 [facility] [id number] [place] [address] 50567- 5845 09 Jun, 2017 Chronic pain G89.29 [facility] [id number] [place] [address] 18574- 0186 27 May, 2017 Bipolar I disorder, most recent episode (or current) mixed, moderate F31.62 [facility] [id number] [place] [address] 54504- 0177 21 May, 2017 Bipolar I disorder, most recent episode (or current) mixed, moderate F31.62 [facility] [id number] [place] [address] 61050- 9498 20 May, 2017 Diabetic polyneuropathy associated with type 2 diabetes mellitus E11.42 [facility] [id number] [place] [address] 82222- 9508 18 May, 2017 Bipolar I disorder, most recent episode (or current) mixed, moderate F31.62 [facility] [id number] [place] [address] 57090- 4333 13 May, 2017 Bipolar I disorder, most recent episode (or current) mixed, moderate F31.62 [facility] [id number] [place] [address] 29244- 1619 May, Chronic pain G89.29 [facility] [id number] [place] [address] 89283- 5691 Apr, Bipolar I disorder, most recent episode (or current) mixed, moderate F31.62 [facility] [id number] [place] [address] 59063- 3043 Apr, [facility] [id number] [place] [address] 02406- 4294 Apr, Chronic pain G89.29 and DM neuro manif type II E11.49 [facility] [id number] [place] [address] 77580- 8239 Apr, [facility] [address] [place] [address]- 0063 Apr, Bipolar I disorder, most recent episode (or current) mixed, moderate F31.62 [facility] [id number] [place] [address] 71640- 5726 Apr, Chronic pain G89.29 [facility] [id number] [place] [address] 49375- 2735 Apr, Iliotibial band syndrome, left M76.32 [facility] [id number] [place] [address] 73872- 1709 Apr, Bipolar I disorder, most recent episode (or current) mixed, moderate F31.62 [facility] [id number] [place] [address] 87535- 2288 Mar, Bipolar I disorder, most recent episode (or current) mixed, moderate F31.62 [facility] [id number] [place] [address] 80541- 0378 Mar, Bipolar I disorder, most recent episode (or current) mixed, moderate F31.62 [facility] [id number] [place] [address] 84453- 7867 Mar, [facility] [id number] [place] [address] 57597- 7283 Mar, Bipolar I disorder, most recent episode (or current) mixed, moderate F31.62 [facility] [address] [address]- 8276 Mar, Chronic pain G89.29 [facility] [id number] [place] [address] 54694- 6747 Mar, Bipolar I disorder, most recent episode (or current) mixed, moderate F31.62 [facility] [address] [place] [address]- 3225 Mar, Bipolar I disorder, most recent episode (or current) mixed, moderate F31.62 [facility] [address] [place] [address]- 2171 Mar, Acute pain of left knee M25.562 ; Left hip pain M25.552 ; Generalized edema R60.1 and Tongue swelling R22.0 [facility] [address] [place] [address]- 9129 Mar, [facility] [id number] [place] [address] 33458- 2201 Feb, Chronic pain G89.29 [facility] [id number] [place] [address] 55603- 5577 Feb, Diabetes E11.9 [facility] [id number] [place] [address] 46189- 2216 January, Chronic pain G89.29 [facility] [id number] [place] [address] 65834- 7964 January, [facility] [address] [place] [address]- 3033 January, Bipolar I disorder, most recent episode (or current) mixed, moderate F31.62 [facility] [address] [address]- 9029 Dec, Bipolar I disorder, most recent episode (or current) mixed, moderate F31.62 [facility] [address] [address]- 6252 Dec, Chronic pain G89.29 [facility] [address] [place] [address]- 0763 Dec, Bipolar I disorder, most recent episode (or current) mixed, moderate F31.62 [facility] [address] [place] [address]- 0152 Dec, Diabetes E11.9 ; Essential hypertension I10 ; Chronic pain G89.29 and Morbid obesity E66.01 [facility] [id number] [address]- 0766 Dec, [facility] [address] [place] [address]- 5284 Dec, Bipolar I disorder, most recent episode (or current) mixed, moderate F31.62 [facility] [address] [place] [address]- 3916 Dec, Bipolar I disorder, most recent episode (or current) mixed, moderate F31.62 [facility] [address] [place] [address]- 6467 Nov, Chronic pain G89.29 [facility] [address] [place] [address]- 0626 Nov, Bipolar I disorder, most recent episode (or current) mixed, moderate F31.62 [facility] [address] [place] [address]- 1616 Nov, [facility] [address] [place] [address]- 8665 Nov, Bipolar I disorder, most recent episode (or current) mixed, moderate F31.62 [facility] [address] [place] [address]- 8056 Nov, Bipolar I disorder, most recent episode (or current) mixed, moderate F31.62 [facility] [address], [place] [address]- 1136 Nov, [facility] [address] [place] [address] 2546 Nov, [facility] [address] [place] [address]- 3216 Nov, [facility] [address] [place] [address]- 3326 Oct, Chronic pain G89.29 [facility] [address], [place] [address]- 4607 Oct, Bipolar I disorder, most recent episode (or current) mixed, moderate F31.62 [facility] [id number] [place] [address] 26535- 6916 Oct, [facility] [id number] [place] [address] 76730- 2546 15 Oct, 2016 Chronic pain G89.29 ; Diabetes E11.9 ; Anxiety F41.9 and 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 [facility] [id number] [place] [address] 48644- 5632 Oct, [facility] [id number] [place] [address] 80817- 2571 Oct, Diabetes E11.9 [facility] [id number] [place] [address] 65771- 7399 Oct, Bipolar I disorder, most recent episode (or current) mixed, moderate F31.62 [facility] [id number] [place] [address] 99895- 9814 Sep, Chronic pain G89.29 [facility] [id number] [place] [address] 49416 2546 Sep, Chronic pain G89.29 [facility] [id number] [place] [address] 13408- 0336 Aug, Chronic pain G89.29 [facility] [id number] [place] [address] 34298 2546 Jul, [facility] [id number] [place] [address] 25072- 2596 Jul, Diabetes E11.9 [facility] [id number] [place] [address] 86459 2546 Jul, Chronic pain G89.29 [facility] [id number] [place] [address] 90537 254 Jul, Bipolar I disorder, most recent episode (or current) mixed, moderate F31.62 [facility] [id number] [place] [address] 22882- 7487 Jun, Bipolar I disorder, most recent episode (or current) mixed, moderate F31.62 [facility] [id number] [place] [address] 22917- 8752 Jun, [facility] [address] 98390- 6268 Jun, Bipolar I disorder, most recent episode (or current) mixed, moderate F31.62 [facility] [address] 01809- 2475 30 May, 2016 Insomnia, unspecified type G47.00 [facility] [facility] [id number] [place] [address] 25275- 5847 May, Bipolar I disorder, most recent episode (or current) mixed, moderate F31.62 [facility] [id number] [place] [address] 23818- 8430 14 May, 2016 [facility] [address] 54544- 8889 May, Bipolar I disorder, most recent episode (or current) mixed, moderate F31.62 [facility] [id number] [place] [address] 58867- 3084 May, Diabetes E11.9 and Essential hypertension I10 [facility] [id number] [place] [address] 70464- 1743 Apr, Chronic pain G89.29 [facility] [id number] [place] [address] 31764- 4511 Apr, Bipolar I disorder, most recent episode (or current) mixed, moderate F31.62 [facility] [id number] [place] [address] 54774- 6696 Apr, [facility] [address] 84153- 7610 Apr, [facility] [id number] [place] [address] 18326- 7955 Mar, Chronic pain G89.29 ; Headache, unspecified headache type R51 ; Neuropathy G62.9 ; Pain of right hip joint M25.551 and Essential hypertension I10 [facility] [id number] [place] [address] 99961- 0281 Mar, Chronic pain G89.29 [facility] [id number] [place] [address] 46086- 1208 Mar, Bipolar I disorder, most recent episode (or current) mixed, moderate F31.62 [facility] [id number] [place] [address] 25984- 5052 Feb, Bipolar I disorder, most recent episode (or current) mixed, moderate F31.62 and Insomnia, unspecified type G47.00 [facility] [id number] [place] [address] 61492- 2078 Feb, Chronic pain G89.29 [facility] [id number] [place] [address] 22582- 7558 Feb, Bipolar I disorder, most recent episode (or current) mixed, moderate F31.62 [facility] [id number] [place] [address] 50920- 0060 January, Bipolar I disorder, most recent episode (or current) mixed, moderate F31.62 [facility] [id number] [place] [address] 66572- 6427 January, Chronic pain G89.29 [facility] [id number] [place] [address] 53826- 3805 January, Chronic pain G89.29 and Essential hypertension I10 [facility] [id number] [place] [address] 26350- 5304 January, Bipolar I disorder, most recent episode (or current) mixed, moderate F31.62 [facility] [id number] [place] [address] 03495- 9659 Dec, [facility] [id number] [place] [address] 21397- 8144 Dec, [facility] [id number] [place] [address] 94360- 0219 Dec, [facility] [address] 75019- 1437 Dec, [facility] [id number] [place] [address] 70334- 1563 Nov, Reactive airway disease J45.909 [facility] [id number] [place] [address] [id number]- 8593 Nov, [facility] [id number] [place] [address] [id number]- 1061 Nov, [facility] [id number] [place] [address] [id number]- 7905 Nov, [facility] [id number] [place] [address] 21472- 9742 Nov, [facility] [id number] [place] [address] 53911- 5612 Nov, Onychomycosis B35.1 ; [place] M20.40 ; [place] or callus L84 and DM neuro manif type II E11.49 [facility] [id number] [place] [address] 89734- 4706 Nov, Chronic pain G89.29 ; Leukocytosis D72.829 and Diabetes E11.9 [facility] [id number] [place] [address] 03520- 1812 Nov, [facility] [id number] [place] [address] 52032- 4855 Oct, Bronchitis J40 [facility] [address] [address]- [address] Oct, [facility] [id number] [place] [address] 28450- 4292 Oct, [place] [id number] [place] [address] 646805- 1585 Oct, Mastoiditis, unspecified laterality H70.90 and Type 2 diabetes mellitus with complication E11.8 [facility] [facility] [id number] [place] [address] 05689- 2422 Sep, [facility] [facility] [id number] [place] [address] 70312- 3279 Sep, Dysuria R30.0 ; Cough R05 ; Benign prostatic hyperplasia with lower urinary tract symptoms, unspecified morphology N40.1 ; Hypokalemia E87.6 and Eustachian tube dysfunction, unspecified laterality H69.80 [facility] [id number] [place] [address] 18114- 6222 Sep, Moderate mixed bipolar I disorder F31.62 [facility] [facility] [id number] [place] [address] 01444- 3513 Sep, Hypokalemia E87.6 [facility] [id number] [place] [address] 46508- 6962 Sep, [facility] [id number] [place] [address] 67933- 9492 Sep, Upper respiratory tract infection, unspecified type J06.9 [facility] [id number] [place] [address] 59918- 6923 Aug, [facility] [id number] [place] [address] 18500- 2532 Aug, Dysuria R30.0 [place] [id number] [place] [address] 26128- 5155 Aug, [facility] [id number] [place] [address] 76305- 2845 Jul, [facility] [address], [place] [address] 6091 Jul, [facility] [address], [place] [address]- 0799 Jul, [facility] [address], [place] [address]- 0000 Jul, [facility] [id number] [place] [address] 78564- 1592 Jun, [facility] [address], [place] [address]- 6673 Jun, [facility] [id number] [place] [address] 67640- 8122 Jun, [facility] [address], [place] [address]- 6360 May, [facility] [address], [place] [address]- 8983 May, Bipolar I disorder, most recent episode (or current) mixed, moderate 296.62 [facility] [address], [place] [address]- 0859 May, [facility] [address], [place] [address]- 2559 May, Bipolar I disorder, most recent episode (or current) mixed, moderate 296.62 and Major depressive disorder, recurrent episode, severe, specified as with psychotic behavior 296.34 [facility] [address], [place] [address]- 6909 May, Bipolar I disorder, most recent episode (or current) mixed, moderate 296.62 [facility] [address] 3123 May, [facility] [address], [place] [address]- 9187 Apr, [facility] [address], [place] [address]- 7028 Apr, [facility] [id number], [place] [address]- 7124 Apr, Unspecified disorder of kidney and ureter 593.9 and Diabetes mellitus type 2, uncontrolled 250.02 [facility] [address], [place] [address]- 3919 Apr, [facility] [id number] [place] [address] 91570- 5441 Apr, [facility] [address], [place] [address]- 7104 Apr, [facility] [address], [place] [address]- 8667 Apr, [facility] [id number] [place] [address] 89727- 9162 Apr, Diabetes mellitus type II, uncontrolled 250.02 [facility] [address], [place] [address]- 4386 Apr, [facility] [address], [place] [address]- 9070 Mar, [facility] [address], [place] [address]- 7993 Mar, [facility] [address], [place] [address]- 5089 Mar, [facility] [id number], [place] [address]- 9409 Mar, Major depressive disorder, recurrent episode, severe, specified as with psychotic behavior 296.34 and Bipolar I disorder, most recent episode (or current) mixed, moderate 296.62 [facility] [id number], [place] [address]- 4957 Mar, Diabetes 250.00 ; Anuria 788.5 ; Nausea and vomiting 787.01 and Diarrhea 787.91 [facility] [facility] [id number], [place] [address]- 9392 Mar, Diabetes 250.00 [facility] [id number] [place] [address] 69365- 0042 Mar, [facility] [id number] [place] [address] 21947- 9463 Mar, Diabetes 250.00 [facility] [id number] [place] [address] 77689- 0075 Mar, [facility] [id number] [place] [address] 64257- 9740 Mar, [facility] [id number] [place] [address] 64907- 3037 Mar, [facility] [id number] [place] [address] 79541- 9201 Mar, [facility] [id number] [place] [address] 68466- 7910 Mar, Bipolar I disorder, most recent episode (or current) mixed, moderate 296.62 and Major depressive disorder, recurrent episode, severe, specified as with psychotic behavior 296.34 [facility] [id number] [place] [address] 84274- 5957 Mar, Magnesium deficiency 275.2 ; Hypokalemia 276.8 ; Nausea & vomiting 787.01 and Diabetes mellitus type 2, uncontrolled 250.02 [facility] [id number] [place] [address] 04231- 4785 Feb, [facility] [id number] [place] [address] 14343- 8960 Feb, Bipolar I disorder, most recent episode (or current) mixed, moderate 296.62 [facility] [id number] [place] [address] 11114- 5607 Feb, Nausea and vomiting 787.01 ; Left elbow pain 719.42 ; Anuria 788.5 and Diabetes 250.00 [facility] [id number], [place] [address]- 9277 Feb, [facility] [id number] [place] [address] 18719- 8195 Feb, Hypopotassemia 276.8 and Hypokalemia 276.8 [facility] [id number] [place] [address] 85603- 5906 Feb, Hypopotassemia 276.8 and Hypokalemia 276.8 [facility] [id number] [place] [address] 13509- 1215 Feb, Seborrheic keratoses 702.19 [facility] [id number] [place] [address] 84423- 5378 Feb, Hypopotassemia 276.8 and Low magnesium levels 275.2 [facility] [id number] [place] [address] 02700- 9195 January, [facility] [id number] [place] [address] 92777- 5166 January, [facility] [id number] [place] [address] 90864- 3399 January, [facility] [id number] [place] [address] 57941- 5935 January, Scalp lesion 709.9 [facility] [id number] [place] [address] 85276- 2528 January, [facility] [id number] [place] [address] 11242- 4778 Dec, Tear of medial cartilage or meniscus of knee, current 836.0 and 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 [facility] [id number], [place] [address]- 4250 Dec, [facility] [id number], [place] [address]- 0775 Dec, [facility] [place] [facility] [address] [id number] [place] [address]- 3156 28 Dec, 2014 Squamous cell carcinoma, 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 [facility] [place] [facility] [address] [id number] [place] [address]- 7100 14 Dec, 2014 [facility] [place] [facility] [address] [facility] [id number] [place] [address]- 6106 13 Dec, 2014 [facility] [place] [facility] [address] [id number] [place] [address]- 0793 27 Nov, 2014 [facility] [place] [facility] [address] [id number] [place] [address]- 0425 Nov, [facility] [place] [facility] [address] [id number] [place] [address]- 3477 Nov, [facility] [place] [facility] [address] [facility] [id number] [place] [address]- 2351 Nov, [facility] [place] [facility] [address] [facility] [id number], [place] [address]- 4623 Nov, [facility] [place] [facility] [address] [facility] [id number] [place] [address]- 7918 Nov, [facility] [place] [facility] [address] [facility] [id number] [place] [address]- 2686 Nov, [facility] [place] [facility] [address] [facility] [id number], [place] [address]- 0179 Nov, [facility] [place] [facility] [address] [id number], [place] [address]- 0778 Nov, [facility] [place] [facility] [address] [facility] [id number] [place] [address]- 0750 Nov, [facility] [place] [facility] [address] [facility] [id number], [place] [address]- 3317 Nov, [facility] [place] [facility] [address] [facility] [id number] [place] [address]- 7240 Nov, [facility] [place] [facility] [address] [facility] [id number] [place] [address]- 4020 Oct, 2014 [facility] [place] [facility] [address] [id number] [place] [address]- 1029 Oct, 2014 [facility] [place] [facility] [address] [id number] [place] [address] 2546 Oct, 2014 [facility] [place] [facility] [address] [id number] [place] [address]- 6891 Oct, 2014 [facility] [place] [facility] [address] [id number] [place] [address]- 2548 Oct, 2014 [facility] [place] [facility] [address] [id number] [place] [address]- 5839 Oct, 2014 [facility] [place] [facility] [address] [facility] [id number] [place] [address]- 4496 Oct, 2014 [facility] [place] [facility] [address] [facility] [id number] [place] [address]- 8757 Oct, 2014 [facility] [place] [facility] [address] [id number] [place] [address]- 8668 Oct, [facility] [place] [facility] [address] [facility] [id number] [place] [address]- 3944 Sep, [facility] [place] [facility] [address] [facility] [id number] [place] [address]- 7367 Sep, [facility] [place] [facility] [address] [facility] [id number] [place] [address]- 5638 Sep, [facility] [place] [facility] [address] [id number], [place] [address]- 1715 Sep, [facility] [place] [facility] [address] [id number] [place] [address]- 9494 Sep, [facility] [place] [facility] [address] [facility] [id number] [place] [address]- 3407 Sep, [facility] [place] [facility] [address] [facility] [id number] [place] [address]- 3495 Sep, [facility] [place] [facility] [address] [id number] [place] [address]- 4903 Sep, [facility] [place] [facility] [address] [id number] [place] [address]- 9568 Sep, [facility] [place] [facility] [address] [id number] [place] [address]- 7797 Sep, [facility] [place] [facility] [address] [id number] [place] [address]- 8393 Sep, [facility] [place] [facility] [address] [id number] [place] [address]- 3493 Sep, [facility] [place] [facility] [address] [id number] [place] [address]- 3498 Sep, [facility] [place] [facility] [address] [id number] [place] [address]- 0826 Sep, [facility] [place] [facility] [address] [id number] [place] [address]- 1577 Sep, [facility] [place] [facility] [address] [id number] [place] [address]- 3882 Sep, [facility] [place] [facility] [address] [id number] [place] [address]- 8280 Aug, [facility] [place] [facility] [address] [id number], [place] [address]- 6029 Aug, [facility] [place] [facility] [address] [id number], [place] [address]- 5961 Aug, [facility] [place] [facility] [address] [id number] [place] [address]- 2082 Aug, [facility] [place] [facility] [address] [id number] [place] [address]- 6758 Aug, [facility] [place] [facility] [address] [id number] [place] [address]- 5554 Aug, [facility] [place] [facility] [address] [id number] [place] [address]- 2839 Aug, [facility] [address] [id number] [place] [address]- 4959 Aug, [facility] [address] [id number] [place] [address]- 8091 Aug, [facility] [address] [id number] [place] [address]- 9846 Aug, [facility] [address] [id number] [place] [address]- 4793 Aug, [facility] [address] [place] [id number] Aug, [facility] [address] [id number] [place] [address]- 6950 Aug, [facility] [address] [id number] [place] [address]- 2273 Aug, [facility] [address] [id number] [place] [address]- 1856 Aug, [facility] [address] [id number] [place] [address]- 2156 Aug, [facility] [address] [id number] [place] [address]- 9259 Aug, [facility] [address] [id number] [place] [address]- 1176 Aug, [facility] [address] [id number] [place] [address]- 8035 Aug, [facility] [address] [id number] [place] [address]- 6062 Aug, [facility] [address] [id number] [place] [address]- 8410 Aug, [facility] [address] [id number] [place] [address]- 4842 Aug, [facility] [place] [facility] [address] [id number] [place] [address]- 9176 Aug, [facility] [place] [facility] [address] [id number] [place] [address]- 7560 Aug, [facility] [place] [facility] [address] [id number] [place] 1909 Aug, [facility] [place] [facility] [address] [id number] [place] [address]- 2417 Aug, [facility] [place] [facility] [address] [id number] [place] [address]- 2999 Aug, [facility] [place] [facility] [address] [id number] [place] 6128 Aug, [facility] [place] [facility] [address] [id number] [place] [address]- 2342 Aug, [facility] [place] [facility] [address] [id number] [place] [address]- 9890 Aug, [facility] [place] [facility] [address] [id number] [place] [address]- 2754 Jul, [facility] [place] [facility] [address] [id number] [place] [address]- 2719 Jul, [facility] [place] [facility] [address] [id number] [place] [address]- 1851 Jul, [facility] [place] [facility] [address] [id number] [place] [address]- 0866 Jul, [facility] [place] [facility] [address] [id number] [place] [address]- 6026 Jul, [facility] [place] [facility] [address] [id number] [place] [address]- 0450 Jul, [facility] [place] [facility] [address] [id number] [place] [address]- 1887 Jul, [facility] [place] [facility] [address] [id number] [place] [address]- 8291 Jul, [facility] [place] [facility] [address] [id number] [place] [address]- 0795 Jul, [facility] [place] [facility] [address] [id number] [place] [address]- 1812 Jul, [facility] [place] [facility] [address] [id number] [place] 3996 Jun, [facility] [place] [facility] [address] [id number] [place] [address]- 9779 Jun, [facility] [place] [facility] [address] [id number] [place] 1130 Jun, [facility] [place] [facility] [address] [id number] [place] [address]- 6351 Jun, [facility] [place] [facility] [address] [id number] [place] [address]- 3752 Jun, [facility] [place] [facility] [address] [id number] [place] [address]- 7357 Jun, [facility] [place] [facility] [address] [id number] [place] [address]- 7176 Jun, [facility] [place] [facility] [address] [id number] [place] [address]- 5219 Jun, [facility] [place] [facility] [address] [id number] [place] [address]- 1908 Jun, [facility] [place] [facility] [address] [id number] [place] [address]- 6371 Jun, [facility] [place] [facility] [address] [id number] [place] [address]- 3645 May, [facility] [place] [facility] [address] [id number] [place] 4812 May, [facility] [place] [facility] [address] [id number] [place] [address]- 4792 May, [facility] [place] [facility] [address] [id number] [place] [address]- 5063 26 Sep, 2013 [facility] [place] [facility] [address] [id number] [place] [address] 2546 17 Sep, 2013 [facility] [place] [facility] [address] [id number] [place] [address]- 6206 17 May, 2013 [facility] [place] [facility] [address] [id number] [place] [address] 2546 15 Sep, 2013 [facility] [place] [facility] [address] [id number] [place] [address] 2546 15 May, 2013 [facility] [place] [facility] [address] [id number] [place] [address]- 5029 15 May, 2013 [facility] [place] [facility] [address] [id number] [place] [address]- 0978 15 May, 2013 [facility] [place] [facility] [address] [id number] [place] [address]- 2357 10 May, 2013 [facility] [place] [facility] [address] [id number] [place] [address]- 2582 10 May, 2013 [facility] [place] [facility] [address] [id number] [place] [address]- 2879 09 May, 2013 [facility] [place] [facility] [address] [id number] [place] [address]- 5520 09 May, 2013 [facility] [place] [facility] [address] [id number] [place] [address] 254 04 May, 2013 [facility] [place] [facility] [address] [id number] [place] [address]- 2540 May, 2013 [facility] [place] [facility] [address] [id number] [place] [address]- 0170 Apr, [facility] [place] [facility] [address] [id number] [place] [address]- 4434 Apr, [facility] [place] [facility] [address] [id number] [place] [address]- 1850 Apr, [facility] [place] [facility] [address] [id number] [place] [address]- 1597 Apr, [facility] [place] [facility] [address] [id number] [place] [address]- 3751 Apr, [facility] [place] [facility] [address] [id number] [place] [address]- 4465 Apr, [facility] [place] [facility] [address] [id number] [place] [address]- 2927 Apr, [facility] [place] [facility] [address] [id number] [place] [address]- 3113 Apr, [facility] [place] [facility] [address] [id number] [place] [address]- 9154 Apr, [facility] [place] [facility] [address] [id number] [place] [address]- 6369 Apr, [facility] [place] [facility] [address] [id number] [place] [address]- 9150 Apr, [facility] [place] [facility] [address] [id number] [place] [address]- 9109 Apr, [facility] [place] [facility] [address] [id number] [place] [address]- 2032 Apr, [facility] [place] [facility] [address] [id number] [place] [address]- 4864 Apr, [facility] [place] [facility] [address] [id number] [place] [address] Apr, [facility] [place] [facility] [address] [id number] [place] [address] Mar, [facility] [place] [facility] [address] [id number] [place] [address] Mar, [facility] [place] [facility] [address] [id number] [place] [address] Mar, [facility] [place] [facility] [address] [id number] [place] [address] Mar, 2013 [facility] [place] [facility] [address] [id number] [place] [address] Mar, 2013 [facility] [place] [facility] [address] [id number] [place] [address]35 Mar, 2013 [facility] [place] [facility] [address] [id number] [place] [address]- [address] Mar, 2013 [facility] [place] [facility] [address] [id number] [place] [address] Mar, 2013 [facility] [place] [facility] [address] [id number] [place] [address] Mar, 2013 [facility] [place] [facility] [address] [id number] [place] [address] Mar, 2013 [facility] [place] [facility] [address] [id number] [place] [address] Mar, 2013 [facility] [place] [facility] [address] [id number] [place] [address] Mar, 2013 [facility] [place] [facility] [address] [id number] [place] [address]843 Mar, 2013 [facility] [place] [facility] [address] [id number] [place] [address] Mar, 2013 [facility] [place] [facility] [address] [id number] [place] [address]- [address] Mar, 2013 [facility] [place] [facility] [address] [id number], [place] [address] Mar, 2013 [facility] [place] [facility] [address] [id number] [place] [address] Mar, [facility] [place] [facility] [address] [id number] [place] [address] Mar, [facility] [place] [facility] [address] [id number] [place] [address]246 Feb, [facility] [place] [facility] [address] [id number] [place] [address] Feb, [facility] [place] [facility] [address] [id number] [place] [address] 94[address] Feb, [facility] [place] [facility] [address] [id number] [place] [address] Feb, [facility] [place] [facility] [address] [id number] [place] [address]328 Feb, [facility] [place] [facility] [address] [id number] [place] [address]- [address] Feb, [facility] [place] [facility] [address] [id number] [place] [address]106 Feb, [facility] [place] [facility] [address] [id number] [place] [address]- [address]676 Feb, [facility] [place] [facility] [address] [id number] [place] [address]- [address] Feb, [facility] [place] [facility] [address] [id number] [place] [address] Feb, [facility] [place] [facility] [address] [id number] [place] [address]328 Feb, [facility] [place] [facility] [address] [id number] [place] [address]752 Feb, [facility] [place] [facility] [address] [id number] [place] [address]001 Feb, [facility] [place] [facility] [address] [id number] [place] [address] Feb, [facility] [place] [facility] [address] [id number] [place] [address] January, [facility] [place] [facility] [address] [id number] [place] [address] January, [facility] [place] [facility] [address] [id number] [place] [address]- 2026 January, [facility] [place] [facility] [address] [id number] [place] [address]- 89[address] January, [facility] [place] [facility] [address] [id number] [place] [address] January, [facility] [place] [facility] [address] [id number] [place] [address] January, [facility] [place] [facility] [address] [id number] [place] [address] January, [facility] [address] [id number] [place] [address] January, [facility] [place] [facility] [address] [id number] [place] [address] 9369 January, [facility] [address] [id number] [place] [address] January, [facility] [address] [id number] [place] [address]694 January, [facility] [place] [facility] [address] [id number] [place] [address] January, [facility] [place] [facility] [address] [id number] [place] [address] January, [facility] [place] [facility] [address] [id number] [place] [address] January, [facility] [place] [facility] [address] [id number] [place] [address]- [address] Dec, [facility] [place] [facility] [address] [id number] [place] [address]- [address]171 Dec, [facility] [place] [facility] [address] [id number] [place] [address]- 48[address] Dec, [facility] [place] [facility] [address] [id number] [place] [address] Dec, [facility] [place] [facility] [address] [id number] [place] [address]897 Dec, [facility] [place] [facility] [address] [id number] [place] [address] Dec, [facility] [place] [facility] [address] [id number] [place] [address]- [address]32 Dec, [facility] [place] [facility] [address] [id number] [place] [address]- 6114 Dec, [facility] [place] [facility] [address] [id number] [place] [address]- 5508 Dec, [facility] [place] [facility] [address] [id number] [place] [address]- 2942 Dec, [facility] [place] [facility] [address] [id number] [place] [address]- 8439 Nov, [facility] [place] [facility] [address] [id number] [place] [address]- 0378 Nov, [facility] [place] [facility] [address] [id number] [place] [address]- 2813 Nov, [facility] [place] [facility] [address] [id number] [place] [address]- 6776 Nov, [facility] [place] [facility] [address] [id number] [place] [address]- 2005 Nov, [facility] [place] [facility] [address] [id number] [place] [address]- 8448 Nov, [facility] [place] [facility] [address] [id number] [place] [address]- 7400 Nov, [facility] [place] [facility] [address] [id number] [place] [address]- 6495 Nov, [facility] [place] [facility] [address] [id number] [place] [address] Nov, [facility] [place] [facility] [address] [id number] [place] [address] Nov, [facility] [place] [facility] [address] [id number] [place] [address]- 7054 Oct, [facility] [place] [facility] [address] [id number] [place] [address]- 2186 Oct, [facility] [place] [facility] [address] [id number] [place] [address]- 2546 Oct, [facility] [place] [facility] [address] [id number] [place] [address]- 4006 Oct, [facility] [place] [facility] [address] [id number] [place] [address]- 6277 Oct, [facility] [place] [facility] [address] [id number] [place] [address]- 1646 Oct, [facility] [place] [facility] [address] [facility] [id number] [place] [address]- 5698 Oct, [facility] [place] [facility] [address] [id number] [place] [address]- 2860 Oct, [facility] [place] [facility] [address] [id number] [place] [address]- 8955 Oct, [facility] [place] [facility] [address] [facility] [id number] [place] [address]- 4422 Oct, [facility] [place] [facility] [address] [facility] [id number] [place] [address]- 4592 Oct, [facility] [place] [facility] [address] [id number] [place] [address]- 0345 Oct, [facility] [place] [facility] [address] [id number] [place] [address]- 5223 Oct, [facility] [place] [facility] [address] [id number] [place] [address]- 0230 Oct, [facility] [place] [facility] [address] [id number] [place] [address]- 3679 Sep, [facility] [place] [facility] [address] [id number] [place] [address]- 5637 20 Sep, 2013 [facility] [address] [id number] [place] [address]- 5719 15 Sep, 2013 [facility] [place] [facility] [address] [id number] [place] [address]- 8424 15 Sep, 2013 [facility] [place] [facility] [address] [id number] [place] [address]- 7573 14 Sep, 2013 [facility] [place] [facility] [address] [id number] [place] [address]- 4641 14 Sep, 2013 [facility] [place] [facility] [address] [id number] [place] [address]- 2734 14 Sep, 2013 [facility] [place] [facility] [address] [id number] [place] [address]- 3627 14 Sep, 2013 [facility] [address] [id number] [place] [address]- 6090 08 Sep, 2013 [facility] [place] [facility] [address] [id number] [place] [address]- 0475 08 Sep, 2013 [facility] [place] [facility] [address] [id number] [place] [address]- 9234 10 Aug, 2013 [facility] [place] [facility] [address] [id number] [place] [address]- 2202 Aug, [facility] [place] [facility] [address] [id number] [place] [address]- 7608 Jul, [facility] [place] [facility] [address] [id number] [place] [address]- 0086 Jul, [facility] [place] [facility] [address] [id number] [place] [address]- 1550 13 Jul, 2013 [facility] [place] [facility] [address] [id number] [place] [address]- 4135 13 Jul, 2013 [facility] [place] [facility] [address] [id number] [place] [address]- 2437 13 Jul, 2013 [facility] [place] [facility] [address] [id number] [place] [address]- 6155 Jul, [facility] [place] [facility] [address] [id number] [place] [address]- 3625 Jul, [facility] [place] [facility] [address] [id number] [place] [address]- 6212 Jul, [facility] [place] [facility] [address] [id number] [place] [address]- 2534 Jul, [facility] [place] [facility] [address] [id number] [place] [address]- 8595 Jul, [facility] [place] [facility] [address] [id number] [place] [address]- 6504 Jul, [facility] [place] [facility] [address] [id number] [place] [address]- 7151 Jul, [facility] [place] [facility] [address] [id number] [place] [address]- 4910 Jul, [facility] [place] [facility] [address] [id number] [place] [address]- 9388 Jul, [facility] [place] [facility] [address] [id number] [place] [address]- 9599 Jul, [facility] [place] [facility] [address] [id number] [place] [address]- 9947 Jul, [facility] [place] [facility] [address] [id number] [place] [address]- 7910 Jul, [facility] [place] [facility] [address] [id number] [place] [address]- 3342 Jul, [facility] [place] [facility] [address] [id number] [place] [address]- 7554 Jul, [facility] [place] [facility] [address] [id number] [place] [address]- 6983 16 Jun, 2013 [facility] [place] [facility] [address] [id number], [place] [address]- 2163 16 Jun, 2012 [facility] [place] [facility] [address] [id number] [place] [address]- 9462 16 Jun, 2012 [facility] [place] [facility] [address] [id number] [place]38 16 Jun, 2012 [facility] [place] [facility] [address] [id number] [place] [address]- 2752 16 Jun, 2012 [facility] [place] [facility] [address] [id number] [place] [address]- 3056 16 Jun, 2012 [facility] [place] [facility] [address] [id number] [place] [address]- 3720 10 Jun, 2012 [facility] [place] [facility] [address] [id number] [place] [address]- 9984 10 Jun, 2012 [facility] [place] [facility] [address] [id number] [place] [address]- 6398 09 Jun, 2012 [facility] [place] [facility] [address] [id number], [place] [address]- 8069 09 Jun, 2013 [facility] [place] [facility] [address] [id number], [place] [address]- 1278 Jun, [facility] [place] [facility] [address] [id number], [place] [address]- 0798 26 May, 2012 [facility] [place] [facility] [address] [id number], [place] [address]- 8601 25 Sep, 2012 [facility] [place] [facility] [address] [id number], [place] [address]- 2240 19 Sep, 2012 [facility] [place] [facility] [address] [id number] [place] [address]- 6506 17 Sep, 2012 [facility] [place] [facility] [address] [id number], [place] [address]- 1071 11 Sep, 2012 [facility] [place] [facility] [address] [id number], [place] [address]- 3274 10 Sep, 2012 [facility] [place] [facility] [address] [id number] [place] [address]- 8997 May, [facility] [address] [id number] [place] [address]- 7852 May, [facility] [place] [facility] [address] [id number] [place] [address]- 7475 Apr, [facility] [address] [id number] [place] [address]- 0010 Apr, [facility] [address] [id number] [place] [address]- 3762 Apr, [facility] [address] [id number] [place] [address]- 0675 Apr, [facility] [address] [id number] [place] [address]- 6371 Apr, [facility] [address] [id number] [place] [address]- 6658 Mar, [facility] [address] [id number] [place] [address]- 6948 Mar, [facility] [place] [facility] [address] [id number] [place] [address]- 0786 Mar, [facility] [address] [id number] [place] [address]- 5230 Mar, [facility] [place] [facility] [address] [id number] [place] [address]- 9667 Mar, [facility] [place] [facility] [address] [id number] [place] [address]- 0892 Mar, [facility] [place] [facility] [address] [id number] [place] [address]- 9276 Mar, [facility] [place] [facility] [address] [id number] [place] [address]- 5996 Mar, [facility] [place] [facility] [address] [id number] [place] [address]- 6321 Feb, [facility] [address] [id number] [place] [address]- 5253 Feb, [facility] [place] [facility] [address] [id number] [place] [address]- 7866 January, [facility] [address] [id number] [place] 1177 January, [facility] [place] [facility] [address] [id number] [place] [address]- 2178 Dec, [facility] [address] [id number] [place] [address]- 2312 Dec, [facility] [place] [facility] [address] [id number] [place] [address]- 8437 Nov, [facility] [address] [id number] [place] [address]- 8615 Nov, [facility] [place] [facility] [address] [id number] [place] [address]- 4701 Nov, [facility] [place] [facility] [address] [id number] [place] [address]- 4154 Nov, [facility] [place] [facility] [address] [id number] [place] [address]- 3942 Oct, [facility] [place] [facility] [address] [id number] [place] [address]- 5946 Oct, [facility] [place] [facility] [address] [id number], [place] [address]- 4655 Oct, [facility] [place] [facility] [address] [id number] [place] [address]- 4212 Oct, [facility] [place] [facility] [address] [id number] [place] [address]- 2106 16 Oct, 2012 [facility] [place] [facility] [address] [id number] [place] [address]- 5211 14 Oct, 2012 [facility] [place] [facility] [address] [id number] [place] [address]- 2368 08 Oct, 2012 [facility] [address] [id number] [place] [address]- 0725 07 Oct, 2012 [facility] [address] [id number] [place] [address]- 2546 03 Oct, 2012 [facility] [address] [id number] [place] [address]- 3662 30 Sep, 2012 [facility] [address] [id number] [place] [address]- 0321 Sep, [facility] [address] [id number] [place] [address]- 8659 Sep, [facility] [address] [id number] [place] [address]- 3582 Sep, [facility] [address] [id number] [place] [address]- 6586 Sep, [facility] [address] [id number] [place] [address]- 1841 Sep, [facility] [address] [id number] [place] [address]- 5610 Sep, [facility] [address] [id number] [place] [address]- 6294 Sep, [facility] [address] [id number] [place] [address]- 6521 Aug, [facility] [address] [id number] [place] [address]- 8436 Aug, [facility] [address] [id number] [place] [address]- 0926 Aug, [facility] [address] [id number] [place] [address]- 5896 Aug, [facility] [address] [id number] [place] 5149 Aug, [facility] [place] [facility] [address] [id number] [place] [address]- 1206 Aug, [facility] [place] [facility] [address] [id number] [place] [address]- 6330 Aug, [facility] [place] [facility] [address] [id number] [place] [address]- 0820 Aug, [facility] [place] [facility] [address] [id number] [place] [address]- 4182 Jul, [facility] [place] [facility] [address] [id number] [place] [address]- 4203 Jul, [facility] [place] [facility] [address] [id number] [place] [address]- 6760 Jul, [facility] [place] [facility] [address] [id number] [place] [address]- 9128 Jul, [facility] [place] [facility] [address] [id number], [place] [address]- 5848 Jul, [facility] [place] [facility] [address] [id number], [place] [address]- 5009 Jul, [facility] [place] [facility] [address] [facility] [id number], [place] [address]- 6824 Jun, [facility] [place] [facility] [address] [id number], [place] [address]- 6413 Jun, [facility] [place] [facility] [address] [id number], [place] [address]- 9818 Jun, [facility] [place] [facility] [address] [id number], [place] [address]- 3532 Jun, [facility] [place] [facility] [address] [id number], [place] [address]- 4776 Jun, [facility] [place] [facility] [address] [facility] [id number], [place] [address]- 0143 Jun, [facility] [place] [facility] [address] [id number], [place] [address]- 7949 Jun, [facility] [place] [facility] [address] [id number] [place] [address]- 2212 10 Jun, 2012 [facility] [place] [facility] [address] [id number] [place] [address]- 6425 10 Jun, 2012 [facility] [place] [facility] [address] [id number] [place] [address]- 9326 26 May, 2012 [facility] [place] [facility] [address] [id number] [place] [address]- 5183 24 May, 2012 [facility] [place] [facility] [address] [id number] [place] [address]- 5190 18 May, 2012 [facility] [place] [facility] [address] [id number] [place] [address]- 2475 Apr, [facility] [place] [facility] [address] [id number] [place] [address]- 4849 Apr, [facility] [place] [facility] [address] [id number] [place] [address]- 5170 Apr, [facility] [place] [facility] [address] [id number] [place] [address]- 0940 Apr, [facility] [place] [facility] [address] [facility] [id number] [place] [address]- 8811 Apr, [facility] [place] [facility] [address] [id number] [place] [address]- 5657 Apr, [facility] [place] [facility] [address] [id number], [place] [address]- 9463 Mar, [facility] [place] [facility] [address] [id number] [place] [address]- 5446 Mar, [facility] [place] [facility] [address] [facility] [id number] [place] [address]- 2777 Mar, [facility] [place] [facility] [address] [facility] [id number] [place] [address]- 7226 Mar, [facility] [place] [facility] [address] [id number] [place] [address]- 9660 29 Feb, 2012 [facility] [place] [facility] [address] [id number] [place] [address]- 7606 Feb, [facility] [place] [facility] [address] [id number] [place] [address]- 3196 Feb, [facility] [place] [facility] [address] [id number] [place] [address]- 5741 Feb, [facility] [place] [facility] [address] [id number] [place] [address]- 4723 Feb, [facility] [place] [facility] [address] [id number] [place] [address]- 9903 January, [facility] [place] [facility] [address] [id number] [place] [address]- 5729 January, [facility] [place] [facility] [address] [id number] [place] [address]- 5289 January, [facility] [place] [facility] [address] [id number] [place] [address]- 7694 January, [facility] [place] [facility] [address] [id number] [place] [address]- 9896 January, [facility] [place] [facility] [address] [id number] [place] 6168 January, [facility] [place] [facility] [address] [id number] [place] [address]- 5232 Dec, [facility] [place] [facility] [address] [id number] [place] [address]- 0757 Dec, [facility] [place] [facility] [address] [id number] [place] [address]- 1198 Dec, [facility] [place] [facility] [address] [id number] [place] [address]- 7875 Dec, [facility] [place] [facility] [address] [id number] [place] [address]- 3309 06 Dec, 2011 [facility] [place] [facility] [address] [id number] [place] [address]- 3034 27 Nov, 2011 [facility] [place] [facility] [address] [id number] [place] [address]- 9446 14 Nov, 2011 [facility] [place] [facility] [address] [id number] [place] [address]- 0002 Nov, [facility] [place] [facility] [address] [id number] [place] [address]- 4063 07 Nov, 2011 [facility] [place] [facility] [address] [id number] [place] [address]- 4345 29 Oct, 2011 [facility] [place] [facility] [address] [id number] [place] [address]- 1843 28 Oct, 2011 [facility] [place] [facility] [address] [id number] [place] [address]- 2107 24 Oct, 2011 [facility] [place] [facility] [address] [id number] [place] [address]- 4022 13 Oct, 2011 [facility] [place] [facility] [address] [id number] [place] [address]- 0339 08 Oct, 2011 [facility] [place] [facility] [address] [id number] [place] [address]- 1960 Sep, [facility] [place] [facility] [address] [id number] [place] [address]- 5352 Sep, [facility] [place] [facility] [address] [id number] [place] [address]- 6275 Sep, [facility] [place] [facility] [address] [id number] [place] [address]- 6200 Sep, [facility] [place] [facility] [address] [id number] [place] [address]- 7485 Sep, [facility] [place] [facility] [address] [id number] [place] [address]- 2805 Sep, [facility] [place] [facility] [address] [id number] [place] [address]- 8283 Aug, [facility] [place] [facility] [address] [id number] [place] [address]- 8379 Aug, [facility] [place] [facility] [address] [id number] [place] [address]- 5166 Aug, [facility] [place] [facility] [address] [id number] [place] [address] Jul, [facility] [place] [facility] [address] [id number] [place] [address] Jul, [facility] [place] [facility] [address] [id number] [place] [address] Jul, [facility] [place] [facility] [address] [id number] [place] [address] Jul, [facility] [place] [facility] [address] [id number] [place] [address] Jun, [facility] [place] [facility] [address] [id number] [place] [address] Jun, [facility] [place] [facility] [address] [id number] [place] [address] Jun, [facility] [place] [facility] [address] [id number] [place] [address] Jun, [facility] [place] [facility] [address] [id number] [place] [address] Jun, [facility] [place] [facility] [address] [id number] [place] [address] 17[address] Jun, [facility] [place] [facility] [address] [id number] [place] [address] Mar, [facility] [place] [facility] [address] [id number] [place] [address]26 Dec, [facility] [place] [facility] [address] [id number] [place] [address] Dec, [facility] [address] [id number] [place] [address] 18 Nov, 2010 [facility] [place] [facility] [address] [id number] [place] [address] 16 Nov, 2010 [facility] [place] [facility] [address] [id number] [place] [address]- [address]457 10 Sep, 2010 [facility] [place] [facility] [address] [id number] [place] [address]- [address] 31 Aug, 2010 [facility] [place] [facility] [address] [id number] [place] [address]- 2904 29 Aug, 2010 [facility] [place] [facility] [address] [id number] [place] [address]- 0629 29 Aug, 2010 [facility] [place] [facility] [address] [id number] [place] [address]- 1420 29 Aug, 2010 [facility] [place] [facility] [address] [id number] [place] [address]- 9162 27 Aug, 2010 [facility] [place] [facility] [address] [id number] [place] [address]- 3638 14 Aug, 2010 [facility] [place] [facility] [address] [id number] [place] [address]- 59[address] 08 Aug, 2010 [facility] [place] [facility] [address] [id number] [place] [address]- 1302 08 Aug, 2010 [facility] [place] [facility] [address] [id number] [place] [address]- 5371 07 Aug, 2010 [facility] [place] [facility] [address] [id number] [place] [address]- 0436 06 Aug, 2010 [facility] [place] [facility] [address] [id number] [place] [address] 2546 06 Aug, 2010 [facility] [place] [facility] [address] [id number] [place] [address]- [address] Aug, [facility] [place] [facility] [address] [id number] [place] [address]- [address]79 30 Jul, 2010 [facility] [place] [facility] [address] [id number] [place] [address]- [address]265 30 Jul, 2010 [facility] [place] [facility] [address] [id number] [place] [address]- 2626 30 Jul, 2010 [facility] [place] [facility] [address] [id number] [place] [address]- 7676 17 Jul, 2010 [facility] [place] [facility] [address] [id number] [place] [address]- 1682 08 Jul, 2010 [facility] [place] [facility] [address] [id number] [place] [address], [place] [address]- [address] Jul, [facility] [place] [facility] [address] [id number] [place] [address]- [address]394 24 Jun, 2010 [facility] [place] [facility] [address] [id number] [place] [address]- [address] Jun, [facility] [place] [facility] [address] [id number] [place] [address]- 5729 Jun, [facility] [place] [facility] [address] [id number] [place] [address]- 3973 Jun, [facility] [place] [facility] [address] [facility] [id number] [place] [address]- [address]279 16 Apr, 2010 [facility] [place] [facility] [address] [id number] [place] [address] Mar, [facility] [place] [facility] [address] [id number], [place] [address] Feb, [facility] [place] [facility] [address] [id number] [place] [address] 47[address] January, [facility] [place] [facility] [address] [id number] [place] [address]- 3180 15 Dec, 2009 [facility] [place] [facility] [address] [id number], [place] [address] Nov, [facility] [place] [facility] [address] [id number] [place] [address]- [address] 31 Aug, 2009 [facility] [place] [facility] [address] [id number] [place] [address]- 9596 23 Aug, 2009 [facility] [place] [facility] [address] [id number] [place] [address] 2546 Aug, [facility] [place] [facility] [address] [id number] [place] [address]- 4266 Jul, [facility] [place] [facility] [address] [id number] [place] [address] 2546 Jul, [facility] [place] [facility] [address] [id number] [place] [address]- 1566 Jul, [facility] [place] [facility] [address] [id number] [place] [address]- 8914 30 Jun, 2009 [facility] [place] [facility] [address] [id number] [place] [address]- 7927 Jun, [facility] [place] [facility] [address] [id number] [place] [address]- 7749 Jun, [facility] [place] [facility] [address] [id number] [place] [address]- 0688 Jun, [facility] [place] [facility] [address] [facility] [id number] [place] [address]- 9026 Jun, [facility] [place] [facility] [address] [id number], [place] [address] Jun, [facility] [place] [facility] [address] [id number] [place] [address] 2546 Apr, [facility] [place] [facility] [address] [id number] [place] [address] 2546 Apr, [facility] [place] [facility] [address] [id number], [place] [address] Feb, [facility] [place] [facility] [address] [id number], [place] [address] January, [facility] [address] [facility] [id number] [place] [address] Dec, IMMUNIZATIONS No Known Immunizations SOCIAL HISTORY Never Assessed REASON FOR VISIT f/u Karoline Cho MA, contract PLAN OF CARE Activity Details Follow Up 3 Months Reason: VITAL SIGNS Height 67 in 2018-04-17 Weight 353.9 lbs 2018-04-17 Heart Rate 66 bpm 2018-04-17 Respiratory Rate 18 2018-04-17 BMI 55.42 kg/m2 2018-04-17 Blood pressure systolic 160 mmHg 2018-04-17 Blood pressure diastolic 60 mmHg 2018-04-17 MEDICATIONS Medication Instructions Dosage Frequency Start Date End Date Duration Status Symbicort 80-4.5 MCG/ACT Inhalation Twice a day 2 puffs 12h 30 Active Voltaren 1 % Transdermal every 4-6 hours as needed 4grams to knee and hip 5 Active Levemir 100 UNIT/ML Subcutaneous 2 times a day inject 100 units 12h 14 Oct 30 days Active NovoLog Flexpen 100 UNIT/ML INJECT 30 UNITS SUBCUTANEOUSLY WITH BREAKFAST, 30 UNITS WITH LUNCH AND 40 UNITS WITH EVENING MEAL 90 Active Potassium Chloride Kathi ER 20 MEQ Orally Once a day 1 tablet with food 24h 30 days Active Glucocard Expression Test - as directed Sep, Active Losartan Potassium 100 MG Orally Once a day 1 tablet 24h Active Victoza 18 MG/3ML INJECT 1.8MG SUBCUTANEOUSLY ONCE DAILY 90 Active Gabapentin 300 MG Orally 3 times a day 2 capsules 8h Mar, Active Atorvastatin Calcium 20 MG Orally Once a day 1 tablet at bedtime 24h Active Vitamin D3 1,000 unit 2 capsule by Oral route 1 time per day Apr, Active Aspirin 81 mg 1 tablet by Oral route 1 time per day Apr, Active Zofran ODT 8 MG Orally Twice a day as needed 1 tablet on the tongue and allow to dissolve Mar, Active Abilify 30 MG TAKE ONE TABLET BY MOUTH ONCE DAILY Active Clonidine HCl 0.1 MG Orally 2 times a day 1 tablet 12h 90 Active Nexium 40 MG Orally Once a day 1 capsule 24h 90 Active Clopidogrel Bisulfate 75 MG Orally Once a day 1 tablet 24h 90 Active Imbruvica 140 MG Orally Once a day 3 capsules in the evening 24h Oct, Active Fluticasone Propionate 50 MCG/ACT Nasally Once a day 1 spray in each nostril 24h 30 Active Valium 5 mg Orally Twice a day as needed for anxiety 1 tablet Oct, Active Metoprolol Succinate ER 100 mg Orally twice a day 1 tablet 12h 90 days Active Allopurinol 300 MG Orally Once a day 1 tablet 24h Mar, 90 days Active Singulair 10 mg Orally Once a day 1 Tablet by Oral route 1 time per day 24h Nov, 90 days Active Incruse Ellipta 62.5 MCG/INH Inhalation Once a day 1 puff 24h 90 Active Furosemide 20 MG Orally Once a day 3 tablets 24h Mar, 30 Active Trintellix 20 MG TAKE ONE (1) TABLET BY MOUTH ONCE DAILY Active Ventolin HFA 108 (90 Base) MCG/ACT Inhalation every 4 hrs 2 puffs as needed 4h 30 Active Flomax 0.4 mg Orally Once a day 1 capsule 30 minutes after the same meal each day 24h 90 Active Ambien 10 mg Orally at bedtime as needed for sleep 1 tablet Nov, Active Silver Sulfadiazine 1 % Externally Once a day 1 application to affected area 24h Feb, Active Percocet 10-325 MG Orally 4 times a day 1 tablet as needed 6h Mar, 28 days Active Naproxen 500 MG TAKE ONE TABLET BY MOUTH EVERY 12 HOURS NEEDED FOR HEADACHE Active RESULTS No Results PROCEDURES Procedure Date Ordered Result Body Site [facility] VISIT ESTABLISHED PATIENT April 17, 2018 INSTRUCTIONS MEDICATIONS ADMINISTERED No Known [...] tunnel release (Left) 2000 Surgical History EGD ([facility]) 2009 Surgical History colonoscopy 2009 ([facility]), 2013 ([facility]) Surgical History heart cath: CAD w/ PTCA [...] History inability to urinate 09/16/15 Hospitalization History [facility] health early Hospitalization History hyperkalemia 10/2017 Hospitalization History fluid in lung
--- OUTSIDE RECORDS SUMMARY | 2018-08-08 13:52 | XMS REPORT ---
Author Author NOEMI WASHBURN Organization [facility] Address [address] [place] [address] Care Team Providers Care Building Services Supervisor Name Role Phone NOEMI WASHBURN Unavailable PROBLEMS Type Condition ICD9-CM Code YCL63-HJ Code Onset Dates Condition Status SNOMED Code Problem Chronic lymphocytic leukemia C91.10 Active 25854418 Problem Lymphocytosis D72.820 Active 44056210 Problem Eye exam abnormal R93.8 Active 859545847 Problem Eustachian tube dysfunction, unspecified laterality H69.80 Active 64090526 Problem Essential hypertension I10 Active 22247195 Problem Dysuria R30.0 Active 78642692 Problem Diabetic polyneuropathy associated with type 2 diabetes mellitus E11.42 Active 16615518 Problem Cough R05 Active 01052605 Problem Polyneuropathy associated with underlying disease G63 Active 052436049 Problem Retinal edema H35.81 Active 1648832 Problem Bilateral primary osteoarthritis of knee M17.0 Active 697519867 Problem Primary osteoarthritis of right knee M17.11 Active 811029908593657 Problem Pure hypercholesterolemia E78.00 Active 115905096 Problem DM neuro manif type II E11.49 Active 07919174 Problem Benign prostatic hyperplasia with lower urinary tract symptoms, unspecified morphology N40.1 Active 098154132 Problem Hypokalemia E87.6 Active 45768592 Problem 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 Active 616083768 Problem Anemia of chronic illness D63.8 Active 564907933 Problem Bipolar disorder, in partial remission, most recent episode depressed F31.75 Active 99610797 Problem Falling R29.6 Active 605508152 Problem Leukocytosis D72.829 Active 885229722 Problem Reactive airway disease J45.909 Active 778277844873 Problem Diabetes E11.9 Active 20747770 Problem Chronic pain G89.29 Active 78096466 Problem Anxiety F41.9 Active 33476594 Problem Morbid obesity E66.01 Active 436163115 Problem Bipolar I disorder, most recent episode (or current) mixed, moderate F31.62 Active 35131555 Problem Insomnia, unspecified type G47.00 Active 928695126 ALLERGIES No Information ENCOUNTERS Encounter Location Date Diagnosis [facility] [id number] [place] [address] 75849- 0161 Jun, [facility] [id number] [place] [address] 90614- 3395 May, Chronic pain G89.29 [facility] [id number] [place] [address] 78694- 7589 Apr, [facility] [id number] [place] [address] 53884- 8725 Apr, Chronic pain G89.29 [facility] [id number] [place] [address] 27222- 4125 Apr, Primary osteoarthritis of right knee M17.11 [facility] [id number] [place] [address] 28402- 1038 Mar, [facility] [id number] [place] [address] 60449- 8475 Mar, BMI 50.0-59.9, adult Z68.43 and Bipolar disorder, in partial remission, most recent episode depressed F31.75 [facility] [id number] [place] [address] 91791- 9312 Mar, Diabetes E11.9 ; Pure hypercholesterolemia E78.00 ; Essential hypertension I10 ; Nausea with vomiting, unspecified R11.2 and Headache, unspecified headache type R51 [facility] [id number] [place] [address] 75743- 3517 Mar, Bipolar I disorder, most recent episode (or current) mixed, moderate F31.62 [facility] [id number] [place] [address] 59734- 9507 Mar, Bipolar I disorder, most recent episode (or current) mixed, moderate F31.62 [facility] [address] [place] [address] 7496 13 Mar, 2018 Chronic pain G89.29 [facility] [id number] [place] [address] 95281- 6062 Mar, Bipolar I disorder, most recent episode (or current) mixed, moderate F31.62 [facility] [id number] [place] [address] 00492- 3044 Feb, Bipolar I disorder, most recent episode (or current) mixed, moderate F31.62 [facility] [id number] [place] [address] 20768- 6346 Feb, Chronic pain G89.29 [facility] [id number] [place] [address] 30881- 0967 Feb, Decubitus ulcer of right foot, stage 3 L89.893 and BMI 50.0- 59.9, adult Z68.43 [facility] [id number] [place] [address] 81446- 8148 Feb, Bipolar I disorder, most recent episode (or current) mixed, moderate F31.62 [facility] [id number] [place] [address] 43599- 7616 Feb, [facility] [id number] [place] [address] 65529- 0175 January, [facility] [id number] [place] [address] 07244- 6735 January, Chronic pain G89.29 [facility] [id number] [place] [address] 62630- 0306 January, Bipolar I disorder, most recent episode (or current) mixed, moderate F31.62 [facility] [id number] [place] [address] 34953- 7570 January, Bipolar I disorder, most recent episode (or current) mixed, moderate F31.62 [facility] [id number] [place] [address] 57168- 8168 Dec, Bipolar I disorder, most recent episode (or current) mixed, moderate F31.62 and BMI 50.0-59.9, adult Z68.43 [facility] [id number] [place] [address] 70376- 2277 Dec, Bipolar I disorder, most recent episode (or current) mixed, moderate F31.62 [facility] [id number] [place] [address] 41711- 7824 Dec, Chronic pain G89.29 [facility] [id number] [place] [address] 85367- 7146 Dec, DM neuro manif type II E11.49 ; Right flank pain R10.9 ; care home 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 Z79.891 ; Encounter for medication monitoring Z51.81 and BMI 50.0-59.9, adult Z68.43 [facility] [id number] [place] [address] 72117- 8019 Dec, Bipolar I disorder, most recent episode (or current) mixed, moderate F31.62 [facility] [id number] [place] [address] 17300- 7958 Nov, Bipolar I disorder, most recent episode (or current) mixed, moderate F31.62 [facility] [id number] [place] [address] 83411- 6754 Nov, Chronic pain G89.29 [facility] [id number] [place] [address] 75070- 5889 Nov, Bipolar I disorder, most recent episode (or current) mixed, moderate F31.62 [facility] [id number] [place] [address] 15330- 0550 Nov, Hypokalemia E87.6 [facility] [id number] [place] [address] 95116- 2209 Nov, Bipolar I disorder, most recent episode (or current) mixed, moderate F31.62 [facility] [id number] [place] [address] 09339- 8865 Oct, Chronic pain G89.29 [facility] [address] 34644- 9133 Oct, BMI 50.0-59.9, adult Z68.43 and Bipolar I disorder, most recent episode (or current) mixed, moderate F31.62 [facility] [address] 63085- 4939 Oct, Bipolar I disorder, most recent episode (or current) mixed, moderate F31.62 [facility] [address] 95446- 7829 Oct, [facility] [address] 55070- 1003 Oct, Hypokalemia E87.6 [facility] [address] 34535- 9681 Oct, DM neuro manif type II E11.49 [facility] [id number] [place] [address] 81107- 0241 Oct, Bipolar I disorder, most recent episode (or current) mixed, moderate F31.62 [facility] [id number] [place] [address] 76722- 2740 Oct, Bipolar I disorder, most recent episode (or current) mixed, moderate F31.62 [facility] [id number] [place] [address] 34259- 4912 14 Oct, 2017 Hyperkalemia E87.5 ; Falling R29.6 ; BMI 50.0-59.9, adult Z68.43 and Acute left ankle pain M25.572 [facility] [id number] [place] [address] 89005- 2678 08 Oct, 2017 DM neuro manif type II E11.49 [facility] [address] 85690- 7987 Oct, [facility] [id number] [place] [address] 13025- 4756 Sep, Chronic pain G89.29 [facility] [id number] [place] [address] 67787- 8064 Sep, [facility] [id number] [place] [address] 42746- 8045 Sep, Bilateral primary osteoarthritis of knee M17.0 [facility] [id number] [place] [address] 60657- 0181 Sep, Generalized edema R60.1 [facility] [id number] [place] [address] 16022- 0411 Sep, Bipolar I disorder, most recent episode (or current) mixed, moderate F31.62 [facility] [id number] [place] [address] 52102- 0085 Sep, Hypoxia R09.02 ; Other hypervolemia E87.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 ; Anemia of chronic illness D63.8 and BMI 50.0- 59.9, adult Z68.43 [facility] [id number] [place] [address] 05778- 3223 Sep, [facility] [id number] [place] [address] 63142- 9477 Sep, Bipolar I disorder, most recent episode (or current) mixed, moderate F31.62 [facility] [id number] [place] [address] 65540- 8214 Aug, Chronic pain G89.29 [facility] [id number] [place] [address] 27636- 7701 Aug, Generalized edema R60.1 [facility] [id number] [place] [address] 02682- 3954 Aug, [facility] [id number] [place] [address] 89831- 0513 Aug, [facility] [id number] [place] [address]- 5778 Aug, Bipolar I disorder, most recent episode (or current) mixed, moderate F31.62 [facility] [id number] [place] [address] 40490- 9182 Aug, Bipolar I disorder, most recent episode (or current) mixed, moderate F31.62 [facility] [id number] [place] [address] 31003- 9699 Aug, Chronic pain G89.29 [facility] [id number] [place] [address] 83626- 6125 Jul, Bipolar I disorder, most recent episode (or current) mixed, moderate F31.62 [facility] [id number] [place] [address] 72597- 6078 Jul, Bipolar I disorder, most recent episode (or current) mixed, moderate F31.62 and BMI 60.0-69.9, adult Z68.44 [facility] [id number] [place] [address] 53185- 8498 Jul, Bipolar I disorder, most recent episode (or current) mixed, moderate F31.62 [facility] [id number] [place] [address] 80964- 3690 Jul, Chronic pain G89.29 [facility] [id number] [place] [address] 74690- 8636 02 Jul, 2017 Bipolar I disorder, most recent episode (or current) mixed, moderate F31.62 [facility] [id number] [place] [address] 72492- 0559 Jun, Polyneuropathy associated with underlying disease G63 and Diabetes E11.9 [place] [id number] [place] [address] 23391- 4450 16 Jun, 2017 Bipolar I disorder, most recent episode (or current) mixed, moderate F31.62 [facility] [id number] [place] [address] 536253- 1012 09 Jun, 2017 Chronic pain G89.29 [facility] [id number] [place] [address] 37758- 5567 27 May, 2017 Bipolar I disorder, most recent episode (or current) mixed, moderate F31.62 [facility] [id number] [place] [address] 92252- 9864 21 May, 2017 Bipolar I disorder, most recent episode (or current) mixed, moderate F31.62 [facility] [id number] [place] [address] 49655- 5074 20 May, 2017 Diabetic polyneuropathy associated with type 2 diabetes mellitus E11.42 [facility] [id number] [place] [address] 88886- 5020 18 May, 2017 Bipolar I disorder, most recent episode (or current) mixed, moderate F31.62 [facility] [id number] [place] [address] 30279- 5575 13 May, 2017 Bipolar I disorder, most recent episode (or current) mixed, moderate F31.62 [facility] [id number] [place] [address] 98327- 7723 May, Chronic pain G89.29 [facility] [id number] [place] [address] 92700- 0603 Apr, Bipolar I disorder, most recent episode (or current) mixed, moderate F31.62 [facility] [id number] [place] [address] 72045- 7545 Apr, [facility] [id number] [place] [address] 7246 Apr, Chronic pain G89.29 and DM neuro manif type II E11.49 [facility] [id number] [place] [address] 03168- 4352 Apr, [facility] [address] [address]- 8998 Apr, Bipolar I disorder, most recent episode (or current) mixed, moderate F31.62 [facility] [address] [address]- 7326 Apr, Chronic pain G89.29 [facility] [id number] [place] [address] 27052- 3966 Apr, Iliotibial band syndrome, left M76.32 [facility] [id number] [place] [address] 13890- 2663 Apr, Bipolar I disorder, most recent episode (or current) mixed, moderate F31.62 [facility] [id number] [place] [address] 46824- 6188 Mar, Bipolar I disorder, most recent episode (or current) mixed, moderate F31.62 [facility] [address] [address]- 1158 Mar, Bipolar I disorder, most recent episode (or current) mixed, moderate F31.62 [facility] [address] [address]- 3561 Mar, [facility] [address] [address]- 9786 Mar, Bipolar I disorder, most recent episode (or current) mixed, moderate F31.62 [facility] [address] [address]- 5275 Mar, Chronic pain G89.29 [facility] [id number] [place] [address] 79133- 7733 Mar, Bipolar I disorder, most recent episode (or current) mixed, moderate F31.62 [facility] [address] [address]- 8089 Mar, Bipolar I disorder, most recent episode (or current) mixed, moderate F31.62 [facility] [address] [address]- 5241 Mar, Acute pain of left knee M25.562 ; Left hip pain M25.552 ; Generalized edema R60.1 and Tongue swelling R22.0 [facility] [address] [address]- 0588 Mar, [facility] [id number] [place] [address] 46483- 2240 Feb, Chronic pain G89.29 [facility] [id number] [place] [address] 98425- 8386 Feb, Diabetes E11.9 [facility] [id number] [place] [address] 69037- 0735 January, Chronic pain G89.29 [facility] [id number] [place] [address] 79959- 0256 January, [facility] [id number] [place] [address] 78914- 2142 January, Bipolar I disorder, most recent episode (or current) mixed, moderate F31.62 [facility] [address] [address]- 0971 Dec, Bipolar I disorder, most recent episode (or current) mixed, moderate F31.62 [facility] [address] [address]- 0845 Dec, Chronic pain G89.29 [facility] [address] [address]- 6719 Dec, Bipolar I disorder, most recent episode (or current) mixed, moderate F31.62 [facility] [address] [address]- 5098 Dec, Diabetes E11.9 ; Essential hypertension I10 ; Chronic pain G89.29 and Morbid obesity E66.01 [facility] [address] [address]- 1935 Dec, [facility] [address] [address]- 8463 Dec, Bipolar I disorder, most recent episode (or current) mixed, moderate F31.62 [facility] [address] [address]- 9848 Dec, Bipolar I disorder, most recent episode (or current) mixed, moderate F31.62 [facility] [address] [address]- 4856 Nov, Chronic pain G89.29 [facility] [id number] [place] [address] 87090- 2407 Nov, Bipolar I disorder, most recent episode (or current) mixed, moderate F31.62 [facility] [address] [address]- 8372 Nov, [facility] [id number] [place] [address] 39398- 6855 Nov, Bipolar I disorder, most recent episode (or current) mixed, moderate F31.62 [facility] [address] [address]- 1171 Nov, Bipolar I disorder, most recent episode (or current) mixed, moderate F31.62 [facility] [address] [address]- 7575 Nov, [facility] [address] [address]- 9816 Nov, [facility] [address] [address]- 3596 Nov, [facility] [address] [address]- 6483 Oct, Chronic pain G89.29 [facility] [address] [place] [address] 40571- 1097 Oct, Bipolar I disorder, most recent episode (or current) mixed, moderate F31.62 [facility] [id number] [place] [address] 24059- 9356 Oct, [facility] [id number] [place] [address] 41502- 7016 15 Oct, 2016 Chronic pain G89.29 ; Diabetes E11.9 ; Anxiety F41.9 and 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 [facility] [id number] [place] [address] 21347- 7835 Oct, [facility] [id number] [place] [address] 97566- 0071 Oct, Diabetes E11.9 [facility] [id number] [place] [address] 80811- 2169 Oct, Bipolar I disorder, most recent episode (or current) mixed, moderate F31.62 [facility] [id number] [place] [address] 69786- 2503 Sep, Chronic pain G89.29 [facility] [id number] [place] [address] 05290- 4483 Sep, Chronic pain G89.29 [facility] [id number] [place] [address] 38438- 0976 Aug, Chronic pain G89.29 [facility] [id number] [place] [address] 59887- 2856 Jul, [facility] [id number] [place] [address] 10564- 6726 Jul, Diabetes E11.9 [facility] [id number] [place] [address] 10399- 2546 Jul, Chronic pain G89.29 [facility] [id number] [place] [address] 29173- 1488 Jul, Bipolar I disorder, most recent episode (or current) mixed, moderate F31.62 [facility] [id number] [place] [address] 43271- 0196 Jun, Bipolar I disorder, most recent episode (or current) mixed, moderate F31.62 [facility] [id number] [place] [address] 17796- 1595 Jun, [facility] [address] 88554- 0206 Jun, Bipolar I disorder, most recent episode (or current) mixed, moderate F31.62 [facility] [address] 03189- 9843 May, Insomnia, unspecified type G47.00 [facility] [facility] [address] 18172- 0217 May, Bipolar I disorder, most recent episode (or current) mixed, moderate F31.62 [facility] [id number] [place] [address] 21175- 1147 14 May, 2016 [facility] [facility] [address] 20376- 6494 May, Bipolar I disorder, most recent episode (or current) mixed, moderate F31.62 [facility] [id number] [place] [address] 93218- 7033 May, Diabetes E11.9 and Essential hypertension I10 [facility] [id number] [place] [address] 12898- 5099 Apr, Chronic pain G89.29 [facility] [address] 69450- 8756 Apr, Bipolar I disorder, most recent episode (or current) mixed, moderate F31.62 [facility] [id number] [place] [address] 06629- 2686 Apr, [facility] [address] [place] [address]- 7330 Apr, [facility] [id number] [place] [address] 88279- 8513 Mar, Chronic pain G89.29 ; Headache, unspecified headache type R51 ; Neuropathy G62.9 ; Pain of right hip joint M25.551 and Essential hypertension I10 [facility] [facility] [id number] [place] [address] 02061- 2978 Mar, Chronic pain G89.29 [facility] [facility] [address] 75472- 7220 Mar, Bipolar I disorder, most recent episode (or current) mixed, moderate F31.62 [facility] [id number] [place] [address] 30625- 3403 Feb, Bipolar I disorder, most recent episode (or current) mixed, moderate F31.62 and Insomnia, unspecified type G47.00 [facility] [facility] [id number] [place] [address] 15558- 0964 Feb, Chronic pain G89.29 [facility] [id number] [place] [address] 58192- 4355 Feb, Bipolar I disorder, most recent episode (or current) mixed, moderate F31.62 [facility] [id number] [place] [address] 07983- 4757 January, Bipolar I disorder, most recent episode (or current) mixed, moderate F31.62 [facility] [id number] [place] [address] 97145- 4968 January, Chronic pain G89.29 [facility] [id number] [place] [address] 34845- 3038 January, Chronic pain G89.29 and Essential hypertension I10 [facility] [id number] [place] [address] 35782- 9968 January, Bipolar I disorder, most recent episode (or current) mixed, moderate F31.62 [facility] [id number] [place] [address] 64155- 5606 Dec, [facility] [id number] [place] [address] 93910- 1157 Dec, [facility] [id number] [place] [address] 19337- 8778 Dec, [facility] [id number] [place] [address] [phone]- [phone] Dec, [facility] [id number] [place] [address] 60864- 7797 Nov, Reactive airway disease J45.909 [facility] [id number] [place] [address] 51899- 8818 Nov, [facility] [address] [phone]- [phone] Nov, [facility] [id number] [place] [address] 11683- [phone] Nov, [facility] [id number] [place] [address] [phone]- 6042 Nov, [facility] [id number] [place] [address] [id number]- 7073 Nov, Onychomycosis B35.1 ; Hammertoe M20.40 ; [place] or callus L84 and DM neuro manif type II E11.49 [facility] [id number] [place] [address] [id number]- [phone] Nov, Chronic pain G89.29 ; Leukocytosis D72.829 and Diabetes E11.9 [facility] [id number] [place] [address] [id number]- 7974 Nov, [facility] [id number] [place] [address] 86550- 7512 Oct, Bronchitis J40 [facility] [id number] [place] [address] 65151- 6790 Oct, [facility] [id number] [place] [address] 13593- 0966 Oct, [id number] [place] [address] 34007- 8533 Oct, Mastoiditis, unspecified laterality H70.90 and Type 2 diabetes mellitus with complication E11.8 [place] [id number] [place] [address] 21100- 2797 Sep, [facility] [id number] [place] [address] 34595- 0457 Sep, Dysuria R30.0 ; Cough R05 ; Benign prostatic hyperplasia with lower urinary tract symptoms, unspecified morphology N40.1 ; Hypokalemia E87.6 and Eustachian tube dysfunction, unspecified laterality H69.80 [place] [id number] [place] [address] 82762- 9703 Sep, Moderate mixed bipolar I disorder F31.62 [place] [facility] [id number] [place] [address] 47597- 0908 Sep, Hypokalemia E87.6 [place] [id number] [place] [address] 58835- 0179 Sep, [place] [id number] [place] [address] 27553- 4329 Sep, Upper respiratory tract infection, unspecified type J06.9 [place] [id number] [place] [address] 48351- 9414 Aug, [place] [id number] [place] [address] 98303- 7032 Aug, Dysuria R30.0 [address] [id number] [place] [address] 61168- 0620 Aug, [place] [id number] [place] [address] 09884- 0761 Jul, [facility] [address] [address] 8768 Jul, [facility] [address] [address]- 7432 Jul, [facility] [address] 5864 Jul, [facility] [id number] [place] [address] 498920- 6373 Jun, [facility] [id number] [place] [address] 31934- 4921 Jun, [facility] [id number] [place] [address] 21358- 5912 Jun, [facility] [address] [address]- 1375 May, [facility] [address] [address]- 2033 May, Bipolar I disorder, most recent episode (or current) mixed, moderate 296.62 [facility] [address] [address]- 0105 May, [facility] [address] [address]- 0713 May, Bipolar I disorder, most recent episode (or current) mixed, moderate 296.62 and Major depressive disorder, recurrent episode, severe, specified as with psychotic behavior 296.34 [facility] [address] [address]- 8125 May, Bipolar I disorder, most recent episode (or current) mixed, moderate 296.62 [facility] [address] 0311 May, [facility] [address] [address]- 6601 Apr, [facility] [address] [address]- 4500 Apr, [facility] [id number] [place] [address] 27028- 6744 Apr, Unspecified disorder of kidney and ureter 593.9 and Diabetes mellitus type 2, uncontrolled 250.02 [facility] [id number] [address]- 8338 Apr, [facility] [id number] [place] [address] 36686- 3445 Apr, [facility] [id number] [place] [address] 98766- 7015 Apr, [facility] [id number] [place] [address] 30440- 8035 Apr, [facility] [id number] [place] [address] 49959- 2793 Apr, Diabetes mellitus type II, uncontrolled 250.02 [facility] [id number] [place] [address] 07645- 0324 Apr, [facility] [id number] [place] [address] 36790- 8862 Mar, [facility] [address] [address]- 5620 Mar, [facility] [id number] [place] [address] 27097- 8418 Mar, [facility] [address] [address]- 8443 Mar, Major depressive disorder, recurrent episode, severe, specified as with psychotic behavior 296.34 and Bipolar I disorder, most recent episode (or current) mixed, moderate 296.62 [facility] [address] [address]- 6000 Mar, Diabetes 250.00 ; Anuria 788.5 ; Nausea and vomiting 787.01 and Diarrhea 787.91 [facility] [address] [address]- 0130 Mar, Diabetes 250.00 [facility] [id number] [place] [address] 52245- 6196 Mar, [facility] [id number] [place] [address] 77140- 8525 Mar, Diabetes 250.00 [facility] [id number] [place] [address] 65221- 9257 Mar, [facility] [id number] [place] [address] 00354- 9427 Mar, [facility] [id number] [place] [address] 56138- 2329 Mar, [facility] [id number] [place] [address] 00171- 8125 Mar, [facility] [id number] [place] [address] 45830- 5245 Mar, Bipolar I disorder, most recent episode (or current) mixed, moderate 296.62 and Major depressive disorder, recurrent episode, severe, specified as with psychotic behavior 296.34 [facility] [id number] [place] [address] 73627- 0057 Mar, Magnesium deficiency 275.2 ; Hypokalemia 276.8 ; Nausea & vomiting 787.01 and Diabetes mellitus type 2, uncontrolled 250.02 [facility] [id number] [place] [address] 11456- 8295 Feb, [facility] [id number] [place] [address] 45614- 6542 Feb, Bipolar I disorder, most recent episode (or current) mixed, moderate 296.62 [facility] [address] [address]- 1412 Feb, Nausea and vomiting 787.01 ; Left elbow pain 719.42 ; Anuria 788.5 and Diabetes 250.00 [facility] [address] [address]- 3357 Feb, [facility] [id number] [place] [address] 33758- 6309 Feb, Hypopotassemia 276.8 and Hypokalemia 276.8 [facility] [id number] [place] [address] 03644- 8536 Feb, Hypopotassemia 276.8 and Hypokalemia 276.8 [facility] [id number] [place] [address] 65956- 9123 Feb, Seborrheic keratoses 702.19 [facility] [id number] [place] [address] 84004- 2678 Feb, Hypopotassemia 276.8 and Low magnesium levels 275.2 [facility] [id number] [place] [address] 61391- 0950 January, [facility] [id number] [place] [address] 63728- 3602 January, [facility] [id number] [place] [address] 56353- 3445 January, [facility] [id number] [place] [address] 03199- 7724 January, Scalp lesion 709.9 [facility] [id number] [place] [address] 59443- 1675 January, [facility] [id number] [place] [address] 37693- 3301 Dec, Tear of medial cartilage or meniscus of knee, current 836.0 and 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 [facility] [address] [address]- 3969 Dec, [facility] [id number] [place] [address] 13405- 0890 Dec, [facility] [address] [id number] [place] [address]- 6047 28 Dec, 2014 Squamous cell carcinoma, 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 [facility] [place] [facility] [address] [id number] [place] [address]- 7460 14 Dec, 2014 [facility] [place] [facility] [address] [facility] [id number] [place] [address]- 7031 13 Dec, 2014 [facility] [place] [facility] [address] [id number] [place] [address]- 6496 27 Nov, 2014 [facility] [place] [facility] [address] [id number] [place] [address]- 2243 Nov, [facility] [place] [facility] [address] [id number] [place] [address]- 3573 Nov, [facility] [place] [facility] [address] [id number] [place] [address]- 2731 Nov, [facility] [place] [facility] [address] [id number] [place] [address]- 1233 Nov, [facility] [place] [facility] [address] [id number] [place] [address]- 6178 Nov, [facility] [place] [facility] [address] [facility] [id number] [place] [address]- 1141 Nov, [facility] [place] [facility] [address] [id number] [place] [address]- 2748 Nov, [facility] [place] [facility] [address] [id number] [address]- 7963 Nov, [facility] [place] [facility] [address] [id number] [place] [address]- 3935 Nov, [facility] [place] [facility] [address] [facility] [id number] [place] [address]- 8440 Nov, [facility] [place] [facility] [address] [facility] [id number] [place] [address]- 9048 Nov, [facility] [place] [facility] [address] [facility] [id number] [place] [address]- 1088 Oct, 2014 [facility] [place] [facility] [address] [id number] [place] [address]- 6514 Oct, 2014 [facility] [place] [facility] [address] [id number] [place] [address]- 7326 Oct, 2014 [facility] [place] [facility] [address] [id number] [place] [address]- 3864 Oct, 2014 [facility] [place] [facility] [address] [id number] [place] [address]- 0873 Oct, 2014 [facility] [place] [facility] [address] [id number] [place] [address]- 3294 Oct, 2014 [facility] [place] [facility] [address] [facility] [id number] [place] [address]- 2127 Oct, 2014 [facility] [place] [facility] [address] [facility] [id number] [place] [address]- 3035 Oct, 2014 [facility] [place] [facility] [address] [facility] [id number] [place] [address]- 3547 Oct, [facility] [place] [facility] [address] [facility] [id number] [place] [address]- 7963 Sep, [facility] [place] [facility] [address] [facility] [id number] [place] [address]- 6063 Sep, [facility] [place] [facility] [address] [facility] [id number] [address]- 0283 Sep, [facility] [place] [facility] [address] [id number] [place] [address]- 5429 Sep, [facility] [place] [facility] [address] [facility] [id number] [place] [address]- 5164 Sep, [facility] [place] [facility] [address] [facility] [id number] [place] [address]- 9720 Sep, [facility] [place] [facility] [address] [facility] [id number] [address]- 6420 Sep, [facility] [place] [facility] [address] [id number] [place] [address]- 3701 Sep, [facility] [place] [facility] [address] [id number] [place] [address]- 1048 Sep, [facility] [place] [facility] [address] [id number] [place] [address]- 3502 Sep, [facility] [place] [facility] [address] [id number] [place] [address]- 8481 Sep, [facility] [place] [facility] [address] [id number] [place] [address]- 0334 Sep, [facility] [place] [facility] [address] [id number] [place] [address]- 7360 Sep, [facility] [place] [facility] [address] [id number] [place] [address]- 3992 Sep, [facility] [place] [facility] [address] [id number] [place] [address]- 8690 Sep, [facility] [place] [facility] [address] [id number] [place] [address]- 4818 Sep, [facility] [place] [facility] [address] [id number] [place] [address]- 1092 Aug, [facility] [place] [facility] [address] [id number] [place] [address]- 8939 Aug, [facility] [place] [facility] [address] [id number] [place] [address]- 6185 Aug, [facility] [place] [facility] [address] [id number] [place] [address]- 6319 Aug, [facility] [place] [facility] [address] [id number] [place] [address]- 7029 Aug, [facility] [place] [facility] [address] [id number] [place] [address]- 1079 Aug, [facility] [place] [facility] [address] [id number] [place] [address]- 4982 Aug, [facility] [address] [id number] [place] [address]- 2676 Aug, [facility] [address] [id number] [place] [address]- 2929 Aug, [facility] [address] [id number] [place] [address]- 8254 Aug, [facility] [address] [id number] [place] [address]- 1790 Aug, [facility] [address] [place] [id number] Aug, [facility] [address] [id number] [place] [address]- 8747 Aug, [facility] [address] [id number] [place] [address]- 6084 Aug, [facility] [address] [id number] [place] [address]- 2408 Aug, [facility] [address] [id number] [place] [address]- 6432 Aug, [facility] [address] [id number] [place] [address]- 2405 Aug, [facility] [address] [id number] [place] [address]- 9546 Aug, [facility] [address] [id number] [place] [address]- 3967 Aug, [facility] [address] [id number] [place] [address]- 0565 Aug, [facility] [address] [id number] [place] [address]- 7880 Aug, [facility] [address] [id number] [place] [address]- 7315 Aug, [facility] [place] [facility] [address] [id number] [place] [address]- 8709 03 Aug, 2014 [facility] [place] [facility] [address] [id number] [place] 4111 Aug, [facility] [place] [facility] [address] [id number] [place] [address]- 3890 Aug, [facility] [place] [facility] [address] [id number] [place] [address]- 3967 Aug, [facility] [place] [facility] [address] [id number] [place] [address]- 1215 Aug, [facility] [place] [facility] [address] [id number] [place] [address]- 0245 Aug, [facility] [place] [facility] [address] [id number] [place] 9100 Aug, [facility] [place] [facility] [address] [id number] [place] [address]- 7611 Aug, [facility] [place] [facility] [address] [id number] [place] [address]- 9322 Jul, [facility] [place] [facility] [address] [id number] [place] [address]- 3984 Jul, [facility] [place] [facility] [address] [id number] [place] [address]- 9795 Jul, [facility] [place] [facility] [address] [id number] [place] [address]- 9862 Jul, [facility] [place] [facility] [address] [id number] [place] [address]- 0881 Jul, [facility] [place] [facility] [address] [id number] [place] [address]- 6395 Jul, [facility] [place] [facility] [address] [id number] [place] [address]- 2885 Jul, [facility] [place] [facility] [address] [id number] [place] [address]- 8281 Jul, [facility] [place] [facility] [address] [id number] [place] [address]- 5752 Jul, [facility] [place] [facility] [address] [id number] [place] [address]- 1014 Jul, [facility] [place] [facility] [address] [id number] [place] [address]- 3300 Jun, [facility] [place] [facility] [address] [id number] [place] [address]- 7062 Jun, [facility] [place] [facility] [address] [id number] [place] [address]- 1637 Jun, [facility] [place] [facility] [address] [id number] [place] [address]- 0273 Jun, [facility] [place] [facility] [address] [id number] [place] [address]- 5561 Jun, [facility] [place] [facility] [address] [id number] [place] [address]- 7589 Jun, [facility] [place] [facility] [address] [id number] [place] [address]- 3820 Jun, [facility] [place] [facility] [address] [id number] [place] [address]- 9793 Jun, [facility] [place] [facility] [address] [id number] [address]- 5943 Jun, [facility] [place] [facility] [address] [id number] [address]- 6623 Jun, [facility] [place] [facility] [address] [id number] [place] [address]- 5196 May, [facility] [place] [facility] [address] [id number] [place] [address]- 3589 May, [facility] [place] [facility] [address] [id number] [place] [address]- 1967 May, [facility] [place] [facility] [address] [id number] [place] [address]- 4225 26 May, 2013 [facility] [place] [facility] [address] [id number] [place] [address] 2546 17 May, 2013 [facility] [place] [facility] [address] [id number] [place] [address] 2546 17 May, 2013 [facility] [place] [facility] [address] [id number] [place] [address] 2546 15 May, 2013 [facility] [place] [facility] [address] [id number] [place] [address] 2546 15 May, 2013 [facility] [place] [facility] [address] [id number] [place] [address]- 0116 15 May, 2013 [facility] [place] [facility] [address] [id number] [place] [address] 2546 15 May, 2013 [facility] [place] [facility] [address] [id number] [place] [address]- 1501 10 May, 2013 [facility] [place] [facility] [address] [id number] [place] [address] 2545 10 May, 2013 [facility] [place] [facility] [address] [id number] [place] [address]- 5687 09 May, 2013 [facility] [place] [facility] [address] [id number] [place] [address]- 254 09 May, 2013 [facility] [place] [facility] [address] [id number] [place] [address] 254 04 May, 2013 [facility] [place] [facility] [address] [id number] [place] [address] 2540 04 May, 2013 [facility] [place] [facility] [address] [id number] [place] [address]- 9918 Apr, [facility] [place] [facility] [address] [id number] [place] [address]- 1474 Apr, [facility] [place] [facility] [address] [id number] [place] [address]- 1946 Apr, [facility] [place] [facility] [address] [id number] [facility] [place] [address]- 1776 Apr, [facility] [place] [facility] [address] [id number] [place] [address]- 1489 Apr, [facility] [place] [facility] [address] [id number] [place] [address]- 5519 Apr, [facility] [place] [facility] [address] [id number] [place] [address]- 5180 Apr, [facility] [place] [facility] [address] [id number] [place] [address]- 5213 Apr, [facility] [place] [facility] [address] [id number] [place] [address] Apr, [facility] [place] [facility] [address] [id number] [place] [address] Apr, [facility] [place] [facility] [address] [id number] [place] [address] Apr, [facility] [place] [facility] [address] [id number] [place] [address] Apr, [facility] [place] [facility] [address] [id number] [place] [address] Apr, [facility] [place] [facility] [address] [id number] [place] [address] Apr, [facility] [place] [facility] [address] [id number] [place] [address] Apr, [facility] [place] [facility] [address] [id number] [place] [address] Mar, [facility] [place] [facility] [address] [id number] [place] [address] Mar, [facility] [place] [facility] [address] [id number] [place] [address] Mar, [facility] [place] [facility] [address] [id number] [place] [address] Mar, 2013 [facility] [place] [facility] [address] [id number] [place] [address] Mar, 2013 [facility] [place] [facility] [address] [id number] [place] [address] Mar, 2013 [facility] [place] [facility] [address] [id number] [place] [address] Mar, 2013 [facility] [place] [facility] [address] [id number] [place] [address]686 Mar, 2013 [facility] [place] [facility] [address] [id number] [place] [address] Mar, [facility] [place] [facility] [address] [id number] [place] [address] Mar, 2013 [facility] [place] [facility] [address] [id number] [place] [address] Mar, 2013 [facility] [place] [facility] [address] [id number] [place] [address] Mar, 2013 [facility] [place] [facility] [address] [id number] [place] [address]- [address] Mar, 2013 [facility] [place] [facility] [address] [id number] [place] [address] Mar, 2013 [facility] [place] [facility] [address] [id number] [place] [address]- [address] Mar, 2013 [facility] [place] [facility] [address] [id number] [place] [address] Mar, 2013 [facility] [place] [facility] [address] [id number] [place] [address] Mar, [facility] [place] [facility] [address] [id number] [place] [address] Mar, [facility] [place] [facility] [address] [id number] [place] [address] Feb, [facility] [place] [facility] [address] [id number] [place] [address] Feb, [facility] [place] [facility] [address] [id number] [place] [address] 76[address] Feb, [facility] [place] [facility] [address] [id number] [place] [address]- [address] Feb, [facility] [place] [facility] [address] [id number] [place] [address] Feb, [facility] [place] [facility] [address] [id number] [place] [address] Feb, [facility] [place] [facility] [address] [id number] [place] [address] Feb, [facility] [place] [facility] [address] [id number] [place] [address]- [address] Feb, [facility] [place] [facility] [address] [id number] [place] [address] Feb, [facility] [place] [facility] [address] [id number] [place] [address]294 Feb, [facility] [place] [facility] [address] [id number] [place] [address] Feb, [facility] [place] [facility] [address] [id number] [place] [address]- [address] Feb, [facility] [place] [facility] [address] [id number] [place] [address]- [address] Feb, [facility] [place] [facility] [address] [id number] [place] [address]- [address] Feb, [facility] [place] [facility] [address] [id number] [place] [address] January, [facility] [place] [facility] [address] [id number] [place] [address]35 January, [facility] [place] [facility] [address] [id number] [place] [address] 60[address] January, [facility] [address] [id number] [place] [address] January, [facility] [place] [facility] [address] [id number] [place] [address] January, [facility] [place] [facility] [address] [id number] [place] [address] January, [facility] [place] [facility] [address] [id number] [place] [address]- [address] January, [facility] [place] [facility] [address] [id number] [place] [address]- [address] January, [facility] [place] [facility] [address] [id number] [place] [address]447 January, [facility] [place] [facility] [address] [id number] [place] [address]- 1683 January, [facility] [place] [facility] [address] [id number] [place] [address] 42[address] January, [facility] [place] [facility] [address] [id number] [place] [address] 0258 January, [facility] [place] [facility] [address] [id number] [place] [address]- [address] January, [facility] [place] [facility] [address] [id number] [place] [address] January, [facility] [place] [facility] [address] [id number] [place] [address]- 89[address] Dec, [facility] [place] [facility] [address] [address] [id number] [place] [address] Dec, [facility] [place] [facility] [address] [id number] [place] [address]24 Dec, [facility] [place] [facility] [address] [id number] [place] [address] 7565 Dec, [facility] [place] [facility] [address] [id number] [place] [address] 2892 Dec, [facility] [place] [facility] [address] [id number] [place] [address]- 7568 Dec, [facility] [place] [facility] [address] [id number] [place] [address]- 6406 Dec, [facility] [place] [facility] [address] [id number] [place] [address] 8714 Dec, [facility] [place] [facility] [address] [id number] [place] [address] 4755 Dec, [facility] [place] [facility] [address] [id number] [place] [address]- 5496 Dec, [facility] [place] [facility] [address] [id number] [place] [address] 4213 Nov, [facility] [place] [facility] [address] [id number] [place] [address]- 7716 Nov, [facility] [place] [facility] [address] [id number] [place] [address]- 3337 Nov, [facility] [place] [facility] [address] [id number] [place] [address]- 8704 Nov, [facility] [place] [facility] [address] [id number] [place] [address]- 5527 Nov, [facility] [place] [facility] [address] [id number] [place] [address]- 9016 Nov, [facility] [place] [facility] [address] [id number] [place] [address]- 8034 Nov, [facility] [place] [facility] [address] [id number] [place] [address]- 7394 Nov, [facility] [place] [facility] [address] [id number] [place] [address]- 3455 Nov, [facility] [place] [facility] [address] [id number] [place] [address]- 5535 Nov, [facility] [place] [facility] [address] [id number] [place] [address]- 9371 Oct, [facility] [place] [facility] [address] [id number] [place] [address]- 5406 Oct, [facility] [place] [facility] [address] [id number] [place] [address]- 2546 Oct, [facility] [place] [facility] [address] [id number] [place] [address]- 4236 Oct, [facility] [place] [facility] [address] [id number] [place] [address] 1886 Oct, [facility] [place] [facility] [address] [id number] [place] [address]- 5406 Oct, [facility] [place] [facility] [address] [facility] [id number] [place] [address]- 4476 Oct, [facility] [place] [facility] [address] [id number] [place] [address]- 2341 Oct, [facility] [place] [facility] [address] [id number] [place] [address]- 2427 Oct, [facility] [place] [facility] [address] [facility] [id number] [place] [address]- 0363 Oct, [facility] [place] [facility] [address] [facility] [id number] [place] [address]- 3908 Oct, [facility] [place] [facility] [address] [id number] [place] [address]- 2544 Oct, [facility] [place] [facility] [address] [id number] [place] [address]- 2197 Oct, [facility] [place] [facility] [address] [id number] [place] [address]- 4031 Oct, [facility] [place] [facility] [address] [facility] [id number] [place] [address]- 9428 Sep, [facility] [place] [facility] [address] [id number] [place] [address]- 4443 20 Sep, 2013 [facility] [address] [id number] [place] [address]- 0108 15 Sep, 2013 [facility] [place] [facility] [address] [id number] [place] [address]- 1378 15 Sep, 2013 [facility] [place] [facility] [address] [id number] [place] [address]- 4619 14 Sep, 2013 [facility] [place] [facility] [address] [id number] [place] [address]- 8800 14 Sep, 2013 [facility] [place] [facility] [address] [id number] [place] [address]- 2447 14 Sep, 2013 [facility] [place] [facility] [address] [id number] [place] [address]- 3938 14 Sep, 2013 [facility] [address] [id number] [place] [address]- 2051 08 Sep, 2013 [facility] [place] [facility] [address] [id number] [place] [address]- 8634 08 Sep, 2013 [facility] [place] [facility] [address] [id number] [place] [address]- 8072 10 Aug, 2013 [facility] [place] [facility] [address] [id number] [place] [address]- 6114 Aug, [facility] [place] [facility] [address] [id number] [place] [address]- 8997 Jul, [facility] [place] [facility] [address] [id number] [place] [address]- 5087 Jul, [facility] [place] [facility] [address] [id number] [place] [address]- 5625 13 Jul, 2013 [facility] [place] [facility] [address] [id number] [place] [address]- 7005 13 Jul, 2013 [facility] [place] [facility] [address] [id number] [place] [address]- 3459 Jul, [facility] [place] [facility] [address] [id number] [place] [address]- 9849 Jul, [facility] [place] [facility] [address] [id number] [place] [address]- 8427 Jul, [facility] [place] [facility] [address] [id number] [place] [address]- 2559 Jul, [facility] [place] [facility] [address] [id number] [place] [address]- 7167 Jul, [facility] [place] [facility] [address] [id number] [place] [address]- 9940 Jul, [facility] [place] [facility] [address] [id number] [place] [address]- 5348 Jul, [facility] [place] [facility] [address] [id number] [place] [address]- 2498 Jul, [facility] [place] [facility] [address] [id number] [place] [address]- 3957 Jul, [facility] [place] [facility] [address] [id number] [place] [address]- 6217 Jul, [facility] [place] [facility] [address] [id number] [place] [address]- 3864 Jul, [facility] [place] [facility] [address] [id number] [place] [address]- 2242 Jul, [facility] [place] [facility] [address] [id number] [address]- 9007 Jul, [facility] [place] [facility] [address] [id number] [place] [address]- 9087 Jul, [facility] [place] [facility] [address] [id number] [place] [address]- 2354 Jul, [facility] [place] [facility] [address] [id number] [place] [address]- 8817 Jun, [facility] [place] [facility] [address] [id number] [address]- 6486 16 Jun, 2012 [facility] [place] [facility] [address] [id number] [place] [address]- 9430 16 Jun, 2012 [facility] [place] [facility] [address] [id number] [place] [address]- 9896 16 Jun, 2012 [facility] [place] [facility] [address] [id number] [place] [address]- 4860 16 Jun, 2012 [facility] [place] [facility] [address] [id number] [place] [address]- 1374 16 Jun, 2012 [facility] [place] [facility] [address] [id number] [place] [address]- 9177 10 Jun, 2012 [facility] [place] [facility] [address] [id number] [place] [address]- 8071 10 Jun, 2012 [facility] [place] [facility] [address] [id number] [place] [address]- 7475 09 Jun, 2012 [facility] [place] [facility] [address] [id number] [place] [address]- 9605 09 Jun, 2013 [facility] [place] [facility] [address] [id number] [address]- 8498 Jun, [facility] [place] [facility] [address] [id number] [place] [address]- 5785 26 Sep, 2012 [facility] [place] [facility] [address] [id number] [address]- 6944 25 Sep, 2012 [facility] [place] [facility] [address] [id number] [address]- 4734 19 Sep, 2012 [facility] [place] [facility] [address] [id number] [place] [address]- 6104 17 Sep, 2012 [facility] [place] [facility] [address] [id number] [place] [address]- 9728 11 Sep, 2012 [facility] [place] [facility] [address] [id number] [place] [address]- 9302 10 Sep, 2012 [facility] [place] [facility] [address] [id number] [place] [address]- 2540 May, [facility] [address] [id number] [place] [address]- 3103 May, [facility] [place] [facility] [address] [id number] [place] [address]- 1236 Apr, [facility] [address] [id number] [place] [address]- 4551 Apr, [facility] [place] [facility] [address] [id number] [place] [address]- 7159 Apr, [facility] [address] [id number] [place] [address]- 6847 Apr, [facility] [place] [facility] [address] [id number] [place] [address]- 3941 Apr, [facility] [address] [id number] [place] [address]- 1836 Mar, [facility] [address] [id number] [place] [address]- 9239 Mar, [facility] [place] [facility] [address] [id number] [place] [address]- 6480 Mar, [facility] [address] [id number] [place] [address]- 3891 Mar, [facility] [place] [facility] [address] [id number] [place] [address]- 4121 Mar, [facility] [place] [facility] [address] [id number] [place] [address]- 7742 Mar, [facility] [place] [facility] [address] [id number] [place] [address]- 6591 Mar, [facility] [place] [facility] [address] [id number] [place] [address]- 2546 Mar, [facility] [place] [facility] [address] [id number] [place] [address]- 8738 Feb, [facility] [address] [id number] [place] [address]- 1908 Feb, [facility] [place] [facility] [address] [id number] [place] [address]- 6108 January, [facility] [place] [facility] [address] [id number] [place] [address]- 6645 January, [facility] [place] [facility] [address] [id number] [place] [address]- 3342 Dec, [facility] [place] [facility] [address] [id number] [place] [address]- 7731 Dec, [facility] [place] [facility] [address] [id number] [place] [address]- 0609 Nov, [facility] [place] [facility] [address] [id number] [place] [address]- 2602 Nov, [facility] [place] [facility] [address] [id number] [place] [address]- 8337 Nov, [facility] [place] [facility] [address] [id number] [place] [address]- 5480 Nov, [facility] [place] [facility] [address] [id number] [place] [address]- 8775 Oct, [facility] [place] [facility] [address] [id number] [place] [address]- 9257 Oct, [facility] [place] [facility] [address] [id number] [address]- 9100 Oct, [facility] [place] [facility] [address] [id number] [place] [address]- 1996 Oct, [facility] [place] [facility] [address] [id number] [place] [address]- 2939 16 Oct, 2012 [facility] [place] [facility] [address] [id number] [place] [address]- 4270 14 Oct, 2012 [facility] [place] [facility] [address] [id number] [place] [address]- 2548 08 Oct, 2012 [facility] [address] [id number] [place] [address]- 6761 07 Oct, 2012 [facility] [address] [id number] [place] [address]- 2546 03 Oct, 2012 [facility] [address] [id number] [place] [address]- 9836 30 Sep, 2012 [facility] [address] [id number] [place] [address]- 3493 Sep, [facility] [address] [id number] [place] [address]- 1936 Sep, [facility] [address] [id number] [place] [address]- 8174 Sep, [facility] [address] [id number] [place] [address]- 3198 Sep, [facility] [address] [id number] [place] [address]- 9080 Sep, [facility] [address] [id number] [place] [address]- 0118 Sep, [facility] [address] [id number] [place] [address]- 9980 Sep, [facility] [address] [id number] [place] [address]- 6888 Aug, [facility] [address] [id number] [place] [address]- 3059 Aug, [facility] [address] [id number] [place] [address]- 1112 Aug, [facility] [address] [id number] [place] [address]- 2546 Aug, [facility] [address] [id number] [place] [address]- 7545 Aug, [facility] [place] [facility] [address] [id number] [place] [address]- 1324 Aug, [facility] [place] [facility] [address] [id number] [place] [address]- 5077 Aug, [facility] [place] [facility] [address] [id number] [place] [address]- 5566 Aug, [facility] [place] [facility] [address] [id number] [place] [address]- 4841 Jul, [facility] [place] [facility] [address] [id number] [place] [address]- 0895 Jul, [facility] [place] [facility] [address] [id number] [place] [address]- 6353 Jul, [facility] [place] [facility] [address] [id number] [place] [address]- 8318 Jul, [facility] [place] [facility] [address] [id number] [address]- 6208 Jul, [facility] [place] [facility] [address] [id number] [place] [address]- 9571 Jul, [facility] [place] [facility] [address] [id number] [address]- 9111 Jun, [facility] [place] [facility] [address] [id number] [address]- 1465 Jun, [facility] [place] [facility] [address] [id number] [place] [address]- 8923 Jun, [facility] [place] [facility] [address] [id number] [place] [address]- 4445 Jun, [facility] [place] [facility] [address] [id number] [place] [address]- 0284 Jun, [facility] [place] [facility] [address] [id number] [address]- 2192 Jun, [facility] [place] [facility] [address] [id number] [place] [address]- 2364 19 Jun, 2012 [facility] [place] [facility] [address] [id number] [place] [address]- 1066 10 Jun, 2012 [facility] [place] [facility] [address] [id number] [place] [address]- 8426 10 Jun, 2012 [facility] [place] [facility] [address] [id number] [place] [address]- 7986 26 May, 2012 [facility] [place] [facility] [address] [id number] [place] [address]- 4947 24 May, 2012 [facility] [place] [facility] [address] [id number] [place] [address]- 1173 18 May, 2012 [facility] [place] [facility] [address] [id number] [place] [address]- 3309 30 Apr, 2012 [facility] [place] [facility] [address] [id number] [place] [address]- 7776 29 Apr, 2012 [facility] [place] [facility] [address] [id number] [place] [address]- 5031 Apr, [facility] [place] [facility] [address] [id number] [place] [address]- 8531 Apr, [facility] [place] [facility] [address] [id number] [place] [address]- 1834 Apr, [facility] [place] [facility] [address] [id number] [place] [address]- 5653 Apr, [facility] [place] [facility] [address] [id number] [place] [address]- 2821 Mar, [facility] [place] [facility] [address] [id number] [place] [address]- 6354 Mar, [facility] [place] [facility] [address] [id number] [place] [address]- 0126 Mar, [facility] [place] [facility] [address] [id number] [place] [address]- 0462 Mar, [facility] [place] [facility] [address] [id number] [place] [address]- 8526 Feb, [facility] [place] [facility] [address] [id number] [place] [address]- 6432 Feb, [facility] [place] [facility] [address] [id number] [place] [address]- 2383 Feb, [facility] [place] [facility] [address] [id number] [place] [address]- 2664 Feb, [facility] [place] [facility] [address] [id number] [place] [address]- 0076 Feb, [facility] [place] [facility] [address] [id number] [place] [address]- 7006 January, [facility] [place] [facility] [address] [id number] [place] [address]- 2123 January, [facility] [place] [facility] [address] [id number] [place] [address]- 1098 January, [facility] [place] [facility] [address] [id number] [place] [address]- 3465 January, [facility] [place] [facility] [address] [id number] [place] [address]- 1773 January, [facility] [place] [facility] [address] [id number] [place] [address]- 0586 January, [facility] [place] [facility] [address] [id number] [place] [address]- 8308 Dec, [facility] [place] [facility] [address] [id number] [place] [address]- 3394 Dec, [facility] [place] [facility] [address] [id number] [place] [address]- 1157 Dec, [facility] [place] [facility] [address] [id number] [place] [address]- 8981 Dec, [facility] [place] [facility] [address] [id number] [place] [address]- 9879 06 Dec, 2011 [facility] [address] [id number] [place] [address]- 5460 27 Nov, 2011 [facility] [place] [facility] [address] [id number] [place] [address]- 7386 14 Nov, 2011 [facility] [place] [facility] [address] [facility] [id number] [place] [address]- 6604 Nov, [facility] [place] [facility] [address] [id number] [place] [address]- 8476 07 Nov, 2011 [facility] [place] [facility] [address] [id number] [place] [address]- 5525 29 Oct, 2011 [facility] [place] [facility] [address] [facility] [id number] [place] [address]- 0448 28 Oct, 2011 [facility] [address] [facility] [id number] [place] [address]- 5428 24 Oct, 2011 [facility] [place] [facility] [address] [id number] [place] [address]- 2521 13 Oct, 2011 [facility] [place] [facility] [address] [facility] [id number] [place] [address]- 5098 08 Oct, 2011 [facility] [place] [facility] [address] [facility] [id number] [place] [address]- 9700 Sep, [facility] [place] [facility] [address] [facility] [id number] [place] [address] Sep, [facility] [place] [facility] [address] [id number] [place] [address] Sep, [facility] [place] [facility] [address] [id number] [place] [address] Sep, [facility] [place] [facility] [address] [facility] [id number] [place] [address] Sep, [facility] [place] [facility] [address] [facility] [id number] [place] [address] Sep, [facility] [place] [facility] [address] [id number] [place] [address] Aug, [facility] [place] [facility] [address] [id number] [place] [address] Aug, [facility] [place] [facility] [address] [id number] [place] [address] Aug, [facility] [place] [facility] [address] [id number] [place] [address] Jul, [facility] [place] [facility] [address] [id number] [place] [address] Jul, [facility] [place] [facility] [address] [id number] [place] [address] Jul, [facility] [place] [facility] [address] [id number] [place] [address]678 Jul, [facility] [place] [facility] [address] [id number] [place] [address] Jun, [facility] [place] [facility] [address] [id number] [place] [address] Jun, [facility] [place] [facility] [address] [id number] [place] [address] Jun, [facility] [place] [facility] [address] [id number] [place] [address] 230[address] Jun, [facility] [place] [facility] [address] [id number] [place] [address] Jun, [facility] [place] [facility] [address] [id number] [place] [address] Jun, [facility] [place] [facility] [address] [id number] [place] [address] 95[address] Mar, [facility] [place] [facility] [address] [id number] [place] [address] Dec, [facility] [place] [facility] [address] [id number] [place] [address] 11 Dec, 2010 [facility] [address] [id number] [place] [address] 18 Nov, 2010 [facility] [place] [facility] [address] [id number] [place] [address]456 16 Nov, 2010 [facility] [place] [facility] [address] [id number] [place] [address] 10 Sep, 2010 [facility] [place] [facility] [address] [id number] [place] [address] 31 Aug, 2010 [facility] [place] [facility] [address] [id number] [place] [address] 29 Aug, 2010 [facility] [place] [facility] [address] [id number] [place] [address] 3436 29 Aug, 2010 [facility] [place] [facility] [address] [id number] [place] [address] 7248 29 Aug, 2010 [facility] [place] [facility] [address] [id number] [place] [address]- 7973 27 Aug, 2010 [facility] [place] [facility] [address] [id number] [place] [address] 2070 14 Aug, 2010 [facility] [place] [facility] [address] [id number] [place] [address] 31[address] 08 Aug, 2010 [facility] [place] [facility] [address] [id number] [place] [address] 9816 08 Aug, 2010 [facility] [place] [facility] [address] [id number] [address] 07 Aug, 2010 [facility] [place] [facility] [address] [id number] [place] [address]- 28[address] 06 Aug, 2010 [facility] [place] [facility] [address] [id number] [place] [address] 2566 06 Aug, 2010 [facility] [place] [facility] [address] [id number] [place] [address] Aug, [facility] [place] [facility] [address] [id number] [place] [address]- 9694 30 Jul, 2010 [facility] [place] [facility] [address] [id number] [place] [address] 6046 30 Jul, 2010 [facility] [place] [facility] [address] [id number] [place] [address]- 8426 30 Jul, 2010 [facility] [place] [facility] [address] [id number] [place] [address]246 17 Jul, 2010 [facility] [place] [facility] [address] [id number] [place] [address] 2545 Jul, [facility] [place] [facility] [address] [id number] [place] [address]- [address]48 Jul, [facility] [place] [facility] [address] [id number] [place] [address]- 6337 24 Jun, 2010 [facility] [place] [facility] [address] [id number] [place] [address]- 2545 Jun, [facility] [place] [facility] [address] [id number] [place] [address]- 2417 Jun, [facility] [place] [facility] [address] [id number] [place] [address]- 1627 Jun, [facility] [place] [facility] [address] [id number] [place] [address] 16 Apr, 2010 [facility] [place] [facility] [address] [id number] [place] [address] 8[address] Mar, [facility] [place] [facility] [address] [id number] [place] [address]40 Feb, [facility] [place] [facility] [address] [id number] [place] [address]353 January, [facility] [place] [facility] [address] [id number] [place] [address]326 15 Dec, 2009 [facility] [place] [facility] [address] [id number] [address] Nov, [facility] [place] [facility] [address] [id number] [place] [address]- 5584 31 Aug, 2009 [facility] [place] [facility] [address] [id number] [place] [address]- 6456 Aug, [facility] [place] [facility] [address] [id number] [place] [address]- 5643 Aug, [facility] [place] [facility] [address] [id number] [place] [address]- 1170 Jul, [facility] [place] [facility] [address] [id number] [place] [address]- 1606 Jul, [facility] [place] [facility] [address] [id number] [place] [address]- 7543 Jul, [facility] [place] [facility] [address] [facility] [id number] [place] [address]- 9368 30 Jun, 2009 [facility] [place] [facility] [address] [id number] [place] [address]- 8010 Jun, [facility] [place] [facility] [address] [id number] [place] [address]- 9518 Jun, [facility] [place] [facility] [address] [id number] [place] [address]- 1388 Jun, [facility] [place] [facility] [address] [facility] [id number] [place] [address]- 6497 Jun, [facility] [place] [facility] [address] [id number] [address] Jun, [facility] [place] [facility] [address] [id number] [place] [address]- 6778 Apr, [facility] [place] [facility] [address] [id number] [place] [address]- 7001 Apr, [facility] [place] [facility] [address] [id number] [address] Feb, [facility] [place] [facility] [address] [id number] [place] [address]66 January, [facility] [address] [facility] [id number] [place] [id number] Dec, IMMUNIZATIONS No Known Immunizations SOCIAL HISTORY Never Assessed REASON FOR VISIT Lab results PLAN OF CARE VITAL SIGNS MEDICATIONS Unknown [...] obesity Medical History skin cancer-basal cell R anglican (removed) Medical History Arthritis Medical History degenerative [...] 2009 Surgical History colonoscopy 2009 ([facility]), 2013 ([facility]) Surgical History heart 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 04/2014 Surgical History carotid US 05/2014 Surgical History resection of skin cancer from Right anglican Surgical History Biopsy of Lung Bilateral/Left lung lymph node 09/2016 Surgical History Bone Marrow Biopsy Surgical History port in the right chest wall 12/2016 Hospitalization History [facility] low potassium, low magnesium, chest painina 01/2015 Hospitalization History inability to urinate 09/16/15 Hospitalization History [facility] early Hospitalization History hyperkalemia 10/2017 Hospitalization History fluid in lung
--- NOTE | 2018-08-08 13:54 | Physical Therapy Ortho Eval ---
PT Orthopedic Evaluation Type of Surgery Knee Scope WBAT Prior Level of Function Current Living Status: Significant Other Locomotion (Upon Admit): Independent Established Durable Medical Eq: Quad Cane Subjective Subjective Patient in bed pre tx, agrees to PT, has 6/10 pain right knee Entry Into Home: Stairs With Railing Steps Into Home: 2 Motor Control Motor Control: Motor Control WNL ROM right knee flexion 80 degrees, extension +5 degrees Strength NT Transfer Transfers (B, C, W/C) (FIM): 5 Gait Gait Assistive Device: FWW Right Lower Extremity: Right Weight Bearing Status RLE: Weight Bearing/Tolerated Gait (FIM): 2 Distance: 60' Gait Level of Assist: 5 Summary/Comments Antalgic ambulation, good step-through but decreased stance time on right leg. Patient also went up and down 1 step using a rolling walker with SBA and cues for foot placement. Treatment Rendered Treatment: Therapeutic Exercises, Gait Train, Step Train Exercise Instruction: Quad Sets, Heel Slides, Ankle Pumps LAQ Assessment/Goals Goal Time Frame: 1 Visit Plan Treatment Plan: Discharge PT/Family Agrees to Plan: Yes Time Time In: 1325 Time Out: 1345 Total Billed Treatment Time: 20 Billed Treatment Time 1 visit EVM 20' Yes PT/OT Therapy GCodes Therapy Functional Limitation: Physical Therapy Test(s)/Tool used to determine: Level of Assistance Scale Functional Limitation-Current Charge Code: MOBCUR Modifier: CI Functional Limitation-Goal Charge Code: MOBGOAL Modifier: CI Functional Limitation-D/C Charge Codes: MOBDC Modifier: CI YING PICKENS PT Aug 08, 2018 13:54
--- OUTSIDE RECORDS SUMMARY | 2018-08-08 13:54 | XMS REPORT ---
Author Author ROSELINE LUIS Organization [facility] Address [address] [place] [address] Care Team Providers Care Manager Mining Name Role Phone ROSELINE LUIS Unavailable PROBLEMS Type Condition ICD9-CM Code FCM61-LT Code Onset Dates Condition Status SNOMED Code Problem Chronic lymphocytic leukemia C91.10 Active 20813636 Problem Lymphocytosis D72.820 Active 17483680 Problem Eye exam abnormal R93.8 Active 613211424 Problem Eustachian tube dysfunction, unspecified laterality H69.80 Active 28511151 Problem Essential hypertension I10 Active 62738889 Problem Dysuria R30.0 Active 99616601 Problem Diabetic polyneuropathy associated with type 2 diabetes mellitus E11.42 Active 75285395 Problem Cough R05 Active 64365960 Problem Polyneuropathy associated with underlying disease G63 Active 934339768 Problem Retinal edema H35.81 Active 0081617 Problem Bilateral primary osteoarthritis of knee M17.0 Active 319084206 Problem Primary osteoarthritis of right knee M17.11 Active 969691399716087 Problem Pure hypercholesterolemia E78.00 Active 733025873 Problem DM neuro manif type II E11.49 Active 17581124 Problem Benign prostatic hyperplasia with lower urinary tract symptoms, unspecified morphology N40.1 Active 560106073 Problem Hypokalemia E87.6 Active 51657687 Problem 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 Active 193468263 Problem Anemia of chronic illness D63.8 Active 112052482 Problem Bipolar disorder, in partial remission, most recent episode depressed F31.75 Active 85054561 Problem Falling R29.6 Active 129356039 Problem Leukocytosis D72.829 Active 874943388 Problem Reactive airway disease J45.909 Active 474131638411 Problem Diabetes E11.9 Active 02240458 Problem Chronic pain G89.29 Active 47180205 Problem Anxiety F41.9 Active 92570446 Problem Morbid obesity E66.01 Active 741119228 Problem Bipolar I disorder, most recent episode (or current) mixed, moderate F31.62 Active 56615945 Problem Insomnia, unspecified type G47.00 Active 240246763 ALLERGIES No Information ENCOUNTERS Encounter Location Date Diagnosis [facility] [id number] [place] [address] 44228- 0198 Jun, [facility] [id number] [place] [address] 17401- 3385 May, Chronic pain G89.29 [facility] [id number] [place] [address] 42124- 5743 Apr, [facility] [address] 86396- 9431 Apr, Chronic pain G89.29 [facility] [id number] [place] [address] 96251- 7230 Apr, Primary osteoarthritis of right knee M17.11 [facility] [address] 90424- 3029 Mar, [facility] [id number] [place] [address] 70724- 8869 Mar, BMI 50.0-59.9, adult Z68.43 and Bipolar disorder, in partial remission, most recent episode depressed F31.75 [facility] [id number] [place] [address] 25671- 8316 Mar, Diabetes E11.9 ; Pure hypercholesterolemia E78.00 ; Essential hypertension I10 ; Nausea with vomiting, unspecified R11.2 and Headache, unspecified headache type R51 [facility] [id number] [place] [address] 18164- 3522 Mar, Bipolar I disorder, most recent episode (or current) mixed, moderate F31.62 [facility] [id number] [place] [address] 69544- 5718 Mar, Bipolar I disorder, most recent episode (or current) mixed, moderate F31.62 [facility] [id number] [place] [address] 47539- 2130 Mar, Chronic pain G89.29 [facility] [address] [place] [address] 43800- 2333 Mar, Bipolar I disorder, most recent episode (or current) mixed, moderate F31.62 [facility] [address] [place] [address] 26474- 5971 Feb, Bipolar I disorder, most recent episode (or current) mixed, moderate F31.62 [facility] [id number] [place] [address] 80959- 5172 Feb, Chronic pain G89.29 [facility] [id number] [place] [address] 32793- 7593 Feb, Decubitus ulcer of right foot, stage 3 L89.893 and BMI 50.0- 59.9, adult Z68.43 [facility] [id number] [place] [address] 95251- 0183 Feb, Bipolar I disorder, most recent episode (or current) mixed, moderate F31.62 [facility] [id number] [place] [address] 43162- 2717 Feb, [facility] [id number] [place] [address] 41095- 1990 January, [facility] [address] [place] [address] 35119- 0973 January, Chronic pain G89.29 [facility] [address] [place] [address] 02804- 5266 January, Bipolar I disorder, most recent episode (or current) mixed, moderate F31.62 [facility] [address] [place] [address] 62814- 5166 January, Bipolar I disorder, most recent episode (or current) mixed, moderate F31.62 [facility] [id number] [place] [address] 39986- 4923 Dec, Bipolar I disorder, most recent episode (or current) mixed, moderate F31.62 and BMI 50.0-59.9, adult Z68.43 [facility] [address] 32789- 5226 Dec, Bipolar I disorder, most recent episode (or current) mixed, moderate F31.62 [facility] [address] 62801- 9577 Dec, Chronic pain G89.29 [facility] [address] 14435- 4885 Dec, DM neuro manif type II E11.49 ; Right flank pain R10.9 ; [facility] 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 Z79.891 ; Encounter for medication monitoring Z51.81 and BMI 50.0-59.9, adult Z68.43 [facility] [address] 62530- 9188 Dec, Bipolar I disorder, most recent episode (or current) mixed, moderate F31.62 [facility] [id number] [place] [address] 15081- 4467 Nov, Bipolar I disorder, most recent episode (or current) mixed, moderate F31.62 [facility] [id number] [place] [address] 25255- 9079 Nov, Chronic pain G89.29 [facility] [address] 43304- 7407 Nov, Bipolar I disorder, most recent episode (or current) mixed, moderate F31.62 [facility] [address] 31780- 6477 Nov, Hypokalemia E87.6 [facility] [id number] [place] [address] 51080- 1751 Nov, Bipolar I disorder, most recent episode (or current) mixed, moderate F31.62 [facility] [address] [place] [address]- 5417 Oct, Chronic pain G89.29 [facility] [address] 23940- 8941 Oct, BMI 50.0-59.9, adult Z68.43 and Bipolar I disorder, most recent episode (or current) mixed, moderate F31.62 [facility] [address] 47942- 0781 Oct, Bipolar I disorder, most recent episode (or current) mixed, moderate F31.62 [facility] [address] 94018- 9002 Oct, [facility] [address] 19816- 3014 Oct, Hypokalemia E87.6 [facility] [address] 21835- 5591 Oct, DM neuro manif type II E11.49 [facility] [id number] [place] [address] 50087- 8107 Oct, Bipolar I disorder, most recent episode (or current) mixed, moderate F31.62 [facility] [address] [place] [address] 88221- 4301 Oct, Bipolar I disorder, most recent episode (or current) mixed, moderate F31.62 [facility] [id number] [place] [address] 26716- 7157 Oct, Hyperkalemia E87.5 ; Falling R29.6 ; BMI 50.0-59.9, adult Z68.43 and Acute left ankle pain M25.572 [facility] [address] [place] [address] 94667- 8360 Oct, DM neuro manif type II E11.49 [facility] [address] 15831- 8768 Oct, [facility] [id number] [place] [address] 69438- 1334 Sep, Chronic pain G89.29 [facility] [id number] [place] [address] 61572- 4720 Sep, [facility] [id number] [place] [address] 12078- 0495 Sep, Bilateral primary osteoarthritis of knee M17.0 [facility] [address] 80276- 5502 Sep, Generalized edema R60.1 [facility] [address] 59143- 2116 Sep, Bipolar I disorder, most recent episode (or current) mixed, moderate F31.62 [facility] [id number] [place] [address] 30128- 8043 Sep, Hypoxia R09.02 ; Other hypervolemia E87.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 ; Anemia of chronic illness D63.8 and BMI 50.0- 59.9, adult Z68.43 [facility] [address] [place] [address] 05037- 6617 Sep, [facility] [id number] [place] [address] 29318- 4663 Sep, Bipolar I disorder, most recent episode (or current) mixed, moderate F31.62 [facility] [address] [place] [address] 12857- 6858 Aug, Chronic pain G89.29 [facility] [address] [place] [address] 00096- 0588 Aug, Generalized edema R60.1 [facility] [id number] [place] [address] 67578- 1900 Aug, [facility] [address] [place] [address] 51196- 4037 Aug, [facility] [id number] [place] [address] 84806- 6790 Aug, Bipolar I disorder, most recent episode (or current) mixed, moderate F31.62 [facility] [address] [place] [address] 79536- 8712 Aug, Bipolar I disorder, most recent episode (or current) mixed, moderate F31.62 [facility] [address] [place] [address] 41708- 2742 Aug, Chronic pain G89.29 [facility] [address] [place] [address] 85315- 2263 Jul, Bipolar I disorder, most recent episode (or current) mixed, moderate F31.62 [facility] [id number] [place] [address] 70525- 3827 Jul, Bipolar I disorder, most recent episode (or current) mixed, moderate F31.62 and BMI 60.0-69.9, adult Z68.44 [facility] [address] [place] [address] 42759- 5921 Jul, Bipolar I disorder, most recent episode (or current) mixed, moderate F31.62 [facility] [id number] [place] [address] 89281- 9963 Jul, Chronic pain G89.29 [facility] [address] [place] [address] 33329- 4162 Jul, Bipolar I disorder, most recent episode (or current) mixed, moderate F31.62 [facility] [id number] [place] [address] 03344- 8333 Jun, Polyneuropathy associated with underlying disease G63 and Diabetes E11.9 [facility] [address] [place] [address] 10368- 1430 Jun, Bipolar I disorder, most recent episode (or current) mixed, moderate F31.62 [facility] [address] [place] [address] 07670- 5459 09 Jun, 2017 Chronic pain G89.29 [facility] [address] [place] [address] 63021- 1632 27 May, 2017 Bipolar I disorder, most recent episode (or current) mixed, moderate F31.62 [facility] [id number] [place] [address] 07845- 0588 21 May, 2017 Bipolar I disorder, most recent episode (or current) mixed, moderate F31.62 [facility] [id number] [place] [address] 36668- 7853 20 May, 2017 Diabetic polyneuropathy associated with type 2 diabetes mellitus E11.42 [facility] [id number] [place] [address] 05941- 3234 18 May, 2017 Bipolar I disorder, most recent episode (or current) mixed, moderate F31.62 [facility] [address] [place] [address] 53268- 4796 13 May, 2017 Bipolar I disorder, most recent episode (or current) mixed, moderate F31.62 [facility] [address] [place] [address] 82473- 5180 12 May, 2017 Chronic pain G89.29 [facility] [id number] [place] [address] 60072- 9518 Apr, Bipolar I disorder, most recent episode (or current) mixed, moderate F31.62 [facility] [address] [place] [address]- 2264 Apr, [facility] [id number] [place] [address] 44313- 3019 Apr, Chronic pain G89.29 and DM neuro manif type II E11.49 [facility] [id number] [place] [address] 39240- 0668 Apr, [facility] [address] [place] [address]- 8547 Apr, Bipolar I disorder, most recent episode (or current) mixed, moderate F31.62 [facility] [address] [place] [address]- 6376 Apr, Chronic pain G89.29 [facility] [address] [place] [address] 83552- 4776 Apr, Iliotibial band syndrome, left M76.32 [facility] [address] [place] [address] 31737- 4311 Apr, Bipolar I disorder, most recent episode (or current) mixed, moderate F31.62 [facility] [address] [place] [address]- 6844 Mar, Bipolar I disorder, most recent episode (or current) mixed, moderate F31.62 [facility] [address] [place] [address]- 6748 Mar, Bipolar I disorder, most recent episode (or current) mixed, moderate F31.62 [facility] [address] [place] [address]- 3530 Mar, [facility] [address] [place] [address]- 1881 Mar, Bipolar I disorder, most recent episode (or current) mixed, moderate F31.62 [facility] [address] [address]- 6334 Mar, Chronic pain G89.29 [facility] [address] [place] [address]- 2048 Mar, Bipolar I disorder, most recent episode (or current) mixed, moderate F31.62 [facility] [address] [place] [address]- 0603 Mar, Bipolar I disorder, most recent episode (or current) mixed, moderate F31.62 [facility] [id number] [place] [address] 35564- 3133 Mar, Acute pain of left knee M25.562 ; Left hip pain M25.552 ; Generalized edema R60.1 and Tongue swelling R22.0 [facility] [address] [place] [address] 45253- 1167 Mar, [facility] [address] [place] [address] 73155- 3628 Feb, Chronic pain G89.29 [facility] [id number] [place] [address] 38595- 3956 Feb, Diabetes E11.9 [facility] [address] [place] [address] 45299- 6431 January, Chronic pain G89.29 [facility] [id number] [place] [address] 21621- 5929 January, [facility] [address] [place] [address] 65860- 8615 January, Bipolar I disorder, most recent episode (or current) mixed, moderate F31.62 [facility] [address] [place] [address] 79365- 2025 Dec, Bipolar I disorder, most recent episode (or current) mixed, moderate F31.62 [facility] [address] [place] [address] 68245- 8857 Dec, Chronic pain G89.29 [facility] [address] [place] [address] 52167- 2959 Dec, Bipolar I disorder, most recent episode (or current) mixed, moderate F31.62 [facility] [address] [place] [address] 85979- 3845 Dec, Diabetes E11.9 ; Essential hypertension I10 ; Chronic pain G89.29 and Morbid obesity E66.01 [facility] [address] [place] [address]- 8176 Dec, [facility] [address], [place] [address]- 6666 Dec, Bipolar I disorder, most recent episode (or current) mixed, moderate F31.62 [facility] [address], [place] [address]- 9936 Dec, Bipolar I disorder, most recent episode (or current) mixed, moderate F31.62 [facility] [address], [place] [address]- 7686 Nov, Chronic pain G89.29 [facility] [address], [place] [address]- 2756 Nov, Bipolar I disorder, most recent episode (or current) mixed, moderate F31.62 [facility] [address], [place] [address]- 8876 Nov, [facility] [address], [place] [address]- 8566 Nov, Bipolar I disorder, most recent episode (or current) mixed, moderate F31.62 [facility] [address], [place] [address]- 1494 Nov, Bipolar I disorder, most recent episode (or current) mixed, moderate F31.62 [facility] [address], [place] [address]- 4106 Nov, [facility] [address], [place] [address] 2546 Nov, [facility] [address], [place] [address]- 3216 Nov, [facility] [address], [place] [address]- 5256 Oct, Chronic pain G89.29 [facility] [address], [place] [address]- 6439 Oct, Bipolar I disorder, most recent episode (or current) mixed, moderate F31.62 [facility] [id number] [place] [address] 04860- 0306 Oct, [facility] [id number] [place] [address] 83512- 1666 Oct, Chronic pain G89.29 ; Diabetes E11.9 ; Anxiety F41.9 and 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 [facility] [id number] [place] [address] 81315- 8458 Oct, [facility] [id number] [place] [address] 81515- 0855 Oct, Diabetes E11.9 [facility] [id number] [place] [address] 47511- 7829 Oct, Bipolar I disorder, most recent episode (or current) mixed, moderate F31.62 [facility] [id number] [place] [address] 82050- 9637 Sep, Chronic pain G89.29 [facility] [id number] [place] [address] 24455- 4302 Sep, Chronic pain G89.29 [facility] [id number] [place] [address] 06563- 0556 Aug, Chronic pain G89.29 [facility] [id number] [place] [address] 18267- 8093 Jul, [facility] [id number] [place] [address] 51839- 2974 Jul, Diabetes E11.9 [facility] [id number] [place] [address] 29124- 7197 Jul, Chronic pain G89.29 [facility] [id number] [place] [address] 95442- 5328 Jul, Bipolar I disorder, most recent episode (or current) mixed, moderate F31.62 [facility] [id number] [place] [address] 44951- 6697 Jun, Bipolar I disorder, most recent episode (or current) mixed, moderate F31.62 [facility] [id number] [place] [address] 66922- 0750 Jun, [facility] [address] 91014- 7592 Jun, Bipolar I disorder, most recent episode (or current) mixed, moderate F31.62 [facility] [address] [place] [address] 43266- 6252 30 May, 2016 Insomnia, unspecified type G47.00 [facility] [id number] [place] [address] 43538- 0669 May, Bipolar I disorder, most recent episode (or current) mixed, moderate F31.62 [facility] [address] [place] [address] 19190- 6323 14 May, 2016 [facility] [address] 55938- 0962 08 May, 2016 Bipolar I disorder, most recent episode (or current) mixed, moderate F31.62 [facility] [id number] [place] [address] 57662- 2028 May, Diabetes E11.9 and Essential hypertension I10 [facility] [id number] [place] [address] 12988- 6098 Apr, Chronic pain G89.29 [facility] [address] 37492- 8103 Apr, Bipolar I disorder, most recent episode (or current) mixed, moderate F31.62 [facility] [id number] [place] [address] 85129- 3772 Apr, [facility] [address] 37105- 6837 Apr, [facility] [id number] [place] [address] 73688- 9988 Mar, Chronic pain G89.29 ; Headache, unspecified headache type R51 ; Neuropathy G62.9 ; Pain of right hip joint M25.551 and Essential hypertension I10 [facility] [address] [place] [address] 33367- 0641 Mar, Chronic pain G89.29 [facility] [address] [place] [address] 24177- 9880 Mar, Bipolar I disorder, most recent episode (or current) mixed, moderate F31.62 [facility] [id number] [place] [address] 79344- 9342 Feb, Bipolar I disorder, most recent episode (or current) mixed, moderate F31.62 and Insomnia, unspecified type G47.00 [facility] [address] [place] [address] 29158- 8603 Feb, Chronic pain G89.29 [facility] [id number] [place] [address] 19475- 0188 Feb, Bipolar I disorder, most recent episode (or current) mixed, moderate F31.62 [facility] [id number] [place] [address] 26697- 9225 January, Bipolar I disorder, most recent episode (or current) mixed, moderate F31.62 [facility] [id number] [place] [address] 21234- 7060 January, Chronic pain G89.29 [place] [address] [place] [id number] [place] [address] 93068- 4635 January, Chronic pain G89.29 and Essential hypertension I10 [place] [address] [place] [id number] [place] [address] 16367- 9447 January, Bipolar I disorder, most recent episode (or current) mixed, moderate F31.62 [place] [id number] [place] [address] 06100- 6356 Dec, [facility] [id number] [place] [address] 34816- 9435 Dec, [facility] [id number] [place] [address] 53688- 0074 Dec, [facility] [address] 72[address]- [address] Dec, [facility] [id number] [place] [address] 14500- 5868 Nov, Reactive airway disease J45.909 [facility] [address] [id number] [place] [address] 30525- 1333 Nov, [facility] [address] 68835- 0281 Nov, [facility] [id number] [place] [address] 33517- 5854 Nov, [facility] [id number] [place] [address] 90124- 1068 Nov, [facility] [address] [id number] [place] [address] 46568- 7958 Nov, Onychomycosis B35.1 ; [place] M20.40 ; [place] or callus L84 and DM neuro manif type II E11.49 [facility] [id number] [place] [address] 21717- 0993 Nov, Chronic pain G89.29 ; Leukocytosis D72.829 and Diabetes E11.9 [facility] [id number] [place] [address] 00963- 7179 Nov, [facility] [id number] [place] [address] 86848- 2827 Oct, Bronchitis J40 [facility] [id number] [place] [address] 01065- 4979 Oct, [facility] [id number] [place] [address] 30333- 9713 Oct, [place] [id number] [place] [address] 41531- 5255 Oct, Mastoiditis, unspecified laterality H70.90 and Type 2 diabetes mellitus with complication E11.8 [place] [address] 32612- 1728 Sep, [place] [id number] [place] [address] 04569- 1579 Sep, Dysuria R30.0 ; Cough R05 ; Benign prostatic hyperplasia with lower urinary tract symptoms, unspecified morphology N40.1 ; Hypokalemia E87.6 and Eustachian tube dysfunction, unspecified laterality H69.80 [place] [id number] [place] [address] 64145- 4445 Sep, Moderate mixed bipolar I disorder F31.62 [place] [id number] [place] [address] 28348- 2820 Sep, Hypokalemia E87.6 [place] [id number] [place] [address] 27231- 4522 Sep, [place] [id number] [place] [address] 43279- 5198 Sep, Upper respiratory tract infection, unspecified type J06.9 [place] [id number] [place] [address] 09886- 0090 Aug, [place] [id number] [place] [address] 06240- 0486 Aug, Dysuria R30.0 [facility] [id number] [place] [address] 00328- 1322 Aug, [place] [id number] [place] [address] 12305- 7760 Jul, [facility] [address], [place] [address] 1267 Jul, [facility] [address], [place] [address]- 6025 Jul, [facility] [address], [place] [address]- 0008 Jul, [facility] [id number] [place] [address] 49351- 9034 Jun, [facility] [address], [place] [address]- 5783 Jun, [facility] [address], [place] [address]- 9475 Jun, [facility] [id number] [place] [address] 46876- 5191 May, [facility] [id number] [place] [address] 05417- 4102 May, Bipolar I disorder, most recent episode (or current) mixed, moderate 296.62 [facility] [address], [place] [address]- 0806 16 May, 2015 [facility] [address], [place] [address]- 3751 May, Bipolar I disorder, most recent episode (or current) mixed, moderate 296.62 and Major depressive disorder, recurrent episode, severe, specified as with psychotic behavior 296.34 [facility] [address], [place] [address]- 5015 May, Bipolar I disorder, most recent episode (or current) mixed, moderate 296.62 [facility] [address] 2605 May, [facility] [address], [place] [address]- 1440 Apr, [facility] [id number] [address]- 9411 Apr, [facility] [id number] [place] [address] 10802- 9259 Apr, Unspecified disorder of kidney and ureter 593.9 and Diabetes mellitus type 2, uncontrolled 250.02 [facility] [address], [place] [address]- 4005 Apr, [facility] [id number] [place] [address] 82532- 3791 Apr, [facility] [id number] [place] [address] 50514- 7414 Apr, [facility] [id number] [place] [address] 14554- 8904 Apr, [facility] [id number] [place] [address] 01273- 5456 Apr, Diabetes mellitus type II, uncontrolled 250.02 [facility] [id number] [place] [address] 87670- 4592 Apr, [facility] [id number] [place] [address] 58914- 9426 Mar, [facility] [address], [place] [address]- 4791 Mar, [facility] [id number] [place] [address] 82359- 5337 Mar, [facility] [address], [place] [address]- 0063 Mar, Major depressive disorder, recurrent episode, severe, specified as with psychotic behavior 296.34 and Bipolar I disorder, most recent episode (or current) mixed, moderate 296.62 [facility] [address], [place] [address]- 6255 Mar, Diabetes 250.00 ; Anuria 788.5 ; Nausea and vomiting 787.01 and Diarrhea 787.91 [facility] [address], [place] [address]- 2183 Mar, Diabetes 250.00 [facility] [id number] [place] [address] 98023- 8381 Mar, [facility] [address] [place] [address] 29136- 9886 Mar, Diabetes 250.00 [facility] [id number] [place] [address] 44815- 9186 Mar, [facility] [id number] [place] [address] 73504- 0839 Mar, [facility] [id number] [place] [address] 33296- 9619 Mar, [facility] [id number] [place] [address] 23478- 1420 Mar, [facility] [address] [place] [address] 74309- 8360 Mar, Bipolar I disorder, most recent episode (or current) mixed, moderate 296.62 and Major depressive disorder, recurrent episode, severe, specified as with psychotic behavior 296.34 [place] [address] [place] [address] 98783- 5686 Mar, Magnesium deficiency 275.2 ; Hypokalemia 276.8 ; Nausea & vomiting 787.01 and Diabetes mellitus type 2, uncontrolled 250.02 [facility] [address], [place] [address]- 9724 Feb, [facility] [address] [place] [address] 49487- 0479 Feb, Bipolar I disorder, most recent episode (or current) mixed, moderate 296.62 [facility] [address], [place] [address]- 5745 Feb, Nausea and vomiting 787.01 ; Left elbow pain 719.42 ; Anuria 788.5 and Diabetes 250.00 [facility] [address], [place] [address]- 2307 Feb, [facility] [address], [place] [address]- 6173 Feb, Hypopotassemia 276.8 and Hypokalemia 276.8 [facility] [address], [place] [address]- 4891 Feb, Hypopotassemia 276.8 and Hypokalemia 276.8 [facility] [address], [place] [address]- 5217 Feb, Seborrheic keratoses 702.19 [facility] [id number] [place] [address] 31778- 8719 Feb, Hypopotassemia 276.8 and Low magnesium levels 275.2 [facility] [address] [place] [address] 93635- 2087 January, [facility] [address], [place] [address]- 1367 January, [facility] [id number] [place] [address] 49376- 2747 January, [facility] [address], [place] [address]- 6436 January, Scalp lesion 709.9 [facility] [id number] [place] [address] 07555- 5287 January, [facility] [address], [place] [address]- 4486 Dec, Tear of medial cartilage or meniscus of knee, current 836.0 and 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 [facility] [address], [place] [address]- 6681 Dec, [facility] [address], [place] [address]- 8465 Dec, [facility] [id number] [place] [address]- 4426 28 Dec, 2014 Squamous cell carcinoma, 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 [facility] [place] [facility] [address] [id number] [place] [address]- 4910 14 Dec, 2014 [facility] [place] [facility] [address] [id number] [place] [address]- 3576 13 Dec, 2014 [facility] [place] [facility] [address] [id number] [place] [address]- 6482 Nov, [facility] [place] [facility] [address] [id number] [place] [address]- 6658 Nov, [facility] [place] [facility] [address] [id number] [place] [address]- 4147 Nov, [facility] [place] [facility] [address] [facility] [id number] [place] [address]- 4423 Nov, [facility] [place] [facility] [address] [facility] [id number], [place] [address]- 8760 Nov, [facility] [place] [facility] [address] [facility] [id number] [place] [address]- 5795 Nov, [facility] [place] [facility] [address] [facility] [id number], [place] [address]- 2270 Nov, [facility] [place] [facility] [address] [facility] [id number], [place] [address]- 1294 Nov, [facility] [place] [facility] [address] [id number], [place] [address]- 3490 Nov, [facility] [place] [facility] [address] [id number] [place] [address]- 5516 Nov, [facility] [place] [facility] [address] [facility] [id number] 3239 Nov, [facility] [place] [facility] [address] [facility] [id number], [place] [address]- 7175 Nov, [facility] [place] [facility] [address] [facility] [id number], [place] [address]- 1838 Oct, 2014 [facility] [place] [facility] [address] [id number] [place] [address]- 3957 Oct, 2014 [facility] [place] [facility] [address] [id number] [place] [address]- 9916 Oct, 2014 [facility] [place] [facility] [address] [facility] [id number] [place] [address]- 5735 Oct, 2014 [facility] [place] [facility] [address] [id number] [place] [address]- 2905 Oct, 2014 [facility] [place] [facility] [address] [id number] [place] [address]- 6877 Oct, 2014 [facility] [place] [facility] [address] [facility] [id number] [place] [address]- 4418 Oct, 2014 [facility] [place] [facility] [id number] [address]- 8551 Oct, 2014 [facility] [place] [facility] [address] [facility] [id number] [place] [address]- 6653 Oct, [facility] [place] [facility] [id number] [place] [address]- 1486 Sep, [facility] [place] [facility] [address] [facility] [id number], [place] [address]- 5834 Sep, [facility] [place] [facility] [address] [facility] [id number] [place] [address]- 2696 Sep, [facility] [place] [facility] [address] [id number], [place] [address]- 7097 Sep, [facility] [place] [facility] [address] [id number] [place] [address]- 3870 Sep, [facility] [place] [facility] [address] [facility] [id number] [place] [address]- 0782 Sep, [facility] [place] [facility] [address] [facility] [id number], [place] [address]- 0290 Sep, [facility] [place] [facility] [address] [id number] [place] [address]- 9125 Sep, [facility] [place] [facility] [address] [id number] [place] [address]- 4929 Sep, [facility] [place] [facility] [address] [id number] [place] [address]- 8439 Sep, [facility] [place] [facility] [address] [id number] [place] [address]- 7614 Sep, [facility] [place] [facility] [address] [id number] [place] [address]- 3079 Sep, [facility] [place] [facility] [address] [id number] [place] [address]- 3654 Sep, [facility] [place] [facility] [address] [id number] [place] [address]- 8609 Sep, [facility] [place] [facility] [address] [id number] [place] [address]- 6955 Sep, [facility] [place] [facility] [address] [id number] [place] [address]- 8936 Sep, [facility] [place] [facility] [address] [id number], [place] [address]- 3344 Aug, [facility] [place] [facility] [address] [id number] [place] [address]- 3959 Aug, [facility] [place] [facility] [address] [id number], [place] [address]- 6887 Aug, [facility] [place] [facility] [address] [id number] [place] [address]- 4346 Aug, [facility] [place] [facility] [address] [id number] [place] [address]- 6986 Aug, [facility] [place] [facility] [address] [id number] [place] [address]- 7056 Aug, [facility] [place] [facility] [address] [id number], [place] [address]- 2431 Aug, [facility] [address] [id number] [place] [address]- 4936 Aug, [facility] [address] [id number] [place] [address]- 3702 Aug, [facility] [address] [id number] [place] [address]- 5956 Aug, [facility] [address] [id number] [place] [address]- 2376 Aug, [facility] [address] [place] [id number] Aug, [facility] [address] [id number] [place] [address]- 0689 Aug, [facility] [address] [id number] [place] [address]- 8333 Aug, [facility] [address] [id number] [place] [address]- 8612 Aug, [facility] [address] [id number] [place] [address]- 8498 Aug, [facility] [address] [id number] [place] [address]- 9978 Aug, [facility] [address] [id number] [place] [address]- 1956 Aug, [facility] [place] [facility] [address] [id number] [place] [address]- 5297 Aug, [facility] [place] [facility] [address] [id number] [place] [address]- 2081 Aug, [facility] [place] [facility] [address] [id number] [place] [address]- 8697 Aug, [facility] [place] [facility] [address] [id number] [place] [address]- 9343 Aug, [facility] [address] [id number] [place] [address]- 2926 Aug, [facility] [place] [facility] [address] [id number] [place] [address]- 3335 Aug, [facility] [place] [facility] [address] [id number] [place] [address]- 5048 Aug, [facility] [place] [facility] [address] [id number] [place] 9561 Aug, [facility] [place] [facility] [address] [id number] [place] [address]- 3521 Aug, [facility] [place] [facility] [address] [id number] [place] [address]- 3730 Aug, [facility] [place] [facility] [address] [id number] [place] [address]- 1493 Aug, [facility] [place] [facility] [address] [id number] [place] [address]- 2495 Aug, [facility] [place] [facility] [address] [id number] [place] [address]- 2144 Jul, [facility] [place] [facility] [address] [id number] [place] [address]- 5034 Jul, [facility] [place] [facility] [address] [facility] [id number] [place] [address]- 0656 Jul, [facility] [place] [facility] [address] [id number] [place] [address]- 7300 Jul, [facility] [place] [facility] [address] [id number] [place] [address]- 6368 Jul, [facility] [place] [facility] [address] [id number] [place] [address]- 5000 Jul, [facility] [place] [facility] [address] [id number] [place] [address]- 7481 Jul, [facility] [place] [facility] [address] [id number] [place] [address]- 5248 Jul, [facility] [place] [facility] [address] [id number] [place] [address]- 7333 Jul, [facility] [place] [facility] [address] [id number] [place] 6415 Jul, [facility] [place] [facility] [address] [id number] [place] [address]- 6352 Jun, [facility] [place] [facility] [address] [id number] [place] [address]- 1646 Jun, [facility] [place] [facility] [address] [id number] [place] [address]- 7463 Jun, [facility] [place] [facility] [address] [id number] [place] [address]- 0169 Jun, [facility] [place] [facility] [address] [id number] [place] [address]- 4744 Jun, [facility] [place] [facility] [address] [id number] [place] [address]- 9399 Jun, [facility] [place] [facility] [address] [id number] [place] [address]- 6017 Jun, [facility] [place] [facility] [address] [id number] [place] [address]- 8809 Jun, [facility] [place] [facility] [address] [id number] [place] [address]- 4002 Jun, [facility] [place] [facility] [address] [id number] [place] [address]- 5928 Jun, [facility] [place] [facility] [address] [id number] [place] [address]- 2809 May, [facility] [place] [facility] [address] [id number] [place] [address]- 3852 29 May, 2014 [facility] [place] [facility] [address] [id number] [place] [address]- 0929 May, [facility] [place] [facility] [address] [id number] [place] [address]- 8564 26 May, 2013 [facility] [place] [facility] [address] [id number] [place] [address] 2546 17 May, 2013 [facility] [place] [facility] [address] [id number] [place] [address] 2546 17 May, 2013 [facility] [place] [facility] [address] [id number] [place] [address] 2546 15 May, 2013 [facility] [place] [facility] [address] [id number] [place] [address] 2546 15 May, 2013 [facility] [place] [facility] [address] [id number] [place] [address] 2549 15 May, 2013 [facility] [place] [facility] [address] [id number] [place] [address]- 9978 15 May, 2013 [facility] [place] [facility] [address] [id number] [place] [address]- 7048 10 May, 2013 [facility] [place] [facility] [address] [id number] [place] [address] 10 May, 2013 [facility] [place] [facility] [address] [id number] [place] [address] 09 May, 2013 [facility] [place] [facility] [address] [id number] [place] [address] 09 May, 2013 [facility] [place] [facility] [address] [id number] [place] [address]47 04 May, 2013 [facility] [place] [facility] [address] [id number] [place] [address] May, 2013 [facility] [place] [facility] [address] [id number] [place] [address] Apr, [facility] [place] [facility] [address] [id number] [place] [address] Apr, [facility] [place] [facility] [address] [id number] [place] [address] Apr, [facility] [place] [facility] [address] [id number] [place] [address] Apr, [facility] [place] [facility] [address] [id number] [place] [address] Apr, [facility] [place] [facility] [address] [id number] [place] [address] Apr, [facility] [place] [facility] [address] [id number] [place] [address] Apr, [facility] [place] [facility] [address] [id number] [place] [address] Apr, [facility] [place] [facility] [address] [id number] [place] [address] Apr, [facility] [place] [facility] [address] [id number] [place] [address] Apr, [facility] [place] [facility] [address] [id number] [place] [address] Apr, [facility] [place] [facility] [address] [id number] [place] [address] 1987 Apr, [facility] [place] [facility] [address] [id number] [place] [address] Apr, [facility] [place] [facility] [address] [id number] [place] [address] Apr, [facility] [place] [facility] [address] [id number] [place] [address] Apr, [facility] [place] [facility] [address] [id number] [place] [address] Mar, [facility] [place] [facility] [address] [id number] [place] [address]- [address] Mar, [facility] [place] [facility] [address] [id number] [place] [address]- [address] Mar, [facility] [place] [facility] [address] [id number] [place] [address] Mar, [facility] [place] [facility] [address] [id number] [place] [address] Mar, 2013 [facility] [place] [facility] [address] [id number] [place] [address] Mar, 2013 [facility] [place] [facility] [address] [id number] [place] [address] Mar, 2013 [facility] [place] [facility] [address] [id number] [place] [address] Mar, 2013 [facility] [place] [facility] [address] [id number] [place] [address] Mar, 2013 [facility] [place] [facility] [address] [id number] [place] [address] Mar, 2013 [facility] [place] [facility] [address] [id number] [place] [address] Mar, 2013 [facility] [place] [facility] [address] [id number] [place] [address] Mar, 2013 [facility] [place] [facility] [address] [id number] [place] [address] 98[address] Mar, 2013 [facility] [place] [facility] [address] [id number] [place] [address] Mar, 2013 [facility] [place] [facility] [address] [id number] [place] [address] Mar, 2013 [facility] [place] [facility] [address] [id number] [place] [address] Mar, 2013 [facility] [place] [facility] [address] [id number] [place] [address] Mar, [facility] [place] [facility] [address] [id number] [place] [address] Mar, [facility] [place] [facility] [address] [id number] [place] [address] Feb, [facility] [place] [facility] [address] [id number] [place] [address] Feb, [facility] [place] [facility] [address] [id number] [place] [address] Feb, [facility] [place] [facility] [address] [id number] [place] [address]- [address] Feb, [facility] [place] [facility] [address] [id number] [place] [address] Feb, [facility] [place] [facility] [address] [id number] [place] [address] Feb, [facility] [place] [facility] [address] [id number] [place] [address]- [address] Feb, [facility] [place] [facility] [address] [id number] [place] [address]- [address] Feb, [facility] [place] [facility] [address] [id number] [place] [address] 69[address] Feb, [facility] [place] [facility] [address] [id number] [place] [address] Feb, [facility] [place] [facility] [address] [id number] [place] [address]653 Feb, [facility] [place] [facility] [address] [id number] [place] [address]- [address] Feb, [facility] [place] [facility] [address] [id number] [place] [address]- [address] Feb, [facility] [place] [facility] [address] [id number] [place] [address]- [address] Feb, [facility] [place] [facility] [address] [id number] [place] [address]- [address] January, [facility] [place] [facility] [address] [id number] [place] [address]- [address] January, [facility] [place] [facility] [address] [address] [id number] [place] [address] January, [facility] [place] [facility] [address] [id number] [place] [address] 8573 January, [facility] [place] [facility] [address] [id number] [place] [address] 1452 January, [facility] [place] [facility] [address] [id number] [place] [address] 0597 January, [facility] [place] [facility] [address] [id number] [place] [address] 0715 January, [facility] [place] [facility] [address] [id number] [place] [address] 6874 January, [facility] [place] [facility] [address] [id number] [place] [address] 9999 January, [facility] [place] [facility] [address] [id number] [place] [address] 9948 January, [facility] [place] [facility] [address] [id number] [place] [address]- 7277 January, [facility] [place] [facility] [address] [id number] [place] [address] 9752 January, [facility] [place] [facility] [address] [id number] [place] [address] January[facility] [place] [facility] [address] [id number] [place] [address] 9725 January, [facility] [place] [facility] [address] [id number] [place] [address]- 2674 Dec, [facility] [place] [facility] [address] [id number] [place] [address] 8163 Dec, [facility] [place] [facility] [address] [id number] [place] [address]- 7788 Dec, [facility] [place] [facility] [address] [id number] [place] [address]- 1653 Dec, [facility] [place] [facility] [address] [id number] [place] [address]- 0902 Dec, [facility] [place] [facility] [address] [id number] [place] [address]- 3998 Dec, [facility] [place] [facility] [address] [id number] [place] [address]- 0845 Dec, [facility] [place] [facility] [address] [id number] [place] [address]- 6894 Dec, [facility] [place] [facility] [address] [id number] [place] [address]- 6880 Dec, [facility] [place] [facility] [address] [id number] [place] [address]- 7245 Dec, [facility] [place] [facility] [address] [id number] [place] [address]- 5521 Nov, [facility] [place] [facility] [address] [id number] [place] [address]- 8468 Nov, [facility] [place] [facility] [address] [id number] [place] [address]- 8446 Nov, [facility] [place] [facility] [address] [id number] [place] [address]- 1467 Nov, [facility] [place] [facility] [address] [id number] [place] [address]- 6807 Nov, [facility] [place] [facility] [address] [id number] [place] [address]- 2502 Nov, [facility] [place] [facility] [address] [id number], [place] [address] 5672 Nov, [facility] [place] [facility] [address] [id number] [place] [address]- 2272 Nov, [facility] [place] [facility] [address] [id number] [place] [address]- 5392 Nov, [facility] [place] [facility] [address] [id number] [place] [address]- 3365 Nov, [facility] [place] [facility] [address] [facility] [id number] [place] [address]- 6880 Oct, [facility] [place] [facility] [address] [id number] [place] [address]- 6432 Oct, [facility] [place] [facility] [address] [id number] [place] [address]- 5166 Oct, [facility] [place] [facility] [address] [facility] [id number] [place] [address]- 3663 Oct, [facility] [place] [facility] [address] [id number] [place] [address]- 9485 Oct, [facility] [place] [facility] [address] [facility] [id number] [place] [address]- 3179 Oct, [facility] [place] [facility] [address] [facility] [id number] [place] [address]- 9360 Oct, [facility] [place] [facility] [address] [id number] [place] [address]- 2590 Oct, [facility] [place] [facility] [address] [facility] [id number] [place] [address]- 7722 Oct, [facility] [place] [facility] [address] [facility] [id number] [place] [address]- 0499 Oct, [facility] [place] [facility] [address] [facility] [id number] [place] [address]- 0677 Oct, [facility] [place] [facility] [address] [facility] [id number], [place] [address]- 6128 Oct, [facility] [place] [facility] [address] [facility] [id number] [place] [address]- 3222 Oct, [facility] [place] [facility] [address] [facility] [id number] [place] [address]- 6191 Oct, [facility] [place] [facility] [address] [facility] [id number], [place] [address]- 9249 Sep, [facility] [place] [facility] [address] [facility] [id number], [place] [address]- 1138 Sep, [facility] [address] [id number] [place] [address]- 1346 15 Sep, 2013 [facility] [place] [facility] [address] [id number] [place] [address]- 5037 15 Sep, 2013 [facility] [place] [facility] [address] [id number] [place] [address]- 7147 14 Sep, 2013 [facility] [place] [facility] [address] [id number] [place] [address]- 8556 14 Sep, 2013 [facility] [place] [facility] [address] [id number] [place] [address]- 0458 Sep, [facility] [place] [facility] [address] [id number] [place] [address]- 1368 Sep, [facility] [place] [facility] [address] [id number] [place] [address]- 1365 Sep, [facility] [place] [facility] [address] [id number] [place] [address]- 4610 08 Sep, 2013 [facility] [place] [facility] [address] [id number] [place] [address]- 3097 10 Aug, 2013 [facility] [place] [facility] [address] [id number] [place] [address]- 7602 Aug, [facility] [place] [facility] [address] [id number] [place] [address]- 5012 Jul, [facility] [place] [facility] [address] [id number] [place] [address]- 0736 Jul, [facility] [place] [facility] [address] [id number] [place] [address]- 3762 13 Jul, 2013 [facility] [place] [facility] [address] [id number] [place] [address]- 9058 13 Jul, 2013 [facility] [place] [facility] [address] [id number] [place] [address]- 6084 13 Jul, 2013 [facility] [place] [facility] [address] [id number] [place] [address]- 0483 13 Jul, 2013 [facility] [place] [facility] [address] [id number] [place] [address]- 7565 Jul, [facility] [place] [facility] [address] [id number] [place] [address]- 0306 Jul, [facility] [place] [facility] [address] [id number] [place] [address]- 5891 Jul, [facility] [place] [facility] [address] [id number] [place] [address]- 9821 08 Jul, 2013 [facility] [place] [facility] [address] [id number] [place] [address]- 2440 Jul, [facility] [place] [facility] [address] [id number] [place] [address]- 7886 Jul, [facility] [place] [facility] [address] [id number] [place] [address]- 4150 Jul, [facility] [place] [facility] [address] [id number] [place] [address]- 3793 Jul, [facility] [place] [facility] [address] [id number] [place] [address]- 0819 Jul, [facility] [place] [facility] [address] [facility] [id number] [place] [address]- 7810 Jul, [facility] [place] [facility] [address] [id number] [place] [address]- 9727 Jul, [facility] [place] [facility] [address] [id number] [place] [address]- 1973 Jul, [facility] [place] [facility] [address] [id number] [place] [address]- 1717 Jul, [facility] [place] [facility] [address] [id number] [place] [address]- 4784 Jun, [facility] [place] [facility] [address] [id number] [place] [address]- 3718 Jun, 2012 [facility] [place] [facility] [address] [id number] [place] [address]- 7908 16 Jun, 2012 [facility] [place] [facility] [address] [id number] [place] [address]- 0576 16 Jun, 2012 [facility] [place] [facility] [address] [id number] [place] [address]- 7021 16 Jun, 2012 [facility] [place] [facility] [address] [id number] [place] [address]- 4393 16 Jun, 2012 [facility] [place] [facility] [address] [id number] [place] [address]- 4413 10 Jun, 2012 [facility] [place] [facility] [address] [id number] [place] [address]- 6587 10 Jun, 2012 [facility] [place] [facility] [address] [id number] [place] [address]- 6875 09 Jun, 2012 [facility] [place] [facility] [address] [id number], [place] [address]- 4101 09 Jun, 2013 [facility] [place] [facility] [address] [id number] [place] [address]- 0546 Jun, [facility] [place] [facility] [address] [id number], [place] [address]- 8649 26 Sep, 2012 [facility] [place] [facility] [address] [id number], [place] [address]- 8254 25 Sep, 2012 [facility] [place] [facility] [address] [id number], [place] [address]- 3498 19 Sep, 2012 [facility] [place] [facility] [address] [id number] [place] [address]- 9298 17 Sep, 2012 [facility] [place] [facility] [address] [id number], [place] [address]- 9046 11 Sep, 2012 [facility] [place] [facility] [address] [id number], [place] [address]- 9136 10 Sep, 2012 [facility] [place] [facility] [address] [id number] [place] [address]- 8937 May, [facility] [address] [id number] [place] [address]- 8028 May, [facility] [place] [facility] [address] [id number] [place] [address]- 7756 Apr, [facility] [place] [facility] [address] [id number] [place] [address]- 7888 Apr, [facility] [place] [facility] [address] [id number] [place] [address]- 4704 Apr, [facility] [place] [facility] [address] [id number] [place] [address]- 2471 Apr, [facility] [place] [facility] [address] [id number] [place] [address]- 7476 Apr, [facility] [place] [facility] [address] [id number] [place] [address]- 5319 Mar, [facility] [place] [facility] [address] [id number] [place] [address]- 7832 Mar, [facility] [place] [facility] [address] [id number] [place] [address]- 2445 Mar, [facility] [place] [facility] [address] [id number] [place] [address]- 7516 Mar, [facility] [place] [facility] [address] [id number] [place] [address]- 1564 Mar, [facility] [place] [facility] [address] [id number] [place] [address]- 7146 Mar, [facility] [place] [facility] [address] [id number] [place] [address]- 9870 Mar, [facility] [place] [facility] [address] [id number] [place] [address]- 0118 Mar, [facility] [place] [facility] [address] [id number] [place] [address]- 6648 Feb, [facility] [place] [facility] [address] [id number] [place] [address]- 5562 Feb, [facility] [place] [facility] [address] [id number] [place] [address]- 9440 January, [facility] [place] [facility] [address] [id number] [place] [address]- 1065 January, [facility] [place] [facility] [address] [id number] [place] [address]- 0945 Dec, [facility] [place] [facility] [address] [id number] [place] [address]- 9686 Dec, [facility] [place] [facility] [address] [id number] [place] [address]- 5908 Nov, [facility] [address] [id number] [place] [address]- 0582 Nov, [facility] [place] [facility] [address] [id number] [place] [address]- 0526 Nov, [facility] [place] [facility] [address] [id number] [place] [address]- 0908 Nov, [facility] [place] [facility] [address] [id number] [place] [address]- 0338 Oct, [facility] [place] [facility] [address] [id number] [place] [address]- 1209 Oct, [facility] [place] [facility] [address] [id number] [place] [address]- 5064 Oct, [facility] [place] [facility] [address] [id number] [place] [address]- 4309 Oct, [facility] [place] [facility] [address] [id number] [place] [address]- 4385 16 Oct, 2012 [facility] [place] [facility] [address] [id number] [place] [address]- 2190 14 Oct, 2012 [facility] [place] [facility] [address] [id number] [place] [address]- 2775 08 Oct, 2012 [facility] [address] [id number] [place] [address]- 3175 07 Oct, 2012 [facility] [address] [id number] [place] [address]- 8616 03 Oct, 2012 [facility] [address] [id number] [place] [address]- 7513 30 Sep, 2012 [facility] [address] [id number] [place] [address]- 6090 29 Sep, 2012 [facility] [address] [id number] [place] [address]- 8724 Sep, [facility] [address] [id number] [place] [address]- 6640 Sep, [facility] [address] [id number] [place] [address]- 8228 17 Sep, 2012 [facility] [address] [id number] [place] [address]- 5308 Sep, [facility] [address] [id number] [place] [address]- 3040 Sep, [facility] [address] [id number] [place] [address]- 3624 08 Sep, 2012 [facility] [address] [id number] [place] [address]- 0292 Aug, [facility] [address] [id number] [place] [address]- 5183 Aug, [facility] [place] [facility] [address] [id number] [place] [address]- 3191 Aug, [facility] [place] [facility] [address] [id number] [place] [address]- 4466 Aug, [facility] [address] [id number] [place] [address]- 3871 Aug, [facility] [place] [facility] [address] [id number] [place] [address]- 4246 Aug, [facility] [place] [facility] [address] [id number] [place] [address]- 7498 Aug, [facility] [place] [facility] [address] [id number] [place] [address]- 0907 Aug, [facility] [place] [facility] [address] [id number] [place] [address], [place] [address]- 2330 Jul, [facility] [place] [facility] [address] [id number] [place] [address]- 3699 Jul, [facility] [place] [facility] [address] [id number] [place] [address]- 2572 Jul, [facility] [place] [facility] [address] [id number] [place] [address]- 8752 Jul, [facility] [place] [facility] [address] [id number] [place] [address]- 3166 Jul, [facility] [place] [facility] [address] [id number] [place] [address]- 3616 Jul, [facility] [place] [facility] [address] [id number] [place] [address]- 3817 Jun, [facility] [place] [facility] [address] [id number] [place] [address]- 6969 Jun, [facility] [place] [facility] [address] [id number], [place] [address]- 0416 Jun, [facility] [place] [facility] [address] [id number] [place] [address]- 7225 Jun, [facility] [place] [facility] [address] [id number] [place] [address]- 1445 Jun, [facility] [place] [facility] [address] [id number] [place] [address]- 4434 Jun, [facility] [place] [facility] [address] [id number], [place] [address]- 6291 Jun, [facility] [place] [facility] [address] [id number] [place] [address]- 5294 Jun, [facility] [place] [facility] [address] [id number] [place]596 Jun, [facility] [place] [facility] [address] [id number] [place] [address]- 0086 May, [facility] [place] [facility] [address] [id number] [place] [address]- 6188 24 May, 2012 [facility] [place] [facility] [address] [id number] [place] [address]- 5276 May, [facility] [place] [facility] [address] [id number] [place] [address]- 0764 Apr, [facility] [place] [facility] [address] [id number] [place] [address]- 0461 Apr, [facility] [place] [facility] [address] [id number] [place] [address]- 5714 Apr, [facility] [place] [facility] [address] [id number] [place] [address]- 3034 Apr, [facility] [place] [facility] [address] [id number] [place] [address]- 1319 Apr, [facility] [place] [facility] [address] [id number] [place] [address]- 7271 Apr, [facility] [place] [facility] [address] [id number] [place] [address]- 9905 Mar, [facility] [place] [facility] [address] [id number] [place] [address]- 5565 Mar, [facility] [place] [facility] [address] [id number] [place] [address]- 0036 Mar, [facility] [place] [facility] [address] [id number] [place] [address]- 6343 Mar, [facility] [place] [facility] [address] [id number] [place] [address]- 6237 29 Feb, 2012 [facility] [address] [id number] [place] [address]- 0808 Feb, [facility] [address] [id number] [place] [address]- 0703 Feb, [facility] [address] [id number] [place] [address]- 6368 Feb, [facility] [address] [id number] [place] [address]- 3245 Feb, [facility] [address] [id number] [place] [address]- 6494 January, [facility] [address] [id number] [place] [address]- 2512 January, [facility] [address] [id number] [place] [address]- 5110 January, [facility] [address] [id number] [place] [address] January, [facility] [address] [id number] [place] [address] January, [facility] [address] [id number] [place] [address] January, [facility] [address] [id number] [place] [address] Dec, [facility] [address] [id number] [place] [address] Dec, [facility] [place] [facility] [address] [id number] [place] [address] Dec, [facility] [place] [facility] [address] [id number] [place] [address] Dec, [facility] [address] [id number] [place] [address] Dec, [facility] [address] [id number] [place] [address] 27 Nov, 2011 [facility] [place] [facility] [address] [id number] [place] [address] 14 Nov, 2011 [facility] [place] [facility] [address] [id number] [place] [address] Nov, [facility] [place] [facility] [address] [id number] [place] [address] Nov, [facility] [address] [id number] [place] [address]20 29 Oct, 2011 [facility] [place] [facility] [address] [id number] [place] [address] 28 Oct, 2011 [facility] [place] [facility] [address] [id number] [place] [address] 24 Oct, 2011 [facility] [place] [facility] [address] [id number] [place] [address]- 1411 13 Oct, 2011 [facility] [place] [facility] [address] [id number] [place] [address]- 1140 08 Oct, 2011 [facility] [place] [facility] [address] [id number] [place] [address] Sep, [facility] [place] [facility] [address] [id number] [place] [address] Sep, [facility] [place] [facility] [address] [id number] [place] [address] Sep, [facility] [place] [facility] [address] [id number] [place] [address] Sep, [facility] [place] [facility] [address] [id number] [place] [address] Sep, [facility] [place] [facility] [address] [id number] [place] [address] Sep, [facility] [place] [facility] [address] [id number] [place] [address] Aug, [facility] [place] [facility] [address] [id number] [place] [address] Aug, [facility] [place] [facility] [address] [id number] [place] [address] Aug, [facility] [place] [facility] [address] [id number] [place] [address] Jul, [facility] [place] [facility] [address] [id number] [place] [address] Jul, [facility] [place] [facility] [address] [id number] [place] [address] Jul, [facility] [place] [facility] [address] [id number] [place] [address] Jul, [facility] [place] [facility] [address] [id number] [place] [address] Jun, [facility] [place] [facility] [address] [id number] [place] [address] Jun, [facility] [place] [facility] [address] [id number] [place] [address] Jun, [facility] [place] [facility] [address] [id number] [place] [address] Jun, [facility] [place] [facility] [address] [id number] [place] [address] Jun, [facility] [place] [facility] [address] [id number] [place] [address] 74[address] Jun, [facility] [place] [facility] [address] [id number] [place] [address] Mar, [facility] [place] [facility] [address] [id number] [place] [address]- [address] Dec, [facility] [place] [facility] [address] [id number] [place] [address] 8477 Dec, [facility] [place] [facility] [address] [id number] [place] [address]81 18 Nov, 2010 [facility] [address] [id number] [place] [address]696 16 Nov, 2010 [facility] [address] [id number] [place] [address]- 0269 10 Sep, 2010 [facility] [address] [id number] [place] [address]- 8026 31 Aug, 2010 [facility] [address] [id number] [place] [address]- [address] 29 Aug, 2010 [facility] [address] [id number] [place] [address]- 30[address] Aug, [facility] [address] [id number] [place] [address]- 97[address] Aug, [facility] [address] [id number] [place] [address]- [address]874 Aug, [facility] [address] [id number] [place] [address]- 1034 14 Aug, 2010 [facility] [address] [id number] [place] [address]- 6[address] Aug, [facility] [address] [id number] [place] [address]- [address]247 08 Aug, 2010 [facility] [address] [id number] [place] [address]- [address]672 07 Aug, 2010 [facility] [address] [id number] [place] [address] 06 Aug, 2010 [facility] [place] [facility] [address] [id number] [place] [address]- 2546 Aug, [facility] [address] [id number] [place] [address]- 56[address] Aug, [facility] [address] [id number] [place] [address]- 2537 Jul, [facility] [place] [facility] [address] [id number] [place] [address]- 9926 Jul, [facility] [place] [facility] [address] [id number] [place] [address]- 5637 Jul, [facility] [place] [facility] [address] [id number] [place] [address]- [address]677 Jul, [facility] [place] [facility] [address] [id number] [place] [address]- 5936 Jul, [facility] [place] [facility] [address] [id number] [place] [address]- 30[address] Jul, [facility] [place] [facility] [address] [id number] [place] [address]- [address]295 24 Jun, 2010 [facility] [place] [facility] [address] [id number] [place] [address]- [address]201 Jun, [facility] [place] [facility] [address] [id number] [place] [address]- [address] Jun, [facility] [place] [facility] [address] [id number] [place] [address]- 5846 Jun, [facility] [place] [facility] [address] [id number] [place] [address]- 8125 Apr, [facility] [place] [facility] [address] [id number], [place] [address] Mar, [facility] [place] [facility] [address] [id number] [place] [address]- [address]994 Feb, [facility] [place] [facility] [address] [id number] [place] [address]- 8[address] January, [facility] [place] [facility] [address] [id number] [place] [address]- 9033 15 Dec, 2009 [facility] [place] [facility] [address] [id number] [place] [address]- 2009 Nov, [facility] [place] [facility] [address] [id number] [place] [address]- 4837 31 Aug, 2009 [facility] [address] [id number] [place] [address] Aug, [facility] [place] [facility] [address] [id number] [place] [address] Aug, [facility] [place] [facility] [address] [id number] [place] [address] Jul, [facility] [place] [facility] [address] [id number] [place] [address] Jul, [facility] [address] [id number] [place] [address] Jul, [facility] [place] [facility] [address] [facility] [id number] [place] [address] Jun, [facility] [place] [facility] [address] [id number] [place] [address] Jun, [facility] [address] [id number], [place] [address] Jun, [facility] [place] [facility] [address] [id number] [place] [address] Jun, [facility] [place] [facility] [address] [facility] [id number], [place] [address] Jun, [facility] [place] [facility] [address] [id number], [place] [address] Jun, [facility] [place] [facility] [address] [id number], [place] [address] Apr, [facility] [place] [facility] [address] [id number], [place] [address] Apr, [facility] [place] [facility] [address] [facility] [id number], [place] [address] Feb, [facility] [place] [facility] [address] [id number], [place] [address] January, [facility] [address] [facility] [id number] [place] [address] Dec, IMMUNIZATIONS No Known Immunizations SOCIAL HISTORY Never Assessed REASON FOR VISIT [id number] PLAN OF CARE Activity Details Follow Up 2 Weeks Reason:depresion VITAL SIGNS MEDICATIONS Unknown Medications RESULTS No Results PROCEDURES Procedure Date Ordered Result Body Site [facility] VISIT MENTAL HEALTH ESTAB PT April 09, 2018 Psychotherapy, patient &/family, 45 minutes, established patient April 09, 2018 INSTRUCTIONS MEDICATIONS ADMINISTERED No Known Medications MEDICAL (GENERAL) HISTORY Type Description Date Medical History type II diabetes Medical History coronary artery disease stress test 01/5015 Medical History chronic obstructive pulmonary disease (COPD) Medical History gastroesophageal reflux disease (GERD) Medical History acute renal failure Medical History erectile dysfunction Medical History hyperlipidemia Medical History obesity Medical History skin cancer-basal cell R adventism (removed) Medical History Arthritis Medical History degenerative [...] 2009 Surgical History colonoscopy 2009 ([facility]), 2013 ([facility]) Surgical History heart 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 04/2014 Surgical History carotid US 05/2014 Surgical History resection of skin cancer from Right adventism Surgical History Biopsy of Lung Bilateral/Left lung lymph node 09/2016 Surgical History Bone Marrow Biopsy Surgical History port in the right chest wall 12/2016 Hospitalization History [facility] low potassium, low magnesium, chest painina 01/2015 Hospitalization History inability to urinate 09/16/15 Hospitalization History [facility] early Hospitalization History hyperkalemia 10/2017 Hospitalization History fluid in lung
--- OUTSIDE RECORDS SUMMARY | 2018-08-08 13:55 | XMS REPORT ---
Author Author BEREKET NANCY Organization [facility] Address [address] [place] [address] Care Team Providers Care Network Security Engineer Name Role Phone CLAUDIANANCY CURRIE Unavailable PROBLEMS Type Condition ICD9-CM Code SVA30-QO Code Onset Dates Condition Status SNOMED Code Problem Chronic lymphocytic leukemia C91.10 Active 15459818 Problem Lymphocytosis D72.820 Active 28490145 Problem Eye exam abnormal R93.8 Active 786893996 Problem Eustachian tube dysfunction, unspecified laterality H69.80 Active 88613797 Problem Essential hypertension I10 Active 95966524 Problem Dysuria R30.0 Active 34362618 Problem Diabetic polyneuropathy associated with type 2 diabetes mellitus E11.42 Active 56518873 Problem Cough R05 Active 33503551 Problem Polyneuropathy associated with underlying disease G63 Active 878582510 Problem Retinal edema H35.81 Active 0028806 Problem Bilateral primary osteoarthritis of knee M17.0 Active 054027483 Problem Primary osteoarthritis of right knee M17.11 Active [id number] Problem Pure hypercholesterolemia E78.00 Active 794413889 Problem DM neuro manif type II E11.49 Active 17448363 Problem Benign prostatic hyperplasia with lower urinary tract symptoms, unspecified morphology N40.1 Active 930779508 Problem Hypokalemia E87.6 Active 57199155 Problem 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 Active 651211867 Problem Anemia of chronic illness D63.8 Active 919215208 Problem Bipolar disorder, in partial remission, most recent episode depressed F31.75 Active 53129296 Problem Falling R29.6 Active 991649869 Problem Leukocytosis D72.829 Active 084035256 Problem Reactive airway disease J45.909 Active 620712132691 Problem Diabetes E11.9 Active 78867296 Problem Chronic pain G89.29 Active 19483805 Problem Anxiety F41.9 Active 93945585 Problem Morbid obesity E66.01 Active 588884384 Problem Bipolar I disorder, most recent episode (or current) mixed, moderate F31.62 Active 55612093 Problem Insomnia, unspecified type G47.00 Active 013610370 ALLERGIES No Information ENCOUNTERS Encounter Location Date Diagnosis [place] [id number] [place] [address] 78552- 0434 Jun, [place] [address] 17275- 7801 Apr, [place] [address] 37232- 7372 Apr, Chronic pain G89.29 [place] [address] 17014- 4656 Apr, Primary osteoarthritis of right knee M17.11 [place] [address] 35425- 8517 Mar, [place] [address] 11198- 8542 Mar, BMI 50.0-59.9, adult Z68.43 and Bipolar disorder, in partial remission, most recent episode depressed F31.75 [place] [address] 97403- 2510 Mar, Diabetes E11.9 ; Pure hypercholesterolemia E78.00 ; Essential hypertension I10 ; Nausea with vomiting, unspecified R11.2 and Headache, unspecified headache type R51 [place] [id number] [place] [address] 07814- 0432 Mar, Bipolar I disorder, most recent episode (or current) mixed, moderate F31.62 [place] [address] 26929- 4713 Mar, Bipolar I disorder, most recent episode (or current) mixed, moderate F31.62 [place] [id number] [place] [address] 43906- 0029 Mar, Chronic pain G89.29 [place] [address] [place] [address]- 6433 Mar, Bipolar I disorder, most recent episode (or current) mixed, moderate F31.62 [facility] [id number] [address] 6187 Feb, Bipolar I disorder, most recent episode (or current) mixed, moderate F31.62 [facility] [address] [place] [address] 33208- 0332 Feb, Chronic pain G89.29 [facility] [id number] [place] [address] 50825- 7707 Feb, Decubitus ulcer of right foot, stage 3 L89.893 and BMI 50.0- 59.9, adult Z68.43 [facility] [address] [address] 9197 Feb, Bipolar I disorder, most recent episode (or current) mixed, moderate F31.62 [facility] [address] [address]- 7821 Feb, [facility] [address] [place] [address] 31092- 4551 January, [facility] [address] [address]- 6177 January, Chronic pain G89.29 [facility] [address] [address]- 6017 January, Bipolar I disorder, most recent episode (or current) mixed, moderate F31.62 [facility] [address], [place] [address]- 6307 January, Bipolar I disorder, most recent episode (or current) mixed, moderate F31.62 [facility] [address] [address]- 7150 Dec, Bipolar I disorder, most recent episode (or current) mixed, moderate F31.62 and BMI 50.0-59.9, adult Z68.43 [facility] [address] [place] [address] 69255- 3575 Dec, Bipolar I disorder, most recent episode (or current) mixed, moderate F31.62 [facility] [id number] [place] [address] 92273- 5399 Dec, Chronic pain G89.29 [place] [id number] [place] [address] 74668- 4739 Dec, DM neuro manif type II E11.49 ; Right flank pain R10.9 ; 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 Z79.891 ; Encounter for medication monitoring Z51.81 and BMI 50.0-59.9, adult Z68.43 [place] [id number] [place] [address] 10661- 5049 Dec, Bipolar I disorder, most recent episode (or current) mixed, moderate F31.62 [place] [id number] [place] [address] 80577- 3699 Nov, Bipolar I disorder, most recent episode (or current) mixed, moderate F31.62 [place] [id number] [place] [address] 28628- 5755 Nov, Chronic pain G89.29 [place] [id number] [place] [address] 44673- 3363 Nov, Bipolar I disorder, most recent episode (or current) mixed, moderate F31.62 [place] [id number] [place] [address] 77029- 0237 Nov, Hypokalemia E87.6 [place] [id number] [place] [address] 96863- 7943 Nov, Bipolar I disorder, most recent episode (or current) mixed, moderate F31.62 [place] [address] [place] [address] 30533- 3739 Oct, Chronic pain G89.29 [facility] [id number] [place] [address] 47911- 9409 Oct, BMI 50.0-59.9, adult Z68.43 and Bipolar I disorder, most recent episode (or current) mixed, moderate F31.62 [place] [id number] [place] [address] 35406- 1435 Oct, Bipolar I disorder, most recent episode (or current) mixed, moderate F31.62 [place] [id number] [place] [address] 90790- 9793 Oct, [place] [address] 20566- 7241 Oct, Hypokalemia E87.6 [place] [id number] [place] [address] 34313- 1054 Oct, DM neuro manif type II E11.49 [place] [id number] [place] [address] 43365- 6978 Oct, Bipolar I disorder, most recent episode (or current) mixed, moderate F31.62 [place] [id number] [place] [address] 60268- 9693 Oct, Bipolar I disorder, most recent episode (or current) mixed, moderate F31.62 [place] [id number] [place] [address] 41261- 9288 Oct, Hyperkalemia E87.5 ; Falling R29.6 ; BMI 50.0-59.9, adult Z68.43 and Acute left ankle pain M25.572 [place] [id number] [place] [address] 22494- 4873 Oct, DM neuro manif type II E11.49 [place] [id number] [place] [address] 70029- 8621 Oct, [place] [address] 33911- 3484 Sep, Chronic pain G89.29 [facility] [id number] [place] [address] 34764- 7998 Sep, [facility] [id number] [place] [address] 86350- 2378 Sep, Bilateral primary osteoarthritis of knee M17.[address] 80335- 4164 Sep, Generalized edema R60.1 [place] [address] 83822- 7163 Sep, Bipolar I disorder, most recent episode (or current) mixed, moderate F31.62 [place] [id number] [place] [address] 90761- 8434 Sep, Hypoxia R09.02 ; Other hypervolemia E87.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 ; Anemia of chronic illness D63.8 and BMI 50.0- 59.9, adult Z68.43 [place] [id number] [place] [address] 81153- 6971 Sep, [place] [id number] [place] [address] 03337- 7530 Sep, Bipolar I disorder, most recent episode (or current) mixed, moderate F31.62 [place] [id number] [place] [address] 77727- 7828 Aug, Chronic pain G89.29 [place] [id number] [place] [address] 99144- 6341 Aug, Generalized edema R60.1 [facility] [id number] [place] [address] 01700- 5240 Aug, [place] [id number] [place] [address] 36879- 1981 Aug, [facility] [address] [address]- 0632 14 Aug, 2017 Bipolar I disorder, most recent episode (or current) mixed, moderate F31.62 [facility] [address] [place] [address] 85125- 4184 07 Aug, 2017 Bipolar I disorder, most recent episode (or current) mixed, moderate F31.62 [facility] [id number] [place] [address] 58270- 2858 04 Aug, 2017 Chronic pain G89.29 [place] [id number] [place] [address] 44267- 9249 30 Jul, 2017 Bipolar I disorder, most recent episode (or current) mixed, moderate F31.62 [place] [id number] [place] [address] 31171- 3169 27 Jul, 2017 Bipolar I disorder, most recent episode (or current) mixed, moderate F31.62 and BMI 60.0-69.9, adult Z68.44 [place] [id number] [place] [address] 74684- 1644 16 Jul, 2017 Bipolar I disorder, most recent episode (or current) mixed, moderate F31.62 [place] [address] [place] [address] 10368- 1269 06 Jul, 2017 Chronic pain G89.29 [facility] [id number] [place] [address] 71462- 8894 02 Jul, 2017 Bipolar I disorder, most recent episode (or current) mixed, moderate F31.62 [place] [id number] [place] [address] 89780- 7185 18 Jun, 2017 Polyneuropathy associated with underlying disease G63 and Diabetes E11.9 [facility] [id number] [place] [address] 89542- 2272 16 Jun, 2017 Bipolar I disorder, most recent episode (or current) mixed, moderate F31.62 [place] [id number] [address]- 5404 09 Jun, 2017 Chronic pain G89.29 [facility] [id number] [place] [address] 74103- 4062 27 May, 2017 Bipolar I disorder, most recent episode (or current) mixed, moderate F31.62 [facility] [id number] [place] [address] 04903- 7821 21 May, 2017 Bipolar I disorder, most recent episode (or current) mixed, moderate F31.62 [facility] [id number] [place] [address] 51654- 0322 20 May, 2017 Diabetic polyneuropathy associated with type 2 diabetes mellitus E11.42 [facility] [id number] [place] [address] 84630- 4833 18 May, 2017 Bipolar I disorder, most recent episode (or current) mixed, moderate F31.62 [facility] [id number] [place] [address] 35004- 7971 13 May, 2017 Bipolar I disorder, most recent episode (or current) mixed, moderate F31.62 [facility] [id number] [place] [address] 46754- 3552 May, Chronic pain G89.29 [facility] [address] [place] [address] 30537- 6768 Apr, Bipolar I disorder, most recent episode (or current) mixed, moderate F31.62 [facility] [id number] [place] [address] 56462- 1921 Apr, [facility] [id number] [place] [address] 29804- 5383 Apr, Chronic pain G89.29 and DM neuro manif type II E11.49 [facility] [id number] [place] [address] 96804- 7365 Apr, [facility] [id number] [place] [address] 10525- 4934 Apr, Bipolar I disorder, most recent episode (or current) mixed, moderate F31.62 [facility] [address] [address]- 1902 Apr, Chronic pain G89.29 [facility] [address] [address]- 9956 Apr, Iliotibial band syndrome, left M76.32 [facility] [id number] [place] [address] 55038- 7800 Apr, Bipolar I disorder, most recent episode (or current) mixed, moderate F31.62 [facility] [id number] [place] [address] 38788- 3604 Mar, Bipolar I disorder, most recent episode (or current) mixed, moderate F31.62 [facility] [address] [place] [address] 24287- 4728 Mar, Bipolar I disorder, most recent episode (or current) mixed, moderate F31.62 [facility] [address] [address]- 6758 Mar, [facility] [id number] [place] [address] 73039- 2252 Mar, Bipolar I disorder, most recent episode (or current) mixed, moderate F31.62 [facility] [address], [place] [address]- 3586 Mar, Chronic pain G89.29 [facility] [address] [address]- 6901 Mar, Bipolar I disorder, most recent episode (or current) mixed, moderate F31.62 [facility] [address], [place] [address]- 5879 Mar, Bipolar I disorder, most recent episode (or current) mixed, moderate F31.62 [facility] [address] [place] [address] 08225- 2203 Mar, Acute pain of left knee M25.562 ; Left hip pain M25.552 ; Generalized edema R60.1 and Tongue swelling R22.0 [facility] [id number] [place] [address] 11800- 3930 Mar, [facility] [id number] [place] [address] 73792- 2953 Feb, Chronic pain G89.29 [facility] [id number] [place] [address] 79384- 6949 Feb, Diabetes E11.9 [place] [id number] [place] [address] 10768- 6272 January, Chronic pain G89.29 [facility] [id number] [place] [address] 12836- 9995 January, [place] [id number] [place] [address] 15866- 1498 January, Bipolar I disorder, most recent episode (or current) mixed, moderate F31.62 [place] [id number] [place] [address] 00041- 5253 Dec, Bipolar I disorder, most recent episode (or current) mixed, moderate F31.62 [place] [id number] [place] [address] 89854- 6793 Dec, Chronic pain G89.29 [facility] [id number] [place] [address] 58531- 4570 Dec, Bipolar I disorder, most recent episode (or current) mixed, moderate F31.62 [place] [id number] [place] [address] 50855- 5444 Dec, Diabetes E11.9 ; Essential hypertension I10 ; Chronic pain G89.29 and Morbid obesity E66.01 [facility] [id number] [place] [address] 93208- 9387 Dec, [facility] [id number] [place] [address] [place] [address]- 5246 Dec, Bipolar I disorder, most recent episode (or current) mixed, moderate F31.62 [facility] [address], [place] [address]- 9956 Dec, Bipolar I disorder, most recent episode (or current) mixed, moderate F31.62 [facility] [address], [place] [address]- 5156 Nov, Chronic pain G89.29 [facility] [address] [address] 2546 Nov, Bipolar I disorder, most recent episode (or current) mixed, moderate F31.62 [facility] [address], [place] [address]- 9916 Nov, [facility] [address], [place] [address]- 2866 Nov, Bipolar I disorder, most recent episode (or current) mixed, moderate F31.62 [facility] [address], [place] [address]- 8371 Nov, Bipolar I disorder, most recent episode (or current) mixed, moderate F31.62 [facility] [address] [address]- 0166 Nov, [facility] [address], [place] [address]- 1606 Nov, [facility] [address], [place] [address] 2546 Nov, [facility] [address] [address]- 3576 Oct, Chronic pain G89.29 [facility] [address], [place] [address]- 2426 Oct, Bipolar I disorder, most recent episode (or current) mixed, moderate F31.62 [facility] [address] [place] [address] 09407- 3273 Oct, [facility] [id number] [place] [address] 22663- 0697 Oct, Chronic pain G89.29 ; Diabetes E11.9 ; Anxiety F41.9 and 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 [facility] [id number] [place] [address] 21334- 3896 Oct, [facility] [id number] [place] [address] 13767- 3290 Oct, Diabetes E11.9 [facility] [id number] [place] [address] 68911- 9453 Oct, Bipolar I disorder, most recent episode (or current) mixed, moderate F31.62 [facility] [id number] [place] [address] 76791- 3724 Sep, Chronic pain G89.29 [facility] [id number] [place] [address] 81425- 7340 Sep, Chronic pain G89.29 [facility] [id number] [place] [address] 96493- 0522 Aug, Chronic pain G89.29 [facility] [id number] [place] [address] 37890- 2353 Jul, [facility] [id number] [place] [address] 29953- 7433 Jul, Diabetes E11.9 [facility] [address] [place] [address] 09806- 8580 Jul, Chronic pain G89.29 [facility] [address] [place] [address] 60323- 2350 Jul, Bipolar I disorder, most recent episode (or current) mixed, moderate F31.62 [facility] [id number] [place] [address] 96185- 7978 Jun, Bipolar I disorder, most recent episode (or current) mixed, moderate F31.62 [place] [id number] [place] [address] 53314- 5784 Jun, [place] [id number] [place] [address] 20365- 8830 Jun, Bipolar I disorder, most recent episode (or current) mixed, moderate F31.62 [place] [address] 45850- 8558 May, Insomnia, unspecified type G47.00 [place] [address] 261875- 7210 May, Bipolar I disorder, most recent episode (or current) mixed, moderate F31.62 [place] [address] 13814- 7057 May, [place] [address] 47346- 8391 May, Bipolar I disorder, most recent episode (or current) mixed, moderate F31.62 [place] [id number] [place] [address] 26516- 2205 May, Diabetes E11.9 and Essential hypertension I10 [place] [id number] [place] [address] 42008- 4740 Apr, Chronic pain G89.29 [place] [address] 00150- 3287 Apr, Bipolar I disorder, most recent episode (or current) mixed, moderate F31.62 [place] [address] 14786- 3726 Apr, [place] [id number] [place] [address] 29573- 2936 Apr, [place] [address] 10295- 2812 Mar, Chronic pain G89.29 ; Headache, unspecified headache type R51 ; Neuropathy G62.9 ; Pain of right hip joint M25.551 and Essential hypertension I10 [place] [id number] [place] [address] 40922- 9536 Mar, Chronic pain G89.29 [place] [id number] [place] [address] 06206- 9550 Mar, Bipolar I disorder, most recent episode (or current) mixed, moderate F31.62 [place] [address] 93504- 5026 Feb, Bipolar I disorder, most recent episode (or current) mixed, moderate F31.62 and Insomnia, unspecified type G47.00 [place] [address] 26189- 2086 Feb, Chronic pain G89.29 [place] [address] 21030- 5307 Feb, Bipolar I disorder, most recent episode (or current) mixed, moderate F31.62 [place] [id number] [place] [address] 19814- 0005 January, Bipolar I disorder, most recent episode (or current) mixed, moderate F31.62 [place] [id number] [place] [address] 49326- 6525 January, Chronic pain G89.29 [place] [address] 38634- 9673 January, Chronic pain G89.29 and Essential hypertension I10 [place] [address] 28541- 2956 January, Bipolar I disorder, most recent episode (or current) mixed, moderate F31.62 [place] [id number] [place] [address] 86188- 9940 Dec, [place] [id number] [address] Dec, [facility] [id number] [place] [address] Dec, [facility] [id number] [address] Dec, [facility] [address] [place] [id number] [place] [address]- [address] Nov, Reactive airway disease J45.909 [facility] [id number] [place] [address]- [address] Nov, [facility] [address] [place] [id number] [place] [address] 284[address]- [address] Nov, [facility] [address] [place] [id number] [place] [address] 0[address]- [address] Nov, [facility] [address] [place] [id number] [place] [address]- [address] Nov, [facility] [id number] [place] [address]- [address] Nov, Onychomycosis B35.1 ; [place] M20.40 ; [place] or callus L84 and DM neuro manif type II E11.49 [facility] [address] [address] Nov, Chronic pain G89.29 ; Leukocytosis D72.829 and Diabetes E11.9 [facility] [address], [place] [address] 7[address] Nov, [facility] [id number] [place] [address] 62389- 6287 Oct, Bronchitis J40 [facility] [address] [address] 7616 Oct, [facility] [id number] [place] [address] 73168- 6407 Oct, [facility] [id number] [place] [address] 29160- 8049 Oct, Mastoiditis, unspecified laterality H70.90 and Type 2 diabetes mellitus with complication E11.8 [facility] [id number] [place] [address] 86043- 4359 Sep, [facility] [address] [address]- 2836 Sep, Dysuria R30.0 ; Cough R05 ; Benign prostatic hyperplasia with lower urinary tract symptoms, unspecified morphology N40.1 ; Hypokalemia E87.6 and Eustachian tube dysfunction, unspecified laterality H69.80 [facility] [id number] [place] [address] 95855- 2698 Sep, Moderate mixed bipolar I disorder F31.62 [facility] [id number] [place] [address] 98697- 6209 Sep, Hypokalemia E87.6 [facility] [id number] [place] [address] 72514- 8780 Sep, [facility] [id number] [place] [address] 65708- 7682 Sep, Upper respiratory tract infection, unspecified type J06.9 [facility] [id number] [place] [address] 97967- 9348 Aug, [facility] [id number] [place] [address] 76089- 7942 Aug, Dysuria R30.0 [facility] [id number] [place] [address] 13290- 7657 Aug, [facility] [id number] [place] [address] 88867- 8419 Jul, [facility] [id number] [place] [address] 05486- 1831 Jul, [facility] [address] [address]- 2382 Jul, [facility] [address], [place] [address]- 3234 Jul, [facility] [address], [place] [address]- 1427 Jun, [facility] [id number] [place] [address] 10121- 8214 Jun, [facility] [address], [place] [address]- 2285 Jun, [facility] [id number] [place] [address] 17137- 6285 May, [facility] [id number] [place] [address] 11265- 1763 May, Bipolar I disorder, most recent episode (or current) mixed, moderate 296.62 [facility] [address], [place] [address]- 5737 May, [facility] [address], [place] [address]- 1019 May, Bipolar I disorder, most recent episode (or current) mixed, moderate 296.62 and Major depressive disorder, recurrent episode, severe, specified as with psychotic behavior 296.34 [facility] [address], [place] [address]- 7093 May, Bipolar I disorder, most recent episode (or current) mixed, moderate 296.62 [facility] [address] [address]- 3673 May, [facility] [address] 5263 Apr, [facility] [address], [place] [address]- 3351 Apr, [facility] [id number] [place] [address] 62043- 9358 Apr, Unspecified disorder of kidney and ureter 593.9 and Diabetes mellitus type 2, uncontrolled 250.02 [facility] [id number] [place] [address] 62651- 4501 Apr, [facility] [id number] [place] [address] 51285- 6459 Apr, [facility] [id number] [place] [address] 15310- 9220 Apr, [facility] [id number] [place] [address] 65562- 2139 Apr, [facility] [id number] [place] [address] 38261- 8320 Apr, Diabetes mellitus type II, uncontrolled 250.02 [facility] [id number] [place] [address] 59423- 8641 Apr, [facility] [id number] [place] [address] 02015- 9534 Mar, [facility] [id number] [place] [address] 05448- 7746 Mar, [facility] [id number] [place] [address] 06082- 4967 Mar, [facility] [id number] [place] [address] 08316- 8853 Mar, Major depressive disorder, recurrent episode, severe, specified as with psychotic behavior 296.34 and Bipolar I disorder, most recent episode (or current) mixed, moderate 296.62 [facility] [id number] [place] [address] 53365- 0598 Mar, Diabetes 250.00 ; Anuria 788.5 ; Nausea and vomiting 787.01 and Diarrhea 787.91 [facility] [id number] [place] [address] 46212- 0079 Mar, Diabetes 250.00 [facility] [address] [address]- 5754 Mar, [facility] [id number] [place] [address] 82144- 3543 Mar, Diabetes 250.00 [facility] [id number] [address]- 3554 Mar, [facility] [id number] [place] [address] 51190- 9282 Mar, [facility] [id number] [place] [address] 00510- 4956 Mar, [facility] [id number] [place] [address] 61139- 4199 Mar, [facility] [id number] [place] [address] 55383- 9371 Mar, Bipolar I disorder, most recent episode (or current) mixed, moderate 296.62 and Major depressive disorder, recurrent episode, severe, specified as with psychotic behavior 296.34 [facility] [id number] [place] [address] 30179- 6523 Mar, Magnesium deficiency 275.2 ; Hypokalemia 276.8 ; Nausea & vomiting 787.01 and Diabetes mellitus type 2, uncontrolled 250.02 [facility] [address], [place] [address]- 7026 Feb, [facility] [id number] [place] [address] 98241- 4080 Feb, Bipolar I disorder, most recent episode (or current) mixed, moderate 296.62 [facility] [id number] [place] [address] 85824- 2248 Feb, Nausea and vomiting 787.01 ; Left elbow pain 719.42 ; Anuria 788.5 and Diabetes 250.00 [facility] [address], [place] [address]- 6599 Feb, [facility] [address], [place] [address]- 9270 Feb, Hypopotassemia 276.8 and Hypokalemia 276.8 [facility] [id number] [place] [address] 09577- 7040 Feb, Hypopotassemia 276.8 and Hypokalemia 276.8 [facility] [id number] [place] [address] 66634- 5671 Feb, Seborrheic keratoses 702.19 [facility] [id number] [place] [address] 86353- 5367 Feb, Hypopotassemia 276.8 and Low magnesium levels 275.2 [facility] [id number] [place] [address] 47406- 2251 January, [facility] [id number] [place] [address] 78420- 7647 January, [facility] [id number] [place] [address] 06400- 4353 January, [facility] [id number] [place] [address] 99115- 4186 January, Scalp lesion 709.9 [facility] [id number] [place] [address] 57807- 8671 January, [facility] [id number] [place] [address] 07166- 6523 Dec, Tear of medial cartilage or meniscus of knee, current 836.0 and 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 [facility] [address] [address]- 7683 Dec, [facility] [id number] [place] [address] 37761- 4021 Dec, [facility] [address], [place] [address]- 7262 Dec, Squamous cell carcinoma, 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 [facility] [address] [id number] [place] [address]- 2572 14 Dec, 2014 [facility] [place] [facility] [address] [id number] [place] [address]- 7493 Dec, [facility] [place] [facility] [address] [id number] [place] [address]- 4183 Nov, [facility] [place] [facility] [address] [id number] [place] [address]- 5975 Nov, [facility] [place] [facility] [address] [id number] [place] [address]- 8278 Nov, [facility] [place] [facility] [address] [id number] [place] [address]- 6988 Nov, [facility] [place] [facility] [address] [facility] [id number] [place] [address]- 8220 Nov, [facility] [place] [facility] [address] [id number] [place] [address]- 0788 Nov, [facility] [place] [facility] [address] [id number] [place] [address]- 6745 Nov, [facility] [place] [facility] [address] [id number] [place] [address]- 5380 Nov, [facility] [place] [facility] [address] [facility] [id number] [place] [address]- 3157 Nov, [facility] [place] [facility] [address] [id number] [address]- 7320 Nov, [facility] [place] [facility] [address] [id number] [place] [address]- 6241 Nov, [facility] [place] [facility] [address] [id number] [place] 7587 Nov, [facility] [place] [facility] [address] [id number] 5379 Oct, [facility] [place] [facility] [address] [id number], [place] [address]- 8555 Oct, 2014 [facility] [place] [facility] [address] [id number] [place] [address]- 6598 Oct, 2014 [facility] [place] [facility] [address] [id number] [place] [address]- 7416 Oct, 2014 [facility] [place] [facility] [address] [id number] [place] [address]- 3256 Oct, 2014 [facility] [place] [facility] [address] [id number] [place] [address]- 6415 Oct, 2014 [facility] [place] [facility] [address] [id number] [place] [address]- 6559 Oct, 2014 [facility] [place] [facility] [address] [facility] [id number] [place] [address]- 3461 Oct, 2014 [facility] [place] [facility] [address] [facility] [id number] [place] [address]- 2130 Oct, 2014 [facility] [place] [facility] [address] [facility] [id number] [place] [address]- 9966 Sep, [facility] [place] [facility] [address] [facility] [id number] [place] [address]- 4430 Sep, [facility] [place] [facility] [address] [facility] [id number] [place] [address]- 3173 Sep, [facility] [place] [facility] [address] [facility] [id number] [place] [address]- 1223 Sep, [facility] [place] [facility] [address] [facility] [id number] [address]- 7869 Sep, [facility] [place] [facility] [address] [id number] [place] [address]- 4478 Sep, [facility] [place] [facility] [address] [facility] [id number] [place] [address]- 6510 Sep, [facility] [place] [facility] [address] [facility] [id number] [place] [address]- 6684 Sep, [facility] [place] [facility] [address] [id number] [place] [address]- 1729 Sep, [facility] [place] [facility] [address] [id number] [place] [address]- 5045 Sep, [facility] [place] [facility] [address] [id number] [place] [address]- 8842 Sep, [facility] [place] [facility] [address] [id number] [place] [address]- 6699 Sep, [facility] [place] [facility] [address] [id number] [place] [address]- 9977 Sep, [facility] [place] [facility] [address] [id number] [place] [address]- 9691 Sep, [facility] [place] [facility] [address] [id number] [place] [address]- 4179 Sep, [facility] [place] [facility] [address] [id number] [place] [address]- 4357 Sep, [facility] [place] [facility] [address] [id number] [place] [address]- 5944 Aug, [facility] [place] [facility] [address] [id number] [place] [address]- 9120 Aug, [facility] [place] [facility] [address] [id number] [place] [address]- 2866 Aug, [facility] [place] [facility] [address] [id number] [place] [address]- 1609 31 Aug, 2014 [facility] [place] [facility] [address] [id number] [place] [address]- 1500 Aug, [facility] [place] [facility] [address] [id number] [place] [address]- 4242 Aug, [facility] [place] [facility] [address] [id number] [place] [address]- 1170 17 Aug, 2014 [facility] [place] [facility] [address] [id number], [place] [address]- 9899 Aug, [facility] [address] [id number] [place] [address]- 9364 Aug, [facility] [address] [id number] [place] [address]- 7965 Aug, [facility] [address] [id number] [place] [address]- 0498 Aug, [facility] [address] [place] [address] 10 Aug, 2014 [facility] [address] [id number] [place] [address]- 6996 Aug, [facility] [address] [id number] [place] [address]- 2476 Aug, [facility] [address] [id number] [place] [address]- 0746 Aug, [facility] [address] [id number] [place] [address]- 9462 Aug, [facility] [address] [id number] [place] [address]- 8103 Aug, [facility] [address] [id number] [place] [address]- 0231 Aug, [facility] [address] [id number] [place] [address]- 5890 Aug, [facility] [place] [facility] [address] [id number] [place] [address]- 2037 Aug, [facility] [place] [facility] [address] [id number] [place] [address]- 3075 Aug, [facility] [place] [facility] [address] [id number] [place] [address]- 0491 Aug, [facility] [place] [facility] [address] [id number] [place] [address]- 4273 Aug, [facility] [address] [id number] [place] [address]- 1489 03 Aug, 2014 [facility] [place] [facility] [address] [id number] [place] [address]- 2906 Aug, [facility] [place] [facility] [address] [id number] [place] 7896 Aug, [facility] [place] [facility] [address] [id number] [place] [address]- 6976 Aug, [facility] [place] [facility] [address] [id number] [place] [address]- 8195 Aug, [facility] [place] [facility] [address] [id number] [place] [address]- 4058 Aug, [facility] [place] [facility] [address] [id number] [place] [address]- 3119 Aug, [facility] [place] [facility] [address] [id number] [place] [address]- 8994 Jul, [facility] [place] [facility] [address] [id number] [place] [address]- 0064 Jul, [facility] [place] [facility] [address] [id number] [place] [address]- 4544 Jul, [facility] [place] [facility] [address] [id number] [place] [address]- 0480 Jul, [facility] [place] [facility] [address] [id number] [place] [address]- 9810 Jul, [facility] [place] [facility] [address] [id number] [place] [address]- 0433 Jul, [facility] [place] [facility] [address] [id number] [place] [address]- 3244 Jul, [facility] [place] [facility] [address] [id number] [place] [address]- 0962 Jul, [facility] [place] [facility] [address] [id number] [place] [address]- 6054 Jul, [facility] [place] [facility] [address] [id number] [place] [address]- 9586 Jul, [facility] [place] [facility] [address] [id number] [place] [address]- 1297 Jun, [facility] [place] [facility] [address] [id number] [place] [address]- 5090 Jun, [facility] [place] [facility] [address] [id number] [place] [address]- 6720 Jun, [facility] [place] [facility] [address] [id number] [place] [address]- 0494 Jun, [facility] [place] [facility] [address] [id number] [place] [address]- 6666 Jun, [facility] [place] [facility] [address] [id number] [place] [address]- 4639 Jun, [facility] [place] [facility] [address] [id number] [place] [address]- 4452 Jun, [facility] [place] [facility] [address] [id number] [place] [address]- 7454 Jun, [facility] [place] [facility] [address] [id number] [place] [address]- 2110 Jun, [facility] [place] [facility] [address] [id number] [place] [address]- 0786 Jun, [facility] [place] [facility] [address] [id number] [place] [address]- 8911 29 May, 2014 [facility] [place] [facility] [address] [id number] [place] [address]- 9033 29 May, 2014 [facility] [place] [facility] [address] [id number] [place] [address]- 1396 May, [facility] [place] [facility] [address] [id number] [place] [address]- 5576 May, [facility] [place] [facility] [address] [id number] [place] [address]- 8745 17 May, 2013 [facility] [place] [facility] [address] [id number] [place] [address]- 3593 17 May, 2013 [facility] [place] [facility] [address] [id number] [place] [address]- 9676 15 May, 2013 [facility] [place] [facility] [address] [id number] [place] [address] 2546 15 May, 2013 [facility] [place] [facility] [address] [id number] [place] [address] 2546 15 May, 2013 [facility] [place] [facility] [address] [id number] [place] [address]- 3341 15 May, 2013 [facility] [place] [facility] [address] [id number] [place] [address]- 0791 10 May, 2013 [facility] [place] [facility] [address] [id number] [place] [address]- 6985 10 May, 2013 [facility] [place] [facility] [address] [id number] [place] [address]- 2265 09 May, 2013 [facility] [place] [facility] [address] [id number] [place] [address]- 2587 09 May, 2013 [facility] [place] [facility] [address] [id number] [place] [address]- 1872 04 May, 2014 [facility] [place] [facility] [address] [id number] [place] [address]- 7462 May, 2013 [facility] [place] [facility] [address] [id number] [place] [address]- 7973 Apr, [facility] [place] [facility] [address] [id number] [place] [address]- 3005 Apr, [facility] [place] [facility] [address] [id number] [place] [address]- 63[address] Apr, [facility] [place] [facility] [address] [id number] [place] [address] Apr, [facility] [place] [facility] [address] [id number] [place] [address] Apr, [facility] [place] [facility] [address] [id number] [place] [address] Apr, [facility] [place] [facility] [address] [id number] [place] [address] Apr, [facility] [place] [facility] [address] [id number] [place] [address] Apr, [facility] [place] [facility] [address] [id number] [place] [address] Apr, [facility] [place] [facility] [address] [id number] [place] [address] Apr, [facility] [place] [facility] [address] [id number] [place] [address] Apr, [facility] [place] [facility] [address] [id number] [place] [address] Apr, [facility] [place] [facility] [address] [id number] [place] [address] Apr, [facility] [place] [facility] [address] [id number] [place] [address] Apr, [facility] [place] [facility] [address] [id number] [place] [address] Apr, [facility] [place] [facility] [address] [id number] [place] [address] Mar, [facility] [place] [facility] [address] [id number] [place] [address] Mar, [facility] [place] [facility] [address] [id number] [place] [address]- [address] Mar, [facility] [place] [facility] [address] [id number] [place] [address]- [address] Mar, [facility] [place] [facility] [address] [id number] [place] [address] Mar, [facility] [place] [facility] [address] [id number] [place] [address] Mar, 2013 [facility] [place] [facility] [address] [id number] [place] [address] Mar, 2013 [facility] [place] [facility] [address] [id number] [place] [address] Mar, 2013 [facility] [place] [facility] [address] [id number] [place] [address]- [address] Mar, 2013 [facility] [place] [facility] [address] [id number] [place] [address]- [address] Mar, 2013 [facility] [place] [facility] [address] [id number] [place] [address]- [address] Mar, 2013 [facility] [place] [facility] [address] [id number] [place] [address]- [address] Mar, 2013 [facility] [place] [facility] [address] [id number] [place] [address] Mar, 2013 [facility] [place] [facility] [address] [id number] [place] [address] Mar, 2013 [facility] [place] [facility] [address] [id number] [place] [address] Mar, 2013 [facility] [place] [facility] [address] [id number] [place] [address] Mar, [facility] [place] [facility] [address] [id number] [place] [address] Mar, [facility] [place] [facility] [address] [id number] [place] [address] Mar, [facility] [place] [facility] [address] [id number] [place] [address] Feb, [facility] [place] [facility] [address] [id number] [place] [address] Feb, [facility] [place] [facility] [address] [id number] [place] [address] Feb, [facility] [place] [facility] [address] [id number] [place] [address] Feb, [facility] [place] [facility] [address] [id number] [place] [address] Feb, [facility] [place] [facility] [address] [id number] [place] [address] Feb, [facility] [place] [facility] [address] [id number] [place] [address] Feb, [facility] [place] [facility] [address] [id number] [place] [address] Feb, [facility] [place] [facility] [address] [id number] [place] [address] 279[address] Feb, [facility] [place] [facility] [address] [id number] [place] [address] Feb, [facility] [place] [facility] [address] [id number] [place] [address]- [address] Feb, [facility] [place] [facility] [address] [id number] [place] [address]- 40[address] Feb, [facility] [place] [facility] [address] [id number] [place] [address] Feb, [facility] [place] [facility] [address] [id number] [place] [address] Feb, [facility] [place] [facility] [address] [id number] [place] [address] January, [facility] [place] [facility] [address] [id number] [place] [address]- [address] January, [facility] [place] [facility] [address] [id number] [place] [address] January, [facility] [place] [facility] [address] [id number] [place] [address]- [address] January, [facility] [place] [facility] [address] [id number] [place] [address] January, [facility] [place] [facility] [address] [id number] [place] [address]- 7685 January, [facility] [place] [facility] [address] [id number] [place] [address] January, [facility] [place] [facility] [address] [id number] [place] [address] January, [facility] [place] [facility] [address] [id number] [place] [address] January, [facility] [place] [facility] [address] [id number] [place] [address] January, [facility] [place] [facility] [address] [id number] [place] [address] January, [facility] [place] [facility] [address] [id number] [place] [address] 8[address] January, [facility] [place] [facility] [address] [id number] [place] [address] 6[address] January, [facility] [place] [facility] [address] [id number] [place] [address] January, [facility] [place] [facility] [address] [id number] [place] [address] 2211 Dec, [facility] [place] [facility] [address] [id number] [place] [address] 8354 Dec, [facility] [place] [facility] [address] [id number] [place] [address] 5[address] Dec, [facility] [place] [facility] [address] [id number] [place] [address]- [address] Dec, [facility] [place] [facility] [address] [id number] [place] [address] 8[address] Dec, [facility] [place] [facility] [address] [id number] [place] [address]- 0372 Dec, [facility] [place] [facility] [address] [id number] [place] [address]- 5087 Dec, [facility] [place] [facility] [address] [id number] [place] [address]- 0217 Dec, [facility] [place] [facility] [address] [id number] [place] [address]- 9266 Dec, [facility] [place] [facility] [address] [id number] [place] [address]- 4210 Dec, [facility] [place] [facility] [address] [id number] [place] [address]- 6266 Nov, [facility] [place] [facility] [address] [id number] [place] [address]- 2006 Nov, [facility] [place] [facility] [address] [id number] [place] [address]- 9123 Nov, [facility] [place] [facility] [address] [id number] [place] [address]- 9031 Nov, [facility] [place] [facility] [address] [id number] [place] [address]- 0259 Nov, [facility] [place] [facility] [address] [id number] [place] [address]- 1991 Nov, [facility] [place] [facility] [address] [id number] [place] [address]- 2320 Nov, [facility] [place] [facility] [address] [id number] [address] Nov, [facility] [place] [facility] [address] [id number] [place] [address]- 5464 Nov, [facility] [place] [facility] [address] [id number] [place] [address]- 4589 Nov, [facility] [place] [facility] [address] [id number] [place] [address]- 6838 Oct, [facility] [place] [facility] [address] [id number] [place] [address]- 3112 Oct, [facility] [place] [facility] [address] [id number] [place] [address]- 7046 Oct, [facility] [place] [facility] [address] [id number] [place] [address]- 2546 Oct, [facility] [place] [facility] [address] [id number] [place] [address]- 0871 Oct, [facility] [place] [facility] [address] [id number] [place] [address]- 6187 Oct, [facility] [place] [facility] [address] [id number] [place] [address]- 6562 Oct, [facility] [place] [facility] [address] [facility] [id number] [place] [address]- 9331 Oct, [facility] [place] [facility] [address] [id number] [place] [address]- 0286 Oct, [facility] [place] [facility] [address] [id number] [place] [address]- 7632 Oct, [facility] [place] [facility] [address] [facility] [id number] [place] [address]- 3065 Oct, [facility] [place] [facility] [address] [facility] [id number] [place] [address]- 5729 Oct, [facility] [place] [facility] [address] [facility] [id number], [place] [address] Oct, [facility] [place] [facility] [address] [facility] [id number] [place] [address]- 8186 Oct, [facility] [place] [facility] [address] [id number] [place] [address]- 5395 Sep, [facility] [place] [facility] [address] [id number] [place] [address]- 1408 Sep, [facility] [place] [facility] [address] [facility] [id number] [address] 15 Sep, 2013 [facility] [place] [facility] [address] [id number] [place] [address]- 5511 15 Sep, 2013 [facility] [place] [facility] [address] [id number] [place] [address]- 9334 Sep, [facility] [place] [facility] [address] [id number] [place] [address]- 5344 Sep, [facility] [place] [facility] [address] [id number] [place] [address]- 1496 Sep, [facility] [place] [facility] [address] [id number] [place] [address]- 2211 Sep, [facility] [place] [facility] [address] [id number] [place] [address]- 1614 Sep, [facility] [place] [facility] [address] [id number] [place] [address]- 4824 Sep, [facility] [place] [facility] [address] [id number] [place] [address]- 8347 Aug, [facility] [place] [facility] [address] [id number] [place] [address]- 5558 Aug, [facility] [place] [facility] [address] [id number] [place] [address]- 4228 Jul, [facility] [place] [facility] [address] [id number], [place] [address] 8[address] Jul, [facility] [place] [facility] [address] [id number] [place] [address]- 5792 Jul, [facility] [place] [facility] [address] [id number] [place] [address]- 2770 Jul, [facility] [place] [facility] [address] [id number] [place] [address]- 1154 Jul, [facility] [place] [facility] [address] [id number] [place] [address]- 8976 Jul, [facility] [place] [facility] [address] [id number] [place] [address]- 4644 Jul, [facility] [address] [id number] [place] [address]- 5710 Jul, [facility] [place] [facility] [address] [id number] [place] [address]- 6871 Jul, [facility] [place] [facility] [address] [id number] [place] [address]- 0601 08 Jul, 2013 [facility] [place] [facility] [address] [id number] [place] [address]- 0792 Jul, [facility] [place] [facility] [address] [id number] [place] [address]- 1136 Jul, [facility] [place] [facility] [address] [id number] [place] [address]- 7989 Jul, [facility] [place] [facility] [address] [id number] [place] [address]- 2364 Jul, [facility] [address] [id number] [place] [address]- 3537 Jul, [facility] [place] [facility] [address] [id number] [place] [address]- 6177 Jul, [facility] [place] [facility] [address] [id number] [place] [address]- 0579 Jul, [facility] [place] [facility] [address] [id number] [place] [address]- 5342 Jul, [facility] [place] [facility] [address] [id number] [place] [address]- 3674 Jul, [facility] [place] [facility] [address] [id number] [place] [address]- 9273 Jun, [facility] [place] [facility] [address] [id number] [place] [address]- 1517 Jun, [facility] [place] [facility] [address] [id number] [place] [address]- 4116 Jun, [facility] [place] [facility] [address] [id number] [place] [address]- 7680 16 Jun, 2012 [facility] [place] [facility] [address] [id number] [place] [address]- 7265 16 Jun, 2012 [facility] [place] [facility] [address] [id number] [place] [address]- 5328 16 Jun, 2012 [facility] [place] [facility] [address] [id number] [place] [address]- 8153 Jun, 2012 [facility] [place] [facility] [address] [id number] [place] [address]- 6045 10 Jun, 2012 [facility] [place] [facility] [address] [id number] [place] [address]- 2788 Jun, [facility] [place] [facility] [address] [id number] [place] [address]- 5572 Jun, [facility] [place] [facility] [address] [id number] [place] [address]- 4153 Jun, [facility] [place] [facility] [address] [id number] [place] [address]- 4880 26 May, 2012 [facility] [place] [facility] [address] [id number], [place] [address]- 1788 25 Sep, 2012 [facility] [place] [facility] [address] [id number], [place] [address]- 0631 19 Sep, 2012 [facility] [place] [facility] [address] [id number][place] [address]- 9262 17 Sep, 2012 [facility] [place] [facility] [address] [id number] [place] [address]- 2543 11 Sep, 2012 [facility] [place] [facility] [address] [id number], [place] [address]- 6445 10 May, 2012 [facility] [place] [facility] [address] [id number], [place] [address]- 0537 09 May, 2012 [facility] [place] [facility] [address] [id number] [place] [address]- 3125 May, [facility] [address] [id number] [place] [address]- 0126 Apr, [facility] [place] [facility] [address] [id number] [place] [address]- 2048 Apr, [facility] [place] [facility] [address] [id number] [place] [address]- 1963 Apr, [facility] [place] [facility] [address] [id number] [place] [address]- 3176 Apr, [facility] [place] [facility] [address] [id number] [place] [address]- 2355 Apr, [facility] [place] [facility] [address] [id number] [place] [address]- 2078 Mar, [facility] [place] [facility] [address] [id number] [place] [address]- 8808 Mar, [facility] [place] [facility] [address] [id number] [place] [address]- 5935 Mar, [facility] [place] [facility] [address] [id number] [place] [address]- 3186 Mar, [facility] [place] [facility] [address] [id number] [place] [address]- 7107 Mar, [facility] [place] [facility] [address] [id number] [place] [address]- 6590 Mar, [facility] [place] [facility] [address] [id number] [place] [address]- 9670 Mar, [facility] [place] [facility] [address] [id number] [place] [address]- 4739 Mar, [facility] [place] [facility] [address] [id number] [place] [address]- 6025 Feb, [facility] [place] [facility] [address] [id number] [place] [address]- 0601 Feb, [facility] [place] [facility] [address] [id number] [place] [address]- 3252 January, [facility] [place] [facility] [address] [id number] [place] [address]- 5198 January, [facility] [place] [facility] [address] [id number] [place] [address]- 9836 Dec, [facility] [place] [facility] [address] [id number] [place] [address]- 2384 Dec, [facility] [place] [facility] [address] [id number] [place] [address]- 9497 Nov, [facility] [place] [facility] [address] [id number] [place] [address]- 9002 Nov, [facility] [place] [facility] [address] [facility] [id number] [place] [address]- 4558 Nov, [facility] [place] [facility] [address] [id number] [place] [address]- 2493 Nov, [facility] [place] [facility] [address] [id number] [place] [address]- 2066 Oct, [facility] [place] [facility] [address] [id number] [place] [address]- 7017 Oct, [facility] [place] [facility] [address] [facility] [id number] [place] [address]- 3078 Oct, [facility] [place] [facility] [address] [id number], [place] [address]- 1621 Oct, [facility] [place] [facility] [address] [id number] [place] [address]- 0872 16 Oct, 2012 [facility] [place] [facility] [address] [id number] [place] [address]- 4249 14 Oct, 2012 [facility] [place] [facility] [address] [facility] [id number] [place] [address] 08 Oct, 2012 [facility] [place] [facility] [address] [facility] [id number], [place] [address]- 8718 07 Oct, 2012 [facility] [address] [id number] [place] [address]- 0263 03 Oct, 2012 [facility] [address] [id number] [place] [address]- 1756 30 Sep, 2012 [facility] [address] [id number] [place] [address]- 3591 Sep, [facility] [address] [id number] [place] [address]- 4149 Sep, [facility] [address] [id number] [place] [address]- 2130 Sep, [facility] [address] [id number] [place] [address]- 6160 Sep, [facility] [address] [id number] [place] [address]- 9987 Sep, [facility] [address] [id number] [place] [address]- 8571 Sep, [facility] [address] [id number] [place] [address]- 1253 Sep, [facility] [address] [facility] [id number] [place] [address]- 2337 Aug, [facility] [address] [id number] [place] [address]- 5581 31 Aug, 2012 [facility] [address] [id number] [place] [address]- 9316 Aug, [facility] [address] [id number] [place] [address]- 3504 Aug, [facility] [address] [id number] [place] [address]- 6781 Aug, [facility] [address] [id number] [place] [address]- 1077 Aug, [facility] [place] [facility] [address] [id number] [place] [address]- 8179 Aug, [facility] [place] [facility] [address] [id number] [place] [address]- 6924 Aug, [facility] [place] [facility] [address] [id number] [place] [address]- 0609 Jul, [facility] [place] [facility] [address] [id number] [place] [address]- 2373 Jul, [facility] [place] [facility] [address] [id number] [place] [address]- 6388 Jul, [facility] [place] [facility] [address] [id number] [place] [address]- 5679 Jul, [facility] [place] [facility] [address] [id number] [place] [address]- 5511 Jul, [facility] [place] [facility] [address] [id number] [place] [address]- 9693 Jul, [facility] [place] [facility] [address] [id number] [place] [address]- 8120 Jun, [facility] [place] [facility] [address] [id number] [place] [address]- 4045 Jun, [facility] [place] [facility] [address] [id number] [place] [address]- 3540 Jun, [facility] [place] [facility] [address] [id number] [place] [address]- 4237 Jun, [facility] [place] [facility] [address] [id number] [place] [address]- 2904 Jun, [facility] [place] [facility] [address] [id number] [place] [address]- 3323 Jun, [facility] [place] [facility] [address] [id number] [place] [address]- 1784 Jun, [facility] [place] [facility] [address] [id number] [place] [address]- 2640 10 Jun, 2012 [facility] [place] [facility] [address] [id number] [place] [address]- 1812 10 Jun, 2012 [facility] [place] [facility] [address] [id number] [place] [address]- 5943 26 May, 2012 [facility] [place] [facility] [address] [id number] [place] [address]- 0292 24 May, 2012 [facility] [place] [facility] [address] [id number] [place] [address]- 4405 18 May, 2012 [facility] [place] [facility] [address] [id number] [place] [address]- 5501 Apr, [facility] [place] [facility] [address] [id number] [place] [address]- 5325 Apr, [facility] [place] [facility] [address] [id number] [place] [address]- 6922 Apr, [facility] [place] [facility] [address] [id number] [place] [address]- 6336 Apr, [facility] [place] [facility] [address] [id number] [place] [address]- 6106 Apr, [facility] [place] [facility] [address] [id number] [place] [address]- 9314 Apr, [facility] [place] [facility] [address] [id number] [place] [address]- 5097 Mar, [facility] [place] [facility] [address] [id number], [place] [address]- 8883 Mar, [facility] [place] [facility] [address] [id number] [place] [address]- 7765 Mar, [facility] [place] [facility] [address] [id number] [place] [address]- 7081 Mar, [facility] [place] [facility] [address] [id number] [place] [address]- 8827 Feb, [facility] [place] [facility] [address] [id number] [place] [address]- 0919 Feb, [facility] [address] [id number] [place] [address]- 0828 Feb, [facility] [address] [id number] [place] [address]- 8468 Feb, [facility] [address] [id number] [place] [address]- 6828 Feb, [facility] [address] [id number] [place] [address]- 0261 January, [facility] [address] [id number] [place] [address]- 9076 January, [facility] [address] [id number] [place] [address]- 7850 January, [facility] [address] [id number] [place] [address]- 4226 January, [facility] [address] [id number] [place] [address]- 9648 January, [facility] [address] [id number] [place] [address]- 1120 January, [facility] [address] [id number] [place] [address]- 8306 Dec, [facility] [address] [id number] [place] [address]- 5636 Dec, [facility] [address] [id number] [place] [address]- 0241 Dec, [facility] [place] [facility] [address] [id number] [place] [address]- 0665 Dec, [facility] [address] [id number] [id number] 7474 Dec, [facility] [address] [id number] [place] [address]- 5334 Nov, [facility] [place] [facility] [address] [id number] [place] [address]- 4821 14 Nov, 2011 [facility] [place] [facility] [address] [id number] [place] [address]- 9925 12 Nov, 2011 [facility] [place] [facility] [address] [id number] [place] [address]- 8977 07 Nov, 2011 [facility] [place] [facility] [address] [id number] [place] [address]- 5072 29 Oct, 2011 [facility] [place] [facility] [address] [id number] [place] [address]- 6582 28 Oct, 2011 [facility] [place] [facility] [address] [id number] [place] [address] 24 Oct, 2011 [facility] [place] [facility] [address] [id number] [place] [address] 13 Oct, 2011 [facility] [place] [facility] [address] [id number] [place] [address] 08 Oct, 2011 [facility] [place] [facility] [address] [id number] [place] [address] Sep, [facility] [place] [facility] [address] [id number] [place] [address] 30 Sep, 2011 [facility] [place] [facility] [address] [id number] [place] [address] Sep, [facility] [place] [facility] [address] [id number] [place] [address] Sep, [facility] [place] [facility] [address] [id number] [place] [address] Sep, [facility] [place] [facility] [address] [id number] [place] [address] Sep, [facility] [place] [facility] [address] [id number] [place] [address] Aug, [facility] [place] [facility] [address] [id number] [place] [address] Aug, [facility] [place] [facility] [address] [id number] [place] [address] Aug, [facility] [place] [facility] [address] [id number] [place] [address] Jul, [facility] [place] [facility] [address] [id number] [place] [address] Jul, [facility] [place] [facility] [address] [id number] [place] [address] Jul, [facility] [place] [facility] [address] [id number] [place] [address] Jul, [facility] [place] [facility] [address] [id number] [place] [address] Jun, [facility] [place] [facility] [address] [id number] [place] [address] Jun, [facility] [place] [facility] [address] [id number] [place] [address] Jun, [facility] [place] [facility] [address] [id number] [place] [address] Jun, [facility] [place] [facility] [address] [id number] [place] [address] Jun, [facility] [place] [facility] [address] [id number] [place] [address] Jun, [facility] [place] [facility] [address] [id number] [place] [address]385 Mar, [facility] [place] [facility] [address] [id number] [place] [address] Dec, [facility] [place] [facility] [address] [id number] [place] [address] Dec, [facility] [place] [facility] [address] [id number] [place] [address] Nov, [facility] [place] [facility] [address] [id number] [place] [address] 16 Nov, 2010 [facility] [address] [id number] [place] [address] 10 Sep, 2010 [facility] [place] [facility] [address] [id number] [place] [address] 2546 31 Aug, 2010 [facility] [place] [facility] [address] [id number] [place] [address]686 29 Aug, 2010 [facility] [place] [facility] [address] [id number] [place] [address] 254 29 Aug, 2010 [facility] [place] [facility] [address] [id number] [place] [address]27 29 Aug, 2010 [facility] [address] [id number] [place] [address]68 27 Aug, 2010 [facility] [address] [id number] [place] [address] 14 Aug, 2010 [facility] [address] [id number] [place] [address] Aug, [facility] [place] [facility] [address] [id number] [place] [address] 08 Aug, 2010 [facility] [place] [facility] [address] [id number] [place] [address] 07 Aug, 2010 [facility] [place] [facility] [address] [id number] [place] [address] 2545 Aug, [facility] [place] [facility] [address] [id number] [place] [address] 2548 Aug, [facility] [place] [facility] [address] [id number] [place] [address] 2546 Aug, [facility] [place] [facility] [address] [id number] [place] [address] 30 Jul, 2010 [facility] [place] [facility] [address] [id number] [address] Jul, [facility] [place] [facility] [address] [id number] [place] [address] 30 Jul, 2010 [facility] [place] [facility] [address] [id number] [place] [address] 4[address] Jul, [facility] [place] [facility] [address] [id number] [place] [address]- 7[address] Jul, [facility] [place] [facility] [address] [id number], [place] [address] Jul, [facility] [place] [facility] [address] [id number] [place] [address] 30[address] 24 Jun, 2010 [facility] [place] [facility] [address] [id number] [place] [address] 74[address] Jun, [facility] [place] [facility] [address] [id number] [place] [address]- 04[address] Jun, [facility] [place] [facility] [address] [id number], [place] [address] Jun, [facility] [place] [facility] [address] [id number], [place] [address] 16 Apr, 2010 [facility] [place] [facility] [address] [id number], [place] [address] Mar, [facility] [place] [facility] [address] [id number], [place] [address] Feb, [facility] [place] [facility] [address] [id number], [place] [address] January, [facility] [place] [facility] [address] [id number] [place] [address] 15 Dec, 2009 [facility] [place] [facility] [address] [id number], [place] [address] Nov, [facility] [place] [facility] [address] [id number] [place] [address] 47[address] Aug, [facility] [place] [facility] [address] [id number] [place] [address]- 58[address] Aug, [facility] [address] [facility] [id number] [place] [address] Aug, [facility] [address] [facility] [id number] [place] [address] Jul, [facility] [address] [facility] [id number] [place] [address]- [address] Jul, [facility] [address] [id number] [place] [address]- 6981 Jul, [facility] [address] [facility] [id number] [place] [address], [place] [address] Jun, [facility] [address] [facility] [id number] [place] [address] Jun, [facility] [address] [facility] [id number] [place] [address]- 0519 Jun, [facility] [address] [facility] [id number], [place] [address] Jun, [facility] [facility] [address] [facility] [id number] [address] Jun, [facility] [address] [facility] [id number], [place] [address] Jun, [facility] [address] [facility] [id number], [place] [address] Apr, [facility] [address] [facility] [id number], [place] [address] Apr, [facility] [address] [facility] [id number], [place] [address] Feb, [facility] [address] [facility] [id number], [place] [address] January, [facility] [address] [facility] [id number], [place] [address] Dec, IMMUNIZATIONS No Known Immunizations SOCIAL HISTORY Never Assessed REASON FOR VISIT controlled med refills PLAN OF CARE VITAL SIGNS MEDICATIONS Medication Instructions Dosage Frequency Start Date End Date Duration Status Ambien 10 mg Orally at bedtime as needed for sleep 1 tablet Nov, 30 days Active Valium 5 mg Orally [...] obesity Medical History skin cancer-basal cell R religious (removed) Medical History Arthritis Medical History degenerative [...] EGD ([place]) 2009 Surgical History colonoscopy 2009 ([facility] 2013 ([place]) Surgical History heart 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 04/2014 Surgical History carotid US 05/2014 Surgical History resection of skin cancer from Right religious Surgical History Biopsy of Lung Bilateral/Left lung lymph node 09/2016 Surgical History Bone Marrow Biopsy Surgical History port in the right chest wall 12/2016 Hospitalization History [facility] low potassium, low magnesium, chest painina 01/2015 Hospitalization History inability to urinate 09/16/[address] [facility] early Hospitalization History hyperkalemia 10/2017 Hospitalization History fluid in lung
--- OUTSIDE RECORDS SUMMARY | 2018-08-08 13:57 | XMS REPORT ---
Author Author NOEMI WASHBURN Organization [facility] Address [address] [place] [address] Care Team Providers Care Riding Instructor Name Role Phone NOEIM WASHBURN Unavailable PROBLEMS Type Condition ICD9-CM Code SAC47-HO Code Onset Dates Condition Status SNOMED Code Problem Chronic lymphocytic leukemia C91.10 Active 22874363 Problem Lymphocytosis D72.820 Active 69127890 Problem Eye exam abnormal R93.8 Active 038053083 Problem Eustachian tube dysfunction, unspecified laterality H69.80 Active 65258340 Problem Essential hypertension I10 Active 23772347 Problem Dysuria R30.0 Active 50649534 Problem Diabetic polyneuropathy associated with type 2 diabetes mellitus E11.42 Active 75337647 Problem Cough R05 Active 36367682 Problem Polyneuropathy associated with underlying disease G63 Active 986750658 Problem Retinal edema H35.81 Active 6969882 Problem Bilateral primary osteoarthritis of knee M17.0 Active 855686827 Problem Primary osteoarthritis of right knee M17.11 Active 139848237163134 Problem Pure hypercholesterolemia E78.00 Active 610790913 Problem DM neuro manif type II E11.49 Active 97316574 Problem Benign prostatic hyperplasia with lower urinary tract symptoms, unspecified morphology N40.1 Active 228429515 Problem Hypokalemia E87.6 Active 38662639 Problem 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 Active 997029745 Problem Anemia of chronic illness D63.8 Active 686817147 Problem Bipolar disorder, in partial remission, most recent episode depressed F31.75 Active 68354149 Problem Falling R29.6 Active 659039647 Problem Leukocytosis D72.829 Active 982460480 Problem Reactive airway disease J45.909 Active 274908852616 Problem Diabetes E11.9 Active 89510752 Problem Chronic pain G89.29 Active 88596177 Problem Anxiety F41.9 Active 55181486 Problem Morbid obesity E66.01 Active 485338023 Problem Bipolar I disorder, most recent episode (or current) mixed, moderate F31.62 Active 52708528 Problem Insomnia, unspecified type G47.00 Active [id number] ALLERGIES No Information ENCOUNTERS Encounter Location Date Diagnosis [place] [id number] [place] [address] 18941- 0721 Jun, [place] [id number] [place] [address] 32647- 0895 Apr, [place] [address] 29654- 0747 Apr, Chronic pain G89.29 [place] [address] 10309- 4913 Apr, Primary osteoarthritis of right knee M17.11 [place] [address] 13380- 7502 Mar, [place] [address] 07593- 9088 Mar, BMI 50.0-59.9, adult Z68.43 and Bipolar disorder, in partial remission, most recent episode depressed F31.75 [place] [address] 41247- 4730 Mar, Diabetes E11.9 ; Pure hypercholesterolemia E78.00 ; Essential hypertension I10 ; Nausea with vomiting, unspecified R11.2 and Headache, unspecified headache type R51 [place] [id number] [place] [address] 74060- 5233 Mar, Bipolar I disorder, most recent episode (or current) mixed, moderate F31.62 [place] [address] 12683- 1730 Mar, Bipolar I disorder, most recent episode (or current) mixed, moderate F31.62 [place] [id number] [place] [address] 68911- 0782 Mar, Chronic pain G89.29 [place] [address] [place] [address] 7261 Mar, Bipolar I disorder, most recent episode (or current) mixed, moderate F31.62 [facility] [id number] [place] [address] 57044- 6223 Feb, Bipolar I disorder, most recent episode (or current) mixed, moderate F31.62 [facility] [id number] [place] [address] 92629- 7958 Feb, Chronic pain G89.29 [facility] [address] [place] [address] 02167- 4201 Feb, Decubitus ulcer of right foot, stage 3 L89.893 and BMI 50.0- 59.9, adult Z68.43 [place] [address] [place] [address] 89338- 5356 Feb, Bipolar I disorder, most recent episode (or current) mixed, moderate F31.62 [facility] [address] [address]- 3134 Feb, [facility] [id number] [place] [address] 68869- 4022 January, [facility] [address] [place] [address] 52024- 1111 January, Chronic pain G89.29 [facility] [address] [address]- 9976 January, Bipolar I disorder, most recent episode (or current) mixed, moderate F31.62 [facility] [address] [address]- 0138 January, Bipolar I disorder, most recent episode (or current) mixed, moderate F31.62 [facility] [address] [address]- 8371 Dec, Bipolar I disorder, most recent episode (or current) mixed, moderate F31.62 and BMI 50.0-59.9, adult Z68.43 [place] [id number] [place] [address] 48960- 0906 Dec, Bipolar I disorder, most recent episode (or current) mixed, moderate F31.62 [place] [id number] [place] [address] 48733- 9211 Dec, Chronic pain G89.29 [place] [address] 261716- 6400 Dec, DM neuro manif type II E11.49 ; Right flank pain R10.9 ; detention 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 Z79.891 ; Encounter for medication monitoring Z51.81 and BMI 50.0-59.9, adult Z68.43 [place] [id number] [place] [address] 17365- 2515 Dec, Bipolar I disorder, most recent episode (or current) mixed, moderate F31.62 [place] [id number] [place] [address] 00565- 3804 Nov, Bipolar I disorder, most recent episode (or current) mixed, moderate F31.62 [place] [id number] [place] [address] 21757- 0655 Nov, Chronic pain G89.29 [place] [id number] [place] [address] 57306- 2826 Nov, Bipolar I disorder, most recent episode (or current) mixed, moderate F31.62 [place] [id number] [place] [address] 89517- 5190 Nov, Hypokalemia E87.6 [place] [address] 69146- 2307 Nov, Bipolar I disorder, most recent episode (or current) mixed, moderate F31.62 [place] [id number] [place] [address] 06228- 9803 Oct, Chronic pain G89.29 [place] [id number] [place] [address] 20495- 0129 Oct, BMI 50.0-59.9, adult Z68.43 and Bipolar I disorder, most recent episode (or current) mixed, moderate F31.62 [facility] [id number] [place] [address] 33755- 6360 Oct, Bipolar I disorder, most recent episode (or current) mixed, moderate F31.62 [place] [address] 87325- 7486 Oct, [place] [address] 94432- 1382 Oct, Hypokalemia E87.6 [place] [id number] [place] [address] 60165- 8860 Oct, DM neuro manif type II E11.49 [place] [address] 14453- 2841 Oct, Bipolar I disorder, most recent episode (or current) mixed, moderate F31.62 [place] [id number] [place] [address] 04848- 9944 Oct, Bipolar I disorder, most recent episode (or current) mixed, moderate F31.62 [place] [id number] [place] [address] 78554- 2485 14 Oct, 2017 Hyperkalemia E87.5 ; Falling R29.6 ; BMI 50.0-59.9, adult Z68.43 and Acute left ankle pain M25.572 [place] [id number] [place] [address] 97528- 4157 Oct, DM neuro manif type II E11.49 [place] [id number] [place] [address] 92933- 8763 Oct, [facility] [address] 65181- 6215 Sep, Chronic pain G89.29 [place] [id number] [place] [address] 29180- 4090 Sep, [place] [id number] [place] [address] 38092- 0438 Sep, Bilateral primary osteoarthritis of knee M17.[address] 48229- 4417 Sep, Generalized edema R60.1 [place] [id number] [place] [address] 29924- 1451 Sep, Bipolar I disorder, most recent episode (or current) mixed, moderate F31.62 [place] [id number] [place] [address] 45201- 1476 Sep, Hypoxia R09.02 ; Other hypervolemia E87.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 ; Anemia of chronic illness D63.8 and BMI 50.0- 59.9, adult Z68.43 [place] [id number] [place] [address] 28356- 1995 Sep, [place] [id number] [place] [address] 06914- 2378 Sep, Bipolar I disorder, most recent episode (or current) mixed, moderate F31.62 [place] [id number] [place] [address] 71071- 1812 Aug, Chronic pain G89.29 [place] [id number] [place] [address] 36602- 7491 Aug, Generalized edema R60.1 [place] [id number] [place] [address] 04006- 5398 Aug, [place] [address] 01240- 3962 Aug, [facility] [address] [address]- 1139 14 Aug, 2017 Bipolar I disorder, most recent episode (or current) mixed, moderate F31.62 [facility] [address] [address]- 0110 Aug, Bipolar I disorder, most recent episode (or current) mixed, moderate F31.62 [facility] [id number] [place] [address] 30849- 2284 04 Aug, 2017 Chronic pain G89.29 [place] [id number] [place] [address] 96715- 8025 30 Jul, 2017 Bipolar I disorder, most recent episode (or current) mixed, moderate F31.62 [place] [id number] [place] [address] 79450- 4116 Jul, Bipolar I disorder, most recent episode (or current) mixed, moderate F31.62 and BMI 60.0-69.9, adult Z68.44 [place] [id number] [place] [address] 33750- 9759 16 Jul, 2017 Bipolar I disorder, most recent episode (or current) mixed, moderate F31.62 [facility] [address] [place] [address] 98383- 0742 06 Jul, 2017 Chronic pain G89.29 [facility] [id number] [place] [address] 32273- 8038 Jul, Bipolar I disorder, most recent episode (or current) mixed, moderate F31.62 [place] [id number] [place] [address] 43037- 2479 Jun, Polyneuropathy associated with underlying disease G63 and Diabetes E11.9 [facility] [id number] [place] [address] 84724- 6916 16 Jun, 2017 Bipolar I disorder, most recent episode (or current) mixed, moderate F31.62 [place] [address] [address]- 2576 09 Jun, 2017 Chronic pain G89.29 [facility] [id number] [place] [address] 013869- 0866 27 May, 2017 Bipolar I disorder, most recent episode (or current) mixed, moderate F31.62 [facility] [id number] [place] [address] 45861- 2198 21 May, 2017 Bipolar I disorder, most recent episode (or current) mixed, moderate F31.62 [facility] [id number] [place] [address] 48670- 3223 20 May, 2017 Diabetic polyneuropathy associated with type 2 diabetes mellitus E11.42 [facility] [id number] [place] [address] 19792- 4425 18 May, 2017 Bipolar I disorder, most recent episode (or current) mixed, moderate F31.62 [facility] [id number] [place] [address] 33972- 6828 13 May, 2017 Bipolar I disorder, most recent episode (or current) mixed, moderate F31.62 [facility] [id number] [place] [address] 37137- 5836 12 May, 2017 Chronic pain G89.29 [facility] [address] [place] [address] 65028- 3842 Apr, Bipolar I disorder, most recent episode (or current) mixed, moderate F31.62 [facility] [address] [place] [address] 44606- 9514 Apr, [facility] [id number] [place] [address] 40726- 5040 Apr, Chronic pain G89.29 and DM neuro manif type II E11.49 [facility] [id number] [place] [address] 76677- 5248 Apr, [facility] [id number] [place] [address] 41997- 1396 Apr, Bipolar I disorder, most recent episode (or current) mixed, moderate F31.62 [facility] [address] [place] [address] 89787- 9296 Apr, Chronic pain G89.29 [facility] [address] [place] [address] 37667- 9346 Apr, Iliotibial band syndrome, left M76.32 [facility] [id number] [place] [address] 069314- 8506 Apr, Bipolar I disorder, most recent episode (or current) mixed, moderate F31.62 [facility] [id number] [place] [address] 59125- 1273 Mar, Bipolar I disorder, most recent episode (or current) mixed, moderate F31.62 [facility] [id number] [place] [address] 63460- 2261 Mar, Bipolar I disorder, most recent episode (or current) mixed, moderate F31.62 [facility] [address] [place] [address] 88920- 5876 Mar, [facility] [id number] [place] [address] 72071- 3228 Mar, Bipolar I disorder, most recent episode (or current) mixed, moderate F31.62 [facility] [address] [place] [address] 98731- 1226 Mar, Chronic pain G89.29 [facility] [address] [place] [address] 35986- 4672 Mar, Bipolar I disorder, most recent episode (or current) mixed, moderate F31.62 [facility] [address] [place] [address] 88894- 3456 Mar, Bipolar I disorder, most recent episode (or current) mixed, moderate F31.62 [facility] [address] [place] [address] 59815- 6511 Mar, Acute pain of left knee M25.562 ; Left hip pain M25.552 ; Generalized edema R60.1 and Tongue swelling R22.0 [facility] [id number] [place] [address] 16986- 7887 Mar, [facility] [id number] [place] [address] 75799- 0665 Feb, Chronic pain G89.29 [facility] [id number] [place] [address] 78426- 3464 Feb, Diabetes E11.9 [place] [address] 84759- 4068 January, Chronic pain G89.29 [facility] [id number] [place] [address] 67211- 9368 January, [place] [id number] [place] [address] 86095- 2019 January, Bipolar I disorder, most recent episode (or current) mixed, moderate F31.62 [place] [address] [place] [address] 71652- 9516 Dec, Bipolar I disorder, most recent episode (or current) mixed, moderate F31.62 [place] [address] [place] [address] 01896- 2691 Dec, Chronic pain G89.29 [facility] [id number] [place] [address] 71983- 5750 Dec, Bipolar I disorder, most recent episode (or current) mixed, moderate F31.62 [place] [address] [place] [address] 08570- 9927 Dec, Diabetes E11.9 ; Essential hypertension I10 ; Chronic pain G89.29 and Morbid obesity E66.01 [facility] [id number] [place] [address] 90172- 8352 Dec, [facility] [address] [place] [address]- 6746 Dec, Bipolar I disorder, most recent episode (or current) mixed, moderate F31.62 [facility] [address] [address] 2546 Dec, Bipolar I disorder, most recent episode (or current) mixed, moderate F31.62 [facility] [address] [address]- 4696 Nov, Chronic pain G89.29 [facility] [address] [address] 2546 Nov, Bipolar I disorder, most recent episode (or current) mixed, moderate F31.62 [facility] [address] [address]- 5976 Nov, [facility] [address] [address]- 1006 Nov, Bipolar I disorder, most recent episode (or current) mixed, moderate F31.62 [facility] [address] [address]- 7816 Nov, Bipolar I disorder, most recent episode (or current) mixed, moderate F31.62 [facility] [address] [address]- 4126 Nov, [facility] [address] [address]- 5636 Nov, [facility] [address] [address] 2546 Nov, [facility] [address] [address]- 7626 Oct, Chronic pain G89.29 [facility] [address] [address]- 9176 Oct, Bipolar I disorder, most recent episode (or current) mixed, moderate F31.62 [facility] [id number] [place] [address] 11685- 1305 Oct, [facility] [id number] [place] [address] 35035- 6159 Oct, Chronic pain G89.29 ; Diabetes E11.9 ; Anxiety F41.9 and 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 [facility] [id number] [place] [address] 59989- 3383 Oct, [facility] [id number] [place] [address] 88356- 3376 Oct, Diabetes E11.9 [facility] [id number] [place] [address] 57124- 5555 Oct, Bipolar I disorder, most recent episode (or current) mixed, moderate F31.62 [facility] [id number] [place] [address] 76167- 3778 Sep, Chronic pain G89.29 [facility] [id number] [place] [address] 39513- 2161 Sep, Chronic pain G89.29 [facility] [id number] [place] [address] 36171- 9390 Aug, Chronic pain G89.29 [facility] [id number] [place] [address] 34616- 1897 Jul, [facility] [id number] [place] [address] 82633- 1753 Jul, Diabetes E11.9 [facility] [address] [place] [address] 43884- 3604 Jul, Chronic pain G89.29 [facility] [id number] [place] [address] 86753- 1581 Jul, Bipolar I disorder, most recent episode (or current) mixed, moderate F31.62 [facility] [id number] [place] [address] 00679- 9687 Jun, Bipolar I disorder, most recent episode (or current) mixed, moderate F31.62 [place] [address] [place] [address] 28554- 1780 Jun, [facility] [address] [place] [address] 55510- 0300 Jun, Bipolar I disorder, most recent episode (or current) mixed, moderate F31.62 [place] [id number] [place] [address] 48701- 1114 May, Insomnia, unspecified type G47.00 [place] [address] 37909- 8016 May, Bipolar I disorder, most recent episode (or current) mixed, moderate F31.62 [place] [address] 45810- 4949 May, [place] [address] 53854- 3904 May, Bipolar I disorder, most recent episode (or current) mixed, moderate F31.62 [facility] [id number] [place] [address] 96782- 5829 May, Diabetes E11.9 and Essential hypertension I10 [place] [id number] [place] [address] 73762- 9288 Apr, Chronic pain G89.29 [place] [address] 63768- 3412 Apr, Bipolar I disorder, most recent episode (or current) mixed, moderate F31.62 [place] [id number] [place] [address] 93195- 2914 Apr, [place] [id number] [place] [address] 63121- 2291 Apr, [place] [address] 57147- 9058 Mar, Chronic pain G89.29 ; Headache, unspecified headache type R51 ; Neuropathy G62.9 ; Pain of right hip joint M25.551 and Essential hypertension I10 [facility] [id number] [place] [address] 00067- 9729 Mar, Chronic pain G89.29 [place] [id number] [place] [address] 40729- 9429 Mar, Bipolar I disorder, most recent episode (or current) mixed, moderate F31.62 [place] [address] 98376- 6407 Feb, Bipolar I disorder, most recent episode (or current) mixed, moderate F31.62 and Insomnia, unspecified type G47.00 [place] [address] 75856- 2368 Feb, Chronic pain G89.29 [place] [address] 14943- 7174 Feb, Bipolar I disorder, most recent episode (or current) mixed, moderate F31.62 [facility] [address] [place] [address] 24962- 0590 January, Bipolar I disorder, most recent episode (or current) mixed, moderate F31.62 [facility] [place] [id number] [place] [address] 06637- 2233 January, Chronic pain G89.29 [place] [address] 72623- 9144 January, Chronic pain G89.29 and Essential hypertension I10 [place] [address] 52601- 0812 January, Bipolar I disorder, most recent episode (or current) mixed, moderate F31.62 [place] [id number] [place] [address] 00006- 2107 Dec, [place] [address] [address]- 3676 Dec, [facility] [id number] [place] [address] 25170- 4512 Dec, [facility] [address] [address]- 1757 Dec, [facility] [id number] [place] [address]- [address] Nov, Reactive airway disease J45.909 [facility] [id number] [place] [id number]- 9284 Nov, [facility] [id number] [place] [address]- [id number] Nov, [facility] [id number] [place] [id number]- 3244 Nov, [facility] [id number] [place] [id number]- [address] Nov, [facility] [id number] [place] [address] 22837- 3315 Nov, Onychomycosis B35.1 ; [place] M20.40 ; [place] or callus L84 and DM neuro manif type II E11.49 [facility] [id number] [place] [address]408- 3385 Nov, Chronic pain G89.29 ; Leukocytosis D72.829 and Diabetes E11.9 [facility] [address] [address] Nov, [facility] [address] [id number] [place] [address] 72940- 1213 Oct, Bronchitis J40 [facility] [id number] [place] [address] 10076- 6393 Oct, [facility] [id number] [place] [address] 15532- 4823 Oct, [facility] [id number] [place] [address] 79761- 7782 Oct, Mastoiditis, unspecified laterality H70.90 and Type 2 diabetes mellitus with complication E11.8 [facility] [id number] [place] [address] 85247- 0183 Sep, [facility] [address] 88156- 1158 Sep, Dysuria R30.0 ; Cough R05 ; Benign prostatic hyperplasia with lower urinary tract symptoms, unspecified morphology N40.1 ; Hypokalemia E87.6 and Eustachian tube dysfunction, unspecified laterality H69.80 [facility] [facility] [id number] [place] [address] 53264- 9735 Sep, Moderate mixed bipolar I disorder F31.62 [facility] [facility] [address] 68744- 9470 Sep, Hypokalemia E87.6 [facility] [facility] [id number] [place] [address] 35631- 3136 Sep, [facility] [facility] [id number] [place] [address] 32929- 8465 Sep, Upper respiratory tract infection, unspecified type J06.9 [facility] [facility] [id number] [place] [address] 63808- 6961 Aug, [facility] [id number] [place] [address] 03843- 6798 Aug, Dysuria R30.0 [facility] [address] 53406- 9352 Aug, [facility] [id number] [place] [address] 47614- 0617 Jul, [facility] [id number] [place] [address] 24840- 5655 Jul, [facility] [address] [address]- 4491 Jul, [facility] [address] [address]- 7873 Jul, [facility] [address] [address]- 1802 Jun, [facility] [id number] [place] [address] 112242- 2383 Jun, [facility] [address] [address]- 9613 Jun, [facility] [id number] [place] [address] 77805- 1179 May, [facility] [id number] [place] [address] 93730- 8019 May, Bipolar I disorder, most recent episode (or current) mixed, moderate 296.62 [facility] [address] [address]- 3926 May, [facility] [id number] [place] [address] 16611- 4069 May, Bipolar I disorder, most recent episode (or current) mixed, moderate 296.62 and Major depressive disorder, recurrent episode, severe, specified as with psychotic behavior 296.34 [facility] [address] [address]- 7641 May, Bipolar I disorder, most recent episode (or current) mixed, moderate 296.62 [facility] [address] [address]- 0849 May, [facility] [address] [address] 6575 Apr, [facility] [address] [address]- 6068 Apr, [facility] [id number] [place] [address] 18087- 5905 Apr, Unspecified disorder of kidney and ureter 593.9 and Diabetes mellitus type 2, uncontrolled 250.02 [facility] [id number] [place] [address] 29425- 5979 Apr, [facility] [id number] [place] [address] 70360- 6763 Apr, [facility] [id number] [place] [address] 31103- 5790 Apr, [facility] [id number] [place] [address] 18440- 8142 Apr, [facility] [id number] [place] [address] 75092- 1041 Apr, Diabetes mellitus type II, uncontrolled 250.02 [facility] [id number] [place] [address] 61194- 6426 Apr, [facility] [id number] [place] [address] 10532- 5459 Mar, [facility] [id number] [place] [address] 17499- 4505 Mar, [facility] [id number] [place] [address] 20774- 7265 Mar, [facility] [id number] [place] [address] 45545- 9984 Mar, Major depressive disorder, recurrent episode, severe, specified as with psychotic behavior 296.34 and Bipolar I disorder, most recent episode (or current) mixed, moderate 296.62 [facility] [id number] [place] [address] 07280- 0139 Mar, Diabetes 250.00 ; Anuria 788.5 ; Nausea and vomiting 787.01 and Diarrhea 787.91 [facility] [id number] [place] [address] 15268- 7367 Mar, Diabetes 250.00 [facility] [address] [address]- 8172 Mar, [facility] [address] [place] [address] 12347- 1151 Mar, Diabetes 250.00 [facility] [address] [address]- 2028 Mar, [facility] [id number] [place] [address] 13986- 0307 Mar, [facility] [address] [place] [address] 89718- 1072 Mar, [facility] [id number] [place] [address] 01980- 1426 Mar, [facility] [address] [place] [address] 80633- 8346 Mar, Bipolar I disorder, most recent episode (or current) mixed, moderate 296.62 and Major depressive disorder, recurrent episode, severe, specified as with psychotic behavior 296.34 [facility] [address] [place] [address] 92518- 4608 Mar, Magnesium deficiency 275.2 ; Hypokalemia 276.8 ; Nausea & vomiting 787.01 and Diabetes mellitus type 2, uncontrolled 250.02 [facility] [address] [address]- 6716 Feb, [facility] [id number] [place] [address] 48428- 3593 Feb, Bipolar I disorder, most recent episode (or current) mixed, moderate 296.62 [facility] [address] [place] [address] 58231- 5216 Feb, Nausea and vomiting 787.01 ; Left elbow pain 719.42 ; Anuria 788.5 and Diabetes 250.00 [facility] [address] [address]- 5432 Feb, [facility] [address] [address]- 8025 Feb, Hypopotassemia 276.8 and Hypokalemia 276.8 [facility] [id number] [place] [address] 53825- 4459 Feb, Hypopotassemia 276.8 and Hypokalemia 276.8 [facility] [id number] [place] [address] 55609- 3087 Feb, Seborrheic keratoses 702.19 [facility] [id number] [place] [address] 30401- 0727 Feb, Hypopotassemia 276.8 and Low magnesium levels 275.2 [facility] [address] [place] [address] 64037- 9815 January, [facility] [id number] [place] [address] 85618- 2195 January, [facility] [id number] [place] [address] 78502- 5496 January, [facility] [id number] [place] [address] 12886- 0905 January, Scalp lesion 709.9 [facility] [id number] [place] [address] 24831- 2003 January, [facility] [address] [place] [address] 13262- 2974 Dec, Tear of medial cartilage or meniscus of knee, current 836.0 and 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 [facility] [address] [address]- 7573 Dec, [facility] [id number] [place] [address] 09966- 9861 Dec, [facility] [address] [address]- 0516 Dec, Squamous cell carcinoma, 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 [facility] [place] [facility] [address] [id number] [place] [address]- 1958 14 Dec, 2014 [facility] [place] [facility] [address] [id number] [place] [address]- 3466 Dec, [facility] [place] [facility] [address] [id number] [place] [address]- 0607 Nov, [facility] [place] [facility] [address] [id number] [place] [address]- 6996 Nov, [facility] [place] [facility] [address] [id number] [place] [address]- 4283 Nov, [facility] [place] [facility] [address] [id number] [place] [address]- 1099 Nov, [facility] [place] [facility] [address] [facility] [id number] [place] [address]- 0777 Nov, [facility] [place] [facility] [address] [facility] [id number] [place] [address]- 0700 Nov, [facility] [place] [facility] [address] [facility] [id number] [place] [address]- 4046 Nov, [facility] [place] [facility] [address] [facility] [id number] [place] [address]- 1751 Nov, [facility] [place] [facility] [address] [facility] [id number] [place] [address]- 2370 Nov, [facility] [place] [facility] [address] [facility] [id number] [place] [address]- 7018 Nov, [facility] [place] [facility] [address] [facility] [id number] [place] [address]- 7583 Nov, [facility] [place] [facility] [address] [facility] [id number] [place] [address]- 6231 Nov, [facility] [place] [facility] [address] [facility] [id number] [place] [address]- 2925 Oct, [facility] [place] [facility] [address] [facility] [id number] [place] [address]- 1601 Oct, 2014 [facility] [place] [facility] [address] [id number] [place] [address]- 6018 Oct, 2014 [facility] [place] [facility] [address] [facility] [id number] [place] [address]- 2686 Oct, 2014 [facility] [place] [facility] [address] [facility] [id number] [place] [address]- 5236 Oct, 2014 [facility] [place] [facility] [address] [facility] [id number] [place] [address]- 4515 Oct, 2014 [facility] [place] [facility] [address] [facility] [id number] [place] [address]- 7510 Oct, 2014 [facility] [place] [facility] [id number] [place] [address]- 6600 Oct, 2014 [facility] [place] [facility] [address] [place] [address]- 9649 Oct, [facility] [place] [facility] [address] [facility] [id number] [place] [address]- 4651 Sep, [facility] [place] [facility] [id number] [place] [address]- 3747 Sep, [facility] [place] [facility] [id number] [address]- 3858 Sep, [facility] [place] [facility] [id number] [address]- 4902 Sep, [facility] [place] [facility] [address] [facility] [id number] [place] [address]- 0946 Sep, [facility] [place] [facility] [address] [facility] [id number] [place] [address]- 1402 Sep, [facility] [place] [facility] [address] [facility] [id number] [place] [address]- 7224 Sep, [facility] [place] [facility] [address] [facility] [id number] [place] [address]- 5517 Sep, [facility] [place] [facility] [address] [id number] [place] [address]- 0347 Sep, [facility] [place] [facility] [address] [id number] [place] [address]- 9561 Sep, [facility] [place] [facility] [address] [id number] [place] [address]- 0970 Sep, [facility] [place] [facility] [address] [id number] [place] [address]- 5487 Sep, [facility] [place] [facility] [address] [id number] [place] [address]- 0959 Sep, [facility] [place] [facility] [address] [id number] [place] [address]- 9406 Sep, [facility] [place] [facility] [address] [id number] [place] [address]- 0496 Sep, [facility] [place] [facility] [address] [id number] [place] [address]- 7396 Sep, [facility] [place] [facility] [address] [id number] [place] [address]- 0888 Aug, [facility] [place] [facility] [address] [id number] [place] [address]- 0304 Aug, [facility] [place] [facility] [address] [id number] [place] [address]- 8978 Aug, [facility] [place] [facility] [address] [id number] [place] [address]- 1252 31 Aug, 2014 [facility] [place] [facility] [address] [id number] [place] [address]- 9100 31 Aug, 2014 [facility] [place] [facility] [address] [id number] [place] [address]- 2182 31 Aug, 2014 [facility] [place] [facility] [address] [id number] [place] [address]- 2470 17 Aug, 2014 [facility] [place] [facility] [address] [id number] [place] [address]- 7434 Aug, [facility] [address] [id number] [place] [address]- 1096 Aug, [facility] [address] [id number] [place] [address]- 8426 Aug, [facility] [address] [id number] [place] [address]- 6905 Aug, [facility] [address] [place] [address] Aug, [facility] [address] [id number] [place] [address]- 1066 Aug, [facility] [address] [id number] [place] [address]- 2719 Aug, [facility] [address] [id number] [place] [address]- 4809 Aug, [facility] [address] [id number] [place] [address]- 7176 Aug, [facility] [address] [id number] [place] [address]- 1311 Aug, [facility] [address] [id number] [place] [address]- 8062 Aug, [facility] [address] [id number] [place] [address]- 9001 Aug, [facility] [place] [facility] [address] [id number] [place] [address]- 1533 Aug, [facility] [place] [facility] [address] [id number] [place] [address]- 1235 Aug, [facility] [place] [facility] [address] [id number] [place] [address]- 0646 Aug, [facility] [place] [facility] [address] [id number] [place] [address]- 7884 Aug, [facility] [address] [id number] [place] [address]- 3560 Aug, [facility] [place] [facility] [address] [id number] [place] [address]- 8813 Aug, [facility] [place] [facility] [address] [id number] [place] [address]- 6980 Aug, [facility] [place] [facility] [address] [id number] [place] 0805 Aug, [facility] [place] [facility] [address] [id number] [place] [address]- 6641 Aug, [facility] [place] [facility] [address] [id number] [place] [address]- 2171 Aug, [facility] [place] [facility] [address] [id number] [place] [address]- 0318 Aug, [facility] [place] [facility] [address] [id number] [place] [address]- 9470 Jul, [facility] [place] [facility] [address] [id number] [place] [address]- 2319 Jul, [facility] [place] [facility] [address] [id number] [place] [address]- 8440 Jul, [facility] [place] [facility] [address] [facility] [id number] [place] [address]- 0357 Jul, [facility] [place] [facility] [address] [id number] [place] [address]- 4905 Jul, [facility] [place] [facility] [address] [id number] [place] [address]- 7888 Jul, [facility] [place] [facility] [address] [id number] [place] [address]- 0923 Jul, [facility] [place] [facility] [address] [id number] [place] [address]- 5558 Jul, [facility] [place] [facility] [address] [id number] [place] [address]- 1192 Jul, [facility] [place] [facility] [address] [id number] [place] [address]- 2936 Jul, [facility] [place] [facility] [address] [id number] [place] 7534 Jun, [facility] [place] [facility] [address] [id number] [place] 1206 Jun, [facility] [place] [facility] [address] [id number] [place] [address]- 8840 Jun, [facility] [place] [facility] [address] [id number] [place] [address]- 4862 Jun, [facility] [place] [facility] [address] [id number] [place] [address]- 2975 Jun, [facility] [place] [facility] [address] [id number] [place] [address]- 7925 Jun, [facility] [place] [facility] [address] [id number] [place] [address]- 0787 Jun, [facility] [place] [facility] [address] [id number] [place] [address]- 1167 Jun, [facility] [place] [facility] [address] [id number] [place] [address]- 6755 Jun, [facility] [place] [facility] [address] [id number] [place] [address]- 4273 Jun, [facility] [place] [facility] [address] [id number] [place] [address]- 5012 29 May, 2014 [facility] [place] [facility] [address] [id number] [place] [address]- 5475 29 May, 2014 [facility] [place] [facility] [address] [id number] [place] [address]- 0070 May, [facility] [place] [facility] [address] [id number] [place] [address]- 5676 May, [facility] [place] [facility] [address] [id number] [place] [address]- 9715 17 May, 2013 [facility] [place] [facility] [address] [id number] [place] [address] 2546 17 May, 2013 [facility] [place] [facility] [address] [id number] [place] [address] 2546 15 May, 2013 [facility] [place] [facility] [address] [id number] [place] [address] 2546 15 May, 2013 [facility] [place] [facility] [address] [id number] [place] [address] 2546 15 May, 2013 [facility] [place] [facility] [address] [id number] [place] [address]- 7904 15 May, 2013 [facility] [place] [facility] [address] [id number] [place] [address]- 6361 10 May, 2013 [facility] [place] [facility] [address] [id number] [place] [address]- 7480 10 May, 2013 [facility] [place] [facility] [address] [id number] [place] [address]- 4366 09 May, 2013 [facility] [place] [facility] [address] [id number] [place] [address] 254 09 May, 2013 [facility] [place] [facility] [address] [id number] [place] [address]- 2541 04 May, 2014 [facility] [place] [facility] [address] [id number] [place] [address] 2549 May, 2013 [facility] [place] [facility] [address] [id number] [place] [address]- 1693 Apr, [facility] [place] [facility] [address] [id number] [place] [address]- 2548 Apr, [facility] [place] [facility] [address] [id number] [place] [address]- 3924 Apr, [facility] [place] [facility] [address] [id number] [place] [address]- 4247 Apr, [facility] [place] [facility] [address] [id number] [place] [address]- 1600 Apr, [facility] [place] [facility] [address] [id number] [facility] [place] [address]- 5406 Apr, [facility] [place] [facility] [address] [id number] [place] [address]- 1464 Apr, [facility] [place] [facility] [address] [id number] [place] [address]- 0582 Apr, [facility] [place] [facility] [address] [id number] [place] [address]- 4986 Apr, [facility] [place] [facility] [address] [id number] [place] [address]- [address] Apr, [facility] [place] [facility] [address] [id number] [place] [address] Apr, [facility] [place] [facility] [address] [id number] [place] [address] Apr, [facility] [place] [facility] [address] [id number] [place] [address] Apr, [facility] [place] [facility] [address] [id number] [place] [address] Apr, [facility] [place] [facility] [address] [id number] [place] [address] Apr, [facility] [place] [facility] [address] [id number] [place] [address] Mar, [facility] [place] [facility] [address] [id number] [place] [address] Mar, [facility] [place] [facility] [address] [id number] [place] [address] Mar, [facility] [place] [facility] [address] [id number] [place] [address] Mar, [facility] [place] [facility] [address] [id number] [place] [address] Mar, [facility] [place] [facility] [address] [id number] [place] [address] Mar, 2013 [facility] [place] [facility] [address] [id number] [place] [address] Mar, 2013 [facility] [place] [facility] [address] [id number] [place] [address] Mar, 2013 [facility] [place] [facility] [address] [id number] [place] [address] Mar, 2013 [facility] [place] [facility] [address] [id number] [place] [address]- [address] Mar, 2013 [facility] [place] [facility] [address] [id number] [place] [address] Mar, 2013 [facility] [place] [facility] [address] [id number] [place] [address] Mar, 2013 [facility] [place] [facility] [address] [id number] [place] [address]- [address] Mar, 2013 [facility] [place] [facility] [address] [id number] [place] [address]- [address] Mar, 2013 [facility] [place] [facility] [address] [id number] [place] [address]- [address] Mar, 2013 [facility] [place] [facility] [address] [id number] [place] [address]- [address] Mar, 2013 [facility] [place] [facility] [address] [id number] [place] [address]- [address] Mar, [facility] [place] [facility] [address] [id number] [place] [address] Mar, [facility] [place] [facility] [address] [id number] [place] [address] Feb, [facility] [place] [facility] [address] [id number] [place] [address]- [address] Feb, [facility] [place] [facility] [address] [id number] [place] [address] Feb, [facility] [place] [facility] [address] [id number] [place] [address] Feb, [facility] [place] [facility] [address] [id number] [place] [address]- [address] Feb, [facility] [place] [facility] [address] [id number] [place] [address]- 39[address] Feb, [facility] [place] [facility] [address] [id number] [place] [address] Feb, [facility] [place] [facility] [address] [id number] [place] [address] 98[address] Feb, [facility] [place] [facility] [address] [id number] [place] [address] Feb, [facility] [place] [facility] [address] [id number] [place] [address]- [address] Feb, [facility] [place] [facility] [address] [id number] [place] [address]65 Feb, [facility] [place] [facility] [address] [id number] [place] [address] Feb, [facility] [place] [facility] [address] [id number] [place] [address] Feb, [facility] [place] [facility] [address] [id number] [place] [address]- [address] Feb, [facility] [place] [facility] [address] [id number] [place] [address]- [address] January, [facility] [place] [facility] [address] [id number] [place] [address]- [address] January, [facility] [place] [facility] [address] [id number] [place] [address]- [address] January, [facility] [place] [facility] [address] [id number] [place] [address]- [address] January, [facility] [place] [facility] [address] [id number] [place] [address]- 57[address] January, [facility] [place] [facility] [address] [id number] [place] [address]- [address] January, [facility] [place] [facility] [address] [id number] [place] [address]- 84[address] January, [facility] [place] [facility] [address] [id number] [place] [address]- [address] January, [facility] [place] [facility] [address] [id number] [place] [address]- 140[address] January, [facility] [place] [facility] [address] [id number] [place] [address]- [address] January, [facility] [place] [facility] [address] [id number] [place] [address] January, [facility] [place] [facility] [address] [id number] [place] [address]- 8[address] January, [facility] [place] [facility] [address] [id number] [place] [address]- [address] January, [facility] [place] [facility] [address] [id number] [place] [address]- [address] January, [facility] [place] [facility] [address] [id number] [place] [address]- [address] Dec, [facility] [place] [facility] [address] [id number] [place] [address]- [address] Dec, [facility] [place] [facility] [address] [id number] [place] [address]- [address] Dec, [facility] [facility] [address] [id number] [place] [address] Dec, [facility] [address] [id number] [place] [address] 6[address] Dec, [facility] [place] [facility] [address] [id number] [place] [address] Dec, [facility] [place] [facility] [address] [id number] [place] [address] 8818 Dec, [facility] [place] [facility] [address] [id number] [place] [address]- 7694 Dec, [facility] [place] [facility] [address] [id number] [place] [address] 6539 Dec, [facility] [place] [facility] [address] [id number] [place] [address]- 3907 Dec, [facility] [place] [facility] [address] [id number] [place] [address] 8365 Nov, [facility] [place] [facility] [address] [id number] [place] [address]- 4592 Nov, [facility] [place] [facility] [address] [id number] [place] [address]- 3471 Nov, [facility] [place] [facility] [address] [id number] [place] [address] Nov, [facility] [place] [facility] [address] [id number] [place] [address]- 5205 Nov, [facility] [place] [facility] [address] [id number] [place] [address]- 0954 Nov, [facility] [place] [facility] [address] [id number] [place] [address]- 6762 Nov, [facility] [place] [facility] [address] [id number] [place] [address] 7026 Nov, [facility] [place] [facility] [address] [id number] [place] [address]- 1654 Nov, [facility] [place] [facility] [address] [id number] [place] [address]- 1000 Nov, [facility] [place] [facility] [address] [id number] [place] [address]- 3295 Oct, [facility] [place] [facility] [address] [id number] [place] [address]- 3253 Oct, [facility] [place] [facility] [address] [id number] [place] [address]- 5425 Oct, [facility] [place] [facility] [address] [id number] [place] [address]- 2936 Oct, [facility] [place] [facility] [address] [id number] [place] [address]- 6987 Oct, [facility] [place] [facility] [address] [id number] [place] [address]- 9863 Oct, [facility] [place] [facility] [address] [id number] [place] [address]- 7016 Oct, [facility] [place] [facility] [address] [facility] [id number] [place] [address]- 3329 Oct, [facility] [place] [facility] [address] [id number] [place] [address]- 0318 Oct, [facility] [place] [facility] [address] [id number] [place] [address]- 9284 Oct, [facility] [place] [facility] [address] [facility] [id number] [place] [address]- 3416 Oct, [facility] [facility] [address] [facility] [id number] [place] [address] 0620 Oct, [facility] [address] [id number] [place] [address]- 8096 Oct, [facility] [place] [facility] [address] [id number] [place] [address]- 3158 Oct, [facility] [place] [address] [id number] [place] [address]- 1615 Sep, [facility] [address] [facility] [id number] [place] [address]- 5821 Sep, [facility] [address] [id number] [place] [address]- 8862 15 Sep, 2013 [facility] [address] [id number] [place] [address]- 8429 15 Sep, 2013 [facility] [address] [id number] [place] [address]- 7568 14 Sep, 2013 [facility] [facility] [address] [id number] [place] [address]- 8826 14 Sep, 2013 [facility] [place] [facility] [address] [id number] [place] [address]- 5509 14 Sep, 2013 [facility] [place] [facility] [address] [id number] [place] [address]- 5896 Sep, [facility] [place] [facility] [address] [id number] [place] [address]- 7122 08 Sep, 2013 [facility] [address] [id number] [place] [address]- 0775 Sep, [facility] [address] [id number] [place] [address]- 5086 Aug, [facility] [address] [id number] [place] [address]- 1101 Aug, [facility] [address] [id number] [place] [address]- 0130 Jul, [facility] [address] [id number] [place] [address]- 7133 Jul, [facility] [address] [id number] [place] [address]- 7439 Jul, [facility] [address] [id number] [place] [address]- 2828 Jul, [facility] [address] [id number] [place] [address]- 6841 Jul, [facility] [address] [id number] [place] [address]- 4949 Jul, [facility] [address] [id number] [place] [address]- 1825 12 Jul, 2013 [facility] [address] [id number] [place] [address]- 4788 Jul, [facility] [address] [id number] [place] [address]- 2157 Jul, [facility] [address] [id number] [place] [address]- 8836 08 Jul, 2013 [facility] [address] [id number] [place] [address]- 9125 Jul, [facility] [address] [id number] [place] [address]- 1117 Jul, [facility] [address] [id number] [place] [address]- 0717 Jul, [facility] [address] [id number] [place] [address]- 9358 Jul, [facility] [facility] [address] [id number] [place] [address]- 6956 Jul, [facility] [address] [id number] [place] [address]- 0904 Jul, [facility] [address] [facility] [id number] [place] [address]- 7707 Jul, [facility] [address] [id number] [place] [address]- 3509 Jul, [facility] [address] [id number] [place] [address]- 8878 Jul, [facility] [address] [id number] [place] [address]- 6444 Jun, [facility] [address] [id number] [place] [address]- 4686 Jun, [facility] [address] [id number] [place] [address]- 8497 Jun, 2012 [facility] [address] [id number] [place] [address]- 1699 16 Jun, 2012 [facility] [address] [id number] [place] [address]- 0750 16 Jun, 2012 [facility] [address] [id number] [place] [address]- 0439 16 Jun, 2012 [facility] [address] [id number] [place] [address]- 6197 10 Jun, 2012 [facility] [address] [id number] [place] [address]- 9441 10 Jun, 2013 [facility] [address] [id number] [place] [address]- 6646 09 Jun, 2013 [facility] [address] [id number] [place] [address]- 8820 Jun, [facility] [address] [id number] [place] [address]- 2300 Jun, [facility] [address] [id number] [place] [address]- 3890 26 May, 2012 [facility] [address] [id number] [place] [address]- 1618 25 Sep, 2012 [facility] [address] [id number] [place] [address]- 4360 19 Sep, 2012 [facility] [address] [id number] [place] [address]- 1870 17 Sep, 2012 [facility] [address] [id number] [place] [address]- 7138 11 Sep, 2012 [facility] [address] [id number] [place] [address]- 5523 10 May, 2012 [facility] [address] [id number] [place] [address]- 3263 09 May, 2012 [facility] [address] [id number] [place] [address]- 1359 May, [facility] [address] [id number] [place] [address]- 6485 Apr, [facility] [address] [id number] [place] [address]- 5724 Apr, [facility] [address] [id number] [place] [address]- 0277 Apr, [facility] [address] [id number] [place] [address]- 1294 Apr, [facility] [address] [id number] [place] [address]- 5176 Apr, [facility] [address] [id number] [place] [address]- 5039 Mar, [facility] [address] [id number] [place] [address]- 8517 Mar, [facility] [address] [id number] [place] [address]- 5602 Mar, [facility] [address] [id number] [place] [address]- 3389 Mar, [facility] [address] [id number] [place] [address]- 6576 Mar, [facility] [address] [id number] [place] [address]- 8726 Mar, [facility] [address] [id number] [place] [address]- 3660 Mar, [facility] [address] [id number] [place] [address]- 3066 Mar, [facility] [address] [id number] [place] [address]- 1102 Feb, [facility] [address] [id number] [place] [address]- 7596 Feb, [facility] [address] [id number] [place] [address]- 1095 January, [facility] [address] [id number] [place] [address]- 3148 January, [facility] [address] [id number] [place] [address]- 7715 Dec, [facility] [address] [id number] [place] [address]- 2243 Dec, [facility] [address] [id number] [place] [address]- 0228 Nov, [facility] [address] [id number] [place] [address]- 3955 Nov, [facility] [address] [id number] [place] [address]- 6355 Nov, [facility] [address] [id number] [place] [address]- 0434 Nov, [facility] [address] [id number] [place] [address]- 7429 Oct, [facility] [address] [id number] [place] [address]- 9811 Oct, [facility] [address] [id number] [place] [address]- 0201 Oct, [facility] [address] [id number] [place] [address]- 7816 Oct, [facility] [address] [id number] [place] [address]- 5763 Oct, [facility] [address] [id number] [place] [address]- 1692 14 Oct, 2012 [facility] [address] [id number] [place] [address]- 4304 Oct, [facility] [address] [id number] [place] [address]- 2656 07 Oct, 2012 [facility] [address] [id number] [place] [address]- 1194 03 Oct, 2012 [facility] [address] [id number] [place] [address]- 4658 30 Sep, 2012 [facility] [address] [id number] [place] [address]- 8225 Sep, [facility] [address] [id number] [place] [address]- 5571 Sep, [facility] [address] [id number] [place] [address]- 5293 Sep, [facility] [address] [id number] [place] [address]- 4335 17 Sep, 2012 [facility] [address] [id number] [place] [address]- 9819 Sep, [facility] [address] [id number] [place] [address]- 9630 Sep, [facility] [address] [id number] [place] [address]- 0810 Sep, [facility] [address] [facility] [id number] [place] [address]- 6530 Aug, [facility] [address] [id number] [place] [address]- 6836 Aug, [facility] [address] [id number] [place] [address]- 2549 Aug, [facility] [address] [id number] [place] [address]- 7946 Aug, [facility] [address] [id number] [place] [address]- 7206 Aug, [facility] [address] [id number] [place] [address]- 2439 Aug, [facility] [address] [id number] [place] [address]- 4511 Aug, [facility] [address] [id number] [place] [address]- 4201 Aug, [facility] [address] [id number] [place] [address]- 5210 Jul, [facility] [address] [id number] [place] [address], [place] [address]- 2122 Jul, [facility] [address] [id number] [place] [address]- 1448 Jul, [facility] [place] [facility] [address] [id number] [place] [address], [place] [address]- 2923 Jul, [facility] [address] [id number] [place] [address]- 3746 Jul, [facility] [address] [id number] [place] [address], [place] [address]- 5440 Jul, [facility] [address] [id number] [place] [address]- 2661 Jun, [facility] [facility] [address] [id number] [place] [address]- 3419 Jun, [facility] [facility] [address] [id number] [place] [address]- 1740 Jun, [facility] [facility] [address] [id number] [place] [address]- 6642 Jun, [facility] [place] [facility] [address] [id number] [place] [address]- 6210 Jun, [facility] [place] [facility] [address] [id number] [place] [address]- 9438 Jun, [facility] [place] [facility] [address] [id number] [place] [address]- 1099 Jun, [facility] [place] [facility] [address] [id number] [place] [address]- 4248 Jun, [facility] [place] [facility] [address] [id number] [place] [address]- 5786 Jun, [facility] [place] [facility] [address] [id number] [place] [address]- 3466 26 May, 2012 [facility] [place] [facility] [address] [id number] [place] [address]- 7956 24 May, 2012 [facility] [place] [facility] [address] [id number] [place] [address]- 8546 May, [facility] [place] [facility] [address] [id number] [place] [address]- 0686 Apr, [facility] [place] [facility] [address] [id number] [place] [address]- 8021 Apr, [facility] [place] [facility] [address] [id number] [place] [address]- 3324 Apr, [facility] [place] [facility] [address] [id number] [place] [address]- 3268 Apr, [facility] [place] [facility] [address] [id number] [place] [address]- 2134 Apr, [facility] [place] [facility] [address] [id number] [place] [address]- 7405 Apr, [facility] [place] [facility] [address] [id number] [place] [address]- 7551 Mar, [facility] [place] [facility] [address] [id number] [place] [address]- 2706 Mar, [facility] [place] [facility] [address] [id number] [place] [address]- 3027 Mar, [facility] [place] [facility] [address] [id number] [place] [address]- 6274 Mar, [facility] [place] [facility] [address] [id number] [place] [address]- 8618 Feb, [facility] [place] [facility] [address] [id number] [place] [address]- 6642 Feb, [facility] [address] [id number] [place] [address]- 1339 Feb, [facility] [address] [id number] [place] [address]- 1525 Feb, [facility] [address] [id number] [place] [address]- 1955 Feb, [facility] [address] [id number] [place] [address]- 3447 January, [facility] [address] [id number] [place] [address]- 4814 January, [facility] [address] [id number] [place] [address]- 2093 January, [facility] [address] [id number] [place] [address]- 1143 January, [facility] [address] [id number] [place] [address]- 6758 January, [facility] [address] [id number] [place] [address]- 2662 January, [facility] [address] [id number] [place] [address]- 7275 Dec, [facility] [address] [id number] [place] [address]- 7499 Dec, [facility] [address] [id number] [place] [address]- 7443 Dec, [facility] [place] [facility] [address] [id number] [place] [address]- 0759 Dec, [facility] [address] [id number] [place] [address]- 5226 Dec, [facility] [address] [id number] [place] [address]- 0763 Nov, [facility] [address] [id number] [place] [address]- 3042 14 Nov, 2011 [facility] [place] [facility] [address] [id number] [place] [address]- 8486 12 Nov, 2011 [facility] [place] [facility] [address] [id number] [place] [address]- 0214 07 Nov, 2011 [facility] [place] [facility] [address] [id number] [place] [address]- 3275 29 Oct, 2011 [facility] [place] [facility] [address] [id number] [place] [address]- 6123 28 Oct, 2011 [facility] [place] [facility] [address] [id number] [place] [address]- 9760 24 Oct, 2011 [facility] [place] [facility] [address] [id number] [place] [address]- 2507 13 Oct, 2011 [facility] [place] [facility] [address] [id number] [place] [address]- 0707 08 Oct, 2011 [facility] [place] [facility] [address] [id number] [place] [address]- 7440 Sep, [facility] [place] [facility] [address] [id number] [place] [address]- 3146 Sep, [facility] [place] [facility] [address] [id number] [place] [address]- 2376 Sep, [facility] [place] [facility] [address] [id number] [place] [address]- 2385 Sep, [facility] [place] [facility] [address] [id number] [place] [address]- 0013 Sep, [facility] [place] [facility] [address] [id number] [place] [address]- 8375 Sep, [facility] [place] [facility] [address] [id number] [place] [address]- 9575 Aug, [facility] [place] [facility] [address] [id number] [place] [address]- 6044 Aug, [facility] [place] [facility] [address] [id number] [place] 8114 Aug, [facility] [place] [facility] [address] [id number] [place] [address] Jul, [facility] [place] [facility] [address] [id number] [place] [address] Jul, [facility] [place] [facility] [address] [id number] [place] [address] Jul, [facility] [place] [facility] [address] [id number] [place] [address] Jul, [facility] [place] [facility] [address] [id number] [place] [address] Jun, [facility] [place] [facility] [address] [id number] [place] [address] Jun, [facility] [place] [facility] [address] [id number] [place] [address] Jun, [facility] [place] [facility] [address] [id number] [place] [address] Jun, [facility] [place] [facility] [address] [facility] [id number] [place] [address] Jun, [facility] [place] [facility] [address] [id number] [place] [address] Jun, [facility] [place] [facility] [address] [id number] [place] [address] Mar, [facility] [place] [facility] [address] [id number] [place] [address] Dec, [facility] [place] [facility] [address] [id number] [place] [address] Dec, [facility] [place] [facility] [address] [id number] [place] [address] Nov, [facility] [place] [facility] [address] [id number] [place] [address] 16 Nov, 2010 [facility] [address] [id number] [place] [address] 10 Sep, 2010 [facility] [address] [id number] [place] [address] 31 Aug, 2010 [facility] [address] [id number] [place] [address] Aug, [facility] [address] [id number] [place] - [address] 29 Aug, 2010 [facility] [address] [id number] [place] [address] Aug, [facility] [address] [id number] [place] [address] Aug, [facility] [address] [id number] [place] [address] 14 Aug, 2010 [facility] [address] [id number] [place] [address] Aug, [facility] [address] [id number] [place] [address] Aug, [facility] [address] [id number] [place] [address] Aug, [facility] [address] [id number] [place] [address] Aug, [facility] [address] [id number] [place] [address] Aug, [facility] [place] [facility] [address] [id number] [place] [address] Aug, [facility] [address] [id number] [place] [address]- [address]78 30 Jul, 2010 [facility] [address] [id number] [place] [address] Jul, [facility] [place] [facility] [address] [id number] [place] [address] 30 Jul, 2010 [facility] [place] [facility] [address] [id number] [place] [address] Jul, [facility] [place] [facility] [address] [id number] [place] [address] Jul, [facility] [place] [facility] [address] [id number] [place] [address] 2543 Jul, [facility] [place] [facility] [address] [id number] [place] [address]- [address] 24 Jun, 2010 [facility] [place] [facility] [address] [id number] [place] [address] Jun, [facility] [place] [facility] [address] [id number] [place] [address] 17[address] Jun, [facility] [place] [facility] [address] [id number] [place] [address] Jun, [facility] [place] [facility] [address] [id number] [place] [address] 16 Apr, 2010 [facility] [place] [facility] [address] [id number] [place] [address] Mar, [facility] [place] [facility] [address] [id number] [place] [address] 95[address] Feb, [facility] [place] [facility] [address] [id number] [place] [address] January, [facility] [place] [facility] [address] [id number] [place] [address]- [address] 15 Dec, 2009 [facility] [place] [facility] [address] [id number] [place] [address] Nov, [facility] [place] [facility] [address] [id number] [place] [address] 31 Aug, 2009 [facility] [place] [facility] [address] [id number] [place] [address] 40[address] Aug, [facility] [address] [id number] [place] [address]- 9426 Aug, [facility] [place] [facility] [address] [id number] [place] [address]- 3536 Jul, [facility] [address] [id number] [place] [address]- [address] Jul, [facility] [place] [facility] [address] [id number] [place] [address]- [address] Jul, [facility] [address] [id number] [place] [address] Jun, [facility] [address] [facility] [id number] [place] [address] 43[address] Jun, [facility] [address] [facility] [id number] [place] [address]- 45[address] Jun, [facility] [address] [id number] [place] [address] Jun, [facility] [address] [facility] [id number] [place] [address] 80[address] Jun, [facility] [address] [facility] [id number] [place] [address] Jun, [facility] [place] [facility] [address] [facility] [id number] [place] [address]- 1710 Apr, [facility] [address] [id number] [place] [address]47 Apr, [facility] [place] [facility] [address] [facility] [id number] [place] [address] Feb, [facility] [place] [facility] [address] [facility] [id number] [place] [address] January, [facility] [address] [id number] [place] [address] Dec, IMMUNIZATIONS No Known Immunizations SOCIAL HISTORY Never Assessed REASON FOR VISIT Controlled Med Refill 04/10/18 PLAN OF CARE VITAL SIGNS MEDICATIONS Medication Instructions Dosage Frequency Start Date End Date Duration Status Percocet 10-325 MG Orally 4 times a day 1 tablet as needed 6h 14 Mar, 2018 28 days Active RESULTS No Results PROCEDURES [...] 2009 Surgical History colonoscopy 2009 ([facility]), 2013 ([facility]) Surgical History heart cath: CAD w/ PTCA [...]
--- OUTSIDE RECORDS SUMMARY | 2018-08-08 13:59 | XMS REPORT ---
Author Author ROSELINE LUIS Organization [facility] Address [address] [place] [address] Care Team Providers Care Belt Measurer Name Role Phone ROSELINE LUIS Unavailable PROBLEMS Type Condition ICD9-CM Code ZWR77-QO Code Onset Dates Condition Status SNOMED Code Problem Chronic lymphocytic leukemia C91.10 Active 99085202 Problem Lymphocytosis D72.820 Active 64482470 Problem Eye exam abnormal R93.8 Active 091562666 Problem Eustachian tube dysfunction, unspecified laterality H69.80 Active 08902436 Problem Essential hypertension I10 Active 16124048 Problem Dysuria R30.0 Active 36024044 Problem Diabetic polyneuropathy associated with type 2 diabetes mellitus E11.42 Active 79324660 Problem Cough R05 Active 84900752 Problem Polyneuropathy associated with underlying disease G63 Active 648473284 Problem Retinal edema H35.81 Active 9942160 Problem Bilateral primary osteoarthritis of knee M17.0 Active 508742538 Problem Primary osteoarthritis of right knee M17.11 Active 895743594780501 Problem Pure hypercholesterolemia E78.00 Active 814936856 Problem DM neuro manif type II E11.49 Active 28285386 Problem Benign prostatic hyperplasia with lower urinary tract symptoms, unspecified morphology N40.1 Active 863116813 Problem Hypokalemia E87.6 Active 85977278 Problem 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 Active 092957028 Problem Anemia of chronic illness D63.8 Active 955115817 Problem Bipolar disorder, in partial remission, most recent episode depressed F31.75 Active 28688636 Problem Falling R29.6 Active 266745494 Problem Leukocytosis D72.829 Active 838441304 Problem Reactive airway disease J45.909 Active 440348206594 Problem Diabetes E11.9 Active 46716321 Problem Chronic pain G89.29 Active 78605390 Problem Anxiety F41.9 Active 14120956 Problem Morbid obesity E66.01 Active 989566815 Problem Bipolar I disorder, most recent episode (or current) mixed, moderate F31.62 Active 27483541 Problem Insomnia, unspecified type G47.00 Active 705394454 ALLERGIES No Information ENCOUNTERS Encounter Location Date Diagnosis [facility] [id number] [place] [address] 22562- 5246 Jun, [facility] [id number] [place] [address] 49879- 2943 Apr, [facility] [address] 10493- 0492 Apr, Chronic pain G89.29 [facility] [address] 02072- 5125 Apr, Primary osteoarthritis of right knee M17.11 [facility] [address] 63158- 6632 Mar, [facility] [address] 16099- 5327 Mar, BMI 50.0-59.9, adult Z68.43 and Bipolar disorder, in partial remission, most recent episode depressed F31.75 [facility] [address] 45649- 9864 Mar, Diabetes E11.9 ; Pure hypercholesterolemia E78.00 ; Essential hypertension I10 ; Nausea with vomiting, unspecified R11.2 and Headache, unspecified headache type R51 [facility] [id number] [place] [address] 28398- 9060 Mar, Bipolar I disorder, most recent episode (or current) mixed, moderate F31.62 [facility] [id number] [place] [address] 13692- 9740 Mar, Bipolar I disorder, most recent episode (or current) mixed, moderate F31.62 [facility] [id number] [place] [address] 04596- 7952 Mar, Chronic pain G89.29 [facility] [address] 22533- 0304 Mar, Bipolar I disorder, most recent episode (or current) mixed, moderate F31.62 [facility] [id number] [place] [address] 81862- 5096 Feb, Bipolar I disorder, most recent episode (or current) mixed, moderate F31.62 [facility] [address] [address] 9482 Feb, Chronic pain G89.29 [facility] [id number] [place] [address] 93528- 6908 Feb, Decubitus ulcer of right foot, stage 3 L89.893 and BMI 50.0- 59.9, adult Z68.43 [facility] [address] [address] 2217 Feb, Bipolar I disorder, most recent episode (or current) mixed, moderate F31.62 [facility] [id number] [place] [address] 52996- 1030 Feb, [facility] [id number] [place] [address] 85716- 1475 January, [facility] [id number] [place] [address] 48465- 8992 January, Chronic pain G89.29 [facility] [address], [place] [address]- 3563 January, Bipolar I disorder, most recent episode (or current) mixed, moderate F31.62 [facility] [address], [place] [address]- 0454 January, Bipolar I disorder, most recent episode (or current) mixed, moderate F31.62 [facility] [address] [address]- 0503 Dec, Bipolar I disorder, most recent episode (or current) mixed, moderate F31.62 and BMI 50.0-59.9, adult Z68.43 [facility] [id number] [place] [address] 45125- 0226 Dec, Bipolar I disorder, most recent episode (or current) mixed, moderate F31.62 [facility] [id number] [place] [address] 69290- 5082 Dec, Chronic pain G89.29 [facility] [address] 27627- 6738 Dec, DM neuro manif type II E11.49 ; Right flank pain R10.9 ; snf 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 Z79.891 ; Encounter for medication monitoring Z51.81 and BMI 50.0-59.9, adult Z68.43 [facility] [id number] [place] [address] 87536- 4671 Dec, Bipolar I disorder, most recent episode (or current) mixed, moderate F31.62 [facility] [address] 32689- 6085 Nov, Bipolar I disorder, most recent episode (or current) mixed, moderate F31.62 [facility] [address] 55023- 9319 Nov, Chronic pain G89.29 [facility] [id number] [place] [address] 99234- 9116 Nov, Bipolar I disorder, most recent episode (or current) mixed, moderate F31.62 [facility] [id number] [place] [address] 25989- 4764 Nov, Hypokalemia E87.6 [facility] [address] 31244- 0437 Nov, Bipolar I disorder, most recent episode (or current) mixed, moderate F31.62 [facility] [id number] [place] [address] 46376- 8369 Oct, Chronic pain G89.29 [facility] [address] [place] [address]- 8477 Oct, BMI 50.0-59.9, adult Z68.43 and Bipolar I disorder, most recent episode (or current) mixed, moderate F31.62 [facility] [id number] [place] [address] 46887- 8705 Oct, Bipolar I disorder, most recent episode (or current) mixed, moderate F31.62 [facility] [id number] [place] [address] 44758- 6355 Oct, [facility] [address] 50299- 8741 Oct, Hypokalemia E87.6 [facility] [id number] [place] [address] 74085- 2777 Oct, DM neuro manif type II E11.49 [facility] [id number] [place] [address] 26443- 7704 Oct, Bipolar I disorder, most recent episode (or current) mixed, moderate F31.62 [facility] [id number] [place] [address] 70617- 0022 Oct, Bipolar I disorder, most recent episode (or current) mixed, moderate F31.62 [facility] [id number] [place] [address] 34802- 0526 14 Oct, 2017 Hyperkalemia E87.5 ; Falling R29.6 ; BMI 50.0-59.9, adult Z68.43 and Acute left ankle pain M25.572 [facility] [id number] [place] [address] 02634- 4409 Oct, DM neuro manif type II E11.49 [facility] [id number] [place] [address] 40635- 9968 Oct, [facility] [id number] [place] [address] 43440- 1970 Sep, Chronic pain G89.29 [facility] [id number] [place] [address] 04130- 5044 Sep, [facility] [id number] [place] [address] 18037- 4731 Sep, Bilateral primary osteoarthritis of knee M17.0 [facility] [address] 55070- 7456 Sep, Generalized edema R60.1 [facility] [id number] [place] [address] 89372- 5527 Sep, Bipolar I disorder, most recent episode (or current) mixed, moderate F31.62 [facility] [address] 65175- 0554 Sep, Hypoxia R09.02 ; Other hypervolemia E87.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 ; Anemia of chronic illness D63.8 and BMI 50.0- 59.9, adult Z68.43 [facility] [id number] [place] [address] 71285- 8496 Sep, [facility] [id number] [place] [address] 11506- 8119 Sep, Bipolar I disorder, most recent episode (or current) mixed, moderate F31.62 [facility] [id number] [place] [address] 58447- 3662 Aug, Chronic pain G89.29 [facility] [id number] [place] [address] 77118- 3112 Aug, Generalized edema R60.1 [facility] [id number] [place] [address] 29049- 6378 Aug, [facility] [id number] [place] [address] 92742- 8964 Aug, [facility] [address] [address]- 1349 14 Aug, 2017 Bipolar I disorder, most recent episode (or current) mixed, moderate F31.62 [facility] [address] [place] [address]273 07 Aug, 2017 Bipolar I disorder, most recent episode (or current) mixed, moderate F31.62 [facility] [id number] [place] [address] 38246- 8936 04 Aug, 2017 Chronic pain G89.29 [facility] [id number] [place] [address] 29848- 2738 30 Jul, 2017 Bipolar I disorder, most recent episode (or current) mixed, moderate F31.62 [facility] [id number] [place] [address] 86493- 4810 Jul, Bipolar I disorder, most recent episode (or current) mixed, moderate F31.62 and BMI 60.0-69.9, adult Z68.44 [facility] [id number] [place] [address] 47971- 8765 16 Jul, 2017 Bipolar I disorder, most recent episode (or current) mixed, moderate F31.62 [facility] [id number] [place] [address] 38164- 5099 Jul, Chronic pain G89.29 [facility] [id number] [place] [address] 25244- 7999 02 Jul, 2017 Bipolar I disorder, most recent episode (or current) mixed, moderate F31.62 [facility] [id number] [place] [address] 30369- 1664 18 Jun, 2017 Polyneuropathy associated with underlying disease G63 and Diabetes E11.9 [facility] [id number] [place] [address] 86260- 8133 16 Jun, 2017 Bipolar I disorder, most recent episode (or current) mixed, moderate F31.62 [facility] [id number] [place] [address] 67191- 7425 09 Jun, 2017 Chronic pain G89.29 [facility] [id number] [place] [address] 380884- 2371 27 May, 2017 Bipolar I disorder, most recent episode (or current) mixed, moderate F31.62 [facility] [id number] [place] [address] 37773- 3840 21 May, 2017 Bipolar I disorder, most recent episode (or current) mixed, moderate F31.62 [facility] [id number] [place] [address] 64296- 2509 20 May, 2017 Diabetic polyneuropathy associated with type 2 diabetes mellitus E11.42 [facility] [id number] [place] [address] 03976- 9811 18 May, 2017 Bipolar I disorder, most recent episode (or current) mixed, moderate F31.62 [facility] [id number] [place] [address] 60730- 8445 13 May, 2017 Bipolar I disorder, most recent episode (or current) mixed, moderate F31.62 [facility] [id number] [place] [address] 66503- 3980 May, Chronic pain G89.29 [facility] [id number] [place] [address] 79019- 4749 Apr, Bipolar I disorder, most recent episode (or current) mixed, moderate F31.62 [facility] [id number] [place] [address] 21168- 6090 Apr, [facility] [id number] [place] [address] 21290- 6499 Apr, Chronic pain G89.29 and DM neuro manif type II E11.49 [facility] [id number] [place] [address] 34787- 1844 Apr, [facility] [id number] [place] [address] 18971- 1839 Apr, Bipolar I disorder, most recent episode (or current) mixed, moderate F31.62 [facility] [id number] [place] [address] 41809- 9985 Apr, Chronic pain G89.29 [facility] [id number] [place] [address] 89152- 8096 Apr, Iliotibial band syndrome, left M76.32 [facility] [id number] [place] [address] 476601- 1355 Apr, Bipolar I disorder, most recent episode (or current) mixed, moderate F31.62 [facility] [id number] [place] [address] 57363- 8562 Mar, Bipolar I disorder, most recent episode (or current) mixed, moderate F31.62 [facility] [id number] [place] [address] 60147- 9276 Mar, Bipolar I disorder, most recent episode (or current) mixed, moderate F31.62 [facility] [id number] [place] [address] 30056- 2815 Mar, [facility] [id number] [place] [address] 73259- 5736 Mar, Bipolar I disorder, most recent episode (or current) mixed, moderate F31.62 [facility] [id number] [place] [address] 51021- 4386 Mar, Chronic pain G89.29 [facility] [id number] [place] [address] 69511- 6675 Mar, Bipolar I disorder, most recent episode (or current) mixed, moderate F31.62 [facility] [id number] [place] [address] 69789- 6116 Mar, Bipolar I disorder, most recent episode (or current) mixed, moderate F31.62 [facility] [id number] [place] [address] 33112- 4902 06 Saul, 2017 Acute pain of left knee M25.562 ; Left hip pain M25.552 ; Generalized edema R60.1 and Tongue swelling R22.0 [facility] [id number] [place] [address] 34700- 2843 Mar, [facility] [id number] [place] [address] 33962- 8679 Feb, Chronic pain G89.29 [facility] [id number] [place] [address] 27336- 1717 Feb, Diabetes E11.9 [facility] [id number] [place] [address] 47020- 1571 January, Chronic pain G89.29 [facility] [id number] [place] [address] 66837- 6169 January, [facility] [id number] [place] [address] 61960- 0497 January, Bipolar I disorder, most recent episode (or current) mixed, moderate F31.62 [facility] [id number] [place] [address] 91584- 6377 Dec, Bipolar I disorder, most recent episode (or current) mixed, moderate F31.62 [facility] [id number] [place] [address] 72731- 3220 Dec, Chronic pain G89.29 [facility] [id number] [place] [address] 90856- 1308 Dec, Bipolar I disorder, most recent episode (or current) mixed, moderate F31.62 [facility] [id number] [place] [address] 74030- 7907 Dec, Diabetes E11.9 ; Essential hypertension I10 ; Chronic pain G89.29 and Morbid obesity E66.01 [facility] [id number] [place] [address] 59581- 5942 Dec, [facility] [id number] [place] [address] 57236- 9266 Dec, Bipolar I disorder, most recent episode (or current) mixed, moderate F31.62 [facility] [address], [place] [address] 2546 Dec, Bipolar I disorder, most recent episode (or current) mixed, moderate F31.62 [facility] [address], [place] [address]- 1936 Nov, Chronic pain G89.29 [facility] [address], [place] [address] 2546 Nov, Bipolar I disorder, most recent episode (or current) mixed, moderate F31.62 [facility] [address] [address]- 2066 Nov, [facility] [address], [place] [address]- 5076 Nov, Bipolar I disorder, most recent episode (or current) mixed, moderate F31.62 [facility] [address], [place] [address]- 3598 Nov, Bipolar I disorder, most recent episode (or current) mixed, moderate F31.62 [facility] [address], [place] [address]- 5036 Nov, [facility] [address] [address]- 6296 Nov, [facility] [id number] [address] 2546 Nov, [facility] [id number] [address]- 7606 Oct, Chronic pain G89.29 [facility] [id number] [address]- 6416 Oct, Bipolar I disorder, most recent episode (or current) mixed, moderate F31.62 [facility] [id number] [address]- 0838 Oct, [facility] [id number] [place] [address] 97084- 1196 Oct, Chronic pain G89.29 ; Diabetes E11.9 ; Anxiety F41.9 and 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 [facility] [id number] [place] [address] 50024- 2046 Oct, [facility] [id number] [place] [address] 31230- 2546 Oct, Diabetes E11.9 [facility] [id number] [place] [address] 85770 254 Oct, Bipolar I disorder, most recent episode (or current) mixed, moderate F31.62 [facility] [id number] [place] [address] 42987- 8325 Sep, Chronic pain G89.29 [facility] [id number] [place] [address] 69572- 7588 Sep, Chronic pain G89.29 [facility] [id number] [place] [address] 34890- 4186 Aug, Chronic pain G89.29 [facility] [id number] [place] [address] 57512- 6246 Jul, [facility] [id number] [place] [address] 47308 2540 Jul, Diabetes E11.9 [facility] [id number] [place] [address] 00962 2546 Jul, Chronic pain G89.29 [facility] [id number] [place] [address] 41127- 2547 Jul, Bipolar I disorder, most recent episode (or current) mixed, moderate F31.62 [facility] [id number] [place] [address] 51286- 3960 Jun, Bipolar I disorder, most recent episode (or current) mixed, moderate F31.62 [facility] [id number] [place] [address] 90455- 1256 Jun, [facility] [id number] [place] [address] 97752- 0568 Jun, Bipolar I disorder, most recent episode (or current) mixed, moderate F31.62 [facility] [id number] [place] [address] 15424- 4223 May, Insomnia, unspecified type G47.00 [facility] [id number] [place] [address] 89407- 9219 May, Bipolar I disorder, most recent episode (or current) mixed, moderate F31.62 [facility] [id number] [place] [address] 91471- 3303 May, [facility] [id number] [place] [address] 27058- 9454 May, Bipolar I disorder, most recent episode (or current) mixed, moderate F31.62 [facility] [id number] [place] [address] 50508- 6569 May, Diabetes E11.9 and Essential hypertension I10 [facility] [id number] [place] [address] 85267- 8519 Apr, Chronic pain G89.29 [facility] [id number] [place] [address] 65703- 6759 Apr, Bipolar I disorder, most recent episode (or current) mixed, moderate F31.62 [facility] [id number] [place] [address] 24841- 4619 Apr, [facility] [id number] [place] [address] 65204- 1301 Apr, [facility] [id number] [place] [address] 91770- 6182 Mar, Chronic pain G89.29 ; Headache, unspecified headache type R51 ; Neuropathy G62.9 ; Pain of right hip joint M25.551 and Essential hypertension I10 [facility] [id number] [place] [address] 95356- 7675 Mar, Chronic pain G89.29 [facility] [id number] [place] [address] 32197- 3623 Mar, Bipolar I disorder, most recent episode (or current) mixed, moderate F31.62 [facility] [id number] [place] [address] 92040- 1673 Feb, Bipolar I disorder, most recent episode (or current) mixed, moderate F31.62 and Insomnia, unspecified type G47.00 [facility] [id number] [place] [address] 55534- 7825 Feb, Chronic pain G89.29 [facility] [address] 81415- 1852 Feb, Bipolar I disorder, most recent episode (or current) mixed, moderate F31.62 [facility] [id number] [place] [address] 57302- 9786 January, Bipolar I disorder, most recent episode (or current) mixed, moderate F31.62 [facility] [id number] [place] [address] 82875- 1102 January, Chronic pain G89.29 [facility] [id number] [place] [address] 77032- 8991 January, Chronic pain G89.29 and Essential hypertension I10 [place] [id number] [place] [address] 28239- 1991 January, Bipolar I disorder, most recent episode (or current) mixed, moderate F31.62 [place] [id number] [place] [address] 74323- 0312 Dec, [facility] [id number] [address] Dec, [facility] [id number] [place] [address] 86735- 4032 Dec, [facility] [id number] [place] [address] 55487- 1247 Dec, [facility] [id number] [place] [address] 50246- 1293 Nov, Reactive airway disease J45.909 [facility] [id number] [place] [address] 47673- 2375 Nov, [facility] [id number] [place] [address] 36173- 9957 Nov, [facility] [id number] [place] [address] 81261- 0247 Nov, [facility] [id number] [place] [address] 65101- 7725 Nov, [facility] [id number] [place] [address] 25826- 8412 Nov, Onychomycosis B35.1 ; Hammertoe M20.40 ; [place] or callus L84 and DM neuro manif type II E11.49 [facility] [id number] [place] [address] 46462- 1906 Nov, Chronic pain G89.29 ; Leukocytosis D72.829 and Diabetes E11.9 [facility] [id number] [place] [address] 23804- 3369 Nov, [facility] [id number] [place] [address] 94687- 4096 Oct, Bronchitis J40 [facility] [id number] [place] [address] 62222- 0208 Oct, [facility] [id number] [place] [address] 61713- 0437 Oct, [facility] [id number] [place] [address] 32961- 9439 Oct, Mastoiditis, unspecified laterality H70.90 and Type 2 diabetes mellitus with complication E11.8 [facility] [id number] [place] [address] 70177- 8577 Sep, [facility] [address] 40570- 9701 Sep, Dysuria R30.0 ; Cough R05 ; Benign prostatic hyperplasia with lower urinary tract symptoms, unspecified morphology N40.1 ; Hypokalemia E87.6 and Eustachian tube dysfunction, unspecified laterality H69.80 [facility] [id number] [place] [address] 23158- 1060 Sep, Moderate mixed bipolar I disorder F31.62 [place] [address] 68102- 9485 Sep, Hypokalemia E87.6 [facility] [address] 05271- 0096 Sep, [facility] [id number] [place] [address] 12910- 7473 Sep, Upper respiratory tract infection, unspecified type J06.9 [place] [id number] [place] [address] 68949- 2218 Aug, [facility] [id number] [place] [address] 70059- 7371 Aug, Dysuria R30.0 [facility] [id number] [place] [address] 32479- 5450 Aug, [facility] [id number] [place] [address] 34018- 6797 Jul, [facility] [id number] [place] [address] 29548- 6668 Jul, [place] [address] [address]- 5075 Jul, [facility] [address] [address]- 2476 Jul, [facility] [address] [address]- 8952 Jun, [facility] [id number] [place] [address] 544346- 9464 Jun, [facility] [address] [address]- 1624 Jun, [facility] [id number] [place] [address] 29088- 6549 May, [facility] [address] [address]- 6748 May, Bipolar I disorder, most recent episode (or current) mixed, moderate 296.62 [facility] [address] [address]- 6089 May, [facility] [id number] [place] [address] 01131- 5055 May, Bipolar I disorder, most recent episode (or current) mixed, moderate 296.62 and Major depressive disorder, recurrent episode, severe, specified as with psychotic behavior 296.34 [facility] [address] [address]- 6718 May, Bipolar I disorder, most recent episode (or current) mixed, moderate 296.62 [facility] [address], [place] [address]- 7222 May, [facility] [id number] [address]- 8721 Apr, [facility] [address], [place] [address]- 7701 Apr, [facility] [id number] [address]- 0676 Apr, Unspecified disorder of kidney and ureter 593.9 and Diabetes mellitus type 2, uncontrolled 250.02 [facility] [address], [place] [address]- 3509 Apr, [facility] [address], [place] [address]- 3075 Apr, [facility] [id number] [place] [address] 87719- 7928 Apr, [facility] [id number] [place] [address] 19615- 7750 Apr, [facility] [id number] [place] [address] 09509- 4691 Apr, Diabetes mellitus type II, uncontrolled 250.02 [facility] [id number] [place] [address] 77302- 4882 Apr, [facility] [id number] [place] [address] 92803- 0935 Mar, [facility] [id number] [place] [address] 50551- 0546 Mar, [facility] [address] [address]- 1480 Mar, [facility] [address], [place] [address]- 0025 Mar, Major depressive disorder, recurrent episode, severe, specified as with psychotic behavior 296.34 and Bipolar I disorder, most recent episode (or current) mixed, moderate 296.62 [facility] [id number] [place] [address] 09790- 0174 Mar, Diabetes 250.00 ; Anuria 788.5 ; Nausea and vomiting 787.01 and Diarrhea 787.91 [facility] [address] [address]- 3797 Mar, Diabetes 250.00 [facility] [id number] [address]- 1247 Mar, [facility] [address], [place] [address]- 8955 Mar, Diabetes 250.00 [facility] [address], [place] [address]- 0460 Mar, [facility] [id number] [place] [address] 91702- 9923 Mar, [facility] [address], [place] [address]- 2178 Mar, [facility] [id number] [place] [address] 00847- 4570 Mar, [facility] [address], [place] [address]- 0523 Mar, Bipolar I disorder, most recent episode (or current) mixed, moderate 296.62 and Major depressive disorder, recurrent episode, severe, specified as with psychotic behavior 296.34 [facility] [address], [place] [address]- 7378 Mar, Magnesium deficiency 275.2 ; Hypokalemia 276.8 ; Nausea & vomiting 787.01 and Diabetes mellitus type 2, uncontrolled 250.02 [facility] [address], [place] [address]- 0632 Feb, [facility] [address], [place] [address]- 1256 Feb, Bipolar I disorder, most recent episode (or current) mixed, moderate 296.62 [facility] [address], [place] [address]- 3643 Feb, Nausea and vomiting 787.01 ; Left elbow pain 719.42 ; Anuria 788.5 and Diabetes 250.00 [facility] [address], [place] [address]- 9423 Feb, [facility] [id number] [address]- 8048 Feb, Hypopotassemia 276.8 and Hypokalemia 276.8 [facility] [id number] [place] [address] 71864- 9930 Feb, Hypopotassemia 276.8 and Hypokalemia 276.8 [facility] [id number] [place] [address] 17660- 6066 Feb, Seborrheic keratoses 702.19 [facility] [id number] [place] [address] 66588- 2177 Feb, Hypopotassemia 276.8 and Low magnesium levels 275.2 [facility] [id number] [place] [address] 41707- 8804 January, [facility] [id number] [place] [address] 83092- 5600 January, [facility] [id number] [place] [address] 36952- 9584 January, [facility] [id number] [place] [address] 06191- 7337 January, Scalp lesion 709.9 [facility] [id number] [place] [address] 19819- 7458 January, [facility] [id number] [place] [address] 70564- 1465 Dec, Tear of medial cartilage or meniscus of knee, current 836.0 and 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 [facility] [address], [place] [address]- 8526 Dec, [facility] [id number] [place] [address] 75934- 6167 Dec, [facility] [address], [place] [address]- 2924 Dec, Squamous cell carcinoma, 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 [facility] [address] [id number] [place] [address]- 6474 14 Dec, 2014 [facility] [place] [facility] [address] [id number] [place] [address]- 6967 13 Dec, 2014 [facility] [place] [facility] [address] [id number] [place] [address]- 1071 Nov, [facility] [place] [facility] [address] [id number] [place] [address]- 7973 Nov, [facility] [place] [facility] [address] [id number] [place] [address]- 3868 Nov, [facility] [place] [facility] [address] [id number] [place] [address]- 8405 Nov, [facility] [place] [facility] [address] [id number] [place] [address]- 1380 Nov, [facility] [place] [facility] [address] [id number] [place] [address]- 6975 Nov, [facility] [place] [facility] [address] [id number] [place] [address]- 5167 Nov, [facility] [place] [facility] [address] [id number] [place] [address]- 3456 Nov, [facility] [place] [facility] [address] [id number] [place] [address]- 0740 Nov, [facility] [place] [facility] [address] [id number] [place] [address]- 8776 Nov, [facility] [place] [facility] [address] [id number] [place] [address]- 9958 Nov, [facility] [place] [facility] [address] [id number] [place] [address]- 6396 Nov, [facility] [place] [facility] [address] [id number] [place] [address]- 6312 Oct, [facility] [place] [facility] [address] [id number] [place] [address]- 6560 Oct, 2014 [facility] [place] [facility] [address] [id number] [place] [address]- 5983 Oct, 2014 [facility] [place] [facility] [address] [id number] [place] 1737 Oct, 2014 [facility] [place] [facility] [address] [facility] [id number] [place] [address]- 6789 Oct, 2014 [facility] [place] [facility] [address] [id number] [place] [address]- 5985 Oct, 2014 [facility] [place] [facility] [address] [id number] [place] [address]- 1498 Oct, 2014 [facility] [place] [facility] [address] [facility] [id number] [place] [address]- 8054 Oct, 2014 [facility] [place] [facility] [address] [facility] [id number] [place] [address]- 7703 Oct, 2014 [facility] [place] [facility] [address] [facility] [id number] [address]- 0957 Sep, [facility] [place] [facility] [address] [facility] [id number] [place] [address]- 3895 Sep, [facility] [place] [facility] [address] [facility] [id number] [place] [address]- 7639 Sep, [facility] [place] [facility] [address] [facility] [id number] [place] [address]- 1353 Sep, [facility] [place] [facility] [address] [facility] [id number], [place] [address]- 0696 Sep, [facility] [place] [facility] [address] [id number] [address]- 3722 Sep, [facility] [place] [facility] [address] [facility] [id number], [place] [address]- 3721 Sep, [facility] [place] [facility] [address] [facility] [id number], [place] [address]- 9119 Sep, [facility] [place] [facility] [address] [id number] [place] [address]- 7516 Sep, [facility] [place] [facility] [address] [id number] [place] [address]- 3197 Sep, [facility] [place] [facility] [address] [id number] [place] [address]- 7088 Sep, [facility] [place] [facility] [address] [id number] [place] [address]- 8785 Sep, [facility] [place] [facility] [address] [id number] [place] [address]- 4823 Sep, [facility] [place] [facility] [address] [id number] [place] [address]- 1758 Sep, [facility] [place] [facility] [address] [id number] [place] [address]- 0802 Sep, [facility] [place] [facility] [address] [id number] [place] [address]- 8839 Sep, [facility] [place] [facility] [address] [id number] [place] [address]- 0718 Aug, [facility] [place] [facility] [address] [id number] [place] [address]- 1890 Aug, [facility] [place] [facility] [address] [id number] [place] [address]- 0227 Aug, [facility] [place] [facility] [address] [id number] [place] [address]- 5754 31 Aug, 2014 [facility] [place] [facility] [address] [id number] [place] [address]- 9742 Aug, [facility] [place] [facility] [address] [id number] [place] [address]- 4460 31 Aug, 2014 [facility] [place] [facility] [address] [id number] [place] [address]- 8048 17 Aug, 2014 [facility] [place] [facility] [address] [id number] [place] [address]- 7416 Aug, [facility] [address] [id number] [place] [address]- 0964 Aug, [facility] [address] [id number] [place] [address]- 9137 Aug, [facility] [address] [id number] [place] [address]- 5754 Aug, [facility] [address] [place] [id number] Aug, [facility] [address] [id number] [place] [address]- 4124 Aug, [facility] [address] [id number] [place] [address]- 6861 Aug, [facility] [address] [id number] [place] [address]- 2678 Aug, [facility] [address] [id number] [place] [address]- 9746 Aug, [facility] [address] [id number] [place] [address]- 1869 Aug, [facility] [address] [id number] [place] [address]- 2112 Aug, [facility] [address] [id number] [place] [address]- 4526 Aug, [facility] [place] [facility] [address] [id number] [place] [address]- 7296 Aug, [facility] [address] [id number] [place] [address]- 1462 Aug, [facility] [place] [facility] [address] [id number] [place] [address]- 2448 Aug, [facility] [address] [id number] [place] [address]- 1131 Aug, [facility] [address] [id number] [place] [address]- 3690 Aug, [facility] [place] [facility] [address] [id number] [place] [address]- 2139 Aug, [facility] [place] [facility] [address] [id number] [place] [address]- 8174 Aug, [facility] [place] [facility] [address] [facility] [id number] [place] [address]- 6182 Aug, [facility] [place] [facility] [address] [id number] [place] [address]- 8368 Aug, [facility] [place] [facility] [address] [id number] [place] [address]- 4793 Aug, [facility] [place] [facility] [address] [id number] [place] [address]- 2624 Aug, [facility] [place] [facility] [address] [facility] [id number] [place] [address]- 7779 Jul, [facility] [place] [facility] [address] [id number] [place] [address]- 9207 Jul, [facility] [place] [facility] [address] [facility] [id number] [place] [address]- 5982 Jul, [facility] [place] [facility] [address] [facility] [id number] [place] [address]- 5102 Jul, [facility] [place] [facility] [address] [id number] [place] [address]- 1246 Jul, [facility] [place] [facility] [address] [id number] [place] [address]- 3495 Jul, [facility] [place] [facility] [address] [id number] [place] [address]- 6169 Jul, [facility] [place] [facility] [address] [id number] [place] [address]- 0380 Jul, [facility] [place] [facility] [address] [facility] [id number] [place] [address]- 6426 Jul, [facility] [place] [facility] [address] [id number] [place] [address]- 5208 Jul, [facility] [place] [facility] [address] [id number] [place] [address]- 3024 Jun, [facility] [place] [facility] [address] [id number] [place] [address]- 5535 Jun, [facility] [place] [facility] [address] [id number] [place] [address]- 4468 Jun, [facility] [place] [facility] [address] [id number] [place] [address]- 0198 Jun, [facility] [place] [facility] [address] [id number] [place] [address]- 5347 Jun, [facility] [place] [facility] [address] [id number] [place] [address]- 9306 Jun, [facility] [place] [facility] [address] [id number] [place] [address]- 4938 Jun, [facility] [place] [facility] [address] [id number] [place] [address]- 8151 Jun, [facility] [place] [facility] [address] [id number] [place] [address]- 6494 Jun, [facility] [place] [facility] [address] [id number] [place] [address]- 9070 Jun, [facility] [place] [facility] [address] [id number] [place] [address]- 2083 29 May, 2013 [facility] [place] [facility] [address] [id number] [place] [address]- 4090 29 Sep, 2013 [facility] [place] [facility] [address] [id number] [place] [address]- 1391 26 May, 2013 [facility] [place] [facility] [address] [id number] [place] [address]- 4211 26 May, 2013 [facility] [place] [facility] [address] [id number] [place] [address]- 9296 17 Sep, 2013 [facility] [place] [facility] [address] [id number] [place] [address]- 6463 17 May, 2013 [facility] [place] [facility] [address] [id number] [place] [address]- 1176 15 May, 2013 [facility] [place] [facility] [address] [id number] [place] [address]- 0586 15 May, 2013 [facility] [place] [facility] [address] [id number] [place] [address]- 7882 15 May, 2013 [facility] [place] [facility] [address] [id number] [place] [address]- 0582 15 May, 2013 [facility] [place] [facility] [address] [id number] [place] [address]- 5564 10 May, 2013 [facility] [place] [facility] [address] [id number] [place] [address]- 8715 10 May, 2013 [facility] [place] [facility] [address] [id number] [place] [address]- 9433 09 May, 2013 [facility] [place] [facility] [address] [id number] [place] [address]- 2394 09 May, 2013 [facility] [place] [facility] [address] [id number] [place] [address]- 8428 04 May, 2014 [facility] [place] [facility] [address] [id number] [place] [address]- 0788 May, 2013 [facility] [place] [facility] [address] [id number] [place] [address]- 9766 Apr, [facility] [place] [facility] [address] [id number] [place] [address]- 3836 Apr, [facility] [place] [facility] [address] [id number] [place] [address]- 0184 Apr, [facility] [place] [facility] [address] [id number] [place] [address]- 3942 Apr, [facility] [place] [facility] [address] [id number] [place] [address]- 4650 Apr, [facility] [place] [facility] [address] [id number] [facility] [place] [address]- 0337 Apr, [facility] [place] [facility] [address] [id number] [place] [address]- 2137 Apr, [facility] [place] [facility] [address] [id number] [place] [address]- 5529 Apr, [facility] [place] [facility] [address] [id number] [place] [address] Apr, [facility] [place] [facility] [address] [id number] [place] [address] Apr, [facility] [place] [facility] [address] [id number] [place] [address] Apr, [facility] [place] [facility] [address] [id number] [place] [address] Apr, [facility] [place] [facility] [address] [id number] [place] [address] Apr, [facility] [place] [facility] [address] [id number] [place] [address] Apr, [facility] [place] [facility] [address] [id number] [place] [address] Apr, [facility] [place] [facility] [address] [id number] [place] [address] Mar, [facility] [place] [facility] [address] [id number] [place] [address] Mar, [facility] [place] [facility] [address] [id number] [place] [address] Mar, [facility] [place] [facility] [address] [id number] [place] [address] Mar, [facility] [place] [facility] [address] [id number] [place] [address] Mar, [facility] [place] [facility] [address] [id number] [place] [address] Mar, 2013 [facility] [place] [facility] [address] [id number] [place] [address] Mar, 2013 [facility] [place] [facility] [address] [id number] [place] [address] Mar, 2013 [facility] [place] [facility] [address] [id number] [place] [address] Mar, 2013 [facility] [place] [facility] [address] [id number] [place] [address]- [address] Mar, 2013 [facility] [place] [facility] [address] [id number] [place] [address] Mar, 2013 [facility] [place] [facility] [address] [id number] [place] [address]- [address] Mar, 2013 [facility] [place] [facility] [address] [id number] [place] [address]- [address] Mar, 2013 [facility] [place] [facility] [address] [id number] [place] [address] Mar, 2013 [facility] [place] [facility] [address] [id number] [place] [address] Mar, 2013 [facility] [place] [facility] [address] [id number] [place] [address]- [address] Mar, 2013 [facility] [place] [facility] [address] [id number] [place] [address] Mar, [facility] [place] [facility] [address] [id number] [place] [address] Mar, [facility] [place] [facility] [address] [id number] [place] [address] Feb, [facility] [place] [facility] [address] [id number] [place] [address] Feb, [facility] [place] [facility] [address] [id number] [place] [address] Feb, [facility] [place] [facility] [address] [id number] [place] [address]- [address] Feb, [facility] [place] [facility] [address] [id number] [place] [address]- [address] Feb, [facility] [place] [facility] [address] [id number] [place] [address] Feb, [facility] [place] [facility] [address] [id number] [place] [address] Feb, [facility] [place] [facility] [address] [id number] [place] [address] Feb, [facility] [place] [facility] [address] [id number] [place] [address] Feb, [facility] [place] [facility] [address] [id number] [place] [address] Feb, [facility] [place] [facility] [address] [id number] [place] [address]- [address] Feb, [facility] [place] [facility] [address] [id number] [place] [address] Feb, [facility] [place] [facility] [address] [id number] [place] [address]- [address] Feb, [facility] [place] [facility] [address] [id number] [place] [address] Feb, [facility] [place] [facility] [address] [id number] [place] [address] January, [facility] [place] [facility] [address] [id number] [place] [address] January, [facility] [place] [facility] [address] [id number] [place] [address] January, [facility] [place] [facility] [address] [id number] [place] [address] January, [facility] [place] [facility] [address] [id number] [place] [address] January, [facility] [address] [id number] [place] [address] January, [facility] [address] [id number] [place] [address] January, [facility] [address] [id number] [place] [address] January, [facility] [address] [address] [id number] [place] [address] January, [facility] [address] [id number] [place] [address] 8067 January, [facility] [address] [id number] [place] [address] 1394 January, [facility] [address] [id number] [place] [address] January, [facility] [address] [id number] [place] [address] 6[address] January, [facility] [address] [id number] [place] [address] 5476 January, [facility] [address] [id number] [place] [address] 77[address] Dec, [facility] [place] [facility] [address] [id number] [place] [address] 9[address] Dec, [facility] [address] [id number] [place] [address] 3715 Dec, [facility] [place] [facility] [address] [id number] [place] [address] 9958 Dec, [facility] [place] [facility] [address] [id number] [place] [address] 1861 Dec, [facility] [place] [facility] [address] [id number] [place] [address] 3765 Dec, [facility] [place] [facility] [address] [id number] [place] [address] 1008 Dec, [facility] [place] [facility] [address] [id number] [place] [address] 6800 Dec, [facility] [place] [facility] [address] [id number] [place] [address]- 3920 Dec, [facility] [place] [facility] [address] [id number] [place] [address]- 7775 Dec, [facility] [place] [facility] [address] [id number] [place] [address] 2696 Nov, [facility] [place] [facility] [address] [id number] [place] [address]- 5562 Nov, [facility] [place] [facility] [address] [id number] [place] [address]- 6580 Nov, [facility] [place] [facility] [address] [id number] [place] [address]- 0202 Nov, [facility] [place] [facility] [address] [id number] [place] [address]- 4737 Nov, [facility] [place] [facility] [address] [id number] [place] [address]- 8319 Nov, [facility] [place] [facility] [address] [id number] [place] [address] 8661 Nov, [facility] [place] [facility] [address] [id number], [place] [address] Nov, [facility] [place] [facility] [address] [id number] [place] [address]- 5371 Nov, [facility] [place] [facility] [address] [id number] [place] [address]- 9816 Nov, [facility] [place] [facility] [address] [id number] [place] [address]- 3497 Oct, [facility] [place] [facility] [address] [id number], [place] [address] 1687 Oct, [facility] [place] [facility] [address] [id number] [place] [address]- 9836 Oct, [facility] [place] [facility] [address] [id number] [place] [address]- 8396 Oct, [facility] [place] [facility] [address] [facility] [id number] [place] [address]- 4146 Oct, [facility] [place] [facility] [address] [id number] [place] [address]- 2761 Oct, [facility] [place] [facility] [address] [id number] [place] [address]- 5506 Oct, [facility] [place] [facility] [address] [facility] [id number] [place] [address]- 4497 Oct, [facility] [place] [facility] [address] [facility] [id number] [place] [address]- 3387 Oct, [facility] [place] [facility] [address] [facility] [id number] [place] [address]- 6414 Oct, [facility] [place] [facility] [address] [facility] [id number] [place] [address]- 3615 Oct, [facility] [place] [facility] [address] [facility] [id number] [place] [address]- 3230 Oct, [facility] [place] [facility] [address] [facility] [id number] [place] [address]- 9344 Oct, [facility] [place] [facility] [address] [facility] [id number] [place] [address]- 8083 Oct, [facility] [place] [facility] [address] [facility] [id number] [place] [address]- 8762 Sep, [facility] [place] [facility] [address] [facility] [id number] [place] [address]- 5107 Sep, [facility] [place] [facility] [address] [facility] [id number] [place] [address]- 7791 15 Sep, 2013 [facility] [place] [facility] [address] [id number] [place] [address]- 6649 15 Sep, 2013 [facility] [place] [facility] [address] [id number] [place] [address]- 5278 14 Sep, 2013 [facility] [place] [facility] [address] [id number] [place] [address]- 1738 Sep, [facility] [place] [facility] [address] [id number] [place] [address]- 2345 Sep, [facility] [place] [facility] [address] [id number] [place] [address]- 2694 Sep, [facility] [place] [facility] [address] [id number] [place] [address]- 2193 Sep, [facility] [place] [facility] [address] [id number] [place] [address]- 0116 Sep, [facility] [place] [facility] [address] [id number], [place] [address]- [address] 10 Aug, 2013 [facility] [place] [facility] [address] [id number] [place] [address]- 7794 Aug, [facility] [place] [facility] [address] [id number] [place] [address]- 1278 Jul, [facility] [place] [facility] [address] [id number], [place] [address] Jul, [facility] [place] [facility] [address] [id number], [place] [address]- 0912 Jul, [facility] [place] [facility] [address] [id number] [place] [address]- 3154 Jul, [facility] [place] [facility] [address] [id number], [place] [address]- 5863 Jul, [facility] [place] [facility] [address] [id number], [place] [address]- 3557 Jul, [facility] [place] [facility] [address] [id number] [place] [address]- 9007 Jul, [facility] [place] [facility] [address] [id number] [place] [address]- 2910 Jul, [facility] [place] [facility] [address] [id number] [place] [address]- 9815 Jul, [facility] [place] [facility] [address] [id number] [place] [address]- 2001 08 Jul, 2013 [facility] [place] [facility] [address] [id number] [place] [address]- 2104 Jul, [facility] [place] [facility] [address] [id number] [place] [address]- 1422 Jul, [facility] [place] [facility] [address] [id number] [place] [address]- 8633 Jul, [facility] [place] [facility] [address] [id number] [place] [address]- 3678 Jul, [facility] [place] [facility] [address] [id number] [place] [address]- 1295 Jul, [facility] [place] [facility] [address] [id number] [place] [address]- 0166 Jul, [facility] [place] [facility] [address] [facility] [id number] [place] [address]- 7577 Jul, [facility] [place] [facility] [address] [id number] [place] [address]- 1653 Jul, [facility] [place] [facility] [address] [id number] [place] [address]- 1311 Jul, [facility] [place] [facility] [address] [id number] [place] [address]- 9628 Jun, [facility] [place] [facility] [address] [id number] [place] [address]- 4081 Jun, [facility] [place] [facility] [address] [id number] [place] [address]- 8440 Jun, [facility] [place] [facility] [address] [id number] [place] [address]- 0770 16 Jun, 2012 [facility] [place] [facility] [address] [id number] [place] [address]- 9607 16 Jun, 2012 [facility] [place] [facility] [address] [id number] [place] 16 Jun, 2012 [facility] [place] [facility] [address] [id number] [place] [address]- 6797 10 Jun, 2012 [facility] [address] [id number] [place] [address]- 7322 10 Jun, 2012 [facility] [place] [facility] [address] [id number] [place] [address]- 5476 Jun, 2012 [facility] [address] [id number] [place] [address]- 3174 Jun, 2012 [facility] [address] [id number] [place] [address]- 3145 Jun, [facility] [place] [facility] [address] [id number] [place] [address]- 1199 26 May, 2012 [facility] [place] [facility] [address] [id number] [place] [address]- 7701 25 May, 2012 [facility] [place] [facility] [address] [id number] [place] [address]- 3158 19 Sep, 2012 [facility] [place] [facility] [address] [id number], [place] [address]- 1753 17 Sep, 2012 [facility] [place] [facility] [address] [id number] [place] [address]- 4988 11 Sep, 2012 [facility] [place] [facility] [address] [id number] [place] [address]- 6950 10 May, 2012 [facility] [place] [facility] [address] [id number], [place] [address]- 9063 09 May, 2012 [facility] [place] [facility] [address] [id number], [place] [address]- 9258 May, [facility] [place] [facility] [address] [id number] [place] [address]- 7375 Apr, [facility] [place] [facility] [address] [id number] [place] [address]- 5924 Apr, [facility] [place] [facility] [address] [id number] [place] [address]- 7845 Apr, [facility] [place] [facility] [address] [id number] [place] [address]- 1870 Apr, [facility] [place] [facility] [address] [id number] [place] [address]- 6107 Apr, [facility] [place] [facility] [address] [id number] [place] [address]- 1732 Mar, [facility] [place] [facility] [address] [id number] [place] [address]- 3752 Mar, [facility] [place] [facility] [address] [id number] [place] [address]- 6988 Mar, [facility] [place] [facility] [address] [id number] [place] [address]- 2448 Mar, [facility] [place] [facility] [address] [id number] [place] [address]- 9409 Mar, [facility] [place] [facility] [address] [id number] [place] [address]- 0556 Mar, [facility] [place] [facility] [address] [id number] [place] [address]- 1159 Mar, [facility] [place] [facility] [address] [id number] [place] [address]- 4151 Mar, [facility] [place] [facility] [address] [id number] [place] [address]- 4983 Feb, [facility] [place] [facility] [address] [id number] [place] [address]- 4378 Feb, [facility] [place] [facility] [address] [id number] [place] [address]- 1392 January, [facility] [address] [id number] [place] [address]- 1389 January, [facility] [address] [id number] [place] [address]- 6135 Dec, [facility] [address] [id number] [place] [address]- 0557 Dec, [facility] [address] [id number] [place] [address]- 7514 Nov, [facility] [address] [id number] [place] [address]- 9958 Nov, [facility] [address] [facility] [id number] [place] [address]- 3149 Nov, [facility] [address] [id number] [place] [address]- 9642 Nov, [facility] [address] [id number] [place] [address]- 2257 Oct, [facility] [id number] [place] [address]- 2903 Oct, [facility] [address] [id number] [place] [address]- 4185 Oct, [facility] [address] [facility] [id number] [place] [address]- 8711 Oct, [facility] [address] [facility] [id number] [place] [address]- 7971 16 Oct, 2012 [facility] [address] [id number] [place] [address]- 8907 14 Oct, 2012 [facility] [address] [facility] [id number] [place] [address]- 7691 08 Oct, 2012 [facility] [id number] [place] [address]- 2546 07 Oct, 2012 [facility] [address] [id number] [place] [address]- 1314 Oct, [facility] [address] [id number] [place] [address]- 2760 Sep, [facility] [address] [id number] [place] [address]- 3275 Sep, [facility] [address] [id number] [place] [address]- 7593 Sep, [facility] [address] [id number] [place] [address]- 4572 Sep, [facility] [address] [id number] [place] [address]- 9236 Sep, [facility] [address] [id number] [place] [address]- 4604 Sep, [facility] [address] [id number] [place] [address]- 2854 Sep, [facility] [address] [id number] [place] [address]- 2289 Sep, [facility] [address] [id number] [place] [address]- 4508 Aug, [facility] [address] [id number] [place] [address]- 5829 Aug, [facility] [address] [id number] [place] [address]- 5610 Aug, [facility] [address] [id number] [place] [address] Aug, [facility] [place] [facility] [address] [id number] [place] Aug, [facility] [address] [id number] [place] [address]- 5785 Aug, [facility] [place] [facility] [address] [id number] [place] [address]- 6642 Aug, [facility] [place] [facility] [address] [id number] [place] [address]- 2342 Aug, [facility] [place] [facility] [address] [id number] [place] [address]- 8582 Jul, [facility] [place] [facility] [address] [id number] [place] [address]- 0593 Jul, [facility] [place] [facility] [address] [id number] [place] [address]- 7321 Jul, [facility] [place] [facility] [address] [id number] [place] [address]- 0994 Jul, [facility] [place] [facility] [address] [id number] [place] [address]- 5850 Jul, [facility] [place] [facility] [address] [id number] [place] [address]- 3768 Jul, [facility] [place] [facility] [address] [id number] [place] [address]- 0182 Jun, [facility] [place] [facility] [address] [id number] [place] [address]- 7035 Jun, [facility] [place] [facility] [address] [facility] [id number] [place] [address]- 4142 Jun, [facility] [place] [facility] [address] [id number] [place] [address]- 1052 Jun, [facility] [place] [facility] [address] [id number] [place] [address]- 1707 Jun, [facility] [place] [facility] [address] [id number] [place] [address]- 7105 Jun, [facility] [place] [facility] [address] [id number] [place] [address]- 4787 Jun, [facility] [place] [facility] [address] [id number] [place] [address]- 6714 Jun, [facility] [place] [facility] [address] [id number] [place] [address]- 6208 10 Jun, 2012 [facility] [place] [facility] [address] [id number] [place] [address]- 0482 26 May, 2012 [facility] [place] [facility] [address] [id number] [place] [address]- 9013 24 May, 2012 [facility] [place] [facility] [address] [id number] [place] [address]- 1941 May, [facility] [place] [facility] [address] [id number] [place] [address]- 8361 Apr, [facility] [place] [facility] [address] [id number] [place] [address]- 7347 Apr, [facility] [place] [facility] [address] [id number] [place] [address]- 7611 Apr, [facility] [place] [facility] [address] [id number] [place] [address]- 0418 Apr, [facility] [place] [facility] [address] [id number] [place] [address]- 7911 Apr, [facility] [place] [facility] [address] [id number] [place] [address]- 3245 Apr, [facility] [place] [facility] [address] [id number] [place] [address]- 8427 Mar, [facility] [place] [facility] [address] [id number], [place] [address]- 7437 Mar, [facility] [place] [facility] [address] [id number] [place] [address]- 0122 Mar, [facility] [place] [facility] [address] [id number] [place] [address]- 9393 Mar, [facility] [place] [facility] [address] [id number] [place] [address]- 0771 Feb, [facility] [place] [facility] [address] [id number] [place] [address]- 9507 Feb, [facility] [place] [facility] [address] [id number] [place] [address]- 7413 Feb, [facility] [place] [facility] [address] [id number] [place] [address]- 3444 Feb, [facility] [place] [facility] [address] [id number] [place] [address]- 2533 Feb, [facility] [place] [facility] [address] [id number] [place] [address]- 2237 January, [facility] [place] [facility] [address] [id number] [place] [address]- 3271 January, [facility] [place] [facility] [address] [id number] [place] [address]- 9669 January, [facility] [address] [id number] [place] [address]- 3702 January, [facility] [place] [facility] [address] [id number] [place] [address]- 9686 January, [facility] [place] [facility] [address] [id number] [place] [address]- 9047 January, [facility] [place] [facility] [address] [id number] [place] [address]- 5958 Dec, [facility] [place] [facility] [address] [id number] [place] [address]- 3946 Dec, [facility] [place] [facility] [address] [id number] [place] [address]- 6615 Dec, [facility] [place] [facility] [address] [id number] [place] [address]- 4436 Dec, [facility] [place] [facility] [address] [id number] [place] [address]- 3011 Dec, [facility] [place] [facility] [address] [id number] [place] [address]- 2947 Nov, [facility] [place] [facility] [address] [id number] [place] [address]- 8161 14 Nov, 2011 [facility] [place] [facility] [address] [id number] [place] [address]- 6876 Nov, [facility] [place] [facility] [address] [id number] [place] [address]- 3028 Nov, [facility] [place] [facility] [address] [id number] [place] [address]- 5814 29 Oct, 2011 [facility] [place] [facility] [address] [id number] [place] [address]- 4232 28 Oct, 2011 [facility] [place] [facility] [address] [id number] [place] [address]- 4467 24 Oct, 2011 [facility] [place] [facility] [address] [id number] [place] [address]- 4658 Oct, [facility] [place] [facility] [address] [id number] [place] [address]- 8963 Oct, [facility] [place] [facility] [address] [id number] [place] [address]- 3744 Sep, [facility] [place] [facility] [address] [id number] [place] [address]- 6098 Sep, [facility] [place] [facility] [address] [id number] [place] [address]- 8442 Sep, [facility] [place] [facility] [address] [id number] [place] [address] Sep, [facility] [place] [facility] [address] [id number] [place] [address] Sep, [facility] [place] [facility] [address] [id number] [place] [address] Sep, [facility] [place] [facility] [address] [id number] [place] [address] Aug, [facility] [place] [facility] [address] [id number] [place] [address] Aug, [facility] [place] [facility] [address] [id number] [place] [address] Aug, [facility] [place] [facility] [address] [id number] [place] [address] Jul, [facility] [place] [facility] [address] [id number] [place] [address] Jul, [facility] [place] [facility] [address] [id number] [place] [address] Jul, [facility] [place] [facility] [address] [id number] [place] [address] Jul, [facility] [place] [facility] [address] [id number] [place] [address] Jun, [facility] [place] [facility] [address] [facility] [id number] [place] [address] Jun, [facility] [place] [facility] [address] [facility] [id number] [place] [address] Jun, [facility] [place] [facility] [address] [facility] [id number] [place] [address] Jun, [facility] [place] [facility] [address] [facility] [id number] [place] [address] Jun, [facility] [place] [facility] [address] [facility] [id number] [place] [address] Jun, [facility] [place] [facility] [address] [id number] [place] [address] Mar, [facility] [place] [facility] [address] [id number] [place] [address] Dec, [facility] [place] [facility] [address] [facility] [id number] [place] [address] Dec, [facility] [place] [facility] [address] [facility] [id number] [place] [address] Nov, [facility] [place] [facility] [address] [id number] [place] [address] 16 Nov, 2010 [facility] [address] [id number] [place] [address] 10 Sep, 2010 [facility] [place] [facility] [address] [id number] [place] [address] 2546 31 Aug, 2010 [facility] [address] [id number] [place] [address] 2546 29 Aug, 2010 [facility] [place] [facility] [address] [id number] [place] [address] 2546 29 Aug, 2010 [facility] [address] [id number] [place] [address] 29 Aug, 2010 [facility] [place] [facility] [address] [id number] [place] [address] 27 Aug, 2010 [facility] [address] [id number] [place] [address] 14 Aug, 2010 [facility] [address] [id number] [place] [address] 254 08 Aug, 2010 [facility] [place] [facility] [address] [id number] [place] [address] 2546 08 Aug, 2010 [facility] [address] [id number] [place] [address] 07 Aug, 2010 [facility] [place] [facility] [address] [id number] [place] [address] 2546 Aug, [facility] [place] [facility] [address] [id number] [place] [address] 2546 Aug, [facility] [place] [facility] [address] [id number] [place] [address] 2546 Aug, [facility] [place] [facility] [address] [id number] [place] [address] 2546 Jul, [facility] [place] [facility] [address] [id number] [place] [address] Jul, [facility] [place] [facility] [address] [id number] [place] [address] 30 Jul, 2010 [facility] [place] [facility] [address] [id number] [place] [address] Jul, [facility] [place] [facility] [address] [id number] [place] [address] 08 Jul, 2010 [facility] [place] [facility] [address] [id number] [place] [address] Jul, [facility] [place] [facility] [address] [id number] [place] [address] 24 Jun, 2010 [facility] [place] [facility] [address] [id number] [place] [address] Jun, [facility] [place] [facility] [address] [id number] [place] [address] Jun, [facility] [place] [facility] [address] [id number], [place] [address] Jun, [facility] [place] [facility] [address] [id number] [place] [address] 16 Apr, 2010 [facility] [place] [facility] [address] [id number], [place] [address] Mar, [facility] [place] [facility] [address] [id number], [place] [address] Feb, [facility] [place] [facility] [address] [id number], [place] [address] January, [facility] [place] [facility] [address] [id number] [place] [address]- [address] 15 Dec, 2009 [facility] [place] [facility] [address] [id number], [place] [address] 11 Nov, 2009 [facility] [place] [facility] [address] [id number] [place] [address] 31 Aug, 2009 [facility] [place] [facility] [address] [facility] [id number], [place] [address] Aug, [facility] [address] [facility] [id number] [place] [address] Aug, [facility] [address] [facility] [id number], [place] [address] Jul, [facility] [address] [facility] [id number], [place] [address] Jul, [facility] [address] [facility] [id number], [place] [address] 2546 Jul, [facility] [address] [facility] [id number] [place] [address]- 79[address] Jun, [facility] [address] [facility] [id number], [place] [address] Jun, [facility] [address] [facility] [id number], [place] [address]- [address] Jun, [facility] [address] [facility] [id number], [place] [address] Jun, [facility] [address] [facility] [id number], [place] [address] Jun, [facility] [address] [id number], [place] [address] Jun, [facility] [address] [id number], [place] [address] Apr, [facility] [address] [id number], [place] [address] Apr, [facility] [address] [id number], [place] [address] Feb, [facility] [address] [id number], [place] [address] January, [facility] [address] [id number], [place] [address] Dec, IMMUNIZATIONS No Known Immunizations SOCIAL HISTORY Never Assessed REASON FOR VISIT [id number] PLAN OF CARE Activity Details Follow Up 2 Weeks Reason:depression VITAL SIGNS MEDICATIONS Unknown Medications RESULTS No Results PROCEDURES Procedure Date Ordered Result Body Site [facility] VISIT MENTAL HEALTH ESTAB PT March 26, 2018 Psychotherapy, patient &/family, 45 minutes, established patient March 26, 2018 INSTRUCTIONS MEDICATIONS ADMINISTERED No Known [...] 2009 Surgical History colonoscopy 2009 ([place]), 2013 ([place]) Surgical History heart cath: CAD w/ PTCA [...] inability to urinate 09/16/15 Hospitalization History [facility] early Hospitalization History hyperkalemia 10/2017 Hospitalization History fluid in lung
[2018-08-08 14:00] VITALS: BP 177/64
--- OUTSIDE RECORDS SUMMARY | 2018-08-08 14:01 | XMS REPORT ---
Author Author ROSELINE LUIS Organization [facility] Address [address] [place] [address] Care Team Providers Care Office Administrative Assistant Name Role Phone ROSELINE LUIS Unavailable PROBLEMS Type Condition ICD9-CM Code NFB70-EA Code Onset Dates Condition Status SNOMED Code Problem Chronic lymphocytic leukemia C91.10 Active 03406423 Problem Lymphocytosis D72.820 Active 24378272 Problem Eye exam abnormal R93.8 Active 496100530 Problem Eustachian tube dysfunction, unspecified laterality H69.80 Active 94633986 Problem Essential hypertension I10 Active 44929250 Problem Dysuria R30.0 Active 64212527 Problem Diabetic polyneuropathy associated with type 2 diabetes mellitus E11.42 Active 18649321 Problem Cough R05 Active 59408408 Problem Polyneuropathy associated with underlying disease G63 Active 359363521 Problem Retinal edema H35.81 Active 2648997 Problem Bilateral primary osteoarthritis of knee M17.0 Active 517465815 Problem Primary osteoarthritis of right knee M17.11 Active 256256010120617 Problem Pure hypercholesterolemia E78.00 Active 884159540 Problem DM neuro manif type II E11.49 Active 82317820 Problem Benign prostatic hyperplasia with lower urinary tract symptoms, unspecified morphology N40.1 Active 597700387 Problem Hypokalemia E87.6 Active 32602751 Problem 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 Active 136045988 Problem Anemia of chronic illness D63.8 Active 650227949 Problem Bipolar disorder, in partial remission, most recent episode depressed F31.75 Active 89842303 Problem Falling R29.6 Active 668824038 Problem Leukocytosis D72.829 Active 603092614 Problem Reactive airway disease J45.909 Active 952782778571 Problem Diabetes E11.9 Active 61218200 Problem Chronic pain G89.29 Active 69264570 Problem Anxiety F41.9 Active 11725093 Problem Morbid obesity E66.01 Active 611664278 Problem Bipolar I disorder, most recent episode (or current) mixed, moderate F31.62 Active 00072054 Problem Insomnia, unspecified type G47.00 Active 918534077 ALLERGIES No Information ENCOUNTERS Encounter Location Date Diagnosis [place] [id number] [place] [address] 56377- 9654 Jun, [place] [id number] [place] [address] 51862- 0477 Apr, [place] [address] 79530- 2650 Apr, Chronic pain G89.29 [place] [address] 94274- 5585 Apr, Primary osteoarthritis of right knee M17.11 [place] [address] 00556- 6329 Mar, [place] [address] 28617- 3325 Mar, BMI 50.0-59.9, adult Z68.43 and Bipolar disorder, in partial remission, most recent episode depressed F31.75 [place] [address] 64052- 2348 Mar, Diabetes E11.9 ; Pure hypercholesterolemia E78.00 ; Essential hypertension I10 ; Nausea with vomiting, unspecified R11.2 and Headache, unspecified headache type R51 [place] [id number] [place] [address] 82363- 0464 Mar, Bipolar I disorder, most recent episode (or current) mixed, moderate F31.62 [place] [id number] [place] [address] 48004- 6956 Mar, Bipolar I disorder, most recent episode (or current) mixed, moderate F31.62 [place] [id number] [place] [address] 45647- 5221 Mar, Chronic pain G89.29 [place] [address] 98435- 6291 Mar, Bipolar I disorder, most recent episode (or current) mixed, moderate F31.62 [facility] [address] [place] [address] 51647- 4642 Feb, Bipolar I disorder, most recent episode (or current) mixed, moderate F31.62 [facility] [address] [address]- 4182 Feb, Chronic pain G89.29 [facility] [id number] [place] [address] 18349- 3129 Feb, Decubitus ulcer of right foot, stage 3 L89.893 and BMI 50.0- 59.9, adult Z68.43 [place] [address] [address]- 4563 Feb, Bipolar I disorder, most recent episode (or current) mixed, moderate F31.62 [facility] [id number] [place] [address] 43970- 8273 Feb, [facility] [id number] [place] [address] 71828- 1991 January, [facility] [id number] [place] [address] 75949- 3769 January, Chronic pain G89.29 [facility] [address], [place] [address]- 5064 January, Bipolar I disorder, most recent episode (or current) mixed, moderate F31.62 [facility] [address] [address]- 0596 January, Bipolar I disorder, most recent episode (or current) mixed, moderate F31.62 [facility] [address], [place] [address]- 2180 Dec, Bipolar I disorder, most recent episode (or current) mixed, moderate F31.62 and BMI 50.0-59.9, adult Z68.43 [place] [id number] [place] [address] 45354- 9463 Dec, Bipolar I disorder, most recent episode (or current) mixed, moderate F31.62 [place] [id number] [place] [address] 76053- 1319 Dec, Chronic pain G89.29 [place] [address] 93535- 8451 Dec, DM neuro manif type II E11.49 ; Right flank pain R10.9 ; prison 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 Z79.891 ; Encounter for medication monitoring Z51.81 and BMI 50.0-59.9, adult Z68.43 [place] [id number] [place] [address] 09679- 7414 Dec, Bipolar I disorder, most recent episode (or current) mixed, moderate F31.62 [place] [address] 52363- 8017 Nov, Bipolar I disorder, most recent episode (or current) mixed, moderate F31.62 [place] [address] 72288- 6608 Nov, Chronic pain G89.29 [place] [id number] [place] [address] 81292- 2085 Nov, Bipolar I disorder, most recent episode (or current) mixed, moderate F31.62 [place] [id number] [place] [address] 50306- 2614 Nov, Hypokalemia E87.6 [place] [address] 87256- 0349 Nov, Bipolar I disorder, most recent episode (or current) mixed, moderate F31.62 [place] [id number] [place] [address] 11388- 8360 Oct, Chronic pain G89.29 [place] [address] [place] [address]- 1329 Oct, BMI 50.0-59.9, adult Z68.43 and Bipolar I disorder, most recent episode (or current) mixed, moderate F31.62 [facility] [id number] [place] [address] 77225- 5015 Oct, Bipolar I disorder, most recent episode (or current) mixed, moderate F31.62 [facility] [id number] [place] [address] 85145- 4155 Oct, [facility] [address] 78849- 3016 Oct, Hypokalemia E87.6 [place] [id number] [place] [address] 36869- 7090 Oct, DM neuro manif type II E11.49 [facility] [id number] [place] [address] 38698- 7397 Oct, Bipolar I disorder, most recent episode (or current) mixed, moderate F31.62 [place] [id number] [place] [address] 28501- 5579 Oct, Bipolar I disorder, most recent episode (or current) mixed, moderate F31.62 [facility] [id number] [place] [address] 09211- 0486 14 Oct, 2017 Hyperkalemia E87.5 ; Falling R29.6 ; BMI 50.0-59.9, adult Z68.43 and Acute left ankle pain M25.572 [facility] [id number] [place] [address] 52648- 0666 Oct, DM neuro manif type II E11.49 [facility] [id number] [place] [address] 99040- 4101 Oct, [facility] [id number] [place] [address] 33555- 3276 Sep, Chronic pain G89.29 [place] [id number] [place] [address] 10415- 0136 Sep, [place] [id number] [place] [address] 36409- 0883 Sep, Bilateral primary osteoarthritis of knee M17.0 [place] [address] 21454- 8244 Sep, Generalized edema R60.1 [place] [id number] [place] [address] 48773- 8470 Sep, Bipolar I disorder, most recent episode (or current) mixed, moderate F31.62 [place] [address] 69167- 7944 Sep, Hypoxia R09.02 ; Other hypervolemia E87.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 ; Anemia of chronic illness D63.8 and BMI 50.0- 59.9, adult Z68.43 [place] [id number] [place] [address] 53749- 7622 Sep, [place] [id number] [place] [address] 72931- 8050 Sep, Bipolar I disorder, most recent episode (or current) mixed, moderate F31.62 [place] [id number] [place] [address] 10755- 0229 Aug, Chronic pain G89.29 [place] [id number] [place] [address] 39225- 8856 Aug, Generalized edema R60.1 [place] [id number] [place] [address] 59308- 6480 Aug, [place] [id number] [place] [address] 26572- 2001 Aug, [place] [address], [place] [address]- 4023 14 Aug, 2017 Bipolar I disorder, most recent episode (or current) mixed, moderate F31.62 [place] [address] [place] [address] 07 Aug, 2017 Bipolar I disorder, most recent episode (or current) mixed, moderate F31.62 [place] [id number] [place] [address] 62998- 2674 04 Aug, 2017 Chronic pain G89.29 [place] [id number] [place] [address] 19186- 1465 30 Jul, 2017 Bipolar I disorder, most recent episode (or current) mixed, moderate F31.62 [place] [id number] [place] [address] 46940- 4675 Jul, Bipolar I disorder, most recent episode (or current) mixed, moderate F31.62 and BMI 60.0-69.9, adult Z68.44 [place] [id number] [place] [address] 44607- 5190 16 Jul, 2017 Bipolar I disorder, most recent episode (or current) mixed, moderate F31.62 [place] [address] [place] [address] 70126- 8010 Jul, Chronic pain G89.29 [place] [id number] [place] [address] 68673- 7244 02 Jul, 2017 Bipolar I disorder, most recent episode (or current) mixed, moderate F31.62 [place] [address] [place] [address] 91023- 4263 18 Jun, 2017 Polyneuropathy associated with underlying disease G63 and Diabetes E11.9 [place] [id number] [place] [address] 05064- 5649 16 Jun, 2017 Bipolar I disorder, most recent episode (or current) mixed, moderate F31.62 [place] [id number] [place] [address] 29887- 0883 09 Jun, [address] [facility] [address] [place] [address] 706379- 5369 27 May, 2017 Bipolar I disorder, most recent episode (or current) mixed, moderate F31.62 [facility] [address] [place] [address] 06392- 5594 21 May, 2017 Bipolar I disorder, most recent episode (or current) mixed, moderate F31.62 [facility] [id number] [place] [address] 86277- 5497 20 May, 2017 Diabetic polyneuropathy associated with type [address] [facility] [id number] [place] [address] 32592- 1978 18 May, 2017 Bipolar I disorder, most recent episode (or current) mixed, moderate F31.62 [facility] [id number] [place] [address] 39019- 9871 13 May, 2017 Bipolar I disorder, most recent episode (or current) mixed, moderate F31.62 [facility] [id number] [place] [address] 77103- 1182 May, Chronic pain G89.29 [facility] [address] [place] [address] 31197- 7643 Apr, Bipolar I disorder, most recent episode (or current) mixed, moderate F31.62 [facility] [address] [place] [address] 04932- 8688 Apr, [facility] [address] [place] [address] 42787- 3358 Apr, Chronic pain G89.29 and DM neuro manif type II E11.49 [facility] [address] [place] [address] 50354- 9872 Apr, [facility] [id number] [place] [address] 26087- 9950 Apr, Bipolar I disorder, most recent episode (or current) mixed, moderate F31.62 [facility] [address] [place] [address] 26065- 1056 Apr, Chronic pain G89.29 [facility] [id number] [place] [address] 06002- 1556 Apr, Iliotibial band syndrome, left M76.32 [facility] [id number] [place] [address] 146764- 9796 Apr, Bipolar I disorder, most recent episode (or current) mixed, moderate F31.62 [facility] [id number] [place] [address] 17953- 4981 Mar, Bipolar I disorder, most recent episode (or current) mixed, moderate F31.62 [facility] [id number] [place] [address] 69016- 3827 Mar, Bipolar I disorder, most recent episode (or current) mixed, moderate F31.62 [facility] [address] [place] [address] 24787- 2062 Mar, [facility] [id number] [place] [address] 95722- 2270 Mar, Bipolar I disorder, most recent episode (or current) mixed, moderate F31.62 [facility] [address] [place] [address] 83180- 2088 Mar, Chronic pain G89.29 [facility] [id number] [place] [address] 50274- 5727 Mar, Bipolar I disorder, most recent episode (or current) mixed, moderate F31.62 [facility] [id number] [place] [address] 12316- 5166 Mar, Bipolar I disorder, most recent episode (or current) mixed, moderate F31.62 [facility] [address] [place] [address] 23155- 2267 06 Saul, 2017 Acute pain of left knee M25.562 ; Left hip pain M25.552 ; Generalized edema R60.1 and Tongue swelling R22.0 [facility] [id number] [place] [address] 72782- 2022 Mar, [facility] [id number] [place] [address] 24691- 5137 Feb, Chronic pain G89.29 [facility] [id number] [place] [address] 26482- 2793 Feb, Diabetes E11.9 [facility] [id number] [place] [address] 70521- 2314 January, Chronic pain G89.29 [facility] [id number] [place] [address] 81774- 4101 January, [place] [id number] [place] [address] 52201- 1531 January, Bipolar I disorder, most recent episode (or current) mixed, moderate F31.62 [facility] [id number] [place] [address] 47637- 5874 Dec, Bipolar I disorder, most recent episode (or current) mixed, moderate F31.62 [facility] [id number] [place] [address] 24535- 2994 Dec, Chronic pain G89.29 [facility] [id number] [place] [address] 35458- 0773 Dec, Bipolar I disorder, most recent episode (or current) mixed, moderate F31.62 [facility] [address] [place] [address] 36314- 1622 Dec, Diabetes E11.9 ; Essential hypertension I10 ; Chronic pain G89.29 and Morbid obesity E66.01 [facility] [id number] [place] [address] 39446- 7954 Dec, [facility] [id number] [place] [address] 45838- 6706 Dec, Bipolar I disorder, most recent episode (or current) mixed, moderate F31.62 [facility] [address], [place] [address] 2546 Dec, Bipolar I disorder, most recent episode (or current) mixed, moderate F31.62 [facility] [address], [place] [address]- 2496 Nov, Chronic pain G89.29 [facility] [address], [place] [address] 2546 Nov, Bipolar I disorder, most recent episode (or current) mixed, moderate F31.62 [facility] [address], [place] [address]- 5996 Nov, [facility] [address], [place] [address]- 4096 Nov, Bipolar I disorder, most recent episode (or current) mixed, moderate F31.62 [facility] [address], [place] [address]- 3282 Nov, Bipolar I disorder, most recent episode (or current) mixed, moderate F31.62 [facility] [address], [place] [address]- 4686 Nov, [facility] [address] [place] [address]- 9716 Nov, [facility] [id number], [place] [address] 2546 Nov, [facility] [address], [place] [address]- 9596 Oct, Chronic pain G89.29 [facility] [address] [address]- 7136 Oct, Bipolar I disorder, most recent episode (or current) mixed, moderate F31.62 [facility] [address] [address]- 2113 Oct, 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 [id number] [place] [address] 65457- 6516 Oct, [facility] [id number] [place] [address] 70262- 2546 Oct, Diabetes E11.9 [facility] [id number] [place] [address] 22474 2543 Oct, Bipolar I disorder, most recent episode (or current) mixed, moderate F31.62 [place] [id number] [place] [address] 09683- 8874 Sep, Chronic pain G89.29 [facility] [id number] [place] [address] 40261- 3450 Sep, Chronic pain G89.29 [facility] [id number] [place] [address] 08901- 3236 Aug, Chronic pain G89.29 [facility] [id number] [place] [address] 88631- 4386 Jul, [facility] [id number] [place] [address] 19952 254 Jul, [address].9 [facility] [address] [place] [address] 88368 2546 Jul, Chronic pain G89.29 [facility] [id number] [place] [address] 50311- 2541 Jul, Bipolar I disorder, most recent episode (or current) mixed, moderate F31.62 [facility] [id number] [place] [address] 36015- 2237 Jun, Bipolar I disorder, most recent episode (or current) mixed, moderate F31.62 [place] [id number] [place] [address] 02772- 2460 Jun, [place] [id number] [place] [address] 81198- 1411 Jun, Bipolar I disorder, most recent episode (or current) mixed, moderate F31.62 [place] [id number] [place] [address] 44067- 9429 May, Insomnia, unspecified type G47.00 [place] [id number] [place] [address] 74511- 1292 May, Bipolar I disorder, most recent episode (or current) mixed, moderate F31.62 [place] [id number] [place] [address] 88693- 0283 May, [place] [id number] [place] [address] 21065- 7440 May, Bipolar I disorder, most recent episode (or current) mixed, moderate F31.62 [place] [id number] [place] [address] 18277- 7535 May, Diabetes E11.9 and Essential hypertension I10 [place] [id number] [place] [address] 83244- 6456 Apr, Chronic pain G89.29 [place] [id number] [place] [address] 41653- 3831 Apr, Bipolar I disorder, most recent episode (or current) mixed, moderate F31.62 [place] [id number] [place] [address] 20273- 5578 Apr, [place] [id number] [place] [address] 42642- 8544 Apr, [place] [id number] [place] [address] 97049- 5556 Mar, Chronic pain G89.29 ; Headache, unspecified headache type R51 ; Neuropathy G62.9 ; Pain of right hip joint M25.551 and Essential hypertension I10 [place] [id number] [place] [address] 33892- 8330 Mar, Chronic pain G89.29 [facility] [id number] [place] [address] 54292- 2654 Mar, Bipolar I disorder, most recent episode (or current) mixed, moderate F31.62 [place] [id number] [place] [address] 97744- 4882 Feb, Bipolar I disorder, most recent episode (or current) mixed, moderate F31.62 and Insomnia, unspecified type G47.00 [place] [id number] [place] [address] 94200- 5824 Feb, Chronic pain G89.29 [place] [address] [address]- [address]99 Feb, Bipolar I disorder, most recent episode (or current) mixed, moderate F31.62 [place] [id number] [place] [address] 48561- 0018 January, Bipolar I disorder, most recent episode (or current) mixed, moderate F31.62 [place] [id number] [place] [address] 51900- 7713 January, Chronic pain G89.29 [place] [id number] [place] [address] 44330- 1487 January, Chronic pain G89.29 and Essential hypertension I10 [place] [id number] [place] [address] 67326- 6589 January, Bipolar I disorder, most recent episode (or current) mixed, moderate F31.62 [place] [id number] [place] [address] [phone]- 3660 Dec, [place] [id number] [address] Dec, [facility] [id number] [place] [address] 19815- 7770 Dec, [facility] [id number] [place] [address] 14505- 5237 Dec, [facility] [id number] [place] [address] 97854- 2776 Nov, Reactive airway disease J45.909 [facility] [id number] [place] [address] 83428- 8562 Nov, [facility] [id number] [place] [address] 12040- 0412 Nov, [facility] [address] [id number] [place] [address] 36115- 3432 Nov, [facility] [id number] [place] [address] 42380- 5169 Nov, [facility] [id number] [place] [address] 56183- 6569 Nov, Onychomycosis B35.1 ; Hammertoe M20.40 ; [place] or callus L84 and DM neuro manif type II E11.49 [facility] [id number] [place] [address] 33142- 9199 Nov, Chronic pain G89.29 ; Leukocytosis D72.[address] [facility] [id number] [place] [address] 46684- 9425 Nov, [facility] [id number] [place] [address] 82815- 0903 Oct, [address]40 [facility] [id number] [place] [address] 28404- 5521 Oct, [facility] [id number] [place] [address] 10948- 2155 Oct, [facility] [id number] [place] [address] 21358- 0524 Oct, Mastoiditis, unspecified laterality H70.90 and Type 2 diabetes mellitus with complication E11.8 [facility] [id number] [place] [address] 94776- 8094 Sep, [facility] [address] 27453- 8011 Sep, Dysuria R30.0 ; Cough R05 ; Benign prostatic hyperplasia with lower urinary tract symptoms, unspecified morphology N40.1 ; Hypokalemia E87.6 and Eustachian tube dysfunction, unspecified laterality H69.80 [facility] [id number] [place] [address] 71047- 3220 Sep, Moderate mixed bipolar I disorder F31.62 [place] [address] 85051- 4663 Sep, Hypokalemia E87.6 [facility] [address] 84750- 6842 Sep, [facility] [id number] [place] [address] 78622- 4930 Sep, Upper respiratory tract infection, unspecified type J06.9 [place] [id number] [place] [address] 01349- 0402 Aug, [facility] [id number] [place] [address] 25031- 8294 Aug, Dysuria R30.0 [facility] [id number] [place] [address] 75846- 3479 Aug, [facility] [id number] [place] [address] 25575- [address] Jul, [facility] [id number] [place] [address] 22309- 2143 Jul, [place] [address] [address]- [address] Jul, [facility] [address] [address]- [address] Jul, [facility] [address] [address]- [address] Jun, [facility] [id number] [place] [address] 570801- [address] Jun, [facility] [address] [address]- [address] Jun, [facility] [address] [place] [address] 06173- 1474 May, [facility] [address] [address]- 0307 May, Bipolar I disorder, most recent episode (or current) mixed, moderate 296.62 [facility] [address] [address]- 6302 May, [facility] [id number] [place] [address] 39986- 9715 May, Bipolar I disorder, most recent episode (or current) mixed, moderate 296.62 and Major depressive disorder, recurrent episode, severe, specified as with psychotic behavior 296.34 [facility] [address] [address]- 4595 May, Bipolar I disorder, most recent episode (or current) mixed, moderate 296.62 [facility] [address] [address]- 6882 May, [facility] [id number] [address]- [address] Apr, [facility] [address] [address]- 0449 Apr, [facility] [id number] [address]- 3989 Apr, Unspecified disorder of kidney and ureter 593.9 and Diabetes mellitus type [address], [address] [facility] [address] [address]- 1528 Apr, [facility] [address] [address]- [address], [facility] [id number] [place] [address] 88043- [address]23 Apr, [facility] [id number] [place] [address] 46769- 5195 Apr, [facility] [id number] [place] [address] 74898- 3935 Apr, Diabetes mellitus type II, uncontrolled 250.02 [facility] [id number] [place] [address] 62223- 4654 Apr, [facility] [id number] [place] [address] 13427- 1801 Mar, [facility] [id number] [place] [address] 37483- [address] Mar, [facility] [address], [place] [address]- 0313 Mar, [facility] [address], [place] [address]- 3350 Mar, Major depressive disorder, recurrent episode, severe, specified as with psychotic behavior 296.34 and Bipolar I disorder, most recent episode (or current) mixed, moderate 296.62 [facility] [address] [place] [address] 43934- 0378 Mar, Diabetes 250.00 ; Anuria 788.5 ; Nausea and vomiting 787.[address] [facility] [address], [place] [address]- 3471 Mar, Diabetes 250.00 [facility] [id number] [address]- 6450 Mar, [facility] [address], [place] [address]- 2989 Mar, Diabetes 250.00 [facility] [address], [place] [address]- 6740 Mar, [facility] [id number] [place] [address] 74367- [address] Mar, [facility] [address], [place] [address]- 9844 Mar, [facility] [id number] [place] [address] 96854- 0202 Mar, [facility] [address] [address]- 2090 Mar, Bipolar I disorder, most recent episode (or current) mixed, moderate 296.62 and Major depressive disorder, recurrent episode, severe, specified as with psychotic behavior 296.34 [facility] [address], [place] [address]- 3322 Mar, Magnesium deficiency 275.2 ; Hypokalemia 276.8 ; Nausea & vomiting 787.01 and Diabetes mellitus type [address], [address] [facility] [address], [place] [address]- 2911 Feb, [facility] [address], [place] [address]- 8444 Feb, Bipolar I disorder, most recent episode (or current) mixed, moderate 296.62 [facility] [address], [place] [address]- 5135 Feb, Nausea and vomiting 787.01 ; Left elbow pain 719.42 ; Anuria 788.[address] [facility] [address], [place] [address]- 3885 Feb, [facility] [id number] [address]- 2139 Feb, Hypopotassemia 276.[address] [facility] [id number] [place] [address] 29582- 1711 Feb, Hypopotassemia 276.[address] [facility] [id number] [place] [address] 25585- 0107 Feb, Seborrheic keratoses 702.19 [facility] [id number] [place] [address] 81296- 1750 Feb, Hypopotassemia 276.8 and Low magnesium levels 275.2 [facility] [id number] [place] [address] 55189- 1848 January, [facility] [id number] [place] [address] 68426- 39[address] January, [facility] [id number] [place] [address] 33281- 3373 January, [facility] [id number] [place] [address] 94602- 7452 January, Scalp lesion 709.9 [facility] [id number] [place] [address] 45085- 0256 January, [facility] [id number] [place] [address] 48847- 6648 Dec, Tear of medial cartilage or meniscus of knee, current 836.0 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 [facility] [address], [place] [address]- 9271 Dec, [facility] [id number] [place] [address] 66530- 6079 Dec, [facility] [address], [place] [address]- 6464 Dec, Squamous cell carcinoma, 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 [facility] [address] [id number] [place] [address]- 6430 14 Dec, 2014 [facility] [place] [facility] [address] [id number] [place] [address]- 0477 13 Dec, 2014 [facility] [place] [facility] [address] [id number] [place] [address]- 5425 Nov, [facility] [place] [facility] [address] [id number] [place] [address]- 5812 Nov, [facility] [place] [facility] [address] [id number] [place] [address]- 2343 Nov, [facility] [place] [facility] [address] [id number] [place] [address]- 9568 Nov, [facility] [place] [facility] [address] [id number] [place] [address]- 2250 Nov, [facility] [place] [facility] [address] [id number] [place] [address]- 9544 Nov, [facility] [place] [facility] [address] [id number] [place] [address]- 6108 Nov, [facility] [place] [facility] [address] [id number] [place] [address]- 4528 Nov, [facility] [place] [facility] [address] [id number] [place] [address]- 8503 Nov, [facility] [place] [facility] [address] [id number] [place] [address]- 0629 Nov, [facility] [place] [facility] [address] [id number] [place] [address]- 2048 Nov, [facility] [place] [facility] [address] [id number] [place] [address]- 1799 Nov, [facility] [place] [facility] [address] [id number] [place] [address]- 5983 Oct, [facility] [place] [facility] [address] [id number] [place] [address]- 8125 Oct, 2014 [facility] [place] [facility] [address] [id number] [place] [address]- 9564 Oct, 2014 [facility] [place] [facility] [address] [id number] [place] 1739 Oct, 2014 [facility] [place] [facility] [address] [facility] [id number] [place] [address]- 4624 Oct, 2014 [facility] [place] [facility] [address] [id number] [place] [address]- 6805 Oct, 2014 [facility] [place] [facility] [address] [id number] [place] [address]- 4917 Oct, 2014 [facility] [place] [facility] [address] [facility] [id number] [place] [address]- 7966 Oct, 2014 [facility] [place] [facility] [address] [facility] [id number] [place] [address]- 6581 Oct, 2014 [facility] [place] [facility] [address] [facility] [id number] [address]- 1689 Sep, [facility] [place] [facility] [address] [facility] [id number] [place] [address]- 8520 Sep, [facility] [place] [facility] [address] [facility] [id number] [place] [address]- 2636 Sep, [facility] [place] [facility] [address] [facility] [id number] [place] [address]- 3089 Sep, [facility] [place] [facility] [address] [facility] [id number] [address]- 3597 Sep, [facility] [place] [facility] [address] [id number], [place] [address]- 2480 Sep, [facility] [place] [facility] [address] [facility] [id number], [place] [address]- 7360 Sep, [facility] [place] [facility] [address] [facility] [id number] [address]- 4840 Sep, [facility] [place] [facility] [address] [id number] [place] [address]- 4730 Sep, [facility] [place] [facility] [address] [id number] [place] [address]- 8375 Sep, [facility] [place] [facility] [address] [id number] [place] [address]- 7216 Sep, [facility] [place] [facility] [address] [id number] [place] [address]- 5576 Sep, [facility] [place] [facility] [address] [id number] [place] [address]- 0335 Sep, [facility] [place] [facility] [address] [id number] [place] [address]- 8547 Sep, [facility] [place] [facility] [address] [id number] [place] [address]- 9611 Sep, [facility] [place] [facility] [address] [id number] [place] [address]- 6129 Sep, [facility] [place] [facility] [address] [id number] [place] [address]- 2499 Aug, [facility] [place] [facility] [address] [id number] [place] [address]- 7456 Aug, [facility] [place] [facility] [address] [id number] [place] [address]- 7777 Aug, [facility] [place] [facility] [address] [id number] [place] [address]- 4833 31 Aug, 2014 [facility] [place] [facility] [address] [id number] [place] [address]- 1915 Aug, [facility] [place] [facility] [address] [id number] [place] [address]- 2780 31 Aug, 2014 [facility] [place] [facility] [address] [id number] [place] [address]- 7778 17 Aug, 2014 [facility] [place] [facility] [address] [id number] [place] [address]- 7786 Aug, [facility] [address] [id number] [place] [address]- 3947 Aug, [facility] [address] [id number] [place] [address]- 6098 Aug, [facility] [address] [id number] [place] [address]- 2261 Aug, [facility] [address] [place] [id number] Aug, [facility] [address] [id number] [place] [address]- 9109 Aug, [facility] [address] [id number] [place] [address]- 5403 Aug, [facility] [address] [id number] [place] [address]- 3166 Aug, [facility] [address] [id number] [place] [address]- 6548 Aug, [facility] [address] [id number] [place] [address]- 3476 Aug, [facility] [address] [id number] [place] [address]- 1200 Aug, [facility] [address] [id number] [place] [address]- 4932 Aug, [facility] [place] [facility] [address] [id number] [place] [address]- 2831 Aug, [facility] [address] [id number] [place] [address]- 8238 Aug, [facility] [place] [facility] [address] [id number] [place] [address]- 1432 Aug, [facility] [address] [id number] [place] [address]- 3381 Aug, [facility] [address] [id number] [place] [address]- 2088 Aug, [facility] [place] [facility] [address] [id number] [place] [address]- 8750 Aug, [facility] [place] [facility] [address] [id number] [place] [address]- 5472 Aug, [facility] [place] [facility] [address] [facility] [id number] [place] [address]- 7261 Aug, [facility] [place] [facility] [address] [id number] [place] [address]- 5125 Aug, [facility] [place] [facility] [address] [id number] [place] [address]- 2921 Aug, [facility] [place] [facility] [address] [id number] [place] [address]- 1566 Aug, [facility] [place] [facility] [address] [facility] [id number] [place] [address]- 3315 Jul, [facility] [place] [facility] [address] [id number] [place] [address]- 8195 Jul, [facility] [place] [facility] [address] [facility] [id number] [place] [address]- 5775 Jul, [facility] [place] [facility] [address] [facility] [id number] [place] [address]- 9965 Jul, [facility] [place] [facility] [address] [id number] [place] [address]- 5415 Jul, [facility] [place] [facility] [address] [id number] [place] [address]- 8220 Jul, [facility] [place] [facility] [address] [id number] [place] [address]- 6763 Jul, [facility] [place] [facility] [address] [id number] [place] [address]- 2119 Jul, [facility] [place] [facility] [address] [facility] [id number] [place] [address]- 3924 Jul, [facility] [place] [facility] [address] [id number] [place] [address]- 0357 Jul, [facility] [place] [facility] [address] [id number] [place] [address]- 0841 Jun, [facility] [place] [facility] [address] [id number] [place] [address]- 6966 Jun, [facility] [place] [facility] [address] [id number] [place] [address]- 8944 Jun, [facility] [place] [facility] [address] [id number] [place] [address]- 3314 Jun, [facility] [place] [facility] [address] [id number] [place] [address]- 1938 Jun, [facility] [place] [facility] [address] [id number] [place] [address]- 9410 Jun, [facility] [place] [facility] [address] [id number] [place] [address]- 0117 Jun, [facility] [place] [facility] [address] [id number] [place] [address]- 4362 Jun, [facility] [place] [facility] [address] [id number] [place] [address]- 9457 Jun, [facility] [place] [facility] [address] [id number] [place] [address]- 2210 Jun, [facility] [place] [facility] [address] [id number] [place] [address]- 7692 29 May, 2013 [facility] [place] [facility] [address] [id number] [place] [address]- 8292 29 Sep, 2013 [facility] [place] [facility] [address] [id number] [place] [address]- 3428 26 May, 2013 [facility] [place] [facility] [address] [id number] [place] [address]- 2240 26 May, 2013 [facility] [place] [facility] [address] [id number] [place] [address]- 7887 17 Sep, 2013 [facility] [place] [facility] [address] [id number] [place] [address]- 7925 17 May, 2013 [facility] [place] [facility] [address] [id number] [place] [address]- 3915 15 May, 2013 [facility] [place] [facility] [address] [id number] [place] [address]- 2326 15 May, 2013 [facility] [place] [facility] [address] [id number] [place] [address]- 0152 15 May, 2013 [facility] [place] [facility] [address] [id number] [place] [address]- 0980 15 May, 2013 [facility] [place] [facility] [address] [id number] [place] [address]- 3489 10 May, 2013 [facility] [place] [facility] [address] [id number] [place] [address]- 6096 10 May, 2013 [facility] [place] [facility] [address] [id number] [place] [address] 09 May, 2013 [facility] [place] [facility] [address] [id number] [place] [address]298 09 May, 2013 [facility] [place] [facility] [address] [id number] [place] [address] 04 May, 2014 [facility] [place] [facility] [address] [id number] [place] [address] May, 2013 [facility] [place] [facility] [address] [id number] [place] [address] Apr, [facility] [place] [facility] [address] [id number] [place] [address] Apr, [facility] [place] [facility] [address] [id number] [place] [address]207 Apr, [facility] [place] [facility] [address] [id number] [place] [address] 17[address] Apr, [facility] [place] [facility] [address] [id number] [place] [address]- 4196 Apr, [facility] [place] [facility] [address] [id number] [place] [address]- [address] Apr, [facility] [place] [facility] [address] [id number] [place] [address]- 2547 Apr, [facility] [place] [facility] [address] [id number] [place] [address]- [address] Apr, [facility] [place] [facility] [address] [id number] [place] [address] Apr, [facility] [place] [facility] [address] [id number] [place] [address]- 9995 Apr, [facility] [place] [facility] [address] [id number] [place] [address]- 4652 Apr, [facility] [place] [facility] [address] [id number] [place] [address]- [address]391 Apr, [facility] [place] [facility] [address] [id number] [place] [address]- 0700 Apr, [facility] [place] [facility] [address] [id number] [place] [address]- 4335 Apr, [facility] [place] [facility] [address] [id number] [place] [address]- 2011 Apr, [facility] [place] [facility] [address] [id number] [place] [address]- 64[address] Mar, [facility] [place] [facility] [address] [id number] [place] [address]- 3574 Mar, [facility] [place] [facility] [address] [id number] [place] [address]- 5997 Mar, [facility] [place] [facility] [address] [id number] [place] [address]- 3152 Mar, [facility] [place] [facility] [address] [id number] [place] [address]- 4411 Mar, [facility] [place] [facility] [address] [id number] [place] [address]47 Mar, 2013 [facility] [place] [facility] [address] [id number] [place] [address]- 3742 Mar, 2013 [facility] [place] [facility] [address] [id number] [place] [address]- 4279 Mar, 2013 [facility] [place] [facility] [address] [id number] [place] [address]- 1473 Mar, 2013 [facility] [place] [facility] [address] [id number] [place] [address]- 4565 Mar, 2013 [facility] [place] [facility] [address] [id number] [place] [address]- 3822 Mar, 2013 [facility] [place] [facility] [address] [id number] [place] [address]- 1388 Mar, 2013 [facility] [place] [facility] [address] [id number] [place] [address] 5860 Mar, 2013 [facility] [place] [facility] [address] [id number] [place] [address] 7155 Mar, 2013 [facility] [place] [facility] [address] [id number] [place] [address]- 6852 Mar, 2013 [facility] [place] [facility] [address] [id number] [place] [address]- 6181 Mar, 2013 [facility] [place] [facility] [address] [id number] [place] [address]- [address]791 Mar, [facility] [place] [facility] [address] [id number] [place] [address]- 3538 Mar, [facility] [place] [facility] [address] [id number] [place] [address]- [address]992 Feb, [facility] [place] [facility] [address] [id number] [place] [address]- 8251 Feb, [facility] [place] [facility] [address] [id number] [place] [address]- 2912 Feb, [facility] [place] [facility] [address] [id number] [place] [address]- 1473 Feb, [facility] [place] [facility] [address] [id number] [place] [address]- 7704 Feb, [facility] [place] [facility] [address] [id number] [place] [address]- 7684 Feb, [facility] [place] [facility] [address] [id number] [place] [address]- 5579 Feb, [facility] [place] [facility] [address] [id number] [place] [address]- 7447 Feb, [facility] [place] [facility] [address] [id number] [place] [address]- 6514 Feb, [facility] [place] [facility] [address] [id number] [place] [address]- 3660 Feb, [facility] [place] [facility] [address] [id number] [place] [address]- 299[address] Feb, [facility] [place] [facility] [address] [id number] [place] [address]- 4700 Feb, [facility] [place] [facility] [address] [id number] [place] [address]- 1489 Feb, [facility] [place] [facility] [address] [id number] [place] [address]- 7186 Feb, [facility] [place] [facility] [address] [id number] [place] [address]- 1701 January, [facility] [place] [facility] [address] [id number] [place] [address]71 January, [facility] [place] [facility] [address] [id number] [place] [address] 6580 January, [facility] [place] [facility] [address] [id number] [place] [address] 3418 January, [facility] [place] [facility] [address] [id number] [place] [address] 12[address] January, [facility] [address] [id number] [place] [address] 1632 January, [facility] [address] [id number] [place] [address] 9859 January, [facility] [address] [id number] [place] [address] 5002 January, [facility] [address] [id number] [place] [address] 4587 January, [facility] [address] [id number] [place] [address] 0448 January, [facility] [address] [id number] [place] [address] 7121 January, [facility] [address] [id number] [place] [address] 5402 January, [facility] [address] [id number] [place] [address]- 8411 January, [facility] [address] [id number] [place] [address]- 1256 January, [facility] [address] [id number] [place] [address] 3207 Dec, [facility] [place] [facility] [address] [id number] [place] [address]- 3051 Dec, [facility] [address] [id number] [place] [address]- 4489 Dec, [facility] [place] [facility] [address] [id number] [place] [address]- 3181 Dec, [facility] [place] [facility] [address] [id number] [place] [address] 3215 Dec, [facility] [place] [facility] [address] [id number] [place] [address]- 6147 Dec, [facility] [place] [facility] [address] [id number] [place] [address]- 5944 Dec, [facility] [place] [facility] [address] [id number] [place] [address]- 5561 Dec, [facility] [place] [facility] [address] [id number] [place] [address]- 0478 Dec, [facility] [place] [facility] [address] [id number] [place] [address]- 4775 Dec, [facility] [place] [facility] [address] [id number] [place] [address]- 1941 Nov, [facility] [place] [facility] [address] [id number] [place] [address]- 8301 Nov, [facility] [place] [facility] [address] [id number] [place] [address]- 5261 Nov, [facility] [place] [facility] [address] [id number] [place] [address]- 5334 Nov, [facility] [place] [facility] [address] [id number] [place] [address]- 7315 Nov, [facility] [place] [facility] [address] [id number] [place] [address]- 2347 Nov, [facility] [place] [facility] [address] [id number] [place] [address]- 1677 Nov, [facility] [place] [facility] [address] [id number] [address] 9306 Nov, [facility] [place] [facility] [address] [id number] [place] [address]- 3092 Nov, [facility] [place] [facility] [address] [id number] [place] [address]- 9486 Nov, [facility] [place] [facility] [address] [id number] [place] [address]- 4404 Oct, [facility] [place] [facility] [address] [id number] [address] 50[address] Oct, [facility] [place] [facility] [address] [id number] [place] [address]- 2926 Oct, [facility] [place] [facility] [address] [id number] [place] [address]- 3606 Oct, [facility] [place] [facility] [address] [facility] [id number] [place] [address]- 9926 Oct, [facility] [place] [facility] [address] [id number] [place] [address]- 0910 Oct, [facility] [place] [facility] [address] [id number] [place] [address]- 0366 Oct, [facility] [place] [facility] [address] [facility] [id number] [place] [address]- 7928 Oct, [facility] [place] [facility] [address] [facility] [id number] [place] [address]- 9257 Oct, [facility] [place] [facility] [address] [facility] [id number] [place] [address]- 9754 Oct, [facility] [place] [facility] [address] [facility] [id number] [place] [address]- 8406 Oct, [facility] [place] [facility] [address] [facility] [id number] [place] [address]- 3912 Oct, [facility] [place] [facility] [address] [facility] [id number] [place] [address]- 0279 Oct, [facility] [place] [facility] [address] [facility] [id number] [place] [address]- 5617 Oct, [facility] [place] [facility] [address] [facility] [id number] [place] [address]- 5021 Sep, [facility] [place] [facility] [address] [facility] [id number] [place] [address]- 2035 Sep, [facility] [place] [facility] [address] [facility] [id number] [place] [address]- 8074 15 Sep, 2013 [facility] [place] [facility] [address] [id number] [place] [address]- 0209 15 Sep, 2013 [facility] [place] [facility] [address] [id number] [place] [address]- 0288 14 Sep, 2013 [facility] [place] [facility] [address] [id number] [place] [address]- 3399 Sep, [facility] [place] [facility] [address] [id number] [place] [address]- 9373 Sep, [facility] [place] [facility] [address] [id number] [place] [address]- 2123 Sep, [facility] [place] [facility] [address] [id number] [place] [address]- 3257 Sep, [facility] [place] [facility] [address] [id number] [place] [address]- 3318 Sep, [facility] [place] [facility] [address] [id number], [place] [address]- 9421 10 Aug, 2013 [facility] [place] [facility] [address] [id number] [place] [address]- 5259 Aug, [facility] [place] [facility] [address] [id number] [place] [address]- 1358 Jul, [facility] [place] [facility] [address] [id number], [place] [address]- 6137 Jul, [facility] [place] [facility] [address] [id number], [place] [address]- 7968 Jul, [facility] [place] [facility] [address] [id number] [place] [address]- 7499 Jul, [facility] [place] [facility] [address] [id number], [place] [address]- 6915 Jul, [facility] [place] [facility] [address] [id number], [place] [address]- 4067 Jul, [facility] [place] [facility] [address] [id number] [place] [address]- 2768 Jul, [facility] [place] [facility] [address] [id number] [place] [address]- 0639 Jul, [facility] [place] [facility] [address] [id number] [place] [address]- 4553 Jul, [facility] [place] [facility] [address] [id number] [place] [address]- 7931 08 Jul, 2013 [facility] [place] [facility] [address] [id number] [place] [address]- 1818 Jul, [facility] [place] [facility] [address] [id number] [place] [address]- 9373 Jul, [facility] [place] [facility] [address] [id number] [place] [address]- 3865 Jul, [facility] [place] [facility] [address] [id number] [place] [address]- 3034 Jul, [facility] [place] [facility] [address] [id number] [place] [address]- 7144 Jul, [facility] [place] [facility] [address] [id number] [place] [address]- 8050 Jul, [facility] [place] [facility] [address] [facility] [id number] [place] [address]- 3767 Jul, [facility] [place] [facility] [address] [id number] [place] [address]- 3722 Jul, [facility] [place] [facility] [address] [id number] [place] [address]- 1487 Jul, [facility] [place] [facility] [address] [id number] [place] [address]- 2831 Jun, [facility] [place] [facility] [address] [id number] [place] [address]- 2783 Jun, [facility] [place] [facility] [address] [id number] [place] [address]- 7589 Jun, [facility] [place] [facility] [address] [id number] [place] [address]- 6938 16 Jun, 2012 [facility] [place] [facility] [address] [id number] [place] [address]- 9240 16 Jun, 2012 [facility] [place] [facility] [address] [id number] [place] 16 Jun, 2012 [facility] [place] [facility] [address] [id number] [place] [address]- 2273 10 Jun, 2012 [facility] [address] [id number] [place] [address]- 0706 10 Jun, 2012 [facility] [place] [facility] [address] [id number] [place] [address]- 1517 Jun, 2012 [facility] [address] [id number] [place] [address]- 5391 Jun, 2012 [facility] [address] [id number] [place] [address]- 1088 Jun, [facility] [place] [facility] [address] [id number] [place] [address]- 8123 26 May, 2012 [facility] [place] [facility] [address] [id number] [place] [address]- 2152 25 May, 2012 [facility] [place] [facility] [address] [id number] [place] [address]- 4567 19 Sep, 2012 [facility] [place] [facility] [address] [id number], [place] [address]- 8767 17 Sep, 2012 [facility] [place] [facility] [address] [id number] [place] [address]- 0911 11 Sep, 2012 [facility] [place] [facility] [address] [id number] [place] [address]- 0759 10 May, 2012 [facility] [place] [facility] [address] [id number] [address]- 6776 09 May, 2012 [facility] [place] [facility] [address] [id number], [place] [address]- 0414 May, [facility] [place] [facility] [address] [id number] [place] [address]- 6012 Apr, [facility] [place] [facility] [address] [id number] [place] [address]- 4164 Apr, [facility] [place] [facility] [address] [id number] [place] [address]- 7163 Apr, [facility] [place] [facility] [address] [id number] [place] [address]- 3791 Apr, [facility] [place] [facility] [address] [id number] [place] [address]- 9123 Apr, [facility] [place] [facility] [address] [id number] [place] [address]- 1715 Mar, [facility] [place] [facility] [address] [id number] [place] [address]- 3565 Mar, [facility] [place] [facility] [address] [id number] [place] [address]- 0151 Mar, [facility] [place] [facility] [address] [id number] [place] [address]- 9802 Mar, [facility] [place] [facility] [address] [id number] [place] [address]- 7136 Mar, [facility] [place] [facility] [address] [id number] [place] [address]- 7474 Mar, [facility] [place] [facility] [address] [id number] [place] [address]- 5471 Mar, [facility] [place] [facility] [address] [id number] [place] [address]- 6265 Mar, [facility] [place] [facility] [address] [id number] [place] [address]- 4761 Feb, [facility] [place] [facility] [address] [id number] [place] [address]- 4727 Feb, [facility] [place] [facility] [address] [id number] [place] [address]- 3242 January, [facility] [address] [id number] [place] [address]- 4744 January, [facility] [address] [id number] [place] [address]- 5222 Dec, [facility] [address] [id number] [place] [address]- 8406 Dec, [facility] [address] [id number] [place] [address]- 4262 Nov, [facility] [address] [id number] [place] [address]- 4080 Nov, [facility] [address] [facility] [id number] [place] [address]- 9520 Nov, [facility] [address] [id number] [place] [address]- 4272 Nov, [facility] [address] [id number] [place] [address]- 7214 Oct, [facility] [address] [id number] [place] [address]- 2000 Oct, [facility] [address] [id number] [place] [address]- 7754 Oct, [facility] [address] [facility] [id number] [place] [address]- 3318 Oct, [facility] [address] [facility] [id number] [place] [address]- 5128 16 Oct, 2012 [facility] [address] [id number] [place] [address]- 4710 14 Oct, 2012 [facility] [address] [facility] [id number] [place] [address]- 9056 08 Oct, 2012 [facility] [id number] [place] [address]- 2546 07 Oct, 2012 [facility] [address] [id number] [place] [address]- 9405 Oct, [facility] [address] [id number] [place] [address]- 8737 Sep, [facility] [address] [id number] [place] [address]- 2579 Sep, [facility] [address] [id number] [place] [address]- 3591 Sep, [facility] [address] [id number] [place] [address]- 8164 Sep, [facility] [address] [id number] [place] [address]- 0163 Sep, [facility] [address] [id number] [place] [address]- 8921 Sep, [facility] [address] [id number] [place] [address]- 6512 Sep, [facility] [address] [id number] [place] [address]- 7866 Sep, [facility] [address] [id number] [place] [address]- 0392 Aug, [facility] [address] [id number] [place] [address]- 8718 Aug, [facility] [address] [id number] [place] [address]- 9772 Aug, [facility] [address] [id number] [place] 8455 Aug, [facility] [place] [facility] [address] [id number] [place] 9388 Aug, [facility] [address] [id number] [place] [address]- 0137 Aug, [facility] [place] [facility] [address] [id number] [place] [address]- 1910 Aug, [facility] [place] [facility] [address] [id number] [place] [address]- 4959 Aug, [facility] [place] [facility] [address] [id number] [place] [address]- 8273 Jul, [facility] [place] [facility] [address] [id number] [place] [address]- 3567 Jul, [facility] [place] [facility] [address] [id number] [place] [address]- 0160 Jul, [facility] [place] [facility] [address] [id number] [place] [address]- 2291 Jul, [facility] [place] [facility] [address] [id number] [place] [address]- 4138 Jul, [facility] [place] [facility] [address] [id number] [place] [address]- 0313 Jul, [facility] [place] [facility] [address] [id number] [place] [address]- 4984 Jun, [facility] [place] [facility] [address] [id number] [place] [address]- 5087 Jun, [facility] [place] [facility] [address] [facility] [id number] [place] [address]- 8519 Jun, [facility] [place] [facility] [address] [id number] [place] [address]- 5697 Jun, [facility] [place] [facility] [address] [id number] [place] [address]- 9399 Jun, [facility] [place] [facility] [address] [id number] [place] [address]- 6068 Jun, [facility] [place] [facility] [address] [id number] [place] [address]- 3014 Jun, [facility] [place] [facility] [address] [id number] [place] [address]- 8778 Jun, [facility] [place] [facility] [address] [id number] [place] [address]- 0129 10 Jun, 2012 [facility] [place] [facility] [address] [id number] [place] [address]- 5159 26 May, 2012 [facility] [place] [facility] [address] [id number] [place] [address]- 4601 24 May, 2012 [facility] [place] [facility] [address] [id number] [place] [address]- 2246 May, [facility] [place] [facility] [address] [id number] [place] [address]- 3074 Apr, [facility] [place] [facility] [address] [id number] [place] [address]- 7249 Apr, [facility] [place] [facility] [address] [id number] [place] [address]- 3844 Apr, [facility] [place] [facility] [address] [id number] [place] [address]- 4607 Apr, [facility] [place] [facility] [address] [id number] [place] [address]- 6216 Apr, [facility] [place] [facility] [address] [id number] [place] [address]- 6873 Apr, [facility] [place] [facility] [address] [id number] [place] [address]- 7731 Mar, [facility] [place] [facility] [address] [id number], [place] [address]- 0504 Mar, [facility] [place] [facility] [address] [id number] [place] [address]- 1962 Mar, [facility] [place] [facility] [address] [id number] [place] [address]- 3264 Mar, [facility] [place] [facility] [address] [id number] [place] [address]- 3092 Feb, [facility] [place] [facility] [address] [id number] [place] [address]- 6981 Feb, [facility] [place] [facility] [address] [id number] [place] [address]- 8054 Feb, [facility] [place] [facility] [address] [id number] [place] [address]- 2760 Feb, [facility] [place] [facility] [address] [id number] [place] [address]- 9677 Feb, [facility] [place] [facility] [address] [id number] [place] [address] January, [facility] [place] [facility] [address] [id number] [place] [address] January, [facility] [place] [facility] [address] [id number] [place] [address] January, [facility] [address] [id number] [place] [address] January, [facility] [place] [facility] [address] [id number] [place] [address] January, [facility] [place] [facility] [address] [id number] [place] [address] January, [facility] [place] [facility] [address] [id number] [place] [address] Dec, [facility] [place] [facility] [address] [id number] [place] [address] Dec, [facility] [place] [facility] [address] [id number] [place] [address] Dec, [facility] [place] [facility] [address] [id number] [place] [address]- [address]286 Dec, [facility] [place] [facility] [address] [id number] [place] [address] Dec, [facility] [place] [facility] [address] [id number] [place] [address] Nov, [facility] [place] [facility] [address] [id number] [place] [address] 14 Nov, 2011 [facility] [place] [facility] [address] [id number] [place] [address] Nov, [facility] [place] [facility] [address] [id number] [place] [address] Nov, [facility] [place] [facility] [address] [id number] [place] [address] 29 Oct, 2011 [facility] [place] [facility] [address] [id number] [place] [address]- [address] 28 Oct, 2011 [facility] [place] [facility] [address] [id number] [place] [address]- [address] 24 Oct, 2011 [facility] [place] [facility] [address] [id number] [place] [address] 77[address] Oct, [facility] [place] [facility] [address] [id number] [place] [address] Oct, [facility] [place] [facility] [address] [id number] [place] [address]- [address] Sep, [facility] [place] [facility] [address] [id number] [place] [address]- [address] Sep, [facility] [place] [facility] [address] [id number] [place] [address]- 69[address] Sep, [facility] [place] [facility] [address] [id number] [place] [address]- [address] Sep, [facility] [place] [facility] [address] [id number] [place] [address]- [address] Sep, [facility] [place] [facility] [address] [id number] [place] [address]- [address] Sep, [facility] [place] [facility] [address] [id number] [place] [address]- 7801 Aug, [facility] [place] [facility] [address] [id number] [place] [address]286 Aug, [facility] [place] [facility] [address] [id number] [place] [address] 7791 Aug, [facility] [place] [facility] [address] [id number] [place] [address] Jul, [facility] [place] [facility] [address] [id number] [place] [address] Jul, [facility] [place] [facility] [address] [id number] [place] [address] Jul, [facility] [place] [facility] [address] [id number] [place] [address]- [address] Jul, [facility] [place] [facility] [address] [id number] [place] [address]- 28[address] Jun, [facility] [place] [facility] [address] [facility] [id number] [place] [address]- [address]139 Jun, [facility] [place] [facility] [address] [facility] [id number] [place] [address]- [address]64 Jun, [facility] [place] [facility] [address] [facility] [id number] [place] [address]- 8681 Jun, [facility] [place] [facility] [address] [facility] [id number] [place] [address]- [address] Jun, [facility] [place] [facility] [address] [facility] [id number] [place] [address]- [address]65 Jun, [facility] [place] [facility] [address] [id number] [place] [address]65 Mar, [facility] [place] [facility] [address] [id number] [place] [address]- 7944 Dec, [facility] [place] [facility] [address] [facility] [id number] [place] [address]- [address]205 Dec, [facility] [place] [facility] [address] [facility] [id number] [place] [address]- 6377 Nov, [facility] [place] [facility] [address] [id number] [place] [address]- [address]160 16 Nov, 2010 [facility] [address] [id number] [place] [address]- 1836 10 Sep, 2010 [facility] [place] [facility] [address] [id number] [place] [address] 2546 31 Aug, 2010 [facility] [address] [id number] [place] [address] 2546 29 Aug, 2010 [facility] [place] [facility] [address] [id number] [place] [address] 2546 29 Aug, 2010 [facility] [address] [id number] [place] [address]- [address]396 29 Aug, 2010 [facility] [place] [facility] [address] [id number] [place] [address]- 1674 27 Aug, 2010 [facility] [address] [id number] [place] [address]- [address] 14 Aug, 2010 [facility] [address] [id number] [place] [address] 2542 08 Aug, 2010 [facility] [place] [facility] [address] [id number] [place] [address] 2546 08 Aug, 2010 [facility] [address] [id number] [place] [address]- 1326 07 Aug, 2010 [facility] [place] [facility] [address] [id number] [place] [address] 2546 Aug, [facility] [place] [facility] [address] [id number] [place] [address] 2546 Aug, [facility] [place] [facility] [address] [id number] [place] [address] 2546 Aug, [facility] [place] [facility] [address] [id number] [place] [address] 2546 Jul, [facility] [place] [facility] [address] [id number] [place] [address]- 9171 Jul, [facility] [place] [facility] [address] [id number] [place] [address]- 2762 30 Jul, 2010 [facility] [place] [facility] [address] [id number] [place] [address]- 9150 Jul, [facility] [place] [facility] [address] [id number] [place] [address]- 0758 08 Jul, 2010 [facility] [place] [facility] [address] [id number] [place] [address]- 0708 Jul, [facility] [place] [facility] [address] [id number] [place] [address] 24 Jun, 2010 [facility] [place] [facility] [address] [id number] [place] [address] Jun, [facility] [place] [facility] [address] [id number] [place] [address] Jun, [facility] [place] [facility] [address] [id number][place] [address] Jun, [facility] [place] [facility] [address] [id number] [place] [address] 16 Apr, 2010 [facility] [place] [facility] [address] [id number], [place] [address] Mar, [facility] [place] [facility] [address] [id number][place] [address] Feb, [facility] [place] [facility] [address] [id number], [place] [address] January, [facility] [place] [facility] [address] [id number] [place] [address] 15 Dec, 2009 [facility] [place] [facility] [address] [id number], [place] [address] 11 Nov, 2009 [facility] [place] [facility] [address] [id number] [place] [address] 31 Aug, 2009 [facility] [place] [facility] [address] [facility] [id number][place] [address] Aug, [facility] [address] [facility] [id number] [place] [address] Aug, [facility] [address] [facility] [id number], [place] [address] Jul, [facility] [address] [facility] [id number], [place] [address] Jul, [facility] [address] [facility] [id number], [place] [address] Jul, [facility] [address] [facility] [id number] [place] [address] Jun, [facility] [address] [facility] [id number], [place] [address] Jun, [facility] [address] [facility] [id number], [place] [address] Jun, [facility] [address] [facility] [id number], [place] [address] Jun, [facility] [address] [facility] [id number], [place] [address] Jun, [facility] [address] [facility] [id number][place] [address] Jun, [facility] [address] [facility] [id number], [place] [address] Apr, [facility] [address] [facility] [id number], [place] [address] Apr, [facility] [address] [facility] [id number], [place] [address] Feb, [facility] [address] [facility] [id number], [place] [address] January, [facility] [address] [facility] [id number], [place] [address] Dec, IMMUNIZATIONS No Known Immunizations SOCIAL HISTORY Never Assessed REASON FOR VISIT Depression. PLAN OF CARE Activity Details Follow Up 2 Weeks Reason:depression VITAL SIGNS MEDICATIONS Unknown Medications RESULTS No Results PROCEDURES Procedure Date Ordered Result Body Site [facility] VISIT MENTAL HEALTH ESTAB PT March 12, 2018 Psychotherapy, patient &/family, 45 minutes, established patient March 12, 2018 INSTRUCTIONS MEDICATIONS ADMINISTERED No Known Medications MEDICAL (GENERAL) HISTORY Type Description Date Medical History type II diabetes Medical History coronary artery disease stress test 01/5015 Medical History chronic obstructive pulmonary disease (COPD) Medical History gastroesophageal reflux disease (GERD) Medical History acute renal failure Medical History erectile dysfunction Medical History hyperlipidemia Medical History obesity Medical History skin cancer-basal cell R jain (removed) Medical History Arthritis Medical History degenerative [...] 2009 Surgical History colonoscopy 2009 ([place]), 2013 ([place]) Surgical History heart 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 04/2014 Surgical History carotid US 05/2014 Surgical History resection of skin cancer from Right jain Surgical History Biopsy of Lung Bilateral/Left lung lymph node 09/2016 Surgical History Bone Marrow Biopsy Surgical History port in the right chest wall 12/2016 Hospitalization History [facility] low potassium, low magnesium, chest painina 01/2015 Hospitalization History inability to urinate 09/16/15 Hospitalization History [facility] Hospitalization History hyperkalemia 10/2017 Hospitalization History fluid in lung
--- OUTSIDE RECORDS SUMMARY | 2018-08-08 14:03 | XMS REPORT ---
Author Author NOEMI WASHBURN Organization [facility] Address [address] [place] [address] Care Team Providers Care Sales Expert Name Role Phone NOEMI WASHBURN Unavailable PROBLEMS Type Condition ICD9-CM Code [id number] Code Onset Dates Condition Status SNOMED Code Problem Chronic lymphocytic leukemia C91.10 Active 55505882 Problem Lymphocytosis D72.820 Active 08907590 Problem Eye exam abnormal R93.8 Active 708672274 Problem Eustachian tube dysfunction, unspecified laterality H69.80 Active 77055804 Problem Essential hypertension I10 Active 91077596 Problem Dysuria R30.0 Active 96345756 Problem Diabetic polyneuropathy associated with type 2 diabetes mellitus E11.42 Active 47812771 Problem Cough R05 Active 90691588 Problem Polyneuropathy associated with underlying disease G63 Active 596750566 Problem Retinal edema H35.81 Active 4699630 Problem Bilateral primary osteoarthritis of knee M17.0 Active 991121920 Problem Primary osteoarthritis of right knee M17.11 Active 868670727083423 Problem Pure hypercholesterolemia E78.00 Active 719896761 Problem DM neuro manif type II E11.49 Active 36396041 Problem Benign prostatic hyperplasia with lower urinary tract symptoms, unspecified morphology N40.1 Active 004963680 Problem Hypokalemia E87.6 Active 79971621 Problem 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 Active 980042994 Problem Anemia of chronic illness D63.8 Active 859776296 Problem Bipolar disorder, in partial remission, most recent episode depressed F31.75 Active 11632236 Problem Falling R29.6 Active 123308849 Problem Leukocytosis D72.829 Active 291454948 Problem Reactive airway disease J45.909 Active 599757313762 Problem Diabetes E11.9 Active 92063915 Problem Chronic pain G89.29 Active 08254552 Problem Anxiety F41.9 Active 77532028 Problem Morbid obesity E66.01 Active 960322674 Problem Bipolar I disorder, most recent episode (or current) mixed, moderate F31.62 Active 66322388 Problem Insomnia, unspecified type G47.00 Active 041967082 ALLERGIES No Information ENCOUNTERS Encounter Location Date Diagnosis [facility] [id number] [place] [address] 36854- 8435 Jun, [facility] [id number] [place] [address] 32391- 5618 Apr, [facility] [address] 59164- 1650 Apr, Chronic pain G89.29 [facility] [address] 49069- 1680 Apr, Primary osteoarthritis of right knee M17.11 [facility] [address] 99368- 0721 Mar, [facility] [address] 95096- 0620 Mar, BMI 50.0-59.9, adult Z68.43 and Bipolar disorder, in partial remission, most recent episode depressed F31.75 [facility] [address] 54986- 4307 Mar, Diabetes E11.9 ; Pure hypercholesterolemia E78.00 ; Essential hypertension I10 ; Nausea with vomiting, unspecified R11.2 and Headache, unspecified headache type R51 [facility] [id number] [place] [address] 39832- 4335 Mar, Bipolar I disorder, most recent episode (or current) mixed, moderate F31.62 [facility] [address] 79749- 1530 Mar, Bipolar I disorder, most recent episode (or current) mixed, moderate F31.62 [facility] [id number] [place] [address] 53931- 7664 Mar, Chronic pain G89.29 [facility] [address] [place] [address] Mar, Bipolar I disorder, most recent episode (or current) mixed, moderate F31.62 [facility] [id number] [place] [address] 67829- 1519 Feb, Bipolar I disorder, most recent episode (or current) mixed, moderate F31.62 [facility] [id number] [place] [address] 20436- 8983 Feb, Chronic pain G89.29 [facility] [address] [place] [address] 23397- 5939 Feb, Decubitus ulcer of right foot, stage 3 L89.893 and BMI 50.0- 59.9, adult Z68.43 [facility] [address] [place] [address] 68738- 3273 Feb, Bipolar I disorder, most recent episode (or current) mixed, moderate F31.62 [facility] [address] [address]- 6217 Feb, [facility] [id number] [place] [address] 07414- 7066 January, [facility] [address] [place] [address] 24559- 7335 January, Chronic pain G89.29 [facility] [address] [address]- 0509 January, Bipolar I disorder, most recent episode (or current) mixed, moderate F31.62 [facility] [address] [address]- 8832 January, Bipolar I disorder, most recent episode (or current) mixed, moderate F31.62 [facility] [address] [address]- 8139 Dec, Bipolar I disorder, most recent episode (or current) mixed, moderate F31.62 and BMI 50.0-59.9, adult Z68.43 [facility] [id number] [place] [address] 18693- 0885 Dec, Bipolar I disorder, most recent episode (or current) mixed, moderate F31.62 [facility] [id number] [place] [address] 42121- 8008 Dec, Chronic pain G89.29 [facility] [address] 447170- 5580 Dec, DM neuro manif type II E11.49 ; Right flank pain R10.9 ; intermediate 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 Z79.891 ; Encounter for medication monitoring Z51.81 and BMI 50.0-59.9, adult Z68.43 [facility] [id number] [place] [address] 31848- 6156 Dec, Bipolar I disorder, most recent episode (or current) mixed, moderate F31.62 [facility] [id number] [place] [address] 76993- 7442 Nov, Bipolar I disorder, most recent episode (or current) mixed, moderate F31.62 [facility] [id number] [place] [address] 35546- 9534 Nov, Chronic pain G89.29 [facility] [id number] [place] [address] 25225- 8676 Nov, Bipolar I disorder, most recent episode (or current) mixed, moderate F31.62 [facility] [id number] [place] [address] 14879- 5403 Nov, Hypokalemia E87.6 [facility] [address] 51117- 0307 Nov, Bipolar I disorder, most recent episode (or current) mixed, moderate F31.62 [facility] [id number] [place] [address] 26779- 5367 Oct, Chronic pain G89.29 [facility] [id number] [place] [address] 53574- 0799 Oct, BMI 50.0-59.9, adult Z68.43 and Bipolar I disorder, most recent episode (or current) mixed, moderate F31.62 [facility] [id number] [place] [address] 36561- 0067 Oct, Bipolar I disorder, most recent episode (or current) mixed, moderate F31.62 [facility] [address] 99429- 9851 Oct, [facility] [address] 51717- 4383 Oct, Hypokalemia E87.6 [facility] [id number] [place] [address] 97555- 8036 Oct, DM neuro manif type II E11.49 [facility] [address] 03817- 1009 Oct, Bipolar I disorder, most recent episode (or current) mixed, moderate F31.62 [facility] [id number] [place] [address] 18042- 5079 Oct, Bipolar I disorder, most recent episode (or current) mixed, moderate F31.62 [facility] [id number] [place] [address] 18927- 4765 14 Oct, 2017 Hyperkalemia E87.5 ; Falling R29.6 ; BMI 50.0-59.9, adult Z68.43 and Acute left ankle pain M25.572 [facility] [id number] [place] [address] 54726- 2947 Oct, DM neuro manif type II E11.49 [facility] [id number] [place] [address] 49063- 4435 Oct, [facility] [address] 44659- 2390 Sep, Chronic pain G89.29 [facility] [id number] [place] [address] 56236- 7361 Sep, [facility] [id number] [place] [address] 05154- 2450 Sep, Bilateral primary osteoarthritis of knee M17.[address] 51858- 3275 Sep, Generalized edema R60.1 [facility] [id number] [place] [address] 45197- 7387 Sep, Bipolar I disorder, most recent episode (or current) mixed, moderate F31.62 [facility] [id number] [place] [address] 96649- 0906 Sep, Hypoxia R09.02 ; Other hypervolemia E87.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 ; Anemia of chronic illness D63.8 and BMI 50.0- 59.9, adult Z68.43 [facility] [id number] [place] [address] 62101- 4224 Sep, [facility] [id number] [place] [address] 63469- 7889 Sep, Bipolar I disorder, most recent episode (or current) mixed, moderate F31.62 [facility] [id number] [place] [address] 88997- 4413 Aug, Chronic pain G89.29 [facility] [id number] [place] [address] 97018- 5755 Aug, Generalized edema R60.1 [facility] [id number] [place] [address] 12384- 5916 Aug, [facility] [address] 89695- 7202 Aug, [facility] [address] [address]- 2548 14 Aug, 2017 Bipolar I disorder, most recent episode (or current) mixed, moderate F31.62 [facility] [address] [address]- 9471 Aug, Bipolar I disorder, most recent episode (or current) mixed, moderate F31.62 [facility] [id number] [place] [address] 11812- 8519 04 Aug, 2017 Chronic pain G89.29 [facility] [id number] [place] [address] 43022- 8925 30 Jul, 2017 Bipolar I disorder, most recent episode (or current) mixed, moderate F31.62 [facility] [id number] [place] [address] 21155- 3655 Jul, Bipolar I disorder, most recent episode (or current) mixed, moderate F31.62 and BMI 60.0-69.9, adult Z68.44 [facility] [id number] [place] [address] 91765- 5562 16 Jul, 2017 Bipolar I disorder, most recent episode (or current) mixed, moderate F31.62 [facility] [address] [place] [address] 48164- 4514 06 Jul, 2017 Chronic pain G89.29 [facility] [id number] [place] [address] 62765- 9733 Jul, Bipolar I disorder, most recent episode (or current) mixed, moderate F31.62 [facility] [id number] [place] [address] 59414- 1604 Jun, Polyneuropathy associated with underlying disease G63 and Diabetes E11.9 [facility] [id number] [place] [address] 33539- 9345 16 Jun, 2017 Bipolar I disorder, most recent episode (or current) mixed, moderate F31.62 [facility] [address] [address]- 7427 09 Jun, 2017 Chronic pain G89.29 [facility] [id number] [place] [address] 955887- 0532 27 May, 2017 Bipolar I disorder, most recent episode (or current) mixed, moderate F31.62 [facility] [id number] [place] [address] 71210- 8965 21 May, 2017 Bipolar I disorder, most recent episode (or current) mixed, moderate F31.62 [facility] [id number] [place] [address] 71011- 1272 20 May, 2017 Diabetic polyneuropathy associated with type 2 diabetes mellitus E11.42 [facility] [id number] [place] [address] 05952- 9424 18 May, 2017 Bipolar I disorder, most recent episode (or current) mixed, moderate F31.62 [facility] [id number] [place] [address] 70872- 9986 13 May, 2017 Bipolar I disorder, most recent episode (or current) mixed, moderate F31.62 [facility] [id number] [place] [address] 05162- 5889 12 May, 2017 Chronic pain G89.29 [facility] [address] [place] [address] 00149- 5173 Apr, Bipolar I disorder, most recent episode (or current) mixed, moderate F31.62 [facility] [address] [place] [address] 93876- 1260 Apr, [facility] [id number] [place] [address] 61029- 3026 Apr, Chronic pain G89.29 and DM neuro manif type II E11.49 [facility] [id number] [place] [address] 84430- 2781 Apr, [facility] [id number] [place] [address] 42626- 9510 Apr, Bipolar I disorder, most recent episode (or current) mixed, moderate F31.62 [facility] [address] [place] [address] 65524- 6456 Apr, Chronic pain G89.29 [facility] [address] [place] [address] 22591- 2106 Apr, Iliotibial band syndrome, left M76.32 [facility] [id number] [place] [address] 281849- 6646 Apr, Bipolar I disorder, most recent episode (or current) mixed, moderate F31.62 [facility] [id number] [place] [address] 26508- 7755 Mar, Bipolar I disorder, most recent episode (or current) mixed, moderate F31.62 [facility] [id number] [place] [address] 52340- 1472 Mar, Bipolar I disorder, most recent episode (or current) mixed, moderate F31.62 [facility] [address] [place] [address] 06653- 8288 Mar, [facility] [id number] [place] [address] 97661- 8249 Mar, Bipolar I disorder, most recent episode (or current) mixed, moderate F31.62 [facility] [address] [place] [address] 04823- 3376 Mar, Chronic pain G89.29 [facility] [address] [place] [address] 67320- 9981 Mar, Bipolar I disorder, most recent episode (or current) mixed, moderate F31.62 [facility] [address] [place] [address] 05799- 9046 Mar, Bipolar I disorder, most recent episode (or current) mixed, moderate F31.62 [facility] [address] [place] [address] 96620- 4718 Mar, Acute pain of left knee M25.562 ; Left hip pain M25.552 ; Generalized edema R60.1 and Tongue swelling R22.0 [facility] [id number] [place] [address] 29769- 9755 Mar, [facility] [id number] [place] [address] 00176- 3770 Feb, Chronic pain G89.29 [facility] [id number] [place] [address] 15251- 8746 Feb, Diabetes E11.9 [facility] [address] 07567- 0740 January, Chronic pain G89.29 [facility] [id number] [place] [address] 45336- 5254 January, [facility] [id number] [place] [address] 06735- 3679 January, Bipolar I disorder, most recent episode (or current) mixed, moderate F31.62 [facility] [id number] [place] [address] 75658- 0970 Dec, Bipolar I disorder, most recent episode (or current) mixed, moderate F31.62 [facility] [id number] [place] [address] 15748- 2264 Dec, Chronic pain G89.29 [facility] [id number] [place] [address] 48826- 4074 Dec, Bipolar I disorder, most recent episode (or current) mixed, moderate F31.62 [facility] [id number] [place] [address] 37034- 7653 Dec, Diabetes E11.9 ; Essential hypertension I10 ; Chronic pain G89.29 and Morbid obesity E66.01 [facility] [id number] [place] [address] 46275- 9737 Dec, [facility] [address] [place] [address]- 7106 Dec, Bipolar I disorder, most recent episode (or current) mixed, moderate F31.62 [facility] [address] [address] 2546 Dec, Bipolar I disorder, most recent episode (or current) mixed, moderate F31.62 [facility] [address] [address]- 3156 Nov, Chronic pain G89.29 [facility] [address] [address] 2546 Nov, Bipolar I disorder, most recent episode (or current) mixed, moderate F31.62 [facility] [address] [address]- 8146 Nov, [facility] [address] [address]- 1846 Nov, Bipolar I disorder, most recent episode (or current) mixed, moderate F31.62 [facility] [address] [address]- 3386 Nov, Bipolar I disorder, most recent episode (or current) mixed, moderate F31.62 [facility] [address] [address]- 5966 Nov, [facility] [address] [address]- 7346 Nov, [facility] [address] [address] 2546 Nov, [facility] [address] [address]- 4916 Oct, Chronic pain G89.29 [facility] [address] [address]- 9726 Oct, Bipolar I disorder, most recent episode (or current) mixed, moderate F31.62 [facility] [id number] [place] [address] 25539- 7742 Oct, [facility] [address] [place] [address] 71420- 5386 Oct, Chronic pain G89.29 ; Diabetes E11.9 ; Anxiety F41.9 and 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 [facility] [id number] [place] [address] 77108- 2793 Oct, [facility] [id number] [place] [address] 33336- 6722 Oct, Diabetes E11.9 [facility] [id number] [place] [address] 59544- 4060 Oct, Bipolar I disorder, most recent episode (or current) mixed, moderate F31.62 [facility] [id number] [place] [address] 55494- 6511 Sep, Chronic pain G89.29 [facility] [id number] [place] [address] 29150- 1038 Sep, Chronic pain G89.29 [facility] [id number] [place] [address] 21888- 4442 Aug, Chronic pain G89.29 [facility] [address] [place] [address] 22037- 4981 Jul, [facility] [id number] [place] [address] 85702- 1760 Jul, Diabetes E11.9 [facility] [address] [place] [address] 36135- 1644 Jul, Chronic pain G89.29 [facility] [id number] [place] [address] 69520- 8548 Jul, Bipolar I disorder, most recent episode (or current) mixed, moderate F31.62 [facility] [id number] [place] [address] 56303- 8866 Jun, Bipolar I disorder, most recent episode (or current) mixed, moderate F31.62 [facility] [address] [place] [address] 98165- 6131 Jun, [facility] [address] [place] [address] 86292- 3580 Jun, Bipolar I disorder, most recent episode (or current) mixed, moderate F31.62 [facility] [address] [place] [address] 15270- 9325 May, Insomnia, unspecified type G47.00 [facility] [address] 15912- 4751 May, Bipolar I disorder, most recent episode (or current) mixed, moderate F31.62 [facility] [address] 00970- 0966 May, [facility] [address] 17584- 3786 May, Bipolar I disorder, most recent episode (or current) mixed, moderate F31.62 [facility] [address] [place] [address] 22270- 6032 May, Diabetes E11.9 and Essential hypertension I10 [facility] [address] [place] [address] 26261- 2664 Apr, Chronic pain G89.29 [facility] [address] 81734- 7618 Apr, Bipolar I disorder, most recent episode (or current) mixed, moderate F31.62 [facility] [address] [place] [address] 90312- 0307 Apr, [facility] [address] [place] [address] 93838- 8769 Apr, [facility] [address] 25484- 3680 Mar, Chronic pain G89.29 ; Headache, unspecified headache type R51 ; Neuropathy G62.9 ; Pain of right hip joint M25.551 and Essential hypertension I10 [facility] [id number] [place] [address] 55984- 2636 Mar, Chronic pain G89.29 [facility] [id number] [place] [address] 63350- 8930 Mar, Bipolar I disorder, most recent episode (or current) mixed, moderate F31.62 [facility] [address] 08756- 9563 Feb, Bipolar I disorder, most recent episode (or current) mixed, moderate F31.62 and Insomnia, unspecified type G47.00 [facility] [address] 22137- 8345 Feb, Chronic pain G89.29 [facility] [address] 47813- 3722 Feb, Bipolar I disorder, most recent episode (or current) mixed, moderate F31.62 [facility] [id number] [place] [address] 13757- 8315 January, Bipolar I disorder, most recent episode (or current) mixed, moderate F31.62 [facility] [address] [place] [address] 95257- 6950 January, Chronic pain G89.29 [facility] [address] 25900- 8018 January, Chronic pain G89.29 and Essential hypertension I10 [facility] [address] 35593- 2581 January, Bipolar I disorder, most recent episode (or current) mixed, moderate F31.62 [facility] [id number] [place] [address] 21710- 6072 Dec, [place] [address] [address]- 8064 Dec, [facility] [id number] [place] [address] 87484- 1445 Dec, [facility] [address] [address]- 8012 Dec, [facility] [id number] [place] [address] 95132- 3795 Nov, Reactive airway disease J45.909 [facility] [address] [place] [address] 51242- 6218 Nov, [facility] [id number] [place] [address] 54933- 6771 Nov, [facility] [id number] [place] [address] 62777- 7561 Nov, [facility] [id number] [place] [address] 26443- 6694 Nov, [facility] [id number] [place] [address] 63905- 2879 Nov, Onychomycosis B35.1 ; Hammertoe M20.40 ; [place] or callus L84 and DM neuro manif type II E11.49 [facility] [id number] [place] [address] 10681- 3396 Nov, Chronic pain G89.29 ; Leukocytosis D72.829 and Diabetes E11.9 [facility] [id number] [address] Nov, [facility] [id number] [place] [address] [phone]- [phone] Oct, Bronchitis J40 [facility] [id number] [place] [address] [phone]- 6482 Oct, [facility] [id number] [place] [address] 88103- 8625 Oct, [facility] [id number] [place] [address] 63719- 3575 Oct, Mastoiditis, unspecified laterality H70.90 and Type 2 diabetes mellitus with complication E11.8 [facility] [id number] [place] [address] 18628- 7009 Sep, [facility] [address] 44078- 5195 Sep, Dysuria R30.0 ; Cough R05 ; Benign prostatic hyperplasia with lower urinary tract symptoms, unspecified morphology N40.1 ; Hypokalemia E87.6 and Eustachian tube dysfunction, unspecified laterality H69.80 [facility] [id number] [place] [address] 43175- 4570 Sep, Moderate mixed bipolar I disorder F31.62 [facility] [address] 66381- 7160 Sep, Hypokalemia E87.6 [facility] [id number] [place] [address] 62472- 1466 Sep, [facility] [id number] [place] [address] [phone]- [phone] Sep, Upper respiratory tract infection, unspecified type J06.9 [facility] [facility] [id number] [place] [address] 06801- 6307 Aug, [facility] [id number] [place] [address] 17150- 3276 Aug, Dysuria R30.0 [place] [address] 9[address]12- 8297 Aug, [facility] [id number] [place] [address] 98541- 6414 Jul, [facility] [id number] [place] [address] 36333- 5086 Jul, [facility] [address] [address]- 9705 Jul, [facility] [address] [address]- 1105 Jul, [facility] [address] [address]- 7856 Jun, [facility] [id number] [place] [address] 786585- 2311 Jun, [facility] [address] [address]- 7570 Jun, [facility] [id number] [place] [address] 14526- 7080 May, [facility] [id number] [place] [address] 84350- 2638 May, Bipolar I disorder, most recent episode (or current) mixed, moderate 296.62 [facility] [address] [address]- 8300 May, [facility] [address] [place] [address] 55589- 0121 May, Bipolar I disorder, most recent episode (or current) mixed, moderate 296.62 and Major depressive disorder, recurrent episode, severe, specified as with psychotic behavior 296.34 [facility] [address] [address]- 6292 May, Bipolar I disorder, most recent episode (or current) mixed, moderate 296.62 [facility] [address] [address]- 1171 May, [facility] [address] 9959 Apr, [facility] [address] [address]- 4725 Apr, [facility] [id number] [place] [address] 68240- 7136 Apr, Unspecified disorder of kidney and ureter 593.9 and Diabetes mellitus type 2, uncontrolled 250.02 [facility] [id number] [place] [address] 42128- 9821 Apr, [facility] [id number] [place] [address] 85559- 6182 Apr, [facility] [id number] [place] [address] 44007- 5068 Apr, [facility] [id number] [place] [address] 27648- 1919 Apr, [facility] [id number] [place] [address] 96149- 6419 Apr, Diabetes mellitus type II, uncontrolled 250.02 [facility] [id number] [place] [address] 82639- 9954 Apr, [facility] [id number] [place] [address] 71187- 6929 Mar, [facility] [id number] [place] [address] 62118- 5946 Mar, [facility] [id number] [place] [address] 05379- 8403 Mar, [facility] [id number] [place] [address] 92667- 2162 Mar, Major depressive disorder, recurrent episode, severe, specified as with psychotic behavior 296.34 and Bipolar I disorder, most recent episode (or current) mixed, moderate 296.62 [facility] [id number] [place] [address] 66588- 5060 Mar, Diabetes 250.00 ; Anuria 788.5 ; Nausea and vomiting 787.01 and Diarrhea 787.91 [facility] [id number] [place] [address] 59082- 1515 Mar, Diabetes 250.00 [facility] [address] [address]- 5251 Mar, [facility] [address] [place] [address] 25575- 4821 Mar, Diabetes 250.00 [facility] [address] [address]- 3501 Mar, [facility] [id number] [place] [address] 70989- 7378 Mar, [facility] [address] [place] [address] 59547- 8275 Mar, [facility] [id number] [place] [address] 30517- 0210 Mar, [facility] [address] [place] [address] 32776- 7717 Mar, Bipolar I disorder, most recent episode (or current) mixed, moderate 296.62 and Major depressive disorder, recurrent episode, severe, specified as with psychotic behavior 296.34 [facility] [address] [place] [address] 60521- 1607 Mar, Magnesium deficiency 275.2 ; Hypokalemia 276.8 ; Nausea & vomiting 787.01 and Diabetes mellitus type 2, uncontrolled 250.02 [facility] [address] [address]- 4585 Feb, [facility] [id number] [place] [address] 05648- 3093 Feb, Bipolar I disorder, most recent episode (or current) mixed, moderate 296.62 [facility] [address] [place] [address] 72592- 1865 Feb, Nausea and vomiting 787.01 ; Left elbow pain 719.42 ; Anuria 788.5 and Diabetes 250.00 [facility] [address] [address]- 6480 Feb, [facility] [address] [address]- 1608 Feb, Hypopotassemia 276.8 and Hypokalemia 276.8 [facility] [id number] [place] [address] 13158- 6400 Feb, Hypopotassemia 276.8 and Hypokalemia 276.8 [facility] [id number] [place] [address] 34123- 3670 Feb, Seborrheic keratoses 702.19 [facility] [id number] [place] [address] 76801- 6074 Feb, Hypopotassemia 276.8 and Low magnesium levels 275.2 [facility] [address] [place] [address] 82398- 7944 January, [facility] [id number] [place] [address] 35023- 3254 January, [facility] [id number] [place] [address] 93525- 6519 January, [facility] [id number] [place] [address] 07357- 0213 January, Scalp lesion 709.9 [facility] [id number] [place] [address] 17873- 3320 January, [facility] [address] [place] [address] 40476- 0664 Dec, Tear of medial cartilage or meniscus of knee, current 836.0 and 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 [facility] [address] [address]- 1699 Dec, [facility] [id number] [place] [address] 90171- 2840 Dec, [facility] [address] [address]- 6210 Dec, Squamous cell carcinoma, 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 [facility] [place] [facility] [address] [id number] [place] [address]- 8547 14 Dec, 2014 [facility] [place] [facility] [address] [id number] [place] [address]- 5726 Dec, [facility] [place] [facility] [address] [id number] [place] [address]- 6026 Nov, [facility] [place] [facility] [address] [id number] [place] [address]- 8341 Nov, [facility] [place] [facility] [address] [id number] [place] [address]- 2421 Nov, [facility] [place] [facility] [address] [id number] [place] [address]- 9427 Nov, [facility] [place] [facility] [address] [facility] [id number] [place] [address]- 7171 Nov, [facility] [place] [facility] [address] [facility] [id number] [address]- 0344 Nov, [facility] [place] [facility] [address] [facility] [id number] [place] [address]- 3587 Nov, [facility] [place] [facility] [address] [facility] [id number] [address]- 9551 Nov, [facility] [place] [facility] [address] [facility] [id number] [address]- 9361 Nov, [facility] [place] [facility] [address] [facility] [id number] [address]- 6228 Nov, [facility] [place] [facility] [address] [facility] [id number] [place] [address]- 0545 Nov, [facility] [place] [facility] [address] [facility] [id number] [address]- 3977 Nov, [facility] [place] [facility] [address] [facility] [id number] [address]- 2379 Oct, [facility] [place] [facility] [address] [facility] [id number] [address]- 3200 Oct, 2014 [facility] [place] [facility] [address] [id number] [place] [address]- 0271 Oct, 2014 [facility] [place] [facility] [address] [facility] [id number] [place] [address]- 5796 Oct, 2014 [facility] [place] [facility] [address] [facility] [id number] [place] [address]- 8476 Oct, 2014 [facility] [place] [facility] [address] [facility] [id number] [place] [address]- 5257 Oct, 2014 [facility] [place] [facility] [address] [facility] [id number] [place] [address]- 3797 Oct, 2014 [facility] [place] [facility] [id number] [place] [address]- 3613 Oct, 2014 [facility] [place] [facility] [address] [place] [address]- 7575 Oct, [facility] [place] [facility] [address] [facility] [id number] [address]- 5282 Sep, [facility] [place] [facility] [id number] [place] [address]- 2439 Sep, [facility] [place] [facility] [id number] [address]- 6673 Sep, [facility] [place] [facility] [id number] [address]- 3001 Sep, [facility] [place] [facility] [address] [facility] [id number] [address]- 1076 Sep, [facility] [place] [facility] [address] [facility] [id number] [place] [address]- 2474 Sep, [facility] [place] [facility] [address] [facility] [id number] [place] [address]- 4897 Sep, [facility] [place] [facility] [address] [facility] [id number] [address]- 2125 Sep, [facility] [place] [facility] [address] [id number] [place] [address]- 3035 Sep, [facility] [place] [facility] [address] [id number] [place] [address]- 4233 Sep, [facility] [place] [facility] [address] [id number] [place] [address]- 6872 Sep, [facility] [place] [facility] [address] [id number] [place] [address]- 5723 Sep, [facility] [place] [facility] [address] [id number] [place] [address]- 5149 Sep, [facility] [place] [facility] [address] [id number] [place] [address]- 6868 Sep, [facility] [place] [facility] [address] [id number] [place] [address]- 4289 Sep, [facility] [place] [facility] [address] [id number] [place] [address]- 8717 Sep, [facility] [place] [facility] [address] [id number] [place] [address]- 0190 Aug, [facility] [place] [facility] [address] [id number] [place] [address]- 2166 Aug, [facility] [place] [facility] [address] [id number] [place] [address]- 7303 Aug, [facility] [place] [facility] [address] [id number] [address]- 4913 31 Aug, 2014 [facility] [place] [facility] [address] [id number] [place] [address]- 8894 31 Aug, 2014 [facility] [place] [facility] [address] [id number] [place] [address]- 5493 31 Aug, 2014 [facility] [place] [facility] [address] [id number] [place] [address]- 6392 17 Aug, 2014 [facility] [place] [facility] [address] [id number] [address]- 5565 Aug, [facility] [address] [id number] [place] [address]- 4186 Aug, [facility] [address] [id number] [place] [address]- 1776 Aug, [facility] [address] [id number] [place] [address]- 1546 Aug, [facility] [address] [place] [id number] Aug, [facility] [place] [address] [id number] [place] [address]- 7098 Aug, [facility] [address] [id number] [place] [address]- 2006 Aug, [facility] [address] [id number] [place] [address]- 6054 Aug, [facility] [address] [id number] [place] [address]- 7388 Aug, [facility] [address] [id number] [place] [address]- 5685 Aug, [facility] [address] [id number] [place] [address]- 7204 Aug, [facility] [address] [id number] [place] [address]- 5483 Aug, [facility] [place] [facility] [address] [id number] [place] [address]- 1754 Aug, [facility] [place] [facility] [address] [id number] [place] [address]- 6970 Aug, [facility] [place] [facility] [address] [id number] [place] [address]- 1042 Aug, [facility] [place] [facility] [address] [id number] [place] [address]- 5290 Aug, [facility] [address] [id number] [place] [address]- 1960 Aug, [facility] [place] [facility] [address] [id number] [place] [address]- 9753 Aug, [facility] [place] [facility] [address] [id number] [place] [address]- 5648 Aug, [facility] [place] [facility] [address] [id number] [place] 0118 Aug, [facility] [place] [facility] [address] [id number] [place] [address]- 9480 Aug, [facility] [place] [facility] [address] [id number] [place] [address]- 0649 Aug, [facility] [place] [facility] [address] [id number] [place] [address]- 0098 Aug, [facility] [place] [facility] [address] [id number] [place] [address]- 4570 Jul, [facility] [place] [facility] [address] [id number] [place] [address]- 1512 Jul, [facility] [place] [facility] [address] [id number] [place] [address]- 0232 Jul, [facility] [place] [facility] [address] [facility] [id number] [place] [address]- 7301 Jul, [facility] [place] [facility] [address] [id number] [place] [address]- 2989 Jul, [facility] [place] [facility] [address] [id number] [place] [address]- 7292 Jul, [facility] [place] [facility] [address] [id number] [place] [address]- 6042 Jul, [facility] [place] [facility] [address] [id number] [place] [address]- 6360 Jul, [facility] [place] [facility] [address] [id number] [place] [address]- 9401 Jul, [facility] [place] [facility] [address] [id number] [place] [address]- 9207 Jul, [facility] [place] [facility] [address] [id number] [place] 3295 Jun, [facility] [place] [facility] [address] [id number] [place] 4530 Jun, [facility] [place] [facility] [address] [id number] [place] [address]- 0608 Jun, [facility] [place] [facility] [address] [id number] [place] [address]- 4160 Jun, [facility] [place] [facility] [address] [id number] [place] [address]- 7880 Jun, [facility] [place] [facility] [address] [id number] [place] [address]- 9556 Jun, [facility] [place] [facility] [address] [id number] [place] [address]- 0113 Jun, [facility] [place] [facility] [address] [id number] [place] [address]- 3468 Jun, [facility] [place] [facility] [address] [id number] [place] [address]- 3084 Jun, [facility] [place] [facility] [address] [id number] [place] [address]- 6656 Jun, [facility] [place] [facility] [address] [id number] [address]- 7085 29 May, 2014 [facility] [place] [facility] [address] [id number] [place] [address]- 2926 29 May, 2014 [facility] [place] [facility] [address] [id number] [place] [address]- 7388 May, [facility] [place] [facility] [address] [id number] [place] [address]- 9165 May, [facility] [place] [facility] [address] [id number] [place] [address]- 6814 17 May, 2013 [facility] [place] [facility] [address] [id number] [place] [address] 2546 17 May, 2013 [facility] [place] [facility] [address] [id number] [place] [address] 2546 15 May, 2013 [facility] [place] [facility] [address] [id number] [place] [address] 2546 15 May, 2013 [facility] [place] [facility] [address] [id number] [place] [address] 2546 15 May, 2013 [facility] [place] [facility] [address] [id number] [place] [address]- 8226 15 May, 2013 [facility] [place] [facility] [address] [id number] [place] [address]- 0537 10 May, 2013 [facility] [place] [facility] [address] [id number] [place] [address]- 0029 10 May, 2013 [facility] [place] [facility] [address] [id number] [place] [address]- 8985 09 May, 2013 [facility] [place] [facility] [address] [id number] [place] [address] 2544 09 May, 2013 [facility] [place] [facility] [address] [id number] [place] [address]- 2544 04 May, 2014 [facility] [place] [facility] [address] [id number] [place] [address] 2545 May, 2013 [facility] [place] [facility] [address] [id number] [place] [address]- 6305 Apr, [facility] [place] [facility] [address] [id number] [place] [address]- 2543 Apr, [facility] [place] [facility] [address] [id number] [place] [address]- 0343 Apr, [facility] [place] [facility] [address] [id number] [place] [address]- 6546 Apr, [facility] [place] [facility] [address] [id number] [place] [address]- 9023 Apr, [facility] [place] [facility] [address] [id number] [facility] [address]- 1475 Apr, [facility] [place] [facility] [address] [id number] [place] [address]- 8904 Apr, [facility] [place] [facility] [address] [id number] [place] [address]- 1281 Apr, [facility] [place] [facility] [address] [id number] [place] [address]- 1362 Apr, [facility] [place] [facility] [address] [id number] [place] [address]- 2349 Apr, [facility] [place] [facility] [address] [id number] [place] [address]- 2255 Apr, [facility] [place] [facility] [address] [id number] [place] [address]- 6283 Apr, [facility] [place] [facility] [address] [id number] [place] [address]- 6622 Apr, [facility] [place] [facility] [address] [id number] [place] [address]- 2814 Apr, [facility] [place] [facility] [address] [id number] [place] [address]- 7693 Apr, [facility] [place] [facility] [address] [id number] [place] [address]- 5869 Mar, [facility] [place] [facility] [address] [id number] [place] [address]- 6200 Mar, [facility] [place] [facility] [address] [id number] [place] [address]- 6899 Mar, [facility] [place] [facility] [address] [id number] [place] [address]- 14[address] Mar, [facility] [place] [facility] [address] [id number] [place] [address] Mar, [facility] [place] [facility] [address] [id number] [place] [address] Mar, 2013 [facility] [place] [facility] [address] [id number] [place] [address] Mar, 2013 [facility] [place] [facility] [address] [id number] [place] [address] Mar, 2013 [facility] [place] [facility] [address] [id number] [place] [address] Mar, 2013 [facility] [place] [facility] [address] [id number] [place] [address] Mar, 2013 [facility] [place] [facility] [address] [id number] [place] [address]- [address] Mar, 2013 [facility] [place] [facility] [address] [id number] [place] [address]- [address] Mar, 2013 [facility] [place] [facility] [address] [id number] [place] [address]- [address] Mar, 2013 [facility] [place] [facility] [address] [id number] [place] [address]- [address] Mar, 2013 [facility] [place] [facility] [address] [id number] [place] [address]- [address] Mar, 2013 [facility] [place] [facility] [address] [id number] [place] [address] Mar, 2013 [facility] [place] [facility] [address] [id number] [place] [address] Mar, [facility] [place] [facility] [address] [id number] [place] [address]- [address] Mar, [facility] [place] [facility] [address] [id number] [place] [address] Feb, [facility] [place] [facility] [address] [id number] [place] [address] Feb, [facility] [place] [facility] [address] [id number] [place] [address]- [address] Feb, [facility] [place] [facility] [address] [id number] [place] [address]- [address] Feb, [facility] [place] [facility] [address] [id number] [place] [address]- [address] Feb, [facility] [place] [facility] [address] [id number] [place] [address]- [address] Feb, [facility] [place] [facility] [address] [id number] [place] [address]- [address] Feb, [facility] [place] [facility] [address] [id number] [place] [address]- [address] Feb, [facility] [place] [facility] [address] [id number] [place] [address]- [address] Feb, [facility] [place] [facility] [address] [id number] [place] [address]- [address] Feb, [facility] [place] [facility] [address] [id number] [place] [address] Feb, [facility] [place] [facility] [address] [id number] [place] [address]- [address] Feb, [facility] [place] [facility] [address] [id number] [place] [address]- [address] Feb, [facility] [place] [facility] [address] [id number] [place] [address]- [address] Feb, [facility] [place] [facility] [address] [id number] [place] [address] January, [facility] [place] [facility] [address] [id number] [place] [address] January, [facility] [place] [facility] [address] [id number] [place] [address]- [address] January, [facility] [place] [facility] [address] [id number] [place] [address]- [address] January, [facility] [place] [facility] [address] [id number] [place] [address]- [address] January, [facility] [place] [facility] [address] [id number] [place] [address]- [address] January, [facility] [place] [facility] [address] [id number] [place] [address] January, [facility] [place] [facility] [address] [id number] [place] [address]- 1498 January, [facility] [place] [facility] [address] [id number] [place] [address] January, [facility] [place] [facility] [address] [id number] [place] [address]- [address] January, [facility] [place] [facility] [address] [id number] [place] [address] January, [facility] [place] [facility] [address] [id number] [place] [address]- [address] January, [facility] [place] [facility] [address] [id number] [place] [address]- [address] January, [facility] [place] [facility] [address] [id number] [place] [address]- [address] January, [facility] [place] [facility] [address] [id number] [place] [address]- [address] Dec, [facility] [place] [facility] [address] [id number] [place] [address]- [address] Dec, [facility] [place] [facility] [address] [id number] [place] [address]- [address] Dec, [facility] [place] [facility] [address] [id number] [place] [address]- [address] Dec, [facility] [place] [facility] [address] [id number] [place] [address] Dec, [facility] [place] [facility] [address] [id number] [place] [address]- [address]30 Dec, [facility] [place] [facility] [address] [id number] [place] [address]- 27[address] Dec, [facility] [place] [facility] [address] [id number] [place] [address]- [address] Dec, [facility] [place] [facility] [address] [id number] [place] [address]- [address] Dec, [facility] [place] [facility] [address] [id number] [place] [address]- [address] Dec, [facility] [place] [facility] [address] [id number] [place] [address]- 4314 Nov, [facility] [place] [facility] [address] [id number] [place] [address]- [address] Nov, [facility] [place] [facility] [address] [id number] [place] [address]- [address] Nov, [facility] [place] [facility] [address] [id number] [place] [address]- [address] Nov, [facility] [place] [facility] [address] [id number] [place] [address] Nov, [facility] [place] [facility] [address] [id number] [place] [address] Nov, [facility] [place] [facility] [address] [id number] [place] [address] 2430 Nov, [facility] [place] [facility] [address] [id number] [address] Nov, [facility] [place] [facility] [address] [id number] [place] [address] Nov, [facility] [place] [facility] [address] [id number] [place] [address] 8815 Nov, [facility] [place] [facility] [address] [id number] [place] [address]- 5[address] Oct, [facility] [place] [facility] [address] [id number] [place] [address]- 5616 Oct, [facility] [place] [facility] [address] [id number] [place] [address]- 7319 Oct, [facility] [place] [facility] [address] [id number] [place] [address]- 5456 Oct, [facility] [place] [facility] [address] [id number] [place] [address]- 1662 Oct, [facility] [place] [facility] [address] [id number] [place] [address]- 8765 Oct, [facility] [place] [facility] [address] [id number] [place] [address]- 0591 Oct, [facility] [place] [facility] [address] [facility] [place] [place] [id number] [place] [address]- 6553 Oct, [facility] [place] [facility] [address] [id number] [place] [address]- 7000 Oct, [facility] [place] [facility] [address] [id number] [place] [address]- 2761 Oct, [facility] [place] [facility] [address] [facility] [place] [id number] [place] [address]- 0441 Oct, [facility] [place] [facility] [address] [facility] [place] [id number] [address]- 3542 Oct, [facility] [place] [facility] [address] [id number] [address]- 0[address] Oct, [facility] [place] [facility] [address] [id number] [place] [address]- 5014 Oct, [facility] [place] [facility] [address] [id number] [address]- 7845 Sep, [facility] [place] [facility] [address] [facility] [place] [id number] [address]- 8079 Sep, [facility] [place] [facility] [address] [id number] [address]- 3757 15 Sep, 2013 [facility] [address] [id number] [place] [address]- 3917 15 Sep, 2013 [facility] [place] [facility] [address] [id number] [place] [address]- 9744 14 Sep, 2013 [facility] [place] [facility] [address] [id number] [place] [address]- 4844 14 Sep, 2013 [facility] [place] [facility] [address] [id number] [place] [address]- 5656 14 Sep, 2013 [facility] [place] [facility] [address] [id number] [place] [address]- 5070 Sep, [facility] [place] [facility] [address] [id number] [place] [address]- [address] 08 Sep, 2013 [facility] [place] [facility] [address] [id number] [place] [address]- 2401 Sep, [facility] [place] [facility] [address] [id number] [place] [address]- 2567 Aug, [facility] [place] [facility] [address] [id number] [place] [address]- 5724 Aug, [facility] [place] [facility] [address] [id number] [place] [address]- 8503 Jul, [facility] [place] [facility] [address] [id number] [place] [address]- 0983 Jul, [facility] [place] [facility] [address] [id number] [place] [address]- 0660 Jul, [facility] [place] [facility] [address] [id number] [place] [address]- 7134 Jul, [facility] [place] [facility] [address] [id number] [place] [address]- 2238 Jul, [facility] [place] [facility] [address] [id number] [place] [address]- 2202 Jul, [facility] [place] [facility] [address] [id number] [place] [address]- 4617 12 Jul, 2013 [facility] [place] [facility] [address] [id number] [place] [address]- 0622 Jul, [facility] [place] [facility] [address] [id number] [place] [address]- 1159 Jul, [facility] [place] [facility] [address] [id number] [place] [address]- 9154 08 Jul, 2013 [facility] [place] [facility] [address] [id number] [place] [address]- 4141 Jul, [facility] [place] [facility] [address] [id number] [place] [address]- 2595 Jul, [facility] [place] [facility] [address] [id number] [place] [address]- 6326 Jul, [facility] [place] [facility] [address] [id number] [place] [address]- 6656 Jul, [facility] [place] [facility] [address] [id number] [place] [address]- 2138 Jul, [facility] [place] [facility] [address] [id number] [place] [address]- 5122 Jul, [facility] [place] [facility] [address] [facility] [place] [id number] [place] [address]- 4604 Jul, [facility] [place] [facility] [address] [id number] [place] [address]- 0082 Jul, [facility] [place] [facility] [address] [id number] [place] [address]- 5154 Jul, [facility] [place] [facility] [address] [id number] [place] [address]- 0765 Jun, [facility] [place] [facility] [address] [id number] [place] [address]- 1796 Jun, [facility] [place] [facility] [address] [id number] [place] [address]- 3969 Jun, 2012 [facility] [place] [facility] [address] [id number] [place] [address]- 4411 16 Jun, 2012 [facility] [place] [facility] [address] [id number] [place] [address]- 6627 16 Jun, 2012 [facility] [place] [facility] [address] [id number] [place] [address]- 7973 16 Jun, 2012 [facility] [place] [facility] [address] [id number] [place] [address]- 2815 10 Jun, 2012 [facility] [place] [facility] [address] [id number] [place] [address]- 7960 10 Jun, 2013 [facility] [place] [facility] [address] [id number] [place] [address]- 2881 09 Jun, 2013 [facility] [place] [facility] [address] [id number] [place] [address]- 4117 Jun, [facility] [place] [facility] [address] [id number] [address]- 3145 Jun, [facility] [place] [facility] [address] [id number] [address]- 9837 26 May, 2012 [facility] [place] [facility] [address] [id number] [place] [address]- 5525 25 Sep, 2012 [facility] [place] [facility] [address] [id number] [address]- 6572 19 Sep, 2012 [facility] [place] [facility] [address] [id number] [address]- 7481 17 Sep, 2012 [facility] [place] [facility] [address] [id number] [address]- 4303 11 Sep, 2012 [facility] [place] [facility] [address] [id number] [address]- 2914 10 May, 2012 [facility] [place] [facility] [address] [id number] [address]- 0219 09 May, 2012 [facility] [place] [facility] [address] [id number] [place] [address]- 1678 May, [facility] [address] [id number] [place] [address]- 2917 Apr, [facility] [place] [facility] [address] [id number] [place] [address]- 2960 Apr, [facility] [place] [facility] [address] [id number] [place] [address]- 7929 Apr, [facility] [place] [facility] [address] [id number] [place] [address]- 7886 Apr, [facility] [place] [facility] [address] [id number] [place] [address]- 9622 Apr, [facility] [place] [facility] [address] [id number] [place] [address]- 3445 Mar, [facility] [place] [facility] [address] [id number] [place] [address]- 3008 Mar, [facility] [place] [facility] [address] [id number] [place] [address]- 6728 Mar, [facility] [place] [facility] [address] [id number] [place] [address]- 8186 Mar, [facility] [place] [facility] [address] [id number] [place] [address]- 0114 Mar, [facility] [place] [facility] [address] [id number] [place] [address]- 7960 Mar, [facility] [place] [facility] [address] [id number] [place] [address]- 9383 Mar, [facility] [place] [facility] [address] [id number] [place] [address]- 4175 Mar, [facility] [place] [facility] [address] [id number] [place] [address]- 3248 Feb, [facility] [place] [facility] [address] [id number] [place] [address]- 9660 Feb, [facility] [place] [facility] [address] [id number] [place] [address]- 3902 January, [facility] [address] [id number] [place] [address]- 4069 January, [facility] [place] [facility] [address] [id number] [place] [address]- 5942 Dec, [facility] [place] [facility] [address] [id number] [place] [address]- 8285 Dec, [facility] [address] [id number] [place] [address]- 6035 Nov, [facility] [place] [facility] [address] [id number] [place] [address]- 6016 Nov, [facility] [address] [id number] [place] [address]- 1072 Nov, [facility] [place] [facility] [address] [id number] [place] [address]- 2724 Nov, [facility] [address] [id number] [place] [address]- 1758 Oct, [facility] [place] [facility] [address] [id number] [place] [address]- 0059 Oct, [facility] [place] [facility] [address] [id number] [place] [address]- 0521 Oct, [facility] [place] [facility] [address] [id number] [place] [address]- 3574 Oct, [facility] [place] [facility] [address] [id number] [place] [address]- 4238 Oct, [facility] [place] [facility] [address] [id number] [place] [address]- 9685 14 Oct, 2012 [facility] [place] [facility] [address] [id number] [place] [address]- 3836 Oct, [facility] [place] [facility] [address] [id number] [place] [address]- 1015 07 Oct, 2012 [facility] [address] [id number] [place] [address]- 4153 03 Oct, 2012 [facility] [address] [id number] [place] [address]- 5840 30 Sep, 2012 [facility] [address] [id number] [place] [address]- 5373 Sep, [facility] [place] [facility] [address] [id number] [place] [address]- 7858 Sep, [facility] [address] [id number] [place] [address]- 8615 Sep, [facility] [address] [id number] [place] [address]- 2673 17 Sep, 2012 [facility] [address] [id number] [place] [address]- 5908 Sep, [facility] [address] [id number] [place] [address]- 1042 Sep, [facility] [address] [id number] [place] [address]- 8445 Sep, [facility] [address] [facility] [place] [id number] [place] [address]- 9284 Aug, [facility] [address] [id number] [place] [address]- 4738 Aug, [facility] [place] [facility] [address] [id number] [place] [address]- 2545 Aug, [facility] [place] [facility] [address] [id number] [place] [address]- 2937 Aug, [facility] [place] [facility] [address] [id number] [place] [address]- 0868 Aug, [facility] [address] [id number] [place] [address]- 0750 Aug, [facility] [place] [facility] [address] [id number] [place] [address]- 4290 Aug, [facility] [place] [facility] [address] [id number] [place] [address]- 1580 Aug, [facility] [place] [facility] [address] [id number] [place] [address]- 6177 Jul, [facility] [place] [facility] [address] [id number] [place] [address], [place] [address]- 7812 Jul, [facility] [place] [facility] [address] [id number] [place] [address]- 3344 Jul, [facility] [place] [facility] [address] [id number] [place] [address], [place] [address]- 9280 Jul, [facility] [place] [facility] [address] [id number] [place] [address]- 3743 Jul, [facility] [place] [facility] [address] [id number] [place] [address], [place] [address]- 6790 Jul, [facility] [place] [facility] [address] [id number] [place] [address]- 6098 Jun, [facility] [place] [facility] [address] [id number] [place] [address]- 5764 Jun, [facility] [place] [facility] [address] [id number] [place] [address]- 4817 Jun, [facility] [place] [facility] [address] [id number] [address]- 4839 Jun, [facility] [place] [facility] [address] [id number] [place] [address]- 6320 Jun, [facility] [place] [facility] [address] [id number] [place] [address]- 4726 Jun, [facility] [place] [facility] [address] [id number] [place] [address]- 7682 Jun, [facility] [place] [facility] [address] [id number] [address]- 8454 Jun, [facility] [place] [facility] [address] [id number] [place] [address]- 6203 Jun, [facility] [place] [facility] [address] [id number] [place] [address]- 3336 26 May, 2012 [facility] [place] [facility] [address] [id number] [place] [address]- 5746 24 May, 2012 [facility] [place] [facility] [address] [id number] [place] [address]- 4332 May, [facility] [place] [facility] [address] [id number] [place] [address]- 4243 Apr, [facility] [place] [facility] [address] [id number] [place] [address]- 5404 Apr, [facility] [place] [facility] [address] [id number] [place] [address]- 7362 Apr, [facility] [place] [facility] [address] [id number] [place] [address]- 5605 Apr, [facility] [place] [facility] [address] [id number] [place] [address]- 7771 Apr, [facility] [place] [facility] [address] [id number] [place] [address]- 7921 Apr, [facility] [place] [facility] [address] [id number] [place] [address]- 4870 Mar, [facility] [place] [facility] [address] [id number] [place] [address]- 1724 Mar, [facility] [place] [facility] [address] [id number] [place] [address]- 1027 Mar, [facility] [place] [facility] [address] [id number] [place] [address]- 4706 Mar, [facility] [place] [facility] [address] [id number] [place] [address]- 0008 Feb, [facility] [place] [facility] [address] [id number] [place] [address]- 0145 Feb, [facility] [address] [id number] [place] [address]- 9472 Feb, [facility] [address] [id number] [place] [address]- 7702 Feb, [facility] [address] [id number] [place] [address]- 3501 Feb, [facility] [address] [id number] [place] [address]- 6260 January, [facility] [address] [id number] [place] [address]- 9346 January, [facility] [address] [id number] [place] [address]- 1226 January, [facility] [address] [id number] [place] [address]- 2722 January, [facility] [address] [id number] [place] [address]- 5863 January, [facility] [address] [id number] [place] [address]- 5042 January, [facility] [address] [id number] [place] [address]- 9839 Dec, [facility] [address] [id number] [place] [address]- 6408 Dec, [facility] [address] [id number] [place] [address]- 1133 Dec, [facility] [place] [facility] [address] [id number] [place] [address]- 5914 Dec, [facility] [address] [id number] [place] [address]- 6716 Dec, [facility] [address] [id number] [place] [address]- 4949 Nov, [facility] [address] [id number] [place] [address]- 9707 14 Nov, 2011 [facility] [place] [facility] [address] [id number] [place] [address]- 6930 12 Nov, 2011 [facility] [place] [facility] [address] [id number] [place] [address]- 4199 07 Nov, 2011 [facility] [place] [facility] [address] [id number] [place] [address]- 8023 29 Oct, 2011 [facility] [place] [facility] [address] [id number] [place] [address]- 6499 28 Oct, 2011 [facility] [place] [facility] [address] [id number] [place] [address]- 5235 24 Oct, 2011 [facility] [place] [facility] [address] [id number] [place] [address]- 1954 13 Oct, 2011 [facility] [place] [facility] [address] [id number] [place] [address]- 0291 08 Oct, 2011 [facility] [place] [facility] [address] [id number] [place] [address]- 4715 Sep, [facility] [place] [facility] [address] [id number] [place] [address]- 1918 Sep, [facility] [place] [facility] [address] [id number] [place] [address]- 6367 Sep, [facility] [place] [facility] [address] [id number] [place] [address]- 2945 Sep, [facility] [place] [facility] [address] [id number] [place] [address]- 9175 Sep, [facility] [place] [facility] [address] [id number] [place] [address]- 2669 Sep, [facility] [place] [facility] [address] [id number] [place] [address]- 4586 Aug, [facility] [place] [facility] [address] [id number] [place] [address]- 8259 Aug, [facility] [place] [facility] [address] [id number] [place] [address]82 Aug, [facility] [place] [facility] [address] [id number] [place] [address]- 7401 Jul, [facility] [place] [facility] [address] [id number] [place] [address]- 2283 Jul, [facility] [place] [facility] [address] [id number] [place] [address]- 2568 Jul, [facility] [place] [facility] [address] [id number] [place] 7534 Jul, [facility] [place] [facility] [address] [id number] [place] [address]- 1990 Jun, [facility] [place] [facility] [address] [id number] [place] [address]- 5446 Jun, [facility] [place] [facility] [address] [id number] [place] [address]- 5213 Jun, [facility] [place] [facility] [address] [id number] [place] [address]- 6732 Jun, [facility] [place] [facility] [address] [facility] [place] [id number] [place] [address] Jun, [facility] [place] [facility] [address] [id number] [place] [address] Jun, [facility] [place] [facility] [address] [id number] [place] [address] Mar, [facility] [place] [facility] [address] [id number] [place] [address] Dec, [facility] [place] [facility] [address] [id number] [place] [address] Dec, [facility] [place] [facility] [address] [id number] [place] [address] Nov, [facility] [place] [facility] [address] [id number] [place] [address] 16 Nov, 2010 [facility] [address] [id number] [place] [address] 10 Sep, 2010 [facility] [address] [id number] [place] [address] 31 Aug, 2010 [facility] [address] [id number] [place] [address] Aug, [facility] [address] [id number] [place] [address] 29 Aug, 2010 [facility] [address] [id number] [place] [address] Aug, [facility] [address] [id number] [place] [address] Aug, [facility] [address] [id number] [place] [address] 14 Aug, 2010 [facility] [address] [id number] [place] [address] Aug, [facility] [address] [id number] [place] [address] Aug, [facility] [address] [id number] [place] [address] Aug, [facility] [address] [id number] [place] [address] Aug, [facility] [address] [id number] [place] [address] Aug, [facility] [place] [facility] [address] [id number] [place] [address] Aug, [facility] [address] [id number] [place] [address] 30 Jul, 2010 [facility] [address] [id number] [address] Jul, [facility] [place] [facility] [address] [id number] [place] [address] 30 Jul, 2010 [facility] [place] [facility] [address] [id number] [place] [address] Jul, [facility] [place] [facility] [address] [id number] [place] [address] Jul, [facility] [place] [facility] [address] [id number] [place] [address] Jul, [facility] [place] [facility] [address] [id number] [place] [address] 24 Jun, 2010 [facility] [place] [facility] [address] [id number] [place] [address] Jun, [facility] [place] [facility] [address] [id number] [place] [address] Jun, [facility] [place] [facility] [address] [id number] [place] [address] 164[address] Jun, [facility] [place] [facility] [address] [id number] [address] 16 Apr, 2010 [facility] [place] [facility] [address] [id number] [place] [address] Mar, [facility] [place] [facility] [address] [id number] [address] Feb, [facility] [place] [facility] [address] [id number] [address] January, [facility] [place] [facility] [address] [id number] [place] [address] 15 Dec, 2009 [facility] [place] [facility] [address] [id number] [place] [address] Nov, [facility] [place] [facility] [address] [id number] [place] [address] 31 Aug, 2009 [facility] [place] [facility] [address] [id number] [place] [address] Aug, [facility] [address] [id number] [place] [address] Aug, [facility] [place] [facility] [address] [id number] [place] [address] 284[address] Jul, [facility] [address] [id number] [place] [address] Jul, [facility] [place] [facility] [address] [id number] [place] [address] Jul, [facility] [address] [id number] [place] [address] Jun, [facility] [address] [facility] [id number] [place] [address] Jun, [facility] [address] [facility] [id number] [place] [address] Jun, [facility] [address] [id number] [address] Jun, [facility] [address] [facility] [place] [place] [id number] [place] [address] Jun, [facility] [address] [facility] [id number] [address] Jun, [facility] [place] [facility] [address] [facility] [id number] [address] Apr, [facility] [address] [id number] [address] Apr, [facility] [place] [facility] [address] [facility] [id number] [address] Feb, [facility] [place] [facility] [address] [facility] [id number] [address] January, [facility] [address] [id number] [address] Dec, IMMUNIZATIONS No Known Immunizations SOCIAL HISTORY Never Assessed REASON FOR VISIT Controlled Med Refill 03/13/18 PLAN OF CARE VITAL SIGNS MEDICATIONS Medication Instructions Dosage Frequency Start Date End Date Duration Status Percocet 10-325 MG Orally 4 times a day 1 tablet as needed 6h Feb, 28 days Active RESULTS No Results PROCEDURES [...] obesity Medical History skin cancer-basal cell R anabaptist (removed) Medical History Arthritis Medical History degenerative [...] 2009 Surgical History colonoscopy 2009 ([facility]), 2013 ([place]) Surgical History heart 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 04/2014 Surgical History carotid US 05/2014 Surgical History resection of skin cancer from Right anabaptist Surgical History Biopsy of Lung Bilateral/Left lung lymph node 09/2016 Surgical History Bone Marrow Biopsy Surgical History port in the right chest wall 12/2016 Hospitalization History [facility] low potassium, low magnesium, chest painina 01/2015 Hospitalization History inability to urinate 09/16/15 Hospitalization History [facility] early Hospitalization History hyperkalemia 10/2017 Hospitalization History fluid in lung
--- OUTSIDE RECORDS SUMMARY | 2018-08-08 14:05 | XMS REPORT ---
Author Author NOEMI WASHBURN Organization [facility] Address [address] [place] [address] Care Team Providers Care Air Turning Machine Feeder Name Role Phone NOEMI WASHBURN Unavailable PROBLEMS Type Condition ICD9-CM Code RWC14-GC Code Onset Dates Condition Status SNOMED Code Problem Chronic lymphocytic leukemia C91.10 Active 95238369 Problem Lymphocytosis D72.820 Active 28826861 Problem Eye exam abnormal R93.8 Active 543385842 Problem Eustachian tube dysfunction, unspecified laterality H69.80 Active 78225011 Problem Essential hypertension I10 Active 86267625 Problem Dysuria R30.0 Active 59190725 Problem Diabetic polyneuropathy associated with type 2 diabetes mellitus E11.42 Active 06144534 Problem Cough R05 Active 43044706 Problem Polyneuropathy associated with underlying disease G63 Active 998044353 Problem Retinal edema H35.81 Active 1039456 Problem Bilateral primary osteoarthritis of knee M17.0 Active 044150188 Problem Primary osteoarthritis of right knee M17.11 Active 536388566727575 Problem Pure hypercholesterolemia E78.00 Active 801194620 Problem DM neuro manif type II E11.49 Active 25418917 Problem Benign prostatic hyperplasia with lower urinary tract symptoms, unspecified morphology N40.1 Active 509110581 Problem Hypokalemia E87.6 Active 62433211 Problem 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 Active 706812521 Problem Anemia of chronic illness D63.8 Active 116550020 Problem Bipolar disorder, in partial remission, most recent episode depressed F31.75 Active 61986795 Problem Falling R29.6 Active 323007331 Problem Leukocytosis D72.829 Active 557544848 Problem Reactive airway disease J45.909 Active 851384121442 Problem Diabetes E11.9 Active 61038773 Problem Chronic pain G89.29 Active 35455678 Problem Anxiety F41.9 Active 96863223 Problem Morbid obesity E66.01 Active 478292979 Problem Bipolar I disorder, most recent episode (or current) mixed, moderate F31.62 Active 08403154 Problem Insomnia, unspecified type G47.00 Active 236641848 ALLERGIES Substance Reaction Event Type Date Status Breo Ellipta Tongue Swelling Drug Allergy Feb, Active ENCOUNTERS Encounter Location Date Diagnosis [facility] [id number] [place] [address] 92146- 2779 Jun, [facility] [address] 85277- 9249 Apr, [facility] [address] 22326- 3867 Apr, Chronic pain G89.29 [facility] [address] 19961- 0101 Apr, Primary osteoarthritis of right knee M17.[address] 21330- 8685 Mar, [facility] [address] 04877- 5520 Mar, BMI 50.0-59.9, adult Z68.43 and Bipolar disorder, in partial remission, most recent episode depressed F31.75 [facility] [id number] [place] [address] 39872- 6822 Mar, Diabetes E11.9 ; Pure hypercholesterolemia E78.00 ; Essential hypertension I10 ; Nausea with vomiting, unspecified R11.2 and Headache, unspecified headache type R51 [facility] [id number] [place] [address] 26968- 6553 Mar, Bipolar I disorder, most recent episode (or current) mixed, moderate F31.62 [facility] [address] 51354- 7617 Mar, Bipolar I disorder, most recent episode (or current) mixed, moderate F31.62 [facility] [id number] [place] [address] 95596- 0178 Mar, Chronic pain G89.29 [facility] [address] [place] [address] 4414 Mar, Bipolar I disorder, most recent episode (or current) mixed, moderate F31.62 [facility] [address] [place] [address] 99590- 8501 Feb, Bipolar I disorder, most recent episode (or current) mixed, moderate F31.62 [facility] [id number] [place] [address] 50259- 0435 Feb, Chronic pain G89.29 [facility] [id number] [place] [address] 04995- 0496 Feb, Decubitus ulcer of right foot, stage 3 L89.893 and BMI 50.0- 59.9, adult Z68.43 [facility] [id number] [place] [address] 10950- 9786 Feb, Bipolar I disorder, most recent episode (or current) mixed, moderate F31.62 [facility] [id number] [place] [address] 34023- 4289 Feb, [facility] [id number] [place] [address] 26498- 1597 January, [facility] [id number] [place] [address] 80529- 1623 January, Chronic pain G89.29 [facility] [id number] [place] [address] 65739- 5200 January, Bipolar I disorder, most recent episode (or current) mixed, moderate F31.62 [facility] [id number] [place] [address] 75981- 3444 January, Bipolar I disorder, most recent episode (or current) mixed, moderate F31.62 [facility] [address] [place] [address]- 8619 Dec, Bipolar I disorder, most recent episode (or current) mixed, moderate F31.62 and BMI 50.0-59.9, adult Z68.43 [facility] [id number] [place] [address] 73779- 0737 Dec, Bipolar I disorder, most recent episode (or current) mixed, moderate F31.62 [facility] [id number] [place] [address] 05057- 1776 Dec, Chronic pain G89.29 [facility] [address] 63150- 3580 Dec, DM neuro manif type II E11.49 ; Right flank pain R10.9 ; custodial 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 Z79.891 ; Encounter for medication monitoring Z51.81 and BMI 50.0-59.9, adult Z68.43 [facility] [id number] [place] [address] 34869- 4164 Dec, Bipolar I disorder, most recent episode (or current) mixed, moderate F31.62 [facility] [id number] [place] [address] 48874- 7855 Nov, Bipolar I disorder, most recent episode (or current) mixed, moderate F31.62 [facility] [id number] [place] [address] 92348- 9125 Nov, Chronic pain G89.29 [facility] [id number] [place] [address] 84281- 5161 Nov, Bipolar I disorder, most recent episode (or current) mixed, moderate F31.62 [facility] [id number] [place] [address] 14251- 9444 Nov, Hypokalemia E87.6 [facility] [address] 76221- 3212 Nov, Bipolar I disorder, most recent episode (or current) mixed, moderate F31.62 [facility] [id number] [place] [address] 15683- 0409 Oct, Chronic pain G89.29 [facility] [id number] [place] [address] 64323- 7496 Oct, BMI 50.0-59.9, adult Z68.43 and Bipolar I disorder, most recent episode (or current) mixed, moderate F31.62 [facility] [address] [place] [address] 34720- 7248 Oct, Bipolar I disorder, most recent episode (or current) mixed, moderate F31.62 [facility] [id number] [place] [address] 47326- 8383 Oct, [facility] [address] 65411- 2117 Oct, Hypokalemia E87.6 [facility] [id number] [place] [address] 92996- 0527 Oct, DM neuro manif type II E11.49 [facility] [id number] [place] [address] 05891- 8200 Oct, Bipolar I disorder, most recent episode (or current) mixed, moderate F31.62 [facility] [id number] [place] [address] 19647- 0489 Oct, Bipolar I disorder, most recent episode (or current) mixed, moderate F31.62 [facility] [id number] [place] [address] 73104- 5998 Oct, Hyperkalemia E87.5 ; Falling R29.6 ; BMI 50.0-59.9, adult Z68.43 and Acute left ankle pain M25.572 [facility] [id number] [place] [address] 89657- 5120 Oct, DM neuro manif type II E11.49 [facility] [id number] [place] [address] 63424- 2549 Oct, [facility] [id number] [place] [address] 38182- 7440 Sep, Chronic pain G89.29 [facility] [address] 58076- 3008 Sep, [facility] [id number] [place] [address] 52885- 8905 Sep, Bilateral primary osteoarthritis of knee M17.[address] 54665- 8904 Sep, Generalized edema R60.[address] 46295- 0189 Sep, Bipolar I disorder, most recent episode (or current) mixed, moderate F31.[address] 36770- 3213 Sep, Hypoxia R09.02 ; Other hypervolemia E87.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 ; Anemia of chronic illness D63.8 and BMI 50.0- 59.9, adult Z68.43 [facility] [id number] [place] [address] 09047- 0592 Sep, [facility] [id number] [place] [address] 02512- 8533 Sep, Bipolar I disorder, most recent episode (or current) mixed, moderate F31.62 [facility] [id number] [place] [address] 70776- 9977 Aug, Chronic pain G89.29 [facility] [id number] [place] [address] 36579- 1100 Aug, Generalized edema R60.1 [facility] [id number] [place] [address] 65885- 8126 Aug, [facility] [address] [place] [address]- 4249 18 Aug, 2017 [facility] [id number] [place] [address] 835579- 4021 14 Aug, 2017 Bipolar I disorder, most recent episode (or current) mixed, moderate F31.62 [facility] [id number] [place] [address] 76003- 5657 07 Aug, 2017 Bipolar I disorder, most recent episode (or current) mixed, moderate F31.62 [facility] [id number] [place] [address] 28412- 4371 Aug, Chronic pain G89.29 [facility] [address] 58520- 9054 Jul, Bipolar I disorder, most recent episode (or current) mixed, moderate F31.62 [facility] [id number] [place] [address] 76530- 0195 Jul, Bipolar I disorder, most recent episode (or current) mixed, moderate F31.62 and BMI 60.0-69.9, adult Z68.44 [facility] [id number] [place] [address] 32654- 3597 Jul, Bipolar I disorder, most recent episode (or current) mixed, moderate F31.62 [facility] [id number] [place] [address] 78208- 2685 Jul, Chronic pain G89.29 [facility] [id number] [place] [address] 84835- 8886 Jul, Bipolar I disorder, most recent episode (or current) mixed, moderate F31.62 [facility] [id number] [place] [address] 62097- 8947 Jun, Polyneuropathy associated with underlying disease G63 and Diabetes E11.9 [facility] [id number] [place] [address] 98868- 4502 Jun, Bipolar I disorder, most recent episode (or current) mixed, moderate F31.62 [facility] [address], [place] [address]- 9510 09 Jun, 2017 Chronic pain G89.29 [facility] [id number] [place] [address] 81715- 5956 27 May, 2017 Bipolar I disorder, most recent episode (or current) mixed, moderate F31.62 [facility] [id number] [place] [address] 21111- 7789 21 May, 2017 Bipolar I disorder, most recent episode (or current) mixed, moderate F31.62 [facility] [id number] [place] [address] 96121- 9208 20 May, 2017 Diabetic polyneuropathy associated with type 2 diabetes mellitus E11.42 [facility] [id number] [place] [address] 98537- 0011 18 May, 2017 Bipolar I disorder, most recent episode (or current) mixed, moderate F31.62 [facility] [id number] [place] [address] 55478- 6905 13 May, 2017 Bipolar I disorder, most recent episode (or current) mixed, moderate F31.62 [facility] [id number] [place] [address] 20098- 9747 May, Chronic pain G89.29 [facility] [address] [place] [address] 49369- 9213 Apr, Bipolar I disorder, most recent episode (or current) mixed, moderate F31.62 [facility] [address] [place] [address] 98817- 4343 Apr, [facility] [id number] [place] [address] 05404- 0155 Apr, Chronic pain G89.29 and DM neuro manif type II E11.49 [facility] [id number] [place] [address] 14204- 1428 Apr, [facility] [address] [place] [address]- 4046 Apr, Bipolar I disorder, most recent episode (or current) mixed, moderate F31.62 [facility] [address], [place] [address]- 5296 Apr, Chronic pain G89.29 [facility] [address] [place] [address] 68710- 7316 Apr, Iliotibial band syndrome, left M76.32 [facility] [id number] [place] [address] 61631- 4196 Apr, Bipolar I disorder, most recent episode (or current) mixed, moderate F31.62 [facility] [id number] [place] [address] 63900- 3205 Mar, Bipolar I disorder, most recent episode (or current) mixed, moderate F31.62 [facility] [address] [place] [address] 88661- 7991 Mar, Bipolar I disorder, most recent episode (or current) mixed, moderate F31.62 [facility] [address] [place] [address] 30177- 5213 Mar, [facility] [address] [place] [address] 94293- 1810 Mar, Bipolar I disorder, most recent episode (or current) mixed, moderate F31.62 [facility] [address], [place] [address]- 7036 Mar, Chronic pain G89.29 [facility] [address], [place] [address]- 1376 Mar, Bipolar I disorder, most recent episode (or current) mixed, moderate F31.62 [facility] [address], [place] [address]- 2286 Mar, Bipolar I disorder, most recent episode (or current) mixed, moderate F31.62 [facility] [id number] [place] [address] 50179- 2628 Mar, Acute pain of left knee M25.562 ; Left hip pain M25.552 ; Generalized edema R60.1 and Tongue swelling R22.0 [facility] [id number] [place] [address] 22840- 9866 Mar, [facility] [id number] [place] [address] 40876- 1044 Feb, Chronic pain G89.29 [facility] [id number] [place] [address] 70559- 5441 Feb, Diabetes E11.9 [facility] [address] 57972- 6897 January, Chronic pain G89.29 [facility] [id number] [place] [address] 96374- 3439 January, [facility] [id number] [place] [address] 34775- 3621 January, Bipolar I disorder, most recent episode (or current) mixed, moderate F31.62 [facility] [id number] [place] [address] 17445- 3098 Dec, Bipolar I disorder, most recent episode (or current) mixed, moderate F31.62 [facility] [id number] [place] [address] 65045- 7502 Dec, Chronic pain G89.29 [facility] [id number] [place] [address] 56343- 8983 Dec, Bipolar I disorder, most recent episode (or current) mixed, moderate F31.62 [facility] [id number] [place] [address] 45830- 5522 Dec, Diabetes E11.9 ; Essential hypertension I10 ; Chronic pain G89.29 and Morbid obesity E66.01 [facility] [id number] [place] [address] 89886- 3828 Dec, [facility] [id number] [place] [address]- 8366 Dec, Bipolar I disorder, most recent episode (or current) mixed, moderate F31.62 [facility] [address]- 8956 Dec, Bipolar I disorder, most recent episode (or current) mixed, moderate F31.62 [facility] [address], [place] [address]- 3676 Nov, Chronic pain G89.29 [facility] [address] [place] [address] 06541- 2606 Nov, Bipolar I disorder, most recent episode (or current) mixed, moderate F31.62 [facility] [address], [place] [address]- 6906 Nov, [facility] [address] [place] [address] 05917- 9116 Nov, Bipolar I disorder, most recent episode (or current) mixed, moderate F31.62 [facility] [address], [place] [address]- 2099 Nov, Bipolar I disorder, most recent episode (or current) mixed, moderate F31.62 [facility] [address], [place] [address]- 8396 Nov, [facility] [address], [place] [address]- 3186 Nov, [facility] [address], [place] [address]- 7926 Nov, [facility] [address], [place] [address]- 0476 Oct, Chronic pain G89.29 [facility] [address], [place] [address]- 2506 Oct, Bipolar I disorder, most recent episode (or current) mixed, moderate F31.62 [facility] [address], [place] [address]- 2846 Oct, [facility] [id number] [place] [address] 18203 2546 Oct, Chronic pain G89.29 ; Diabetes E11.9 ; Anxiety F41.9 and 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 [facility] [address] [place] [address] 90766- 6396 Oct, [facility] [address] [place] [address] 67549- 1416 Oct, Diabetes E11.9 [facility] [address] [place] [address] 76829- 2545 Oct, Bipolar I disorder, most recent episode (or current) mixed, moderate F31.62 [facility] [id number] [place] [address] 70243- 5218 Sep, Chronic pain G89.29 [facility] [address] [place] [address] 59932 2546 Sep, Chronic pain G89.29 [facility] [address] [place] [address] 72316 2546 Aug, Chronic pain G89.29 [facility] [address] [place] [address] 37195 2546 Jul, [facility] [address] [place] [address] 79524 2546 Jul, Diabetes E11.9 [facility] [address] [place] [address] 45633 2546 Jul, Chronic pain G89.29 [facility] [address] [place] [address] 77970- 2900 Jul, Bipolar I disorder, most recent episode (or current) mixed, moderate F31.62 [facility] [address] [place] [address] 38158- 2378 Jun, Bipolar I disorder, most recent episode (or current) mixed, moderate F31.62 [facility] [id number] [place] [address] 01852- 2076 Jun, [facility] [id number] [place] [address] 45949- 6761 Jun, Bipolar I disorder, most recent episode (or current) mixed, moderate F31.62 [facility] [id number] [place] [address] 72873- 3136 30 May, 2016 Insomnia, unspecified type G47.00 [facility] [id number] [place] [address] 53609- 9205 May, Bipolar I disorder, most recent episode (or current) mixed, moderate F31.62 [facility] [id number] [place] [address] 62631- 0511 May, [facility] [id number] [place] [address] 07396- 8671 May, Bipolar I disorder, most recent episode (or current) mixed, moderate F31.62 [facility] [id number] [place] [address] 57656- 3246 May, Diabetes E11.9 and Essential hypertension I10 [facility] [address] [place] [address] 87128- 3723 Apr, Chronic pain G89.29 [facility] [id number] [place] [address] 56897- 9078 Apr, Bipolar I disorder, most recent episode (or current) mixed, moderate F31.62 [facility] [id number] [place] [address] 21599- 6079 Apr, [facility] [id number] [place] [address] 46555- 1006 Apr, [facility] [address] [place] [address] 60230- 7745 Mar, Chronic pain G89.29 ; Headache, unspecified headache type R51 ; Neuropathy G62.9 ; Pain of right hip joint M25.551 and Essential hypertension I10 [facility] [id number] [place] [address] 27542- 7951 Mar, Chronic pain G89.29 [facility] [address] [place] [address] 72755- 9106 Mar, Bipolar I disorder, most recent episode (or current) mixed, moderate F31.62 [facility] [id number] [place] [address] 28636- 9221 Feb, Bipolar I disorder, most recent episode (or current) mixed, moderate F31.62 and Insomnia, unspecified type G47.00 [facility] [id number] [place] [address] 49051- 9787 Feb, Chronic pain G89.29 [facility] [id number] [place] [address] 25291- 0226 Feb, Bipolar I disorder, most recent episode (or current) mixed, moderate F31.62 [facility] [id number] [place] [address] 21177- 2866 January, Bipolar I disorder, most recent episode (or current) mixed, moderate F31.62 [facility] [id number] [place] [address] 47893- 0525 January, Chronic pain G89.29 [facility] [id number] [place] [address] 55883- 0031 January, Chronic pain G89.29 and Essential hypertension I10 [facility] [id number] [place] [address] 86954- 6184 January, Bipolar I disorder, most recent episode (or current) mixed, moderate F31.62 [facility] [id number] [place] [address] 16517- 7506 Dec, [facility] [id number] [place] [address] 23033- 9075 Dec, [facility] [id number] [place] [address] 10501- 8024 Dec, [facility] [id number] [place] [address] 96347- 0965 Dec, [facility] [id number] [place] [address] 06584- 0378 Nov, Reactive airway disease J45.909 [facility] [id number] [place] [address] 70818- 1633 Nov, [facility] [id number] [place] [address] 68408- 6618 Nov, [facility] [id number] [place] [address] 52346- 3589 Nov, [facility] [id number] [place] [address] 23566- 8592 Nov, [facility] [id number] [place] [address] 57010- 0905 Nov, Onychomycosis B35.1 ; [place] M20.40 ; [place] or callus L84 and DM neuro manif type II E11.49 [facility] [id number] [place] [address] 20357- 9114 Nov, Chronic pain G89.29 ; Leukocytosis D72.829 and Diabetes E11.9 [facility] [id number] [place] [address] 02256- 5486 Nov, [facility] [id number] [place] [address] 52696- 5048 Oct, Bronchitis J40 [facility] [id number] [place] [address] 58891- 2743 Oct, [facility] [id number] [place] [address] 36540- 8146 Oct, [facility] [address] 00807- 7815 Oct, Mastoiditis, unspecified laterality H70.90 and Type 2 diabetes mellitus with complication E11.8 [place] [address] 41162- 5070 Sep, [facility] [address] 26342- 0921 Sep, Dysuria R30.0 ; Cough R05 ; Benign prostatic hyperplasia with lower urinary tract symptoms, unspecified morphology N40.1 ; Hypokalemia E87.6 and Eustachian tube dysfunction, unspecified laterality H69.80 [place] [address] 59080- 4416 Sep, Moderate mixed bipolar I disorder F31.62 [place] [address] 00880- 8718 Sep, Hypokalemia E87.6 [place] [address] 92273- 1100 Sep, [facility] [id number] [place] [address] 38891- 3332 Sep, Upper respiratory tract infection, unspecified type J06.9 [facility] [id number] [place] [address] 47809- 6889 Aug, [facility] [id number] [place] [address] 90153- 5850 Aug, Dysuria R30.0 [facility] [address] 38681- 1659 Aug, [facility] [id number] [place] [address] 36044- 0726 Jul, [facility] [address] [place] [address]- 8649 Jul, [facility] [address], [place] [address]- 2259 Jul, [facility] [address] 3353 Jul, [facility] [address], [place] [address]- 0592 Jun, [facility] [id number] [place] [address] 03721- 5892 Jun, [facility] [id number] [place] [address] 82207- 5854 Jun, [facility] [id number] [place] [address] 65365- 9639 May, [facility] [id number] [place] [address] 20374- 8324 May, Bipolar I disorder, most recent episode (or current) mixed, moderate 296.62 [facility] [address], [place] [address]- 3979 May, [facility] [id number] [place] [address] 96269- 7692 May, Bipolar I disorder, most recent episode (or current) mixed, moderate 296.62 and Major depressive disorder, recurrent episode, severe, specified as with psychotic behavior 296.34 [facility] [address], [place] [address]- 7895 May, Bipolar I disorder, most recent episode (or current) mixed, moderate 296.62 [facility] [address], [place] [address]- 9923 May, [facility] [address], [place] [address]- 9535 Apr, [facility] [address], [place] [address]- 0540 Apr, [facility] [address], [place] [address]- 5604 Apr, Unspecified disorder of kidney and ureter 593.9 and Diabetes mellitus type 2, uncontrolled 250.02 [facility] [address], [place] [address]- 4490 Apr, [facility] [id number] [place] [address] 47453- 9368 Apr, [facility] [id number] [place] [address] 31454- 6238 Apr, [facility] [id number] [place] [address] 00619- 7565 Apr, [facility] [id number] [place] [address] 33982- 7134 Apr, Diabetes mellitus type II, uncontrolled 250.02 [facility] [id number] [place] [address] 71416- 3500 Apr, [facility] [id number] [place] [address] 61064- 4035 Mar, [facility] [id number] [place] [address] 91909- 3976 Mar, [facility] [address], [place] [address]- 2538 Mar, [facility] [id number] [place] [address] 12954- 2026 Mar, Major depressive disorder, recurrent episode, severe, specified as with psychotic behavior 296.34 and Bipolar I disorder, most recent episode (or current) mixed, moderate 296.62 [facility] [address] [place] [address] 12698- 9045 Mar, Diabetes 250.00 ; Anuria 788.5 ; Nausea and vomiting 787.01 and Diarrhea 787.91 [facility] [id number] [place] [address] 45931- 3236 Mar, Diabetes 250.00 [facility] [address], [place] [address]- 1659 Mar, [facility] [id number] [place] [address] 52747- 1114 Mar, Diabetes 250.00 [facility] [id number] [place] [address] 67827- 6358 Mar, [facility] [id number] [place] [address] 57359- 0233 Mar, [facility] [id number] [place] [address] 45793- 7782 Mar, [facility] [id number] [place] [address] 03256- 0713 Mar, [facility] [address] [place] [address] 12550- 2539 Mar, Bipolar I disorder, most recent episode (or current) mixed, moderate 296.62 and Major depressive disorder, recurrent episode, severe, specified as with psychotic behavior 296.34 [place] [id number] [place] [address] 16169- 3702 Mar, Magnesium deficiency 275.2 ; Hypokalemia 276.8 ; Nausea & vomiting 787.01 and Diabetes mellitus type 2, uncontrolled 250.02 [facility] [address] [place] [address] 74434- 9992 Feb, [facility] [id number] [place] [address] 57178- 6213 Feb, Bipolar I disorder, most recent episode (or current) mixed, moderate 296.62 [facility] [address] [place] [id number] [place] [address] 88917- 0376 Feb, Nausea and vomiting 787.01 ; Left elbow pain 719.42 ; Anuria 788.5 and Diabetes 250.00 [facility] [id number] [place] [address] 34090- 8683 Feb, [facility] [address], [place] [address]- 8228 Feb, Hypopotassemia 276.8 and Hypokalemia 276.8 [facility] [address], [place] [address]- 5074 Feb, Hypopotassemia 276.8 and Hypokalemia 276.8 [facility] [id number] [place] [address] 09998- 2995 Feb, Seborrheic keratoses 702.19 [facility] [id number] [place] [address] 76089- 2420 Feb, Hypopotassemia 276.8 and Low magnesium levels 275.2 [facility] [id number] [place] [address] 05749- 6350 January, [facility] [id number] [place] [address] 05139- 0963 January, [facility] [id number] [place] [address] 21585- 0745 January, [facility] [id number] [place] [address] 95246- 4705 January, Scalp lesion 709.9 [facility] [id number] [place] [address] 36703- 9861 January, [facility] [id number] [place] [address] 06555- 0553 Dec, Tear of medial cartilage or meniscus of knee, current 836.0 and 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 [facility] [id number] [place] [address] 91326- 9398 Dec, [facility] [id number] [place] [address] 40458- 8254 Dec, [facility] [id number] [place] [address] 96852- 5151 28 Dec, 2014 Squamous cell carcinoma, 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 [id number] [place] [address]- 2813 Nov, [facility] [place] [facility] [address] [id number] [place] [address]- 3002 Nov, [facility] [place] [facility] [address] [id number] [place] 0476 Nov, [facility] [place] [facility] [address] [facility] [id number] [place] [address]- 9370 Nov, [facility] [address] [facility] [id number] [place] [address]- 2609 Nov, [facility] [place] [facility] [address] [facility] [id number] [place] [address]- 1093 Nov, [facility] [place] [facility] [address] [facility] [id number] [place] [address]- 0082 Nov, [facility] [place] [facility] [address] [facility] [id number] [place] [address]- 0041 Nov, [facility] [place] [facility] [address] [facility] [id number] [place] [address]- 8264 Nov, [facility] [place] [facility] [address] [facility] [id number], [place] [address]- 6415 Nov, [facility] [place] [facility] [address] [facility] [id number] [place] [address]- 2312 Nov, [facility] [place] [facility] [address] [facility] [id number] [place] [address]- 5516 Nov, [facility] [place] [facility] [address] [facility] [id number], [place] [address]- 8056 Oct, [facility] [place] [facility] [address] [id number] [place] [address]- 6363 Oct, 2014 [facility] [place] [facility] [address] [id number] [place] [address]- 5405 Oct, 2014 [facility] [place] [facility] [address] [id number] [place] [address]- 5849 Oct, 2014 [facility] [place] [facility] [address] [id number] [place] [address]- 9531 Oct, 2014 [facility] [place] [facility] [address] [id number] [place] [address]- 5144 Oct, [facility] [place] [facility] [address] [id number] [place] [address]- 4511 Oct, 2014 [facility] [place] [facility] [address] [facility] [id number] [place] [address]- 2923 Oct, [facility] [place] [facility] [address] [id number] [place] [address]- 9681 Oct, [facility] [place] [facility] [address] [id number] [place] [address]- 9732 Sep, [facility] [place] [facility] [address] [id number] [place] [address]- 0576 Sep, [facility] [place] [facility] [address] [id number], [place] [address]- 6544 Sep, [facility] [place] [facility] [address] [id number], [place] [address]- 1827 Sep, [facility] [place] [facility] [address] [id number] [place] [address]- 2625 Sep, [facility] [place] [facility] [address] [id number] [place] [address]- 1731 Sep, [facility] [place] [facility] [address] [facility] [id number] [place] [address]- 6112 Sep, [facility] [place] [facility] [address] [id number] [place] [address]- 3773 Sep, [facility] [place] [facility] [address] [id number] [place] [address]- 6417 Sep, [facility] [place] [facility] [address] [id number] [place] [address]- 9170 Sep, [facility] [place] [facility] [address] [id number] [place] [address]- 0532 Sep, [facility] [place] [facility] [address] [id number] [place] [address]- 4822 Sep, [facility] [place] [facility] [address] [id number] [place] [address]- 6358 Sep, [facility] [place] [facility] [address] [id number] [place] [address]- 8931 Sep, [facility] [place] [facility] [address] [id number] [place] [address]- 5200 Sep, [facility] [place] [facility] [address] [id number] [place] [address]- 6752 Sep, [facility] [place] [facility] [address] [id number] [place] [address]- 3268 Aug, [facility] [place] [facility] [address] [id number] [place] [address]- 1566 31 Aug, 2014 [facility] [place] [facility] [address] [id number] [place] [address]- 1863 31 Aug, 2014 [facility] [place] [facility] [address] [id number] [place] [address]- 0531 31 Aug, 2014 [facility] [place] [facility] [address] [id number] [place] [address]- 6645 31 Aug, 2014 [facility] [place] [facility] [address] [id number] [place] [address]- 2478 31 Aug, 2014 [facility] [place] [facility] [address] [id number] [place] [address]- 5314 Aug, [facility] [address] [id number] [place] [address]- 5412 Aug, [facility] [address] [id number] [place] [address]- 8101 Aug, [facility] [address] [id number] [place] [address]- 3230 Aug, [facility] [address] [id number] [place] [address]- 2950 Aug, [facility] 1 [facility] [id number] Aug, [facility] [address] [id number] [place] [address]- 3494 Aug, [facility] [address] [id number] [place] [address]- 4420 Aug, [facility] [address] [id number] [place] [address]- 6220 Aug, [facility] [address] [id number] [place] [address]- 8000 Aug, [facility] [address] [id number] [place] [address]- 1604 Aug, [facility] [address] [id number] [place] [address]- 2081 Aug, [facility] [address] [id number] [place] [address]- 5353 Aug, [facility] [address] [id number] [place] [address]- 8832 Aug, [facility] [address] [id number] [place] [address]- 5505 Aug, [facility] [address] [id number] [place] [address]- 5106 Aug, [facility] [address] [id number] [place] [address]- 7667 Aug, [facility] [place] [facility] [address] [id number] [place] [address]- 4559 Aug, [facility] [place] [facility] [address] [id number] [place] [address]- 2979 Aug, [facility] [place] [facility] [address] [id number] [place] [address]- 7706 Aug, [facility] [place] [facility] [address] [id number] [place] [address]- 2198 Aug, [facility] [place] [facility] [address] [id number] [place] [address]- 6102 Aug, [facility] [place] [facility] [address] [id number] [place] [address]- 8399 Aug, [facility] [place] [facility] [address] [id number] [place] [address]- 3799 Aug, [facility] [place] [facility] [address] [id number] [place] [address]- 6025 Jul, [facility] [place] [facility] [address] [id number] [place] [address]- 0283 Jul, [facility] [place] [facility] [address] [id number] [place] [address]- 3867 Jul, [facility] [place] [facility] [address] [id number] [place] [address]- 0311 Jul, [facility] [place] [facility] [address] [id number], [place] [address]- 8167 Jul, [facility] [place] [facility] [address] [id number] [place] [address]- 1697 Jul, [facility] [place] [facility] [address] [id number] [place] [address]- 3837 Jul, [facility] [place] [facility] [address] [id number] [place] [address]- 9856 Jul, [facility] [place] [facility] [address] [id number] [place] [address]- 6179 Jul, [facility] [place] [facility] [address] [id number] [place] [address]- 0728 Jul, [facility] [place] [facility] [address] [id number] [place] [address]- 3914 Jun, [facility] [place] [facility] [address] [id number] [place] [address]- 3537 Jun, [facility] [place] [facility] [address] [id number] [place] [address]- 4131 Jun, [facility] [place] [facility] [address] [id number] [place] [address]- 6228 Jun, [facility] [place] [facility] [address] [id number] [place] [address]- 5371 Jun, [facility] [place] [facility] [address] [id number] [place] [address]- 7812 Jun, [facility] [place] [facility] [address] [id number] [place] [address]- 8712 Jun, [facility] [place] [facility] [address] [id number] [place] [address]- 7188 Jun, [facility] [place] [facility] [address] [facility] [id number] [place] [address]- 0334 Jun, [facility] [place] [facility] [address] [id number] [place] [address]- 5800 Jun, [facility] [place] [facility] [address] [id number] [place] [address]- 7570 29 May, 2014 [facility] [place] [facility] [address] [id number] [place] [address]- 7460 29 May, 2014 [facility] [place] [facility] [address] [id number] [place] [address]- 1737 May, [facility] [place] [facility] [address] [id number] [place] [address]- 3935 May, [facility] [place] [facility] [address] [id number] [place] [address] 254 17 May, 2013 [facility] [place] [facility] [address] [id number] [place] [address] 2546 17 May, 2013 [facility] [place] [facility] [address] [id number] [place] [address] 2546 15 May, 2013 [facility] [place] [facility] [address] [id number] [place] [address] 2546 15 May, 2013 [facility] [place] [facility] [address] [id number] [place] [address] 2549 15 May, 2013 [facility] [place] [facility] [address] [id number] [place] [address]- 2306 15 May, 2013 [facility] [place] [facility] [address] [id number] [place] [address]- 5225 10 May, 2013 [facility] [place] [facility] [address] [id number] [place] [address]- 0704 10 May, 2013 [facility] [place] [facility] [address] [id number] [place] [address]- 6460 09 May, 2013 [facility] [place] [facility] [address] [id number] [place] [address]- 2547 09 May, 2013 [facility] [place] [facility] [address] [id number] [place] [address] 254 04 May, 2013 [facility] [place] [facility] [address] [id number] [place] [address]- 2545 May, 2013 [facility] [place] [facility] [address] [id number] [place] [address]- 0361 Apr, [facility] [place] [facility] [address] [id number] [place] [address]- 2543 Apr, [facility] [place] [facility] [address] [id number] [place] [address]- 7147 Apr, [facility] [place] [facility] [address] [id number] [place] [address]- 7133 Apr, [facility] [place] [facility] [address] [id number] [place] [address] Apr, [facility] [place] [facility] [address] [id number] [place] [address] Apr, [facility] [place] [facility] [address] [id number] [place] [address] Apr, [facility] [place] [facility] [address] [id number] [place] [address] Apr, [facility] [place] [facility] [address] [id number] [place] [address] Apr, [facility] [place] [facility] [address] [id number] [place] [address] Apr, [facility] [place] [facility] [address] [id number] [place] [address] Apr, [facility] [place] [facility] [address] [id number] [place] [address] Apr, [facility] [place] [facility] [address] [id number] [place] [address] Apr, [facility] [place] [facility] [address] [id number] [place] [address] Apr, [facility] [place] [facility] [address] [id number] [place] [address] Apr, [facility] [place] [facility] [address] [id number] [place] [address] Mar, [facility] [place] [facility] [address] [id number] [place] [address] Mar, [facility] [place] [facility] [address] [id number] [place] [address] Mar, [facility] [place] [facility] [address] [id number] [place] [address] Mar, [facility] [place] [facility] [address] [id number] [place] [address] Mar, 2013 [facility] [place] [facility] [address] [id number] [place] [address]- [address] Mar, 2013 [facility] [place] [facility] [address] [id number] [place] [address] Mar, 2013 [facility] [place] [facility] [address] [id number] [place] [address]- [address] Mar, 2013 [facility] [place] [facility] [address] [id number] [place] [address] Mar, 2013 [facility] [place] [facility] [address] [id number] [place] [address] Mar, 2013 [facility] [place] [facility] [address] [id number] [place] [address]- [address] Mar, 2013 [facility] [place] [facility] [address] [id number] [place] [address]- [address] Mar, 2013 [facility] [place] [facility] [address] [id number] [place] [address]- [address] Mar, 2013 [facility] [place] [facility] [address] [id number] [place] [address]- [address] Mar, 2013 [facility] [place] [facility] [address] [id number] [place] [address] Mar, 2013 [facility] [place] [facility] [address] [id number] [place] [address]- [address] Mar, 2013 [facility] [place] [facility] [address] [id number] [place] [address] Mar, [facility] [place] [facility] [address] [id number] [place] [address] Mar, [facility] [place] [facility] [address] [id number] [place] [address] Feb, [facility] [place] [facility] [address] [id number] [place] [address] Feb, [facility] [place] [facility] [address] [id number] [place] [address] Feb, [facility] [place] [facility] [address] [id number] [place] [address] Feb, [facility] [place] [facility] [address] [id number] [place] [address] Feb, [facility] [place] [facility] [address] [id number] [place] [address] Feb, [facility] [place] [facility] [address] [id number] [place] [address] Feb, [facility] [place] [facility] [address] [id number] [place] [address] Feb, [facility] [place] [facility] [address] [id number] [place] [address] Feb, [facility] [place] [facility] [address] [id number] [place] [address]- [address] Feb, [facility] [place] [facility] [address] [id number] [place] [address]- [address] Feb, [facility] [place] [facility] [address] [id number] [place] [address] Feb, [facility] [place] [facility] [address] [id number] [place] [address] Feb, [facility] [place] [facility] [address] [id number] [place] [address] Feb, [facility] [place] [facility] [address] [id number] [place] [address]- [address] January, [facility] [place] [facility] [address] [id number] [place] [address] January, [facility] [place] [facility] [address] [id number] [place] [address] January, [facility] [place] [facility] [address] [id number] [place] [address]- 14[address] January, [facility] [place] [facility] [address] [id number] [place] [address]- [address] January, [facility] [place] [facility] [address] [id number] [place] [address]- [address] January, [facility] [place] [facility] [address] [id number] [place] [address] January, [facility] [facility] [address] [id number] [place] [address] January, [facility] [place] [facility] [address] [id number] [place] [address] January, [facility] [place] [facility] [address] [id number] [place] [address] 4769 January, [facility] [address] [id number] [place] [address] 6545 January, [facility] [address] [id number] [place] [address] 0648 January, [facility] [place] [facility] [address] [id number] [place] [address]- 2988 January, [facility] [address] [id number] [place] [address] 7070 January, [facility] [address] [id number] [place] [address] 1368 Dec, [facility] [place] [facility] [address] [id number] [place] [address] 7005 Dec, [facility] [place] [address] [id number] [place] [address]- 7117 Dec, [facility] [place] [address] [id number] [place] [address]- 7188 Dec, [facility] [place] [facility] [address] [id number] [place] [address]- 9620 Dec, [facility] [place] [facility] [address] [id number] [place] [address]- 7305 Dec, [facility] [place] [facility] [address] [id number] [place] [address]- 7826 Dec, [facility] [place] [facility] [address] [id number] [place] [address]- 7736 Dec, [facility] [place] [address] [id number] [place] [address]- 3026 Dec, [facility] [address] [id number] [place] [address]- 6807 Dec, [facility] [place] [address] [id number] [place] [address]- 1520 Nov, [facility] [address] [id number] [place] [address]- 50[address] Nov, [facility] [address] [id number] [place] [address]- 6203 Nov, [facility] [address] [id number] [place] [address]- 1159 Nov, [facility] [address] [id number] [place] [address]- 1317 Nov, [facility] [address] [id number] [place] [address]- 1695 Nov, [facility] [address] [id number] [place] [address]- 3367 Nov, [facility] [address] [id number] [place] [address]- 7570 Nov, [facility] [address] [id number] [place] [address]- 2566 Nov, [facility] [address] [id number] [place] [address]- 0956 Nov, [facility] [address] [id number] [place] [address]- 6649 Oct, [facility] [address] [id number] [place] [address]- 9326 Oct, [facility] [address] [id number] [place] [address]- 1196 Oct, [facility] [address] [facility] [id number] [place] [address]- 0296 Oct, [facility] [address] [id number] [place] [address]- 8935 Oct, [facility] [address] [id number] [place] [address]- 2364 Oct, [facility] [address] [facility] [id number] [place] [address]- 5962 Oct, [facility] [address] [facility] [id number] [place] [address]- 8700 Oct, [facility] [address] [facility] [id number] [place] [address]- 3992 Oct, [facility] [address] [facility] [id number] [place] [address]- 7984 Oct, [facility] [address] [facility] [id number] [place] [address]- 8693 Oct, [facility] [address] [facility] [id number] [place] [address]- 0676 Oct, [facility] [address] [facility] [id number] [place] [address]- 7952 Oct, [facility] [address] [id number] [place] [address]- 7128 Oct, [facility] [address] [facility] [id number] [place] [address]- 2809 Sep, [facility] [address] [facility] [id number] [place] [address]- 3571 Sep, [facility] [address] [id number] [place] [address]- 7574 Sep, [facility] [address] [id number] [place] [address]- 4924 Sep, [facility] [address] [id number] [place] [address]- 1458 Sep, [facility] [address] [id number] [place] [address]- 2026 Sep, [facility] [address] [id number] [place] [address]- 6514 Sep, [facility] [address] [id number] [place] [address]- 3057 Sep, [facility] [address] [id number] [place] [address]- 6907 Sep, [facility] [address] [id number] [place] [address]- 8273 Sep, [facility] [address] [id number] [place] [address]- 6502 Aug, [facility] [address] [id number] [place] [address]- 9620 Aug, [facility] [address] [id number] [place] [address]- 1815 Jul, [facility] [address] [id number] [place] [address]- 5929 Jul, [facility] [address] [id number] [place] [address]- 1398 Jul, [facility] [address] [id number] [place] [address]- 6202 Jul, [facility] [address] [id number] [place] [address]- 8554 Jul, [facility] [address] [id number] [place] [address]- 6113 Jul, [facility] [address] [id number] [place] [address]- 9747 Jul, [facility] [address] [id number] [place] [address]- 9174 Jul, [facility] [address] [id number] [place] [address]- 2528 Jul, [facility] [address] [id number] [place] [address]- 5117 Jul, [facility] [address] [id number] [place] [address]- 2918 Jul, [facility] [address] [id number] [place] [address]- 1583 Jul, [facility] [address] [id number] [place] [address]- 4073 Jul, [facility] [address] [id number] [place] [address]- 4673 Jul, [facility] [address] [id number] [place] [address]- 5840 Jul, [facility] [address] [id number] [place] [address]- 7511 Jul, [facility] [address] [id number], [place] [address]- 2875 Jul, [facility] [address] [id number], [place] [address]- 7905 Jul, [facility] [address] [id number] [place] [address]- 9066 Jul, [facility] [address] [id number] [place] [address]- 9945 Jun, [facility] [address] [id number] [place] [address]- 0001 Jun, [facility] [address] [id number] [place] [address]- 4055 16 Jun, 2012 [facility] [address] [id number] [place] [address]- 3186 16 Jun, 2012 [facility] [address] [id number] [place] [address]- 4188 16 Jun, 2012 [facility] [address] [id number] [place] [address]- 7576 16 Jun, 2012 [facility] [address] [id number] [place] [address]- 1696 10 Jun, 2012 [facility] [address] [id number] [place] [address]- 1567 10 Jun, 2012 [facility] [address] [id number] [place] [address]- 9589 09 Jun, 2012 [facility] [address] [id number] [place] [address]- 9010 09 Jun, 2012 [facility] [address] [id number] [place] [address]- 3758 Jun, 2012 [facility] [address] [id number] [place] [address]- 7472 26 May, 2012 [facility] [address] [id number] [place] [address]- 9392 25 Sep, 2012 [facility] [address] [id number] [place] [address]- 254 19 Sep, 2012 [facility] [address] [id number] [place] [address]- 2549 17 Sep, 2012 [facility] [address] [id number] [place] [address]- 2632 11 Sep, 2012 [facility] [address] [id number] [place] [address]- 2542 10 Sep, 2012 [facility] [address] [id number] [place] [address]- 5092 May, [facility] [address] [id number] [place] [address]- 5805 May, [facility] [address] [id number] [place] [address]- 9981 Apr, [facility] [address] [id number] [place] [address]- 7542 Apr, [facility] [address] [id number] [place] [address]- 8321 Apr, [facility] [address] [id number] [place] [address]- 5013 Apr, [facility] [address] [id number] [place] [address]- 6780 Apr, [facility] [address] [id number] [place] [address]- 6518 Mar, [facility] [address] [id number] [place] [address]- 2403 Mar, [facility] [address] [id number] [place] [address]- 0526 Mar, [facility] [address] [id number] [place] [address]- 5106 Mar, [facility] [address] [id number] [place] [address]- 9258 Mar, [facility] [address] [id number], [place] [address]- 2213 Mar, [facility] [address] [id number] [place] [address]- 6416 Mar, [facility] [address] [id number] [place] [address]- 4570 Mar, [facility] [address] [id number] [place] [address]- 4997 Feb, [facility] [address] [id number], [place] [address]- 6091 Feb, [facility] [address] [id number] [place] [address]- 3795 January, [facility] [address] [facility] [id number] [place] [address]- 1041 January, [facility] [address] [facility] [id number] [place] [address]- 9893 Dec, [facility] [address] [facility] [id number] [place] [address]- 0616 Dec, [facility] [address] [id number] [place] [address]- 1064 Nov, [facility] [address] [facility] [id number] [place] [address]- 9366 Nov, [facility] [id number], [place] [address]- 3946 Nov, [facility] [address] [id number] [place] [address]- 5565 Nov, [facility] [address] [id number] [place] [address]- 5852 Oct, [facility] [address] [id number] [place] [address]- 5063 Oct, [facility] [address] [id number] [place] [address]- 2469 Oct, [facility] [address] [facility] [id number], [place] [address]- 4722 Oct, [facility] [address] [facility] [id number] [place] [address]- 8764 16 Oct, 2012 [facility] [address] [facility] [id number], [place] [address]- 0773 14 Oct, 2012 [facility] [address] [id number], [place] [address]- 9003 08 Oct, 2012 [facility] [address] [id number] [place] [address]- 8111 07 Oct, 2012 [facility] [address] [id number] [place] [address]- 4386 03 Oct, 2012 [facility] [address] [id number] [place] [address]- 1853 30 Sep, 2012 [facility] [address] [id number] [place] [address]- 8645 Sep, [facility] [address] [id number] [place] [address]- 5501 Sep, [facility] [address] [id number] [place] [address]- 0724 Sep, [facility] [address] [id number] [place] [address]- 9905 Sep, [facility] [address] [id number] [place] [address]- 3293 Sep, [facility] [address] [id number] [place] [address]- 4309 Sep, [facility] [address] [id number] [place] [address]- 0485 Sep, [facility] [address] [id number] [place] [address]- 2877 Aug, [facility] [address] [id number] [place] [address]- 6548 Aug, [facility] [place] [facility] [address] [id number] [place] [address] 2547 Aug, [facility] [place] [facility] [address] [id number] [place] [address] 2545 Aug, [facility] [address] [id number] [place] [address]- 4583 Aug, [facility] [place] [address] [id number], [place] [address]- 2426 Aug, [facility] [place] [facility] [address] [id number] [place] [address]- 3672 Aug, [facility] [place] [address] [id number], [place] [address]- 8790 Aug, [facility] [place] [facility] [address] [id number] [place] [address]- 3863 Jul, [facility] [place] [facility] [address] [id number] [place] [address]- 6637 Jul, [facility] [place] [facility] [address] [id number] [place] [address], [place] [address]- 2439 Jul, [facility] [place] [facility] [address] [id number] [place] [address]- 6356 Jul, [facility] [place] [facility] [address] [facility] [id number] [place] [address]- 5334 Jul, [facility] [place] [facility] [address] [id number], [place] [address]- 7931 Jul, [facility] [place] [facility] [address] [id number] [place] [address]- 5728 Jun, [facility] [place] [facility] [address] [facility] [id number], [place] [address]- 0151 Jun, [facility] [place] [facility] [address] [id number], [place] [address]- 3043 Jun, [facility] [place] [facility] [address] [id number], [place] [address]- 1736 Jun, [facility] [place] [facility] [address] [id number], [place] [address]- 3320 Jun, [facility] [place] [facility] [address] [facility] [id number], [place] [address]- 9321 Jun, [facility] [place] [facility] [address] [facility] [id number], [place] [address]- 9808 Jun, [facility] [place] [facility] [address] [id number] [place] [address]- 1585 10 Jun, 2012 [facility] [place] [facility] [address] [id number] [place] [address]- 3866 10 Jun, 2012 [facility] [place] [facility] [address] [id number] [place] [address] 2546 26 May, 2012 [facility] [place] [facility] [address] [id number] [place] [address]- 4006 24 May, 2012 [facility] [place] [facility] [address] [id number] [place] [address]- 7698 18 May, 2012 [facility] [place] [facility] [address] [id number] [place] [address]- 8836 Apr, [facility] [place] [facility] [address] [id number] [place] [address]- 9807 Apr, [facility] [place] [facility] [address] [id number] [place] [address]- 7792 Apr, [facility] [place] [facility] [address] [id number] [place] [address]- 2218 Apr, [facility] [place] [facility] [address] [id number] [place] [address]- 3781 Apr, [facility] [place] [facility] [address] [id number] [place] [address]- 5308 Apr, [facility] [place] [facility] [address] [id number] [place] [address]- 4383 Mar, [facility] [place] [facility] [address] [id number] [place] [address]- 3298 Mar, [facility] [place] [facility] [address] [id number] [place] [address]- 3426 Mar, [facility] [place] [facility] [address] [id number] [place] [address] 2546 Mar, [facility] [place] [facility] [address] [id number] [place] [address]- 0332 Feb, [facility] [place] [facility] [address] [id number] [place] [address]- 0980 Feb, [facility] [place] [facility] [address] [id number] [place] [address]- 3959 Feb, [facility] [place] [facility] [address] [id number] [place] [address]- 7017 Feb, [facility] [place] [facility] [address] [id number] [place] [address]- 4625 Feb, [facility] [place] [facility] [address] [id number] [place] [address]- 8797 January, [facility] [place] [facility] [address] [id number] [place] [address]- 3358 January, [facility] [place] [facility] [address] [id number] [place] [address]- 4483 January, [facility] [place] [facility] [address] [id number] [place] [address]- 2964 January, [facility] [place] [facility] [address] [id number] [place] [address]- 3605 January, [facility] [place] [facility] [address] [id number] [place] [address]- 4053 January, [facility] [place] [facility] [address] [id number] [place] [address]- 7527 Dec, [facility] [place] [facility] [address] [id number], [place] [address]- 2358 Dec, [facility] [place] [facility] [address] [id number] [place] [address] Dec, [facility] [place] [facility] [address] [id number] [place] [address] Dec, [facility] [place] [facility] [address] [id number] [place] [address] Dec, [facility] [place] [facility] [address] [id number] [place] [address] 27 Nov, 2011 [facility] [address] [id number] [place] [address] 14 Nov, 2011 [facility] [place] [facility] [address] [id number] [place] [address] 12 Nov, 2011 [facility] [place] [facility] [address] [id number] [place] [address] 07 Nov, 2011 [facility] [place] [facility] [address] [id number] [place] [address] 29 Oct, 2011 [facility] [place] [facility] [address] [id number] [place] [address] 28 Oct, 2011 [facility] [place] [facility] [address] [id number] [place] [address] 24 Oct, 2011 [facility] [place] [facility] [address] [id number] [place] [address] 13 Oct, 2011 [facility] [place] [facility] [address] [id number] [place] [address] 08 Oct, 2011 [facility] [place] [facility] [address] [id number] [place] [address] Sep, [facility] [place] [facility] [address] [facility] [id number] [place] [address] Sep, [facility] [place] [facility] [address] [id number] [place] [address] Sep, [facility] [place] [facility] [address] [id number] [place] [address] Sep, [facility] [place] [facility] [address] [id number] [place] [address] Sep, [facility] [place] [facility] [address] [facility] [id number] [place] [address] Sep, [facility] [place] [facility] [address] [facility] [id number] [place] [address] Aug, [facility] [place] [facility] [address] [id number] [place] [address] Aug, [facility] [place] [facility] [address] [id number] [place] [address] Aug, [facility] [place] [facility] [address] [id number] [place] [address] Jul, [facility] [place] [facility] [address] [id number] [place] [address] Jul, [facility] [place] [facility] [address] [id number] [place] [address] Jul, [facility] [place] [facility] [address] [id number] [place] [address] Jul, [facility] [place] [facility] [address] [id number] [place] [address] Jun, [facility] [place] [facility] [address] [id number] [place] [address] Jun, [facility] [place] [facility] [address] [id number] [place] [address] Jun, [facility] [place] [facility] [address] [id number] [place] [address] Jun, [facility] [place] [facility] [address] [id number] [place] [address] Jun, [facility] [place] [facility] [address] [id number], [place] [address] Jun, [facility] [place] [facility] [address] [id number] [place] [address] Mar, [facility] [place] [facility] [address] [id number] [place] [address] Dec, [facility] [place] [facility] [address] [id number] [place] [address] Dec, [facility] [place] [facility] [address] [id number] [place] [address] 18 Nov, 2010 [facility] [address] [id number] [place] [address] 16 Nov, 2010 [facility] [place] [facility] [address] [id number] [place] [address] 10 Sep, 2010 [facility] [address] [id number] [place] [address] 31 Aug, 2010 [facility] [place] [facility] [address] [id number] [place] [address] 2546 29 Aug, 2010 [facility] [address] [id number] [place] [address] 29 Aug, 2010 [facility] [place] [facility] [address] [id number] [place] [address] 29 Aug, 2010 [facility] [address] [id number] [place] [address] 27 Aug, 2010 [facility] [place] [facility] [address] [id number] [place] [address] 14 Aug, 2010 [facility] [address] [id number] [place] [address] 08 Aug, 2010 [facility] [place] [facility] [address] [facility] [id number] [place] [address] 08 Aug, 2010 [facility] [place] [facility] [address] [id number] [place] [address]- [address] 07 Aug, 2010 [facility] [place] [facility] [address] [id number] [place] [address] 2546 06 Aug, 2010 [facility] [place] [facility] [address] [id number] [place] [address] 2546 06 Aug, 2010 [facility] [place] [facility] [address] [id number] [place] [address] Aug, [facility] [place] [facility] [address] [facility] [id number] [place] [address] 30 Jul, 2010 [facility] [place] [facility] [address] [id number] [place] [address] 30 Jul, 2010 [facility] [place] [facility] [address] [id number] [place] [address]- 8716 30 Jul, 2010 [facility] [place] [facility] [address] [id number] [place] [address]46 Jul, [facility] [place] [facility] [address] [id number] [place] [address] 98[address] Jul, [facility] [place] [facility] [address] [id number] [place] [address]41 Jul, [facility] [place] [facility] [address] [id number] [place] [address]- [address]65 24 Jun, 2010 [facility] [place] [facility] [address] [id number] [place] [address] Jun, [facility] [place] [facility] [address] [id number] [place] [address]- [address] Jun, [facility] [place] [facility] [address] [id number] [place] [address]- [address] Jun, [facility] [place] [facility] [address] [id number] [place] [address]- [address]88 16 Apr, 2010 [facility] [place] [facility] [address] [address] [id number] [place] [address] Mar, [facility] [place] [facility] [address] [id number] [place] [address] Feb, [facility] [place] [facility] [address] [id number] [place] [address] January, [facility] [place] [facility] [address] [id number] [place] [address] 15 Dec, 2009 [facility] [place] [facility] [address] [id number] [place] [address] 11 Nov, 2009 [facility] [place] [facility] [address] [id number] [place] [address] Aug, [facility] [place] [facility] [address] [id number], [place] [address] Aug, [facility] [place] [facility] [address] [id number], [place] [address] Aug, [facility] [place] [facility] [address] [facility] [id number], [place] [address] Jul, [facility] [place] [facility] [address] [id number], [place] [address] Jul, [facility] [place] [facility] [address] [id number], [place] [address] Jul, [facility] [place] [facility] [address] [facility] [id number][place] Jun, [facility] [place] [facility] [address] [id number], [place] [address] Jun, [facility] [place] [facility] [address] [id number], [place] [address] Jun, [facility] [place] [facility] [address] [id number], [place] [address] Jun, [facility] [place] [facility] [address] [facility] [id number], [place] [address] Jun, [facility] [place] [facility] [address] [id number], [place] [address] Jun, [facility] [place] [facility] [address] [id number], [place] [address] Apr, [facility] [place] [facility] [address] [id number], [place] [address] Apr, [facility] [place] [facility] [address] [facility] [id number], [place] [address] Feb, [facility] [place] [facility] [address] [facility] [id number], [place] [address] January, [facility] [place] [facility] [address] [facility] [id number] [place] [address] Dec, IMMUNIZATIONS No Known Immunizations SOCIAL HISTORY Never Assessed REASON FOR VISIT Right leg infection [facility] PT has a sore on the back of his right leg just below the calf muscle, Sore has been present for almost two weeks PLAN OF CARE Activity Details Follow Up prn Reason: VITAL SIGNS Height 67 in 2018-02-28 Weight 355 lbs 2018-02-28 Temperature 98.6 degrees Fahrenheit 2018-02-28 Heart Rate 62 bpm 2018-02-28 Respiratory Rate 20 2018-02-28 BMI 55.59 kg/m2 2018-02-28 Blood pressure systolic 160 mmHg 2018-02-28 Blood pressure diastolic 80 mmHg 2018-02-28 MEDICATIONS Medication Instructions Dosage Frequency Start Date End Date Duration Status Vitamin D3 1,000 unit 2 capsule by Oral route 1 time per day Apr, Active Victoza 18 MG/3ML INJECT 1.8MG SUBCUTANEOUSLY ONCE DAILY 90 Active Furosemide 20 MG Orally Once a day 3 tablets 24h Mar, 30 Active Singulair 10 mg Orally Once a day 1 Tablet by Oral route 1 time per day 24h Nov, 90 days Active Trintellix 20 MG Orally Once a day 1 tablet 24h Active Glucocard Expression Test - as directed Sep, Active Atorvastatin Calcium 20 MG Orally Once a day 1 tablet at bedtime 24h Active Abilify 30 MG TAKE ONE TABLET BY MOUTH ONCE DAILY 30 Active Imbruvica 140 MG Orally Once a day 3 capsules in the evening 24h Oct, Active Zetia 10 MG Orally Once a day 1 tablet 24h Active Zofran 4 MG Orally 3 times a day prn nausea and vomiting 1 tablet 5 Active Gabapentin 300 MG Orally 3 times a day 2 capsules 8h Mar, Active Percocet 10-325 MG Orally 4 times a day 1 tablet as needed 6h January, 28 days Active Naproxen 500 MG TAKE ONE TABLET BY MOUTH EVERY 12 HOURS NEEDED FOR HEADACHE 90 Active Symbicort 80-4.5 MCG/ACT Inhalation Twice a day 2 puffs 12h 30 Active Clopidogrel Bisulfate 75 MG Orally Once a day 1 tablet 24h 90 Active Ventolin HFA 108 (90 Base) MCG/ACT Inhalation every 4 hrs 2 puffs as needed 4h 30 Active NovoLog Flexpen 100 UNIT/ML INJECT 30 UNITS SUBCUTANEOUSLY WITH BREAKFAST, 30 UNITS WITH LUNCH AND 40 UNITS WITH EVENING MEAL 90 Active Metoprolol Succinate ER 50 mg Orally twice a day 1 tablet 12h 90 Active Voltaren 1 % Transdermal every 4-6 hours as needed 4grams to knee and hip 5 Active Clonidine HCl 0.1 MG Orally 2 times a day 1 tablet 12h 90 Active Bactrim DS 800-160 MG Orally Twice a day 1 tablet 12h Feb,Feb 07 days Active Allopurinol 300 MG Orally Once a day 1 tablet 24h Mar, 90 days Active Levemir 100 UNIT/ML Subcutaneous 2 times a day inject 100 units 12h 14 Oct 30 days Active Flomax 0.4 mg Orally Once a day 1 capsule 30 minutes after the same meal each day 24h 90 Active Potassium Chloride Kathi ER 20 MEQ Orally Once a day 1 tablet with food 24h 30 days Active Fluticasone Propionate 50 MCG/ACT Nasally Once a day 1 spray in each nostril 24h 30 Active Nexium 40 MG Orally Once a day 1 capsule 24h 90 Active Valium 5 mg Orally Twice a day as needed for anxiety 1 tablet Oct, 30 days Active Silver Sulfadiazine 1 % Externally Once a day 1 application to affected area 24h Feb, Active Losartan Potassium 100 MG Orally Once a day 1 tablet 24h Active Incruse Ellipta 62.5 MCG/INH Inhalation Once a day 1 puff 24h 90 Active Ambien 10 mg Orally at bedtime as needed for sleep 1 tablet Nov, 30 days Active Aspirin 81 mg 1 tablet by Oral route 1 time per day Apr, Active RESULTS No Results PROCEDURES Procedure Date Ordered Result Body Site [facility] VISIT ESTABLISHED PATIENT February 28, 2018 INSTRUCTIONS MEDICATIONS ADMINISTERED No Known Medications MEDICAL (GENERAL) HISTORY Type Description Date Medical History type II diabetes Medical History coronary artery disease stress test 01/5015 Medical History chronic obstructive pulmonary disease (COPD) Medical History gastroesophageal reflux disease (GERD) Medical History acute renal failure Medical History erectile dysfunction Medical History hyperlipidemia Medical History obesity Medical History skin cancer-basal cell R christianity (removed) Medical History Arthritis Medical History degenerative [...] History resection of skin cancer from Right christianity Surgical History Biopsy of Lung Bilateral/Left lung lymph node 09/2016 Surgical History Bone Marrow Biopsy Surgical History port in the right chest wall 12/2016 Hospitalization History [facility] low potassium, low magnesium, chest painina 01/2015 Hospitalization History inability to urinate 09/16/15 Hospitalization History [facility] mental health early 1999' Hospitalization History hyperkalemia 10/2017 Hospitalization History fluid in lung
--- OUTSIDE RECORDS SUMMARY | 2018-08-08 14:06 | XMS REPORT ---
Author Author ROSELINE LUIS Organization [facility] Address [address] [place] [address] Care Team Providers Care Drier Name Role Phone ROSELINE LUIS Unavailable PROBLEMS Type Condition ICD9-CM Code ZRO39-LK Code Onset Dates Condition Status SNOMED Code Problem Chronic lymphocytic leukemia C91.10 Active 06496089 Problem Lymphocytosis D72.820 Active 68871199 Problem Eye exam abnormal R93.8 Active 404585577 Problem Eustachian tube dysfunction, unspecified laterality H69.80 Active 66378665 Problem Essential hypertension I10 Active 46150061 Problem Dysuria R30.0 Active 41989476 Problem Diabetic polyneuropathy associated with type 2 diabetes mellitus E11.42 Active 00605540 Problem Cough R05 Active 62155962 Problem Polyneuropathy associated with underlying disease G63 Active 837584230 Problem Retinal edema H35.81 Active 4916586 Problem Bilateral primary osteoarthritis of knee M17.0 Active 374216214 Problem Primary osteoarthritis of right knee M17.11 Active 046034857244610 Problem Pure hypercholesterolemia E78.00 Active 090834636 Problem DM neuro manif type II E11.49 Active 35593085 Problem Benign prostatic hyperplasia with lower urinary tract symptoms, unspecified morphology N40.1 Active 037571356 Problem Hypokalemia E87.6 Active 20119912 Problem 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 Active 943481749 Problem Anemia of chronic illness D63.8 Active 909239400 Problem Bipolar disorder, in partial remission, most recent episode depressed F31.75 Active 41988676 Problem Falling R29.6 Active 149038385 Problem Leukocytosis D72.829 Active 347028295 Problem Reactive airway disease J45.909 Active 552499529005 Problem Diabetes E11.9 Active 53231186 Problem Chronic pain G89.29 Active 98348101 Problem Anxiety F41.9 Active 66334635 Problem Morbid obesity E66.01 Active 980824787 Problem Bipolar I disorder, most recent episode (or current) mixed, moderate F31.62 Active 61876351 Problem Insomnia, unspecified type G47.00 Active 928990224 ALLERGIES No Information ENCOUNTERS Encounter Location Date Diagnosis [facility] [id number] [place] [address] 07534- 4776 Jun, [facility] [id number] [place] [address] 29696- 7846 Apr, [facility] [address] 58371- 2096 Apr, Chronic pain G89.29 [facility] [address] 01279- 4906 Apr, Primary osteoarthritis of right knee M17.11 [facility] [address] 86393- 7171 Mar, [facility] [address] 40499- 8987 Mar, BMI 50.0-59.9, adult Z68.43 and Bipolar disorder, in partial remission, most recent episode depressed F31.75 [facility] [address] 86403- 3756 Mar, Diabetes E11.9 ; Pure hypercholesterolemia E78.00 ; Essential hypertension I10 ; Nausea with vomiting, unspecified R11.2 and Headache, unspecified headache type R51 [facility] [id number] [place] [address] 51246- 9369 Mar, Bipolar I disorder, most recent episode (or current) mixed, moderate F31.62 [facility] [id number] [place] [address] 14494- 2030 Mar, Bipolar I disorder, most recent episode (or current) mixed, moderate F31.62 [facility] [id number] [place] [address] 74062- 4699 Mar, Chronic pain G89.29 [facility] [address] 68778- 4801 Mar, Bipolar I disorder, most recent episode (or current) mixed, moderate F31.62 [facility] [address] [place] [address] 92608- 7265 Feb, Bipolar I disorder, most recent episode (or current) mixed, moderate F31.62 [facility] [address] [address] 7991 Feb, Chronic pain G89.29 [facility] [id number] [place] [address] 85558- 1841 Feb, Decubitus ulcer of right foot, stage 3 L89.893 and BMI 50.0- 59.9, adult Z68.43 [facility] [address] [address]- 6636 Feb, Bipolar I disorder, most recent episode (or current) mixed, moderate F31.62 [facility] [id number] [place] [address] 46819- 6920 Feb, [facility] [id number] [place] [address] 10334- 3828 January, [facility] [id number] [place] [address] 44386- 5318 January, Chronic pain G89.29 [facility] [address] [address]- 1574 January, Bipolar I disorder, most recent episode (or current) mixed, moderate F31.62 [facility] [address] [address]- 5406 January, Bipolar I disorder, most recent episode (or current) mixed, moderate F31.62 [facility] [address] [address]- 5218 Dec, Bipolar I disorder, most recent episode (or current) mixed, moderate F31.62 and BMI 50.0-59.9, adult Z68.43 [facility] [id number] [place] [address] 43096- 1902 Dec, Bipolar I disorder, most recent episode (or current) mixed, moderate F31.62 [facility] [id number] [place] [address] 19487- 5628 Dec, Chronic pain G89.29 [facility] [address] 25313- 9429 Dec, DM neuro manif type II E11.49 ; Right flank pain R10.9 ; senior living 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 Z79.891 ; Encounter for medication monitoring Z51.81 and BMI 50.0-59.9, adult Z68.43 [facility] [id number] [place] [address] 15507- 4746 Dec, Bipolar I disorder, most recent episode (or current) mixed, moderate F31.62 [facility] [address] 97965- 1017 Nov, Bipolar I disorder, most recent episode (or current) mixed, moderate F31.62 [facility] [address] 72548- 6047 Nov, Chronic pain G89.29 [facility] [id number] [place] [address] 02921- 7556 Nov, Bipolar I disorder, most recent episode (or current) mixed, moderate F31.62 [facility] [id number] [place] [address] 99632- 8661 Nov, Hypokalemia E87.6 [facility] [address] 17690- 3255 Nov, Bipolar I disorder, most recent episode (or current) mixed, moderate F31.62 [facility] [id number] [place] [address] 79655- 8144 Oct, Chronic pain G89.29 [facility] [address] [place] [address]- 0358 Oct, BMI 50.0-59.9, adult Z68.43 and Bipolar I disorder, most recent episode (or current) mixed, moderate F31.62 [facility] [id number] [place] [address] 10317- 8285 Oct, Bipolar I disorder, most recent episode (or current) mixed, moderate F31.62 [facility] [id number] [place] [address] 14327- 3972 Oct, [facility] [address] 33898- 3544 Oct, Hypokalemia E87.6 [facility] [id number] [place] [address] 10979- 8999 Oct, DM neuro manif type II E11.49 [facility] [id number] [place] [address] 84546- 9459 Oct, Bipolar I disorder, most recent episode (or current) mixed, moderate F31.62 [facility] [id number] [place] [address] 82023- 2292 Oct, Bipolar I disorder, most recent episode (or current) mixed, moderate F31.62 [facility] [id number] [place] [address] 92746- 8105 14 Oct, 2017 Hyperkalemia E87.5 ; Falling R29.6 ; BMI 50.0-59.9, adult Z68.43 and Acute left ankle pain M25.572 [facility] [id number] [place] [address] 62715- 9383 Oct, DM neuro manif type II E11.49 [facility] [id number] [place] [address] 45182- 3863 Oct, [facility] [id number] [place] [address] 80554- 8780 Sep, Chronic pain G89.29 [facility] [id number] [place] [address] 46545- 6396 Sep, [facility] [id number] [place] [address] 49151- 3353 Sep, Bilateral primary osteoarthritis of knee M17.0 [facility] [address] 01244- 2143 Sep, Generalized edema R60.1 [facility] [id number] [place] [address] 44425- 1819 Sep, Bipolar I disorder, most recent episode (or current) mixed, moderate F31.62 [facility] [address] 81516- 9352 Sep, Hypoxia R09.02 ; Other hypervolemia E87.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 ; Anemia of chronic illness D63.8 and BMI 50.0- 59.9, adult Z68.43 [facility] [id number] [place] [address] 00002- 7676 Sep, [facility] [id number] [place] [address] 19542- 5463 Sep, Bipolar I disorder, most recent episode (or current) mixed, moderate F31.62 [facility] [id number] [place] [address] 37436- 3163 Aug, Chronic pain G89.29 [facility] [id number] [place] [address] 54455- 4609 Aug, Generalized edema R60.1 [facility] [id number] [place] [address] 06684- 1590 Aug, [facility] [id number] [place] [address] 40407- 9877 Aug, [facility] [address] [address]- 2982 14 Aug, 2017 Bipolar I disorder, most recent episode (or current) mixed, moderate F31.62 [facility] [address] [place] [address]60 07 Aug, 2017 Bipolar I disorder, most recent episode (or current) mixed, moderate F31.62 [facility] [id number] [place] [address] 75768- 7623 04 Aug, 2017 Chronic pain G89.29 [facility] [id number] [place] [address] 73139- 5256 30 Jul, 2017 Bipolar I disorder, most recent episode (or current) mixed, moderate F31.62 [facility] [id number] [place] [address] 31818- 0195 Jul, Bipolar I disorder, most recent episode (or current) mixed, moderate F31.62 and BMI 60.0-69.9, adult Z68.44 [facility] [id number] [place] [address] 54762- 7333 16 Jul, 2017 Bipolar I disorder, most recent episode (or current) mixed, moderate F31.62 [facility] [address] [place] [address] 28858- 5869 Jul, Chronic pain G89.29 [facility] [id number] [place] [address] 68166- 9750 02 Jul, 2017 Bipolar I disorder, most recent episode (or current) mixed, moderate F31.62 [facility] [address] [place] [address] 12680- 9077 18 Jun, 2017 Polyneuropathy associated with underlying disease G63 and Diabetes E11.9 [facility] [id number] [place] [address] 41347- 3040 16 Jun, 2017 Bipolar I disorder, most recent episode (or current) mixed, moderate F31.62 [facility] [id number] [place] [address] 62848- 6625 09 Jun, 2017 Chronic pain G89.29 [facility] [address] [place] [address] 767690- 8108 27 May, 2017 Bipolar I disorder, most recent episode (or current) mixed, moderate F31.62 [facility] [address] [place] [address] 34852- 7714 21 May, 2017 Bipolar I disorder, most recent episode (or current) mixed, moderate F31.62 [facility] [id number] [place] [address] 73898- 8138 20 May, 2017 Diabetic polyneuropathy associated with type 2 diabetes mellitus E11.42 [facility] [id number] [place] [address] 67590- 5699 18 May, 2017 Bipolar I disorder, most recent episode (or current) mixed, moderate F31.62 [facility] [id number] [place] [address] 92797- 7699 13 May, 2017 Bipolar I disorder, most recent episode (or current) mixed, moderate F31.62 [facility] [id number] [place] [address] 38711- 4019 May, Chronic pain G89.29 [facility] [address] [place] [address] 28279- 2315 Apr, Bipolar I disorder, most recent episode (or current) mixed, moderate F31.62 [facility] [address] [place] [address] 66828- 4291 Apr, [facility] [address] [place] [address] 28620- 6253 Apr, Chronic pain G89.29 and DM neuro manif type II E11.49 [facility] [address] [place] [address] 31538- 7371 Apr, [facility] [id number] [place] [address] 39432- 9231 Apr, Bipolar I disorder, most recent episode (or current) mixed, moderate F31.62 [facility] [address] [place] [address] 99733- 7366 Apr, Chronic pain G89.29 [facility] [id number] [place] [address] 63454- 5636 Apr, Iliotibial band syndrome, left M76.32 [facility] [id number] [place] [address] 875496- 8533 Apr, Bipolar I disorder, most recent episode (or current) mixed, moderate F31.62 [facility] [id number] [place] [address] 82632- 2609 Mar, Bipolar I disorder, most recent episode (or current) mixed, moderate F31.62 [facility] [id number] [place] [address] 68774- 8289 Mar, Bipolar I disorder, most recent episode (or current) mixed, moderate F31.62 [facility] [address] [place] [address] 14913- 6983 Mar, [facility] [id number] [place] [address] 03779- 7918 Mar, Bipolar I disorder, most recent episode (or current) mixed, moderate F31.62 [facility] [address] [place] [address] 59168- 0844 Mar, Chronic pain G89.29 [facility] [id number] [place] [address] 51769- 6516 Mar, Bipolar I disorder, most recent episode (or current) mixed, moderate F31.62 [facility] [id number] [place] [address] 73914- 1714 Mar, Bipolar I disorder, most recent episode (or current) mixed, moderate F31.62 [facility] [address] [place] [address] 11226- 6723 06 Saul, 2017 Acute pain of left knee M25.562 ; Left hip pain M25.552 ; Generalized edema R60.1 and Tongue swelling R22.0 [facility] [id number] [place] [address] 89114- 1776 Mar, [facility] [id number] [place] [address] 41157- 9588 Feb, Chronic pain G89.29 [facility] [id number] [place] [address] 07890- 6551 Feb, Diabetes E11.9 [facility] [id number] [place] [address] 66798- 5319 January, Chronic pain G89.29 [facility] [id number] [place] [address] 28992- 3206 January, [facility] [id number] [place] [address] 67224- 2036 January, Bipolar I disorder, most recent episode (or current) mixed, moderate F31.62 [facility] [id number] [place] [address] 59280- 8000 Dec, Bipolar I disorder, most recent episode (or current) mixed, moderate F31.62 [facility] [id number] [place] [address] 14514- 5729 Dec, Chronic pain G89.29 [facility] [id number] [place] [address] 31120- 8234 Dec, Bipolar I disorder, most recent episode (or current) mixed, moderate F31.62 [facility] [address] [place] [address] 35607- 2723 Dec, Diabetes E11.9 ; Essential hypertension I10 ; Chronic pain G89.29 and Morbid obesity E66.01 [facility] [id number] [place] [address] 71121- 8790 Dec, [facility] [id number] [place] [address] 79611- 8816 Dec, Bipolar I disorder, most recent episode (or current) mixed, moderate F31.62 [facility] [address] [address] 2546 Dec, Bipolar I disorder, most recent episode (or current) mixed, moderate F31.62 [facility] [address] [address]- 6396 Nov, Chronic pain G89.29 [facility] [address] [address] 2546 Nov, Bipolar I disorder, most recent episode (or current) mixed, moderate F31.62 [facility] [address] [address]- 5436 Nov, [facility] [address] [address]- 3926 Nov, Bipolar I disorder, most recent episode (or current) mixed, moderate F31.62 [facility] [address] [address]- 3086 Nov, Bipolar I disorder, most recent episode (or current) mixed, moderate F31.62 [facility] [address] [address]- 5866 Nov, [facility] [address] [address]- 1346 Nov, [facility] [id number] [address] 2546 Nov, [facility] [id number] [address]- 4886 Oct, Chronic pain G89.29 [facility] [id number] [address]- 1236 Oct, Bipolar I disorder, most recent episode (or current) mixed, moderate F31.62 [facility] [id number] [address]- 0507 Oct, [facility] [id number] [place] [address] 22729- 2436 Oct, Chronic pain G89.29 ; Diabetes E11.9 ; Anxiety F41.9 and 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 [facility] [id number] [place] [address] 39964- 5446 Oct, [facility] [id number] [place] [address] 77662- 2546 Oct, Diabetes E11.9 [facility] [id number] [place] [address] 29154 2544 Oct, Bipolar I disorder, most recent episode (or current) mixed, moderate F31.62 [facility] [id number] [place] [address] 37694- 5586 Sep, Chronic pain G89.29 [facility] [id number] [place] [address] 93088- 9363 Sep, Chronic pain G89.29 [facility] [id number] [place] [address] 54954- 0316 Aug, Chronic pain G89.29 [facility] [id number] [place] [address] 60093- 9836 Jul, [facility] [id number] [place] [address] 81430 2542 Jul, Diabetes E11.9 [facility] [address] [place] [address] 53649 2546 Jul, Chronic pain G89.29 [facility] [id number] [place] [address] 64077- 2541 Jul, Bipolar I disorder, most recent episode (or current) mixed, moderate F31.62 [facility] [id number] [place] [address] 82638- 5941 Jun, Bipolar I disorder, most recent episode (or current) mixed, moderate F31.62 [facility] [id number] [place] [address] 76876- 4011 Jun, [facility] [id number] [place] [address] 61273- 3994 Jun, Bipolar I disorder, most recent episode (or current) mixed, moderate F31.62 [facility] [id number] [place] [address] 94498- 3490 May, Insomnia, unspecified type G47.00 [facility] [id number] [place] [address] 48093- 6403 May, Bipolar I disorder, most recent episode (or current) mixed, moderate F31.62 [facility] [id number] [place] [address] 30912- 9841 May, [facility] [id number] [place] [address] 21103- 2728 May, Bipolar I disorder, most recent episode (or current) mixed, moderate F31.62 [facility] [id number] [place] [address] 85664- 2221 May, Diabetes E11.9 and Essential hypertension I10 [facility] [id number] [place] [address] 63933- 8029 Apr, Chronic pain G89.29 [facility] [id number] [place] [address] 17771- 4599 Apr, Bipolar I disorder, most recent episode (or current) mixed, moderate F31.62 [facility] [id number] [place] [address] 60049- 3692 Apr, [facility] [id number] [place] [address] 04413- 5978 Apr, [facility] [id number] [place] [address] 61598- 2142 Mar, Chronic pain G89.29 ; Headache, unspecified headache type R51 ; Neuropathy G62.9 ; Pain of right hip joint M25.551 and Essential hypertension I10 [facility] [id number] [place] [address] 71402- 3204 Mar, Chronic pain G89.29 [facility] [id number] [place] [address] 87461- 7240 Mar, Bipolar I disorder, most recent episode (or current) mixed, moderate F31.62 [facility] [id number] [place] [address] 22248- 1046 Feb, Bipolar I disorder, most recent episode (or current) mixed, moderate F31.62 and Insomnia, unspecified type G47.00 [facility] [id number] [place] [address] 31196- 5693 Feb, Chronic pain G89.29 [facility] [address] 04939- 7145 Feb, Bipolar I disorder, most recent episode (or current) mixed, moderate F31.62 [facility] [id number] [place] [address] 22879- 1271 January, Bipolar I disorder, most recent episode (or current) mixed, moderate F31.62 [facility] [id number] [place] [address] 08941- 0668 January, Chronic pain G89.29 [facility] [id number] [place] [address] 91190- 7163 January, Chronic pain G89.29 and Essential hypertension I10 [facility] [id number] [place] [address] 95776- 2110 January, Bipolar I disorder, most recent episode (or current) mixed, moderate F31.62 [place] [id number] [place] [address] 31965- 6646 Dec, [place] [address] [address] Dec, [facility] [id number] [place] [address] 63760- 4725 Dec, [facility] [id number] [place] [address] 31409- 7654 Dec, [facility] [id number] [place] [address] 76689- 7513 Nov, Reactive airway disease J45.909 [facility] [id number] [place] [address] 16408- 9996 Nov, [facility] [id number] [place] [address] 90435- 8396 Nov, [facility] [id number] [place] [address] 32421- 7056 Nov, [facility] [id number] [place] [address] 40358- 8129 Nov, [facility] [id number] [place] [address] 94052- 8303 Nov, Onychomycosis B35.1 ; [place] M20.40 ; [place] or callus L84 and DM neuro manif type II E11.49 [facility] [id number] [place] [address] 22278- 7174 Nov, Chronic pain G89.29 ; Leukocytosis D72.829 and Diabetes E11.9 [facility] [id number] [place] [address] 23432- 2719 Nov, [facility] [id number] [place] [address] 48243- 4901 Oct, Bronchitis J40 [facility] [id number] [place] [address] 18101- 9996 Oct, [facility] [id number] [place] [address] 59516- 0022 Oct, [facility] [id number] [place] [address] 65536- 5627 Oct, Mastoiditis, unspecified laterality H70.90 and Type 2 diabetes mellitus with complication E11.8 [facility] [id number] [place] [address] 33960- 0780 Sep, [facility] [address] [address]- 6079 Sep, Dysuria R30.0 ; Cough R05 ; Benign prostatic hyperplasia with lower urinary tract symptoms, unspecified morphology N40.1 ; Hypokalemia E87.6 and Eustachian tube dysfunction, unspecified laterality H69.80 [facility] [id number] [place] [address] 33026- 9113 Sep, Moderate mixed bipolar I disorder F31.62 [place] [address] 9[address]61- 9171 Sep, Hypokalemia E87.6 [facility] [address] 18247- 9561 Sep, [facility] [id number] [place] [address] 14558- 8783 Sep, Upper respiratory tract infection, unspecified type J06.9 [place] [id number] [place] [address] 32663- 2207 Aug, [facility] [id number] [place] [address] 88113- 9941 Aug, Dysuria R30.0 [facility] [id number] [place] [address] 03197- 0614 Aug, [facility] [id number] [place] [address] 52066- 3757 Jul, [facility] [id number] [place] [address] 49547- 4815 Jul, [place] [address] [address]- 1572 Jul, [facility] [address] [address]- 1391 Jul, [facility] [address] [address]- 6759 Jun, [facility] [id number] [place] [address] 859181- 8355 Jun, [facility] [address] [address]- 7443 Jun, [facility] [id number] [place] [address] 36550- 5784 May, [facility] [address] [address]- 6909 May, Bipolar I disorder, most recent episode (or current) mixed, moderate 296.62 [facility] [address] [address]- 9441 May, [facility] [address] [place] [address] 32475- 1647 May, Bipolar I disorder, most recent episode (or current) mixed, moderate 296.62 and Major depressive disorder, recurrent episode, severe, specified as with psychotic behavior 296.34 [facility] [address] [address]- 2888 May, Bipolar I disorder, most recent episode (or current) mixed, moderate 296.62 [facility] [address] [address]- 9518 May, [facility] [id number] [address]- 9764 Apr, [facility] [address] [address]- 8921 Apr, [facility] [id number] [address]- 0268 Apr, Unspecified disorder of kidney and ureter 593.9 and Diabetes mellitus type 2, uncontrolled 250.02 [facility] [address] [address]- 5339 Apr, [facility] [address] [address]- 4175 Apr, [facility] [id number] [place] [address] 93828- 5925 Apr, [facility] [id number] [place] [address] 07940- 0372 Apr, [facility] [id number] [place] [address] 42814- 8572 Apr, Diabetes mellitus type II, uncontrolled 250.02 [facility] [address] [place] [address] 09348- 9451 Apr, [facility] [id number] [place] [address] 72397- 8284 Mar, [facility] [id number] [place] [address] 38807- 9559 Mar, [facility] [address] [address]- 3063 Mar, [facility] [address] [address]- 8055 Mar, Major depressive disorder, recurrent episode, severe, specified as with psychotic behavior 296.34 and Bipolar I disorder, most recent episode (or current) mixed, moderate 296.62 [facility] [address] [place] [address] 61621- 2302 Mar, Diabetes 250.00 ; Anuria 788.5 ; Nausea and vomiting 787.01 and Diarrhea 787.91 [facility] [address] [address]- 9231 Mar, Diabetes 250.00 [facility] [id number] [address]- 7113 Mar, [facility] [address] [address]- 9553 Mar, Diabetes 250.00 [facility] [address] [address]- 1619 Mar, [facility] [id number] [place] [address] 67654- 7313 Mar, [facility] [address] [address]- 1523 Mar, [facility] [address] [place] [address] 55625- 4826 Mar, [facility] [address] [address]- 6433 Mar, Bipolar I disorder, most recent episode (or current) mixed, moderate 296.62 and Major depressive disorder, recurrent episode, severe, specified as with psychotic behavior 296.34 [facility] [address] [address]- 4834 Mar, Magnesium deficiency 275.2 ; Hypokalemia 276.8 ; Nausea & vomiting 787.01 and Diabetes mellitus type 2, uncontrolled 250.02 [facility] [address] [address]- 4405 Feb, [facility] [address] [address]- 0873 Feb, Bipolar I disorder, most recent episode (or current) mixed, moderate 296.62 [facility] [address] [address]- 8341 Feb, Nausea and vomiting 787.01 ; Left elbow pain 719.42 ; Anuria 788.5 and Diabetes 250.00 [facility] [address] [address]- 0445 Feb, [facility] [id number] [address]- 8042 Feb, Hypopotassemia 276.8 and Hypokalemia 276.8 [facility] [id number] [place] [address] 57432- 6491 Feb, Hypopotassemia 276.8 and Hypokalemia 276.8 [facility] [id number] [place] [address] 24622- 7146 Feb, Seborrheic keratoses 702.19 [facility] [id number] [place] [address] 95544- 9271 Feb, Hypopotassemia 276.8 and Low magnesium levels 275.2 [facility] [id number] [place] [address] 26523- 1227 January, [facility] [id number] [place] [address] 89991- 6383 January, [facility] [id number] [place] [address] 31455- 8247 January, [facility] [id number] [place] [address] 85563- 8820 January, Scalp lesion 709.9 [facility] [id number] [place] [address] 11924- 4006 January, [facility] [id number] [place] [address] 74277- 5962 Dec, Tear of medial cartilage or meniscus of knee, current 836.0 and 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 [facility] [address] [address]- 7347 Dec, [facility] [id number] [place] [address] 08838- 0357 Dec, [facility] [address] [address]- 3142 Dec, Squamous cell carcinoma, 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 [facility] [address] [id number] [place] [address]- 1342 14 Dec, 2014 [facility] [place] [facility] [address] [id number] [place] [address]- 9129 13 Dec, 2014 [facility] [place] [facility] [address] [id number] [place] [address]- 9705 Nov, [facility] [place] [facility] [address] [id number] [place] [address]- 4659 Nov, [facility] [place] [facility] [address] [id number] [place] [address]- 9035 Nov, [facility] [place] [facility] [address] [id number] [place] [address]- 0963 Nov, [facility] [place] [facility] [address] [id number] [place] [address]- 1179 Nov, [facility] [place] [facility] [address] [id number] [place] [address]- 8164 Nov, [facility] [place] [facility] [address] [id number] [place] [address]- 4291 Nov, [facility] [place] [facility] [address] [id number] [place] [address]- 1692 Nov, [facility] [place] [facility] [address] [id number] [place] [address]- 7677 Nov, [facility] [place] [facility] [address] [id number] [place] [address]- 7625 Nov, [facility] [place] [facility] [address] [id number] [place] [address]- 5044 Nov, [facility] [place] [facility] [address] [id number] [place] [address]- 3726 Nov, [facility] [place] [facility] [address] [id number] [place] [address]- 4348 Oct, [facility] [place] [facility] [address] [id number] [place] [address]- 5335 Oct, 2014 [facility] [place] [facility] [address] [id number] [place] [address]- 8831 Oct, 2014 [facility] [place] [facility] [address] [id number] [place] 3832 Oct, 2014 [facility] [place] [facility] [address] [facility] [id number] [place] [address]- 2363 Oct, 2014 [facility] [place] [facility] [address] [id number] [place] [address]- 6149 Oct, 2014 [facility] [place] [facility] [address] [id number] [place] [address]- 0530 Oct, 2014 [facility] [place] [facility] [address] [facility] [id number] [place] [address]- 6609 Oct, 2014 [facility] [place] [facility] [address] [facility] [id number] [place] [address]- 6397 Oct, 2014 [facility] [place] [facility] [address] [facility] [id number] [address]- 7843 Sep, [facility] [place] [facility] [address] [facility] [id number] [place] [address]- 2237 Sep, [facility] [place] [facility] [address] [facility] [id number] [place] [address]- 1391 Sep, [facility] [place] [facility] [address] [facility] [id number] [place] [address]- 5937 Sep, [facility] [place] [facility] [address] [facility] [id number] [place] [address]- 6380 Sep, [facility] [place] [facility] [id number] [place] [address]- 7578 Sep, [facility] [place] [facility] [address] [facility] [id number] [address]- 7206 Sep, [facility] [place] [facility] [address] [facility] [id number] [place] [address]- 6340 Sep, [facility] [place] [facility] [address] [id number] [place] [address]- 3749 Sep, [facility] [place] [facility] [address] [id number] [place] [address]- 9640 Sep, [facility] [place] [facility] [address] [id number] [place] [address]- 5906 Sep, [facility] [place] [facility] [address] [id number] [place] [address]- 9027 Sep, [facility] [place] [facility] [address] [id number] [place] [address]- 8472 Sep, [facility] [place] [facility] [address] [id number] [place] [address]- 0605 Sep, [facility] [place] [facility] [address] [id number] [place] [address]- 5059 Sep, [facility] [place] [facility] [address] [id number] [place] [address]- 1013 Sep, [facility] [place] [facility] [address] [id number] [place] [address]- 8784 Aug, [facility] [place] [facility] [address] [id number] [place] [address]- 2109 Aug, [facility] [place] [facility] [address] [id number] [place] [address]- 9646 Aug, [facility] [place] [facility] [address] [id number] [place] [address]- 6986 31 Aug, 2014 [facility] [place] [facility] [address] [id number] [place] [address]- 5333 Aug, [facility] [place] [facility] [address] [id number] [place] [address]- 7679 31 Aug, 2014 [facility] [place] [facility] [address] [id number] [place] [address]- 0856 17 Aug, 2014 [facility] [place] [facility] [address] [id number] [place] [address]- 6964 Aug, [facility] [address] [id number] [place] [address]- 4347 Aug, [facility] [address] [id number] [place] [address]- 7489 Aug, [facility] [address] [id number] [place] [address]- 0503 Aug, [facility] [address] [place] [id number] Aug, [facility] [address] [id number] [place] [address]- 9014 Aug, [facility] [address] [id number] [place] [address]- 1978 Aug, [facility] [address] [id number] [place] [address]- 2406 Aug, [facility] [address] [id number] [place] [address]- 6681 Aug, [facility] [address] [id number] [place] [address]- 9526 Aug, [facility] [address] [id number] [place] [address]- 1461 Aug, [facility] [address] [id number] [place] [address]- 2052 Aug, [facility] [place] [facility] [address] [id number] [place] [address]- 5018 Aug, [facility] [address] [id number] [place] [address]- 2501 Aug, [facility] [place] [facility] [address] [id number] [place] [address]- 5355 Aug, [facility] [address] [id number] [place] [address]- 7951 Aug, [facility] [address] [id number] [place] [address]- 6706 Aug, [facility] [place] [facility] [address] [id number] [place] [address]- 7869 Aug, [facility] [place] [facility] [address] [id number] [place] [address]- 9165 Aug, [facility] [place] [facility] [address] [facility] [id number] [place] [address]- 2609 Aug, [facility] [place] [facility] [address] [id number] [place] [address]- 8797 Aug, [facility] [place] [facility] [address] [id number] [place] [address]- 0902 Aug, [facility] [place] [facility] [address] [id number] [place] [address]- 7566 Aug, [facility] [place] [facility] [address] [facility] [id number] [place] [address]- 2379 Jul, [facility] [place] [facility] [address] [id number] [place] [address]- 3475 Jul, [facility] [place] [facility] [address] [facility] [id number] [place] [address]- 5068 Jul, [facility] [place] [facility] [address] [facility] [id number] [place] [address]- 8398 Jul, [facility] [place] [facility] [address] [id number] [place] [address]- 2242 Jul, [facility] [place] [facility] [address] [id number] [place] [address]- 8931 Jul, [facility] [place] [facility] [address] [id number] [place] [address]- 0606 Jul, [facility] [place] [facility] [address] [id number] [place] [address]- 3832 Jul, [facility] [place] [facility] [address] [facility] [id number] [place] [address]- 8700 Jul, [facility] [place] [facility] [address] [id number] [place] [address]- 9579 Jul, [facility] [place] [facility] [address] [id number] [place] [address]- 8816 Jun, [facility] [place] [facility] [address] [id number] [place] [address]- 6748 Jun, [facility] [place] [facility] [address] [id number] [place] [address]- 6012 Jun, [facility] [place] [facility] [address] [id number] [place] [address]- 5964 Jun, [facility] [place] [facility] [address] [id number] [place] [address]- 3862 Jun, [facility] [place] [facility] [address] [id number] [place] [address]- 6055 Jun, [facility] [place] [facility] [address] [id number] [place] [address]- 3380 Jun, [facility] [place] [facility] [address] [id number] [place] [address]- 9157 Jun, [facility] [place] [facility] [address] [id number] [place] [address]- 1436 Jun, [facility] [place] [facility] [address] [id number] [place] [address]- 4180 Jun, [facility] [place] [facility] [address] [id number] [place] [address]- 9076 29 May, 2013 [facility] [place] [facility] [address] [id number] [place] [address]- 9418 29 Sep, 2013 [facility] [place] [facility] [address] [id number] [place] [address]- 5174 26 May, 2013 [facility] [place] [facility] [address] [id number] [place] [address]- 1251 26 May, 2013 [facility] [place] [facility] [address] [id number] [place] [address]- 3850 17 Sep, 2013 [facility] [place] [facility] [address] [id number] [place] [address]- 7852 17 May, 2013 [facility] [place] [facility] [address] [id number] [place] [address]- 8264 15 May, 2013 [facility] [place] [facility] [address] [id number] [place] [address]- 5586 15 May, 2013 [facility] [place] [facility] [address] [id number] [place] [address]- 6525 15 May, 2013 [facility] [place] [facility] [address] [id number] [place] [address]- 6619 15 May, 2013 [facility] [place] [facility] [address] [id number] [place] [address]- 9456 10 May, 2013 [facility] [place] [facility] [address] [id number] [place] [address]- 7643 10 May, 2013 [facility] [place] [facility] [address] [id number] [place] [address]- 9871 09 May, 2013 [facility] [place] [facility] [address] [id number] [place] [address]- 7200 09 May, 2013 [facility] [place] [facility] [address] [id number] [place] [address]- 0815 04 May, 2014 [facility] [place] [facility] [address] [id number] [place] [address]- 4207 May, 2013 [facility] [place] [facility] [address] [id number] [place] [address]- 5717 Apr, [facility] [place] [facility] [address] [id number] [place] [address]- 2530 Apr, [facility] [place] [facility] [address] [id number] [place] [address]- 0419 Apr, [facility] [place] [facility] [address] [id number] [place] [address]- 7633 Apr, [facility] [place] [facility] [address] [id number] [place] [address]- 2881 Apr, [facility] [place] [facility] [address] [id number] [facility] [place] [address] Apr, [facility] [place] [facility] [address] [id number] [place] [address] Apr, [facility] [place] [facility] [address] [id number] [place] [address] Apr, [facility] [place] [facility] [address] [id number] [place] [address] Apr, [facility] [place] [facility] [address] [id number] [place] [address] Apr, [facility] [place] [facility] [address] [id number] [place] [address] Apr, [facility] [place] [facility] [address] [id number] [place] [address] Apr, [facility] [place] [facility] [address] [id number] [place] [address] Apr, [facility] [place] [facility] [address] [id number] [place] [address] Apr, [facility] [place] [facility] [address] [id number] [place] [address] Apr, [facility] [place] [facility] [address] [id number] [place] [address] Mar, [facility] [place] [facility] [address] [id number] [place] [address] Mar, [facility] [place] [facility] [address] [id number] [place] [address] Mar, [facility] [place] [facility] [address] [id number] [place] [address] Mar, [facility] [place] [facility] [address] [id number] [place] [address] Mar, [facility] [place] [facility] [address] [id number] [place] [address] Mar, 2013 [facility] [place] [facility] [address] [id number] [place] [address] Mar, 2013 [facility] [place] [facility] [address] [id number] [place] [address] Mar, 2013 [facility] [place] [facility] [address] [id number] [place] [address] Mar, 2013 [facility] [place] [facility] [address] [id number] [place] [address] Mar, 2013 [facility] [place] [facility] [address] [id number] [place] [address] Mar, 2013 [facility] [place] [facility] [address] [id number] [place] [address]- [address] Mar, 2013 [facility] [place] [facility] [address] [id number] [place] [address] Mar, 2013 [facility] [place] [facility] [address] [id number] [place] [address]- [address] Mar, 2013 [facility] [place] [facility] [address] [id number] [place] [address] Mar, 2013 [facility] [place] [facility] [address] [id number] [place] [address] Mar, 2013 [facility] [place] [facility] [address] [id number] [place] [address]- [address] Mar, [facility] [place] [facility] [address] [id number] [place] [address] Mar, [facility] [place] [facility] [address] [id number] [place] [address] Feb, [facility] [place] [facility] [address] [id number] [place] [address] Feb, [facility] [place] [facility] [address] [id number] [place] [address] 94[address] Feb, [facility] [place] [facility] [address] [id number] [place] [address] Feb, [facility] [place] [facility] [address] [id number] [place] [address] Feb, [facility] [place] [facility] [address] [id number] [place] [address] Feb, [facility] [place] [facility] [address] [id number] [place] [address] Feb, [facility] [place] [facility] [address] [id number] [place] [address]- [address] Feb, [facility] [place] [facility] [address] [id number] [place] [address] Feb, [facility] [place] [facility] [address] [id number] [place] [address]- [address] Feb, [facility] [place] [facility] [address] [id number] [place] [address] 135[address] Feb, [facility] [place] [facility] [address] [id number] [place] [address] 4770 Feb, [facility] [place] [facility] [address] [id number] [place] [address] Feb, [facility] [place] [facility] [address] [id number] [place] [address]- 47[address] Feb, [facility] [place] [facility] [address] [id number] [place] [address] January, [facility] [place] [facility] [address] [id number] [place] [address] January, [facility] [place] [facility] [address] [id number] [place] [address] January, [facility] [place] [facility] [address] [id number] [place] [address] 395[address] January, [facility] [place] [facility] [address] [id number] [place] [address]- 25[address] January, [facility] [address] [id number] [place] [address] January, [facility] [address] [id number] [place] [address] January, [facility] [address] [id number] [place] [address] January, [facility] [address] [id number] [place] [address]- [address] January, [facility] [address] [id number] [place] [address] January, [facility] [address] [id number] [place] [address] January, [facility] [address] [id number] [place] [address] January, [facility] [address] [id number] [place] [address] January, [facility] [address] [id number] [place] [address] 35[address] January, [facility] [address] [id number] [place] [address] 75[address] Dec, [facility] [place] [facility] [address] [id number] [place] [address] Dec, [facility] [address] [id number] [place] [address] 4554 Dec, [facility] [place] [facility] [address] [id number] [place] [address] 2170 Dec, [facility] [place] [facility] [address] [id number] [place] [address] Dec, [facility] [place] [facility] [address] [id number] [place] [address] 87[address] Dec, [facility] [place] [facility] [address] [id number] [place] [address] 5521 Dec, [facility] [place] [facility] [address] [id number] [place] [address]- 4966 Dec, [facility] [place] [facility] [address] [id number] [place] [address]- 7[address] Dec, [facility] [place] [facility] [address] [id number] [place] [address]- 4059 Dec, [facility] [place] [facility] [address] [id number] [place] [address]- 7131 Nov, [facility] [place] [facility] [address] [id number] [place] [address]- 9588 Nov, [facility] [place] [facility] [address] [id number] [place] [address]- 4358 Nov, [facility] [place] [facility] [address] [id number] [place] [address]- 1569 Nov, [facility] [place] [facility] [address] [id number] [place] [address]- 0179 Nov, [facility] [place] [facility] [address] [id number] [place] [address]- 4721 Nov, [facility] [place] [facility] [address] [id number] [place] [address]- 5581 Nov, [facility] [place] [facility] [id number] [place] [address] Nov, [facility] [place] [facility] [address] [id number] [place] [address]- 9932 Nov, [facility] [place] [facility] [address] [id number] [place] [address]- 3606 Nov, [facility] [place] [facility] [address] [id number] [place] [address]- 5848 Oct, [facility] [place] [facility] [id number] [place] [address] Oct, [facility] [place] [facility] [address] [id number] [place] [address]- 7036 Oct, [facility] [place] [facility] [address] [id number] [place] [address]- 9696 Oct, [facility] [place] [facility] [address] [facility] [id number] [place] [address]- 3496 Oct, [facility] [place] [facility] [address] [id number] [place] [address]- 7606 Oct, [facility] [place] [facility] [address] [id number] [place] [address]- 5756 Oct, [facility] [place] [facility] [address] [facility] [id number] [place] [address]- 8394 Oct, [facility] [place] [facility] [address] [facility] [id number] [place] [address]- 0261 Oct, [facility] [place] [facility] [address] [facility] [id number] [place] [address]- 7654 Oct, [facility] [place] [facility] [address] [facility] [id number] [place] [address]- 2042 Oct, [facility] [place] [facility] [address] [facility] [id number] [place] [address]- 5126 Oct, [facility] [place] [facility] [address] [facility] [id number] [place] [address]- 2100 Oct, [facility] [place] [facility] [address] [facility] [id number] [place] [address]- 7073 Oct, [facility] [place] [facility] [address] [facility] [id number] [place] [address]- 4958 Sep, [facility] [place] [facility] [address] [facility] [id number] [place] [address]- 3486 Sep, [facility] [place] [facility] [address] [facility] [id number] [place] [address]- 5234 15 Sep, 2013 [facility] [place] [facility] [address] [id number] [place] [address]- 5075 15 Sep, 2013 [facility] [place] [facility] [address] [id number] [place] [address]- 0338 14 Sep, 2013 [facility] [place] [facility] [address] [id number] [place] [address]- 0133 Sep, [facility] [place] [facility] [address] [id number] [place] [address]- 6121 Sep, [facility] [place] [facility] [address] [id number] [place] [address]- 2318 Sep, [facility] [place] [facility] [address] [id number] [place] [address]- 9400 Sep, [facility] [place] [facility] [address] [id number] [place] [address]- 5831 Sep, [facility] [place] [facility] [id number] [place] [address]- [address]38 10 Aug, 2013 [facility] [place] [facility] [address] [id number] [place] [address]- 1681 Aug, [facility] [place] [facility] [address] [id number] [place] [address]- 1762 Jul, [facility] [place] [facility] [id number] [place] [address]- 3295 Jul, [facility] [place] [facility] [id number] [place] [address]- 6522 Jul, [facility] [place] [facility] [address] [id number] [place] [address]- 0867 Jul, [facility] [place] [facility] [id number] [place] [address]- 9672 Jul, [facility] [place] [facility] [id number] [place] [address]- 6839 Jul, [facility] [place] [facility] [address] [id number] [place] [address]- 8821 Jul, [facility] [place] [facility] [address] [id number] [place] [address]- 1427 Jul, [facility] [place] [facility] [address] [id number] [place] [address]- 2099 Jul, [facility] [place] [facility] [address] [id number] [place] [address]- 2772 08 Jul, 2013 [facility] [place] [facility] [address] [id number] [place] [address]- 2926 Jul, [facility] [place] [facility] [address] [id number] [place] [address]- 5920 Jul, [facility] [place] [facility] [address] [id number] [place] [address]- 6262 Jul, [facility] [place] [facility] [address] [id number] [place] [address]- 6859 Jul, [facility] [place] [facility] [address] [id number] [place] [address]- 7468 Jul, [facility] [place] [facility] [address] [id number] [place] [address]- 3588 Jul, [facility] [place] [facility] [address] [facility] [id number] [place] [address]- 1019 Jul, [facility] [place] [facility] [address] [id number] [place] [address]- 0709 Jul, [facility] [place] [facility] [address] [id number] [place] [address]- 9791 Jul, [facility] [place] [facility] [address] [id number] [place] [address]- 0240 Jun, [facility] [place] [facility] [address] [id number] [place] [address]- 4577 Jun, [facility] [place] [facility] [address] [id number] [place] [address]- 9264 Jun, [facility] [place] [facility] [address] [id number] [place] [address]- 8742 16 Jun, 2012 [facility] [place] [facility] [address] [id number] [place] [address]- 7633 16 Jun, 2012 [facility] [place] [facility] [address] [id number] [place] [address] 16 Jun, 2012 [facility] [place] [facility] [address] [id number] [place] [address]- 1789 10 Jun, 2012 [facility] [address] [id number] [place] [address]- 8686 10 Jun, 2012 [facility] [place] [facility] [address] [id number] [place] [address]- 6939 Jun, 2012 [facility] [address] [id number] [place] [address]- 5896 Jun, 2012 [facility] [address] [id number] [place] [address]- 4266 Jun, [facility] [place] [facility] [address] [id number] [place] [address]- 7128 26 May, 2012 [facility] [place] [facility] [address] [id number] [place] [address]- 9334 25 May, 2012 [facility] [place] [facility] [address] [id number] [place] [address]- 1368 19 Sep, 2012 [facility] [place] [facility] [id number] [place] [address]- 0777 17 Sep, 2012 [facility] [place] [facility] [address] [id number] [place] [address]- 5691 11 Sep, 2012 [facility] [place] [facility] [address] [id number] [place] [address]- 2381 10 May, 2012 [facility] [place] [facility] [id number] [place] [address]- 2021 09 May, 2012 [facility] [place] [facility] [id number] [place] [address]- 5660 May, [facility] [place] [facility] [address] [id number] [place] [address]- 6976 Apr, [facility] [place] [facility] [address] [id number] [place] [address]- 5173 Apr, [facility] [place] [facility] [address] [id number] [place] [address]- 3498 Apr, [facility] [place] [facility] [address] [id number] [place] [address]- 3291 Apr, [facility] [place] [facility] [address] [id number] [place] [address]- 6744 Apr, [facility] [place] [facility] [address] [id number] [place] [address]- 3736 Mar, [facility] [place] [facility] [address] [id number] [place] [address]- 9994 Mar, [facility] [place] [facility] [address] [id number] [place] [address]- 9461 Mar, [facility] [place] [facility] [address] [id number] [place] [address]- 6530 Mar, [facility] [place] [facility] [address] [id number] [place] [address]- 4275 Mar, [facility] [place] [facility] [address] [id number] [place] [address]- 8369 Mar, [facility] [place] [facility] [address] [id number] [place] [address]- 0250 Mar, [facility] [place] [facility] [address] [id number] [place] [address]- 4207 Mar, [facility] [place] [facility] [address] [id number] [place] [address]- 5216 Feb, [facility] [place] [facility] [address] [id number] [place] [address]- 7806 Feb, [facility] [place] [facility] [address] [id number] [place] [address]- 6095 January, [facility] [address] [id number] [place] [address]- 1093 January, [facility] [address] [id number] [place] [address]- 9958 Dec, [facility] [address] [id number] [place] [address]- 7807 Dec, [facility] [address] [id number] [place] [address]- 2716 Nov, [facility] [address] [id number] [place] [address]- 7786 Nov, [facility] [address] [facility] [id number] [place] [address]- 0251 Nov, [facility] [address] [id number] [place] [address]- 4446 Nov, [facility] [address] [id number] [place] [address]- 0761 Oct, [facility] [address] [id number] [place] [address]- 4602 Oct, [facility] [address] [id number] [place] [address]- 7825 Oct, [facility] [address] [facility] [id number] [place] [address]- 0690 Oct, [facility] [address] [facility] [id number] [place] [address]- 1851 16 Oct, 2012 [facility] [address] [id number] [place] [address]- 8451 14 Oct, 2012 [facility] [address] [facility] [id number] [place] [address]- 8684 08 Oct, 2012 [facility] [id number] [place] [address]- 2546 07 Oct, 2012 [facility] [address] [id number] [place] [address]- 3357 Oct, [facility] [address] [id number] [place] [address]- 3887 Sep, [facility] [address] [id number] [place] [address]- 4364 Sep, [facility] [address] [id number] [place] [address]- 8008 Sep, [facility] [address] [id number] [place] [address]- 8311 Sep, [facility] [address] [id number] [place] [address]- 0596 Sep, [facility] [address] [id number] [place] [address]- 1834 Sep, [facility] [address] [id number] [place] [address]- 0796 Sep, [facility] [address] [id number] [place] [address]- 2174 Sep, [facility] [address] [id number] [place] [address]- 3218 Aug, [facility] [address] [id number] [place] [address]- 9480 Aug, [facility] [address] [id number] [place] [address]- 2776 Aug, [facility] [address] [id number] [place] Aug, [facility] [place] [facility] [address] [id number] [place] [address]12 Aug, [facility] [address] [id number] [place] [address]- 1474 Aug, [facility] [place] [facility] [address] [id number] [place] [address]- 0537 Aug, [facility] [place] [facility] [address] [id number] [place] [address]- 7555 Aug, [facility] [place] [facility] [address] [id number] [place] [address]- 3986 Jul, [facility] [place] [facility] [address] [id number] [place] [address]- 3890 Jul, [facility] [place] [facility] [address] [id number] [place] [address]- 4926 Jul, [facility] [place] [facility] [address] [id number] [place] [address]- 3424 Jul, [facility] [place] [facility] [address] [id number] [place] [address]- 9161 Jul, [facility] [place] [facility] [address] [id number] [place] [address]- 2666 Jul, [facility] [place] [facility] [address] [id number] [place] [address]- 4391 Jun, [facility] [place] [facility] [address] [id number] [place] [address]- 5514 Jun, [facility] [place] [facility] [address] [facility] [id number] [place] [address]- 2197 Jun, [facility] [place] [facility] [address] [id number] [place] [address]- 3674 Jun, [facility] [place] [facility] [address] [id number] [place] [address]- 9244 Jun, [facility] [place] [facility] [address] [id number] [place] [address]- 8816 Jun, [facility] [place] [facility] [address] [id number] [place] [address]- 3697 Jun, [facility] [place] [facility] [address] [id number] [place] [address]- 3648 Jun, [facility] [place] [facility] [address] [id number] [place] [address]- 2448 10 Jun, 2012 [facility] [place] [facility] [address] [id number] [place] [address]- 7321 26 May, 2012 [facility] [place] [facility] [address] [id number] [place] [address]- 3768 24 May, 2012 [facility] [place] [facility] [address] [id number] [place] [address]- 6618 May, [facility] [place] [facility] [address] [id number] [place] [address]- 2851 Apr, [facility] [place] [facility] [address] [id number] [place] [address]- 2204 Apr, [facility] [place] [facility] [address] [id number] [place] [address]- 7662 Apr, [facility] [place] [facility] [address] [id number] [place] [address]- 7700 Apr, [facility] [place] [facility] [address] [id number] [place] [address]- 9363 Apr, [facility] [place] [facility] [address] [id number] [place] [address]- 0200 Apr, [facility] [place] [facility] [address] [id number] [place] [address]- 4451 Mar, [facility] [place] [facility] [address] [id number] [place] [address]- 8719 Mar, [facility] [place] [facility] [address] [id number] [place] [address]- 2176 Mar, [facility] [place] [facility] [address] [id number] [place] [address]- 3833 Mar, [facility] [place] [facility] [address] [id number] [place] [address]- 2959 Feb, [facility] [place] [facility] [address] [id number] [place] [address]- 0751 Feb, [facility] [place] [facility] [address] [id number] [place] [address]- 1605 Feb, [facility] [place] [facility] [address] [id number] [place] [address]- 4543 Feb, [facility] [place] [facility] [address] [id number] [place] [address]- 0223 Feb, [facility] [place] [facility] [address] [id number] [place] [address]- 4965 January, [facility] [place] [facility] [address] [id number] [place] [address]- 0841 January, [facility] [place] [facility] [address] [id number] [place] [address]- 0282 January, [facility] [address] [id number] [place] [address]- 0505 January, [facility] [place] [facility] [address] [id number] [place] [address]- 3290 January, [facility] [place] [facility] [address] [id number] [place] [address]- 1721 January, [facility] [place] [facility] [address] [id number] [place] [address]- 6322 Dec, [facility] [place] [facility] [address] [id number] [place] [address]- 1117 Dec, [facility] [place] [facility] [address] [id number] [place] [address]- 8857 Dec, [facility] [place] [facility] [address] [id number] [place] [address]- 7143 Dec, [facility] [place] [facility] [address] [id number] [place] [address]- 0646 Dec, [facility] [place] [facility] [address] [id number] [place] [address]- 4329 Nov, [facility] [place] [facility] [address] [id number] [place] [address]- 7619 14 Nov, 2011 [facility] [place] [facility] [address] [id number] [place] [address]- 7706 Nov, [facility] [place] [facility] [address] [id number] [place] [address]- 4906 Nov, [facility] [place] [facility] [address] [id number] [place] [address]- 6143 29 Oct, 2011 [facility] [place] [facility] [address] [id number] [place] [address]- 4593 28 Oct, 2011 [facility] [place] [facility] [address] [id number] [place] [address] 24 Oct, 2011 [facility] [place] [facility] [address] [id number] [place] [address] Oct, [facility] [place] [facility] [address] [id number] [place] [address] Oct, [facility] [place] [facility] [address] [id number] [place] [address] Sep, [facility] [place] [facility] [address] [id number] [place] [address] Sep, [facility] [place] [facility] [address] [id number] [place] [address] Sep, [facility] [place] [facility] [address] [id number] [place] [address] Sep, [facility] [place] [facility] [address] [id number] [place] [address] Sep, [facility] [place] [facility] [address] [id number] [place] [address] Sep, [facility] [place] [facility] [address] [id number] [place] [address] Aug, [facility] [place] [facility] [address] [id number] [place] [address] Aug, [facility] [place] [facility] [address] [id number] [place] [address] Aug, [facility] [place] [facility] [address] [id number] [place] [address] Jul, [facility] [place] [facility] [address] [id number] [place] [address] Jul, [facility] [place] [facility] [address] [id number] [place] [address] Jul, [facility] [place] [facility] [address] [id number] [place] [address] Jul, [facility] [place] [facility] [address] [id number] [place] [address] Jun, [facility] [place] [facility] [address] [facility] [id number] [place] [address] Jun, [facility] [place] [facility] [address] [facility] [id number] [place] [address] Jun, [facility] [place] [facility] [address] [facility] [id number] [place] [address] Jun, [facility] [place] [facility] [address] [facility] [id number] [place] [address] Jun, [facility] [place] [facility] [address] [facility] [id number] [place] [address] Jun, [facility] [place] [facility] [address] [id number] [place] [address] Mar, [facility] [place] [facility] [address] [id number] [place] [address] Dec, [facility] [place] [facility] [address] [facility] [id number] [place] [address] Dec, [facility] [place] [facility] [address] [facility] [id number] [place] [address] Nov, [facility] [place] [facility] [address] [id number] [place] [address] 16 Nov, 2010 [facility] [address] [id number] [place] [address] 10 Sep, 2010 [facility] [place] [facility] [address] [id number] [place] [address] 2546 31 Aug, 2010 [facility] [address] [id number] [place] [address] 2546 29 Aug, 2010 [facility] [place] [facility] [address] [id number] [place] [address] 2546 29 Aug, 2010 [facility] [address] [id number] [place] [address] 29 Aug, 2010 [facility] [facility] [address] [id number] [place] [address] 27 Aug, 2010 [facility] [address] [id number] [place] [address] 14 Aug, 2010 [facility] [address] [id number] [place] [address] 2549 08 Aug, 2010 [facility] [address] [id number] [place] [address] 2546 08 Aug, 2010 [facility] [address] [id number] [place] [address] 07 Aug, 2010 [facility] [address] [id number] [place] [address] 2546 Aug, [facility] [facility] [address] [id number] [place] [address] 2546 Aug, [facility] [facility] [address] [id number] [place] [address] 2546 Aug, [facility] [address] [id number] [place] [address] 2546 Jul, [facility] [place] [facility] [address] [id number] [place] [address] Jul, [facility] [place] [facility] [address] [id number] [place] [address]- [address]87 30 Jul, 2010 [facility] [place] [facility] [address] [id number] [place] [address]85 Jul, [facility] [place] [facility] [address] [id number] [place] [address]- 360[address] 08 Jul, 2010 [facility] [place] [facility] [address] [id number] [place] [address] Jul, [facility] [place] [facility] [address] [id number] [place] [address]- [address]66 24 Jun, 2010 [facility] [place] [facility] [address] [id number] [place] [address] Jun, [facility] [place] [facility] [address] [id number] [place] [address]- [address] Jun, [facility] [place] [facility] [id number] [place] [address] Jun, [facility] [place] [facility] [address] [id number] [place] [address] 16 Apr, 2010 [facility] [place] [facility] [address] [id number] [place] [address] Mar, [facility] [place] [facility] [id number] [place] [address] Feb, [facility] [place] [facility] [address] [id number] [place] [address] January, [facility] [place] [facility] [address] [id number] [place] [address]- 9435 15 Dec, 2009 [facility] [place] [facility] [id number] [place] [address] 11 Nov, 2009 [facility] [place] [facility] [address] [id number] [place] [address]- [address] 31 Aug, 2009 [facility] [place] [facility] [address] [facility] [id number] [place] [address] Aug, [facility] [address] [facility] [id number] [place] [address]- [address] Aug, [facility] [address] [facility] [id number] [place] [address] Jul, [facility] [address] [facility] [id number] [address] 2546 Jul, [facility] [address] [facility] [id number] [place] [address] 2546 Jul, [facility] [address] [facility] [id number] [place] [address]- [address] Jun, [facility] [address] [facility] [id number] [place] [address] Jun, [facility] [address] [facility] [id number] [address] Jun, [facility] [address] [facility] [id number] [place] [address] Jun, [facility] [address] [facility] [id number] [address] Jun, [facility] [address] [facility] [id number] [place] [address] Jun, [facility] [address] [facility] [id number] [address] Apr, [facility] [address] [facility] [id number] [place] [address] Apr, [facility] [address] [facility] [id number] [address] Feb, [facility] [address] [facility] [id number] [address] January, [facility] [address] [facility] [id number] [place] [address] Dec, IMMUNIZATIONS No Known Immunizations SOCIAL HISTORY Never Assessed REASON FOR VISIT [id number], Depression. PLAN OF CARE Activity Details Follow Up 2 Weeks Reason:Depression. VITAL SIGNS MEDICATIONS Unknown Medications RESULTS No Results PROCEDURES Procedure Date Ordered Result Body Site [facility] VISIT MENTAL HEALTH ESTAB PT February 26, 2018 Psychotherapy, patient &/family, 45 minutes, established patient February 26, 2018 INSTRUCTIONS MEDICATIONS ADMINISTERED No Known [...] 2009 Surgical History colonoscopy 2009 ([facility]), 2013 ([facility]) Surgical History heart cath: CAD w/ PTCA [...] History inability to urinate 09/16/15 Hospitalization History [facility] early Hospitalization History hyperkalemia 10/2017 Hospitalization History fluid in lung
--- OUTSIDE RECORDS SUMMARY | 2018-08-08 14:08 | XMS REPORT ---
Author Author NOEMI WASHBURN Organization [facility] Address [address] [place] [address] Care Team Providers Care Field Tech Name Role Phone NOEMI WASHBURN Unavailable PROBLEMS Type Condition ICD9-CM Code UFN20-BK Code Onset Dates Condition Status SNOMED Code Problem Chronic lymphocytic leukemia C91.10 Active 17989965 Problem Lymphocytosis D72.820 Active 83770542 Problem Eye exam abnormal R93.8 Active 313972557 Problem Eustachian tube dysfunction, unspecified laterality H69.80 Active 51330143 Problem Essential hypertension I10 Active 53519415 Problem Dysuria R30.0 Active 24527666 Problem Diabetic polyneuropathy associated with type 2 diabetes mellitus E11.42 Active 59024288 Problem Cough R05 Active 77701258 Problem Polyneuropathy associated with underlying disease G63 Active 536617031 Problem Retinal edema H35.81 Active 9494775 Problem Bilateral primary osteoarthritis of knee M17.0 Active 662912684 Problem Primary osteoarthritis of right knee M17.11 Active 583720368840072 Problem Pure hypercholesterolemia E78.00 Active 998738267 Problem DM neuro manif type II E11.49 Active 40127815 Problem Benign prostatic hyperplasia with lower urinary tract symptoms, unspecified morphology N40.1 Active 173399846 Problem Hypokalemia E87.6 Active 27119167 Problem 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 Active 090104065 Problem Anemia of chronic illness D63.8 Active 051263076 Problem Bipolar disorder, in partial remission, most recent episode depressed F31.75 Active 88722145 Problem Falling R29.6 Active 286185704 Problem Leukocytosis D72.829 Active 535735704 Problem Reactive airway disease J45.909 Active 206585011041 Problem Diabetes E11.9 Active 31502838 Problem Chronic pain G89.29 Active 68395105 Problem Anxiety F41.9 Active 72596252 Problem Morbid obesity E66.01 Active 998574378 Problem Bipolar I disorder, most recent episode (or current) mixed, moderate F31.62 Active 16154713 Problem Insomnia, unspecified type G47.00 Active 412405315 ALLERGIES No Information ENCOUNTERS Encounter Location Date Diagnosis [facility] [id number] [place] [address] 38654- 0259 Jun, [facility] [address] [place] [address] 62057- 0330 Apr, [facility] [address] 57907- 7369 Apr, Chronic pain G89.29 [facility] [address] 09390- 0949 Apr, Primary osteoarthritis of right knee M17.11 [facility] [address] 68985- 7090 Mar, [facility] [address] 27633- 7021 Mar, BMI 50.0-59.9, adult Z68.43 and Bipolar disorder, in partial remission, most recent episode depressed F31.75 [facility] [address] 25204- 7113 Mar, Diabetes E11.9 ; Pure hypercholesterolemia E78.00 ; Essential hypertension I10 ; Nausea with vomiting, unspecified R11.2 and Headache, unspecified headache type R51 [facility] [address] [place] [address] 50253- 5406 Mar, Bipolar I disorder, most recent episode (or current) mixed, moderate F31.62 [facility] [address] 89292- 8465 Mar, Bipolar I disorder, most recent episode (or current) mixed, moderate F31.62 [facility] [address] [place] [address] 02351- 0575 Mar, Chronic pain G89.29 [facility] [address] [place] [address] 1121 Mar, Bipolar I disorder, most recent episode (or current) mixed, moderate F31.62 [facility] [address] [place] [address] 71320- 7787 Feb, Bipolar I disorder, most recent episode (or current) mixed, moderate F31.62 [facility] [address] [place] [address] 54078- 0735 Feb, Chronic pain G89.29 [facility] [address] [place] [address] 74079- 9067 Feb, Decubitus ulcer of right foot, stage 3 L89.893 and BMI 50.0- 59.9, adult Z68.43 [facility] [address] [place] [address] 82171- 8083 Feb, Bipolar I disorder, most recent episode (or current) mixed, moderate F31.62 [facility] [address] [address] 7374 Feb, [facility] [address] [place] [address] 47984- 4979 January, [facility] [address] [place] [address] 31455- 9272 January, Chronic pain G89.29 [facility] [address] [address] 3832 January, Bipolar I disorder, most recent episode (or current) mixed, moderate F31.62 [facility] [address] [address]- 6465 January, Bipolar I disorder, most recent episode (or current) mixed, moderate F31.62 [facility] [address] [address]- 0105 Dec, Bipolar I disorder, most recent episode (or current) mixed, moderate F31.62 and BMI 50.0-59.9, adult Z68.43 [facility] [address] [place] [address] 53263- 7488 Dec, Bipolar I disorder, most recent episode (or current) mixed, moderate F31.62 [facility] [address] [place] [address] 27956- 4614 Dec, Chronic pain G89.29 [facility] [address] 088606- 4007 Dec, DM neuro manif type II E11.49 ; Right flank pain R10.9 ; halfway 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 Z79.891 ; Encounter for medication monitoring Z51.81 and BMI 50.0-59.9, adult Z68.43 [facility] [address] [place] [address] 04934- 6444 Dec, Bipolar I disorder, most recent episode (or current) mixed, moderate F31.62 [facility] [address] [place] [address] 43828- 3975 Nov, Bipolar I disorder, most recent episode (or current) mixed, moderate F31.62 [facility] [address] [place] [address] 28749- 3650 Nov, Chronic pain G89.29 [facility] [address] [place] [address] 66556- 0166 Nov, Bipolar I disorder, most recent episode (or current) mixed, moderate F31.62 [facility] [address] [place] [address] 46234- 4200 Nov, Hypokalemia E87.6 [facility] [address] 04173- 2158 Nov, Bipolar I disorder, most recent episode (or current) mixed, moderate F31.62 [facility] [address] [place] [address] 23229- 8946 Oct, Chronic pain G89.29 [facility] [address] [place] [address] 25810- 1777 Oct, BMI 50.0-59.9, adult Z68.43 and Bipolar I disorder, most recent episode (or current) mixed, moderate F31.62 [facility] [address] [place] [address] 88177- 6266 Oct, Bipolar I disorder, most recent episode (or current) mixed, moderate F31.62 [facility] [address] 87466- 2895 Oct, [facility] [address] 12384- 3166 Oct, Hypokalemia E87.6 [facility] [address] [place] [address] 34640- 3622 Oct, DM neuro manif type II E11.49 [facility] [address] 59194- 6393 Oct, Bipolar I disorder, most recent episode (or current) mixed, moderate F31.62 [facility] [address] [place] [address] 85603- 3314 Oct, Bipolar I disorder, most recent episode (or current) mixed, moderate F31.62 [facility] [address] [place] [address] 10078- 0076 14 Oct, 2017 Hyperkalemia E87.5 ; Falling R29.6 ; BMI 50.0-59.9, adult Z68.43 and Acute left ankle pain M25.572 [facility] [address] [place] [address] 11510- 2558 Oct, DM neuro manif type II E11.49 [facility] [address] [place] [address] 19159- 1999 Oct, [facility] [address] 21936- 5032 Sep, Chronic pain G89.29 [facility] [address] [place] [address] 44523- 6295 Sep, [facility] [address] [place] [address] 23481- 3697 Sep, Bilateral primary osteoarthritis of knee M17.[address] 61947- 2854 Sep, Generalized edema R60.1 [facility] [address] [place] [address] 95988- 3118 Sep, Bipolar I disorder, most recent episode (or current) mixed, moderate F31.62 [facility] [address] [place] [address] 58856- 7654 Sep, Hypoxia R09.02 ; Other hypervolemia E87.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 ; Anemia of chronic illness D63.8 and BMI 50.0- 59.9, adult Z68.43 [facility] [address] [place] [address] 37079- 2270 Sep, [facility] [address] [place] [address] 73705- 7535 Sep, Bipolar I disorder, most recent episode (or current) mixed, moderate F31.62 [facility] [address] [place] [address] 70630- 8020 Aug, Chronic pain G89.29 [facility] [address] [place] [address] 35871- 1370 Aug, Generalized edema R60.1 [facility] [address] [place] [address] 00801- 9643 Aug, [facility] [address] 24655- 5288 Aug, [facility] [address] [address]- 0064 14 Aug, 2017 Bipolar I disorder, most recent episode (or current) mixed, moderate F31.62 [facility] [address] [address]- 0286 Aug, Bipolar I disorder, most recent episode (or current) mixed, moderate F31.62 [facility] [address] [place] [address] 18305- 7739 04 Aug, 2017 Chronic pain G89.29 [facility] [address] [place] [address] 51588- 8380 30 Jul, 2017 Bipolar I disorder, most recent episode (or current) mixed, moderate F31.62 [facility] [address] [place] [address] 36822- 1486 Jul, Bipolar I disorder, most recent episode (or current) mixed, moderate F31.62 and BMI 60.0-69.9, adult Z68.44 [facility] [address] [place] [address] 44760- 0891 16 Jul, 2017 Bipolar I disorder, most recent episode (or current) mixed, moderate F31.62 [facility] [address] [place] [address] 94830- 7764 06 Jul, 2017 Chronic pain G89.29 [facility] [address] [place] [address] 36809- 6744 Jul, Bipolar I disorder, most recent episode (or current) mixed, moderate F31.62 [facility] [address] [place] [address] 41109- 3641 Jun, Polyneuropathy associated with underlying disease G63 and Diabetes E11.9 [facility] [address] [place] [address] 36992- 9617 16 Jun, 2017 Bipolar I disorder, most recent episode (or current) mixed, moderate F31.62 [facility] [address] [address]- 9450 09 Jun, 2017 Chronic pain G89.29 [facility] [address] [place] [address] 196981- 1214 27 May, 2017 Bipolar I disorder, most recent episode (or current) mixed, moderate F31.62 [facility] [address] [place] [address] 51585- 5281 21 May, 2017 Bipolar I disorder, most recent episode (or current) mixed, moderate F31.62 [facility] [address] [place] [address] 12275- 9561 20 May, 2017 Diabetic polyneuropathy associated with type 2 diabetes mellitus E11.42 [facility] [address] [place] [address] 33257- 7170 18 May, 2017 Bipolar I disorder, most recent episode (or current) mixed, moderate F31.62 [facility] [address] [place] [address] 37382- 0499 13 May, 2017 Bipolar I disorder, most recent episode (or current) mixed, moderate F31.62 [facility] [address] [place] [address] 35069- 8642 12 May, 2017 Chronic pain G89.29 [facility] [address] [place] [address] 50750- 1227 Apr, Bipolar I disorder, most recent episode (or current) mixed, moderate F31.62 [facility] [address] [place] [address] 06903- 6568 Apr, [facility] [address] [place] [address] 47977- 7482 Apr, Chronic pain G89.29 and DM neuro manif type II E11.49 [facility] [address] [place] [address] 48357- 9018 Apr, [facility] [address] [place] [address] 16430- 9767 Apr, Bipolar I disorder, most recent episode (or current) mixed, moderate F31.62 [facility] [address] [place] [address] 43572- 1866 Apr, Chronic pain G89.29 [facility] [address] [place] [address] 33385- 9906 Apr, Iliotibial band syndrome, left M76.32 [facility] [address] [place] [address] 656848- 3776 Apr, Bipolar I disorder, most recent episode (or current) mixed, moderate F31.62 [facility] [address] [place] [address] 92653- 6352 Mar, Bipolar I disorder, most recent episode (or current) mixed, moderate F31.62 [facility] [address] [place] [address] 72779- 3485 Mar, Bipolar I disorder, most recent episode (or current) mixed, moderate F31.62 [facility] [address] [place] [address] 49159- 1801 Mar, [facility] [address] [place] [address] 06562- 8779 Mar, Bipolar I disorder, most recent episode (or current) mixed, moderate F31.62 [facility] [address] [place] [address] 11143- 6886 Mar, Chronic pain G89.29 [facility] [address] [place] [address] 81185- 9189 Mar, Bipolar I disorder, most recent episode (or current) mixed, moderate F31.62 [facility] [address] [place] [address] 55163- 7776 Mar, Bipolar I disorder, most recent episode (or current) mixed, moderate F31.62 [facility] [address] [place] [address] 99207- 1892 Mar, Acute pain of left knee M25.562 ; Left hip pain M25.552 ; Generalized edema R60.1 and Tongue swelling R22.0 [facility] [address] [place] [address] 27087- 5252 Mar, [facility] [address] [place] [address] 84171- 0691 Feb, Chronic pain G89.29 [facility] [address] [place] [address] 39234- 2378 Feb, Diabetes E11.9 [facility] [address] 94973- 9385 January, Chronic pain G89.29 [facility] [address] [place] [address] 77765- 7826 January, [facility] [address] [place] [address] 67286- 6600 January, Bipolar I disorder, most recent episode (or current) mixed, moderate F31.62 [facility] [address] [place] [address] 11336- 2464 Dec, Bipolar I disorder, most recent episode (or current) mixed, moderate F31.62 [facility] [address] [place] [address] 84351- 9438 Dec, Chronic pain G89.29 [facility] [address] [place] [address] 11253- 2759 Dec, Bipolar I disorder, most recent episode (or current) mixed, moderate F31.62 [facility] [address] [place] [address] 07798- 1706 Dec, Diabetes E11.9 ; Essential hypertension I10 ; Chronic pain G89.29 and Morbid obesity E66.01 [facility] [address] [place] [address] 44803- 1598 Dec, [facility] [address] [place] [address]- 4196 Dec, Bipolar I disorder, most recent episode (or current) mixed, moderate F31.62 [facility] [address] [address] 2546 Dec, Bipolar I disorder, most recent episode (or current) mixed, moderate F31.62 [facility] [address] [address]- 7666 Nov, Chronic pain G89.29 [facility] [address] [address] 2546 Nov, Bipolar I disorder, most recent episode (or current) mixed, moderate F31.62 [facility] [address] [address]- 8636 Nov, [facility] [address] [address]- 2106 Nov, Bipolar I disorder, most recent episode (or current) mixed, moderate F31.62 [facility] [address] [address]- 5276 Nov, Bipolar I disorder, most recent episode (or current) mixed, moderate F31.62 [facility] [address] [address]- 0236 Nov, [facility] [address] [address]- 0456 Nov, [facility] [address] [address] 2546 Nov, [facility] [address] [address]- 0296 Oct, Chronic pain G89.29 [facility] [address] [address]- 1926 Oct, Bipolar I disorder, most recent episode (or current) mixed, moderate F31.62 [facility] [address] [place] [address] 79381- 8253 Oct, [facility] [address] [place] [address] 41933- 1313 Oct, Chronic pain G89.29 ; Diabetes E11.9 ; Anxiety F41.9 and 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 [facility] [address] [place] [address] 58709- 5031 Oct, [facility] [address] [place] [address] 12657- 5480 Oct, Diabetes E11.9 [facility] [address] [place] [address] 98575- 9985 Oct, Bipolar I disorder, most recent episode (or current) mixed, moderate F31.62 [facility] [address] [place] [address] 53080- 3115 Sep, Chronic pain G89.29 [facility] [address] [place] [address] 57151- 3478 Sep, Chronic pain G89.29 [facility] [address] [place] [address] 25516- 6824 Aug, Chronic pain G89.29 [facility] [address] [place] [address] 14879- 2284 Jul, [facility] [address] [place] [address] 27279- 9840 Jul, Diabetes E11.9 [facility] [address] [place] [address] 90508- 1338 Jul, Chronic pain G89.29 [facility] [address] [place] [address] 21905- 9025 Jul, Bipolar I disorder, most recent episode (or current) mixed, moderate F31.62 [facility] [address] [place] [address] 32476- 5668 Jun, Bipolar I disorder, most recent episode (or current) mixed, moderate F31.62 [facility] [address] [place] [address] 97423- 3095 Jun, [facility] [address] [place] [address] 35936- 6025 Jun, Bipolar I disorder, most recent episode (or current) mixed, moderate F31.62 [facility] [address] [place] [address] 36685- 5748 May, Insomnia, unspecified type G47.00 [facility] [address] 02516- 1891 May, Bipolar I disorder, most recent episode (or current) mixed, moderate F31.62 [facility] [address] 46303- 9405 May, [facility] [address] 12749- 5066 May, Bipolar I disorder, most recent episode (or current) mixed, moderate F31.62 [facility] [address] [place] [address] 72806- 9485 May, Diabetes E11.9 and Essential hypertension I10 [facility] [address] [place] [address] 11096- 2811 Apr, Chronic pain G89.29 [facility] [address] 86580- 3443 Apr, Bipolar I disorder, most recent episode (or current) mixed, moderate F31.62 [facility] [address] [place] [address] 45496- 9266 Apr, [facility] [address] [place] [address] 13283- 7830 Apr, [facility] [address] 79258- 2105 Mar, Chronic pain G89.29 ; Headache, unspecified headache type R51 ; Neuropathy G62.9 ; Pain of right hip joint M25.551 and Essential hypertension I10 [facility] [address] [place] [address] 23232- 7587 Mar, Chronic pain G89.29 [facility] [address] [place] [address] 00298- 6891 Mar, Bipolar I disorder, most recent episode (or current) mixed, moderate F31.62 [facility] [address] 59695- 1252 Feb, Bipolar I disorder, most recent episode (or current) mixed, moderate F31.62 and Insomnia, unspecified type G47.00 [facility] [address] 31892- 9300 Feb, Chronic pain G89.29 [facility] [address] 84191- 1333 Feb, Bipolar I disorder, most recent episode (or current) mixed, moderate F31.62 [facility] [address] [place] [address] 60897- 6619 January, Bipolar I disorder, most recent episode (or current) mixed, moderate F31.62 [facility] [address] [place] [address] 63910- 9455 January, Chronic pain G89.29 [facility] [address] 86954- 4735 January, Chronic pain G89.29 and Essential hypertension I10 [facility] [address] 08254- 4831 January, Bipolar I disorder, most recent episode (or current) mixed, moderate F31.62 [facility] [address] [place] [address] 75045- 6279 Dec, [place] [place] [address] [address]- 8840 Dec, [facility] [address] [place] [address] 62511- 6006 Dec, [facility] [address] [address]- 5320 Dec, [facility] [address] [place] [address] 49456- 9265 Nov, Reactive airway disease J45.909 [facility] [address] [place] [address] 26986- 7432 Nov, [facility] [address] [place] [address] 97143- 3347 Nov, [facility] [id number] [place] [address] [id number] Nov, [facility] [id number] [place] [address] [id number] [phone] Nov, [facility] [id number] [place] [address] [id number] Nov, Onychomycosis B35.1 ; Hammertoe M20.40 ; Liberty or callus L84 and DM neuro manif type II E11.49 [facility] [id number] [place] [address] [id number] Nov, Chronic pain G89.29 ; Leukocytosis D72.829 and Diabetes E11.9 [facility] [address] [address] Nov, [facility] [id number] [place] [address] 12563- 4641 Oct, Bronchitis J40 [facility] [id number] [place] [address] 89196- 7833 Oct, [facility] [id number] [place] [address] 12223- 3100 Oct, [facility] [id number] [place] [address] 93945- 6921 Oct, Mastoiditis, unspecified laterality H70.90 and Type 2 diabetes mellitus with complication E11.8 [facility] [id number] [place] [address] 28119- 0969 Sep, [facility] [address] 51159- 8423 Sep, Dysuria R30.0 ; Cough R05 ; Benign prostatic hyperplasia with lower urinary tract symptoms, unspecified morphology N40.1 ; Hypokalemia E87.6 and Eustachian tube dysfunction, unspecified laterality H69.80 [facility] [id number] [place] [address] 66466- 3869 Sep, Moderate mixed bipolar I disorder F31.62 [facility] [address] 16005- 8919 Sep, Hypokalemia E87.6 [facility] [id number] [place] [address] 03942- 4934 Sep, [facility] [id number] [place] [address] 39175- 2366 Sep, Upper respiratory tract infection, unspecified type J06.9 [facility] [id number] [place] [address] 35136- 3998 Aug, [facility] [id number] [place] [address] 01444- 8627 Aug, Dysuria R30.0 [facility] [address] 35066- 5405 Aug, [facility] [id number] [place] [address] 90270- 6777 Jul, [facility] [id number] [place] [address] 55793- 0817 Jul, [facility] [address] [address]- 1291 Jul, [facility] [address] [address]- 1480 Jul, [facility] [address] [address]- 7842 Jun, [facility] [id number] [place] [address] 365067- 8983 Jun, [facility] [address] [address]- 0756 Jun, [facility] [id number] [place] [address] 86011- 6798 May, [facility] [id number] [place] [address] 33631- 7514 May, Bipolar I disorder, most recent episode (or current) mixed, moderate 296.62 [facility] [address] [address]- 8887 May, [facility] [id number] [place] [address] 70268- 9698 May, Bipolar I disorder, most recent episode (or current) mixed, moderate 296.62 and Major depressive disorder, recurrent episode, severe, specified as with psychotic behavior 296.34 [facility] [address] [address]- 6002 May, Bipolar I disorder, most recent episode (or current) mixed, moderate 296.62 [facility] [address] [address]- 9419 May, [facility] [address] [address] 2696 Apr, [facility] [address] [address]- 0563 Apr, [facility] [id number] [place] [address] 46162- 6181 Apr, Unspecified disorder of kidney and ureter 593.9 and Diabetes mellitus type 2, uncontrolled 250.02 [facility] [id number] [place] [address] 48311- 6257 Apr, [facility] [id number] [place] [address] 86946- 3228 Apr, [facility] [id number] [place] [address] 55422- 4067 Apr, [facility] [id number] [place] [address] 59923- 7159 Apr, [facility] [id number] [place] [address] 71060- 6209 Apr, Diabetes mellitus type II, uncontrolled 250.02 [facility] [id number] [place] [address] 02376- 7739 Apr, [facility] [id number] [place] [address] 19939- 5305 Mar, [facility] [id number] [place] [address] 75124- 4146 Mar, [facility] [id number] [place] [address] 84363- 1814 Mar, [facility] [address] [place] [address] 88131- 6073 Mar, Major depressive disorder, recurrent episode, severe, specified as with psychotic behavior 296.34 and Bipolar I disorder, most recent episode (or current) mixed, moderate 296.62 [facility] [address] [place] [address] 57659- 9448 Mar, Diabetes 250.00 ; Anuria 788.5 ; Nausea and vomiting 787.01 and Diarrhea 787.91 [facility] [id number] [place] [address] 61298- 1861 Mar, Diabetes 250.00 [facility] [address] [address]- 0993 Mar, [facility] [id number] [place] [address] 86647- 2743 Mar, Diabetes 250.00 [facility] [address] [address]- 7579 Mar, [facility] [id number] [place] [address] 52102- 5332 Mar, [facility] [id number] [place] [address] 34898- 7960 Mar, [facility] [id number] [place] [address] 36893- 0023 Mar, [facility] [id number] [place] [address] 03216- 6815 Mar, Bipolar I disorder, most recent episode (or current) mixed, moderate 296.62 and Major depressive disorder, recurrent episode, severe, specified as with psychotic behavior 296.34 [facility] [id number] [place] [address] 20188- 1237 Mar, Magnesium deficiency 275.2 ; Hypokalemia 276.8 ; Nausea & vomiting 787.01 and Diabetes mellitus type 2, uncontrolled 250.02 [facility] [address] [address]- 0012 Feb, [facility] [id number] [place] [address] 36766- 5417 Feb, Bipolar I disorder, most recent episode (or current) mixed, moderate 296.62 [facility] [id number] [place] [address] 17526- 0072 Feb, Nausea and vomiting 787.01 ; Left elbow pain 719.42 ; Anuria 788.5 and Diabetes 250.00 [facility] [address] [address]- 0798 Feb, [facility] [address] [address]- 7815 Feb, Hypopotassemia 276.8 and Hypokalemia 276.8 [facility] [id number] [place] [address] 88838- 5890 Feb, Hypopotassemia 276.8 and Hypokalemia 276.8 [facility] [address] [place] [address] 71672- 3543 Feb, Seborrheic keratoses 702.19 [facility] [address] [place] [address] 36189- 7559 Feb, Hypopotassemia 276.8 and Low magnesium levels 275.2 [facility] [id number] [place] [address] 53454- 6768 January, [facility] [address] [place] [address] 81620- 6803 January, [facility] [address] [place] [address] 41080- 3703 January, [facility] [address] [place] [address] 60952- 4000 January, Scalp lesion 709.9 [facility] [address] [place] [address] 60647- 4017 January, [facility] [id number] [place] [address] 68757- 2161 Dec, Tear of medial cartilage or meniscus of knee, current 836.0 and 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 [facility] [address] [address]- 1763 Dec, [facility] [id number] [place] [address] 10109- 1000 Dec, [facility] [address] [address]- 7973 Dec, Squamous cell carcinoma, 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 [facility] [place] [facility] [address] [id number] [place] [address]- 9910 14 Dec, 2014 [facility] [place] [facility] [address] [id number] [place] [address]- 8926 Dec, [facility] [place] [facility] [address] [id number] [place] [address]- 2096 Nov, [facility] [place] [facility] [address] [id number] [place] [address]- 9655 Nov, [facility] [place] [facility] [address] [id number] [place] [address]- 6239 Nov, [facility] [place] [facility] [address] [id number] [place] [address]- 3167 Nov, [facility] [place] [facility] [address] [facility] [id number] [place] [address]- 6468 Nov, [facility] [place] [facility] [address] [facility] [id number] [place] [address]- 0286 Nov, [facility] [place] [facility] [address] [facility] [id number] [place] [address]- 1703 Nov, [facility] [place] [facility] [address] [facility] [id number] [place] [address]- 4947 Nov, [facility] [place] [facility] [address] [facility] [id number] [place] [address]- 6655 Nov, [facility] [place] [facility] [address] [facility] [id number] [place] [address]- 0784 Nov, [facility] [place] [facility] [address] [facility] [id number] [place] [address]- 2595 Nov, [facility] [place] [facility] [address] [facility] [id number] [place] [address]- 6553 Nov, [facility] [place] [facility] [address] [facility] [id number] [place] [address]- 7803 Oct, [facility] [place] [facility] [address] [facility] [id number] [place] [address]- 0801 Oct, 2014 [facility] [place] [facility] [address] [id number] [place] [address]- 0822 Oct, 2014 [facility] [place] [facility] [address] [facility] [id number] [place] [address]- 6856 Oct, 2014 [facility] [place] [facility] [address] [facility] [id number] [place] [address]- 0306 Oct, 2014 [facility] [place] [facility] [address] [facility] [id number] [place] [address]- 9337 Oct, 2014 [facility] [place] [facility] [address] [facility] [id number] [place] [address]- 9599 Oct, 2014 [facility] [place] [facility] [id number] [place] [address]- 7303 Oct, 2014 [facility] [place] [facility] [address] [place] [address]- 2151 Oct, [facility] [place] [facility] [address] [facility] [id number] [place] [address]- 9609 Sep, [facility] [place] [facility] [id number] [place] [address]- 4876 Sep, [facility] [place] [facility] [id number] [address]- 5560 Sep, [facility] [place] [facility] [id number] [address]- 8182 Sep, [facility] [place] [facility] [address] [facility] [id number] [place] [address]- 8719 Sep, [facility] [place] [facility] [address] [facility] [id number] [place] [address]- 6143 Sep, [facility] [place] [facility] [address] [facility] [id number] [place] [address]- 8157 Sep, [facility] [place] [facility] [address] [facility] [id number] [place] [address]- 4633 Sep, [facility] [place] [facility] [address] [id number] [place] [address]- 5389 Sep, [facility] [place] [facility] [address] [id number] [place] [address]- 7727 Sep, [facility] [place] [facility] [address] [id number] [place] [address]- 4073 Sep, [facility] [place] [facility] [address] [id number] [place] [address]- 3952 Sep, [facility] [place] [facility] [address] [id number] [place] [address]- 3309 Sep, [facility] [place] [facility] [address] [id number] [place] [address]- 3758 Sep, [facility] [place] [facility] [address] [id number] [place] [address]- 1948 Sep, [facility] [place] [facility] [address] [id number] [place] [address]- 0809 Sep, [facility] [place] [facility] [address] [id number] [place] [address]- 5936 Aug, [facility] [place] [facility] [address] [id number] [place] [address]- 9367 Aug, [facility] [place] [facility] [address] [id number] [place] [address]- 5247 Aug, [facility] [place] [facility] [address] [id number] [place] [address]- 1909 31 Aug, 2014 [facility] [place] [facility] [address] [id number] [place] [address]- 0173 31 Aug, 2014 [facility] [place] [facility] [address] [id number] [place] [address]- 6424 31 Aug, 2014 [facility] [place] [facility] [address] [id number] [place] [address]- 7933 17 Aug, 2014 [facility] [place] [facility] [address] [id number] [place] [address]- 6627 Aug, [facility] [address] [id number] [place] [address]- 4516 Aug, [facility] [address] [id number] [place] [address]- 2446 Aug, [facility] [address] [id number] [place] [address]- 4864 Aug, [facility] [address] [place] [id number] Aug, [facility] [place] [facility] [address] [id number] [place] [address]- 8540 Aug, [facility] [address] [id number] [place] [address]- 8375 Aug, [facility] [address] [id number] [place] [address]- 5025 Aug, [facility] [address] [id number] [place] [address]- 6077 Aug, [facility] [address] [id number] [place] [address]- 7667 Aug, [facility] [address] [id number] [place] [address]- 1593 Aug, [facility] [address] [id number] [place] [address]- 2285 Aug, [facility] [place] [facility] [address] [id number] [place] [address]- 0249 Aug, [facility] [place] [facility] [address] [id number] [place] [address]- 1127 Aug, [facility] [place] [facility] [address] [id number] [place] [address]- 6041 Aug, [facility] [place] [facility] [address] [id number] [place] [address]- 1510 Aug, [facility] [address] [id number] [place] [address]- 7228 Aug, [facility] [place] [facility] [address] [id number] [place] [address]- 9190 Aug, [facility] [place] [facility] [address] [id number] [place] [address]- 4383 Aug, [facility] [place] [facility] [address] [id number] [place] 7234 Aug, [facility] [place] [facility] [address] [id number] [place] [address]- 6003 Aug, [facility] [place] [facility] [address] [id number] [place] [address]- 5361 Aug, [facility] [place] [facility] [address] [id number] [place] [address]- 1267 Aug, [facility] [place] [facility] [address] [id number] [place] [address]- 9796 Jul, [facility] [place] [facility] [address] [id number] [place] [address]- 5378 Jul, [facility] [place] [facility] [address] [id number] [place] [address]- 1687 Jul, [facility] [place] [facility] [address] [facility] [id number] [place] [address]- 4143 Jul, [facility] [place] [facility] [address] [id number] [place] [address]- 2068 Jul, [facility] [place] [facility] [address] [id number] [place] [address]- 8445 Jul, [facility] [place] [facility] [address] [id number] [place] [address]- 0288 Jul, [facility] [place] [facility] [address] [id number] [place] [address]- 7205 Jul, [facility] [place] [facility] [address] [id number] [place] [address]- 5781 Jul, [facility] [place] [facility] [address] [id number] [place] [address]- 5604 Jul, [facility] [place] [facility] [address] [id number] [place] 6815 Jun, [facility] [place] [facility] [address] [id number] [place] 6589 Jun, [facility] [place] [facility] [address] [id number] [place] [address]- 3677 Jun, [facility] [place] [facility] [address] [id number] [place] [address]- 4259 Jun, [facility] [place] [facility] [address] [id number] [place] [address]- 3614 Jun, [facility] [place] [facility] [address] [id number] [place] [address]- 7899 Jun, [facility] [place] [facility] [address] [id number] [place] [address]- 1190 Jun, [facility] [place] [facility] [address] [id number] [place] [address]- 5294 Jun, [facility] [place] [facility] [address] [id number] [place] [address]- 7202 Jun, [facility] [place] [facility] [address] [id number] [place] [address]- 2022 Jun, [facility] [place] [facility] [address] [id number] [place] [address]- 9991 29 May, 2014 [facility] [place] [facility] [address] [id number] [place] [address]- 6681 29 May, 2014 [facility] [place] [facility] [address] [id number] [place] [address]- 1480 May, [facility] [place] [facility] [address] [id number] [place] [address]- 7042 May, [facility] [place] [facility] [address] [id number] [place] [address]- 2898 17 May, 2013 [facility] [place] [facility] [address] [id number] [place] [address] 2546 17 May, 2013 [facility] [place] [facility] [address] [id number] [place] [address] 2546 15 May, 2013 [facility] [place] [facility] [address] [id number] [place] [address] 2546 15 May, 2013 [facility] [place] [facility] [address] [id number] [place] [address] 2546 15 May, 2013 [facility] [place] [facility] [address] [id number] [place] [address]- 0065 15 May, 2013 [facility] [place] [facility] [address] [id number] [place] [address]- 9678 10 May, 2013 [facility] [place] [facility] [address] [id number] [place] [address]- 6392 10 May, 2013 [facility] [place] [facility] [address] [id number] [place] [address]- 1236 09 May, 2013 [facility] [place] [facility] [address] [id number] [place] [address] 2548 09 May, 2013 [facility] [place] [facility] [address] [id number] [place] [address]- 2543 04 May, 2014 [facility] [place] [facility] [address] [id number] [place] [address] 254 May, 2013 [facility] [place] [facility] [address] [id number] [place] [address]- 1842 Apr, [facility] [place] [facility] [address] [id number] [place] [address]- 2547 Apr, [facility] [place] [facility] [address] [id number] [place] [address]- 2458 Apr, [facility] [place] [facility] [address] [id number] [place] [address]- 4792 Apr, [facility] [place] [facility] [address] [id number] [place] [address]- 5160 Apr, [facility] [place] [facility] [address] [id number] [facility] [place] [address] Apr, [facility] [place] [facility] [address] [id number] [place] [address] Apr, [facility] [place] [facility] [address] [id number] [place] [address] Apr, [facility] [place] [facility] [address] [id number] [place] [address] Apr, [facility] [place] [facility] [address] [id number] [place] [address] Apr, [facility] [place] [facility] [address] [id number] [place] [address] Apr, [facility] [place] [facility] [address] [id number] [place] [address] Apr, [facility] [place] [facility] [address] [id number] [place] [address] Apr, [facility] [place] [facility] [address] [id number] [place] [address] Apr, [facility] [place] [facility] [address] [id number] [place] [address] Apr, [facility] [place] [facility] [address] [id number] [place] [address] Mar, [facility] [place] [facility] [address] [id number] [place] [address] Mar, [facility] [place] [facility] [address] [id number] [place] [address] Mar, [facility] [place] [facility] [address] [id number] [place] [address] Mar, [facility] [place] [facility] [address] [id number] [place] [address] Mar, [facility] [place] [facility] [address] [id number] [place] [address] Mar, 2013 [facility] [place] [facility] [address] [id number] [place] [address] Mar, 2013 [facility] [place] [facility] [address] [id number] [place] [address] Mar, 2013 [facility] [place] [facility] [address] [id number] [place] [address] Mar, 2013 [facility] [place] [facility] [address] [id number] [place] [address] Mar, 2013 [facility] [place] [facility] [address] [id number] [place] [address] Mar, 2013 [facility] [place] [facility] [address] [id number] [place] [address]- [address] Mar, 2013 [facility] [place] [facility] [address] [id number] [place] [address]- [address] Mar, 2013 [facility] [place] [facility] [address] [id number] [place] [address] Mar, 2013 [facility] [place] [facility] [address] [id number] [place] [address] Mar, 2013 [facility] [place] [facility] [address] [id number] [place] [address] Mar, 2013 [facility] [place] [facility] [address] [id number] [place] [address] 69[address] Mar, [facility] [place] [facility] [address] [id number] [place] [address] Mar, [facility] [place] [facility] [address] [id number] [place] [address] Feb, [facility] [place] [facility] [address] [id number] [place] [address] Feb, [facility] [place] [facility] [address] [id number] [place] [address] Feb, [facility] [place] [facility] [address] [id number] [place] [address] Feb, [facility] [place] [facility] [address] [id number] [place] [address] Feb, [facility] [place] [facility] [address] [id number] [place] [address] Feb, [facility] [place] [facility] [address] [id number] [place] [address] Feb, [facility] [place] [facility] [address] [id number] [place] [address] Feb, [facility] [place] [facility] [address] [id number] [place] [address] Feb, [facility] [place] [facility] [address] [id number] [place] [address] Feb, [facility] [place] [facility] [address] [id number] [place] [address] Feb, [facility] [place] [facility] [address] [id number] [place] [address] 1406 Feb, [facility] [place] [facility] [address] [id number] [place] [address] 34[address] Feb, [facility] [place] [facility] [address] [id number] [place] [address] Feb, [facility] [place] [facility] [address] [id number] [place] [address] January, [facility] [place] [facility] [address] [id number] [place] [address] January, [facility] [place] [facility] [address] [id number] [place] [address] 85[address] January, [facility] [place] [facility] [address] [id number] [place] [address]65 January, [facility] [place] [facility] [address] [id number] [place] [address] January, [facility] [place] [facility] [address] [id number] [place] [address] January, [facility] [place] [facility] [address] [id number] [place] [address]- 1626 January, [facility] [place] [facility] [address] [id number] [place] [address]79 January, [facility] [place] [facility] [address] [id number] [place] [address] 1999 January, [facility] [place] [facility] [address] [id number] [place] [address] 0346 January, [facility] [place] [facility] [address] [id number] [place] [address] 117[address] January, [facility] [place] [facility] [address] [id number] [place] [address] 4734 January, [facility] [place] [facility] [address] [id number] [place] [address]- 7029 January, [facility] [place] [facility] [address] [id number] [place] [address] 9097 January, [facility] [place] [facility] [address] [id number] [place] [address] 8751 Dec, [facility] [place] [facility] [address] [id number] [place] [address]- 1874 Dec, [facility] [place] [facility] [address] [id number] [place] [address] 0555 Dec, [facility] [place] [facility] [address] [id number] [place] [address] 3938 Dec, [facility] [place] [facility] [address] [id number] [place] [address]- 9386 Dec, [facility] [place] [facility] [address] [id number] [place] [address]- 6801 Dec, [facility] [place] [facility] [address] [id number] [place] [address]- 8169 Dec, [facility] [place] [facility] [address] [id number] [place] [address]- 4857 Dec, [facility] [place] [facility] [address] [id number] [place] [address]- 0314 Dec, [facility] [place] [facility] [address] [id number] [place] [address]- 9804 Dec, [facility] [place] [facility] [address] [id number] [place] [address]- 4235 Nov, [facility] [place] [facility] [address] [id number] [place] [address]- 5718 Nov, [facility] [place] [facility] [address] [id number] [place] [address]- 5480 Nov, [facility] [place] [facility] [address] [id number] [place] [address]- 2699 Nov, [facility] [place] [facility] [address] [id number] [place] [address]- 8186 Nov, [facility] [place] [facility] [address] [id number] [place] [address]- 8578 Nov, [facility] [place] [facility] [address] [id number] [place] [address]- 0694 Nov, [facility] [place] [facility] [address] [id number] [place] [address]- 0037 Nov, [facility] [place] [facility] [address] [id number] [place] [address]- 1059 Nov, [facility] [place] [facility] [address] [id number] [place] [address]- 9106 Nov, [facility] [place] [facility] [address] [id number] [place] [address]- 9711 Oct, [facility] [place] [facility] [address] [id number] [place] [address]- 4433 Oct, [facility] [place] [facility] [address] [id number] [place] [address]- 1484 Oct, [facility] [place] [facility] [address] [id number] [place] [address]- 9336 Oct, [facility] [place] [facility] [address] [id number] [place] [address]- 2939 Oct, [facility] [place] [facility] [address] [id number] [place] [address]- 5570 Oct, [facility] [place] [facility] [address] [id number] [place] [address]- 8504 Oct, [facility] [place] [facility] [address] [facility] [id number] [place] [address]- 6497 Oct, [facility] [place] [facility] [address] [id number] [place] [address] 1935 Oct, [facility] [place] [facility] [address] [id number] [place] [address]- 8595 Oct, [facility] [place] [facility] [address] [facility] [id number] [place] [address]- 1802 Oct, [facility] [place] [facility] [address] [facility] [id number] [place] [address]- 6821 Oct, [facility] [place] [facility] [address] [id number] [place] [address]- 6507 Oct, [facility] [place] [facility] [address] [id number] [place] [address]- 9327 Oct, [facility] [place] [facility] [address] [id number] [place] [address]- 2038 Sep, [facility] [place] [facility] [address] [facility] [id number] [place] [address]- 7628 Sep, [facility] [place] [facility] [address] [id number] [place] [address]- 8542 15 Sep, 2013 [facility] [address] [id number] [place] [address]- 4759 15 Sep, 2013 [facility] [place] [facility] [address] [id number] [place] [address]- 6028 14 Sep, 2013 [facility] [place] [facility] [address] [id number] [place] [address]- 5018 14 Sep, 2013 [facility] [place] [facility] [address] [id number] [place] [address]- 5437 14 Sep, 2013 [facility] [place] [facility] [address] [id number] [place] [address]- 0339 Sep, [facility] [place] [facility] [address] [id number] [place] [address]- 7332 08 Sep, 2013 [facility] [place] [facility] [address] [id number] [place] [address]- 7056 Sep, [facility] [place] [facility] [address] [id number] [place] [address]- 7435 Aug, [facility] [place] [facility] [address] [id number] [place] [address]- 4153 Aug, [facility] [place] [facility] [address] [id number] [place] [address]- 5308 Jul, [facility] [place] [facility] [address] [id number] [place] [address]- 4749 Jul, [facility] [place] [facility] [address] [id number] [place] [address]- 1087 Jul, [facility] [place] [facility] [address] [id number] [place] [address]- 4490 Jul, [facility] [place] [facility] [address] [id number] [place] [address]- 2317 Jul, [facility] [place] [facility] [address] [id number] [place] [address]- 9429 Jul, [facility] [place] [facility] [address] [id number] [place] [address]- 4844 12 Jul, 2013 [facility] [place] [facility] [address] [id number] [place] [address]- 7073 Jul, [facility] [place] [facility] [address] [id number] [place] [address]- 2255 Jul, [facility] [place] [facility] [address] [id number] [place] [address]- 9728 08 Jul, 2013 [facility] [place] [facility] [address] [id number] [place] [address]- 3399 Jul, [facility] [place] [facility] [address] [id number] [place] [address]- 5889 Jul, [facility] [place] [facility] [address] [id number] [place] [address]- 2649 Jul, [facility] [place] [facility] [address] [id number] [place] [address]- 7870 Jul, [facility] [place] [facility] [address] [id number] [place] [address]- 1407 Jul, [facility] [place] [facility] [address] [id number] [place] [address]- 7927 Jul, [facility] [place] [facility] [address] [facility] [id number] [place] [address]- 4955 Jul, [facility] [place] [facility] [address] [id number] [place] [address]- 1234 Jul, [facility] [place] [facility] [address] [id number] [place] [address]- 4932 Jul, [facility] [place] [facility] [address] [id number] [place] [address]- 0901 Jun, [facility] [place] [facility] [address] [id number] [place] [address]- 7836 Jun, [facility] [place] [facility] [address] [id number] [place] [address]- 6310 Jun, 2012 [facility] [place] [facility] [address] [id number] [place] [address]- 0158 16 Jun, 2012 [facility] [place] [facility] [address] [id number] [place] [address]- 3993 16 Jun, 2012 [facility] [place] [facility] [address] [id number] [place] [address]- 2315 16 Jun, 2012 [facility] [place] [facility] [address] [id number] [place] [address]- 2613 10 Jun, 2012 [facility] [place] [facility] [address] [id number] [place] [address]- 2621 10 Jun, 2013 [facility] [place] [facility] [address] [id number] [place] [address]- 6086 09 Jun, 2013 [facility] [place] [facility] [address] [id number] [place] [address]- 3961 Jun, [facility] [place] [facility] [address] [id number] [place] [address]- 9694 Jun, [facility] [place] [facility] [address] [id number] [place] [address]- 3247 26 May, 2012 [facility] [place] [facility] [address] [id number] [place] [address]- 1607 25 Sep, 2012 [facility] [place] [facility] [address] [id number] [place] [address]- 1364 19 Sep, 2012 [facility] [place] [facility] [address] [id number] [place] [address]- 4115 17 Sep, 2012 [facility] [place] [facility] [address] [id number] [place] [address]- 8613 11 Sep, 2012 [facility] [place] [facility] [address] [id number] [place] [address]- 3624 10 May, 2012 [facility] [place] [facility] [address] [id number] [place] [address]- 4293 09 May, 2012 [facility] [place] [facility] [address] [id number] [place] [address]- 5594 May, [facility] [address] [id number] [place] [address]- 4541 Apr, [facility] [place] [facility] [address] [id number] [place] [address]- 6907 Apr, [facility] [place] [facility] [address] [id number] [place] [address]- 8328 Apr, [facility] [place] [facility] [address] [id number] [place] [address]- 9755 Apr, [facility] [place] [facility] [address] [id number] [place] [address]- 8347 Apr, [facility] [place] [facility] [address] [id number] [place] [address]- 2396 Mar, [facility] [place] [facility] [address] [id number] [place] [address]- 4376 Mar, [facility] [place] [facility] [address] [id number] [place] [address]- 8304 Mar, [facility] [place] [facility] [address] [id number] [place] [address]- 5009 Mar, [facility] [place] [facility] [address] [id number] [place] [address]- 8308 Mar, [facility] [place] [facility] [address] [id number] [place] [address]- 4119 Mar, [facility] [place] [facility] [address] [id number] [place] [address]- 9812 Mar, [facility] [place] [facility] [address] [id number] [place] [address]- 2946 Mar, [facility] [place] [facility] [address] [id number] [place] [address]- 1681 Feb, [facility] [place] [facility] [address] [id number] [place] [address]- 7045 Feb, [facility] [place] [facility] [address] [id number] [place] [address]- 3613 January, [facility] [address] [id number] [place] [address]- 2772 January, [facility] [place] [facility] [address] [id number] [place] [address]- 8802 Dec, [facility] [place] [facility] [address] [id number] [place] [address]- 0410 Dec, [facility] [address] [id number] [place] [address]- 3863 Nov, [facility] [place] [facility] [address] [id number] [place] [address]- 2348 Nov, [facility] [address] [id number] [place] [address]- 7864 Nov, [facility] [place] [facility] [address] [id number] [place] [address]- 1638 Nov, [facility] [address] [id number] [place] [address]- 3674 Oct, [facility] [place] [facility] [address] [id number] [place] [address]- 5067 Oct, [facility] [place] [facility] [address] [id number] [place] [address]- 3938 Oct, [facility] [place] [facility] [address] [id number] [place] [address]- 7192 Oct, [facility] [place] [facility] [address] [id number] [place] [address]- 2601 Oct, [facility] [place] [facility] [address] [id number] [place] [address]- 1865 14 Oct, 2012 [facility] [place] [facility] [address] [id number] [place] [address]- 7426 Oct, [facility] [place] [facility] [address] [id number] [place] [address]- 6448 07 Oct, 2012 [facility] [address] [id number] [place] [address]- 4419 03 Oct, 2012 [facility] [address] [id number] [place] [address]- 4793 30 Sep, 2012 [facility] [address] [id number] [place] [address]- 4389 Sep, [facility] [place] [facility] [address] [id number] [place] [address]- 7898 Sep, [facility] [address] [id number] [place] [address]- 7373 Sep, [facility] [address] [id number] [place] [address]- 5444 17 Sep, 2012 [facility] [address] [id number] [place] [address]- 3286 Sep, [facility] [address] [id number] [place] [address]- 6851 Sep, [facility] [address] [id number] [place] [address]- 0621 Sep, [facility] [address] [facility] [id number] [place] [address]- 0384 Aug, [facility] [address] [id number] [place] [address]- 8611 Aug, [facility] [place] [facility] [address] [id number] [place] [address]- 2543 Aug, [facility] [place] [facility] [address] [id number] [place] [address]- 4794 Aug, [facility] [place] [facility] [address] [id number] [place] [address]- 6849 Aug, [facility] [address] [id number] [place] [address]- 5785 Aug, [facility] [place] [facility] [address] [id number] [place] [address]- 4960 Aug, [facility] [place] [facility] [address] [id number] [place] [address]- 5961 Aug, [facility] [place] [facility] [address] [id number] [place] [address]- 0754 Jul, [facility] [place] [facility] [address] [id number] [place] [address], [place] [address]- 1784 Jul, [facility] [place] [facility] [address] [id number] [place] [address]- 0953 Jul, [facility] [place] [facility] [address] [id number] [place] [address], [place] [address]- 5174 Jul, [facility] [place] [facility] [address] [id number] [place] [address]- 0085 Jul, [facility] [place] [facility] [address] [id number] [place] [address], [place] [address]- 4057 Jul, [facility] [place] [facility] [address] [id number] [place] [address]- 6582 Jun, [facility] [place] [facility] [address] [id number] [place] [address]- 9157 Jun, [facility] [place] [facility] [address] [id number] [place] [address]- 5840 Jun, [facility] [place] [facility] [address] [id number] [address]- 3279 Jun, [facility] [place] [facility] [address] [id number] [place] [address]- 7978 Jun, [facility] [place] [facility] [address] [id number] [place] [address]- 7537 Jun, [facility] [place] [facility] [address] [id number] [place] [address]- 2663 Jun, [facility] [place] [facility] [address] [id number] [place] [address]- 5017 Jun, [facility] [place] [facility] [address] [id number] [place] [address]- 4150 Jun, [facility] [place] [facility] [address] [id number] [place] [address]- 0116 26 May, 2012 [facility] [place] [facility] [address] [id number] [place] [address]- 8766 24 May, 2012 [facility] [place] [facility] [address] [id number] [place] [address]- 5828 May, [facility] [place] [facility] [address] [id number] [place] [address]- 4465 Apr, [facility] [place] [facility] [address] [id number] [place] [address]- 1777 Apr, [facility] [place] [facility] [address] [id number] [place] [address]- 8287 Apr, [facility] [place] [facility] [address] [id number] [place] [address]- 5415 Apr, [facility] [place] [facility] [address] [id number] [place] [address]- 1321 Apr, [facility] [place] [facility] [address] [id number] [place] [address]- 1553 Apr, [facility] [place] [facility] [address] [id number] [place] [address]- 0072 Mar, [facility] [place] [facility] [address] [id number] [place] [address]- 2327 Mar, [facility] [place] [facility] [address] [id number] [place] [address]- 1920 Mar, [facility] [place] [facility] [address] [id number] [place] [address]- 1783 Mar, [facility] [place] [facility] [address] [id number] [place] [address]- 5835 Feb, [facility] [place] [facility] [address] [id number] [place] [address]- 9641 Feb, [facility] [address] [id number] [place] [address]- 2847 Feb, [facility] [address] [id number] [place] [address]- 7034 Feb, [facility] [address] [id number] [place] [address]- 6215 Feb, [facility] [address] [id number] [place] [address]- 0152 January, [facility] [address] [id number] [place] [address]- 4361 January, [facility] [address] [id number] [place] [address]- 5390 January, [facility] [address] [id number] [place] [address]- 5677 January, [facility] [address] [id number] [place] [address]- 4145 January, [facility] [address] [id number] [place] [address]- 6063 January, [facility] [address] [id number] [place] [address]- 7487 Dec, [facility] [address] [id number] [place] [address]- 8769 Dec, [facility] [address] [id number] [place] [address]- 3050 Dec, [facility] [place] [facility] [address] [id number] [place] [address]- 8713 Dec, [facility] [address] [id number] [place] [address] Dec, [facility] [address] [id number] [place] [address] Nov, [facility] [address] [id number] [place] [address] 14 Nov, 2011 [facility] [place] [facility] [address] [id number] [place] [address] 12 Nov, 2011 [facility] [place] [facility] [address] [id number] [place] [address] 07 Nov, 2011 [facility] [place] [facility] [address] [id number] [place] [address] 29 Oct, 2011 [facility] [place] [facility] [address] [id number] [place] [address] 28 Oct, 2011 [facility] [place] [facility] [address] [id number] [place] [address] 24 Oct, 2011 [facility] [place] [facility] [address] [id number] [place] [address] 13 Oct, 2011 [facility] [place] [facility] [address] [id number] [place] [address] 08 Oct, 2011 [facility] [place] [facility] [address] [id number] [place] [address] Sep, [facility] [place] [facility] [address] [id number] [place] [address] Sep, [facility] [place] [facility] [address] [id number] [place] [address] Sep, [facility] [place] [facility] [address] [id number] [place] [address] Sep, [facility] [place] [facility] [address] [id number] [place] [address] Sep, [facility] [place] [facility] [address] [id number] [place] [address] Sep, [facility] [place] [facility] [address] [id number] [place] [address] Aug, [facility] [place] [facility] [address] [id number] [place] [address] Aug, [facility] [place] [facility] [address] [id number] [place] [address] Aug, [facility] [place] [facility] [address] [id number] [place] [address] Jul, [facility] [place] [facility] [address] [id number] [place] [address] Jul, [facility] [place] [facility] [address] [id number] [place] [address] 160[address] Jul, [facility] [place] [facility] [address] [id number] [place] [address] Jul, [facility] [place] [facility] [address] [id number] [place] [address] Jun, [facility] [place] [facility] [address] [id number] [place] [address] Jun, [facility] [place] [facility] [address] [id number] [place] [address] Jun, [facility] [place] [facility] [address] [id number] [place] [address] Jun, [facility] [place] [facility] [address] [facility] [id number] [place] [address] Jun, [facility] [place] [facility] [address] [id number] [place] [address] 1247 Jun, [facility] [place] [facility] [address] [id number] [place] [address] Mar, [facility] [place] [facility] [address] [id number] [place] [address] Dec, [facility] [place] [facility] [address] [id number] [place] [address] Dec, [facility] [place] [facility] [address] [id number] [place] [address] Nov, [facility] [place] [facility] [address] [id number] [place] [address]116 16 Nov, 2010 [facility] [address] [id number] [place] [address] 10 Sep, 2010 [facility] [address] [id number] [place] [address] 31 Aug, 2010 [facility] [address] [id number] [place] [address] Aug, [facility] [address] [id number] [place] [address] 29 Aug, 2010 [facility] [address] [id number] [place] [address] Aug, [facility] [address] [id number] [place] [address] Aug, [facility] [address] [id number] [place] [address] 14 Aug, 2010 [facility] [address] [id number] [place] [address] Aug, [facility] [address] [id number] [place] [address]- 99[address] Aug, [facility] [address] [id number] [place] [address] Aug, [facility] [address] [id number] [place] [address]- [address] Aug, [facility] [address] [id number] [place] [address] Aug, [facility] [place] [facility] [address] [id number] [place] [address] 9[address] Aug, [facility] [address] [id number] [place] [address]- [address]70 30 Jul, 2010 [facility] [address] [id number] [address] Jul, [facility] [place] [facility] [address] [id number] [place] [address]- 56[address] 30 Jul, 2010 [facility] [place] [facility] [address] [id number] [place] [address]- [address] Jul, [facility] [place] [facility] [address] [id number] [place] [address]- 0256 Jul, [facility] [place] [facility] [address] [id number] [place] [address]47 Jul, [facility] [place] [facility] [address] [id number] [place] [address]- [address]55 24 Jun, 2010 [facility] [place] [facility] [address] [id number] [place] [address]- [address] Jun, [facility] [place] [facility] [address] [id number] [place] [address]- 16[address] Jun, [facility] [place] [facility] [address] [id number] [place] [address]- 8646 Jun, [facility] [place] [facility] [address] [id number] [address] 16 Apr, 2010 [facility] [place] [facility] [address] [id number] [place] [address] Mar, [facility] [place] [facility] [address] [id number] [address] 78[address] Feb, [facility] [place] [facility] [address] [id number] [address] 3533 January, [facility] [place] [facility] [address] [id number] [place] [address]- 111[address] 15 Dec, 2009 [facility] [place] [facility] [address] [id number] [place] [address] Nov, [facility] [place] [facility] [address] [id number] [place] [address]- 9337 31 Aug, 2009 [facility] [place] [facility] [address] [id number] [place] [address]- 9056 Aug, [facility] [address] [id number] [place] [address]- 2736 Aug, [facility] [place] [facility] [address] [id number] [place] [id number] Jul, [facility] [address] [id number] [place] [address] Jul, [facility] [place] [facility] [address] [id number] [place] [address] Jul, [facility] [address] [id number] [place] [address] Jun, [facility] [address] [facility] [id number] [place] [address] Jun, [facility] [address] [facility] [id number] [place] [address] Jun, [facility] [address] [id number] [place] [address] Jun, [facility] [address] [facility] [id number] [place] [address] Jun, [facility] [address] [facility] [id number] [place] [address] Jun, [facility] [place] [facility] [address] [facility] [id number] [place] [address] Apr, [facility] [address] [id number] [place] [address] Apr, [facility] [place] [facility] [address] [facility] [id number] [place] [address] Feb, [facility] [place] [facility] [address] [facility] [id number] [place] [address] January, [facility] [address] [id number] [place] [address] Dec, IMMUNIZATIONS No Known Immunizations SOCIAL HISTORY Never Assessed REASON FOR VISIT PLAN OF CARE VITAL SIGNS MEDICATIONS Medication Instructions Dosage Frequency Start Date End Date Duration Status Bactrim DS 800-160 MG Orally Twice a day 1 tablet 12h Feb,Feb 07 days Active RESULTS No Results PROCEDURES No [...] obesity Medical History skin cancer-basal cell R [facility] (removed) Medical History Arthritis Medical History degenerative [...] 2009 Surgical History colonoscopy 2009 ([facility]), 2013 ([facility]) Surgical History heart 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 04/2014 Surgical History carotid US 05/2014 Surgical History resection of skin cancer from Right [facility] Surgical History Biopsy of Lung Bilateral/Left lung lymph node 09/2016 Surgical History Bone Marrow Biopsy Surgical History port in the right chest wall 12/2016 Hospitalization History [facility] low potassium, low magnesium, chest painina 01/2015 Hospitalization History inability to urinate 09/16/[address] [facility] early Hospitalization History hyperkalemia 10/2017 Hospitalization History fluid in lung
--- OUTSIDE RECORDS SUMMARY | 2018-08-08 14:10 | XMS REPORT ---
Author Author NOEMI WASHBURN Organization [facility] Address [address] [place] [address] Care Team Providers Care Attendant Child Activity Name Role Phone NOEMI WASHBURN Unavailable PROBLEMS Type Condition ICD9-CM Code XGK22-OX Code Onset Dates Condition Status SNOMED Code Problem Chronic lymphocytic leukemia C91.10 Active 88995812 Problem Lymphocytosis D72.820 Active 22629238 Problem Eye exam abnormal R93.8 Active 354841298 Problem Eustachian tube dysfunction, unspecified laterality H69.80 Active 38423278 Problem Essential hypertension I10 Active 52445040 Problem Dysuria R30.0 Active 04442123 Problem Diabetic polyneuropathy associated with type 2 diabetes mellitus E11.42 Active 76822785 Problem Cough R05 Active 60061091 Problem Polyneuropathy associated with underlying disease G63 Active 070258805 Problem Retinal edema H35.81 Active 9278956 Problem Bilateral primary osteoarthritis of knee M17.0 Active 149894156 Problem Primary osteoarthritis of right knee M17.11 Active 357005368113049 Problem Pure hypercholesterolemia E78.00 Active 252471769 Problem DM neuro manif type II E11.49 Active 53698017 Problem Benign prostatic hyperplasia with lower urinary tract symptoms, unspecified morphology N40.1 Active 874841258 Problem Hypokalemia E87.6 Active 57189554 Problem 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 Active 678108518 Problem Anemia of chronic illness D63.8 Active 734988887 Problem Bipolar disorder, in partial remission, most recent episode depressed F31.75 Active 72639705 Problem Falling R29.6 Active 328126197 Problem Leukocytosis D72.829 Active 922865865 Problem Reactive airway disease J45.909 Active 682194107581 Problem Diabetes E11.9 Active 96224273 Problem Chronic pain G89.29 Active 09981529 Problem Anxiety F41.9 Active 41714292 Problem Morbid obesity E66.01 Active 700981990 Problem Bipolar I disorder, most recent episode (or current) mixed, moderate F31.62 Active 76727011 Problem Insomnia, unspecified type G47.00 Active 139767824 ALLERGIES No Information ENCOUNTERS Encounter Location Date Diagnosis [facility] [id number] [place] [address] 39975- 9801 Jun, [facility] [id number] [place] [address] 87340- 5504 Apr, [facility] [facility] [address] 05604- 7868 Apr, Chronic pain G89.29 [facility] [facility] [address] 08203- 0738 Apr, Primary osteoarthritis of right knee M17.11 [facility] [facility] [address] 27353- 4167 Mar, [facility] [facility] [address] 52090- 2809 Mar, BMI 50.0-59.9, adult Z68.43 and Bipolar disorder, in partial remission, most recent episode depressed F31.75 [facility] [facility] [address] 77960- 6786 Mar, Diabetes E11.9 ; Pure hypercholesterolemia E78.00 ; Essential hypertension I10 ; Nausea with vomiting, unspecified R11.2 and Headache, unspecified headache type R51 [facility] [facility] [id number] [place] [address] 39931- 8056 Mar, Bipolar I disorder, most recent episode (or current) mixed, moderate F31.62 [facility] [address] 33292- 5351 Mar, Bipolar I disorder, most recent episode (or current) mixed, moderate F31.62 [facility] [facility] [id number] [place] [address] 80700- 8138 Mar, Chronic pain G89.29 [facility] [address] [place] [address] 5515 Mar, Bipolar I disorder, most recent episode (or current) mixed, moderate F31.62 [facility] [id number] [place] [address] 08608- 0233 Feb, Bipolar I disorder, most recent episode (or current) mixed, moderate F31.62 [facility] [id number] [place] [address] 45220- 1451 Feb, Chronic pain G89.29 [facility] [id number] [place] [address] 38647- 7450 Feb, Decubitus ulcer of right foot, stage 3 L89.893 and BMI 50.0- 59.9, adult Z68.43 [facility] [address] [place] [address] 24798- 9579 Feb, Bipolar I disorder, most recent episode (or current) mixed, moderate F31.62 [facility] [address] [place] [address] 7349 Feb, [facility] [id number] [place] [address] 93294- 1191 January, [facility] [id number] [place] [address] 29822- 9878 January, Chronic pain G89.29 [facility] [address] [place] [address]- 6047 January, Bipolar I disorder, most recent episode (or current) mixed, moderate F31.62 [facility] [address] [place] [address]- 2483 January, Bipolar I disorder, most recent episode (or current) mixed, moderate F31.62 [facility] [address] [place] [address]- 6319 Dec, Bipolar I disorder, most recent episode (or current) mixed, moderate F31.62 and BMI 50.0-59.9, adult Z68.43 [facility] [facility] [id number] [place] [address] 84359- 9196 Dec, Bipolar I disorder, most recent episode (or current) mixed, moderate F31.62 [facility] [id number] [place] [address] 01653- 2089 Dec, Chronic pain G89.29 [facility] [facility] [address] 953935- 4158 Dec, DM neuro manif type II E11.49 ; Right flank pain R10.9 ; half-way 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 Z79.891 ; Encounter for medication monitoring Z51.81 and BMI 50.0-59.9, adult Z68.43 [facility] [id number] [place] [address] 46579- 1726 Dec, Bipolar I disorder, most recent episode (or current) mixed, moderate F31.62 [facility] [id number] [place] [address] 99321- 4541 Nov, Bipolar I disorder, most recent episode (or current) mixed, moderate F31.62 [facility] [id number] [place] [address] 69481- 5356 Nov, Chronic pain G89.29 [facility] [id number] [place] [address] 49928- 7679 Nov, Bipolar I disorder, most recent episode (or current) mixed, moderate F31.62 [facility] [facility] [id number] [place] [address] 66816- 4070 Nov, Hypokalemia E87.6 [facility] [facility] [address] 40486- 6065 Nov, Bipolar I disorder, most recent episode (or current) mixed, moderate F31.62 [facility] [id number] [place] [address] 63645- 1486 Oct, Chronic pain G89.29 [facility] [id number] [place] [address] 80417- 2253 Oct, BMI 50.0-59.9, adult Z68.43 and Bipolar I disorder, most recent episode (or current) mixed, moderate F31.62 [facility] [id number] [place] [address] 33541- 7586 Oct, Bipolar I disorder, most recent episode (or current) mixed, moderate F31.62 [facility] [address] 42466- 4994 Oct, [facility] [address] 21322- 4910 Oct, Hypokalemia E87.6 [facility] [facility] [id number] [place] [address] 59618- 7128 Oct, DM neuro manif type II E11.49 [facility] [facility] [address] 86488- 8570 Oct, Bipolar I disorder, most recent episode (or current) mixed, moderate F31.62 [facility] [id number] [place] [address] 06908- 9187 Oct, Bipolar I disorder, most recent episode (or current) mixed, moderate F31.62 [facility] [id number] [place] [address] 45357- 2480 14 Oct, 2017 Hyperkalemia E87.5 ; Falling R29.6 ; BMI 50.0-59.9, adult Z68.43 and Acute left ankle pain M25.572 [facility] [id number] [place] [address] 79588- 0119 Oct, DM neuro manif type II E11.49 [facility] [id number] [place] [address] 38972- 2213 Oct, [facility] [address] 04543- 9760 Sep, Chronic pain G89.29 [facility] [id number] [place] [address] 08286- 6471 Sep, [place] [id number] [place] [address] 43148- 4746 Sep, Bilateral primary osteoarthritis of knee M17.[address] 23598- 6271 Sep, Generalized edema R60.1 [facility] [id number] [place] [address] 68085- 4952 Sep, Bipolar I disorder, most recent episode (or current) mixed, moderate F31.62 [facility] [id number] [place] [address] 11248- 1894 Sep, Hypoxia R09.02 ; Other hypervolemia E87.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 ; Anemia of chronic illness D63.8 and BMI 50.0- 59.9, adult Z68.43 [facility] [id number] [place] [address] 06554- 0646 Sep, [place] [id number] [place] [address] 81120- 0738 Sep, Bipolar I disorder, most recent episode (or current) mixed, moderate F31.62 [facility] [id number] [place] [address] 00801- 2274 Aug, Chronic pain G89.29 [facility] [id number] [place] [address] 59321- 9401 Aug, Generalized edema R60.1 [facility] [id number] [place] [address] 59203- 2554 Aug, [place] [address] 36661- 7646 Aug, [facility] [address], [place] [address]- 7195 14 Aug, 2017 Bipolar I disorder, most recent episode (or current) mixed, moderate F31.62 [facility] [address], [place] [address]- 8842 Aug, Bipolar I disorder, most recent episode (or current) mixed, moderate F31.62 [facility] [id number] [place] [address] 33298- 6999 04 Aug, 2017 Chronic pain G89.29 [facility] [id number] [place] [address] 06968- 5923 30 Jul, 2017 Bipolar I disorder, most recent episode (or current) mixed, moderate F31.62 [place] [id number] [place] [address] 39453- 9873 Jul, Bipolar I disorder, most recent episode (or current) mixed, moderate F31.62 and BMI 60.0-69.9, adult Z68.44 [facility] [id number] [place] [address] 44142- 6820 16 Jul, 2017 Bipolar I disorder, most recent episode (or current) mixed, moderate F31.62 [facility] [id number] [place] [address] 15272- 5085 06 Jul, 2017 Chronic pain G89.29 [facility] [id number] [place] [address] 78425- 1207 Jul, Bipolar I disorder, most recent episode (or current) mixed, moderate F31.62 [place] [id number] [place] [address] 51580- 0924 Jun, Polyneuropathy associated with underlying disease G63 and Diabetes E11.9 [facility] [id number] [place] [address] 63468- 2673 16 Jun, 2017 Bipolar I disorder, most recent episode (or current) mixed, moderate F31.62 [place] [id number] [address]- 9836 09 Jun, 2017 Chronic pain G89.29 [facility] [id number] [place] [address] 761584- 4896 27 May, 2017 Bipolar I disorder, most recent episode (or current) mixed, moderate F31.62 [facility] [id number] [place] [address] 56180- 6339 21 May, 2017 Bipolar I disorder, most recent episode (or current) mixed, moderate F31.62 [facility] [id number] [place] [address] 10108- 2418 20 May, 2017 Diabetic polyneuropathy associated with type 2 diabetes mellitus E11.42 [facility] [id number] [place] [address] 22858- 8433 18 May, 2017 Bipolar I disorder, most recent episode (or current) mixed, moderate F31.62 [facility] [id number] [place] [address] 19937- 6595 13 May, 2017 Bipolar I disorder, most recent episode (or current) mixed, moderate F31.62 [facility] [id number] [place] [address] 57835- 0199 12 May, 2017 Chronic pain G89.29 [facility] [address] [place] [address] 38555- 5238 Apr, Bipolar I disorder, most recent episode (or current) mixed, moderate F31.62 [facility] [address] [place] [address] 04230- 8220 Apr, [facility] [id number] [place] [address] 00018- 4405 Apr, Chronic pain G89.29 and DM neuro manif type II E11.49 [facility] [id number] [place] [address] 94113- 5394 Apr, [facility] [id number] [place] [address] 58380- 3595 Apr, Bipolar I disorder, most recent episode (or current) mixed, moderate F31.62 [facility] [address] [place] [address] 61703- 8196 Apr, Chronic pain G89.29 [facility] [id number] [place] [address] 16553- 8916 Apr, Iliotibial band syndrome, left M76.32 [facility] [id number] [place] [address] 774759- 1376 Apr, Bipolar I disorder, most recent episode (or current) mixed, moderate F31.62 [facility] [id number] [place] [address] 07189- 3184 Mar, Bipolar I disorder, most recent episode (or current) mixed, moderate F31.62 [facility] [id number] [place] [address] 50777- 1504 Mar, Bipolar I disorder, most recent episode (or current) mixed, moderate F31.62 [facility] [id number] [place] [address] 21176- 9797 Mar, [facility] [id number] [place] [address] 70820- 2592 Mar, Bipolar I disorder, most recent episode (or current) mixed, moderate F31.62 [facility] [id number] [place] [address] 67344- 5336 Mar, Chronic pain G89.29 [facility] [address] [place] [address] 26088- 8819 Mar, Bipolar I disorder, most recent episode (or current) mixed, moderate F31.62 [facility] [address] [place] [address] 39376- 8366 Mar, Bipolar I disorder, most recent episode (or current) mixed, moderate F31.62 [facility] [address] [place] [address] 70984- 4828 Mar, Acute pain of left knee M25.562 ; Left hip pain M25.552 ; Generalized edema R60.1 and Tongue swelling R22.0 [facility] [id number] [place] [address] 04451- 5319 Mar, [facility] [id number] [place] [address] 83674- 7838 Feb, Chronic pain G89.29 [facility] [id number] [place] [address] 01639- 7451 Feb, Diabetes E11.9 [place] [address] 62550- 5220 January, Chronic pain G89.29 [facility] [id number] [place] [address] 87161- 5076 January, [facility] [id number] [place] [address] 26714- 8283 January, Bipolar I disorder, most recent episode (or current) mixed, moderate F31.62 [facility] [id number] [place] [address] 07662- 3960 Dec, Bipolar I disorder, most recent episode (or current) mixed, moderate F31.62 [facility] [id number] [place] [address] 89367- 3113 Dec, Chronic pain G89.29 [facility] [id number] [place] [address] 85351- 9446 Dec, Bipolar I disorder, most recent episode (or current) mixed, moderate F31.62 [facility] [id number] [place] [address] 90366- 0790 Dec, Diabetes E11.9 ; Essential hypertension I10 ; Chronic pain G89.29 and Morbid obesity E66.01 [facility] [id number] [place] [address] 28682- 7091 Dec, [facility] [address] [place] [address]- 0026 Dec, Bipolar I disorder, most recent episode (or current) mixed, moderate F31.62 [facility] [address], [place] [address] 2546 Dec, Bipolar I disorder, most recent episode (or current) mixed, moderate F31.62 [facility] [address], [place] [address]- 6686 Nov, Chronic pain G89.29 [facility] [address], [place] [address] 2546 Nov, Bipolar I disorder, most recent episode (or current) mixed, moderate F31.62 [facility] [address], [place] [address]- 8686 Nov, [facility] [address], [place] [address]- 5016 Nov, Bipolar I disorder, most recent episode (or current) mixed, moderate F31.62 [facility] [address], [place] [address]- 7306 Nov, Bipolar I disorder, most recent episode (or current) mixed, moderate F31.62 [facility] [address], [place] [address]- 1816 Nov, [facility] [address], [place] [address]- 5426 Nov, [facility] [address], [place] [address] 2546 Nov, [facility] [address], [place] [address]- 3586 Oct, Chronic pain G89.29 [facility] [address], [place] [address]- 3396 Oct, Bipolar I disorder, most recent episode (or current) mixed, moderate F31.62 [facility] [id number] [place] [address] 18921- 9461 Oct, [facility] [id number] [place] [address] 00399- 2047 Oct, Chronic pain G89.29 ; Diabetes E11.9 ; Anxiety F41.9 and 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 [facility] [id number] [place] [address] 60814- 6993 Oct, [facility] [id number] [place] [address] 84043- 0848 Oct, Diabetes E11.9 [facility] [id number] [place] [address] 77410- 8262 Oct, Bipolar I disorder, most recent episode (or current) mixed, moderate F31.62 [facility] [id number] [place] [address] 80197- 8147 Sep, Chronic pain G89.29 [facility] [id number] [place] [address] 57772- 7915 Sep, Chronic pain G89.29 [facility] [id number] [place] [address] 71674- 4362 Aug, Chronic pain G89.29 [facility] [id number] [place] [address] 26225- 0584 Jul, [facility] [id number] [place] [address] 59007- 8436 Jul, Diabetes E11.9 [facility] [id number] [place] [address] 45868- 4874 Jul, Chronic pain G89.29 [facility] [id number] [place] [address] 72789- 0064 Jul, Bipolar I disorder, most recent episode (or current) mixed, moderate F31.62 [facility] [id number] [place] [address] 03508- 4016 Jun, Bipolar I disorder, most recent episode (or current) mixed, moderate F31.62 [facility] [facility] [id number] [place] [address] 93849- 8722 Jun, [facility] [facility] [id number] [place] [address] 84076- 2531 Jun, Bipolar I disorder, most recent episode (or current) mixed, moderate F31.62 [facility] [facility] [id number] [place] [address] 22123- 0567 May, Insomnia, unspecified type G47.00 [facility] [address] 41313- 4220 May, Bipolar I disorder, most recent episode (or current) mixed, moderate F31.62 [facility] [address] 70142- 9448 May, [facility] [address] 61757- 5963 May, Bipolar I disorder, most recent episode (or current) mixed, moderate F31.62 [facility] [id number] [place] [address] 56226- 3341 May, Diabetes E11.9 and Essential hypertension I10 [facility] [facility] [id number] [place] [address] 45590- 2305 Apr, Chronic pain G89.29 [facility] [facility] [address] 34029- 0012 Apr, Bipolar I disorder, most recent episode (or current) mixed, moderate F31.62 [facility] [id number] [place] [address] 48031- 5651 Apr, [facility] [id number] [place] [address] 14085- 9120 Apr, [facility] [facility] [address] 41507- 1788 Mar, Chronic pain G89.29 ; Headache, unspecified headache type R51 ; Neuropathy G62.9 ; Pain of right hip joint M25.551 and Essential hypertension I10 [facility] [id number] [place] [address] 73838- 0428 Mar, Chronic pain G89.29 [facility] [id number] [place] [address] 00020- 0754 Mar, Bipolar I disorder, most recent episode (or current) mixed, moderate F31.62 [facility] [address] 86266- 1087 Feb, Bipolar I disorder, most recent episode (or current) mixed, moderate F31.62 and Insomnia, unspecified type G47.00 [facility] [address] 14781- 7271 Feb, Chronic pain G89.29 [facility] [address] 16263- 9813 Feb, Bipolar I disorder, most recent episode (or current) mixed, moderate F31.62 [facility] [id number] [place] [address] 66048- 2765 January, Bipolar I disorder, most recent episode (or current) mixed, moderate F31.62 [facility] [id number] [place] [address] 82167- 7159 January, Chronic pain G89.29 [facility] [facility] [address] 17448- 8421 January, Chronic pain G89.29 and Essential hypertension I10 [facility] [address] 28743- 3651 January, Bipolar I disorder, most recent episode (or current) mixed, moderate F31.62 [facility] [id number] [place] [address] 67555- 2169 Dec, [place] [id number] [address] Dec, [facility] [id number] [place] [address] [id number]- 8733 Dec, [facility] [id number], [place] [address] Dec, [facility] [id number] [place] [address] 97437- 1254 Nov, Reactive airway disease J45.909 [facility] [id number] [place] [address] [id number]- 2005 Nov, [facility] [id number] [place] [address] 25723- 7042 Nov, [facility] [id number] [place] [address] [id number]- 1311 Nov, [facility] [id number] [place] [address] 47207- 7639 Nov, [facility] [id number] [place] [address] 92281- 0641 Nov, Onychomycosis B35.1 ; Hammertoe M20.40 ; [place] or callus L84 and DM neuro manif type II E11.49 [facility] [id number] [place] [address] 86161- 7900 Nov, Chronic pain G89.29 ; Leukocytosis D72.829 and Diabetes E11.9 [facility] [id number], [place] [address] Nov, [facility] [id number] [place] [address] 82310- 2649 Oct, Bronchitis J40 [facility] [id number] [place] [address] 58367- 3734 Oct, [facility] [id number] [place] [address] 73408- 4213 Oct, [facility] [id number] [place] [address] 61374- 3368 Oct, Mastoiditis, unspecified laterality H70.90 and Type 2 diabetes mellitus with complication E11.8 [facility] [id number] [place] [address] 08980- 8992 Sep, [facility] [address] 32913- 6528 Sep, Dysuria R30.0 ; Cough R05 ; Benign prostatic hyperplasia with lower urinary tract symptoms, unspecified morphology N40.1 ; Hypokalemia E87.6 and Eustachian tube dysfunction, unspecified laterality H69.80 [place] [id number] [place] [address] 67953- 8530 Sep, Moderate mixed bipolar I disorder F31.62 [address] [address] 7[address]30- 1979 Sep, Hypokalemia E87.6 [place] [id number] [place] [address] 53884- 2179 Sep, [place] [id number] [place] [address] 15591- 3575 Sep, Upper respiratory tract infection, unspecified type J06.9 [place] [id number] [place] [address] 87840- 5121 Aug, [facility] [id number] [place] [address] 49726- 1086 Aug, Dysuria R30.0 [place] [address] 97928- 7590 Aug, [facility] [id number] [place] [address] 35907- 2364 Jul, [facility] [id number] [place] [address] 47408- 3950 Jul, [facility] [address] [address]- 5337 Jul, [facility] [address] [address]- 2051 Jul, [facility] [address] [address]- 3795 Jun, [facility] [id number] [place] [address] 483827- 8240 Jun, [facility] [address], [place] [address]- 9657 Jun, [facility] [id number] [place] [address] 22982- 0934 May, [facility] [id number] [place] [address] 76237- 1385 May, Bipolar I disorder, most recent episode (or current) mixed, moderate 296.62 [facility] [address] [address]- 6410 May, [facility] [id number] [place] [address] 27102- 7262 May, Bipolar I disorder, most recent episode (or current) mixed, moderate 296.62 and Major depressive disorder, recurrent episode, severe, specified as with psychotic behavior 296.34 [facility] [address], [place] [address]- 6721 May, Bipolar I disorder, most recent episode (or current) mixed, moderate 296.62 [facility] [address], [place] [address]- 0850 May, [facility] [address] 2047 Apr, [facility] [address], [place] [address]- 4250 Apr, [facility] [id number] [place] [address] 30709- 8337 Apr, Unspecified disorder of kidney and ureter 593.9 and Diabetes mellitus type 2, uncontrolled 250.02 [facility] [id number] [place] [address] 46894- 0951 Apr, [facility] [id number] [place] [address] 66433- 3674 Apr, [facility] [id number] [place] [address] 39972- 3873 Apr, [facility] [id number] [place] [address] 27687- 4398 Apr, [facility] [id number] [place] [address] 62350- 7264 Apr, Diabetes mellitus type II, uncontrolled 250.02 [facility] [id number] [place] [address] 36989- 7067 Apr, [facility] [id number] [place] [address] 60277- 8472 Mar, [facility] [id number] [place] [address] 46939- 7733 Mar, [facility] [id number] [place] [address] 58063- 9485 Mar, [facility] [id number] [place] [address] 39942- 8548 Mar, Major depressive disorder, recurrent episode, severe, specified as with psychotic behavior 296.34 and Bipolar I disorder, most recent episode (or current) mixed, moderate 296.62 [facility] [id number] [place] [address] 47062- 7150 Mar, Diabetes 250.00 ; Anuria 788.5 ; Nausea and vomiting 787.01 and Diarrhea 787.91 [facility] [id number] [place] [address] 75183- 6783 Mar, Diabetes 250.00 [facility] [address], [place] [address]- 5917 Mar, [facility] [id number] [place] [address] 92451- 6568 Mar, Diabetes 250.00 [facility] [address], [place] [address]- 1282 Mar, [facility] [id number] [place] [address] 46711- 1388 Mar, [facility] [id number] [place] [address] 77071- 3297 Mar, [facility] [id number] [place] [address] 97693- 8272 Mar, [facility] [id number] [place] [address] 54201- 0674 Mar, Bipolar I disorder, most recent episode (or current) mixed, moderate 296.62 and Major depressive disorder, recurrent episode, severe, specified as with psychotic behavior 296.34 [facility] [id number] [place] [address] 96690- 4624 Mar, Magnesium deficiency 275.2 ; Hypokalemia 276.8 ; Nausea & vomiting 787.01 and Diabetes mellitus type 2, uncontrolled 250.02 [facility] [address], [place] [address]- 3274 Feb, [facility] [id number] [place] [address] 42332- 4940 Feb, Bipolar I disorder, most recent episode (or current) mixed, moderate 296.62 [facility] [id number] [place] [address] 34611- 7117 Feb, Nausea and vomiting 787.01 ; Left elbow pain 719.42 ; Anuria 788.5 and Diabetes 250.00 [facility] [address], [place] [address]- 1338 Feb, [facility] [address], [place] [address]- 5142 Feb, Hypopotassemia 276.8 and Hypokalemia 276.8 [facility] [id number] [place] [address] 90462- 4632 Feb, Hypopotassemia 276.8 and Hypokalemia 276.8 [facility] [id number] [place] [address] 97503- 6243 Feb, Seborrheic keratoses 702.19 [facility] [id number] [place] [address] 39150- 7480 Feb, Hypopotassemia 276.8 and Low magnesium levels 275.2 [facility] [id number] [place] [address] 07312- 5286 January, [facility] [id number] [place] [address] 93376- 4079 January, [facility] [id number] [place] [address] 27054- 6035 January, [facility] [id number] [place] [address] 19752- 5592 January, Scalp lesion 709.9 [facility] [id number] [place] [address] 67667- 1621 January, [facility] [id number] [place] [address] 66898- 4603 Dec, Tear of medial cartilage or meniscus of knee, current 836.0 and 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 [facility] [address], [place] [address]- 2065 Dec, [facility] [id number] [place] [address] 53173- 9202 Dec, [facility] [address], [place] [address]- 0363 Dec, Squamous cell carcinoma, 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 [facility] [place] [facility] [address] [id number] [place] [address]- 8151 14 Dec, 2014 [facility] [place] [facility] [address] [id number] [place] [address]- 8346 Dec, [facility] [place] [facility] [address] [id number] [place] [address]- 7042 Nov, [facility] [place] [facility] [address] [id number] [place] [address]- 0674 Nov, [facility] [place] [facility] [address] [id number] [place] [address]- 4593 Nov, [facility] [place] [facility] [address] [id number] [place] [address]- 5543 Nov, [facility] [place] [facility] [address] [facility] [id number] [place] [address]- 7507 Nov, [facility] [place] [facility] [address] [facility] [id number], [place] [address]- 9579 Nov, [facility] [place] [facility] [address] [facility] [id number] [place] [address]- 8794 Nov, [facility] [place] [facility] [address] [facility] [id number], [place] [address]- 3232 Nov, [facility] [place] [facility] [address] [facility] [id number], [place] [address]- 2626 Nov, [facility] [place] [facility] [address] [facility] [id number], [place] [address]- 1986 Nov, [facility] [place] [facility] [address] [facility] [id number] [place] [address]- 0043 Nov, [facility] [place] [facility] [address] [facility] [id number], [place] [address]- 5446 Nov, [facility] [place] [facility] [address] [facility] [id number], [place] [address]- 6350 Oct, [facility] [place] [facility] [address] [facility] [id number], [place] [address]- 8450 Oct, 2014 [facility] [place] [facility] [address] [id number] [place] [address]- 4746 Oct, 2014 [facility] [place] [facility] [address] [facility] [id number] [place] [address]- 7686 Oct, 2014 [facility] [place] [facility] [address] [facility] [id number] [place] [address]- 9116 Oct, 2014 [facility] [place] [facility] [address] [facility] [id number] [place] [address]- 1055 Oct, 2014 [facility] [place] [facility] [address] [facility] [id number] [place] [address]- 8951 Oct, 2014 [facility] [place] [facility] [id number] [place] [address]- 6117 Oct, 2014 [facility] [place] [facility] [address] [place] [address]- 6155 Oct, [facility] [place] [facility] [address] [facility] [id number], [place] [address]- 5843 Sep, [facility] [place] [facility] [id number] [place] [address]- 1727 Sep, [facility] [place] [facility] [id number], [place] [address]- 9075 Sep, [facility] [place] [facility] [id number], [place] [address]- 6072 Sep, [facility] [place] [facility] [address] [facility] [id number], [place] [address]- 6926 Sep, [facility] [place] [facility] [address] [facility] [id number] [place] [address]- 5345 Sep, [facility] [place] [facility] [address] [facility] [id number] [place] [address]- 1553 Sep, [facility] [place] [facility] [address] [facility] [id number], [place] [address]- 8654 Sep, [facility] [place] [facility] [address] [id number] [place] [address]- 3462 Sep, [facility] [place] [facility] [address] [id number] [place] [address]- 6083 Sep, [facility] [place] [facility] [address] [id number] [place] [address]- 6991 Sep, [facility] [place] [facility] [address] [id number] [place] [address]- 0774 Sep, [facility] [place] [facility] [address] [id number] [place] [address]- 4906 Sep, [facility] [place] [facility] [address] [id number] [place] [address]- 2524 Sep, [facility] [place] [facility] [address] [id number] [place] [address]- 1825 Sep, [facility] [place] [facility] [address] [id number] [place] [address]- 1761 Sep, [facility] [place] [facility] [address] [id number] [place] [address]- 5662 Aug, [facility] [place] [facility] [address] [id number] [place] [address]- 4893 Aug, [facility] [place] [facility] [address] [id number] [place] [address]- 9250 Aug, [facility] [place] [facility] [address] [id number], [place] [address]- 3210 31 Aug, 2014 [facility] [place] [facility] [address] [id number] [place] [address]- 3489 31 Aug, 2014 [facility] [place] [facility] [address] [id number] [place] [address]- 4168 31 Aug, 2014 [facility] [place] [facility] [address] [id number] [place] [address]- 6785 17 Aug, 2014 [facility] [place] [facility] [address] [id number], [place] [address]- 2213 Aug, [facility] [address] [id number] [place] [address]- 9686 Aug, [facility] [address] [id number] [place] [address]- 0656 Aug, [facility] [address] [id number] [place] [address]- 4076 Aug, [facility] [address] [place] [id number] Aug, [facility] [place] [facility] [address] [id number] [place] [address]- 1050 Aug, [facility] [address] [id number] [place] [address]- 7502 Aug, [facility] [address] [id number] [place] [address]- 5912 Aug, [facility] [address] [id number] [place] [address]- 2340 Aug, [facility] [address] [id number] [place] [address]- 0226 Aug, [facility] [address] [id number] [place] [address]- 1549 Aug, [facility] [address] [id number] [place] [address]- 2745 Aug, [facility] [place] [facility] [address] [id number] [place] [address]- 4050 Aug, [facility] [place] [facility] [address] [id number] [place] [address]- 4814 Aug, [facility] [place] [facility] [address] [id number] [place] [address]- 4199 Aug, [facility] [place] [facility] [address] [id number] [place] [address]- 3060 Aug, [facility] [address] [id number] [place] [address]- 9401 Aug, [facility] [place] [facility] [address] [id number] [place] [address]- 3943 Aug, [facility] [place] [facility] [address] [id number] [place] [address]- 2366 Aug, [facility] [place] [facility] [address] [id number] [place] 5278 Aug, [facility] [place] [facility] [address] [id number] [place] [address]- 9220 Aug, [facility] [place] [facility] [address] [id number] [place] [address]- 6437 Aug, [facility] [place] [facility] [address] [id number] [place] [address]- 4023 Aug, [facility] [place] [facility] [address] [id number] [place] [address]- 6095 Jul, [facility] [place] [facility] [address] [id number] [place] [address]- 6005 Jul, [facility] [place] [facility] [address] [id number] [place] [address]- 3190 Jul, [facility] [place] [facility] [address] [facility] [id number] [place] [address]- 6091 Jul, [facility] [place] [facility] [address] [id number] [place] [address]- 3912 Jul, [facility] [place] [facility] [address] [id number] [place] [address]- 5077 Jul, [facility] [place] [facility] [address] [id number] [place] [address]- 3781 Jul, [facility] [place] [facility] [address] [id number] [place] [address]- 3765 Jul, [facility] [place] [facility] [address] [id number] [place] [address]- 4765 Jul, [facility] [place] [facility] [address] [id number] [place] [address]- 8870 Jul, [facility] [place] [facility] [address] [id number] [place] 1091 Jun, [facility] [place] [facility] [address] [id number] [place] 6267 Jun, [facility] [place] [facility] [address] [id number] [place] [address]- 6166 Jun, [facility] [place] [facility] [address] [id number] [place] [address]- 0883 Jun, [facility] [place] [facility] [address] [id number] [place] [address]- 3612 Jun, [facility] [place] [facility] [address] [id number] [place] [address]- 5721 Jun, [facility] [place] [facility] [address] [id number] [place] [address]- 9326 Jun, [facility] [place] [facility] [address] [id number] [place] [address]- 8978 Jun, [facility] [place] [facility] [address] [id number] [place] [address]- 5907 Jun, [facility] [place] [facility] [address] [id number] [place] [address]- 0783 Jun, [facility] [place] [facility] [address] [id number], [place] [address]- 9171 29 May, 2014 [facility] [place] [facility] [address] [id number] [place] [address]- 0671 29 May, 2014 [facility] [place] [facility] [address] [id number] [place] [address]- 9755 May, [facility] [place] [facility] [address] [id number] [place] [address]- 3740 May, [facility] [place] [facility] [address] [id number] [place] [address]- 6854 17 May, 2013 [facility] [place] [facility] [address] [id number] [place] [address] 2546 17 May, 2013 [facility] [place] [facility] [address] [id number] [place] [address] 2546 15 May, 2013 [facility] [place] [facility] [address] [id number] [place] [address] 2546 15 May, 2013 [facility] [place] [facility] [address] [id number] [place] [address] 2546 15 May, 2013 [facility] [place] [facility] [address] [id number] [place] [address]- 2143 15 May, 2013 [facility] [place] [facility] [address] [id number] [place] [address]- 8919 10 May, 2013 [facility] [place] [facility] [address] [id number] [place] [address]- 5570 10 May, 2013 [facility] [place] [facility] [address] [id number] [place] [address]- 8137 09 May, 2013 [facility] [place] [facility] [address] [id number] [place] [address] 2541 09 May, 2013 [facility] [place] [facility] [address] [id number] [place] [address]- 2549 04 May, 2014 [facility] [place] [facility] [address] [id number] [place] [address] 2540 May, 2013 [facility] [place] [facility] [address] [id number] [place] [address]- 6106 Apr, [facility] [place] [facility] [address] [id number] [place] [address]- 2544 Apr, [facility] [place] [facility] [address] [id number] [place] [address]- 2248 Apr, [facility] [place] [facility] [address] [id number] [place] [address]- 5640 Apr, [facility] [place] [facility] [address] [id number] [place] [address]- 9550 Apr, [facility] [place] [facility] [address] [id number] [facility] [place] [address]- 5402 Apr, [facility] [place] [facility] [address] [id number] [place] [address] Apr, [facility] [place] [facility] [address] [id number] [place] [address] Apr, [facility] [place] [facility] [address] [id number] [place] [address] Apr, [facility] [place] [facility] [address] [id number] [place] [address] Apr, [facility] [place] [facility] [address] [id number] [place] [address] Apr, [facility] [place] [facility] [address] [id number] [place] [address] Apr, [facility] [place] [facility] [address] [id number] [place] [address] Apr, [facility] [place] [facility] [address] [id number] [place] [address] Apr, [facility] [place] [facility] [address] [id number] [place] [address] Apr, [facility] [place] [facility] [address] [id number] [place] [address] Mar, [facility] [place] [facility] [address] [id number] [place] [address] Mar, [facility] [place] [facility] [address] [id number] [place] [address] Mar, [facility] [place] [facility] [address] [id number] [place] [address] Mar, [facility] [place] [facility] [address] [id number] [place] [address]26 Mar, [facility] [place] [facility] [address] [id number] [place] [address] Mar, 2013 [facility] [place] [facility] [address] [id number] [place] [address] Mar, 2013 [facility] [place] [facility] [address] [id number] [place] [address]- [address] Mar, 2013 [facility] [place] [facility] [address] [id number] [place] [address] 230[address] Mar, 2013 [facility] [place] [facility] [address] [id number] [place] [address] Mar, 2013 [facility] [place] [facility] [address] [id number] [place] [address] Mar, 2013 [facility] [place] [facility] [address] [id number] [place] [address]- [address] Mar, 2013 [facility] [place] [facility] [address] [id number] [place] [address]- [address] Mar, 2013 [facility] [place] [facility] [address] [id number] [place] [address]- [address]128 Mar, 2013 [facility] [place] [facility] [address] [id number] [place] [address]- 2020 Mar, 2013 [facility] [place] [facility] [address] [id number] [place] [address]- 5795 Mar, 2013 [facility] [place] [facility] [address] [id number] [place] [address] 8490 Mar, [facility] [place] [facility] [address] [id number] [place] [address] 98[address] Mar, [facility] [place] [facility] [address] [id number] [place] [address]85 Feb, [facility] [place] [facility] [address] [id number] [place] [address]- [address] Feb, [facility] [place] [facility] [address] [id number] [place] [address] Feb, [facility] [place] [facility] [address] [id number] [place] [address]- 8787 Feb, [facility] [place] [facility] [address] [id number] [place] [address] Feb, [facility] [place] [facility] [address] [id number] [place] [address]- 2488 Feb, [facility] [place] [facility] [address] [id number] [place] [address] Feb, [facility] [place] [facility] [address] [id number] [place] [address] 6[address] Feb, [facility] [place] [facility] [address] [id number] [place] [address]- 8966 Feb, [facility] [place] [facility] [address] [id number] [place] [address]- [address]106 Feb, [facility] [place] [facility] [address] [id number] [place] [address] 6[address] Feb, [facility] [place] [facility] [address] [id number] [place] [address] Feb, [facility] [place] [facility] [address] [id number] [place] [address] Feb, [facility] [place] [facility] [address] [id number] [place] [address]- [address] Feb, [facility] [place] [facility] [address] [id number] [place] [address] January, [facility] [place] [facility] [address] [id number] [place] [address] 1534 January, [facility] [place] [facility] [address] [id number] [place] [address]- 2434 January, [facility] [place] [facility] [address] [id number] [place] [address]- 4[address] January, [facility] [place] [facility] [address] [id number] [place] [address]- 30[address] January, [facility] [place] [facility] [address] [id number] [place] [address]- 7685 January, [facility] [place] [facility] [address] [id number] [place] [address]- 14[address] January, [facility] [place] [facility] [address] [id number] [place] [address]- [address] January, [facility] [place] [facility] [address] [id number] [place] [address] January, [facility] [place] [facility] [address] [id number] [place] [address]- 2596 January, [facility] [place] [facility] [address] [id number] [place] [address] January, [facility] [place] [facility] [address] [id number] [place] [address]- 3465 January, [facility] [place] [facility] [address] [id number] [place] [address] January, [facility] [place] [facility] [address] [id number] [place] [address] January, [facility] [place] [facility] [address] [id number] [place] [address] 1581 Dec, [facility] [place] [facility] [address] [id number] [place] [address]- 0146 Dec, [facility] [place] [facility] [address] [id number] [place] [address] 9701 Dec, [facility] [place] [facility] [address] [id number] [place] [address]- 6828 Dec, [facility] [place] [facility] [address] [id number] [place] [address] 2505 Dec, [facility] [place] [facility] [address] [id number] [place] [address]- 0218 Dec, [facility] [place] [facility] [address] [id number] [place] [address]- 6466 Dec, [facility] [place] [facility] [address] [id number] [place] [address]- 2871 Dec, [facility] [place] [facility] [address] [id number] [place] [address]- 3300 Dec, [facility] [place] [facility] [address] [id number] [place] [address]- 6760 Dec, [facility] [place] [facility] [address] [id number] [place] [address]- 9261 Nov, [facility] [place] [facility] [address] [id number] [place] [address]- 8282 Nov, [facility] [place] [facility] [address] [id number] [place] [address]- 0278 Nov, [facility] [place] [facility] [address] [id number] [place] [address]- 8554 Nov, [facility] [place] [facility] [address] [id number] [place] [address]- 1491 Nov, [facility] [place] [facility] [address] [id number] [place] [address]- 5357 Nov, [facility] [place] [facility] [address] [id number] [place] [address]- 9082 Nov, [facility] [place] [facility] [address] [id number], [place] [address] 1349 Nov, [facility] [place] [facility] [address] [id number] [place] [address]- 0957 Nov, [facility] [place] [facility] [address] [id number] [place] [address]- 4836 Nov, [facility] [place] [facility] [address] [id number] [place] [address]- 6655 Oct, [facility] [place] [facility] [address] [id number] [place] [address]- 2921 Oct, [facility] [place] [facility] [address] [id number] [place] [address]- 6374 Oct, [facility] [place] [facility] [address] [id number] [place] [address]- 8476 Oct, [facility] [place] [facility] [address] [id number] [place] [address]- 5856 Oct, [facility] [place] [facility] [address] [id number] [place] [address]- 4153 Oct, [facility] [place] [facility] [address] [id number] [place] [address]- 6230 Oct, [facility] [place] [facility] [address] [facility] [id number] [place] [address]- 8897 Oct, [facility] [place] [facility] [address] [id number] [place] [address]- 6080 Oct, [facility] [place] [facility] [address] [id number] [place] [address]- 1721 Oct, [facility] [place] [facility] [address] [facility] [id number] [place] [address]- 6632 Oct, [facility] [place] [facility] [address] [facility] [id number], [place] [address]- 1492 Oct, [facility] [place] [facility] [address] [id number], [place] [address] 9927 Oct, [facility] [place] [facility] [address] [id number] [place] [address]- 3770 Oct, [facility] [place] [facility] [address] [id number], [place] [address] 2105 Sep, [facility] [place] [facility] [address] [facility] [id number], [place] [address]- 5361 Sep, [facility] [place] [facility] [address] [id number], [place] [address]- 4186 15 Sep, 2013 [facility] [address] [id number] [place] [address]- 8490 15 Sep, 2013 [facility] [place] [facility] [address] [id number] [place] [address]- 0694 14 Sep, 2013 [facility] [place] [facility] [address] [id number] [place] [address]- 5695 14 Sep, 2013 [facility] [place] [facility] [address] [id number] [place] [address]- 0971 14 Sep, 2013 [facility] [place] [facility] [address] [id number] [place] [address]- 9454 Sep, [facility] [place] [facility] [address] [id number] [place] [address]- 6969 08 Sep, 2013 [facility] [place] [facility] [address] [id number] [place] [address]- 4240 Sep, [facility] [place] [facility] [address] [id number] [place] [address]- 7377 Aug, [facility] [place] [facility] [address] [id number] [place] [address]- 0417 Aug, [facility] [place] [facility] [address] [id number] [place] [address]- 0736 Jul, [facility] [place] [facility] [address] [id number] [place] [address]- 4579 Jul, [facility] [place] [facility] [address] [id number] [place] [address]- 4031 Jul, [facility] [place] [facility] [address] [id number] [place] [address]- 7736 Jul, [facility] [place] [facility] [address] [id number] [place] [address]- 0571 Jul, [facility] [place] [facility] [address] [id number] [place] [address]- 0332 Jul, [facility] [place] [facility] [address] [id number] [place] [address]- 6965 12 Jul, 2013 [facility] [place] [facility] [address] [id number] [place] [address]- 2638 Jul, [facility] [place] [facility] [address] [id number] [place] [address]- 6328 Jul, [facility] [place] [facility] [address] [id number] [place] [address]- 4362 08 Jul, 2013 [facility] [place] [facility] [address] [id number] [place] [address]- 7670 Jul, [facility] [place] [facility] [address] [id number] [place] [address]- 6376 Jul, [facility] [place] [facility] [address] [id number] [place] [address]- 1996 Jul, [facility] [place] [facility] [address] [id number] [place] [address]- 4138 Jul, [facility] [place] [facility] [address] [id number] [place] [address]- 5519 Jul, [facility] [place] [facility] [address] [id number] [place] [address]- 1975 Jul, [facility] [place] [facility] [address] [facility] [id number] [place] [address]- 9023 Jul, [facility] [place] [facility] [address] [id number] [place] [address]- 1089 Jul, [facility] [place] [facility] [address] [id number] [place] [address]- 4323 Jul, [facility] [place] [facility] [address] [id number] [place] [address]- 9139 Jun, [facility] [place] [facility] [address] [id number] [place] [address]- 7256 Jun, [facility] [place] [facility] [address] [id number] [place] [address]- 6724 Jun, 2012 [facility] [place] [facility] [address] [id number] [place] [address]- 5181 16 Jun, 2012 [facility] [place] [facility] [address] [id number] [place] [address]- 3110 16 Jun, 2012 [facility] [place] [facility] [address] [id number] [place] [address]- 4084 16 Jun, 2012 [facility] [place] [facility] [address] [id number] [place] [address]- 1420 10 Jun, 2012 [facility] [place] [facility] [address] [id number] [place] [address]- 2970 10 Jun, 2013 [facility] [place] [facility] [address] [id number] [place] [address]- 6787 09 Jun, 2013 [facility] [place] [facility] [address] [id number] [place] [address]- 7709 Jun, [facility] [place] [facility] [address] [id number], [place] [address]- 1823 Jun, [facility] [place] [facility] [address] [id number], [place] [address]- 6999 26 May, 2012 [facility] [place] [facility] [address] [id number], [place] [address]- 8629 25 Sep, 2012 [facility] [place] [facility] [address] [id number], [place] [address]- 3176 19 Sep, 2012 [facility] [place] [facility] [address] [id number], [place] [address]- 5522 17 Sep, 2012 [facility] [place] [facility] [address] [id number], [place] [address]- 9010 11 Sep, 2012 [facility] [place] [facility] [address] [id number], [place] [address]- 7111 10 May, 2012 [facility] [place] [facility] [address] [id number], [place] [address]- 5773 09 May, 2012 [facility] [place] [facility] [address] [id number] [place] [address]- 5533 May, [facility] [address] [id number] [place] [address]- 5610 Apr, [facility] [place] [facility] [address] [id number] [place] [address]- 4970 Apr, [facility] [place] [facility] [address] [id number] [place] [address]- 2402 Apr, [facility] [place] [facility] [address] [id number] [place] [address]- 1419 Apr, [facility] [place] [facility] [address] [id number] [place] [address]- 1447 Apr, [facility] [place] [facility] [address] [id number] [place] [address]- 2554 Mar, [facility] [place] [facility] [address] [id number] [place] [address]- 1724 Mar, [facility] [place] [facility] [address] [id number] [place] [address]- 8945 Mar, [facility] [place] [facility] [address] [id number] [place] [address]- 1596 Mar, [facility] [place] [facility] [address] [id number] [place] [address]- 2003 Mar, [facility] [place] [facility] [address] [id number] [place] [address]- 0388 Mar, [facility] [place] [facility] [address] [id number] [place] [address]- 0450 Mar, [facility] [place] [facility] [address] [id number] [place] [address]- 5054 Mar, [facility] [place] [facility] [address] [id number] [place] [address]- 3386 Feb, [facility] [place] [facility] [address] [id number] [place] [address]- 9434 Feb, [facility] [place] [facility] [address] [id number] [place] [address]- 0777 January, [facility] [address] [id number] [place] [address]- 3178 January, [facility] [place] [facility] [address] [id number] [place] [address]- 5930 Dec, [facility] [place] [facility] [address] [id number] [place] [address]- 3041 Dec, [facility] [address] [id number] [place] [address]- 6086 Nov, [facility] [place] [facility] [address] [id number] [place] [address]- 8026 Nov, [facility] [address] [id number] [place] [address]- 1440 Nov, [facility] [place] [facility] [address] [id number] [place] [address]- 9952 Nov, [facility] [address] [id number] [place] [address]- 8870 Oct, [facility] [place] [facility] [address] [id number] [place] [address]- 1985 Oct, [facility] [place] [facility] [address] [id number] [place] [address]- 7777 Oct, [facility] [place] [facility] [address] [id number] [place] [address]- 1250 Oct, [facility] [place] [facility] [address] [id number] [place] [address]- 4363 Oct, [facility] [place] [facility] [address] [id number] [place] [address]- 0208 14 Oct, 2012 [facility] [place] [facility] [address] [id number] [place] [address]- 5251 Oct, [facility] [place] [facility] [address] [id number] [place] [address]- 3883 07 Oct, 2012 [facility] [address] [id number] [place] [address]- 0012 03 Oct, 2012 [facility] [address] [id number] [place] [address]- 3360 30 Sep, 2012 [facility] [address] [id number] [place] [address]- 7829 Sep, [facility] [place] [facility] [address] [id number] [place] [address]- 2035 Sep, [facility] [address] [id number] [place] [address]- 4837 Sep, [facility] [address] [id number] [place] [address]- 9783 17 Sep, 2012 [facility] [address] [id number] [place] [address]- 2712 Sep, [facility] [address] [id number] [place] [address]- 0185 Sep, [facility] [address] [id number] [place] [address]- 0097 Sep, [facility] [address] [facility] [id number] [place] [address]- 5141 Aug, [facility] [address] [id number] [place] [address]- 1758 Aug, [facility] [place] [facility] [address] [id number] [place] [address]- 2544 Aug, [facility] [place] [facility] [address] [id number] [place] [address]- 0562 Aug, [facility] [place] [facility] [address] [id number] [place] [address]- 2255 Aug, [facility] [address] [id number] [place] [address]- 5187 Aug, [facility] [place] [facility] [address] [id number] [place] [address]- 5009 Aug, [facility] [place] [facility] [address] [id number] [place] [address]- 8631 Aug, [facility] [place] [facility] [address] [id number] [place] [address]- 1817 Jul, [facility] [place] [facility] [address] [id number] [place] [address], [place] [address]- 6424 Jul, [facility] [place] [facility] [address] [id number] [place] [address]- 7317 Jul, [facility] [place] [facility] [address] [id number] [place] [address], [place] [address]- 8727 Jul, [facility] [place] [facility] [address] [id number] [place] [address]- 6445 Jul, [facility] [place] [facility] [address] [id number] [place] [address], [place] [address]- 4088 Jul, [facility] [place] [facility] [address] [id number] [place] [address]- 7846 Jun, [facility] [place] [facility] [address] [id number] [place] [address]- 1983 Jun, [facility] [place] [facility] [address] [id number] [place] [address]- 8246 Jun, [facility] [place] [facility] [address] [id number], [place] [address]- 3583 Jun, [facility] [place] [facility] [address] [id number] [place] [address]- 5763 Jun, [facility] [place] [facility] [address] [id number] [place] [address]- 2137 Jun, [facility] [place] [facility] [address] [id number] [place] [address]- 1641 Jun, [facility] [place] [facility] [address] [id number], [place] [address]- 0287 Jun, [facility] [place] [facility] [address] [id number] [place] [address]- 6252 Jun, [facility] [place] [facility] [address] [id number] [place] [address]- 4026 26 May, 2012 [facility] [place] [facility] [address] [id number] [place] [address]- 7686 24 May, 2012 [facility] [place] [facility] [address] [id number] [place] [address]- 6621 May, [facility] [place] [facility] [address] [id number] [place] [address]- 5200 Apr, [facility] [place] [facility] [address] [id number] [place] [address]- 3150 Apr, [facility] [place] [facility] [address] [id number] [place] [address]- 8191 Apr, [facility] [place] [facility] [address] [id number] [place] [address]- 7407 Apr, [facility] [place] [facility] [address] [id number] [place] [address]- 3880 Apr, [facility] [place] [facility] [address] [id number] [place] [address]- 3751 Apr, [facility] [place] [facility] [address] [id number] [place] [address]- 4062 Mar, [facility] [place] [facility] [address] [id number] [place] [address]- 6459 Mar, [facility] [place] [facility] [address] [id number] [place] [address]- 0775 Mar, [facility] [place] [facility] [address] [id number] [place] [address]- 1388 Mar, [facility] [place] [facility] [address] [id number] [place] [address]- 4614 Feb, [facility] [place] [facility] [address] [id number] [place] [address]- 9406 Feb, [facility] [address] [id number] [place] [address]- 6601 Feb, [facility] [address] [id number] [place] [address]- 2457 Feb, [facility] [address] [id number] [place] [address]- 2854 Feb, [facility] [address] [id number] [place] [address]- 3342 January, [facility] [address] [id number] [place] [address]- 8401 January, [facility] [address] [id number] [place] [address]- 5460 January, [facility] [address] [id number] [place] [address]- 0625 January, [facility] [address] [id number] [place] [address]- 1447 January, [facility] [address] [id number] [place] [address]- 7059 January, [facility] [address] [id number] [place] [address]- 0909 Dec, [facility] [address] [id number] [place] [address]- 9414 Dec, [facility] [address] [id number] [place] [address]- 9587 Dec, [facility] [place] [facility] [address] [id number] [place] [address]- 1911 Dec, [facility] [address] [id number] [place] [address]- 0376 Dec, [facility] [address] [id number] [place] [address]- 7640 Nov, [facility] [address] [id number] [place] [address]- 2762 14 Nov, 2011 [facility] [place] [facility] [address] [id number] [place] [address]- 8725 12 Nov, 2011 [facility] [place] [facility] [address] [id number] [place] [address]- 5086 07 Nov, 2011 [facility] [place] [facility] [address] [id number] [place] [address]- 1276 29 Oct, 2011 [facility] [place] [facility] [address] [id number] [place] [address]- 1657 28 Oct, 2011 [facility] [place] [facility] [address] [id number] [place] [address]- 6587 24 Oct, 2011 [facility] [place] [facility] [address] [id number] [place] [address]- 1701 13 Oct, 2011 [facility] [place] [facility] [address] [id number] [place] [address]- 1212 08 Oct, 2011 [facility] [place] [facility] [address] [id number] [place] [address]- 8558 Sep, [facility] [place] [facility] [address] [id number] [place] [address]- 7427 Sep, [facility] [place] [facility] [address] [id number] [place] [address]- 6816 Sep, [facility] [place] [facility] [address] [id number] [place] [address]- 2650 Sep, [facility] [place] [facility] [address] [id number] [place] [address] Sep, [facility] [place] [facility] [address] [id number] [place] [address] Sep, [facility] [place] [facility] [address] [id number] [place] [address] Aug, [facility] [place] [facility] [address] [id number] [place] [address] Aug, [facility] [place] [facility] [address] [id number] [place] [address] Aug, [facility] [place] [facility] [address] [id number] [place] [address] Jul, [facility] [place] [facility] [address] [id number] [place] [address] Jul, [facility] [place] [facility] [address] [id number] [place] [address] Jul, [facility] [place] [facility] [address] [id number] [place] [address] Jul, [facility] [place] [facility] [address] [id number] [place] [address] Jun, [facility] [place] [facility] [address] [id number] [place] [address] Jun, [facility] [place] [facility] [address] [id number] [place] [address] Jun, [facility] [place] [facility] [address] [id number] [place] [address] Jun, [facility] [place] [facility] [address] [facility] [id number] [place] [address] Jun, [facility] [place] [facility] [address] [id number] [place] [address] Jun, [facility] [place] [facility] [address] [id number] [place] [address] Mar, [facility] [place] [facility] [address] [id number] [place] [address] Dec, [facility] [place] [facility] [address] [id number] [place] [address] Dec, [facility] [place] [facility] [address] [id number] [place] [address] Nov, [facility] [place] [facility] [address] [id number] [place] [address] 16 Nov, 2010 [facility] [address] [id number] [place] [address] 10 Sep, 2010 [facility] [address] [id number] [place] [address] 31 Aug, 2010 [facility] [address] [id number] [place] [address] Aug, [facility] [address] [id number] [place] [address] 29 Aug, 2010 [facility] [address] [id number] [place] [address] Aug, [facility] [address] [id number] [place] [address] Aug, [facility] [address] [id number] [place] [address] 14 Aug, 2010 [facility] [address] [id number] [place] [address] Aug, [facility] [address] [id number] [place] [address] Aug, [facility] [address] [id number] [place] [address] Aug, [facility] [address] [id number] [place] [address] Aug[facility] [address] [id number] [place] [address] 14[address] Aug, [facility] [place] [facility] [address] [id number] [place] [address] Aug, [facility] [address] [id number] [place] [address] 30 Jul, 2010 [facility] [address] [id number], [place] [address] Jul, [facility] [place] [facility] [address] [id number] [place] [address] 30 Jul, 2010 [facility] [place] [facility] [address] [id number] [place] [address] Jul, [facility] [place] [facility] [address] [id number] [place] [address] Jul, [facility] [place] [facility] [address] [id number] [place] [address] 25[address] Jul, [facility] [place] [facility] [address] [id number] [place] [address] 24 Jun, 2010 [facility] [place] [facility] [address] [id number] [place] [address] 74[address] Jun, [facility] [place] [facility] [address] [id number] [place] [address] Jun, [facility] [place] [facility] [address] [id number] [place] [address] Jun, [facility] [place] [facility] [address] [id number], [place] [address] 16 Apr, 2010 [facility] [place] [facility] [address] [id number] [place] [address] 269[address] Mar, [facility] [place] [facility] [address] [id number], [place] [address] Feb, [facility] [place] [facility] [address] [id number], [place] [address] January, [facility] [place] [facility] [address] [id number] [place] [address] 15 Dec, 2009 [facility] [place] [facility] [address] [id number] [place] [address] Nov, [facility] [place] [facility] [address] [id number] [place] [address] 31 Aug, 2009 [facility] [place] [facility] [address] [id number] [place] [address] 47[address] Aug, [facility] [address] [id number] [place] [address] 35[address] Aug, [facility] [place] [facility] [address] [id number] [place] [address] Jul, [facility] [address] [id number] [place] [address] 69[address] Jul, [facility] [place] [facility] [address] [id number] [place] [address]700 Jul, [facility] [address] [id number] [place] [address] 7[address] Jun, [facility] [address] [facility] [id number] [place] [address] 5[address] Jun, [facility] [address] [facility] [id number] [place] [address]- 0810 Jun, [facility] [address] [id number], [place] [address] Jun, [facility] [address] [facility] [id number] [place] [address] 6084 Jun, [facility] [address] [facility] [id number], [place] [address] Jun, [facility] [place] [facility] [address] [facility] [id number], [place] [address] Apr, [facility] [address] [id number], [place] [address] Apr, [facility] [place] [facility] [address] [facility] [id number], [place] [address] Feb, [facility] [place] [facility] [address] [facility] [id number], [place] [address] January, [facility] [address] [id number], [place] [address] Dec, IMMUNIZATIONS No Known Immunizations SOCIAL HISTORY Never Assessed REASON FOR VISIT referral PLAN OF CARE VITAL SIGNS MEDICATIONS Unknown [...] Surgical History colonoscopy 2009 ([facility]), 2013 ([place]) Surgical History heart cath: CAD [...] inability to urinate 09/16/[address] [facility] early Hospitalization History hyperkalemia 10/2017 Hospitalization History fluid in lung
--- OUTSIDE RECORDS SUMMARY | 2018-08-08 14:11 | XMS REPORT ---
Author Author NOEMI WASHBURN Organization [facility] Address [address] [place] [address] Care Team Providers Care Sole Polisher Name Role Phone NOEMI WASHBURN Unavailable PROBLEMS Type Condition ICD9-CM Code FWK37-CS Code Onset Dates Condition Status SNOMED Code Problem Chronic lymphocytic leukemia C91.10 Active 45589190 Problem Lymphocytosis D72.820 Active 52301807 Problem Eye exam abnormal R93.8 Active 577529421 Problem Eustachian tube dysfunction, unspecified laterality H69.80 Active 85038290 Problem Essential hypertension I10 Active 76700055 Problem Dysuria R30.0 Active 75628667 Problem Diabetic polyneuropathy associated with type 2 diabetes mellitus E11.42 Active 73222691 Problem Cough R05 Active 84644986 Problem Polyneuropathy associated with underlying disease G63 Active 641300471 Problem Retinal edema H35.81 Active 8919422 Problem Bilateral primary osteoarthritis of knee M17.0 Active 544225283 Problem Primary osteoarthritis of right knee M17.11 Active [id number] Problem Pure hypercholesterolemia E78.00 Active 739779219 Problem DM neuro manif type II E11.49 Active 25602193 Problem Benign prostatic hyperplasia with lower urinary tract symptoms, unspecified morphology N40.1 Active 256403274 Problem Hypokalemia E87.6 Active 49509869 Problem 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 Active 524238137 Problem Anemia of chronic illness D63.8 Active 642583561 Problem Bipolar disorder, in partial remission, most recent episode depressed F31.75 Active 42458885 Problem Falling R29.6 Active 892757331 Problem Leukocytosis D72.829 Active 031500462 Problem Reactive airway disease J45.909 Active 646618638718 Problem Diabetes E11.9 Active 08146669 Problem Chronic pain G89.29 Active 65615642 Problem Anxiety F41.9 Active 32947016 Problem Morbid obesity E66.01 Active 770128767 Problem Bipolar I disorder, most recent episode (or current) mixed, moderate F31.62 Active 60927977 Problem Insomnia, unspecified type G47.00 Active 197057616 ALLERGIES No Information ENCOUNTERS Encounter Location Date Diagnosis [facility] [id number] [place] [address] 18509- 6426 Jun, [facility] [id number] [place] [address] 61441- 2101 Apr, Chronic pain G89.29 [facility] [address] 80345- 2960 Apr, Primary osteoarthritis of right knee M17.11 [facility] [address] 79228- 1959 Mar, [facility] [id number] [place] [address] 52861- 6896 Mar, BMI 50.0-59.9, adult Z68.43 and Bipolar disorder, in partial remission, most recent episode depressed F31.75 [facility] [id number] [place] [address] 11105- 2528 Mar, Diabetes E11.9 ; Pure hypercholesterolemia E78.00 ; Essential hypertension I10 ; Nausea with vomiting, unspecified R11.2 and Headache, unspecified headache type R51 [facility] [id number] [place] [address] 04343- 0274 Mar, Bipolar I disorder, most recent episode (or current) mixed, moderate F31.62 [facility] [id number] [place] [address] 43734- 3823 Mar, Bipolar I disorder, most recent episode (or current) mixed, moderate F31.62 [facility] [id number] [place] [address] 28983- 4202 Mar, Chronic pain G89.29 [facility] [id number] [place] [address] 73215- 7724 Mar, Bipolar I disorder, most recent episode (or current) mixed, moderate F31.62 [facility] [address], [place] [address] 4981 18 Feb, 2018 Bipolar I disorder, most recent episode (or current) mixed, moderate F31.62 [facility] [id number] [place] [address] 72865- 3499 14 Feb, 2018 Chronic pain G89.29 [facility] [id number] [place] [address] 90139- 7720 06 Feb, 2018 Decubitus ulcer of right foot, stage 3 L89.893 and BMI 50.0- 59.9, adult Z68.43 [facility] [id number] [place] [address] 86863- 2125 Feb, Bipolar I disorder, most recent episode (or current) mixed, moderate F31.62 [facility] [id number] [place] [address] 87598- 0673 Feb, [facility] [id number] [place] [address] 50894- 7341 January, [facility] [id number] [place] [address] 35487- 7152 January, Chronic pain G89.29 [facility] [id number] [place] [address] 34719- 8609 January, Bipolar I disorder, most recent episode (or current) mixed, moderate F31.62 [facility] [id number] [place] [address] 79996- 3093 January, Bipolar I disorder, most recent episode (or current) mixed, moderate F31.62 [facility] [id number] [place] [address] 51392- 3429 Dec, Bipolar I disorder, most recent episode (or current) mixed, moderate F31.62 and BMI 50.0-59.9, adult Z68.43 [facility] [id number] [place] [address] 08944- 3267 Dec, Bipolar I disorder, most recent episode (or current) mixed, moderate F31.62 [facility] [id number] [place] [address] 60513- 2314 Dec, Chronic pain G89.29 [facility] [id number] [place] [address] 42704- 0205 Dec, DM neuro manif type II E11.49 ; Right flank pain R10.9 ; 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 ; Encounter for medication monitoring Z51.81 and BMI 50.0-59.9, adult Z68.43 [facility] [id number] [place] [address] 53799- 5775 Dec, Bipolar I disorder, most recent episode (or current) mixed, moderate F31.62 [facility] [id number] [place] [address] 82475- 3129 Nov, Bipolar I disorder, most recent episode (or current) mixed, moderate F31.62 [facility] [id number] [place] [address] 74950- 6690 Nov, Chronic pain G89.29 [facility] [id number] [place] [address] 86413- 6173 Nov, Bipolar I disorder, most recent episode (or current) mixed, moderate F31.62 [facility] [id number] [place] [address] 86857- 7134 Nov, Hypokalemia E87.6 [facility] [id number] [place] [address] 91949- 5911 Nov, Bipolar I disorder, most recent episode (or current) mixed, moderate F31.62 [facility] [id number] [place] [address] 38211- 6479 Oct, Chronic pain G89.29 [facility] [id number] [place] [address] 27132- 3366 Oct, BMI 50.0-59.9, adult Z68.43 and Bipolar I disorder, most recent episode (or current) mixed, moderate F31.62 [facility] [address] 45478- 8159 Oct, Bipolar I disorder, most recent episode (or current) mixed, moderate F31.62 [facility] [address] 03409- 6126 Oct, [facility] [address] 74187- 7586 Oct, Hypokalemia E87.6 [facility] [address] 81559- 7959 Oct, DM neuro manif type II E11.49 [facility] [address] 63617- 2031 Oct, Bipolar I disorder, most recent episode (or current) mixed, moderate F31.62 [facility] [id number] [place] [address] 92646- 8800 Oct, Bipolar I disorder, most recent episode (or current) mixed, moderate F31.62 [facility] [id number] [place] [address] 34693- 8363 14 Oct, 2017 Hyperkalemia E87.5 ; Falling R29.6 ; BMI 50.0-59.9, adult Z68.43 and Acute left ankle pain M25.572 [facility] [id number] [place] [address] 92013- 1973 Oct, DM neuro manif type II E11.49 [facility] [address] 44964- 7407 Oct, [facility] [id number] [place] [address] 93713- 7947 Sep, Chronic pain G89.29 [facility] [address] 30902- 3037 Sep, [facility] [id number] [place] [address] 44852- 9404 Sep, Bilateral primary osteoarthritis of knee M17.0 [facility] [id number] [place] [address] 57946- 2760 Sep, Generalized edema R60.1 [facility] [id number] [place] [address] 51984- 0904 Sep, Bipolar I disorder, most recent episode (or current) mixed, moderate F31.62 [facility] [id number] [place] [address] 73530- 4456 15 Sep, 2017 Hypoxia R09.02 ; Other hypervolemia E87.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 ; Anemia of chronic illness D63.8 and BMI 50.0- 59.9, adult Z68.43 [facility] [id number] [place] [address] 15772- 8070 Sep, [facility] [id number] [place] [address] 05600- 8471 Sep, Bipolar I disorder, most recent episode (or current) mixed, moderate F31.62 [facility] [id number] [place] [address] 70536- 2326 Aug, Chronic pain G89.29 [facility] [id number] [place] [address] 49419- 4296 Aug, Generalized edema R60.1 [facility] [id number] [place] [address] 13796- 7502 Aug, [facility] [id number] [place] [address] 86954- 4450 Aug, [facility] [id number] [place] [address] 12399- 5784 Aug, Bipolar I disorder, most recent episode (or current) mixed, moderate F31.62 [facility] [id number] [place] [address] 53660- 0590 Aug, Bipolar I disorder, most recent episode (or current) mixed, moderate F31.62 [facility] [id number] [place] [address] 14941- 1866 Aug, Chronic pain G89.29 [facility] [id number] [place] [address] 762301- 0044 Jul, Bipolar I disorder, most recent episode (or current) mixed, moderate F31.62 [facility] [id number] [place] [address] 389464- 8209 Jul, Bipolar I disorder, most recent episode (or current) mixed, moderate F31.62 and BMI 60.0-69.9, adult Z68.44 [facility] [id number] [place] [address] 573150- 8280 Jul, Bipolar I disorder, most recent episode (or current) mixed, moderate F31.62 [facility] [id number] [place] [address] 10099- 2144 Jul, Chronic pain G89.29 [facility] [id number] [place] [address] 75405- 9647 Jul, Bipolar I disorder, most recent episode (or current) mixed, moderate F31.62 [facility] [id number] [place] [address] 24428- 2973 Jun, Polyneuropathy associated with underlying disease G63 and Diabetes E11.9 [facility] [address] 30436- 0279 Jun, Bipolar I disorder, most recent episode (or current) mixed, moderate F31.62 [facility] [id number] [place] [address] 91020- 8732 Jun, Chronic pain G89.29 [facility] [address], [place] [address]- 5820 27 May, 2017 Bipolar I disorder, most recent episode (or current) mixed, moderate F31.62 [facility] [id number] [place] [address] 280449- 4055 21 May, 2017 Bipolar I disorder, most recent episode (or current) mixed, moderate F31.62 [facility] [id number] [place] [address] 30914- 3793 20 May, 2017 Diabetic polyneuropathy associated with type 2 diabetes mellitus E11.42 [facility] [address] [place] [address] 78260- 3091 18 May, 2017 Bipolar I disorder, most recent episode (or current) mixed, moderate F31.62 [facility] [id number] [place] [address] 82609- 8264 13 May, 2017 Bipolar I disorder, most recent episode (or current) mixed, moderate F31.62 [facility] [address] [place] [address] 77103- 2542 May, Chronic pain G89.29 [facility] [id number] [place] [address] 34930- 0124 Apr, Bipolar I disorder, most recent episode (or current) mixed, moderate F31.62 [facility] [address] [place] [address] 31736- 3321 Apr, [facility] [id number] [place] [address] 64872- 9203 Apr, Chronic pain G89.29 and DM neuro manif type II E11.49 [facility] [id number] [place] [address] 25073- 7114 Apr, [facility] [id number] [place] [address] 05210- 5560 Apr, Bipolar I disorder, most recent episode (or current) mixed, moderate F31.62 [facility] [id number] [address]- 6844 Apr, Chronic pain G89.29 [facility] [id number] [place] [address] 77607- 9071 Apr, Iliotibial band syndrome, left M76.32 [facility] [address] [place] [address] 81575- 5958 Apr, Bipolar I disorder, most recent episode (or current) mixed, moderate F31.62 [facility] [id number] [place] [address] 22506- 3978 Mar, Bipolar I disorder, most recent episode (or current) mixed, moderate F31.62 [facility] [id number] [place] [address] 97582- 7979 Mar, Bipolar I disorder, most recent episode (or current) mixed, moderate F31.62 [facility] [id number] [place] [address] 47985- 7925 Mar, [facility] [id number] [place] [address] 39982- 0387 Mar, Bipolar I disorder, most recent episode (or current) mixed, moderate F31.62 [facility] [address] [place] [address] 87884- 6173 Mar, Chronic pain G89.29 [facility] [address] [place] [address] 29378- 5792 Mar, Bipolar I disorder, most recent episode (or current) mixed, moderate F31.62 [facility] [address], [place] [address]- 5400 Mar, Bipolar I disorder, most recent episode (or current) mixed, moderate F31.62 [facility] [address], [place] [address]- 1965 Mar, Acute pain of left knee M25.562 ; Left hip pain M25.552 ; Generalized edema R60.1 and Tongue swelling R22.0 [facility] [id number] [place] [address] 46524- 8423 Mar, [facility] [id number] [place] [address] 62372- 3006 Feb, Chronic pain G89.29 [facility] [id number] [place] [address] 88041- 0696 Feb, Diabetes E11.9 [facility] [id number] [place] [address] 67546- 6034 January, Chronic pain G89.29 [facility] [id number] [place] [address] 75181- 1485 January, [facility] [id number] [place] [address] 86165- 2023 January, Bipolar I disorder, most recent episode (or current) mixed, moderate F31.62 [facility] [id number] [place] [address] 52956- 7585 Dec, Bipolar I disorder, most recent episode (or current) mixed, moderate F31.62 [facility] [id number] [place] [address] 74540- 6934 Dec, Chronic pain G89.29 [facility] [id number] [place] [address] 80755- 2182 Dec, Bipolar I disorder, most recent episode (or current) mixed, moderate F31.62 [facility] [address] [place] [address] 56107- 7463 Dec, Diabetes E11.9 ; Essential hypertension I10 ; Chronic pain G89.29 and Morbid obesity E66.01 [facility] [id number] [place] [address] 23155- 0308 Dec, [facility] [id number] [place] [address] 53115- 1017 Dec, Bipolar I disorder, most recent episode (or current) mixed, moderate F31.62 [facility] [address], [place] [address]- 7376 Dec, Bipolar I disorder, most recent episode (or current) mixed, moderate F31.62 [facility] [address], [place] [address] 2546 Nov, Chronic pain G89.29 [facility] [address] [place] [address] 51227 2546 Nov, Bipolar I disorder, most recent episode (or current) mixed, moderate F31.62 [facility] [address] [place] [address] 69058- 7706 Nov, [facility] [id number] [place] [address] 30795- 8856 Nov, Bipolar I disorder, most recent episode (or current) mixed, moderate F31.62 [facility] [address] [place] [address] 91109- 6366 Nov, Bipolar I disorder, most recent episode (or current) mixed, moderate F31.62 [facility] [address] [place] [address] 02949- 2996 Nov, [facility] [address], [place] [address]- 0316 Nov, [facility] [address], [place] [address]- 5216 Nov, [facility] [address], [place] [address] 2546 Oct, Chronic pain G89.29 [facility] [address], [place] [address]- 7256 Oct, Bipolar I disorder, most recent episode (or current) mixed, moderate F31.62 [facility] [address], [place] [address]- 2026 Oct, [facility] [address], [place] [address]- 7654 15 Oct, 2016 Chronic pain G89.29 ; Diabetes E11.9 ; Anxiety F41.9 and 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 [facility] [address] [place] [address] 11190- 4026 10 Oct, 2016 [facility] [id number] [place] [address] 21673- 5056 06 Oct, 2016 Diabetes E11.9 [facility] [id number] [place] [address] 68887 2544 Oct, Bipolar I disorder, most recent episode (or current) mixed, moderate F31.62 [facility] [id number] [place] [address] 94436- 8143 Sep, Chronic pain G89.29 [facility] [id number] [place] [address] 22777- 6811 Sep, Chronic pain G89.29 [facility] [id number] [place] [address] 09147- 0413 Aug, Chronic pain G89.29 [facility] [address] [place] [address] 11443 2546 Jul, [facility] [address] [place] [address] 13796- 9847 Jul, Diabetes E11.9 [facility] [address] [place] [address] 39121 254 Jul, Chronic pain G89.29 [facility] [id number] [place] [address] 24841- 6165 Jul, Bipolar I disorder, most recent episode (or current) mixed, moderate F31.62 [facility] [address], [place] [address]- 3983 Jun, Bipolar I disorder, most recent episode (or current) mixed, moderate F31.62 [facility] [address] [place] [address] 19958- 6482 Jun, [facility] [address] 13113- 2594 Jun, Bipolar I disorder, most recent episode (or current) mixed, moderate F31.62 [facility] [id number] [place] [address] 06726- 8085 May, Insomnia, unspecified type G47.00 [facility] [id number] [place] [address] 42431- 3125 May, Bipolar I disorder, most recent episode (or current) mixed, moderate F31.62 [facility] [id number] [place] [address] 50855- 7330 May, [facility] [id number] [place] [address] 85863- 4264 May, Bipolar I disorder, most recent episode (or current) mixed, moderate F31.62 [facility] [id number] [place] [address] 55847- 8547 May, Diabetes E11.9 and Essential hypertension I10 [facility] [id number] [place] [address] 20007- 9587 Apr, Chronic pain G89.29 [facility] [id number] [place] [address] 10442- 4406 Apr, Bipolar I disorder, most recent episode (or current) mixed, moderate F31.62 [facility] [id number] [place] [address] 15387- 1003 Apr, [facility] [address] 08640- 4115 Apr, [facility] [id number] [place] [address] 00935- 5293 Mar, Chronic pain G89.29 ; Headache, unspecified headache type R51 ; Neuropathy G62.9 ; Pain of right hip joint M25.551 and Essential hypertension I10 [facility] [id number] [place] [address] 83408- 5848 Mar, Chronic pain G89.29 [facility] [id number] [place] [address] 65905- 7962 Mar, Bipolar I disorder, most recent episode (or current) mixed, moderate F31.62 [facility] [id number] [place] [address] 79194- 6366 Feb, Bipolar I disorder, most recent episode (or current) mixed, moderate F31.62 and Insomnia, unspecified type G47.00 [facility] [id number] [place] [address] 63067- 1266 Feb, Chronic pain G89.29 [facility] [id number] [place] [address] 96496- 7612 Feb, Bipolar I disorder, most recent episode (or current) mixed, moderate F31.62 [facility] [id number] [place] [address] 15462- 0665 January, Bipolar I disorder, most recent episode (or current) mixed, moderate F31.62 [place] [id number] [place] [address] 88153- 4089 January, Chronic pain G89.29 [facility] [id number] [place] [address] 97496- 7619 January, Chronic pain G89.29 and Essential hypertension I10 [facility] [id number] [place] [address] 24605- 1597 January, Bipolar I disorder, most recent episode (or current) mixed, moderate F31.62 [facility] [id number] [place] [address] 55940- 5477 Dec, [place] [id number] [place] [address] 31732- 1322 Dec, [place] [id number] [place] [address] 14191- 7381 Dec, [facility] [id number] [place] [address] 88384- 2206 Dec, [facility] [id number] [place] [address] 84528- 7499 Nov, Reactive airway disease J45.909 [facility] [address] 95892- 9358 Nov, [facility] [id number] [place] [address] 40852- 9115 Nov, [facility] [id number] [place] [address] 80436- 3996 Nov, [facility] [address] 50107- 6699 Nov, [facility] [facility] [id number] [place] [address] 78716- 3378 Nov, Onychomycosis B35.1 ; Hammertoe M20.40 ; [place] or callus L84 and DM neuro manif type II E11.49 [facility] [id number] [place] [address] 34747- 5963 Nov, Chronic pain G89.29 ; Leukocytosis D72.829 and Diabetes E11.9 [facility] [id number] [place] [address] 40132- 0750 Nov, [facility] [id number] [place] [address] 99616- 6424 Oct, Bronchitis J40 [facility] [id number] [place] [address] 80968- 4641 Oct, [facility] [id number] [place] [address] 60214- 9564 Oct, [facility] [id number] [place] [address] 22336- 7689 Oct, Mastoiditis, unspecified laterality H70.90 and Type 2 diabetes mellitus with complication E11.8 [facility] [id number] [place] [address] 35973- 1612 Sep, [facility] [id number] [place] [address] 16805- 3341 Sep, Dysuria R30.0 ; Cough R05 ; Benign prostatic hyperplasia with lower urinary tract symptoms, unspecified morphology N40.1 ; Hypokalemia E87.6 and Eustachian tube dysfunction, unspecified laterality H69.80 [facility] [id number] [place] [address] 53215- 2545 Sep, Moderate mixed bipolar I disorder F31.62 [facility] [address] 33915- 3971 Sep, Hypokalemia E87.6 [facility] [address] 14648- 1858 Sep, [facility] [id number] [place] [address] 26138- 7247 Sep, Upper respiratory tract infection, unspecified type J06.9 [facility] [id number] [place] [address] 66648- 9499 Aug, [facility] [id number] [place] [address] 87331- 0839 Aug, Dysuria R30.0 [facility] [id number] [place] [address] 64362- 3361 Aug, [facility] [id number] [place] [address] 77776- 5082 Jul, [facility] [id number] [place] [address] 47275- 2336 Jul, [facility] [id number] [place] [address] 36371- 3348 Jul, [facility] [address] [id number] [address]- 8905 Jul, [facility] [id number] [place] [address] 47990- 7486 Jun, [facility] [address] [address]- 1702 Jun, [facility] [id number] [place] [address] 57020- 8186 Jun, [facility] [id number] [place] [address] 88066- 0674 May, [facility] [id number] [place] [address] 30537- 9072 May, Bipolar I disorder, most recent episode (or current) mixed, moderate 296.62 [facility] [id number] [place] [address] 96340- 8408 16 May, 2015 [facility] [id number] [place] [address] 50099- 6725 May, Bipolar I disorder, most recent episode (or current) mixed, moderate 296.62 and Major depressive disorder, recurrent episode, severe, specified as with psychotic behavior 296.34 [facility] [address] [address]- 8066 May, Bipolar I disorder, most recent episode (or current) mixed, moderate 296.62 [facility] [address], [place] [address]- 3940 May, [facility] [address], [place] [address]- 8698 Apr, [facility] [id number] [place] [address] 39931- 5037 Apr, [facility] [address], [place] [address]- 2056 Apr, Unspecified disorder of kidney and ureter 593.9 and Diabetes mellitus type 2, uncontrolled 250.02 [facility] [address], [place] [address]- 7851 Apr, [facility] [id number] [place] [address] 95110- 5965 Apr, [facility] [id number] [place] [address] 28138- 3490 Apr, [facility] [id number] [place] [address] 23993- 0282 Apr, [facility] [id number] [place] [address] 17242- 6106 Apr, Diabetes mellitus type II, uncontrolled 250.02 [facility] [id number] [place] [address] 35107- 8186 Apr, [facility] [id number] [place] [address] 89692- 1324 Mar, [facility] [id number] [place] [address] 01245- 1214 Mar, [facility] [id number] [place] [address] 52389- 4793 Mar, [facility] [id number] [address]- 7706 Mar, Major depressive disorder, recurrent episode, severe, specified as with psychotic behavior 296.34 and Bipolar I disorder, most recent episode (or current) mixed, moderate 296.62 [facility] [id number] [place] [address] 72198- 6934 Mar, Diabetes 250.00 ; Anuria 788.5 ; Nausea and vomiting 787.01 and Diarrhea 787.91 [facility] [id number] [place] [address] 50198- 6274 Mar, Diabetes 250.00 [facility] [id number] [place] [address] 19332- 7172 Mar, [facility] [address], [place] [address]- 9469 Mar, Diabetes 250.00 [facility] [id number] [place] [address] 19955- 3741 Mar, [facility] [id number] [place] [address] 40571- 4207 Mar, [facility] [id number] [place] [address] 06630- 1182 Mar, [facility] [id number] [place] [address] 13759- 0361 Mar, [facility] [id number] [place] [address] 08698- 0246 Mar, Bipolar I disorder, most recent episode (or current) mixed, moderate 296.62 and Major depressive disorder, recurrent episode, severe, specified as with psychotic behavior 296.34 [facility] [id number] [place] [address] 54338- 5947 Mar, Magnesium deficiency 275.2 ; Hypokalemia 276.8 ; Nausea & vomiting 787.01 and Diabetes mellitus type 2, uncontrolled 250.02 [facility] [id number] [place] [address] 34889- 7693 Feb, [facility] [id number] [place] [address] 85469- 1900 Feb, Bipolar I disorder, most recent episode (or current) mixed, moderate 296.62 [facility] [id number] [place] [address] 28356- 6073 Feb, Nausea and vomiting 787.01 ; Left elbow pain 719.42 ; Anuria 788.5 and Diabetes 250.00 [facility] [id number] [place] [address] 50098- 4249 Feb, [facility] [id number] [place] [address] 84764- 7293 Feb, Hypopotassemia 276.8 and Hypokalemia 276.8 [facility] [address], [place] [address]- 1461 Feb, Hypopotassemia 276.8 and Hypokalemia 276.8 [facility] [id number] [place] [address] 80083- 6114 Feb, Seborrheic keratoses 702.19 [facility] [id number] [place] [address] 97868- 3627 Feb, Hypopotassemia 276.8 and Low magnesium levels 275.2 [facility] [id number] [place] [address] 35217- 9495 January, [facility] [id number] [place] [address] 38541- 6439 January, [facility] [id number] [place] [address] 04783- 9342 January, [facility] [id number] [place] [address] 40383- 3868 January, Scalp lesion 709.9 [facility] [id number] [place] [address] 17774- 9942 January, [facility] [id number] [place] [address] 55712- 5454 Dec, Tear of medial cartilage or meniscus of knee, current 836.0 and 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 [facility] [address] [address]- 6312 Dec, [facility] [id number] [place] [address] 77995- 4248 Dec, [facility] [id number] [place] [address] 74576- 3310 Dec, Squamous cell carcinoma, 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 [facility] [id number] [place] [address] 90878- 6688 14 Dec, 2014 [facility] [place] [facility] [address] [id number] [place] [address]- 9948 13 Dec, 2014 [facility] [place] [facility] [address] [id number] [place] [address]- 7873 Nov, [facility] [place] [facility] [address] [id number] [place] [address]- 1300 Nov, [facility] [place] [facility] [address] [id number] [place] [address]- 2787 Nov, [facility] [place] [facility] [address] [id number] [place] [address]- 2036 Nov, [facility] [place] [facility] [address] [id number] [place] [address]- 3692 Nov, [facility] [place] [facility] [address] [id number] [place] [address]- 8422 Nov, [facility] [place] [facility] [address] [id number] [place] [address]- 3761 Nov, [facility] [place] [facility] [address] [id number] [place] [address]- 3880 Nov, [facility] [place] [facility] [address] [id number] [place] [address]- 0092 Nov, [facility] [place] [facility] [address] [id number] [place] [address]- 6296 Nov, [facility] [place] [facility] [address] [id number], [place] [address]- 3854 Nov, [facility] [place] [facility] [address] [id number] [place] [address]- 7039 Nov, [facility] [place] [facility] [address] [id number] [place] [address]- 2806 Oct, [facility] [place] [facility] [address] [id number] [place] [address]- 2736 Oct, [facility] [place] [facility] [address] [id number] [place] [address]- 7629 Oct, 2014 [facility] [place] [facility] [address] [id number] [place] [address]- 1097 Oct, 2014 [facility] [place] [facility] [address] [id number] [place] 0726 Oct, 2014 [facility] [place] [facility] [address] [id number] [place] [address]- 5565 Oct, 2014 [facility] [place] [facility] [address] [id number] [place] [address]- 9515 Oct, 2014 [facility] [place] [facility] [address] [id number] [place] [address]- 4171 Oct, 2014 [facility] [place] [facility] [address] [id number] [place] [address]- 1643 Oct, 2014 [facility] [place] [facility] [id number] [place] [address]- 7962 Sep, [facility] [place] [facility] [address] [id number] [place] [address]- 5922 Sep, [facility] [place] [facility] [id number] [place] [address]- 1043 Sep, [facility] [place] [facility] [address] [facility] [id number] [place] [address]- 8037 Sep, [facility] [place] [facility] [address] [facility] [id number] [place] [address]- 7273 Sep, [facility] [place] [facility] [address] [id number], [place] [address]- 1199 Sep, [facility] [place] [facility] [address] [id number] [place] [address]- 2983 Sep, [facility] [place] [facility] [address] [id number] [place] [address]- 3152 Sep, [facility] [place] [facility] [address] [id number], [place] [address]- 1501 Sep, [facility] [place] [facility] [address] [id number] [place] [address]- 1969 14 Sep, 2014 [facility] [place] [facility] [address] [id number] [place] [address]- 4517 Sep, [facility] [place] [facility] [address] [id number] [place] [address]- 3394 Sep, [facility] [place] [facility] [address] [id number] [place] [address]- 3591 Sep, [facility] [place] [facility] [address] [id number] [place] 2150 Sep, [facility] [place] [facility] [address] [id number] [place] [address]- 3542 Sep, [facility] [place] [facility] [address] [id number] [place] [address]- 2157 Sep, [facility] [place] [facility] [address] [id number] [place] [address]- 8565 Aug, [facility] [place] [facility] [address] [id number] [place] [address]- 8953 31 Aug, 2014 [facility] [place] [facility] [address] [id number] [place] [address]- 8615 31 Aug, 2014 [facility] [place] [facility] [address] [id number] [place] [address]- 0551 31 Aug, 2014 [facility] [place] [facility] [address] [id number] [place] [address]- 1521 31 Aug, 2014 [facility] [place] [facility] [address] [id number] [place] [address]- 2613 31 Aug, 2014 [facility] [place] [facility] [address] [id number] [place] [address]- 7176 17 Aug, 2014 [facility] [place] [facility] [address] [id number] [place] [address]- 2373 17 Aug, 2014 [facility] [place] [facility] [address] [id number], [place] [address]- 5808 Aug, [facility] [address] [id number] [place] [address]- 7966 Aug, [facility] [address] [id number] [place] [address]- 0800 Aug, [facility] [address] [place] [id number] Aug, [facility] [address] [id number] [place] [address]- 0076 Aug, [facility] [address] [id number] [place] [address]- 8897 Aug, [facility] [address] [id number] [place] [address]- 8383 Aug, [facility] [address] [id number] [place] [address]- 9120 Aug, [facility] [address] [id number] [place] [address]- 3501 Aug, [facility] [address] [id number] [place] [address]- 5841 Aug, [facility] [place] [facility] [address] [id number] [place] [address]- 3847 Aug, [facility] [place] [facility] [address] [id number] [place] [address]- 3070 Aug, [facility] [place] [facility] [address] [id number] [place] [address]- 3139 Aug, [facility] [place] [facility] [address] [id number] [place] [address]- 1532 Aug, [facility] [place] [facility] [address] [id number] [place] [address]- 8935 Aug, [facility] [place] [facility] [address] [id number] [place] [address]- 5871 Aug, [facility] [place] [facility] [address] [id number] [place] [address]- 2085 Aug, [facility] [place] [facility] [address] [id number] [place] [address]- 6257 Aug, [facility] [place] [facility] [address] [id number] [place] [address]- 4623 Aug, [facility] [place] [facility] [address] [id number] [place] 3916 Aug, [facility] [place] [facility] [address] [id number] [place] [address]- 2020 Aug, [facility] [place] [facility] [address] [id number] [place] [address]- 2398 Aug, [facility] [place] [facility] [address] [id number] [place] [address]- 2309 Jul, [facility] [place] [facility] [address] [id number] [place] [address]- 1650 Jul, [facility] [place] [facility] [address] [id number] [place] [address]- 9558 Jul, [facility] [place] [facility] [address] [id number] [place] [address]- 8706 Jul, [facility] [place] [facility] [address] [facility] [id number] [place] [address]- 4252 Jul, [facility] [place] [facility] [address] [id number] [place] [address]- 5835 Jul, [facility] [place] [facility] [address] [id number] [place] [address]- 4483 Jul, [facility] [place] [facility] [address] [id number] [place] [address]- 3224 Jul, [facility] [place] [facility] [address] [id number] [place] [address]- 2777 Jul, [facility] [place] [facility] [address] [id number] [place] [address]- 8512 Jul, [facility] [place] [facility] [address] [id number] [place] [address]- 6836 Jun, [facility] [place] [facility] [address] [id number] [place] [address]- 2648 Jun, [facility] [place] [facility] [address] [id number] [place] 7570 Jun, [facility] [place] [facility] [address] [id number] [place] [address]- 7113 Jun, [facility] [place] [facility] [address] [id number] [place] [address]- 4619 Jun, [facility] [place] [facility] [address] [id number] [place] [address]- 5362 Jun, [facility] [place] [facility] [address] [id number] [place] [address]- 1823 Jun, [facility] [place] [facility] [address] [id number] [place] [address]- 1961 Jun, [facility] [place] [facility] [address] [id number] [place] [address]- 5279 Jun, [facility] [place] [facility] [address] [id number] [place] [address]- 8683 Jun, [facility] [place] [facility] [address] [id number] [place] [address]- 5325 29 May, 2014 [facility] [place] [facility] [address] [id number] [place] [address]- 8235 29 May, 2013 [facility] [place] [facility] [address] [id number] [place] [address]- 1386 26 May, 2014 [facility] [place] [facility] [address] [id number] [place] [address]- 5195 26 May, 2013 [facility] [place] [facility] [address] [id number] [place] [address]- 1772 17 May, 2013 [facility] [place] [facility] [address] [id number] [place] [address]- 6169 17 May, 2013 [facility] [place] [facility] [address] [id number] [place] [address] 2546 15 May, 2013 [facility] [place] [facility] [address] [id number] [place] [address] 2546 15 May, 2013 [facility] [place] [facility] [address] [id number] [place] [address] 2546 15 May, 2013 [facility] [place] [facility] [address] [id number] [place] [address] 2548 15 May, 2013 [facility] [place] [facility] [address] [id number] [place] [address]- 5499 10 May, 2013 [facility] [place] [facility] [address] [id number] [place] [address]- 0761 10 May, 2013 [facility] [place] [facility] [address] [id number] [place] [address]- 5084 09 May, 2013 [facility] [place] [facility] [address] [id number] [place] [address]- 1475 09 May, 2013 [facility] [place] [facility] [address] [id number] [place] [address]- 6569 04 May, 2014 [facility] [place] [facility] [address] [id number] [place] [address]- 3752 04 May, 2014 [facility] [place] [facility] [address] [id number] [place] [address]- 0791 Apr, [facility] [place] [facility] [address] [id number] [place] [address]- 9871 Apr, [facility] [place] [facility] [address] [id number] [place] [address]- 6995 Apr, [facility] [place] [facility] [address] [id number] [place] [address]- 0432 Apr, [facility] [place] [facility] [address] [id number] [place] [address]- 7295 Apr, [facility] [place] [facility] [address] [id number] [place] [address]- 0029 Apr, [facility] [place] [facility] [address] [id number] [place] [address]- 7160 Apr, [facility] [place] [facility] [address] [id number] [place] [address]- 2046 Apr, [facility] [place] [facility] [address] [id number] [place] [address]- 8135 Apr, [facility] [place] [facility] [address] [id number] [place] [address]- 7714 Apr, [facility] [place] [facility] [address] [id number] [place] [address]- 1659 Apr, [facility] [place] [facility] [address] [id number] [place] [address]- 3314 Apr, [facility] [place] [facility] [address] [id number] [place] [address]- 2474 Apr, [facility] [place] [facility] [address] [id number] [place] [address] Apr, [facility] [place] [facility] [address] [id number] [place] [address] Apr, [facility] [place] [facility] [address] [id number] [place] [address] Mar, [facility] [place] [facility] [address] [id number] [place] [address] Mar, [facility] [place] [facility] [address] [id number] [place] [address] Mar, [facility] [place] [facility] [address] [id number] [place] [address]- [address] Mar, [facility] [place] [facility] [address] [id number] [place] [address] Mar, [facility] [place] [facility] [address] [id number] [place] [address] Mar, [facility] [place] [facility] [address] [id number] [place] [address] Mar, 2013 [facility] [place] [facility] [address] [id number] [place] [address] Mar, 2013 [facility] [place] [facility] [address] [id number] [place] [address]- [address]27 Mar, 2013 [facility] [place] [facility] [address] [id number] [place] [address]- [address] Mar, 2013 [facility] [place] [facility] [address] [id number] [place] [address]- [address] Mar, 2013 [facility] [place] [facility] [address] [id number] [place] [address]- [address] Mar, 2013 [facility] [place] [facility] [address] [id number] [place] [address]- [address] Mar, 2013 [facility] [place] [facility] [address] [id number] [place] [address]- [address] Mar, 2013 [facility] [place] [facility] [address] [id number] [place] [address]- [address] Mar, 2013 [facility] [place] [facility] [address] [id number] [place] [address]- 16[address] Mar, 2013 [facility] [place] [facility] [address] [id number] [place] [address]- [address] Mar, 2013 [facility] [place] [facility] [address] [id number] [place] [address]- 9066 Mar, [facility] [place] [facility] [address] [id number] [place] [address]- 87[address] Feb, [facility] [place] [facility] [address] [id number] [place] [address]- [address] Feb, [facility] [place] [facility] [address] [id number] [place] [address]- [address] Feb, [facility] [place] [facility] [address] [id number] [place] [address]- [address] 16 Feb, 2014 [facility] [place] [facility] [address] [id number] [place] [address]- [address] Feb, [facility] [place] [facility] [address] [id number] [place] [address]- [address] Feb, [facility] [place] [facility] [address] [id number] [place] [address]- [address] Feb, [facility] [place] [facility] [address] [id number] [place] [address]- [address] Feb, [facility] [place] [facility] [address] [id number] [place] [address]- [address] Feb, [facility] [place] [facility] [address] [id number] [place] [address]- [address] Feb, [facility] [place] [facility] [address] [id number] [place] [address] Feb, [facility] [place] [facility] [address] [id number] [place] [address]- [address] Feb, [facility] [place] [facility] [address] [id number] [place] [address]- 8672 Feb, [facility] [place] [facility] [address] [id number] [place] [address]- [address] Feb, [facility] [place] [facility] [address] [id number] [place] [address]- [address] January, [facility] [place] [facility] [address] [id number] [place] [address]- 27[address] January, [facility] [place] [facility] [address] [id number] [place] [address]- [address] January, [facility] [place] [facility] [address] [id number] [place] [address]- 18[address] January, [facility] [place] [facility] [address] [id number] [place] [address]- 29[address] January, [facility] [place] [facility] [address] [id number] [place] [address] January, [facility] [place] [facility] [address] [id number] [place] [address]- 12[address] January, [facility] [place] [facility] [address] [id number] [place] [address]- [address] January, [facility] [place] [facility] [address] [id number] [place] [address]- 4813 January, [facility] [place] [facility] [address] [id number] [place] [address]- [address] January, [facility] [place] [facility] [address] [id number] [place] [address] January, [facility] [place] [facility] [address] [id number] [place] [address]- [address] January, [facility] [place] [facility] [address] [id number] [place] [address]- 56[address] January, [facility] [place] [facility] [address] [id number] [place] [address]- 47[address] January, [facility] [place] [facility] [address] [id number] [place] [address]- 1998 Dec, [facility] [place] [facility] [address] [id number] [place] [address]- 9226 Dec, [facility] [place] [facility] [address] [id number] [place] [address]- [address] Dec, [facility] [place] [facility] [address] [address] [id number] [place] [address] Dec, [facility] [place] [facility] [address] [id number] [place] [address] Dec, [facility] [place] [facility] [address] [id number] [place] [address] 7588 Dec, [facility] [place] [facility] [address] [id number] [place] [address]- 2190 Dec, [facility] [place] [facility] [address] [id number] [place] [address]- 6690 Dec, [facility] [place] [facility] [address] [id number] [place] [address]- 9551 Dec, [facility] [place] [facility] [address] [id number] [place] [address]- 7006 Dec, [facility] [place] [facility] [address] [id number] [place] [address] 3974 Nov, [facility] [place] [facility] [address] [id number] [place] [address]- 7014 Nov, [facility] [place] [facility] [address] [id number] [place] [address]- 2814 Nov, [facility] [place] [facility] [address] [id number] [place] [address]- 9762 Nov, [facility] [place] [facility] [address] [id number] [place] [address]- 5726 Nov, [facility] [place] [facility] [address] [id number] [place] [address]- 6393 Nov, [facility] [place] [facility] [address] [id number] [place] [address]- 9938 Nov, [facility] [place] [facility] [address] [id number] [place] [address]- 1526 Nov, [facility] [place] [facility] [address] [id number], [place] [address] 26[address] Nov, [facility] [place] [facility] [address] [id number] [place] [address]- 6133 Nov, [facility] [place] [facility] [address] [id number] [place] [address]- 1170 Oct, [facility] [place] [facility] [address] [id number] [place] [address]- 3647 Oct, [facility] [place] [facility] [address] [id number] [place] [address]- 4560 Oct, [facility] [place] [facility] [address] [id number] [place] [address]- 1446 Oct, [facility] [place] [facility] [address] [id number] [place] [address]- 5456 Oct, [facility] [place] [facility] [address] [id number] [place] [address]- 1486 Oct, [facility] [place] [facility] [address] [id number] [place] [address]- 1829 Oct, [facility] [place] [facility] [address] [id number] [place] [address]- 0946 Oct, [facility] [place] [facility] [address] [facility] [id number] [place] [address]- 4101 Oct, [facility] [place] [facility] [address] [id number] [place] [address]- 5662 Oct, [facility] [place] [facility] [address] [facility] [id number] [place] [address]- 2343 Oct, [facility] [place] [facility] [address] [facility] [id number] [place] [address]- 5829 Oct, [facility] [place] [facility] [address] [facility] [id number] [place] [address]- 2349 Oct, [facility] [place] [facility] [address] [id number], [place] [address] 9686 Oct, [facility] [place] [facility] [address] [id number] [place] [address]- 4996 Sep, [facility] [place] [facility] [address] [id number] [place] [address]- 3136 Sep, [facility] [place] [facility] [address] [facility] [id number], [place] [address] 8039 Sep, [facility] [place] [facility] [address] [id number], [place] [address]- 8616 15 Sep, 2013 [facility] [address] [id number] [place] [address]- 0031 14 Sep, 2013 [facility] [place] [facility] [address] [id number] [place] [address]- 1441 14 Sep, 2013 [facility] [place] [facility] [address] [id number] [place] [address]- 6971 14 Sep, 2013 [facility] [place] [facility] [address] [id number] [place] [address]- 8440 14 Sep, 2013 [facility] [place] [facility] [address] [id number] [place] [address]- 4139 Sep, [facility] [place] [facility] [address] [id number] [place] [address]- 8175 Sep, [facility] [address] [id number] [place] [address]- 8483 Aug, [facility] [place] [facility] [address] [id number] [place] [address]- 4624 Aug, [facility] [place] [facility] [address] [id number] [place] [address]- 2952 Jul, [facility] [place] [facility] [address] [id number] [place] [address]- 6371 Jul, [facility] [place] [facility] [address] [id number], [place] [address]- 5954 Jul, [facility] [place] [facility] [address] [id number] [place] [address]- 6508 Jul, [facility] [place] [facility] [address] [id number] [place] [address]- 2805 Jul, [facility] [place] [facility] [address] [id number] [place] [address]- 7524 Jul, [facility] [place] [facility] [address] [id number] [place] [address]- 5660 Jul, [facility] [place] [facility] [address] [id number] [place] [address]- 5234 12 Jul, 2012 [facility] [place] [facility] [address] [id number] [place] [address]- 4716 Jul, [facility] [place] [facility] [address] [id number] [place] [address]- 4296 Jul, [facility] [place] [facility] [address] [id number] [place] [address]- 3930 Jul, [facility] [place] [facility] [address] [id number] [place] [address]- 5053 Jul, 2012 [facility] [place] [facility] [address] [id number] [place] [address]- 4258 Jul, [facility] [place] [facility] [address] [id number] [place] [address]- 2301 Jul, [facility] [place] [facility] [address] [id number] [place] [address]- 3610 Jul, [facility] [place] [facility] [address] [id number] [place] [address]- 6201 Jul, [facility] [place] [facility] [address] [id number] [place] [address]- 5366 Jul, [facility] [place] [facility] [address] [facility] [id number] [place] [address]- 9228 Jul, [facility] [place] [facility] [address] [id number] [place] [address]- 5742 Jul, [facility] [place] [facility] [address] [id number] [place] [address]- 2948 Jun, [facility] [place] [facility] [address] [id number] [place] [address]- 8883 Jun, [facility] [place] [facility] [address] [id number] [place] [address]- 2318 Jun, [facility] [place] [facility] [address] [id number] [place] [address]- 2671 16 Jun, 2013 [facility] [place] [facility] [address] [id number] [place] [address]- 1384 16 Jun, 2012 [facility] [place] [facility] [address] [id number] [place] [address]- 4913 16 Jun, 2013 [facility] [place] [facility] [address] [id number] [place] [address]- 3444 10 Jun, 2013 [facility] [place] [facility] [address] [id number] [place] [address]- 2067 10 Jun, 2013 [facility] [place] [facility] [address] [id number] [place] [address]- 5564 Jun, [facility] [place] [facility] [address] [id number] [place] [address]- 5166 Jun, [facility] [place] [facility] [address] [id number] [place] [address]- 7971 Jun, [facility] [place] [facility] [address] [id number], [place] [address]- 3674 26 Sep, 2012 [facility] [place] [facility] [address] [id number] [place] [address]- 9848 25 Sep, 2012 [facility] [place] [facility] [address] [id number], [place] [address]- 0460 19 Sep, 2012 [facility] [place] [facility] [address] [id number], [place] [address]- 2545 17 Sep, 2012 [facility] [place] [facility] [address] [id number], [place] [address]- 6271 11 Sep, 2012 [facility] [place] [facility] [address] [id number] [place] [address]- 6337 10 Sep, 2012 [facility] [place] [facility] [address] [id number], [place] [address]- 1699 09 Sep, 2012 [facility] [place] [facility] [address] [id number], [place] [address]- 2400 05 Sep, 2012 [facility] [place] [facility] [address] [id number] [place] [address]- 3151 Apr, [facility] [address] [id number] [place] [address]- 1059 Apr, [facility] [place] [facility] [address] [id number] [place] [address]- 3561 Apr, [facility] [place] [facility] [address] [id number] [place] [address]- 9603 Apr, [facility] [place] [facility] [address] [id number] [place] [address]- 8938 Apr, [facility] [place] [facility] [address] [id number] [place] [address]- 5020 Mar, [facility] [place] [facility] [address] [id number] [place] [address]- 6414 Mar, [facility] [place] [facility] [address] [id number] [place] [address]- 8233 Mar, [facility] [place] [facility] [address] [id number] [place] [address]- 4512 Mar, [facility] [place] [facility] [address] [id number] [place] [address]- 2606 Mar, [facility] [place] [facility] [address] [id number] [place] [address]- 0411 Mar, [facility] [place] [facility] [address] [id number] [place] [address]- 8299 Mar, [facility] [place] [facility] [address] [id number] [place] [address]- 9983 Mar, [facility] [place] [facility] [address] [id number] [place] [address]- 8909 Feb, [facility] [place] [facility] [address] [id number] [place] [address]- 8999 Feb, [facility] [place] [facility] [address] [id number] [place] [address]- 2212 January, [facility] [place] [facility] [address] [id number] [place] [address]- 3793 January, [facility] [address] [id number] [place] [address]- 0738 Dec, [facility] [place] [facility] [address] [id number] [place] [address]- 4415 Dec, [facility] [address] [id number] [place] [address]- 9594 Nov, [facility] [address] [id number] [place] [address]- 7123 Nov, [facility] [place] [facility] [address] [id number] [place] [address]- 5065 Nov, [facility] [address] [id number] [place] [address]- 0731 Nov, [facility] [address] [id number] [place] [address]- 9425 Oct, [facility] [address] [id number] [place] [address]- 4356 Oct, [facility] [address] [id number] [place] [address]- 8290 Oct, [facility] [place] [facility] [address] [id number] [place] [address]- 4919 Oct, [facility] [place] [facility] [address] [id number] [place] [address]- 6752 16 Oct, 2012 [facility] [place] [facility] [address] [id number] [place] [address]- 2541 14 Oct, 2012 [facility] [place] [facility] [address] [id number] [place] [address]- 6422 08 Oct, 2012 [facility] [place] [facility] [address] [id number] [place] [address]- 8120 07 Oct, 2012 [facility] [place] [facility] [address] [id number] [place] [address]- 1463 03 Oct, 2012 [facility] [address] [id number] [place] [address]- 1702 30 Sep, 2012 [facility] [address] [id number] [place] [address]- 1237 Sep, [facility] [address] [id number] [place] [address]- 2388 Sep, [facility] [address] [id number] [place] [address]- 9190 Sep, [facility] [address] [id number] [place] [address]- 2655 Sep, [facility] [address] [id number] [place] [address]- 4792 Sep, [facility] [address] [id number] [place] [address]- 0340 Sep, [facility] [address] [id number] [place] [address]- 9328 Sep, [facility] [address] [id number] [place] [address]- 6704 31 Aug, 2012 [facility] [address] [id number] [place] [address]- 4456 31 Aug, 2012 [facility] [address] [id number] [place] [address]- 2353 28 Aug, 2012 [facility] [address] [id number] [place] [address]- 2543 28 Aug, 2012 [facility] [place] [facility] [address] [id number] [place] [address]- 6400 Aug, [facility] [place] [facility] [address] [id number] [place]674 Aug, [facility] [address] [id number] [place] [address]- 5871 Aug, [facility] [place] [facility] [address] [id number] [place] [address]- 6177 Aug, [facility] [place] [facility] [address] [id number] [place] [address]- 3462 Jul, [facility] [place] [facility] [address] [id number] [place] [address]- 8494 Jul, [facility] [place] [facility] [address] [id number] [place] [address], [place] [address]- 0234 Jul, [facility] [place] [facility] [address] [id number] [place] [address]- 1319 Jul, [facility] [place] [facility] [address] [id number] [place] [address]- 7721 Jul, [facility] [place] [facility] [address] [id number] [place] [address]- 8265 Jul, [facility] [place] [facility] [address] [id number] [place] [address]- 3890 Jun, [facility] [place] [facility] [address] [id number] [place] [address]- 1378 Jun, [facility] [place] [facility] [address] [id number] [place] [address]- 2164 Jun, [facility] [place] [facility] [address] [id number] [place] [address]- 2795 Jun, [facility] [place] [facility] [address] [id number], [place] [address]- 0203 Jun, [facility] [place] [facility] [address] [id number] [place] [address]- 4427 Jun, [facility] [place] [facility] [address] [id number] [place] [address]- 7642 Jun, [facility] [place] [facility] [address] [id number], [place] [address]- 7865 Jun, [facility] [place] [facility] [address] [id number], [place] [address]- 3173 Jun, [facility] [place] [facility] [address] [id number] [place] [address]- 2039 26 May, 2012 [facility] [place] [facility] [address] [id number] [place] 0866 24 May, 2012 [facility] [place] [facility] [address] [id number] [place] [address]- 4526 May, [facility] [place] [facility] [address] [id number] [place] [address]- 4472 Apr, [facility] [place] [facility] [address] [id number] [place] [address]- 2071 Apr, [facility] [place] [facility] [address] [id number] [place] [address]- 7726 Apr, [facility] [place] [facility] [address] [id number] [place] [address]- 0934 Apr, [facility] [place] [facility] [address] [id number] [place] [address]- 6727 Apr, [facility] [place] [facility] [address] [id number] [place] [address]- 6781 Apr, [facility] [place] [facility] [address] [id number] [place] [address]- 9278 Mar, [facility] [place] [facility] [address] [id number] [place] [address]- 4839 Mar, [facility] [place] [facility] [address] [id number] [place] [address]- 8506 Mar, [facility] [place] [facility] [address] [id number] [place] [address]- 4586 Mar, [facility] [place] [facility] [address] [id number] [place] [address]- 1146 Feb, [facility] [place] [facility] [address] [id number] [place] [address]- 3463 Feb, [facility] [place] [facility] [address] [id number] [place] [address]- 8921 Feb, [facility] [address] [id number] [place] [address]- 3401 Feb, [facility] [address] [id number] [place] [address]- 9176 Feb, [facility] [address] [id number] [place] [address]- 2947 January, [facility] [address] [id number] [place] [address]- 7855 January, [facility] [address] [id number] [place] [address]- 6571 January, [facility] [address] [id number] [place] [address]- 5565 January, [facility] [address] [id number] [place] [address]- 2070 January, [facility] [address] [id number] [place] [address]- 7722 January, [facility] [address] [id number] [place] [address]- 0219 Dec, [facility] [address] [id number] [place] [address]- 9306 Dec, [facility] [address] [id number] [place] [address]- 8973 Dec, [facility] [address] [id number] [place] [address]- 6505 Dec, [facility] [place] [facility] [address] [id number] [place] [address]- 3058 Dec, [facility] [address] [id number] [place] [address]- 4726 Nov, [facility] [address] [id number] [place] [address]- 3065 Nov, [facility] [address] [id number] [place] [address]- 8535 Nov, [facility] [place] [facility] [address] [id number] [place] [address]- 5286 07 Nov, 2011 [facility] [place] [facility] [address] [id number] [place] [address]- 4246 29 Oct, 2011 [facility] [place] [facility] [address] [id number] [place] [address]- 5420 28 Oct, 2011 [facility] [place] [facility] [address] [id number] [place] [address]- 8042 24 Oct, 2011 [facility] [place] [facility] [address] [id number] [place] [address]- 8766 13 Oct, 2011 [facility] [place] [facility] [address] [id number] [place] [address]- 9756 Oct, [facility] [place] [facility] [address] [id number] [place] [address]- 0266 Sep, [facility] [place] [facility] [address] [id number] [place] [address]- 6389 Sep, [facility] [place] [facility] [address] [id number] [place] [address]- 2042 Sep, [facility] [place] [facility] [address] [id number] [place] [address]- 8104 Sep, [facility] [place] [facility] [address] [id number] [place] [address]- 0366 Sep, [facility] [place] [facility] [address] [id number] [place] [address]- 4717 Sep, [facility] [place] [facility] [address] [id number] [place] [address]- 1917 Aug, [facility] [place] [facility] [address] [id number] [place] [address]- 5448 Aug, [facility] [place] [facility] [address] [id number] [place] [address]- 5685 Aug, [facility] [place] [facility] [address] [id number] [place] [address]- 0516 Jul, [facility] [place] [facility] [address] [id number] [place] [address]- 0868 Jul, [facility] [place] [facility] [address] [id number] [place] [address]- 8090 Jul, [facility] [place] [facility] [address] [id number] [place] [address]- 1249 Jul, [facility] [place] [facility] [address] [id number] [place] [address]- 0689 Jun, [facility] [place] [facility] [address] [id number] [place] [address]- 2869 Jun, [facility] [place] [facility] [address] [id number] [place] [address]- 8159 Jun, [facility] [place] [facility] [address] [id number] [place] [address]- 5418 Jun, [facility] [place] [facility] [address] [id number] [place] [address]- 7893 Jun, [facility] [place] [facility] [address] [facility] [id number] [place] [address]- 9830 Jun, [facility] [place] [facility] [address] [id number] [place] [address]- 6815 Mar, [facility] [place] [facility] [address] [id number] [place] [address]- 4572 Dec, [facility] [place] [facility] [address] [id number] [place] 9978 Dec, [facility] [place] [facility] [address] [id number] [place] [address] Nov, [facility] [place] [facility] [address] [id number] [place] [address] 16 Nov, 2010 [facility] [place] [facility] [address] [id number] [place] [address] 10 Sep, 2010 [facility] [address] [id number] [place] [address] 31 Aug, 2010 [facility] [address] [id number] [place] [address] Aug, [facility] [address] [id number] [place] [address] Aug, [facility] [address] [id number] [place] [address] 29 Aug, 2010 [facility] [address] [id number] [place] [address] Aug, [facility] [address] [id number] [place] [address] 14 Aug, 2010 [facility] [address] [id number] [place] [address] Aug, [facility] [address] [id number] [place] [address] Aug, [facility] [address] [id number] [place] [address] Aug, [facility] [address] [id number] [place] [address] Aug, [facility] [address] [id number] [place] [address] Aug, [facility] [address] [id number] [place] [address] Aug, [facility] [place] [facility] [address] [id number] [place] [address] Jul, [facility] [address] [id number] [place] [address] Jul, [facility] [address] [id number], [place] [address] 30 Jul, 2010 [facility] [place] [facility] [address] [id number] [place] [address] 17 Jul, 2010 [facility] [place] [facility] [address] [id number] [place] [address] 08 Jul, 2010 [facility] [place] [facility] [address] [id number] [place] [address] 25[address] Jul, [facility] [place] [facility] [address] [id number] [place] [address] 24 Jun, 2010 [facility] [place] [facility] [address] [id number] [place] [address] Jun, [facility] [place] [facility] [address] [id number] [place] [address] Jun, [facility] [place] [facility] [address] [id number] [place] [address] Jun, [facility] [place] [facility] [address] [id number] [place] [address] 16 Apr, 2010 [facility] [place] [facility] [address] [id number] [place] [address] Mar, [facility] [place] [facility] [address] [id number] [place] [address] Feb, [facility] [place] [facility] [address] [id number], [place] [address] January, [facility] [place] [facility] [address] [id number] [place] [address] 15 Dec, 2009 [facility] [place] [facility] [address] [id number] [place] [address] 11 Nov, 2009 [facility] [place] [facility] [address] [id number] [place] [address] 31 Aug, 2009 [facility] [place] [facility] [address] [id number] [place] [address] 23 Aug, 2009 [facility] [place] [facility] [address] [facility] [id number], [place] [address] Aug, [facility] [address] [facility] [id number], [place] [address] Jul, [facility] [address] [facility] [id number], [place] [address] Jul, [facility] [address] [facility] [id number], [place] [address] Jul, [facility] [address] [facility] [id number], [place] [address] Jun, [facility] [id number] [place] [address] Jun, [facility] [address] [facility] [id number], [place] [address] Jun, [facility] [id number], [place] [address] Jun, [facility] [id number], [place] [address] Jun, [facility] [id number], [place] [address] Jun, [facility] [id number] Apr, [facility] [id number], [place] [address] Apr, [facility] [address] [facility] [id number], [place] [address] Feb, [facility] [id number], [place] [address] January, [facility] [id number], [place] [address] Dec, IMMUNIZATIONS No Known Immunizations SOCIAL HISTORY Never Assessed REASON FOR VISIT Controlled Med Refill 02/13/18 PLAN OF CARE VITAL SIGNS MEDICATIONS Medication [...] (Left) 2000 Surgical History EGD ([facility]) 2009 Surgical History colonoscopy 2009 ([facility]), 2013 ([place]) Surgical History heart cath: CAD w/ PTCA [...] History inability to urinate 09/16/15 Hospitalization History [facility][1] early Hospitalization History hyperkalemia 10/2017 Hospitalization History fluid in lung
--- OUTSIDE RECORDS SUMMARY | 2018-08-08 14:13 | XMS REPORT ---
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 Name Role Phone CLAUDIANANCY CURRIE Unavailable PROBLEMS Type Condition ICD9-CM Code MYL95-ZC Code Onset Dates Condition Status SNOMED Code Problem Chronic lymphocytic leukemia C91.10 Active 66519249 Problem Lymphocytosis D72.820 Active 96811244 Problem Eye exam abnormal R93.8 Active 029722681 Problem Eustachian tube dysfunction, unspecified laterality H69.80 Active 37321773 Problem Essential hypertension I10 Active 24439693 Problem Dysuria R30.0 Active 62233753 Problem Diabetic polyneuropathy associated with type 2 diabetes mellitus E11.42 Active 69810999 Problem Cough R05 Active 82295654 Problem Polyneuropathy associated with underlying disease G63 Active 976850917 Problem Retinal edema H35.81 Active 1646775 Problem Bilateral primary osteoarthritis of knee M17.0 Active 092013424 Problem Primary osteoarthritis of right knee M17.11 Active 266036301380235 Problem Pure hypercholesterolemia E78.00 Active 931571064 Problem DM neuro manif type II E11.49 Active 19703868 Problem Benign prostatic hyperplasia with lower urinary tract symptoms, unspecified morphology N40.1 Active 364181352 Problem Hypokalemia E87.6 Active 10569476 Problem 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 Active 453587374 Problem Anemia of chronic illness D63.8 Active 673190770 Problem Bipolar disorder, in partial remission, most recent episode depressed F31.75 Active 50673378 Problem Falling R29.6 Active 097585203 Problem Leukocytosis D72.829 Active 639278873 Problem Reactive airway disease J45.909 Active 230788667641 Problem Diabetes E11.9 Active 87039831 Problem Chronic pain G89.29 Active 03239406 Problem Anxiety F41.9 Active 00219280 Problem Morbid obesity E66.01 Active 791752170 Problem Bipolar I disorder, most recent episode (or current) mixed, moderate F31.62 Active 09493740 Problem Insomnia, unspecified type G47.00 Active 993015191 ALLERGIES No Information ENCOUNTERS Encounter Location Date Diagnosis [facility] [id number] [place] [address] 96800- 3176 Jun, [facility] [address] 42757- 4626 Apr, Chronic pain G89.29 [facility] [address] 04993- 4612 Apr, Primary osteoarthritis of right knee M17.11 [facility] [address] 26078- 7119 Mar, [facility] [address] 35283- 9471 Mar, BMI 50.0-59.9, adult Z68.43 and Bipolar disorder, in partial remission, most recent episode depressed F31.75 [facility] [id number] [place] [address] 27055- 3225 Mar, Diabetes E11.9 ; Pure hypercholesterolemia E78.00 ; Essential hypertension I10 ; Nausea with vomiting, unspecified R11.2 and Headache, unspecified headache type R51 [facility] [id number] [place] [address] 04597- 8388 Mar, Bipolar I disorder, most recent episode (or current) mixed, moderate F31.62 [facility] [id number] [place] [address] 54365- 5090 Mar, Bipolar I disorder, most recent episode (or current) mixed, moderate F31.62 [facility] [address] 39470- 7461 Mar, Chronic pain G89.29 [facility] [id number] [place] [address] 73009- 6557 Mar, Bipolar I disorder, most recent episode (or current) mixed, moderate F31.62 [facility] [address] [place] [address] 96192- 4105 18 Feb, 2018 Bipolar I disorder, most recent episode (or current) mixed, moderate F31.62 [facility] [id number] [place] [address] 49650- 4759 14 Feb, 2018 Chronic pain G89.29 [facility] [id number] [place] [address] 35183- 4772 06 Feb, 2018 Decubitus ulcer of right foot, stage 3 L89.893 and BMI 50.0- 59.9, adult Z68.43 [facility] [id number] [place] [address] 96586- 7503 Feb, Bipolar I disorder, most recent episode (or current) mixed, moderate F31.62 [facility] [id number] [place] [address] 99947- 4599 Feb, [facility] [id number] [place] [address] 49588- 3413 January, [facility] [id number] [place] [address] 64709- 0592 January, Chronic pain G89.29 [facility] [id number] [place] [address] 86313- 8084 January, Bipolar I disorder, most recent episode (or current) mixed, moderate F31.62 [facility] [id number] [place] [address] 37558- 8309 January, Bipolar I disorder, most recent episode (or current) mixed, moderate F31.62 [facility] [id number] [place] [address] 54989- 3933 Dec, Bipolar I disorder, most recent episode (or current) mixed, moderate F31.62 and BMI 50.0-59.9, adult Z68.43 [facility] [id number] [place] [address] 46834- 8023 Dec, Bipolar I disorder, most recent episode (or current) mixed, moderate F31.62 [facility] [id number] [place] [address] 59194- 4779 Dec, Chronic pain G89.29 [facility] [id number] [place] [address] 71552- 5386 Dec, DM neuro manif type II E11.49 ; Right flank pain R10.9 ; 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 ; Encounter for medication monitoring Z51.81 and BMI 50.0-59.9, adult Z68.43 [facility] [id number] [place] [address] 11574- 2345 Dec, Bipolar I disorder, most recent episode (or current) mixed, moderate F31.62 [facility] [id number] [place] [address] 54504- 3509 Nov, Bipolar I disorder, most recent episode (or current) mixed, moderate F31.62 [facility] [id number] [place] [address] 44033- 1003 Nov, Chronic pain G89.29 [facility] [id number] [place] [address] 40822- 9994 Nov, Bipolar I disorder, most recent episode (or current) mixed, moderate F31.62 [facility] [id number] [place] [address] 01122- 6774 Nov, Hypokalemia E87.6 [facility] [id number] [place] [address] 83552- 6654 Nov, Bipolar I disorder, most recent episode (or current) mixed, moderate F31.62 [facility] [id number] [place] [address] 58050- 2423 Oct, Chronic pain G89.29 [facility] [id number] [place] [address] 35290- 4664 Oct, BMI 50.0-59.9, adult Z68.43 and Bipolar I disorder, most recent episode (or current) mixed, moderate F31.62 [facility] [address] 69708- 6085 Oct, Bipolar I disorder, most recent episode (or current) mixed, moderate F31.62 [facility] [address] 79663- 4505 Oct, [facility] [address] 84608- 5304 Oct, Hypokalemia E87.6 [facility] [address] 37776- 2504 Oct, DM neuro manif type II E11.49 [facility] [address] 07175- 5712 Oct, Bipolar I disorder, most recent episode (or current) mixed, moderate F31.62 [facility] [id number] [place] [address] 03047- 6890 Oct, Bipolar I disorder, most recent episode (or current) mixed, moderate F31.62 [facility] [id number] [place] [address] 28755- 1027 Oct, Hyperkalemia E87.5 ; Falling R29.6 ; BMI 50.0-59.9, adult Z68.43 and Acute left ankle pain M25.572 [facility] [id number] [place] [address] 05274- 7274 Oct, DM neuro manif type II E11.49 [facility] [address] 21727- 5220 Oct, [facility] [address] 51011- 6507 Sep, Chronic pain G89.29 [facility] [address] 71341- 4208 Sep, [facility] [id number] [place] [address] 65596- 5287 Sep, Bilateral primary osteoarthritis of knee M17.0 [facility] [id number] [place] [address] 86548- 7826 Sep, Generalized edema R60.1 [facility] [id number] [place] [address] 55307- 1227 Sep, Bipolar I disorder, most recent episode (or current) mixed, moderate F31.62 [facility] [id number] [place] [address] 97748- 2522 Sep, Hypoxia R09.02 ; Other hypervolemia E87.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 ; Anemia of chronic illness D63.8 and BMI 50.0- 59.9, adult Z68.43 [facility] [id number] [place] [address] 41863- 7490 Sep, [facility] [address] 99940- 0658 Sep, Bipolar I disorder, most recent episode (or current) mixed, moderate F31.62 [facility] [id number] [place] [address] 21932- 6226 Aug, Chronic pain G89.29 [facility] [id number] [place] [address] 11415- 0400 Aug, Generalized edema R60.1 [facility] [id number] [place] [address] 24213- 5285 Aug, [facility] [id number] [place] [address] 76864- 6808 Aug, [facility] [id number] [place] [address] 45506- 5580 Aug, Bipolar I disorder, most recent episode (or current) mixed, moderate F31.62 [facility] [address] [place] [address] 39815- 8981 Aug, Bipolar I disorder, most recent episode (or current) mixed, moderate F31.62 [facility] [address] [place] [address] 18524- 9402 Aug, Chronic pain G89.29 [facility] [id number] [place] [address] 727735- 6188 Jul, Bipolar I disorder, most recent episode (or current) mixed, moderate F31.62 [facility] [id number] [place] [address] 151780- 5809 Jul, Bipolar I disorder, most recent episode (or current) mixed, moderate F31.62 and BMI 60.0-69.9, adult Z68.44 [facility] [id number] [place] [address] 30276- 8997 Jul, Bipolar I disorder, most recent episode (or current) mixed, moderate F31.62 [facility] [id number] [place] [address] 26177- 2634 Jul, Chronic pain G89.29 [facility] [id number] [place] [address] 75160- 9899 Jul, Bipolar I disorder, most recent episode (or current) mixed, moderate F31.62 [facility] [id number] [place] [address] 11465- 2528 Jun, Polyneuropathy associated with underlying disease G63 and Diabetes E11.9 [facility] [id number] [place] [address] 48385- 1126 Jun, Bipolar I disorder, most recent episode (or current) mixed, moderate F31.62 [facility] [id number] [place] [address] 35842- 8829 Jun, Chronic pain G89.29 [facility] [address] [place] [address] 25010- 9711 27 May, 2017 Bipolar I disorder, most recent episode (or current) mixed, moderate F31.62 [facility] [id number] [place] [address] 782347- 5250 21 May, 2017 Bipolar I disorder, most recent episode (or current) mixed, moderate F31.62 [facility] [id number] [place] [address] 14417- 6585 20 May, 2017 Diabetic polyneuropathy associated with type 2 diabetes mellitus E11.42 [facility] [address] [place] [address] 92670- 1030 18 May, 2017 Bipolar I disorder, most recent episode (or current) mixed, moderate F31.62 [facility] [address] [place] [address] 12494- 4788 13 May, 2017 Bipolar I disorder, most recent episode (or current) mixed, moderate F31.62 [facility] [address] [place] [address] 15578- 2769 May, Chronic pain G89.29 [facility] [id number] [place] [address] 98838- 7738 Apr, Bipolar I disorder, most recent episode (or current) mixed, moderate F31.62 [facility] [address] [address]- 1541 Apr, [facility] [id number] [place] [address] 93495- 9417 Apr, Chronic pain G89.29 and DM neuro manif type II E11.49 [facility] [address] [place] [address] 32127- 1410 Apr, [facility] [address] [place] [address] 14757- 3376 Apr, Bipolar I disorder, most recent episode (or current) mixed, moderate F31.62 [facility] [address] [address]- 5534 Apr, Chronic pain G89.29 [facility] [id number] [place] [address] 97705- 4209 Apr, Iliotibial band syndrome, left M76.32 [facility] [address] [place] [address] 45398- 5009 Apr, Bipolar I disorder, most recent episode (or current) mixed, moderate F31.62 [facility] [id number] [place] [address] 98460- 1697 Mar, Bipolar I disorder, most recent episode (or current) mixed, moderate F31.62 [facility] [id number] [place] [address] 11533- 6498 Mar, Bipolar I disorder, most recent episode (or current) mixed, moderate F31.62 [facility] [id number] [place] [address] 48068- 0955 Mar, [facility] [id number] [place] [address] 74681- 7914 Mar, Bipolar I disorder, most recent episode (or current) mixed, moderate F31.62 [facility] [address] [place] [address] 76079- 6873 Mar, Chronic pain G89.29 [facility] [address] [place] [address] 14832- 5695 Mar, Bipolar I disorder, most recent episode (or current) mixed, moderate F31.62 [facility] [address] [address]- 4534 Mar, Bipolar I disorder, most recent episode (or current) mixed, moderate F31.62 [facility] [address] [address]- 1868 Mar, Acute pain of left knee M25.562 ; Left hip pain M25.552 ; Generalized edema R60.1 and Tongue swelling R22.0 [facility] [address] [place] [address] 01571- 9788 Mar, [facility] [id number] [place] [address] 39801- 6456 Feb, Chronic pain G89.29 [facility] [id number] [place] [address] 87659- 4677 Feb, Diabetes E11.9 [facility] [id number] [place] [address] 91702- 7637 January, Chronic pain G89.29 [facility] [id number] [place] [address] 18626- 2395 January, [facility] [id number] [place] [address] 27673- 2293 January, Bipolar I disorder, most recent episode (or current) mixed, moderate F31.62 [facility] [id number] [place] [address] 25019- 7840 Dec, Bipolar I disorder, most recent episode (or current) mixed, moderate F31.62 [facility] [id number] [place] [address] 02763- 5542 Dec, Chronic pain G89.29 [facility] [id number] [place] [address] 05355- 5629 Dec, Bipolar I disorder, most recent episode (or current) mixed, moderate F31.62 [facility] [address] [place] [address] 86415- 1200 Dec, Diabetes E11.9 ; Essential hypertension I10 ; Chronic pain G89.29 and Morbid obesity E66.01 [facility] [id number] [place] [address] 46017- 8990 Dec, [facility] [id number] [place] [address] 67516- 0938 Dec, Bipolar I disorder, most recent episode (or current) mixed, moderate F31.62 [facility] [address], [place] [address]- 6166 Dec, Bipolar I disorder, most recent episode (or current) mixed, moderate F31.62 [facility] [address], [place] [address] 2546 Nov, Chronic pain G89.29 [facility] [address] [place] [address] 10441 2546 Nov, Bipolar I disorder, most recent episode (or current) mixed, moderate F31.62 [facility] [address], [place] [address]- 2066 Nov, [facility] [id number] [place] [address] 32983- 6096 Nov, Bipolar I disorder, most recent episode (or current) mixed, moderate F31.62 [facility] [address] [place] [address] 55676- 2816 Nov, Bipolar I disorder, most recent episode (or current) mixed, moderate F31.62 [facility] [address], [place] [address]- 2766 Nov, [facility] [address], [place] [address]- 8616 Nov, [facility] [address], [place] [address]- 0466 Nov, [facility] [address], [place] [address] 2546 Oct, Chronic pain G89.29 [facility] [id number] [place] [address] 22831- 2646 Oct, Bipolar I disorder, most recent episode (or current) mixed, moderate F31.62 [facility] [address], [place] [address]- 8546 Oct, [facility] [address] [place] [address] 52211- 7597 15 Oct, 2016 Chronic pain G89.29 ; Diabetes E11.9 ; Anxiety F41.9 and 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 [facility] [id number] [place] [address] 29953- 3526 10 Oct, 2016 [facility] [id number] [place] [address] 70143- 9486 06 Oct, 2016 Diabetes E11.9 [facility] [id number] [place] [address] 11460- 5595 Oct, Bipolar I disorder, most recent episode (or current) mixed, moderate F31.62 [facility] [id number] [place] [address] 92040- 2809 Sep, Chronic pain G89.29 [facility] [id number] [place] [address] 31374- 3916 Sep, Chronic pain G89.29 [facility] [id number] [place] [address] 43021- 1883 Aug, Chronic pain G89.29 [facility] [id number] [place] [address] 88484- 2125 Jul, [facility] [id number] [place] [address] 01284- 3307 Jul, Diabetes E11.9 [facility] [address] [place] [address] 25224- 5092 Jul, Chronic pain G89.29 [facility] [id number] [place] [address] 73392- 2773 Jul, Bipolar I disorder, most recent episode (or current) mixed, moderate F31.62 [facility] [address] [place] [address] 10965- 7463 Jun, Bipolar I disorder, most recent episode (or current) mixed, moderate F31.62 [facility] [address] [place] [address] 63380- 7079 Jun, [facility] [id number] [place] [address] 27524- 6651 Jun, Bipolar I disorder, most recent episode (or current) mixed, moderate F31.62 [facility] [id number] [place] [address] 37578- 4130 30 May, 2016 Insomnia, unspecified type G47.00 [facility] [id number] [place] [address] 81812- 7893 May, Bipolar I disorder, most recent episode (or current) mixed, moderate F31.62 [facility] [id number] [place] [address] 68411- 2524 14 May, 2016 [facility] [id number] [place] [address] 46612- 0120 May, Bipolar I disorder, most recent episode (or current) mixed, moderate F31.62 [facility] [id number] [place] [address] 20624- 6292 May, Diabetes E11.9 and Essential hypertension I10 [facility] [id number] [place] [address] 90329- 6720 Apr, Chronic pain G89.29 [facility] [id number] [place] [address] 05524- 3144 Apr, Bipolar I disorder, most recent episode (or current) mixed, moderate F31.62 [facility] [id number] [place] [address] 56814- 9728 Apr, [facility] [id number] [place] [address] [phone] Apr, [facility] [id number] [place] [address] [phone] Mar, Chronic pain G89.29 ; Headache, unspecified headache type R51 ; Neuropathy G62.9 ; Pain of right hip joint M25.551 and Essential hypertension I10 [facility] [id number] [place] [address] [phone] Mar, Chronic pain G89.29 [facility] [id number] [place] [address] [id number] Mar, Bipolar I disorder, most recent episode (or current) mixed, moderate F31.62 [facility] [id number] [place] [address] [phone] Feb, Bipolar I disorder, most recent episode (or current) mixed, moderate F31.62 and Insomnia, unspecified type G47.00 [facility] [id number] [place] [address] [phone] Feb, Chronic pain G89.29 [facility] [id number] [place] [address] [phone] Feb, Bipolar I disorder, most recent episode (or current) mixed, moderate F31.62 [facility] [id number] [place] [address] [phone] January, Bipolar I disorder, most recent episode (or current) mixed, moderate F31.62 [facility] [id number] [place] [address] [phone] January, Chronic pain G89.29 [facility] [facility] [id number] [place] [address] 36966- 0864 January, Chronic pain G89.29 and Essential hypertension I10 [facility] [id number] [place] [address] 02944- 4894 January, Bipolar I disorder, most recent episode (or current) mixed, moderate F31.62 [facility] [id number] [place] [address] 39089- 7009 Dec, [facility] [id number] [place] [address] 33228- 1616 Dec, [facility] [address], [place] [address] 8340 Dec, [facility] [id number] [place] [address] 25636- 9273 Dec, [facility] [id number] [place] [address] 08157- 5268 Nov, Reactive airway disease J45.909 [facility] [id number] [place] [address] 96852- 7107 Nov, [facility] [id number] [place] [address] 29750- 5147 Nov, [facility] [id number] [place] [address] 86377- 7094 Nov, [facility] [id number] [place] [address] 41079- 9383 Nov, [facility] [id number] [place] [address] 55632- 0050 Nov, Onychomycosis B35.1 ; Hammertoe M20.40 ; [place] or callus L84 and DM neuro manif type II E11.49 [facility] [id number] [place] [address] 84897- 6287 Nov, Chronic pain G89.29 ; Leukocytosis D72.829 and Diabetes E11.9 [facility] [id number] [place] [address] 23949- 3805 Nov, [facility] [id number] [place] [address] 20916- 5165 Oct, Bronchitis J40 [facility] [id number] [place] [address] 59155- 0048 Oct, [facility] [id number] [place] [address] 56576- 8040 Oct, [facility] [id number] [place] [address] 24532- 3975 Oct, Mastoiditis, unspecified laterality H70.90 and Type 2 diabetes mellitus with complication E11.8 [facility] [id number] [place] [address] 74355- 3312 Sep, [facility] [id number] [place] [address] 69953- 8651 Sep, Dysuria R30.0 ; Cough R05 ; Benign prostatic hyperplasia with lower urinary tract symptoms, unspecified morphology N40.1 ; Hypokalemia E87.6 and Eustachian tube dysfunction, unspecified laterality H69.80 [facility] [id number] [place] [address] 86297- 0777 Sep, Moderate mixed bipolar I disorder F31.62 [facility] [id number] [place] [address] 43602- 3155 Sep, Hypokalemia E87.6 [facility] [id number] [place] [address] 85562- 6894 Sep, [facility] [id number] [place] [address] 58532- 7388 Sep, Upper respiratory tract infection, unspecified type J06.9 [facility] [id number] [place] [address] 29713- 5672 Aug, [facility] [id number] [place] [address] 09679- 6892 Aug, Dysuria R30.0 [facility] [id number] [place] [address] 31374- 8755 Aug, [facility] [id number] [place] [address] 68652- 5802 Jul, [facility] [id number] [place] [address] 14675- 8839 Jul, [facility] [id number] [place] [address] 93304- 0718 Jul, [facility] [address], [place] [address]- 0731 Jul, [facility] [id number] [place] [address] 97112- 4135 Jun, [facility] [address] [place] [address] 09864- 7856 Jun, [facility] [id number] [place] [address] 02806- 3015 Jun, [facility] [id number] [place] [address] 49786- 6536 May, [facility] [id number] [place] [address] 12550- 0511 May, Bipolar I disorder, most recent episode (or current) mixed, moderate 296.62 [facility] [id number] [place] [address] 88052- 9815 May, [facility] [address] [place] [address] 41105- 2600 May, Bipolar I disorder, most recent episode (or current) mixed, moderate 296.62 and Major depressive disorder, recurrent episode, severe, specified as with psychotic behavior 296.34 [facility] [address] [address]- 7967 May, Bipolar I disorder, most recent episode (or current) mixed, moderate 296.62 [facility] [address], [place] [address]- 7863 May, [facility] [address], [place] [address]- 9474 Apr, [facility] [address] [place] [address] 37651- 7074 Apr, [facility] [address], [place] [address]- 7483 Apr, Unspecified disorder of kidney and ureter 593.9 and Diabetes mellitus type 2, uncontrolled 250.02 [facility] [address], [place] [address]- 3297 Apr, [facility] [id number] [place] [address] 29708- 4863 Apr, [facility] [id number] [place] [address] 53977- 5563 Apr, [facility] [id number] [place] [address] 61598- 1530 Apr, [facility] [id number] [place] [address] 15311- 0533 Apr, Diabetes mellitus type II, uncontrolled 250.02 [facility] [id number] [place] [address] 63567- 5135 Apr, [facility] [id number] [place] [address] 01526- 8089 Mar, [facility] [id number] [place] [address] 49628- 8876 Mar, [facility] [id number] [place] [address] 57903- 2423 Mar, [facility] [address] [place] [address] 36801- 0602 Mar, Major depressive disorder, recurrent episode, severe, specified as with psychotic behavior 296.34 and Bipolar I disorder, most recent episode (or current) mixed, moderate 296.62 [facility] [address] [place] [address] 08914- 5604 Mar, Diabetes 250.00 ; Anuria 788.5 ; Nausea and vomiting 787.01 and Diarrhea 787.91 [facility] [address] [place] [address] 59545- 2275 Mar, Diabetes 250.00 [facility] [id number] [place] [address] 06679- 7255 Mar, [facility] [address], [place] [address]- 6049 Mar, Diabetes 250.00 [facility] [id number] [place] [address] 05661- 0485 Mar, [facility] [id number] [place] [address] 86848- 5286 Mar, [facility] [id number] [place] [address] 69775- 4895 Mar, [facility] [id number] [place] [address] 14920- 4000 Mar, [facility] [id number] [place] [address] 34064- 5097 Mar, Bipolar I disorder, most recent episode (or current) mixed, moderate 296.62 and Major depressive disorder, recurrent episode, severe, specified as with psychotic behavior 296.34 [id number] [place] [address] 22928- 5930 Mar, Magnesium deficiency 275.2 ; Hypokalemia 276.8 ; Nausea & vomiting 787.01 and Diabetes mellitus type 2, uncontrolled 250.02 [facility] [id number] [place] [address] 17139- 2764 Feb, [id number] [place] [address] 65914- 0450 Feb, Bipolar I disorder, most recent episode (or current) mixed, moderate 296.62 [facility] [address] [place] [address] 36849- 9243 Feb, Nausea and vomiting 787.01 ; Left elbow pain 719.42 ; Anuria 788.5 and Diabetes 250.00 [facility] [address] [place] [address] 15262- 5936 Feb, [facility] [id number] [place] [address] 16514- 0976 Feb, Hypopotassemia 276.8 and Hypokalemia 276.8 [facility] [address], [place] [address]- 5337 Feb, Hypopotassemia 276.8 and Hypokalemia 276.8 [facility] [id number] [place] [address] 78377- 8108 Feb, Seborrheic keratoses 702.19 [facility] [id number] [place] [address] 24436- 7900 Feb, Hypopotassemia 276.8 and Low magnesium levels 275.2 [facility] [id number] [place] [address] 60885- 5054 January, [facility] [id number] [place] [address] 15767- 4763 January, [facility] [id number] [place] [address] 04250- 3838 January, [facility] [id number] [place] [address] 26749- 1488 January, Scalp lesion 709.9 [facility] [id number] [place] [address] 20697- 8741 January, [facility] [id number] [place] [address] 16897- 8372 Dec, Tear of medial cartilage or meniscus of knee, current 836.0 and 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 [facility] [address], [place] [address]- 3411 Dec, [facility] [address] [place] [address] 64518- 1456 Dec, [facility] [id number] [place] [address] 89354- 8743 Dec, Squamous cell carcinoma, 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 [facility] [id number] [place] [address] 56295- 5385 14 Dec, 2014 [facility] [place] [facility] [address] [id number] [place] [address]- 2244 13 Dec, 2014 [facility] [place] [facility] [address] [id number] [place] [address]- 5935 Nov, [facility] [place] [facility] [address] [id number] [place] [address]- 5256 Nov, [facility] [place] [facility] [address] [id number] [place] [address]- 7390 Nov, [facility] [place] [facility] [address] [id number] [place] [address]- 1794 Nov, [facility] [place] [facility] [address] [id number] [place] [address]- 2102 Nov, [facility] [place] [facility] [address] [id number] [place] [address]- 8932 Nov, [facility] [place] [facility] [address] [id number] [place] [address]- 8176 Nov, [facility] [place] [facility] [address] [id number] [place] [address]- 7295 Nov, [facility] [place] [facility] [address] [id number] [place] [address]- 1757 Nov, [facility] [place] [facility] [address] [id number] [place] [address]- 0637 Nov, [facility] [place] [facility] [address] [id number] [address]- 0136 Nov, [facility] [place] [facility] [address] [id number] [place] [address]- 0689 Nov, [facility] [place] [facility] [address] [id number] [place] [address]- 0178 Oct, [facility] [place] [facility] [address] [id number] [address]- 8274 Oct, [facility] [place] [facility] [address] [id number], [place] [address]- 8898 Oct, 2014 [facility] [place] [facility] [address] [id number] [place] [address]- 0110 Oct, 2014 [facility] [place] [facility] [address] [id number] [place] [address]- 2286 Oct, 2014 [facility] [place] [facility] [address] [id number] [place] [address]- 1356 Oct, 2014 [facility] [place] [facility] [address] [id number] [place] [address]- 4363 Oct, 2014 [facility] [place] [facility] [address] [id number] [place] [address]- 1351 Oct, 2014 [facility] [place] [facility] [address] [id number] [place] [address]- 1439 Oct, 2014 [facility] [place] [facility] [address] [facility] [id number] [place] [address]- 5233 Sep, [facility] [place] [facility] [address] [id number] [place] [address]- 0409 Sep, [facility] [place] [facility] [address] [id number] [place] [address]- 5918 Sep, [facility] [place] [facility] [address] [facility] [id number] [place] [address]- 2771 Sep, [facility] [place] [facility] [address] [id number] [place] [address]- 3040 Sep, [facility] [place] [facility] [address] [id number] [place] [address]- 6627 Sep, [facility] [place] [facility] [address] [id number] [place] [address]- 2897 Sep, [facility] [place] [facility] [address] [id number] [place] [address]- 9282 Sep, [facility] [place] [facility] [address] [id number] [place] [address]- 5749 Sep, [facility] [place] [facility] [address] [id number] [place] [address]- 6987 14 Sep, 2014 [facility] [place] [facility] [address] [id number] [place] [address]- 3471 Sep, [facility] [place] [facility] [address] [id number] [place] [address]- 0413 08 Sep, 2014 [facility] [place] [facility] [address] [id number] [place] [address]- 9993 Sep, [facility] [place] [facility] [address] [id number] [place] [address]- 8808 Sep, [facility] [place] [facility] [address] [id number] [place] [address]- 0398 Sep, [facility] [place] [facility] [address] [id number] [place] [address]- 9217 Sep, [facility] [place] [facility] [address] [id number] [place] [address]- 8269 Aug, [facility] [place] [facility] [address] [id number] [place] [address]- 6933 31 Aug, 2014 [facility] [place] [facility] [address] [id number] [place] [address]- 5144 31 Aug, 2014 [facility] [place] [facility] [address] [id number] [place] [address]- 9582 31 Aug, 2014 [facility] [place] [facility] [address] [id number] [place] [address]- 9771 31 Aug, 2014 [facility] [place] [facility] [address] [id number] [place] [address]- 7468 31 Aug, 2014 [facility] [place] [facility] [address] [id number] [place] [address]- 1006 17 Aug, 2014 [facility] [place] [facility] [address] [id number] [place] [address]- 4451 17 Aug, 2014 [facility] [place] [facility] [address] [id number] [place] [address]- 5324 Aug, [facility] [address] [id number] [place] [address]- 0839 Aug, [facility] [address] [id number] [place] [address]- 9586 Aug, [facility] [address] [place] [id number] Aug, [facility] [address] [id number] [place] [address]- 9857 Aug, [facility] [address] [id number] [place] [address]- 1145 Aug, [facility] [address] [id number] [place] [address]- 1319 Aug, [facility] [address] [id number] [place] [address]- 8555 Aug, [facility] [address] [id number] [place] [address]- 7137 Aug, [facility] [address] [id number] [place] [address]- 2329 Aug, [facility] [address] [id number] [place] [address]- 0236 Aug, [facility] [place] [facility] [address] [id number] [place] [address]- 3659 Aug, [facility] [place] [facility] [address] [id number] [place] [address]- 6161 Aug, [facility] [place] [facility] [address] [id number] [place] [address]- 3471 Aug, [facility] [place] [facility] [address] [id number] [place] [address]- 2322 Aug, [facility] [place] [facility] [address] [id number] [place] [address]- 5064 Aug, [facility] [place] [facility] [address] [id number] [place] [address]- 5299 Aug, [facility] [place] [facility] [address] [id number] [place] [address]- 0590 Aug, [facility] [place] [facility] [address] [id number] [place] [address]- 5753 Aug, [facility] [place] [facility] [address] [id number] [place] [address]- 9926 Aug, [facility] [place] [facility] [address] [id number] [place] [address]- 1994 Aug, [facility] [place] [facility] [address] [id number] [place] [address]- 6521 Aug, [facility] [place] [facility] [address] [id number] [place] [address]- 3659 Jul, [facility] [place] [facility] [address] [id number] [place] [address]- 1892 Jul, [facility] [place] [facility] [address] [id number] [place] [address]- 1244 Jul, [facility] [place] [facility] [address] [id number] [place] [address]- 4000 Jul, [facility] [place] [facility] [address] [facility] [id number] [place] [address]- 1243 Jul, [facility] [place] [facility] [address] [id number] [place] [address]- 1475 Jul, [facility] [place] [facility] [address] [id number] [place] [address]- 3883 Jul, [facility] [place] [facility] [address] [id number] [place] [address]- 9735 Jul, [facility] [place] [facility] [address] [id number] [place] [address]- 0723 Jul, [facility] [place] [facility] [address] [id number] [place] [address]- 6499 Jul, [facility] [place] [facility] [address] [id number] [place] [address]- 6232 Jun, [facility] [place] [facility] [address] [id number] [place] [address]- 2502 Jun, [facility] [place] [facility] [address] [id number] [place] [address]- 4297 Jun, [facility] [place] [facility] [address] [id number] [place] [address]- 7337 Jun, [facility] [place] [facility] [address] [id number] [place] [address]- 7276 Jun, [facility] [place] [facility] [address] [id number] [place] [address] Jun, [facility] [place] [facility] [address] [id number] [place] [address] Jun, [facility] [place] [facility] [address] [id number] [place] [address] Jun, [facility] [place] [facility] [address] [id number] [place] [address] Jun, [facility] [place] [facility] [address] [id number] [place] [address] Jun, [facility] [place] [facility] [address] [id number] [place] [address] 29 May, 2014 [facility] [place] [facility] [address] [id number] [place] [address] 29 Sep, 2013 [facility] [place] [facility] [address] [id number] [place] [address] 26 May, 2014 [facility] [place] [facility] [address] [id number] [place] [address] 26 May, 2013 [facility] [place] [facility] [address] [id number] [place] [address]- [address]92 17 May, 2013 [facility] [place] [facility] [address] [id number] [place] [address]- [address]35 17 May, 2013 [facility] [place] [facility] [address] [id number] [place] [address] 15 May, 2013 [facility] [place] [facility] [address] [id number] [place] [address]- [address]186 15 May, 2013 [facility] [place] [facility] [address] [id number] [place] [address] 2546 15 May, 2013 [facility] [place] [facility] [address] [id number] [place] [address] 2545 15 May, 2013 [facility] [place] [facility] [address] [id number] [place] [address]- 3144 10 May, 2013 [facility] [place] [facility] [address] [id number] [place] [address]- [address]578 10 May, 2013 [facility] [place] [facility] [address] [id number] [place] [address]- 7023 09 May, 2013 [facility] [place] [facility] [address] [id number] [place] [address]- 2639 09 May, 2013 [facility] [place] [facility] [address] [id number] [place] [address]- [address] 04 May, 2013 [facility] [place] [facility] [address] [id number] [place] [address]- [address] May, 2013 [facility] [place] [facility] [address] [id number] [place] [address]- 1816 Apr, [facility] [place] [facility] [address] [id number] [place] [address] 6001 Apr, [facility] [place] [facility] [address] [id number] [place] [address]- 7892 Apr, [facility] [place] [facility] [address] [id number] [place] [address] 1008 Apr, [facility] [place] [facility] [address] [id number] [place] [address]- 38[address] Apr, [facility] [place] [facility] [address] [id number] [place] [address] Apr, [facility] [place] [facility] [address] [id number] [place] [address] 9069 Apr, [facility] [place] [facility] [address] [id number] [place] [address] Apr, [facility] [place] [facility] [address] [id number] [place] [address] 111[address] Apr, [facility] [place] [facility] [address] [id number] [place] [address] 9992 Apr, [facility] [place] [facility] [address] [id number] [place] [address]- 2243 Apr, [facility] [place] [facility] [address] [id number] [place] [address]- 2093 Apr, [facility] [place] [facility] [address] [id number] [place] [address] Apr, [facility] [place] [facility] [address] [id number] [place] [address]- 9679 Apr, [facility] [place] [facility] [address] [id number] [place] [address]- [address] Apr, [facility] [place] [facility] [address] [id number] [place] [address]- 5923 Mar, [facility] [place] [facility] [address] [id number] [place] [address] Mar, [facility] [place] [facility] [address] [id number] [place] [address] Mar, [facility] [place] [facility] [address] [id number] [place] [address]- [address] Mar, [facility] [place] [facility] [address] [id number] [place] [address]- 7709 Mar, [facility] [place] [facility] [address] [id number] [place] [address]- [address]120 Mar, [facility] [place] [facility] [address] [id number] [place] [address]- [address]695 Mar, 2013 [facility] [place] [facility] [address] [id number] [place] [address]- [address]15 Mar, 2013 [facility] [place] [facility] [address] [id number] [place] [address]- 0903 Mar, 2013 [facility] [place] [facility] [address] [id number] [place] [address]- 9490 Mar, 2013 [facility] [place] [facility] [address] [id number] [place] [address]- 78[address] Mar, 2013 [facility] [place] [facility] [address] [id number] [place] [address]- [address] Mar, 2013 [facility] [place] [facility] [address] [id number] [place] [address]- 3607 Mar, 2013 [facility] [place] [facility] [address] [id number] [place] [address]- [address]37 Mar, 2013 [facility] [place] [facility] [address] [id number] [place] [address]- 27[address] Mar, 2013 [facility] [place] [facility] [address] [id number] [place] [address]- 5469 Mar, 2013 [facility] [place] [facility] [address] [id number] [place] [address]- [address]697 Mar, [facility] [facility] [address] [id number] [place] [address] Mar, [facility] [place] [facility] [address] [id number] [place] [address] 6524 Feb, [facility] [place] [facility] [address] [id number] [place] [address] 9895 Feb, [facility] [place] [facility] [address] [id number] [place] [address]- 7146 Feb, [facility] [place] [facility] [address] [id number] [place] [address]- 3162 Feb, [facility] [place] [facility] [address] [id number] [place] [address]- 7672 Feb, [facility] [place] [facility] [address] [id number] [place] [address]- 7596 Feb, [facility] [place] [facility] [address] [id number] [place] [address]- 3093 Feb, [facility] [place] [facility] [address] [id number] [place] [address]- 4536 Feb, [facility] [place] [facility] [address] [id number] [place] [address]- 9663 Feb, [facility] [place] [facility] [address] [id number] [place] [address]- 6266 Feb, [facility] [place] [facility] [address] [id number] [place] [address]- 1134 Feb, [facility] [place] [facility] [address] [id number] [place] [address]- 6653 Feb, [facility] [place] [facility] [address] [id number] [place] [address]- 0567 Feb, [facility] [place] [facility] [address] [id number] [place] [address]- 9846 Feb, [facility] [place] [facility] [address] [id number] [place] [address]- 0493 January, [facility] [place] [facility] [address] [id number] [place] [address]- 0025 January, [facility] [place] [facility] [address] [id number] [place] [address]- 2759 January, [facility] [place] [facility] [address] [id number] [place] [address]- 5582 January, [facility] [place] [address] [id number] [place] [address]- 0865 January, [facility] [place] [address] [id number] [place] [address]- 3112 January, [facility] [place] [facility] [address] [id number] [place] [address]- 6052 January, [facility] [place] [address] [id number] [place] [address]- 0987 January, [facility] [address] [id number] [place] [address]- 9857 January, [facility] [place] [facility] [address] [id number] [place] [address]- 4682 January, [facility] [address] [id number] [place] [address]- 3541 January, [facility] [address] [id number] [place] [address]- 5434 January, [facility] [address] [id number] [place] [address]- [address]752 January, [facility] [address] [id number] [place] [address]- 6295 January, [facility] [address] [id number] [place] [address]- 2615 Dec, [facility] [address] [id number] [place] [address]- 0530 Dec, [facility] [address] [id number] [place] [address]- 3049 Dec, [facility] [address] [id number] [place] [address]- 2895 Dec, [facility] [address] [id number] [place] [address]- 5042 Dec, [facility] [address] [id number] [place] [address]- 4848 Dec, [facility] [address] [id number] [place] [address]- 3527 Dec, [facility] [address] [id number] [place] [address]- 1747 Dec, [facility] [address] [id number] [place] [address]- 6493 Dec, [facility] [address] [id number] [place] [address]- 9730 Dec, [facility] [address] [id number] [place] [address]- 7731 Nov, [facility] [address] [id number] [place] [address]- 6696 Nov, [facility] [address] [id number] [place] [address]- 9973 Nov, [facility] [address] [id number] [place] [address]- 8982 Nov, [facility] [address] [id number] [place] [address]- 7888 Nov, [facility] [address] [id number] [place] [address]- 3988 Nov, [facility] [address] [id number] [place] [address]- 4023 Nov, [facility] [address] [id number] [place] [address]- 4571 Nov, [facility] [address] [id number], [place] [address]- 7754 Nov, [facility] [address] [id number] [place] [address]- 3917 Nov, [facility] [address] [id number] [place] [address]- 0238 Oct, [facility] [address] [id number] [place] [address]- 6363 Oct, [facility] [address] [id number] [place] [address]- 3160 Oct, [facility] [address] [id number] [place] [address]- 6946 Oct, [facility] [address] [id number] [place] [address]- 5336 Oct, [facility] [address] [id number] [place] [address]- 5476 Oct, [facility] [address] [id number] [place] [address]- 5948 Oct, [facility] [address] [id number] [place] [address]- 4405 Oct, [facility] [address] [facility] [id number] [place] [address]- 3236 Oct, [facility] [address] [facility] [id number] [place] [address]- 4389 Oct, [facility] [address] [id number] [place] [address]- 4469 Oct, [facility] [address] [facility] [id number] [place] [address]- 8520 Oct, [facility] [address] [facility] [id number] [place] [address]- 4289 Oct, [facility] [address] [facility] [id number], [place] [address]- 7657 Oct, [facility] [address] [facility] [id number] [place] [address]- 0291 Sep, [facility] [address] [id number] [place] [address]- 8608 Sep, [facility] [address] [facility] [id number] [place] [address]- 0209 Sep, [facility] [address] [facility] [id number], [place] [address]- 6675 15 Sep, 2013 [facility] [address] [id number] [place] [address]- 4323 14 Sep, 2013 [facility] [address] [id number] [place] [address]- 6479 14 Sep, 2013 [facility] [address] [id number] [place] [address]- 0643 Sep, [facility] [address] [id number] [place] [address]- 8968 Sep, [facility] [address] [id number] [place] [address]- 6143 Sep, [facility] [address] [id number] [place] [address]- 9736 Sep, [facility] [address] [id number] [place] [address]- 5216 Aug, [facility] [address] [id number] [place] [address]- 5197 Aug, [facility] [address] [id number] [place] [address]- 6946 Jul, [facility] [address] [id number] [place] [address]- 4255 Jul, [facility] [address] [id number], [place] [address]- 5424 Jul, [facility] [address] [id number], [place] [address]- 1759 Jul, [facility] [address] [id number] [place] [address]- 9895 Jul, [facility] [address] [id number], [place] [address]- 0331 Jul, [facility] [address] [id number] [place] [address]- 6287 Jul, [facility] [address] [id number] [place] [address]- 3857 12 Jul, 2012 [facility] [address] [id number] [place] [address]- 9451 Jul, [facility] [address] [id number] [place] [address]- 1171 Jul, [facility] [address] [id number] [place] [address]- 1409 Jul, 2012 [facility] [address] [id number] [place] [address]- 1673 Jul, 2012 [facility] [address] [id number] [place] [address]- 7631 Jul, [facility] [address] [id number] [place] [address]- 5212 Jul, [facility] [address] [id number] [place] [address]- 5985 Jul, [facility] [address] [id number] [place] [address]- 6636 Jul, [facility] [address] [id number] [place] [address]- 0669 Jul, [facility] [address] [id number] [place] [address]- 8889 Jul, [facility] [address] [id number] [place] [address]- 6953 Jul, [facility] [address] [id number], [place] [address]- 3888 Jun, [facility] [address] [id number] [place] [address]- 4916 Jun, [facility] [address] [id number] [place] [address]- 9079 Jun, [facility] [address] [id number] [place] [address]- 0133 Jun, [facility] [address] [id number] [place] [address]- 8569 16 Jun, 2012 [facility] [address] [id number] [place] [address]- 5203 16 Jun, 2013 [facility] [address] [id number] [place] [address]- 4639 10 Jun, 2012 [facility] [address] [id number] [place] [address]- 6979 10 Jun, 2012 [facility] [address] [id number] [place] [address]- 3276 Jun, [facility] [address] [id number] [place] [address]- 2337 Jun, [facility] [address] [id number] [place] [address]- 8672 Jun, [facility] [address] [id number] [place] [address]- 5775 26 Sep, 2012 [facility] [address] [id number] [place] [address]- 3378 25 Sep, 2012 [facility] [address] [id number], [place] [address]- 6764 19 Sep, 2012 [facility] [address] [id number], [place] [address]- 2545 17 Sep, 2012 [facility] [address] [id number], [place] [address]- 2542 11 Sep, 2012 [facility] [address] [id number] [place] [address]- 254 10 Sep, 2012 [facility] [address] [id number], [place] [address]- 2835 09 Sep, 2012 [facility] [address] [id number], [place] [address]- 254 05 Sep, 2012 [facility] [address] [id number] [place] [address]- 4679 Apr, [facility] [address] [id number] [place] [address]- 4851 Apr, [facility] [address] [id number] [place] [address]- 2211 Apr, [facility] [address] [id number] [place] [address]- 8833 Apr, [facility] [address] [id number] [place] [address]- 7781 Apr, [facility] [address] [id number] [place] [address]- 4404 Mar, [facility] [address] [id number] [place] [address]- 0808 Mar, [facility] [address] [id number] [place] [address]- 3203 Mar, [facility] [address] [id number] [place] [address]- 4301 Mar, [facility] [address] [id number] [place] [address]- 7474 Mar, [facility] [address] [id number] [place] [address]- 7570 Mar, [facility] [address] [id number] [place] [address]- 0771 Mar, [facility] [address] [id number] [place] [address]- 7699 Mar, [facility] [address] [id number] [place] [address]- 8311 Feb, [facility] [address] [id number] [place] [address]- 0696 Feb, [facility] [address] [id number] [place] [address]- 6828 January, [facility] [address] [id number] [place] [address]- 3625 January, [facility] [address] [id number] [place] [address]- 5108 Dec, [facility] [address] [id number] [place] [address]- 2545 Dec, [facility] [address] [id number] [place] [address]- 9271 Nov, [facility] [facility] [address] [id number] [place] [address]- 6690 Nov, [facility] [address] [id number] [place] [address]- 7948 Nov, [facility] [address] [id number] [place] [address]- 8184 Nov, [facility] [address] [id number] [place] [address]- 3051 Oct, [facility] [facility] [address] [id number] [place] [address]- 7631 Oct, [facility] [address] [id number] [place] [address]- 8289 Oct, [facility] [facility] [address] [id number] [place] [address]- 5002 Oct, [facility] [address] [id number] [place] [address]- 7891 16 Oct, 2012 [facility] [address] [id number] [place] [address]- 2540 14 Oct, 2012 [facility] [facility] [address] [id number] [place] [address]- 5205 08 Oct, 2012 [facility] [place] [facility] [address] [id number] [place]75 07 Oct, 2012 [facility] [address] [id number] [place] [address]- 3992 03 Oct, 2012 [facility] [address] [id number] [place] [address]- 4702 30 Sep, 2012 [facility] [address] [id number] [place] [address]- 4737 Sep, [facility] [address] [id number] [place] [address]- 1035 Sep, [facility] [address] [id number] [place] [address]- 7773 Sep, [facility] [address] [id number] [place] [address]- 3376 Sep, [facility] [address] [id number] [place] [address]- 1235 Sep, [facility] [address] [id number] [place] [address]- 6811 Sep, [facility] [address] [id number] [place] [address]- 3313 Sep, [facility] [address] [id number] [place] [address]- 5379 31 Aug, 2012 [facility] [address] [id number] [place] [address]- 9603 31 Aug, 2012 [facility] [address] [id number] [place] [address]- 2283 Aug, [facility] [address] [id number] [place] [address]- 2542 28 Aug, 2012 [facility] [address] [id number] [place] [address]- 6307 Aug, [facility] [address] [id number] [place] [address]- 9187 Aug, [facility] [address] [id number] [place] [address]- 6838 18 Aug, 2012 [facility] [place] [facility] [address] [id number] [place] [address]- 3975 Aug, [facility] [place] [facility] [address] [id number] [place] [address]- 6192 Jul, [facility] [place] [facility] [address] [id number] [place] [address]- 7779 Jul, [facility] [place] [facility] [address] [id number] [place] [address]- 9751 Jul, [facility] [place] [facility] [address] [id number] [place] [address]- 5121 Jul, [facility] [place] [facility] [address] [id number] [place] [address]- 6243 Jul, [facility] [place] [facility] [address] [id number] [place] [address]- 1542 Jul, [facility] [place] [facility] [address] [id number] [place] [address]- 7067 Jun, [facility] [place] [facility] [address] [id number] [place] [address]- 5418 Jun, [facility] [place] [facility] [address] [id number] [place] [address]- 4620 Jun, [facility] [place] [facility] [address] [id number] [place] [address]- 0562 Jun, [facility] [place] [facility] [address] [id number] [place] [address]- 3300 Jun, [facility] [place] [facility] [address] [id number] [place] [address]- 5959 Jun, [facility] [place] [facility] [address] [id number] [place] [address]- 9128 Jun, [facility] [place] [facility] [address] [id number] [place] [address]- 1335 Jun, [facility] [place] [facility] [address] [id number] [place] [address]- 8020 Jun, [facility] [place] [facility] [address] [id number] [place] [address]- 1661 26 May, 2012 [facility] [place] [facility] [address] [id number] [place] [address]- 0274 24 May, 2012 [facility] [place] [facility] [address] [id number] [place] [address]- 7806 May, [facility] [place] [facility] [address] [id number] [place] [address]- 9444 Apr, [facility] [place] [facility] [address] [id number] [place] [address]- 5192 Apr, [facility] [place] [facility] [address] [id number] [place] [address]- 2857 Apr, [facility] [place] [facility] [address] [id number] [place] [address]- 5344 Apr, [facility] [place] [facility] [address] [id number] [place] [address]- 1625 Apr, [facility] [place] [facility] [address] [id number] [place] [address]- 7463 Apr, [facility] [place] [facility] [address] [id number] [place] [address]- 6688 Mar, [facility] [place] [facility] [address] [id number] [place] [address]- 5470 Mar, [facility] [place] [facility] [address] [id number] [place] [address]- 3739 Mar, [facility] [place] [facility] [address] [id number] [place] [address]- 3287 Mar, [facility] [place] [facility] [address] [id number] [place] [address]- 6346 Feb, [facility] [place] [facility] [address] [id number] [place] [address]- 0132 Feb, [facility] [place] [facility] [address] [id number] [place] [address] Feb, [facility] [address] [id number] [place] [address] Feb, [facility] [address] [id number] [place] [address] Feb, [facility] [address] [id number] [place] [address] January, [facility] [address] [id number] [place] [address] January, [facility] [address] [id number] [place] [address] January, [facility] [address] [id number] [place] [address] January, [facility] [address] [id number] [place] [address] January, [facility] [address] [id number] [place] [address] January, [facility] [address] [id number] [place] [address] Dec, [facility] [address] [id number] [place] [address] Dec, [facility] [address] [id number] [place] [address] Dec, [facility] [address] [id number] [place] [address] Dec, [facility] [address] [id number] [place] [address] Dec, [facility] [address] [id number] [place] [address] Nov, [facility] [address] [id number] [place] [address] Nov, [facility] [place] [facility] [address] [id number] [place] [address]697 12 Nov, 2011 [facility] [place] [facility] [address] [id number] [place] [address]- [address] 07 Nov, 2011 [facility] [place] [facility] [address] [id number] [place] [address] 29 Oct, 2011 [facility] [place] [facility] [address] [id number] [place] [address]- 1573 28 Oct, 2011 [facility] [place] [facility] [address] [id number] [place] [address] 24 Oct, 2011 [facility] [place] [facility] [address] [id number] [place] [address] 13 Oct, 2011 [facility] [place] [facility] [address] [id number] [place] [address] 08 Oct, 2011 [facility] [place] [facility] [address] [id number] [place] [address]647 Sep, [facility] [place] [facility] [address] [id number] [place] [address] Sep, [facility] [place] [facility] [address] [id number] [place] [address] 119[address] Sep, [facility] [place] [facility] [address] [id number] [place] [address] Sep, [facility] [place] [facility] [address] [id number], [place] [address] Sep, [facility] [place] [facility] [address] [id number] [place] [address] Sep, [facility] [place] [facility] [address] [id number] [place] [address]- 67[address] Aug, [facility] [place] [facility] [address] [id number] [place] [address]261 Aug, [facility] [place] [facility] [address] [id number] [place] [address] Aug, [facility] [place] [facility] [address] [id number] [place] [address] Jul, [facility] [place] [facility] [address] [id number] [place] [address] Jul, [facility] [place] [facility] [address] [id number] [place] [address]758 Jul, [facility] [place] [facility] [address] [id number] [place] [address]- 67[address] Jul, [facility] [place] [facility] [address] [id number] [place] [address] Jun, [facility] [place] [facility] [address] [id number] [place] [address]- 7086 Jun, [facility] [place] [facility] [address] [id number] [place] [address]- 6164 Jun, [facility] [place] [facility] [address] [id number] [place] [address]- 3320 Jun, [facility] [place] [facility] [address] [id number] [place] [address]- [address]293 Jun, [facility] [place] [facility] [address] [id number] [place] [address] 3440 Jun, [facility] [place] [facility] [address] [id number] [place] [address] Mar, [facility] [place] [facility] [address] [id number] [place] [address] 1580 Dec, [facility] [place] [facility] [address] [id number] [place] [address]007 Dec, [facility] [place] [facility] [address] [id number] [place] [address] Nov, [facility] [place] [facility] [address] [id number] [place] [address] 16 Nov, 2010 [facility] [place] [facility] [address] [id number] [place] [address] 9420 10 Sep, 2010 [facility] [address] [id number] [place] [address]- 7436 31 Aug, 2010 [facility] [place] [facility] [address] [id number] [place] [address] 2546 Aug, [facility] [place] [facility] [address] [id number] [place] [address] 1746 Aug, [facility] [address] [id number] [place] [address] 2549 29 Aug, 2010 [facility] [place] [facility] [address] [id number] [place] [address]- [address]676 Aug, [facility] [address] [id number] [place] [address]- [address]33 [address], [address] [facility] [address] [id number] [place] [address] 78[address] Aug, [facility] [address] [id number] [place] [address]- [address] Aug, [facility] [place] [facility] [address] [id number] [place] [address] 8119 Aug, [facility] [place] [facility] [address] [id number] [place] [address]- 8550 Aug, [facility] [place] [facility] [address] [id number] [place] [address] Aug, [facility] [place] [facility] [address] [id number] [place] [address]- [address]656 Aug, [facility] [place] [facility] [address] [id number] [place] [address] 2546 Jul, [facility] [place] [facility] [address] [id number] [place] [address] 2548 Jul, [facility] [place] [facility] [address] [id number], [place] [address]- [address] 30 Jul, 2010 [facility] [place] [facility] [address] [id number] [place] [address]- [address]33 17 Jul, 2010 [facility] [place] [facility] [address] [id number] [place] [address]- 7637 08 Jul, 2010 [facility] [place] [facility] [address] [id number] [place] [address]- 2852 Jul, [facility] [place] [facility] [address] [id number] [place] [address]- 4353 24 Jun, 2010 [facility] [place] [facility] [address] [id number] [place] [address]- 2119 Jun, [facility] [place] [facility] [address] [id number] [place] [address]- [address]32 Jun, [facility] [place] [facility] [address] [id number] [place] [address]- 4171 Jun, [facility] [place] [facility] [address] [id number] [place] [address]- 0083 16 Apr, 2010 [facility] [place] [facility] [address] [id number], [place] [address]- [address] Mar, [facility] [place] [facility] [address] [id number] [place] [address]- 0449 Feb, [facility] [place] [facility] [address] [id number], [place] [address]- [address] January, [facility] [place] [facility] [address] [id number] [address] 15 Dec, 2009 [facility] [place] [facility] [address] [id number] [place] [address] Nov, [facility] [place] [facility] [address] [id number] [place] [address] 31 Aug, 2009 [facility] [place] [facility] [address] [id number] [place] [address] Aug, [facility] [place] [facility] [id number] [address] 07 Aug, 2009 [facility] [id number], [place] [address] Jul, [facility] [id number], [place] [address] Jul, [facility] [id number] [place] [address] Jul, [facility] [id number] [address] Jun, [facility] [id number] [place] [address] Jun, [facility] [id number] [address] Jun, [facility] [id number] [place] [address] Jun, [facility] [address], [place] [address] Jun, [facility] [id number] [place] [address] Jun, [facility] [id number], [place] [address] Apr, [facility] [address], [place] [address] Apr, [facility] [address], [place] [address] Feb, [facility] [address], [place] [address] January, [facility] [address], [place] [address] Dec, IMMUNIZATIONS No Known Immunizations SOCIAL HISTORY Never Assessed REASON FOR VISIT valium/charlyien 02/07/2018 PLAN OF CARE VITAL SIGNS MEDICATIONS Medication Instructions Dosage Frequency Start Date End Date Duration Status Valium 5 mg Orally Twice a day as needed for anxiety 1 tablet Oct, 30 days Active Ambien 10 mg Orally at bedtime as needed for sleep 1 tablet Nov, 30 days Active RESULTS No Results [...] 2009 Surgical History colonoscopy 2009 ([place]), 2013 ([place]) Surgical History heart cath: CAD w/ [...] History inability to urinate 09/16/15 Hospitalization History [facility] early Hospitalization History hyperkalemia 10/2017 Hospitalization History fluid in lung
--- OUTSIDE RECORDS SUMMARY | 2018-08-08 14:15 | XMS REPORT ---
Author Author ROSELINE LUIS Organization [facility] Address [address] [place] [address] Care Team Providers Care Pharmaceutical Process Engineer Name Role Phone ROSELINE LUIS Unavailable PROBLEMS Type Condition ICD9-CM Code ISU98-CO Code Onset Dates Condition Status SNOMED Code Problem Chronic lymphocytic leukemia C91.10 Active 65264617 Problem Lymphocytosis D72.820 Active 79843389 Problem Eye exam abnormal R93.8 Active 848363490 Problem Eustachian tube dysfunction, unspecified laterality H69.80 Active 88388551 Problem Essential hypertension I10 Active 27181120 Problem Dysuria R30.0 Active 12698228 Problem Diabetic polyneuropathy associated with type 2 diabetes mellitus E11.42 Active 25060431 Problem Cough R05 Active 13176422 Problem Polyneuropathy associated with underlying disease G63 Active 580276385 Problem Retinal edema H35.81 Active 7182295 Problem Bilateral primary osteoarthritis of knee M17.0 Active 074085762 Problem Primary osteoarthritis of right knee M17.11 Active 536541269484213 Problem Pure hypercholesterolemia E78.00 Active 063988569 Problem DM neuro manif type II E11.49 Active 09675887 Problem Benign prostatic hyperplasia with lower urinary tract symptoms, unspecified morphology N40.1 Active 655066216 Problem Hypokalemia E87.6 Active 24398736 Problem 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 Active 381166180 Problem Anemia of chronic illness D63.8 Active 428098465 Problem Bipolar disorder, in partial remission, most recent episode depressed F31.75 Active 22961642 Problem Falling R29.6 Active 559584653 Problem Leukocytosis D72.829 Active 056474546 Problem Reactive airway disease J45.909 Active 971876555246 Problem Diabetes E11.9 Active 67926484 Problem Chronic pain G89.29 Active 61899627 Problem Anxiety F41.9 Active 70297880 Problem Morbid obesity E66.01 Active 572618467 Problem Bipolar I disorder, most recent episode (or current) mixed, moderate F31.62 Active 92318901 Problem Insomnia, unspecified type G47.00 Active 778325200 ALLERGIES No Information ENCOUNTERS Encounter Location Date Diagnosis [place] [address] [address] Jun, [place] [address] [address] Apr, Chronic pain G89.29 [place] [address] [address]256- [address]15 Apr, Primary osteoarthritis of right knee M17.11 [place] [address] [address]- [address] Mar, [place] [address] [address]- [address] Mar, BMI 50.0-59.9, adult Z68.43 and Bipolar disorder, in partial remission, most recent episode depressed F31.75 [place] [address] [address] Mar, Diabetes E11.9 ; Pure hypercholesterolemia E78.00 ; Essential hypertension I10 ; Nausea with vomiting, unspecified R11.2 and Headache, unspecified headache type R51 [place] [address] [address]- [address] Mar, Bipolar I disorder, most recent episode (or current) mixed, moderate F31.62 [place] [address] [place] [id number] [place] [address] 36228- 2679 Mar, Bipolar I disorder, most recent episode (or current) mixed, moderate F31.62 [place] [address] 63421- 9813 Mar, Chronic pain G89.29 [place] [address] 08205- 4055 Mar, Bipolar I disorder, most recent episode (or current) mixed, moderate F31.62 [facility] [id number] [place] [address] 62822- 2916 18 Feb, 2018 Bipolar I disorder, most recent episode (or current) mixed, moderate F31.62 [facility] [address] [place] [id number] [place] [address] 06860- 7008 14 Feb, 2018 Chronic pain G89.29 [facility] [address] [place] [id number] [place] [address] 32149- 5477 06 Feb, 2018 Decubitus ulcer of right foot, stage 3 L89.893 and BMI 50.0- 59.9, adult Z68.43 [place] [address] [place] [id number] [place] [address] 75127- 5468 Feb, Bipolar I disorder, most recent episode (or current) mixed, moderate F31.62 [place] [address] [place] [id number] [place] [address] 27518- 3024 Feb, [place] [address] [place] [id number] [place] [address] 65033- 3313 January, [facility] [address] [place] [id number] [place] [address] 76722- 8032 January, Chronic pain G89.29 [facility] [address] [place] [id number] [place] [address] 14595- 4127 January, Bipolar I disorder, most recent episode (or current) mixed, moderate F31.62 [place] [id number] [place] [address] 72409- 0743 January, Bipolar I disorder, most recent episode (or current) mixed, moderate F31.62 [place] [id number] [place] [address] 28476- 7959 Dec, Bipolar I disorder, most recent episode (or current) mixed, moderate F31.62 and BMI 50.0-59.9, adult Z68.43 [facility] [id number] [place] [address] 32209- 0462 Dec, Bipolar I disorder, most recent episode (or current) mixed, moderate F31.62 [place] [address] [place] [id number] [place] [address] 65851- 4615 Dec, Chronic pain G89.29 [facility] [address] [place] [id number] [place] [address] 50404- 5183 Dec, DM neuro manif type II E11.49 ; Right flank pain R10.9 ; penitentiary 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 Z79.891 ; Encounter for medication monitoring Z51.81 and BMI 50.0-59.9, adult Z68.43 [place] [address] [place] [id number] [place] [address] 94487- 1855 Dec, Bipolar I disorder, most recent episode (or current) mixed, moderate F31.62 [place] [address] [place] [id number] [place] [address] 30649- 3361 Nov, Bipolar I disorder, most recent episode (or current) mixed, moderate F31.62 [place] [address] [place] [id number] [place] [address] 12367- 8420 Nov, Chronic pain G89.29 [place] [address] [place] [id number] [place] [address] 50499- 8569 Nov, Bipolar I disorder, most recent episode (or current) mixed, moderate F31.62 [place] [address] [place] [id number] [place] [address] 93867- 5180 Nov, Hypokalemia E87.6 [place] [address] [place] [id number] [place] [address] 37679- 8405 Nov, Bipolar I disorder, most recent episode (or current) mixed, moderate F31.62 [place] [address] [place] [id number] [place] [address] 92622- 5954 Oct, Chronic pain G89.29 [place] [address] [place] [id number] [place] [address] 56175- 0531 Oct, BMI 50.0-59.9, adult Z68.43 and Bipolar I disorder, most recent episode (or current) mixed, moderate F31.62 [facility] [id number] [place] [address] 48548- 1208 Oct, Bipolar I disorder, most recent episode (or current) mixed, moderate F31.62 [facility] [address] [place] [id number] [place] [address] 90445- 8862 Oct, [facility] [address] [place] [id number] [place] [address] 18065- 6305 Oct, Hypokalemia E87.6 [place] [address] 78426- 6770 Oct, DM neuro manif type II E11.49 [place] [address] [place] [id number] [place] [address] 85238- 9013 Oct, Bipolar I disorder, most recent episode (or current) mixed, moderate F31.62 [place] [address] [place] [id number] [place] [address] 43750- 8995 Oct, Bipolar I disorder, most recent episode (or current) mixed, moderate F31.62 [place] [address] [place] [id number] [place] [address] 23916- 4772 Oct, Hyperkalemia E87.5 ; Falling R29.6 ; BMI 50.0-59.9, adult Z68.43 and Acute left ankle pain M25.572 [place] [address] [place] [id number] [place] [address] 86240- 4624 Oct, DM neuro manif type II E11.49 [place] [address] [place] [id number] [place] [address] 57772- 0949 Oct, [facility] [address] [place] [id number] [place] [address] 84580- 2765 Sep, Chronic pain G89.29 [place] [address] [place] [id number] [place] [address] 07369- 3037 Sep, [place] [address] [place] [id number] [place] [address] 45080- 6999 Sep, Bilateral primary osteoarthritis of knee M17.0 [place] [address] [place] [id number] [place] [address] 67389- 3831 Sep, Generalized edema R60.1 [place] [address] [place] [id number] [place] [address] 57232- 5352 Sep, Bipolar I disorder, most recent episode (or current) mixed, moderate F31.62 [place] [address] [place] [id number] [place] [address] 68690- 1444 15 Sep, 2017 Hypoxia R09.02 ; Other hypervolemia E87.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 ; Anemia of chronic illness D63.8 and BMI 50.0- 59.9, adult Z68.43 [place] [address] [place] [id number] [place] [address] 49265- 2381 Sep, [place] [address] 08751- 8801 Sep, Bipolar I disorder, most recent episode (or current) mixed, moderate F31.62 [place] [address] [place] [id number] [place] [address] 28493- 5092 Aug, Chronic pain G89.29 [place] [address] [place] [id number] [place] [address] 89131- 6190 Aug, Generalized edema R60.1 [place] [address] [place] [id number] [place] [address] 14084- 6142 Aug, [place] [address] 30788- 9867 Aug, [place] [address] [place] [id number] [place] [address] 98489- 6381 14 Aug, 2017 Bipolar I disorder, most recent episode (or current) mixed, moderate F31.62 [facility] [id number] [place] [address] 98725- 5081 Aug, Bipolar I disorder, most recent episode (or current) mixed, moderate F31.62 [facility] [address] [place] [id number] [place] [address] 31312- 1088 Aug, Chronic pain G89.29 [facility] [address] [place] [id number] [place] [address] 89990- 4439 Jul, Bipolar I disorder, most recent episode (or current) mixed, moderate F31.62 [place] [address] [place] [id number] [place] [address] 257937- 5142 Jul, Bipolar I disorder, most recent episode (or current) mixed, moderate F31.62 and BMI 60.0-69.9, adult Z68.44 [place] [address] [place] [id number] [place] [address] 52154- 8483 Jul, Bipolar I disorder, most recent episode (or current) mixed, moderate F31.62 [place] [address] [place] [id number] [place] [address] 68562- 6031 Jul, Chronic pain G89.29 [facility] [address] [place] [id number] [place] [address] 04607- 4237 Jul, Bipolar I disorder, most recent episode (or current) mixed, moderate F31.62 [place] [address] [place] [id number] [place] [address] 66146- 1818 Jun, Polyneuropathy associated with underlying disease G63 and Diabetes E11.9 [facility] [address] [place] [id number] [place] [address] 70642- 0192 Jun, Bipolar I disorder, most recent episode (or current) mixed, moderate F31.62 [facility] [address] [place] [id number] [place] [address] 33592- 2108 Jun, Chronic pain G89.29 [facility] [address] [place] [address]- 3187 27 May, 2017 Bipolar I disorder, most recent episode (or current) mixed, moderate F31.62 [facility] [address] [place] [id number] [place] [address] 56557- 6308 21 May, 2017 Bipolar I disorder, most recent episode (or current) mixed, moderate F31.62 [facility] [address] [place] [id number] [place] [address] 34864- 3259 20 May, 2017 Diabetic polyneuropathy associated with type 2 diabetes mellitus E11.42 [facility] [id number] [place] [address] 04391- 8377 18 May, 2017 Bipolar I disorder, most recent episode (or current) mixed, moderate F31.62 [facility] [address] [place] [id number] [place] [address] 43873- 8049 13 May, 2017 Bipolar I disorder, most recent episode (or current) mixed, moderate F31.62 [facility] [address] [place] [id number] [place] [address] 30245- 6138 May, Chronic pain G89.29 [facility] [address] [place] [id number] [place] [address] 44992- 0611 Apr, Bipolar I disorder, most recent episode (or current) mixed, moderate F31.62 [facility] [address] [place] [id number] [place] [address] 11763- 9473 Apr, [facility] [address] [place] [id number] [place] [address] 37121- 1828 Apr, Chronic pain G89.29 and DM neuro manif type II E11.49 [facility] [address] [place] [id number] [place] [address] 44268- 8802 Apr, [facility] [address] [place] [id number] [place] [address] 75283- 4049 Apr, Bipolar I disorder, most recent episode (or current) mixed, moderate F31.62 [facility] [address] [place] [id number] [place] [address] 16450- 9206 Apr, Chronic pain G89.29 [facility] [id number] [place] [address] 01500- 4533 Apr, Iliotibial band syndrome, left M76.32 [facility] [id number] [place] [address] 09838- 2944 Apr, Bipolar I disorder, most recent episode (or current) mixed, moderate F31.62 [facility] [address] [place] [id number] [place] [address] 75496- 3834 Mar, Bipolar I disorder, most recent episode (or current) mixed, moderate F31.62 [facility] [address] [place] [id number] [place] [address] 18150- 2038 Mar, Bipolar I disorder, most recent episode (or current) mixed, moderate F31.62 [facility] [address] [place] [id number] [place] [address] 04976- 8082 Mar, [facility] [address] [place] [id number] [place] [address] 22269- 9669 Mar, Bipolar I disorder, most recent episode (or current) mixed, moderate F31.62 [facility] [id number] [place] [address] 18603- 6713 Mar, Chronic pain G89.29 [facility] [id number] [place] [address] 12017- 6050 Mar, Bipolar I disorder, most recent episode (or current) mixed, moderate F31.62 [facility] [address] [address]- 8983 Mar, Bipolar I disorder, most recent episode (or current) mixed, moderate F31.62 [facility] [address] [place] [address] 40701- 8873 Mar, Acute pain of left knee M25.562 ; Left hip pain M25.552 ; Generalized edema R60.1 and Tongue swelling R22.0 [place] [id number] [place] [address] 51793- 1774 Mar, [facility] [address] [place] [id number] [place] [address] 75082- 8550 Feb, Chronic pain G89.29 [facility] [address] [place] [id number] [place] [address] 01376- 2110 Feb, Diabetes E11.9 [facility] [address] [place] [id number] [place] [address] 52749- 4501 January, Chronic pain G89.29 [facility] [address] [place] [id number] [place] [address] 12615- 6565 January, [facility] [address] [place] [id number] [place] [address] 14271- 6493 January, Bipolar I disorder, most recent episode (or current) mixed, moderate F31.62 [facility] [address] [place] [id number] [place] [address] 36155- 1609 Dec, Bipolar I disorder, most recent episode (or current) mixed, moderate F31.62 [facility] [address] [place] [id number] [place] [address] 77796- 0643 Dec, Chronic pain G89.29 [facility] [address] [place] [id number] [place] [address] 29793- 0983 Dec, Bipolar I disorder, most recent episode (or current) mixed, moderate F31.62 [facility] [id number] [place] [address] 58907- 1199 Dec, Diabetes E11.9 ; Essential hypertension I10 ; Chronic pain G89.29 and Morbid obesity E66.01 [facility] [address] [place] [id number] [place] [address] 23670- 0403 Dec, [facility] [address] [place] [id number] [place] [address] 00875- 7418 Dec, Bipolar I disorder, most recent episode (or current) mixed, moderate F31.62 [facility] [address] [address]- 4876 Dec, Bipolar I disorder, most recent episode (or current) mixed, moderate F31.62 [facility] [id number] [place] [address] 99437- 9056 Nov, Chronic pain G89.29 [facility] [id number] [place] [address] 17978- 1106 Nov, Bipolar I disorder, most recent episode (or current) mixed, moderate F31.62 [facility] [id number] [place] [address] 28612- 2006 Nov, [facility] [address] [place] [id number] [place] [address] 90015- 5306 Nov, Bipolar I disorder, most recent episode (or current) mixed, moderate F31.62 [facility] [id number] [place] [address] 11097- 2016 Nov, Bipolar I disorder, most recent episode (or current) mixed, moderate F31.62 [facility] [id number] [place] [address] 52532- 6876 Nov, [facility] [id number] [place] [address] 64143- 5776 Nov, [facility] [address] [address]- 3776 Nov, [facility] [address] [place] [id number] [place] [address] 65983- 9416 Oct, Chronic pain G89.29 [facility] [id number] [place] [address] 69312- 2676 Oct, Bipolar I disorder, most recent episode (or current) mixed, moderate F31.62 [facility] [address] [address]- 7486 Oct, [facility] [address] [place] [id number] [address]- 6921 15 Oct, 2016 Chronic pain G89.29 ; Diabetes E11.9 ; Anxiety F41.9 and 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 [facility] [address] [place] [id number] [place] [address] 70275- 9838 10 Oct, 2016 [facility] [address] [place] [id number] [place] [address] 12087- 6765 06 Oct, 2016 Diabetes E11.9 [facility] [address] [place] [id number] [place] [address] 67394- 9969 Oct, Bipolar I disorder, most recent episode (or current) mixed, moderate F31.62 [facility] [address] [place] [id number] [place] [address] 79369- 6946 Sep, Chronic pain G89.29 [facility] [address] [place] [id number] [place] [address] 36571- 8026 Sep, Chronic pain G89.29 [facility] [address] [place] [id number] [place] [address] 97437- 6432 Aug, Chronic pain G89.29 [facility] [address] [place] [id number] [place] [address] 84157- 1608 Jul, [facility] [address] [place] [id number] [place] [address] 79703- 4024 Jul, Diabetes E11.9 [facility] [address] [place] [id number] [place] [address] 69616- 4522 Jul, Chronic pain G89.29 [facility] [address] [place] [id number] [place] [address] 53902- 7899 Jul, Bipolar I disorder, most recent episode (or current) mixed, moderate F31.62 [facility] [id number] [place] [address] 09954- 2255 Jun, Bipolar I disorder, most recent episode (or current) mixed, moderate F31.62 [facility] [address], [place] [address]- 7449 Jun, [facility] [address] [place] [id number] [place] [address] 58506- 4533 Jun, Bipolar I disorder, most recent episode (or current) mixed, moderate F31.62 [facility] [address] [place] [id number] [place] [address] 48701- 5066 30 May, 2016 Insomnia, unspecified type G47.00 [facility] [address] [place] [id number] [place] [address] 35780- 4399 May, Bipolar I disorder, most recent episode (or current) mixed, moderate F31.62 [place] [address] [place] [id number] [place] [address] 19751- 5302 14 May, 2016 [place] [address] [place] [id number] [place] [address] 22289- 3143 May, Bipolar I disorder, most recent episode (or current) mixed, moderate F31.62 [place] [address] [place] [id number] [place] [address] 91450- 9050 May, Diabetes E11.9 and Essential hypertension I10 [place] [address] [place] [id number] [place] [address] 16444- 5935 Apr, Chronic pain G89.29 [place] [address] [place] [id number] [place] [address] [phone] Apr, Bipolar I disorder, most recent episode (or current) mixed, moderate F31.62 [facility] [id number] [place] [address] [phone]- [phone] Apr, [facility] [id number] [place] [address] [phone]- 1324 Apr, [facility] [id number] [place] [address] [id number]- 7425 Mar, Chronic pain G89.29 ; Headache, unspecified headache type R51 ; Neuropathy G62.9 ; Pain of right hip joint M25.551 and Essential hypertension I10 [facility] [id number] [place] [address] 88569- 0643 Mar, Chronic pain G89.29 [facility] [id number] [place] [address] [id number] Mar, Bipolar I disorder, most recent episode (or current) mixed, moderate F31.62 [facility] [id number] [place] [address] [phone]- [phone] Feb, Bipolar I disorder, most recent episode (or current) mixed, moderate F31.62 and Insomnia, unspecified type G47.00 [facility] [id number] [place] [address] 15550- 4062 Feb, Chronic pain G89.29 [facility] [id number] [place] [address] 24418- [phone] Feb, Bipolar I disorder, most recent episode (or current) mixed, moderate F31.62 [facility] [id number] [place] [address] [id number]- [phone] January, Bipolar I disorder, most recent episode (or current) mixed, moderate F31.62 [facility] [id number] [place] [address] [phone]- [phone] January, Chronic pain G89.29 [facility] [id number] [place] [address] 83380- [phone] January, Chronic pain G89.29 and Essential hypertension I10 [facility] [id number] [place] [address] 51906- 6032 January, Bipolar I disorder, most recent episode (or current) mixed, moderate F31.62 [facility] [id number] [place] [address] [phone]- 8812 Dec, [facility] [id number] [place], [place] [address] 81671- 7029 Dec, [facility] [id number] [place] [address] 87731- 6445 Dec, [facility] [id number] [place] [address] 28805- 9515 Dec, [facility] [id number] [place] [address] 01697- 4216 Nov, Reactive airway disease J45.909 [facility] [address] 99040- 6153 Nov, [facility] [address] 03715- 6945 Nov, [facility] [address] 30298- 9835 Nov, [facility] [address] 00918- 1581 Nov, [facility] [id number] [place] [address] 53544- 2111 Nov, Onychomycosis B35.1 ; Hammertoe M20.40 ; Tyner or callus L84 and DM neuro manif type II E11.49 [facility] [id number] [place] [address] 49058- 8302 Nov, Chronic pain G89.29 ; Leukocytosis D72.829 and Diabetes E11.9 [facility] [id number] [place] [address] 95767- 0149 Nov, [facility] [id number] [place] [address] 67575- 0255 Oct, Bronchitis J40 [facility] [address] 74741- 4021 Oct, [facility] [id number] [place] [address] 68618- 8760 Oct, [facility] [address] 98845- 8986 Oct, Mastoiditis, unspecified laterality H70.90 and Type 2 diabetes mellitus with complication E11.8 [facility] [id number] [place] [address] 46303- 0065 Sep, [facility] [id number] [place] [address] 40646- 3879 Sep, Dysuria R30.0 ; Cough R05 ; Benign prostatic hyperplasia with lower urinary tract symptoms, unspecified morphology N40.1 ; Hypokalemia E87.6 and Eustachian tube dysfunction, unspecified laterality H69.80 [facility] [id number] [place] [address] 72101- 1304 Sep, Moderate mixed bipolar I disorder F31.62 [facility] [id number] [place] [address] 02429- 8579 Sep, Hypokalemia E87.6 [facility] [id number] [place] [address] 91973- 3946 Sep, [facility] [id number] [place] [address] 88651- 2654 Sep, Upper respiratory tract infection, unspecified type J06.9 [facility] [id number] [place] [address] 16444- 4321 Aug, [facility] [id number] [place] [address] 71486- 8077 Aug, Dysuria R30.0 [facility] [id number] [place] [address] 15252- 1640 Aug, [facility] [id number] [place] [address] 40681- 6435 Jul, [facility] [id number] [place] [address] 13239- 8373 Jul, [facility] [id number] [place] [address] 12390- 4595 Jul, [facility] [address] [address]- 2773 Jul, [facility] [id number] [place] [address] 68300- 6506 Jun, [facility] [address], [place] [address]- 6132 Jun, [facility] [id number] [place] [address] 91812- 6693 Jun, [facility] [id number] [place] [address] 65630- 2088 May, [facility] [id number] [place] [address] 761982- 8950 May, Bipolar I disorder, most recent episode (or current) mixed, moderate 296.62 [facility] [id number] [place] [address] 41472- 3504 16 May, 2015 [facility] [id number] [place] [address] 38940- 4377 May, Bipolar I disorder, most recent episode (or current) mixed, moderate 296.62 and Major depressive disorder, recurrent episode, severe, specified as with psychotic behavior 296.34 [facility] [address], [place] [address]- 5143 May, Bipolar I disorder, most recent episode (or current) mixed, moderate 296.62 [facility] [id number] [place] [address] 00601- 5932 May, [facility] [id number] [place] [address] 73666- 8210 Apr, [facility] [id number] [place] [address] 27092- 8813 Apr, [facility] [address], [place] [address]- 3029 Apr, Unspecified disorder of kidney and ureter 593.9 and Diabetes mellitus type 2, uncontrolled 250.02 [facility] [address], [place] [address]- 3709 Apr, [facility] [address], [place] [address]- 0138 Apr, [facility] [address], [place] [address]- 7340 Apr, [facility] [id number] [place] [address] 08922- 1925 Apr, [facility] [address], [place] [address]- 5716 Apr, Diabetes mellitus type II, uncontrolled 250.02 [facility] [id number] [place] [address] 47030- 8242 Apr, [facility] [id number] [place] [address] 52760- 3543 Mar, [facility] [id number] [place] [address] 17617- 0032 Mar, [facility] [id number] [place] [address] 25385- 4044 Mar, [facility] [address], [place] [address]- 7924 Mar, Major depressive disorder, recurrent episode, severe, specified as with psychotic behavior 296.34 and Bipolar I disorder, most recent episode (or current) mixed, moderate 296.62 [facility] [address], [place] [address]- 6631 Mar, Diabetes 250.00 ; Anuria 788.5 ; Nausea and vomiting 787.01 and Diarrhea 787.91 [facility] [address], [place] [address]- 4462 Mar, Diabetes 250.00 [facility] [address], [place] [address]- 3257 Mar, [facility] [id number] [address]- 5052 Mar, Diabetes 250.00 [facility] [id number] [place] [address] 67066- 1443 Mar, [facility] [id number] [place] [address] 77854- 7616 Mar, [facility] [id number] [place] [address] 50219- 2655 Mar, [facility] [id number] [place] [address] 79209- 0827 Mar, [facility] [id number] [place] [address] 58380- 7600 Mar, Bipolar I disorder, most recent episode (or current) mixed, moderate 296.62 and Major depressive disorder, recurrent episode, severe, specified as with psychotic behavior 296.34 [facility] [address] [place] [id number] [place] [address] 19900- 6594 Mar, Magnesium deficiency 275.2 ; Hypokalemia 276.8 ; Nausea & vomiting 787.01 and Diabetes mellitus type 2, uncontrolled 250.02 [facility] [address] [place] [id number] [place] [address] 60946- 5037 Feb, [facility] [address] [place] [id number] [place] [address] 09445- 3326 Feb, Bipolar I disorder, most recent episode (or current) mixed, moderate 296.62 [facility] [id number] [place] [address] 79389- 0880 Feb, Nausea and vomiting 787.01 ; Left elbow pain 719.42 ; Anuria 788.5 and Diabetes 250.00 [facility] [id number] [place] [address] 03719- 5036 Feb, [facility] [id number] [place] [address] 93199- 2603 Feb, Hypopotassemia 276.8 and Hypokalemia 276.8 [facility] [address], [place] [address]- 5671 Feb, Hypopotassemia 276.8 and Hypokalemia 276.8 [facility] [address], [place] [address]- 8792 Feb, Seborrheic keratoses 702.19 [facility] [id number] [place] [address] 37968- 8479 Feb, Hypopotassemia 276.8 and Low magnesium levels 275.2 [facility] [id number] [place] [address] 33007- 7290 January, [facility] [id number] [place] [address] 55562- 6947 January, [facility] [id number] [place] [address] 36311- 7106 January, [facility] [id number] [place] [address] 90523- 4796 January, Scalp lesion 709.9 [facility] [id number] [place] [address] 63795- 9296 January, [facility] [id number] [place] [address] 71928- 2077 Dec, Tear of medial cartilage or meniscus of knee, current 836.0 and 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 [facility] [address], [place] [address]- 2257 Dec, [facility] [address], [place] [address]- 6043 Dec, [facility] [id number] [place] [address] 23835- 3760 Dec, Squamous cell carcinoma, 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 [facility] [id number] [place] [address] 54550- 8161 14 Dec, 2014 [facility] [place] [facility] [address] [id number] [place] [address]- 9989 Dec, [facility] [place] [facility] [address] [id number] [place] [address]- 6386 Nov, [facility] [place] [facility] [address] [id number] [place] [address]- 8228 Nov, [facility] [place] [facility] [address] [id number] [place] [address]- 6494 Nov, [facility] [place] [facility] [address] [id number] [place] [address]- 2309 Nov, [facility] [place] [facility] [address] [id number] [place] [address]- 8195 Nov, [facility] [place] [facility] [address] [id number] [place] [address]- 4668 Nov, [facility] [place] [facility] [address] [id number] [place] [address]- 2119 Nov, [facility] [place] [facility] [address] [id number] [place] [address]- 3580 Nov, [facility] [place] [facility] [address] [id number] [place] [address]- 5554 Nov, [facility] [place] [facility] [address] [id number] [place] [address]- 7405 Nov, [facility] [place] [facility] [address] [id number] [place] [address]- 2421 Nov, [facility] [place] [facility] [address] [id number] [place] [address]- 7633 Nov, [facility] [place] [facility] [address] [id number] [place] [address]- 7478 Oct, [facility] [place] [facility] [address] [id number] [place] [address]- 8652 Oct, [facility] [place] [facility] [address] [id number], [place] [address]- 0582 Oct, 2014 [facility] [place] [facility] [address] [id number] [place] [address]- 5437 Oct, 2014 [facility] [place] [facility] [address] [id number] [place] [address]- 2665 Oct, 2014 [facility] [place] [facility] [address] [id number] [place] [address]- 9768 Oct, 2014 [facility] [place] [facility] [address] [id number] [place] [address]- 5677 Oct, 2014 [facility] [place] [facility] [address] [id number] [place] [address]- 7425 Oct, 2014 [facility] [place] [facility] [address] [id number] [place] [address]- 9177 Oct, 2014 [facility] [place] [facility] [address] [facility] [id number] [place] [address]- 0121 Sep, [facility] [place] [facility] [address] [id number] [address]- 2272 Sep, [facility] [place] [facility] [address] [id number] [place] [address]- 3013 Sep, [facility] [place] [facility] [address] [facility] [id number] [place] [address]- 1610 Sep, [facility] [place] [facility] [address] [facility] [id number] [place] [address]- 0974 Sep, [facility] [place] [facility] [address] [id number], [place] [address]- 6013 Sep, [facility] [place] [facility] [address] [id number], [place] [address]- 0733 Sep, [facility] [place] [facility] [address] [facility] [id number], [place] [address]- 6173 Sep, [facility] [place] [facility] [address] [facility] [id number] [address]- 0083 Sep, [facility] [place] [facility] [address] [id number] [place] [address]- 4929 Sep, [facility] [place] [facility] [address] [id number] [place] [address]- 0444 Sep, [facility] [place] [facility] [address] [id number] [place] [address]- 6334 Sep, [facility] [place] [facility] [address] [id number] [place] [address]- 0148 Sep, [facility] [place] [facility] [address] [id number] [place] [address]- 5122 Sep, [facility] [place] [facility] [address] [id number] [place] [address]- 5102 Sep, [facility] [place] [facility] [address] [id number] [place] [address]- 6259 Sep, [facility] [place] [facility] [address] [id number] [place] [address]- 3596 Aug, [facility] [place] [facility] [address] [id number] [place] [address]- 1409 Aug, [facility] [place] [facility] [address] [id number] [place] [address]- 1807 Aug, [facility] [place] [facility] [address] [id number] [place] [address]- 9862 Aug, [facility] [place] [facility] [address] [id number] [place] [address]- 5208 31 Aug, 2014 [facility] [place] [facility] [address] [id number] [place] [address]- 2898 31 Aug, 2014 [facility] [place] [facility] [address] [id number] [place] [address]- 5017 17 Aug, 2014 [facility] [place] [facility] [address] [id number] [place] [address]- 8089 17 Aug, 2014 [facility] [place] [facility] [address] [id number] [place] [address]- 6491 Aug, [facility] [address] [id number] [place] [address]- 4203 Aug, [facility] [address] [id number] [place] [address]- 2599 Aug, [facility] [address] [place] [id number] Aug, [facility] [address] [id number] [place] [address]- 3470 Aug, [facility] [address] [id number] [place] [address]- 0717 Aug, [facility] [address] [id number] [place] [address]- 4809 Aug, [facility] [address] [id number] [place] [address]- 4452 Aug, [facility] [address] [id number] [place] [address]- 3244 Aug, [facility] [address] [id number] [place] [address]- 0533 Aug, [facility] [address] [id number] [place] [address]- 6378 Aug, [facility] [address] [id number] [place] [address]- 1977 Aug, [facility] [place] [facility] [address] [id number] [place] [address]- 8848 Aug, [facility] [place] [facility] [address] [id number] [place] [address]- 8822 Aug, [facility] [place] [facility] [address] [id number] [place] [address]- 3144 Aug, [facility] [place] [facility] [address] [id number] [place] [address]- 8661 Aug, [facility] [place] [facility] [address] [id number] [place] [address]- 7592 Aug, [facility] [place] [facility] [address] [id number] [place] [address]- 1219 Aug, [facility] [place] [facility] [address] [id number] [place] [address]- 5788 Aug, [facility] [place] [facility] [address] [facility] [id number] [place] [address]- 5186 Aug, [facility] [place] [facility] [address] [id number] [place] [address]- 0760 Aug, [facility] [place] [facility] [address] [id number] [place] [address]- 8347 Aug, [facility] [place] [facility] [address] [id number] [place] [address]- 8861 Jul, [facility] [place] [facility] [address] [facility] [id number] [place] [address]- 3790 Jul, [facility] [place] [facility] [address] [id number] [place] [address]- 1445 Jul, [facility] [place] [facility] [address] [id number] [place] [address]- 5370 Jul, [facility] [place] [facility] [address] [facility] [id number] [place] [address]- 2392 Jul, [facility] [place] [facility] [address] [id number] [place] [address]- 2256 Jul, [facility] [place] [facility] [address] [id number] [place] [address]- 9919 Jul, [facility] [place] [facility] [address] [id number] [place] [address]- 3592 Jul, [facility] [place] [facility] [address] [id number] [place] [address]- 1713 Jul, [facility] [place] [facility] [address] [facility] [id number] [place] [address]- 2461 Jul, [facility] [place] [facility] [address] [id number] [place] [address]- 4329 Jun, [facility] [place] [facility] [address] [id number] [place] [address]- 0534 Jun, [facility] [place] [facility] [address] [id number] [place] [address]- 3836 Jun, [facility] [place] [facility] [address] [id number] [place] [address]- 3404 Jun, [facility] [place] [facility] [address] [id number] [place] [address]- 8842 Jun, [facility] [place] [facility] [address] [id number] [place] [address]- 3519 Jun, [facility] [place] [facility] [address] [id number] [place] [address]- 7502 Jun, [facility] [place] [facility] [address] [id number] [place] [address]- 1982 Jun, [facility] [place] [facility] [address] [id number] [place] [address]- 3599 Jun, [facility] [place] [facility] [address] [id number] [place] [address]- 1358 Jun, [facility] [place] [facility] [address] [id number] [place] [address]- 8164 29 May, 2013 [facility] [place] [facility] [address] [id number] [place] [address]- 7567 29 Sep, 2013 [facility] [place] [facility] [address] [id number] [place] [address]- 2540 26 Sep, 2013 [facility] [place] [facility] [address] [id number] [place] [address]- 2546 26 Sep, 2013 [facility] [place] [facility] [address] [id number] [place] [address]- 2546 17 Sep, 2013 [facility] [place] [facility] [address] [id number] [place] [address]- 4646 17 Sep, 2013 [facility] [place] [facility] [address] [id number] [place] [address]- 3601 15 May, 2013 [facility] [place] [facility] [address] [id number] [place] [address]- 9631 15 May, 2013 [facility] [place] [facility] [address] [id number] [place] [address]- 2207 15 May, 2013 [facility] [place] [facility] [address] [id number] [place] [address]- 9658 15 May, 2013 [facility] [place] [facility] [address] [id number] [place] [address]- 1290 10 May, 2013 [facility] [place] [facility] [address] [id number] [place] [address]- 4917 10 May, 2013 [facility] [place] [facility] [address] [id number] [place] [address] 09 May, 2013 [facility] [place] [facility] [address] [id number] [place] [address] 09 May, 2013 [facility] [place] [facility] [address] [id number] [place] [address] May, 2013 [facility] [place] [facility] [address] [id number] [place] [address] May, 2013 [facility] [place] [facility] [address] [id number] [place] [address] Apr, [facility] [place] [facility] [address] [id number] [place] [address] Apr, [facility] [place] [facility] [address] [id number] [place] [address] Apr, [facility] [place] [facility] [address] [id number] [place] [address] Apr, [facility] [place] [facility] [address] [id number] [place] [address] Apr, [facility] [place] [facility] [address] [id number] [place] [address] Apr, [facility] [place] [facility] [address] [id number] [place] [address] Apr, [facility] [place] [facility] [address] [id number] [place] [address] Apr, [facility] [place] [facility] [address] [id number] [place] [address] Apr, [facility] [place] [facility] [address] [id number] [place] [address] Apr, [facility] [place] [facility] [address] [id number] [place] [address] 86[address] Apr, [facility] [place] [facility] [address] [id number] [place] [address]99 Apr, [facility] [place] [facility] [address] [id number] [place] [address] Apr, [facility] [place] [facility] [address] [id number] [place] [address] Apr, [facility] [place] [facility] [address] [id number] [place] [address] Apr, [facility] [place] [facility] [address] [id number] [place] [address] Mar, [facility] [place] [facility] [address] [id number] [place] [address] Mar, [facility] [place] [facility] [address] [id number] [place] [address] Mar, [facility] [place] [facility] [address] [id number] [place] [address] 120[address] Mar, [facility] [place] [facility] [address] [id number] [place] [address] Mar, [facility] [place] [facility] [address] [id number] [place] [address] 40[address] Mar, [facility] [place] [facility] [address] [id number] [place] [address]35 Mar, 2013 [facility] [place] [facility] [address] [id number] [place] [address] Mar, 2013 [facility] [place] [facility] [address] [id number] [place] [address] Mar, 2013 [facility] [place] [facility] [address] [id number] [place] [address] Mar, 2013 [facility] [place] [facility] [address] [id number] [place] [address] Mar, 2013 [facility] [place] [facility] [address] [id number] [place] [address] Mar, 2013 [facility] [place] [facility] [address] [id number] [place] [address] 8469 Mar, 2013 [facility] [place] [facility] [address] [id number] [place] [address] Mar, 2013 [facility] [place] [facility] [address] [id number] [place] [address] Mar, 2013 [facility] [place] [facility] [address] [id number] [place] [address] Mar, 2013 [facility] [place] [facility] [address] [id number] [place] [address] Mar, [facility] [place] [facility] [address] [id number] [place] [address] Mar, [facility] [place] [facility] [address] [id number] [place] [address] Feb, [facility] [place] [facility] [address] [id number] [place] [address] Feb, [facility] [place] [facility] [address] [id number] [place] [address] Feb, [facility] [place] [facility] [address] [id number] [place] [address] 16[address] Feb, [facility] [place] [facility] [address] [id number] [place] [address] Feb, [facility] [place] [facility] [address] [id number] [place] [address] Feb, [facility] [place] [facility] [address] [id number] [place] [address] Feb, [facility] [place] [facility] [address] [id number] [place] [address] Feb, [facility] [place] [facility] [address] [id number] [place] [address] 30[address] Feb, [facility] [place] [facility] [address] [id number] [place] [address] Feb, [facility] [place] [facility] [address] [id number] [place] [address] Feb, [facility] [place] [facility] [address] [id number] [place] [address]- [address] Feb, [facility] [place] [facility] [address] [id number] [place] [address] 133[address] Feb, [facility] [place] [facility] [address] [id number] [place] [address] 96[address] Feb, [facility] [place] [facility] [address] [id number] [place] [address] 84[address] January, [facility] [place] [facility] [address] [id number] [place] [address] 74[address] January, [facility] [place] [facility] [address] [id number] [place] [address] January, [facility] [place] [facility] [address] [id number] [place] [address] January, [facility] [place] [facility] [address] [id number] [place] [address] January, [facility] [place] [facility] [address] [id number] [place] [address] January, [facility] [address] [id number] [place] [address] 67[address] January, [facility] [address] [id number] [place] [address] January, [facility] [address] [id number] [place] [address] 9660 January, [facility] [address] [id number] [place] [address] 2437 January, [facility] [address] [id number] [place] [address] 2306 January, [facility] [address] [id number] [place] [address] 4345 January, [facility] [address] [id number] [place] [address] 4003 January, [facility] [address] [id number] [place] [address] 3794 January, [facility] [address] [id number] [place] [address] 1416 Dec, [facility] [address] [id number] [place] [address] 3410 Dec, [facility] [place] [facility] [address] [id number] [place] [address] 9443 Dec, [facility] [address] [id number] [place] [address] 9621 Dec, [facility] [place] [facility] [address] [id number] [place] [address] 1470 Dec, [facility] [place] [facility] [address] [id number] [place] [address] 3755 Dec, [facility] [place] [facility] [address] [id number] [place] [address] 8417 Dec, [facility] [place] [facility] [address] [id number] [place] [address]- 1070 Dec, [facility] [place] [facility] [address] [id number] [place] [address]- 2604 Dec, [facility] [place] [facility] [address] [id number] [place] [address] 4183 Dec, [facility] [place] [facility] [address] [id number] [place] [address]- 9668 Nov, [facility] [place] [facility] [address] [id number] [place] [address]- 6614 Nov, [facility] [place] [facility] [address] [id number] [place] [address]- 0660 Nov, [facility] [place] [facility] [address] [id number] [place] [address]- 1108 Nov, [facility] [place] [facility] [address] [id number] [place] [address]- 7917 Nov, [facility] [place] [facility] [address] [id number] [place] [address]- 1698 Nov, [facility] [place] [facility] [address] [id number] [place] [address]- 2164 Nov, [facility] [place] [facility] [address] [id number] [place] [address]- 7442 Nov, [facility] [place] [facility] [address] [id number] [place] [address]- 3324 Nov, [facility] [place] [facility] [address] [id number] [place] [address]- 6907 Nov, [facility] [place] [facility] [address] [id number] [place] [address] 7129 Oct, [facility] [place] [facility] [address] [id number] [place] [address]- 8358 Oct, [facility] [place] [facility] [address] [id number] [place] [address]- 4259 Oct, [facility] [place] [facility] [address] [id number] [place] [address]- 6846 Oct, [facility] [place] [facility] [address] [id number] [place] [address]- 5486 Oct, [facility] [place] [facility] [address] [id number] [place] [address]- 9916 Oct, [facility] [place] [facility] [address] [id number] [place] [address] 2546 Oct, [facility] [place] [facility] [address] [id number] [place] [address]- 8566 Oct, [facility] [place] [facility] [address] [id number] [place] [address]- 4506 Oct, [facility] [place] [facility] [address] [id number] [place] [address]- 7766 Oct, [facility] [place] [facility] [address] [id number] [place] [address]- 0538 Oct, [facility] [place] [facility] [address] [facility] [id number] [place] [address]- 6642 Oct, [facility] [place] [facility] [address] [facility] [id number] [place] [address]- 0660 Oct, [facility] [place] [facility] [address] [facility] [id number] [place] [address]- 3447 Oct, [facility] [place] [facility] [address] [id number] [place] [address]- 9213 Sep, [facility] [place] [facility] [address] [id number] [place] [address] 2546 Sep, [facility] [place] [facility] [address] [id number] [place] [address]- 2546 Sep, [facility] [place] [facility] [address] [id number], [place] [address]1 15 Sep, 2013 [facility] [place] [facility] [address] [id number] [place] [address]- 6363 14 Sep, 2013 [facility] [place] [facility] [address] [id number] [place] [address]- 5107 14 Sep, 2013 [facility] [place] [facility] [address] [id number] [place] [address]- 6291 Sep, [facility] [place] [facility] [address] [id number] [place] [address]- 4309 Sep, [facility] [place] [facility] [address] [id number] [place] [address]- 5021 Sep, [facility] [place] [facility] [address] [id number] [place] [address]- 8880 Sep, [facility] [place] [facility] [address] [id number] [place] [address]- 8692 Aug, [facility] [place] [facility] [address] [id number], [place] [address] 0[address] Aug, [facility] [place] [facility] [address] [id number] [place] [address]- 5574 Jul, [facility] [place] [facility] [address] [id number] [place] [address]- 5258 Jul, [facility] [place] [facility] [address] [id number], [place] [address]- 1392 Jul, [facility] [place] [facility] [address] [id number], [place] [address]- 8354 Jul, [facility] [place] [facility] [address] [id number] [place] [address]- 5638 Jul, [facility] [place] [facility] [address] [id number], [place] [address]- 0437 Jul, [facility] [place] [facility] [address] [id number], [place] [address]- 5336 Jul, [facility] [place] [facility] [address] [id number] [place] [address]- 6492 12 Jul, 2012 [facility] [place] [facility] [address] [id number] [place] [address]- 0525 08 Jul, 2012 [facility] [place] [facility] [address] [id number] [place] [address]- 0980 08 Jul, 2012 [facility] [place] [facility] [address] [id number] [place] [address]- 3518 07 Jul, 2012 [facility] [place] [facility] [address] [id number] [place] [address]- 9440 Jul, 2012 [facility] [place] [facility] [address] [id number] [place] [address]- 6536 Jul, 2012 [facility] [place] [facility] [address] [id number] [place] [address]- 6713 Jul, [facility] [place] [facility] [address] [id number] [place] [address]- 6403 Jul, [facility] [place] [facility] [address] [id number] [place] [address]- 9984 Jul, [facility] [place] [facility] [address] [id number] [place] [address]- 8391 Jul, [facility] [place] [facility] [address] [facility] [id number] [place] [address]- 2451 Jul, [facility] [place] [facility] [address] [id number] [place] [address]- 3179 Jul, [facility] [place] [facility] [address] [id number], [place] [address]- 6150 Jun, [facility] [place] [facility] [address] [id number] [place] [address]- 1034 Jun, [facility] [place] [facility] [address] [id number] [place] [address]- 6828 Jun, [facility] [place] [facility] [address] [id number] [place] [address]- 5345 Jun, [facility] [place] [facility] [address] [id number] [place] [address]- 4827 16 Jun, 2012 [facility] [place] [facility] [address] [id number] [place] [address]- 5995 16 Jun, 2012 [facility] [place] [facility] [address] [id number] [place] [address]- 2012 10 Jun, 2012 [facility] [place] [facility] [address] [id number] [place] [address]- 3583 10 Jun, 2012 [facility] [address] [id number] [place] [address]- 0362 Jun, 2012 [facility] [place] [facility] [address] [id number] [place] [address]- 2968 Jun, [facility] [address] [id number] [place] [address]- 2540 Jun, [facility] [place] [facility] [address] [id number] [place] [address]- 6840 26 Sep, 2012 [facility] [place] [facility] [address] [id number] [place] [address]- 9042 25 Sep, 2012 [facility] [place] [facility] [address] [id number] [place] [address]- 9609 19 Sep, 2012 [facility] [place] [facility] [address] [id number] [place] [address]- 4860 17 Sep, 2012 [facility] [place] [facility] [address] [id number], [place] [address]- 0738 11 Sep, 2012 [facility] [place] [facility] [address] [id number] [place] [address]- 2423 10 Sep, 2012 [facility] [place] [facility] [address] [id number] [place] [address]- 2460 09 Sep, 2012 [facility] [place] [facility] [address] [id number], [place] [address]- 3472 05 Sep, 2012 [facility] [place] [facility] [address] [id number], [place] [address]- 6155 Apr, [facility] [place] [facility] [address] [id number] [place] [address]- 2681 Apr, [facility] [place] [facility] [address] [id number] [place] [address]- 1431 Apr, [facility] [place] [facility] [address] [id number] [place] [address]- 5775 Apr, [facility] [place] [facility] [address] [id number] [place] [address]- 5708 Apr, [facility] [place] [facility] [address] [id number] [place] [address]- 1412 Mar, [facility] [place] [facility] [address] [id number] [place] [address]- 7060 Mar, [facility] [place] [facility] [address] [id number] [place] [address]- 1829 Mar, [facility] [place] [facility] [address] [id number] [place] [address]- 5900 Mar, [facility] [place] [facility] [address] [id number] [place] [address]- 4356 Mar, [facility] [place] [facility] [address] [id number] [place] [address]- 6654 Mar, [facility] [place] [facility] [address] [id number] [place] [address]- 9602 Mar, [facility] [place] [facility] [address] [id number] [place] [address]- 1908 Mar, [facility] [place] [facility] [address] [id number] [place] [address]- 4216 Feb, [facility] [place] [facility] [address] [id number] [place] [address]- 1404 Feb, [facility] [place] [facility] [address] [id number] [place] [address]- 0168 January, [facility] [place] [facility] [address] [id number] [place] [address]- 9276 January, [facility] [address] [id number] [place] [address]- 2647 Dec, [facility] [place] [facility] [address] [id number] [place] [address]- 3011 Dec, [facility] [address] [id number] [place] [address]- 4389 Nov, [facility] [address] [id number] [place] [address]- 7429 Nov, [facility] [address] [id number] [place] [address]- 1650 Nov, [facility] [address] [facility] [id number] [place] [address]- 8798 Nov, [facility] [address] [facility] [id number] [place] [address]- 8665 Oct, [facility] [address] [id number] [place] [address]- 2159 Oct, [facility] [address] [id number] [place] [address]- 7193 Oct, [facility] [address] [id number] [place] [address]- 1798 Oct, [facility] [address] [facility] [id number] [place] [address]- 6073 16 Oct, 2012 [facility] [address] [facility] [id number] [place] [address]- 1628 14 Oct, 2012 [facility] [place] [facility] [address] [facility] [id number] [place] [address]- 3379 08 Oct, 2012 [facility] [place] [facility] [address] [facility] [id number] [place]80 07 Oct, 2012 [facility] [place] [facility] [id number], [place] [address]- 5422 Oct, [facility] [address] [id number] [place] [address]- 7696 Sep, [facility] [address] [id number] [place] [address]- 9254 Sep, [facility] [address] [id number] [place] [address]- 5160 Sep, [facility] [address] [id number] [place] [address]- 8400 Sep, [facility] [address] [id number] [place] [address]- 6650 Sep, [facility] [address] [id number] [place] [address]- 3536 Sep, [facility] [address] [id number] [place] [address]- 4142 Sep, [facility] [address] [id number] [place] [address]- 0097 Sep, [facility] [address] [id number] [place] [address]- 9010 Aug, [facility] [address] [id number] [place] [address]- 3702 31 Aug, 2012 [facility] [address] [id number] [place] [address]- 9203 Aug, [facility] [place] [facility] [address] [id number] [place] [address]- 8176 Aug, [facility] [place] [facility] [address] [id number] [place] [address]- 2957 Aug, [facility] [place] [facility] [address] [id number] [place] [address]- 8332 Aug, [facility] [place] [facility] [address] [id number] [place] [address]- 0648 18 Aug, 2012 [facility] [place] [facility] [address] [id number] [place] [address]- 8928 Aug, [facility] [place] [facility] [address] [id number] [place] [address]- 5292 Jul, [facility] [place] [facility] [address] [id number] [place] [address]- 8989 Jul, [facility] [place] [facility] [address] [id number] [place] [address]- 8122 Jul, [facility] [place] [facility] [address] [id number] [place] [address]- 3754 Jul, [facility] [place] [facility] [address] [id number] [place] [address]- 5668 Jul, [facility] [place] [facility] [address] [id number] [place] [address]- 6981 Jul, [facility] [place] [facility] [address] [id number] [place] [address]- 0152 Jun, [facility] [place] [facility] [address] [id number] [place] [address]- 3846 Jun, [facility] [place] [facility] [address] [id number] [place] [address]- 7101 Jun, [facility] [place] [facility] [address] [id number] [place] [address]- 9024 Jun, [facility] [place] [facility] [address] [id number] [place] [address]- 6365 Jun, [facility] [place] [facility] [address] [id number] [place] [address]- 9773 Jun, [facility] [place] [facility] [address] [id number] [place] [address]- 6640 Jun, [facility] [place] [facility] [address] [id number] [place] [address]- 1229 Jun, [facility] [place] [facility] [address] [id number] [place] [address]- 1664 Jun, [facility] [place] [facility] [address] [id number] [place] [address]- 0209 26 May, 2012 [facility] [place] [facility] [address] [id number] [place] [address]- 5280 24 May, 2012 [facility] [place] [facility] [address] [id number] [place] [address]- 2318 May, [facility] [place] [facility] [address] [id number] [place] [address]- 3917 Apr, [facility] [place] [facility] [address] [id number] [place] [address]- 6493 Apr, [facility] [place] [facility] [address] [id number] [place] [address]- 6758 Apr, [facility] [place] [facility] [address] [id number] [place] [address]- 7615 Apr, [facility] [place] [facility] [address] [id number] [place] [address]- 2541 Apr, [facility] [place] [facility] [address] [id number] [place] [address]- 1874 Apr, [facility] [place] [facility] [address] [id number] [place] [address]- 2757 Mar, [facility] [place] [facility] [address] [id number] [place] [address]- 2152 Mar, [facility] [place] [facility] [address] [id number] [place] [address]- 6060 Mar, [facility] [place] [facility] [address] [id number] [place] [address]- 7554 Mar, [facility] [place] [facility] [address] [id number] [place] [address]- 3841 Feb, [facility] [place] [facility] [address] [id number] [place] [address]- 0291 Feb, [facility] [place] [facility] [address] [id number] [place] [address]- 5609 Feb, [facility] [address] [id number] [place] [address]- 2238 Feb, [facility] [place] [facility] [address] [id number] [place] [address]- 2631 Feb, [facility] [place] [facility] [address] [id number] [place] [address]- 8858 January, [facility] [place] [facility] [address] [id number] [place] [address]- 1809 January, [facility] [place] [facility] [address] [id number] [place] [address]- 1724 January, [facility] [place] [facility] [address] [id number] [place] [address]- 3130 January, [facility] [address] [id number] [place] [address]- 4466 January, [facility] [place] [facility] [address] [id number] [place] [address]- 6209 January, [facility] [place] [facility] [address] [id number] [place] [address]- 0866 Dec, [facility] [place] [facility] [address] [id number] [place] [address]- 3470 Dec, [facility] [place] [facility] [address] [id number] [place] [address]- 4258 Dec, [facility] [place] [facility] [address] [id number] [place] [address]- 0954 Dec, [facility] [place] [facility] [address] [id number] [place] [address]- 9535 Dec, [facility] [place] [facility] [address] [id number] [place] [address]- 3434 Nov, [facility] [place] [facility] [address] [id number] [place] [address]- 8032 Nov, [facility] [place] [facility] [address] [id number] [place] [address]- 8656 Nov, [facility] [place] [facility] [address] [id number] [place] [address]- 0446 Nov, [facility] [place] [facility] [address] [id number] [place] [address]- 2456 29 Oct, 2011 [facility] [place] [facility] [address] [id number] [place] [address]- 3996 28 Oct, 2011 [facility] [place] [facility] [address] [id number] [place] [address]- 3840 24 Oct, 2011 [facility] [place] [facility] [address] [id number] [place] [address]- 6436 Oct, [facility] [place] [facility] [address] [id number] [place] [address]- 5754 Oct, [facility] [place] [facility] [address] [id number] [place] [address]- 2706 Sep, [facility] [place] [facility] [address] [id number] [place] [address]- 8143 Sep, [facility] [place] [facility] [address] [id number] [place] [address]- 0145 Sep, [facility] [place] [facility] [address] [id number] [place] [address]- 4685 Sep, [facility] [place] [facility] [address] [id number] [place] [address]- 5803 Sep, [facility] [place] [facility] [address] [id number] [place] [address] Sep, [facility] [place] [facility] [address] [id number] [place] [address] Aug, [facility] [place] [facility] [address] [id number] [place] [address] Aug, [facility] [place] [facility] [address] [id number], [place] [address] Aug, [facility] [place] [facility] [address] [id number] [place] [address] Jul, [facility] [place] [facility] [address] [id number] [place] [address] Jul, [facility] [place] [facility] [address] [facility] [id number] [place] [address] Jul, [facility] [place] [facility] [address] [id number] [place] [address] Jul, [facility] [place] [facility] [address] [id number] [place] [address] Jun, [facility] [place] [facility] [address] [id number] [place] [address] 47[address] Jun, [facility] [place] [facility] [address] [facility] [id number] [place] [address]- 4969 Jun, [facility] [place] [facility] [address] [facility] [id number] [place] [address] 2965 Jun, [facility] [place] [facility] [address] [facility] [id number] [place] [address] 2979 Jun, [facility] [place] [facility] [address] [facility] [id number] [place] [address] 98[address] Jun, [facility] [place] [facility] [address] [facility] [id number] [place] [address]- 0667 Mar, [facility] [place] [facility] [address] [id number] [place] [address] 7132 Dec, [facility] [place] [facility] [address] [id number] [place] [address] 2474 Dec, [facility] [place] [facility] [address] [facility] [id number] [place] [address] Nov, [facility] [place] [facility] [address] [facility] [id number] [place] [address] 16 Nov, 2010 [facility] [place] [facility] [address] [id number] [place] [address] 6[address] 10 Sep, 2010 [facility] [address] [id number] [place] [address] 67[address] 31 Aug, 2010 [facility] [place] [facility] [address] [id number] [place] [address] 2546 29 Aug, 2010 [facility] [address] [id number] [place] [address] 2546 29 Aug, 2010 [facility] [place] [facility] [address] [id number] [place] [address] 2546 29 Aug, 2010 [facility] [address] [id number] [place] [address] 27 Aug, 2010 [facility] [place] [facility] [address] [id number] [place] [address]86 14 Aug, 2010 [facility] [place] [facility] [address] [id number] [place] [address] 2549 08 Aug, 2010 [facility] [address] [id number] [place] [address] 2542 08 Aug, 2010 [facility] [place] [facility] [address] [id number] [place] [address] 2546 Aug, [facility] [address] [facility] [id number] [place] [address]- [address]86 06 Aug, 2010 [facility] [place] [facility] [address] [id number] [place] [address] 2546 Aug, [facility] [place] [facility] [address] [id number] [place] [address] 2546 Aug, [facility] [place] [facility] [address] [id number] [place] [address] 2546 Jul, [facility] [place] [facility] [address] [id number] [place] [address] 2546 Jul, [facility] [place] [facility] [address] [id number] [place] [address]- 8399 30 Jul, 2010 [facility] [place] [facility] [address] [id number] [place] [address]- 6942 17 Jul, 2010 [facility] [place] [facility] [address] [id number] [place] [address]- 2887 08 Jul, 2010 [facility] [place] [facility] [address] [id number] [place] [address]- 2361 Jul, [facility] [place] [facility] [address] [id number] [place] [address]- 7928 24 Jun, 2010 [facility] [place] [facility] [address] [id number] [place] [address]- 3479 Jun, [facility] [place] [facility] [address] [id number] [place] [address]- 3468 Jun, [facility] [place] [facility] [address] [id number] [place] [address]- 3613 Jun, [facility] [place] [facility] [address] [id number] [place] [address]- 1373 16 Apr, 2010 [facility] [place] [facility] [address] [id number] [place] [address] 9687 Mar, [facility] [place] [facility] [address] [id number], [place] [address] Feb, [facility] [place] [facility] [address] [id number], [place] [address] January, [facility] [place] [facility] [address] [id number], [place] [address] 15 Dec, 2009 [facility] [place] [facility] [address] [id number] [place] [address]- 0297 Nov, [facility] [place] [facility] [address] [id number], [place] [address]- [address] 31 Aug, 2009 [facility] [place] [facility] [address] [id number] [place] [address]- [address] 23 Aug, 2009 [facility] [place] [facility] [id number], [place] [address] 07 Aug, 2009 [facility] [id number], [place] [address] Jul, [facility] [id number], [place] [address] Jul, [facility] [id number], [place] [address] Jul, [facility] [id number], [place] [address] 28[address] Jun, [facility] [id number] [place] [address]- [address] Jun, [facility] [id number], [place] [address] 1260 Jun, [facility] [id number], [place] [address]60 Jun, [facility] [id number], [place] [address] 6[address] Jun, [facility] [id number], [place] [address] 2985 Jun, [facility] [id number], [place] [address]- 07[address] Apr, [facility] [id number], [place] [address] Apr, [facility] [address] [id number], [place] [address] Feb, [facility] [address] [id number], [place] [address] January, [facility] [id number], [place] [address] Dec, IMMUNIZATIONS No Known Immunizations SOCIAL HISTORY Never Assessed REASON FOR VISIT BH f/u, Depression. PLAN OF CARE Activity Details Follow Up 2 Weeks Reason:depression VITAL SIGNS MEDICATIONS Unknown Medications RESULTS No Results PROCEDURES Procedure Date Ordered Result Body Site [facility] VISIT MENTAL HEALTH ESTAB PT February 01, 2018 Psychotherapy, patient &/family, 45 minutes, established patient February 01, 2018 INSTRUCTIONS MEDICATIONS ADMINISTERED No Known Medications MEDICAL (GENERAL) HISTORY Type Description Date Medical History type II diabetes Medical History coronary artery disease stress test 01/5015 Medical History chronic obstructive pulmonary disease (COPD) Medical History gastroesophageal reflux disease (GERD) Medical History acute renal failure Medical History erectile dysfunction Medical History hyperlipidemia Medical History obesity Medical History skin cancer-basal cell R sikhism (removed) Medical History Arthritis Medical History degenerative [...] release (Left) 2000 Surgical History EGD ([facility]) 2009 Surgical History colonoscopy 2009 ([facility]), 2013 ([facility]) Surgical History heart 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 04/2014 Surgical History carotid US 05/2014 Surgical History resection of skin cancer from Right sikhism Surgical History Biopsy of Lung Bilateral/Left lung lymph node 09/2016 Surgical History Bone Marrow Biopsy Surgical History port in the right chest wall 12/2016 Hospitalization History [facility] low potassium, low magnesium, chest painina 01/2015 Hospitalization History inability to urinate 09/16/[address] [facility] early Hospitalization History hyperkalemia 10/2017 Hospitalization History fluid in lung
--- OUTSIDE RECORDS SUMMARY | 2018-08-08 14:17 | XMS REPORT ---
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 Name Role Phone NOEMI WASHBURN Unavailable PROBLEMS Type Condition ICD9-CM Code UWB52-AS Code Onset Dates Condition Status SNOMED Code Problem Chronic lymphocytic leukemia C91.10 Active 50298737 Problem Lymphocytosis D72.820 Active 65803512 Problem Eye exam abnormal R93.8 Active 286903594 Problem Eustachian tube dysfunction, unspecified laterality H69.80 Active 94970397 Problem Essential hypertension I10 Active 19118600 Problem Dysuria R30.0 Active 95641499 Problem Diabetic polyneuropathy associated with type 2 diabetes mellitus E11.42 Active 48046901 Problem Cough R05 Active 30844884 Problem Polyneuropathy associated with underlying disease G63 Active 120744068 Problem Retinal edema H35.81 Active 7980019 Problem Bilateral primary osteoarthritis of knee M17.0 Active 333157063 Problem Primary osteoarthritis of right knee M17.11 Active 620125156323438 Problem Pure hypercholesterolemia E78.00 Active 270970958 Problem DM neuro manif type II E11.49 Active 46960549 Problem Benign prostatic hyperplasia with lower urinary tract symptoms, unspecified morphology N40.1 Active 420240624 Problem Hypokalemia E87.6 Active 29130023 Problem 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 Active 307010542 Problem Anemia of chronic illness D63.8 Active 667265794 Problem Bipolar disorder, in partial remission, most recent episode depressed F31.75 Active 15731958 Problem Falling R29.6 Active 435617984 Problem Leukocytosis D72.829 Active 956950581 Problem Reactive airway disease J45.909 Active 281383297880 Problem Diabetes E11.9 Active 20906577 Problem Chronic pain G89.29 Active 29090420 Problem Anxiety F41.9 Active 12103597 Problem Morbid obesity E66.01 Active 978937855 Problem Bipolar I disorder, most recent episode (or current) mixed, moderate F31.62 Active 05413467 Problem Insomnia, unspecified type G47.00 Active 124908069 ALLERGIES Substance Reaction Event Type Date Status Breo Ellipta Tongue Swelling Drug Allergy Dec, Active ENCOUNTERS Encounter Location Date Diagnosis [facility] [id number] [place] [address] 12833- 9005 Jun, [facility] [address] 89863- 8177 Apr, [facility] [id number] [place] [address] 53200- 3398 Apr, Primary osteoarthritis of right knee M17.11 [facility] [address] 71932- 0570 Mar, [facility] [id number] [place] [address] 13658- 3828 Mar, BMI 50.0-59.9, adult Z68.43 and Bipolar disorder, in partial remission, most recent episode depressed F31.75 [facility] [id number] [place] [address] 16550- 5924 Mar, Diabetes E11.9 ; Pure hypercholesterolemia E78.00 ; Essential hypertension I10 ; Nausea with vomiting, unspecified R11.2 and Headache, unspecified headache type R51 [facility] [id number] [place] [address] 02088- 0561 Mar, Bipolar I disorder, most recent episode (or current) mixed, moderate F31.62 [facility] [id number] [place] [address] 93514- 2357 Mar, Bipolar I disorder, most recent episode (or current) mixed, moderate F31.62 [facility] [id number] [place] [address] 25104- 1141 Mar, Chronic pain G89.29 [facility] [id number] [place] [address] 75288- 7857 Mar, Bipolar I disorder, most recent episode (or current) mixed, moderate F31.62 [facility] [address] [address] 3877 Feb, Bipolar I disorder, most recent episode (or current) mixed, moderate F31.62 [facility] [address] [address] 4737 14 Feb, 2018 Chronic pain G89.29 [facility] [id number] [place] [address] 62503- 4610 Feb, Decubitus ulcer of right foot, stage 3 L89.893 and BMI 50.0- 59.9, adult Z68.43 [facility] [id number] [place] [address] 70637- 2410 04 Feb, 2018 Bipolar I disorder, most recent episode (or current) mixed, moderate F31.62 [facility] [id number] [place] [address] 52662- 7990 Feb, [facility] [id number] [place] [address] 89111- 5954 January, [facility] [id number] [place] [address] 70231- 9585 January, Chronic pain G89.29 [facility] [id number] [place] [address] 78230- 0992 January, Bipolar I disorder, most recent episode (or current) mixed, moderate F31.62 [facility] [address] [address]- 1453 January, Bipolar I disorder, most recent episode (or current) mixed, moderate F31.62 [facility] [id number] [address]- 3639 Dec, Bipolar I disorder, most recent episode (or current) mixed, moderate F31.62 and BMI 50.0-59.9, adult Z68.43 [facility] [id number] [place] [address] 44788- 2228 Dec, Bipolar I disorder, most recent episode (or current) mixed, moderate F31.62 [facility] [id number] [place] [address] 96633- 5594 Dec, Chronic pain G89.29 [facility] [id number] [place] [address] 75302- 8490 Dec, DM neuro manif type II E11.49 ; Right flank pain R10.9 ; 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 ; Encounter for medication monitoring Z51.81 and BMI 50.0-59.9, adult Z68.43 [facility] [id number] [place] [address] 266049- 2063 Dec, Bipolar I disorder, most recent episode (or current) mixed, moderate F31.62 [facility] [id number] [place] [address] 67783- 3408 Nov, Bipolar I disorder, most recent episode (or current) mixed, moderate F31.62 [facility] [id number] [place] [address] 92133- 7025 Nov, Chronic pain G89.29 [facility] [id number] [place] [address] 84918- 7373 Nov, Bipolar I disorder, most recent episode (or current) mixed, moderate F31.62 [facility] [id number] [place] [address] 07991- 3776 Nov, Hypokalemia E87.6 [facility] [id number] [place] [address] 31780- 5924 Nov, Bipolar I disorder, most recent episode (or current) mixed, moderate F31.62 [facility] [id number] [place] [address] 92606- 1269 Oct, Chronic pain G89.29 [facility] [id number] [place] [address] 28643- 5273 Oct, BMI 50.0-59.9, adult Z68.43 and Bipolar I disorder, most recent episode (or current) mixed, moderate F31.62 [facility] [address] [place] [address] 42552- 7767 Oct, Bipolar I disorder, most recent episode (or current) mixed, moderate F31.62 [facility] [id number] [place] [address] 05730- 1265 Oct, [facility] [id number] [place] [address] 45525- 5033 Oct, Hypokalemia E87.6 [facility] [id number] [place] [address] 32390- 4872 Oct, DM neuro manif type II E11.49 [facility] [id number] [place] [address] 93598- 3972 Oct, Bipolar I disorder, most recent episode (or current) mixed, moderate F31.62 [facility] [id number] [place] [address] 48907- 2306 Oct, Bipolar I disorder, most recent episode (or current) mixed, moderate F31.62 [facility] [id number] [place] [address] 37793- 5977 Oct, Hyperkalemia E87.5 ; Falling R29.6 ; BMI 50.0-59.9, adult Z68.43 and Acute left ankle pain M25.572 [facility] [id number] [place] [address] 25610- 7357 Oct, DM neuro manif type II E11.49 [facility] [id number] [place] [address] 30527- 7845 Oct, [facility] [id number] [place] [address] 97904- 4412 Sep, Chronic pain G89.29 [facility] [id number] [place] [address] 86315- 4484 Sep, [facility] [id number] [place] [address] 67389- 8125 Sep, Bilateral primary osteoarthritis of knee M17.0 [facility] [address] 16824- 7961 Sep, Generalized edema R60.1 [facility] [address] 17068- 4695 Sep, Bipolar I disorder, most recent episode (or current) mixed, moderate F31.62 [facility] [address] 27613- 8888 Sep, Hypoxia R09.02 ; Other hypervolemia E87.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 ; Anemia of chronic illness D63.8 and BMI 50.0- 59.9, adult Z68.43 [facility] [id number] [place] [address] 83989- 5999 Sep, [facility] [address] 61483- 9257 Sep, Bipolar I disorder, most recent episode (or current) mixed, moderate F31.62 [facility] [id number] [place] [address] 62378- 5423 Aug, Chronic pain G89.29 [facility] [id number] [place] [address] 97039- 6672 Aug, Generalized edema R60.1 [facility] [address] 53631- 6815 Aug, [facility] [id number] [place] [address] 61423- 9943 Aug, [facility] [address] 44308- 6644 14 Aug, 2017 Bipolar I disorder, most recent episode (or current) mixed, moderate F31.62 [facility] [id number] [place] [address] 7019 Aug, Bipolar I disorder, most recent episode (or current) mixed, moderate F31.62 [facility] [id number] [place] [address] 97149- 6161 Aug, Chronic pain G89.29 [facility] [id number] [place] [address] 65236- 9273 Jul, Bipolar I disorder, most recent episode (or current) mixed, moderate F31.62 [facility] [id number] [place] [address] 09530- 8023 Jul, Bipolar I disorder, most recent episode (or current) mixed, moderate F31.62 and BMI 60.0-69.9, adult Z68.44 [facility] [id number] [place] [address] 03517- 4842 Jul, Bipolar I disorder, most recent episode (or current) mixed, moderate F31.62 [facility] [id number] [place] [address] 92239- 8965 Jul, Chronic pain G89.29 [facility] [id number] [place] [address] 16278- 0300 Jul, Bipolar I disorder, most recent episode (or current) mixed, moderate F31.62 [facility] [id number] [place] [address] 79041- 5537 Jun, Polyneuropathy associated with underlying disease G63 and Diabetes E11.9 [facility] [id number] [place] [address] 67983- 7960 Jun, Bipolar I disorder, most recent episode (or current) mixed, moderate F31.62 [facility] [id number] [place] [address] 20670- 6566 Jun, Chronic pain G89.29 [facility] [address] [address]- 9429 27 May, 2017 Bipolar I disorder, most recent episode (or current) mixed, moderate F31.62 [facility] [id number] [place] [address] 39405- 2685 21 May, 2017 Bipolar I disorder, most recent episode (or current) mixed, moderate F31.62 [facility] [id number] [place] [address] 95014- 8466 20 May, 2017 Diabetic polyneuropathy associated with type 2 diabetes mellitus E11.42 [facility] [id number] [place] [address] 921943- 7275 18 May, 2017 Bipolar I disorder, most recent episode (or current) mixed, moderate F31.62 [facility] [id number] [place] [address] 08072- 8793 13 May, 2017 Bipolar I disorder, most recent episode (or current) mixed, moderate F31.62 [facility] [id number] [place] [address] 56008- 9540 May, Chronic pain G89.29 [facility] [id number] [place] [address] 32660- 0389 Apr, Bipolar I disorder, most recent episode (or current) mixed, moderate F31.62 [facility] [id number] [place] [address] 04417- 2816 Apr, [facility] [id number] [place] [address] 83968- 7504 Apr, Chronic pain G89.29 and DM neuro manif type II E11.49 [facility] [id number] [place] [address] 18183- 8747 Apr, [facility] [id number] [place] [address] 61740- 9088 Apr, Bipolar I disorder, most recent episode (or current) mixed, moderate F31.62 [facility] [address] [address]- 8174 Apr, Chronic pain G89.29 [facility] [id number] [place] [address] 64236- 8756 Apr, Iliotibial band syndrome, left M76.32 [facility] [id number] [place] [address] 56063- 3996 Apr, Bipolar I disorder, most recent episode (or current) mixed, moderate F31.62 [facility] [address] [place] [address] 32344- 5337 Mar, Bipolar I disorder, most recent episode (or current) mixed, moderate F31.62 [facility] [address] [place] [address] 77754- 1468 Mar, Bipolar I disorder, most recent episode (or current) mixed, moderate F31.62 [facility] [id number] [place] [address] 79806- 6069 Mar, [facility] [id number] [place] [address] 05562- 1655 Mar, Bipolar I disorder, most recent episode (or current) mixed, moderate F31.62 [facility] [address] [place] [address] 88161- 7092 Mar, Chronic pain G89.29 [facility] [address] [place] [address] 61736- 4868 Mar, Bipolar I disorder, most recent episode (or current) mixed, moderate F31.62 [facility] [address] [place] [address] 69132- 7361 Mar, Bipolar I disorder, most recent episode (or current) mixed, moderate F31.62 [facility] [address] [address]- 3702 Mar, Acute pain of left knee M25.562 ; Left hip pain M25.552 ; Generalized edema R60.1 and Tongue swelling R22.0 [facility] [id number] [place] [address] 41580- 7342 Mar, [facility] [id number] [place] [address] 67846- 7122 Feb, Chronic pain G89.29 [facility] [id number] [place] [address] 79894- 7819 Feb, Diabetes E11.9 [facility] [id number] [place] [address] 49594- 8615 January, Chronic pain G89.29 [facility] [id number] [place] [address] 10835- 8920 January, [facility] [id number] [place] [address] 13557- 3003 January, Bipolar I disorder, most recent episode (or current) mixed, moderate F31.62 [facility] [id number] [place] [address] 24835- 7279 Dec, Bipolar I disorder, most recent episode (or current) mixed, moderate F31.62 [facility] [id number] [place] [address] 10826- 7488 Dec, Chronic pain G89.29 [facility] [id number] [place] [address] 64604- 0601 Dec, Bipolar I disorder, most recent episode (or current) mixed, moderate F31.62 [facility] [address] [place] [address] 03329- 9442 Dec, Diabetes E11.9 ; Essential hypertension I10 ; Chronic pain G89.29 and Morbid obesity E66.01 [facility] [id number] [place] [address] 23305- 1597 Dec, [facility] [id number] [place] [address] 30597- 2957 Dec, Bipolar I disorder, most recent episode (or current) mixed, moderate F31.62 [facility] [address] [address] 2546 Dec, Bipolar I disorder, most recent episode (or current) mixed, moderate F31.62 [facility] [address] [address] 2546 Nov, Chronic pain G89.29 [facility] [id number] [place] [address] 41200 2546 Nov, Bipolar I disorder, most recent episode (or current) mixed, moderate F31.62 [facility] [id number] [place] [address] 42008- 0596 Nov, [facility] [address] [place] [address] 84092 2546 Nov, Bipolar I disorder, most recent episode (or current) mixed, moderate F31.62 [facility] [address] [place] [address] 47593 2546 Nov, Bipolar I disorder, most recent episode (or current) mixed, moderate F31.62 [facility] [address] [place] [address] 58069 2546 Nov, [facility] [address] [address] 2546 Nov, [facility] [address] [address] 2546 Nov, [facility] [id number] [address] 2546 Oct, Chronic pain G89.29 [facility] [address] [place] [address] 14095 2546 Oct, Bipolar I disorder, most recent episode (or current) mixed, moderate F31.62 [facility] [address] 8202 Oct, [facility] [address] [place] [address] 14851- 8782 Oct, Chronic pain G89.29 ; Diabetes E11.9 ; Anxiety F41.9 and 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 [facility] [id number] [place] [address] 16412- 6208 Oct, [facility] [id number] [place] [address] 07593- 8327 Oct, Diabetes E11.9 [facility] [id number] [place] [address] 87913- 8133 Oct, Bipolar I disorder, most recent episode (or current) mixed, moderate F31.62 [facility] [id number] [place] [address] 46461- 5225 Sep, Chronic pain G89.29 [facility] [id number] [place] [address] 85473- 7171 Sep, Chronic pain G89.29 [facility] [id number] [place] [address] 45285- 2971 Aug, Chronic pain G89.29 [facility] [id number] [place] [address] 60294- 0446 Jul, [facility] [id number] [place] [address] 63506- 6823 Jul, Diabetes E11.9 [facility] [id number] [place] [address] 62280- 4345 Jul, Chronic pain G89.29 [facility] [id number] [place] [address] 81573- 2191 Jul, Bipolar I disorder, most recent episode (or current) mixed, moderate F31.62 [facility] [address] [place] [address] 90704- 5303 Jun, Bipolar I disorder, most recent episode (or current) mixed, moderate F31.62 [facility] [id number] [place] [address] 93011- 4033 Jun, [facility] [id number] [place] [address] 704811- 2447 Jun, Bipolar I disorder, most recent episode (or current) mixed, moderate F31.62 [facility] [id number] [place] [address] 03414- 0043 30 May, 2016 Insomnia, unspecified type G47.00 [facility] [id number] [place] [address] 44324- 3142 May, Bipolar I disorder, most recent episode (or current) mixed, moderate F31.62 [facility] [id number] [place] [address] 90142- 1202 14 May, 2016 [facility] [id number] [place] [address] 51885- 0728 May, Bipolar I disorder, most recent episode (or current) mixed, moderate F31.62 [facility] [id number] [place] [address] 59662- 1271 May, Diabetes E11.9 and Essential hypertension I10 [facility] [id number] [place] [address] 08032- 0354 Apr, Chronic pain G89.29 [facility] [id number] [place] [address] 50875- 2189 Apr, Bipolar I disorder, most recent episode (or current) mixed, moderate F31.62 [facility] [address] [place] [address] 93033- 6863 Apr, [facility] [id number] [place] [address] 73233- 8857 Apr, [facility] [id number] [place] [address] 52886- 2634 Mar, Chronic pain G89.29 ; Headache, unspecified headache type R51 ; Neuropathy G62.9 ; Pain of right hip joint M25.551 and Essential hypertension I10 [facility] [id number] [place] [address] 80229- 3954 Mar, Chronic pain G89.29 [facility] [id number] [place] [address] 72528- 1575 Mar, Bipolar I disorder, most recent episode (or current) mixed, moderate F31.62 [facility] [id number] [place] [address] 73714- 5179 Feb, Bipolar I disorder, most recent episode (or current) mixed, moderate F31.62 and Insomnia, unspecified type G47.00 [facility] [id number] [place] [address] 42274- 1557 Feb, Chronic pain G89.29 [place] [place] [address] [phone]- [phone] Feb, Bipolar I disorder, most recent episode (or current) mixed, moderate F31.62 [facility] [id number] [place] [address] [phone]- [phone] January, Bipolar I disorder, most recent episode (or current) mixed, moderate F31.62 [facility] [place] [id number] [place] [address] 59198- [phone] January, Chronic pain G89.29 [facility] [id number] [place] [address] 51882- 5087 January, Chronic pain G89.29 and Essential hypertension I10 [facility] [id number] [place] [address] 59759- [phone] January, Bipolar I disorder, most recent episode (or current) mixed, moderate F31.62 [facility] [id number] [place] [address] 31672- [phone] Dec, [place] [address] 61450- 8174 Dec, [facility] [id number] [place] [address] 38872- [phone] Dec, [facility] [id number] [place] [address] 75616- 2251 Dec, [facility] [id number] [place] [address] 92945- 8312 Nov, Reactive airway disease J45.909 [facility] [id number] [place] [address] 18845- [phone] Nov, [facility] [address] 38387- 2347 Nov, [facility] [id number] [place] [address] [phone]- [phone] Nov, [facility] [address] [address] [address]- [address] Nov, [facility] [id number] [place] [address] 28297- 0048 Nov, Onychomycosis B35.1 ; Hammertoe M20.40 ; [place] or callus L84 and DM neuro manif type II E11.49 [facility] [id number] [place] [address] 58494- 7271 Nov, Chronic pain G89.29 ; Leukocytosis D72.829 and Diabetes E11.9 [facility] [id number] [place] [address] 67685- 4793 Nov, [facility] [id number] [place] [address] 60122- 1311 Oct, Bronchitis J40 [facility] [id number] [place] [address] 60492- 7023 Oct, [facility] [id number] [place] [address] 20222- 6384 Oct, [facility] [id number] [place] [address] 1321 Oct, Mastoiditis, unspecified laterality H70.90 and Type 2 diabetes mellitus with complication E11.8 [facility] [id number] [place] [address] 34872- 3722 Sep, [facility] [id number] [place] [address] 52525- 1128 Sep, Dysuria R30.0 ; Cough R05 ; Benign prostatic hyperplasia with lower urinary tract symptoms, unspecified morphology N40.1 ; Hypokalemia E87.6 and Eustachian tube dysfunction, unspecified laterality H69.80 [facility] [address] [address]- 6077 Sep, Moderate mixed bipolar I disorder F31.62 [facility] [id number] [place] [address] 01287- 0163 Sep, Hypokalemia E87.6 [facility] [id number] [place] [address] 05203- 0631 Sep, [facility] [address] 43023- 5029 Sep, Upper respiratory tract infection, unspecified type J06.9 [facility] [id number] [place] [address] 13456- 4416 Aug, [facility] [id number] [place] [address] 72679- 1885 Aug, Dysuria R30.0 [facility] [id number] [place] [address] 90218- 4696 Aug, [facility] [id number] [place] [address] 10040- 3395 Jul, [facility] [id number] [place] [address] 93335- 3357 Jul, [facility] [id number] [place] [address] 19891- 7731 Jul, [facility] [id number] [address]- 1356 Jul, [facility] [id number] [address]- 8345 Jun, [facility] [id number] 9638 Jun, [facility] [id number] [place] [address] 717532- 1561 Jun, [facility] [id number] [place] [address] 77528- 9178 May, [facility] [id number] [place] [address] 451283- 8361 May, Bipolar I disorder, most recent episode (or current) mixed, moderate 296.62 [facility] [id number] [place] [address] 84864- 8551 May, [facility] [id number] [address]- 3011 May, Bipolar I disorder, most recent episode (or current) mixed, moderate 296.62 and Major depressive disorder, recurrent episode, severe, specified as with psychotic behavior 296.34 [facility] [id number] [address]- 8496 May, Bipolar I disorder, most recent episode (or current) mixed, moderate 296.62 [facility] [id number] [address]- 6044 May, [facility] [id number] [address]- 3543 Apr, [facility] [id number] 8504 Apr, [facility] [id number] [address]- 8966 Apr, Unspecified disorder of kidney and ureter 593.9 and Diabetes mellitus type 2, uncontrolled 250.02 [facility] [id number] [address]- 7421 Apr, [facility] [id number] [place] [address] 73332- 8481 Apr, [facility] [id number] [place] [address] 16711- 7914 Apr, [facility] [id number] [place] [address] 53899- 9820 Apr, [facility] [id number] [place] [address] 06688- 2776 Apr, Diabetes mellitus type II, uncontrolled 250.02 [facility] [id number] [place] [address] 89017- 7625 Apr, [facility] [id number] [place] [address] 96529- 1231 Mar, [facility] [id number] [place] [address] 73569- 3101 Mar, [facility] [id number] [place] [address] 54399- 2693 Mar, [facility] [address] [address]- 1299 Mar, Major depressive disorder, recurrent episode, severe, specified as with psychotic behavior 296.34 and Bipolar I disorder, most recent episode (or current) mixed, moderate 296.62 [facility] [id number] [address]- 5743 Mar, Diabetes 250.00 ; Anuria 788.5 ; Nausea and vomiting 787.01 and Diarrhea 787.91 [facility] [id number] [address]- 0026 Mar, Diabetes 250.00 [facility] [id number] [place] [address] 96657- 5464 Mar, [facility] [id number] [address]- 1983 Mar, Diabetes 250.00 [facility] [address] [address]- 8879 Mar, [facility] [address] [address]- 5622 Mar, [facility] [id number] [place] [address] 71308- 3627 Mar, [facility] [address] [address]- 7482 Mar, [facility] [id number] [place] [address] 83626- 3293 Mar, Bipolar I disorder, most recent episode (or current) mixed, moderate 296.62 and Major depressive disorder, recurrent episode, severe, specified as with psychotic behavior 296.34 [facility] [address] [address]- 2049 Mar, Magnesium deficiency 275.2 ; Hypokalemia 276.8 ; Nausea & vomiting 787.01 and Diabetes mellitus type 2, uncontrolled 250.02 [facility] [address] [address]- 3817 Feb, [facility] [address] [address]- 9853 Feb, Bipolar I disorder, most recent episode (or current) mixed, moderate 296.62 [facility] [id number] [address]- 0090 Feb, Nausea and vomiting 787.01 ; Left elbow pain 719.42 ; Anuria 788.5 and Diabetes 250.00 [facility] [address] [address]- 0172 Feb, [facility] [id number] [place] [address] 63006- 7077 Feb, Hypopotassemia 276.8 and Hypokalemia 276.8 [facility] [id number] [place] [address] 21092- 1650 Feb, Hypopotassemia 276.8 and Hypokalemia 276.8 [facility] [id number] [place] [address] 08654- 5414 Feb, Seborrheic keratoses 702.19 [facility] [id number] [place] [address] 72217- 1284 Feb, Hypopotassemia 276.8 and Low magnesium levels 275.2 [facility] [id number] [place] [address] 46593- 3889 January, [facility] [id number] [place] [address] 02781- 3925 January, [facility] [id number] [place] [address] 34807- 3768 January, [facility] [id number] [place] [address] 32935- 2557 January, Scalp lesion 709.9 [facility] [id number] [place] [address] 75964- 6016 January, [facility] [id number] [place] [address] 33590- 2560 Dec, Tear of medial cartilage or meniscus of knee, current 836.0 and 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 [facility] [id number] [address]- 9644 Dec, [facility] [id number] [place] [address] 93355- 7081 Dec, [facility] [id number] [place] [address] 81966- 8774 Dec, Squamous cell carcinoma, 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 [facility] [id number] [place] [address] 84815- 8708 14 Dec, 2014 [facility] [place] [facility] [address] [id number] [place] [address]- 0007 Dec, [facility] [place] [facility] [address] [id number] [place] 7149 Nov, [facility] [place] [facility] [address] [id number] [place] [address]- 6911 Nov, [facility] [place] [facility] [address] [id number] [place] [address]- 9596 Nov, [facility] [place] [facility] [address] [id number] [place] [address]- 4803 Nov, [facility] [place] [facility] [address] [id number] [place] [address]- 8684 Nov, [facility] [place] [facility] [address] [facility] [id number] [place] [address]- 9580 Nov, [facility] [place] [facility] [address] [facility] [id number] [place] [address]- 6890 Nov, [facility] [place] [facility] [address] [id number] [place] [address]- 8046 Nov, [facility] [place] [facility] [address] [facility] [id number] [place] [address]- 8812 Nov, [facility] [place] [facility] [address] [id number] [place] [address]- 7998 Nov, [facility] [place] [facility] [address] [facility] [id number] [place] [address]- 1824 Nov, [facility] [place] [facility] [address] [id number] [place] [address]- 0043 Nov, [facility] [place] [facility] [address] [facility] [id number] [place] [address]- 8550 Oct, [facility] [place] [facility] [address] [facility] [id number] [place] [address]- 0248 Oct, [facility] [place] [facility] [address] [id number] [place] [address]- 5768 Oct, 2014 [facility] [place] [facility] [address] [id number] [place] [address]- 3199 Oct, 2014 [facility] [place] [facility] [address] [id number] [place] [address]- 3078 Oct, 2014 [facility] [place] [facility] [address] [id number] [place] [address]- 1495 Oct, 2014 [facility] [place] [facility] [address] [id number] [place] [address]- 7188 Oct, 2014 [facility] [place] [facility] [address] [id number] [place] [address]- 7785 Oct, 2014 [facility] [place] [facility] [address] [facility] [id number] [place] [address]- 1404 Oct, 2014 [facility] [place] [facility] [address] [id number] [place] [address]- 7641 Sep, [facility] [place] [facility] [address] [id number] [place] [address]- 6748 Sep, [facility] [place] [facility] [address] [facility] [id number] [place] [address]- 9229 Sep, [facility] [place] [facility] [address] [facility] [id number] [place] [address]- 7551 Sep, [facility] [place] [facility] [address] [id number] [place] [address]- 3838 Sep, [facility] [place] [facility] [address] [id number] [place] [address]- 7734 Sep, [facility] [place] [facility] [address] [id number] [place] [address]- 4289 Sep, [facility] [place] [facility] [address] [id number] [place] [address]- 7888 Sep, [facility] [place] [facility] [address] [id number] [place] [address]- 3226 Sep, [facility] [place] [facility] [address] [id number] [place] [address]- 3528 Sep, [facility] [place] [facility] [address] [id number] [place] [address]- 0866 Sep, [facility] [place] [facility] [address] [facility] [id number] [place] [address]- 8524 Sep, [facility] [place] [facility] [address] [id number] [place] [address]- 0418 Sep, [facility] [place] [facility] [address] [id number] [place] [address]- 8123 Sep, [facility] [place] [facility] [address] [id number] [place] [address]- 3924 Sep, [facility] [place] [facility] [address] [facility] [id number] [place] [address]- 4751 Sep, [facility] [place] [facility] [address] [id number] [place] [address]- 9837 Aug, [facility] [place] [facility] [address] [id number] [place] [address]- 3887 Aug, [facility] [place] [facility] [address] [facility] [id number] [place] [address]- 0127 31 Aug, 2014 [facility] [place] [facility] [address] [id number] [place] [address]- 9156 31 Aug, 2014 [facility] [place] [facility] [address] [id number] [place] [address]- 1633 31 Aug, 2014 [facility] [place] [facility] [address] [id number] [place] [address]- 3287 31 Aug, 2014 [facility] [place] [facility] [address] [id number] [place] [address]- 0739 17 Aug, 2014 [facility] [place] [facility] [address] [facility] [id number] [place] [address]- 7420 17 Aug, 2014 [facility] [place] [facility] [address] [id number] [place] [address]- 9835 Aug, [facility] [address] [id number] [place] [address]- 1149 Aug, [facility] [address] [id number] [place] [address]- 5115 Aug, [facility] [address] [place] [id number] Aug, [facility] [address] [id number] [place] [address]- 5241 Aug, [facility] [address] [id number] [place] [address]- 8562 Aug, [facility] [address] [id number] [place] [address]- 1860 Aug, [facility] [address] [id number] [place] [address]- 4645 Aug, [facility] [address] [id number] [place] [address]- 4974 Aug, [facility] [address] [id number] [place] [address]- 5384 Aug, [facility] [address] [id number] [place] [address]- 1040 Aug, [facility] [address] [id number] [place] [address]- 8642 Aug, [facility] [address] [id number] [place] [address]- 4687 Aug, [facility] [address] [id number] [place] [address]- 1110 Aug, [facility] [address] [id number] [place] [address]- 9923 Aug, [facility] [address] [id number] [place] [address]- 1701 Aug, [facility] [place] [facility] [address] [id number] [place] [address]- 5796 Aug, [facility] [place] [facility] [address] [id number] [place] [address]- 2546 Aug, [facility] [place] [facility] [address] [id number] [place] [address]- 8130 Aug, [facility] [place] [facility] [address] [id number] [place] [address]- 7163 Aug, [facility] [place] [facility] [address] [id number] [place] [address]- 5313 Aug, [facility] [place] [facility] [address] [id number] [place] [address]- 6372 Aug, [facility] [place] [facility] [address] [id number] [place] [address]- 4831 Jul, [facility] [place] [facility] [address] [id number] [place] [address]- 3911 Jul, [facility] [place] [facility] [address] [id number] [place] [address]- 7480 Jul, [facility] [place] [facility] [address] [id number] [place] [address]- 9154 Jul, [facility] [place] [facility] [address] [id number] [place] [address]- 1554 Jul, [facility] [place] [facility] [address] [id number] [place] [address]- 7066 Jul, [facility] [place] [facility] [address] [id number] [place] [address]- 9590 Jul, [facility] [place] [facility] [address] [id number] [place] [address]- 8326 Jul, [facility] [place] [facility] [address] [id number] [place] [address]- 4235 Jul, [facility] [place] [facility] [address] [id number] [place] [address]- 8517 Jul, [facility] [place] [facility] [address] [id number] [place] [address]- 2416 Jun, [facility] [place] [facility] [address] [id number] [place] 0460 Jun, [facility] [place] [facility] [address] [id number] [place] [address]- 2895 Jun, [facility] [place] [facility] [address] [id number] [place] [address]- 4503 Jun, [facility] [place] [facility] [address] [id number] [place] [address]- 0174 Jun, [facility] [place] [facility] [address] [id number] [place] [address]- 5304 Jun, [facility] [place] [facility] [address] [id number] [place] [address]- 6788 Jun, [facility] [place] [facility] [address] [id number] [place] [address]- 7084 Jun, [facility] [place] [facility] [address] [id number] [place] [address]- 6985 Jun, [facility] [place] [facility] [address] [id number] [place] [address]- 9367 Jun, [facility] [place] [facility] [address] [id number] [place] [address]- 7029 29 May, 2014 [facility] [place] [facility] [address] [id number] [place] [address]- 4469 29 May, 2013 [facility] [place] [facility] [address] [id number] [place] [address]- 7033 26 May, 2013 [facility] [place] [facility] [address] [id number] [place] [address]- 0665 26 May, 2013 [facility] [place] [facility] [address] [id number] [place] [address]- 6511 17 May, 2013 [facility] [place] [facility] [address] [id number] [place] [address]- 0221 17 May, 2013 [facility] [place] [facility] [address] [id number] [place] [address] 2546 15 May, 2013 [facility] [place] [facility] [address] [id number] [place] [address] 2546 15 May, 2013 [facility] [place] [facility] [address] [id number] [place] [address]- 3316 15 May, 2013 [facility] [place] [facility] [address] [id number] [place] [address]- 2544 15 May, 2013 [facility] [place] [facility] [address] [id number] [place] [address]- 3731 10 May, 2013 [facility] [place] [facility] [address] [id number] [place] [address]- 4287 10 May, 2013 [facility] [place] [facility] [address] [id number] [place] [address]- 2027 09 May, 2013 [facility] [place] [facility] [address] [id number] [place] [address]- 3022 09 May, 2013 [facility] [place] [facility] [address] [id number] [place] [address]- 4986 04 May, 2013 [facility] [place] [facility] [address] [id number] [place] [address]- 9717 04 May, 2013 [facility] [place] [facility] [address] [id number] [place] [address]- 2543 Apr, [facility] [place] [facility] [address] [id number] [place] [address]- 2544 Apr, [facility] [place] [facility] [address] [id number] [place] [address]- 6167 Apr, [facility] [place] [facility] [address] [id number] [place] [address]- 2543 Apr, [facility] [place] [facility] [address] [id number] [place] [address]- 7911 Apr, [facility] [place] [facility] [address] [id number] [place] [address]- 0269 Apr, [facility] [place] [facility] [address] [id number] [place] [address]- 4990 Apr, [facility] [place] [facility] [address] [id number] [place] [address]- 3303 Apr, [facility] [place] [facility] [address] [id number] [place] [address] Apr, [facility] [place] [facility] [address] [id number] [place] [address] Apr, [facility] [place] [facility] [address] [id number] [place] [address] Apr, [facility] [place] [facility] [address] [id number] [place] [address] Apr, [facility] [place] [facility] [address] [id number] [place] [address] Apr, [facility] [place] [facility] [address] [id number] [place] [address] Apr, [facility] [place] [facility] [address] [id number] [place] [address] Apr, [facility] [place] [facility] [address] [id number] [place] [address] Mar, [facility] [place] [facility] [address] [id number] [place] [address] Mar, [facility] [place] [facility] [address] [id number] [place] [address] Mar, [facility] [place] [facility] [address] [id number] [place] [address] Mar, [facility] [place] [facility] [address] [id number] [place] [address] Mar, [facility] [place] [facility] [address] [id number] [place] [address] Mar, 2013 [facility] [place] [facility] [address] [id number] [place] [address]- [address] Mar, 2013 [facility] [place] [facility] [address] [id number] [place] [address] Mar, 2013 [facility] [place] [facility] [address] [id number] [place] [address] Mar, 2013 [facility] [place] [facility] [address] [id number] [place] [address] Mar, 2013 [facility] [place] [facility] [address] [id number] [place] [address]- [address] Mar, 2013 [facility] [place] [facility] [address] [id number] [place] [address]- [address] Mar, 2013 [facility] [place] [facility] [address] [id number] [place] [address]- [address] Mar, 2013 [facility] [place] [facility] [address] [id number] [place] [address]- 140[address] Mar, 2013 [facility] [place] [facility] [address] [id number] [place] [address]- [address] Mar, 2013 [facility] [place] [facility] [address] [id number] [place] [address]- [address] Mar, 2013 [facility] [place] [facility] [address] [id number] [place] [address]- [address] Mar, [facility] [place] [facility] [address] [id number] [place] [address]- [address] Mar, [facility] [place] [facility] [address] [id number] [place] [address]- 74[address] Feb, [facility] [place] [facility] [address] [id number] [place] [address]- 7931 Feb, [facility] [place] [facility] [address] [id number] [place] [address]100 Feb, [facility] [place] [facility] [address] [id number] [place] [address]- [address] Feb, [facility] [place] [facility] [address] [id number] [place] [address] 47[address] Feb, [facility] [place] [facility] [address] [id number] [facility] [place] [address] Feb, [facility] [place] [facility] [address] [id number] [place] [address] Feb, [facility] [place] [facility] [address] [id number] [place] [address]- [address] Feb, [facility] [place] [facility] [address] [id number] [place] [address]- [address] Feb, [facility] [place] [facility] [address] [id number] [place] [address]- 65[address] Feb, [facility] [place] [facility] [address] [id number] [place] [address] 8634 Feb, [facility] [place] [facility] [address] [id number] [place] [address]- [address] Feb, [facility] [place] [facility] [address] [id number] [place] [address]- 14[address] Feb, [facility] [place] [facility] [address] [id number] [place] [address]- [address] Feb, [facility] [place] [facility] [address] [id number] [place] [address] January, [facility] [place] [facility] [address] [id number] [place] [address] 22[address] January, [facility] [place] [facility] [address] [id number] [place] [address]- [address] January, [facility] [place] [facility] [address] [id number] [place] [address] 48[address] January, [facility] [place] [facility] [address] [id number] [place] [address]- 3467 January, [facility] [place] [facility] [address] [id number] [place] [address] January, [facility] [place] [facility] [address] [id number] [place] [address]- [address] January, [facility] [place] [facility] [address] [id number] [place] [address]- [address]14 January, [facility] [place] [facility] [address] [id number] [place] [address]- [address] January, [facility] [place] [facility] [address] [id number] [place] [address]- [address] January, [facility] [place] [facility] [address] [id number] [place] [address]- [address]78 January, [facility] [place] [facility] [address] [id number] [place] [address]- [address] January, [facility] [place] [facility] [address] [id number] [place] [address] January, [facility] [place] [facility] [address] [id number] [place] [address]- [address] January, [facility] [place] [facility] [address] [id number] [place] [address]- [address]76 Dec, [facility] [place] [facility] [address] [id number] [place] [address]- 73[address] Dec, [facility] [place] [facility] [address] [id number] [place] [address]- [address] Dec, [facility] [place] [facility] [address] [id number] [place] [address] Dec, [facility] [place] [facility] [address] [id number] [place] [address] Dec, [facility] [place] [facility] [address] [id number] [place] [address] 8417 Dec, [facility] [place] [facility] [address] [id number] [place] [address] 0363 Dec, [facility] [place] [facility] [address] [id number] [place] [address] 5491 Dec, [facility] [place] [facility] [address] [id number] [place] [address] Dec, [facility] [place] [facility] [address] [id number] [place] [address]- 0989 Dec, [facility] [place] [facility] [address] [id number] [place] [address]- 4828 Nov, [facility] [place] [facility] [address] [id number] [place] [address] 2600 Nov, [facility] [place] [facility] [address] [id number] [place] [address]- 3674 Nov, [facility] [place] [facility] [address] [id number] [place] [address]- 4587 Nov, [facility] [place] [facility] [address] [id number] [place] [address]- 1329 Nov, [facility] [place] [facility] [address] [id number] [place] [address]- 2656 Nov, [facility] [place] [facility] [address] [facility] [id number] [place] [address] 4461 Nov, [facility] [place] [facility] [address] [id number] [place] [address]- 6786 Nov, [facility] [place] [facility] [address] [id number] [place] [address]- 7440 Nov, [facility] [place] [facility] [address] [id number] [place] [address]- 2325 Nov, [facility] [place] [facility] [address] [id number] [place] [address]- 5443 Oct, [facility] [place] [facility] [address] [id number] [place] [address]- 5520 Oct, [facility] [place] [facility] [address] [id number] [place] [address]- 7348 Oct, [facility] [place] [facility] [address] [id number] [place] [address]- 8216 Oct, [facility] [place] [facility] [address] [id number] [place] [address]- 9176 Oct, [facility] [place] [facility] [address] [id number] [place] [address]- 6694 Oct, [facility] [place] [facility] [address] [id number] [place] [address] 2546 Oct, [facility] [place] [facility] [address] [id number] [place] [address]- 7690 Oct, [facility] [place] [facility] [address] [id number] [place] [address]- 3809 Oct, [facility] [place] [facility] [address] [id number] [place] [address]- 0193 Oct, [facility] [place] [facility] [address] [id number] [place] [address]- 5904 Oct, [facility] [place] [facility] [address] [id number] [place] [address]- 8969 Oct, [facility] [place] [facility] [address] [id number] [place] [address]- 3382 Oct, [facility] [place] [facility] [address] [id number] [place] [address]- 5368 Oct, [facility] [place] [facility] [address] [id number] [place] [address]- 5628 Sep, [facility] [place] [facility] [address] [id number] [place] [address]- 0642 Sep, [facility] [place] [facility] [address] [id number] [place] [address]- 4075 Sep, [facility] [place] [facility] [address] [id number] [place] [address]- 5914 15 Sep, [address] [facility] [address] [id number] [place] [address]- 2354 14 Sep, 2013 [facility] [place] [facility] [address] [id number] [place] [address]- 1850 14 Sep, 2013 [facility] [address] [id number] [place] [address]- 9988 14 Sep, 2013 [facility] [place] [facility] [address] [id number] [place] [address]- 9473 Sep, [facility] [address] [id number] [place] [address]- 2390 Sep, [facility] [address] [id number] [place] [address]- 0054 Sep, [facility] [address] [id number] [place] [address]- 3738 Aug, [facility] [address] [id number] [place] [address]- 8630 Aug, [facility] [place] [facility] [address] [id number] [place] [address]- 4008 Jul, [facility] [address] [id number] [place] [address]- 5459 Jul, [facility] [place] [facility] [address] [id number] [place] [address]- 4386 Jul, [facility] [place] [facility] [address] [id number] [place] [address]- 3895 Jul, [facility] [place] [facility] [address] [id number] [place] [address]- 0236 Jul, [facility] [place] [facility] [address] [id number] [place] [address]- 8334 Jul, [facility] [place] [facility] [address] [id number] [place] [address]- 2344 Jul, [facility] [place] [facility] [address] [id number] [place] [address]- 6734 Jul, [facility] [place] [facility] [address] [id number] [place] [address]- 4715 Jul, [facility] [place] [facility] [address] [id number] [place] [address]- 5291 Jul, [facility] [place] [facility] [address] [id number] [place] [address]- 7989 Jul, [facility] [place] [facility] [address] [id number] [place] [address]- 6792 Jul, [facility] [place] [facility] [address] [id number] [place] [address]- 7974 Jul, [facility] [place] [facility] [address] [id number] [place] [address]- 0701 Jul, [facility] [place] [facility] [address] [id number] [place] [address]- 1486 Jul, [facility] [place] [facility] [address] [id number] [place] [address]- 9976 Jul, [facility] [place] [facility] [address] [id number] [place] [address]- 1751 Jul, [facility] [place] [facility] [address] [id number] [place] [address]- 5187 Jul, [facility] [place] [facility] [address] [id number] [place] [address]- 5341 Jul, [facility] [place] [facility] [address] [id number] [place] [address]- 9589 Jun, [facility] [place] [facility] [address] [id number] [place] [address]- 7928 Jun, [facility] [place] [facility] [address] [id number] [place] [address]- 6046 Jun, [facility] [place] [facility] [address] [id number] [place] [address]- 5515 16 Jun, 2012 [facility] [place] [facility] [address] [id number] [place] [address]- 7827 16 Jun, 2012 [facility] [place] [facility] [address] [id number] [place] [address]- 5032 16 Jun, 2012 [facility] [place] [facility] [address] [id number] [place] [address]- 9075 10 Jun, 2012 [facility] [place] [facility] [address] [id number] [place] [address]- 9418 10 Jun, 2012 [facility] [place] [facility] [address] [id number] [place] [address]- 7891 09 Jun, 2012 [facility] [place] [facility] [address] [id number] [place] [address]- 5843 09 Jun, 2012 [facility] [place] [facility] [address] [id number] [place] [address]- 1873 01 Jun, 2012 [facility] [place] [facility] [address] [id number] [place] [address]- 2027 26 Sep, 2012 [facility] [place] [facility] [address] [id number] [place] [address]- 5589 25 Sep, 2012 [facility] [place] [facility] [address] [facility] [id number] [place] [address]- 6262 19 Sep, 2012 [facility] [place] [facility] [address] [id number] [place] [address]- 0919 17 Sep, 2012 [facility] [place] [facility] [address] [id number] [place] [address]- 2548 11 Sep, 2012 [facility] [place] [facility] [address] [id number] [place] [address]- 6548 10 Sep, 2012 [facility] [place] [facility] [address] [id number] [place] [address]- 5008 09 Sep, 2012 [facility] [place] [facility] [address] [id number] [place] [address]- 3375 05 Sep, 2012 [facility] [place] [facility] [address] [id number] [place] [address]- 0836 Apr, [facility] [place] [facility] [address] [id number] [place] [address]- 5821 Apr, [facility] [place] [facility] [address] [id number] [place] [address]- 7113 Apr, [facility] [place] [facility] [address] [id number] [place] [address]- 5303 Apr, [facility] [place] [facility] [address] [id number] [place] [address]- 7831 Apr, [facility] [place] [facility] [address] [id number] [place] [address]- 0025 Mar, [facility] [place] [facility] [address] [id number] [place] [address]- 1164 Mar, [facility] [place] [facility] [address] [id number] [place] [address]- 8382 Mar, [facility] [place] [facility] [address] [id number] [place] [address]- 0399 Mar, [facility] [place] [facility] [address] [id number] [place] [address]- 3726 Mar, [facility] [place] [facility] [address] [id number] [place] [address]- 3361 Mar, [facility] [place] [facility] [address] [id number] [place] [address]- 3544 Mar, [facility] [place] [facility] [address] [id number] [place] [address]- 3963 Mar, [facility] [place] [facility] [address] [id number] [place] [address]- 6703 Feb, [facility] [place] [facility] [address] [id number] [place] [address]- 0431 Feb, [facility] [place] [facility] [address] [id number] [place] [address]- 4878 January, [facility] [address] [id number] [place] [address]- 9991 January, [facility] [address] [id number] [place] [address]- 8304 Dec, [facility] [address] [facility] [id number] [place] [address]- 3064 Dec, [facility] [address] [id number] [place] [address]- 9758 Nov, [facility] [address] [id number] [place] [address]- 3075 Nov, [facility] [address] [facility] [id number] [place] [address]- 5051 Nov, [facility] [address] [facility] [id number] [place] [address]- 6960 Nov, [facility] [address] [id number] [place] [address]- 1760 Oct, [facility] [address] [facility] [id number] [place] [address]- 1655 Oct, [facility] [address] [facility] [id number] [place] [address]- 9996 Oct, [facility] [address] [facility] [id number] [place] [address]- 4152 Oct, [facility] [place] [facility] [address] [facility] [id number] [place] [address]- 1341 16 Oct, 2012 [facility] [place] [facility] [address] [facility] [id number] [place] [address]- 1065 14 Oct, 2012 [facility] [place] [facility] [address] [facility] [id number] [place] [address]- 0702 08 Oct, 2012 [facility] [place] [facility] [address] [id number] [place] [address]- 5437 07 Oct, 2012 [facility] [place] [facility] [address] [id number] [place] [address]- 4907 Oct, [facility] [address] [id number] [place] [address]- 5391 Sep, [facility] [address] [id number] [place] [address]- 3768 Sep, [facility] [address] [id number] [place] [address]- 7669 Sep, [facility] [address] [id number] [place] [address]- 3600 Sep, [facility] [address] [id number] [place] [address]- 6732 Sep, [facility] [address] [id number] [place] [address]- 7291 Sep, [facility] [address] [id number] [place] [address]- 7696 Sep, [facility] [address] [id number] [place] [address]- 9348 Sep, [facility] [address] [id number] [place] [address]- 3429 Aug, [facility] [address] [id number] [place] [address]- 7016 Aug, [facility] [address] [id number] [place] [address]- 8469 Aug, [facility] [address] [id number] [place] [address]- 4781 Aug, [facility] [place] [facility] [address] [id number] [place] [address]- 4272 Aug, [facility] [address] [id number] [place] [address]- 8547 Aug, [facility] [address] [id number] [place] [address]- 8935 Aug, [facility] [place] [facility] [address] [id number] [place] [address]- 6593 Aug, [facility] [place] [facility] [address] [id number] [place] [address]- 5397 Jul, [facility] [place] [facility] [address] [facility] [id number] [place] [address]- 5046 Jul, [facility] [place] [facility] [address] [id number] [place] [address]- 4239 Jul, [facility] [place] [facility] [address] [id number] [place] [address]- 3065 Jul, [facility] [place] [facility] [address] [id number] [place] [address]- 9789 Jul, [facility] [place] [facility] [address] [id number] [place] [address]- 6161 Jul, [facility] [place] [facility] [address] [id number] [place] [address]- 1220 Jun, [facility] [place] [facility] [address] [id number] [place] [address]- 4599 Jun, [facility] [place] [facility] [address] [id number] [place] [address]- 4313 Jun, [facility] [place] [facility] [address] [id number] [place] [address]- 4657 Jun, [facility] [place] [facility] [address] [id number] [place] [address]- 3067 Jun, [facility] [place] [facility] [address] [id number] [place] [address]- 5640 Jun, [facility] [place] [facility] [address] [facility] [id number] [place] [address]- 4950 Jun, [facility] [place] [facility] [address] [facility] [id number] [place] [address]- 6099 Jun, [facility] [place] [facility] [address] [id number] [place] [address]- 4636 10 Jun, 2012 [facility] [address] [id number] [place] [address]- 3910 26 May, 2012 [facility] [place] [facility] [address] [id number] [place] [address]- 3446 24 May, 2012 [facility] [place] [facility] [address] [id number] [place] [address]- 6779 18 May, 2012 [facility] [place] [facility] [address] [id number] [place] [address]- 1046 30 Apr, 2012 [facility] [place] [facility] [address] [id number] [place] [address]- 4021 Apr, [facility] [place] [facility] [address] [id number] [place] [address]- 6810 Apr, [facility] [place] [facility] [address] [id number] [place] [address]- 4369 Apr, [facility] [place] [facility] [address] [id number] [place] [address]- 1909 Apr, [facility] [place] [facility] [address] [id number] [place] [address]- 3439 Apr, [facility] [place] [facility] [address] [id number] [place] [address]- 5272 Mar, [facility] [place] [facility] [address] [id number] [place] [address]- 2548 Mar, [facility] [place] [facility] [address] [id number] [place] [address]- 5317 Mar, [facility] [place] [facility] [address] [id number] [place] [address]- 2141 Mar, [facility] [place] [facility] [address] [id number] [place] [address]- 5114 Feb, [facility] [place] [facility] [address] [id number] [place] [address]- 2025 Feb, [facility] [address] [id number] [place] [address]- 7655 Feb, [facility] [place] [facility] [address] [id number] [place] [address]- 4659 Feb, [facility] [place] [facility] [address] [id number] [place] [address]- 7490 Feb, [facility] [place] [facility] [address] [id number] [place] [address]- 6258 January, [facility] [place] [facility] [address] [id number] [place] [address]- 8648 January, [facility] [place] [facility] [address] [id number] [place] [address]- 6178 January, [facility] [place] [facility] [address] [id number] [place] [address]- 4648 January, [facility] [place] [facility] [address] [id number] [place] [address]- 4222 January, [facility] [place] [facility] [address] [id number] [place] [address]- 0950 January, [facility] [place] [facility] [address] [id number] [place] [address]- 3559 Dec, [facility] [place] [facility] [address] [id number] [place] [address]- 6831 Dec, [facility] [place] [facility] [address] [id number] [place] [address]- 7556 Dec, [facility] [place] [facility] [address] [id number] [place] [address]- 3590 Dec, [facility] [place] [facility] [address] [id number] [place] [address]- 9640 Dec, [facility] [place] [facility] [address] [id number] [place] [address]- 7181 Nov, [facility] [place] [facility] [address] [id number] [place] [address]- 7191 14 Nov, 2011 [facility] [address] [id number] [place] [address]- 0836 12 Nov, 2011 [facility] [place] [facility] [address] [id number] [place] [address]- 9866 07 Nov, 2011 [facility] [place] [facility] [address] [id number] [place] [address]- 6346 29 Oct, 2011 [facility] [place] [facility] [address] [id number] [place] [address]- 7980 28 Oct, 2011 [facility] [place] [facility] [address] [id number] [place] [address]- 6461 24 Oct, 2011 [facility] [place] [facility] [address] [id number] [place] [address]- 9876 13 Oct, 2011 [facility] [place] [facility] [address] [id number] [place] [address]- 9546 08 Oct, 2011 [facility] [place] [facility] [address] [id number] [place] [address]- 2979 Sep, [facility] [place] [facility] [address] [id number] [place] [address]- 0583 Sep, [facility] [place] [facility] [address] [facility] [id number] [place] [address]- 0907 Sep, [facility] [place] [facility] [address] [id number] [place] [address]- 6629 Sep, [facility] [place] [facility] [address] [id number] [place] [address]- 5038 Sep, [facility] [place] [facility] [address] [id number] [place] [address]- 7794 Sep, [facility] [place] [facility] [address] [id number] [place] [address]- 5312 Aug, [facility] [place] [facility] [address] [id number] [place] [address]- 3338 Aug, [facility] [place] [facility] [address] [id number] [place] [address]- 6597 Aug, [facility] [place] [facility] [address] [id number] [place] [address]- 1690 Jul, [facility] [place] [facility] [address] [id number] [place] [address]- 9847 Jul, [facility] [place] [facility] [address] [id number] [place] [address]- 2243 Jul, [facility] [place] [facility] [address] [id number] [place] [address]- 4893 Jul, [facility] [place] [facility] [address] [id number] [place] [address]- 8282 Jun, [facility] [place] [facility] [address] [id number] [place] [address]- 8598 Jun, [facility] [place] [facility] [address] [id number] [place] [address]- 6550 Jun, [facility] [place] [facility] [address] [id number] [place] [address]- 5351 Jun, [facility] [place] [facility] [address] [id number] [place] [address] Jun, [facility] [place] [facility] [address] [id number] [place] [address] Jun, [facility] [place] [facility] [address] [id number] [place] [address] Mar, [facility] [place] [facility] [address] [id number] [place] [address] Dec, [facility] [place] [facility] [address] [id number] [place] [address] Dec, [facility] [place] [facility] [address] [id number] [place] [address] Nov, [facility] [place] [facility] [address] [id number] [place] [address] 16 Nov, 2010 [facility] [address] [id number] [place] [address] 10 Sep, 2010 [facility] [place] [facility] [address] [id number] [place] [address]46 31 Aug, 2010 [facility] [place] [facility] [address] [id number] [place] [address] 2546 29 Aug, 2010 [facility] [place] [facility] [address] [id number] [place] [address] 2546 29 Aug, 2010 [facility] [place] [facility] [address] [id number] [place] [address] 2546 29 Aug, 2010 [facility] [place] [facility] [address] [id number] [place] [address] 27 Aug, 2010 [facility] [place] [facility] [address] [id number] [place] [address] 14 Aug, 2010 [facility] [place] [facility] [address] [id number] [place] [address] 2547 08 Aug, 2010 [facility] [place] [facility] [address] [id number] [place] [address] 2540 08 Aug, 2010 [facility] [place] [facility] [address] [id number] [place] [address] Aug, [facility] [place] [facility] [address] [id number] [place] [address] 2546 06 Aug, 2010 [facility] [place] [facility] [address] [id number] [place] [address] 2546 06 Aug, 2010 [facility] [place] [facility] [address] [id number] [place] [address] 2546 Aug, [facility] [place] [facility] [address] [id number] [place] [address] 2546 30 Jul, 2010 [facility] [place] [facility] [address] [id number] [place] [address] 2546 30 Jul, 2010 [facility] [place] [facility] [address] [id number] [place] [address]- [address] 30 Jul, 2010 [facility] [address] [id number] [place] [address]- [address] 17 Jul, 2010 [facility] [place] [facility] [address] [id number] [place] [address] 2546 08 Jul, 2010 [facility] [address] [id number] [place] [address] Jul, [facility] [place] [facility] [address] [id number] [place] [address] 24 Jun, 2010 [facility] [id number] [place] [address], [place] [address]- [address] Jun, [facility] [place] [facility] [address] [id number] [place] [address] Jun, [facility] [address] [id number] [place] [address] Jun, [facility] [address] [id number] [place] [address] 16 Apr, 2010 [facility] [place] [facility] [address] [id number] [place] [address] Mar, [facility] [address] [id number] [place] [address] Feb, [facility] [place] [facility] [address] [id number] [place] [address] January, [facility] [place] [facility] [address] [id number] [place] [address] 15 Dec, 2009 [facility] [place] [facility] [address] [id number] [place] [address]- [address] 11 Nov, 2009 [facility] [place] [facility] [address] [id number] [place] [address] 31 Aug, 2009 [facility] [place] [facility] [address] [id number] [place] [address] Aug, [facility] [address] [facility] [id number] [place] [address] Aug, [facility] [address] [facility] [id number] [place] [address] Jul, [facility] [address] [facility] [id number] [place] [address] Jul, [facility] [address] [facility] [id number] [place] [address] Jul, [facility] [address] [facility] [id number] [place] [address] Jun, [facility] [address] [facility] [id number] [place] [address] Jun, [facility] [address] [facility] [id number] [place] [address] Jun, [facility] [address] [facility] [id number] [place] [address]- [address] Jun, [facility] [address] [facility] [id number] [place] [address] Jun, [facility] [address] [facility] [id number] [place] [address] Jun, [facility] [address] [facility] [id number] [place] [address] Apr, [facility] [address] [facility] [id number] [place] [address]- [address] Apr, [facility] [address] [facility] [id number] [place] [address] Feb, [facility] [address] [facility] [id number] [place] [address] January, [facility] [address] [facility] [id number] [place] [address]- [address] Dec, IMMUNIZATIONS No Known Immunizations SOCIAL HISTORY Never Assessed REASON FOR VISIT Pain management (chronic)/DM/f/u cancer treatment . Needs scheduled for Medicare [place] [facility] PLAN OF CARE Activity Details Follow Up 3 Months Reason:DM VITAL SIGNS Height 67 in 2018-01-10 Weight 357.2 lbs 2018-01-10 Temperature 97.6 degrees Fahrenheit 2018-01-10 Heart Rate 66 bpm 2018-01-10 Respiratory Rate 20 2018-01-10 BMI 55.94 kg/m2 2018-01-10 Blood pressure systolic 162 mmHg 2018-01-10 Blood pressure diastolic 82 mmHg 2018-01-10 MEDICATIONS Medication Instructions Dosage Frequency Start Date End Date Duration Status Zetia 10 MG Orally Once a day 1 tablet 24h Active Singulair 10 mg Orally Once a day 1 Tablet by Oral route 1 time per day 24h Nov, 90 days Active Fluticasone Propionate 50 MCG/ACT Nasally Once a day 1 spray in each nostril 24h 30 Active Voltaren 1 % Transdermal every 4-6 hours as needed 4grams to knee and hip 5 Active Naproxen 500 MG TAKE ONE TABLET BY MOUTH EVERY 12 HOURS NEEDED FOR HEADACHE 90 Active Trintellix 20 MG Orally Once a day 1 tablet 24h 30 days Active Ambien 10 MG Orally at bedtime as needed for sleep 1 tablet Nov, 30 days Active Aspirin 81 mg 1 tablet by Oral route 1 time per day Apr, Active Potassium Chloride Kathi ER 20 MEQ Orally Once a day 1 tablet with food 24h 30 days Active Abilify 30 MG Orally Once a day 1 tablet 24h 30 days Active Glucocard Expression Test - as directed Sep, Active Levemir 100 UNIT/ML Subcutaneous 2 times a day inject 100 units 12h 14 Oct 30 days Active Losartan Potassium 100 MG Orally Once a day 1 tablet 24h Active Potassium Chloride Kathi ER 20 MEQ Orally Once a day 2 tablets 24h 90 Not-Taking Imbruvica 140 MG Orally Once a day 3 capsules in the evening 24h Oct, Active Clopidogrel Bisulfate 75 MG Orally Once a day 1 tablet 24h 90 Active NovoLog Flexpen 100 UNIT/ML INJECT 30 UNITS SUBCUTANEOUSLY WITH BREAKFAST, 30 UNITS WITH LUNCH AND 40 UNITS WITH EVENING MEAL 90 Active Incruse Ellipta 62.5 MCG/INH Inhalation Once a day 1 puff 24h 90 Active Valium 5 MG Orally Twice a day as needed for anxiety 1 tablet Oct, 30 days Active Symbicort 80-4.5 MCG/ACT Inhalation Twice a day 2 puffs 12h 30 Active Victoza 18 MG/3ML INJECT 1.8MG SUBCUTANEOUSLY ONCE DAILY 90 Active Atorvastatin Calcium 20 MG Orally Once a day 1 tablet at bedtime 24h Active Allopurinol 300 MG Orally Once a day 1 tablet 24h Mar, 90 days Active Percocet 10-325 MG Orally 4 times a day 1 tablet as needed 6h 20 Nov, 2017 28 days Active Flomax 0.4 mg Orally Once a day 1 capsule 30 minutes after the same meal each day 24h 90 Active Zofran 4 MG Orally 3 times a day prn nausea and vomiting 1 tablet 5 Active Furosemide 20 MG Orally Once a day 3 tablets 24h Mar, 30 Active Nexium 40 MG Orally Once a day 1 capsule 24h 90 Active Vitamin D3 1,000 unit 2 capsule by Oral route 1 time per day Apr, Active Clonidine HCl 0.1 MG Orally 2 times a day 1 tablet 12h 90 Active Metoprolol Succinate ER 50 mg Orally twice a day 1 tablet 12h 90 Active Gabapentin 300 MG Orally 3 times a day 2 capsules 8h Mar, Active Ventolin HFA 108 (90 Base) MCG/ACT Inhalation every 4 hrs 2 puffs as needed 4h 30 Active RESULTS No Results PROCEDURES Procedure Date Ordered Result Body Site GLYCATED HEMOGLOBIN TEST January 10, 2018 DRUG TEST PRSMV CHEM ANLYZR January 10, 2018 [facility] VISIT ESTABLISHED PATIENT January 10, 2018 URINALYSIS, AUTO, W/O SCOPE January 10, 2018 INSTRUCTIONS MEDICATIONS ADMINISTERED No Known Medications MEDICAL (GENERAL) HISTORY Type Description Date Medical History type II diabetes Medical History coronary artery disease stress test 01/5015 Medical History chronic obstructive pulmonary disease (COPD) Medical History gastroesophageal reflux disease (GERD) Medical History acute renal failure Medical History erectile dysfunction Medical History hyperlipidemia Medical History obesity Medical History skin cancer-basal cell R taoism (removed) Medical History Arthritis Medical History degenerative [...] EGD ([facility]) 2009 Surgical History colonoscopy 2009 ([facility]), 2013 ([facility]) Surgical History heart 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 04/2014 Surgical History carotid US 05/2014 Surgical History resection of skin cancer from Right taoism Surgical History Biopsy of Lung Bilateral/Left lung lymph node 09/2016 Surgical History Bone Marrow Biopsy Surgical History port in the right chest wall 12/2016 Hospitalization History [facility] low potassium, low magnesium, chest painina 01/2015 Hospitalization History inability to urinate 09/16/15 Hospitalization History [facility] health early Hospitalization History hyperkalemia 10/2017 Hospitalization History fluid in lung
--- OUTSIDE RECORDS SUMMARY | 2018-08-08 14:19 | XMS REPORT ---
Author Author BEREKET NANCY Organization [facility] Address [address] [place] [address] Care Team Providers Care Weapons Specialist Name Role Phone CLAUDIANANCY CURRIE Unavailable PROBLEMS Type Condition ICD9-CM Code GVY12-OW Code Onset Dates Condition Status SNOMED Code Problem Chronic lymphocytic leukemia C91.10 Active 47802117 Problem Lymphocytosis D72.820 Active 67423000 Problem Eye exam abnormal R93.8 Active 144547157 Problem Eustachian tube dysfunction, unspecified laterality H69.80 Active 12189675 Problem Essential hypertension I10 Active 45647477 Problem Dysuria R30.0 Active 32831195 Problem Diabetic polyneuropathy associated with type 2 diabetes mellitus E11.42 Active 36116408 Problem Cough R05 Active 85289548 Problem Polyneuropathy associated with underlying disease G63 Active 318603533 Problem Retinal edema H35.81 Active 8269297 Problem Bilateral primary osteoarthritis of knee M17.0 Active 003979063 Problem Primary osteoarthritis of right knee M17.11 Active 233995342120835 Problem Pure hypercholesterolemia E78.00 Active 678798383 Problem DM neuro manif type II E11.49 Active 36747590 Problem Benign prostatic hyperplasia with lower urinary tract symptoms, unspecified morphology N40.1 Active 213244573 Problem Hypokalemia E87.6 Active 13979147 Problem 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 Active 718221426 Problem Anemia of chronic illness D63.8 Active 544853829 Problem Bipolar disorder, in partial remission, most recent episode depressed F31.75 Active 44326968 Problem Falling R29.6 Active 493607388 Problem Leukocytosis D72.829 Active 434719143 Problem Reactive airway disease J45.909 Active 979037830332 Problem Diabetes E11.9 Active 93722859 Problem Chronic pain G89.29 Active 68505036 Problem Anxiety F41.9 Active 39958430 Problem Morbid obesity E66.01 Active 911251997 Problem Bipolar I disorder, most recent episode (or current) mixed, moderate F31.62 Active 17365914 Problem Insomnia, unspecified type G47.00 Active 804118122 ALLERGIES No Information ENCOUNTERS Encounter Location Date Diagnosis [facility] [id number] [place] [address] 17592- 6252 Jun, [facility] [id number] [place] [address] 37976- 9423 Apr, [facility] [address] 78694- 2397 Apr, [facility] [address] 18013- 7114 Apr, Primary osteoarthritis of right knee M17.11 [facility] [address] 35018- 9588 Mar, [facility] [address] 25582- 8211 Mar, BMI 50.0-59.9, adult Z68.43 and Bipolar disorder, in partial remission, most recent episode depressed F31.75 [facility] [id number] [place] [address] 75124- 3774 Mar, Diabetes E11.9 ; Pure hypercholesterolemia E78.00 ; Essential hypertension I10 ; Nausea with vomiting, unspecified R11.2 and Headache, unspecified headache type R51 [facility] [id number] [place] [address] 40334- 2119 Mar, Bipolar I disorder, most recent episode (or current) mixed, moderate F31.62 [facility] [id number] [place] [address] 43008- 7065 Mar, Bipolar I disorder, most recent episode (or current) mixed, moderate F31.62 [facility] [id number] [place] [address] 04677- 7178 Mar, Chronic pain G89.29 [facility] [address] 93835- 2024 Mar, Bipolar I disorder, most recent episode (or current) mixed, moderate F31.62 [facility] [id number] [place] [address] 94857- 3999 Feb, Bipolar I disorder, most recent episode (or current) mixed, moderate F31.62 [facility] [id number] [place] [address] 86627- 7071 Feb, Chronic pain G89.29 [facility] [id number] [place] [address] 59588- 8299 Feb, Decubitus ulcer of right foot, stage 3 L89.893 and BMI 50.0- 59.9, adult Z68.43 [facility] [id number] [place] [address] 58723- 7740 Feb, Bipolar I disorder, most recent episode (or current) mixed, moderate F31.62 [facility] [id number] [place] [address] 36046- 3001 Feb, [facility] [id number] [place] [address] 36373- 3189 January, [facility] [id number] [place] [address] 51899- 5277 January, Chronic pain G89.29 [facility] [id number] [place] [address] 02438- 4807 January, Bipolar I disorder, most recent episode (or current) mixed, moderate F31.62 [facility] [id number] [place] [address] 45406- 3125 January, Bipolar I disorder, most recent episode (or current) mixed, moderate F31.62 [facility] [id number] [place] [address] 32758- 4882 Dec, Bipolar I disorder, most recent episode (or current) mixed, moderate F31.62 and BMI 50.0-59.9, adult Z68.43 [facility] [id number] [place] [address] 53763- 9184 Dec, Bipolar I disorder, most recent episode (or current) mixed, moderate F31.62 [facility] [id number] [place] [address] 31257- 0881 Dec, Chronic pain G89.29 [facility] [address] 33533- 5390 Dec, DM neuro manif type II E11.49 ; Right flank pain R10.9 ; 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 ; Encounter for medication monitoring Z51.81 and BMI 50.0-59.9, adult Z68.43 [facility] [address] 323101- 9912 Dec, Bipolar I disorder, most recent episode (or current) mixed, moderate F31.62 [facility] [address] 50870- 2992 Nov, Bipolar I disorder, most recent episode (or current) mixed, moderate F31.62 [facility] [address] 93025- 2300 Nov, Chronic pain G89.29 [facility] [id number] [place] [address] 20648- 0604 Nov, Bipolar I disorder, most recent episode (or current) mixed, moderate F31.62 [facility] [id number] [place] [address] 17148- 1286 Nov, Hypokalemia E87.6 [facility] [address] 99292- 6599 Nov, Bipolar I disorder, most recent episode (or current) mixed, moderate F31.62 [facility] [id number] [place] [address] 48902- 6350 Oct, Chronic pain G89.29 [facility] [address] [place] [address]- 4741 Oct, BMI 50.0-59.9, adult Z68.43 and Bipolar I disorder, most recent episode (or current) mixed, moderate F31.62 [facility] [id number] [place] [address] 71163- 9178 Oct, Bipolar I disorder, most recent episode (or current) mixed, moderate F31.62 [facility] [address] 05643- 3453 Oct, [facility] [address] 99288- 4245 Oct, Hypokalemia E87.6 [facility] [address] 57012- 4826 Oct, DM neuro manif type II E11.49 [facility] [address] 60105- 4575 Oct, Bipolar I disorder, most recent episode (or current) mixed, moderate F31.62 [facility] [address] 09137- 5456 Oct, Bipolar I disorder, most recent episode (or current) mixed, moderate F31.62 [facility] [id number] [place] [address] 10611- 4622 14 Oct, 2017 Hyperkalemia E87.5 ; Falling R29.6 ; BMI 50.0-59.9, adult Z68.43 and Acute left ankle pain M25.572 [facility] [id number] [place] [address] 23087- 5448 Oct, DM neuro manif type II E11.49 [facility] [address] 66401- 0875 Oct, [facility] [id number] [place] [address] 97253- 2179 Sep, Chronic pain G89.29 [facility] [id number] [place] [address] 00347- 3674 Sep, [facility] [id number] [place] [address] 26166- 0707 Sep, Bilateral primary osteoarthritis of knee M17.0 [facility] [id number] [place] [address] 67842- 7826 Sep, Generalized edema R60.1 [facility] [id number] [place] [address] 01198- 8278 Sep, Bipolar I disorder, most recent episode (or current) mixed, moderate F31.62 [facility] [id number] [place] [address] 67192- 8852 Sep, Hypoxia R09.02 ; Other hypervolemia E87.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 ; Anemia of chronic illness D63.8 and BMI 50.0- 59.9, adult Z68.43 [facility] [id number] [place] [address] 46725- 1339 Sep, [facility] [id number] [place] [address] 97690- 0321 Sep, Bipolar I disorder, most recent episode (or current) mixed, moderate F31.62 [facility] [id number] [place] [address] 23575- 6986 Aug, Chronic pain G89.29 [facility] [id number] [place] [address] 44770- 4371 Aug, Generalized edema R60.1 [facility] [id number] [place] [address] 31578- 8790 Aug, [facility] [id number] [place] [address] 21281- 4406 Aug, [facility] [address] [address]- 0301 14 Aug, 2017 Bipolar I disorder, most recent episode (or current) mixed, moderate F31.62 [facility] [id number] [place] [address] 65086- 0477 07 Aug, 2017 Bipolar I disorder, most recent episode (or current) mixed, moderate F31.62 [facility] [id number] [place] [address] 52719- 4393 04 Aug, 2017 Chronic pain G89.29 [facility] [id number] [place] [address] 62008- 0633 30 Jul, 2017 Bipolar I disorder, most recent episode (or current) mixed, moderate F31.62 [facility] [id number] [place] [address] 93176- 6463 Jul, Bipolar I disorder, most recent episode (or current) mixed, moderate F31.62 and BMI 60.0-69.9, adult Z68.44 [facility] [id number] [place] [address] 17859- 9249 16 Jul, 2017 Bipolar I disorder, most recent episode (or current) mixed, moderate F31.62 [facility] [address] [place] [address] 48627- 8217 06 Jul, 2017 Chronic pain G89.29 [facility] [address] [place] [address] 16311- 3245 Jul, Bipolar I disorder, most recent episode (or current) mixed, moderate F31.62 [facility] [address] [place] [address] 24600- 1718 Jun, Polyneuropathy associated with underlying disease G63 and Diabetes E11.9 [facility] [id number] [place] [address] 27702- 9392 16 Jun, 2017 Bipolar I disorder, most recent episode (or current) mixed, moderate F31.62 [facility] [id number] [place] [address] 13416- 7053 Jun, Chronic pain G89.29 [facility] [id number] [place] [address] 052427- 6819 27 May, 2017 Bipolar I disorder, most recent episode (or current) mixed, moderate F31.62 [facility] [id number] [place] [address] 57351- 3494 21 May, 2017 Bipolar I disorder, most recent episode (or current) mixed, moderate F31.62 [facility] [id number] [place] [address] 37642- 0389 20 May, 2017 Diabetic polyneuropathy associated with type 2 diabetes mellitus E11.42 [facility] [id number] [place] [address] 21349- 7163 18 May, 2017 Bipolar I disorder, most recent episode (or current) mixed, moderate F31.62 [facility] [id number] [place] [address] 51780- 5787 13 May, 2017 Bipolar I disorder, most recent episode (or current) mixed, moderate F31.62 [facility] [id number] [place] [address] 23475- 4590 May, Chronic pain G89.29 [facility] [id number] [place] [address] 37235- 1956 Apr, Bipolar I disorder, most recent episode (or current) mixed, moderate F31.62 [facility] [id number] [place] [address] 91114- 6981 Apr, [facility] [id number] [place] [address] 22463- 2851 Apr, Chronic pain G89.29 and DM neuro manif type II E11.49 [facility] [id number] [place] [address] 75143- 4843 Apr, [facility] [id number] [place] [address] 29983- 9114 Apr, Bipolar I disorder, most recent episode (or current) mixed, moderate F31.62 [facility] [address] [address]- 4871 Apr, Chronic pain G89.29 [facility] [id number] [place] [address] 93376- 1846 Apr, Iliotibial band syndrome, left M76.32 [facility] [id number] [place] [address] 900588- 1316 Apr, Bipolar I disorder, most recent episode (or current) mixed, moderate F31.62 [facility] [id number] [place] [address] 12701- 9012 Mar, Bipolar I disorder, most recent episode (or current) mixed, moderate F31.62 [facility] [id number] [place] [address] 05495- 7891 Mar, Bipolar I disorder, most recent episode (or current) mixed, moderate F31.62 [facility] [address] [place] [address] 15568- 7721 Mar, [facility] [id number] [place] [address] 44207- 3259 Mar, Bipolar I disorder, most recent episode (or current) mixed, moderate F31.62 [facility] [address] [place] [address] 85319- 0436 Mar, Chronic pain G89.29 [facility] [id number] [place] [address] 57280- 4814 Mar, Bipolar I disorder, most recent episode (or current) mixed, moderate F31.62 [facility] [address] [place] [address] 65042- 5376 Mar, Bipolar I disorder, most recent episode (or current) mixed, moderate F31.62 [facility] [address] [place] [address] 78292- 9286 Mar, Acute pain of left knee M25.562 ; Left hip pain M25.552 ; Generalized edema R60.1 and Tongue swelling R22.0 [facility] [id number] [place] [address] 22165- 8319 Mar, [facility] [id number] [place] [address] 81703- 1114 Feb, Chronic pain G89.29 [facility] [id number] [place] [address] 42401- 1401 Feb, Diabetes E11.9 [facility] [id number] [place] [address] 55001- 8385 January, Chronic pain G89.29 [facility] [id number] [place] [address] 57227- 2275 January, [facility] [id number] [place] [address] 94006- 0223 January, Bipolar I disorder, most recent episode (or current) mixed, moderate F31.62 [facility] [id number] [place] [address] 27639- 7398 Dec, Bipolar I disorder, most recent episode (or current) mixed, moderate F31.62 [facility] [id number] [place] [address] 96781- 1279 Dec, Chronic pain G89.29 [facility] [id number] [place] [address] 54872- 3956 Dec, Bipolar I disorder, most recent episode (or current) mixed, moderate F31.62 [facility] [id number] [place] [address] 92327- 5140 Dec, Diabetes E11.9 ; Essential hypertension I10 ; Chronic pain G89.29 and Morbid obesity E66.01 [facility] [id number] [place] [address] 02441- 6118 Dec, [facility] [id number] [place] [address] 72753- 6529 Dec, Bipolar I disorder, most recent episode (or current) mixed, moderate F31.62 [facility] [address] [place] [address] 89712- 5966 Dec, Bipolar I disorder, most recent episode (or current) mixed, moderate F31.62 [facility] [address] [address]- 0326 Nov, Chronic pain G89.29 [facility] [id number] [place] [address] 99725- 0196 Nov, Bipolar I disorder, most recent episode (or current) mixed, moderate F31.62 [facility] [id number] [place] [address] 02341- 2043 Nov, [facility] [id number] [place] [address] 51571- 8594 Nov, Bipolar I disorder, most recent episode (or current) mixed, moderate F31.62 [facility] [address] [address]- 0431 Nov, Bipolar I disorder, most recent episode (or current) mixed, moderate F31.62 [facility] [address] [address]- 9256 Nov, [facility] [address] [address]- 6136 Nov, [facility] [id number] [address]- 8646 Nov, [facility] [address], [place] [address]- 6080 Oct, Chronic pain G89.29 [facility] [address] [address]- 6746 Oct, Bipolar I disorder, most recent episode (or current) mixed, moderate F31.62 [facility] [id number] [place] [address] 34963- 8699 Oct, [facility] [id number] [place] [address] 40228- 6266 Oct, Chronic pain G89.29 ; Diabetes E11.9 ; Anxiety F41.9 and 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 [facility] [id number] [place] [address] 59790- 0996 Oct, [facility] [id number] [place] [address] 05242- 3693 Oct, Diabetes E11.9 [facility] [id number] [place] [address] 34021- 3963 Oct, Bipolar I disorder, most recent episode (or current) mixed, moderate F31.62 [facility] [id number] [place] [address] 07840- 7501 Sep, Chronic pain G89.29 [facility] [id number] [place] [address] 22730- 8977 Sep, Chronic pain G89.29 [facility] [id number] [place] [address] 03380- 7687 Aug, Chronic pain G89.29 [facility] [id number] [place] [address] 68579- 3714 Jul, [facility] [id number] [place] [address] 94401- 3711 Jul, Diabetes E11.9 [facility] [id number] [place] [address] 44772- 4361 Jul, Chronic pain G89.29 [facility] [id number] [place] [address] 02372- 7620 Jul, Bipolar I disorder, most recent episode (or current) mixed, moderate F31.62 [facility] [id number] [place] [address] 49729- 5965 Jun, Bipolar I disorder, most recent episode (or current) mixed, moderate F31.62 [facility] [id number] [place] [address] 36373- 9492 Jun, [facility] [address] 41966- 3071 Jun, Bipolar I disorder, most recent episode (or current) mixed, moderate F31.62 [facility] [address] 80714- 0377 May, Insomnia, unspecified type G47.00 [facility] [address] 87581- 7537 May, Bipolar I disorder, most recent episode (or current) mixed, moderate F31.62 [facility] [address] 86745- 9546 May, [facility] [address] 14571- 4039 May, Bipolar I disorder, most recent episode (or current) mixed, moderate F31.62 [place] [address] [address] May, Diabetes E11.9 and Essential hypertension I10 [place] [address] [address] Apr, Chronic pain G89.29 [place] [address] [address] Apr, Bipolar I disorder, most recent episode (or current) mixed, moderate F31.62 [place] [address] [address] Apr, [place] [address] [address] Apr, [place] [address] [address] Mar, Chronic pain G89.29 ; Headache, unspecified headache type R51 ; Neuropathy G62.9 ; Pain of right hip joint M25.551 and Essential hypertension I10 [place] [address] [place] [id number] [place] [address] Mar, Chronic pain G89.29 [facility] [address] [place] [id number] [place] [address]- [address] Mar, Bipolar I disorder, most recent episode (or current) mixed, moderate F31.62 [place] [address] [address] Feb, Bipolar I disorder, most recent episode (or current) mixed, moderate F31.62 and Insomnia, unspecified type G47.00 [place] [address] [place] [id number] [place] [address] Feb, Chronic pain G89.29 [place] [address] [address] Feb, Bipolar I disorder, most recent episode (or current) mixed, moderate F31.62 [place] [address] [address] January, Bipolar I disorder, most recent episode (or current) mixed, moderate F31.62 [place] [address] [place] [id number] [place] [address]- [address] January, Chronic pain G89.29 [place] [address] [address] January, Chronic pain G89.29 and Essential hypertension I10 [place] [address] [address] January, Bipolar I disorder, most recent episode (or current) mixed, moderate F31.62 [place] [address] [place] [id number] [place] [address] Dec, [place] [address] [place] [id number] [address] Dec, [facility] [id number] [place] [address] Dec, [facility] [id number] [place] [address] Dec, [facility] [address] [place] [id number] [place] [address] 05145- 2241 Nov, Reactive airway disease J45.909 [facility] [id number] [place] [address] 07452- 2783 Nov, [facility] [id number] [place] [address] 70920- 2070 Nov, [facility] [id number] [place] [address] 82188- 3202 Nov, [facility] [id number] [place] [address] 16360- 4931 Nov, [facility] [id number] [place] [address] 82161- 1020 Nov, Onychomycosis B35.1 ; Hammertoe M20.40 ; [place] or callus L84 and DM neuro manif type II E11.49 [facility] [id number] [place] [address] 22242- 6654 Nov, Chronic pain G89.29 ; Leukocytosis D72.829 and Diabetes E11.9 [facility] [address] [address] 5085 Nov, [facility] [id number] [place] [address] 79985- 2130 Oct, Bronchitis J40 [facility] [id number] [place] [address] 33535- 1459 Oct, [facility] [id number] [place] [address] 77404- 4976 Oct, [facility] [id number] [place] [address] 44775- 1230 Oct, Mastoiditis, unspecified laterality H70.90 and Type 2 diabetes mellitus with complication E11.8 [facility] [id number] [place] [address] 23823- 1131 Sep, [facility] [address] 94052- 9780 Sep, Dysuria R30.0 ; Cough R05 ; Benign prostatic hyperplasia with lower urinary tract symptoms, unspecified morphology N40.1 ; Hypokalemia E87.6 and Eustachian tube dysfunction, unspecified laterality H69.80 [facility] [id number] [place] [address] 63210- 9588 Sep, Moderate mixed bipolar I disorder F31.62 [address] [address] 82198- 3764 Sep, Hypokalemia E87.6 [facility] [id number] [place] [address] 74545- 0670 Sep, [facility] [id number] [place] [address] 55614- 4929 Sep, Upper respiratory tract infection, unspecified type J06.9 [place] [id number] [place] [address] 40582- 6133 Aug, [facility] [id number] [place] [address] 62927- 3017 Aug, Dysuria R30.0 [facility] [id number] [place] [address] 71089- 1689 Aug, [facility] [id number] [place] [address] 76720- 4049 Jul, [facility] [id number] [place] [address] 58702- 7810 Jul, [facility] [address] [address]- 6365 Jul, [facility] [id number] [place] [address] 05741- 2448 Jul, [facility] [address] [address]- 4130 Jun, [facility] [id number] [place] [address] 429082- 6356 Jun, [facility] [id number] [place] [address] 00392- 9958 Jun, [facility] [id number] [place] [address] 84856- 9267 May, [facility] [id number] [place] [address] 99789- 0209 May, Bipolar I disorder, most recent episode (or current) mixed, moderate 296.62 [facility] [id number] [place] [address] 17595- 4511 16 May, 2015 [facility] [id number] [place] [address] 09375- 4710 May, Bipolar I disorder, most recent episode (or current) mixed, moderate 296.62 and Major depressive disorder, recurrent episode, severe, specified as with psychotic behavior 296.34 [facility] [address] [address]- 1119 May, Bipolar I disorder, most recent episode (or current) mixed, moderate 296.62 [facility] [address] [address]- 9574 May, [facility] [id number] [address]- 4376 Apr, [facility] [address], [place] [address]- 5914 Apr, [facility] [id number] [place] [address] 92780- 1627 Apr, Unspecified disorder of kidney and ureter 593.9 and Diabetes mellitus type 2, uncontrolled 250.02 [facility] [id number] [place] [address] 93144- 6317 Apr, [facility] [id number] [place] [address] 76911- 6807 Apr, [facility] [address] 10396- 2667 Apr, [facility] [id number] [place] [address] 06576- 4852 Apr, [facility] [id number] [place] [address] 79856- 8438 Apr, Diabetes mellitus type II, uncontrolled 250.02 [facility] [id number] [place] [address] 12618- 3369 Apr, [facility] [id number] [place] [address] 94689- 6087 Mar, [facility] [id number] [place] [address] 85995- 7561 Mar, [facility] [id number] [place] [address] 82173- 9986 Mar, [facility] [id number] [place] [address] 08399- 4378 Mar, Major depressive disorder, recurrent episode, severe, specified as with psychotic behavior 296.34 and Bipolar I disorder, most recent episode (or current) mixed, moderate 296.62 [facility] [id number] [place] [address] 55846- 8866 Mar, Diabetes 250.00 ; Anuria 788.5 ; Nausea and vomiting 787.01 and Diarrhea 787.91 [facility] [id number] [place] [address] 97821- 2043 Mar, Diabetes 250.00 [facility] [address] [address]- 5256 Mar, [facility] [id number] [place] [address] 82212- 5125 Mar, Diabetes 250.00 [facility] [id number] [place] [address] 69553- 5310 Mar, [facility] [id number] [place] [address] 54011- 0953 Mar, [facility] [id number] [place] [address] 10014- 6421 Mar, [facility] [id number] [place] [address] 66107- 7072 Mar, [facility] [id number] [place] [address] 91011- 4496 Mar, Bipolar I disorder, most recent episode (or current) mixed, moderate 296.62 and Major depressive disorder, recurrent episode, severe, specified as with psychotic behavior 296.34 [facility] [id number] [place] [address] 78936- 2737 Mar, Magnesium deficiency 275.2 ; Hypokalemia 276.8 ; Nausea & vomiting 787.01 and Diabetes mellitus type 2, uncontrolled 250.02 [facility] [address] [address]- 8833 Feb, [facility] [id number] [place] [address] 65162- 6498 Feb, Bipolar I disorder, most recent episode (or current) mixed, moderate 296.62 [facility] [id number] [place] [address] 70424- 3286 Feb, Nausea and vomiting 787.01 ; Left elbow pain 719.42 ; Anuria 788.5 and Diabetes 250.00 [facility] [id number] [place] [address] 08176- 2726 Feb, [facility] [id number] [address]- 7998 Feb, Hypopotassemia 276.8 and Hypokalemia 276.8 [facility] [id number] [place] [address] 16076- 4161 Feb, Hypopotassemia 276.8 and Hypokalemia 276.8 [facility] [id number] [place] [address] 33386- 7760 Feb, Seborrheic keratoses 702.19 [facility] [id number] [place] [address] 00216- 9149 Feb, Hypopotassemia 276.8 and Low magnesium levels 275.2 [facility] [id number] [place] [address] 57626- 5650 January, [facility] [id number] [place] [address] 03588- 8432 January, [facility] [id number] [place] [address] 57624- 7575 January, [facility] [id number] [place] [address] 72609- 2175 January, Scalp lesion 709.9 [facility] [id number] [place] [address] 49874- 0817 January, [facility] [id number] [place] [address] 35137- 0746 Dec, Tear of medial cartilage or meniscus of knee, current 836.0 and 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 [facility] [address] [address]- 9530 Dec, [facility] [id number] [place] [address] 64381- 3482 Dec, [facility] [address], [place] [address]- 1568 Dec, Squamous cell carcinoma, 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 [facility] [place] [facility] [address] [id number] [place] [address]- 6902 14 Dec, 2014 [facility] [place] [facility] [address] [id number] [place] [address]- 3370 13 Dec, 2014 [facility] [place] [facility] [address] [id number] [place] [address]- 4545 Nov, [facility] [place] [facility] [address] [id number] [place] [address]- 0050 Nov, [facility] [place] [facility] [address] [id number] [place] [address]- 4996 Nov, [facility] [place] [facility] [address] [id number] [place] [address]- 0874 Nov, [facility] [place] [facility] [address] [id number] [place] [address]- 7130 Nov, [facility] [place] [facility] [address] [id number] [place] [address]- 6917 Nov, [facility] [place] [facility] [address] [id number] [place] [address]- 4702 Nov, [facility] [place] [facility] [address] [id number] [place] [address]- 5176 Nov, [facility] [place] [facility] [address] [id number] [place] [address]- 2919 Nov, [facility] [place] [facility] [address] [id number] [place] [address]- 2001 Nov, [facility] [place] [facility] [address] [id number] [place] [address]- 0349 Nov, [facility] [place] [facility] [address] [id number] [place] [address]- 0271 Nov, [facility] [place] [facility] [address] [id number] [place] [address]- 7981 Oct, [facility] [place] [facility] [address] [id number] [place] [address]- 2778 Oct, [facility] [place] [facility] [address] [facility] [id number] [place] [address]- 9487 Oct, [facility] [place] [facility] [address] [facility] [id number] [place] [address]- 6249 Oct, [facility] [place] [facility] [address] [facility] [id number] [place] [address]- 8683 Oct, 2014 [facility] [place] [facility] [address] [facility] [id number] [place] [address]- 2089 Oct, 2014 [facility] [place] [facility] [address] [facility] [id number] [place] [address]- 0228 Oct, 2014 [facility] [place] [facility] [address] [facility] [id number] [place] [address]- 1846 Oct, [facility] [place] [facility] [id number] [place] [address]- 4539 Oct, [facility] [place] [facility] [address] [facility] [id number] [place] [address]- 1684 Sep, [facility] [place] [facility] [address] [facility] [id number] [address]- 5157 Sep, [facility] [place] [facility] [address] [facility] [id number] [place] [address]- 9457 Sep, [facility] [place] [facility] [address] [facility] [id number], [place] [address]- 3386 Sep, [facility] [place] [facility] [address] [facility] [id number], [place] [address]- 4120 Sep, [facility] [place] [facility] [address] [facility] [id number] [address]- 8483 Sep, [facility] [place] [facility] [address] [facility] [id number] [address]- 1791 Sep, [facility] [place] [facility] [address] [facility] [id number], [place] [address]- 2030 Sep, [facility] [place] [facility] [address] [id number] [place] [address]- 5146 14 Sep, 2014 [facility] [place] [facility] [address] [id number] [place] [address]- 2415 14 Sep, 2014 [facility] [place] [facility] [address] [id number] [place] [address]- 7406 08 Sep, 2014 [facility] [place] [facility] [address] [id number] [place] [address]- 9529 08 Sep, 2014 [facility] [place] [facility] [address] [id number] [place] [address]- 5871 Sep, [facility] [place] [facility] [address] [id number] [place] [address]- 4370 Sep, [facility] [place] [facility] [address] [id number] [place] [address]- 2686 Sep, [facility] [place] [facility] [address] [id number] [place] [address]- 0224 Sep, [facility] [place] [facility] [address] [id number] [place] [address]- 3468 Aug, [facility] [place] [facility] [address] [id number] [place] [address]- 8230 31 Aug, 2014 [facility] [place] [facility] [address] [id number] [place] [address]- 6453 31 Aug, 2014 [facility] [place] [facility] [address] [id number] [place] [address]- 3590 31 Aug, 2014 [facility] [place] [facility] [address] [id number] [place] [address]- 3643 31 Aug, 2014 [facility] [place] [facility] [address] [id number] [place] [address]- 6516 31 Aug, 2014 [facility] [place] [facility] [address] [id number] [place] [address]- 6476 17 Aug, 2014 [facility] [place] [facility] [address] [id number] [place] [address]- 1593 Aug, [facility] [address] [id number] [place] [address]- 9633 Aug, [facility] [address] [id number] [place] [address]- 7539 Aug, [facility] [address] [id number] [place] [address]- 1384 Aug, [facility] [address] [place] [id number] Aug, [facility] [address] [id number] [place] [address]- 6489 Aug, [facility] [address] [id number] [place] [address]- 4859 Aug, [facility] [address] [id number] [place] [address]- 5496 Aug, [facility] [address] [id number] [place] [address]- 2409 Aug, [facility] [address] [id number] [place] [address]- 2026 Aug, [facility] [address] [id number] [place] [address]- 2831 Aug, [facility] [address] [id number] [place] [address]- 1611 Aug, [facility] [address] [id number] [place] [address]- 8048 Aug, [facility] [address] [id number] [place] [address]- 8672 Aug, [facility] [address] [id number] [place] [address]- 5288 Aug, [facility] [address] [id number] [place] 6704 Aug, [facility] [address] [id number] [place] [address]- 2651 Aug, [facility] [place] [facility] [address] [id number] [place] [address]- 1887 Aug, [facility] [place] [facility] [address] [id number] [place] 4341 Aug, [facility] [place] [facility] [address] [id number] [place] [address]- 0975 Aug, [facility] [place] [facility] [address] [id number] [place] [address]- 5240 Aug, [facility] [place] [facility] [address] [id number] [place] [address]- 8243 Aug, [facility] [place] [facility] [address] [id number] [place] [address]- 2995 Aug, [facility] [place] [facility] [address] [id number] [place] [address]- 4380 Jul, [facility] [place] [facility] [address] [id number] [place] [address]- 2062 Jul, [facility] [place] [facility] [address] [id number] [place] [address]- 5993 Jul, [facility] [place] [facility] [address] [id number] [place] [address]- 5566 Jul, [facility] [place] [facility] [address] [id number], [place] [address]- 5649 Jul, [facility] [place] [facility] [address] [id number], [place] [address]- 5547 Jul, [facility] [place] [facility] [address] [id number] [place] [address]- 3654 Jul, [facility] [place] [facility] [address] [id number] [place] [address]- 7845 Jul, [facility] [place] [facility] [address] [id number] [place] [address]- 4186 Jul, [facility] [place] [facility] [address] [id number] [place] [address]- 1957 Jul, [facility] [place] [facility] [address] [id number] [place] [address]- 0522 Jun, [facility] [place] [facility] [address] [id number] [place] [address]- 8044 Jun, [facility] [place] [facility] [address] [id number] [place] [address]- 3201 Jun, [facility] [place] [facility] [address] [id number] [place] [address]- 5757 Jun, [facility] [place] [facility] [address] [id number] [place] [address]- 5212 Jun, [facility] [place] [facility] [address] [id number] [place] [address]- 0515 Jun, [facility] [place] [facility] [address] [id number] [place] [address]- 6307 Jun, [facility] [place] [facility] [address] [id number] [place] [address]- 5842 Jun, [facility] [place] [facility] [address] [id number] [place] [address]- 6756 Jun, [facility] [place] [facility] [address] [id number] [place] [address]- 4586 Jun, [facility] [place] [facility] [address] [id number] [place] [address] 29 May, 2013 [facility] [place] [facility] [address] [id number] [place] [address] 29 Sep, 2013 [facility] [place] [facility] [address] [id number] [place] [address] 26 May, 2013 [facility] [place] [facility] [address] [id number] [place] [address]70 26 May, 2013 [facility] [place] [facility] [address] [id number] [place] [address] 17 May, 2013 [facility] [place] [facility] [address] [id number] [place] [address] 17 May, 2013 [facility] [place] [facility] [address] [id number] [place] [address] 2546 15 May, 2013 [facility] [place] [facility] [address] [id number] [place] [address] 2546 15 May, 2013 [facility] [place] [facility] [address] [id number] [place] [address] 2546 15 May, 2013 [facility] [place] [facility] [address] [id number] [place] [address] 1747 15 May, 2013 [facility] [place] [facility] [address] [id number] [place] [address] 10 May, 2013 [facility] [place] [facility] [address] [id number] [place] [address] 10 May, 2013 [facility] [place] [facility] [address] [id number] [place] [address] 09 May, 2013 [facility] [place] [facility] [address] [id number] [place] [address]- [address] 09 May, 2013 [facility] [place] [facility] [address] [id number] [place] [address] 04 May, 2013 [facility] [place] [facility] [address] [id number] [place] [address] May, 2013 [facility] [place] [facility] [address] [id number] [place] [address] Apr, [facility] [place] [facility] [address] [id number] [place] [address] Apr, [facility] [place] [facility] [address] [id number] [place] [address] 40[address] Apr, [facility] [place] [facility] [address] [id number] [place] [address] 406[address] Apr, [facility] [place] [facility] [address] [id number] [place] [address] Apr, [facility] [place] [facility] [address] [id number] [place] [address] Apr, [facility] [place] [facility] [address] [id number] [place] [address] Apr, [facility] [place] [facility] [address] [id number] [place] [address] Apr, [facility] [place] [facility] [address] [id number] [place] [address]90 Apr, [facility] [place] [facility] [address] [id number] [place] [address] 29[address] Apr, [facility] [place] [facility] [address] [id number] [place] [address] 37[address] Apr, [facility] [place] [facility] [address] [id number] [place] [address] 4186 Apr, [facility] [place] [facility] [address] [id number] [place] [address] Apr, [facility] [place] [facility] [address] [id number] [place] [address] 2946 Apr, [facility] [place] [facility] [address] [id number] [place] [address]- 1147 Apr, [facility] [place] [facility] [address] [id number] [place] [address] 86[address] Mar, [facility] [place] [facility] [address] [id number] [place] [address] 6[address] Mar, [facility] [place] [facility] [address] [id number] [place] [address] 1684 Mar, [facility] [place] [facility] [address] [id number] [place] [address] Mar, [facility] [place] [facility] [address] [id number] [place] [address] 97[address] Mar, [facility] [place] [facility] [address] [id number] [place] [address] Mar, 2013 [facility] [place] [facility] [address] [id number] [place] [address]80 Mar, 2013 [facility] [place] [facility] [address] [id number] [place] [address] 1313 Mar, 2013 [facility] [place] [facility] [address] [id number] [place] [address]- 41[address] Mar, 2013 [facility] [place] [facility] [address] [id number] [place] [address]- [address] Mar, 2013 [facility] [place] [facility] [address] [id number] [place] [address] Mar, 2013 [facility] [place] [facility] [address] [id number] [place] [address]- [address] Mar, 2013 [facility] [place] [facility] [address] [id number] [place] [address]246 Mar, 2013 [facility] [place] [facility] [address] [id number] [place] [address]- [address] Mar, 2013 [facility] [place] [facility] [address] [id number] [place] [address]- 9368 Mar, 2013 [facility] [place] [facility] [address] [id number] [place] [address]- [address]84 Mar, 2013 [facility] [place] [facility] [address] [id number] [place] [address] Mar, [facility] [place] [facility] [address] [id number] [place] [address]- [address] Mar, [facility] [place] [facility] [address] [id number] [place] [address]- 2902 Feb, [facility] [place] [facility] [address] [id number] [place] [address]- 0789 Feb, [facility] [place] [facility] [address] [id number] [place] [address]- 9430 Feb, [facility] [place] [facility] [address] [id number] [place] [address]- [address]268 Feb, [facility] [place] [facility] [address] [id number] [place] [address]- 6427 Feb, [facility] [place] [facility] [address] [id number] [place] [address]- 3083 Feb, [facility] [place] [facility] [address] [id number] [place] [address]- 7334 Feb, [facility] [place] [facility] [address] [id number] [place] [address] 4549 Feb, [facility] [place] [facility] [address] [id number] [place] [place] [address] Feb, [facility] [place] [facility] [address] [id number] [place] [address] Feb, [facility] [place] [facility] [address] [id number] [place] [address] 0181 Feb, [facility] [place] [facility] [address] [id number] [place] [address] 9663 Feb, [facility] [place] [facility] [address] [id number] [place] [address] 9313 Feb, [facility] [place] [facility] [address] [id number] [place] [address] 3107 Feb, [facility] [place] [facility] [address] [id number] [address] 40[address] January, [facility] [place] [facility] [address] [id number] [place] [address] 295[address] January, [facility] [place] [facility] [address] [id number] [place] [address]- 4891 January, [facility] [place] [facility] [address] [id number] [place] [address]- 6928 January, [facility] [place] [facility] [address] [id number] [place] [address] 4717 January, [facility] [address] [id number] [place] [address] 5880 January, [facility] [place] [facility] [address] [id number] [place] [address]- 8885 January, [facility] [place] [facility] [address] [id number] [place] [address]- 9743 January, [facility] [place] [facility] [address] [id number] [place] [address]- 6736 January, [facility] [place] [facility] [address] [id number] [place] [address]- 4610 January, [facility] [place] [facility] [address] [id number] [place] [address]- 5886 January, [facility] [address] [id number] [place] [address]- 4565 January, [facility] [place] [facility] [address] [id number] [place] [address]- 8918 January, [facility] [place] [facility] [address] [id number] [place] [address]- 9173 January, [facility] [address] [id number] [place] [address]- 6098 Dec, [facility] [place] [facility] [address] [id number] [place] [address]- 6905 Dec, [facility] [place] [facility] [address] [id number] [place] [address]- 6838 Dec, [facility] [place] [facility] [address] [id number] [place] [address]- 4171 Dec, [facility] [place] [facility] [address] [id number] [place] [address]- 1694 Dec, [facility] [place] [facility] [address] [id number] [place] [address]- 6146 Dec, [facility] [place] [facility] [address] [id number] [place] [address]- 8849 Dec, [facility] [place] [facility] [address] [id number] [place] [address]- 3181 Dec, [facility] [place] [facility] [address] [id number] [place] [address]- 4783 Dec, [facility] [place] [facility] [address] [id number] [place] [address]- 7632 Dec, [facility] [place] [facility] [address] [id number] [place] [address]- 0751 Nov, [facility] [place] [facility] [address] [id number] [place] [address]- 0508 Nov, [facility] [place] [facility] [address] [id number] [place] [address]- 2380 Nov, [facility] [place] [facility] [address] [id number] [place] [address]- 7690 Nov, [facility] [place] [facility] [address] [id number] [place] [address]- 9870 Nov, [facility] [place] [facility] [address] [id number] [place] [address]- 9490 Nov, [facility] [place] [facility] [address] [id number] [place] [address]- 4254 Nov, [facility] [place] [facility] [address] [id number] [place] [address]- 9771 Nov, [facility] [place] [facility] [address] [id number] [place] [address]- 9571 Nov, [facility] [place] [facility] [address] [id number] [place] [address]- 8068 Nov, [facility] [place] [facility] [address] [id number] [place] [address]- 4338 Oct, [facility] [place] [facility] [address] [id number] [place] [address]- 4291 Oct, [facility] [place] [facility] [address] [id number] [place] [address]- 0056 Oct, [facility] [place] [facility] [address] [id number] [place] [address]- 7676 Oct, [facility] [place] [facility] [address] [id number] [place] [address]- 6326 Oct, [facility] [place] [facility] [address] [id number] [place] [address]- 7257 Oct, [facility] [place] [facility] [address] [id number] [place] [address]- 2926 Oct, [facility] [place] [facility] [address] [id number] [place] [address]- 7636 Oct, [facility] [place] [facility] [address] [facility] [id number] [place] [address]- 6626 Oct, [facility] [place] [facility] [address] [id number] [place] [address]- 2138 Oct, [facility] [place] [facility] [address] [facility] [id number] [place] [address]- 3906 Oct, [facility] [place] [facility] [address] [facility] [id number] [place] [address]- 1759 Oct, [facility] [place] [facility] [address] [facility] [id number] [place] [address]- 2546 Oct, [facility] [place] [facility] [address] [id number] [place] [address] 2540 Oct, [facility] [place] [facility] [address] [id number] [place] [address]- 4576 Sep, [facility] [place] [facility] [address] [id number] [place] [address]- 6826 Sep, [facility] [place] [facility] [address] [facility] [id number] [place] [address]- 5272 15 Sep, 2013 [facility] [place] [facility] [address] [id number] [place] [address]- 1400 15 Sep, 2013 [facility] [place] [facility] [address] [id number] [place] [address]- 5300 14 Sep, 2013 [facility] [place] [facility] [address] [id number] [place] [address]- 2257 14 Sep, 2013 [facility] [place] [facility] [address] [id number] [place] [address]- 5781 14 Sep, 2013 [facility] [place] [facility] [address] [id number] [place] [address]- 9274 Sep, [facility] [place] [facility] [address] [id number] [place] [address]- 2954 08 Sep, 2013 [facility] [place] [facility] [address] [id number] [place] [address]- 5395 Sep, [facility] [place] [facility] [address] [id number] [place] [address]- 4207 10 Aug, 2013 [facility] [place] [facility] [address] [id number] [place] [address]- 7336 Aug, [facility] [place] [facility] [address] [id number] [place] [address]- 2333 Jul, [facility] [place] [facility] [address] [id number], [place] [address]- 8610 Jul, [facility] [place] [facility] [address] [id number], [place] [address]- 8884 Jul, [facility] [place] [facility] [address] [id number] [place] [address]- 3998 Jul, [facility] [place] [facility] [address] [id number] [place] [address]- 6321 Jul, [facility] [place] [facility] [address] [id number] [place] [address]- 9220 Jul, [facility] [place] [facility] [address] [id number] [place] [address]- 0078 12 Jul, 2013 [facility] [place] [facility] [address] [id number] [place] [address]- 6847 Jul, [facility] [place] [facility] [address] [id number] [place] [address]- 4612 Jul, [facility] [place] [facility] [address] [id number] [place] [address]- 0898 Jul, [facility] [place] [facility] [address] [id number] [place] [address]- 9230 Jul, [facility] [place] [facility] [address] [id number] [place] [address]- 9344 Jul, [facility] [place] [facility] [address] [id number] [place] [address]- 1760 Jul, [facility] [place] [facility] [address] [id number] [place] [address]- 5249 Jul, [facility] [place] [facility] [address] [id number] [place] [address]- 9331 Jul, [facility] [place] [facility] [address] [id number] [place] [address]- 3298 Jul, [facility] [place] [facility] [address] [facility] [id number] [place] [address]- 7302 Jul, [facility] [place] [facility] [address] [id number] [place] [address]- 8194 Jul, [facility] [place] [facility] [address] [id number], [place] [address]- 7426 Jul, [facility] [place] [facility] [address] [id number] [place] [address]- 5796 Jun, [facility] [place] [facility] [address] [id number] [place] [address]- 5071 Jun, [facility] [place] [facility] [address] [id number], [place] [address]- 3791 Jun, [facility] [place] [facility] [address] [id number] [place] [address]- 8251 16 Jun, 2012 [facility] [place] [facility] [address] [id number] [place] [address]- 2256 16 Jun, 2012 [facility] [place] [facility] [address] [id number] [place] [address]- 9706 16 Jun, 2012 [facility] [place] [facility] [address] [id number] [place] [address]- 1289 Jun, 2012 [facility] [place] [facility] [address] [id number] [place] [address]- 9324 10 Jun, 2013 [facility] [place] [facility] [address] [id number] [place] [address]- 9156 Jun, [facility] [place] [facility] [address] [id number] [place] [address]- 1798 Jun, [facility] [place] [facility] [address] [id number] [place] [address]- 9816 Jun, [facility] [place] [facility] [address] [id number] [place] [address]- 9740 26 May, 2012 [facility] [place] [facility] [address] [id number] [place] [address]- 9047 25 May, 2012 [facility] [place] [facility] [address] [id number] [place] [address]- 6979 19 Sep, 2012 [facility] [place] [facility] [address] [id number] [place] [address]- 4935 17 Sep, 2012 [facility] [place] [facility] [address] [id number] [place] [address]- 2902 11 Sep, 2012 [facility] [place] [facility] [address] [id number] [place] [address]- 2542 10 Sep, 2012 [facility] [place] [facility] [address] [id number] [place] [address]- 3198 09 Sep, 2012 [facility] [place] [facility] [address] [id number] [place] [address]- 8686 May, [facility] [place] [facility] [address] [id number] [place] [address]- 2254 Apr, [facility] [place] [facility] [address] [id number] [place] [address]- 1932 Apr, [facility] [place] [facility] [address] [id number] [place] [address]- 8203 Apr, [facility] [place] [facility] [address] [id number] [place] [address]- 1750 Apr, [facility] [place] [facility] [address] [id number] [place] [address]- 7847 Apr, [facility] [place] [facility] [address] [id number] [place] [address]- 5380 Mar, [facility] [place] [facility] [address] [id number] [place] [address]- 0242 Mar, [facility] [place] [facility] [address] [id number] [place] [address]- 3256 Mar, [facility] [place] [facility] [address] [id number] [place] [address]- 4322 Mar, [facility] [place] [facility] [address] [id number] [place] [address]- 5271 Mar, [facility] [place] [facility] [address] [id number] [place] [address]- 4442 Mar, [facility] [place] [facility] [address] [id number] [place] [address]- 9876 Mar, [facility] [place] [facility] [address] [id number] [place] [address]- 0592 Mar, [facility] [place] [facility] [address] [id number] [place] [address]- 3787 Feb, [facility] [place] [facility] [address] [id number] [place] [address]- 5944 Feb, [facility] [place] [facility] [address] [id number] [place] [address]- 7714 January, [facility] [address] [id number] [place] [address]- 6184 January, [facility] [address] [id number] [place] [address]- 7821 Dec, [facility] [address] [id number] [place] [address]- 0956 Dec, [facility] [address] [id number] [place] [address]- 6461 Nov, [facility] [address] [id number] [place] [address]- 7618 Nov, [facility] [address] [facility] [id number] [place] [address]- 7259 Nov, [facility] [address] [id number] [place] [address]- 2627 Nov, [facility] [address] [id number] [place] [address]- 7498 Oct, [facility] [address] [id number] [place] [address]- 0537 Oct, [facility] [address] [facility] [id number] [place] [address]- 7830 Oct, [facility] [address] [id number] [place] [address]- 3400 Oct, [facility] [address] [id number] [place] [address]- 0069 16 Oct, 2012 [facility] [address] [id number] [place] [address]- 0173 14 Oct, 2012 [facility] [address] [facility] [id number] [place] [address]- 4960 08 Oct, 2012 [facility] [address] [facility] [id number] [place] [address]- 3952 07 Oct, 2012 [facility] [address] [id number] [place] [address]- 7651 Oct, [facility] [address] [id number] [place] [address]- 6306 Sep, [facility] [address] [id number] [place] [address]- 4396 Sep, [facility] [address] [id number] [place] [address]- 0661 Sep, [facility] [address] [id number] [place] [address]- 1438 Sep, [facility] [address] [id number] [place] [address]- 2233 Sep, [facility] [address] [id number] [place] [address]- 1280 Sep, [facility] [address] [id number] [place] [address]- 3953 Sep, [facility] [address] [id number] [place] [address]- 2015 Sep, [facility] [address] [id number] [place] [address]- 0906 Aug, [facility] [address] [id number] [place] [address]- 8216 Aug, [facility] [place] [facility] [address] [id number] [place] [address]- 5061 Aug, [facility] [place] [facility] [address] [id number] [place] [address]- 7526 Aug, [facility] [place] [facility] [address] [id number] [place] [address]- 0597 Aug, [facility] [place] [facility] [address] [id number] [place] [address]- 7634 Aug, [facility] [place] [facility] [address] [id number] [place] [address]- 2223 Aug, [facility] [place] [facility] [address] [id number] [place] [address]- 8862 Aug, [facility] [place] [facility] [address] [id number] [place] [address]- 5871 Jul, [facility] [place] [facility] [address] [id number] [place] [address]- 8799 Jul, [facility] [place] [facility] [address] [id number] [place] [address]- 5663 Jul, [facility] [place] [facility] [address] [id number] [place] [address], [place] [address]- 8270 Jul, [facility] [place] [facility] [address] [id number] [place] [address]- 4194 Jul, [facility] [place] [facility] [address] [id number] [place] [address], [place] [address]- 1140 Jul, [facility] [place] [facility] [address] [id number] [place] [address]- 3763 Jun, [facility] [place] [facility] [address] [id number] [place] [address]- 0281 Jun, [facility] [place] [facility] [address] [facility] [id number] [place] [address]- 0283 Jun, [facility] [place] [facility] [address] [id number] [place] [address]- 7695 Jun, [facility] [place] [facility] [address] [id number] [place] [address]- 5628 Jun, [facility] [place] [facility] [address] [id number] [place] [address]- 8187 Jun, [facility] [place] [facility] [address] [facility] [id number] [place] [address]- 0675 Jun, [facility] [place] [facility] [address] [id number] [place] [address]- 2232 Jun, [facility] [place] [facility] [address] [id number] [place] [address]- 1465 Jun, [facility] [place] [facility] [address] [id number] [place] [address]- 1396 26 May, 2012 [facility] [place] [facility] [address] [id number] [place] [address]- 3617 24 May, 2012 [facility] [place] [facility] [address] [id number] [place] [address]- 3399 May, [facility] [place] [facility] [address] [id number] [place] [address]- 4702 Apr, [facility] [place] [facility] [address] [id number] [place] [address]- 6676 Apr, [facility] [place] [facility] [address] [id number] [place] [address]- 6153 Apr, [facility] [place] [facility] [address] [id number] [place] [address]- 1216 Apr, [facility] [place] [facility] [address] [id number] [place] [address]- 5575 Apr, [facility] [place] [facility] [address] [id number] [place] [address]- 9833 Apr, [facility] [place] [facility] [address] [id number] [place] [address]- 7198 Mar, [facility] [place] [facility] [address] [id number] [address]- 2712 Mar, [facility] [place] [facility] [address] [id number] [place] [address]- 4749 Mar, [facility] [place] [facility] [address] [id number] [place] [address]- 0728 Mar, [facility] [place] [facility] [address] [id number] [place] [address]- 5510 Feb, [facility] [place] [facility] [address] [id number], [place] [address]- 3843 Feb, [facility] [address] [id number] [place] [address]- 3523 Feb, [facility] [place] [facility] [address] [id number] [place] [address]- 9596 Feb, [facility] [address] [id number] [place] [address]- 9976 Feb, [facility] [place] [facility] [address] [id number] [place] [address]- 6603 January, [facility] [address] [id number] [place] [address]- 9558 January, [facility] [address] [id number] [place] [address]- 9641 January, [facility] [address] [id number] [place] [address]- 7478 January, [facility] [address] [id number] [place] [address]- 2567 January, [facility] [address] [id number] [place] [address]- 3408 January, [facility] [address] [id number] [place] [address]- 8701 Dec, [facility] [place] [facility] [address] [id number] [place] [address] Dec, [facility] [place] [facility] [address] [id number] [place] [address] Dec, [facility] [place] [facility] [address] [id number] [place] [address] Dec, [facility] [place] [facility] [address] [id number] [place] [address] Dec, [facility] [place] [facility] [address] [id number] [place] [address] Nov, [facility] [place] [facility] [address] [id number] [place] [address] 14 Nov, 2011 [facility] [place] [facility] [address] [id number] [place] [address] 12 Nov, 2011 [facility] [place] [facility] [address] [id number] [place] [address] 07 Nov, 2011 [facility] [place] [facility] [address] [id number] [place] [address] 29 Oct, 2011 [facility] [place] [facility] [address] [id number] [place] [address] 28 Oct, 2011 [facility] [place] [facility] [address] [id number] [place] [address] 24 Oct, 2011 [facility] [place] [facility] [address] [id number] [place] [address] Oct, [facility] [place] [facility] [address] [id number] [place] [address] 08 Oct, 2011 [facility] [place] [facility] [address] [id number] [place] [address] Sep, [facility] [place] [facility] [address] [id number] [place] [address] Sep, [facility] [place] [facility] [address] [id number] [place] [address] Sep, [facility] [place] [facility] [address] [id number] [place] [address] Sep, [facility] [place] [facility] [address] [id number] [place] [address] Sep, [facility] [place] [facility] [address] [id number] [place] [address] Sep, [facility] [place] [facility] [address] [id number] [place] [address]268 Aug, [facility] [place] [facility] [address] [id number] [place] [address] Aug, [facility] [place] [facility] [address] [id number] [place] [address] Aug, [facility] [place] [facility] [address] [id number] [place] [address] Jul, [facility] [place] [facility] [address] [id number] [place] [address]287 Jul, [facility] [place] [facility] [address] [id number] [place] [address] Jul, [facility] [place] [facility] [address] [id number] [place] [address] Jul, [facility] [place] [facility] [address] [id number] [place] [address] Jun, [facility] [place] [facility] [address] [id number] [place] [address] Jun, [facility] [place] [facility] [address] [id number] [place] [address] Jun, [facility] [place] [facility] [address] [id number] [place] [address] Jun, [facility] [place] [facility] [address] [id number] [place] [address] Jun, [facility] [place] [facility] [address] [id number] [place] [address] 74[address] Jun, [facility] [place] [facility] [address] [id number] [place] [address] 7945 Mar, [facility] [place] [facility] [address] [id number] [place] [address]471 Dec, [facility] [place] [facility] [address] [id number] [place] [address] Dec, [facility] [place] [facility] [address] [id number] [place] [address] Nov, [facility] [place] [facility] [address] [id number] [place] [address] 1673 16 Nov, 2010 [facility] [address] [id number] [place] [address] 10 Sep, 2010 [facility] [address] [id number] [place] [address] 89[address] 31 Aug, 2010 [facility] [address] [id number] [place] [address] 2546 29 Aug, 2010 [facility] [address] [id number] [place] [address] 2545 29 Aug, 2010 [facility] [address] [id number] [place] [address]- [address]686 29 Aug, 2010 [facility] [address] [id number] [place] [address] 9627 27 Aug, 2010 [facility] [address] [id number] [place] [address] 2543 14 Aug, 2010 [facility] [address] [id number] [place] [address] 08 Aug, 2010 [facility] [address] [id number] [place] [address] 2542 08 Aug, 2010 [facility] [address] [id number] [place] [address] 07 Aug, 2010 [facility] [address] [id number] [place] [address] 2546 06 Aug, 2010 [facility] [address] [id number] [place] [address] 2546 Aug, [facility] [address] [id number] [place] [address] 2546 Aug, [facility] [address] [id number] [place] [address] 2546 Jul, [facility] [address] [id number] [place] [address] 1520 Jul, [facility] [place] [facility] [address] [id number] [place] [address] 30 Jul, 2010 [facility] [place] [facility] [address] [id number] [place] [address] 0186 Jul, [facility] [place] [facility] [address] [id number] [place] [address] 8255 Jul, [facility] [place] [facility] [address] [id number] [place] [address] Jul, [facility] [place] [facility] [address] [id number] [place] [address]- 39[address] 24 Jun, 2010 [facility] [place] [facility] [address] [id number] [place] [address]344 Jun, [facility] [place] [facility] [address] [id number] [place] [address]32 Jun, [facility] [place] [facility] [address] [id number] [place] [address] 2448 Jun, [facility] [place] [facility] [address] [id number] [place] [address] 3565 Apr, [facility] [place] [facility] [address] [id number] [place] [address] 6086 Mar, [facility] [place] [facility] [address] [id number] [place] [address] Feb, [facility] [place] [facility] [address] [id number] [address] January, [facility] [place] [facility] [address] [id number] [place] [address]- 2769 15 Dec, 2009 [facility] [place] [facility] [address] [id number], [place] [address] Nov, [facility] [place] [facility] [address] [id number] [place] [address] 31 Aug, 2009 [facility] [place] [facility] [address] [id number], [place] [address] Aug, [facility] [address] [facility] [id number], [place] [address] Aug, [facility] [address] [facility] [id number] [id number] Jul, [facility] [address] [facility] [id number] [address] Jul, [facility] [address] [facility] [id number] [address] Jul, [facility] [address] [facility] [id number] [place] [id number] Jun, [facility] [address] [facility] [id number][place] [address] Jun, [facility] [id number] [address] Jun, [facility] [address] [facility] [id number], [place] [address] Jun, [facility] [id number] [address] Jun, [facility] [address] [id number], [place] [address] Jun, [facility] [id number] [address] Apr, [facility] [address] [facility] [id number], [place] [address] Apr, [facility] [address] [facility] [id number], [place] [address] Feb, [facility] [address] [facility] [id number][place] [address] January, [facility] [address] [facility] [id number][place] [address] Apr, 2009 IMMUNIZATIONS No Known Immunizations SOCIAL HISTORY Never Assessed REASON FOR VISIT BH f/u [facility] PLAN OF CARE Activity Details Follow Up 3 Months, prn Reason: VITAL SIGNS Height 67 in 2018-01-16 Weight 346 lbs 2018-01-16 Heart Rate 68 bpm 2018-01-16 Respiratory Rate 20 2018-01-16 BMI 54.19 kg/m2 2018-01-16 Blood pressure systolic 168 mmHg 2018-01-16 Blood pressure diastolic 94 mmHg 2018-01-16 MEDICATIONS Medication Instructions Dosage Frequency Start Date End Date Duration Status Vitamin D3 1,000 unit 2 capsule by Oral route 1 time per day Apr, Active Incruse Ellipta 62.5 MCG/INH Inhalation Once a day 1 puff 24h 90 Active Allopurinol 300 MG Orally Once a day 1 tablet 24h Mar, 90 days Active Levemir 100 UNIT/ML Subcutaneous 2 times a day inject 100 units 12h Oct 30 days Active Flomax 0.4 mg Orally Once a day 1 capsule 30 minutes after the same meal each day 24h 90 Active Gabapentin 300 MG Orally 3 times a day 2 capsules 8h Mar, Active Imbruvica 140 MG Orally Once a day 3 capsules in the evening 24h Oct, Active Percocet 10-325 MG Orally 4 times a day 1 tablet as needed 6h Dec, 28 days Active Metoprolol Succinate ER 50 mg Orally twice a day 1 tablet 12h 90 Active Losartan Potassium 100 MG Orally Once a day 1 tablet 24h Active Zofran 4 MG Orally 3 times a day prn nausea and vomiting 1 tablet 5 Active Aspirin 81 mg 1 tablet by Oral route 1 time per day Apr, Active Abilify 30 MG Orally Once a day 1 tablet 24h Active Victoza 18 MG/3ML INJECT 1.8MG SUBCUTANEOUSLY ONCE DAILY 90 Active Trintellix 20 MG Orally Once a day 1 tablet 24h Active Nexium 40 MG Orally Once a day 1 capsule 24h 90 Active Ventolin HFA 108 (90 Base) MCG/ACT Inhalation every 4 hrs 2 puffs as needed 4h 30 Active Zetia 10 MG Orally Once a day 1 tablet 24h Active Atorvastatin Calcium 20 MG Orally Once a day 1 tablet at bedtime 24h Active Fluticasone Propionate 50 MCG/ACT Nasally Once a day 1 spray in each nostril 24h 30 Active NovoLog Flexpen 100 UNIT/ML INJECT 30 UNITS SUBCUTANEOUSLY WITH BREAKFAST, 30 UNITS WITH LUNCH AND 40 UNITS WITH EVENING MEAL 90 Active Symbicort 80-4.5 MCG/ACT Inhalation Twice a day 2 puffs 12h 30 Active Voltaren 1 % Transdermal every 4-6 hours as needed 4grams to knee and hip 5 Active Potassium Chloride Kathi ER 20 MEQ Orally Once a day 1 tablet with food 24h 30 days Active Clonidine HCl 0.1 MG Orally 2 times a day 1 tablet 12h 90 Active Naproxen 500 MG TAKE ONE TABLET BY MOUTH EVERY 12 HOURS NEEDED FOR HEADACHE 90 Active Clopidogrel Bisulfate 75 MG Orally Once a day 1 tablet 24h 90 Active Glucocard Expression Test - as directed Sep, Active Potassium Chloride Kathi ER 20 MEQ Orally Once a day 2 tablets 24h 90 Not-Taking Singulair 10 mg Orally Once a day 1 Tablet by Oral route 1 time per day 24h Nov, 90 days Active Ambien 10 MG Orally at bedtime as needed for sleep 1 tablet Nov, Active Furosemide 20 MG Orally Once a day 3 tablets 24h Mar, 30 Active Valium 5 MG Orally Twice a day as needed for anxiety 1 tablet Oct, Active RESULTS No Results PROCEDURES Procedure Date Ordered Result Body Site [facility] VISIT ESTABLISHED PATIENT January 16, 2018 INSTRUCTIONS MEDICATIONS ADMINISTERED No Known [...] 2009 Surgical History colonoscopy 2009 ([facility]), 2013 ([facility]) Surgical History heart cath: CAD w/ PTCA [...] inability to urinate 09/16/[address] [facility] health early Hospitalization History hyperkalemia 10/2017 Hospitalization History fluid in lung
[2018-08-08 14:20] VITALS: BP 177/64
--- OUTSIDE RECORDS SUMMARY | 2018-08-08 14:21 | XMS REPORT ---
Author Author ROSELINE LUIS Organization [facility] Address [address] [place] [address] Care Team Providers Care Sampler Radioactive Waste Name Role Phone ROSELINE LUIS Unavailable PROBLEMS Type Condition ICD9-CM Code ORD93-JL Code Onset Dates Condition Status SNOMED Code Problem Chronic lymphocytic leukemia C91.10 Active 72674437 Problem Lymphocytosis D72.820 Active 29383096 Problem Eye exam abnormal R93.8 Active 871299582 Problem Eustachian tube dysfunction, unspecified laterality H69.80 Active 98444177 Problem Essential hypertension I10 Active 65303952 Problem Dysuria R30.0 Active 98696147 Problem Diabetic polyneuropathy associated with type 2 diabetes mellitus E11.42 Active 63504055 Problem Cough R05 Active 65760085 Problem Polyneuropathy associated with underlying disease G63 Active 615850679 Problem Retinal edema H35.81 Active 6451829 Problem Bilateral primary osteoarthritis of knee M17.0 Active 482369581 Problem Primary osteoarthritis of right knee M17.11 Active [id number] Problem Pure hypercholesterolemia E78.00 Active 341059020 Problem DM neuro manif type II E11.49 Active 63727080 Problem Benign prostatic hyperplasia with lower urinary tract symptoms, unspecified morphology N40.1 Active 849367210 Problem Hypokalemia E87.6 Active 38469861 Problem 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 Active 646005226 Problem Anemia of chronic illness D63.8 Active 223585804 Problem Bipolar disorder, in partial remission, most recent episode depressed F31.75 Active 10659939 Problem Falling R29.6 Active 905405137 Problem Leukocytosis D72.829 Active 284493117 Problem Reactive airway disease J45.909 Active 184597355371 Problem Diabetes E11.9 Active 91843020 Problem Chronic pain G89.29 Active 45678383 Problem Anxiety F41.9 Active 63089959 Problem Morbid obesity E66.01 Active 782595093 Problem Bipolar I disorder, most recent episode (or current) mixed, moderate F31.62 Active 88039344 Problem Insomnia, unspecified type G47.00 Active [id number] ALLERGIES No Information ENCOUNTERS Encounter Location Date Diagnosis [facility] [id number] [place] [address] 81176- 3426 Jun, [facility] [address] 76379- 2329 Apr, [facility] [address] 49600- 0345 Apr, [facility] [address] 39821- 6883 Apr, Primary osteoarthritis of right knee M17.11 [facility] [address] 56212- 7024 Mar, [facility] [address] 69517- 0768 Mar, BMI 50.0-59.9, adult Z68.43 and Bipolar disorder, in partial remission, most recent episode depressed F31.75 [facility] [address] 71740- 5405 Mar, Diabetes E11.9 ; Pure hypercholesterolemia E78.00 ; Essential hypertension I10 ; Nausea with vomiting, unspecified R11.2 and Headache, unspecified headache type R51 [facility] [id number] [place] [address] 76575- 3949 Mar, Bipolar I disorder, most recent episode (or current) mixed, moderate F31.62 [facility] [id number] [place] [address] 39294- 4604 Mar, Bipolar I disorder, most recent episode (or current) mixed, moderate F31.62 [facility] [id number] [place] [address] 60348- 2635 Mar, Chronic pain G89.29 [facility] [address] 88817- 6724 Mar, Bipolar I disorder, most recent episode (or current) mixed, moderate F31.62 [facility] [address] [place] [address] 72483- 3772 Feb, Bipolar I disorder, most recent episode (or current) mixed, moderate F31.62 [facility] [address] [place] [address] 67629- 7110 Feb, Chronic pain G89.29 [facility] [id number] [place] [address] 00085- 3464 Feb, Decubitus ulcer of right foot, stage 3 L89.893 and BMI 50.0- 59.9, adult Z68.43 [facility] [id number] [place] [address] 25585- 7100 Feb, Bipolar I disorder, most recent episode (or current) mixed, moderate F31.62 [facility] [id number] [place] [address] 15208- 6201 Feb, [facility] [id number] [place] [address] 15964- 9504 January, [facility] [id number] [place] [address] 55951- 7791 January, Chronic pain G89.29 [facility] [address] [place] [address] 55248- 8939 January, Bipolar I disorder, most recent episode (or current) mixed, moderate F31.62 [facility] [address] [place] [address] 86454- 1390 January, Bipolar I disorder, most recent episode (or current) mixed, moderate F31.62 [facility] [address] [place] [address] 82008- 3464 Dec, Bipolar I disorder, most recent episode (or current) mixed, moderate F31.62 and BMI 50.0-59.9, adult Z68.43 [facility] [id number] [place] [address] 22033- 9952 Dec, Bipolar I disorder, most recent episode (or current) mixed, moderate F31.62 [facility] [id number] [place] [address] 12240- 7384 Dec, Chronic pain G89.29 [facility] [address] 12670- 5142 Dec, DM neuro manif type II E11.49 ; Right flank pain R10.9 ; 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 ; Encounter for medication monitoring Z51.81 and BMI 50.0-59.9, adult Z68.43 [facility] [address] 86778- 6803 Dec, Bipolar I disorder, most recent episode (or current) mixed, moderate F31.62 [facility] [address] 90894- 7696 Nov, Bipolar I disorder, most recent episode (or current) mixed, moderate F31.62 [facility] [id number] [place] [address] 25323- 3848 Nov, Chronic pain G89.29 [facility] [id number] [place] [address] 76193- 3893 Nov, Bipolar I disorder, most recent episode (or current) mixed, moderate F31.62 [facility] [id number] [place] [address] 81713- 5149 Nov, Hypokalemia E87.6 [facility] [id number] [place] [address] 78023- 7617 Nov, Bipolar I disorder, most recent episode (or current) mixed, moderate F31.62 [facility] [id number] [place] [address] 10527- 1112 Oct, Chronic pain G89.29 [facility] [address] 44483- 9838 Oct, BMI 50.0-59.9, adult Z68.43 and Bipolar I disorder, most recent episode (or current) mixed, moderate F31.62 [facility] [id number] [place] [address] 45537- 7574 Oct, Bipolar I disorder, most recent episode (or current) mixed, moderate F31.62 [facility] [id number] [place] [address] 23359- 6869 Oct, [facility] [id number] [place] [address] 32372- 6097 Oct, Hypokalemia E87.6 [facility] [id number] [place] [address] 56974- 4213 Oct, DM neuro manif type II E11.49 [facility] [id number] [place] [address] 58976- 6988 Oct, Bipolar I disorder, most recent episode (or current) mixed, moderate F31.62 [facility] [id number] [place] [address] 58650- 0613 Oct, Bipolar I disorder, most recent episode (or current) mixed, moderate F31.62 [facility] [id number] [place] [address] 22141- 8103 Oct, Hyperkalemia E87.5 ; Falling R29.6 ; BMI 50.0-59.9, adult Z68.43 and Acute left ankle pain M25.572 [facility] [id number] [place] [address] 64737- 6650 Oct, DM neuro manif type II E11.49 [facility] [id number] [place] [address] 83800- 8606 Oct, [facility] [id number] [place] [address] 54037- 4071 Sep, Chronic pain G89.29 [facility] [id number] [place] [address] 03029- 6748 Sep, [facility] [address] 19367- 7100 Sep, Bilateral primary osteoarthritis of knee M17.0 [facility] [id number] [place] [address] 03989- 0511 Sep, Generalized edema R60.1 [facility] [address] 86806- 3476 Sep, Bipolar I disorder, most recent episode (or current) mixed, moderate F31.62 [facility] [id number] [place] [address] 11352- 2594 Sep, Hypoxia R09.02 ; Other hypervolemia E87.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 ; Anemia of chronic illness D63.8 and BMI 50.0- 59.9, adult Z68.43 [facility] [id number] [place] [address] 14112- 8201 Sep, [facility] [id number] [place] [address] 04125- 2100 Sep, Bipolar I disorder, most recent episode (or current) mixed, moderate F31.62 [facility] [id number] [place] [address] 59632- 2148 Aug, Chronic pain G89.29 [facility] [id number] [place] [address] 77088- 9019 Aug, Generalized edema R60.1 [facility] [id number] [place] [address] 31596- 1886 Aug, [facility] [id number] [place] [address] 40459- 4817 Aug, [facility] [address] [address]- 5707 14 Aug, 2017 Bipolar I disorder, most recent episode (or current) mixed, moderate F31.62 [facility] [id number] [place] [address] 16642- 6216 07 Aug, 2017 Bipolar I disorder, most recent episode (or current) mixed, moderate F31.62 [facility] [id number] [place] [address] 26056- 3745 Aug, Chronic pain G89.29 [facility] [id number] [place] [address] 81994- 8637 Jul, Bipolar I disorder, most recent episode (or current) mixed, moderate F31.62 [facility] [id number] [place] [address] 29063- 1073 Jul, Bipolar I disorder, most recent episode (or current) mixed, moderate F31.62 and BMI 60.0-69.9, adult Z68.44 [facility] [id number] [place] [address] 13676- 3482 Jul, Bipolar I disorder, most recent episode (or current) mixed, moderate F31.62 [facility] [id number] [place] [address] 66547- 9882 Jul, Chronic pain G89.29 [facility] [id number] [place] [address] 18172- 1298 Jul, Bipolar I disorder, most recent episode (or current) mixed, moderate F31.62 [facility] [address] [place] [address] 32200- 6392 Jun, Polyneuropathy associated with underlying disease G63 and Diabetes E11.9 [facility] [id number] [place] [address] 12662- 1194 Jun, Bipolar I disorder, most recent episode (or current) mixed, moderate F31.62 [facility] [id number] [place] [address] 40616- 6093 Jun, Chronic pain G89.29 [facility] [address] [place] [address] 55509- 1163 27 May, 2017 Bipolar I disorder, most recent episode (or current) mixed, moderate F31.62 [facility] [id number] [place] [address] 50929- 4284 21 May, 2017 Bipolar I disorder, most recent episode (or current) mixed, moderate F31.62 [facility] [id number] [place] [address] 79377- 2013 20 May, 2017 Diabetic polyneuropathy associated with type 2 diabetes mellitus E11.42 [facility] [id number] [place] [address] 50933- 2668 18 May, 2017 Bipolar I disorder, most recent episode (or current) mixed, moderate F31.62 [facility] [id number] [place] [address] 44092- 8973 13 May, 2017 Bipolar I disorder, most recent episode (or current) mixed, moderate F31.62 [facility] [id number] [place] [address] 37948- 2370 May, Chronic pain G89.29 [facility] [id number] [place] [address] 70596- 8384 Apr, Bipolar I disorder, most recent episode (or current) mixed, moderate F31.62 [facility] [id number] [place] [address] 75084- 6519 Apr, [facility] [id number] [place] [address] 56646- 7840 Apr, Chronic pain G89.29 and DM neuro manif type II E11.49 [facility] [id number] [place] [address] 83420- 0930 Apr, [facility] [id number] [place] [address] 08309- 1504 Apr, Bipolar I disorder, most recent episode (or current) mixed, moderate F31.62 [facility] [address] [address]- 0252 Apr, Chronic pain G89.29 [facility] [address] [place] [address] 51853- 3276 Apr, Iliotibial band syndrome, left M76.32 [facility] [id number] [place] [address] 66350- 6906 Apr, Bipolar I disorder, most recent episode (or current) mixed, moderate F31.62 [facility] [address] [place] [address] 13801- 5356 Mar, Bipolar I disorder, most recent episode (or current) mixed, moderate F31.62 [facility] [address] [place] [address] 15476- 2025 Mar, Bipolar I disorder, most recent episode (or current) mixed, moderate F31.62 [facility] [address] [address]- 7933 Mar, [facility] [id number] [place] [address] 16419- 9232 Mar, Bipolar I disorder, most recent episode (or current) mixed, moderate F31.62 [facility] [address] [place] [address]- 0850 Mar, Chronic pain G89.29 [facility] [address] [place] [address] 84068- 6811 Mar, Bipolar I disorder, most recent episode (or current) mixed, moderate F31.62 [facility] [address] [place] [address]- 0256 Mar, Bipolar I disorder, most recent episode (or current) mixed, moderate F31.62 [facility] [address] [place] [address]- 3636 Mar, Acute pain of left knee M25.562 ; Left hip pain M25.552 ; Generalized edema R60.1 and Tongue swelling R22.0 [facility] [id number] [place] [address] 23859- 7781 Mar, [facility] [id number] [place] [address] 87521- 9709 Feb, Chronic pain G89.29 [facility] [id number] [place] [address] 35285- 5862 Feb, Diabetes E11.9 [facility] [id number] [place] [address] 62348- 8545 January, Chronic pain G89.29 [facility] [id number] [place] [address] 91560- 5583 January, [facility] [id number] [place] [address] 60023- 1377 January, Bipolar I disorder, most recent episode (or current) mixed, moderate F31.62 [facility] [id number] [place] [address] 98723- 5812 Dec, Bipolar I disorder, most recent episode (or current) mixed, moderate F31.62 [facility] [address] [place] [address] 87372- 1956 Dec, Chronic pain G89.29 [facility] [id number] [place] [address] 41649- 0639 Dec, Bipolar I disorder, most recent episode (or current) mixed, moderate F31.62 [facility] [address] [place] [address] 92244- 3917 Dec, Diabetes E11.9 ; Essential hypertension I10 ; Chronic pain G89.29 and Morbid obesity E66.01 [facility] [id number] [place] [address] 94303- 0117 Dec, [facility] [id number] [place] [address] 02655- 9391 Dec, Bipolar I disorder, most recent episode (or current) mixed, moderate F31.62 [facility] [address] [place] [address] 67303- 0066 Dec, Bipolar I disorder, most recent episode (or current) mixed, moderate F31.62 [facility] [address] [address]- 0506 Nov, Chronic pain G89.29 [facility] [id number] [place] [address] 61304- 8263 Nov, Bipolar I disorder, most recent episode (or current) mixed, moderate F31.62 [facility] [id number] [place] [address] 10205- 7446 Nov, [facility] [id number] [place] [address] 87353- 0032 Nov, Bipolar I disorder, most recent episode (or current) mixed, moderate F31.62 [facility] [address] [place] [address] 43175- 9429 Nov, Bipolar I disorder, most recent episode (or current) mixed, moderate F31.62 [facility] [address] [place] [address] 63760- 4782 Nov, [facility] [address] [address]- 0899 Nov, [facility] [address] [place] [address]- 2427 Nov, [facility] [address] [place] [address]- 1473 Oct, Chronic pain G89.29 [facility] [address] [place] [address]- 1676 Oct, Bipolar I disorder, most recent episode (or current) mixed, moderate F31.62 [facility] [address] [place] [address] 06459- 0510 Oct, [facility] [address] [place] [address] 89521- 8696 Oct, Chronic pain G89.29 ; Diabetes E11.9 ; Anxiety F41.9 and 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 [facility] [address] [place] [address] 60969- 4226 Oct, [facility] [id number] [place] [address] 46351- 1836 Oct, Diabetes E11.9 [facility] [id number] [place] [address] 25802- 0470 Oct, Bipolar I disorder, most recent episode (or current) mixed, moderate F31.62 [facility] [id number] [place] [address] 94131- 7335 Sep, Chronic pain G89.29 [facility] [id number] [place] [address] 77630- 4615 Sep, Chronic pain G89.29 [facility] [id number] [place] [address] 36484- 4944 Aug, Chronic pain G89.29 [facility] [id number] [place] [address] 01679- 2063 Jul, [facility] [id number] [place] [address] 83424- 5838 Jul, Diabetes E11.9 [facility] [address] [place] [address]- 2890 Jul, Chronic pain G89.29 [facility] [id number] [place] [address] 31943- 9837 Jul, Bipolar I disorder, most recent episode (or current) mixed, moderate F31.62 [facility] [address] [place] [address] 36016- 0526 Jun, Bipolar I disorder, most recent episode (or current) mixed, moderate F31.62 [facility] [id number] [place] [address] 54977- 6715 Jun, [facility] [id number] [place] [address] 72439- 9392 Jun, Bipolar I disorder, most recent episode (or current) mixed, moderate F31.62 [facility] [id number] [place] [address] 13395- 1415 30 May, 2016 Insomnia, unspecified type G47.00 [facility] [id number] [place] [address] 77301- 8179 May, Bipolar I disorder, most recent episode (or current) mixed, moderate F31.62 [facility] [id number] [place] [address] 85928- 5402 14 May, 2016 [facility] [id number] [place] [address] 23117- 2718 May, Bipolar I disorder, most recent episode (or current) mixed, moderate F31.62 [facility] [id number] [place] [address] 92532- 3184 May, Diabetes E11.9 and Essential hypertension I10 [facility] [id number] [place] [address] 33046- 1173 Apr, Chronic pain G89.29 [facility] [id number] [place] [address] 65406- 0522 Apr, Bipolar I disorder, most recent episode (or current) mixed, moderate F31.62 [facility] [id number] [place] [address] 52628- 0748 Apr, [facility] [id number] [place] [address] 22114- 9835 Apr, [facility] [id number] [place] [address] 43320- 4359 Mar, Chronic pain G89.29 ; Headache, unspecified headache type R51 ; Neuropathy G62.9 ; Pain of right hip joint M25.551 and Essential hypertension I10 [facility] [id number] [place] [address] 27673- 5632 Mar, Chronic pain G89.29 [facility] [id number] [place] [address] 75861- 1391 Mar, Bipolar I disorder, most recent episode (or current) mixed, moderate F31.62 [facility] [id number] [place] [address] 77563- 1350 Feb, Bipolar I disorder, most recent episode (or current) mixed, moderate F31.62 and Insomnia, unspecified type G47.00 [facility] [id number] [place] [address] 32937- 1117 Feb, Chronic pain G89.29 [facility] [address] 13352- 8308 Feb, Bipolar I disorder, most recent episode (or current) mixed, moderate F31.62 [facility] [address] 45551- 1924 January, Bipolar I disorder, most recent episode (or current) mixed, moderate F31.62 [facility] [id number] [place] [address] 79142- 1293 January, Chronic pain G89.29 [facility] [id number] [place] [address] 03636- 4043 January, Chronic pain G89.29 and Essential hypertension I10 [facility] [id number] [place] [address] 21916- 2405 January, Bipolar I disorder, most recent episode (or current) mixed, moderate F31.62 [facility] [id number] [place] [address] [phone] [phone] Dec, [facility] [address] [place] [address] Dec, [facility] [id number] [place] [address] [id number]- [phone] Dec, [facility] [id number] [place] [address] [id number]- [phone] Dec, [facility] [id number] [place] [address] 27058- 5609 Nov, Reactive airway disease J45.909 [facility] [id number] [place] [address] 55431- 9833 Nov, [facility] [address] [phone] Nov, [facility] [id number] [place] [address] [id number]- 8658 Nov, [facility] [address] [address]- [address] Nov, [facility] [address] [id number] [place] [address] 05246- 1269 Nov, Onychomycosis B35.1 ; Hammertoe M20.40 ; [place] or callus L84 and DM neuro manif type II E11.49 [facility] [id number] [place] [address] 54271- 6072 Nov, Chronic pain G89.29 ; Leukocytosis D72.829 and Diabetes E11.9 [facility] [id number] [place] [address] 92113- 0924 Nov, [facility] [id number] [place] [address] 76939- 4323 Oct, Bronchitis J40 [facility] [id number] [place] [address] 44847- 8861 Oct, [facility] [id number] [place] [address] 30591- 7639 Oct, [facility] [id number] [place] [address] 19430- 5554 Oct, Mastoiditis, unspecified laterality H70.90 and Type 2 diabetes mellitus with complication E11.8 [facility] [id number] [place] [address] 60837- 1435 Sep, [facility] [id number] [place] [address] 95694- 6394 Sep, Dysuria R30.0 ; Cough R05 ; Benign prostatic hyperplasia with lower urinary tract symptoms, unspecified morphology N40.1 ; Hypokalemia E87.6 and Eustachian tube dysfunction, unspecified laterality H69.80 [facility] [id number] [place] [address] 84698- 8659 Sep, Moderate mixed bipolar I disorder F31.62 [facility] [id number] [place] [address] 19884- 8441 Sep, Hypokalemia E87.6 [facility] [id number] [place] [address] 44998- 8324 Sep, [facility] [id number] [place] [address] 42146- 2999 Sep, Upper respiratory tract infection, unspecified type J06.9 [facility] [id number] [place] [address] 32442- 3643 Aug, [facility] [id number] [place] [address] 66458- 9749 Aug, Dysuria R30.0 [facility] [id number] [place] [address] 34085- 3845 Aug, [facility] [id number] [place] [address] 71439- 4411 Jul, [facility] [id number] [place] [address] 44790- 7002 Jul, [facility] [id number] [address] 9810 Jul, [facility] [address] 3127 Jul, [facility] [address] 7222 Jun, [facility] [address] 2100 Jun, [facility] [address] [place] [address]- 1471 Jun, [facility] [id number] [place] [address] 950379- 0979 May, [facility] [address] [place] [address]- 0260 May, Bipolar I disorder, most recent episode (or current) mixed, moderate 296.62 [facility] [address] [place] [address]- 6458 May, [facility] [address] [place] [address]- 4530 May, Bipolar I disorder, most recent episode (or current) mixed, moderate 296.62 and Major depressive disorder, recurrent episode, severe, specified as with psychotic behavior 296.34 [facility] [address] [place] [address]- 4676 May, Bipolar I disorder, most recent episode (or current) mixed, moderate 296.62 [facility] [address], [place] [address]- 6942 May, [facility] [address] 1470 Apr, [facility] [address], [place] [address]- 6047 Apr, [facility] [address], [place] [address]- 3096 Apr, Unspecified disorder of kidney and ureter 593.9 and Diabetes mellitus type 2, uncontrolled 250.02 [facility] [id number] [place] [address] 76466- 6099 Apr, [facility] [id number] [place] [address] 01737- 1926 Apr, [facility] [id number] [place] [address] 62494- 0065 Apr, [facility] [id number] [place] [address] 49117- 0923 Apr, [facility] [id number] [place] [address] 66012- 2906 Apr, Diabetes mellitus type II, uncontrolled 250.02 [facility] [id number] [place] [address] 07929- 7441 Apr, [facility] [id number] [place] [address] 41221- 0297 Mar, [facility] [id number] [place] [address] 58477- 8608 Mar, [facility] [id number] [place] [address] 60809- 1823 Mar, [facility] [id number] [place] [address] 39967- 5657 Mar, Major depressive disorder, recurrent episode, severe, specified as with psychotic behavior 296.34 and Bipolar I disorder, most recent episode (or current) mixed, moderate 296.62 [facility] [id number] [place] [address] 17519- 6830 Mar, Diabetes 250.00 ; Anuria 788.5 ; Nausea and vomiting 787.01 and Diarrhea 787.91 [facility] [address], [place] [address]- 7578 Mar, Diabetes 250.00 [facility] [id number] [address]- 4266 Mar, [facility] [address], [place] [address]- 5053 Mar, Diabetes 250.00 [facility] [address], [place] [address]- 4311 Mar, [facility] [id number] [place] [address] 15288- 3336 Mar, [facility] [id number] [place] [address] 04068- 5174 Mar, [facility] [id number] [place] [address] 13616- 3204 Mar, [facility] [id number] [place] [address] 21483- 7141 Mar, Bipolar I disorder, most recent episode (or current) mixed, moderate 296.62 and Major depressive disorder, recurrent episode, severe, specified as with psychotic behavior 296.34 [facility] [address], [place] [address]- 8736 Mar, Magnesium deficiency 275.2 ; Hypokalemia 276.8 ; Nausea & vomiting 787.01 and Diabetes mellitus type 2, uncontrolled 250.02 [facility] [address], [place] [address]- 2960 Feb, [facility] [id number] [place] [address] 86393- 9030 Feb, Bipolar I disorder, most recent episode (or current) mixed, moderate 296.62 [facility] [address], [place] [address]- 4200 Feb, Nausea and vomiting 787.01 ; Left elbow pain 719.42 ; Anuria 788.5 and Diabetes 250.00 [facility] [address], [place] [address]- 5941 Feb, [facility] [id number] [place] [address] 33136- 2748 Feb, Hypopotassemia 276.8 and Hypokalemia 276.8 [facility] [address], [place] [address]- 9101 Feb, Hypopotassemia 276.8 and Hypokalemia 276.8 [facility] [address], [place] [address]- 7658 Feb, Seborrheic keratoses 702.19 [facility] [id number] [place] [address] 76315- 3673 Feb, Hypopotassemia 276.8 and Low magnesium levels 275.2 [facility] [id number] [place] [address] 62235- 5274 January, [facility] [id number] [place] [address] 26236- 9388 January, [facility] [id number] [place] [address] 09066- 3978 January, [facility] [id number] [place] [address] 48918- 7676 January, Scalp lesion 709.9 [facility] [id number] [place] [address] 98439- 3077 January, [facility] [id number] [place] [address] 31963- 5553 Dec, Tear of medial cartilage or meniscus of knee, current 836.0 and 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 [facility] [address], [place] [address]- 5055 Dec, [facility] [id number] [place] [address] 24174- 8996 Dec, [facility] [address], [place] [address]- 5481 Dec, Squamous cell carcinoma, 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 [facility] [id number] [address]- 9934 14 Dec, 2014 [facility] [address] [id number] [place] [address]- 5002 13 Dec, 2014 [facility] [place] [facility] [address] [id number] [place] [address]- 6484 Nov, [facility] [place] [facility] [address] [id number] [place] [address]- 9233 Nov, [facility] [place] [facility] [address] [id number] [place] [address]- 6770 Nov, [facility] [place] [facility] [address] [id number] [place] [address]- 2910 Nov, [facility] [place] [facility] [address] [id number] [place] [address]- 5095 Nov, [facility] [place] [facility] [address] [id number] [place] [address]- 0402 Nov, [facility] [place] [facility] [address] [id number] [place] [address]- 2726 Nov, [facility] [place] [facility] [address] [id number] [place] [address]- 1788 Nov, [facility] [place] [facility] [address] [facility] [id number] [place] [address]- 9904 Nov, [facility] [place] [facility] [address] [id number] [place] [address]- 1050 Nov, [facility] [place] [facility] [address] [id number] [place] [address]- 0688 Nov, [facility] [place] [facility] [address] [id number] [place] [address]- 9765 Nov, [facility] [place] [facility] [address] [id number] [place] [address]- 3891 Oct, [facility] [place] [facility] [address] [id number] [place] 2646 Oct, [facility] [place] [facility] [address] [id number] [place] [address]- 0720 Oct, 2014 [facility] [place] [facility] [address] [id number] [place] [address]- 5937 Oct, [facility] [place] [facility] [address] [id number] [place] [address]- 3928 Oct, 2014 [facility] [place] [facility] [address] [id number] [place] [address]- 9466 Oct, 2014 [facility] [place] [facility] [address] [id number] [place] [address]- 4806 Oct, [facility] [place] [facility] [address] [id number] [place] [address]- 9074 Oct, [facility] [place] [facility] [address] [id number] [place] [address]- 1756 Oct, [facility] [place] [facility] [address] [id number] [place] [address]- 0989 Sep, [facility] [place] [facility] [address] [id number] [place] [address]- 5528 Sep, [facility] [place] [facility] [address] [id number] [place] [address]- 3721 Sep, [facility] [place] [facility] [address] [id number], [place] [address]- 7846 Sep, [facility] [place] [facility] [address] [id number], [place] [address]- 3264 Sep, [facility] [place] [facility] [address] [id number] [place] [address]- 5387 Sep, [facility] [place] [facility] [address] [id number] [place] [address]- 1379 Sep, [facility] [place] [facility] [address] [id number] [place] [address]- 8199 Sep, [facility] [place] [facility] [address] [id number] [place] [address]- 1741 14 Sep, 2014 [facility] [address] [id number] [place] [address]- 8389 Sep, [facility] [place] [facility] [address] [id number] [place] [address]- 2311 08 Sep, 2014 [facility] [address] [id number] [place] [address]- 7079 Sep, [facility] [address] [id number] [place] [address]- 0708 Sep, [facility] [address] [id number] [place] [address]- 8465 Sep, [facility] [address] [id number] [place] [address]- 4692 Sep, [facility] [address] [id number] [place] [address]- 2735 Sep, [facility] [address] [id number] [place] [address]- 4367 Aug, [facility] [address] [id number] [place] [address]- 7251 Aug, [facility] [address] [id number] [place] [address]- 5867 Aug, [facility] [place] [facility] [address] [id number] [place] [address]- 2118 [address], [address] [facility] [place] [facility] [address] [id number] [place] [address]- 4837 31 Aug, 2014 [facility] [place] [facility] [address] [id number] [place] [address]- 6887 31 Aug, 2014 [facility] [place] [facility] [address] [id number] [place] [address]- 0336 17 Aug, 2014 [facility] [place] [facility] [address] [id number] [place] 0163 Aug, [facility] [address] [id number] [place] [address]- 5899 Aug, [facility] [address] [id number] [place] [address]- 2307 Aug, [facility] [address] [id number] [place] [address]- 9538 Aug, [facility] [address] [place] [id number] Aug, [facility] [address] [id number] [place] [address]- 3502 Aug, [facility] [address] [id number] [place] [address]- 5981 Aug, [facility] [address] [id number] [place] [address]- 5557 Aug, [facility] [address] [id number] [place] [address]- 8117 Aug, [facility] [address] [id number] [place] [address]- 5660 Aug, [facility] [address] [id number] [place] [address]- 5306 Aug, [facility] [address] [id number] [place] [address]- 1340 Aug, [facility] [address] [id number] [place] [address]- 3691 Aug, [facility] [address] [id number] [place] [address]- 8262 Aug, [facility] [place] [facility] [address] [id number] [place] [address]- 6216 Aug, [facility] [address] [id number] [place] 5302 03 Aug, 2014 [facility] [address] [id number] [place] [address]- 4170 Aug, [facility] [place] [facility] [address] [id number] [place] [address]- 8205 Aug, [facility] [place] [facility] [address] [id number] [place] 1471 Aug, [facility] [place] [facility] [address] [facility] [id number] [place] 9878 Aug, [facility] [place] [facility] [address] [id number] [place] 6074 Aug, [facility] [place] [facility] [address] [id number] [place] [address]- 2437 Aug, [facility] [place] [facility] [address] [id number] [place] [address]- 7094 Aug, [facility] [place] [facility] [address] [id number] [place] [address]- 3596 Jul, [facility] [place] [facility] [address] [id number] [place] [address]- 5217 Jul, [facility] [place] [facility] [address] [id number] [place] [address]- 5629 Jul, [facility] [place] [facility] [address] [id number] [place] [address]- 9390 Jul, [facility] [place] [facility] [address] [id number], [place] [address]- 6460 Jul, [facility] [place] [facility] [address] [id number], [place] [address]- 9251 Jul, [facility] [place] [facility] [address] [id number], [place] [address]- 1225 Jul, [facility] [place] [facility] [address] [id number], [place] [address]- 4528 Jul, [facility] [place] [facility] [address] [facility] [id number], [place] [address]- 0842 Jul, [facility] [place] [facility] [address] [id number] [place] [address]- 3567 Jul, [facility] [place] [facility] [address] [id number] [place] [address]- 2887 Jun, [facility] [place] [facility] [address] [id number] [place] [address]- 9652 Jun, [facility] [place] [facility] [address] [id number] [place] [address]- 1185 Jun, [facility] [place] [facility] [address] [id number] [place] [address]- 8215 Jun, [facility] [place] [facility] [address] [id number] [place] [address]- 6894 Jun, [facility] [place] [facility] [address] [id number] [place] [address]- 7852 Jun, [facility] [place] [facility] [address] [id number] [place] [address]- 0087 Jun, [facility] [place] [facility] [address] [id number] [place] [address]- 0342 Jun, [facility] [place] [facility] [address] [id number] [place] [address]- 5419 Jun, [facility] [place] [facility] [address] [id number] [place] [address]- 2466 Jun, [facility] [place] [facility] [address] [id number] [place] [address]- 0310 29 May, 2013 [facility] [place] [facility] [address] [id number] [place] [address]- 7199 29 Sep, 2013 [facility] [place] [facility] [address] [id number] [place] [address]- 5353 26 Sep, 2013 [facility] [place] [facility] [address] [id number] [place] [address]- 6526 26 May, 2013 [facility] [place] [facility] [address] [id number] [place] [address]- 6904 17 May, 2013 [facility] [place] [facility] [address] [id number] [place] [address]- 3845 17 May, 2013 [facility] [place] [facility] [address] [id number] [place] [address]- 0779 15 May, 2013 [facility] [place] [facility] [address] [id number] [place] [address]- 6529 15 May, 2013 [facility] [place] [facility] [address] [id number] [place] [address] 254 15 May, 2013 [facility] [place] [facility] [address] [id number] [place] [address]- 3872 15 May, 2013 [facility] [place] [facility] [address] [id number] [place] [address]- 5722 10 May, 2013 [facility] [place] [facility] [address] [id number] [place] [address]- 6249 10 May, 2013 [facility] [place] [facility] [address] [id number] [place] [address]- 7022 09 May, 2013 [facility] [place] [facility] [address] [id number] [place] [address]- 0580 09 May, 2013 [facility] [place] [facility] [address] [id number] [place] [address]- 0095 04 May, 2013 [facility] [place] [facility] [address] [id number] [place] [address]- 7591 May, 2013 [facility] [place] [facility] [address] [id number] [place] [address]- 2791 Apr, [facility] [place] [facility] [address] [id number] [place] [address]- 7411 Apr, [facility] [place] [facility] [address] [id number] [place] [address]- 0226 Apr, [facility] [place] [facility] [address] [id number] [place] [address]- 4288 Apr, [facility] [place] [facility] [address] [id number] [place] [address]- 3840 Apr, [facility] [place] [facility] [address] [id number] [place] [address]- 2161 Apr, [facility] [place] [facility] [address] [id number] [place] [address]- 5441 Apr, [facility] [place] [facility] [address] [id number] [place] [address]- 7331 Apr, [facility] [place] [facility] [address] [id number] [place] [address]- 2781 Apr, [facility] [place] [facility] [address] [id number] [place] [address]- 6176 Apr, [facility] [place] [facility] [address] [id number] [place] [address]- 5450 Apr, [facility] [place] [facility] [address] [id number] [place] [address]- 1389 Apr, [facility] [place] [facility] [address] [id number] [place] [address]- 2378 Apr, [facility] [place] [facility] [address] [id number] [place] [address] Apr, [facility] [place] [facility] [address] [id number] [place] [address] Apr, [facility] [place] [facility] [address] [id number] [place] [address] Mar, [facility] [place] [facility] [address] [id number] [place] [address] Mar, [facility] [place] [facility] [address] [id number] [place] [address] 1880 Mar, [facility] [place] [facility] [address] [id number] [place] [address] Mar, [facility] [place] [facility] [address] [id number] [place] [address] Mar, [facility] [place] [facility] [address] [id number] [place] [address] Mar, 2013 [facility] [place] [facility] [address] [id number] [place] [address]- [address] Mar, 2013 [facility] [place] [facility] [address] [id number] [place] [address]- [address] Mar, 2013 [facility] [place] [facility] [address] [id number] [place] [address] Mar, 2013 [facility] [place] [facility] [address] [id number] [place] [address] Mar, 2013 [facility] [place] [facility] [address] [id number] [place] [address]- 7733 Mar, 2013 [facility] [place] [facility] [address] [id number] [place] [address]- [address] Mar, 2013 [facility] [place] [facility] [address] [id number] [place] [address]- [address] Mar, 2013 [facility] [place] [facility] [address] [id number] [place] [address]- 66[address] Mar, 2013 [facility] [place] [facility] [address] [id number] [place] [address]- [address] Mar, 2013 [facility] [place] [facility] [address] [id number] [place] [address]- 8728 Mar, 2013 [facility] [place] [facility] [address] [id number] [place] [address]- [address] Mar, 2013 [facility] [place] [facility] [address] [id number] [place] [address]- [address] Mar, [facility] [place] [facility] [address] [id number] [place] [address] Feb, [facility] [place] [facility] [address] [id number] [place] [address]- [address] Feb, [facility] [place] [facility] [address] [id number] [place] [id number] [address] Feb, [facility] [place] [facility] [address] [id number] [place] [address] 39[address] Feb, [facility] [place] [facility] [address] [id number] [place] [address] Feb, [facility] [place] [facility] [address] [id number] [place] [address]- 75[address] Feb, [facility] [place] [facility] [address] [id number] [place] [address]- [address] Feb, [facility] [place] [facility] [address] [id number] [place] [address]- 8549 Feb, [facility] [place] [facility] [address] [id number] [place] [address]- 6461 Feb, [facility] [place] [facility] [address] [id number] [place] [address]- 2080 Feb, [facility] [place] [facility] [address] [id number] [place] [address]- [address] Feb, [facility] [place] [facility] [address] [id number] [place] [address]- [address]381 Feb, [facility] [place] [facility] [address] [id number] [place] [address]- [address]897 Feb, [facility] [place] [facility] [address] [id number] [place] [address]- [address] Feb, [facility] [place] [facility] [address] [id number] [place] [address] January, [facility] [place] [facility] [address] [id number] [place] [address] 20[address] January, [facility] [place] [facility] [address] [id number] [place] [address] 13[address] January, [facility] [place] [facility] [address] [id number] [place] [address]- [address] January, [facility] [place] [facility] [address] [id number] [place] [address]- [address] January, [facility] [address] [id number] [place] [address]- [address] January, [facility] [place] [facility] [address] [id number] [place] [address] 5682 January, [facility] [place] [facility] [address] [id number] [place] [address]- 234[address] January, [facility] [place] [facility] [address] [id number] [place] [address] 8[address] January, [facility] [place] [facility] [address] [id number] [place] [address] 4[address] January, [facility] [place] [facility] [address] [id number] [place] [address] January, [facility] [address] [id number] [place] [address]- 75[address] January, [facility] [place] [facility] [address] [id number] [place] [address] January, [facility] [place] [facility] [address] [id number] [place] [address] January, [facility] [place] [facility] [address] [id number] [place] [address]- 69[address] Dec, [facility] [place] [facility] [address] [id number] [place] [address] Dec, [facility] [place] [facility] [address] [id number] [place] [address] 4806 Dec, [facility] [place] [facility] [address] [id number] [place] [address] 6134 Dec, [facility] [place] [facility] [address] [id number] [place] [address] 3759 Dec, [facility] [place] [facility] [address] [id number] [place] [address] 4888 Dec, [facility] [place] [facility] [address] [id number] [place] [address] 8724 Dec, [facility] [place] [facility] [address] [id number] [place] [address]- 9738 Dec, [facility] [place] [facility] [address] [id number] [place] [address] 4196 Dec, [facility] [place] [facility] [address] [id number] [place] [address]- 2874 Dec, [facility] [place] [facility] [address] [id number] [place] [address] 5013 Nov, [facility] [place] [facility] [address] [id number] [place] [address]- 1037 Nov, [facility] [place] [facility] [address] [id number] [place] [address]- 6453 Nov, [facility] [place] [facility] [address] [id number] [place] [address]- 5868 Nov, [facility] [place] [facility] [address] [id number] [place] [address]- 4670 Nov, [facility] [place] [facility] [address] [id number] [place] [address]- 7050 Nov, [facility] [place] [facility] [address] [id number] [place] [address]- 6951 Nov, [facility] [place] [facility] [address] [id number] [place] [address]- 1207 Nov, [facility] [place] [facility] [address] [id number] [place] [address]- 4936 Nov, [facility] [place] [facility] [address] [id number] [place] [address] Nov, [facility] [place] [facility] [address] [id number] [place] [address]- 8740 Oct, [facility] [place] [facility] [address] [id number] [place] [address]- 0533 Oct, [facility] [place] [facility] [address] [id number] [place] [address]- 8246 Oct, [facility] [place] [facility] [address] [id number] [place] [address]- 3926 Oct, [facility] [place] [facility] [address] [facility] [id number] [place] [address]- 6206 Oct, [facility] [place] [facility] [address] [id number] [place] [address]- 7160 Oct, [facility] [place] [facility] [address] [id number] [place] [address]- 6516 Oct, [facility] [place] [facility] [address] [id number] [place] [address]- 5416 Oct, [facility] [place] [facility] [address] [facility] [id number] [place] [address]- 8256 Oct, [facility] [place] [facility] [address] [facility] [id number] [place] [address]- 6291 Oct, [facility] [place] [facility] [address] [facility] [id number] [place] [address]- 4838 Oct, [facility] [place] [facility] [address] [facility] [id number] [place] [address]- 8946 Oct, [facility] [place] [facility] [address] [facility] [id number] [place] [address]- 6646 Oct, [facility] [place] [facility] [address] [facility] [id number] [place] [address]- 0958 Oct, [facility] [place] [facility] [address] [id number] [place] [address]- 7192 Sep, [facility] [place] [facility] [address] [facility] [id number] [place] [address]- 8474 Sep, [facility] [place] [facility] [address] [facility] [id number] [place] [address]- 7802 Sep, [facility] [address] [id number] [place] [address]- 5593 15 Sep, 2013 [facility] [place] [facility] [address] [id number] [place] [address]- 3225 14 Sep, 2013 [facility] [place] [facility] [address] [id number] [place] [address]- 9308 14 Sep, 2013 [facility] [place] [facility] [address] [id number] [place] [address]- 8272 14 Sep, 2013 [facility] [place] [facility] [address] [id number] [place] [address]- 1911 Sep, [facility] [place] [facility] [address] [id number] [place] [address]- 4892 Sep, [facility] [place] [facility] [address] [id number] [place] [address]- 5363 Sep, [facility] [place] [facility] [address] [id number] [place] [address]- 6587 10 Aug, 2013 [facility] [place] [facility] [address] [id number] [place] [address]- 2384 Aug, [facility] [place] [facility] [address] [id number], [place] [address]- 1432 Jul, [facility] [place] [facility] [address] [id number] [place] [address]- 2281 Jul, [facility] [place] [facility] [address] [id number], [place] [address]- 5246 Jul, [facility] [place] [facility] [address] [id number] [place] [address]- 2151 Jul, [facility] [place] [facility] [address] [id number] [place] [address]- 0417 Jul, [facility] [place] [facility] [address] [id number], [place] [address]- 8497 13 Jul, 2013 [facility] [place] [facility] [address] [id number], [place] [address]- 2932 Jul, [facility] [place] [facility] [address] [id number] [place] [address]- 6857 Jul, [facility] [place] [facility] [address] [id number], [place] [address] Jul, [facility] [place] [facility] [address] [facility] [id number] [place] [address]- 6357 Jul, [facility] [place] [facility] [address] [id number] [place] [address]- 8942 Jul, [facility] [place] [facility] [address] [id number] [place] [address]- 7487 Jul, [facility] [place] [facility] [address] [id number] [place] [address]- 6642 Jul, [facility] [place] [facility] [address] [facility] [id number], [place] [address]- 1038 Jul, [facility] [place] [facility] [address] [facility] [id number] [place] [address]- 8432 Jul, [facility] [place] [facility] [address] [facility] [id number], [place] [address]- 2982 Jul, [facility] [place] [facility] [address] [facility] [id number], [place] [address]- 6195 Jul, [facility] [place] [facility] [address] [facility] [id number], [place] [address]- 5208 Jul, [facility] [place] [facility] [address] [facility] [id number], [place] [address]- 3420 Jul, [facility] [place] [facility] [address] [id number], [place] [address]- 6185 Jun, [facility] [place] [facility] [address] [facility] [id number], [place] [address]- 5282 Jun, [facility] [place] [facility] [address] [facility] [id number], [place] [address]- 6658 Jun, [facility] [place] [facility] [address] [id number] [place] [address]- 0996 16 Jun, 2012 [facility] [place] [facility] [address] [id number] [place] [address]- 6289 16 Jun, 2012 [facility] [place] [facility] [address] [id number] [place] 16 Jun, 2012 [facility] [place] [facility] [address] [id number] [place] [address]- 0980 10 Jun, 2012 [facility] [place] [facility] [address] [id number] [place] [address]- 2142 10 Jun, 2012 [facility] [place] [facility] [address] [id number] [place] [address]- 3812 Jun, 2012 [facility] [place] [facility] [address] [id number] [place] [address]- 1381 09 Jun, 2012 [facility] [place] [facility] [address] [id number] [place] [address]- 9391 Jun, 2012 [facility] [place] [facility] [address] [id number] [place] [address]- 0637 26 Sep, 2012 [facility] [place] [facility] [address] [id number] [place] [address]- 6348 25 Sep, 2012 [facility] [place] [facility] [address] [id number] [place] [address]- 6017 19 Sep, 2012 [facility] [place] [facility] [address] [id number] [place] [address]- 2542 17 Sep, 2012 [facility] [place] [facility] [address] [id number] [place] [address]- 2542 11 Sep, 2012 [facility] [place] [facility] [address] [id number] [place] [address]- 2546 10 Sep, 2012 [facility] [place] [facility] [address] [id number] [place] [address]- 2546 09 Sep, 2012 [facility] [place] [facility] [address] [id number] [place] [address]- 1474 May, [facility] [place] [facility] [address] [id number] [place] [address]- 2307 Apr, [facility] [place] [facility] [address] [id number] [place] [address]- 2076 Apr, [facility] [place] [facility] [address] [id number] [place] [address]- 2590 Apr, [facility] [place] [facility] [address] [id number] [place] [address]- 9517 Apr, [facility] [place] [facility] [address] [id number] [place] [address]- 2404 Apr, [facility] [place] [facility] [address] [id number] [place] [address]- 1930 Mar, [facility] [place] [facility] [address] [id number] [place] [address]- 0968 Mar, [facility] [place] [facility] [address] [id number] [place] [address]- 3950 Mar, [facility] [place] [facility] [address] [id number] [place] [address]- 5208 Mar, [facility] [place] [facility] [address] [id number] [place] [address]- 3589 Mar, [facility] [place] [facility] [address] [id number] [place] [address]- 3541 Mar, [facility] [place] [facility] [address] [id number] [place] [address]- 6795 Mar, [facility] [place] [facility] [address] [id number] [place] [address]- 7988 Mar, [facility] [place] [facility] [address] [id number] [place] [address]- 9819 Feb, [facility] [place] [facility] [address] [id number] [place] [address]- 2434 Feb, [facility] [place] [facility] [address] [id number] [place] [address]- 5103 January, [facility] [address] [id number] [place] [address]- 7967 January, [facility] [address] [id number] [place] [address]- 7932 Dec, [facility] [address] [id number] [place] [address]- 3825 Dec, [facility] [place] [facility] [address] [id number] [place] [address]- 2925 Nov, [facility] [address] [id number] [place] [address]- 0737 Nov, [facility] [address] [id number] [place] [address]- 9347 Nov, [facility] [address] [id number] [place] [address]- 0765 Nov, [facility] [address] [id number] [place] [address]- 4731 Oct, [facility] [address] [id number] [place] [address]- 9201 Oct, [facility] [address] [facility] [id number] [place] [address]- 6369 Oct, [facility] [place] [facility] [address] [id number] [place] [address] 2546 26 Oct, 2012 [facility] [address] [id number] [place] [address] 2548 16 Oct, 2012 [facility] [place] [facility] [address] [id number] [place] [address]- 5511 14 Oct, 2012 [facility] [place] [facility] [address] [facility] [id number] [place] [address] 2546 08 Oct, 2012 [facility] [place] [facility] [address] [facility] [id number] [place] [address] 2540 07 Oct, 2012 [facility] [address] [id number] [place] [address]- 4709 Oct, [facility] [address] [id number] [place] [address]- 7041 Sep, [facility] [address] [id number] [place] [address]- 1035 Sep, [facility] [address] [id number] [place] [address]- 2529 Sep, [facility] [address] [id number] [place] [address]- 7420 Sep, [facility] [address] [id number] [place] [address]- 1206 Sep, [facility] [address] [id number] [place] [address]- 7321 Sep, [facility] [address] [id number] [place] [address]- 1783 Sep, [facility] [address] [id number] [place] [address]- 5087 Sep, [facility] [address] [id number] [place] [address]- 6391 Aug, [facility] [address] [id number] [place] [address]- 7227 Aug, [facility] [place] [facility] [address] [id number] [place] [address]- 0312 Aug, [facility] [place] [facility] [address] [id number] [place] [address]- 8100 Aug, [facility] [place] [facility] [address] [id number] [place] [address]- 9965 Aug, [facility] [place] [facility] [address] [id number] [place] [address]- 9092 Aug, [facility] [place] [facility] [address] [id number] [place] [address]- 6271 Aug, [facility] [place] [facility] [address] [id number] [place] [address]- 3206 Aug, [facility] [place] [facility] [address] [id number] [place] [address]- 3172 Jul, [facility] [place] [facility] [address] [id number] [place] [address]- 0764 Jul, [facility] [place] [facility] [address] [id number] [place] [address]- 6845 Jul, [facility] [place] [facility] [id number] [place] [address], [place] [address]- 8876 Jul, [facility] [place] [facility] [address] [id number] [place] [address]- 6678 Jul, [facility] [place] [facility] [address] [facility] [id number] [place] [address]- 3262 Jul, [facility] [place] [facility] [address] [id number] [place] [address]- 3190 Jun, [facility] [place] [facility] [address] [id number] [place] [address]- 4154 Jun, [facility] [place] [facility] [address] [facility] [id number] [place] [address]- 5003 Jun, [facility] [place] [facility] [address] [facility] [id number] [place] [address]- 8197 Jun, [facility] [place] [facility] [address] [facility] [id number], [place] [address]- 2281 Jun, [facility] [place] [facility] [address] [id number] [place] [address]- 5570 Jun, [facility] [place] [facility] [address] [facility] [id number] [place] [address]- 9677 Jun, [facility] [place] [facility] [address] [id number], [place] [address]- 2260 Jun, [facility] [place] [facility] [address] [id number] [place] [address]- 5861 Jun, [facility] [place] [facility] [address] [id number] [place] [address]- 2535 May, [facility] [place] [facility] [address] [id number] [place] [address]- 3955 24 May, 2012 [facility] [place] [facility] [address] [id number] [place] [address]- 5025 May, [facility] [place] [facility] [address] [id number] [place] [address]- 5213 Apr, [facility] [place] [facility] [address] [id number] [place] [address]- 8094 Apr, [facility] [place] [facility] [address] [id number] [place] [address]- 3269 Apr, [facility] [place] [facility] [address] [id number] [place] [address]- 0641 Apr, [facility] [place] [facility] [address] [id number] [place] [address]- 1737 Apr, [facility] [place] [facility] [address] [id number] [place] [address]- 6360 Apr, [facility] [place] [facility] [address] [id number] [place] [address]- 1525 Mar, [facility] [place] [facility] [address] [id number] [place] [address]- 8668 Mar, [facility] [place] [facility] [address] [id number] [place] [address]- 2211 Mar, [facility] [place] [facility] [address] [id number] [place] [address]- 0835 Mar, [facility] [place] [facility] [address] [id number] [place] [address]- 0609 Feb, [facility] [place] [facility] [address] [id number] [place] [address]- 3962 Feb, [facility] [place] [facility] [address] [id number] [place] [address]- 6871 Feb, [facility] [place] [facility] [address] [id number] [place] [address]- 4626 Feb, [facility] [place] [facility] [address] [id number] [place] [address]- 8709 Feb, [facility] [place] [facility] [address] [id number] [place] [address]- 4392 January, [facility] [place] [facility] [address] [id number] [place] [address]- 3360 January, [facility] [place] [facility] [address] [id number] [place] [address]- 1503 January, [facility] [place] [facility] [address] [id number] [place] [address]- 6039 January, [facility] [place] [facility] [address] [id number] [place] [address]- 9710 January, [facility] [place] [facility] [address] [id number] [place] [address]- 7424 January, [facility] [place] [facility] [address] [id number] [place] [address]- 9465 Dec, [facility] [place] [facility] [address] [id number] [place] [address]- 6550 Dec, [facility] [place] [facility] [address] [id number] [place] [address]- 6632 Dec, [facility] [place] [facility] [address] [id number] [place] 4983 Dec, [facility] [place] [facility] [address] [id number] [place] [address]- 5553 Dec, [facility] [place] [facility] [address] [id number] [place] [address]- 6233 Nov, [facility] [place] [facility] [address] [id number] [place] [address]- 5296 14 Nov, 2011 [facility] [place] [facility] [address] [id number] [place] [address]- 1227 12 Nov, 2011 [facility] [place] [facility] [address] [id number] [place] [address]- 5366 07 Nov, 2011 [facility] [place] [facility] [address] [id number] [place] [address]- 8176 29 Oct, 2011 [facility] [place] [facility] [address] [id number] [place] [address]- 3095 28 Oct, 2011 [facility] [place] [facility] [address] [id number] [place] [address]- 2824 24 Oct, 2011 [facility] [place] [facility] [address] [id number] [place] [address]- 2194 13 Oct, 2011 [facility] [place] [facility] [address] [id number] [place] [address]- 8794 08 Oct, 2011 [facility] [place] [facility] [address] [id number] [place] [address]- 1529 Sep, [facility] [place] [facility] [address] [id number] [place] [address]- 7200 Sep, [facility] [place] [facility] [address] [id number] [place] [address]- 2477 Sep, [facility] [place] [facility] [address] [id number] [place] [address]- 1369 Sep, [facility] [place] [facility] [address] [id number] [place] [address]- 4626 Sep, [facility] [place] [facility] [address] [id number] [place] [address]- 6461 Sep, [facility] [place] [facility] [address] [id number] [place] [address]- 3806 Aug, [facility] [place] [facility] [address] [id number] [place] [address]- 1386 Aug, [facility] [place] [facility] [address] [id number] [place] [address]- 6338 Aug, [facility] [place] [facility] [address] [id number] [place] [address]- 0965 Jul, [facility] [place] [facility] [address] [id number] [place] [address]- 5174 Jul, [facility] [place] [facility] [address] [id number] [place] [address]- 9520 Jul, [facility] [place] [facility] [address] [id number] [place] [address]- 4145 Jul, [facility] [place] [facility] [address] [id number] [place] [address]- 7726 Jun, [facility] [place] [facility] [address] [id number] [place] [address] Jun, [facility] [place] [facility] [address] [id number], [place] [address] Jun, [facility] [place] [facility] [address] [id number] [place] [address] Jun, [facility] [place] [facility] [address] [id number] [place] [address] Jun, [facility] [place] [facility] [address] [id number], [place] [address] Jun, [facility] [place] [facility] [address] [id number], [place] [address] Mar, [facility] [place] [facility] [address] [id number] [place] [address] Dec, [facility] [place] [facility] [address] [id number], [place] [address] Dec, [facility] [place] [facility] [address] [id number] [place] [address] Nov, [facility] [place] [facility] [address] [id number] [place] [address] 16 Nov, 2010 [facility] [address] [id number] [place] [address] 10 Sep, 2010 [facility] [address] [id number] [place] [address]46 31 Aug, 2010 [facility] [address] [id number] [place] [address]46 29 Aug, 2010 [facility] [address] [id number] [place] [address] 2546 29 Aug, 2010 [facility] [address] [id number] [place] [address] 29 Aug, 2010 [facility] [address] [id number] [place] [address] 2546 27 Aug, 2010 [facility] [address] [id number] [place] [address] 1446 14 Aug, 2010 [facility] [address] [id number] [place] [address] 2549 08 Aug, 2010 [facility] [address] [id number] [place] [address] 2546 08 Aug, 2010 [facility] [address] [facility] [id number] [place] [address] 2545 07 Aug, 2010 [facility] [address] [id number] [place] [address] 2546 06 Aug, 2010 [facility] [address] [id number] [place] [address] 2546 06 Aug, 2010 [facility] [place] [facility] [address] [id number] [place] [address] 2546 Aug, [facility] [place] [facility] [address] [id number] [place] [address] 2546 30 Jul, 2010 [facility] [address] [id number] [place] [address] 2541 Jul, [facility] [place] [facility] [address] [id number] [place] [address] 30 Jul, 2010 [facility] [place] [facility] [address] [id number] [place] [address] Jul, [facility] [place] [facility] [address] [id number] [place] [address] Jul, [facility] [place] [facility] [address] [id number] [place] [address] 15[address] Jul, [facility] [place] [facility] [address] [id number] [place] [address] 24 Jun, 2010 [facility] [place] [facility] [address] [id number] [place] [address] 17[address] Jun, [facility] [place] [facility] [address] [id number] [place] [address] 3[address] Jun, [facility] [place] [facility] [address] [id number] [place] [address] 4831 Jun, [facility] [place] [facility] [address] [id number] [place] [address] Apr, [facility] [place] [facility] [address] [id number] [place] [address] Mar, [facility] [place] [facility] [address] [id number] [place] [address] Feb, [facility] [place] [facility] [address] [id number], [place] [address] January, [facility] [place] [facility] [address] [id number] [place] [address] 15 Dec, 2009 [facility] [place] [facility] [address] [id number] [place] [address] Nov, [facility] [place] [facility] [address] [id number] [place] [address] Aug, [facility] [place] [facility] [address] [id number], [place] [address] Aug, [facility] [address] [facility] [id number], [place] [address] Aug, [facility] [address] [facility] [id number], [place] [address] Jul, [facility] [address] [facility] [id number], [place] [address] Jul, [facility] [address] [facility] [id number], [place] [address] Jul, [facility] [address] [facility] [id number], [place] [address] Jun, [facility] [address] [facility] [id number][place] [address] Jun, [facility] [address] [facility] [id number], [place] [address] Jun, [facility] [address] [facility] [id number], [place] [address] Jun, [facility] [address] [facility] [id number], [place] [address] Jun, [facility] [address] [facility] [id number], [place] [address]71 Jun, [facility] [address] [facility] [id number], [place] [address] Apr, [facility] [address] [facility] [id number], [place] [address] Apr, [facility] [address] [facility] [id number], [place] [address] Feb, [facility] [address] [facility] [id number][place] January, [facility] [address] [facility] [id number][place] [address] Dec, IMMUNIZATIONS No Known Immunizations SOCIAL HISTORY Never Assessed REASON FOR VISIT f/u, Depression. PLAN OF CARE Activity Details Follow Up Next available Reason:depression VITAL SIGNS MEDICATIONS Unknown Medications RESULTS No Results PROCEDURES Procedure Date Ordered Result Body Site [facility] VISIT MENTAL HEALTH ESTAB PT January 15, 2018 Psychotherapy, patient &/family, 45 minutes, established patient January 15, 2018 INSTRUCTIONS MEDICATIONS ADMINISTERED No Known Medications [...] 2009 Surgical History colonoscopy 2009 ([facility]), 2013 ([facility]) Surgical History heart cath: CAD w/ PTCA [...] History inability to urinate 09/16/15 Hospitalization History [facility] inpatient [facility] Hospitalization History hyperkalemia 10/2017 Hospitalization History fluid in lung
--- OUTSIDE RECORDS SUMMARY | 2018-08-08 14:22 | XMS REPORT ---
Author Author ROSELINE LUIS Organization [facility] Address [address] [place] [address] Care Team Providers Care Superintendent Mechanical Name Role Phone ROSELINE LUIS Unavailable PROBLEMS Type Condition ICD9-CM Code MDY53-AT Code Onset Dates Condition Status SNOMED Code Problem Chronic lymphocytic leukemia C91.10 Active 59987307 Problem Lymphocytosis D72.820 Active 21668435 Problem Eye exam abnormal R93.8 Active 718151599 Problem Eustachian tube dysfunction, unspecified laterality H69.80 Active 96218373 Problem Essential hypertension I10 Active 87399244 Problem Dysuria R30.0 Active 63017557 Problem Diabetic polyneuropathy associated with type 2 diabetes mellitus E11.42 Active 65845985 Problem Cough R05 Active 78846954 Problem Polyneuropathy associated with underlying disease G63 Active 977826449 Problem Retinal edema H35.81 Active 9137267 Problem Bilateral primary osteoarthritis of knee M17.0 Active 396656264 Problem Primary osteoarthritis of right knee M17.11 Active 728416315735307 Problem Pure hypercholesterolemia E78.00 Active 673791798 Problem DM neuro manif type II E11.49 Active 29195228 Problem Benign prostatic hyperplasia with lower urinary tract symptoms, unspecified morphology N40.1 Active 522999600 Problem Hypokalemia E87.6 Active 32147921 Problem 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 Active 268699657 Problem Anemia of chronic illness D63.8 Active 314517524 Problem Bipolar disorder, in partial remission, most recent episode depressed F31.75 Active 26469961 Problem Falling R29.6 Active 574473223 Problem Leukocytosis D72.829 Active 658815397 Problem Reactive airway disease J45.909 Active 695333300384 Problem Diabetes E11.9 Active 95340450 Problem Chronic pain G89.29 Active 86982137 Problem Anxiety F41.9 Active 48104389 Problem Morbid obesity E66.01 Active 138422599 Problem Bipolar I disorder, most recent episode (or current) mixed, moderate F31.62 Active 63136045 Problem Insomnia, unspecified type G47.00 Active 820947443 ALLERGIES No Information ENCOUNTERS Encounter Location Date Diagnosis [facility] [id number] [place] [address] 62528- 8080 Jun, [place] [address] 58943- 5964 Apr, [place] [address] 87067- 5914 Apr, [place] [address] 62801- 7240 Apr, Primary osteoarthritis of right knee M17.11 [place] [address] 95072- 2582 Mar, [place] [address] 41592- 3844 Mar, BMI 50.0-59.9, adult Z68.43 and Bipolar disorder, in partial remission, most recent episode depressed F31.75 [place] [address] 44604- 9200 Mar, Diabetes E11.9 ; Pure hypercholesterolemia E78.00 ; Essential hypertension I10 ; Nausea with vomiting, unspecified R11.2 and Headache, unspecified headache type R51 [place] [id number] [place] [address] 55769- 2759 Mar, Bipolar I disorder, most recent episode (or current) mixed, moderate F31.62 [facility] [id number] [place] [address] 44626- 1542 Mar, Bipolar I disorder, most recent episode (or current) mixed, moderate F31.62 [place] [id number] [place] [address] 13833- 8225 Mar, Chronic pain G89.29 [place] [address] 11496- 7975 Mar, Bipolar I disorder, most recent episode (or current) mixed, moderate F31.62 [facility] [id number] [place] [address] 58607- 7459 Feb, Bipolar I disorder, most recent episode (or current) mixed, moderate F31.62 [facility] [address] [place] [address] 92607- 6044 Feb, Chronic pain G89.29 [facility] [id number] [place] [address] 75919- 3389 Feb, Decubitus ulcer of right foot, stage 3 L89.893 and BMI 50.0- 59.9, adult Z68.43 [facility] [id number] [place] [address] 18821- 4172 Feb, Bipolar I disorder, most recent episode (or current) mixed, moderate F31.62 [facility] [id number] [place] [address] 08607- 0404 Feb, [facility] [id number] [place] [address] 21187- 8487 January, [facility] [id number] [place] [address] 59496- 9851 January, Chronic pain G89.29 [facility] [address] [place] [address] 10228- 8730 January, Bipolar I disorder, most recent episode (or current) mixed, moderate F31.62 [facility] [address] [place] [address] 64599- 4973 January, Bipolar I disorder, most recent episode (or current) mixed, moderate F31.62 [facility] [address] [place] [address] 10043- 5663 Dec, Bipolar I disorder, most recent episode (or current) mixed, moderate F31.62 and BMI 50.0-59.9, adult Z68.43 [facility] [id number] [place] [address] 77992- 5583 Dec, Bipolar I disorder, most recent episode (or current) mixed, moderate F31.62 [facility] [id number] [place] [address] 02750- 6788 Dec, Chronic pain G89.29 [place] [address] 05666- 3854 Dec, DM neuro manif type II E11.49 ; Right flank pain R10.9 ; 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 ; Encounter for medication monitoring Z51.81 and BMI 50.0-59.9, adult Z68.43 [place] [address] 36792- 7226 Dec, Bipolar I disorder, most recent episode (or current) mixed, moderate F31.62 [place] [address] 78320- 5205 Nov, Bipolar I disorder, most recent episode (or current) mixed, moderate F31.62 [facility] [id number] [place] [address] 19408- 8695 Nov, Chronic pain G89.29 [place] [id number] [place] [address] 05124- 8392 Nov, Bipolar I disorder, most recent episode (or current) mixed, moderate F31.62 [facility] [id number] [place] [address] 73179- 4965 Nov, Hypokalemia E87.6 [facility] [id number] [place] [address] 95055- 0716 Nov, Bipolar I disorder, most recent episode (or current) mixed, moderate F31.62 [facility] [id number] [place] [address] 76383- 6819 Oct, Chronic pain G89.29 [place] [address] 61120- 1378 Oct, BMI 50.0-59.9, adult Z68.43 and Bipolar I disorder, most recent episode (or current) mixed, moderate F31.62 [facility] [id number] [place] [address] 92876- 3400 Oct, Bipolar I disorder, most recent episode (or current) mixed, moderate F31.62 [facility] [id number] [place] [address] 42153- 5553 Oct, [facility] [id number] [place] [address] 90076- 1177 Oct, Hypokalemia E87.6 [facility] [id number] [place] [address] 45374- 2783 Oct, DM neuro manif type II E11.49 [facility] [id number] [place] [address] 51298- 9688 Oct, Bipolar I disorder, most recent episode (or current) mixed, moderate F31.62 [facility] [id number] [place] [address] 66228- 2450 Oct, Bipolar I disorder, most recent episode (or current) mixed, moderate F31.62 [facility] [id number] [place] [address] 71571- 9126 Oct, Hyperkalemia E87.5 ; Falling R29.6 ; BMI 50.0-59.9, adult Z68.43 and Acute left ankle pain M25.572 [facility] [id number] [place] [address] 73687- 3813 Oct, DM neuro manif type II E11.49 [facility] [id number] [place] [address] 08315- 5414 Oct, [facility] [id number] [place] [address] 19093- 6454 Sep, Chronic pain G89.29 [place] [id number] [place] [address] 09186- 3822 Sep, [place] [address] 42296- 3964 Sep, Bilateral primary osteoarthritis of knee M17.0 [place] [id number] [place] [address] 62555- 7878 Sep, Generalized edema R60.1 [place] [address] 40557- 4678 Sep, Bipolar I disorder, most recent episode (or current) mixed, moderate F31.62 [place] [id number] [place] [address] 77917- 2896 Sep, Hypoxia R09.02 ; Other hypervolemia E87.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 ; Anemia of chronic illness D63.8 and BMI 50.0- 59.9, adult Z68.43 [place] [id number] [place] [address] 51687- 5853 Sep, [place] [id number] [place] [address] 88788- 2527 Sep, Bipolar I disorder, most recent episode (or current) mixed, moderate F31.62 [place] [id number] [place] [address] 68343- 5601 Aug, Chronic pain G89.29 [place] [id number] [place] [address] 45770- 2384 Aug, Generalized edema R60.1 [place] [id number] [place] [address] 81089- 9926 Aug, [place] [id number] [place] [address] 54178- 6831 Aug, [place] [address] [place] [address]- 8533 14 Aug, 2017 Bipolar I disorder, most recent episode (or current) mixed, moderate F31.62 [facility] [id number] [place] [address] 50103- 0396 07 Aug, 2017 Bipolar I disorder, most recent episode (or current) mixed, moderate F31.62 [place] [id number] [place] [address] 18039- 8979 Aug, Chronic pain G89.29 [place] [id number] [place] [address] 04244- 0669 Jul, Bipolar I disorder, most recent episode (or current) mixed, moderate F31.62 [place] [id number] [place] [address] 68392- 3399 Jul, Bipolar I disorder, most recent episode (or current) mixed, moderate F31.62 and BMI 60.0-69.9, adult Z68.44 [place] [id number] [place] [address] 32632- 5708 Jul, Bipolar I disorder, most recent episode (or current) mixed, moderate F31.62 [place] [id number] [place] [address] 78060- 5423 Jul, Chronic pain G89.29 [place] [id number] [place] [address] 16011- 0836 Jul, Bipolar I disorder, most recent episode (or current) mixed, moderate F31.62 [place] [address] [place] [address] 40603- 8625 Jun, Polyneuropathy associated with underlying disease G63 and Diabetes E11.9 [place] [id number] [place] [address] 21508- 8393 Jun, Bipolar I disorder, most recent episode (or current) mixed, moderate F31.62 [place] [id number] [place] [address] 76865- 2995 Jun, Chronic pain G89.29 [facility] [id number] [place] [address] 20987- 2675 27 May, 2017 Bipolar I disorder, most recent episode (or current) mixed, moderate F31.62 [facility] [id number] [place] [address] 88874- 7492 21 May, 2017 Bipolar I disorder, most recent episode (or current) mixed, moderate F31.62 [facility] [id number] [place] [address] 05094- 5281 20 May, 2017 Diabetic polyneuropathy associated with type 2 diabetes mellitus E11.42 [facility] [id number] [place] [address] 63667- 7693 18 May, 2017 Bipolar I disorder, most recent episode (or current) mixed, moderate F31.62 [facility] [id number] [place] [address] 42901- 9164 13 May, 2017 Bipolar I disorder, most recent episode (or current) mixed, moderate F31.62 [facility] [id number] [place] [address] 75237- 3925 May, Chronic pain G89.29 [facility] [id number] [place] [address] 31743- 6645 Apr, Bipolar I disorder, most recent episode (or current) mixed, moderate F31.62 [facility] [id number] [place] [address] 72299- 5377 Apr, [facility] [id number] [place] [address] 67395- 2376 Apr, Chronic pain G89.29 and DM neuro manif type II E11.49 [facility] [id number] [place] [address] 09956- 6885 Apr, [facility] [id number] [place] [address] 02224- 9145 Apr, Bipolar I disorder, most recent episode (or current) mixed, moderate F31.62 [facility] [address] [address]- 8860 Apr, Chronic pain G89.29 [facility] [address] [place] [address] 95647- 0166 Apr, Iliotibial band syndrome, left M76.32 [facility] [id number] [place] [address] 37990- 3886 Apr, Bipolar I disorder, most recent episode (or current) mixed, moderate F31.62 [facility] [id number] [place] [address] 35236- 4586 Mar, Bipolar I disorder, most recent episode (or current) mixed, moderate F31.62 [facility] [address] [place] [address] 77100- 4800 Mar, Bipolar I disorder, most recent episode (or current) mixed, moderate F31.62 [facility] [address] [address]- 7014 Mar, [facility] [id number] [place] [address] 23052- 3609 Mar, Bipolar I disorder, most recent episode (or current) mixed, moderate F31.62 [facility] [address] [address]- 8522 Mar, Chronic pain G89.29 [facility] [address] [place] [address] 34394- 7454 Mar, Bipolar I disorder, most recent episode (or current) mixed, moderate F31.62 [facility] [address] [address]- 2451 Mar, Bipolar I disorder, most recent episode (or current) mixed, moderate F31.62 [facility] [address] [address]- 3950 Mar, Acute pain of left knee M25.562 ; Left hip pain M25.552 ; Generalized edema R60.1 and Tongue swelling R22.0 [facility] [id number] [place] [address] 86150- 1928 Mar, [facility] [id number] [place] [address] 45407- 9712 Feb, Chronic pain G89.29 [facility] [id number] [place] [address] 84573- 3269 Feb, Diabetes E11.9 [facility] [id number] [place] [address] 61988- 5597 January, Chronic pain G89.29 [facility] [id number] [place] [address] 69813- 6105 January, [facility] [id number] [place] [address] 78342- 2368 January, Bipolar I disorder, most recent episode (or current) mixed, moderate F31.62 [facility] [id number] [place] [address] 27205- 2405 Dec, Bipolar I disorder, most recent episode (or current) mixed, moderate F31.62 [facility] [address] [place] [address] 13307- 1033 Dec, Chronic pain G89.29 [facility] [id number] [place] [address] 41646- 5178 Dec, Bipolar I disorder, most recent episode (or current) mixed, moderate F31.62 [facility] [address] [place] [address] 71471- 7707 Dec, Diabetes E11.9 ; Essential hypertension I10 ; Chronic pain G89.29 and Morbid obesity E66.01 [facility] [id number] [place] [address] 24949- 3370 Dec, [facility] [id number] [place] [address] 02366- 7240 Dec, Bipolar I disorder, most recent episode (or current) mixed, moderate F31.62 [facility] [address] [place] [address] 98273- 1946 Dec, Bipolar I disorder, most recent episode (or current) mixed, moderate F31.62 [facility] [address] [address]- 5796 Nov, Chronic pain G89.29 [facility] [id number] [place] [address] 02151- 7499 Nov, Bipolar I disorder, most recent episode (or current) mixed, moderate F31.62 [facility] [id number] [place] [address] 64070- 0766 Nov, [facility] [id number] [place] [address] 46216- 2530 Nov, Bipolar I disorder, most recent episode (or current) mixed, moderate F31.62 [facility] [address] [place] [address] 21651- 5553 Nov, Bipolar I disorder, most recent episode (or current) mixed, moderate F31.62 [facility] [id number] [place] [address] 91128- 4636 Nov, [facility] [address] [address]- 7211 Nov, [facility] [address] [address]- 3129 Nov, [facility] [address] [address]- 1181 Oct, Chronic pain G89.29 [facility] [address] [address]- 6726 Oct, Bipolar I disorder, most recent episode (or current) mixed, moderate F31.62 [facility] [id number] [place] [address] 89948- 1371 Oct, [facility] [id number] [place] [address] 45232- 7896 Oct, Chronic pain G89.29 ; Diabetes E11.9 ; Anxiety F41.9 and 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 [facility] [address] [place] [address] 76048- 2746 Oct, [facility] [id number] [place] [address] 77934- 4796 Oct, Diabetes E11.9 [facility] [id number] [place] [address] 52222- 7783 Oct, Bipolar I disorder, most recent episode (or current) mixed, moderate F31.62 [facility] [id number] [place] [address] 16850- 9809 Sep, Chronic pain G89.29 [facility] [id number] [place] [address] 78455- 4178 Sep, Chronic pain G89.29 [facility] [id number] [place] [address] 66186- 1492 Aug, Chronic pain G89.29 [facility] [id number] [place] [address] 86192- 4491 Jul, [facility] [id number] [place] [address] 92787- 7694 Jul, Diabetes E11.9 [facility] [address] [address]- 7484 Jul, Chronic pain G89.29 [facility] [id number] [place] [address] 76041- 6344 Jul, Bipolar I disorder, most recent episode (or current) mixed, moderate F31.62 [facility] [address] [place] [address] 67001- 8957 Jun, Bipolar I disorder, most recent episode (or current) mixed, moderate F31.62 [facility] [id number] [place] [address] 64474- 3244 Jun, [facility] [id number] [place] [address] 78185- 7993 Jun, Bipolar I disorder, most recent episode (or current) mixed, moderate F31.62 [place] [id number] [place] [address] 51404- 3551 30 May, 2016 Insomnia, unspecified type G47.00 [place] [id number] [place] [address] 98155- 0701 May, Bipolar I disorder, most recent episode (or current) mixed, moderate F31.62 [place] [id number] [place] [address] 34783- 9268 14 May, 2016 [place] [id number] [place] [address] 73961- 3192 May, Bipolar I disorder, most recent episode (or current) mixed, moderate F31.62 [place] [id number] [place] [address] 10684- 4770 May, Diabetes E11.9 and Essential hypertension I10 [place] [id number] [place] [address] 57195- 0058 Apr, Chronic pain G89.29 [place] [id number] [place] [address] 30387- 5606 Apr, Bipolar I disorder, most recent episode (or current) mixed, moderate F31.62 [facility] [id number] [place] [address] 90557- 4064 Apr, [facility] [id number] [place] [address] 88028- 0580 Apr, [facility] [id number] [place] [address] 02745- 2237 Mar, Chronic pain G89.29 ; Headache, unspecified headache type R51 ; Neuropathy G62.9 ; Pain of right hip joint M25.551 and Essential hypertension I10 [place] [id number] [place] [address] 39114- 6163 Mar, Chronic pain G89.29 [facility] [id number] [place] [address] 00763- 4501 Mar, Bipolar I disorder, most recent episode (or current) mixed, moderate F31.62 [place] [id number] [place] [address] 71515- 9554 Feb, Bipolar I disorder, most recent episode (or current) mixed, moderate F31.62 and Insomnia, unspecified type G47.00 [place] [id number] [place] [address] 87724- 7087 Feb, Chronic pain G89.29 [address] [address] 92920- 7566 Feb, Bipolar I disorder, most recent episode (or current) mixed, moderate F31.62 [address] 25932- 3983 January, Bipolar I disorder, most recent episode (or current) mixed, moderate F31.62 [place] [id number] [place] [address] 69026- 8313 January, Chronic pain G89.29 [place] [id number] [place] [address] 83925- 1103 January, Chronic pain G89.29 and Essential hypertension I10 [place] [id number] [place] [address] [phone]- [phone] January, Bipolar I disorder, most recent episode (or current) mixed, moderate F31.62 [place] [id number] [place] [address] [phone]- 3816 Dec, [place] [address] [place] [address] Dec, [facility] [id number] [place] [address] 46965- 5937 Dec, [facility] [id number] [place] [address] [phone]- 0245 Dec, [facility] [id number] [place] [address] [phone]- [phone] Nov, Reactive airway disease J45.909 [facility] [id number] [place] [address] 18339- 9141 Nov, [facility] [address] 95171- 1442 Nov, [facility] [id number] [place] [address] 50319- 0592 Nov, [facility] [address] 02474- 8754 Nov, [facility] [id number] [place] [address] 37666- 7872 Nov, Onychomycosis B35.1 ; Hammertoe M20.40 ; [place] or callus L84 and DM neuro manif type II E11.49 [facility] [id number] [place] [address] 61035- 6092 Nov, Chronic pain G89.29 ; Leukocytosis D72.829 and Diabetes E11.9 [facility] [id number] [place] [address] 37461- 9440 Nov, [facility] [id number] [place] [address] 09963- 8396 Oct, Bronchitis J40 [facility] [id number] [place] [address] 33333- 9061 Oct, [facility] [id number] [place] [address] 38923- 3200 Oct, [facility] [id number] [place] [address] 83511- 9260 Oct, Mastoiditis, unspecified laterality H70.90 and Type 2 diabetes mellitus with complication E11.8 [facility] [id number] [place] [address] 28897- 0023 Sep, [facility] [id number] [place] [address] 87994- 2156 Sep, Dysuria R30.0 ; Cough R05 ; Benign prostatic hyperplasia with lower urinary tract symptoms, unspecified morphology N40.1 ; Hypokalemia E87.6 and Eustachian tube dysfunction, unspecified laterality H69.80 [facility] [id number] [place] [address] 96008- 5984 Sep, Moderate mixed bipolar I disorder F31.62 [facility] [id number] [place] [address] 49129- 1301 Sep, Hypokalemia E87.6 [facility] [id number] [place] [address] 29931- 4076 Sep, [facility] [id number] [place] [address] 52080- 3532 Sep, Upper respiratory tract infection, unspecified type J06.9 [facility] [id number] [place] [address] 25827- 5822 Aug, [facility] [id number] [place] [address] 94666- 8173 Aug, Dysuria R30.0 [facility] [id number] [place] [address] 59292- 6050 Aug, [facility] [id number] [place] [address] 90370- 2324 Jul, [facility] [id number] [place] [address] 20017- 6112 Jul, [facility] [id number] 7439 Jul, [facility] [address] 2309 Jul, [facility] [address] [address]- 6343 Jun, [facility] [address] 3244 Jun, [facility] [address] [address]- 5464 Jun, [facility] [id number] [place] [address] 699470- 3150 May, [facility] [address] [address]- 6104 May, Bipolar I disorder, most recent episode (or current) mixed, moderate 296.62 [facility] [address] [address]- 3845 May, [facility] [address] [address]- 1834 May, Bipolar I disorder, most recent episode (or current) mixed, moderate 296.62 and Major depressive disorder, recurrent episode, severe, specified as with psychotic behavior 296.34 [facility] [address] [address]- 6090 May, Bipolar I disorder, most recent episode (or current) mixed, moderate 296.62 [facility] [address] [address]- 4631 May, [facility] [address] 8707 Apr, [facility] [address] [address]- 6510 Apr, [facility] [address] [address]- 3756 Apr, Unspecified disorder of kidney and ureter 593.9 and Diabetes mellitus type 2, uncontrolled 250.02 [facility] [id number] [place] [address] 28372- 2946 Apr, [facility] [id number] [place] [address] 39546- 6935 Apr, [facility] [id number] [place] [address] 24137- 2339 Apr, [facility] [id number] [place] [address] 74643- 8847 Apr, [facility] [id number] [place] [address] 28845- 2957 Apr, Diabetes mellitus type II, uncontrolled 250.02 [facility] [id number] [place] [address] 20557- 0772 Apr, [facility] [id number] [place] [address] 16458- 7531 Mar, [facility] [id number] [place] [address] 43053- 9595 Mar, [facility] [id number] [place] [address] 57041- 7335 Mar, [facility] [id number] [place] [address] 67934- 4908 Mar, Major depressive disorder, recurrent episode, severe, specified as with psychotic behavior 296.34 and Bipolar I disorder, most recent episode (or current) mixed, moderate 296.62 [facility] [id number] [place] [address] 93048- 0670 Mar, Diabetes 250.00 ; Anuria 788.5 ; Nausea and vomiting 787.01 and Diarrhea 787.91 [facility] [address], [place] [address]- 0331 Mar, Diabetes 250.00 [facility] [id number] [address]- 8455 Mar, [facility] [address], [place] [address]- 8924 Mar, Diabetes 250.00 [facility] [address] [address]- 8147 Mar, [facility] [id number] [place] [address] 12002- 5163 Mar, [facility] [id number] [place] [address] 17446- 8434 Mar, [facility] [id number] [place] [address] 33270- 4315 Mar, [facility] [id number] [place] [address] 12264- 6148 Mar, Bipolar I disorder, most recent episode (or current) mixed, moderate 296.62 and Major depressive disorder, recurrent episode, severe, specified as with psychotic behavior 296.34 [facility] [address] [address]- 2633 Mar, Magnesium deficiency 275.2 ; Hypokalemia 276.8 ; Nausea & vomiting 787.01 and Diabetes mellitus type 2, uncontrolled 250.02 [facility] [address] [address]- 7502 Feb, [facility] [id number] [place] [address] 64262- 7126 Feb, Bipolar I disorder, most recent episode (or current) mixed, moderate 296.62 [facility] [address] [address]- 6491 Feb, Nausea and vomiting 787.01 ; Left elbow pain 719.42 ; Anuria 788.5 and Diabetes 250.00 [facility] [address], [place] [address]- 9468 Feb, [facility] [id number] [place] [address] 90428- 5975 Feb, Hypopotassemia 276.8 and Hypokalemia 276.8 [facility] [address] [address]- 7256 Feb, Hypopotassemia 276.8 and Hypokalemia 276.8 [facility] [address] [address]- 6832 Feb, Seborrheic keratoses 702.19 [facility] [id number] [place] [address] 94203- 2527 Feb, Hypopotassemia 276.8 and Low magnesium levels 275.2 [facility] [id number] [place] [address] 22343- 3175 January, [facility] [id number] [place] [address] 63075- 2429 January, [facility] [id number] [place] [address] 86858- 1942 January, [facility] [id number] [place] [address] 34897- 2254 January, Scalp lesion 709.9 [facility] [id number] [place] [address] 16422- 5886 January, [facility] [id number] [place] [address] 39862- 0632 Dec, Tear of medial cartilage or meniscus of knee, current 836.0 and 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 [facility] [address] [address]- 0846 Dec, [facility] [id number] [place] [address] 70668- 2416 Dec, [facility] [address] [address]- 1105 Dec, Squamous cell carcinoma, 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 [facility] [id number] [place] [address]- 6679 14 Dec, 2014 [facility] [address] [id number] [place] [address]- 1740 13 Dec, 2014 [facility] [place] [facility] [address] [id number] [place] [address]- 7046 Nov, [facility] [place] [facility] [address] [id number] [place] [address]- 6066 Nov, [facility] [place] [facility] [address] [id number] [place] [address]- 3234 Nov, [facility] [place] [facility] [address] [id number] [place] [address]- 0656 Nov, [facility] [place] [facility] [address] [id number] [place] [address]- 9420 Nov, [facility] [place] [facility] [address] [id number] [place] [address]- 0387 Nov, [facility] [place] [facility] [address] [id number] [place] [address]- 3949 Nov, [facility] [place] [facility] [address] [id number] [place] [address]- 3352 Nov, [facility] [place] [facility] [address] [facility] [id number] [place] [address]- 1370 Nov, [facility] [place] [facility] [address] [id number] [place] [address]- 6846 Nov, [facility] [place] [facility] [address] [id number] [place] [address]- 9653 Nov, [facility] [place] [facility] [address] [id number] [place] [address]- 7260 Nov, [facility] [place] [facility] [address] [id number] [place] [address]- 2563 Oct, [facility] [place] [facility] [address] [id number] [place] 6912 Oct, [facility] [place] [facility] [address] [id number] [place] [address]- 9180 Oct, 2014 [facility] [place] [facility] [address] [id number] [place] [address]- 6366 Oct, [facility] [place] [facility] [address] [id number] [place] [address]- 9797 Oct, 2014 [facility] [place] [facility] [address] [id number] [place] [address]- 4601 Oct, 2014 [facility] [place] [facility] [address] [id number] [place] [address]- 9817 Oct, [facility] [place] [facility] [address] [id number] [place] [address]- 5160 Oct, [facility] [place] [facility] [address] [id number] [place] [address]- 1607 Oct, [facility] [place] [facility] [address] [id number] [place] [address]- 1299 Sep, [facility] [place] [facility] [address] [id number] [place] [address]- 0628 Sep, [facility] [place] [facility] [address] [id number] [place] [address]- 2257 Sep, [facility] [place] [facility] [address] [id number] [address]- 1960 Sep, [facility] [place] [facility] [address] [id number] [address]- 1807 Sep, [facility] [place] [facility] [address] [id number] [place] [address]- 6922 Sep, [facility] [place] [facility] [address] [id number] [place] [address]- 6092 Sep, [facility] [place] [facility] [address] [id number] [place] [address]- 8641 Sep, [facility] [place] [facility] [address] [id number] [place] [address]- 8526 14 Sep, 2014 [facility] [address] [id number] [place] [address]- 7001 Sep, [facility] [place] [facility] [address] [id number] [place] [address]- 3339 08 Sep, 2014 [facility] [address] [id number] [place] [address]- 1526 Sep, [facility] [address] [id number] [place] [address]- 5513 Sep, [facility] [address] [id number] [place] [address]- 5235 Sep, [facility] [address] [id number] [place] [address]- 3920 Sep, [facility] [address] [id number] [place] [address]- 0237 Sep, [facility] [address] [id number] [place] [address]- 6338 Aug, [facility] [address] [id number] [place] [address]- 0318 Aug, [facility] [address] [id number] [place] [address]- 4967 Aug, [facility] [place] [facility] [address] [id number] [place] [address]- 4366 31 Aug, 2014 [facility] [place] [facility] [address] [id number] [place] [address]- 7329 31 Aug, 2014 [facility] [place] [facility] [address] [id number] [place] [address]- 7159 31 Aug, 2014 [facility] [place] [facility] [address] [id number] [place] [address]- 6616 17 Aug, 2014 [facility] [place] [facility] [address] [id number] [place] 1751 Aug, [facility] [address] [id number] [place] [address]- 1163 Aug, [facility] [address] [id number] [place] [address]- 9228 Aug, [facility] [address] [id number] [place] [address]- 8621 Aug, [facility] [address] [place] [id number] Aug, [facility] [address] [id number] [place] [address]- 5440 Aug, [facility] [address] [id number] [place] [address]- 3925 Aug, [facility] [address] [id number] [place] [address]- 9065 Aug, [facility] [address] [id number] [place] [address]- 8676 Aug, [facility] [address] [id number] [place] [address]- 3830 Aug, [facility] [address] [id number] [place] [address]- 0682 Aug, [facility] [address] [id number] [place] [address]- 5190 Aug, [facility] [address] [id number] [place] [address]- 7062 Aug, [facility] [address] [id number] [place] [address]- 1672 Aug, [facility] [place] [facility] [address] [id number] [place] [address]- 6400 Aug, [facility] [address] [id number] [place] 6702 03 Aug, 2014 [facility] [address] [id number] [place] [address]- 8609 Aug, [facility] [place] [facility] [address] [id number] [place] [address]- 4464 Aug, [facility] [place] [facility] [address] [id number] [place] 0667 Aug, [facility] [place] [facility] [address] [facility] [id number] [place] 2927 Aug, [facility] [place] [facility] [address] [id number] [place] 1431 Aug, [facility] [place] [facility] [address] [id number] [place] [address]- 2003 Aug, [facility] [place] [facility] [address] [id number] [place] [address]- 8692 Aug, [facility] [place] [facility] [address] [id number] [place] [address]- 5955 Jul, [facility] [place] [facility] [address] [id number] [place] [address]- 6284 Jul, [facility] [place] [facility] [address] [id number] [place] [address]- 0422 Jul, [facility] [place] [facility] [address] [id number] [place] [address]- 6983 Jul, [facility] [place] [facility] [address] [id number], [place] [address]- 9850 Jul, [facility] [place] [facility] [address] [id number], [place] [address]- 0413 Jul, [facility] [place] [facility] [address] [id number], [place] [address]- 7506 Jul, [facility] [place] [facility] [address] [id number], [place] [address]- 8580 Jul, [facility] [place] [facility] [address] [facility] [id number][place] [address]- 2937 Jul, [facility] [place] [facility] [address] [id number] [place] [address]- 8428 Jul, [facility] [place] [facility] [address] [id number] [place] [address]- 4436 Jun, [facility] [place] [facility] [address] [id number] [place] [address]- 8467 Jun, [facility] [place] [facility] [address] [id number] [place] [address]- 4799 Jun, [facility] [place] [facility] [address] [id number] [place] [address]- 1643 Jun, [facility] [place] [facility] [address] [id number] [place] [address]- 8716 Jun, [facility] [place] [facility] [address] [id number] [place] [address]- 2968 Jun, [facility] [place] [facility] [address] [id number] [place] [address]- 0603 Jun, [facility] [place] [facility] [address] [id number] [place] [address]- 1782 Jun, [facility] [place] [facility] [address] [id number] [place] [address]- 4435 Jun, [facility] [place] [facility] [address] [id number] [place] [address]- 8689 Jun, [facility] [place] [facility] [address] [id number] [place] [address]- 5497 29 May, 2013 [facility] [place] [facility] [address] [id number] [place] [address]- 9932 29 Sep, 2013 [facility] [place] [facility] [address] [id number] [place] [address]- 2567 26 Sep, 2013 [facility] [place] [facility] [address] [id number] [place] [address]- 5174 26 May, 2013 [facility] [place] [facility] [address] [id number] [place] [address]- 6788 17 May, 2013 [facility] [place] [facility] [address] [id number] [place] [address]- 7279 17 May, 2013 [facility] [place] [facility] [address] [id number] [place] [address]- 4685 15 May, 2013 [facility] [place] [facility] [address] [id number] [place] [address]- 7539 15 May, 2013 [facility] [place] [facility] [address] [id number] [place] [address] 2540 15 May, 2013 [facility] [place] [facility] [address] [id number] [place] [address]- 3076 15 May, 2013 [facility] [place] [facility] [address] [id number] [place] [address]- 6129 10 May, 2013 [facility] [place] [facility] [address] [id number] [place] [address]- 3429 10 May, 2013 [facility] [place] [facility] [address] [id number] [place] [address]- 2436 09 May, 2013 [facility] [place] [facility] [address] [id number] [place] [address]- 1317 09 May, 2013 [facility] [place] [facility] [address] [id number] [place] [address]- 17[address] 04 May, 2013 [facility] [place] [facility] [address] [id number] [place] [address] May, 2013 [facility] [place] [facility] [address] [id number] [place] [address] Apr, [facility] [place] [facility] [address] [id number] [place] [address] Apr, [facility] [place] [facility] [address] [id number] [place] [address] Apr, [facility] [place] [facility] [address] [id number] [place] [address] Apr, [facility] [place] [facility] [address] [id number] [place] [address] Apr, [facility] [place] [facility] [address] [id number] [place] [address] Apr, [facility] [place] [facility] [address] [id number] [place] [address] Apr, [facility] [place] [facility] [address] [id number] [place] [address] 28[address] Apr, [facility] [place] [facility] [address] [id number] [place] [address]- [address] Apr, [facility] [place] [facility] [address] [id number] [place] [address] Apr, [facility] [place] [facility] [address] [id number] [place] [address] Apr, [facility] [place] [facility] [address] [id number] [place] [address] Apr, [facility] [place] [facility] [address] [id number] [place] [address] Apr, [facility] [place] [facility] [address] [id number] [place] [address] Apr, [facility] [place] [facility] [address] [id number] [place] [address]- [address]753 Apr, [facility] [place] [facility] [address] [id number] [place] [address] Mar, [facility] [place] [facility] [address] [id number] [place] [address] Mar, [facility] [place] [facility] [address] [id number] [place] [address] Mar, [facility] [place] [facility] [address] [id number] [place] [address] Mar, [facility] [place] [facility] [address] [id number] [place] [address]- [address]287 Mar, [facility] [place] [facility] [address] [id number] [place] [address] Mar, 2013 [facility] [place] [facility] [address] [id number] [place] [address]- 3918 Mar, 2013 [facility] [place] [facility] [address] [id number] [place] [address]- 4935 Mar, 2013 [facility] [place] [facility] [address] [id number] [place] [address]- [address] Mar, 2013 [facility] [place] [facility] [address] [id number] [place] [address]- 94[address] Mar, 2013 [facility] [place] [facility] [address] [id number] [place] [address]- [address]003 Mar, 2013 [facility] [place] [facility] [address] [id number] [place] [address]- 289[address] Mar, 2013 [facility] [place] [facility] [address] [id number] [place] [address]- [address]185 Mar, 2013 [facility] [place] [facility] [address] [id number] [place] [address] Mar, 2013 [facility] [place] [facility] [address] [id number] [place] [address] Mar, 2013 [facility] [place] [facility] [address] [id number] [place] [address]- [address] Mar, 2013 [facility] [place] [facility] [address] [id number] [place] [address]- 295[address] Mar, 2013 [facility] [place] [facility] [address] [id number] [place] [address]- 1486 Mar, [facility] [place] [facility] [address] [id number] [place] [address] 4697 Feb, [facility] [place] [facility] [address] [id number] [place] [address] 1464 Feb, [facility] [place] [facility] [address] [id number] [place] [id number] [address] Feb, [facility] [place] [facility] [address] [id number] [place] [address]782 Feb, [facility] [place] [facility] [address] [id number] [place] [address]- 0572 Feb, [facility] [place] [facility] [address] [id number] [place] [address] 0749 Feb, [facility] [place] [facility] [address] [id number] [place] [address] 39[address] Feb, [facility] [place] [facility] [address] [id number] [place] [address] 6[address] Feb, [facility] [place] [facility] [address] [id number] [place] [address] 9393 Feb, [facility] [place] [facility] [address] [id number] [place] [address] 6698 Feb, [facility] [place] [facility] [address] [id number] [place] [address] 12[address] Feb, [facility] [place] [facility] [address] [id number] [place] [address]249 Feb, [facility] [place] [facility] [address] [id number] [place] [address]- 99[address] Feb, [facility] [place] [facility] [address] [id number] [place] [address]- 6946 Feb, [facility] [place] [facility] [address] [id number] [place] [address] 60[address] January, [facility] [place] [facility] [address] [id number] [place] [address] 100[address] January, [facility] [place] [facility] [address] [id number] [place] [address]- 0936 January, [facility] [place] [facility] [address] [id number] [place] [address]- 9[address] January, [facility] [place] [facility] [address] [id number] [place] [address]- [address] January, [facility] [address] [id number] [place] [address]- 359[address] January, [facility] [place] [facility] [address] [id number] [place] [address] January, [facility] [place] [facility] [address] [id number] [place] [address] 38[address] January, [facility] [place] [facility] [address] [id number] [place] [address] January, [facility] [place] [facility] [address] [id number] [place] [address] 9321 January, [facility] [place] [facility] [address] [id number] [place] [address]61 January, [facility] [address] [id number] [place] [address] 69[address] January, [facility] [place] [facility] [address] [id number] [place] [address] 9149 January, [facility] [place] [facility] [address] [id number] [place] [address] 4544 January, [facility] [place] [facility] [address] [id number] [place] [address] Dec, [facility] [place] [facility] [address] [id number] [place] [address] 7062 Dec, [facility] [place] [facility] [address] [id number] [place] [address] 9993 Dec, [facility] [place] [facility] [address] [id number] [place] [address] 0479 Dec, [facility] [place] [facility] [address] [id number] [place] [address]- 0679 Dec, [facility] [place] [facility] [address] [id number] [place] [address] 7225 Dec, [facility] [place] [facility] [address] [id number] [place] [address]- 8729 Dec, [facility] [place] [facility] [address] [id number] [place] [address]- 3867 Dec, [facility] [place] [facility] [address] [id number] [place] [address]- 1016 Dec, [facility] [place] [facility] [address] [id number] [place] [address]- 0349 Dec, [facility] [place] [facility] [address] [id number] [place] [address]- 4364 Nov, [facility] [place] [facility] [address] [id number] [place] [address]- 1208 Nov, [facility] [place] [facility] [address] [id number] [place] [address] 1908 Nov, [facility] [place] [facility] [address] [id number] [place] [address]- 1634 Nov, [facility] [place] [facility] [address] [id number] [place] [address]- 7744 Nov, [facility] [place] [facility] [address] [id number] [place] [address]- 1443 Nov, [facility] [place] [facility] [address] [id number] [place] [address]- 6734 Nov, [facility] [place] [facility] [address] [id number] [place] [address]- 3216 Nov, [facility] [place] [facility] [address] [id number] [place] [address]- 4019 Nov, [facility] [place] [facility] [address] [id number] [place] [address] Nov, [facility] [place] [facility] [address] [id number] [place] [address]- 0858 Oct, [facility] [place] [facility] [address] [id number] [place] [address]- 4991 Oct, [facility] [place] [facility] [address] [id number] [place] [address]- 1276 Oct, [facility] [place] [facility] [address] [id number] [place] [address]- 7396 Oct, [facility] [place] [facility] [address] [facility] [id number] [place] [address]- 7756 Oct, [facility] [place] [facility] [address] [id number] [place] [address]- 5726 Oct, [facility] [place] [facility] [address] [id number] [place] [address]- 8286 Oct, [facility] [place] [facility] [address] [id number] [place] [address]- 6496 Oct, [facility] [place] [facility] [address] [facility] [id number] [place] [address] 1908 Oct, [facility] [place] [facility] [address] [facility] [id number] [place] [address]- 8297 Oct, [facility] [place] [facility] [address] [facility] [id number] [place] [address]- 1317 Oct, [facility] [place] [facility] [address] [facility] [id number] [place] [address]- 3019 Oct, [facility] [place] [facility] [address] [facility] [id number] [place] [address]- 3896 Oct, [facility] [place] [facility] [address] [facility] [id number] [place] [address]- 7261 Oct, [facility] [place] [facility] [address] [id number] [place] [address]- 9423 Sep, [facility] [place] [facility] [address] [facility] [id number] [place] [address]- 9898 Sep, [facility] [place] [facility] [address] [facility] [id number] [place] [address]- 1245 Sep, [facility] [address] [id number] [place] [address]- 0423 15 Sep, 2013 [facility] [place] [facility] [address] [id number] [place] [address]- 1602 14 Sep, 2013 [facility] [place] [facility] [address] [id number] [place] [address]- 0402 14 Sep, 2013 [facility] [place] [facility] [address] [id number] [place] [address]- 8595 14 Sep, 2013 [facility] [place] [facility] [address] [id number] [place] [address]- 7891 Sep, [facility] [place] [facility] [address] [id number] [place] [address]- 2336 Sep, [facility] [place] [facility] [address] [id number] [place] [address]- 1482 Sep, [facility] [place] [facility] [address] [id number] [place] [address]- 9419 10 Aug, 2013 [facility] [place] [facility] [address] [id number] [place] [address]- 3847 Aug, [facility] [place] [facility] [address] [id number], [place] [address]- 5618 Jul, [facility] [place] [facility] [address] [id number] [place] [address]- 0050 Jul, [facility] [place] [facility] [address] [id number], [place] [address]- 0166 Jul, [facility] [place] [facility] [address] [id number] [place] [address]- 3608 Jul, [facility] [place] [facility] [address] [id number] [place] [address]- 7102 Jul, [facility] [place] [facility] [address] [id number], [place] [address]- 9272 13 Jul, 2013 [facility] [place] [facility] [address] [id number], [place] [address]- 5009 Jul, [facility] [place] [facility] [address] [id number] [place] [address]- 9032 Jul, [facility] [place] [facility] [address] [id number], [place] [address]- 3677 Jul, [facility] [place] [facility] [address] [facility] [id number] [place] [address]- 2999 Jul, [facility] [place] [facility] [address] [id number] [place] [address]- 3163 Jul, [facility] [place] [facility] [address] [id number] [place] [address]- 7033 Jul, [facility] [place] [facility] [address] [id number] [place] [address]- 1390 Jul, [facility] [place] [facility] [address] [facility] [id number], [place] [address]- 4530 Jul, [facility] [place] [facility] [address] [facility] [id number] [place] [address]- 2547 Jul, [facility] [place] [facility] [address] [facility] [id number][place] [address]- 2804 Jul, [facility] [place] [facility] [address] [facility] [id number], [place] [address]- 9124 Jul, [facility] [place] [facility] [address] [facility] [id number], [place] [address]- 0318 Jul, [facility] [place] [facility] [address] [facility] [id number], [place] [address]- 5394 Jul, [facility] [place] [facility] [address] [id number], [place] [address]- 3084 Jun, [facility] [place] [facility] [address] [facility] [id number], [place] [address]- 6178 Jun, [facility] [place] [facility] [address] [facility] [id number][place] [address]- 7589 Jun, [facility] [place] [facility] [address] [id number] [place] [address]- 6813 16 Jun, 2012 [facility] [place] [facility] [address] [id number] [place] [address]- 2481 16 Jun, 2012 [facility] [place] [facility] [address] [id number] [place] 16 Jun, 2012 [facility] [place] [facility] [address] [id number] [place] [address]- 2991 10 Jun, 2012 [facility] [place] [facility] [address] [id number] [place] [address]- 2482 10 Jun, 2012 [facility] [place] [facility] [address] [id number] [place] [address]- 2820 Jun, 2012 [facility] [place] [facility] [address] [id number] [place] [address]- 1181 09 Jun, 2012 [facility] [place] [facility] [address] [id number] [place] [address]- 0810 Jun, 2012 [facility] [place] [facility] [address] [id number] [place] [address]- 9992 26 Sep, 2012 [facility] [place] [facility] [address] [id number] [place] [address]- 1250 25 Sep, 2012 [facility] [place] [facility] [address] [id number] [place] [address]- 5902 19 Sep, 2012 [facility] [place] [facility] [address] [id number] [place] [address]- 2540 17 Sep, 2012 [facility] [place] [facility] [address] [id number] [place] [address]- 2547 11 Sep, 2012 [facility] [place] [facility] [address] [id number] [place] [address]- 2546 10 Sep, 2012 [facility] [place] [facility] [address] [id number] [place] [address]- 2546 09 Sep, 2012 [facility] [place] [facility] [address] [id number] [place] [address]- 6113 May, [facility] [place] [facility] [address] [id number] [place] [address]- 7187 Apr, [facility] [place] [facility] [address] [id number] [place] [address]- 5193 Apr, [facility] [place] [facility] [address] [id number] [place] [address]- 6351 Apr, [facility] [place] [facility] [address] [id number] [place] [address]- 3419 Apr, [facility] [place] [facility] [address] [id number] [place] [address]- 8409 Apr, [facility] [place] [facility] [address] [id number] [place] [address]- 1426 Mar, [facility] [place] [facility] [address] [id number] [place] [address]- 2628 Mar, [facility] [place] [facility] [address] [id number] [place] [address]- 7347 Mar, [facility] [place] [facility] [address] [id number] [place] [address]- 1421 Mar, [facility] [place] [facility] [address] [id number] [place] [address]- 9884 Mar, [facility] [place] [facility] [address] [id number] [place] [address]- 1387 Mar, [facility] [place] [facility] [address] [id number] [place] [address]- 0117 Mar, [facility] [place] [facility] [address] [id number] [place] [address]- 3398 Mar, [facility] [place] [facility] [address] [id number] [place] [address]- 2341 Feb, [facility] [place] [facility] [address] [id number] [place] [address]- 0954 Feb, [facility] [place] [facility] [address] [id number] [place] [address]- 0121 January, [facility] [address] [id number] [place] [address]- 2459 January, [facility] [address] [id number] [place] [address]- 6425 Dec, [facility] [address] [id number] [place] [address]- 7534 Dec, [facility] [place] [facility] [address] [id number] [place] [address]- 0336 Nov, [facility] [address] [id number] [place] [address]- 7380 Nov, [facility] [address] [id number] [place] [address]- 8540 Nov, [facility] [address] [id number] [place] [address]- 2104 Nov, [facility] [address] [id number] [place] [address]- 8058 Oct, [facility] [address] [id number] [place] [address]- 9333 Oct, [facility] [address] [facility] [id number] [place] [address]- 9957 Oct, [facility] [place] [facility] [address] [id number] [place] [address] 2546 26 Oct, 2012 [facility] [address] [id number] [place] [address] 2547 16 Oct, 2012 [facility] [place] [facility] [address] [id number] [place] [address]- 8653 14 Oct, 2012 [facility] [place] [facility] [address] [facility] [id number] [place] [address] 2546 08 Oct, 2012 [facility] [place] [facility] [address] [facility] [id number] [place] [address] 2544 07 Oct, 2012 [facility] [address] [id number] [place] [address]- 8047 Oct, [facility] [address] [id number] [place] [address]- 0140 Sep, [facility] [address] [id number] [place] [address]- 9008 Sep, [facility] [address] [id number] [place] [address]- 3108 Sep, [facility] [address] [id number] [place] [address]- 0215 Sep, [facility] [address] [id number] [place] [address]- 0525 Sep, [facility] [address] [id number] [place] [address]- 0935 Sep, [facility] [address] [id number] [place] [address]- 3090 Sep, [facility] [address] [id number] [place] [address]- 4343 Sep, [facility] [address] [id number] [place] [address]- 5649 Aug, [facility] [address] [id number] [place] [address]- 8587 Aug, [facility] [place] [facility] [address] [id number] [place] [address]- 3319 Aug, [facility] [place] [facility] [address] [id number] [place] [address]- 8324 Aug, [facility] [place] [facility] [address] [id number] [place] [address]- 3889 Aug, [facility] [place] [facility] [address] [id number] [place] [address]- 8403 Aug, [facility] [place] [facility] [address] [id number] [place] [address]- 4075 Aug, [facility] [place] [facility] [address] [id number] [place] [address]- 3126 Aug, [facility] [place] [facility] [address] [id number] [place] [address]- 1113 Jul, [facility] [place] [facility] [address] [id number] [place] [address]- 8175 Jul, [facility] [place] [facility] [address] [id number] [place] [address]- 2286 Jul, [facility] [place] [facility] [address] [id number] [place] [address], [place] [address]- 8628 Jul, [facility] [place] [facility] [address] [id number] [place] [address]- 2586 Jul, [facility] [place] [facility] [address] [facility] [id number] [place] [address]- 9529 Jul, [facility] [place] [facility] [address] [id number] [place] [address]- 1414 Jun, [facility] [place] [facility] [address] [id number] [place] [address]- 9858 Jun, [facility] [place] [facility] [address] [facility] [id number] [place] [address]- 0825 Jun, [facility] [place] [facility] [address] [facility] [id number] [place] [address]- 0344 Jun, [facility] [place] [facility] [address] [facility] [id number], [place] [address]- 5645 Jun, [facility] [place] [facility] [address] [id number] [place] [address]- 4966 Jun, [facility] [place] [facility] [address] [facility] [id number] [place] [address]- 4332 Jun, [facility] [place] [facility] [address] [id number], [place] [address]- 1808 Jun, [facility] [place] [facility] [address] [id number] [place] [address]- 0478 Jun, [facility] [place] [facility] [address] [id number] [place] [address]- 6206 May, [facility] [place] [facility] [address] [id number] [place] [address]- 4816 24 May, 2012 [facility] [place] [facility] [address] [id number] [place] [address]- 9424 May, [facility] [place] [facility] [address] [id number] [place] [address]- 0684 Apr, [facility] [place] [facility] [address] [id number] [place] [address]- 1332 Apr, [facility] [place] [facility] [address] [id number] [place] [address]- 4472 Apr, [facility] [place] [facility] [address] [id number] [place] [address]- 1217 Apr, [facility] [place] [facility] [address] [id number] [place] [address]- 9046 Apr, [facility] [place] [facility] [address] [id number] [place] [address]- 6431 Apr, [facility] [place] [facility] [address] [id number] [place] [address]- 7602 Mar, [facility] [place] [facility] [address] [id number] [place] [address]- 9427 Mar, [facility] [place] [facility] [address] [id number] [place] [address]- 5407 Mar, [facility] [place] [facility] [address] [id number] [place] [address]- 8296 Mar, [facility] [place] [facility] [address] [id number] [place] [address]- 2007 Feb, [facility] [place] [facility] [address] [id number] [place] [address]- 2296 Feb, [facility] [place] [facility] [address] [id number] [place] [address]- 9542 Feb, [facility] [place] [facility] [address] [id number] [place] [address]- 3096 Feb, [facility] [place] [facility] [address] [id number] [place] [address]- 7103 Feb, [facility] [place] [facility] [address] [id number] [place] [address]- 8416 January, [facility] [place] [facility] [address] [id number] [place] [address]- 0603 January, [facility] [place] [facility] [address] [id number] [place] [address]- 9812 January, [facility] [place] [facility] [address] [id number] [place] [address]- 1882 January, [facility] [place] [facility] [address] [id number] [place] [address]- 3663 January, [facility] [place] [facility] [address] [id number] [place] [address]- 3400 January, [facility] [place] [facility] [address] [id number] [place] [address]- 2739 Dec, [facility] [place] [facility] [address] [id number] [place] [address]- 1721 Dec, [facility] [place] [facility] [address] [id number] [place] [address]- 7122 Dec, [facility] [place] [facility] [address] [id number] [place] 0210 Dec, [facility] [place] [facility] [address] [id number] [place] [address]- 9302 Dec, [facility] [place] [facility] [address] [id number] [place] [address]- 5085 Nov, [facility] [place] [facility] [address] [id number] [place] [address]- 1268 14 Nov, 2011 [facility] [place] [facility] [address] [id number] [place] [address]- 3157 12 Nov, 2011 [facility] [place] [facility] [address] [id number] [place] [address]- 3246 07 Nov, 2011 [facility] [place] [facility] [address] [id number] [place] [address]- 6446 29 Oct, 2011 [facility] [place] [facility] [address] [id number] [place] [address]- 1221 28 Oct, 2011 [facility] [place] [facility] [address] [id number] [place] [address]- 7758 24 Oct, 2011 [facility] [place] [facility] [address] [id number] [place] [address]- 6173 13 Oct, 2011 [facility] [place] [facility] [address] [id number] [place] [address]- 0745 08 Oct, 2011 [facility] [place] [facility] [address] [id number] [place] [address] Sep, [facility] [place] [facility] [address] [id number] [place] [address] Sep, [facility] [place] [facility] [address] [id number] [place] [address] Sep, [facility] [place] [facility] [address] [id number] [place] [address] Sep, [facility] [place] [facility] [address] [id number] [place] [address] Sep, [facility] [place] [facility] [address] [id number] [place] [address] Sep, [facility] [place] [facility] [address] [id number] [place] [address] Aug, [facility] [place] [facility] [address] [id number] [place] [address]26 Aug, [facility] [place] [facility] [address] [id number] [place] [address] Aug, [facility] [place] [facility] [address] [id number] [place] [address] Jul, [facility] [place] [facility] [address] [id number] [place] [address] Jul, [facility] [place] [facility] [address] [id number] [place] [address] Jul, [facility] [place] [facility] [address] [id number] [place] [address] Jul, [facility] [place] [facility] [address] [id number] [place] [address] Jun, [facility] [place] [facility] [address] [id number] [place] [address] Jun, [facility] [place] [facility] [address] [id number] [address] Jun, [facility] [place] [facility] [address] [id number] [place] [address] Jun, [facility] [place] [facility] [address] [id number] [place] [address] 7652 Jun, [facility] [place] [facility] [address] [id number], [place] [address] Jun, [facility] [place] [facility] [address] [id number], [place] [address] Mar, [facility] [place] [facility] [address] [id number] [place] [address] 3518 Dec, [facility] [place] [facility] [address] [id number][place] [address] Dec, [facility] [place] [facility] [address] [id number] [place] [address] 78[address] Nov, [facility] [place] [facility] [address] [id number] [place] [address] 16 Nov, 2010 [facility] [address] [id number] [place] [address] 10 Sep, 2010 [facility] [address] [id number] [place] [address] 2546 31 Aug, 2010 [facility] [address] [id number] [place] [address] 2546 29 Aug, 2010 [facility] [address] [id number] [place] [address] 2546 29 Aug, 2010 [facility] [address] [id number] [place] [address] 29 Aug, 2010 [facility] [address] [id number] [place] [address] 2546 27 Aug, 2010 [facility] [address] [id number] [place] [address] 5466 14 Aug, 2010 [facility] [address] [id number] [place] [address] 254 08 Aug, 2010 [facility] [address] [id number] [place] [address] 2546 08 Aug, 2010 [facility] [address] [facility] [id number] [place] [address] 2541 07 Aug, 2010 [facility] [address] [id number] [place] [address] 2546 06 Aug, 2010 [facility] [address] [id number] [place] [address] 2546 06 Aug, 2010 [facility] [place] [facility] [address] [id number] [place] [address] 2546 Aug, [facility] [place] [facility] [address] [id number] [place] [address] 2546 30 Jul, 2010 [facility] [address] [id number] [place] [address] 2544 Jul, [facility] [place] [facility] [address] [id number] [place] [address] 30 Jul, 2010 [facility] [place] [facility] [address] [id number] [place] [address] 5692 Jul, [facility] [place] [facility] [address] [id number] [place] [address] 0037 Jul, [facility] [place] [facility] [address] [id number] [place] [address] 63[address] Jul, [facility] [place] [facility] [address] [id number] [place] [address] 24 Jun, 2010 [facility] [place] [facility] [address] [id number] [place] [address] 1298 Jun, [facility] [place] [facility] [address] [id number] [place] [address] 0726 Jun, [facility] [place] [facility] [address] [id number] [place] [address] 0268 Jun, [facility] [place] [facility] [address] [id number] [place] [address] 2745 Apr, [facility] [place] [facility] [address] [id number] [place] [address] 7455 Mar, [facility] [place] [facility] [address] [id number] [place] [address] 0877 Feb, [facility] [place] [facility] [address] [id number], [place] [address] January, [facility] [place] [facility] [address] [id number] [place] [address] 5936 15 Dec, 2009 [facility] [place] [facility] [address] [id number] [place] [address] 3648 Nov, [facility] [place] [facility] [address] [id number] [place] [address] 270[address] Aug, [facility] [place] [facility] [address] [id number], [place] [address]369 Aug, [facility] [address] [facility] [id number], [place] [address] Aug, [facility] [address] [facility] [id number][place] [address] 3546 Jul, [facility] [address] [facility] [id number], [place] [address] 2796 Jul, [facility] [address] [facility] [id number], [place] [address] 1771 Jul, [facility] [address] [facility] [id number], [place] [address] 2845 Jun, [facility] [address] [facility] [id number][place] [address] Jun, [facility] [address] [facility] [id number], [place] [address] 8860 Jun, [facility] [address] [facility] [id number], [place] [address]- 2560 Jun, [facility] [address] [facility] [id number][place] [address]- 7181 Jun, [facility] [address] [facility] [id number], [place] [address] 8561 Jun, [facility] [address] [facility] [id number][place] [address]- 2384 Apr, [facility] [address] [facility] [id number][place] [address] 7570 Apr, [facility] [address] [facility] [id number], [place] [address]- 8428 Feb, [facility] [address] [facility] [id number][place] [address] January, [facility] [address] [facility] [id number][place] [address] Dec, IMMUNIZATIONS No Known Immunizations SOCIAL HISTORY Never Assessed REASON FOR VISIT f/u, Depression. PLAN OF CARE Activity Details Follow Up 1 Week Reason:depression VITAL SIGNS MEDICATIONS Unknown Medications RESULTS No Results PROCEDURES Procedure Date Ordered Result Body Site [facility] VISIT MENTAL HEALTH ESTAB PT Nov 14, 2017 Psychotherapy, patient &/family, 45 minutes, established patient Nov 14, 2017 INSTRUCTIONS MEDICATIONS ADMINISTERED No Known Medications MEDICAL (GENERAL) HISTORY Type Description Date Medical History type II diabetes Medical History coronary artery disease stress test 01/5015 Medical History chronic obstructive pulmonary disease (COPD) Medical History gastroesophageal reflux disease (GERD) Medical History acute renal failure Medical History erectile dysfunction Medical History hyperlipidemia Medical History obesity Medical History skin cancer-basal cell R bahai (removed) Medical History Arthritis Medical History degenerative [...] 2009 Surgical History colonoscopy 2009 ([place]), 2013 ([place]) Surgical History heart 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 04/2014 Surgical History carotid US 05/2014 Surgical History resection of skin cancer from Right bahai Surgical History Biopsy of Lung Bilateral/Left lung lymph node 09/2016 Surgical History Bone Marrow Biopsy Surgical History port in the right chest wall 12/2016 Hospitalization History [facility] low potassium, low magnesium, chest painina 01/2015 Hospitalization History inability to urinate 09/16/15 Hospitalization History [facility] inpatient [facility] early Hospitalization History hyperkalemia 10/2017 Hospitalization History fluid in lung
--- OUTSIDE RECORDS SUMMARY | 2018-08-08 14:24 | XMS REPORT ---
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 [employer] Name Role Phone NOEMI WASHBURN Unavailable PROBLEMS Type Condition ICD9-CM Code DOL87-EQ Code Onset Dates Condition Status SNOMED Code Problem Chronic lymphocytic leukemia C91.10 Active 77987088 Problem Lymphocytosis D72.820 Active 52179690 Problem Eye exam abnormal R93.8 Active 378278026 Problem Morbid obesity E66.01 Active 355192789 Problem Eustachian tube dysfunction, unspecified laterality H69.80 Active 67474476 Problem Essential hypertension I10 Active 77525250 Problem Dysuria R30.0 Active 00416593 Problem Diabetic polyneuropathy associated with type 2 diabetes mellitus E11.42 Active 58946721 Problem Bilateral primary osteoarthritis of knee M17.0 Active 235089524 Problem Polyneuropathy associated with underlying disease G63 Active 717296900 Problem Pure hypercholesterolemia E78.00 Active 133135513 Problem Bipolar disorder, in partial remission, most recent episode depressed F31.75 Active 09359066 Problem Benign prostatic hyperplasia with lower urinary tract symptoms, unspecified morphology N40.1 Active 188192627 Problem Hypokalemia E87.6 Active 56191072 Problem Cough R05 Active 55348955 Problem Anemia of chronic illness D63.8 Active 677140973 Problem Retinal edema H35.81 Active 1465767 Problem Falling R29.6 Active 900265412 Problem 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 Active 839383311 Problem Chronic pain G89.29 Active 50076332 Problem Leukocytosis D72.829 Active 063807745 Problem DM neuro manif type II E11.49 Active 02907734 Problem Diabetes E11.9 Active 50115017 Problem Insomnia, unspecified type G47.00 Active 770509377 Problem Anxiety F41.9 Active 77218602 Problem Reactive airway disease J45.909 Active 189373022540 Problem Bipolar I disorder, most recent episode (or current) mixed, moderate F31.62 Active 65665162 ALLERGIES No Information ENCOUNTERS Encounter Location Date Diagnosis [facility] [id number] [place] [address] 57594- 2033 Jun, [facility] [id number] [address] 5471 Apr, [facility] [id number] [place] [address] 21932- 4654 Apr, [facility] [id number] [place] [address] 33691- 9110 Apr, [facility] [id number] [place] [address] 15867- 3055 Mar, [facility] [id number] [place] [address] 06576- 3930 Mar, BMI 50.0-59.9, adult Z68.43 and Bipolar disorder, in partial remission, most recent episode depressed F31.75 [facility] [id number] [place] [address] 75275- 9353 Mar, Diabetes E11.9 ; Pure hypercholesterolemia E78.00 ; Essential hypertension I10 ; Nausea with vomiting, unspecified R11.2 and Headache, unspecified headache type R51 [facility] [id number] [place] [address] 48010- 6531 Mar, Bipolar I disorder, most recent episode (or current) mixed, moderate F31.62 [facility] [address] [place] [address] 27867- 8770 Mar, Bipolar I disorder, most recent episode (or current) mixed, moderate F31.62 [facility] [id number] [place] [address] 06966- 3109 Mar, Chronic pain G89.29 [facility] [id number] [place] [address] 41649- 4887 Mar, Bipolar I disorder, most recent episode (or current) mixed, moderate F31.62 [facility] [address] [address] 0829 18 Feb, 2018 Bipolar I disorder, most recent episode (or current) mixed, moderate F31.62 [facility] [id number] [place] [address] 03046- 1500 14 Feb, 2018 Chronic pain G89.29 [facility] [id number] [place] [address] 10449- 0123 06 Feb, 2018 Decubitus ulcer of right foot, stage 3 L89.893 and BMI 50.0- 59.9, adult Z68.43 [facility] [id number] [place] [address] 73360- 7446 Feb, Bipolar I disorder, most recent episode (or current) mixed, moderate F31.62 [facility] [id number] [place] [address] 75235- 7333 Feb, [facility] [id number] [place] [address] 83039- 6542 January, [facility] [id number] [place] [address] 86421- 9365 January, Chronic pain G89.29 [facility] [id number] [place] [address] 46027- 6690 January, Bipolar I disorder, most recent episode (or current) mixed, moderate F31.62 [facility] [address] [place] [address] 40271- 4116 January, Bipolar I disorder, most recent episode (or current) mixed, moderate F31.62 [facility] [id number] [place] [address] 72542- 1491 Dec, Bipolar I disorder, most recent episode (or current) mixed, moderate F31.62 and BMI 50.0-59.9, adult Z68.43 [facility] [id number] [place] [address] 14817- 8569 Dec, Bipolar I disorder, most recent episode (or current) mixed, moderate F31.62 [facility] [id number] [place] [address] 50866- 8482 Dec, Chronic pain G89.29 [facility] [id number] [place] [address] 35808- 7972 Dec, DM neuro manif type II E11.49 ; Right flank pain R10.9 ; 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 ; Encounter for medication monitoring Z51.81 and BMI 50.0-59.9, adult Z68.43 [facility] [id number] [place] [address] 41623- 4809 Dec, Bipolar I disorder, most recent episode (or current) mixed, moderate F31.62 [facility] [id number] [place] [address] 27184- 6523 Nov, Bipolar I disorder, most recent episode (or current) mixed, moderate F31.62 [facility] [id number] [place] [address] 10579- 5233 Nov, Chronic pain G89.29 [facility] [id number] [place] [address] 38814- 8833 Nov, Bipolar I disorder, most recent episode (or current) mixed, moderate F31.62 [facility] [id number] [place] [address] 99414- 8329 Nov, Hypokalemia E87.6 [facility] [id number] [place] [address] 60684- 8106 Nov, Bipolar I disorder, most recent episode (or current) mixed, moderate F31.62 [facility] [id number] [place] [address] 61425- 7862 Oct, Chronic pain G89.29 [facility] [id number] [place] [address] 70870- 9591 Oct, BMI 50.0-59.9, adult Z68.43 and Bipolar I disorder, most recent episode (or current) mixed, moderate F31.62 [facility] [id number] [place] [address] 49530- 6416 Oct, Bipolar I disorder, most recent episode (or current) mixed, moderate F31.62 [facility] [id number] [place] [address] 90062- 8380 Oct, [facility] [address] 88113- 9304 Oct, Hypokalemia E87.6 [facility] [address] 18289- 3198 Oct, DM neuro manif type II E11.49 [facility] [address] 53299- 9889 Oct, Bipolar I disorder, most recent episode (or current) mixed, moderate F31.62 [facility] [id number] [place] [address] 54540- 4245 Oct, Bipolar I disorder, most recent episode (or current) mixed, moderate F31.62 [facility] [id number] [place] [address] 79062- 6527 14 Oct, 2017 Hyperkalemia E87.5 ; Falling R29.6 ; BMI 50.0-59.9, adult Z68.43 and Acute left ankle pain M25.572 [facility] [id number] [place] [address] 18234- 3680 Oct, DM neuro manif type II E11.49 [facility] [address] 56590- 4700 Oct, [facility] [id number] [place] [address] 14720- 0057 Sep, Chronic pain G89.29 [facility] [address] 86560- 0453 Sep, [facility] [id number] [place] [address] 59797- 9175 Sep, Bilateral primary osteoarthritis of knee M17.0 [facility] [id number] [place] [address] 05665- 0377 Sep, Generalized edema R60.1 [facility] [id number] [place] [address] 54251- 0666 Sep, Bipolar I disorder, most recent episode (or current) mixed, moderate F31.62 [facility] [id number] [place] [address] 36290- 3444 15 Sep, 2017 Hypoxia R09.02 ; Other hypervolemia E87.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 ; Anemia of chronic illness D63.8 and BMI 50.0- 59.9, adult Z68.43 [facility] [id number] [place] [address] 65773- 9522 Sep, [facility] [id number] [place] [address] 78541- 2195 Sep, Bipolar I disorder, most recent episode (or current) mixed, moderate F31.62 [facility] [id number] [place] [address] 04014- 8552 Aug, Chronic pain G89.29 [facility] [id number] [place] [address] 89856- 3357 Aug, Generalized edema R60.1 [facility] [id number] [place] [address] 82640- 0637 Aug, [facility] [id number] [place] [address] 11275- 7454 Aug, [facility] [id number] [place] [address] 64786- 6082 Aug, Bipolar I disorder, most recent episode (or current) mixed, moderate F31.62 [facility] [id number] [place] [address] 40931- 9830 Aug, Bipolar I disorder, most recent episode (or current) mixed, moderate F31.62 [facility] [id number] [place] [address] 32728- 5045 Aug, Chronic pain G89.29 [facility] [id number] [place] [address] 846632- 5753 Jul, Bipolar I disorder, most recent episode (or current) mixed, moderate F31.62 [facility] [address] 08621- 0105 Jul, Bipolar I disorder, most recent episode (or current) mixed, moderate F31.62 and BMI 60.0-69.9, adult Z68.44 [facility] [address] 48413- 8561 Jul, Bipolar I disorder, most recent episode (or current) mixed, moderate F31.62 [facility] [id number] [place] [address] 72323- 7028 Jul, Chronic pain G89.29 [facility] [id number] [place] [address] 56941- 4974 Jul, Bipolar I disorder, most recent episode (or current) mixed, moderate F31.62 [facility] [id number] [place] [address] 56668- 1064 Jun, Polyneuropathy associated with underlying disease G63 and Diabetes E11.9 [facility] [address] 73733- 6869 16 Jun, 2017 Bipolar I disorder, most recent episode (or current) mixed, moderate F31.62 [facility] [id number] [place] [address] 16948- 8344 Jun, Chronic pain G89.29 [facility] [address], [place] [address]- 3194 27 May, 2017 Bipolar I disorder, most recent episode (or current) mixed, moderate F31.62 [facility] [id number] [place] [address] 93176- 5412 21 May, 2017 Bipolar I disorder, most recent episode (or current) mixed, moderate F31.62 [facility] [id number] [place] [address] 93201- 1736 20 May, 2017 Diabetic polyneuropathy associated with type 2 diabetes mellitus E11.42 [facility] [address] [place] [address] 77691- 6129 18 May, 2017 Bipolar I disorder, most recent episode (or current) mixed, moderate F31.62 [facility] [id number] [place] [address] 48451- 5203 13 May, 2017 Bipolar I disorder, most recent episode (or current) mixed, moderate F31.62 [facility] [address] [place] [address] 15506- 8297 May, Chronic pain G89.29 [facility] [id number] [place] [address] 13801- 8347 Apr, Bipolar I disorder, most recent episode (or current) mixed, moderate F31.62 [facility] [address] [place] [address] 81894- 1897 Apr, [facility] [id number] [place] [address] 94175- 2532 Apr, Chronic pain G89.29 and DM neuro manif type II E11.49 [facility] [id number] [place] [address] 04896- 4139 Apr, [facility] [id number] [place] [address] 90734- 9434 Apr, Bipolar I disorder, most recent episode (or current) mixed, moderate F31.62 [facility] [address] [address]- 5503 Apr, Chronic pain G89.29 [facility] [id number] [place] [address] 35181- 2388 Apr, Iliotibial band syndrome, left M76.32 [facility] [id number] [place] [address] 70677- 8739 Apr, Bipolar I disorder, most recent episode (or current) mixed, moderate F31.62 [facility] [id number] [place] [address] 68474- 2998 Mar, Bipolar I disorder, most recent episode (or current) mixed, moderate F31.62 [facility] [id number] [place] [address] 25533- 0802 Mar, Bipolar I disorder, most recent episode (or current) mixed, moderate F31.62 [facility] [id number] [place] [address] 90905- 9246 Mar, [facility] [id number] [place] [address] 47931- 1541 Mar, Bipolar I disorder, most recent episode (or current) mixed, moderate F31.62 [facility] [address] [place] [address] 77999- 6771 Mar, Chronic pain G89.29 [facility] [address] [place] [address] 64389- 0215 Mar, Bipolar I disorder, most recent episode (or current) mixed, moderate F31.62 [facility] [address], [place] [address]- 6471 Mar, Bipolar I disorder, most recent episode (or current) mixed, moderate F31.62 [facility] [address] [place] [address] 28354- 8563 Mar, Acute pain of left knee M25.562 ; Left hip pain M25.552 ; Generalized edema R60.1 and Tongue swelling R22.0 [facility] [id number] [place] [address] 85103- 6684 Mar, [facility] [id number] [place] [address] 27582- 9366 Feb, Chronic pain G89.29 [facility] [id number] [place] [address] 52577- 7992 Feb, Diabetes E11.9 [facility] [id number] [place] [address] 06182- 0947 January, Chronic pain G89.29 [facility] [id number] [place] [address] 48800- 8412 January, [facility] [id number] [place] [address] 53647- 5137 January, Bipolar I disorder, most recent episode (or current) mixed, moderate F31.62 [facility] [id number] [place] [address] 51032- 4163 Dec, Bipolar I disorder, most recent episode (or current) mixed, moderate F31.62 [facility] [id number] [place] [address] 68587- 9798 Dec, Chronic pain G89.29 [facility] [id number] [place] [address] 71449- 6980 Dec, Bipolar I disorder, most recent episode (or current) mixed, moderate F31.62 [facility] [address] [place] [address] 04526- 8856 Dec, Diabetes E11.9 ; Essential hypertension I10 ; Chronic pain G89.29 and Morbid obesity E66.01 [facility] [id number] [place] [address] 07352- 3812 Dec, [facility] [id number] [place] [address] 57304- 2233 Dec, Bipolar I disorder, most recent episode (or current) mixed, moderate F31.62 [facility] [address], [place] [address]- 0036 Dec, Bipolar I disorder, most recent episode (or current) mixed, moderate F31.62 [facility] [address], [place] [address]- 8206 Nov, Chronic pain G89.29 [facility] [id number] [place] [address] 28513 2546 Nov, Bipolar I disorder, most recent episode (or current) mixed, moderate F31.62 [facility] [id number] [place] [address] 02327- 9266 Nov, [facility] [id number] [place] [address] 94586- 6656 Nov, Bipolar I disorder, most recent episode (or current) mixed, moderate F31.62 [facility] [address] [place] [address] 71296- 3684 Nov, Bipolar I disorder, most recent episode (or current) mixed, moderate F31.62 [facility] [address] [place] [address] 73605- 7996 Nov, [facility] [address] [place] [address] 75957- 3626 Nov, [facility] [address] [place] [address] 52875- 0876 Nov, [facility] [address] [place] [address] 32083 2546 Oct, Chronic pain G89.29 [facility] [id number] [place] [address] 54211- 8456 Oct, Bipolar I disorder, most recent episode (or current) mixed, moderate F31.62 [facility] [address] [address]- 3356 Oct, [facility] [id number] [place] [address] 23638- 7108 15 Oct, 2016 Chronic pain G89.29 ; Diabetes E11.9 ; Anxiety F41.9 and 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 [facility] [id number] [place] [address] 09346- 7386 10 Oct, 2016 [facility] [id number] [place] [address] 81007- 6556 06 Oct, 2016 Diabetes E11.9 [facility] [id number] [place] [address] 79709- 1114 Oct, Bipolar I disorder, most recent episode (or current) mixed, moderate F31.62 [facility] [id number] [place] [address] 96484- 5302 Sep, Chronic pain G89.29 [facility] [id number] [place] [address] 42882- 5132 Sep, Chronic pain G89.29 [facility] [id number] [place] [address] 54508- 0363 Aug, Chronic pain G89.29 [facility] [id number] [place] [address] 43926- 7318 Jul, [facility] [id number] [place] [address] 76354- 8734 Jul, Diabetes E11.9 [facility] [id number] [place] [address] 17847- 4855 Jul, Chronic pain G89.29 [facility] [id number] [place] [address] 77061- 3533 Jul, Bipolar I disorder, most recent episode (or current) mixed, moderate F31.62 [facility] [address] [place] [address] 20489- 3016 Jun, Bipolar I disorder, most recent episode (or current) mixed, moderate F31.62 [facility] [address] [place] [address] 93263- 7871 Jun, [facility] [id number] [place] [address] 96337- 9109 Jun, Bipolar I disorder, most recent episode (or current) mixed, moderate F31.62 [facility] [id number] [place] [address] 87025- 6020 30 May, 2016 Insomnia, unspecified type G47.00 [facility] [id number] [place] [address] 45214- 6060 May, Bipolar I disorder, most recent episode (or current) mixed, moderate F31.62 [facility] [id number] [place] [address] 02592- 7807 May, [facility] [id number] [place] [address] 85560- 4020 May, Bipolar I disorder, most recent episode (or current) mixed, moderate F31.62 [facility] [id number] [place] [address] 89720- 2075 May, Diabetes E11.9 and Essential hypertension I10 [facility] [id number] [place] [address] 71980- 8550 Apr, Chronic pain G89.29 [facility] [id number] [place] [address] 71834- 0175 Apr, Bipolar I disorder, most recent episode (or current) mixed, moderate F31.62 [facility] [id number] [place] [address] 12375- 3444 Apr, [facility] [id number] [place] [address] 43154- 0609 Apr, [facility] [id number] [place] [address] 54154- 5004 Mar, Chronic pain G89.29 ; Headache, unspecified headache type R51 ; Neuropathy G62.9 ; Pain of right hip joint M25.551 and Essential hypertension I10 [facility] [id number] [place] [address] 02061- 0488 Mar, Chronic pain G89.29 [facility] [id number] [place] [address] 67138- 6134 Mar, Bipolar I disorder, most recent episode (or current) mixed, moderate F31.62 [facility] [id number] [place] [address] [phone] Feb, Bipolar I disorder, most recent episode (or current) mixed, moderate F31.62 and Insomnia, unspecified type G47.00 [facility] [id number] [place] [address] [phone] Feb, Chronic pain G89.29 [facility] [id number] [place] [address] [phone] Feb, Bipolar I disorder, most recent episode (or current) mixed, moderate F31.62 [facility] [id number] [place] [address] [phone] January, Bipolar I disorder, most recent episode (or current) mixed, moderate F31.62 [facility] [id number] [place] [address] [phone]- [phone] January, Chronic pain G89.29 [facility] [id number] [place] [address] [phone]- [phone] January, Chronic pain G89.29 and Essential hypertension I10 [facility] [id number] [place] [address] [phone] January, Bipolar I disorder, most recent episode (or current) mixed, moderate F31.62 [facility] [id number] [place] [address] [phone] Dec, [facility] [id number] [place] [address] [phone] Dec, [facility] [id number] [place] [address] [phone] Dec, [facility] [id number] [place] [address] [phone] Dec, [facility] [address] [id number] [place] [address] 64222- 4288 Nov, Reactive airway disease J45.909 [facility] [address] 68755- 3572 Nov, [facility] [address] 70526- 5931 Nov, [facility] [address] 69504- 7131 Nov, [facility] [address] 67781- 2908 Nov, [facility] [id number] [place] [address] 04672- 7399 Nov, Onychomycosis B35.1 ; Hammertoe M20.40 ; [place] or callus L84 and DM neuro manif type II E11.49 [facility] [id number] [place] [address] 33151- 7949 Nov, Chronic pain G89.29 ; Leukocytosis D72.829 and Diabetes E11.9 [facility] [id number] [place] [address] 91170- 9656 Nov, [facility] [id number] [place] [address] 88737- 0793 Oct, Bronchitis J40 [facility] [id number] [place] [address] 21660- 6010 Oct, [facility] [id number] [place] [address] 99425- 0638 Oct, [facility] [address] 19601- 5045 Oct, Mastoiditis, unspecified laterality H70.90 and Type 2 diabetes mellitus with complication E11.8 [facility] [id number] [place] [address] 12970- 6835 Sep, [facility] [id number] [place] [address] 40003- 3737 Sep, Dysuria R30.0 ; Cough R05 ; Benign prostatic hyperplasia with lower urinary tract symptoms, unspecified morphology N40.1 ; Hypokalemia E87.6 and Eustachian tube dysfunction, unspecified laterality H69.80 [facility] [address] 05153- 3743 Sep, Moderate mixed bipolar I disorder F31.62 [place] [address] 26028- 1383 Sep, Hypokalemia E87.6 [place] [address] 84757- 3719 Sep, [facility] [address] 39386- 3630 Sep, Upper respiratory tract infection, unspecified type J06.9 [facility] [id number] [place] [address] 69875- 7859 Aug, [facility] [id number] [place] [address] 68066- 3817 Aug, Dysuria R30.0 [facility] [id number] [place] [address] 86609- 5543 Aug, [facility] [address] 23960- 6872 Jul, [facility] [id number] [place] [address] 86580- 7325 Jul, [facility] [id number] [place] [address] 52950- 5154 Jul, [facility] [address] [address]- 3418 Jul, [facility] [id number] [place] [address] 12472- 3261 Jun, [facility] [address] [address]- 4175 Jun, [facility] [id number] [place] [address] 46665- 7375 Jun, [facility] [id number] [place] [address] 89923- 8252 May, [facility] [id number] [place] [address] 46819- 3872 May, Bipolar I disorder, most recent episode (or current) mixed, moderate 296.62 [facility] [id number] [place] [address] 81939- 4191 May, [facility] [id number] [place] [address] 33664- 4088 May, Bipolar I disorder, most recent episode (or current) mixed, moderate 296.62 and Major depressive disorder, recurrent episode, severe, specified as with psychotic behavior 296.34 [facility] [address], [place] [address]- 0750 May, Bipolar I disorder, most recent episode (or current) mixed, moderate 296.62 [facility] [address], [place] [address]- 9669 May, [facility] [address] [address]- 5013 Apr, [facility] [id number] [place] [address] 63094- 5001 Apr, [facility] [address], [place] [address]- 8981 Apr, Unspecified disorder of kidney and ureter 593.9 and Diabetes mellitus type 2, uncontrolled 250.02 [facility] [address], [place] [address]- 0448 Apr, [facility] [id number] [place] [address] 24830- 3029 Apr, [facility] [id number] [place] [address] 83897- 1545 Apr, [facility] [id number] [place] [address] 01772- 9296 Apr, [facility] [id number] [place] [address] 75027- 0889 Apr, Diabetes mellitus type II, uncontrolled 250.02 [facility] [id number] [place] [address] 07081- 7964 Apr, [facility] [id number] [place] [address] 53863- 4902 Mar, [facility] [id number] [place] [address] 66965- 0350 Mar, [facility] [id number] [place] [address] 20205- 3774 Mar, [facility] [address], [place] [address]- 9252 Mar, Major depressive disorder, recurrent episode, severe, specified as with psychotic behavior 296.34 and Bipolar I disorder, most recent episode (or current) mixed, moderate 296.62 [facility] [id number] [place] [address] 92567- 7588 Mar, Diabetes 250.00 ; Anuria 788.5 ; Nausea and vomiting 787.01 and Diarrhea 787.91 [facility] [id number] [place] [address] 09091- 2490 Mar, Diabetes 250.00 [facility] [id number] [place] [address] 23961- 1581 Mar, [facility] [address] [address]- 9820 Mar, Diabetes 250.00 [facility] [id number] [place] [address] 19202- 4476 Mar, [facility] [id number] [place] [address] 60351- 5659 Mar, [facility] [id number] [place] [address] 06131- 9997 Mar, [facility] [id number] [place] [address] 09896- 6350 Mar, [facility] [id number] [place] [address] 70627- 1504 Mar, Bipolar I disorder, most recent episode (or current) mixed, moderate 296.62 and Major depressive disorder, recurrent episode, severe, specified as with psychotic behavior 296.34 [facility] [address] [place] [id number] [place] [address] 29975- 1908 Mar, Magnesium deficiency 275.2 ; Hypokalemia 276.8 ; Nausea & vomiting 787.01 and Diabetes mellitus type 2, uncontrolled 250.02 [facility] [id number] [place] [address] 90062- 8877 Feb, [facility] [address] [place] [id number] [place] [address] 49268- 5123 Feb, Bipolar I disorder, most recent episode (or current) mixed, moderate 296.62 [facility] [id number] [place] [address] 83703- 2262 Feb, Nausea and vomiting 787.01 ; Left elbow pain 719.42 ; Anuria 788.5 and Diabetes 250.00 [facility] [id number] [place] [address] 29878- 1342 Feb, [facility] [id number] [place] [address] 18121- 9627 Feb, Hypopotassemia 276.8 and Hypokalemia 276.8 [facility] [address], [place] [address]- 1697 Feb, Hypopotassemia 276.8 and Hypokalemia 276.8 [facility] [address], [place] [address]- 1230 Feb, Seborrheic keratoses 702.19 [facility] [id number] [place] [address] 44058- 9470 Feb, Hypopotassemia 276.8 and Low magnesium levels 275.2 [facility] [id number] [place] [address] 03523- 9823 January, [facility] [id number] [place] [address] 99518- 8159 January, [facility] [id number] [place] [address] 01266- 7759 January, [facility] [id number] [place] [address] 94409- 3372 January, Scalp lesion 709.9 [facility] [id number] [place] [address] 41881- 6262 January, [facility] [id number] [place] [address] 42833- 6277 Dec, Tear of medial cartilage or meniscus of knee, current 836.0 and 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 [facility] [address], [place] [address]- 9267 Dec, [facility] [id number] [place] [address] 82525- 8404 Dec, [facility] [id number] [place] [address] 10816- 6014 Dec, Squamous cell carcinoma, 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 [facility] [id number] [place] [address] 40891- 3156 14 Dec, 2014 [facility] [place] [facility] [address] [id number] [place] [address]- 7633 Dec, [facility] [place] [facility] [address] [id number] [place] [address]- 3085 Nov, [facility] [place] [facility] [address] [id number] [place] [address]- 6921 Nov, [facility] [place] [facility] [address] [id number] [place] [address]- 3925 Nov, [facility] [place] [facility] [address] [id number] [place] [address]- 1514 Nov, [facility] [place] [facility] [address] [id number] [place] [address]- 5653 Nov, [facility] [place] [facility] [address] [id number] [place] [address]- 3327 Nov, [facility] [place] [facility] [address] [id number] [place] [address]- 0126 Nov, [facility] [place] [facility] [address] [id number] [place] [address]- 8158 Nov, [facility] [place] [facility] [address] [id number] [place] [address]- 2787 Nov, [facility] [place] [facility] [address] [id number] [place] [address]- 2422 Nov, [facility] [place] [facility] [address] [id number] [address]- 6749 Nov, [facility] [place] [facility] [address] [id number] [place] [address]- 4352 Nov, [facility] [place] [facility] [address] [id number] [place] [address]- 0587 Oct, [facility] [place] [facility] [address] [id number] [place] 2712 Oct, [facility] [place] [facility] [address] [id number] [place] [address]- 6578 Oct, 2014 [facility] [place] [facility] [address] [id number] [place] [address]- 5836 Oct, 2014 [facility] [place] [facility] [address] [id number] [place] [address]- 5636 Oct, 2014 [facility] [place] [facility] [address] [id number] [place] [address]- 5436 Oct, 2014 [facility] [place] [facility] [address] [id number] [place] [address]- 8694 Oct, 2014 [facility] [place] [facility] [address] [id number] [place] [address]- 6714 Oct, 2014 [facility] [place] [facility] [address] [id number] [place] [address]- 6500 Oct, 2014 [facility] [place] [facility] [address] [facility] [id number] [place] [address]- 2445 Sep, [facility] [place] [facility] [address] [id number] [place] [address]- 9740 Sep, [facility] [place] [facility] [address] [facility] [id number] [place] [address]- 3285 Sep, [facility] [place] [facility] [address] [facility] [id number] [place] [address]- 5100 Sep, [facility] [place] [facility] [address] [id number] [place] [address]- 5251 Sep, [facility] [place] [facility] [address] [id number], [place] [address]- 0938 Sep, [facility] [place] [facility] [address] [id number] [place] [address]- 4270 Sep, [facility] [place] [facility] [address] [id number] [place] [address]- 5597 Sep, [facility] [place] [facility] [address] [id number] [place] [address]- 2207 Sep, [facility] [place] [facility] [address] [id number] [place] [address]- 5807 14 Sep, 2014 [facility] [place] [facility] [address] [id number] [place] [address]- 8548 Sep, [facility] [place] [facility] [address] [id number] [place] [address]- 9533 Sep, [facility] [place] [facility] [address] [id number] [place] [address]- 5753 Sep, [facility] [place] [facility] [address] [id number] [place] [address]- 1152 Sep, [facility] [place] [facility] [address] [id number] [place] [address]- 3016 Sep, [facility] [place] [facility] [address] [id number] [place] [address]- 3327 Sep, [facility] [place] [facility] [address] [id number] [place] [address]- 2239 Aug, [facility] [place] [facility] [address] [id number] [place] [address]- 2671 31 Aug, 2014 [facility] [place] [facility] [address] [id number] [place] [address]- 2022 31 Aug, 2014 [facility] [place] [facility] [address] [id number] [place] [address]- 8822 31 Aug, 2014 [facility] [place] [facility] [address] [id number] [place] [address]- 7892 31 Aug, 2014 [facility] [place] [facility] [address] [id number] [place] [address]- 9303 31 Aug, 2014 [facility] [place] [facility] [address] [id number] [place] [address]- 7001 17 Aug, 2014 [facility] [place] [facility] [address] [id number] [place] [address]- 2283 17 Aug, 2014 [facility] [place] [facility] [address] [id number] [place] [address]- 5161 Aug, [facility] [address] [id number] [place] [address]- 7292 Aug, [facility] [address] [id number] [place] [address]- 6707 Aug, [facility] [address] [place] [id number] Aug, [facility] [address] [id number] [place] [address]- 4207 Aug, [facility] [address] [id number] [place] [address]- 7704 Aug, [facility] [address] [id number] [place] [address]- 4012 Aug, [facility] [address] [id number] [place] [address]- 0098 Aug, [facility] [place] [facility] [address] [id number] [place] [address]- 3614 Aug, [facility] [place] [facility] [address] [id number] [place] [address]- 0315 Aug, [facility] [place] [facility] [address] [id number] [place] [address]- 9800 Aug, [facility] [place] [facility] [address] [id number] [place] [address]- 4134 Aug, [facility] [place] [facility] [address] [id number] [place] [address]- 4283 Aug, [facility] [place] [facility] [address] [id number] [place] [address]- 7238 Aug, [facility] [place] [facility] [address] [id number] [place] [address]- 3810 Aug, [facility] [place] [facility] [address] [id number] [place] [address]- 5718 Aug, [facility] [place] [facility] [address] [id number] [place] [address]- 4568 Aug, [facility] [place] [facility] [address] [id number] [place] [address]- 8366 Aug, [facility] [place] [facility] [address] [id number] [place] [address]- 0605 Aug, [facility] [place] [facility] [address] [id number] [place] [address]- 7883 Aug, [facility] [place] [facility] [address] [id number] [place] [address]- 6057 Aug, [facility] [place] [facility] [address] [id number] [place] [address]- 6880 Aug, [facility] [place] [facility] [address] [id number] [place] [address]- 6678 Jul, [facility] [place] [facility] [address] [id number] [place] [address]- 5115 Jul, [facility] [place] [facility] [address] [id number] [place] [address]- 1745 Jul, [facility] [place] [facility] [address] [id number] [place] [address]- 4751 Jul, [facility] [place] [facility] [address] [id number] [place] [address]- 7567 Jul, [facility] [place] [facility] [address] [id number] [place] [address]- 1378 Jul, [facility] [place] [facility] [address] [id number] [place] [address]- 9961 Jul, [facility] [place] [facility] [address] [id number] [place] [address]- 5235 Jul, [facility] [place] [facility] [address] [id number] [place] [address]- 6552 Jul, [facility] [place] [facility] [address] [id number] [place] [address]- 4814 Jul, [facility] [place] [facility] [address] [id number] [place] [address]- 7676 Jun, [facility] [place] [facility] [address] [id number] [place] [address]- 8058 Jun, [facility] [place] [facility] [address] [id number] [place] 1221 Jun, [facility] [place] [facility] [address] [id number] [place] [address]- 6183 Jun, [facility] [place] [facility] [address] [id number] [place] [address]- 7107 Jun, [facility] [place] [facility] [address] [id number] [place] [address]- 3824 Jun, [facility] [place] [facility] [address] [id number] [place] [address]- 5012 Jun, [facility] [place] [facility] [address] [id number] [place] [address]- 5247 Jun, [facility] [place] [facility] [address] [id number] [place] [address]- 0064 Jun, [facility] [place] [facility] [address] [id number] [place] [address]- 9040 Jun, [facility] [place] [facility] [address] [id number] [place] [address]- 8205 29 May, 2014 [facility] [place] [facility] [address] [id number], [place] [address]- 1194 29 May, 2013 [facility] [place] [facility] [address] [id number] [place] [address]- 5544 26 May, 2014 [facility] [place] [facility] [address] [id number] [place] [address]- 6996 26 May, 2013 [facility] [place] [facility] [address] [id number] 6812 17 May, 2013 [facility] [place] [facility] [address] [id number], [place] [address]- 1554 17 May, 2013 [facility] [place] [facility] [address] [id number] [place] [address] 2546 15 May, 2013 [facility] [place] [facility] [address] [id number] [place] [address] 2546 15 May, 2013 [facility] [place] [facility] [address] [id number] [place] [address]- 0356 15 May, 2013 [facility] [place] [facility] [address] [id number] [place] [address] 2542 15 May, 2013 [facility] [place] [facility] [address] [id number] [place] [address]- 5994 10 May, 2013 [facility] [place] [facility] [address] [id number] [place] [address]- 7957 10 May, 2013 [facility] [place] [facility] [address] [id number] [place] [address]- 9590 09 May, 2013 [facility] [place] [facility] [address] [id number] [place] [address]- 2066 09 May, 2013 [facility] [place] [facility] [address] [id number] [place] [address]- 2858 04 May, 2014 [facility] [place] [facility] [address] [id number] [place] [address] May, [facility] [place] [facility] [address] [id number] [place] [address] Apr, [facility] [place] [facility] [address] [id number] [place] [address] Apr, [facility] [place] [facility] [address] [id number] [place] [address] Apr, [facility] [place] [facility] [address] [id number] [place] [address] Apr, [facility] [place] [facility] [address] [id number] [place] [address] Apr, [facility] [place] [facility] [address] [id number] [place] [address] Apr, [facility] [place] [facility] [address] [id number] [place] [address] Apr, [facility] [place] [facility] [address] [id number] [place] [address] Apr, [facility] [place] [facility] [address] [id number] [place] [address] Apr, [facility] [place] [facility] [address] [id number] [place] [address] Apr, [facility] [place] [facility] [address] [id number] [place] [address] Apr, [facility] [place] [facility] [address] [id number] [place] [address] Apr, [facility] [place] [facility] [address] [id number] [place] [address] 94[address] Apr, [facility] [place] [facility] [address] [id number] [place] [address] Apr, [facility] [place] [facility] [address] [id number] [place] [address] Apr, [facility] [place] [facility] [address] [id number] [place] [address] Mar, [facility] [place] [facility] [address] [id number] [place] [address] Mar, [facility] [place] [facility] [address] [id number] [place] [address] Mar, [facility] [place] [facility] [address] [id number] [place] [address] Mar, [facility] [place] [facility] [address] [id number] [place] [address] Mar, [facility] [place] [facility] [address] [id number] [place] [address] Mar, [facility] [place] [facility] [address] [id number] [place] [address] Mar, 2013 [facility] [place] [facility] [address] [id number] [place] [address] Mar, 2013 [facility] [place] [facility] [address] [id number] [place] [address]- [address] Mar, 2013 [facility] [place] [facility] [address] [id number] [place] [address]- [address] Mar, 2013 [facility] [place] [facility] [address] [id number] [place] [address]- [address] Mar, 2013 [facility] [place] [facility] [address] [id number] [place] [address]- [address] Mar, 2013 [facility] [place] [facility] [address] [id number] [place] [address]- [address] Mar, 2013 [facility] [place] [facility] [address] [id number] [place] [address] Mar, 2013 [facility] [place] [facility] [address] [id number] [place] [address]- [address] Mar, 2013 [facility] [place] [facility] [address] [id number] [place] [address]- [address] Mar, 2013 [facility] [place] [facility] [address] [id number] [place] [address]- 94[address] Mar, 2013 [facility] [place] [facility] [address] [id number] [place] [address] Mar, [facility] [place] [facility] [address] [id number] [place] [address] Feb, [facility] [place] [facility] [address] [id number] [place] [address]- [address] Feb, [facility] [place] [facility] [address] [id number] [place] [address] Feb, [facility] [place] [facility] [address] [id number] [place] [address] 16 Feb, 2014 [facility] [place] [facility] [address] [id number] [place] [address] Feb, [facility] [place] [facility] [address] [id number] [place] [address] Feb, [facility] [place] [facility] [address] [id number] [place] [address]- [address] Feb, [facility] [place] [facility] [address] [id number] [place] [address]- [address] Feb, [facility] [place] [facility] [address] [id number] [place] [address] Feb, [facility] [place] [facility] [address] [id number] [place] [address]- [address] Feb, [facility] [place] [facility] [address] [id number] [place] [address]- [address] Feb, [facility] [place] [facility] [address] [id number] [place] [address]- 67[address] Feb, [facility] [place] [facility] [address] [id number] [place] [address]- 6[address] Feb, [facility] [place] [facility] [address] [id number] [place] [address]- 4267 Feb, [facility] [place] [facility] [address] [id number] [place] [address]- [address]841 January, [facility] [place] [facility] [address] [id number] [place] [address]- [address] January, [facility] [place] [facility] [address] [id number] [place] [address]- [address]757 January, [facility] [place] [facility] [address] [id number] [place] [address]- 40[address] January, [facility] [place] [facility] [address] [id number] [place] [address]- [address] January, [facility] [place] [facility] [address] [id number] [place] [address]- 9[address] January, [facility] [place] [facility] [address] [id number] [place] [address] January, [facility] [place] [facility] [address] [id number] [place] [place] [address] January, [facility] [place] [facility] [address] [id number] [place] [address] 47[address] January, [facility] [place] [facility] [address] [id number] [place] [address] January, [facility] [place] [facility] [address] [id number] [place] [address] January, [facility] [place] [facility] [address] [id number] [place] [address] 8[address] January, [facility] [place] [facility] [address] [id number] [place] [address] 8978 January, [facility] [place] [facility] [address] [id number] [place] [address]- 3725 January, [facility] [place] [facility] [address] [id number] [place] [address]- 7123 Dec, [facility] [place] [facility] [address] [id number] [place] [address]- 2249 Dec, [facility] [place] [facility] [address] [id number] [place] [address]- 8582 Dec, [facility] [place] [facility] [address] [id number] [place] [address] Dec, [facility] [place] [facility] [address] [id number] [place] [address]- 4635 Dec, [facility] [place] [facility] [address] [id number] [place] [address]- 1170 Dec, [facility] [place] [facility] [address] [id number] [place] [address]- 9014 Dec, [facility] [place] [facility] [address] [id number] [place] [address]- 3511 Dec, [facility] [place] [facility] [address] [id number] [place] [address]- 3154 Dec, [facility] [place] [facility] [address] [id number] [place] [address]- 5347 Dec, [facility] [place] [facility] [address] [id number] [place] [address]- 0814 Nov, [facility] [place] [facility] [address] [id number] [place] [address]- 3817 Nov, [facility] [place] [facility] [address] [id number] [place] [address]- 0134 Nov, [facility] [place] [facility] [address] [id number] [place] [address]- 8545 Nov, [facility] [place] [facility] [address] [id number] [place] [address]- 9846 Nov, [facility] [place] [facility] [address] [id number] [place] [address]- 9089 Nov, [facility] [place] [facility] [address] [id number] [place] [address]- 2236 Nov, [facility] [place] [facility] [address] [id number] [place] [address]- 5526 Nov, [facility] [place] [facility] [address] [id number] [place] [address]- 3731 Nov, [facility] [place] [facility] [address] [id number] [place] [address]- 3491 Nov, [facility] [place] [facility] [address] [id number] [place] [address]- 4558 Oct, [facility] [place] [facility] [address] [id number] [place] [address]- 2287 Oct, [facility] [place] [facility] [address] [id number] [place] [address]- 3776 Oct, [facility] [place] [facility] [address] [id number] [place] [address]- 0466 Oct, [facility] [place] [facility] [address] [id number] [place] [address]- 0406 Oct, [facility] [place] [facility] [address] [id number] [place] [address]- 8936 Oct, [facility] [place] [facility] [address] [id number] [place] [address]- 2545 Oct, [facility] [place] [facility] [address] [id number] [place] [address]- 3226 Oct, [facility] [place] [facility] [address] [facility] [id number] [place] [address]- 1101 Oct, [facility] [place] [facility] [address] [id number] [place] [address]- 1011 Oct, [facility] [place] [facility] [address] [facility] [id number] [place] [address]- 8449 Oct, [facility] [place] [facility] [address] [facility] [id number] [place] [address]- 2930 Oct, [facility] [place] [facility] [address] [facility] [id number] [place] [address]- 1618 Oct, [facility] [place] [facility] [address] [id number], [place] [address]- 6[address] Oct, [facility] [place] [facility] [address] [id number] [place] [address]- 3210 Sep, [facility] [place] [facility] [address] [id number], [place] [address]- 450[address] Sep, [facility] [place] [facility] [address] [facility] [id number], [place] [address]- 4935 Sep, [facility] [place] [facility] [address] [id number], [place] [address]- 0[address] 15 Sep, 2013 [facility] [address] [id number] [place] [address]- 1177 14 Sep, 2013 [facility] [place] [facility] [address] [id number] [place] [address]- 5414 14 Sep, 2013 [facility] [place] [facility] [address] [id number] [place] [address]- 5629 Sep, [facility] [place] [facility] [address] [id number] [place] [address]- 8322 Sep, [facility] [address] [id number] [place] [address]- 9343 Sep, [facility] [place] [facility] [address] [id number] [place] [address]- 3869 Sep, [facility] [address] [id number], [place] [address]- 5169 Aug, [facility] [place] [facility] [address] [id number] [place] [address]- 3157 Aug, [facility] [place] [facility] [address] [id number] [place] [address]- 3437 Jul, [facility] [place] [facility] [address] [id number] [place] [address]- 1445 Jul, [facility] [place] [facility] [address] [id number], [place] [address]- 2898 Jul, [facility] [place] [facility] [address] [id number], [place] [address]- 4290 Jul, [facility] [place] [facility] [address] [id number], [place] [address]- 4026 Jul, [facility] [place] [facility] [address] [id number], [place] [address]- 4454 Jul, [facility] [place] [facility] [address] [id number], [place] [address]- 4647 Jul, [facility] [place] [facility] [address] [id number] [place] [address]- 6951 12 Jul, 2013 [facility] [place] [facility] [address] [id number] [place] [address]- 3312 Jul, [facility] [place] [facility] [address] [id number] [place] [address]- 7714 Jul, [facility] [place] [facility] [address] [id number] [place] [address]- 8641 Jul, [facility] [place] [facility] [address] [id number] [place] [address]- 8844 Jul, 2012 [facility] [place] [facility] [address] [id number] [place] [address]- 9020 Jul, [facility] [place] [facility] [address] [id number] [place] [address]- 8454 Jul, [facility] [place] [facility] [address] [id number] [place] [address]- 1038 Jul, [facility] [place] [facility] [address] [id number] [place] [address]- 7753 Jul, [facility] [place] [facility] [address] [id number] [place] [address]- 4554 Jul, [facility] [place] [facility] [address] [id number] [place] [address]- 8254 Jul, [facility] [place] [facility] [address] [id number] [place] [address]- 5831 Jul, [facility] [place] [facility] [address] [id number] [place] [address]- 1765 Jun, [facility] [place] [facility] [address] [id number] [place] [address] Jun, [facility] [place] [facility] [address] [id number] [place] [address]- 2204 Jun, [facility] [place] [facility] [address] [id number] [place] [address]- 2655 16 Jun, 2013 [facility] [place] [facility] [address] [id number] [place] [address]- 8227 16 Jun, 2013 [facility] [place] [facility] [address] [id number] [place] [address]- 6497 16 Jun, 2013 [facility] [place] [facility] [address] [id number] [place] [address]- 3450 10 Jun, 2013 [facility] [place] [facility] [address] [id number] [place] [address]- 6763 10 Jun, 2013 [facility] [place] [facility] [address] [id number] [place] [address]- 5846 Jun, [facility] [place] [facility] [address] [id number] [place] [address]- 3376 Jun, [facility] [place] [facility] [address] [id number] [place] [address]- 0355 Jun, [facility] [place] [facility] [address] [id number], [place] [address]- 7060 26 Sep, 2012 [facility] [place] [facility] [address] [id number] [place] [address]- 2832 25 Sep, 2012 [facility] [place] [facility] [address] [id number], [place] [address]- 3125 19 Sep, 2012 [facility] [place] [facility] [address] [id number], [place] [address]- 2901 17 Sep, 2012 [facility] [place] [facility] [address] [id number][place] [address]- 2044 11 Sep, 2012 [facility] [place] [facility] [address] [id number] [place] [address]- 6451 10 Sep, 2012 [facility] [place] [facility] [address] [id number], [place] [address]- 9377 09 Sep, 2012 [facility] [place] [facility] [address] [id number], [place] [address]- 5412 05 Sep, 2012 [facility] [place] [facility] [address] [id number] [place] [address]- 0959 Apr, [facility] [place] [facility] [address] [id number] [place] [address]- 7774 Apr, [facility] [place] [facility] [address] [id number] [place] [address]- 9382 Apr, [facility] [place] [facility] [address] [id number] [place] [address]- 3959 Apr, [facility] [place] [facility] [address] [id number] [place] [address]- 1773 Apr, [facility] [place] [facility] [address] [id number] [place] [address]- 3108 Mar, [facility] [place] [facility] [address] [id number] [place] [address]- 6919 Mar, [facility] [place] [facility] [address] [id number] [place] [address]- 7776 Mar, [facility] [place] [facility] [address] [id number] [place] [address]- 5320 Mar, [facility] [place] [facility] [address] [id number] [place] [address]- 6984 Mar, [facility] [place] [facility] [address] [id number] [place] [address]- 2375 Mar, [facility] [place] [facility] [address] [id number] [place] [address]- 9271 Mar, [facility] [place] [facility] [address] [id number] [place] [address]- 8193 Mar, [facility] [place] [facility] [address] [id number] [place] [address]- 5834 Feb, [facility] [place] [facility] [address] [id number] [place] [address]- 9361 Feb, [facility] [place] [facility] [address] [id number] [place] [address]- 8521 January, [facility] [place] [facility] [address] [id number] [place] [address]- 4383 January, [facility] [address] [id number] [place] [address]- 2485 Dec, [facility] [address] [id number] [place] [address]- 0364 Dec, [facility] [address] [id number] [place] [address]- 1916 Nov, [facility] [address] [id number] [place] [address]- 2727 Nov, [facility] [address] [id number] [place] [address]- 2863 Nov, [facility] [address] [id number] [place] [address]- 5776 Nov, [facility] [address] [id number] [place] [address]- 6535 Oct, [facility] [address] [id number] [place] [address]- 4653 Oct, [facility] [address] [id number] [place] [address]- 1623 Oct, [facility] [address] [id number] [place] [address]- 2391 Oct, [facility] [address] [id number] [place] [address]- 3279 16 Oct, 2012 [facility] [place] [facility] [address] [id number] [place] [address]- 2677 14 Oct, 2012 [facility] [place] [facility] [address] [id number] [place] [address]- 8695 08 Oct, 2012 [facility] [place] [facility] [address] [id number] [place] [address]- 0950 07 Oct, 2012 [facility] [address] [id number] [place] [address]- 8718 03 Oct, 2012 [facility] [address] [id number] [place] [address]- 0314 30 Sep, 2012 [facility] [address] [id number] [place] [address]- 5403 29 Sep, 2012 [facility] [address] [id number] [place] [address]- 8725 Sep, [facility] [address] [id number] [place] [address]- 9560 Sep, [facility] [address] [id number] [place] [address]- 4927 Sep, [facility] [address] [id number] [place] [address]- 8045 Sep, [facility] [address] [id number] [place] [address]- 2135 Sep, [facility] [address] [id number] [place] [address]- 8288 Sep, [facility] [address] [id number] [place] [address]- 1397 31 Aug, 2012 [facility] [address] [id number] [place] [address]- 6713 31 Aug, 2012 [facility] [address] [id number] [place] [address]- 3726 Aug, [facility] [address] [id number] [place] [address]- 4673 28 Aug, 2012 [facility] [address] [id number] [place] [address]- 5877 Aug, [facility] [address] [id number] [place] [address]- 2805 Aug, [facility] [address] [id number] [place] [address]- 2434 Aug, [facility] [place] [facility] [address] [id number] [place] [address]- 7818 Aug, [facility] [place] [facility] [address] [id number] [place] [address]- 3991 Jul, [facility] [place] [facility] [address] [id number] [place] [address]- 7524 Jul, [facility] [place] [facility] [address] [id number] [place] [address], [place] [address]- 8535 Jul, [facility] [place] [facility] [address] [id number] [place] [address]- 3126 Jul, [facility] [place] [facility] [address] [id number] [place] [address]- 9282 Jul, [facility] [place] [facility] [address] [id number] [place] [address]- 8721 Jul, [facility] [place] [facility] [address] [id number] [place] [address]- 6827 Jun, [facility] [place] [facility] [address] [id number] [place] [address]- 6376 Jun, [facility] [place] [facility] [address] [id number] [place] [address]- 7315 Jun, [facility] [place] [facility] [address] [id number] [place] [address]- 5196 Jun, [facility] [place] [facility] [address] [id number], [place] [address]- 3407 Jun, [facility] [place] [facility] [address] [id number] [place] [address]- 9617 Jun, [facility] [place] [facility] [address] [id number] [place] [address]- 9315 Jun, [facility] [place] [facility] [address] [id number], [place] [address]- 2507 Jun, [facility] [place] [facility] [address] [id number], [place] [address]- 3829 Jun, [facility] [place] [facility] [address] [id number] [place] [address]- 0386 26 May, 2012 [facility] [place] [facility] [address] [id number] [place] [address]- 4176 24 May, 2012 [facility] [place] [facility] [address] [id number] [place] [address]- 4046 May, [facility] [place] [facility] [address] [id number] [place] [address]- 4755 Apr, [facility] [place] [facility] [address] [id number] [place] [address]- 0929 Apr, [facility] [place] [facility] [address] [id number] [place] [address]- 6512 Apr, [facility] [place] [facility] [address] [id number] [place] [address]- 5112 Apr, [facility] [place] [facility] [address] [id number] [place] [address]- 1915 Apr, [facility] [place] [facility] [address] [id number] [place] [address]- 7911 Apr, [facility] [place] [facility] [address] [id number] [place] [address]- 8665 Mar, [facility] [place] [facility] [address] [id number] [place] [address]- 7059 Mar, [facility] [place] [facility] [address] [id number] [place] [address]- 5134 Mar, [facility] [place] [facility] [address] [id number] [place] [address]- 6382 Mar, [facility] [place] [facility] [address] [id number] [place] [address]- 6620 Feb, [facility] [place] [facility] [address] [id number] [place] [address]- 2850 Feb, [facility] [place] [facility] [address] [id number] [place] [address]- 6146 Feb, [facility] [address] [id number] [place] [address]- 2862 Feb, [facility] [address] [id number] [place] [address]- 0416 Feb, [facility] [address] [id number] [place] [address]- 0398 January, [facility] [address] [id number] [place] [address]- 2192 January, [facility] [address] [id number] [place] [address]- 2184 January, [facility] [address] [id number] [place] [address]- 1940 January, [facility] [address] [id number] [place] [address]- 8278 January, [facility] [address] [id number] [place] [address]- 9275 January, [facility] [address] [id number] [place] [address]- 9026 Dec, [facility] [address] [id number] [place] [address]- 0290 Dec, [facility] [address] [id number] [place] [address]- 4536 Dec, [facility] [address] [id number] [place] [address]- 0184 Dec, [facility] [place] [facility] [address] [id number] [place] [address]- 7050 Dec, [facility] [address] [id number] [place] [address]- 4346 Nov, [facility] [address] [id number] [place] [address]- 2270 Nov, [facility] [place] [facility] [address] [id number] [place] [address] Nov, [facility] [place] [facility] [address] [id number] [place] [address] 07 Nov, 2011 [facility] [place] [facility] [address] [id number] [place] [address] 29 Oct, 2011 [facility] [place] [facility] [address] [id number] [place] [address] 28 Oct, 2011 [facility] [place] [facility] [address] [id number] [place] [address] 24 Oct, 2011 [facility] [place] [facility] [address] [id number] [place] [address] 13 Oct, 2011 [facility] [place] [facility] [address] [id number] [place] [address] Oct, [facility] [place] [facility] [address] [id number] [place] [address] Sep, [facility] [place] [facility] [address] [id number] [place] [address] Sep, [facility] [place] [facility] [address] [id number] [place] [address] Sep, [facility] [place] [facility] [address] [id number] [place] [address] Sep, [facility] [place] [facility] [address] [id number] [place] [address] Sep, [facility] [place] [facility] [address] [id number] [place] [address] Sep, [facility] [place] [facility] [address] [id number] [place] [address] Aug, [facility] [place] [facility] [address] [id number] [place] [address] 120[address] Aug, [facility] [place] [facility] [address] [id number] [place] [address] Aug, [facility] [place] [facility] [address] [id number] [place] [address] Jul, [facility] [place] [facility] [address] [id number] [place] [address] Jul, [facility] [place] [facility] [address] [id number] [place] [address] Jul, [facility] [place] [facility] [address] [id number] [place] [address] Jul, [facility] [place] [facility] [address] [id number] [place] [address] 2001 Jun, [facility] [place] [facility] [address] [id number] [place] [address] Jun, [facility] [place] [facility] [address] [id number] [place] [address] Jun, [facility] [place] [facility] [address] [id number] [place] [address] Jun, [facility] [place] [facility] [address] [id number] [place] [address] Jun, [facility] [place] [facility] [address] [id number] [place] [address] Jun, [facility] [place] [facility] [address] [id number] [place] [address] Mar, [facility] [place] [facility] [address] [id number] [place] [address] Dec, [facility] [place] [facility] [address] [id number] [place] [address] Dec, [facility] [place] [facility] [address] [id number] [place] [address] Nov, [facility] [place] [facility] [address] [id number] [place] [address] 16 Nov, 2010 [facility] [place] [facility] [address] [id number] [place] [address] 10 Sep, 2010 [facility] [address] [id number] [place] [address] 31 Aug, 2010 [facility] [place] [facility] [address] [id number] [place] [address] 29 Aug, 2010 [facility] [place] [facility] [address] [id number] [place] [address] 25[address] Aug, [facility] [address] [id number] [place] [address]- 45[address] 29 Aug, 2010 [facility] [place] [facility] [address] [id number] [place] [address] Aug, [facility] [address] [id number] [place] [address] 14 Aug, 2010 [facility] [address] [id number] [place] [address] 08 Aug, 2010 [facility] [place] [facility] [address] [id number] [place] [address] Aug, [facility] [place] [facility] [address] [id number] [place] [address] 42[address] Aug, [facility] [place] [facility] [address] [id number] [place] [address] Aug, [facility] [place] [facility] [address] [id number], [place] [address] Aug, [facility] [place] [facility] [address] [id number] [place] [address] Aug, [facility] [place] [facility] [address] [id number] [place] [address]- 1156 Jul, [facility] [place] [facility] [address] [id number] [place] [address]- 58[address] 30 Jul, 2010 [facility] [place] [facility] [address] [id number], [place] [address] 30 Jul, 2010 [facility] [place] [facility] [address] [id number] [place] [address]- [address] 17 Jul, 2010 [facility] [place] [facility] [address] [id number] [place] [address]- 8766 08 Jul, 2010 [facility] [place] [facility] [address] [id number] [place] [address]- [address] Jul, [facility] [place] [facility] [address] [id number] [place] [address]- 2505 24 Jun, 2010 [facility] [place] [facility] [address] [id number] [place] [address]- [address] Jun, [facility] [place] [facility] [address] [id number] [place] [address]- 7814 Jun, [facility] [place] [facility] [address] [id number] [place] [address]- 69[address] Jun, [facility] [place] [facility] [address] [id number] [place] [address]- 59[address] 16 Apr, 2010 [facility] [place] [facility] [address] [id number] [place] [address] 5[address] Mar, [facility] [place] [facility] [address] [id number] [place] [address] 6709 Feb, [facility] [place] [facility] [address] [id number], [place] [address] January, [facility] [place] [facility] [address] [id number] [place] [address]- [address] 15 Dec, 2009 [facility] [place] [facility] [address] [id number] [place] [address] 11 Nov, 2009 [facility] [place] [facility] [address] [id number] [place] [address]- 6546 31 Aug, 2009 [facility] [place] [facility] [address] [id number] [place] [address]- 4[address] 23 Aug, 2009 [facility] [place] [facility] [address] [facility] [id number], [place] [address] Aug, [facility] [address] [facility] [id number], [place] [address] Jul, [facility] [address] [facility] [id number], [place] [address] 89[address] Jul, [facility] [address] [facility] [id number], [place] [address]- 9[address] Jul, [facility] [address] [facility] [id number], [place] [address] Jun, [facility] [address] [facility] [id number], [place] [address] Jun, [facility] [address] [facility] [id number][place] [address] Jun, [facility] [id number], [place] [address] 284[address] Jun, [facility] [address] [facility] [id number], [place] [address]- [address] Jun, [facility] [id number], [place] [address] Jun, [facility] [address] [id number] [address] Apr, [facility] [id number], [place] [address] Apr, [facility] [address] [facility] [id number] [address] Feb, [facility] [id number], [place] [address] January, [facility] [id number], [place] [address] Dec, IMMUNIZATIONS No Known Immunizations SOCIAL HISTORY Never Assessed REASON FOR VISIT Controlled Med Refill 01/16/18 PLAN OF CARE VITAL SIGNS MEDICATIONS Medication Instructions Dosage Frequency Start Date End Date Duration Status Percocet 10-325 MG Orally 4 times a day 1 tablet as needed 6h Dec, 28 days Active RESULTS No Results PROCEDURES [...] obesity Medical History skin cancer-basal cell R islam (removed) Medical History Arthritis Medical History degenerative [...] [facility] ([facility]) Surgical History heart 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 04/2014 Surgical History carotid US 05/2014 Surgical History resection of skin cancer from Right islam Surgical History Biopsy of Lung Bilateral/Left lung [...]
--- OUTSIDE RECORDS SUMMARY | 2018-08-08 14:26 | XMS REPORT ---
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 Name Role Phone ROSELINE LUIS Unavailable PROBLEMS Type Condition ICD9-CM Code CYK02-IV Code Onset Dates Condition Status SNOMED Code Problem Chronic lymphocytic leukemia C91.10 Active 60015165 Problem Lymphocytosis D72.820 Active 86182093 Problem Eye exam abnormal R93.8 Active 641801334 Problem Morbid obesity E66.01 Active 865753889 Problem Eustachian tube dysfunction, unspecified laterality H69.80 Active 76106874 Problem Essential hypertension I10 Active 26572976 Problem Dysuria R30.0 Active 72669897 Problem Diabetic polyneuropathy associated with type 2 diabetes mellitus E11.42 Active 26248915 Problem Bilateral primary osteoarthritis of knee M17.0 Active 021514953 Problem Polyneuropathy associated with underlying disease G63 Active 967076549 Problem Pure hypercholesterolemia E78.00 Active 775458112 Problem Bipolar disorder, in partial remission, most recent episode depressed F31.75 Active 28311316 Problem Benign prostatic hyperplasia with lower urinary tract symptoms, unspecified morphology N40.1 Active 739428503 Problem Hypokalemia E87.6 Active 19681099 Problem Cough R05 Active 65463161 Problem Anemia of chronic illness D63.8 Active 749866521 Problem Retinal edema H35.81 Active 2995544 Problem Falling R29.6 Active 524389410 Problem 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 Active 407587843 Problem Chronic pain G89.29 Active 83108245 Problem Leukocytosis D72.829 Active 743171456 Problem DM neuro manif type II E11.49 Active 20269457 Problem Diabetes E11.9 Active 88293598 Problem Insomnia, unspecified type G47.00 Active 508094157 Problem Anxiety F41.9 Active 21666876 Problem Reactive airway disease J45.909 Active 626428814514 Problem Bipolar I disorder, most recent episode (or current) mixed, moderate F31.62 Active 22424508 ALLERGIES No Information ENCOUNTERS Encounter Location Date Diagnosis [facility] [id number] [place] [address] 81040- 1650 Jun, [facility] [id number] [place] [address] 87338- 7124 Apr, [facility] [address] 71137- 3523 Apr, [facility] [id number] [place] [address] 44529- 6852 Apr, [facility] [address] 33669- 0206 Mar, [facility] [id number] [place] [address] 81292- 8880 Mar, BMI 50.0-59.9, adult Z68.43 and Bipolar disorder, in partial remission, most recent episode depressed F31.75 [facility] [id number] [place] [address] 33096- 3468 Mar, Diabetes E11.9 ; Pure hypercholesterolemia E78.00 ; Essential hypertension I10 ; Nausea with vomiting, unspecified R11.2 and Headache, unspecified headache type R51 [facility] [id number] [place] [address] 97534- 1512 Mar, Bipolar I disorder, most recent episode (or current) mixed, moderate F31.62 [facility] [id number] [place] [address] 86334- 6841 Mar, Bipolar I disorder, most recent episode (or current) mixed, moderate F31.62 [facility] [id number] [place] [address] 54034- 1829 Mar, Chronic pain G89.29 [facility] [id number] [place] [address] 89736- 0020 Mar, Bipolar I disorder, most recent episode (or current) mixed, moderate F31.62 [facility] [address] [place] [address] 11407- 8430 18 Feb, 2018 Bipolar I disorder, most recent episode (or current) mixed, moderate F31.62 [facility] [id number] [place] [address] 35402- 7372 14 Feb, 2018 Chronic pain G89.29 [facility] [id number] [place] [address] 85461- 5554 06 Feb, 2018 Decubitus ulcer of right foot, stage 3 L89.893 and BMI 50.0- 59.9, adult Z68.43 [facility] [id number] [place] [address] 84245- 3772 Feb, Bipolar I disorder, most recent episode (or current) mixed, moderate F31.62 [facility] [id number] [place] [address] 82730- 7135 Feb, [facility] [id number] [place] [address] 27358- 9496 January, [facility] [id number] [place] [address] 22325- 1491 January, Chronic pain G89.29 [facility] [id number] [place] [address] 94376- 2830 January, Bipolar I disorder, most recent episode (or current) mixed, moderate F31.62 [facility] [id number] [place] [address] 24341- 2988 January, Bipolar I disorder, most recent episode (or current) mixed, moderate F31.62 [facility] [id number] [place] [address] 14794- 7118 Dec, Bipolar I disorder, most recent episode (or current) mixed, moderate F31.62 and BMI 50.0-59.9, adult Z68.43 [facility] [address] [place] [address] 90825- 2206 Dec, Bipolar I disorder, most recent episode (or current) mixed, moderate F31.62 [facility] [id number] [place] [address] 64892- 5474 Dec, Chronic pain G89.29 [facility] [id number] [place] [address] 72555- 6580 Dec, DM neuro manif type II E11.49 ; Right flank pain R10.9 ; 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 ; Encounter for medication monitoring Z51.81 and BMI 50.0-59.9, adult Z68.43 [facility] [id number] [place] [address] 73997- 2854 Dec, Bipolar I disorder, most recent episode (or current) mixed, moderate F31.62 [facility] [id number] [place] [address] 46543- 6611 Nov, Bipolar I disorder, most recent episode (or current) mixed, moderate F31.62 [facility] [id number] [place] [address] 38833- 4213 Nov, Chronic pain G89.29 [facility] [id number] [place] [address] 09894- 1624 Nov, Bipolar I disorder, most recent episode (or current) mixed, moderate F31.62 [facility] [id number] [place] [address] 79233- 6011 Nov, Hypokalemia E87.6 [facility] [id number] [place] [address] 63722- 4581 Nov, Bipolar I disorder, most recent episode (or current) mixed, moderate F31.62 [facility] [id number] [place] [address] 03158- 3030 Oct, Chronic pain G89.29 [facility] [id number] [place] [address] 95033- 9945 Oct, BMI 50.0-59.9, adult Z68.43 and Bipolar I disorder, most recent episode (or current) mixed, moderate F31.62 [facility] [id number] [place] [address] 67932- 0471 Oct, Bipolar I disorder, most recent episode (or current) mixed, moderate F31.62 [facility] [id number] [place] [address] 44276- 1499 Oct, [facility] [id number] [place] [address] 37519- 2474 Oct, Hypokalemia E87.6 [facility] [address] 15633- 5903 Oct, DM neuro manif type II E11.49 [facility] [id number] [place] [address] 13123- 3489 Oct, Bipolar I disorder, most recent episode (or current) mixed, moderate F31.62 [facility] [id number] [place] [address] 65635- 2300 Oct, Bipolar I disorder, most recent episode (or current) mixed, moderate F31.62 [facility] [id number] [place] [address] 35011- 8629 Oct, Hyperkalemia E87.5 ; Falling R29.6 ; BMI 50.0-59.9, adult Z68.43 and Acute left ankle pain M25.572 [facility] [id number] [place] [address] 12987- 9426 Oct, DM neuro manif type II E11.49 [facility] [id number] [place] [address] 50009- 6536 Oct, [facility] [id number] [place] [address] 18739- 6545 Sep, Chronic pain G89.29 [facility] [id number] [place] [address] 62041- 3891 Sep, [facility] [id number] [place] [address] 62064- 6068 Sep, Bilateral primary osteoarthritis of knee M17.0 [facility] [id number] [place] [address] 34575- 0105 Sep, Generalized edema R60.1 [facility] [address] 62703- 4472 Sep, Bipolar I disorder, most recent episode (or current) mixed, moderate F31.62 [facility] [id number] [place] [address] 59741- 5657 15 Sep, 2017 Hypoxia R09.02 ; Other hypervolemia E87.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 ; Anemia of chronic illness D63.8 and BMI 50.0- 59.9, adult Z68.43 [facility] [id number] [place] [address] 30465- 5305 Sep, [facility] [address] 73094- 9369 Sep, Bipolar I disorder, most recent episode (or current) mixed, moderate F31.62 [facility] [id number] [place] [address] 79239- 2540 Aug, Chronic pain G89.29 [facility] [id number] [place] [address] 09176- 4615 Aug, Generalized edema R60.1 [facility] [id number] [place] [address] 69972- 4277 Aug, [facility] [address] 83441- 1981 Aug, [facility] [id number] [place] [address] 83376- 0345 Aug, Bipolar I disorder, most recent episode (or current) mixed, moderate F31.62 [facility] [address] [place] [address] 76071- 8997 Aug, Bipolar I disorder, most recent episode (or current) mixed, moderate F31.62 [facility] [address] [place] [address] 728567- 2827 Aug, Chronic pain G89.29 [facility] [id number] [place] [address] 871143- 6639 Jul, Bipolar I disorder, most recent episode (or current) mixed, moderate F31.62 [facility] [id number] [place] [address] 534845- 0510 Jul, Bipolar I disorder, most recent episode (or current) mixed, moderate F31.62 and BMI 60.0-69.9, adult Z68.44 [facility] [id number] [place] [address] 21084- 9860 Jul, Bipolar I disorder, most recent episode (or current) mixed, moderate F31.62 [facility] [id number] [place] [address] 94135- 4774 Jul, Chronic pain G89.29 [facility] [id number] [place] [address] 01452- 7227 Jul, Bipolar I disorder, most recent episode (or current) mixed, moderate F31.62 [facility] [id number] [place] [address] 99763- 4872 Jun, Polyneuropathy associated with underlying disease G63 and Diabetes E11.9 [facility] [id number] [place] [address] 01019- 4150 Jun, Bipolar I disorder, most recent episode (or current) mixed, moderate F31.62 [facility] [id number] [place] [address] 56797- 3808 Jun, Chronic pain G89.29 [facility] [address] [place] [address]- 7793 27 May, 2017 Bipolar I disorder, most recent episode (or current) mixed, moderate F31.62 [facility] [id number] [place] [address] 09090- 9141 21 May, 2017 Bipolar I disorder, most recent episode (or current) mixed, moderate F31.62 [facility] [id number] [place] [address] 38945- 4726 20 May, 2017 Diabetic polyneuropathy associated with type 2 diabetes mellitus E11.42 [facility] [address] [place] [address] 88862- 6579 18 May, 2017 Bipolar I disorder, most recent episode (or current) mixed, moderate F31.62 [facility] [address] [place] [address] 85568- 6340 13 May, 2017 Bipolar I disorder, most recent episode (or current) mixed, moderate F31.62 [facility] [address] [place] [address] 10897- 7887 May, Chronic pain G89.29 [facility] [id number] [place] [address] 40578- 3659 Apr, Bipolar I disorder, most recent episode (or current) mixed, moderate F31.62 [facility] [address] [place] [address] 03830- 2812 Apr, [facility] [id number] [place] [address] 06532- 4749 Apr, Chronic pain G89.29 and DM neuro manif type II E11.49 [facility] [id number] [place] [address] 68326- 5471 Apr, [facility] [id number] [place] [address] 77018- 4540 Apr, Bipolar I disorder, most recent episode (or current) mixed, moderate F31.62 [facility] [id number] [place] [address] 57651- 0250 Apr, Chronic pain G89.29 [facility] [address] [address]- 1452 Apr, Iliotibial band syndrome, left M76.32 [facility] [address] [place] [address] 08327- 4240 Apr, Bipolar I disorder, most recent episode (or current) mixed, moderate F31.62 [facility] [address] [place] [address] 65834- 4422 Mar, Bipolar I disorder, most recent episode (or current) mixed, moderate F31.62 [facility] [address] [place] [address] 47684- 4861 Mar, Bipolar I disorder, most recent episode (or current) mixed, moderate F31.62 [facility] [address] [place] [address] 49296- 5786 Mar, [facility] [address] [place] [address] 91255- 0948 Mar, Bipolar I disorder, most recent episode (or current) mixed, moderate F31.62 [facility] [address] [place] [address] 85180- 0257 Mar, Chronic pain G89.29 [facility] [address] [address]- 7115 Mar, Bipolar I disorder, most recent episode (or current) mixed, moderate F31.62 [facility] [address] [address]- 4249 Mar, Bipolar I disorder, most recent episode (or current) mixed, moderate F31.62 [facility] [address] [address]- 2375 Mar, Acute pain of left knee M25.562 ; Left hip pain M25.552 ; Generalized edema R60.1 and Tongue swelling R22.0 [facility] [address] [place] [address] 44302- 4140 Mar, [facility] [id number] [place] [address] 45751- 5619 Feb, Chronic pain G89.29 [facility] [id number] [place] [address] 68347- 7856 Feb, Diabetes E11.9 [facility] [id number] [place] [address] 17136- 5062 January, Chronic pain G89.29 [facility] [id number] [place] [address] 25641- 9663 January, [facility] [id number] [place] [address] 37446- 4045 January, Bipolar I disorder, most recent episode (or current) mixed, moderate F31.62 [facility] [id number] [place] [address] 19370- 3108 Dec, Bipolar I disorder, most recent episode (or current) mixed, moderate F31.62 [facility] [id number] [place] [address] 79944- 6080 Dec, Chronic pain G89.29 [facility] [id number] [place] [address] 73488- 8535 Dec, Bipolar I disorder, most recent episode (or current) mixed, moderate F31.62 [facility] [address] [place] [address] 38061- 7696 Dec, Diabetes E11.9 ; Essential hypertension I10 ; Chronic pain G89.29 and Morbid obesity E66.01 [facility] [id number] [place] [address] 31963- 6511 Dec, [facility] [id number] [place] [address] 47384- 1757 Dec, Bipolar I disorder, most recent episode (or current) mixed, moderate F31.62 [facility] [address] [address]- 0646 Dec, Bipolar I disorder, most recent episode (or current) mixed, moderate F31.62 [facility] [address] [place] [address] 46343- 8406 Nov, Chronic pain G89.29 [facility] [id number] [place] [address] 45615- 8436 Nov, Bipolar I disorder, most recent episode (or current) mixed, moderate F31.62 [facility] [address] [place] [address] 26962- 5536 Nov, [facility] [id number] [place] [address] 62390- 6466 Nov, Bipolar I disorder, most recent episode (or current) mixed, moderate F31.62 [facility] [id number] [place] [address] 65141- 6043 Nov, Bipolar I disorder, most recent episode (or current) mixed, moderate F31.62 [facility] [address] [place] [address] 47535- 3536 Nov, [facility] [address] [place] [address] 43442- 5336 Nov, [facility] [address] [address]- 9346 Nov, [facility] [id number] [place] [address] 26871 2546 Oct, Chronic pain G89.29 [facility] [address] [place] [address] 58256- 5286 Oct, Bipolar I disorder, most recent episode (or current) mixed, moderate F31.62 [facility] [address] [address]- 9806 Oct, [facility] [address] [address]- 4929 15 Oct, 2016 Chronic pain G89.29 ; Diabetes E11.9 ; Anxiety F41.9 and 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 [facility] [address] [place] [address] 48153- 1780 10 Oct, 2016 [facility] [id number] [place] [address] 43351- 3136 06 Oct, 2016 Diabetes E11.9 [facility] [id number] [place] [address] 50908 2549 Oct, Bipolar I disorder, most recent episode (or current) mixed, moderate F31.62 [facility] [id number] [place] [address] 97627- 0817 Sep, Chronic pain G89.29 [facility] [id number] [place] [address] 77020- 3913 Sep, Chronic pain G89.29 [facility] [id number] [place] [address] 65019- 8989 Aug, Chronic pain G89.29 [facility] [id number] [place] [address] 44510- 8926 Jul, [facility] [id number] [place] [address] 46277- 3762 Jul, Diabetes E11.9 [facility] [id number] [place] [address] 33515- 1386 Jul, Chronic pain G89.29 [facility] [address] [place] [address] 40183- 9958 Jul, Bipolar I disorder, most recent episode (or current) mixed, moderate F31.62 [facility] [address] [place] [address] 44858- 8682 Jun, Bipolar I disorder, most recent episode (or current) mixed, moderate F31.62 [facility] [address] [address]- 1319 Jun, [facility] [id number] [place] [address] 24094- 5060 Jun, Bipolar I disorder, most recent episode (or current) mixed, moderate F31.62 [facility] [id number] [place] [address] 05023- 8414 30 May, 2016 Insomnia, unspecified type G47.00 [facility] [id number] [place] [address] 28866- 1933 May, Bipolar I disorder, most recent episode (or current) mixed, moderate F31.62 [facility] [id number] [place] [address] 58956- 0419 May, [facility] [id number] [place] [address] 00428- 3269 May, Bipolar I disorder, most recent episode (or current) mixed, moderate F31.62 [facility] [id number] [place] [address] 82121- 1497 May, Diabetes E11.9 and Essential hypertension I10 [facility] [id number] [place] [address] 20224- 5280 Apr, Chronic pain G89.29 [facility] [id number] [place] [address] 21405- 1833 Apr, Bipolar I disorder, most recent episode (or current) mixed, moderate F31.62 [facility] [id number] [place] [address] 09839- 2247 Apr, [facility] [id number] [place] [address] 99529- 5466 Apr, [facility] [address] [place] [address] 90003- 5861 Mar, Chronic pain G89.29 ; Headache, unspecified headache type R51 ; Neuropathy G62.9 ; Pain of right hip joint M25.551 and Essential hypertension I10 [facility] [address] [place] [address] 77973- 3624 Mar, Chronic pain G89.29 [facility] [id number] [place] [address] 43714- 6722 Mar, Bipolar I disorder, most recent episode (or current) mixed, moderate F31.62 [facility] [id number] [place] [address] 74336- 3363 Feb, Bipolar I disorder, most recent episode (or current) mixed, moderate F31.62 and Insomnia, unspecified type G47.00 [facility] [id number] [place] [address] 48755- 4415 Feb, Chronic pain G89.29 [facility] [id number] [place] [address] 65935- 3493 Feb, Bipolar I disorder, most recent episode (or current) mixed, moderate F31.62 [facility] [id number] [place] [address] 04390- 5312 January, Bipolar I disorder, most recent episode (or current) mixed, moderate F31.62 [facility] [id number] [place] [address] 25533- 5481 January, Chronic pain G89.29 [facility] [id number] [place] [address] 96676- 4082 January, Chronic pain G89.29 and Essential hypertension I10 [facility] [id number] [place] [address] 49130- 5088 January, Bipolar I disorder, most recent episode (or current) mixed, moderate F31.62 [facility] [id number] [place] [address] 15860- 4150 Dec, [facility] [id number] [place] [address] [phone]- 4504 Dec, [facility] [id number] [place] [address] 43206- 4439 Dec, [facility] [id number] [place] [address] 55930- 2968 Dec, [facility] [id number] [place] [address] 27697- 9656 Nov, Reactive airway disease J45.909 [facility] [address] 47141- 8827 Nov, [facility] [address] 36566- 8779 Nov, [facility] [address] 33798- 8804 Nov, [facility] [address] 96516- 3373 Nov, [facility] [id number] [place] [address] 81936- 4033 Nov, Onychomycosis B35.1 ; [place] M20.40 ; Woodson or callus L84 and DM neuro manif type II E11.49 [facility] [id number] [place] [address] 47734- 8952 Nov, Chronic pain G89.29 ; Leukocytosis D72.829 and Diabetes E11.9 [facility] [id number] [place] [address] 07256- 4382 Nov, [facility] [id number] [place] [address] 82438- 7463 Oct, Bronchitis J40 [facility] [id number] [place] [address] 35217- 2682 Oct, [facility] [id number] [place] [address] 91645- 7848 Oct, [facility] [id number] [place] [address] 20455- 5398 Oct, Mastoiditis, unspecified laterality H70.90 and Type 2 diabetes mellitus with complication E11.8 [facility] [id number] [place] [address] 50741- 8331 Sep, [facility] [id number] [place] [address] 85231- 8827 Sep, Dysuria R30.0 ; Cough R05 ; Benign prostatic hyperplasia with lower urinary tract symptoms, unspecified morphology N40.1 ; Hypokalemia E87.6 and Eustachian tube dysfunction, unspecified laterality H69.80 [facility] [id number] [place] [address] 19337- 8725 Sep, Moderate mixed bipolar I disorder F31.62 [facility] [id number] [place] [address] 03800- 7699 Sep, Hypokalemia E87.6 [facility] [id number] [place] [address] 49079- 1497 Sep, [facility] [id number] [place] [address] 73185- 2855 Sep, Upper respiratory tract infection, unspecified type J06.9 [facility] [id number] [place] [address] 66014- 0846 Aug, [facility] [id number] [place] [address] 90047- 8005 Aug, Dysuria R30.0 [facility] [id number] [place] [address] 42793- 6734 Aug, [facility] [id number] [place] [address] 22887- 2094 Jul, [facility] [id number] [place] [address] 97322- 2872 Jul, [facility] [id number] [place] [address] 68093- 0719 Jul, [facility] [address] [address] 2617 Jul, [facility] [address] [address]- 8438 Jun, [facility] [address] [address] 0445 Jun, [facility] [address] [place] [address] 81961- 5773 Jun, [facility] [address] [place] [address] 34064- 1600 May, [facility] [id number] [place] [address] [id number]- 9557 May, Bipolar I disorder, most recent episode (or current) mixed, moderate 296.62 [facility] [id number] [place] [address] 02944- 1057 May, [facility] [address] [address]- 1078 May, Bipolar I disorder, most recent episode (or current) mixed, moderate 296.62 and Major depressive disorder, recurrent episode, severe, specified as with psychotic behavior 296.34 [facility] [address] [address]- 0421 May, Bipolar I disorder, most recent episode (or current) mixed, moderate 296.62 [facility] [address] [address]- 0509 May, [facility] [address] [address]- 8862 Apr, [facility] [address] [address]- 5301 Apr, [facility] [id number] [address]- 3564 Apr, Unspecified disorder of kidney and ureter 593.9 and Diabetes mellitus type 2, uncontrolled 250.02 [facility] [address] [address]- 2119 Apr, [facility] [address] [address]- 9221 Apr, [facility] [address] [address]- 1361 Apr, [facility] [id number] [place] [address] 27517- 3955 Apr, [facility] [address] [place] [address] 42656- 6695 Apr, Diabetes mellitus type II, uncontrolled 250.02 [facility] [address] [place] [address] 04470- 0851 Apr, [facility] [id number] [place] [address] 74804- 4957 Mar, [facility] [address] [place] [address] 46031- 3594 Mar, [facility] [address] [place] [address] 47452- 9854 Mar, [facility] [address] [address]- 1660 Mar, Major depressive disorder, recurrent episode, severe, specified as with psychotic behavior 296.34 and Bipolar I disorder, most recent episode (or current) mixed, moderate 296.62 [facility] [address] [address]- 0712 Mar, Diabetes 250.00 ; Anuria 788.5 ; Nausea and vomiting 787.01 and Diarrhea 787.91 [facility] [address] [address]- 9279 Mar, Diabetes 250.00 [facility] [address] [address]- 4536 Mar, [facility] [address] [address]- 7491 Mar, Diabetes 250.00 [facility] [address] [place] [address] 12883- 6940 Mar, [facility] [address] [place] [address] 34832- 8236 Mar, [facility] [address] [place] [address] 09182- 4554 Mar, [facility] [address] [place] [address] 73607- 6882 Mar, [facility] [address] [place] [address] 42134- 6437 Mar, Bipolar I disorder, most recent episode (or current) mixed, moderate 296.62 and Major depressive disorder, recurrent episode, severe, specified as with psychotic behavior 296.34 [facility] [address] [place] [address] 01421- 1676 Mar, Magnesium deficiency 275.2 ; Hypokalemia 276.8 ; Nausea & vomiting 787.01 and Diabetes mellitus type 2, uncontrolled 250.02 [facility] [address] [place] [address] 80600- 1150 Feb, [facility] [address] [place] [address] 56888- 0750 Feb, Bipolar I disorder, most recent episode (or current) mixed, moderate 296.62 [facility] [address] [place] [address] 55160- 8859 Feb, Nausea and vomiting 787.01 ; Left elbow pain 719.42 ; Anuria 788.5 and Diabetes 250.00 [facility] [address] [address]- 4501 Feb, [facility] [address] [address]- 3956 Feb, Hypopotassemia 276.8 and Hypokalemia 276.8 [facility] [address] [address]- 9878 Feb, Hypopotassemia 276.8 and Hypokalemia 276.8 [facility] [address] [address]- 0262 Feb, Seborrheic keratoses 702.19 [facility] [id number] [place] [address] 75804- 6609 Feb, Hypopotassemia 276.8 and Low magnesium levels 275.2 [facility] [address] [place] [address] 66786- 6777 January, [facility] [id number] [place] [address] 60273- 2345 January, [facility] [id number] [place] [address] 82815- 5022 January, [facility] [id number] [place] [address] 11886- 7464 January, Scalp lesion 709.9 [facility] [id number] [place] [address] 53049- 9502 January, [facility] [id number] [place] [address] 69678- 6701 Dec, Tear of medial cartilage or meniscus of knee, current 836.0 and 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 [facility] [address] [address]- 3044 Dec, [facility] [address] [address]- 6625 Dec, [facility] [id number] [place] [address] 72269- 8294 Dec, Squamous cell carcinoma, 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 [facility] [id number] [place] [address] 32876- 8298 14 Dec, 2014 [facility] [place] [facility] [address] [id number] [place] [address]- 0760 Dec, [facility] [place] [facility] [address] [id number] [place] [address]- 8081 Nov, [facility] [place] [facility] [address] [id number] [place] [address]- 9419 Nov, [facility] [place] [facility] [address] [id number] [place] [address]- 4758 Nov, [facility] [place] [facility] [address] [id number] [place] [address]- 3453 Nov, [facility] [place] [facility] [address] [id number] [place] [address]- 1935 Nov, [facility] [place] [facility] [address] [id number] [place] [address]- 2660 Nov, [facility] [place] [facility] [address] [id number] [place] [address]- 3468 Nov, [facility] [place] [facility] [address] [id number] [place] [address]- 0198 Nov, [facility] [place] [facility] [address] [id number] [place] [address]- 3441 Nov, [facility] [place] [facility] [address] [id number] [place] [address]- 5526 Nov, [facility] [place] [facility] [address] [id number] [place] [address]- 1090 Nov, [facility] [place] [facility] [address] [id number] [place] [address]- 2018 Nov, [facility] [place] [facility] [address] [id number] [place] [address]- 6234 Oct, [facility] [place] [facility] [address] [id number] [place] [address]- 0827 Oct, [facility] [place] [facility] [address] [id number] [place] [address]- 1505 Oct, 2014 [facility] [place] [facility] [address] [id number] [place] [address]- 4925 Oct, 2014 [facility] [place] [facility] [address] [id number] [place] [address]- 6553 Oct, 2014 [facility] [place] [facility] [address] [id number] [place] [address]- 1390 Oct, 2014 [facility] [place] [facility] [address] [id number] [place] [address]- 5084 Oct, 2014 [facility] [place] [facility] [address] [id number] [place] [address]- 4879 Oct, [facility] [place] [facility] [address] [id number] [place] [address]- 2659 Oct, [facility] [place] [facility] [address] [id number] [place] [address]- 3883 Sep, [facility] [place] [facility] [address] [id number] [place] [address]- 3610 Sep, [facility] [place] [facility] [address] [id number] [place] [address]- 1406 Sep, [facility] [place] [facility] [address] [facility] [id number] [place] [address]- 4147 Sep, [facility] [place] [facility] [address] [id number] [place] [address]- 4335 Sep, [facility] [place] [facility] [address] [id number] [address]- 7170 Sep, [facility] [place] [facility] [address] [id number] [address]- 2164 Sep, [facility] [place] [facility] [address] [id number] [place] [address]- 1100 Sep, [facility] [place] [facility] [address] [id number] [address]- 3624 Sep, [facility] [place] [facility] [address] [id number] [place] [address]- 6604 Sep, [facility] [place] [facility] [address] [id number] [place] [address]- 9198 Sep, [facility] [place] [facility] [address] [id number] [place] [address]- 0237 08 Sep, 2014 [facility] [place] [facility] [address] [id number] [place] [address]- 0797 Sep, [facility] [place] [facility] [address] [id number] [place] [address]- 8892 Sep, [facility] [place] [facility] [address] [id number] [place] [address]- 1158 Sep, [facility] [place] [facility] [address] [id number] [place] [address]- 2470 Sep, [facility] [place] [facility] [address] [id number] [place] [address]- 1889 Aug, [facility] [place] [facility] [address] [id number] [place] [address]- 2724 Aug, [facility] [place] [facility] [address] [id number] [place] [address]- 0820 Aug, [facility] [place] [facility] [address] [id number] [place] [address]- 0898 Aug, [facility] [place] [facility] [address] [id number] [place] [address]- 1246 31 Aug, 2014 [facility] [place] [facility] [address] [id number] [place] [address]- 3421 31 Aug, 2014 [facility] [place] [facility] [address] [id number] [place] [address]- 7146 17 Aug, 2014 [facility] [place] [facility] [address] [id number] [place] [address]- 3532 17 Aug, 2014 [facility] [place] [facility] [address] [id number] [place] [address]- 7408 Aug, [facility] [address] [id number] [place] [address]- 7429 Aug, [facility] [address] [id number] [place] [address]- 0169 Aug, [facility] [address] [place] [id number] Aug, [facility] [address] [id number] [place] [address]- 8431 Aug, [facility] [address] [id number] [place] [address]- 3323 Aug, [facility] [address] [id number] [place] [address]- 8209 Aug, [facility] [address] [id number] [place] [address]- 0016 Aug, [facility] [address] [id number] [place] [address]- 9006 Aug, [facility] [address] [id number] [place] [address]- 2403 Aug, [facility] [address] [id number] [place] [address]- 1060 Aug, [facility] [place] [facility] [address] [id number] [place] [address]- 5944 Aug, [facility] [place] [facility] [address] [id number] [place] [address]- 7406 Aug, [facility] [place] [facility] [address] [id number] [place] [address]- 3739 Aug, [facility] [place] [facility] [address] [id number] [place] [address]- 2322 Aug, [facility] [place] [facility] [address] [id number] [place] [address]- 1090 Aug, [facility] [place] [facility] [address] [id number] [address]- 4020 Aug, [facility] [place] [facility] [address] [id number] [place] [address]- 2726 Aug, [facility] [place] [facility] [address] [id number] [place] [address]- 0148 Aug, [facility] [place] [facility] [address] [facility] [id number] [place] [address]- 2352 Aug, [facility] [place] [facility] [address] [id number] [place] [address]- 9266 Aug, [facility] [place] [facility] [address] [id number] [place] [address]- 4466 Aug, [facility] [place] [facility] [address] [id number] [place] [address]- 7893 Jul, [facility] [place] [facility] [address] [facility] [id number] [place] [address]- 8710 Jul, [facility] [place] [facility] [address] [id number] [place] [address]- 1238 Jul, [facility] [place] [facility] [address] [id number] [place] [address]- 5066 Jul, [facility] [place] [facility] [address] [facility] [id number] [place] [address]- 9231 Jul, [facility] [place] [facility] [address] [id number] [place] [address]- 8906 Jul, [facility] [place] [facility] [address] [id number] [address]- 0324 Jul, [facility] [place] [facility] [address] [id number] [place] [address]- 1516 Jul, [facility] [place] [facility] [address] [facility] [id number] [place] [address]- 5723 Jul, [facility] [place] [facility] [address] [facility] [id number] [place] [address]- 2285 Jul, [facility] [place] [facility] [address] [id number] [place] [address]- 8814 Jun, [facility] [place] [facility] [address] [id number] [place] [address]- 7407 Jun, [facility] [place] [facility] [address] [id number] [place] [address]- 8256 Jun, [facility] [place] [facility] [address] [id number] [place] [address]- 6573 Jun, [facility] [place] [facility] [address] [id number] [place] [address]- 9606 Jun, [facility] [place] [facility] [address] [id number] [place] [address]- 6857 Jun, [facility] [place] [facility] [address] [id number] [place] [address]- 9169 Jun, [facility] [place] [facility] [address] [id number] [place] [address]- 9405 Jun, [facility] [place] [facility] [address] [id number] [place] [address]- 5490 Jun, [facility] [place] [facility] [address] [id number] [place] [address]- 5741 Jun, [facility] [place] [facility] [address] [id number] [place] [address]- 4280 29 May, 2013 [facility] [place] [facility] [address] [id number] [place] [address]- 5978 29 Sep, 2013 [facility] [place] [facility] [address] [id number] [place] [address]- 2545 26 Sep, 2013 [facility] [place] [facility] [address] [id number] [place] [address]- 2546 26 Sep, 2013 [facility] [place] [facility] [address] [id number] [place] [address]- 2543 17 Sep, 2013 [facility] [place] [facility] [address] [id number] [place] [address]- 5650 17 Sep, 2013 [facility] [place] [facility] [address] [id number] [place] [address]- 9920 15 May, 2013 [facility] [place] [facility] [address] [id number] [place] [address]- 3986 15 May, 2013 [facility] [place] [facility] [address] [id number] [place] [address]- 2539 15 May, 2013 [facility] [place] [facility] [address] [id number] [place] [address]- 9387 15 May, 2013 [facility] [place] [facility] [address] [id number] [place] [address]- 4907 10 May, 2013 [facility] [place] [facility] [address] [id number] [place] [address]- 6625 10 May, 2013 [facility] [place] [facility] [address] [id number] [place] [address]- 8709 09 May, 2013 [facility] [place] [facility] [address] [id number] [place] [address]- 5066 09 May, 2013 [facility] [place] [facility] [address] [id number] [place] [address]- 1050 May, [facility] [place] [facility] [address] [id number] [place] [address]- 2491 May, [facility] [place] [facility] [address] [id number] [place] [address]- 6320 Apr, [facility] [place] [facility] [address] [id number] [place] [address]- 4877 Apr, [facility] [place] [facility] [address] [id number] [place] [address]- 7593 Apr, [facility] [place] [facility] [address] [id number] [place] [address]- 6970 Apr, [facility] [place] [facility] [address] [id number] [place] [address]- 9195 Apr, [facility] [place] [facility] [address] [id number] [place] [address]- 3358 Apr, [facility] [place] [facility] [address] [id number] [place] [address] Apr, [facility] [place] [facility] [address] [id number] [place] [address] Apr, [facility] [place] [facility] [address] [id number] [place] [address] Apr, [facility] [place] [facility] [address] [id number] [place] [address] Apr, [facility] [place] [facility] [address] [id number] [place] [address] Apr, [facility] [place] [facility] [address] [id number] [place] [address] Apr, [facility] [place] [facility] [address] [id number] [place] [address] Apr, [facility] [place] [facility] [address] [id number] [place] [address] Apr, [facility] [place] [facility] [address] [id number] [place] [address] Apr, [facility] [place] [facility] [address] [id number] [place] [address] Mar, [facility] [place] [facility] [address] [id number] [place] [address]398 Mar, [facility] [place] [facility] [address] [id number] [place] [address] Mar, [facility] [place] [facility] [address] [id number] [place] [address] Mar, [facility] [place] [facility] [address] [id number] [place] [address]- [address] Mar, [facility] [place] [facility] [address] [id number] [place] [address] Mar, [facility] [place] [facility] [address] [id number] [place] [address]- [address] Mar, 2013 [facility] [place] [facility] [address] [id number] [place] [address]- [address] Mar, [facility] [place] [facility] [address] [id number] [place] [address] Mar, 2013 [facility] [place] [facility] [address] [id number] [place] [address]- [address] Mar, 2013 [facility] [place] [facility] [address] [id number] [place] [address]- [address] Mar, 2013 [facility] [place] [facility] [address] [id number] [place] [address] Mar, 2013 [facility] [place] [facility] [address] [id number] [place] [address] Mar, 2013 [facility] [place] [facility] [address] [id number] [place] [address]40 Mar, 2013 [facility] [place] [facility] [address] [id number] [place] [address] Mar, [facility] [place] [facility] [address] [id number] [place] [address] Mar, 2013 [facility] [place] [facility] [address] [id number] [place] [address] Mar, [facility] [place] [facility] [address] [id number] [place] [address] Mar, [facility] [place] [facility] [address] [id number] [place] [address] Feb, [facility] [place] [facility] [address] [id number] [place] [address] Feb, [facility] [place] [facility] [address] [id number] [place] [address] Feb, [facility] [place] [facility] [address] [id number] [place] [address] Feb, [facility] [place] [facility] [address] [id number] [place] [address] Feb, [facility] [place] [facility] [address] [id number] [place] [address] Feb, [facility] [place] [facility] [address] [id number] [place] [address] 42[address] Feb, [facility] [place] [facility] [address] [id number] [place] [address] Feb, [facility] [place] [facility] [address] [id number] [place] [address]60 Feb, [facility] [place] [facility] [address] [id number] [place] [address] Feb, [facility] [place] [facility] [address] [id number] [place] [address]- [address] Feb, [facility] [place] [facility] [address] [id number] [place] [address] Feb, [facility] [place] [facility] [address] [id number] [place] [address] Feb, [facility] [place] [facility] [address] [id number] [place] [address]- 1769 Feb, [facility] [place] [facility] [address] [id number] [place] [address] January, [facility] [place] [facility] [address] [id number] [place] [address] January, [facility] [place] [facility] [address] [id number] [place] [address]- [address]605 January, [facility] [place] [facility] [address] [id number] [place] [address]- [address]180 January, [facility] [place] [facility] [address] [id number] [place] [address] 6[address] January, [facility] [place] [facility] [address] [id number] [place] [address]- [address]44 January, [facility] [address] [id number] [place] [address] January, [facility] [address] [id number] [place] [address] January, [facility] [address] [id number] [place] [address]- [address] January, [facility] [address] [id number] [place] [address] January, [facility] [address] [id number] [place] [address]- 6314 January, [facility] [address] [id number] [place] [address] 3213 January, [facility] [address] [id number] [place] [address] 12[address] January, [facility] [address] [id number] [place] [address]- [address] January, [facility] [address] [address] [id number] [place] [address] Dec, [facility] [address] [id number] [place] [address] 1414 Dec, [facility] [place] [facility] [address] [id number] [place] [address] Dec, [facility] [place] [facility] [address] [id number] [place] [address] 9684 Dec, [facility] [place] [facility] [address] [id number] [place] [address] 1575 Dec, [facility] [place] [facility] [address] [id number] [place] [address] 2418 Dec, [facility] [place] [facility] [address] [id number] [place] [address] 8029 Dec, [facility] [place] [facility] [address] [id number] [place] [address]- 9368 Dec, [facility] [place] [facility] [address] [id number] [place] [address] 9789 Dec, [facility] [place] [facility] [address] [id number] [place] [address] 3276 Dec, [facility] [place] [facility] [address] [id number] [place] [address] 0762 Nov, [facility] [place] [facility] [address] [id number] [place] [address]- 0988 Nov, [facility] [place] [facility] [address] [id number] [place] [address]- 0509 Nov, [facility] [place] [facility] [address] [id number] [place] [address]- 5287 Nov, [facility] [place] [facility] [address] [id number] [place] [address]- 9333 Nov, [facility] [place] [facility] [address] [id number] [place] [address]- 2775 Nov, [facility] [place] [facility] [address] [id number] [place] [address]- 0828 Nov, [facility] [place] [facility] [address] [id number] [place] [address]- 5460 Nov, [facility] [place] [facility] [address] [id number] [place] [address]- 1424 Nov, [facility] [place] [facility] [address] [id number] [place] [address]- 3818 Nov, [facility] [place] [facility] [address] [id number] [place] [address]- 3176 Oct, [facility] [place] [facility] [address] [id number] [place] [address] Oct, [facility] [place] [facility] [address] [id number] [place] [address]- 7715 Oct, [facility] [place] [facility] [address] [id number] [place] [address]- 4586 Oct, [facility] [place] [facility] [address] [id number] [place] [address]- 0926 Oct, [facility] [place] [facility] [address] [id number] [place] [address]- 1461 Oct, [facility] [place] [facility] [address] [id number] [place] [address] 1956 Oct, [facility] [place] [facility] [address] [id number] [place] [address]- 6673 Oct, [facility] [place] [facility] [address] [facility] [id number] [place] [address]- 7031 Oct, [facility] [place] [facility] [address] [id number] [place] [address]- 2242 Oct, [facility] [place] [facility] [address] [id number] [place] [address]- 6291 Oct, [facility] [place] [facility] [address] [facility] [id number] [place] [address]- 2802 Oct, [facility] [place] [facility] [address] [facility] [id number] [place] [address]- 2720 Oct, [facility] [place] [facility] [address] [facility] [id number] [place] [address]- 0209 Oct, [facility] [place] [facility] [address] [id number] [place] [address]- 0073 Sep, [facility] [place] [facility] [address] [id number] [place] [address]- 6312 Sep, [facility] [place] [facility] [address] [id number] [place] [address]- 8467 Sep, [facility] [place] [facility] [address] [facility] [id number] [place] [address]- 1910 15 Sep, 2013 [facility] [place] [facility] [address] [id number] [place] [address]- 8990 14 Sep, 2013 [facility] [place] [facility] [address] [id number] [place] [address]- 7030 14 Sep, 2013 [facility] [place] [facility] [address] [id number] [place] [address]- 7164 14 Sep, 2013 [facility] [place] [facility] [address] [id number] [place] [address]- 9592 Sep, [facility] [place] [facility] [address] [id number] [place] [address]- 5222 Sep, [facility] [place] [facility] [address] [id number] [place] [address]- 3765 Sep, [facility] [place] [facility] [address] [id number] [place] [address]- 2993 10 Aug, 2013 [facility] [place] [facility] [address] [id number] [place] [address]- 7518 Aug, [facility] [place] [facility] [address] [id number] [place] [address]- 3281 Jul, [facility] [place] [facility] [address] [id number] [place] [address]- 5960 Jul, [facility] [place] [facility] [address] [id number] [place] [address] 5316 Jul, [facility] [place] [facility] [address] [id number] [place] [address]- 5303 Jul, [facility] [place] [facility] [address] [id number] [place] [address]- 2361 Jul, [facility] [place] [facility] [address] [id number] [place] [address]- 0779 Jul, [facility] [place] [facility] [address] [id number] [place] [address]- 9492 Jul, [facility] [place] [facility] [address] [id number] [place] [address]- 2617 12 Jul, 2012 [facility] [address] [id number] [place] [address]- 9000 Jul, [facility] [place] [facility] [address] [id number] [place] [address]- 0643 08 Jul, 2013 [facility] [address] [id number] [place] [address]- 4640 Jul, 2012 [facility] [place] [facility] [address] [id number] [place] [address]- 7127 Jul, 2012 [facility] [place] [facility] [address] [id number] [place] [address]- 0472 Jul, [facility] [place] [facility] [address] [id number] [place] [address]- 3170 Jul, [facility] [place] [facility] [address] [id number] [place] [address]- 6900 Jul, [facility] [place] [facility] [address] [id number] [place] [address]- 5376 Jul, [facility] [place] [facility] [address] [id number] [place] [address]- 6905 Jul, [facility] [place] [facility] [address] [facility] [id number] [place] [address]- 1851 Jul, [facility] [place] [facility] [address] [id number] [place] [address]- 1388 Jul, [facility] [place] [facility] [address] [id number] [place] [address]- 3525 Jun, [facility] [place] [facility] [address] [id number] [place] [address]- 3331 Jun, [facility] [place] [facility] [address] [id number] [place] [address]- 6064 Jun, [facility] [place] [facility] [address] [id number] [place] [address]- 9133 Jun, [facility] [place] [facility] [address] [id number] [place] [address]- 0561 16 Jun, 2012 [facility] [place] [facility] [address] [id number] [place] [address]- 0495 16 Jun, 2012 [facility] [place] [facility] [address] [id number] [place] [address]- 4325 10 Jun, 2012 [facility] [place] [facility] [address] [id number] [place] [address]- 9489 10 Jun, 2012 [facility] [place] [facility] [address] [id number] [place] [address]- 2357 09 Jun, 2012 [facility] [place] [facility] [address] [id number] [place] [address]- 2778 09 Jun, 2013 [facility] [place] [facility] [address] [id number] [place] [address]- 8137 Jun, [facility] [place] [facility] [address] [id number] [place] [address]- 4904 26 Sep, 2012 [facility] [place] [facility] [address] [id number] [place] [address]- 3811 25 Sep, 2012 [facility] [place] [facility] [address] [id number] [place] [address]- 1481 19 Sep, 2012 [facility] [place] [facility] [address] [id number] [place] [address]- 7486 17 Sep, 2012 [facility] [place] [facility] [address] [id number] [place] [address]- 5348 11 Sep, 2012 [facility] [place] [facility] [address] [id number] [place] [address]- 5512 10 Sep, 2012 [facility] [place] [facility] [address] [id number] [place] [address]- 3956 09 Sep, 2012 [facility] [place] [facility] [address] [id number] [place] [address]- 3932 05 Sep, 2012 [facility] [place] [facility] [address] [id number] [place] [address]- 8178 Apr, [facility] [place] [facility] [address] [id number] [place] [address]- 1255 Apr, [facility] [place] [facility] [address] [id number] [place] [address]- 8442 Apr, [facility] [place] [facility] [address] [id number] [place] [address]- 5560 Apr, [facility] [place] [facility] [address] [id number] [place] [address]- 1769 Apr, [facility] [place] [facility] [address] [id number] [place] [address]- 5428 Mar, [facility] [place] [facility] [address] [id number] [place] [address]- 3364 Mar, [facility] [place] [facility] [address] [id number] [place] [address]- 4058 Mar, [facility] [place] [facility] [address] [id number] [place] [address]- 2175 Mar, [facility] [place] [facility] [address] [id number] [place] [address]- 1200 Mar, [facility] [place] [facility] [address] [id number] [place] [address]- 2429 Mar, [facility] [place] [facility] [address] [id number] [place] [address]- 2589 Mar, [facility] [place] [facility] [address] [id number] [place] [address]- 4353 Mar, [facility] [place] [facility] [address] [id number] [place] [address]- 3548 Feb, [facility] [place] [facility] [address] [id number] [place] [address]- 1541 Feb, [facility] [place] [facility] [address] [id number] [place] [address]- 1724 January, [facility] [place] [facility] [address] [id number] [place] [address]- 9226 January, [facility] [address] [id number] [place] [address]- 0821 Dec, [facility] [place] [facility] [address] [id number] [place] [address]- 5728 Dec, [facility] [address] [id number] [place] [address]- 6107 Nov, [facility] [place] [facility] [address] [id number] [place] [address]- 1351 Nov, [facility] [place] [facility] [address] [id number] [place] [address]- 8231 Nov, [facility] [place] [facility] [address] [facility] [id number] [place] [address]- 1293 Nov, [facility] [place] [facility] [address] [id number] [place] [address]- 8157 Oct, [facility] [address] [id number] [place] [address]- 4590 Oct, [facility] [place] [facility] [address] [facility] [id number] [place] [address]- 2533 Oct, [facility] [place] [facility] [address] [facility] [id number] [place] [address]- 3588 Oct, [facility] [place] [facility] [address] [facility] [id number] [place] [address]- 8941 16 Oct, 2012 [facility] [place] [facility] [address] [facility] [id number] [place] [address]- 9246 14 Oct, 2012 [facility] [place] [facility] [address] [id number] [place] [address]- 6620 08 Oct, 2012 [facility] [place] [facility] [address] [facility] [id number] [place] [address]- 6979 07 Oct, 2012 [facility] [place] [facility] [address] [facility] [id number] [place] [address]- 8181 Oct, [facility] [address] [id number] [place] [address]- 5167 30 Sep, 2012 [facility] [address] [id number] [place] [address]- 8205 Sep, [facility] [address] [id number] [place] [address]- 2718 Sep, [facility] [address] [id number] [place] [address]- 0099 Sep, [facility] [address] [id number] [place] [address]- 0865 Sep, [facility] [address] [id number] [place] [address]- 4227 Sep, [facility] [address] [facility] [id number] [place] [address]- 7674 Sep, [facility] [address] [id number] [place] [address]- 1157 Sep, [facility] [address] [facility] [id number] [place] [address]- 4915 31 Aug, 2012 [facility] [address] [facility] [id number] [place] [address]- 0001 31 Aug, 2012 [facility] [address] [id number] [place] [address]- 6197 Aug, [facility] [place] [facility] [address] [id number] [place] [address]- 0083 Aug, [facility] [place] [facility] [address] [id number] [place] [address]- 8827 Aug, [facility] [place] [facility] [address] [id number] [place] [address]- 3237 Aug, [facility] [address] [facility] [id number] [place] [address]- 3407 18 Aug, 2012 [facility] [place] [facility] [address] [id number] [place] [address]- 6239 Aug, [facility] [place] [facility] [address] [id number] [place] [address]- 7208 Jul, [facility] [place] [facility] [address] [id number] [place] [address]- 0174 Jul, [facility] [place] [facility] [address] [id number] [place] [address]- 3940 Jul, [facility] [place] [facility] [address] [id number] [place] [address]- 1689 Jul, [facility] [place] [facility] [address] [id number] [place] [address]- 2924 Jul, [facility] [place] [facility] [address] [id number] [place] [address]- 2642 Jul, [facility] [place] [facility] [address] [id number] [place] [address]- 1098 Jun, [facility] [place] [facility] [address] [id number] [place] [address]- 4993 Jun, [facility] [place] [facility] [address] [id number] [place] [address]- 9408 Jun, [facility] [place] [facility] [address] [facility] [id number] [place] [address]- 4981 Jun, [facility] [place] [facility] [address] [id number] [place] [address]- 1635 Jun, [facility] [place] [facility] [address] [id number] [place] [address]- 8257 Jun, [facility] [place] [facility] [address] [id number] [place] [address]- 3224 Jun, [facility] [place] [facility] [address] [id number] [place] [address]- 7152 Jun, [facility] [place] [facility] [address] [id number] [place] [address]- 3082 Jun, [facility] [place] [facility] [address] [id number] [place] [address]- 1396 26 May, 2012 [facility] [place] [facility] [address] [id number] [place] [address]- 8957 24 May, 2012 [facility] [place] [facility] [address] [id number] [place] [address]- 6819 May, [facility] [place] [facility] [address] [id number] [place] [address]- 8465 Apr, [facility] [place] [facility] [address] [id number] [place] [address]- 3380 Apr, [facility] [place] [facility] [address] [id number] [place] [address]- 5986 Apr, [facility] [place] [facility] [address] [id number] [place] [address]- 2603 Apr, [facility] [place] [facility] [address] [id number] [place] [address]- 4810 Apr, [facility] [place] [facility] [address] [id number] [place] [address]- 3407 Apr, [facility] [place] [facility] [address] [id number] [place] [address]- 1764 Mar, [facility] [place] [facility] [address] [id number] [place] [address]- 6195 Mar, [facility] [place] [facility] [address] [id number] [place] [address]- 9413 Mar, [facility] [place] [facility] [address] [id number] [place] [address]- 1347 Mar, [facility] [place] [facility] [address] [id number] [place] [address]- 1928 Feb, [facility] [place] [facility] [address] [id number] [place] [address]- 6736 Feb, [facility] [place] [facility] [address] [id number] [place] [address]- 6968 Feb, [facility] [address] [id number] [place] [address]- 1169 Feb, [facility] [place] [facility] [address] [id number] [place] [address]- 9040 Feb, [facility] [address] [id number] [place] [address]- 7428 January, [facility] [place] [facility] [address] [id number] [place] [address]- 9266 January, [facility] [address] [id number] [place] [address]- 3264 January, [facility] [place] [facility] [address] [id number] [place] [address]- 2291 January, [facility] [address] [id number] [place] [address]- 0806 January, [facility] [address] [id number] [place] [address]- 5433 January, [facility] [place] [facility] [address] [id number] [place] [address]- 6004 Dec, [facility] [place] [facility] [address] [id number] [place] [address]- 9242 Dec, [facility] [place] [facility] [address] [id number] [place] [address]- 4199 Dec, [facility] [place] [facility] [address] [id number] [place] [address]- 0236 Dec, [facility] [place] [facility] [address] [id number] [place] [address]- 6098 Dec, [facility] [place] [facility] [address] [id number] [place] [address]- 2532 Nov, [facility] [place] [facility] [address] [id number] [place] [address]- 9062 Nov, [facility] [place] [facility] [address] [id number] [place] [address]- 2246 Nov, [facility] [place] [facility] [address] [id number] [place] [address]- 1165 Nov, [facility] [place] [facility] [address] [id number] [place] [address]- 2476 29 Oct, 2011 [facility] [place] [facility] [address] [id number] [place] [address]- 2898 28 Oct, 2011 [facility] [place] [facility] [address] [id number] [place] [address] 24 Oct, 2011 [facility] [place] [facility] [address] [id number] [place] [address] Oct, [facility] [place] [facility] [address] [id number] [place] [address] Oct, [facility] [place] [facility] [address] [id number] [place] [address] Sep, [facility] [place] [facility] [address] [id number] [place] [address] Sep, [facility] [place] [facility] [address] [id number] [place] [address] Sep, [facility] [place] [facility] [address] [id number] [place] [address] Sep, [facility] [place] [facility] [address] [id number] [place] [address] Sep, [facility] [place] [facility] [address] [id number] [place] [address] Sep, [facility] [place] [facility] [address] [id number] [place] [address] Aug, [facility] [place] [facility] [address] [id number] [place] [address] Aug, [facility] [place] [facility] [address] [id number] [place] [address] Aug, [facility] [place] [facility] [address] [id number] [place] [address] Jul, [facility] [place] [facility] [address] [id number] [place] [address] Jul, [facility] [place] [facility] [address] [facility] [id number] [place] [address] Jul, [facility] [place] [facility] [address] [id number] [place] [address] Jul, [facility] [place] [facility] [address] [facility] [id number] [place] [address] Jun, [facility] [place] [facility] [address] [id number] [place] [address] Jun, [facility] [place] [facility] [address] [facility] [id number] [place] [address] Jun, [facility] [place] [facility] [address] [facility] [id number] [place] [address] Jun, [facility] [place] [facility] [address] [facility] [id number] [place] [address] 16[address] Jun, [facility] [place] [facility] [address] [facility] [id number] [place] [address] Jun, [facility] [place] [facility] [address] [facility] [id number] [place] [address] Mar, [facility] [place] [facility] [address] [id number] [place] [address] Dec, [facility] [place] [facility] [address] [id number] [place] [address] Dec, [facility] [place] [facility] [address] [facility] [id number] [place] [address] Nov, [facility] [place] [facility] [address] [facility] [id number] [place] [address] 16 Nov, 2010 [facility] [place] [facility] [address] [id number] [place] [address] 10 Sep, 2010 [facility] [place] [facility] [address] [id number] [place] [address] 31 Aug, 2010 [facility] [place] [facility] [address] [id number] [place] [address] 2546 Aug, [facility] [place] [facility] [address] [id number] [place] [address] 2546 29 Aug, 2010 [facility] [place] [facility] [address] [id number] [place] [address] 2546 29 Aug, 2010 [facility] [place] [facility] [address] [id number] [place] [address] 2546 27 Aug, 2010 [facility] [place] [facility] [address] [id number] [place] [address]146 14 Aug, 2010 [facility] [place] [facility] [address] [id number] [place] [address] 97[address] 08 Aug, 2010 [facility] [place] [facility] [address] [id number] [place] [address] 2547 08 Aug, 2010 [facility] [place] [facility] [address] [id number] [place] [address] 2546 Aug, [facility] [place] [facility] [address] [id number] [place] [address] 2546 06 Aug, 2010 [facility] [place] [facility] [address] [id number] [place] [address] 2546 Aug, [facility] [place] [facility] [address] [id number] [place] [address] 2546 Aug, [facility] [place] [facility] [address] [id number] [place] [address] 2546 Jul, [facility] [place] [facility] [address] [id number] [place] [address] 2546 Jul, [facility] [place] [facility] [address] [id number] [place] [address] 30 Jul, 2010 [facility] [place] [facility] [address] [id number] [place] [address]- 95[address] 17 Jul, 2010 [facility] [place] [facility] [address] [id number] [place] [address]- 6[address] 08 Jul, 2010 [facility] [place] [facility] [address] [id number] [place] [address]84 Jul, [facility] [place] [facility] [address] [id number] [place] [address]- 7294 24 Jun, 2010 [facility] [place] [facility] [address] [id number] [place] [address] Jun, [facility] [place] [facility] [address] [id number] [place] [address]- 9810 Jun, [facility] [place] [facility] [address] [id number] [place] [address] 9[address] Jun, [facility] [place] [facility] [address] [id number] [place] [address] 16 Apr, 2010 [facility] [place] [facility] [address] [id number] [place] [address] Mar, [facility] [place] [facility] [address] [id number] [place] [address] Feb, [facility] [place] [facility] [address] [id number] [place] [address] January, [facility] [place] [facility] [address] [id number] [place] [address] 29[address] 15 Dec, 2009 [facility] [place] [facility] [address] [id number] [place] [address]- 90[address] Nov, [facility] [place] [facility] [address] [id number] [place] [address] 29[address] 31 Aug, 2009 [facility] [place] [facility] [address] [id number] [place] [address]- 0542 Aug, [facility] [place] [facility] [id number] [address] 07 Aug, 2009 [facility] [id number] [address] Jul, [facility] [id number] [place] [address] 138[address] Jul, [facility] [id number] [place] [address] Jul, [facility] [address] [facility] [id number] [place] [address] Jun, [facility] [id number] [place] [address] Jun, [facility] [address] [id number] [address] Jun, [facility] [id number] [place] [address] 1394 Jun, [facility] [id number] [address]- [address] Jun, [facility] [id number] [place], [place] [address] Jun, [facility] [id number] [address] Apr, [facility] [id number] [address] Apr, [facility] [id number] [address] Feb, [facility] [id number] [address] January, [facility] [id number] [address] Dec, IMMUNIZATIONS No Known Immunizations SOCIAL HISTORY Never Assessed REASON FOR VISIT f/u, Depression. PLAN OF CARE Activity Details Follow Up 1 Week Reason:depression VITAL SIGNS MEDICATIONS Unknown Medications RESULTS No Results PROCEDURES Procedure Date Ordered Result Body Site [facility] VISIT MENTAL HEALTH ESTAB PT December 27, 2017 Psychotherapy, patient &/family, 45 minutes, established patient December 27, 2017 INSTRUCTIONS MEDICATIONS ADMINISTERED No Known [...] tunnel release (Left) 2000 Surgical History EGD ([facility]) 2009 Surgical History colonoscopy 2009 ([facility]), 2013 ([place]) Surgical History heart cath: CAD w/ PTCA [...] to urinate 09/16/15 Hospitalization History [facility] early Hospitalization History hyperkalemia 10/2017 Hospitalization History fluid in lung
--- OUTSIDE RECORDS SUMMARY | 2018-08-08 14:28 | XMS REPORT ---
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 Name Role Phone ROSELINE LUIS Unavailable PROBLEMS Type Condition ICD9-CM Code KCP93-YB Code Onset Dates Condition Status SNOMED Code Problem Chronic lymphocytic leukemia C91.10 Active 89966391 Problem Insomnia, unspecified type G47.00 Active 350230396 Problem Lymphocytosis D72.820 Active 00576943 Problem Anxiety F41.9 Active 55888715 Problem Eye exam abnormal R93.8 Active 266579209 Problem Morbid obesity E66.01 Active 062224805 Problem Diabetic polyneuropathy associated with type 2 diabetes mellitus E11.42 Active 39135616 Problem Essential hypertension I10 Active 77247546 Problem Falling R29.6 Active 381955833 Problem 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 Active 570689879 Problem Cough R05 Active 23894283 Problem Dysuria R30.0 Active 20756259 Problem Eustachian tube dysfunction, unspecified laterality H69.80 Active 91623476 Problem Bilateral primary osteoarthritis of knee M17.0 Active 854090846 Problem Polyneuropathy associated with underlying disease G63 Active 670504569 Problem Anemia of chronic illness D63.8 Active 001620402 Problem Retinal edema H35.81 Active 9268480 Problem DM neuro manif type II E11.49 Active 07762695 Problem Diabetes E11.9 Active 96851457 Problem Hypokalemia E87.6 Active 07913567 Problem Benign prostatic hyperplasia with lower urinary tract symptoms, unspecified morphology N40.1 Active 433641174 Problem Reactive airway disease J45.909 Active 803772269488 Problem Bipolar I disorder, most recent episode (or current) mixed, moderate F31.62 Active 95177555 Problem Chronic pain G89.29 Active 86619663 Problem Leukocytosis D72.829 Active 733686748 ALLERGIES No Information ENCOUNTERS Encounter Location Date Diagnosis [facility] [id number] [address] Apr, [facility] [address] [address] Apr, [facility] [address] [address] 99[address] Apr, [facility] [address] [address] Mar, [facility] [address] [address] 0[address] Mar, [facility] [id number] [place] [address] 82937- 1173 Mar, Bipolar I disorder, most recent episode (or current) mixed, moderate F31.62 [facility] [address] [address] Mar, Bipolar I disorder, most recent episode (or current) mixed, moderate F31.62 [facility] [address] [address] 22[address] Mar, Chronic pain G89.29 [facility] [address] [address] 9065 Mar, Bipolar I disorder, most recent episode (or current) mixed, moderate F31.62 [facility] [address], [place] [address] 4[address] Feb, Bipolar I disorder, most recent episode (or current) mixed, moderate F31.62 [facility] [address] [address] 44[address] Feb, Chronic pain G89.29 [facility] [address] [address] 06 Feb, 2018 Decubitus ulcer of right foot, stage 3 L89.893 and BMI 50.0- 59.9, adult Z68.43 [facility] [id number] [place] [address] 05146- 1374 Feb, Bipolar I disorder, most recent episode (or current) mixed, moderate F31.62 [facility] [id number] [place] [address] 34667- 6979 Feb, [facility] [id number] [place] [address] 02255- 3380 January, [facility] [id number] [place] [address] 81946- 1800 January, Chronic pain G89.29 [facility] [id number] [place] [address] 05408- 9385 January, Bipolar I disorder, most recent episode (or current) mixed, moderate F31.62 [facility] [id number] [place] [address] 48876- 3452 January, Bipolar I disorder, most recent episode (or current) mixed, moderate F31.62 [facility] [id number] [place] [address] 29679- 2730 Dec, Bipolar I disorder, most recent episode (or current) mixed, moderate F31.62 and BMI 50.0-59.9, adult Z68.43 [facility] [id number] [place] [address] 77153- 0933 Dec, Bipolar I disorder, most recent episode (or current) mixed, moderate F31.62 [facility] [id number] [place] [address] 20683- 3064 Dec, Chronic pain G89.29 [facility] [id number] [place] [address] 17749- 4021 18 Dec, 2017 DM neuro manif type II E11.49 ; Right flank pain R10.9 ; longterm 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 Z79.891 ; Encounter for medication monitoring Z51.81 and BMI 50.0-59.9, adult Z68.43 [facility] [id number] [place] [address] 59686- 4051 Dec, Bipolar I disorder, most recent episode (or current) mixed, moderate F31.62 [facility] [id number] [place] [address] 56702- 4791 Nov, Bipolar I disorder, most recent episode (or current) mixed, moderate F31.62 [facility] [id number] [place] [address] 42327- 2946 Nov, Chronic pain G89.29 [facility] [id number] [place] [address] 79333 2545 Nov, Bipolar I disorder, most recent episode (or current) mixed, moderate F31.62 [facility] [id number] [place] [address] 80793- 6222 Nov, Hypokalemia E87.6 [facility] [id number] [place] [address] 90631- 2049 Nov, Bipolar I disorder, most recent episode (or current) mixed, moderate F31.62 [facility] [id number] [place] [address] 98621- 3604 Oct, Chronic pain G89.29 [facility] [id number] [place] [address] 15873- 8796 Oct, BMI 50.0-59.9, adult Z68.43 and Bipolar I disorder, most recent episode (or current) mixed, moderate F31.62 [facility] [address] [place] [address] 30738- 4989 Oct, Bipolar I disorder, most recent episode (or current) mixed, moderate F31.62 [facility] [id number] [place] [address] 38762- 8872 Oct, [facility] [id number] [place] [address] 54761- 6775 Oct, Hypokalemia E87.6 [facility] [address] [place] [address]- 1702 Oct, DM neuro manif type II E11.49 [facility] [address] 20739- 7262 Oct, Bipolar I disorder, most recent episode (or current) mixed, moderate F31.62 [facility] [address] 42669- 1251 Oct, Bipolar I disorder, most recent episode (or current) mixed, moderate F31.62 [facility] [address] 66832- 4754 14 Oct, 2017 Hyperkalemia E87.5 ; Falling R29.6 ; BMI 50.0-59.9, adult Z68.43 and Acute left ankle pain M25.572 [facility] [address] 90246- 1209 Oct, DM neuro manif type II E11.49 [facility] [address] 91052- 8956 Oct, [facility] [address] 23854- 2957 Sep, Chronic pain G89.29 [facility] [address] 59785- 4489 Sep, [facility] [address] 70069- 3863 Sep, Bilateral primary osteoarthritis of knee M17.0 [facility] [address] 39547- 8405 Sep, Generalized edema R60.1 [facility] [address] 19052- 3083 Sep, Bipolar I disorder, most recent episode (or current) mixed, moderate F31.62 [facility] [address] 82872- 1020 Sep, Hypoxia R09.02 ; Other hypervolemia E87.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 ; Anemia of chronic illness D63.8 and BMI 50.0- 59.9, adult Z68.43 [facility] [id number] [place] [address] 54690- 3652 Sep, [facility] [address] 09858- 2232 Sep, Bipolar I disorder, most recent episode (or current) mixed, moderate F31.62 [facility] [address] 25959- 5310 Aug, Chronic pain G89.29 [facility] [id number] [place] [address] 94258- 1507 Aug, Generalized edema R60.1 [facility] [address] 19683- 9750 Aug, [facility] [id number] [place] [address] 80377- 4274 Aug, [facility] [id number] [place] [address] 07440- 0379 Aug, Bipolar I disorder, most recent episode (or current) mixed, moderate F31.62 [facility] [id number] [place] [address] 10465- 8231 Aug, Bipolar I disorder, most recent episode (or current) mixed, moderate F31.62 [facility] [id number] [place] [address] 95125- 7605 Aug, Chronic pain G89.29 [facility] [id number] [place] [address] 08611- 2953 Jul, Bipolar I disorder, most recent episode (or current) mixed, moderate F31.62 [facility] [id number] [address]- 1404 Jul, Bipolar I disorder, most recent episode (or current) mixed, moderate F31.62 and BMI 60.0-69.9, adult Z68.44 [facility] [id number] [place] [address] 64446- 0173 Jul, Bipolar I disorder, most recent episode (or current) mixed, moderate F31.62 [facility] [id number] [place] [address] 97801- 4769 Jul, Chronic pain G89.29 [facility] [id number] [place] [address] 31917- 1451 Jul, Bipolar I disorder, most recent episode (or current) mixed, moderate F31.62 [facility] [id number] [place] [address] 74905- 8264 Jun, Polyneuropathy associated with underlying disease G63 and Diabetes E11.9 [facility] [id number] [place] [address] 94421- 4865 Jun, Bipolar I disorder, most recent episode (or current) mixed, moderate F31.62 [facility] [id number] [place] [address] 77823- 1202 Jun, Chronic pain G89.29 [facility] [address] [place] [address] 70357- 9455 May, Bipolar I disorder, most recent episode (or current) mixed, moderate F31.62 [facility] [id number] [place] [address] 47973- 4476 May, Bipolar I disorder, most recent episode (or current) mixed, moderate F31.62 [facility] [id number] [place] [address] 64548- 1282 May, Diabetic polyneuropathy associated with type 2 diabetes mellitus E11.42 [facility] [id number] [place] [address] 54251- 8966 18 May, 2017 Bipolar I disorder, most recent episode (or current) mixed, moderate F31.62 [facility] [id number] [place] [address] 25203- 9699 13 May, 2017 Bipolar I disorder, most recent episode (or current) mixed, moderate F31.62 [facility] [id number] [place] [address] 51870- 4093 12 May, 2017 Chronic pain G89.29 [facility] [address] 274000- 0034 Apr, Bipolar I disorder, most recent episode (or current) mixed, moderate F31.62 [facility] [address] 74447- 5028 Apr, [facility] [address] 57052- 0595 Apr, Chronic pain G89.29 and DM neuro manif type II E11.49 [facility] [address] 96767- 9751 Apr, [facility] [address] 773336- 4248 Apr, Bipolar I disorder, most recent episode (or current) mixed, moderate F31.62 [facility] [id number] [place] [address] 34395- 0826 Apr, Chronic pain G89.29 [facility] [id number] [place] [address] 12774- 0133 Apr, Iliotibial band syndrome, left M76.32 [facility] [id number] [place] [address] 51059- 0761 Apr, Bipolar I disorder, most recent episode (or current) mixed, moderate F31.62 [facility] [id number] [place] [address] 02712- 5066 Mar, Bipolar I disorder, most recent episode (or current) mixed, moderate F31.62 [facility] [address], [place] [address]- 8595 Mar, Bipolar I disorder, most recent episode (or current) mixed, moderate F31.62 [facility] [address], [place] [address]- 7082 Mar, [facility] [address] [place] [address] 73986- 5177 Mar, Bipolar I disorder, most recent episode (or current) mixed, moderate F31.62 [facility] [address] [place] [address] 12963- 1215 Mar, Chronic pain G89.29 [facility] [address] [place] [address] 85986- 2401 Mar, Bipolar I disorder, most recent episode (or current) mixed, moderate F31.62 [facility] [id number] [place] [address] 78845- 9762 Mar, Bipolar I disorder, most recent episode (or current) mixed, moderate F31.62 [facility] [id number] [place] [address] 23135- 8147 Mar, Acute pain of left knee M25.562 ; Left hip pain M25.552 ; Generalized edema R60.1 and Tongue swelling R22.0 [facility] [address] [place] [address] 69884- 6178 Mar, [facility] [id number] [place] [address] 80537- 7844 Feb, Chronic pain G89.29 [facility] [id number] [place] [address] 22357- 4368 Feb, Diabetes E11.9 [facility] [address] [place] [address] 47681- 8842 January, Chronic pain G89.29 [facility] [id number] [place] [address] 40833- 4725 January, [facility] [address], [place] [address]- 6967 January, Bipolar I disorder, most recent episode (or current) mixed, moderate F31.62 [facility] [id number] [place] [address] 28747- 4170 Dec, Bipolar I disorder, most recent episode (or current) mixed, moderate F31.62 [facility] [id number] [place] [address] 97940- 1263 Dec, Chronic pain G89.29 [facility] [id number] [place] [address] 59512- 7551 Dec, Bipolar I disorder, most recent episode (or current) mixed, moderate F31.62 [facility] [id number] [place] [address] 48888- 7697 Dec, Diabetes E11.9 ; Essential hypertension I10 ; Chronic pain G89.29 and Morbid obesity E66.01 [facility] [address], [place] [address]- 9098 Dec, [facility] [id number] [place] [address] 59030- 3719 Dec, Bipolar I disorder, most recent episode (or current) mixed, moderate F31.62 [facility] [address], [place] [address]- 4257 Dec, Bipolar I disorder, most recent episode (or current) mixed, moderate F31.62 [facility] [address] [place] [address] 56494- 0375 Nov, Chronic pain G89.29 [facility] [id number] [place] [address] 01271- 6221 Nov, Bipolar I disorder, most recent episode (or current) mixed, moderate F31.62 [facility] [address] [place] [address] 72246- 8427 Nov, [facility] [address], [place] [address]- 8209 Nov, Bipolar I disorder, most recent episode (or current) mixed, moderate F31.62 [facility] [address], [place] [address]- 9846 Nov, Bipolar I disorder, most recent episode (or current) mixed, moderate F31.62 [facility] [address] [place] [address] 56784- 2094 Nov, [facility] [address] [address]- 0230 Nov, [facility] [address] [place] [address] 01029- 2410 Nov, [facility] [id number] [place] [address] 09348- 3015 Oct, Chronic pain G89.29 [facility] [address], [place] [address]- 6771 Oct, Bipolar I disorder, most recent episode (or current) mixed, moderate F31.62 [facility] [address], [place] [address]- 2035 Oct, [facility] [address], [place] [address]- 3975 Oct, Chronic pain G89.29 ; Diabetes E11.9 ; Anxiety F41.9 and 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 [facility] [address], [place] [address]- 7276 Oct, [facility] [address], [place] [address]- 8322 Oct, Diabetes E11.9 [facility] [address], [place] [address]- 0927 Oct, Bipolar I disorder, most recent episode (or current) mixed, moderate F31.62 [facility] [address], [place] [address]- 8725 Sep, Chronic pain G89.29 [facility] [id number] [place] [address] 78896- 0365 Sep, Chronic pain G89.29 [facility] [id number] [place] [address] 69431- 1406 Aug, Chronic pain G89.29 [facility] [id number] [place] [address] 37127- 9858 Jul, [facility] [id number] [place] [address] 56162- 1510 Jul, Diabetes E11.9 [facility] [id number] [place] [address] 15647- 8856 Jul, Chronic pain G89.29 [facility] [id number] [place] [address] 38098- 2228 Jul, Bipolar I disorder, most recent episode (or current) mixed, moderate F31.62 [facility] [id number] [place] [address] 21589- 0589 Jun, Bipolar I disorder, most recent episode (or current) mixed, moderate F31.62 [facility] [id number] [place] [address] 08473- 0825 Jun, [facility] [id number] [place] [address] 58606- 7190 Jun, Bipolar I disorder, most recent episode (or current) mixed, moderate F31.62 [facility] [id number] [place] [address] 40640- 2256 May, Insomnia, unspecified type G47.00 [facility] [id number] [place] [address] 89597- 7809 May, Bipolar I disorder, most recent episode (or current) mixed, moderate F31.62 [facility] [address], [place] [address]- 3418 14 May, 2016 [facility] [id number] [place] [address] 72343- 4966 08 May, 2016 Bipolar I disorder, most recent episode (or current) mixed, moderate F31.62 [facility] [id number] [place] [address] 69455- 2880 06 May, 2016 Diabetes E11.9 and Essential hypertension I10 [facility] [id number] [place] [address] 62860- 7252 Apr, Chronic pain G89.29 [facility] [id number] [place] [address] 45303- 5166 Apr, Bipolar I disorder, most recent episode (or current) mixed, moderate F31.62 [facility] [id number] [place] [address] 01692- 1015 Apr, [facility] [id number] [place] [address] 53265- 7812 Apr, [facility] [id number] [place] [address] 71865- 3848 Mar, Chronic pain G89.29 ; Headache, unspecified headache type R51 ; Neuropathy G62.9 ; Pain of right hip joint M25.551 and Essential hypertension I10 [facility] [address] [place] [address] 67586- 1209 Mar, Chronic pain G89.29 [facility] [address] [place] [address] 29892- 9951 Mar, Bipolar I disorder, most recent episode (or current) mixed, moderate F31.62 [facility] [id number] [place] [address] 83008- 8029 Feb, Bipolar I disorder, most recent episode (or current) mixed, moderate F31.62 and Insomnia, unspecified type G47.00 [facility] [id number] [place] [address] 45327- 7111 Feb, Chronic pain G89.29 [facility] [id number] [place] [address] 55966- 2582 Feb, Bipolar I disorder, most recent episode (or current) mixed, moderate F31.62 [facility] [id number] [place] [address] 97806- 1122 January, Bipolar I disorder, most recent episode (or current) mixed, moderate F31.62 [facility] [id number] [place] [address] 32528- 9567 January, Chronic pain G89.29 [facility] [id number] [place] [address] 14231- 5460 January, Chronic pain G89.29 and Essential hypertension I10 [facility] [id number] [place] [address] 70602- 8883 January, Bipolar I disorder, most recent episode (or current) mixed, moderate F31.62 [facility] [id number] [place] [address] 70318- 8194 Dec, [facility] [id number] [place] [address] 34405- 7451 Dec, [facility] [id number] [place] [address] 21254- 5312 Dec, [facility] [id number] [place] [address] 75533- 1108 Dec, [facility] [id number] [place] [address] 65154- 8077 Nov, Reactive airway disease J45.909 [facility] [id number] [place] [address] 05640- 0467 Nov, [facility] [id number] [place] [address] 89649- 1227 Nov, [facility] [id number] [place] [address] 13743- 0892 Nov, [facility] [address] 71125- 3976 Nov, [facility] [id number] [place] [address] 75728- 4928 Nov, Onychomycosis B35.1 ; Hammertoe M20.40 ; Sunset or callus L84 and DM neuro manif type II E11.49 [facility] [id number] [place] [address] 97285- 8624 Nov, Chronic pain G89.29 ; Leukocytosis D72.829 and Diabetes E11.9 [facility] [id number] [place] [address] 75173- 5467 Nov, [facility] [address] [address] Oct, Bronchitis J40 [facility] [id number] [place] [address]- [address] Oct, [facility] [place] [address] [address] Oct, [facility] [id number] [place] [address] Oct, Mastoiditis, unspecified laterality H70.90 and Type 2 diabetes mellitus with complication E11.8 [facility] [id number] [place] [address] 23[address]- 92[address] Sep, [facility] [id number] [place] [address]- 3383 Sep, Dysuria R30.0 ; Cough R05 ; Benign prostatic hyperplasia with lower urinary tract symptoms, unspecified morphology N40.1 ; Hypokalemia E87.6 and Eustachian tube dysfunction, unspecified laterality H69.80 [place] [address] [address]75- 8336 Sep, Moderate mixed bipolar I disorder F31.62 [facility] [id number] [place] [address] 23473- 8123 Sep, Hypokalemia E87.6 [facility] [id number] [place] [address] 68573- 7791 Sep, [facility] [id number] [place] [address] 48146- 4173 Sep, Upper respiratory tract infection, unspecified type J06.9 [facility] [id number] [place] [address] 08844- 6098 Aug, [facility] [id number] [place] [address] 31132- 2310 Aug, Dysuria R30.0 [facility] [id number] [place] [address] 28571- 1667 Aug, [facility] [id number] [place] [address] 80448- 2851 Jul, [facility] [id number] [place] [address] 35145- 9028 Jul, [facility] [id number] [place] [address] 18704- 8510 Jul, [facility] [id number] [place] [address] 55339- 6656 Jul, [facility] [id number] [place] [address] 22330- 4527 Jun, [facility] [id number] [place] [address] 25277- 0333 Jun, [facility] [id number] [place] [address] 05993- 2693 Jun, [facility] [id number] [place] [address] 26359- 6026 May, [facility] [address], [place] [address]- 2380 May, Bipolar I disorder, most recent episode (or current) mixed, moderate 296.62 [facility] [id number] [place] [address] 02801- 5030 May, [facility] [id number] [place] [address] 53551- 4270 May, Bipolar I disorder, most recent episode (or current) mixed, moderate 296.62 and Major depressive disorder, recurrent episode, severe, specified as with psychotic behavior 296.34 [facility] [id number] [place] [address] 56042- 5082 May, Bipolar I disorder, most recent episode (or current) mixed, moderate 296.62 [facility] [address] [address]- 0831 May, [facility] [id number] [place] [address] 85503- 6473 Apr, [facility] [address], [place] [address]- 2784 Apr, [facility] [id number] [place] [address] 03164- 5383 Apr, Unspecified disorder of kidney and ureter 593.9 and Diabetes mellitus type 2, uncontrolled 250.02 [facility] [address], [place] [address]- 9272 Apr, [facility] [address] [address]- 2105 Apr, [facility] [id number] [place] [address] 38799- 8686 Apr, [facility] [id number] [place] [address] 45187- 1885 Apr, [facility] [id number] [place] [address] 96905- 8543 Apr, Diabetes mellitus type II, uncontrolled 250.02 [facility] [address], [place] [address]- 8921 Apr, [facility] [id number] [place] [address] 78334- 0077 Mar, [facility] [address], [place] [address]- 2993 Mar, [facility] [id number] [place] [address] 565968- 1339 Mar, [facility] [id number] [place] [address] 85969- 2908 Mar, Major depressive disorder, recurrent episode, severe, specified as with psychotic behavior 296.34 and Bipolar I disorder, most recent episode (or current) mixed, moderate 296.62 [facility] [id number] [place] [address] 02026- 7389 Mar, Diabetes 250.00 ; Anuria 788.5 ; Nausea and vomiting 787.01 and Diarrhea 787.91 [facility] [address] [address]- 5164 Mar, Diabetes 250.00 [facility] [id number] [address]- 9074 Mar, [facility] [address], [place] [address]- 5604 Mar, Diabetes 250.00 [facility] [address] [address]- 1913 Mar, [facility] [address] [address]- 6435 Mar, [facility] [id number] [place] [address] 551337- 5029 Mar, [facility] [address], [place] [address]- 7445 Mar, [facility] [id number] [place] [address] 90261- 2212 Mar, Bipolar I disorder, most recent episode (or current) mixed, moderate 296.62 and Major depressive disorder, recurrent episode, severe, specified as with psychotic behavior 296.34 [place] [id number] [place] [address] 51506- 0627 Mar, Magnesium deficiency 275.2 ; Hypokalemia 276.8 ; Nausea & vomiting 787.01 and Diabetes mellitus type 2, uncontrolled 250.02 [place] [id number] [place] [address] 06759- 6864 Feb, [address] [address]262- 9127 Feb, Bipolar I disorder, most recent episode (or current) mixed, moderate 296.[address] 21172- 4370 Feb, Nausea and vomiting 787.01 ; Left elbow pain 719.42 ; Anuria 788.5 and Diabetes 250.00 [place] [id number] [place] [address] 43478- 4568 Feb, [address] 30911- 1516 Feb, Hypopotassemia 276.8 and Hypokalemia 276.[address] 75495- 8788 Feb, Hypopotassemia 276.8 and Hypokalemia 276.8 [place] [id number] [place] [address] 59415- 7924 Feb, Seborrheic keratoses 702.[address] 30591- 0494 Feb, Hypopotassemia 276.8 and Low magnesium levels 275.[address] 04059- 7094 January, [facility] [address] [address]- 0378 January, [facility] [id number] [place] [address] 23289- 2835 January, [facility] [id number] [address]- 7022 January, Scalp lesion 709.9 [facility] [id number] [place] [address] 38481- 3873 January, [facility] [id number] [place] [address] 17073- 7724 Dec, Tear of medial cartilage or meniscus of knee, current 836.0 and 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 [facility] [id number] [address]- 9917 Dec, [facility] [id number] [place] [address] 02729- 0531 Dec, [facility] [id number] [place] [address] 86167- 1043 Dec, Squamous cell carcinoma, 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 [facility] [id number] [address]- 9054 14 Dec, 2014 [facility] [address], [place] [address]- 7738 Dec, [facility] [address], [place] [address]- 4968 Nov, [facility] [id number] [address]- 4632 Nov, [facility] [id number] [address]- 7614 Nov, [facility] [address], [place] [address]- 3488 Nov, [facility] [place] [facility] [address] [id number] [place] [address]- 4111 09 Nov, 2014 [facility] [place] [facility] [address] [id number] [place] [address]- 9010 Nov, 2014 [facility] [place] [facility] [address] [id number] [place] [address]- 3035 Nov, 2014 [facility] [place] [facility] [address] [id number] [place] [address]- 1898 Nov, 2014 [facility] [place] [facility] [address] [id number] [place] [address]- 8331 Nov, 2014 [facility] [place] [facility] [address] [id number] [place] [address]- 5016 Nov, 2014 [facility] [place] [facility] [address] [facility] [id number] [place] [address]- 7623 Nov, 2014 [facility] [place] [facility] [address] [facility] [id number] [place] [address]- 4747 Nov, 2014 [facility] [place] [facility] [address] [facility] [id number] [place] [address]- 6255 Oct, 2014 [facility] [place] [facility] [address] [facility] [id number] [place] [address]- 0033 Oct, 2014 [facility] [place] [facility] [address] [facility] [id number] [place] [address]- 0160 Oct, 2014 [facility] [place] [facility] [address] [facility] [id number] [address]- 2149 Oct, 2014 [facility] [place] [facility] [address] [facility] [id number] [place] [address]- 4422 Oct, 2014 [facility] [place] [facility] [address] [id number] [place] [address]- 8355 Oct, 2014 [facility] [place] [facility] [address] [facility] [id number] [place] [address]- 3221 Oct, 2014 [facility] [place] [facility] [address] [facility] [id number], [place] [address]- 8990 Oct, [facility] [address] [id number] [place] [address]- 8177 Oct, [facility] [place] [facility] [address] [id number] [place] [address]- 9943 Sep, [facility] [place] [facility] [address] [id number] [place] [address]- 1426 Sep, [facility] [place] [facility] [address] [id number] [place] [address]- 4908 Sep, [facility] [place] [facility] [address] [id number] [place] [address]- 9539 Sep, [facility] [place] [facility] [address] [id number] [place] [address]- 8135 Sep, [facility] [address] [id number] [place] [address]- 7047 Sep, [facility] [place] [facility] [address] [id number] [place] [address]- 1156 Sep, [facility] [place] [facility] [address] [id number] [place] [address]- 5165 Sep, [facility] [place] [facility] [address] [id number] [place] [address]- 2011 Sep, [facility] [place] [facility] [address] [id number] [place] [address]- 1924 Sep, [facility] [place] [facility] [address] [id number], [place] [address]- 4392 Sep, [facility] [place] [facility] [address] [id number], [place] [address]- 9889 Sep, [facility] [place] [facility] [address] [id number], [place] [address]- 7553 Sep, [facility] [place] [facility] [address] [id number], [place] [address]- 3963 Sep, [facility] [place] [facility] [address] [id number] [place] [address]- 9060 Sep, [facility] [address] [id number] [place] [address]- 1255 Sep, [facility] [address] [id number] [place] [address]- 1849 Aug, [facility] [address] [id number] [place] [address]- 0114 Aug, [facility] [address] [id number] [place] [address]- 4604 Aug, [facility] [address] [id number] [place] [address]- 1392 Aug, [facility] [address] [id number] [place] [address]- 7851 Aug, [facility] [address] [id number] [place] [address]- 1977 Aug, [facility] [address] [id number] [place] [address]- 1878 Aug, [facility] [address] [id number] [place] [address]- 4711 Aug, [facility] [address] [id number] [place] [address]- 0509 Aug, [facility] [address] [id number] [place] [address]- 7165 Aug, [facility] [address] [id number] [place] [address]- 6092 Aug, [facility] [address] [place] [id number] 10 Aug, 2014 [facility] [address] [id number] [place] [address]- 0701 Aug, [facility] [address] [id number] [place] [address]- 4092 Aug, [facility] [place] [facility] [address] [id number] [place] [address]- 2480 Aug, [facility] [place] [facility] [address] [id number] [place] [address]- 2621 Aug, [facility] [place] [facility] [address] [id number] [place] [address]- 7567 Aug, [facility] [place] [facility] [address] [id number] [place] [address]- 0165 Aug, [facility] [place] [facility] [address] [id number] [place] [address]- 9986 Aug, [facility] [place] [facility] [address] [id number] [place] [address]- 8511 Aug, [facility] [place] [facility] [address] [id number] [place] [address]- 0582 Aug, [facility] [place] [facility] [address] [id number] [place] [address]- 2308 Aug, [facility] [place] [facility] [address] [id number] [place] [address]- 5770 Aug, [facility] [place] [facility] [address] [id number] [place] [address]- 7506 Aug, [facility] [place] [facility] [address] [id number] [place] [address]- 0397 Aug, [facility] [place] [facility] [address] [id number] [place] [address]- 2188 Aug, [facility] [place] [facility] [address] [id number] [place] [address]- 0266 Aug, [facility] [place] [facility] [address] [id number] [place] [address]- 1329 Aug, [facility] [place] [facility] [address] [id number] [place] 4936 Aug, [facility] [place] [facility] [address] [id number], [place] [address]- 2834 Aug, [facility] [place] [facility] [address] [id number] [place] [address]- 2088 Jul, [facility] [place] [facility] [address] [id number] [place] [address]- 6548 Jul, [facility] [place] [facility] [address] [id number] [place] [address]- 8179 Jul, [facility] [place] [facility] [address] [id number] [place] [address]- 9180 Jul, [facility] [place] [facility] [address] [id number] [place] [address]- 6469 Jul, [facility] [place] [facility] [address] [id number] [place] [address]- 3327 Jul, [facility] [place] [facility] [address] [id number] [place] [address]- 8494 Jul, [facility] [place] [facility] [address] [id number] [place] [address]- 6000 Jul, [facility] [place] [facility] [address] [id number] [place] [address]- 9313 Jul, [facility] [place] [facility] [address] [id number] [place] [address]- 0953 Jul, [facility] [place] [facility] [address] [id number], [place] [address]- 8784 Jun, [facility] [place] [facility] [address] [id number], [place] [address]- 0108 Jun, [facility] [place] [facility] [address] [id number], [place] [address]- 5198 16 Jun, 2014 [facility] [place] [facility] [address] [id number] [place] [address]- 4794 16 Jun, 2014 [facility] [place] [facility] [address] [id number] [place] [address]- 3434 15 Jun, 2014 [facility] [place] [facility] [address] [id number] [place] [address]- 1364 15 Jun, 2014 [facility] [place] [facility] [address] [id number] [place] [address]- 6937 Jun, [facility] [place] [facility] [address] [id number] [place] [address]- 9386 Jun, [facility] [place] [facility] [address] [id number] [place] [address]- 7091 Jun, [facility] [place] [facility] [address] [id number] [place] [address]- 3365 Jun, [facility] [place] [facility] [address] [id number] [place] [address]- 4470 29 May, 2013 [facility] [place] [facility] [address] [id number] [place] [address]- 2753 29 Sep, 2013 [facility] [place] [facility] [address] [id number] [place] [address]- 6298 26 May, 2013 [facility] [place] [facility] [address] [id number] [place] [address] 2549 26 Sep, 2013 [facility] [place] [facility] [address] [id number] [place] [address]- 2544 17 May, 2013 [facility] [place] [facility] [address] [id number] [place] [address]- 5900 17 May, 2013 [facility] [place] [facility] [address] [id number] [place] [address]- 2544 15 Sep, 2013 [facility] [place] [facility] [address] [id number] [place] [address] 2546 15 Sep, 2013 [facility] [place] [facility] [address] [id number] [place] [address] 2546 15 May, 2013 [facility] [place] [facility] [address] [id number] [place] [address]- 2546 15 Sep, 2013 [facility] [place] [facility] [address] [id number] [place] [address]- 2549 May, [facility] [place] [facility] [address] [id number] [place] [address]- 7438 May, [facility] [place] [facility] [address] [id number] [place] [address]- 7270 May, [facility] [place] [facility] [address] [id number] [place] [address]- 7278 May, [facility] [place] [facility] [address] [id number] [place] [address]- 2700 May, [facility] [place] [facility] [address] [id number] [place] [address]- 5802 May, [facility] [place] [facility] [address] [id number] [place] [address]- 0260 Apr, [facility] [place] [facility] [address] [id number] [place] [address]- 4628 Apr, [facility] [place] [facility] [address] [id number] [place] [address]- 4003 Apr, [facility] [place] [facility] [address] [id number] [place] [address]- 9798 Apr, [facility] [place] [facility] [address] [id number] [place] [address]- 9846 Apr, [facility] [place] [facility] [address] [id number] [place] [address]- 5105 Apr, [facility] [place] [facility] [address] [id number] [place] [address]- 9507 Apr, [facility] [place] [facility] [address] [id number] [place] [address]- 5953 Apr, [facility] [place] [facility] [address] [id number] [place] [address]- 3226 Apr, [facility] [place] [facility] [address] [id number] [place] [address]- 8779 Apr, [facility] [place] [facility] [address] [id number] [place] [address]- 7839 Apr, [facility] [place] [facility] [address] [id number] [place] [address]- 3084 Apr, [facility] [place] [facility] [address] [id number] [place] [address]- 0657 Apr, [facility] [place] [facility] [address] [id number] [place] [address]- 7259 Apr, [facility] [place] [facility] [address] [id number] [place] [address]- 7866 Apr, [facility] [place] [facility] [address] [id number] [place] [address]- 0880 Mar, [facility] [place] [facility] [address] [id number] [place] [address]- 7790 Mar, [facility] [place] [facility] [address] [id number] [place] [address]- 2524 Mar, [facility] [place] [facility] [address] [id number] [place] [address]- 9470 Mar, [facility] [place] [facility] [address] [id number] [place] [address]- 7075 Mar, [facility] [place] [facility] [address] [id number] [place] [address]- 0882 Mar, [facility] [place] [facility] [address] [id number] [place] [address]- 1632 Mar, [facility] [place] [facility] [address] [id number] [place] [address]- 4733 Mar, [facility] [place] [facility] [address] [id number] [place] [address]- 9370 Mar, [facility] [place] [facility] [address] [id number] [place] [address]- 3561 Mar, [facility] [place] [facility] [address] [id number] [place] [address]- [address] Mar, [facility] [place] [facility] [address] [id number] [place] [address] Mar, 2013 [facility] [place] [facility] [address] [id number] [place] [address] Mar, 2013 [facility] [place] [facility] [address] [id number] [place] [address]- [address] Mar, 2013 [facility] [place] [facility] [address] [id number] [place] [address]- [address] Mar, 2013 [facility] [place] [facility] [address] [id number] [place] [address]- [address] Mar, 2013 [facility] [place] [facility] [address] [id number] [place] [address]- [address] Mar, 2013 [facility] [place] [facility] [address] [id number] [place] [address]- [address] Mar, 2013 [facility] [place] [facility] [address] [id number] [place] [address]- [address] Feb, [facility] [place] [facility] [address] [id number] [place] [address]- [address] Feb, [facility] [place] [facility] [address] [id number] [place] [address]- [address] Feb, [facility] [place] [facility] [address] [id number] [place] [address]- [address] Feb, [facility] [place] [facility] [address] [id number] [place] [address]- 1786 Feb, [facility] [place] [facility] [address] [id number] [place] [address]- [address] Feb, [facility] [place] [facility] [address] [id number] [place] [address]- [address] Feb, [facility] [place] [facility] [address] [id number] [place] [address]- [address]77 Feb, [facility] [place] [facility] [address] [id number] [place] [address]- [address] Feb, [facility] [place] [facility] [address] [id number] [place] [address]- [address]294 Feb, [facility] [place] [facility] [address] [id number] [place] [address]- [address]68 Feb, [facility] [place] [facility] [address] [id number] [place] [address]- [address] Feb, [facility] [place] [facility] [address] [id number] [place] [address]- 4968 Feb, [facility] [place] [facility] [address] [id number] [place] [address]- [address] Feb, [facility] [place] [facility] [address] [id number] [place] [address]- 1871 January, [facility] [place] [facility] [address] [id number] [place] [address]- [address] January, [facility] [place] [facility] [address] [id number] [place] [address]- [address]644 January, [facility] [place] [facility] [address] [id number] [place] [address]- 5090 January, [facility] [place] [facility] [address] [id number] [place] [address]- 1693 January, [facility] [place] [facility] [address] [id number] [place] [address]- 2590 January, [facility] [place] [facility] [address] [id number] [place] [address]- 2079 January, [facility] [place] [facility] [address] [id number] [place] [address]- 49[address] January, [facility] [place] [facility] [address] [id number] [place] [address]- [address]256 January, [facility] [place] [facility] [address] [id number] [place] [address]- [address]209 January, [facility] [place] [facility] [address] [id number] [place] [address]- 2708 January, [facility] [address] [id number] [place] [address]- [address] January, [facility] [address] [id number] [place] [address]- [address] January, [facility] [address] [id number] [place] [address]- 8630 January, [facility] [address] [id number] [place] [address]- [address] Dec, [facility] [address] [id number] [place] [address]- [address]262 Dec, [facility] [address] [id number] [place] [address]- [address]994 Dec, [facility] [address] [id number] [place] [address]- [address] Dec, [facility] [address] [id number] [place] [address]- 4667 Dec, [facility] [address] [id number] [place] [address]- 7835 Dec, [facility] [address] [id number] [place] [address]- 3318 Dec, [facility] [address] [id number] [place] [address]- 9536 Dec, [facility] [address] [id number] [place] [address]- 69[address] Dec, [facility] [place] [facility] [address] [id number] [place] [address]- 2983 Dec[facility] [place] [facility] [address] [id number] [place] [address] Nov, [facility] [place] [facility] [address] [id number] [place] [address]- [address] Nov, [facility] [place] [facility] [address] [id number] [place] [address]- [address] Nov, [facility] [place] [facility] [address] [id number] [place] [address]- [address] Nov, [facility] [place] [facility] [address] [id number] [place] [address]- 287[address] Nov, [facility] [place] [facility] [address] [id number] [place] [address]- [address] Nov, [facility] [place] [facility] [address] [id number] [place] [address] Nov, [facility] [place] [facility] [address] [id number] [place] [address] 2759 Nov, [facility] [place] [facility] [address] [id number] [place] [address] 6099 Nov, [facility] [place] [facility] [address] [id number] [place] [address] 9781 Nov, [facility] [place] [facility] [address] [id number] [place] [address] 6718 Oct, [facility] [place] [facility] [address] [id number] [place] [address]- 6161 Oct, [facility] [place] [facility] [address] [id number] [place] [address]- 9288 Oct, [facility] [place] [facility] [address] [id number] [place] [address]- 0997 Oct, [facility] [place] [facility] [address] [id number] [place] [address]- 6195 Oct, [facility] [place] [facility] [address] [id number] [place] [address]- 4261 Oct, [facility] [place] [facility] [address] [id number] [place] [address]- 7313 14 Oct, 2013 [facility] [place] [facility] [address] [id number] [place] [address]- 0714 14 Oct, 2013 [facility] [place] [facility] [address] [id number] [place] [address]- 3016 05 Oct, 2013 [facility] [place] [facility] [address] [id number] [place] [address]- 7776 05 Oct, 2013 [facility] [place] [facility] [address] [id number] [place] [address]- 3766 Oct, [facility] [place] [facility] [address] [id number] [place] [address]- 5303 Oct, [facility] [place] [facility] [address] [id number] [place] [address]- 9591 Oct, [facility] [place] [facility] [address] [id number] [place] [address]- 1589 Oct, [facility] [place] [facility] [address] [id number] [place] [address]- 8726 Sep, [facility] [place] [facility] [address] [id number] [place] [address]- 6195 Sep, [facility] [place] [facility] [address] [id number] [place] [address]- 2691 15 Sep, 2013 [facility] [place] [facility] [address] [id number] [place] [address]- 8106 15 Sep, 2013 [facility] [place] [facility] [address] [id number] [place] [address]- 6369 14 Sep, 2013 [facility] [place] [facility] [address] [id number] [place] [address]- 0239 14 Sep, 2013 [facility] [place] [facility] [address] [id number] [place] [address]- 5134 14 Sep, 2013 [facility] [place] [facility] [address] [id number] [place] [address]- 7099 14 Sep, 2013 [facility] [place] [facility] [address] [id number] [place] [address]- 1639 Sep, [facility] [place] [facility] [address] [id number] [place] [address]- 1952 Sep, [facility] [place] [facility] [address] [id number] [place] [address]- 2850 Aug, [facility] [place] [facility] [address] [id number] [place] [address]- 7421 Aug, [facility] [place] [facility] [address] [id number] [place] [address]- 2207 Jul, [facility] [place] [facility] [address] [id number] [place] [address]- 2163 Jul, [facility] [place] [facility] [address] [id number] [place] [address]- 8599 Jul, [facility] [place] [facility] [address] [id number] [place] [address]- 0667 Jul, [facility] [place] [facility] [address] [id number], [place] [address] 9841 Jul, [facility] [place] [facility] [address] [id number] [place] [address]- 7619 Jul, [facility] [place] [facility] [address] [id number], [place] [address]- 0457 Jul, [facility] [place] [facility] [address] [id number], [place] [address]- 4330 Jul, [facility] [place] [facility] [address] [id number], [place] [address]- 6271 Jul, [facility] [place] [facility] [address] [id number], [place] [address]- 9228 Jul, [facility] [place] [facility] [address] [id number], [place] [address]- 53[address] Jul, [facility] [place] [facility] [address] [id number], [place] [address]- 4511 Jul, [facility] [place] [facility] [address] [id number] [place] [address]- 1659 06 Jul, 2012 [facility] [place] [facility] [address] [id number] [place] [address]- 0344 Jul, 2012 [facility] [place] [facility] [address] [id number] [place] [address]- 1885 Jul, 2012 [facility] [place] [facility] [address] [id number] [place] [address]- 1507 Jul, 2012 [facility] [place] [facility] [address] [id number] [place] [address]- 7485 Jul, 2012 [facility] [place] [facility] [address] [id number] [place] [address] Jul, 2012 [facility] [place] [facility] [address] [id number] [place] [address]- 1615 Jul, 2012 [facility] [place] [facility] [address] [id number] [place] [address]- 3519 16 Jun, 2012 [facility] [place] [facility] [address] [id number] [place] [address]- 9797 16 Jun, 2012 [facility] [place] [facility] [address] [id number] [place] [address]- 0569 16 Jun, 2012 [facility] [place] [facility] [address] [facility] [id number] [place] [address]- 0972 16 Jun, 2012 [facility] [place] [facility] [address] [id number] [place] [address]- 6608 16 Jun, 2012 [facility] [place] [facility] [address] [id number], [place] [address]- 8666 16 Jun, 2012 [facility] [place] [facility] [address] [id number] [place] [address]- 8908 10 Jun, 2012 [facility] [place] [facility] [address] [facility] [id number] [place] [address]- 5066 10 Jun, 2012 [facility] [place] [facility] [address] [id number] [address] [address] Jun, [facility] [place] [facility] [address] [id number] [place] [address]- 5205 Jun, [facility] [place] [facility] [address] [id number] [place] [address]- 6374 Jun, [facility] [place] [facility] [address] [id number] [place] [address]- 5745 May, [facility] [place] [facility] [address] [id number] [place] [address]- 1245 May, [facility] [place] [facility] [address] [id number] [place] [address]- 8488 May, [facility] [place] [facility] [address] [id number] [place] [address]- 5786 17 May, 2013 [facility] [place] [facility] [address] [id number] [place] [address]- 1499 May, [facility] [place] [facility] [address] [id number] [place] [address]- 1075 May, [facility] [place] [facility] [address] [id number] [place] [address]- 1396 May, [facility] [place] [facility] [address] [id number] [place] [address]- 4415 May, [facility] [place] [facility] [address] [id number] [place] [address]- 4842 Apr, [facility] [place] [facility] [address] [id number] [place] [address]- 4186 Apr, [facility] [place] [facility] [address] [id number] [place] [address]- 7272 Apr, [facility] [place] [facility] [address] [id number] [place] [address]- 4024 Apr, [facility] [place] [facility] [address] [id number] [place] [address]- 4664 Apr, [facility] [place] [facility] [address] [id number] [place] [address]- 2546 Mar, [facility] [address] [id number] [place] [address]- 7842 Mar, [facility] [place] [facility] [address] [id number] [place] [address]- 0699 Mar, [facility] [place] [facility] [address] [id number] [place] [address]- 6296 Mar, [facility] [place] [facility] [address] [id number] [place] [address]- 1565 Mar, [facility] [place] [facility] [address] [id number] [place] [address]- 5817 Mar, [facility] [place] [facility] [address] [id number] [place] [address]- 7427 Mar, [facility] [place] [facility] [address] [id number] [place] [address]- 9966 Mar, [facility] [place] [facility] [address] [id number] [place] [address]- 7324 Feb, [facility] [place] [facility] [address] [id number] [place] [address]- 2176 Feb, [facility] [place] [facility] [address] [id number] [place] [address]- 1444 January, [facility] [place] [facility] [address] [id number] [place] [address]- 7636 January, [facility] [place] [facility] [address] [id number] [place] [address]- 6788 Dec, [facility] [place] [facility] [address] [id number] [place] [address]- 9297 Dec, [facility] [place] [facility] [address] [id number] [place] [address]- 3077 Nov, [facility] [place] [facility] [address] [id number] [place] [address]- 7585 Nov, [facility] [place] [facility] [address] [id number] [place] [address]- 2620 Nov, [facility] [address] [id number] [place] [address]- 2236 Nov, [facility] [place] [facility] [address] [id number] [place] [address]- 8206 Oct, [facility] [address] [id number] [place] [address]- 4423 Oct, [facility] [place] [facility] [address] [id number] [place] [address]- 5796 Oct, [facility] [address] [id number] [place] [address]- 6794 Oct, [facility] [address] [id number] [place] [address]- 4213 16 Oct, 2012 [facility] [address] [id number] [place] [address]- 1032 14 Oct, 2012 [facility] [address] [id number] [place] [address]- 0686 08 Oct, 2012 [facility] [address] [facility] [id number] [place] [address]- 56[address], [address] [facility] [place] [facility] [address] [id number] [place] [address]- 5824 Oct, [facility] [address] [id number], [place] [address]- 0142 Sep, [facility] [place] [facility] [address] [id number] [place] [address]- 4905 Sep, [facility] [place] [facility] [address] [id number] [place] [address]- 1465 Sep, [facility] [place] [facility] [address] [id number] [place] [address]- 9870 Sep, [facility] [place] [facility] [address] [id number] [place] [address]- 0671 17 Sep, 2012 [facility] [place] [facility] [address] [id number] [place] [address]- 4342 Sep, [facility] [place] [facility] [address] [id number] [place] [address]- 8316 Sep, [facility] [place] [facility] [address] [id number] [place] [address]- 0911 Sep, [facility] [place] [facility] [address] [id number] [place] [address]- 4615 Aug, [facility] [place] [facility] [address] [id number] [place] [address]- 8489 Aug, [facility] [place] [facility] [address] [id number] [place] [address]- 8313 Aug, [facility] [place] [facility] [address] [id number] [place] [address]- 4893 Aug, [facility] [place] [facility] [address] [id number] [place] [address]- 6160 Aug, [facility] [place] [facility] [address] [id number] [place] [address]- 0984 Aug, [facility] [place] [facility] [address] [id number] [place] [address]- 4551 Aug, [facility] [place] [facility] [address] [id number] [place] [address]- 9474 Aug, [facility] [place] [facility] [address] [id number] [place] [address]- 3843 Jul, [facility] [place] [facility] [address] [id number] [place] [address]- 4612 Jul, [facility] [place] [facility] [address] [id number] [place] [address]- 6629 Jul, [facility] [place] [facility] [address] [id number] [place] [address]- 4356 Jul, [facility] [place] [facility] [address] [id number] [place] [address]- 0535 Jul, [facility] [place] [facility] [address] [id number] [place] [address]- 7733 Jul, [facility] [place] [facility] [address] [id number] [place] [address]- 9641 Jun, [facility] [place] [facility] [address] [id number] [place] [address]- 8347 Jun, [facility] [place] [facility] [address] [id number] [place] [address]- 6568 Jun, [facility] [place] [facility] [address] [id number] [place] [address]- 4345 Jun, [facility] [place] [facility] [address] [id number] [place] [address]- 3562 Jun, [facility] [place] [facility] [address] [id number] [place] [address]- 9621 Jun, [facility] [place] [facility] [address] [id number] [place] [address]- 0997 Jun, [facility] [place] [facility] [address] [id number] [place] [address]- 5683 Jun, [facility] [place] [facility] [address] [id number] [place] [address]- 8672 10 Jun, 2012 [facility] [place] [facility] [address] [id number] [place] [address]- 6118 26 May, 2012 [facility] [place] [facility] [address] [id number] [place] [address]- 2547 24 May, 2012 [facility] [place] [facility] [address] [id number] [place] [address]- 8992 18 May, 2012 [facility] [place] [facility] [address] [id number] [place] [address]- 0871 30 Apr, 2012 [facility] [place] [facility] [address] [id number] [place] 7348 Apr, [facility] [place] [facility] [address] [id number] [place] [address]- 6522 Apr, [facility] [place] [facility] [address] [id number] [place] [address]- 1231 Apr, [facility] [place] [facility] [address] [id number] [place] [address]- 4522 Apr, [facility] [place] [facility] [address] [id number] [place] [address]- 4729 Apr, [facility] [place] [facility] [address] [id number] [place] [address]- 2571 Mar, [facility] [place] [facility] [address] [id number] [place] [address]- 5885 Mar, [facility] [place] [facility] [address] [id number] [place] [address]- 7361 Mar, [facility] [place] [facility] [address] [id number] [place] [address]- 1774 Mar, [facility] [place] [facility] [address] [id number] [place] [address]- 8908 Feb, [facility] [place] [facility] [address] [id number] [place] [address]- 7535 Feb, [facility] [place] [facility] [address] [id number] [place] [address]- 7965 Feb, [facility] [place] [facility] [address] [id number] [place] [address]- 1914 Feb, [facility] [place] [facility] [address] [id number] [place] [address]- 1314 Feb, [facility] [place] [facility] [address] [id number] [place] [address]- 3681 January, [facility] [place] [facility] [address] [id number] [place] [address]- 4273 January, [facility] [place] [facility] [address] [id number] [place] [address]- 4028 January, [facility] [address] [id number] [place] [address]- 6619 January, [facility] [place] [facility] [address] [id number] [place] [address]- 4123 January, [facility] [address] [id number] [place] [address]- 8809 January, [facility] [place] [facility] [address] [id number] [place] [address]- 3719 Dec, [facility] [place] [facility] [address] [id number] [place] [address]- 2590 Dec, [facility] [place] [facility] [address] [id number] [place] [address]- 4674 Dec, [facility] [address] [id number] [place] [address]- 2687 Dec, [facility] [place] [facility] [address] [id number] [place] [address]- 3841 Dec, [facility] [place] [facility] [address] [id number] [place] [address]- 3665 Nov, [facility] [place] [facility] [address] [id number] [place] [address]- 0542 Nov, [facility] [place] [facility] [address] [id number] [place] [address]- 1825 Nov, [facility] [place] [facility] [address] [id number] [place] [address]- 9716 Nov, [facility] [place] [facility] [address] [id number] [place] [address]- 0664 Oct, [facility] [place] [facility] [address] [id number] [place] [address]- 8025 Oct, [facility] [place] [facility] [address] [id number] [place] [address]- 6834 Oct, [facility] [place] [facility] [address] [id number] [place] [address]- 4061 Oct, [facility] [place] [facility] [address] [id number] [place] [address]- 5916 Oct, [facility] [place] [facility] [address] [id number] [place] [address]- 6847 Sep, [facility] [place] [facility] [address] [id number] [place] [address]- 2017 Sep, [facility] [place] [facility] [address] [id number] [place] [address]- 9653 Sep, [facility] [place] [facility] [address] [id number] [place] [address]- 9142 Sep, [facility] [place] [facility] [address] [id number] [place] [address]- 5578 Sep, [facility] [address] [id number] [place] [address]- 1033 Sep, [facility] [place] [facility] [address] [id number] [place] [address]- 8640 Aug, [facility] [place] [facility] [address] [id number] [place] [address]- 4377 Aug, [facility] [place] [facility] [address] [id number] [place] [address]- 1589 Aug, [facility] [place] [facility] [address] [id number] [place] [address]- 9326 Jul, [facility] [place] [facility] [address] [id number] [place] [address]- 4597 Jul, [facility] [place] [facility] [address] [id number] [place] [address]- 3105 Jul, [facility] [place] [facility] [address] [id number] [place] [address]- 2356 Jul, [facility] [place] [facility] [address] [id number] [place] [address]- 6152 31 Jun, 2011 [facility] [place] [facility] [address] [id number] [place] [address]- 1347 31 Jun, 2011 [facility] [place] [facility] [address] [id number] [place] [address]- 0298 18 Jun, 2011 [facility] [place] [facility] [address] [id number] [place] [address]- 3535 10 Jun, 2011 [facility] [place] [facility] [address] [id number] [place] [address]- 5504 10 Jun, 2011 [facility] [place] [facility] [address] [id number] [place] [address]- 5344 10 Jun, 2011 [facility] [place] [facility] [address] [id number] [place] [address]- 9637 11 Mar, 2011 [facility] [place] [facility] [address] [id number] [place] [address]- 2081 18 Dec, 2010 [facility] [place] [facility] [address] [id number] [place] [address]- 9456 11 Dec, 2010 [facility] [place] [facility] [address] [id number] [place] [address]- 4823 Nov, [facility] [place] [facility] [address] [id number] [place] [address]- 3291 16 Nov, 2010 [facility] [place] [facility] [address] [id number] [place] [address]- 2589 Sep, [facility] [place] [facility] [address] [id number] [place] [address]- 4048 Aug, [facility] [place] [facility] [address] [id number] [place] [address] Aug, [facility] [place] [facility] [address] [id number] [place] [address] Aug, [facility] [place] [facility] [address] [id number] [place] [address] Aug, [facility] [place] [facility] [address] [id number] [place] [address] 27 Aug, 2010 [facility] [address] [id number] [place] [address] 14 Aug, 2010 [facility] [place] [facility] [address] [id number] [place] [address]46 08 Aug, 2010 [facility] [place] [facility] [address] [id number] [place] [address] 2546 08 Aug, 2010 [facility] [place] [facility] [address] [id number] [place] [address]46 07 Aug, 2010 [facility] [address] [id number] [place] [address] 06 Aug, 2010 [facility] [place] [facility] [address] [facility] [id number] [place] [address] 06 Aug, 2010 [facility] [place] [facility] [address] [id number] [place] [address] Aug, [facility] [address] [id number] [place] [address] 30 Jul, 2010 [facility] [place] [facility] [address] [id number] [place] [address] 2536 30 Jul, [address] [facility] [place] [facility] [address] [facility] [id number] [place] [address] 30 Jul, 2010 [facility] [place] [facility] [address] [id number] [place] [address] 2546 17 Jul, 2010 [facility] [place] [facility] [address] [id number] [place] [address] 2547 08 Jul, 2010 [facility] [place] [facility] [address] [id number] [place] [address] Jul, [facility] [place] [facility] [address] [id number] [place] [address] 2546 24 Jun, 2010 [facility] [place] [facility] [address] [id number] [place] [address] Jun, [facility] [place] [facility] [address] [id number] [place] [address] 4740 19 Jun, 2010 [facility] [place] [facility] [address] [id number] [place] [address]- 1064 13 Jun, 2010 [facility] [place] [facility] [address] [id number] [place] [address]- 0902 16 Apr, 2010 [facility] [place] [facility] [address] [id number] [place] [address]- 2980 20 Mar, 2010 [facility] [place] [facility] [address] [id number] [place] [address] 17 Feb, 2010 [facility] [place] [facility] [address] [id number] [place] [address] January, [facility] [place] [facility] [address] [id number] [place] [address]- [address]87 15 Dec, 2009 [facility] [place] [facility] [address] [id number], [place] [address] Nov, [facility] [place] [facility] [address] [id number] [place] [address] Aug, [facility] [place] [facility] [address] [id number], [place] [address] Aug, [facility] [place] [facility] [address] [id number], [place] [address] Aug, [facility] [place] [facility] [address] [id number], [place] [address] 12 Jul, 2009 [facility] [place] [facility] [address] [id number] [place] [address] Jul, [facility] [place] [facility] [address] [id number], [place] [address] 07 Jul, 2009 [facility] [place] [facility] [address] [id number] [place] [address] 30 Jun, 2009 [facility] [place] [facility] [address] [id number], [place] [address] Jun, [facility] [id number] [address] Jun, [facility] [id number], [place] [address] Jun, [facility] [id number], [place] [address] Jun, [facility] [id number], [place] [address] Jun, [facility] [id number] [place] [address] Apr, [facility] [id number] [place] [address] Apr, [facility] [address] [id number], [place] [address] Feb, [facility] [id number], [place] [address] January, [facility] [id number], [place] [address] Dec, IMMUNIZATIONS No Known Immunizations SOCIAL HISTORY Never Assessed REASON FOR VISIT BH f/u, Depression. PLAN OF CARE Activity Details Follow Up Next available Reason:depresion VITAL SIGNS MEDICATIONS Unknown Medications RESULTS No Results PROCEDURES Procedure Date Ordered Result Body Site [facility] VISIT MENTAL HEALTH ESTAB PT December 18, 2017 Psychotherapy, patient &/family, 45 minutes, established patient December 18, 2017 INSTRUCTIONS MEDICATIONS ADMINISTERED No Known Medications MEDICAL (GENERAL) HISTORY Type Description Date Medical History type II diabetes Medical History coronary artery disease stress test 01/5015 Medical History chronic obstructive pulmonary disease (COPD) Medical History gastroesophageal reflux disease (GERD) Medical History acute renal failure Medical History erectile dysfunction Medical History hyperlipidemia Medical History obesity Medical History skin cancer-basal cell R catholic (removed) Medical History Arthritis Medical History degenerative [...] EGD ([facility]) 2009 Surgical History colonoscopy 2009 ([facility] 2013 ([facility]) Surgical History heart 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 04/2014 Surgical History carotid US 05/2014 Surgical History resection of skin cancer from Right catholic Surgical History Biopsy of Lung Bilateral/Left lung lymph node 09/2016 Surgical History Bone Marrow Biopsy Surgical History port in the right chest wall 12/2016 Hospitalization History [facility] low potassium, low magnesium, chest painina 01/2015 Hospitalization History inability to urinate 09/16/15 Hospitalization History [facility] mental health early Hospitalization History hyperkalemia 10/2017 Hospitalization History fluid in lung
--- OUTSIDE RECORDS SUMMARY | 2018-08-08 14:29 | XMS REPORT ---
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 Name Role Phone NOEMI WASHBURN Unavailable PROBLEMS Type Condition ICD9-CM Code WCK50-AD Code Onset Dates Condition Status SNOMED Code Problem Chronic lymphocytic leukemia C91.10 Active 44172412 Problem Insomnia, unspecified type G47.00 Active 471464729 Problem Lymphocytosis D72.820 Active 59218166 Problem Anxiety F41.9 Active 30982380 Problem Eye exam abnormal R93.8 Active 446870749 Problem Morbid obesity E66.01 Active 539803710 Problem Diabetic polyneuropathy associated with type 2 diabetes mellitus E11.42 Active 75957938 Problem Essential hypertension I10 Active 72494515 Problem Falling R29.6 Active 063940738 Problem 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 Active 284572933 Problem Cough R05 Active 48233020 Problem Dysuria R30.0 Active 63684098 Problem Eustachian tube dysfunction, unspecified laterality H69.80 Active 98799471 Problem Bilateral primary osteoarthritis of knee M17.0 Active 762271375 Problem Polyneuropathy associated with underlying disease G63 Active 798711644 Problem Anemia of chronic illness D63.8 Active 341635132 Problem Retinal edema H35.81 Active 8135401 Problem DM neuro manif type II E11.49 Active 47399673 Problem Diabetes E11.9 Active 43588315 Problem Hypokalemia E87.6 Active 34981905 Problem Benign prostatic hyperplasia with lower urinary tract symptoms, unspecified morphology N40.1 Active 140511699 Problem Reactive airway disease J45.909 Active 015112742348 Problem Bipolar I disorder, most recent episode (or current) mixed, moderate F31.62 Active 04207994 Problem Chronic pain G89.29 Active 55439383 Problem Leukocytosis D72.829 Active 459876091 ALLERGIES No Information ENCOUNTERS Encounter Location Date Diagnosis [facility] [address], [place] [address] Apr, [facility] [address], [place] [address] Apr, [facility] [address], [place] [address] 9600 Apr, [facility] [address] [address] 1152 Mar, [facility] [address] [address]00 Mar, [facility] [address], [place] [address] Mar, Bipolar I disorder, most recent episode (or current) mixed, moderate F31.62 [facility] [address], [place] [address] 79[address] Mar, Bipolar I disorder, most recent episode (or current) mixed, moderate F31.62 [facility] [address], [place] [address] 0705 Mar, Chronic pain G89.29 [facility] [address], [place] [address] 5901 Mar, Bipolar I disorder, most recent episode (or current) mixed, moderate F31.62 [facility] [address], [place] [address] 9[address] Feb, Bipolar I disorder, most recent episode (or current) mixed, moderate F31.62 [facility] [address], [place] [address] 9[address] Feb, Chronic pain G89.29 [facility] [address], [place] [address] 9[address] 06 Feb, 2018 Decubitus ulcer of right foot, stage 3 L89.893 and BMI 50.0- 59.9, adult Z68.43 [facility] [address] [place] [address] 37234- 2198 Feb, Bipolar I disorder, most recent episode (or current) mixed, moderate F31.62 [facility] [id number] [place] [address] 81343- 1203 Feb, [facility] [id number] [place] [address] 34181- 7221 January, [facility] [id number] [place] [address] 98882- 8562 January, Chronic pain G89.29 [facility] [id number] [place] [address] 16851- 6460 January, Bipolar I disorder, most recent episode (or current) mixed, moderate F31.62 [facility] [id number] [place] [address] 13455- 3297 January, Bipolar I disorder, most recent episode (or current) mixed, moderate F31.62 [facility] [id number] [place] [address] 11714- 3151 Dec, Bipolar I disorder, most recent episode (or current) mixed, moderate F31.62 and BMI 50.0-59.9, adult Z68.43 [facility] [id number] [place] [address] 29961- 7142 Dec, Bipolar I disorder, most recent episode (or current) mixed, moderate F31.62 [facility] [address] [place] [address] 77399- 7385 Dec, Chronic pain G89.29 [facility] [address] 45791- 1135 18 Dec, 2017 DM neuro manif type II E11.49 ; Right flank pain R10.9 ; FDC 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 Z79.891 ; Encounter for medication monitoring Z51.81 and BMI 50.0-59.9, adult Z68.43 [facility] [id number] [place] [address] 61547- 2546 Dec, Bipolar I disorder, most recent episode (or current) mixed, moderate F31.62 [facility] [address] [place] [address] 46454- 1366 Nov, Bipolar I disorder, most recent episode (or current) mixed, moderate F31.62 [facility] [address] [place] [address] 81525- 9946 Nov, Chronic pain G89.29 [facility] [id number] [place] [address] 20253 2546 Nov, Bipolar I disorder, most recent episode (or current) mixed, moderate F31.62 [facility] [address] [place] [address] 36414 2546 Nov, Hypokalemia E87.6 [facility] [id number] [place] [address] 70224- 4461 Nov, Bipolar I disorder, most recent episode (or current) mixed, moderate F31.62 [facility] [address] [place] [address] 97124- 0566 Oct, Chronic pain G89.29 [facility] [address] [place] [address] 90349- 7926 Oct, BMI 50.0-59.9, adult Z68.43 and Bipolar I disorder, most recent episode (or current) mixed, moderate F31.62 [facility] [address], [place] [address]- 2906 Oct, Bipolar I disorder, most recent episode (or current) mixed, moderate F31.62 [facility] [address] [place] [address] 27835- 4946 Oct, [facility] [address], [place] [address]- 7384 Oct, Hypokalemia E87.6 [facility] [id number] [place] [address] 84291- 7823 Oct, DM neuro manif type II E11.49 [facility] [address] 30738- 3808 Oct, Bipolar I disorder, most recent episode (or current) mixed, moderate F31.62 [facility] [address] 68733- 7991 Oct, Bipolar I disorder, most recent episode (or current) mixed, moderate F31.62 [facility] [address] 46428- 3947 14 Oct, 2017 Hyperkalemia E87.5 ; Falling R29.6 ; BMI 50.0-59.9, adult Z68.43 and Acute left ankle pain M25.572 [facility] [address] 55518- 9689 Oct, DM neuro manif type II E11.49 [facility] [address] 74961- 1063 Oct, [facility] [address] 85792- 5445 Sep, Chronic pain G89.29 [facility] [address] 60020- 7861 Sep, [facility] [address] 69539- 0133 Sep, Bilateral primary osteoarthritis of knee M17.0 [facility] [address] 40992- 8882 Sep, Generalized edema R60.1 [facility] [address] 30493- 7969 Sep, Bipolar I disorder, most recent episode (or current) mixed, moderate F31.62 [facility] [address] 06399- 1345 Sep, Hypoxia R09.02 ; Other hypervolemia E87.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 ; Anemia of chronic illness D63.8 and BMI 50.0- 59.9, adult Z68.43 [facility] [address] 61935- 5237 Sep, [facility] [address] 20595- 6046 Sep, Bipolar I disorder, most recent episode (or current) mixed, moderate F31.62 [facility] [address] 34871- 3262 Aug, Chronic pain G89.29 [facility] [address] 33395- 4409 Aug, Generalized edema R60.1 [facility] [address] 00769- 6007 Aug, [facility] [address] 76509- 8152 Aug, [facility] [id number] [place] [address] 25047- 6803 14 Aug, 2017 Bipolar I disorder, most recent episode (or current) mixed, moderate F31.62 [facility] [id number] [place] [address] 03283- 3272 Aug, Bipolar I disorder, most recent episode (or current) mixed, moderate F31.62 [facility] [address] 42025- 2611 04 Aug, 2017 Chronic pain G89.29 [facility] [id number] [place] [address] 35529- 8553 30 Jul, 2017 Bipolar I disorder, most recent episode (or current) mixed, moderate F31.62 [facility] [address], [place] [address]- 5492 Jul, Bipolar I disorder, most recent episode (or current) mixed, moderate F31.62 and BMI 60.0-69.9, adult Z68.44 [facility] [id number] [place] [address] 62975- 4492 Jul, Bipolar I disorder, most recent episode (or current) mixed, moderate F31.62 [facility] [id number] [place] [address] 21444- 2125 Jul, Chronic pain G89.29 [facility] [id number] [place] [address] 09230- 5964 Jul, Bipolar I disorder, most recent episode (or current) mixed, moderate F31.62 [facility] [id number] [place] [address] 99342- 4619 Jun, Polyneuropathy associated with underlying disease G63 and Diabetes E11.9 [facility] [id number] [place] [address] 07848- 3491 Jun, Bipolar I disorder, most recent episode (or current) mixed, moderate F31.62 [facility] [id number] [place] [address] 66623- 9698 Jun, Chronic pain G89.29 [facility] [id number] [place] [address] 03268- 5740 May, Bipolar I disorder, most recent episode (or current) mixed, moderate F31.62 [facility] [address] [place] [address] 91827- 9765 May, Bipolar I disorder, most recent episode (or current) mixed, moderate F31.62 [facility] [id number] [place] [address] 14553- 8698 20 May, 2017 Diabetic polyneuropathy associated with type 2 diabetes mellitus E11.42 [facility] [id number] [place] [address] 46924- 7508 18 May, 2017 Bipolar I disorder, most recent episode (or current) mixed, moderate F31.62 [facility] [id number] [place] [address] 611626- 0975 13 May, 2017 Bipolar I disorder, most recent episode (or current) mixed, moderate F31.62 [facility] [id number] [place] [address] 44181- 1936 12 May, 2017 Chronic pain G89.29 [facility] [address] 424285- 3899 Apr, Bipolar I disorder, most recent episode (or current) mixed, moderate F31.62 [facility] [address] 45494- 1552 Apr, [facility] [address] 02832- 9590 Apr, Chronic pain G89.29 and DM neuro manif type II E11.49 [facility] [id number] [place] [address] 16769- 4906 Apr, [facility] [address] 26970- 7536 Apr, Bipolar I disorder, most recent episode (or current) mixed, moderate F31.62 [facility] [id number] [place] [address] 08530- 0025 Apr, Chronic pain G89.29 [facility] [id number] [place] [address] 80699- 5305 Apr, Iliotibial band syndrome, left M76.32 [facility] [address] 833543- 1497 Apr, Bipolar I disorder, most recent episode (or current) mixed, moderate F31.62 [facility] [id number] [place] [address] 53065- 3500 Mar, Bipolar I disorder, most recent episode (or current) mixed, moderate F31.62 [facility] [address], [place] [address]- 0346 Mar, Bipolar I disorder, most recent episode (or current) mixed, moderate F31.62 [facility] [address], [place] [address]- 0617 Mar, [facility] [address] [place] [address] 45159- 1211 Mar, Bipolar I disorder, most recent episode (or current) mixed, moderate F31.62 [facility] [address] [place] [address] 52668- 5783 Mar, Chronic pain G89.29 [facility] [address] [place] [address] 67638- 9597 Mar, Bipolar I disorder, most recent episode (or current) mixed, moderate F31.62 [facility] [address] [place] [address] 92594- 6423 Mar, Bipolar I disorder, most recent episode (or current) mixed, moderate F31.62 [facility] [address] [place] [address] 35791- 4548 Mar, Acute pain of left knee M25.562 ; Left hip pain M25.552 ; Generalized edema R60.1 and Tongue swelling R22.0 [facility] [address] [place] [address] 12504- 7606 Mar, [facility] [address] [place] [address] 67954- 3634 Feb, Chronic pain G89.29 [facility] [id number] [place] [address] 74953- 8395 Feb, Diabetes E11.9 [facility] [id number] [place] [address] 64450- 4072 January, Chronic pain G89.29 [facility] [address] [address]- 4014 January, [facility] [id number] [place] [address] 86991- 5924 January, Bipolar I disorder, most recent episode (or current) mixed, moderate F31.62 [facility] [id number] [place] [address] 09111- 5715 Dec, Bipolar I disorder, most recent episode (or current) mixed, moderate F31.62 [facility] [id number] [place] [address] 88262- 8673 Dec, Chronic pain G89.29 [facility] [id number] [place] [address] 36993- 6283 Dec, Bipolar I disorder, most recent episode (or current) mixed, moderate F31.62 [facility] [id number] [place] [address] 88915- 8412 Dec, Diabetes E11.9 ; Essential hypertension I10 ; Chronic pain G89.29 and Morbid obesity E66.01 [facility] [id number] [place] [address] 57441- 9307 Dec, [facility] [id number] [place] [address] 74062- 3884 Dec, Bipolar I disorder, most recent episode (or current) mixed, moderate F31.62 [facility] [id number] [place] [address] 31048- 6554 Dec, Bipolar I disorder, most recent episode (or current) mixed, moderate F31.62 [facility] [address] [place] [address] 08322- 9869 Nov, Chronic pain G89.29 [facility] [id number] [place] [address] 61570- 9580 Nov, Bipolar I disorder, most recent episode (or current) mixed, moderate F31.62 [facility] [id number] [place] [address] 66321- 0903 Nov, [facility] [address], [place] [address]- 6242 Nov, Bipolar I disorder, most recent episode (or current) mixed, moderate F31.62 [facility] [address], [place] [address]- 3217 Nov, Bipolar I disorder, most recent episode (or current) mixed, moderate F31.62 [facility] [address], [place] [address]- 9032 Nov, [facility] [address] [place] [address] 93726- 3035 Nov, [facility] [address], [place] [address]- 0726 Nov, [facility] [address] [place] [address] 00601- 8451 Oct, Chronic pain G89.29 [facility] [address], [place] [address]- 6906 Oct, Bipolar I disorder, most recent episode (or current) mixed, moderate F31.62 [facility] [address], [place] [address]- 0433 Oct, [facility] [address], [place] [address]- 3087 Oct, Chronic pain G89.29 ; Diabetes E11.9 ; Anxiety F41.9 and 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 [facility] [address], [place] [address]- 5976 Oct, [facility] [address], [place] [address]- 6770 Oct, Diabetes E11.9 [facility] [address], [place] [address]- 3205 Oct, Bipolar I disorder, most recent episode (or current) mixed, moderate F31.62 [facility] [address], [place] [address]- 2056 Sep, Chronic pain G89.29 [facility] [address], [place] [address]- 8696 Sep, Chronic pain G89.29 [facility] [id number] [place] [address] 64872- 5756 Aug, Chronic pain G89.29 [facility] [address] [place] [address] 57685- 7056 Jul, [facility] [id number] [place] [address] 35707- 9420 Jul, Diabetes E11.9 [facility] [id number] [place] [address] 80385- 3798 Jul, Chronic pain G89.29 [facility] [id number] [place] [address] 44932- 6933 Jul, Bipolar I disorder, most recent episode (or current) mixed, moderate F31.62 [facility] [id number] [place] [address] 07692- 0403 Jun, Bipolar I disorder, most recent episode (or current) mixed, moderate F31.62 [facility] [address], [place] [address]- 8958 Jun, [facility] [id number] [place] [address] 71792- 9872 Jun, Bipolar I disorder, most recent episode (or current) mixed, moderate F31.62 [facility] [address] [place] [address] 33425- 6139 May, Insomnia, unspecified type G47.00 [facility] [address], [place] [address]- 7163 May, Bipolar I disorder, most recent episode (or current) mixed, moderate F31.62 [facility] [address], [place] [address]- 7382 14 May, 2016 [facility] [id number] [place] [address] 31121- 4392 May, Bipolar I disorder, most recent episode (or current) mixed, moderate F31.62 [facility] [id number] [place] [address] 47432- 1161 May, Diabetes E11.9 and Essential hypertension I10 [facility] [id number] [place] [address] 93021- 8896 Apr, Chronic pain G89.29 [facility] [id number] [place] [address] 91340- 3212 Apr, Bipolar I disorder, most recent episode (or current) mixed, moderate F31.62 [facility] [id number] [place] [address] 47361- 0770 Apr, [facility] [id number] [place] [address] 09997- 1653 Apr, [facility] [id number] [place] [address] 91713- 7110 Mar, Chronic pain G89.29 ; Headache, unspecified headache type R51 ; Neuropathy G62.9 ; Pain of right hip joint M25.551 and Essential hypertension I10 [facility] [id number] [place] [address] 84360- 6762 Mar, Chronic pain G89.29 [facility] [address] [place] [address] 92522- 3082 Mar, Bipolar I disorder, most recent episode (or current) mixed, moderate F31.62 [facility] [address] [place] [address] 76630- 4551 Feb, Bipolar I disorder, most recent episode (or current) mixed, moderate F31.62 and Insomnia, unspecified type G47.00 [facility] [id number] [place] [address] 22593- 9520 Feb, Chronic pain G89.29 [facility] [id number] [place] [address] 66065- 4426 Feb, Bipolar I disorder, most recent episode (or current) mixed, moderate F31.62 [facility] [id number] [place] [address] 62445- 1929 January, Bipolar I disorder, most recent episode (or current) mixed, moderate F31.62 [facility] [id number] [place] [address] 78857- 4877 January, Chronic pain G89.29 [facility] [id number] [place] [address] 77867- 8531 January, Chronic pain G89.29 and Essential hypertension I10 [facility] [id number] [place] [address] 27215- 6549 January, Bipolar I disorder, most recent episode (or current) mixed, moderate F31.62 [facility] [id number] [place] [address] 88394- 4926 Dec, [facility] [id number] [place] [address] 60881- 8052 Dec, [facility] [id number] [place] [address] 07573- 3382 Dec, [facility] [id number] [place] [address] 85509- 2542 Dec, [facility] [id number] [place] [address] 72507- 2105 Nov, Reactive airway disease J45.909 [facility] [id number] [place] [address] [phone]- [phone] Nov, [facility] [id number] [place] [address] [phone]- 7298 Nov, [facility] [id number] [place] [address] 23340- 5591 Nov, [facility] [id number] [place] [address] 43244- 0930 Nov, [facility] [id number] [place] [address] 20970- 9679 Nov, Onychomycosis B35.1 ; Hammertoe M20.40 ; [place] or callus L84 and DM neuro manif type II E11.49 [facility] [id number] [place] [address] 53491- 9193 Nov, Chronic pain G89.29 ; Leukocytosis D72.829 and Diabetes E11.9 [facility] [id number] [place] [address] 48181- 4380 Nov, [facility] [id number] [place] [address] 39217- 6879 Oct, Bronchitis J40 [facility] [id number] [place] [address] [phone]- 8571 Oct, [facility] [id number] [place] [address] 39575- 7381 Oct, [facility] [id number] [place] [address] 38805- 3564 Oct, Mastoiditis, unspecified laterality H70.90 and Type 2 diabetes mellitus with complication E11.8 [facility] [id number] [place] [address] [phone]- 9461 Sep, [facility] [id number] [place] [address] 07077- 4924 Sep, Dysuria R30.0 ; Cough R05 ; Benign prostatic hyperplasia with lower urinary tract symptoms, unspecified morphology N40.1 ; Hypokalemia E87.6 and Eustachian tube dysfunction, unspecified laterality H69.80 [facility] [id number] [place] [address] 02918- 4913 Sep, Moderate mixed bipolar I disorder F31.62 [facility] [id number] [place] [address] 02497- 4982 Sep, Hypokalemia E87.6 [facility] [id number] [place] [address] 06169- 3811 Sep, [facility] [id number] [place] [address] 59982- 6364 Sep, Upper respiratory tract infection, unspecified type J06.9 [facility] [id number] [place] [address] 07715- 7603 Aug, [facility] [id number] [place] [address] 73470- 4602 Aug, Dysuria R30.0 [facility] [id number] [place] [address] 55174- 6042 Aug, [facility] [id number] [place] [address] 12375- 1122 Jul, [facility] [id number] [place] [address] 14070- 4419 Jul, [facility] [id number] [place] [address] 24116- 3423 Jul, [facility] [id number] [place] [address] 03902- 6628 Jul, [facility] [id number] [place] [address] 31272- 6916 Jun, [facility] [id number] [place] [address] 51426- 9852 Jun, [facility] [id number] [place] [address] 98150- 9266 Jun, [facility] [id number] [place] [address] 81048- 1618 May, [facility] [address] [address]- 6512 May, Bipolar I disorder, most recent episode (or current) mixed, moderate 296.62 [facility] [id number] [place] [address] 71426- 9205 May, [facility] [id number] [place] [address] 82293- 2163 May, Bipolar I disorder, most recent episode (or current) mixed, moderate 296.62 and Major depressive disorder, recurrent episode, severe, specified as with psychotic behavior 296.34 [facility] [id number] [place] [address] 98750- 5528 May, Bipolar I disorder, most recent episode (or current) mixed, moderate 296.62 [facility] [id number] [place] [address] 54335- 2041 May, [facility] [id number] [place] [address] 92027- 3821 Apr, [facility] [id number] [place] [address] 03307- 2672 Apr, [facility] [id number] [place] [address] 06764- 4575 Apr, Unspecified disorder of kidney and ureter 593.9 and Diabetes mellitus type 2, uncontrolled 250.02 [facility] [id number] [address] 1926 Apr, [facility] [id number] [place] [address] 55527- 6702 Apr, [facility] [id number] [place] [address] 08657- 5182 Apr, [facility] [id number] [place] [address] 94338- 2254 Apr, [facility] [id number] [place] [address] 54020- 5136 Apr, Diabetes mellitus type II, uncontrolled 250.02 [facility] [address], [place] [address]- 4416 Apr, [facility] [id number] [place] [address] 06456- 0920 Mar, [facility] [id number] [place] [address] 10689- 0548 Mar, [facility] [id number] [place] [address] 58615- 6817 Mar, [facility] [id number] [place] [address] 98541- 0612 Mar, Major depressive disorder, recurrent episode, severe, specified as with psychotic behavior 296.34 and Bipolar I disorder, most recent episode (or current) mixed, moderate 296.62 [facility] [id number] [place] [address] 52124- 4971 Mar, Diabetes 250.00 ; Anuria 788.5 ; Nausea and vomiting 787.01 and Diarrhea 787.91 [facility] [id number] [place] [address] 57461- 0484 Mar, Diabetes 250.00 [facility] [id number] [place] [address] 47023- 9988 Mar, [facility] [id number] [place] [address] 98099- 5331 Mar, Diabetes 250.00 [facility] [id number] [place] [address] 24398- 8731 Mar, [facility] [id number] [place] [address] 73336- 4387 Mar, [facility] [id number] [place] [address] 45915543- 3257 Mar, [facility] [id number] [place] [address] 80874- 0837 Mar, [facility] [id number] [place] [address] 29105- 8156 Mar, Bipolar I disorder, most recent episode (or current) mixed, moderate 296.62 and Major depressive disorder, recurrent episode, severe, specified as with psychotic behavior 296.34 [facility] [id number] [place] [address] 18696- 3065 Mar, Magnesium deficiency 275.2 ; Hypokalemia 276.8 ; Nausea & vomiting 787.01 and Diabetes mellitus type 2, uncontrolled 250.02 [facility] [address] 65494- 7101 Feb, [facility] [address] 56946- 8462 Feb, Bipolar I disorder, most recent episode (or current) mixed, moderate 296.62 [facility] [address] 58022- 0185 Feb, Nausea and vomiting 787.01 ; Left elbow pain 719.42 ; Anuria 788.5 and Diabetes 250.00 [facility] [address] 84649- 4711 Feb, [facility] [id number] [place] [address] 30967- 0530 Feb, Hypopotassemia 276.8 and Hypokalemia 276.8 [facility] [id number] [place] [address] 80416- 8044 Feb, Hypopotassemia 276.8 and Hypokalemia 276.8 [facility] [id number] [place] [address] 24600- 5909 Feb, Seborrheic keratoses 702.19 [facility] [address] 45613- 7288 Feb, Hypopotassemia 276.8 and Low magnesium levels 275.2 [facility] [address] 90351- 1294 January, [facility] [address] [address]- 1832 January, [facility] [address] [address]- 3498 January, [facility] [id number] [address]- 9939 January, Scalp lesion 709.9 [facility] [id number] [place] [address] 68367- 0046 January, [facility] [id number] [place] [address] 77615- 5570 Dec, Tear of medial cartilage or meniscus of knee, current 836.0 and 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 [facility] [id number] [place] [address] 87935- 5288 Dec, [facility] [id number] [address]- 9801 Dec, [facility] [id number] [place] [address] 36702- 9522 Dec, Squamous cell carcinoma, 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 [facility] [address], [place] [address]- 5339 14 Dec, 2014 [facility] [address], [place] [address]- 3327 Dec, [facility] [address] [address]- 6494 Nov, [facility] [address], [place] [address]- 9423 Nov, [facility] [address], [place] [address]- 3175 Nov, [facility] [address], [place] [address]- 5219 Nov, [facility] [place] [facility] [address] [id number] [place] [address]- 5450 Nov, [facility] [place] [facility] [address] [id number] [place] [address]- 8073 Nov, [facility] [place] [facility] [address] [id number] [place] [address]- 0163 Nov, 2014 [facility] [place] [facility] [address] [id number] [place] [address]- 8326 Nov, 2014 [facility] [place] [facility] [address] [id number] [place] [address]- 4075 Nov, [facility] [place] [facility] [address] [id number] [place] [address]- 5310 Nov, [facility] [place] [facility] [address] [facility] [id number] [place] [address]- 2972 Nov, [facility] [place] [facility] [address] [id number] [address]- 9982 Nov, [facility] [place] [facility] [address] [id number] [place] [address]- 8333 Oct, 2014 [facility] [place] [facility] [address] [id number] [place] [address]- 3976 Oct, 2014 [facility] [place] [facility] [address] [facility] [id number] [place] [address]- 8893 Oct, 2014 [facility] [place] [facility] [address] [id number] [address]- 6699 Oct, 2014 [facility] [place] [facility] [address] [facility] [id number] [place] [address]- 0235 Oct, 2014 [facility] [place] [facility] [address] [id number] [place] [address]- 4877 Oct, 2014 [facility] [place] [facility] [address] [facility] [id number] [place] [address]- 6427 Oct, 2014 [facility] [place] [facility] [address] [id number] [place] [address]- 2265 Oct, [facility] [address] [id number] [place] [address]- 4976 Oct, [facility] [place] [facility] [address] [id number] [place] [address]- 1898 Sep, [facility] [address] [id number] [place] [address]- 3351 Sep, [facility] [address] [id number] [place] [address]- 0875 Sep, [facility] [address] [id number] [place] [address]- 4813 Sep, [facility] [address] [id number] [place] [address]- 0084 Sep, [facility] [address] [id number] [place] [address]- 5598 Sep, [facility] [address] [id number] [place] [address]- 3253 Sep, [facility] [address] [id number] [place] [address]- 3306 Sep, [facility] [address] [id number] [place] [address]- 4777 Sep, [facility] [place] [facility] [address] [id number] [place] [address]- 5289 Sep, [facility] [place] [facility] [address] [id number] [place] [address]- 5200 Sep, [facility] [place] [facility] [address] [id number] [place] [address]- 9506 Sep, [facility] [place] [facility] [address] [id number] [place] [address]- 2890 Sep, [facility] [place] [facility] [address] [id number] [place] [address]- 3926 Sep, [facility] [address] [id number] [place] [address]- 9655 Sep, [facility] [address] [id number] [place] [address]- 2696 Sep, [facility] [address] [id number] [place] 7456 Aug, [facility] [address] [id number] [place] [address]- 3574 Aug, [facility] [address] [id number] [place] 2380 Aug, [facility] [address] [id number] [place] [address]- 6711 Aug, [facility] [address] [id number] [place] [address]- 8276 Aug, [facility] [address] [id number] [place] [address]- 1468 Aug, [facility] [address] [id number] [place] [address]- 8978 Aug, [facility] [address] [id number] [place] [address]- 2392 Aug, [facility] [address] [id number] [place] [address]- 9099 Aug, [facility] [address] [id number] [place] [address]- 6791 Aug, [facility] [address] [id number] [place] [address]- 0332 Aug, [facility] [address] [place] [id number] 10 Aug, 2014 [facility] [address] [id number] [place] [address]- 5032 Aug, [facility] [address] [id number] [place] [address]- 7804 Aug, [facility] [place] [facility] [address] [id number] [place] [address]- 8928 Aug, [facility] [place] [facility] [address] [id number] [place] [address]- 8425 Aug, [facility] [place] [facility] [address] [id number] [place] [address]- 1152 Aug, [facility] [place] [facility] [address] [id number] [place] [address]- 5897 Aug, [facility] [place] [facility] [address] [id number] [place] [address]- 8823 Aug, [facility] [place] [facility] [address] [id number] [place] [address]- 6562 Aug, [facility] [place] [facility] [address] [id number] [place] [address]- 3658 Aug, [facility] [place] [facility] [address] [id number] [place] [address]- 1045 Aug, [facility] [place] [facility] [address] [id number] [place] [address]- 1305 Aug, [facility] [place] [facility] [address] [id number] [place] [address]- 2661 Aug, [facility] [place] [facility] [address] [id number] [place] [address]- 7489 Aug, [facility] [place] [facility] [address] [id number] [place] [address]- 9067 Aug, [facility] [place] [facility] [address] [id number] [place] [address]- 7346 Aug, [facility] [place] [facility] [address] [id number] [place] [address]- 3234 Aug, [facility] [place] [facility] [address] [id number] [place] [address]- 5383 Aug, [facility] [place] [facility] [address] [id number] [place] [address]- 3836 Aug, [facility] [place] [facility] [address] [id number] [place] [address]- 3050 Jul, [facility] [place] [facility] [address] [id number] [place] [address]- 9269 Jul, [facility] [place] [facility] [address] [id number] [place] [address]- 6137 Jul, [facility] [place] [facility] [address] [id number] [place] [address]- 0449 Jul, [facility] [place] [facility] [address] [id number] [place] [address]- 5767 Jul, [facility] [place] [facility] [address] [id number] [place] [address]- 3092 Jul, [facility] [place] [facility] [address] [id number] [place] [address]- 0365 Jul, [facility] [place] [facility] [address] [id number] [place] [address]- 5338 Jul, [facility] [place] [facility] [address] [id number] [place] [address]- 0005 Jul, [facility] [place] [facility] [address] [facility] [id number] [place] [address]- 9453 Jul, [facility] [place] [facility] [address] [id number] [place] [address]- 1715 Jun, [facility] [place] [facility] [address] [id number] [place] [address]- 4490 Jun, [facility] [place] [facility] [address] [id number] [place] [address]- 1817 Jun, [facility] [place] [facility] [address] [id number] [place] [address]- 9982 16 Jun, 2014 [facility] [place] [facility] [address] [id number] [place] [address]- 4698 15 Jun, 2014 [facility] [place] [facility] [address] [id number] [place] [address]- 6011 15 Jun, 2014 [facility] [place] [facility] [address] [id number] [place] [address]- 9850 Jun, [facility] [place] [facility] [address] [id number] [place] [address]- 1990 Jun, [facility] [place] [facility] [address] [id number] [place] [address]- 3046 Jun, [facility] [place] [facility] [address] [id number] [place] [address]- 8848 Jun, [facility] [place] [facility] [address] [id number] [place] [address]- 9311 29 May, 2014 [facility] [place] [facility] [address] [id number] [place] [address]- 8449 29 May, 2014 [facility] [place] [facility] [address] [id number] [place] [address]- 6441 26 May, 2013 [facility] [place] [facility] [address] [id number] [place] [address]- 2132 26 May, 2014 [facility] [place] [facility] [address] [id number] [place] [address]- 0571 17 May, 2014 [facility] [place] [facility] [address] [id number] [place] [address]- 6969 17 May, 2014 [facility] [place] [facility] [address] [id number] [place] [address]- 2540 15 May, 2013 [facility] [place] [facility] [address] [id number] [place] [address]- 2544 15 May, 2014 [facility] [place] [facility] [address] [id number] [place] [address]- 2547 15 May, 2013 [facility] [place] [facility] [address] [id number] [place] [address]- 1403 15 May, 2013 [facility] [place] [facility] [address] [id number] [place] [address]- 0749 May, [facility] [place] [facility] [address] [id number] [place] [address]- 7918 May, [facility] [place] [facility] [address] [id number] [place] [address]- 6099 May, [facility] [place] [facility] [address] [id number] [place] [address]- 7672 May, [facility] [place] [facility] [address] [id number] [place] [address]- 8297 May, [facility] [place] [facility] [address] [id number] [place] [address]- 5693 May, [facility] [place] [facility] [address] [id number] [place] [address]- 4410 Apr, [facility] [place] [facility] [address] [id number] [place] [address]- 7288 Apr, [facility] [place] [facility] [address] [id number] [place] [address]- 2743 Apr, [facility] [place] [facility] [address] [id number] [place] [address]- 1324 Apr, [facility] [place] [facility] [address] [id number] [place] [address]- 0850 Apr, [facility] [place] [facility] [address] [id number] [place] [address]- 1004 Apr, [facility] [place] [facility] [address] [id number] [place] [address]- 3360 Apr, [facility] [place] [facility] [address] [id number] [place] [address]- 1862 Apr, [facility] [place] [facility] [address] [id number] [place] [address]- 5529 Apr, [facility] [place] [facility] [address] [id number] [place] [address]- 5456 Apr, [facility] [place] [facility] [address] [id number] [place] [address]- 5065 Apr, [facility] [place] [facility] [address] [id number] [place] [address]- 8176 Apr, [facility] [place] [facility] [address] [id number] [place] [address]- 5928 Apr, [facility] [place] [facility] [address] [id number] [place] [address] Apr, [facility] [place] [facility] [address] [id number] [place] [address] Apr, [facility] [place] [facility] [address] [id number] [place] [address] Mar, [facility] [place] [facility] [address] [id number] [place] [address] Mar, [facility] [place] [facility] [address] [id number] [place] [address] Mar, [facility] [place] [facility] [address] [id number] [place] [address] 2680 Mar, [facility] [place] [facility] [address] [id number] [place] [address] Mar, [facility] [place] [facility] [address] [id number] [place] [address] Mar, [facility] [place] [facility] [address] [id number] [place] [address] 134[address] Mar, [facility] [place] [facility] [address] [id number] [place] [address]- 138[address] Mar, [facility] [place] [facility] [address] [id number] [place] [address]598 Mar, [facility] [place] [facility] [address] [id number] [place] [address] 8036 Mar, [facility] [place] [facility] [address] [id number] [place] [address] Mar, [facility] [place] [facility] [address] [id number] [place] [address] Mar, 2013 [facility] [place] [facility] [address] [id number] [place] [address]- [address] Mar, 2013 [facility] [place] [facility] [address] [id number] [place] [address]- [address]294 Mar, 2013 [facility] [place] [facility] [address] [id number] [place] [address]- 3318 Mar, 2013 [facility] [place] [facility] [address] [id number] [place] [address]- [address]38 Mar, 2013 [facility] [place] [facility] [address] [id number] [place] [address]- 5977 Mar, 2013 [facility] [place] [facility] [address] [id number] [place] [address]- [address] Mar, 2013 [facility] [place] [facility] [address] [id number] [place] [address] Feb, [facility] [place] [facility] [address] [id number] [place] [address] 7314 Feb, [facility] [place] [facility] [address] [id number] [place] [address] 4[address] Feb, [facility] [place] [facility] [address] [id number] [place] [address]- 8420 Feb, [facility] [place] [facility] [address] [id number] [address] Feb, [facility] [place] [facility] [address] [id number] [place] [address]- 2564 Feb, [facility] [place] [facility] [address] [id number] [place] [address]- 7298 Feb, [facility] [place] [facility] [address] [id number] [place] [address]- 1045 Feb, [facility] [place] [facility] [address] [id number], [place] [address]- [address] Feb, [facility] [place] [facility] [address] [id number] [place] [address]- 0526 Feb, [facility] [place] [facility] [address] [id number] [place] [address]- 7980 Feb, [facility] [place] [facility] [address] [id number] [place] [address]- 0[address] Feb, [facility] [place] [facility] [address] [id number] [place] [address]- 57[address] Feb, [facility] [place] [facility] [address] [id number] [place] [address]- 5261 Feb, [facility] [place] [facility] [address] [id number] [place] [address] January, [facility] [place] [facility] [address] [id number] [place] [address] January, [facility] [place] [facility] [address] [id number] [place] [address]- 3609 January, [facility] [place] [facility] [address] [id number] [place] [address]- 08[address] January, [facility] [place] [facility] [address] [id number] [place] [address]- 9481 January, [facility] [place] [facility] [address] [id number] [place] [address]- 7916 January, [facility] [place] [facility] [address] [id number] [place] [address]- 8582 January, [facility] [place] [facility] [address] [id number] [place] [address]- 8207 January, [facility] [place] [facility] [address] [id number] [place] [address]- 9190 January, [facility] [place] [facility] [address] [id number] [place] [address]- 495[address] January, [facility] [place] [facility] [address] [id number] [place] [address]- 2293 January, [facility] [place] [facility] [address] [id number] [place] [address]- 8358 January, [facility] [place] [facility] [address] [id number] [place] [address]- 2706 January, [facility] [place] [facility] [address] [id number] [place] [address]- 5712 January, [facility] [place] [facility] [address] [id number] [place] [address]- [address]150 Dec, [facility] [place] [facility] [address] [id number] [place] [address]- 5932 Dec, [facility] [place] [facility] [address] [id number] [place] [address]- 5527 Dec, [facility] [place] [facility] [address] [id number] [place] [address]- 4422 Dec, [facility] [place] [facility] [address] [id number] [place] [address]- 3959 Dec, [facility] [place] [facility] [address] [id number] [place] [address]- 6537 Dec, [facility] [place] [facility] [address] [id number] [place] [address]- [address]109 Dec, [facility] [place] [facility] [address] [id number] [place] [address]- 0777 Dec, [facility] [place] [facility] [address] [id number] [place] [address]- 5648 Dec, [facility] [place] [facility] [address] [id number] [place] [address]- 9264 Dec, [facility] [place] [facility] [address] [id number] [place] [address] Nov, [facility] [place] [facility] [address] [id number] [place] [address] 8323 Nov, [facility] [place] [facility] [address] [id number] [place] [address] 5904 Nov, [facility] [place] [facility] [address] [id number] [place] [address] 5113 Nov, [facility] [place] [facility] [address] [id number] [place] [address]- 0850 Nov, [facility] [place] [facility] [address] [id number] [place] [address]- 1163 Nov, [facility] [place] [facility] [address] [id number] [place] [address]- 6733 Nov, [facility] [place] [facility] [address] [id number] [place] [address] 6450 Nov, [facility] [place] [facility] [address] [facility] [id number] [place] [address]- 0412 Nov, [facility] [place] [facility] [address] [id number] [place] [address]- 7446 Nov, [facility] [place] [facility] [address] [id number] [place] [address] 1101 Oct, [facility] [place] [facility] [address] [facility] [id number] [place] [address]- 7375 Oct, [facility] [place] [facility] [address] [facility] [id number] [place] [address]- 6133 Oct, [facility] [place] [facility] [address] [id number] [place] [address]- 5015 Oct, [facility] [place] [facility] [address] [id number] [place] [address]- 8603 Oct, [facility] [place] [facility] [address] [id number] [place] [address]- 4334 Oct, [facility] [place] [facility] [address] [facility] [id number] [place] [address]- 8440 14 Oct, 2013 [facility] [place] [facility] [address] [id number] [place] [address]- 0328 14 Oct, 2013 [facility] [place] [facility] [address] [id number] [place] [address]- 8436 Oct, [facility] [place] [facility] [address] [id number] [place] [address]- 5343 Oct, [facility] [place] [facility] [address] [id number] [place] [address]- 2681 Oct, [facility] [place] [facility] [address] [id number] [place] [address]- 4605 Oct, [facility] [place] [facility] [address] [id number] [place] [address]- 7196 Oct, [facility] [place] [facility] [address] [id number] [place] [address]- 8352 Oct, [facility] [place] [facility] [address] [id number] [place] [address]- 4919 Sep, [facility] [place] [facility] [address] [id number] [place] [address]- 6275 Sep, [facility] [place] [facility] [address] [id number] [place] [address]- 1034 Sep, [facility] [place] [facility] [address] [id number] [place] [address]- 3483 Sep, [facility] [place] [facility] [address] [id number] [place] [address]- 4914 Sep, [facility] [place] [facility] [address] [id number] [place] [address]- 2269 Sep, [facility] [place] [facility] [address] [id number] [place] [address]- 2398 Sep, [facility] [place] [facility] [address] [id number] [place] [address]- 1417 Sep, [facility] [place] [facility] [address] [id number], [place] [address] 08 Sep, 2013 [facility] [address] [id number] [place] [address]- 8423 Sep, [facility] [place] [facility] [address] [id number] [place] [address]- 8570 Aug, [facility] [place] [facility] [address] [id number] [place] [address]- 9652 Aug, [facility] [place] [facility] [address] [id number] [place] [address]- 0881 Jul, [facility] [place] [facility] [address] [id number] [place] [address]- 4826 Jul, [facility] [place] [facility] [address] [id number] [place] [address]- 4516 Jul, [facility] [address] [id number] [place] [address]- 9007 Jul, [facility] [place] [facility] [address] [id number] [place] [address]- 6820 Jul, [facility] [place] [facility] [address] [id number] [place] [address]- 5169 Jul, [facility] [place] [facility] [address] [id number] [place] [address]- 5450 Jul, [facility] [place] [facility] [address] [id number], [place] [address] 9070 Jul, [facility] [place] [facility] [address] [id number], [place] [address] 9381 Jul, [facility] [place] [facility] [address] [id number], [place] [address]- 5104 Jul, [facility] [place] [facility] [address] [id number] [place] [address]- 3643 Jul, [facility] [place] [facility] [address] [id number] [place] [address]- 9504 Jul, [facility] [place] [facility] [address] [id number] [place] [address]- 5716 Jul, 2012 [facility] [place] [facility] [address] [id number] [place] [address]- 7909 Jul, 2012 [facility] [place] [facility] [address] [id number] [place] [address]- 4605 Jul, 2012 [facility] [place] [facility] [address] [id number] [place] [address]- 8950 Jul, 2012 [facility] [place] [facility] [address] [id number] [place] [address]- 2738 Jul, 2012 [facility] [place] [facility] [address] [id number] [place] [address]- 4307 Jul, 2012 [facility] [place] [facility] [address] [id number] [place] [address]- 1209 Jul, 2012 [facility] [place] [facility] [address] [id number] [place] [address]- 4102 Jun, 2012 [facility] [place] [facility] [address] [id number] [place] [address]- 2675 16 Jun, 2012 [facility] [place] [facility] [address] [id number] [place] [address]- 7448 Jun, 2012 [facility] [place] [facility] [address] [id number] [place] [address]- 0811 16 Jun, 2012 [facility] [place] [facility] [address] [id number] [place] [address]- 2528 16 Jun, 2012 [facility] [place] [facility] [address] [id number] [place] [address]- 2599 16 Jun, 2012 [facility] [place] [facility] [address] [id number] [place] [address]- 5491 10 Jun, 2012 [facility] [place] [facility] [address] [id number] [place] [address]- 6054 10 Jun, 2012 [facility] [place] [facility] [address] [id number] [place] [address]- 0848 Jun, [facility] [place] [facility] [address] [id number] [place] [address]- 1974 Jun, [facility] [place] [facility] [address] [id number] [place] [address]- 8688 Jun, [facility] [place] [facility] [address] [id number] [place] [address]- 3266 May, [facility] [place] [facility] [address] [id number] [place] [address]- 6789 25 May, 2013 [facility] [place] [facility] [address] [id number] [place] [address]- 1171 May, [facility] [place] [facility] [address] [id number] [place] [address]- 6408 17 May, 2013 [facility] [place] [facility] [address] [id number] [place] [address]- 9566 May, [facility] [place] [facility] [address] [id number] [place] [address]- 5479 May, [facility] [place] [facility] [address] [id number] [place] [address]- 5358 May, [facility] [place] [facility] [address] [id number] [place] [address]- 2003 May, [facility] [place] [facility] [address] [id number] [place] [address]- 0912 Apr, [facility] [place] [facility] [address] [id number], [place] [address]- 7578 Apr, [facility] [place] [facility] [address] [id number] [place] [address]- 9621 Apr, [facility] [place] [facility] [address] [id number] [place] [address]- 8014 Apr, [facility] [place] [facility] [address] [id number] [place] [address]- 4182 Apr, [facility] [place] [facility] [address] [id number] [place] [address]- 9286 Mar, [facility] [address] [id number] [place] [address]- 2420 Mar, [facility] [place] [facility] [address] [id number] [place] [address]- 9553 Mar, [facility] [address] [id number] [place] [address]- 2417 Mar, [facility] [place] [facility] [address] [id number] [place] [address]- 6873 Mar, [facility] [place] [facility] [address] [id number] [place] [address]- 8676 Mar, [facility] [place] [facility] [address] [id number] [place] [address]- 2080 Mar, [facility] [address] [id number] [place] [address]- 0142 Mar, [facility] [place] [facility] [address] [id number] [place] [address]- 0103 Feb, [facility] [place] [facility] [address] [id number] [place] [address]- 1212 Feb, [facility] [place] [facility] [address] [id number] [place] [address]- 1808 January, [facility] [place] [facility] [address] [id number] [place] [address]- 9128 January, [facility] [place] [facility] [address] [id number] [place] [address]- 5711 Dec, [facility] [place] [facility] [address] [id number] [place] [address]- 2133 Dec, [facility] [place] [facility] [address] [id number] [place] [address]- 0034 Nov, [facility] [place] [facility] [address] [id number] [place] [address]- 9579 Nov, [facility] [place] [facility] [address] [id number] [place] [address]- 0365 Nov, [facility] [address] [id number] [place] [address]- 5066 Nov, [facility] [place] [facility] [address] [id number] [place] [address] 2546 Oct, [facility] [place] [facility] [address] [id number] [place] [address]- 0106 Oct, [facility] [place] [facility] [address] [id number] [place] [address]- 0761 Oct, [facility] [place] [facility] [address] [id number] [place] [address]- 7646 Oct, [facility] [place] [facility] [address] [id number] [place] [address]- 9632 16 Oct, 2012 [facility] [address] [id number] [place] [address]- 8348 14 Oct, 2012 [facility] [place] [facility] [address] [id number] [place] [address]- 4571 08 Oct, 2012 [facility] [place] [facility] [address] [id number] [place] [address]- 1702 Oct, [facility] [place] [facility] [address] [id number] [place] [address]- 6923 Oct, [facility] [place] [facility] [address] [id number] [place] [address]- 254 Sep, [facility] [place] [facility] [address] [id number] [place] [address]- 9820 Sep, [facility] [place] [facility] [address] [id number] [place] [address]- 5966 Sep, [facility] [place] [facility] [address] [id number] [place] [address]- 7661 Sep, [facility] [place] [facility] [address] [id number] [place] [address]- 9431 17 Sep, 2012 [facility] [address] [id number] [place] [address]- 9884 10 Sep, 2012 [facility] [place] [facility] [address] [id number] [place] [address]- 0206 09 Sep, 2012 [facility] [address] [id number] [place] [address]- 1192 08 Sep, 2012 [facility] [place] [facility] [address] [id number] [place] [address]- 0744 31 Aug, 2012 [facility] [address] [id number] [place] [address]- 7292 31 Aug, 2012 [facility] [place] [facility] [address] [id number] [place] [address]- 7520 Aug, [facility] [address] [id number] [place] [address]- 5741 Aug, [facility] [place] [facility] [address] [id number] [place] [address]- 0113 Aug, [facility] [place] [facility] [address] [id number] [place] [address]- 5100 Aug, [facility] [place] [facility] [address] [id number] [place] [address]- 9451 Aug, [facility] [place] [facility] [address] [id number] [place] [address]- 7684 Aug, [facility] [place] [facility] [address] [id number] [place] [address]- 9974 Jul, [facility] [place] [facility] [address] [id number] [place] [address]- 0577 Jul, [facility] [place] [facility] [address] [id number] [place] [address]- 6488 Jul, [facility] [place] [facility] [address] [id number] [place] [address]- 4939 Jul, [facility] [place] [facility] [address] [id number] [place] [address]- 8832 Jul, [facility] [place] [facility] [address] [id number] [place] [address]- 3839 Jul, [facility] [place] [facility] [address] [id number] [place] [address]- 9335 Jun, [facility] [place] [facility] [address] [id number] [place] [address]- 5730 Jun, [facility] [place] [facility] [address] [id number] [place] [address]- 8477 Jun, [facility] [place] [facility] [address] [id number] [place] [address]- 9914 Jun, [facility] [place] [facility] [address] [id number] [place] [address]- 1584 Jun, [facility] [place] [facility] [address] [id number] [place] [address]- 7064 Jun, [facility] [place] [facility] [address] [id number] [place] [address]- 9775 Jun, [facility] [place] [facility] [address] [id number] [place] [address]- 8808 Jun, [facility] [place] [facility] [address] [id number] [place] [address]- 6008 Jun, [facility] [place] [facility] [address] [id number] [place] [address]- 6031 26 May, 2012 [facility] [place] [facility] [address] [id number] [place] [address]- 2708 24 May, 2012 [facility] [place] [facility] [address] [id number] [place] [address]- 6212 18 May, 2012 [facility] [place] [facility] [address] [id number] [place] [address]- 6201 30 Apr, 2012 [facility] [place] [facility] [address] [id number] [place] [address]- 4866 Apr, [facility] [place] [facility] [address] [id number] [place] [address]- 0669 Apr, [facility] [place] [facility] [address] [id number] [place] [address]- 4649 Apr, [facility] [place] [facility] [address] [id number] [place] [address]- 5067 Apr, [facility] [place] [facility] [address] [id number] [place] [address]- 8067 Apr, [facility] [place] [facility] [address] [id number] [place] [address]- 4068 Mar, [facility] [place] [facility] [address] [id number] [place] [address]- 8998 Mar, [facility] [place] [facility] [address] [id number] [place] [address]- 8560 Mar, [facility] [place] [facility] [address] [id number] [place] [address]- 9663 Mar, [facility] [place] [facility] [address] [id number] [place] [address]- 1408 Feb, [facility] [place] [facility] [address] [id number] [place] [address]- 2188 Feb, [facility] [place] [facility] [address] [id number] [place] [address]- 0842 Feb, [facility] [place] [facility] [address] [id number] [place] [address]- 6792 Feb, [facility] [place] [facility] [address] [id number] [place] [address]- 9488 Feb, [facility] [place] [facility] [address] [id number] [place] [address]- 5074 January, [facility] [place] [facility] [address] [id number] [place] [address]- 7550 January, [facility] [place] [facility] [address] [id number] [place] [address]- 7714 January, [facility] [address] [id number] [place] [address]- 0367 January, [facility] [address] [id number] [place] [address]- 5576 January, [facility] [address] [id number] [place] [address]- 7761 January, [facility] [address] [id number] [place] [address]- 8809 Dec, [facility] [address] [id number] [place] [address]- 5218 Dec, [facility] [address] [id number] [place] [address]- 2717 Dec, [facility] [address] [id number] [place] [address]- 0216 Dec, [facility] [address] [id number] [place] [address]- 9232 Dec, [facility] [address] [id number] [place] [address]- 3161 Nov, [facility] [address] [id number] [place] [address]- 7983 Nov, [facility] [address] [id number] [place] [address]- 4989 Nov, [facility] [address] [id number] [place] [address]- 1354 Nov, [facility] [address] [id number] [place] [address]- 2137 Oct, [facility] [address] [id number] [place] [address]- 7126 Oct, [facility] [address] [id number] [place] [address]- 5259 Oct, [facility] [place] [facility] [address] [id number] [place] [address]- 1047 Oct, [facility] [place] [facility] [address] [id number] [place] [address]- 1356 Oct, [facility] [place] [facility] [address] [id number] [place] [address]- 2824 Sep, [facility] [place] [facility] [address] [id number] [place] [address]- 9658 Sep, [facility] [place] [facility] [address] [id number] [place] [address]- 2048 Sep, [facility] [place] [facility] [address] [id number] [place] [address]- 6203 Sep, [facility] [place] [facility] [address] [id number] [place] [address]- 1649 Sep, [facility] [place] [facility] [address] [id number] [place] [address]- 2179 Sep, [facility] [place] [facility] [address] [id number] [place] [address]- 5768 Aug, [facility] [place] [facility] [address] [id number] [place] [address]- 1206 Aug, [facility] [place] [facility] [address] [id number] [place] [address]- 2462 Aug, [facility] [place] [facility] [address] [id number], [place] [address]- 9765 Jul, [facility] [place] [facility] [address] [id number] [place] [address]- 4188 Jul, [facility] [place] [facility] [address] [id number] [place] [address]- 7486 Jul, [facility] [place] [facility] [address] [id number] [place] [address]- 5610 Jul, [facility] [place] [facility] [address] [id number] [place] [address] 31 Jun, 2011 [facility] [place] [facility] [address] [id number] [place] [address] 31 Jun, 2011 [facility] [place] [facility] [address] [id number] [place] [address] 18 Jun, 2011 [facility] [place] [facility] [address] [id number] [place] [address] 10 Jun, 2011 [facility] [place] [facility] [address] [id number] [place] [address]206 10 Jun, 2011 [facility] [place] [facility] [address] [id number] [place] [address] 10 Jun, 2011 [facility] [place] [facility] [address] [id number] [place] [address] 11 Mar, 2011 [facility] [place] [facility] [address] [id number] [place] [address] 164[address] 18 Dec, 2010 [facility] [place] [facility] [address] [id number] [place] [address] 11 Dec, 2010 [facility] [place] [facility] [address] [id number] [place] [address] 18 Nov, 2010 [facility] [place] [facility] [address] [facility] [id number] [place] [address]03 16 Nov, 2010 [facility] [place] [facility] [address] [id number] [place] [address] Sep, [facility] [place] [facility] [address] [id number] [place] [address] Aug, [facility] [place] [facility] [address] [id number] [place] [address] 7984 Aug, [facility] [place] [facility] [address] [id number] [place] [address] Aug, [facility] [place] [facility] [address] [id number] [place] [address] Aug, [facility] [place] [facility] [address] [id number] [place] [address] Aug, [facility] [place] [facility] [address] [id number] [place] [address] 74[address] 14 Aug, 2010 [facility] [place] [facility] [address] [id number] [place] [address] 8[address] 08 Aug, 2010 [facility] [place] [facility] [address] [id number] [place] [address] 08 Aug, 2010 [facility] [address] [id number] [place] [address] 07 Aug, 2010 [facility] [place] [facility] [address] [id number] [place] [address] 6[address] Aug, [facility] [address] [id number] [place] [address] Aug, [facility] [address] [id number] [place] [address] Aug, [facility] [place] [facility] [address] [id number] [place] [address] 85[address] Jul, [facility] [place] [facility] [address] [id number] [place] [address] Jul, [facility] [place] [facility] [address] [id number] [place] [address] 30 Jul, 2010 [facility] [place] [facility] [address] [id number] [address] 17 Jul, 2010 [facility] [place] [facility] [address] [id number] [place] [address] Jul, [facility] [place] [facility] [address] [id number] [place] [address] 24[address] Jul, [facility] [place] [facility] [address] [id number] [place] [address] 7045 24 Jun, 2010 [facility] [place] [facility] [address] [id number] [place] [address] 8101 Jun, [facility] [place] [facility] [address] [id number] [place] [address] 6615 19 Jun, 2010 [facility] [place] [facility] [address] [id number] [place] [address]205 13 Jun, 2010 [facility] [place] [facility] [address] [id number] [place] [address] 2546 16 Apr, 2010 [facility] [place] [facility] [address] [id number] [place] [address] Mar, [facility] [place] [facility] [address] [id number] [place] [address] Feb, [facility] [place] [facility] [address] [id number] [place] [address]45 January, [facility] [place] [facility] [address] [id number] [place] [address] 15 Dec, 2009 [facility] [place] [facility] [address] [id number] [place] [address] 36[address] Nov, [facility] [place] [facility] [address] [id number] [place] [address] 3812 31 Aug, 2009 [facility] [place] [facility] [address] [id number] [place] [address] 2719 Aug, [facility] [place] [facility] [address] [id number], [place] [address] Aug, [facility] [place] [facility] [address] [id number], [place] [address] 9211 Jul, [facility] [place] [facility] [address] [id number] [place] [address] 1354 Jul, [facility] [place] [facility] [address] [id number] [address] 07 Jul, 2009 [facility] [place] [facility] [address] [id number] [place] [address] 30 Jun, 2009 [facility] [place] [facility] [address] [address] Jun, [facility] [address] [address] Jun, [facility] [address], [place] [address] Jun, [facility] [address] [address] Jun, [facility] [address] [address] Jun, [facility] [id number] [place] [address] Apr, [facility] [address], [place] [address] Apr, [facility] [id number], [place] [address] Feb, [facility] [address], [place] [address] January, [facility] [address], [place] [address] Dec, IMMUNIZATIONS No Known Immunizations SOCIAL HISTORY Never Assessed REASON FOR VISIT Controlled Med Refill 12/19/17 PLAN OF CARE VITAL SIGNS MEDICATIONS Medication Instructions Dosage Frequency Start Date End Date Duration Status Percocet 10-325 MG Orally 4 times a day 1 tablet as needed 6h Nov, 28 days Active RESULTS No Results PROCEDURES [...] tunnel release (Left) 2000 Surgical History EGD ([facility]) 2009 Surgical History colonoscopy 2009 ([facility]), 2013 ([place]) Surgical History heart cath: CAD w/ PTCA [...] History inability to urinate 09/16/15 Hospitalization History [facility] mental health early Hospitalization History hyperkalemia 10/2017 Hospitalization History fluid in lung
--- OUTSIDE RECORDS SUMMARY | 2018-08-08 14:31 | XMS REPORT ---
Author Author ROSELINE LUIS Organization [facility] [place] Address [address] [place] [address] Care Team Providers Care Stenotype Operator Name Role Phone ROSELINE LUIS Unavailable PROBLEMS Type Condition ICD9-CM Code AZO89-IR Code Onset Dates Condition Status SNOMED Code Problem Chronic lymphocytic leukemia C91.10 Active 39979027 Problem Insomnia, unspecified type G47.00 Active 568952330 Problem Lymphocytosis D72.820 Active 20026829 Problem Anxiety F41.9 Active 94559477 Problem Eye exam abnormal R93.8 Active 707430909 Problem Morbid obesity E66.01 Active 262359956 Problem Diabetic polyneuropathy associated with type 2 diabetes mellitus E11.42 Active 23335772 Problem Essential hypertension I10 Active 85713663 Problem Falling R29.6 Active 407818291 Problem 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 Active 066128409 Problem Cough R05 Active 32718821 Problem Dysuria R30.0 Active 49266242 Problem Eustachian tube dysfunction, unspecified laterality H69.80 Active 44563677 Problem Bilateral primary osteoarthritis of knee M17.0 Active 196008160 Problem Polyneuropathy associated with underlying disease G63 Active 000786154 Problem Anemia of chronic illness D63.8 Active 092584456 Problem Retinal edema H35.81 Active 9144773 Problem DM neuro manif type II E11.49 Active 86474936 Problem Diabetes E11.9 Active 66895933 Problem Hypokalemia E87.6 Active 14989821 Problem Benign prostatic hyperplasia with lower urinary tract symptoms, unspecified morphology N40.1 Active 284245114 Problem Reactive airway disease J45.909 Active 240401705958 Problem Bipolar I disorder, most recent episode (or current) mixed, moderate F31.62 Active 57634275 Problem Chronic pain G89.29 Active 97324657 Problem Leukocytosis D72.829 Active 957290513 ALLERGIES No Information ENCOUNTERS Encounter Location Date Diagnosis [facility] [place] [id number] [address] Apr, [facility] [place] [id number] [address] Apr, [facility] [place] [id number] [address] Mar, [facility] [place] [id number] [address] 1998 Mar, [facility] [place] [id number] [place] [address] 67231- 1424 Mar, [facility] [place] [id number] [place] [address] 88484- 1848 Mar, Chronic pain G89.29 [facility] [place] [address] [address] Mar, Bipolar I disorder, most recent episode (or current) mixed, moderate F31.62 [facility] [place] [address] [address] Feb, Bipolar I disorder, most recent episode (or current) mixed, moderate F31.62 [facility] [place] [id number] [address] Feb, Chronic pain G89.29 [facility] [place] [address] [address] Feb, Decubitus ulcer of right foot, stage 3 L89.893 and BMI 50.0- 59.9, adult Z68.43 [facility] [place] [address] [address] Feb, Bipolar I disorder, most recent episode (or current) mixed, moderate F31.62 [facility] [place] [id number] [address] Feb, [facility] [place] [id number] [address] January, [facility] [id number] [place] [address] 37669- 2333 January, Chronic pain G89.29 [facility] [address] [id number] [place] [address] 53458- 5996 January, Bipolar I disorder, most recent episode (or current) mixed, moderate F31.62 [facility] [id number] [place] [address] 78784- 4428 January, Bipolar I disorder, most recent episode (or current) mixed, moderate F31.62 [facility] [id number] [place] [address] 06171- 6374 Dec, Bipolar I disorder, most recent episode (or current) mixed, moderate F31.62 and BMI 50.0-59.9, adult Z68.43 [facility] [address] [place] [id number] [place] [address] 76967- 9146 Dec, Bipolar I disorder, most recent episode (or current) mixed, moderate F31.62 [facility] [address] [place] [id number] [place] [address] 81118- 0652 Dec, Chronic pain G89.29 [facility] [id number] [place] [address] 73788- 3513 Dec, DM neuro manif type II E11.49 ; Right flank pain R10.9 ; 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 ; Encounter for medication monitoring Z51.81 and BMI 50.0-59.9, adult Z68.43 [facility] [id number] [place] [address] 87706- 0350 Dec, Bipolar I disorder, most recent episode (or current) mixed, moderate F31.62 [facility] [id number] [place] [address] 16627- 3211 Nov, Bipolar I disorder, most recent episode (or current) mixed, moderate F31.62 [facility] [id number] [place] [address] 93277- 5363 Nov, Chronic pain G89.29 [facility] [place] [id number] [place] [address] Nov, Bipolar I disorder, most recent episode (or current) mixed, moderate F31.62 [facility] [place] [id number] [place] [address] 34547- 9652 Nov, Hypokalemia E87.6 [facility] [address] 686016- 0664 Nov, Bipolar I disorder, most recent episode (or current) mixed, moderate F31.62 [facility] [address] 175278- 0204 Oct, Chronic pain G89.29 [facility] [address] [id number] [place] [address] 59630- 9724 Oct, BMI 50.0-59.9, adult Z68.43 and Bipolar I disorder, most recent episode (or current) mixed, moderate F31.62 [facility] [address] [address] [id number] [place] [address] 74873- 8760 Oct, Bipolar I disorder, most recent episode (or current) mixed, moderate F31.62 [facility] [address] [id number] [place] [address] 28369- 8824 Oct, [facility] [address] [id number] [place] [address] 48569- 8137 Oct, Hypokalemia E87.6 [facility] [address] [address] [id number] [place] [address] 86411- 9263 Oct, DM neuro manif type II E11.49 [facility] [id number] [place] [address] 14739- 7761 Oct, Bipolar I disorder, most recent episode (or current) mixed, moderate F31.62 [facility] [address] [address] [id number] [place] [address] 24653- 5420 20 Oct, 2017 Bipolar I disorder, most recent episode (or current) mixed, moderate F31.62 [facility] [address] 75655- 9975 14 Oct, 2017 Hyperkalemia E87.5 ; Falling R29.6 ; BMI 50.0-59.9, adult Z68.43 and Acute left ankle pain M25.572 [facility] [address] 69247- 9833 08 Oct, 2017 DM neuro manif type II E11.[address] 19500- 2199 Oct, [facility] [facility] [address] 34956- 0310 Sep, Chronic pain G89.29 [facility] [address] 88956- 5828 Sep, [facility] [facility] [address] 45434- 4205 Sep, Bilateral primary osteoarthritis of knee M17.[address] 45533- 3914 Sep, Generalized edema R60.[address] 48421- 0489 Sep, Bipolar I disorder, most recent episode (or current) mixed, moderate F31.62 [facility] [address] 71839- 3082 15 Sep, 2017 Hypoxia R09.02 ; Other hypervolemia E87.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 ; Anemia of chronic illness D63.8 and BMI 50.0- 59.9, adult Z68.43 [facility] [address] 32517- 6361 Sep, [facility] [place] [address] [address]- 6380 Sep, Bipolar I disorder, most recent episode (or current) mixed, moderate F31.62 [facility] [place] [address] [id number] [place] [address] 17714- 7926 Aug, Chronic pain G89.29 [facility] [place] [id number] [place] [address] 65832- 0126 Aug, Generalized edema R60.1 [facility] [place] [address] [id number] [place] [address] 56167- 0166 Aug, [facility] [place] [id number] [place] [address] 951106- 4898 Aug, [facility] [place] [address] [id number] [place] [address] 26001- 7122 14 Aug, 2017 Bipolar I disorder, most recent episode (or current) mixed, moderate F31.62 [facility] [place] [id number] [place] [address] 25332- 6918 07 Aug, 2017 Bipolar I disorder, most recent episode (or current) mixed, moderate F31.62 [facility] [place] [id number] [place] [address] 15277- 1255 04 Aug, 2017 Chronic pain G89.29 [facility] [place] [id number] [place] [address] 32484- 6506 30 Jul, 2017 Bipolar I disorder, most recent episode (or current) mixed, moderate F31.62 [facility] [place] [address] [address]- 7239 Jul, Bipolar I disorder, most recent episode (or current) mixed, moderate F31.62 and BMI 60.0-69.9, adult Z68.44 [facility] [place] [address] [address]- 0272 16 Jul, 2017 Bipolar I disorder, most recent episode (or current) mixed, moderate F31.62 [facility] [place] [id number] [place] [address] 56664- 5486 Jul, Chronic pain G89.29 [facility] [place] [id number] [place] [address] Jul, Bipolar I disorder, most recent episode (or current) mixed, moderate F31.62 [facility] [place] [address] [id number] [place] [address] 001012- 8258 Jun, Polyneuropathy associated with underlying disease G63 and Diabetes E11.9 [facility] [place] [address] [id number] [place] [address] 91255- 0853 Jun, Bipolar I disorder, most recent episode (or current) mixed, moderate F31.62 [facility] [place] [address] [address] [id number] [place] [address] 06642- 1947 Jun, Chronic pain G89.29 [facility] [place] [address] [id number] [place] [address] 92023- 9401 27 May, 2017 Bipolar I disorder, most recent episode (or current) mixed, moderate F31.62 [facility] [place] [address] [address] [id number] [place] [address] 47008- 6485 21 May, 2017 Bipolar I disorder, most recent episode (or current) mixed, moderate F31.62 [facility] [place] [id number] [place] [address] 42602- 1344 20 May, 2017 Diabetic polyneuropathy associated with type 2 diabetes mellitus E11.42 [facility] [place] [id number] [place] [address] 97777- 1608 18 May, 2017 Bipolar I disorder, most recent episode (or current) mixed, moderate F31.62 [facility] [place] [address] [place] [id number] [place] [address] 39138- 4239 13 May, 2017 Bipolar I disorder, most recent episode (or current) mixed, moderate F31.62 [facility] [place] [address] [place] [id number] [place] [address] 49005- 9589 May, Chronic pain G89.29 [facility] [place] [id number] [place] [address] 40600- 9471 Apr, Bipolar I disorder, most recent episode (or current) mixed, moderate F31.62 [facility] [place] [address] [id number] [place] [address] 29030- 0139 Apr, [facility] [place] [address] [address] [id number] [place] [address] 10270- 0253 Apr, Chronic pain G89.29 and DM neuro manif type II E11.49 [facility] [place] [address] [id number] [place] [address] 88877- 0596 Apr, [facility] [place] [address] [id number] [place] [address] 18278- 0984 Apr, Bipolar I disorder, most recent episode (or current) mixed, moderate F31.62 [facility] [place] [address] [id number] [place] [address] 01777- 2940 Apr, Chronic pain G89.29 [facility] [place] [address] [address] [id number] [place] [address] 34555- 0191 Apr, Iliotibial band syndrome, left M76.32 [facility] [place] [address] [id number] [place] [address] 16166- 6348 Apr, Bipolar I disorder, most recent episode (or current) mixed, moderate F31.62 [facility] [place] [id number] [place] [address] 63428- 5826 Mar, Bipolar I disorder, most recent episode (or current) mixed, moderate F31.62 [facility] [place] [address] [id number] [place] [address] 98059- 1561 Mar, Bipolar I disorder, most recent episode (or current) mixed, moderate F31.62 [facility] [place] [id number] [place] [address] 18190- 3260 Mar, [facility] [place] [address] [id number] [place] [address] 28462- 2294 Mar, Bipolar I disorder, most recent episode (or current) mixed, moderate F31.62 [facility] [place] [id number] [place] [address] 98096- 0525 Mar, Chronic pain G89.29 [facility] [place] [address] [place] [address] 45562- 3102 Mar, Bipolar I disorder, most recent episode (or current) mixed, moderate F31.62 [facility] [place] [address] [place] [address] 84998- 7406 Mar, Bipolar I disorder, most recent episode (or current) mixed, moderate F31.62 [facility] [place] [address] [place] [address] 82783- 7032 Mar, Acute pain of left knee M25.562 ; Left hip pain M25.552 ; Generalized edema R60.1 and Tongue swelling R22.0 [facility] [place] [address] [id number] [place] [address] 91946- 1285 Mar, [facility] [place] [address] [place] [id number] [place] [address] 30676- 4574 Feb, Chronic pain G89.29 [facility] [place] [address] [place] [address] 64028- 1831 Feb, Diabetes E11.9 [facility] [place] [address] [place] [address] 26376- 9838 January, Chronic pain G89.29 [facility] [place] [address] [place] [address] 16941- 2514 January, [facility] [place] [address] [place] [id number] [place] [address] 40709- 4217 January, Bipolar I disorder, most recent episode (or current) mixed, moderate F31.62 [facility] [place] [address] [address]- 9863 Dec, Bipolar I disorder, most recent episode (or current) mixed, moderate F31.62 [facility] [place] [address] [address]- 7106 Dec, Chronic pain G89.29 [facility] [place] [address] [place] [address] 78787 2546 Dec, Bipolar I disorder, most recent episode (or current) mixed, moderate F31.62 [facility] [place] [address] [id number] [place] [address] 14391- 5326 Dec, Diabetes E11.9 ; Essential hypertension I10 ; Chronic pain G89.29 and Morbid obesity E66.01 [facility] [place] [id number] [place] [address] 33411- 0166 Dec, [facility] [place] [id number] [place] [address] 98096- 8227 Dec, Bipolar I disorder, most recent episode (or current) mixed, moderate F31.62 [facility] [place] [id number] [place] [address] 43148- 0388 Dec, Bipolar I disorder, most recent episode (or current) mixed, moderate F31.62 [facility] [place] [id number] [place] [address] 45555- 5699 Nov, Chronic pain G89.29 [facility] [place] [address] [address]- 9088 Nov, Bipolar I disorder, most recent episode (or current) mixed, moderate F31.62 [facility] [place] [address] [place] [address] 93510- 8114 Nov, [facility] [place] [address] [id number] [place] [address] 52269- 7109 Nov, Bipolar I disorder, most recent episode (or current) mixed, moderate F31.62 [facility] [place] [address] [address]- 9939 Nov, Bipolar I disorder, most recent episode (or current) mixed, moderate F31.62 [facility] [place] [address] [address]- 9206 Nov, [facility] [place] [address] [id number] [place] [address] 17650- 2189 Nov, [facility] [place] [id number] [place] [address] 93606- 1018 Nov, [facility] [place] [address] [id number] [place] [address] 37770- 0271 Oct, Chronic pain G89.29 [facility] [place] [address] [id number] [place] [address] 64019- 1030 Oct, Bipolar I disorder, most recent episode (or current) mixed, moderate F31.62 [facility] [place] [address] [id number] [place] [address] 36894- 4395 Oct, [facility] [place] [address] [id number] [place] [address] 91432- 6608 Oct, Chronic pain G89.29 ; Diabetes E11.9 ; Anxiety F41.9 and 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 [facility] [place] [address] [place] [address] 27308- 6287 Oct, [facility] [place] [id number] [place] [address] 99853- 9611 Oct, Diabetes E11.9 [facility] [place] [address] [id number] [place] [address] 02244- 5723 Oct, Bipolar I disorder, most recent episode (or current) mixed, moderate F31.62 [facility] [place] [address] [id number] [place] [address] 38363- 6467 Sep, Chronic pain G89.29 [facility] [place] [id number] [place] [address] 28886- 4995 Sep, Chronic pain G89.29 [facility] [place] [address] [address] [address]- 3933 Aug, Chronic pain G89.29 [facility] [place] [id number] [place] [address] 72603- 0216 Jul, [facility] [place] [id number] [place] [address] 89716- 0296 Jul, Diabetes E11.9 [facility] [place] [id number] [place] [address] 79710- 8979 Jul, Chronic pain G89.29 [facility] [place] [id number] [place] [address] 21621- 6491 Jul, Bipolar I disorder, most recent episode (or current) mixed, moderate F31.62 [facility] [place] [id number] [place] [address] 62586- 5222 Jun, Bipolar I disorder, most recent episode (or current) mixed, moderate F31.62 [facility] [place] [id number] [place] [address] 91189- 7972 Jun, [facility] [place] [id number] [place] [address] 58463- 4993 Jun, Bipolar I disorder, most recent episode (or current) mixed, moderate F31.62 [facility] [place] [address] [place] [address] 20720- 6512 30 May, 2016 Insomnia, unspecified type G47.00 [facility] [place] [address] [place] [address] 00665- 2870 22 May, 2016 Bipolar I disorder, most recent episode (or current) mixed, moderate F31.62 [facility] [place] [id number] [place] [address] 28419- 9036 14 May, 2016 [facility] [place] [id number] [place] [address] 04494- 9580 08 May, 2016 Bipolar I disorder, most recent episode (or current) mixed, moderate F31.62 [facility] [place] [id number] [place] [address] 05535- 0536 May, Diabetes E11.9 and Essential hypertension I10 [facility] [place] [id number] [place] [address] 94573- 4393 Apr, Chronic pain G89.29 [facility], [place] [id number] [place] [address] 40327- 7914 Apr, Bipolar I disorder, most recent episode (or current) mixed, moderate F31.62 [facility], [place] [id number] [place] [address] 57814- 2760 Apr, [place] [id number] [place] [address] [phone]- 6097 Apr, [facility], [place] [id number] [place] [address] [phone]- 0560 Mar, Chronic pain G89.29 ; Headache, unspecified headache type R51 ; Neuropathy G62.9 ; Pain of right hip joint M25.551 and Essential hypertension I10 [facility], [place] [id number] [place] [address] 35754- 8101 Mar, Chronic pain G89.29 [facility] [id number] [place] [address] 04310- 9334 Mar, Bipolar I disorder, most recent episode (or current) mixed, moderate F31.62 [facility] [id number] [place] [address] [phone]- 1816 Feb, Bipolar I disorder, most recent episode (or current) mixed, moderate F31.62 and Insomnia, unspecified type G47.00 [facility] [id number] [place] [address] 63280- 1958 Feb, Chronic pain G89.29 [facility], [place] [id number] [place] [address] 28080- 2062 Feb, Bipolar I disorder, most recent episode (or current) mixed, moderate F31.62 [facility] [id number] [place] [address] [phone]- [phone] January, Bipolar I disorder, most recent episode (or current) mixed, moderate F31.62 [facility], [place] [id number] [place] [address] 60961- 8063 January, Chronic pain G89.29 [facility], [place] [id number] [place] [address] 44867- 5354 January, Chronic pain G89.29 and Essential hypertension I10 [facility], [place] [id number] [place] [address] 37368- 0775 January, Bipolar I disorder, most recent episode (or current) mixed, moderate F31.62 [facility], [place] [id number] [place] [address] 17634- 6673 Dec, [facility], [place] [id number] [place] [address] 80689- 5205 Dec, [facility], [place] [id number] [place] [address] 24483- 9151 Dec, [facility], [place] [id number] [place] [address] 29372- 1773 Dec, [facility], [place] [id number] [place] [address] 14103- 2000 Nov, Reactive airway disease J45.909 [facility], [place] [id number] [place] [address] 51994- 7921 Nov, [facility], [place] [id number] [place] [address] 25228- 8471 Nov, [facility], [place] [id number] [place] [address] 33844- 1527 30 Nov, 2015 [facility], [place] [id number] [place] [address] 36210- 0106 Nov, [facility], [place] [id number] [place] [address] 25303- 4407 Nov, Onychomycosis B35.1 ; Hammertoe M20.40 ; [place] or callus L84 and DM neuro manif type II E11.49 [place] [address] 22799- 5326 Nov, Chronic pain G89.29 ; Leukocytosis D72.829 and Diabetes E11.9 [place] [address] 92850- 9383 Nov, [place] [address] 321786- 7276 Oct, Bronchitis J40 [place] [address] 37872- 1399 Oct, [place] [address] 86917- 8741 Oct, [place] [address] 48861- 3038 Oct, Mastoiditis, unspecified laterality H70.90 and Type 2 diabetes mellitus with complication E11.8 [place] [address] 12838- 1806 Sep, [place] [address] 85426- 9755 Sep, Dysuria R30.0 ; Cough R05 ; Benign prostatic hyperplasia with lower urinary tract symptoms, unspecified morphology N40.1 ; Hypokalemia E87.6 and Eustachian tube dysfunction, unspecified laterality H69.80 [place] [address] 91440- 5814 Sep, Moderate mixed bipolar I disorder F31.62 [place] [address] 07211- 4316 Sep, Hypokalemia E87.[address] 06793- 9281 Sep, [id number] [address] 2980 Sep, Upper respiratory tract infection, unspecified type J06.9 [facility], [place] [address] [id number] [address] 3729 Aug, [facility], [place] [id number] [address]- 9522 Aug, Dysuria R30.0 [facility], [place] [id number] [place] [address] 90621- 2443 Aug, [facility], [place] [id number] [place] [address] 46392- 5158 Jul, [facility], [place] [id number] [place] [address] 99557- 4304 Jul, [facility], [place] [id number] [place] [address] 18223- 0347 Jul, [facility], [place] [id number] [place] [address] 26557- 4306 Jul, [facility], [place] [id number] [place] [address] 56622- 3038 Jun, [facility], [place] [id number] [address]- 4718 Jun, [facility], [place] [id number] [address]- 0053 Jun, [facility], [place] [id number] [address]- 3237 29 May, 2015 [facility], [place] [id number] [place] [address] 57666- 5298 25 May, 2015 Bipolar I disorder, most recent episode (or current) mixed, moderate 296.62 [facility], [place] [id number] [address]- 6470 16 May, 2015 [facility], [place] [id number] [place] [address] 80699- 9730 May, Bipolar I disorder, most recent episode (or current) mixed, moderate 296.62 and Major depressive disorder, recurrent episode, severe, specified as with psychotic behavior 296.34 [facility], [place] [id number] [place] [address] 871660- 2833 May, Bipolar I disorder, most recent episode (or current) mixed, moderate 296.62 [facility], [place] [id number] [place] [address] 660393- 3672 May, [facility], [place] [id number] [place] [address] 68092- 9765 Apr, [facility], [place] [id number] [place] [address] 93329- 7792 Apr, [facility], [place] [id number] [place] [address] 23949- 7860 Apr, Unspecified disorder of kidney and ureter 593.9 and Diabetes mellitus type 2, uncontrolled 250.02 [facility], [place] [id number] [place] [address] 05560- 2512 Apr, [facility], [place] [id number] [place] [address] 94963- 9617 Apr, [facility], [place] [id number] [place] [address] 93977- 0258 Apr, [facility], [place] [id number] [place] [address] 59979- 7334 Apr, [facility], [place] [id number] [place] [address] 94448- 1093 Apr, Diabetes mellitus type II, uncontrolled 250.02 [facility], [place] [id number] [place] [address] 52316- 2281 Apr, [facility], [place] [id number] 7166 Mar, [facility], [place] [id number] [place] [address] [id number]- 5483 Mar, [facility], [place] [address] [address]- 6125 Mar, [facility], [place] [id number] [place] [address] 180638- 9838 Mar, Major depressive disorder, recurrent episode, severe, specified as with psychotic behavior 296.34 and Bipolar I disorder, most recent episode (or current) mixed, moderate 296.62 [facility], [place] [id number] [place] [address] 885417- 7106 Mar, Diabetes 250.00 ; Anuria 788.5 ; Nausea and vomiting 787.01 and Diarrhea 787.91 [facility], [place] [id number] [place] [address] 56593- 0777 Mar, Diabetes 250.00 [facility], [place] [id number] [place] [address] 84331- 2656 Mar, [facility], [place] [id number] [place] [address] 05458- 5543 Mar, Diabetes 250.00 [facility], [place] [id number] [place] [address] 55619- 7269 Mar, [facility], [place] [id number] [place] [address] 90595- 3860 Mar, [facility], [place] [address] [address]- 7990 Mar, [facility], [place] [id number] [place] [address] 31186- 8435 Mar, [facility], [place] [address] [address] 1159 Mar, Bipolar I disorder, most recent episode (or current) mixed, moderate 296.62 and Major depressive disorder, recurrent episode, severe, specified as with psychotic behavior 296.34 [facility], [place] [id number] [place] [address] [id number]- 6368 Mar, Magnesium deficiency 275.2 ; Hypokalemia 276.8 ; Nausea & vomiting 787.01 and Diabetes mellitus type 2, uncontrolled 250.02 [facility], [place] [id number] [place] [address] 59705- 8475 Feb, [facility], [place] [id number] [place] [address] 34355- 9733 Feb, Bipolar I disorder, most recent episode (or current) mixed, moderate 296.62 [facility], [place] [id number] [place] [address] 55254- 7311 Feb, Nausea and vomiting 787.01 ; Left elbow pain 719.42 ; Anuria 788.5 and Diabetes 250.00 [facility], [place] [id number] [place] [address] 28964- 3208 Feb, [facility], [place] [id number] [place] [address] 53638- 1556 Feb, Hypopotassemia 276.8 and Hypokalemia 276.8 [facility], [place] [id number] [place] [address] 17199- 0737 Feb, Hypopotassemia 276.8 and Hypokalemia 276.8 [facility], [place] [id number] [place] [address] 92453- 5812 Feb, Seborrheic keratoses 702.19 [facility], [place] [id number] [place] [address] 56445- 6609 Feb, Hypopotassemia 276.8 and Low magnesium levels 275.2 [facility], [place] [id number] [place] [address] 51220- 9400 January, [facility], [place] [id number] [place] [address] 42096- 9076 January, [facility], [place] [id number] [place] [address] 42752- 5434 January, [facility], [place] [id number] [place] [address] 33000- 2339 January, Scalp lesion 709.9 [facility], [place] [id number] [address]- 8639 January, [facility], [place] [id number] [address]- 1157 Dec, Tear of medial cartilage or meniscus of knee, current 836.0 and 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 [facility] [id number] [address]- 8258 Dec, [facility], [place] [id number] [address]- 9735 Dec, [facility], [place] [id number] [address]- 9703 Dec, Squamous cell carcinoma, 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 [facility], [place] [id number] [address]- 1097 Dec, [facility], [place] [id number] [address]- 2339 Dec, [facility], [place] [id number] [address]- 1968 Nov, [facility], [place] [id number] [address]- 7780 Nov, [facility], [place] [id number] [address]- 3805 Nov, [facility], [place] [id number] [address]- 1229 Nov, [facility], [place] [id number] 6207 Nov, [facility], [place] [id number] 7573 Nov, [facility], [place] [id number] [address]- 6817 Nov, [facility], [place] [id number] [place] [address]- 7685 Nov, 2014 [facility] [place] [facility] [address] [id number] [place] [address]- 5693 Nov, [facility] [place] [facility] [address] [id number] [place] [address]- 7385 Nov, 2014 [facility] [place] [facility] [address] [id number] [place] [address]- 1474 Nov, 2014 [facility] [place] [facility] [address] [id number] [place] [address]- 9915 Nov, [facility] [place] [facility] [address] [id number] [place] [address]- 9797 Oct, 2014 [facility] [place] [facility] [address] [facility] [id number] [place] [address]- 6246 Oct, 2014 [facility] [place] [facility] [address] [facility] [id number] [place] [address]- 3307 Oct, 2014 [facility] [place] [facility] [address] [id number] [place] [address]- 7099 Oct, 2014 [facility] [place] [facility] [address] [facility] [id number] [place] [address]- 3448 Oct, 2014 [facility] [place] [facility] [address] [facility] [id number] [place] [address]- 7310 Oct, 2014 [facility] [place] [facility] [address] [facility] [id number] [address]- 3250 Oct, 2014 [facility] [place] [facility] [address] [facility] [id number] [place] [address]- 3573 Oct, 2014 [facility] [place] [facility] [address] [id number] [place] [address]- 8377 Oct, 2014 [facility] [place] [facility] [address] [facility] [id number] [place] [address]- 4383 Sep, [facility] [place] [facility] [address] [facility] [id number] [place] [address]- 0339 Sep, [facility] [place] [facility] [address] [id number] [place] [address]- 4865 Sep, [facility] [place] [facility] [address] [id number] [place] [address]- 3466 Sep, [facility] [place] [facility] [address] [id number] [place] [address]- 0978 Sep, [facility] [place] [facility] [address] [id number] [place] [address]- 1025 Sep, [facility] [place] [facility] [address] [id number] [place] [address]- 6505 Sep, [facility] [place] [facility] [address] [id number] [place] [address]- 1345 Sep, [facility] [place] [facility] [address] [id number] [place] [address]- 0826 Sep, [facility] [place] [facility] [address] [id number] [place] [address]- 4922 Sep, [facility] [place] [facility] [address] [id number] [place] [address]- 9248 Sep, [facility] [place] [facility] [address] [id number] [place] [address]- 8074 Sep, [facility] [place] [facility] [address] [id number] [address]- 3679 Sep, [facility] [place] [facility] [address] [id number] [address]- 4742 Sep, [facility] [place] [facility] [address] [id number] [place] [address]- 4842 Sep, [facility] [place] [facility] [address] [id number] [place] [address]- 0699 Sep, [facility] [place] [facility] [address] [id number] [place] [address]- 0828 Aug, [facility] [place] [facility] [address] [id number] [place] [address]- 2836 Aug, [facility] [address] [id number] [place] [address]- 3837 Aug, [facility] [address] [id number] [place] [address]- 9326 Aug, [facility] [address] [id number] [place] [address]- 4413 Aug, [facility] [address] [id number] [place] [address]- 1184 Aug, [facility] [address] [id number] [place] [address]- 9429 Aug, [facility] [address] [id number] [place] [address]- 3709 Aug, [facility] [address] [id number] [place] [address]- 6688 Aug, [facility] [address] [id number] [place] [address]- 8551 Aug, [facility] [address] [id number] [place] [address]- 4762 Aug, [facility] [address] [place] [id number] Aug, [facility] [address] [id number] [place] [address]- 9558 Aug, [facility] [address] [id number] [place] [address]- 0094 Aug, [facility] [address] [id number] [place] [address]- 1176 Aug, [facility] [address] [id number] [place] [address]- 0107 Aug, [facility] [address] [id number] [place] [address]- 0674 Aug, [facility] [place] [facility] [address] [id number] [place] [address]- 2019 Aug, [facility] [place] [facility] [address] [id number] [place] [address]- 5216 Aug, [facility] [place] [facility] [address] [id number] [place] [address]- 4653 Aug, [facility] [place] [facility] [address] [id number] [place] [address]- 2411 Aug, [facility] [place] [facility] [address] [id number] [place] [address]- 0258 Aug, [facility] [place] [facility] [address] [id number] [place] [address]- 4573 Aug, [facility] [place] [facility] [address] [id number] [place] 4173 Aug, [facility] [place] [facility] [address] [id number] [place] [address]- 9857 Aug, [facility] [place] [facility] [address] [id number] [place] [address]- 3904 Aug, [facility] [place] [facility] [address] [id number] [place] [address]- 8587 Aug, [facility] [place] [facility] [address] [id number] [place] [address]- 2861 Aug, [facility] [place] [facility] [address] [id number] [place] [address]- 2822 Aug, [facility] [place] [facility] [address] [id number] [place] [address]- 7808 Aug, [facility] [place] [facility] [address] [id number] [place] [address]- 2539 Jul, [facility] [place] [facility] [address] [id number] [place] [address]- 0242 Jul, [facility] [place] [facility] [address] [id number] [place] [address]- 0180 Jul, [facility] [place] [facility] [address] [id number] [place] [address]- 6958 Jul, [facility] [place] [facility] [address] [id number] [place] [address]- 4737 Jul, [facility] [place] [facility] [address] [id number] [place] [address]- 6167 Jul, [facility] [place] [facility] [address] [id number] [place] [address]- 7448 Jul, [facility] [place] [facility] [address] [id number] [place] [address]- 4376 Jul, [facility] [place] [facility] [address] [id number] [place] [address]- 7313 Jul, [facility] [place] [facility] [address] [id number] [place] [address]- 2661 Jul, [facility] [place] [facility] [address] [id number] [address]- 7734 Jun, [facility] [place] [facility] [address] [id number] [place] [address]- 5863 Jun, [facility] [place] [facility] [address] [id number] [address]- 8148 Jun, [facility] [place] [facility] [address] [id number] [place] [address]- 2369 Jun, [facility] [place] [facility] [address] [id number] [place] [address]- 8408 Jun, [facility] [place] [facility] [address] [id number] [place] [address]- 6702 Jun, [facility] [place] [facility] [address] [id number] [address]- 4350 Jun, [facility] [place] [facility] [address] [id number] [address]- 9454 Jun, [facility] [place] [facility] [address] [id number] [place] [address]- 7544 Jun, [facility] [place] [facility] [address] [id number] [place] [address]- 0404 Jun, [facility] [place] [facility] [address] [id number] [place] [address] 2546 29 May, 2013 [facility] [place] [facility] [address] [id number] [place] [address] 2547 29 May, 2013 [facility] [place] [facility] [address] [id number] [place] [address] 2544 26 May, 2013 [facility] [place] [facility] [address] [id number] [place] [address]- 0091 26 May, 2013 [facility] [place] [facility] [address] [id number] [place] [address] 17 May, 2013 [facility] [place] [facility] [address] [id number] [place] [address] 17 May, 2013 [facility] [place] [facility] [address] [id number] [place] [address]48 15 May, 2013 [facility] [place] [facility] [address] [id number] [place] [address] 2549 15 May, 2013 [facility] [place] [facility] [address] [id number] [place] [address] 2547 15 May, 2013 [facility] [place] [facility] [address] [id number] [place] [address] 2546 15 May, 2013 [facility] [place] [facility] [address] [id number] [place] [address]- 254 10 May, 2013 [facility] [place] [facility] [address] [id number] [place] [address] 2546 10 May, 2013 [facility] [place] [facility] [address] [id number] [place] [address]- [address]40 09 May, 2013 [facility] [place] [facility] [address] [id number] [place] [address] 2768 May, [facility] [place] [facility] [address] [id number] [place] [address] May, [facility] [place] [facility] [address] [id number] [place] [address]- [address] May, [facility] [place] [facility] [address] [id number] [place] [address] Apr, [facility] [place] [facility] [address] [id number] [place] [address]- [address] Apr, [facility] [place] [facility] [address] [id number] [place] [address]- [address]284 Apr, [facility] [place] [facility] [address] [id number] [place] [address]- 1515 Apr, [facility] [place] [facility] [address] [id number] [place] [address]- [address] Apr, [facility] [place] [facility] [address] [id number] [place] [address]- [address]13 Apr, [facility] [place] [facility] [address] [id number] [place] [address]- 0193 Apr, [facility] [place] [facility] [address] [id number] [place] [address]- 8535 Apr, [facility] [place] [facility] [address] [id number] [place] [address]- 4866 Apr, [facility] [place] [facility] [address] [id number] [place] [address]- 4679 Apr, [facility] [place] [facility] [address] [id number] [place] [address]- 0790 Apr, [facility] [place] [facility] [address] [id number] [place] [address]- [address]65 Apr, [facility] [place] [facility] [address] [id number] [place] [address]- [address] Apr, [facility] [place] [facility] [address] [id number] [place] [address]- 9533 Apr, [facility] [place] [facility] [address] [id number] [place] [address]- [address]88 Apr, [facility] [place] [facility] [address] [id number] [place] [address]- [address] Mar, [facility] [place] [facility] [address] [id number] [place] [address] Mar, [facility] [place] [facility] [address] [id number] [place] [address]- 1763 Mar, [facility] [place] [facility] [address] [id number] [place] [address]- [address] Mar, [facility] [place] [facility] [address] [id number] [place] [address]- [address]7 Mar, [facility] [place] [facility] [address] [id number] [place] [address]- 3128 Mar, [facility] [place] [facility] [address] [id number] [place] [address]- 4786 Mar, [facility] [place] [facility] [address] [id number] [place] [address]- 9466 Mar, [facility] [place] [facility] [address] [id number] [place] [address]- 49[address] Mar, [facility] [place] [facility] [address] [id number] [place] [address]- 1144 Mar, [facility] [place] [facility] [address] [id number] [place] [address]- 1025 Mar, [facility] [place] [facility] [address] [id number] [place] [address]- 4399 Mar, [facility] [place] [facility] [address] [id number] [place] [address]- 2570 Mar, [facility] [place] [facility] [address] [id number] [place] [address]- 6985 Mar, [facility] [place] [facility] [address] [id number] [place] [address]- [address] Mar, [facility] [place] [facility] [address] [id number] [place] [address]- 7713 Mar, [facility] [place] [facility] [address] [id number] [place] [address]- [address] Mar, [facility] [place] [facility] [address] [id number] [place] [address]- [address]444 Mar, [facility] [place] [facility] [address] [id number] [place] [address]- [address]677 Feb, [facility] [place] [facility] [address] [id number] [place] [address]- [address]13 Feb, [facility] [place] [facility] [address] [id number] [place] [address]- [address]446 Feb, [facility] [place] [facility] [address] [id number] [place] [address]- 4821 Feb, [facility] [place] [facility] [address] [id number] [place] [address]- 2442 Feb, [facility] [place] [facility] [address] [id number] [place] [address]- 7628 Feb, [facility] [place] [facility] [address] [id number] [place] [address]- 7584 Feb, [facility] [place] [facility] [address] [id number] [place] [address]- [address]391 Feb, [facility] [place] [facility] [address] [id number] [place] [address]- 0784 Feb, [facility] [place] [facility] [address] [id number] [place] [address]- 4568 Feb, [facility] [place] [facility] [address] [id number] [place] [address]- 9021 Feb, [facility] [place] [facility] [address] [id number] [place] [address]- 6771 Feb, [facility] [place] [facility] [address] [id number] [place] [address]- [address]604 Feb, [facility] [place] [facility] [address] [id number] [place] [address]- 0753 Feb, [facility] [place] [facility] [address] [id number] [place] [address]- [address] January, [facility] [place] [facility] [address] [id number] [place] [address] January, [facility] [place] [facility] [address] [id number] [place] [address] January, [facility] [place] [facility] [address] [id number] [place] [address] 8985 January, [facility] [place] [facility] [address] [id number] [place] [address] 9383 January, [facility] [place] [facility] [address] [id number] [place] [address] 3061 January, [facility] [place] [facility] [address] [id number] [place] [address]- 0730 January, [facility] [place] [facility] [address] [id number] [place] [address] 7129 January, [facility] [place] [facility] [address] [id number] [place] [address] 3645 January, [facility] [place] [facility] [address] [id number] [place] [address] 2160 January, [facility] [place] [facility] [address] [id number] [place] [address] 6259 January, [facility] [place] [facility] [address] [id number] [place] [address]- 5487 January, [facility] [place] [facility] [address] [id number] [place] [address] 1164 January, [facility] [place] [facility] [address] [id number] [place] [address] 4195 January, [facility] [place] [facility] [address] [id number] [place] [address]- 6572 Dec, [facility] [place] [facility] [address] [id number] [place] [address]- 2396 Dec, [facility] [place] [facility] [address] [id number] [place] [address]- 9466 Dec, [facility] [place] [facility] [address] [id number] [place] [address]- 1204 Dec, [facility] [place] [facility] [address] [id number] [place] [address]- 9943 Dec, [facility] [place] [facility] [address] [id number] [place] [address]- 9531 Dec, [facility] [place] [facility] [address] [id number] [place] [address]- 5707 Dec, [facility] [place] [facility] [address] [id number] [place] [address]- 1044 Dec, [facility] [place] [facility] [address] [id number] [place] [address]- 2091 Dec, [facility] [place] [facility] [address] [id number] [place] [address]- 3537 Dec, [facility] [place] [facility] [address] [id number] [place] [address]- 0674 Nov, [facility] [place] [facility] [address] [id number] [place] [address]- 8969 Nov, [facility] [place] [facility] [address] [id number] [place] [address]- 0289 Nov, [facility] [place] [facility] [address] [id number] [place] [address]- 7753 Nov, [facility] [place] [facility] [address] [id number] [place] [address]- 1021 Nov, [facility] [place] [facility] [address] [id number] [place] [address]- 4448 Nov, [facility] [place] [facility] [address] [id number] [place] [address]- 6668 Nov, [facility] [place] [facility] [address] [id number] [place] [address]- 2479 Nov, [facility] [place] [facility] [address] [id number] [place] [address]- 8997 Nov, [facility] [place] [facility] [address] [id number] [place] [address]- 8181 Nov, [facility] [place] [facility] [address] [id number] [place] [address]- 6360 Oct, [facility] [place] [facility] [address] [id number] [place] [address]- 7365 Oct, [facility] [place] [facility] [address] [id number] [place] [address]- 7385 Oct, [facility] [place] [facility] [address] [id number] [place] [address]- 3901 Oct, [facility] [place] [facility] [address] [id number] [place] [address]- 6013 Oct, [facility] [place] [facility] [address] [id number] [place] [address]- 7565 Oct, [facility] [place] [facility] [address] [id number] [place] [address]- 2902 Oct, [facility] [place] [facility] [address] [id number] [place] [address]- 9935 Oct, [facility] [place] [facility] [address] [id number] [place] [address]- 6485 Oct, [facility] [place] [facility] [address] [facility] [id number] [place] [address]- 8771 Oct, [facility] [place] [facility] [address] [id number] [place] [address]- 8218 04 Oct, 2013 [facility] [address] [id number] [place] [address]- 0455 Oct, [facility] [place] [facility] [address] [id number] [place] [address]- 3346 Oct, [facility] [address] [id number] [place] [address]- 7116 Oct, [facility] [place] [facility] [address] [id number] [place] [address]- 8113 Sep, [facility] [address] [id number] [place] [address]- 3606 Sep, [facility] [address] [id number] [place] [address]- 8140 Sep, [facility] [address] [id number] [place] [address]- 2994 Sep, [facility] [address] [id number] [place] [address]- 0877 Sep, [facility] [place] [facility] [address] [id number] [place] [address]- 1209 Sep, [facility] [address] [id number] [place] [address]- 1262 Sep, [facility] [place] [facility] [address] [id number] [place] [address]- 6329 Sep, [facility] [place] [facility] [address] [id number] [place] [address]- 3590 Sep, [facility] [place] [facility] [address] [id number] [place] [address]- 9184 Sep, [facility] [place] [facility] [address] [id number] [place] [address]- 7368 Aug, [facility] [place] [facility] [address] [id number] [place] [address]- 2992 Aug, [facility] [place] [facility] [address] [id number] [place] [address]- 6324 Jul, [facility] [place] [facility] [address] [id number] [place] [address]- 4778 Jul, [facility] [place] [facility] [address] [id number] [place] [address]- 7446 Jul, [facility] [place] [facility] [address] [id number] [place] [address]- 4681 Jul, [facility] [place] [facility] [address] [id number] [place] [address]- 6285 Jul, [facility] [place] [facility] [address] [id number] [place] [address]- 6251 Jul, [facility] [place] [facility] [address] [id number] [place] [address]- 5579 Jul, [facility] [place] [facility] [address] [id number] [place] [address]- 0588 Jul, [facility] [place] [facility] [address] [id number] [address]- 6506 Jul, [facility] [place] [facility] [address] [id number] [place] [address]- 4085 Jul, [facility] [place] [facility] [address] [id number] [place] [address]- 7092 Jul, [facility] [place] [facility] [address] [id number] [place] [address]- 3274 Jul, [facility] [place] [facility] [address] [id number] [place] [address]- 1444 Jul, [facility] [place] [facility] [address] [id number] [place] [address]- 1194 Jul, [facility] [place] [facility] [address] [id number] [address]- 4567 Jul, [facility] [place] [facility] [address] [id number] [place] [address]- 5827 Jul, 2012 [facility] [place] [facility] [address] [id number] [place] [address]- 1516 Jul, 2012 [facility] [place] [facility] [address] [id number] [address]- 3730 Jul, [facility] [place] [facility] [address] [facility] [id number] [place] [address]- 5197 Jul, [facility] [place] [facility] [address] [id number] [place] 1485 Jun, 2012 [facility] [place] [facility] [address] [id number] [place] [address]- 4552 Jun, 2012 [facility] [place] [facility] [address] [id number] [place] [address] Jun, 2012 [facility] [place] [facility] [address] [id number] [address]- 4728 Jun, 2012 [facility] [place] [facility] [address] [id number] [address]- 2305 Jun, [facility] [place] [facility] [address] [facility] [id number] [place] [address]- 9562 Jun, 2012 [facility] [place] [facility] [address] [facility] [id number] [place] [address]- 7530 Jun, [facility] [place] [facility] [address] [id number] [place] [address]- 2189 Jun, 2012 [facility] [place] [facility] [address] [id number] [place] [address]- 4712 Jun, [facility] [place] [facility] [address] [id number] [address]- 1736 Jun, [facility] [place] [facility] [address] [facility] [id number] [place] [address]- 8126 Jun, [facility] [place] [facility] [address] [facility] [id number] [address]- 0180 May, [facility] [place] [facility] [address] [id number] [place] [address]- 2731 25 May, 2012 [facility] [place] [facility] [address] [id number] [place] [address] 2546 19 May, 2012 [facility] [place] [facility] [address] [id number] [place] [address] 2546 17 May, 2012 [facility] [place] [facility] [address] [id number] [place] [address] 2546 11 May, 2012 [facility] [place] [facility] [address] [id number] [place] [address] 2545 10 May, 2012 [facility] [place] [facility] [address] [id number] [place] [address] 2546 09 May, 2012 [facility] [place] [facility] [address] [id number] [place] [address]- 9921 05 May, 2013 [facility] [place] [facility] [address] [id number] [place] [address]- 7713 Apr, [facility] [place] [facility] [address] [id number] [place] [address]- 7725 Apr, [facility] [place] [facility] [address] [id number] [place] [address]- 7542 Apr, [facility] [place] [facility] [address] [id number] [place] [address]- 0177 Apr, [facility] [place] [facility] [address] [id number] [place] [address]- 9174 Apr, [facility] [place] [facility] [address] [id number] [place] [address] 2543 Mar, [facility] [place] [facility] [address] [id number] [place] [address] 2540 Mar, [facility] [place] [facility] [address] [id number] [place] [address] 2545 Mar, [facility] [place] [facility] [address] [id number] [place] [address]- 7880 Mar, [facility] [address] [id number] [place] [address]- 0835 Mar, [facility] [place] [facility] [address] [id number] [place] [address]- 4731 Mar, [facility] [address] [id number] [place] [address]- 1167 Mar, [facility] [place] [facility] [address] [id number] [place] [address]- 9718 Mar, [facility] [address] [id number] [place] [address]- 1836 Feb, [facility] [address] [id number] [place] [address]- 3835 Feb, [facility] [address] [id number] [place] [address]- 9422 January, [facility] [place] [facility] [address] [id number] [place] [address]- 8096 January, [facility] [address] [id number] [place] [address]- 3926 Dec, [facility] [place] [facility] [address] [id number] [place] [address]- 0071 Dec, [facility] [place] [facility] [address] [id number] [address]- 8660 Nov, [facility] [place] [facility] [address] [id number] [address]- 5394 Nov, [facility] [place] [facility] [address] [id number] [place] [address]- 3048 Nov, [facility] [place] [facility] [address] [id number] [address]- 2107 Nov, [facility] [place] [facility] [address] [id number] [place] [address]- 2848 Oct, [facility] [place] [facility] [address] [id number] [place] [address]- 9316 26 Oct, 2012 [facility] [address] [id number] [place] [address] 2546 Oct, [facility] [place] [facility] [address] [id number] [place] [address] 2546 26 Oct, 2012 [facility] [place] [facility] [address] [id number] [place] [address] 2546 16 Oct, 2012 [facility] [place] [facility] [address] [id number] [place] [address] 2548 14 Oct, 2012 [facility] [place] [facility] [address] [id number] [place] [address] 2546 08 Oct, 2012 [facility] [place] [facility] [address] [id number] [place] [address]- 254 07 Oct, 2012 [facility] [place] [facility] [address] [id number] [place] [address]- 8561 03 Oct, 2012 [facility] [place] [facility] [address] [id number] [place] [address]- 5463 30 Sep, 2012 [facility] [place] [facility] [address] [facility] [id number] [place] [address]- 254 29 Sep, 2012 [facility] [place] [facility] [address] [id number] [place] [address] 2544 Sep, [facility] [place] [facility] [address] [id number] [place] [address] 2544 Sep, [facility] [place] [facility] [address] [id number] [place] [address] 2541 17 Sep, 2012 [facility] [place] [facility] [address] [id number] [place] [address] 2546 10 Sep, 2012 [facility] [place] [facility] [address] [id number] [place] [address] 2546 09 Sep, 2012 [facility] [place] [facility] [address] [id number] [place] [address]- 3309 Sep, [facility] [place] [facility] [address] [id number] [place] [address]- 4611 Aug, [facility] [place] [facility] [address] [id number] [place]36 Aug, [facility] [place] [facility] [address] [facility] [id number] [place] [address]- 1232 Aug, [facility] [place] [facility] [address] [id number] [place] [address]- 5659 Aug, [facility] [place] [facility] [address] [id number] [place] [address]- 4507 Aug, [facility] [place] [facility] [address] [id number] [place] [address]- 4082 Aug, [facility] [place] [facility] [address] [id number] [place] [address]- 5405 Aug, [facility] [place] [facility] [address] [id number] [place] [address]- 7710 Aug, [facility] [place] [facility] [address] [id number] [place] [address]- 5074 Jul, [facility] [place] [facility] [address] [id number] [place] [address]- 5483 Jul, [facility] [place] [facility] [address] [id number] [place] [address]- 1584 Jul, [facility] [place] [facility] [address] [id number] [place] [address]- 1395 Jul, [facility] [place] [facility] [address] [id number] [place] [address]- 5183 Jul, [facility] [place] [facility] [address] [id number] [address]- 9332 Jul, [facility] [place] [facility] [address] [facility] [id number] [place] [address]- 1819 Jun, [facility] [place] [facility] [address] [id number] [place] [address]- 5048 25 Jun, 2012 [facility] [place] [facility] [address] [id number] [place] [address]- 4014 Jun, [facility] [place] [facility] [address] [id number] [place] [address]- 4706 Jun, [facility] [place] [facility] [address] [id number] [place] [address]- 1990 Jun, [facility] [place] [facility] [address] [id number] [place] [address]- 4659 Jun, [facility] [place] [facility] [address] [id number] [place] [address]- 1267 Jun, [facility] [place] [facility] [address] [id number] [place] [address]- 8981 10 Jun, 2012 [facility] [place] [facility] [address] [id number] [place] [address]- 1876 10 Jun, 2012 [facility] [place] [facility] [address] [id number] [place] [address]- 5601 26 May, 2012 [facility] [place] [facility] [address] [id number] [place] [address]- 2955 24 May, 2012 [facility] [place] [facility] [address] [id number] [place] [address]- 0182 18 May, 2012 [facility] [place] [facility] [address] [id number] [place] [address] 2540 30 Apr, 2012 [facility] [place] [facility] [address] [id number] [place] [address]- 2540 29 Apr, 2012 [facility] [place] [facility] [address] [id number] [place] [address]- 4020 18 Apr, 2012 [facility] [place] [facility] [address] [id number] [place] [address]- 254 14 Apr, 2012 [facility] [place] [facility] [address] [id number] [place] [address]- 2864 Apr, [facility] [place] [facility] [address] [id number] [place] [address]- 3261 Apr, [facility] [place] [facility] [address] [id number] [place] [address]- 0729 Mar, [facility] [place] [facility] [address] [id number] [place] [address]- 7682 Mar, [facility] [place] [facility] [address] [id number] [place] [address]- 4313 Mar, [facility] [address] [id number] [place] [address]- 0129 Mar, [facility] [place] [facility] [address] [id number] [place] [address]- 3642 Feb, [facility] [address] [id number] [place] [address]- 4386 Feb, [facility] [address] [id number] [place] [address]- 4622 Feb, [facility] [place] [facility] [address] [id number] [place] [address]- 7936 Feb, [facility] [place] [facility] [address] [id number] [place] [address]- 5256 Feb, [facility] [place] [facility] [address] [id number] [place] [address]- 9123 January, [facility] [place] [facility] [address] [id number] [place] [address]- 0837 January, [facility] [place] [facility] [address] [id number] [place] [address]- 5108 January, [facility] [place] [facility] [address] [id number] [place] [address]- 3116 January, [facility] [place] [facility] [address] [id number] [place] [address]- 7717 January, [facility] [place] [facility] [address] [id number] [place] [address]- 6199 January, [facility] [address] [id number] [place] [address]- 1909 Dec, [facility] [place] [facility] [address] [id number] [place] [address]166 24 Dec, 2011 [facility] [place] [facility] [address] [id number] [place] [address]- 0122 Dec, [facility] [place] [facility] [address] [id number] [place] [address]- 0122 Dec, [facility] [place] [facility] [address] [id number] [place] [address]- 9487 Dec, [facility] [place] [facility] [address] [id number] [place] [address]- 8402 27 Nov, 2011 [facility] [place] [facility] [address] [id number] [place] [address] 14 Nov, 2011 [facility] [place] [facility] [address] [id number] [place] [address] Nov, [facility] [place] [facility] [address] [id number] [place] [address] 07 Nov, 2011 [facility] [place] [facility] [address] [facility] [id number] [place] [address] 29 Oct, 2011 [facility] [place] [facility] [address] [id number] [place] [address] Oct, [facility] [place] [facility] [address] [id number] [place] [address] 24 Oct, 2011 [facility] [place] [facility] [address] [id number] [place] [address] 13 Oct, 2011 [facility] [place] [facility] [address] [id number] [place] [address] 08 Oct, 2011 [facility] [place] [facility] [address] [facility] [id number] [place] [address] Sep, [facility] [place] [facility] [address] [id number] [place] [address] Sep, [facility] [place] [facility] [address] [id number] [place] [address] Sep, [facility] [place] [facility] [address] [id number] [place] [address] Sep, [facility] [place] [facility] [address] [id number] [place] [address] Sep, [facility] [place] [facility] [address] [id number] [place] [address] 407[address] Sep, [facility] [place] [facility] [address] [id number] [place] [address] Aug, [facility] [place] [facility] [address] [id number] [place] [address]647 Aug, [facility] [place] [facility] [address] [id number] [place] [address]60 Aug, [facility] [place] [facility] [address] [id number] [place] [address] Jul, [facility] [place] [facility] [address] [id number] [place] [address] Jul, [facility] [place] [facility] [address] [id number] [place] [address]- [address] Jul, [facility] [place] [facility] [address] [id number] [place] [address] Jul, [facility] [place] [facility] [address] [id number] [place] [address] Jun, [facility] [place] [facility] [address] [id number] [place] [address]- 49[address] Jun, [facility] [facility] [address] [id number] [place] [address] Jun, [facility] [place] [facility] [address] [id number] [place] [address]- [address]241 10 Jun, 2011 [facility] [place] [facility] [address] [id number] [place] [address]- [address]170 10 Jun, 2011 [facility] [place] [facility] [address] [id number] [place] [address]- [address]46 10 Jun, 2011 [facility] [place] [facility] [address] [id number] [place] [address]846 11 Mar, 2011 [facility] [address] [id number] [place] [address] 8732 18 Dec, 2010 [facility] [address] [id number] [place] [address]- 6399 11 Dec, 2010 [facility] [address] [id number] [place] [address]- 1650 18 Nov, 2010 [facility] [address] [id number] [place] [address]- 2078 16 Nov, 2010 [facility] [place] [address] [id number] [place] [address]- 1869 10 Sep, 2010 [facility] [place] [facility] [address] [id number] [place] [address]- 3846 31 Aug, 2010 [facility] [place] [facility] [address] [id number] [place] [address]- 6993 29 Aug, 2010 [facility] [place] [facility] [address] [id number] [place] [address]- 4579 29 Aug, 2010 [facility] [place] [address] [id number] [place] [address] 254 29 Aug, 2010 [facility] [facility] [address] [id number] [place] [address] 2546 27 Aug, 2010 [facility] [address] [id number] [place] [address]- 1189 14 Aug, 2010 [facility] [address] [id number] [place] [address] 2544 08 Aug, 2010 [facility] [address] [id number] [place] [address]- 0277 08 Aug, 2010 [facility] [address] [id number] [place] [address]006 Aug, [facility] [address] [id number] [place] [address] 2546 Aug, [facility] [address] [id number] [place] [address]- 62[address] Aug, [facility] [address] [id number] [place] [address] 2546 Aug, [facility] [address] [id number] [place] [address] Jul, [facility] [address] [id number] [place] [address]- 9949 Jul, [facility] [address] [facility] [id number] [place] [address]- [address] Jul, [facility] [address] [id number] [place] [address]- 6029 Jul, [facility] [address] [facility] [id number] [place] [address]- [address] Jul, [facility] [address] [facility] [id number] [place] [address]- [address]656 Jul, [facility] [address] [id number] [place] [address] 2540 24 Jun, 2010 [facility] [address] [id number] [address] Jun, [facility] [address] [id number] [place] [address] 4358 Jun, [facility] [address] [facility] [id number] [place] [address]- 2546 Jun, [facility] [address] [id number] [place] [address] 16 Apr, 2010 [facility] [address] [id number] [place] [address]- 4501 20 Mar, 2010 [facility] [address] [id number] [place] [address]- 1186 17 Feb, 2010 [facility] [address] [id number] [place] [address]- [address]242 January, [facility] [address] [id number] [place] [address]- 2643 15 Dec, 2009 [facility] [address] [id number] [place] [address]- 7067 Nov, [facility] [address] [id number] [place] [address]- 4689 Aug, [facility] [address] [id number] [place] [address]- [address]644 Aug, [facility] [address] [id number] [address]- [address]471 Aug, [facility] [address] [id number] [place] [address]- 7017 Jul, [facility] [address] [facility] [id number] [place] [address]- [address] Jul, [facility] [address] [facility] [id number] [place] [address]- 95[address] Jul, [facility] [address] [id number] [place] [address]- 8640 30 Jun, 2009 [facility] [address] [id number] [place] [address]- 9020 29 Jun, 2009 [facility] [address] [id number] [place] [address]- [address]377 Jun, [facility] [address] [id number] [address] Jun, [facility] [address] [id number] [address] Jun, [facility], [place] [address] [facility] [id number] [address] Jun, [facility], [place] [address] [id number] [address] Apr, [facility], [place] [address] [facility] [id number] [address] Apr, [facility], [place] [address] [id number] [address] Feb, [facility], [place] [address] [facility] [id number] [place] [address] January, [facility] [place] [address] [id number] [address] Dec, IMMUNIZATIONS No Known Immunizations SOCIAL HISTORY Never Assessed REASON FOR VISIT BH f/u, Depression. PLAN OF CARE Activity Details Follow Up Next available Reason:depression VITAL SIGNS MEDICATIONS Unknown Medications RESULTS No Results PROCEDURES Procedure Date Ordered Result Body Site [facility] VISIT MENTAL HEALTH ESTAB PT December 04, 2017 Psychotherapy, patient &/family, 45 minutes, established patient December 04, 2017 INSTRUCTIONS MEDICATIONS ADMINISTERED No Known Medications MEDICAL (GENERAL) HISTORY Type Description Date Medical History type II diabetes Medical History coronary artery disease stress test 01/5015 Medical History chronic obstructive pulmonary disease (COPD) Medical History gastroesophageal reflux disease (GERD) Medical History acute renal failure Medical History erectile dysfunction Medical History hyperlipidemia Medical History obesity Medical History skin cancer-basal cell R latter-day (removed) Medical History Arthritis Medical History degenerative [...] History resection of skin cancer from Right latter-day Surgical History Biopsy of Lung Bilateral/Left lung lymph node 09/2016 Surgical History Bone Marrow Biopsy Surgical History port in the right chest wall 12/2016 Hospitalization History [facility] low potassium, low magnesium, chest painina 01/2015 Hospitalization History inability to urinate 09/16/15 Hospitalization History [facility] Hospitalization History hyperkalemia 10/2017 Hospitalization History fluid in lung
--- OUTSIDE RECORDS SUMMARY | 2018-08-08 14:32 | XMS REPORT ---
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 Name Role Phone NOEMI WASHBURN Unavailable PROBLEMS Type Condition ICD9-CM Code YCE53-LI Code Onset Dates Condition Status SNOMED Code Problem Chronic lymphocytic leukemia C91.10 Active 59231314 Problem Insomnia, unspecified type G47.00 Active 619575821 Problem Lymphocytosis D72.820 Active 52888933 Problem Anxiety F41.9 Active 19164662 Problem Eye exam abnormal R93.8 Active 840332250 Problem Morbid obesity E66.01 Active 442802134 Problem Diabetic polyneuropathy associated with type 2 diabetes mellitus E11.42 Active 39165538 Problem Essential hypertension I10 Active 39063106 Problem Falling R29.6 Active 466472915 Problem 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 Active 315620796 Problem Cough R05 Active 85971930 Problem Dysuria R30.0 Active 76695197 Problem Eustachian tube dysfunction, unspecified laterality H69.80 Active 08363809 Problem Bilateral primary osteoarthritis of knee M17.0 Active 804329042 Problem Polyneuropathy associated with underlying disease G63 Active 985532610 Problem Anemia of chronic illness D63.8 Active 700546479 Problem Retinal edema H35.81 Active 6865099 Problem DM neuro manif type II E11.49 Active 10545025 Problem Diabetes E11.9 Active 09947117 Problem Hypokalemia E87.6 Active 74819806 Problem Benign prostatic hyperplasia with lower urinary tract symptoms, unspecified morphology N40.1 Active 795109920 Problem Reactive airway disease J45.909 Active 229140447571 Problem Bipolar I disorder, most recent episode (or current) mixed, moderate F31.62 Active 97078062 Problem Chronic pain G89.29 Active 41710804 Problem Leukocytosis D72.829 Active 261475082 ALLERGIES No Information ENCOUNTERS Encounter Location Date Diagnosis [facility] [address], [place] [address] Apr, [facility] [address] [address] Apr, [facility] [address], [place] [address] 47[address] Mar, [facility] [address], [place] [address] 2[address] Mar, [facility] [address], [place] [address] 74[address] Mar, [facility] [address] [place] [address] 12056- 0457 Mar, Chronic pain G89.29 [facility] [address], [place] [address] 7[address] Mar, Bipolar I disorder, most recent episode (or current) mixed, moderate F31.62 [facility] [address], [place] [address] Feb, Bipolar I disorder, most recent episode (or current) mixed, moderate F31.62 [facility] [address] [address] 9687 Feb, Chronic pain G89.29 [facility] [address], [place] [address] Feb, Decubitus ulcer of right foot, stage 3 L89.893 and BMI 50.0- 59.9, adult Z68.43 [facility] [address], [place] [address] Feb, Bipolar I disorder, most recent episode (or current) mixed, moderate F31.62 [facility] [address], [place] [address] 2546 Feb, [facility] [address], [place] [address] January, [facility] [id number] [place] [address] 56514- 6374 January, Chronic pain G89.29 [facility] [id number] [place] [address] 64918- 7196 January, Bipolar I disorder, most recent episode (or current) mixed, moderate F31.62 [facility] [id number] [place] [address] 29740- 9603 January, Bipolar I disorder, most recent episode (or current) mixed, moderate F31.62 [facility] [id number] [place] [address] 27715- 1015 Dec, Bipolar I disorder, most recent episode (or current) mixed, moderate F31.62 and BMI 50.0-59.9, adult Z68.43 [facility] [id number] [place] [address] 63742- 1151 Dec, Bipolar I disorder, most recent episode (or current) mixed, moderate F31.62 [facility] [id number] [place] [address] 54210- 2525 Dec, Chronic pain G89.29 [facility] [id number] [place] [address] 25218- 0156 Dec, DM neuro manif type II E11.49 ; Right flank pain R10.9 ; 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 ; Encounter for medication monitoring Z51.81 and BMI 50.0-59.9, adult Z68.43 [facility] [address] [place] [address] 05473- 8273 Dec, Bipolar I disorder, most recent episode (or current) mixed, moderate F31.62 [facility] [id number] [place] [address] 27859- 1583 Nov, Bipolar I disorder, most recent episode (or current) mixed, moderate F31.62 [facility] [id number] [place] [address] 45828- 9994 Nov, Chronic pain G89.29 [facility] [id number] [place] [address] 985049- 3251 Nov, Bipolar I disorder, most recent episode (or current) mixed, moderate F31.62 [facility] [id number] [place] [address] 55139- 5224 Nov, Hypokalemia E87.6 [facility] [address] 32[address]- 2529 Nov, Bipolar I disorder, most recent episode (or current) mixed, moderate F31.62 [facility] [id number] [place] [address] 96614- 6378 Oct, Chronic pain G89.29 [facility] [id number] [place] [address] 14479- 5345 Oct, BMI 50.0-59.9, adult Z68.43 and Bipolar I disorder, most recent episode (or current) mixed, moderate F31.62 [facility] [facility] [id number] [place] [address] 00970- 8208 Oct, Bipolar I disorder, most recent episode (or current) mixed, moderate F31.62 [place] [facility] [id number] [place] [address] 57215- 1415 Oct, [facility] [id number] [place] [address] 03070- 0419 Oct, Hypokalemia E87.6 [facility] [id number] [place] [address] 87127- 7361 Oct, DM neuro manif type II E11.49 [facility] [id number] [place] [address] 29563- 9131 Oct, Bipolar I disorder, most recent episode (or current) mixed, moderate F31.62 [facility] [id number] [place] [address] 93829- 6832 20 Oct, 2017 Bipolar I disorder, most recent episode (or current) mixed, moderate F31.62 [facility] [address] 33771- 1132 14 Oct, 2017 Hyperkalemia E87.5 ; Falling R29.6 ; BMI 50.0-59.9, adult Z68.43 and Acute left ankle pain M25.572 [facility] [address] [address]19- 4046 08 Oct, 2017 DM neuro manif type II E11.[address] [address]- 7906 Oct, [facility] [address] 73144- 8866 Sep, Chronic pain G89.29 [facility] [address] 45105- 6936 Sep, [facility] [address] 11588- 1550 Sep, Bilateral primary osteoarthritis of knee M17.[address] 65654- 6742 Sep, Generalized edema R60.1 [facility] [address] 43104- 4181 16 Sep, 2017 Bipolar I disorder, most recent episode (or current) mixed, moderate F31.62 [facility] [address] 40472- 3420 15 Sep, 2017 Hypoxia R09.02 ; Other hypervolemia E87.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 ; Anemia of chronic illness D63.8 and BMI 50.0- 59.9, adult Z68.43 [facility] [address] [place] [address]- 8650 Sep, [facility] [id number] [place] [address] 03579- 1942 Sep, Bipolar I disorder, most recent episode (or current) mixed, moderate F31.62 [facility] [id number] [place] [address] 71193- 1081 Aug, Chronic pain G89.29 [facility] [id number] [place] [address] 079846- 3701 Aug, Generalized edema R60.1 [facility] [id number] [place] [address] 245494- 9796 Aug, [facility] [id number] [place] [address] 76165- 0958 Aug, [facility] [id number] [place] [address] 06209- 9378 14 Aug, 2017 Bipolar I disorder, most recent episode (or current) mixed, moderate F31.62 [facility] [id number] [place] [address] 07715- 6325 Aug, Bipolar I disorder, most recent episode (or current) mixed, moderate F31.62 [facility] [id number] [place] [address] 43148- 6476 04 Aug, 2017 Chronic pain G89.29 [facility] [id number] [place] [address] 16564- 5713 Jul, Bipolar I disorder, most recent episode (or current) mixed, moderate F31.62 [facility] [id number] [place] [address] 23038- 9910 Jul, Bipolar I disorder, most recent episode (or current) mixed, moderate F31.62 and BMI 60.0-69.9, adult Z68.44 [facility] [id number] [place] [address] 37194- 3598 16 Jul, 2017 Bipolar I disorder, most recent episode (or current) mixed, moderate F31.62 [facility] [address], [place] [address]- 9021 Jul, Chronic pain G89.29 [facility] [id number] [place] [address] 491527- 5647 Jul, Bipolar I disorder, most recent episode (or current) mixed, moderate F31.62 [facility] [id number] [place] [address] 40782- 5120 Jun, Polyneuropathy associated with underlying disease G63 and Diabetes E11.9 [facility] [id number] [place] [address] 843143- 7800 Jun, Bipolar I disorder, most recent episode (or current) mixed, moderate F31.62 [facility] [id number] [place] [address] 69981- 2588 Jun, Chronic pain G89.29 [facility] [id number] [place] [address] 20619- 8561 27 May, 2017 Bipolar I disorder, most recent episode (or current) mixed, moderate F31.62 [facility] [id number] [place] [address] 20580- 1216 May, Bipolar I disorder, most recent episode (or current) mixed, moderate F31.62 [facility] [id number] [place] [address] 42246- 4627 20 May, 2017 Diabetic polyneuropathy associated with type 2 diabetes mellitus E11.42 [facility] [id number] [place] [address] 37814- 3505 18 May, 2017 Bipolar I disorder, most recent episode (or current) mixed, moderate F31.62 [facility] [id number] [place] [address] 00916- 4410 13 May, 2017 Bipolar I disorder, most recent episode (or current) mixed, moderate F31.62 [facility] [id number] [place] [address] 29612- 6242 May, Chronic pain G89.29 [facility] [id number] [place] [address] 68901- 5048 Apr, Bipolar I disorder, most recent episode (or current) mixed, moderate F31.62 [facility] [id number] [place] [address] 14717- 2391 Apr, [facility] [id number] [place] [address] 31977- 0303 Apr, Chronic pain G89.29 and DM neuro manif type II E11.49 [facility] [id number] [place] [address] 837260- 7337 Apr, [facility] [id number] [place] [address] 57353- 1752 Apr, Bipolar I disorder, most recent episode (or current) mixed, moderate F31.62 [facility] [id number] [place] [address] 22130- 7473 Apr, Chronic pain G89.29 [facility] [id number] [place] [address] 40095- 2479 Apr, Iliotibial band syndrome, left M76.32 [facility] [address] [place] [address] 78473- 8814 Apr, Bipolar I disorder, most recent episode (or current) mixed, moderate F31.62 [facility] [id number] [place] [address] 47597- 8989 Mar, Bipolar I disorder, most recent episode (or current) mixed, moderate F31.62 [facility] [id number] [place] [address] 36316- 3340 Mar, Bipolar I disorder, most recent episode (or current) mixed, moderate F31.62 [facility] [address], [place] [address]- 6341 Mar, [facility] [id number] [address]- 2634 Mar, Bipolar I disorder, most recent episode (or current) mixed, moderate F31.62 [facility] [id number] [place] [address] 50364- 5566 Mar, Chronic pain G89.29 [facility] [address] [place] [address] 87055- 7899 Mar, Bipolar I disorder, most recent episode (or current) mixed, moderate F31.62 [facility] [id number] [place] [address] 44436- 4183 Mar, Bipolar I disorder, most recent episode (or current) mixed, moderate F31.62 [facility] [address] [place] [address] 13529- 9458 Mar, Acute pain of left knee M25.562 ; Left hip pain M25.552 ; Generalized edema R60.1 and Tongue swelling R22.0 [facility] [address] [place] [address] 11360- 2878 Mar, [facility] [id number] [place] [address] 98635- 6547 Feb, Chronic pain G89.29 [facility] [id number] [place] [address] 60718- 8976 Feb, Diabetes E11.9 [facility] [id number] [place] [address] 57588- 3333 January, Chronic pain G89.29 [facility] [address], [place] [address]- 7277 January, [facility] [id number] [place] [address] 83195- 9491 January, Bipolar I disorder, most recent episode (or current) mixed, moderate F31.62 [facility] [id number] [place] [address] 66921- 4188 Dec, Bipolar I disorder, most recent episode (or current) mixed, moderate F31.62 [facility] [id number] [place] [address] 12257- 0596 Dec, Chronic pain G89.29 [facility] [id number] [place] [address] 48242 2546 Dec, Bipolar I disorder, most recent episode (or current) mixed, moderate F31.62 [facility] [id number] [place] [address] 73757- 4566 Dec, Diabetes E11.9 ; Essential hypertension I10 ; Chronic pain G89.29 and Morbid obesity E66.01 [facility] [id number] [place] [address] 44618- 8646 Dec, [facility] [id number] [place] [address] 45316- 0286 Dec, Bipolar I disorder, most recent episode (or current) mixed, moderate F31.62 [facility] [address] [place] [address] 71317- 4647 Dec, Bipolar I disorder, most recent episode (or current) mixed, moderate F31.62 [facility] [address] [place] [address] 28108- 4163 Nov, Chronic pain G89.29 [facility] [address] [place] [address] 44518- 2146 Nov, Bipolar I disorder, most recent episode (or current) mixed, moderate F31.62 [facility] [address], [place] [address]- 0994 Nov, [facility] [id number] [place] [address] 04664- 0696 Nov, Bipolar I disorder, most recent episode (or current) mixed, moderate F31.62 [facility] [id number] [place] [address] 51953- 0213 Nov, Bipolar I disorder, most recent episode (or current) mixed, moderate F31.62 [facility] [address], [place] [address]- 2408 Nov, [facility] [id number] [place] [address] 49310- 2429 Nov, [facility] [address], [place] [address]- 7232 Nov, [facility] [id number] [place] [address] 03735- 0081 Oct, Chronic pain G89.29 [facility] [address] [id number] [place] [address] 67524- 7766 Oct, Bipolar I disorder, most recent episode (or current) mixed, moderate F31.62 [facility] [address], [place] [address]- 4313 Oct, [facility] [id number] [place] [address] 81819- 5577 Oct, Chronic pain G89.29 ; Diabetes E11.9 ; Anxiety F41.9 and 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 [facility] [address], [place] [address]- 0711 Oct, [facility] [address], [place] [address]- 8532 Oct, Diabetes E11.9 [facility] [address], [place] [address]- 5525 Oct, Bipolar I disorder, most recent episode (or current) mixed, moderate F31.62 [facility] [address], [place] [address]- 2692 Sep, Chronic pain G89.29 [facility] [address], [place] [address]- 4457 Sep, Chronic pain G89.29 [facility] [address], [place] [address]- 9886 Aug, Chronic pain G89.29 [facility] [id number] [place] [address] 84769- 1500 Jul, [facility] [id number] [place] [address] 47953- 8623 Jul, Diabetes E11.9 [facility] [id number] [place] [address] 57035- 1135 Jul, Chronic pain G89.29 [facility] [id number] [place] [address] 23838- 9047 Jul, Bipolar I disorder, most recent episode (or current) mixed, moderate F31.62 [facility] [id number] [place] [address] 86791- 6524 Jun, Bipolar I disorder, most recent episode (or current) mixed, moderate F31.62 [facility] [id number] [place] [address] 61410- 7560 Jun, [facility] [id number] [place] [address] 37632- 4818 Jun, Bipolar I disorder, most recent episode (or current) mixed, moderate F31.62 [facility] [id number] [place] [address] 14970- 9808 30 May, 2016 Insomnia, unspecified type G47.00 [facility] [id number] [place] [address] 00747- 1795 May, Bipolar I disorder, most recent episode (or current) mixed, moderate F31.62 [facility] [id number] [place] [address] 54005- 6872 14 May, 2016 [facility] [id number] [place] [address] 05340- 5019 08 May, 2016 Bipolar I disorder, most recent episode (or current) mixed, moderate F31.62 [facility] [address], [place] [address]- 6020 May, Diabetes E11.9 and Essential hypertension I10 [facility] [id number] [place] [address] 97174- 9845 Apr, Chronic pain G89.29 [facility] [id number] [place] [address] 10227- 1113 Apr, Bipolar I disorder, most recent episode (or current) mixed, moderate F31.62 [facility] [id number] [place] [address] 90686- 6205 Apr, [facility] [id number] [place] [address] 71876- 3048 Apr, [facility] [id number] [place] [address] 59797- 9474 Mar, Chronic pain G89.29 ; Headache, unspecified headache type R51 ; Neuropathy G62.9 ; Pain of right hip joint M25.551 and Essential hypertension I10 [facility] [id number] [place] [address] 95658- 7634 Mar, Chronic pain G89.29 [facility] [id number] [place] [address] 92707- 1294 Mar, Bipolar I disorder, most recent episode (or current) mixed, moderate F31.62 [facility] [id number] [place] [address] 25970- 9516 Feb, Bipolar I disorder, most recent episode (or current) mixed, moderate F31.62 and Insomnia, unspecified type G47.00 [facility] [id number] [place] [address] 75064- 1318 Feb, Chronic pain G89.29 [facility] [id number] [place] [address] 02113- 8017 Feb, Bipolar I disorder, most recent episode (or current) mixed, moderate F31.62 [facility] [address], [place] [address]- 3872 January, Bipolar I disorder, most recent episode (or current) mixed, moderate F31.62 [facility] [id number] [place] [address] 06554- 8073 January, Chronic pain G89.29 [facility] [id number] [place] [address] 96724- 1916 January, Chronic pain G89.29 and Essential hypertension I10 [facility] [id number] [place] [address] 36755- 5684 January, Bipolar I disorder, most recent episode (or current) mixed, moderate F31.62 [facility] [id number] [place] [address] 98481- 7611 Dec, [facility] [id number] [place] [address] 20782- 1729 Dec, [facility] [id number] [place] [address] 86104- 3994 Dec, [facility] [id number] [place] [address] 72281- 8117 Dec, [facility] [id number] [place] [address] 64730- 9602 Nov, Reactive airway disease J45.909 [facility] [id number] [place] [address] 09603- 5456 Nov, [facility] [id number] [place] [address] 22243 2543 Nov, [facility] [id number] [place] [address] 42511- 4968 Nov, [facility] [id number] [place] [address] 64083- 7540 Nov, [facility] [id number] [place] [id number]- [address] Nov, Onychomycosis B35.1 ; Hammertoe M20.40 ; [place] or callus L84 and DM neuro manif type II E11.49 [place] [address] [address] Nov, Chronic pain G89.29 ; Leukocytosis D72.829 and Diabetes E11.[address] [address] Nov, [place] [address] [address] Oct, Bronchitis J40 [address] [address] Oct, [place] [address] [address] Oct, [place] [address] [address] Oct, Mastoiditis, unspecified laterality H70.90 and Type 2 diabetes mellitus with complication E11.8 [place] [address] [address] Sep, [address] [address] Sep, Dysuria R30.0 ; Cough R05 ; Benign prostatic hyperplasia with lower urinary tract symptoms, unspecified morphology N40.1 ; Hypokalemia E87.6 and Eustachian tube dysfunction, unspecified laterality H69.80 [place] [id number] [place] [address] 67500- 7820 Sep, Moderate mixed bipolar I disorder F31.[address] [address]- 8807 Sep, Hypokalemia E87.[address] 35248- 3064 Sep, [facility] [address], [place] [address] 37[address] Sep, Upper respiratory tract infection, unspecified type J06.9 [facility] [address], [place] [address] 6883 Aug, [facility] [id number] [place] [address] 46596- 5242 Aug, Dysuria R30.0 [facility] [id number] [place] [address] 10805- 3305 Aug, [facility] [id number] [place] [address] 70104- 5433 Jul, [facility] [id number] [place] [address] 92213- 9053 Jul, [facility] [id number] [place] [address] 49323- 3957 Jul, [facility] [id number] [place] [address] 42784- 0894 Jul, [facility] [id number] [place] [address] 49335- 8709 Jun, [facility] [id number] [address]- 6531 Jun, [facility] [id number] [place] [address] 55776- 1874 Jun, [facility] [address], [place] [address]- 6021 29 May, 2015 [facility] [id number] [place] [address] 23236- 5833 25 May, 2015 Bipolar I disorder, most recent episode (or current) mixed, moderate 296.62 [facility] [address], [place] [address]- 7211 16 May, 2015 [facility] [id number] [place] [address] 80105- 3850 May, Bipolar I disorder, most recent episode (or current) mixed, moderate 296.62 and Major depressive disorder, recurrent episode, severe, specified as with psychotic behavior 296.34 [facility] [id number] [place] [address] 02784- 9930 May, Bipolar I disorder, most recent episode (or current) mixed, moderate 296.62 [facility] [id number] [place] [address] 48313- 3734 May, [facility] [id number] [place] [address] 94571- 8206 Apr, [facility] [id number] [place] [address] 82059- 8225 Apr, [facility] [id number] [place] [address] 02624- 2780 Apr, Unspecified disorder of kidney and ureter 593.9 and Diabetes mellitus type 2, uncontrolled 250.02 [facility] [id number] [place] [address] 88078- 2229 Apr, [facility] [id number] [place] [address] 38377- 0583 Apr, [facility] [id number] [place] [address] 74011- 6791 Apr, [facility] [id number] [place] [address] 90581- 7849 Apr, [facility] [id number] [place] [address] 59884- 6836 Apr, Diabetes mellitus type II, uncontrolled 250.02 [facility] [id number] [place] [address] 13299- 1890 Apr, [facility] [id number] [place] [address] 81235- 5348 Mar, [facility] [id number] [place] [address] 57838- 8126 Mar, [facility] [id number] [place] [address] 29829- 7131 Mar, [facility] [id number] [place] [address] 199108- 8396 Mar, Major depressive disorder, recurrent episode, severe, specified as with psychotic behavior 296.34 and Bipolar I disorder, most recent episode (or current) mixed, moderate 296.62 [facility] [id number] [place] [address] 85374- 7299 Mar, Diabetes 250.00 ; Anuria 788.5 ; Nausea and vomiting 787.01 and Diarrhea 787.91 [facility] [id number] [place] [address] 06976- 6872 Mar, Diabetes 250.00 [facility] [id number] [place] [address] 19606- 0164 Mar, [facility] [id number] [place] [address] 51700- 9754 Mar, Diabetes 250.00 [facility] [id number] [place] [address] 63067- 1609 Mar, [facility] [id number] [place] [address] 91285- 2808 Mar, [facility] [id number] [place] [address] 08328- 6637 Mar, [facility] [id number] [place] [address] 13588- 8514 Mar, [facility] [id number] [place] [address] 86669- 7763 Mar, Bipolar I disorder, most recent episode (or current) mixed, moderate 296.62 and Major depressive disorder, recurrent episode, severe, specified as with psychotic behavior 296.34 [facility] [id number] [place] [address] 43977- 9375 Mar, Magnesium deficiency 275.2 ; Hypokalemia 276.8 ; Nausea & vomiting 787.01 and Diabetes mellitus type 2, uncontrolled 250.02 [facility] [id number] [place] [address] 92574- 8128 Feb, [facility] [id number] [place] [address] 19973- 5304 Feb, Bipolar I disorder, most recent episode (or current) mixed, moderate 296.62 [facility] [address] 99353- 7979 Feb, Nausea and vomiting 787.01 ; Left elbow pain 719.42 ; Anuria 788.5 and Diabetes 250.00 [facility] [id number] [place] [address] 91963- 7887 Feb, [facility] [address] 41394- 5353 Feb, Hypopotassemia 276.8 and Hypokalemia 276.8 [facility] [id number] [place] [address] 70618- 9549 Feb, Hypopotassemia 276.8 and Hypokalemia 276.8 [facility] [id number] [place] [address] 02003- 8181 Feb, Seborrheic keratoses 702.19 [facility] [id number] [place] [address] 35830- 7302 Feb, Hypopotassemia 276.8 and Low magnesium levels 275.2 [facility] [id number] [place] [address] 61501- 3328 January, [facility] [address] 00695- 7275 January, [facility] [id number] [place] [address] 44394- 5329 January, [facility] [address] 52068- 1735 January, Scalp lesion 709.9 [facility] [id number] [place] [address] 24788- 1757 January, [facility] [id number] [place] [address] 28714- 0139 Dec, Tear of medial cartilage or meniscus of knee, current 836.0 and 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 [facility] [id number] [place] [address] 08207- 4855 Dec, [facility] [id number] [place] [address] 50906- 3202 Dec, [facility] [id number] [place] [address] 58704- 5638 Dec, Squamous cell carcinoma, 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 [facility] [id number] [place] [address] 98819- 8482 Dec, [facility] [id number] [place] [address] 26572- 5624 Dec, [facility] [id number] [place] [address] 31607- 7695 Nov, [facility] [id number] [address]- 4373 Nov, [facility] [id number] [address]- 6377 Nov, [facility] [address], [place] [address]- 8355 Nov, [facility] [id number] [place] [address] 37736- 8230 Nov, [facility] [id number], [place] [address]- 7386 Nov, [facility] [address], [place] [address]- 8105 Nov, [facility] [place] [facility] [address] [id number] [place] [address]- 7040 Nov, 2014 [facility] [place] [facility] [address] [id number] [place] [address]- 9711 Nov, 2014 [facility] [place] [facility] [address] [id number] [place] [address]- 6094 Nov, 2014 [facility] [place] [facility] [address] [id number] [place] [address]- 1444 Nov, 2014 [facility] [place] [facility] [address] [id number] [place] [address]- 1568 Nov, [facility] [place] [facility] [address] [id number] [place] [address]- 9881 Oct, 2014 [facility] [place] [facility] [address] [facility] [id number] [place] [address]- 4094 Oct, 2014 [facility] [place] [facility] [address] [id number] [place] [address]- 1659 Oct, 2014 [facility] [place] [facility] [address] [facility] [id number] [place] [address]- 1419 Oct, 2014 [facility] [place] [facility] [address] [facility] [id number] [place] [address]- 0200 Oct, 2014 [facility] [place] [facility] [address] [facility] [id number] [place] [address]- 7087 Oct, 2014 [facility] [place] [facility] [address] [facility] [id number] [place] [address]- 5807 Oct, 2014 [facility] [place] [facility] [address] [id number] [place] [address]- 8164 Oct, 2014 [facility] [place] [facility] [address] [id number] [place] [address]- 1330 Oct, 2014 [facility] [place] [facility] [address] [facility] [id number] [place] [address]- 0878 Sep, [facility] [place] [facility] [address] [id number] [place] [address]- 4044 Sep, [facility] [address] [id number] [place] [address]- 0315 Sep, [facility] [place] [facility] [address] [id number] [place] [address]- 5281 Sep, [facility] [place] [facility] [address] [id number] [place] [address]- 4205 Sep, [facility] [place] [facility] [address] [id number] [place] [address]- 1331 Sep, [facility] [place] [facility] [address] [id number] [place] [address]- 0803 Sep, [facility] [place] [facility] [address] [id number] [place] [address]- 6710 Sep, [facility] [place] [facility] [address] [id number] [place] [address]- 5680 Sep, [facility] [place] [facility] [address] [id number] [place] [address]- 8857 Sep, [facility] [place] [facility] [address] [id number] [place] [address]- 4048 Sep, [facility] [place] [facility] [address] [id number] [place] [address]- 8062 Sep, [facility] [place] [facility] [address] [id number] [place] [address]- 8595 Sep, [facility] [place] [facility] [address] [id number] [place] [address]- 4201 Sep, [facility] [place] [facility] [address] [id number] [place] [address]- 9937 Sep, [facility] [place] [facility] [address] [id number] [place] [address]- 2647 Sep, [facility] [place] [facility] [address] [id number] [place] [address]- 9572 Aug, [facility] [place] [facility] [address] [id number] [place] [address]- 4514 Aug, [facility] [address] [id number] [place] [address]- 1036 Aug, [facility] [address] [id number] [place] [address]- 8626 Aug, [facility] [address] [id number] [place] [address]- 9185 Aug, [facility] [address] [id number] [place] [address]- 6070 Aug, [facility] [address] [id number] [place] [address]- 7946 Aug, [facility] [address] [id number] [place] [address]- 7804 Aug, [facility] [address] [id number] [place] [address]- 5256 Aug, [facility] [address] [id number] [place] [address]- 6698 Aug, [facility] [address] [id number] [place] [address]- 4813 Aug, [facility] [address] [place] [address] Aug, [facility] [address] [id number] [place] [address]- 3188 Aug, [facility] [address] [id number] [place] [address]- 0950 Aug, [facility] [address] [id number] [place] [address]- 9859 Aug, [facility] [address] [id number] [place] [address]- 3499 Aug, [facility] [address] [id number] [place] [address]- 1009 Aug, [facility] [place] [facility] [address] [id number] [place] [address]- 6693 Aug, [facility] [place] [facility] [address] [id number] [place] [address]- 8031 Aug, [facility] [place] [facility] [address] [id number] [place] 4167 Aug, [facility] [place] [facility] [address] [id number] [place] [address]- 8544 Aug, [facility] [place] [facility] [address] [id number] [place] [address]- 1299 Aug, [facility] [place] [facility] [address] [id number] [place] [address]- 0219 Aug, [facility] [place] [facility] [address] [id number] [place] [address]- 4476 Aug, [facility] [place] [facility] [address] [id number] [place] [address]- 9335 Aug, [facility] [place] [facility] [address] [id number] [place] [address]- 2916 Aug, [facility] [place] [facility] [address] [id number] [place] [address]- 9239 Aug, [facility] [place] [facility] [address] [id number] [place] [address]- 1099 Aug, [facility] [place] [facility] [address] [id number] [place] [address]- 7148 Aug, [facility] [place] [facility] [address] [id number] [place] 4625 Aug, [facility] [place] [facility] [address] [id number] [place] [address]- 8446 Jul, [facility] [place] [facility] [address] [id number] [place] [address]- 1409 Jul, [facility] [place] [facility] [address] [id number], [place] [address]- 0529 Jul, [facility] [place] [facility] [address] [id number] [place] [address]- 9155 Jul, [facility] [place] [facility] [address] [id number], [place] [address]- 7482 Jul, [facility] [place] [facility] [address] [facility] [id number] [place] [address]- 8686 Jul, [facility] [place] [facility] [address] [id number], [place] [address]- 0625 Jul, [facility] [place] [facility] [address] [id number] [place] [address]- 8865 Jul, [facility] [place] [facility] [address] [facility] [id number] [place] [address]- 8056 Jul, [facility] [place] [facility] [address] [facility] [id number], [place] [address]- 7476 Jul, [facility] [place] [facility] [address] [id number], [place] [address]- 4405 Jun, [facility] [place] [facility] [address] [facility] [id number], [place] [address]- 8365 Jun, [facility] [place] [facility] [address] [facility] [id number], [place] [address]- 6732 Jun, [facility] [place] [facility] [address] [facility] [id number], [place] [address]- 4455 Jun, [facility] [place] [facility] [address] [facility] [id number], [place] [address]- 9753 Jun, [facility] [place] [facility] [address] [id number], [place] [address]- 7321 Jun, [facility] [place] [facility] [address] [facility] [id number], [place] [address]- 8038 Jun, [facility] [place] [facility] [address] [facility] [id number], [place] [address]- 6369 Jun, [facility] [place] [facility] [address] [id number] [place] [address]- 6074 Jun, [facility] [place] [facility] [address] [id number] [place] [address]- 4949 Jun, [facility] [place] [facility] [address] [id number] [place] [address] 2546 29 May, 2013 [facility] [place] [facility] [address] [id number] [place] [address] 2546 29 Sep, 2013 [facility] [place] [facility] [address] [id number] [place] [address] 2542 26 May, 2013 [facility] [place] [facility] [address] [id number] [place] [address] 2542 26 May, 2013 [facility] [place] [facility] [address] [id number] [place] [address]- 6456 17 May, 2013 [facility] [place] [facility] [address] [id number] [place] [address]- 4168 17 May, 2013 [facility] [place] [facility] [address] [id number] [place] [address] 2548 15 May, 2013 [facility] [place] [facility] [address] [id number] [place] [address] 254 15 May, 2013 [facility] [place] [facility] [address] [id number] [place] [address] 2547 15 May, 2013 [facility] [place] [facility] [address] [id number] [place] [address]- 2544 15 May, 2013 [facility] [place] [facility] [address] [id number] [place] [address] 2546 10 Sep, 2013 [facility] [place] [facility] [address] [id number] [place] [address] 2546 10 May, 2013 [facility] [place] [facility] [address] [id number] [place] [address] 2540 09 Sep, 2013 [facility] [place] [facility] [address] [id number] [place] [address]- 4928 May, [facility] [place] [facility] [address] [id number] [place] [address]- 7511 May, [facility] [place] [facility] [address] [id number] [place] [address]- 8857 May, [facility] [place] [facility] [address] [id number] [place] [address]- 9385 Apr, [facility] [place] [facility] [address] [id number] [place] [address]- 5736 Apr, [facility] [place] [facility] [address] [id number] [place] [address]- 9057 Apr, [facility] [place] [facility] [address] [id number] [place] [address]- 6478 Apr, [facility] [place] [facility] [address] [id number] [place] [address]- 5683 Apr, [facility] [place] [facility] [address] [id number] [place] [address]- 9211 Apr, [facility] [place] [facility] [address] [id number] [place] [address]- 5069 Apr, [facility] [place] [facility] [address] [id number] [place] [address]- 5095 Apr, [facility] [place] [facility] [address] [id number] [place] [address]- 5040 Apr, [facility] [place] [facility] [address] [id number] [place] [address]- 8034 Apr, [facility] [place] [facility] [address] [id number] [place] [address]- 1375 Apr, [facility] [place] [facility] [address] [id number] [place] [address]- 3915 Apr, [facility] [place] [facility] [address] [id number] [place] [address]- 8451 Apr, [facility] [place] [facility] [address] [id number] [place] [address]- 3958 Apr, [facility] [place] [facility] [address] [id number] [place] 4454 Apr, [facility] [place] [facility] [address] [id number] [place] [address]- 2812 Mar, [facility] [place] [facility] [address] [id number] [place] [address] Mar, [facility] [place] [facility] [address] [id number] [place] [address] Mar, [facility] [place] [facility] [address] [id number] [place] [address] Mar, [facility] [place] [facility] [address] [id number] [place] [address] Mar, [facility] [place] [facility] [address] [id number] [place] [address] Mar, [facility] [place] [facility] [address] [id number] [place] [address] Mar, [facility] [place] [facility] [address] [id number] [place] [address] Mar, [facility] [place] [facility] [address] [id number] [place] [address] Mar, [facility] [place] [facility] [address] [id number] [place] [address] Mar, [facility] [place] [facility] [address] [id number] [place] [address] Mar, [facility] [place] [facility] [address] [id number] [place] [address] Mar, [facility] [place] [facility] [address] [id number] [place] [address] Mar, [facility] [place] [facility] [address] [id number] [place] [address] Mar, [facility] [place] [facility] [address] [id number] [place] [address] Mar, [facility] [place] [facility] [address] [id number] [place] [address] Mar, [facility] [place] [facility] [address] [id number] [place] [address] Mar, [facility] [place] [facility] [address] [id number] [place] [address] Mar, [facility] [place] [facility] [address] [id number] [place] [address] Feb, [facility] [place] [facility] [address] [id number] [place] [address] Feb, [facility] [place] [facility] [address] [id number] [place] [address] Feb, [facility] [place] [facility] [address] [id number] [place] [address] Feb, [facility] [place] [facility] [address] [id number] [place] [address] Feb, [facility] [place] [facility] [address] [id number] [place] [address]- [address] Feb, [facility] [place] [facility] [address] [id number] [place] [address] Feb, [facility] [place] [facility] [address] [id number] [place] [address] Feb, [facility] [place] [facility] [address] [id number] [place] [address] Feb, [facility] [place] [facility] [address] [id number] [place] [address] Feb, [facility] [place] [facility] [address] [id number] [place] [address]- [address]605 Feb, [facility] [place] [facility] [address] [id number] [place] [address] Feb, [facility] [place] [facility] [address] [id number] [place] [address]- [address] Feb, [facility] [place] [facility] [address] [id number] [place] [address] Feb, [facility] [place] [facility] [address] [id number] [place] [address] January, [facility] [place] [facility] [address] [id number] [place] [address]- [address] January, [facility] [place] [facility] [address] [id number] [place] [address] January, [facility] [place] [facility] [address] [id number] [place] [address]- [address] January, [facility] [place] [facility] [address] [id number] [place] [address] January, [facility] [place] [facility] [address] [id number] [place] [address]- [address] January, [facility] [place] [facility] [address] [id number] [place] [address] January, [facility] [place] [facility] [address] [id number] [place] [address]- [address] January, [facility] [place] [facility] [address] [id number] [place] [address] January, [facility] [place] [facility] [address] [id number] [place] [address]- [address] January, [facility] [place] [facility] [address] [id number] [place] [address] January, [facility] [place] [facility] [address] [id number] [place] [address] January, [facility] [place] [facility] [address] [id number] [place] [address]- [address] January, [facility] [place] [facility] [address] [id number] [place] [address] January, [facility] [address] [id number] [place] [address]- [address] Dec, [facility] [place] [facility] [address] [id number] [place] [address] Dec, [facility] [address] [id number] [place] [address]- [address] Dec, [facility] [place] [facility] [address] [id number] [place] [address]- [address] Dec, [facility] [address] [id number] [place] [address]- [address] Dec, [facility] [address] [id number] [place] [address]- [address] Dec, [facility] [place] [facility] [address] [id number] [place] [address] Dec, [facility] [address] [id number] [place] [address] Dec, [facility] [place] [facility] [address] [id number] [place] [address] Dec, [facility] [address] [id number] [place] [address] 7[address] Dec, [facility] [place] [facility] [address] [id number] [place] [address] Nov, [facility] [place] [facility] [address] [id number] [place] [address]- 7259 Nov, [facility] [place] [facility] [address] [id number] [place] [address]- 0857 Nov, [facility] [place] [facility] [address] [id number] [place] [address]- 9554 Nov, [facility] [place] [facility] [address] [id number] [place] [address] Nov, [facility] [place] [facility] [address] [id number] [place] [address]- 7828 08 Nov, 2013 [facility] [place] [facility] [address] [id number] [place] [address]- 2466 Nov, [facility] [place] [facility] [address] [id number] [place] [address]- 3[address] Nov, [facility] [place] [facility] [address] [id number] [place] [address]- 9252 Nov, [facility] [place] [facility] [address] [id number] [place] [address]- 8429 Nov, [facility] [place] [facility] [address] [id number] [place] [address]- 1084 Oct, [facility] [place] [facility] [address] [id number] [place] [address]- 1555 Oct, [facility] [place] [facility] [address] [id number] [place] [address]- 0635 Oct, [facility] [place] [facility] [address] [id number] [place] [address]- 5126 Oct, [facility] [place] [facility] [address] [id number] [place] [address]- 2535 Oct, [facility] [place] [facility] [address] [id number] [place] [address]- 7036 Oct, [facility] [place] [facility] [address] [id number] [place] [address]- 8951 14 Oct, 2013 [facility] [place] [facility] [address] [id number] [place] [address]- 3317 Oct, [facility] [place] [facility] [address] [id number] [place] [address]- 4291 05 Oct, 2013 [facility] [place] [facility] [address] [id number] [place] [address]- 4413 05 Oct, 2013 [facility] [place] [facility] [address] [id number] [place] [address]- 8363 Oct, [facility] [place] [facility] [address] [id number] [place] [address]- 9373 Oct, [facility] [place] [facility] [address] [id number] [place] [address]- 4123 Oct, [facility] [place] [facility] [address] [id number] [place] [address]- 5395 Oct, [facility] [place] [facility] [address] [id number] [place] [address]- 4749 Sep, [facility] [place] [facility] [address] [id number] [place] [address]- 8893 Sep, [facility] [place] [facility] [address] [id number] [place] [address]- 5712 Sep, [facility] [place] [facility] [address] [id number] [place] [address]- 3375 Sep, [facility] [place] [facility] [address] [id number] [place] [address]- 2333 Sep, [facility] [place] [facility] [address] [id number] [place] [address]- 9282 Sep, [facility] [place] [facility] [address] [id number] [place] [address]- 4021 Sep, [facility] [place] [facility] [address] [id number] [place] [address]- 6338 Sep, [facility] [place] [facility] [address] [id number] [place] [address]- 5476 Sep, [facility] [place] [facility] [address] [id number] [place] [address]- 8934 Sep, [facility] [place] [facility] [address] [id number] [place] [address]- 1494 Aug, [facility] [place] [facility] [address] [id number] [place] [address]- 7464 Aug, [facility] [place] [facility] [address] [id number] [place] [address]- 5844 Jul, [facility] [place] [facility] [address] [id number] [place] [address]- 4237 Jul, [facility] [place] [facility] [address] [id number] [place] [address]- 7186 Jul, [facility] [place] [facility] [address] [id number], [place] [address]- 2615 Jul, [facility] [place] [facility] [address] [id number] [place] [address]- 5678 Jul, [facility] [place] [facility] [address] [id number], [place] [address]- 5[address] Jul, [facility] [place] [facility] [address] [id number], [place] [address]- 7893 Jul, [facility] [place] [facility] [address] [id number], [place] [address]- 9305 Jul, [facility] [place] [facility] [address] [id number], [place] [address]- 0369 Jul, [facility] [place] [facility] [address] [id number], [place] [address]- 2400 Jul, [facility] [place] [facility] [address] [id number], [place] [address]- 0297 Jul, [facility] [place] [facility] [address] [id number], [place] [address]- 9581 Jul, [facility] [place] [facility] [address] [id number], [place] [address]- 6806 Jul, [facility] [place] [facility] [address] [id number], [place] [address]- 6788 Jul, [facility] [place] [facility] [address] [id number], [place] [address]- 9585 Jul, [facility] [place] [facility] [address] [id number] [place] [address]- 5926 Jul, 2012 [facility] [address] [id number] [place] [address]- 7754 Jul, 2012 [facility] [place] [facility] [address] [id number] [place] [address]- 3000 Jul, 2012 [facility] [place] [facility] [address] [id number] [place] [address]- 0549 Jul, 2012 [facility] [place] [facility] [address] [id number] [place] [address]- 8378 Jun, 2012 [facility] [place] [facility] [address] [id number] [place] [address]- 4471 Jun, 2012 [facility] [place] [facility] [address] [id number] [place] [address] Jun, 2012 [facility] [place] [facility] [address] [id number] [place] [address]- 9753 Jun, 2012 [facility] [place] [facility] [address] [id number] [place] [address]- 2066 Jun, 2012 [facility] [place] [facility] [address] [id number] [place] [address]- 9325 Jun, 2012 [facility] [place] [facility] [address] [id number] [place] [address]- 4102 Jun, 2012 [facility] [place] [facility] [address] [id number] [place] [address]- 5826 Jun, 2012 [facility] [place] [facility] [address] [id number] [place] [address]- 2317 Jun, [facility] [place] [facility] [address] [id number] [place] [address]- 4199 Jun, [facility] [place] [facility] [address] [id number] [place] [address]- 0468 Jun, [facility] [place] [facility] [address] [id number] [place] [address]- 7412 May, [facility] [place] [facility] [address] [id number] [place] [address]- 3637 25 May, 2012 [facility] [place] [facility] [address] [id number] [place] [address]- 7006 19 May, 2012 [facility] [place] [facility] [address] [id number] [place] [address]- 6785 17 May, 2012 [facility] [place] [facility] [address] [id number] [place] [address] 2546 11 May, 2012 [facility] [place] [facility] [address] [id number] [place] [address]- 5526 10 May, 2012 [facility] [place] [facility] [address] [id number] [place] [address]- 5849 09 May, 2013 [facility] [place] [facility] [address] [id number] [place] [address]- 4331 05 May, 2012 [facility] [place] [facility] [address] [id number] [place] [address]- 2939 Apr, [facility] [place] [facility] [address] [id number] [place] [address]- 8629 Apr, [facility] [place] [facility] [address] [id number] [place] [address]- 6852 Apr, [facility] [place] [facility] [address] [id number] [place] [address]- 4527 Apr, [facility] [place] [facility] [address] [id number] [place] [address]- 6459 Apr, [facility] [place] [facility] [address] [id number] [place] [address]- 4264 Mar, [facility] [place] [facility] [address] [id number] [place] [address]- 4200 Mar, [facility] [place] [facility] [address] [id number] [place] [address]- 3523 Mar, [facility] [place] [facility] [address] [id number] [place] [address]- 1358 Mar, [facility] [address] [id number] [place] [address]- 3505 Mar, [facility] [place] [facility] [address] [id number] [place] [address]- 1292 Mar, [facility] [place] [facility] [address] [id number] [place] [address]- 9363 Mar, [facility] [place] [facility] [address] [id number] [place] [address]- 3012 Mar, [facility] [place] [facility] [address] [id number] [place] [address]- 7088 Feb, [facility] [place] [facility] [address] [id number] [place] [address]- 6182 Feb, [facility] [address] [id number] [place] [address]- 2612 January, [facility] [place] [facility] [address] [id number] [place] [address]- 5679 January, [facility] [address] [id number] [place] [address]- 1748 Dec, [facility] [place] [facility] [address] [id number] [place] [address]- 9083 Dec, [facility] [place] [facility] [address] [id number] [place] [address]- 6184 Nov, [facility] [place] [facility] [address] [id number] [place] [address]- 3743 Nov, [facility] [place] [facility] [address] [id number] [place] [address]- 0052 Nov, [facility] [place] [facility] [address] [id number] [place] [address]- 6310 Nov, [facility] [place] [facility] [address] [id number] [place] [address]- 1047 Oct, [facility] [place] [facility] [address] [id number] [place] [address]- 1168 Oct, 2012 [facility] [address] [id number] [place] [address]- 5720 Oct, [facility] [place] [facility] [address] [id number] [place] [address]- 0984 Oct, 2012 [facility] [place] [facility] [address] [id number] [place] [address]- 9667 16 Oct, 2012 [facility] [place] [facility] [address] [id number] [place] [address]- 0753 14 Oct, 2012 [facility] [place] [facility] [address] [id number] [place] [address]- 7558 08 Oct, 2012 [facility] [address] [facility] [id number] [place] [address]- 9470 07 Oct, 2012 [facility] [place] [facility] [address] [id number] [place] [address]- 7162 03 Oct, 2012 [facility] [place] [facility] [address] [id number] [place] [address]- 6813 Sep, [facility] [place] [facility] [address] [id number] [place] [address]- 5930 Sep, [facility] [place] [facility] [address] [id number], [place] [address]- 7391 Sep, [facility] [place] [facility] [address] [id number], [place] [address]- 9046 Sep, [facility] [place] [facility] [address] [id number] [place] [address]- 5734 Sep, [facility] [place] [facility] [address] [id number] [place] [address]- 3341 Sep, [facility] [place] [facility] [address] [id number], [place] [address]- 7010 Sep, [facility] [place] [facility] [address] [id number], [place] [address]- 2327 Sep, [facility] [place] [facility] [address] [id number] [place] [address]- 9908 Aug, [facility] [place] [facility] [address] [id number] [place] [address]- 8457 Aug, [facility] [place] [facility] [address] [facility] [id number] [place] [address]- 4972 Aug, [facility] [place] [facility] [address] [id number] [place] [address]- 0325 Aug, [facility] [place] [facility] [address] [id number] [place] [address]- 2481 Aug, [facility] [place] [facility] [address] [id number] [place] [address]- 2161 Aug, [facility] [place] [facility] [address] [place] [id number] [place] [address]- 6032 Aug, [facility] [place] [facility] [address] [facility] [id number] [place] [address]- 8856 Aug, [facility] [place] [facility] [address] [facility] [id number] [place] [address]- 1086 Jul, [facility] [place] [facility] [address] [facility] [id number] [place] [address]- 9411 Jul, [facility] [place] [facility] [address] [facility] [id number] [place] [address]- 3730 Jul, [facility] [place] [facility] [address] [facility] [id number], [place] [address]- 1935 Jul, [facility] [place] [facility] [address] [id number] [place] [address]- 6033 Jul, [facility] [place] [facility] [address] [facility] [id number] [place] [address]- 0739 Jul, [facility] [place] [facility] [address] [facility] [id number] [place] [address]- 5530 Jun, [facility] [place] [facility] [address] [id number] [place] [address]- 4576 Jun, [facility] [place] [facility] [address] [id number] [place] [address]- 0120 Jun, [facility] [place] [facility] [address] [id number] [place] [address]- 0816 Jun, [facility] [place] [facility] [address] [id number] [place] [address]- 9286 Jun, [facility] [place] [facility] [address] [id number] [place] [address]- 5931 Jun, [facility] [place] [facility] [address] [id number] [place] [address]- 1837 Jun, [facility] [place] [facility] [address] [id number] [place] [address]- 4649 Jun, [facility] [place] [facility] [address] [id number] [place] [address]- 2243 10 Jun, 2012 [facility] [place] [facility] [address] [id number] [place] [address]- 7303 26 May, 2012 [facility] [place] [facility] [address] [id number] [place] [address]- 6751 24 May, 2012 [facility] [place] [facility] [address] [id number] [place] [address]- 0978 18 May, 2012 [facility] [place] [facility] [address] [id number] [place] [address]- 4940 30 Apr, 2012 [facility] [place] [facility] [address] [id number] [place] [address]- 2545 29 Apr, 2012 [facility] [place] [facility] [address] [id number] [place] [address]- 9416 18 Apr, 2012 [facility] [place] [facility] [address] [id number] [place] [address] 2546 14 Apr, 2012 [facility] [place] [facility] [address] [id number] [place] [address]- 3912 Apr, [facility] [place] [facility] [address] [id number] [place] [address]- 8554 Apr, [facility] [place] [facility] [address] [id number] [place] [address]- 0813 Mar, [facility] [place] [facility] [address] [id number] [place] [address]- 9970 Mar, [facility] [place] [facility] [address] [id number] [place] [address]- 9685 Mar, [facility] [place] [facility] [address] [id number] [place] [address]- 9508 Mar, [facility] [place] [facility] [address] [id number] [place] [address]- 3216 Feb, [facility] [place] [facility] [address] [id number] [place] [address]- 6610 Feb, [facility] [place] [facility] [address] [id number] [place] [address]- 1016 Feb, [facility] [place] [facility] [address] [id number] [place] [address]- 7483 Feb, [facility] [place] [facility] [address] [id number] [place] [address]- 3482 Feb, [facility] [place] [facility] [address] [id number] [place] [address]- 8644 January, [facility] [place] [facility] [address] [id number] [place] [address]- 8995 January, [facility] [place] [facility] [address] [id number] [place] [address]- 7121 January, [facility] [place] [facility] [address] [id number] [place] [address]- 5401 January, [facility] [place] [facility] [address] [id number] [place] [address]- 9177 January, [facility] [place] [facility] [address] [id number] [place] [address]- 3336 January, [facility] [address] [id number] [place] [address]- 8505 24 Dec, 2011 [facility] [place] [facility] [address] [id number] [place] [address]- 5239 24 Dec, 2011 [facility] [place] [facility] [address] [id number] [place] [address]- 2891 17 Dec, 2011 [facility] [place] [facility] [address] [id number] [place] [address]- 0799 09 Dec, 2011 [facility] [place] [facility] [address] [id number] [place] [address]- 1954 06 Dec, 2011 [facility] [place] [facility] [address] [id number] [place] [address]- 6416 27 Nov, 2011 [facility] [place] [facility] [address] [id number] [place] [address]- 5404 14 Nov, 2011 [facility] [place] [facility] [address] [id number] [place] [address]- 4392 12 Nov, 2011 [facility] [place] [facility] [address] [id number] [place] [address]- 9434 07 Nov, 2011 [facility] [place] [facility] [address] [facility] [id number] [place] [address]- 2889 29 Oct, 2011 [facility] [place] [facility] [address] [id number] [place] [address]- 8158 28 Oct, 2011 [facility] [place] [facility] [address] [facility] [id number] [place] [address]- 3512 24 Oct, 2011 [facility] [place] [facility] [address] [id number] [place] [address]- 8133 13 Oct, 2011 [facility] [place] [facility] [address] [facility] [id number] [place] [address]- 0782 08 Oct, 2011 [facility] [place] [facility] [address] [facility] [id number] [place] [address]- 0339 Sep, [facility] [place] [facility] [address] [id number] [place] [address]- 2755 Sep, [facility] [place] [facility] [address] [id number] [place] [address]- 4828 Sep, [facility] [place] [facility] [address] [id number] [place] [address]- 2607 Sep, [facility] [place] [facility] [address] [id number] [place] [address]- 5865 Sep, [facility] [place] [facility] [address] [id number] [place] [address]- 7213 Sep, [facility] [place] [facility] [address] [id number] [place] [address]- 3212 Aug, [facility] [place] [facility] [address] [id number] [place] [address]- 0104 Aug, [facility] [place] [facility] [address] [id number], [place] [address]- 6298 Aug, [facility] [place] [facility] [address] [id number] [place] [address] Jul, [facility] [place] [facility] [address] [id number], [place] [address] Jul, [facility] [place] [facility] [address] [id number], [place] [address] Jul, [facility] [place] [facility] [address] [id number], [place] [address] Jul, [facility] [place] [facility] [address] [id number] [place] [address] Jun, [facility] [place] [facility] [address] [id number], [place] [address] Jun, [facility] [place] [facility] [address] [id number], [place] [address] Jun, [facility] [place] [facility] [address] [id number], [place] [address] 10 Jun, 2011 [facility] [address] [id number] [place] [address] 10 Jun, 2011 [facility] [place] [facility] [address] [id number] [place] [address] 10 Jun, 2011 [facility] [place] [facility] [address] [facility] [id number] [place] [address] 11 Mar, 2011 [facility] [place] [facility] [address] [id number] [place] [address] 18 Dec, 2010 [facility] [address] [id number] [place] [address]69 11 Dec, 2010 [facility] [place] [facility] [address] [id number] [place] [address] 18 Nov, 2010 [facility] [address] [facility] [id number] [place] [address] 16 Nov, 2010 [facility] [place] [facility] [address] [facility] [id number] [place] [address] 10 Sep, 2010 [facility] [address] [facility] [id number] [place] [address] 31 Aug, 2010 [facility] [place] [facility] [address] [facility] [id number] [place] [address] 9470 29 Aug, 2010 [facility] [place] [facility] [address] [facility] [id number] [place] [address] 29 Aug, 2010 [facility] [place] [facility] [address] [id number] [place] [address] 29 Aug, 2010 [facility] [place] [facility] [address] [id number] [place] [address] 5[address] 27 Aug, 2010 [facility] [place] [facility] [address] [facility] [id number] [place] [address]- [address] 14 Aug, 2010 [facility] [place] [facility] [address] [facility] [id number] [place] [address] 08 Aug, 2010 [facility] [place] [facility] [address] [id number] [place] [address] 67[address] 08 Aug, 2010 [facility] [place] [facility] [address] [id number] [place] [address]- 1476 Aug, [facility] [place] [facility] [address] [id number] [place] [address] 2546 Aug, [facility] [place] [facility] [address] [id number] [place] [address] 2546 Aug, [facility] [place] [facility] [address] [id number] [place] [address] 2547 Aug, [facility] [place] [facility] [address] [id number] [place] [address] Jul, [facility] [place] [facility] [address] [id number] [place] [address] Jul, [facility] [place] [facility] [address] [id number] [place] [address] 27[address] Jul, [facility] [place] [facility] [address] [id number] [place] [address] Jul, [facility] [place] [facility] [address] [id number] [place] [address] 2914 Jul, [facility] [place] [facility] [address] [facility] [id number] [place] [address] Jul, [facility] [place] [facility] [address] [id number] [place] [address] Jun, [facility] [place] [facility] [address] [id number] [place] [address] 2546 Jun, [facility] [place] [facility] [address] [id number] [place] [address] 2546 Jun, [facility] [place] [facility] [address] [id number] [place] [address] 2546 Jun, [facility] [place] [facility] [address] [id number] [place] [address] 280[address] 16 Apr, 2010 [facility] [place] [facility] [address] [id number] [place] [address] Mar, [facility] [place] [facility] [address] [id number] [place] [address] Feb, [facility] [place] [facility] [address] [facility] [id number] [place] [address] January, [facility] [place] [facility] [address] [id number] [place] [address]- 1142 15 Dec, 2009 [facility] [address] [id number] [place] [address]- 87[address] Nov, [facility] [place] [facility] [address] [id number] [place] [address]- 8164 Aug, [facility] [place] [facility] [address] [id number] [place] [address]- 1042 Aug, [facility] [place] [facility] [address] [id number], [place] [address] Aug, [facility] [place] [facility] [address] [id number], [place] [address] Jul, [facility] [place] [facility] [address] [facility] [id number], [place] [address] Jul, [facility] [place] [facility] [address] [id number], [place] [address] Jul, [facility] [place] [facility] [address] [id number], [place] [address]- 119[address] 30 Jun, 2009 [facility] [place] [facility] [address] [id number], [place] [address] 29 Jun, 2009 [facility] [place] [facility] [address] [id number], [place] [address] Jun, [facility] [place] [facility] [address] [id number], [place] [address]- 1702 Jun, [facility] [place] [facility] [address] [facility] [id number], [place] [address] Jun, [facility] [address] [facility] [id number], [place] [address] Jun, [facility] [address] [id number], [place] [address] Apr, [facility] [address] [facility] [id number], [place] [address] 140[address] Apr, [facility] [address] [id number], [place] [address] Feb, [facility] [address] [id number], [place] [address] January, [facility] [address] [id number], [place] [address] Dec, IMMUNIZATIONS No Known Immunizations SOCIAL HISTORY Never Assessed REASON FOR VISIT Lab (walk-in) PLAN OF CARE VITAL SIGNS MEDICATIONS Unknown Medications RESULTS No Results PROCEDURES Procedure Date Ordered Result Body Site LAB NOT BILLED BY [facility] November 30, 2017 VENIPUNCT, ROUTINE* November 30, 2017 INSTRUCTIONS MEDICATIONS ADMINISTERED No Known Medications [...] urinate 09/16/15 Hospitalization History [facility] early Hospitalization History hyperkalemia 10/2017 Hospitalization History fluid in lung
--- OUTSIDE RECORDS SUMMARY | 2018-08-08 14:34 | XMS REPORT ---
Author Author ROSELINE LUIS Organization [facility] Address [address] [place] [address] Care Team Providers Care Probation And Parole Officer Name Role Phone ROSELINE LUIS Unavailable PROBLEMS Type Condition ICD9-CM Code NYT33-PB Code Onset Dates Condition Status SNOMED Code Problem Chronic lymphocytic leukemia C91.10 Active 62055536 Problem Insomnia, unspecified type G47.00 Active 054943552 Problem Lymphocytosis D72.820 Active 24702358 Problem Anxiety F41.9 Active 08718705 Problem Eye exam abnormal R93.8 Active 906621947 Problem Morbid obesity E66.01 Active 143689270 Problem Diabetic polyneuropathy associated with type 2 diabetes mellitus E11.42 Active 85106893 Problem Essential hypertension I10 Active 95525227 Problem Falling R29.6 Active 501952227 Problem 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 Active 369278733 Problem Cough R05 Active 20830472 Problem Dysuria R30.0 Active 61048132 Problem Eustachian tube dysfunction, unspecified laterality H69.80 Active 56783077 Problem Bilateral primary osteoarthritis of knee M17.0 Active 359439651 Problem Polyneuropathy associated with underlying disease G63 Active 480086466 Problem Anemia of chronic illness D63.8 Active 852178355 Problem Retinal edema H35.81 Active 2490136 Problem DM neuro manif type II E11.49 Active 94506301 Problem Diabetes E11.9 Active 49497258 Problem Hypokalemia E87.6 Active 45269667 Problem Benign prostatic hyperplasia with lower urinary tract symptoms, unspecified morphology N40.1 Active 135332669 Problem Reactive airway disease J45.909 Active 075516648050 Problem Bipolar I disorder, most recent episode (or current) mixed, moderate F31.62 Active 91207118 Problem Chronic pain G89.29 Active 59847786 Problem Leukocytosis D72.829 Active 432089778 ALLERGIES No Information ENCOUNTERS Encounter Location Date Diagnosis [facility] [address], [place] [address] Mar, [place] [id number] [place] [address] 28692- 8720 Feb, [place] [id number] [place] [address] 59531- 9655 January, Bipolar I disorder, most recent episode (or current) mixed, moderate F31.62 [place] [address] [place] [id number] [place] [address] 29465- 9581 Dec, Bipolar I disorder, most recent episode (or current) mixed, moderate F31.62 and BMI 50.0-59.9, adult Z68.43 [place] [address] [place] [id number] [place] [address] 98516- 7876 Dec, Bipolar I disorder, most recent episode (or current) mixed, moderate F31.62 [place] [address] [place] [id number] [place] [address] 26547- 9034 Dec, Chronic pain G89.29 [place] [address] [place] [id number] [place] [address] 98391- 1589 Dec, DM neuro manif type II E11.49 ; Right flank pain R10.9 ; pen[facility]iary 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 Z79.891 ; Encounter for medication monitoring Z51.81 and BMI 50.0-59.9, adult Z68.43 [place] [address] [place] [address] 86406- 4609 Dec, Bipolar I disorder, most recent episode (or current) mixed, moderate F31.62 [place] [address], [place] [address] 9189 Nov, Bipolar I disorder, most recent episode (or current) mixed, moderate F31.62 [place] [address] [place] [address] 12924- 4592 Nov, Chronic pain G89.29 [place] [address] [place] [id number] [place] [address] 35611- 8951 Nov, Bipolar I disorder, most recent episode (or current) mixed, moderate F31.62 [place] [address] [place] [id number] [place] [address] Nov, Hypokalemia E87.6 [place] [address] [place] [id number] [place] [address] 01358- 1982 Nov, Bipolar I disorder, most recent episode (or current) mixed, moderate F31.62 [place] [address] [place] [id number] [place] [address] 54277- 7222 Oct, Chronic pain G89.29 [place] [address] 226320- 9871 Oct, BMI 50.0-59.9, adult Z68.43 and Bipolar I disorder, most recent episode (or current) mixed, moderate F31.62 [place] [address] [place] [id number] [place] [address] 19107- 1905 Oct, Bipolar I disorder, most recent episode (or current) mixed, moderate F31.62 [place] [address] [place] [id number] [place] [address] 18913- 5876 Oct, [place] [address] [place] [id number] [place] [address] 33412- 7736 Oct, Hypokalemia E87.6 [place] [address] [place] [id number] [place] [address] 66963- 2023 Oct, DM neuro manif type II E11.49 [place] [address] [place] [id number] [place] [address] 70163- 2383 Oct, Bipolar I disorder, most recent episode (or current) mixed, moderate F31.62 [place] [address] [place] [id number] [place] [address] 69968- 6132 Oct, Bipolar I disorder, most recent episode (or current) mixed, moderate F31.62 [place] [address] [place] [id number] [place] [address] 64831- 1333 14 Oct, 2017 Hyperkalemia E87.5 ; Falling R29.6 ; BMI 50.0-59.9, adult Z68.43 and Acute left ankle pain M25.572 [place] [address] [place] [id number] [place] [address] 72000- 0555 08 Oct, 2017 DM neuro manif type II E11.[address] 53865- 1464 Oct, [place] [address] 57026- 3018 Sep, Chronic pain G89.29 [place] [address] 57487- 8625 Sep, [address] 60725- 2697 Sep, Bilateral primary osteoarthritis of knee M17.[address] 78983- 6329 Sep, Generalized edema R60.[address] 61428- 2737 16 Sep, 2017 Bipolar I disorder, most recent episode (or current) mixed, moderate F31.[address] 17793- 4228 15 Sep, 2017 Hypoxia R09.02 ; Other hypervolemia E87.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 ; Anemia of chronic illness D63.8 and BMI 50.0- 59.9, adult Z68.43 [place] [id number] [place] [address] 42691- 9287 Sep, [address] 22599- 0988 Sep, Bipolar I disorder, most recent episode (or current) mixed, moderate F31.62 [place] [address] [place] [id number] [place] [address] 78079- 1020 Aug, Chronic pain G89.29 [facility] [address] [place] [id number] [place] [address] 33191- 1740 Aug, Generalized edema R60.1 [facility] [address] 869512- 0302 Aug, [facility] [address] [place] [id number] [place] [address] 46502- 1318 Aug, [place] [address] [place] [id number] [place] [address] 90[address] Aug, Bipolar I disorder, most recent episode (or current) mixed, moderate F31.62 [place] [address] [place] [id number] [place] [address] 02727- 3125 Aug, Bipolar I disorder, most recent episode (or current) mixed, moderate F31.62 [place] [address] [place] [id number] [place] [address] 68284- 1694 Aug, Chronic pain G89.29 [place] [address] [place] [id number] [place] [address] 79506- 7477 Jul, Bipolar I disorder, most recent episode (or current) mixed, moderate F31.62 [place] [address] [place] [id number] [place] [address] 66417- 4850 Jul, Bipolar I disorder, most recent episode (or current) mixed, moderate F31.62 and BMI 60.0-69.9, adult Z68.44 [place] [address] [place] [id number] [place] [address] Jul, Bipolar I disorder, most recent episode (or current) mixed, moderate F31.62 [place] [address] [place] [id number] [place] [address] 36918- 4732 06 Jul, 2017 Chronic pain G89.29 [facility] [address], [place] [address]- 8125 Jul, Bipolar I disorder, most recent episode (or current) mixed, moderate F31.62 [facility] [address], [place] [address]- 5841 18 Jun, 2017 Polyneuropathy associated with underlying disease G63 and Diabetes E11.9 [facility] [address] [place] [id number] [place] [address] 51897- 9442 16 Jun, 2017 Bipolar I disorder, most recent episode (or current) mixed, moderate F31.62 [facility] [address] [place] [id number] [place] [address] 353655- 9883 Jun, Chronic pain G89.29 [facility] [address] [place] [id number] [place] [address] 96582- 4652 May, Bipolar I disorder, most recent episode (or current) mixed, moderate F31.62 [facility] [address], [place] [address]- 3995 21 May, 2017 Bipolar I disorder, most recent episode (or current) mixed, moderate F31.62 [facility] [address] [place] [address] 67431- 1862 20 May, 2017 Diabetic polyneuropathy associated with type 2 diabetes mellitus E11.42 [facility] [address], [place] [address]- 8371 18 May, 2017 Bipolar I disorder, most recent episode (or current) mixed, moderate F31.62 [facility] [address], [place] [address]- 4764 13 May, 2017 Bipolar I disorder, most recent episode (or current) mixed, moderate F31.62 [facility] [address], [place] [address]- 1895 May, Chronic pain G89.29 [facility] [address] [place] [address] 48052- 4794 Apr, Bipolar I disorder, most recent episode (or current) mixed, moderate F31.62 [facility] [address] [place] [id number] [place] [address] 39337- 6217 Apr, [facility] [address] [place] [id number] [place] [address] 79439- 2546 Apr, Chronic pain G89.29 and DM neuro manif type II E11.49 [facility] [address] 22134- 3108 Apr, [facility] [address] 35383- 4291 Apr, Bipolar I disorder, most recent episode (or current) mixed, moderate F31.62 [facility] [address] [place] [id number] [place] [address] 46530- 3270 Apr, Chronic pain G89.29 [facility] [address] 70228- 8285 Apr, Iliotibial band syndrome, left M76.32 [facility] [address] [place] [id number] [place] [address] 03376- 1091 Apr, Bipolar I disorder, most recent episode (or current) mixed, moderate F31.62 [facility] [address] [place] [id number] [place] [address] 31917- 7813 Mar, Bipolar I disorder, most recent episode (or current) mixed, moderate F31.62 [facility] [address] [place] [id number] [place] [address] 11173- 8475 Mar, Bipolar I disorder, most recent episode (or current) mixed, moderate F31.62 [facility] [address] [place] [id number] [place] [address] 30735- 8105 Mar, [facility] [address] [place] [id number] [place] [address] 99485- 3987 Mar, Bipolar I disorder, most recent episode (or current) mixed, moderate F31.62 [place] [address] [place] [address] 38485- 0272 Mar, Chronic pain G89.29 [facility] [address] [place] [id number] [place] [address] 48211- 2281 Mar, Bipolar I disorder, most recent episode (or current) mixed, moderate F31.62 [facility] [address] [place] [address] 01898- 6938 Mar, Bipolar I disorder, most recent episode (or current) mixed, moderate F31.62 [place] [address] [place] [id number] [place] [address] 16054- 1373 Mar, Acute pain of left knee M25.562 ; Left hip pain M25.552 ; Generalized edema R60.1 and Tongue swelling R22.0 [place] [address] [place] [id number] [place] [address] 78309- 3051 Mar, [facility] [address] [place] [id number] [place] [address] 52365- 8310 Feb, Chronic pain G89.29 [place] [address] [place] [id number] [place] [address] 77545- 2070 Feb, Diabetes E11.9 [facility] [address] [place] [address] 61745- 6005 January, Chronic pain G89.29 [facility] [address] [place] [id number] [place] [address] 56680- 5200 January, [facility] [address] [place] [address] 59920- 7794 January, Bipolar I disorder, most recent episode (or current) mixed, moderate F31.62 [facility] [address] [place] [address] 74807- 7399 Dec, Bipolar I disorder, most recent episode (or current) mixed, moderate F31.62 [facility] [address] [place] [id number] [place] [address] 65225- 3619 Dec, Chronic pain G89.29 [facility] [address] [place] [address] 97526- 8146 Dec, Bipolar I disorder, most recent episode (or current) mixed, moderate F31.62 [facility] [address] [place] [id number] [place] [address] 87253- 2106 Dec, Diabetes E11.9 ; Essential hypertension I10 ; Chronic pain G89.29 and Morbid obesity E66.01 [facility] [address] [place] [id number] [place] [address] 63297- 9654 Dec, [facility] [address] [place] [id number] [place] [address] 65041- 6937 Dec, Bipolar I disorder, most recent episode (or current) mixed, moderate F31.62 [place] [address] [place] [id number] [place] [address] 02822- 6054 Dec, Bipolar I disorder, most recent episode (or current) mixed, moderate F31.62 [facility] [address] [place] [address] 32359- 2485 Nov, Chronic pain G89.29 [facility] [address] [place] [id number] [place] [address] 52372- 1689 Nov, Bipolar I disorder, most recent episode (or current) mixed, moderate F31.62 [facility] [address] [place] [address] 82188- 2301 Nov, [facility] [address] [place] [id number] [place] [address] 33471- 0031 Nov, Bipolar I disorder, most recent episode (or current) mixed, moderate F31.62 [place] [address] [place] [id number] [place] [address] 92303- 7038 Nov, Bipolar I disorder, most recent episode (or current) mixed, moderate F31.62 [place] [address] [place] [id number] [place] [address] 12366- 9021 Nov, [facility] [address], [place] [address]- 9926 Nov, [facility] [id number] [place] [address] 40942- 3376 Nov, [facility] [id number] [place] [address] 83689- 6804 Oct, Chronic pain G89.29 [facility] [address] [place] [id number] [place] [address] 83136- 3665 Oct, Bipolar I disorder, most recent episode (or current) mixed, moderate F31.62 [facility] [address] [place] [address] 91481- 2644 Oct, [facility] [address] [place] [address] 62829- 4156 Oct, Chronic pain G89.29 ; Diabetes E11.9 ; Anxiety F41.9 and 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 [facility] [address], [place] [address]- 2659 Oct, [facility] [address] [place] [address] 77319- 0013 Oct, Diabetes E11.9 [facility] [address] [place] [address] 39182- 4781 Oct, Bipolar I disorder, most recent episode (or current) mixed, moderate F31.62 [facility] [address] [address]- 9496 Sep, Chronic pain G89.29 [facility] [address] [place] [address] 73466- 4620 Sep, Chronic pain G89.29 [facility] [address] [place] [address] 66809- 0332 Aug, Chronic pain G89.29 [facility] [address] [place] [id number] [place] [address] 88941- 1836 Jul, [place] [address] [place] [id number] [place] [address] 18227- 7880 Jul, Diabetes E11.9 [place] [address] [place] [id number] [place] [address] 09608- 5830 Jul, Chronic pain G89.29 [place] [address] 08815- 4644 Jul, Bipolar I disorder, most recent episode (or current) mixed, moderate F31.62 [place] [address] [place] [id number] [place] [address] 132996- 2446 Jun, Bipolar I disorder, most recent episode (or current) mixed, moderate F31.62 [place] [address] [place] [id number] [place] [address] 62546- 4418 Jun, [place] [address] [place] [id number] [place] [address] 38541- 9032 Jun, Bipolar I disorder, most recent episode (or current) mixed, moderate F31.62 [place] [address] [place] [id number] [place] [address] 80688- 7307 30 May, 2016 Insomnia, unspecified type G47.00 [place] [address] [place] [id number] [place] [address] 74478- 0044 May, Bipolar I disorder, most recent episode (or current) mixed, moderate F31.62 [place] [address] [place] [id number] [place] [address] 84752- 5315 14 May, 2016 [place] [id number] [place] [address] 31677- 9826 08 May, 2016 Bipolar I disorder, most recent episode (or current) mixed, moderate F31.62 [place] [address] [place] [id number] [place] [address] 13305- 8214 06 May, 2016 Diabetes E11.9 and Essential hypertension I10 [place] [address] [place] [address] 34315- 5898 Apr, Chronic pain G89.29 [facility] [address] [place] [id number] [place] [address] 93394- 2478 Apr, Bipolar I disorder, most recent episode (or current) mixed, moderate F31.62 [place] [address] [place] [id number] [place] [address] 87641- 6470 Apr, [facility] [address] [place] [id number] [place] [address] 18681- 3930 Apr, [place] [address] [place] [id number] [place] [address] 33836- 0010 Mar, Chronic pain G89.29 ; Headache, unspecified headache type R51 ; Neuropathy G62.9 ; Pain of right hip joint M25.551 and Essential hypertension I10 [place] [address] [place] [id number] [place] [address] 65609- 4533 Mar, Chronic pain G89.29 [place] [address] [place] [id number] [place] [address] 92323- 7561 Mar, Bipolar I disorder, most recent episode (or current) mixed, moderate F31.62 [place] [id number] [place] [address] 38027- 6912 Feb, Bipolar I disorder, most recent episode (or current) mixed, moderate F31.62 and Insomnia, unspecified type G47.00 [place] [address] [place] [address] 85495- 3111 Feb, Chronic pain G89.29 [place] [address] [place] [id number] [place] [address] 60025- 2195 Feb, Bipolar I disorder, most recent episode (or current) mixed, moderate F31.62 [place] [address] [place] [address] 70863- 2565 January, Bipolar I disorder, most recent episode (or current) mixed, moderate F31.62 [facility] [address] [place] [address] 52732- 5176 January, Chronic pain G89.29 [facility] [address] [place] [id number] [place] [address] 71338- 6730 January, Chronic pain G89.29 and Essential hypertension I10 [facility] [address] [place] [id number] [place] [address] 04664- 9082 January, Bipolar I disorder, most recent episode (or current) mixed, moderate F31.62 [facility] [address] [place] [id number] [place] [address] 47560- 8153 Dec, [facility] [address] [place] [id number] [place] [address] 69596- 7095 Dec, [facility] [address] [place] [id number] [place] [address] 30264- 0919 Dec, [facility] [address] [place] [id number] [place] [address] 71544- 3890 Dec, [facility] [address] [place] [id number] [place] [address] 54750- 1050 Nov, Reactive airway disease J45.909 [facility] [address] [place] [id number] [place] [address] 85668- 8712 Nov, [facility] [address] [place] [id number] [place] [address] 85103- 2138 Nov, [facility] [address] [place] [id number] [place] [address] 51111- 7504 Nov, [facility] [address] [place] [id number] [place] [address] 86611- 3201 Nov, [facility] [address] [place] [id number] [place] [address] 76298- 8706 Nov, Onychomycosis B35.1 ; Hammertoe M20.40 ; [place] or callus L84 and DM neuro manif type II E11.49 [facility] [address] [place] [id number] [place] [address] 18049- 1541 Nov, Chronic pain G89.29 ; Leukocytosis D72.829 and Diabetes E11.9 [place] [address] 44545- 5356 Nov, [place] [address] 43690- 1372 Oct, Bronchitis J40 [place] [address] 35732- 1447 Oct, [place] [address] 56851- 0863 Oct, [place] [address] 03787- 1121 Oct, Mastoiditis, unspecified laterality H70.90 and Type 2 diabetes mellitus with complication E11.8 [place] [address] 54910- 1782 Sep, [place] [address] 27712- 5947 Sep, Dysuria R30.0 ; Cough R05 ; Benign prostatic hyperplasia with lower urinary tract symptoms, unspecified morphology N40.1 ; Hypokalemia E87.6 and Eustachian tube dysfunction, unspecified laterality H69.80 [place] [id number] [place] [address] 75763- 7146 Sep, Moderate mixed bipolar I disorder F31.62 [place] [address] [place] [id number] [place] [address] 44563- 9080 Sep, Hypokalemia E87.[address] 04604- 9158 Sep, [place] [address] [place] [id number] [place] [address] 08205- 5046 Sep, Upper respiratory tract infection, unspecified type J06.9 [facility] [address], [place] [address]- 4444 Aug, [facility] [address] [place] [id number] [place] [address] 14303- 8989 Aug, Dysuria R30.0 [facility] [address] [place] [id number] [place] [address] 07070- 3426 Aug, [facility] [address] [place] [id number] [place] [address] 83937- 9679 Jul, [facility] [address] [place] [id number] [place] [address] 69242- 2259 Jul, [facility] [address] [place] [id number] [place] [address] [phone] Jul, [facility] [id number] [place] [address] [phone] Jul, [facility] [id number] [place] [address] [phone] Jun, [facility] [id number] [place] [address] [phone] Jun, [facility] [id number] [place] [address] [phone]- [phone] Jun, [facility] [id number] [place] [address] [phone]- [phone] May, [facility] [id number] [place] [address] [phone]- [phone] May, Bipolar I disorder, most recent episode (or current) mixed, moderate 296.62 [facility] [id number] [place] [address] [phone] 16 May, 2015 [facility] [id number] [place] [address] [id number]- [phone] May, Bipolar I disorder, most recent episode (or current) mixed, moderate 296.62 and Major depressive disorder, recurrent episode, severe, specified as with psychotic behavior 296.34 [facility] [id number] [place] [address] [id number]- [phone] May, Bipolar I disorder, most recent episode (or current) mixed, moderate 296.62 [facility] [address] [id number] [place] [address] 07417- 7909 May, [facility] [id number] [place] [address] 35974- 6401 Apr, [facility] [id number] [place] [address] 12335- 2859 Apr, [facility] [id number] [place] [address] 98538- 3992 Apr, Unspecified disorder of kidney and ureter 593.9 and Diabetes mellitus type 2, uncontrolled 250.02 [facility] [id number] [place] [address] 89442- 4675 Apr, [facility] [id number] [place] [address] 59665- 1989 Apr, [facility] [id number] [place] [address] 17052- 3781 Apr, [facility] [id number] [place] [address] 52879- 6136 Apr, [facility] [id number] [place] [address] 76352- 1199 Apr, Diabetes mellitus type II, uncontrolled 250.02 [facility] [id number] [place] [address] 91472- 9660 Apr, [facility] [id number] [place] [address] 95177- 3102 Mar, [facility] [id number] [place] [address] 86540- 1784 Mar, [facility] [id number] [place] [address] 79009- 7561 Mar, [facility] [id number] [place] [address] 40316- 7909 Mar, Major depressive disorder, recurrent episode, severe, specified as with psychotic behavior 296.34 and Bipolar I disorder, most recent episode (or current) mixed, moderate 296.62 [facility] [id number] [place] [address] 32436- 4645 Mar, Diabetes 250.00 ; Anuria 788.5 ; Nausea and vomiting 787.01 and Diarrhea 787.91 [facility] [id number] [place] [address] 78212- 8257 Mar, Diabetes 250.00 [facility] [id number] [place] [address] 48819- 8846 Mar, [facility] [id number] [place] [address] 10343- 3388 Mar, Diabetes 250.00 [facility] [id number] [place] [address] 69402- 0753 Mar, [facility] [id number] [place] [address] 45590- 0997 Mar, [facility] [id number] [place] [address] 75840- 5611 Mar, [facility] [id number] [place] [address] 94659- 1963 Mar, [facility] [id number] [place] [address] 00322- 7524 Mar, Bipolar I disorder, most recent episode (or current) mixed, moderate 296.62 and Major depressive disorder, recurrent episode, severe, specified as with psychotic behavior 296.34 [facility] [id number] [place] [address] 74852- 1305 Mar, Magnesium deficiency 275.2 ; Hypokalemia 276.8 ; Nausea & vomiting 787.01 and Diabetes mellitus type 2, uncontrolled 250.02 [facility] [id number] [place] [address] 79425- 1590 Feb, [facility] [id number] [place] [address] 16021- 8530 Feb, Bipolar I disorder, most recent episode (or current) mixed, moderate 296.62 [facility] [id number] [place] [address] 08529- 7308 Feb, Nausea and vomiting 787.01 ; Left elbow pain 719.42 ; Anuria 788.5 and Diabetes 250.00 [facility] [id number] [place] [address] 23745- 4429 Feb, [facility] [id number] [place] [address] 00418- 2456 Feb, Hypopotassemia 276.8 and Hypokalemia 276.8 [facility] [id number] [place] [address] 15441- 4384 Feb, Hypopotassemia 276.8 and Hypokalemia 276.8 [facility] [id number] [place] [address] 83007- 2507 Feb, Seborrheic keratoses 702.19 [facility] [id number] [place] [address] 26382- 6774 Feb, Hypopotassemia 276.8 and Low magnesium levels 275.2 [facility] [id number] [place] [address] 10595- 8040 January, [facility] [id number] [place] [address] 90207- 6535 January, [facility] [id number] [place] [address] 80634- 8419 January, [facility] [id number] [place] [address] 47349- 8564 January, Scalp lesion 709.9 [facility] [id number] [place] [address] 41507- 8759 January, [facility] [address] [facility] [id number], [place] [address]- 4094 Dec, Tear of medial cartilage or meniscus of knee, current 836.0 and 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 [facility] [address] [facility] [id number] [place] [address]- 9031 Dec, [facility] [address] [facility] [id number], [place] [address]- 8754 Dec, [facility] [address] [facility] [id number], [place] [address]- 3880 Dec, Squamous cell carcinoma, 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 [facility] [id number] [place] [address] 605048- 8125 14 Dec, 2014 [facility] [address] [id number] [address]- 3033 Dec, [facility] [address], [place] [address]- 9710 Nov, [facility] [address] [id number] [address]- 6874 Nov, [facility] [address], [place] [address]- 2016 Nov, [facility] [address], [place] [address]- 9522 Nov, [facility] [address] [id number] 6260 Nov, [facility] [address] [id number] 1411 Nov, [facility] [address], [place] [address]- 0362 Nov, [facility] [address] [id number], [place] [address]- 6113 Nov, [facility] [id number] [place] [address]- 5319 Nov, 2014 [facility] [place] [facility] [address] [id number] [place] [address]- 3702 Nov, 2014 [facility] [place] [facility] [address] [id number] [place] [address]- 6862 Nov, 2014 [facility] [place] [facility] [address] [facility] [id number] [place] [address]- 3182 Nov, 2014 [facility] [place] [facility] [address] [id number] [place] [address]- 5879 Oct, 2014 [facility] [place] [facility] [address] [id number] [place] [address]- 9513 Oct, 2014 [facility] [place] [facility] [address] [facility] [id number] [place] [address]- 2868 Oct, 2014 [facility] [place] [facility] [address] [facility] [id number] [place] [address]- 4899 Oct, 2014 [facility] [place] [facility] [address] [facility] [id number] [place] [address]- 8300 Oct, 2014 [facility] [place] [facility] [address] [facility] [id number] [place] [address]- 1834 Oct, 2014 [facility] [place] [facility] [address] [facility] [id number] [place] [address]- 7818 Oct, 2014 [facility] [place] [facility] [address] [facility] [id number] [place] [address]- 4283 Oct, 2014 [facility] [place] [facility] [address] [facility] [id number] [place] [address]- 8978 Oct, [facility] [place] [facility] [address] [facility] [id number] [place] [address]- 9493 Sep, [facility] [place] [facility] [address] [facility] [id number] [place] [address]- 7950 Sep, [facility] [place] [facility] [address] [facility] [id number] [place] [address]- 3375 Sep, [facility] [place] [facility] [address] [id number] [place] [address]- 9063 Sep, [facility] [place] [facility] [address] [id number] [place] [address]- 4816 Sep, [facility] [place] [facility] [address] [id number] [place] [address]- 6613 Sep, [facility] [place] [facility] [address] [id number] [place] [address]- 8757 Sep, [facility] [place] [facility] [address] [id number] [place] [address]- 8662 Sep, [facility] [place] [facility] [address] [id number] [place] [address]- 4047 Sep, [facility] [place] [facility] [address] [id number] [place] [address]- 2247 Sep, [facility] [place] [facility] [address] [id number], [place] [address]- 7261 Sep, [facility] [place] [facility] [address] [id number] [place] [address]- 5269 Sep, [facility] [place] [facility] [address] [id number], [place] [address]- 8362 Sep, [facility] [place] [facility] [address] [id number], [place] [address]- 5756 Sep, [facility] [place] [facility] [address] [id number], [place] [address]- 8805 Sep, [facility] [place] [facility] [address] [id number], [place] [address]- 5105 Sep, [facility] [place] [facility] [address] [id number], [place] [address]- 0736 Aug, [facility] [place] [facility] [address] [id number] [place] [address]- 8396 Aug, [facility] [place] [facility] [address] [id number] [place] [address]- 5371 Aug, [facility] [address] [id number] [place] [address]- 0131 Aug, [facility] [address] [id number] [place] [address]- 2569 Aug, [facility] [address] [id number] [place] [address]- 4908 Aug, [facility] [address] [id number] [place] [address]- 0436 Aug, [facility] [address] [id number] [place] [address]- 1194 Aug, [facility] [address] [id number] [place] [address]- 1149 Aug, [facility] [address] [id number] [place] [address]- 5949 Aug, [facility] [address] [id number] [place] [address]- 7081 Aug, [facility] [address] [place] [id number] Aug, [facility] [address] [id number] [place] [address]- 5127 Aug, [facility] [address] [id number] [place] [address]- 7631 Aug, [facility] [address] [id number] [place] [address]- 8092 Aug, [facility] [address] [id number] [place] [address]- 0141 Aug, [facility] [address] [id number] [place] [address]- 6452 Aug, [facility] [address] [id number] [place] [address]- 1104 Aug, [facility] [place] [facility] [address] [id number] [place] [address]- 8391 Aug, [facility] [place] [facility] [address] [id number] [place] [address]- 8806 Aug, [facility] [place] [facility] [address] [id number] [place] [address]- 2357 Aug, [facility] [place] [facility] [address] [id number] [place] [address]- 4837 Aug, [facility] [place] [facility] [address] [id number] [place] [address]- 0320 Aug, [facility] [place] [facility] [address] [id number] [place] [address]- 9352 Aug, [facility] [place] [facility] [address] [id number] [place] [address]- 6738 Aug, [facility] [place] [facility] [address] [id number] [place] [address]- 9675 Aug, [facility] [place] [facility] [address] [id number] [place] [address]- 6533 Aug, [facility] [place] [facility] [address] [id number] [place] [address]- 3812 Aug, [facility] [place] [facility] [address] [id number] [place] [address]- 6208 Aug, [facility] [place] [facility] [address] [id number] [place] [address]- 2938 Aug, [facility] [place] [facility] [address] [id number] [place] [address]- 8057 Jul, [facility] [place] [facility] [address] [id number] [place] [address]- 5190 Jul, [facility] [place] [facility] [address] [id number] [place] [address]- 7667 Jul, [facility] [place] [facility] [address] [id number] [place] [address]- 9529 Jul, [facility] [place] [facility] [address] [id number] [place] [address]- 6038 Jul, [facility] [place] [facility] [address] [id number] [place] [address]- 4142 Jul, [facility] [place] [facility] [address] [id number] [place] [address]- 4961 Jul, [facility] [place] [facility] [address] [id number] [place] [address]- 3651 Jul, [facility] [place] [facility] [address] [id number] [place] [address]- 7608 Jul, [facility] [place] [facility] [address] [id number] [place] [address]- 5541 Jul, [facility] [place] [facility] [address] [id number] [place] [address]- 1498 Jun, [facility] [place] [facility] [address] [id number] [place] [address]- 9175 Jun, [facility] [place] [facility] [address] [id number] [place] [address]- 2856 Jun, [facility] [place] [facility] [address] [id number], [place] [address]- 6267 Jun, [facility] [place] [facility] [address] [id number], [place] [address]- 4842 Jun, [facility] [place] [facility] [address] [id number], [place] [address]- 1927 Jun, [facility] [place] [facility] [address] [id number] [place] [address]- 3952 Jun, [facility] [place] [facility] [address] [id number], [place] [address]- 3484 Jun, [facility] [place] [facility] [address] [id number] [place] [address]- 2835 Jun, [facility] [place] [facility] [address] [id number] [place] [address]- 4537 Jun, [facility] [place] [facility] [address] [id number] [place] [address] 2545 29 Sep, 2013 [facility] [place] [facility] [address] [id number] [place] [address] 2546 29 Sep, 2013 [facility] [place] [facility] [address] [id number] [place] [address] 2546 26 Sep, 2013 [facility] [place] [facility] [address] [id number] [place] [address]- 2547 26 Sep, 2013 [facility] [place] [facility] [address] [id number] [place] [address]- 9163 17 Sep, 2013 [facility] [place] [facility] [address] [id number] [place] [address]- 254 17 Sep, 2013 [facility] [place] [facility] [address] [id number] [place] [address]- 4325 15 Sep, 2013 [facility] [place] [facility] [address] [id number] [place] [address]- 2547 15 Sep, 2013 [facility] [place] [facility] [address] [id number] [place] [address] 2542 15 Sep, 2013 [facility] [place] [facility] [address] [id number] [place] [address]- 2543 15 Sep, 2013 [facility] [place] [facility] [address] [id number] [place] [address] 2541 10 Sep, 2013 [facility] [place] [facility] [address] [id number] [place] [address]- 2544 10 Sep, 2013 [facility] [place] [facility] [address] [id number] [place] [address] 2548 09 Sep, 2013 [facility] [place] [facility] [address] [id number] [place] [address]- 2546 09 Sep, 2013 [facility] [place] [facility] [address] [id number] [place] [address]- 2543 04 Sep, 2013 [facility] [place] [facility] [address] [id number] [place] [address]- 6050 May, [facility] [place] [facility] [address] [id number] [place] [address]- 6468 Apr, [facility] [place] [facility] [address] [id number] [place] [address]- 1852 Apr, [facility] [place] [facility] [address] [id number] [place] [address]- 7576 Apr, [facility] [place] [facility] [address] [id number] [place] [address]- 9163 Apr, [facility] [place] [facility] [address] [id number] [place] [address]- 6040 Apr, [facility] [place] [facility] [address] [id number] [place] [address]- 1906 Apr, [facility] [place] [facility] [address] [id number] [place] [address]- 6068 Apr, [facility] [place] [facility] [address] [id number] [place] [address]- 5027 Apr, [facility] [place] [facility] [address] [id number] [place] [address]- 7994 Apr, [facility] [place] [facility] [address] [id number] [place] [address]- 5405 Apr, [facility] [place] [facility] [address] [id number] [place] [address]- 8868 Apr, [facility] [place] [facility] [address] [id number] [place] [address]- 1698 Apr, [facility] [place] [facility] [address] [id number] [place] [address]- 5736 Apr, [facility] [place] [facility] [address] [id number] [place] [address]- 3619 Apr, [facility] [place] [facility] [address] [id number] [place] [address]- 6475 Apr, [facility] [place] [facility] [address] [id number] [place] [address]- 2145 Mar, [facility] [place] [facility] [address] [id number] [place] [address]- 2397 Mar, [facility] [place] [facility] [address] [id number] [place] [address]- 1422 Mar, [facility] [place] [facility] [address] [id number] [place] [address]- 5599 Mar, [facility] [place] [facility] [address] [id number] [place] [address]- 2222 Mar, [facility] [place] [facility] [address] [id number] [place] [address]- 1855 Mar, [facility] [place] [facility] [address] [id number] [place] [address]- 2071 Mar, [facility] [place] [facility] [address] [id number] [place] [address]- 7741 Mar, [facility] [place] [facility] [address] [id number] [place] [address]- 9499 Mar, [facility] [place] [facility] [address] [id number] [place] [address]- 8351 Mar, [facility] [place] [facility] [address] [id number] [place] [address]- 3364 Mar, [facility] [place] [facility] [address] [id number] [place] [address]- 8628 Mar, [facility] [place] [facility] [address] [id number] [place] [address]- 6152 Mar, [facility] [place] [facility] [address] [id number] [place] [address]- 8760 Mar, [facility] [place] [facility] [address] [id number] [place] [address]- 4250 Mar, [facility] [place] [facility] [address] [id number] [place] [address]- 8956 Mar, [facility] [place] [facility] [address] [id number] [place] [address]- 9380 Mar, [facility] [place] [facility] [address] [id number] [place] [address]- 0992 Mar, [facility] [place] [facility] [address] [id number] [place] [address]- 5955 Feb, [facility] [place] [facility] [address] [id number] [place] [address] Feb, [facility] [place] [facility] [address] [id number] [place] [address] Feb, [facility] [place] [facility] [address] [id number] [place] [address] Feb, [facility] [place] [facility] [address] [id number] [place] [address] Feb, [facility] [place] [facility] [address] [id number] [place] [address] Feb, [facility] [place] [facility] [address] [id number] [place] [address] Feb, [facility] [place] [facility] [address] [id number] [place] [address] Feb, [facility] [place] [facility] [address] [id number] [place] [address] Feb, [facility] [place] [facility] [address] [id number] [place] [address] Feb, [facility] [place] [facility] [address] [id number] [place] [address] Feb, [facility] [place] [facility] [address] [id number] [place] [address] Feb, [facility] [place] [facility] [address] [id number] [place] [address] Feb, [facility] [place] [facility] [address] [id number] [place] [address] Feb, [facility] [place] [facility] [address] [id number] [place] [address] January, [facility] [place] [facility] [address] [id number] [place] [address] January, [facility] [place] [facility] [address] [id number] [place] [address] January, [facility] [place] [facility] [address] [id number] [place] [address] January, [facility] [place] [facility] [address] [id number] [place] [address] January, [facility] [place] [facility] [address] [id number] [place] [address] January, [facility] [place] [facility] [address] [id number] [place] [address] January, [facility] [place] [facility] [address] [id number] [place] [address] January, [facility] [place] [facility] [address] [id number] [place] [address] January, [facility] [place] [facility] [address] [id number] [place] [address] January, [facility] [place] [facility] [address] [id number] [place] [address] January, [facility] [place] [facility] [address] [id number] [place] [address] January, [facility] [place] [facility] [address] [id number] [place] [address] January, [facility] [place] [facility] [address] [id number] [place] [address] January, [facility] [place] [facility] [address] [id number] [place] [address] Dec, [facility] [place] [facility] [address] [id number] [place] [address] Dec, [facility] [place] [facility] [address] [id number] [place] [address] Dec, [facility] [place] [facility] [address] [id number] [place] [address] Dec, [facility] [place] [facility] [address] [id number] [place] [address] Dec, [facility] [place] [facility] [address] [id number] [place] [address]- [address] Dec, [facility] [place] [facility] [address] [id number] [place] [address]- [address] Dec, [facility] [place] [facility] [address] [id number] [place] [address] Dec, [facility] [place] [facility] [address] [id number] [place] [address]- [address] Dec, [facility] [place] [facility] [address] [id number] [place] [address] Dec, [facility] [place] [facility] [address] [id number] [place] [address] Nov, [facility] [place] [facility] [address] [id number] [place] [address] Nov, [facility] [place] [facility] [address] [id number] [place] [address] Nov, [facility] [place] [facility] [address] [id number] [place] [address]- [address] Nov, [facility] [place] [facility] [address] [id number] [place] [address]- [address]65 Nov, [facility] [place] [facility] [address] [id number] [place] [address] Nov, [facility] [place] [facility] [address] [id number] [place] [address]- [address] Nov, [facility] [place] [facility] [address] [id number] [place] [address]- [address] Nov, [facility] [place] [facility] [address] [id number] [place] [address]- [address]99 Nov, [facility] [place] [facility] [address] [id number] [place] [address] Nov, [facility] [place] [facility] [address] [id number] [place] [address]- [address] Oct, [facility] [place] [facility] [address] [id number] [place] [address]- [address] Oct, [facility] [place] [facility] [address] [id number] [place] [address]- [address]69 Oct, [facility] [place] [facility] [address] [id number] [place] [address] Oct, [facility] [place] [facility] [address] [id number] [place] [address]- [address] Oct, [facility] [place] [facility] [address] [id number] [place] [address]- [address] Oct, [facility] [place] [facility] [address] [id number] [place] [address] 238[address] Oct, [facility] [place] [facility] [address] [id number] [place] [address] Oct, [facility] [place] [facility] [address] [id number] [place] [address] Oct, [facility] [place] [facility] [address] [id number] [place] [address] 265[address] Oct, [facility] [place] [facility] [address] [id number] [place] [address] Oct, [facility] [place] [facility] [address] [id number] [place] [address]- [address] 04 Oct, 2013 [facility] [place] [facility] [address] [id number] [place] [address] Oct, [facility] [place] [facility] [address] [id number] [place] [address] Oct, [facility] [place] [facility] [address] [id number] [place] [address] Sep, [facility] [place] [facility] [address] [id number] [place] [address] Sep, [facility] [place] [facility] [address] [id number] [place] [address] 5763 Sep, [facility] [place] [facility] [address] [id number] [place] [address] 15 Sep, 2013 [facility] [place] [facility] [address] [id number] [place] [address] 4051 Sep, [facility] [place] [facility] [address] [id number] [place] [address] 7395 Sep, [facility] [place] [facility] [address] [id number] [place] [address] 2717 Sep, [facility] [place] [facility] [address] [id number] [place] [address]25 Sep, [facility] [place] [facility] [address] [id number] [place] [address] 3531 Sep, [facility] [place] [facility] [address] [id number] [place] [address] 2740 Sep, [facility] [place] [facility] [address] [id number] [place] [address] 1294 Aug, [facility] [place] [facility] [address] [id number] [place] [address] 7841 Aug, [facility] [place] [facility] [address] [id number] [place] [address] 3906 Jul, [facility] [place] [facility] [address] [id number] [place] [address] 0268 Jul, [facility] [place] [facility] [address] [id number] [place] [address]- 5287 Jul, [facility] [place] [facility] [address] [id number] [place] [address]- 9001 Jul, [facility] [place] [facility] [address] [id number] [place] [address]- 9444 Jul, [facility] [place] [facility] [address] [id number] [place] [address]- 0593 Jul, [facility] [place] [facility] [address] [id number] [place] [address]- 6577 Jul, [facility] [place] [facility] [address] [id number] [place] [address]- 8692 Jul, [facility] [place] [facility] [address] [id number] [place] [address] 2814 Jul, [facility] [place] [facility] [address] [id number] [place] [address]- 7087 Jul, [facility] [place] [facility] [address] [id number] [place] [address]- 9784 Jul, [facility] [place] [facility] [address] [id number] [place] [address] 0662 Jul, [facility] [place] [facility] [address] [id number], [place] [address] Jul, [facility] [place] [facility] [address] [id number] [place] [address]- 6420 Jul, [facility] [place] [facility] [address] [id number] [place] [address] 3660 Jul, [facility] [place] [facility] [address] [id number] [place] [address]- 3495 Jul, [facility] [place] [facility] [address] [id number] [place] [address]- 2546 Jul, [facility] [place] [facility] [address] [id number] [place] [address]- 5020 Jul, [facility] [place] [facility] [address] [id number] [place] [address]- 1569 Jul, [facility] [place] [facility] [address] [id number] [place] [address]- 2096 Jun, 2012 [facility] [place] [facility] [address] [id number] [place] [address]- 6153 Jun, 2012 [facility] [place] [facility] [address] [id number] [place] [address]- 2493 Jun, 2012 [facility] [place] [facility] [address] [id number] [place] [address]- 2895 Jun, 2012 [facility] [place] [facility] [address] [id number] [place] [address]- 6564 Jun, 2012 [facility] [place] [facility] [address] [id number] [place] [address]- 8702 Jun, [facility] [place] [facility] [address] [id number] [place] [address] Jun, [facility] [place] [facility] [address] [id number] [place] [address]- 2642 Jun, [facility] [place] [facility] [address] [id number], [place] [address]- 4[address] Jun, [facility] [place] [facility] [address] [id number], [place] [address]- 7842 Jun, [facility] [place] [facility] [address] [id number] [place] [address]- 9234 Jun, [facility] [place] [facility] [address] [id number], [place] [address] 7340 May, [facility] [place] [facility] [address] [id number] [place] [address] 254 25 May, 2013 [facility] [place] [facility] [address] [id number] [place] [address]- 3871 19 May, 2012 [facility] [address] [id number] [place] [address]- 7959 17 May, 2012 [facility] [place] [facility] [address] [id number] [place] [address]- 2546 11 May, 2013 [facility] [address] [id number] [place] [address]- 1177 10 May, 2012 [facility] [address] [id number] [place] [address]- 6519 09 May, 2013 [facility] [address] [id number] [place] [address]- 7509 05 May, 2013 [facility] [address] [id number] [place] [address]- 3403 Apr, [facility] [address] [id number] [place] [address]- 0253 Apr, [facility] [address] [id number] [place] [address]- 2199 Apr, [facility] [place] [facility] [address] [id number] [place] [address]- 2201 Apr, [facility] [address] [id number] [place] [address]- 0963 Apr, [facility] [place] [facility] [address] [id number] [place] [address]- 1766 Mar, [facility] [place] [facility] [address] [id number] [place] [address]- 0669 Mar, [facility] [place] [facility] [address] [id number] [place] [address]- 2680 Mar, [facility] [place] [facility] [address] [id number] [place] [address]- 9305 Mar, [facility] [place] [facility] [address] [id number] [place] [address]- 2259 Mar, [facility] [address] [id number] [place] [address]- 5307 Mar, [facility] [place] [facility] [address] [id number] [place] [address]- 1451 Mar, [facility] [place] [facility] [address] [id number] [place] [address]- 8203 Mar, [facility] [place] [facility] [address] [id number] [place] [address]- 4851 Feb, [facility] [address] [id number] [place] [address]- 9113 Feb, [facility] [place] [facility] [address] [id number] [place] [address]- 0055 January, [facility] [place] [facility] [address] [id number] [place] [address]- 2386 January, [facility] [address] [id number] [place] [address]- 2889 Dec, [facility] [place] [facility] [address] [id number] [place] [address]- 7931 Dec, [facility] [place] [facility] [address] [id number] [place] [address]- 2127 Nov, [facility] [place] [facility] [address] [id number] [place] [address]- 7310 Nov, [facility] [place] [facility] [address] [id number] [place] [address]- 1370 Nov, [facility] [place] [facility] [address] [id number] [place] [address]- 1153 Nov, [facility] [place] [facility] [address] [id number] [place] [address]- 2073 Oct, [facility] [place] [facility] [address] [id number] [place] [address]- 5210 Oct, [facility] [place] [facility] [address] [id number] [place] [address]- 7024 26 Oct, 2012 [facility] [address] [id number] [place] [address] 2546 26 Oct, 2012 [facility] [place] [facility] [address] [id number] [place] [address] 2546 16 Oct, 2012 [facility] [address] [id number] [place] [address] 2546 14 Oct, 2012 [facility] [address] [id number] [place] [address] 2545 08 Oct, 2012 [facility] [address] [id number] [place] [address]- 8652 07 Oct, 2012 [facility] [address] [id number] [place] [address] 2544 03 Oct, 2012 [facility] [address] [id number] [place] [address]- 0139 30 Sep, 2012 [facility] [address] [id number] [place] [address]- 9807 29 Sep, 2012 [facility] [address] [id number] [place] [address]- 1174 Sep, [facility] [address] [id number] [place] [address]- 7776 Sep, [facility] [address] [id number] [place] [address] 2549 17 Sep, 2012 [facility] [address] [id number] [place] [address] 254 Sep, [facility] [place] [facility] [address] [id number] [place] [address] 2547 09 Sep, 2012 [facility] [place] [facility] [address] [id number] [place] [address] 2546 08 Sep, 2012 [facility] [place] [facility] [address] [id number] [place] [address]- 6415 Aug, [facility] [place] [facility] [address] [id number] [place] [address]- 5931 Aug, [facility] [place] [facility] [address] [id number] [place] [address]- 5865 Aug, [facility] [place] [facility] [address] [id number] [place] [address]- 3579 Aug, [facility] [place] [facility] [address] [id number] [place] [address]- 1903 Aug, [facility] [place] [facility] [address] [id number] [place] [address]- 6305 Aug, [facility] [place] [facility] [address] [id number] [place] [address]- 0855 Aug, [facility] [place] [facility] [address] [id number] [place] [address]- 2998 Aug, [facility] [place] [facility] [address] [id number] [place] [address]- 7197 Jul, [facility] [place] [facility] [address] [id number] [place] [address]- 7768 Jul, [facility] [place] [facility] [address] [id number] [place] [address]- 1079 Jul, [facility] [place] [facility] [address] [id number] [place] [address]- 2101 Jul, [facility] [place] [facility] [address] [id number], [place] [address]- 9295 Jul, [facility] [place] [facility] [address] [id number] [place] [address]- 1761 Jul, [facility] [place] [facility] [address] [id number] [place] [address]- 9099 Jun, [facility] [place] [facility] [address] [id number] [place] [address]- 5763 Jun, [facility] [place] [facility] [address] [id number] [place] [address]- 2829 23 Jun, 2012 [facility] [place] [facility] [address] [id number] [place] [address]- 2891 23 Jun, 2012 [facility] [place] [facility] [address] [id number] [place] [address]- 4523 22 Jun, 2012 [facility] [place] [facility] [address] [id number] [place] [address]- 5336 19 Jun, 2012 [facility] [place] [facility] [address] [id number] [place] [address]- 8160 19 Jun, 2012 [facility] [place] [facility] [address] [id number] [place] [address]- 1723 10 Jun, 2012 [facility] [place] [facility] [address] [id number] [place] [address]- 7729 10 Jun, 2012 [facility] [place] [facility] [address] [id number] [place] [address]- 7291 26 May, 2012 [facility] [place] [facility] [address] [id number] [place] [address]- 4408 24 May, 2012 [facility] [place] [facility] [address] [id number] [place] [address]- 4721 18 May, 2012 [facility] [place] [facility] [address] [id number] [place] [address]- 7350 30 Apr, 2012 [facility] [place] [facility] [address] [id number] [place] [address]- 6341 29 Apr, 2012 [facility] [place] [facility] [address] [id number], [place] [address]- 1408 18 Apr, 2012 [facility] [place] [facility] [address] [id number] [place] [address]- 8633 14 Apr, 2012 [facility] [place] [facility] [address] [id number] [place] [address]- 6020 10 Apr, 2012 [facility] [place] [facility] [address] [id number] [place] [address]- 3854 07 Apr, 2012 [facility] [place] [facility] [address] [id number] [place] [address]- 4888 Mar, [facility] [place] [facility] [address] [id number] [place] [address]- 1686 Mar, [facility] [place] [facility] [address] [id number] [place] [address] 2546 Mar, [facility] [place] [facility] [address] [id number] [place] [address]- 1586 Mar, [facility] [place] [facility] [address] [id number] [place] [address]- 1195 Feb, [facility] [place] [facility] [address] [id number] [place] [address]- 9416 Feb, [facility] [place] [facility] [address] [id number] [place] [address]- 6123 Feb, [facility] [place] [facility] [address] [id number] [place] [address]- 2038 Feb, [facility] [place] [facility] [address] [id number] [place] [address]- 7334 Feb, [facility] [place] [facility] [address] [id number] [place] [address]- 6884 January, [facility] [place] [facility] [address] [id number] [place] [address]- 0207 January, [facility] [place] [facility] [address] [id number] [place] [address]- 1184 January, [facility] [place] [facility] [address] [id number] [place] [address]- 6123 January, [facility] [place] [facility] [address] [id number] [place] [address]- 4746 January, [facility] [place] [facility] [address] [id number] [place] [address]- 6566 January, [facility] [place] [facility] [address] [id number] [place] [address]- 9462 Dec, 2011 [facility] [place] [facility] [address] [id number] [place] [address]- 7945 24 Dec, 2011 [facility] [place] [facility] [address] [id number] [place] [address]- 0436 17 Dec, 2011 [facility] [place] [facility] [address] [id number] [place] [address]- 4996 09 Dec, 2011 [facility] [place] [facility] [address] [id number] [place] [address]- 4054 06 Dec, 2011 [facility] [place] [facility] [address] [id number] [place] [address]- 8783 27 Nov, 2011 [facility] [place] [facility] [address] [id number] [place] [address]- 8146 14 Nov, 2011 [facility] [place] [facility] [address] [id number] [place] [address]- 8118 Nov, [facility] [place] [facility] [address] [id number] [place] [address]- 1810 Nov, [facility] [place] [facility] [address] [id number] [place] [address]- 5438 29 Oct, 2011 [facility] [place] [facility] [address] [id number] [place] [address]- 6388 28 Oct, 2011 [facility] [place] [facility] [address] [id number] [place] [address]- 0603 24 Oct, 2011 [facility] [place] [facility] [address] [id number] [place] [address]- 4303 13 Oct, 2011 [facility] [place] [facility] [address] [id number] [place] [address]- 7090 08 Oct, 2011 [facility] [place] [facility] [address] [id number] [place] [address]- 2089 31 Sep, 2011 [facility] [place] [facility] [address] [id number] [place] [address]- 6709 30 Sep, 2011 [facility] [place] [facility] [address] [id number] [place] [address]- 2974 Sep, [facility] [place] [facility] [address] [id number] [place] [address]- 9789 Sep, [facility] [place] [facility] [address] [id number] [place] [address]- 9550 Sep, [facility] [place] [facility] [address] [id number] [place] [address]- 8417 Sep, [facility] [place] [facility] [address] [id number] [place] [address]- 4011 Aug, [facility] [place] [facility] [address] [id number] [place] [address]- 8034 Aug, [facility] [place] [facility] [address] [id number] [place] [address]- 8761 Aug, [facility] [place] [facility] [address] [id number] [place] [address]- 2823 Jul, [facility] [place] [facility] [address] [id number] [place] [address]- 9095 Jul, [facility] [place] [facility] [address] [id number] [place] [address]- 1678 Jul, [facility] [place] [facility] [address] [id number] [place] [address]- 8896 Jul, [facility] [place] [facility] [address] [id number] [place] [address]- 2631 Jun, [facility] [place] [facility] [address] [id number] [place] [address]- 7356 Jun, [facility] [place] [facility] [address] [id number] [place] [address]- 8262 Jun, [facility] [place] [facility] [address] [id number] [place] [address]- 9069 Jun, [facility] [place] [facility] [address] [id number] [place] [address]- 9141 Jun, [facility] [address] [id number] [place] [address]- 4597 10 Jun, 2011 [facility] [place] [facility] [address] [id number] [place] [address]- 3094 11 Mar, 2011 [facility] [place] [facility] [address] [id number] [place] [address]- 2473 18 Dec, 2010 [facility] [place] [facility] [address] [id number] [place] [address]- 8739 11 Dec, 2010 [facility] [place] [facility] [address] [id number] [place] [address]- 6117 18 Nov, 2010 [facility] [place] [facility] [address] [id number] [place] [address]- 8758 16 Nov, 2010 [facility] [place] [facility] [address] [id number] [place] [address]- 0965 10 Sep, 2010 [facility] [place] [facility] [address] [id number] [place] [address]- 2048 31 Aug, 2010 [facility] [place] [facility] [address] [id number] [place] [address]- 1069 29 Aug, 2010 [facility] [place] [facility] [address] [id number] [place] [address]- 3075 29 Aug, 2010 [facility] [place] [facility] [address] [id number] [place] [address]- 1963 29 Aug, 2010 [facility] [place] [facility] [address] [id number] [place] [address]- 5973 27 Aug, 2010 [facility] [place] [facility] [address] [id number] [place] [address]- 8161 14 Aug, 2010 [facility] [place] [facility] [address] [id number] [place] [address]- 3005 08 Aug, 2010 [facility] [place] [facility] [address] [id number] [place] [address]- 8707 08 Aug, 2010 [facility] [place] [facility] [address] [id number] [place] 7159 07 Aug, 2010 [facility] [place] [facility] [address] [id number] [place] [address]- 3806 06 Aug, 2010 [facility] [place] [facility] [address] [id number] [place] [address] Aug, [facility] [place] [facility] [address] [facility] [id number] [place] [address] Aug, [facility] [place] [facility] [address] [id number] [place] [address] Jul, [facility] [place] [facility] [address] [id number] [place] [address] Jul, [facility] [place] [facility] [address] [id number] [place] [address] Jul, [facility] [place] [facility] [address] [facility] [id number] [place] [address] Jul, [facility] [place] [facility] [address] [id number] [place] [address] Jul, [facility] [place] [facility] [address] [id number] [place] [address] Jul, [facility] [place] [facility] [address] [facility] [id number] [place] [address] 24 Jun, 2010 [facility] [place] [facility] [address] [id number] [place] [address] Jun, [facility] [place] [facility] [address] [id number], [place] [address] Jun, [facility] [place] [facility] [address] [id number] [place] [address] Jun, [facility] [place] [facility] [address] [facility] [id number] [place] [address] 16 Apr, 2010 [facility] [place] [facility] [address] [facility] [id number], [place] [address] Mar, [facility] [place] [facility] [address] [id number] [place] [address] 17 Feb, 2010 [facility] [place] [facility] [address] [id number] [place] [address] January, [facility] [place] [facility] [address] [id number] [place] [address] 15 Dec, 2009 [facility] [place] [facility] [address] [id number] [place] [address] Nov, [facility] [place] [facility] [address] [id number] [place] [address] Aug, [facility] [place] [facility] [address] [id number] [place] [address] Aug, [facility] [place] [facility] [address] [id number] [place] [address] Aug, [facility] [place] [facility] [address] [id number] [place] [address] Jul, [facility] [place] [facility] [address] [id number] [place] [address] Jul, [facility] [place] [facility] [address] [id number] [place] [address] Jul, [facility] [place] [facility] [address] [facility] [id number] [place] [address] 30 Jun, 2009 [facility] [place] [facility] [address] [id number], [place] [address] 29 Jun, 2009 [facility] [place] [facility] [address] [id number] [place] [address] Jun, [facility] [place] [facility] [address] [id number] [place] [address] 22 Jun, 2009 [facility] [place] [facility] [address] [id number] [place] [address]- [address] 12 Jun, 2009 [facility] [place] [facility] [address] [id number], [place] [address] Jun, [facility] [address] [facility] [id number] [place] [address] Apr, [facility] [address] [facility] [id number], [place] [address] Apr, [facility] [address] [facility] [id number], [place] [address] Feb, [facility] [address] [facility] [id number], [place] [address] January, [facility] [address] [facility] [id number], [place] [address] Dec, IMMUNIZATIONS No Known Immunizations SOCIAL HISTORY Never Assessed REASON FOR VISIT BH f/u, Depression and irritability. PLAN OF CARE Activity Details Follow Up 2 Weeks Reason:depression VITAL SIGNS MEDICATIONS Unknown Medications RESULTS No Results PROCEDURES Procedure Date Ordered Result Body Site [facility] VISIT MENTAL HEALTH ESTAB PT Jul 10, 2017 Psychotherapy, patient &/family, 45 minutes, established patient Jul 10, 2017 INSTRUCTIONS MEDICATIONS ADMINISTERED No Known [...] to urinate 09/16/15 Hospitalization History [facility] early Hospitalization History hyperkalemia 10/2017 Hospitalization History fluid in lung
--- OUTSIDE RECORDS SUMMARY | 2018-08-08 14:36 | XMS REPORT ---
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 Name Role Phone ROSELINE LUIS Unavailable PROBLEMS Type Condition ICD9-CM Code MRV01-DU Code Onset Dates Condition Status SNOMED Code Problem Chronic lymphocytic leukemia C91.10 Active 84870999 Problem Insomnia, unspecified type G47.00 Active 243662431 Problem Lymphocytosis D72.820 Active 62487925 Problem Anxiety F41.9 Active 46315404 Problem Eye exam abnormal R93.8 Active 971313437 Problem Morbid obesity E66.01 Active 205807634 Problem Diabetic polyneuropathy associated with type 2 diabetes mellitus E11.42 Active 21774833 Problem Essential hypertension I10 Active 67585973 Problem Falling R29.6 Active 127310710 Problem 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 Active 139565041 Problem Cough R05 Active 66454909 Problem Dysuria R30.0 Active 85893574 Problem Eustachian tube dysfunction, unspecified laterality H69.80 Active 70822226 Problem Bilateral primary osteoarthritis of knee M17.0 Active 351316260 Problem Polyneuropathy associated with underlying disease G63 Active 289679228 Problem Anemia of chronic illness D63.8 Active 862731850 Problem Retinal edema H35.81 Active 1526177 Problem DM neuro manif type II E11.49 Active 90252995 Problem Diabetes E11.9 Active 81267977 Problem Hypokalemia E87.6 Active 46368019 Problem Benign prostatic hyperplasia with lower urinary tract symptoms, unspecified morphology N40.1 Active 652274160 Problem Reactive airway disease J45.909 Active 446947413879 Problem Bipolar I disorder, most recent episode (or current) mixed, moderate F31.62 Active 38130783 Problem Chronic pain G89.29 Active 56320530 Problem Leukocytosis D72.829 Active 726537248 ALLERGIES No Information ENCOUNTERS Encounter Location Date Diagnosis [facility] [address] [address] Apr, [facility] [address] [address] 2414 Apr, [facility] [address] [address] 46[address] Mar, [facility] [address] [address] 8523 Mar, [facility] [id number] [place] [address] 74752- 2313 Mar, [facility] [id number] [place] [address] 70742- 7574 Mar, Bipolar I disorder, most recent episode (or current) mixed, moderate F31.62 [facility] [address] [address] Feb, Bipolar I disorder, most recent episode (or current) mixed, moderate F31.62 [facility] [address] [address] Feb, Chronic pain G89.29 [facility] [id number] [place] [address] 17472- 2829 Feb, Decubitus ulcer of right foot, stage 3 L89.893 and BMI 50.0- 59.9, adult Z68.43 [facility] [address] [address] 150[address] Feb, Bipolar I disorder, most recent episode (or current) mixed, moderate F31.62 [facility] [address] [address] 2519 Feb, [facility] [address] [address]- 63[address] January, [facility] [address] [address] 3090 January, Chronic pain G89.29 [facility] [id number] [place] [address] 88030- 1920 January, Bipolar I disorder, most recent episode (or current) mixed, moderate F31.62 [facility] [address] [address] [id number] [place] [address] 13331- 3628 January, Bipolar I disorder, most recent episode (or current) mixed, moderate F31.62 [facility] [address] [id number] [place] [address] 03851- 8523 Dec, Bipolar I disorder, most recent episode (or current) mixed, moderate F31.62 and BMI 50.0-59.9, adult Z68.43 [facility] [id number] [place] [address] 99832- 0119 Dec, Bipolar I disorder, most recent episode (or current) mixed, moderate F31.62 [facility] [id number] [place] [address] 06718- 4598 Dec, Chronic pain G89.29 [facility] [id number] [place] [address] 93299- 7760 Dec, DM neuro manif type II E11.49 ; Right flank pain R10.9 ; 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 ; Encounter for medication monitoring Z51.81 and BMI 50.0-59.9, adult Z68.43 [facility] [id number] [place] [address] 35077- 7339 Dec, Bipolar I disorder, most recent episode (or current) mixed, moderate F31.62 [facility] [id number] [place] [address] 16987- 3822 Nov, Bipolar I disorder, most recent episode (or current) mixed, moderate F31.62 [facility] [id number] [place] [address] 38980- 9304 Nov, Chronic pain G89.29 [facility] [id number] [place] [address] 49258- 5997 Nov, Bipolar I disorder, most recent episode (or current) mixed, moderate F31.62 [facility] [id number] [place] [address] [address] Nov, Hypokalemia E87.6 [facility] [id number] [place] [address] 522811- 9267 Nov, Bipolar I disorder, most recent episode (or current) mixed, moderate F31.62 [facility] [id number] [place] [address] 28931- 8051 Oct, Chronic pain G89.29 [facility] [address] 115390- 1759 Oct, BMI 50.0-59.9, adult Z68.43 and Bipolar I disorder, most recent episode (or current) mixed, moderate F31.62 [facility] [id number] [place] [address] 053461- 2168 Oct, Bipolar I disorder, most recent episode (or current) mixed, moderate F31.62 [facility] [id number] [place] [address] 88811- 1391 Oct, [facility] [id number] [place] [address] 13227- 1238 Oct, Hypokalemia E87.6 [facility] [id number] [place] [address] 58818- 5939 Oct, DM neuro manif type II E11.49 [facility] [id number] [place] [address] 04268- 8270 Oct, Bipolar I disorder, most recent episode (or current) mixed, moderate F31.62 [facility] [id number] [place] [address] 09060- 2186 Oct, Bipolar I disorder, most recent episode (or current) mixed, moderate F31.62 [facility] [place] [id number] [place] [address] 31078- 1790 14 Oct, 2017 Hyperkalemia E87.5 ; Falling R29.6 ; BMI 50.0-59.9, adult Z68.43 and Acute left ankle pain M25.[address] [address]47- 0626 08 Oct, 2017 DM neuro manif type II E11.[address] 69196- 5536 Oct, [address] 16870- 7446 Sep, Chronic pain G89.[address] 37342- 9790 Sep, [address] 25450- 3958 Sep, Bilateral primary osteoarthritis of knee M17.[address] 45467- 9770 Sep, Generalized edema R60.[address] 80411- 6706 Sep, Bipolar I disorder, most recent episode (or current) mixed, moderate F31.[address] 07836- 0547 15 Sep, 2017 Hypoxia R09.02 ; Other hypervolemia E87.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 ; Anemia of chronic illness D63.8 and BMI 50.0- 59.9, adult Z68.43 [place] [id number] [place] [address] 33828- 0858 Sep, [address] 70975- 2425 Sep, Bipolar I disorder, most recent episode (or current) mixed, moderate F31.62 [facility] [id number] [place] [address] 99002- 6733 Aug, Chronic pain G89.29 [facility] [id number] [place] [address] 96203- 0039 Aug, Generalized edema R60.1 [facility] [address] [id number] [place] [address] 72713- 0304 Aug, [facility] [id number] [place] [address] 81958- 5069 Aug, [facility] [address] [address] [id number] [place] [address] 939990- 4119 Aug, Bipolar I disorder, most recent episode (or current) mixed, moderate F31.62 [facility] [id number] [place] [address] 33807- 2623 Aug, Bipolar I disorder, most recent episode (or current) mixed, moderate F31.62 [facility] [address] [id number] [place] [address] 79631- 9166 Aug, Chronic pain G89.29 [facility] [address] [address] [id number] [place] [address] 42926- 8611 Jul, Bipolar I disorder, most recent episode (or current) mixed, moderate F31.62 [facility] [id number] [place] [address] 82499- 0428 Jul, Bipolar I disorder, most recent episode (or current) mixed, moderate F31.62 and BMI 60.0-69.9, adult Z68.44 [facility] [id number] [place] [address] 81426- 9730 16 Jul, 2017 Bipolar I disorder, most recent episode (or current) mixed, moderate F31.62 [facility] [id number] [place] [address] 12334- 8245 Jul, Chronic pain G89.29 [facility] [address] [address]- 6720 Jul, Bipolar I disorder, most recent episode (or current) mixed, moderate F31.62 [facility] [id number] [place] [address] 59304- 9048 18 Jun, 2017 Polyneuropathy associated with underlying disease G63 and Diabetes E11.9 [facility] [id number] [place] [address] 35969- 0093 16 Jun, 2017 Bipolar I disorder, most recent episode (or current) mixed, moderate F31.62 [facility] [address] [id number] [place] [address] 17669- 1032 Jun, Chronic pain G89.29 [facility] [id number] [place] [address] 45196- 1022 27 May, 2017 Bipolar I disorder, most recent episode (or current) mixed, moderate F31.62 [facility] [id number] [place] [address] 44688- 7507 21 May, 2017 Bipolar I disorder, most recent episode (or current) mixed, moderate F31.62 [facility] [address] [address] [id number] [place] [address] 54724- 9438 20 May, 2017 Diabetic polyneuropathy associated with type 2 diabetes mellitus E11.42 [facility] [id number] [place] [address] 40807- 5722 18 May, 2017 Bipolar I disorder, most recent episode (or current) mixed, moderate F31.62 [facility] [address] [address]- 7304 13 May, 2017 Bipolar I disorder, most recent episode (or current) mixed, moderate F31.62 [facility] [address] [address]- 1265 12 May, 2017 Chronic pain G89.29 [facility] [id number] [place] [address] 17663- 8727 Apr, Bipolar I disorder, most recent episode (or current) mixed, moderate F31.62 [facility] [id number] [place] [address] 13840- 1343 Apr, [facility] [id number] [place] [address] [address]841 Apr, Chronic pain G89.29 and DM neuro manif type II E11.49 [facility] [address] 34421- 1065 Apr, [facility] [id number] [place] [address] 548763- 4177 Apr, Bipolar I disorder, most recent episode (or current) mixed, moderate F31.62 [facility] [id number] [place] [address] 41434- 5664 Apr, Chronic pain G89.29 [facility] [address] 023423- 4675 Apr, Iliotibial band syndrome, left M76.32 [facility] [id number] [place] [address] 14476- 9418 Apr, Bipolar I disorder, most recent episode (or current) mixed, moderate F31.62 [facility] [address] [address] [id number] [place] [address] 74752- 0743 Mar, Bipolar I disorder, most recent episode (or current) mixed, moderate F31.62 [facility] [id number] [place] [address] 66670- 2558 Mar, Bipolar I disorder, most recent episode (or current) mixed, moderate F31.62 [facility] [address] [address] [id number] [place] [address] 86539- 6967 Mar, [facility] [address] [id number] [place] [address] 07111- 4847 Mar, Bipolar I disorder, most recent episode (or current) mixed, moderate F31.62 [facility] [address] [address]- 5472 Mar, Chronic pain G89.29 [facility] [address] [id number] [place] [address] 32896- 9285 Mar, Bipolar I disorder, most recent episode (or current) mixed, moderate F31.62 [facility] [address] [address]- 8800 Mar, Bipolar I disorder, most recent episode (or current) mixed, moderate F31.62 [facility] [address] [place] [address] 42693- 7805 Mar, Acute pain of left knee M25.562 ; Left hip pain M25.552 ; Generalized edema R60.1 and Tongue swelling R22.0 [facility] [address] [address]- 0489 Mar, [facility] [address] [address] [id number] [place] [address] 78971- 3907 Feb, Chronic pain G89.29 [facility] [address] [id number] [place] [address] 56696- 9567 Feb, Diabetes E11.9 [facility] [address] [address]- 1340 January, Chronic pain G89.29 [facility] [address] [address]- 3059 January, [facility] [id number] [place] [address] 19030- 6208 January, Bipolar I disorder, most recent episode (or current) mixed, moderate F31.62 [facility] [address] [address]- 8755 Dec, Bipolar I disorder, most recent episode (or current) mixed, moderate F31.62 [facility] [address] [address]- 4119 Dec, Chronic pain G89.29 [facility] [address] [address]- 0736 Dec, Bipolar I disorder, most recent episode (or current) mixed, moderate F31.62 [facility] [id number] [place] [address] 67507- 0201 Dec, Diabetes E11.9 ; Essential hypertension I10 ; Chronic pain G89.29 and Morbid obesity E66.01 [facility] [id number] [place] [address] 10743- 5755 Dec, [facility] [address] [id number] [place] [address] 23142- 7963 Dec, Bipolar I disorder, most recent episode (or current) mixed, moderate F31.62 [facility] [id number] [place] [address] 68137- 8502 Dec, Bipolar I disorder, most recent episode (or current) mixed, moderate F31.62 [facility] [id number] [place] [address] 15389- 1905 Nov, Chronic pain G89.29 [facility] [address] [place] [id number] [place] [address] 08280- 7351 Nov, Bipolar I disorder, most recent episode (or current) mixed, moderate F31.62 [facility] [address] [address]- 1729 Nov, [facility] [id number] [place] [address] 79918- 7307 Nov, Bipolar I disorder, most recent episode (or current) mixed, moderate F31.62 [facility] [address] [id number] [place] [address] 84980- 0413 Nov, Bipolar I disorder, most recent episode (or current) mixed, moderate F31.62 [facility] [id number] [place] [address] 51178- 9332 Nov, [facility] [address] [address]- 8308 Nov, [facility] [id number] [place] [address] 42412- 4998 Nov, [facility] [id number] [place] [address] 23782- 3694 Oct, Chronic pain G89.29 [facility] [id number] [place] [address] 85853- 0726 Oct, Bipolar I disorder, most recent episode (or current) mixed, moderate F31.62 [facility] [id number] [place] [address] 91585- 8591 Oct, [facility] [id number] [place] [address] 45800- 2489 Oct, Chronic pain G89.29 ; Diabetes E11.9 ; Anxiety F41.9 and 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 [facility] [address] [address]- 2254 Oct, [facility] [id number] [place] [address] 21668- 6106 Oct, Diabetes E11.9 [facility] [address] [address]- 5367 Oct, Bipolar I disorder, most recent episode (or current) mixed, moderate F31.62 [facility] [address] [address]- 4809 Sep, Chronic pain G89.29 [facility] [id number] [place] [address] 55152- 1161 Sep, Chronic pain G89.29 [facility] [address] [address]- 8620 Aug, Chronic pain G89.29 [facility] [id number] [place] [address] 40472- 8237 Jul, [facility] [address] [place] [address] [id number] [place] [address] 54815- 0412 Jul, Diabetes E11.9 [facility] [address] [address] [id number] [place] [address] 41395- 0761 Jul, Chronic pain G89.29 [place] [facility] [id number] [place] [address] 27570- 4283 Jul, Bipolar I disorder, most recent episode (or current) mixed, moderate F31.62 [place] [facility] [address] [address] [id number] [place] [address] 262339- 1943 Jun, Bipolar I disorder, most recent episode (or current) mixed, moderate F31.62 [place] [address] [address] [id number] [place] [address] 76049- 4447 Jun, [place] [address] [id number] [place] [address] 84214- 2863 Jun, Bipolar I disorder, most recent episode (or current) mixed, moderate F31.62 [place] [facility] [id number] [place] [address] 61510- 0344 30 May, 2016 Insomnia, unspecified type G47.00 [place] [facility] [id number] [place] [address] 84086- 2068 May, Bipolar I disorder, most recent episode (or current) mixed, moderate F31.62 [place] [facility] [address] [id number] [place] [address] 89670- 6305 14 May, 2016 [place] [facility] [address] [id number] [place] [address] 29961- 4561 08 May, 2016 Bipolar I disorder, most recent episode (or current) mixed, moderate F31.62 [place] [facility] [id number] [place] [address] 42219- 8698 06 May, 2016 Diabetes E11.9 and Essential hypertension I10 [place] [address] [address] [id number] [place] [address] 90212- 4530 Apr, Chronic pain G89.29 [facility] [id number] [place] [address] 85277- 3926 Apr, Bipolar I disorder, most recent episode (or current) mixed, moderate F31.62 [place] [address] [id number] [place] [address] 78271- 3551 Apr, [facility] [id number] [place] [address] 97647- 6215 Apr, [place] [facility] [address] [address] [id number] [place] [address] 03297- 4251 Mar, Chronic pain G89.29 ; Headache, unspecified headache type R51 ; Neuropathy G62.9 ; Pain of right hip joint M25.551 and Essential hypertension I10 [place] [id number] [place] [address] 27632- 5781 Mar, Chronic pain G89.29 [place] [facility] [address] [address] [id number] [place] [address] 99167- 4599 Mar, Bipolar I disorder, most recent episode (or current) mixed, moderate F31.62 [place] [address] [id number] [place] [address] 14868- 6530 Feb, Bipolar I disorder, most recent episode (or current) mixed, moderate F31.62 and Insomnia, unspecified type G47.00 [place] [id number] [place] [address] 27978- 9168 Feb, Chronic pain G89.29 [place] [address] [id number] [place] [address] 46502- 7885 Feb, Bipolar I disorder, most recent episode (or current) mixed, moderate F31.62 [place] [address] [address] [id number] [place] [address] 93442- 1258 January, Bipolar I disorder, most recent episode (or current) mixed, moderate F31.62 [place] [address] [place] [id number] [place] [address] 09529- 7606 January, Chronic pain G89.29 [facility] [address] 04061- 2257 January, Chronic pain G89.29 and Essential hypertension I10 [facility] [address] 67767- 0206 January, Bipolar I disorder, most recent episode (or current) mixed, moderate F31.62 [facility] [id number] [place] [address] 61326- 8364 Dec, [facility] [address] 77917- 2034 Dec, [facility] [id number] [place] [address] 07423- 9577 Dec, [facility] [id number] [place] [address] 58017- 7429 Dec, [facility] [id number] [place] [address] 31442- 4484 Nov, Reactive airway disease J45.909 [facility] [id number] [place] [address] 63061- 4189 Nov, [facility] [id number] [place] [address] 82313- 3661 Nov, [facility] [id number] [place] [address] 67237- 0090 Nov, [facility] [id number] [place] [address] 93145- 9631 Nov, [facility] [address] [address] Nov, Onychomycosis B35.1 ; [place] M20.40 ; [place] or callus L84 and DM neuro manif type II E11.49 [facility] [address] [place] [address] Nov, Chronic pain G89.29 ; Leukocytosis D72.829 and Diabetes E11.9 [place] [id number] [place] [address] 69792- 9605 Nov, [facility] [address] [address] Oct, Bronchitis J40 [place] [address] [address]- [address] Oct, [facility] [address] [address]- [address] Oct, [place] [address] [address]- [address] Oct, Mastoiditis, unspecified laterality H70.90 and Type 2 diabetes mellitus with complication E11.8 [place] [address] [address]- [address] Sep, [facility] [id number] [place] [address] 72600- 6477 Sep, Dysuria R30.0 ; Cough R05 ; Benign prostatic hyperplasia with lower urinary tract symptoms, unspecified morphology N40.1 ; Hypokalemia E87.6 and Eustachian tube dysfunction, unspecified laterality H69.80 [facility] [id number] [place] [address] 92618- 3023 Sep, Moderate mixed bipolar I disorder F31.62 [facility] [id number] [place] [address] 85274- 1483 Sep, Hypokalemia E87.6 [facility] [facility] [address] 10591- 2879 Sep, [facility] [id number] [place] [address] 30580- 1144 Sep, Upper respiratory tract infection, unspecified type J06.9 [facility] [address] [address] 0388 Aug, [facility] [id number] [place] [address] 71518- 8374 Aug, Dysuria R30.0 [facility] [id number] [place] [address] 83869- 3985 Aug, [facility] [id number] [place] [address] 65027- 1225 Jul, [facility] [id number] [place] [address] 95165- 8719 Jul, [facility] [id number] [place] [address] 02761- 1659 Jul, [facility] [id number] [place] [address] 41423- 0195 Jul, [facility] [id number] [place] [address] 48523- 8040 Jun, [facility] [address] [address]- 2407 Jun, [facility] [address] [address]- 2552 Jun, [facility] [address] [address]- 6130 May, [facility] [address] [address]- 8360 May, Bipolar I disorder, most recent episode (or current) mixed, moderate 296.62 [facility] [id number] [place] [address] 82365- 0484 16 May, 2015 [facility] [address] [address]- 5456 May, Bipolar I disorder, most recent episode (or current) mixed, moderate 296.62 and Major depressive disorder, recurrent episode, severe, specified as with psychotic behavior 296.34 [facility] [place] [facility] [address] [address]- 8927 May, Bipolar I disorder, most recent episode (or current) mixed, moderate 296.62 [facility] [id number] [place] [address] 21286- 4379 May, [facility] [id number] [place] [address] 23815- 5806 Apr, [facility] [id number] [place] [address] 28002- 6957 Apr, [facility] [id number] [place] [address] 33879- 7254 Apr, Unspecified disorder of kidney and ureter 593.9 and Diabetes mellitus type 2, uncontrolled 250.02 [facility] [id number] [place] [address] 40425- 3835 Apr, [facility] [id number] [place] [address] 09031- 6174 Apr, [facility] [id number] [place] [address] 34995- 9388 Apr, [facility] [id number] [place] [address] 94503- 5686 Apr, [facility] [id number] [place] [address] 95576- 7667 Apr, Diabetes mellitus type II, uncontrolled 250.02 [facility] [id number] [place] [address] 55745- 0818 Apr, [facility] [id number] [place] [address] 41297- 5664 Mar, [facility] [id number] [place] [address] 08779- 7751 Mar, [facility] [id number] [place] [address] 75812- 5692 Mar, [facility] [id number] [place] [address] 30317- 1540 Mar, Major depressive disorder, recurrent episode, severe, specified as with psychotic behavior 296.34 and Bipolar I disorder, most recent episode (or current) mixed, moderate 296.62 [facility] [id number] [place] [address] 36614- 1243 Mar, Diabetes 250.00 ; Anuria 788.5 ; Nausea and vomiting 787.01 and Diarrhea 787.91 [facility] [id number] [place] [address] 86171- 1171 Mar, Diabetes 250.00 [facility] [address] 16554- 1122 Mar, [facility] [id number] [place] [address] 57000- 2469 Mar, Diabetes 250.00 [facility] [id number] [place] [address] 81714- 4012 Mar, [facility] [id number] [place] [address] 46123- 7984 Mar, [facility] [id number] [place] [address] 95454- 9080 Mar, [facility] [id number] [place] [address] 32156- 9806 Mar, [facility] [id number] [place] [address] 09062- 2254 Mar, Bipolar I disorder, most recent episode (or current) mixed, moderate 296.62 and Major depressive disorder, recurrent episode, severe, specified as with psychotic behavior 296.34 [facility] [id number] [place] [address] 67926- 3300 Mar, Magnesium deficiency 275.2 ; Hypokalemia 276.8 ; Nausea & vomiting 787.01 and Diabetes mellitus type 2, uncontrolled 250.02 [facility] [id number] [place] [address] 02167- 3539 Feb, [facility] [id number] [place] [address] 22302- 7580 Feb, Bipolar I disorder, most recent episode (or current) mixed, moderate 296.62 [facility] [id number] [place] [address] 89258- 7179 Feb, Nausea and vomiting 787.01 ; Left elbow pain 719.42 ; Anuria 788.5 and Diabetes 250.00 [facility] [id number] [place] [address] 34255- 0060 Feb, [facility] [address] 59367- 9672 Feb, Hypopotassemia 276.8 and Hypokalemia 276.8 [place] [facility] [id number] [place] [address] 18330- 8126 Feb, Hypopotassemia 276.8 and Hypokalemia 276.8 [place] [facility] [id number] [place] [address] 50532- 6425 Feb, Seborrheic keratoses 702.19 [place] [id number] [place] [address] 37891- 8959 Feb, Hypopotassemia 276.8 and Low magnesium levels 275.2 [facility] [id number] [place] [address] 07369- 5031 January, [facility] [id number] [place] [address] 72084- 7222 January, [facility] [id number] [place] [address] 78049- 5718 January, [facility] [id number] [place] [address] 26438- 6375 January, Scalp lesion 709.9 [facility] [id number] [place] [address] 80661- 1128 January, [facility] [address] [facility] [id number] [address]- 7354 Dec, Tear of medial cartilage or meniscus of knee, current 836.0 and 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 [facility] [address] [facility] [id number] [place] [address]- 3426 Dec, [facility] [address] [facility] [id number] [address]- 8242 Dec, [facility] [address] [facility] [id number] [address]- 4281 Dec, Squamous cell carcinoma, 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 [facility] [id number] [address]- 1732 14 Dec, 2014 [facility] [address] [place] [address]- 7789 Dec, [facility] [id number] [address]- 3424 Nov, [facility] [address] [id number] [place] [address]- 5731 Nov, [facility] [address] [address]- 0543 Nov, [facility] [id number] [address]- 5176 Nov, [facility] [id number] [address]- 9031 Nov, [facility] [address] [facility] [id number] [place] 5777 Nov, [facility] [address] [facility] [id number] [address]- 7691 Nov, [facility] [address] [facility] [id number] [place] 4951 Nov, [facility] [id number] [place] [address]- 7642 Nov, 2014 [facility] [place] [facility] [address] [id number] [place] [address]- 1380 Nov, 2014 [facility] [place] [facility] [address] [id number] [place] [address]- 9866 Nov, 2014 [facility] [place] [facility] [address] [facility] [id number] [place] [address]- 1800 Nov, 2014 [facility] [place] [facility] [address] [id number] [place] [address]- 4243 Oct, 2014 [facility] [place] [facility] [address] [id number] [place] [address]- 2756 Oct, 2014 [facility] [place] [facility] [address] [facility] [id number] [place] [address]- 6997 Oct, 2014 [facility] [place] [facility] [address] [facility] [id number] [place] [address]- 7106 Oct, 2014 [facility] [place] [facility] [address] [facility] [id number] [place] [address]- 0915 Oct, 2014 [facility] [place] [facility] [address] [id number] [address]- 9482 Oct, 2014 [facility] [place] [facility] [address] [facility] [id number] [place] [address]- 0268 Oct, 2014 [facility] [place] [facility] [address] [facility] [id number] [place] [address]- 5785 Oct, 2014 [facility] [place] [facility] [address] [id number] [place] [address]- 2180 Oct, [facility] [place] [facility] [address] [id number] [place] [address]- 2487 Sep, [facility] [place] [facility] [address] [facility] [id number] [place] [address]- 3064 Sep, [facility] [place] [facility] [address] [facility] [id number] [place] [address]- 3766 Sep, [facility] [place] [facility] [address] [id number] [place] [address]- 6340 Sep, [facility] [place] [facility] [address] [id number] [place] [address]- 5809 Sep, [facility] [place] [facility] [address] [id number] [place] [address]- 2951 Sep, [facility] [place] [facility] [address] [id number] [place] [address]- 6056 Sep, [facility] [place] [facility] [address] [id number] [place] [address]- 9025 Sep, [facility] [place] [facility] [address] [id number] [place] [address]- 2164 Sep, [facility] [place] [facility] [address] [id number] [place] [address]- 7833 Sep, [facility] [place] [facility] [address] [id number] [place] [address]- 6115 Sep, [facility] [place] [facility] [address] [id number] [place] [address]- 0123 Sep, [facility] [place] [facility] [address] [id number] [address]- 7660 Sep, [facility] [place] [facility] [address] [id number] [address]- 6525 Sep, [facility] [place] [facility] [address] [id number] [address]- 5697 Sep, [facility] [place] [facility] [address] [id number] [place] [address]- 2980 Sep, [facility] [place] [facility] [address] [id number] [address]- 9571 Aug, [facility] [place] [facility] [address] [id number] [place] [address]- 4551 Aug, [facility] [place] [facility] [address] [id number] [place] [address]- 8497 Aug, [facility] [address] [id number] [place] [address]- 1921 Aug, [facility] [address] [id number] [place] [address]- 3293 Aug, [facility] [address] [id number] [place] [address]- 0665 Aug, [facility] [address] [id number] [place] [address]- 4989 Aug, [facility] [address] [id number] [place] [address]- 2113 Aug, [facility] [address] [id number] [place] [address]- 6138 Aug, [facility] [address] [id number] [place] [address]- 7171 Aug, [facility] [address] [id number] [place] [address]- 9933 Aug, [facility] [address] [place] [address] Aug, [facility] [address] [id number] [place] [address]- 8756 Aug, [facility] [address] [id number] [place] [address]- 5267 Aug, [facility] [address] [id number] [place] [address]- 5811 Aug, [facility] [address] [id number] [place] [address]- 8385 Aug, [facility] [address] [id number] [place] [address]- 7232 Aug, [facility] [address] [id number] [place] [address]- 5846 Aug, [facility] [address] [id number] [place] [address]- 4976 Aug, [facility] [place] [facility] [address] [id number] [place] [address]- 2954 Aug, [facility] [place] [facility] [address] [id number] [place] [address]- 5415 Aug, [facility] [place] [facility] [address] [id number] [place] [address]- 9964 Aug, [facility] [place] [facility] [address] [id number] [place] [address]- 7426 Aug, [facility] [place] [facility] [address] [id number] [place] [address]- 9506 Aug, [facility] [place] [facility] [address] [id number] [place] [address]- 9543 Aug, [facility] [place] [facility] [address] [id number] [place] [address]- 1014 Aug, [facility] [place] [facility] [address] [id number] [place] [address]- 8574 Aug, [facility] [place] [facility] [address] [id number] [place] [address]- 5556 Aug, [facility] [place] [facility] [address] [id number] [place] [address]- 7164 Aug, [facility] [place] [facility] [address] [id number] [place] [address]- 8524 Aug, [facility] [place] [facility] [address] [id number] [place] [address]- 1356 Jul, [facility] [place] [facility] [address] [id number] [place] [address]- 0657 Jul, [facility] [place] [facility] [address] [id number] [place] [address]- 2227 Jul, [facility] [place] [facility] [address] [id number] [place] 7694 Jul, [facility] [place] [facility] [address] [id number] [place] [address]- 8841 Jul, [facility] [place] [facility] [address] [id number] [place] [address]- 0781 Jul, [facility] [place] [facility] [address] [id number] [place] [address]- 6921 Jul, [facility] [place] [facility] [address] [id number] [place] [address]- 8648 Jul, [facility] [place] [facility] [address] [id number] [place] [address]- 9611 Jul, [facility] [place] [facility] [address] [id number] [place] [address]- 3185 Jul, [facility] [place] [facility] [address] [id number] [place] [address]- 6334 Jun, [facility] [place] [facility] [address] [id number] [place] [address]- 9593 Jun, [facility] [place] [facility] [address] [id number] [place] [address]- 0368 Jun, [facility] [place] [facility] [address] [id number] [address]- 7938 Jun, [facility] [place] [facility] [address] [id number] [place] [address]- 1473 Jun, [facility] [place] [facility] [address] [id number] [address]- 1263 Jun, [facility] [place] [facility] [address] [id number] [place] [address]- 9871 Jun, [facility] [place] [facility] [address] [id number] [place] [address]- 5430 Jun, [facility] [place] [facility] [address] [id number] 3959 Jun, [facility] [place] [facility] [address] [id number] [place] [address]- 1179 Jun, [facility] [place] [facility] [address] [id number] [place] [address] 2544 29 Sep, 2013 [facility] [place] [facility] [address] [id number] [place] [address]- 6687 29 Sep, 2013 [facility] [place] [facility] [address] [id number] [place] [address]- 7002 26 Sep, 2013 [facility] [place] [facility] [address] [id number] [place] [address]- 1619 26 Sep, 2013 [facility] [place] [facility] [address] [id number] [place] [address]- 5825 17 Sep, 2013 [facility] [place] [facility] [address] [id number] [place] [address]- 8282 17 Sep, 2013 [facility] [place] [facility] [address] [id number] [place] [address]- 7460 15 May, 2013 [facility] [place] [facility] [address] [id number] [place] [address]- 2543 15 May, 2013 [facility] [place] [facility] [address] [id number] [place] [address]- 9268 15 May, 2013 [facility] [place] [facility] [address] [id number] [place] [address]- 2939 15 Sep, 2013 [facility] [place] [facility] [address] [id number] [place] [address] 2545 10 May, 2013 [facility] [place] [facility] [address] [id number] [place] [address]- 2548 10 Sep, 2013 [facility] [place] [facility] [address] [id number] [place] [address]- 2542 09 Sep, 2013 [facility] [place] [facility] [address] [id number] [place] [address]- 254 09 Sep, 2013 [facility] [place] [facility] [address] [id number] [place] [address]- 9677 04 Sep, 2013 [facility] [place] [facility] [address] [id number] [place] [address]- 8279 May, [facility] [place] [facility] [address] [id number] [place] [address]- 1048 Apr, [facility] [place] [facility] [address] [id number] [place] [address]- 7145 Apr, [facility] [place] [facility] [address] [id number] [place] [address]- 3830 Apr, [facility] [place] [facility] [address] [id number] [place] [address]- 9791 Apr, [facility] [place] [facility] [address] [id number] [place] [address]- 5455 Apr, [facility] [place] [facility] [address] [id number] [place] [address]- 2100 Apr, [facility] [place] [facility] [address] [id number] [place] [address]- 7051 Apr, [facility] [place] [facility] [address] [id number] [place] [address]- 6746 Apr, [facility] [place] [facility] [address] [id number] [place] [address]- 6002 Apr, [facility] [place] [facility] [address] [id number] [place] [address]- 0145 Apr, [facility] [place] [facility] [address] [id number] [place] [address]- 7204 Apr, [facility] [place] [facility] [address] [id number] [place] [address]- 7714 Apr, [facility] [place] [facility] [address] [id number] [place] [address]- 8132 Apr, [facility] [place] [facility] [address] [id number] [place] [address]- 7884 Apr, [facility] [place] [facility] [address] [id number] [place] [address]- 1018 Apr, [facility] [place] [facility] [address] [id number] [place] [address]- 2266 Mar, [facility] [place] [facility] [address] [id number] [place] [address] Mar, [facility] [place] [facility] [address] [id number] [place] [address] Mar, [facility] [place] [facility] [address] [id number] [place] [address] Mar, [facility] [place] [facility] [address] [id number] [place] [address] Mar, [facility] [place] [facility] [address] [id number] [place] [address] Mar, [facility] [place] [facility] [address] [id number] [place] [address] Mar, [facility] [place] [facility] [address] [id number] [place] [address] Mar, [facility] [place] [facility] [address] [id number] [place] [address] Mar, [facility] [place] [facility] [address] [id number] [place] [address] Mar, [facility] [place] [facility] [address] [id number] [address] Mar, [facility] [place] [facility] [address] [id number] [place] [address] Mar, [facility] [place] [facility] [address] [id number] [place] [address] Mar, [facility] [place] [facility] [address] [id number] [place] [address]- [address] Mar, [facility] [place] [facility] [address] [id number] [place] [address] Mar, [facility] [place] [facility] [address] [id number] [place] [address]- [address] Mar, [facility] [place] [facility] [address] [id number] [place] [address]- [address] Mar, [facility] [place] [facility] [address] [id number] [place] [address]- [address] Mar, [facility] [place] [facility] [address] [id number] [place] [address]- [address] Feb, [facility] [place] [facility] [address] [id number] [place] [address] Feb, [facility] [place] [facility] [address] [id number] [place] [address] Feb, [facility] [place] [facility] [address] [id number] [place] [address]- [address] Feb, [facility] [place] [facility] [address] [id number] [place] [address]- [address] Feb, [facility] [place] [facility] [address] [id number] [place] [address]- [address] Feb, [facility] [place] [facility] [address] [id number] [place] [address]- [address] Feb, [facility] [place] [facility] [address] [id number] [place] [address]- [address] Feb, [facility] [place] [facility] [address] [id number] [place] [address]- [address] Feb, [facility] [place] [facility] [address] [id number] [place] [address]- [address] Feb, [facility] [place] [facility] [address] [id number] [place] [address]- [address] Feb, [facility] [place] [facility] [address] [id number] [place] [address]- [address] Feb, [facility] [place] [facility] [address] [id number] [place] [address]- [address] Feb, [facility] [place] [facility] [address] [id number] [place] [address]- [address] Feb, [facility] [place] [facility] [address] [id number] [place] [address] January, [facility] [place] [facility] [address] [id number] [place] [address] January, [facility] [place] [facility] [address] [id number] [place] [address] January, [facility] [address] [id number] [place] [address] January, [facility] [place] [facility] [address] [id number] [place] [address] January, [facility] [address] [id number] [place] [address] January, [facility] [address] [id number] [place] [address] January, [facility] [place] [facility] [address] [id number] [place] [address] January, [facility] [place] [facility] [address] [id number] [place] [address]15 January, [facility] [place] [facility] [address] [id number] [place] [address]- [address] January, [facility] [place] [facility] [address] [id number] [place] [address]- [address] January, [facility] [place] [facility] [address] [id number] [place] [address] January, [facility] [place] [facility] [address] [id number] [place] [address]- [address] January, [facility] [place] [facility] [address] [id number] [place] [address]- [address]97 January, [facility] [place] [facility] [address] [id number] [place] [address]- [address] Dec, [facility] [place] [facility] [address] [id number] [place] [address]- [address]39 Dec, [facility] [place] [facility] [address] [id number] [place] [address]- [address] Dec, [facility] [place] [facility] [address] [id number] [place] [address]- [address] Dec, [facility] [place] [facility] [address] [id number] [place] [address]- [address] Dec, [facility] [place] [facility] [address] [id number] [place] [address]- 8631 Dec, [facility] [place] [facility] [address] [id number] [place] [address]- [address] Dec, [facility] [place] [facility] [address] [id number] [place] [address]- [address] Dec, [facility] [place] [facility] [address] [id number] [place] [address] Dec, [facility] [place] [facility] [address] [id number] [place] [address] Dec, [facility] [place] [facility] [address] [id number] [place] [address] 3669 Nov, [facility] [place] [facility] [address] [id number] [place] [address] 7895 Nov, [facility] [place] [facility] [address] [id number] [place] [address] 0696 Nov, [facility] [place] [facility] [address] [id number] [place] [address] 5118 Nov, [facility] [place] [facility] [address] [id number] [place] [address]- 0792 Nov, [facility] [place] [facility] [address] [id number] [place] [address]- 3591 Nov, [facility] [place] [facility] [address] [id number] [place] [address]- 6430 Nov, [facility] [place] [facility] [address] [id number] [place] [address]- 3868 Nov, [facility] [place] [facility] [address] [id number] [place] [address]- 1496 Nov, [facility] [place] [facility] [address] [id number] [place] [address]- 4929 Nov, [facility] [place] [facility] [address] [id number] [place] [address]- 6475 Oct, [facility] [place] [facility] [address] [id number] [place] [address]- 3441 Oct, [facility] [place] [facility] [address] [facility] [id number] [place] [address]- 7741 Oct, [facility] [place] [facility] [address] [id number] [place] [address]- 2200 Oct, [facility] [place] [facility] [address] [id number] [place] [address]- 1329 Oct, [facility] [place] [facility] [address] [facility] [id number] [place] [address]- 4044 Oct, [facility] [place] [facility] [address] [facility] [id number] [place] [address]- 1003 Oct, [facility] [place] [facility] [address] [facility] [id number] [place] [address]- 8203 Oct, [facility] [place] [facility] [address] [facility] [id number] [place] [address]- 9498 Oct, [facility] [place] [facility] [address] [id number] [place] [address]- 6196 Oct, [facility] [place] [facility] [address] [facility] [id number] [place] [address]- 6831 Oct, [facility] [place] [facility] [address] [facility] [id number] [place] [address]- 7635 Oct, [facility] [address] [id number] [place] [address]- 3594 Oct, [facility] [place] [facility] [address] [id number] [place] [address]- 9484 Oct, [facility] [place] [facility] [address] [id number] [place] [address]- 0329 Sep, [facility] [place] [facility] [address] [id number] [place] [address]- 4370 Sep, [facility] [place] [facility] [address] [id number] [place] [address]- 9272 Sep, [facility] [place] [facility] [address] [id number] [place] [address]- 4484 Sep, [facility] [place] [facility] [address] [id number] [place] [address]- 1817 Sep, [facility] [place] [facility] [address] [id number] [place] [address]- 4997 Sep, [facility] [place] [facility] [address] [id number] [place] [address]- 6978 Sep, [facility] [place] [facility] [address] [facility] [id number] [place] [address]- 2071 Sep, [facility] [place] [facility] [address] [id number] [place] [address]- 8733 Sep, [facility] [place] [facility] [address] [id number] [place] [address]- 2995 Sep, [facility] [place] [facility] [address] [id number] [place] [address]- 0398 Aug, [facility] [place] [facility] [address] [id number] [place] [address]- 9225 Aug, [facility] [place] [facility] [address] [id number] [place] [address]- 4499 Jul, [facility] [place] [facility] [address] [id number] [place] [address]- 0071 Jul, [facility] [place] [facility] [address] [id number] [place] [address]- 7658 Jul, [facility] [place] [facility] [address] [id number] [place] [address]- 6157 Jul, [facility] [place] [facility] [address] [id number] [place] [address]- 3550 Jul, [facility] [place] [facility] [address] [id number] [place] [address]- 9374 Jul, [facility] [place] [facility] [address] [id number] [place] [address]- 2850 Jul, [facility] [place] [facility] [address] [id number] [place] [address]- 1911 Jul, [facility] [place] [facility] [address] [id number] [place] [address]- 9086 Jul, [facility] [place] [facility] [address] [id number] [place] [address]- 6417 Jul, [facility] [place] [facility] [address] [id number] [place] [address]- 1583 Jul, [facility] [place] [facility] [address] [id number] [place] [address]- 2210 Jul, [facility] [place] [facility] [address] [id number] [place] [address]- 7648 Jul, [facility] [place] [facility] [address] [id number] [place] [address]- 0709 Jul, [facility] [place] [facility] [address] [id number] [place] [address]- 3377 Jul, [facility] [place] [facility] [address] [id number] [place] [address]- 8219 Jul, [facility] [place] [facility] [address] [id number] [place] [address]- 9348 Jul, [facility] [place] [facility] [address] [id number] [place] [address] 254 Jul, [facility] [place] [facility] [address] [id number] [place] [address]- 2546 Jul, [facility] [place] [facility] [address] [id number] [place] [address] 2541 Jun, 2012 [facility] [place] [facility] [address] [id number] [place] [address]- 2547 Jun, 2012 [facility] [place] [facility] [address] [id number] [place] [address]- 5822 Jun, 2012 [facility] [place] [facility] [address] [id number] [place] [address]- 1230 Jun, 2012 [facility] [place] [facility] [address] [id number] [place] [address]- 4955 Jun, 2012 [facility] [place] [facility] [address] [id number] [place] [address]- 7763 Jun, 2012 [facility] [place] [facility] [address] [id number] [place] [address]- 8904 Jun, 2012 [facility] [place] [facility] [address] [id number] [place] [address]- 5762 Jun, [facility] [place] [facility] [address] [id number] [place] [address]- 6053 Jun, [facility] [place] [facility] [address] [id number] [place] [address]- 2540 Jun, [facility] [place] [facility] [address] [id number] [place] [address]- 2547 Jun, [facility] [place] [facility] [address] [id number] [place] [address] 2547 May, [facility] [place] [facility] [address] [id number] [place] [address]- 2546 May, [facility] [place] [facility] [address] [id number] [place] [address]- 1189 19 May, 2012 [facility] [address] [id number] [place] [address]- 8806 17 May, 2012 [facility] [address] [id number] [place] [address] 2546 11 May, 2013 [facility] [address] [id number] [place] [address]- 9259 10 May, 2013 [facility] [address] [id number] [place] [address] 2549 09 May, 2013 [facility] [address] [id number] [place] [address]- 5762 05 May, 2013 [facility] [address] [id number] [place] [address]- 3137 Apr, [facility] [address] [id number] [place] [address]- 8874 Apr, [facility] [address] [id number] [place] [address]- 5813 Apr, [facility] [place] [facility] [address] [id number] [place] [address]- 7822 Apr, [facility] [address] [id number] [place] [address]- 4552 Apr, [facility] [place] [facility] [address] [id number] [place] [address]- 5489 Mar, [facility] [place] [facility] [address] [id number] [place] [address]- 5415 Mar, [facility] [place] [facility] [address] [id number] [place] [address]- 6798 Mar, [facility] [place] [facility] [address] [id number] [place] [address]- 4135 Mar, [facility] [place] [facility] [address] [id number] [place] [address]- 9280 Mar, [facility] [place] [facility] [address] [id number] [place] [address]- 6762 Mar, [facility] [place] [facility] [address] [id number] [place] [address]- 0321 Mar, [facility] [place] [facility] [address] [id number] [place] [address]- 0710 Mar, [facility] [place] [facility] [address] [id number] [place] [address]- 1410 Feb, [facility] [address] [id number] [place] [address]- 2413 Feb, [facility] [place] [facility] [address] [id number] [place] [address]- 0007 January, [facility] [address] [id number] [place] [address]- 9902 January, [facility] [address] [id number] [place] [address]- 6271 Dec, [facility] [place] [facility] [address] [id number] [place] [address]- 7683 Dec, [facility] [place] [facility] [address] [id number] [place] [address]- 5937 Nov, [facility] [place] [facility] [address] [id number] [place] [address]- 1790 Nov, [facility] [place] [facility] [address] [id number] [place] [address]- 8531 Nov, [facility] [place] [facility] [address] [id number] [place] [address]- 8942 Nov, [facility] [place] [facility] [address] [id number] [place] [address]- 0320 Oct, [facility] [place] [facility] [address] [id number] [place] [address]- 1078 Oct, [facility] [place] [facility] [address] [id number] [place] [address]- 3730 26 Oct, 2012 [facility] [address] [id number] [place] [address]- 5696 26 Oct, 2012 [facility] [address] [id number] [place] [address]- 2176 16 Oct, 2012 [facility] [address] [id number] [place] [address]- 7196 14 Oct, 2012 [facility] [address] [id number] [place] [address] 2548 08 Oct, 2012 [facility] [address] [id number] [place] [address]- 5031 07 Oct, 2012 [facility] [address] [id number] [place] [address]- 5446 03 Oct, 2012 [facility] [address] [id number] [place] [address]- 6593 30 Sep, 2012 [facility] [address] [id number] [place] [address]- 0026 29 Sep, 2012 [facility] [address] [id number] [place] [address]- 2964 23 Sep, 2012 [facility] [address] [id number] [place] [address]- 8799 Sep, [facility] [address] [id number] [place] [address]- 1331 17 Sep, 2012 [facility] [address] [id number] [place] [address]- 1120 Sep, [facility] [place] [facility] [address] [id number] [place] [address]- 1348 09 Sep, 2012 [facility] [place] [facility] [address] [id number] [place] [address]- 5261 08 Sep, 2012 [facility] [address] [id number] [place] [address]- 2568 Aug, [facility] [place] [facility] [address] [id number] [place] [address]- 5495 Aug, [facility] [place] [facility] [address] [id number] [place] [address]- 4445 Aug, [facility] [place] [facility] [address] [id number] [place] [address]- 2920 Aug, [facility] [place] [facility] [address] [id number] [place] [address]- 0125 Aug, [facility] [place] [facility] [address] [id number] [place] [address]- 9672 Aug, [facility] [place] [facility] [address] [id number] [place] [address]- 2311 Aug, [facility] [place] [facility] [address] [id number] [place] [address]- 9316 Aug, [facility] [place] [facility] [address] [id number] [place] [address]- 3418 Jul, [facility] [place] [facility] [address] [id number] [place] [address]- 5940 Jul, [facility] [place] [facility] [address] [facility] [id number] [place] [address]- 2560 Jul, [facility] [place] [facility] [address] [facility] [id number] [place] [address]- 7713 Jul, [facility] [place] [facility] [address] [id number] [place] [address]- 4648 Jul, [facility] [place] [facility] [address] [id number] [place] [address]- 5627 Jul, [facility] [place] [facility] [address] [id number] [place] [address]- 6606 Jun, [facility] [place] [facility] [address] [id number] [place] [address]- 8639 Jun, [facility] [place] [facility] [address] [id number] [place] [address]- 4607 Jun, [facility] [place] [facility] [address] [id number] [place] [address]- 4429 23 Jun, 2012 [facility] [place] [facility] [address] [id number] [place] [address]- 2388 Jun, [facility] [place] [facility] [address] [id number] [place] [address]- 5256 19 Jun, 2012 [facility] [place] [facility] [address] [id number] [place] [address]- 3763 19 Jun, 2012 [facility] [place] [facility] [address] [id number] [place] [address]- 7703 10 Jun, 2012 [facility] [place] [facility] [address] [id number] [place] [address]- 8298 10 Jun, 2012 [facility] [place] [facility] [address] [facility] [id number] [place] [address]- 6663 26 May, 2012 [facility] [place] [facility] [address] [id number] [place] [address]- 2879 24 May, 2012 [facility] [place] [facility] [address] [facility] [id number] [place] [address]- 5392 18 May, 2012 [facility] [place] [facility] [address] [facility] [id number] [place] [address]- 0350 30 Apr, 2012 [facility] [place] [facility] [address] [id number] [place] [address]- 7807 29 Apr, 2012 [facility] [place] [facility] [address] [id number] [place] [address]- 6497 18 Apr, 2012 [facility] [place] [facility] [address] [id number] [place] [address]- 3259 14 Apr, 2012 [facility] [place] [facility] [address] [facility] [id number] [place] [address]- 8112 10 Apr, 2012 [facility] [place] [facility] [address] [facility] [id number] [place] [address]- 1663 07 Apr, 2012 [facility] [place] [facility] [address] [id number] [place] [address]- 5681 Mar, [facility] [place] [facility] [address] [id number] [place] [address]- 3084 Mar, [facility] [place] [facility] [address] [id number] [place] [address]- 2546 Mar, [facility] [place] [facility] [address] [id number] [place] [address]- 7886 Mar, [facility] [place] [facility] [address] [id number] [place] [address]- 5333 Feb, [facility] [place] [facility] [address] [id number] [place] [address]- 2648 Feb, [facility] [place] [facility] [address] [id number] [place] [address]- 9701 Feb, [facility] [place] [facility] [address] [id number] [place] [address]- 6924 Feb, [facility] [place] [facility] [address] [id number] [place] [address]- 2631 Feb, [facility] [place] [facility] [address] [id number] [place] [address]- 3276 January, [facility] [place] [facility] [address] [id number] [place] [address]- 8835 January, [facility] [place] [facility] [address] [id number] [place] [address]- 7363 January, [facility] [place] [facility] [address] [id number] [place] [address]- 6586 January, [facility] [place] [facility] [address] [id number] [place] [address]- 1636 January, [facility] [place] [facility] [address] [id number] [place] [address]- 2546 January, [facility] [place] [facility] [address] [id number] [place] [address]- 2763 24 Dec, 2011 [facility] [place] [facility] [address] [id number] [place] [address]- 2728 24 Dec, 2011 [facility] [place] [facility] [address] [id number] [place] [address]- 4722 17 Dec, 2011 [facility] [place] [facility] [address] [id number] [place] 3384 09 Dec, 2011 [facility] [place] [facility] [address] [id number] [place] [address]- 9795 06 Dec, 2011 [facility] [place] [facility] [address] [id number] [place] [address]- 8068 27 Nov, 2011 [facility] [place] [facility] [address] [id number] [place] [address]- 1262 14 Nov, 2011 [facility] [place] [facility] [address] [id number] [place] [address]- 3408 Nov, [facility] [place] [facility] [address] [id number] [place] [address]- 5327 07 Nov, 2011 [facility] [place] [facility] [address] [id number] [place] [address]- 8071 29 Oct, 2011 [facility] [place] [facility] [address] [id number] [place] [address]- 1728 28 Oct, 2011 [facility] [place] [facility] [address] [id number] [place] [address]- 5882 24 Oct, 2011 [facility] [place] [facility] [address] [id number] [place] [address]- 7677 13 Oct, 2011 [facility] [place] [facility] [address] [id number] [place] [address]- 6689 08 Oct, 2011 [facility] [place] [facility] [address] [id number] [place] [address]- 0759 31 Sep, 2011 [facility] [place] [facility] [address] [id number] [place] [address]- 8742 30 Sep, 2011 [facility] [place] [facility] [address] [id number] [place] [address]- 1739 Sep, [facility] [place] [facility] [address] [id number] [place] [address]- 7668 Sep, [facility] [place] [facility] [address] [id number] [place] [address]- 1715 Sep, [facility] [address] [id number] [place] [address]- 4500 Sep, [facility] [place] [facility] [address] [id number] [place] [address]- 7639 Aug, [facility] [place] [facility] [address] [id number] [place] [address]- 8705 Aug, [facility] [place] [facility] [address] [id number] [place] [address]- 4386 Aug, [facility] [place] [facility] [address] [id number] [place] [address]- 3422 Jul, [facility] [place] [facility] [address] [id number] [place] [address]- 7155 Jul, [facility] [place] [facility] [address] [id number] [place] [address]- 2730 Jul, [facility] [place] [facility] [address] [id number] [place] [address]- 4924 Jul, [facility] [place] [facility] [address] [id number] [place] [address]- 4628 Jun, [facility] [place] [facility] [address] [id number] [place] [address]- 7180 Jun, [facility] [place] [facility] [address] [id number] [place] [address]- 6169 Jun, [facility] [place] [facility] [address] [id number] [place] [address]- 2210 Jun, [facility] [place] [facility] [address] [id number] [place] [address]- 9742 Jun, [facility] [place] [facility] [address] [id number] [place] [address] 10 Jun, 2011 [facility] [place] [facility] [address] [id number] [place] [address] 11 Mar, 2011 [facility] [place] [facility] [address] [id number] [place] [address] 18 Dec, 2010 [facility] [place] [facility] [address] [id number] [place] [address] 11 Dec, 2010 [facility] [place] [facility] [address] [id number] [place] [address] 6780 18 Nov, 2010 [facility] [place] [facility] [address] [id number] [place] [address]44 16 Nov, 2010 [facility] [place] [facility] [address] [id number] [place] [address] 10 Sep, 2010 [facility] [place] [facility] [address] [id number] [place] [address] 31 Aug, 2010 [facility] [place] [facility] [address] [id number] [place] [address] 29 Aug, 2010 [facility] [place] [facility] [address] [id number] [place] [address] 2974 29 Aug, 2010 [facility] [place] [facility] [address] [id number] [place] [address] 5639 29 Aug, 2010 [facility] [place] [facility] [address] [id number] [address] 27 Aug, 2010 [facility] [place] [facility] [address] [id number] [place] [address] 2572 14 Aug, 2010 [facility] [place] [facility] [address] [id number] [place] [address] 08 Aug, 2010 [facility] [place] [facility] [address] [id number] [place] [address] 08 Aug, 2010 [facility] [place] [facility] [address] [id number] [address] 07 Aug, 2010 [facility] [place] [facility] [address] [id number] [place] [address] 1646 Aug, [facility] [place] [facility] [address] [facility] [id number] [address] Aug, [facility] [place] [facility] [address] [facility] [id number] [place] [address] Aug, [facility] [place] [facility] [address] [id number] [place] [address] Jul, [facility] [place] [facility] [address] [facility] [id number] [place] [address], [place] [address]- [address] Jul, [facility] [place] [facility] [address] [facility] [id number] [place] [address]- 67[address] Jul, [facility] [place] [facility] [address] [facility] [id number] [place] [address] Jul, [facility] [place] [facility] [address] [facility] [id number] [place] [address] Jul, [facility] [place] [facility] [address] [facility] [id number] [place] [address] 120[address] Jul, [facility] [place] [facility] [address] [facility] [id number] [place] [address]- [address] Jun, [facility] [place] [facility] [address] [facility] [id number] [place] [address] Jun, [facility] [place] [facility] [address] [facility] [id number] [place] [address]44 Jun, [facility] [place] [facility] [address] [facility] [id number] [place] [address] Jun, [facility] [place] [facility] [address] [facility] [id number] [place] [address]115 16 Apr, 2010 [facility] [place] [facility] [address] [facility] [id number] [place] [address] Mar, [facility] [place] [facility] [address] [id number] [place] [address] 479[address] 17 Feb, 2010 [facility] [place] [facility] [address] [id number] [place] [address] January, [facility] [place] [facility] [address] [id number] [place] [address] 2546 15 Dec, 2009 [facility] [place] [facility] [address] [id number] [place] [address] Nov, [facility] [place] [facility] [address] [id number] [place] [address] Aug, [facility] [place] [facility] [address] [id number] [place] [address] Aug, [facility] [place] [facility] [address] [id number] [place] [address]- 2025 Aug, [facility] [place] [facility] [address] [id number] [place] [address] 49[address] Jul, [facility] [place] [facility] [address] [id number] [place] [address] 7023 Jul, [facility] [place] [facility] [address] [id number] [place] [address] 6596 Jul, [facility] [place] [facility] [address] [facility] [id number] [place] [address]- [address] 30 Jun, 2009 [facility] [place] [facility] [address] [id number] [place] [address]- 3558 29 Jun, 2009 [facility] [place] [facility] [address] [id number] [place] [address] 2542 Jun, [facility] [place] [facility] [address] [id number] [place] [address]- [address]46 22 Jun, 2009 [facility] [place] [facility] [address] [id number] [place] [address]- 2543 Jun, [facility] [place] [facility] [address] [id number] [id number] [address] Jun, [facility] [address] [facility] [id number] [place] [address] Apr, [facility] [address] [facility] [id number] [place] [address] Apr, [facility] [address] [facility] [id number] [place] [address] Feb, [facility] [address] [facility] [id number] [place] [address] January, [facility] [address] [facility] [id number] [place] [address] Dec, IMMUNIZATIONS No Known Immunizations SOCIAL HISTORY Never Assessed REASON FOR VISIT BH f/u, Depression. PLAN OF CARE Activity Details Follow Up 1 Week Reason:depression VITAL SIGNS MEDICATIONS Unknown Medications RESULTS No Results PROCEDURES Procedure Date Ordered Result Body Site [facility] VISIT MENTAL HEALTH ESTAB PT November 27, 2017 Psychotherapy, patient &/family, 45 minutes, established patient November 27, 2017 INSTRUCTIONS MEDICATIONS ADMINISTERED No Known [...]
--- OUTSIDE RECORDS SUMMARY | 2018-08-08 14:37 | XMS REPORT ---
Author Author ROSELINE LUIS Organization [facility] Address [address] [place] [address] Care Team Providers Care Block Handler Name Role Phone ROSELINE LUIS Unavailable PROBLEMS Type Condition ICD9-CM Code [id number] Code Onset Dates Condition Status SNOMED Code Problem Chronic lymphocytic leukemia C91.10 Active 33373219 Problem Insomnia, unspecified type G47.00 Active 389765062 Problem Lymphocytosis D72.820 Active 48341294 Problem Anxiety F41.9 Active 10407083 Problem Eye exam abnormal R93.8 Active 531140740 Problem Morbid obesity E66.01 Active 115237698 Problem Diabetic polyneuropathy associated with type 2 diabetes mellitus E11.42 Active 33293216 Problem Essential hypertension I10 Active 41002778 Problem Falling R29.6 Active 258004386 Problem 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 Active 512784523 Problem Cough R05 Active 34634748 Problem Dysuria R30.0 Active 13681422 Problem Eustachian tube dysfunction, unspecified laterality H69.80 Active 55455449 Problem Bilateral primary osteoarthritis of knee M17.0 Active 369821380 Problem Polyneuropathy associated with underlying disease G63 Active 124301077 Problem Anemia of chronic illness D63.8 Active 610621138 Problem Retinal edema H35.81 Active 9461372 Problem DM neuro manif type II E11.49 Active 12104994 Problem Diabetes E11.9 Active 98401862 Problem Hypokalemia E87.6 Active 85054270 Problem Benign prostatic hyperplasia with lower urinary tract symptoms, unspecified morphology N40.1 Active 915079419 Problem Reactive airway disease J45.909 Active 244814717670 Problem Bipolar I disorder, most recent episode (or current) mixed, moderate F31.62 Active 43997108 Problem Chronic pain G89.29 Active 19368746 Problem Leukocytosis D72.829 Active 827233019 ALLERGIES No Information ENCOUNTERS Encounter Location Date Diagnosis [facility] [address] [address] Apr, [facility] [address], [place] [address] 0[address] Apr, [facility] [address], [place] [address] 1992 Mar, [facility] [address], [place] [address] 4556 Mar, [facility] [id number] [place] [address] 09976- 7514 Mar, [facility] [address] [place] [address] 95470- 8610 Mar, Bipolar I disorder, most recent episode (or current) mixed, moderate F31.62 [facility] [address], [place] [address] Feb, Bipolar I disorder, most recent episode (or current) mixed, moderate F31.62 [facility] [address], [place] [address] 9994 Feb, Chronic pain G89.29 [facility] [address] [place] [address] 52339- 1305 Feb, Decubitus ulcer of right foot, stage 3 L89.893 and BMI 50.0- 59.9, adult Z68.43 [facility] [address], [place] [address] 2533 Feb, Bipolar I disorder, most recent episode (or current) mixed, moderate F31.62 [facility] [address] [address] 6930 Feb, [facility] [address], [place] [address] 8055 January, [facility] [address], [place] [address]- 7904 January, Chronic pain G89.29 [facility] [address] [place] [address] 14353- 6405 January, Bipolar I disorder, most recent episode (or current) mixed, moderate F31.62 [facility] [address] [place] [id number] [place] [address] 61556- 8091 January, Bipolar I disorder, most recent episode (or current) mixed, moderate F31.62 [facility] [address] [place] [id number] [place] [address] 69641- 2494 Dec, Bipolar I disorder, most recent episode (or current) mixed, moderate F31.62 and BMI 50.0-59.9, adult Z68.43 [facility] [address] [place] [id number] [place] [address] 26355- 1284 Dec, Bipolar I disorder, most recent episode (or current) mixed, moderate F31.62 [facility] [address] [id number] [place] [address] 16686- 3389 Dec, Chronic pain G89.29 [facility] [address] [id number] [place] [address] 88806- 4298 Dec, DM neuro manif type II E11.49 ; Right flank pain R10.9 ; 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 ; Encounter for medication monitoring Z51.81 and BMI 50.0-59.9, adult Z68.43 [facility] [address] [id number] [place] [address] 77525- 3306 Dec, Bipolar I disorder, most recent episode (or current) mixed, moderate F31.62 [facility] [address] [id number] [place] [address] 55332- 7473 Nov, Bipolar I disorder, most recent episode (or current) mixed, moderate F31.62 [facility] [address] [address] [id number] [place] [address] 00267- 6956 Nov, Chronic pain G89.29 [facility] [address] [address] [id number] [place] [address] 65168- 1252 Nov, Bipolar I disorder, most recent episode (or current) mixed, moderate F31.62 [facility] [address] [id number] [place] [address] Nov, Hypokalemia E87.6 [facility] [address] [id number] [place] [address] 058601- 7629 Nov, Bipolar I disorder, most recent episode (or current) mixed, moderate F31.62 [facility] [address] [id number] [place] [address] 83765- 7126 Oct, Chronic pain G89.29 [facility] [address] 380223- 5851 Oct, BMI 50.0-59.9, adult Z68.43 and Bipolar I disorder, most recent episode (or current) mixed, moderate F31.62 [facility] [address] [address] [id number] [place] [address] 163461- 2617 Oct, Bipolar I disorder, most recent episode (or current) mixed, moderate F31.62 [facility] [address] [id number] [place] [address] 97127- 7835 Oct, [facility] [address] [address] [id number] [place] [address] 13496- 5855 Oct, Hypokalemia E87.6 [facility] [address] [id number] [place] [address] 62293- 4565 Oct, DM neuro manif type II E11.49 [facility] [address] [address] [id number] [place] [address] 04782- 9945 Oct, Bipolar I disorder, most recent episode (or current) mixed, moderate F31.62 [facility] [id number] [place] [address] 35490- 6929 Oct, Bipolar I disorder, most recent episode (or current) mixed, moderate F31.62 [facility] [place] [id number] [place] [address] 10760- 6658 14 Oct, 2017 Hyperkalemia E87.5 ; Falling R29.6 ; BMI 50.0-59.9, adult Z68.43 and Acute left ankle pain M25.[address] 46495- 8085 08 Oct, 2017 DM neuro manif type II E11.[address] 33051- 6961 Oct, [address] 44394- 6862 Sep, Chronic pain G89.[address] 43191- 9138 Sep, [address] 95904- 0812 Sep, Bilateral primary osteoarthritis of knee M17.[address] 06439- 5090 Sep, Generalized edema R60.[address] 99500- 1585 Sep, Bipolar I disorder, most recent episode (or current) mixed, moderate F31.[address] 48206- 2720 15 Sep, 2017 Hypoxia R09.02 ; Other hypervolemia E87.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 ; Anemia of chronic illness D63.8 and BMI 50.0- 59.9, adult Z68.43 [place] [id number] [place] [address] 95796- 6014 Sep, [address] 40181- 0773 Sep, Bipolar I disorder, most recent episode (or current) mixed, moderate F31.62 [facility] [address] [place] [address] 52436- 5797 Aug, Chronic pain G89.29 [facility] [address] [place] [address] 50566- 3357 Aug, Generalized edema R60.1 [facility] [address] [place] [id number] [place] [address] 04577- 0578 Aug, [facility] [address] [address] [id number] [place] [address] 04810- 8294 Aug, [facility] [address] [place] [address] [id number] [place] [address] 364160- 3183 Aug, Bipolar I disorder, most recent episode (or current) mixed, moderate F31.62 [facility] [place] [address] [id number] [place] [address] 09981- 7437 Aug, Bipolar I disorder, most recent episode (or current) mixed, moderate F31.62 [facility] [address] [place] [address] [id number] [place] [address] 95197- 4007 Aug, Chronic pain G89.29 [facility] [address] [address] [id number] [place] [address] 28415- 4113 Jul, Bipolar I disorder, most recent episode (or current) mixed, moderate F31.62 [facility] [address] [place] [address] 50418- 2514 Jul, Bipolar I disorder, most recent episode (or current) mixed, moderate F31.62 and BMI 60.0-69.9, adult Z68.44 [facility] [address] [place] [address] [id number] [place] [address] 44274- 1707 16 Jul, 2017 Bipolar I disorder, most recent episode (or current) mixed, moderate F31.62 [facility] [address] [place] [address] 05347- 8279 Jul, Chronic pain G89.29 [facility] [address], [place] [address]- 6025 Jul, Bipolar I disorder, most recent episode (or current) mixed, moderate F31.62 [facility] [address] [place] [address] 14243- 2674 18 Jun, 2017 Polyneuropathy associated with underlying disease G63 and Diabetes E11.9 [facility] [address] [id number] [place] [address] 02920- 6431 16 Jun, 2017 Bipolar I disorder, most recent episode (or current) mixed, moderate F31.62 [facility] [address] [place] [address] [id number] [place] [address] 30769- 1234 Jun, Chronic pain G89.29 [facility] [address] [place] [address] 17200- 9083 27 May, 2017 Bipolar I disorder, most recent episode (or current) mixed, moderate F31.62 [facility] [address] [place] [address] 96793- 0355 21 May, 2017 Bipolar I disorder, most recent episode (or current) mixed, moderate F31.62 [facility] [address] [place] [address] [id number] [place] [address] 13669- 5886 20 May, 2017 Diabetic polyneuropathy associated with type 2 diabetes mellitus E11.42 [facility] [address] [place] [address] 68388- 8585 18 May, 2017 Bipolar I disorder, most recent episode (or current) mixed, moderate F31.62 [facility] [address], [place] [address]- 5995 13 May, 2017 Bipolar I disorder, most recent episode (or current) mixed, moderate F31.62 [facility] [address], [place] [address]- 1769 12 May, 2017 Chronic pain G89.29 [facility] [address] [place] [address] 99471- 3757 Apr, Bipolar I disorder, most recent episode (or current) mixed, moderate F31.62 [facility] [address] [place] [address] [id number] [place] [address] 77017- 0330 Apr, [facility] [address] [id number] [place] [address] 7525 Apr, Chronic pain G89.29 and DM neuro manif type II E11.49 [facility] [address] 81702- 3732 Apr, [facility] [address] [place] [id number] [place] [address] 521647- 0401 Apr, Bipolar I disorder, most recent episode (or current) mixed, moderate F31.62 [place] [address] [place] [address] [id number] [place] [address] 55158- 1571 Apr, Chronic pain G89.29 [facility] [address] 434049- 1555 Apr, Iliotibial band syndrome, left M76.32 [facility] [address] [id number] [place] [address] 80002- 5316 Apr, Bipolar I disorder, most recent episode (or current) mixed, moderate F31.62 [facility] [address] [place] [id number] [place] [address] 10266- 4183 Mar, Bipolar I disorder, most recent episode (or current) mixed, moderate F31.62 [facility] [id number] [place] [address] 85978- 2042 Mar, Bipolar I disorder, most recent episode (or current) mixed, moderate F31.62 [facility] [address] [place] [id number] [place] [address] 68424- 2235 Mar, [facility] [address] [place] [id number] [place] [address] 67318- 6834 Mar, Bipolar I disorder, most recent episode (or current) mixed, moderate F31.62 [place] [address], [place] [address]- 3885 Mar, Chronic pain G89.29 [facility] [address] [place] [id number] [place] [address] 04164- 7881 Mar, Bipolar I disorder, most recent episode (or current) mixed, moderate F31.62 [facility] [address], [place] [address]- 6558 Mar, Bipolar I disorder, most recent episode (or current) mixed, moderate F31.62 [place] [address] [place] [address] 25723- 9143 Mar, Acute pain of left knee M25.562 ; Left hip pain M25.552 ; Generalized edema R60.1 and Tongue swelling R22.0 [place] [address], [place] [address]- 1731 Mar, [place] [address] [place] [id number] [place] [address] 77139- 8905 Feb, Chronic pain G89.29 [place] [address] [place] [id number] [place] [address] 79603- 3118 Feb, Diabetes E11.9 [facility] [address], [place] [address]- 5197 January, Chronic pain G89.29 [facility] [address], [place] [address]- 7031 January, [place] [address] [place] [address] 69670- 1670 January, Bipolar I disorder, most recent episode (or current) mixed, moderate F31.62 [place] [address], [place] [address]- 9087 Dec, Bipolar I disorder, most recent episode (or current) mixed, moderate F31.62 [place] [address], [place] [address]- 0208 Dec, Chronic pain G89.29 [facility] [address], [place] [address]- 1758 Dec, Bipolar I disorder, most recent episode (or current) mixed, moderate F31.62 [facility] [address] [place] [address] 46577- 2800 Dec, Diabetes E11.9 ; Essential hypertension I10 ; Chronic pain G89.29 and Morbid obesity E66.01 [facility] [address] [id number] [place] [address] 39700- 5959 Dec, [facility] [address] [place] [id number] [place] [address] 59914- 2445 Dec, Bipolar I disorder, most recent episode (or current) mixed, moderate F31.62 [facility] [address] [address] [id number] [place] [address] 47305- 3160 Dec, Bipolar I disorder, most recent episode (or current) mixed, moderate F31.62 [facility] [address] [place] [address] 45257- 1685 Nov, Chronic pain G89.29 [facility] [address] [id number] [place] [address] 42737- 1898 Nov, Bipolar I disorder, most recent episode (or current) mixed, moderate F31.62 [facility] [address], [place] [address]- 6507 Nov, [facility] [address] [id number] [place] [address] 88659- 0564 Nov, Bipolar I disorder, most recent episode (or current) mixed, moderate F31.62 [facility] [address] [place] [id number] [place] [address] 69236- 2612 Nov, Bipolar I disorder, most recent episode (or current) mixed, moderate F31.62 [facility] [address] [place] [address] 88570- 8020 Nov, [facility] [address], [place] [address]- 7449 Nov, [facility] [address] [place] [address] 00788- 3602 Nov, [facility] [address] [place] [address] 52441- 2271 Oct, Chronic pain G89.29 [facility] [address] [id number] [place] [address] 60304- 4195 Oct, Bipolar I disorder, most recent episode (or current) mixed, moderate F31.62 [facility] [address] [id number] [place] [address] 25263- 8294 Oct, [facility] [address] [id number] [place] [address] 73421- 9465 Oct, Chronic pain G89.29 ; Diabetes E11.9 ; Anxiety F41.9 and 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 [facility] [address], [place] [address]- 5708 Oct, [facility] [address] [place] [address] 14099- 8093 Oct, Diabetes E11.9 [facility] [address], [place] [address]- 1043 Oct, Bipolar I disorder, most recent episode (or current) mixed, moderate F31.62 [facility] [address], [place] [address]- 0179 Sep, Chronic pain G89.29 [facility] [address] [place] [address] 25636- 7896 Sep, Chronic pain G89.29 [facility] [address], [place] [address]- 0497 Aug, Chronic pain G89.29 [facility] [address] [id number] [place] [address] 79474- 1392 Jul, [facility] [address] [place] [id number] [place] [address] 36532- 9578 Jul, Diabetes E11.9 [facility] [address] [place] [id number] [place] [address] 02989- 8455 Jul, Chronic pain G89.29 [place] [address] [id number] [place] [address] 06346- 8491 Jul, Bipolar I disorder, most recent episode (or current) mixed, moderate F31.62 [place] [address] [place] [id number] [place] [address] 514520- 8390 Jun, Bipolar I disorder, most recent episode (or current) mixed, moderate F31.62 [place] [address] [place] [id number] [place] [address] 08118- 0249 Jun, [place] [address] [place] [id number] [place] [address] 29758- 3295 Jun, Bipolar I disorder, most recent episode (or current) mixed, moderate F31.62 [place] [address] [place] [id number] [place] [address] 03084- 8484 30 May, 2016 Insomnia, unspecified type G47.00 [place] [address] [place] [address] 25575- 1017 May, Bipolar I disorder, most recent episode (or current) mixed, moderate F31.62 [place] [address] [place] [id number] [place] [address] 05733- 9996 14 May, 2016 [place] [address] [place] [id number] [place] [address] 01317- 1929 08 May, 2016 Bipolar I disorder, most recent episode (or current) mixed, moderate F31.62 [place] [address] [place] [address] 78305- 4120 06 May, 2016 Diabetes E11.9 and Essential hypertension I10 [place] [address] [place] [id number] [place] [address] 04830- 2171 Apr, Chronic pain G89.29 [facility] [address] [address] [id number] [place] [address] 13520- 8351 Apr, Bipolar I disorder, most recent episode (or current) mixed, moderate F31.62 [place] [address] [id number] [place] [address] 89389- 7223 Apr, [facility] [address] [address] [id number] [place] [address] 66322- 0620 Apr, [place] [address] [address] [id number] [place] [address] 71048- 7546 Mar, Chronic pain G89.29 ; Headache, unspecified headache type R51 ; Neuropathy G62.9 ; Pain of right hip joint M25.551 and Essential hypertension I10 [place] [address] [id number] [place] [address] 00037- 6234 Mar, Chronic pain G89.29 [place] [address] [id number] [place] [address] 53266- 4297 Mar, Bipolar I disorder, most recent episode (or current) mixed, moderate F31.62 [place] [address] [id number] [place] [address] 28167- 8662 Feb, Bipolar I disorder, most recent episode (or current) mixed, moderate F31.62 and Insomnia, unspecified type G47.00 [place] [address] [place] [address] 19323- 2330 Feb, Chronic pain G89.29 [place] [address] [address] [id number] [place] [address] 28603- 2297 Feb, Bipolar I disorder, most recent episode (or current) mixed, moderate F31.62 [place] [address] [id number] [place] [address] 59262- 1790 January, Bipolar I disorder, most recent episode (or current) mixed, moderate F31.62 [place] [address] [place] [id number] [place] [address] 90701- 8933 January, Chronic pain G89.29 [facility] [address] 02489- 2151 January, Chronic pain G89.29 and Essential hypertension I10 [facility] [address] 75718- 6527 January, Bipolar I disorder, most recent episode (or current) mixed, moderate F31.62 [facility] [address] [id number] [place] [address] 39179- 4823 Dec, [facility] [address] 63972[address] Dec, [facility] [id number] [place] [address] Dec, [facility] [id number] [place] [address] Dec, [facility] [id number] [place] [address]- [address] Nov, Reactive airway disease J45.909 [facility] [id number] [place] [id number]- [address] Nov, [facility] [id number] [place] [address]- [address] Nov, [facility] [id number] [place] [address]- [address] Nov, [facility] [id number] [place] [address]- [address] Nov, [facility] [address] [address] Nov, Onychomycosis B35.1 ; [place]oe M20.40 ; [place] or callus L84 and DM neuro manif type II E11.49 [facility] [address] [place] [address] Nov, Chronic pain G89.29 ; Leukocytosis D72.829 and Diabetes E11.9 [place] [id number] [place] [address] Nov, [facility] [address] [address] Oct, Bronchitis J40 [place] [address] [address] Oct, [facility] [address] [address] Oct, [place] [address] [address] Oct, Mastoiditis, unspecified laterality H70.90 and Type 2 diabetes mellitus with complication E11.8 [place] [address] [address] Sep, [facility] [id number] [place] [address]- [address] Sep, Dysuria R30.0 ; Cough R05 ; Benign prostatic hyperplasia with lower urinary tract symptoms, unspecified morphology N40.1 ; Hypokalemia E87.6 and Eustachian tube dysfunction, unspecified laterality H69.80 [place] [id number] [place] [address] 70801- 7367 Sep, Moderate mixed bipolar I disorder F31.62 [place] [id number] [place] [address] 48814- 0496 Sep, Hypokalemia E87.6 [place] [address] 42918- 2791 Sep, [place] [id number] [place] [address] 30217- 4304 Sep, Upper respiratory tract infection, unspecified type J06.9 [facility] [address], [place] [address] 7830 Aug, [facility] [id number] [place] [address] 08907- 8929 Aug, Dysuria R30.0 [facility] [id number] [place] [address] 82847- 4861 Aug, [facility] [id number] [place] [address] 93460- 4555 Jul, [facility] [id number] [place] [address] 19814- 8989 Jul, [facility] [id number] [place] [address] 09221- 1971 Jul, [facility] [id number] [place] [address] 32005- 7997 Jul, [facility] [id number] [place] [address] 56405- 6178 Jun, [facility] [address], [place] [address]- 5611 Jun, [facility] [address], [place] [address]- 1328 Jun, [facility] [address], [place] [address]- 6375 May, [facility] [address], [place] [address]- 0774 May, Bipolar I disorder, most recent episode (or current) mixed, moderate 296.62 [facility] [address] [place] [address] 08243- 9862 16 May, [facility] [address], [place] [address]- 3551 May, Bipolar I disorder, most recent episode (or current) mixed, moderate 296.62 and Major depressive disorder, recurrent episode, severe, specified as with psychotic behavior 296.34 [facility] [place] [facility] [address], [place] [address]- 3097 May, Bipolar I disorder, most recent episode (or current) mixed, moderate 296.62 [facility] [id number] [place] [address] 24978- 1285 May, [facility] [id number] [place] [address] 70208- 1904 Apr, [facility] [id number] [place] [address] 83623- 8020 Apr, [facility] [id number] [place] [address] 49178- 8471 Apr, Unspecified disorder of kidney and ureter 593.9 and Diabetes mellitus type 2, uncontrolled 250.02 [facility] [id number] [place] [address] 59220- 6095 Apr, [facility] [id number] [place] [address] 34042- 4666 Apr, [facility] [id number] [place] [address] 38697- 6441 Apr, [facility] [id number] [place] [address] 09185- 9272 Apr, [facility] [id number] [place] [address] 30068- 4957 Apr, Diabetes mellitus type II, uncontrolled 250.02 [facility] [id number] [place] [address] 96689- 0722 Apr, [facility] [id number] [place] [address] 31062- 0759 Mar, [facility] [id number] [place] [address] 92246- 3443 Mar, [facility] [address] [place] [address] 78904- 3433 Mar, [facility] [address] [place] [address] 25532- 8448 Mar, Major depressive disorder, recurrent episode, severe, specified as with psychotic behavior 296.34 and Bipolar I disorder, most recent episode (or current) mixed, moderate 296.62 [facility] [id number] [place] [address] 07752- 7881 Mar, Diabetes 250.00 ; Anuria 788.5 ; Nausea and vomiting 787.01 and Diarrhea 787.91 [facility] [id number] [place] [address] 65037- 7707 Mar, Diabetes 250.00 [facility] [address] 10466- 6209 Mar, [facility] [id number] [place] [address] 34076- 4354 Mar, Diabetes 250.00 [facility] [id number] [place] [address] 50330- 9633 Mar, [facility] [id number] [place] [address] 52468- 2935 Mar, [facility] [id number] [place] [address] 88322- 2746 Mar, [facility] [id number] [place] [address] 62591- 2445 Mar, [facility] [id number] [place] [address] 95770- 6867 Mar, Bipolar I disorder, most recent episode (or current) mixed, moderate 296.62 and Major depressive disorder, recurrent episode, severe, specified as with psychotic behavior 296.34 [facility] [id number] [place] [address] 17212- 5565 Mar, Magnesium deficiency 275.2 ; Hypokalemia 276.8 ; Nausea & vomiting 787.01 and Diabetes mellitus type 2, uncontrolled 250.02 [facility] [id number] [place] [address] 12473- 0063 Feb, [facility] [id number] [place] [address] 53608- 6451 Feb, Bipolar I disorder, most recent episode (or current) mixed, moderate 296.62 [facility] [id number] [place] [address] 27213- 6124 Feb, Nausea and vomiting 787.01 ; Left elbow pain 719.42 ; Anuria 788.5 and Diabetes 250.00 [facility] [id number] [place] [address] 92788- 1177 Feb, [facility] [address] 68451- 5498 Feb, Hypopotassemia 276.8 and Hypokalemia 276.8 [place] [id number] [place] [address] 16461- 8419 Feb, Hypopotassemia 276.8 and Hypokalemia 276.8 [place] [id number] [place] [address] 49578- 1503 Feb, Seborrheic keratoses 702.19 [place] [id number] [place] [address] 65461- 9966 Feb, Hypopotassemia 276.8 and Low magnesium levels 275.2 [facility] [id number] [place] [address] 14296- 0038 January, [facility] [id number] [place] [address] 25411- 0004 January, [facility] [id number] [place] [address] 51417- 4408 January, [facility] [id number] [place] [address] 50708- 5924 January, Scalp lesion 709.9 [facility] [id number] [place] [address] 59484- 1283 January, [facility] [address] [facility] [id number] [address]- 7780 Dec, Tear of medial cartilage or meniscus of knee, current 836.0 and 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 [facility] [address] [facility] [id number] [place] [address]- 8226 Dec, [facility] [address] [facility] [id number], [place] [address]- 0648 Dec, [facility] [address] 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 [facility] [id number] [address]- 4159 14 Dec, 2014 [facility] [address] [place] [address]- 4549 Dec, [facility] [id number], [place] [address]- 8963 Nov, [facility] [id number] [place] [address]- 1983 Nov, [facility] [address], [place] [address]- 7195 Nov, [facility] [id number], [place] [address]- 0538 Nov, [facility] [id number], [place] [address]- 9477 Nov, [facility] [address] [facility] [id number] [place] 7658 Nov, [facility] [address] [facility] [id number], [place] [address]- 4925 Nov, [facility] [address] [facility] [id number] [place] 2469 Nov, [facility] [id number] [place] [address]- 7132 Nov, 2014 [facility] [place] [facility] [address] [id number] [place] [address]- 3116 Nov, 2014 [facility] [place] [facility] [address] [id number] [place] [address]- 5018 Nov, 2014 [facility] [place] [facility] [address] [facility] [id number] [place] [address]- 7314 Nov, 2014 [facility] [place] [facility] [address] [id number] [place] [address]- 8639 Oct, 2014 [facility] [place] [facility] [address] [id number] [place] [address]- 2928 Oct, 2014 [facility] [place] [facility] [address] [facility] [id number] [place] [address]- 9387 Oct, 2014 [facility] [place] [facility] [address] [facility] [id number] [place] [address]- 7243 Oct, 2014 [facility] [place] [facility] [address] [facility] [id number] [place] [address]- 2867 Oct, 2014 [facility] [place] [facility] [id number] [place] [address]- 7213 Oct, 2014 [facility] [place] [facility] [address] [facility] [id number] [place] [address]- 5987 Oct, 2014 [facility] [place] [facility] [address] [facility] [id number] [place] [address]- 4626 Oct, 2014 [facility] [place] [facility] [address] [id number] [place] [address]- 7743 Oct, [facility] [place] [facility] [address] [id number] [place] [address]- 2682 Sep, [facility] [place] [facility] [address] [facility] [id number] [place] [address]- 0149 Sep, [facility] [place] [facility] [address] [facility] [id number] [place] [address]- 1957 Sep, [facility] [place] [facility] [address] [id number] [place] [address]- 7750 Sep, [facility] [place] [facility] [address] [id number] [place] [address]- 8455 Sep, [facility] [place] [facility] [address] [id number] [place] [address]- 8934 Sep, [facility] [place] [facility] [address] [id number] [place] [address]- 1085 Sep, [facility] [place] [facility] [address] [id number] [place] [address]- 4238 Sep, [facility] [place] [facility] [address] [id number] [place] [address]- 9477 Sep, [facility] [place] [facility] [address] [id number] [place] [address]- 0596 Sep, [facility] [place] [facility] [address] [id number] [place] [address]- 6219 Sep, [facility] [place] [facility] [address] [id number] [place] [address]- 3955 Sep, [facility] [place] [facility] [address] [id number], [place] [address]- 3730 Sep, [facility] [place] [facility] [address] [id number], [place] [address]- 8367 Sep, [facility] [place] [facility] [address] [id number], [place] [address]- 6143 Sep, [facility] [place] [facility] [address] [id number] [place] [address]- 5474 Sep, [facility] [place] [facility] [address] [id number], [place] [address]- 2954 Aug, [facility] [place] [facility] [address] [id number] [place] [address]- 6117 Aug, [facility] [place] [facility] [address] [id number] [place] [address]- 3308 Aug, [facility] [address] [id number] [place] [address]- 5468 Aug, [facility] [address] [id number] [place] [address]- 7725 Aug, [facility] [address] [id number] [place] [address]- 7142 Aug, [facility] [address] [id number] [place] [address]- 8052 Aug, [facility] [address] [id number] [place] [address]- 3522 Aug, [facility] [address] [id number] [place] [address]- 6362 Aug, [facility] [address] [id number] [place] [address]- 4770 Aug, [facility] [address] [id number] [place] [address]- 9808 Aug, [facility] [address] [place] [id number] Aug, [facility] [address] [id number] [place] [address]- 7633 Aug, [facility] [address] [id number] [place] [address]- 8228 Aug, [facility] [address] [id number] [place] [address]- 8475 Aug, [facility] [address] [id number] [place] [address]- 8463 Aug, [facility] [address] [id number] [place] [address]- 6206 Aug, [facility] [address] [id number] [place] [address]- 3394 Aug, [facility] [address] [id number] [place] [address]- 5545 Aug, [facility] [place] [facility] [address] [id number] [place] [address]- 7914 Aug, [facility] [place] [facility] [address] [id number] [place] [address]- 2587 Aug, [facility] [place] [facility] [address] [id number] [place] [address]- 9424 Aug, [facility] [place] [facility] [address] [id number] [place] [address]- 6527 Aug, [facility] [place] [facility] [address] [id number] [place] [address]- 2152 Aug, [facility] [place] [facility] [address] [id number] [place] [address]- 9617 Aug, [facility] [place] [facility] [address] [id number] [place] [address]- 6960 Aug, [facility] [place] [facility] [address] [id number] [place] [address]- 7122 Aug, [facility] [place] [facility] [address] [id number] [place] [address]- 6629 Aug, [facility] [place] [facility] [address] [id number] [place] [address]- 1973 Aug, [facility] [place] [facility] [address] [id number] [place] [address]- 1972 Aug, [facility] [place] [facility] [address] [id number] [place] [address]- 0168 Jul, [facility] [place] [facility] [address] [id number] [place] [address]- 6155 Jul, [facility] [place] [facility] [address] [id number] [place] [address]- 2377 Jul, [facility] [place] [facility] [address] [id number] [place] 7825 Jul, [facility] [place] [facility] [address] [id number] [place] [address]- 1098 Jul, [facility] [place] [facility] [address] [id number] [place] [address]- 7700 Jul, [facility] [place] [facility] [address] [id number] [place] [address]- 7837 Jul, [facility] [place] [facility] [address] [id number] [place] [address]- 6316 Jul, [facility] [place] [facility] [address] [id number] [place] [address]- 9799 Jul, [facility] [place] [facility] [address] [id number] [place] [address]- 3131 Jul, [facility] [place] [facility] [address] [id number] [place] [address]- 1627 Jun, [facility] [place] [facility] [address] [id number] [place] [address]- 4227 Jun, [facility] [place] [facility] [address] [id number] [place] [address]- 0310 Jun, [facility] [place] [facility] [address] [id number], [place] [address]- 7948 Jun, [facility] [place] [facility] [address] [id number], [place] [address]- 5851 Jun, [facility] [place] [facility] [address] [id number], [place] [address]- 3202 Jun, [facility] [place] [facility] [address] [id number] [place] [address]- 3568 Jun, [facility] [place] [facility] [address] [id number], [place] [address]- 5316 Jun, [facility] [place] [facility] [address] [id number] 8771 Jun, [facility] [place] [facility] [address] [id number], [place] [address]- 3415 Jun, [facility] [place] [facility] [address] [id number] [place] [address] 2542 29 Sep, 2013 [facility] [place] [facility] [address] [id number] [place] [address]- 1830 29 Sep, 2013 [facility] [place] [facility] [address] [id number] [place] [address]- 4244 26 Sep, 2013 [facility] [place] [facility] [address] [id number] [place] [address]- 9827 26 Sep, 2013 [facility] [place] [facility] [address] [id number] [place] [address]- 2192 17 Sep, 2013 [facility] [place] [facility] [address] [id number] [place] [address]- 6472 17 Sep, 2013 [facility] [place] [facility] [address] [id number], [place] [address]- 7693 15 May, 2013 [facility] [place] [facility] [address] [id number] [place] [address]- 2543 15 May, 2013 [facility] [place] [facility] [address] [id number] [place] [address]- 7383 15 May, 2013 [facility] [place] [facility] [address] [id number] [place] [address]- 6065 15 Sep, 2013 [facility] [place] [facility] [address] [id number], [place] [address] 2545 10 May, 2013 [facility] [place] [facility] [address] [id number], [place] [address]- 2544 10 Sep, 2013 [facility] [place] [facility] [address] [id number], [place] [address]- 2548 09 Sep, 2013 [facility] [place] [facility] [address] [id number], [place] [address]- 2542 09 Sep, 2013 [facility] [place] [facility] [address] [id number], [place] [address]- 8089 04 Sep, 2013 [facility] [place] [facility] [address] [id number] [place] [address]- 8559 May, [facility] [place] [facility] [address] [id number] [place] [address]- 5617 Apr, [facility] [place] [facility] [address] [id number] [place] [address]- 1025 Apr, [facility] [place] [facility] [address] [id number] [place] [address]- 4938 Apr, [facility] [place] [facility] [address] [id number] [place] [address]- 8141 Apr, [facility] [place] [facility] [address] [id number] [place] [address]- 2747 Apr, [facility] [place] [facility] [address] [id number] [place] [address]- 6727 Apr, [facility] [place] [facility] [address] [id number] [place] [address]- 7002 Apr, [facility] [place] [facility] [address] [id number] [place] [address] Apr, [facility] [place] [facility] [address] [id number] [place] [address] Apr, [facility] [place] [facility] [address] [id number] [place] [address] Apr, [facility] [place] [facility] [address] [id number] [place] [address] Apr, [facility] [place] [facility] [address] [id number] [place] [address] Apr, [facility] [place] [facility] [address] [id number] [place] [address] Apr, [facility] [place] [facility] [address] [id number] [place] [address] Apr, [facility] [place] [facility] [address] [id number] [place] [address] Apr, [facility] [place] [facility] [address] [id number] [place] [address] Mar, [facility] [place] [facility] [address] [id number] [place] [address] Mar, [facility] [place] [facility] [address] [id number] [place] [address] Mar, [facility] [place] [facility] [address] [id number] [place] [address] Mar, [facility] [place] [facility] [address] [id number] [place] [address] Mar, [facility] [place] [facility] [address] [id number] [place] [address] Mar, [facility] [place] [facility] [address] [id number] [place] [address] Mar, [facility] [place] [facility] [address] [id number] [place] [address] Mar, [facility] [place] [facility] [address] [id number] [place] [address] Mar, [facility] [place] [facility] [address] [id number] [place] [address] Mar, [facility] [place] [facility] [address] [id number], [place] [address] Mar, [facility] [place] [facility] [address] [id number], [place] [address] Mar, [facility] [place] [facility] [address] [id number] [place] [address] Mar, [facility] [place] [facility] [address] [id number] [place] [address] Mar, [facility] [place] [facility] [address] [id number] [place] [address] Mar, [facility] [place] [facility] [address] [id number] [place] [address]- [address] Mar, [facility] [place] [facility] [address] [id number] [place] [address] Mar, [facility] [place] [facility] [address] [id number] [place] [address] Mar, [facility] [place] [facility] [address] [id number] [place] [address] Feb, [facility] [place] [facility] [address] [id number] [place] [address] Feb, [facility] [place] [facility] [address] [id number] [place] [address] Feb, [facility] [place] [facility] [address] [id number] [place] [address] Feb, [facility] [place] [facility] [address] [id number] [place] [address] Feb, [facility] [place] [facility] [address] [id number] [place] [address] Feb, [facility] [place] [facility] [address] [id number] [place] [address] Feb, [facility] [place] [facility] [address] [id number] [place] [address] Feb, [facility] [place] [facility] [address] [id number] [place] [address] Feb, [facility] [place] [facility] [address] [id number] [place] [address] Feb, [facility] [place] [facility] [address] [id number] [place] [address] Feb, [facility] [place] [facility] [address] [id number] [place] [address] Feb, [facility] [place] [facility] [address] [id number] [place] [address] Feb, [facility] [place] [facility] [address] [id number] [place] [address] Feb, [facility] [place] [facility] [address] [id number] [place] [address] January, [facility] [place] [facility] [address] [id number] [place] [address] January, [facility] [place] [facility] [address] [id number] [place] [address] January, [facility] [address] [id number] [place] [address] January, [facility] [place] [facility] [address] [id number] [place] [address] January, [facility] [address] [id number] [place] [address] January, [facility] [address] [id number] [place] [address] January, [facility] [place] [facility] [address] [id number] [place] [address] January, [facility] [place] [facility] [address] [id number] [place] [address] January, [facility] [place] [facility] [address] [id number] [place] [address] January, [facility] [place] [facility] [address] [id number] [place] [address]- [address] January, [facility] [place] [facility] [address] [id number] [place] [address] January, [facility] [place] [facility] [address] [id number] [place] [address] January, [facility] [place] [facility] [address] [id number] [place] [address] January, [facility] [place] [facility] [address] [id number] [place] [address]239 Dec, [facility] [place] [facility] [address] [id number] [place] [address] 1298 Dec, [facility] [place] [facility] [address] [id number] [place] [address] 6636 Dec, [facility] [place] [facility] [address] [id number] [place] [address] 8975 Dec, [facility] [place] [facility] [address] [id number] [place] [address] 7512 Dec, [facility] [place] [facility] [address] [id number] [place] [address] 4144 Dec, [facility] [place] [facility] [address] [id number] [place] [address] 4601 Dec, [facility] [place] [facility] [address] [id number] [place] [address]- 4788 Dec, [facility] [place] [facility] [address] [id number] [place] [address] 3610 Dec, [facility] [place] [facility] [address] [id number] [place] [address] 2218 Dec, [facility] [place] [facility] [address] [id number] [place] [address]- 1290 Nov, [facility] [place] [facility] [address] [id number] [place] [address]- 1682 Nov, [facility] [place] [facility] [address] [id number] [place] [address] 0[address] Nov, [facility] [place] [facility] [address] [id number] [place] [address]- 0684 Nov, [facility] [place] [facility] [address] [id number] [place] [address] 1936 Nov, [facility] [place] [facility] [address] [id number] [place] [address]- 2866 Nov, [facility] [place] [facility] [address] [id number] [place] [address]- 5243 Nov, [facility] [place] [facility] [address] [id number] [place] [address]- 2744 Nov, [facility] [place] [facility] [address] [id number] [place] [address]- 3922 Nov, [facility] [place] [facility] [address] [id number] [place] [address]- 4622 Nov, [facility] [place] [facility] [address] [id number] [place] [address]- 4968 Oct, [facility] [place] [facility] [address] [id number] [place] [address]- 2639 Oct, [facility] [place] [facility] [address] [facility] [id number] [place] [address]- 9863 Oct, [facility] [place] [facility] [address] [id number] [place] [address]- 2844 Oct, [facility] [place] [facility] [address] [id number] [place] [address]- 7140 Oct, [facility] [place] [facility] [address] [facility] [id number] [place] [address]- 9591 Oct, [facility] [place] [facility] [address] [facility] [id number] [place] [address]- 4894 Oct, [facility] [place] [facility] [address] [facility] [id number], [place] [address]- 1518 Oct, [facility] [place] [facility] [address] [facility] [id number] [place] [address]- 2513 Oct, [facility] [place] [facility] [address] [id number] [place] [address]- 6935 Oct, [facility] [place] [facility] [address] [facility] [id number] [place] [address]- 4023 Oct, [facility] [place] [facility] [address] [facility] [id number], [place] [address] Oct, [facility] [address] [id number] [place] [address]- 5402 Oct, [facility] [place] [facility] [address] [id number] [place] [address]- 6494 Oct, [facility] [place] [facility] [address] [id number] [place] [address] 6005 Sep, [facility] [place] [facility] [address] [id number] [place] [address]- 2000 Sep, [facility] [place] [facility] [address] [id number] [place] [address]- 1151 Sep, [facility] [place] [facility] [address] [id number] [place] [address]- 2682 Sep, [facility] [place] [facility] [address] [id number] [place] [address]- 3480 Sep, [facility] [place] [facility] [address] [id number] [place] [address]- 3453 Sep, [facility] [place] [facility] [address] [id number] [place] [address]- 6659 Sep, [facility] [place] [facility] [address] [facility] [id number] [place] [address]- 1818 Sep, [facility] [place] [facility] [address] [id number] [place] [address]- 1855 Sep, [facility] [place] [facility] [address] [id number] [place] [address]- 1604 Sep, [facility] [place] [facility] [address] [id number] [place] [address]- 7976 Aug, [facility] [place] [facility] [address] [id number] [place] [address]- 9790 Aug, [facility] [place] [facility] [address] [id number] [place] [address]- 2739 Jul, [facility] [place] [facility] [address] [id number] [place] [address]- 7941 Jul, [facility] [place] [facility] [address] [id number] [place] [address]- 2278 Jul, [facility] [place] [facility] [address] [id number] [place] [address]- 7453 Jul, [facility] [place] [facility] [address] [id number] [place] [address]- 7873 Jul, [facility] [place] [facility] [address] [id number] [place] [address]- 8653 Jul, [facility] [place] [facility] [address] [id number] [place] [address]- 5413 Jul, [facility] [place] [facility] [address] [id number] [place] [address]- 8651 Jul, [facility] [place] [facility] [address] [id number] [place] [address]- 9557 Jul, [facility] [place] [facility] [address] [id number] [place] [address]- 9575 Jul, [facility] [place] [facility] [address] [id number] [place] [address]- 7557 Jul, [facility] [place] [facility] [address] [id number] [place] [address]- 9459 Jul, [facility] [place] [facility] [address] [id number] [place] [address]- 9277 Jul, [facility] [place] [facility] [address] [id number] [place] [address]- 6806 Jul, [facility] [place] [facility] [address] [id number] [place] [address]- 0444 Jul, [facility] [place] [facility] [address] [id number] [place] [address]- 5433 Jul, [facility] [place] [facility] [address] [id number] [place] [address]- 6616 Jul, [facility] [place] [facility] [address] [id number] [place] [address] 2543 Jul, [facility] [place] [facility] [address] [id number] [place] [address]- 2546 Jul, [facility] [place] [facility] [address] [id number] [place] [address] 2542 Jun, 2012 [facility] [place] [facility] [address] [id number] [place] [address]- 254 Jun, 2012 [facility] [place] [facility] [address] [id number] [place] [address]- 4136 Jun, 2012 [facility] [place] [facility] [address] [id number] [place] [address]- 0116 Jun, 2012 [facility] [place] [facility] [address] [id number] [place] [address]- 6491 Jun, 2012 [facility] [place] [facility] [address] [id number], [place] [address]- 0628 Jun, 2012 [facility] [place] [facility] [address] [id number], [place] [address]- 3246 Jun, 2012 [facility] [place] [facility] [address] [id number], [place] [address]- 4610 Jun, [facility] [place] [facility] [address] [id number], [place] [address]- 1544 Jun, [facility] [place] [facility] [address] [id number], [place] [address]- 2540 Jun, [facility] [place] [facility] [address] [id number] [place] [address]- 2543 Jun, [facility] [place] [facility] [address] [id number], [place] [address] 2547 May, [facility] [place] [facility] [address] [id number], [place] [address]- 2546 May, [facility] [place] [facility] [address] [id number] [place] [address]- 7124 19 May, 2012 [facility] [address] [id number] [place] [address]- 2506 17 May, 2012 [facility] [address] [id number] [place] [address] 2546 11 May, 2013 [facility] [address] [id number] [place] [address]- 4829 10 May, 2013 [facility] [address] [id number] [place] [address] 2543 09 May, 2013 [facility] [address] [id number] [place] [address]- 5986 05 May, 2013 [facility] [address] [id number] [place] [address]- 3425 Apr, [facility] [address] [id number] [place] [address]- 3077 Apr, [facility] [address] [id number] [place] [address]- 6905 Apr, [facility] [place] [facility] [address] [id number] [place] [address]- 1576 Apr, [facility] [address] [id number] [place] [address]- 5344 Apr, [facility] [place] [facility] [address] [id number] [place] [address]- 8279 Mar, [facility] [place] [facility] [address] [id number] [place] [address]- 9904 Mar, [facility] [place] [facility] [address] [id number] [place] [address]- 3808 Mar, [facility] [place] [facility] [address] [id number] [place] [address]- 5324 Mar, [facility] [place] [facility] [address] [id number] [place] [address]- 0192 Mar, [facility] [place] [facility] [address] [id number] [place] [address]- 6338 Mar, [facility] [place] [facility] [address] [id number] [place] [address]- 1666 Mar, [facility] [place] [facility] [address] [id number] [place] [address]- 6426 Mar, [facility] [place] [facility] [address] [id number] [place] [address]- 2929 Feb, [facility] [address] [id number] [place] [address]- 9346 Feb, [facility] [place] [facility] [address] [id number] [place] [address]- 4815 January, [facility] [address] [id number] [place] [address]- 6322 January, [facility] [address] [id number] [place] [address]- 0989 Dec, [facility] [place] [facility] [address] [id number] [place] [address]- 0374 Dec, [facility] [place] [facility] [address] [id number] [place] [address]- 7337 Nov, [facility] [place] [facility] [address] [id number] [place] [address]- 9831 Nov, [facility] [place] [facility] [address] [id number] [place] [address]- 7349 Nov, [facility] [place] [facility] [address] [id number] [place] [address]- 3703 Nov, [facility] [place] [facility] [address] [id number] [place] [address]- 4832 Oct, [facility] [place] [facility] [address] [id number] [place] [address]- 8750 Oct, [facility] [place] [facility] [address] [id number], [place] [address]- 3735 26 Oct, 2012 [facility] [address] [id number] [place] [address]- 6846 26 Oct, 2012 [facility] [address] [id number] [place] [address]- 0176 16 Oct, 2012 [facility] [address] [id number] [place] [address]- 4146 14 Oct, 2012 [facility] [address] [id number] [place] [address] 2541 08 Oct, 2012 [facility] [address] [id number] [place] [address]- 6089 07 Oct, 2012 [facility] [address] [id number] [place] [address]- 6565 03 Oct, 2012 [facility] [address] [id number] [place] [address]- 3840 30 Sep, 2012 [facility] [address] [id number] [place] [address]- 2949 29 Sep, 2012 [facility] [address] [id number] [place] [address]- 2969 23 Sep, 2012 [facility] [address] [id number] [place] [address]- 3077 Sep, [facility] [address] [id number] [place] [address]- 1194 17 Sep, 2012 [facility] [address] [id number] [place] [address]- 3136 Sep, [facility] [place] [facility] [address] [id number] [place] [address]- 5056 09 Sep, 2012 [facility] [place] [facility] [address] [id number] [place] [address]- 7611 08 Sep, 2012 [facility] [address] [id number] [place] [address]- 1218 Aug, [facility] [place] [facility] [address] [id number] [place] [address]- 2218 Aug, [facility] [place] [facility] [address] [id number] [place] [address]- 4835 Aug, [facility] [place] [facility] [address] [id number] [place] [address]- 0124 Aug, [facility] [place] [facility] [address] [id number] [place] [address]- 1939 Aug, [facility] [place] [facility] [address] [id number] [place] [address]- 1990 Aug, [facility] [place] [facility] [address] [id number] [place] [address]- 6695 Aug, [facility] [place] [facility] [address] [id number] [place] [address]- 0268 Aug, [facility] [place] [facility] [address] [id number], [place] [address]- 5056 Jul, [facility] [place] [facility] [address] [id number] [place] [address]- 1954 Jul, [facility] [place] [facility] [address] [facility] [id number], [place] [address]- 1734 Jul, [facility] [place] [facility] [address] [facility] [id number], [place] [address]- 9651 Jul, [facility] [place] [facility] [address] [id number], [place] [address]- 8192 Jul, [facility] [place] [facility] [address] [id number], [place] [address]- 3025 Jul, [facility] [place] [facility] [address] [id number], [place] [address]- 7297 Jun, [facility] [place] [facility] [address] [id number], [place] [address]- 7740 Jun, [facility] [place] [facility] [address] [id number], [place] [address]- 1088 Jun, [facility] [place] [facility] [address] [id number] [place] [address]- 8907 23 Jun, 2012 [facility] [place] [facility] [address] [id number] [place] [address]- 5162 Jun, [facility] [place] [facility] [address] [id number] [place] [address]- 8646 19 Jun, 2012 [facility] [place] [facility] [address] [id number] [place] [address]- 7189 19 Jun, 2012 [facility] [place] [facility] [address] [id number] [place] [address]- 3729 10 Jun, 2012 [facility] [place] [facility] [address] [id number] [place] [address]- 2900 10 Jun, 2012 [facility] [place] [facility] [address] [facility] [id number] [place] [address]- 3929 26 May, 2012 [facility] [place] [facility] [address] [id number] [place] [address]- 0182 24 May, 2012 [facility] [place] [facility] [address] [facility] [id number] [place] [address]- 5588 18 May, 2012 [facility] [place] [facility] [address] [facility] [id number] [place] [address]- 9670 30 Apr, 2012 [facility] [place] [facility] [address] [id number] [place] [address]- 7994 29 Apr, 2012 [facility] [place] [facility] [address] [id number] [place] [address]- 8500 18 Apr, 2012 [facility] [place] [facility] [address] [id number] [place] [address]- 5588 14 Apr, 2012 [facility] [place] [facility] [address] [facility] [id number] [place] [address]- 6266 10 Apr, 2012 [facility] [place] [facility] [address] [facility] [id number] [place] [address]- 2857 07 Apr, 2012 [facility] [place] [facility] [address] [id number] [place] [address]- 0484 Mar, [facility] [place] [facility] [address] [id number] [place] [address]- 5812 Mar, [facility] [place] [facility] [address] [id number] [place] [address]- 2546 Mar, [facility] [place] [facility] [address] [id number] [place] [address]- 1846 Mar, [facility] [place] [facility] [address] [id number] [place] [address]- 3900 Feb, [facility] [place] [facility] [address] [id number] [place] [address]- 8122 Feb, [facility] [place] [facility] [address] [id number] [place] [address]- 6637 Feb, [facility] [place] [facility] [address] [id number] [place] [address]- 8285 Feb, [facility] [place] [facility] [address] [id number] [place] [address]- 8948 Feb, [facility] [place] [facility] [address] [id number] [place] [address]- 6646 January, [facility] [place] [facility] [address] [id number] [place] [address]- 7995 January, [facility] [place] [facility] [address] [id number] [place] [address]- 1855 January, [facility] [place] [facility] [address] [id number] [place] [address]- 5156 January, [facility] [place] [facility] [address] [id number] [place] [address]- 8006 January, [facility] [place] [facility] [address] [id number] [place] [address]- 2546 January, [facility] [place] [facility] [address] [id number] [place] [address]- 2440 24 Dec, 2011 [facility] [place] [facility] [address] [id number] [place] [address]- 8370 24 Dec, 2011 [facility] [place] [facility] [address] [id number] [place] [address]- 3098 17 Dec, 2011 [facility] [place] [facility] [address] [id number] [place] [address]58 09 Dec, 2011 [facility] [place] [facility] [address] [id number] [place] [address]- 2719 06 Dec, 2011 [facility] [place] [facility] [address] [id number] [place] [address]- 6177 27 Nov, 2011 [facility] [place] [facility] [address] [id number] [place] [address]- 4726 14 Nov, 2011 [facility] [place] [facility] [address] [id number] [place] [address]- 8280 Nov, [facility] [place] [facility] [address] [id number] [place] [address]- 7924 07 Nov, 2011 [facility] [place] [facility] [address] [id number] [place] [address]- 6334 29 Oct, 2011 [facility] [place] [facility] [address] [id number] [place] [address]- 0605 28 Oct, 2011 [facility] [place] [facility] [address] [id number] [place] [address]- 6055 24 Oct, 2011 [facility] [place] [facility] [address] [id number] [place] [address]- 5938 13 Oct, 2011 [facility] [place] [facility] [address] [id number] [place] [address]- 3555 08 Oct, 2011 [facility] [place] [facility] [address] [id number] [place] [address]- 9987 31 Sep, 2011 [facility] [place] [facility] [address] [id number] [place] [address]- 4909 30 Sep, 2011 [facility] [place] [facility] [address] [id number] [place] [address]- 2839 Sep, [facility] [place] [facility] [address] [id number] [place] [address]- 6801 Sep, [facility] [place] [facility] [address] [id number] [place] [address]- 3223 Sep, [facility] [address] [id number] [place] [address] Sep, [facility] [place] [facility] [address] [id number] [place] [address] Aug, [facility] [place] [facility] [address] [id number] [place] [address] Aug, [facility] [place] [facility] [address] [id number] [place] [address] Aug, [facility] [place] [facility] [address] [id number] [place] [address] Jul, [facility] [place] [facility] [address] [id number] [place] [address] Jul, [facility] [place] [facility] [address] [id number] [place] [address] Jul, [facility] [place] [facility] [address] [id number] [place] [address] Jul, [facility] [place] [facility] [address] [id number] [place] [address] Jun, [facility] [place] [facility] [address] [id number] [place] [address] Jun, [facility] [place] [facility] [address] [id number] [place] [address] Jun, [facility] [place] [facility] [address] [id number] [place] [address] Jun, [facility] [place] [facility] [address] [id number] [place] [address] Jun, [facility] [place] [facility] [address] [id number] [place] [address] 10 Jun, 2011 [facility] [place] [facility] [address] [id number] [place] [address] 11 Mar, 2011 [facility] [place] [facility] [address] [id number] [place] [address] 18 Dec, 2010 [facility] [place] [facility] [address] [id number] [place] [address] 11 Dec, 2010 [facility] [place] [facility] [address] [id number] [place] [address] 18 Nov, 2010 [facility] [place] [facility] [address] [id number] [place] [address] 16 Nov, 2010 [facility] [place] [facility] [address] [id number] [place] [address] 10 Sep, 2010 [facility] [place] [facility] [address] [id number] [place] [address] 31 Aug, 2010 [facility] [place] [facility] [address] [id number] [place] [address]- [address] 29 Aug, 2010 [facility] [place] [facility] [address] [id number] [place] [address] 29 Aug, 2010 [facility] [place] [facility] [address] [id number] [place] [address] 29 Aug, 2010 [facility] [place] [facility] [address] [id number], [place] [address] 27 Aug, 2010 [facility] [place] [facility] [address] [id number] [place] [address] 14 Aug, 2010 [facility] [place] [facility] [address] [id number] [place] [address] 08 Aug, 2010 [facility] [place] [facility] [address] [id number] [place] [address] 08 Aug, 2010 [facility] [place] [facility] [address] [id number], [place] [address] 07 Aug, 2010 [facility] [place] [facility] [address] [id number] [place] [address] 134[address] Aug, [facility] [place] [facility] [address] [facility] [id number], [place] [address] Aug, [facility] [place] [facility] [address] [facility] [id number] [place] [address]26 Aug, [facility] [place] [facility] [address] [id number], [place] [address] Jul, [facility] [place] [facility] [address] [facility] [id number] [place] [address], [place] [address] Jul, [facility] [place] [facility] [address] [facility] [id number] [place] [address] Jul, [facility] [place] [facility] [address] [facility] [id number] [place] [address] Jul, [facility] [place] [facility] [address] [facility] [id number], [place] [address] Jul, [facility] [place] [facility] [address] [facility] [id number], [place] [address] Jul, [facility] [place] [facility] [address] [facility] [id number], [place] [address] Jun, [facility] [place] [facility] [address] [facility] [id number], [place] [address] Jun, [facility] [place] [facility] [address] [facility] [id number], [place] [address] Jun, [facility] [place] [facility] [address] [facility] [id number], [place] [address] Jun, [facility] [place] [facility] [address] [facility] [id number], [place] [address]- [address] 16 Apr, 2010 [facility] [place] [facility] [address] [facility] [id number], [place] [address] Mar, [facility] [place] [facility] [address] [id number] [place] [address] 17 Feb, 2010 [facility] [place] [facility] [address] [id number] [place] [address] January, [facility] [place] [facility] [address] [id number] [place] [address] 2546 15 Dec, 2009 [facility] [place] [facility] [address] [id number] [place] [address] Nov, [facility] [place] [facility] [address] [id number] [place] [address] 3980 Aug, [facility] [place] [facility] [address] [id number] [place] [address] 5560 Aug, [facility] [place] [facility] [address] [id number] [place] [address] 409[address] Aug, [facility] [place] [facility] [address] [id number] [place] [address] Jul, [facility] [place] [facility] [address] [id number] [place] [address] Jul, [facility] [place] [facility] [address] [id number] [place] [address] 68[address] Jul, [facility] [place] [facility] [address] [facility] [id number] [place] [address]- 0860 30 Jun, 2009 [facility] [place] [facility] [address] [id number] [place] [address]- 4866 29 Jun, 2009 [facility] [place] [facility] [address] [id number] [place] [address] 2549 Jun, [facility] [place] [facility] [address] [id number] [place] [address] 22 Jun, 2009 [facility] [place] [facility] [address] [id number] [place] [address] Jun, [facility] [place] [facility] [address] [id number] [place] [id number] Jun, [facility] [address] [facility] [id number], [place] [address] Apr, [facility] [address] [facility] [id number], [place] [address] Apr, [facility] [address] [facility] [id number], [place] [address] Feb, [facility] [address] [id number] [address] January, [facility] [address] [facility] [id number], [place] [address] Dec, IMMUNIZATIONS No Known Immunizations SOCIAL HISTORY Never Assessed REASON FOR VISIT f/u, Depression. PLAN OF CARE Activity Details Follow Up 1 Week Reason:Depression. VITAL SIGNS MEDICATIONS Unknown Medications RESULTS No Results PROCEDURES Procedure Date Ordered Result Body Site [facility] VISIT MENTAL HEALTH ESTAB PT Nov 20, 2017 Psychotherapy, patient &/family, 45 minutes, established patient Nov 20, 2017 visit needs to be added to the same day medical Nov 20, 2017 INSTRUCTIONS MEDICATIONS ADMINISTERED No Known Medications MEDICAL (GENERAL) HISTORY Type Description Date Medical History type II diabetes Medical History coronary artery disease stress test 01/5015 Medical History chronic obstructive pulmonary disease (COPD) Medical History gastroesophageal reflux disease (GERD) Medical History acute renal failure Medical History erectile dysfunction Medical History hyperlipidemia Medical History obesity Medical History skin cancer-basal cell R confucianist (removed) Medical History Arthritis Medical History degenerative [...] 2009 Surgical History colonoscopy 2009 ([place]), 2013 ([place]) Surgical History heart 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 04/2014 Surgical History carotid US 05/2014 Surgical History resection of skin cancer from Right confucianist Surgical History Biopsy of Lung Bilateral/Left lung lymph node 09/2016 Surgical History Bone Marrow Biopsy Surgical History port in the right chest wall 12/2016 Hospitalization History [facility] low potassium, low magnesium, chest painina 01/2015 Hospitalization History inability to urinate 09/16/15 Hospitalization History [facility] early Hospitalization History hyperkalemia 10/2017 Hospitalization History fluid in lung
--- OUTSIDE RECORDS SUMMARY | 2018-08-08 14:39 | XMS REPORT ---
Author Author ROSELINE LUIS Organization [facility] Address [address] [place] [address] Care Team Providers Care Attendant [employer] Name Role Phone ROSELINE LUIS Unavailable PROBLEMS Type Condition ICD9-CM Code TFR68-PP Code Onset Dates Condition Status SNOMED Code Problem Chronic lymphocytic leukemia C91.10 Active 65140256 Problem Insomnia, unspecified type G47.00 Active 356447643 Problem Lymphocytosis D72.820 Active 94855674 Problem Anxiety F41.9 Active 70916165 Problem Eye exam abnormal R93.8 Active 634541000 Problem Morbid obesity E66.01 Active 318805281 Problem Diabetic polyneuropathy associated with type 2 diabetes mellitus E11.42 Active 78404497 Problem Essential hypertension I10 Active 74991508 Problem Falling R29.6 Active 879975895 Problem 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 Active 206344133 Problem Cough R05 Active 94596140 Problem Dysuria R30.0 Active 41190974 Problem Eustachian tube dysfunction, unspecified laterality H69.80 Active 76633154 Problem Bilateral primary osteoarthritis of knee M17.0 Active 133573845 Problem Polyneuropathy associated with underlying disease G63 Active 805683877 Problem Anemia of chronic illness D63.8 Active 695412176 Problem Retinal edema H35.81 Active 5902701 Problem DM neuro manif type II E11.49 Active 76398533 Problem Diabetes E11.9 Active 96010113 Problem Hypokalemia E87.6 Active 70654315 Problem Benign prostatic hyperplasia with lower urinary tract symptoms, unspecified morphology N40.1 Active 310703883 Problem Reactive airway disease J45.909 Active 733244735665 Problem Bipolar I disorder, most recent episode (or current) mixed, moderate F31.62 Active 13003065 Problem Chronic pain G89.29 Active 73516849 Problem Leukocytosis D72.829 Active 989191389 ALLERGIES No Information ENCOUNTERS Encounter Location Date Diagnosis [facility] [id number] [address] Dec, [facility] [id number] [place] [address] 83664- 8612 Dec, [facility] [id number] [place] [address] 09992- 1850 Dec, [facility] [id number] [place] [address] 55763- 2268 Nov, Bipolar I disorder, most recent episode (or current) mixed, moderate F31.62 [facility] [id number] [place] [address] 71660- 4636 Nov, Chronic pain G89.29 [facility] [id number] [place] [address] 52013- 8600 Nov, Bipolar I disorder, most recent episode (or current) mixed, moderate F31.62 [facility] [id number] [place] [address] 28653- 3022 Nov, Hypokalemia E87.6 [facility] [id number] [place] [address] 21184- 2109 Nov, Bipolar I disorder, most recent episode (or current) mixed, moderate F31.62 [facility] [id number] [place] [address] 54381- 8398 Oct, Chronic pain G89.29 [facility] [id number] [place] [address] 37532- 6311 Oct, BMI 50.0-59.9, adult Z68.43 and Bipolar I disorder, most recent episode (or current) mixed, moderate F31.62 [facility] [id number] [place] [address] 42871- 2077 Oct, Bipolar I disorder, most recent episode (or current) mixed, moderate F31.62 [facility] [id number] [place] [address] 24891- 7017 Oct, [facility] [id number] [place] [address] 47322- 3243 Oct, Hypokalemia E87.6 [facility] [address] 87742- 4045 Oct, DM neuro manif type II E11.49 [facility] [address] 41491- 5986 Oct, Bipolar I disorder, most recent episode (or current) mixed, moderate F31.62 [facility] [address] 60556- 8580 Oct, Bipolar I disorder, most recent episode (or current) mixed, moderate F31.62 [facility] [id number] [place] [address] 75520- 9247 Oct, Hyperkalemia E87.5 ; Falling R29.6 ; BMI 50.0-59.9, adult Z68.43 and Acute left ankle pain M25.572 [facility] [address] 44785- 2364 Oct, DM neuro manif type II E11.49 [facility] [id number] [place] [address] 71179- 3510 Oct, [facility] [id number] [place] [address] 32222- 4004 Sep, Chronic pain G89.29 [facility] [id number] [place] [address] 98422- 3395 Sep, [facility] [address] 16332- 2093 Sep, Bilateral primary osteoarthritis of knee M17.0 [facility] [id number] [place] [address] 19912- 6781 Sep, Generalized edema R60.1 [facility] [address] 31208- 7961 Sep, Bipolar I disorder, most recent episode (or current) mixed, moderate F31.62 [facility] [id number] [place] [address] 80225- 9043 15 Sep, 2017 Hypoxia R09.02 ; Other hypervolemia E87.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 ; Anemia of chronic illness D63.8 and BMI 50.0- 59.9, adult Z68.43 [facility] [id number] [place] [address] 54653- 8537 Sep, [facility] [address] 71387- 1595 Sep, Bipolar I disorder, most recent episode (or current) mixed, moderate F31.62 [facility] [address] 22249- 0790 Aug, Chronic pain G89.29 [facility] [id number] [place] [address] 40627- 4367 Aug, Generalized edema R60.1 [facility] [id number] [place] [address] 86222- 3842 Aug, [facility] [id number] [place] [address] 74119- 9518 Aug, [facility] [id number] [place] [address] 08760- 6707 14 Aug, 2017 Bipolar I disorder, most recent episode (or current) mixed, moderate F31.62 [facility] [id number] [place] [address] 36062- 8048 07 Aug, 2017 Bipolar I disorder, most recent episode (or current) mixed, moderate F31.62 [facility] [id number] [place] [address] 63805- 8165 04 Aug, 2017 Chronic pain G89.29 [facility] [address] [address] 2931 Jul, Bipolar I disorder, most recent episode (or current) mixed, moderate F31.62 [facility] [id number] [place] [address] 38498- 4763 Jul, Bipolar I disorder, most recent episode (or current) mixed, moderate F31.62 and BMI 60.0-69.9, adult Z68.44 [facility] [id number] [place] [address] 681514- 5618 Jul, Bipolar I disorder, most recent episode (or current) mixed, moderate F31.62 [facility] [id number] [place] [address] 82416- 7751 Jul, Chronic pain G89.29 [facility] [id number] [place] [address] 76153- 2432 Jul, Bipolar I disorder, most recent episode (or current) mixed, moderate F31.62 [facility] [id number] [place] [address] 01609- 4683 Jun, Polyneuropathy associated with underlying disease G63 and Diabetes E11.9 [facility] [id number] [place] [address] 42678- 5307 Jun, Bipolar I disorder, most recent episode (or current) mixed, moderate F31.62 [facility] [id number] [place] [address] 16818- 3457 Jun, Chronic pain G89.29 [facility] [id number] [place] [address] 81307- 7232 May, Bipolar I disorder, most recent episode (or current) mixed, moderate F31.62 [facility] [address] [place] [address] 56847- 4455 May, Bipolar I disorder, most recent episode (or current) mixed, moderate F31.62 [facility] [id number] [place] [address] 38337- 5803 20 May, 2017 Diabetic polyneuropathy associated with type 2 diabetes mellitus E11.42 [facility] [id number] [place] [address] 461037- 6760 18 May, 2017 Bipolar I disorder, most recent episode (or current) mixed, moderate F31.62 [facility] [id number] [place] [address] 50864- 7093 13 May, 2017 Bipolar I disorder, most recent episode (or current) mixed, moderate F31.62 [facility] [id number] [place] [address] 37105- 1024 12 May, 2017 Chronic pain G89.29 [facility] [id number] [place] [address] 28616- 2338 30 Apr, 2017 Bipolar I disorder, most recent episode (or current) mixed, moderate F31.62 [facility] [id number] [place] [address] 84116- 3051 Apr, [facility] [id number] [place] [address] 14145- 5289 Apr, Chronic pain G89.29 and DM neuro manif type II E11.49 [facility] [id number] [place] [address] 02472- 1430 Apr, [facility] [id number] [place] [address] 85739- 8338 16 Apr, 2017 Bipolar I disorder, most recent episode (or current) mixed, moderate F31.62 [facility] [id number] [place] [address] 94714- 9996 14 Apr, 2017 Chronic pain G89.29 [facility] [id number] [place] [address] 07889- 9091 03 Apr, 2017 Iliotibial band syndrome, left M76.32 [facility] [id number] [place] [address] 74595- 1074 Apr, Bipolar I disorder, most recent episode (or current) mixed, moderate F31.62 [facility] [address] [address]- 0552 Mar, Bipolar I disorder, most recent episode (or current) mixed, moderate F31.62 [facility] [id number] [place] [address] 41179- 7439 Mar, Bipolar I disorder, most recent episode (or current) mixed, moderate F31.62 [facility] [id number] [place] [address] 12416- 4029 Mar, [facility] [id number] [place] [address] 74860- 9688 Mar, Bipolar I disorder, most recent episode (or current) mixed, moderate F31.62 [facility] [id number] [place] [address] 69662- 9546 Mar, Chronic pain G89.29 [facility] [id number] [place] [address] 23061- 4328 Mar, Bipolar I disorder, most recent episode (or current) mixed, moderate F31.62 [facility] [id number] [place] [address] 66313- 0165 Mar, Bipolar I disorder, most recent episode (or current) mixed, moderate F31.62 [facility] [id number] [place] [address] 55391- 4801 Mar, Acute pain of left knee M25.562 ; Left hip pain M25.552 ; Generalized edema R60.1 and Tongue swelling R22.0 [facility] [id number] [place] [address] 34598- 6502 Mar, [facility] [id number] [place] [address] 05878- 5795 Feb, Chronic pain G89.29 [facility] [id number] [place] [address] 03548- 2080 Feb, Diabetes E11.9 [facility] [address] [address]- 5701 January, Chronic pain G89.29 [facility] [id number] [place] [address] 85759- 2056 January, [facility] [id number] [place] [address] 50973- 1757 January, Bipolar I disorder, most recent episode (or current) mixed, moderate F31.62 [facility] [id number] [place] [address] 80318- 8566 Dec, Bipolar I disorder, most recent episode (or current) mixed, moderate F31.62 [facility] [id number] [place] [address] 59191- 5340 Dec, Chronic pain G89.29 [facility] [id number] [place] [address] 26415- 9659 Dec, Bipolar I disorder, most recent episode (or current) mixed, moderate F31.62 [facility] [address] [place] [address] 87526- 1361 Dec, Diabetes E11.9 ; Essential hypertension I10 ; Chronic pain G89.29 and Morbid obesity E66.01 [facility] [id number] [place] [address] 26602- 6825 Dec, [facility] [id number] [place] [address] 70793- 2986 Dec, Bipolar I disorder, most recent episode (or current) mixed, moderate F31.62 [facility] [id number] [place] [address] 98818- 3825 Dec, Bipolar I disorder, most recent episode (or current) mixed, moderate F31.62 [facility] [id number] [place] [address] 96108- 6714 Nov, Chronic pain G89.29 [facility] [id number] [place] [address] 40774- 0092 Nov, Bipolar I disorder, most recent episode (or current) mixed, moderate F31.62 [facility] [address] [address]- 6602 Nov, [facility] [address] [address]- 1702 Nov, Bipolar I disorder, most recent episode (or current) mixed, moderate F31.62 [facility] [address] [place] [address] 92522- 0614 Nov, Bipolar I disorder, most recent episode (or current) mixed, moderate F31.62 [facility] [id number] [place] [address] 39250- 8937 Nov, [facility] [id number] [place] [address] 60070- 8880 Nov, [facility] [id number] [place] [address] 98069- 6301 Nov, [facility] [address] [place] [address] 10000- 5883 Oct, Chronic pain G89.29 [facility] [address] [place] [address] 40955- 4639 Oct, Bipolar I disorder, most recent episode (or current) mixed, moderate F31.62 [facility] [address] [address]- 9092 Oct, [facility] [address] [place] [address] 66037- 6382 Oct, Chronic pain G89.29 ; Diabetes E11.9 ; Anxiety F41.9 and 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 [facility] [address] [address]- 9869 Oct, [facility] [id number] [place] [address]- 2546 Oct, Diabetes E11.9 [facility] [address] 9126 Oct, Bipolar I disorder, most recent episode (or current) mixed, moderate F31.62 [facility] [address] [place] [address] 21174- 9106 Sep, Chronic pain G89.29 [facility] [id number] [place] [address] 27041- 2616 Sep, Chronic pain G89.29 [facility] [id number] [place] [address] 575083- 1506 Aug, Chronic pain G89.29 [facility] [id number] [place] [address] 55564- 2616 Jul, [facility] [id number] [place] [address] 22080- 8678 Jul, Diabetes E11.9 [facility] [address] [place] [address] 76891- 4381 Jul, Chronic pain G89.29 [facility] [address] [place] [address] 15670- 6562 Jul, Bipolar I disorder, most recent episode (or current) mixed, moderate F31.62 [facility] [address] [address]- 6189 Jun, Bipolar I disorder, most recent episode (or current) mixed, moderate F31.62 [facility] [address] [address]- 2446 Jun, [facility] [id number] [place] [address] 05232- 7429 Jun, Bipolar I disorder, most recent episode (or current) mixed, moderate F31.62 [facility] [address] [address]- 5647 May, Insomnia, unspecified type G47.00 [facility] [id number] [place] [address] 87111- 5159 May, Bipolar I disorder, most recent episode (or current) mixed, moderate F31.62 [facility] [id number] [place] [address] 31274- 0229 14 May, 2016 [facility] [address] 46782- 6389 May, Bipolar I disorder, most recent episode (or current) mixed, moderate F31.62 [facility] [id number] [place] [address] 19099- 1698 May, Diabetes E11.9 and Essential hypertension I10 [facility] [id number] [place] [address] 13691- 9188 Apr, Chronic pain G89.29 [facility] [id number] [place] [address] 11170- 9469 Apr, Bipolar I disorder, most recent episode (or current) mixed, moderate F31.62 [facility] [id number] [place] [address] 21208- 9757 Apr, [facility] [id number] [place] [address] 22857- 7562 Apr, [facility] [id number] [place] [address] 54418- 8963 Mar, Chronic pain G89.29 ; Headache, unspecified headache type R51 ; Neuropathy G62.9 ; Pain of right hip joint M25.551 and Essential hypertension I10 [facility] [id number] [place] [address] 01257- 7949 Mar, Chronic pain G89.29 [facility] [id number] [place] [address] 61262- 4725 Mar, Bipolar I disorder, most recent episode (or current) mixed, moderate F31.62 [facility] [id number] [place] [address] 52519- 9523 Feb, Bipolar I disorder, most recent episode (or current) mixed, moderate F31.62 and Insomnia, unspecified type G47.00 [facility] [id number] [place] [address] 77107- 5948 Feb, Chronic pain G89.29 [facility] [id number] [place] [address] 36861- 4647 Feb, Bipolar I disorder, most recent episode (or current) mixed, moderate F31.62 [facility] [id number] [place] [address] 32406- 7160 January, Bipolar I disorder, most recent episode (or current) mixed, moderate F31.62 [facility] [id number] [place] [address] 78354- 0440 January, Chronic pain G89.29 [facility] [id number] [place] [address] 39015- 3018 January, Chronic pain G89.29 and Essential hypertension I10 [facility] [id number] [place] [address] 53532- 2574 January, Bipolar I disorder, most recent episode (or current) mixed, moderate F31.62 [facility] [id number] [place] [address] 52725- 9366 Dec, [facility] [id number] [place] [address] 60825- 3438 Dec, [facility] [id number] [place] [address] 74776- 1950 Dec, [facility] [id number] [place] [address] 27799- 0113 Dec, [facility] [id number] [place] [address] 24765- 6585 Nov, Reactive airway disease J45.909 [facility] [id number] [place] [address] 99454- 3934 Nov, [facility] [address] 29538- 4977 Nov, [facility] [id number] [place] [address] 24934- 7666 Nov, [facility] [address] 60219- 6601 Nov, [facility] [id number] [place] [address] 46995- 8910 Nov, Onychomycosis B35.1 ; Hammertoe M20.40 ; [place] or callus L84 and DM neuro manif type II E11.49 [facility] [id number] [place] [address] 76533- 2488 Nov, Chronic pain G89.29 ; Leukocytosis D72.829 and Diabetes E11.9 [facility] [id number] [place] [address] 59363- 2645 Nov, [facility] [id number] [place] [address] 53790- 8368 Oct, Bronchitis J40 [facility] [id number] [place] [address] 07816- 8805 Oct, [facility] [id number] [place] [address] 73490- 8539 Oct, [facility] [id number] [place] [address] 44539- 3116 Oct, Mastoiditis, unspecified laterality H70.90 and Type 2 diabetes mellitus with complication E11.8 [facility] [id number] [place] [address] 18937- 8157 Sep, [facility] [id number] [place] [address] 35425- 3837 Sep, Dysuria R30.0 ; Cough R05 ; Benign prostatic hyperplasia with lower urinary tract symptoms, unspecified morphology N40.1 ; Hypokalemia E87.6 and Eustachian tube dysfunction, unspecified laterality H69.80 [facility] [id number] [place] [address] 68684- 3083 Sep, Moderate mixed bipolar I disorder F31.62 [facility] [id number] [place] [address] 94699- 9873 Sep, Hypokalemia E87.6 [facility] [address] 44978- 3525 Sep, [facility] [address] 01230- 5431 Sep, Upper respiratory tract infection, unspecified type J06.9 [facility] [id number] [place] [address] [phone] Aug, [facility] [address] [address] Aug, Dysuria R30.0 [facility] [id number] [place] [address] [phone] Aug, [facility] [id number] [place] [address] [id number] Jul, [facility] [id number] [place] [address] [phone] Jul, [facility] [id number] [place] [address] [phone] Jul, [facility] [id number] [place] [address] [phone] Jul, [facility] [id number] [place] [address] [phone] Jun, [facility] [id number] [place] [address] [id number] Jun, [facility] [address] [address] [address] Jun, [facility] [id number] [place] [address] [phone] May, [facility] [facility] [id number] [place] [address] 64416- 3594 May, Bipolar I disorder, most recent episode (or current) mixed, moderate 296.62 [facility] [id number] [place] [address] 34459- 1704 May, [facility] [id number] [place] [address] 42292- 6794 May, Bipolar I disorder, most recent episode (or current) mixed, moderate 296.62 and Major depressive disorder, recurrent episode, severe, specified as with psychotic behavior 296.34 [facility] [id number] [place] [address] 11826- 5859 May, Bipolar I disorder, most recent episode (or current) mixed, moderate 296.62 [facility] [id number] [place] [address] 62455- 7511 May, [facility] [id number] [place] [address] 77452- 6553 Apr, [facility] [id number] [place] [address] 93425- 1093 Apr, [facility] [id number] [place] [address] 37072- 7694 Apr, Unspecified disorder of kidney and ureter 593.9 and Diabetes mellitus type 2, uncontrolled 250.02 [facility] [id number] [place] [address] 50051- 1390 Apr, [facility] [id number] [place] [address] 67295- 0016 Apr, [facility] [id number] [place] [address] 36243- 8665 Apr, [facility] [address] [address] 9901 Apr, [facility] [id number] [place] [address] 06747- 5873 Apr, Diabetes mellitus type II, uncontrolled 250.02 [facility] [address] [address]- 7077 Apr, [facility] [id number] [place] [address] 45780- 0596 Mar, [facility] [id number] [place] [address] 17402- 8635 Mar, [facility] [id number] [place] [address] 76006- 1160 Mar, [facility] [id number] [place] [address] 05431- 7820 Mar, Major depressive disorder, recurrent episode, severe, specified as with psychotic behavior 296.34 and Bipolar I disorder, most recent episode (or current) mixed, moderate 296.62 [facility] [id number] [place] [address] 79636- 7893 Mar, Diabetes 250.00 ; Anuria 788.5 ; Nausea and vomiting 787.01 and Diarrhea 787.91 [facility] [address] [address]- 9715 Mar, Diabetes 250.00 [facility] [id number] [place] [address] 75697- 4189 Mar, [facility] [address] [address]- 6455 Mar, Diabetes 250.00 [facility] [id number] [place] [address] 17984- 3169 Mar, [facility] [address] [address]- 4891 Mar, [facility] [id number] [address]- 4536 Mar, [facility] [id number] [place] [address] 61794- 6425 Mar, [facility] [id number] [place] [address] 24506- 2160 Mar, Bipolar I disorder, most recent episode (or current) mixed, moderate 296.62 and Major depressive disorder, recurrent episode, severe, specified as with psychotic behavior 296.34 [facility] [id number] [place] [address] 46636- 7241 Mar, Magnesium deficiency 275.2 ; Hypokalemia 276.8 ; Nausea & vomiting 787.01 and Diabetes mellitus type 2, uncontrolled 250.02 [facility] [id number] [place] [address] 15860- 6377 Feb, [facility] [id number] [place] [address] 91678- 3052 Feb, Bipolar I disorder, most recent episode (or current) mixed, moderate 296.62 [facility] [id number] [place] [address] 82488- 6985 Feb, Nausea and vomiting 787.01 ; Left elbow pain 719.42 ; Anuria 788.5 and Diabetes 250.00 [facility] [id number] [place] [address] 39482- 4227 Feb, [facility] [id number] [place] [address] 08739- 7436 Feb, Hypopotassemia 276.8 and Hypokalemia 276.8 [facility] [id number] [place] [address] 41431- 0280 Feb, Hypopotassemia 276.8 and Hypokalemia 276.8 [facility] [id number] [place] [address] 35046- 5629 Feb, Seborrheic keratoses 702.19 [facility] [id number] [address]- 4353 Feb, Hypopotassemia 276.8 and Low magnesium levels 275.2 [facility] [address] [address]- 3559 January, [facility] [address] [address]- 2185 January, [facility] [id number] [place] [address] 65571- 9652 January, [facility] [id number] [place] [address] 39935- 5610 January, Scalp lesion 709.9 [facility] [id number] [place] [address] 50085- 3171 January, [facility] [id number] [place] [address] 15116- 9546 Dec, Tear of medial cartilage or meniscus of knee, current 836.0 and 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 [facility] [address] [address]- 5339 Dec, [facility] [address] [address]- 0750 Dec, [facility] [address] [address]- 8302 Dec, Squamous cell carcinoma, 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 [facility] [address] [address]- 1305 Dec, [facility] [address] [address]- 5526 Dec, [facility] [address] 6325 Nov, [facility] [address] [address]- 5158 Nov, [facility] [id number] [address]- 0629 Nov, [facility] [place] [facility] [address] [id number] [place] [address]- 8368 Nov, [facility] [place] [facility] [address] [id number] [place] [address]- 1310 Nov, 2014 [facility] [place] [facility] [address] [id number] [place] [address]- 1234 Nov, 2014 [facility] [place] [facility] [address] [id number] [place] [address]- 6068 Nov, [facility] [place] [facility] [address] [id number] [place] [address]- 8273 Nov, [facility] [place] [facility] [address] [id number] [place] [address]- 5012 Nov, [facility] [place] [facility] [address] [id number] [place] [address]- 8445 Nov, [facility] [place] [facility] [address] [id number] [place] [address]- 7217 Nov, [facility] [place] [facility] [address] [id number] [place] [address]- 1975 Nov, [facility] [place] [facility] [address] [facility] [id number] [place] [address]- 7057 Oct, 2014 [facility] [place] [facility] [address] [id number] [place] [address]- 8956 Oct, 2014 [facility] [place] [facility] [address] [id number] [place] [address]- 3825 Oct, 2014 [facility] [place] [facility] [address] [id number] [place] [address]- 4144 Oct, 2014 [facility] [place] [facility] [address] [facility] [id number] [place] [address]- 0566 Oct, 2014 [facility] [place] [facility] [address] [id number] [place] [address]- 5987 Oct, [facility] [place] [facility] [address] [id number] [place] [address]- 3854 Oct, [facility] [place] [facility] [address] [id number] [place] [address]- 3671 Oct, [facility] [place] [facility] [address] [id number] [place] [address]- 4686 Oct, [facility] [place] [facility] [address] [id number] [place] [address]- 5874 Sep, [facility] [place] [facility] [address] [id number] [place] [address]- 4242 Sep, [facility] [place] [facility] [address] [id number] [place] [address]- 4586 Sep, [facility] [place] [facility] [address] [id number] [place] [address]- 9840 Sep, [facility] [place] [facility] [address] [id number] [place] [address]- 3550 Sep, [facility] [place] [facility] [address] [id number] [place] [address]- 5778 Sep, [facility] [place] [facility] [address] [id number] [place] [address]- 5862 Sep, [facility] [place] [facility] [address] [id number] [address]- 8397 Sep, [facility] [place] [facility] [address] [id number] [address]- 3197 Sep, [facility] [place] [facility] [address] [id number] [place] [address]- 2721 Sep, [facility] [place] [facility] [address] [id number] [place] [address]- 9107 Sep, [facility] [place] [facility] [address] [id number] [place] [address]- 4116 Sep, [facility] [place] [facility] [address] [id number] [place] [address]- 2157 Sep, [facility] [address] [id number] [place] [address]- 6944 Sep, [facility] [address] [id number] [place] [address]- 8969 Sep, [facility] [address] [id number] [place] [address]- 7823 Sep, [facility] [address] [id number] [place] [address]- 1138 Aug, [facility] [address] [id number] [place] [address]- 1214 Aug, [facility] [address] [id number] [place] [address]- 7014 Aug, [facility] [address] [id number] [place] [address]- 7410 Aug, [facility] [address] [id number] [place] [address]- 5559 Aug, [facility] [address] [id number] [place] [address]- 7432 Aug, [facility] [address] [id number] [place] [address]- 2725 Aug, [facility] [address] [id number] [place] [address]- 0745 Aug, [facility] [address] [id number] [place] [address]- 1759 Aug, [facility] [address] [id number] [place] [address]- 8839 Aug, [facility] [address] [id number] [place] [address]- 1701 Aug, [facility] [address] [place] [id number] 10 Aug, 2014 [facility] [place] [facility] [address] [id number] [place] [address]- 0504 10 Aug, 2014 [facility] [place] [facility] [address] [id number] [place] [address]- 6406 Aug, [facility] [place] [facility] [address] [id number] [place] [address]- 3046 Aug, [facility] [place] [facility] [address] [id number] [place] [address]- 5556 Aug, [facility] [place] [facility] [address] [id number] [place] [address]- 5234 Aug, [facility] [place] [facility] [address] [id number] [place] [address]- 9845 Aug, [facility] [place] [facility] [address] [id number] [place] [address]- 7789 Aug, [facility] [place] [facility] [address] [id number] [place] [address]- 6490 Aug, [facility] [place] [facility] [address] [id number] [place] [address]- 0506 Aug, [facility] [place] [facility] [address] [id number] [place] [address]- 1633 Aug, [facility] [place] [facility] [address] [id number] [place] [address]- 2362 Aug, [facility] [place] [facility] [address] [id number] [place] [address]- 8877 Aug, [facility] [place] [facility] [address] [id number] [place] [address]- 0866 Aug, [facility] [place] [facility] [address] [id number] [place] [address]- 0146 Aug, [facility] [place] [facility] [address] [id number] [place] 8856 Aug, [facility] [place] [facility] [address] [id number] [place] [address]- 4769 Aug, [facility] [place] [facility] [address] [id number] [place] 5631 Aug, [facility] [place] [facility] [address] [id number] [place] [address]- 7199 Aug, [facility] [place] [facility] [address] [id number] [place] 7644 Jul, [facility] [place] [facility] [address] [id number] [place] [address]- 5617 Jul, [facility] [place] [facility] [address] [id number] [place] [address]- 3457 Jul, [facility] [place] [facility] [address] [id number] [place] [address]- 6945 Jul, [facility] [place] [facility] [address] [id number] [place] [address]- 2328 Jul, [facility] [place] [facility] [address] [id number] [place] [address]- 5009 Jul, [facility] [place] [facility] [address] [id number] [place] [address]- 7279 Jul, [facility] [place] [facility] [address] [id number] [place] [address]- 0500 Jul, [facility] [place] [facility] [address] [id number] [address]- 5681 Jul, [facility] [place] [facility] [address] [id number] [address]- 8409 Jul, [facility] [place] [facility] [address] [id number] [place] [address]- 5730 Jun, [facility] [place] [facility] [address] [id number] [place] [address]- 7930 Jun, [facility] [place] [facility] [address] [id number] [address]- 5420 Jun, [facility] [place] [facility] [address] [id number] [place] [address]- 1578 16 Jun, 2014 [facility] [place] [facility] [address] [id number] [place] [address]- 3241 15 Jun, 2014 [facility] [place] [facility] [address] [id number] [place] [address]- 5796 15 Jun, 2014 [facility] [place] [facility] [address] [id number] [place] [address]- 3671 05 Jun, 2014 [facility] [place] [facility] [address] [id number] [place] [address]- 5291 05 Jun, 2014 [facility] [place] [facility] [address] [id number] [place] [address]- 7058 Jun, [facility] [place] [facility] [address] [id number] [place] [address]- 6917 Jun, [facility] [place] [facility] [address] [id number] [place] [address]- 0544 29 Sep, 2013 [facility] [place] [facility] [address] [id number] [place] [address]- 2542 29 Sep, 2013 [facility] [place] [facility] [address] [id number] [place] [address] 2547 26 Sep, 2013 [facility] [place] [facility] [address] [id number] [place] [address]- 2547 26 Sep, 2013 [facility] [place] [facility] [address] [id number] [place] [address] 2546 17 Sep, 2013 [facility] [place] [facility] [address] [id number] [place] [address] 254 17 Sep, 2013 [facility] [place] [facility] [address] [id number] [place] [address] 2541 15 Sep, 2013 [facility] [place] [facility] [address] [id number] [place] [address]- 2546 15 Sep, 2013 [facility] [place] [facility] [address] [id number] [place] [address]- 254 15 Sep, 2013 [facility] [place] [facility] [address] [id number] [place] [address]- 5265 15 May, 2013 [facility] [place] [facility] [address] [id number] [place] [address]- 8168 10 May, 2013 [facility] [place] [facility] [address] [id number] [place] [address]- 9923 10 May, 2013 [facility] [place] [facility] [address] [id number] [place] [address]- 6784 May, 2013 [facility] [place] [facility] [address] [id number] [place] [address]- 4199 May, 2013 [facility] [place] [facility] [address] [id number] [place] [address]- 3342 May, 2013 [facility] [place] [facility] [address] [id number] [place] [address]- 1869 May, 2013 [facility] [place] [facility] [address] [id number] [place] [address]- 4344 Apr, [facility] [place] [facility] [address] [id number] [place] [address]- 2613 Apr, [facility] [place] [facility] [address] [id number] [place] [address]- 4328 Apr, [facility] [place] [facility] [address] [id number] [place] [address]- 3161 Apr, [facility] [place] [facility] [address] [id number] [place] [address]- 9146 Apr, [facility] [place] [facility] [address] [id number] [place] [address]- 1368 Apr, [facility] [place] [facility] [address] [id number] [place] [address]- 6630 Apr, [facility] [place] [facility] [address] [id number] [place] [address]- 3806 Apr, [facility] [place] [facility] [address] [id number] [place] [address]- 1176 Apr, [facility] [place] [facility] [address] [id number] [place] [address]- 6858 Apr, [facility] [place] [facility] [address] [id number] [place] [address]- 6714 Apr, [facility] [place] [facility] [address] [id number] [place] [address]- 2436 Apr, [facility] [place] [facility] [address] [id number] [place] [address]- 0455 Apr, [facility] [place] [facility] [address] [id number] [place] [address]- 7215 Apr, [facility] [place] [facility] [address] [id number] [place] [address]- 3111 Apr, [facility] [place] [facility] [address] [id number] [place] [address]- 7144 Mar, [facility] [place] [facility] [address] [id number] [place] [address]- 9943 Mar, [facility] [place] [facility] [address] [id number] [place] [address]- 1281 Mar, [facility] [place] [facility] [address] [id number] [place] [address]- 8380 Mar, [facility] [place] [facility] [address] [id number] [place] [address]- 3551 Mar, [facility] [place] [facility] [address] [id number] [place] [address]- 8202 Mar, [facility] [place] [facility] [address] [id number] [place] [address]- 3648 Mar, [facility] [place] [facility] [address] [id number] [place] [address]- 3024 Mar, [facility] [place] [facility] [address] [id number] [place] [address]- 7017 Mar, [facility] [place] [facility] [address] [id number] [place] [address]- 3119 Mar, 2013 [facility] [place] [facility] [address] [id number] [place] [address]- 3347 Mar, 2013 [facility] [place] [facility] [address] [id number] [place] 2357 Mar, 2013 [facility] [place] [facility] [address] [id number] [place] [address]- 5369 Mar, 2013 [facility] [place] [facility] [address] [id number] [place] [address]- 1158 Mar, 2013 [facility] [place] [facility] [address] [id number] [place] [address]- 6220 Mar, 2013 [facility] [place] [facility] [address] [id number] [place] [address]- 6800 Mar, 2013 [facility] [place] [facility] [address] [id number] [place] [address]- 4504 Mar, 2013 [facility] [place] [facility] [address] [id number] [place] [address]- 8580 Mar, [facility] [place] [facility] [address] [id number] [place] [address]- 0860 Feb, [facility] [place] [facility] [address] [id number] [place] [address]- 5032 Feb, [facility] [place] [facility] [address] [id number] [place] [address]- 3826 Feb, [facility] [place] [facility] [address] [id number] [place] [address] Feb, [facility] [place] [facility] [address] [id number] [place] [address] Feb, [facility] [place] [facility] [address] [id number] [place] [address] Feb, [facility] [place] [facility] [address] [id number] [place] [address] Feb, [facility] [place] [facility] [address] [id number] [place] [address] Feb, [facility] [place] [facility] [address] [id number] [place] [address] Feb, [facility] [place] [facility] [address] [id number] [place] [address] Feb, [facility] [place] [facility] [address] [id number] [place] [address] Feb, [facility] [place] [facility] [address] [id number] [place] [address] Feb, [facility] [place] [facility] [address] [id number] [place] [address] Feb, [facility] [place] [facility] [address] [id number] [place] [address] Feb, [facility] [place] [facility] [address] [id number] [place] [address] January, [facility] [place] [facility] [address] [id number] [place] [address] January, [facility] [place] [facility] [address] [id number] [place] [address] January, [facility] [place] [facility] [address] [id number] [place] [address] January, [facility] [place] [facility] [address] [id number] [place] [address] January, [facility] [place] [facility] [address] [id number] [place] [address] January, [facility] [place] [facility] [address] [id number] [place] [address] January, [facility] [place] [facility] [address] [id number] [place] [address] January, [facility] [place] [address] [id number] [place] [address] January, [facility] [address] [id number] [place] [address] January, [facility] [place] [address] [id number] [place] [address] January, [facility] [address] [id number] [place] [address]- [address] January, [facility] [address] [id number] [place] [address]- [address] January, [facility] [place] [facility] [address] [id number] [place] [address]68 January, [facility] [address] [id number] [place] [address] Dec, [facility] [address] [id number] [place] [address] Dec, [facility] [address] [id number] [place] [address] Dec, [facility] [address] [id number] [place] [address] Dec, [facility] [address] [id number] [place] [address] Dec, [facility] [address] [id number] [place] [address] Dec, [facility] [address] [id number] [place] [address] Dec, [facility] [address] [id number] [place] [address] Dec, [facility] [address] [id number] [place] [address] Dec, [facility] [address] [id number] [place] [address] Dec, [facility] [address] [id number] [place] [address] Nov, [facility] [place] [address] [id number] [place] [address]- [address] Nov, [facility] [address] [id number] [place] [address]- [address] Nov, [facility] [address] [id number] [place] [address] Nov, [facility] [address] [id number] [place] [address] Nov, [facility] [address] [id number] [place] [address]- [address] Nov, [facility] [address] [id number] [place] [address]- [address] Nov, [facility] [address] [id number] [place] [address]- [address] Nov, [facility] [address] [id number] [place] [address]- [address] Nov, [facility] [address] [id number] [place] [address] Nov, [facility] [address] [id number] [place] [address]- [address] Oct, [facility] [address] [id number] [place] [address]- [address] Oct, [facility] [address] [id number] [place] [address]- [address] Oct, [facility] [address] [id number] [place] [address]- [address] Oct, [facility] [address] [id number] [place] [address]- [address] Oct, [facility] [address] [id number] [place] [address]- 37[address] Oct, [facility] [address] [id number] [place] [address]- [address] Oct, [facility] [address] [id number] [place] [address]- [address] Oct, [facility] [address] [id number] [place] [address] Oct, [facility] [facility] [address] [id number] [place] [address] Oct, [facility] [facility] [address] [id number] [place] [address] Oct, [facility] [place] [facility] [address] [id number] [place] [address] 6[address] Oct, [facility] [place] [address] [id number] [place] [address] 4005 Oct, [facility] [place] [address] [id number] [place] [address] 0809 Oct, [facility] [place] [facility] [address] [id number] [place] [address] 1896 Sep, [facility] [place] [address] [id number] [place] [address]- 8455 Sep, [facility] [place] [facility] [address] [id number] [place] [address]- 3034 Sep, [facility] [place] [address] [id number] [place] [address] 3000 Sep, [facility] [place] [facility] [address] [id number] [place] [address]- 4085 Sep, [facility] [place] [address] [id number] [place] [address]- 5881 Sep, [facility] [place] [address] [id number] [place] [address]- 1829 Sep, [facility] [place] [address] [id number] [place] [address]- 4991 14 Sep, 2013 [facility] [address] [id number] [place] [address]- 3736 08 Sep, 2013 [facility] [address] [id number] [place] [address]- 4540 08 Sep, 2013 [facility] [address] [id number] [place] [address]- 7[address] Aug, [facility] [address] [id number] [place] [address]- 2104 Aug, [facility] [address] [id number] [place] [address]- 1523 Jul, [facility] [address] [id number] [place] [address]- 5304 Jul, [facility] [place] [address] [id number] [place] [address]- 9102 Jul, [facility] [address] [id number] [place] [address]- 7532 Jul, [facility] [address] [id number] [place] [address]- 5765 Jul, [facility] [address] [id number] [place] [address]- 0376 Jul, [facility] [address] [id number][place] [address]- 9805 Jul, [facility] [address] [id number] [place] [address]- 4625 Jul, [facility] [address] [id number] [place] [address]- 3047 Jul, [facility] [address] [id number][place] [address]- 2657 Jul, [facility] [address] [id number][place] [address]- 5769 Jul, [facility] [address] [id number] [place] [address]- 0931 Jul, [facility] [address] [id number][place] [address]- 8885 Jul, 2012 [facility] [address] [id number] [place] [address]- 8164 Jul, 2012 [facility] [address] [id number][place] [address]- 6[address] Jul, 2012 [facility] [address] [id number] [place] [address]- 5252 Jul, [facility] [address] [id number][place] [address]- 1568 Jul, [facility] [address] [facility] [id number], [place] [address]- 6645 Jul, [facility] [address] [id number][place] [address]- 8835 Jul, [facility] [address] [id number][place] [address]- 2356 Jun, 2012 [facility] [address] [id number], [place] [address]- 7009 Jun, 2012 [facility] [address] [id number], [place] [address]- 7229 16 Jun, 2012 [facility] [address] [id number][place] [address]- 5197 16 Jun, 2012 [facility] [address] [id number][place] [address]- 4157 16 Jun, 2012 [facility] [address] [id number] [address]- 2685 16 Jun, 2012 [facility] [address] [id number][place] [address]- 8381 10 Jun, 2012 [facility] [address] [id number] [place] [address]- 9191 10 Jun, 2013 [facility] [address] [id number] [place] [address]- 2038 Jun, [facility] [address] [id number] [place] [address]- 8756 Jun, [facility] [address] [id number] [place] [address]- 9132 Jun, [facility] [address] [id number] [place] [address]- 6509 26 May, 2012 [facility] [address] [id number] [place] [address]- 4083 25 May, 2012 [facility] [address] [id number] [place] [address]- 3104 19 May, 2012 [facility] [address] [id number] [place] [address]- 8682 17 May, 2012 [facility] [address] [id number] [place] [address]- 3046 11 May, 2013 [facility] [address] [id number] [place] [address]- 1419 May, 2012 [facility] [address] [id number] [place] [address]- 1470 May, [facility] [address] [id number] [place] [address]- 2023 05 May, 2012 [facility] [address] [id number] [place] [address]- 8475 Apr, [facility] [address] [id number] [place] [address]- 9494 Apr, [facility] [address] [id number] [place] [address]- 8209 Apr, [facility] [address] [id number] [place] [address]- 9504 Apr, [facility] [address] [id number] [place] [address]- 9127 Apr, [facility] [address] [id number] [place] [address]- 5487 Mar, [facility] [address] [id number] [place] [address]- 4599 Mar, [facility] [address] [id number] [place] [address]- 7556 Mar, [facility] [address] [id number] [place] [address]- 9367 Mar, [facility] [address] [id number] [place] [address]- 0792 Mar, [facility] [address] [id number] [place] [address]- 4387 Mar, [facility] [address] [id number] [place] [address]- 9995 Mar, [facility] [address] [id number] [place] [address]- 8687 Mar, [facility] [address] [id number] [place] [address]- 3034 Feb, [facility] [address] [id number] [place] [address]- 9215 Feb, [facility] [address] [id number] [place] [address]- 7036 January, [facility] [address] [id number] [place] [address]- 9008 January, [facility] [address] [id number] [place] [address]- 1922 Dec, [facility] [address] [id number] [place] [address]- 5300 Dec, [facility] [address] [id number] [place] [address]- 7728 23 Nov, 2012 [facility] [address] [id number] [place] [address]- 3836 Nov, [facility] [address] [id number] [place] [address]- 6586 Nov, [facility] [address] [id number] [place] [address]- 2778 Nov, [facility] [address] [id number] [place] [address]- 5503 27 Oct, 2012 [facility] [address] [id number] [place] [address]- 6407 26 Oct, 2012 [facility] [address] [id number] [place] [address]- 0122 26 Oct, 2012 [facility] [address] [id number] [place] [address]- 4726 26 Oct, 2012 [facility] [address] [id number] [place] [address]- 3319 16 Oct, 2012 [facility] [address] [id number] [place] [address]- 2529 14 Oct, 2012 [facility] [address] [id number] [place] [address]- 1143 08 Oct, 2012 [facility] [address] [id number] [place] [address] 2541 07 Oct, 2012 [facility] [address] [id number] [place] [address] 2541 03 Oct, 2012 [facility] [address] [id number] [place] [address]- 0035 30 Sep, 2012 [facility] [address] [id number] [place] [address] 254 Sep, [facility] [address] [id number] [place] [address]- 9171 Sep, [facility] [address] [id number] [place] [address]- 9938 Sep, [facility] [address] [id number] [place] [address]- 5429 17 Sep, 2012 [facility] [address] [id number] [place] [address]- 3337 Sep, [facility] [address] [id number] [place] [address]- 0514 Sep, [facility] [address] [id number] [place] [address]- 1988 Sep, [facility] [address] [id number] [place] [address]- 4911 Aug, [facility] [address] [id number] [place] [address]- 5098 Aug, [facility] [address] [id number] [place] [address]- 3476 Aug, [facility] [address] [id number] [place] [address]- 4094 Aug, [facility] [address] [id number] [place] [address]- 7418 Aug, [facility] [address] [id number] [place] [address]- 6413 Aug, [facility] [address] [id number][place] [address]- 5288 Aug, [facility] [address] [id number] [place] [address]- 0157 Aug, [facility] [address] [id number] [place] [address]- 1175 Jul, [facility] [address] [id number] [place] [address]- 0927 Jul, [facility] [address] [id number] [place] [address]- 1782 Jul, [facility] [address] [id number] [place] [address]- 8437 Jul, [facility] [address] [id number] [place] [address]- 0071 Jul, [facility] [address] [id number] [place] [address]- 7421 Jul, [facility] [address] [id number] [place] [address]- 0196 Jun, [facility] [address] [id number] [place] [address]- 1104 Jun, [facility] [address] [id number] [place] [address]- 3397 Jun, [facility] [address] [id number] [place] [address]- 9398 Jun, [facility] [address] [id number] [place] [address]- 3551 Jun, [facility] [address] [id number] [place] [address]- 1276 Jun, [facility] [address] [facility] [id number] [place] [address]- 1057 Jun, [facility] [address] [id number] [place] [address]- 5667 10 Jun, 2012 [facility] [address] [id number] [place] [address]- 1590 10 Jun, 2012 [facility] [address] [id number] [place] [address]- 0018 26 May, 2012 [facility] [address] [id number] [place] [address]- 6916 24 Sep2011 [facility] [address] [id number] [address]- 4820 18 May, 2012 [facility] [address] [id number] [place] [address]- 6121 Apr, [facility] [address] [id number] [place] [address]- 8970 Apr, [facility] [address] [id number] [place] [address]- 7556 Apr, [facility] [address] [id number] [place] [address]- 3329 Apr, [facility] [address] [id number] [place] [address]- 5081 Apr, [facility] [address] [id number] [place] [address]- 7904 Apr, [facility] [address] [id number] [place] [address]- 2382 Mar, [facility] [address] [id number] [place] [address]- 5426 Mar, [facility] [address] [id number] [place] [address]- 6696 Mar, [facility] [address] [id number] [place] [address]- 0492 Mar, [facility] [address] [id number] [place] [address]- 2762 Feb, [facility] [address] [id number] [place] [address]- 6876 Feb, [facility] [address] [id number] [place] [address]- 9118 Feb, [facility] [address] [id number] [place] [address]- 9802 Feb, [facility] [address] [id number] [place] [address]- 1179 Feb, [facility] [address] [id number] [place] [address]- 6076 January, [facility] [address] [id number] [place] [address]83 January, [facility] [address] [id number] [place] [address]- 6870 January, [facility] [address] [id number] [place] [address]- 2202 January, [facility] [address] [id number] [place] [address]- 2297 January, [facility] [address] [id number] [place] [address]- 9962 January, [facility] [address] [id number] [place] [address]- 6683 Dec, [facility] [address] [id number] [place] [address]- 7288 Dec, [facility] [address] [id number] [place] [address]- 9943 Dec, [facility] [address] [id number] [place] [address]- 2689 Dec, [facility] [address] [id number] [place] [address]- 8642 Dec, [facility] [address] [id number] [place] [address]- 8528 Nov, [facility] [place] [facility] [address] [id number] [place] [address]- 7345 Nov, [facility] [place] [facility] [address] [id number] [place] [address]- 9588 Nov, [facility] [place] [facility] [address] [id number] [place] [address]- 6568 Nov, [facility] [place] [facility] [address] [id number] [place] [address]- 9491 Oct, [facility] [place] [facility] [address] [id number] [place] [address]- 3629 28 Oct, 2011 [facility] [place] [facility] [address] [id number] [place] [address]- 9036 24 Oct, 2011 [facility] [place] [facility] [address] [id number] [place] [address] 2546 13 Oct, 2011 [facility] [place] [facility] [address] [id number] [place] [address] 2546 08 Oct, 2011 [facility] [place] [facility] [address] [id number] [place] [address] 2544 Sep, [facility] [place] [facility] [address] [id number] [place] [address]- 1231 Sep, [facility] [place] [facility] [address] [id number] [place] [address]- 1127 Sep, [facility] [place] [facility] [address] [id number] [place] [address]- 1035 Sep, [facility] [place] [facility] [address] [id number] [place] [address]- 2965 Sep, [facility] [place] [facility] [address] [id number] [place] [address]- 3556 Sep, [facility] [address] [id number] [place] [address]- 6998 Aug, [facility] [place] [facility] [address] [id number] [place] [address]- 7096 Aug, [facility] [place] [facility] [address] [id number] [place] [address] 2546 Aug, [facility] [place] [facility] [address] [id number] [place] [address]- 4366 Jul, [facility] [place] [facility] [address] [id number] [place] [address]- 2546 Jul, [facility] [place] [facility] [address] [id number] [place] [address]- 2221 Jul, [facility] [place] [facility] [address] [id number] [place] [address]- 2947 Jul, [facility] [place] [facility] [address] [id number] [place] [address]- 8553 Jun, [facility] [place] [facility] [address] [id number] [place] [address]- 5256 Jun, [facility] [place] [facility] [address] [id number] [place] [address]- 7347 Jun, [facility] [place] [facility] [address] [id number] [place] [address]- 2213 Jun, [facility] [place] [facility] [address] [id number] [place] [address]- 1333 Jun, [facility] [place] [facility] [address] [id number] [place] [address]- 6403 Jun, [facility] [place] [facility] [address] [id number] [place] [address]- 5456 Mar, [facility] [place] [facility] [address] [id number] [place] [address]- 1243 Dec, [facility] [place] [facility] [address] [id number] [place] [address]- 2610 Dec, [facility] [place] [facility] [address] [id number], [place] [address]- 3987 Nov, [facility] [place] [facility] [address] [id number], [place] [address]- 0393 16 Nov, 2010 [facility] [place] [facility] [address] [id number] [place] [address]- 8583 Sep, [facility] [place] [facility] [address] [id number] [place] [address]- 0300 Aug, [facility] [place] [facility] [address] [id number] [place] [address]- 6900 Aug, [facility] [place] [facility] [address] [id number] [place] [address]- 1466 29 Aug, 2010 [facility] [address] [id number] [place] [address] 2546 29 Aug, 2010 [facility] [place] [facility] [address] [id number] [place] [address] 2546 27 Aug, 2010 [facility] [address] [id number] [place] [address] 2546 14 Aug, 2010 [facility] [place] [facility] [address] [id number] [place] [address] 2546 08 Aug, 2010 [facility] [address] [id number] [place] [address] 2546 08 Aug, 2010 [facility] [place] [facility] [address] [id number] [place] [address] 2546 07 Aug, 2010 [facility] [address] [facility] [id number] [place] [address] 2546 06 Aug, 2010 [facility] [place] [facility] [address] [id number] [place] [address] 2547 06 Aug, 2010 [facility] [place] [facility] [address] [facility] [id number] [place] [address] 2546 Aug, [facility] [place] [facility] [address] [id number] [place] [address] 30 Jul, 2010 [facility] [place] [facility] [address] [id number] [place] [address]46 30 Jul, 2010 [facility] [place] [facility] [address] [id number] [address] 30 Jul, 2010 [facility] [place] [facility] [address] [id number] [place] [address] 17 Jul, 2010 [facility] [place] [facility] [address] [id number] [place] [address]46 08 Jul, 2010 [facility] [place] [facility] [address] [id number] [address] Jul, [facility] [place] [facility] [address] [id number] [place] [address] 24 Jun, 2010 [facility] [address] [id number] [place] [address] Jun, [facility] [place] [facility] [address] [id number] [place] [address] Jun, [facility] [address] [id number] [place] [address], [place] [address] 13 Jun, 2010 [facility] [address] [id number] [place] [address] 16 Apr, 2010 [facility] [address] [id number] [place] [address] Mar, [facility] [address] [id number] [place] [address] Feb, [facility] [address] [id number] [place] [address] January, [facility] [address] [id number] [place] [address] Dec, [facility] [address] [id number] [place] [address] Nov, [facility] [address] [id number] [place] [address] 31 Aug, 2009 [facility] [place] [facility] [address] [id number][place] [address] Aug, [facility] [place] [facility] [address] [id number] [place] 07 Aug, 2009 [facility] [place] [facility] [address] [id number] [place] [address] Jul, [facility] [place] [facility] [address] [id number] [place] [address] 09 Jul, 2009 [facility] [place] [facility] [address] [id number], [place] [address] Jul, [facility] [id number] [address] Jun, [facility] [id number] [address] [address] Jun, [facility] [id number] [address] Jun, [facility] [address] [address] Jun, [facility] [address] [address] Jun, [facility] [address] [address] Jun, [facility] [address] [address] Apr, [facility] [address] [address] Apr, [facility] [address] [address] Feb, [facility] [address] [address] January, [facility] [id number] [address] Dec, IMMUNIZATIONS No Known Immunizations SOCIAL HISTORY Never Assessed REASON FOR VISIT f/u, Depression. PLAN OF CARE Activity Details Follow Up 1 Week Reason:depression VITAL SIGNS MEDICATIONS Unknown Medications RESULTS No Results PROCEDURES Procedure Date Ordered Result Body Site [facility] VISIT MENTAL HEALTH ESTAB PT April 07, 2017 Psychotherapy, patient &/family, 45 minutes, established patient April 07, 2017 INSTRUCTIONS MEDICATIONS ADMINISTERED No Known [...] tunnel release (Left) 2000 Surgical History EGD ([facility]) 2009 Surgical History colonoscopy 2009 ([facility]), 2013 ([place]) Surgical History heart cath: CAD w/ PTCA [...] History inability to urinate 09/16/15 Hospitalization History [facility] mental health early Hospitalization History hyperkalemia 10/2017 Hospitalization History fluid in lung
--- OUTSIDE RECORDS SUMMARY | 2018-08-08 14:41 | XMS REPORT ---
Author Author NOEMI WASHBURN Organization [facility] Address [address] [place] [address] Care Team Providers Care Retinal Surgeon Name Role Phone NOEMI WASHBURN Unavailable PROBLEMS Type Condition ICD9-CM Code TQK10-CY Code Onset Dates Condition Status SNOMED Code Problem Chronic lymphocytic leukemia C91.10 Active 08449646 Problem Insomnia, unspecified type G47.00 Active 623934428 Problem Lymphocytosis D72.820 Active 45832808 Problem Anxiety F41.9 Active 96893771 Problem Eye exam abnormal R93.8 Active 038507132 Problem Morbid obesity E66.01 Active 113613447 Problem Diabetic polyneuropathy associated with type 2 diabetes mellitus E11.42 Active 75690202 Problem Essential hypertension I10 Active 69399000 Problem Falling R29.6 Active 002460682 Problem 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 Active 006889217 Problem Cough R05 Active 39133855 Problem Dysuria R30.0 Active 57471730 Problem Eustachian tube dysfunction, unspecified laterality H69.80 Active 99560716 Problem Bilateral primary osteoarthritis of knee M17.0 Active 215893671 Problem Polyneuropathy associated with underlying disease G63 Active 094416943 Problem Anemia of chronic illness D63.8 Active 750517199 Problem Retinal edema H35.81 Active 9066219 Problem DM neuro manif type II E11.49 Active 38894141 Problem Diabetes E11.9 Active 67567659 Problem Hypokalemia E87.6 Active 65439694 Problem Benign prostatic hyperplasia with lower urinary tract symptoms, unspecified morphology N40.1 Active 215342562 Problem Reactive airway disease J45.909 Active 385839439437 Problem Bipolar I disorder, most recent episode (or current) mixed, moderate F31.62 Active 64520878 Problem Chronic pain G89.29 Active 00074109 Problem Leukocytosis D72.829 Active 267853458 ALLERGIES No Information ENCOUNTERS Encounter Location Date Diagnosis [facility] [address], [place] [address] Dec, [facility] [id number] [place] [address] 84346- 8416 Dec, [facility] [id number] [place] [address] 16673- 4092 Dec, [facility] [id number] [place] [address] 51080- 8780 Nov, Bipolar I disorder, most recent episode (or current) mixed, moderate F31.62 [facility] [id number] [place] [address] 44956- 0131 Nov, Chronic pain G89.29 [facility] [id number] [place] [address] 74872- 9241 Nov, Bipolar I disorder, most recent episode (or current) mixed, moderate F31.62 [facility] [id number] [place] [address] 00874- 0980 Nov, Hypokalemia E87.6 [facility] [id number] [place] [address] 93112- 1792 Nov, Bipolar I disorder, most recent episode (or current) mixed, moderate F31.62 [facility] [id number] [place] [address] 58788- 6774 Oct, Chronic pain G89.29 [facility] [id number] [place] [address] 15237- 6540 Oct, BMI 50.0-59.9, adult Z68.43 and Bipolar I disorder, most recent episode (or current) mixed, moderate F31.62 [facility] [id number] [place] [address] 73217- 2393 Oct, Bipolar I disorder, most recent episode (or current) mixed, moderate F31.62 [facility] [id number] [place] [address] 53505- 7554 Oct, [facility] [id number] [place] [address] 28121- 1431 Oct, Hypokalemia E87.6 [facility] [id number] [place] [address] 56410- 6019 Oct, DM neuro manif type II E11.49 [facility] [id number] [place] [address] 80052- 3933 Oct, Bipolar I disorder, most recent episode (or current) mixed, moderate F31.62 [facility] [address] 04934- 7318 Oct, Bipolar I disorder, most recent episode (or current) mixed, moderate F31.62 [facility] [id number] [place] [address] 45252- 6949 Oct, Hyperkalemia E87.5 ; Falling R29.6 ; BMI 50.0-59.9, adult Z68.43 and Acute left ankle pain M25.572 [facility] [id number] [place] [address] 62308- 9675 Oct, DM neuro manif type II E11.49 [facility] [id number] [place] [address] 87112- 8927 Oct, [facility] [id number] [place] [address] 68159- 2756 Sep, Chronic pain G89.29 [facility] [id number] [place] [address] 98731- 3923 Sep, [facility] [address] 91789- 9484 Sep, Bilateral primary osteoarthritis of knee M17.0 [facility] [id number] [place] [address] 87091- 0105 Sep, Generalized edema R60.1 [facility] [address] [place] [address] 4676 16 Sep, 2017 Bipolar I disorder, most recent episode (or current) mixed, moderate F31.62 [facility] [id number] [place] [address] 32303- 9162 15 Sep, 2017 Hypoxia R09.02 ; Other hypervolemia E87.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 ; Anemia of chronic illness D63.8 and BMI 50.0- 59.9, adult Z68.43 [facility] [address] 47837- 2729 Sep, [facility] [address] 15828- 4805 Sep, Bipolar I disorder, most recent episode (or current) mixed, moderate F31.62 [facility] [address] 34297- 5525 Aug, Chronic pain G89.29 [facility] [address] 42469- 9455 Aug, Generalized edema R60.1 [facility] [address] 88934- 1174 Aug, [facility] [id number] [place] [address] 93656- 5777 Aug, [facility] [address] 52064- 5408 14 Aug, 2017 Bipolar I disorder, most recent episode (or current) mixed, moderate F31.62 [facility] [address] 83439- 5605 07 Aug, 2017 Bipolar I disorder, most recent episode (or current) mixed, moderate F31.62 [facility] [id number] [place] [address] 70008- 7573 Aug, Chronic pain G89.29 [facility] [address], [place] [address] 9416 Jul, Bipolar I disorder, most recent episode (or current) mixed, moderate F31.62 [facility] [address], [place] [address] 5357 Jul, Bipolar I disorder, most recent episode (or current) mixed, moderate F31.62 and BMI 60.0-69.9, adult Z68.44 [facility] [id number] [place] [address] 38264- 5664 Jul, Bipolar I disorder, most recent episode (or current) mixed, moderate F31.62 [facility] [id number] [place] [address] 57809- 0336 Jul, Chronic pain G89.29 [facility] [id number] [place] [address] 30105- 0075 Jul, Bipolar I disorder, most recent episode (or current) mixed, moderate F31.62 [facility] [id number] [place] [address] 17516- 3969 Jun, Polyneuropathy associated with underlying disease G63 and Diabetes E11.9 [facility] [address] [place] [address] 11911- 7158 Jun, Bipolar I disorder, most recent episode (or current) mixed, moderate F31.62 [facility] [address] [place] [address] 74125- 6292 Jun, Chronic pain G89.29 [facility] [address], [place] [address] 3488 May, Bipolar I disorder, most recent episode (or current) mixed, moderate F31.62 [facility] [address], [place] [address]- 3094 May, Bipolar I disorder, most recent episode (or current) mixed, moderate F31.62 [facility] [id number] [place] [address] 67800- 8317 20 May, 2017 Diabetic polyneuropathy associated with type 2 diabetes mellitus E11.42 [facility] [id number] [place] [address] 33114- 1554 18 May, 2017 Bipolar I disorder, most recent episode (or current) mixed, moderate F31.62 [facility] [id number] [place] [address] 64898- 7908 13 May, 2017 Bipolar I disorder, most recent episode (or current) mixed, moderate F31.62 [facility] [id number] [place] [address] 66876- 2606 12 May, 2017 Chronic pain G89.29 [facility] [id number] [place] [address] 81633- 9207 30 Apr, 2017 Bipolar I disorder, most recent episode (or current) mixed, moderate F31.62 [facility] [id number] [place] [address] 19184- 1576 Apr, [facility] [id number] [place] [address] 07053- 2813 Apr, Chronic pain G89.29 and DM neuro manif type II E11.49 [facility] [id number] [place] [address] 63711- 5453 Apr, [facility] [id number] [place] [address] 09126- 6483 Apr, Bipolar I disorder, most recent episode (or current) mixed, moderate F31.62 [facility] [id number] [place] [address] 21896- 0217 14 Apr, 2017 Chronic pain G89.29 [facility] [id number] [place] [address] 88234- 0178 Apr, Iliotibial band syndrome, left M76.32 [facility] [id number] [place] [address] 41489- 4452 Apr, Bipolar I disorder, most recent episode (or current) mixed, moderate F31.62 [facility] [id number] [place] [address] 39011- 2889 Mar, Bipolar I disorder, most recent episode (or current) mixed, moderate F31.62 [facility] [id number] [place] [address] 71418- 3237 Mar, Bipolar I disorder, most recent episode (or current) mixed, moderate F31.62 [facility] [id number] [place] [address] 53067- 5612 Mar, [facility] [id number] [place] [address] 31194- 7726 Mar, Bipolar I disorder, most recent episode (or current) mixed, moderate F31.62 [facility] [id number] [place] [address] 98472- 6527 Mar, Chronic pain G89.29 [facility] [id number] [place] [address] 03315- 7076 Mar, Bipolar I disorder, most recent episode (or current) mixed, moderate F31.62 [facility] [id number] [place] [address] 98859- 9750 Mar, Bipolar I disorder, most recent episode (or current) mixed, moderate F31.62 [facility] [id number] [place] [address] 55217- 9870 Mar, Acute pain of left knee M25.562 ; Left hip pain M25.552 ; Generalized edema R60.1 and Tongue swelling R22.0 [facility] [id number] [place] [address] 46549- 6948 Mar, [facility] [id number] [place] [address] 66133- 4646 Feb, Chronic pain G89.29 [facility] [id number] [place] [address] 55511- 2814 Feb, Diabetes E11.9 [facility] [address], [place] [address]- 1423 January, Chronic pain G89.29 [facility] [address], [place] [address]- 8931 January, [facility] [address], [place] [address]- 3867 January, Bipolar I disorder, most recent episode (or current) mixed, moderate F31.62 [facility] [id number] [place] [address] 64911- 3738 Dec, Bipolar I disorder, most recent episode (or current) mixed, moderate F31.62 [facility] [address], [place] [address]- 8531 Dec, Chronic pain G89.29 [facility] [id number] [place] [address] 44091- 5735 Dec, Bipolar I disorder, most recent episode (or current) mixed, moderate F31.62 [facility] [id number] [place] [address] 20477- 7464 Dec, Diabetes E11.9 ; Essential hypertension I10 ; Chronic pain G89.29 and Morbid obesity E66.01 [facility] [address], [place] [address]- 5829 Dec, [facility] [address] [place] [address] 50805- 6285 Dec, Bipolar I disorder, most recent episode (or current) mixed, moderate F31.62 [facility] [address], [place] [address]- 6511 Dec, Bipolar I disorder, most recent episode (or current) mixed, moderate F31.62 [facility] [address], [place] [address]- 6778 Nov, Chronic pain G89.29 [facility] [id number] [place] [address]- 3641 Nov, Bipolar I disorder, most recent episode (or current) mixed, moderate F31.62 [facility] [address], [place] [address]- 2526 Nov, [facility] [address], [place] [address]- 8491 Nov, Bipolar I disorder, most recent episode (or current) mixed, moderate F31.62 [facility] [address], [place] [address]- 9195 Nov, Bipolar I disorder, most recent episode (or current) mixed, moderate F31.62 [facility] [address], [place] [address]- 3076 Nov, [facility] [id number] [place] [address] 08751- 7189 Nov, [facility] [address], [place] [address]- 5410 Nov, [facility] [address] [place] [address] 60388- 2125 Oct, Chronic pain G89.29 [facility] [address], [place] [address]- 9664 Oct, Bipolar I disorder, most recent episode (or current) mixed, moderate F31.62 [facility] [address], [place] [address]- 3785 Oct, [facility] [address], [place] [address]- 9973 Oct, Chronic pain G89.29 ; Diabetes E11.9 ; Anxiety F41.9 and 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 [facility] [address], [place] [address]- 6406 Oct, [facility] [id number] [place] [address]- 3646 Oct, Diabetes E11.9 [facility] [id number] [place] [address] 10697- 9146 Oct, Bipolar I disorder, most recent episode (or current) mixed, moderate F31.62 [facility] [id number] [place] [address] 43949- 9746 Sep, Chronic pain G89.29 [facility] [id number] [place] [address] 38324- 1886 Sep, Chronic pain G89.29 [facility] [id number] [place] [address] 976790- 9966 Aug, Chronic pain G89.29 [facility] [id number] [place] [address] 09197- 0426 Jul, [facility] [id number] [place] [address] 54512- 9037 Jul, Diabetes E11.9 [facility] [id number] [place] [address] 65622- 6120 Jul, Chronic pain G89.29 [facility] [id number] [place] [address] 04389- 1962 Jul, Bipolar I disorder, most recent episode (or current) mixed, moderate F31.62 [facility] [address] [place] [address] 96616- 1361 Jun, Bipolar I disorder, most recent episode (or current) mixed, moderate F31.62 [facility] [address] [place] [address] 12351- 1636 Jun, [facility] [id number] [place] [address] 10178- 7011 Jun, Bipolar I disorder, most recent episode (or current) mixed, moderate F31.62 [facility] [id number] [place] [address] 42484- 4337 30 May, 2016 Insomnia, unspecified type G47.00 [facility] [id number] [place] [address] 11745- 8695 22 May, 2016 Bipolar I disorder, most recent episode (or current) mixed, moderate F31.62 [facility] [address] 84278- 7943 14 May, 2016 [facility] [address] 795469- 9528 08 May, 2016 Bipolar I disorder, most recent episode (or current) mixed, moderate F31.62 [facility] [address] 269532- 1058 May, Diabetes E11.9 and Essential hypertension I10 [facility] [address] 61027- 9146 Apr, Chronic pain G89.29 [facility] [address] 26917- 5852 Apr, Bipolar I disorder, most recent episode (or current) mixed, moderate F31.62 [facility] [address] 61217- 3264 Apr, [facility] [address] 20746- 5555 Apr, [facility] [address] 85410- 3891 Mar, Chronic pain G89.29 ; Headache, unspecified headache type R51 ; Neuropathy G62.9 ; Pain of right hip joint M25.551 and Essential hypertension I10 [facility] [address] 21556- 5230 Mar, Chronic pain G89.29 [facility] [id number] [place] [address] 04325- 2588 Mar, Bipolar I disorder, most recent episode (or current) mixed, moderate F31.62 [facility] [address] [place] [address] 01056- 3679 Feb, Bipolar I disorder, most recent episode (or current) mixed, moderate F31.62 and Insomnia, unspecified type G47.00 [facility] [id number] [place] [address] 74023- 1946 Feb, Chronic pain G89.29 [facility] [id number] [place] [address] 11193- 0543 Feb, Bipolar I disorder, most recent episode (or current) mixed, moderate F31.62 [facility] [address] 831692- 9665 January, Bipolar I disorder, most recent episode (or current) mixed, moderate F31.62 [facility] [id number] [place] [address] 95003- 7745 January, Chronic pain G89.29 [facility] [id number] [place] [address] 77363- 3709 January, Chronic pain G89.29 and Essential hypertension I10 [facility] [id number] [place] [address] 86733- 6550 January, Bipolar I disorder, most recent episode (or current) mixed, moderate F31.62 [facility] [id number] [place] [address] 69651- 9743 Dec, [facility] [id number] [place] [address] 65309- 7206 Dec, [facility] [id number] [place] [address] 32904- 5164 Dec, [facility] [id number] [place] [address] 68908- 3584 Dec, [facility] [id number] [place] [address] 59660- 7882 Nov, Reactive airway disease J45.909 [facility] [address], [place] [address]- 5672 Nov, [facility] [id number] [place] [address] 56451- 7626 Nov, [facility] [id number] [place] [address] 18383- 1145 30 Nov, 2015 [facility] [address] 47368- 9572 Nov, [facility] [id number] [place] [address] 01078- 9802 Nov, Onychomycosis B35.1 ; Hammertoe M20.40 ; [place] or callus L84 and DM neuro manif type II E11.49 [facility] [id number] [place] [address] 10762- 0982 Nov, Chronic pain G89.29 ; Leukocytosis D72.829 and Diabetes E11.9 [facility] [id number] [place] [address] 30481- 6180 Nov, [facility] [id number] [place] [address] 03946- 6176 Oct, Bronchitis J40 [facility] [id number] [place] [address] 39978- 5093 Oct, [facility] [id number] [place] [address] 75211- 7625 Oct, [facility] [id number] [place] [address] 23180- 1207 Oct, Mastoiditis, unspecified laterality H70.90 and Type 2 diabetes mellitus with complication E11.8 [facility] [address] [place] [address] 97752- 1003 Sep, [facility] [address] [place] [address] 37669- 0789 Sep, Dysuria R30.0 ; Cough R05 ; Benign prostatic hyperplasia with lower urinary tract symptoms, unspecified morphology N40.1 ; Hypokalemia E87.6 and Eustachian tube dysfunction, unspecified laterality H69.80 [facility] [id number] [place] [address] 77776- 1230 Sep, Moderate mixed bipolar I disorder F31.62 [facility] [address] 14650- 8368 Sep, Hypokalemia E87.6 [facility] [address] 06478- 2083 Sep, [facility] [address] 87781- 2261 Sep, Upper respiratory tract infection, unspecified type J06.9 [facility] [address] 35775- 9622 Aug, [facility] [address] 30365- 1945 Aug, Dysuria R30.0 [facility] [address] 91146- 7419 Aug, [facility] [id number] [place] [address] 54463- 4112 Jul, [facility] [id number] [place] [address] 71763- 2174 Jul, [facility] [id number] [place] [address] 32862- 4848 Jul, [facility] [address] 19805- 6635 Jul, [facility] [address] 80089- 1847 Jun, [facility] [id number] [place] [address] 86834- 7268 Jun, [facility] [address], [place] [address]- 4473 Jun, [facility] [id number] [place] [address] 70307- 5139 May, [facility] [id number] [place] [address] 26798- 8201 May, Bipolar I disorder, most recent episode (or current) mixed, moderate 296.62 [facility] [id number] [place] [address] 33598- 6549 May, [facility] [id number] [place] [address] 48859- 4386 May, Bipolar I disorder, most recent episode (or current) mixed, moderate 296.62 and Major depressive disorder, recurrent episode, severe, specified as with psychotic behavior 296.34 [facility] [id number] [place] [address] 93898- 5046 May, Bipolar I disorder, most recent episode (or current) mixed, moderate 296.62 [facility] [address], [place] [address]- 7293 May, [facility] [id number] [place] [address] 83441- 6685 Apr, [facility] [address], [place] [address]- 0261 Apr, [facility] [address] [place] [address] 71787- 4849 Apr, Unspecified disorder of kidney and ureter 593.9 and Diabetes mellitus type 2, uncontrolled 250.02 [facility] [id number] [place] [address] 72657- 1347 Apr, [facility] [id number] [place] [address] 56815- 4687 Apr, [facility] [address] [place] [address] [phone] Apr, [facility] [id number], [place] [address] Apr, [facility] [id number] [place] [address] [phone]- [phone] Apr, Diabetes mellitus type II, uncontrolled 250.02 [facility] [id number] [place] [address] [phone] Apr, [facility] [id number] [place] [address] [phone]- [phone] Mar, [facility] [id number] [place] [address] [phone] Mar, [facility] [id number] [place] [address] [id number]- 4150 Mar, [facility] [id number] [place] [address] [phone]- [phone] Mar, Major depressive disorder, recurrent episode, severe, specified as with psychotic behavior 296.34 and Bipolar I disorder, most recent episode (or current) mixed, moderate 296.62 [facility] [id number] [place] [address] 19073- 7593 Mar, Diabetes 250.00 ; Anuria 788.5 ; Nausea and vomiting 787.01 and Diarrhea 787.91 [facility] [address], [place] [address] 3600 Mar, Diabetes 250.00 [facility] [id number] [place] [address] 70527- 9516 Mar, [facility] [address], [place] [address] 7261 Mar, Diabetes 250.00 [facility] [id number] [place] [address] 61160- 7956 Mar, [facility] [address], [place] [address]- 7096 Mar, [facility] [id number] [place] [address] 74654- 2127 Mar, [place] [address] [address]- 0428 Mar, [facility] [id number] [place] [address] 51244- 7763 Mar, Bipolar I disorder, most recent episode (or current) mixed, moderate 296.62 and Major depressive disorder, recurrent episode, severe, specified as with psychotic behavior 296.34 [place] [id number] [place] [address] 33623- 7594 Mar, Magnesium deficiency 275.2 ; Hypokalemia 276.8 ; Nausea & vomiting 787.01 and Diabetes mellitus type 2, uncontrolled 250.02 [place] [id number] [place] [address] 86147- 2062 Feb, [place] [address] 42916- 0778 Feb, Bipolar I disorder, most recent episode (or current) mixed, moderate 296.62 [place] [id number] [place] [address] 93066- 2325 Feb, Nausea and vomiting 787.01 ; Left elbow pain 719.42 ; Anuria 788.5 and Diabetes 250.00 [place] [id number] [place] [address] 42209- 5047 Feb, [place] [id number] [place] [address] 62549- 7536 Feb, Hypopotassemia 276.8 and Hypokalemia 276.8 [place] [address] 02983- 3060 Feb, Hypopotassemia 276.8 and Hypokalemia 276.8 [place] [id number] [place] [address] 37668- 1621 Feb, Seborrheic keratoses 702.19 [place] [address], [place] [address]- 7424 Feb, Hypopotassemia 276.8 and Low magnesium levels 275.2 [facility] [id number] [address] 9892 January, [facility] [id number] [address]- 1837 January, [facility] [id number] [place] [address] 98846- 9956 January, [facility] [id number] [place] [address] 33795- 9446 January, Scalp lesion 709.9 [facility] [id number] [place] [address] 95211- 2282 January, [facility] [id number] [place] [address] 28635- 9413 Dec, Tear of medial cartilage or meniscus of knee, current 836.0 and 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 [facility] [address], [place] [address]- 2407 Dec, [facility] [id number] [place] [address] 90612- 7802 Dec, [facility] [address], [place] [address]- 0064 Dec, Squamous cell carcinoma, 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 [facility] [address], [place] [address]- 4095 Dec, [facility] [id number], [place] [address]- 9189 Dec, [facility] [id number] [address]- 8682 Nov, [facility] [address], [place] [address]- 6527 Nov, [facility] [place] [facility] [address] [id number] [place] [address]- 2517 Nov, [facility] [place] [facility] [address] [id number] [place] [address]- 6586 Nov, [facility] [place] [facility] [address] [id number] [place] [address]- 1677 Nov, 2014 [facility] [place] [facility] [address] [id number] [place] [address]- 9474 Nov, 2014 [facility] [place] [facility] [address] [id number] [place] [address]- 4365 Nov, [facility] [place] [facility] [address] [id number] [place] [address]- 7730 Nov, [facility] [place] [facility] [address] [id number] [place] [address]- 9714 Nov, [facility] [place] [facility] [address] [id number] [place] [address]- 7462 Nov, [facility] [place] [facility] [address] [id number] [place] [address]- 0686 Nov, [facility] [place] [facility] [address] [id number] [place] [address]- 2188 Nov, [facility] [place] [facility] [address] [facility] [id number] [place] [address]- 4150 Oct, 2014 [facility] [place] [facility] [address] [id number] [place] [address]- 7891 Oct, 2014 [facility] [place] [facility] [address] [id number] [place] [address]- 6693 Oct, 2014 [facility] [place] [facility] [address] [id number] [place] [address]- 5362 Oct, 2014 [facility] [place] [facility] [address] [id number] [place] [address]- 0524 Oct, 2014 [facility] [place] [facility] [address] [id number], [place] [address]- 1747 Oct, [facility] [place] [facility] [address] [id number] [place] [address]- 1077 Oct, [facility] [place] [facility] [address] [id number] [place] [address]- 4578 Oct, [facility] [place] [facility] [address] [id number] [place] [address]- 2936 Oct, [facility] [place] [facility] [address] [id number] [place] [address]- 7220 Sep, [facility] [place] [facility] [address] [id number] [place] [address]- 2096 Sep, [facility] [place] [facility] [address] [id number] [place] [address]- 0579 Sep, [facility] [place] [facility] [address] [id number] [place] [address]- 2340 Sep, [facility] [place] [facility] [address] [id number], [place] [address]- 8808 Sep, [facility] [place] [facility] [address] [id number] [place] [address]- 3420 Sep, [facility] [place] [facility] [address] [id number] [place] [address]- 7203 Sep, [facility] [place] [facility] [address] [id number] [place] [address]- 2593 Sep, [facility] [place] [facility] [address] [id number], [place] [address]- 8124 Sep, [facility] [place] [facility] [address] [id number], [place] [address]- 6785 Sep, [facility] [place] [facility] [address] [id number], [place] [address]- 6798 Sep, [facility] [place] [facility] [address] [id number], [place] [address]- 5718 Sep, [facility] [place] [facility] [address] [id number] [place] [address]- 8392 Sep, [facility] [address] [id number] [place] [address]- 4932 Sep, [facility] [address] [id number] [place] [address]- 0789 Sep, [facility] [address] [id number] [place] [address]- 9401 Sep, [facility] [address] [id number] [place] [address]- 4522 Aug, [facility] [address] [id number] [place] [address]- 2968 Aug, [facility] [address] [id number] [place] [address]- 7522 Aug, [facility] [address] [id number] [place] [address]- 0586 Aug, [facility] [address] [id number] [place] [address]- 0471 Aug, [facility] [address] [id number] [place] [address]- 2216 Aug, [facility] [address] [id number] [place] [address]- 7702 Aug, [facility] [address] [id number] [place] [address]- 8244 Aug, [facility] [address] [id number] [place] [address]- 7204 Aug, [facility] [address] [id number] [place] [address]- 1005 Aug, [facility] [address] [id number] [place] [address]695 Aug, [facility] [address] [place] [id number] Aug, [facility] [address] [id number] [place] [address]- 3421 Aug, [facility] [place] [facility] [address] [id number] [place] [address]- 3887 Aug, [facility] [place] [facility] [address] [id number] [place] [address]- 6002 Aug, [facility] [place] [facility] [address] [id number] [place] [address]- 8822 Aug, [facility] [place] [facility] [address] [id number] [place] [address]- 2155 Aug, [facility] [place] [facility] [address] [id number] [place] [address]- 8944 Aug, [facility] [place] [facility] [address] [id number] [place] [address]- 1919 Aug, [facility] [place] [facility] [address] [id number] [place] [address]- 1114 Aug, [facility] [place] [facility] [address] [id number] [place] [address]- 5015 Aug, [facility] [place] [facility] [address] [id number] [place] [address]- 4527 Aug, [facility] [place] [facility] [address] [id number] [place] [address]- 5388 Aug, [facility] [place] [facility] [address] [id number] [place] [address]- 1806 Aug, [facility] [place] [facility] [address] [id number] [place] [address]- 3015 Aug, [facility] [place] [facility] [address] [id number] [place] [address]- 3832 Aug, [facility] [place] [facility] [address] [id number] [place] [address]- 4863 Aug, [facility] [place] [facility] [address] [id number], [place] [address]- 5990 Aug, [facility] [place] [facility] [address] [id number] [place] [address]- 4198 Aug, [facility] [place] [facility] [address] [id number] [place] 7950 Aug, [facility] [place] [facility] [address] [id number] [place] [address]- 3144 Jul, [facility] [place] [facility] [address] [id number] [place] [address]- 5866 Jul, [facility] [place] [facility] [address] [id number] [place] [address]- 7038 Jul, [facility] [place] [facility] [address] [id number] [place] [address]- 2348 Jul, [facility] [place] [facility] [address] [id number] [place] [address]- 9154 Jul, [facility] [place] [facility] [address] [id number] [place] [address]- 7865 Jul, [facility] [place] [facility] [address] [id number] [place] [address]- 6618 Jul, [facility] [place] [facility] [address] [id number] [place] [address]- 9134 Jul, [facility] [place] [facility] [address] [id number], [place] [address]- 5653 Jul, [facility] [place] [facility] [address] [id number], [place] [address]- 7708 Jul, [facility] [place] [facility] [address] [id number] [place] [address]- 2403 Jun, [facility] [place] [facility] [address] [id number] [place] [address]- 4244 Jun, [facility] [place] [facility] [address] [id number] [place] [address]- 4192 Jun, [facility] [place] [facility] [address] [id number] [place] [address]- 2378 16 Jun, 2014 [facility] [place] [facility] [address] [id number] [place] [address]- 4723 15 Jun, 2014 [facility] [place] [facility] [address] [id number] [place] [address]- 5206 15 Jun, 2014 [facility] [place] [facility] [address] [id number] [place] [address]- 3307 05 Jun, 2014 [facility] [place] [facility] [address] [id number] [place] [address]- 3632 05 Jun, 2014 [facility] [place] [facility] [address] [id number] [place] [address]- 1129 Jun, [facility] [place] [facility] [address] [id number] [place] [address]- 4003 Jun, [facility] [place] [facility] [address] [id number] [place] [address]- 8068 29 May, 2013 [facility] [place] [facility] [address] [id number] [place] [address]- 254 29 Sep, 2013 [facility] [place] [facility] [address] [id number] [place] [address]- 7393 26 Sep, 2013 [facility] [place] [facility] [address] [id number] [place] [address]- 4178 26 Sep, 2013 [facility] [place] [facility] [address] [id number] [place] [address]- 2542 17 Sep, 2013 [facility] [place] [facility] [address] [id number] [place] [address]- 2545 17 Sep, 2013 [facility] [place] [facility] [address] [id number] [place] [address]- 2546 15 Sep, 2013 [facility] [place] [facility] [address] [id number] [place] [address]- 2546 15 Sep, 2013 [facility] [place] [facility] [address] [id number] [place] [address]- 2543 15 May, 2013 [facility] [place] [facility] [address] [id number] [place] [address]- 2720 15 May, 2013 [facility] [place] [facility] [address] [id number] [place] [address]- 5920 10 May, 2013 [facility] [place] [facility] [address] [id number] [place] [address]- 5761 10 May, 2013 [facility] [place] [facility] [address] [id number] [place] [address]- 3626 09 May, 2013 [facility] [place] [facility] [address] [id number] [place] [address]- 3511 May, 2013 [facility] [place] [facility] [address] [id number] [place] [address]- 7371 May, 2013 [facility] [place] [facility] [address] [id number] [place] [address]- 8880 May, 2013 [facility] [place] [facility] [address] [id number] [place] [address]- 5892 Apr, [facility] [place] [facility] [address] [id number] [place] [address]- 7986 Apr, [facility] [place] [facility] [address] [id number] [place] [address]- 9493 Apr, [facility] [place] [facility] [address] [id number] [place] [address]- 6791 Apr, [facility] [place] [facility] [address] [id number] [place] [address]- 2947 Apr, [facility] [place] [facility] [address] [id number] [place] [address]- 8513 Apr, [facility] [place] [facility] [address] [id number] [place] [address]- 9069 Apr, [facility] [place] [facility] [address] [id number] [place] [address]- 0325 Apr, [facility] [place] [facility] [address] [id number] [place] [address]- 9024 Apr, [facility] [place] [facility] [address] [id number] [place] [address]- 5607 Apr, [facility] [place] [facility] [address] [id number] [place] [address]- 6101 Apr, [facility] [place] [facility] [address] [id number] [place] [address]- 4171 Apr, [facility] [place] [facility] [address] [id number] [place] [address]- 9574 Apr, [facility] [place] [facility] [address] [id number] [place] [address]- 6385 Apr, [facility] [place] [facility] [address] [id number] [place] [address]- 4656 Apr, [facility] [place] [facility] [address] [id number] [place] [address]- 2717 Mar, [facility] [place] [facility] [address] [id number] [place] [address]- 5589 Mar, [facility] [place] [facility] [address] [id number] [place] [address]- 6512 Mar, [facility] [place] [facility] [address] [id number] [place] [address]- 8608 Mar, [facility] [place] [facility] [address] [id number] [place] [address]- 3393 Mar, [facility] [place] [facility] [address] [id number] [place] [address]- 6307 Mar, [facility] [place] [facility] [address] [id number] [place] [address]- 2438 Mar, [facility] [place] [facility] [address] [id number] [place] [address]- 2402 Mar, [facility] [place] [facility] [address] [id number] [place] [address]- 8085 Mar, [facility] [place] [facility] [address] [id number] [place] [address]- 7862 Mar, 2013 [facility] [place] [facility] [address] [id number] [place] [address]- 7480 Mar, 2013 [facility] [place] [facility] [address] [id number] [place] [address]- 6381 Mar, 2013 [facility] [place] [facility] [address] [id number] [place] [address]- 8850 Mar, 2013 [facility] [place] [facility] [address] [id number] [place] [address]- 1981 Mar, 2013 [facility] [place] [facility] [address] [id number] [place] [address]- 6943 Mar, 2013 [facility] [place] [facility] [address] [id number] [place] [address]- 4463 Mar, 2013 [facility] [place] [facility] [address] [id number] [place] [address]- 8757 Mar, [facility] [place] [facility] [address] [id number] [place] [address]- 4076 Mar, [facility] [place] [facility] [address] [id number] [place] [address]- 8458 Feb, [facility] [place] [facility] [address] [id number] [place] [address]- 0781 Feb, [facility] [place] [facility] [address] [id number] [place] [address]- 1280 Feb, [facility] [place] [facility] [address] [id number] [place] [address]- 1009 Feb, [facility] [place] [facility] [address] [id number] [place] [address]- 2318 Feb, [facility] [place] [facility] [address] [id number] [place] [address]- 5138 Feb, [facility] [place] [facility] [address] [id number] [place] [address]- 2421 Feb, [facility] [place] [facility] [address] [id number] [place] [address]- 0962 Feb, [facility] [place] [facility] [address] [id number] [place] [address]- 1731 Feb, [facility] [place] [facility] [address] [id number] [place] [address]- 9311 Feb, [facility] [place] [facility] [address] [id number] [place] [address]- 6327 Feb, [facility] [place] [facility] [address] [id number] [place] [address]- 7849 Feb, [facility] [place] [facility] [address] [id number] [place] [address]- 4115 Feb, [facility] [place] [facility] [address] [id number] [place] [address]- 7084 Feb, [facility] [place] [facility] [address] [id number] [place] [address]- 6635 January, [facility] [place] [facility] [address] [id number] [place] [address]- 1598 January, [facility] [place] [facility] [address] [id number] [place] [address]- 5570 January, [facility] [place] [facility] [address] [id number] [place] [address]- 4476 January, [facility] [place] [facility] [address] [id number] [place] [address]- 0478 January, [facility] [place] [facility] [address] [id number] [place] [address]- 1595 January, [facility] [place] [facility] [address] [id number] [place] [address]- 6712 January, [facility] [place] [facility] [address] [id number] [place] [address]- 1837 January, [facility] [place] [facility] [address] [id number] [place] [address]- 0394 January, [facility] [address] [id number] [place] [address]- 4732 January, [facility] [address] [id number] [place] [address]- 2436 January, [facility] [address] [id number] [place] [address]- 4487 January, [facility] [address] [id number] [place] [address]- 6091 January, [facility] [address] [id number] [place] [address]- 7107 January, [facility] [address] [id number] [place] [address] Dec, [facility] [address] [id number] [place] [address] Dec, [facility] [address] [id number] [place] [address] Dec, [facility] [address] [id number] [place] [address] Dec, [facility] [address] [id number] [place] [address] Dec, [facility] [address] [id number] [place] [address] Dec, [facility] [address] [id number] [place] [address] Dec, [facility] [place] [facility] [address] [id number] [place] [address] Dec, [facility] [place] [facility] [address] [id number] [place] [address] Dec, [facility] [address] [id number] [place] [address] Dec, [facility] [place] [facility] [address] [id number] [place] [address] Nov, [facility] [place] [facility] [address] [id number] [place] [address] Nov, [facility] [place] [facility] [address] [id number] [place] [address] Nov, [facility] [place] [facility] [address] [id number] [place] [address] Nov, [facility] [place] [facility] [address] [id number] [place] [address] Nov, [facility] [place] [facility] [address] [id number] [place] [address] Nov, [facility] [place] [facility] [address] [id number] [place] [address] Nov, [facility] [place] [facility] [address] [id number] [place] [address] Nov, [facility] [place] [facility] [address] [id number] [place] [address] Nov, [facility] [place] [facility] [address] [id number] [place] [address] Nov, [facility] [place] [facility] [address] [id number] [place] [address]- [address] Oct, [facility] [place] [facility] [address] [id number] [place] [address] Oct, [facility] [place] [facility] [address] [id number] [place] [address] Oct, [facility] [place] [facility] [address] [id number] [place] [address]- [address] Oct, [facility] [place] [facility] [address] [id number] [place] [address] Oct, [facility] [place] [facility] [address] [id number] [place] [address] Oct, [facility] [place] [facility] [address] [id number] [place] [address] Oct, [facility] [place] [facility] [address] [id number] [place] [address] Oct, [facility] [place] [facility] [address] [id number] [place] [address]- [address] Oct, [facility] [place] [facility] [address] [id number] [place] [address] Oct, [facility] [place] [facility] [address] [id number] [place] [address] 134[address] Oct, [facility] [place] [facility] [address] [id number] [place] [address] Oct, [facility] [place] [facility] [address] [id number] [place] [address] Oct, [facility] [place] [facility] [address] [id number] [place] [address] Oct, [facility] [place] [facility] [address] [id number] [place] [address] Sep, [facility] [place] [facility] [address] [id number] [place] [address] Sep, [facility] [place] [facility] [address] [id number] [place] [address] 118[address] Sep, [facility] [place] [facility] [address] [id number] [place] [address]- [address] Sep, [facility] [place] [facility] [address] [id number] [place] [address]- [address] Sep, [facility] [place] [facility] [address] [id number] [place] [address]- [address] Sep, [facility] [place] [facility] [address] [id number] [place] [address] 14 Sep, 2013 [facility] [place] [facility] [address] [id number] [place] [address]- [address] 14 Sep, 2013 [facility] [place] [facility] [address] [id number] [place] [address]- [address] 08 Sep, 2013 [facility] [place] [facility] [address] [id number] [place] [address]- [address] Sep, [facility] [place] [facility] [address] [id number] [place] [address]- [address] Aug, [facility] [place] [facility] [address] [id number] [place] [address]- [address] Aug, [facility] [place] [facility] [address] [id number] [place] [address]- [address] Jul, [facility] [place] [facility] [address] [id number] [place] [address]- [address] Jul, [facility] [place] [facility] [address] [id number], [place] [address] Jul, [facility] [place] [facility] [address] [id number] [place] [address]- [address] Jul, [facility] [place] [facility] [address] [id number] [place] [address]- 8968 Jul, [facility] [place] [facility] [address] [id number], [place] [address] Jul, [facility] [place] [facility] [address] [id number], [place] [address] Jul, [facility] [place] [facility] [address] [id number] [place] [address] Jul, [facility] [place] [facility] [address] [id number], [place] [address] Jul, [facility] [place] [facility] [address] [id number], [place] [address] Jul, [facility] [place] [facility] [address] [id number] [place] [address]- [address] 07 Jul, 2012 [facility] [place] [facility] [address] [id number] [place] [address]- [address] Jul, 2012 [facility] [place] [facility] [address] [id number] [place] [address]- [address] Jul, 2012 [facility] [place] [facility] [address] [id number] [place] [address]- [address] Jul, 2012 [facility] [place] [facility] [address] [id number] [place] [address]- [address] Jul, 2012 [facility] [place] [facility] [address] [id number] [place] [address] Jul, 2012 [facility] [place] [facility] [address] [id number] [place] [address]- [address] Jul, 2012 [facility] [place] [facility] [address] [facility] [facility] [id number] [place] [address] Jul, 2012 [facility] [place] [facility] [address] [id number] [place] [address] Jul, [facility] [place] [facility] [address] [id number] [place] [address] 9068 Jun, 2012 [facility] [place] [facility] [address] [facility] [id number], [place] [address]- 8[address] 16 Jun, 2012 [facility] [place] [facility] [address] [id number] [place] [address]- 5712 16 Jun, 2012 [facility] [place] [facility] [address] [id number], [place] [address] 6475 16 Jun, 2012 [facility] [place] [facility] [address] [id number] [place] [address] 16 Jun, 2012 [facility] [place] [facility] [address] [facility] [id number], [place] [address] 2[address] 16 Jun, 2012 [facility] [place] [facility] [address] [id number] [address] 10 Jun, 2013 [facility] [place] [facility] [address] [id number] [place] [address]- 7482 Jun, [facility] [place] [facility] [address] [id number] [place] [address] 4474 Jun, [facility] [place] [facility] [address] [id number] [place] [address]- 2316 Jun, [facility] [place] [facility] [address] [id number] [place] [address]- 2455 Jun, [facility] [place] [facility] [address] [id number] [place] [address]- 9262 26 May, 2013 [facility] [place] [facility] [address] [id number] [place] [address]- 2686 25 May, 2013 [facility] [place] [facility] [address] [id number] [place] [address]- 6771 May, [facility] [place] [facility] [address] [id number] [place] [address]- 7419 17 May, 2013 [facility] [place] [facility] [address] [id number] [place] [address]- 9343 May, [facility] [place] [facility] [address] [id number] [place] [address]- 8715 May, [facility] [place] [facility] [address] [id number] [place] [address]- 7737 May, [facility] [place] [facility] [address] [id number] [place] [address]- 3523 05 May, 2013 [facility] [place] [facility] [address] [id number] [place] [address]- 6553 Apr, [facility] [place] [facility] [address] [id number] [place] [address]- 7810 Apr, [facility] [place] [facility] [address] [id number] [place] [address]- 6392 Apr, [facility] [place] [facility] [address] [id number] [place] [address]- 2546 Apr, [facility] [place] [facility] [address] [id number] [place] [address]- 3787 Apr, [facility] [place] [facility] [address] [id number] [place] [address]- 1240 Mar, [facility] [place] [facility] [address] [id number] [place] [address]- 4156 Mar, [facility] [place] [facility] [address] [id number] [place] [address]- 8707 Mar, [facility] [place] [facility] [address] [id number] [place] [address]- 3028 Mar, [facility] [place] [facility] [address] [id number] [place] [address]- 4737 Mar, [facility] [place] [facility] [address] [id number] [place] [address]- 4204 Mar, [facility] [place] [facility] [address] [id number] [place] [address]- 4914 Mar, [facility] [place] [facility] [address] [id number] [place] [address]- 5882 Mar, [facility] [place] [facility] [address] [id number] [place] [address]- 8402 Feb, [facility] [place] [facility] [address] [id number] [place] [address]- 6674 Feb, [facility] [place] [facility] [address] [id number] [place] [address]- 9438 January, [facility] [place] [facility] [address] [id number] [place] [address]- 6894 January, [facility] [place] [facility] [address] [id number] [place] [address]- 5203 Dec, [facility] [place] [facility] [address] [id number] [place] [address]- 3974 Dec, [facility] [place] [facility] [address] [id number] [place] [address]- 3091 Nov, [facility] [address] [id number] [place] [address]- 1410 Nov, [facility] [place] [facility] [address] [id number] [place] [address]- 1208 Nov, [facility] [address] [id number] [place] [address]- 7627 Nov, [facility] [place] [facility] [address] [id number] [place] [address]- 8772 Oct, [facility] [place] [facility] [address] [id number] [place] [address]- 2830 Oct, [facility] [place] [facility] [address] [id number] [place] [address]- 0774 Oct, [facility] [place] [facility] [address] [id number] [place] [address]- 5059 26 Oct, 2012 [facility] [address] [id number] [place] [address]- 2186 16 Oct, 2012 [facility] [place] [facility] [address] [id number] [place] [address]- 5845 14 Oct, 2012 [facility] [place] [facility] [address] [id number] [place] [address]- 7187 08 Oct, 2012 [facility] [place] [facility] [address] [id number] [place] [address]- 5395 07 Oct, 2012 [facility] [place] [facility] [address] [id number] [place] [address]- 5961 03 Oct, 2012 [facility] [place] [facility] [address] [id number] [place] [address]- 7026 30 Sep, 2012 [facility] [place] [facility] [address] [id number] [place] [address]- 3179 Sep, [facility] [place] [facility] [address] [id number] [place] [address]- 7340 Sep, [facility] [address] [id number] [place] [address]- 0205 Sep, [facility] [place] [facility] [address] [id number] [place] [address]- 5996 Sep, [facility] [place] [facility] [address] [id number] [place] [address]- 0647 Sep, [facility] [place] [facility] [address] [id number] [place] [address]- 3249 Sep, [facility] [place] [facility] [address] [id number] [place] [address]- 6632 Sep, [facility] [place] [facility] [address] [id number] [place] [address]- 8979 Aug, [facility] [address] [id number] [place] [address]- 9437 Aug, [facility] [place] [facility] [address] [id number] [place] [address]- 1938 Aug, [facility] [place] [facility] [address] [id number] [place] [address]- 4853 Aug, [facility] [place] [facility] [address] [id number] [place] [address]- 2897 Aug, [facility] [place] [facility] [address] [id number] [place] [address]- 1312 Aug, [facility] [place] [facility] [address] [id number] [place] [address]- 6211 Aug, [facility] [place] [facility] [address] [id number] [place] [address]- 9613 Aug, [facility] [place] [facility] [address] [id number] [place] [address]- 9811 Jul, [facility] [place] [facility] [address] [id number] [place] [address]- 9533 Jul, [facility] [place] [facility] [address] [id number] [place] [address]- 5539 Jul, [facility] [place] [facility] [address] [id number] [place] [address]- 6090 Jul, [facility] [place] [facility] [address] [id number] [place] [address]- 1522 Jul, [facility] [place] [facility] [address] [id number] [place] [address]- 4260 Jul, [facility] [place] [facility] [address] [id number] [place] [address]- 5205 Jun, [facility] [place] [facility] [address] [id number] [place] [address]- 0187 Jun, [facility] [place] [facility] [address] [id number] [place] [address]- 0586 Jun, [facility] [place] [facility] [address] [id number] [place] [address]- 8946 Jun, [facility] [place] [facility] [address] [id number] [place] [address]- 9291 Jun, [facility] [place] [facility] [address] [id number] [place] [address]- 0850 Jun, [facility] [place] [facility] [address] [id number] [place] [address]- 8520 Jun, [facility] [place] [facility] [address] [id number] [place] [address]- 8540 10 Jun, 2012 [facility] [place] [facility] [address] [id number] [place] [address]- 1608 10 Jun, 2012 [facility] [place] [facility] [address] [id number] [place] 26 May, 2012 [facility] [place] [facility] [address] [id number] [place] [address]- 7141 24 May, 2012 [facility] [place] [facility] [address] [id number] [place] [address]- 8464 May, [facility] [place] [facility] [address] [id number] [place] [address]- 0492 Apr, [facility] [place] [facility] [address] [id number] [place] [address]- 6744 Apr, [facility] [place] [facility] [address] [id number] [place] [address]- 7253 Apr, [facility] [place] [facility] [address] [id number] [place] [address]- 6712 Apr, [facility] [place] [facility] [address] [id number] [place] [address]- 8704 Apr, [facility] [place] [facility] [address] [id number] [place] [address]- 0954 Apr, [facility] [place] [facility] [address] [id number] [place] [address]- 4939 Mar, [facility] [place] [facility] [address] [id number] [place] [address]- 8166 Mar, [facility] [place] [facility] [address] [id number] [place] [address]- 9392 Mar, [facility] [place] [facility] [address] [id number] [place] [address]- 4903 Mar, [facility] [place] [facility] [address] [id number] [place] [address]- 3294 Feb, [facility] [place] [facility] [address] [id number] [place] [address]- 8816 Feb, [facility] [place] [facility] [address] [id number] [place] [address]- 8485 Feb, [facility] [place] [facility] [address] [id number] [place] [address]- 3912 Feb, [facility] [place] [facility] [address] [id number] [place] [address]- 4661 Feb, [facility] [place] [facility] [address] [id number] [place] [address]- 7420 January, [facility] [address] [id number] [place] [address]- 6062 January, [facility] [place] [facility] [address] [id number] [place] [address]- 2325 January, [facility] [address] [id number] [place] [address]- 3767 January, [facility] [place] [facility] [address] [id number] [place] [address]- 9607 January, [facility] [address] [id number] [place] [address]- 1282 January, [facility] [address] [id number] [place] [address]- 0967 Dec, [facility] [address] [id number] [place] [address]- 7255 Dec, [facility] [place] [facility] [address] [id number] [place] [address]- 1596 Dec, [facility] [place] [facility] [address] [id number] [place] [address]- 7601 Dec, [facility] [place] [facility] [address] [id number] [place] [address]- 6968 Dec, [facility] [place] [facility] [address] [id number] [place] [address]- 5014 Nov, [facility] [place] [facility] [address] [id number] [place] [address]- 8323 Nov, [facility] [place] [facility] [address] [id number] [place] [address]- 8297 Nov, [facility] [place] [facility] [address] [id number] [place] [address]- 1894 Nov, [facility] [place] [facility] [address] [id number] [place] [address]- 8393 Oct, [facility] [place] [facility] [address] [id number] [place] [address]- 9237 28 Oct, 2011 [facility] [place] [facility] [address] [id number] [place] [address]- 3026 24 Oct, 2011 [facility] [place] [facility] [address] [id number] [place] [address]- 6666 13 Oct, 2011 [facility] [place] [facility] [address] [id number] [place] [address]- 4266 Oct, [facility] [place] [facility] [address] [id number] [place] [address]- 8513 Sep, [facility] [place] [facility] [address] [id number] [place] [address]- 7104 Sep, [facility] [place] [facility] [address] [id number] [place] [address]- 7617 Sep, [facility] [place] [facility] [address] [id number] [place] [address]- 5203 Sep, [facility] [place] [facility] [address] [id number] [place] [address]- 0641 Sep, [facility] [place] [facility] [address] [id number] [place] [address]- 9173 Sep, [facility] [place] [facility] [address] [id number] [place] [address]- 2166 Aug, [facility] [place] [facility] [address] [id number] [place] [address]- 7661 Aug, [facility] [place] [facility] [address] [id number] [place] [address]- 2056 Aug, [facility] [place] [facility] [address] [id number] [place] [address]- 0856 Jul, [facility] [place] [facility] [address] [id number] [place] [address]- 3040 Jul, [facility] [place] [facility] [address] [id number], [place] [address]- 2015 Jul, [facility] [place] [facility] [address] [id number] [place] [address]- 2834 Jul, [facility] [place] [facility] [address] [id number] [place] [address]- 1225 Jun, [facility] [place] [facility] [address] [id number] [place] [address]25 Jun, [facility] [place] [facility] [address] [id number] [place] [address]- 8286 Jun, [facility] [place] [facility] [address] [id number] [place] [address]- 3286 Jun, [facility] [place] [facility] [address] [id number] [place] [address]- 1232 Jun, [facility] [place] [facility] [address] [id number] [place] [address]- 6658 Jun, [facility] [place] [facility] [address] [id number] [place] [address]- 6951 Mar, [facility] [place] [facility] [address] [id number] [place] [address]- 5549 Dec, [facility] [place] [facility] [address] [id number] [place] [address]- 9345 Dec, [facility] [place] [facility] [address] [id number] [place] [address]- 0512 Nov, [facility] [place] [facility] [address] [id number] [place] [address]- 6023 16 Nov, 2010 [facility] [place] [facility] [address] [id number] [place] [address]- 0024 Sep, [facility] [place] [facility] [address] [id number] [place] [address]- 0539 Aug, [facility] [place] [facility] [address] [id number] [place]31 29 Aug, 2010 [facility] [place] [facility] [address] [id number] [place] [address]- 2216 29 Aug, 2010 [facility] [address] [id number] [place] [address]- 5376 29 Aug, 2010 [facility] [place] [facility] [address] [id number] [place] [address] 2546 27 Aug, 2010 [facility] [address] [id number] [place] [address] 2546 14 Aug, 2010 [facility] [place] [facility] [address] [id number] [place] [address] 2546 08 Aug, 2010 [facility] [address] [id number] [place] [address]- 7996 08 Aug, 2010 [facility] [address] [id number] [place] [address] 2546 07 Aug, 2010 [facility] [address] [id number] [place] [address] 2546 Aug, [facility] [address] [id number] [place] [address]- 6184 06 Aug, 2010 [facility] [address] [id number] [place] [address] 2546 Aug, [facility] [address] [facility] [id number] [place] [address]- 8861 Jul, [facility] [place] [facility] [address] [id number] [place] [address] 2546 30 Jul, 2010 [facility] [place] [facility] [address] [id number] [place] [address] 2546 30 Jul, 2010 [facility] [place] [facility] [address] [id number] [place] [address] 2546 17 Jul, 2010 [facility] [place] [facility] [address] [id number] [place] [address]- 2546 08 Jul, 2010 [facility] [place] [facility] [address] [id number] [place] [address]- 5849 Jul, [facility] [place] [facility] [address] [id number] [place] [address]- 5916 24 Jun, 2010 [facility] [place] [facility] [address] [id number] [place] [address]- 6842 Jun, [facility] [place] [facility] [address] [id number] [place] [address]- 8047 Jun, [facility] [place] [facility] [address] [id number] [place] [address]- 2075 13 Jun, 2010 [facility] [place] [facility] [address] [id number] [place] [address]- 6904 16 Apr, 2010 [facility] [place] [facility] [address] [id number] [place] [address]- 9685 Mar, [facility] [place] [facility] [address] [id number] [place] [address]- 1767 Feb, [facility] [place] [facility] [address] [id number], [place] [address]- 3127 January, [facility] [place] [facility] [address] [id number] [place] [address]- 6506 15 Dec, 2009 [facility] [place] [facility] [address] [id number], [place] [address]- 2759 Nov, [facility] [place] [facility] [address] [id number], [place] [address]- 9600 Aug, [facility] [place] [facility] [address] [id number], [place] [address]- 4196 Aug, [facility] [place] [facility] [address] [id number] [place] [address]- 8808 Aug, [facility] [place] [facility] [address] [id number], [place] [address]- 1937 Jul, [facility] [place] [facility] [address] [id number] [place] [address]- 5806 Jul, [facility] [place] [facility] [id number], [place] [address]- 6689 Jul, [facility] [id number], [place] [address]- 9458 Jun, [facility] [id number], [place] [address]- 6298 Jun, [facility] [id number], [place] [address]- 1869 Jun, [facility] [id number], [place] [address]- 9220 Jun, [facility] [id number] [place] [address] 450046- 1225 Jun, [facility] [id number], [place] [address]- 4935 Jun, [facility] [id number], [place] [address]- 2862 Apr, [facility] [id number], [place] [address]- 8015 Apr, [facility] [id number], [place] [address]- 2584 Feb, [facility] [id number], [place] [address]- 9479 January, [facility] [id number], [place] [address]- 4443 Dec, IMMUNIZATIONS No Known Immunizations SOCIAL HISTORY Never Assessed REASON FOR VISIT Requests return call PLAN OF CARE VITAL SIGNS MEDICATIONS Medication Instructions Dosage Frequency Start Date End Date Duration Status Allopurinol 300 MG Orally Once a day [...] tunnel release (Left) 2000 Surgical History EGD ([facility]) 2009 Surgical History colonoscopy 2009 ([facility]), 2013 ([facility]) Surgical History heart cath: CAD w/ PTCA [...] History inability to urinate 09/16/15 Hospitalization History [facility] mental health early Hospitalization History hyperkalemia 10/2017 Hospitalization History fluid in lung
--- OUTSIDE RECORDS SUMMARY | 2018-08-08 14:43 | XMS REPORT ---
Author Author BEREKET NANCY Organization [facility] Address [address] [place] [address] Care Team Providers Care Weight Clerk Name Role Phone CLAUDIANANCY CURRIE Unavailable PROBLEMS Type Condition ICD9-CM Code OJC26-QZ Code Onset Dates Condition Status SNOMED Code Problem Chronic lymphocytic leukemia C91.10 Active 60828509 Problem Insomnia, unspecified type G47.00 Active 129637655 Problem Lymphocytosis D72.820 Active 44255180 Problem Anxiety F41.9 Active 62442561 Problem Eye exam abnormal R93.8 Active 880408214 Problem Morbid obesity E66.01 Active 905471889 Problem Diabetic polyneuropathy associated with type 2 diabetes mellitus E11.42 Active 28191238 Problem Essential hypertension I10 Active 48716289 Problem Falling R29.6 Active 718467781 Problem 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 Active 989963035 Problem Cough R05 Active 02583949 Problem Dysuria R30.0 Active 28411922 Problem Eustachian tube dysfunction, unspecified laterality H69.80 Active 67884977 Problem Bilateral primary osteoarthritis of knee M17.0 Active 977350158 Problem Polyneuropathy associated with underlying disease G63 Active 406115441 Problem Anemia of chronic illness D63.8 Active 444874412 Problem Retinal edema H35.81 Active 4903368 Problem DM neuro manif type II E11.49 Active 03622618 Problem Diabetes E11.9 Active 36537771 Problem Hypokalemia E87.6 Active 45657248 Problem Benign prostatic hyperplasia with lower urinary tract symptoms, unspecified morphology N40.1 Active 243929767 Problem Reactive airway disease J45.909 Active 628133405985 Problem Bipolar I disorder, most recent episode (or current) mixed, moderate F31.62 Active 94727630 Problem Chronic pain G89.29 Active 44200647 Problem Leukocytosis D72.829 Active 508462201 ALLERGIES Substance Reaction Event Type Date Status Breo Ellipta Tongue Swelling Drug Allergy May, Active ENCOUNTERS Encounter Location Date Diagnosis [facility] [address], [place] [address] Mar, [facility] [id number] [place] [address] 23298- 5413 January, [facility] [id number] [place] [address] 53505- 7642 Dec, Bipolar I disorder, most recent episode (or current) mixed, moderate F31.62 and BMI 50.0-59.9, adult Z68.43 [facility] [id number] [place] [address] 98644- 9425 Dec, Bipolar I disorder, most recent episode (or current) mixed, moderate F31.62 [facility] [id number] [place] [address] 57712- 5976 Dec, Chronic pain G89.29 [facility] [id number] [place] [address] 55000- 3759 Dec, DM neuro manif type II E11.49 ; Right flank pain R10.9 ; 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 ; Encounter for medication monitoring Z51.81 and BMI 50.0-59.9, adult Z68.43 [facility] [id number] [place] [address] 10260- 6120 Dec, Bipolar I disorder, most recent episode (or current) mixed, moderate F31.62 [facility] [id number] [place] [address] 33414- 1972 Nov, Bipolar I disorder, most recent episode (or current) mixed, moderate F31.62 [facility] [id number] [place] [address] 60146- 0155 Nov, Chronic pain G89.29 [facility] [id number] [place] [address] 25026- 4410 Nov, Bipolar I disorder, most recent episode (or current) mixed, moderate F31.62 [facility] [id number] [place] [address] 48766- 5216 Nov, Hypokalemia E87.6 [facility] [address]- 2336 Nov, Bipolar I disorder, most recent episode (or current) mixed, moderate F31.62 [facility] [address] 507931- 1971 Oct, Chronic pain G89.29 [facility] [address] 753956- 7292 Oct, BMI 50.0-59.9, adult Z68.43 and Bipolar I disorder, most recent episode (or current) mixed, moderate F31.62 [facility] [address] 76186- 4658 Oct, Bipolar I disorder, most recent episode (or current) mixed, moderate F31.62 [facility] [address] 57567- 5002 Oct, [facility] [address] 347103- 0906 Oct, Hypokalemia E87.6 [facility] [address] 92438- 6007 Oct, DM neuro manif type II E11.49 [facility] [address] 10839- 9897 Oct, Bipolar I disorder, most recent episode (or current) mixed, moderate F31.62 [facility] [address] 32960- 9402 Oct, Bipolar I disorder, most recent episode (or current) mixed, moderate F31.62 [facility] [address] 15082- 3900 14 Feb, 2018 Hyperkalemia E87.5 ; Falling R29.6 ; BMI 50.0-59.9, adult Z68.43 and Acute left ankle pain M25.572 [facility] [address] 33727- 3453 08 Oct, 2017 DM neuro manif type II E11.49 [facility] [address] 65102- 7952 Oct, [facility] [address] 55147- 6656 Sep, Chronic pain G89.29 [facility] [address] 39770- 4758 Sep, [facility] [address] 66829- 6786 Sep, Bilateral primary osteoarthritis of knee M17.0 [facility] [address] 91481- 9613 Sep, Generalized edema R60.1 [facility] [address] 17975- 6129 Sep, Bipolar I disorder, most recent episode (or current) mixed, moderate F31.62 [facility] [id number] [place] [address] 56621- 7768 Sep, Hypoxia R09.02 ; Other hypervolemia E87.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 ; Anemia of chronic illness D63.8 and BMI 50.0- 59.9, adult Z68.43 [facility] [address] 11011- 6922 Sep, [facility] [address] 03292- 3049 Sep, Bipolar I disorder, most recent episode (or current) mixed, moderate F31.62 [facility] [address], [place] [address] 9549 Aug, Chronic pain G89.29 [facility] [id number] [place] [address] 83840- 9602 Aug, Generalized edema R60.1 [facility] [id number] [place] [address] 31790- 2119 Aug, [facility] [id number] [place] [address] 383344- 4429 Aug, [facility] [id number] [place] [address] 53947- 9526 14 Aug, 2017 Bipolar I disorder, most recent episode (or current) mixed, moderate F31.62 [facility] [id number] [place] [address] 50776- 7144 07 Aug, 2017 Bipolar I disorder, most recent episode (or current) mixed, moderate F31.62 [facility] [id number] [place] [address] 09856- 1893 04 Aug, 2017 Chronic pain G89.29 [facility] [id number] [place] [address] 70221- 7059 30 Jul, 2017 Bipolar I disorder, most recent episode (or current) mixed, moderate F31.62 [facility] [address] [place] [address] 31592- 9689 Jul, Bipolar I disorder, most recent episode (or current) mixed, moderate F31.62 and BMI 60.0-69.9, adult Z68.44 [facility] [address] [place] [address] 23664- 4979 16 Jul, 2017 Bipolar I disorder, most recent episode (or current) mixed, moderate F31.62 [facility] [address] [place] [address] 65661- 2111 06 Jul, 2017 Chronic pain G89.29 [facility] [id number] [place] [address] 63756- 7320 Jul, Bipolar I disorder, most recent episode (or current) mixed, moderate F31.62 [facility] [address] [place] [address] 80545- 9301 Jun, Polyneuropathy associated with underlying disease G63 and Diabetes E11.9 [facility] [address] [place] [address] 56646- 4227 Jun, Bipolar I disorder, most recent episode (or current) mixed, moderate F31.62 [facility] [address] [place] [address] 93148- 2144 Jun, Chronic pain G89.29 [facility] [id number] [place] [address] 39850- 7431 May, Bipolar I disorder, most recent episode (or current) mixed, moderate F31.62 [facility] [id number] [place] [address] 27694- 5637 May, Bipolar I disorder, most recent episode (or current) mixed, moderate F31.62 [facility] [address] [place] [address] 54644- 3381 20 May, 2017 Diabetic polyneuropathy associated with type 2 diabetes mellitus E11.42 [facility] [address], [place] [address]- 4343 18 May, 2017 Bipolar I disorder, most recent episode (or current) mixed, moderate F31.62 [facility] [address] [place] [address] 67197- 4772 13 May, 2017 Bipolar I disorder, most recent episode (or current) mixed, moderate F31.62 [facility] [id number] [place] [address] 07440- 7087 May, Chronic pain G89.29 [facility] [address] [place] [address] 99158- 7773 Apr, Bipolar I disorder, most recent episode (or current) mixed, moderate F31.62 [facility] [address] [place] [address] 46605- 5682 Apr, [facility] [id number] [place] [address] 58617- 4732 Apr, Chronic pain G89.29 and DM neuro manif type II E11.49 [facility] [id number] [place] [address] 15356- 8466 Apr, [facility] [id number] [place] [address] 15519- 4506 Apr, Bipolar I disorder, most recent episode (or current) mixed, moderate F31.62 [facility] [id number] [place] [address] 11037- 2285 Apr, Chronic pain G89.29 [facility] [id number] [place] [address] 02933- 0090 Apr, Iliotibial band syndrome, left M76.32 [facility] [id number] [place] [address] 31622- 2663 Apr, Bipolar I disorder, most recent episode (or current) mixed, moderate F31.62 [facility] [id number] [place] [address] 37212- 8535 Mar, Bipolar I disorder, most recent episode (or current) mixed, moderate F31.62 [facility] [address] [place] [address] 32303- 4770 Mar, Bipolar I disorder, most recent episode (or current) mixed, moderate F31.62 [facility] [address] [place] [address] 32215- 1396 Mar, [facility] [id number] [place] [address] 38803- 8880 Mar, Bipolar I disorder, most recent episode (or current) mixed, moderate F31.62 [facility] [id number] [place] [address] 52895- 6807 Mar, Chronic pain G89.29 [facility] [address], [place] [address]- 1765 Mar, Bipolar I disorder, most recent episode (or current) mixed, moderate F31.62 [facility] [address], [place] [address]- 2938 Mar, Bipolar I disorder, most recent episode (or current) mixed, moderate F31.62 [facility] [id number] [place] [address] 53376- 6577 Mar, Acute pain of left knee M25.562 ; Left hip pain M25.552 ; Generalized edema R60.1 and Tongue swelling R22.0 [facility] [id number] [place] [address] 70255- 7973 Mar, [facility] [id number] [place] [address] 03528- 1271 Feb, Chronic pain G89.29 [facility] [id number] [place] [address] 74479- 8994 Feb, Diabetes E11.9 [facility] [id number] [place] [address] 39028- 3494 January, Chronic pain G89.29 [facility] [address] [place] [address] 96762- 8165 January, [facility] [id number] [place] [address] 43371- 1146 January, Bipolar I disorder, most recent episode (or current) mixed, moderate F31.62 [facility] [id number] [place] [address] 33193- 6581 Dec, Bipolar I disorder, most recent episode (or current) mixed, moderate F31.62 [facility] [address] [place] [address] 52633- 5668 Dec, Chronic pain G89.29 [facility] [address] [address]- 5247 Dec, Bipolar I disorder, most recent episode (or current) mixed, moderate F31.62 [facility] [id number] [place] [address] 40660- 8664 Dec, Diabetes E11.9 ; Essential hypertension I10 ; Chronic pain G89.29 and Morbid obesity E66.01 [facility] [id number] [place] [address] 44169- 2946 Dec, [facility] [id number] [place] [address] 04026- 4599 Dec, Bipolar I disorder, most recent episode (or current) mixed, moderate F31.62 [facility] [id number] [place] [address] 46221- 9027 Dec, Bipolar I disorder, most recent episode (or current) mixed, moderate F31.62 [facility] [id number] [place] [address] 97342- 3929 Nov, Chronic pain G89.29 [facility] [id number] [place] [address] 27065- 6643 Nov, Bipolar I disorder, most recent episode (or current) mixed, moderate F31.62 [facility] [address] [place] [address] 62935- 1743 Nov, [facility] [id number] [place] [address] 41897- 5538 Nov, Bipolar I disorder, most recent episode (or current) mixed, moderate F31.62 [facility] [id number] [place] [address] 89469- 5178 Nov, Bipolar I disorder, most recent episode (or current) mixed, moderate F31.62 [facility] [address] [place] [address] 45888- 8882 Nov, [facility] [id number] [place] [address] 85538- 2190 Nov, [facility] [address], [place] [address]- 4943 Nov, [facility] [address] [place] [address] 09884- 9886 Oct, Chronic pain G89.29 [facility] [address] [place] [address] 67667- 4294 Oct, Bipolar I disorder, most recent episode (or current) mixed, moderate F31.62 [facility] [address], [place] [address]- 5031 Oct, [facility] [id number] [place] [address] 87265- 5363 Oct, Chronic pain G89.29 ; Diabetes E11.9 ; Anxiety F41.9 and 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 [facility] [address] [place] [address] 32749- 9042 Oct, [facility] [address] [place] [address] 50678- 2214 Oct, Diabetes E11.9 [facility] [address] [place] [address] 26545- 7156 Oct, Bipolar I disorder, most recent episode (or current) mixed, moderate F31.62 [facility] [address], [place] [address]- 4543 Sep, Chronic pain G89.29 [facility] [address], [place] [address]- 2432 Sep, Chronic pain G89.29 [facility] [address] [place] [address] 55911- 0106 Aug, Chronic pain G89.29 [facility] [address], [place] [address]- 0162 Jul, [facility] [id number] [place] [address] 92408- 0682 Jul, Diabetes E11.9 [facility] [id number] [place] [address] 94509- 4160 Jul, Chronic pain G89.29 [facility] [id number] [place] [address] 15135- 1475 Jul, Bipolar I disorder, most recent episode (or current) mixed, moderate F31.62 [facility] [id number] [place] [address] 19379- 7089 Jun, Bipolar I disorder, most recent episode (or current) mixed, moderate F31.62 [facility] [id number] [place] [address] 61619- 3074 Jun, [facility] [id number] [place] [address] 20231- 5415 Jun, Bipolar I disorder, most recent episode (or current) mixed, moderate F31.62 [facility] [id number] [place] [address] 24043- 0420 30 May, 2016 Insomnia, unspecified type G47.00 [facility] [id number] [place] [address] 59161- 3518 May, Bipolar I disorder, most recent episode (or current) mixed, moderate F31.62 [facility] [id number] [place] [address] 11517- 1548 14 May, 2016 [facility] [id number] [place] [address] 76817- 1738 08 May, 2016 Bipolar I disorder, most recent episode (or current) mixed, moderate F31.62 [facility] [id number] [place] [address] 95713- 1639 06 May, 2016 Diabetes E11.9 and Essential hypertension I10 [facility] [id number] [place] [address] 80645- 7381 Apr, Chronic pain G89.29 [facility] [address], [place] [address]- 9957 Apr, Bipolar I disorder, most recent episode (or current) mixed, moderate F31.62 [facility] [address] [place] [address] 14098- 1450 Apr, [facility] [id number] [place] [address] 48864- 8331 Apr, [facility] [id number] [place] [address] 90218- 9692 Mar, Chronic pain G89.29 ; Headache, unspecified headache type R51 ; Neuropathy G62.9 ; Pain of right hip joint M25.551 and Essential hypertension I10 [facility] [id number] [place] [address] 04963- 5898 Mar, Chronic pain G89.29 [facility] [id number] [place] [address] 46921- 8832 Mar, Bipolar I disorder, most recent episode (or current) mixed, moderate F31.62 [facility] [id number] [place] [address] 84749- 7956 Feb, Bipolar I disorder, most recent episode (or current) mixed, moderate F31.62 and Insomnia, unspecified type G47.00 [facility] [address] [place] [address] 56056- 9135 Feb, Chronic pain G89.29 [facility] [address] [place] [address] 04816- 1706 Feb, Bipolar I disorder, most recent episode (or current) mixed, moderate F31.62 [facility] [id number] [place] [address] 56980- 4357 January, Bipolar I disorder, most recent episode (or current) mixed, moderate F31.62 [facility] [id number] [place] [address] 49684- 2326 January, Chronic pain G89.29 [facility] [id number] [place] [address] 49447- 7357 January, Chronic pain G89.29 and Essential hypertension I10 [facility] [id number] [place] [address] 00213- 8009 January, Bipolar I disorder, most recent episode (or current) mixed, moderate F31.62 [facility] [address] 03162- 2571 Dec, [facility] [address] 53248- 5000 Dec, [facility] [address] 89002- 3340 Dec, [facility] [address] 02638- 2567 Dec, [facility] [address] 63585- 8876 Nov, Reactive airway disease J45.909 [facility] [address] 31798- 6791 Nov, [facility] [id number] [place] [address] 57487- 4414 Nov, [facility] [id number] [place] [address] 67208- 8834 Nov, [facility] [id number] [place] [address] 98054- 9344 Nov, [facility] [id number] [place] [address] 60755- 6922 Nov, Onychomycosis B35.1 ; Hammertoe M20.40 ; [place] or callus L84 and DM neuro manif type II E11.49 [facility] [id number] [place] [address] 28566- 4327 Nov, Chronic pain G89.29 ; Leukocytosis D72.829 and Diabetes E11.9 [facility] [id number] [place] [address] 35400- 2975 Nov, [facility] [id number] [place] [address] 08801- 8096 Oct, Bronchitis J40 [facility] [address] 14270- 5182 Oct, [facility] [address] 55341- 4974 Oct, [facility] [address] 79946- 3347 Oct, Mastoiditis, unspecified laterality H70.90 and Type 2 diabetes mellitus with complication E11.8 [facility] [address] 15629- 2641 Sep, [facility] [address] 62519- 8734 Sep, Dysuria R30.0 ; Cough R05 ; Benign prostatic hyperplasia with lower urinary tract symptoms, unspecified morphology N40.1 ; Hypokalemia E87.6 and Eustachian tube dysfunction, unspecified laterality H69.80 [facility] [id number] [place] [address] 49995- 2511 Sep, Moderate mixed bipolar I disorder F31.62 [facility] [id number] [place] [address] 11607- 3731 Sep, Hypokalemia E87.6 [facility] [id number] [place] [address] 37448- 7151 Sep, [facility] [id number] [place] [address] 50433- 1934 Sep, Upper respiratory tract infection, unspecified type J06.9 [facility] [id number] [place] [address] 34457- 7481 Aug, [facility] [address] [place] [address]- 8220 Aug, Dysuria R30.0 [facility] [address] [address] Aug, [facility] [id number], [place] [address] Jul, [facility] [id number] [place] [address] [id number]- [address] Jul, [facility] [id number] [place] [address]- [address]31 Jul, [facility] [id number] [place] [address] 9[address]73- [address] Jul, [facility] [id number] [place] [address] 30933- 0881 Jun, [facility] [id number] [place] [address] 94830- [address] Jun, [facility] [id number] [place] [address] 21951- 1707 Jun, [facility] [address], [place] [address] May, [facility] [address], [place] [address] May, Bipolar I disorder, most recent episode (or current) mixed, moderate 296.62 [facility] [id number] [place] [address] 16 May, 2015 [facility] [id number] [address] 02 May, 2015 Bipolar I disorder, most recent episode (or current) mixed, moderate 296.62 and Major depressive disorder, recurrent episode, severe, specified as with psychotic behavior 296.34 [facility] [address] [id number] [place] [address] 10120- 2135 May, Bipolar I disorder, most recent episode (or current) mixed, moderate 296.62 [facility] [id number] [place] [address] 70789- 1811 May, [facility] [id number] [place] [address] 74824- 7856 Apr, [facility] [id number] [place] [address] 46398- 6086 Apr, [facility] [id number] [place] [address] 26188- 7713 Apr, Unspecified disorder of kidney and ureter 593.9 and Diabetes mellitus type 2, uncontrolled 250.02 [facility] [id number] [place] [address] 62497- 3040 Apr, [facility] [id number] [place] [address] 41814- 3174 Apr, [facility] [id number] [place] [address] 34405- 2347 Apr, [facility] [id number] [place] [address] 05424- 2036 Apr, [facility] [id number] [place] [address] 15970- 1652 Apr, Diabetes mellitus type II, uncontrolled 250.02 [facility] [id number] [place] [address] 03610- 4145 Apr, [facility] [id number] [place] [address] 60355- 9990 Mar, [facility] [id number] [place] [address] 17513- 2642 Mar, [facility] [id number] [place] [address] 40579- 4381 Mar, [facility] [id number] [place] [address] 48269- 7844 Mar, Major depressive disorder, recurrent episode, severe, specified as with psychotic behavior 296.34 and Bipolar I disorder, most recent episode (or current) mixed, moderate 296.62 [facility] [id number] [place] [address] 94647- 7006 Mar, Diabetes 250.00 ; Anuria 788.5 ; Nausea and vomiting 787.01 and Diarrhea 787.91 [facility] [id number] [place] [address] 40832- 6708 Mar, Diabetes 250.00 [facility] [id number] [place] [address] 72016- 7627 Mar, [facility] [id number] [place] [address] 08941- 9248 Mar, Diabetes 250.00 [facility] [id number] [place] [address] 94012- 0655 Mar, [facility] [id number] [place] [address] 39456- 4229 Mar, [facility] [id number] [place] [address] 19074- 0413 Mar, [facility] [id number] [place] [address] 43778- 9500 Mar, [facility] [id number] [place] [address] 51154- 2164 Mar, Bipolar I disorder, most recent episode (or current) mixed, moderate 296.62 and Major depressive disorder, recurrent episode, severe, specified as with psychotic behavior 296.34 [facility] [id number] [place] [address] 91091- 5144 Mar, Magnesium deficiency 275.2 ; Hypokalemia 276.8 ; Nausea & vomiting 787.01 and Diabetes mellitus type 2, uncontrolled 250.02 [facility] [address] [address]- 3381 Feb, [facility] [id number] [place] [address] 14278- 0078 Feb, Bipolar I disorder, most recent episode (or current) mixed, moderate 296.62 [facility] [id number] [place] [address] 10578- 7448 Feb, Nausea and vomiting 787.01 ; Left elbow pain 719.42 ; Anuria 788.5 and Diabetes 250.00 [facility] [id number] [place] [address] 81939- 8384 Feb, [facility] [id number] [place] [address] 04406- 2253 Feb, Hypopotassemia 276.8 and Hypokalemia 276.8 [facility] [id number] [place] [address] 74715- 9222 Feb, Hypopotassemia 276.8 and Hypokalemia 276.8 [facility] [id number] [place] [address] 86263- 7156 Feb, Seborrheic keratoses 702.19 [facility] [id number] [place] [address] 85665- 1302 Feb, Hypopotassemia 276.8 and Low magnesium levels 275.2 [facility] [id number] [place] [address] 78427- 7136 January, [facility] [id number] [place] [address] 12298- 7792 January, [facility] [id number] [place] [address] 90205- 9003 January, [facility] [id number] [place] [address] 56874- 8734 January, Scalp lesion 709.9 [facility] [id number] [place] [address] 43657- 5408 January, [facility] [id number] [place] [address] 43069- 8394 30 Dec, 2014 Tear of medial cartilage or meniscus of knee, current 836.0 and 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 [facility] [address] [facility] [id number] [address]- 2836 Dec, [facility] [address] [facility] [id number], [place] [address]- 4976 Dec, [facility] [address] [facility] [id number], [place] [address]- 7859 Dec, Squamous cell carcinoma, 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 [facility] [address] [facility] [id number] [place] [address]- 3356 14 Dec, 2014 [facility] [address] [id number] 8382 Dec, [facility] [address] [id number] [address]- 8370 Nov, [facility] [address] [facility] [id number], [place] [address]- 8224 Nov, [facility] [address] [facility] [id number], [place] [address]- 9596 Nov, [facility] [address] [facility] [id number], [place] [address]- 7711 Nov, [facility] [address] [id number] 9168 Nov, [facility] [address] [facility] [id number] 7036 Nov, [facility] [address] [facility] [id number] 2291 Nov, [facility] [address] [facility] [id number], [place] [address]- 9035 Nov, [facility] [address] [id number], [place] [address]- 2359 Nov, [facility] [address] [facility] [id number] [place] [address]- 8967 Nov, [facility] [place] [facility] [address] [id number] [place] [address]- 8328 Nov, [facility] [place] [facility] [address] [id number] [place] [address]- 5537 Nov, [facility] [place] [facility] [address] [id number] [place] [address]- 9231 Oct, 2014 [facility] [place] [facility] [address] [id number] [place] [address]- 5635 Oct, 2014 [facility] [place] [facility] [address] [id number] [place] [address]- 5237 Oct, 2014 [facility] [place] [facility] [address] [facility] [id number] [place] [address]- 4383 Oct, 2014 [facility] [place] [facility] [address] [facility] [id number] [place] [address]- 2802 Oct, 2014 [facility] [place] [facility] [address] [facility] [id number] [place] [address]- 8697 Oct, [facility] [place] [facility] [address] [facility] [id number] [place] [address]- 0105 Oct, [facility] [place] [facility] [address] [facility] [id number] [place] [address]- 9181 Oct, [facility] [place] [facility] [address] [facility] [id number], [place] [address]- 4587 Oct, [facility] [place] [facility] [address] [facility] [id number] [place] [address]- 4344 Sep, [facility] [place] [facility] [address] [id number] [place] [address]- 3555 Sep, [facility] [place] [facility] [address] [facility] [id number] [place] [address]- 3513 Sep, [facility] [place] [facility] [address] [facility] [id number], [place] [address]- 2546 Sep, [facility] [place] [facility] [address] [id number] [place] [address]- 7702 Sep, [facility] [place] [facility] [address] [id number] [place] [address]- 8219 Sep, [facility] [place] [facility] [address] [id number] [place] [address]- 8054 Sep, [facility] [place] [facility] [address] [id number] [place] [address]- 2250 Sep, [facility] [place] [facility] [address] [id number] [place] [address]- 4444 Sep, [facility] [place] [facility] [address] [id number] [place] [address]- 1631 Sep, [facility] [place] [facility] [address] [id number] [place] [address]- 1537 Sep, [facility] [place] [facility] [address] [id number] [place] [address]- 7480 Sep, [facility] [place] [facility] [address] [id number] [place] [address]- 8988 Sep, [facility] [place] [facility] [address] [id number] [place] [address]- 6097 Sep, [facility] [place] [facility] [address] [id number] [place] [address]- 3399 Sep, [facility] [place] [facility] [address] [id number] [place] [address]- 7847 Sep, [facility] [place] [facility] [address] [id number] [place] [address]- 5422 Aug, [facility] [place] [facility] [address] [id number] [place] [address]- 6063 Aug, [facility] [place] [facility] [address] [id number] [place] [address]- 3616 Aug, [facility] [place] [facility] [address] [id number] [place] [address]- 8064 Aug, [facility] [address] [id number] [place] [address]- 3475 Aug, [facility] [address] [id number] [place] [address]- 9213 Aug, [facility] [address] [id number] [place] [address]- 5008 Aug, [facility] [address] [id number] [place] [address]- 1029 Aug, [facility] [address] [id number] [place] [address]- 3320 Aug, [facility] [address] [id number] [place] [address]- 2852 Aug, [facility] [address] [id number] [place] [address]- 2289 Aug, [facility] [address] [place] [id number] Aug, [facility] [address] [id number] [place] [address]- 7112 Aug, [facility] [address] [id number] [place] [address]- 5513 Aug, [facility] [address] [id number] [place] [address]- 5365 Aug, [facility] [address] [id number] [place] [address]- 6919 Aug, [facility] [address] [id number] [place] [address]- 1305 Aug, [facility] [address] [id number] [place] [address]- 1413 Aug, [facility] [address] [id number] [place] [address]- 9051 Aug, [facility] [place] [facility] [address] [id number] [place] [address]- 2915 08 Aug, 2014 [facility] [place] [facility] [address] [id number] [place] 9408 Aug, [facility] [place] [facility] [address] [id number] [place] [address]- 4637 Aug, [facility] [place] [facility] [address] [id number] [place] [address]- 9447 Aug, [facility] [place] [facility] [address] [id number] [place] [address]- 4911 Aug, [facility] [place] [facility] [address] [id number] [place] [address]- 1754 Aug, [facility] [place] [facility] [address] [id number] [place] 8874 Aug, [facility] [place] [facility] [address] [id number] [place] [address]- 5336 Aug, [facility] [place] [facility] [address] [id number] [place] [address]- 8872 Aug, [facility] [place] [facility] [address] [id number] [place] [address]- 4111 Aug, [facility] [place] [facility] [address] [id number] [place] [address]- 6497 Aug, [facility] [place] [facility] [address] [id number] [place] [address]- 6558 Jul, [facility] [place] [facility] [address] [id number] [place] [address]- 4395 Jul, [facility] [place] [facility] [address] [id number] [place] [address]- 3850 Jul, [facility] [place] [facility] [address] [id number] [place] [address]- 1663 Jul, [facility] [place] [facility] [address] [id number] [place] [address]- 3490 Jul, [facility] [place] [facility] [address] [id number] [place] [address]- 4435 Jul, [facility] [place] [facility] [address] [id number] [place] 7638 Jul, [facility] [place] [facility] [address] [id number] [place] [address]- 2604 Jul, [facility] [place] [facility] [address] [id number] [place] [address]- 2921 Jul, [facility] [place] [facility] [address] [id number] [place] [address]- 2088 Jul, [facility] [place] [facility] [address] [id number] [place] [address]- 5775 Jun, [facility] [place] [facility] [address] [id number] [place] [address]- 9178 Jun, [facility] [place] [facility] [address] [id number], [place] [address]- 4975 Jun, [facility] [place] [facility] [address] [id number], [place] [address]- 8027 Jun, [facility] [place] [facility] [address] [id number], [place] [address]- 5837 Jun, [facility] [place] [facility] [address] [id number], [place] [address]- 1456 Jun, [facility] [place] [facility] [address] [id number], [place] [address]- 0403 Jun, [facility] [place] [facility] [address] [id number], [place] [address]- 8663 Jun, [facility] [place] [facility] [address] [id number], [place] [address]- 6733 Jun, [facility] [place] [facility] [address] [id number][place] 1895 Jun, [facility] [place] [facility] [address] [id number] [place] [address] 2546 29 Sep, 2013 [facility] [place] [facility] [address] [id number] [place] [address] 2546 29 Sep, 2013 [facility] [place] [facility] [address] [id number] [place] [address] 2546 26 Sep, 2013 [facility] [place] [facility] [address] [id number] [place] [address] 2546 26 Sep, 2013 [facility] [place] [facility] [address] [id number] [place] [address] 2546 17 Sep, 2013 [facility] [place] [facility] [address] [id number] [place] [address] 254 17 Sep, 2013 [facility] [place] [facility] [address] [id number] [place] [address] 2542 15 Sep, 2013 [facility] [place] [facility] [address] [id number] [place] [address] 2546 15 Sep, 2013 [facility] [place] [facility] [address] [id number] [place] [address] 2544 15 Sep, 2013 [facility] [place] [facility] [address] [id number] [place] [address] 2549 15 Sep, 2013 [facility] [place] [facility] [address] [id number] [place] [address] 2544 10 Sep, 2013 [facility] [place] [facility] [address] [id number] [place] [address] 2546 10 Sep, 2013 [facility] [place] [facility] [address] [id number] [place] [address] 2546 09 Sep, 2013 [facility] [place] [facility] [address] [id number] [place] [address] 2546 09 Sep, 2013 [facility] [place] [facility] [address] [id number] [place] [address] 2546 04 Sep, 2013 [facility] [place] [facility] [address] [id number] [place] [address] 2541 May, [facility] [place] [facility] [address] [id number] [place] [address]- 9782 Apr, [facility] [place] [facility] [address] [id number] [place] [address]- 2579 Apr, [facility] [place] [facility] [address] [id number] [place] [address]- 1340 Apr, [facility] [place] [facility] [address] [id number] [place] [address]- 4541 Apr, [facility] [place] [facility] [address] [id number] [place] [address]- 4523 Apr, [facility] [place] [facility] [address] [id number] [place] [address]- 3410 Apr, [facility] [place] [facility] [address] [id number] [place] [address]- 2448 Apr, [facility] [place] [facility] [address] [id number] [place] [address]- 1102 Apr, [facility] [place] [facility] [address] [id number] [place] [address]- 9605 Apr, [facility] [place] [facility] [address] [id number] [place] [address]- 3033 Apr, [facility] [place] [facility] [address] [id number] [place] [address]- 0422 Apr, [facility] [place] [facility] [address] [id number] [place] [address]- 3451 Apr, [facility] [place] [facility] [address] [id number] [place] [address]- 1009 Apr, [facility] [place] [facility] [address] [id number] [place] [address]- 6080 Apr, [facility] [place] [facility] [address] [id number] [place] [address]- 0838 Apr, [facility] [place] [facility] [address] [id number] [place] [address]- 9714 Mar, 2013 [facility] [place] [facility] [address] [id number] [place] [address]- 2713 Mar, 2013 [facility] [place] [facility] [address] [id number] [place] [address]- 8058 Mar, 2013 [facility] [place] [facility] [address] [id number] [place] [address]- 1395 Mar, 2013 [facility] [place] [facility] [address] [id number] [place] [address]- 9407 Mar, 2013 [facility] [place] [facility] [address] [id number] [place] [address]- 3671 Mar, 2013 [facility] [place] [facility] [address] [id number] [place] [address]- 4122 Mar, 2013 [facility] [place] [facility] [address] [id number] [place] [address]- 9562 Mar, 2013 [facility] [place] [facility] [address] [id number] [place] [address]- 0046 Mar, 2013 [facility] [place] [facility] [address] [id number] [place] [address]- 8742 Mar, 2013 [facility] [place] [facility] [address] [id number] [place] [address]- 1181 Mar, 2013 [facility] [place] [facility] [address] [id number] [place] [address]- 4128 Mar, 2013 [facility] [place] [facility] [address] [id number] [place] [address]- 1263 Mar, 2013 [facility] [place] [facility] [address] [id number] [place] [address]- 0435 Mar, 2013 [facility] [place] [facility] [address] [id number] [place] [address]- 3998 Mar, 2013 [facility] [place] [facility] [address] [id number] [place] [address]- 9622 Mar, 2013 [facility] [place] [facility] [address] [id number] [place] [address]- 6340 Mar, [facility] [place] [facility] [address] [id number] [place] [address]- 7388 Mar, [facility] [place] [facility] [address] [id number] [place] [address]- 5481 Feb, [facility] [place] [facility] [address] [id number] [place] [address]- 5186 Feb, [facility] [place] [facility] [address] [id number] [place] [address]- 2683 Feb, [facility] [place] [facility] [address] [id number] [place] [address]- 8246 Feb, [facility] [place] [facility] [address] [id number] [place] [address]- 5586 Feb, [facility] [place] [facility] [address] [id number] [place] [address]- 2644 Feb, [facility] [place] [facility] [address] [id number] [place] [address]- 1897 Feb, [facility] [place] [facility] [address] [id number] [place] [address]- 2891 Feb, [facility] [place] [facility] [address] [id number] [place] [address]- 6588 Feb, [facility] [place] [facility] [address] [id number] [place] [address] Feb, [facility] [place] [facility] [address] [id number] [place] [address] Feb, [facility] [place] [facility] [address] [id number] [place] [address] Feb, [facility] [place] [facility] [address] [id number] [place] [address] Feb, [facility] [place] [facility] [address] [id number] [place] [address] Feb, [facility] [place] [facility] [address] [id number] [place] [address] January, [facility] [place] [facility] [address] [id number] [place] [address] January, [facility] [place] [facility] [address] [id number] [place] [address] January, [facility] [place] [facility] [address] [id number] [place] [address] January, [facility] [place] [facility] [address] [id number] [place] [address] January, [facility] [place] [facility] [address] [id number] [place] [address] January, [facility] [place] [facility] [address] [id number] [place] [address]35 January, [facility] [place] [facility] [address] [id number] [place] [address] 4[address] January, [facility] [place] [facility] [address] [id number] [place] [address] 9[address] January, [facility] [place] [facility] [address] [id number] [place] [address] 3940 January, [facility] [place] [facility] [address] [id number] [place] [address] January, [facility] [place] [facility] [address] [id number] [place] [address]- 67[address] January, [facility] [place] [facility] [address] [id number] [place] [address] 69[address] January, [facility] [place] [facility] [address] [id number] [place] [address]- [address] January, [facility] [place] [facility] [address] [id number] [place] [address] Dec, [facility] [place] [facility] [address] [id number] [place] [address]682 Dec, [facility] [place] [facility] [address] [id number] [place] [address] Dec, [facility] [place] [facility] [address] [id number] [place] [address] Dec, [facility] [place] [facility] [address] [id number] [place] [address] Dec, [facility] [place] [facility] [address] [id number] [place] [address] 39[address] Dec, [facility] [place] [facility] [address] [id number] [place] [address] 1108 Dec, [facility] [place] [facility] [address] [id number] [place] [address] 98[address] Dec, [facility] [place] [facility] [address] [id number] [place] [address]- [address] Dec, [facility] [place] [facility] [address] [id number] [place] [address] 72[address] Dec, [facility] [place] [facility] [address] [id number] [place] [address] Nov, [facility] [place] [facility] [address] [id number] [place] [address] Nov, [facility] [place] [facility] [address] [id number] [place] [address] Nov, [facility] [place] [facility] [address] [id number] [place] [address]- 8954 Nov, [facility] [place] [facility] [address] [id number] [place] [address]- 0476 Nov, [facility] [place] [facility] [address] [id number] [place] [address] 47[address] Nov, [facility] [place] [facility] [address] [id number] [place] [address] Nov, [facility] [place] [facility] [address] [id number] [place] [address] 1370 Nov, [facility] [place] [facility] [address] [id number] [place] [address] Nov, [facility] [place] [facility] [address] [id number] [place] [address]- [address] Nov, [facility] [place] [facility] [address] [id number] [place] [address] Oct, [facility] [place] [facility] [address] [id number] [place] [address] Oct, [facility] [place] [facility] [address] [id number] [place] [address]- [address] Oct, [facility] [place] [facility] [address] [id number] [place] [address] 46[address] Oct, [facility] [place] [facility] [address] [id number] [place] [address] 4[address] Oct, [facility] [place] [facility] [address] [id number] [place] [address] Oct, [facility] [place] [facility] [address] [id number] [place] [address] 67[address] Oct, [facility] [place] [facility] [address] [id number] [place] [address] 3508 Oct, [facility] [place] [facility] [address] [id number] [place] [address] 8111 Oct, [facility] [place] [facility] [address] [id number] [place] [address] 1602 Oct, [facility] [place] [facility] [address] [id number] [place] [address] 9673 Oct, [facility] [place] [facility] [address] [id number] [place] [address]677 Oct, [facility] [place] [facility] [address] [id number] [place] [address] Oct, [facility] [address] [id number] [place] [address]598 Oct, [facility] [address] [id number] [place] [address] Sep, [facility] [address] [id number] [place] [address]- 267[address] Sep, [facility] [address] [id number] [place] [address]- [address] 15 Sep, 2013 [facility] [address] [id number] [place] [address]- [address] 15 Sep, 2013 [facility] [facility] [address] [id number] [place] [address] Sep, [facility] [address] [id number] [place] [address] Sep, [facility] [address] [id number] [place] [address] 1314 Sep, [facility] [address] [id number] [place] [address] 74[address] Sep, [facility] [address] [id number] [place] [address]69 Sep, [facility] [address] [id number] [place] [address] 1792 Sep, [facility] [address] [id number] [place] [address] 9080 Aug, [facility] [place] [facility] [address] [id number] [place] [address] Aug, [facility] [place] [facility] [address] [id number] [place] [address] 0349 Jul, [facility] [address] [id number] [place] [address] 2373 Jul, [facility] [place] [facility] [address] [id number] [place] [address]- 4484 Jul, [facility] [place] [facility] [address] [id number] [place] [address] 2397 Jul, [facility] [place] [facility] [address] [id number] [place] [address]- 0452 Jul, [facility] [place] [facility] [address] [id number] [place] [address] 9848 Jul, [facility] [place] [facility] [address] [id number] [place] [address]- 0720 Jul, [facility] [place] [facility] [address] [id number] [place] [address]- 1761 Jul, [facility] [place] [facility] [address] [id number] [place] [address]- 2256 Jul, [facility] [place] [facility] [address] [id number], [place] [address] 405[address] Jul, [facility] [place] [facility] [address] [id number], [place] [address] 1668 Jul, [facility] [place] [facility] [address] [id number], [place] [address] Jul, [facility] [place] [facility] [address] [id number], [place] [address] 0766 Jul, [facility] [place] [facility] [address] [id number], [place] [address] 8[address] Jul, [facility] [place] [facility] [address] [id number], [place] [address] 8251 Jul, [facility] [place] [facility] [address] [id number], [place] [address] 2731 Jul, [facility] [place] [facility] [address] [id number], [place] [address] 6715 Jul, [facility] [place] [facility] [address] [id number], [place] [address] 2543 Jul, 2012 [facility] [place] [facility] [address] [id number] [place] [address]- 7313 Jul, 2012 [facility] [place] [facility] [address] [id number] [place] [address]- 0635 Jun, 2012 [facility] [place] [facility] [address] [id number] [place] [address]- 7693 Jun, 2012 [facility] [place] [facility] [address] [id number] [place] [address]- 9451 Jun, 2012 [facility] [place] [facility] [address] [id number] [place] [address]- 2914 Jun, 2012 [facility] [place] [facility] [address] [id number] [place] [address] Jun, 2012 [facility] [place] [facility] [address] [id number] [place] [address]- 0559 Jun, 2012 [facility] [place] [facility] [address] [id number] [place] [address]- 8195 Jun, [facility] [place] [facility] [address] [id number] [place] [address]- 7867 Jun, [facility] [place] [facility] [address] [id number] [place] [address]- 3790 Jun, [facility] [place] [facility] [address] [id number], [place] [address] 54[address] Jun, [facility] [place] [facility] [address] [id number], [place] [address] 6327 Jun, [facility] [place] [facility] [address] [id number] [place] [address]- 4767 May, 2012 [facility] [place] [facility] [address] [id number] [place] [address]- 1686 25 May, 2012 [facility] [place] [facility] [address] [id number] [place] [address]- 5758 19 May, 2012 [facility] [place] [facility] [address] [id number] [place] [address]- 8496 17 May, 2012 [facility] [place] [facility] [address] [id number] [place] [address]- 7256 11 May, 2013 [facility] [place] [facility] [address] [id number] [place] [address]- 1716 10 May, 2012 [facility] [place] [facility] [address] [id number] [place] [address]- 2466 09 May, 2013 [facility] [place] [facility] [address] [id number] [place] [address]- 1725 05 May, 2013 [facility] [place] [facility] [address] [id number] [place] [address]- 9156 Apr, [facility] [place] [facility] [address] [id number] [place] [address]- 8377 Apr, [facility] [place] [facility] [address] [id number] [place] [address]- 1473 Apr, [facility] [place] [facility] [address] [id number] [place] [address]- 7868 Apr, [facility] [place] [facility] [address] [id number] [place] [address]- 3903 Apr, [facility] [place] [facility] [address] [id number] [place] [address] 2725 Mar, [facility] [place] [facility] [address] [id number] [place] [address]- 0085 Mar, [facility] [place] [facility] [address] [id number] [place] [address]- 1542 Mar, [facility] [place] [facility] [address] [id number] [place] [address]- 6814 Mar, [facility] [place] [facility] [address] [id number] [place] [address]- 0946 Mar, [facility] [place] [facility] [address] [id number] [place] [address]- 5786 Mar, [facility] [address] [id number] [place] [address]- 2658 Mar, [facility] [place] [facility] [address] [id number] [place] [address]- 0427 Mar, [facility] [place] [facility] [address] [id number] [place] [address]- 1101 Feb, [facility] [place] [facility] [address] [id number] [place] [address]- 0721 Feb, [facility] [place] [facility] [address] [id number] [place] [address]- 1048 January, [facility] [place] [facility] [address] [id number] [place] [address]- 7078 January, [facility] [place] [facility] [address] [id number] [place] [address]- 0350 Dec, [facility] [place] [facility] [address] [id number] [place] [address]- 4203 Dec, [facility] [place] [facility] [address] [id number] [place] [address]- 5207 Nov, [facility] [place] [facility] [address] [id number] [place] [address]- 1227 Nov, [facility] [place] [facility] [address] [id number] [place] [address]- 0448 Nov, [facility] [place] [facility] [address] [id number], [place] [address]- 7[address] Nov, [facility] [place] [facility] [address] [id number] [place] [address]- 5944 Oct, [facility] [place] [facility] [address] [id number] [place] [address]- 7956 Oct, [facility] [place] [facility] [address] [id number] [place] [address]- 9523 Oct, [facility] [place] [facility] [address] [id number] [place] [address]- 5612 26 Oct, 2012 [facility] [address] [id number] [place] [address]- 0196 16 Oct, 2012 [facility] [place] [facility] [address] [id number] [place] [address] 2546 14 Oct, 2012 [facility] [address] [id number] [place] [address] 2546 08 Oct, 2012 [facility] [place] [facility] [address] [id number] [place] [address] 254 07 Oct, 2012 [facility] [address] [id number] [place] [address]- 0756 03 Oct, 2012 [facility] [address] [id number] [place] [address]- 1456 30 Sep, 2012 [facility] [address] [id number] [place] [address]- 2685 29 Sep, 2012 [facility] [address] [id number] [place] [address]- 9798 Sep, [facility] [address] [id number] [place] [address]- 2630 Sep, [facility] [address] [id number] [place] [address]- 5554 17 Sep, 2012 [facility] [address] [id number] [place] [address]- 7203 Sep, [facility] [address] [id number] [place] [address] 2545 09 Sep, 2012 [facility] [place] [facility] [address] [id number] [place] [address]- 1891 08 Sep, 2012 [facility] [place] [facility] [address] [id number] [place] [address] 2541 31 Aug, 2012 [facility] [place] [facility] [address] [id number] [place] [address]- 6946 Aug, [facility] [place] [facility] [address] [id number] [place] [address]- 5828 Aug, [facility] [place] [facility] [address] [id number] [place] [address]- 6308 Aug, [facility] [place] [facility] [address] [facility] [id number] [place] [address]- 1272 Aug, [facility] [place] [facility] [address] [id number] [place] [address]- 5134 Aug, [facility] [place] [facility] [address] [id number] [place] [address]- 1671 Aug, [facility] [place] [facility] [address] [id number] [place] [address]- 7150 Aug, [facility] [place] [facility] [address] [id number] [place] [address]- 5414 Jul, [facility] [place] [facility] [address] [id number] [place] [address]- 9396 Jul, [facility] [place] [facility] [address] [id number] [place] [address]- 5523 Jul, [facility] [place] [facility] [address] [id number] [place] [address]- 2031 Jul, [facility] [place] [facility] [address] [id number], [place] [address]- 8224 Jul, [facility] [place] [facility] [address] [id number], [place] [address]- 3158 Jul, [facility] [place] [facility] [address] [id number], [place] [address]- 2478 Jun, [facility] [place] [facility] [address] [id number], [place] [address]- 3639 Jun, [facility] [place] [facility] [address] [facility] [id number], [place] [address]- 5084 Jun, [facility] [place] [facility] [address] [id number] [place] [address]- 5966 23 Jun, 2012 [facility] [place] [facility] [address] [id number] [place] [address]- 2640 22 Jun, 2012 [facility] [place] [facility] [address] [id number] [place] [address]- 8776 19 Jun, 2012 [facility] [place] [facility] [address] [id number] [place] [address]- 8406 Jun, [facility] [place] [facility] [address] [id number] [place] [address]- 5001 10 Jun, 2012 [facility] [place] [facility] [address] [id number] [place] [address]- 5907 10 Jun, 2012 [facility] [place] [facility] [address] [id number] [place] [address]- 7619 26 May, 2012 [facility] [place] [facility] [address] [id number] [place] [address]- 9178 24 May, 2012 [facility] [place] [facility] [address] [id number] [place] [address]- 7284 18 May, 2012 [facility] [place] [facility] [address] [id number] [place] [address]- 8632 30 Apr, 2012 [facility] [place] [facility] [address] [id number] [place] [address]- 6381 29 Apr, 2012 [facility] [place] [facility] [address] [id number] [place] [address]- 5926 Apr, [facility] [place] [facility] [address] [id number] [place] [address]- 9252 14 Apr, 2012 [facility] [place] [facility] [address] [id number] [place] [address]- 8153 Apr, [facility] [place] [facility] [address] [id number] [place] [address]- 9383 Apr, [facility] [place] [facility] [address] [id number] [place] [address]- 6261 Mar, [facility] [place] [facility] [address] [id number] [place] [address]- 2465 Mar, [facility] [place] [facility] [address] [id number] [place] [address]- 0779 Mar, [facility] [place] [facility] [address] [id number] [place] [address]- 1080 Mar, [facility] [address] [id number] [place] [address]- 3223 Feb, [facility] [address] [id number] [place] [address]- 8218 Feb, [facility] [address] [id number] [place] [address]- 3579 Feb, [facility] [address] [id number] [place] [address]- 5256 Feb, [facility] [address] [id number] [place] [address]- 4752 Feb, [facility] [address] [id number] [place] [address]- 3975 January, [facility] [address] [id number] [place] [address]- 7249 January, [facility] [place] [facility] [address] [id number] [place] [address]- 3437 January, [facility] [place] [facility] [address] [id number] [place] [address]- 9833 January, [facility] [place] [facility] [address] [id number] [place] [address]- 1830 January, [facility] [place] [facility] [address] [id number] [place] [address]- 2064 January, [facility] [place] [facility] [address] [id number] [place] [address]- 0900 Dec, [facility] [place] [facility] [address] [id number] [place] [address]- 3144 24 Dec, 2011 [facility] [place] [facility] [address] [id number] [place] [address]- 1546 17 Dec, 2011 [facility] [place] [facility] [address] [id number] [place] [address]- 7516 09 Dec, 2011 [facility] [place] [facility] [address] [id number] [place] [address]- 0096 06 Dec, 2011 [facility] [place] [facility] [address] [id number] [place] [address]- 1308 27 Nov, 2011 [facility] [place] [facility] [address] [id number] [place] [address]- 6015 14 Nov, 2011 [facility] [place] [facility] [address] [id number] [place] [address]- 8786 Nov, [facility] [address] [facility] [id number] [place] [address]- 2720 Nov, [facility] [place] [facility] [address] [id number] [place] [address]- 8372 29 Oct, 2011 [facility] [place] [facility] [address] [id number] [place] [address]- 5987 28 Oct, 2011 [facility] [place] [facility] [address] [id number] [place] [address]- 6889 24 Oct, 2011 [facility] [place] [facility] [address] [id number] [place] [address]- 8575 Oct, [facility] [place] [facility] [address] [id number] [place] [address]- 3845 08 Oct, 2011 [facility] [place] [facility] [address] [id number] [place] [address]- 7088 Sep, [facility] [place] [facility] [address] [id number] [place] [address]- 6755 30 Sep, 2011 [facility] [place] [facility] [address] [facility] [id number] [place] [address]- 8338 Sep, [facility] [place] [facility] [address] [id number] [place] [address]- 0412 Sep, [facility] [place] [facility] [address] [id number] [place] [address]- 7834 Sep, [facility] [place] [facility] [address] [id number] [place] [address]- 1118 Sep, [facility] [place] [facility] [address] [id number] [place] [address]- 1385 Aug, [facility] [place] [facility] [address] [id number] [place] [address]- 1950 Aug, [facility] [place] [facility] [address] [id number] [place] [address]- 1136 Aug, [facility] [place] [facility] [address] [id number] [place] [address]- 4098 Jul, [facility] [place] [facility] [address] [id number] [place] [address]- 3576 Jul, [facility] [place] [facility] [address] [id number] [place] [address]- 0736 Jul, [facility] [place] [facility] [address] [id number] [place] [address]- 8529 Jul, [facility] [place] [facility] [address] [id number] [place] [address]- 0285 Jun, [facility] [place] [facility] [address] [id number] [place] [address]- 0171 Jun, [facility] [place] [facility] [address] [id number] [place] [address]- 2356 18 Jun, 2011 [facility] [place] [facility] [address] [id number] [place] [address]- 5459 Jun, [facility] [place] [facility] [address] [id number] [place] 6040 Jun, [facility] [place] [facility] [address] [id number] [place] [address]- 0242 10 Jun, 2011 [facility] [place] [facility] [address] [id number] [place] [address]- 3739 11 Mar, 2011 [facility] [place] [facility] [address] [id number] [place] [address]- 4766 18 Dec, 2010 [facility] [place] [facility] [address] [id number] [place] [address]- 2996 11 Dec, 2010 [facility] [place] [facility] [address] [id number] [place] [address]- 9366 18 Nov, 2010 [facility] [place] [facility] [address] [id number] [place] [address]- 4652 16 Nov, 2010 [facility] [place] [facility] [address] [id number] [place] [address]- 5619 10 Sep, 2010 [facility] [place] [facility] [address] [id number] [place] [address]- 2563 31 Aug, 2010 [facility] [place] [facility] [address] [id number] [place] [address]- 2727 29 Aug, 2010 [facility] [place] [facility] [address] [id number] [place] [address]- 7172 29 Aug, 2010 [facility] [place] [facility] [address] [id number] [place] [address]- 5265 29 Aug, 2010 [facility] [place] [facility] [address] [id number] [place] [address]- 5950 27 Aug, 2010 [facility] [place] [facility] [address] [id number], [place] [address] 2546 14 Aug, 2010 [facility] [place] [facility] [address] [id number] [place] [address] 2546 08 Aug, 2010 [facility] [place] [facility] [address] [id number] [place] [address] 2546 08 Aug, 2010 [facility] [place] [facility] [address] [facility] [id number] [place] [address] 2546 07 Aug, 2010 [facility] [place] [facility] [address] [id number] [place] [address]- 1225 Aug, [facility] [place] [facility] [address] [id number] [place] [address]- 3756 Aug, [facility] [place] [facility] [address] [id number] [place] [address] 2546 Aug, [facility] [place] [facility] [address] [id number] [place] [address]- 5456 Jul, [facility] [place] [facility] [address] [id number] [place] [address] 2546 Jul, [facility] [place] [facility] [address] [id number] [place] [address]- 0359 Jul, [facility] [place] [facility] [address] [id number] [place] [address]- 8217 Jul, [facility] [place] [facility] [address] [facility] [id number] [place] [address]- 4551 Jul, [facility] [place] [facility] [address] [id number] [place] [address]- 0408 Jul, [facility] [place] [facility] [address] [id number] [place] [address]- 0047 24 Jun, 2010 [facility] [place] [facility] [address] [facility] [id number] [place] [address]- 5099 Jun, [facility] [place] [facility] [address] [id number] [place] [address] 2546 Jun, [facility] [place] [facility] [address] [id number], [place] [address]- 2545 Jun, [facility] [place] [facility] [address] [id number] [place] [address]- 4990 16 Apr, 2010 [facility] [place] [facility] [address] [id number] [place] [address] 2546 Mar, [facility] [place] [facility] [address] [id number] [place] [address]- 8418 Feb, [facility] [place] [facility] [address] [id number] [place] [address]- 3183 January, [facility] [address] [id number] [place] [address] 15 Dec, 2009 [facility] [address] [id number] [place] [address] Nov, [facility] [address] [id number] [place] [address] Aug, [facility] [address] [id number] [place] [address] Aug, [facility] [address] [id number] [place] [address] Aug, [facility] [address] [facility] [id number] [place] [address] Jul, [facility] [address] [id number], [place] [address] Jul, [facility] [address] [id number] [place] [address] Jul, [facility] [address] [facility] [id number], [place] [address] 30 Jun, 2009 [facility] [place] [facility] [address] [facility] [id number], [place] [address] 29 Jun, 2009 [facility] [place] [facility] [address] [id number], [place] [address] Jun, [facility] [place] [facility] [address] [id number], [place] [address] Jun, [facility] [place] [facility] [address] [id number], [place] [address] Jun, [facility] [place] [facility] [address] [id number][place] [address] Jun, [facility] [place] [facility] [address] [id number], [place] [address] Apr, [facility] [address] [facility] [id number], [place] [address] Apr, [facility] [address] [facility] [id number], [place] [address] Feb, [facility] [address] [facility] [id number], [place] [address] January, [facility] [address] [facility] [id number], [place] [address] Dec, IMMUNIZATIONS No Known Immunizations SOCIAL HISTORY Never Assessed REASON FOR VISIT BH intake. Helio VALLADARES PLAN OF CARE Activity Details Follow Up 2 Months Reason: VITAL SIGNS Height 67 in 2017-06-21 Weight 367 lbs 2017-06-21 Respiratory Rate 20 2017-06-21 BMI 57.47 kg/m2 2017-06-21 MEDICATIONS Medication Instructions Dosage Frequency Start Date End Date Duration Status Percocet 10-325 MG Orally 4 times a day 1 tablet as needed 6h 12 May, 2017 28 days Active Losartan Potassium 100 MG Orally Once a day 1 tablet 24h Active Abilify 30 MG Orally Once a day 1 tablet 24h Active Symbicort 80-4.5 MCG/ACT Inhalation Twice a day 2 puffs 12h 30 Active Trintellix 20 mg Orally Once a day 1 tablet 24h Active Allopurinol 300 MG Orally Once a day 1 tablet 24h Mar, 90 days Active Victoza 18 MG/3ML INJECT 1.8MG SUBCUTANEOUSLY ONCE DAILY 30 Active Voltaren 1 % Transdermal every 4-6 hours as needed 4grams to knee and hip Mar, Active Fluticasone Propionate 50 MCG/ACT Nasally Once a day 1 spray in each nostril 24h 30 days Active Nexium 40 MG Orally Once a day 1 capsule 24h 90 Active Lantus 100 UNIT/ML Subcutaneous 2 times a day inject 100 units 12h Active Naproxen 500 MG Orally 2 times a day 1 tablet as needed 12h Active Metoprolol Succinate ER 50 mg Orally twice a day 1 tablet 12h 90 Active Zofran 4 MG Orally 3 times a day prn nausea and vomiting 1 tablet 5 Active Aspirin 81 mg 1 tablet by Oral route 1 time per day Apr, Active Incruse Ellipta 62.5 MCG/INH Inhalation Once a day 1 puff 24h 30 Active NovoLog Flexpen 100 UNIT/ML INJECT 30 UNITS SUBCUTANEOUSLY WITH BREAKFAST, 30 UNITS WITH LUNCH AND 40 UNITS WITH EVENING MEAL 30 Active Ambien 10 mg Orally Once a day 1 tablet at bedtime 24h Nov, Active Potassium Chloride Kathi ER 20 MEQ Orally Once a day 2 tablets 24h Active Clopidogrel Bisulfate 75 MG Orally Once a day 1 tablet 24h Active Vitamin D3 1,000 unit 2 capsule by Oral route 1 time per day Apr, Active Ventolin HFA 108 (90 Base) MCG/ACT Inhalation every 4 hrs 2 puffs as needed 4h Dec, 30 days Active Furosemide 40 mg Orally twice a day 1 tablet 12h Mar, 05 days Active Atorvastatin Calcium 20 MG Orally Once a day 1 tablet at bedtime 24h Active Gabapentin 300 MG Orally 3 times a day 2 capsules 8h Mar, Active Valium 5 MG Orally three times a day 1 tablet as needed 8h Oct, Active Imbruvica 140 MG Orally Once a day 3 capsules in the evening 24h Oct, Active Clonidine HCl 0.1 MG Orally 2 times a day 1 tablet 12h 30 Active Zetia 10 MG Orally Once a day 1 tablet 24h Active Flomax 0.4 mg Orally Once a day 1 capsule 30 minutes after the same meal each day 24h 24 Aug, 2015 90 Active RESULTS No Results PROCEDURES Procedure Date Ordered Result Body Site [facility] VISIT ESTABLISHED PATIENT Jun 21, 2017 INSTRUCTIONS MEDICATIONS ADMINISTERED No Known [...] 2009 Surgical History colonoscopy 2009 ([facility]), 2013 ([facility]) Surgical History heart cath: CAD [...] to urinate 09/16/15 Hospitalization History [facility] early Hospitalization History hyperkalemia 10/2017 Hospitalization History fluid in lung
--- OUTSIDE RECORDS SUMMARY | 2018-08-08 15:29 | XMS REPORT | Continuity of Care Document ---
Author Author [facility] Address Unknown Phone Unavailable Allergies Active Description Code Type Severity Reaction Onset Reported/Identified Relationship to Patient Clinical Status Yes NKANo Known Allergies NKA Miscellaneous Allergy Unknown N/A 11/01/2017 Medications There is no data. Problems Date Dx Coded Attending Type Code Diagnosis Diagnosed By 08/24/1435 GABBIE MORALES MD, Ot D72.820 LYMPHOCYTOSIS (SYMPTOMATIC) 08/24/1435 GABBIE MORALES MD, Ot E11.9 TYPE 2 DIABETES MELLITUS WITHOUT COMPLIC 08/24/1435 GABBIE MORALES MD, Ot E66.01 MORBID (SEVERE) OBESITY DUE TO EXCESS CA 08/24/1435 GABBIE MORALES MD, Ot E78.5 HYPERLIPIDEMIA, UNSPECIFIED 08/24/1435 GABBIE MORALES MD, Ot E87.6 HYPOKALEMIA 08/24/1435 GABBIE MORALES MD, Ot G47.30 SLEEP APNEA, UNSPECIFIED 08/24/1435 GABBIE MORALES MD, Ot I10 ESSENTIAL (PRIMARY) HYPERTENSION 08/24/1435 GABBIE MORALES MD, Ot I25.10 ATHSCL HEART DISEASE OF [place] CORONARY 08/24/1435 GABBIE MORALES MD, Ot J44.9 CHRONIC OBSTRUCTIVE PULMONARY DISEASE, U 08/24/1435 GABBIE MORALES MD, Ot Z68.43 BODY MASS INDEX (BMI) 50-59.9 , ADULT 08/24/1435 GABBIE MORALES MD, Ot Z79.899 OTHER JAIL (CURRENT) DRUG THERAPY 08/24/1435 GABBIE MORALES MD, Ot Z95.5 PRESENCE OF CORONARY ANGIOPLASTY IMPLANT 08/24/1602 LYUDMILA PALENCIA MD, Ot 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 LYMPHOCYTIC LEUK OF B-CELL TYPE 08/24/1602 LYUDMILA PALENCIA MD, Ot E11.9 TYPE 2 DIABETES MELLITUS WITHOUT COMPLIC 08/24/1602 LYUDMILA PALENCIA MD, Ot E66.01 MORBID (SEVERE) OBESITY DUE TO EXCESS CA 08/24/1602 XUN MD, ROBLEDO-ALEKS Ot E78.5 HYPERLIPIDEMIA, UNSPECIFIED 08/24/1602 LYUDMILA PALENCIA MD Ot E87.6 HYPOKALEMIA 08/24/1602 LYUDMILA PALENCIA MD, Ot G47.30 SLEEP APNEA, UNSPECIFIED 08/24/1602 LYUDMILA PALENCIA MD, Ot I10 ESSENTIAL (PRIMARY) HYPERTENSION 08/24/1602 LYUDMILA PALENCIA MD Ot I25.10 ATHSCL HEART DISEASE OF [place] CORONARY 08/24/1602 LYUDMILA PALENCIA MD, Ot J44.9 CHRONIC OBSTRUCTIVE PULMONARY DISEASE, U 08/24/1602 LYUDMILA PALENCIA MD, Ot Z68.43 BODY MASS INDEX (BMI) 50-59.9 , ADULT 08/24/1602 LYUDMILA PALENCIA MD, Ot Z79.899 OTHER JAIL (CURRENT) DRUG THERAPY 08/24/1602 LYUDMILA PALENCIA MD, Ot Z95.5 PRESENCE OF CORONARY ANGIOPLASTY IMPLANT 04/07/2008 ROSELINE LUIS PHD 296.80 BIPOLAR DISORDER NOS 04/07/2008 ROSELINE LUIS PHD 296.80 BIPOLAR DISORDER NOS 04/07/2008 296.80 BIPOLAR DISORDER NOS 04/07/2008 NOEMI WASHBURN APRN 296.80 BIPOLAR DISORDER NOS 04/07/2008 NOEMI WASHBURN APRN S 296.80 BIPOLAR DISORDER NOS 04/07/2008 TREVOR SCHULZ DO 296.80 BIPOLAR DISORDER NOS 04/07/2008 296.80 BIPOLAR DISORDER NOS 04/07/2008 NOEMI WASHBURN APRN S 296.80 BIPOLAR DISORDER NOS 04/07/2008 NOEMI WASHBURN APRN S 296.80 BIPOLAR DISORDER NOS 04/07/2008 ROSELINE LUIS PHD 296.80 BIPOLAR DISORDER NOS 04/07/2008 296.80 BIPOLAR DISORDER NOS 04/07/2008 296.80 BIPOLAR DISORDER NOS 04/07/2008 296.80 BIPOLAR DISORDER NOS 04/07/2008 TREVOR SCHULZ DO 296.80 BIPOLAR DISORDER NOS 04/07/2008 ROSELINE LUIS PHD 296.80 BIPOLAR DISORDER NOS 04/07/2008 TREVOR SCHULZ DO 296.80 BIPOLAR DISORDER NOS 04/07/2008 GABBIE MAYORGA APRN 296.80 BIPOLAR DISORDER NOS 04/07/2008 YONATHAN RIOS MD 296.80 BIPOLAR DISORDER NOS 04/07/2008 YONATHAN RIOS MD 296.80 BIPOLAR DISORDER NOS 04/07/2008 ROSELINE LUIS PHD 296.80 BIPOLAR DISORDER NOS 04/07/2008 ROSELINE LUIS PHD 296.80 BIPOLAR DISORDER NOS 04/07/2008 JOSE WASHBURN APRNA S 296.80 BIPOLAR DISORDER NOS 04/07/2008 TOBY JANE, ROSELINE Thakur 296.80 BIPOLAR DISORDER NOS 04/07/2008 YONATHAN RIOS MD 296.80 BIPOLAR DISORDER NOS 04/07/2008 NOEMI WASHBURN APRN S 296.80 BIPOLAR DISORDER NOS 04/07/2008 JOSE WASHBURN APRNA S 296.80 BIPOLAR DISORDER NOS 04/07/2008 GABBIE MAYORGA APRN 296.80 BIPOLAR DISORDER NOS 04/07/2008 ROSELINE LUIS PHD 296.80 BIPOLAR DISORDER NOS 04/07/2008 ROSELINE LUIS PHD 296.80 BIPOLAR DISORDER NOS 04/07/2008 YONATHAN RIOS MD 296.80 BIPOLAR DISORDER NOS 04/07/2008 ROSELINE LUIS PHD 296.80 BIPOLAR DISORDER NOS 04/07/2008 GABBIE MAYORGA APRN 296.80 BIPOLAR DISORDER NOS 04/07/2008 TREVOR SCHULZ DO K 296.80 BIPOLAR DISORDER NOS 04/07/2008 NOEMI WASHBURN APRN S 296.80 BIPOLAR DISORDER NOS 04/07/2008 ROSELINE LUIS PHD 296.80 BIPOLAR DISORDER NOS 04/07/2008 ROSELIEN LUIS PHD 296.80 BIPOLAR DISORDER NOS 04/07/2008 GABBIE MAYORGA APRN 296.80 BIPOLAR DISORDER NOS 04/07/2008 ROSELINE LUIS PHD 296.80 BIPOLAR DISORDER NOS 04/07/2008 YONATHAN RIOS MD 296.80 BIPOLAR DISORDER NOS 04/07/2008 LESLY WEAVER APRN R 296.80 BIPOLAR DISORDER NOS 04/07/2008 ROSELINE LUIS PHD 296.80 BIPOLAR DISORDER NOS 04/07/2008 ARIANE RODRIGUEZ APRN 296.80 BIPOLAR DISORDER NOS 04/07/2008 ROSELINE LUIS PHD 296.80 BIPOLAR DISORDER NOS 04/07/2008 SP CARR APRN 296.80 BIPOLAR DISORDER NOS 04/07/2008 TREVOR SCHULZ DO K 296.80 BIPOLAR DISORDER NOS 04/07/2008 ROSELINE LUIS PHD 296.80 BIPOLAR DISORDER NOS 04/07/2008 BLANCA ROBINS, YONATHAN 296.80 BIPOLAR DISORDER NOS 04/07/2008 ROSELINE LUIS PHD 296.80 BIPOLAR DISORDER NOS 04/07/2008 NADINE HARP MD 296.80 BIPOLAR DISORDER NOS 04/07/2008 WU LOZADA, NOEMI S 296.80 BIPOLAR DISORDER NOS 04/07/2008 ROSELINE LUIS PHD 296.80 BIPOLAR DISORDER NOS 04/07/2008 WU LOZADA, NOEMI S 296.80 BIPOLAR DISORDER NOS 04/07/2008 YONATHAN RIOS MD 296.80 BIPOLAR DISORDER NOS 04/07/2008 WU LOZADA, NOEMI S 296.80 BIPOLAR DISORDER NOS 04/07/2008 WU LOZADA, NOEMI S 296.80 BIPOLAR DISORDER NOS 04/07/2008 ROSELINE LUIS PHD 296.80 BIPOLAR DISORDER NOS 04/07/2008 LEXI FRENCH TEACHER, ALYSE M 296.80 BIPOLAR DISORDER NOS 04/07/2008 LEXI FRENCH TEACHER, ALYSE M 296.80 BIPOLAR DISORDER NOS 04/07/2008 WU LOZADA, NOEMI S 296.80 BIPOLAR DISORDER NOS 04/07/2008 WU LOZADA, NOEMI S 296.80 BIPOLAR DISORDER NOS 04/07/2008 ROSELINE LUIS PHD 296.80 BIPOLAR DISORDER NOS 04/07/2008 WU LOZADA, NOEMI S 296.80 BIPOLAR DISORDER NOS 04/21/2008 ROSELINE LUIS PHD 293.83 OR ORG ANX SYN 04/21/2008 ROSELINE LUIS PHD 293.84 ANXIETY DISORDER OF UNKNOWN (AXIS III) ETIOLOGY 04/21/2008 ROSELINE LUIS PHD 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 04/21/2008 ROSELINE LUIS PHD 599.7 HEMATURIA 04/21/2008 ROSELINE LUIS PHD 729.5 OVERUSE SYNDROME 04/21/2008 ROSELINE LUIS PHD 293.83 OR ORG ANX SYN 04/21/2008 ROSELINE LUIS PHD 293.84 ANXIETY DISORDER OF UNKNOWN (AXIS III) ETIOLOGY 04/21/2008 ROSELINE LUIS PHD 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 04/21/2008 ROSELINE LUIS PHD 599.7 HEMATURIA 04/21/2008 ROSELINE LUIS PHD 729.5 OVERUSE SYNDROME 04/21/2008 293.83 OR ORG ANX SYN 04/21/2008 293.84 ANXIETY DISORDER OF UNKNOWN (AXIS III) ETIOLOGY 04/21/2008 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 04/21/2008 599.7 HEMATURIA 04/21/2008 729.5 OVERUSE SYNDROME 04/21/2008 WU CHAIR, NOEMI S 293.83 OR ORG ANX SYN 04/21/2008 WU CHAIR, NOEMI S 293.84 ANXIETY DISORDER OF UNKNOWN (AXIS III) ETIOLOGY 04/21/2008 WU CHAIR, NOEMI S 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 04/21/2008 WU CHAIR, NOEMI S 599.7 HEMATURIA 04/21/2008 WU CHAIR NOEMI S 729.5 OVERUSE SYNDROME 04/21/2008 WU CHAIR, NOEMI S 293.83 OR ORG ANX SYN 04/21/2008 WU CHAIR, NOEMI S 293.84 ANXIETY DISORDER OF UNKNOWN (AXIS III) ETIOLOGY 04/21/2008 WU LOZADA, NOEMI S 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 04/21/2008 WU CHAIR, NOEMI S 599.7 HEMATURIA 04/21/2008 WU LOZADA, NOEMI S 729.5 OVERUSE SYNDROME 04/21/2008 SCHULZ DO, TREVOR K 293.83 OR ORG ANX SYN 04/21/2008 SCHULZ DO, TREVOR K 293.84 ANXIETY DISORDER OF UNKNOWN (AXIS III) ETIOLOGY 04/21/2008 SCHULZ DO, TREVOR K 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 04/21/2008 SCHULZ DO, TREVOR K 599.7 HEMATURIA 04/21/2008 SCHULZ DO, TREVOR K 729.5 OVERUSE SYNDROME 04/21/2008 293.83 OR ORG ANX SYN 04/21/2008 293.84 ANXIETY DISORDER OF UNKNOWN (AXIS III) ETIOLOGY 04/21/2008 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 04/21/2008 599.7 HEMATURIA 04/21/2008 729.5 OVERUSE SYNDROME 04/21/2008 WU CHAIR, NOEMI S 293.83 OR ORG ANX SYN 04/21/2008 WU CHAIR, NOEMI S 293.84 ANXIETY DISORDER OF UNKNOWN (AXIS III) ETIOLOGY 04/21/2008 WU ARROYON, NOEMI S 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 04/21/2008 WU CHAIR, NOEMI S 599.7 HEMATURIA 04/21/2008 WU CHAIR, NOEMI S 729.5 OVERUSE SYNDROME 04/21/2008 WU CHAIR, NOEMI S 293.83 OR ORG ANX SYN 04/21/2008 WU CHAIR, NOEMI S 293.84 ANXIETY DISORDER OF UNKNOWN (AXIS III) ETIOLOGY 04/21/2008 WU CHAIR, NOEMI S 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 04/21/2008 WU ARROYON, NOEMI S 599.7 HEMATURIA 04/21/2008 DIPTI WASHBURN APRNNDA S 729.5 OVERUSE SYNDROME 04/21/2008 ROSELINE LUIS PHD 293.83 OR ORG ANX SYN 04/21/2008 ROSELINE LUIS PHD 293.84 ANXIETY DISORDER OF UNKNOWN (AXIS III) ETIOLOGY 04/21/2008 ROSELINE LUIS PHD 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 04/21/2008 ROSELINE LUIS PHD 599.7 HEMATURIA 04/21/2008 ROSELINE LUIS PHD 729.5 OVERUSE SYNDROME 04/21/2008 293.83 OR ORG ANX SYN 04/21/2008 293.84 ANXIETY DISORDER OF UNKNOWN (AXIS III) ETIOLOGY 04/21/2008 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 04/21/2008 599.7 HEMATURIA 04/21/2008 729.5 OVERUSE SYNDROME 04/21/2008 293.83 OR ORG ANX SYN 04/21/2008 293.84 ANXIETY DISORDER OF UNKNOWN (AXIS III) ETIOLOGY 04/21/2008 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 04/21/2008 599.7 HEMATURIA 04/21/2008 729.5 OVERUSE SYNDROME 04/21/2008 293.83 OR ORG ANX SYN 04/21/2008 293.84 ANXIETY DISORDER OF UNKNOWN (AXIS III) ETIOLOGY 04/21/2008 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 04/21/2008 599.7 HEMATURIA 04/21/2008 729.5 OVERUSE SYNDROME 04/21/2008 SCHULZ TREVOR STROUD 293.83 OR ORG ANX SYN 04/21/2008 SCHULZ DO, TREVOR K 293.84 ANXIETY DISORDER OF UNKNOWN (AXIS III) ETIOLOGY 04/21/2008 JAZZ DO TREVOR Geanro 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 04/21/2008 JAZZ DO TREVOR K 599.7 HEMATURIA 04/21/2008 JAZZ STROUD TREVOR K 729.5 OVERUSE SYNDROME 04/21/2008 ROSELINE LUIS PHD 293.83 OR ORG ANX SYN 04/21/2008 ROSELINE LUIS PHD 293.84 ANXIETY DISORDER OF UNKNOWN (AXIS III) ETIOLOGY 04/21/2008 ROSELINE LUIS PHD 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 04/21/2008 ROSELINE LUIS PHD 599.7 HEMATURIA 04/21/2008 ROSELINE LUIS PHD 729.5 OVERUSE SYNDROME 04/21/2008 SCHULZ LURDES STROUDA K 293.83 OR ORG ANX SYN 04/21/2008 SCHULZ DO TREVOR K 293.84 ANXIETY DISORDER OF UNKNOWN (AXIS III) ETIOLOGY 04/21/2008 TREVOR SCHULZ DO 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 04/21/2008 SCHULZ TREVOR STROUD K 599.7 HEMATURIA 04/21/2008 SCHULZ DO TREVOR K 729.5 OVERUSE SYNDROME 04/21/2008 MAYORGAHAYLEE LOZADA GABBIE GRAF 293.83 OR ORG ANX SYN 04/21/2008 TIERRA LOZADA GABBIE DE [place] 293.84 ANXIETY DISORDER OF UNKNOWN (AXIS III) ETIOLOGY 04/21/2008 TIERRA LOZADA GABBIE [place] 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 04/21/2008 TIERRA LOZADA GABBIE HOMAR 599.7 HEMATURIA 04/21/2008 TIERRA LOZADA GABBIE [place] 729.5 OVERUSE SYNDROME 04/21/2008 YONATHAN RIOS MD 293.83 OR ORG ANX SYN 04/21/2008 YONATHAN RIOS MD 293.84 ANXIETY DISORDER OF UNKNOWN (AXIS III) ETIOLOGY 04/21/2008 YONATHAN RIOS MD 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 04/21/2008 YONATHAN RIOS MD 599.7 HEMATURIA 04/21/2008 YONATHAN RIOS MD 729.5 OVERUSE SYNDROME 04/21/2008 YONATHAN RIOS MD 293.83 OR ORG ANX SYN 04/21/2008 YONATHAN RIOS MD 293.84 ANXIETY DISORDER OF UNKNOWN (AXIS III) ETIOLOGY 04/21/2008 YONATHAN RIOS MD 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 04/21/2008 YONATHAN RIOS MD 599.7 HEMATURIA 04/21/2008 YONATHAN RIOS MD 729.5 OVERUSE SYNDROME 04/21/2008 ROSELINE LUIS PHD 293.83 OR ORG ANX SYN 04/21/2008 ROSELINE LUIS PHD 293.84 ANXIETY DISORDER OF UNKNOWN (AXIS III) ETIOLOGY 04/21/2008 ROSELINE LUIS PHD 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 04/21/2008 ROSELINE LUIS PHD 599.7 HEMATURIA 04/21/2008 ROSELINE LUIS PHD 729.5 OVERUSE SYNDROME 04/21/2008 ROSELINE LUIS PHD 293.83 OR ORG ANX SYN 04/21/2008 ROSELINE LUIS PHD 293.84 ANXIETY DISORDER OF UNKNOWN (AXIS III) ETIOLOGY 04/21/2008 ROSELINE LUIS PHD 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 04/21/2008 ROSELINE LUIS PHD 599.7 HEMATURIA 04/21/2008 ROSELINE LUIS PHD 729.5 OVERUSE SYNDROME 04/21/2008 WUBREANNE LOZADA NOEMI S 293.83 OR ORG ANX SYN 04/21/2008 DIPTI WASHBURN APRNNDA S 293.84 ANXIETY DISORDER OF UNKNOWN (AXIS III) ETIOLOGY 04/21/2008 WU LOZADA, NOEMI S 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 04/21/2008 WU LOZADA NOEMI S 599.7 HEMATURIA 04/21/2008 WU LOZADA NOEMI S 729.5 OVERUSE SYNDROME 04/21/2008 ROSELINE LUIS PHD 293.83 OR ORG ANX SYN 04/21/2008 ROSELINE LUIS PHD 293.84 ANXIETY DISORDER OF UNKNOWN (AXIS III) ETIOLOGY 04/21/2008 ROSELINE LUIS PHD 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 04/21/2008 ROSELINE LUIS PHD 599.7 HEMATURIA 04/21/2008 ROSELINE LUIS PHD 729.5 OVERUSE SYNDROME 04/21/2008 YONATHAN RIOS MD 293.83 OR ORG ANX SYN 04/21/2008 YONATHAN RIOS MD 293.84 ANXIETY DISORDER OF UNKNOWN (AXIS III) ETIOLOGY 04/21/2008 YONATHAN RIOS MD 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 04/21/2008 YONATHAN RIOS MD 599.7 HEMATURIA 04/21/2008 YONATHAN RIOS MD 729.5 OVERUSE SYNDROME 04/21/2008 WU CHAIR, NOEMI S 293.83 OR ORG ANX SYN 04/21/2008 WU CHAIR, NOEMI S 293.84 ANXIETY DISORDER OF UNKNOWN (AXIS III) ETIOLOGY 04/21/2008 WU CHAIR, NOEMI S 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 04/21/2008 WU CHAIR, NOEMI S 599.7 HEMATURIA 04/21/2008 WU CHAIR, NOEMI S 729.5 OVERUSE SYNDROME 04/21/2008 WU CHAIR, NOEMI S 293.83 OR ORG ANX SYN 04/21/2008 WU CHAIR, NOEMI S 293.84 ANXIETY DISORDER OF UNKNOWN (AXIS III) ETIOLOGY 04/21/2008 WU CHAIR, NOEMI S 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 04/21/2008 WU CHAIR, NOEMI S 599.7 HEMATURIA 04/21/2008 WU CHAIR, NOEMI S 729.5 OVERUSE SYNDROME 04/21/2008 TIERRA LOZADA GABBIE GRAF 293.83 OR ORG ANX SYN 04/21/2008 MAYORGA NEVILLE GABBIE HOMAR 293.84 ANXIETY DISORDER OF UNKNOWN (AXIS III) ETIOLOGY 04/21/2008 TIERRA LOZADAGABBIE 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 04/21/2008 MAYORGA NEVILLE GABBIE GRAF 599.7 HEMATURIA 04/21/2008 MAYORGA CHAIR, GABBIE GRAF 729.5 OVERUSE SYNDROME 04/21/2008 ROSELINE LUIS PHD 293.83 OR ORG ANX SYN 04/21/2008 ROSELINE LUIS PHD 293.84 ANXIETY DISORDER OF UNKNOWN (AXIS III) ETIOLOGY 04/21/2008 ROSELINE LUIS PHD 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 04/21/2008 ROSELINE LUIS PHD 599.7 HEMATURIA 04/21/2008 ROSELINE LUIS PHD 729.5 OVERUSE SYNDROME 04/21/2008 ROSELINE LUIS PHD 293.83 OR ORG ANX SYN 04/21/2008 ROSELINE LUIS PHD 293.84 ANXIETY DISORDER OF UNKNOWN (AXIS III) ETIOLOGY 04/21/2008 ROSELINE LUIS PHD 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 04/21/2008 ROSELINE LUIS PHD 599.7 HEMATURIA 04/21/2008 ROSELINE LUIS PHD 729.5 OVERUSE SYNDROME 04/21/2008 YONATHAN RIOS MD 293.83 OR ORG ANX SYN 04/21/2008 YONATHAN RIOS MD 293.84 ANXIETY DISORDER OF UNKNOWN (AXIS III) ETIOLOGY 04/21/2008 YONATHAN RIOS MD 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 04/21/2008 YONATHAN RIOS MD 599.7 HEMATURIA 04/21/2008 YONATHAN RIOS MD 729.5 OVERUSE SYNDROME 04/21/2008 ROSELINE LUIS PHD 293.83 OR ORG ANX SYN 04/21/2008 ROSELINE LUIS PHD 293.84 ANXIETY DISORDER OF UNKNOWN (AXIS III) ETIOLOGY 04/21/2008 ROSELINE LUIS PHD 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 04/21/2008 ROSELINE LUIS PHD 599.7 HEMATURIA 04/21/2008 ROSELINE LUIS PHD 729.5 OVERUSE SYNDROME 04/21/2008 GABBIE MAYORGA APRN 293.83 OR ORG ANX SYN 04/21/2008 GABBIE MAYORGA APRN 293.84 ANXIETY DISORDER OF UNKNOWN (AXIS III) ETIOLOGY 04/21/2008 TIERRA LOZADA GABBIE HOMAR 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 04/21/2008 MAYORGA GABBIE LOAZDA 599.7 HEMATURIA 04/21/2008 GABBIE MAYORGA APRN 729.5 OVERUSE SYNDROME 04/21/2008 SCHULZ DO TREVOR K 293.83 OR ORG ANX SYN 04/21/2008 SCHULZ DO TREVOR K 293.84 ANXIETY DISORDER OF UNKNOWN (AXIS III) ETIOLOGY 04/21/2008 SCHULZ DO, TREVOR K 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 04/21/2008 SCHULZ DO, TREVOR K 599.7 HEMATURIA 04/21/2008 SCHULZ DO, TREVOR K 729.5 OVERUSE SYNDROME 04/21/2008 NOEMI WASHBURN APRN 293.83 OR ORG ANX SYN 04/21/2008 WU CHAIR, NOEMI S 293.84 ANXIETY DISORDER OF UNKNOWN (AXIS III) ETIOLOGY 04/21/2008 WU ARROYONJOSEA S 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 04/21/2008 JOSE WASHBURN APRNA S 599.7 HEMATURIA 04/21/2008 WU ARROYONDIPTINOEMI S 729.5 OVERUSE SYNDROME 04/21/2008 ROSELINE LUIS PHD 293.83 OR ORG ANX SYN 04/21/2008 ROSELINE LUIS PHD 293.84 ANXIETY DISORDER OF UNKNOWN (AXIS III) ETIOLOGY 04/21/2008 ROSELINE LUIS PHD 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 04/21/2008 ROSELINE LUIS PHD 599.7 HEMATURIA 04/21/2008 ROSELINE LUIS PHD 729.5 OVERUSE SYNDROME 04/21/2008 ROSELINE LUIS PHD 293.83 OR ORG ANX SYN 04/21/2008 ROSELINE LUIS PHD 293.84 ANXIETY DISORDER OF UNKNOWN (AXIS III) ETIOLOGY 04/21/2008 ROSELINE LUIS PHD 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 04/21/2008 ROSELINE LUIS PHD 599.7 HEMATURIA 04/21/2008 ROSELINE LUIS PHD 729.5 OVERUSE SYNDROME 04/21/2008 TIERRA LOZADA GABBIE GRAF 293.83 OR ORG ANX SYN 04/21/2008 MAYORGA NEVILLE GABBIE GRAF 293.84 ANXIETY DISORDER OF UNKNOWN (AXIS III) ETIOLOGY 04/21/2008 MAYORGA CHAIRGABBIE 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 04/21/2008 MAYORGA CHAIR, GABBIE GRAF 599.7 HEMATURIA 04/21/2008 MAYORGA CHAIRGABBIE 729.5 OVERUSE SYNDROME 04/21/2008 ROSELINE LUIS PHD 293.83 OR ORG ANX SYN 04/21/2008 ROSELINE LUIS PHD 293.84 ANXIETY DISORDER OF UNKNOWN (AXIS III) ETIOLOGY 04/21/2008 ROSELINE LUIS PHD 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 04/21/2008 ROSELINE LUIS PHD 599.7 HEMATURIA 04/21/2008 ROSELINE LUIS PHD 729.5 OVERUSE SYNDROME 04/21/2008 YONATHAN RIOS MD 293.83 OR ORG ANX SYN 04/21/2008 YONATHAN RIOS MD 293.84 ANXIETY DISORDER OF UNKNOWN (AXIS III) ETIOLOGY 04/21/2008 YONATHAN RIOS MD 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 04/21/2008 YONATHAN RIOS MD 599.7 HEMATURIA 04/21/2008 YONATHAN RIOS MD 729.5 OVERUSE SYNDROME 04/21/2008 GREGORIO WEAVER APRNRICIA R 293.83 OR ORG ANX SYN 04/21/2008 GREGORIO WEAVER APRNRICIA R 293.84 ANXIETY DISORDER OF UNKNOWN (AXIS III) ETIOLOGY 04/21/2008 LESLY WEAVER APRN R 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 04/21/2008 LESLY WEAVER APRN R 599.7 HEMATURIA 04/21/2008 LESLY WEAVER APRN R 729.5 OVERUSE SYNDROME 04/21/2008 ROSELIEN LUIS PHD 293.83 OR ORG ANX SYN 04/21/2008 ROSELINE LUIS PHD 293.84 ANXIETY DISORDER OF UNKNOWN (AXIS III) ETIOLOGY 04/21/2008 ROSELINE LUIS PHD 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 04/21/2008 ROSELINE LUIS PHD 599.7 HEMATURIA 04/21/2008 ROSELINE LUIS PHD 729.5 OVERUSE SYNDROME 04/21/2008 JENNIFER LOZADA ARIANE R 293.83 OR ORG ANX SYN 04/21/2008 JENNIFER LOZADA ARIANE R 293.84 ANXIETY DISORDER OF UNKNOWN (AXIS III) ETIOLOGY 04/21/2008 JENNIFER LOZADA ARIANE R 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 04/21/2008 ISMAEL RODRIGUEZ APRNINA R 599.7 HEMATURIA 04/21/2008 JENNIFER LOZADA ARIANE R 729.5 OVERUSE SYNDROME 04/21/2008 ROSELINE LUIS PHD 293.83 OR ORG ANX SYN 04/21/2008 ROSELINE LUIS PHD 293.84 ANXIETY DISORDER OF UNKNOWN (AXIS III) ETIOLOGY 04/21/2008 ROSELINE LUIS PHD 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 04/21/2008 ROSELINE LUIS PHD 599.7 HEMATURIA 04/21/2008 ROSELINE LUIS PHD 729.5 OVERUSE SYNDROME 04/21/2008 SP CARR APRN 293.83 OR ORG ANX SYN 04/21/2008 SP CARR APRN 293.84 ANXIETY DISORDER OF UNKNOWN (AXIS III) ETIOLOGY 04/21/2008 SP CARR APRN T 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 04/21/2008 SP CARR APRN T 599.7 HEMATURIA 04/21/2008 LILLY SP LOZADA T 729.5 OVERUSE SYNDROME 04/21/2008 SCHULZ DO, TREVOR K 293.83 OR ORG ANX SYN 04/21/2008 SCHULZ DO, TREVOR K 293.84 ANXIETY DISORDER OF UNKNOWN (AXIS III) ETIOLOGY 04/21/2008 SCHULZ DO, TREVOR K 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 04/21/2008 SCHULZ DO, TREVOR K 599.7 HEMATURIA 04/21/2008 SCHULZ DO, TREVOR K 729.5 OVERUSE SYNDROME 04/21/2008 ROSELINE LUIS PHD 293.83 OR ORG ANX SYN 04/21/2008 ROSELINE LUIS PHD 293.84 ANXIETY DISORDER OF UNKNOWN (AXIS III) ETIOLOGY 04/21/2008 ROSELINE LUIS PHD 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 04/21/2008 ROSELINE LUIS PHD.7 HEMATURIA 04/21/2008 ROSELINE LUIS PHD 729.5 OVERUSE SYNDROME 04/21/2008 YONATHAN RIOS MD 293.83 OR ORG ANX SYN 04/21/2008 YONATHAN RIOS MD 293.84 ANXIETY DISORDER OF UNKNOWN (AXIS III) ETIOLOGY 04/21/2008 YONATHAN RIOS MD 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 04/21/2008 YONATHAN RIOS MD.7 HEMATURIA 04/21/2008 YONATHAN RIOS MD.5 OVERUSE SYNDROME 04/21/2008 ROSELINE LUIS PHD 293.83 OR ORG ANX SYN 04/21/2008 ROSELINE LUIS PHD 293.84 ANXIETY DISORDER OF UNKNOWN (AXIS III) ETIOLOGY 04/21/2008 ROSELINE LUIS PHD 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 04/21/2008 ROSELINE LUIS PHD.7 HEMATURIA 04/21/2008 ROSELINE LUIS PHD 72Haroon.5 OVERUSE SYNDROME 04/21/2008 NADINE HARP MD 293.83 OR ORG ANX SYN 04/21/2008 NADINE HARP MD 293.84 ANXIETY DISORDER OF UNKNOWN (AXIS III) ETIOLOGY 04/21/2008 NADINE HARP MD 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 04/21/2008 NADINE HARP MD N 599.7 HEMATURIA 04/21/2008 NADINE HARP MD 729.5 OVERUSE SYNDROME 04/21/2008 WU LOZADA, NOEMI S 293.83 OR ORG ANX SYN 04/21/2008 WU LOZADA, NOEMI S 293.84 ANXIETY DISORDER OF UNKNOWN (AXIS III) ETIOLOGY 04/21/2008 WU LOZADA, NOEMI S 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 04/21/2008 WU LOZADA, NOEMI S 599.7 HEMATURIA 04/21/2008 WU LOZADA NOEMI S 729.5 OVERUSE SYNDROME 04/21/2008 ROSELINE LUIS PHD 293.83 OR ORG ANX SYN 04/21/2008 ROSELINE LUIS PHD 293.84 ANXIETY DISORDER OF UNKNOWN (AXIS III) ETIOLOGY 04/21/2008 TOBY JANE, ROSELINE Thakur 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 04/21/2008 TOBY JANE, ROSELINE Thakur 599.7 HEMATURIA 04/21/2008 ROSELINE LUIS PHD 729.5 OVERUSE SYNDROME 04/21/2008 WU LOZADA, NOEMI S 293.83 OR ORG ANX SYN 04/21/2008 WU LOZADA NOEMI S 293.84 ANXIETY DISORDER OF UNKNOWN (AXIS III) ETIOLOGY 04/21/2008 WU LOZADA, NOEMI S 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 04/21/2008 WU LOZADA, NOEMI S 599.7 HEMATURIA 04/21/2008 WU LOZADA, NOEMI S 729.5 OVERUSE SYNDROME 04/21/2008 YONATHAN RIOS MD 293.83 OR ORG ANX SYN 04/21/2008 YONATHAN RIOS MD 293.84 ANXIETY DISORDER OF UNKNOWN (AXIS III) ETIOLOGY 04/21/2008 YONATHAN RIOS MD 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 04/21/2008 YONATHAN RIOS MD 599.7 HEMATURIA 04/21/2008 YONATHAN RIOS MD 729.5 OVERUSE SYNDROME 04/21/2008 WU LOZADA, NOEMI S 293.83 OR ORG ANX SYN 04/21/2008 WU ARROYON NOEMI S 293.84 ANXIETY DISORDER OF UNKNOWN (AXIS III) ETIOLOGY 04/21/2008 WU CHAIR, NOEMI S 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 04/21/2008 WU CHAIR, NOEMI S 599.7 HEMATURIA 04/21/2008 WU CHAIR, NOEMI S 729.5 OVERUSE SYNDROME 04/21/2008 WU CHAIR, NOEMI S 293.83 OR ORG ANX SYN 04/21/2008 WU CHAIR, NOEMI S 293.84 ANXIETY DISORDER OF UNKNOWN (AXIS III) ETIOLOGY 04/21/2008 WU ARROYON, NOEMI S 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 04/21/2008 DIPTI WASHBURN APRNNDA S 599.7 HEMATURIA 04/21/2008 DIPTI WASHBURN APRNNDA S 729.5 OVERUSE SYNDROME 04/21/2008 ROSELINE LUIS PHD 293.83 OR ORG ANX SYN 04/21/2008 ROSELINE LUIS PHD 293.84 ANXIETY DISORDER OF UNKNOWN (AXIS III) ETIOLOGY 04/21/2008 ROSELINE LUIS PHD 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 04/21/2008 ROSELINE LUIS PHD 599.7 HEMATURIA 04/21/2008 ROSELINE LUIS PHD 729.5 OVERUSE SYNDROME 04/21/2008 ALYSE ILMA M 293.83 OR ORG ANX SYN 04/21/2008 ALYSE LIMA 293.84 ANXIETY DISORDER OF UNKNOWN (AXIS III) ETIOLOGY 04/21/2008 LEXI FRENCH TEACHERALYSE M 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 04/21/2008 LEXI FRENCH TEACHER, ALYSE M 599.7 HEMATURIA 04/21/2008 LEXI FRENCH TEACHER, ALYSE M 729.5 OVERUSE SYNDROME 04/21/2008 LEXI FRENCH TEACHERALYSE M 293.83 OR ORG ANX SYN 04/21/2008 LEXI FRENCH TEACHERALYSE M 293.84 ANXIETY DISORDER OF UNKNOWN (AXIS III) ETIOLOGY 04/21/2008 LEXI FRENCH TEACHERALYSE M 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 04/21/2008 LEXI FRENCH TEACHERALYSE M 599.7 HEMATURIA 04/21/2008 ALYSE LIMA M 729.5 OVERUSE SYNDROME 04/21/2008 WU CHAIR, NOEMI S 293.83 OR ORG ANX SYN 04/21/2008 WU CHAIR, NOEMI S 293.84 ANXIETY DISORDER OF UNKNOWN (AXIS III) ETIOLOGY 04/21/2008 WU CHAIR, NOEMI S 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 04/21/2008 WU ARROYON, NOEMI S 599.7 HEMATURIA 04/21/2008 WU ARROYON, NOEMI S 729.5 OVERUSE SYNDROME 04/21/2008 WU CHAIR, NOEMI S 293.83 OR ORG ANX SYN 04/21/2008 WU CHAIR, NOEMI S 293.84 ANXIETY DISORDER OF UNKNOWN (AXIS III) ETIOLOGY 04/21/2008 WU LOZADA, NOEMI S 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 04/21/2008 WU LOZADA, NOEMI S 599.7 HEMATURIA 04/21/2008 DIPTI WASHBURN APRNNDA S 729.5 OVERUSE SYNDROME 04/21/2008 ROSELINE LUIS PHD 293.83 OR ORG ANX SYN 04/21/2008 ROSELINE LUIS PHD 293.84 ANXIETY DISORDER OF UNKNOWN (AXIS III) ETIOLOGY 04/21/2008 ROSELINE LUIS PHD 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 04/21/2008 ROSELINE LUIS PHD 599.7 HEMATURIA 04/21/2008 ROSELINE LUIS PHD 729.5 OVERUSE SYNDROME 04/21/2008 DIPTI WASHBURN APRNNDA S 293.83 OR ORG ANX SYN 04/21/2008 DIPTI WASHBURN APRNNDA S 293.84 ANXIETY DISORDER OF UNKNOWN (AXIS III) ETIOLOGY 04/21/2008 WU LOZADA, NOEMI S 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 04/21/2008 WU LOZADA, NOEMI S 599.7 HEMATURIA 04/21/2008 WU LOZADA, NEOMI S 729.5 OVERUSE SYNDROME 04/22/2008 ROSELINE LUIS PHD 703.0 NAIL INGROWN 04/22/2008 ROSELINE LUIS PHD 703.0 NAIL INGROWN 04/22/2008 703.0 NAIL INGROWN 04/22/2008 WU CHAIR, NOEMI S 703.0 NAIL INGROWN 04/22/2008 WU CHAIR, NOEMI S 703.0 NAIL INGROWN 04/22/2008 SCHULZ DO TREVOR K 703.0 NAIL INGROWN 04/22/2008 703.0 NAIL INGROWN 04/22/2008 WU CHAIR, NOEMI S 703.0 NAIL INGROWN 04/22/2008 WU CHAIR, NOEMI S 703.0 NAIL INGROWN 04/22/2008 TOBY PHD, ROSELINE Thakur 703.0 NAIL INGROWN 04/22/2008 703.0 NAIL INGROWN 04/22/2008 703.0 NAIL INGROWN 04/22/2008 703.0 NAIL INGROWN 04/22/2008 SCHULZ DO, TREVOR K 703.0 NAIL INGROWN 04/22/2008 TOBY PHD, ROSELINE Thakur 703.0 NAIL INGROWN 04/22/2008 SCHULZ DO, TREVOR K 703.0 NAIL INGROWN 04/22/2008 MAYORGA CHAIR, GABBIE GRAF 703.0 NAIL INGROWN 04/22/2008 YONATHAN RIOS MD 703.0 NAIL INGROWN 04/22/2008 YONATHAN IROS MD 703.0 NAIL INGROWN 04/22/2008 TOBY PHD, ROSELINE Thakur 703.0 NAIL INGROWN 04/22/2008 TOBY JANE, ROSELINE Thakur 703.0 NAIL INGROWN 04/22/2008 WU CHAIR, NOEMI S 703.0 NAIL INGROWN 04/22/2008 TOBY PHD, ROSELINE Thakur 703.0 NAIL INGROWN 04/22/2008 YONATHAN RIOS MD 703.0 NAIL INGROWN 04/22/2008 WU CHAIR, NOEMI S 703.0 NAIL INGROWN 04/22/2008 WU CHAIR, NOEMI S 703.0 NAIL INGROWN 04/22/2008 TIERRA LOZADA, GABBIE GRAF 703.0 NAIL INGROWN 04/22/2008 TOBY JANE, ROSELINE Thakur 703.0 NAIL INGROWN 04/22/2008 TOBY PHD, ROSELINE Thakur 703.0 NAIL INGROWN 04/22/2008 BLANCA ROBINS, YONATHAN 703.0 NAIL INGROWN 04/22/2008 TOBY JANE, ROSELINE D 703.0 NAIL INGROWN 04/22/2008 TIERRA CHAIR, GABBIE DE [place] OH 703.0 NAIL INGROWN 04/22/2008 SCHULZ DO, TREVOR K 703.0 NAIL INGROWN 04/22/2008 WU CHAIR, NOEMI S 703.0 NAIL INGROWN 04/22/2008 TOBY PHD, ROSELINE Thakur 703.0 NAIL INGROWN 04/22/2008 TOBY PHD, ROSELINE Thakur 703.0 NAIL INGROWN 04/22/2008 TIERRA CHAIR, GABBIE DE [place] OH 703.0 NAIL INGROWN 04/22/2008 TOBY PHD, ROSELINE Thakur 703.0 NAIL INGROWN 04/22/2008 BLANCA ROBINS, YONATHAN 703.0 NAIL INGROWN 04/22/2008 OEWN CHAIR, LESLY R 703.0 NAIL INGROWN 04/22/2008 TOBY PHD, ROSELINE Thakur 703.0 NAIL INGROWN 04/22/2008 JENNIFER CHAIR, ARIANE R 703.0 NAIL INGROWN 04/22/2008 TOBY PHD, ROSELINE Thakur 703.0 NAIL INGROWN 04/22/2008 LILLY CHAIR, SP [place] 703.0 NAIL INGROWN 04/22/2008 SCHULZ DO, TREVOR K 703.0 NAIL INGROWN 04/22/2008 TOBY PHD, ROSELINE Thakur 703.0 NAIL INGROWN 04/22/2008 YONATHAN RIOS MD 703.0 NAIL INGROWN 04/22/2008 TOBY PHD, ROSELINE Thakur 703.0 NAIL INGROWN 04/22/2008 LOYD ROBINS, NADINE Baum 703.0 NAIL INGROWN 04/22/2008 WU CHAIR, NOEMI S 703.0 NAIL INGROWN 04/22/2008 TOBY PHD, ROSELINE Thakur 703.0 NAIL INGROWN 04/22/2008 WU CHAIR, NOEMI S 703.0 NAIL INGROWN 04/22/2008 YONATHAN RIOS MD 703.0 NAIL INGROWN 04/22/2008 WU CHAIR, NOEMI S 703.0 NAIL INGROWN 04/22/2008 WU CHAIR, NOEMI S 703.0 NAIL INGROWN 04/22/2008 TOBY PHD, ROSELINE Thakur 703.0 NAIL INGROWN 04/22/2008 ALYSE LIMA 703.0 NAIL INGROWN 04/22/2008 LEXI LEWIS, ALYSE M 703.0 NAIL INGROWN 04/22/2008 WU CHAIR, NOEMI S 703.0 NAIL INGROWN 04/22/2008 WU ARROYON, NOEMI S 703.0 NAIL INGROWN 04/22/2008 TOBY JANE, ROSELINE Thakur 703.0 NAIL INGROWN 04/22/2008 WU LOZADA, NOEMI S 703.0 NAIL INGROWN 04/24/2008 TOBY JANE, ROSELINE Thakur 992.5 HEAT EXHAUSTION UNSPECIFIED 04/24/2008 TOBY JANE, ROSELINE Thakur 992.5 HEAT EXHAUSTION UNSPECIFIED 04/24/2008 992.5 HEAT EXHAUSTION UNSPECIFIED 04/24/2008 DIPTI WASHBURN APRNNDA S 992.5 HEAT EXHAUSTION UNSPECIFIED 04/24/2008 WU ARROYON, NOEMI S 992.5 HEAT EXHAUSTION UNSPECIFIED 04/24/2008 SCHULZ DO, TREVOR K 992.5 HEAT EXHAUSTION UNSPECIFIED 04/24/2008 992.5 HEAT EXHAUSTION UNSPECIFIED 04/24/2008 JOSE WASHBURN APRNA S 992.5 HEAT EXHAUSTION UNSPECIFIED 04/24/2008 WU LOZADA, NOEMI S 992.5 HEAT EXHAUSTION UNSPECIFIED 04/24/2008 ROSELINE LUIS PHD 992.5 HEAT EXHAUSTION UNSPECIFIED 04/24/2008 992.5 HEAT EXHAUSTION UNSPECIFIED 04/24/2008 992.5 HEAT EXHAUSTION UNSPECIFIED 04/24/2008 992.5 HEAT EXHAUSTION UNSPECIFIED 04/24/2008 SCHULZ DO, TREVOR K 992.5 HEAT EXHAUSTION UNSPECIFIED 04/24/2008 TOBY JANE, ROSELINE Thakur 992.5 HEAT EXHAUSTION UNSPECIFIED 04/24/2008 SCHULZ DO, TREVOR K 992.5 HEAT EXHAUSTION UNSPECIFIED 04/24/2008 GABBIE MAYORGA APRN 992.5 HEAT EXHAUSTION UNSPECIFIED 04/24/2008 YONATHAN RIOS MD 992.5 HEAT EXHAUSTION UNSPECIFIED 04/24/2008 YONATHAN RIOS MD 992.5 HEAT EXHAUSTION UNSPECIFIED 04/24/2008 ROSELINE LUIS PHD 992.5 HEAT EXHAUSTION UNSPECIFIED 04/24/2008 ROSELINE LUIS PHD 992.5 HEAT EXHAUSTION UNSPECIFIED 04/24/2008 WU ARROYON, NOEMI S 992.5 HEAT EXHAUSTION UNSPECIFIED 04/24/2008 TOBY JANE, ROSELINE Thakur 992.5 HEAT EXHAUSTION UNSPECIFIED 04/24/2008 YONATHAN RIOS MD 992.5 HEAT EXHAUSTION UNSPECIFIED 04/24/2008 WU CHAIR, NOEMI S 992.5 HEAT EXHAUSTION UNSPECIFIED 04/24/2008 WU CHAIR, NOEMI S 992.5 HEAT EXHAUSTION UNSPECIFIED 04/24/2008 TIERRA LOZADA, GABBIE HOMAR 992.5 HEAT EXHAUSTION UNSPECIFIED 04/24/2008 TOBY JANE, ROSELINE Thakur 992.5 HEAT EXHAUSTION UNSPECIFIED 04/24/2008 TOBY JAEN, ROSELINE Thakur 992.5 HEAT EXHAUSTION UNSPECIFIED 04/24/2008 YONATHAN RIOS MD 992.5 HEAT EXHAUSTION UNSPECIFIED 04/24/2008 TOBY JANE, ROSELINE Thakur 992.5 HEAT EXHAUSTION UNSPECIFIED 04/24/2008 TIERRA LOZADA, GABBIE GRAF 992.5 HEAT EXHAUSTION UNSPECIFIED 04/24/2008 LURDES SCHULZ DOA K 992.5 HEAT EXHAUSTION UNSPECIFIED 04/24/2008 WU CHAIR, NOEMI S 992.5 HEAT EXHAUSTION UNSPECIFIED 04/24/2008 TOBY JANE, ROSELINE Thakur 992.5 HEAT EXHAUSTION UNSPECIFIED 04/24/2008 TOBY JANE, ROSELINE Thakur 992.5 HEAT EXHAUSTION UNSPECIFIED 04/24/2008 TIERRA LOZADA, GABBIE [place] 992.5 HEAT EXHAUSTION UNSPECIFIED 04/24/2008 TOBY JANE, ROSELINE Thakur 992.5 HEAT EXHAUSTION UNSPECIFIED 04/24/2008 YONATHAN RIOS MD 992.5 HEAT EXHAUSTION UNSPECIFIED 04/24/2008 OWEN CHAIR, LESLY R 992.5 HEAT EXHAUSTION UNSPECIFIED 04/24/2008 TOBY JANE, ROSELINE D 992.5 HEAT EXHAUSTION UNSPECIFIED 04/24/2008 JENNIFER CHAIR, ARIANE R 992.5 HEAT EXHAUSTION UNSPECIFIED 04/24/2008 TOBY JANE, ROSELINE D 992.5 HEAT EXHAUSTION UNSPECIFIED 04/24/2008 LILLY CHAIR, SP [place] 992.5 HEAT EXHAUSTION UNSPECIFIED 04/24/2008 SCHULZ DO, TREVOR K 992.5 HEAT EXHAUSTION UNSPECIFIED 04/24/2008 TOBY JANE, ROSELINE D 992.5 HEAT EXHAUSTION UNSPECIFIED 04/24/2008 BLANCA ROBINS, YONATHAN 992.5 HEAT EXHAUSTION UNSPECIFIED 04/24/2008 TOBY JANE, ROSELINE Thakur 992.5 HEAT EXHAUSTION UNSPECIFIED 04/24/2008 NADINE HARP MD 992.5 HEAT EXHAUSTION UNSPECIFIED 04/24/2008 WU LOZADA, NOEMI S 992.5 HEAT EXHAUSTION UNSPECIFIED 04/24/2008 TOBY JANE, ROSELINE Thakur 992.5 HEAT EXHAUSTION UNSPECIFIED 04/24/2008 WU ARROYON, NOEMI S 992.5 HEAT EXHAUSTION UNSPECIFIED 04/24/2008 YONATHAN RIOS MD 992.5 HEAT EXHAUSTION UNSPECIFIED 04/24/2008 WU ARROYON, NOEMI S 992.5 HEAT EXHAUSTION UNSPECIFIED 04/24/2008 WU LOZADA, NOEMI S 992.5 HEAT EXHAUSTION UNSPECIFIED 04/24/2008 TOBY JANE, ROSELINE Thakur 992.5 HEAT EXHAUSTION UNSPECIFIED 04/24/2008 LEXI FRENCH TEACHER, ALYSE M 992.5 HEAT EXHAUSTION UNSPECIFIED 04/24/2008 LEXI FRENCH TEACHER, ALYSE M 992.5 HEAT EXHAUSTION UNSPECIFIED 04/24/2008 WU ARROYON, NOEMI S 992.5 HEAT EXHAUSTION UNSPECIFIED 04/24/2008 WU LOZADA, NOEMI S 992.5 HEAT EXHAUSTION UNSPECIFIED 04/24/2008 TOBY JANE, ROSELINE Thakur 992.5 HEAT EXHAUSTION UNSPECIFIED 04/24/2008 WU LOZADA, NOEMI S 992.5 HEAT EXHAUSTION UNSPECIFIED 06/10/2008 TOBY JANE, ROSELINE Thakur 276.8 HYPOKALEMIA 06/10/2008 TOBY JANE, ROSELINE Thakur 276.8 HYPOKALEMIA 06/10/2008 276.8 HYPOKALEMIA 06/10/2008 WU LOZADA, NOEMI S 276.8 HYPOKALEMIA 06/10/2008 WU LOZADA, NOEMI S 276.8 HYPOKALEMIA 06/10/2008 TREVOR SCHULZ DO 276.8 HYPOKALEMIA 06/10/2008 276.8 HYPOKALEMIA 06/10/2008 WU LOZADA, NOEMI S 276.8 HYPOKALEMIA 06/10/2008 WU LOZADA, NOEMI S 276.8 HYPOKALEMIA 06/10/2008 TOBY JANE, ROSELINE Thakur 276.8 HYPOKALEMIA 06/10/2008 276.8 HYPOKALEMIA 06/10/2008 276.8 HYPOKALEMIA 06/10/2008 276.8 HYPOKALEMIA 06/10/2008 LURDES SCHULZ DOA K 276.8 HYPOKALEMIA 06/10/2008 TOBY JANE, ROSELINE Thakur 276.8 HYPOKALEMIA 06/10/2008 JAZZ STROUD TREVOR K 276.8 HYPOKALEMIA 06/10/2008 TIERRA LOZADA GABBIE HOMAR 276.8 HYPOKALEMIA 06/10/2008 YONATHAN RIOS MD 276.8 HYPOKALEMIA 06/10/2008 YONATHAN RIOS MD 276.8 HYPOKALEMIA 06/10/2008 TOYB JANE, ROSELINE Thakur 276.8 HYPOKALEMIA 06/10/2008 TOBY JANE, ROSELINE Thakur 276.8 HYPOKALEMIA 06/10/2008 NOEMI WASHBURN APRN S 276.8 HYPOKALEMIA 06/10/2008 ROSELINE LUIS PHD 276.8 HYPOKALEMIA 06/10/2008 YONATHAN RIOS MD 276.8 HYPOKALEMIA 06/10/2008 NOEMI WASHBURN APRN S 276.8 HYPOKALEMIA 06/10/2008 JOSE WASHBURN APRNA S 276.8 HYPOKALEMIA 06/10/2008 GABBIE MAYORGA APRN 276.8 HYPOKALEMIA 06/10/2008 ROSELINE LUIS PHD 276.8 HYPOKALEMIA 06/10/2008 ROSELINE LUIS PHD 276.8 HYPOKALEMIA 06/10/2008 YONATHAN RIOS MD 276.8 HYPOKALEMIA 06/10/2008 ROSELINE LUIS PHD 276.8 HYPOKALEMIA 06/10/2008 TIERRA LOZADA GABBIE HOMAR 276.8 HYPOKALEMIA 06/10/2008 SCHULZ LURDES STROUDA K 276.8 HYPOKALEMIA 06/10/2008 DIPTI WASHBURN APRNNDA S 276.8 HYPOKALEMIA 06/10/2008 ROSELINE LUIS PHD 276.8 HYPOKALEMIA 06/10/2008 TOBY JANE, ROSELINE Thakur 276.8 HYPOKALEMIA 06/10/2008 TIERRA LOZADA GABBIE GRAF 276.8 HYPOKALEMIA 06/10/2008 TOBY PHD, ROSELINE Thakur 276.8 HYPOKALEMIA 06/10/2008 YONATHAN RIOS MD 276.8 HYPOKALEMIA 06/10/2008 OWEN LOZADA, LESLY R 276.8 HYPOKALEMIA 06/10/2008 TOBY PHD, ROSELINE Thakur 276.8 HYPOKALEMIA 06/10/2008 JENNIFER LOZADA, ARIANE R 276.8 HYPOKALEMIA 06/10/2008 TOBY JANE, ROSELINE Thakur 276.8 HYPOKALEMIA 06/10/2008 LILLY LOZADA, SP [place] 276.8 HYPOKALEMIA 06/10/2008 TREVOR SCHULZ DO 276.8 HYPOKALEMIA 06/10/2008 TOBY JANE, ROSELINE Thakur 276.8 HYPOKALEMIA 06/10/2008 YONATHAN RIOS MD 276.8 HYPOKALEMIA 06/10/2008 TOBY JANE, ROSELINE Thakur 276.8 HYPOKALEMIA 06/10/2008 LOYD ROBINS, NADINE Baum 276.8 HYPOKALEMIA 06/10/2008 WU LOZADA, NOEMI S 276.8 HYPOKALEMIA 06/10/2008 TOBY JANE, ROSELINE Thakur 276.8 HYPOKALEMIA 06/10/2008 WU LOZADA, NOEMI S 276.8 HYPOKALEMIA 06/10/2008 YONATHAN RIOS MD 276.8 HYPOKALEMIA 06/10/2008 WU LOZADA, NOEMI S 276.8 HYPOKALEMIA 06/10/2008 DIPTI WASHBURN APRNNDA S 276.8 HYPOKALEMIA 06/10/2008 TOBY JANE, ROSELINE Thakur 276.8 HYPOKALEMIA 06/10/2008 LEXI LEWIS, ALYSE M 276.8 HYPOKALEMIA 06/10/2008 LEXI LEWIS, ALYSE M 276.8 HYPOKALEMIA 06/10/2008 WU LOZADA, NOEMI S 276.8 HYPOKALEMIA 06/10/2008 WU LOZADA, NOEMI S 276.8 HYPOKALEMIA 06/10/2008 TOBY JANE, ROSELINE Thakur 276.8 HYPOKALEMIA 06/10/2008 DIPTI WASHBURN APRNNDA S 276.8 HYPOKALEMIA 09/01/2008 ROSELINE LUIS PHD 296.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 EPISODIC MOOD DISORDER 09/01/2008 ROSELINE LUIS PHD 300.00 AN ANXIETY UNSPEC 09/01/2008 ROSELINE LUIS PHD 303.90 SA ALCOHOL DEPENDENCE 09/01/2008 ROSELINE LUIS PHD 307.47 SI DYSSOMNIA NOS 09/01/2008 ROSELINE LUIS PHD 296.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 EPISODIC MOOD DISORDER 09/01/2008 ROSELINE LUIS PHD 300.00 AN ANXIETY UNSPEC 09/01/2008 ROSELINE LUIS PHD 303.90 SA ALCOHOL DEPENDENCE 09/01/2008 ROSELINE LUIS PHD 307.47 SI DYSSOMNIA NOS 09/01/2008 296.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 EPISODIC MOOD DISORDER 09/01/2008 300.00 AN ANXIETY UNSPEC 09/01/2008 303.90 SA ALCOHOL DEPENDENCE 09/01/2008 307.47 SI DYSSOMNIA NOS 09/01/2008 DIPTI WASHBURN APRNNDA S 296.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 EPISODIC MOOD DISORDER 09/01/2008 DIPTI WASHBURN APRNNDA S 300.00 AN ANXIETY UNSPEC 09/01/2008 DIPTI WASHBURN APRNNDA S 303.90 SA ALCOHOL DEPENDENCE 09/01/2008 DIPTI WASHBURN APRNNDA S 307.47 SI DYSSOMNIA NOS 09/01/2008 WU LOZADA NOEMI S 296.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 EPISODIC MOOD DISORDER 09/01/2008 WU LOZADA, NOEMI S 300.00 AN ANXIETY UNSPEC 09/01/2008 WU LOZADA NOEMI S 303.90 SA ALCOHOL DEPENDENCE 09/01/2008 WU LOZADA NOEMI S 307.47 SI DYSSOMNIA NOS 09/01/2008 SCHULZ DO TREVOR K 296.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 EPISODIC MOOD DISORDER 09/01/2008 SCHULZ DO TREVOR K 300.00 AN ANXIETY UNSPEC 09/01/2008 SCHULZ DO TREVOR K 303.90 SA ALCOHOL DEPENDENCE 09/01/2008 SCHULZ DO, TREVOR K 307.47 SI DYSSOMNIA NOS 09/01/2008 296.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 EPISODIC MOOD DISORDER 09/01/2008 300.00 AN ANXIETY UNSPEC 09/01/2008 303.90 SA ALCOHOL DEPENDENCE 09/01/2008 307.47 SI DYSSOMNIA NOS 09/01/2008 WU CHAIR, NOEMI S 296.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 EPISODIC MOOD DISORDER 09/01/2008 WU CHAIR, NOEMI S 300.00 AN ANXIETY UNSPEC 09/01/2008 WU CHAIR, NOEMI S 303.90 SA ALCOHOL DEPENDENCE 09/01/2008 WU CHAIR, NOEMI S 307.47 SI DYSSOMNIA NOS 09/01/2008 WU CHAIR, NOEMI S 296.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 EPISODIC MOOD DISORDER 09/01/2008 WU CHAIR, NOEMI S 300.00 AN ANXIETY UNSPEC 09/01/2008 WU CHAIR, NOEMI S 303.90 SA ALCOHOL DEPENDENCE 09/01/2008 WU CHAIR, NOEMI S 307.47 SI DYSSOMNIA NOS 09/01/2008 ROSELINE LUIS PHD 296.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 EPISODIC MOOD DISORDER 09/01/2008 ROSELINE LUIS PHD 300.00 AN ANXIETY UNSPEC 09/01/2008 ROSELINE LUIS PHD 303.90 SA ALCOHOL DEPENDENCE 09/01/2008 ROSELINE LUIS PHD 307.47 SI DYSSOMNIA NOS 09/01/2008 296.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 EPISODIC MOOD DISORDER 09/01/2008 300.00 AN ANXIETY UNSPEC 09/01/2008 303.90 SA ALCOHOL DEPENDENCE 09/01/2008 307.47 SI DYSSOMNIA NOS 09/01/2008 296.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 EPISODIC MOOD DISORDER 09/01/2008 300.00 AN ANXIETY UNSPEC 09/01/2008 303.90 SA ALCOHOL DEPENDENCE 09/01/2008 307.47 SI DYSSOMNIA NOS 09/01/2008 296.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 EPISODIC MOOD DISORDER 09/01/2008 300.00 AN ANXIETY UNSPEC 09/01/2008 303.90 SA ALCOHOL DEPENDENCE 09/01/2008 307.47 SI DYSSOMNIA NOS 09/01/2008 JAZZ STROUD TREVOR K 296.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 EPISODIC MOOD DISORDER 09/01/2008 TREVOR SCHULZ DO K 300.00 AN ANXIETY UNSPEC 09/01/2008 JAZZ STROUD TREVOR K 303.90 SA ALCOHOL DEPENDENCE 09/01/2008 JAZZ STROUD TREVOR K 307.47 SI DYSSOMNIA NOS 09/01/2008 ROSELINE LUIS PHD 296.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 EPISODIC MOOD DISORDER 09/01/2008 ROSELINE LUIS PHD 300.00 AN ANXIETY UNSPEC 09/01/2008 TOBY JANE, ROSELINE Thakur 303.90 SA ALCOHOL DEPENDENCE 09/01/2008 TOBY JANE, ROSELINE Thakur 307.47 SI DYSSOMNIA NOS 09/01/2008 SCHULZ DO, TREVOR K 296.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 EPISODIC MOOD DISORDER 09/01/2008 SCHULZ DO, TREVOR K 300.00 AN ANXIETY UNSPEC 09/01/2008 SCHULZ DO, TREVOR K 303.90 SA ALCOHOL DEPENDENCE 09/01/2008 SCHULZ DO, TREVOR K 307.47 SI DYSSOMNIA NOS 09/01/2008 TIERRA LOZADA, GABBIE GRAF 296.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 EPISODIC MOOD DISORDER 09/01/2008 TIERRA LOZADA, GABBIE GRAF 300.00 AN ANXIETY UNSPEC 09/01/2008 MAYORGA NEVILLE, GABBIE DE LA OH 303.90 SA ALCOHOL DEPENDENCE 09/01/2008 TIERRA LOZADA GABBIE HOMAR 307.47 SI DYSSOMNIA NOS 09/01/2008 YONATHAN RIOS MD 296.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 EPISODIC MOOD DISORDER 09/01/2008 YONATHAN RIOS MD 300.00 AN ANXIETY UNSPEC 09/01/2008 YONATHAN RIOS MD 303.90 SA ALCOHOL DEPENDENCE 09/01/2008 YONATHAN RIOS MD 307.47 SI DYSSOMNIA NOS 09/01/2008 YONATHAN RIOS MD 296.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 EPISODIC MOOD DISORDER 09/01/2008 YONATHAN RIOS MD 300.00 AN ANXIETY UNSPEC 09/01/2008 YONATHAN RIOS MD 303.90 SA ALCOHOL DEPENDENCE 09/01/2008 YONATHAN RIOS MD 307.47 SI DYSSOMNIA NOS 09/01/2008 ROSELINE LUIS PHD 296.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 EPISODIC MOOD DISORDER 09/01/2008 ROSELINE LUIS PHD 300.00 AN ANXIETY UNSPEC 09/01/2008 ROSELINE LUIS PHD 303.90 SA ALCOHOL DEPENDENCE 09/01/2008 ROSELINE LUIS PHD 307.47 SI DYSSOMNIA NOS 09/01/2008 ROSELINE LUIS PHD 296.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 EPISODIC MOOD DISORDER 09/01/2008 ROSELINE LUIS PHD 300.00 AN ANXIETY UNSPEC 09/01/2008 TOBY JANE, ROSELINE Thakur 303.90 SA ALCOHOL DEPENDENCE 09/01/2008 ROSELINE LUIS PHD 307.47 SI DYSSOMNIA NOS 09/01/2008 WU CHAIR, NOEMI S 296.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 EPISODIC MOOD DISORDER 09/01/2008 WU CHAIR, NOEMI S 300.00 AN ANXIETY UNSPEC 09/01/2008 WU CHAIR, NOEMI S 303.90 SA ALCOHOL DEPENDENCE 09/01/2008 WU CHAIR, NOEMI S 307.47 SI DYSSOMNIA NOS 09/01/2008 TOBY PHD, ROSELINE Thakur 296.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 EPISODIC MOOD DISORDER 09/01/2008 TOBY PHD, ROSELINE Thakur 300.00 AN ANXIETY UNSPEC 09/01/2008 TOBY PHD, ROSELINE Thakur 303.90 SA ALCOHOL DEPENDENCE 09/01/2008 TOBY PHD, ROSELINE Thakur 307.47 SI DYSSOMNIA NOS 09/01/2008 YONATHAN RIOS MD 296.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 EPISODIC MOOD DISORDER 09/01/2008 YONATHAN RIOS MD 300.00 AN ANXIETY UNSPEC 09/01/2008 YONATHAN RIOS MD 303.90 SA ALCOHOL DEPENDENCE 09/01/2008 YONATHAN RIOS MD 307.47 SI DYSSOMNIA NOS 09/01/2008 WU LOZADA, NOEMI S 296.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 EPISODIC MOOD DISORDER 09/01/2008 WU ARROYON, NOEMI S 300.00 AN ANXIETY UNSPEC 09/01/2008 WU LOZADA, NOEMI S 303.90 SA ALCOHOL DEPENDENCE 09/01/2008 WU ARROYON, NOEMI S 307.47 SI DYSSOMNIA NOS 09/01/2008 WU CHAIR, NOEMI S 296.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 EPISODIC MOOD DISORDER 09/01/2008 WU CHAIR, NOEMI S 300.00 AN ANXIETY UNSPEC 09/01/2008 WU CHAIR, NOEMI S 303.90 SA ALCOHOL DEPENDENCE 09/01/2008 WU CHAIR, NOEMI S 307.47 SI DYSSOMNIA NOS 09/01/2008 TIERRA LOZADA GABBIE HOMAR 296.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 EPISODIC MOOD DISORDER 09/01/2008 GABBIE MAYORGA APRN 300.00 AN ANXIETY UNSPEC 09/01/2008 GABBIE MAYORGA APRN 303.90 SA ALCOHOL DEPENDENCE 09/01/2008 GABBIE MAYORGA APRN 307.47 SI DYSSOMNIA NOS 09/01/2008 TOBY JANE, ROSELINE Thakur 296.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 EPISODIC MOOD DISORDER 09/01/2008 ROSELINE LUIS PHD 300.00 AN ANXIETY UNSPEC 09/01/2008 ROSELINE LUIS PHD 303.90 SA ALCOHOL DEPENDENCE 09/01/2008 ROSELINE LUIS PHD 307.47 SI DYSSOMNIA NOS 09/01/2008 ROSELINE LUIS PHD 296.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 EPISODIC MOOD DISORDER 09/01/2008 ROSELINE LUIS PHD 300.00 AN ANXIETY UNSPEC 09/01/2008 ROSELINE LUIS PHD 303.90 SA ALCOHOL DEPENDENCE 09/01/2008 ROSELINE LUIS PHD 307.47 SI DYSSOMNIA NOS 09/01/2008 YONATHAN RIOS MD 296.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 EPISODIC MOOD DISORDER 09/01/2008 YONATHAN RIOS MD 300.00 AN ANXIETY UNSPEC 09/01/2008 YONATHAN RIOS MD 303.90 SA ALCOHOL DEPENDENCE 09/01/2008 YONATHAN RIOS MD 307.47 SI DYSSOMNIA NOS 09/01/2008 ROSELINE LUIS PHD 296.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 EPISODIC MOOD DISORDER 09/01/2008 ROSELINE LUSI PHD 300.00 AN ANXIETY UNSPEC 09/01/2008 ROSELINE LUIS PHD 303.90 SA ALCOHOL DEPENDENCE 09/01/2008 ROSELINE LUIS PHD 307.47 SI DYSSOMNIA NOS 09/01/2008 GABBIE MAYORGA APRN 296.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 EPISODIC MOOD DISORDER 09/01/2008 GABBIE MAYORGA APRN 300.00 AN ANXIETY UNSPEC 09/01/2008 GABBIE MAYORGA APRN 303.90 SA ALCOHOL DEPENDENCE 09/01/2008 GABBIE MAYORGA APRN 307.47 SI DYSSOMNIA NOS 09/01/2008 SCHULZ DO, TREVOR K 296.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 EPISODIC MOOD DISORDER 09/01/2008 SCHULZ DO, TREVOR K 300.00 AN ANXIETY UNSPEC 09/01/2008 SCHULZ DO, TREVOR K 303.90 SA ALCOHOL DEPENDENCE 09/01/2008 SCHULZ DO, TREVOR K 307.47 SI DYSSOMNIA NOS 09/01/2008 WU LOZADA ONEMI S 296.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 EPISODIC MOOD DISORDER 09/01/2008 DIPTI WASHBURN APRNNDA S 300.00 AN ANXIETY UNSPEC 09/01/2008 DIPTI WASHBURN APRNNDA S 303.90 SA ALCOHOL DEPENDENCE 09/01/2008 WU NEVILLENOEMI S 307.47 SI DYSSOMNIA NOS 09/01/2008 ROSELINE LUIS PHD 296.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 EPISODIC MOOD DISORDER 09/01/2008 ROSELINE LUIS PHD 300.00 AN ANXIETY UNSPEC 09/01/2008 ROSELINE LUIS PHD 303.90 SA ALCOHOL DEPENDENCE 09/01/2008 ROSELINE LUIS PHD 307.47 SI DYSSOMNIA NOS 09/01/2008 ROSELINE LUIS PHD 296.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 EPISODIC MOOD DISORDER 09/01/2008 ROSELINE LUIS PHD 300.00 AN ANXIETY UNSPEC 09/01/2008 ROSELINE LUIS PHD 303.90 SA ALCOHOL DEPENDENCE 09/01/2008 ROSELINE LUIS PHD 307.47 SI DYSSOMNIA NOS 09/01/2008 MAYORGAHAYLEE LOZADA GABBIE GRAF 296.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 EPISODIC MOOD DISORDER 09/01/2008 TIERRA LOZADA GABBIE DE [place] 300.00 AN ANXIETY UNSPEC 09/01/2008 TIERRA LOZADA GABBIE DE [place] OH 303.90 SA ALCOHOL DEPENDENCE 09/01/2008 TIERRA LOZADA GABBIE GRAF 307.47 SI DYSSOMNIA NOS 09/01/2008 ROSELINE LUIS PHD 296.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 EPISODIC MOOD DISORDER 09/01/2008 ROSELINE LUIS PHD 300.00 AN ANXIETY UNSPEC 09/01/2008 ROSELINE LUIS PHD 303.90 SA ALCOHOL DEPENDENCE 09/01/2008 ROSELINE LUIS PHD 307.47 SI DYSSOMNIA NOS 09/01/2008 YONATHAN RIOS MD 296.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 EPISODIC MOOD DISORDER 09/01/2008 YONATHAN RIOS MD 300.00 AN ANXIETY UNSPEC 09/01/2008 YONATHAN RIOS MD 303.90 SA ALCOHOL DEPENDENCE 09/01/2008 YONATHAN RIOS MD 307.47 SI DYSSOMNIA NOS 09/01/2008 GREGORIO WEAVER APRNRICIA R 296.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 EPISODIC MOOD DISORDER 09/01/2008 GREGORIO WEAVER APRNRICIA R 300.00 AN ANXIETY UNSPEC 09/01/2008 OWEN LOZADA LESLY R 303.90 SA ALCOHOL DEPENDENCE 09/01/2008 GREGORIO WEAVER APRNRICIA R 307.47 SI DYSSOMNIA NOS 09/01/2008 ROSELINE LUIS PHD 296.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 EPISODIC MOOD DISORDER 09/01/2008 ROSELINE LUIS PHD 300.00 AN ANXIETY UNSPEC 09/01/2008 ROSELINE LUIS PHD 303.90 SA ALCOHOL DEPENDENCE 09/01/2008 ROSELINE LUIS PHD 307.47 SI DYSSOMNIA NOS 09/01/2008 JENNIFER LOZADA, ARIANE R 296.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 EPISODIC MOOD DISORDER 09/01/2008 JENNIFER LOZADA, ARIANE R 300.00 AN ANXIETY UNSPEC 09/01/2008 JENNIFER LOZADA, ARIANE R 303.90 SA ALCOHOL DEPENDENCE 09/01/2008 JENNIFER LOZADA, ARIANE R 307.47 SI DYSSOMNIA NOS 09/01/2008 ROSELINE LUIS PHD 296.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 EPISODIC MOOD DISORDER 09/01/2008 ROSELINE LUIS PHD 300.00 AN ANXIETY UNSPEC 09/01/2008 ROSELINE LUIS PHD 303.90 SA ALCOHOL DEPENDENCE 09/01/2008 ROSELINE LUIS PHD 307.47 SI DYSSOMNIA NOS 09/01/2008 SP CARR APRN 296.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 EPISODIC MOOD DISORDER 09/01/2008 LILLY LOZADA SP Timo 300.00 AN ANXIETY UNSPEC 09/01/2008 LILLY LOZADA SP T 303.90 SA ALCOHOL DEPENDENCE 09/01/2008 LILLY LOZADA SP T 307.47 SI DYSSOMNIA NOS 09/01/2008 SCHULZ DO, TREVOR K 296.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 EPISODIC MOOD DISORDER 09/01/2008 SCHULZ DO, TREVOR K 300.00 AN ANXIETY UNSPEC 09/01/2008 SCHULZ DO, TREVOR K 303.90 SA ALCOHOL DEPENDENCE 09/01/2008 JAZZ STROUD TREVOR K 307.47 SI DYSSOMNIA NOS 09/01/2008 ROSELINE LUIS PHD 296.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 EPISODIC MOOD DISORDER 09/01/2008 ROSELINE LUIS PHD 300.00 AN ANXIETY UNSPEC 09/01/2008 ROSELINE LUIS PHD 303.90 SA ALCOHOL DEPENDENCE 09/01/2008 ROSELINE LUIS PHD 307.47 SI DYSSOMNIA NOS 09/01/2008 YONATHAN RIOS MD 296.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 EPISODIC MOOD DISORDER 09/01/2008 YONATHAN RIOS MD 300.00 AN ANXIETY UNSPEC 09/01/2008 YONATHAN RIOS MD 303.90 SA ALCOHOL DEPENDENCE 09/01/2008 YONATHAN RIOS MD 307.47 SI DYSSOMNIA NOS 09/01/2008 ROSELINE LUIS PHD 296.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 EPISODIC MOOD DISORDER 09/01/2008 TOBY JANE, ROSELINE Thakur 300.00 AN ANXIETY UNSPEC 09/01/2008 TOBY JANE, ROSELINE Thakur 303.90 SA ALCOHOL DEPENDENCE 09/01/2008 TOBY JANE, ROSELINE Thakur 307.47 SI DYSSOMNIA NOS 09/01/2008 NADINE HARP MD N 296.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 EPISODIC MOOD DISORDER 09/01/2008 NADINE HARP MD N 300.00 AN ANXIETY UNSPEC 09/01/2008 LOYD ROBINS, NADINE N 303.90 SA ALCOHOL DEPENDENCE 09/01/2008 NADINE HARP MD 307.47 SI DYSSOMNIA NOS 09/01/2008 WU LOZADA, NOEMI S 296.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 EPISODIC MOOD DISORDER 09/01/2008 WU LOZADA, NOEMI S 300.00 AN ANXIETY UNSPEC 09/01/2008 WU LOZADA, NOEMI S 303.90 SA ALCOHOL DEPENDENCE 09/01/2008 WU LOZADA, NOEMI S 307.47 SI DYSSOMNIA NOS 09/01/2008 ROSELINE LUIS PHD 296.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 EPISODIC MOOD DISORDER 09/01/2008 ROSELINE LUIS PHD 300.00 AN ANXIETY UNSPEC 09/01/2008 ROSELINE LUIS PHD 303.90 SA ALCOHOL DEPENDENCE 09/01/2008 ROSELINE LUIS PHD 307.47 SI DYSSOMNIA NOS 09/01/2008 WU LOZADA, NOEMI S 296.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 EPISODIC MOOD DISORDER 09/01/2008 WU LOZADA, NOEMI S 300.00 AN ANXIETY UNSPEC 09/01/2008 WU LOZADA, NOEMI S 303.90 SA ALCOHOL DEPENDENCE 09/01/2008 WU LOZADA, NOEMI S 307.47 SI DYSSOMNIA NOS 09/01/2008 YONATHAN RIOS MD 296.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 EPISODIC MOOD DISORDER 09/01/2008 YONATHAN RIOS MD 300.00 AN ANXIETY UNSPEC 09/01/2008 YONATHAN RIOS MD 303.90 SA ALCOHOL DEPENDENCE 09/01/2008 OYNATHAN RIOS MD 307.47 SI DYSSOMNIA NOS 09/01/2008 WU LOZADA NOEMI S 296.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 EPISODIC MOOD DISORDER 09/01/2008 WU CHAIR, NOEMI S 300.00 AN ANXIETY UNSPEC 09/01/2008 WU CHAIR, NOEMI S 303.90 SA ALCOHOL DEPENDENCE 09/01/2008 WU CHAIR, NOEMI S 307.47 SI DYSSOMNIA NOS 09/01/2008 WU CHAIR, NOEMI S 296.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 EPISODIC MOOD DISORDER 09/01/2008 WU CHAIR, NOEMI S 300.00 AN ANXIETY UNSPEC 09/01/2008 WU CHAIR, NOEMI S 303.90 SA ALCOHOL DEPENDENCE 09/01/2008 WU CHAIR, NOEMI S 307.47 SI DYSSOMNIA NOS 09/01/2008 TOBY PHD, ROSELINE Thakur 296.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 EPISODIC MOOD DISORDER 09/01/2008 TOBY JANE, ROSELINE Thakur 300.00 AN ANXIETY UNSPEC 09/01/2008 TOBY JANE, ROSELINE Thakur 303.90 SA ALCOHOL DEPENDENCE 09/01/2008 TOBY JANE, ROSELINE Thakur 307.47 SI DYSSOMNIA NOS 09/01/2008 LEXI FRENCH TEACHER, ALYSE M 296.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 EPISODIC MOOD DISORDER 09/01/2008 LEXI FRENCH TEACHER, ALYSE M 300.00 AN ANXIETY UNSPEC 09/01/2008 LEXI FRENCH TEACHER, ALYSE M 303.90 SA ALCOHOL DEPENDENCE 09/01/2008 LEXI FRENCH TEACHER, ALYSE M 307.47 SI DYSSOMNIA NOS 09/01/2008 LEXI FRENCH TEACHER, ALYSE M 296.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 EPISODIC MOOD DISORDER 09/01/2008 LEXI FRENCH TEACHER, ALYSE M 300.00 AN ANXIETY UNSPEC 09/01/2008 LEXI FRENCH TEACHER, ALYSE M 303.90 SA ALCOHOL DEPENDENCE 09/01/2008 LEXI FRENCH TEACHER, ALYSE M 307.47 SI DYSSOMNIA NOS 09/01/2008 WU CHAIR, NOEMI S 296.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 EPISODIC MOOD DISORDER 09/01/2008 WU CHAIR, NOEMI S 300.00 AN ANXIETY UNSPEC 09/01/2008 WU CHAIR, NOEMI S 303.90 SA ALCOHOL DEPENDENCE 09/01/2008 WU CHAIR, NOEMI S 307.47 SI DYSSOMNIA NOS 09/01/2008 WU CHAIR, NOEMI S 296.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 EPISODIC MOOD DISORDER 09/01/2008 WU LOZADA, NOEMI S 300.00 AN ANXIETY UNSPEC 09/01/2008 WU LOZADA, NOEMI S 303.90 SA ALCOHOL DEPENDENCE 09/01/2008 WU LOZADA, NOEMI S 307.47 SI DYSSOMNIA NOS 09/01/2008 ROSELINE LUIS PHD 296.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 EPISODIC MOOD DISORDER 09/01/2008 ROSELINE LUIS PHD 300.00 AN ANXIETY UNSPEC 09/01/2008 ROSELINE LUIS PHD 303.90 SA ALCOHOL DEPENDENCE 09/01/2008 ROSELINE LUIS PHD 307.47 SI DYSSOMNIA NOS 09/01/2008 WU LOZADA, NOEMI S 296.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 EPISODIC MOOD DISORDER 09/01/2008 WU LOZADA, NOEMI S 300.00 AN ANXIETY UNSPEC 09/01/2008 WU LOZADA, NOEMI S 303.90 SA ALCOHOL DEPENDENCE 09/01/2008 WU LOZADA, NOEMI S 307.47 SI DYSSOMNIA NOS 09/09/2008 ROSELINE LUIS PHD 250.00 DIABETES MELLITUS TYPE 2 09/09/2008 ROSELINE LUIS PHD 786.2 COUGH 09/09/2008 ROSELINE LUIS PHD 250.00 DIABETES MELLITUS TYPE 2 09/09/2008 ROSELINE LUIS PHD 786.2 COUGH 09/09/2008 250.00 DIABETES MELLITUS TYPE 2 09/09/2008 786.2 COUGH 09/09/2008 WU LOZADA, NOEMI S 250.00 DIABETES MELLITUS TYPE 2 09/09/2008 WU LOZADA, NOEMI S 786.2 COUGH 09/09/2008 WU LOZADA, NOEMI S 250.00 DIABETES MELLITUS TYPE 2 09/09/2008 WU LOZADA, NOEMI S 786.2 COUGH 09/09/2008 SCHULZ DO, TREVOR K 250.00 DIABETES MELLITUS TYPE 2 09/09/2008 SCHULZ DO, TREVOR K 786.2 COUGH 09/09/2008 250.00 DIABETES MELLITUS TYPE 2 09/09/2008 786.2 COUGH 09/09/2008 WU LOZADA, NOEMI S 250.00 DIABETES MELLITUS TYPE 2 09/09/2008 WU LOZADA, NOEMI S 786.2 COUGH 09/09/2008 WU LOZADA, NOEMI S 250.00 DIABETES MELLITUS TYPE 2 09/09/2008 DIPTI WASHBURN APRNNDA S 786.2 COUGH 09/09/2008 TOBY JANE, ROSELINE Thakur 250.00 DIABETES MELLITUS TYPE 2 09/09/2008 TOBY JANE, ROSELINE Thakur 786.2 COUGH 09/09/2008 250.00 DIABETES MELLITUS TYPE 2 09/09/2008 786.2 COUGH 09/09/2008 250.00 DIABETES MELLITUS TYPE 2 09/09/2008 786.2 COUGH 09/09/2008 250.00 DIABETES MELLITUS TYPE 2 09/09/2008 786.2 COUGH 09/09/2008 SCHULZ DO, TREVOR K 250.00 DIABETES MELLITUS TYPE 2 09/09/2008 SCHULZ DO, TREVOR K 786.2 COUGH 09/09/2008 TOBY JANE, ROSELINE Thakur 250.00 DIABETES MELLITUS TYPE 2 09/09/2008 TOBY JANE, ROSELINE Thakur 786.2 COUGH 09/09/2008 SCHULZ DO, TREVOR K 250.00 DIABETES MELLITUS TYPE 2 09/09/2008 SCHULZ DO, TREVOR K 786.2 COUGH 09/09/2008 GABBIE MAYORGA APRN 250.00 DIABETES MELLITUS TYPE 2 09/09/2008 TIERRA LOZADA GABBIE [place] 786.2 COUGH 09/09/2008 YONATHAN RIOS MD 250.00 DIABETES MELLITUS TYPE 2 09/09/2008 YONATHAN RIOS MD 786.2 COUGH 09/09/2008 YONATHAN RIOS MD 250.00 DIABETES MELLITUS TYPE 2 09/09/2008 YONATHAN RIOS MD 786.2 COUGH 09/09/2008 TOBY JANE, ROSELINE Thakur 250.00 DIABETES MELLITUS TYPE 2 09/09/2008 ROSELINE LUIS PHD 786.2 COUGH 09/09/2008 TOBY JANE, ROSELINE Thakur 250.00 DIABETES MELLITUS TYPE 2 09/09/2008 TOBY JANE, ROSELINE Thakur 786.2 COUGH 09/09/2008 NOEMI WASHBURN APRN S 250.00 DIABETES MELLITUS TYPE 2 09/09/2008 NOEMI WASHBURN APRN S 786.2 COUGH 09/09/2008 TOBY JANE, ROSELINE Thakur 250.00 DIABETES MELLITUS TYPE 2 09/09/2008 TOBY JANE, ROSELINE Thakur 786.2 COUGH 09/09/2008 YONATHAN RIOS MD 250.00 DIABETES MELLITUS TYPE 2 09/09/2008 YONATHAN RIOS MD 786.2 COUGH 09/09/2008 WU LOZADA, NOEMI S 250.00 DIABETES MELLITUS TYPE 2 09/09/2008 WU LOZADA, NOEMI S 786.2 COUGH 09/09/2008 WU LOZADA, NOEMI S 250.00 DIABETES MELLITUS TYPE 2 09/09/2008 WU LOZADA, NOEMI S 786.2 COUGH 09/09/2008 TIERRA LOZADA, GABBIE GRAF 250.00 DIABETES MELLITUS TYPE 2 09/09/2008 TIERRA LOZADA, GABBIE HOMAR 786.2 COUGH 09/09/2008 TOBY JANE, ROSELINE Thakur 250.00 DIABETES MELLITUS TYPE 2 09/09/2008 TOBY JANE, ROSELINE Thakur 786.2 COUGH 09/09/2008 TOBY JANE, ROSELINE Thakur 250.00 DIABETES MELLITUS TYPE 2 09/09/2008 TOBY JANE, ROSELINE Thakur 786.2 COUGH 09/09/2008 YONATHAN RIOS MD 250.00 DIABETES MELLITUS TYPE 2 09/09/2008 YONATHAN RIOS MD 786.2 COUGH 09/09/2008 TOBY JANE, ROSELINE Thakur 250.00 DIABETES MELLITUS TYPE 2 09/09/2008 TOBY JANE, ROSELINE Thakur 786.2 COUGH 09/09/2008 TIERRA LOZADA, GABBIE GRAF 250.00 DIABETES MELLITUS TYPE 2 09/09/2008 TIERRA LOZADA GABBIE HOMAR 786.2 COUGH 09/09/2008 SCHULZ DO, TREVOR K 250.00 DIABETES MELLITUS TYPE 2 09/09/2008 SCHULZ DO, TREVOR K 786.2 COUGH 09/09/2008 WU LOZADA, NOEMI S 250.00 DIABETES MELLITUS TYPE 2 09/09/2008 WU LOZADA NOEMI S 786.2 COUGH 09/09/2008 TOBY JANE, ROSELINE D 250.00 DIABETES MELLITUS TYPE 2 09/09/2008 TOBY JANE, ROSELINE Thakur 786.2 COUGH 09/09/2008 TOBY JANE, ROSELINE D 250.00 DIABETES MELLITUS TYPE 2 09/09/2008 TOBY JANE, ROSELINE Thakur 786.2 COUGH 09/09/2008 TIERRA LOZADA, GABBIE GRAF 250.00 DIABETES MELLITUS TYPE 2 09/09/2008 TIERRA LOZADA GABBIE HOMAR 786.2 COUGH 09/09/2008 TOBY JANE, ROSELINE D 250.00 DIABETES MELLITUS TYPE 2 09/09/2008 ROSELINE LUIS PHD 786.2 COUGH 09/09/2008 YONATHAN RIOS MD 250.00 DIABETES MELLITUS TYPE 2 09/09/2008 YONATHAN RIOS MD 786.2 COUGH 09/09/2008 OWEN CHAIR, LESLY R 250.00 DIABETES MELLITUS TYPE 2 09/09/2008 OWEN ARROYON, LESLY R 786.2 COUGH 09/09/2008 TOBY JANE, ROSELINE Thakur 250.00 DIABETES MELLITUS TYPE 2 09/09/2008 TOBY JANE, ROSELINE Thakur 786.2 COUGH 09/09/2008 JENNIFER ARROYON, ARIANE R 250.00 DIABETES MELLITUS TYPE 2 09/09/2008 JENNIFER RAROYON, ARIANE R 786.2 COUGH 09/09/2008 TOBY PHD, ROSELINE Thakur 250.00 DIABETES MELLITUS TYPE 2 09/09/2008 TOBY JANE, ROSELINE Thakur 786.2 COUGH 09/09/2008 LILLY ARROYON, SP T 250.00 DIABETES MELLITUS TYPE 2 09/09/2008 LILLY ARROYON, SP T 786.2 COUGH 09/09/2008 SCHULZ DO, TREVOR K 250.00 DIABETES MELLITUS TYPE 2 09/09/2008 SCHULZ DO, TREVOR K 786.2 COUGH 09/09/2008 TOBY JANE, ROSELINE Thakur 250.00 DIABETES MELLITUS TYPE 2 09/09/2008 TOBY JANE, ROSELINE Thakur 786.2 COUGH 09/09/2008 YONATHAN RIOS MD 250.00 DIABETES MELLITUS TYPE 2 09/09/2008 YONATHAN RIOS MD 786.2 COUGH 09/09/2008 TOBY JANE, ROSELINE Thakur 250.00 DIABETES MELLITUS TYPE 2 09/09/2008 TOBY JANE, ROSELINE Thakur 786.2 COUGH 09/09/2008 NADINE HARP MD N 250.00 DIABETES MELLITUS TYPE 2 09/09/2008 NADINE HARP MD 786.2 COUGH 09/09/2008 WU LOZADA, NOEMI S 250.00 DIABETES MELLITUS TYPE 2 09/09/2008 DIPTI WASHBURN APRNNDA S 786.2 COUGH 09/09/2008 TOBY JANE, ROSELINE Thakur 250.00 DIABETES MELLITUS TYPE 2 09/09/2008 TOBY JANE, ROSELINE Thakur 786.2 COUGH 09/09/2008 WU LOZADA, NOEMI S 250.00 DIABETES MELLITUS TYPE 2 09/09/2008 WU LOZADA, NOEMI S 786.2 COUGH 09/09/2008 YONATHAN RIOS MD 250.00 DIABETES MELLITUS TYPE 2 09/09/2008 YONATHAN RIOS MD 786.2 COUGH 09/09/2008 WU LOZADA, NOEMI S 250.00 DIABETES MELLITUS TYPE 2 09/09/2008 WU LOZADA, NOEMI S 786.2 COUGH 09/09/2008 WU LOZADA, NOEMI S 250.00 DIABETES MELLITUS TYPE 2 09/09/2008 WU LOZADA, NOEMI S 786.2 COUGH 09/09/2008 TOBY JANE, ROSELINE Thakur 250.00 DIABETES MELLITUS TYPE 2 09/09/2008 TOBY JANE, ROSELINE Thakur 786.2 COUGH 09/09/2008 LEXI FRENCH TEACHER, ALYSE M 250.00 DIABETES MELLITUS TYPE 2 09/09/2008 LEXI FRENCH TEACHER, ALYSE M 786.2 COUGH 09/09/2008 LEXI FRENCH TEACHER, ALYSE M 250.00 DIABETES MELLITUS TYPE 2 09/09/2008 LEXI FRENCH TEACHER, ALYSE M 786.2 COUGH 09/09/2008 WU LOZADA, NOEMI S 250.00 DIABETES MELLITUS TYPE 2 09/09/2008 WU LOZADA, NOEMI S 786.2 COUGH 09/09/2008 WU LOZADA, NOEMI S 250.00 DIABETES MELLITUS TYPE 2 09/09/2008 WU LOZADA, NOEMI S 786.2 COUGH 09/09/2008 TOBY JANE, ROSELINE Thakur 250.00 DIABETES MELLITUS TYPE 2 09/09/2008 TOBY JANE, ROSELINE Thakur 786.2 COUGH 09/09/2008 WU LOZADA, NOEMI S 250.00 DIABETES MELLITUS TYPE 2 09/09/2008 WU LOZADA, NOEMI S 786.2 COUGH 09/10/2008 TOBY JANE, ROSELINE Thakur 250.02 DIABETES MELLITUS POORLY CONTROLLED 09/10/2008 TOBY PHD, ROSELINE Thakur 276.7 PSEUDOHYPERKALEMIA 09/10/2008 TOBY JANE, ROSELINE Thakur 250.02 DIABETES MELLITUS POORLY CONTROLLED 09/10/2008 TOBY JANE, ROSELINE Thakur 276.7 PSEUDOHYPERKALEMIA 09/10/2008 250.02 DIABETES MELLITUS POORLY CONTROLLED 09/10/2008 276.7 PSEUDOHYPERKALEMIA 09/10/2008 WU LOZADA, NOEMI S 250.02 DIABETES MELLITUS POORLY CONTROLLED 09/10/2008 WU CHAIR, NOEMI S 276.7 PSEUDOHYPERKALEMIA 09/10/2008 DIPTI WASHBURN APRNNDA S 250.02 DIABETES MELLITUS POORLY CONTROLLED 09/10/2008 WU LOZADA NOEMI S 276.7 PSEUDOHYPERKALEMIA 09/10/2008 LURDES SCHULZ DOA K 250.02 DIABETES MELLITUS POORLY CONTROLLED 09/10/2008 TREVOR SCHULZ DO K 276.7 PSEUDOHYPERKALEMIA 09/10/2008 250.02 DIABETES MELLITUS POORLY CONTROLLED 09/10/2008 276.7 PSEUDOHYPERKALEMIA 09/10/2008 DIPTI WASHBURN APRNNDA S 250.02 DIABETES MELLITUS POORLY CONTROLLED 09/10/2008 DIPTI WASHBURN APRNNDA S 276.7 PSEUDOHYPERKALEMIA 09/10/2008 DIPTI WASHBURN APRNNDA S 250.02 DIABETES MELLITUS POORLY CONTROLLED 09/10/2008 WU LOZADA NOEMI S 276.7 PSEUDOHYPERKALEMIA 09/10/2008 TOBY JANE, ROSELINE Thakur 250.02 DIABETES MELLITUS POORLY CONTROLLED 09/10/2008 TOBY JANE, ROSELINE Thakur 276.7 PSEUDOHYPERKALEMIA 09/10/2008 250.02 DIABETES MELLITUS POORLY CONTROLLED 09/10/2008 276.7 PSEUDOHYPERKALEMIA 09/10/2008 250.02 DIABETES MELLITUS POORLY CONTROLLED 09/10/2008 276.7 PSEUDOHYPERKALEMIA 09/10/2008 250.02 DIABETES MELLITUS POORLY CONTROLLED 09/10/2008 276.7 PSEUDOHYPERKALEMIA 09/10/2008 TREVOR SCHULZ DO K 250.02 DIABETES MELLITUS POORLY CONTROLLED 09/10/2008 TREVOR SCHULZ DO K 276.7 PSEUDOHYPERKALEMIA 09/10/2008 TOBY JANE, ROSELINE Thakur 250.02 DIABETES MELLITUS POORLY CONTROLLED 09/10/2008 TOBY JANE, ROSELINE Thakur 276.7 PSEUDOHYPERKALEMIA 09/10/2008 LURDES SCHULZ DOA K 250.02 DIABETES MELLITUS POORLY CONTROLLED 09/10/2008 LURDES SCHULZ DOA K 276.7 PSEUDOHYPERKALEMIA 09/10/2008 GABBIE MAYORGA APRN 250.02 DIABETES MELLITUS POORLY CONTROLLED 09/10/2008 GABBIE MAYORGA APRN 276.7 PSEUDOHYPERKALEMIA 09/10/2008 YONATHAN RIOS MD 250.02 DIABETES MELLITUS POORLY CONTROLLED 09/10/2008 YONATHAN RIOS MD 276.7 PSEUDOHYPERKALEMIA 09/10/2008 YONATHAN RIOS MD 250.02 DIABETES MELLITUS POORLY CONTROLLED 09/10/2008 YONATHAN RIOS MD 276.7 PSEUDOHYPERKALEMIA 09/10/2008 TOBY JANE, ROSELINE Thakur 250.02 DIABETES MELLITUS POORLY CONTROLLED 09/10/2008 TOBY JANE, ROSELINE Thakur 276.7 PSEUDOHYPERKALEMIA 09/10/2008 TOBY JANE, ROSELINE Thakur 250.02 DIABETES MELLITUS POORLY CONTROLLED 09/10/2008 TOBY JANE, ROSELINE Thakur 276.7 PSEUDOHYPERKALEMIA 09/10/2008 JOSE WASHBURN APRNA S 250.02 DIABETES MELLITUS POORLY CONTROLLED 09/10/2008 JOSE WASHBURN APRNA S 276.7 PSEUDOHYPERKALEMIA 09/10/2008 TOBY JANE, ROSELINE Thakur 250.02 DIABETES MELLITUS POORLY CONTROLLED 09/10/2008 TOBY JANE, ROSELINE Thakur 276.7 PSEUDOHYPERKALEMIA 09/10/2008 YONATHAN RIOS MD 250.02 DIABETES MELLITUS POORLY CONTROLLED 09/10/2008 YONATHAN RIOS MD 276.7 PSEUDOHYPERKALEMIA 09/10/2008 WU LOZADA NOEMI S 250.02 DIABETES MELLITUS POORLY CONTROLLED 09/10/2008 WU LOZADA NOEMI S 276.7 PSEUDOHYPERKALEMIA 09/10/2008 WU LOZADA NOEIM S 250.02 DIABETES MELLITUS POORLY CONTROLLED 09/10/2008 WU LOZADA NOEMI S 276.7 PSEUDOHYPERKALEMIA 09/10/2008 GABBIE MAYORGA APRN 250.02 DIABETES MELLITUS POORLY CONTROLLED 09/10/2008 GABBIE MAYORGA APRN 276.7 PSEUDOHYPERKALEMIA 09/10/2008 TOBY JANE, ROSELINE Thakur 250.02 DIABETES MELLITUS POORLY CONTROLLED 09/10/2008 TOBY JANE, ROSELINE Thakur 276.7 PSEUDOHYPERKALEMIA 09/10/2008 TOBY JANE, ROSELINE Thakur 250.02 DIABETES MELLITUS POORLY CONTROLLED 09/10/2008 TOBY JANE, ROSELINE Thakur 276.7 PSEUDOHYPERKALEMIA 09/10/2008 YONATHAN RIOS MD 250.02 DIABETES MELLITUS POORLY CONTROLLED 09/10/2008 YONATHAN RIOS MD 276.7 PSEUDOHYPERKALEMIA 09/10/2008 ROSELINE LUIS PHD 250.02 DIABETES MELLITUS POORLY CONTROLLED 09/10/2008 ROSELINE LUIS PHD 276.7 PSEUDOHYPERKALEMIA 09/10/2008 TIERRA LOZADA GABBIE HOMAR 250.02 DIABETES MELLITUS POORLY CONTROLLED 09/10/2008 TIERRA LOZADA GABBIE HOMAR 276.7 PSEUDOHYPERKALEMIA 09/10/2008 SCHULZ DO TREVOR K 250.02 DIABETES MELLITUS POORLY CONTROLLED 09/10/2008 SCHULZ DO, TREVOR K 276.7 PSEUDOHYPERKALEMIA 09/10/2008 NOEMI WASHBURN APRN S 250.02 DIABETES MELLITUS POORLY CONTROLLED 09/10/2008 NOEMI WASHBURN APRN S 276.7 PSEUDOHYPERKALEMIA 09/10/2008 ROSELINE LUIS PHD 250.02 DIABETES MELLITUS POORLY CONTROLLED 09/10/2008 ROSELINE LUIS PHD 276.7 PSEUDOHYPERKALEMIA 09/10/2008 ROSELINE LUIS PHD 250.02 DIABETES MELLITUS POORLY CONTROLLED 09/10/2008 ROSELINE LUIS PHD 276.7 PSEUDOHYPERKALEMIA 09/10/2008 GABBIE MAYORGA APRN 250.02 DIABETES MELLITUS POORLY CONTROLLED 09/10/2008 GABBIE MAYORGA APRN 276.7 PSEUDOHYPERKALEMIA 09/10/2008 ROSELINE LUIS PHD 250.02 DIABETES MELLITUS POORLY CONTROLLED 09/10/2008 ROSELINE LUIS PHD 276.7 PSEUDOHYPERKALEMIA 09/10/2008 YONATHAN RIOS MD 250.02 DIABETES MELLITUS POORLY CONTROLLED 09/10/2008 YONATHAN RIOS MD 276.7 PSEUDOHYPERKALEMIA 09/10/2008 LESLY WEAVER APRN R 250.02 DIABETES MELLITUS POORLY CONTROLLED 09/10/2008 LESLY WEAVER APRN R 276.7 PSEUDOHYPERKALEMIA 09/10/2008 ROSELINE LUIS PHD 250.02 DIABETES MELLITUS POORLY CONTROLLED 09/10/2008 ROSELINE LUIS PHD 276.7 PSEUDOHYPERKALEMIA 09/10/2008 ARIANE RODRIGUEZ APRN R 250.02 DIABETES MELLITUS POORLY CONTROLLED 09/10/2008 ISMAEL RODRIGUEZ APRNINA R 276.7 PSEUDOHYPERKALEMIA 09/10/2008 TESS LUIS PHDWIN D 250.02 DIABETES MELLITUS POORLY CONTROLLED 09/10/2008 TOBY JANE, ROSELINE Thakur 276.7 PSEUDOHYPERKALEMIA 09/10/2008 SP CARR APRN 250.02 DIABETES MELLITUS POORLY CONTROLLED 09/10/2008 SP CARR APRN 276.7 PSEUDOHYPERKALEMIA 09/10/2008 SCHULZ DO, TREVOR K 250.02 DIABETES MELLITUS POORLY CONTROLLED 09/10/2008 SCHULZ DO, TREVOR K 276.7 PSEUDOHYPERKALEMIA 09/10/2008 TOBY JANE, ROSELINE Thakur 250.02 DIABETES MELLITUS POORLY CONTROLLED 09/10/2008 TOBY JANE, ROSELINE Thakur 276.7 PSEUDOHYPERKALEMIA 09/10/2008 YONATHAN RIOS MD 250.02 DIABETES MELLITUS POORLY CONTROLLED 09/10/2008 YONATHAN RIOS MD 276.7 PSEUDOHYPERKALEMIA 09/10/2008 TOBY JANE, ROSELINE Thakur 250.02 DIABETES MELLITUS POORLY CONTROLLED 09/10/2008 TOBY JANE, ROSELINE Thakur 276.7 PSEUDOHYPERKALEMIA 09/10/2008 NADINE HARP MD 250.02 DIABETES MELLITUS POORLY CONTROLLED 09/10/2008 NADINE HARP MD 276.7 PSEUDOHYPERKALEMIA 09/10/2008 NOEMI WASHBURN APRN S 250.02 DIABETES MELLITUS POORLY CONTROLLED 09/10/2008 DIPTI WASHBURN APRNNDA S 276.7 PSEUDOHYPERKALEMIA 09/10/2008 TOBY JANE, ROSELINE Thakur 250.02 DIABETES MELLITUS POORLY CONTROLLED 09/10/2008 ROSELINE LUIS PHD 276.7 PSEUDOHYPERKALEMIA 09/10/2008 JOSE WASHBURN APRNA S 250.02 DIABETES MELLITUS POORLY CONTROLLED 09/10/2008 DIPTI WASHBURN APRNNDA S 276.7 PSEUDOHYPERKALEMIA 09/10/2008 YONATHAN RIOS MD 250.02 DIABETES MELLITUS POORLY CONTROLLED 09/10/2008 YONATHAN RIOS MD 276.7 PSEUDOHYPERKALEMIA 09/10/2008 DIPTI WASHBURN APRNNDA S 250.02 DIABETES MELLITUS POORLY CONTROLLED 09/10/2008 DIPTI WASHBURN APRNNDA S 276.7 PSEUDOHYPERKALEMIA 09/10/2008 DIPTI WASHBURN APRNNDA S 250.02 DIABETES MELLITUS POORLY CONTROLLED 09/10/2008 DIPTI WASHBURN APRNNDA S 276.7 PSEUDOHYPERKALEMIA 09/10/2008 ROSELINE LUIS PHD 250.02 DIABETES MELLITUS POORLY CONTROLLED 09/10/2008 ROSELINE LUIS PHD 276.7 PSEUDOHYPERKALEMIA 09/10/2008 LEXI FRENCH TEACHER, ALYSE M 250.02 DIABETES MELLITUS POORLY CONTROLLED 09/10/2008 LEXI FRENCH TEACHER, ALYSE M 276.7 PSEUDOHYPERKALEMIA 09/10/2008 LEXI FRENCH TEACHER, ALYSE M 250.02 DIABETES MELLITUS POORLY CONTROLLED 09/10/2008 LEXI FRENCH TEACHER, ALYSE M 276.7 PSEUDOHYPERKALEMIA 09/10/2008 JOSE WASHBURN APRNA S 250.02 DIABETES MELLITUS POORLY CONTROLLED 09/10/2008 DIPTI WASHBURN APRNNDA S 276.7 PSEUDOHYPERKALEMIA 09/10/2008 JOSE WASHBURN APRNA S 250.02 DIABETES MELLITUS POORLY CONTROLLED 09/10/2008 JOSE WASHBURN APRNA S 276.7 PSEUDOHYPERKALEMIA 09/10/2008 ROSELINE LUIS PHD 250.02 DIABETES MELLITUS POORLY CONTROLLED 09/10/2008 ROSELINE LUIS PHD 276.7 PSEUDOHYPERKALEMIA 09/10/2008 JOSE WASHBURN APRNA S 250.02 DIABETES MELLITUS POORLY CONTROLLED 09/10/2008 DIPTI WASHBURN APRNNDA S 276.7 PSEUDOHYPERKALEMIA 12/17/2008 Ot 327.23 12/23/2008 ROSELINE LUIS PHD 401.0 MALIGNANT ESSENTIAL HYPERTENSION 12/23/2008 ROSELINE LUIS PHD 401.0 MALIGNANT ESSENTIAL HYPERTENSION 12/23/2008 401.0 MALIGNANT ESSENTIAL HYPERTENSION 12/23/2008 JOSE WASHBURN APRNA S 401.0 MALIGNANT ESSENTIAL HYPERTENSION 12/23/2008 JOSE WASHBURN APRNA S 401.0 MALIGNANT ESSENTIAL HYPERTENSION 12/23/2008 TREVOR SCHULZ DO 401.0 MALIGNANT ESSENTIAL HYPERTENSION 12/23/2008 401.0 MALIGNANT ESSENTIAL HYPERTENSION 12/23/2008 JOSE WASHBURN APRNA S 401.0 MALIGNANT ESSENTIAL HYPERTENSION 12/23/2008 JOSE WASHBURN APRNA S 401.0 MALIGNANT ESSENTIAL HYPERTENSION 12/23/2008 ROSELINE LUIS PHD 401.0 MALIGNANT ESSENTIAL HYPERTENSION 12/23/2008 401.0 MALIGNANT ESSENTIAL HYPERTENSION 12/23/2008 401.0 MALIGNANT ESSENTIAL HYPERTENSION 12/23/2008 401.0 MALIGNANT ESSENTIAL HYPERTENSION 12/23/2008 SCHULZ DO, TREVOR K 401.0 MALIGNANT ESSENTIAL HYPERTENSION 12/23/2008 TOBY JANE, ROSELINE Thakur 401.0 MALIGNANT ESSENTIAL HYPERTENSION 12/23/2008 SCHULZ DO, TREVOR K 401.0 MALIGNANT ESSENTIAL HYPERTENSION 12/23/2008 GABBIE MAYORGA APRN 401.0 MALIGNANT ESSENTIAL HYPERTENSION 12/23/2008 YONATHAN RIOS MD 401.0 MALIGNANT ESSENTIAL HYPERTENSION 12/23/2008 YONATHAN RIOS MD 401.0 MALIGNANT ESSENTIAL HYPERTENSION 12/23/2008 TOBY JANE, ROSELINE Thakur 401.0 MALIGNANT ESSENTIAL HYPERTENSION 12/23/2008 ROSELINE LUIS PHD 401.0 MALIGNANT ESSENTIAL HYPERTENSION 12/23/2008 WU LOZADA NOEMI S 401.0 MALIGNANT ESSENTIAL HYPERTENSION 12/23/2008 ROSELINE LUIS PHD 401.0 MALIGNANT ESSENTIAL HYPERTENSION 12/23/2008 YONATHAN RIOS MD 401.0 MALIGNANT ESSENTIAL HYPERTENSION 12/23/2008 WU LOZADA NOEMI S 401.0 MALIGNANT ESSENTIAL HYPERTENSION 12/23/2008 WU LOZADA, NOEMI S 401.0 MALIGNANT ESSENTIAL HYPERTENSION 12/23/2008 GABBIE MAYORGA APRN 401.0 MALIGNANT ESSENTIAL HYPERTENSION 12/23/2008 ROSELINE LUIS PHD 401.0 MALIGNANT ESSENTIAL HYPERTENSION 12/23/2008 ROSELINE LUIS PHD 401.0 MALIGNANT ESSENTIAL HYPERTENSION 12/23/2008 YONATHAN RIOS MD 401.0 MALIGNANT ESSENTIAL HYPERTENSION 12/23/2008 ROSELINE LUIS PHD 401.0 MALIGNANT ESSENTIAL HYPERTENSION 12/23/2008 GABBIE MAYORGA APRN 401.0 MALIGNANT ESSENTIAL HYPERTENSION 12/23/2008 SCHULZ DO, TREVOR K 401.0 MALIGNANT ESSENTIAL HYPERTENSION 12/23/2008 DIPTI WASHBURN APRNNDA S 401.0 MALIGNANT ESSENTIAL HYPERTENSION 12/23/2008 ROSELINE LUIS PHD 401.0 MALIGNANT ESSENTIAL HYPERTENSION 12/23/2008 ROSELINE LUIS PHD 401.0 MALIGNANT ESSENTIAL HYPERTENSION 12/23/2008 GABBIE MAYORGA APRN 401.0 MALIGNANT ESSENTIAL HYPERTENSION 12/23/2008 ROSELINE LUIS PHD 401.0 MALIGNANT ESSENTIAL HYPERTENSION 12/23/2008 YONATHAN RIOS MD 401.0 MALIGNANT ESSENTIAL HYPERTENSION 12/23/2008 OWEN LOZADA, LESLY R 401.0 MALIGNANT ESSENTIAL HYPERTENSION 12/23/2008 TOBY JANE, ROSELINE Thakur 401.0 MALIGNANT ESSENTIAL HYPERTENSION 12/23/2008 JENNIFER LOZADA, ARIANE R 401.0 MALIGNANT ESSENTIAL HYPERTENSION 12/23/2008 TOBY JANE, ROSELINE Thakur 401.0 MALIGNANT ESSENTIAL HYPERTENSION 12/23/2008 LILLY ARROYON, SP [place] 401.0 MALIGNANT ESSENTIAL HYPERTENSION 12/23/2008 JAZZ DO, TREVOR K 401.0 MALIGNANT ESSENTIAL HYPERTENSION 12/23/2008 TOBY JANE, ROSELINE Thakur 401.0 MALIGNANT ESSENTIAL HYPERTENSION 12/23/2008 YONATHAN RIOS MD 401.0 MALIGNANT ESSENTIAL HYPERTENSION 12/23/2008 TOBY JANE, ROSELINE Thakur 401.0 MALIGNANT ESSENTIAL HYPERTENSION 12/23/2008 LOYD ROBINS, NADINE Baum 401.0 MALIGNANT ESSENTIAL HYPERTENSION 12/23/2008 NOEMI WASHBURN APRN S 401.0 MALIGNANT ESSENTIAL HYPERTENSION 12/23/2008 TOBY JANE, ROSELINE Thakur 401.0 MALIGNANT ESSENTIAL HYPERTENSION 12/23/2008 JOSE WASHBURN APRNA S 401.0 MALIGNANT ESSENTIAL HYPERTENSION 12/23/2008 YONATHAN RIOS MD 401.0 MALIGNANT ESSENTIAL HYPERTENSION 12/23/2008 DIPTI WASHBURN APRNNDA S 401.0 MALIGNANT ESSENTIAL HYPERTENSION 12/23/2008 DIPTI WASHBURN APRNNDA S 401.0 MALIGNANT ESSENTIAL HYPERTENSION 12/23/2008 ROSELINE LUIS PHD 401.0 MALIGNANT ESSENTIAL HYPERTENSION 12/23/2008 LEXI FRENCH TEACHER, ALYSE M 401.0 MALIGNANT ESSENTIAL HYPERTENSION 12/23/2008 LEXI FRENCH TEACHER, ALYSE M 401.0 MALIGNANT ESSENTIAL HYPERTENSION 12/23/2008 DIPTI WASHBURN APRNNDA S 401.0 MALIGNANT ESSENTIAL HYPERTENSION 12/23/2008 WU LOZADA NOEMI S 401.0 MALIGNANT ESSENTIAL HYPERTENSION 12/23/2008 ROSELINE LUIS PHD 401.0 MALIGNANT ESSENTIAL HYPERTENSION 12/23/2008 DIPTI WASHBURN APRNNDA S 401.0 MALIGNANT ESSENTIAL HYPERTENSION 01/14/2009 ROSELINE LUIS PHD 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 01/14/2009 ROSELINE LUIS PHD 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 01/14/2009 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 01/14/2009 WU CHAIR, NOEMI S 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 01/14/2009 WU CHAIR, NOEMI S 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 01/14/2009 SCHULZ DO TREVOR K 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 01/14/2009 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 01/14/2009 WU CHAIR, NOEMI S 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 01/14/2009 WU CHAIR, NOEMI S 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 01/14/2009 ROSELINE LUIS PHD 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 01/14/2009 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 01/14/2009 401.9 COMBINED SYSTOLIC AND DIASTOLIC ELEVATION 01/14/2009 401.9 COMBINED SYSTOLIC AND DIASTOLIC ELEVATION 01/14/2009 SCHULZ DO TREVOR K 401.9 COMBINED SYSTOLIC AND DIASTOLIC ELEVATION 01/14/2009 ROSELINE LUIS PHD 401.9 COMBINED SYSTOLIC AND DIASTOLIC ELEVATION 01/14/2009 SCHULZ DO, TREVOR K 401.9 COMBINED SYSTOLIC AND DIASTOLIC ELEVATION 01/14/2009 GABBIE MAYORGA APRN 401.9 COMBINED SYSTOLIC AND DIASTOLIC ELEVATION 01/14/2009 YONATHAN RIOS MD 401.9 COMBINED SYSTOLIC AND DIASTOLIC ELEVATION 01/14/2009 YONATHAN RIOS MD 401.9 COMBINED SYSTOLIC AND DIASTOLIC ELEVATION 01/14/2009 ROSELINE LUIS PHD 401.9 COMBINED SYSTOLIC AND DIASTOLIC ELEVATION 01/14/2009 ROSELINE LUIS PHD 401.9 COMBINED SYSTOLIC AND DIASTOLIC ELEVATION 01/14/2009 WU LOZADA, NOEMI S 401.9 COMBINED SYSTOLIC AND DIASTOLIC ELEVATION 01/14/2009 ROSELINE LUIS PHD 401.9 COMBINED SYSTOLIC AND DIASTOLIC ELEVATION 01/14/2009 YONATHAN RIOS MD 401.9 COMBINED SYSTOLIC AND DIASTOLIC ELEVATION 01/14/2009 WU LOZADA, NOEMI S 401.9 COMBINED SYSTOLIC AND DIASTOLIC ELEVATION 01/14/2009 WU LOZADA, NOEMI S 401.9 COMBINED SYSTOLIC AND DIASTOLIC ELEVATION 01/14/2009 GABBIE MAYORGA APRN 401.9 COMBINED SYSTOLIC AND DIASTOLIC ELEVATION 01/14/2009 ROSELINE LUIS PHD 401.9 COMBINED SYSTOLIC AND DIASTOLIC ELEVATION 01/14/2009 ROSELINE LUIS PHD 401.9 COMBINED SYSTOLIC AND DIASTOLIC ELEVATION 01/14/2009 YONATHAN RIOS MD 401.9 COMBINED SYSTOLIC AND DIASTOLIC ELEVATION 01/14/2009 TOBY PHD, ROSELINE Thakur 401.9 COMBINED SYSTOLIC AND DIASTOLIC ELEVATION 01/14/2009 TIERRA CHAIR, GABBIE GRAF 401.9 COMBINED SYSTOLIC AND DIASTOLIC ELEVATION 01/14/2009 SCHULZ TREVOR STROUD K 401.9 COMBINED SYSTOLIC AND DIASTOLIC ELEVATION 01/14/2009 WU CHAIR, NOEMI S 401.9 COMBINED SYSTOLIC AND DIASTOLIC ELEVATION 01/14/2009 TOBY PHD, ROSELINE D 401.9 COMBINED SYSTOLIC AND DIASTOLIC ELEVATION 01/14/2009 TOBY PHD, ROSELINE D 401.9 COMBINED SYSTOLIC AND DIASTOLIC ELEVATION 01/14/2009 TIERRA CHAIR, GABBIE GRAF 401.9 COMBINED SYSTOLIC AND DIASTOLIC ELEVATION 01/14/2009 TOBY PHD, ROSELINE Thakur 401.9 COMBINED SYSTOLIC AND DIASTOLIC ELEVATION 01/14/2009 YONATHAN RIOS MD 401.9 COMBINED SYSTOLIC AND DIASTOLIC ELEVATION 01/14/2009 OWEN CHAIR, LESLY R 401.9 COMBINED SYSTOLIC AND DIASTOLIC ELEVATION 01/14/2009 TOBY PHD, ROSELINE Thakur 401.9 COMBINED SYSTOLIC AND DIASTOLIC ELEVATION 01/14/2009 JENNIFER CHAIR, ARIANE R 401.9 COMBINED SYSTOLIC AND DIASTOLIC ELEVATION 01/14/2009 TOBY PHD, ROSELINE Thakur 401.9 COMBINED SYSTOLIC AND DIASTOLIC ELEVATION 01/14/2009 LILLY CHAIRSP Baum 401.9 COMBINED SYSTOLIC AND DIASTOLIC ELEVATION 01/14/2009 TREVOR SCHULZ DO K 401.9 COMBINED SYSTOLIC AND DIASTOLIC ELEVATION 01/14/2009 TOBY PHD, ROSELINE Thakur 401.9 COMBINED SYSTOLIC AND DIASTOLIC ELEVATION 01/14/2009 YONATHAN RIOS MD 401.9 COMBINED SYSTOLIC AND DIASTOLIC ELEVATION 01/14/2009 TOBY PHD, ROSELINE Thakur 401.9 COMBINED SYSTOLIC AND DIASTOLIC ELEVATION 01/14/2009 NADINE HARP MD 401.9 COMBINED SYSTOLIC AND DIASTOLIC ELEVATION 01/14/2009 WU CHAIR, NOEMI S 401.9 COMBINED SYSTOLIC AND DIASTOLIC ELEVATION 01/14/2009 TOBY , ROSELINE Thakur 401.9 COMBINED SYSTOLIC AND DIASTOLIC ELEVATION 01/14/2009 WU CHAIR, NOEMI S 401.9 COMBINED SYSTOLIC AND DIASTOLIC ELEVATION 01/14/2009 YONATHAN RIOS MD 401.9 COMBINED SYSTOLIC AND DIASTOLIC ELEVATION 01/14/2009 WU CHAIR, NOEMI S 401.9 COMBINED SYSTOLIC AND DIASTOLIC ELEVATION 01/14/2009 WU CHAIR, NOEMI S 401.9 COMBINED SYSTOLIC AND DIASTOLIC ELEVATION 01/14/2009 TOBY JANE, ROSELINE Thakur 401.9 COMBINED SYSTOLIC AND DIASTOLIC ELEVATION 01/14/2009 LEXI LEWIS, ALYSE M 401.9 COMBINED SYSTOLIC AND DIASTOLIC ELEVATION 01/14/2009 LEXI FRENCH TEACHER, ALYSE M 401.9 COMBINED SYSTOLIC AND DIASTOLIC ELEVATION 01/14/2009 JOSE WASHBURN APRNA S 401.9 COMBINED SYSTOLIC AND DIASTOLIC ELEVATION 01/14/2009 JOSE WASHBURN APRNA S 401.9 COMBINED SYSTOLIC AND DIASTOLIC ELEVATION 01/14/2009 ROSELINE LUIS PHD 401.9 COMBINED SYSTOLIC AND DIASTOLIC ELEVATION 01/14/2009 JOSE WASHBURN APRNA S 401.9 COMBINED SYSTOLIC AND DIASTOLIC ELEVATION 01/20/2009 ROSEILNE LUIS PHD 276.50 Volume Depletion Unspecified 01/20/2009 ROSELINE LUIS PHD 276.50 Volume Depletion Unspecified 01/20/2009 276.50 Volume Depletion Unspecified 01/20/2009 NOEMI WASHBURN APRN S 276.50 Volume Depletion Unspecified 01/20/2009 JOSE WASHBURN APRNA S 276.50 Volume Depletion Unspecified 01/20/2009 SCHULZ DO, TREVOR K 276.50 Volume Depletion Unspecified 01/20/2009 276.50 Volume Depletion Unspecified 01/20/2009 JOSE WASHBURN APRNA S 276.50 Volume Depletion Unspecified 01/20/2009 JOSE WASHBURN APRNA S 276.50 Volume Depletion Unspecified 01/20/2009 ROSELINE LUIS PHD 276.50 Volume Depletion Unspecified 01/20/2009 276.50 Volume Depletion Unspecified 01/20/2009 276.50 Volume Depletion Unspecified 01/20/2009 276.50 Volume Depletion Unspecified 01/20/2009 SCHULZ DO, TREVOR K 276.50 Volume Depletion Unspecified 01/20/2009 ROSELINE LUIS PHD 276.50 Volume Depletion Unspecified 01/20/2009 SCHULZ DO, TREVOR K 276.50 Volume Depletion Unspecified 01/20/2009 GABBIE MAYORGA APRN HOMAR 276.50 Volume Depletion Unspecified 01/20/2009 YONATHAN RIOS MD 276.50 Volume Depletion Unspecified 01/20/2009 YONATHAN RIOS MD 276.50 Volume Depletion Unspecified 01/20/2009 ROSELINE LUIS PHD 276.50 Volume Depletion Unspecified 01/20/2009 TOBY JANE, ROSELINE Thakur 276.50 Volume Depletion Unspecified 01/20/2009 NOEMI WASHBURN APRN S 276.50 Volume Depletion Unspecified 01/20/2009 TOBY JANE, ROSELINE Thakur 276.50 Volume Depletion Unspecified 01/20/2009 YONATHAN RIOS MD 276.50 Volume Depletion Unspecified 01/20/2009 NOEMI WASHBURN APRN S 276.50 Volume Depletion Unspecified 01/20/2009 NOEMI WASHBURN APRN S 276.50 Volume Depletion Unspecified 01/20/2009 GABBIE MAYORGA APRN HOMAR 276.50 Volume Depletion Unspecified 01/20/2009 TOBY JANE, ROSELINE Thakur 276.50 Volume Depletion Unspecified 01/20/2009 TOBY JANE, ROSELINE Thakur 276.50 Volume Depletion Unspecified 01/20/2009 YONATHAN RIOS MD 276.50 Volume Depletion Unspecified 01/20/2009 TOBY JANE, ROSELINE Thakur 276.50 Volume Depletion Unspecified 01/20/2009 GABBIE MAYORGA APRN 276.50 Volume Depletion Unspecified 01/20/2009 JAZZ DO TREVOR K 276.50 Volume Depletion Unspecified 01/20/2009 NOEMI WASHBURN APRN S 276.50 Volume Depletion Unspecified 01/20/2009 TOBY JANE, ROSELINE Thakur 276.50 Volume Depletion Unspecified 01/20/2009 TOBY JANE, ROSELINE Thakur 276.50 Volume Depletion Unspecified 01/20/2009 GABBIE MAYORGA APRN 276.50 Volume Depletion Unspecified 01/20/2009 TOBY JANE, ROSELINE Thakur 276.50 Volume Depletion Unspecified 01/20/2009 YONATHAN RIOS MD 276.50 Volume Depletion Unspecified 01/20/2009 OWEN CHAIR, LESLY R 276.50 Volume Depletion Unspecified 01/20/2009 TOBY JANE, ROSELINE Thakur 276.50 Volume Depletion Unspecified 01/20/2009 JENNIFER CHAIR, ARIANE R 276.50 Volume Depletion Unspecified 01/20/2009 TOBY JANE, ROSELINE Thakur 276.50 Volume Depletion Unspecified 01/20/2009 LILLY CHAIR, SP [place] 276.50 Volume Depletion Unspecified 01/20/2009 SCHULZ DO TREVOR K 276.50 Volume Depletion Unspecified 01/20/2009 TOBY JANE, ROSELINE Thakur 276.50 Volume Depletion Unspecified 01/20/2009 YONATHAN RIOS MD 276.50 Volume Depletion Unspecified 01/20/2009 TOBY PHD, ROSELINE Thakur 276.50 Volume Depletion Unspecified 01/20/2009 NADINE HARP MD 276.50 Volume Depletion Unspecified 01/20/2009 WU LOZADA, NOEMI S 276.50 Volume Depletion Unspecified 01/20/2009 TOBY JANE, ROSELINE Thakur 276.50 Volume Depletion Unspecified 01/20/2009 WU LOZADA, NOEMI S 276.50 Volume Depletion Unspecified 01/20/2009 YONATHAN RIOS MD 276.50 Volume Depletion Unspecified 01/20/2009 WU LOZADA, NOEMI S 276.50 Volume Depletion Unspecified 01/20/2009 WU LOZADA, NOEMI S 276.50 Volume Depletion Unspecified 01/20/2009 TOBY PHD, ROSELINE Thakur 276.50 Volume Depletion Unspecified 01/20/2009 LEXI FRENCH TEACHER, ALYSE M 276.50 Volume Depletion Unspecified 01/20/2009 LEXI FRENCH TEACHER, ALYSE M 276.50 Volume Depletion Unspecified 01/20/2009 WU LOZADA, NOEMI S 276.50 Volume Depletion Unspecified 01/20/2009 WU LOZADA, NOEMI S 276.50 Volume Depletion Unspecified 01/20/2009 TOBY JANE, ROSELINE Thakur 276.50 Volume Depletion Unspecified 01/20/2009 WU LOZADA, NOEMI S 276.50 Volume Depletion Unspecified 02/02/2009 ROSELINE LUIS PHD 008.5 BACTERIAL ENTERITIS UNSPECIFIED 02/02/2009 TOBY JANE, ROSELINE Thakur 008.5 BACTERIAL ENTERITIS UNSPECIFIED 02/02/2009 008.5 BACTERIAL ENTERITIS UNSPECIFIED 02/02/2009 DIPTI WASHBURN APRNNDA S 008.5 BACTERIAL ENTERITIS UNSPECIFIED 02/02/2009 DIPTI WASHBURN APRNNDA S 008.5 BACTERIAL ENTERITIS UNSPECIFIED 02/02/2009 TREVOR SCHULZ DO 008.5 BACTERIAL ENTERITIS UNSPECIFIED 02/02/2009 008.5 BACTERIAL ENTERITIS UNSPECIFIED 02/02/2009 WU LOZADA NOEMI S 008.5 BACTERIAL ENTERITIS UNSPECIFIED 02/02/2009 DIPTI WASHBURN APRNNDA S 008.5 BACTERIAL ENTERITIS UNSPECIFIED 02/02/2009 TOBY JANE, ROSELINE Thakur 008.5 BACTERIAL ENTERITIS UNSPECIFIED 02/02/2009 008.5 BACTERIAL ENTERITIS UNSPECIFIED 02/02/2009 008.5 BACTERIAL ENTERITIS UNSPECIFIED 02/02/2009 008.5 BACTERIAL ENTERITIS UNSPECIFIED 02/02/2009 SCHULZ DO, TREVOR K 008.5 BACTERIAL ENTERITIS UNSPECIFIED 02/02/2009 TOBY JANE, ROSELINE Thakur 008.5 BACTERIAL ENTERITIS UNSPECIFIED 02/02/2009 SCHULZ DO, TREVOR K 008.5 BACTERIAL ENTERITIS UNSPECIFIED 02/02/2009 GABBIE MAYORGA APRN 008.5 BACTERIAL ENTERITIS UNSPECIFIED 02/02/2009 YONATHAN RIOS MD 008.5 BACTERIAL ENTERITIS UNSPECIFIED 02/02/2009 YONATHAN RIOS MD 008.5 BACTERIAL ENTERITIS UNSPECIFIED 02/02/2009 ROSELINE LUIS PHD 008.5 BACTERIAL ENTERITIS UNSPECIFIED 02/02/2009 ROSELINE LUIS PHD 008.5 BACTERIAL ENTERITIS UNSPECIFIED 02/02/2009 NOEMI WASHBURN APRN S 008.5 BACTERIAL ENTERITIS UNSPECIFIED 02/02/2009 ROSELINE LUIS PHD 008.5 BACTERIAL ENTERITIS UNSPECIFIED 02/02/2009 YONATHAN RIOS MD 008.5 BACTERIAL ENTERITIS UNSPECIFIED 02/02/2009 JOSE WASHBURN APRNA S 008.5 BACTERIAL ENTERITIS UNSPECIFIED 02/02/2009 DIPTI WASHBURN APRNNDA S 008.5 BACTERIAL ENTERITIS UNSPECIFIED 02/02/2009 GABBIE MAYORGA APRN 008.5 BACTERIAL ENTERITIS UNSPECIFIED 02/02/2009 ROSELINE LUIS PHD 008.5 BACTERIAL ENTERITIS UNSPECIFIED 02/02/2009 ROSELINE LUIS PHD 008.5 BACTERIAL ENTERITIS UNSPECIFIED 02/02/2009 YONATHAN RIOS MD 008.5 BACTERIAL ENTERITIS UNSPECIFIED 02/02/2009 ROSELINE LUIS PHD 008.5 BACTERIAL ENTERITIS UNSPECIFIED 02/02/2009 GABBIE MAYORGA APRN 008.5 BACTERIAL ENTERITIS UNSPECIFIED 02/02/2009 SCHULZ DOLURDESA K 008.5 BACTERIAL ENTERITIS UNSPECIFIED 02/02/2009 JOSE WASHBURN APRNA S 008.5 BACTERIAL ENTERITIS UNSPECIFIED 02/02/2009 ROSELINE LUIS PHD 008.5 BACTERIAL ENTERITIS UNSPECIFIED 02/02/2009 TOBY PHD, ROSELINE Thakur 008.5 BACTERIAL ENTERITIS UNSPECIFIED 02/02/2009 TIERRA LOZADA, GABBIE GRAF 008.5 BACTERIAL ENTERITIS UNSPECIFIED 02/02/2009 TOBY PHD, ROSELINE Thakur 008.5 BACTERIAL ENTERITIS UNSPECIFIED 02/02/2009 YONATHAN RIOS MD 008.5 BACTERIAL ENTERITIS UNSPECIFIED 02/02/2009 OWEN LOZADA, LESLY R 008.5 BACTERIAL ENTERITIS UNSPECIFIED 02/02/2009 TOBY PHD, ROSELINE Thakur 008.5 BACTERIAL ENTERITIS UNSPECIFIED 02/02/2009 JENNIFER ARROYON, ARIANE R 008.5 BACTERIAL ENTERITIS UNSPECIFIED 02/02/2009 TOBY PHD, ROSELINE Thakur 008.5 BACTERIAL ENTERITIS UNSPECIFIED 02/02/2009 SP CARR APRN 008.5 BACTERIAL ENTERITIS UNSPECIFIED 02/02/2009 TREVOR SCHULZ DO 008.5 BACTERIAL ENTERITIS UNSPECIFIED 02/02/2009 TOBY PHD, ROSELINE Thakur 008.5 BACTERIAL ENTERITIS UNSPECIFIED 02/02/2009 YONATHAN RIOS MD 008.5 BACTERIAL ENTERITIS UNSPECIFIED 02/02/2009 TOBY PHD, ROSELINE Thakur 008.5 BACTERIAL ENTERITIS UNSPECIFIED 02/02/2009 LOYD ROBINS, NADINE Baum 008.5 BACTERIAL ENTERITIS UNSPECIFIED 02/02/2009 WU LOZADA, NOEMI S 008.5 BACTERIAL ENTERITIS UNSPECIFIED 02/02/2009 TOBY PHD, ROSELINE Thakur 008.5 BACTERIAL ENTERITIS UNSPECIFIED 02/02/2009 WU LOZADA, NOEMI S 008.5 BACTERIAL ENTERITIS UNSPECIFIED 02/02/2009 YONATHAN RIOS MD 008.5 BACTERIAL ENTERITIS UNSPECIFIED 02/02/2009 WU ARROYON, NOEMI S 008.5 BACTERIAL ENTERITIS UNSPECIFIED 02/02/2009 WU ARROYON, NOEMI S 008.5 BACTERIAL ENTERITIS UNSPECIFIED 02/02/2009 TOBY PHD, ROSELINE Thakur 008.5 BACTERIAL ENTERITIS UNSPECIFIED 02/02/2009 ALYSE LIMA M 008.5 BACTERIAL ENTERITIS UNSPECIFIED 02/02/2009 ALYSE LIMA M 008.5 BACTERIAL ENTERITIS UNSPECIFIED 02/02/2009 WU ARROYON, NOEMI S 008.5 BACTERIAL ENTERITIS UNSPECIFIED 02/02/2009 WU ARROYON, NOEMI S 008.5 BACTERIAL ENTERITIS UNSPECIFIED 02/02/2009 ROSELINE LUIS PHD 008.5 BACTERIAL ENTERITIS UNSPECIFIED 02/02/2009 WU LOZADA, NOEMI S 008.5 BACTERIAL ENTERITIS UNSPECIFIED 02/23/2009 TOBY JANE, ROSELINE Thakur 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 02/23/2009 ROSELINE LUIS PHD 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 02/23/2009 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 02/23/2009 WU CHAIR, NOEMI S 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 02/23/2009 WU CHAIR, NOEMI S 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 02/23/2009 SCHULZ DO, TREVOR K 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 02/23/2009 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 02/23/2009 WU LOZADA, NOEMI S 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 02/23/2009 WU LOZADA, NOEMI S 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 02/23/2009 ROSELINE LUIS PHD 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 02/23/2009 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 02/23/2009 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 02/23/2009 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 02/23/2009 SCHULZ DO, TREVOR K 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 02/23/2009 ROSELINE LUIS PHD 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 02/23/2009 SCHULZ DO, TREVOR K 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 02/23/2009 GABBIE MAYORGA APRN 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 02/23/2009 YONATHAN RIOS MD 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 02/23/2009 YONATHAN RIOS MD 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 02/23/2009 ROSELINE LUIS PHD 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 02/23/2009 ROSELINE LUIS PHD 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 02/23/2009 JOSE WASHBURN APRNA S 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 02/23/2009 ROSELINE LUIS PHD 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 02/23/2009 YONATHAN RIOS MD 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 02/23/2009 WU LOZADA, NOEMI S 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 02/23/2009 DIPTI WASHBURN APRNNDA S 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 02/23/2009 TIERRA LOZADA GABBIE HOMAR 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 02/23/2009 TOBY PHD, ROSELINE Thakur 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 02/23/2009 TOBY JANE, ROSELINE Thakur 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 02/23/2009 YONATHAN RIOS MD 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 02/23/2009 TOBY JANE, ROSELINE Thakur 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 02/23/2009 TIERRA ARROYON, GABBIE HOMAR 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 02/23/2009 SCHULZ DO, TREVOR K 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 02/23/2009 WU CHAIR, NOEMI S 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 02/23/2009 SCHULZ DO, TREVOR K 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 02/23/2009 TOBY JANE, ROSELINE Thakur 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 02/23/2009 YONATHAN RIOS MD 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 02/23/2009 TOBY JANE, ROSELINE Thakur 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 02/23/2009 LOYD ROBINS, NADINE Baum 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 02/23/2009 WU LOZADA, NOEMI S 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 02/23/2009 TOBY JANE, ROSELINE Thakur 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 02/23/2009 WU LOZADA, NOEMI S 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 02/23/2009 YONATHAN RIOS MD 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 02/23/2009 WU LOZADA, NOEMI S 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 02/23/2009 WU LOZADA, NOEMI S 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 02/23/2009 TOBY PHD, ROSELINE Thakur 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 02/23/2009 LEXI FRENCH TEACHER, ALYSE M 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 02/23/2009 LEXI FRENCH TEACHER, ALYSE M 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 02/23/2009 WU ARROYON, NOEMI S 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 02/23/2009 WU ARROYON, NOEMI S 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 02/23/2009 TOBY JANE, ROSELINE Thakur 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 02/23/2009 WU LZOADA, NOEMI S 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 03/05/2009 ROSELINE LUIS PHD V48.5 Pain / Temperature Decrease Neck 03/05/2009 ROSELINE LUIS PHD V48.5 Pain / Temperature Decrease Neck 03/05/2009 V48.5 Pain / Temperature Decrease Neck 03/05/2009 WU LOZADA NOEMI S V48.5 Pain / Temperature Decrease Neck 03/05/2009 WU LOZADA NOEMI S V48.5 Pain / Temperature Decrease Neck 03/05/2009 JAZZ DO TREVOR K V48.5 Pain / Temperature Decrease Neck 03/05/2009 V48.5 Pain / Temperature Decrease Neck 03/05/2009 WU LOZADA NOEMI S V48.5 Pain / Temperature Decrease Neck 03/05/2009 WU LOZADA NOEMI S V48.5 Pain / Temperature Decrease Neck 03/05/2009 ROSELINE LUIS PHD V48.5 Pain / Temperature Decrease Neck 03/05/2009 V48.5 Pain / Temperature Decrease Neck 03/05/2009 V48.5 PAIN / TEMPERATURE DECREASE NECK 03/05/2009 V48.5 PAIN / TEMPERATURE DECREASE NECK 03/05/2009 LURDES SCHULZ DOA K V48.5 PAIN / TEMPERATURE DECREASE NECK 03/05/2009 ROSELINE LUIS PHD V48.5 PAIN / TEMPERATURE DECREASE NECK 03/05/2009 SCHULZ DO TREVOR K V48.5 PAIN / TEMPERATURE DECREASE NECK 03/05/2009 GABBIE MAYORGA APRN V48.5 PAIN / TEMPERATURE DECREASE NECK 03/05/2009 YONATHAN RIOS MD V48.5 PAIN / TEMPERATURE DECREASE NECK 03/05/2009 YONATHAN RIOS MD V48.5 PAIN / TEMPERATURE DECREASE NECK 03/05/2009 TOBY JANE, ROSELINE Thakur V48.5 PAIN / TEMPERATURE DECREASE NECK 03/05/2009 TOBY , ROSELINE Thakur V48.5 PAIN / TEMPERATURE DECREASE NECK 03/05/2009 WU LOZADA, NOEMI S V48.5 PAIN / TEMPERATURE DECREASE NECK 03/05/2009 TOBY , ROSELINE Thakur V48.5 PAIN / TEMPERATURE DECREASE NECK 03/05/2009 YONATHAN RIOS MD V48.5 PAIN / TEMPERATURE DECREASE NECK 03/05/2009 WU ARROYON, NOEMI S V48.5 PAIN / TEMPERATURE DECREASE NECK 03/05/2009 WU LOZADA, NOEMI S V48.5 PAIN / TEMPERATURE DECREASE NECK 03/05/2009 TIERRA CHAIR, GABBIE DE [place] V48.5 PAIN / TEMPERATURE DECREASE NECK 03/05/2009 TOBY JANE, ROSELINE Thakur V48.5 PAIN / TEMPERATURE DECREASE NECK 03/05/2009 TOBY JANE, ROSELINE Thakur V48.5 PAIN / TEMPERATURE DECREASE NECK 03/05/2009 YONATHAN RIOS MD V48.5 PAIN / TEMPERATURE DECREASE NECK 03/05/2009 TOBY AJNE, ROSELINE Thakur V48.5 PAIN / TEMPERATURE DECREASE NECK 03/05/2009 TIERRA LOZADA, GABBIE HOMAR V48.5 PAIN / TEMPERATURE DECREASE NECK 03/05/2009 JAZZ STROUD TREVOR K V48.5 PAIN / TEMPERATURE DECREASE NECK 03/05/2009 WU LOZADA, NOEMI S V48.5 PAIN / TEMPERATURE DECREASE NECK 03/05/2009 TOBY , ROSELINE Thakur V48.5 PAIN / TEMPERATURE DECREASE NECK 03/05/2009 TOBY , ROSELINE Thakur V48.5 PAIN / TEMPERATURE DECREASE NECK 03/05/2009 TIERRA LOZADA, GABBIE DE LA OH V48.5 PAIN / TEMPERATURE DECREASE NECK 03/05/2009 TOBY JANE, ROSELINE Thakur V48.5 PAIN / TEMPERATURE DECREASE NECK 03/05/2009 YONATHAN RIOS MD V48.5 PAIN / TEMPERATURE DECREASE NECK 03/05/2009 LESLY WEAVER APRN R V48.5 PAIN / TEMPERATURE DECREASE NECK 03/05/2009 TOBY , ROSELINE Thakur V48.5 PAIN / TEMPERATURE DECREASE NECK 03/05/2009 ARIANE RODRIGUEZ APRN R V48.5 PAIN / TEMPERATURE DECREASE NECK 03/05/2009 TOBY PHD, ROSELINE Thakur V48.5 PAIN / TEMPERATURE DECREASE NECK 03/05/2009 SP CARR APRN V48.5 PAIN / TEMPERATURE DECREASE NECK 03/05/2009 JAZZ STROUD TREVOR Genaro V48.5 PAIN / TEMPERATURE DECREASE NECK 03/05/2009 TOBY PHD, ROSELINE Thakur V48.5 PAIN / TEMPERATURE DECREASE NECK 03/05/2009 BLANCA ROBINS, YONATHAN V48.5 PAIN / TEMPERATURE DECREASE NECK 03/05/2009 TOBY PHD, ROSELINE Thakur V48.5 PAIN / TEMPERATURE DECREASE NECK 03/05/2009 LOYD ROBINS, NADINE Baum V48.5 PAIN / TEMPERATURE DECREASE NECK 03/05/2009 WU LOZADA, NOEMI S V48.5 PAIN / TEMPERATURE DECREASE NECK 03/05/2009 TOBY PHD, ROSELINE Thakur V48.5 PAIN / TEMPERATURE DECREASE NECK 03/05/2009 WU LOZADA, NOEMI S V48.5 PAIN / TEMPERATURE DECREASE NECK 03/05/2009 YONATHAN RIOS MD V48.5 PAIN / TEMPERATURE DECREASE NECK 03/05/2009 WU LOZADA, NOEMI S V48.5 PAIN / TEMPERATURE DECREASE NECK 03/05/2009 WU LOZADA, NOEMI S V48.5 PAIN / TEMPERATURE DECREASE NECK 03/05/2009 TOBY JANE, ROSELINE Thakur V48.5 PAIN / TEMPERATURE DECREASE NECK 03/05/2009 LEXI LEWIS, ALYSE M V48.5 PAIN / TEMPERATURE DECREASE NECK 03/05/2009 LEXI LEWIS, ALYSE M V48.5 PAIN / TEMPERATURE DECREASE NECK 03/05/2009 WU LOZADA, NOEMI S V48.5 PAIN / TEMPERATURE DECREASE NECK 03/05/2009 WU LOZADA, NOEMI S V48.5 PAIN / TEMPERATURE DECREASE NECK 03/05/2009 TOBY JANE, ROSELINE Thakur V48.5 PAIN / TEMPERATURE DECREASE NECK 03/05/2009 WU LOZADA, NOEMI S V48.5 PAIN / TEMPERATURE DECREASE NECK 03/05/2009 Ot 250.00 03/05/2009 Ot 401.9 03/05/2009 Ot 715.90 03/05/2009 Ot 723.4 03/05/2009 Ot 780.39 03/05/2009 Ot 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 04/27/2009 TOBY PHD, ROSELINE Thakur 599.0 Urinary Tract Infection 04/27/2009 TOBY PHD, ROSELINE Thakur 599.0 Urinary Tract Infection 04/27/2009 599.0 Urinary Tract Infection 04/27/2009 WU CHAIR, NOEMI S 599.0 Urinary Tract Infection 04/27/2009 WU CHAIR, NOEMI S 599.0 Urinary Tract Infection 04/27/2009 SCHULZ DO, TREVOR K 599.0 Urinary Tract Infection 04/27/2009 599.0 Urinary Tract Infection 04/27/2009 WUBREANNE LOZADA, NOEMI S 599.0 Urinary Tract Infection 04/27/2009 WU LOZADA, NOEMI S 599.0 Urinary Tract Infection 04/27/2009 TOBY PHD, ROSELINE Thakur 599.0 Urinary Tract Infection 04/27/2009 599.0 Urinary Tract Infection 04/27/2009 599.0 Urinary Tract Infection 04/27/2009 599.0 Urinary Tract Infection 04/27/2009 JAZZ DO TREVOR K 599.0 Urinary Tract Infection 04/27/2009 TOBY PHD, ROSELINE Thakur 599.0 Urinary Tract Infection 04/27/2009 SCHULZ DO TREVOR K 599.0 Urinary Tract Infection 04/27/2009 GABBIE MAYORGA APRN 599.0 Urinary Tract Infection 04/27/2009 YONATHAN RIOS MD 599.0 Urinary Tract Infection 04/27/2009 YONATHAN RIOS MD 599.0 Urinary Tract Infection 04/27/2009 TOBY PHD, ROSELINE Thakur 599.0 Urinary Tract Infection 04/27/2009 TOBY PHD, ROSELINE Thakur 599.0 Urinary Tract Infection 04/27/2009 WU LOZADA, NOEMI S 599.0 Urinary Tract Infection 04/27/2009 TOBY PHD, ROSELINE Thakur 599.0 Urinary Tract Infection 04/27/2009 YONATHAN RIOS MD 599.0 Urinary Tract Infection 04/27/2009 WU LOZADA, NOEMI S 599.0 Urinary Tract Infection 04/27/2009 WU LOZADA, NOEMI S 599.0 Urinary Tract Infection 04/27/2009 GABBIE MAYORGA APRN 599.0 Urinary Tract Infection 04/27/2009 TOBY PHD, ROSELINE Thakur 599.0 Urinary Tract Infection 04/27/2009 TOBY PHD, ROSELINE Thakur 599.0 Urinary Tract Infection 04/27/2009 YONATHAN RIOS MD 599.0 Urinary Tract Infection 04/27/2009 TOBY PHD, ROSELINE Thakur 599.0 Urinary Tract Infection 04/27/2009 TIERRA LOZADA, GABBIE GRAF 599.0 Urinary Tract Infection 04/27/2009 TREVOR SCHULZ DO K 599.0 Urinary Tract Infection 04/27/2009 WU LOZADA, NOEMI S 599.0 Urinary Tract Infection 04/27/2009 TOBY PHD, ROSELINE Thakur 599.0 Urinary Tract Infection 04/27/2009 TOBY PHD, ROSELINE Thakur 599.0 Urinary Tract Infection 04/27/2009 TIERRA LOZADA, GABBIE GRAF 599.0 Urinary Tract Infection 04/27/2009 TOBY PHD, ROSELINE Thakur 599.0 Urinary Tract Infection 04/27/2009 YONATHAN RIOS MD 599.0 Urinary Tract Infection 04/27/2009 LESLY WEAVER APRN R 599.0 Urinary Tract Infection 04/27/2009 TOBY PHD, ROSELINE Thakur 599.0 Urinary Tract Infection 04/27/2009 ARIANE RODRIGUEZ APRN R 599.0 Urinary Tract Infection 04/27/2009 TOBY PHD, ROSELINE Thakur 599.0 Urinary Tract Infection 04/27/2009 SP CARR APRN 599.0 Urinary Tract Infection 04/27/2009 TREVOR SCHULZ DO K 599.0 Urinary Tract Infection 04/27/2009 TOBY PHD, ROSELINE Thakur 599.0 Urinary Tract Infection 04/27/2009 YONATHAN RIOS MD 599.0 Urinary Tract Infection 04/27/2009 TOBY PHD, ROSELINE Thakur 599.0 Urinary Tract Infection 04/27/2009 NADINE HARP MD 599.0 Urinary Tract Infection 04/27/2009 NOEMI WASHBURN APRN S 599.0 Urinary Tract Infection 04/27/2009 TOBY PHD, ROSELINE Thakur 599.0 Urinary Tract Infection 04/27/2009 JOSE WASHBURN APRNA S 599.0 Urinary Tract Infection 04/27/2009 YONATHAN RIOS MD 599.0 Urinary Tract Infection 04/27/2009 WU CHAIR, NOEMI S 599.0 Urinary Tract Infection 04/27/2009 WU CHAIR, NOEMI S 599.0 Urinary Tract Infection 04/27/2009 TOBY PHD, ROSELINE Thakur 599.0 Urinary Tract Infection 04/27/2009 LEXI FRENCH TEACHER, ALYSE M 599.0 Urinary Tract Infection 04/27/2009 LEXI FRENCH TEACHER, ALYSE M 599.0 Urinary Tract Infection 04/27/2009 WU CHAIR, NOEMI S 599.0 Urinary Tract Infection 04/27/2009 WU CHAIR, NOEMI S 599.0 Urinary Tract Infection 04/27/2009 TOBY PHD, ROSELINE Thakur 599.0 Urinary Tract Infection 04/27/2009 WU CHAIR, NOEMI S 599.0 Urinary Tract Infection 05/06/2009 TOBY JANE, ROSELINE Thakur 288.61 LYMPHOCYTOSIS 05/06/2009 TOBY PHD, ROSELINE Thakur 604.90 Epididymitis 05/06/2009 TOBY JANE, ROSELINE Thakur 288.61 LYMPHOCYTOSIS 05/06/2009 TOBY JANE, ROSELINE Thakur 604.90 Epididymitis 05/06/2009 288.61 LYMPHOCYTOSIS 05/06/2009 604.90 Epididymitis 05/06/2009 WU CHAIR, NOEMI S 288.61 LYMPHOCYTOSIS 05/06/2009 WU CHAIR, NOEMI S 604.90 Epididymitis 05/06/2009 WU CHAIR, NOEMI S 288.61 LYMPHOCYTOSIS 05/06/2009 WU CHAIR, NOEMI S 604.90 Epididymitis 05/06/2009 SCHULZ DO, TREVOR K 288.61 LYMPHOCYTOSIS 05/06/2009 SCHULZ DO, TREVOR K 604.90 Epididymitis 05/06/2009 288.61 LYMPHOCYTOSIS 05/06/2009 604.90 Epididymitis 05/06/2009 WU CHAIR, NOEMI S 288.61 LYMPHOCYTOSIS 05/06/2009 WU CHAIR, NOEMI S 604.90 Epididymitis 05/06/2009 WU CHAIR, NOEMI S 288.61 LYMPHOCYTOSIS 05/06/2009 WU CHAIR, NOEMI S 604.90 Epididymitis 05/06/2009 TOBY JANE, ROSELINE Thakur 288.61 LYMPHOCYTOSIS 05/06/2009 TOBY PHD, ROSELINE Thakur 604.90 Epididymitis 05/06/2009 288.61 LYMPHOCYTOSIS 05/06/2009 604.90 Epididymitis 05/06/2009 288.61 LYMPHOCYTOSIS 05/06/2009 604.90 Epididymitis 05/06/2009 288.61 LYMPHOCYTOSIS 05/06/2009 604.90 Epididymitis 05/06/2009 SCHULZ DO TREVOR K 288.61 LYMPHOCYTOSIS 05/06/2009 SCHULZ DO TREVOR K 604.90 Epididymitis 05/06/2009 TOBY PHD, ROSELINE Thakur 288.61 LYMPHOCYTOSIS 05/06/2009 TOBY PHD, ROSELINE hTakur 604.90 Epididymitis 05/06/2009 SCHULZ DO TREVOR K 288.61 LYMPHOCYTOSIS 05/06/2009 SCHULZ TREVOR K 604.90 Epididymitis 05/06/2009 TIERRA LOZADA, GABBIE GRAF 288.61 LYMPHOCYTOSIS 05/06/2009 TIERRA OLZADA, GABBIE GRAF 604.90 Epididymitis 05/06/2009 YONATHAN RIOS MD 288.61 LYMPHOCYTOSIS 05/06/2009 YONATHAN RIOS MD 604.90 Epididymitis 05/06/2009 YONATHAN RIOS MD 288.61 LYMPHOCYTOSIS 05/06/2009 YONATHAN RIOS MD 604.90 Epididymitis 05/06/2009 TOBY JANE, ROSELINE Thakur 288.61 LYMPHOCYTOSIS 05/06/2009 TOBY JANE, ROSELINE Thakur 604.90 Epididymitis 05/06/2009 TOBY JANE, ROSELINE Thakur 288.61 LYMPHOCYTOSIS 05/06/2009 TOBY PHD, ROSELINE Thakur 604.90 Epididymitis 05/06/2009 WU LOZADA NOEMI S 288.61 LYMPHOCYTOSIS 05/06/2009 WU LOZADA NOEMI S 604.90 Epididymitis 05/06/2009 TOBY PHD, ROSELINE Thakur 288.61 LYMPHOCYTOSIS 05/06/2009 TOBY PHD, ROSELINE Thakur 604.90 Epididymitis 05/06/2009 YONATHAN RIOS MD 288.61 LYMPHOCYTOSIS 05/06/2009 YONATHAN RIOS MD 604.90 Epididymitis 05/06/2009 WU LOZADA, NOEMI S 288.61 LYMPHOCYTOSIS 05/06/2009 WU LOZADA NOEMI S 604.90 Epididymitis 05/06/2009 WU CHAIR, NOEMI S 288.61 LYMPHOCYTOSIS 05/06/2009 WU CHAIR, NOEMI S 604.90 Epididymitis 05/06/2009 MAYORGA CHAIR, GABBIE GRAF 288.61 LYMPHOCYTOSIS 05/06/2009 MAYORGA CHAIR, GABBIE GRAF 604.90 Epididymitis 05/06/2009 TOBY JANE, ROSELINE Thakur 288.61 LYMPHOCYTOSIS 05/06/2009 TOBY PHD, ROSELINE Thakur 604.90 Epididymitis 05/06/2009 TOBY PHD, ROSELINE Thakur 288.61 LYMPHOCYTOSIS 05/06/2009 TOBY PHD, ROSELINE Thakur 604.90 Epididymitis 05/06/2009 YONATHAN RIOS MD 288.61 LYMPHOCYTOSIS 05/06/2009 YONATHAN RIOS MD 604.90 Epididymitis 05/06/2009 TOBY PHD, ROSELINE Thakur 288.61 LYMPHOCYTOSIS 05/06/2009 TOBY JANE, ROSELINE Thakur 604.90 Epididymitis 05/06/2009 TIERRA LOZADA, GABBIE DE LA OH 288.61 LYMPHOCYTOSIS 05/06/2009 TIERRA ARROYON, GABBIE DE [place] OH 604.90 Epididymitis 05/06/2009 SCHULZ DO, TREVOR K 288.61 LYMPHOCYTOSIS 05/06/2009 SCHULZ DO, TREVOR K 604.90 Epididymitis 05/06/2009 WU LOZADA, NOEMI S 288.61 LYMPHOCYTOSIS 05/06/2009 WU LOZADA, NOEMI S 604.90 Epididymitis 05/06/2009 TOBY JANE, ROSELINE Thakur 288.61 LYMPHOCYTOSIS 05/06/2009 TOBY JANE, ROSELINE Thakur 604.90 Epididymitis 05/06/2009 TOBY JANE, ROSELINE Thakur 288.61 LYMPHOCYTOSIS 05/06/2009 TOBY JANE, ROSELINE Thakur 604.90 Epididymitis 05/06/2009 TIERRA LOZADA, GABBIE DE [place] 288.61 LYMPHOCYTOSIS 05/06/2009 TIERRA ARROYON, GABBI[place] 604.90 Epididymitis 05/06/2009 TOBY JANE, ROSELINE Thakur 288.61 LYMPHOCYTOSIS 05/06/2009 TOBY JANE, ROSELINE Thakur 604.90 Epididymitis 05/06/2009 YONATHAN RIOS MD 288.61 LYMPHOCYTOSIS 05/06/2009 YONATHAN RIOS MD 604.90 Epididymitis 05/06/2009 WEAVER CHAIR, LESLY R 288.61 LYMPHOCYTOSIS 05/06/2009 OWEN ARROYON, LESLY R 604.90 Epididymitis 05/06/2009 TOBY JANE, ROSELINE Thakur 288.61 LYMPHOCYTOSIS 05/06/2009 TOBY PHD, ROSELINE Thakur 604.90 Epididymitis 05/06/2009 JENNIFER CHAIR, ARIANE R 288.61 LYMPHOCYTOSIS 05/06/2009 JENNIFER ARROYON, ARIANE R 604.90 Epididymitis 05/06/2009 TOBY JANE, ROSELINE Thakur 288.61 LYMPHOCYTOSIS 05/06/2009 TOBY PHD, ROSELINE Thakur 604.90 Epididymitis 05/06/2009 LILLY CHAIR, SP T 288.61 LYMPHOCYTOSIS 05/06/2009 LILLY ARROYON, SP T 604.90 Epididymitis 05/06/2009 SCHULZ DO, TREVOR K 288.61 LYMPHOCYTOSIS 05/06/2009 SCHULZ DO, TREVOR K 604.90 Epididymitis 05/06/2009 TOBY JANE, ROSELINE Thakur 288.61 LYMPHOCYTOSIS 05/06/2009 TOBY JANE, ROSELINE Thakur 604.90 Epididymitis 05/06/2009 YONATHAN RIOS MD 288.61 LYMPHOCYTOSIS 05/06/2009 YONATHAN RIOS MD 604.90 Epididymitis 05/06/2009 TOBY JANE, ROSELINE Thakur 288.61 LYMPHOCYTOSIS 05/06/2009 TOBY JANE, ROSELINE Thakur 604.90 Epididymitis 05/06/2009 LOYD ROBINS, NADINE N 288.61 LYMPHOCYTOSIS 05/06/2009 LOYD ROBINS, NADINE N 604.90 Epididymitis 05/06/2009 WU LOZADA, NOEMI S 288.61 LYMPHOCYTOSIS 05/06/2009 WU LOZADA, NOEMI S 604.90 Epididymitis 05/06/2009 TOBY JANE, ROSELINE Thakur 288.61 LYMPHOCYTOSIS 05/06/2009 TOBY JANE, ROSELINE Thakur 604.90 Epididymitis 05/06/2009 WU LZOADA, NOEMI S 288.61 LYMPHOCYTOSIS 05/06/2009 WU LOZADA, NOEMI S 604.90 Epididymitis 05/06/2009 YONATHAN RIOS MD 288.61 LYMPHOCYTOSIS 05/06/2009 YONATHAN RIOS MD 604.90 Epididymitis 05/06/2009 WU LOZADA, NOEMI S 288.61 LYMPHOCYTOSIS 05/06/2009 WU CHAIR, NOEMI S 604.90 Epididymitis 05/06/2009 WU CHAIR, NOEMI S 288.61 LYMPHOCYTOSIS 05/06/2009 WU CHAIR, NOEMI S 604.90 Epididymitis 05/06/2009 TOBY JANE, ROSELINE Thakur 288.61 LYMPHOCYTOSIS 05/06/2009 TOBY JANE, ROSELINE Thakur 604.90 Epididymitis 05/06/2009 LEXI FRENCH TEACHER, ALYSE M 288.61 LYMPHOCYTOSIS 05/06/2009 LEXI FRENCH TEACHER, ALYSE M 604.90 Epididymitis 05/06/2009 LEXI FRENCH TEACHER, ALYSE M 288.61 LYMPHOCYTOSIS 05/06/2009 LEXI FRENCH TEACHER, ALYSE M 604.90 Epididymitis 05/06/2009 WU CHAIR, NOEMI S 288.61 LYMPHOCYTOSIS 05/06/2009 WU CHAIR, NOEMI S 604.90 Epididymitis 05/06/2009 WU CHAIR, NOEMI S 288.61 LYMPHOCYTOSIS 05/06/2009 WU CHAIR, NOEMI S 604.90 Epididymitis 05/06/2009 TOBY JANE, ROSELINE Thakur 288.61 LYMPHOCYTOSIS 05/06/2009 TOBY JANE, ROSELINE Thakur 604.90 Epididymitis 05/06/2009 WU ARROYON, NOEMI S 288.61 LYMPHOCYTOSIS 05/06/2009 WU LOZADA, NOEMI S 604.90 Epididymitis 05/08/2009 ROSELINE LUIS PHD 300.11 Conversion Disorder 05/08/2009 ROSELINE LUIS PHD 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 05/08/2009 ROSELINE LUIS PHD 300.11 Conversion Disorder 05/08/2009 ROSELINE LUIS PHD 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 05/08/2009 300.11 Conversion Disorder 05/08/2009 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 05/08/2009 WU LOZADA NOEMI S 300.11 Conversion Disorder 05/08/2009 DIPTI WASHBURN APRNNDA S 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 05/08/2009 DIPTI WASHBURN APRNNDA S 300.11 Conversion Disorder 05/08/2009 WU CHAIR, NOEMI S 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 05/08/2009 SCHULZ DO TREVOR K 300.11 Conversion Disorder 05/08/2009 SCHULZ DO TREVOR K 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 05/08/2009 300.11 Conversion Disorder 05/08/2009 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 05/08/2009 WU LOZADA NOEMI S 300.11 Conversion Disorder 05/08/2009 WU LOZADA, NOEMI S 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 05/08/2009 WU LOZADA, NOEMI S 300.11 Conversion Disorder 05/08/2009 WU LOZADA, NOEMI S 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 05/08/2009 ROSELINE LUIS PHD 300.11 Conversion Disorder 05/08/2009 ROSELINE LUIS PHD 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 05/08/2009 300.11 Conversion Disorder 05/08/2009 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 05/08/2009 300.11 Conversion Disorder 05/08/2009 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 05/08/2009 300.11 Conversion Disorder 05/08/2009 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 05/08/2009 JAZZ STROUD TREVOR K 300.11 Conversion Disorder 05/08/2009 SCHULZ DO TREVOR K 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 05/08/2009 ROSELINE LUIS PHD 300.11 Conversion Disorder 05/08/2009 ROSELINE LUIS PHD 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 05/08/2009 JAZZ STROUD TREVOR K 300.11 Conversion Disorder 05/08/2009 JAZZ STROUD TREVOR K 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 05/08/2009 GABBIE MAYORGA APRN 300.11 Conversion Disorder 05/08/2009 GABBIE MAYORGA APRN 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 05/08/2009 YONATHAN RIOS MD 300.11 Conversion Disorder 05/08/2009 YONATHAN RIOS MD 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 05/08/2009 YONATHAN RIOS MD 300.11 Conversion Disorder 05/08/2009 YONATHAN RIOS MD 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 05/08/2009 ROSELINE LUIS PHD 300.11 Conversion Disorder 05/08/2009 ROSELINE LUIS PHD 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 05/08/2009 ROSELINE LUIS PHD 300.11 Conversion Disorder 05/08/2009 ROSELINE LUIS PHD 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 05/08/2009 WU LOZADA, NOEMI S 300.11 Conversion Disorder 05/08/2009 WU LOZADA, NOEMI S 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 05/08/2009 ROSELINE LUIS PHD 300.11 Conversion Disorder 05/08/2009 ROSELINE LUIS PHD 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 05/08/2009 YONATHAN RIOS MD 300.11 Conversion Disorder 05/08/2009 YONATHAN RIOS MD 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 05/08/2009 WU NEVILLE, NOEMI S 300.11 Conversion Disorder 05/08/2009 WU LOZADA, NOEMI S 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 05/08/2009 WU LOZADA, NOEMI S 300.11 Conversion Disorder 05/08/2009 WU LOZADA, NOEMI S 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 05/08/2009 TIERRA LOZADA GABBIE GRAF 300.11 Conversion Disorder 05/08/2009 TIERRA LOZADA GABBIE GRAF 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 05/08/2009 ROSELINE LUIS PHD 300.11 Conversion Disorder 05/08/2009 ROSELINE LUIS PHD 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 05/08/2009 ROSELINE LUIS PHD 300.11 Conversion Disorder 05/08/2009 ROSELINE LUIS PHD 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 05/08/2009 YONATHAN RIOS MD 300.11 Conversion Disorder 05/08/2009 YONATHAN RIOS MD 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 05/08/2009 ROSELINE LUIS PHD 300.11 Conversion Disorder 05/08/2009 ROSELINE LUIS PHD 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 05/08/2009 TIERRA LOZADA GABBIE GRAF 300.11 Conversion Disorder 05/08/2009 TIERRA LOZADA, GABBIE GRAF 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 05/08/2009 SCHULZ DO, TREVOR K 300.11 Conversion Disorder 05/08/2009 SCHULZ DO, TREVOR K 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 05/08/2009 WU LOZADA NOEMI S 300.11 Conversion Disorder 05/08/2009 WU LOZADA, NOEMI S 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 05/08/2009 ROSEILNE LUIS PHD 300.11 Conversion Disorder 05/08/2009 ROSELINE LUIS PHD 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 05/08/2009 ROSELINE LUIS PHD 300.11 Conversion Disorder 05/08/2009 ROSELINE LUIS PHD 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 05/08/2009 TIERRA LOZADA GABBIE GRAF 300.11 Conversion Disorder 05/08/2009 TIERRA LOZADA GABBIE GRAF 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 05/08/2009 ROSELINE LUIS PHD 300.11 Conversion Disorder 05/08/2009 ROSELINE LUIS PHD 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 05/08/2009 YONATHAN RIOS MD 300.11 Conversion Disorder 05/08/2009 YONATHAN RIOS MD 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 05/08/2009 LESLY WEAVER APRN R 300.11 Conversion Disorder 05/08/2009 LESLY WEAVER APRN R 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 05/08/2009 ROSELINE LUIS PHD 300.11 Conversion Disorder 05/08/2009 ROSELINE LUIS PHD 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 05/08/2009 JENNIFER LOZADA ARIANE R 300.11 Conversion Disorder 05/08/2009 JENNIFER LOZADA ARIANE R 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 05/08/2009 ROSELINE LUIS PHD 300.11 Conversion Disorder 05/08/2009 ROSELINE LUIS PHD 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 05/08/2009 LILLY CHAIR, SP T 300.11 Conversion Disorder 05/08/2009 SP CARR APRN T 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 05/08/2009 SCHULZ DOLURDESA K 300.11 Conversion Disorder 05/08/2009 SCHULZ DO, TREVOR K 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 05/08/2009 TOBY JANE, ROSELINE Thakur 300.11 Conversion Disorder 05/08/2009 ROSELINE LUIS PHD 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 05/08/2009 YONATHAN RIOS MD 300.11 Conversion Disorder 05/08/2009 YONATHAN RIOS MD 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 05/08/2009 ROSELINE LUIS PHD 300.11 Conversion Disorder 05/08/2009 ORSELINE LUIS PHD 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 05/08/2009 NADINE HARP MD 300.11 Conversion Disorder 05/08/2009 NADINE HARP MD 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 05/08/2009 DIPTI WASHBURN APRNNDA S 300.11 Conversion Disorder 05/08/2009 DIPTI WASHBURN APRNNDA S 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 05/08/2009 ROSELINE LUIS PHD 300.11 Conversion Disorder 05/08/2009 ROSELINE LUIS PHD 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 05/08/2009 DIPTI WASHBURN APRNNDA S 300.11 Conversion Disorder 05/08/2009 WU LOZADA NOEMI S 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 05/08/2009 YONATHAN RIOS MD 300.11 Conversion Disorder 05/08/2009 YONATHAN RIOS MD 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 05/08/2009 WU LOZADA NOEMI S 300.11 Conversion Disorder 05/08/2009 WU LOZADA NOEMI S 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 05/08/2009 WU LOZADA NOEMI S 300.11 Conversion Disorder 05/08/2009 WU LOZADA, NOEMI S 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 05/08/2009 ROSELINE LUIS PHD 300.11 Conversion Disorder 05/08/2009 ROSELINE LUIS PHD 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 05/08/2009 LEXI FRENCH TEACHER, ALYSE M 300.11 Conversion Disorder 05/08/2009 LEXI FRENCH TEACHER, ALYSE M 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 05/08/2009 LEXI FRENCH TEACHER, ALYSE M 300.11 Conversion Disorder 05/08/2009 LEXI FRENCH TEACHER, ALYSE M 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 05/08/2009 WU CHAIR, NOEMI S 300.11 Conversion Disorder 05/08/2009 WU CHAIR, NOEMI S 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 05/08/2009 WU CHAIR, ONEMI S 300.11 Conversion Disorder 05/08/2009 WU CHAIR, NOEMI S 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 05/08/2009 ROSELINE LUIS PHD 300.11 Conversion Disorder 05/08/2009 ROSELINE LUIS PHD 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 05/08/2009 WU LOZADA, NOEMI S 300.11 Conversion Disorder 05/08/2009 WU LOZADA, NOEMI S 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 05/11/2009 ROSELINE LUIS PHD 280.9 Anemia Hypochromic / Microcytic 05/11/2009 ROSELINE LUIS PHD 780.79 Other Malaise And Fatigue 05/11/2009 ROSELINE LUIS PHD 280.9 Anemia Hypochromic / Microcytic 05/11/2009 ROSELINE LUIS PHD 780.79 Other Malaise And Fatigue 05/11/2009 280.9 Anemia Hypochromic / Microcytic 05/11/2009 780.79 Other Malaise And Fatigue 05/11/2009 WU ARROYON, NOEMI S 280.9 Anemia Hypochromic / Microcytic 05/11/2009 WU LOZADA, NOEMI S 780.79 Other Malaise And Fatigue 05/11/2009 WU CHAIR, NOEMI S 280.9 Anemia Hypochromic / Microcytic 05/11/2009 WU LOZADA, NOEMI S 780.79 Other Malaise And Fatigue 05/11/2009 SCHULZ DO, TREVOR K 280.9 Anemia Hypochromic / Microcytic 05/11/2009 SCHULZ DO, TREVOR K 780.79 Other Malaise And Fatigue 05/11/2009 280.9 Anemia Hypochromic / Microcytic 05/11/2009 780.79 Other Malaise And Fatigue 05/11/2009 WU CHAIR, NOEMI S 280.9 Anemia Hypochromic / Microcytic 05/11/2009 WU CHAIR, NOEMI S 780.79 Other Malaise And Fatigue 05/11/2009 WU CHAIR, NOEMI S 280.9 Anemia Hypochromic / Microcytic 05/11/2009 WU CHAIR, NOEMI S 780.79 Other Malaise And Fatigue 05/11/2009 TOBY JANE, ROSELINE Thakur 280.9 Anemia Hypochromic / Microcytic 05/11/2009 TOBY JANE, ROSELINE Thakur 780.79 Other Malaise And Fatigue 05/11/2009 280.9 Anemia Hypochromic / Microcytic 05/11/2009 780.79 Other Malaise And Fatigue 05/11/2009 280.9 Anemia Hypochromic / Microcytic 05/11/2009 780.79 Other Malaise And Fatigue 05/11/2009 280.9 Anemia Hypochromic / Microcytic 05/11/2009 780.79 Other Malaise And Fatigue 05/11/2009 SCHULZ DO, TREVOR K 280.9 Anemia Hypochromic / Microcytic 05/11/2009 SCHULZ DO, TREVOR K 780.79 Other Malaise And Fatigue 05/11/2009 TOBY JANE, ROSELINE Thakur 280.9 Anemia Hypochromic / Microcytic 05/11/2009 TOBY JANE, ROSELINE Thakur 780.79 Other Malaise And Fatigue 05/11/2009 SCHULZ DO, TREVOR K 280.9 Anemia Hypochromic / Microcytic 05/11/2009 SCHULZ DO, TREVOR K 780.79 Other Malaise And Fatigue 05/11/2009 GABBIE MAYORGA APRN 280.9 Anemia Hypochromic / Microcytic 05/11/2009 GABBIE MAYORGA APRN 780.79 Other Malaise And Fatigue 05/11/2009 YONATHAN RIOS MD 280.9 Anemia Hypochromic / Microcytic 05/11/2009 YONATHAN RIOS MD 780.79 Other Malaise And Fatigue 05/11/2009 YONATHAN RIOS MD 280.9 Anemia Hypochromic / Microcytic 05/11/2009 YONATHAN RIOS MD 780.79 Other Malaise And Fatigue 05/11/2009 TOBY PHD, ROSELINE Thakur 280.9 Anemia Hypochromic / Microcytic 05/11/2009 TOBY JANE, ROSELINE Thakur 780.79 Other Malaise And Fatigue 05/11/2009 TOBY JANE, ROSELINE Thakur 280.9 Anemia Hypochromic / Microcytic 05/11/2009 TOBY PHD, ROSELINE Thakur 780.79 Other Malaise And Fatigue 05/11/2009 WU CHAIR, NOEMI S 280.9 Anemia Hypochromic / Microcytic 05/11/2009 WU LOZADA, NOEMI S 780.79 Other Malaise And Fatigue 05/11/2009 TOBY JANE, ROSELINE Thakur 280.9 Anemia Hypochromic / Microcytic 05/11/2009 TOBY PHD, ROSELINE Thakur 780.79 Other Malaise And Fatigue 05/11/2009 YONATHAN RIOS MD 280.9 Anemia Hypochromic / Microcytic 05/11/2009 YONATHAN RIOS MD 780.79 Other Malaise And Fatigue 05/11/2009 WU CHAIR, NOEMI S 280.9 Anemia Hypochromic / Microcytic 05/11/2009 WU CHAIR, NOEMI S 780.79 Other Malaise And Fatigue 05/11/2009 WU CHAIR, NOEMI S 280.9 Anemia Hypochromic / Microcytic 05/11/2009 WU APRN, NOEMI S 780.79 Other Malaise And Fatigue 05/11/2009 GABBIE MAYORGA APRN 280.9 Anemia Hypochromic / Microcytic 05/11/2009 GABBIE MAYORGA APRN 780.79 Other Malaise And Fatigue 05/11/2009 ROSELINE LUIS PHD 280.9 Anemia Hypochromic / Microcytic 05/11/2009 TOBY PHDROSELINE 780.79 Other Malaise And Fatigue 05/11/2009 ROSELINE LUIS PHD 280.9 Anemia Hypochromic / Microcytic 05/11/2009 TOBY JANE, ROSELINE Thakur 780.79 Other Malaise And Fatigue 05/11/2009 YONATHAN RIOS MD 280.9 Anemia Hypochromic / Microcytic 05/11/2009 YONATHAN RIOS MD 780.79 Other Malaise And Fatigue 05/11/2009 TOBY JANE, ROSELINE Thakur 280.9 Anemia Hypochromic / Microcytic 05/11/2009 ROSELINE LUIS PHD 780.79 Other Malaise And Fatigue 05/11/2009 TIERRA LOZADA GABBIE HOMAR 280.9 Anemia Hypochromic / Microcytic 05/11/2009 TIERRA LOZADA GABBIE HOMAR 780.79 Other Malaise And Fatigue 05/11/2009 SCHULZ DO, TREVOR K 280.9 Anemia Hypochromic / Microcytic 05/11/2009 SCHULZ DO, TREVOR K 780.79 Other Malaise And Fatigue 05/11/2009 WU LOZADA NOEMI S 280.9 Anemia Hypochromic / Microcytic 05/11/2009 JOSE WASHBURN APRNA S 780.79 Other Malaise And Fatigue 05/11/2009 ROSELINE LUIS PHD 280.9 Anemia Hypochromic / Microcytic 05/11/2009 TOBY JANE, ROSELINE Thakur 780.79 Other Malaise And Fatigue 05/11/2009 ROSELINE LUIS PHD 280.9 Anemia Hypochromic / Microcytic 05/11/2009 TOBY JANE, ROSELINE Thakur 780.79 Other Malaise And Fatigue 05/11/2009 GABBIE MAYORGA APRN 280.9 Anemia Hypochromic / Microcytic 05/11/2009 GABBIE MAYORGA APRN 780.79 Other Malaise And Fatigue 05/11/2009 ROSELINE LUIS PHD 280.9 Anemia Hypochromic / Microcytic 05/11/2009 ROSELINE LUIS PHD 780.79 Other Malaise And Fatigue 05/11/2009 YONATHAN RIOS MD 280.9 Anemia Hypochromic / Microcytic 05/11/2009 YONATHAN RIOS MD 780.79 Other Malaise And Fatigue 05/11/2009 LESLY WEAVER APRN R 280.9 Anemia Hypochromic / Microcytic 05/11/2009 LESLY WEAVER APRN 780.79 Other Malaise And Fatigue 05/11/2009 ROSELINE LUIS PHD 280.9 Anemia Hypochromic / Microcytic 05/11/2009 ROSELINE LUIS PHD 780.79 Other Malaise And Fatigue 05/11/2009 JENNIFER CHAIR, ARIANE R 280.9 Anemia Hypochromic / Microcytic 05/11/2009 JENNIFER LOZADA, ARIANE R 780.79 Other Malaise And Fatigue 05/11/2009 TOBY JANE, ROSELINE Thakur 280.9 Anemia Hypochromic / Microcytic 05/11/2009 TOBY JANE, ROSELINE Thakur 780.79 Other Malaise And Fatigue 05/11/2009 SP CARR APRN T 280.9 Anemia Hypochromic / Microcytic 05/11/2009 SP CARR APRN 780.79 Other Malaise And Fatigue 05/11/2009 SCHULZ DO, TREVOR K 280.9 Anemia Hypochromic / Microcytic 05/11/2009 SCHULZ DO, TREVOR K 780.79 Other Malaise And Fatigue 05/11/2009 TOBY JANE, ROSELINE Thakur 280.9 Anemia Hypochromic / Microcytic 05/11/2009 TOBY JANE, ROSELINE Thakur 780.79 Other Malaise And Fatigue 05/11/2009 YONATHAN RIOS MD 280.9 Anemia Hypochromic / Microcytic 05/11/2009 YONATHAN RIOS MD 780.79 Other Malaise And Fatigue 05/11/2009 TOBY PHD, ROSELINE Thakur 280.9 Anemia Hypochromic / Microcytic 05/11/2009 TOBY PHD, ROSELINE Thakur 780.79 Other Malaise And Fatigue 05/11/2009 NADINE HARP MD N 280.9 Anemia Hypochromic / Microcytic 05/11/2009 NADINE HARP MD 780.79 Other Malaise And Fatigue 05/11/2009 NOEMI WASHBURN APRN S 280.9 Anemia Hypochromic / Microcytic 05/11/2009 NOEMI WASHBURN APRN S 780.79 Other Malaise And Fatigue 05/11/2009 TOBY JANE, ROSELINE Thakur 280.9 Anemia Hypochromic / Microcytic 05/11/2009 TOBY JANE, ROSELINE Thakur 780.79 Other Malaise And Fatigue 05/11/2009 NOEMI WASHBURN APRN S 280.9 Anemia Hypochromic / Microcytic 05/11/2009 DIPTI WASHBURN APRNNDA S 780.79 Other Malaise And Fatigue 05/11/2009 YONATHAN RIOS MD 280.9 Anemia Hypochromic / Microcytic 05/11/2009 YONATHAN RIOS MD 780.79 Other Malaise And Fatigue 05/11/2009 WU CHAIR, NOEMI S 280.9 Anemia Hypochromic / Microcytic 05/11/2009 WU ARROYON, NOEMI S 780.79 Other Malaise And Fatigue 05/11/2009 WU CHAIR, NOEMI S 280.9 Anemia Hypochromic / Microcytic 05/11/2009 WU ARROYON, NOEMI S 780.79 Other Malaise And Fatigue 05/11/2009 ROSELINE LUIS PHD 280.9 Anemia Hypochromic / Microcytic 05/11/2009 ROSELINE LUIS PHD 780.79 Other Malaise And Fatigue 05/11/2009 LEXI FRENCH TEACHER, ALYSE M 280.9 Anemia Hypochromic / Microcytic 05/11/2009 LEXI FRENCH TEACHER, ALYSE M 780.79 Other Malaise And Fatigue 05/11/2009 LEXI FRENCH TEACHER, ALYSE M 280.9 Anemia Hypochromic / Microcytic 05/11/2009 LEXI FRENCH TEACHER, ALYSE M 780.79 Other Malaise And Fatigue 05/11/2009 WU CHAIR, NOEMI S 280.9 Anemia Hypochromic / Microcytic 05/11/2009 WU ARROYON, NOEMI S 780.79 Other Malaise And Fatigue 05/11/2009 WU ARROYON, NOEMI S 280.9 Anemia Hypochromic / Microcytic 05/11/2009 WU LOZADA, NOEMI S 780.79 Other Malaise And Fatigue 05/11/2009 ROSELINE LUIS PHD 280.9 Anemia Hypochromic / Microcytic 05/11/2009 TOBY JANE, ROSELINE Thakur 780.79 Other Malaise And Fatigue 05/11/2009 WU ARROYON, NOEMI S 280.9 Anemia Hypochromic / Microcytic 05/11/2009 WU ARROYON, NOEMI S 780.79 Other Malaise And Fatigue 05/25/2009 TOBY PHD, ROSELINE Thakur 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 05/25/2009 TOBY PHD, ROSELINE Thakur 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 05/25/2009 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 05/25/2009 DIPTI WASHBURN APRNNDA S 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 05/25/2009 WU CHAIR, NOEMI S 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 05/25/2009 SCHULZ DO, TREVOR K 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 05/25/2009 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 05/25/2009 WU LOZADA NOEMI S 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 05/25/2009 WU LOZADA, NOEMI S 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 05/25/2009 TOBY JANE, ROSELINE Thakur 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 05/25/2009 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 05/25/2009 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 05/25/2009 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 05/25/2009 SCHULZ DO, TREVOR K 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 05/25/2009 TOBY JANE, ROSELINE Thakur 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 05/25/2009 SCHULZ DO, TREVOR K 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 05/25/2009 GABBIE MAYORGA APRN 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 05/25/2009 YONATHAN RIOS MD 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 05/25/2009 YONATHAN RIOS MD 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 05/25/2009 TOBY JANE, ROSELINE Thakur 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 05/25/2009 TOBY JANE, ROSELINE Thakur 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 05/25/2009 JOSE WASHBURN APRNA S 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 05/25/2009 TOBY JANE, ROSELINE Thakur 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 05/25/2009 YONATHAN RIOS MD 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 05/25/2009 WU LOZADA NOEMI S 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 05/25/2009 WU LOZADA NOEMI S 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 05/25/2009 GABBIE MAYORGA APRN 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 05/25/2009 TOBY JANE, ROSELINE Thakur 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 05/25/2009 TOBY JANE, ROSELINE Thakur 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 05/25/2009 YONATHAN RIOS MD 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 05/25/2009 ROSELINE LUIS PHD 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 05/25/2009 GABBIE MAYORGA APRN 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 05/25/2009 SCHULZ DO, TREVOR K 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 05/25/2009 WU LOZADA NOEMI S 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 05/25/2009 TOBY PHD, ROSELINE Thakur 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 05/25/2009 TOBY JANE, ROSELINE Thakur 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 05/25/2009 TIERRA LOZADA GABBIE GRAF 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 05/25/2009 TOBY PHD, ROSELINE Thakur 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 05/25/2009 YONATHAN RIOS MD 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 05/25/2009 LESLY WEAVER APRN R 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 05/25/2009 TOBY PHD, ROSELINE Thakur 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 05/25/2009 ARIANE RODRIGUEZ APRN R 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 05/25/2009 TOBY PHD, ROSELINE Thakur 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 05/25/2009 SP CARR APRN 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 05/25/2009 LURDES SCHULZ DOA K 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 05/25/2009 TOBY PHD, ROSELINE Thakur 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 05/25/2009 YONATHAN RIOS MD 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 05/25/2009 TOBY JANE, ROSELINE Thakur 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 05/25/2009 NADINE HARP MD 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 05/25/2009 DIPTI WASHBURN APRNNDA S 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 05/25/2009 TOBY JANE, ROSELINE Thakur 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 05/25/2009 WU LOZADA, NOEMI S 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 05/25/2009 YONATHAN RIOS MD 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 05/25/2009 WU LOZADA, NOEMI S 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 05/25/2009 WU LOZADA NOEMI S 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 05/25/2009 TOBY JANE, ROSELINE Thakur 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 05/25/2009 ALYSE LIMA 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 05/25/2009 ALYSE LIMA 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 05/25/2009 DIPTI WASHBURN APRNNDA S 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 05/25/2009 DIPTI WASHBURN APRNNDA S 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 05/25/2009 ROSELINE LUIS PHD 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 05/25/2009 DIPTI WASHBURN APRNNDA S 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 06/05/2009 ROSELINE LUIS PHD 250.90 DIABETES MELLITUS TYPE 2 WITH COMPLICATION 06/05/2009 ROSELINE LUIS PHD 790.93 Serology Prostate-specific Antigen (psa) Elevated 06/05/2009 ROSELINE LUIS PHD 250.90 DIABETES MELLITUS TYPE 2 WITH COMPLICATION 06/05/2009 ROSELINE LUIS PHD 790.93 Serology Prostate-specific Antigen (psa) Elevated 06/05/2009 250.90 DIABETES MELLITUS TYPE 2 WITH COMPLICATION 06/05/2009 790.93 Serology Prostate-specific Antigen (psa) Elevated 06/05/2009 DIPTI WASHBURN APRNNDA S 250.90 DIABETES MELLITUS TYPE 2 WITH COMPLICATION 06/05/2009 DIPTI WASHBURN APRNNDA S 790.93 Serology Prostate-specific Antigen (psa) Elevated 06/05/2009 WU LOZADA, NOEMI S 250.90 DIABETES MELLITUS TYPE 2 WITH COMPLICATION 06/05/2009 WU LOZADA, NOEMI S 790.93 Serology Prostate-specific Antigen (psa) Elevated 06/05/2009 SCHULZ DO TREVOR K 250.90 DIABETES MELLITUS TYPE 2 WITH COMPLICATION 06/05/2009 SCHULZ DO TREVOR K 790.93 Serology Prostate-specific Antigen (psa) Elevated 06/05/2009 250.90 DIABETES MELLITUS TYPE 2 WITH COMPLICATION 06/05/2009 790.93 Serology Prostate-specific Antigen (psa) Elevated 06/05/2009 WU LOZADA, NOEMI S 250.90 DIABETES MELLITUS TYPE 2 WITH COMPLICATION 06/05/2009 WU LOZADA NOEMI S 790.93 Serology Prostate-specific Antigen (psa) Elevated 06/05/2009 WU LOZADA, NOEMI S 250.90 DIABETES MELLITUS TYPE 2 WITH COMPLICATION 06/05/2009 WU LOZADA NOEMI S 790.93 Serology Prostate-specific Antigen (psa) Elevated 06/05/2009 ROSELINE LUIS PHD 250.90 DIABETES MELLITUS TYPE 2 WITH COMPLICATION 06/05/2009 TOBY JANE, ROSELINE Thakur 790.93 Serology Prostate-specific Antigen (psa) Elevated 06/05/2009 250.90 DIABETES MELLITUS TYPE 2 WITH COMPLICATION 06/05/2009 790.93 Serology Prostate-specific Antigen (psa) Elevated 06/05/2009 250.90 DIABETES MELLITUS TYPE 2 WITH COMPLICATION 06/05/2009 790.93 Serology Prostate-specific Antigen (psa) Elevated 06/05/2009 250.90 DIABETES MELLITUS TYPE 2 WITH COMPLICATION 06/05/2009 790.93 Serology Prostate-specific Antigen (psa) Elevated 06/05/2009 TREVOR SCHULZ DO K 250.90 DIABETES MELLITUS TYPE 2 WITH COMPLICATION 06/05/2009 LURDES SCHULZ DOA K 790.93 Serology Prostate-specific Antigen (psa) Elevated 06/05/2009 ROSELINE LUIS PHD 250.90 DIABETES MELLITUS TYPE 2 WITH COMPLICATION 06/05/2009 ROSELINE LUIS PHD 790.93 Serology Prostate-specific Antigen (psa) Elevated 06/05/2009 TREVOR SCHULZ DO K 250.90 DIABETES MELLITUS TYPE 2 WITH COMPLICATION 06/05/2009 LURDES SCHULZ DOA K 790.93 Serology Prostate-specific Antigen (psa) Elevated 06/05/2009 GABBIE MAYORGA APRN 250.90 DIABETES MELLITUS TYPE 2 WITH COMPLICATION 06/05/2009 GABBIE MAYORGA APRN 790.93 Serology Prostate-specific Antigen (psa) Elevated 06/05/2009 YONATHAN RIOS MD 250.90 DIABETES MELLITUS TYPE 2 WITH COMPLICATION 06/05/2009 YONATHAN RIOS MD 790.93 Serology Prostate-specific Antigen (psa) Elevated 06/05/2009 YONATHAN RIOS MD 250.90 DIABETES MELLITUS TYPE 2 WITH COMPLICATION 06/05/2009 YONATHAN RIOS MD 790.93 Serology Prostate-specific Antigen (psa) Elevated 06/05/2009 ROSELINE LUIS PHD 250.90 DIABETES MELLITUS TYPE 2 WITH COMPLICATION 06/05/2009 ROSELINE LUIS PHD 790.93 Serology Prostate-specific Antigen (psa) Elevated 06/05/2009 ROSELINE LUIS PHD 250.90 DIABETES MELLITUS TYPE 2 WITH COMPLICATION 06/05/2009 ROSELINE LUIS PHD 790.93 Serology Prostate-specific Antigen (psa) Elevated 06/05/2009 WU CHAIR, NOEMI S 250.90 DIABETES MELLITUS TYPE 2 WITH COMPLICATION 06/05/2009 WU LOZADA NOEMI S 790.93 Serology Prostate-specific Antigen (psa) Elevated 06/05/2009 ROSELINE LUIS PHD 250.90 DIABETES MELLITUS TYPE 2 WITH COMPLICATION 06/05/2009 ROSELINE LUIS PHD 790.93 Serology Prostate-specific Antigen (psa) Elevated 06/05/2009 YONATHAN RIOS MD 250.90 DIABETES MELLITUS TYPE 2 WITH COMPLICATION 06/05/2009 YONATHAN RIOS MD 790.93 Serology Prostate-specific Antigen (psa) Elevated 06/05/2009 WU LOZADA NOEMI S 250.90 DIABETES MELLITUS TYPE 2 WITH COMPLICATION 06/05/2009 WU LOZADA NOEMI S 790.93 Serology Prostate-specific Antigen (psa) Elevated 06/05/2009 WU LOZADA NOEMI S 250.90 DIABETES MELLITUS TYPE 2 WITH COMPLICATION 06/05/2009 WU LOZADA NOEMI S 790.93 Serology Prostate-specific Antigen (psa) Elevated 06/05/2009 GABBIE MAYORGA APRN 250.90 DIABETES MELLITUS TYPE 2 WITH COMPLICATION 06/05/2009 GABBIE MAYORGA APRN 790.93 Serology Prostate-specific Antigen (psa) Elevated 06/05/2009 ROSELINE LUIS PHD 250.90 DIABETES MELLITUS TYPE 2 WITH COMPLICATION 06/05/2009 ROSELINE LUIS PHD 790.93 Serology Prostate-specific Antigen (psa) Elevated 06/05/2009 ROSELINE LUIS PHD 250.90 DIABETES MELLITUS TYPE 2 WITH COMPLICATION 06/05/2009 ROSELINE LUIS PHD 790.93 Serology Prostate-specific Antigen (psa) Elevated 06/05/2009 YONATHAN RIOS MD 250.90 DIABETES MELLITUS TYPE 2 WITH COMPLICATION 06/05/2009 YONATHAN RIOS MD 790.93 Serology Prostate-specific Antigen (psa) Elevated 06/05/2009 ROSELINE LUIS PHD 250.90 DIABETES MELLITUS TYPE 2 WITH COMPLICATION 06/05/2009 ROSELINE LUIS PHD 790.93 Serology Prostate-specific Antigen (psa) Elevated 06/05/2009 GABBIE MAYORGA APRN 250.90 DIABETES MELLITUS TYPE 2 WITH COMPLICATION 06/05/2009 GABBIE MAYORGA APRN 790.93 Serology Prostate-specific Antigen (psa) Elevated 06/05/2009 LURDES SCHULZ DOA K 250.90 DIABETES MELLITUS TYPE 2 WITH COMPLICATION 06/05/2009 SCHULZ TREVOR STROUD K 790.93 Serology Prostate-specific Antigen (psa) Elevated 06/05/2009 NOEMI WASHBURN APRN S 250.90 DIABETES MELLITUS TYPE 2 WITH COMPLICATION 06/05/2009 NOEMI WASHBURN APRN S 790.93 Serology Prostate-specific Antigen (psa) Elevated 06/05/2009 ROSELINE LUIS PHD 250.90 DIABETES MELLITUS TYPE 2 WITH COMPLICATION 06/05/2009 ROSELINE LUIS PHD 790.93 Serology Prostate-specific Antigen (psa) Elevated 06/05/2009 ROSELINE LUIS PHD 250.90 DIABETES MELLITUS TYPE 2 WITH COMPLICATION 06/05/2009 ROSELINE LUIS PHD 790.93 Serology Prostate-specific Antigen (psa) Elevated 06/05/2009 GABBIE MAYORGA APRN 250.90 DIABETES MELLITUS TYPE 2 WITH COMPLICATION 06/05/2009 GABBIE MAYORGA APRN 790.93 Serology Prostate-specific Antigen (psa) Elevated 06/05/2009 ROSELINE LUIS PHD 250.90 DIABETES MELLITUS TYPE 2 WITH COMPLICATION 06/05/2009 ROSELINE LUIS PHD 790.93 Serology Prostate-specific Antigen (psa) Elevated 06/05/2009 YONATHAN RIOS MD 250.90 DIABETES MELLITUS TYPE 2 WITH COMPLICATION 06/05/2009 YONATHAN RIOS MD 790.93 Serology Prostate-specific Antigen (psa) Elevated 06/05/2009 LESLY WEAVER APRN 250.90 DIABETES MELLITUS TYPE 2 WITH COMPLICATION 06/05/2009 LESLY WEAVER APRN 790.93 Serology Prostate-specific Antigen (psa) Elevated 06/05/2009 ROSELINE LUIS PHD 250.90 DIABETES MELLITUS TYPE 2 WITH COMPLICATION 06/05/2009 ROSELINE LUIS PHD 790.93 Serology Prostate-specific Antigen (psa) Elevated 06/05/2009 ARIANE RODRIGUEZ APRN 250.90 DIABETES MELLITUS TYPE 2 WITH COMPLICATION 06/05/2009 ARIANE RODRIGUEZ APRN 790.93 Serology Prostate-specific Antigen (psa) Elevated 06/05/2009 ROSELINE LUIS PHD 250.90 DIABETES MELLITUS TYPE 2 WITH COMPLICATION 06/05/2009 ROSELINE LUIS PHD 790.93 Serology Prostate-specific Antigen (psa) Elevated 06/05/2009 SP CARR APRN 250.90 DIABETES MELLITUS TYPE 2 WITH COMPLICATION 06/05/2009 SP CARR APRN 790.93 Serology Prostate-specific Antigen (psa) Elevated 06/05/2009 TREVRO SCHULZ DO K 250.90 DIABETES MELLITUS TYPE 2 WITH COMPLICATION 06/05/2009 TREVOR SCHULZ DO K 790.93 Serology Prostate-specific Antigen (psa) Elevated 06/05/2009 ROSELINE LUIS PHD 250.90 DIABETES MELLITUS TYPE 2 WITH COMPLICATION 06/05/2009 ROSELINE LUIS PHD 790.93 Serology Prostate-specific Antigen (psa) Elevated 06/05/2009 YONATHAN RIOS MD 250.90 DIABETES MELLITUS TYPE 2 WITH COMPLICATION 06/05/2009 YONATHAN RIOS MD 790.93 Serology Prostate-specific Antigen (psa) Elevated 06/05/2009 ROSELINE LUIS PHD 250.90 DIABETES MELLITUS TYPE 2 WITH COMPLICATION 06/05/2009 ROSELINE LUIS PHD 790.93 Serology Prostate-specific Antigen (psa) Elevated 06/05/2009 NADINE HARP MD 250.90 DIABETES MELLITUS TYPE 2 WITH COMPLICATION 06/05/2009 NADINE HARP MD 790.93 Serology Prostate-specific Antigen (psa) Elevated 06/05/2009 NOEMI WASHBURN APRN S 250.90 DIABETES MELLITUS TYPE 2 WITH COMPLICATION 06/05/2009 NOEMI WASHBURN APRN S 790.93 Serology Prostate-specific Antigen (psa) Elevated 06/05/2009 ROSELINE LUIS PHD 250.90 DIABETES MELLITUS TYPE 2 WITH COMPLICATION 06/05/2009 ROSELINE LUIS PHD 790.93 Serology Prostate-specific Antigen (psa) Elevated 06/05/2009 NOEMI WASHBURN APRN S 250.90 DIABETES MELLITUS TYPE 2 WITH COMPLICATION 06/05/2009 NOEMI WASHBURN APRN S 790.93 Serology Prostate-specific Antigen (psa) Elevated 06/05/2009 YONATHAN RIOS MD 250.90 DIABETES MELLITUS TYPE 2 WITH COMPLICATION 06/05/2009 YONATHAN RIOS MD 790.93 Serology Prostate-specific Antigen (psa) Elevated 06/05/2009 NOEMI WASHBURN APRN S 250.90 DIABETES MELLITUS TYPE 2 WITH COMPLICATION 06/05/2009 WU CHAIR, NOEMI S 790.93 Serology Prostate-specific Antigen (psa) Elevated 06/05/2009 WU LOZADA, NOEMI S 250.90 DIABETES MELLITUS TYPE 2 WITH COMPLICATION 06/05/2009 WU LOZADA, NOEMI S 790.93 Serology Prostate-specific Antigen (psa) Elevated 06/05/2009 ROSELINE LUIS PHD 250.90 DIABETES MELLITUS TYPE 2 WITH COMPLICATION 06/05/2009 ROSELINE LUIS PHD 790.93 Serology Prostate-specific Antigen (psa) Elevated 06/05/2009 LEXI FRENCH TEACHER, ALYSE M 250.90 DIABETES MELLITUS TYPE 2 WITH COMPLICATION 06/05/2009 LEXI FRENCH TEACHER, ALYSE M 790.93 Serology Prostate-specific Antigen (psa) Elevated 06/05/2009 LEXI FRENCH TEACHER, ALYSE M 250.90 DIABETES MELLITUS TYPE 2 WITH COMPLICATION 06/05/2009 LEXI FRENCH TEACHER, ALYSE M 790.93 Serology Prostate-specific Antigen (psa) Elevated 06/05/2009 DIPTI WASHBURN APRNNDA S 250.90 DIABETES MELLITUS TYPE 2 WITH COMPLICATION 06/05/2009 WU LOZADA, NOEMI S 790.93 Serology Prostate-specific Antigen (psa) Elevated 06/05/2009 WU LOZADA, NOEMI S 250.90 DIABETES MELLITUS TYPE 2 WITH COMPLICATION 06/05/2009 WU LOZADA, NOEMI S 790.93 Serology Prostate-specific Antigen (psa) Elevated 06/05/2009 ROSELINE LUIS PHD 250.90 DIABETES MELLITUS TYPE 2 WITH COMPLICATION 06/05/2009 ROSELINE LUIS PHD 790.93 Serology Prostate-specific Antigen (psa) Elevated 06/05/2009 WU LOZADA, NOEMI S 250.90 DIABETES MELLITUS TYPE 2 WITH COMPLICATION 06/05/2009 WU LOZADA, NOEMI S 790.93 Serology Prostate-specific Antigen (psa) Elevated 07/02/2009 ROSELINE LUIS PHD 278.00 OBESITY, UNSPECIFIED 07/02/2009 ROSELINE LUIS PHD 327.23 SLEEP APNEA OBSTRUCTIVE 07/02/2009 ROSELINE LUIS PHD 278.00 OBESITY, UNSPECIFIED 07/02/2009 ROSELINE LUIS PHD 327.23 SLEEP APNEA OBSTRUCTIVE 07/02/2009 278.00 OBESITY, UNSPECIFIED 07/02/2009 327.23 SLEEP APNEA OBSTRUCTIVE 07/02/2009 WU CHAIR, NOEMI S 278.00 OBESITY, UNSPECIFIED 07/02/2009 WU CHAIR, NOEMI S 327.23 SLEEP APNEA OBSTRUCTIVE 07/02/2009 WU CHAIR, NOEMI S 278.00 OBESITY, UNSPECIFIED 07/02/2009 WU CHAIR, NOEMI S 327.23 SLEEP APNEA OBSTRUCTIVE 07/02/2009 SCHULZ DO, TREVOR K 278.00 OBESITY, UNSPECIFIED 07/02/2009 SCHULZ DO, TREVOR K 327.23 SLEEP APNEA OBSTRUCTIVE 07/02/2009 278.00 OBESITY, UNSPECIFIED 07/02/2009 327.23 SLEEP APNEA OBSTRUCTIVE 07/02/2009 WU CHAIR, NOEMI S 278.00 OBESITY, UNSPECIFIED 07/02/2009 WU CHAIR, NOEMI S 327.23 SLEEP APNEA OBSTRUCTIVE 07/02/2009 WU CHAIR, NOEMI S 278.00 OBESITY, UNSPECIFIED 07/02/2009 WU CHAIR, NOEMI S 327.23 SLEEP APNEA OBSTRUCTIVE 07/02/2009 TOBY JANE, ROSELINE Thakur 278.00 OBESITY, UNSPECIFIED 07/02/2009 TOBY JANE, ROSELINE Thakur 327.23 SLEEP APNEA OBSTRUCTIVE 07/02/2009 278.00 OBESITY, UNSPECIFIED 07/02/2009 327.23 SLEEP APNEA OBSTRUCTIVE 07/02/2009 278.00 OBESITY, UNSPECIFIED 07/02/2009 327.23 SLEEP APNEA OBSTRUCTIVE 07/02/2009 278.00 OBESITY, UNSPECIFIED 07/02/2009 327.23 SLEEP APNEA OBSTRUCTIVE 07/02/2009 SCHULZ DO, TREVOR K 278.00 OBESITY, UNSPECIFIED 07/02/2009 SCHULZ DO, TREVOR K 327.23 SLEEP APNEA OBSTRUCTIVE 07/02/2009 TOBY JANE, ROSELINE Thakur 278.00 OBESITY, UNSPECIFIED 07/02/2009 TOBY JANE, ROSELINE Thakur 327.23 SLEEP APNEA OBSTRUCTIVE 07/02/2009 SCHULZ DO, TREVOR K 278.00 OBESITY, UNSPECIFIED 07/02/2009 SCHULZ DO, TREVOR K 327.23 SLEEP APNEA OBSTRUCTIVE 07/02/2009 MAYORGA CHAIRGABBIE Baum 278.00 OBESITY, UNSPECIFIED 07/02/2009 TIERRA CHAIRGABBIE Baum 327.23 SLEEP APNEA OBSTRUCTIVE 07/02/2009 YONATHAN RIOS MD 278.00 OBESITY, UNSPECIFIED 07/02/2009 YONATHAN RIOS MD 327.23 SLEEP APNEA OBSTRUCTIVE 07/02/2009 YONATHAN RIOS MD 278.00 OBESITY, UNSPECIFIED 07/02/2009 YONATHAN RIOS MD 327.23 SLEEP APNEA OBSTRUCTIVE 07/02/2009 TOBY JANE, ROSELINE Thakur 278.00 OBESITY, UNSPECIFIED 07/02/2009 TOBY JANE, ROSELINE Thakur 327.23 SLEEP APNEA OBSTRUCTIVE 07/02/2009 TOBY JANE, ROSELINE Thakur 278.00 OBESITY, UNSPECIFIED 07/02/2009 TOBY JANE, ROSELINE Thakur 327.23 SLEEP APNEA OBSTRUCTIVE 07/02/2009 WU CHAIR, NOEMI S 278.00 OBESITY, UNSPECIFIED 07/02/2009 WU CHAIR, NOEMI S 327.23 SLEEP APNEA OBSTRUCTIVE 07/02/2009 TOBY JANE, ROSELINE Thakur 278.00 OBESITY, UNSPECIFIED 07/02/2009 TOBY JANE, ROSELINE Thakur 327.23 SLEEP APNEA OBSTRUCTIVE 07/02/2009 YONATHAN RIOS MD 278.00 OBESITY, UNSPECIFIED 07/02/2009 YONATHAN RIOS MD 327.23 SLEEP APNEA OBSTRUCTIVE 07/02/2009 WU CHAIR, NOEMI S 278.00 OBESITY, UNSPECIFIED 07/02/2009 WU CHAIR, NOEMI S 327.23 SLEEP APNEA OBSTRUCTIVE 07/02/2009 WU CHAIR, NOEMI S 278.00 OBESITY, UNSPECIFIED 07/02/2009 WU CHAIR, NOEMI S 327.23 SLEEP APNEA OBSTRUCTIVE 07/02/2009 MAYORGA CHAIR, GABBIE GRAF 278.00 OBESITY, UNSPECIFIED 07/02/2009 TIERRA CHAIR, GABBIE GRAF 327.23 SLEEP APNEA OBSTRUCTIVE 07/02/2009 TOBY JANE, ROSELINE Thakur 278.00 OBESITY, UNSPECIFIED 07/02/2009 TOBY JANE, ROSELINE Thakur 327.23 SLEEP APNEA OBSTRUCTIVE 07/02/2009 TOBY JANE, ROSELINE Thakur 278.00 OBESITY, UNSPECIFIED 07/02/2009 TOBY JANE, ROSELINE Thakur 327.23 SLEEP APNEA OBSTRUCTIVE 07/02/2009 YONATHAN RIOS MD 278.00 OBESITY, UNSPECIFIED 07/02/2009 YONATHAN RIOS MD 327.23 SLEEP APNEA OBSTRUCTIVE 07/02/2009 TOBY JANE, ROSELINE Thakur 278.00 OBESITY, UNSPECIFIED 07/02/2009 TOBY JANE, ROSELINE Thakur 327.23 SLEEP APNEA OBSTRUCTIVE 07/02/2009 TIERRA LOZADA, GABBIE GRAF 278.00 OBESITY, UNSPECIFIED 07/02/2009 TIERRA LOZADA, GABBIE GRAF 327.23 SLEEP APNEA OBSTRUCTIVE 07/02/2009 SCHULZ DO, TREVOR K 278.00 OBESITY, UNSPECIFIED 07/02/2009 SCHULZ DO, TREVOR K 327.23 SLEEP APNEA OBSTRUCTIVE 07/02/2009 WU CHAIR, NOEMI S 278.00 OBESITY, UNSPECIFIED 07/02/2009 WU CHAIR, NOEMI S 327.23 SLEEP APNEA OBSTRUCTIVE 07/02/2009 TOBY JANE, ROSELINE Thakur 278.00 OBESITY, UNSPECIFIED 07/02/2009 TOBY JANE, ROSELINE Thakur 327.23 SLEEP APNEA OBSTRUCTIVE 07/02/2009 TOBY JANE, ROSELINE Thakur 278.00 OBESITY, UNSPECIFIED 07/02/2009 TOBY JANE, ROSELINE Thakur 327.23 SLEEP APNEA OBSTRUCTIVE 07/02/2009 TIERRA LOZADA, GABBIE HOMAR 278.00 OBESITY, UNSPECIFIED 07/02/2009 TIERRA LOZADA, GABBIE HOMAR 327.23 SLEEP APNEA OBSTRUCTIVE 07/02/2009 TOBY JANE, ROSELINE Thakur 278.00 OBESITY, UNSPECIFIED 07/02/2009 TOBY JANE, ROSELINE Thakur 327.23 SLEEP APNEA OBSTRUCTIVE 07/02/2009 YONATHAN RIOS MD 278.00 OBESITY, UNSPECIFIED 07/02/2009 YONATHAN RIOS MD 327.23 SLEEP APNEA OBSTRUCTIVE 07/02/2009 OWEN LOZADA, LESLY R 278.00 OBESITY, UNSPECIFIED 07/02/2009 OWEN LOZADA, LESLY R 327.23 SLEEP APNEA OBSTRUCTIVE 07/02/2009 TOBY JANE, ROSELINE Thakur 278.00 OBESITY, UNSPECIFIED 07/02/2009 TOBY JANE, ROSELINE Thakur 327.23 SLEEP APNEA OBSTRUCTIVE 07/02/2009 JENNIFER ARROYON, ARIANE R 278.00 OBESITY, UNSPECIFIED 07/02/2009 JENNIFER ARROYON, ARIANE R 327.23 SLEEP APNEA OBSTRUCTIVE 07/02/2009 TOBY JANE, ROSELINE Thakur 278.00 OBESITY, UNSPECIFIED 07/02/2009 TOBY JANE, ROSELINE Thakur 327.23 SLEEP APNEA OBSTRUCTIVE 07/02/2009 SP CARR APRN 278.00 OBESITY, UNSPECIFIED 07/02/2009 SP CARR APRN 327.23 SLEEP APNEA OBSTRUCTIVE 07/02/2009 SCHULZ DO, TREVOR K 278.00 OBESITY, UNSPECIFIED 07/02/2009 JAZZ TREVOR STROUD K 327.23 SLEEP APNEA OBSTRUCTIVE 07/02/2009 TOBY PHD, ROSELINE Thakur 278.00 OBESITY, UNSPECIFIED 07/02/2009 TOBY JANE, ROSELINE Thakur 327.23 SLEEP APNEA OBSTRUCTIVE 07/02/2009 YONATHAN RIOS MD 278.00 OBESITY, UNSPECIFIED 07/02/2009 YONATHAN RIOS MD 327.23 SLEEP APNEA OBSTRUCTIVE 07/02/2009 TOBY JANE, ROSELINE Thakur 278.00 OBESITY, UNSPECIFIED 07/02/2009 TOBY JANE, ROSELINE Thakur 327.23 SLEEP APNEA OBSTRUCTIVE 07/02/2009 LOYD ROBINS, NADINE Baum 278.00 OBESITY, UNSPECIFIED 07/02/2009 LOYD ROBINS, NADINE Baum 327.23 SLEEP APNEA OBSTRUCTIVE 07/02/2009 WU CHAIR, NOEMI S 278.00 OBESITY, UNSPECIFIED 07/02/2009 WU CHAIR, NOEMI S 327.23 SLEEP APNEA OBSTRUCTIVE 07/02/2009 TOBY JANE, ROSELINE Thakur 278.00 OBESITY, UNSPECIFIED 07/02/2009 TOBY JANE, ROSELINE Thakur 327.23 SLEEP APNEA OBSTRUCTIVE 07/02/2009 WU CHAIR, NOEMI S 278.00 OBESITY, UNSPECIFIED 07/02/2009 WU CHAIR, NOEMI S 327.23 SLEEP APNEA OBSTRUCTIVE 07/02/2009 YONATHAN RIOS MD 278.00 OBESITY, UNSPECIFIED 07/02/2009 YONATHAN RIOS MD 327.23 SLEEP APNEA OBSTRUCTIVE 07/02/2009 WU CHAIR, NOEMI S 278.00 OBESITY, UNSPECIFIED 07/02/2009 WU CHAIR, NOEMI S 327.23 SLEEP APNEA OBSTRUCTIVE 07/02/2009 WU CHAIR, NOEMI S 278.00 OBESITY, UNSPECIFIED 07/02/2009 WU CHAIR, NOEMI S 327.23 SLEEP APNEA OBSTRUCTIVE 07/02/2009 TOBY JANE, ROSELINE Thakur 278.00 OBESITY, UNSPECIFIED 07/02/2009 TOBY JANE, ROSELINE Thakur 327.23 SLEEP APNEA OBSTRUCTIVE 07/02/2009 ALYSE LIMA M 278.00 OBESITY, UNSPECIFIED 07/02/2009 ALYSE LIMA M 327.23 SLEEP APNEA OBSTRUCTIVE 07/02/2009 ALYSE LIMA M 278.00 OBESITY, UNSPECIFIED 07/02/2009 SAUMYA LIMAISTIN M 327.23 SLEEP APNEA OBSTRUCTIVE 07/02/2009 WU CHAIR, NOEMI S 278.00 OBESITY, UNSPECIFIED 07/02/2009 WU CHAIR, NOEMI S 327.23 SLEEP APNEA OBSTRUCTIVE 07/02/2009 WU CHAIR, NOEMI S 278.00 OBESITY, UNSPECIFIED 07/02/2009 WU ARROYON, NOEMI S 327.23 SLEEP APNEA OBSTRUCTIVE 07/02/2009 ROSELINE LUIS PHD 278.00 OBESITY, UNSPECIFIED 07/02/2009 ROSELINE LUIS PHD 327.23 SLEEP APNEA OBSTRUCTIVE 07/02/2009 WU LOZADA, NOEMI S 278.00 OBESITY, UNSPECIFIED 07/02/2009 WU LOZADA, NOEMI S 327.23 SLEEP APNEA OBSTRUCTIVE 10/15/2009 ROSELINE LUIS PHD 787.03 Vomiting Alone 10/15/2009 ROSELINE LUIS PHD 787.91 Diarrhea 10/15/2009 ROSELINE LUIS PHD 787.03 Vomiting Alone 10/15/2009 ROSELINE LIUS PHD 787.91 Diarrhea 10/15/2009 787.03 Vomiting Alone 10/15/2009 787.91 Diarrhea 10/15/2009 WU LOZADA, NOEMI S 787.03 Vomiting Alone 10/15/2009 DIPTI WASHBURN APRNNDA S 787.91 Diarrhea 10/15/2009 DIPTI WASHBURN APRNNDA S 787.03 Vomiting Alone 10/15/2009 DIPTI WASHBURN APRNNDA S 787.91 Diarrhea 10/15/2009 SCHULZ DO, TREVOR K 787.03 Vomiting Alone 10/15/2009 SCHULZ DO, TREVOR K 787.91 Diarrhea 10/15/2009 787.03 Vomiting Alone 10/15/2009 787.91 Diarrhea 10/15/2009 WU LOZADA, NOEMI S 787.03 Vomiting Alone 10/15/2009 WU ARROYON NOEMI S 787.91 Diarrhea 10/15/2009 WU LOZADA NOEMI S 787.03 Vomiting Alone 10/15/2009 WU LOZADA NOEMI S 787.91 Diarrhea 10/15/2009 ROSELINE LUIS PHD 787.03 Vomiting Alone 10/15/2009 TOBY JANE, ROSELINE Thakur 787.91 Diarrhea 10/15/2009 787.03 Vomiting Alone 10/15/2009 787.91 Diarrhea 10/15/2009 787.03 Vomiting Alone 10/15/2009 787.91 Diarrhea 10/15/2009 787.03 Vomiting Alone 10/15/2009 787.91 Diarrhea 10/15/2009 SCHULZ DO, TREVOR K 787.03 Vomiting Alone 10/15/2009 SCHULZ DO, TREVOR K 787.91 Diarrhea 10/15/2009 TOBY JANE, ROSELINE Thakur 787.03 Vomiting Alone 10/15/2009 TOBY JANE, ROSELINE Thakur 787.91 Diarrhea 10/15/2009 SCHULZ DO, TREVOR K 787.03 Vomiting Alone 10/15/2009 SCHULZ , TREVOR K 787.91 Diarrhea 10/15/2009 TIERRA LOZADA GABBIE GRAF 787.03 Vomiting Alone 10/15/2009 TIERRA LOZADA GABBIE GRAF 787.91 Diarrhea 10/15/2009 YONATHAN RIOS MD 787.03 Vomiting Alone 10/15/2009 YONATHAN RIOS MD 787.91 Diarrhea 10/15/2009 YONATHAN RIOS MD 787.03 Vomiting Alone 10/15/2009 YONATHAN RIOS MD.91 Diarrhea 10/15/2009 TOBY JANE, ROSELINE Thakur 787.03 Vomiting Alone 10/15/2009 TOBY JANE, ROSELINE Thakur 787.91 Diarrhea 10/15/2009 TOBY JANE, ROSELINE Thakur 787.03 Vomiting Alone 10/15/2009 TOBY JANE, ROSELINE Thakur 787.91 Diarrhea 10/15/2009 NOEMI WASHBURN APRN S 787.03 Vomiting Alone 10/15/2009 DIPTI WASHBURN APRNNDA S 787.91 Diarrhea 10/15/2009 TOBY JANE, ROSELINE Thakur 787.03 Vomiting Alone 10/15/2009 TOBY JANE, ROSELINE Thakur 787.91 Diarrhea 10/15/2009 YONATHAN RIOS MD 787.03 Vomiting Alone 10/15/2009 YONATHAN RIOS MD 787.91 Diarrhea 10/15/2009 DIPTI WASHBURN APRNNDA S 787.03 Vomiting Alone 10/15/2009 DIPTI WASHBURN APRNNDA S 787.91 Diarrhea 10/15/2009 NOEMI WASHBURN APRN S 787.03 Vomiting Alone 10/15/2009 JOSE WASHBURN APRNA S 787.91 Diarrhea 10/15/2009 TIERRA LOZADA GABBIE HOMAR 787.03 Vomiting Alone 10/15/2009 TIERRA LOZADA GABBIE HOMAR 787.91 Diarrhea 10/15/2009 TOBY JANE, ROSELINE Thakur 787.03 Vomiting Alone 10/15/2009 TOBY JANE, ROSELINE Thakur 787.91 Diarrhea 10/15/2009 TOBY JANE, ROSELINE Thakur 787.03 Vomiting Alone 10/15/2009 TOBY JANE, ROSELINE Thakur 787.91 Diarrhea 10/15/2009 YONATHAN RIOS MD 787.03 Vomiting Alone 10/15/2009 YONATHAN RIOS MD.91 Diarrhea 10/15/2009 TOBY JANE, ROSELINE Thakur 787.03 Vomiting Alone 10/15/2009 TOBY JANE, ROSELINE Thakur 787.91 Diarrhea 10/15/2009 GABBIE MAYORGA APRN 787.03 Vomiting Alone 10/15/2009 GABBIE MAYORGA APRN 787.91 Diarrhea 10/15/2009 SCHULZ DO, TREVOR K 787.03 Vomiting Alone 10/15/2009 SCHULZ DO, TREVOR K 787.91 Diarrhea 10/15/2009 JOSE WASHBURN APRNA S 787.03 Vomiting Alone 10/15/2009 JOSE WASHBURN APRNA S 787.91 Diarrhea 10/15/2009 TOBY JANE, ROSELINE Thakur 787.03 Vomiting Alone 10/15/2009 TOBY JANE, ROSELINE Thakur 787.91 Diarrhea 10/15/2009 ROSELINE LUIS PHD 787.03 Vomiting Alone 10/15/2009 TOBY JANE, ROSELINE Thakur 787.91 Diarrhea 10/15/2009 TIERRA LOZADA GABBIE HOMAR 787.03 Vomiting Alone 10/15/2009 GABBIE MAYORGA APRN 787.91 Diarrhea 10/15/2009 TOBY JANE, ROSELINE Thakur 787.03 Vomiting Alone 10/15/2009 TOBY JANE, ROSELINE Thakur 787.91 Diarrhea 10/15/2009 YONATHAN RIOS MD 787.03 Vomiting Alone 10/15/2009 YONATHAN RIOS MD.91 Diarrhea 10/15/2009 WEAVER CHAIR, LESLY R 787.03 Vomiting Alone 10/15/2009 OWEN LOZADA, LESLY R 787.91 Diarrhea 10/15/2009 TOBY JANE, ROSELINE Thakur 787.03 Vomiting Alone 10/15/2009 TOBY JANE, ROSELINE Thakur 787.91 Diarrhea 10/15/2009 JENNIFER LOZADA, ARIANE R 787.03 Vomiting Alone 10/15/2009 JENNIFER LOZADA, ARIANE R 787.91 Diarrhea 10/15/2009 TOBY JANE, ROSELINE Thakur 787.03 Vomiting Alone 10/15/2009 TOBY JANE, ROSELINE Thakur 787.91 Diarrhea 10/15/2009 LILLY LOZADA, SP T 787.03 Vomiting Alone 10/15/2009 LILLY LOZADA SP T 787.91 Diarrhea 10/15/2009 SCHULZ DO, TREVOR K 787.03 Vomiting Alone 10/15/2009 SCHULZ DO, TREVOR K 787.91 Diarrhea 10/15/2009 TOBY JANE, ROSELINE Thakur 787.03 Vomiting Alone 10/15/2009 TOBY JANE, ROSELINE Thakur 787.91 Diarrhea 10/15/2009 YONATHAN RIOS MD 787.03 Vomiting Alone 10/15/2009 YONATHAN RIOS MD.91 Diarrhea 10/15/2009 TOBY JANE, ROSELINE Thakur 787.03 Vomiting Alone 10/15/2009 TOBY JANE, ROSELINE Thakur 787.91 Diarrhea 10/15/2009 NADINE HARP MD N 787.03 Vomiting Alone 10/15/2009 NADINE HARP MD 787.91 Diarrhea 10/15/2009 NOEMI WASHBURN APRN S 787.03 Vomiting Alone 10/15/2009 NOEMI WASHBURN APRN S 787.91 Diarrhea 10/15/2009 TOBY JANE, ROSELINE Thakur 787.03 Vomiting Alone 10/15/2009 TOBY JANE, ROSELINE Thakur 787.91 Diarrhea 10/15/2009 NOEMI WASHBURN APRN S 787.03 Vomiting Alone 10/15/2009 JOSE WASHBURN APRNA S 787.91 Diarrhea 10/15/2009 YONATHAN RIOS MD 787.03 Vomiting Alone 10/15/2009 YONATHAN RIOS MD.91 Diarrhea 10/15/2009 NOEMI WASHBURN APRN S 787.03 Vomiting Alone 10/15/2009 WU LOZADA NOEMI S 787.91 Diarrhea 10/15/2009 DIPTI WASHBURN APRNNDA S 787.03 Vomiting Alone 10/15/2009 WU LOZADA NOEMI S 787.91 Diarrhea 10/15/2009 TOBY PHD, ROSELINE Thakur 787.03 Vomiting Alone 10/15/2009 TOBY JANE, ROSELINE Thakur 787.91 Diarrhea 10/15/2009 ALYSE LIMA 787.03 Vomiting Alone 10/15/2009 ALYSE LIMA 787.91 Diarrhea 10/15/2009 ALYSE LIMA 787.03 Vomiting Alone 10/15/2009 ALYSE LIMA 787.91 Diarrhea 10/15/2009 DIPTI WASHBURN APRNNDA S 787.03 Vomiting Alone 10/15/2009 DIPTI WASHBURN APRNNDA S 787.91 Diarrhea 10/15/2009 DIPTI WASHBURN APRNNDA S 787.03 Vomiting Alone 10/15/2009 DIPTI WASHBURN APRNNDA S 787.91 Diarrhea 10/15/2009 TOBY JANE, ROSELINE Thakur 787.03 Vomiting Alone 10/15/2009 TOBY JANE, ROSELINE Thakur 787.91 Diarrhea 10/15/2009 WU LOZADA NOEMI S 787.03 Vomiting Alone 10/15/2009 WU LOZADA NOEMI S 787.91 Diarrhea 10/22/2009 Ot 250.00 DIAB AILEEN WO COMPL, TYPE II OR UNSPEC TY 10/22/2009 Ot 272.4 HYPERLIPIDEMIA NEC/NOS 10/22/2009 Ot 288.61 LYMPHOCYTOSIS (SYMPTOMATIC) 10/22/2009 Ot 296.80 BIPOLAR DISORDER, UNSPECIFIED 10/22/2009 Ot 327.23 OBSTRUCTIVE SLEEP APNEA (ADULT) (PEDIATR 10/22/2009 Ot 345.90 EPILEPSY UNSPEC W/O MENTION INTRACTABLE 10/22/2009 Ot 493.90 ASTHMA, UNSPECIFIED 10/22/2009 Ot 530.81 ESOPHAGEAL REFLUX 10/22/2009 Ot 719.49 JOINT PAIN- MULT JTS 10/22/2009 Ot 729.81 SWELLING OF LIMB 10/22/2009 Ot 780.79 OTH MALAISE FATIGUE 10/22/2009 Ot 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 10/22/2009 Ot V58.67 LONG-TERM ( CURRENT) USE OF INSULIN 10/22/2009 Ot V58.69 OTH MED,LT, CURRENT USE 10/22/2009 Ot V76.44 SCREEN MAL NEOP-PROSTATE 11/23/2009 ROSELINE LUIS PHD 345.90 Seizure Disorder 11/23/2009 ROSELINE LUIS PHD 780.52 Insomnia 11/23/2009 ROSELINE LUIS PHD 345.90 Seizure Disorder 11/23/2009 ROSELINE LUIS PHD 780.52 Insomnia 11/23/2009 345.90 Seizure Disorder 11/23/2009 780.52 Insomnia 11/23/2009 WU CHAIR, NOEMI S 345.90 Seizure Disorder 11/23/2009 WU LOZADA NOEMI S 780.52 Insomnia 11/23/2009 WU CHAIR, NOEMI S 345.90 Seizure Disorder 11/23/2009 WU LOZADA NOEMI S 780.52 Insomnia 11/23/2009 TREVOR SCHULZ DO K 345.90 Seizure Disorder 11/23/2009 TREVOR SCHULZ DO K 780.52 Insomnia 11/23/2009 345.90 Seizure Disorder 11/23/2009 780.52 Insomnia 11/23/2009 WU CHAIR, NOEMI S 345.90 Seizure Disorder 11/23/2009 WU LOZADA NOEMI S 780.52 Insomnia 11/23/2009 WU CHAIR, NOEMI S 345.90 Seizure Disorder 11/23/2009 WU LOZADA NOEMI S 780.52 Insomnia 11/23/2009 ROSELINE LUIS PHD 345.90 Seizure Disorder 11/23/2009 ROSELINE LUIS PHD 780.52 Insomnia 11/23/2009 345.90 Seizure Disorder 11/23/2009 780.52 Insomnia 11/23/2009 345.90 Seizure Disorder 11/23/2009 780.52 Insomnia 11/23/2009 345.90 Seizure Disorder 11/23/2009 780.52 Insomnia 11/23/2009 TREVOR SCHULZ DO K 345.90 Seizure Disorder 11/23/2009 TREVOR SCHULZ DO K 780.52 Insomnia 11/23/2009 ROSELINE LUIS PHD 345.90 Seizure Disorder 11/23/2009 ROSELINE LUIS PHD 780.52 Insomnia 11/23/2009 SCHULZ DO, TREVOR K 345.90 Seizure Disorder 11/23/2009 TREVOR SCHULZ DO K 780.52 Insomnia 11/23/2009 TIERRA LOZADA, GABBIE HOMAR 345.90 Seizure Disorder 11/23/2009 TIERRA LOZADA, GABBIE HOMAR 780.52 Insomnia 11/23/2009 YONATHAN RIOS MD 345.90 Seizure Disorder 11/23/2009 YONATHAN RIOS MD 780.52 Insomnia 11/23/2009 YONATHAN RIOS MD 345.90 Seizure Disorder 11/23/2009 YONATHAN RIOS MD 780.52 Insomnia 11/23/2009 TOBY JANE, ROSELINE Thakur 345.90 Seizure Disorder 11/23/2009 TOBY JANE, ROSELINE Thakur 780.52 Insomnia 11/23/2009 TOBY JANE, ROSELINE Thakur 345.90 Seizure Disorder 11/23/2009 TOBY JANE, ROSELINE Thakur 780.52 Insomnia 11/23/2009 WU LOZADA, NOEMI S 345.90 Seizure Disorder 11/23/2009 WU LOZADA, NOEMI S 780.52 Insomnia 11/23/2009 TOBY JANE, ROSELINE Thakur 345.90 Seizure Disorder 11/23/2009 TOBY JANE, ROSELINE Thakur 780.52 Insomnia 11/23/2009 YONATHAN RIOS MD 345.90 Seizure Disorder 11/23/2009 YONATHAN RIOS MD 780.52 Insomnia 11/23/2009 WU CHAIR, NOEMI S 345.90 Seizure Disorder 11/23/2009 WU CHAIR, NOEMI S 780.52 Insomnia 11/23/2009 WU CHAIR, NOEMI S 345.90 Seizure Disorder 11/23/2009 WU LOZADA, NOEMI S 780.52 Insomnia 11/23/2009 TIERRA LOZADA GABBIE HOMAR 345.90 Seizure Disorder 11/23/2009 TIERRA LOZADA GABBIE HOMAR 780.52 Insomnia 11/23/2009 TOBY JANE, ROSELINE Thakur 345.90 Seizure Disorder 11/23/2009 TOBY JANE, ROSELINE Thakur 780.52 Insomnia 11/23/2009 TOBY JANE, ROSELINE Thakur 345.90 Seizure Disorder 11/23/2009 ROSELINE LUIS PHD 780.52 Insomnia 11/23/2009 YONATHAN RIOS MD 345.90 Seizure Disorder 11/23/2009 YONATHAN RIOS MD 780.52 Insomnia 11/23/2009 ROSELINE LUIS PHD 345.90 Seizure Disorder 11/23/2009 ROSELINE LUIS PHD 780.52 Insomnia 11/23/2009 TIERRA LOZADA GABBIE HOMAR 345.90 Seizure Disorder 11/23/2009 TIERRA LOZADA GABBIE HOMAR 780.52 Insomnia 11/23/2009 SCHULZ DO, TREVOR K 345.90 Seizure Disorder 11/23/2009 SCHULZ DO, TREVOR K 780.52 Insomnia 11/23/2009 JOSE WASHBURN APRNA S 345.90 Seizure Disorder 11/23/2009 NOEMI WASHBURN APRN S 780.52 Insomnia 11/23/2009 ROSELINE LUIS PHD 345.90 Seizure Disorder 11/23/2009 ROSELINE LUIS PHD 780.52 Insomnia 11/23/2009 ROSELINE LUIS PHD 345.90 Seizure Disorder 11/23/2009 ROSELINE LUIS PHD 780.52 Insomnia 11/23/2009 TIERAR LOZADA GABBIE HOMAR 345.90 Seizure Disorder 11/23/2009 TIERRA LOZADA GABBIE HOMAR 780.52 Insomnia 11/23/2009 ROSELINE LUIS PHD 345.90 Seizure Disorder 11/23/2009 ROSELINE LUIS PHD 780.52 Insomnia 11/23/2009 YONATHAN RIOS MD 345.90 Seizure Disorder 11/23/2009 YONATHAN RIOS MD 780.52 Insomnia 11/23/2009 OWEN LOZADA LESLY R 345.90 Seizure Disorder 11/23/2009 OWEN LOZADA LESLY R 780.52 Insomnia 11/23/2009 ROSELINE LUIS PHD 345.90 Seizure Disorder 11/23/2009 ROSELINE LUIS PHD 780.52 Insomnia 11/23/2009 JENNIFER LOZADA ARIANE R 345.90 Seizure Disorder 11/23/2009 JENNIFER LOZADA ARIANE R 780.52 Insomnia 11/23/2009 ROSELINE LUIS PHD 345.90 Seizure Disorder 11/23/2009 ROSELINE LUIS PHD 780.52 Insomnia 11/23/2009 SP CARR APRN 345.90 Seizure Disorder 11/23/2009 SP CARR APRN 780.52 Insomnia 11/23/2009 SCHULZ DO, TREVOR K 345.90 Seizure Disorder 11/23/2009 SCHULZ DO, TREVOR K 780.52 Insomnia 11/23/2009 ROSELINE LUIS PHD 345.90 Seizure Disorder 11/23/2009 TOBY JANE, ROSELINE Thakur 780.52 Insomnia 11/23/2009 YONATHAN RIOS MD 345.90 Seizure Disorder 11/23/2009 YONATHAN RIOS MD 780.52 Insomnia 11/23/2009 TOBY JANE, ROSELINE Thakur 345.90 Seizure Disorder 11/23/2009 TOBY JANE, ROSELINE Thakur 780.52 Insomnia 11/23/2009 LOYD ROBINS, NADINE Baum 345.90 Seizure Disorder 11/23/2009 NADINE HARP MD 780.52 Insomnia 11/23/2009 WU CHAIR, NOEMI S 345.90 Seizure Disorder 11/23/2009 WU CHAIR, NOEMI S 780.52 Insomnia 11/23/2009 TOBY JANE, ROSELINE Thakur 345.90 Seizure Disorder 11/23/2009 TOBY JANE, ROSELINE Thakur 780.52 Insomnia 11/23/2009 WU CHAIR, NOEMI S 345.90 Seizure Disorder 11/23/2009 WU CHAIR, NOEMI S 780.52 Insomnia 11/23/2009 YONATHAN RIOS MD 345.90 Seizure Disorder 11/23/2009 YONATHAN RIOS MD 780.52 Insomnia 11/23/2009 WU CHAIR, NOEMI S 345.90 Seizure Disorder 11/23/2009 WU CHAIR, NOEMI S 780.52 Insomnia 11/23/2009 WU CHAIR, NOEMI S 345.90 Seizure Disorder 11/23/2009 WU CHAIR, NOEMI S 780.52 Insomnia 11/23/2009 TOBY JANE, ROSELINE Thakur 345.90 Seizure Disorder 11/23/2009 TOBY JANE, ROSELINE Thakur 780.52 Insomnia 11/23/2009 LEXI FRENCH TEACHER, ALYSE M 345.90 Seizure Disorder 11/23/2009 LEXI FRENCH TEACHER, ALYSE M 780.52 Insomnia 11/23/2009 LEXI FRENCH TEACHER, ALYSE M 345.90 Seizure Disorder 11/23/2009 LEXI FRENCH TEACHER, ALYSE M 780.52 Insomnia 11/23/2009 WU CHAIR, NOEMI S 345.90 Seizure Disorder 11/23/2009 WU CHAIR, NOEMI S 780.52 Insomnia 11/23/2009 WU CHAIR, NOEMI S 345.90 Seizure Disorder 11/23/2009 WU CHAIR, NOEMI S 780.52 Insomnia 11/23/2009 ROSEILNE LUIS PHD 345.90 Seizure Disorder 11/23/2009 ROSELINE LUIS PHD 780.52 Insomnia 11/23/2009 NOEMI WASHBURN APRN 345.90 Seizure Disorder 11/23/2009 DIPTI WASHBURN APRNNDA S 780.52 Insomnia 12/08/2009 Ot 250.00 DIAB AILEEN WO COMPL, TYPE II OR UNSPEC TY 12/08/2009 Ot 311 DEPRESSIVE DISORDER NEC 12/08/2009 Ot 530.81 ESOPHAGEAL REFLUX 12/08/2009 Ot 723.1 CERVICALGIA 12/08/2009 Ot 729.5 PAIN IN LIMB 12/08/2009 Ot V57.1 PHYSICAL THERAPY NEC 01/07/2010 ROSELINE LUIS PHD 216.4 Benign Neoplasm Of Scalp And Skin Of Neck 01/07/2010 ROSELINE LUIS PHD 238.2 Neoplasm Of Uncertain Behavior Of Skin 01/07/2010 ROSELINE LUIS PHD 216.4 Benign Neoplasm Of Scalp And Skin Of Neck 01/07/2010 ROSELINE LUIS PHD 238.2 Neoplasm Of Uncertain Behavior Of Skin 01/07/2010 216.4 Benign Neoplasm Of Scalp And Skin Of Neck 01/07/2010 238.2 Neoplasm Of Uncertain Behavior Of Skin 01/07/2010 NOEMI WASHBURN APRN S 216.4 Benign Neoplasm Of Scalp And Skin Of Neck 01/07/2010 DIPTI WASHBURN APRNNDA S 238.2 Neoplasm Of Uncertain Behavior Of Skin 01/07/2010 DIPTI WASHBURN APRNNDA S 216.4 Benign Neoplasm Of Scalp And Skin Of Neck 01/07/2010 DIPTI WASHBURN APRNNDA S 238.2 Neoplasm Of Uncertain Behavior Of Skin 01/07/2010 SCHULZ DO, TREVOR K 216.4 Benign Neoplasm Of Scalp And Skin Of Neck 01/07/2010 SCHULZ DO, TREVOR K 238.2 Neoplasm Of Uncertain Behavior Of Skin 01/07/2010 216.4 Benign Neoplasm Of Scalp And Skin Of Neck 01/07/2010 238.2 Neoplasm Of Uncertain Behavior Of Skin 01/07/2010 DIPTI WASHBURN APRNNDA S 216.4 Benign Neoplasm Of Scalp And Skin Of Neck 01/07/2010 DIPTI WASHBURN APRNNDA S 238.2 Neoplasm Of Uncertain Behavior Of Skin 01/07/2010 DIPTI WASHBURN APRNNDA S 216.4 Benign Neoplasm Of Scalp And Skin Of Neck 01/07/2010 NOEMI WASHBURN APRN S 238.2 Neoplasm Of Uncertain Behavior Of Skin 01/07/2010 ROSELINE LUIS PHD 216.4 Benign Neoplasm Of Scalp And Skin Of Neck 01/07/2010 ROSELINE LUIS PHD 238.2 Neoplasm Of Uncertain Behavior Of Skin 01/07/2010 216.4 Benign Neoplasm Of Scalp And Skin Of Neck 01/07/2010 238.2 Neoplasm Of Uncertain Behavior Of Skin 01/07/2010 216.4 Benign Neoplasm Of Scalp And Skin Of Neck 01/07/2010 238.2 Neoplasm Of Uncertain Behavior Of Skin 01/07/2010 216.4 Benign Neoplasm Of Scalp And Skin Of Neck 01/07/2010 238.2 Neoplasm Of Uncertain Behavior Of Skin 01/07/2010 TREVOR SCHULZ DO K 216.4 Benign Neoplasm Of Scalp And Skin Of Neck 01/07/2010 TREVOR SCHULZ DO K 238.2 Neoplasm Of Uncertain Behavior Of Skin 01/07/2010 ROSELINE LUIS PHD 216.4 Benign Neoplasm Of Scalp And Skin Of Neck 01/07/2010 ROSELINE LUIS PHD 238.2 Neoplasm Of Uncertain Behavior Of Skin 01/07/2010 LURDES SCHULZ DOA K 216.4 Benign Neoplasm Of Scalp And Skin Of Neck 01/07/2010 LURDES SCHULZ DOA K 238.2 Neoplasm Of Uncertain Behavior Of Skin 01/07/2010 TIERRA LOZADA GABBIE GRAF 216.4 Benign Neoplasm Of Scalp And Skin Of Neck 01/07/2010 TIERRA LOZADA GABBIE GRAF 238.2 Neoplasm Of Uncertain Behavior Of Skin 01/07/2010 YONATHAN RIOS MD 216.4 Benign Neoplasm Of Scalp And Skin Of Neck 01/07/2010 YONATHAN RIOS MD 238.2 Neoplasm Of Uncertain Behavior Of Skin 01/07/2010 YONATHAN RIOS MD 216.4 Benign Neoplasm Of Scalp And Skin Of Neck 01/07/2010 YONATHAN RIOS MD 238.2 Neoplasm Of Uncertain Behavior Of Skin 01/07/2010 ROSELINE LUIS PHD 216.4 Benign Neoplasm Of Scalp And Skin Of Neck 01/07/2010 ROSELINE LUIS PHD 238.2 Neoplasm Of Uncertain Behavior Of Skin 01/07/2010 ROSELINE LUIS PHD 216.4 Benign Neoplasm Of Scalp And Skin Of Neck 01/07/2010 ROSELINE LUIS PHD 238.2 Neoplasm Of Uncertain Behavior Of Skin 01/07/2010 WU LOZADA, NOEMI S 216.4 Benign Neoplasm Of Scalp And Skin Of Neck 01/07/2010 DIPTI WASHBURN APRNNDA S 238.2 Neoplasm Of Uncertain Behavior Of Skin 01/07/2010 ROSELINE LUIS PHD 216.4 Benign Neoplasm Of Scalp And Skin Of Neck 01/07/2010 ROSELINE LUIS PHD 238.2 Neoplasm Of Uncertain Behavior Of Skin 01/07/2010 YONATHAN RIOS MD 216.4 Benign Neoplasm Of Scalp And Skin Of Neck 01/07/2010 YONATHAN RIOS MD 238.2 Neoplasm Of Uncertain Behavior Of Skin 01/07/2010 WU CHAIR, NOEMI S 216.4 Benign Neoplasm Of Scalp And Skin Of Neck 01/07/2010 WU CHAIR, NOEMI S 238.2 Neoplasm Of Uncertain Behavior Of Skin 01/07/2010 WU LOZADA NOEMI S 216.4 Benign Neoplasm Of Scalp And Skin Of Neck 01/07/2010 WU LOZADA NOEMI S 238.2 Neoplasm Of Uncertain Behavior Of Skin 01/07/2010 GABBIE MAYORGA APRN 216.4 Benign Neoplasm Of Scalp And Skin Of Neck 01/07/2010 GABBIE MAYORGA APRN 238.2 Neoplasm Of Uncertain Behavior Of Skin 01/07/2010 ROSELINE LUIS PHD 216.4 Benign Neoplasm Of Scalp And Skin Of Neck 01/07/2010 ROSELINE LUIS PHD 238.2 Neoplasm Of Uncertain Behavior Of Skin 01/07/2010 ROSELINE LUIS PHD 216.4 Benign Neoplasm Of Scalp And Skin Of Neck 01/07/2010 ROSELINE LUIS PHD 238.2 Neoplasm Of Uncertain Behavior Of Skin 01/07/2010 YONATHAN RIOS MD 216.4 Benign Neoplasm Of Scalp And Skin Of Neck 01/07/2010 YONATHAN RIOS MD 238.2 Neoplasm Of Uncertain Behavior Of Skin 01/07/2010 ROSELINE LUIS PHD 216.4 Benign Neoplasm Of Scalp And Skin Of Neck 01/07/2010 ROSELINE LUIS PHD 238.2 Neoplasm Of Uncertain Behavior Of Skin 01/07/2010 GABBIE MAYORGA APRN 216.4 Benign Neoplasm Of Scalp And Skin Of Neck 01/07/2010 GABBIE MAYORGA APRN 238.2 Neoplasm Of Uncertain Behavior Of Skin 01/07/2010 SCHULZ DO, TREVOR K 216.4 Benign Neoplasm Of Scalp And Skin Of Neck 01/07/2010 SCHULZ DO, TREVOR K 238.2 Neoplasm Of Uncertain Behavior Of Skin 01/07/2010 NOEMI WASHBURN APRN S 216.4 Benign Neoplasm Of Scalp And Skin Of Neck 01/07/2010 NOEMI WASHBURN APRN S 238.2 Neoplasm Of Uncertain Behavior Of Skin 01/07/2010 ROSELINE LUIS PHD 216.4 Benign Neoplasm Of Scalp And Skin Of Neck 01/07/2010 ROSELINE LUIS PHD 238.2 Neoplasm Of Uncertain Behavior Of Skin 01/07/2010 ROSELINE LUIS PHD 216.4 Benign Neoplasm Of Scalp And Skin Of Neck 01/07/2010 ROSELINE LUIS PHD 238.2 Neoplasm Of Uncertain Behavior Of Skin 01/07/2010 GABBIE MAYORGA APRN 216.4 Benign Neoplasm Of Scalp And Skin Of Neck 01/07/2010 GABBIE MAYORGA APRN 238.2 Neoplasm Of Uncertain Behavior Of Skin 01/07/2010 ROSELINE LUIS PHD 216.4 Benign Neoplasm Of Scalp And Skin Of Neck 01/07/2010 ROSELINE LUIS PHD 238.2 Neoplasm Of Uncertain Behavior Of Skin 01/07/2010 YONATHAN RIOS MD 216.4 Benign Neoplasm Of Scalp And Skin Of Neck 01/07/2010 YONATHAN RIOS MD 238.2 Neoplasm Of Uncertain Behavior Of Skin 01/07/2010 LESLY WEAVER APRN R 216.4 Benign Neoplasm Of Scalp And Skin Of Neck 01/07/2010 LESLY WEAVER APRN R 238.2 Neoplasm Of Uncertain Behavior Of Skin 01/07/2010 ROSELINE LUIS PHD 216.4 Benign Neoplasm Of Scalp And Skin Of Neck 01/07/2010 ROSELINE LUIS PHD 238.2 Neoplasm Of Uncertain Behavior Of Skin 01/07/2010 ARIANE RODRIGUEZ APRN R 216.4 Benign Neoplasm Of Scalp And Skin Of Neck 01/07/2010 ARIANE RODRIGUEZ APRN R 238.2 Neoplasm Of Uncertain Behavior Of Skin 01/07/2010 ROSELINE LUIS PHD 216.4 Benign Neoplasm Of Scalp And Skin Of Neck 01/07/2010 ROSELINE LUIS PHD 238.2 Neoplasm Of Uncertain Behavior Of Skin 01/07/2010 SP CARR APRN 216.4 Benign Neoplasm Of Scalp And Skin Of Neck 01/07/2010 SP CARR APRN 238.2 Neoplasm Of Uncertain Behavior Of Skin 01/07/2010 SCHULZ DO TREVOR K 216.4 Benign Neoplasm Of Scalp And Skin Of Neck 01/07/2010 SCHULZ DO, TREVOR K 238.2 Neoplasm Of Uncertain Behavior Of Skin 01/07/2010 ROSELINE LUIS PHD 216.4 Benign Neoplasm Of Scalp And Skin Of Neck 01/07/2010 ROSELINE LUIS PHD 238.2 Neoplasm Of Uncertain Behavior Of Skin 01/07/2010 YONATHAN RIOS MD 216.4 Benign Neoplasm Of Scalp And Skin Of Neck 01/07/2010 YONATHAN RIOS MD 238.2 Neoplasm Of Uncertain Behavior Of Skin 01/07/2010 ROSELINE LUIS PHD 216.4 Benign Neoplasm Of Scalp And Skin Of Neck 01/07/2010 ROSELINE LUIS PHD 238.2 Neoplasm Of Uncertain Behavior Of Skin 01/07/2010 NADINE HARP MD 216.4 Benign Neoplasm Of Scalp And Skin Of Neck 01/07/2010 NADINE HARP MD 238.2 Neoplasm Of Uncertain Behavior Of Skin 01/07/2010 DIPTI WASHBURN APRNNDA S 216.4 Benign Neoplasm Of Scalp And Skin Of Neck 01/07/2010 WU LOZADA, NOEMI S 238.2 Neoplasm Of Uncertain Behavior Of Skin 01/07/2010 ROSELINE LUIS PHD 216.4 Benign Neoplasm Of Scalp And Skin Of Neck 01/07/2010 ROSELINE LUIS PHD 238.2 Neoplasm Of Uncertain Behavior Of Skin 01/07/2010 WU LOZADA, NOEMI S 216.4 Benign Neoplasm Of Scalp And Skin Of Neck 01/07/2010 WU LOZADA, NOEMI S 238.2 Neoplasm Of Uncertain Behavior Of Skin 01/07/2010 YONATHAN RIOS MD 216.4 Benign Neoplasm Of Scalp And Skin Of Neck 01/07/2010 YONATHAN RIOS MD 238.2 Neoplasm Of Uncertain Behavior Of Skin 01/07/2010 WU LOZADA, NOEMI S 216.4 Benign Neoplasm Of Scalp And Skin Of Neck 01/07/2010 WU LOZADA, NOEMI S 238.2 Neoplasm Of Uncertain Behavior Of Skin 01/07/2010 WU LOZADA NOEMI S 216.4 Benign Neoplasm Of Scalp And Skin Of Neck 01/07/2010 WU LOZADA, NOEMI S 238.2 Neoplasm Of Uncertain Behavior Of Skin 01/07/2010 ROSELINE LUIS PHD 216.4 Benign Neoplasm Of Scalp And Skin Of Neck 01/07/2010 ROSELINE LUIS PHD 238.2 Neoplasm Of Uncertain Behavior Of Skin 01/07/2010 LEXI FRENCH TEACHER, ALYSE M 216.4 Benign Neoplasm Of Scalp And Skin Of Neck 01/07/2010 LEXI FRENCH TEACHER, ALYSE M 238.2 Neoplasm Of Uncertain Behavior Of Skin 01/07/2010 LEXI FRENCH TEACHER, ALYSE M 216.4 Benign Neoplasm Of Scalp And Skin Of Neck 01/07/2010 LEXI FRENCH TEACHER, ALYSE M 238.2 Neoplasm Of Uncertain Behavior Of Skin 01/07/2010 WU CHAIR, NOEMI S 216.4 Benign Neoplasm Of Scalp And Skin Of Neck 01/07/2010 WU CHAIR, NOEMI S 238.2 Neoplasm Of Uncertain Behavior Of Skin 01/07/2010 WU ARROYON, NOEMI S 216.4 Benign Neoplasm Of Scalp And Skin Of Neck 01/07/2010 WU CHAIR, NOEMI S 238.2 Neoplasm Of Uncertain Behavior Of Skin 01/07/2010 ROSELINE LUIS PHD 216.4 Benign Neoplasm Of Scalp And Skin Of Neck 01/07/2010 ROSELINE LUIS PHD 238.2 Neoplasm Of Uncertain Behavior Of Skin 01/07/2010 WU LOZADA, NOEMI S 216.4 Benign Neoplasm Of Scalp And Skin Of Neck 01/07/2010 WU LOZADA, NOEMI S 238.2 Neoplasm Of Uncertain Behavior Of Skin 01/21/2010 ROSELINE LUIS PHD 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 01/21/2010 ROSELINE LUIS PHD 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 01/21/2010 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 01/21/2010 DIPTI WASHBURN APRNNDA S 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 01/21/2010 DIPTI WASHBURN APRNNDA S 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 01/21/2010 TREVOR SCHULZ DO 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 01/21/2010 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 01/21/2010 DIPTI WASHBURN APRNNDA S 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 01/21/2010 WU LOZADA, NOEMI S 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 01/21/2010 ROSELINE LUIS PHD 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 01/21/2010 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 01/21/2010 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 01/21/2010 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 01/21/2010 SCHULZ DO, TREVOR K 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 01/21/2010 ROSELINE LUIS PHD 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 01/21/2010 SCHULZ DO, TREVOR K 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 01/21/2010 GABBIE MAYORGA APRN 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 01/21/2010 YONATHAN RIOS MD 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 01/21/2010 YONATHAN RIOS MD 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 01/21/2010 ROSELINE LUIS PHD 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 01/21/2010 ROSELINE LUIS PHD 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 01/21/2010 DIPTI WASHBURN APRNNDA S 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 01/21/2010 ROSELINE LUIS PHD 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 01/21/2010 YONATHAN RIOS MD 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 01/21/2010 DIPTI WASHBURN APRNNDA S 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 01/21/2010 WU LOZADA NOEMI S 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 01/21/2010 GABBIE MAYORGA APRN 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 01/21/2010 ROSELINE LUIS PHD 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 01/21/2010 ROSELINE LUIS PHD 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 01/21/2010 YONATHAN RIOS MD 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 01/21/2010 ROSELINE LUIS PHD 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 01/21/2010 GABBIE MAYORGA APRN 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 01/21/2010 SCHULZ DO, TREVOR K 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 01/21/2010 DIPTI WASHBURN APRNNDA S 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 01/21/2010 TOBY JANE, ROSELINE Thakur 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 01/21/2010 TOBY JANE, ROSELINE Thakur 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 01/21/2010 TIERRA LOZADA GABBIE GRAF 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 01/21/2010 TOBY JANE, ROSELINE Thakur 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 01/21/2010 YONATHAN RIOS MD 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 01/21/2010 LESLY WEAVER APRN R 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 01/21/2010 TOBY PHD, ROSELINE Thakur 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 01/21/2010 ARIANE RODRIGUEZ APRN R 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 01/21/2010 TOBY JANE, ROSELINE Thakur 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 01/21/2010 SP CARR APRN 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 01/21/2010 TREVOR SCHULZ DO 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 01/21/2010 TOBY JANE, ROSELINE Thakur 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 01/21/2010 YONATHAN RIOS MD 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 01/21/2010 TOBY JANE, ROSELINE Thakur 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 01/21/2010 NADINE HARP MD 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 01/21/2010 JOSE WASHBURN APRNA S 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 01/21/2010 TOBY JANE, ROSELINE Thakur 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 01/21/2010 DIPTI WASHBURN APRNNDA S 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 01/21/2010 YONATHAN RIOS MD 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 01/21/2010 WU LOZADA NOEMI S 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 01/21/2010 WU LOZADA NOEMI S 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 01/21/2010 ROSELINE LUIS PHD 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 01/21/2010 ALYSE LIMA 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 01/21/2010 ALYSE LIMA 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 01/21/2010 WU CHAIR, NOEMI S 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 01/21/2010 WU LOZADA, NOEMI S 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 01/21/2010 ROSELINE LUIS PHD 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 01/21/2010 WU LOZADA, NOEMI S 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 03/02/2010 Ot 250.00 DIAB AILEEN WO COMPL, TYPE II OR UNSPEC TY 03/02/2010 Ot 466.0 ACUTE BRONCHITIS 03/02/2010 Ot 786.05 SHORTNESS OF BREATH 03/02/2010 Ot V58.67 LONG-TERM ( CURRENT) USE OF INSULIN 03/03/2010 ROSELINE LUIS PHD 780.09 Alteration Of Consciousness, Other 03/03/2010 ROSELINE LUIS PHD 780.97 Altered Mental Status 03/03/2010 ROSELINE LUIS PHD 780.09 Alteration Of Consciousness, Other 03/03/2010 ROSELINE LUIS PHD 780.97 Altered Mental Status 03/03/2010 780.09 Alteration Of Consciousness, Other 03/03/2010 780.97 Altered Mental Status 03/03/2010 WU ARROYON, NOEMI S 780.09 Alteration Of Consciousness, Other 03/03/2010 WU CHAIR, NOEMI S 780.97 Altered Mental Status 03/03/2010 WU ARROYON, NOEMI S 780.09 Alteration Of Consciousness, Other 03/03/2010 WU CHAIR, NOEMI S 780.97 Altered Mental Status 03/03/2010 SCHULZ DO, TREVOR K 780.09 Alteration Of Consciousness, Other 03/03/2010 SCHULZ DO, TREVOR K 780.97 Altered Mental Status 03/03/2010 780.09 Alteration Of Consciousness, Other 03/03/2010 780.97 Altered Mental Status 03/03/2010 WU CHAIR, NOEMI S 780.09 Alteration Of Consciousness, Other 03/03/2010 WU CHAIR, NOEMI S 780.97 Altered Mental Status 03/03/2010 WU CHAIR, NOEMI S 780.09 Alteration Of Consciousness, Other 03/03/2010 WU ARROYON, NOEMI S 780.97 Altered Mental Status 03/03/2010 ROSELINE LUIS PHD 780.09 Alteration Of Consciousness, Other 03/03/2010 ROSELINE LUIS PHD 780.97 Altered Mental Status 03/03/2010 780.09 Alteration Of Consciousness, Other 03/03/2010 780.97 Altered Mental Status 03/03/2010 780.09 Alteration Of Consciousness, Other 03/03/2010 780.97 Altered Mental Status 03/03/2010 780.09 Alteration Of Consciousness, Other 03/03/2010 780.97 Altered Mental Status 03/03/2010 SCHULZ DO, TREVOR K 780.09 Alteration Of Consciousness, Other 03/03/2010 SCHULZ DO, TREVOR K 780.97 Altered Mental Status 03/03/2010 TOBY JANE, ROSELINE Thakur 780.09 Alteration Of Consciousness, Other 03/03/2010 TOBY JANE, ROSELINE Thakur 780.97 Altered Mental Status 03/03/2010 SCHULZ DO, TREVOR K 780.09 Alteration Of Consciousness, Other 03/03/2010 SCHULZ DO, TREVOR K 780.97 Altered Mental Status 03/03/2010 GABBIE MAYORGA APRN 780.09 Alteration Of Consciousness, Other 03/03/2010 TIERRA LOZADA GABBIE HOMAR 780.97 Altered Mental Status 03/03/2010 YONATHAN RIOS MD 780.09 Alteration Of Consciousness, Other 03/03/2010 YONATHAN RIOS MD 780.97 Altered Mental Status 03/03/2010 YONATHAN RIOS MD 780.09 Alteration Of Consciousness, Other 03/03/2010 YONATHAN RIOS MD 780.97 Altered Mental Status 03/03/2010 TOBY JANE, ROSELINE Thakur 780.09 Alteration Of Consciousness, Other 03/03/2010 TOBY JANE, ROSELINE Thakur 780.97 Altered Mental Status 03/03/2010 TOBY JANE, ROSELINE Thakur 780.09 Alteration Of Consciousness, Other 03/03/2010 TOBY JANE, ROSELINE Thakur 780.97 Altered Mental Status 03/03/2010 NOEMI WASHBURN APRN 780.09 Alteration Of Consciousness, Other 03/03/2010 NOEMI WASHBURN APRN 780.97 Altered Mental Status 03/03/2010 OTBY JANE, ROSELINE Thakur 780.09 Alteration Of Consciousness, Other 03/03/2010 TOBY JANE, ROSELINE Thakur 780.97 Altered Mental Status 03/03/2010 YONATHAN RIOS MD 780.09 Alteration Of Consciousness, Other 03/03/2010 YONATHAN RIOS MD 780.97 Altered Mental Status 03/03/2010 WU CHAIR, NOEMI S 780.09 Alteration Of Consciousness, Other 03/03/2010 WU CHAIR, NOEMI S 780.97 Altered Mental Status 03/03/2010 WU CHAIR, NOEMI S 780.09 Alteration Of Consciousness, Other 03/03/2010 WU CHAIR, NOEMI S 780.97 Altered Mental Status 03/03/2010 MAYORGA CHAIR, GABBIE HOMAR 780.09 Alteration Of Consciousness, Other 03/03/2010 MAYORGA CHAIR, GABBIE HOMAR 780.97 Altered Mental Status 03/03/2010 TOBY JANE, ROSELINE Thakur 780.09 Alteration Of Consciousness, Other 03/03/2010 TOBY JANE, ROSELINE Thakur 780.97 Altered Mental Status 03/03/2010 TOBY JANE, ROSELINE Thakur 780.09 Alteration Of Consciousness, Other 03/03/2010 TOBY JANE, ROSELINE Thakur 780.97 Altered Mental Status 03/03/2010 YONATHAN RIOS MD 780.09 Alteration Of Consciousness, Other 03/03/2010 YONATHAN RIOS MD 780.97 Altered Mental Status 03/03/2010 TOBY JANE, ROSELINE Thakur 780.09 Alteration Of Consciousness, Other 03/03/2010 TOBY JANE, ROSELINE Thakur 780.97 Altered Mental Status 03/03/2010 MAYORGA CHAIR, GABBIE HOMAR 780.09 Alteration Of Consciousness, Other 03/03/2010 TIERRA CHAIR, GABBIE GRAF 780.97 Altered Mental Status 03/03/2010 SCHULZ DO, TREVOR K 780.09 Alteration Of Consciousness, Other 03/03/2010 SCHULZ DO, TREVOR K 780.97 Altered Mental Status 03/03/2010 WU CHAIR, NOEMI S 780.09 Alteration Of Consciousness, Other 03/03/2010 WU CHAIR, NOEMI S 780.97 Altered Mental Status 03/03/2010 TOBY JANE, ROSELINE Thakur 780.09 Alteration Of Consciousness, Other 03/03/2010 TOBY JANE, ROSELINE Thakur 780.97 Altered Mental Status 03/03/2010 TOBY JANE, ROSELINE Thakur 780.09 Alteration Of Consciousness, Other 03/03/2010 TOBY JANE, ROSELINE Thakur 780.97 Altered Mental Status 03/03/2010 MAYORGA CHAIR, GABBIE HOMAR 780.09 Alteration Of Consciousness, Other 03/03/2010 MAYORGA CHAIR, GABBIE GRAF 780.97 Altered Mental Status 03/03/2010 TOBY JANE, ROSELINE Thakur 780.09 Alteration Of Consciousness, Other 03/03/2010 TOBY JANE, ROSELINE Thakur 780.97 Altered Mental Status 03/03/2010 YONATHAN RIOS MD 780.09 Alteration Of Consciousness, Other 03/03/2010 YONATHAN RIOS MD 780.97 Altered Mental Status 03/03/2010 OWEN CHAIR, LESLY R 780.09 Alteration Of Consciousness, Other 03/03/2010 OWEN ARROYON, LESLY R 780.97 Altered Mental Status 03/03/2010 TOBY PHD, ROSELINE D 780.09 Alteration Of Consciousness, Other 03/03/2010 TOBY JAEN, ROSELINE Thakur 780.97 Altered Mental Status 03/03/2010 JENNIFER ARROYON, ARIANE R 780.09 Alteration Of Consciousness, Other 03/03/2010 JENNIFER ARROYON, ARIANE R 780.97 Altered Mental Status 03/03/2010 TOBY JANE, ROSELINE Thakur 780.09 Alteration Of Consciousness, Other 03/03/2010 TOBY JANE, ROSELINE Thakur 780.97 Altered Mental Status 03/03/2010 SP CARR APRN 780.09 Alteration Of Consciousness, Other 03/03/2010 SP CARR APRN 780.97 Altered Mental Status 03/03/2010 SCHULZ DO, TREVOR K 780.09 Alteration Of Consciousness, Other 03/03/2010 SCHULZ DO, TREVOR K 780.97 Altered Mental Status 03/03/2010 TOBY JANE, ROSELINE Thakur 780.09 Alteration Of Consciousness, Other 03/03/2010 TOBY JANE, ROSELINE Thakur 780.97 Altered Mental Status 03/03/2010 YONATHAN RIOS MD 780.09 Alteration Of Consciousness, Other 03/03/2010 YONATHAN RIOS MD 780.97 Altered Mental Status 03/03/2010 TOBY JANE, ROSELINE Thakur 780.09 Alteration Of Consciousness, Other 03/03/2010 TOBY JNAE, ROSELINE Thakur 780.97 Altered Mental Status 03/03/2010 NADINE HARP MD 780.09 Alteration Of Consciousness, Other 03/03/2010 NADINE HARP MD 780.97 Altered Mental Status 03/03/2010 WU LOZADA, NOEMI S 780.09 Alteration Of Consciousness, Other 03/03/2010 WU LOZADA, NOEMI S 780.97 Altered Mental Status 03/03/2010 TOBY JANE, ROSELINE Thakur 780.09 Alteration Of Consciousness, Other 03/03/2010 TOBY JANE, ROSELINE Thakur 780.97 Altered Mental Status 03/03/2010 WU CHAIR, NOEMI S 780.09 Alteration Of Consciousness, Other 03/03/2010 WU CHAIR, NOEMI S 780.97 Altered Mental Status 03/03/2010 BLANCA ROBINS, YONATHAN 780.09 Alteration Of Consciousness, Other 03/03/2010 BLANCA ROBINS, YONATHAN 780.97 Altered Mental Status 03/03/2010 WU CHAIR, NOEMI S 780.09 Alteration Of Consciousness, Other 03/03/2010 WU CHAIR, NOEMI S 780.97 Altered Mental Status 03/03/2010 WU CHAIR, NOEMI S 780.09 Alteration Of Consciousness, Other 03/03/2010 WU CHAIR, NOEMI S 780.97 Altered Mental Status 03/03/2010 TOBY JANE, ROSELINE Thakur 780.09 Alteration Of Consciousness, Other 03/03/2010 TOBY JANE, ROSELINE Thakur 780.97 Altered Mental Status 03/03/2010 LEXI FRENCH TEACHER, ALYSE M 780.09 Alteration Of Consciousness, Other 03/03/2010 LEXI FRENCH TEACHER, ALYSE M 780.97 Altered Mental Status 03/03/2010 LEXI FRENCH TEACHER, ALYSE M 780.09 Alteration Of Consciousness, Other 03/03/2010 LEXI FRENCH TEACHER, ALYSE M 780.97 Altered Mental Status 03/03/2010 WU CHAIR, NOEMI S 780.09 Alteration Of Consciousness, Other 03/03/2010 WU CHAIR, NOEMI S 780.97 Altered Mental Status 03/03/2010 WU CHAIR, NOEMI S 780.09 Alteration Of Consciousness, Other 03/03/2010 WU CHAIR, NOEMI S 780.97 Altered Mental Status 03/03/2010 TOBY JANE, ROSELINE Thakur 780.09 Alteration Of Consciousness, Other 03/03/2010 TOBY JANE, ROSELINE Thakur 780.97 Altered Mental Status 03/03/2010 WU CHAIR, NOEMI S 780.09 Alteration Of Consciousness, Other 03/03/2010 WU CHAIR, NOEMI S 780.97 Altered Mental Status 03/07/2010 Ot 250.02 DIAB AILEEN WO COMPL, TYPE II OR UNSPEC TY 03/07/2010 Ot 272.4 HYPERLIPIDEMIA NEC/NOS 03/07/2010 Ot 276.2 ACIDOSIS 03/07/2010 Ot 276.8 HYPOPOTASSEMIA 03/07/2010 Ot 278.01 MORBID OBESITY 03/07/2010 Ot 311 DEPRESSIVE DISORDER NEC 03/07/2010 Ot 327.23 OBSTRUCTIVE SLEEP APNEA (ADULT) (PEDIATR 03/07/2010 Ot 345.90 EPILEPSY UNSPEC W/O MENTION INTRACTABLE 03/07/2010 Ot 402.91 HYPERTENSIVE HRT DIS W HRT FAILURE NOS 03/07/2010 Ot 414.01 CORONARY ATHEROSCLEROSIS OF [place] CORON 03/07/2010 Ot 428.0 CONGESTIVE HEART FAILURE NOS 03/07/2010 Ot 428.32 CHRONIC DIASTOLIC HRT FAILURE 03/07/2010 Ot 530.81 ESOPHAGEAL REFLUX 03/07/2010 Ot 786.2 COUGH 03/07/2010 Ot V85.4 BODY MASS INDEX 40 AND OVER, ADULT 03/11/2010 ROSELINE LUIS PHD 465.9 Acute Upper Respiratory Infections Of Unspecified Site 03/11/2010 ROSELINE LUIS PHD 780.97 Mental Status Change 03/11/2010 ROSELINE LUIS PHD V40.9 Unspecified Mental Or Behavioral Problem 03/11/2010 ROSELINE LUIS PHD 465.9 Acute Upper Respiratory Infections Of Unspecified Site 03/11/2010 ROSELINE LUIS PHD 780.97 Mental Status Change 03/11/2010 ROSELINE LUIS PHD V40.9 Unspecified Mental Or Behavioral Problem 03/11/2010 465.9 Acute Upper Respiratory Infections Of Unspecified Site 03/11/2010 780.97 Mental Status Change 03/11/2010 V40.9 Unspecified Mental Or Behavioral Problem 03/11/2010 NOEMI WASHBURN APRN S 465.9 Acute Upper Respiratory Infections Of Unspecified Site 03/11/2010 NOEMI WASHBURN APRN S 780.97 Mental Status Change 03/11/2010 NOEMI WASHBURN APRN S V40.9 Unspecified Mental Or Behavioral Problem 03/11/2010 NOEMI WASHBURN APRN S 465.9 Acute Upper Respiratory Infections Of Unspecified Site 03/11/2010 DIPTI WASHBURN APRNNDA S 780.97 Mental Status Change 03/11/2010 DIPTI WASHBURN APRNNDA S V40.9 Unspecified Mental Or Behavioral Problem 03/11/2010 TREVOR SCHULZ DO 465.9 Acute Upper Respiratory Infections Of Unspecified Site 03/11/2010 SCHULZ DO, TREVOR K 780.97 Mental Status Change 03/11/2010 SCHULZ DO, TREVOR K V40.9 Unspecified Mental Or Behavioral Problem 03/11/2010 465.9 Acute Upper Respiratory Infections Of Unspecified Site 03/11/2010 780.97 Mental Status Change 03/11/2010 V40.9 Unspecified Mental Or Behavioral Problem 03/11/2010 WU CHAIR, NOEMI S 465.9 Acute Upper Respiratory Infections Of Unspecified Site 03/11/2010 WU CHAIR, NOEMI S 780.97 Mental Status Change 03/11/2010 WU CHAIR, NOEMI S V40.9 Unspecified Mental Or Behavioral Problem 03/11/2010 WU CHAIR, NOEMI S 465.9 Acute Upper Respiratory Infections Of Unspecified Site 03/11/2010 WU CHAIR, NOEMI S 780.97 Mental Status Change 03/11/2010 WU CHAIR, NOEMI S V40.9 Unspecified Mental Or Behavioral Problem 03/11/2010 ROSELINE LUIS PHD 465.9 Acute Upper Respiratory Infections Of Unspecified Site 03/11/2010 ROSELINE LUIS PHD 780.97 Mental Status Change 03/11/2010 ROSELINE LUIS PHD V40.9 Unspecified Mental Or Behavioral Problem 03/11/2010 465.9 Acute Upper Respiratory Infections Of Unspecified Site 03/11/2010 780.97 Mental Status Change 03/11/2010 V40.9 Unspecified Mental Or Behavioral Problem 03/11/2010 465.9 Acute Upper Respiratory Infections Of Unspecified Site 03/11/2010 780.97 Mental Status Change 03/11/2010 V40.9 Unspecified Mental Or Behavioral Problem 03/11/2010 465.9 Acute Upper Respiratory Infections Of Unspecified Site 03/11/2010 780.97 Mental Status Change 03/11/2010 V40.9 Unspecified Mental Or Behavioral Problem 03/11/2010 SCHULZ DO, TREVOR K 465.9 Acute Upper Respiratory Infections Of Unspecified Site 03/11/2010 SCHULZ DO, TREVOR K 780.97 Mental Status Change 03/11/2010 SCHULZ DO, TREVOR K V40.9 Unspecified Mental Or Behavioral Problem 03/11/2010 ROSELINE LUIS PHD 465.9 Acute Upper Respiratory Infections Of Unspecified Site 03/11/2010 ROSELINE LUIS PHD 780.97 Mental Status Change 03/11/2010 TOBY JANE, ROSELINE Thakur V40.9 Unspecified Mental Or Behavioral Problem 03/11/2010 SCHULZ DO, TREVOR K 465.9 Acute Upper Respiratory Infections Of Unspecified Site 03/11/2010 SCHULZ DO, TREVOR K 780.97 Mental Status Change 03/11/2010 SCHULZ DO, TREVOR K V40.9 Unspecified Mental Or Behavioral Problem 03/11/2010 TIERRA LOZADA GABBIE HOMAR 465.9 Acute Upper Respiratory Infections Of Unspecified Site 03/11/2010 TIERRA LOZADA GABBIE HOMAR 780.97 Mental Status Change 03/11/2010 TIERRA LOZADA GABBIE HOMAR V40.9 Unspecified Mental Or Behavioral Problem 03/11/2010 YONATHAN RIOS MD 465.9 Acute Upper Respiratory Infections Of Unspecified Site 03/11/2010 YONATHAN RIOS MD 780.97 Mental Status Change 03/11/2010 YONATHAN RIOS MD V40.9 Unspecified Mental Or Behavioral Problem 03/11/2010 YONATHAN RIOS MD 465.9 Acute Upper Respiratory Infections Of Unspecified Site 03/11/2010 YONATHAN RIOS MD 780.97 Mental Status Change 03/11/2010 YONATHAN RIOS MD V40.9 Unspecified Mental Or Behavioral Problem 03/11/2010 ROSELINE LUIS PHD 465.9 Acute Upper Respiratory Infections Of Unspecified Site 03/11/2010 ROSELINE LUIS PHD 780.97 Mental Status Change 03/11/2010 ROSELINE LUIS PHD V40.9 Unspecified Mental Or Behavioral Problem 03/11/2010 ROSELINE LUIS PHD 465.9 Acute Upper Respiratory Infections Of Unspecified Site 03/11/2010 ROSELINE LUIS PHD 780.97 Mental Status Change 03/11/2010 ROSELINE LUIS PHD V40.9 Unspecified Mental Or Behavioral Problem 03/11/2010 NOEMI WASHBURN APRN S 465.9 Acute Upper Respiratory Infections Of Unspecified Site 03/11/2010 WU LOZADA NOEMI S 780.97 Mental Status Change 03/11/2010 DIPTI WASHBURN APRNNDA S V40.9 Unspecified Mental Or Behavioral Problem 03/11/2010 ROSELINE LUIS PHD 465.9 Acute Upper Respiratory Infections Of Unspecified Site 03/11/2010 TOBY JANE, ROSELINE Thakur 780.97 Mental Status Change 03/11/2010 TOBY JANE, ROSELINE Thakur V40.9 Unspecified Mental Or Behavioral Problem 03/11/2010 YONATHAN RIOS MD 465.9 Acute Upper Respiratory Infections Of Unspecified Site 03/11/2010 YONATHAN RIOS MD 780.97 Mental Status Change 03/11/2010 YONATHAN RIOS MD V40.9 Unspecified Mental Or Behavioral Problem 03/11/2010 WU CHAIR, NOEMI S 465.9 Acute Upper Respiratory Infections Of Unspecified Site 03/11/2010 WU CHAIR, NOEMI S 780.97 Mental Status Change 03/11/2010 WU CHAIR, NOEMI S V40.9 Unspecified Mental Or Behavioral Problem 03/11/2010 WU CHAIR, NOEMI S 465.9 Acute Upper Respiratory Infections Of Unspecified Site 03/11/2010 WU CHAIR, NOEMI S 780.97 Mental Status Change 03/11/2010 WU CHAIR, NOEMI S V40.9 Unspecified Mental Or Behavioral Problem 03/11/2010 TIERRA LOZADA GABBIE HOMAR 465.9 Acute Upper Respiratory Infections Of Unspecified Site 03/11/2010 TIERRA LOZADA, GABBIE DE [place] 780.97 Mental Status Change 03/11/2010 TIERRA LOZADA, GABBIE GRAF V40.9 Unspecified Mental Or Behavioral Problem 03/11/2010 ROSELINE LUSI PHD 465.9 Acute Upper Respiratory Infections Of Unspecified Site 03/11/2010 TOBY JANE, ROSELINE Thakur 780.97 Mental Status Change 03/11/2010 ROSELINE LUIS PHD V40.9 Unspecified Mental Or Behavioral Problem 03/11/2010 ROSELINE LUIS PHD 465.9 Acute Upper Respiratory Infections Of Unspecified Site 03/11/2010 TOBY JANE, ROSELINE Thakur 780.97 Mental Status Change 03/11/2010 TOBY JANE, ROSELINE Thakur V40.9 Unspecified Mental Or Behavioral Problem 03/11/2010 YONATHAN RIOS MD 465.9 Acute Upper Respiratory Infections Of Unspecified Site 03/11/2010 YONATHAN RIOS MD 780.97 Mental Status Change 03/11/2010 YONATHAN RIOS MD V40.9 Unspecified Mental Or Behavioral Problem 03/11/2010 ROSELINE LUIS PHD 465.9 Acute Upper Respiratory Infections Of Unspecified Site 03/11/2010 ROSELINE LUIS PHD 780.97 Mental Status Change 03/11/2010 ROSELINE LUIS PHD V40.9 Unspecified Mental Or Behavioral Problem 03/11/2010 TIERRA LOZADA GABBIE [place] 465.9 Acute Upper Respiratory Infections Of Unspecified Site 03/11/2010 TIERRA LOZADA GABBIE HOMAR 780.97 Mental Status Change 03/11/2010 TIERRA LOZADA GABBIE HOMAR V40.9 Unspecified Mental Or Behavioral Problem 03/11/2010 SCHULZ DO, TREVOR K 465.9 Acute Upper Respiratory Infections Of Unspecified Site 03/11/2010 SCHULZ DO, TREVOR K 780.97 Mental Status Change 03/11/2010 SCHULZ DO, TREVOR K V40.9 Unspecified Mental Or Behavioral Problem 03/11/2010 WUBREANNE LOZADA NOEMI S 465.9 Acute Upper Respiratory Infections Of Unspecified Site 03/11/2010 WU LOZADA NOEMI S 780.97 Mental Status Change 03/11/2010 WU LOZADA NOEMI S V40.9 Unspecified Mental Or Behavioral Problem 03/11/2010 ROSELINE LUIS PHD 465.9 Acute Upper Respiratory Infections Of Unspecified Site 03/11/2010 ROSELINE LUIS PHD 780.97 Mental Status Change 03/11/2010 ROSELINE LUIS PHD V40.9 Unspecified Mental Or Behavioral Problem 03/11/2010 ROSELINE LUIS PHD 465.9 Acute Upper Respiratory Infections Of Unspecified Site 03/11/2010 ROSELINE LIUS PHD 780.97 Mental Status Change 03/11/2010 ROSELINE LUIS PHD V40.9 Unspecified Mental Or Behavioral Problem 03/11/2010 GABBIE MAYORGA APRN 465.9 Acute Upper Respiratory Infections Of Unspecified Site 03/11/2010 GABBIE MAYORGA APRN 780.97 Mental Status Change 03/11/2010 GABBIE MAYORGA APRN V40.9 Unspecified Mental Or Behavioral Problem 03/11/2010 ROSELINE LUIS PHD 465.9 Acute Upper Respiratory Infections Of Unspecified Site 03/11/2010 ROSELINE LUIS PHD 780.97 Mental Status Change 03/11/2010 ROSELINE LUIS PHD V40.9 Unspecified Mental Or Behavioral Problem 03/11/2010 YONATHAN RIOS MD 465.9 Acute Upper Respiratory Infections Of Unspecified Site 03/11/2010 YONATHAN RIOS MD 780.97 Mental Status Change 03/11/2010 YONATHAN RIOS MD V40.9 Unspecified Mental Or Behavioral Problem 03/11/2010 LESLY WEAVER APRN R 465.9 Acute Upper Respiratory Infections Of Unspecified Site 03/11/2010 OWEN LOZADA, LESLY R 780.97 Mental Status Change 03/11/2010 KYLE WEAVER APRNIA R V40.9 Unspecified Mental Or Behavioral Problem 03/11/2010 ROSELINE LUIS PHD 465.9 Acute Upper Respiratory Infections Of Unspecified Site 03/11/2010 ROSELINE LUIS PHD 780.97 Mental Status Change 03/11/2010 ROSELINE LUIS PHD V40.9 Unspecified Mental Or Behavioral Problem 03/11/2010 ISMAEL RODRIGUEZ APRNINA R 465.9 Acute Upper Respiratory Infections Of Unspecified Site 03/11/2010 JENNIFER LOZADA, ARIANE R 780.97 Mental Status Change 03/11/2010 JENNIFER LOZADA ARIANE R V40.9 Unspecified Mental Or Behavioral Problem 03/11/2010 ROSELINE LUIS PHD 465.9 Acute Upper Respiratory Infections Of Unspecified Site 03/11/2010 ROSELINE LUIS PHD 780.97 Mental Status Change 03/11/2010 ROSELINE LUIS PHD V40.9 Unspecified Mental Or Behavioral Problem 03/11/2010 SP CARR APRN 465.9 Acute Upper Respiratory Infections Of Unspecified Site 03/11/2010 SP CARR APRN 780.97 Mental Status Change 03/11/2010 SP CARR APRN V40.9 Unspecified Mental Or Behavioral Problem 03/11/2010 SCHULZ DO, TREVOR K 465.9 Acute Upper Respiratory Infections Of Unspecified Site 03/11/2010 SCHULZ DO, TREVOR K 780.97 Mental Status Change 03/11/2010 SCHULZ DO, TREVOR K V40.9 Unspecified Mental Or Behavioral Problem 03/11/2010 ROSELINE LUIS PHD 465.9 Acute Upper Respiratory Infections Of Unspecified Site 03/11/2010 ROSELINE LUIS PHD 780.97 Mental Status Change 03/11/2010 ROSELINE LUIS PHD V40.9 Unspecified Mental Or Behavioral Problem 03/11/2010 YONATHAN RIOS MD 465.9 Acute Upper Respiratory Infections Of Unspecified Site 03/11/2010 YONATHAN RIOS MD 780.97 Mental Status Change 03/11/2010 YONATHAN RIOS MD V40.9 Unspecified Mental Or Behavioral Problem 03/11/2010 TOBY JANE, ROSELINE Thakur 465.9 Acute Upper Respiratory Infections Of Unspecified Site 03/11/2010 TOBY JANE, ROSELINE Thakur 780.97 Mental Status Change 03/11/2010 TOBY JANE, ROSELINE Thakur V40.9 Unspecified Mental Or Behavioral Problem 03/11/2010 NADINE HARP MD 465.9 Acute Upper Respiratory Infections Of Unspecified Site 03/11/2010 LOYD ROBINS, NADINE N 780.97 Mental Status Change 03/11/2010 NADINE HARP MD V40.9 Unspecified Mental Or Behavioral Problem 03/11/2010 WU CHAIR, NOEMI S 465.9 Acute Upper Respiratory Infections Of Unspecified Site 03/11/2010 WU CHAIR, NOEMI S 780.97 Mental Status Change 03/11/2010 WU CHAIR, NOEMI S V40.9 Unspecified Mental Or Behavioral Problem 03/11/2010 TOBY JANE, ROSELINE Thakur 465.9 Acute Upper Respiratory Infections Of Unspecified Site 03/11/2010 TOBY JANE, ROSELINE Thakur 780.97 Mental Status Change 03/11/2010 TOBY JANE, ROSELINE Thakur V40.9 Unspecified Mental Or Behavioral Problem 03/11/2010 WU CHAIR, NOEMI S 465.9 Acute Upper Respiratory Infections Of Unspecified Site 03/11/2010 WU CHAIR, NOEMI S 780.97 Mental Status Change 03/11/2010 WU CHAIR, NOEMI S V40.9 Unspecified Mental Or Behavioral Problem 03/11/2010 YONATHAN RIOS MD 465.9 Acute Upper Respiratory Infections Of Unspecified Site 03/11/2010 YONATHAN RIOS MD 780.97 Mental Status Change 03/11/2010 YONATHAN RIOS MD V40.9 Unspecified Mental Or Behavioral Problem 03/11/2010 WU CHAIR, NOEMI S 465.9 Acute Upper Respiratory Infections Of Unspecified Site 03/11/2010 WU CHAIR, NOEMI S 780.97 Mental Status Change 03/11/2010 WU CHAIR, NOEMI S V40.9 Unspecified Mental Or Behavioral Problem 03/11/2010 WU CHAIR, NOEMI S 465.9 Acute Upper Respiratory Infections Of Unspecified Site 03/11/2010 WU CHAIR, NOEMI S 780.97 Mental Status Change 03/11/2010 WU CHAIR, NOEMI S V40.9 Unspecified Mental Or Behavioral Problem 03/11/2010 ROSELINE LUIS PHD 465.9 Acute Upper Respiratory Infections Of Unspecified Site 03/11/2010 ROSELINE LUIS PHD 780.97 Mental Status Change 03/11/2010 ROSELINE LUIS PHD V40.9 Unspecified Mental Or Behavioral Problem 03/11/2010 LEXI FRENCH TEACHER, ALYSE M 465.9 Acute Upper Respiratory Infections Of Unspecified Site 03/11/2010 LEXI FRENCH TEACHER, ALYSE M 780.97 Mental Status Change 03/11/2010 LEXI FRENCH TEACHER, ALYSE M V40.9 Unspecified Mental Or Behavioral Problem 03/11/2010 LEXI FRENCH TEACHER, ALYSE M 465.9 Acute Upper Respiratory Infections Of Unspecified Site 03/11/2010 LEXI FRENCH TEACHER, ALYSE M 780.97 Mental Status Change 03/11/2010 LEXI FRENCH TEACHER, ALYSE M V40.9 Unspecified Mental Or Behavioral Problem 03/11/2010 WU CHAIR, NOEMI S 465.9 Acute Upper Respiratory Infections Of Unspecified Site 03/11/2010 WU CHAIR, NOEMI S 780.97 Mental Status Change 03/11/2010 WU CHAIR, NOEMI S V40.9 Unspecified Mental Or Behavioral Problem 03/11/2010 WU CHAIR, NOEMI S 465.9 Acute Upper Respiratory Infections Of Unspecified Site 03/11/2010 WU CHAIR, NOEMI S 780.97 Mental Status Change 03/11/2010 WU CHAIR, NOEMI S V40.9 Unspecified Mental Or Behavioral Problem 03/11/2010 ROSELINE LUIS PHD 465.9 Acute Upper Respiratory Infections Of Unspecified Site 03/11/2010 ROSELINE LUIS PHD 780.97 Mental Status Change 03/11/2010 ROSELINE LUIS PHD V40.9 Unspecified Mental Or Behavioral Problem 03/11/2010 WU CHAIR, NOEMI S 465.9 Acute Upper Respiratory Infections Of Unspecified Site 03/11/2010 JOSE WASHBURN APRNA S 780.97 Mental Status Change 03/11/2010 JOSE WASHBURN APRNA S V40.9 Unspecified Mental Or Behavioral Problem 03/18/2010 ROSELINE LUIS PHD 312.30 IMPULSE CONTROL DISORDER 03/18/2010 ROSELINE LUIS PHD 312.30 IMPULSE CONTROL DISORDER 03/18/2010 312.30 IMPULSE CONTROL DISORDER 03/18/2010 JOSE WASHBURN APRNA S 312.30 IMPULSE CONTROL DISORDER 03/18/2010 JOSE WASHBURN APRNA S 312.30 IMPULSE CONTROL DISORDER 03/18/2010 SCHULZ DO, TREVOR K 312.30 IMPULSE CONTROL DISORDER 03/18/2010 312.30 IMPULSE CONTROL DISORDER 03/18/2010 JOSE WASHBURN APRNA S 312.30 IMPULSE CONTROL DISORDER 03/18/2010 JOSE WASHBURN APRNA S 312.30 IMPULSE CONTROL DISORDER 03/18/2010 ROSELINE LUIS PHD 312.30 IMPULSE CONTROL DISORDER 03/18/2010 312.30 IMPULSE CONTROL DISORDER 03/18/2010 312.30 IMPULSE CONTROL DISORDER 03/18/2010 312.30 IMPULSE CONTROL DISORDER 03/18/2010 SCHULZ DOLURDESA K 312.30 IMPULSE CONTROL DISORDER 03/18/2010 ROSELINE LUIS PHD 312.30 IMPULSE CONTROL DISORDER 03/18/2010 SCHULZ DO TREVOR K 312.30 IMPULSE CONTROL DISORDER 03/18/2010 GABBIE MAYORGA APRN 312.30 IMPULSE CONTROL DISORDER 03/18/2010 YONATHAN RIOS MD 312.30 IMPULSE CONTROL DISORDER 03/18/2010 YONATHAN RIOS MD 312.30 IMPULSE CONTROL DISORDER 03/18/2010 ROSELINE LUIS PHD 312.30 IMPULSE CONTROL DISORDER 03/18/2010 ROSELINE LUIS PHD 312.30 IMPULSE CONTROL DISORDER 03/18/2010 NOEMI WASHBURN APRN S 312.30 IMPULSE CONTROL DISORDER 03/18/2010 ROSELINE LUIS PHD 312.30 IMPULSE CONTROL DISORDER 03/18/2010 YONATHAN RIOS MD 312.30 IMPULSE CONTROL DISORDER 03/18/2010 NOEMI WASHBURN APRN S 312.30 IMPULSE CONTROL DISORDER 03/18/2010 NOEMI WASHBURN APRN S 312.30 IMPULSE CONTROL DISORDER 03/18/2010 GABBIE MAYORGA APRN 312.30 IMPULSE CONTROL DISORDER 03/18/2010 TOBY JANE, ROSELINE Thakur 312.30 IMPULSE CONTROL DISORDER 03/18/2010 TOBY JANE, ROSELINE Thakur 312.30 IMPULSE CONTROL DISORDER 03/18/2010 YONATHAN RIOS MD 312.30 IMPULSE CONTROL DISORDER 03/18/2010 TOBY JANE, ROSELINE Thakur 312.30 IMPULSE CONTROL DISORDER 03/18/2010 TIERRA LOZADA GABBIE HOMAR 312.30 IMPULSE CONTROL DISORDER 03/18/2010 SCHULZ DO TREVOR K 312.30 IMPULSE CONTROL DISORDER 03/18/2010 JOSE WASHBURN APRNA S 312.30 IMPULSE CONTROL DISORDER 03/18/2010 TOBY JANE, ROSELINE Thakur 312.30 IMPULSE CONTROL DISORDER 03/18/2010 TOBY JANE, ROSELINE Thakur 312.30 IMPULSE CONTROL DISORDER 03/18/2010 GABBIE MAYORGA APRN 312.30 IMPULSE CONTROL DISORDER 03/18/2010 TOBY JANE, ROSELINE Thakur 312.30 IMPULSE CONTROL DISORDER 03/18/2010 YONATHAN RIOS MD 312.30 IMPULSE CONTROL DISORDER 03/18/2010 LESLY WEAVER APRN R 312.30 IMPULSE CONTROL DISORDER 03/18/2010 TOBY JANE, ROSELINE Thakur 312.30 IMPULSE CONTROL DISORDER 03/18/2010 ARIANE RODRIGUEZ APRN R 312.30 IMPULSE CONTROL DISORDER 03/18/2010 TOBY JANE, ROSELINE Thakur 312.30 IMPULSE CONTROL DISORDER 03/18/2010 SP CARR APRN 312.30 IMPULSE CONTROL DISORDER 03/18/2010 TREVOR SCHULZ DO K 312.30 IMPULSE CONTROL DISORDER 03/18/2010 TOBY JANE, ROSELINE Thakur 312.30 IMPULSE CONTROL DISORDER 03/18/2010 YONATHAN RIOS MD 312.30 IMPULSE CONTROL DISORDER 03/18/2010 TOBY JANE, ROSELINE Thakur 312.30 IMPULSE CONTROL DISORDER 03/18/2010 NADINE HARP MD 312.30 IMPULSE CONTROL DISORDER 03/18/2010 NOEMI WASHBURN APRN S 312.30 IMPULSE CONTROL DISORDER 03/18/2010 TOBY JANE, ROSELINE Thakur 312.30 IMPULSE CONTROL DISORDER 03/18/2010 WU LOZADA NOEMI S 312.30 IMPULSE CONTROL DISORDER 03/18/2010 YONATHAN RIOS MD 312.30 IMPULSE CONTROL DISORDER 03/18/2010 NOEMI WASHBURN APRN S 312.30 IMPULSE CONTROL DISORDER 03/18/2010 DIPTI WASHBURN APRNNDA S 312.30 IMPULSE CONTROL DISORDER 03/18/2010 ROSELINE LUIS PHD 312.30 IMPULSE CONTROL DISORDER 03/18/2010 LEXI FRENCH TEACHER, ALYSE M 312.30 IMPULSE CONTROL DISORDER 03/18/2010 LEXI FRENCH TEACHER, ALYSE M 312.30 IMPULSE CONTROL DISORDER 03/18/2010 DIPTI WASHBURN APRNNDA S 312.30 IMPULSE CONTROL DISORDER 03/18/2010 DIPTI WASHBURN APRNNDA S 312.30 IMPULSE CONTROL DISORDER 03/18/2010 ROSELINE LUIS PHD 312.30 IMPULSE CONTROL DISORDER 03/18/2010 JOSE WASHBURN APRNA S 312.30 IMPULSE CONTROL DISORDER 03/24/2010 ROSELINE LUIS PHD 388.2 Sudden Hearing Loss, Unspecified 03/24/2010 ROSELINE LUIS PHD 787.01 Nausea With Vomiting 03/24/2010 ROSELINE LUIS PHD 388.2 Sudden Hearing Loss, Unspecified 03/24/2010 ROSELINE LUIS PHD 787.01 Nausea With Vomiting 03/24/2010 388.2 Sudden Hearing Loss, Unspecified 03/24/2010 787.01 Nausea With Vomiting 03/24/2010 JOSE WASHBURN APRNA S 388.2 Sudden Hearing Loss, Unspecified 03/24/2010 DIPTI WASHBURN APRNNDA S 787.01 Nausea With Vomiting 03/24/2010 DIPTI WASHBURN APRNNDA S 388.2 Sudden Hearing Loss, Unspecified 03/24/2010 DIPTI WASHBURN APRNNDA S 787.01 Nausea With Vomiting 03/24/2010 SCHULZ DO, TREVOR K 388.2 Sudden Hearing Loss, Unspecified 03/24/2010 SCHULZ DO, TREVOR K 787.01 Nausea With Vomiting 03/24/2010 388.2 Sudden Hearing Loss, Unspecified 03/24/2010 787.01 Nausea With Vomiting 03/24/2010 JOSE WASHBURN APRNA S 388.2 Sudden Hearing Loss, Unspecified 03/24/2010 DIPTI WASHBURN APRNNDA S 787.01 Nausea With Vomiting 03/24/2010 DIPTI WASHBURN APRNNDA S 388.2 Sudden Hearing Loss, Unspecified 03/24/2010 DIPTI WASHBURN APRNNDA S 787.01 Nausea With Vomiting 03/24/2010 ROSELINE LUIS PHD 388.2 Sudden Hearing Loss, Unspecified 03/24/2010 ROSELINE LUIS PHD 787.01 Nausea With Vomiting 03/24/2010 388.2 Sudden Hearing Loss, Unspecified 03/24/2010 787.01 Nausea With Vomiting 03/24/2010 388.2 Sudden Hearing Loss, Unspecified 03/24/2010 787.01 Nausea With Vomiting 03/24/2010 388.2 Sudden Hearing Loss, Unspecified 03/24/2010 787.01 Nausea With Vomiting 03/24/2010 SCHULZ DO, TREVOR K 388.2 Sudden Hearing Loss, Unspecified 03/24/2010 SCHULZ DO, TREVOR K 787.01 Nausea With Vomiting 03/24/2010 ROSELINE LUIS PHD 388.2 Sudden Hearing Loss, Unspecified 03/24/2010 ROSELINE LUIS PHD 787.01 Nausea With Vomiting 03/24/2010 SCHULZ DO, TREVOR K 388.2 Sudden Hearing Loss, Unspecified 03/24/2010 SCHULZ DO, TREVOR K 787.01 Nausea With Vomiting 03/24/2010 GABBIE MAYORGA APRN 388.2 Sudden Hearing Loss, Unspecified 03/24/2010 GABBIE MAYORGA APRN 787.01 Nausea With Vomiting 03/24/2010 YONATHAN RIOS MD 388.2 Sudden Hearing Loss, Unspecified 03/24/2010 YONATHAN RIOS MD 787.01 Nausea With Vomiting 03/24/2010 YONATHAN RIOS MD 388.2 Sudden Hearing Loss, Unspecified 03/24/2010 YONATHAN RIOS MD 787.01 Nausea With Vomiting 03/24/2010 ROSELINE LUIS PHD 388.2 Sudden Hearing Loss, Unspecified 03/24/2010 ROSELINE LUIS PHD 787.01 Nausea With Vomiting 03/24/2010 ROSELINE LUIS PHD 388.2 Sudden Hearing Loss, Unspecified 03/24/2010 ROSELINE LUIS PHD 787.01 Nausea With Vomiting 03/24/2010 NOEMI WASHBURN APRN 388.2 Sudden Hearing Loss, Unspecified 03/24/2010 NOEMI WASHBURN APRN 787.01 Nausea With Vomiting 03/24/2010 ROSELINE LUIS PHD 388.2 Sudden Hearing Loss, Unspecified 03/24/2010 ROSELINE LUIS PHD 787.01 Nausea With Vomiting 03/24/2010 YONATHAN RIOS MD 388.2 Sudden Hearing Loss, Unspecified 03/24/2010 YONATHAN RIOS MD 787.01 Nausea With Vomiting 03/24/2010 NOEMI WASHBURN APRN S 388.2 Sudden Hearing Loss, Unspecified 03/24/2010 DIPTI WASHBURN APRNNDA S 787.01 Nausea With Vomiting 03/24/2010 NOEMI WASHBURN APRN S 388.2 Sudden Hearing Loss, Unspecified 03/24/2010 JOSE WASHBURN APRNA S 787.01 Nausea With Vomiting 03/24/2010 GABBIE MAYORGA APRN 388.2 Sudden Hearing Loss, Unspecified 03/24/2010 GABBIE MAYORGA APRN 787.01 Nausea With Vomiting 03/24/2010 ROSELINE LUIS PHD 388.2 Sudden Hearing Loss, Unspecified 03/24/2010 ROSELINE LUIS PHD 787.01 Nausea With Vomiting 03/24/2010 ROSELINE LUIS PHD 388.2 Sudden Hearing Loss, Unspecified 03/24/2010 TOBY JANE, ROSELINE Thakur 787.01 Nausea With Vomiting 03/24/2010 YONATHAN RIOS MD 388.2 Sudden Hearing Loss, Unspecified 03/24/2010 YONATHAN RIOS MD 787.01 Nausea With Vomiting 03/24/2010 ROSELINE LUIS PHD 388.2 Sudden Hearing Loss, Unspecified 03/24/2010 ROSELINE LUIS PHD 787.01 Nausea With Vomiting 03/24/2010 GABBIE MAYORGA APRN 388.2 Sudden Hearing Loss, Unspecified 03/24/2010 GABBIE MAYORGA APRN 787.01 Nausea With Vomiting 03/24/2010 SCHULZ DO, TREVOR K 388.2 Sudden Hearing Loss, Unspecified 03/24/2010 SCHULZ DO, TREVOR K 787.01 Nausea With Vomiting 03/24/2010 NOEMI WASHBURN APRN S 388.2 Sudden Hearing Loss, Unspecified 03/24/2010 JOSE WASHBURN APRNA S 787.01 Nausea With Vomiting 03/24/2010 ROSELINE LUIS PHD 388.2 Sudden Hearing Loss, Unspecified 03/24/2010 ROSELINE LUIS PHD 787.01 Nausea With Vomiting 03/24/2010 ROSELINE LUIS PHD 388.2 Sudden Hearing Loss, Unspecified 03/24/2010 ROSELINE LUIS PHD 787.01 Nausea With Vomiting 03/24/2010 TIERRA LOZADA, GABBIE GRAF 388.2 Sudden Hearing Loss, Unspecified 03/24/2010 TIERRA LOZADA, GABBIE GRAF 787.01 Nausea With Vomiting 03/24/2010 ROSELINE LUIS PHD 388.2 Sudden Hearing Loss, Unspecified 03/24/2010 ROSELINE LUIS PHD 787.01 Nausea With Vomiting 03/24/2010 YONATHAN RIOS MD 388.2 Sudden Hearing Loss, Unspecified 03/24/2010 YONATHAN RIOS MD 787.01 Nausea With Vomiting 03/24/2010 LESLY WEAVER APRN 388.2 Sudden Hearing Loss, Unspecified 03/24/2010 LESLY WEAVER APRN R 787.01 Nausea With Vomiting 03/24/2010 ROSELINE LUIS PHD 388.2 Sudden Hearing Loss, Unspecified 03/24/2010 ROSELINE LUIS PHD 787.01 Nausea With Vomiting 03/24/2010 JENNIFER LOZADA ARIANE R 388.2 Sudden Hearing Loss, Unspecified 03/24/2010 JENNIFER LOZADA ARIANE R 787.01 Nausea With Vomiting 03/24/2010 ROSELINE LUIS PHD 388.2 Sudden Hearing Loss, Unspecified 03/24/2010 ROSELINE LUIS PHD 787.01 Nausea With Vomiting 03/24/2010 SP CARR APRN 388.2 Sudden Hearing Loss, Unspecified 03/24/2010 SP CARR APRN 787.01 Nausea With Vomiting 03/24/2010 SCHULZ DO, TREVOR K 388.2 Sudden Hearing Loss, Unspecified 03/24/2010 SCHULZ DO, TREVOR K 787.01 Nausea With Vomiting 03/24/2010 ROSELINE LUIS PHD 388.2 Sudden Hearing Loss, Unspecified 03/24/2010 ROSELINE LUIS PHD 787.01 Nausea With Vomiting 03/24/2010 YONATHAN RIOS MD 388.2 Sudden Hearing Loss, Unspecified 03/24/2010 YONATHAN RIOS MD 787.01 Nausea With Vomiting 03/24/2010 ROSELINE LUIS PHD 388.2 Sudden Hearing Loss, Unspecified 03/24/2010 ROSELINE LUIS PHD 787.01 Nausea With Vomiting 03/24/2010 NADINE HARP MD 388.2 Sudden Hearing Loss, Unspecified 03/24/2010 NADINE HARP MD 787.01 Nausea With Vomiting 03/24/2010 WU CHAIR, NOEMI S 388.2 Sudden Hearing Loss, Unspecified 03/24/2010 WU CHAIR, NOEMI S 787.01 Nausea With Vomiting 03/24/2010 TOBY JANE, ROSELINE Thakur 388.2 Sudden Hearing Loss, Unspecified 03/24/2010 TOBY JANE, ROSELINE Thakur 787.01 Nausea With Vomiting 03/24/2010 WU CHAIR, NOEMI S 388.2 Sudden Hearing Loss, Unspecified 03/24/2010 WU CHAIR, NOEMI S 787.01 Nausea With Vomiting 03/24/2010 YONATHAN RIOS MD 388.2 Sudden Hearing Loss, Unspecified 03/24/2010 YONATHAN RIOS MD 787.01 Nausea With Vomiting 03/24/2010 WU CHAIR, NOEMI S 388.2 Sudden Hearing Loss, Unspecified 03/24/2010 WU CHAIR, NOEMI S 787.01 Nausea With Vomiting 03/24/2010 WU CHAIR, NOEMI S 388.2 Sudden Hearing Loss, Unspecified 03/24/2010 WU CHAIR, NOEMI S 787.01 Nausea With Vomiting 03/24/2010 TOBY JANE, ROSELINE Thakur 388.2 Sudden Hearing Loss, Unspecified 03/24/2010 TOBY JANE, ROSELINE Thakur 787.01 Nausea With Vomiting 03/24/2010 ALYSE LIMA M 388.2 Sudden Hearing Loss, Unspecified 03/24/2010 LEXI LEWIS, ALYSE M 787.01 Nausea With Vomiting 03/24/2010 LEXI LEWIS, ALYSE M 388.2 Sudden Hearing Loss, Unspecified 03/24/2010 LEXI LEWIS, ALYSE M 787.01 Nausea With Vomiting 03/24/2010 WU CHAIR, NOEMI S 388.2 Sudden Hearing Loss, Unspecified 03/24/2010 WU CHAIR, NOEMI S 787.01 Nausea With Vomiting 03/24/2010 WU CHAIR, NOEMI S 388.2 Sudden Hearing Loss, Unspecified 03/24/2010 NOEMI WASHBURN APRN S 787.01 Nausea With Vomiting 03/24/2010 ROSELINE LUIS PHD 388.2 Sudden Hearing Loss, Unspecified 03/24/2010 ROSELINE LUIS PHD 787.01 Nausea With Vomiting 03/24/2010 NOEMI WASHBURN APRN 388.2 Sudden Hearing Loss, Unspecified 03/24/2010 NOEMI WASHBURN APRN 787.01 Nausea With Vomiting 04/09/2010 Ot 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 04/09/2010 Ot 250.00 DIAB AILEEN WO COMPL, TYPE II OR UNSPEC TY 04/09/2010 Ot V58.69 OTH MED,LT, CURRENT USE 05/10/2010 ROSELINE LUIS PHD 924.9 Bruise/contusion Unspecified Site 05/10/2010 ROSELINE LUIS PHD 924.9 Bruise/contusion Unspecified Site 05/10/2010 924.9 Bruise/ contusion Unspecified Site 05/10/2010 NOEMI WASHBURN APRN S 924.9 Bruise/contusion Unspecified Site 05/10/2010 NOEMI WASHBURN APRN S 924.9 Bruise/contusion Unspecified Site 05/10/2010 RTEVOR SCHULZ DO 924.9 Bruise/contusion Unspecified Site 05/10/2010 924.9 Bruise/ contusion Unspecified Site 05/10/2010 NOEMI WASHBURN APRN S 924.9 Bruise/contusion Unspecified Site 05/10/2010 NOEMI WASHBURN APRN S 924.9 Bruise/contusion Unspecified Site 05/10/2010 ROSELINE LUIS PHD 924.9 Bruise/contusion Unspecified Site 05/10/2010 924.9 Bruise/ contusion Unspecified Site 05/10/2010 924.9 Bruise/ contusion Unspecified Site 05/10/2010 924.9 Bruise/ contusion Unspecified Site 05/10/2010 TREVOR SCHULZ DO 924.9 Bruise/contusion Unspecified Site 05/10/2010 ROSELINE LUIS PHD 924.9 Bruise/contusion Unspecified Site 05/10/2010 TREVOR SCHULZ DO 924.9 Bruise/contusion Unspecified Site 05/10/2010 TIERRA LOZADA, GABBIE GRAF 924.9 Bruise/contusion Unspecified Site 05/10/2010 YONATHAN RIOS MD 924.9 Bruise/contusion Unspecified Site 05/10/2010 BLANCA ROBINS, YONATHAN 924.9 Bruise/contusion Unspecified Site 05/10/2010 TOBY JANE, ROSELINE Thakur 924.9 Bruise/contusion Unspecified Site 05/10/2010 TOBY JANE, ROSELINE Thakur 924.9 Bruise/contusion Unspecified Site 05/10/2010 WU LOZADA, NOEMI S 924.9 Bruise/contusion Unspecified Site 05/10/2010 TOBY JANE, ROSELINE Thakur 924.9 Bruise/contusion Unspecified Site 05/10/2010 YONATHAN RIOS MD 924.9 Bruise/contusion Unspecified Site 05/10/2010 WU LOZADA, NOEMI S 924.9 Bruise/contusion Unspecified Site 05/10/2010 WU LOZADA, NOEMI S 924.9 Bruise/contusion Unspecified Site 05/10/2010 TIERRA LOZADA, GABBIE GRAF 924.9 Bruise/contusion Unspecified Site 05/10/2010 TOBY JANE, ROSELINE Thakur 924.9 Bruise/contusion Unspecified Site 05/10/2010 TOBY JANE, ROSELINE Thakur 924.9 Bruise/contusion Unspecified Site 05/10/2010 YONATHAN RIOS MD 924.9 Bruise/contusion Unspecified Site 05/10/2010 TOBY JANE, ROSELINE Thakur 924.9 Bruise/contusion Unspecified Site 05/10/2010 TIERRA LOZADA, GABBIE GRAF 924.9 Bruise/contusion Unspecified Site 05/10/2010 JAZZ STROUD, TREVOR K 924.9 Bruise/contusion Unspecified Site 05/10/2010 WU LOZADA, NOEMI S 924.9 Bruise/contusion Unspecified Site 05/10/2010 TOBY JANE, ROSELINE Thakur 924.9 Bruise/contusion Unspecified Site 05/10/2010 TOBY JANE, ROSELINE Thakur 924.9 Bruise/contusion Unspecified Site 05/10/2010 GABBIE MAYORGA APRN 924.9 Bruise/contusion Unspecified Site 05/10/2010 TOBY JANE, ROSELINE Thakur 924.9 Bruise/contusion Unspecified Site 05/10/2010 YONATHAN RIOS MD 924.9 Bruise/contusion Unspecified Site 05/10/2010 OWEN CHAIR, LESLY [place] 924.9 Bruise/contusion Unspecified Site 05/10/2010 TOBY PHD, ROSELINE Thakur 924.9 Bruise/contusion Unspecified Site 05/10/2010 JENNIFER CHAIR, ARIANE R 924.9 Bruise/contusion Unspecified Site 05/10/2010 TOBY PHD, ROSELINE Thakur 924.9 Bruise/contusion Unspecified Site 05/10/2010 LILLY CHAIR, SP [place] 924.9 Bruise/contusion Unspecified Site 05/10/2010 TREVOR SCHULZ DO 924.9 Bruise/contusion Unspecified Site 05/10/2010 TOBY JANE, ROSELINE Thakur 924.9 Bruise/contusion Unspecified Site 05/10/2010 YONATHAN RIOS MD 924.9 Bruise/contusion Unspecified Site 05/10/2010 TOBY JANE, ROSELINE Thakur 924.9 Bruise/contusion Unspecified Site 05/10/2010 LOYD ROBINS, NADINE Baum 924.9 Bruise/contusion Unspecified Site 05/10/2010 WU LOZADA, NOEMI S 924.9 Bruise/contusion Unspecified Site 05/10/2010 TOBY JANE, ROSELINE Thakur 924.9 Bruise/contusion Unspecified Site 05/10/2010 WU LOZADA, NOEMI S 924.9 Bruise/contusion Unspecified Site 05/10/2010 YONATHAN RIOS MD 924.9 Bruise/contusion Unspecified Site 05/10/2010 WU LOZADA, NOEMI S 924.9 Bruise/contusion Unspecified Site 05/10/2010 WU LOZADA, NOEMI S 924.9 Bruise/contusion Unspecified Site 05/10/2010 TOBY JANE, ROSELINE Thakur 924.9 Bruise/contusion Unspecified Site 05/10/2010 ALYSE LIMA 924.9 Bruise/contusion Unspecified Site 05/10/2010 LEXI JOSHUAALYSE 924.9 Bruise/contusion Unspecified Site 05/10/2010 WU LOZADA NOEMI S 924.9 Bruise/contusion Unspecified Site 05/10/2010 WU LOZADA, NOEMI S 924.9 Bruise/contusion Unspecified Site 05/10/2010 ROSELINE LUIS PHD 924.9 Bruise/contusion Unspecified Site 05/10/2010 DIPTI WASHBURN APRNNDA S 924.9 Bruise/contusion Unspecified Site 07/13/2010 ROSELINE LUIS PHD 413.9 Angina Pectoris 07/13/2010 ROSELINE LUIS PHD 413.9 Angina Pectoris 07/13/2010 413.9 Angina Pectoris 07/13/2010 WU LOZADA NOEMI S 413.9 Angina Pectoris 07/13/2010 WU LOZADA NOEMI S 413.9 Angina Pectoris 07/13/2010 TREVOR SCHULZ DO K 413.9 Angina Pectoris 07/13/2010 413.9 Angina Pectoris 07/13/2010 WU LOZADA NOEMI S 413.9 Angina Pectoris 07/13/2010 WU LOZADA NOEMI S 413.9 Angina Pectoris 07/13/2010 ROSELINE LUIS PHD 413.9 Angina Pectoris 07/13/2010 413.9 Angina Pectoris 07/13/2010 413.9 Angina Pectoris 07/13/2010 413.9 Angina Pectoris 07/13/2010 TREVOR SCHULZ DO K 413.9 Angina Pectoris 07/13/2010 ROSELINE LUIS PHD 413.9 Angina Pectoris 07/13/2010 TREVOR SCHULZ DO K 413.9 Angina Pectoris 07/13/2010 GABBIE MAYORGA APRN 413.9 Angina Pectoris 07/13/2010 YONATHAN RIOS MD 413.9 Angina Pectoris 07/13/2010 YONATHAN RIOS MD 413.9 Angina Pectoris 07/13/2010 ROSELINE LUIS PHD 413.9 Angina Pectoris 07/13/2010 ROSELINE LUIS PHD 413.9 Angina Pectoris 07/13/2010 DIPTI WASHBURN APRNNDA S 413.9 Angina Pectoris 07/13/2010 ROSELINE LUIS PHD 413.9 Angina Pectoris 07/13/2010 YONATHAN RIOS MD 413.9 Angina Pectoris 07/13/2010 NOEMI WASHBURN APRN S 413.9 Angina Pectoris 07/13/2010 NOEMI WASHBURN APRN S 413.9 Angina Pectoris 07/13/2010 TIERRA LOZADA GABBIE DE [place] 413.9 Angina Pectoris 07/13/2010 ROSELINE LUIS PHD 413.9 Angina Pectoris 07/13/2010 ROSELINE LUIS PHD 413.9 Angina Pectoris 07/13/2010 YONATHAN RIOS MD 413.9 Angina Pectoris 07/13/2010 ROSELINE LUIS PHD 413.9 Angina Pectoris 07/13/2010 GABBIE MAYORGA APRN 413.9 Angina Pectoris 07/13/2010 TREVOR SCHULZ DO K 413.9 Angina Pectoris 07/13/2010 NOEMI WASHBURN APRN S 413.9 Angina Pectoris 07/13/2010 ROSELINE LUIS PHD 413.9 Angina Pectoris 07/13/2010 ROSELINE LUIS PHD 413.9 Angina Pectoris 07/13/2010 GABBIE MAYORGA APRN 413.9 Angina Pectoris 07/13/2010 ROSELINE LUIS PHD 413.9 Angina Pectoris 07/13/2010 YONATHAN RIOS MD 413.9 Angina Pectoris 07/13/2010 LESLY WEAVER APRN R 413.9 Angina Pectoris 07/13/2010 ROSELINE LUIS PHD 413.9 Angina Pectoris 07/13/2010 ARIANE RODRIGUEZ APRN R 413.9 Angina Pectoris 07/13/2010 ROSELINE LUIS PHD 413.9 Angina Pectoris 07/13/2010 PS CARR APRN 413.9 Angina Pectoris 07/13/2010 SCHULZ DOTREVOR K 413.9 Angina Pectoris 07/13/2010 ROSELINE LUIS PHD 413.9 Angina Pectoris 07/13/2010 YONATHAN RIOS MD 413.9 Angina Pectoris 07/13/2010 ROSELINE LUIS PHD 413.9 Angina Pectoris 07/13/2010 NADINE HARP MD 413.9 Angina Pectoris 07/13/2010 NOEMI WASHBURN APRN S 413.9 Angina Pectoris 07/13/2010 ROSELINE LUIS PHD 413.9 Angina Pectoris 07/13/2010 NOEMI WASHBURN APRN S 413.9 Angina Pectoris 07/13/2010 YONATHAN RIOS MD 413.9 Angina Pectoris 07/13/2010 NOEMI WASHBURN APRN S 413.9 Angina Pectoris 07/13/2010 NOEMI WASHBURN APRN S 413.9 Angina Pectoris 07/13/2010 ROSELINE LUIS PHD 413.9 Angina Pectoris 07/13/2010 ALYSE LIMA M 413.9 Angina Pectoris 07/13/2010 LEXI LEWIS, ALYSE M 413.9 Angina Pectoris 07/13/2010 NOEMI WASHBURN APRN S 413.9 Angina Pectoris 07/13/2010 NOEMI WASHBURN APRN S 413.9 Angina Pectoris 07/13/2010 ROSELINE LUIS PHD 413.9 Angina Pectoris 07/13/2010 NOEMI WASHBURN APRN S 413.9 Angina Pectoris 07/14/2010 Ot 250.00 DIAB AILEEN WO COMPL, TYPE II OR UNSPEC TY 07/14/2010 Ot 272.4 HYPERLIPIDEMIA NEC/NOS 07/14/2010 Ot 278.01 MORBID OBESITY 07/14/2010 Ot 296.80 BIPOLAR DISORDER, UNSPECIFIED 07/14/2010 Ot 327.23 OBSTRUCTIVE SLEEP APNEA (ADULT) (PEDIATR 07/14/2010 Ot 345.90 EPILEPSY UNSPEC W/O MENTION INTRACTABLE 07/14/2010 Ot 401.9 HYPERTENSION NOS 07/14/2010 Ot 786.59 CHEST PAIN NEC 07/14/2010 Ot 787.91 DIARRHEA 07/14/2010 Ot V58.67 LONG-TERM ( CURRENT) USE OF INSULIN 07/14/2010 Ot V58.69 OTH MED,LT, CURRENT USE 07/14/2010 Ot V85.43 BODY MASS INDEX 50.0-59.9, ADULT 08/02/2010 ROSELINE LUIS PHD 786.05 Shortness Of Breath 08/02/2010 ROSELINE LUIS PHD 786.52 Painful Respiration 08/02/2010 ROSELINE LUIS PHD 786.05 Shortness Of Breath 08/02/2010 ROSELINE LUIS PHD 786.52 Painful Respiration 08/02/2010 786.05 Shortness Of Breath 08/02/2010 786.52 Painful Respiration 08/02/2010 WU CHAIR, NOEMI S 786.05 Shortness Of Breath 08/02/2010 WU CHAIR, NOEMI S 786.52 Painful Respiration 08/02/2010 WU CHAIR, NOEMI S 786.05 Shortness Of Breath 08/02/2010 WU CHAIR, NOEMI S 786.52 Painful Respiration 08/02/2010 SCHULZ DO, TREVOR K 786.05 Shortness Of Breath 08/02/2010 SCHULZ DO, TREVOR K 786.52 Painful Respiration 08/02/2010 786.05 Shortness Of Breath 08/02/2010 786.52 Painful Respiration 08/02/2010 WU CHAIR, NOEMI S 786.05 Shortness Of Breath 08/02/2010 WU CHAIR, NOEMI S 786.52 Painful Respiration 08/02/2010 WU CHAIR, NOEMI S 786.05 Shortness Of Breath 08/02/2010 WU CHAIR, NOEMI S 786.52 Painful Respiration 08/02/2010 ROSELINE LUIS PHD 786.05 Shortness Of Breath 08/02/2010 ROSELINE LUIS PHD 786.52 Painful Respiration 08/02/2010 786.05 Shortness Of Breath 08/02/2010 786.52 Painful Respiration 08/02/2010 786.05 Shortness Of Breath 08/02/2010 786.52 Painful Respiration 08/02/2010 786.05 Shortness Of Breath 08/02/2010 786.52 Painful Respiration 08/02/2010 SCHULZ DO, TREVOR K 786.05 Shortness Of Breath 08/02/2010 SCHULZ DO, TREVOR K 786.52 Painful Respiration 08/02/2010 ROSELINE LUIS PHD 786.05 Shortness Of Breath 08/02/2010 ROSELINE LUIS PHD 786.52 Painful Respiration 08/02/2010 SCHULZ DO, TREVOR K 786.05 Shortness Of Breath 08/02/2010 SCHULZ DO, TREVOR K 786.52 Painful Respiration 08/02/2010 MAYORGA CHAIR, GABBIE GRAF 786.05 Shortness Of Breath 08/02/2010 MAYORGA CHAIR, GABBIE GRAF 786.52 Painful Respiration 08/02/2010 YONATHAN RIOS MD 786.05 Shortness Of Breath 08/02/2010 YONATHAN RIOS MD 786.52 Painful Respiration 08/02/2010 YONATHAN RIOS MD 786.05 Shortness Of Breath 08/02/2010 YONATHAN RIOS MD 786.52 Painful Respiration 08/02/2010 ROSELINE LUIS PHD 786.05 Shortness Of Breath 08/02/2010 TOBY JANE, ROSELINE Thakur 786.52 Painful Respiration 08/02/2010 TOBY JANE, ROSELINE Thakur 786.05 Shortness Of Breath 08/02/2010 TOBY JANE, ROSELINE Thakur 786.52 Painful Respiration 08/02/2010 WU CHAIR, NOEMI S 786.05 Shortness Of Breath 08/02/2010 WU CHAIR, NOEMI S 786.52 Painful Respiration 08/02/2010 TOBY JANE, ROSELINE Thakur 786.05 Shortness Of Breath 08/02/2010 TOBY JANE, ROSELINE Thakur 786.52 Painful Respiration 08/02/2010 YONATHAN RIOS MD 786.05 Shortness Of Breath 08/02/2010 YONATHAN RIOS MD 786.52 Painful Respiration 08/02/2010 WU CHAIR, NOEMI S 786.05 Shortness Of Breath 08/02/2010 WU CHAIR, NOEMI S 786.52 Painful Respiration 08/02/2010 WU CHAIR, NOEMI S 786.05 Shortness Of Breath 08/02/2010 WU CHAIR, NOEMI S 786.52 Painful Respiration 08/02/2010 MAYORGA CHAIR, GABBIE GRAF 786.05 Shortness Of Breath 08/02/2010 MAYORGA CHAIR, GABBIE GRAF 786.52 Painful Respiration 08/02/2010 TOBY JANE, ROSELINE Thakur 786.05 Shortness Of Breath 08/02/2010 ROSELINE LUIS PHD 786.52 Painful Respiration 08/02/2010 ROSELINE LUIS PHD 786.05 Shortness Of Breath 08/02/2010 TOBY JANE, ROSELINE Thakur 786.52 Painful Respiration 08/02/2010 YONATHAN RIOS MD 786.05 Shortness Of Breath 08/02/2010 YONATHAN RIOS MD 786.52 Painful Respiration 08/02/2010 ROSELINE LUIS PHD 786.05 Shortness Of Breath 08/02/2010 ROSELINE LUIS PHD 786.52 Painful Respiration 08/02/2010 MAYORGA CHAIR, GABBIE GRAF 786.05 Shortness Of Breath 08/02/2010 TIERRA ARROYONGABBIE 786.52 Painful Respiration 08/02/2010 SCHULZ DO, TREVOR K 786.05 Shortness Of Breath 08/02/2010 SCHULZ DO, TREVOR K 786.52 Painful Respiration 08/02/2010 WU LOZADA NOEMI S 786.05 Shortness Of Breath 08/02/2010 WU LOZADA, NOEMI S 786.52 Painful Respiration 08/02/2010 ROSELINE LUIS PHD 786.05 Shortness Of Breath 08/02/2010 ROSELINE LUIS PHD 786.52 Painful Respiration 08/02/2010 ROSELINE LUIS PHD 786.05 Shortness Of Breath 08/02/2010 ROSELINE LUIS PHD 786.52 Painful Respiration 08/02/2010 MAYORGA NEVILLE GABBIE GRAF 786.05 Shortness Of Breath 08/02/2010 TIERRA LOZADA GABBIE GRAF 786.52 Painful Respiration 08/02/2010 ROSELINE LUIS PHD 786.05 Shortness Of Breath 08/02/2010 ROSELINE LUIS PHD 786.52 Painful Respiration 08/02/2010 YONATHAN RIOS MD 786.05 Shortness Of Breath 08/02/2010 YONATHAN RIOS MD 786.52 Painful Respiration 08/02/2010 KYLE WEAVER APRNIA R 786.05 Shortness Of Breath 08/02/2010 LESLY WEAVER APRN R 786.52 Painful Respiration 08/02/2010 ROSELINE LUIS PHD 786.05 Shortness Of Breath 08/02/2010 ROSELINE LUIS PHD 786.52 Painful Respiration 08/02/2010 JENNIFER LOZADA ARIANE R 786.05 Shortness Of Breath 08/02/2010 JENNIFER LOZADA ARIANE R 786.52 Painful Respiration 08/02/2010 ROSELINE LUIS PHD 786.05 Shortness Of Breath 08/02/2010 ROSELINE LUIS PHD 786.52 Painful Respiration 08/02/2010 SP CARR APRN 786.05 Shortness Of Breath 08/02/2010 SP CARR APRN 786.52 Painful Respiration 08/02/2010 SCHULZ DO, TREVOR K 786.05 Shortness Of Breath 08/02/2010 SCHULZ DO, TREVOR K 786.52 Painful Respiration 08/02/2010 ROSELINE LUIS PHD 786.05 Shortness Of Breath 08/02/2010 ROSELINE LUIS PHD 786.52 Painful Respiration 08/02/2010 YONATHAN RIOS MD 786.05 Shortness Of Breath 08/02/2010 YONATHAN RIOS MD 786.52 Painful Respiration 08/02/2010 ROSELINE LUIS PHD 786.05 Shortness Of Breath 08/02/2010 ROSELINE LUIS PHD 786.52 Painful Respiration 08/02/2010 NADINE HARP MD N 786.05 Shortness Of Breath 08/02/2010 NADINE HARP MD N 786.52 Painful Respiration 08/02/2010 WU CHAIR, NOEMI S 786.05 Shortness Of Breath 08/02/2010 WU ARROYON, NOEMI S 786.52 Painful Respiration 08/02/2010 ROSELINE LUIS PHD 786.05 Shortness Of Breath 08/02/2010 ROSELINE LUIS PHD 786.52 Painful Respiration 08/02/2010 WU CHAIR, NOEMI S 786.05 Shortness Of Breath 08/02/2010 WU CHAIR, NOEMI S 786.52 Painful Respiration 08/02/2010 YONATHAN RIOS MD 786.05 Shortness Of Breath 08/02/2010 YONATHAN RIOS MD 786.52 Painful Respiration 08/02/2010 WU CHAIR, NOEMI S 786.05 Shortness Of Breath 08/02/2010 WU CHAIR, NOEMI S 786.52 Painful Respiration 08/02/2010 WU CHAIR, NOEMI S 786.05 Shortness Of Breath 08/02/2010 WU ARROYON, NOEMI S 786.52 Painful Respiration 08/02/2010 ROSELINE LUIS PHD 786.05 Shortness Of Breath 08/02/2010 ROSELINE LUIS PHD 786.52 Painful Respiration 08/02/2010 LEXI FRENCH TEACHER, ALYSE M 786.05 Shortness Of Breath 08/02/2010 LEXI FRENCH TEACHER, ALYSE M 786.52 Painful Respiration 08/02/2010 LEXI FRENCH TEACHER, ALYSE M 786.05 Shortness Of Breath 08/02/2010 LEXI FRENCH TEACHER, ALYSE M 786.52 Painful Respiration 08/02/2010 WU CHAIR, NOEMI S 786.05 Shortness Of Breath 08/02/2010 WU CHAIR, NOEMI S 786.52 Painful Respiration 08/02/2010 WU ARROYON, NOEMI S 786.05 Shortness Of Breath 08/02/2010 WU LOZADA, NOEMI S 786.52 Painful Respiration 08/02/2010 TOBY JANE, ROSELINE Thakur 786.05 Shortness Of Breath 08/02/2010 ROSELINE LUIS PHD 786.52 Painful Respiration 08/02/2010 WU LOZADA, NOEMI S 786.05 Shortness Of Breath 08/02/2010 WU LOZADA, NOEMI S 786.52 Painful Respiration 08/11/2010 TOBY JANE, ROSELINE Thakur 786.50 Chest Pain 08/11/2010 TOBY JANE, ROSELINE Thakur 786.50 Chest Pain 08/11/2010 786.50 Chest Pain 08/11/2010 WU LOZADA, NOEMI S 786.50 Chest Pain 08/11/2010 WU LOZADA NOEMI S 786.50 Chest Pain 08/11/2010 SCHULZ DO, TREVOR K 786.50 Chest Pain 08/11/2010 786.50 Chest Pain 08/11/2010 WU LOZADA, NOEMI S 786.50 Chest Pain 08/11/2010 WU LOZADA, NOEMI S 786.50 Chest Pain 08/11/2010 TOBY JANE, ROSELINE Thakur 786.50 Chest Pain 08/11/2010 786.50 Chest Pain 08/11/2010 786.50 Chest Pain 08/11/2010 786.50 Chest Pain 08/11/2010 SCHULZ DO TREVOR K 786.50 Chest Pain 08/11/2010 TOBY JANE, ROSELINE Thakur 786.50 Chest Pain 08/11/2010 SCHULZ DO TREVOR K 786.50 Chest Pain 08/11/2010 GABBIE MAYORGA APRN HOMAR 786.50 Chest Pain 08/11/2010 YONATHAN RIOS MD 786.50 Chest Pain 08/11/2010 YONATHAN RIOS MD 786.50 Chest Pain 08/11/2010 TOBY JANE, ROSELINE Thakur 786.50 Chest Pain 08/11/2010 TOBY JANE, ROSELINE Thakur 786.50 Chest Pain 08/11/2010 DIPTI WASHBURN APRNNDA S 786.50 Chest Pain 08/11/2010 TOBY JANE, ROSELINE Thakur 786.50 Chest Pain 08/11/2010 YONATHAN RIOS MD 786.50 Chest Pain 08/11/2010 WU CHAIR, NOEMI S 786.50 Chest Pain 08/11/2010 WU CHAIR, NOEMI S 786.50 Chest Pain 08/11/2010 TIERRA CHAIR, GABBIE GRAF 786.50 Chest Pain 08/11/2010 TOBY PHD, ROSELINE Thakur 786.50 Chest Pain 08/11/2010 TOBY PHD, ROSELINE D 786.50 Chest Pain 08/11/2010 YONATHAN RIOS MD 786.50 Chest Pain 08/11/2010 TOBY PHD, ROSELINE Thakur 786.50 Chest Pain 08/11/2010 MAYORGA CHAIR, GABBIE GRAF 786.50 Chest Pain 08/11/2010 JAZZ DOTREVOR K 786.50 Chest Pain 08/11/2010 WU CHAIR, NOEMI S 786.50 Chest Pain 08/11/2010 TOBY PHD, ROSELINE Thakur 786.50 Chest Pain 08/11/2010 TOBY PHD, ROSELINE Thakur 786.50 Chest Pain 08/11/2010 TIERRA CHAIR, GABBIE GRAF 786.50 Chest Pain 08/11/2010 TOBY PHD, ROSELINE Thakur 786.50 Chest Pain 08/11/2010 YONATHAN RIOS MD 786.50 Chest Pain 08/11/2010 OWEN CHAIR, LESLY R 786.50 Chest Pain 08/11/2010 TOBY PHD, ROSELINE Thakur 786.50 Chest Pain 08/11/2010 JENNIFER CHAIR, ARIANE R 786.50 Chest Pain 08/11/2010 TOBY PHD, ROSELINE Thakur 786.50 Chest Pain 08/11/2010 LILLY CHAIR, SP [place] 786.50 Chest Pain 08/11/2010 TREVOR SCHULZ DO K 786.50 Chest Pain 08/11/2010 TOBY PHD, ROSELINE D 786.50 Chest Pain 08/11/2010 YONATHAN RIOS MD 786.50 Chest Pain 08/11/2010 TOBY PHD, ROSELINE Thakur 786.50 Chest Pain 08/11/2010 NADINE HARP MD 786.50 Chest Pain 08/11/2010 WU ARROYON, NOEMI S 786.50 Chest Pain 08/11/2010 TOBY PHD, ROSELINE Thakur 786.50 Chest Pain 08/11/2010 WU LOZADA, NOEMI S 786.50 Chest Pain 08/11/2010 YONATHAN RIOS MD 786.50 Chest Pain 08/11/2010 DIPTI WASHBURN APRNNDA S 786.50 Chest Pain 08/11/2010 JOSE WASHBURN APRNA S 786.50 Chest Pain 08/11/2010 ROSELINE LUIS PHD 786.50 Chest Pain 08/11/2010 ALYSE LIMA M 786.50 Chest Pain 08/11/2010 LEXI LEWIS, ALYSE M 786.50 Chest Pain 08/11/2010 NOEMI WASHBURN APRN S 786.50 Chest Pain 08/11/2010 JOSE WASHBURN APRNA S 786.50 Chest Pain 08/11/2010 ROSELINE LUIS PHD 786.50 Chest Pain 08/11/2010 NOEMI WASHBURN APRN S 786.50 Chest Pain 08/16/2010 Ot 250.00 DIAB AILEEN WO COMPL, TYPE II OR UNSPEC TY 08/16/2010 Ot 272.4 HYPERLIPIDEMIA NEC/NOS 08/16/2010 Ot 278.00 OBESITY, NOS 08/16/2010 Ot 345.90 EPILEPSY UNSPEC W/O MENTION INTRACTABLE 08/16/2010 Ot 401.9 HYPERTENSION NOS 08/16/2010 Ot 780.57 UNSPECIFIED SLEEP APNEA 08/16/2010 Ot 786.50 CHEST PAIN NOS 08/16/2010 Ot V58.67 LONG-TERM ( CURRENT) USE OF INSULIN 08/16/2010 Ot V58.69 OTH MED,LT, CURRENT USE 08/26/2010 Ot 327.23 OBSTRUCTIVE SLEEP APNEA (ADULT) (PEDIATR 09/16/2010 Ot 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 09/16/2010 Ot 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 09/16/2010 Ot 250.00 DIAB AILEEN WO COMPL, TYPE II OR UNSPEC TY 09/16/2010 Ot 702.0 ACTINIC KERATOSIS 09/16/2010 Ot 709.2 SCAR FIBROSIS OF SKIN 09/16/2010 Ot V58.67 LONG-TERM ( CURRENT) USE OF INSULIN 09/20/2010 TOBY PHD, ROSELINE Thakur 009.1 Gastroenteritis Infect 09/20/2010 ROSELINE LUIS PHD 009.1 Gastroenteritis Infect 09/20/2010 009.1 Gastroenteritis Infect 09/20/2010 NOEMI WASHBURN APRN S 009.1 Gastroenteritis Infect 09/20/2010 ONEMI WASHBURN APRN 009.1 Gastroenteritis Infect 09/20/2010 SCHULZ DO, TREVOR K 009.1 Gastroenteritis Infect 09/20/2010 009.1 Gastroenteritis Infect 09/20/2010 WU LOZADA NOEMI S 009.1 Gastroenteritis Infect 09/20/2010 JOSE WASHBURN APRNA S 009.1 Gastroenteritis Infect 09/20/2010 ROSELINE LUIS PHD 009.1 Gastroenteritis Infect 09/20/2010 009.1 Gastroenteritis Infect 09/20/2010 009.1 Gastroenteritis Infect 09/20/2010 009.1 Gastroenteritis Infect 09/20/2010 SCHULZ DO, TREVOR K 009.1 Gastroenteritis Infect 09/20/2010 ROSELINE LUIS PHD 009.1 Gastroenteritis Infect 09/20/2010 SCHULZ DO, TREVOR K 009.1 Gastroenteritis Infect 09/20/2010 GABBIE MAYORGA APRN 009.1 Gastroenteritis Infect 09/20/2010 YONATHAN RIOS MD 009.1 Gastroenteritis Infect 09/20/2010 YONATHAN RIOS MD 009.1 Gastroenteritis Infect 09/20/2010 ROSELINE LUIS PHD 009.1 Gastroenteritis Infect 09/20/2010 ROSELINE LUIS PHD 009.1 Gastroenteritis Infect 09/20/2010 JOSE WASHBURN APRNA S 009.1 Gastroenteritis Infect 09/20/2010 ROSELINE LUIS PHD 009.1 Gastroenteritis Infect 09/20/2010 YONATHAN RIOS MD 009.1 Gastroenteritis Infect 09/20/2010 JOSE WASHBURN APRNA S 009.1 Gastroenteritis Infect 09/20/2010 JOSE WASHBURN APRNA S 009.1 Gastroenteritis Infect 09/20/2010 GABBIE MAYORGA APRN 009.1 Gastroenteritis Infect 09/20/2010 ROSELINE LUIS PHD 009.1 Gastroenteritis Infect 09/20/2010 ROSELINE LUIS PHD 009.1 Gastroenteritis Infect 09/20/2010 YONATHAN RIOS MD 009.1 Gastroenteritis Infect 09/20/2010 ROSELINE LUIS PHD 009.1 Gastroenteritis Infect 09/20/2010 GABBIE MAYORGA APRN 009.1 Gastroenteritis Infect 09/20/2010 SCHULZ DO, TREVOR K 009.1 Gastroenteritis Infect 09/20/2010 JOSE WASHBURN APRNA S 009.1 Gastroenteritis Infect 09/20/2010 ROSELINE LUIS PHD 009.1 Gastroenteritis Infect 09/20/2010 ROSELINE LUIS PHD 009.1 Gastroenteritis Infect 09/20/2010 GABBIE MAYORGA APRN 009.1 Gastroenteritis Infect 09/20/2010 TOBY JANE, ROSELINE Thakur 009.1 Gastroenteritis Infect 09/20/2010 YONATHAN RIOS MD 009.1 Gastroenteritis Infect 09/20/2010 LESLY WEAVER APRN R 009.1 Gastroenteritis Infect 09/20/2010 TOBY JANE, ROSELINE Thakur 009.1 Gastroenteritis Infect 09/20/2010 JENNIFER LOZADA, ARIANE R 009.1 Gastroenteritis Infect 09/20/2010 TOBY PHD, ROSELINE Thakur 009.1 Gastroenteritis Infect 09/20/2010 LILLY LOZADA, SP [place] 009.1 Gastroenteritis Infect 09/20/2010 TREVOR SCHULZ DO 009.1 Gastroenteritis Infect 09/20/2010 TOBY JANE, ROSELINE Thakur 009.1 Gastroenteritis Infect 09/20/2010 YONATHAN RIOS MD 009.1 Gastroenteritis Infect 09/20/2010 TOBY JANE, ROSELINE Thakur 009.1 Gastroenteritis Infect 09/20/2010 LOYD ROBINS, NADINE Baum 009.1 Gastroenteritis Infect 09/20/2010 NOEMI WASHBURN APRN S 009.1 Gastroenteritis Infect 09/20/2010 TOBY JANE, ROSELINE Thakur 009.1 Gastroenteritis Infect 09/20/2010 JOSE WASHBURN APRNA S 009.1 Gastroenteritis Infect 09/20/2010 YONATHAN RIOS MD 009.1 Gastroenteritis Infect 09/20/2010 DIPTI WASHBURN APRNNDA S 009.1 Gastroenteritis Infect 09/20/2010 WU LOZADA NOEMI S 009.1 Gastroenteritis Infect 09/20/2010 TOBY JANE, ROSELINE Thakur 009.1 Gastroenteritis Infect 09/20/2010 ALYSE LIMA M 009.1 Gastroenteritis Infect 09/20/2010 ALYSE LIMA M 009.1 Gastroenteritis Infect 09/20/2010 WU LOZADA NOEMI S 009.1 Gastroenteritis Infect 09/20/2010 DIPTI WASHBURN APRNNDA S 009.1 Gastroenteritis Infect 09/20/2010 ROSELINE LUIS PHD 009.1 Gastroenteritis Infect 09/20/2010 DIPTI WASHBURN APRNNDA S 009.1 Gastroenteritis Infect 10/14/2010 ROSELINE LUIS PHD 788.1 Dysuria 10/14/2010 ROSELINE LUIS PHD 788.1 Dysuria 10/14/2010 788.1 Dysuria 10/14/2010 WU CHAIR, NOEMI S 788.1 Dysuria 10/14/2010 WU CHAIR, NOEMI S 788.1 Dysuria 10/14/2010 SCHULZ DO, TREVOR K 788.1 Dysuria 10/14/2010 788.1 Dysuria 10/14/2010 WU CHAIR, NOEMI S 788.1 Dysuria 10/14/2010 WU LOZADA, NOEMI S 788.1 Dysuria 10/14/2010 TOBY JANE, ROSELINE Thakur 788.1 Dysuria 10/14/2010 788.1 Dysuria 10/14/2010 788.1 Dysuria 10/14/2010 788.1 Dysuria 10/14/2010 SCHULZ DO, TREVOR K 788.1 Dysuria 10/14/2010 TOBY JANE, ROSELINE Thakur 788.1 Dysuria 10/14/2010 SCHULZ DO, TREVOR K 788.1 Dysuria 10/14/2010 GABBIE MAYORGA APRN 788.1 Dysuria 10/14/2010 YONATHAN RIOS MD8.1 Dysuria 10/14/2010 YONATHAN RIOS MD 788.1 Dysuria 10/14/2010 TOBY JANE, ROSELINE Thakur 788.1 Dysuria 10/14/2010 TOBY JANE, ROSELINE Thakur 788.1 Dysuria 10/14/2010 DIPTI WASHBURN APRNNDA S 788.1 Dysuria 10/14/2010 TOBY JANE, ROSELINE Thakur 788.1 Dysuria 10/14/2010 YONATHAN RIOS MD 788.1 Dysuria 10/14/2010 WU LOZADA NOEMI S 788.1 Dysuria 10/14/2010 WU LOZADA, NOEMI S 788.1 Dysuria 10/14/2010 GABBIE MAYORGA APRN 788.1 Dysuria 10/14/2010 TOBY JANE, ROSELINE Thakur 788.1 Dysuria 10/14/2010 TOBY JANE, ROSELINE Thakur 788.1 Dysuria 10/14/2010 YONATHAN RIOS MD 788.1 Dysuria 10/14/2010 TOBY JANE, ROSELINE Thakur 788.1 Dysuria 10/14/2010 GABBIE MAYORGA APRN 788.1 Dysuria 10/14/2010 SCHULZ DO, TREVOR K 788.1 Dysuria 10/14/2010 WU LOZADA, NOEMI S 788.1 Dysuria 10/14/2010 TOBY PHD, ROSELINE Thakur 788.1 Dysuria 10/14/2010 TOBY PHD, ROSELINE Thakur 788.1 Dysuria 10/14/2010 TIERRA LOZADA GABBIE GRAF 788.1 Dysuria 10/14/2010 TOBY PHD, ROSELINE Thakur 788.1 Dysuria 10/14/2010 YONATHAN RIOS MD 788.1 Dysuria 10/14/2010 LESLY WEAVER APRN R 788.1 Dysuria 10/14/2010 TOBY PHD, ROSELIEN Thakur 788.1 Dysuria 10/14/2010 ARIANE RODRIGUEZ APRN R 788.1 Dysuria 10/14/2010 TOBY PHD, ROSELINE Thakur 788.1 Dysuria 10/14/2010 SP CARR APRN 788.1 Dysuria 10/14/2010 JAZZ STROUD TREVOR K 788.1 Dysuria 10/14/2010 TOBY JANE, ROSELINE Thakur 788.1 Dysuria 10/14/2010 YONATHAN RIOS MD 788.1 Dysuria 10/14/2010 TOBY JANE, ORSELINE Thakur 788.1 Dysuria 10/14/2010 LOYD ROBINS, NADINE Baum 788.1 Dysuria 10/14/2010 WU LOZADA, NOEMI S 788.1 Dysuria 10/14/2010 TOBY JANE, ROSELINE Thakur 788.1 Dysuria 10/14/2010 WU LOZADA, NOEMI S 788.1 Dysuria 10/14/2010 YONATHAN RIOS MD 788.1 Dysuria 10/14/2010 WU LOZADA, NOEMI S 788.1 Dysuria 10/14/2010 WU LOZADA, NOEMI S 788.1 Dysuria 10/14/2010 TOBY JANE, ROSELINE Thakur 788.1 Dysuria 10/14/2010 ALYSE LIMA 788.1 Dysuria 10/14/2010 ALYSE LIMA 788.1 Dysuria 10/14/2010 WU LOZADA, NOEMI S 788.1 Dysuria 10/14/2010 WU LOZADA, NOEMI S 788.1 Dysuria 10/14/2010 TOBY PHD, ROSELINE Thakur 788.1 Dysuria 10/14/2010 JOSE WASHBURN APRNA S 788.1 Dysuria 10/20/2010 TOBY PHD, ROSELINE Thakur 311 MO DEPRESS NOS 10/20/2010 TOBY PHD, ROSELINE Thakur 311 MO DEPRESS NOS 10/20/2010 311 MO DEPRESS NOS 10/20/2010 JOSE WASHBURN APRNA S 311 MO DEPRESS NOS 10/20/2010 JOSE WASHBURN APRNA S 311 MO DEPRESS NOS 10/20/2010 SCHULZ DO TREVOR K 311 MO DEPRESS NOS 10/20/2010 311 MO DEPRESS NOS 10/20/2010 DIPTI WASHBURN APRNNDA S 311 MO DEPRESS NOS 10/20/2010 JOSE WASHBURN APRNA S 311 MO DEPRESS NOS 10/20/2010 TOBY PHD, ROSELINE Thakur 311 MO DEPRESS NOS 10/20/2010 311 MO DEPRESS NOS 10/20/2010 311 MO DEPRESS NOS 10/20/2010 311 MO DEPRESS NOS 10/20/2010 LURDES SCHULZ DOA K 311 MO DEPRESS NOS 10/20/2010 TOBY PHD, ROSELINE Thakur 311 MO DEPRESS NOS 10/20/2010 JAZZ STROUD, TREVOR K 311 MO DEPRESS NOS 10/20/2010 GABBIE MAYORGA APRN 311 MO DEPRESS NOS 10/20/2010 YONATHAN RIOS MD 311 MO DEPRESS NOS 10/20/2010 YONATHAN RIOS MD 311 MO DEPRESS NOS 10/20/2010 TOBY PHD, ROSELINE Thakur 311 MO DEPRESS NOS 10/20/2010 TOBY PHD, ROSELINE Thakur 311 MO DEPRESS NOS 10/20/2010 NOEMI WASHBURN APRN S 311 MO DEPRESS NOS 10/20/2010 TOBY PHD, ROSELINE Thakur 311 MO DEPRESS NOS 10/20/2010 YONATHAN RIOS MD 311 MO DEPRESS NOS 10/20/2010 DIPTI WASHBURN APRNNDA S 311 MO DEPRESS NOS 10/20/2010 JOSE WASHBURN APRNA S 311 MO DEPRESS NOS 10/20/2010 GABBIE MAYORGA APRN 311 MO DEPRESS NOS 10/20/2010 TOBY PHD, ROSELINE Thakur 311 MO DEPRESS NOS 10/20/2010 TOBY PHD, ROSELINE Thakur 311 MO DEPRESS NOS 10/20/2010 YONATHAN RIOS MD 311 MO DEPRESS NOS 10/20/2010 TOBY PHD, ROSELINE Thakur 311 MO DEPRESS NOS 10/20/2010 MAYORGA CHAIR, GABBIE HOMAR 311 MO DEPRESS NOS 10/20/2010 SCHULZ DO, TREVOR K 311 MO DEPRESS NOS 10/20/2010 WU CHAIR, NOEMI S 311 MO DEPRESS NOS 10/20/2010 TOBY PHD, ROSELINE Thakur 311 MO DEPRESS NOS 10/20/2010 TOBY PHD, ROSELINE Thakur 311 MO DEPRESS NOS 10/20/2010 MAYORGA CHAIR, GABBIE GRAF 311 MO DEPRESS NOS 10/20/2010 TOBY PHD, ROSELINE Thakur 311 MO DEPRESS NOS 10/20/2010 BLANCA ROBINS, YONATHAN 311 MO DEPRESS NOS 10/20/2010 OWEN CHAIR, LESLY [place] 311 MO DEPRESS NOS 10/20/2010 TOBY PHD, ROSELINE Thakur 311 MO DEPRESS NOS 10/20/2010 JENNIFER CHAIR, ARIANE R 311 MO DEPRESS NOS 10/20/2010 TOBY PHD, ROSELINE Thakur 311 MO DEPRESS NOS 10/20/2010 LILLY CHAIR, SP [place] 311 MO DEPRESS NOS 10/20/2010 SCHULZ DO, TREVOR K 311 MO DEPRESS NOS 10/20/2010 TOBY PHD, ROSELINE Thakur 311 MO DEPRESS NOS 10/20/2010 YONATHAN RIOS MD 311 MO DEPRESS NOS 10/20/2010 TOBY PHD, ROSELINE Thakur 311 MO DEPRESS NOS 10/20/2010 LOYD ROBINS, NADINE Baum 311 MO DEPRESS NOS 10/20/2010 WU ARROYON, NOEMI S 311 MO DEPRESS NOS 10/20/2010 TOBY PHD, ROSELINE Thakur 311 MO DEPRESS NOS 10/20/2010 WU ARROYON, NOEMI S 311 MO DEPRESS NOS 10/20/2010 YONATHAN RIOS MD 311 MO DEPRESS NOS 10/20/2010 WU ARROYON, NOEMI S 311 MO DEPRESS NOS 10/20/2010 WU CHAIR, NOEMI S 311 MO DEPRESS NOS 10/20/2010 TOBY PHD, ROSELINE Thakur 311 MO DEPRESS NOS 10/20/2010 LEXI FRENCH TEACHER, ALYSE M 311 MO DEPRESS NOS 10/20/2010 LEXI FRENCH TEACHER, ALYSE M 311 MO DEPRESS NOS 10/20/2010 WU CHAIR, NOEMI S 311 MO DEPRESS NOS 10/20/2010 WU CHAIR, NOEMI S 311 MO DEPRESS NOS 10/20/2010 ROSELINE LUIS PHD 311 MO DEPRESS NOS 10/20/2010 NOEMI WASHBURN APRN S 311 MO DEPRESS NOS 12/08/2010 ROSELINE LUIS PHD 053.9 Herpes Zoster (shingles) 12/08/2010 ROSELINE LUIS PHD 719.42 Joint Pain, Localized In The Elbow 12/08/2010 ROSELINE LUIS PHD 053.9 Herpes Zoster (shingles) 12/08/2010 ROSELINE LUIS PHD 719.42 Joint Pain, Localized In The Elbow 12/08/2010 053.9 Herpes Zoster (shingles) 12/08/2010 719.42 Joint Pain, Localized In The Elbow 12/08/2010 WU LOZADA NOEMI S 053.9 Herpes Zoster (shingles) 12/08/2010 WU CHAIR, NOEMI S 719.42 Joint Pain, Localized In The Elbow 12/08/2010 UW ARROYON, NOEMI S 053.9 Herpes Zoster (shingles) 12/08/2010 WU ARROYON, NOEMI S 719.42 Joint Pain, Localized In The Elbow 12/08/2010 SCHULZ DO, TREVOR K 053.9 Herpes Zoster (shingles) 12/08/2010 SCHULZ DO, TREVOR K 719.42 Joint Pain, Localized In The Elbow 12/08/2010 053.9 Herpes Zoster (shingles) 12/08/2010 719.42 Joint Pain, Localized In The Elbow 12/08/2010 WU CHAIR, NOEMI S 053.9 Herpes Zoster (shingles) 12/08/2010 WU CHAIR, NOEMI S 719.42 Joint Pain, Localized In The Elbow 12/08/2010 WU CHAIR, NOEMI S 053.9 Herpes Zoster (shingles) 12/08/2010 WU LOZADA, NOEMI S 719.42 Joint Pain, Localized In The Elbow 12/08/2010 ROSELINE LUIS PHD 053.9 Herpes Zoster (shingles) 12/08/2010 ROSELINE LUIS PHD 719.42 Joint Pain, Localized In The Elbow 12/08/2010 053.9 Herpes Zoster (shingles) 12/08/2010 719.42 Joint Pain, Localized In The Elbow 12/08/2010 053.9 Herpes Zoster (shingles) 12/08/2010 719.42 Joint Pain, Localized In The Elbow 12/08/2010 053.9 Herpes Zoster (shingles) 12/08/2010 719.42 Joint Pain, Localized In The Elbow 12/08/2010 TREVOR SCHULZ DO K 053.9 Herpes Zoster (shingles) 12/08/2010 TREVOR SCHULZ DO K 719.42 Joint Pain, Localized In The Elbow 12/08/2010 ROSELINE LUIS PHD 053.9 Herpes Zoster (shingles) 12/08/2010 ROSELINE LUIS PHD 719.42 Joint Pain, Localized In The Elbow 12/08/2010 TREVOR SCHULZ DO K 053.9 Herpes Zoster (shingles) 12/08/2010 TREVOR SCHULZ DO K 719.42 Joint Pain, Localized In The Elbow 12/08/2010 GABBIE MAYORGA APRN 053.9 Herpes Zoster (shingles) 12/08/2010 GABBIE MAYORGA APRN 719.42 Joint Pain, Localized In The Elbow 12/08/2010 YONATHAN RIOS MD 053.9 Herpes Zoster (shingles) 12/08/2010 YONATHAN RIOS MD 719.42 Joint Pain, Localized In The Elbow 12/08/2010 YONATHAN RIOS MD 053.9 Herpes Zoster (shingles) 12/08/2010 YONATHAN RIOS MD 719.42 Joint Pain, Localized In The Elbow 12/08/2010 ROSELINE LUIS PHD 053.9 Herpes Zoster (shingles) 12/08/2010 ROSELINE LUIS PHD 719.42 Joint Pain, Localized In The Elbow 12/08/2010 ROSELINE LUIS PHD 053.9 Herpes Zoster (shingles) 12/08/2010 ROSELINE LUIS PHD 719.42 Joint Pain, Localized In The Elbow 12/08/2010 NOEMI WASHBURN APRN S 053.9 Herpes Zoster (shingles) 12/08/2010 NOEMI WASHBURN APRN 719.42 Joint Pain, Localized In The Elbow 12/08/2010 ROSELINE LUIS PHD 053.9 Herpes Zoster (shingles) 12/08/2010 ROSELINE LUIS PHD 719.42 Joint Pain, Localized In The Elbow 12/08/2010 YONATHAN RIOS MD 053.Haroon Herpes Zoster (shingles) 12/08/2010 YONATHAN RIOS MD 719.42 Joint Pain, Localized In The Elbow 12/08/2010 WU CHAIR NOEMI S 053.9 Herpes Zoster (shingles) 12/08/2010 WU CHAIR, NOEMI S 719.42 Joint Pain, Localized In The Elbow 12/08/2010 WU CHAIR, NOEMI S 053.9 Herpes Zoster (shingles) 12/08/2010 WU LOZADA NOEMI S 719.42 Joint Pain, Localized In The Elbow 12/08/2010 GABBIE MAYORGA APRN 053.9 Herpes Zoster (shingles) 12/08/2010 GABBIE MAYORGA APRN 719.42 Joint Pain, Localized In The Elbow 12/08/2010 ROSELINE LUIS PHD 053.9 Herpes Zoster (shingles) 12/08/2010 ROSELINE LUIS PHD 719.42 Joint Pain, Localized In The Elbow 12/08/2010 ROSELINE LUIS PHD 053.9 Herpes Zoster (shingles) 12/08/2010 ROSELINE LUIS PHD 719.42 Joint Pain, Localized In The Elbow 12/08/2010 YONATHAN RIOS MD 053.9 Herpes Zoster (shingles) 12/08/2010 YONATHAN RIOS MD 719.42 Joint Pain, Localized In The Elbow 12/08/2010 ROSELINE LUIS PHD 053.9 Herpes Zoster (shingles) 12/08/2010 ROSELINE LUIS PHD 719.42 Joint Pain, Localized In The Elbow 12/08/2010 GABBIE MAYORGA APRN 053.9 Herpes Zoster (shingles) 12/08/2010 GABBIE MAYORGA APRN 719.42 Joint Pain, Localized In The Elbow 12/08/2010 SCHULZ DOLURDESA K 053.9 Herpes Zoster (shingles) 12/08/2010 SCHULZ DO TREVOR K 719.42 Joint Pain, Localized In The Elbow 12/08/2010 NOEMI WASHBURN APRN S 053.9 Herpes Zoster (shingles) 12/08/2010 NOEMI WASHBURN APRN S 719.42 Joint Pain, Localized In The Elbow 12/08/2010 ROSELINE LUIS PHD 053.9 Herpes Zoster (shingles) 12/08/2010 ROSELINE LUIS PHD 719.42 Joint Pain, Localized In The Elbow 12/08/2010 ROSELINE LUIS PHD 053.9 Herpes Zoster (shingles) 12/08/2010 ROSELINE LUIS PHD 719.42 Joint Pain, Localized In The Elbow 12/08/2010 TIERRA LOZADA GABBIE HOMAR 053.9 Herpes Zoster (shingles) 12/08/2010 TIERRA LOZADA GABBIE HOMAR 719.42 Joint Pain, Localized In The Elbow 12/08/2010 ROSELINE LUIS PHD 053.9 Herpes Zoster (shingles) 12/08/2010 ROSELINE LUIS PHD 719.42 Joint Pain, Localized In The Elbow 12/08/2010 YONATHAN RIOS MD 053.9 Herpes Zoster (shingles) 12/08/2010 YONATHAN RIOS MD 719.42 Joint Pain, Localized In The Elbow 12/08/2010 LESLY WEAVER APRN R 053.9 Herpes Zoster (shingles) 12/08/2010 LESLY WEAVER APRN R 719.42 Joint Pain, Localized In The Elbow 12/08/2010 ROSELINE LUIS PHD 053.9 Herpes Zoster (shingles) 12/08/2010 ROSELINE LUIS PHD 719.42 Joint Pain, Localized In The Elbow 12/08/2010 JENNIFER LOZADA ARIANE R 053.9 Herpes Zoster (shingles) 12/08/2010 ISMAEL RODRIGUEZ APRNINA R 719.42 Joint Pain, Localized In The Elbow 12/08/2010 ROSELINE LUIS PHD 053.9 Herpes Zoster (shingles) 12/08/2010 ROSELINE LUIS PHD 719.42 Joint Pain, Localized In The Elbow 12/08/2010 SP CARR APRN 053.9 Herpes Zoster (shingles) 12/08/2010 SP CARR APRN 719.42 Joint Pain, Localized In The Elbow 12/08/2010 SCHULZ DO, TREVOR K 053.9 Herpes Zoster (shingles) 12/08/2010 SCHULZ DO, TREVOR K 719.42 Joint Pain, Localized In The Elbow 12/08/2010 ROSELINE LUIS PHD 053.9 Herpes Zoster (shingles) 12/08/2010 ROSELINE LUIS PHD 719.42 Joint Pain, Localized In The Elbow 12/08/2010 YONATHAN RIOS MD3.Haroon Herpes Zoster (shingles) 12/08/2010 YONATHAN RIOS MD 719.42 Joint Pain, Localized In The Elbow 12/08/2010 ROSELINE LUIS PHD 053.9 Herpes Zoster (shingles) 12/08/2010 ROSELINE LUIS PHD 719.42 Joint Pain, Localized In The Elbow 12/08/2010 NADINE HARP MD 053.9 Herpes Zoster (shingles) 12/08/2010 NADINE HARP MD 719.42 Joint Pain, Localized In The Elbow 12/08/2010 WU LOZADA NOEMI S 053.9 Herpes Zoster (shingles) 12/08/2010 WU LOZADA, NOEMI S 719.42 Joint Pain, Localized In The Elbow 12/08/2010 ROSELINE LUIS PHD 053.9 Herpes Zoster (shingles) 12/08/2010 ROSELINE LUIS PHD 719.42 Joint Pain, Localized In The Elbow 12/08/2010 WU LOZADA, NOEMI S 053.9 Herpes Zoster (shingles) 12/08/2010 WU LOZADA, NOEMI S 719.42 Joint Pain, Localized In The Elbow 12/08/2010 YONATHAN RIOS MD 053.9 Herpes Zoster (shingles) 12/08/2010 YONATHAN RIOS MD 719.42 Joint Pain, Localized In The Elbow 12/08/2010 WU CHAIR, NOEMI S 053.9 Herpes Zoster (shingles) 12/08/2010 WU LOZADA, NOEMI S 719.42 Joint Pain, Localized In The Elbow 12/08/2010 WU LOZADA, NOEMI S 053.9 Herpes Zoster (shingles) 12/08/2010 WU LOZADA NOEMI S 719.42 Joint Pain, Localized In The Elbow 12/08/2010 ROSELINE LUIS PHD 053.9 Herpes Zoster (shingles) 12/08/2010 ROSELINE LUSI PHD 719.42 Joint Pain, Localized In The Elbow 12/08/2010 ALYSE LIMA M 053.9 Herpes Zoster (shingles) 12/08/2010 LEXI FRENCH TEACHERALYSE 719.42 Joint Pain, Localized In The Elbow 12/08/2010 LEXI FRENCH TEACHERALYSE M 053.9 Herpes Zoster (shingles) 12/08/2010 LEXI FRENCH TEACHER, ALYSE M 719.42 Joint Pain, Localized In The Elbow 12/08/2010 DIPTI WASHBURN APRNNDA S 053.9 Herpes Zoster (shingles) 12/08/2010 WU LOZADA NOEMI S 719.42 Joint Pain, Localized In The Elbow 12/08/2010 JOSE WASHBURN APRNA S 053.9 Herpes Zoster (shingles) 12/08/2010 DIPTI WASHBURN APRNNDA S 719.42 Joint Pain, Localized In The Elbow 12/08/2010 ROSELINE LUIS PHD 053.9 Herpes Zoster (shingles) 12/08/2010 ROSELINE LUIS PHD 719.42 Joint Pain, Localized In The Elbow 12/08/2010 WU LOZADA NOEMI S 053.9 Herpes Zoster (shingles) 12/08/2010 DIPTI WASHBURN APRNNDA S 719.42 Joint Pain, Localized In The Elbow 12/13/2010 Ot 250.00 DIAB AILEEN WO COMPL, TYPE II OR UNSPEC TY 12/13/2010 Ot 278.01 MORBID OBESITY 12/13/2010 Ot 414.00 CORON ATHEROSCLER NOS TYPE VESSEL, NATIV 12/13/2010 Ot 458.0 ORTHOSTATIC HYPOTENSION 12/13/2010 Ot 780.4 DIZZINESS AND GIDDINESS 12/13/2010 Ot V58.67 LONG-TERM ( CURRENT) USE OF INSULIN 12/13/2010 Ot V58.69 OTH MED,LT, CURRENT USE 12/13/2010 Ot V85.43 BODY MASS INDEX 50.0-59.9, ADULT 12/14/2010 ROSELINE LUIS PHD 551.8 Hernia Of Other Specified Sites With Gangrene 12/14/2010 ROSELINE LUIS PHD 780.2 Syncope And Collapse 12/14/2010 ROSELINE LUIS PHD 551.8 Hernia Of Other Specified Sites With Gangrene 12/14/2010 ROSELINE LUIS PHD 780.2 Syncope And Collapse 12/14/2010 551.8 Hernia Of Other Specified Sites With Gangrene 12/14/2010 780.2 Syncope And Collapse 12/14/2010 WU CHAIR, NOEMI S 551.8 Hernia Of Other Specified Sites With Gangrene 12/14/2010 WU CHAIR, NOEMI S 780.2 Syncope And Collapse 12/14/2010 WU CHAIR, NOEMI S 551.8 Hernia Of Other Specified Sites With Gangrene 12/14/2010 WU CHAIR, NOEMI S 780.2 Syncope And Collapse 12/14/2010 TREVOR SCHULZ DO 551.8 Hernia Of Other Specified Sites With Gangrene 12/14/2010 TREVOR SCHULZ DO 780.2 Syncope And Collapse 12/14/2010 551.8 Hernia Of Other Specified Sites With Gangrene 12/14/2010 780.2 Syncope And Collapse 12/14/2010 WU CHAIR, NOEMI S 551.8 Hernia Of Other Specified Sites With Gangrene 12/14/2010 WU CHAIR, NOEMI S 780.2 Syncope And Collapse 12/14/2010 WU CHAIR, NOEMI S 551.8 Hernia Of Other Specified Sites With Gangrene 12/14/2010 WU CHAIR, NOEMI S 780.2 Syncope And Collapse 12/14/2010 ROSELINE LUIS PHD 551.8 Hernia Of Other Specified Sites With Gangrene 12/14/2010 ROSELINE LUIS PHD 780.2 Syncope And Collapse 12/14/2010 551.8 Hernia Of Other Specified Sites With Gangrene 12/14/2010 780.2 Syncope And Collapse 12/14/2010 551.8 Hernia Of Other Specified Sites With Gangrene 12/14/2010 780.2 Syncope And Collapse 12/14/2010 551.8 Hernia Of Other Specified Sites With Gangrene 12/14/2010 780.2 fainting ( syncope) 12/14/2010 SCHULZ DO, TREVOR K 551.8 Hernia Of Other Specified Sites With Gangrene 12/14/2010 JAZZ DO, TREVOR K 780.2 fainting (syncope) 12/14/2010 ROSELINE LUIS PHD 551.8 Hernia Of Other Specified Sites With Gangrene 12/14/2010 ROSELINE LUIS PHD 780.2 fainting (syncope) 12/14/2010 JAZZ DO TREVOR K 551.8 Hernia Of Other Specified Sites With Gangrene 12/14/2010 JAZZ STROUD TREVOR K 780.2 fainting (syncope) 12/14/2010 GABBIE MAYORGA APRN 551.8 Hernia Of Other Specified Sites With Gangrene 12/14/2010 GABBIE MAYORGA APRN 780.2 fainting (syncope) 12/14/2010 YONATHAN RIOS MD 551.8 Hernia Of Other Specified Sites With Gangrene 12/14/2010 YONATHAN RIOS MD 780.2 fainting (syncope) 12/14/2010 YONATHAN RIOS MD 551.8 Hernia Of Other Specified Sites With Gangrene 12/14/2010 YONATHAN RIOS MD 780.2 fainting (syncope) 12/14/2010 ROSELINE LUIS PHD 551.8 Hernia Of Other Specified Sites With Gangrene 12/14/2010 ROSELINE LUIS PHD 780.2 fainting (syncope) 12/14/2010 ROSELINE LUIS PHD 551.8 Hernia Of Other Specified Sites With Gangrene 12/14/2010 ROSELINE LUIS PHD 780.2 fainting (syncope) 12/14/2010 NOEMI WASHBURN APRN S 551.8 Hernia Of Other Specified Sites With Gangrene 12/14/2010 NOEMI WASHBURN APRN S 780.2 fainting (syncope) 12/14/2010 ROSELINE LUIS PHD 551.8 Hernia Of Other Specified Sites With Gangrene 12/14/2010 ROSELINE LUIS PHD 780.2 fainting (syncope) 12/14/2010 YONATHAN RIOS MD 551.8 Hernia Of Other Specified Sites With Gangrene 12/14/2010 YONATHAN RIOS MD 780.2 fainting (syncope) 12/14/2010 NOEMI WASHBURN APRN S 551.8 Hernia Of Other Specified Sites With Gangrene 12/14/2010 WU CHAIR, NOEMI S 780.2 fainting (syncope) 12/14/2010 WU CHAIR, NOEMI S 551.8 Hernia Of Other Specified Sites With Gangrene 12/14/2010 WU CHAIR, NOEMI S 780.2 fainting (syncope) 12/14/2010 TIERRA LOZADA GABBIE HOMAR 551.8 Hernia Of Other Specified Sites With Gangrene 12/14/2010 TIERRA LOZADA GABBIE HOMAR 780.2 fainting (syncope) 12/14/2010 ROSELINE LUIS PHD 551.8 Hernia Of Other Specified Sites With Gangrene 12/14/2010 ROSELINE LUIS PHD 780.2 fainting (syncope) 12/14/2010 ROSELINE LUIS PHD 551.8 Hernia Of Other Specified Sites With Gangrene 12/14/2010 ROSELINE LUIS PHD 780.2 fainting (syncope) 12/14/2010 YONATHAN RIOS MD 551.8 Hernia Of Other Specified Sites With Gangrene 12/14/2010 YONATHAN RIOS MD 780.2 fainting (syncope) 12/14/2010 ROSELINE LUIS PHD 551.8 Hernia Of Other Specified Sites With Gangrene 12/14/2010 ROSELINE LUIS PHD 780.2 fainting (syncope) 12/14/2010 TIERRA LOZADA GABBIE HOMAR 551.8 Hernia Of Other Specified Sites With Gangrene 12/14/2010 TIERRA LOZADA GABBIE HOMAR 780.2 fainting (syncope) 12/14/2010 SCHULZ DO, TREVOR K 551.8 Hernia Of Other Specified Sites With Gangrene 12/14/2010 SCHULZ DO, TREVOR K 780.2 fainting (syncope) 12/14/2010 WU NEVILLE, NOEMI S 551.8 Hernia Of Other Specified Sites With Gangrene 12/14/2010 WU CHAIR, NOEMI S 780.2 fainting (syncope) 12/14/2010 ROSELINE LUIS PHD 551.8 Hernia Of Other Specified Sites With Gangrene 12/14/2010 ROSELINE LUIS PHD 780.2 fainting (syncope) 12/14/2010 ROSELINE LUIS PHD 551.8 Hernia Of Other Specified Sites With Gangrene 12/14/2010 ROSELINE LUIS PHD 780.2 fainting (syncope) 12/14/2010 TIERRA LOZADA GABBIE HOMAR 551.8 Hernia Of Other Specified Sites With Gangrene 12/14/2010 TIERRA LOZADA GABBIE GRAF 780.2 fainting (syncope) 12/14/2010 ROSELINE LUIS PHD 551.8 Hernia Of Other Specified Sites With Gangrene 12/14/2010 ROSELINE LUIS PHD 780.2 fainting (syncope) 12/14/2010 YONATHAN RIOS MD1.8 Hernia Of Other Specified Sites With Gangrene 12/14/2010 YONATHAN RIOS MD 780.2 FAINTING (SYNCOPE) 12/14/2010 LESLY WEAVER APRN 551.8 Hernia Of Other Specified Sites With Gangrene 12/14/2010 LESLY WEAVER APRN 780.2 FAINTING (SYNCOPE) 12/14/2010 ROSELINE LUIS PHD 551.8 Hernia Of Other Specified Sites With Gangrene 12/14/2010 ROSELINE LUIS PHD 780.2 FAINTING (SYNCOPE) 12/14/2010 ARIANE RODRIGUEZ APRN 551.8 Hernia Of Other Specified Sites With Gangrene 12/14/2010 ARIANE RODRIGUEZ APRN 780.2 FAINTING (SYNCOPE) 12/14/2010 ROSELINE LUIS PHD 551.8 Hernia Of Other Specified Sites With Gangrene 12/14/2010 ROSELINE LUIS PHD 780.2 FAINTING (SYNCOPE) 12/14/2010 SP CARR APRN 551.8 Hernia Of Other Specified Sites With Gangrene 12/14/2010 SP CARR APRN 780.2 FAINTING (SYNCOPE) 12/14/2010 TREVOR SCHULZ DO 551.8 Hernia Of Other Specified Sites With Gangrene 12/14/2010 TREVOR SCHULZ DO 780.2 FAINTING (SYNCOPE) 12/14/2010 ROSELINE LUIS PHD 551.8 Hernia Of Other Specified Sites With Gangrene 12/14/2010 ROSELINE LUIS PHD 780.2 FAINTING (SYNCOPE) 12/14/2010 YONATHAN RIOS MD 551.8 Hernia Of Other Specified Sites With Gangrene 12/14/2010 YONATHAN RIOS MD 780.2 FAINTING (SYNCOPE) 12/14/2010 ROSELINE LUIS PHD 551.8 Hernia Of Other Specified Sites With Gangrene 12/14/2010 ROSELINE LUIS PHD 780.2 FAINTING (SYNCOPE) 12/14/2010 NADINE HARP MD 551.8 Hernia Of Other Specified Sites With Gangrene 12/14/2010 NADINE HARP MD 780.2 FAINTING (SYNCOPE) 12/14/2010 WU CHAIR, NOEMI S 551.8 Hernia Of Other Specified Sites With Gangrene 12/14/2010 WU CHAIR, NOEMI S 780.2 FAINTING (SYNCOPE) 12/14/2010 ROSELINE LUIS PHD 551.8 Hernia Of Other Specified Sites With Gangrene 12/14/2010 ROSELINE LUIS PHD 780.2 FAINTING (SYNCOPE) 12/14/2010 WU CHAIR, NOEMI S 551.8 Hernia Of Other Specified Sites With Gangrene 12/14/2010 WU CHAIR, NOEMI S 780.2 FAINTING (SYNCOPE) 12/14/2010 YONATHAN RIOS MD 551.8 Hernia Of Other Specified Sites With Gangrene 12/14/2010 YONATHAN RIOS MD 780.2 FAINTING (SYNCOPE) 12/14/2010 WU CHAIR, NOEMI S 551.8 Hernia Of Other Specified Sites With Gangrene 12/14/2010 WU CHAIR, NOEMI S 780.2 FAINTING (SYNCOPE) 12/14/2010 WU CHAIR, NOEMI S 551.8 Hernia Of Other Specified Sites With Gangrene 12/14/2010 WU CHAIR, NOEMI S 780.2 FAINTING (SYNCOPE) 12/14/2010 ROSELINE LIUS PHD 551.8 Hernia Of Other Specified Sites With Gangrene 12/14/2010 ROSELINE LUIS PHD 780.2 FAINTING (SYNCOPE) 12/14/2010 ALYSE LIMA 551.8 Hernia Of Other Specified Sites With Gangrene 12/14/2010 ALYSE LIMA 780.2 FAINTING (SYNCOPE) 12/14/2010 ALYSE LIMA 551.8 Hernia Of Other Specified Sites With Gangrene 12/14/2010 LEXI CNS, ALYSE Holden 780.2 FAINTING (SYNCOPE) 12/14/2010 WU CHAIR, NOEMI S 551.8 Hernia Of Other Specified Sites With Gangrene 12/14/2010 WU CHAIR, NOEMI S 780.2 FAINTING (SYNCOPE) 12/14/2010 WU CHAIR, NOEMI S 551.8 Hernia Of Other Specified Sites With Gangrene 12/14/2010 WUBREANNE ARROYON, NOEMI S 780.2 FAINTING (SYNCOPE) 12/14/2010 ROSELINE LUIS PHD 551.8 Hernia Of Other Specified Sites With Gangrene 12/14/2010 ROSELINE LUIS PHD 780.2 FAINTING (SYNCOPE) 12/14/2010 WU LOZADA, NOEMI S 551.8 Hernia Of Other Specified Sites With Gangrene 12/14/2010 WU LOZADA, NOEMI S 780.2 FAINTING (SYNCOPE) 12/20/2010 ROSELINE LUIS PHD 789.04 Abdominal Pain Left Lower Quadrant 12/20/2010 ROSELINE LUIS PHD 789.30 Abdominal Or Pelvic Swelling Mass Or Lump Unspecified Site 12/20/2010 ROSELINE LUIS PHD 789.04 Abdominal Pain Left Lower Quadrant 12/20/2010 ROSELINE LUIS PHD 789.30 Abdominal Or Pelvic Swelling Mass Or Lump Unspecified Site 12/20/2010 789.04 Abdominal Pain Left Lower Quadrant 12/20/2010 789.30 Abdominal Or Pelvic Swelling Mass Or Lump Unspecified Site 12/20/2010 WU LOZADA, NOEMI S 789.04 Abdominal Pain Left Lower Quadrant 12/20/2010 WU CHAIR, NOEMI S 789.30 Abdominal Or Pelvic Swelling Mass Or Lump Unspecified Site 12/20/2010 WU CHAIR, NOEMI S 789.04 Abdominal Pain Left Lower Quadrant 12/20/2010 WU CHAIR, NOEMI S 789.30 Abdominal Or Pelvic Swelling Mass Or Lump Unspecified Site 12/20/2010 SCHULZ TREVOR STROUD 789.04 Abdominal Pain Left Lower Quadrant 12/20/2010 SCHULZ DOTREVOR 789.30 Abdominal Or Pelvic Swelling Mass Or Lump Unspecified Site 12/20/2010 789.04 Abdominal Pain Left Lower Quadrant 12/20/2010 789.30 Abdominal Or Pelvic Swelling Mass Or Lump Unspecified Site 12/20/2010 WU LOZADA, NOEMI S 789.04 Abdominal Pain Left Lower Quadrant 12/20/2010 WU CHAIR, NOEMI S 789.30 Abdominal Or Pelvic Swelling Mass Or Lump Unspecified Site 12/20/2010 WU LOZADA, NOEMI S 789.04 Abdominal Pain Left Lower Quadrant 12/20/2010 WU LOZADA, NOEMI S 789.30 Abdominal Or Pelvic Swelling Mass Or Lump Unspecified Site 12/20/2010 TOBY PHD, ROSELINE Thakur 789.04 Abdominal Pain Left Lower Quadrant 12/20/2010 TOBY JANE, ROSELINE Thakur 789.30 Abdominal Or Pelvic Swelling Mass Or Lump Unspecified Site 12/20/2010 789.04 Abdominal Pain Left Lower Quadrant 12/20/2010 789.30 Abdominal Or Pelvic Swelling Mass Or Lump Unspecified Site 12/20/2010 789.04 Abdominal Pain Left Lower Quadrant 12/20/2010 789.30 Abdominal Or Pelvic Swelling Mass Or Lump Unspecified Site 12/20/2010 789.04 Abdominal Pain Left Lower Quadrant 12/20/2010 789.30 Abdominal Or Pelvic Swelling Mass Or Lump Unspecified Site 12/20/2010 TREVOR SCHULZ DO 789.04 Abdominal Pain Left Lower Quadrant 12/20/2010 TREVOR SCHULZ DO K 789.30 Abdominal Or Pelvic Swelling Mass Or Lump Unspecified Site 12/20/2010 TOBY JANE, ROSELINE Thakur 789.04 Abdominal Pain Left Lower Quadrant 12/20/2010 TOBY JANE, ROSELINE Thakur 789.30 Abdominal Or Pelvic Swelling Mass Or Lump Unspecified Site 12/20/2010 TREVOR SCHULZ DO K 789.04 Abdominal Pain Left Lower Quadrant 12/20/2010 LURDES SCHULZ DOA K 789.30 Abdominal Or Pelvic Swelling Mass Or Lump Unspecified Site 12/20/2010 GABBIE MAYORGA APRN 789.04 Abdominal Pain Left Lower Quadrant 12/20/2010 GABBIE MAYORGA APRN 789.30 Abdominal Or Pelvic Swelling Mass Or Lump Unspecified Site 12/20/2010 YONATHAN RIOS MD 789.04 Abdominal Pain Left Lower Quadrant 12/20/2010 YONATHAN RIOS MD 789.30 Abdominal Or Pelvic Swelling Mass Or Lump Unspecified Site 12/20/2010 YONATHAN RIOS MD 789.04 Abdominal Pain Left Lower Quadrant 12/20/2010 YONATHAN RIOS MD 789.30 Abdominal Or Pelvic Swelling Mass Or Lump Unspecified Site 12/20/2010 TOBY JANE, ROSELINE Thakur 789.04 Abdominal Pain Left Lower Quadrant 12/20/2010 TOBY JANE, ROSELINE Thakur 789.30 Abdominal Or Pelvic Swelling Mass Or Lump Unspecified Site 12/20/2010 TOBY JANE, ROSELINE Thakur 789.04 Abdominal Pain Left Lower Quadrant 12/20/2010 TOBY JANE, ROSELINE Thakur 789.30 Abdominal Or Pelvic Swelling Mass Or Lump Unspecified Site 12/20/2010 WU LOZADA, NOEMI S 789.04 Abdominal Pain Left Lower Quadrant 12/20/2010 WU APRN, NOEMI S 789.30 Abdominal Or Pelvic Swelling Mass Or Lump Unspecified Site 12/20/2010 ROSELINE LUIS PHD 789.04 Abdominal Pain Left Lower Quadrant 12/20/2010 TOBY JANE, ROSELINE Thakur 789.30 Abdominal Or Pelvic Swelling Mass Or Lump Unspecified Site 12/20/2010 YONATHAN RIOS MD 789.04 Abdominal Pain Left Lower Quadrant 12/20/2010 YONATHAN RIOS MD 789.30 Abdominal Or Pelvic Swelling Mass Or Lump Unspecified Site 12/20/2010 WU CHAIR, NOEMI S 789.04 Abdominal Pain Left Lower Quadrant 12/20/2010 WU CHAIR, NOEMI S 789.30 Abdominal Or Pelvic Swelling Mass Or Lump Unspecified Site 12/20/2010 WU CHAIR, NOEMI S 789.04 Abdominal Pain Left Lower Quadrant 12/20/2010 WU CHAIR, NOEMI S 789.30 Abdominal Or Pelvic Swelling Mass Or Lump Unspecified Site 12/20/2010 GABBIE MAYORGA APRN 789.04 Abdominal Pain Left Lower Quadrant 12/20/2010 GABBIE MAYORGA APRN 789.30 Abdominal Or Pelvic Swelling Mass Or Lump Unspecified Site 12/20/2010 TOBY JANE, ROSELINE Thakur 789.04 Abdominal Pain Left Lower Quadrant 12/20/2010 ROSELINE LUIS PHD 789.30 Abdominal Or Pelvic Swelling Mass Or Lump Unspecified Site 12/20/2010 ROSELINE LUIS PHD 789.04 Abdominal Pain Left Lower Quadrant 12/20/2010 ROSELINE LUIS PHD 789.30 Abdominal Or Pelvic Swelling Mass Or Lump Unspecified Site 12/20/2010 YONATHAN RIOS MD 789.04 Abdominal Pain Left Lower Quadrant 12/20/2010 YONATHAN RIOS MD 789.30 Abdominal Or Pelvic Swelling Mass Or Lump Unspecified Site 12/20/2010 ROSELINE LUIS PHD 789.04 Abdominal Pain Left Lower Quadrant 12/20/2010 ROSELINE LUIS PHD 789.30 Abdominal Or Pelvic Swelling Mass Or Lump Unspecified Site 12/20/2010 GABBIE MAYORGA APRN 789.04 Abdominal Pain Left Lower Quadrant 12/20/2010 GABBIE MAYORGA APRN 789.30 Abdominal Or Pelvic Swelling Mass Or Lump Unspecified Site 12/20/2010 SCHULZ DO TREVOR K 789.04 Abdominal Pain Left Lower Quadrant 12/20/2010 SCHULZ DO, TREVOR K 789.30 Abdominal Or Pelvic Swelling Mass Or Lump Unspecified Site 12/20/2010 WU LOZADA NOEMI S 789.04 Abdominal Pain Left Lower Quadrant 12/20/2010 WU LOZADA NOEMI S 789.30 Abdominal Or Pelvic Swelling Mass Or Lump Unspecified Site 12/20/2010 ROSELINE LUIS PHD 789.04 Abdominal Pain Left Lower Quadrant 12/20/2010 ROSELINE LUIS PHD 789.30 Abdominal Or Pelvic Swelling Mass Or Lump Unspecified Site 12/20/2010 ROSELINE LUIS PHD 789.04 Abdominal Pain Left Lower Quadrant 12/20/2010 ROSELINE LUIS PHD 789.30 Abdominal Or Pelvic Swelling Mass Or Lump Unspecified Site 12/20/2010 GABBIE MAYORGA APRN 789.04 Abdominal Pain Left Lower Quadrant 12/20/2010 GABBIE MAYORGA APRN 789.30 Abdominal Or Pelvic Swelling Mass Or Lump Unspecified Site 12/20/2010 ROSELINE LUIS PHD 789.04 Abdominal Pain Left Lower Quadrant 12/20/2010 ROSELINE LUIS PHD 789.30 Abdominal Or Pelvic Swelling Mass Or Lump Unspecified Site 12/20/2010 YONATHAN RIOS MD 789.04 Abdominal Pain Left Lower Quadrant 12/20/2010 YONATHAN RIOS MD 789.30 Abdominal Or Pelvic Swelling Mass Or Lump Unspecified Site 12/20/2010 OWEN ARROYON, LESLY R 789.04 Abdominal Pain Left Lower Quadrant 12/20/2010 OWEN LOZADA, LESLY R 789.30 Abdominal Or Pelvic Swelling Mass Or Lump Unspecified Site 12/20/2010 ROSELINE LUIS PHD 789.04 Abdominal Pain Left Lower Quadrant 12/20/2010 ROSELINE LUIS PHD 789.30 Abdominal Or Pelvic Swelling Mass Or Lump Unspecified Site 12/20/2010 JENNIFER ARROYON, ARIANE R 789.04 Abdominal Pain Left Lower Quadrant 12/20/2010 JENNIFER LOZADA, ARIANE R 789.30 Abdominal Or Pelvic Swelling Mass Or Lump Unspecified Site 12/20/2010 ROSELINE LUIS PHD 789.04 Abdominal Pain Left Lower Quadrant 12/20/2010 ROSELINE LUIS PHD 789.30 Abdominal Or Pelvic Swelling Mass Or Lump Unspecified Site 12/20/2010 SP CARR APRN 789.04 Abdominal Pain Left Lower Quadrant 12/20/2010 SP CARR APRN 789.30 Abdominal Or Pelvic Swelling Mass Or Lump Unspecified Site 12/20/2010 SCHULZ TREVOR STROUD 789.04 Abdominal Pain Left Lower Quadrant 12/20/2010 TREVOR SCHULZ DO K 789.30 Abdominal Or Pelvic Swelling Mass Or Lump Unspecified Site 12/20/2010 ROSELINE LUIS PHD 789.04 Abdominal Pain Left Lower Quadrant 12/20/2010 ROSELINE LUIS PHD 789.30 Abdominal Or Pelvic Swelling Mass Or Lump Unspecified Site 12/20/2010 YONATHAN RIOS MD 789.04 Abdominal Pain Left Lower Quadrant 12/20/2010 YONATHAN RIOS MD 789.30 Abdominal Or Pelvic Swelling Mass Or Lump Unspecified Site 12/20/2010 ROSELINE LUIS PHD 789.04 Abdominal Pain Left Lower Quadrant 12/20/2010 ROSELINE LUIS PHD 789.30 Abdominal Or Pelvic Swelling Mass Or Lump Unspecified Site 12/20/2010 NADINE HARP MD 789.04 Abdominal Pain Left Lower Quadrant 12/20/2010 NADINE HARP MD 789.30 Abdominal Or Pelvic Swelling Mass Or Lump Unspecified Site 12/20/2010 WU CHAIR, NOEMI S 789.04 Abdominal Pain Left Lower Quadrant 12/20/2010 WU CHAIR, NOEMI S 789.30 Abdominal Or Pelvic Swelling Mass Or Lump Unspecified Site 12/20/2010 TOBY PHD, ROSELINE Thakur 789.04 Abdominal Pain Left Lower Quadrant 12/20/2010 TOBY JANE, ROSELINE Thakur 789.30 Abdominal Or Pelvic Swelling Mass Or Lump Unspecified Site 12/20/2010 WU CHAIR, NOEMI S 789.04 Abdominal Pain Left Lower Quadrant 12/20/2010 WU CHAIR, NOEMI S 789.30 Abdominal Or Pelvic Swelling Mass Or Lump Unspecified Site 12/20/2010 YONATHAN RIOS MD 789.04 Abdominal Pain Left Lower Quadrant 12/20/2010 YONATHAN RIOS MD 789.30 Abdominal Or Pelvic Swelling Mass Or Lump Unspecified Site 12/20/2010 WU ARROYON, NOEMI S 789.04 Abdominal Pain Left Lower Quadrant 12/20/2010 WU CHAIR, NOEMI S 789.30 Abdominal Or Pelvic Swelling Mass Or Lump Unspecified Site 12/20/2010 WU CHAIR, NOEMI S 789.04 Abdominal Pain Left Lower Quadrant 12/20/2010 WU CHAIR, NOEMI S 789.30 Abdominal Or Pelvic Swelling Mass Or Lump Unspecified Site 12/20/2010 TOBY JANE, ROSELINE Thkaur 789.04 Abdominal Pain Left Lower Quadrant 12/20/2010 TOBY JANE, ROSELINE Thakur 789.30 Abdominal Or Pelvic Swelling Mass Or Lump Unspecified Site 12/20/2010 ALYSE LIMA 789.04 Abdominal Pain Left Lower Quadrant 12/20/2010 ALYSE LIMA M 789.30 Abdominal Or Pelvic Swelling Mass Or Lump Unspecified Site 12/20/2010 ALYSE LIMA M 789.04 Abdominal Pain Left Lower Quadrant 12/20/2010 ALYSE LIMA M 789.30 Abdominal Or Pelvic Swelling Mass Or Lump Unspecified Site 12/20/2010 WU LOZADA, NOEMI S 789.04 Abdominal Pain Left Lower Quadrant 12/20/2010 WU LOZADA, NOEMI S 789.30 Abdominal Or Pelvic Swelling Mass Or Lump Unspecified Site 12/20/2010 NOEMI WASHBURN APRN S 789.04 Abdominal Pain Left Lower Quadrant 12/20/2010 DIPTI WASHBURN APRNNDA S 789.30 Abdominal Or Pelvic Swelling Mass Or Lump Unspecified Site 12/20/2010 ROSELINE LUIS PHD 789.04 Abdominal Pain Left Lower Quadrant 12/20/2010 ROSELINE LUIS PHD 789.30 Abdominal Or Pelvic Swelling Mass Or Lump Unspecified Site 12/20/2010 NOEMI WASHBURN APRN S 789.04 Abdominal Pain Left Lower Quadrant 12/20/2010 NOEMI WASHBURN APRN S 789.30 Abdominal Or Pelvic Swelling Mass Or Lump Unspecified Site 01/31/2011 Ot 250.00 DIAB AILEEN WO COMPL, TYPE II OR UNSPEC TY 01/31/2011 Ot 401.9 HYPERTENSION NOS 01/31/2011 Ot 780.39 OTHER CONVULSIONS 01/31/2011 Ot 787.01 NAUSEA WITH VOMITING 01/31/2011 Ot 787.91 DIARRHEA 01/31/2011 Ot V58.69 OTH MED,LT, CURRENT USE 02/14/2011 ROSELINE LUIS PHD 535.50 Gastritis Unspec 02/14/2011 ROSELINE LUIS PHD 535.60 Duodenitis (without Hemorrhage) 02/14/2011 ROSELINE LUIS PHD 789.06 Abdominal Pain Epigastric 02/14/2011 ROSELINE LUIS PHD V76.51 Special Screening For Malignant Neoplasms Colon 02/14/2011 ROSELINE LUIS PHD 535.50 Gastritis Unspec 02/14/2011 ROSELINE LUIS PHD 535.60 Duodenitis (without Hemorrhage) 02/14/2011 ROSELINE LUIS PHD 789.06 Abdominal Pain Epigastric 02/14/2011 ROSELINE LUIS PHD V76.51 Special Screening For Malignant Neoplasms Colon 02/14/2011 535.50 Gastritis Unspec 02/14/2011 535.60 Duodenitis ( without Hemorrhage) 02/14/2011 789.06 Abdominal Pain Epigastric 02/14/2011 V76.51 Special Screening For Malignant Neoplasms Colon 02/14/2011 NOEMI WASHBURN APRN S 535.50 Gastritis Unspec 02/14/2011 WU CHAIR, NOEMI S 535.60 Duodenitis (without Hemorrhage) 02/14/2011 WU CHAIR, NOEMI S 789.06 Abdominal Pain Epigastric 02/14/2011 WU CHAIR, NOEMI S V76.51 Special Screening For Malignant Neoplasms Colon 02/14/2011 WU CHAIR, NOEMI S 535.50 Gastritis Unspec 02/14/2011 WU CHAIR, NOEMI S 535.60 Duodenitis (without Hemorrhage) 02/14/2011 WU CHAIR, NOEMI S 789.06 Abdominal Pain Epigastric 02/14/2011 WU CHAIR, NOEMI S V76.51 Special Screening For Malignant Neoplasms Colon 02/14/2011 SCHULZ DO TREVOR K 535.50 Gastritis Unspec 02/14/2011 SCHULZ DO, TREVOR K 535.60 Duodenitis (without Hemorrhage) 02/14/2011 SCHULZ DO TREVOR K 789.06 Abdominal Pain Epigastric 02/14/2011 SCHULZ DO TREVOR K V76.51 Special Screening For Malignant Neoplasms Colon 02/14/2011 535.50 Gastritis Unspec 02/14/2011 535.60 Duodenitis ( without Hemorrhage) 02/14/2011 789.06 Abdominal Pain Epigastric 02/14/2011 V76.51 Special Screening For Malignant Neoplasms Colon 02/14/2011 WU CHAIR, NOEMI S 535.50 Gastritis Unspec 02/14/2011 WU CHAIR, NOEMI S 535.60 Duodenitis (without Hemorrhage) 02/14/2011 WU CHAIR, NOEMI S 789.06 Abdominal Pain Epigastric 02/14/2011 WU CHAIR, NOEMI S V76.51 Special Screening For Malignant Neoplasms Colon 02/14/2011 WU CHAIR, NOEMI S 535.50 Gastritis Unspec 02/14/2011 WU CHAIR, NOEMI S 535.60 Duodenitis (without Hemorrhage) 02/14/2011 WU CHAIR, NOEMI S 789.06 Abdominal Pain Epigastric 02/14/2011 WU CHAIR, NOEMI S V76.51 Special Screening For Malignant Neoplasms Colon 02/14/2011 TOBY JANE, ROSELINE Thakur 535.50 Gastritis Unspec 02/14/2011 ROSELINE LUIS PHD 535.60 Duodenitis (without Hemorrhage) 02/14/2011 ROSELINE LUIS PHD 789.06 Abdominal Pain Epigastric 02/14/2011 ROSELINE LUIS PHD V76.51 Special Screening For Malignant Neoplasms Colon 02/14/2011 535.50 Gastritis Unspec 02/14/2011 535.60 Duodenitis ( without Hemorrhage) 02/14/2011 789.06 Abdominal Pain Epigastric 02/14/2011 V76.51 Special Screening For Malignant Neoplasms Colon 02/14/2011 535.50 Gastritis Unspec 02/14/2011 535.60 Duodenitis ( without Hemorrhage) 02/14/2011 789.06 Abdominal Pain Epigastric 02/14/2011 V76.51 Special Screening For Malignant Neoplasms Colon 02/14/2011 535.50 Gastritis Unspec 02/14/2011 535.60 Duodenitis ( without Hemorrhage) 02/14/2011 789.06 Abdominal Pain Epigastric 02/14/2011 V76.51 Special Screening For Malignant Neoplasms Colon 02/14/2011 TREVOR SCHULZ DO K 535.50 Gastritis Unspec 02/14/2011 JAZZ STROUD TREVOR K 535.60 Duodenitis (without Hemorrhage) 02/14/2011 JAZZ STROUD TREVOR K 789.06 Abdominal Pain Epigastric 02/14/2011 JAZZ STROUD TREVOR K V76.51 Special Screening For Malignant Neoplasms Colon 02/14/2011 ROSELINE LUIS PHD 535.50 Gastritis Unspec 02/14/2011 ROSELINE LUIS PHD 535.60 Duodenitis (without Hemorrhage) 02/14/2011 ROSELINE LUIS PHD 789.06 Abdominal Pain Epigastric 02/14/2011 ROSELINE LUIS PHD V76.51 Special Screening For Malignant Neoplasms Colon 02/14/2011 JAZZ STROUD TREVOR K 535.50 Gastritis Unspec 02/14/2011 SCHULZ DO TREVOR K 535.60 Duodenitis (without Hemorrhage) 02/14/2011 JAZZ STROUD TREVOR K 789.06 Abdominal Pain Epigastric 02/14/2011 JAZZ STROUD TREVOR K V76.51 Special Screening For Malignant Neoplasms Colon 02/14/2011 TIERRA LOZADA GABBIE GRAF 535.50 Gastritis Unspec 02/14/2011 TIERRA LOZADA GABBIE GRAF 535.60 Duodenitis (without Hemorrhage) 02/14/2011 TIERRA LOZADA GABBIE GRAF 789.06 Abdominal Pain Epigastric 02/14/2011 TIERRA LOZADA GABBIE GRAF V76.51 Special Screening For Malignant Neoplasms Colon 02/14/2011 YONATHAN RIOS MD 535.50 Gastritis Unspec 02/14/2011 YONATHAN RIOS MD 535.60 Duodenitis (without Hemorrhage) 02/14/2011 YONATHAN RIOS MD 789.06 Abdominal Pain Epigastric 02/14/2011 YONATHAN RIOS MD V76.51 Special Screening For Malignant Neoplasms Colon 02/14/2011 YONATHAN RIOS MD 535.50 Gastritis Unspec 02/14/2011 YONATHAN RIOS MD 535.60 Duodenitis (without Hemorrhage) 02/14/2011 YONATHAN RIOS MD 789.06 Abdominal Pain Epigastric 02/14/2011 YONATHAN RIOS MD V76.51 Special Screening For Malignant Neoplasms Colon 02/14/2011 ROSELINE LUIS PHD 535.50 Gastritis Unspec 02/14/2011 ROSELINE LUIS PHD 535.60 Duodenitis (without Hemorrhage) 02/14/2011 ROSELINE LUIS PHD 789.06 Abdominal Pain Epigastric 02/14/2011 ROSELINE LUIS PHD V76.51 Special Screening For Malignant Neoplasms Colon 02/14/2011 ROSELINE LUIS PHD 535.50 Gastritis Unspec 02/14/2011 ROSELINE LUIS PHD 535.60 Duodenitis (without Hemorrhage) 02/14/2011 ROSELINE LUIS PHD 789.06 Abdominal Pain Epigastric 02/14/2011 ROSELINE LUIS PHD V76.51 Special Screening For Malignant Neoplasms Colon 02/14/2011 WU ARROYON, NOEMI S 535.50 Gastritis Unspec 02/14/2011 WU CHAIR, NOEMI S 535.60 Duodenitis (without Hemorrhage) 02/14/2011 WU CHAIR, NOEMI S 789.06 Abdominal Pain Epigastric 02/14/2011 WU LOZADA, NOEMI S V76.51 Special Screening For Malignant Neoplasms Colon 02/14/2011 ROSELIEN LUIS PHD 535.50 Gastritis Unspec 02/14/2011 ROSELINE LUIS PHD 535.60 Duodenitis (without Hemorrhage) 02/14/2011 ROSELINE LUIS PHD 789.06 Abdominal Pain Epigastric 02/14/2011 ROSELINE LUIS PHD V76.51 Special Screening For Malignant Neoplasms Colon 02/14/2011 YONATHAN RIOS MD 535.50 Gastritis Unspec 02/14/2011 YONATHAN RIOS MD 535.60 Duodenitis (without Hemorrhage) 02/14/2011 YONATHAN RIOS MD 789.06 Abdominal Pain Epigastric 02/14/2011 YONATHAN RIOS MD V76.51 Special Screening For Malignant Neoplasms Colon 02/14/2011 WU CHAIR, NOEMI S 535.50 Gastritis Unspec 02/14/2011 WU CHAIR, NOEMI S 535.60 Duodenitis (without Hemorrhage) 02/14/2011 WU CHAIR, NOEMI S 789.06 Abdominal Pain Epigastric 02/14/2011 WU CHAIR, NOEMI S V76.51 Special Screening For Malignant Neoplasms Colon 02/14/2011 WU CHAIR, NOEMI S 535.50 Gastritis Unspec 02/14/2011 WU CHAIR, NOEMI S 535.60 Duodenitis (without Hemorrhage) 02/14/2011 WU CHAIR, NOEMI S 789.06 Abdominal Pain Epigastric 02/14/2011 WU CHAIR, NOEMI S V76.51 Special Screening For Malignant Neoplasms Colon 02/14/2011 TIERRA LOZADA GABBIE GRAF 535.50 Gastritis Unspec 02/14/2011 TIERRA LOZADA GABBIE GRAF 535.60 Duodenitis (without Hemorrhage) 02/14/2011 TIERRA LOZADA GABBIE GRAF 789.06 Abdominal Pain Epigastric 02/14/2011 TIERRA LOZADA GABBIE GRAF V76.51 Special Screening For Malignant Neoplasms Colon 02/14/2011 ROSELINE LUIS PHD 535.50 Gastritis Unspec 02/14/2011 ROSELINE LUIS PHD 535.60 Duodenitis (without Hemorrhage) 02/14/2011 ROSELINE LUIS PHD 789.06 Abdominal Pain Epigastric 02/14/2011 ROSELINE LUIS PHD V76.51 Special Screening For Malignant Neoplasms Colon 02/14/2011 ROSELINE LUIS PHD 535.50 Gastritis Unspec 02/14/2011 ROSELINE LUIS PHD 535.60 Duodenitis (without Hemorrhage) 02/14/2011 ROSELINE LUIS PHD 789.06 Abdominal Pain Epigastric 02/14/2011 ROSELINE LUIS PHD V76.51 Special Screening For Malignant Neoplasms Colon 02/14/2011 YONATHAN RIOS MD 535.50 Gastritis Unspec 02/14/2011 YONATHAN RIOS MD 535.60 Duodenitis (without Hemorrhage) 02/14/2011 YONATHAN RISO MD 789.06 Abdominal Pain Epigastric 02/14/2011 YONATHAN RIOS MD V76.51 Special Screening For Malignant Neoplasms Colon 02/14/2011 ROSELINE LUIS PHD 535.50 Gastritis Unspec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 723.1 CERVICALGIA 09/29/2011 GABBIE MAYORGA APRN 723.1 CERVICALGIA 09/29/2011 TOBY JANE, ROSELINE Thakur 723.1 CERVICALGIA 09/29/2011 TOBY JANE, ROSELINE Thakur 723.1 CERVICALGIA 09/29/2011 YONATHAN RIOS MD 723.1 CERVICALGIA 09/29/2011 TOBY JANE, ROSELINE Thakur 723.1 CERVICALGIA 09/29/2011 GABBIE MAYORGA APRN 723.1 CERVICALGIA 09/29/2011 SCHULZ DO, TREVOR K 723.1 CERVICALGIA 09/29/2011 WU LOZADA, NOEMI S 723.1 CERVICALGIA 09/29/2011 TOBY JANE, ROSELINE Thakur 723.1 CERVICALGIA 09/29/2011 TOBY JANE, ROSELINE Thakur 723.1 CERVICALGIA 09/29/2011 TIERRA CHAIR, GABBIE GRAF 723.1 CERVICALGIA 09/29/2011 TOBY PHD, ROSELINE Thakur 723.1 CERVICALGIA 09/29/2011 BLANCA ROBINS, YONATHAN 723.1 CERVICALGIA 09/29/2011 OWEN CHAIR, LESLY R 723.1 CERVICALGIA 09/29/2011 TOBY PHD, ROSELINE Thakur 723.1 CERVICALGIA 09/29/2011 JENNIFER CHAIR, ARIANE R 723.1 CERVICALGIA 09/29/2011 TOBY PHD, ROSELINE Thakur 723.1 CERVICALGIA 09/29/2011 LILLY CHAIR, SP [place] 723.1 CERVICALGIA 09/29/2011 TREVOR SCHULZ DO 723.1 CERVICALGIA 09/29/2011 TOBY PHD, ROSELINE Thakur 723.1 CERVICALGIA 09/29/2011 BLANCA ROBINS, YONATHAN 723.1 CERVICALGIA 09/29/2011 TOBY JANE, ROSELINE Thakur 723.1 CERVICALGIA 09/29/2011 LOYD ROBINS, NADINE Baum 723.1 CERVICALGIA 09/29/2011 WU LOZADA, NOEMI S 723.1 CERVICALGIA 09/29/2011 TOBY JANE, ROSELINE Thakur 723.1 CERVICALGIA 09/29/2011 WU LOZADA, NOEMI S 723.1 CERVICALGIA 09/29/2011 YONATHAN RIOS MD 723.1 CERVICALGIA 09/29/2011 WU LOZADA, NOEMI S 723.1 CERVICALGIA 09/29/2011 WU LOZADA, NOEMI S 723.1 CERVICALGIA 09/29/2011 TOBY PHD, ROSELINE Thakur 723.1 CERVICALGIA 09/29/2011 ALYSE LIMA M 723.1 CERVICALGIA 09/29/2011 LEXI LEWIS, ALYSE M 723.1 CERVICALGIA 09/29/2011 WU LOZADA, NOEMI S 723.1 CERVICALGIA 09/29/2011 WU LOZADA, NOEMI S 723.1 CERVICALGIA 09/29/2011 TOBY JANE, ROSELINE Thakur 723.1 CERVICALGIA 09/29/2011 WU LOZADA, NOEMI S 723.1 CERVICALGIA 01/10/2012 ROSELINE LUIS PHD V58.69 LONG-TERM (CURRENT) USE OF OTHER MEDICATIONS 01/10/2012 ROSELINE LUIS PHD V58.69 LONG-TERM (CURRENT) USE OF OTHER MEDICATIONS 01/10/2012 V58.69 LONG-TERM ( CURRENT) USE OF OTHER MEDICATIONS 01/10/2012 NOEMI WASHBURN APRN V58.69 LONG-TERM (CURRENT) USE OF OTHER MEDICATIONS 01/10/2012 NOEMI WASHBURN APRN S V58.69 LONG-TERM (CURRENT) USE OF OTHER MEDICATIONS 01/10/2012 TREVOR SCHULZ DO V58.69 LONG-TERM (CURRENT) USE OF OTHER MEDICATIONS 01/10/2012 V58.69 LONG-TERM ( CURRENT) USE OF OTHER MEDICATIONS 01/10/2012 NOEMI WASHBURN APRN V58.69 LONG-TERM (CURRENT) USE OF OTHER MEDICATIONS 01/10/2012 NOEMI WASHBURN APRN S V58.69 LONG-TERM (CURRENT) USE OF OTHER MEDICATIONS 01/10/2012 ROSELINE LUIS PHD V58.69 LONG-TERM (CURRENT) USE OF OTHER MEDICATIONS 01/10/2012 V58.69 LONG-TERM ( CURRENT) USE OF OTHER MEDICATIONS 01/10/2012 V58.69 LONG-TERM ( CURRENT) USE OF OTHER MEDICATIONS 01/10/2012 V58.69 LONG-TERM ( CURRENT) USE OF OTHER MEDICATIONS 01/10/2012 TREVOR SCHULZ DO V58.69 LONG-TERM (CURRENT) USE OF OTHER MEDICATIONS 01/10/2012 ROSELINE LUIS PHD V58.69 LONG-TERM (CURRENT) USE OF OTHER MEDICATIONS 01/10/2012 TREVOR SCHULZ DO V58.69 LONG-TERM (CURRENT) USE OF OTHER MEDICATIONS 01/10/2012 GABBIE MAYORGA APRN V58.69 LONG-TERM (CURRENT) USE OF OTHER MEDICATIONS 01/10/2012 YONATHAN RIOS MD V58.69 LONG-TERM (CURRENT) USE OF OTHER MEDICATIONS 01/10/2012 YONATHAN RIOS MD V58.69 LONG-TERM (CURRENT) USE OF OTHER MEDICATIONS 01/10/2012 ROSELINE LUIS PHD V58.69 LONG-TERM (CURRENT) USE OF OTHER MEDICATIONS 01/10/2012 ROSELINE LUIS PHD V58.69 LONG-TERM (CURRENT) USE OF OTHER MEDICATIONS 01/10/2012 NOEMI WASHBURN APRN V58.69 LONG-TERM (CURRENT) USE OF OTHER MEDICATIONS 01/10/2012 ROSELINE LUIS PHD V58.69 LONG-TERM (CURRENT) USE OF OTHER MEDICATIONS 01/10/2012 YONATHAN RIOS MD V58.69 LONG-TERM (CURRENT) USE OF OTHER MEDICATIONS 01/10/2012 NOEMI WASHBURN APRN V58.69 LONG-TERM (CURRENT) USE OF OTHER MEDICATIONS 01/10/2012 NOEMI WASHBURN APRN V58.69 LONG-TERM (CURRENT) USE OF OTHER MEDICATIONS 01/10/2012 GABBIE MAYORGA APRN V58.69 LONG-TERM (CURRENT) USE OF OTHER MEDICATIONS 01/10/2012 ROSELINE LUIS PHD V58.69 LONG-TERM (CURRENT) USE OF OTHER MEDICATIONS 01/10/2012 ROSELINE LUIS PHD V58.69 LONG-TERM (CURRENT) USE OF OTHER MEDICATIONS 01/10/2012 YONATHAN RIOS MD V58.69 LONG-TERM (CURRENT) USE OF OTHER MEDICATIONS 01/10/2012 ROSELINE LUIS PHD V58.69 LONG-TERM (CURRENT) USE OF OTHER MEDICATIONS 01/10/2012 GABBIE MAYORGA APRN V58.69 LONG-TERM (CURRENT) USE OF OTHER MEDICATIONS 01/10/2012 TREVOR SCHULZ DO V58.69 LONG-TERM (CURRENT) USE OF OTHER MEDICATIONS 01/10/2012 NOEMI WASHBURN APRN V58.69 LONG-TERM (CURRENT) USE OF OTHER MEDICATIONS 01/10/2012 ROSELINE LUIS PHD V58.69 LONG-TERM (CURRENT) USE OF OTHER MEDICATIONS 01/10/2012 ROSELINE LUIS PHD V58.69 LONG-TERM (CURRENT) USE OF OTHER MEDICATIONS 01/10/2012 GABBIE MAYORGA APRN V58.69 LONG-TERM (CURRENT) USE OF OTHER MEDICATIONS 01/10/2012 ROSELINE LUIS PHD V58.69 LONG-TERM (CURRENT) USE OF OTHER MEDICATIONS 01/10/2012 YONATHAN RIOS MD V58.69 LONG-TERM (CURRENT) USE OF OTHER MEDICATIONS 01/10/2012 LESLY WEAVER APRN V58.69 LONG-TERM (CURRENT) USE OF OTHER MEDICATIONS 01/10/2012 TOBY JANE, ROSELINE Thakur V58.69 LONG-TERM (CURRENT) USE OF OTHER MEDICATIONS 01/10/2012 ARIANE RODRIGUEZ APRN V58.69 LONG-TERM (CURRENT) USE OF OTHER MEDICATIONS 01/10/2012 TOBY JANE, ROSELINE Thakur V58.69 LONG-TERM (CURRENT) USE OF OTHER MEDICATIONS 01/10/2012 SP CARR APRN V58.69 LONG-TERM (CURRENT) USE OF OTHER MEDICATIONS 01/10/2012 TREOVR SCHULZ DO V58.69 LONG-TERM (CURRENT) USE OF OTHER MEDICATIONS 01/10/2012 TOBY JANE, ROSELINE Thakur V58.69 LONG-TERM (CURRENT) USE OF OTHER MEDICATIONS 01/10/2012 YONATHAN RIOS MD V58.69 LONG-TERM (CURRENT) USE OF OTHER MEDICATIONS 01/10/2012 TOBY JANE, ROSELINE Thakur V58.69 LONG-TERM (CURRENT) USE OF OTHER MEDICATIONS 01/10/2012 NADINE HARP MD V58.69 LONG-TERM (CURRENT) USE OF OTHER MEDICATIONS 01/10/2012 NOEMI WASHBURN APRN S V58.69 LONG-TERM (CURRENT) USE OF OTHER MEDICATIONS 01/10/2012 TOBY JANE, ROSELINE Thakur V58.69 LONG-TERM (CURRENT) USE OF OTHER MEDICATIONS 01/10/2012 NOEMI WASHBURN APRN S V58.69 LONG-TERM (CURRENT) USE OF OTHER MEDICATIONS 01/10/2012 YONATHAN RIOS MD V58.69 LONG-TERM (CURRENT) USE OF OTHER MEDICATIONS 01/10/2012 NOEMI WASHBURN APRN S V58.69 LONG-TERM (CURRENT) USE OF OTHER MEDICATIONS 01/10/2012 NOEMI WASHBURN APRN S V58.69 LONG-TERM (CURRENT) USE OF OTHER MEDICATIONS 01/10/2012 TOBY JANE, ROSELINE Thakur V58.69 LONG-TERM (CURRENT) USE OF OTHER MEDICATIONS 01/10/2012 ALYSE LIMA V58.69 LONG-TERM (CURRENT) USE OF OTHER MEDICATIONS 01/10/2012 ALYSE LIMA V58.69 LONG-TERM (CURRENT) USE OF OTHER MEDICATIONS 01/10/2012 NOEMI WASHBURN APRN S V58.69 LONG-TERM (CURRENT) USE OF OTHER MEDICATIONS 01/10/2012 NOEMI WASHBURN APRN V58.69 LONG-TERM (CURRENT) USE OF OTHER MEDICATIONS 01/10/2012 ROSELINE LUIS PHD V58.69 LONG-TERM (CURRENT) USE OF OTHER MEDICATIONS 01/10/2012 NOEMI WASHBURN APRN V58.69 LONG-TERM (CURRENT) USE OF OTHER MEDICATIONS 01/24/2012 ROSELINE LUIS PHD 788.1 DYSURIA 01/24/2012 ROSELINE LUIS PHD 788.1 DYSURIA 01/24/2012 788.1 DYSURIA 01/24/2012 NOEMI WASHBURN APRN S 788.1 DYSURIA 01/24/2012 JOSE WASHBURN APRNA S 788.1 DYSURIA 01/24/2012 TREVOR SCHULZ DO 788.1 DYSURIA 01/24/2012 788.1 DYSURIA 01/24/2012 JOSE WASHBURN APRNA S 788.1 DYSURIA 01/24/2012 JOSE WASHBURN APRNA S 788.1 DYSURIA 01/24/2012 ROSELINE LUIS PHD 788.1 DYSURIA 01/24/2012 788.1 DYSURIA 01/24/2012 788.1 DYSURIA 01/24/2012 788.1 DYSURIA 01/24/2012 TREVOR SCHULZ DO 788.1 DYSURIA 01/24/2012 TOBY JANE, ROSELINE Thakur 788.1 DYSURIA 01/24/2012 TREVOR SCHULZ DO 788.1 DYSURIA 01/24/2012 GABBIE MAYORGA APRN 788.1 DYSURIA 01/24/2012 YONATHAN RIOS MD 788.1 DYSURIA 01/24/2012 YONATHAN RIOS MD 788.1 DYSURIA 01/24/2012 ROSELINE LUIS PHD 788.1 DYSURIA 01/24/2012 ROSELINE LUIS PHD 788.1 DYSURIA 01/24/2012 NOEMI WASHBURN APRN S 788.1 DYSURIA 01/24/2012 ROSELINE LUIS PHD 788.1 DYSURIA 01/24/2012 YONATHAN RIOS MD 788.1 DYSURIA 01/24/2012 NOEMI WASHBURN APRN S 788.1 DYSURIA 01/24/2012 WU LOZADA, NOEMI S 788.1 DYSURIA 01/24/2012 GABBIE MAYORGA APRN 788.1 DYSURIA 01/24/2012 TOBY PHD, ROSELINE Thakur 788.1 DYSURIA 01/24/2012 OTBY JANE, ROSELINE Thakur 788.1 DYSURIA 01/24/2012 YONATHAN RIOS MD 788.1 DYSURIA 01/24/2012 TOBY JANE, ROSELINE Thakur 788.1 DYSURIA 01/24/2012 GABBIE MAYORGA APRN 788.1 DYSURIA 01/24/2012 SCHULZ TREVOR STROUD 788.1 DYSURIA 01/24/2012 NOEMI WASHBURN APRN S 788.1 DYSURIA 01/24/2012 TOBY PHD, ROSELINE Thakur 788.1 DYSURIA 01/24/2012 TOBY JANE, ROSELINE Thakur 788.1 DYSURIA 01/24/2012 GABBIE MAYORGA APRN 788.1 DYSURIA 01/24/2012 TOBY JANE, ROSELINE Thakur 788.1 DYSURIA 01/24/2012 YONATHAN RIOS MD 788.1 DYSURIA 01/24/2012 LESLY WEAVER APRN R 788.1 DYSURIA 01/24/2012 TOBY JANE, ROSELINE Thakur 788.1 DYSURIA 01/24/2012 ARIANE RODRIGUEZ APRN R 788.1 DYSURIA 01/24/2012 TOBY JANE, ROSELINE Thakur 788.1 DYSURIA 01/24/2012 SP CARR APRN 788.1 DYSURIA 01/24/2012 TREVOR SCHULZ DO K 788.1 DYSURIA 01/24/2012 TOBY PHD, ROSELINE Thakur 788.1 DYSURIA 01/24/2012 YONATHAN RIOS MD 788.1 DYSURIA 01/24/2012 TOBY JANE, ROSELINE Thakur 788.1 DYSURIA 01/24/2012 NADINE HARP MD 788.1 DYSURIA 01/24/2012 NOEMI WASHBURN APRN S 788.1 DYSURIA 01/24/2012 TOBY JANE, ROSELINE Thakur 788.1 DYSURIA 01/24/2012 NOEMI WASHBURN APRN S 788.1 DYSURIA 01/24/2012 BLANCA ROBINS, YONATHAN 788.1 DYSURIA 01/24/2012 WU LOZADA, NOEMI S 788.1 DYSURIA 01/24/2012 WU LOZADA, NOEMI S 788.1 DYSURIA 01/24/2012 TOBY JANE, ROSELINE Thakur 788.1 DYSURIA 01/24/2012 LEXI FRENCH TEACHER, ALYSE M 788.1 DYSURIA 01/24/2012 LEXI FRENCH TEACHER, ALYSE M 788.1 DYSURIA 01/24/2012 WU LOZADA, NOEMI S 788.1 DYSURIA 01/24/2012 WU LOZADA, NOEMI S 788.1 DYSURIA 01/24/2012 TOBY JANE, ROSELINE Thakur 788.1 DYSURIA 01/24/2012 WU LOZADA, NOEMI S 788.1 DYSURIA 02/23/2012 ROSELINE LUIS PHD 296.89 MO BIPOLAR II 02/23/2012 ROSELINE LUIS PHD 296.89 MO BIPOLAR II 02/23/2012 296.89 MO BIPOLAR II 02/23/2012 WU LOZADA NOEMI S 296.89 MO BIPOLAR II 02/23/2012 WU LOZADA NOEMI S 296.89 MO BIPOLAR II 02/23/2012 TREVOR SCHULZ DO K 296.89 MO BIPOLAR II 02/23/2012 296.89 MO BIPOLAR II 02/23/2012 WU LOZADA NOEMI S 296.89 MO BIPOLAR II 02/23/2012 WU LOZADA NOEMI S 296.89 MO BIPOLAR II 02/23/2012 ROSELINE LUIS PHD 296.89 MO BIPOLAR II 02/23/2012 296.89 MO BIPOLAR II 02/23/2012 296.89 MO BIPOLAR II 02/23/2012 296.89 MO BIPOLAR II 02/23/2012 TREVOR SCHULZ DO K 296.89 MO BIPOLAR II 02/23/2012 ROSELINE LUIS PHD 296.89 MO BIPOLAR II 02/23/2012 TREVOR SCHULZ DO K 296.89 MO BIPOLAR II 02/23/2012 GABBIE MAYORGA APRN 296.89 MO BIPOLAR II 02/23/2012 YONATHAN RIOS MD 296.89 MO BIPOLAR II 02/23/2012 YONATHAN RIOS MD 296.89 MO BIPOLAR II 02/23/2012 TOBY PHD, ROSELINE Thakur 296.89 MO BIPOLAR II 02/23/2012 TOBY JANE, ROSELINE Thakur 296.89 MO BIPOLAR II 02/23/2012 NOEMI WASHBURN APRN S 296.89 MO BIPOLAR II 02/23/2012 TOBY JANE, ROSELINE Thakur 296.89 MO BIPOLAR II 02/23/2012 YONATHAN RIOS MD 296.89 MO BIPOLAR II 02/23/2012 NOEMI WASHBURN APRN S 296.89 MO BIPOLAR II 02/23/2012 JOSE WASHBURN APRNA S 296.89 MO BIPOLAR II 02/23/2012 TIERRA LOZADA, GABBIE HOMAR 296.89 MO BIPOLAR II 02/23/2012 TOBY JANE, ROSELINE Thakur 296.89 MO BIPOLAR II 02/23/2012 TOBY JANE, ROSELINE Thakur 296.89 MO BIPOLAR II 02/23/2012 YONATHAN RIOS MD 296.89 MO BIPOLAR II 02/23/2012 TOBY JANE, ROSELINE Thakur 296.89 MO BIPOLAR II 02/23/2012 GABBIE MAYORGA APRN 296.89 MO BIPOLAR II 02/23/2012 TREVOR SCHULZ DO K 296.89 MO BIPOLAR II 02/23/2012 NOEMI WASHBURN APRN S 296.89 MO BIPOLAR II 02/23/2012 TOBY JANE, ROSELINE Thakur 296.89 MO BIPOLAR II 02/23/2012 TOBY JANE, ROSELINE Thakur 296.89 MO BIPOLAR II 02/23/2012 TIERRA LOZADA GABBIE HOMAR 296.89 MO BIPOLAR II 02/23/2012 TOBY JANE, ROSELINE Thakur 296.89 MO BIPOLAR II 02/23/2012 YONATHAN RIOS MD 296.89 MO BIPOLAR II 02/23/2012 LESLY WEAVER APRN R 296.89 MO BIPOLAR II 02/23/2012 TOBY JANE, ROSELINE Thakur 296.89 MO BIPOLAR II 02/23/2012 ARIANE RODRIGUEZ APRN R 296.89 MO BIPOLAR II 02/23/2012 TOBY JANE, ROSELINE Thakur 296.89 MO BIPOLAR II 02/23/2012 SP CARR APRN 296.89 MO BIPOLAR II 02/23/2012 TREVOR SCHULZ DO K 296.89 MO BIPOLAR II 02/23/2012 TOBY JANE, ROSELINE Thakur 296.89 MO BIPOLAR II 02/23/2012 YONATHAN RIOS MD 296.89 MO BIPOLAR II 02/23/2012 ROSELINE LUIS PHD 296.89 MO BIPOLAR II 02/23/2012 LOYD ROBINS, NADINE N 296.89 MO BIPOLAR II 02/23/2012 WU LOZADA, NOEMI S 296.89 MO BIPOLAR II 02/23/2012 ROSELINE LUIS PHD 296.89 MO BIPOLAR II 02/23/2012 WU LOZADA, NOEMI S 296.89 MO BIPOLAR II 02/23/2012 YONATHAN RIOS MD 296.89 MO BIPOLAR II 02/23/2012 NOEMI WASHBURN APRN S 296.89 MO BIPOLAR II 02/23/2012 DIPTI WASHBURN APRNNDA S 296.89 MO BIPOLAR II 02/23/2012 ROSELINE LUIS PHD 296.89 MO BIPOLAR II 02/23/2012 LEXI FRENCH TEACHER, ALYSE M 296.89 MO BIPOLAR II 02/23/2012 LEXI FRENCH TEACHER, ALYSE M 296.89 MO BIPOLAR II 02/23/2012 WU LOZADA, NOEMI S 296.89 MO BIPOLAR II 02/23/2012 WU LOZADA, NOEMI S 296.89 MO BIPOLAR II 02/23/2012 ROSELINE LUIS PHD 296.89 MO BIPOLAR II 02/23/2012 JOSE WASHBURN APRNA S 296.89 MO BIPOLAR II 03/22/2012 ROSELINE LUIS PHD 293.82 PSYCHOTIC DISORDER WITH HALLUCINATIONS IN CONDITIONS CLASSIFIED ELSEWHERE 03/22/2012 ROSELINE LUIS PHD 784.0 HEADACHE 03/22/2012 ROSELINE LUIS PHD 293.82 PSYCHOTIC DISORDER WITH HALLUCINATIONS IN CONDITIONS CLASSIFIED ELSEWHERE 03/22/2012 ROSELINE LUIS PHD 784.0 HEADACHE 03/22/2012 293.82 PSYCHOTIC DISORDER WITH HALLUCINATIONS IN CONDITIONS CLASSIFIED ELSEWHERE 03/22/2012 784.0 HEADACHE 03/22/2012 JOSE WASHBURN APRNA S 293.82 PSYCHOTIC DISORDER WITH HALLUCINATIONS IN CONDITIONS CLASSIFIED ELSEWHERE 03/22/2012 DIPTI WASHBURN APRNNDA S 784.0 HEADACHE 03/22/2012 DIPTI WASHBURN APRNNDA S 293.82 PSYCHOTIC DISORDER WITH HALLUCINATIONS IN CONDITIONS CLASSIFIED ELSEWHERE 03/22/2012 DIPTI WASHBURN APRNNDA S 784.0 HEADACHE 03/22/2012 SCHULZ DO, TREVOR K 293.82 PSYCHOTIC DISORDER WITH HALLUCINATIONS IN CONDITIONS CLASSIFIED ELSEWHERE 03/22/2012 SCHULZ TREVOR STROUD K 784.0 HEADACHE 03/22/2012 293.82 PSYCHOTIC DISORDER WITH HALLUCINATIONS IN CONDITIONS CLASSIFIED ELSEWHERE 03/22/2012 784.0 HEADACHE 03/22/2012 WU LOZADA NOEMI S 293.82 PSYCHOTIC DISORDER WITH HALLUCINATIONS IN CONDITIONS CLASSIFIED ELSEWHERE 03/22/2012 WU LOZADA NOEMI S 784.0 HEADACHE 03/22/2012 DIPTI WASHBURN APRNNDA S 293.82 PSYCHOTIC DISORDER WITH HALLUCINATIONS IN CONDITIONS CLASSIFIED ELSEWHERE 03/22/2012 WU LOZADA NOEMI S 784.0 HEADACHE 03/22/2012 ROSELINE LUIS PHD 293.82 PSYCHOTIC DISORDER WITH HALLUCINATIONS IN CONDITIONS CLASSIFIED ELSEWHERE 03/22/2012 ROSELINE LUIS PHD 784.0 HEADACHE 03/22/2012 293.82 PSYCHOTIC DISORDER WITH HALLUCINATIONS IN CONDITIONS CLASSIFIED ELSEWHERE 03/22/2012 784.0 HEADACHE 03/22/2012 293.82 PSYCHOTIC DISORDER WITH HALLUCINATIONS IN CONDITIONS CLASSIFIED ELSEWHERE 03/22/2012 784.0 HEADACHE 03/22/2012 293.82 PSYCHOTIC DISORDER WITH HALLUCINATIONS IN CONDITIONS CLASSIFIED ELSEWHERE 03/22/2012 784.0 HEADACHE 03/22/2012 TREVOR SCHULZ DO K 293.82 PSYCHOTIC DISORDER WITH HALLUCINATIONS IN CONDITIONS CLASSIFIED ELSEWHERE 03/22/2012 TREVOR SCHULZ DO K 784.0 HEADACHE 03/22/2012 ROSELINE LUIS PHD 293.82 PSYCHOTIC DISORDER WITH HALLUCINATIONS IN CONDITIONS CLASSIFIED ELSEWHERE 03/22/2012 ROSELINE LUIS PHD 784.0 HEADACHE 03/22/2012 TREVOR SCHULZ DO K 293.82 PSYCHOTIC DISORDER WITH HALLUCINATIONS IN CONDITIONS CLASSIFIED ELSEWHERE 03/22/2012 TREVOR SCHULZ DO K 784.0 HEADACHE 03/22/2012 GABBIE MAYORGA APRN 293.82 PSYCHOTIC DISORDER WITH HALLUCINATIONS IN CONDITIONS CLASSIFIED ELSEWHERE 03/22/2012 GABBIE MAYORGA APRN 784.0 HEADACHE 03/22/2012 YONATHAN RIOS MD 293.82 PSYCHOTIC DISORDER WITH HALLUCINATIONS IN CONDITIONS CLASSIFIED ELSEWHERE 03/22/2012 YONATHAN RIOS MD 784.0 HEADACHE 03/22/2012 YONATHAN RIOS MD 293.82 PSYCHOTIC DISORDER WITH HALLUCINATIONS IN CONDITIONS CLASSIFIED ELSEWHERE 03/22/2012 YONATHAN RIOS MD 784.0 HEADACHE 03/22/2012 ROSELINE LUIS PHD 293.82 PSYCHOTIC DISORDER WITH HALLUCINATIONS IN CONDITIONS CLASSIFIED ELSEWHERE 03/22/2012 ROSELINE LUIS PHD 784.0 HEADACHE 03/22/2012 ROSELINE LUIS PHD 293.82 PSYCHOTIC DISORDER WITH HALLUCINATIONS IN CONDITIONS CLASSIFIED ELSEWHERE 03/22/2012 ROSELINE LUIS PHD 784.0 HEADACHE 03/22/2012 JOSE WASHBURN APRNA S 293.82 PSYCHOTIC DISORDER WITH HALLUCINATIONS IN CONDITIONS CLASSIFIED ELSEWHERE 03/22/2012 DIPTI WASHBURN APRNNDA S 784.0 HEADACHE 03/22/2012 ROSELINE LUIS PHD 293.82 PSYCHOTIC DISORDER WITH HALLUCINATIONS IN CONDITIONS CLASSIFIED ELSEWHERE 03/22/2012 ROSELINE LUIS PHD 784.0 HEADACHE 03/22/2012 YONATHAN RIOS MD 293.82 PSYCHOTIC DISORDER WITH HALLUCINATIONS IN CONDITIONS CLASSIFIED ELSEWHERE 03/22/2012 YONATHAN RIOS MD 784.0 HEADACHE 03/22/2012 DIPTI WASHBURN APRNNDA S 293.82 PSYCHOTIC DISORDER WITH HALLUCINATIONS IN CONDITIONS CLASSIFIED ELSEWHERE 03/22/2012 WU LOZADA NOEMI S 784.0 HEADACHE 03/22/2012 WU LOZADA NOEMI S 293.82 PSYCHOTIC DISORDER WITH HALLUCINATIONS IN CONDITIONS CLASSIFIED ELSEWHERE 03/22/2012 WU LOZADA NOEMI S 784.0 HEADACHE 03/22/2012 GABBIE MAYORGA APRN 293.82 PSYCHOTIC DISORDER WITH HALLUCINATIONS IN CONDITIONS CLASSIFIED ELSEWHERE 03/22/2012 GABBIE MAYORGA APRN 784.0 HEADACHE 03/22/2012 ROSELINE LUIS PHD 293.82 PSYCHOTIC DISORDER WITH HALLUCINATIONS IN CONDITIONS CLASSIFIED ELSEWHERE 03/22/2012 ROSELINE LUIS PHD 784.0 HEADACHE 03/22/2012 ROSELINE LUIS PHD 293.82 PSYCHOTIC DISORDER WITH HALLUCINATIONS IN CONDITIONS CLASSIFIED ELSEWHERE 03/22/2012 ROSELINE LUIS PHD 784.0 HEADACHE 03/22/2012 YONATHAN RIOS MD 293.82 PSYCHOTIC DISORDER WITH HALLUCINATIONS IN CONDITIONS CLASSIFIED ELSEWHERE 03/22/2012 YONATHAN RIOS MD 784.0 HEADACHE 03/22/2012 ROSELINE LUIS PHD 293.82 PSYCHOTIC DISORDER WITH HALLUCINATIONS IN CONDITIONS CLASSIFIED ELSEWHERE 03/22/2012 ROSELINE LUIS PHD 784.0 HEADACHE 03/22/2012 GABBIE MAYORGA APRN 293.82 PSYCHOTIC DISORDER WITH HALLUCINATIONS IN CONDITIONS CLASSIFIED ELSEWHERE 03/22/2012 TIERRA LOZADA GABBIE GRAF 784.0 HEADACHE 03/22/2012 SCHULZ TREVOR STROUD K 293.82 PSYCHOTIC DISORDER WITH HALLUCINATIONS IN CONDITIONS CLASSIFIED ELSEWHERE 03/22/2012 SCHULZ TREVOR STROUD K 784.0 HEADACHE 03/22/2012 NOEMI WASHBURN APRN 293.82 PSYCHOTIC DISORDER WITH HALLUCINATIONS IN CONDITIONS CLASSIFIED ELSEWHERE 03/22/2012 NOEMI WASHBURN APRN S 784.0 HEADACHE 03/22/2012 ROSELINE LUIS PHD 293.82 PSYCHOTIC DISORDER WITH HALLUCINATIONS IN CONDITIONS CLASSIFIED ELSEWHERE 03/22/2012 ROSELINE LUIS PHD 784.0 HEADACHE 03/22/2012 ROSELINE LUIS PHD 293.82 PSYCHOTIC DISORDER WITH HALLUCINATIONS IN CONDITIONS CLASSIFIED ELSEWHERE 03/22/2012 ROSELINE LUIS PHD 784.0 HEADACHE 03/22/2012 GABBIE MAYORGA APRN 293.82 PSYCHOTIC DISORDER WITH HALLUCINATIONS IN CONDITIONS CLASSIFIED ELSEWHERE 03/22/2012 GABBIE MAYORGA APRN 784.0 HEADACHE 03/22/2012 ROSELINE LUIS PHD 293.82 PSYCHOTIC DISORDER WITH HALLUCINATIONS IN CONDITIONS CLASSIFIED ELSEWHERE 03/22/2012 ROSELINE LUIS PHD 784.0 HEADACHE 03/22/2012 YONATHAN RIOS MD 293.82 PSYCHOTIC DISORDER WITH HALLUCINATIONS IN CONDITIONS CLASSIFIED ELSEWHERE 03/22/2012 YONATHAN RIOS MD 784.0 HEADACHE 03/22/2012 LESLY WEAVER APRN 293.82 PSYCHOTIC DISORDER WITH HALLUCINATIONS IN CONDITIONS CLASSIFIED ELSEWHERE 03/22/2012 LESLY WEAVER APRN R 784.0 HEADACHE 03/22/2012 ROSELINE LUIS PHD 293.82 PSYCHOTIC DISORDER WITH HALLUCINATIONS IN CONDITIONS CLASSIFIED ELSEWHERE 03/22/2012 ROSELINE LUIS PHD 784.0 HEADACHE 03/22/2012 ARIANE RODRIGUEZ APRN R 293.82 PSYCHOTIC DISORDER WITH HALLUCINATIONS IN CONDITIONS CLASSIFIED ELSEWHERE 03/22/2012 ARIANE RODRIGUEZ APRN R 784.0 HEADACHE 03/22/2012 ROSELINE LUIS PHD 293.82 PSYCHOTIC DISORDER WITH HALLUCINATIONS IN CONDITIONS CLASSIFIED ELSEWHERE 03/22/2012 ROSELINE LUIS PHD 784.0 HEADACHE 03/22/2012 SP CARR APRN 293.82 PSYCHOTIC DISORDER WITH HALLUCINATIONS IN CONDITIONS CLASSIFIED ELSEWHERE 03/22/2012 SP CARR APRN 784.0 HEADACHE 03/22/2012 LURDES SCHULZ DOJulia Lam 293.82 PSYCHOTIC DISORDER WITH HALLUCINATIONS IN CONDITIONS CLASSIFIED ELSEWHERE 03/22/2012 TREVOR SCHULZ DO K 784.0 HEADACHE 03/22/2012 ROSELINE LUIS PHD 293.82 PSYCHOTIC DISORDER WITH HALLUCINATIONS IN CONDITIONS CLASSIFIED ELSEWHERE 03/22/2012 ROSELINE LUIS PHD 784.0 HEADACHE 03/22/2012 YONATHAN RIOS MD 293.82 PSYCHOTIC DISORDER WITH HALLUCINATIONS IN CONDITIONS CLASSIFIED ELSEWHERE 03/22/2012 YONATHAN RIOS MD 784.0 HEADACHE 03/22/2012 ROSELINE LUIS PHD 293.82 PSYCHOTIC DISORDER WITH HALLUCINATIONS IN CONDITIONS CLASSIFIED ELSEWHERE 03/22/2012 ROSELINE LUIS PHD 784.0 HEADACHE 03/22/2012 NADINE HARP MD 293.82 PSYCHOTIC DISORDER WITH HALLUCINATIONS IN CONDITIONS CLASSIFIED ELSEWHERE 03/22/2012 NADINE HARP MD 784.0 HEADACHE 03/22/2012 NOEMI WASHBURN APRN S 293.82 PSYCHOTIC DISORDER WITH HALLUCINATIONS IN CONDITIONS CLASSIFIED ELSEWHERE 03/22/2012 JOSE WASHBURN APRNA S 784.0 HEADACHE 03/22/2012 ROSELINE LUIS PHD 293.82 PSYCHOTIC DISORDER WITH HALLUCINATIONS IN CONDITIONS CLASSIFIED ELSEWHERE 03/22/2012 ROSELINE LUIS PHD 784.0 HEADACHE 03/22/2012 NOEMI WASHBURN APRN S 293.82 PSYCHOTIC DISORDER WITH HALLUCINATIONS IN CONDITIONS CLASSIFIED ELSEWHERE 03/22/2012 DIPTI WASHBURN APRNNDA S 784.0 HEADACHE 03/22/2012 YONATHAN RIOS MD 293.82 PSYCHOTIC DISORDER WITH HALLUCINATIONS IN CONDITIONS CLASSIFIED ELSEWHERE 03/22/2012 YONATHAN RIOS MD 784.0 HEADACHE 03/22/2012 DIPTI WASHBURN APRNNDA S 293.82 PSYCHOTIC DISORDER WITH HALLUCINATIONS IN CONDITIONS CLASSIFIED ELSEWHERE 03/22/2012 DIPTI WASHBURN APRNNDA S 784.0 HEADACHE 03/22/2012 JOSE WASHBURN APRNA S 293.82 PSYCHOTIC DISORDER WITH HALLUCINATIONS IN CONDITIONS CLASSIFIED ELSEWHERE 03/22/2012 WU LOZADA NOEMI S 784.0 HEADACHE 03/22/2012 ROSELINE LUIS PHD 293.82 PSYCHOTIC DISORDER WITH HALLUCINATIONS IN CONDITIONS CLASSIFIED ELSEWHERE 03/22/2012 ROSELINE LUIS PHD 784.0 HEADACHE 03/22/2012 ALYSE LIMA 293.82 PSYCHOTIC DISORDER WITH HALLUCINATIONS IN CONDITIONS CLASSIFIED ELSEWHERE 03/22/2012 ALYSE LIMA M 784.0 HEADACHE 03/22/2012 ALYSE LIMA 293.82 PSYCHOTIC DISORDER WITH HALLUCINATIONS IN CONDITIONS CLASSIFIED ELSEWHERE 03/22/2012 ALYSE LIMA M 784.0 HEADACHE 03/22/2012 NOEMI WASHBURN APRN S 293.82 PSYCHOTIC DISORDER WITH HALLUCINATIONS IN CONDITIONS CLASSIFIED ELSEWHERE 03/22/2012 NOEMI WASHBURN APRN S 784.0 HEADACHE 03/22/2012 NOEMI WASHBURN APRN S 293.82 PSYCHOTIC DISORDER WITH HALLUCINATIONS IN CONDITIONS CLASSIFIED ELSEWHERE 03/22/2012 NOEMI WASHBURN APRN S 784.0 HEADACHE 03/22/2012 ROSELINE LUIS PHD 293.82 PSYCHOTIC DISORDER WITH HALLUCINATIONS IN CONDITIONS CLASSIFIED ELSEWHERE 03/22/2012 ROSELINE LUIS PHD 784.0 HEADACHE 03/22/2012 NOEMI WASHBURN APRN S 293.82 PSYCHOTIC DISORDER WITH HALLUCINATIONS IN CONDITIONS CLASSIFIED ELSEWHERE 03/22/2012 NOEMI WASHBURN APRN S 784.0 HEADACHE 03/23/2012 Ot 250.02 DIAB AILEEN WO COMPL, TYPE II OR UNSPEC TY 03/23/2012 Ot 368.9 VISUAL DISTURBANCE NOS 03/23/2012 Ot 784.0 HEADACHE 03/23/2012 Ot V58.67 LONG-TERM ( CURRENT) USE OF INSULIN 03/23/2012 Ot V58.69 OTH MED,LT, CURRENT USE 03/27/2012 ROSELINE LUIS PHD 368.16 PSYCHOPHYSICAL VISUAL DISTURBANCES 03/27/2012 ROSELINE LUIS PHD 368.9 UNSPECIFIED VISUAL DISTURBANCE 03/27/2012 ROSELINE LUIS PHD 784.0 HEADACHE 03/27/2012 ROSELINE LUIS PHD 368.16 PSYCHOPHYSICAL VISUAL DISTURBANCES 03/27/2012 ROSELINE LUIS PHD 368.9 UNSPECIFIED VISUAL DISTURBANCE 03/27/2012 ROSELINE LUIS PHD 784.0 HEADACHE 03/27/2012 368.16 PSYCHOPHYSICAL VISUAL DISTURBANCES 03/27/2012 368.9 UNSPECIFIED VISUAL DISTURBANCE 03/27/2012 784.0 HEADACHE 03/27/2012 NOEMI WASHBURN APRN 368.16 PSYCHOPHYSICAL VISUAL DISTURBANCES 03/27/2012 WU CHAIR, NOEMI S 368.9 UNSPECIFIED VISUAL DISTURBANCE 03/27/2012 JOSE WASHBURN APRNA S 784.0 HEADACHE 03/27/2012 NOEMI WASHBURN APRN S 368.16 PSYCHOPHYSICAL VISUAL DISTURBANCES 03/27/2012 JOSE WASHBURN APRNA S 368.9 UNSPECIFIED VISUAL DISTURBANCE 03/27/2012 JOSE WASHBURN APRNA S 784.0 HEADACHE 03/27/2012 SCHULZ DO, TREVOR K 368.16 PSYCHOPHYSICAL VISUAL DISTURBANCES 03/27/2012 SCHULZ DO, TREVOR K 368.9 UNSPECIFIED VISUAL DISTURBANCE 03/27/2012 SCHULZ DO, TREVOR K 784.0 HEADACHE 03/27/2012 368.16 PSYCHOPHYSICAL VISUAL DISTURBANCES 03/27/2012 368.9 UNSPECIFIED VISUAL DISTURBANCE 03/27/2012 784.0 HEADACHE 03/27/2012 NOEMI WASHBURN APRN S 368.16 PSYCHOPHYSICAL VISUAL DISTURBANCES 03/27/2012 NOEMI WASHBURN APRN S 368.9 UNSPECIFIED VISUAL DISTURBANCE 03/27/2012 NOEMI WASHBURN APRN S 784.0 HEADACHE 03/27/2012 NOEMI WASHBURN APRN S 368.16 PSYCHOPHYSICAL VISUAL DISTURBANCES 03/27/2012 NOEMI WASHBURN APRN S 368.9 UNSPECIFIED VISUAL DISTURBANCE 03/27/2012 NOEMI WASHBURN APRN S 784.0 HEADACHE 03/27/2012 ROSELINE LUIS PHD 368.16 PSYCHOPHYSICAL VISUAL DISTURBANCES 03/27/2012 ROSELINE LUIS PHD 368.9 UNSPECIFIED VISUAL DISTURBANCE 03/27/2012 ROSELINE LUIS PHD 784.0 HEADACHE 03/27/2012 368.16 PSYCHOPHYSICAL VISUAL DISTURBANCES 03/27/2012 368.9 UNSPECIFIED VISUAL DISTURBANCE 03/27/2012 784.0 HEADACHE 03/27/2012 368.16 PSYCHOPHYSICAL VISUAL DISTURBANCES 03/27/2012 368.9 UNSPECIFIED VISUAL DISTURBANCE 03/27/2012 784.0 HEADACHE 03/27/2012 368.16 PSYCHOPHYSICAL VISUAL DISTURBANCES 03/27/2012 368.9 UNSPECIFIED VISUAL DISTURBANCE 03/27/2012 784.0 HEADACHE 03/27/2012 SCHULZ DO, TREVOR K 368.16 PSYCHOPHYSICAL VISUAL DISTURBANCES 03/27/2012 SCHULZ DO, TREVOR K 368.9 UNSPECIFIED VISUAL DISTURBANCE 03/27/2012 SCHULZ DO, TREVOR K 784.0 HEADACHE 03/27/2012 ROSELINE LUIS PHD 368.16 PSYCHOPHYSICAL VISUAL DISTURBANCES 03/27/2012 ROSELINE LUIS PHD 368.9 UNSPECIFIED VISUAL DISTURBANCE 03/27/2012 ROSELINE LUIS PHD 784.0 HEADACHE 03/27/2012 SCHULZ DO, TREVOR K 368.16 PSYCHOPHYSICAL VISUAL DISTURBANCES 03/27/2012 SCHULZ DO, TREVOR K 368.9 UNSPECIFIED VISUAL DISTURBANCE 03/27/2012 SCHULZ DO, TREVOR K 784.0 HEADACHE 03/27/2012 TIERRA LOZADA GABBIE HOMAR 368.16 PSYCHOPHYSICAL VISUAL DISTURBANCES 03/27/2012 TIERRA LOZADA GABBIE HOMAR 368.9 UNSPECIFIED VISUAL DISTURBANCE 03/27/2012 TIERRA LOZADA GABBIE HOMAR 784.0 HEADACHE 03/27/2012 YONATHAN RIOS MD 368.16 PSYCHOPHYSICAL VISUAL DISTURBANCES 03/27/2012 YONATHAN RIOS MD 368.9 UNSPECIFIED VISUAL DISTURBANCE 03/27/2012 YONATHAN RIOS MD 784.0 HEADACHE 03/27/2012 YONATHAN RIOS MD 368.16 PSYCHOPHYSICAL VISUAL DISTURBANCES 03/27/2012 YONATHAN RIOS MD 368.9 UNSPECIFIED VISUAL DISTURBANCE 03/27/2012 YONATHAN RIOS MD 784.0 HEADACHE 03/27/2012 ROSELINE LUIS PHD 368.16 PSYCHOPHYSICAL VISUAL DISTURBANCES 03/27/2012 ROSELINE LUIS PHD 368.9 UNSPECIFIED VISUAL DISTURBANCE 03/27/2012 ROSELINE LUIS PHD 784.0 HEADACHE 03/27/2012 ROSELINE LUIS PHD 368.16 PSYCHOPHYSICAL VISUAL DISTURBANCES 03/27/2012 ROSELINE LUIS PHD 368.9 UNSPECIFIED VISUAL DISTURBANCE 03/27/2012 ROSELINE LUIS PHD 784.0 HEADACHE 03/27/2012 NOEMI WASHBURN APRN S 368.16 PSYCHOPHYSICAL VISUAL DISTURBANCES 03/27/2012 NOEMI WASHBURN APRN S 368.9 UNSPECIFIED VISUAL DISTURBANCE 03/27/2012 NOEMI WASHBURN APRN S 784.0 HEADACHE 03/27/2012 ROSELINE LUIS PHD 368.16 PSYCHOPHYSICAL VISUAL DISTURBANCES 03/27/2012 ROSELINE LUIS PHD 368.9 UNSPECIFIED VISUAL DISTURBANCE 03/27/2012 ROSELINE LUIS PHD 784.0 HEADACHE 03/27/2012 YONATHAN RIOS MD 368.16 PSYCHOPHYSICAL VISUAL DISTURBANCES 03/27/2012 YONATHAN RIOS MD 368.9 UNSPECIFIED VISUAL DISTURBANCE 03/27/2012 YONATHAN RIOS MD 784.0 HEADACHE 03/27/2012 JOSE WASHBURN APRNA S 368.16 PSYCHOPHYSICAL VISUAL DISTURBANCES 03/27/2012 WU LOZADA NOEMI S 368.9 UNSPECIFIED VISUAL DISTURBANCE 03/27/2012 WU LOZADA NOEMI S 784.0 HEADACHE 03/27/2012 WU LOZADA, NOEMI S 368.16 PSYCHOPHYSICAL VISUAL DISTURBANCES 03/27/2012 JOSE WASHBURN APRNA S 368.9 UNSPECIFIED VISUAL DISTURBANCE 03/27/2012 DIPTI WASHBURN APRNNDA S 784.0 HEADACHE 03/27/2012 TIERRA LZOADA GABBIE HOMAR 368.16 PSYCHOPHYSICAL VISUAL DISTURBANCES 03/27/2012 TIERRA LOZADA GABBIE HOMAR 368.9 UNSPECIFIED VISUAL DISTURBANCE 03/27/2012 TIERRA LOZADA GABBIE HOMAR 784.0 HEADACHE 03/27/2012 ROSELINE LUIS PHD 368.16 PSYCHOPHYSICAL VISUAL DISTURBANCES 03/27/2012 ROSELINE LUIS PHD 368.9 UNSPECIFIED VISUAL DISTURBANCE 03/27/2012 ROSELINE LUIS PHD 784.0 HEADACHE 03/27/2012 ROSELINE LUIS PHD 368.16 PSYCHOPHYSICAL VISUAL DISTURBANCES 03/27/2012 ROSELINE LUIS PHD 368.9 UNSPECIFIED VISUAL DISTURBANCE 03/27/2012 ROSELINE LUIS PHD 784.0 HEADACHE 03/27/2012 YONATHAN RIOS MD 368.16 PSYCHOPHYSICAL VISUAL DISTURBANCES 03/27/2012 YONATHAN RIOS MD 368.9 UNSPECIFIED VISUAL DISTURBANCE 03/27/2012 YONATHAN RIOS MD 784.0 HEADACHE 03/27/2012 ROSELINE LUIS PHD 368.16 PSYCHOPHYSICAL VISUAL DISTURBANCES 03/27/2012 ROSELINE LUIS PHD 368.9 UNSPECIFIED VISUAL DISTURBANCE 03/27/2012 ROSELINE LUIS PHD 784.0 HEADACHE 03/27/2012 TIERRA LOZAAD GABBIE HOMAR 368.16 PSYCHOPHYSICAL VISUAL DISTURBANCES 03/27/2012 TIERRA LOZADA GABBIE HOMAR 368.9 UNSPECIFIED VISUAL DISTURBANCE 03/27/2012 GABBIE MAYORGA APRN 784.0 HEADACHE 03/27/2012 SCHULZ DO, TREVOR K 368.16 PSYCHOPHYSICAL VISUAL DISTURBANCES 03/27/2012 SCHULZ DO, TREVOR K 368.9 UNSPECIFIED VISUAL DISTURBANCE 03/27/2012 SCHULZ DO, TREVOR K 784.0 HEADACHE 03/27/2012 NOEMI WASHBURN APRN S 368.16 PSYCHOPHYSICAL VISUAL DISTURBANCES 03/27/2012 NOEMI WASHBURN APRN S 368.9 UNSPECIFIED VISUAL DISTURBANCE 03/27/2012 WU LOZADA, NOEMI S 784.0 HEADACHE 03/27/2012 ROSELINE LUIS PHD 368.16 PSYCHOPHYSICAL VISUAL DISTURBANCES 03/27/2012 ROSELINE LUIS PHD 368.9 UNSPECIFIED VISUAL DISTURBANCE 03/27/2012 ROSELINE LUIS PHD 784.0 HEADACHE 03/27/2012 ROSELINE LUIS PHD 368.16 PSYCHOPHYSICAL VISUAL DISTURBANCES 03/27/2012 ROSELINE LUIS PHD 368.9 UNSPECIFIED VISUAL DISTURBANCE 03/27/2012 ROSELINE LUIS PHD 784.0 HEADACHE 03/27/2012 MAYORGA APRNGABBIE 368.16 PSYCHOPHYSICAL VISUAL DISTURBANCES 03/27/2012 MAYORGA APRNGABBIE 368.9 UNSPECIFIED VISUAL DISTURBANCE 03/27/2012 TIERRA LOZADAGABBIE 784.0 HEADACHE 03/27/2012 ROSELINE LUIS PHD 368.16 PSYCHOPHYSICAL VISUAL DISTURBANCES 03/27/2012 ROSELINE LUIS PHD 368.9 UNSPECIFIED VISUAL DISTURBANCE 03/27/2012 ROSELINE LUIS PHD 784.0 HEADACHE 03/27/2012 YONATHAN RIOS MD 368.16 PSYCHOPHYSICAL VISUAL DISTURBANCES 03/27/2012 YONATHAN RIOS MD 368.9 UNSPECIFIED VISUAL DISTURBANCE 03/27/2012 YONATHAN RIOS MD 784.0 HEADACHE 03/27/2012 LESLY WEAVER APRN R 368.16 PSYCHOPHYSICAL VISUAL DISTURBANCES 03/27/2012 KYLE WEAVER APRNIA R 368.9 UNSPECIFIED VISUAL DISTURBANCE 03/27/2012 OWEN LOZADA LESLY R 784.0 HEADACHE 03/27/2012 ROSELINE LUIS PHD 368.16 PSYCHOPHYSICAL VISUAL DISTURBANCES 03/27/2012 ROSELINE LUIS PHD 368.9 UNSPECIFIED VISUAL DISTURBANCE 03/27/2012 ROSELINE LUIS PHD 784.0 HEADACHE 03/27/2012 JENNIFER LOZADA, ARIANE R 368.16 PSYCHOPHYSICAL VISUAL DISTURBANCES 03/27/2012 ARIANE RODRIGUEZ APRN R 368.9 UNSPECIFIED VISUAL DISTURBANCE 03/27/2012 JENNIFER LOZADA, ARIANE R 784.0 HEADACHE 03/27/2012 ROSELINE LUIS PHD 368.16 PSYCHOPHYSICAL VISUAL DISTURBANCES 03/27/2012 ROSELINE LUIS PHD 368.9 UNSPECIFIED VISUAL DISTURBANCE 03/27/2012 ROSELINE LUIS PHD 784.0 HEADACHE 03/27/2012 SP CARR APRN T 368.16 PSYCHOPHYSICAL VISUAL DISTURBANCES 03/27/2012 SP CARR APRN 368.9 UNSPECIFIED VISUAL DISTURBANCE 03/27/2012 SP CARR APRN 784.0 HEADACHE 03/27/2012 SCHULZ DO, TREVOR K 368.16 PSYCHOPHYSICAL VISUAL DISTURBANCES 03/27/2012 SCHULZ DO, TREVOR K 368.9 UNSPECIFIED VISUAL DISTURBANCE 03/27/2012 SCHULZ DO, TREVOR K 784.0 HEADACHE 03/27/2012 ROSELINE LUIS PHD 368.16 PSYCHOPHYSICAL VISUAL DISTURBANCES 03/27/2012 ROSELINE LUIS PHD 368.9 UNSPECIFIED VISUAL DISTURBANCE 03/27/2012 ROSELINE LUIS PHD 784.0 HEADACHE 03/27/2012 YONATHAN RIOS MD 368.16 PSYCHOPHYSICAL VISUAL DISTURBANCES 03/27/2012 YONATHAN RIOS MD 368.9 UNSPECIFIED VISUAL DISTURBANCE 03/27/2012 YONATHAN RIOS MD 784.0 HEADACHE 03/27/2012 ROSELINE LUIS PHD 368.16 PSYCHOPHYSICAL VISUAL DISTURBANCES 03/27/2012 ROSELINE LUIS PHD 368.9 UNSPECIFIED VISUAL DISTURBANCE 03/27/2012 ROSELINE LUIS PHD 784.0 HEADACHE 03/27/2012 NADINE HARP MD 368.16 PSYCHOPHYSICAL VISUAL DISTURBANCES 03/27/2012 NADINE HARP MD 368.9 UNSPECIFIED VISUAL DISTURBANCE 03/27/2012 NADINE HARP MD 784.0 HEADACHE 03/27/2012 NOEMI WASHBURN APRN S 368.16 PSYCHOPHYSICAL VISUAL DISTURBANCES 03/27/2012 NOEMI WASHBURN APRN S 368.9 UNSPECIFIED VISUAL DISTURBANCE 03/27/2012 NOEMI WASHBURN APRN S 784.0 HEADACHE 03/27/2012 ROSELINE LUIS PHD 368.16 PSYCHOPHYSICAL VISUAL DISTURBANCES 03/27/2012 ROSELINE LUIS PHD 368.9 UNSPECIFIED VISUAL DISTURBANCE 03/27/2012 ROSELINE LUIS PHD 784.0 HEADACHE 03/27/2012 JOSE WASHBURN APRNA S 368.16 PSYCHOPHYSICAL VISUAL DISTURBANCES 03/27/2012 JOSE WASHBURN APRNA S 368.9 UNSPECIFIED VISUAL DISTURBANCE 03/27/2012 DIPTI WASHBURN APRNNDA S 784.0 HEADACHE 03/27/2012 YONATHAN RIOS MD 368.16 PSYCHOPHYSICAL VISUAL DISTURBANCES 03/27/2012 YONATHAN RIOS MD 368.9 UNSPECIFIED VISUAL DISTURBANCE 03/27/2012 YONATHAN RIOS MD 784.0 HEADACHE 03/27/2012 JOSE WASHBURN APRNA S 368.16 PSYCHOPHYSICAL VISUAL DISTURBANCES 03/27/2012 JOSE WASHBURN APRNA S 368.9 UNSPECIFIED VISUAL DISTURBANCE 03/27/2012 DIPTI WASHBURN APRNNDA S 784.0 HEADACHE 03/27/2012 DIPTI WASHBURN APRNNDA S 368.16 PSYCHOPHYSICAL VISUAL DISTURBANCES 03/27/2012 JOSE WASHBURN APRNA S 368.9 UNSPECIFIED VISUAL DISTURBANCE 03/27/2012 DIPTI WASHBURN APRNNDA S 784.0 HEADACHE 03/27/2012 ROSELINE LUIS PHD 368.16 PSYCHOPHYSICAL VISUAL DISTURBANCES 03/27/2012 ROSELINE LUIS PHD 368.9 UNSPECIFIED VISUAL DISTURBANCE 03/27/2012 ROSELINE LUIS PHD 784.0 HEADACHE 03/27/2012 LEXI FRENCH TEACHER, ALYSE M 368.16 PSYCHOPHYSICAL VISUAL DISTURBANCES 03/27/2012 LEXI FRENCH TEACHER, ALYSE M 368.9 UNSPECIFIED VISUAL DISTURBANCE 03/27/2012 LEXI FRENCH TEACHER, ALYSE M 784.0 HEADACHE 03/27/2012 LEXI FRENCH TEACHER, ALYSE M 368.16 PSYCHOPHYSICAL VISUAL DISTURBANCES 03/27/2012 LEXI FRENCH TEACHER, ALYSE M 368.9 UNSPECIFIED VISUAL DISTURBANCE 03/27/2012 LEXI FRENCH TEACHER, ALYSE M 784.0 HEADACHE 03/27/2012 DIPTI WASHBURN APRNNDA S 368.16 PSYCHOPHYSICAL VISUAL DISTURBANCES 03/27/2012 DIPTI WASHBURN APRNNDA S 368.9 UNSPECIFIED VISUAL DISTURBANCE 03/27/2012 JOSE WASHBURN APRNA S 784.0 HEADACHE 03/27/2012 JOSE WASHBURN APRNA S 368.16 PSYCHOPHYSICAL VISUAL DISTURBANCES 03/27/2012 JOSE WASHBURN APRNA S 368.9 UNSPECIFIED VISUAL DISTURBANCE 03/27/2012 JOSE WASHBURN APRNA S 784.0 HEADACHE 03/27/2012 ROSELINE LUIS PHD 368.16 PSYCHOPHYSICAL VISUAL DISTURBANCES 03/27/2012 ROSELINE LUIS PHD 368.9 UNSPECIFIED VISUAL DISTURBANCE 03/27/2012 ROSELINE LUIS PHD 784.0 HEADACHE 03/27/2012 JOSE WASHBURN APRNA S 368.16 PSYCHOPHYSICAL VISUAL DISTURBANCES 03/27/2012 NOEMI WASHBURN APRN S 368.9 UNSPECIFIED VISUAL DISTURBANCE 03/27/2012 JOSE WASHBURN APRNA S 784.0 HEADACHE 04/06/2012 Ot 276.50 VOLUME DEPLETION, UNSPECIFIED 04/06/2012 Ot 787.01 NAUSEA WITH VOMITING 05/01/2012 ROSELINE LUIS PHD 599.0 URINARY TRACT INFECTION SITE NOT SPECIFIED 05/01/2012 ROSELINE LUIS PHD 787.01 NAUSEA WITH VOMITING 05/01/2012 ROSELINE LUIS PHD 599.0 URINARY TRACT INFECTION SITE NOT SPECIFIED 05/01/2012 ROSELINE LUIS PHD 787.01 NAUSEA WITH VOMITING 05/01/2012 599.0 URINARY TRACT INFECTION SITE NOT SPECIFIED 05/01/2012 787.01 NAUSEA WITH VOMITING 05/01/2012 NOEMI WASHBURN APRN S 599.0 URINARY TRACT INFECTION SITE NOT SPECIFIED 05/01/2012 NOEMI WASHBURN APRN S 787.01 NAUSEA WITH VOMITING 05/01/2012 JOSE WASHBURN APRNA S 599.0 URINARY TRACT INFECTION SITE NOT SPECIFIED 05/01/2012 NOEMI WASHBURN APRN S 787.01 NAUSEA WITH VOMITING 05/01/2012 SCHULZ DOLURDESA K 599.0 URINARY TRACT INFECTION SITE NOT SPECIFIED 05/01/2012 SCHULZ DOLURDESA K 787.01 NAUSEA WITH VOMITING 05/01/2012 599.0 URINARY TRACT INFECTION SITE NOT SPECIFIED 05/01/2012 787.01 NAUSEA WITH VOMITING 05/01/2012 WU CHAIR, NOEMI S 599.0 URINARY TRACT INFECTION SITE NOT SPECIFIED 05/01/2012 JOSE WASHBURN APRNA S 787.01 NAUSEA WITH VOMITING 05/01/2012 JOSE WASHBURN APRNA S 599.0 URINARY TRACT INFECTION SITE NOT SPECIFIED 05/01/2012 JOSE WASHBURN APRNA S 787.01 NAUSEA WITH VOMITING 05/01/2012 ROSELINE LUIS PHD 599.0 URINARY TRACT INFECTION SITE NOT SPECIFIED 05/01/2012 ROSELINE LUIS PHD 787.01 NAUSEA WITH VOMITING 05/01/2012 599.0 URINARY TRACT INFECTION SITE NOT SPECIFIED 05/01/2012 787.01 NAUSEA WITH VOMITING 05/01/2012 599.0 URINARY TRACT INFECTION SITE NOT SPECIFIED 05/01/2012 787.01 NAUSEA WITH VOMITING 05/01/2012 599.0 URINARY TRACT INFECTION SITE NOT SPECIFIED 05/01/2012 787.01 NAUSEA WITH VOMITING 05/01/2012 TREVOR SCHULZ DO 599.0 URINARY TRACT INFECTION SITE NOT SPECIFIED 05/01/2012 TREVOR SCHULZ DO 787.01 NAUSEA WITH VOMITING 05/01/2012 ROSELINE LUIS PHD 599.0 URINARY TRACT INFECTION SITE NOT SPECIFIED 05/01/2012 ROSELINE LUIS PHD 787.01 NAUSEA WITH VOMITING 05/01/2012 TREVOR SCHULZ DO 599.0 URINARY TRACT INFECTION SITE NOT SPECIFIED 05/01/2012 TREVOR SCHULZ DO 787.01 NAUSEA WITH VOMITING 05/01/2012 GABBIE MAYORGA APRN 599.0 URINARY TRACT INFECTION SITE NOT SPECIFIED 05/01/2012 GABBIE MAYORGA APRN 787.01 NAUSEA WITH VOMITING 05/01/2012 YONATHAN RIOS MD 599.0 URINARY TRACT INFECTION SITE NOT SPECIFIED 05/01/2012 YONATHAN RIOS MD 787.01 NAUSEA WITH VOMITING 05/01/2012 YONATHAN RIOS MD 599.0 URINARY TRACT INFECTION SITE NOT SPECIFIED 05/01/2012 YONATHAN RIOS MD 787.01 NAUSEA WITH VOMITING 05/01/2012 ROSELINE LUIS PHD 599.0 URINARY TRACT INFECTION SITE NOT SPECIFIED 05/01/2012 ROSELINE LUIS PHD 787.01 NAUSEA WITH VOMITING 05/01/2012 ROSELINE LUIS PHD 599.0 URINARY TRACT INFECTION SITE NOT SPECIFIED 05/01/2012 ROSELINE LUIS PHD 787.01 NAUSEA WITH VOMITING 05/01/2012 NOEMI WASHBURN APRN S 599.0 URINARY TRACT INFECTION SITE NOT SPECIFIED 05/01/2012 JOSE WASHBURN APRNA S 787.01 NAUSEA WITH VOMITING 05/01/2012 ROSELINE LUIS PHD 599.0 URINARY TRACT INFECTION SITE NOT SPECIFIED 05/01/2012 ROSELINE LUIS PHD 787.01 NAUSEA WITH VOMITING 05/01/2012 YONAHTAN RIOS MD 599.0 URINARY TRACT INFECTION SITE NOT SPECIFIED 05/01/2012 YONATHAN RIOS MD 787.01 NAUSEA WITH VOMITING 05/01/2012 JOSE WASHBURN APRNA S 599.0 URINARY TRACT INFECTION SITE NOT SPECIFIED 05/01/2012 JOSE WASHBURN APRNA S 787.01 NAUSEA WITH VOMITING 05/01/2012 JOSE WASHBURN APRNA S 599.0 URINARY TRACT INFECTION SITE NOT SPECIFIED 05/01/2012 NOEMI WASHBURN APRN S 787.01 NAUSEA WITH VOMITING 05/01/2012 TIERRA LOZADA GABBIE HOMAR 599.0 URINARY TRACT INFECTION SITE NOT SPECIFIED 05/01/2012 TIERRA LOZADA GABBIE HOMAR 787.01 NAUSEA WITH VOMITING 05/01/2012 ROSELINE LUIS PHD 599.0 URINARY TRACT INFECTION SITE NOT SPECIFIED 05/01/2012 ROSELINE LUIS PHD 787.01 NAUSEA WITH VOMITING 05/01/2012 ROSELINE LUIS PHD 599.0 URINARY TRACT INFECTION SITE NOT SPECIFIED 05/01/2012 ROSELINE LUIS PHD 787.01 NAUSEA WITH VOMITING 05/01/2012 YONATHAN RIOS MD 599.0 URINARY TRACT INFECTION SITE NOT SPECIFIED 05/01/2012 YONATHAN RIOS MD 787.01 NAUSEA WITH VOMITING 05/01/2012 ROSELINE LUIS PHD 599.0 URINARY TRACT INFECTION SITE NOT SPECIFIED 05/01/2012 ROSELINE LUIS PHD 787.01 NAUSEA WITH VOMITING 05/01/2012 TIERRA LOZADA GABBIE [place] 599.0 URINARY TRACT INFECTION SITE NOT SPECIFIED 05/01/2012 TIERRA LOZADA GABBIE HOMAR 787.01 NAUSEA WITH VOMITING 05/01/2012 SCHULZ DO, TREVOR K 599.0 URINARY TRACT INFECTION SITE NOT SPECIFIED 05/01/2012 SCHULZ DOTREVOR K 787.01 NAUSEA WITH VOMITING 05/01/2012 NOEMI WASHBURN APRN S 599.0 URINARY TRACT INFECTION SITE NOT SPECIFIED 05/01/2012 NOEMI WASHBURN APRN 787.01 NAUSEA WITH VOMITING 05/01/2012 ROSELINE LUIS PHD 599.0 URINARY TRACT INFECTION SITE NOT SPECIFIED 05/01/2012 ROSELINE LUIS PHD 787.01 NAUSEA WITH VOMITING 05/01/2012 ROSELINE LUIS PHD 599.0 URINARY TRACT INFECTION SITE NOT SPECIFIED 05/01/2012 ROSELINE LUIS PHD 787.01 NAUSEA WITH VOMITING 05/01/2012 GABBIE MAYORGA APRN 599.0 URINARY TRACT INFECTION SITE NOT SPECIFIED 05/01/2012 GABBIE MAYORGA APRN 787.01 NAUSEA WITH VOMITING 05/01/2012 ROSELINE LUIS PHD 599.0 URINARY TRACT INFECTION SITE NOT SPECIFIED 05/01/2012 ROSELINE LUIS PHD 787.01 NAUSEA WITH VOMITING 05/01/2012 YONATHAN RIOS MD 599.0 URINARY TRACT INFECTION SITE NOT SPECIFIED 05/01/2012 YONATHAN RIOS MD 787.01 NAUSEA WITH VOMITING 05/01/2012 LESLY WEAVER APRN 599.0 URINARY TRACT INFECTION SITE NOT SPECIFIED 05/01/2012 LESLY WEAVER APRN 787.01 NAUSEA WITH VOMITING 05/01/2012 ROSELINE LUIS PHD 599.0 URINARY TRACT INFECTION SITE NOT SPECIFIED 05/01/2012 ROSELINE LUIS PHD 787.01 NAUSEA WITH VOMITING 05/01/2012 ARIANE RODRIGUEZ APRN R 599.0 URINARY TRACT INFECTION SITE NOT SPECIFIED 05/01/2012 ARIANE RODRIGUEZ APRN 787.01 NAUSEA WITH VOMITING 05/01/2012 ROSELINE LUIS PHD 599.0 URINARY TRACT INFECTION SITE NOT SPECIFIED 05/01/2012 ROSELINE LUIS PHD 787.01 NAUSEA WITH VOMITING 05/01/2012 SP CARR APRN 599.0 URINARY TRACT INFECTION SITE NOT SPECIFIED 05/01/2012 SP CARR APRN 787.01 NAUSEA WITH VOMITING 05/01/2012 TREVOR SCHULZ DO K 599.0 URINARY TRACT INFECTION SITE NOT SPECIFIED 05/01/2012 TREVOR SCHULZ DO 787.01 NAUSEA WITH VOMITING 05/01/2012 ROSELINE LUIS PHD 599.0 URINARY TRACT INFECTION SITE NOT SPECIFIED 05/01/2012 ROSELINE LUIS PHD 787.01 NAUSEA WITH VOMITING 05/01/2012 YONATHAN RIOS MD 599.0 URINARY TRACT INFECTION SITE NOT SPECIFIED 05/01/2012 YONATHAN RIOS MD 787.01 NAUSEA WITH VOMITING 05/01/2012 ROSELINE LUIS PHD 599.0 URINARY TRACT INFECTION SITE NOT SPECIFIED 05/01/2012 ROSELINE LUIS PHD 787.01 NAUSEA WITH VOMITING 05/01/2012 NADINE HARP MD 599.0 URINARY TRACT INFECTION SITE NOT SPECIFIED 05/01/2012 NADINE HARP MD 787.01 NAUSEA WITH VOMITING 05/01/2012 WU CHAIR, NOEMI S 599.0 URINARY TRACT INFECTION SITE NOT SPECIFIED 05/01/2012 WU LOZADA NOEMI S 787.01 NAUSEA WITH VOMITING 05/01/2012 ROSELINE LUIS PHD 599.0 URINARY TRACT INFECTION SITE NOT SPECIFIED 05/01/2012 ROSELINE LUIS PHD 787.01 NAUSEA WITH VOMITING 05/01/2012 WU CHAIR NOEMI S 599.0 URINARY TRACT INFECTION SITE NOT SPECIFIED 05/01/2012 WU CHAIR, NOEMI S 787.01 NAUSEA WITH VOMITING 05/01/2012 YONATHAN RIOS MD 599.0 URINARY TRACT INFECTION SITE NOT SPECIFIED 05/01/2012 YONATHAN RIOS MD 787.01 NAUSEA WITH VOMITING 05/01/2012 WU CHAIR, NOEMI S 599.0 URINARY TRACT INFECTION SITE NOT SPECIFIED 05/01/2012 WU CHAIR, NOEMI S 787.01 NAUSEA WITH VOMITING 05/01/2012 WU CHAIR, NOEMI S 599.0 URINARY TRACT INFECTION SITE NOT SPECIFIED 05/01/2012 WU CHAIR, NOEMI S 787.01 NAUSEA WITH VOMITING 05/01/2012 ROSELINE LUIS PHD 599.0 URINARY TRACT INFECTION SITE NOT SPECIFIED 05/01/2012 ROSELINE LUIS PHD 787.01 NAUSEA WITH VOMITING 05/01/2012 ALYSE LIMA 599.0 URINARY TRACT INFECTION SITE NOT SPECIFIED 05/01/2012 ALYSE LIMA M 787.01 NAUSEA WITH VOMITING 05/01/2012 ALYSE LIMA M 599.0 URINARY TRACT INFECTION SITE NOT SPECIFIED 05/01/2012 LEXI FRENCH TEACHER, ALYSE M 787.01 NAUSEA WITH VOMITING 05/01/2012 WU CHAIR, NOEMI S 599.0 URINARY TRACT INFECTION SITE NOT SPECIFIED 05/01/2012 WU CHAIR, NOEMI S 787.01 NAUSEA WITH VOMITING 05/01/2012 WU CHAIR, NOEMI S 599.0 URINARY TRACT INFECTION SITE NOT SPECIFIED 05/01/2012 WU CHAIR, NOEMI S 787.01 NAUSEA WITH VOMITING 05/01/2012 ROSELINE LUIS PHD 599.0 URINARY TRACT INFECTION SITE NOT SPECIFIED 05/01/2012 ROSELINE LUIS PHD 787.01 NAUSEA WITH VOMITING 05/01/2012 WU CHAIR, NOEMI S 599.0 URINARY TRACT INFECTION SITE NOT SPECIFIED 05/01/2012 WU CHAIR, NOEMI S 787.01 NAUSEA WITH VOMITING 07/04/2012 ROSELINE LUIS PHD 278.01 OBESITY, MORBID (BMI >40) 07/04/2012 ROSELINE LUIS PHD 278.01 OBESITY, MORBID (BMI >40) 07/04/2012 278.01 OBESITY, MORBID (BMI >40) 07/04/2012 DIPTI WASHBURN APRNNDA S 278.01 OBESITY, MORBID (BMI >40) 07/04/2012 DIPTI WASHBURN APRNNDA S 278.01 OBESITY, MORBID (BMI >40) 07/04/2012 TREVOR SCHULZ DO 278.01 OBESITY, MORBID (BMI >40) 07/04/2012 278.01 OBESITY, MORBID (BMI >40) 07/04/2012 DIPTI WASHBURN APRNNDA S 278.01 OBESITY, MORBID (BMI >40) 07/04/2012 WU LOZADA NOEMI S 278.01 OBESITY, MORBID (BMI >40) 07/04/2012 ROSELINE LUIS PHD 278.01 OBESITY, MORBID (BMI >40) 07/04/2012 278.01 OBESITY, MORBID (BMI >40) 07/04/2012 278.01 OBESITY, MORBID (BMI >40) 07/04/2012 278.01 OBESITY, MORBID (BMI >40) 07/04/2012 RTEVOR SCHULZ DO 278.01 OBESITY, MORBID (BMI >40) 07/04/2012 ROSELINE LUIS PHD 278.01 OBESITY, MORBID (BMI >40) 07/04/2012 TREVOR SCHULZ DO 278.01 OBESITY, MORBID (BMI >40) 07/04/2012 GABBIE MAYORGA APRN 278.01 OBESITY, MORBID (BMI >40) 07/04/2012 YONATHAN RIOS MD 278.01 OBESITY, MORBID (BMI >40) 07/04/2012 YONATHAN RIOS MD 278.01 OBESITY, MORBID (BMI >40) 07/04/2012 ROSELINE LUIS PHD 278.01 OBESITY, MORBID (BMI >40) 07/04/2012 ROSELINE LUIS PHD 278.01 OBESITY, MORBID (BMI >40) 07/04/2012 NOEMI WASHBURN APRN 278.01 OBESITY, MORBID (BMI >40) 07/04/2012 ROSELINE LUIS PHD 278.01 OBESITY, MORBID (BMI >40) 07/04/2012 YONATHAN RIOS MD 278.01 OBESITY, MORBID (BMI >40) 07/04/2012 NOEMI WASHBURN APRN 278.01 OBESITY, MORBID (BMI >40) 07/04/2012 NOEMI WASHBURN APRN 278.01 OBESITY, MORBID (BMI >40) 07/04/2012 GABBIE MAYORGA APRN 278.01 OBESITY, MORBID (BMI >40) 07/04/2012 ROSELINE LUIS PHD 278.01 OBESITY, MORBID (BMI >40) 07/04/2012 ROSELINE LUIS PHD 278.01 OBESITY, MORBID (BMI >40) 07/04/2012 YONATHAN RIOS MD 278.01 OBESITY, MORBID (BMI >40) 07/04/2012 ROSELINE LUIS PHD 278.01 OBESITY, MORBID (BMI >40) 07/04/2012 GABBIE MAYORGA APRN 278.01 OBESITY, MORBID (BMI >40) 07/04/2012 TREVOR SCHULZ DO 278.01 OBESITY, MORBID (BMI >40) 07/04/2012 NOEMI WASHBURN APRN 278.01 OBESITY, MORBID (BMI >40) 07/04/2012 TOBY JANE, ROSELINE Thakur 278.01 OBESITY, MORBID (BMI >40) 07/04/2012 TOBY JANE, ROSELINE Thakur 278.01 OBESITY, MORBID (BMI >40) 07/04/2012 GABBIE MAYORGA APRN 278.01 OBESITY, MORBID (BMI >40) 07/04/2012 TOBY JANE, ROSELINE Thakur 278.01 OBESITY, MORBID (BMI >40) 07/04/2012 YONATHAN RIOS MD 278.01 OBESITY, MORBID (BMI >40) 07/04/2012 LESLY WEAVER APRN 278.01 OBESITY, MORBID (BMI >40) 07/04/2012 TOBY JANE, ROSELINE Thakur 278.01 OBESITY, MORBID (BMI >40) 07/04/2012 ARIANE RODRIGUEZ APRN 278.01 OBESITY, MORBID (BMI >40) 07/04/2012 TOBY JANE, ROSELINE Thakur 278.01 OBESITY, MORBID (BMI >40) 07/04/2012 SP CARR APRN 278.01 OBESITY, MORBID (BMI >40) 07/04/2012 TREVOR SCHULZ DO 278.01 OBESITY, MORBID (BMI >40) 07/04/2012 TOBY JANE, ROSELINE Thakur 278.01 OBESITY, MORBID (BMI >40) 07/04/2012 YONATHAN RIOS MD 278.01 OBESITY, MORBID (BMI >40) 07/04/2012 TOBY JANE, ROSELINE Thakur 278.01 OBESITY, MORBID (BMI >40) 07/04/2012 LOYD ROBINS, NADINE Baum 278.01 OBESITY, MORBID (BMI >40) 07/04/2012 NOEMI WASHBURN APRN S 278.01 OBESITY, MORBID (BMI >40) 07/04/2012 TOBY JANE, ROSELINE Thakur 278.01 OBESITY, MORBID (BMI >40) 07/04/2012 NOEMI WASHBURN APRN S 278.01 OBESITY, MORBID (BMI >40) 07/04/2012 YONATHAN RIOS MD 278.01 OBESITY, MORBID (BMI >40) 07/04/2012 NOEMI WASHBURN APRN S 278.01 OBESITY, MORBID (BMI >40) 07/04/2012 NOEMI WASHBURN APRN S 278.01 OBESITY, MORBID (BMI >40) 07/04/2012 ROSELINE LUIS PHD 278.01 OBESITY, MORBID (BMI >40) 07/04/2012 ALYSE LIMA Holden 278.01 OBESITY, MORBID (BMI >40) 07/04/2012 ALYSE LIMA Holden 278.01 OBESITY, MORBID (BMI >40) 07/04/2012 NOEMI WASHBURN APRN S 278.01 OBESITY, MORBID (BMI >40) 07/04/2012 NOEMI WASHBURN APRN S 278.01 OBESITY, MORBID (BMI >40) 07/04/2012 TOBY JANE, ROSELINE Thakur 278.01 OBESITY, MORBID (BMI >40) 07/04/2012 NOEMI WASHBURN APRN S 278.01 OBESITY, MORBID (BMI >40) 08/27/2012 Ot 250.80 DIAB W OTH SPEC MANIFEST, TYPE II OR UNS 08/27/2012 Ot 278.01 MORBID OBESITY 08/27/2012 Ot 296.80 BIPOLAR DISORDER, UNSPECIFIED 08/27/2012 Ot 345.90 EPILEPSY UNSPEC W/O MENTION INTRACTABLE 08/27/2012 Ot 346.90 MIGRAINE UNSPECIFIED W/O INTRACT MGRN W/ 08/27/2012 Ot 401.9 HYPERTENSION NOS 08/27/2012 Ot 780.97 ALTERED MENTAL STATUS 08/27/2012 Ot V58.67 LONG-TERM ( CURRENT) USE OF INSULIN 08/27/2012 Ot V85.43 BODY MASS INDEX 50.0-59.9, ADULT 10/17/2012 TREVOR SCHULZ DO 414.00 CAD 10/17/2012 414.00 CAD 10/17/2012 NOEMI WASHBURN APRN S 414.00 CAD 10/17/2012 NOEMI WASHBURN APRN S 414.00 CAD 10/17/2012 TOBY PHD, ROSELINE Thakur 414.00 CAD 10/17/2012 414.00 CAD 10/17/2012 414.00 CAD 10/17/2012 414.00 CAD 10/17/2012 TREVOR SCHULZ DO 414.00 CAD 10/17/2012 TOBY PHD, ROSELINE Thakur 414.00 CAD 10/17/2012 TREVOR SCHULZ DO 414.00 CAD 10/17/2012 TIERRA LOZADA GABBIE GRAF 414.00 CAD 10/17/2012 BLANCA ROBINS, YONATHAN 414.00 CAD 10/17/2012 BLANCA ROBINS, YONATHAN 414.00 CAD 10/17/2012 TOBY PHD, ROSELINE D 414.00 CAD 10/17/2012 TOBY PHD, ROSEILNE D 414.00 CAD 10/17/2012 WU LOZADA, NOEMI S 414.00 CAD 10/17/2012 TOBY PHD, ROSELINE D 414.00 CAD 10/17/2012 BLANCA ROBINS, YONATHAN 414.00 CAD 10/17/2012 WU CHAIR, NOEMI S 414.00 CAD 10/17/2012 WU LOZADA, NOEMI S 414.00 CAD 10/17/2012 TIERRA ARROYON, GABBIE GRAF 414.00 CAD 10/17/2012 TOBY PHD, ROSELINE D 414.00 CAD 10/17/2012 TOBY PHD, ROSELINE Thakur 414.00 CAD 10/17/2012 BLANCA ROBINS, YONATHAN 414.00 CAD 10/17/2012 TOBY PHD, ROSELINE Thakur 414.00 CAD 10/17/2012 TIERRA CHAIR, GABBIE GRAF 414.00 CAD 10/17/2012 SCHULZ DO, TREVOR Lam 414.00 CAD 10/17/2012 WU LOZADA, NOEMI S 414.00 CAD 10/17/2012 TOBY PHD, ROSELINE D 414.00 CAD 10/17/2012 TOBY PHD, ROSELINE D 414.00 CAD 10/17/2012 TIERRA LOZADA, GABBIE GRAF 414.00 CAD 10/17/2012 TOBY PHD, ROSELINE D 414.00 CAD 10/17/2012 BLANAC ROBINS, YONATHAN 414.00 CAD 10/17/2012 OWEN CHAIR, LESLY R 414.00 CAD 10/17/2012 TOBY PHD, ROSELINE D 414.00 CAD 10/17/2012 JENNIFER CHAIR, ARIANE R 414.00 CAD 10/17/2012 TOBY PHD, ROSELINE Thakur 414.00 CAD 10/17/2012 LILLY CHAIR, SP [place] 414.00 CAD 10/17/2012 SCHULZ DO, TREVOR K 414.00 CAD 10/17/2012 TOBY PHD, ROSELINE Thakur 414.00 CAD 10/17/2012 BLANCA ROBINS, YONATHAN 414.00 CAD 10/17/2012 TOBY PHD, ROSELINE Thakur 414.00 CAD 10/17/2012 LOYD ROBINS, NADINE Baum 414.00 CAD 10/17/2012 WU LOZADA, NOEMI S 414.00 CAD 10/17/2012 TOBY PHD, ROSELINE Thakur 414.00 CAD 10/17/2012 WU LOZADA, NOEMI S 414.00 CAD 10/17/2012 BLANCA ROBINS, YONATHAN 414.00 CAD 10/17/2012 WU LOZADA, NOEMI S 414.00 CAD 10/17/2012 WU LOZADA, NOEMI S 414.00 CAD 10/17/2012 TOBY PHD, ROSELINE Thakur 414.00 CAD 10/17/2012 LEXI FRENCH TEACHER, ALYSE M 414.00 CAD 10/17/2012 LEXI FRENCH TEACHER, ALYSE M 414.00 CAD 10/17/2012 WU ARROYON, NOEMI S 414.00 CAD 10/17/2012 WU LOZADA, NOEMI S 414.00 CAD 10/17/2012 TOBY PHD, ROSELINE Thakur 414.00 CAD 10/17/2012 WU LOZADA, NOEMI S 414.00 CAD 04/05/2013 CECILIA ROBINS, JEN Lam Ot 787.01 NAUSEA WITH VOMITING 04/18/2013 724.2 LUMBAGO/ LOW BACK PAIN 04/18/2013 724.2 LUMBAGO/ LOW BACK PAIN 04/18/2013 SCHULZ DOTREVOR 724.2 LUMBAGO/ LOW BACK PAIN 04/18/2013 TOBY PHD, ROSELINE Thakur 724.2 LUMBAGO/ LOW BACK PAIN 04/18/2013 SCHULZ DOTREVOR 724.2 LUMBAGO/ LOW BACK PAIN 04/18/2013 GABBIE MAYORGA APRN 724.2 LUMBAGO/ LOW BACK PAIN 04/18/2013 YONATHAN RIOS MD 724.2 LUMBAGO/ LOW BACK PAIN 04/18/2013 YONATHAN RIOS MD 724.2 LUMBAGO/ LOW BACK PAIN 04/18/2013 TOBY PHD, ROSELINE Thakur 724.2 LUMBAGO/ LOW BACK PAIN 04/18/2013 TOBY PHD, ROSELINE Thakur 724.2 LUMBAGO/ LOW BACK PAIN 04/18/2013 WU LOZADA, NOEMI S 724.2 LUMBAGO/ LOW BACK PAIN 04/18/2013 TOBY PHD, ROSELINE Thakur 724.2 LUMBAGO/ LOW BACK PAIN 04/18/2013 YONATHAN RIOS MD 724.2 LUMBAGO/ LOW BACK PAIN 04/18/2013 WU LOZADA, NOEMI S 724.2 LUMBAGO/ LOW BACK PAIN 04/18/2013 NOEMI WASHBURN APRN S 724.2 LUMBAGO/ LOW BACK PAIN 04/18/2013 TIERRA LOZADA, GABBIE GRAF 724.2 LUMBAGO/ LOW BACK PAIN 04/18/2013 TOBY PHD, ROSELINE Thakur 724.2 LUMBAGO/ LOW BACK PAIN 04/18/2013 TOBY PHD, ROSELINE Thakur 724.2 LUMBAGO/ LOW BACK PAIN 04/18/2013 BLANCA ROBINS, YONATHAN 724.2 LUMBAGO/ LOW BACK PAIN 04/18/2013 TOBY PHD, ROSELINE Thakur 724.2 LUMBAGO/ LOW BACK PAIN 04/18/2013 TIERRA LOZADA, GABBIE [place] 724.2 LUMBAGO/ LOW BACK PAIN 04/18/2013 JAZZ DO, TREVOR K 724.2 LUMBAGO/ LOW BACK PAIN 04/18/2013 WU LOZADA, NOEMI S 724.2 LUMBAGO/ LOW BACK PAIN 04/18/2013 TOBY PHD, ROSELINE Thakur 724.2 LUMBAGO/ LOW BACK PAIN 04/18/2013 TOBY PHD, ROSELINE Thakur 724.2 LUMBAGO/ LOW BACK PAIN 04/18/2013 TIERRA LOZADA, GABBIE [place] 724.2 LUMBAGO/ LOW BACK PAIN 04/18/2013 TOBY PHD, ROSELINE Thakur 724.2 LUMBAGO/ LOW BACK PAIN 04/18/2013 BLANCA ROBINS, YONATHAN 724.2 LUMBAGO/ LOW BACK PAIN 04/18/2013 OWEN ARROYON, LESLY R 724.2 LUMBAGO/ LOW BACK PAIN 04/18/2013 TOBY PHD, ROSELINE Thakur 724.2 LUMBAGO/ LOW BACK PAIN 04/18/2013 JENNIFER ARROYON, ARIANE R 724.2 LUMBAGO/ LOW BACK PAIN 04/18/2013 TOBY PHD, ROSELINE Thakur 724.2 LUMBAGO/ LOW BACK PAIN 04/18/2013 LILLY ARROYON, SP [place] 724.2 LUMBAGO/ LOW BACK PAIN 04/18/2013 SCHULZ DO, TREVOR K 724.2 LUMBAGO/ LOW BACK PAIN 04/18/2013 TOBY PHD, ROSELINE Thakur 724.2 LUMBAGO/ LOW BACK PAIN 04/18/2013 YONATHAN RIOS MD 724.2 LUMBAGO/ LOW BACK PAIN 04/18/2013 TOBY PHD, ROSELINE Thakur 724.2 LUMBAGO/ LOW BACK PAIN 04/18/2013 LOYD ROBINS, NADINE Baum 724.2 LUMBAGO/ LOW BACK PAIN 04/18/2013 WU LOZADA, NOEMI S 724.2 LUMBAGO/ LOW BACK PAIN 04/18/2013 TOBY PHD, ROSELINE Thakur 724.2 LUMBAGO/ LOW BACK PAIN 04/18/2013 WU LOZADA, NOEMI S 724.2 LUMBAGO/ LOW BACK PAIN 04/18/2013 BLANCA ROBINS, YONATHAN 724.2 LUMBAGO/ LOW BACK PAIN 04/18/2013 WU LOZADA, NOEMI S 724.2 LUMBAGO/ LOW BACK PAIN 04/18/2013 WU LOZADA, NOEMI S 724.2 LUMBAGO/ LOW BACK PAIN 04/18/2013 TOBY PHD, ROSELINE Thakur 724.2 LUMBAGO/ LOW BACK PAIN 04/18/2013 ALYSE LIMA 724.2 LUMBAGO/ LOW BACK PAIN 04/18/2013 ALYSE LIMA 724.2 LUMBAGO/ LOW BACK PAIN 04/18/2013 WU LOZADA, NOEMI S 724.2 LUMBAGO/ LOW BACK PAIN 04/18/2013 WU LOZADA, NOEMI S 724.2 LUMBAGO/ LOW BACK PAIN 04/18/2013 TOBY JANE, ROSELINE Thakur 724.2 LUMBAGO/ LOW BACK PAIN 04/18/2013 WU LOZADA, NOEMI S 724.2 LUMBAGO/ LOW BACK PAIN 05/29/2013 VIKTOR ROBINS, DAISY [place] Ot 959.3 ELB/FOREARM/WRST INJ NOS 05/29/2013 VIKTOR ROBINS, DAISY [place] Ot E000.8 OTHER EXTERNAL CAUSE STATUS 05/29/2013 VIKTOR ROBINS, DAISY [place] Ot E849.0 ACCIDENT IN HOME 05/29/2013 DAISY HOANG MD Ot E888.9 FALL NOS 06/05/2013 719.41 PAIN- SHOULDER 06/05/2013 814.00 CLOSED FRACTURE OF CARPAL BONE UNSPECIFIED 06/05/2013 JAZZ STROUD TREVOR K 719.41 PAIN- SHOULDER 06/05/2013 JAZZ STROUD, TREVOR K 814.00 CLOSED FRACTURE OF CARPAL BONE UNSPECIFIED 06/05/2013 ROSELINE LUIS PHD 719.41 PAIN- SHOULDER 06/05/2013 ROSELINE LUIS PHD 814.00 CLOSED FRACTURE OF CARPAL BONE UNSPECIFIED 06/05/2013 JAZZ STROUD TREVOR K 719.41 PAIN- SHOULDER 06/05/2013 JAZZ STROUD TREVOR K 814.00 CLOSED FRACTURE OF CARPAL BONE UNSPECIFIED 06/05/2013 GABBIE MAYORGA APRN 719.41 PAIN- SHOULDER 06/05/2013 TIERRA LOZADA GABBIE [place] 814.00 CLOSED FRACTURE OF CARPAL BONE UNSPECIFIED 06/05/2013 YONATHAN RIOS MD 719.41 PAIN- SHOULDER 06/05/2013 YONATHAN RIOS MD 814.00 CLOSED FRACTURE OF CARPAL BONE UNSPECIFIED 06/05/2013 YONATHAN RIOS MD 719.41 PAIN- SHOULDER 06/05/2013 YONATHAN RIOS MD 814.00 CLOSED FRACTURE OF CARPAL BONE UNSPECIFIED 06/05/2013 ROSELINE LUIS PHD 719.41 PAIN- SHOULDER 06/05/2013 ROSELINE LUIS PHD 814.00 CLOSED FRACTURE OF CARPAL BONE UNSPECIFIED 06/05/2013 ROSELINE LUIS PHD 719.41 PAIN- SHOULDER 06/05/2013 ROSELINE LUIS PHD 814.00 CLOSED FRACTURE OF CARPAL BONE UNSPECIFIED 06/05/2013 NOEMI WASHBURN APRN S 719.41 PAIN- SHOULDER 06/05/2013 NOEMI WASHBURN APRN S 814.00 CLOSED FRACTURE OF CARPAL BONE UNSPECIFIED 06/05/2013 ROSELINE LUIS PHD 719.41 PAIN- SHOULDER 06/05/2013 ROSELINE LUIS PHD 814.00 CLOSED FRACTURE OF CARPAL BONE UNSPECIFIED 06/05/2013 YONATHAN RIOS MD 719.41 PAIN- SHOULDER 06/05/2013 YONATHAN RIOS MD 814.00 CLOSED FRACTURE OF CARPAL BONE UNSPECIFIED 06/05/2013 WU CHAIR, NOEMI S 719.41 PAIN- SHOULDER 06/05/2013 WU LOZADA NOEMI S 814.00 CLOSED FRACTURE OF CARPAL BONE UNSPECIFIED 06/05/2013 WU LOZADA NOEMI S 719.41 PAIN- SHOULDER 06/05/2013 JOSE WASHBURN APRNA S 814.00 CLOSED FRACTURE OF CARPAL BONE UNSPECIFIED 06/05/2013 TIERRA LOZADA GABBIE GRAF 719.41 PAIN- SHOULDER 06/05/2013 TIERRA LOZADA G[place]BIE [place] 814.00 CLOSED FRACTURE OF CARPAL BONE UNSPECIFIED 06/05/2013 ROSELINE LUIS PHD 719.41 PAIN- SHOULDER 06/05/2013 ROSELINE LUIS PHD 814.00 CLOSED FRACTURE OF CARPAL BONE UNSPECIFIED 06/05/2013 ROSELINE LUIS PHD 719.41 PAIN- SHOULDER 06/05/2013 ROSELINE LUIS PHD 814.00 CLOSED FRACTURE OF CARPAL BONE UNSPECIFIED 06/05/2013 YONATHAN RIOS MD 719.41 PAIN- SHOULDER 06/05/2013 YONATHAN RIOS MD 814.00 CLOSED FRACTURE OF CARPAL BONE UNSPECIFIED 06/05/2013 ROSELINE LUIS PHD 719.41 PAIN- SHOULDER 06/05/2013 ROSELINE LUIS PHD 814.00 CLOSED FRACTURE OF CARPAL BONE UNSPECIFIED 06/05/2013 TIERRA LOZADA G[place]BIE [place] 719.41 PAIN- SHOULDER 06/05/2013 TIERRA LOZADA G[place]BI[place] 814.00 CLOSED FRACTURE OF CARPAL BONE UNSPECIFIED 06/05/2013 SCHULZ DO TREVOR K 719.41 PAIN- SHOULDER 06/05/2013 SCHULZ DO TREVOR K 814.00 CLOSED FRACTURE OF CARPAL BONE UNSPECIFIED 06/05/2013 WU LOZADA NOEMI S 719.41 PAIN- SHOULDER 06/05/2013 WU LOZADA NOEMI S 814.00 CLOSED FRACTURE OF CARPAL BONE UNSPECIFIED 06/05/2013 ROSELINE LUIS PHD 719.41 PAIN- SHOULDER 06/05/2013 ROSELINE LUIS PHD 814.00 CLOSED FRACTURE OF CARPAL BONE UNSPECIFIED 06/05/2013 ROSELINE LUIS PHD 719.41 PAIN- SHOULDER 06/05/2013 ROSELINE LUIS PHD 814.00 CLOSED FRACTURE OF CARPAL BONE UNSPECIFIED 06/05/2013 TIERRA LOZADA GABBIE GRAF 719.41 PAIN- SHOULDER 06/05/2013 TIERRA LOZADA GABBIE GRAF 814.00 CLOSED FRACTURE OF CARPAL BONE UNSPECIFIED 06/05/2013 ROSELINE LUIS PHD 719.41 PAIN- SHOULDER 06/05/2013 ROSELINE LUIS PHD 814.00 CLOSED FRACTURE OF CARPAL BONE UNSPECIFIED 06/05/2013 YONATHAN RIOS MD 719.41 PAIN- SHOULDER 06/05/2013 YONATHAN RIOS MD 814.00 CLOSED FRACTURE OF CARPAL BONE UNSPECIFIED 06/05/2013 LESLY WEAVER APRN R 719.41 PAIN- SHOULDER 06/05/2013 LESLY WEAVER APRN R 814.00 CLOSED FRACTURE OF CARPAL BONE UNSPECIFIED 06/05/2013 ROSELINE LUIS PHD 719.41 PAIN- SHOULDER 06/05/2013 ROSELINE LUIS PHD 814.00 CLOSED FRACTURE OF CARPAL BONE UNSPECIFIED 06/05/2013 JENNIFER LOZADA ARIANE R 719.41 PAIN- SHOULDER 06/05/2013 JENNIFER LOZADA ARIANE R 814.00 CLOSED FRACTURE OF CARPAL BONE UNSPECIFIED 06/05/2013 ROSELINE LUIS PHD 719.41 PAIN- SHOULDER 06/05/2013 ROSELINE LUIS PHD 814.00 CLOSED FRACTURE OF CARPAL BONE UNSPECIFIED 06/05/2013 SP CARR APRN 719.41 PAIN- SHOULDER 06/05/2013 SP CARR APRN 814.00 CLOSED FRACTURE OF CARPAL BONE UNSPECIFIED 06/05/2013 SCHULZ DOLURDESA K 719.41 PAIN- SHOULDER 06/05/2013 SCHULZ DOLURDESA K 814.00 CLOSED FRACTURE OF CARPAL BONE UNSPECIFIED 06/05/2013 ROSELINE LUIS PHD 719.41 PAIN- SHOULDER 06/05/2013 ROSELINE LUIS PHD 814.00 CLOSED FRACTURE OF CARPAL BONE UNSPECIFIED 06/05/2013 YONATHAN RIOS MD 719.41 PAIN- SHOULDER 06/05/2013 YONATHAN RIOS MD 814.00 CLOSED FRACTURE OF CARPAL BONE UNSPECIFIED 06/05/2013 ROSELINE LUIS PHD 719.41 PAIN- SHOULDER 06/05/2013 TOBY JANE, ROSELINE Thakur 814.00 CLOSED FRACTURE OF CARPAL BONE UNSPECIFIED 06/05/2013 NADINE HARP MD 719.41 PAIN- SHOULDER 06/05/2013 NADINE HARP MD 814.00 CLOSED FRACTURE OF CARPAL BONE UNSPECIFIED 06/05/2013 WU LOZADA NOEMI S 719.41 PAIN- SHOULDER 06/05/2013 WU LOZADA NOEMI S 814.00 CLOSED FRACTURE OF CARPAL BONE UNSPECIFIED 06/05/2013 TOBY JANE, ROSELINE Thakur 719.41 PAIN- SHOULDER 06/05/2013 TOBY JANE, ROSELINE Thakur 814.00 CLOSED FRACTURE OF CARPAL BONE UNSPECIFIED 06/05/2013 WU LOZADA NOEMI S 719.41 PAIN- SHOULDER 06/05/2013 WU LOZADA NOEMI S 814.00 CLOSED FRACTURE OF CARPAL BONE UNSPECIFIED 06/05/2013 YONATHAN RIOS MD 719.41 PAIN- SHOULDER 06/05/2013 YONATHAN RIOS MD 814.00 CLOSED FRACTURE OF CARPAL BONE UNSPECIFIED 06/05/2013 WU LOZADA NOEMI S 719.41 PAIN- SHOULDER 06/05/2013 WU LOZADA NOEMI S 814.00 CLOSED FRACTURE OF CARPAL BONE UNSPECIFIED 06/05/2013 WU LOZADA NOEMI S 719.41 PAIN- SHOULDER 06/05/2013 WU LOZADA NOEMI S 814.00 CLOSED FRACTURE OF CARPAL BONE UNSPECIFIED 06/05/2013 TOBY JANE, ROSELINE Thakur 719.41 PAIN- SHOULDER 06/05/2013 TOBY JANE, ROSELINE Thakur 814.00 CLOSED FRACTURE OF CARPAL BONE UNSPECIFIED 06/05/2013 ALYSE LIMA M 719.41 PAIN- SHOULDER 06/05/2013 ALYSE LIMA M 814.00 CLOSED FRACTURE OF CARPAL BONE UNSPECIFIED 06/05/2013 LEXI LEWIS, ALYSE M 719.41 PAIN- SHOULDER 06/05/2013 ALYSE LIMA M 814.00 CLOSED FRACTURE OF CARPAL BONE UNSPECIFIED 06/05/2013 WU LOZADA NOEMI S 719.41 PAIN- SHOULDER 06/05/2013 WU CHAIR, NOEMI S 814.00 CLOSED FRACTURE OF CARPAL BONE UNSPECIFIED 06/05/2013 WU CHAIR, NOEMI S 719.41 PAIN- SHOULDER 06/05/2013 WU CHAIR, NOEMI S 814.00 CLOSED FRACTURE OF CARPAL BONE UNSPECIFIED 06/05/2013 ROSELINE LUIS PHD 719.41 PAIN- SHOULDER 06/05/2013 ROSELINE LUIS PHD 814.00 CLOSED FRACTURE OF CARPAL BONE UNSPECIFIED 06/05/2013 WU LOZADA, NOEMI S 719.41 PAIN- SHOULDER 06/05/2013 WU CHAIR, NOEMI S 814.00 CLOSED FRACTURE OF CARPAL BONE UNSPECIFIED 07/04/2013 TREVOR SCHULZ DO 923.11 CONTUSION OF ELBOW 07/04/2013 GABBIE MAYORGA APRN 923.11 CONTUSION OF ELBOW 07/04/2013 YONATHAN RIOS MD 923.11 CONTUSION OF ELBOW 07/04/2013 YONATHAN RIOS MD 923.11 CONTUSION OF ELBOW 07/04/2013 ROSELINE LUIS PHD 923.11 CONTUSION OF ELBOW 07/04/2013 ROSELINE LUIS PHD 923.11 CONTUSION OF ELBOW 07/04/2013 DIPTI WASHBURN APRNNDA S 923.11 CONTUSION OF ELBOW 07/04/2013 ROSELINE LUIS PHD 923.11 CONTUSION OF ELBOW 07/04/2013 YONATHAN RIOS MD 923.11 CONTUSION OF ELBOW 07/04/2013 DIPTI WASHBURN APRNNDA S 923.11 CONTUSION OF ELBOW 07/04/2013 WU LOZADA NOEMI S 923.11 CONTUSION OF ELBOW 07/04/2013 GABBIE MAYROGA APRN 923.11 CONTUSION OF ELBOW 07/04/2013 ROSELINE LUIS PHD 923.11 CONTUSION OF ELBOW 07/04/2013 ROSELINE LUIS PHD 923.11 CONTUSION OF ELBOW 07/04/2013 YONATHAN RIOS MD 923.11 CONTUSION OF ELBOW 07/04/2013 ROSELINE LUIS PHD 923.11 CONTUSION OF ELBOW 07/04/2013 GABBIE MAYORGA APRN 923.11 CONTUSION OF ELBOW 07/04/2013 SCHULZ DO, TREVOR K 923.11 CONTUSION OF ELBOW 07/04/2013 JOSE WASHBURN APRNA S 923.11 CONTUSION OF ELBOW 07/04/2013 ROSELINE LUIS PHD 923.11 CONTUSION OF ELBOW 07/04/2013 ROSELINE LUIS PHD 923.11 CONTUSION OF ELBOW 07/04/2013 GABBIE MAYORGA APRN 923.11 CONTUSION OF ELBOW 07/04/2013 ROSELINE LUIS PHD 923.11 CONTUSION OF ELBOW 07/04/2013 YONATHAN RIOS MD 923.11 CONTUSION OF ELBOW 07/04/2013 LESLY WEAVER APRN 923.11 CONTUSION OF ELBOW 07/04/2013 ROSELINE LUIS PHD 923.11 CONTUSION OF ELBOW 07/04/2013 ARIANE RODRIGUEZ APRN 923.11 CONTUSION OF ELBOW 07/04/2013 ROSELINE LUIS PHD 923.11 CONTUSION OF ELBOW 07/04/2013 SP CARR APRN 923.11 CONTUSION OF ELBOW 07/04/2013 SCHULZ DO TREVOR K 923.11 CONTUSION OF ELBOW 07/04/2013 ROSELINE LUIS PHD 923.11 CONTUSION OF ELBOW 07/04/2013 YONATHAN RIOS MD 923.11 CONTUSION OF ELBOW 07/04/2013 ROSELINE LUIS PHD 923.11 CONTUSION OF ELBOW 07/04/2013 NADINE HARP MD 923.11 CONTUSION OF ELBOW 07/04/2013 JOSE WASHBURN APRNA S 923.11 CONTUSION OF ELBOW 07/04/2013 ROSELINE LUIS PHD 923.11 CONTUSION OF ELBOW 07/04/2013 DIPTI WASHBURN APRNNDA S 923.11 CONTUSION OF ELBOW 07/04/2013 YONATHAN RIOS MD 923.11 CONTUSION OF ELBOW 07/04/2013 JOSE WASHBURN APRNA S 923.11 CONTUSION OF ELBOW 07/04/2013 DIPTI WASHBURN APRNNDA S 923.11 CONTUSION OF ELBOW 07/04/2013 ROSELINE LUIS PHD 923.11 CONTUSION OF ELBOW 07/04/2013 LEXI FRENCH TEACHER, ALYSE M 923.11 CONTUSION OF ELBOW 07/04/2013 LEXI FRENCH TEACHER, ALYSE M 923.11 CONTUSION OF ELBOW 07/04/2013 NOEMI WASHBURN APRN S 923.11 CONTUSION OF ELBOW 07/04/2013 DIPTI WASHBURN APRNNDA S 923.11 CONTUSION OF ELBOW 07/04/2013 TOBY JANE, ROSELINE Thakur 923.11 CONTUSION OF ELBOW 07/04/2013 NOEMI WASHBURN APRN S 923.11 CONTUSION OF ELBOW 07/10/2013 GABBIE MAYORGA APRN 719.43 PAIN- WRIST 07/10/2013 YONATHAN RIOS MD 719.43 PAIN- WRIST 07/10/2013 YONATHAN RIOS MD 719.43 PAIN- WRIST 07/10/2013 ROSELINE LUIS PHD 719.43 PAIN- WRIST 07/10/2013 ROSELINE LUIS PHD 719.43 PAIN- WRIST 07/10/2013 NOEMI WASHBURN APRN 719.43 PAIN- WRIST 07/10/2013 ROSELINE LUIS PHD 719.43 PAIN- WRIST 07/10/2013 YONATHAN RIOS MD 719.43 PAIN- WRIST 07/10/2013 NOEMI WASHBURN APRN S 719.43 PAIN- WRIST 07/10/2013 NOEMI WASHBURN APRN S 719.43 PAIN- WRIST 07/10/2013 GABBIE MAYORGA APRN 719.43 PAIN- WRIST 07/10/2013 ROSELINE LUIS PHD 719.43 PAIN- WRIST 07/10/2013 ROSELINE LUIS PHD 719.43 PAIN- WRIST 07/10/2013 YONATHAN RIOS MD 719.43 PAIN- WRIST 07/10/2013 ROSELINE LUIS PHD 719.43 PAIN- WRIST 07/10/2013 GABBIE MAYORGA APRN 719.43 PAIN- WRIST 07/10/2013 TREVOR SCHULZ DO 719.43 PAIN- WRIST 07/10/2013 NOEMI WASHBURN APRN S 719.43 PAIN- WRIST 07/10/2013 ROSELINE LUIS PHD 719.43 PAIN- WRIST 07/10/2013 ROSELINE LUIS PHD 719.43 PAIN- WRIST 07/10/2013 TIERRA LOZADA GABBIE GRAF 719.43 PAIN- WRIST 07/10/2013 TOBY JANE, ROSELINE Thakur 719.43 PAIN- WRIST 07/10/2013 YONATHAN RIOS MD 719.43 PAIN- WRIST 07/10/2013 LESLY WEAVER APRN R 719.43 PAIN- WRIST 07/10/2013 TOBY PHD, ROSELINE Thakur 719.43 PAIN- WRIST 07/10/2013 JENNIFER ARROYON, ARIANE R 719.43 PAIN- WRIST 07/10/2013 TOBY PHD, ROSELINE Thakur 719.43 PAIN- WRIST 07/10/2013 LILLY LOZADA, SP [place] 719.43 PAIN- WRIST 07/10/2013 TREVOR SCHULZ DO 719.43 PAIN- WRIST 07/10/2013 TOBY JANE, ROSELINE Thakur 719.43 PAIN- WRIST 07/10/2013 YONATHAN RIOS MD 719.43 PAIN- WRIST 07/10/2013 TOBY JANE, ROSELINE Thakur 719.43 PAIN- WRIST 07/10/2013 LOYD ROBINS, NADINE Baum 719.43 PAIN- WRIST 07/10/2013 WU LOZADA, NOEMI S 719.43 PAIN- WRIST 07/10/2013 TOBY JANE, ROSELINE Thakur 719.43 PAIN- WRIST 07/10/2013 WU LOZADA NOEMI S 719.43 PAIN- WRIST 07/10/2013 YONATHAN RIOS MD 719.43 PAIN- WRIST 07/10/2013 WU LOZADA, NOEMI S 719.43 PAIN- WRIST 07/10/2013 WU LOZADA NOEMI S 719.43 PAIN- WRIST 07/10/2013 TOBY JANE, ROSELINE Thakur 719.43 PAIN- WRIST 07/10/2013 ALYSE LIMA 719.43 PAIN- WRIST 07/10/2013 ALYSE LIMA 719.43 PAIN- WRIST 07/10/2013 WU LOZADA, NOEMI S 719.43 PAIN- WRIST 07/10/2013 WU LOZADA, NOEMI S 719.43 PAIN- WRIST 07/10/2013 TOBY JANE, ROSELINE Thakur 719.43 PAIN- WRIST 07/10/2013 WU LOZADA, NOEMI S 719.43 PAIN- WRIST 07/30/2013 BLANCA ROBINS, YONATHAN V03.82 PPV23 (PNEUMOVAX) DX 07/30/2013 BLANCA ROBINS, YONATHAN V04.81 FLU SHOT 07/30/2013 BLANCA ROBINS, YONATHAN V03.82 PPV23 (PNEUMOVAX) DX 07/30/2013 BLANCA ROBINS, YONATHAN V04.81 FLU SHOT 07/30/2013 TOBY PHD, ROSELINE Thakur V03.82 PPV23 (PNEUMOVAX) DX 07/30/2013 TOBY PHD, ROSELINE Thakur V04.81 FLU SHOT 07/30/2013 OTBY PHD, ROSELINE Thakur V03.82 PPV23 (PNEUMOVAX) DX 07/30/2013 TOBY PHD, ROSELINE Thakur V04.81 FLU SHOT 07/30/2013 NOEMI WASHBURN APRN V03.82 PPV23 (PNEUMOVAX) DX 07/30/2013 JOSE WASHBURN APRNA S V04.81 FLU SHOT 07/30/2013 TOBY PHD, ROSELINE Thakur V03.82 PPV23 (PNEUMOVAX) DX 07/30/2013 TOBY PHD, ROSELINE Thakur V04.81 FLU SHOT 07/30/2013 YONATHAN RIOS MD V03.82 PPV23 (PNEUMOVAX) DX 07/30/2013 YONATHAN RIOS MD V04.81 FLU SHOT 07/30/2013 NOEIM WASHBURN APRN S V03.82 PPV23 (PNEUMOVAX) DX 07/30/2013 JOSE WASHBURN APRNA S V04.81 FLU SHOT 07/30/2013 JOSE WASHBURN APRNA S V03.82 PPV23 (PNEUMOVAX) DX 07/30/2013 JOSE WASHBURN APRNA S V04.81 FLU SHOT 07/30/2013 GABBIE MAYORGA APRN V03.82 PPV23 (PNEUMOVAX) DX 07/30/2013 GABBIE MAYORGA APRN V04.81 FLU SHOT 07/30/2013 TOBY PHD, ROSELINE Thakur V03.82 PPV23 (PNEUMOVAX) DX 07/30/2013 TOBY PHD, ROSELINE Thakur V04.81 FLU SHOT 07/30/2013 TOBY PHD, ROSELINE Thakur V03.82 PPV23 (PNEUMOVAX) DX 07/30/2013 TOBY JANE, ROSELINE Thakur V04.81 FLU SHOT 07/30/2013 YONATHAN RIOS MD V03.82 PPV23 (PNEUMOVAX) DX 07/30/2013 YONATHAN RIOS MD V04.81 FLU SHOT 07/30/2013 TOBY JANE, ROSELINE Thakur V03.82 PPV23 (PNEUMOVAX) DX 07/30/2013 TOBY JANE, ROSELINE Thakur V04.81 FLU SHOT 07/30/2013 TIERRA LOZADA GABBIE HOMAR V03.82 PPV23 (PNEUMOVAX) DX 07/30/2013 TIERRA LOZADA GABBIE HOMAR V04.81 FLU SHOT 07/30/2013 SCHULZ DO, TREVOR K V03.82 PPV23 (PNEUMOVAX) DX 07/30/2013 SCHULZ DO, TREVOR K V04.81 FLU SHOT 07/30/2013 NOEMI WASHBURN APRN S V03.82 PPV23 (PNEUMOVAX) DX 07/30/2013 NOEMI WASHBURN APRN S V04.81 FLU SHOT 07/30/2013 TOBY JANE, ROSELINE Thakur V03.82 PPV23 (PNEUMOVAX) DX 07/30/2013 TOBY JANE, ROSELINE Thakur V04.81 FLU SHOT 07/30/2013 TOBY JANE, ROSELINE Thakur V03.82 PPV23 (PNEUMOVAX) DX 07/30/2013 TOBY JANE, ROSELINE Thakur V04.81 FLU SHOT 07/30/2013 GABBIE MAYORGA APRN V03.82 PPV23 (PNEUMOVAX) DX 07/30/2013 GABBIE MAYORGA APRN V04.81 FLU SHOT 07/30/2013 TOBY JANE, ROSELINE Thakur V03.82 PPV23 (PNEUMOVAX) DX 07/30/2013 TOBY JANE, ROSELINE Thakur V04.81 FLU SHOT 07/30/2013 YONATHAN RIOS MD V03.82 PPV23 (PNEUMOVAX) DX 07/30/2013 YONATHAN RIOS MD V04.81 FLU SHOT 07/30/2013 LESLY WEAVER APRN V03.82 PPV23 (PNEUMOVAX) DX 07/30/2013 LESLY WEAVER APRN V04.81 FLU SHOT 07/30/2013 TOBY PHD, ROSELINE Thakur V03.82 PPV23 (PNEUMOVAX) DX 07/30/2013 TOBY PHD, ROSELINE Thakur V04.81 FLU SHOT 07/30/2013 JENNIFER ARROYON, ARIANE R V03.82 PPV23 (PNEUMOVAX) DX 07/30/2013 JENNIFER LOZADA, ARIANE R V04.81 FLU SHOT 07/30/2013 TOBY PHD, ROSELINE Thakur V03.82 PPV23 (PNEUMOVAX) DX 07/30/2013 TOBY PHD, ROSELINE Thakur V04.81 FLU SHOT 07/30/2013 SP CARR APRN V03.82 PPV23 (PNEUMOVAX) DX 07/30/2013 LILLY LOZADA, SP [place] V04.81 FLU SHOT 07/30/2013 SCHULZ DO, TREVOR K V03.82 PPV23 (PNEUMOVAX) DX 07/30/2013 SCHULZ DO, TREVOR K V04.81 FLU SHOT 07/30/2013 TOBY PHD, ROSELINE Thakur V03.82 PPV23 (PNEUMOVAX) DX 07/30/2013 TOBY PHD, ROSELINE Thakur V04.81 FLU SHOT 07/30/2013 YONATHAN RIOS MD V03.82 PPV23 (PNEUMOVAX) DX 07/30/2013 YONATHAN RIOS MD V04.81 FLU SHOT 07/30/2013 TOBY PHD, ROSELINE Thakur V03.82 PPV23 (PNEUMOVAX) DX 07/30/2013 TOBY JANE, ROSELINE Thakur V04.81 FLU SHOT 07/30/2013 NADINE HARP MD V03.82 PPV23 (PNEUMOVAX) DX 07/30/2013 NADINE HARP MD V04.81 FLU SHOT 07/30/2013 NOEMI WASHBURN APRN V03.82 PPV23 (PNEUMOVAX) DX 07/30/2013 NOEMI WASHBURN APRN V04.81 FLU SHOT 07/30/2013 TOBY PHD, ROSELINE Thakur V03.82 PPV23 (PNEUMOVAX) DX 07/30/2013 TOBY JANE, ROSELINE Thakur V04.81 FLU SHOT 07/30/2013 NOEMI WASHBURN APRN V03.82 PPV23 (PNEUMOVAX) DX 07/30/2013 NOEMI WASHBURN APRN S V04.81 FLU SHOT 07/30/2013 YONATHAN RIOS MD V03.82 PPV23 (PNEUMOVAX) DX 07/30/2013 BLANCA ROBINS, YONATHAN V04.81 FLU SHOT 07/30/2013 JOSE WASHBURN APRNA S V03.82 PPV23 (PNEUMOVAX) DX 07/30/2013 DIPTI WASHBURN APRNNDA S V04.81 FLU SHOT 07/30/2013 JOSE WASHBURN APRNA S V03.82 PPV23 (PNEUMOVAX) DX 07/30/2013 DIPTI WASHBURN APRNNDA S V04.81 FLU SHOT 07/30/2013 TOBY PHD, ROSELINE Thakur V03.82 PPV23 (PNEUMOVAX) DX 07/30/2013 TOBY PHD, ROSELINE Thakur V04.81 FLU SHOT 07/30/2013 ALYSE LIMA M V03.82 PPV23 (PNEUMOVAX) DX 07/30/2013 LEXI LEWIS, ALYSE M V04.81 FLU SHOT 07/30/2013 LEXI LEWIS, ALYSE M V03.82 PPV23 (PNEUMOVAX) DX 07/30/2013 LEXI LEWIS, ALYSE M V04.81 FLU SHOT 07/30/2013 JOSE WASHBURN APRNA S V03.82 PPV23 (PNEUMOVAX) DX 07/30/2013 DIPTI WASHBURN APRNNDA S V04.81 FLU SHOT 07/30/2013 DIPTI WASHBURN APRNNDA S V03.82 PPV23 (PNEUMOVAX) DX 07/30/2013 DIPTI WASHBURN APRNNDA S V04.81 FLU SHOT 07/30/2013 TOBY PHD, ROSELINE Thakur V03.82 PPV23 (PNEUMOVAX) DX 07/30/2013 TOBY PHD, ROSELINE Thakur V04.81 FLU SHOT 07/30/2013 JOSE WASHBURN APRNA S V03.82 PPV23 (PNEUMOVAX) DX 07/30/2013 DIPTI WASHBURN APRNNDA S V04.81 FLU SHOT 08/02/2013 BLANCA ROBINS, YONATHAN 276.7 HYPERKALEMIA 08/02/2013 YONATHAN RIOS MD 276.7 HYPERKALEMIA 08/02/2013 TOBY PHD, ROSELINE Thakur 276.7 HYPERKALEMIA 08/02/2013 TOBY PHD, ROSELINE Thakur 276.7 HYPERKALEMIA 08/02/2013 NOEMI WASHBURN APRN S 276.7 HYPERKALEMIA 08/02/2013 TOBY JANE, ROSELINE Thakur 276.7 HYPERKALEMIA 08/02/2013 YONATHAN RIOS MD 276.7 HYPERKALEMIA 08/02/2013 NOEMI WASHBURN APRN S 276.7 HYPERKALEMIA 08/02/2013 JOSE WASHBURN APRNA S 276.7 HYPERKALEMIA 08/02/2013 TIERRA LOZADA GABBIE HOMAR 276.7 HYPERKALEMIA 08/02/2013 TOBY JANE, ROSELINE Thakur 276.7 HYPERKALEMIA 08/02/2013 TOBY JANE, ROSELINE Thakur 276.7 HYPERKALEMIA 08/02/2013 YONATHAN RIOS MD 276.7 HYPERKALEMIA 08/02/2013 TOBY JANE, ROSELINE Thakur 276.7 HYPERKALEMIA 08/02/2013 GABBIE MAYORGA APRN 276.7 HYPERKALEMIA 08/02/2013 TREVOR SCHULZ DO K 276.7 HYPERKALEMIA 08/02/2013 NOEMI WASHBURN APRN S 276.7 HYPERKALEMIA 08/02/2013 TOBY JANE, ROSELINE Thakur 276.7 HYPERKALEMIA 08/02/2013 TOBY JANE, ROSELINE Thakur 276.7 HYPERKALEMIA 08/02/2013 GABBIE MAYORGA APRN 276.7 HYPERKALEMIA 08/02/2013 TOBY JANE, ROSELINE Thakur 276.7 HYPERKALEMIA 08/02/2013 YONATHAN RIOS MD 276.7 HYPERKALEMIA 08/02/2013 LESLY WEAVER APRN R 276.7 HYPERKALEMIA 08/02/2013 TOBY JANE, ROSELINE Thakur 276.7 HYPERKALEMIA 08/02/2013 JENNIFER LOZADA ARIANE R 276.7 HYPERKALEMIA 08/02/2013 TOBY JANE, ROSELINE Thakur 276.7 HYPERKALEMIA 08/02/2013 SP CARR APRN 276.7 HYPERKALEMIA 08/02/2013 TREVOR SCHULZ DO K 276.7 HYPERKALEMIA 08/02/2013 TOBY JANE, ROSELINE Thakur 276.7 HYPERKALEMIA 08/02/2013 YONATHAN RIOS MD 276.7 HYPERKALEMIA 08/02/2013 TOBY JANE, ROSELINE Thakur 276.7 HYPERKALEMIA 08/02/2013 LOYD ROBINS, NADINE N 276.7 HYPERKALEMIA 08/02/2013 WU LOZADA NOEMI S 276.7 HYPERKALEMIA 08/02/2013 TOBY JANE, ROSELINE Thakur 276.7 HYPERKALEMIA 08/02/2013 WU LOZADA, NOEMI S 276.7 HYPERKALEMIA 08/02/2013 YONATHAN RIOS MD 276.7 HYPERKALEMIA 08/02/2013 WU LOZADA, NOEMI S 276.7 HYPERKALEMIA 08/02/2013 WU LOZADA, NOEMI S 276.7 HYPERKALEMIA 08/02/2013 TOBY JANE, ROSELINE Thakur 276.7 HYPERKALEMIA 08/02/2013 LEXI FRENCH TEACHER, ALYSE M 276.7 HYPERKALEMIA 08/02/2013 LEXI FRENCH TEACHER, ALYSE M 276.7 HYPERKALEMIA 08/02/2013 WU LOZADA, NOEMI S 276.7 HYPERKALEMIA 08/02/2013 WU LOZADA, NOEMI S 276.7 HYPERKALEMIA 08/02/2013 TOBY PHD, ROSELINE Thakur 276.7 HYPERKALEMIA 08/02/2013 WU LOZADA, NOEMI S 276.7 HYPERKALEMIA 11/02/2013 JOSIAH ROBINS, NELLY R Ot 786.05 SHORTNESS OF BREATH 11/02/2013 JOSIAH ROBINS, NELLY R Ot 786.09 RESPIRATORY ABNORM NEC 11/14/2013 TOBY JANE, ROSELINE Thakur 310.1 MEMORY/COGNITIVE CHANGES 11/14/2013 TOBY JANE, ROSELINE Thakur 785.1 PALPITATIONS 11/14/2013 ROSELINE LUIS PHD 786.09 DYSPNEA 11/14/2013 YONATHAN RIOS MD 310.1 MEMORY/COGNITIVE CHANGES 11/14/2013 YONATHAN RIOS MD 785.1 PALPITATIONS 11/14/2013 YONATHAN RIOS MD 786.09 DYSPNEA 11/14/2013 NOEMI WASHBURN APRN S 310.1 MEMORY/COGNITIVE CHANGES 11/14/2013 JOSE WASHBURN APRNA S 785.1 PALPITATIONS 11/14/2013 JOSE WASHBURN APRNA S 786.09 DYSPNEA 11/14/2013 DIPTI WASHBURN APRNNDA S 310.1 MEMORY/COGNITIVE CHANGES 11/14/2013 DIPTI WASHBURN APRNNDA S 785.1 PALPITATIONS 11/14/2013 WU CHAIR, NOEMI S 786.09 DYSPNEA 11/14/2013 TIERRA ARROYOBautista GABBIE GRAF 310.1 MEMORY/COGNITIVE CHANGES 11/14/2013 TIERRA ARROYOBautista GABBIE GRAF 785.1 PALPITATIONS 11/14/2013 TIERRA ARROYOBautista GABBIE GRAF 786.09 DYSPNEA 11/14/2013 ROSELINE LUIS PHD 310.1 MEMORY/COGNITIVE CHANGES 11/14/2013 ROSELINE LUIS PHD 785.1 PALPITATIONS 11/14/2013 ROSELINE LUIS PHD 786.09 DYSPNEA 11/14/2013 ROSELINE LUIS PHD 310.1 MEMORY/COGNITIVE CHANGES 11/14/2013 ROSELINE LUIS PHD 785.1 PALPITATIONS 11/14/2013 ROSELINE LUIS PHD 786.09 DYSPNEA 11/14/2013 YONATHAN RIOS MD 310.1 MEMORY/COGNITIVE CHANGES 11/14/2013 YONATHAN RIOS MD 785.1 PALPITATIONS 11/14/2013 YONATHAN RIOS MD 786.09 DYSPNEA 11/14/2013 TOBY JANE, ROSELINE Thakur 310.1 MEMORY/COGNITIVE CHANGES 11/14/2013 ROSELINE LUIS PHD 785.1 PALPITATIONS 11/14/2013 ROSELINE LUIS PHD 786.09 DYSPNEA 11/14/2013 TIERRA ARROYOBautista GABBIE GRAF 310.1 MEMORY/COGNITIVE CHANGES 11/14/2013 MAYORGA NEVILLE GABBIE GRAF 785.1 PALPITATIONS 11/14/2013 TIERRA ARROYOBautista GABBIE GRAF 786.09 DYSPNEA 11/14/2013 SCHULZ DO, TREVOR K 310.1 MEMORY/COGNITIVE CHANGES 11/14/2013 SCHULZ DO, TREVOR K 785.1 PALPITATIONS 11/14/2013 SCHULZ DO, TREVOR K 786.09 DYSPNEA 11/14/2013 WU LOZADA NOEMI S 310.1 MEMORY/COGNITIVE CHANGES 11/14/2013 WU LOZADA NOEMI S 785.1 PALPITATIONS 11/14/2013 DIPTI WASHBURN APRNNDA S 786.09 DYSPNEA 11/14/2013 ROSELINE LUIS PHD 310.1 MEMORY/COGNITIVE CHANGES 11/14/2013 ROSELINE LUSI PHD 785.1 PALPITATIONS 11/14/2013 ROSELINE LUIS PHD 786.09 DYSPNEA 11/14/2013 ROSELINE LUIS PHD 310.1 MEMORY/COGNITIVE CHANGES 11/14/2013 ROSELINE LUIS PHD 785.1 PALPITATIONS 11/14/2013 ROSELINE LUIS PHD 786.09 DYSPNEA 11/14/2013 MAYORGAHAYLEE LOZADA, GABBIE GRAF 310.1 MEMORY/COGNITIVE CHANGES 11/14/2013 MAYORGAHAYLEE LOZADA, GABBIE GRAF 785.1 PALPITATIONS 11/14/2013 MAYORGAHAYLEE LOZADA, GABBIE GRAF 786.09 DYSPNEA 11/14/2013 ROSELINE LUIS PHD 310.1 MEMORY/COGNITIVE CHANGES 11/14/2013 ROSELINE LUIS PHD 785.1 PALPITATIONS 11/14/2013 ROSELINE LUIS PHD 786.09 DYSPNEA 11/14/2013 YONATHAN RIOS MD 310.1 MEMORY/COGNITIVE CHANGES 11/14/2013 YONATHAN RIOS MD 785.1 PALPITATIONS 11/14/2013 YONATHAN RIOS MD 786.09 DYSPNEA 11/14/2013 OWEN LOZADA LESLY R 310.1 MEMORY/COGNITIVE CHANGES 11/14/2013 OWEN LOZADA LESLY R 785.1 PALPITATIONS 11/14/2013 OWEN LOZADA LESLY R 786.09 DYSPNEA 11/14/2013 ROSELINE LUIS PHD 310.1 MEMORY/COGNITIVE CHANGES 11/14/2013 ROSELINE LUIS PHD 785.1 PALPITATIONS 11/14/2013 ROSELINE LUIS PHD 786.09 DYSPNEA 11/14/2013 JENNIFER LOZADA ARIANE R 310.1 MEMORY/COGNITIVE CHANGES 11/14/2013 JENNIFER LOZADA, ARIANE R 785.1 PALPITATIONS 11/14/2013 JENNIFER LOZADA, ARIANE R 786.09 DYSPNEA 11/14/2013 ROSELINE LUIS PHD 310.1 MEMORY/COGNITIVE CHANGES 11/14/2013 ROSELINE LUIS PHD 785.1 PALPITATIONS 11/14/2013 ROSELINE LUIS PHD 786.09 DYSPNEA 11/14/2013 SP CARR APRN 310.1 MEMORY/COGNITIVE CHANGES 11/14/2013 SP CARR APRN 785.1 PALPITATIONS 11/14/2013 SP CARR APRN 786.09 DYSPNEA 11/14/2013 JAZZ DO, TREVOR K 310.1 MEMORY/COGNITIVE CHANGES 11/14/2013 JAZZ DO, TREVOR K 785.1 PALPITATIONS 11/14/2013 SCHULZ DO, TREVOR K 786.09 DYSPNEA 11/14/2013 TOBY JANE, ROSELINE Thakur 310.1 MEMORY/COGNITIVE CHANGES 11/14/2013 TOBY JANE, ROSELINE Thakur 785.1 PALPITATIONS 11/14/2013 TOBY JANE, ROSELINE Thakur 786.09 DYSPNEA 11/14/2013 YONATHAN RIOS MD 310.1 MEMORY/COGNITIVE CHANGES 11/14/2013 YONATHAN RIOS MD 785.1 PALPITATIONS 11/14/2013 YONATHAN RIOS MD 786.09 DYSPNEA 11/14/2013 TOBY JANE, ROSELINE hTakur 310.1 MEMORY/COGNITIVE CHANGES 11/14/2013 TOBY JANE, ROSELINE Thakur 785.1 PALPITATIONS 11/14/2013 TOBY JANE, ROSELINE Thakur 786.09 DYSPNEA 11/14/2013 NADINE HARP MD 310.1 MEMORY/COGNITIVE CHANGES 11/14/2013 NADINE HARP MD 785.1 PALPITATIONS 11/14/2013 NADINE HARP MD 786.09 DYSPNEA 11/14/2013 DIPTI WASHBURN APRNNDA S 310.1 MEMORY/COGNITIVE CHANGES 11/14/2013 DIPTI WASHBURN APRNNDA S 785.1 PALPITATIONS 11/14/2013 DIPTI WASHBURN APRNNDA S 786.09 DYSPNEA 11/14/2013 TOBY JANE, ROSELINE Thakur 310.1 MEMORY/COGNITIVE CHANGES 11/14/2013 TOBY JANE, ROSELINE Thakur 785.1 PALPITATIONS 11/14/2013 TOBY JANE, ROSELINE Thakur 786.09 DYSPNEA 11/14/2013 DIPTI WASHBURN APRNNDA S 310.1 MEMORY/COGNITIVE CHANGES 11/14/2013 DIPTI WASHBURN APRNNDA S 785.1 PALPITATIONS 11/14/2013 DIPTI WASHBURN APRNNDA S 786.09 DYSPNEA 11/14/2013 YONATHAN RIOS MD 310.1 MEMORY/COGNITIVE CHANGES 11/14/2013 YONATHAN RIOS MD 785.1 PALPITATIONS 11/14/2013 YONATHAN RIOS MD 786.09 DYSPNEA 11/14/2013 WU CHAIR, NOEMI S 310.1 MEMORY/COGNITIVE CHANGES 11/14/2013 WU CHAIR, NOEMI S 785.1 PALPITATIONS 11/14/2013 WU CHAIR, NOEMI S 786.09 DYSPNEA 11/14/2013 WU CHAIR, NOEMI S 310.1 MEMORY/COGNITIVE CHANGES 11/14/2013 WU CHAIR, NOEMI S 785.1 PALPITATIONS 11/14/2013 WU CHAIR, NOEMI S 786.09 DYSPNEA 11/14/2013 TOBY JANE, ROSELINE Thakur 310.1 MEMORY/COGNITIVE CHANGES 11/14/2013 TOBY JANE, ROSELINE Thakur 785.1 PALPITATIONS 11/14/2013 TOBY PHD, ROSELINE Thakur 786.09 DYSPNEA 11/14/2013 LEXI FRENCH TEACHER, ALYSE M 310.1 MEMORY/COGNITIVE CHANGES 11/14/2013 LEXI FRENCH TEACHER, ALYSE M 785.1 PALPITATIONS 11/14/2013 LEXI FRENCH TEACHER, ALYSE M 786.09 DYSPNEA 11/14/2013 LEXI FRENCH TEACHER, ALYSE M 310.1 MEMORY/COGNITIVE CHANGES 11/14/2013 LEXI FRENCH TEACHER, ALYSE M 785.1 PALPITATIONS 11/14/2013 LEXI FRENCH TEACHER, ALYSE M 786.09 DYSPNEA 11/14/2013 WU CHAIR, NOEMI S 310.1 MEMORY/COGNITIVE CHANGES 11/14/2013 WU CHAIR, NOEMI S 785.1 PALPITATIONS 11/14/2013 WU CHAIR, NOEMI S 786.09 DYSPNEA 11/14/2013 WU CHAIR, NOEMI S 310.1 MEMORY/COGNITIVE CHANGES 11/14/2013 WU CHAIR, NOEMI S 785.1 PALPITATIONS 11/14/2013 WU CHAIR, NOEMI S 786.09 DYSPNEA 11/14/2013 TOBY PHD, ROSELINE Thakur 310.1 MEMORY/COGNITIVE CHANGES 11/14/2013 TOBY PHD, ROSELINE Thakur 785.1 PALPITATIONS 11/14/2013 TOBY PHD, ROSELINE Thakur 786.09 DYSPNEA 11/14/2013 WU CHAIR, NOEMI S 310.1 MEMORY/COGNITIVE CHANGES 11/14/2013 WU CHAIR, NOEMI S 785.1 PALPITATIONS 11/14/2013 WU CHAIR, NOEMI S 786.09 DYSPNEA 11/21/2013 BLANCA ROBINS, YONATHAN 729.5 PAIN- HAND 11/21/2013 NOEMI WASHBURN APRN 729.5 PAIN- HAND 11/21/2013 NOEMI WASHBURN APRN S 729.5 PAIN- HAND 11/21/2013 TIERRA LOZADA, GABBIE HOMAR 729.5 PAIN- HAND 11/21/2013 TOBY JANE, ROSELINE Thakur 729.5 PAIN- HAND 11/21/2013 TOBY JANE, ROSELINE Thakur 729.5 PAIN- HAND 11/21/2013 YONATHAN RIOS MD 729.5 PAIN- HAND 11/21/2013 TOBY JANE, ROSELINE Thakur 729.5 PAIN- HAND 11/21/2013 GABBIE MAYORGA APRN 729.5 PAIN- HAND 11/21/2013 TREVOR SCHULZ DO 729.5 PAIN- HAND 11/21/2013 NOEMI WASHBURN APRN 729.5 PAIN- HAND 11/21/2013 TOBY JANE, ROSELINE Thakur 729.5 PAIN- HAND 11/21/2013 TOBY JANE, ROSELINE Thakur 729.5 PAIN- HAND 11/21/2013 TIERRA LOZADA GABBIE HOMAR 729.5 PAIN- HAND 11/21/2013 TOBY JANE, ROSELINE Thakur 729.5 PAIN- HAND 11/21/2013 YONATHAN RIOS MD 729.5 PAIN- HAND 11/21/2013 OWEN LOZADA, LESLY R 729.5 PAIN- HAND 11/21/2013 TOBY JANE, ROSELINE Thakur 729.5 PAIN- HAND 11/21/2013 ARIANE RODRIGUEZ APRN R 729.5 PAIN- HAND 11/21/2013 TOBY JANE, ROSELINE Thakur 729.5 PAIN- HAND 11/21/2013 SP CARR APRN 729.5 PAIN- HAND 11/21/2013 TREVOR SCHULZ DO 729.5 PAIN- HAND 11/21/2013 TOBY JANE, ROSELINE Thakur 729.5 PAIN- HAND 11/21/2013 YONATHAN RIOS MD 729.5 PAIN- HAND 11/21/2013 TOBY JANE, ROSELINE Thakur 729.5 PAIN- HAND 11/21/2013 NADINE HARP MD 729.5 PAIN- HAND 11/21/2013 WU LOZADA, NOEMI S 729.5 PAIN- HAND 11/21/2013 TOBY JANE, ROSELINE Thakur 729.5 PAIN- HAND 11/21/2013 WU LOZADA, NOEMI S 729.5 PAIN- HAND 11/21/2013 YONATHAN RIOS MD 729.5 PAIN- HAND 11/21/2013 WU LOZADA, NOEMI S 729.5 PAIN- HAND 11/21/2013 WU LOZADA, NOEMI S 729.5 PAIN- HAND 11/21/2013 TOBY JANE, ROSELINE Thakur 729.5 PAIN- HAND 11/21/2013 ALYSE LIMA M 729.5 PAIN- HAND 11/21/2013 LEXI FRENCH TEACHER, ALYSE M 729.5 PAIN- HAND 11/21/2013 WU LOZADA, NOEMI S 729.5 PAIN- HAND 11/21/2013 WU LOZADA, NOEMI S 729.5 PAIN- HAND 11/21/2013 TOBY JANE, ROSELINE Thakur 729.5 PAIN- HAND 11/21/2013 NOEMI WASHBURN APRN S 729.5 PAIN- HAND 02/24/2014 TREVOR SCHULZ DO V81.1 HYPERTENSION SCREENING 02/24/2014 NOEMI WASHBURN APRN S V81.1 HYPERTENSION SCREENING 02/24/2014 ROSELINE LUIS PHD V81.1 HYPERTENSION SCREENING 02/24/2014 ROSELINE LUIS PHD V81.1 HYPERTENSION SCREENING 02/24/2014 GABBIE MAYORGA APRN V81.1 HYPERTENSION SCREENING 02/24/2014 ROSELINE LUIS PHD V81.1 HYPERTENSION SCREENING 02/24/2014 YONATHAN RIOS MD V81.1 HYPERTENSION SCREENING 02/24/2014 LESLY WEAVER APRN V81.1 HYPERTENSION SCREENING 02/24/2014 ROSELINE LUIS PHD V81.1 HYPERTENSION SCREENING 02/24/2014 ARIANE RODRIGUEZ APRN V81.1 HYPERTENSION SCREENING 02/24/2014 ROSELINE LUIS PHD V81.1 HYPERTENSION SCREENING 02/24/2014 SP CARR APRN V81.1 HYPERTENSION SCREENING 02/24/2014 TREVOR SCHULZ DO V81.1 HYPERTENSION SCREENING 02/24/2014 ROSELINE LUIS PHD D V81.1 HYPERTENSION SCREENING 02/24/2014 BLANCA ROBINS, YONATHAN V81.1 HYPERTENSION SCREENING 02/24/2014 TOBY JANE, ROSELINE Thakur V81.1 HYPERTENSION SCREENING 02/24/2014 LOYD ROBINS, NADINE Baum V81.1 HYPERTENSION SCREENING 02/24/2014 WU LOZADA, NOEMI S V81.1 HYPERTENSION SCREENING 02/24/2014 TOBY JANE, ROSELINE Thakur V81.1 HYPERTENSION SCREENING 02/24/2014 WU LOZADA, NOEMI S V81.1 HYPERTENSION SCREENING 02/24/2014 BLANCA ROBINS, YONATHAN V81.1 HYPERTENSION SCREENING 02/24/2014 WU LOZADA, NOEMI S V81.1 HYPERTENSION SCREENING 02/24/2014 DIPTI WASHBURN APRNNDA S V81.1 HYPERTENSION SCREENING 02/24/2014 TOBY JANE, ROSELINE Thakur V81.1 HYPERTENSION SCREENING 02/24/2014 LEXI FRENCH TEACHER, ALYSE M V81.1 HYPERTENSION SCREENING 02/24/2014 LEXI FRENCH TEACHER, ALYSE M V81.1 HYPERTENSION SCREENING 02/24/2014 WU LOZADA, NOEMI S V81.1 HYPERTENSION SCREENING 02/24/2014 WU LOZADA, NOEMI S V81.1 HYPERTENSION SCREENING 02/24/2014 TOBY JANE, ROSELINE Thakur V81.1 HYPERTENSION SCREENING 02/24/2014 WU LOZADA, NOEMI S V81.1 HYPERTENSION SCREENING 03/04/2014 WU LOZADA NOEMI S 401.1 BENIGN ESSENTIAL HYPERTENSION 03/04/2014 DIPTI WASHBURN APRNNDA S 780.79 OTHER MALAISE AND FATIGUE 03/04/2014 ROSELINE LUIS PHD 401.1 BENIGN ESSENTIAL HYPERTENSION 03/04/2014 ROSELINE LUIS PHD 780.79 OTHER MALAISE AND FATIGUE 03/04/2014 ROSELINE LUIS PHD 401.1 BENIGN ESSENTIAL HYPERTENSION 03/04/2014 ROSELINE LUIS PHD 780.79 OTHER MALAISE AND FATIGUE 03/04/2014 GABBIE MAYORGA APRN 401.1 BENIGN ESSENTIAL HYPERTENSION 03/04/2014 GABBIE MAYORGA APRN 780.79 OTHER MALAISE AND FATIGUE 03/04/2014 ROSELINE LUIS PHD 401.1 BENIGN ESSENTIAL HYPERTENSION 03/04/2014 ROSELINE LUIS PHD 780.79 OTHER MALAISE AND FATIGUE 03/04/2014 YONATHAN RIOS MD 401.1 BENIGN ESSENTIAL HYPERTENSION 03/04/2014 YONATHAN RIOS MD 780.79 OTHER MALAISE AND FATIGUE 03/04/2014 OWEN LOZADA, LESLY R 401.1 BENIGN ESSENTIAL HYPERTENSION 03/04/2014 OWEN LOZADA, LESLY R 780.79 OTHER MALAISE AND FATIGUE 03/04/2014 ROSELINE LUIS PHD 401.1 BENIGN ESSENTIAL HYPERTENSION 03/04/2014 ROSELINE LUIS PHD 780.79 OTHER MALAISE AND FATIGUE 03/04/2014 JENNIFER LOZADA, ARIANE R 401.1 BENIGN ESSENTIAL HYPERTENSION 03/04/2014 JENNIFER LOZADA, ARIANE R 780.79 OTHER MALAISE AND FATIGUE 03/04/2014 ROSELINE LUIS PHD 401.1 BENIGN ESSENTIAL HYPERTENSION 03/04/2014 ROSELINE LUIS PHD 780.79 OTHER MALAISE AND FATIGUE 03/04/2014 SP CARR APRN 401.1 BENIGN ESSENTIAL HYPERTENSION 03/04/2014 SP CARR APRN 780.79 OTHER MALAISE AND FATIGUE 03/04/2014 SCHULZ DO, TREVOR K 401.1 BENIGN ESSENTIAL HYPERTENSION 03/04/2014 SCHULZ DO, TREVOR K 780.79 OTHER MALAISE AND FATIGUE 03/04/2014 ROSELINE LUIS PHD 401.1 BENIGN ESSENTIAL HYPERTENSION 03/04/2014 ROSELINE LUIS PHD 780.79 OTHER MALAISE AND FATIGUE 03/04/2014 YONATHAN RIOS MD 401.1 BENIGN ESSENTIAL HYPERTENSION 03/04/2014 YONATHAN RIOS MD 780.79 OTHER MALAISE AND FATIGUE 03/04/2014 ROSELINE LUIS PHD 401.1 BENIGN ESSENTIAL HYPERTENSION 03/04/2014 ROSELINE LUIS PHD 780.79 OTHER MALAISE AND FATIGUE 03/04/2014 NADINE HARP MD 401.1 BENIGN ESSENTIAL HYPERTENSION 03/04/2014 NADINE HARP MD 780.79 OTHER MALAISE AND FATIGUE 03/04/2014 NOEMI WASHBURN APRN S 401.1 BENIGN ESSENTIAL HYPERTENSION 03/04/2014 NOEMI WASHBURN APRN S 780.79 OTHER MALAISE AND FATIGUE 03/04/2014 ROSELINE LUIS PHD 401.1 BENIGN ESSENTIAL HYPERTENSION 03/04/2014 ROSELINE LUIS PHD 780.79 OTHER MALAISE AND FATIGUE 03/04/2014 WU ARROYON, NOEMI S 401.1 BENIGN ESSENTIAL HYPERTENSION 03/04/2014 WU ARROYON, NOEMI S 780.79 OTHER MALAISE AND FATIGUE 03/04/2014 YONATHAN RIOS MD 401.1 BENIGN ESSENTIAL HYPERTENSION 03/04/2014 YONATHAN RIOS MD 780.79 OTHER MALAISE AND FATIGUE 03/04/2014 WU ARROYON, NOEMI S 401.1 BENIGN ESSENTIAL HYPERTENSION 03/04/2014 WU ARROYON, NOEMI S 780.79 OTHER MALAISE AND FATIGUE 03/04/2014 WU ARROYON, NOEMI S 401.1 BENIGN ESSENTIAL HYPERTENSION 03/04/2014 WU LOZADA, NOEMI S 780.79 OTHER MALAISE AND FATIGUE 03/04/2014 TOBY JANE, ROSELINE Thakur 401.1 BENIGN ESSENTIAL HYPERTENSION 03/04/2014 TOBY JANE, ROSELINE Thakur 780.79 OTHER MALAISE AND FATIGUE 03/04/2014 LEXI LEWIS, ALYSE M 401.1 BENIGN ESSENTIAL HYPERTENSION 03/04/2014 LEXI LEWIS, ALYSE M 780.79 OTHER MALAISE AND FATIGUE 03/04/2014 LEXI FRENCH TEACHER, ALYSE M 401.1 BENIGN ESSENTIAL HYPERTENSION 03/04/2014 LEXI LEWIS, ALYSE M 780.79 OTHER MALAISE AND FATIGUE 03/04/2014 WU ARROYON, NOEMI S 401.1 BENIGN ESSENTIAL HYPERTENSION 03/04/2014 WU ARROYON, NOEMI S 780.79 OTHER MALAISE AND FATIGUE 03/04/2014 WU ARROYON, NOEMI S 401.1 BENIGN ESSENTIAL HYPERTENSION 03/04/2014 WU ARROYON, NOEMI S 780.79 OTHER MALAISE AND FATIGUE 03/04/2014 TOBY PHD, ROSELINE Thakur 401.1 BENIGN ESSENTIAL HYPERTENSION 03/04/2014 TOBY JANE, ROSELINE Thakur 780.79 OTHER MALAISE AND FATIGUE 03/04/2014 WU ARROYON, NOEMI S 401.1 BENIGN ESSENTIAL HYPERTENSION 03/04/2014 WU LOZADA, NOEMI S 780.79 OTHER MALAISE AND FATIGUE 04/22/2014 YONATHAN RIOS MD 302.72 ERECTILE DISORDER 04/22/2014 WEAVER CHAIR, LESLY R 302.72 ERECTILE DISORDER 04/22/2014 TOBY JANE, ROSELINE Thakur 302.72 ERECTILE DISORDER 04/22/2014 ARIANE RODRIGUEZ APRN R 302.72 ERECTILE DISORDER 04/22/2014 TOBY JANE, ROSELINE Thakur 302.72 ERECTILE DISORDER 04/22/2014 SP CARR APRN 302.72 ERECTILE DISORDER 04/22/2014 SCHULZ TREVOR STROUD 302.72 ERECTILE DISORDER 04/22/2014 TOBY JANE, ROSELINE Thakur 302.72 ERECTILE DISORDER 04/22/2014 YONATHAN RIOS MD 302.72 ERECTILE DISORDER 04/22/2014 TOBY JANE, ROSELINE Thakur 302.72 ERECTILE DISORDER 04/22/2014 LOYD ROBINS, NADINE Baum 302.72 ERECTILE DISORDER 04/22/2014 DIPTI WASHBURN APRNNDA S 302.72 ERECTILE DISORDER 04/22/2014 TOBY JANE, ROSELINE Thakur 302.72 ERECTILE DISORDER 04/22/2014 DIPTI WASHBURN APRNNDA S 302.72 ERECTILE DISORDER 04/22/2014 YONATHAN RIOS MD 302.72 ERECTILE DISORDER 04/22/2014 DIPTI WASHBURN APRNNDA S 302.72 ERECTILE DISORDER 04/22/2014 DIPTI WASHBURN APRNNDA S 302.72 ERECTILE DISORDER 04/22/2014 TOBY JANE, ROSELINE Thakur 302.72 ERECTILE DISORDER 04/22/2014 ALYSE LIMA M 302.72 ERECTILE DISORDER 04/22/2014 LEXI LEWIS, ALYSE M 302.72 ERECTILE DISORDER 04/22/2014 WU LOZADA, NOEMI S 302.72 ERECTILE DISORDER 04/22/2014 DIPTI WASHBURN APRNNDA S 302.72 ERECTILE DISORDER 04/22/2014 TOBY JANE, ROSELINE Thakur 302.72 ERECTILE DISORDER 04/22/2014 DIPTI WASHBURN APRNNDA S 302.72 ERECTILE DISORDER 05/02/2014 KYLE WEAVER APRNIA R 462 ACUTE PHARYNGITIS 05/02/2014 KYLE WEAVER APRNIA R 786.2 COUGH 05/02/2014 TOBY JANE, ROSELINE Thakur 462 ACUTE PHARYNGITIS 05/02/2014 TOBY JANE, ROSELINE Thakur 786.2 COUGH 05/02/2014 ARIANE RODRIGUEZ APRN R 462 ACUTE PHARYNGITIS 05/02/2014 ISMAEL ORDRIGUEZ APRNINA R 786.2 COUGH 05/02/2014 TOBY JANE, ROSELINE Thakur 462 ACUTE PHARYNGITIS 05/02/2014 TOBY PHD, ROSELINE Thakur 786.2 COUGH 05/02/2014 SP CARR APRN 462 ACUTE PHARYNGITIS 05/02/2014 SP CARR APRN 786.2 COUGH 05/02/2014 SCHULZ DO, TREVOR K 462 ACUTE PHARYNGITIS 05/02/2014 CSHULZ DO, TREVOR K 786.2 COUGH 05/02/2014 TOBY PHD, ROSELINE Thakur 462 ACUTE PHARYNGITIS 05/02/2014 TOBY PHD, ROSELINE Thakur 786.2 COUGH 05/02/2014 YONATHAN RIOS MD 462 ACUTE PHARYNGITIS 05/02/2014 YONATHAN RIOS MD 786.2 COUGH 05/02/2014 TOBY PHD, ROSELINE Thakur 462 ACUTE PHARYNGITIS 05/02/2014 TOBY PHD, ROSELINE Thakur 786.2 COUGH 05/02/2014 LOYD ROBINS, NADINE Baum 462 ACUTE PHARYNGITIS 05/02/2014 NADINE HARP MD 786.2 COUGH 05/02/2014 WU CHAIR, NOEMI S 462 ACUTE PHARYNGITIS 05/02/2014 WU CHAIR, NOEMI S 786.2 COUGH 05/02/2014 TOBY JANE, ROSELINE Thakur 462 ACUTE PHARYNGITIS 05/02/2014 TOBY JANE, ROSELINE Thakur 786.2 COUGH 05/02/2014 WU CHAIR, NOEMI S 462 ACUTE PHARYNGITIS 05/02/2014 WU CHAIR, NOEMI S 786.2 COUGH 05/02/2014 YONATHAN RIOS MD 462 ACUTE PHARYNGITIS 05/02/2014 YONATHAN RIOS MD 786.2 COUGH 05/02/2014 WU CHAIR, NOEMI S 462 ACUTE PHARYNGITIS 05/02/2014 WU CHAIR, NOEMI S 786.2 COUGH 05/02/2014 WU CHAIR, NOEMI S 462 ACUTE PHARYNGITIS 05/02/2014 WU CHAIR, NOEMI S 786.2 COUGH 05/02/2014 TOBY JANE, ROSELINE Thakur 462 ACUTE PHARYNGITIS 05/02/2014 TOBY JANE, ROSELINE Thakur 786.2 COUGH 05/02/2014 ALYSE LIMA 462 ACUTE PHARYNGITIS 05/02/2014 ALYSE LIMA M 786.2 COUGH 05/02/2014 ALYSE LIMA M 462 ACUTE PHARYNGITIS 05/02/2014 ALYSE LIMA M 786.2 COUGH 05/02/2014 WU CHAIR, NOEMI S 462 ACUTE PHARYNGITIS 05/02/2014 WU CHAIR, NOEMI S 786.2 COUGH 05/02/2014 WU CHAIR, NOEMI S 462 ACUTE PHARYNGITIS 05/02/2014 WU CHAIR, NOEMI S 786.2 COUGH 05/02/2014 TOBY PHD, ROSELINE Thakur 462 ACUTE PHARYNGITIS 05/02/2014 TOBY PHD, ROSELINE Thakur 786.2 COUGH 05/02/2014 WU CHAIR, NOEMI S 462 ACUTE PHARYNGITIS 05/02/2014 WU CHAIR, NOEMI S 786.2 COUGH 05/16/2014 HIEN ROBINS FACC, ESPERANZA FACP CCDS Ot 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, EXTRANODAL SOLID ORGAN 05/16/2014 HIEN ROBINS FACC, ESPERANZA FACP CCDS Ot 250.00 DIAB AILEEN WO COMPL, TYPE II OR UNSPEC TY 05/16/2014 HIEN ROBINS FACC, ESPERANZA FACP CCDS Ot 272.4 HYPERLIPIDEMIA NEC/NOS 05/16/2014 HIEN ROBINS FACC, ESPERANZA FACP CCDS Ot 278.01 MORBID OBESITY 05/16/2014 HIEN ROBINS FACC, ESPERANZA FACP CCDS Ot 296.80 BIPOLAR DISORDER, UNSPECIFIED 05/16/2014 HIEN ROBINS FACC, ESPERANZA FACP CCDS Ot 346.00 MIGRAINE W AURA W/O INTRACT MGRN W/O STA 05/16/2014 HIEN ROBINS FACC, ESPERANZA FACP CCDS Ot 401.9 HYPERTENSION NOS 05/16/2014 HIEN ROBINS FACC, ESPERANZA FACP CCDS Ot 410.71 AC MYOCARDIAL INFARCT,SUBENDO INFARCT,IN 05/16/2014 HIEN ROBINS FACC, ESPERANZA FACP CCDS Ot 414.01 CORONARY ATHEROSCLEROSIS OF [place] CORON 05/16/2014 HIEN ROBINS FACC, ESPERANZA FACP CCDS Ot 496 CHR AIRWAY OBSTRUCT NEC 05/16/2014 HIEN ROBINS FACC, ALI FACP CCDS Ot 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 05/16/2014 HIEN ROBINS FACC, ESPERANZA [facility] Ot V58.67 LONG-TERM (CURRENT) USE OF INSULIN 05/16/2014 HIEN ROBINS FACC, ESPERANZA [facility] CCD[facility] Ot V58.69 OT MED,LT,CURRENT USE 05/16/2014 HIEN ROBINS FACC, ESPERANZA FACP CCDS Ot V85.43 BODY MASS INDEX 50.0-59.9, ADULT 06/04/2014 SP CARR APRN 601.0 ACUTE PROSTATITIS 06/04/2014 TREVOR SCHULZ DO 601.0 ACUTE PROSTATITIS 06/04/2014 TOBY PHD, ROSELINE Thakur 601.0 ACUTE PROSTATITIS 06/04/2014 YONATHAN RIOS MD 601.0 ACUTE PROSTATITIS 06/04/2014 TOBY PHD, ROSELINE Thakur 601.0 ACUTE PROSTATITIS 06/04/2014 LOYD ROBINS, NADINE Baum 601.0 ACUTE PROSTATITIS 06/04/2014 JOSE WASHBURN APRNA S 601.0 ACUTE PROSTATITIS 06/04/2014 TOBY PHD, ROSELINE Thakur 601.0 ACUTE PROSTATITIS 06/04/2014 DIPTI WASHBURN APRNNDA S 601.0 ACUTE PROSTATITIS 06/04/2014 YONATHAN RIOS MD 601.0 ACUTE PROSTATITIS 06/04/2014 WU LOZADA NOEMI S 601.0 ACUTE PROSTATITIS 06/04/2014 WU LOZADA NOEMI S 601.0 ACUTE PROSTATITIS 06/04/2014 TOBY PHD, ROSELINE Thakur 601.0 ACUTE PROSTATITIS 06/04/2014 ALYSE LIMA 601.0 ACUTE PROSTATITIS 06/04/2014 ALYSE LIMA M 601.0 ACUTE PROSTATITIS 06/04/2014 DIPTI WASHBURN APRNNDA S 601.0 ACUTE PROSTATITIS 06/04/2014 WU LOZADA NOEMI S 601.0 ACUTE PROSTATITIS 06/04/2014 TOBY PHD, ROSELINE Thakur 601.0 ACUTE PROSTATITIS 06/04/2014 WU LOZADA NOEMI S 601.0 ACUTE PROSTATITIS 06/24/2014 HIEN ROBINS FACC, ESPERANZA FACP CCDS Ot 250.00 DIAB AILEEN WO COMPL, TYPE II OR UNSPEC TY 06/24/2014 HIEN ALFARO, ALI FACP CCDS Ot 272.4 HYPERLIPIDEMIA NEC/NOS 06/24/2014 HIEN ROBINS FACC, ALI FACP CCDS Ot 278.01 MORBID OBESITY 06/24/2014 HIEN ROBINS FACC, ALI FACP CCDS Ot 401.9 HYPERTENSION NOS 06/24/2014 HIEN ROBINS FACC, ALI FACP CCDS Ot 412 OLD MYOCARDIAL INFARCT 06/24/2014 HIEN ROBINS FACC, ALI FACP CCDS Ot 414.01 CORONARY ATHEROSCLEROSIS OF [place] CORON 06/24/2014 HIEN ROBINS FACC, ALI FACP CCDS Ot 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 06/24/2014 HIEN ROBINS FACC, ESPERANZA FACP CCDS Ot V45.82 PERCUTANEOUS TRANSLUM CORON ANGIOPLASTY 06/24/2014 HIEN ROBINS FACC, ALI FACP CCDS Ot V58.69 OTH MED,LT,CURRENT USE 06/24/2014 HIEN ROBINS FACC, ALI FACP CCDS Ot V85.43 BODY MASS INDEX 50.0-59.9, ADULT 07/03/2014 YONATHAN RIOS MD Ot 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, EXTRANODAL SOLID ORGAN 07/03/2014 YONATHAN RIOS MD Ot 208.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 LEUKEMIA, W/O MENTION OF HAV 07/03/2014 YONATHAN RIOS MD Ot 250.00 DIAB AILEEN WO COMPL, TYPE II OR UNSPEC TY 07/03/2014 YONATHAN RIOS MD Ot 272.4 HYPERLIPIDEMIA NEC/NOS 07/03/2014 YONATHAN RIOS MD Ot 275.2 DIS MAGNESIUM METABOLISM 07/03/2014 YONATHAN RIOS MD Ot 276.51 DEHYDRATION 07/03/2014 YONATHAN RIOS MD Ot 276.8 HYPOPOTASSEMIA 07/03/2014 YONATHAN RIOS MD Ot 278.00 OBESITY, NOS 07/03/2014 YONATHAN RIOS MD Ot 296.80 BIPOLAR DISORDER, UNSPECIFIED 07/03/2014 YONATHAN RIOS MD Ot 301.9 PERSONALITY DISORDER NOS 07/03/2014 YONATHAN RIOS MD Ot 303.90 ALCOH DEP NEC/NOS-UNSPEC 07/03/2014 YONATHAN RIOS MD Ot 305.1 TOBACCO USE DISORDER 07/03/2014 YONATHAN RIOS MD Ot 312.30 IMPULSE CONTROL DIS NOS 07/03/2014 YONATHAN RIOS MD Ot 327.23 OBSTRUCTIVE SLEEP APNEA (ADULT) (PEDIATR 07/03/2014 YONATHAN RIOS MD Ot 345.90 EPILEPSY UNSPEC W/O MENTION INTRACTABLE 07/03/2014 YONATHAN RIOS MD Ot 346.90 MIGRAINE UNSPECIFIED W/O INTRACT MGRN W/ 07/03/2014 YONATHAN RIOS MD Ot 403.90 HYPTNSV CHR KID DIS, UNSPEC, W CHR KD ST 07/03/2014 YONATHAN RIOS MD Ot 414.01 CORONARY ATHEROSCLEROSIS OF [place] CORON 07/03/2014 YONATHAN RIOS MD Ot 496 CHR AIRWAY OBSTRUCT NEC 07/03/2014 YONATHAN RIOS MD Ot 530.81 ESOPHAGEAL REFLUX 07/03/2014 YONATHAN RIOS MD Ot 585.9 CHRONIC KIDNEY DISEASE, UNSPECIFIED 07/03/2014 YONATHAN RIOS MD Ot 593.9 RENAL URETERAL DIS NOS 07/03/2014 YONATHAN RIOS MD Ot 716.90 ARTHROPATHY NOS-UNSPEC 07/03/2014 YONATHAN RIOS MD Ot 786.59 CHEST PAIN NEC 07/03/2014 YONATHAN RIOS MD Ot 788.20 RETENTION OF URINE NOS 07/03/2014 YONATHAN RIOS MD Ot V04.81 ND FOR PROPHYLACTIC VACCIN AND INOCULATI 07/03/2014 YONATHAN RIOS MD Ot V12.79 PERSONAL HISTORY OTH SPEC DIGESTIVE SYST 07/03/2014 YONATHAN RIOS MD Ot V45.82 PERCUTANEOUS TRANSLUM CORON ANGIOPLASTY 07/03/2014 YONATHAN RIOS MD Ot V58.67 LONG-TERM (CURRENT) USE OF INSULIN 07/03/2014 YONATHAN RIOS MD Ot V85.43 BODY MASS INDEX 50.0-59.9, ADULT 07/27/2014 YONATHAN RIOS MD Ot 250.00 DIAB AILEEN WO COMPL, TYPE II OR UNSPEC TY 07/27/2014 YONATHAN RIOS MD Ot 276.51 DEHYDRATION 07/27/2014 YONATHAN RIOS MD Ot 296.80 BIPOLAR DISORDER, UNSPECIFIED 07/27/2014 YONATHAN RIOS MD Ot 536.2 PERSISTENT VOMITING 07/27/2014 YONATHAN RIOS MD Ot 584.9 ACUTE RENAL FAILURE, UNSPECIFIED 07/27/2014 BLANCA ROBINS, YONATHAN Ivy Ot 787.91 DIARRHEA 07/27/2014 BLANCA ROBINS, YONATHAN Ivy Ot V58.67 LONG-TERM (CURRENT) USE OF INSULIN 08/04/2014 WU CHAIR, NOEMI S 593.9 RENAL INSUFFICIENCY 08/04/2014 WU CHAIR, NOEMI S 787.91 DIARRHEA 08/04/2014 ROSELINE LUIS PHD 593.9 RENAL INSUFFICIENCY 08/04/2014 ROSELINE LUIS PHD 787.91 DIARRHEA 08/04/2014 WU CHAIR, NOEMI S 593.9 RENAL INSUFFICIENCY 08/04/2014 WU CHAIR, NOEMI S 787.91 DIARRHEA 08/04/2014 YONATHAN RIOS MD 593.9 RENAL INSUFFICIENCY 08/04/2014 YONATHAN RIOS MD 787.91 DIARRHEA 08/04/2014 WU CHAIR, NOEMI S 593.9 RENAL INSUFFICIENCY 08/04/2014 WU CHAIR, NOEMI S 787.91 DIARRHEA 08/04/2014 WU CHAIR, NOEMI S 593.9 RENAL INSUFFICIENCY 08/04/2014 WU CHAIR, NOEMI S 787.91 DIARRHEA 08/04/2014 ROSELINE LUIS PHD 593.9 RENAL INSUFFICIENCY 08/04/2014 ROSELINE LUIS PHD 787.91 DIARRHEA 08/04/2014 LEXI FRENCH TEACHER, ALYSE M 593.9 RENAL INSUFFICIENCY 08/04/2014 LEXI FRENCH TEACHER, ALYSE M 787.91 DIARRHEA 08/04/2014 LEXI FRENCH TEACHER, ALYSE M 593.9 RENAL INSUFFICIENCY 08/04/2014 LEXI FRENCH TEACHER, ALYSE M 787.91 DIARRHEA 08/04/2014 WU CHAIR, NOEMI S 593.9 RENAL INSUFFICIENCY 08/04/2014 WU CHAIR, NOEMI S 787.91 DIARRHEA 08/04/2014 WU CHAIR, NOEMI S 593.9 RENAL INSUFFICIENCY 08/04/2014 WU CHAIR, NOEMI S 787.91 DIARRHEA 08/04/2014 ROSELINE LUIS PHD 593.9 RENAL INSUFFICIENCY 08/04/2014 ROSELINE LUIS PHD 787.91 DIARRHEA 08/04/2014 DIPTI WASHBURN APRNNDA S 593.9 RENAL INSUFFICIENCY 08/04/2014 DIPTI WASHBURN APRNNDA S 787.91 DIARRHEA 08/25/2014 ROSEMARY ROBINS, BRETT M Ot 250.00 DIAB AILEEN WO COMPL, TYPE II OR UNSPEC TY 08/25/2014 ROSEMARY ROBINS, BRETT Hatch Ot 455.0 INT HEMORRHOID W/O COMPL 08/25/2014 ROSEMARY ROBINS, BRETT Hatch Ot 562.10 DIVERTICULOSIS COLON (W/O MENT OF HEMORR 08/25/2014 ROSEMARY ROBNIS, BRETT Hatch Ot 787.91 DIARRHEA 09/03/2014 YONATHAN RIOS MD 307.42 INSOMNIA, PSYCHOPHYSIOLOGICAL 09/03/2014 YONATHAN RIOS MD V04.81 FLU SHOT 09/03/2014 WU LOZADA NOEMI S 296.34 MO DEPRESSIVE RECURRENT SEVERE WITH PSYCHOTIC BEHAVIOR 09/03/2014 DIPTI WASHBURN APRNNDA S 307.42 INSOMNIA, PSYCHOPHYSIOLOGICAL 09/03/2014 DIPTI WASHBURN APRNNDA S V04.81 FLU SHOT 09/03/2014 DIPTI WASHBURN APRNNDA S 296.34 MO DEPRESSIVE RECURRENT SEVERE WITH PSYCHOTIC BEHAVIOR 09/03/2014 DIPTI WASHBURN APRNNDA S 307.42 INSOMNIA, PSYCHOPHYSIOLOGICAL 09/03/2014 UW LOZADA NOEMI S V04.81 FLU SHOT 09/03/2014 ROSELINE LUIS PHD 296.34 MO DEPRESSIVE RECURRENT SEVERE WITH PSYCHOTIC BEHAVIOR 09/03/2014 ROSELINE LUIS PHD 307.42 INSOMNIA, PSYCHOPHYSIOLOGICAL 09/03/2014 ROSELINE LUIS PHD V04.81 FLU SHOT 09/03/2014 ALYSE LIMA 296.34 MO DEPRESSIVE RECURRENT SEVERE WITH PSYCHOTIC BEHAVIOR 09/03/2014 ALYSE LIMA 307.42 INSOMNIA, PSYCHOPHYSIOLOGICAL 09/03/2014 ALYSE LIMA V04.81 FLU SHOT 09/03/2014 ALYSE LIMA M 296.34 MO DEPRESSIVE RECURRENT SEVERE WITH PSYCHOTIC BEHAVIOR 09/03/2014 ALYSE LIMA 307.42 INSOMNIA, PSYCHOPHYSIOLOGICAL 09/03/2014 ALYSE LIMA V04.81 FLU SHOT 09/03/2014 WU CHAIR, NOEMI S 296.34 MO DEPRESSIVE RECURRENT SEVERE WITH PSYCHOTIC BEHAVIOR 09/03/2014 WU CHAIR, NOEMI S 307.42 INSOMNIA, PSYCHOPHYSIOLOGICAL 09/03/2014 DIPTI WASHBURN APRNNDA S V04.81 FLU SHOT 09/03/2014 WU CHAIR, NOEMI S 296.34 MO DEPRESSIVE RECURRENT SEVERE WITH PSYCHOTIC BEHAVIOR 09/03/2014 WU CHAIR, NOEMI S 307.42 INSOMNIA, PSYCHOPHYSIOLOGICAL 09/03/2014 DIPTI WASHBURN APRNNDA S V04.81 FLU SHOT 09/03/2014 ROSELINE LUIS PHD 296.34 MO DEPRESSIVE RECURRENT SEVERE WITH PSYCHOTIC BEHAVIOR 09/03/2014 TOBY JANE, ROSELINE Thakur 307.42 INSOMNIA, PSYCHOPHYSIOLOGICAL 09/03/2014 ROSELINE LUIS PHD V04.81 FLU SHOT 09/03/2014 WU LOZADA NOEMI S 296.34 MO DEPRESSIVE RECURRENT SEVERE WITH PSYCHOTIC BEHAVIOR 09/03/2014 DIPTI WASHBURN APRNNDA S 307.42 INSOMNIA, PSYCHOPHYSIOLOGICAL 09/03/2014 DIPTI WASHBURN APRNNDA S V04.81 FLU SHOT 09/16/2014 CARMEN ROBINS, GABBIE Lam Ot 200.10 09/16/2014 CARMEN ROBINS, GABBIE Lam Ot 208.90 09/26/2014 JEN BROOKS MD Ot 724.2 LUMBAGO 09/26/2014 JEN BROOKS MD Ot 726.69 ENTHESOPATHY OF KNEE NEC 09/26/2014 JEN BROOKS MD Ot 959.19 OTH INJURY OF OTHER SITES OF TRUNK 09/26/2014 JEN BROOKS MD Ot E000.8 OTHER EXTERNAL CAUSE STATUS 09/26/2014 JEN BROOKS MD Ot E849.0 ACCIDENT IN HOME 09/26/2014 JEN BROOKS MD Ot E885.9 FALL FROM SLIPPING, TRIPPING, OR STUMBLI 10/02/2014 ALYSE LIMA 719.46 PAIN- KNEE 10/02/2014 ALYSE LIMA 782.3 EDEMA 10/02/2014 ALYSE LIMA 719.46 PAIN- KNEE 10/02/2014 ALYSE LIMA 782.3 EDEMA 10/02/2014 WU CHAIR, NOEMI S 719.46 PAIN- KNEE 10/02/2014 JOSE WASHBURN APRNA S 782.3 EDEMA 10/02/2014 WU LOZADA, NOEMI S 719.46 PAIN- KNEE 10/02/2014 WU LOZADA, NOEMI S 782.3 EDEMA 10/02/2014 ROSELINE LUIS PHD 719.46 PAIN- KNEE 10/02/2014 ROSELINE LUIS PHD 782.3 EDEMA 10/02/2014 NOEMI WASHBURN APRN S 719.46 PAIN- KNEE 10/02/2014 JOSE WASHBURN APRNA S 782.3 EDEMA 10/09/2014 NOEMI WASHBURN Ot 327.23 OBSTRUCTIVE SLEEP APNEA (ADULT) (PEDIATR 10/12/2014 CARMEN ROBINS, GABBIE Lam Ot 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, EXTRANODAL SOLID ORGAN 10/12/2014 CARMEN ROBINS, GABBIE Lam Ot 208.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 LEUKEMIA, W/O MENTION OF HAV 10/13/2014 CARMEN ROBINS, GABBIE Lam Ot 200.10 10/13/2014 CARMEN ROBINS, GABBIE Lam Ot 208.90 10/14/2014 CARMEN ROBINS, GABBIE Lam Ot 200.10 10/14/2014 CARMEN ROBINS, GABBIE Lam Ot 208.90 10/15/2014 CARMEN ROBINS, GABBIE Lam Ot 200.10 10/15/2014 CARMEN ROBINS, GABBIE Lam Ot 208.90 10/17/2014 NOEMI WASHBURN APRN S 296.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 I MIXED MODERATE 10/17/2014 NOEMI WASHBURN APRN S 296.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 I MIXED MODERATE 10/17/2014 ROSELINE LUIS PHD 296.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 I MIXED MODERATE 10/17/2014 NOEMI WASHBURN APRN S 296.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 I MIXED MODERATE 11/03/2014 NOEMI WASHBURN Ot 729.81 11/20/2014 NOEMI WASHBURN APRN S 836.0 TEAR OF MEDIAL CARTILAGE OR MENISCUS OF KNEE CURRENT 11/20/2014 ROSELINE LUIS PHD 836.0 TEAR OF MEDIAL CARTILAGE OR MENISCUS OF KNEE CURRENT 11/20/2014 NOEMI WASHBURN APRN S 836.0 TEAR OF MEDIAL CARTILAGE OR MENISCUS OF KNEE CURRENT 11/20/2014 CARMEN ROBINS, GABBIE Lam Ot 200.10 11/20/2014 CARMEN ROBINS, GABBIE Lam Ot 208.90 12/17/2014 DIPTI WASHBURN APRNNDA S 173.31 BASAL CELL CARCINOMA OF SKIN OF OTHER AND UNSPECIFIED PARTS OF FACE 12/17/2014 WU LOZADA NOEMI S 368.8 OTHER SPECIFIED VISUAL DISTURBANCES 12/17/2014 WU LOZADA NOEMI S 373.11 HORDEOLUM EXTERNUM 12/17/2014 DIPTI WASHBURN APRNNDA S 719.40 PAIN IN JOINT SITE UNSPECIFIED 12/17/2014 ROSELINE LUIS PHD 173.31 BASAL CELL CARCINOMA OF SKIN OF OTHER AND UNSPECIFIED PARTS OF FACE 12/17/2014 ROSELINE LUIS PHD 368.8 OTHER SPECIFIED VISUAL DISTURBANCES 12/17/2014 ROSELINE LUIS PHD 373.11 HORDEOLUM EXTERNUM 12/17/2014 ROSELINE LUIS PHD 719.40 PAIN IN JOINT SITE UNSPECIFIED 12/17/2014 DIPTI WASHBURN APRNNDA S 173.31 BASAL CELL CARCINOMA OF SKIN OF OTHER AND UNSPECIFIED PARTS OF FACE 12/17/2014 DIPTI WASHBURN APRNNDA S 368.8 OTHER SPECIFIED VISUAL DISTURBANCES 12/17/2014 DIPTI WASHBURN APRNNDA S 373.11 HORDEOLUM EXTERNUM 12/17/2014 DIPTI WASHBURN APRNNDA S 719.40 PAIN IN JOINT SITE UNSPECIFIED 01/08/2015 CARMEN ROBINS, GABBIE Lam Ot 200.10 01/08/2015 GABBIE MORALES MD Ot 208.90 01/12/2015 CARMEN ROBINS, GABBIE Lam Ot 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, EXTRANODAL SOLID ORGAN 01/12/2015 CARMEN ROBINS, GABBIE Lam Ot 208.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 LEUKEMIA, W/O MENTION OF HAV 01/12/2015 CARMEN ROBINS, GABBIE Lam Ot V58.69 OTH MED,LT,CURRENT USE 02/10/2015 YONATHAN RIOS MD Ot 202.80 OTH LYMPHOMAS EXTRANODAL SOLID ORGAN U 02/10/2015 YONATHAN RIOS MD Ot 250.00 DIAB AILEEN WO COMPL, TYPE II OR UNSPEC TY 02/10/2015 YONATHAN RIOS MD Ot 272.4 HYPERLIPIDEMIA NEC/NOS 02/10/2015 YONATHAN RIOS MD Ot 276.8 HYPOPOTASSEMIA 02/10/2015 YONATHAN RIOS MD Ot 278.01 MORBID OBESITY 02/10/2015 BLANCA ROBINS, YONATHAN Ivy Ot 288.60 LEUKOCYTOSIS, UNSPECIFIED 02/10/2015 YONATHAN RIOS MD Ot 296.80 BIPOLAR DISORDER, UNSPECIFIED 02/10/2015 YONATHAN RIOS MD Ot 305.1 TOBACCO USE DISORDER 02/10/2015 YONATHAN RIOS MD Ot 327.23 OBSTRUCTIVE SLEEP APNEA (ADULT) (PEDIATR 02/10/2015 YONATHAN RIOS MD Ot 345.90 EPILEPSY UNSPEC W/O MENTION INTRACTABLE 02/10/2015 YONATHAN RIOS MD Ot 401.9 HYPERTENSION NOS 02/10/2015 BLANCA ROBINS, YONATHAN Ivy Ot 412 OLD MYOCARDIAL INFARCT 02/10/2015 YONATHAN RIOS MD Ot 414.01 CORONARY ATHEROSCLEROSIS OF [place] CORON 02/10/2015 YONATHAN RIOS MD Ot 493.20 CHRONIC OBSTRUCTIVE ASTHMA, NOS 02/10/2015 YONATHAN RIOS MD Ot 530.81 ESOPHAGEAL REFLUX 02/10/2015 YONATHAN RIOS MD Ot 724.5 BACKACHE NOS 02/10/2015 YONATHAN RIOS MD Ot 786.59 CHEST PAIN NEC 02/10/2015 YONATHAN RIOS MD Ot V45.82 PERCUTANEOUS TRANSLUM CORON ANGIOPLASTY 02/10/2015 YONATHAN RIOS MD Ot V58.67 LONG-TERM (CURRENT) USE OF INSULIN 04/29/2015 CARMEN ROBINS, GABBIE Lam Ot 200.10 04/29/2015 CARMEN ROBINS, GABBIE Lam Ot 208.90 04/29/2015 CARMEN ROBINS, GABBIE Lam Ot 200.10 04/29/2015 CARMEN ROBINS, GABBIE Lam Ot 208.90 04/30/2015 CARMEN ROBINS, GABBIE Lam Ot 200.10 04/30/2015 CARMEN ROBINS, GABBIE Lam Ot 208.90 05/01/2015 CARMEN ROBINS, GABBIE Lam Ot 200.10 05/01/2015 CARMEN ROBINS, GABBIE Lam Ot 208.90 05/04/2015 CARMEN ROBINS, GABBIE Lam Ot 200.10 05/04/2015 CARMEN ROBINS, GABBIE Lam Ot 208.90 05/04/2015 CARMEN ROBINS, GABBIE Lam Ot V58.69 05/13/2015 NOEMI WASHBURN LIGHT CLEANER Ot 571.8 05/13/2015 NOEMI WASHBURN LIGHT CLEANER Ot 787.01 05/13/2015 GABBIE MORALES MD Ot 200.10 05/13/2015 GABBIE MORALES MD Ot 208.90 05/13/2015 GABBIE MORALES MD Ot V58.69 05/27/2015 NOEMI WASHBURN LIGHT CLEANER Ot 571.8 05/27/2015 NOEMI WASHBURN LIGHT CLEANER Ot 787.01 06/24/2015 GABBIE MORALES MD Ot 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, EXTRANODAL SOLID ORGAN 06/24/2015 CARMEN ROBINS, GABBIE Lam Ot 208.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 LEUKEMIA, W/O MENTION OF HAV 06/24/2015 GABBIE MORALES MD Ot V58.69 OTH MED,LT,CURRENT USE 06/24/2015 GABBIE MORALES MD Ot 200.10 06/24/2015 GABBIE MORALES MD Ot 208.90 06/24/2015 GABBIE MORALES MD Ot V58.69 09/17/2015 VIKTOR ROBINS, DAISY T Ot E16.2 HYPOGLYCEMIA, UNSPECIFIED 09/17/2015 VIKTOR ROBINS, DAISY T Ot R11.2 NAUSEA WITH VOMITING, UNSPECIFIED 09/17/2015 VIKTOR ROBINS, DAISY T Ot R30.0 DYSURIA 09/17/2015 VIKTOR ROBINS, DAISY T Ot R33.9 RETENTION OF URINE, UNSPECIFIED 10/20/2015 HIEN ROBINS FACC, ESPERANZA FACP CCDS Ot 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, UNSPECIFIED 10/20/2015 HIEN ROBINS FACC, ESPERANZA FACP CCDS Ot E11.9 TYPE 2 DIABETES MELLITUS WITHOUT COMPLIC 10/20/2015 HIEN ROBINS FACC, ESPERANZA FACP CCDS Ot E66.01 MORBID (SEVERE) OBESITY DUE TO EXCESS CA 10/20/2015 HIEN ROBINS FACC, ESPERANZA FACP CCDS Ot E78.5 HYPERLIPIDEMIA, UNSPECIFIED 10/20/2015 HIEN ROBINS FACC, ESPERANZA FACP CCDS Ot G47.30 SLEEP APNEA, UNSPECIFIED 10/20/2015 HIEN ROBINS FACC, ESPERANZA FACP CCDS Ot I10 ESSENTIAL (PRIMARY) HYPERTENSION 10/20/2015 HIEN ROBINS FACC, ESPERANZA FACP CCDS Ot I25.10 ATHSCL HEART DISEASE OF [place] CORONARY 10/20/2015 HIEN ROBINS FACC, ESPERANZA FACP CCDS Ot J44.9 CHRONIC OBSTRUCTIVE PULMONARY DISEASE, U 10/20/[address] [facility], ALI FACP CCDS Ot R07.89 OTHER CHEST PAIN 10/20/2015 HIEN ROBINS FACC, ALI FACP CCDS Ot Z68.43 BODY MASS INDEX (BMI) 50-59.9 , ADULT 10/20/2015 HIEN ROBINS FACC, ALI FACP CCDS Ot Z79.899 OTHER JAIL (CURRENT) DRUG THERAPY 10/20/2015 HIEN ROBINS FACC, ALI FACP CCDS Ot Z98.61 CORONARY ANGIOPLASTY STATUS 12/02/2015 GABBIE MORALES MD Ot D72.820 LYMPHOCYTOSIS (SYMPTOMATIC) 12/02/2015 GABBIE MORALES MD Ot E11.9 TYPE 2 DIABETES MELLITUS WITHOUT COMPLIC 12/02/2015 GABBIE MORALES MD Ot E66.01 MORBID (SEVERE) OBESITY DUE TO EXCESS CA 12/02/2015 GABBIE MORALES MD Ot E78.5 HYPERLIPIDEMIA, UNSPECIFIED 12/02/2015 GABBIE MORALES MD Ot E87.6 HYPOKALEMIA 12/02/2015 GABBIE MORALES MD Ot G47.30 SLEEP APNEA, UNSPECIFIED 12/02/2015 GABBIE MORALES MD Ot I10 ESSENTIAL (PRIMARY) HYPERTENSION 12/02/2015 GABBIE MORALES MD Ot I25.10 ATHSCL HEART DISEASE OF [place] CORONARY 12/02/2015 CARMEN ROBINS, GABBIE Lam Ot J44.9 CHRONIC OBSTRUCTIVE PULMONARY DISEASE, U 12/02/2015 GABBIE MORALES MD Ot Z68.43 BODY MASS INDEX (BMI) 50-59.9 , ADULT 12/02/2015 GABBIE MORALES MD Ot Z79.899 OTHER JAIL (CURRENT) DRUG THERAPY 12/02/2015 GABBIE MORALES MD Ot Z95.5 PRESENCE OF CORONARY ANGIOPLASTY IMPLANT 12/04/2015 GABBIE MORALES MD Ot D72.820 12/04/2015 GABBIE MORALES MD Ot E11.9 12/04/2015 GABBIE MORALES MD Ot E66.01 12/04/2015 GABBIE MORALES MD Ot E78.5 12/04/2015 GABBIE MORALES MD Ot E87.6 12/04/2015 GABBIE MORALES MD Ot G47.30 12/04/2015 GABBIE MORALES MD Ot I10 12/04/2015 GABBIE MORALES MD Ot I25.10 12/04/2015 GABBIE MORALES MD, Ot J44.9 12/04/2015 CARMEN ROBINS, GABBIE Lam Ot Z68.43 12/04/2015 CARMEN ROBINS, GABBIE Lam Ot Z79.899 12/04/2015 CARMEN ROBINS, GABBIE Lam Ot Z95.5 12/14/2015 CARMEN ROBINS, GABBIE Lam Ot D72.820 12/14/2015 CRAMEN ROBINS, GABBIE Lam Ot E11.9 12/14/2015 CARMEN ROBINS, GABBIE Lam Ot E66.01 12/14/2015 CARMEN ROBINS, GABBIE Lam Ot E78.5 12/14/2015 CARMEN ROBINS, GABBIE Lam Ot E87.6 12/14/2015 CARMEN ROBINS, GABBIE Lam Ot G47.30 12/14/2015 GABBIE MORALES MD Ot I10 12/14/2015 CARMEN ROBINS, GABBIE Lam Ot I25.10 12/14/2015 CARMEN ROBINS, GABBIE Lam Ot J44.9 12/14/2015 GABBIE MORALES MD Ot Z68.43 12/14/2015 GABBIE MORALES MD Ot Z79.899 12/14/2015 GABBIE MORALES MD Ot Z95.5 01/15/2016 CARMEN ROBINS, GABBIE Lam Ot D72.820 LYMPHOCYTOSIS (SYMPTOMATIC) 01/15/2016 CARMEN ROBINS, GABBIE Lam Ot E11.9 TYPE 2 DIABETES MELLITUS WITHOUT COMPLIC 01/15/2016 CARMEN ROBINS, GABBIE Lam Ot E66.01 MORBID (SEVERE) OBESITY DUE TO EXCESS CA 01/15/2016 GABBIE MORALES MD Ot E78.5 HYPERLIPIDEMIA, UNSPECIFIED 01/15/2016 GABBIE MORALES MD Ot E87.6 HYPOKALEMIA 01/15/2016 GABBIE MORALES MD Ot G47.30 SLEEP APNEA, UNSPECIFIED 01/15/2016 CARMEN ROBINS, GABBIE Lam Ot I10 ESSENTIAL (PRIMARY) HYPERTENSION 01/15/2016 GABBIE MORALES MD Ot I25.10 ATHSCL HEART DISEASE OF [place] CORONARY 01/15/2016 GABBIE MORALES MD Ot J44.9 CHRONIC OBSTRUCTIVE PULMONARY DISEASE, U 01/15/2016 GABBIE MORALES MD, Ot Z68.43 BODY MASS INDEX (BMI) 50-59.9 , ADULT 01/15/2016 GABBIE MORALES MD Ot Z79.899 OTHER JAIL (CURRENT) DRUG THERAPY 01/15/2016 GABBIE MORALES MD Ot Z95.5 PRESENCE OF CORONARY ANGIOPLASTY IMPLANT 03/02/2016 GABBIE MORALES MD, Ot D72.820 LYMPHOCYTOSIS (SYMPTOMATIC) 03/02/2016 GABBIE MORALES MD Ot E11.9 TYPE 2 DIABETES MELLITUS WITHOUT COMPLIC 03/02/2016 GABBIE MORALES MD, Ot E66.01 MORBID (SEVERE) OBESITY DUE TO EXCESS CA 03/02/2016 GABBIE MORALES MD, Ot E78.5 HYPERLIPIDEMIA, UNSPECIFIED 03/02/2016 GABBIE MORALES MD Ot E87.6 HYPOKALEMIA 03/02/2016 GABBIE MORALES MD, Ot G47.30 SLEEP APNEA, UNSPECIFIED 03/02/2016 GABBIE MORALES MD Ot I10 ESSENTIAL (PRIMARY) HYPERTENSION 03/02/2016 GABBIE MORALES MD, Ot I25.10 ATHSCL HEART DISEASE OF [place] CORONARY 03/02/2016 GABBIE MORALES MD, Ot J44.9 CHRONIC OBSTRUCTIVE PULMONARY DISEASE, U 03/02/2016 GABBIE MORALES MD, Ot Z68.43 BODY MASS INDEX (BMI) 50-59.9 , ADULT 03/02/2016 GABBIE MORALES MD, Ot Z79.899 OTHER PERSONAL COUNSELOR (CURRENT) DRUG THERAPY 03/02/2016 GABBIE MORALES MD Ot Z95.5 PRESENCE OF CORONARY ANGIOPLASTY IMPLANT 03/03/2016 GABBIE MORALES MD, Ot D72.820 LYMPHOCYTOSIS (SYMPTOMATIC) 03/03/2016 GABBIE MORALES MD, Ot E11.9 TYPE 2 DIABETES MELLITUS WITHOUT COMPLIC 03/03/2016 GABBIE MORALES MD, Ot E66.01 MORBID (SEVERE) OBESITY DUE TO EXCESS CA 03/03/2016 GABBIE MORALES MD, Ot E78.5 HYPERLIPIDEMIA, UNSPECIFIED 03/03/2016 GABBIE MORALES MD, Ot E87.6 HYPOKALEMIA 03/03/2016 GABBIE MORALES MD, Ot G47.30 SLEEP APNEA, UNSPECIFIED 03/03/2016 GABBIE MORALES MD Ot I10 ESSENTIAL (PRIMARY) HYPERTENSION 03/03/2016 GABBIE MORALES MD Ot I25.10 ATHSCL HEART DISEASE OF [place] CORONARY 03/03/2016 GABBIE MORALES MD, Ot J44.9 CHRONIC OBSTRUCTIVE PULMONARY DISEASE, U 03/03/2016 GABBIE MORALES MD, Ot Z68.43 BODY MASS INDEX (BMI) 50-59.9 , ADULT 03/03/2016 GABBIE MORALES MD, Ot Z79.899 OTHER PERSONAL COUNSELOR (CURRENT) DRUG THERAPY 03/03/2016 GABBIE MORALES MD Ot Z95.5 PRESENCE OF CORONARY ANGIOPLASTY IMPLANT 06/02/2016 GABBIE MORALES MD, Ot D72.820 LYMPHOCYTOSIS (SYMPTOMATIC) 06/02/2016 GABBIE MORALES MD Ot E11.9 TYPE 2 DIABETES MELLITUS WITHOUT COMPLIC 06/02/2016 GABBIE MORALES MD, Ot E66.01 MORBID (SEVERE) OBESITY DUE TO EXCESS CA 06/02/2016 GABBIE MORALES MD, Ot E78.5 HYPERLIPIDEMIA, UNSPECIFIED 06/02/2016 GABBIE MORALES MD, Ot E87.6 HYPOKALEMIA 06/02/2016 GABBIE MORALES MD, Ot G47.30 SLEEP APNEA, UNSPECIFIED 06/02/2016 GABBIE MORALES MD Ot I10 ESSENTIAL (PRIMARY) HYPERTENSION 06/02/2016 GABBIE MORALES MD, Ot I25.10 ATHSCL HEART DISEASE OF [place] CORONARY 06/02/2016 GABBIE MORALES MD, Ot J44.9 CHRONIC OBSTRUCTIVE PULMONARY DISEASE, U 06/02/2016 GABBIE MORALES MD, Ot Z68.43 BODY MASS INDEX (BMI) 50-59.9 , ADULT 06/02/2016 GABBIE MORALES MD, Ot Z79.899 OTHER PERSONAL COUNSELOR (CURRENT) DRUG THERAPY 06/02/2016 GABBIE MORALES MD, Ot Z95.5 PRESENCE OF CORONARY ANGIOPLASTY IMPLANT 06/10/2016 GABBIE MORLAES MD, Ot D72.820 LYMPHOCYTOSIS (SYMPTOMATIC) 06/10/2016 GABBEI MORALES MD, Ot E11.9 TYPE 2 DIABETES MELLITUS WITHOUT COMPLIC 06/10/2016 GABBIE MORALES MD, Ot E66.01 MORBID (SEVERE) OBESITY DUE TO EXCESS CA 06/10/2016 GABBIE MORALES MD, Ot E78.5 HYPERLIPIDEMIA, UNSPECIFIED 06/10/2016 GABBIE MORALES MD, Ot E87.6 HYPOKALEMIA 06/10/2016 GABBIE MORALES MD, Ot G47.30 SLEEP APNEA, UNSPECIFIED 06/10/2016 GABBIE MORALES MD Ot I10 ESSENTIAL (PRIMARY) HYPERTENSION 06/10/2016 GABBIE MORALES MD, Ot I25.10 ATHSCL HEART DISEASE OF [place] CORONARY 06/10/2016 GABBIE MORALES MD, Ot J44.9 CHRONIC OBSTRUCTIVE PULMONARY DISEASE, U 06/10/2016 GABBIE MORALES MD, Ot Z68.43 BODY MASS INDEX (BMI) 50-59.9 , ADULT 06/10/2016 GABBIE MORALES MD, Ot Z79.899 OTHER PERSONAL COUNSELOR (CURRENT) DRUG THERAPY 06/10/2016 GABBIE MORALES MD Ot Z95.5 PRESENCE OF CORONARY ANGIOPLASTY IMPLANT 07/04/2016 GABBIE MORALES MD Ot D72.820 LYMPHOCYTOSIS (SYMPTOMATIC) 07/04/2016 GABBIE MORALES MD Ot E11.9 TYPE 2 DIABETES MELLITUS WITHOUT COMPLIC 07/04/2016 GABBEI MORALES MD Ot E66.01 MORBID (SEVERE) OBESITY DUE TO EXCESS CA 07/04/2016 GABBIE MORALES MD Ot E78.5 HYPERLIPIDEMIA, UNSPECIFIED 07/04/2016 GABBIE MORALES MD Ot E87.6 HYPOKALEMIA 07/04/2016 GABBIE MORALES MD Ot G47.30 SLEEP APNEA, UNSPECIFIED 07/04/2016 GABBIE MORALES MD Ot I10 ESSENTIAL (PRIMARY) HYPERTENSION 07/04/2016 GABBIE MORALES MD Ot I25.10 ATHSCL HEART DISEASE OF [place] CORONARY 07/04/2016 GABBIE MORALES MD Ot J44.9 CHRONIC OBSTRUCTIVE PULMONARY DISEASE, U 07/04/2016 GABBIE MORALES MD Ot Z68.43 BODY MASS INDEX (BMI) 50-59.9 , ADULT 07/04/2016 GABBIE MORALES MD Ot Z79.899 OTHER PERSONAL COUNSELOR (CURRENT) DRUG THERAPY 07/04/2016 GABBIE MORALES MD Ot Z95.5 PRESENCE OF CORONARY ANGIOPLASTY IMPLANT 08/04/2016 Ot 787.01 NAUSEA WITH VOMITING 08/04/2016 Ot 789.00 ABDOMINAL PAIN, UNSPECIFIED SITE 08/04/2016 Ot 368.9 VISUAL DISTURBANCE NOS 08/04/2016 Ot 784.0 HEADACHE 08/04/2016 Ot 250.00 DIAB AILEEN WO COMPL, TYPE II OR UNSPEC TY 08/04/2016 Ot 369.9 VISUAL LOSS NOS 08/04/2016 Ot 433.10 CAROTID ARTERY OCCLUSION W O CEREBRAL IN 08/04/2016 NOEMI WASHBURN Ot 250.80 DIAB W OTH SPEC MANIFEST, TYPE II OR UNS 08/04/2016 NOEMI WASHBURN Ot 276.7 HYPERPOTASSEMIA 08/04/2016 NOEMI WASHBURN Ot 280.1 IRON DEF ANEMIA DIETARY 08/04/2016 NOEMI WASHBURN Ot 293.84 ANXIETY DISORDER IN CONDITIONS CLASSIFIE 08/04/2016 NOEMI WASHBURN Ot 310.1 PERSONALITY CHANGE DUE TO CONDITIONS CLA 08/04/2016 NOEMI WASHBURN Ot 327.23 OBSTRUCTIVE SLEEP APNEA (ADULT) (PEDIATR 08/04/2016 NOEMI WASHBURN Ot 401.0 MALIGNANT HYPERTENSION 08/04/2016 NOEMI WASHBURNP Ot 414.00 CORON ATHEROSCLER NOS TYPE VESSEL, NATIV 08/04/2016 NOEMI WASHBURN Ot 719.41 JOINT PAIN-SHLDER 08/04/2016 NOEMI WASHBURN Ot 780.93 MEMORY LOSS 08/04/2016 NOEMI WASHBURN Ot 785.1 PALPITATIONS 08/04/2016 NOEMI WASHBURN Ot 786.09 RESPIRATORY ABNORM NEC 08/04/2016 TREVOR SCHULZ DO Ot 250.90 DIAB W UNSPEC COMPL, TYPE II OR UNSPEC T 08/04/2016 TREVOR SCHULZ DO Ot 278.01 MORBID OBESITY 08/04/2016 TREVOR SCHULZ DO Ot 288.61 LYMPHOCYTOSIS (SYMPTOMATIC) 08/04/2016 TREVOR SCHULZ DO Ot 296.89 OTHER AND UNSPECIFIED BIPOLAR DISORDERS, 08/04/2016 TREVOR SCHULZ DO Ot 327.23 OBSTRUCTIVE SLEEP APNEA (ADULT) (PEDIATR 08/04/2016 TREVOR SCHULZ DO Ot 401.1 BENIGN HYPERTENSION 08/04/2016 TREVOR SCHULZ DO Ot 414.00 CORON ATHEROSCLER NOS TYPE VESSEL, NATIV 08/04/2016 TREVOR SCHULZ DO Ot V58.69 OTH MED,LT,CURRENT USE 08/04/2016 ROSEMARY ROBINS, BRETT Hatch Ot V72.84 EXAM PRE-OPERATIVE NOS 08/04/2016 NOEMI WASHBURN Ot 729.81 SWELLING OF LIMB 08/04/2016 NOEMI WASHBURN Ot 571.8 CHRONIC LIVER DIS NEC 08/04/2016 NOEMI WASHBURN Ot 787.01 NAUSEA WITH VOMITING 08/04/2016 GABBIE MORALES MD Ot D72.820 LYMPHOCYTOSIS (SYMPTOMATIC) 08/04/2016 GABBIE MORALES MD Ot E11.9 TYPE 2 DIABETES MELLITUS WITHOUT COMPLIC 08/04/2016 GABBIE MORALES MD Ot E66.01 MORBID (SEVERE) OBESITY DUE TO EXCESS CA 08/04/2016 GABBIE MORALES MD Ot E78.5 HYPERLIPIDEMIA, UNSPECIFIED 08/04/2016 GABBIE MORALES MD Ot E87.6 HYPOKALEMIA 08/04/2016 GABBIE MORALES MD, Ot G47.30 SLEEP APNEA, UNSPECIFIED 08/04/2016 GABBIE MORALES MD Ot I10 ESSENTIAL (PRIMARY) HYPERTENSION 08/04/2016 GABBIE MORALES MD Ot I25.10 ATHSCL HEART DISEASE OF [place] CORONARY 08/04/2016 GABBIE MORALES MD, Ot J44.9 CHRONIC OBSTRUCTIVE PULMONARY DISEASE, U 08/04/2016 GABBIE MORALES MD, Ot Z68.43 BODY MASS INDEX (BMI) 50-59.9 , ADULT 08/04/2016 GABBIE MORALES MD, Ot Z79.899 OTHER PERSONAL COUNSELOR (CURRENT) DRUG THERAPY 08/04/2016 GABBIE MORALES MD, Ot Z95.5 PRESENCE OF CORONARY ANGIOPLASTY IMPLANT 08/04/2016 GABBIE MORALES MD, Ot D72.820 LYMPHOCYTOSIS (SYMPTOMATIC) 08/05/2016 GABBIE MORALES MD, Ot D72.820 LYMPHOCYTOSIS (SYMPTOMATIC) 08/05/2016 GABBIE MORALES MD Ot E11.9 TYPE 2 DIABETES MELLITUS WITHOUT COMPLIC 08/05/2016 GABBIE MORALES MD Ot E66.01 MORBID (SEVERE) OBESITY DUE TO EXCESS CA 08/05/2016 GABBIE MORALES MD, Ot E78.5 HYPERLIPIDEMIA, UNSPECIFIED 08/05/2016 GABBIE MORALES MD, Ot E87.6 HYPOKALEMIA 08/05/2016 GABBIE MORALES MD, Ot G47.30 SLEEP APNEA, UNSPECIFIED 08/05/2016 GABBIE MORALES MD Ot I10 ESSENTIAL (PRIMARY) HYPERTENSION 08/05/2016 GABBIE MORALES MD, Ot I25.10 ATHSCL HEART DISEASE OF [place] CORONARY 08/05/2016 GABBIE MORALES MD, Ot J44.9 CHRONIC OBSTRUCTIVE PULMONARY DISEASE, U 08/05/2016 GABBIE MORALES MD, Ot Z68.43 BODY MASS INDEX (BMI) 50-59.9 , ADULT 08/05/2016 GABBIE MORALES MD, Ot Z79.899 OTHER PERSONAL COUNSELOR (CURRENT) DRUG THERAPY 08/05/2016 GABBIE MORALES MD Ot Z95.5 PRESENCE OF CORONARY ANGIOPLASTY IMPLANT 08/05/2016 GABBIE MORALES MD, Ot D72.820 LYMPHOCYTOSIS (SYMPTOMATIC) 08/25/2016 GABBIE MORALES MD, Ot D72.820 LYMPHOCYTOSIS (SYMPTOMATIC) 09/02/2016 HIEN ALFARO, ESPERANZA ALFAROP CCDS Ot I49.5 SICK SINUS SYNDROME 09/05/2016 HIEN ROBINS FACC, ESPERANZA FACP CCDS Ot I49.5 SICK SINUS SYNDROME 09/05/[address] [facility], ALI FACP CCDS Ot D72.820 LYMPHOCYTOSIS (SYMPTOMATIC) 09/05/2016 HIEN ROBINS FACC, ALI FACP CCDS Ot E13.9 OTHER SPECIFIED DIABETES MELLITUS WITHOU 09/05/[address] [facility], ALI FACP CCDS Ot G47.33 OBSTRUCTIVE SLEEP APNEA (ADULT) (PEDIATR 09/05/[address] [facility], ALI FACP CCDS Ot I25.10 ATHSCL HEART DISEASE OF [place] CORONARY 09/05/2016 HIEN ALFARO, ESPERANZA FACP CCDS Ot I49.5 SICK SINUS SYNDROME 09/08/2016 ROSEMARY OVALLE DO Ot F31.9 BIPOLAR DISORDER, UNSPECIFIED 09/08/2016 ROSEMARY OVALLE DO Ot G47.33 OBSTRUCTIVE SLEEP APNEA (ADULT) (PEDIATR 09/08/2016 ROSEMARY OVALLE DO Ot J45.909 UNSPECIFIED ASTHMA, UNCOMPLICATED 09/08/2016 ROSEMARY OVALLE DO Ot R59.0 LOCALIZED ENLARGED LYMPH NODES 09/22/2016 GABBIE MORALES MD Ot D72.820 LYMPHOCYTOSIS (SYMPTOMATIC) 09/22/2016 GABBIE MORALES MD Ot E11.9 TYPE 2 DIABETES MELLITUS WITHOUT COMPLIC 09/22/2016 GABBIE MORALES MD Ot E66.01 MORBID (SEVERE) OBESITY DUE TO EXCESS CA 09/22/2016 GABBIE MORALES MD Ot E78.5 HYPERLIPIDEMIA, UNSPECIFIED 09/22/2016 GABBIE MORALES MD Ot E87.6 HYPOKALEMIA 09/22/2016 GABBIE MORALES MD Ot G47.30 SLEEP APNEA, UNSPECIFIED 09/22/2016 GABBIE MORALES MD Ot I10 ESSENTIAL (PRIMARY) HYPERTENSION 09/22/2016 GABBIE MORALES MD Ot I25.10 ATHSCL HEART DISEASE OF [place] CORONARY 09/22/2016 GABBIE MORALES MD Ot J44.9 CHRONIC OBSTRUCTIVE PULMONARY DISEASE, U 09/22/2016 GABBIE MORALES MD Ot Z68.43 BODY MASS INDEX (BMI) 50-59.9 , ADULT 09/22/2016 GABBIE MORALES MD Ot Z79.899 OTHER PERSONAL COUNSELOR (CURRENT) DRUG THERAPY 09/22/2016 CARMEN ROBINS, GABBIE Lam Ot Z95.5 PRESENCE OF CORONARY ANGIOPLASTY IMPLANT 09/27/2016 HIEN ALFARO, ALI FACP CCDS Ot D72.820 LYMPHOCYTOSIS (SYMPTOMATIC) 09/27/2016 HIEN ROBINS FACC, ALI FACP CCDS Ot E13.9 OTHER SPECIFIED DIABETES MELLITUS WITHOU 09/27/2016 HIEN ROBINS FACC, ALI FACP CCDS Ot G47.33 OBSTRUCTIVE SLEEP APNEA (ADULT) (PEDIATR 09/27/2016 HIEN ALFARO, ALI FACP CCDS Ot I25.10 ATHSCL HEART DISEASE OF [place] CORONARY 09/27/2016 HIEN ROBINS FACC, ALI FACP CCDS Ot I49.5 SICK SINUS SYNDROME 10/03/2016 ROSEMARY OVALLE DO Ot F31.9 BIPOLAR DISORDER, UNSPECIFIED 10/03/2016 ROSEMARY OVALLE DO Ot G47.33 OBSTRUCTIVE SLEEP APNEA (ADULT) (PEDIATR 10/03/2016 ROSEMARY OVALLE DO Ot J45.909 UNSPECIFIED ASTHMA, UNCOMPLICATED 10/03/2016 ROSEMARY OVALLE DO Ot R59.0 LOCALIZED ENLARGED LYMPH NODES 10/17/2016 ROSEMARY OVALLE DO Ot R59.0 LOCALIZED ENLARGED LYMPH NODES 10/17/2016 ROSEMARY OVALLE DO Ot Z01.818 ENCOUNTER FOR OTHER PREPROCEDURAL EXAMIN 10/18/2016 ROSEMARY OVALLE DO Ot R59.0 LOCALIZED ENLARGED LYMPH NODES 10/18/2016 ROSEMARY OVALLE DO Ot Z01.818 ENCOUNTER FOR OTHER PREPROCEDURAL EXAMIN 10/19/2016 ROSEMARY OVALLE DO Ot G47.33 OBSTRUCTIVE SLEEP APNEA (ADULT) (PEDIATR 10/19/2016 ROSEMARY OVALLE DO Ot J45.909 UNSPECIFIED ASTHMA, UNCOMPLICATED 10/19/2016 ROSEMARY OVALLE DO Ot R59.0 LOCALIZED ENLARGED LYMPH NODES 10/19/2016 ROSEMARY OVALLE DO Ot Z79.899 OTHER PERSONAL COUNSELOR (CURRENT) DRUG THERAPY 10/20/2016 ROSEMARY OVALLE DO Ot G47.33 OBSTRUCTIVE SLEEP APNEA (ADULT) (PEDIATR 10/20/2016 ROSEMARY OVALLE DO Ot J45.909 UNSPECIFIED ASTHMA, UNCOMPLICATED 10/20/2016 ROSEMARY OVALLE DO Ot R59.0 LOCALIZED ENLARGED LYMPH NODES 10/20/2016 ROSEMARY OVALLE DO Ot Z79.899 OTHER JAIL (CURRENT) DRUG THERAPY 11/02/2016 GABBIE MORALES MD, Ot D72.820 LYMPHOCYTOSIS (SYMPTOMATIC) 11/02/2016 GABBIE MORALES MD Ot E11.9 TYPE 2 DIABETES MELLITUS WITHOUT COMPLIC 11/02/2016 GABBIE MORALES MD, Ot E66.01 MORBID (SEVERE) OBESITY DUE TO EXCESS CA 11/02/2016 GABBIE MORALES MD, Ot E78.5 HYPERLIPIDEMIA, UNSPECIFIED 11/02/2016 GABBIE MORALES MD, Ot E87.6 HYPOKALEMIA 11/02/2016 GABBIE MORALES MD, Ot G47.30 SLEEP APNEA, UNSPECIFIED 11/02/2016 GABBIE MORALES MD, Ot I10 ESSENTIAL (PRIMARY) HYPERTENSION 11/02/2016 GABBIE MORALES MD, Ot I25.10 ATHSCL HEART DISEASE OF [place] CORONARY 11/02/2016 GABBIE MORALES MD, Ot J44.9 CHRONIC OBSTRUCTIVE PULMONARY DISEASE, U 11/02/2016 GABBIE MORALSE MD, Ot Z68.43 BODY MASS INDEX (BMI) 50-59.9 , ADULT 11/02/2016 GABBIE MORALES MD, Ot Z79.899 OTHER PERSONAL COUNSELOR (CURRENT) DRUG THERAPY 11/02/2016 GABBIE MORALES MD Ot Z95.5 PRESENCE OF CORONARY ANGIOPLASTY IMPLANT 11/03/2016 GABBIE MORALES MD, Ot D72.820 LYMPHOCYTOSIS (SYMPTOMATIC) 11/03/2016 GABBIE MORALES MD, Ot E11.9 TYPE 2 DIABETES MELLITUS WITHOUT COMPLIC 11/03/2016 GABBIE MORALES MD, Ot E66.01 MORBID (SEVERE) OBESITY DUE TO EXCESS CA 11/03/2016 GABBIE MORALES MD, Ot E78.5 HYPERLIPIDEMIA, UNSPECIFIED 11/03/2016 GABBIE MORALES MD, Ot E87.6 HYPOKALEMIA 11/03/2016 GABBIE MORALES MD, Ot G47.30 SLEEP APNEA, UNSPECIFIED 11/03/2016 GABBIE MORALES MD Ot I10 ESSENTIAL (PRIMARY) HYPERTENSION 11/03/2016 GABBIE MORALES MD Ot I25.10 ATHSCL HEART DISEASE OF [place] CORONARY 11/03/2016 GABBIE MORALES MD, Ot J44.9 CHRONIC OBSTRUCTIVE PULMONARY DISEASE, U 11/03/2016 GABBIE MORALES MD, Ot Z68.43 BODY MASS INDEX (BMI) 50-59.9 , ADULT 11/03/2016 GABBIE MORALES MD, Ot Z79.899 OTHER JAIL (CURRENT) DRUG THERAPY 11/03/2016 GABBIE MORALES MD Ot Z95.5 PRESENCE OF CORONARY ANGIOPLASTY IMPLANT 11/04/2016 GABBIE MORALES MD Ot D72.820 LYMPHOCYTOSIS (SYMPTOMATIC) 11/04/2016 GABBIE MORALES MD Ot E11.9 TYPE 2 DIABETES MELLITUS WITHOUT COMPLIC 11/04/2016 GABBIE MORALES MD, Ot E66.01 MORBID (SEVERE) OBESITY DUE TO EXCESS CA 11/04/2016 GABBIE MORALES MD, Ot E78.5 HYPERLIPIDEMIA, UNSPECIFIED 11/04/2016 GABBIE MORALES MD, Ot E87.6 HYPOKALEMIA 11/04/2016 GABBIE MORALES MD, Ot G47.30 SLEEP APNEA, UNSPECIFIED 11/04/2016 GABBIE MORALES MD Ot I10 ESSENTIAL (PRIMARY) HYPERTENSION 11/04/2016 GABBIE MORALES MD, Ot I25.10 ATHSCL HEART DISEASE OF [place] CORONARY 11/04/2016 GABBIE MORALES MD Ot J44.9 CHRONIC OBSTRUCTIVE PULMONARY DISEASE, U 11/04/2016 GABBIE MORALES MD Ot Z68.43 BODY MASS INDEX (BMI) 50-59.9 , ADULT 11/04/2016 GABBIE MORALES MD, Ot Z79.899 OTHER PERSONAL COUNSELOR (CURRENT) DRUG THERAPY 11/04/2016 GABBIE MORALES MD Ot Z95.5 PRESENCE OF CORONARY ANGIOPLASTY IMPLANT 11/24/2016 Ot 368.9 VISUAL DISTURBANCE NOS 11/24/2016 Ot 784.0 HEADACHE 11/24/2016 Ot 250.00 DIAB AILEEN WO COMPL, TYPE II OR UNSPEC TY 11/24/2016 Ot 369.9 VISUAL LOSS NOS 11/24/2016 Ot 433.10 CAROTID ARTERY OCCLUSION W O CEREBRAL IN 11/24/2016 NOEMI WASHBURN Ot 250.80 DIAB W OTH SPEC MANIFEST, TYPE II OR UNS 11/24/2016 NOEMI WASHBURN Ot 276.7 HYPERPOTASSEMIA 11/24/2016 NOEMI WASHBURN Ot 280.1 IRON DEF ANEMIA DIETARY 11/24/2016 NOEMI WASHBURN Ot 293.84 ANXIETY DISORDER IN CONDITIONS CLASSIFIE 11/24/2016 WU, NOEMI LIGHT CLEANER Ot 310.1 PERSONALITY CHANGE DUE TO CONDITIONS CLA 11/24/2016 NOEMI WASHBURNP Ot 327.23 OBSTRUCTIVE SLEEP APNEA (ADULT) (PEDIATR 11/24/2016 NOEMI WASHBURNP Ot 401.0 MALIGNANT HYPERTENSION 11/24/2016 NOEMI WASHBURNP Ot 414.00 CORON ATHEROSCLER NOS TYPE VESSEL, NATIV 11/24/2016 NOEMI WASHBURN Ot 719.41 JOINT PAIN-SHLDER 11/24/2016 NOEMI WASHBURNP Ot 780.93 MEMORY LOSS 11/24/2016 NOEMI WASHBURNP Ot 785.1 PALPITATIONS 11/24/2016 NOEMI WASHBURNP Ot 786.09 RESPIRATORY ABNORM NEC 11/24/2016 TREVOR SCHULZ DO Ot 250.90 DIAB W UNSPEC COMPL, TYPE II OR UNSPEC T 11/24/2016 TREVOR SCHULZ DO Ot 278.01 MORBID OBESITY 11/24/2016 TREVOR SCHULZ DO Ot 288.61 LYMPHOCYTOSIS (SYMPTOMATIC) 11/24/2016 TREVOR SCHULZ DO Ot 296.89 OTHER AND UNSPECIFIED BIPOLAR DISORDERS, 11/24/2016 TREVOR SCHULZ DO Ot 327.23 OBSTRUCTIVE SLEEP APNEA (ADULT) (PEDIATR 11/24/2016 TREVOR SCHULZ DO Ot 401.1 BENIGN HYPERTENSION 11/24/2016 TREVOR SCHULZ DO Ot 414.00 CORON ATHEROSCLER NOS TYPE VESSEL, NATIV 11/24/2016 TREVOR SCHULZ DO Ot V58.69 OT MED,LT,CURRENT USE 11/24/2016 ROSEMARY ROBINS, BRETT Hatch Ot V72.84 EXAM PRE-OPERATIVE NOS 11/24/2016 NOEMI WASHBURN Ot 729.81 SWELLING OF LIMB 11/24/2016 NOEMI WASHBURNP Ot 571.8 CHRONIC LIVER DIS NEC 11/24/2016 NOEMI WASHBURNP Ot 787.01 NAUSEA WITH VOMITING 11/24/2016 CARMEN ROBINS, GABBIE K Ot D72.820 LYMPHOCYTOSIS (SYMPTOMATIC) 11/24/2016 HIEN ROBINS FACBrady, ESPERANZA ANDERS CCDS Ot D72.820 LYMPHOCYTOSIS (SYMPTOMATIC) 11/24/2016 HIEN ROBINS FACBrady, ESPERANZA FACP CCDS Ot E13.9 OTHER SPECIFIED DIABETES MELLITUS WITHOU 11/24/[address] [facility], ALI DOMINICP CCDS Ot G47.33 OBSTRUCTIVE SLEEP APNEA (ADULT) (PEDIATR 11/24/[address] [facility], [facility] Ot I25.10 ATHSCL HEART DISEASE OF [place] CORONARY 11/24/[address] [facility], [facility] CCD[facility] Ot I49.5 SICK SINUS SYNDROME 11/24/2016 ROSEMARY OVALLE DO Ot F31.9 BIPOLAR DISORDER, UNSPECIFIED 11/24/2016 ROSEMARY OVALLE DO Ot G47.33 OBSTRUCTIVE SLEEP APNEA (ADULT) (PEDIATR 11/24/2016 ROSEMARY OVALEL DO Ot J45.909 UNSPECIFIED ASTHMA, UNCOMPLICATED 11/24/2016 ROSEMARY OVALLE DO Ot R59.0 LOCALIZED ENLARGED LYMPH NODES 11/24/2016 GABBIE MORALES MD Ot D72.820 LYMPHOCYTOSIS (SYMPTOMATIC) 11/24/2016 GABBIE MORALES MD Ot E11.9 TYPE 2 DIABETES MELLITUS WITHOUT COMPLIC 11/24/2016 GABBIE MORALES MD Ot E66.01 MORBID (SEVERE) OBESITY DUE TO EXCESS CA 11/24/2016 GABBIE MORALES MD Ot E78.5 HYPERLIPIDEMIA, UNSPECIFIED 11/24/2016 GABBIE MORALES MD Ot E87.6 HYPOKALEMIA 11/24/2016 GABBIE MORALES MD Ot G47.30 SLEEP APNEA, UNSPECIFIED 11/24/2016 GABBIE MORALES MD Ot I10 ESSENTIAL (PRIMARY) HYPERTENSION 11/24/2016 GABBIE MORALES MD Ot I25.10 ATHSCL HEART DISEASE OF [place] CORONARY 11/24/2016 GABIBE MORALES MD Ot J44.9 CHRONIC OBSTRUCTIVE PULMONARY DISEASE, U 11/24/2016 GABBIE MORALES MD Ot Z68.43 BODY MASS INDEX (BMI) 50-59.9 , ADULT 11/24/2016 GABBIE MORALES MD Ot Z79.899 OTHER JAIL (CURRENT) DRUG THERAPY 11/24/2016 GABBIE MORALES MD Ot Z95.5 PRESENCE OF CORONARY ANGIOPLASTY IMPLANT 11/24/2016 YURI EDWARDS DO, Ot C85.90 NON-[place] LYMPHOMA, UNSPECIFIED, UNSPE 11/24/2016 YURI EDWARDS DO, Ot Z01.818 ENCOUNTER FOR OTHER PREPROCEDURAL EXAMIN 11/24/2016 DELMAN DO, YURI B Ot Z11.2 ENCOUNTER FOR SCREENING FOR OTHER BACTER 11/25/2016 JERRY DO, YURI B Ot C85.90 NON-[place] LYMPHOMA, UNSPECIFIED, UNSPE 11/25/2016 JERRY DO, YURI B Ot Z01.818 ENCOUNTER FOR OTHER PREPROCEDURAL EXAMIN 11/25/2016 JERRY DO YURI B Ot Z11.2 ENCOUNTER FOR SCREENING FOR OTHER BACTER 11/28/2016 JERRY DO, YURI B Ot C85.90 NON-[place] LYMPHOMA, UNSPECIFIED, UNSPE 11/28/2016 JERRY DO, YURI B Ot E11.9 TYPE 2 DIABETES MELLITUS WITHOUT COMPLIC 11/28/2016 DELMAN DO, YURI B Ot I87.2 VENOUS INSUFFICIENCY (CHRONIC) (PERIPHER 11/29/2016 JERRY DO, YURI B Ot C85.90 NON-[place] LYMPHOMA, UNSPECIFIED, UNSPE 11/29/2016 ZAHIDAILDA DO, YURI B Ot E11.9 TYPE 2 DIABETES MELLITUS WITHOUT COMPLIC 11/29/2016 JERRY DO, YURI B Ot I87.2 VENOUS INSUFFICIENCY (CHRONIC) (PERIPHER 12/02/2016 JERRY DO, YURI B Ot C85.90 NON-[place] LYMPHOMA, UNSPECIFIED, UNSPE 12/02/2016 DELMAN DO, YURI B Ot E11.9 TYPE 2 DIABETES MELLITUS WITHOUT COMPLIC 12/02/2016 ZAHIDAMAN DO, YURI B Ot I87.2 VENOUS INSUFFICIENCY (CHRONIC) (PERIPHER 12/04/2016 JERRY DO, YURI B Ot C85.90 NON-[place] LYMPHOMA, UNSPECIFIED, UNSPE 12/04/2016 JERRY DO, YURI B Ot E11.9 TYPE 2 DIABETES MELLITUS WITHOUT COMPLIC 12/04/2016 JERRY DO, YURI B Ot I87.2 VENOUS INSUFFICIENCY (CHRONIC) (PERIPHER 12/20/2016 CARMEN ROBINS, GABBIE Lam Ot D72.820 LYMPHOCYTOSIS (SYMPTOMATIC) 12/20/2016 GABBIE MORALES MD Ot E11.9 TYPE 2 DIABETES MELLITUS WITHOUT COMPLIC 12/20/2016 GABBIE MORALES MD Ot E66.01 MORBID (SEVERE) OBESITY DUE TO EXCESS CA 12/20/2016 GABBIE MORALES MD Ot E78.5 HYPERLIPIDEMIA, UNSPECIFIED 12/20/2016 GABBIE MORALES MD Ot E87.6 HYPOKALEMIA 12/20/2016 GABBIE MORALES MD Ot G47.30 SLEEP APNEA, UNSPECIFIED 12/20/2016 GABBIE MORALES MD Ot I10 ESSENTIAL (PRIMARY) HYPERTENSION 12/20/2016 GABBIE MORALES MD, Ot I25.10 ATHSCL HEART DISEASE OF [place] CORONARY 12/20/2016 GABBIE MORALES MD, Ot J44.9 CHRONIC OBSTRUCTIVE PULMONARY DISEASE, U 12/20/2016 GABBIE MORALES MD, Ot Z68.43 BODY MASS INDEX (BMI) 50-59.9 , ADULT 12/20/2016 GABBIE MORALES MD, Ot Z79.899 OTHER JAIL (CURRENT) DRUG THERAPY 12/20/2016 GABBIE MORALES MD, Ot Z95.5 PRESENCE OF CORONARY ANGIOPLASTY IMPLANT 12/23/2016 LUKE MCMANUS MD, Ot E66.01 MORBID (SEVERE) OBESITY DUE TO EXCESS CA 12/23/2016 LUKE MCMANUS MD, Ot K21.9 GASTRO-ESOPHAGEAL REFLUX DISEASE WITHOUT 12/23/2016 LUKE MCMANUS MD, Ot K44.9 DIAPHRAGMATIC HERNIA WITHOUT OBSTRUCTION 12/23/2016 ULKE MCMANUS MD, Ot E66.01 MORBID (SEVERE) OBESITY DUE TO EXCESS CA 12/23/2016 LUKE MCMANUS MD, Ot K21.9 GASTRO-ESOPHAGEAL REFLUX DISEASE WITHOUT 12/23/2016 LUKE MCMANUS MD, Ot K44.9 DIAPHRAGMATIC HERNIA WITHOUT OBSTRUCTION 01/12/2017 Ot 368.9 VISUAL DISTURBANCE NOS 01/12/2017 Ot 784.0 HEADACHE 01/12/2017 Ot 250.00 DIAB AILEEN WO COMPL, TYPE II OR UNSPEC TY 01/12/2017 Ot 369.9 VISUAL LOSS NOS 01/12/2017 Ot 433.10 CAROTID ARTERY OCCLUSION W O CEREBRAL IN 01/12/2017 NOEMI WASHBURN Ot 250.80 DIAB W OTH SPEC MANIFEST, TYPE II OR UNS 01/12/2017 NOEMI WASHBURN Ot 276.7 HYPERPOTASSEMIA 01/12/2017 NOEMI WASHBURN Ot 280.1 IRON DEF ANEMIA DIETARY 01/12/2017 NOEMI WASHBURN Ot 293.84 ANXIETY DISORDER IN CONDITIONS CLASSIFIE 01/12/2017 NOEMI WASHBURN Ot 310.1 PERSONALITY CHANGE DUE TO CONDITIONS CLA 01/12/2017 NOEMI WASHBURN Ot 327.23 OBSTRUCTIVE SLEEP APNEA (ADULT) (PEDIATR 01/12/2017 NOEMI WASHBURN Ot 401.0 MALIGNANT HYPERTENSION 01/12/2017 NOEMI WASHBURN Ot 414.00 CORON ATHEROSCLER NOS TYPE VESSEL, NATIV 01/12/2017 NOEMI WASHBURN Ot 719.41 JOINT PAIN-SHLDER 01/12/2017 NOEMI WASHBURNP Ot 780.93 MEMORY LOSS 01/12/2017 NOEMI WASHBURN Ot 785.1 PALPITATIONS 01/12/2017 NOEMI WASHBURNP Ot 786.09 RESPIRATORY ABNORM NEC 01/12/2017 LURDES SCHULZ DOA K Ot 250.90 DIAB W UNSPEC COMPL, TYPE II OR UNSPEC T 01/12/2017 TREVOR SCHULZ DO K Ot 278.01 MORBID OBESITY 01/12/2017 TREVOR SCHULZ DO K Ot 288.61 LYMPHOCYTOSIS (SYMPTOMATIC) 01/12/2017 TREVOR SCHULZ DO K Ot 296.89 OTHER AND UNSPECIFIED BIPOLAR DISORDERS, 01/12/2017 TREVOR SCHULZ DO Ot 327.23 OBSTRUCTIVE SLEEP APNEA (ADULT) (PEDIATR 01/12/2017 LURDES SCHULZ DOA K Ot 401.1 BENIGN HYPERTENSION 01/12/2017 TREVOR SCHULZ DO K Ot 414.00 CORON ATHEROSCLER NOS TYPE VESSEL, NATIV 01/12/2017 TREVOR SCHULZ DO Ot V58.69 OTH MED,LT,CURRENT USE 01/12/2017 ROSEMARY ROBINS, BRETT Hatch Ot V72.84 EXAM PRE-OPERATIVE NOS 01/12/2017 NOEMI WASHBURN Ot 729.81 SWELLING OF LIMB 01/12/2017 NOEMI WASHBURNP Ot 571.8 CHRONIC LIVER DIS NEC 01/12/2017 NOEMI WASHBURNP Ot 787.01 NAUSEA WITH VOMITING 01/12/2017 CARMEN ROBINS, GABBIE K Ot D72.820 LYMPHOCYTOSIS (SYMPTOMATIC) 01/12/2017 HIEN ROBINS FACC, ESPERANZA ALFAROP CCDS Ot D72.820 LYMPHOCYTOSIS (SYMPTOMATIC) 01/12/2017 HIEN ROBINS FACC, ESPERANZA FACP CCDS Ot E13.9 OTHER SPECIFIED DIABETES MELLITUS WITHOU 01/12/2017 HIEN ROBINS FACC, ALI FACP CCDS Ot G47.33 OBSTRUCTIVE SLEEP APNEA (ADULT) (PEDIATR 01/12/2017 HIEN ALFAROC, [facility] CCDS Ot I25.10 ATHSCL HEART DISEASE OF [place] CORONARY 01/12/[address] [facility], [facility] CCDS Ot I49.5 SICK SINUS SYNDROME 01/12/2017 ROSEMARY OVALLE DO Ot F31.9 BIPOLAR DISORDER, UNSPECIFIED 01/12/2017 ROSEMARY OVALLE DO Ot G47.33 OBSTRUCTIVE SLEEP APNEA (ADULT) (PEDIATR 01/12/2017 ROSEMARY OVALLE DO Ot J45.909 UNSPECIFIED ASTHMA, UNCOMPLICATED 01/12/2017 ROSEMARY OVALLE DO Ot R59.0 LOCALIZED ENLARGED LYMPH NODES 01/12/2017 GABBIE MORALES MD Ot D72.820 LYMPHOCYTOSIS (SYMPTOMATIC) 01/12/2017 GABBIE MORALES MD Ot E11.9 TYPE 2 DIABETES MELLITUS WITHOUT COMPLIC 01/12/2017 GABBIE MORALES MD Ot E66.01 MORBID (SEVERE) OBESITY DUE TO EXCESS CA 01/12/2017 GABBEI MORALES MD Ot E78.5 HYPERLIPIDEMIA, UNSPECIFIED 01/12/2017 GABBIE MORALES MD Ot E87.6 HYPOKALEMIA 01/12/2017 GABBIE MORALES MD Ot G47.30 SLEEP APNEA, UNSPECIFIED 01/12/2017 GABBIE MORALES MD Ot I10 ESSENTIAL (PRIMARY) HYPERTENSION 01/12/2017 GABBIE MORALES MD Ot I25.10 ATHSCL HEART DISEASE OF [place] CORONARY 01/12/2017 GABBIE MORALES MD Ot J44.9 CHRONIC OBSTRUCTIVE PULMONARY DISEASE, U 01/12/2017 GABBIE MORALES MD Ot Z68.43 BODY MASS INDEX (BMI) 50-59.9 , ADULT 01/12/2017 GABBIE MORALES MD Ot Z79.899 OTHER PERSONAL COUNSELOR (CURRENT) DRUG THERAPY 01/12/2017 GABBIE MORALES MD Ot Z95.5 PRESENCE OF CORONARY ANGIOPLASTY IMPLANT 01/12/2017 LUKE MCMANUS MD Ot E66.01 MORBID (SEVERE) OBESITY DUE TO EXCESS CA 01/12/2017 LUKE MCMANUS MD Ot K21.9 GASTRO-ESOPHAGEAL REFLUX DISEASE WITHOUT 01/12/2017 LUKE MCMANUS MD Ot K44.9 DIAPHRAGMATIC HERNIA WITHOUT OBSTRUCTION 01/12/2017 ART ROSARIO APRN Ot G47.34 IDIO SLEEP RELATED NONOBSTRUCTIVE ALVEOL 01/13/2017 ART ROSARIO APRN Ot 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 LYMPHOCYTIC LEUK OF B-CELL TYPE 01/13/2017 ART ROSARIO APRN Ot G40.909 EPILEPSY, UNSP, NOT INTRACTABLE, WITHOUT 01/13/2017 ART ROSARIO APRN Ot G47.33 OBSTRUCTIVE SLEEP APNEA (ADULT) (PEDIATR 01/13/2017 ART ROSARIO APRN Ot G47.34 IDIO SLEEP RELATED NONOBSTRUCTIVE ALVEOL 01/13/2017 ART ROSARIO APRN Ot J44.9 CHRONIC OBSTRUCTIVE PULMONARY DISEASE, U 01/13/2017 LUKE MCMANUS MD, Ot E66.01 MORBID (SEVERE) OBESITY DUE TO EXCESS CA 01/13/2017 LUKE MCMANUS MD, Ot K21.9 GASTRO-ESOPHAGEAL REFLUX DISEASE WITHOUT 01/13/2017 LUKE MCMANUS MD, Ot K44.9 DIAPHRAGMATIC HERNIA WITHOUT OBSTRUCTION 02/01/2017 GABBIE MORALES MD, Ot D72.820 LYMPHOCYTOSIS (SYMPTOMATIC) 02/01/2017 GABBIE MORALES MD, Ot E11.9 TYPE 2 DIABETES MELLITUS WITHOUT COMPLIC 02/01/2017 GABBIE MORALES MD, Ot E66.01 MORBID (SEVERE) OBESITY DUE TO EXCESS CA 02/01/2017 GABBIE MORALES MD, Ot E78.5 HYPERLIPIDEMIA, UNSPECIFIED 02/01/2017 GABBIE MORALES MD, Ot E87.6 HYPOKALEMIA 02/01/2017 GABBIE MORALES MD, Ot G47.30 SLEEP APNEA, UNSPECIFIED 02/01/2017 GABBIE MORALES MD Ot I10 ESSENTIAL (PRIMARY) HYPERTENSION 02/01/2017 GABBIE MORALES MD, Ot I25.10 ATHSCL HEART DISEASE OF [place] CORONARY 02/01/2017 GABBIE MORALES MD, Ot J44.9 CHRONIC OBSTRUCTIVE PULMONARY DISEASE, U 02/01/2017 GABBIE MORALES MD, Ot Z68.43 BODY MASS INDEX (BMI) 50-59.9 , ADULT 02/01/2017 GABBIE MORALES MD, Ot Z79.899 OTHER JAIL (CURRENT) DRUG THERAPY 02/01/2017 GABBIE MORALES MD, Ot Z95.5 PRESENCE OF CORONARY ANGIOPLASTY IMPLANT 02/03/2017 LYUDMILA PALENCIA MD, Ot D72.820 LYMPHOCYTOSIS (SYMPTOMATIC) 02/03/2017 LYUDMILA PALENCIA MD, Ot E11.9 TYPE 2 DIABETES MELLITUS WITHOUT COMPLIC 02/03/2017 LYUDMILA PALENCIA MD Ot E66.01 MORBID (SEVERE) OBESITY DUE TO EXCESS CA 02/03/2017 LYUDMILA PALENCIA MD, Ot E78.5 HYPERLIPIDEMIA, UNSPECIFIED 02/03/2017 LYUDMILA PALENCIA MD Ot E87.6 HYPOKALEMIA 02/03/2017 LYUDMILA PALENCIA MD, Ot G47.30 SLEEP APNEA, UNSPECIFIED 02/03/2017 LYUDMILA PALENCIA MD Ot I10 ESSENTIAL (PRIMARY) HYPERTENSION 02/03/2017 LYUDMILA PALENCIA MD, Ot I25.10 ATHSCL HEART DISEASE OF [place] CORONARY 02/03/2017 LYUDMILA PALENCIA MD, Ot J44.9 CHRONIC OBSTRUCTIVE PULMONARY DISEASE, U 02/03/2017 LYUDMILA PALENCIA MD, Ot Z68.43 BODY MASS INDEX (BMI) 50-59.9 , ADULT 02/03/2017 LYUDMILA PALENCIA MD, Ot Z79.899 OTHER PERSONAL COUNSELOR (CURRENT) DRUG THERAPY 02/03/2017 LYUDMILA PALENCIA MD, Ot Z95.5 PRESENCE OF CORONARY ANGIOPLASTY IMPLANT 02/07/2017 GABBIE MORALES MD Ot D72.820 LYMPHOCYTOSIS (SYMPTOMATIC) 02/07/2017 GABBIE MORALES MD Ot E11.9 TYPE 2 DIABETES MELLITUS WITHOUT COMPLIC 02/07/2017 GABBIE MORALES MD, Ot E66.01 MORBID (SEVERE) OBESITY DUE TO EXCESS CA 02/07/2017 GABBIE MORALES MD, Ot E78.5 HYPERLIPIDEMIA, UNSPECIFIED 02/07/2017 GABBIE MORALES MD Ot E87.6 HYPOKALEMIA 02/07/2017 GABBIE MORALES MD Ot G47.30 SLEEP APNEA, UNSPECIFIED 02/07/2017 GABBIE MORALES MD Ot I10 ESSENTIAL (PRIMARY) HYPERTENSION 02/07/2017 GABBIE MORALES MD Ot I25.10 ATHSCL HEART DISEASE OF [place] CORONARY 02/07/2017 GABBIE MORALES MD Ot J44.9 CHRONIC OBSTRUCTIVE PULMONARY DISEASE, U 02/07/2017 GABBIE MORALES MD Ot Z68.43 BODY MASS INDEX (BMI) 50-59.9 , ADULT 02/07/2017 GABBIE MORALES MD Ot Z79.899 OTHER JAIL (CURRENT) DRUG THERAPY 02/07/2017 GABBIE MORALES MD Ot Z95.5 PRESENCE OF CORONARY ANGIOPLASTY IMPLANT 04/26/2017 LYUDMILA PALENCIA MD, Ot D72.820 LYMPHOCYTOSIS (SYMPTOMATIC) 04/26/2017 LYUDMILA PALENCIA MD Ot E11.9 TYPE 2 DIABETES MELLITUS WITHOUT COMPLIC 04/26/2017 LYUDMILA PALENCIA MD, Ot E66.01 MORBID (SEVERE) OBESITY DUE TO EXCESS CA 04/26/2017 LYUDMILA PALENCIA MD, Ot E78.5 HYPERLIPIDEMIA, UNSPECIFIED 04/26/2017 LYUDMILA PALENCIA MD, Ot E87.6 HYPOKALEMIA 04/26/2017 LYUDMILA PALENCIA MD, Ot G47.30 SLEEP APNEA, UNSPECIFIED 04/26/2017 LYUDMILA PALENCIA MD Ot I10 ESSENTIAL (PRIMARY) HYPERTENSION 04/26/2017 LYUDMILA PALENCIA MD, Ot I25.10 ATHSCL HEART DISEASE OF [place] CORONARY 04/26/2017 LYUDMILA PALENCIA MD, Ot J44.9 CHRONIC OBSTRUCTIVE PULMONARY DISEASE, U 04/26/2017 LYUDMILA PALENCIA MD, Ot Z68.43 BODY MASS INDEX (BMI) 50-59.9 , ADULT 04/26/2017 LYUDMILA PALENCIA MD, Ot Z79.899 OTHER JAIL (CURRENT) DRUG THERAPY 04/26/2017 LYUDMILA PALENCIA MD, Ot Z95.5 PRESENCE OF CORONARY ANGIOPLASTY IMPLANT 04/26/2017 LYUDMILA PALENCIA MD, Ot D72.820 LYMPHOCYTOSIS (SYMPTOMATIC) 04/26/2017 LYUDMILA PALENCIA MD, Ot E11.9 TYPE 2 DIABETES MELLITUS WITHOUT COMPLIC 04/26/2017 LYUDMILA PALENCIA MD, Ot E66.01 MORBID (SEVERE) OBESITY DUE TO EXCESS CA 04/26/2017 LYUDMILA PALENCIA MD, Ot E78.5 HYPERLIPIDEMIA, UNSPECIFIED 04/26/2017 LYUDMILA PALENCIA MD Ot E87.6 HYPOKALEMIA 04/26/2017 LYUDMILA PALENCIA MD, Ot G47.30 SLEEP APNEA, UNSPECIFIED 04/26/2017 LYUDMILA PALENCIA MD Ot I10 ESSENTIAL (PRIMARY) HYPERTENSION 04/26/2017 LYUDMILA PALENCIA MD Ot I25.10 ATHSCL HEART DISEASE OF [place] CORONARY 04/26/2017 LYUDMILA PALENCIA MD Ot J44.9 CHRONIC OBSTRUCTIVE PULMONARY DISEASE, U 04/26/2017 LYUDMILA PALENCIA MD, Ot Z68.43 BODY MASS INDEX (BMI) 50-59.9 , ADULT 04/26/2017 LYUDMILA PALENCIA MD, Ot Z79.899 OTHER PERSONAL COUNSELOR (CURRENT) DRUG THERAPY 04/26/2017 LYUDMILA PALENCIA MD, Ot Z95.5 PRESENCE OF CORONARY ANGIOPLASTY IMPLANT 05/03/2017 LYUDMILA PALENCIA MD, Ot D72.820 LYMPHOCYTOSIS (SYMPTOMATIC) 05/03/2017 LYUDMILA PALENCIA MD, Ot E11.9 TYPE 2 DIABETES MELLITUS WITHOUT COMPLIC 05/03/2017 LYUDMILA PALENCIA MD, Ot E66.01 MORBID (SEVERE) OBESITY DUE TO EXCESS CA 05/03/2017 LYUDMILA PALENCIA MD, Ot E78.5 HYPERLIPIDEMIA, UNSPECIFIED 05/03/2017 LYUDMILA PALENCIA MD, Ot E87.6 HYPOKALEMIA 05/03/2017 LYUDMILA PALENCIA MD Ot G47.30 SLEEP APNEA, UNSPECIFIED 05/03/2017 LYUDMILA PALENCIA MD Ot I10 ESSENTIAL (PRIMARY) HYPERTENSION 05/03/2017 LYUDMILA PALENCIA MD, Ot I25.10 ATHSCL HEART DISEASE OF [place] CORONARY 05/03/2017 LYUDMILA PALENCIA MD, Ot J44.9 CHRONIC OBSTRUCTIVE PULMONARY DISEASE, U 05/03/2017 LYUDMILA PALENCIA MD, Ot Z68.43 BODY MASS INDEX (BMI) 50-59.9 , ADULT 05/03/2017 LYUDMILA PALENCIA MD, Ot Z79.899 OTHER PERSONAL COUNSELOR (CURRENT) DRUG THERAPY 05/03/2017 LYUDMILA PALENCIA MD Ot Z95.5 PRESENCE OF CORONARY ANGIOPLASTY IMPLANT 05/18/2017 LYUDMILA PALENCIA MD, Ot D72.820 LYMPHOCYTOSIS (SYMPTOMATIC) 05/18/2017 LYUDMILA PALENCIA MD, Ot E11.9 TYPE 2 DIABETES MELLITUS WITHOUT COMPLIC 05/18/2017 LYUDMILA PALENCIA MD Ot E66.01 MORBID (SEVERE) OBESITY DUE TO EXCESS CA 05/18/2017 LYUDMILA PALENCIA MD Ot E78.5 HYPERLIPIDEMIA, UNSPECIFIED 05/18/2017 LYUDMILA PALENCIA MD Ot E87.6 HYPOKALEMIA 05/18/2017 LYUDMILA PALENCIA MD Ot G47.30 SLEEP APNEA, UNSPECIFIED 05/18/2017 LYUDMILA PALENCIA MD Ot I10 ESSENTIAL (PRIMARY) HYPERTENSION 05/18/2017 LYUDMILA PALENCIA MD Ot I25.10 ATHSCL HEART DISEASE OF [place] CORONARY 05/18/2017 LYUDMILA PALENCIA MD, Ot J44.9 CHRONIC OBSTRUCTIVE PULMONARY DISEASE, U 05/18/2017 LYUDMILA PALENCIA MD, Ot Z68.43 BODY MASS INDEX (BMI) 50-59.9 , ADULT 05/18/2017 LYUDMILA PALENCIA MD, Ot Z79.899 OTHER JAIL (CURRENT) DRUG THERAPY 05/18/2017 LYUDMILA PALENCIA MD Ot Z95.5 PRESENCE OF CORONARY ANGIOPLASTY IMPLANT 06/16/2017 LYUDMILA PALENCIA MD, Ot 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 LYMPHOCYTIC LEUK OF B-CELL TYPE 06/16/2017 LYUDMILA PALENCIA MD Ot E11.9 TYPE 2 DIABETES MELLITUS WITHOUT COMPLIC 06/16/2017 LYUDMILA PALENCIA MD, Ot E66.01 MORBID (SEVERE) OBESITY DUE TO EXCESS CA 06/16/2017 LYUDMILA PALENCIA MD Ot E78.5 HYPERLIPIDEMIA, UNSPECIFIED 06/16/2017 LYUDMILA PALENCIA MD Ot E87.6 HYPOKALEMIA 06/16/2017 LYUDMILA PALENCIA MD Ot G47.30 SLEEP APNEA, UNSPECIFIED 06/16/2017 LYUDMILA PALENCIA MD Ot I10 ESSENTIAL (PRIMARY) HYPERTENSION 06/16/2017 LYUDMILA PALENCIA MD, Ot I25.10 ATHSCL HEART DISEASE OF [place] CORONARY 06/16/2017 LYUDMILA PALENCIA MD, Ot J44.9 CHRONIC OBSTRUCTIVE PULMONARY DISEASE, U 06/16/2017 LYUDMILA PALENCIA MD, Ot Z68.43 BODY MASS INDEX (BMI) 50-59.9 , ADULT 06/16/2017 LYUDMILA PALENCIA MD, Ot Z79.899 OTHER PERSONAL COUNSELOR (CURRENT) DRUG THERAPY 06/16/2017 LYUDMILA PALENCIA MD Ot Z95.5 PRESENCE OF CORONARY ANGIOPLASTY IMPLANT 06/24/2017 LYUDMILA PALENCIA MD, Ot 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 LYMPHOCYTIC LEUK OF B-CELL TYPE 06/24/2017 LYUDMILA PALENCIA MD Ot E11.9 TYPE 2 DIABETES MELLITUS WITHOUT COMPLIC 06/24/2017 LYUDMILA PALENCIA MD Ot E66.01 MORBID (SEVERE) OBESITY DUE TO EXCESS CA 06/24/2017 LYUDMILA PALENCIA MD Ot E78.5 HYPERLIPIDEMIA, UNSPECIFIED 06/24/2017 LYUDMILA PALENCIA MD Ot E87.6 HYPOKALEMIA 06/24/2017 LYUDMILA PALENCIA MD, Ot G47.30 SLEEP APNEA, UNSPECIFIED 06/24/2017 LYUDMILA PALENCIA MD Ot I10 ESSENTIAL (PRIMARY) HYPERTENSION 06/24/2017 LYUDMILA PALENCIA MD Ot I25.10 ATHSCL HEART DISEASE OF [place] CORONARY 06/24/2017 LYUDMILA PALENCIA MD, Ot J44.9 CHRONIC OBSTRUCTIVE PULMONARY DISEASE, U 06/24/2017 LYUDMILA PALENCIA MD, Ot Z68.43 BODY MASS INDEX (BMI) 50-59.9 , ADULT 06/24/2017 LYUDMILA PALENCIA MD, Ot Z79.899 OTHER PERSONAL COUNSELOR (CURRENT) DRUG THERAPY 06/24/2017 LYUMDILA PALENCIA MD, Ot Z95.5 PRESENCE OF CORONARY ANGIOPLASTY IMPLANT 06/30/2017 LYUDMILA PALENCIA MD Ot 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 LYMPHOCYTIC LEUK OF B-CELL TYPE 06/30/2017 LYUDMILA PALENCIA MD Ot E11.9 TYPE 2 DIABETES MELLITUS WITHOUT COMPLIC 06/30/2017 LYUDMILA PALENCIA MD, Ot E66.01 MORBID (SEVERE) OBESITY DUE TO EXCESS CA 06/30/2017 LYUDMILA PALENCIA MD Ot E78.5 HYPERLIPIDEMIA, UNSPECIFIED 06/30/2017 LYUDMILA PALENCIA MD, Ot E87.6 HYPOKALEMIA 06/30/2017 LYUDMILA PALENCIA MD, Ot G47.30 SLEEP APNEA, UNSPECIFIED 06/30/2017 LYUDMILA PALENCIA MD Ot I10 ESSENTIAL (PRIMARY) HYPERTENSION 06/30/2017 LYUDMILA PALENCIA MD, Ot I25.10 ATHSCL HEART DISEASE OF [place] CORONARY 06/30/2017 LYUDMILA PALENCIA MD, Ot J44.9 CHRONIC OBSTRUCTIVE PULMONARY DISEASE, U 06/30/2017 LYUDMILA PALENCIA MD, Ot Z68.43 BODY MASS INDEX (BMI) 50-59.9 , ADULT 06/30/2017 LYUDMILA PALENCIA MD, Ot Z79.899 OTHER JAIL (CURRENT) DRUG THERAPY 06/30/2017 LYUDMILA PALENCIA MD Ot Z95.5 PRESENCE OF CORONARY ANGIOPLASTY IMPLANT 06/30/2017 LUKE MCMANUS MD Ot E66.01 MORBID (SEVERE) OBESITY DUE TO EXCESS CA 06/30/2017 LUKE MCMANUS MD, Ot K21.9 GASTRO-ESOPHAGEAL REFLUX DISEASE WITHOUT 06/30/2017 LUKE MCMANUS MD, Ot K44.9 DIAPHRAGMATIC HERNIA WITHOUT OBSTRUCTION 06/30/2017 LYUDMILA PALENCIA MD, Ot 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 LYMPHOCYTIC LEUK OF B-CELL TYPE 06/30/2017 LYUDMILA PALENCIA MD Ot E11.9 TYPE 2 DIABETES MELLITUS WITHOUT COMPLIC 06/30/2017 LYUDMILA PALENCIA MD, Ot E66.01 MORBID (SEVERE) OBESITY DUE TO EXCESS CA 06/30/2017 LYUDMILA PALENCIA MD, Ot E78.5 HYPERLIPIDEMIA, UNSPECIFIED 06/30/2017 LYUDMILA PALENCIA MD, Ot E87.6 HYPOKALEMIA 06/30/2017 LYUDMILA PALENCIA MD, Ot G47.30 SLEEP APNEA, UNSPECIFIED 06/30/2017 LYUDMILA PALENCIA MD Ot I10 ESSENTIAL (PRIMARY) HYPERTENSION 06/30/2017 LYUDMILA PALENCIA MD, Ot I25.10 ATHSCL HEART DISEASE OF [place] CORONARY 06/30/2017 LYUDMILA PAELNCIA MD Ot J44.9 CHRONIC OBSTRUCTIVE PULMONARY DISEASE, U 06/30/2017 LYUDMILA PALENCIA MD, Ot Z68.43 BODY MASS INDEX (BMI) 50-59.9 , ADULT 06/30/2017 LYUDMILA PALENCIA MD, Ot Z79.899 OTHER PERSONAL COUNSELOR (CURRENT) DRUG THERAPY 06/30/2017 LYUDMILA PALENCIA MD, Ot Z95.5 PRESENCE OF CORONARY ANGIOPLASTY IMPLANT 06/30/2017 Ot 368.9 VISUAL DISTURBANCE NOS 06/30/2017 Ot 784.0 HEADACHE 06/30/2017 Ot 250.00 DIAB AILEEN WO COMPL, TYPE II OR UNSPEC TY 06/30/2017 Ot 369.9 VISUAL LOSS NOS 06/30/2017 Ot 433.10 CAROTID ARTERY OCCLUSION W O CEREBRAL IN 06/30/2017 NOEMI WASHBURN Ot 250.80 DIAB W OTH SPEC MANIFEST, TYPE II OR UNS 06/30/2017 NOEMI WASHBURN Ot 276.7 HYPERPOTASSEMIA 06/30/2017 NOEMI WASHBURN Ot 280.1 IRON DEF ANEMIA DIETARY 06/30/2017 NOEMI WASHBURN Ot 293.84 ANXIETY DISORDER IN CONDITIONS CLASSIFIE 06/30/2017 NOEMI WASHBURN Ot 310.1 PERSONALITY CHANGE DUE TO CONDITIONS CLA 06/30/2017 NOEMI WASHBURN Ot 327.23 OBSTRUCTIVE SLEEP APNEA (ADULT) (PEDIATR 06/30/2017 NOEMI WASHBURNP Ot 401.0 MALIGNANT HYPERTENSION 06/30/2017 NOEMI WASHBURNP Ot 414.00 CORON ATHEROSCLER NOS TYPE VESSEL, NATIV 06/30/2017 NOEMI WASHBURN Ot 719.41 JOINT PAIN-SHLDER 06/30/2017 NOEMI WASHBURNP Ot 780.93 MEMORY LOSS 06/30/2017 NOEMI WASHBURN Ot 785.1 PALPITATIONS 06/30/2017 NOEMI WASHBURN Ot 786.09 RESPIRATORY ABNORM NEC 06/30/2017 TREVOR SCHULZ DO Ot 250.90 DIAB W UNSPEC COMPL, TYPE II OR UNSPEC T 06/30/2017 TREVOR SCHULZ DO Ot 278.01 MORBID OBESITY 06/30/2017 TREVOR SCHULZ DO Ot 288.61 LYMPHOCYTOSIS (SYMPTOMATIC) 06/30/2017 TREVOR SCHULZ DO Ot 296.89 OTHER AND UNSPECIFIED BIPOLAR DISORDERS, 06/30/2017 TREVOR SCHULZ DO Ot 327.23 OBSTRUCTIVE SLEEP APNEA (ADULT) (PEDIATR 06/30/2017 TREVOR SCHULZ DO Ot 401.1 BENIGN HYPERTENSION 06/30/2017 TREVOR SCHULZ DO Ot 414.00 CORON ATHEROSCLER NOS TYPE VESSEL, NATIV 06/30/2017 TREVOR SCHULZ DO Ot V58.69 OT MED,LT,CURRENT USE 06/30/2017 ROSEMARY ROBINS, BRETT Hatch Ot V72.84 EXAM PRE-OPERATIVE NOS 06/30/2017 NOEMI WASHBURN Ot 729.81 SWELLING OF LIMB 06/30/2017 NOEMI WASHBURN Ot 571.8 CHRONIC LIVER DIS NEC 06/30/2017 NOEMI WASHBURN Ot 787.01 NAUSEA WITH VOMITING 06/30/2017 CARMEN ROBINS, GABBIE Lam Ot D72.820 LYMPHOCYTOSIS (SYMPTOMATIC) 06/30/2017 HIEN ROBINS FACC, ESPERANZA ANDERS CCDS Ot D72.820 LYMPHOCYTOSIS (SYMPTOMATIC) 06/30/2017 HIEN ROBINS FACC, ESPERANZA ANDERS CCDS Ot E13.9 OTHER SPECIFIED DIABETES MELLITUS WITHOU 06/30/[address] [facility], ESPERANZA ALFAROP CCDS Ot G47.33 OBSTRUCTIVE SLEEP APNEA (ADULT) (PEDIATR 06/30/[address] [facility], ESPERANZA ALFAROP CCDS Ot I25.10 ATHSCL HEART DISEASE OF [place] CORONARY 06/30/[address] [facility], ESPERANZA ALFAROP CCDS Ot I49.5 SICK SINUS SYNDROME 06/30/2017 ROSEMARY OVALLE DO Ot F31.9 BIPOLAR DISORDER, UNSPECIFIED 06/30/2017 ROSEMARY OVALLE DO Ot G47.33 OBSTRUCTIVE SLEEP APNEA (ADULT) (PEDIATR 06/30/2017 ROSEMARY OVALLE DO Ot J45.909 UNSPECIFIED ASTHMA, UNCOMPLICATED 06/30/2017 ROSEMARY OVALLE DO Ot R59.0 LOCALIZED ENLARGED LYMPH NODES 06/30/2017 LUKE MCMANUS MD, Ot E66.01 MORBID (SEVERE) OBESITY DUE TO EXCESS CA 06/30/2017 LUKE MCMANUS MD Ot K21.9 GASTRO-ESOPHAGEAL REFLUX DISEASE WITHOUT 06/30/2017 LUKE MCMANUS MD, Ot K44.9 DIAPHRAGMATIC HERNIA WITHOUT OBSTRUCTION 06/30/2017 LYUDMILA PALENCIA MD, Ot 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 LYMPHOCYTIC LEUK OF B-CELL TYPE 06/30/2017 LYUDMILA PALENCIA MD, Ot E11.9 TYPE 2 DIABETES MELLITUS WITHOUT COMPLIC 06/30/2017 LYUDMILA PALENCIA MD, Ot E66.01 MORBID (SEVERE) OBESITY DUE TO EXCESS CA 06/30/2017 LYUDMILA PALENCIA MD Ot E78.5 HYPERLIPIDEMIA, UNSPECIFIED 06/30/2017 LYUDMILA PALENCIA MD, Ot E87.6 HYPOKALEMIA 06/30/2017 LYUDMILA PALENCIA MD, Ot G47.30 SLEEP APNEA, UNSPECIFIED 06/30/2017 LYUDMILA PALENCIA MD, Ot I10 ESSENTIAL (PRIMARY) HYPERTENSION 06/30/2017 LYUDMILA PALENCIA MD, Ot I25.10 ATHSCL HEART DISEASE OF [place] CORONARY 06/30/2017 LYUDMILA PALENCIA MD, Ot J44.9 CHRONIC OBSTRUCTIVE PULMONARY DISEASE, U 06/30/2017 LYUDMILA PALENCIA MD, Ot Z68.43 BODY MASS INDEX (BMI) 50-59.9 , ADULT 06/30/2017 LYUDMILA PALENCIA MD, Ot Z79.899 OTHER PERSONAL COUNSELOR (CURRENT) DRUG THERAPY 06/30/2017 LYUDMILA PALENCIA MD, Ot Z95.5 PRESENCE OF CORONARY ANGIOPLASTY IMPLANT 08/14/2017 LUKE MCMANUS MD, Ot E66.01 MORBID (SEVERE) OBESITY DUE TO EXCESS CA 08/14/2017 LUKE MCMANUS MD, Ot K21.9 GASTRO-ESOPHAGEAL REFLUX DISEASE WITHOUT 08/14/2017 LUKE MCMANUS MD, Ot K44.9 DIAPHRAGMATIC HERNIA WITHOUT OBSTRUCTION 08/18/2017 LYUDMILA PALENCIA MD, Ot 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 LYMPHOCYTIC LEUK OF B-CELL TYPE 08/18/2017 LYUDMILA PALENCIA MD, Ot E11.9 TYPE 2 DIABETES MELLITUS WITHOUT COMPLIC 08/18/2017 LYUDMILA PALENCIA MD, Ot E66.01 MORBID (SEVERE) OBESITY DUE TO EXCESS CA 08/18/2017 LYUDMILA PALENCIA MD, Ot E78.5 HYPERLIPIDEMIA, UNSPECIFIED 08/18/2017 LYUDMILA PALENCIA MD, Ot E87.6 HYPOKALEMIA 08/18/2017 LYUDMILA PALENCIA MD, Ot G47.30 SLEEP APNEA, UNSPECIFIED 08/18/2017 LYUDMILA PALENCIA MD, Ot I10 ESSENTIAL (PRIMARY) HYPERTENSION 08/18/2017 LYUDMILA PALENCIA MD, Ot I25.10 ATHSCL HEART DISEASE OF [place] CORONARY 08/18/2017 LYUDMILA PALENCIA MD, Ot J44.9 CHRONIC OBSTRUCTIVE PULMONARY DISEASE, U 08/18/2017 LYUDMILA PALENCIA MD, Ot Z68.43 BODY MASS INDEX (BMI) 50-59.9 , ADULT 08/18/2017 LYUDMILA PALENCIA MD, Ot Z79.899 OTHER PERSONAL COUNSELOR (CURRENT) DRUG THERAPY 08/18/2017 LYUDMILA PALENCIA MD, Ot Z95.5 PRESENCE OF CORONARY ANGIOPLASTY IMPLANT 09/27/2017 LYUDMILA PALENCIA MD, Ot 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 LYMPHOCYTIC LEUK OF B-CELL TYPE 09/27/2017 LYUDMILA PALENCIA MD, Ot E11.9 TYPE 2 DIABETES MELLITUS WITHOUT COMPLIC 09/27/2017 LYUDMILA PALENCIA MD, Ot E66.01 MORBID (SEVERE) OBESITY DUE TO EXCESS CA 09/27/2017 LYUDMILA PALENCIA MD, Ot E78.5 HYPERLIPIDEMIA, UNSPECIFIED 09/27/2017 LYUDMILA PALENCIA MD, Ot E87.6 HYPOKALEMIA 09/27/2017 LYUDMILA PALENCIA MD Ot G47.30 SLEEP APNEA, UNSPECIFIED 09/27/2017 LYUDMILA PALENCIA MD Ot I10 ESSENTIAL (PRIMARY) HYPERTENSION 09/27/2017 LYUDMILA PALENCIA MD Ot I25.10 ATHSCL HEART DISEASE OF [place] CORONARY 09/27/2017 LYUDMILA PALENCIA MD, Ot J44.9 CHRONIC OBSTRUCTIVE PULMONARY DISEASE, U 09/27/2017 LYUDMILA PALENCIA MD, Ot Z68.43 BODY MASS INDEX (BMI) 50-59.9 , ADULT 09/27/2017 LYUDMILA PALENCIA MD, Ot Z79.899 OTHER JAIL (CURRENT) DRUG THERAPY 09/27/2017 LYUDMILA PALENCIA MD, Ot Z95.5 PRESENCE OF CORONARY ANGIOPLASTY IMPLANT 09/28/2017 NADINE HARP MD Ot R06.02 SHORTNESS OF BREATH 09/28/2017 LYUDMILA PALENCIA MD, Ot 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 LYMPHOCYTIC LEUK OF B-CELL TYPE 09/28/2017 LYUDMILA PALENCIA MD Ot E11.9 TYPE 2 DIABETES MELLITUS WITHOUT COMPLIC 09/28/2017 LYUDMILA PALENCIA MD Ot E66.01 MORBID (SEVERE) OBESITY DUE TO EXCESS CA 09/28/2017 LYUDMILA PALENCIA MD Ot E78.5 HYPERLIPIDEMIA, UNSPECIFIED 09/28/2017 LYUDMILA PALENCIA MD Ot E87.6 HYPOKALEMIA 09/28/2017 LYUDMILA PALENCIA MD, Ot G47.30 SLEEP APNEA, UNSPECIFIED 09/28/2017 LYUDMILA PALENCIA MD Ot I10 ESSENTIAL (PRIMARY) HYPERTENSION 09/28/2017 LYUDMILA PALENCIA MD Ot I25.10 ATHSCL HEART DISEASE OF [place] CORONARY 09/28/2017 LYUDMILA PALENCIA MD, Ot J44.9 CHRONIC OBSTRUCTIVE PULMONARY DISEASE, U 09/28/2017 LYUDMILA PALENCIA MD, Ot Z68.43 BODY MASS INDEX (BMI) 50-59.9 , ADULT 09/28/2017 LYUDMILA PALENCIA MD, Ot Z79.899 OTHER PERSONAL COUNSELOR (CURRENT) DRUG THERAPY 09/28/2017 LYUDMILA PALENCIA MD Ot Z95.5 PRESENCE OF CORONARY ANGIOPLASTY IMPLANT 09/28/2017 NADINE HARP MD Ot 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, UNSPECIFIED 09/28/2017 NADINE HARP MD Ot C95.90 LEUKEMIA, UNSPECIFIED NOT HAVING ACHIEVE 09/28/2017 NADINE HARP MD Ot E11.9 TYPE 2 DIABETES MELLITUS WITHOUT COMPLIC 09/28/2017 NADINE HARP MD Ot E66.9 OBESITY, UNSPECIFIED 09/28/2017 NADINE HARP MD Ot E78.00 PURE HYPERCHOLESTEROLEMIA, UNSPECIFIED 09/28/2017 NADINE HARP MD Ot F10.21 ALCOHOL DEPENDENCE, IN REMISSION 09/28/2017 NADINE HARP MD Ot F17.290 NICOTINE DEPENDENCE, OTHER TOBACCO PRODU 09/28/2017 NADINE HARP MD Ot F31.9 BIPOLAR DISORDER, UNSPECIFIED 09/28/2017 NADINE HARP MD Ot F60.9 PERSONALITY DISORDER, UNSPECIFIED 09/28/2017 NADINE HARP MD Ot F63.9 IMPULSE DISORDER, UNSPECIFIED 09/28/2017 NADINE HARP MD Ot G40.909 EPILEPSY, UNSP, NOT INTRACTABLE, WITHOUT 09/28/2017 NADINE HARP MD Ot G43.109 MIGRAINE WITH AURA, NOT INTRACTABLE, W/O 09/28/2017 NADINE HARP MD Ot G47.33 OBSTRUCTIVE SLEEP APNEA (ADULT) (PEDIATR 09/28/2017 NADINE HARP MD Ot I10 ESSENTIAL (PRIMARY) HYPERTENSION 09/28/2017 NADINE HARP MD Ot I25.10 ATHSCL HEART DISEASE OF [place] CORONARY 09/28/2017 NADINE HARP MD Ot J45.909 UNSPECIFIED ASTHMA, UNCOMPLICATED 09/28/2017 NADINE HARP MD Ot K21.9 GASTRO-ESOPHAGEAL REFLUX DISEASE WITHOUT 09/28/2017 NADINE HARP MD Ot M19.91 PRIMARY OSTEOARTHRITIS, UNSPECIFIED SITE 09/28/2017 NADINE HARP MD Ot M54.9 DORSALGIA, UNSPECIFIED 09/28/2017 NADINE HARP MD Ot R06.02 SHORTNESS OF BREATH 09/28/2017 NADINE HARP MD Ot Z68.43 BODY MASS INDEX (BMI) 50-59.9 , ADULT 09/28/2017 NADINE HARP MD, Ot Z79.4 PERSONAL COUNSELOR (CURRENT) USE OF INSULIN 09/28/2017 NADINE HARP MD, Ot Z85.828 PERSONAL HISTORY OF OTHER MALIGNANT NEOP 09/28/2017 NADINE HARP MD, Ot Z95.5 PRESENCE OF CORONARY ANGIOPLASTY IMPLANT 09/29/2017 NADINE HARP MD Ot 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, UNSPECIFIED 09/29/2017 NADINE HARP MD, Ot C95.90 LEUKEMIA, UNSPECIFIED NOT HAVING ACHIEVE 09/29/2017 NADINE HARP MD, Ot D63.8 ANEMIA IN OTHER CHRONIC DISEASES CLASSIF 09/29/2017 NADINE HARP MD, Ot E11.9 TYPE 2 DIABETES MELLITUS WITHOUT COMPLIC 09/29/2017 NADINE HARP MD Ot E66.2 MORBID (SEVERE) OBESITY WITH ALVEOLAR HY 09/29/2017 NADINE HARP MD Ot E78.00 PURE HYPERCHOLESTEROLEMIA, UNSPECIFIED 09/29/2017 NADINE HARP MD Ot E87.6 HYPOKALEMIA 09/29/2017 NADINE HARP MD Ot F10.21 ALCOHOL DEPENDENCE, IN REMISSION 09/29/2017 NADINE HARP MD Ot F17.290 NICOTINE DEPENDENCE, OTHER TOBACCO PRODU 09/29/2017 NADINE HARP MD Ot F31.9 BIPOLAR DISORDER, UNSPECIFIED 09/29/2017 NAIDNE HARP MD Ot F60.9 PERSONALITY DISORDER, UNSPECIFIED 09/29/2017 NADINE HARP MD Ot F63.9 IMPULSE DISORDER, UNSPECIFIED 09/29/2017 NADINE HARP MD Ot G40.909 EPILEPSY, UNSP, NOT INTRACTABLE, WITHOUT 09/29/2017 NADINE HARP MD Ot G43.109 MIGRAINE WITH AURA, NOT INTRACTABLE, W/O 09/29/2017 NADINE HARP MD Ot I11.0 HYPERTENSIVE HEART DISEASE WITH HEART FA 09/29/2017 NADINE HARP MD Ot I25.10 ATHSCL HEART DISEASE OF [place] CORONARY 09/29/2017 NADINE HARP MD Ot I50.32 CHRONIC DIASTOLIC (CONGESTIVE) HEART GELA 09/29/2017 NADINE HARP MD, Ot J18.9 PNEUMONIA, UNSPECIFIED ORGANISM 09/29/2017 NADINE HARP MD, Ot J44.1 CHRONIC OBSTRUCTIVE PULMONARY DISEASE W 09/29/2017 NADINE HARP MD, Ot J45.909 UNSPECIFIED ASTHMA, UNCOMPLICATED 09/29/2017 NADINE HARP MD, Ot J81.1 CHRONIC PULMONARY EDEMA 09/29/2017 NADINE HARP MD, Ot K21.9 GASTRO-ESOPHAGEAL REFLUX DISEASE WITHOUT 09/29/2017 NADINE HARP MD, Ot M19.91 PRIMARY OSTEOARTHRITIS, UNSPECIFIED SITE 09/29/2017 NADINE HARP MD, Ot M54.9 DORSALGIA, UNSPECIFIED 09/29/2017 NADINE HARP MD, Ot R09.02 HYPOXEMIA 09/29/2017 NADINE HARP MD, Ot Z68.43 BODY MASS INDEX (BMI) 50-59.9 , ADULT 09/29/2017 NADINE HARP MD, Ot Z79.4 JAIL (CURRENT) USE OF INSULIN 09/29/2017 NADINE HARP MD, Ot Z85.828 PERSONAL HISTORY OF OTHER MALIGNANT NEOP 09/29/2017 NADINE HARP MD, Ot Z95.5 PRESENCE OF CORONARY ANGIOPLASTY IMPLANT 10/06/2017 LYUDMILA PALENCIA MD, Ot 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 LYMPHOCYTIC LEUK OF B-CELL TYPE 10/06/2017 LYUDMILA PALENCIA MD, Ot E11.9 TYPE 2 DIABETES MELLITUS WITHOUT COMPLIC 10/06/2017 LYUDMILA PALENCIA MD, Ot E66.01 MORBID (SEVERE) OBESITY DUE TO EXCESS CA 10/06/2017 LYUDMILA PALENCIA MD, Ot E78.5 HYPERLIPIDEMIA, UNSPECIFIED 10/06/2017 LYUDMILA PALENCIA MD, Ot E87.6 HYPOKALEMIA 10/06/2017 LYUDMILA PALENCIA MD, Ot G47.30 SLEEP APNEA, UNSPECIFIED 10/06/2017 LYUDMILA PALENCIA MD, Ot I10 ESSENTIAL (PRIMARY) HYPERTENSION 10/06/2017 LYUDMILA PALENCIA MD, Ot I25.10 ATHSCL HEART DISEASE OF [place] CORONARY 10/06/2017 LYUDMILA PALENCIA MD, Ot J44.9 CHRONIC OBSTRUCTIVE PULMONARY DISEASE, U 10/06/2017 LYUDMILA PALENCIA MD, Ot Z68.43 BODY MASS INDEX (BMI) 50-59.9 , ADULT 10/06/2017 LYUDMILA PALENCIA MD Ot Z79.899 OTHER PERSONAL COUNSELOR (CURRENT) DRUG THERAPY 10/06/2017 LYUDMILA PALENCIA MD Ot Z95.5 PRESENCE OF CORONARY ANGIOPLASTY IMPLANT 10/30/2017 LYUDMILA PALENCIA MD Ot 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 LYMPHOCYTIC LEUK OF B-CELL TYPE 10/30/2017 LYUDMILA PALENCIA MD Ot E11.9 TYPE 2 DIABETES MELLITUS WITHOUT COMPLIC 10/30/2017 LYUDMILA PALENCIA MD Ot E66.01 MORBID (SEVERE) OBESITY DUE TO EXCESS CA 10/30/2017 LYUDMILA PALENCIA MD Ot E78.5 HYPERLIPIDEMIA, UNSPECIFIED 10/30/2017 LYUDMILA PALENCIA MD Ot E87.6 HYPOKALEMIA 10/30/2017 LYUDMILA PALENCIA MD, Ot G47.30 SLEEP APNEA, UNSPECIFIED 10/30/2017 LYUDMILA PALENCIA MD Ot I10 ESSENTIAL (PRIMARY) HYPERTENSION 10/30/2017 LYUDMILA PALENCIA MD Ot I25.10 ATHSCL HEART DISEASE OF [place] CORONARY 10/30/2017 LYUDMILA PALENCIA MD Ot J44.9 CHRONIC OBSTRUCTIVE PULMONARY DISEASE, U 10/30/2017 LYUDMILA PALENCIA MD, Ot Z68.43 BODY MASS INDEX (BMI) 50-59.9 , ADULT 10/30/2017 LYUDMILA PALENCIA MD Ot Z79.899 OTHER JAIL (CURRENT) DRUG THERAPY 10/30/2017 LYUDMILA PALENCIA MD Ot Z95.5 PRESENCE OF CORONARY ANGIOPLASTY IMPLANT 10/30/2017 ODALIS STOVALL MD, Ot 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 LYMPHOCYTIC LEUK OF B-CELL TYPE 10/30/2017 ODALIS STOVALL MD Ot E11.9 TYPE 2 DIABETES MELLITUS WITHOUT COMPLIC 10/30/2017 ODALIS STOVALL MD Ot E66.01 MORBID (SEVERE) OBESITY DUE TO EXCESS CA 10/30/2017 ODALIS STOVALL MD Ot E78.5 HYPERLIPIDEMIA, UNSPECIFIED 10/30/2017 ODALIS STOVALL MD Ot E87.6 HYPOKALEMIA 10/30/2017 ODALIS STOVALL MD Ot G47.30 SLEEP APNEA, UNSPECIFIED 10/30/2017 ODALIS STOVALL MD Ot I10 ESSENTIAL (PRIMARY) HYPERTENSION 10/30/2017 ODALIS STOVALL MD Ot I25.10 ATHSCL HEART DISEASE OF [place] CORONARY 10/30/2017 ODALIS STOVALL MD Ot J44.9 CHRONIC OBSTRUCTIVE PULMONARY DISEASE, U 10/30/2017 ODALIS STOVALL MD Ot Z68.43 BODY MASS INDEX (BMI) 50-59.9 , ADULT 10/30/2017 ODALIS STOVALL MD Ot Z79.899 OTHER PERSONAL COUNSELOR (CURRENT) DRUG THERAPY 10/30/2017 ODALIS STOVALL MD Ot Z95.5 PRESENCE OF CORONARY ANGIOPLASTY IMPLANT 10/31/2017 BAIJANICE KENT L LIGHT CLEANER Ot E83.42 HYPOMAGNESEMIA 10/31/2017 BAIDONTE JANICE L LIGHT CLEANER Ot E87.6 HYPOKALEMIA 11/02/2017 ODALIS STOVALL MD Ot 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 LYMPHOCYTIC LEUK OF B-CELL TYPE 11/02/2017 ODALIS STOVALL MD Ot E11.9 TYPE 2 DIABETES MELLITUS WITHOUT COMPLIC 11/02/2017 ODALIS STOVALL MD Ot E66.01 MORBID (SEVERE) OBESITY DUE TO EXCESS CA 11/02/2017 ODALIS STOVALL MD Ot E78.5 HYPERLIPIDEMIA, UNSPECIFIED 11/02/2017 ODALIS STOVALL MD Ot E87.6 HYPOKALEMIA 11/02/2017 ODALIS STOVALL MD Ot G47.30 SLEEP APNEA, UNSPECIFIED 11/02/2017 ODALIS STOVALL MD Ot I10 ESSENTIAL (PRIMARY) HYPERTENSION 11/02/2017 ODALIS STOVALL MD Ot I25.10 ATHSCL HEART DISEASE OF [place] CORONARY 11/02/2017 ODALIS STOVALL MD Ot J44.9 CHRONIC OBSTRUCTIVE PULMONARY DISEASE, U 11/02/2017 ODALIS STOVALL MD Ot Z68.43 BODY MASS INDEX (BMI) 50-59.9 , ADULT 11/02/2017 ODALIS STOVALL MD Ot Z79.899 OTHER JAIL (CURRENT) DRUG THERAPY 11/02/2017 ODALIS STOVALL MD Ot Z95.5 PRESENCE OF CORONARY ANGIOPLASTY IMPLANT 11/02/2017 ODALIS STOVALL MD Ot 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 LYMPHOCYTIC LEUK OF B-CELL TYPE 11/02/2017 ODALIS STOVALL MD Ot E11.9 TYPE 2 DIABETES MELLITUS WITHOUT COMPLIC 11/02/2017 ODALIS STOVALL MD Ot E66.01 MORBID (SEVERE) OBESITY DUE TO EXCESS CA 11/02/2017 ODALIS STOVALL MD Ot E78.5 HYPERLIPIDEMIA, UNSPECIFIED 11/02/2017 ODALIS STOVALL MD Ot E87.6 HYPOKALEMIA 11/02/2017 ODALIS STOVALL MD Ot G47.30 SLEEP APNEA, UNSPECIFIED 11/02/2017 ODALIS STOVALL MD Ot I10 ESSENTIAL (PRIMARY) HYPERTENSION 11/02/2017 ODALIS STOVALL MD Ot I25.10 ATHSCL HEART DISEASE OF [place] CORONARY 11/02/2017 ODALIS STOVALL MD Ot J44.9 CHRONIC OBSTRUCTIVE PULMONARY DISEASE, U 11/02/2017 ODALIS STOVALL MD Ot Z68.43 BODY MASS INDEX (BMI) 50-59.9 , ADULT 11/02/2017 ODALIS STOVALL MD Ot Z79.899 OTHER JAIL (CURRENT) DRUG THERAPY 11/02/2017 ODALIS STOVALL MD Ot Z95.5 PRESENCE OF CORONARY ANGIOPLASTY IMPLANT 11/02/2017 ODALIS STOVALL MD Ot 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 LYMPHOCYTIC LEUK OF B-CELL TYPE 11/02/2017 ODALIS STOVALL MD Ot E11.9 TYPE 2 DIABETES MELLITUS WITHOUT COMPLIC 11/02/2017 ODALIS STOVALL MD Ot E66.01 MORBID (SEVERE) OBESITY DUE TO EXCESS CA 11/02/2017 ODALIS STOVALL MD Ot E78.00 PURE HYPERCHOLESTEROLEMIA, UNSPECIFIED 11/02/2017 ODALIS STOVALL MD Ot E79.0 HYPERURICEMIA W/O SIGNS OF INFLAM ARTHRI 11/02/2017 ODALIS STOVALL MD Ot E87.5 HYPERKALEMIA 11/02/2017 ODALIS STOVALL MD Ot F31.9 BIPOLAR DISORDER, UNSPECIFIED 11/02/2017 ODALIS STOVALL MD Ot G47.33 OBSTRUCTIVE SLEEP APNEA (ADULT) (PEDIATR 11/02/2017 ODALIS STOVALL MD Ot I25.10 ATHSCL HEART DISEASE OF [place] CORONARY 11/02/2017 ODALIS STOVALL MD Ot J44.9 CHRONIC OBSTRUCTIVE PULMONARY DISEASE, U 11/02/2017 ODALIS STOVALL MD Ot K21.9 GASTRO-ESOPHAGEAL REFLUX DISEASE WITHOUT 11/02/2017 ODALIS STOVALL MD Ot Z23 ENCOUNTER FOR IMMUNIZATION 11/02/2017 ODALIS STOVALL MD Ot Z68.43 BODY MASS INDEX (BMI) 50-59.9 , ADULT 11/02/2017 ODALIS STOVLAL MD Ot Z79.4 JAIL (CURRENT) USE OF INSULIN 11/02/2017 ODALIS STOVALL MD Ot Z79.899 OTHER PERSONAL COUNSELOR (CURRENT) DRUG THERAPY 11/02/2017 ODALIS STOVALL MD Ot Z95.5 PRESENCE OF CORONARY ANGIOPLASTY IMPLANT 11/02/2017 ODALIS STOVALL MD Ot 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 LYMPHOCYTIC LEUK OF B-CELL TYPE 11/02/2017 ODALIS STOVALL MD Ot E11.9 TYPE 2 DIABETES MELLITUS WITHOUT COMPLIC 11/02/2017 ODALIS STOVALL MD Ot E66.01 MORBID (SEVERE) OBESITY DUE TO EXCESS CA 11/02/2017 ODALIS STOVALL MD Ot E78.00 PURE HYPERCHOLESTEROLEMIA, UNSPECIFIED 11/02/2017 ODALIS STOVALL MD Ot E79.0 HYPERURICEMIA W/O SIGNS OF INFLAM ARTHRI 11/02/2017 ODALIS STOVALL MD Ot E87.5 HYPERKALEMIA 11/02/2017 ODALIS STOVALL MD Ot F31.9 BIPOLAR DISORDER, UNSPECIFIED 11/02/2017 ODALIS STOVALL MD Ot G47.33 OBSTRUCTIVE SLEEP APNEA (ADULT) (PEDIATR 11/02/2017 ODALIS STOVALL MD Ot I25.10 ATHSCL HEART DISEASE OF [place] CORONARY 11/02/2017 ODALIS STOVALL MD Ot J44.9 CHRONIC OBSTRUCTIVE PULMONARY DISEASE, U 11/02/2017 ODALIS STOVALL MD Ot K21.9 GASTRO-ESOPHAGEAL REFLUX DISEASE WITHOUT 11/02/2017 ODALIS STOVALL MD Ot Z23 ENCOUNTER FOR IMMUNIZATION 11/02/2017 ODALIS STOVALL MD Ot Z68.43 BODY MASS INDEX (BMI) 50-59.9 , ADULT 11/02/2017 ODALIS STOVALL MD Ot Z79.4 JAIL (CURRENT) USE OF INSULIN 11/02/2017 ODALIS STOVALL MD Ot Z79.899 OTHER PERSONAL COUNSELOR (CURRENT) DRUG THERAPY 11/02/2017 ODALIS STOVALL MD Ot Z95.5 PRESENCE OF CORONARY ANGIOPLASTY IMPLANT 01/10/2018 Ot 250.02 01/10/2018 Ot V58.69 01/10/2018 Ot 722.4 01/10/2018 Ot 782.0 01/10/2018 Ot 250.00 01/10/2018 Ot 401.9 01/10/2018 Ot 780.79 01/10/2018 Ot 786.09 01/10/2018 Ot 250.00 DIAB AILEEN WO COMPL, TYPE II OR UNSPEC TY 01/10/2018 Ot 272.4 HYPERLIPIDEMIA NEC/NOS 01/10/2018 Ot 278.01 MORBID OBESITY 01/10/2018 Ot 288.61 LYMPHOCYTOSIS (SYMPTOMATIC) 01/10/2018 Ot 296.80 BIPOLAR DISORDER, UNSPECIFIED 01/10/2018 Ot 327.23 OBSTRUCTIVE SLEEP APNEA (ADULT) (PEDIATR 01/10/2018 Ot 345.90 EPILEPSY UNSPEC W/O MENTION INTRACTABLE 01/10/2018 Ot 493.90 ASTHMA, UNSPECIFIED 01/10/2018 Ot 530.81 ESOPHAGEAL REFLUX 01/10/2018 Ot V13.02 PERSONAL HISTORY, URINARY (TRACT) INFECT 01/10/2018 Ot V58.67 LONG-TERM ( CURRENT) USE OF INSULIN 01/10/2018 Ot V58.69 OTH MED,LT, CURRENT USE 01/10/2018 Ot 298.9 PSYCHOSIS NOS 01/10/2018 Ot 786.05 SHORTNESS OF BREATH 01/10/2018 Ot 429.3 CARDIOMEGALY 01/10/2018 Ot 786.2 COUGH 01/10/2018 Ot 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 01/10/2018 Ot V72.63 PRE- PROCEDURAL LABORATORY EXAMINATION 01/10/2018 Ot V74.8 SCREEN- BACTERIAL DIS NEC 01/10/2018 Ot 250.00 DIAB AILEEN WO COMPL, TYPE II OR UNSPEC TY 01/10/2018 Ot 272.4 HYPERLIPIDEMIA NEC/NOS 01/10/2018 Ot 278.01 MORBID OBESITY 01/10/2018 Ot 288.61 LYMPHOCYTOSIS (SYMPTOMATIC) 01/10/2018 Ot 296.80 BIPOLAR DISORDER, UNSPECIFIED 01/10/2018 Ot 327.23 OBSTRUCTIVE SLEEP APNEA (ADULT) (PEDIATR 01/10/2018 Ot 345.90 EPILEPSY UNSPEC W/O MENTION INTRACTABLE 01/10/2018 Ot 493.90 ASTHMA, UNSPECIFIED 01/10/2018 Ot 530.81 ESOPHAGEAL REFLUX 01/10/2018 Ot V13.02 PERSONAL HISTORY, URINARY (TRACT) INFECT 01/10/2018 Ot V58.67 LONG-TERM ( CURRENT) USE OF INSULIN 01/10/2018 Ot V58.69 OTH MED,LT, CURRENT USE 01/10/2018 Ot 709.9 SKIN DISORDER NOS 01/10/2018 Ot V72.83 EXAM PRE- OPERATIVE NEC 01/10/2018 Ot V74.8 SCREEN- BACTERIAL DIS NEC 01/10/2018 Ot 571.8 CHRONIC LIVER DIS NEC 01/10/2018 Ot 789.00 ABDOMINAL PAIN, UNSPECIFIED SITE 01/10/2018 Ot 787.01 NAUSEA WITH VOMITING 01/10/2018 Ot 789.00 ABDOMINAL PAIN, UNSPECIFIED SITE 01/10/2018 Ot 368.9 VISUAL DISTURBANCE NOS 01/10/2018 Ot 784.0 HEADACHE 01/10/2018 Ot 250.00 DIAB AILEEN WO COMPL, TYPE II OR UNSPEC TY 01/10/2018 Ot 369.9 VISUAL LOSS NOS 01/10/2018 Ot 433.10 CAROTID ARTERY OCCLUSION W O CEREBRAL IN 01/10/2018 NOEMI WASHBURN Ot 250.80 DIAB W OTH SPEC MANIFEST, TYPE II OR UNS 01/10/2018 NOEMI WASHBURNP Ot 276.7 HYPERPOTASSEMIA 01/10/2018 NOEMI WASHBURNP Ot 280.1 IRON DEF ANEMIA DIETARY 01/10/2018 NOEMI WASHBURNP Ot 293.84 ANXIETY DISORDER IN CONDITIONS CLASSIFIE 01/10/2018 NOEMI WASHBURN Ot 310.1 PERSONALITY CHANGE DUE TO CONDITIONS CLA 01/10/2018 NOEMI WASHBURN Ot 327.23 OBSTRUCTIVE SLEEP APNEA (ADULT) (PEDIATR 01/10/2018 NOEMI WASHBURNP Ot 401.0 MALIGNANT HYPERTENSION 01/10/2018 NOEMI WASHBURNP Ot 414.00 CORON ATHEROSCLER NOS TYPE VESSEL, NATIV 01/10/2018 NOEMI WASHBURNP Ot 719.41 JOINT PAIN-SHLDER 01/10/2018 NOEMI WASHBURNP Ot 780.93 MEMORY LOSS 01/10/2018 NOEMI WASHBURNP Ot 785.1 PALPITATIONS 01/10/2018 NOEMI WASHBURNP Ot 786.09 RESPIRATORY ABNORM NEC 01/10/2018 TREVOR SCHULZ DO Ot 250.90 DIAB W UNSPEC COMPL, TYPE II OR UNSPEC T 01/10/2018 TREVOR SCHULZ DO Ot 278.01 MORBID OBESITY 01/10/2018 LURDES SCHULZ DOA Genaro Ot 288.61 LYMPHOCYTOSIS (SYMPTOMATIC) 01/10/2018 LURDES SCHULZ DOA K Ot 296.89 OTHER AND UNSPECIFIED BIPOLAR DISORDERS, 01/10/2018 LURDES SCHULZ DOA K Ot 327.23 OBSTRUCTIVE SLEEP APNEA (ADULT) (PEDIATR 01/10/2018 LURDES SCHULZ DOA Genaro Ot 401.1 BENIGN HYPERTENSION 01/10/2018 TREVOR SCHULZ DO Ot 414.00 CORON ATHEROSCLER NOS TYPE VESSEL, NATIV 01/10/2018 TREVOR SCHULZ DO Ot V58.69 OTH MED,LT,CURRENT USE 01/10/2018 ROSEMARY ROBINS, BRETT Hatch Ot V72.84 EXAM PRE-OPERATIVE NOS 01/10/2018 NOEMI WASHBURNP Ot 729.81 SWELLING OF LIMB 01/10/2018 NOEMI WASHBURN LIGHT CLEANER Ot 571.8 CHRONIC LIVER DIS NEC 01/10/2018 NOEMI WASHBURN LIGHT CLEANER Ot 787.01 NAUSEA WITH VOMITING 01/10/2018 CARMEN ROBINS, GABBIE Lam Ot D72.820 LYMPHOCYTOSIS (SYMPTOMATIC) 01/10/2018 HIEN ROBINS FAC, ALI FACP CCDS Ot D72.820 LYMPHOCYTOSIS (SYMPTOMATIC) 01/10/2018 HIEN ROBINS FAC, ALI FACP CCDS Ot E13.9 OTHER SPECIFIED DIABETES MELLITUS WITHOU 01/10/2018 HIEN ROBINS FAC, ALI FACP CCDS Ot G47.33 OBSTRUCTIVE SLEEP APNEA (ADULT) (PEDIATR 01/10/2018 HIEN ROBINS FAC, ALI FACP CCDS Ot I25.10 ATHSCL HEART DISEASE OF [place] CORONARY 01/10/2018 HIEN ROBINS FAC, ALI FACP CCDS Ot I49.5 SICK SINUS SYNDROME 01/10/2018 ROSEMARY OVALLE DO Ot F31.9 BIPOLAR DISORDER, UNSPECIFIED 01/10/2018 ROSEMARY OVALLE DO Ot G47.33 OBSTRUCTIVE SLEEP APNEA (ADULT) (PEDIATR 01/10/2018 ROSEMARY OVALLE DO Ot J45.909 UNSPECIFIED ASTHMA, UNCOMPLICATED 01/10/2018 ROSEMARY OVALLE DO Ot R59.0 LOCALIZED ENLARGED LYMPH NODES 01/10/2018 LUKE MCMANUS MD Ot E66.01 MORBID (SEVERE) OBESITY DUE TO EXCESS CA 01/10/2018 LUKE MCMANUS MD Ot K21.9 GASTRO-ESOPHAGEAL REFLUX DISEASE WITHOUT 01/10/2018 LUKE MCMANUS MD Ot K44.9 DIAPHRAGMATIC HERNIA WITHOUT OBSTRUCTION 01/10/2018 NOEMI WASHBURN Ot 250.80 DIAB W OTH SPEC MANIFEST, TYPE II OR UNS 01/10/2018 NOEMI WASHBURNP Ot 276.7 HYPERPOTASSEMIA 01/10/2018 NOEMI WASHBURN LIGHT CLEANER Ot 280.1 IRON DEF ANEMIA DIETARY 01/10/2018 NOEMI WASHBURNP Ot 293.84 ANXIETY DISORDER IN CONDITIONS CLASSIFIE 01/10/2018 NOEMI WASHBURN LIGHT CLEANER Ot 310.1 PERSONALITY CHANGE DUE TO CONDITIONS CLA 01/10/2018 NOEMI WASHBURNP Ot 327.23 OBSTRUCTIVE SLEEP APNEA (ADULT) (PEDIATR 01/10/2018 NOEMI WASHBURNP Ot 401.0 MALIGNANT HYPERTENSION 01/10/2018 NOEMI WASHBURNP Ot 414.00 CORON ATHEROSCLER NOS TYPE VESSEL, NATIV 01/10/2018 NOEMI WASHBURN Ot 719.41 JOINT PAIN-SHLDER 01/10/2018 NOEMI WASHBURNP Ot 780.93 MEMORY LOSS 01/10/2018 NOEMI WASHBURN Ot 785.1 PALPITATIONS 01/10/2018 NOEMI WASHBURN Ot 786.09 RESPIRATORY ABNORM NEC 01/10/2018 TREVOR SCHULZ DO Ot 250.90 DIAB W UNSPEC COMPL, TYPE II OR UNSPEC T 01/10/2018 TREVOR SCHULZ DO K Ot 278.01 MORBID OBESITY 01/10/2018 TREVOR SCHULZ DO Ot 288.61 LYMPHOCYTOSIS (SYMPTOMATIC) 01/10/2018 TREVOR SCHULZ DO Ot 296.89 OTHER AND UNSPECIFIED BIPOLAR DISORDERS, 01/10/2018 TREVOR SCHULZ DO K Ot 327.23 OBSTRUCTIVE SLEEP APNEA (ADULT) (PEDIATR 01/10/2018 TREVOR SCHULZ DO Ot 401.1 BENIGN HYPERTENSION 01/10/2018 TREVOR SCHULZ DO Ot 414.00 CORON ATHEROSCLER NOS TYPE VESSEL, NATIV 01/10/2018 TREVOR SCHULZ DO Ot V58.69 OTH MED,LT,CURRENT USE 01/10/2018 ROSEMARY ROBINS, BRETT Hatch Ot V72.84 EXAM PRE-OPERATIVE NOS 01/10/2018 NOEMI WASHBURN Ot 729.81 SWELLING OF LIMB 01/10/2018 NOEMI WASHBURNP Ot 571.8 CHRONIC LIVER DIS NEC 01/10/2018 NOEMI WASHBURNP Ot 787.01 NAUSEA WITH VOMITING 01/10/2018 CARMEN ROBINS, GABBIE K Ot D72.820 LYMPHOCYTOSIS (SYMPTOMATIC) 01/10/2018 HIEN ROBINS FAC, ALI FACP CCDS Ot D72.820 LYMPHOCYTOSIS (SYMPTOMATIC) 01/10/2018 IHEN ROBINS FAC, ALI FACP CCDS Ot E13.9 OTHER SPECIFIED DIABETES MELLITUS WITHOU 01/10/2018 HIEN ROBINS FACC, ALI FACP CCDS Ot G47.33 OBSTRUCTIVE SLEEP APNEA (ADULT) (PEDIATR 01/10/2018 HIEN ROBINS FAC, ALI FACP CCDS Ot I25.10 ATHSCL HEART DISEASE OF [place] CORONARY 01/10/2018 HIEN ROBINS FAC, ALI FACP CCDS Ot I49.5 SICK SINUS SYNDROME 01/10/2018 ROSEMARY OVALLE DO, Ot F31.9 BIPOLAR DISORDER, UNSPECIFIED 01/10/2018 ROSEMARY OVALLE DO, Ot G47.33 OBSTRUCTIVE SLEEP APNEA (ADULT) (PEDIATR 01/10/2018 ROSEMARY OVALLE DO Ot J45.909 UNSPECIFIED ASTHMA, UNCOMPLICATED 01/10/2018 ROSEMARY OVALLE DO Ot R59.0 LOCALIZED ENLARGED LYMPH NODES 01/10/2018 LUKE MCMANUS MD, Ot E66.01 MORBID (SEVERE) OBESITY DUE TO EXCESS CA 01/10/2018 LUKE MCMANUS MD Ot K21.9 GASTRO-ESOPHAGEAL REFLUX DISEASE WITHOUT 01/10/2018 LUKE MCMANUS MD, Ot K44.9 DIAPHRAGMATIC HERNIA WITHOUT OBSTRUCTION 01/10/2018 JANICE MURDOCK LIGHT CLEANER Ot E83.42 HYPOMAGNESEMIA 01/10/2018 JANICE MURDOCK LIGHT CLEANER Ot E87.6 HYPOKALEMIA 01/10/2018 ODALIS STOVALL MD, Ot 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 LYMPHOCYTIC LEUK OF B-CELL TYPE 01/10/2018 ODALIS STOVALL MD, Ot E11.9 TYPE 2 DIABETES MELLITUS WITHOUT COMPLIC 01/10/2018 ODALIS STOVALL MD, Ot E66.01 MORBID (SEVERE) OBESITY DUE TO EXCESS CA 01/10/2018 ODALIS STOVALL MD, Ot E78.5 HYPERLIPIDEMIA, UNSPECIFIED 01/10/2018 ODALIS STOVALL MD, Ot E87.6 HYPOKALEMIA 01/10/2018 ODALIS STOVALL MD, Ot G47.30 SLEEP APNEA, UNSPECIFIED 01/10/2018 ODALIS STOVALL MD, Ot I10 ESSENTIAL (PRIMARY) HYPERTENSION 01/10/2018 ODALIS STOVALL MD, Ot I25.10 ATHSCL HEART DISEASE OF [place] CORONARY 01/10/2018 ODALIS STOVALL MD Ot J44.9 CHRONIC OBSTRUCTIVE PULMONARY DISEASE, U 01/10/2018 ODALIS STOVALL MD Ot Z68.43 BODY MASS INDEX (BMI) 50-59.9 , ADULT 01/10/2018 ODALIS STOVALL MD Ot Z79.899 OTHER PERSONAL COUNSELOR (CURRENT) DRUG THERAPY 01/10/2018 ODALIS STOVALL MD Ot Z95.5 PRESENCE OF CORONARY ANGIOPLASTY IMPLANT 2018 ODALIS STOVALL MD Ot 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 LYMPHOCYTIC LEUK OF B-CELL TYPE 2018 ODALIS STOVALL MD Ot E11.9 TYPE 2 DIABETES MELLITUS WITHOUT COMPLIC 2018 ODALIS STOVALL MD Ot E66.01 MORBID (SEVERE) OBESITY DUE TO EXCESS CA 2018 ODALIS STOVALL MD Ot E78.5 HYPERLIPIDEMIA, UNSPECIFIED 2018 ODALIS STOVALL MD Ot E87.6 HYPOKALEMIA 2018 ODALIS STOVALL MD Ot G47.30 SLEEP APNEA, UNSPECIFIED 2018 ODALIS STOVALL MD Ot I10 ESSENTIAL (PRIMARY) HYPERTENSION 2018 ODALIS STOVALL MD Ot I25.10 ATHSCL HEART DISEASE OF [place] CORONARY 2018 ODALIS STOVALL MD Ot J44.9 CHRONIC OBSTRUCTIVE PULMONARY DISEASE, U 2018 ODALIS STOVALL MD Ot Z68.43 BODY MASS INDEX (BMI) 50-59.9 , ADULT 2018 ODALIS STOVALL MD Ot Z79.899 OTHER JAIL (CURRENT) DRUG THERAPY 2018 ODALIS STOVALL MD Ot Z95.5 PRESENCE OF CORONARY ANGIOPLASTY IMPLANT 01/31/2018 ODALIS STOVALL MD Ot 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 LYMPHOCYTIC LEUK OF B-CELL TYPE 01/31/2018 ODALIS STOVALL MD Ot E11.9 TYPE 2 DIABETES MELLITUS WITHOUT COMPLIC 01/31/2018 ODALIS STOVALL MD Ot E66.01 MORBID (SEVERE) OBESITY DUE TO EXCESS CA 01/31/2018 ODALIS STOVALL MD Ot E78.5 HYPERLIPIDEMIA, UNSPECIFIED 01/31/2018 ASHOK STOVALL MDNER Ot E87.6 HYPOKALEMIA 01/31/2018 ODALIS STOVALL MD Ot G47.30 SLEEP APNEA, UNSPECIFIED 01/31/2018 ODALIS STOVALL MD Ot I10 ESSENTIAL (PRIMARY) HYPERTENSION 01/31/2018 ODALIS STOVALL MD Ot I25.10 ATHSCL HEART DISEASE OF [place] CORONARY 01/31/2018 ODALIS STOVALL MD Ot J44.9 CHRONIC OBSTRUCTIVE PULMONARY DISEASE, U 01/31/2018 ODALIS STOVALL MD Ot Z68.43 BODY MASS INDEX (BMI) 50-59.9 , ADULT 01/31/2018 ODALIS STOVALL MD Ot Z79.899 OTHER PERSONAL COUNSELOR (CURRENT) DRUG THERAPY 01/31/2018 ODALIS STOVALL MD Ot Z95.5 PRESENCE OF CORONARY ANGIOPLASTY IMPLANT 02/21/2018 ODALIS STOVALL MD Ot 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 LYMPHOCYTIC LEUK OF B-CELL TYPE 02/21/2018 ODALIS STOVALL MD Ot E11.9 TYPE 2 DIABETES MELLITUS WITHOUT COMPLIC 02/21/2018 ODALIS STOVALL MD Ot E66.01 MORBID (SEVERE) OBESITY DUE TO EXCESS CA 02/21/2018 ODALIS STOVALL MD Ot E78.5 HYPERLIPIDEMIA, UNSPECIFIED 02/21/2018 ASHOK STOVALL MDNER Ot E87.6 HYPOKALEMIA 02/21/2018 ASHOK STOVALL MDNER Ot G47.30 SLEEP APNEA, UNSPECIFIED 02/21/2018 ODALIS STOVALL MD Ot I10 ESSENTIAL (PRIMARY) HYPERTENSION 02/21/2018 ODALIS STOVALL MD Ot I25.10 ATHSCL HEART DISEASE OF [place] CORONARY 02/21/2018 ODALIS STOVALL MD Ot J44.9 CHRONIC OBSTRUCTIVE PULMONARY DISEASE, U 02/21/2018 ODALIS STOVALL MD Ot Z68.43 BODY MASS INDEX (BMI) 50-59.9 , ADULT 02/21/2018 ODALIS STOVALL MD Ot Z79.899 OTHER JAIL (CURRENT) DRUG THERAPY 02/21/2018 ODALIS STOVALL MD Ot Z95.5 PRESENCE OF CORONARY ANGIOPLASTY IMPLANT 02/23/2018 ODALIS STOVALL MD Ot 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 LYMPHOCYTIC LEUK OF B-CELL TYPE 02/23/2018 ODALIS STOVALL MD Ot E11.9 TYPE 2 DIABETES MELLITUS WITHOUT COMPLIC 02/23/2018 ODALIS STOVALL MD Ot E66.01 MORBID (SEVERE) OBESITY DUE TO EXCESS CA 02/23/2018 ODALIS STOVALL MD Ot E78.5 HYPERLIPIDEMIA, UNSPECIFIED 02/23/2018 ASHOK STOVALL MDNER Ot E87.6 HYPOKALEMIA 02/23/2018 ODALIS STOVALL MD Ot G47.30 SLEEP APNEA, UNSPECIFIED 02/23/2018 ASHOK STOVALL MDNER Ot I10 ESSENTIAL (PRIMARY) HYPERTENSION 02/23/2018 ODALIS STOVALL MD Ot I25.10 ATHSCL HEART DISEASE OF [place] CORONARY 02/23/2018 ODALIS STOVALL MD Ot J44.9 CHRONIC OBSTRUCTIVE PULMONARY DISEASE, U 02/23/2018 ODALIS STOVALL MD Ot Z68.43 BODY MASS INDEX (BMI) 50-59.9 , ADULT 02/23/2018 ODALIS STOVALL MD Ot Z79.899 OTHER JAIL (CURRENT) DRUG THERAPY 02/23/2018 ODALIS STOVALL MD Ot Z95.5 PRESENCE OF CORONARY ANGIOPLASTY IMPLANT 05/22/2018 ODALIS STOVALL MD Ot 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 LYMPHOCYTIC LEUK OF B-CELL TYPE 05/22/2018 ODALIS STOVALL MD Ot E11.9 TYPE 2 DIABETES MELLITUS WITHOUT COMPLIC 05/22/2018 ODALIS STOVALL MD Ot E66.01 MORBID (SEVERE) OBESITY DUE TO EXCESS CA 05/22/2018 ODALIS STOVALL MD Ot E78.5 HYPERLIPIDEMIA, UNSPECIFIED 05/22/2018 ASHOK STOVALL MDNER Ot E87.6 HYPOKALEMIA 05/22/2018 ODALIS STOVALL MD Ot G47.30 SLEEP APNEA, UNSPECIFIED 05/22/2018 ASHOK STOVALL MDNER Ot I10 ESSENTIAL (PRIMARY) HYPERTENSION 05/22/2018 ODALIS STOVALL MD Ot I25.10 ATHSCL HEART DISEASE OF [place] CORONARY 05/22/2018 ODALIS STOVALL MD Ot J44.9 CHRONIC OBSTRUCTIVE PULMONARY DISEASE, U 05/22/2018 ODALIS STOVALL MD Ot Z68.43 BODY MASS INDEX (BMI) 50-59.9 , ADULT 05/22/2018 ODALIS STOVALL MD Ot Z79.899 OTHER JAIL (CURRENT) DRUG THERAPY 05/22/2018 ODALIS STOVALL MD Ot Z95.5 PRESENCE OF CORONARY ANGIOPLASTY IMPLANT 06/15/2018 ODALIS STOVALL MD Ot 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 LYMPHOCYTIC LEUK OF B-CELL TYPE 06/15/2018 ODALIS STOVALL MD Ot E11.9 TYPE 2 DIABETES MELLITUS WITHOUT COMPLIC 06/15/2018 ASHOK SOTVALL MDNER Ot E66.01 MORBID (SEVERE) OBESITY DUE TO EXCESS CA 06/15/2018 ODALIS STOVALL MD Ot E78.5 HYPERLIPIDEMIA, UNSPECIFIED 06/15/2018 ODALIS STOVALL MD Ot E87.6 HYPOKALEMIA 06/15/2018 ODALIS STOVALL MD Ot G47.30 SLEEP APNEA, UNSPECIFIED 06/15/2018 ODALIS STOVALL MD Ot I10 ESSENTIAL (PRIMARY) HYPERTENSION 06/15/2018 ODALIS STOVALL MD Ot I25.10 ATHSCL HEART DISEASE OF [place] CORONARY 06/15/2018 ODALIS STOVALL MD Ot J44.9 CHRONIC OBSTRUCTIVE PULMONARY DISEASE, U 06/15/2018 ODALIS STOVALL MD Ot Z68.43 BODY MASS INDEX (BMI) 50-59.9 , ADULT 06/15/2018 ODALIS STOVALL MD Ot Z79.899 OTHER PERSONAL COUNSELOR (CURRENT) DRUG THERAPY 06/15/2018 ODALIS STOVALL MD Ot Z95.5 PRESENCE OF CORONARY ANGIOPLASTY IMPLANT 06/24/2018 ODALIS STOVALL MD Ot 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 LYMPHOCYTIC LEUK OF B-CELL TYPE 06/24/2018 ODALIS STOVALL MD Ot E11.9 TYPE 2 DIABETES MELLITUS WITHOUT COMPLIC 06/24/2018 ODALIS STOVALL MD Ot E66.01 MORBID (SEVERE) OBESITY DUE TO EXCESS CA 06/24/2018 ODALIS STOVALL MD Ot E78.5 HYPERLIPIDEMIA, UNSPECIFIED 06/24/2018 ODALIS STOVALL MD Ot E87.6 HYPOKALEMIA 06/24/2018 ODALIS STOVALL MD Ot G47.30 SLEEP APNEA, UNSPECIFIED 06/24/2018 ODALIS STOVALL MD Ot I10 ESSENTIAL (PRIMARY) HYPERTENSION 06/24/2018 ODALIS STOVALL MD Ot I25.10 ATHSCL HEART DISEASE OF [place] CORONARY 06/24/2018 ODALIS STOVALL MD Ot J44.9 CHRONIC OBSTRUCTIVE PULMONARY DISEASE, U 06/24/2018 ODALIS STOVALL MD Ot Z68.43 BODY MASS INDEX (BMI) 50-59.9 , ADULT 06/24/2018 ODALIS STOVALL MD Ot Z79.899 OTHER JAIL (CURRENT) DRUG THERAPY 06/24/2018 ODALIS STOVALL MD Ot Z95.5 PRESENCE OF CORONARY ANGIOPLASTY IMPLANT 06/27/2018 ODALIS STOVALL MD Ot 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 LYMPHOCYTIC LEUK OF B-CELL TYPE 06/27/2018 ODALIS STOVALL MD Ot E11.9 TYPE 2 DIABETES MELLITUS WITHOUT COMPLIC 06/27/2018 ODALIS STOVALL MD Ot E66.01 MORBID (SEVERE) OBESITY DUE TO EXCESS CA 06/27/2018 ODALIS STOVALL MD, Ot E78.5 HYPERLIPIDEMIA, UNSPECIFIED 06/27/2018 ODALIS STOVALL MD Ot E87.6 HYPOKALEMIA 06/27/2018 ODALIS STOVALL MD, Ot G47.30 SLEEP APNEA, UNSPECIFIED 06/27/2018 ODALIS STOVALL MD Ot I10 ESSENTIAL (PRIMARY) HYPERTENSION 06/27/2018 ODALIS STOVALL MD Ot I25.10 ATHSCL HEART DISEASE OF [place] CORONARY 06/27/2018 ODALIS STOVALL MD Ot J44.9 CHRONIC OBSTRUCTIVE PULMONARY DISEASE, U 06/27/2018 ODALIS STOVALL MD, Ot Z68.43 BODY MASS INDEX (BMI) 50-59.9 , ADULT 06/27/2018 ODALIS STOVALL MD, Ot Z79.899 OTHER JAIL (CURRENT) DRUG THERAPY 06/27/2018 ODALIS STOVALL MD, Ot Z95.5 PRESENCE OF CORONARY ANGIOPLASTY IMPLANT 07/25/2018 BAIMA, JANICE L LIGHT CLEANER Ot E78.5 HYPERLIPIDEMIA, UNSPECIFIED 07/25/2018 BAIMA, JANICE L LIGHT CLEANER Ot G47.33 OBSTRUCTIVE SLEEP APNEA (ADULT) (PEDIATR 07/25/2018 BAIMA, JANICE L LIGHT CLEANER Ot I10 ESSENTIAL (PRIMARY) HYPERTENSION 07/25/2018 BAIMA, JANICE L LIGHT CLEANER Ot I25.10 ATHSCL HEART DISEASE OF [place] CORONARY 07/25/2018 BAIMA, JANICE L LIGHT CLEANER Ot I77.89 OTHER SPECIFIED DISORDERS OF ARTERIES AN 07/25/2018 BAIMA, JANICE L LIGHT CLEANER Ot R07.9 CHEST PAIN, UNSPECIFIED 07/30/2018 BAIMA, JANICE L LIGHT CLEANER Ot E78.5 HYPERLIPIDEMIA, UNSPECIFIED 07/30/2018 BAIMA, JANICE L LIGHT CLEANER Ot G47.33 OBSTRUCTIVE SLEEP APNEA (ADULT) (PEDIATR 07/30/2018 BAIMA, JANICE L LIGHT CLEANER Ot I10 ESSENTIAL (PRIMARY) HYPERTENSION 07/30/2018 BAIMA, JANICE L LIGHT CLEANER Ot I25.10 ATHSCL HEART DISEASE OF [place] CORONARY 07/30/2018 BAIMA, JANICE L LIGHT CLEANER Ot I77.89 OTHER SPECIFIED DISORDERS OF ARTERIES AN 07/30/2018 BAIMA, JANICE L LIGHT CLEANER Ot R07.9 CHEST PAIN, UNSPECIFIED 08/06/2018 NOEMI WASHBURN LIGHT CLEANER Ot 250.80 DIAB W OTH SPEC MANIFEST, TYPE II OR UNS 08/06/2018 NOEMI WASHBURNP Ot 276.7 HYPERPOTASSEMIA 08/06/2018 NOEMI WASHBURN Ot 280.1 IRON DEF ANEMIA DIETARY 08/06/2018 NOEMI WASHBURNP Ot 293.84 ANXIETY DISORDER IN CONDITIONS CLASSIFIE 08/06/2018 NOEMI WASHBURNP Ot 310.1 PERSONALITY CHANGE DUE TO CONDITIONS CLA 08/06/2018 NOEMI WASHBURNP Ot 327.23 OBSTRUCTIVE SLEEP APNEA (ADULT) (PEDIATR 08/06/2018 NOEMI WASHBURNP Ot 401.0 MALIGNANT HYPERTENSION 08/06/2018 NOEMI WASHBURN Ot 414.00 CORON ATHEROSCLER NOS TYPE VESSEL, NATIV 08/06/2018 NOEMI WASHBURN Ot 719.41 JOINT PAIN-SHLDER 08/06/2018 NOEMI WASHBURNP Ot 780.93 MEMORY LOSS 08/06/2018 NOEMI WASHBURN Ot 785.1 PALPITATIONS 08/06/2018 NOEMI WASHBURNP Ot 786.09 RESPIRATORY ABNORM NEC 08/06/2018 LURDES SCHULZ DOA K Ot 250.90 DIAB W UNSPEC COMPL, TYPE II OR UNSPEC T 08/06/2018 TREVOR SCHULZ DO K Ot 278.01 MORBID OBESITY 08/06/2018 LURDES SCHULZ DOA K Ot 288.61 LYMPHOCYTOSIS (SYMPTOMATIC) 08/06/2018 LURDES SCHULZ DOA K Ot 296.89 OTHER AND UNSPECIFIED BIPOLAR DISORDERS, 08/06/2018 TREVOR SCHULZ DO Ot 327.23 OBSTRUCTIVE SLEEP APNEA (ADULT) (PEDIATR 08/06/2018 LURDES SCHULZ DOA K Ot 401.1 BENIGN HYPERTENSION 08/06/2018 TREVOR SCHULZ DO K Ot 414.00 CORON ATHEROSCLER NOS TYPE VESSEL, NATIV 08/06/2018 TREVOR SCHULZ DO Ot V58.69 OTH MED,LT,CURRENT USE 08/06/2018 ROSEMARY ROBINS, BRETT Hatch Ot V72.84 EXAM PRE-OPERATIVE NOS 08/06/2018 NOEMI WASHBURN Ot 729.81 SWELLING OF LIMB 08/06/2018 NOEMI WASHBURN Ot 571.8 CHRONIC LIVER DIS NEC 08/06/2018 WU, NOEMI LIGHT CLEANER Ot 787.01 NAUSEA WITH VOMITING 08/06/2018 CARMEN ROBINS, GABBIE Lam Ot D72.820 LYMPHOCYTOSIS (SYMPTOMATIC) 08/06/[address] [facility], ALI FACP CCDS Ot D72.820 LYMPHOCYTOSIS (SYMPTOMATIC) 08/06/2018 HIEN ROBINS FAC, ALI FACP CCDS Ot E13.9 OTHER SPECIFIED DIABETES MELLITUS WITHOU 08/06/2018 HIEN ROBINS FAC, ALI FACP CCDS Ot G47.33 OBSTRUCTIVE SLEEP APNEA (ADULT) (PEDIATR 08/06/2018 IHEN ROBINS FAC, ALI FACP CCDS Ot I25.10 ATHSCL HEART DISEASE OF [place] CORONARY 08/06/[address] [facility], ALI FACP CCDS Ot I49.5 SICK SINUS SYNDROME 08/06/2018 ROSEMARY OVALLE DO Ot F31.9 BIPOLAR DISORDER, UNSPECIFIED 08/06/2018 ROSEMARY OVALLE DO Ot G47.33 OBSTRUCTIVE SLEEP APNEA (ADULT) (PEDIATR 08/06/2018 ROSEMARY OVALLE DO Ot J45.909 UNSPECIFIED ASTHMA, UNCOMPLICATED 08/06/2018 ROSEMARY OVALLE DO Ot R59.0 LOCALIZED ENLARGED LYMPH NODES 08/06/2018 LUKE MCMANUS MD Ot E66.01 MORBID (SEVERE) OBESITY DUE TO EXCESS CA 08/06/2018 LUKE MCMANUS MD Ot K21.9 GASTRO-ESOPHAGEAL REFLUX DISEASE WITHOUT 08/06/2018 LUKE MCMANUS MD Ot K44.9 DIAPHRAGMATIC HERNIA WITHOUT OBSTRUCTION 08/06/2018 JANICE MURDOCK LIGHT CLEANER Ot E83.42 HYPOMAGNESEMIA 08/06/2018 JANICE MURDOCK LIGHT CLEANER Ot E87.6 HYPOKALEMIA 08/06/2018 ODALIS STOVALL MD Ot 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 LYMPHOCYTIC LEUK OF B-CELL TYPE 08/06/2018 ODALIS STOVALL MD Ot E11.9 TYPE 2 DIABETES MELLITUS WITHOUT COMPLIC 08/06/2018 ODALIS STOVALL MD, Ot E66.01 MORBID (SEVERE) OBESITY DUE TO EXCESS CA 08/06/2018 ODALIS STOVALL MD Ot E78.5 HYPERLIPIDEMIA, UNSPECIFIED 08/06/2018 ODALIS STOVALL MD Ot E87.6 HYPOKALEMIA 08/06/2018 ODALIS STOVALL MD Ot G47.30 SLEEP APNEA, UNSPECIFIED 08/06/2018 ODALIS STOVALL MD Ot I10 ESSENTIAL (PRIMARY) HYPERTENSION 08/06/2018 ODALIS STOVALL MD Ot I25.10 ATHSCL HEART DISEASE OF [place] CORONARY 08/06/2018 ODALIS STOVALL MD Ot J44.9 CHRONIC OBSTRUCTIVE PULMONARY DISEASE, U 08/06/2018 ODALIS STOVALL MD Ot Z68.43 BODY MASS INDEX (BMI) 50-59.9, ADULT 08/06/2018 ODALIS STOVALL MD, Ot Z79.899 OTHER JAIL (CURRENT) DRUG THERAPY 08/06/2018 ODALIS STOVALL MD Ot Z95.5 PRESENCE OF CORONARY ANGIOPLASTY IMPLANT 08/06/2018 JANICE MURDOCK L LIGHT CLEANER Ot E78.5 HYPERLIPIDEMIA, UNSPECIFIED 08/06/2018 BAIDONTE JANICE L LIGHT CLEANER Ot G47.33 OBSTRUCTIVE SLEEP APNEA (ADULT) (PEDIATR 08/06/2018 BAIMA JANICE L LIGHT CLEANER Ot I10 ESSENTIAL (PRIMARY) HYPERTENSION 08/06/2018 MATHIEU JANICE L LIGHT CLEANER Ot I25.10 ATHSCL HEART DISEASE OF [place] CORONARY 08/06/2018 BAIDONTE JANICE L LIGHT CLEANER Ot I77.89 OTHER SPECIFIED DISORDERS OF ARTERIES AN 08/06/2018 BAIMA JANICE L LIGHT CLEANER Ot R07.9 CHEST PAIN, UNSPECIFIED 08/07/2018 LISANDRO ROBINS, LORENA Soto Ot Z01.818 ENCOUNTER FOR OTHER PREPROCEDURAL EXAMIN Procedures Code Description [place] [address] INDIV PSYTX 45/50 MIN 08/21/2012 72978 INDIV PSYTX 45/50 MIN 09/24/2012 16115 ROUTINE VENIPUNCTURE 10/02/2012 94395 A1C (IN-HOUSE) 10/02/2012 97126 MICRO ALBUMIN-IN HOUSE 10/02/2012 93938 UA LONG DIP 10/02/2012 57034 MICROALBUMIN 10/03/2012 44617 AMMONIA 10/03/2012 76969 CMP 10/03/2012 [id number] GFR CALC (RESULT ONLY) 10/03/2012 79884 CBC 10/03/2012 31746 PSYTX PT&/FAMILY 45 MINUTES 11/06/2012 36365 PSYTX PT&/FAMILY 45 MINUTES 01/01/2013 96821 PSYTX PT&/FAMILY 45 MINUTES 03/06/2013 20101 XRAY SHOULDER RIGHT COMP 2 VIEWS 06/05/2013 55460 XRAY ELBOW R 2 VIEWS 06/05/2013 [facility]oped[facility] [place] 06/05/2013 80618 PSYTX PT&/FAMILY 45 MINUTES 06/20/2013 72556 JOINT INJECTION- INTERMEDIATE JOINT 07/04/2013 35069 XRAY WRIST RIGHT COMP MIN 3 VIEWS 07/10/2013 80800 PSYTX PT&/FAMILY 45 MINUTES 07/11/2013 61357 ROUTINE VENIPUNCTURE 07/30/2013 71969 A1C (IN-HOUSE) 07/30/2013 82366 UA LONG DIP 07/30/2013 72097 LIPID PANEL 07/30/2013 65679 CBC 07/30/2013 85027 CMP 07/30/2013 [id number] GFR CALC (RESULT ONLY) 07/30/2013 13984 TSH 07/30/2013 7379707 SPTYPE 08/01/2013 66144 PSYTX PT&/FAMILY 45 MINUTES 10/10/2013 63601 PSYTX PT&/FAMILY 45 MINUTES 10/30/2013 94632 ROUTINE VENIPUNCTURE 11/14/2013 37382 XRAY CHEST 2 VIEW 11/14/2013 27690 EKG, TRACING (IN-HOUSE) 11/14/2013 97909 A1C (IN-HOUSE) 11/14/[address] HEAD/BRAIN W/O & W/DYE 11/15/2013 42370 PSYTX PT&/FAMILY 45 MINUTES 11/15/2013 73247 CBC 11/15/2013 92370 TSH 11/15/2013 23078 CMP 11/18/2013 14780 ROUTINE VENIPUNCTURE 11/25/2013 20824 BNP 11/25/2013 58591 PSYTX PT&/FAMILY 45 MINUTES 12/13/2013 37617 PSYTX PT&/FAMILY 45 MINUTES 01/13/2014 2000F BLOOD PRESSURE CHECK 02/24/2014 14625 ROUTINE VENIPUNCTURE 03/04/2014 52803 A1C (IN-HOUSE) 03/04/2014 54303 MICRO ALBUMIN-IN HOUSE 03/04/2014 J2550 PHENERGAN INJECTION UP TO 50 MG 03/04/2014 J1885 TORADOL INJ 03/04/2014 29041 THERAPUTIC INJ SQ/IM 03/04/2014 79009 CBC 03/04/2014 34045 LIPID PANEL 03/04/2014 6152984 GFR CALC (RESULT ONLY) 03/04/2014 37880 CMP 03/04/2014 14893 TSH 03/04/2014 06459 [employer] 03/06/2014 10720 PSYTX PT&/FAMILY 45 MINUTES 03/10/2014 16219 PSYTX PT&/FAMILY 45 MINUTES 03/25/2014 77532 PSYTX PT&/FAMILY 45 MINUTES 04/16/2014 43863 STREP A (IN-HOUSE) 05/02/2014 64930 OXIMETRY 05/02/2014 35526 PSYTX PT&/FAMILY 45 MINUTES 05/07/2014 03717 PSYTX PT&/FAMILY 45 MINUTES 06/03/2014 13362 ROUTINE VENIPUNCTURE 06/04/2014 92970 PSA TOTAL 06/04/2014 02728 US CAROTID DOPPLER 06/17/2014 46367 PSYTX PT&/FAMILY 45 MINUTES 06/25/2014 44932 PSYTX PT&/FAMILY 45 MINUTES 07/16/2014 27838 MICRO ALBUMIN-IN HOUSE 08/04/2014 77762 [employer] 08/04/2014 86206 A1C (IN-HOUSE) 08/04/2014 11271 PSYTX PT&/FAMILY 45 MINUTES 08/11/2014 71704 SLEEP STUDY ([facility]- SLEEP STUDY) 08/11/2014 17061 SLEEP STUDY ([facility]- SLEEP STUDY) 08/11/2014 04456 MICRO ALBUMIN-IN HOUSE 09/03/2014 62240 MICROALBUMIN 09/03/2014 49484 ROUTINE VENIPUNCTURE 09/05/2014 00694 CBC 09/05/2014 9942311 GFR CALC (RESULT ONLY) 09/05/2014 87274 CMP 09/05/2014 77803 LIPID PANEL 09/05/2014 18349 [employer] 09/11/2014 43271 PSYTX PT&/FAMILY 45 MINUTES 10/01/2014 55068 XRAY KNEE RIGHT 1 OR 2 VIEWS 10/02/2014 87836 US LOWER EXTREMITY ULTRASOUND 10/02/2014 [place] Roman 10/06/2014 89443 SLEEP STUDY ([facility]- SLEEP STUDY) 10/09/2014 57968 ROUTINE VENIPUNCTURE 12/17/2014 66383 [employer] 12/17/2014 71494 A1C (IN-HOUSE) 12/17/2014 26533 MICRO ALBUMIN-IN HOUSE 12/17/2014 56662 UA LONG DIP 12/17/2014 90860 SED/ESR RATE (IN HOUSE) 12/17/2014 06736 CBC 12/17/20146182312 GFR CALC (RESULT ONLY) 12/17/2014 41985 CMP 12/17/2014 54157 LIPID PANEL 12/17/2014 58231 CRP 12/17/2014 86739 PSA TOTAL 12/17/2014 34281 PSYTX PT&/FAMILY 45 MINUTES 01/07/2015 Results Test Result Range Capillary blood glucose measurement by glucometer (mass/volume) - 10/19/16 07: 10 Capillary blood glucose measurement by glucometer (mass/volume) 113 mg/dL 70-110 Methicillin resistant Staphylococcus aureus (MRSA) screening culture - 14:18 Methicillin resistant Staphylococcus aureus (MRSA) screening culture NEG NRG Capillary blood glucose measurement by glucometer (mass/volume) - 11/28/16 07: 47 Capillary blood glucose measurement by glucometer (mass/volume) 95 mg/dL 70-110 Lipid Panel - 05/17/17 10:23 Cholesterol, Total 206 mg/dL 100-199 Triglycerides 151 mg/dL 0-149 HDL Cholesterol 49 mg/dL >39 VLDL Cholesterol Benny 30 mg/dL 5-40 LDL Cholesterol Calc 127 mg/dL 0-99 Complete blood count (CBC) with automated white blood cell (WBC) differential - 08/16/17 09:50 Blood leukocytes automated count (number/volume) 11.7 10*3/uL 4.3-11.0 Blood erythrocytes automated count (number/volume) 4.06 10*6/uL 4.35-5.85 Venous blood hemoglobin measurement (mass/volume) 11.2 g/dL 13.3-17.7 Blood hematocrit (volume fraction) 35 % 40-54 Automated erythrocyte mean corpuscular volume 87 [foz_us] 80-99 Automated erythrocyte mean corpuscular hemoglobin (mass per erythrocyte) 28 pg 25-34 Automated erythrocyte mean corpuscular hemoglobin concentration measurement ( mass/volume) 32 g/dL 32-36 Automated erythrocyte distribution width ratio 14.8 % 10.0-14.5 Automated blood platelet count (count/volume) 244 10*3/uL 130-400 Automated blood platelet mean volume measurement 11.7 [foz_us] 7.4-10.4 Automated blood neutrophils/100 leukocytes 51 % 42-75 Automated blood lymphocytes/100 leukocytes 37 % 12-44 Blood monocytes/100 leukocytes 9 % 0-12 Automated blood eosinophils/100 leukocytes 4 % 0-10 Automated blood basophils/100 leukocytes 0 % 0-10 Blood neutrophils automated count (number/volume) 5.9 10*3 1.8-7.8 Blood lymphocytes automated count (number/volume) 4.3 10*3 1.0-4.0 Blood monocytes automated count (number/volume) 1.0 10*3 0.0-1.0 Automated eosinophil count 0.4 10*3/uL 0.0-0.3 Automated blood basophil count (count/volume) 0.0 10*3/uL 0.0-0.1 Whole blood basic metabolic panel - 08/16/17 09:50 Serum or plasma sodium measurement (moles/volume) 144 mmol/L 135-145 Serum or plasma potassium measurement (moles/volume) 3.6 mmol/L 3.6-5.0 Serum or plasma chloride measurement (moles/volume) 103 mmol/L 98-107 Carbon dioxide 30 mmol/L 21-32 Serum or plasma anion gap determination (moles/volume) 11 mmol/L 5-14 Serum or plasma urea nitrogen measurement (mass/volume) 13 mg/dL 7-18 Serum or plasma creatinine measurement (mass/volume) 1.03 mg/dL 0.60-1.30 Serum or plasma urea nitrogen/creatinine mass ratio 13 NRG Serum or plasma creatinine measurement with calculation of estimated glomerular filtration rate > NRG Serum or plasma glucose measurement (mass/volume) 154 mg/dL 70-105 Serum or plasma calcium measurement (mass/volume) 8.7 mg/dL 8.5-10.1 Complete blood count (CBC) with automated white blood cell (WBC) differential - 09/21/17 08:50 Blood leukocytes automated count (number/volume) 11.0 10*3/uL 4.3-11.0 Blood erythrocytes automated count (number/volume) 4.20 10*6/uL 4.35-5.85 Venous blood hemoglobin measurement (mass/volume) 11.6 g/dL 13.3-17.7 Blood hematocrit (volume fraction) 37 % 40-54 Automated erythrocyte mean corpuscular volume 87 [foz_us] 80-99 Automated erythrocyte mean corpuscular hemoglobin (mass per erythrocyte) 28 pg 25-34 Automated erythrocyte mean corpuscular hemoglobin concentration measurement ( mass/volume) 32 g/dL 32-36 Automated erythrocyte distribution width ratio 15.2 % 10.0-14.5 Automated blood platelet count (count/volume) 266 10*3/uL 130-400 Automated blood platelet mean volume measurement 10.8 [foz_us] 7.4-10.4 Automated blood neutrophils/100 leukocytes 49 % 42-75 Automated blood lymphocytes/100 leukocytes 39 % 12-44 Blood monocytes/100 leukocytes 9 % 0-12 Automated blood eosinophils/100 leukocytes 3 % 0-10 Automated blood basophils/100 leukocytes 0 % 0-10 Blood neutrophils automated count (number/volume) 5.4 10*3 1.8-7.8 Blood lymphocytes automated count (number/volume) 4.3 10*3 1.0-4.0 Blood monocytes automated count (number/volume) 1.0 10*3 0.0-1.0 Automated eosinophil count 0.3 10*3/uL 0.0-0.3 Automated blood basophil count (count/volume) 0.0 10*3/uL 0.0-0.1 Influenza virus A and B antigen detection - 09/27/17 18:58 FLU RESULT NEGATIVE FOR INFLUENZA A AND B ANTIGENS BY IA NRG Complete urinalysis with reflex to culture - 09/27/17 19:38 Urine color determination YELLOW NRG Urine clarity determination CLEAR NRG Urine pH measurement by test strip 8 5-9 Specific gravity of urine by test strip 1.010 1.016- 1.022 Urine protein assay by test strip, semi-quantitative 1+ NEGATIVE Urine glucose detection by automated test strip NEGATIVE NEGATIVE Erythrocytes detection in urine sediment by light microscopy NEGATIVE NEGATIVE Urine ketones detection by automated test strip 2+ NEGATIVE Urine nitrite detection by test strip NEGATIVE NEGATIVE Urine total bilirubin detection by test strip NEGATIVE NEGATIVE Urine urobilinogen measurement by automated test strip (mass/volume) 1 mg/dL NORMAL Urine leukocyte esterase detection by dipstick NEGATIVE NEGATIVE Automated urine sediment erythrocyte count by microscopy (number/high power field) NONE NRG Automated urine sediment leukocyte count by microscopy (number/high power field ) NONE NRG Bacteria detection in urine sediment by light microscopy NONE NRG Squamous epithelial cells detection in urine sediment by light microscopy RARE NRG Crystals detection in urine sediment by light microscopy NONE NRG Casts detection in urine sediment by light microscopy NONE NRG Mucus detection in urine sediment by light microscopy NEGATIVE NRG Complete urinalysis with reflex to culture NO NRG Complete blood count (CBC) with automated white blood cell (WBC) differential - 09/27/17 20:00 Blood leukocytes automated count (number/volume) 13.4 10*3/uL 4.3-11.0 Blood erythrocytes automated count (number/volume) 3.73 10*6/uL 4.35-5.85 Venous blood hemoglobin measurement (mass/volume) 10.2 g/dL 13.3-17.7 Blood hematocrit (volume fraction) 33 % 40-54 Automated erythrocyte mean corpuscular volume 87 [foz_us] 80-99 Automated erythrocyte mean corpuscular hemoglobin (mass per erythrocyte) 27 pg 25-34 Automated erythrocyte mean corpuscular hemoglobin concentration measurement ( mass/volume) 31 g/dL 32-36 Automated erythrocyte distribution width ratio 15.4 % 10.0-14.5 Automated blood platelet count (count/volume) 227 10*3/uL 130-400 Automated blood platelet mean volume measurement 11.3 [foz_us] 7.4-10.4 Automated blood neutrophils/100 leukocytes 60 % 42-75 Automated blood lymphocytes/100 leukocytes 28 % 12-44 Blood monocytes/100 leukocytes 10 % 0-12 Automated blood eosinophils/100 leukocytes 2 % 0-10 Automated blood basophils/100 leukocytes 0 % 0-10 Blood neutrophils automated count (number/volume) 8.0 10*3 1.8-7.8 Blood lymphocytes automated count (number/volume) 3.8 10*3 1.0-4.0 Blood monocytes automated count (number/volume) 1.3 10*3 0.0-1.0 Automated eosinophil count 0.2 10*3/uL 0.0-0.3 Automated blood basophil count (count/volume) 0.1 10*3/uL 0.0-0.1 Blood lactic acid measurement (moles/volume) - 09/27/17 20:00 Blood lactic acid measurement (moles/volume) 1.08 mmol/L 0.50-2.00 Comprehensive metabolic panel - 09/27/17 20:00 Serum or plasma sodium measurement (moles/volume) 142 mmol/L 135-145 Serum or plasma potassium measurement (moles/volume) 3.0 mmol/L 3.6-5.0 Serum or plasma chloride measurement (moles/volume) 102 mmol/L 98-107 Carbon dioxide 28 mmol/L 21-32 Serum or plasma anion gap determination (moles/volume) 12 mmol/L 5-14 Serum or plasma urea nitrogen measurement (mass/volume) 9 mg/dL 7-18 Serum or plasma creatinine measurement (mass/volume) 0.81 mg/dL 0.60-1.30 Serum or plasma urea nitrogen/creatinine mass ratio 11 NRG Serum or plasma creatinine measurement with calculation of estimated glomerular filtration rate > NRG Serum or plasma glucose measurement (mass/volume) 127 mg/dL 70-105 Serum or plasma calcium measurement (mass/volume) 8.7 mg/dL 8.5-10.1 Serum or plasma total bilirubin measurement (mass/volume) 0.6 mg/dL 0.1-1.0 Serum or plasma alkaline phosphatase measurement (enzymatic activity/volume) 89 U/L 40-136 Serum or plasma aspartate aminotransferase measurement (enzymatic activity/ volume) 22 U/L 5-34 Serum or plasma alanine aminotransferase measurement (enzymatic activity/volume ) 17 U/L 0-55 Serum or plasma protein measurement (mass/volume) 6.8 g/dL 6.4-8.2 Serum or plasma albumin measurement (mass/volume) 3.8 g/dL 3.2-4.5 PT panel in platelet poor plasma by coagulation assay - 09/27/17 20:00 Prothrombin time (PT) in platelet poor plasma by coagulation assay 13.7 s 12.2-14.7 INR in platelet poor plasma or blood by coagulation assay 1.0 0.8-1.4 Activated partial thromboplastin time (aPTT) in platelet poor plasma bycoagulation assay - 09/27/17 20:00 Activated partial thromboplastin time (aPTT) in platelet poor plasma bycoagulation assay 33 s 24-35 Fibrin D-dimer FEU measurement in platelet poor plasma (mass/volume) - 20:00 Fibrin D-dimer FEU measurement in platelet poor plasma (mass/volume) 0.43 ug/mL 0.00-0.49 Serum or plasma troponin i.cardiac measurement (mass/volume) - 09/27/17 20:00 Serum or plasma troponin i.cardiac measurement (mass/volume) < ng/ mL <0.30 Serum or plasma thyrotropin measurement by detection limit <=0.05 miu/l (units/ volume) - 09/27/17 20:00 Serum or plasma thyrotropin measurement by detection limit <=0.05 miu/l (units/ volume) 1.90 u[iU]/mL 0.35-4.94 Bacterial blood culture - 09/27/17 20:00 Bacterial blood culture NG NRG Bacterial blood culture - 09/27/17 20:26 Bacterial blood culture NG NRG Complete blood count (CBC) with automated white blood cell (WBC) differential - 09/28/17 05:45 Blood leukocytes automated count (number/volume) 9.5 10*3/uL 4.3-11.0 Blood erythrocytes automated count (number/volume) 2.95 10*6/uL 4.35-5.85 Venous blood hemoglobin measurement (mass/volume) 8.2 g/dL 13.3-17.7 Blood hematocrit (volume fraction) 26 % 40-54 Automated erythrocyte mean corpuscular volume 88 [foz_us] 80-99 Automated erythrocyte mean corpuscular hemoglobin (mass per erythrocyte) 28 pg 25-34 Automated erythrocyte mean corpuscular hemoglobin concentration measurement ( mass/volume) 32 g/dL 32-36 Automated erythrocyte distribution width ratio 15.5 % 10.0-14.5 Automated blood platelet count (count/volume) 187 10*3/uL 130-400 Automated blood platelet mean volume measurement 11.2 [foz_us] 7.4-10.4 Automated blood neutrophils/100 leukocytes 62 % 42-75 Automated blood lymphocytes/100 leukocytes 25 % 12-44 Blood monocytes/100 leukocytes 12 % 0-12 Automated blood eosinophils/100 leukocytes 0 % 0-10 Automated blood basophils/100 leukocytes 0 % 0-10 Blood neutrophils automated count (number/volume) 5.9 10*3 1.8-7.8 Blood lymphocytes automated count (number/volume) 2.4 10*3 1.0-4.0 Blood monocytes automated count (number/volume) 1.2 10*3 0.0-1.0 Automated eosinophil count 0.0 10*3/uL 0.0-0.3 Automated blood basophil count (count/volume) 0.0 10*3/uL 0.0-0.1 Blood lactic acid measurement (moles/volume) - 09/28/17 05:45 Blood lactic acid measurement (moles/volume) 1.19 mmol/L 0.50-2.00 Comprehensive metabolic panel - 09/28/17 05:45 Serum or plasma sodium measurement (moles/volume) 144 mmol/L 135-145 Serum or plasma potassium measurement (moles/volume) 2.9 mmol/L 3.6-5.0 Serum or plasma chloride measurement (moles/volume) 108 mmol/L 98-107 Carbon dioxide 26 mmol/L 21-32 Serum or plasma anion gap determination (moles/volume) 10 mmol/L 5-14 Serum or plasma urea nitrogen measurement (mass/volume) 7 mg/dL 7-18 Serum or plasma creatinine measurement (mass/volume) 0.71 mg/dL 0.60-1.30 Serum or plasma urea nitrogen/creatinine mass ratio 10 NRG Serum or plasma creatinine measurement with calculation of estimated glomerular filtration rate > NRG Serum or plasma glucose measurement (mass/volume) 146 mg/dL 70-105 Serum or plasma calcium measurement (mass/volume) 7.5 mg/dL 8.5-10.1 Serum or plasma total bilirubin measurement (mass/volume) 0.5 mg/dL 0.1-1.0 Serum or plasma alkaline phosphatase measurement (enzymatic activity/volume) 68 U/L 40-136 Serum or plasma aspartate aminotransferase measurement (enzymatic activity/ volume) 18 U/L 5-34 Serum or plasma alanine aminotransferase measurement (enzymatic activity/volume ) 13 U/L 0-55 Serum or plasma protein measurement (mass/volume) 4.4 g/dL 6.4-8.2 Serum or plasma albumin measurement (mass/volume) 3.2 g/dL 3.2-4.5 Serum or plasma lithium measurement (moles/volume) - 09/28/17 05:45 BNP level 232.7 pg/mL <100.0 Magnesium - 09/28/17 05:45 Magnesium 1.3 mg/dL 1.8-2.4 Capillary blood glucose measurement by glucometer (mass/volume) - 09/28/17 10: 45 Capillary blood glucose measurement by glucometer (mass/volume) 153 mg/dL 70-110 Capillary blood glucose measurement by glucometer (mass/volume) - 09/28/17 15: 55 Capillary blood glucose measurement by glucometer (mass/volume) 155 mg/dL 70-110 Capillary blood glucose measurement by glucometer (mass/volume) - 09/28/17 20: 19 Capillary blood glucose measurement by glucometer (mass/volume) 177 mg/dL 70-110 Capillary blood glucose measurement by glucometer (mass/volume) - 09/29/17 05: 21 Capillary blood glucose measurement by glucometer (mass/volume) 152 mg/dL 70-110 Automated blood complete blood count (hemogram) panel - 09/29/17 06:10 Blood leukocytes automated count (number/volume) 10.9 10*3/uL 4.3-11.0 Blood erythrocytes automated count (number/volume) 3.47 10*6/uL 4.35-5.85 Venous blood hemoglobin measurement (mass/volume) 9.7 g/dL 13.3-17.7 Blood hematocrit (volume fraction) 27 % 40-54 Automated erythrocyte mean corpuscular volume 78 [foz_us] 80-99 Automated erythrocyte mean corpuscular hemoglobin (mass per erythrocyte) 28 pg 25-34 Automated erythrocyte mean corpuscular hemoglobin concentration measurement ( mass/volume) 36 g/dL 32-36 Automated erythrocyte distribution width ratio 15.7 % 10.0-14.5 Automated blood platelet count (count/volume) 232 10*3/uL 130-400 Automated blood platelet mean volume measurement 11.2 [foz_us] 7.4-10.4 Comprehensive metabolic panel - 09/29/17 06:10 Serum or plasma sodium measurement (moles/volume) 141 mmol/L 135-145 Serum or plasma potassium measurement (moles/volume) 3.4 mmol/L 3.6-5.0 Serum or plasma chloride measurement (moles/volume) 105 mmol/L 98-107 Carbon dioxide 27 mmol/L 21-32 Serum or plasma anion gap determination (moles/volume) 9 mmol/L 5-14 Serum or plasma urea nitrogen measurement (mass/volume) 11 mg/dL 7-18 Serum or plasma creatinine measurement (mass/volume) 0.81 mg/dL 0.60-1.30 Serum or plasma urea nitrogen/creatinine mass ratio 14 NRG Serum or plasma creatinine measurement with calculation of estimated glomerular filtration rate > NRG Serum or plasma glucose measurement (mass/volume) 134 mg/dL 70-105 Serum or plasma calcium measurement (mass/volume) 8.2 mg/dL 8.5-10.1 Serum or plasma total bilirubin measurement (mass/volume) 0.6 mg/dL 0.1-1.0 Serum or plasma alkaline phosphatase measurement (enzymatic activity/volume) 74 U/L 40-136 Serum or plasma aspartate aminotransferase measurement (enzymatic activity/ volume) 18 U/L 5-34 Serum or plasma alanine aminotransferase measurement (enzymatic activity/volume ) 14 U/L 0-55 Serum or plasma protein measurement (mass/volume) 6.1 g/dL 6.4-8.2 Serum or plasma albumin measurement (mass/volume) 3.4 g/dL 3.2-4.5 Magnesium - 09/29/17 06:10 Magnesium 2.2 mg/dL 1.8-2.4 Lipid 1996 panel - 09/29/17 06:10 Serum or plasma triglyceride measurement (mass/volume) 101 mg/dL <150 Serum or plasma cholesterol measurement (mass/volume) 134 mg/dL < 200 Serum or plasma cholesterol in HDL measurement (mass/volume) 34 mg/ dL 40-60 Cholesterol in LDL [mass/volume] in serum or plasma by direct assay 76 mg/dL 1-129 Serum or plasma cholesterol in VLDL measurement (mass/volume) 20 mg/ dL 5-40 Capillary blood glucose measurement by glucometer (mass/volume) - 09/29/17 11: 10 Capillary blood glucose measurement by glucometer (mass/volume) 171 mg/dL 70-110 Whole blood basic metabolic panel - 10/05/17 09:35 Serum or plasma sodium measurement (moles/volume) 141 mmol/L 135-145 Serum or plasma potassium measurement (moles/volume) 3.7 mmol/L 3.6-5.0 Serum or plasma chloride measurement (moles/volume) 104 mmol/L 98-107 Carbon dioxide 27 mmol/L 21-32 Serum or plasma anion gap determination (moles/volume) 10 mmol/L 5-14 Serum or plasma urea nitrogen measurement (mass/volume) 10 mg/dL 7-18 Serum or plasma creatinine measurement (mass/volume) 0.78 mg/dL 0.60-1.30 Serum or plasma urea nitrogen/creatinine mass ratio 13 NRG Serum or plasma creatinine measurement with calculation of estimated glomerular filtration rate > NRG Serum or plasma glucose measurement (mass/volume) 99 mg/dL 70-105 Serum or plasma calcium measurement (mass/volume) 9.0 mg/dL 8.5-10.1 Magnesium - 10/05/17 09:35 Magnesium 1.8 mg/dL 1.8-2.4 Capillary blood glucose measurement by glucometer (mass/volume) - 11/01/17 17: 51 Capillary blood glucose measurement by glucometer (mass/volume) 67 mg/dL 70-110 Whole blood basic metabolic panel - 11/01/17 23:55 Serum or plasma sodium measurement (moles/volume) 143 mmol/L 135-145 Serum or plasma potassium measurement (moles/volume) 5.8 mmol/L 3.6-5.0 Serum or plasma chloride measurement (moles/volume) 114 mmol/L 98-107 Carbon dioxide 21 mmol/L 21-32 Serum or plasma anion gap determination (moles/volume) 8 mmol/L 5-14 Serum or plasma urea nitrogen measurement (mass/volume) 13 mg/dL 7-18 Serum or plasma creatinine measurement (mass/volume) 0.83 mg/dL 0.60-1.30 Serum or plasma urea nitrogen/creatinine mass ratio 16 NRG Serum or plasma creatinine measurement with calculation of estimated glomerular filtration rate > NRG Serum or plasma glucose measurement (mass/volume) 74 mg/dL 70-105 Serum or plasma calcium measurement (mass/volume) 9.1 mg/dL 8.5-10.1 Whole blood basic metabolic panel - 11/02/17 06:00 Serum or plasma sodium measurement (moles/volume) 141 mmol/L 135-145 Serum or plasma potassium measurement (moles/volume) 4.5 mmol/L 3.6-5.0 Serum or plasma chloride measurement (moles/volume) 113 mmol/L 98-107 Carbon dioxide 23 mmol/L 21-32 Serum or plasma anion gap determination (moles/volume) 5 mmol/L 5-14 Serum or plasma urea nitrogen measurement (mass/volume) 11 mg/dL 7-18 Serum or plasma creatinine measurement (mass/volume) 0.78 mg/dL 0.60-1.30 Serum or plasma urea nitrogen/creatinine mass ratio 14 NRG Serum or plasma creatinine measurement with calculation of estimated glomerular filtration rate > NRG Serum or plasma glucose measurement (mass/volume) 82 mg/dL 70-105 Serum or plasma calcium measurement (mass/volume) 8.6 mg/dL 8.5-10.1 Whole blood basic metabolic panel - 11/02/17 10:55 Serum or plasma sodium measurement (moles/volume) 140 mmol/L 135-145 Serum or plasma potassium measurement (moles/volume) 4.2 mmol/L 3.6-5.0 Serum or plasma chloride measurement (moles/volume) 108 mmol/L 98-107 Carbon dioxide 24 mmol/L 21-32 Serum or plasma anion gap determination (moles/volume) 8 mmol/L 5-14 Serum or plasma urea nitrogen measurement (mass/volume) 9 mg/dL 7-18 Serum or plasma creatinine measurement (mass/volume) 0.75 mg/dL 0.60-1.30 Serum or plasma urea nitrogen/creatinine mass ratio 12 NRG Serum or plasma creatinine measurement with calculation of estimated glomerular filtration rate > NRG Serum or plasma glucose measurement (mass/volume) 82 mg/dL 70-105 Serum or plasma calcium measurement (mass/volume) 9.0 mg/dL 8.5-10.1 BMP - 11/30/17 10:20 GLUCOSE 135 mg/dL 65-99 UREA NITROGEN (BUN) 16 mg/dL 7-25 CREATININE 0.89 mg/dL 0.70-1.33 eGFR NON-AFR. AFGHAN 97 mL/min/1.73m2 > OR=60 eGFR 112 mL/min/1.73m2 > OR=60 BUN/CREATININE RATIO NOT APPLICABLE (calc) 6-22 SODIUM 143 mmol/L 135-146 POTASSIUM 3.8 mmol/L 3.5-5.3 CHLORIDE 103 mmol/L 98-110 CARBON DIOXIDE 32 mmol/L 20-31 CALCIUM 8.5 mg/dL 8.6-10.3 LIPID PANEL - 04/16/18 08:44 CHOLESTEROL, TOTAL 168 mg/dL <200 HDL CHOLESTEROL 45 mg/dL >40 TRIGLYCERIDES 138 mg/dL <150 LDL-CHOLESTEROL 99 mg/dL (calc) NRG CHOL/HDLC RATIO 3.7 (calc) <5.0 NON HDL CHOLESTEROL 123 mg/dL (calc) <130 CMP - 04/16/18 08:44 GLUCOSE 148 mg/dL 65-99 UREA NITROGEN (BUN) 17 mg/dL 7-25 CREATININE 0.76 mg/dL 0.70-1.33 eGFR NON-AFR. AFGHAN 103 mL/min/1.73m2 > OR=60 eGFR 119 mL/min/1.73m2 > OR=60 BUN/CREATININE RATIO NOT APPLICABLE (calc) 6-22 SODIUM 141 mmol/L 135-146 POTASSIUM 4.3 mmol/L 3.5-5.3 CHLORIDE 103 mmol/L 98-110 CARBON DIOXIDE 31 mmol/L 20-31 CALCIUM 8.8 mg/dL 8.6-10.3 PROTEIN, TOTAL 6.4 g/dL 6.1-8.1 ALBUMIN 4.0 g/dL 3.6-5.1 GLOBULIN 2.4 g/dL (calc) 1.9-3.7 ALBUMIN/GLOBULIN RATIO 1.7 (calc) 1.0-2.5 BILIRUBIN, TOTAL 0.3 mg/dL 0.2-1.2 ALKALINE PHOSPHATASE 74 U/L 40-115 AST 15 U/L 10-35 ALT 11 U/L 9-46 Methicillin resistant Staphylococcus aureus (MRSA) screening culture - 13:45 Methicillin resistant Staphylococcus aureus (MRSA) screening culture NEG NRG Encounters ACCT No. Visit Date/Time Discharge Status Pt. Type Provider Facility Loc./Unit Complaint [id number] 01/15/2015 09:54:00 01/15/2015 23:59:59 CLS Outpatient NOEMI WASHBURN APRN [id number] 01/07/2015 07:56:00 01/07/2015 23:59:59 CLS Outpatient ROSELINE LUIS PHD [id number] 12/17/2014 09:21:00 12/17/2014 23:59:59 CLS Outpatient NOEMI WASHBURN APRN [id number] 10/17/2014 10:48:00 10/17/2014 23:59:59 CLS Outpatient ALYSE LIMA [id number] 10/02/2014 10:40:00 10/02/2014 23:59:59 CLS Outpatient NOEMI WASHBURN APRN [id number] 10/01/2014 08:04:00 10/01/2014 23:59:59 CLS Outpatient ROSELINE LUIS PHD [id number] 09/05/2014 11:15:00 09/05/2014 23:59:59 CLS Outpatient NOEMI WASHBURN APRN [id number] 09/03/2014 10:45:00 09/03/2014 23:59:59 CLS Outpatient YONATHAN RIOS MD [id number] 09/03/2014 09:50:00 09/03/2014 23:59:59 CLS Outpatient LEXI JOSHUAALYSE [id number] 09/03/2014 08:50:00 09/03/2014 23:59:59 CLS Outpatient NOEMI WASHBURN APRN [id number] 08/11/2014 07:54:00 08/11/2014 23:59:59 CLS Outpatient ROSELINE LUIS PHD [id number] 08/04/2014 11:36:00 08/04/2014 23:59:59 CLS Outpatient NOEMI WASHBURN APRN [id number] 08/04/2014 11:36:00 08/04/2014 23:59:59 CLS Outpatient NOEMI WASHBURN APRN [id number] 07/19/2014 07:46:00 07/19/2014 23:59:59 CLS Outpatient NADINE HARP MD [id number] 07/16/2014 08:01:00 07/16/2014 23:59:59 CLS Outpatient ROSELINE LUIS PHD [id number] 07/04/2014 10:55:00 07/04/2014 23:59:59 CLS Outpatient YONATHAN RIOS MD [id number] 06/25/2014 07:50:00 06/25/2014 23:59:59 CLS Outpatient ROSELINE LUIS PHD [id number] 06/09/2014 09:34:00 06/09/2014 23:59:59 CLS Outpatient JAZZ TREVOR STROUD [id number] 06/04/2014 11:54:00 06/04/2014 23:59:59 CLS Outpatient SP CARR APRN [id number] 06/03/2014 08:52:00 06/03/2014 23:59:59 CLS Outpatient ROSELINE LUIS PHD [id number] 05/24/2014 12:30:00 05/24/2014 23:59:59 CLS Outpatient ARIANE RODRIGUEZ APRN [id number] 05/07/2014 14:56:00 05/07/2014 23:59:59 CLS Outpatient ROSELINE LUIS PHD [id number] 05/02/2014 14:02:00 05/02/2014 23:59:59 CLS Outpatient LESLY WEAVER APRN [id number] 04/22/2014 10:01:00 04/22/2014 23:59:59 CLS Outpatient YONATHAN RIOS MD [id number] 04/16/2014 15:23:00 04/16/2014 23:59:59 CLS Outpatient ROSELINE LUIS PHD [id number] 04/02/2014 11:23:00 04/02/2014 23:59:59 CLS Outpatient MAYORGA NEVILLE GABBIE GRAF [id number] 03/25/2014 16:51:00 03/25/2014 23:59:59 CLS Outpatient ROSELINE LUIS PHD [id number] 03/10/2014 14:47:00 03/10/2014 23:59:59 CLS Outpatient ROSELINE LUIS PHD [id number] 03/04/2014 13:23:00 03/04/2014 23:59:59 CLS Outpatient NOEMI WASHBURN APRN [id number] 02/24/2014 10:18:00 02/24/2014 23:59:59 CLS Outpatient JAZZ STROUD TREVOR Genaro [id number] 02/18/2014 12:28:00 02/18/2014 23:59:59 CLS Outpatient GABBIE MAYORGA APRN [id number] 02/04/2014 15:56:00 02/04/2014 23:59:59 CLS Outpatient ROSELINE LUIS PHD [id number] 01/16/2014 16:04:00 01/16/2014 23:59:59 CLS Outpatient YONATHAN RIOS MD [id number] 01/13/2014 07:56:00 01/13/2014 23:59:59 CLS Outpatient ROSELINE LUIS PHD [id number] 12/13/2013 15:34:00 12/13/2013 23:59:59 CLS Outpatient ROSELINE LUIS PHD [id number] 11/30/2013 10:13:00 11/30/2013 23:59:59 CLS Outpatient TIERRA LOZADA GABBIE HOMAR [id number] 11/25/2013 10:27:00 11/25/2013 23:59:59 CLS Outpatient NOEMI WASHBURN APRN [id number] 11/21/2013 17:51:00 11/21/2013 23:59:59 CLS Outpatient YONATHAN RIOS MD [id number] 11/15/2013 15:53:00 11/15/2013 23:59:59 CLS Outpatient ROSELINE LUIS PHD [id number] 11/14/2013 15:53:00 11/14/2013 23:59:59 CLS Outpatient NOEMI WASHBURN APRN [id number] 11/14/2013 15:53:00 11/14/2013 23:59:59 CLS Outpatient NOEMI WASHBURN APRN [id number] 10/29/2013 13:32:00 10/29/2013 23:59:59 CLS Outpatient ROSELINE LUIS PHD [id number] 10/08/2013 15:12:00 10/08/2013 23:59:59 CLS Outpatient ROSELINE LUIS PHD [id number] 07/30/2013 10:46:00 07/30/2013 23:59:59 CLS Outpatient YONATHAN RIOS MD [id number] 07/30/2013 10:46:00 07/30/2013 23:59:59 CLS Outpatient YONATHAN RIOS MD [id number] 07/10/2013 15:36:00 07/10/2013 23:59:59 CLS Outpatient TIERRA LOZADA GABBIE GRAF [id number] 07/04/2013 16:05:00 07/04/2013 23:59:59 CLS Outpatient TREVOR SCHULZ DO [id number] 06/19/2013 14:47:00 06/19/2013 23:59:59 CLS Outpatient ROSELINE LUIS PHD [id number] 06/13/2013 16:03:00 06/13/2013 23:59:59 CLS Outpatient TREVOR SCHULZ DO [id number] 01/01/2013 16:51:00 01/01/2013 23:59:59 CLS Outpatient ROSELINE LUIS PHD [id number] 12/06/2012 17:37:00 12/06/2012 23:59:59 CLS Outpatient NOEMI WASHBURN APRN [id number] 11/02/2012 07:54:00 11/02/2012 23:59:59 CLS Outpatient [id number] 10/17/2012 08:37:00 10/17/2012 23:59:59 CLS Outpatient TREVOR SCHULZ DO [id number] 10/02/2012 14:26:00 10/02/2012 23:59:59 CLS Outpatient NOEMI WASHBURN APRN [id number] 10/02/2012 14:26:00 10/02/2012 23:59:59 CLS Outpatient NOEMI WASHBURN APRN [id number] 09/24/2012 14:46:00 09/24/2012 23:59:59 CLS Outpatient [id number] 08/21/2012 08:55:00 08/21/2012 23:59:59 CLS Outpatient ROSELINE LUIS PHD [id number] 07/13/2012 08:51:00 07/13/2012 23:59:59 CLS Outpatient ROSELINE LUIS PHD [id number] 03/15/2011 10:45:00 03/15/2011 23:59:59 CLS Outpatient NOEMI WASHBURN APRN [id number] 06/05/2013 14:39:00 Document Registration [id number] 05/23/2013 13:57:00 Document Registration [id number] 03/06/2013 07:52:00 Document Registration [id number] 05/18/2017 08:36:00 Document Registration [id number] 08/06/2018 13:23:00 08/06/2018 13:55:00 DIS Outpatient LORENA MCMAHON MD [facility] PREOP OTHER TEAR LATERAL MENISCUS [id number] 07/24/2018 11:49:00 07/24/2018 23:59:59 CLS Outpatient JANICE MURDOCK [facility] CARD CAD [id number] 07/18/2018 15:30:00 07/18/2018 23:59:59 CLS Outpatient ODALIS STOVALL MD [facility] ONC [id number] 07/04/2018 10:39:00 07/04/2018 23:59:59 CLS Preadmit NOEMI WASHBURN [facility] RAD PRE-SYNCOPE [id number] 06/13/2018 13:17:00 06/24/2018 00:01:00 DIS Outpatient ODALIS STOVALL MD [facility] ONC [id number] 05/16/2018 12:46:00 05/22/2018 00:01:00 DIS Outpatient ODALIS STOVALL MD [facility] ONC [id number] 01/25/2018 10:40:00 2018 00:01:00 DIS Outpatient ODALIS STOVALL MD [facility] ONC [id number] 11/01/2017 17:05:00 11/02/2017 15:05:00 DIS Inpatient ODALIS STOVALL MD [facility] 4TH HIGH POTASIUM [id number] 10/18/2017 08:42:00 10/30/2017 16:03:00 DIS Outpatient LYUDMILA PALENCIA MD [facility] ONC [id number] 10/05/2017 09:29:00 10/05/2017 23:59:59 CLS Outpatient JANICE MURDOCK [facility] LAB [id number] 09/27/2017 22:15:00 09/29/2017 15:25:00 DIS Inpatient NADINE HARP MD [facility] 4TH RT PNEUMONIA,HYPOXIA, VOLUME DEPLETION [id number] 09/21/2017 08:39:00 09/27/2017 00:01:00 DIS Outpatient LYUDMILA PALENCIA MD [facility] ONC [id number] 06/15/2017 09:36:00 06/24/2017 00:01:00 DIS Outpatient LYUDMILA PALENCIA MD [facility] ONC [id number] 05/03/2017 14:17:00 05/03/2017 00:01:00 DIS Outpatient LYUDMILA PALENCIA MD [facility] ONC [id number] 01/26/2017 09:34:00 02/01/2017 00:01:00 DIS Outpatient GABBIE MORALES MD [facility] ONC [id number] 01/12/2017 21:00:00 01/13/2017 05:42:00 DIS Outpatient ART ROSARIO APRN [facility] SLEEP G47.34 [id number] 12/22/2016 11:13:00 12/22/2016 23:59:59 CLS Outpatient LUKE MCMANUS MD [facility] RAD REFLUX [id number] 11/28/2016 07:42:00 11/28/2016 11:30:00 DIS Outpatient YURI EDWARDS DO [facility] SDC LYMPHOMA [id number] 11/24/2016 13:59:00 11/24/2016 14:20:00 DIS Outpatient YURI EDWARDS DO [facility] PREOP LYMPHOMA [id number] 11/02/2016 15:20:00 11/02/2016 00:01:00 DIS Outpatient GABBIE MORALES MD [facility] ONC [id number] 10/19/2016 06:53:00 10/19/2016 10:40:00 DIS Outpatient ROSEMARY OVALLE DO [facility] ENDO LUNG MASS [id number] 10/17/2016 05:48:00 10/17/2016 15:32:00 DIS Outpatient ROSEMARY OVALLE DO [facility] PREOP LUNG MASS [id number] 09/07/2016 11:49:00 09/07/2016 23:59:59 CLS Outpatient ROSEMARY OVALLE [facility] [facility] ADELA,ASTHMA [id number] 09/02/2016 14:17:00 09/02/2016 23:59:59 CLS Outpatient HIEN ROBINS FACBrady, ESPERANZA ANDERS CCDS [facility] CARD ADELA,CAD,SSS [id number] 08/04/2016 14:53:00 08/04/2016 23:59:59 CLS Outpatient GABBIE MORALES MD [facility] RAD MONOCIONAL B-CELL LYMPHOCYTOSIS [id number] 06/09/2016 14:59:00 07/04/2016 14:36:00 DIS Outpatient GABBIE MORALES MD [facility] ONC [id number] 12/03/2015 09:19:00 03/02/2016 00:01:00 DIS Outpatient GABBIE MORALES MD [facility] ONC [id number] 11/27/2015 09:06:00 12/02/2015 00:01:00 DIS Outpatient GABBIE MORALES MD [facility] ONC [id number] 10/19/2015 22:15:00 10/20/2015 17:30:00 DIS Outpatient HIEN ROBINS FACBrady, ESPERANZA ANDERS CCDS [facility] CARD CP, HYPOKALEMIA,LEUKOCYTOSIS [id number] 09/16/2015 19:28:00 09/17/2015 01:05:00 DIS Emergency DAISY HOANG MD [facility] ER NAUSEA,VOMITING, DIFFICULTY URINATING [id number] 05/05/2015 14:07:00 06/24/2015 00:01:00 DIS Outpatient GABBIE MORALES MD [facility] ONC [id number] 05/07/2015 09:56:00 05/07/2015 23:59:59 CLS Outpatient NOEMI WASHBURN [facility] RAD N/V [id number] 02/08/2015 21:50:00 02/10/2015 11:22:00 DIS Inpatient YONATHAN RIOS MD [facility] CSD CHEST PAIN, HYPOKALEMIA [id number] 01/06/2015 13:26:00 01/12/2015 00:01:00 DIS Outpatient GABBIE MORALES MD [facility] ONC [id number] 07/14/2014 13:17:00 10/12/2014 00:01:00 DIS Outpatient GABBIE MORALES MD [facility] ONC [id number] 10/08/2014 20:49:00 10/09/2014 04:30:00 DIS Outpatient NOEMI WASHBURN [facility] SLEEP ADELA [id number] 10/02/2014 12:12:00 10/02/2014 23:59:59 CLS Outpatient NOEMI WASHBURN [facility] RAD RT LEG SWELLING [id number] 09/26/2014 08:53:00 09/26/2014 12:00:00 DIS Emergency JEN BROOKS MD [facility] ER FALL BACK/RT KNEE PAIN [id number] 08/25/2014 08:11:00 08/25/2014 10:40:00 DIS Outpatient BRETT RILEY MD [facility] SDC DIARRHEA [id number] 08/20/2014 05:48:00 08/20/2014 23:59:59 CLS Outpatient BRETT RILEY MD [facility] PREOP DIARRHEA [id number] 07/25/2014 19:27:00 07/27/2014 14:33:00 DIS Inpatient YONATHAN RIOS MD [facility] 4TH DEHYDRATION ACUTE RENAL FAILURE INTRACTABLE N/V/D [id number] 06/30/2014 17:55:00 07/03/2014 15:30:00 DIS Inpatient BLANCA ROBINS, YONATHAN Ivy [facility] CSD ACUTE RENAL FAILURE; VOLUME DEPLETION;CHEST PAIN [id number] 06/24/2014 06:55:00 06/24/2014 16:00:00 DIS Outpatient HIEN ROBINS FACBrady, ESPERANZA ANDERS CCDS [facility] CATH CP,CAD,HTN [id number] 06/17/2014 10:40:00 06/17/2014 23:59:59 CLS Outpatient LURDES SCHULZ DOA K [facility] RAD CAD DIZZINESS [id number] 05/14/2014 19:32:00 05/16/2014 12:49:00 DIS Outpatient HIEN ROBINS FACBrady, ESPERANZA ANDERS CCDS [facility] CATH CHEST PAIN, ELEVATED TROPONIN [id number] 11/26/2013 10:11:00 11/26/2013 23:59:59 CLS Outpatient NOEMI WASHBURN [facility] RAD MEMORY LOSS [id number] 11/02/2013 10:13:00 11/02/2013 13:37:00 DIS Emergency JOSIAH ROBINS, NELLY R [facility] ER SOA NOT FEELING WELL [id number] 05/29/2013 16:46:00 05/29/2013 20:00:00 DIS Emergency VIKTOR ROBINS, DAISY [place] [facility] ER FALL [id number] 04/05/2013 10:26:00 04/05/2013 13:57:00 DIS Emergency CECILIA ROBINS, JEN Lam [facility] ER V/D [id number] 08/08/2018 12:00:00 PEN Clementina MCMAHON MD, LORENA Soto [facility] OTHER TEAR LATERAL MENISCUS [id number] 01/10/2018 07:08:00 Document Registration [id number] 01/10/2018 07:08:00 Document Registration [id number] 01/10/2018 07:08:00 Document Registration [id number] 01/10/2018 07:08:00 Document Registration [id number] 01/10/2018 07:08:00 Document Registration [id number] 08/23/2012 18:22:00 Document Registration [id number] 04/20/2012 10:56:00 Document Registration [id number] 04/06/2012 10:36:00 Document Registration [id number] 03/27/2012 18:05:00 Document Registration [id number] 03/23/2012 13:48:00 Document Registration [id number] 06/30/2011 18:33:00 Document Registration [id number] 04/11/2011 08:20:00 Document Registration [id number] 01/31/2011 10:21:00 Document Registration [id number] 12/23/2010 09:18:00 Document Registration [id number] 12/13/2010 17:26:00 Document Registration [id number] 09/16/2010 05:46:00 Document Registration [id number] 09/13/2010 09:14:00 Document Registration [id number] 08/25/2010 20:45:00 Document Registration [id number] 08/16/2010 08:22:00 Document Registration [id number] 07/27/2010 12:47:00 Document Registration [id number] 07/13/2010 15:35:00 Document Registration [id number] 04/09/2010 05:40:00 Document Registration [id number] 04/06/2010 09:07:00 Document Registration [id number] 03/17/2010 13:44:00 Document Registration [id number] 03/17/2010 10:39:00 Document Registration [id number] 03/03/2010 17:39:00 Document Registration [id number] 03/02/2010 15:18:00 Document Registration [id number] 12/16/2009 12:50:00 Document Registration [id number] 12/08/2009 14:48:00 Document Registration [id number] 09/16/2009 10:16:00 Document Registration [id number] 06/16/2009 08:00:00 Document Registration [id number] 03/05/2009 13:42:00 Document Registration [id number] 01/07/2009 10:21:00 Document Registration [id number] 12/16/2008 20:20:00 Document Registration [id number] 07/20/2006 12:30:00 Document Registration [id number] 05/04/2006 14:01:00 Document Registration [id number] 04/26/2018 14:45:00 04/26/2018 23:59:59 CLS Outpatient NOEMI WASHBURN APRN [facility] [id number] 04/16/2018 08:20:00 Document Registration [id number] 11/30/2017 10:20:00 Document Registration [id number] 05/07/2015 09:57:36 ACT Document Registration
--- NOTE | 2018-08-08 18:52 | OPERATIVE REPORT ---
DATE OF SERVICE: 08/08/2018 PREOPERATIVE DIAGNOSES: 1. Right knee lateral meniscus tear. 2. 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 3. Right knee chondromalacia of the patella. POSTOPERATIVE DIAGNOSES: 1. Right knee lateral meniscus tear. 2. 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 3. Right knee chondromalacia of the patella. 4. Right knee medial meniscus tear. 5. Right knee chondromalacia of medial femoral condyle. PROCEDURES: 1. Right knee arthroscopic partial lateral meniscectomy. 2. Right knee arthroscopic partial medial meniscectomy. 3. Right knee arthroscopic chondroplasty of the lateral femoral condyle. 4. Right knee arthroscopic chondroplasty of the medial femoral condyle. 5. Right knee arthroscopic chondroplasty of the patella. SURGEON: Michele Mcmahon MD NURSES ASSISTANT: RU Rodriguez, who assisted throughout the procedure and closed the incisions. ANESTHESIA: General endotracheal by Chester Parker CRNA TOURNIQUET TIME: Is not applicable. ESTIMATED BLOOD LOSS: Minimal. DRAINS: None. COMPLICATIONS: None. POSTOPERATIVE PLAN: Routine arthroscopy protocol. The patient was transferred to the recovery room in awake and stable condition. STATEMENT OF MEDICAL NECESSITY: The patient is a 53-year-old gentleman with complaints of right lateral knee pain, catching, locking and swelling. Radiographs revealed moderate lateral compartment arthrosis. It was felt that he likely had a degenerative lateral meniscus tear with associated chondromalacia of his lateral patellofemoral compartments. He understood this would not alleviate his arthritic type symptoms and could help with his mechanical symptoms due to functional impairment and failure to improve with conservative measures. The patient elected to proceed with surgical intervention. Examination under anesthesia revealed range of motion of 0/3/130 with negative Carmel, negative anterior and posterior drawer. No varus valgus laxity, negative pivot shift. Arthroscopic findings, the patella demonstrated grade II chondral flaps centrally in a 15 x 15 area. The trochlea demonstrated no gross chondral abnormalities. The medial and lateral gutters were clear. The medial compartment demonstrated a horizontal cleavage tear of the posterior horn of the medial meniscus involving approximately one-third of the posterior horn. In addition, there were grade II chondral flaps of the central weightbearing portion of the femoral condyle in a 10 x 10 area. The ACL and PCL were intact. Lateral compartment demonstrated a complex tear of the posterior horn of the lateral meniscus involving the entirety of the posterior horn. In addition, there were diffuse grade IV changes of the tibial plateau and femoral condyle and a corresponding 10 x 15 area of the femoral condyle demonstrated grade III chondral flaps at the periphery. PROCEDURE IN DETAIL: After risks and benefits of the procedure were discussed and questions were answered and informed consent was signed and placed on the chart, the operative site was confirmed in the preoperative holding area initialed by the surgeon. The patient was transferred to the operating room. After adequate levels of general endotracheal anesthetic were obtained, a timeout was called confirming the operative site. The right lower extremity was prepped and draped in the usual sterile fashion. The knee joint was injected with 60 mL of fluid. Standard inferolateral portal was placed with the arthroscope under direct visualization, inferior medial portal was created. The menisci and cruciates were carefully probed with the above findings noted. The unstable chondral flaps of the patella were debrided with shaver back to a stable edge. Scope was then redirected into the medial compartment where the unstable medial meniscus tear was debrided with the biter and shaver removing approximately one-third of the posterior horn. The unstable chondral flaps of the medial femoral condyle were debrided with shaver back to a stable edge. Scope was then redirected into the lateral compartment where the posterior horn of the lateral meniscus was debrided with a biter and shaver leaving no posterior horn. The unstable chondral flaps in the lateral femoral condyle were debrided with a shaver back to a stable edge. The knee was copiously irrigated. Portal sites were closed with 4-0 nylon in simple interrupted fashion. The knee was injected with Duramorph. The port sites were infiltrated with plain Marcaine. A soft dressing was applied and the patient was transferred to the recovery room awake and in stable condition. Job ID: [id number] DocumentID: [id number] Dictated Date: 08/08/2018 11:55:27 Personnel Specialist Date: 08/08/2018 18:51:22 Dictated By: MICHELE MCMAHON MD
== END 2018-08-08 14:20 | disposition home or self-care (01) ==
LOC: SDC 10:04
PROVIDERS: ATTEND Orthopaedic Surgery
DX: M23.251 Derangement of posterior horn of lateral meniscus due to old tear or injury, right knee (principal); M23.221 Derangement of posterior horn of medial meniscus due to old tear or injury, right knee; M22.41 Chondromalacia patellae, right knee; E11.9 Type 2 diabetes mellitus without complications; I10 Essential (primary) hypertension; E78.5 Hyperlipidemia, unspecified; E66.01 Morbid (severe) obesity due to excess calories; F31.9 Bipolar disorder, unspecified; F41.9 Anxiety disorder, unspecified; I25.10 Atherosclerotic heart disease of native coronary artery without angina pectoris; G40.909 Epilepsy, unspecified, not intractable, without status epilepticus; G47.33 Obstructive sleep apnea (adult) (pediatric); I25.2 Old myocardial infarction; Z86.73 Personal history of transient ischemic attack (TIA), and cerebral infarction without residual deficits; M81.0 Age-related osteoporosis without current pathological fracture; J45.909 Unspecified asthma, uncomplicated; C85.90 Non-Hodgkin lymphoma, unspecified, unspecified site; F10.20 Alcohol dependence, uncomplicated; M06.9 Rheumatoid arthritis, unspecified; K21.9 Gastro-esophageal reflux disease without esophagitis; Z85.828 Personal history of other malignant neoplasm of skin; Z79.84 Long term (current) use of oral hypoglycemic drugs; Z79.82 Long term (current) use of aspirin; Z79.899 Other long term (current) drug therapy; Z95.5 Presence of coronary angioplasty implant and graft; Z68.43 Body mass index [BMI] 50.0-59.9, adult
CPT/HCPCS: 82962

== ENCOUNTER 2018-10-03 07:07 | Day surgery (SDC) | payer MEDICARE ==
--- NOTE | 2018-09-24 11:51 | HISTORY AND PHYSICAL ---
DATE OF SERVICE: DATE OF ADMISSION: 10/03/2018. This will be for outpatient surgery on 10/03/2018 for left knee arthroscopy. HISTORY OF PRESENT ILLNESS: The patient is a 53-year-old gentleman with complaints of progressive worsening left medial knee pain, catching, locking and swelling. He has undergone treatment with injections in the past without relief. Radiographs revealed mild medial and patellofemoral joint space narrowing with no evidence of fracture or dislocation due to functional impairment and failure to improve with conservative measures. The patient elected to proceed with surgical intervention. REVIEW OF SYSTEMS: No chest pain, no shortness of breath. No dysuria. PAST MEDICAL HISTORY: Neck pain, headaches, , diabetes, morbid obesity, basal cell carcinoma, bipolar anxiety, alcohol dependence, COPD, lymphocytosis, coronary artery disease, renal insufficiency, seizure disorder, myocardial infarction, TIA, epididymitis, non-Hodgkin's lymphoma. PAST SURGICAL HISTORY: Coronary stent placement, skin cancer removal, right knee arthroscopy, left carpal tunnel. FAMILY HISTORY: Significant for cancer. PRIMARY CARE PROVIDER: [facility]. MEDICATIONS: NovoLog, furosemide, metformin, oxycodone, fluticasone, gabapentin, Zetia, Nexium, Singulair, Lantus, ProAir, albuterol, aspirin, clopidogrel, metoprolol, Spiriva inhaler, morphine, Seroquel, Abilify, Depakote, nortriptyline. SOCIAL HISTORY: Drinks beer occasionally. Denies tobacco use. PHYSICAL EXAMINATION: GENERAL: The patient is well developed, well-nourished, in no acute distress. HEENT: Normocephalic, atraumatic. Pupils are equal, round, reactive. Oropharynx is clear. NECK: Supple, no lymphadenopathy. LUNGS: Clear to auscultation bilaterally. HEART: Regular rate and rhythm. ABDOMEN: Soft, nontender, nondistended. EXTREMITIES: Left knee demonstrates tenderness on the medial joint line. He has pain even with Ruben's. No varus valgus laxity, negative anterior and posterior drawer. Moderate effusion is noted. He has pain with patellar loading. IMPRESSION: Left knee medial meniscal tear with associated chondromalacia. PLAN: Left knee arthroscopy with partial medial meniscectomy, chondroplasty. The risks, benefits, options, ramifications and recovery were discussed at length with the patient. He understands and wishes to proceed. Job ID: [id number] DocumentID: [id number] Dictated Date: 09/24/2018 11:14:05 Shellfish Meat Separator Operator Date: 09/24/2018 11:50:40 Dictated By: LORENA MCMAHON MD
[~2018-10-03] VITALS: Ht 170.2 cm; Wt 159.9 kg
[2018-10-03 07:14] VITALS: BP 207/87
[2018-10-03] MEDS ORDERED: LACTATED RINGERS 1,000 ML IV PRN (07:21)
--- NOTE | 2018-10-03 07:24 | Progress Note-Pre Operative ---
Pre-Operative Progress Note H&P Reviewed The H&P was reviewed, patient examined and no changes noted. Date Seen by Provider: Oct 03, 2018 Time Seen by Provider: 07:11 Date H&P Reviewed: Oct 03, 2018 Time H&P Reviewed: 07:11 Pre-Operative Diagnosis: left knee medial meniscus tear and chondromalacia LORENA MCMAHON MD Oct 03, 2018 07:24
--- NOTE | 2018-10-03 07:25 | Progress Note-Post Operative ---
Post-Operative Progess Note Surgeon (s)/Marine Propulsion Technician (s) Surgeon LORENA MCMAHON MD Marine Propulsion Technician: mi Alatorre Pre-Operative Diagnosis left knee medial meniscus tear and chondromalacia Post-Operative Diagnosis left knee medial meniscus tear and chondromalacia of the medial femoral condyle and patella Procedure & Operative Findings Date of Procedure 10/03/18 Procedure Performed/Findings left knee arthroscopic partial medial meniscectomy and chondroplasty of the medial femoral condyle and patella Anesthesia Type GETA Estimated Blood Loss Estimated blood loss (mL): minimal Specimens/Packing Specimens Removed none Packing: none LORENA MCMAHON MD Oct 03, 2018 07:25
[2018-10-03] MEDS ORDERED: BUPIVACAINE 0.25% 30 ML (SENSORCAINE) VIAL ONE (07:29)
[2018-10-03] MEDS ORDERED: morphine PF (DURAMORPH) 10 MG/10 ML AMP ONE (07:29)
[2018-10-03] MEDS ORDERED: ceFAZolin INJECTION 1,000 MG in NS (IVPB) 50 ML IV ONE (07:30)
[2018-10-03] MEDS ORDERED: MIDAZOLAM 2 MG/2 ML (VERSED) VIAL ONE (07:32)
[2018-10-03] MEDS ORDERED: LIDOCAINE PF 2% 5 ML (XYLOCAINE) VIAL ONE (07:32)
[2018-10-03] MEDS ORDERED: ONDANSETRON 4 MG/2 ML (SDV) Z0FRAN ONE (07:32)
[2018-10-03] MEDS ORDERED: fentaNYL INJECTION 100 MCG/2 ML AMP ONE (07:32)
[2018-10-03] MEDS ORDERED: proPOfol 200 MG/20 ML (DIPRIVAN) VIAL IV ONE (07:32)
[2018-10-03] MEDS ORDERED: FAMOTIDINE 20MG/2ML IV (PEPCID) IV ONE (07:45)
[2018-10-03] MEDS ORDERED: oxyCODONE/APAP 10/325MG (PERCOCET 10) TABLET PO PRN (07:45)
[2018-10-03] MEDS ORDERED: LABETALOL HCL 20 MG/4 ML VIAL ONE (08:04)
[2018-10-03] MEDS ORDERED: SEVOFLURANE (ULTANE) 15 ML INHAL SOLN ONE (08:46)
[2018-10-03] MEDS ORDERED: morphine INJ 10 MG/ML 1ML (SYR OR VIAL) IVP ONE (09:00)
[2018-10-03] MEDS ORDERED: MEPERIDINE (DEMEROL) INJ 50 MG/ML IVP ONE (09:00)
[2018-10-03] MEDS ORDERED: ONDANSETRON 4 MG/2 ML (SDV) Z0FRAN IVP PRN (09:00)
--- NOTE | 2018-10-03 09:52 | Anesthesia-General Post-Op ---
General Patient Condition Mental Status/LOC: Same as Preop Cardiovascular: Satisfactory Nausea/Vomiting: Absent Respiratory: Satisfactory Pain: Controlled Complications: Absent Post Op Complications Complications None Follow Up Care/Instructions Patient Instructions None needed. Anesthesia/Patient Condition Patient Condition Patient is doing well, no complaints, stable vital signs, no apparent adverse anesthesia problems. No complications reported per nursing. NELI CAMP CRNA Oct 03, 2018 09:52
[2018-10-03 09:55] VITALS: BP 111/55
--- NOTE | 2018-10-03 09:55 | NUR ---
TO AMB SURG FROM PAR PER CART. AWAKE, BUT DROWSY. SAO2 88-89% ON ROOM AIR. O2 PLACED PER NC AT 2L. DENIES COMPLAINTS. CMS CHECKS WNL TO LEFT KNEE, ELEVATED, ICE PACK ON KNEE, DSG D/I.
[2018-10-03 10:25] VITALS: BP 123/67
--- NOTE | 2018-10-03 10:40 | NUR ---
NO CHANGE IN SITE, CMS, OR PAIN ASSESSMENTS. REQUESTING DISMISSAL.
[2018-10-03 10:55] VITALS: BP 134/70
[2018-10-03 11:05] VITALS: BP 134/70
--- NOTE | 2018-10-03 11:05 | NUR ---
SAO2 96% ON ROOM AIR. PT REFUSED PRINTED PERCOCET SCRIPT. STATES THIS IS ONE OF HIS HOME MEDS ALREADY.
--- NOTE | 2018-10-03 13:20 | OPERATIVE REPORT ---
DATE OF SERVICE: 10/03/2018 PREOPERATIVE DIAGNOSES: 1. Left knee medial meniscus tear. 2. Left knee chondromalacia of the medial femoral condyle. POSTOPERATIVE DIAGNOSES: 1. Left knee medial meniscus tear. 2. Left knee chondromalacia of the medial femoral condyle. 3. Left knee chondromalacia of the patella. PROCEDURES: 1. Left knee arthroscopic partial medial meniscectomy. 2. Left knee arthroscopic chondroplasty of the medial femoral condyle. 3. Left knee arthroscopic chondroplasty of the patella. SURGEON: Michele Mcmahon MD. PERSONAL FITNESS MANAGER: Chester Alatorre, who assisted throughout the procedure and closed the incisions. ANESTHESIA: General endotracheal by Jerman Lucia CRNA. TOURNIQUET TIME: Not applicable. ESTIMATED BLOOD LOSS: Minimal. DRAINS: None. COMPLICATIONS: None. POSTOPERATIVE PLAN: Routine arthroscopy protocol. The patient was transferred to the recovery room awake and stable condition. STATEMENT OF MEDICAL NECESSITY: The patient is a 53-year-old gentleman with complaints of left medial knee pain, catching, locking and swelling. He is tender along the medial joint line pain with Ruben's. It is felt that he likely had a medial meniscus tear with associated chondromalacia and due to functional impairment and failure to improve with conservative measures, the patient elected to proceed with surgical intervention. Examination under anesthesia revealed range of motion of 0/0/130 with a negative Carmel, negative anterior and posterior drawer. No varus valgus laxity and negative pivot shift. On arthroscopic findings, the patella demonstrated grade II chondral flap centrally in a 10 x 10 area. The trochlea demonstrated no gross chondral abnormalities. The medial and lateral gutters were clear. The lateral compartment demonstrated no meniscus or chondral pathology. ACL and PCL were intact. The medial compartment demonstrated grade III chondral flap anteriorly in a 20 x 20 area on the femoral condyle. The posterior horn and body of the medial meniscus demonstrated a complex tear involving approximately 1/3 of the posterior horn and body. DESCRIPTION OF PROCEDURE: After risks and benefits of procedure were discussed and questions were answered, an informed consent was signed and placed on the chart. The operative site was confirmed in the preoperative holding area and initialed by the surgeon. The patient was then transported to the operating room and after adequate levels of general endotracheal anesthetic were obtained, a timeout was called confirming the operative site. An examination under anesthesia was performed with the above findings noted. Left lower extremity was prepped and draped in the usual sterile fashion. The knee joint was injected with 60 mL of fluid. A standard inferolateral portal was placed with the arthroscope under direct visualization, inferior medial portal was created. The menisci and cruciates were carefully probed with the above findings noted. The unstable chondral flaps on the patella were debrided with shaver back to a stable edge. Scope was then redirected into the medial compartment and the unstable chondral flaps in the medial femoral condyle were debrided with shaver back to a stable edge. The posterior horn of the medial meniscus and body of the medial meniscus were debrided with a biter and shaver to remove approximately 1/3 of the posterior horn and body. The knee was copiously irrigated. The port sites were closed with 4-0 nylon in a simple interrupted fashion. The knee was injected with Duramorph. The portal sites were infiltrated with plain Marcaine. A soft dressing was applied and the patient was transferred to the recovery room awake and in stable condition. Job ID: [id number] DocumentID: [id number] Dictated Date: 10/03/2018 08:55:56 Trail Construction Worker Date: 10/03/2018 13:19:09 Dictated By: MICHELE MCMAHON MD
== END 2018-10-03 11:05 | disposition home or self-care (01) ==
LOC: SDC 07:07
PROVIDERS: ATTEND Orthopaedic Surgery
DX: M23.222 Derangement of posterior horn of medial meniscus due to old tear or injury, left knee (principal); Z11.2 Encounter for screening for other bacterial diseases; M22.42 Chondromalacia patellae, left knee; E11.40 Type 2 diabetes mellitus with diabetic neuropathy, unspecified; E66.01 Morbid (severe) obesity due to excess calories; F31.9 Bipolar disorder, unspecified; F41.9 Anxiety disorder, unspecified; J44.9 Chronic obstructive pulmonary disease, unspecified; I25.10 Atherosclerotic heart disease of native coronary artery without angina pectoris; G40.909 Epilepsy, unspecified, not intractable, without status epilepticus; I25.2 Old myocardial infarction; Z86.73 Personal history of transient ischemic attack (TIA), and cerebral infarction without residual deficits; Z95.5 Presence of coronary angioplasty implant and graft; Z85.828 Personal history of other malignant neoplasm of skin; F10.20 Alcohol dependence, uncomplicated; C85.90 Non-Hodgkin lymphoma, unspecified, unspecified site; Z79.899 Other long term (current) drug therapy; Z79.4 Long term (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; I10 Essential (primary) hypertension; K21.9 Gastro-esophageal reflux disease without esophagitis; G47.33 Obstructive sleep apnea (adult) (pediatric); F17.290 Nicotine dependence, other tobacco product, uncomplicated; Z68.43 Body mass index [BMI] 50.0-59.9, adult
CPT/HCPCS: 82962; 87081

== ENCOUNTER → 2018-10-16 | Outpatient (RCR) | payer MEDICARE, OTHER ==
[2018-07-18 15:49] LABS: BASOPHILS # (AUTO) 0.1 10^3/uL (0.0-0.1); BASOPHILS % (AUTO) 1 % (0-10); EOSINOPHILS # (AUTO) 0.6 10^3/uL (0.0-0.3); EOSINOPHILS % (AUTO) 7 % (0-10); HEMATOCRIT 38 % (40-54); HEMOGLOBIN 11.4 G/DL (13.3-17.7); LYMPHOCYTES # (AUTO) 1.4 X 10^3 (1.0-4.0); LYMPHOCYTES % (AUTO) 16 % (12-44); MEAN CORPUSCULAR HEMOGLOBIN 25 PG (25-34); MEAN CORPUSCULAR HGB CONC 30 G/DL (32-36); MEAN CORPUSCULAR VOLUME 83 FL (80-99); MEAN PLATELET VOLUME 10.3 FL (7.4-10.4); MONOCYTES # (AUTO) 0.8 X 10^3 (0.0-1.0); MONOCYTES % (AUTO) 9 % (0-12); NEUTROPHILS % (AUTO) 68 % (42-75); PLATELET COUNT 292 10^3/uL (130-400); RED BLOOD COUNT 4.56 10^6/uL (4.35-5.85); RED CELL DISTRIBUTION WIDTH 20.3 % (10.0-14.5); WHITE BLOOD COUNT 8.9 10^3/uL (4.3-11.0)
[2018-07-18 16:09] LABS: ALANINE AMINOTRANSFERASE 13 U/L (0-55); ALBUMIN 4.1 GM/DL (3.2-4.5); ALKALINE PHOSPHATASE 80 U/L (40-136); BILIRUBIN,TOTAL 0.3 MG/DL (0.1-1.0); BUN/CREATININE RATIO 15; CALCIUM 9.2 MG/DL (8.5-10.1); CARBON DIOXIDE 27 MMOL/L (21-32); CHLORIDE 103 MMOL/L (98-107); GFR ESTIMATED > 60; GLUCOSE 275 MG/DL (70-105); POTASSIUM 3.3 MMOL/L (3.6-5.0); SODIUM 144 MMOL/L (135-145); URIC ACID 7.5 MG/DL (2.6-7.2)
[2018-09-12 13:19] LABS: BASOPHILS % (AUTO) 0 % (0-10); EOSINOPHILS # (AUTO) 0.5 10^3/uL (0.0-0.3); EOSINOPHILS % (AUTO) 6 % (0-10); HEMATOCRIT 42 % (40-54); HEMOGLOBIN 13.1 G/DL (13.3-17.7); LYMPHOCYTES # (AUTO) 2.1 X 10^3 (1.0-4.0); LYMPHOCYTES % (AUTO) 21 % (12-44); MEAN CORPUSCULAR HEMOGLOBIN 27 PG (25-34); MEAN CORPUSCULAR HGB CONC 32 G/DL (32-36); MEAN CORPUSCULAR VOLUME 87 FL (80-99); MEAN PLATELET VOLUME 10.7 FL (7.4-10.4); MONOCYTES # (AUTO) 0.9 X 10^3 (0.0-1.0); MONOCYTES % (AUTO) 9 % (0-12); NEUTROPHILS # (AUTO) 6.3 X 10^3 (1.8-7.8); NEUTROPHILS % (AUTO) 64 % (42-75); PLATELET COUNT 238 10^3/uL (130-400); RED BLOOD COUNT 4.79 10^6/uL (4.35-5.85); RED CELL DISTRIBUTION WIDTH 17.1 % (10.0-14.5); WHITE BLOOD COUNT 9.8 10^3/uL (4.3-11.0)
[2018-09-12 13:40] LABS: ALANINE AMINOTRANSFERASE 13 U/L (0-55); ALKALINE PHOSPHATASE 88 U/L (40-136); BILIRUBIN,TOTAL 0.4 MG/DL (0.1-1.0); BUN/CREATININE RATIO 13; CALCIUM 8.8 MG/DL (8.5-10.1); CARBON DIOXIDE 27 MMOL/L (21-32); CHLORIDE 102 MMOL/L (98-107); CREATININE SERUM 0.96 MG/DL (0.60-1.30); GFR ESTIMATED > 60; GLUCOSE 225 MG/DL (70-105); POTASSIUM 3.4 MMOL/L (3.6-5.0); SODIUM 141 MMOL/L (135-145); TOTAL PROTEIN 6.9 GM/DL (6.4-8.2); URIC ACID 6.1 MG/DL (2.6-7.2)
[~2018-10-16] MED LIST changes: +LOSA50TA63 PO; -LOSA50TA7 PO
[2018-10-16 14:50] LABS: BASOPHILS % (AUTO) 0 % (0-10); EOSINOPHILS # (AUTO) 0.4 10^3/uL (0.0-0.3); EOSINOPHILS % (AUTO) 5 % (0-10); HEMATOCRIT 41 % (40-54); HEMOGLOBIN 13.4 G/DL (13.3-17.7); LYMPHOCYTES # (AUTO) 1.6 X 10^3 (1.0-4.0); LYMPHOCYTES % (AUTO) 18 % (12-44); MEAN CORPUSCULAR HEMOGLOBIN 29 PG (25-34); MEAN CORPUSCULAR HGB CONC 33 G/DL (32-36); MEAN CORPUSCULAR VOLUME 88 FL (80-99); MONOCYTES # (AUTO) 0.8 X 10^3 (0.0-1.0); MONOCYTES % (AUTO) 10 % (0-12); NEUTROPHILS # (AUTO) 5.7 X 10^3 (1.8-7.8); NEUTROPHILS % (AUTO) 67 % (42-75); PLATELET COUNT 282 10^3/uL (130-400); RED BLOOD COUNT 4.64 10^6/uL (4.35-5.85); RED CELL DISTRIBUTION WIDTH 15.7 % (10.0-14.5); WHITE BLOOD COUNT 8.5 10^3/uL (4.3-11.0)
== END | disposition home or self-care (01) ==
LOC: ONC 07-18 15:30
PROVIDERS: ATTEND Internal Medicine Hematology & Oncology
DX: C91.10 Chronic lymphocytic leukemia of B-cell type not having achieved remission (principal); I25.10 Atherosclerotic heart disease of native coronary artery without angina pectoris; E87.6 Hypokalemia; I10 Essential (primary) hypertension; E78.5 Hyperlipidemia, unspecified; E11.9 Type 2 diabetes mellitus without complications; J44.9 Chronic obstructive pulmonary disease, unspecified; G47.30 Sleep apnea, unspecified; Z79.899 Other long term (current) drug therapy; E66.01 Morbid (severe) obesity due to excess calories; Z68.43 Body mass index [BMI] 50.0-59.9, adult; Z95.5 Presence of coronary angioplasty implant and graft; Z45.2 Encounter for adjustment and management of vascular access device
CPT/HCPCS: 36591; 80053; 83615; 84550; 85025; 96523

== ENCOUNTER 2019-01-02 12:51 | Outpatient (RCR) | payer MEDICARE, OTHER ==
[2018-11-07 13:21] LABS: BASOPHILS % (AUTO) 0 % (0-10); EOSINOPHILS # (AUTO) 0.4 10^3/uL (0.0-0.3); EOSINOPHILS % (AUTO) 4 % (0-10); HEMATOCRIT 41 % (40-54); HEMOGLOBIN 13.3 G/DL (13.3-17.7); LYMPHOCYTES # (AUTO) 1.4 X 10^3 (1.0-4.0); LYMPHOCYTES % (AUTO) 16 % (12-44); MEAN CORPUSCULAR HEMOGLOBIN 29 PG (25-34); MEAN CORPUSCULAR HGB CONC 33 G/DL (32-36); MEAN CORPUSCULAR VOLUME 89 FL (80-99); MEAN PLATELET VOLUME 9.7 FL (7.4-10.4); MONOCYTES # (AUTO) 0.9 X 10^3 (0.0-1.0); MONOCYTES % (AUTO) 10 % (0-12); NEUTROPHILS # (AUTO) 6.3 X 10^3 (1.8-7.8); NEUTROPHILS % (AUTO) 71 % (42-75); PLATELET COUNT 405 10^3/uL (130-400); RED CELL DISTRIBUTION WIDTH 15.2 % (10.0-14.5); WHITE BLOOD COUNT 8.9 10^3/uL (4.3-11.0)
[2018-11-07 13:40] LABS: ALANINE AMINOTRANSFERASE 17 U/L (0-55); ALBUMIN 4.1 GM/DL (3.2-4.5); ALKALINE PHOSPHATASE 84 U/L (40-136); BILIRUBIN,TOTAL 0.4 MG/DL (0.1-1.0); BUN/CREATININE RATIO 19; CALCIUM 9.3 MG/DL (8.5-10.1); CARBON DIOXIDE 25 MMOL/L (21-32); CHLORIDE 106 MMOL/L (98-107); CREATININE SERUM 0.84 MG/DL (0.60-1.30); GFR ESTIMATED > 60; GLUCOSE 113 MG/DL (70-105); POTASSIUM 4.3 MMOL/L (3.6-5.0); SODIUM 142 MMOL/L (135-145); URIC ACID 5.2 MG/DL (2.6-7.2)
[2019-01-02 13:22] LABS: BASOPHILS % (AUTO) 0 % (0-10); EOSINOPHILS # (AUTO) 0.3 10^3/uL (0.0-0.3); EOSINOPHILS % (AUTO) 3 % (0-10); HEMATOCRIT 41 % (40-54); HEMOGLOBIN 13.3 G/DL (13.3-17.7); LYMPHOCYTES # (AUTO) 1.6 X 10^3 (1.0-4.0); LYMPHOCYTES % (AUTO) 20 % (12-44); MEAN CORPUSCULAR HEMOGLOBIN 30 PG (25-34); MEAN CORPUSCULAR HGB CONC 32 G/DL (32-36); MEAN CORPUSCULAR VOLUME 92 FL (80-99); MEAN PLATELET VOLUME 10.1 FL (7.4-10.4); MONOCYTES # (AUTO) 0.7 X 10^3 (0.0-1.0); MONOCYTES % (AUTO) 9 % (0-12); NEUTROPHILS # (AUTO) 5.3 X 10^3 (1.8-7.8); NEUTROPHILS % (AUTO) 68 % (42-75); PLATELET COUNT 310 10^3/uL (130-400); RED CELL DISTRIBUTION WIDTH 13.8 % (10.0-14.5); WHITE BLOOD COUNT 7.8 10^3/uL (4.3-11.0)
[2019-01-02 13:45] LABS: ALANINE AMINOTRANSFERASE 25 U/L (0-55); ALBUMIN 3.7 GM/DL (3.2-4.5); ALKALINE PHOSPHATASE 83 U/L (40-136); BILIRUBIN,TOTAL 0.2 MG/DL (0.1-1.0); BUN/CREATININE RATIO 11; CALCIUM 9.2 MG/DL (8.5-10.1); CARBON DIOXIDE 29 MMOL/L (21-32); CHLORIDE 102 MMOL/L (98-107); CREATININE SERUM 0.87 MG/DL (0.60-1.30); GFR ESTIMATED > 60; GLUCOSE 188 MG/DL (70-105); POTASSIUM 4.2 MMOL/L (3.6-5.0); SODIUM 139 MMOL/L (135-145); TOTAL PROTEIN 6.6 GM/DL (6.4-8.2); URIC ACID 3.5 MG/DL (2.6-7.2)
== END 2019-02-05 | disposition home or self-care (01) ==
LOC: ONC 12:51
PROVIDERS: ATTEND Internal Medicine Hematology & Oncology
DX: C91.10 Chronic lymphocytic leukemia of B-cell type not having achieved remission (principal); I25.10 Atherosclerotic heart disease of native coronary artery without angina pectoris; E87.6 Hypokalemia; I10 Essential (primary) hypertension; E78.5 Hyperlipidemia, unspecified; E11.9 Type 2 diabetes mellitus without complications; J44.9 Chronic obstructive pulmonary disease, unspecified; G47.30 Sleep apnea, unspecified; Z79.899 Other long term (current) drug therapy; E66.01 Morbid (severe) obesity due to excess calories; Z68.43 Body mass index [BMI] 50.0-59.9, adult; Z95.5 Presence of coronary angioplasty implant and graft
CPT/HCPCS: 36591; 80053; 83615; 84550; 85025; 96523

== ENCOUNTER 2019-05-01 14:02 | Outpatient (RCR) | payer MEDICARE, OTHER ==
[2019-03-06 14:43] LABS: BASOPHILS % (AUTO) 0 % (0-10); EOSINOPHILS # (AUTO) 0.2 10^3/uL (0.0-0.3); EOSINOPHILS % (AUTO) 2 % (0-10); HEMATOCRIT 41 % (40-54); HEMOGLOBIN 13.5 G/DL (13.3-17.7); LYMPHOCYTES # (AUTO) 2.3 X 10^3 (1.0-4.0); LYMPHOCYTES % (AUTO) 22 % (12-44); MEAN CORPUSCULAR HEMOGLOBIN 29 PG (25-34); MEAN CORPUSCULAR HGB CONC 33 G/DL (32-36); MEAN CORPUSCULAR VOLUME 89 FL (80-99); MEAN PLATELET VOLUME 11.1 FL (7.4-10.4); MONOCYTES # (AUTO) 0.9 X 10^3 (0.0-1.0); MONOCYTES % (AUTO) 9 % (0-12); NEUTROPHILS # (AUTO) 6.9 X 10^3 (1.8-7.8); NEUTROPHILS % (AUTO) 67 % (42-75); PLATELET COUNT 275 10^3/uL (130-400); RED CELL DISTRIBUTION WIDTH 14.2 % (10.0-14.5); WHITE BLOOD COUNT 10.3 10^3/uL (4.3-11.0)
[2019-03-06 15:10] LABS: ALANINE AMINOTRANSFERASE 15 U/L (0-55); ALKALINE PHOSPHATASE 73 U/L (40-136); BILIRUBIN,TOTAL 0.5 MG/DL (0.1-1.0); BUN/CREATININE RATIO 15; CALCIUM 9.2 MG/DL (8.5-10.1); CARBON DIOXIDE 29 MMOL/L (21-32); CHLORIDE 97 MMOL/L (98-107); CREATININE SERUM 0.91 MG/DL (0.60-1.30); GFR ESTIMATED > 60; GLUCOSE 196 MG/DL (70-105); POTASSIUM 3.1 MMOL/L (3.6-5.0); SODIUM 141 MMOL/L (135-145); TOTAL PROTEIN 6.9 GM/DL (6.4-8.2); URIC ACID 6.8 MG/DL (2.6-7.2)
[2019-05-01 14:30] LABS: BASOPHILS % (AUTO) 0 % (0-10); EOSINOPHILS # (AUTO) 0.4 10^3/uL (0.0-0.3); EOSINOPHILS % (AUTO) 5 % (0-10); HEMATOCRIT 39 % (40-54); HEMOGLOBIN 12.7 G/DL (13.3-17.7); LYMPHOCYTES # (AUTO) 1.8 X 10^3 (1.0-4.0); LYMPHOCYTES % (AUTO) 20 % (12-44); MEAN CORPUSCULAR HEMOGLOBIN 30 PG (25-34); MEAN CORPUSCULAR HGB CONC 33 G/DL (32-36); MEAN CORPUSCULAR VOLUME 91 FL (80-99); MEAN PLATELET VOLUME 10.8 FL (7.4-10.4); MONOCYTES # (AUTO) 0.9 X 10^3 (0.0-1.0); MONOCYTES % (AUTO) 10 % (0-12); NEUTROPHILS # (AUTO) 6.1 X 10^3 (1.8-7.8); NEUTROPHILS % (AUTO) 66 % (42-75); PLATELET COUNT 295 10^3/uL (130-400); RED CELL DISTRIBUTION WIDTH 14.6 % (10.0-14.5); WHITE BLOOD COUNT 9.2 10^3/uL (4.3-11.0)
[2019-05-01 14:53] LABS: ALANINE AMINOTRANSFERASE 16 U/L (0-55); ALBUMIN 3.9 GM/DL (3.2-4.5); ALKALINE PHOSPHATASE 78 U/L (40-136); BILIRUBIN,TOTAL 0.3 MG/DL (0.1-1.0); BUN/CREATININE RATIO 14; CARBON DIOXIDE 27 MMOL/L (21-32); CHLORIDE 104 MMOL/L (98-107); GFR ESTIMATED > 60; GLUCOSE 164 MG/DL (70-105); POTASSIUM 3.5 MMOL/L (3.6-5.0); SODIUM 141 MMOL/L (135-145); TOTAL PROTEIN 6.6 GM/DL (6.4-8.2); URIC ACID 4.8 MG/DL (2.6-7.2)
== END 2019-05-15 | disposition home or self-care (01) ==
LOC: ONC 14:02
PROVIDERS: ATTEND Internal Medicine Hematology & Oncology
DX: C91.10 Chronic lymphocytic leukemia of B-cell type not having achieved remission (principal); I25.10 Atherosclerotic heart disease of native coronary artery without angina pectoris; E87.6 Hypokalemia; I10 Essential (primary) hypertension; E78.5 Hyperlipidemia, unspecified; E11.9 Type 2 diabetes mellitus without complications; J44.9 Chronic obstructive pulmonary disease, unspecified; G47.30 Sleep apnea, unspecified; Z79.899 Other long term (current) drug therapy; E66.01 Morbid (severe) obesity due to excess calories; Z68.43 Body mass index [BMI] 50.0-59.9, adult; Z95.5 Presence of coronary angioplasty implant and graft; Z45.2 Encounter for adjustment and management of vascular access device
CPT/HCPCS: 36415; 36591; 80053; 83615; 84550; 85025; 96523

== ENCOUNTER → 2019-07-02 | Outpatient (CLI) | payer MEDICARE ==
[~2019-07-02] MED LIST changes: +HOLD METFORMIN - RECEIVED CONTRAST 20 ML VIAL IV SCH
[2019-07-02] MEDS: IOHEXOL 350 MG/ML 100 ML (OMNIPAQUE 350) VIAL IV ONE (14:20)
[2019-07-02] MEDS: BARIUM SUSPENSION 2.1% (VANILLA SILQ) 450 ML PO ONE (14:20)
[2019-07-02] MEDS: CATHETER FLUSH 10 ML SYR IV PRN (14:20)
[2019-07-02] MEDS: NS 100 ML (IVPB) BAG IV ONE (14:20)
--- NOTE | 2019-07-02 14:57 | Diagnostic Imaging Report ---
PROCEDURE: CT chest with contrast, CT abdomen and pelvis with and without contrast. TECHNIQUE: Pre and post intravenous contrast axial imaging of the abdomen and pelvis and post contrast axial imaging of the chest were performed. Auto Exposure Controls were utilized during the CT exam to meet ALARA standards for radiation dose reduction. INDICATION: Chronic lymphocytic leukemia. COMPARISON: Correlation is made with prior CT from 08/04/2016. FINDINGS: CT chest: Right chest wall port has the tip within the SVC. No axillary lymphadenopathy is detected. Fatty right paratracheal lymph node previously described appears smaller measuring 1.3 cm compared with 1.7 cm. Subcarinal node previously described is approximately 8 mm compared with 10 mm. No hilar lymphadenopathy is seen. Heart remains enlarged. There is no pericardial or pleural fluid detected. No pulmonary mass, nodule or infiltrate is detected. IMPRESSION: Decrease in size of slightly prominent mediastinal lymph nodes since prior CT from 08/04/2016. No new abnormality is identified. No acute features are seen. CT abdomen and pelvis: Generalized low-density throughout the liver is again noted consistent with hepatic steatosis. No discrete mass is identified. The gallbladder is unremarkable. No biliary ductal dilatation is seen. The pancreas is unremarkable. The spleen is normal in size. No adrenal mass is detected. The kidneys are unremarkable. There is no hydronephrosis. The aorta is non-aneurysmal. No central retroperitoneal or mesenteric lymphadenopathy is detected. The small and large bowel loops are normal caliber. There is no obstruction. No free fluid or loculated fluid collection is identified. No inguinal or iliac lymphadenopathy is detected. The bladder and prostate are unremarkable. IMPRESSION: 1. Hepatic steatosis. 2. No evidence of abdominal or pelvic lymphadenopathy. No acute features seen. Dictated by: Dictated on workstation # [id number]
== END ==
LOC: RAD 13:49
PROVIDERS: ATTEND Internal Medicine Hematology & Oncology
DX: C91.10 Chronic lymphocytic leukemia of B-cell type not having achieved remission (principal); K76.0 Fatty (change of) liver, not elsewhere classified; Z95.828 Presence of other vascular implants and grafts
CPT/HCPCS: 71260; 74178

== ENCOUNTER 2019-08-29 13:24 | Outpatient (RCR) | payer MEDICARE, OTHER ==
[2019-06-27 13:45] LABS: BASOPHILS % (AUTO) 0 % (0-10); EOSINOPHILS # (AUTO) 0.3 10^3/uL (0.0-0.3); EOSINOPHILS % (AUTO) 4 % (0-10); HEMATOCRIT 41 % (40-54); HEMOGLOBIN 13.7 G/DL (13.3-17.7); LYMPHOCYTES # (AUTO) 1.6 X 10^3 (1.0-4.0); LYMPHOCYTES % (AUTO) 20 % (12-44); MEAN CORPUSCULAR HEMOGLOBIN 30 PG (25-34); MEAN CORPUSCULAR HGB CONC 34 G/DL (32-36); MEAN CORPUSCULAR VOLUME 89 FL (80-99); MONOCYTES # (AUTO) 0.6 X 10^3 (0.0-1.0); MONOCYTES % (AUTO) 7 % (0-12); NEUTROPHILS # (AUTO) 5.5 X 10^3 (1.8-7.8); NEUTROPHILS % (AUTO) 68 % (42-75); PLATELET COUNT 267 10^3/uL (130-400); RED CELL DISTRIBUTION WIDTH 12.7 % (10.0-14.5)
[2019-06-27 14:03] LABS: ALANINE AMINOTRANSFERASE 15 U/L (0-55); ALBUMIN 3.8 GM/DL (3.2-4.5); ALKALINE PHOSPHATASE 112 U/L (40-136); BILIRUBIN,TOTAL 0.2 MG/DL (0.1-1.0); BUN/CREATININE RATIO 10; CALCIUM 8.9 MG/DL (8.5-10.1); CARBON DIOXIDE 27 MMOL/L (21-32); CHLORIDE 100 MMOL/L (98-107); CREATININE SERUM 1.08 MG/DL (0.60-1.30); GFR ESTIMATED > 60; GLUCOSE 353 MG/DL (70-105); POTASSIUM 3.8 MMOL/L (3.6-5.0); SODIUM 137 MMOL/L (135-145); TOTAL PROTEIN 6.7 GM/DL (6.4-8.2); URIC ACID 3.9 MG/DL (2.6-7.2)
[~2019-08-29 13:24] MED LIST changes: -HOLD METFORMIN - RECEIVED CONTRAST 20 ML VIAL IV SCH
[2019-08-29 13:42] LABS: BASOPHILS # (AUTO) 0.1 10^3/uL (0.0-0.1); BASOPHILS % (AUTO) 1 % (0-10); EOSINOPHILS # (AUTO) 0.5 10^3/uL (0.0-0.3); EOSINOPHILS % (AUTO) 6 % (0-10); HEMATOCRIT 44 % (40-54); HEMOGLOBIN 14.6 G/DL (13.3-17.7); LYMPHOCYTES # (AUTO) 1.8 X 10^3 (1.0-4.0); LYMPHOCYTES % (AUTO) 20 % (12-44); MEAN CORPUSCULAR HEMOGLOBIN 29 PG (25-34); MEAN CORPUSCULAR HGB CONC 33 G/DL (32-36); MEAN CORPUSCULAR VOLUME 88 FL (80-99); MEAN PLATELET VOLUME 10.7 FL (7.4-10.4); MONOCYTES # (AUTO) 0.8 X 10^3 (0.0-1.0); MONOCYTES % (AUTO) 9 % (0-12); NEUTROPHILS # (AUTO) 5.7 X 10^3 (1.8-7.8); NEUTROPHILS % (AUTO) 64 % (42-75); PLATELET COUNT 325 10^3/uL (130-400); RED CELL DISTRIBUTION WIDTH 13.7 % (10.0-14.5); WHITE BLOOD COUNT 8.9 10^3/uL (4.3-11.0)
[2019-08-29 13:59] LABS: ALANINE AMINOTRANSFERASE 18 U/L (0-55); ALBUMIN 4.2 GM/DL (3.2-4.5); ALKALINE PHOSPHATASE 100 U/L (40-136); BILIRUBIN,TOTAL 0.4 MG/DL (0.1-1.0); BUN/CREATININE RATIO 13; CALCIUM 9.5 MG/DL (8.5-10.1); CARBON DIOXIDE 26 MMOL/L (21-32); CHLORIDE 101 MMOL/L (98-107); CREATININE SERUM 1.03 MG/DL (0.60-1.30); GFR ESTIMATED > 60; GLUCOSE 261 MG/DL (70-105); POTASSIUM 3.9 MMOL/L (3.6-5.0); SODIUM 140 MMOL/L (135-145); TOTAL PROTEIN 7.1 GM/DL (6.4-8.2); URIC ACID 3.3 MG/DL (2.6-7.2)
== END 2019-09-05 | disposition home or self-care (01) ==
LOC: ONC 13:24
PROVIDERS: ATTEND Internal Medicine Hematology & Oncology
DX: C91.10 Chronic lymphocytic leukemia of B-cell type not having achieved remission (principal); I25.10 Atherosclerotic heart disease of native coronary artery without angina pectoris; E87.6 Hypokalemia; I10 Essential (primary) hypertension; E78.5 Hyperlipidemia, unspecified; E11.9 Type 2 diabetes mellitus without complications; J44.9 Chronic obstructive pulmonary disease, unspecified; G47.30 Sleep apnea, unspecified; Z79.899 Other long term (current) drug therapy; E66.01 Morbid (severe) obesity due to excess calories; Z68.43 Body mass index [BMI] 50.0-59.9, adult; Z95.5 Presence of coronary angioplasty implant and graft; Z45.2 Encounter for adjustment and management of vascular access device
CPT/HCPCS: 36591; 80053; 83615; 84153; 84270; 84402; 84403; 84443; 84550; 85025; 96523

== ENCOUNTER → 2019-09-05 | Outpatient (CLI) | payer MEDICARE | LOC: WOUNDCARE 08:08 | PROVIDERS: ATTEND Nurse Practitioner | DX: I87.323 Chronic venous hypertension (idiopathic) with inflammation of bilateral lower extremity (principal); I10 Essential (primary) hypertension | CPT/HCPCS: 99213 ==

== ENCOUNTER 2019-12-17 12:10 | Outpatient (RCR) | payer MEDICARE, OTHER ==
[2019-10-24 13:47] LABS: BASOPHILS % (AUTO) 1 % (0-10); EOSINOPHILS # (AUTO) 0.2 10^3/uL (0.0-0.3); EOSINOPHILS % (AUTO) 4 % (0-10); HEMATOCRIT 42 % (40-54); HEMOGLOBIN 13.8 G/DL (13.3-17.7); LYMPHOCYTES # (AUTO) 1.4 X 10^3 (1.0-4.0); LYMPHOCYTES % (AUTO) 22 % (12-44); MEAN CORPUSCULAR HEMOGLOBIN 29 PG (25-34); MEAN CORPUSCULAR HGB CONC 33 G/DL (32-36); MEAN CORPUSCULAR VOLUME 87 FL (80-99); MEAN PLATELET VOLUME 10.9 FL (7.4-10.4); MONOCYTES # (AUTO) 0.5 X 10^3 (0.0-1.0); MONOCYTES % (AUTO) 8 % (0-12); NEUTROPHILS # (AUTO) 4.2 X 10^3 (1.8-7.8); NEUTROPHILS % (AUTO) 66 % (42-75); PLATELET COUNT 254 10^3/uL (130-400); RED CELL DISTRIBUTION WIDTH 13.2 % (10.0-14.5); WHITE BLOOD COUNT 6.4 10^3/uL (4.3-11.0)
[2019-10-24 14:09] LABS: ALANINE AMINOTRANSFERASE 19 U/L (0-55); ALBUMIN 3.9 GM/DL (3.2-4.5); ALKALINE PHOSPHATASE 89 U/L (40-136); BILIRUBIN,TOTAL 0.3 MG/DL (0.1-1.0); BUN/CREATININE RATIO 11; CALCIUM 8.9 MG/DL (8.5-10.1); CARBON DIOXIDE 23 MMOL/L (21-32); CHLORIDE 102 MMOL/L (98-107); CREATININE SERUM 0.96 MG/DL (0.60-1.30); GFR ESTIMATED > 60; GLUCOSE 284 MG/DL (70-105); POTASSIUM 3.7 MMOL/L (3.6-5.0); SODIUM 138 MMOL/L (135-145); TOTAL PROTEIN 6.9 GM/DL (6.4-8.2); URIC ACID 3.3 MG/DL (2.6-7.2)
[~2019-12-17 12:10] MED LIST changes: -ARIP30TA10 PO; +ARIP30TA21 PO; -DIAZ5TAB3 PO; +DIAZ5TAB49 PO; +EZET10TA17 PO; -METO-370 PO; +METO50TA7 PO; +MONT10TA26 PO; -MORP-33 PO; +MORP-68 PO; -TAMS0.4C98 PO; +TMSL.4C PO
== END 2019-12-29 | disposition home or self-care (01) ==
LOC: ONC 12:10
PROVIDERS: ATTEND Internal Medicine Hematology & Oncology
DX: C91.10 Chronic lymphocytic leukemia of B-cell type not having achieved remission (principal); I25.10 Atherosclerotic heart disease of native coronary artery without angina pectoris; E87.6 Hypokalemia; I10 Essential (primary) hypertension; E78.5 Hyperlipidemia, unspecified; E11.9 Type 2 diabetes mellitus without complications; J44.9 Chronic obstructive pulmonary disease, unspecified; Z79.899 Other long term (current) drug therapy; E66.01 Morbid (severe) obesity due to excess calories; G47.33 Obstructive sleep apnea (adult) (pediatric); I65.23 Occlusion and stenosis of bilateral carotid arteries; L97.909 Non-pressure chronic ulcer of unspecified part of unspecified lower leg with unspecified severity; Z68.43 Body mass index [BMI] 50.0-59.9, adult; Z95.5 Presence of coronary angioplasty implant and graft; Z98.890 Other specified postprocedural states; Z45.2 Encounter for adjustment and management of vascular access device
CPT/HCPCS: 36591; 80053; 83615; 84550; 85025; 96523

== ENCOUNTER 2020-02-21 09:46 | Outpatient (RCR) | payer MEDICARE, OTHER ==
[2020-01-16 13:36] LABS: BASOPHILS # (AUTO) 0.1 10^3/uL (0.0-0.1); BASOPHILS % (AUTO) 1 % (0-10); EOSINOPHILS # (AUTO) 0.2 10^3/uL (0.0-0.3); EOSINOPHILS % (AUTO) 2 % (0-10); HEMATOCRIT 42 % (40-54); HEMOGLOBIN 14.3 G/DL (13.3-17.7); LYMPHOCYTES # (AUTO) 2.4 X 10^3 (1.0-4.0); LYMPHOCYTES % (AUTO) 23 % (12-44); MEAN CORPUSCULAR HEMOGLOBIN 29 PG (25-34); MEAN CORPUSCULAR HGB CONC 34 G/DL (32-36); MEAN CORPUSCULAR VOLUME 86 FL (80-99); MEAN PLATELET VOLUME 12.4 FL (7.4-10.4); MONOCYTES # (AUTO) 0.9 X 10^3 (0.0-1.0); MONOCYTES % (AUTO) 9 % (0-12); NEUTROPHILS # (AUTO) 7.1 X 10^3 (1.8-7.8); NEUTROPHILS % (AUTO) 66 % (42-75); PLATELET COUNT 222 10^3/uL (130-400); RED CELL DISTRIBUTION WIDTH 14.1 % (10.0-14.5); WHITE BLOOD COUNT 10.6 10^3/uL (4.3-11.0)
[2020-01-16 13:59] LABS: ALANINE AMINOTRANSFERASE 16 U/L (0-55); ALBUMIN 3.6 GM/DL (3.2-4.5); ALKALINE PHOSPHATASE 86 U/L (40-136); BILIRUBIN,TOTAL 0.3 MG/DL (0.1-1.0); BUN/CREATININE RATIO 14; CALCIUM 8.6 MG/DL (8.5-10.1); CARBON DIOXIDE 26 MMOL/L (21-32); CHLORIDE 98 MMOL/L (98-107); CREATININE SERUM 1.03 MG/DL (0.60-1.30); GFR ESTIMATED > 60; GLUCOSE 370 MG/DL (70-105); POTASSIUM 3.9 MMOL/L (3.6-5.0); SODIUM 135 MMOL/L (135-145); TOTAL PROTEIN 6.3 GM/DL (6.4-8.2); URIC ACID 3.5 MG/DL (2.6-7.2)
[2020-03-02] MEDS ORDERED: IBRU420T PO (12:27)
[2020-03-02] MEDS ORDERED: GABA300C PO (12:27)
[2020-03-02] MEDS ORDERED: DICL100G31 TOP (12:27)
[2020-03-02] MEDS ORDERED: ATOR40TA70 PO (12:27)
[2020-03-02] MEDS ORDERED: OXYC-465 PO (12:27)
[2020-03-02] MEDS ORDERED: MIRT15TA6 PO (12:27)
[2020-03-02] MEDS ORDERED: METO10TA7 PO (12:27)
[2020-03-02] MEDS ORDERED: NORT25CA PO (12:27)
[2020-03-02] MEDS ORDERED: ONDA8TAB13 PO (12:27)
[2020-03-02] MEDS ORDERED: FLUO20CA46 PO (12:27)
[2020-03-02] MEDS ORDERED: TRAZ-227 PO (12:27)
[2020-03-02] MEDS ORDERED: TMSL.4C PO (12:30)
[2020-03-02] MEDS ORDERED: LOPE-175 PO (12:37)
[2020-03-02] MEDS ORDERED: MTP100TCR PO (12:37)
[2020-04-11] MEDS ORDERED: CLON0.2T PO (14:00)
== END 2020-04-15 | disposition home or self-care (01) ==
LOC: ONC 09:46
PROVIDERS: ATTEND Internal Medicine Hematology & Oncology
DX: C91.10 Chronic lymphocytic leukemia of B-cell type not having achieved remission (principal); I25.10 Atherosclerotic heart disease of native coronary artery without angina pectoris; E87.6 Hypokalemia; I10 Essential (primary) hypertension; E78.5 Hyperlipidemia, unspecified; E11.9 Type 2 diabetes mellitus without complications; J44.9 Chronic obstructive pulmonary disease, unspecified; E66.01 Morbid (severe) obesity due to excess calories; G47.33 Obstructive sleep apnea (adult) (pediatric); I65.23 Occlusion and stenosis of bilateral carotid arteries; L97.909 Non-pressure chronic ulcer of unspecified part of unspecified lower leg with unspecified severity; R59.0 Localized enlarged lymph nodes; E61.1 Iron deficiency; E79.0 Hyperuricemia without signs of inflammatory arthritis and tophaceous disease; F03.90 Unspecified dementia, unspecified severity, without behavioral disturbance, psychotic disturbance, mood disturbance, and anxiety; R61 Generalized hyperhidrosis; Z98.890 Other specified postprocedural states; Z79.899 Other long term (current) drug therapy; Z68.43 Body mass index [BMI] 50.0-59.9, adult; Z95.5 Presence of coronary angioplasty implant and graft
CPT/HCPCS: 80053; 83615; 84550; 85025; G0463; 36591; 96523

== ENCOUNTER 2020-03-01 16:25 | Inpatient (IN) | payer MEDICARE ==
[~2020-03-01] VITALS: Ht 170.2 cm; Wt 150.1 kg
--- OUTSIDE RECORDS SUMMARY | 2020-03-01 16:33 | XMS REPORT ---
Author Author Michele WASHBURN Organization [facility] Address [address] [place] [address] Care Team Providers Care Director Of Sales Support Name Role Phone NOEMI WASHBURN Unavailable PROBLEMS Type Condition ICD9-CM Code OMY50-II Code Onset Dates Condition S tatus SNOMED Code Problem Leukocytosis D72.829 Active 4296941 06 Problem Bipolar I disorder, most recent episode (or curr ent) mixed, moderate F31.62 Active 43741852 Problem Reactive airway disease J45.909 Active 776372657885 Problem Anxiety F41.9 Active 19770689 Problem Insomnia, unspecified type G47.00 Act sharon 421649762 Problem Essential hypertension I10 Active 64281866 Problem Morbid obesity E66.01 Active 47032 6002 Problem Skin cancer C44.90 Active 82539620 7 Problem DM neuro manif type II E11.49 Active 79914184 Problem Mild cognitive impairment G31.84 Acti ve 055851413 Problem Benign prostatic hyperplasia with lower urinary tract symptoms, unspecified morphology N40.1 Active 86002 6007 Problem Chronic pain G89.29 Active 8162468 1 Problem Diabetes E11.9 Active 79267351 Problem Retinal edema H35.81 Active 174531 6 Problem Anemia of chronic illness D63.8 Acti ve 071471500 Problem Falling R29.6 Active 162728088 Problem Pressure ulcer of other site, stage 3 L89.893 Active 791092764 Problem 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 Active 394469695 Problem Eye exam abnormal R93.8 Active 16 9710196 Problem Pure hypercholesterolemia E78.00 Acti ve 229680561 Problem Dysuria R30.0 Active 20748671 Problem Bipolar disorder, in partial remission, most rec ent episode depressed F31.75 Active 83775657 Problem Hypokalemia E87.6 Active 44885655 Problem Other iron deficiency anemia D50.8 A ctive 36737491 Problem Eustachian tube dysfunction, unspecified laterality H69.80 Active 40820910 Problem Primary osteoarthritis of right knee M17.11 Active 664875560511957 Problem Cough R05 Active 55414544 Problem Bipolar disorder F31.9 Active 137 85685 Problem Chronic diastolic (congestive) heart failure I50.3 2 Active 184263046 Problem Psychophysiological insomnia F51.04 A ctive 404271285 Problem Gastroesophageal reflux disease without esophagitis K21.9 Active 196704446 Problem Polyneuropathy associated with underlying disease G63 Active 553431834 Problem Other secondary acute gout, 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 0 Active 147025542 Problem Diabetic polyneuropathy associated with type 2 d iabetes mellitus E11.42 Active 31121834 Problem Chronic lymphocytic leukemia C91.10 A ctive 87096765 Problem Bilateral primary osteoarthritis of knee M17.0 Active 452063035 Problem Type 2 diabetes mellitus with diabetic neuropathy, uns pecified E11.40 Active 65552753 Problem penitentiary (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 Z79.4 Active 625255827 Problem Lymphocytosis D72.820 Active 117665 09 Problem Mood disorder F39 Active 807607 05 Problem Bipolar I disorder, most recent episode depressed, moderat e F31.32 Active 609794271 ALLERGIES No Information ENCOUNTERS Encounter Location Date Diagnosis [facility] [place] [address] [facility] [id number] [address] [place] [phone] Dec, [facility] [address] [facility] [id number] [address] [place] [id number] Dec, [facility] [place] [address] [facility] [id number] [address] [place] [id number] Dec, [facility] [place] [address] [facility] [id number] [address] [place] [id number] Dec, Mood disorder F39 [facility] [place] [address] [facility] [id number] [address] [place] [id number] Nov, Other secondary acute gout, 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 [facility] [place] [address] [facility] [id number] [address] [place] [id number] 25 Nov, 2019 Gastroesophageal reflux dise ase without esophagitis K21.9 [facility] [place] [address] [id number] [address] [place] [phone] Nov, Chronic pain G89.29 [facility] [place] [address] [id number] [address] [place] [id number] Nov, Bipolar I disorder, most rec ent episode depressed, moderate F31.32 ; Anxiety F41.9 and Mild cognitive impairment G31.84 [facility] [place] [address] [facility] [id number] [address] [place] [id number] Nov, [facility] [place] [address] [id number] [address] [place] [id number] Nov, Syncope, unspecified syncope type R55 [facility] [place] [address] [id number] [address] [place] [id number] Nov, Mood disorder F39 [facility] [place] [address] [facility] [id number] [address] [place] [id number] Oct, Chronic pain G89.29 [facility] [address] [id number] [address] [place] [id number] Oct, [facility] [place] [address] [id number] [address] [place] [id number] Oct, Mood disorder F39 [facility] [place] [address] [facility] [id number] [address] [place] [id number] Oct, [facility] [address] [facility] [id number] [address] [place] [id number] Oct, Bipolar disorder, in partial remission, most recent episode depressed F31.75 and Mild cognitive impairment G31.84 [facility] [place] [address] [id number] [address] [place] [id number] Oct, Mood disorder F39 [facility] [place] [address] [facility] [id number] [address] [place] [id number] Sep, [facility] [place] [address] [facility] [id number] [address] [place] [id number] Sep, Mood disorder F39 [facility] [place] [address] [id number] [address] [place] [id number] 13 Sep, 2019 Bipolar disorder, in partial remission, most recent episode depressed F31.75 and Mild cognitive impairment G31.84 [facility] [place] [address] [id number] [address] [place] [id number] 06 Sep, 2019 Mood disorder F39 [facility] [place] [address] [id number] [address] [place] [id number] Sep, [facility] [address] [id number] [address] [place] [phone] Sep, Mood disorder F39 [facility] [place] [address] [id number] [address] [place] [id number] Sep, [facility] [place] [address] [id number] [address] [place] [phone] Aug, Mood disorder F39 [facility] [place] [address] [id number] [address] [place] [id number] Aug, [facility] [place] [address] [id number] [address] [place] [phone] Aug, [facility] [address] [id number] [address] [place] [id number] Aug, [facility] [address] [id number] [address] [place] [id number] Aug, [facility] [place] [address] [id number] [address] [place] [id number] Aug, [facility] [place] [address] [id number] [address] [place] [id number] Aug, [facility] [place] [address] [id number] [address] [place] [id number] Aug, [facility] [place] [address] [id number] [address] [place] [phone] Aug, Essential hypertension I10 [facility] [place] [address] [id number] [address] [place] [id number] Aug, Bipolar disorder, in partial remission, most recent episode depressed F31.75 and Mild cognitive impairment G31.84 [facility] [place] [address] [id number] [address] [place] [id number] Aug, Mood disorder F39 [facility] [place] [address] [id number] [address] [place] [phone] Aug, [facility] [place] [address] [id number] [address] [place] [id number] Aug, Bipolar disorder, in partial remission, most recent episode depressed F31.75 and Mild cognitive impairment G31.84 [facility] [place] [address] [id number] [address] [place] [id number] Jul, Bipolar disorder, in partial remission, most recent episode depressed F31.75 and Mild cognitive impairment G31.84 [facility] [place] [address] [id number] [address] [place] [id number] Jul, Psychophysiological insomnia F51.04 [facility] [place] [address] [id number] [address] [place] [id number] Jul, [facility] [place] [address] [id number] [address] [place] [id number] Jul, [facility] [address] [id number] [address] [place] [id number] Jul, [facility] [address] [id number] [address] [place] [id number] Jul, [facility] [address] [id number] [address] [place] [id number] Jul, [facility] [address] [id number] [address] [place] [id number] Jul, [facility] [address] [id number] [address] [place] [id number] Jul, Bipolar disorder, in partial remission, most recent episode depressed F31.75 and Mild cognitive impairment G31.84 [place] [address] [facility] [id number] [address] [place] [id number] Jul, Chronic pain G89.29 ; Diabet es E11.9 ; Essential hypertension I10 ; Ill feeling R68.89 ; Local infection of the skin and subcutaneous tissue, unspecified L08.9 and Other injury of unspecified body region, initial encounter T14.8XXA [place] [address] [facility] [id number] [address] [place] [id number] Jun, Bipolar disorder, in partial remission, most recent episode depressed F31.75 and Mild cognitive impairment G31.84 [place] [address] [facility] [id number] [address] [place] [id number] Jun, [place] [address] [facility] [id number] [address] [place] [phone] Jun, Bipolar disorder, in partial remission, most recent episode depressed F31.75 and Mild cognitive impairment G31.84 [place] [address] [facility] [id number] [address] [place] [id number] Jun, Psychophysiological insomnia F51.04 [place] [address] [facility] [id number] [address] [place] [id number] Jun, Psychophysiological insomnia F51.04 ; Chronic pain G89.29 ; Bipolar I disorder, most recent episode (or current) mixed, moderate F31.62 ; 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 ; Polyneuropathy associated with underlying disease G63 ; Type 2 diabetes mellitus with diabetic neuropathy, unspecified E11.40 ; penitentiary (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 Z79.4 and Hyperglycemia R73.9 [place] [address] [facility] [id number] [address] [place] [phone] Jun, Bipolar disorder, in partial remission, most recent episode depressed F31.75 and Mild cognitive impairment G31.84 [place] [address] [facility] [id number] [address] [place] [phone] Jun, [place] [address] [id number] [address] [place] [id number] Jun, Bipolar disorder F31.9 [facility] [place] [address] [facility] [id number] [address] [place] [id number] May, Bipolar disorder, in partial remission, most recent episode depressed F31.75 and Mild cognitive impairment G31.84 [facility] [place] [address] [id number] [address] [place] [id number] May, [facility] [place] [address] [facility] [id number] [address] [place] [id number] Apr, Chronic pain G89.29 and Bipo lar disorder F31.9 [facility] [address] [facility] [id number] [address] [place] [id number] Mar, Bipolar disorder F31.9 and C hronic pain G89.29 [facility] [place] [address] [facility] [id number] [address] [place] [id number] Feb, Bipolar disorder F31.9 [facility] [place] [address] [id number] [address] [place] [id number] Feb, Cellulitis of right upper ex tremity L03.113 and Skin abrasion T14.8XXA [facility] [place] [address] [id number] [address] [place] [phone] Feb, Bipolar disorder, in partial remission, most recent episode depressed F31.75 and Mild cognitive impairment G31.84 [facility] [place] [address] [facility] [id number] [address] [place] [id number] Feb, Chronic pain G89.29 [facility] [place] [address] [id number] [address] [place] [id number] Feb, Bipolar disorder, in partial remission, most recent episode depressed F31.75 and Mild cognitive impairment G31.84 [facility] [place] [address] [facility] [id number] [address] [place] [phone] January, Bipolar disorder, in partial remission, most recent episode depressed F31.75 and Mild cognitive impairment G31.84 [facility] [place] [address] [id number] [address] [place] [id number] 16 Jan, 2019 Chronic pain G89.29 and Bipo lar disorder F31.9 [facility] [place] [address] [id number] [address] [place] [phone] January, Bipolar disorder, in partial remission, most recent episode depressed F31.75 and Mild cognitive impairment G31.84 [facility] [place] [address] [id number] [address] [place] [id number] Dec, [facility] [place] [address] [id number] [address] [place] [id number] Dec, Chronic pain G89.29 and Bipo lar disorder F31.9 [facility] [place] [address] [id number] [address] [place] [phone] Dec, Edema of both lower extremit ies R60.0 [facility] [place] [address] [id number] [address] [place] [id number] Dec, Bipolar disorder F31.9 [facility] [place] [address] [id number] [address] [place] [id number] Dec, Bipolar disorder, in partial remission, most recent episode depressed F31.75 and Mild cognitive impairment G31.84 [facility] [place] [address] [id number] [address] [place] [phone] Nov, [facility] [place] [address] [id number] [address] [place] [phone] Nov, Chronic pain G89.29 [facility] [place] [address] [id number] [address] [place] [id number] Nov, Bipolar disorder, in partial remission, most recent episode depressed F31.75 and Mild cognitive impairment G31.84 [facility] [place] [address] [id number] [address] [place] [id number] Nov, Bipolar disorder F31.9 [facility] [place] [address] [id number] [address] [place] [id number] 04 Nov, 2018 Encounter for Medicare annua l wellness exam Z00.00 ; Polyneuropathy associated with underlying disease G63 ; Diabetic polyneuropathy associated with type 2 diabetes mellitus E11.42 ; Chronic lymphocytic leukemia C91.10 ; Morbid obesity E66.01 ; Encounter for immunization Z23 ; Hypokalemia E87.6 ; DM neuro manif type II E11.49 ; Reactive airway disease J45.909 ; 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 ; Skin cancer C44.90 ; Benign prostatic hyperplasia with lower urinary tract symptoms, unspecified morphology N40.1 and Essential hypertension I10 [address] [id number] 21 Oct, 2018 Chronic pain G89.[address] [id number] 18 Oct, 2018 Diabetes E11.9 [place] [id number] [address] [place] [id number] Oct, Bipolar I disorder, most rec ent episode (or current) mixed, moderate F31.62 and Mild cognitive impairment G31.84 [place] [id number] [address] [place] [id number] 06 Oct, 2018 Bipolar I disorder, most rec ent episode (or current) mixed, moderate F31.62 and Mild cognitive impairment G31.84 [place] [id number] [address] [place] [id number] Sep, Bipolar I disorder, most rec ent episode (or current) mixed, moderate F31.62 and Mild cognitive impairment G31.84 [place] [id number] [address] [place] [id number] Sep, [address] [id number] Sep, Diabetes E11.9 ; Hypoxia R09 .02 ; Hyperglycemia R73.9 ; Therapeutic drug monitoring Z51.81 ; BMI 50.0-59.9, adult Z68.43 and Skin cancer C44.90 [facility] [place] [address] [id number] [address] [place] [id number] Sep, Chronic pain G89.29 [facility] [place] [address] [id number] [address] [place] [phone] Sep, Bipolar I disorder, most rec ent episode (or current) mixed, moderate F31.62 [facility] [place] [address] [id number] [address] [place] [id number] Sep, [facility] [place] [address] [id number] [address] [place] [id number] Sep, [facility] [place] [address] [id number] [address] [place] [id number] Aug, Chronic pain G89.29 [facility] [place] [address] [id number] [address] [place] [id number] Aug, Bipolar I disorder, most rec ent episode (or current) mixed, moderate F31.62 [facility] [place] [address] [id number] [address] [place] [id number] Aug, Bipolar I disorder, most rec ent episode (or current) mixed, moderate F31.62 and Mild cognitive impairment G31.84 [facility] [place] [address] [id number] [address] [place] [id number] Jul, [facility] [address] [id number] [address] [place] [id number] Jul, Chronic pain G89.29 [facility] [place] [address] [id number] [address] [place] [id number] Jul, Bipolar I disorder, most rec ent episode (or current) mixed, moderate F31.62 and Mild cognitive impairment G31.84 [facility] [place] [address] [id number] [address] [place] [id number] Jul, Bipolar I disorder, most rec ent episode (or current) mixed, moderate F31.62 and MCI (mild cognitive impairment) G31.84 [facility] [place] [address] [id number] [address] [place] [id number] Jul, [facility] [place] [address] [id number] [address] [place] [id number] Jul, [facility] [place] [address] [id number] [address] [place] [id number] Jul, Bipolar I disorder, most rec ent episode (or current) mixed, moderate F31.62 [facility] [place] [address] [id number] [address] [place] [id number] Jul, Chronic pain G89.29 [facility] [place] [address] [id number] [address] [place] [id number] Jun, Bipolar I disorder, most rec ent episode (or current) mixed, moderate F31.62 [facility] [place] [address] [facility] [id number] [address] [place] [id number] Jun, Pre-procedure lab exam Z01.8 12 [facility] [place] [address] [id number] [address] [place] [id number] Jun, [facility] [address] [id number] [place] [id number] Jun, [facility] [place] [address] [facility] [id number] [address] [place] [id number] Jun, [facility] [place] [address] [facility] [id number] [address] [place] [id number] Jun, Forgetfulness R68.89 ; Pre-s yncope R55 ; Localized edema R60.0 ; Other iron deficiency anemia D50.8 and BMI 50.0-59.9, adult Z68.43 [facility] [place] [address] [id number] [address] [place] [phone] Jun, Chronic pain G89.29 [facility] [place] [address] [facility] [id number] [address] [place] [id number] Jun, Chronic pain G89.29 [facility] [address] [place] [id number] [address] [place] [address] Jun, Bipolar I disorder, most rec ent episode (or current) mixed, moderate F31.62 [place] [address] [phone] 07 May, 2018 Chronic pain G89.29 [place] [address] [address] Apr, [place] [address] [address] Apr, Chronic pain G89.29 [place] [address] [address] Apr, Primary osteoarthritis of ri ght knee M17.11 [place] [address] [address] Mar, [place] [address] [address] Mar, BMI 50.0-59.9, adult Z68.43 and Bipolar disorder, in partial remission, most recent episode depressed F31.75 [place] [address] [address] Mar, Diabetes E11.9 ; Pure hyperc holesterolemia E78.00 ; Essential hypertension I10 ; Nausea with vomiting, unspecified R11.2 and Headache, unspecified headache type R51 [place] [address] [address] Mar, Bipolar I disorder, most rec ent episode (or current) mixed, moderate F31.62 [place] [address] [address] Mar, Bipolar I disorder, most rec ent episode (or current) mixed, moderate F31.62 [place] [address] [address] Mar, Chronic pain G89.29 [facility] [place] [address] [id number] [address] [place] [id number] Mar, Bipolar I disorder, most rec ent episode (or current) mixed, moderate F31.62 [facility] [place] [address] [id number] [address] [place] [id number] Feb, Bipolar I disorder, most rec ent episode (or current) mixed, moderate F31.62 [facility] [place] [address] [facility] [id number] [address] [place] [phone] Feb, Chronic pain G89.29 [facility] [place] [address] [id number] [address] [place] [address] Feb, Decubitus ulcer of right josselin t, stage 3 L89.893 and BMI 50.0-59.9, adult Z68.43 [facility] [place] [address] [facility] [id number] [address] [place] [id number] Feb, Bipolar I disorder, most rec ent episode (or current) mixed, moderate F31.62 [facility] [place] [address] [facility] [id number] [address] [place] [id number] Feb, [facility] [place] [address] [facility] [id number] [address] [place] [phone] January, [facility] [place] [address] [facility] [id number] [address] [place] [id number] January, Chronic pain G89.29 [facility] [place] [address] [facility] [id number] [address] [place] [id number] January, Bipolar I disorder, most rec ent episode (or current) mixed, moderate F31.62 [facility] [place] [address] [facility] [id number] [address] [place] [phone] January, Bipolar I disorder, most rec ent episode (or current) mixed, moderate F31.62 [facility] [place] [address] [facility] [id number] [address] [place] [address] Dec, Bipolar I disorder, most rec ent episode (or current) mixed, moderate F31.62 and BMI 50.0-59.9, adult Z68.43 [place] [address] [facility] [id number] [address] [place] [address] Dec, Bipolar I disorder, most rec ent episode (or current) mixed, moderate F31.62 [place] [address] [place] [id number] [address] [place] [id number] Dec, Chronic pain G89.29 [place] [address] [facility] [id number] [address] [place] [address] Dec, DM neuro manif type II E11.4 9 ; Right flank pain R10.9 ; 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 ; Encounter for medication monitoring Z51.81 and BMI 50.0-59.9, adult Z68.43 [place] [address] [place] [id number] [address] [place] [address] Dec, Bipolar I disorder, most rec ent episode (or current) mixed, moderate F31.62 [place] [address] [place] [id number] [address] [place] [address] Nov, Bipolar I disorder, most rec ent episode (or current) mixed, moderate F31.62 [place] [address] [place] [id number] [address] [place] [address] Nov, Chronic pain G89.29 [place] [address] [place] [id number] [address] [place] [phone] Nov, Bipolar I disorder, most rec ent episode (or current) mixed, moderate F31.62 [place] [address] [facility] [id number] [address] [place] [address] Nov, Hypokalemia E87.6 [place] [address] [facility] [id number] [address] [place] [address] Nov, Bipolar I disorder, most rec ent episode (or current) mixed, moderate F31.62 [place] [address] [facility] [id number] [address] [place] [address] Oct, Chronic pain G89.29 [facility] [place] [address] [facility] [id number] [address] [place] [address] Oct, BMI 50.0-59.9, adult Z68.43 and Bipolar I disorder, most recent episode (or current) mixed, moderate F31.62 [place] [address] [place] [id number] [address] [place] [address] Oct, Bipolar I disorder, most rec ent episode (or current) mixed, moderate F31.62 [place] [address] [facility] [id number] [address] [place] [phone] Oct, [place] [address] [place] [id number] [place] [phone] Oct, Hypokalemia E87.6 [place] [address] [place] [id number] [place] [phone] Oct, DM neuro manif type II E11.4 9 [place] [address] [facility] [id number] [address] [place] [address] Oct, Bipolar I disorder, most rec ent episode (or current) mixed, moderate F31.62 [place] [address] [facility] [id number] [address] [place] [address] Oct, Bipolar I disorder, most rec ent episode (or current) mixed, moderate F31.62 [place] [address] [place] [id number] [address] [place] [address] 14 Oct, 2017 Hyperkalemia E87.5 ; Falling R29.6 ; BMI 50.0-59.9, adult Z68.43 and Acute left ankle pain M25.572 [facility] [place] [address] [place] [id number] [address] [place] [address] Oct, DM neuro manif type II E11.4 9 [facility] [place] [address] [place] [id number] [address] [place] [address] Oct, [place] [id number] [place] [address] Sep, Chronic pain G89.29 [place] [address] [place] [id number] [address] [place] [address] Sep, [place] [address] [place] [id number] [place] [address] Sep, Bilateral primary osteoarthr itis of knee M17.0 [place] [address] [place] [id number] [place] [address] Sep, Generalized edema R60.1 [place] [address] [address] Sep, Bipolar I disorder, most rec ent episode (or current) mixed, moderate F31.62 [place] [address] [address] Sep, Hypoxia R09.02 ; Other hyper volemia E87.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 ; Anemia of chronic illness D63.8 and BMI 50.0- 59.9, adult Z68.43 [place] [address] [place] [id number] [address] [place] [address] Sep, [place] [address] [address] Sep, Bipolar I disorder, most rec ent episode (or current) mixed, moderate F31.62 [place] [address] [place] [id number] [address] [place] [address] Aug, Chronic pain G89.29 [place] [address] [place] [id number] [address] [place] [address] Aug, Generalized edema R60.1 [place] [address] [place] [id number] [address] [place] [phone] Aug, [facility] [place] [address] [place] [id number] [address] [place] [address] Aug, [facility] [place] [address] [facility] [id number] [address] [place] [address] Aug, Bipolar I disorder, most rec ent episode (or current) mixed, moderate F31.62 [place] [address] [place] [id number] [address] [place] [phone] Aug, Bipolar I disorder, most rec ent episode (or current) mixed, moderate F31.62 [place] [address] [facility] [id number] [address] [place] [id number] Aug, Chronic pain G89.29 [place] [address] [place] [id number] [address] [place] [phone] Jul, Bipolar I disorder, most rec ent episode (or current) mixed, moderate F31.62 [place] [address] [place] [id number] [address] [place] [address] Jul, Bipolar I disorder, most rec ent episode (or current) mixed, moderate F31.62 and BMI 60.0-69.9, adult Z68.44 [place] [address] [place] [id number] [address] [place] [id number] 16 Jul, 2017 Bipolar I disorder, most rec ent episode (or current) mixed, moderate F31.62 [place] [address] [place] [id number] [address] [place] [address] Jul, Chronic pain G89.29 [place] [address] [place] [id number] [address] [place] [phone] 02 Jul, 2017 Bipolar I disorder, most rec ent episode (or current) mixed, moderate F31.62 [place] [address] [place] [id number] [address] [place] [address] Jun, Polyneuropathy associated wi th underlying disease G63 and Diabetes E11.9 [place] [address] [facility] [id number] [address] [place] [id number] 16 Jun, 2017 Bipolar I disorder, most rec ent episode (or current) mixed, moderate F31.62 [facility] [place] [address] [facility] [id number] [address] [place] [phone] 09 Jun, 2017 Chronic pain G89.29 [facility] [place] [address] [facility] [id number] [address] [place] [address] May, Bipolar I disorder, most rec ent episode (or current) mixed, moderate F31.62 [facility] [place] [address] [facility] [id number] [address] [place] [phone] 21 May, 2017 Bipolar I disorder, most rec ent episode (or current) mixed, moderate F31.62 [facility] [place] [address] [place] [id number] [address] [place] [address] May, Diabetic polyneuropathy asso ciated with type 2 diabetes mellitus E11.42 [place] [address] [facility] [id number] [address] [place] [phone] May, Bipolar I disorder, most rec ent episode (or current) mixed, moderate F31.62 [place] 8[address]241 N [facility] [id number] [address] [place] [phone] 13 May, 2017 Bipolar I disorder, most rec ent episode (or current) mixed, moderate F31.62 [place] [address] [place] [id number] [address] [place] [address] May, Chronic pain G89.29 [facility] [place] [address] [facility] [id number] [address] [place] [id number] Apr, Bipolar I disorder, most rec ent episode (or current) mixed, moderate F31.62 [facility] [place] [address] [facility] [id number] [address] [place] [id number] Apr, [facility] [place] [address] [facility] [id number] [address] [place] [address] Apr, Chronic pain G89.29 and DM n euro manif type II E11.49 [facility] [place] [address] [id number] [address] [place] [phone] Apr, [facility] [place] [address] [id number] [address] [place] [id number] Apr, Bipolar I disorder, most rec ent episode (or current) mixed, moderate F31.62 [facility] [place] [address] [id number] [address] [place] [phone] Apr, Chronic pain G89.29 [facility] [place] [address] [id number] [address] [place] [phone] Apr, Iliotibial band syndrome, le ft M76.32 [facility] [place] [address] [id number] [address] [place] [phone] Apr, Bipolar I disorder, most rec ent episode (or current) mixed, moderate F31.62 [facility] [place] [address] [id number] [address] [place] [id number] Mar, Bipolar I disorder, most rec ent episode (or current) mixed, moderate F31.62 [facility] [place] [address] [id number] [address] [place] [phone] Mar, Bipolar I disorder, most rec ent episode (or current) mixed, moderate F31.62 [facility] [place] [address] [id number] [address] [place] [phone] Mar, [facility] [place] [address] [id number] [address] [place] [phone] Mar, Bipolar I disorder, most rec ent episode (or current) mixed, moderate F31.62 [facility] [place] [address] [id number] [address] [place] [phone] Mar, Chronic pain G89.29 [facility] [place] [address] [id number] [address] [place] [phone] Mar, Bipolar I disorder, most rec ent episode (or current) mixed, moderate F31.62 [facility] [place] [address] [id number] [address] [place] [phone] Mar, Bipolar I disorder, most rec ent episode (or current) mixed, moderate F31.62 [facility] [place] [address] [facility] [id number] [address] [place] [id number] Mar, Acute pain of left knee M25. 562 ; Left hip pain M25.552 ; Generalized edema R60.1 and Tongue swelling R22.0 [facility] [place] [address] [facility] [id number] [address] [place] [phone] Mar, [facility] [place] [address] [facility] [id number] [address] [place] [phone] Feb, Chronic pain G89.29 [facility] [place] [address] [facility] [id number] [address] [place] [id number] Feb, Diabetes E11.9 [facility] [place] [address] [facility] [id number] [address] [place] [address] January, Chronic pain G89.29 [facility] [place] [address] [facility] [id number] [address] [place] [phone] January, [facility] [place] [address] [facility] [id number] [address] [place] [phone] January, Bipolar I disorder, most rec ent episode (or current) mixed, moderate F31.62 [facility] [place] [address] [facility] [id number] [address] [place] [id number] Dec, Bipolar I disorder, most rec ent episode (or current) mixed, moderate F31.62 [facility] [place] [address] [facility] [id number] [address] [place] [phone] Dec, Chronic pain G89.29 [facility] [place] [address] [facility] [id number] [address] [place] [phone] Dec, Bipolar I disorder, most rec ent episode (or current) mixed, moderate F31.62 [facility] [place] [address] [facility] [id number] [address] [place] [phone] Dec, Diabetes E11.9 ; Essential h ypertension I10 ; Chronic pain G89.29 and Morbid obesity E66.01 [facility] [place] [address] [id number] [address] [place] [id number] Dec, [facility] [place] [address] [facility] [id number] [address] [place] [phone] Dec, Bipolar I disorder, most rec ent episode (or current) mixed, moderate F31.62 [facility] [place] [address] [id number] [address] [place] [phone] Dec, Bipolar I disorder, most rec ent episode (or current) mixed, moderate F31.62 [facility] [place] [address] [id number] [address] [place] [id number] Nov, Chronic pain G89.29 [facility] [place] [address] [facility] [id number] [address] [place] [phone] Nov, Bipolar I disorder, most rec ent episode (or current) mixed, moderate F31.62 [facility] [place] [address] [id number] [address] [place] [phone] Nov, [facility] [place] [address] [facility] [id number] [address] [place] [phone] Nov, Bipolar I disorder, most rec ent episode (or current) mixed, moderate F31.62 [facility] [place] [address] [facility] [id number] [address] [place] [id number] Nov, Bipolar I disorder, most rec ent episode (or current) mixed, moderate F31.62 [facility] [place] [address] [id number] [address] [place] [phone] Nov, [facility] [place] [address] [facility] [id number] [address] [place] [phone] Nov, [facility] [place] [address] [facility] [id number] [address] [place] [phone] Nov, [facility] [place] [address] [facility] [id number] [address] [place] [phone] Oct, Chronic pain G89.29 [facility] [place] [address] [id number] [address] [place] [id number] Oct, Bipolar I disorder, most rec ent episode (or current) mixed, moderate F31.62 [facility] [place] [address] [facility] [id number] [address] [place] [id number] Oct, [facility] [place] [address] [facility] [id number] [address] [place] [id number] Oct, Chronic pain G89.29 ; Diabet es E11.9 ; Anxiety F41.9 and 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 [facility] [place] [address] [facility] [id number] [address] [place] [id number] Oct, [facility] [place] [address] [facility] [id number] [address] [place] [phone] Oct, Diabetes E11.9 [facility] [place] [address] [facility] [place] [id number] [address] [place] [id number] Oct, Bipolar I disorder, most rec ent episode (or current) mixed, moderate F31.62 [facility] [place] [address] [facility] [id number] [address] [place] [id number] Sep, Chronic pain G89.29 [facility] [place] [address] [facility] [id number] [address] [place] [id number] Sep, Chronic pain G89.29 [facility] [place] [address] [facility] [id number] [address] [place] [id number] Aug, Chronic pain G89.29 [facility] [place] [address] [facility] [id number] [address] [place] [id number] Jul, [facility] [place] [address] [facility] [id number] [address] [place] [id number] Jul, Diabetes E11.9 [facility] [place] [address] [facility] [place] [id number] [address] [place] [id number] Jul, Chronic pain G89.29 [facility] [place] [address] [facility] [place] [id number] [address] [place] [phone] Jul, Bipolar I disorder, most rec ent episode (or current) mixed, moderate F31.62 [facility] [place] [address] [facility] [place] [id number] [address] [place] [id number] Jun, Bipolar I disorder, most rec ent episode (or current) mixed, moderate F31.62 [facility] [place] [address] [facility] [place] [id number] [address] [place] [phone] Jun, [facility] [place] [address] [facility] [place] [id number] [address] [place] [id number] Jun, Bipolar I disorder, most rec ent episode (or current) mixed, moderate F31.62 [place] [address] [address] [facility] [id number] [address] [place] [id number] May, Insomnia, unspecified type G 47.00 [facility] [place] [address] [facility] [id number] [address] [place] [phone] May, Bipolar I disorder, most rec ent episode (or current) mixed, moderate F31.62 [place] [address] [address] [facility] [id number] [address] [place] [id number] 14 May, 2016 [facility] [place] [address] [place] [id number] [address] [place] [id number] May, Bipolar I disorder, most rec ent episode (or current) mixed, moderate F31.62 [facility] [place] [address] [facility] [id number] [address] [place] [phone] May, Diabetes E11.9 and Essential hypertension I10 [facility] [place] [address] [facility] [id number] [address] [place] [address] Apr, Chronic pain G89.29 [facility] [place] [address] [facility] [id number] [address] [place] [id number] Apr, Bipolar I disorder, most rec ent episode (or current) mixed, moderate F31.62 [place] [address] [facility] [id number] [address] [place] [id number] Apr, [place] [address] [address] [facility] [id number] [address] [place] [address] Apr, [place] [address] [address] [facility] [id number] [address] [place] [address] Mar, Chronic pain G89.29 ; Headac he, unspecified headache type R51 ; Neuropathy G62.9 ; Pain of right hip joint M25.551 and Essential hypertension I10 [place] [address] [address] [facility] [id number] [address] [place] [address] Mar, Chronic pain G89.29 [place] [address] [address] [facility] [id number] [address] [place] [phone] Mar, Bipolar I disorder, most rec ent episode (or current) mixed, moderate F31.62 [place] [address] [address] [facility] [id number] [address] [place] [id number] Feb, Bipolar I disorder, most rec ent episode (or current) mixed, moderate F31.62 and Insomnia, unspecified type G47.00 [place] [address] [address] [facility] [id number] [address] [place] [id number] Feb, Chronic pain G89.29 [place] [address] [address] [facility] [id number] [address] [place] [phone] Feb, Bipolar I disorder, most rec ent episode (or current) mixed, moderate F31.62 [place] [address] [address] [facility] [id number] [address] [place] [id number] January, Bipolar I disorder, most rec ent episode (or current) mixed, moderate F31.62 [place] [address] [address] [facility] [id number] [address] [place] [phone] January, Chronic pain G89.29 [place] [address] [address] [facility] [id number] [address] [place] [phone] January, Chronic pain G89.29 and Esse ntial hypertension I10 [facility] [place] [address] [address] January, Bipolar I disorder, most rec ent episode (or current) mixed, moderate F31.62 [facility] [place] [address] [place] [id number] [address] [place] [id number] Dec, [facility] [place] [address] [place] [id number] [place] [phone] Dec, [facility] [place] [address] [place] [id number] [address] [place] [phone] Dec, [facility] [place] [address] [address] Dec, [facility] [place] [address] [address] Nov, Reactive airway disease J45. 909 [facility] [place] [address] [address] Nov, [facility] [place] [address] [address] Nov, [facility] [place] [address] [address] Nov, [facility] [place] [address] [address] Nov, [facility] [place] [address] [address] Nov, Onychomycosis B35.1 ; Hammer toe M20.40 ; [place] or callus L84 and DM neuro manif type II E11.49 [facility] [place] [address] [place] [id number] [place] [address] Nov, Chronic pain G89.29 ; Leukoc ytosis D72.829 and Diabetes E11.9 [facility] [place] [address] [address] Nov, [facility] [place] [address] [address] Oct, Bronchitis J40 [place] [address] [address] Oct, [facility] [place] [address] [address] Oct, [place] [address] [address] Oct, Mastoiditis, unspecified lat erality H70.90 and Type 2 diabetes mellitus with complication E11.8 [place] [address] [address] Sep, [place] [address] [address] Sep, Dysuria R30.0 ; Cough R05 ; Benign prostatic hyperplasia with lower urinary tract symptoms, unspecified morphology N40.1 ; Hypokalemia E87.6 and Eustachian tube dysfunction, unspecified laterality H69.80 [place] [address] [address] Sep, Moderate mixed bipolar I dis order F31.62 [place] [address] [address] Sep, Hypokalemia E87.6 [place] [address] [address] Sep, [place] [address] [address] Sep, Upper respiratory tract infe ction, unspecified type J06.9 [place] [address] [address] [place] [id number] [address] [place] [address] Aug, [place] [address] [address] Aug, Dysuria R30.0 [facility] [place] [address] [id number] [address] [place] [id number] Aug, [facility] [place] [address] [id number] [address] [place] [id number] Jul, [facility] [place] [address] [id number] [address] [place] [id number] Jul, [facility] [place] [address] [id number] [address] [place] [id number] Jul, [facility] [place] [address] [id number] [address] [place] [phone] Jul, [facility] [place] [address] [id number] [address] [place] [id number] Jun, [facility] [place] [address] [id number] [address] [place] [id number] Jun, [facility] [place] [address] [id number] [address] [place] [phone] Jun, [facility] [place] [address] [id number] [address] [place] [id number] May, [facility] [place] [address] [id number] [address] [place] [id number] May, Bipolar I disorder, most rec ent episode (or current) mixed, moderate 296.62 [facility] [place] [address] [id number] [address] [place] [id number] 16 May, 2015 [facility] [place] [address] [id number] [address] [place] [id number] May, Bipolar I disorder, most rec ent episode (or current) mixed, moderate 296.62 and Major depressive disorder, recurrent episode, severe, specified as with psychotic behavior 296.34 [facility] [place] [address] [id number] [address] [place] [id number] May, Bipolar I disorder, most rec ent episode (or current) mixed, moderate 296.62 [facility] [place] [address] [id number] [address] [place] [id number] May, [facility] [place] [address] [id number] [address] [place] [phone] Apr, [facility] [place] [address] [id number] [address] [place] [id number] Apr, [facility] [place] [address] [id number] [address] [place] [id number] Apr, Unspecified disorder of kidn ey and ureter 593.9 and Diabetes mellitus type 2, uncontrolled 250.02 [facility] [place] [address] [id number] [address] [place] [id number] Apr, [facility] [place] [address] [id number] [address] [place] [phone] Apr, [facility] [place] [address] [id number] [address] [place] [id number] Apr, [facility] [place] [address] [id number] [address] [place] [id number] Apr, [facility] [place] [address] [id number] [address] [place] [id number] Apr, Diabetes mellitus type II, u ncontrolled 250.02 [facility] [place] [address] [id number] [address] [place] [id number] Apr, [facility] [place] [address] [id number] [address] [place] [phone] Mar, [facility] [place] [address] [id number] [address] [place] [id number] Mar, [facility] [place] [address] [id number] [address] [place] [id number] Mar, [facility] [place] [address] [id number] [address] [place] [id number] Mar, Major depressive disorder, r ecurrent episode, severe, specified as with psychotic behavior 296.34 and Bipolar I disorder, most recent episode (or current) mixed, moderate 296.62 [facility] [place] [address] [address] Mar, Diabetes 250.00 ; Anuria 788 .5 ; Nausea and vomiting 787.01 and Diarrhea 787.91 [facility] [place] [id number] [place] [address] Mar, Diabetes 250.00 [facility] [place] [address] [place] [id number] [place] [phone] Mar, [facility] [place] [address] [address] Mar, Diabetes 250.00 [facility] [place] [address] [place] [id number] [place] [phone] Mar, [facility] [place] [address] [address] Mar, [facility] [place] [address] [place] [id number] [address] [place] [phone] Mar, [facility] [place] [address] [address] Mar, [facility] [place] [address] [place] [id number] [address] [place] [id number] Mar, Bipolar I disorder, most rec ent episode (or current) mixed, moderate 296.62 and Major depressive disorder, recurrent episode, severe, specified as with psychotic behavior 296.34 [facility] [place] [address] [place] [id number] [address] [place] [address] Mar, Magnesium deficiency 275.2 ; Hypokalemia 276.8 ; Nausea & vomiting 787.01 and Diabetes mellitus type 2, uncontrolled 250.02 [facility] [place] [address] [place] [id number] [address] [place] [id number] Feb, [facility] [place] [address] [address] Feb, Bipolar I disorder, most rec ent episode (or current) mixed, moderate 296.62 [place] [address] [address] Feb, Nausea and vomiting 787.01 ; Left elbow pain 719.42 ; Anuria 788.5 and Diabetes 250.[address] [address] Feb, [place] [address] [address] Feb, Hypopotassemia 276.8 and Hyp okalemia 276.[address] [address] Feb, Hypopotassemia 276.8 and Hyp okalemia 276.[address] [address] Feb, Seborrheic keratoses 702.19 [place] [address] [address] Feb, Hypopotassemia 276.8 and Low magnesium levels 275.2 [place] [address] [address] January, [place] [address] [address] January, [place] [address] [address] January, [place] [address] [place] [id number] [place] [phone] January, Scalp lesion 709.9 [place] [address] [address] January, [place] [address] [address] Dec, Tear of medial cartilage or meniscus of knee, current 836.0 and 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 [facility] [address] [id number] [address] [place] [address], [place] [address] Dec, [facility] [address] [id number] [address] [place] [address], [place] [address] Dec, [facility] [address] [id number] [address] [place] [address], [place] [address] 28 Dec, 2014 Squamous cell carcinoma, 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 [facility] [address] [id number] [address] [place] [address], [place] [address] 14 Dec, 2014 [facility] [address] [id number] [address] [place] [address], [place] [address] Dec, [facility] [address] [id number] [address] [place] [address], [place] [address] Nov, [facility] [address] [id number] [address] [place] [address], [place] [address] Nov, [facility] [address] [id number] [address] [place] [address], [place] [address] Nov, [facility] [address] [id number] [address] [place] [address], [place] [address] Nov, [facility] [place] [address] [id number] [address] [place] [id number] Nov, [facility] [address] [id number] [address] [place] [address], [place] [address] Nov, [facility] [address] [id number] [address] [place] [id number] Nov, [facility] [address] [id number] [address] [place] [address], [place] [address] Nov, [facility] [address] [id number] [address] [place] [address], [place] [address] Nov, [facility] [address] [id number] [address] [place] [id number] Nov, [facility] [address] [id number] [address] [place] [address], [place] [address] Nov, [facility] [address] [id number] [address] [place] [address], [place] [address] Nov, [facility] [address] [id number] [address] [place] [address], [place] [address] Oct, 2014 [facility] [address] [id number] [address] [place] [address], [place] [address] Oct, 2014 [facility] [address] [id number] [address] [place] [address], [place] [address] Oct, [facility] [address] [id number] [address] [place] [address], [place] [address] Oct, 2014 [facility] [address] [id number] [address] [place] [address], [place] [address] Oct, [facility] [address] [id number] [address] [place] [address], [place] [address] Oct, [facility] [address] [id number] [address] [place] [address], [place] [address] Oct, [facility] [address] [id number] [address] [place] [address], [place] [address] Oct, [facility] [address] [id number] [address] [place] [address], [place] [address] Oct, [facility] [address] [id number] [address] [place] [address], [place] [address] Sep, [facility] [address] [id number] [address] [place] [address], [place] [address] Sep, [facility] [address] [id number] [address] [place] [address], [place] [address] Sep, [facility] [address] [id number] [address] [place] [address], [place] [address] Sep, [facility] [address] [id number] [address] [place] [address], [place] [address] Sep, [facility] [address] [id number] [address] [place] [address], [place] [address] Sep, [facility] [address] [id number] [address] [place] [address], [place] [address] Sep, [facility] [address] [id number] [address] [place] [address], [place] [address] Sep, [facility] [address] [id number] [address] [place] [address], [place] [address] Sep, [facility] [address] [id number] [address] [place] [address], [place] [address] Sep, [facility] [address] [id number] [address] [place] [address], [place] [address] Sep, [facility] [address] [id number] [address] [place] [address], [place] [address] Sep, [facility] [address] [id number] [address] [place] [address], [place] [address] Sep, [facility] [address] [id number] [address] [place] [address], [place] [address] Sep, [facility] [address] [id number] [address] [place] [address], [place] [address] Sep, [facility] [address] [id number] [address] [place] [address], [place] [address] Sep, [facility] [address] [id number] [address] [place] [address], [place] [address] Aug, [facility] [address] [id number] [address] [place] [address], [place] [address] Aug, [facility] [address] [id number] [address] [place] [address], [place] [address] Aug, [facility] [address] [id number] [address] [place] [address], [place] [address] Aug, [facility] [address] [id number] [facility] [address] Aug, [facility] [address] [id number] [facility] [address] Aug, [facility] [address] [id number] [facility] [address] Aug, [facility] [address] [id number] [facility] [address] Aug, [facility] [address] [id number] [facility] [address] Aug, [facility] [address] [id number] [address] [place] [address], [place] [address] Aug, [facility] [address] [id number] [facility] [address] Aug, [facility] [place] [id number] Aug, [facility] [address] [id number] [address] [place] [address], [place] [id number] Aug, [facility] [address] [id number] [address] [place] [address], [place] [address] Aug, [facility] [address] [id number] [address] [place] [address], [place] [address] Aug, [facility] [address] [id number] [address] [place] [address], [place] [address] Aug, [facility] [address] [id number] [address] [place] [address], [place] [id number] Aug, [facility] [address] [id number] [address] [place] [address], [place] [address] Aug, [facility] [address] [id number] [address] [place] [address], [place] [address] Aug, [facility] [address] [id number] [address] [place] [address], [place] [address] Aug, [facility] [address] [id number] [address] [place] [address], [place] [address] Aug, [facility] [address] [id number] [address] [place] [address], [place] [address] Aug, [facility] [address] [id number] [address] [place] [address], [place] [address] Aug, [facility] [address] [id number] [address] [place] [address], [place] [address] Aug, [facility] [address] [id number] [address] [place] [address], [place] [address] Aug, [facility] [address] [id number] [address] [place] [address], [place] [address] Aug, [facility] [address] [id number] [address] [place] [address], [place] [id number] Aug, [facility] [address] [id number] [address] [place] [address], [place] [address] Aug, [facility] [address] [id number] [address] [place] [address], [place] [address] Aug, [facility] [address] [id number] [address] [place] [address], [place] [address] Aug, [facility] [address] [id number] [address] [place] [address], [place] [id number] Jul, [facility] [address] [id number] [address] [place] [address], [place] [address] Jul, [facility] [address] [id number] [address] [place] [address], [place] [address] Jul, [facility] [address] [id number] [address] [place] [address], [place] [id number] Jul, [facility] [address] [id number] [address] [place] [address], [place] [address] Jul, [facility] [address] [id number] [address] [place] [address], [place] [address] Jul, [facility] [address] [id number] [address] [place] [address], [place] [address] Jul, [facility] [address] [id number] [address] [place] [address], [place] [id number] Jul, [facility] [address] [id number] [address] [place] [address], [place] [address] Jul, [facility] [address] [id number] [address] [place] [address], [place] [address] Jul, [facility] [address] [id number] [address] [place] [address], [place] [address] Jun, [facility] [address] [id number] [address] [place] [address], [place] [address] Jun, [facility] [address] [id number] [address] [place] [address], [place] [address] Jun, [facility] [address] [id number] [address] [place] [address], [place] [address] Jun, [facility] [address] [id number] [address] [place] [address], [place] [address] Jun, [facility] [address] [id number] [address] [place] [address], [place] [address] Jun, [facility] [address] [id number] [address] [place] [address], [place] [address] Jun, [facility] [address] [id number] [address] [place] [address], [place] [address] Jun, [facility] [address] [id number] [address] [place] [address], [place] [address] Jun, [facility] [address] [id number] [address] [place] [address], [place] [address] Jun, [facility] [address] [id number] [address] [place] [address], [place] [address] May, [facility] [address] [id number] [address] [place] [address], [place] [address] 29 Sep, 2013 [facility] [address] [id number] [address] [place] [address], [place] [address] 26 Sep, 2013 [facility] [address] [id number] [address] [place] [address], [place] [address] 26 Sep, 2013 [facility] [address] [id number] [address] [place] [address], [place] [address] 17 Sep, 2013 [facility] [address] [id number] [address] [place] [address], [place] [address] 17 Sep, 2013 [facility] [address] [id number] [address] [place] [address], [place] [address] 15 Sep, 2013 [facility] [address] [id number] [address] [place] [address], [place] [address] 15 Sep, 2013 [facility] [address] [id number] [address] [place] [address], [place] [address] 15 Sep, 2013 [facility] [address] [id number] [address] [place] [address], [place] [address] 15 Sep, 2013 [facility] [address] [id number] [address] [place] [address], [place] [address] 10 Sep, 2013 [facility] [address] [id number] [address] [place] [address], [place] [address] 10 Sep, 2013 [facility] [address] [id number] [address] [place] [address], [place] [address] 09 Sep, 2013 [facility] [address] [id number] [address] [place] [address], [place] [address] 09 Sep, 2013 [facility] [address] [id number] [address] [place] [address], [place] [address] 04 Sep, 2013 [facility] [address] [id number] [address] [place] [address], [place] [address] 04 Sep, 2013 [facility] [address] [id number] [address] [place] [address], [place] [address] Apr, [facility] [address] [id number] [address] [place] [address], [place] [address] Apr, [facility] [address] [id number] [address] [place] [address], [place] [address] Apr, [facility] [address] [id number] [address] [place] [address], [place] [address] Apr, [facility] [address] [id number] [address] [place] [address], [place] [address] Apr, [facility] [address] [id number] [address] [place] [address], [place] [address] Apr, [facility] [address] [id number] [address] [place] [address], [place] [address] Apr, [facility] [address] [id number] [address] [place] [address], [place] [address] Apr, [facility] [address] [id number] [address] [place] [address], [place] [address] Apr, [facility] [address] [id number] [address] [place] [address], [place] [address] Apr, [facility] [address] [id number] [address] [place] [address], [place] [address] Apr, [facility] [address] [id number] [address] [place] [address], [place] [address] Apr, [facility] [address] [id number] [address] [place] [address], [place] [address] Apr, [facility] [address] [id number] [address] [place] [address], [place] [address] Apr, [facility] [address] [id number] [address] [place] [address], [place] [address] Apr, [facility] [address] [id number] [address] [place] [address], [place] [address] Mar, [facility] [address] [id number] [facility] [address] Mar, 2013 [facility] [address] [id number] [facility] [address] Mar, 2013 [facility] [address] [id number] [facility] [address] Mar, 2013 [facility] [address] [id number] [facility] [address] Mar, 2013 [facility] [address] [id number] [facility] [address] Mar, 2013 [facility] [address] [id number] [address] [place] [address], [place] [address] Mar, 2013 [facility] [address] [id number] [address] [place] [address], [place] [address] Mar, 2013 [facility] [address] [id number] [address] [place] [address], [place] [address] Mar, 2013 [facility] [address] [id number] [address] [place] [address], [place] [address] Mar, 2013 [facility] [address] [id number] [address] [place] [address], [place] [address] Mar, 2013 [facility] [address] [id number] [address] [place] [address], [place] [address] Mar, 2013 [facility] [address] [id number] [address] [place] [address], [place] [address] Mar, 2013 [facility] [address] [id number] [address] [place] [address], [place] [address] Mar, 2013 [facility] [address] [id number] [address] [place] [address], [place] [address] Mar, 2013 [facility] [address] [id number] [address] [place] [address], [place] [address] Mar, 2013 [facility] [address] [id number] [address] [place] [address], [place] [address] Mar, [facility] [address] [id number] [facility] [address] Mar, [facility] [address] [id number] [facility] [address] Feb, [facility] [address] [id number] [facility] [address] Feb, [facility] [address] [id number] [facility] [address] Feb, [facility] [address] [id number] [facility] [address] Feb, [facility] [address] [id number] [address] [place] [address], [place] [address] Feb, [facility] [address] [id number] [address] [place] [address], [place] [address] Feb, [facility] [address] [id number] [address] [place] [address], [place] [address] Feb, [facility] [address] [id number] [address] [place] [address], [place] [address] Feb, [facility] [address] [id number] [address] [place] [address], [place] [address] Feb, [facility] [address] [id number] [address] [place] [address], [place] [address] Feb, [facility] [address] [id number] [address] [place] [address], [place] [address] Feb, [facility] [address] [id number] [address] [place] [address], [place] [address] Feb, [facility] [address] [id number] [address] [place] [address], [place] [address] Feb, [facility] [address] [id number] [address] [place] [address], [place] [address] Feb, [facility] [address] [id number] [facility] [address] January, [facility] [address] [id number] [address] [place] [address], [place] [address] January, [facility] [address] [id number] [address] [place] [address], [place] [address] January, [facility] [address] [id number] [address] [place] [address], [place] [address] January, [facility] [address] [id number] [address] [place] [address], [place] [address] January, [facility] [address] [id number] [address] [place] [address], [place] [address] January, [facility] [address] [id number] [address] [place] [address], [place] [address] January, [facility] [address] [id number] [address] [place] [address], [place] [address] January, [facility] [address] [id number] [address] [place] [address], [place] [address] January, [facility] [address] [id number] [address] [place] [address], [place] [address] January, [facility] [address] [id number] [address] [place] [address], [place] [address] January, [facility] [address] [id number] [address] [place] [address], [place] [address] January, [facility] [address] [id number] [address] [place] [address], [place] [address] January, [facility] [address] [id number] [address] [place] [address], [place] [address] January, [facility] [address] [id number] [address] [place] [address], [place] [address] Dec, [facility] [address] [id number] [address] [place] [address], [place] [address] Dec, [facility] [address] [id number] [facility] [address] Dec, [facility] [address] [id number] [facility] [address] Dec, [facility] [address] [id number] [facility] [address] Dec, [facility] [address] [id number] [address] [place] [address], [place] [address] Dec, [facility] [address] [id number] [facility] [address] Dec, [facility] [address] [id number] [address] [place] [address], [place] [address] Dec, [facility] [address] [id number] [address] [place] [address], [place] [address] Dec, [facility] [address] [id number] [address] [place] [address], [place] [address] Dec, [facility] [address] [id number] [address] [place] [address], [place] [address] Nov, [facility] [address] [id number] [address] [place] [address], [place] [address] Nov, [facility] [address] [id number] [address] [place] [address], [place] [address] Nov, [facility] [address] [id number] [address] [place] [address], [place] [address] Nov, [facility] [address] [id number] [address] [place] [address], [place] [address] Nov, [facility] [address] [id number] [address] [place] [address], [place] [address] Nov, [facility] [address] [id number] [address] [place] [address], [place] [address] Nov, [facility] [address] [id number] [address] [place] [address], [place] [address] Nov, [facility] [address] [id number] [address] [place] [address], [place] [address] Nov, [facility] [address] [id number] [address] [place] [address], [place] [address] Nov, [facility] [address] [id number] [address] [place] [address], [place] [address] Oct, [facility] [address] [id number] [address] [place] [address], [place] [address] Oct, [facility] [address] [id number] [address] [place] [address], [place] [address] Oct, [facility] [address] [id number] [address] [place] [address], [place] [address] Oct, [facility] [address] [id number] [address] [place] [address], [place] [address] Oct, [facility] [address] [id number] [address] [place] [address], [place] [address] Oct, [facility] [address] [id number] [address] [place] [address], [place] [address] Oct, [facility] [address] [id number] [address] [place] [address], [place] [address] Oct, [facility] [address] [id number] [address] [place] [address], [place] [address] Oct, 2013 [facility] [address] [id number] [address] [place] [address], [place] [address] Oct, 2013 [facility] [address] [id number] [address] [place] [address], [place] [address] Oct, 2013 [facility] [address] [id number] [address] [place] [address], [place] [address] Oct, 2013 [facility] [address] [id number] [address] [place] [address], [place] [address] Oct, [facility] [address] [id number] [address] [place] [address], [place] [address] Oct, [facility] [address] [id number] [address] [place] [address], [place] [address] Sep, [facility] [address] [id number] [address] [place] [address], [place] [address] Sep, [facility] [address] [id number] [address] [place] [address], [place] [address] Sep, [facility] [address] [id number] [address] [place] [address], [place] [address] Sep, [facility] [address] [id number] [address] [place] [address], [place] [address] Sep, [facility] [address] [id number] [address] [place] [address], [place] [address] Sep, [facility] [address] [id number] [address] [place] [address], [place] [address] Sep, [facility] [address] [id number] [address] [place] [address], [place] [address] Sep, [facility] [address] [id number] [address] [place] [address], [place] [address] Sep, [facility] [address] [id number] [address] [place] [address], [place] [address] Sep, [facility] [address] [id number] [address] [place] [address], [place] [address] Aug, [facility] [address] [id number] [address] [place] [address], [place] [address] Aug, [facility] [address] [id number] [address] [place] [address], [place] [address] Jul, [facility] [address] [id number] [address] [place] [address], [place] [address] Jul, [facility] [address] [id number] [address] [place] [address], [place] [address] 13 Jul, 2013 [facility] [address] [id number] [address] [place] [address], [place] [address] Jul, [facility] [address] [id number] [address] [place] [address], [place] [address] Jul, [facility] [address] [id number] [address] [place] [address], [place] [address] Jul, [facility] [address] [id number] [address] [place] [address], [place] [address] Jul, [facility] [address] [id number] [address] [place] [address], [place] [address] Jul, [facility] [address] [id number] [address] [place] [address], [place] [address] Jul, [facility] [address] [id number] [address] [place] [address], [place] [address] Jul, [facility] [address] [id number] [address] [place] [address], [place] [address] Jul, [facility] [address] [id number] [address] [place] [address], [place] [address] Jul, [facility] [address] [id number] [address] [place] [address], [place] [address] Jul, [facility] [address] [id number] [address] [place] [address], [place] [address] Jul, [facility] [address] [id number] [address] [place] [address] Jul, [facility] [address] [id number] [address] [place] [address] Jul, [facility] [address] [id number] [address] [place] [address], [place] [address] Jul, [facility] [address] [id number] [address] [place] [address], [place] [address] Jul, [facility] [address] [id number] [address] [place] [address], [place] [address] Jul, [facility] [address] [id number] [address] [place] [address], [place] [address] Jun, 2012 [facility] [address] [id number] [address] [place] [address], [place] [address] Jun, 2012 [facility] [address] [id number] [address] [place] [address], [place] [address] Jun, 2012 [facility] [address] [id number] [address] [place] [address], [place] [address] Jun, 2012 [facility] [address] [id number] [address] [place] [address], [place] [address] Jun, 2012 [facility] [address] [id number] [address] [place] [address], [place] [address] Jun, 2012 [facility] [address] [id number] [address] [place] [address], [place] [address] Jun, [facility] [address] [id number] [address] [place] [address], [place] [address] Jun, [facility] [address] [id number] [address] [place] [address], [place] [address] Jun, [facility] [address] [id number] [address] [place] [address], [place] [address] Jun, [facility] [address] [id number] [address] [place] [address], [place] [address] Jun, [facility] [address] [id number] [address] [place] [address], [place] [address] 26 May, 2012 [facility] [address] [id number] [address] [place] [address], [place] [address] 25 May, 2012 [facility] [address] [id number] [address] [place] [address], [place] [address] 19 May, 2012 [facility] [address] [id number] [address] [place] [address], [place] [address] 17 May, 2013 [facility] [address] [id number] [facility] [address] 11 May, 2013 [facility] [address] [id number] [address] [place] [address], [place] [address] 10 May, 2013 [facility] [address] [id number] [address] [place] [address], [place] [address] May, [facility] [address] [id number] [address] [place] [address], [place] [address] 05 May, 2013 [facility] [address] [id number] [address] [place] [address], [place] [address] Apr, [facility] [address] [id number] [address] [place] [address], [place] [address] Apr, [facility] [address] [id number] [address] [place] [address], [place] [address] Apr, [facility] [address] [id number] [address] [place] [address], [place] [address] Apr, [facility] [address] [id number] [address] [place] [address], [place] [address] Apr, [facility] [address] [id number] [address] [place] [address], [place] [address] Mar, [facility] [address] [id number] [address] [place] [address], [place] [address] Mar, [facility] [address] [id number] [address] [place] [address], [place] [address] Mar, [facility] [address] [id number] [address] [place] [address], [place] [address] Mar, [facility] [address] [id number] [address] [place] [address], [place] [address] Mar, [facility] [address] [id number] [address] [place] [address], [place] [address] Mar, [facility] [address] [id number] [address] [place] [address], [place] [address] Mar, [facility] [address] [id number] [address] [place] [address], [place] [address] Mar, [facility] [address] [id number] [address] [place] [address], [place] [address] Feb, [facility] [address] [id number] [address] [place] [address], [place] [address] Feb, [facility] [address] [id number] [address] [place] [address], [place] [address] January, [facility] [address] [id number] [address] [place] [address], [place] [address] January, [facility] [address] [id number] [address] [place] [address], [place] [address] Dec, [facility] [address] [id number] [address] [place] [address], [place] [address] Dec, [facility] [address] [id number] [address] [place] [address], [place] [address] Nov, [facility] [address] [id number] [address] [place] [address], [place] [address] Nov, [facility] [address] [id number] [address] [place] [address], [place] [address] Nov, [facility] [address] [id number] [address] [place] [address], [place] [address] Nov, [facility] [address] [id number] [address] [place] [address], [place] [address] Oct, [facility] [address] [id number] [address] [place] [address], [place] [address] Oct, [facility] [address] [id number] [address] [place] [address], [place] [address] Oct, [facility] [address] [id number] [address] [place] [address], [place] [address] Oct, [facility] [address] [id number] [address] [place] [address], [place] [address] 16 Oct, 2012 [facility] [address] [id number] [address] [place] [address], [place] [address] 14 Oct, 2012 [facility] [address] [id number] [address] [place] [address], [place] [address] 08 Oct, 2012 [facility] [address] [id number] [address] [place] [address], [place] [id number] 07 Oct, 2012 [facility] [address] [id number] [address] [place] [address], [place] [address] Oct, [facility] [address] [id number] [address] [place] [address], [place] [address] Sep, [facility] [facility] [address] [id number] [address] [place] [address], [place] [address] Sep, [facility] [address] [id number] [address] [place] [address], [place] [address] Sep, [facility] [address] [id number] [address] [place] [address], [place] [address] Sep, [facility] [address] [id number] [address] [place] [address], [place] [address] Sep, [facility] [address] [id number] [address] [place] [address], [place] [address] Sep, [facility] [address] [id number] [address] [place] [address], [place] [address] Sep, [facility] [address] [id number] [address] [place] [address], [place] [address] Sep, [facility] [address] [id number] [address] [place] [address], [place] [address] Aug, [facility] [address] [id number] [address] [place] [address], [place] [address] Aug, [facility] [address] [id number] [address] [place] [address], [place] [address] Aug, [facility] [address] [id number] [address] [place] [address], [place] [address] Aug, [facility] [address] [id number] [address] [place] [address], [place] [address] Aug, [facility] [address] [id number] [address] [place] [address], [place] [address] Aug, [facility] [address] [id number] [address] [place] [address], [place] [address] Aug, [facility] [address] [id number] [address] [place] [address], [place] [address] Aug, [facility] [address] [id number] [address] [place] [address], [place] [address] Jul, [facility] [address] [id number] [address] [place] [address], [place] [address] Jul, [facility] [address] [id number] [address] [place] [address], [place] [address] Jul, [facility] [address] [id number] [address] [place] [address], [place] [address] Jul, [facility] [address] [id number] [address] [place] [address], [place] [address] Jul, [facility] [address] [id number] [address] [place] [address], [place] [address] Jul, [facility] [address] [id number] [address] [place] [address], [place] [address] Jun, [facility] [address] [id number] [address] [place] [address], [place] [address] Jun, [facility] [address] [id number] [address] [place] [address], [place] [address] Jun, [facility] [address] [id number] [address] [place] [address], [place] [address] Jun, [facility] [address] [id number] [address] [place] [address], [place] [address] 22 Jun, 2012 [facility] [address] [id number] [address] [place] [address], [place] [address] Jun, [facility] [address] [id number] [address] [place] [address], [place] [address] 19 Jun, 2012 [facility] [address] [id number] [address] [place] [address], [place] [address] Jun, [facility] [address] [id number] [address] [place] [address], [place] [address] 10 Jun, 2012 [facility] [address] [id number] [address] [place] [address], [place] [address] 26 May, 2012 [facility] [address] [id number] [address] [place] [address], [place] [address] 24 May, 2012 [facility] [address] [id number] [address] [place] [address], [place] [address] 18 May, 2012 [facility] [address] [id number] [address] [place] [address], [place] [address] 30 Apr, 2012 [facility] [address] [id number] [address] [place] [address], [place] [address] 29 Apr, 2012 [facility] [address] [id number] [address] [place] [address], [place] [address] Apr, [facility] [address] [id number] [address] [place] [address], [place] [address] 14 Apr, 2012 [facility] [address] [id number] [address] [place] [address], [place] [address] Apr, [facility] [address] [id number] [address] [place] [address], [place] [address] Apr, [facility] [address] [id number] [address] [place] [address], [place] [address] Mar, [facility] [address] [id number] [address] [place] [address], [place] [address] Mar, [facility] [address] [id number] [address] [place] [address], [place] [address] Mar, [facility] [address] [id number] [address] [place] [address], [place] [address] Mar, [facility] [address] [id number] [address] [place] [address], [place] [address] Feb, [facility] [address] [id number] [address] [place] [address], [place] [address] Feb, [facility] [address] [id number] [address] [place] [address], [place] [address] Feb, [facility] [address] [id number] [address] [place] [address], [place] [address] Feb, [facility] [address] [id number] [address] [place] [address], [place] [address] Feb, [facility] [address] [id number] [address] [place] [address], [place] [address] January, [facility] [address] [id number] [address] [place] [address], [place] [address] January, [facility] [address] [id number] [address] [place] [address], [place] [address] January, [facility] [address] [id number] [address] [place] [address], [place] [address] January, [facility] [address] [id number] [address] [place] [address], [place] [address] January, [facility] [address] [id number] [address] [place] [address], [place] [address] January, [facility] [address] [id number] [address] [place] [address], [place] [address] Dec, [facility] [address] [id number] [address] [place] [address], [place] [address] Dec, [facility] [address] [id number] [address] [place] [address], [place] [address] 17 Dec, 2011 [facility] [address] [id number] [address] [place] [address], [place] [address] 09 Dec, 2011 [facility] [address] [id number] [address] [place] [address], [place] [address] 06 Dec, 2011 [facility] [address] [id number] [address] [place] [address], [place] [address] 27 Nov, 2011 [facility] [address] [id number] [address] [place] [address], [place] [address] 14 Nov, 2011 [facility] [address] [id number] [address] [place] [address], [place] [address] 12 Nov, 2011 [facility] [address] [id number] [address] [place] [address], [place] [address] 07 Nov, 2011 [facility] [address] [id number] [address] [place] [address], [place] [address] 29 Oct, 2011 [facility] [address] [id number] [address] [place] [address], [place] [address] 28 Oct, 2011 [facility] [address] [id number] [address] [place] [address], [place] [address] 24 Oct, 2011 [facility] [address] [id number] [address] [place] [address], [place] [address] 13 Oct, 2011 [facility] [address] [id number] [address] [place] [address], [place] [address] 08 Oct, 2011 [facility] [address] [id number] [address] [place] [address], [place] [address] Sep, [facility] [address] [id number] [address] [place] [address], [place] [address] 30 Sep, 2011 [facility] [address] [id number] [address] [place] [address], [place] [address] 12 Sep, 2011 [facility] [address] [id number] [address] [address] Sep, [facility] [address] [id number] [address] [place] [address], [place] [address] Sep, [facility] [address] [id number] [address] [place] [address], [place] [address] Sep, [facility] [address] [id number] [address] [place] [address], [place] [address] Aug, [facility] [address] [id number] [address] [place] [address] Aug, [facility] [address] [id number] [address] [place] [address], [place] [address] Aug, [facility] [address] [id number] [address] [place] [address] Jul, [facility] [address] [id number] [address] [place] [address], [place] [address] Jul, [facility] [address] [id number] [address] [place] [address] Jul, [facility] [address] [id number] [address] [place] [address] Jul, [facility] [address] [id number] [address] [place] [address] Jun, [facility] [address] [id number] [address] [place] [address] Jun, [facility] [address] [id number] [address] [place] [address] 18 Jun, 2011 [facility] [address] [id number] [address] [place] [address], [place] [address] Jun, [facility] [address] [id number] [address] [place] [address] Jun, [facility] [address] [id number] [address] [place] [address] Jun, [facility] [address] [id number] [address] [place] [address], [place] [address] 11 Mar, 2011 [facility] [address] [id number] [address] [place] [address], [place] [address] 18 Dec, 2010 [facility] [address] [id number] [address] [place] [address], [place] [address] 11 Dec, 2010 [facility] [address] [id number] [address] [place] [address], [place] [address] 18 Nov, 2010 [facility] [address] [id number] [address] [place] [address], [place] [address] 16 Nov, 2010 [facility] [address] [id number] [address] [place] [address], [place] [address] 10 Sep, 2010 [facility] [address] [id number] [address] [place] [address], [place] [address] 31 Aug, 2010 [facility] [address] [id number] [address] [place] [address], [place] [address] 29 Aug, 2010 [facility] [address] [id number] [address] [place] [address], [place] [address] 29 Aug, 2010 [facility] [address] [id number] [address] [place] [address], [place] [address] 29 Aug, 2010 [facility] [address] [id number] [address] [place] [address], [place] [address] 27 Aug, 2010 [facility] [address] [id number] [address] [place] [address], [place] [address] 14 Aug, 2010 [facility] [address] [id number] [address] [place] [address], [place] [address] 08 Aug, 2010 [facility] [address] [id number] [address] [place] [address], [place] [address] 08 Aug, 2010 [facility] [address] [id number] [address] [place] [address], [place] [address] 07 Aug, 2010 [facility] [address] [id number] [address] [place] [address], [place] [address] Aug, [facility] [address] [id number] [address] [place] [address], [place] [address] Aug, [facility] [address] [id number] [address] [place] [address], [place] [address] Aug, [facility] [address] [id number] [address] [place] [address], [place] [address] Jul, [facility] [address] [id number] [address] [place] [address], [place] [address] Jul, [facility] [address] [id number] [address] [place] [address], [place] [address] Jul, [facility] [address] [id number] [address] [place] [address], [place] [address] Jul, [facility] [address] [id number] [address] [place] [address], [place] [address] Jul, [facility] [address] [id number] [address] [place] [address] Jul, [facility] [address] [id number] [address] [place] [address], [place] [address] Jun, [facility] [address] [id number] [address] [place] [address] Jun, [facility] [address] [id number] [address] [place] [address] Jun, [facility] [address] [id number] [address] [place] [address] Jun, [facility] [address] [id number] [address] [place] [address] Apr, [facility] [address] [id number] [address] [place] [address] Mar, [facility] [address] [id number] [address] [place] [address] Feb, [facility] [address] [id number] [address] [place] [address] January, [facility] [address] [id number] [address] [place] [address], [place] [address] 15 Dec, 2009 [facility] [address] [id number] [address] [place] [address] Nov, [facility] [address] [id number] [address] [place] [address] 31 Aug, 2009 [facility] [address] [id number] [address] [place] [address] Aug, [facility] [address] [id number] [address] [place] [id number] Aug, [facility] [address] [id number] [address] [place] [address] Jul, [facility] [address] [id number] [address] [place] [id number] Jul, [facility] [address] [id number] [address] [place] [address] Jul, [facility] [address] [id number] [address] [place] [address] 30 Jun, 2009 [facility] [address] [id number] [address] [place] [address] 29 Jun, 2009 [facility] [address] [id number] [address] [place] [id number] Jun, [facility] [address] [id number] [address] [place] [address] Jun, [facility] [address] [id number] [address] [place] [address] Jun, [facility] [address] [id number] [address] [place] [id number] Jun, [facility] [address] [id number] [address] [place] [id number] Apr, [facility] [address] [facility] [id number] [address] [place] [id number] Apr, [facility] [place] [address] [facility] [place] [id number] [address] [place] [address] Feb, [facility] [place] [address] [facility] [id number] [address] [place] [id number] January, [facility] [place] [address] [facility] [id number] [address] [place] [id number] Dec, IMMUNIZATIONS No Known Immunizations SOCIAL HISTORY Never Assessed REASON FOR VISIT PLAN OF CARE VITAL SIGNS MEDICATIONS Unknown Medications RESULTS No Results PROCEDURES No Known procedures INSTRUCTIONS MEDICATIONS ADMINISTERED No Known Medications MEDICAL (GENERAL) HISTORY Type Description Date Medical History type II diabetes Medical History coronary artery disease stress test Medical History chronic obstructive pulmonary disease (C OPD) Medical History gastroesophageal reflux disease (GERD) Medical History acute renal failure Medical History erectile dysfunction Medical History hyperlipidemia Medical History obesity Medical History skin cancer-basal cell R jewish (removed ) Medical History Arthritis Medical History degenerative disease [...] tunnel release (Left) 2000 Surgical History EGD ([facility]) 2009 Surgical History colonoscopy 2009 ([facility]), 2013 ([facility] ) Surgical History heart 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 04/2014 Surgical History carotid US 05/2014 Surgical History resection of skin cancer from Right temp le Surgical History Biopsy of Lung Bilateral/Left lung lymph node 09/2016 Surgical History Bone Marrow Biopsy Surgical History port in the right chest wall 12/2016 Surgical History right knee, meniscus repair 07/2018 Surgical History left knee meniscus repair 09/2018 Surgical History cancer removed from nose 10/2018 Hospitalization History [facility] low potassium, low magne sium, chest painina 01/2015 Hospitalization History inability to urinate 09/16/15 Hospitalization History [facility] ea [facility]ly 1999' Hospitalization History hyperkalemia 10/2017 Hospitalization History fluid in lung
--- OUTSIDE RECORDS SUMMARY | 2020-03-01 16:34 | XMS REPORT ---
Author Michele Murray Organization [facility] Address [address] [place] [address] Care Team Providers Care Microstrategy Architect Name Role Phone SP CARR Unavailable PROBLEMS Type Condition ICD9-CM Code [id number] Code Onset Dates Condition S tatus SNOMED Code Problem Leukocytosis D72.829 Active 2087681 06 Problem Bipolar I disorder, most recent episode (or curr ent) mixed, moderate F31.62 Active 63736626 Problem Reactive airway disease J45.909 Active 936857419215 Problem Anxiety F41.9 Active 96398872 Problem Insomnia, unspecified type G47.00 Act sharon 057275994 Problem Essential hypertension I10 Active 23285632 Problem Morbid obesity E66.01 Active 52837 6002 Problem Skin cancer C44.90 Active 24456714 7 Problem DM neuro manif type II E11.49 Active 21370123 Problem Mild cognitive impairment G31.84 Acti ve 817822276 Problem Benign prostatic hyperplasia with lower urinary tract symptoms, unspecified morphology N40.1 Active 83339 6007 Problem Chronic pain G89.29 Active 7107567 1 Problem Diabetes E11.9 Active 93086407 Problem Retinal edema H35.81 Active 071344 6 Problem Anemia of chronic illness D63.8 Acti ve 839229093 Problem Falling R29.6 Active 554772104 Problem Pressure ulcer of other site, stage 3 L89.893 Active 578423358 Problem 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 Active 700367307 Problem Eye exam abnormal R93.8 Active 16 8630817 Problem Pure hypercholesterolemia E78.00 Acti ve 133438796 Problem Dysuria R30.0 Active 45763289 Problem Bipolar disorder, in partial remission, most rec ent episode depressed F31.75 Active 63248238 Problem Hypokalemia E87.6 Active 18051060 Problem Other iron deficiency anemia D50.8 A ctive 83878769 Problem Eustachian tube dysfunction, unspecified laterality H69.80 Active 04546652 Problem Primary osteoarthritis of right knee M17.11 Active 181569769469010 Problem Cough R05 Active 96523492 Problem Bipolar disorder F31.9 Active 137 32786 Problem Chronic diastolic (congestive) heart failure I50.3 2 Active 133215946 Problem Psychophysiological insomnia F51.04 A ctive 495922117 Problem Gastroesophageal reflux disease without esophagitis K21.9 Active 170917406 Problem Polyneuropathy associated with underlying disease G63 Active 886741627 Problem Other secondary acute gout, 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 0 Active 455421924 Problem Diabetic polyneuropathy associated with type 2 d iabetes mellitus E11.42 Active 00930766 Problem Chronic lymphocytic leukemia C91.10 A ctive 60379428 Problem Bilateral primary osteoarthritis of knee M17.0 Active 396108319 Problem Type 2 diabetes mellitus with diabetic neuropathy, uns pecified E11.40 Active 92441278 Problem FCI (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 Z79.4 Active 435392122 Problem Lymphocytosis D72.820 Active 774147 09 Problem Mood disorder F39 Active 756200 05 Problem Bipolar I disorder, most recent episode depressed, moderat e F31.32 Active 012568602 ALLERGIES No Information ENCOUNTERS Encounter Location Date Diagnosis [facility] [address] [facility] [id number] [address] [place] [id number] Dec, [facility] [address] [facility] [id number] [address] [place] [phone] Dec, [facility] [address] [facility] [id number] [address] [place] [phone] Dec, [facility] [address] [id number] [address] [place] [phone] Dec, Mood disorder F39 [facility] [address] [id number] [address] [place] [id number] Nov, Other secondary acute gout, 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 [facility] [address] [facility] [id number] [address] [place] [phone] 25 Nov, 2019 Gastroesophageal reflux dise ase without esophagitis K21.9 [facility] [address] [facility] [id number] [address] [place] [phone] Nov, Chronic pain G89.29 [facility] [address] [id number] [address] [place] [phone] Nov, Bipolar I disorder, most rec ent episode depressed, moderate F31.32 ; Anxiety F41.9 and Mild cognitive impairment G31.84 [facility] [address] [id number] [address] [place] [phone] Nov, [facility] [address] [id number] [address] [place] [phone] Nov, Syncope, unspecified syncope type R55 [facility] [address] [id number] [address] [place] [phone] Nov, Mood disorder F39 [facility] [address] [id number] [address] [place] [id number] Oct, Chronic pain G89.29 [facility] [address] [id number] [address] [place] [phone] Oct, [facility] [address] [id number] [address] [place] [phone] Oct, Mood disorder F39 [facility] [address] [id number] [address] [place] [phone] Oct, [facility] [address] [id number] [address] [place] [phone] Oct, Bipolar disorder, in partial remission, most recent episode depressed F31.75 and Mild cognitive impairment G31.84 [facility] [address] [id number] [address] [place] [phone] Oct, Mood disorder F39 [facility] [address] [id number] [address] [place] [id number] Sep, [facility] [address] [id number] [address] [place] [phone] Sep, Mood disorder F39 [facility] [address] [id number] [address] [place] [id number] 13 Sep, 2019 Bipolar disorder, in partial remission, most recent episode depressed F31.75 and Mild cognitive impairment G31.84 [facility] [address] [id number] [address] [place] [phone] 06 Sep, 2019 Mood disorder F39 [facility] [address] [id number] [address] [place] [phone] Sep, [facility] [address] [id number] [address] [place] [phone] Sep, Mood disorder F39 [facility] [address] [id number] [address] [place] [phone] Sep, [facility] [address] [id number] [address] [place] [phone] Aug, Mood disorder F39 [facility] [address] [id number] [address] [place] [phone] Aug, [facility] [address] [id number] [address] [place] [phone] Aug, [facility] [address] [id number] [address] [place] [phone] Aug, [facility] [address] [id number] [address] [place] [id number] Aug, [facility] [address] [id number] [address] [place] [phone] Aug, [facility] [address] [id number] [address] [place] [phone] Aug, [facility] [address] [id number] [address] [place] [phone] Aug, [facility] [address] [id number] [address] [place] [phone] Aug, Essential hypertension I10 [facility] [address] [id number] [address] [place] [phone] Aug, Bipolar disorder, in partial remission, most recent episode depressed F31.75 and Mild cognitive impairment G31.84 [facility] [address] [id number] [address] [place] [phone] Aug, Mood disorder F39 [facility] [address] [id number] [address] [place] [phone] Aug, [facility] [address] [id number] [address] [place] [phone] Aug, Bipolar disorder, in partial remission, most recent episode depressed F31.75 and Mild cognitive impairment G31.84 [facility] [address] [id number] [address] [place] [phone] Jul, Bipolar disorder, in partial remission, most recent episode depressed F31.75 and Mild cognitive impairment G31.84 [facility] [address] [id number] [address] [place] [phone] Jul, Psychophysiological insomnia F51.04 [facility] [address] [id number] [address] [place] [id number] Jul, [facility] [address] [id number] [address] [place] [phone] Jul, [facility] [address] [id number] [address] [place] [phone] Jul, [facility] [address] [id number] [address] [place] [phone] Jul, [facility] [address] [id number] [address] [place] [id number] Jul, [facility] [address] [id number] [address] [place] [phone] Jul, [facility] [address] [id number] [address] [place] [phone] Jul, Bipolar disorder, in partial remission, most recent episode depressed F31.75 and Mild cognitive impairment G31.84 [place] [address] [facility] [id number] [address] [place] [address] Jul, Chronic pain G89.29 ; Diabet es E11.9 ; Essential hypertension I10 ; Ill feeling R68.89 ; Local infection of the skin and subcutaneous tissue, unspecified L08.9 and Other injury of unspecified body region, initial encounter T14.8XXA [place] [address] [facility] [id number] [address] [place] [phone] Jun, Bipolar disorder, in partial remission, most recent episode depressed F31.75 and Mild cognitive impairment G31.84 [place] [address] [facility] [id number] [address] [place] [phone] Jun, [place] [address] [place] [id number] [address] [place] [phone] Jun, Bipolar disorder, in partial remission, most recent episode depressed F31.75 and Mild cognitive impairment G31.84 [place] [address] [place] [id number] [address] [place] [phone] Jun, Psychophysiological insomnia F51.04 [place] [address] [place] [id number] [address] [place] [phone] Jun, Psychophysiological insomnia F51.04 ; Chronic pain G89.29 ; Bipolar I disorder, most recent episode (or current) mixed, moderate F31.62 ; 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 ; Polyneuropathy associated with underlying disease G63 ; Type 2 diabetes mellitus with diabetic neuropathy, unspecified E11.40 ; FCI (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 Z79.4 and Hyperglycemia R73.9 [place] [address] [place] [id number] [address] [place] [phone] Jun, Bipolar disorder, in partial remission, most recent episode depressed F31.75 and Mild cognitive impairment G31.84 [place] [address] [place] [id number] [address] [place] [phone] Jun, [place] [address] [place] [id number] [address] [place] [phone] Jun, Bipolar disorder F31.9 [facility] [address] [id number] [address] [place] [id number] May, Bipolar disorder, in partial remission, most recent episode depressed F31.75 and Mild cognitive impairment G31.84 [facility] [address] [id number] [address] [place] [phone] May, [facility] [address] [id number] [address] [place] [id number] Apr, Chronic pain G89.29 and Bipo lar disorder F31.9 [facility] [address] [id number] [address] [place] [phone] Mar, Bipolar disorder F31.9 and C hronic pain G89.29 [facility] [address] [facility] [id number] [address] [place] [id number] Feb, Bipolar disorder F31.9 [facility] [address] [id number] [address] [place] [phone] Feb, Cellulitis of right upper ex tremity L03.113 and Skin abrasion T14.8XXA [facility] [address] [id number] [address] [place] [id number] Feb, Bipolar disorder, in partial remission, most recent episode depressed F31.75 and Mild cognitive impairment G31.84 [facility] [address] [facility] [id number] [address] [place] [phone] Feb, Chronic pain G89.29 [facility] [address] [id number] [address] [place] [phone] Feb, Bipolar disorder, in partial remission, most recent episode depressed F31.75 and Mild cognitive impairment G31.84 [facility] [address] [id number] [address] [place] [phone] January, Bipolar disorder, in partial remission, most recent episode depressed F31.75 and Mild cognitive impairment G31.84 [facility] [address] [id number] [address] [place] [id number] January, Chronic pain G89.29 and Bipo lar disorder F31.9 [facility] [address] [id number] [address] [place] [id number] January, Bipolar disorder, in partial remission, most recent episode depressed F31.75 and Mild cognitive impairment G31.84 [facility] [address] [id number] [address] [place] [phone] Dec, [facility] [address] [id number] [address] [place] [phone] Dec, Chronic pain G89.29 and Bipo lar disorder F31.9 [facility] [address] [id number] [address] [place] [phone] Dec, Edema of both lower extremit ies R60.0 [facility] [address] [id number] [address] [place] [phone] Dec, Bipolar disorder F31.9 [facility] [address] [id number] [address] [place] [phone] Dec, Bipolar disorder, in partial remission, most recent episode depressed F31.75 and Mild cognitive impairment G31.84 [facility] [address] [id number] [address] [place] [phone] Nov, [facility] [address] [id number] [address] [place] [phone] Nov, Chronic pain G89.29 [facility] [address] [id number] [address] [place] [phone] Nov, Bipolar disorder, in partial remission, most recent episode depressed F31.75 and Mild cognitive impairment G31.84 [facility] [address] [id number] [address] [place] [phone] Nov, Bipolar disorder F31.9 [facility] [address] [id number] [address] [place] [phone] 04 Nov, 2018 Encounter for Medicare annua [...] unspecified morphology N40.1 and Essential hypertension I10 [place] [address] [id number] 21 Oct, 2018 Chronic pain G89.29 [place] [address] [id number] 18 Oct, 2018 Diabetes E11.9 [place] [address] [id number] Oct, Bipolar I disorder, most rec ent episode (or current) mixed, moderate F31.62 and Mild cognitive impairment G31.84 [place] [address] [place] [id number] [address] [place] [phone] 06 Oct, 2018 Bipolar I disorder, most rec ent episode (or current) mixed, moderate F31.62 and Mild cognitive impairment G31.84 [place] [address] [id number] Sep, Bipolar I disorder, most rec ent episode (or current) mixed, moderate F31.62 and Mild cognitive impairment G31.84 [place] [address] [place] [id number] [address] [place] [phone] Sep, [address] [address] Sep, Diabetes E11.9 ; Hypoxia R09 .02 ; Hyperglycemia R73.9 ; Therapeutic drug monitoring Z51.81 ; BMI 50.0-59.9, adult Z68.43 and Skin cancer C44.90 [facility] [address] [id number] [address] [place] [phone] Sep, Chronic pain G89.29 [facility] [address] [id number] [address] [place] [phone] Sep, Bipolar I disorder, most rec ent episode (or current) mixed, moderate F31.62 [facility] [address] [id number] [address] [place] [phone] Sep, [facility] [address] [id number] [address] [place] [phone] Sep, [facility] [address] [id number] [address] [place] [phone] Aug, Chronic pain G89.29 [facility] [address] [id number] [address] [place] [id number] Aug, Bipolar I disorder, most rec ent episode (or current) mixed, moderate F31.62 [place] [id number] [id number] [address] [place] [address] Aug, Bipolar I disorder, most rec ent episode (or current) mixed, moderate F31.62 and Mild cognitive impairment G31.84 [place] [address] [id number] [address] [place] [phone] Jul, [place] [address] [id number] [address] [place] [address] Jul, Chronic pain G89.29 [facility] [address] [id number] [address] [place] [phone] Jul, Bipolar I disorder, most rec ent episode (or current) mixed, moderate F31.62 and Mild cognitive impairment G31.84 [facility] [address] [id number] [address] [place] [phone] Jul, Bipolar I disorder, most rec ent episode (or current) mixed, moderate F31.62 and MCI (mild cognitive impairment) G31.84 [place] [address] [id number] [address] [place] [phone] Jul, [facility] [address] [id number] [address] [place] [phone] Jul, [facility] [address] [id number] [address] [place] [phone] Jul, Bipolar I disorder, most rec ent episode (or current) mixed, moderate F31.62 [facility] [address] [id number] [address] [place] [phone] Jul, Chronic pain G89.29 [facility] [address] [id number] [address] [place] [phone] Jun, Bipolar I disorder, most rec ent episode (or current) mixed, moderate F31.62 [facility] [address] [facility] [id number] [address] [place] [phone] Jun, Pre-procedure lab exam Z01.8 12 [facility] [address] [id number] [address] [place] [phone] Jun, [facility] [address] [id number] [place] [id number] Jun, [facility] [address] [facility] [id number] [address] [place] [phone] Jun, [facility] [address] [facility] [id number] [address] [place] [address] Jun, Forgetfulness R68.89 ; Pre-s yncope R55 ; Localized edema R60.0 ; Other iron deficiency anemia D50.8 and BMI 50.0-59.9, adult Z68.43 [facility] [address] [id number] [address] [place] [phone] Jun, Chronic pain G89.29 [facility] [address] [id number] [address] [place] [address] Jun, Chronic pain G89.29 [facility] [address] [id number] Jun, Bipolar I disorder, most rec ent episode (or current) mixed, moderate F31.62 [place] [address] [address] May, Chronic pain G89.29 [place] [address] [address] Apr, [place] [address] [address] Apr, Chronic pain G89.29 [place] [address] [address] Apr, Primary osteoarthritis of ri ght knee M17.11 [place] [address] [address] Mar, [place] [address] [address] Mar, BMI 50.0-59.9, adult Z68.43 and Bipolar disorder, in partial remission, most recent episode depressed F31.75 [place] [address] [address] Mar, Diabetes E11.9 ; Pure hyperc holesterolemia E78.00 ; Essential hypertension I10 ; Nausea with vomiting, unspecified R11.2 and Headache, unspecified headache type R51 [place] [address] [address] Mar, Bipolar I disorder, most rec ent episode (or current) mixed, moderate F31.62 [place] [address] [address] Mar, Bipolar I disorder, most rec ent episode (or current) mixed, moderate F31.62 [place] [address] [address] Mar, Chronic pain G89.29 [place] [address] [facility] [id number] [address] [place] [phone] Mar, Bipolar I disorder, most rec ent episode (or current) mixed, moderate F31.62 [facility] [address] [facility] [id number] [address] [place] [phone] Feb, Bipolar I disorder, most rec ent episode (or current) mixed, moderate F31.62 [facility] [address] [facility] [id number] [address] [place] [phone] Feb, Chronic pain G89.29 [facility] [address] [facility] [id number] [address] [place] [address] Feb, Decubitus ulcer of right josselin t, stage 3 L89.893 and BMI 50.0-59.9, adult Z68.43 [place] [address] [facility] [id number] [address] [place] [phone] Feb, Bipolar I disorder, most rec ent episode (or current) mixed, moderate F31.62 [place] [id number] [facility] [id number] [address] [place] [phone] Feb, [place] [address] [facility] [id number] [address] [place] [phone] January, [facility] [address] [facility] [id number] [address] [place] [phone] January, Chronic pain G89.29 [facility] [address] [facility] [id number] [address] [place] [phone] January, Bipolar I disorder, most rec ent episode (or current) mixed, moderate F31.62 [facility] [address] [facility] [id number] [address] [place] [phone] January, Bipolar I disorder, most rec ent episode (or current) mixed, moderate F31.62 [facility] [address] [facility] [id number] [address] [place] [phone] Dec, Bipolar I disorder, most rec ent episode (or current) mixed, moderate F31.62 and BMI 50.0-59.9, adult Z68.43 [facility] [address] [place] [id number] [address] [place] [phone] Dec, Bipolar I disorder, most rec ent episode (or current) mixed, moderate F31.62 [place] [address] [place] [id number] [address] [place] [phone] Dec, Chronic pain G89.29 [place] [address] [address] [place] [id number] [address] [place] [phone] Dec, DM neuro manif type II E11.4 9 ; Right flank pain R10.9 ; 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 Z79.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 ; Encounter for medication monitoring Z51.81 and BMI 50.0-59.9, adult Z68.43 [place] [address] [place] [id number] [address] [place] [phone] Dec, Bipolar I disorder, most rec ent episode (or current) mixed, moderate F31.62 [place] [address] [place] [id number] [address] [place] [phone] Nov, Bipolar I disorder, most rec ent episode (or current) mixed, moderate F31.62 [place] [address] [place] [id number] [address] [place] [phone] Nov, Chronic pain G89.29 [place] [address] [place] [id number] [address] [place] [phone] Nov, Bipolar I disorder, most rec ent episode (or current) mixed, moderate F31.62 [place] [address] [place] [id number] [address] [place] [phone] Nov, Hypokalemia E87.6 [place] [address] [place] [id number] [address] [place] [phone] Nov, Bipolar I disorder, most rec ent episode (or current) mixed, moderate F31.62 [place] [address] [place] [id number] [address] [place] [phone] Oct, Chronic pain G89.29 [facility] [address] [facility] [id number] [address] [place] [phone] Oct, BMI 50.0-59.9, adult Z68.43 and Bipolar I disorder, most recent episode (or current) mixed, moderate F31.62 [facility] [address] [facility] [id number] [address] [place] [phone] Oct, Bipolar I disorder, most rec ent episode (or current) mixed, moderate F31.62 [facility] [address] [facility] [id number] [address] [place] [phone] Oct, [facility] [address] [facility] [id number] [address] [place] [phone] Oct, Hypokalemia E87.6 [facility] [address] [place] [id number] [address] [place] [phone] Oct, DM neuro manif type II E11.4 9 [facility] [address] [facility] [id number] [address] [place] [phone] Oct, Bipolar I disorder, most rec ent episode (or current) mixed, moderate F31.62 [facility] [address] [facility] [id number] [address] [place] [phone] Oct, Bipolar I disorder, most rec ent episode (or current) mixed, moderate F31.62 [facility] [address] [facility] [id number] [address] [place] [phone] Oct, Hyperkalemia E87.5 ; Falling R29.6 ; BMI 50.0-59.9, adult Z68.43 and Acute left ankle pain M25.572 [facility] [address] [facility] [id number] [address] [place] [phone] Oct, DM neuro manif type II E11.4 9 [facility] [address] [facility] [id number] [address] [place] [phone] Oct, [facility] [address] [address] Sep, Chronic pain G89.29 [place] [address] [address] Sep, [place] [address] [address] Sep, Bilateral primary osteoarthr itis of knee M17.0 [place] [address] [address] Sep, Generalized edema R60.1 [place] [address] [address] Sep, Bipolar I disorder, most rec ent episode (or current) mixed, moderate F31.62 [place] [address] [address] Sep, Hypoxia R09.02 ; Other hyper volemia E87.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 ; Anemia of chronic illness D63.8 and BMI 50.0- 59.9, adult Z68.43 [place] [address] [address] Sep, [place] [address] [address] Sep, Bipolar I disorder, most rec ent episode (or current) mixed, moderate F31.62 [place] [address] [place] [id number] [place] [address] Aug, Chronic pain G89.29 [place] [address] [place] [id number] [place] [phone] Aug, Generalized edema R60.1 [place] [address] [address] Aug, [facility] [address] [place] [id number] [address] [place] [phone] Aug, [place] [address] [place] [id number] [address] [place] [phone] Aug, Bipolar I disorder, most rec ent episode (or current) mixed, moderate F31.62 [place] [address] [place] [id number] [address] [place] [phone] Aug, Bipolar I disorder, most rec ent episode (or current) mixed, moderate F31.62 [place] [address] [place] [id number] [address] [place] [phone] Aug, Chronic pain G89.29 [place] [address] [place] [id number] [place] [phone] Jul, Bipolar I disorder, most rec ent episode (or current) mixed, moderate F31.62 [place] [address] [place] [id number] [place] [phone] Jul, Bipolar I disorder, most rec ent episode (or current) mixed, moderate F31.62 and BMI 60.0-69.9, adult Z68.44 [place] [id number] [place] [phone] 16 Jul, 2017 Bipolar I disorder, most rec ent episode (or current) mixed, moderate F31.62 [place] [address] [place] [id number] [address] [place] [phone] Jul, Chronic pain G89.29 [place] [address] [place] [id number] [address] [place] [phone] 02 Jul, 2017 Bipolar I disorder, most rec ent episode (or current) mixed, moderate F31.62 [place] [address] [place] [id number] [address] [place] [phone] 18 Jun, 2017 Polyneuropathy associated wi th underlying disease G63 and Diabetes E11.9 [place] [address] [place] [id number] [address] [place] [phone] Jun, Bipolar I disorder, most rec ent episode (or current) mixed, moderate F31.62 [facility] [address] [id number] [address] [place] [phone] 09 Jun, 2017 Chronic pain G89.29 [facility] [address] [id number] [address] [place] [phone] May, Bipolar I disorder, most rec ent episode (or current) mixed, moderate F31.62 [facility] [address] [id number] [address] [place] [phone] May, Bipolar I disorder, most rec ent episode (or current) mixed, moderate F31.62 [facility] [address] [facility] [id number] [address] [place] [phone] May, Diabetic polyneuropathy asso ciated with type 2 diabetes mellitus E11.42 [facility] [address] [id number] [address] [place] [phone] May, Bipolar I disorder, most rec ent episode (or current) mixed, moderate F31.62 [facility] [address] [id number] [address] [place] [phone] May, Bipolar I disorder, most rec ent episode (or current) mixed, moderate F31.62 [facility] [address] [facility] [id number] [address] [place] [phone] May, Chronic pain G89.29 [facility] [address] [id number] [address] [place] [phone] Apr, Bipolar I disorder, most rec ent episode (or current) mixed, moderate F31.62 [facility] [address] [facility] [id number] [address] [place] [phone] Apr, [facility] [address] [id number] [address] [place] [phone] Apr, Chronic pain G89.29 and DM n euro manif type II E11.49 [facility] [address] [id number] [address] [place] [phone] Apr, [facility] [address] [id number] [address] [place] [phone] Apr, Bipolar I disorder, most rec ent episode (or current) mixed, moderate F31.62 [facility] [address] [facility] [id number] [address] [place] [phone] Apr, Chronic pain G89.29 [facility] [address] [id number] [address] [place] [phone] Apr, Iliotibial band syndrome, le ft M76.32 [facility] [address] [facility] [id number] [address] [place] [phone] Apr, Bipolar I disorder, most rec ent episode (or current) mixed, moderate F31.62 [facility] [address] [facility] [id number] [address] [place] [phone] Mar, Bipolar I disorder, most rec ent episode (or current) mixed, moderate F31.62 [facility] [address] [id number] [address] [place] [phone] Mar, Bipolar I disorder, most rec ent episode (or current) mixed, moderate F31.62 [facility] [address] [facility] [id number] [address] [place] [phone] Mar, [facility] [address] [facility] [id number] [address] [place] [phone] Mar, Bipolar I disorder, most rec ent episode (or current) mixed, moderate F31.62 [facility] [address] [id number] [address] [place] [phone] Mar, Chronic pain G89.29 [facility] [address] [facility] [id number] [address] [place] [phone] Mar, Bipolar I disorder, most rec ent episode (or current) mixed, moderate F31.62 [facility] [address] [facility] [id number] [address] [place] [phone] Mar, Bipolar I disorder, most rec ent episode (or current) mixed, moderate F31.62 [facility] [address] [facility] [id number] [address] [place] [phone] Mar, Acute pain of left knee M25. 562 ; Left hip pain M25.552 ; Generalized edema R60.1 and Tongue swelling R22.0 [facility] [address] [facility] [id number] [address] [place] [phone] Mar, [facility] [address] [facility] [id number] [address] [place] [phone] Feb, Chronic pain G89.29 [place] [address] [facility] [id number] [address] [place] [phone] Feb, Diabetes E11.9 [place] [address] [place] [id number] [address] [place] [phone] January, Chronic pain G89.29 [facility] [address] [facility] [id number] [address] [place] [phone] January, [facility] [address] [facility] [id number] [address] [place] [phone] January, Bipolar I disorder, most rec ent episode (or current) mixed, moderate F31.62 [place] [id number] [facility] [id number] [address] [place] [phone] Dec, Bipolar I disorder, most rec ent episode (or current) mixed, moderate F31.62 [facility] [address] [facility] [id number] [address] [place] [phone] Dec, Chronic pain G89.29 [facility] [address] [facility] [id number] [address] [place] [phone] Dec, Bipolar I disorder, most rec ent episode (or current) mixed, moderate F31.62 [facility] [address] [facility] [id number] [address] [place] [phone] Dec, Diabetes E11.9 ; Essential h ypertension I10 ; Chronic pain G89.29 and Morbid obesity E66.01 [facility] [address] [id number] [address] [place] [phone] Dec, [facility] [address] [id number] [address] [place] [phone] Dec, Bipolar I disorder, most rec ent episode (or current) mixed, moderate F31.62 [facility] [address] [id number] [address] [place] [phone] Dec, Bipolar I disorder, most rec ent episode (or current) mixed, moderate F31.62 [facility] [address] [id number] [address] [place] [phone] Nov, Chronic pain G89.29 [facility] [address] [facility] [id number] [address] [place] [phone] Nov, Bipolar I disorder, most rec ent episode (or current) mixed, moderate F31.62 [facility] [address] [id number] [address] [place] [phone] Nov, [facility] [address] [id number] [address] [place] [phone] Nov, Bipolar I disorder, most rec ent episode (or current) mixed, moderate F31.62 [facility] [address] [facility] [id number] [address] [place] [phone] Nov, Bipolar I disorder, most rec ent episode (or current) mixed, moderate F31.62 [facility] [address] [id number] [address] [place] [id number] Nov, [facility] [address] [facility] [id number] [address] [place] [phone] Nov, [facility] [address] [facility] [id number] [address] [place] [phone] Nov, [facility] [address] [facility] [id number] [address] [place] [phone] Oct, Chronic pain G89.29 [facility] [address] [facility] [id number] [address] [place] [phone] Oct, Bipolar I disorder, most rec ent episode (or current) mixed, moderate F31.62 [facility] [address] [facility] [id number] [address] [place] [phone] Oct, [facility] [address] [facility] [id number] [address] [place] [address] Oct, Chronic pain G89.29 ; Diabet es E11.9 ; Anxiety F41.9 and 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 [facility] [address] [facility] [id number] [address] [place] [phone] Oct, [facility] [address] [place] [id number] [address] [place] [phone] Oct, Diabetes E11.9 [facility] [address] [facility] [id number] [address] [place] [phone] Oct, Bipolar I disorder, most rec ent episode (or current) mixed, moderate F31.62 [facility] [address] [facility] [id number] [address] [place] [id number] Sep, Chronic pain G89.29 [facility] [address] [place] [id number] [address] [place] [phone] Sep, Chronic pain G89.29 [facility] [address] [facility] [id number] [address] [place] [phone] Aug, Chronic pain G89.29 [facility] [address] [facility] [id number] [address] [place] [phone] Jul, [facility] [address] [place] [id number] [address] [place] [phone] Jul, Diabetes E11.9 [facility] [address] [facility] [id number] [address] [place] [phone] 09 Nov, 2016 Chronic pain G89.29 [facility] [address] [facility] [id number] [address] [place] [phone] Jul, Bipolar I disorder, most rec ent episode (or current) mixed, moderate F31.62 [facility] [address] [facility] [id number] [address] [place] [id number] Jun, Bipolar I disorder, most rec ent episode (or current) mixed, moderate F31.62 [facility] [address] [facility] [id number] [address] [place] [phone] Jun, [facility] [address] [facility] [id number] [address] [place] [phone] Jun, Bipolar I disorder, most rec ent episode (or current) mixed, moderate F31.62 [facility] [address] [facility] [id number] [address] [place] [phone] 30 May, 2016 Insomnia, unspecified type G 47.00 [facility] [address] [facility] [id number] [address] [place] [phone] May, Bipolar I disorder, most rec ent episode (or current) mixed, moderate F31.62 [facility] [address] [facility] [id number] [address] [place] [phone] 14 May, 2016 [facility] [address] [facility] [id number] [address] [place] [phone] 08 May, 2016 Bipolar I disorder, most rec ent episode (or current) mixed, moderate F31.62 [facility] [address] [facility] [id number] [address] [place] [phone] 06 May, 2016 Diabetes E11.9 and Essential hypertension I10 [facility] [address] [facility] [id number] [address] [place] [phone] 17 Apr, 2016 Chronic pain G89.29 [facility] [address] [facility] [id number] [address] [place] [phone] Apr, Bipolar I disorder, most rec ent episode (or current) mixed, moderate F31.62 [facility] [address] [place] [id number] [address] [place] [phone] Apr, [place] [address] [place] [id number] [address] [place] [phone] Apr, [place] [address] [place] [id number] [address] [place] [phone] Mar, Chronic pain G89.29 ; Headac he, unspecified headache type R51 ; Neuropathy G62.9 ; Pain of right hip joint M25.551 and Essential hypertension I10 [place] [address] [place] [id number] [address] [place] [phone] Mar, Chronic pain G89.29 [place] [address] [place] [id number] [address] [place] [phone] Mar, Bipolar I disorder, most rec ent episode (or current) mixed, moderate F31.62 [place] [address] [address] Feb, Bipolar I disorder, most rec ent episode (or current) mixed, moderate F31.62 and Insomnia, unspecified type G47.00 [place] [address] [place] [id number] [address] [place] [phone] Feb, Chronic pain G89.29 [place] [address] [place] [id number] [address] [place] [phone] Feb, Bipolar I disorder, most rec ent episode (or current) mixed, moderate F31.62 [place] [address] [place] [id number] [address] [place] [phone] January, Bipolar I disorder, most rec ent episode (or current) mixed, moderate F31.62 [place] [address] [place] [id number] [address] [place] [phone] January, Chronic pain G89.29 [place] [address] [place] [id number] [address] [place] [phone] January, Chronic pain G89.29 and Esse ntial hypertension I10 [facility] [address] [place] [id number] [address] [place] [phone] January, Bipolar I disorder, most rec ent episode (or current) mixed, moderate F31.62 [facility] [address] [facility] [id number] [address] [place] [phone] Dec, [facility] [address] [place] [id number] [address] [place] [phone] Dec, [facility] [address] [place] [id number] [address] [place] [phone] Dec, [facility] [address] [address] Dec, [facility] [address] [place] [id number] [place] [phone] Nov, Reactive airway disease J45. 909 [facility] [address] [id number] Nov, [facility] [address] [place] [id number] [address] [place] [phone] Nov, [facility] [address] [phone] Nov, [facility] [address] [place] [id number] [address] [place] [phone] Nov, [facility] [address] [place] [id number] [address] [place] [phone] Nov, Onychomycosis B35.1 ; Hammer toe M20.40 ; [place] or callus L84 and DM neuro manif type II E11.49 [facility] [address] [address] Nov, Chronic pain G89.29 ; Leukoc ytosis D72.829 and Diabetes E11.9 [facility] [address] [place] [id number] [address] [place] [phone] Nov, [place] [address] [id number] Oct, Bronchitis J40 [facility] [address] [id number] Oct, [facility] [address] [address] Oct, [facility] [address] [id number] Oct, Mastoiditis, unspecified lat erality H70.90 and Type 2 diabetes mellitus with complication E11.8 [place] [address] [address] Sep, [place] [address] [address] Sep, Dysuria R30.0 ; Cough R05 ; Benign prostatic hyperplasia with lower urinary tract symptoms, unspecified morphology N40.1 ; Hypokalemia E87.6 and Eustachian tube dysfunction, unspecified laterality H69.80 [place] [address] [address] Sep, Moderate mixed bipolar I dis order F31.62 [place] [address] [address] Sep, Hypokalemia E87.6 [place] [address] [address] Sep, [place] [address] [address] Sep, Upper respiratory tract infe ction, unspecified type J06.9 [facility] [address] [place] [id number] [address] [place] [id number] Aug, [place] [address] [address] Aug, Dysuria R30.0 [facility] [address] [id number] [address] [place] [phone] Aug, [facility] [address] [id number] [address] [place] [id number] Jul, [facility] [address] [id number] [address] [place] [id number] Jul, [facility] [address] [id number] [address] [place] [id number] Jul, [facility] [address] [id number] [address] [place] [id number] Jul, [facility] [address] [id number] [address] [place] [id number] Jun, [facility] [address] [id number] [address] [place] [phone] Jun, [facility] [address] [id number] [address] [place] [phone] Jun, [facility] [address] [id number] [address] [place] [id number] May, [facility] [address] [id number] [address] [place] [id number] May, Bipolar I disorder, most rec ent episode (or current) mixed, moderate 296.62 [facility] [address] [id number] [address] [place] [id number] 16 May, 2015 [facility] [address] [id number] [address] [place] [id number] May, Bipolar I disorder, most rec ent episode (or current) mixed, moderate 296.62 and Major depressive disorder, recurrent episode, severe, specified as with psychotic behavior 296.34 [facility] [address] [id number] [address] [place] [address] May, Bipolar I disorder, most rec ent episode (or current) mixed, moderate 296.62 [facility] [address] [id number] [address] [place] [address] May, [facility] [address] [id number] [address] [place] [address] Apr, [facility] [address] [id number] [address] [place] [id number] Apr, [facility] [address] [id number] [address] [place] [address] Apr, Unspecified disorder of kidn ey and ureter 593.9 and Diabetes mellitus type 2, uncontrolled 250.02 [facility] [address] [id number] [address] [place] [address] Apr, [facility] [address] [id number] [address] [place] [address] Apr, [facility] [address] [id number] [address] [place] [address] Apr, [facility] [address] [id number] [address] [place] [address] Apr, [facility] [address] [id number] [address] [place] [address] Apr, Diabetes mellitus type II, u ncontrolled 250.02 [facility] [address] [id number] [address] [place] [address] Apr, [facility] [address] [id number] [address] [place] [address] Mar, [facility] [address] [id number] [address] [place] [address] Mar, [facility] [address] [id number] [address] [place] [address] Mar, [facility] [address] [facility] [id number] [address] [place] [address] Mar, Major depressive disorder, r ecurrent episode, severe, specified as with psychotic behavior 296.34 and Bipolar I disorder, most recent episode (or current) mixed, moderate 296.62 [facility] [address] [facility] [id number] [address] [place] [address] Mar, Diabetes 250.00 ; Anuria 788 .5 ; Nausea and vomiting 787.01 and Diarrhea 787.91 [facility] [address] [facility] [id number] [address] [place] [address] Mar, Diabetes 250.00 [facility] [address] [place] [id number] [address] [place] [address] Mar, [facility] [address] [place] [id number] [address] [place] [address] Mar, Diabetes 250.00 [facility] [address] [place] [id number] [address] [place] [address] Mar, [facility] [address] [place] [id number] [address] [place] [address] Mar, [facility] [address] [place] [id number] [address] [place] [address] Mar, [facility] [address] [place] [id number] [address] [place] [address] Mar, [facility] [address] [place] [id number] [address] [place] [address] Mar, Bipolar I disorder, most rec ent episode (or current) mixed, moderate 296.62 and Major depressive disorder, recurrent episode, severe, specified as with psychotic behavior 296.34 [facility] [address] [place] [id number] [address] [place] [address] Mar, Magnesium deficiency 275.2 ; Hypokalemia 276.8 ; Nausea & vomiting 787.01 and Diabetes mellitus type 2, uncontrolled 250.02 [facility] [address] [place] [id number] [address] [place] [address] Feb, [facility] [address] [place] [id number] [address] [place] [address] Feb, Bipolar I disorder, most rec ent episode (or current) mixed, moderate 296.62 [facility] [address] [address] Feb, Nausea and vomiting 787.01 ; Left elbow pain 719.42 ; Anuria 788.5 and Diabetes 250.00 [place] [address] [address] Feb, [place] [address] [address] Feb, Hypopotassemia 276.8 and Hyp okalemia 276.8 [place] [address] Feb, Hypopotassemia 276.8 and Hyp okalemia 276.8 [place] [address] [address] Feb, Seborrheic keratoses 702.19 [place] [address] [address] Feb, Hypopotassemia 276.8 and Low magnesium levels 275.2 [place] [address] [address] January, [place] [address] [address] January, [place] [address] [address] January, [place] [address] [place] [id number] [address] [place] [address] January, Scalp lesion 709.9 [place] [address] [address] January, [place] [address] [place] [id number] [place] [address] Dec, Tear of medial cartilage or meniscus of knee, current 836.0 and 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 [facility] [address] [id number] [address] [place] [address], [place] [address] Dec, [facility] [address] [id number] [address] [place] [address], [place] [address] 29 Dec, 2014 [facility] [address] [id number] [address] [place] [address], [place] [address] 28 Dec, 2014 Squamous cell carcinoma, 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 [facility] [address] [id number] [address] [place] [address], [place] [address] 14 Dec, 2014 [facility] [address] [id number] [address] [place] [address], [place] [address] 13 Dec, 2014 [facility] [address] [id number] [address] [place] [address], [place] [address] Nov, [facility] [address] [id number] [address] [place] [address], [place] [address] Nov, [facility] [address] [id number] [address] [place] [address], [place] [address] Nov, [facility] [address] [id number] [address] [place] [address], [place] [address] Nov, [facility] [address] [id number] [address] [place] [address], [place] [address] Nov, [facility] [address] [id number] [address] [place] [address], [place] [address] Nov, [facility] [address] [id number] [address] [place] [address], [place] [address] Nov, [facility] [address] [id number] [address] [place] [address], [place] [address] Nov, [facility] [address] [id number] [address] [place] [address], [place] [address] Nov, [facility] [address] [id number] [address] [place] [address], [place] [address] Nov, [facility] [address] [id number] [address] [place] [address], [place] [address] Nov, [facility] [address] [id number] [address] [place] [address], [place] [address] Nov, [facility] [address] [id number] [address] [place] [address], [place] [address] Oct, 2014 [facility] [address] [id number] [address] [place] [address], [place] [address] Oct, 2014 [facility] [address] [id number] [address] [place] [address], [place] [address] Oct, 2014 [facility] [address] [id number] [address] [place] [address], [place] [address] Oct, 2014 [facility] [address] [id number] [address] [place] [address], [place] [address] Oct, 2014 [facility] [address] [id number] [address] [place] [address], [place] [address] Oct, 2014 [facility] [address] [id number] [address] [place] [address], [place] [address] Oct, [facility] [address] [id number] [address] [place] [address], [place] [address] Oct, [facility] [address] [id number] [address] [place] [address] Oct, [facility] [address] [id number] [address] [place] [address] Sep, [facility] [address] [id number] [address] [place] [address] Sep, [facility] [address] [id number] [address] [place] [address] Sep, [facility] [address] [id number] [address] [place] [address] Sep, [facility] [address] [id number] [address] [place] [address] Sep, [facility] [address] [id number] [address] [place] [address], [place] [address] Sep, [facility] [address] [id number] [address] [place] [address], [place] [address] Sep, [facility] [address] [id number] [address] [place] [address], [place] [address] Sep, [facility] [address] [id number] [address] [place] [address], [place] [address] Sep, [facility] [address] [id number] [address] [place] [address], [place] [address] Sep, [facility] [address] [id number] [address] [place] [address], [place] [address] Sep, [facility] [address] [id number] [address] [place] [address], [place] [address] Sep, [facility] [address] [id number] [address] [place] [address], [place] [address] Sep, [facility] [address] [id number] [address] [place] [address], [place] [address] Sep, [facility] [address] [id number] [address] [place] [address], [place] [address] Sep, [facility] [address] [id number] [address] [place] [address], [place] [address] Sep, [facility] [address] [id number] [address] [place] [address], [place] [address] Aug, [facility] [address] [id number] [address] [place] [address], [place] [address] Aug, [facility] [address] [id number] [address] [place] [address], [place] [address] Aug, [facility] [address] [id number] [address] [place] [address], [place] [address] Aug, [facility] [address] [id number] [facility] [place] [address] Aug, [facility] [address] [id number] [facility] [place] [address] Aug, [facility] [address] [id number] [facility] [place] [place] [address] Aug, [facility] [address] [id number] [facility] [place] [address] Aug, [facility] [address] [id number] [facility] [place] [address] Aug, [facility] [address] [id number] [facility] [place] [address] Aug, [facility] [address] [id number] [address] [place] [address], [place] [address] Aug, [facility] [address] [place] [id number] Aug, [facility] [address] [id number] [address] [place] [address], [place] [address] Aug, [facility] [address] [id number] [address] [place] [address], [place] [address] Aug, [facility] [address] [id number] [address] [place] [address], [place] [address] Aug, [facility] [address] [id number] [address] [place] [address], [place] [address] Aug, [facility] [address] [id number] [address] [place] [address], [place] [address] Aug, [facility] [address] [id number] [facility] [place] [place] [address] Aug, [facility] [address] [id number] [facility] [place] [address] Aug, [facility] [address] [id number] [address] [place] [address], [place] [address] Aug, [facility] [address] [id number] [address] [place] [address], [place] [address] Aug, [facility] [address] [id number] [address] [place] [address], [place] [address] Aug, [facility] [address] [id number] [address] [place] [address], [place] [address] Aug, [facility] [address] [id number] [address] [place] [address], [place] [address] Aug, [facility] [address] [id number] [address] [place] [address], [place] [address] Aug, [facility] [address] [id number] [address] [place] [address], [place] [address] Aug, [facility] [address] [id number] [address] [place] [address], [place] [address] Aug, [facility] [address] [id number] [address] [place] [address], [place] [address] Aug, [facility] [address] [id number] [address] [place] [address], [place] [address] Aug, [facility] [address] [id number] [address] [place] [address], [place] [address] Aug, [facility] [address] [id number] [address] [place] [address], [place] [address] Jul, [facility] [address] [id number] [address] [place] [address], [place] [address] Jul, [facility] [address] [id number] [address] [place] [address], [place] [address] Jul, [facility] [address] [id number] [address] [place] [address], [place] [address] Jul, [facility] [address] [id number] [address] [place] [address], [place] [address] Jul, [facility] [address] [id number] [address] [place] [address] Jul, [facility] [address] [id number] [address] [place] [address], [place] [address] Jul, [facility] [address] [id number] [address] [place] [address], [place] [address] Jul, [facility] [address] [id number] [address] [place] [address], [place] [address] Jul, [facility] [address] [id number] [address] [place] [address], [place] [address] Jul, [facility] [address] [id number] [address] [place] [address], [place] [address] Jun, [facility] [address] [id number] [address] [place] [address], [place] [address] Jun, [facility] [address] [id number] [address] [place] [address], [place] [address] Jun, [facility] [address] [id number] [address] [place] [address], [place] [address] Jun, [facility] [address] [id number] [address] [place] [address] Jun, [facility] [address] [id number] [address] [place] [address] Jun, [facility] [address] [id number] [address] [place] [address] Jun, [facility] [address] [id number] [address] [place] [address] Jun, [facility] [address] [id number] [address] [place] [address] Jun, [facility] [address] [id number] [address] [place] [address], [place] [address] Jun, [facility] [address] [id number] [address] [place] [address], [place] [address] May, [facility] [address] [id number] [facility] [place] [address] 29 Sep, 2013 [facility] [address] [id number] [facility] [place] [address] 26 Sep, 2013 [facility] [address] [id number] [facility] [place] [address] 26 Sep, 2013 [facility] [address] [id number] [facility] [place] [address] 17 Sep, 2013 [facility] [address] [id number] [facility] [place] [address] 17 Sep, 2013 [facility] [address] [id number] [address] [place] [address], [place] [address] 15 Sep, 2013 [facility] [address] [id number] [address] [place] [address], [place] [address] 15 Sep, 2013 [facility] [address] [id number] [address] [place] [address], [place] [address] 15 Sep, 2013 [facility] [address] [id number] [address] [place] [address], [place] [address] 15 Sep, 2013 [facility] [address] [id number] [address] [place] [address], [place] [address] 10 Sep, 2013 [facility] [address] [id number] [address] [place] [address], [place] [address] 10 Sep, 2013 [facility] [address] [id number] [address] [place] [address], [place] [address] 09 Sep, 2013 [facility] [address] [id number] [address] [place] [address], [place] [address] 09 Sep, 2013 [facility] [address] [id number] [address] [place] [address], [place] [address] 04 Sep, 2013 [facility] [address] [id number] [address] [place] [address], [place] [address] 04 May, 2013 [facility] [address] [id number] [address] [place] [address], [place] [address] Apr, [facility] [address] [id number] [facility] [place] [address] Apr, [facility] [address] [id number] [facility] [place] [address] Apr, [facility] [address] [id number] [facility] [place] [address] Apr, [facility] [address] [id number] [address] [place] [address], [place] [address] Apr, [facility] [address] [id number] [address] [place] [address], [place] [address] Apr, [facility] [address] [id number] [address] [place] [address], [place] [address] Apr, [facility] [address] [id number] [address] [place] [address], [place] [address] Apr, [facility] [address] [id number] [address] [place] [address], [place] [address] Apr, [facility] [address] [id number] [address] [place] [address], [place] [address] Apr, [facility] [address] [id number] [address] [place] [address], [place] [address] Apr, [facility] [address] [id number] [address] [place] [address], [place] [address] Apr, [facility] [address] [id number] [address] [place] [address], [place] [address] Apr, [facility] [address] [id number] [address] [place] [address], [place] [address] Apr, [facility] [address] [id number] [address] [place] [address], [place] [address] Apr, [facility] [address] [id number] [address] [place] [address], [place] [address] Mar, [facility] [address] [id number] [facility] [place] [place] [address] Mar, 2013 [facility] [address] [id number] [address] [place] [address], [place] [address] Mar, 2013 [facility] [address] [id number] [address] [place] [address], [place] [address] Mar, 2013 [facility] [address] [id number] [address] [place] [address], [place] [address] Mar, 2013 [facility] [address] [id number] [address] [place] [address], [place] [address] Mar, 2013 [facility] [address] [id number] [address] [place] [address], [place] [address] Mar, 2013 [facility] [address] [id number] [address] [place] [address], [place] [address] Mar, 2013 [facility] [address] [id number] [address] [place] [address], [place] [address] Mar, 2013 [facility] [address] [id number] [address] [place] [address], [place] [address] Mar, 2013 [facility] [address] [id number] [address] [place] [address], [place] [address] Mar, 2013 [facility] [address] [id number] [address] [place] [address], [place] [address] Mar, 2013 [facility] [address] [id number] [address] [place] [address], [place] [address] Mar, 2013 [facility] [address] [id number] [address] [place] [address], [place] [address] Mar, 2013 [facility] [address] [id number] [address] [place] [address], [place] [address] Mar, 2013 [facility] [address] [id number] [address] [place] [address], [place] [address] Mar, 2013 [facility] [address] [id number] [address] [place] [address], [place] [address] 01 Mar, 2014 [facility] [address] [id number] [facility] [place] [address] Mar, [facility] [address] [id number] [facility] [place] [address] Feb, [facility] [address] [id number] [facility] [place] [address] Feb, [facility] [address] [id number] [facility] [place] [address] Feb, [facility] [address] [id number] [facility] [place] [address] Feb, [facility] [address] [id number] [facility] [place] [address] Feb, [facility] [address] [id number] [facility] [place] [address] Feb, [facility] [address] [id number] [address] [place] [address], [place] [address] Feb, [facility] [address] [id number] [address] [place] [address], [place] [address] Feb, [facility] [address] [id number] [address] [place] [address], [place] [address] Feb, [facility] [address] [id number] [address] [place] [address], [place] [address] Feb, [facility] [address] [id number] [address] [place] [address], [place] [address] Feb, [facility] [address] [id number] [address] [place] [address], [place] [address] Feb, [facility] [address] [id number] [address] [place] [address], [place] [address] Feb, [facility] [address] [id number] [address] [place] [address], [place] [address] Feb, [facility] [address] [id number] [address] [place] [address], [place] [address] January, [facility] [address] [id number] [address] [place] [address], [place] [address] January, [facility] [address] [id number] [address] [place] [address], [place] [address] January, [facility] [address] [id number] [address] [place] [address], [place] [address] January, [facility] [address] [id number] [address] [place] [address], [place] [address] January, [facility] [address] [id number] [address] [place] [address], [place] [address] January, [facility] [address] [id number] [address] [place] [address], [place] [address] January, [facility] [address] [address] [id number] [address] [place] [address], [place] [address] January, [facility] [address] [id number] [address] [place] [address], [place] [address] January, [facility] [address] [id number] [address] [place] [address], [place] [address] January, [facility] [address] [id number] [address] [place] [address], [place] [address] January, [facility] [address] [id number] [address] [place] [address], [place] [address] January, [facility] [address] [id number] [address] [place] [address], [place] [address] January, [facility] [address] [id number] [address] [place] [address], [place] [address] January, [facility] [address] [id number] [address] [place] [address], [place] [address] Dec, [facility] [address] [id number] [address] [place] [address], [place] [address] Dec, [facility] [address] [id number] [facility] [place] [place] [address] Dec, [facility] [address] [id number] [facility] [place] [place] [address] Dec, [facility] [address] [id number] [facility] [place] [place] [address] Dec, [facility] [address] [id number] [address] [place] [address], [place] [address] Dec, [facility] [address] [id number] [address] [place] [address], [place] [address] Dec, [facility] [address] [id number] [address] [place] [address], [place] [address] Dec, [facility] [address] [id number] [address] [place] [address], [place] [address] Dec, [facility] [address] [id number] [address] [place] [address], [place] [address] Dec, [facility] [address] [id number] [address] [place] [address], [place] [address] Nov, [facility] [address] [id number] [address] [place] [address], [place] [address] Nov, [facility] [address] [id number] [address] [place] [address], [place] [address] Nov, [facility] [address] [id number] [address] [place] [address], [place] [address] Nov, [facility] [address] [id number] [address] [place] [address], [place] [address] Nov, [facility] [address] [id number] [address] [place] [address], [place] [address] Nov, [facility] [address] [id number] [address] [place] [address], [place] [address] Nov, [facility] [address] [id number] [address] [place] [address], [place] [address] Nov, [facility] [address] [id number] [facility] [place] [place] [address] Nov, [facility] [address] [id number] [address] [place] [address], [place] [address] Nov, [facility] [address] [id number] [address] [place] [address], [place] [address] Oct, [facility] [address] [id number] [address] [place] [address], [place] [address] Oct, [facility] [address] [id number] [address] [place] [address], [place] [address] Oct, [facility] [address] [id number] [address] [place] [address], [place] [address] Oct, [facility] [address] [id number] [address] [place] [address], [place] [address] Oct, [facility] [address] [id number] [address] [place] [address], [place] [address] Oct, [facility] [address] [id number] [address] [place] [address], [place] [address] Oct, [facility] [address] [id number] [address] [place] [address], [place] [address] Oct, [facility] [address] [id number] [address] [place] [address], [place] [address] Oct, [facility] [address] [id number] [address] [place] [address], [place] [address] Oct, [facility] [address] [id number] [address] [place] [address], [place] [address] Oct, [facility] [address] [id number] [address] [place] [address], [place] [address] Oct, [facility] [address] [id number] [address] [place] [address], [place] [address] Oct, [facility] [address] [id number] [address] [place] [address], [place] [address] Oct, [facility] [address] [id number] [address] [place] [address], [place] [address] Sep, [facility] [address] [id number] [address] [place] [address], [place] [address] Sep, [facility] [address] [id number] [address] [place] [address], [place] [address] Sep, [facility] [address] [id number] [address] [place] [address], [place] [address] Sep, [facility] [address] [id number] [address] [place] [address], [place] [address] Sep, [facility] [address] [id number] [address] [place] [address], [place] [address] Sep, [facility] [address] [id number] [address] [place] [address], [place] [address] Sep, [facility] [address] [id number] [address] [place] [address], [place] [address] Sep, [facility] [address] [id number] [address] [place] [address], [place] [address] Sep, [facility] [address] [id number] [address] [place] [address], [place] [address] Sep, [facility] [address] [id number] [address] [place] [address], [place] [address] Aug, [facility] [address] [id number] [address] [place] [address], [place] [address] Aug, [facility] [address] [id number] [address] [place] [address], [place] [address] Jul, [facility] [address] [id number] [address] [place] [address], [place] [address] Jul, [facility] [address] [id number] [address] [place] [address], [place] [address] Jul, [facility] [address] [id number] [address] [place] [address], [place] [address] Jul, [facility] [address] [id number] [address] [place] [address], [place] [address] Jul, [facility] [address] [id number] [address] [place] [address], [place] [address] Jul, [facility] [address] [id number] [address] [place] [address], [place] [address] Jul, [facility] [address] [id number] [address] [place] [address], [place] [address] Jul, [facility] [address] [id number] [address] [place] [address] Jul, [facility] [address] [id number] [address] [place] [address], [place] [address] Jul, [facility] [address] [id number] [address] [place] [address] Jul, [facility] [address] [id number] [address] [place] [address] Jul, [facility] [address] [id number] [address] [place] [address] Jul, [facility] [address] [id number] [address] [place] [address] Jul, [facility] [address] [id number] [address] [place] [address] Jul, [facility] [address] [id number] [address] [place] [address], [place] [address] Jul, [facility] [address] [id number] [address] [place] [address] Jul, [facility] [address] [id number] [address] [place] [address] Jul, [facility] [address] [id number] [address] [place] [address], [place] [address] Jul, 2012 [facility] [address] [id number] [address] [place] [address], [place] [address] 16 Jun, 2012 [facility] [address] [id number] [address] [place] [address], [place] [address] 16 Jun, 2012 [facility] [address] [id number] [address] [place] [address], [place] [address] 16 Jun, 2012 [facility] [address] [id number] [address] [place] [address], [place] [address] 16 Jun, 2012 [facility] [address] [id number] [address] [place] [address], [place] [address] Jun, 2012 [facility] [address] [id number] [address] [place] [address], [place] [address] 16 Jun, 2012 [facility] [address] [id number] [address] [place] [address], [place] [address] 10 Jun, 2012 [facility] [address] [id number] [address] [place] [address], [place] [address] 10 Jun, 2013 [facility] [address] [id number] [address] [place] [address], [place] [address] Jun, 2012 [facility] [address] [id number] [address] [place] [address], [place] [address] 09 Jun, 2013 [facility] [address] [id number] [address] [place] [address], [place] [address] Jun, [facility] [address] [id number] [address] [place] [address], [place] [address] 26 May, 2012 [facility] [address] [id number] [address] [place] [address], [place] [address] 25 Sep, 2012 [facility] [address] [id number] [address] [place] [address], [place] [address] 19 May, 2012 [facility] [address] [id number] [address] [place] [address], [place] [address] 17 Sep, 2012 [facility] [address] [id number] [address] [place] [address], [place] [address] 11 May, 2012 [facility] [address] [id number] [address] [place] [address], [place] [address] May, [facility] [address] [id number] [address] [place] [address], [place] [address] May, [facility] [address] [id number] [address] [place] [address], [place] [address] May, [facility] [address] [id number] [address] [place] [address], [place] [address] Apr, [facility] [address] [id number] [address] [place] [address], [place] [address] Apr, [facility] [address] [id number] [address] [place] [address], [place] [address] Apr, [facility] [address] [id number] [address] [place] [address], [place] [address] Apr, [facility] [address] [id number] [address] [place] [address], [place] [address] Apr, [facility] [address] [id number] [address] [place] [address], [place] [address] Mar, [facility] [address] [id number] [address] [place] [address], [place] [address] Mar, [facility] [address] [id number] [address] [place] [address], [place] [address] Mar, [facility] [address] [id number] [address] [place] [address], [place] [address] Mar, [facility] [address] [id number] [address] [place] [address], [place] [address] Mar, [facility] [address] [id number] [address] [place] [address], [place] [address] Mar, [facility] [address] [id number] [address] [place] [address], [place] [address] Mar, [facility] [address] [id number] [address] [place] [address], [place] [address] Mar, [facility] [address] [id number] [address] [place] [address], [place] [address] Feb, [facility] [address] [id number] [address] [place] [address], [place] [address] Feb, [facility] [address] [id number] [address] [place] [address], [place] [address] January, [facility] [address] [id number] [address] [place] [address], [place] [address] January, [facility] [address] [id number] [address] [place] [address], [place] [address] Dec, [facility] [address] [id number] [address] [place] [address], [place] [address] Dec, [facility] [address] [id number] [address] [place] [address], [place] [address] Nov, [facility] [address] [id number] [address] [place] [address], [place] [address] Nov, [facility] [address] [id number] [address] [place] [address], [place] [address] Nov, [facility] [address] [id number] [address] [place] [address], [place] [address] Nov, [facility] [address] [id number] [address] [place] [address], [place] [address] Oct, [facility] [address] [id number] [address] [place] [address], [place] [address] Oct, [facility] [address] [id number] [address] [place] [address], [place] [address] Oct, [facility] [address] [id number] [address] [place] [address], [place] [address] Oct, [facility] [address] [id number] [address] [place] [address], [place] [address] 16 Oct, 2012 [facility] [address] [id number] [address] [place] [address], [place] [address] 14 Oct, 2012 [facility] [address] [id number] [address] [place] [address], [place] [address] 08 Oct, 2012 [facility] [address] [id number] [address] [place] [address], [place] [address] 07 Oct, 2012 [facility] [address] [id number] [address] [place] [address], [place] [address] 03 Oct, 2012 [facility] [address] [id number] [address] [place] [address], [place] [address] 30 Sep, 2012 [facility] [address] [id number] [address] [place] [address], [place] [address] Sep, [facility] [address] [id number] [address] [place] [address], [place] [address] Sep, [facility] [address] [id number] [address] [place] [address], [place] [address] Sep, [facility] [address] [id number] [address] [place] [address], [place] [address] Sep, [facility] [address] [id number] [address] [place] [address], [place] [address] Sep, [facility] [address] [id number] [address] [place] [address], [place] [address] Sep, [facility] [address] [id number] [address] [place] [address], [place] [address] Sep, [facility] [address] [id number] [address] [place] [address], [place] [address] Aug, [facility] [address] [id number] [address] [place] [address], [place] [address] Aug, [facility] [address] [id number] [address] [place] [address], [place] [address] Aug, [facility] [address] [id number] [address] [place] [address], [place] [address] Aug, [facility] [address] [id number] [address] [place] [address], [place] [address] Aug, [facility] [address] [id number] [address] [place] [address], [place] [address] Aug, [facility] [address] [id number] [address] [place] [address], [place] [address] Aug, [facility] [address] [id number] [address] [place] [address], [place] [address] Aug, [facility] [address] [id number] [address] [place] [address], [place] [address] Jul, [facility] [address] [id number] [address] [place] [address], [place] [address] Jul, [facility] [address] [id number] [address] [place] [address], [place] [address] Jul, [facility] [address] [id number] [address] [place] [address], [place] [address] Jul, [facility] [address] [id number] [address] [place] [address], [place] [address] Jul, [facility] [address] [id number] [address] [place] [address], [place] [address] Jul, [facility] [address] [id number] [address] [place] [address] Jun, [facility] [address] [id number] [address] [place] [address], [place] [address] Jun, [facility] [address] [id number] [address] [place] [address], [place] [address] Jun, [facility] [address] [id number] [address] [place] [address], [place] [address] Jun, [facility] [address] [id number] [address] [place] [address], [place] [address] Jun, [facility] [address] [id number] [address] [place] [address], [place] [address] Jun, [facility] [address] [id number] [address] [place] [address], [place] [address] Jun, [facility] [address] [id number] [address] [place] [address], [place] [address] Jun, [facility] [address] [id number] [address] [place] [address], [place] [address] 10 Jun, 2012 [facility] [address] [id number] [address] [place] [address], [place] [address] 26 May, 2012 [facility] [address] [id number] [address] [place] [address], [place] [address] 24 May, 2012 [facility] [address] [id number] [address] [place] [address], [place] [address] 18 May, 2012 [facility] [address] [id number] [address] [place] [address], [place] [address] 30 Apr, 2012 [facility] [address] [id number] [address] [place] [address], [place] [address] Apr, [facility] [address] [id number] [address] [place] [address], [place] [address] Apr, [facility] [address] [id number] [address] [place] [address], [place] [address] Apr, [facility] [address] [id number] [address] [place] [address], [place] [address] Apr, [facility] [address] [id number] [address] [place] [address], [place] [address] Apr, [facility] [address] [id number] [address] [place] [address], [place] [address] Mar, [facility] [address] [id number] [address] [place] [address], [place] [address] Mar, [facility] [address] [id number] [address] [place] [address], [place] [address] Mar, [facility] [address] [id number] [address] [place] [address], [place] [address] Mar, [facility] [address] [id number] [address] [place] [address], [place] [address] Feb, [facility] [address] [id number] [address] [place] [address], [place] [address] Feb, [facility] [address] [id number] [address] [place] [address], [place] [address] Feb, [facility] [address] [id number] [address] [place] [address], [place] [address] Feb, [facility] [address] [id number] [address] [place] [address], [place] [address] Feb, [facility] [address] [id number] [address] [place] [address], [place] [address] January, [facility] [address] [id number] [address] [place] [address], [place] [address] January, [facility] [address] [id number] [address] [place] [address], [place] [address] January, [facility] [address] [id number] [address] [place] [address], [place] [address] January, [facility] [address] [id number] [address] [place] [address], [place] [address] January, [facility] [address] [id number] [address] [place] [address], [place] [address] January, [facility] [address] [id number] [address] [place] [address], [place] [address] Dec, [facility] [address] [id number] [address] [place] [address], [place] [address] Dec, [facility] [address] [id number] [address] [place] [address], [place] [address] 17 Dec, 2011 [facility] [address] [id number] [address] [place] [address], [place] [address] 09 Dec, 2011 [facility] [address] [id number] [address] [place] [address], [place] [address] 06 Dec, 2011 [facility] [address] [id number] [address] [place] [address], [place] [address] 27 Nov, 2011 [facility] [address] [id number] [address] [place] [address], [place] [address] 14 Nov, 2011 [facility] [address] [id number] [address] [place] [address], [place] [address] 12 Nov, 2011 [facility] [address] [id number] [address] [place] [address], [place] [address] 07 Nov, 2011 [facility] [address] [id number] [address] [place] [address], [place] [address] 29 Oct, 2011 [facility] [address] [id number] [address] [place] [address], [place] [address] 28 Oct, 2011 [facility] [address] [id number] [address] [place] [address], [place] [address] 24 Oct, 2011 [facility] [address] [id number] [address] [place] [address], [place] [address] 13 Oct, 2011 [facility] [address] [id number] [address] [place] [address], [place] [address] 08 Oct, 2011 [facility] [address] [id number] [address] [place] [address], [place] [address] Sep, [facility] [address] [id number] [address] [place] [address], [place] [address] 30 Sep, 2011 [facility] [address] [id number] [address] [place] [address], [place] [address] 12 Sep, 2011 [facility] [address] [id number] [address] [place] [address], [place] [address] Sep, [facility] [address] [id number] [address] [place] [address], [place] [address] Sep, [facility] [address] [id number] [address] [place] [address], [place] [address] Sep, [facility] [address] [id number] [address] [place] [address], [place] [address] Aug, [facility] [address] [id number] [address] [place] [address], [place] [address] Aug, [facility] [address] [id number] [address] [place] [address], [place] [address] Aug, [facility] [address] [id number] [address] [place] [address], [place] [address] Jul, [facility] [address] [id number] [address] [place] [address], [place] [address] Jul, [facility] [address] [id number] [address] [place] [address] Jul, [facility] [address] [id number] [address] [place] [address], [place] [address] Jul, [facility] [address] [id number] [address] [place] [address] Jun, [facility] [address] [id number] [address] [place] [id number] Jun, [facility] [address] [id number] [address] [place] [id number] 18 Jun, 2011 [facility] [address] [id number] [address] [place] [address], [place] [address] Jun, [facility] [address] [id number] [address] [place] [phone] Jun, [facility] [address] [id number] [address] [place] [phone] Jun, [facility] [address] [id number] [address] [place] [id number] 11 Mar, 2011 [facility] [address] [id number] [address] [place] [address], [place] [address] 18 Dec, 2010 [facility] [address] [id number] [address] [place] [address], [place] [address] 11 Dec, 2010 [facility] [address] [id number] [address] [place] [address], [place] [address] 18 Nov, 2010 [facility] [address] [id number] [address] [place] [address], [place] [address] 16 Nov, 2010 [facility] [address] [id number] [address] [place] [address], [place] [address] 10 Sep, 2010 [facility] [address] [id number] [address] [place] [address], [place] [address] 31 Aug, 2010 [facility] [address] [id number] [address] [place] [address], [place] [address] 29 Aug, 2010 [facility] [address] [id number] [address] [place] [address], [place] [address] 29 Aug, 2010 [facility] [address] [id number] [address] [place] [address], [place] [address] 29 Aug, 2010 [facility] [address] [id number] [address] [place] [address], [place] [address] 27 Aug, 2010 [facility] [address] [id number] [address] [place] [address], [place] [address] 14 Aug, 2010 [facility] [address] [id number] [address] [place] [address], [place] [address] 08 Aug, 2010 [facility] [address] [id number] [address] [place] [address], [place] [address] 08 Aug, 2010 [facility] [address] [id number] [address] [place] [address], [place] [address] 07 Aug, 2010 [facility] [address] [id number] [address] [place] [address], [place] [address] 06 Aug, 2010 [facility] [address] [id number] [address] [place] [address], [place] [address] Aug, [facility] [address] [id number] [address] [place] [address], [place] [address] Aug, [facility] [address] [id number] [address] [place] [address], [place] [address] Jul, [facility] [address] [id number] [address] [place] [address], [place] [address] Jul, [facility] [address] [id number] [address] [place] [address], [place] [address] Jul, [facility] [address] [id number] [address] [place] [address], [place] [address] Jul, [facility] [address] [id number] [address] [place] [address], [place] [address] Jul, [facility] [address] [id number] [address] [place] [address], [place] [address] Jul, [facility] [address] [id number] [address] [place] [address], [place] [address] Jun, [facility] [address] [id number] [address] [place] [address], [place] [address] Jun, [facility] [address] [id number] [address] [place] [address], [place] [address] Jun, [facility] [address] [id number] [address] [place] [address], [place] [address] Jun, [facility] [address] [id number] [address] [place] [address], [place] [address] Apr, [facility] [address] [id number] [address] [place] [address], [place] [address] Mar, [facility] [address] [id number] [address] [place] [address], [place] [address] Feb, [facility] [address] [id number] [address] [place] [address], [place] [address] January, [facility] [address] [id number] [address] [place] [id number] 15 Dec, 2009 [facility] [address] [id number] [address] [place] [phone] Nov, [facility] [address] [id number] [address] [place] [id number] Aug, [facility] [address] [id number] [address] [place] [phone] Aug, [facility] [address] [id number] [address] [place] [address], [place] [address] Aug, [facility] [address] [id number] [address] [place] [phone] Jul, [facility] [address] [id number] [address] [place] [phone] Jul, [facility] [address] [id number] [address] [place] [phone] Jul, [facility] [address] [id number] [address] [place] [id number] 30 Jun, 2009 [facility] [address] [id number] [address] [place] [id number] 29 Jun, 2009 [facility] [address] [id number] [address] [place] [id number] Jun, [facility] [address] [id number] [address] [place] [id number] Jun, [facility] [address] [id number] [address] [place] [phone] Jun, [facility] [address] [id number] [address] [place] [phone] Jun, [facility] [address] [id number] [address] [place] [id number] Apr, [facility] [address] [id number] [address] [place] [phone] Apr, [facility] [address] [facility] [id number] [address] [place] [phone] Feb, [facility] [address] [facility] [id number] [address] [place] [id number] January, [facility] [address] [facility] [id number] [address] [place] [id number] Dec, IMMUNIZATIONS No Known Immunizations SOCIAL HISTORY Never Assessed REASON FOR VISIT PLAN OF CARE VITAL SIGNS Height 67 in 2014-06-04 Weight 326.1 lbs 2014-06-04 Temperature 98.3 degrees Fahrenheit 2014-06-04 Heart Rate 64 bpm 2014-06-04 Respiratory Rate 20 2014-06-04 Blood pressure systolic 144 mmHg 2014-06-04 Blood pressure diastolic 82 mmHg 2014-06-04 MEDICATIONS Unknown Medications RESULTS No Results PROCEDURES Procedure Date Ordered Result Body Site ASSAY OF PSA, TOTAL Jun 04, 2014 VENIPUNCT, ROUTINE* Jun 04, 2014 INSTRUCTIONS MEDICATIONS ADMINISTERED No Known Medications MEDICAL (GENERAL) HISTORY Type Description Date Medical History type II diabetes Medical History coronary artery disease stress test 15 Medical History chronic obstructive pulmonary disease (C OPD) Medical History gastroesophageal reflux disease (GERD) Medical History acute renal failure Medical History erectile dysfunction Medical History hyperlipidemia Medical History obesity Medical History skin cancer-basal cell R restoration (removed ) Medical History Arthritis Medical History [...] 2009 Surgical History colonoscopy 2009 ([facility]), 2013 ([facility] ) Surgical History heart cath: CAD w/ [...] urinate 09/16/15 Hospitalization History [facility] ea rly 1999' Hospitalization History hyperkalemia 10/2017 Hospitalization History fluid in lung
--- OUTSIDE RECORDS SUMMARY | 2020-03-01 16:35 | XMS REPORT ---
Author Author Michele Verduzco Doctor Organization [facility] Address Unknown Phone Unavailable Care Team Providers Care Music Critic Name Role Phone Migration, Doctor Unavailable Unavailable PROBLEMS Type Condition ICD9-CM Code NUM94-FJ Code Onset Dates Condition S tatus SNOMED Code Problem Leukocytosis D72.829 Active 9174096 06 Problem Bipolar I disorder, most recent episode (or curr ent) mixed, moderate F31.62 Active 10419292 Problem Reactive airway disease J45.909 Active 914185855396 Problem Anxiety F41.9 Active 97750656 Problem Insomnia, unspecified type G47.00 Act sharon 926054798 Problem Essential hypertension I10 Active 64229969 Problem Morbid obesity E66.01 Active 20369 6002 Problem Skin cancer C44.90 Active 03228251 7 Problem DM neuro manif type II E11.49 Active 32768260 Problem Mild cognitive impairment G31.84 Acti ve 731107771 Problem Benign prostatic hyperplasia with lower urinary tract symptoms, unspecified morphology N40.1 Active 65334 6007 Problem Chronic pain G89.29 Active 1637111 1 Problem Diabetes E11.9 Active 83127787 Problem Retinal edema H35.81 Active 136668 6 Problem Anemia of chronic illness D63.8 Acti ve 712252806 Problem Falling R29.6 Active 641076167 Problem Pressure ulcer of other site, stage 3 L89.893 Active 306021227 Problem 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 Active 134489598 Problem Eye exam abnormal R93.8 Active 16 7426826 Problem Pure hypercholesterolemia E78.00 Acti ve 086779627 Problem Dysuria R30.0 Active 72036640 Problem Bipolar disorder, in partial remission, most rec ent episode depressed F31.75 Active 09331380 Problem Hypokalemia E87.6 Active 32150661 Problem Other iron deficiency anemia D50.8 A ctive 19448505 Problem Eustachian tube dysfunction, unspecified laterality H69.80 Active 51052991 Problem Primary osteoarthritis of right knee M17.11 Active 017570441878289 Problem Cough R05 Active 17046738 Problem Bipolar disorder F31.9 Active 137 67213 Problem Chronic diastolic (congestive) heart failure I50.3 2 Active 371342633 Problem Psychophysiological insomnia F51.04 A ctive 495998913 Problem Gastroesophageal reflux disease without esophagitis K21.9 Active 089212049 Problem Polyneuropathy associated with underlying disease G63 Active 003622436 Problem Other secondary acute gout, 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 0 Active 582351695 Problem Diabetic polyneuropathy associated with type 2 d iabetes mellitus E11.42 Active 25541765 Problem Chronic lymphocytic leukemia C91.10 A ctive 11178526 Problem Bilateral primary osteoarthritis of knee M17.0 Active 500343624 Problem Type 2 diabetes mellitus with diabetic neuropathy, uns pecified E11.40 Active 93192009 Problem senior living (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 Z79.4 Active 966865265 Problem Lymphocytosis D72.820 Active 538428 09 Problem Mood disorder F39 Active 416442 05 Problem Bipolar I disorder, most recent episode depressed, moderat e F31.32 Active 030288553 ALLERGIES No Information ENCOUNTERS Encounter Location Date Diagnosis [facility] [address] [facility] [id number] [address] [place] [address] Dec, [facility] [address] [facility] [id number] [address] [place] [address] Dec, [facility] [address] [facility] [id number] [address] [place] [address] Dec, [facility] [address] [facility] [id number] [address] [place] [address] Dec, Mood disorder F39 [facility] [address] [facility] [id number] [address] [place] [address] Nov, Other secondary acute gout, 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 [facility] [address] [facility] [id number] [address] [place] [address] 25 Nov, 2019 Gastroesophageal reflux dise ase without esophagitis K21.9 [facility] [address] [facility] [id number] [address] [place] [address] 23 Nov, 2019 Chronic pain G89.29 [facility] [address] [id number] [address] [place] [address] Nov, Bipolar I disorder, most rec ent episode depressed, moderate F31.32 ; Anxiety F41.9 and Mild cognitive impairment G31.84 [facility] [address] [id number] [address] [place] [address] Nov, [facility] [address] [facility] [id number] [address] [place] [address] Nov, Syncope, unspecified syncope type R55 [facility] [address] [facility] [id number] [address] [place] [address] Nov, Mood disorder F39 [facility] [address] [facility] [id number] [address] [place] [address] Oct, Chronic pain G89.29 [facility] [address] [facility] [id number] [address] [place] [address] Oct, [facility] [address] [facility] [id number] [address] [place] [address] Oct, Mood disorder F39 [facility] [address] [facility] [id number] [address] [place] [address] Oct, [facility] [address] [facility] [id number] [address] [place] [address] Oct, Bipolar disorder, in partial remission, most recent episode depressed F31.75 and Mild cognitive impairment G31.84 [facility] [address] [facility] [id number] [address] [place] [address] Oct, Mood disorder F39 [facility] [address] [facility] [id number] [address] [place] [address] Sep, [facility] [address] [facility] [id number] [address] [place] [address] Sep, Mood disorder F39 [facility] [address] [facility] [id number] [address] [place] [address] Sep, Bipolar disorder, in partial remission, most recent episode depressed F31.75 and Mild cognitive impairment G31.84 [facility] [address] [id number] [address] [place] [address] Sep, Mood disorder F39 [facility] [address] [id number] [address] [place] [address] Sep, [facility] [address] [id number] [address] [place] [address] Sep, Mood disorder F39 [facility] [address] [id number] [address] [place] [address] Sep, [facility] [address] [id number] [address] [place] [address] Aug, Mood disorder F39 [facility] [address] [id number] [address] [place] [address] Aug, [facility] [address] [id number] [address] [place] [address] Aug, [facility] [address] [id number] [address] [place] [address] Aug, [facility] [address] [id number] [address] [place] [address] Aug, [facility] [address] [id number] [address] [place] [address] Aug, [facility] [address] [id number] [address] [place] [address] Aug, [facility] [address] [id number] [address] [place] [address] Aug, [facility] [address] [id number] [address] [place] [address] Aug, Essential hypertension I10 [facility] [address] [id number] [address] [place] [address] Aug, Bipolar disorder, in partial remission, most recent episode depressed F31.75 and Mild cognitive impairment G31.84 [facility] [address] [id number] [address] [place] [address] Aug, Mood disorder F39 [facility] [address] [id number] [address] [place] [address] Aug, [facility] [address] [id number] [address] [place] [address] Aug, Bipolar disorder, in partial remission, most recent episode depressed F31.75 and Mild cognitive impairment G31.84 [facility] [address] [id number] [address] [place] [address] Jul, Bipolar disorder, in partial remission, most recent episode depressed F31.75 and Mild cognitive impairment G31.84 [facility] [address] [id number] [address] [place] [address] Jul, Psychophysiological insomnia F51.04 [facility] [address] [id number] [address] [place] [address] Jul, [facility] [address] [id number] [address] [place] [address] Jul, [facility] [address] [id number] [address] [place] [address] Jul, [facility] [address] [id number] [address] [place] [address] Jul, [facility] [address] [id number] [address] [place] [address] Jul, [facility] [address] [id number] [address] [place] [address] Jul, [facility] [address] [id number] [address] [place] [address] Jul, Bipolar disorder, in partial remission, most recent episode depressed F31.75 and Mild cognitive impairment G31.84 [facility] [address] [id number] [address] [place] [address] Jul, Chronic pain G89.29 ; Diabet es E11.9 ; Essential hypertension I10 ; Ill feeling R68.89 ; Local infection of the skin and subcutaneous tissue, unspecified L08.9 and Other injury of unspecified body region, initial encounter T14.8XXA [facility] [address] [id number] [address] [place] [address] Jun, Bipolar disorder, in partial remission, most recent episode depressed F31.75 and Mild cognitive impairment G31.84 [facility] [address] [id number] [address] [place] [address] Jun, [facility] [address] [facility] [id number] [address] [place] [address] Jun, Bipolar disorder, in partial remission, most recent episode depressed F31.75 and Mild cognitive impairment G31.84 [facility] [address] [facility] [id number] [address] [place] [address] Jun, Psychophysiological insomnia F51.04 [facility] [address] [id number] [address] [place] [address] Jun, Psychophysiological insomnia F51.04 ; Chronic pain G89.29 ; Bipolar I disorder, most recent episode (or current) mixed, moderate F31.62 ; 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 ; Polyneuropathy associated with underlying disease G63 ; Type 2 diabetes mellitus with diabetic neuropathy, unspecified E11.40 ; senior living (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 Z79.4 and Hyperglycemia R73.9 [facility] [address] [id number] [address] [place] [address] Jun, Bipolar disorder, in partial remission, most recent episode depressed F31.75 and Mild cognitive impairment G31.84 [facility] [address] [facility] [id number] [address] [place] [address] Jun, [facility] [address] [facility] [id number] [address] [place] [address] Jun, Bipolar disorder F31.9 [facility] [address] [id number] [address] [place] [address] 17 May, 2019 Bipolar disorder, in partial remission, most recent episode depressed F31.75 and Mild cognitive impairment G31.84 [facility] [address] [id number] [address] [place] [address] 05 May, 2019 [facility] [address] [id number] [address] [place] [address] Apr, Chronic pain G89.29 and Bipo lar disorder F31.9 [facility] [address] [id number] [address] [place] [address] Mar, Bipolar disorder F31.9 and C hronic pain G89.29 [facility] [address] [id number] [address] [place] [address] Feb, Bipolar disorder F31.9 [facility] [address] [facility] [id number] [address] [place] [address] Feb, Cellulitis of right upper ex tremity L03.113 and Skin abrasion T14.8XXA [facility] [address] [id number] [address] [place] [address] Feb, Bipolar disorder, in partial remission, most recent episode depressed F31.75 and Mild cognitive impairment G31.84 [facility] [address] [facility] [id number] [address] [place] [address] Feb, Chronic pain G89.29 [facility] [address] [facility] [id number] [address] [place] [address] Feb, Bipolar disorder, in partial remission, most recent episode depressed F31.75 and Mild cognitive impairment G31.84 [facility] [address] [facility] [id number] [address] [place] [address] January, Bipolar disorder, in partial remission, most recent episode depressed F31.75 and Mild cognitive impairment G31.84 [facility] [address] [facility] [id number] [address] [place] [address] January, Chronic pain G89.29 and Bipo lar disorder F31.9 [facility] [address] [id number] [address] [place] [address] January, Bipolar disorder, in partial remission, most recent episode depressed F31.75 and Mild cognitive impairment G31.84 [facility] [address] [id number] [address] [place] [address] Dec, [facility] [address] [id number] [address] [place] [address] Dec, Chronic pain G89.29 and Bipo lar disorder F31.9 [facility] [address] [id number] [address] [place] [address] Dec, Edema of both lower extremit ies R60.0 [facility] [address] [id number] [address] [place] [address] Dec, Bipolar disorder F31.9 [facility] [address] [id number] [address] [place] [address] Dec, Bipolar disorder, in partial remission, most recent episode depressed F31.75 and Mild cognitive impairment G31.84 [facility] [address] [id number] [address] [place] [address] Nov, [facility] [address] [id number] [address] [place] [address] Nov, Chronic pain G89.29 [facility] [address] [id number] [address] [place] [address] Nov, Bipolar disorder, in partial remission, most recent episode depressed F31.75 and Mild cognitive impairment G31.84 [facility] [address] [id number] [address] [place] [address] Nov, Bipolar disorder F31.9 [facility] [address] [id number] [address] [place] [address] 04 Nov, 2018 Encounter for Medicare annua wellness exam Z00.00 ; Polyneuropathy associated with [...] unspecified morphology N40.1 and Essential hypertension I10 [address] [address] Oct, Chronic pain G89.[address] [address] 18 Oct, 2018 Diabetes E11.[address] [address] Oct, Bipolar I disorder, most rec ent episode (or current) mixed, moderate F31.62 and Mild cognitive impairment G31.[address] [address] Oct, Bipolar I disorder, most rec ent episode (or current) mixed, moderate F31.62 and Mild cognitive impairment G31.[address] [address] Sep, Bipolar I disorder, most rec ent episode (or current) mixed, moderate F31.62 and Mild cognitive impairment G31.84 [facility] [address] [address] Sep, [address] [address] Sep, Diabetes E11.9 ; Hypoxia R09 .02 ; Hyperglycemia R73.9 ; Therapeutic drug monitoring Z51.81 ; BMI 50.0-59.9, adult Z68.43 and Skin cancer C44.[address] [address] Sep, Chronic pain G89.29 [facility] [address] [id number] [address] [place] [address] Sep, Bipolar I disorder, most rec ent episode (or current) mixed, moderate F31.62 [facility] [address] [id number] [address] [place] [address] Sep, [facility] [address] [id number] [address] [place] [address] Sep, [facility] [address] [id number] [address] [place] [address] Aug, Chronic pain G89.29 [facility] [address] [id number] [address] [place] [address] Aug, Bipolar I disorder, most rec ent episode (or current) mixed, moderate F31.62 [facility] [address] [id number] [address] [place] [address] Aug, Bipolar I disorder, most rec ent episode (or current) mixed, moderate F31.62 and Mild cognitive impairment G31.84 [facility] [address] [facility] [id number] [address] [place] [address] Jul, [facility] [address] [facility] [id number] [address] [place] [address] Jul, Chronic pain G89.29 [facility] [address] [id number] [address] [place] [address] Jul, Bipolar I disorder, most rec ent episode (or current) mixed, moderate F31.62 and Mild cognitive impairment G31.84 [facility] [address] [facility] [id number] [address] [place] [address] Jul, Bipolar I disorder, most rec ent episode (or current) mixed, moderate F31.62 and MCI (mild cognitive impairment) G31.84 [facility] [address] [facility] [id number] [address] [place] [address] Jul, [facility] [address] [id number] [address] [place] [address] Jul, [facility] [address] [id number] [address] [place] [address] Jul, Bipolar I disorder, most rec ent episode (or current) mixed, moderate F31.62 [facility] [address] [facility] [id number] [address] [place] [address] Jul, Chronic pain G89.29 [facility] [address] [id number] [address] [place] [address] Jun, Bipolar I disorder, most rec ent episode (or current) mixed, moderate F31.62 [facility] [address] [facility] [id number] [address] [place] [address] Jun, Pre-procedure lab exam Z01.8 12 [facility] [address] [facility] [id number] [address] [place] [address] Jun, [facility] [address] [id number] [place] [id number] Jun, [facility] [address] [facility] [id number] [address] [place] [address] Jun, [facility] [address] [facility] [id number] [address] [place] [address] Jun, Forgetfulness R68.89 ; Pre-s yncope R55 ; Localized edema R60.0 ; Other iron deficiency anemia D50.8 and BMI 50.0-59.9, adult Z68.43 [facility] [address] [facility] [id number] [address] [place] [address] Jun, Chronic pain G89.29 [facility] [address] [facility] [id number] [address] [place] [address] Jun, Chronic pain G89.29 [facility] [address] [facility] [id number] [address] [place] [address] Jun, Bipolar I disorder, most rec ent episode (or current) mixed, moderate F31.62 [facility] [address] [facility] [id number] [address] [place] [address] May, Chronic pain G89.29 [facility] [address] [facility] [id number] [address] [place] [address] Apr, [facility] [address] [facility] [id number] [address] [place] [address] Apr, Chronic pain G89.29 [facility] [address] [facility] [id number] [address] [place] [address] Apr, Primary osteoarthritis of ri ght knee M17.11 [facility] [place] [address] [facility] [id number] [address] [place] [address] Mar, [facility] [address] [facility] [id number] [address] [place] [address] Mar, BMI 50.0-59.9, adult Z68.43 and Bipolar disorder, in partial remission, most recent episode depressed F31.75 [facility] [place] [address] [facility] [id number] [address] [place] [address] Mar, Diabetes E11.9 ; Pure hyperc holesterolemia E78.00 ; Essential hypertension I10 ; Nausea with vomiting, unspecified R11.2 and Headache, unspecified headache type R51 [facility] [place] [address] [facility] [id number] [address] [place] [address] Mar, Bipolar I disorder, most rec ent episode (or current) mixed, moderate F31.62 [place] [address] [facility] [id number] [address] [place] [address] Mar, Bipolar I disorder, most rec ent episode (or current) mixed, moderate F31.62 [place] [place] [address] [facility] [id number] [address] [place] [address] Mar, Chronic pain G89.29 [facility] [address] [facility] [id number] [address] [place] [address] Mar, Bipolar I disorder, most rec ent episode (or current) mixed, moderate F31.62 [facility] [address] [facility] [id number] [address] [place] [address] Feb, Bipolar I disorder, most rec ent episode (or current) mixed, moderate F31.62 [facility] [address] [facility] [id number] [address] [place] [address] Feb, Chronic pain G89.29 [facility] [address] [facility] [id number] [address] [place] [id number] Feb, Decubitus ulcer of right josselin t, stage 3 L89.893 and BMI 50.0-59.9, adult Z68.43 [facility] [address] [facility] [id number] [address] [place] [id number] Feb, Bipolar I disorder, most rec ent episode (or current) mixed, moderate F31.62 [facility] [address] [facility] [id number] [address] [place] [id number] Feb, [facility] [address] [facility] [id number] [address] [place] [id number] January, [facility] [address] [facility] [id number] [address] [place] [phone] January, Chronic pain G89.29 [facility] [address] [facility] [id number] [address] [place] [id number] January, Bipolar I disorder, most rec ent episode (or current) mixed, moderate F31.62 [facility] [address] [facility] [id number] [address] [place] [id number] January, Bipolar I disorder, most rec ent episode (or current) mixed, moderate F31.62 [facility] [address] [facility] [id number] [address] [place] [id number] Dec, Bipolar I disorder, most rec ent episode (or current) mixed, moderate F31.62 and BMI 50.0-59.9, adult Z68.43 [place] [address] [facility] [id number] [address] [place] [address] Dec, Bipolar I disorder, most rec ent episode (or current) mixed, moderate F31.62 [place] [address] [address] [place] [id number] [address] [place] [address] Dec, Chronic pain G89.29 [place] [address] [address] [place] [id number] [address] [place] [address] Dec, DM neuro manif type II E11.4 9 ; Right flank pain R10.9 ; emt intermediate 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 Z79.891 ; Encounter for medication monitoring Z51.81 and BMI 50.0-59.9, adult Z68.43 [place] [address] [place] [id number] [address] [place] [address] Dec, Bipolar I disorder, most rec ent episode (or current) mixed, moderate F31.62 [place] [address] [address] [place] [id number] [address] [place] [address] Nov, Bipolar I disorder, most rec ent episode (or current) mixed, moderate F31.62 [place] [address] [address] [place] [id number] [address] [place] [address] Nov, Chronic pain G89.29 [place] [address] [address] [place] [id number] [address] [place] [address] Nov, Bipolar I disorder, most rec ent episode (or current) mixed, moderate F31.62 [place] [address] [address] [place] [id number] [address] [place] [address] Nov, Hypokalemia E87.6 [place] [address] [address] [place] [id number] [address] [place] [address] Nov, Bipolar I disorder, most rec ent episode (or current) mixed, moderate F31.62 [place] [address] [place] [id number] [address] [place] [address] Oct, Chronic pain G89.29 [place] [address] [address] [place] [id number] [address] [place] [address] Oct, BMI 50.0-59.9, adult Z68.43 and Bipolar I disorder, most recent episode (or current) mixed, moderate F31.62 [facility] [address] [place] [id number] [address] [place] [address] Oct, Bipolar I disorder, most rec ent episode (or current) mixed, moderate F31.62 [facility] [address] [place] [id number] [address] [place] [address] Oct, [place] [address] [place] [id number] [place] [address] Oct, Hypokalemia E87.6 [place] [address] [place] [id number] [place] [address] Oct, DM neuro manif type II E11.4 9 [place] [address] [place] [id number] [place] [address] Oct, Bipolar I disorder, most rec ent episode (or current) mixed, moderate F31.62 [place] [address] [place] [id number] [place] [address] Oct, Bipolar I disorder, most rec ent episode (or current) mixed, moderate F31.62 [place] [address] [place] [id number] [address] [place] [address] Oct, Hyperkalemia E87.5 ; Falling R29.6 ; BMI 50.0-59.9, adult Z68.43 and Acute left ankle pain M25.572 [place] [address] [place] [id number] [address] [place] [address] Oct, DM neuro manif type II E11.4 9 [facility] [address] [facility] [id number] [address] [place] [address] Oct, [facility] [address] [place] [id number] [address] [place] [address] Sep, Chronic pain G89.29 [place] [address] [facility] [id number] [address] [place] [address] Sep, [place] [address] [place] [id number] [address] [place] [address] Sep, Bilateral primary osteoarthr itis of knee M17.0 [place] [address] [address] [place] [id number] [address] [place] [address] Sep, Generalized edema R60.1 [place] [address] [address] [place] [id number] [address] [place] [address] Sep, Bipolar I disorder, most rec ent episode (or current) mixed, moderate F31.62 [place] [address] [place] [id number] [address] [place] [address] Sep, Hypoxia R09.02 ; Other hyper volemia E87.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 ; Anemia of chronic illness D63.8 and BMI 50.0- 59.9, adult Z68.43 [place] [address] [address] [place] [id number] [address] [place] [address] Sep, [place] [address] [place] [id number] [address] [place] [address] Sep, Bipolar I disorder, most rec ent episode (or current) mixed, moderate F31.62 [place] [address] [facility] [id number] [address] [place] [address] Aug, Chronic pain G89.29 [place] [address] [address] [place] [id number] [address] [place] [address] Aug, Generalized edema R60.1 [place] [address] [place] [id number] [address] [place] [address] Aug, [place] [address] [place] [id number] [address] [place] [address] Aug, [facility] [address] [facility] [id number] [address] [place] [address] Aug, Bipolar I disorder, most rec ent episode (or current) mixed, moderate F31.62 [facility] [address] [facility] [id number] [address] [place], [place] [address] Aug, Bipolar I disorder, most rec ent episode (or current) mixed, moderate F31.62 [place] [address] [place] [id number] [address] [place] [address] Aug, Chronic pain G89.29 [place] [address] [place] [id number] [address] [place] [address] Jul, Bipolar I disorder, most rec ent episode (or current) mixed, moderate F31.62 [place] [address] [place] [id number] [address] [place] [address] Jul, Bipolar I disorder, most rec ent episode (or current) mixed, moderate F31.62 and BMI 60.0-69.9, adult Z68.44 [place] [address] [facility] [id number] [address] [place] [address] Jul, Bipolar I disorder, most rec ent episode (or current) mixed, moderate F31.62 [facility] [address] [place] [id number] [address] [place] [address] Jul, Chronic pain G89.29 [facility] [address] [place] [id number] [address] [place] [address] Jul, Bipolar I disorder, most rec ent episode (or current) mixed, moderate F31.62 [place] [address] [place] [id number] [address] [place] [address] Jun, Polyneuropathy associated wi th underlying disease G63 and Diabetes E11.9 [facility] [address] [facility] [id number] [address] [place] [address] Jun, Bipolar I disorder, most rec ent episode (or current) mixed, moderate F31.62 [facility] [address] [id number] [address] [place] [address] Jun, Chronic pain G89.29 [facility] [address] [id number] [address] [place] [address] May, Bipolar I disorder, most rec ent episode (or current) mixed, moderate F31.62 [facility] [address] [id number] [address] [place] [address] May, Bipolar I disorder, most rec ent episode (or current) mixed, moderate F31.62 [facility] [address] [id number] [address] [place] [address] May, Diabetic polyneuropathy asso ciated with type 2 diabetes mellitus E11.42 [facility] [address] [facility] [id number] [address] [place] [address] May, Bipolar I disorder, most rec ent episode (or current) mixed, moderate F31.62 [facility] [address] [id number] [address] [place] [address] May, Bipolar I disorder, most rec ent episode (or current) mixed, moderate F31.62 [facility] [address] [facility] [id number] [address] [place] [address] May, Chronic pain G89.29 [facility] [address] [id number] [address] [place] [address] Apr, Bipolar I disorder, most rec ent episode (or current) mixed, moderate F31.62 [facility] [address] [id number] [address] [place] [address] Apr, [facility] [address] [facility] [id number] [address] [place] [address] Apr, Chronic pain G89.29 and DM n euro manif type II E11.49 [facility] [address] [id number] [address] [place] [address] Apr, [facility] [address] [id number] [address] [place] [address] Apr, Bipolar I disorder, most rec ent episode (or current) mixed, moderate F31.62 [facility] [address] [facility] [id number] [address] [place] [address] Apr, Chronic pain G89.29 [facility] [address] [facility] [id number] [address] [place] [address] Apr, Iliotibial band syndrome, le ft M76.32 [facility] [address] [id number] [address] [place] [address] Apr, Bipolar I disorder, most rec ent episode (or current) mixed, moderate F31.62 [facility] [address] [facility] [id number] [address] [place] [address] Mar, Bipolar I disorder, most rec ent episode (or current) mixed, moderate F31.62 [facility] [address] [facility] [id number] [address] [place] [address] Mar, Bipolar I disorder, most rec ent episode (or current) mixed, moderate F31.62 [facility] [address] [facility] [id number] [address] [place] [address] Mar, [facility] [address] [facility] [id number] [address] [place] [address] Mar, Bipolar I disorder, most rec ent episode (or current) mixed, moderate F31.62 [facility] [address] [facility] [id number] [address] [place] [address] Mar, Chronic pain G89.29 [facility] [address] [facility] [id number] [address] [place] [address] Mar, Bipolar I disorder, most rec ent episode (or current) mixed, moderate F31.62 [facility] [address] [facility] [id number] [address] [place] [address] Mar, Bipolar I disorder, most rec ent episode (or current) mixed, moderate F31.62 [place] [address] [facility] [id number] [address] [place] [address] Mar, Acute pain of left knee M25. 562 ; Left hip pain M25.552 ; Generalized edema R60.1 and Tongue swelling R22.0 [place] [address] [facility] [id number] [address] [place] [address] Mar, [place] [address] [place] [id number] [address] [place] [address] Feb, Chronic pain G89.29 [place] [address] [place] [id number] [address] [place] [address] Feb, Diabetes E11.9 [place] [address] [place] [id number] [place] [address] January, Chronic pain G89.29 [place] [address] [place] [id number] [address] [place] [address] January, [place] [address] [place] [id number] [address] [place] [address] January, Bipolar I disorder, most rec ent episode (or current) mixed, moderate F31.62 [place] [address] [place] [id number] [address] [place] [address] Dec, Bipolar I disorder, most rec ent episode (or current) mixed, moderate F31.62 [place] [address] [place] [id number] [address] [place] [address] Dec, Chronic pain G89.29 [place] [address] [place] [id number] [address] [place] [address] Dec, Bipolar I disorder, most rec ent episode (or current) mixed, moderate F31.62 [place] [address] [place] [id number] [address] [place] [address] Dec, Diabetes E11.9 ; Essential h ypertension I10 ; Chronic pain G89.29 and Morbid obesity E66.01 [place] [address] [id number] [address] [place] [address] Dec, [facility] [address] [id number] [address] [place] [address] Dec, Bipolar I disorder, most rec ent episode (or current) mixed, moderate F31.62 [facility] [address] [id number] [address] [place] [address] Dec, Bipolar I disorder, most rec ent episode (or current) mixed, moderate F31.62 [facility] [address] [id number] [address] [place] [address] Nov, Chronic pain G89.29 [facility] [address] [id number] [address] [place] [address] Nov, Bipolar I disorder, most rec ent episode (or current) mixed, moderate F31.62 [facility] [address] [facility] [id number] [address] [place] [address] Nov, [facility] [address] [id number] [address] [place] [address] Nov, Bipolar I disorder, most rec ent episode (or current) mixed, moderate F31.62 [facility] [address] [facility] [id number] [address] [place] [address] Nov, Bipolar I disorder, most rec ent episode (or current) mixed, moderate F31.62 [facility] [address] [facility] [id number] [address] [place] [address] Nov, [facility] [address] [id number] [address] [place] [address] Nov, [facility] [address] [facility] [id number] [address] [place] [address] Nov, [facility] [address] [facility] [id number] [address] [place] [address] Oct, Chronic pain G89.29 [facility] [address] [id number] [address] [place] [address] Oct, Bipolar I disorder, most rec ent episode (or current) mixed, moderate F31.62 [facility] [address] [id number] [address] [place] [address] 23 Oct, 2016 [facility] [address] [facility] [id number] [address] [place] [address] Oct, Chronic pain G89.29 ; Diabet es E11.9 ; Anxiety F41.9 and 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 [facility] [address] [facility] [id number] [address] [place] [address] Oct, [facility] [address] [facility] [id number] [address] [place] [address] Oct, Diabetes E11.9 [facility] [address] [facility] [id number] [address] [place] [address] Oct, Bipolar I disorder, most rec ent episode (or current) mixed, moderate F31.62 [facility] [address] [facility] [id number] [address] [place] [address] Sep, Chronic pain G89.29 [facility] [address] [facility] [id number] [address] [place] [address] Sep, Chronic pain G89.29 [facility] [address] [facility] [id number] [address] [place] [address] Aug, Chronic pain G89.29 [facility] [address] [id number] [address] [place] [address] Jul, [facility] [address] [facility] [id number] [address] [place] [address] Jul, Diabetes E11.9 [facility] [address] [id number] [address] [place] [address] Jul, Chronic pain G89.29 [facility] [address] [facility] [id number] [address] [place] [address] Jul, Bipolar I disorder, most rec ent episode (or current) mixed, moderate F31.62 [facility] [address] [facility] [id number] [address] [place] [address] Jun, Bipolar I disorder, most rec ent episode (or current) mixed, moderate F31.62 [facility] [address] [facility] [id number] [address] [place] [address] Jun, [facility] [address] [facility] [id number] [address] [place] [address] Jun, Bipolar I disorder, most rec ent episode (or current) mixed, moderate F31.62 [place] [address] [facility] [id number] [address] [place] [address] May, Insomnia, unspecified type G 47.00 [facility] [address] [facility] [id number] [address] [place] [address] May, Bipolar I disorder, most rec ent episode (or current) mixed, moderate F31.62 [facility] [address] [facility] [id number] [address] [place] [address] May, [facility] [address] [place] [id number] [address] [place] [address] May, Bipolar I disorder, most rec ent episode (or current) mixed, moderate F31.62 [facility] [address] [place] [id number] [address] [place] [address] May, Diabetes E11.9 and Essential hypertension I10 [facility] [address] [facility] [id number] [address] [place] [address] Apr, Chronic pain G89.29 [facility] [address] [facility] [id number] [address] [place] [address] Apr, Bipolar I disorder, most rec ent episode (or current) mixed, moderate F31.62 [facility] [address] [place] [id number] [address] [place] [address] Apr, [place] [address] [facility] [id number] [address] [place] [address] Apr, [place] [address] [facility] [id number] [address] [place] [address] Mar, Chronic pain G89.29 ; Headac he, unspecified headache type R51 ; Neuropathy G62.9 ; Pain of right hip joint M25.551 and Essential hypertension I10 [place] [address] [facility] [id number] [address] [place] [address] Mar, Chronic pain G89.29 [place] [address] [facility] [id number] [address] [place] [address] Mar, Bipolar I disorder, most rec ent episode (or current) mixed, moderate F31.62 [place] [address] [place] [id number] [place] [address] Feb, Bipolar I disorder, most rec ent episode (or current) mixed, moderate F31.62 and Insomnia, unspecified type G47.00 [place] [id number] [place] [address] Feb, Chronic pain G89.29 [place] [address] [place] [id number] [address] [place] [address] Feb, Bipolar I disorder, most rec ent episode (or current) mixed, moderate F31.62 [place] [address] [place] [id number] [address] [place] [address] January, Bipolar I disorder, most rec ent episode (or current) mixed, moderate F31.62 [place] [address] [place] [id number] [address] [place] [address] January, Chronic pain G89.29 [place] [address] [place] [id number] [address] [place] [address] January, Chronic pain G89.29 and Esse ntial hypertension I10 [place] [address] [place] [id number] [address] [place] [address] January, Bipolar I disorder, most rec ent episode (or current) mixed, moderate F31.62 [facility] [address] [facility] [id number] [address] [place] [address] Dec, [facility] [address] [facility] [id number] [address] [place] [address] Dec, [facility] [address] [facility] [id number] [address] [place] [address] Dec, [facility] [address] [facility] [id number] [address] [place] [address] Dec, [facility] [address] [facility] [id number] [address] [place] [address] Nov, Reactive airway disease J45. 909 [facility] [address] [place] [id number] [address] [place] [address] Nov, [facility] [address] [facility] [id number] [address] [place] [address] Nov, [facility] [address] [facility] [id number] [address] [place] [address] Nov, [facility] [address] [facility] [id number] [address] [place] [address] Nov, [facility] [address] [facility] [id number] [address] [place] [id number] Nov, Onychomycosis B35.1 ; Hammer toe M20.40 ; [place] or callus L84 and DM neuro manif type II E11.49 [facility] [address] [facility] [id number] [address] [place] [id number] Nov, Chronic pain G89.29 ; Leukoc ytosis D72.829 and Diabetes E11.9 [facility] [address] [facility] [id number] [address] [place] [id number] Nov, [facility] [address] [place] [id number] [address] [place] [phone] Oct, Bronchitis J40 [facility] [address] [id number] Oct, [facility] [address] [address] Oct, [facility] [address] [id number] Oct, Mastoiditis, unspecified lat erality H70.90 and Type 2 diabetes mellitus with complication E11.8 [place] [address] [id number] Sep, [place] [address] [address] Sep, Dysuria R30.0 ; Cough R05 ; Benign prostatic hyperplasia with lower urinary tract symptoms, unspecified morphology N40.1 ; Hypokalemia E87.6 and Eustachian tube dysfunction, unspecified laterality H69.80 [place] [address] [address] Sep, Moderate mixed bipolar I dis order F31.62 [place] [address] [address] Sep, Hypokalemia E87.6 [place] [address] [address] Sep, [place] [address] [address] Sep, Upper respiratory tract infe ction, unspecified type J06.9 [place] [address] [id number] Aug, [place] [address] [id number] Aug, Dysuria R30.0 [place] [address] [id number] Aug, [facility] [address] [id number] [address] [place] [id number] Jul, [facility] [address] [id number] [address] [place] [id number] Jul, [facility] [address] [id number] [address] [place] [id number] Jul, [facility] [address] [id number] [address] [place] [id number] Jul, [facility] [address] [id number] [address] [place] [id number] Jun, [facility] [address] [id number] [address] [place] [id number] Jun, [facility] [address] [id number] [address] [place] [id number] Jun, [facility] [address] [id number] [address] [place] [id number] May, [facility] [address] [id number] [address] [place] [id number] May, Bipolar I disorder, most rec ent episode (or current) mixed, moderate 296.62 [facility] [address] [address] [id number] [address] [place] [address] May, [facility] [address] [id number] [address] [place] [address] May, Bipolar I disorder, most rec ent episode (or current) mixed, moderate 296.62 and Major depressive disorder, recurrent episode, severe, specified as with psychotic behavior 296.34 [facility] [address] [id number] [address] [place] [address] May, Bipolar I disorder, most rec ent episode (or current) mixed, moderate 296.62 [facility] [address] [id number] [address] [place] [address] May, [facility] [address] [id number] [address] [place] [address] Apr, [facility] [address] [id number] [address] [place] [address] Apr, [facility] [address] [facility] [id number] [address] [place] [address] Apr, Unspecified disorder of kidn ey and ureter 593.9 and Diabetes mellitus type 2, uncontrolled 250.02 [facility] [address] [id number] [address] [place] [address] Apr, [facility] [address] [id number] [address] [place] [address] Apr, [facility] [address] [id number] [address] [place] [address] Apr, [facility] [address] [id number] [address] [place] [address] Apr, [facility] [address] [id number] [address] [place] [address] Apr, Diabetes mellitus type II, u ncontrolled 250.02 [facility] [address] [id number] [address] [place] [address] Apr, [facility] [address] [id number] [address] [place] [address] Mar, [facility] [address] [id number] [address] [place] [address] Mar, [facility] [address] [facility] [id number] [address] [place] [address] Mar, [facility] [address] [facility] [id number] [address] [place] [address] Mar, Major depressive disorder, r ecurrent episode, severe, specified as with psychotic behavior 296.34 and Bipolar I disorder, most recent episode (or current) mixed, moderate 296.62 [facility] [address] [place] [id number] [address] [place] [address] Mar, Diabetes 250.00 ; Anuria 788 .5 ; Nausea and vomiting 787.01 and Diarrhea 787.91 [facility] [address] [address] Mar, Diabetes 250.00 [facility] [address] [address] Mar, [facility] [address] [address] Mar, Diabetes 250.00 [facility] [address] [address] Mar, [facility] [address] [address] Mar, [facility] [address] [address] Mar, [facility] [address] [address] Mar, [facility] [address] [address] Mar, Bipolar I disorder, most rec ent episode (or current) mixed, moderate 296.62 and Major depressive disorder, recurrent episode, severe, specified as with psychotic behavior 296.34 [facility] [address] [address] Mar, Magnesium deficiency 275.2 ; Hypokalemia 276.8 ; Nausea & vomiting 787.01 and Diabetes mellitus type 2, uncontrolled 250.02 [facility] [address] [address] Feb, [facility] [address] [address] Feb, Bipolar I disorder, most rec ent episode (or current) mixed, moderate 296.62 [facility] [address] [address] Feb, Nausea and vomiting 787.01 ; Left elbow pain 719.42 ; Anuria 788.5 and Diabetes 250.00 [facility] [address] [address] Feb, [facility] [address] [address] Feb, Hypopotassemia 276.8 and Hyp okalemia 276.8 [place] [address] [address] Feb, Hypopotassemia 276.8 and Hyp okalemia 276.8 [place] [address] [address] Feb, Seborrheic keratoses 702.19 [place] [address] [address] Feb, Hypopotassemia 276.8 and Low magnesium levels 275.2 [place] [address] [address] January, [place] [address] [address] January, [place] [address] [address] January, [place] [address] [address] January, Scalp lesion 709.9 [place] [address] [address] January, [place] [address] [address] Dec, Tear of medial cartilage or meniscus of knee, current 836.0 and 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 [place] [address] [address] Dec, [facility] [address] [id number] [address] [place] [address], [place] [address] Dec, [facility] [address] [id number] [address] [place] [address], [place] [address] 28 Dec, 2014 Squamous cell carcinoma, 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 [facility] [address] [id number] [address] [place] [address], [place] [address] 14 Dec, 2014 [facility] [address] [id number] [address] [place] [address], [place] [address] 13 Dec, 2014 [facility] [address] [id number] [address] [place] [address], [place] [address] Nov, [facility] [address] [id number] [address] [place] [address], [place] [address] Nov, [facility] [address] [id number] [address] [place] [address], [place] [address] Nov, [facility] [address] [id number] [address] [place] [address], [place] [address] Nov, [facility] [address] [id number] [address] [place] [address], [place] [address] Nov, [facility] [address] [id number] [address] [place] [address], [place] [address] Nov, [facility] [address] [id number] [address] [place] [address], [place] [address] Nov, [facility] [address] [id number] [address] [place] [address], [place] [address] Nov, [facility] [address] [id number] [address] [place] [address], [place] [address] Nov, [facility] [address] [id number] [address] [place] [address], [place] [address] Nov, [facility] [address] [id number] [address] [place] [address], [place] [address] Nov, [facility] [address] [id number] [address] [place] [address], [place] [address] Nov, [facility] [address] [id number] [address] [place] [address], [place] [address] Oct, [facility] [address] [id number] [address] [place] [address], [place] [address] Oct, 2014 [facility] [address] [id number] [address] [place] [address], [place] [address] Oct, 2014 [facility] [address] [id number] [address] [place] [address], [place] [address] Oct, 2014 [facility] [address] [id number] [address] [place] [address], [place] [address] Oct, 2014 [facility] [address] [id number] [address] [place] [address], [place] [address] Oct, 2014 [facility] [address] [id number] [address] [place] [address], [place] [address] Oct, [facility] [address] [id number] [address] [place] [address], [place] [address] Oct, [facility] [address] [id number] [address] [place] [address], [place] [address] Oct, [facility] [address] [id number] [address] [place] [address], [place] [address] Sep, [facility] [address] [id number] [address] [place] [address], [place] [address] Sep, [facility] [address] [id number] [address] [place] [address], [place] [address] Sep, [facility] [address] [id number] [address] [place] [address], [place] [address] Sep, [facility] [address] [id number] [address] [place] [address], [place] [address] Sep, [facility] [address] [id number] [address] [place] [address], [place] [address] Sep, [facility] [address] [id number] [address] [place] [address], [place] [address] Sep, [facility] [address] [id number] [address] [place] [address], [place] [address] Sep, [facility] [address] [id number] [address] [place] [address], [place] [address] Sep, [facility] [address] [id number] [address] [place] [address], [place] [address] Sep, [facility] [address] [id number] [address] [place] [address], [place] [address] Sep, [facility] [address] [id number] [address] [place] [address], [place] [address] Sep, [facility] [address] [id number] [address] [place] [address], [place] [address] Sep, [facility] [address] [id number] [address] [place] [address], [place] [address] Sep, [facility] [address] [id number] [address] [place] [address], [place] [address] Sep, [facility] [address] [id number] [address] [place] [address], [place] [address] Sep, [facility] [address] [id number] [address] [place] [address], [place] [address] Aug, [facility] [address] [id number] [address] [place] [address], [place] [address] Aug, [facility] [address] [id number] [address] [place] [address], [place] [address] Aug, [facility] [address] [id number] [address] [place] [address], [place] [address] Aug, [facility] [address] [id number] [address] [place] [address], [place] [address] Aug, [facility] [address] [id number] [facility] [place] [address] Aug, [facility] [address] [id number] [facility] [place] [address] Aug, [facility] [address] [id number] [address] [place] [address], [place] [address] Aug, [facility] [address] [id number] [address] [place] [address], [place] [address] Aug, [facility] [address] [id number] [address] [place] [address], [place] [address] Aug, [facility] [address] [id number] [address] [place] [address], [place] [address] Aug, [facility] [address] [place] [id number] Aug, [facility] [address] [id number] [address] [place] [address], [place] [address] Aug, [facility] [address] [id number] [address] [place] [address], [place] [address] Aug, [facility] [address] [id number] [address] [place] [address], [place] [address] Aug, [facility] [address] [id number] [address] [place] [address], [place] [address] Aug, [facility] [address] [id number] [address] [place] [address], [place] [address] Aug, [facility] [address] [id number] [address] [place] [address], [place] [address] Aug, [facility] [address] [id number] [address] [place] [address], [place] [address] Aug, [facility] [address] [id number] [address] [place] [address], [place] [address] Aug, [facility] [address] [id number] [address] [place] [address], [place] [address] Aug, [facility] [address] [id number] [address] [place] [address], [place] [address] Aug, [facility] [address] [id number] [address] [place] [address], [place] [address] Aug, [facility] [address] [id number] [address] [place] [address], [place] [address] Aug, [facility] [address] [id number] [address] [place] [address], [place] [address] Aug, [facility] [address] [id number] [address] [place] [address], [place] [address] Aug, [facility] [address] [id number] [address] [place] [address], [place] [address] Aug, [facility] [address] [id number] [address] [place] [address], [place] [address] Aug, [facility] [address] [id number] [address] [place] [address], [place] [address] Aug, [facility] [address] [id number] [address] [place] [address], [place] [address] Aug, [facility] [address] [id number] [address] [place] [address], [place] [address] Jul, [facility] [address] [id number] [address] [place] [address], [place] [address] Jul, [facility] [address] [id number] [address] [place] [address], [place] [address] Jul, [facility] [address] [id number] [address] [place] [address], [place] [address] Jul, [facility] [address] [id number] [address] [place] [address], [place] [address] Jul, [facility] [address] [id number] [address] [place] [address], [place] [address] Jul, [facility] [address] [id number] [address] [place] [address], [place] [address] Jul, [facility] [address] [id number] [address] [place] [address], [place] [address] Jul, [facility] [address] [id number] [address] [place] [address], [place] [address] Jul, [facility] [address] [id number] [address] [place] [address], [place] [address] Jul, [facility] [address] [id number] [address] [place] [address], [place] [address] Jun, [facility] [address] [id number] [address] [place] [address], [place] [address] Jun, [facility] [address] [id number] [address] [place] [address], [place] [address] Jun, [facility] [address] [id number] [address] [place] [address], [place] [address] Jun, [facility] [address] [id number] [address] [place] [address], [place] [address] Jun, [facility] [address] [id number] [address] [place] [address], [place] [address] Jun, [facility] [address] [id number] [address] [place] [address], [place] [address] Jun, [facility] [address] [id number] [address] [place] [address], [place] [address] Jun, [facility] [address] [id number] [address] [place] [address], [place] [address] Jun, [facility] [address] [id number] [address] [place] [address], [place] [address] Jun, [facility] [address] [id number] [address] [place] [address], [place] [address] May, [facility] [address] [id number] [address] [place] [address], [place] [address] 29 May, 2014 [facility] [address] [id number] [facility] [place] [address] 26 Sep, 2013 [facility] [address] [id number] [address] [place] [address], [place] [address] 26 Sep, 2013 [facility] [address] [id number] [address] [place] [address], [place] [address] 17 Sep, 2013 [facility] [address] [id number] [address] [place] [address], [place] [address] 17 Sep, 2013 [facility] [address] [id number] [address] [place] [address], [place] [address] 15 May, 2013 [facility] [address] [id number] [address] [place] [address], [place] [address] 15 May, 2013 [facility] [address] [id number] [address] [place] [address], [place] [address] 15 May, 2013 [facility] [address] [id number] [address] [place] [address], [place] [address] 15 May, 2013 [facility] [address] [id number] [address] [place] [address], [place] [address] 10 May, 2013 [facility] [address] [id number] [address] [place] [address], [place] [address] 10 May, 2013 [facility] [address] [id number] [address] [place] [address], [place] [address] 09 May, 2013 [facility] [address] [id number] [address] [place] [address], [place] [address] 09 May, 2013 [facility] [address] [id number] [address] [place] [address], [place] [address] 04 May, 2013 [facility] [address] [id number] [address] [place] [address], [place] [address] 04 May, 2013 [facility] [address] [id number] [address] [place] [address], [place] [address] 30 Apr, 2013 [facility] [address] [id number] [address] [place] [address], [place] [address] Apr, [facility] [address] [id number] [facility] [place] [address] Apr, [facility] [address] [id number] [address] [place] [address], [place] [address] Apr, [facility] [address] [id number] [address] [place] [address], [place] [address] Apr, [facility] [address] [id number] [address] [place] [address], [place] [address] Apr, [facility] [address] [id number] [address] [place] [address], [place] [address] Apr, [facility] [address] [id number] [address] [place] [address], [place] [address] Apr, [facility] [address] [id number] [address] [place] [address], [place] [address] Apr, [facility] [address] [id number] [address] [place] [address], [place] [address] Apr, [facility] [address] [id number] [address] [place] [address], [place] [address] Apr, [facility] [address] [id number] [address] [place] [address], [place] [address] Apr, [facility] [address] [id number] [address] [place] [address], [place] [address] Apr, [facility] [address] [id number] [address] [place] [address], [place] [address] Apr, [facility] [address] [id number] [address] [place] [address], [place] [address] Apr, [facility] [address] [id number] [address] [place] [address], [place] [address] Mar, [facility] [address] [id number] [address] [place] [address], [place] [address] Mar, [facility] [address] [id number] [facility] [place] [address] Mar, 2013 [facility] [address] [id number] [facility] [place] [address] Mar, 2013 [facility] [address] [id number] [address] [place] [address], [place] [address] Mar, 2013 [facility] [address] [id number] [address] [place] [address], [place] [address] Mar, 2013 [facility] [address] [id number] [address] [place] [address], [place] [address] Mar, 2013 [facility] [address] [id number] [address] [place] [address], [place] [address] Mar, 2013 [facility] [address] [id number] [address] [place] [address], [place] [address] Mar, 2013 [facility] [address] [id number] [address] [place] [address], [place] [address] Mar, 2013 [facility] [address] [id number] [address] [place] [address], [place] [address] Mar, 2013 [facility] [address] [id number] [address] [place] [address], [place] [address] Mar, 2013 [facility] [address] [id number] [address] [place] [address], [place] [address] Mar, 2013 [facility] [address] [id number] [address] [place] [address], [place] [address] Mar, 2013 [facility] [address] [id number] [address] [place] [address], [place] [address] Mar, 2013 [facility] [address] [id number] [address] [place] [address], [place] [address] Mar, 2013 [facility] [address] [id number] [address] [place] [address], [place] [address] Mar, 2013 [facility] [address] [id number] [address] [place] [address], [place] [address] Mar, [facility] [address] [id number] [facility] [place] [address] Feb, [facility] [address] [id number] [facility] [place] [address] Feb, [facility] [address] [id number] [facility] [place] [address] Feb, [facility] [address] [id number] [address] [place] [address], [place] [address] Feb, [facility] [address] [id number] [facility] [place] [address] Feb, [facility] [address] [id number] [address] [place] [address], [place] [address] Feb, [facility] [address] [id number] [address] [place] [address], [place] [address] Feb, [facility] [address] [id number] [address] [place] [address], [place] [address] Feb, [facility] [address] [id number] [address] [place] [address], [place] [address] Feb, [facility] [address] [id number] [address] [place] [address], [place] [address] Feb, [facility] [address] [id number] [address] [place] [address], [place] [address] Feb, [facility] [address] [id number] [address] [place] [address], [place] [address] Feb, [facility] [address] [id number] [address] [place] [address], [place] [address] Feb, [facility] [address] [id number] [address] [place] [address], [place] [address] Feb, [facility] [address] [id number] [facility] [place] [address] January, [facility] [address] [id number] [facility] [place] [address] January, [facility] [address] [id number] [address] [place] [address], [place] [address] January, [facility] [address] [id number] [address] [place] [address], [place] [address] January, [facility] [address] [id number] [address] [place] [address], [place] [address] January, [facility] [address] [id number] [address] [place] [address], [place] [address] January, [facility] [address] [id number] [address] [place] [address], [place] [address] January, [facility] [address] [id number] [address] [place] [address], [place] [address] January, [facility] [address] [id number] [address] [place] [address], [place] [address] January, [facility] [address] [id number] [address] [place] [address], [place] [address] January, [facility] [address] [id number] [address] [place] [address], [place] [address] January, [facility] [address] [id number] [address] [place] [address], [place] [id number] January, [facility] [address] [id number] [address] [place] [address], [place] [address] January, [facility] [address] [id number] [address] [place] [address], [place] [address] January, [facility] [address] [id number] [address] [place] [address], [place] [address] Dec, [facility] [address] [id number] [address] [place] [address], [place] [address] Dec, [facility] [address] [id number] [address] [place] [address], [place] [address] Dec, [facility] [address] [id number] [address] [place] [address], [place] [address] Dec, [facility] [address] [id number] [address] [place] [address], [place] [address] Dec, [facility] [address] [id number] [address] [place] [address], [place] [address] Dec, [facility] [address] [id number] [address] [place] [address], [place] [address] Dec, [facility] [address] [id number] [address] [place] [address], [place] [address] Dec, [facility] [address] [id number] [address] [place] [address], [place] [address] Dec, [facility] [address] [id number] [address] [place] [address], [place] [address] Dec, [facility] [address] [id number] [address] [place] [address], [place] [address] Nov, [facility] [address] [id number] [address] [place] [address], [place] [address] Nov, [facility] [address] [id number] [address] [place] [address], [place] [address] Nov, [facility] [address] [id number] [address] [place] [address], [place] [address] Nov, [facility] [address] [id number] [address] [place] [address], [place] [address] Nov, [facility] [address] [id number] [address] [place] [address], [place] [address] Nov, [facility] [address] [id number] [address] [place] [address], [place] [address] Nov, [facility] [address] [id number] [address] [place] [address], [place] [address] Nov, [facility] [address] [id number] [address] [place] [address], [place] [address] Nov, [facility] [address] [id number] [facility] [place] [address] Nov, [facility] [address] [id number] [address] [place] [address], [place] [address] Oct, [facility] [address] [id number] [address] [place] [address], [place] [address] Oct, [facility] [address] [id number] [address] [place] [address], [place] [address] Oct, [facility] [address] [id number] [address] [place] [address], [place] [address] Oct, [facility] [address] [id number] [address] [place] [address], [place] [address] Oct, [facility] [address] [id number] [address] [place] [address], [place] [address] Oct, [facility] [address] [id number] [address] [place] [address], [place] [address] Oct, [facility] [address] [id number] [address] [place] [address], [place] [address] Oct, [facility] [address] [id number] [address] [place] [address], [place] [address] Oct, [facility] [address] [id number] [address] [place] [address], [place] [address] Oct, 2013 [facility] [address] [id number] [address] [place] [address], [place] [address] Oct, [facility] [address] [id number] [address] [place] [address], [place] [address] Oct, [facility] [address] [id number] [address] [place] [address], [place] [address] Oct, [facility] [address] [id number] [address] [place] [address], [place] [address] Oct, [facility] [address] [id number] [address] [place] [address], [place] [address] Sep, [facility] [address] [id number] [address] [place] [address], [place] [address] Sep, [facility] [address] [id number] [address] [place] [address], [place] [address] 15 Sep, 2013 [facility] [address] [id number] [address] [place] [address], [place] [address] 15 Sep, 2013 [facility] [address] [id number] [address] [place] [address], [place] [address] Sep, [facility] [address] [id number] [address] [place] [address], [place] [address] Sep, [facility] [address] [id number] [address] [place] [address], [place] [address] Sep, [facility] [address] [id number] [address] [place] [address], [place] [address] Sep, [facility] [address] [id number] [address] [place] [address], [place] [address] Sep, [facility] [address] [id number] [address] [place] [address], [place] [address] Sep, [facility] [address] [id number] [address] [place] [address], [place] [address] Aug, [facility] [address] [id number] [address] [place] [address], [place] [address] Aug, [facility] [address] [id number] [address] [place] [address], [place] [address] Jul, [facility] [address] [id number] [address] [place] [address], [place] [address] Jul, [facility] [address] [id number] [address] [place] [address], [place] [address] Jul, [facility] [address] [id number] [address] [place] [address], [place] [address] 13 Jul, 2013 [facility] [address] [id number] [address] [place] [address], [place] [address] 13 Jul, 2013 [facility] [address] [id number] [address] [place] [address], [place] [address] Jul, [facility] [address] [id number] [address] [place] [address], [place] [address] Jul, [facility] [address] [id number] [address] [place] [address], [place] [address] Jul, [facility] [address] [id number] [address] [place] [address], [place] [address] Jul, [facility] [address] [id number] [address] [place] [address], [place] [address] Jul, [facility] [address] [id number] [address] [place] [address], [place] [address] Jul, [facility] [address] [id number] [address] [place] [address], [place] [address] Jul, [facility] [address] [id number] [address] [place] [address], [place] [address] Jul, [facility] [address] [id number] [address] [place] [address], [place] [address] Jul, [facility] [address] [id number] [address] [place] [address], [place] [address] Jul, [facility] [address] [id number] [address] [place] [address], [place] [address] Jul, [facility] [address] [id number] [address] [place] [address], [place] [address] Jul, [facility] [address] [id number] [address] [place] [address], [place] [address] Jul, [facility] [address] [id number] [address] [place] [address], [place] [address] Jul, [facility] [address] [id number] [address] [place] [address], [place] [address] 16 Jun, 2012 [facility] [address] [id number] [address] [place] [address], [place] [address] 16 Jun, 2012 [facility] [address] [id number] [address] [place] [address], [place] [address] 16 Jun, 2012 [facility] [address] [id number] [address] [place] [address], [place] [address] 16 Jun, 2012 [facility] [address] [id number] [address] [place] [address], [place] [address] 16 Jun, 2012 [facility] [address] [id number] [address] [place] [address], [place] [address] 16 Jun, 2012 [facility] [address] [id number] [address] [place] [address], [place] [address] 10 Jun, 2012 [facility] [address] [id number] [address] [place] [address], [place] [address] 10 Jun, 2013 [facility] [address] [id number] [address] [place] [address], [place] [address] Jun, [facility] [address] [id number] [address] [place] [address], [place] [address] 09 Jun, 2013 [facility] [address] [id number] [address] [place] [address], [place] [address] Jun, [facility] [address] [id number] [address] [place] [address], [place] [address] 26 May, 2012 [facility] [address] [id number] [address] [place] [address], [place] [address] 25 Sep, 2012 [facility] [address] [id number] [address] [place] [address], [place] [address] 19 Sep, 2012 [facility] [address] [id number] [address] [place] [address], [place] [address] 17 Sep, 2012 [facility] [address] [id number] [address] [place] [address] May, [facility] [address] [id number] [address] [place] [address], [place] [address] May, [facility] [address] [id number] [address] [place] [address], [place] [address] May, [facility] [address] [id number] [address] [place] [address], [place] [address] May, [facility] [address] [id number] [address] [place] [address], [place] [address] Apr, [facility] [address] [id number] [address] [place] [address], [place] [address] Apr, [facility] [address] [id number] [address] [place] [address], [place] [address] Apr, [facility] [address] [id number] [address] [place] [address], [place] [address] Apr, [facility] [address] [id number] [address] [place] [address], [place] [address] Apr, [facility] [address] [id number] [address] [place] [address], [place] [address] Mar, [facility] [address] [id number] [address] [place] [address], [place] [address] Mar, [facility] [address] [id number] [address] [place] [address], [place] [address] Mar, [facility] [address] [id number] [address] [place] [address], [place] [address] Mar, [facility] [address] [id number] [address] [place] [address], [place] [address] Mar, [facility] [address] [id number] [address] [place] [address], [place] [address] Mar, [facility] [address] [id number] [address] [place] [address], [place] [address] Mar, [facility] [address] [id number] [address] [place] [address], [place] [address] Mar, [facility] [address] [id number] [address] [place] [address], [place] [address] Feb, [facility] [address] [id number] [address] [place] [address], [place] [address] Feb, [facility] [address] [id number] [address] [place] [address], [place] [address] January, [facility] [address] [id number] [address] [place] [address], [place] [address] January, [facility] [address] [id number] [address] [place] [address], [place] [address] Dec, [facility] [address] [id number] [address] [place] [address], [place] [address] Dec, [facility] [address] [id number] [address] [place] [address], [place] [address] Nov, [facility] [address] [id number] [address] [place] [address], [place] [address] Nov, [facility] [address] [id number] [address] [place] [address], [place] [address] Nov, [facility] [address] [id number] [address] [place] [address], [place] [address] Nov, [facility] [address] [id number] [address] [place] [address], [place] [address] Oct, [facility] [address] [id number] [address] [place] [address], [place] [address] Oct, [facility] [address] [id number] [address] [place] [address], [place] [address] Oct, [facility] [address] [id number] [address] [place] [address], [place] [address] Oct, [facility] [address] [id number] [address] [place] [address], [place] [address] 16 Oct, 2012 [facility] [address] [id number] [address] [place] [address], [place] [address] 14 Oct, 2012 [facility] [address] [id number] [address] [place] [address], [place] [address] 08 Oct, 2012 [facility] [address] [id number] [address] [place] [address], [place] [address] 07 Oct, 2012 [facility] [address] [id number] [address] [place] [address], [place] [address] 03 Oct, 2012 [facility] [address] [id number] [address] [place] [address], [place] [address] Sep, [facility] [address] [id number] [address] [place] [address], [place] [address] Sep, [facility] [address] [id number] [address] [place] [address], [place] [address] Sep, [facility] [address] [id number] [address] [place] [address], [place] [address] Sep, [facility] [address] [id number] [address] [place] [address], [place] [address] Sep, [facility] [address] [id number] [address] [place] [address], [place] [address] Sep, [facility] [address] [id number] [address] [place] [address], [place] [address] Sep, [facility] [address] [id number] [address] [place] [address], [place] [address] Sep, [facility] [address] [id number] [address] [place] [address], [place] [address] Aug, [facility] [address] [id number] [address] [place] [address], [place] [address] Aug, [facility] [address] [id number] [address] [place] [address], [place] [address] Aug, [facility] [address] [id number] [address] [place] [address], [place] [address] Aug, [facility] [address] [id number] [address] [place] [address], [place] [address] Aug, [facility] [address] [id number] [address] [place] [address], [place] [address] Aug, [facility] [address] [id number] [address] [place] [address], [place] [address] Aug, [facility] [address] [id number] [address] [place] [address], [place] [address] Aug, [facility] [address] [id number] [address] [place] [address], [place] [address] Jul, [facility] [address] [id number] [address] [place] [address], [place] [address] Jul, [facility] [address] [id number] [address] [place] [address], [place] [address] Jul, [facility] [address] [id number] [address] [place] [address], [place] [address] Jul, [facility] [address] [id number] [address] [place] [address], [place] [address] Jul, [facility] [address] [id number] [address] [place] [address], [place] [address] Jul, [facility] [address] [id number] [address] [place] [address], [place] [address] Jun, [facility] [address] [id number] [address] [place] [address], [place] [address] Jun, [facility] [address] [id number] [address] [place] [address], [place] [address] Jun, [facility] [address] [id number] [address] [place] [address], [place] [address] Jun, [facility] [address] [id number] [address] [place] [address], [place] [address] Jun, [facility] [address] [id number] [address] [place] [address], [place] [address] Jun, [facility] [address] [id number] [address] [place] [address], [place] [address] Jun, [facility] [address] [id number] [address] [place] [address], [place] [address] Jun, [facility] [address] [id number] [address] [place] [address], [place] [address] Jun, [facility] [address] [id number] [address] [place] [address], [place] [address] 26 May, 2012 [facility] [address] [id number] [address] [place] [address], [place] [address] 24 May, 2012 [facility] [address] [id number] [address] [place] [address], [place] [address] 18 May, 2012 [facility] [address] [id number] [address] [place] [address], [place] [address] 30 Apr, 2012 [facility] [address] [id number] [address] [place] [address], [place] [address] Apr, [facility] [address] [id number] [address] [place] [address], [place] [address] Apr, [facility] [address] [id number] [address] [place] [address], [place] [address] Apr, [facility] [address] [id number] [address] [place] [address], [place] [address] Apr, [facility] [address] [id number] [address] [place] [address], [place] [address] Apr, [facility] [address] [id number] [address] [place] [address], [place] [address] Mar, [facility] [address] [id number] [address] [place] [address], [place] [address] Mar, [facility] [address] [id number] [address] [place] [address] 05 Mar, 2012 [facility] [address] [id number] [address] [place] [address], [place] [address] Mar, [facility] [address] [id number] [address] [place] [address], [place] [address] Feb, [facility] [address] [id number] [address] [place] [address], [place] [address] Feb, [facility] [address] [id number] [address] [place] [address], [place] [address] Feb, [facility] [address] [id number] [address] [place] [address], [place] [address] Feb, [facility] [address] [id number] [address] [place] [address], [place] [address] Feb, [facility] [address] [id number] [address] [place] [address], [place] [address] January, [facility] [address] [id number] [address] [place] [address], [place] [address] January, [facility] [address] [id number] [address] [place] [address], [place] [address] January, [facility] [address] [id number] [address] [place] [address], [place] [address] January, [facility] [address] [id number] [address] [place] [address], [place] [address] January, [facility] [address] [id number] [address] [place] [address], [place] [address] January, [facility] [address] [id number] [address] [place] [address], [place] [address] Dec, [facility] [address] [id number] [address] [place] [address], [place] [address] Dec, [facility] [address] [id number] [address] [place] [address], [place] [address] Dec, [facility] [address] [id number] [address] [place] [address], [place] [address] 09 Dec, 2011 [facility] [address] [id number] [address] [place] [address], [place] [address] 06 Dec, 2011 [facility] [address] [id number] [address] [place] [address], [place] [address] 27 Nov, 2011 [facility] [address] [id number] [address] [place] [address], [place] [address] 14 Nov, 2011 [facility] [address] [id number] [address] [place] [address], [place] [address] Nov, [facility] [address] [id number] [address] [place] [address], [place] [address] 07 Nov, 2011 [facility] [address] [id number] [address] [place] [address], [place] [address] 29 Oct, 2011 [facility] [address] [id number] [address] [place] [address], [place] [address] 28 Oct, 2011 [facility] [address] [id number] [address] [place] [address], [place] [address] 24 Oct, 2011 [facility] [address] [id number] [address] [place] [address], [place] [address] 13 Oct, 2011 [facility] [address] [id number] [address] [place] [address], [place] [address] 08 Oct, 2011 [facility] [address] [id number] [address] [place] [address], [place] [address] Sep, [facility] [address] [id number] [address] [place] [address], [place] [address] Sep, [facility] [address] [id number] [address] [place] [address], [place] [address] Sep, [facility] [address] [id number] [address] [place] [address], [place] [address] Sep, [facility] [address] [id number] [address] [place] [address] Sep, [facility] [address] [id number] [address] [place] [address], [place] [address] Sep, [facility] [address] [id number] [address] [place] [address], [place] [address] Aug, [facility] [address] [id number] [address] [place] [address], [place] [address] Aug, [facility] [address] [id number] [address] [place] [address], [place] [address] Aug, [facility] [address] [id number] [address] [place] [address], [place] [address] Jul, [facility] [address] [id number] [address] [place] [address], [place] [address] Jul, [facility] [address] [id number] [address] [place] [address], [place] [address] Jul, [facility] [address] [id number] [address] [place] [address], [place] [address] Jul, [facility] [address] [id number] [address] [place] [address] Jun, [facility] [address] [id number] [address] [place] [address], [place] [address] Jun, [facility] [address] [id number] [address] [place] [address] Jun, [facility] [address] [id number] [address] [place] [address] Jun, [facility] [address] [id number] [address] [place] [address], [place] [address] Jun, [facility] [address] [id number] [address] [place] [address], [place] [address] Jun, [facility] [address] [address] [id number] [address] [place] [address], [place] [address] Mar, [facility] [address] [id number] [address] [place] [address], [place] [address] 18 Dec, 2010 [facility] [address] [id number] [address] [place] [address], [place] [address] 11 Dec, 2010 [facility] [address] [id number] [address] [place] [address], [place] [address] 18 Nov, 2010 [facility] [address] [id number] [address] [place] [address], [place] [address] 16 Nov, 2010 [facility] [address] [id number] [address] [place] [address], [place] [address] 10 Sep, 2010 [facility] [address] [id number] [address] [place] [address], [place] [address] 31 Aug, 2010 [facility] [address] [id number] [address] [place] [address], [place] [address] 29 Aug, 2010 [facility] [address] [id number] [address] [place] [address], [place] [address] 29 Aug, 2010 [facility] [address] [id number] [address] [place] [address], [place] [address] 29 Aug, 2010 [facility] [address] [id number] [address] [place] [address], [place] [address] 27 Aug, 2010 [facility] [address] [id number] [address] [place] [address], [place] [address] 14 Aug, 2010 [facility] [address] [id number] [address] [place] [address], [place] [address] 08 Aug, 2010 [facility] [address] [id number] [address] [place] [address], [place] [address] 08 Aug, 2010 [facility] [address] [id number] [address] [place] [address], [place] [address] 07 Aug, 2010 [facility] [address] [id number] [address] [place] [address], [place] [address] 06 Aug, 2010 [facility] [address] [id number] [address] [place] [address], [place] [address] Aug, [facility] [address] [id number] [address] [place] [address], [place] [address] Aug, [facility] [address] [id number] [address] [place] [address], [place] [address] Jul, [facility] [address] [id number] [address] [place] [address], [place] [address] Jul, [facility] [address] [id number] [address] [place] [address], [place] [address] Jul, [facility] [address] [id number] [address] [place] [address], [place] [address] Jul, [facility] [address] [id number] [address] [place] [address], [place] [address] Jul, [facility] [address] [id number] [address] [place] [address], [place] [address] Jul, [facility] [address] [id number] [address] [place] [address], [place] [address] Jun, [facility] [address] [id number] [address] [place] [address], [place] [address] Jun, [facility] [address] [id number] [address] [place] [address], [place] [address] Jun, [facility] [address] [id number] [address] [place] [address], [place] [address] Jun, [facility] [address] [id number] [address] [place] [address], [place] [address] Apr, [facility] [address] [id number] [address] [place] [address], [place] [address] Mar, [facility] [address] [id number] [address] [place] [address], [place] [address] Feb, [facility] [address] [id number] [address] [place] [address], [place] [address] January, [facility] [address] [id number] [address] [place] [address] 15 Dec, 2009 [facility] [address] [id number] [address] [place] [address], [place] [address] 11 Nov, 2009 [facility] [address] [id number] [address] [place] [address] 31 Aug, 2009 [facility] [address] [id number] [address] [place] [address] Aug, [facility] [address] [id number] [address] [place] [address] Aug, [facility] [address] [id number] [address] [place] [address] Jul, [facility] [address] [id number] [address] [place] [address] Jul, [facility] [address] [id number] [address] [place] [address] Jul, [facility] [address] [id number] [address] [place] [address] 30 Jun, 2009 [facility] [address] [id number] [address] [place] [address] 29 Jun, 2009 [facility] [address] [id number] [address] [place] [address] Jun, [facility] [address] [id number] [address] [place] [address] Jun, [facility] [address] [id number] [address] [place] [address] Jun, [facility] [address] [id number] [address] [place] [address] Jun, [facility] [address] [id number] [address] [place] [address] Apr, [facility] [address] [id number] [address] [place] [address] Apr, [facility] [address] [facility] [id number] [address] [place] [address] Feb, [facility] [address] [facility] [id number] [address] [place] [address] January, [facility] [address] [facility] [id number] [address] [place] [address] Dec, IMMUNIZATIONS No Known Immunizations SOCIAL HISTORY [...] obesity Medical History skin cancer-basal cell R voodoo (removed ) Medical History Arthritis Medical History [...] ([facility]) 2009 Surgical History colonoscopy 2009 ([facility]), 2013 ([place] ) Surgical History heart cath: CAD w/ [...] History inability to urinate 09/16/15 Hospitalization History [facility] ea rly 2000's Hospitalization History hyperkalemia 10/2017 Hospitalization History fluid in lung
--- OUTSIDE RECORDS SUMMARY | 2020-03-01 16:35 | XMS REPORT ---
Author Author Michele WASHBURN Organization 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 Name Role Phone NOEMI WASHBURN Unavailable PROBLEMS Type Condition ICD9-CM Code FQV94-GU Code Onset Dates Condition S tatus SNOMED Code Problem Leukocytosis D72.829 Active 0417284 06 Problem Bipolar I disorder, most recent episode (or curr ent) mixed, moderate F31.62 Active 54754283 Problem Reactive airway disease J45.909 Active 405293537036 Problem Anxiety F41.9 Active 95729355 Problem Insomnia, unspecified type G47.00 Act sharon 447124344 Problem Essential hypertension I10 Active 18492560 Problem Morbid obesity E66.01 Active 91473 6002 Problem Skin cancer C44.90 Active 11857507 7 Problem DM neuro manif type II E11.49 Active 39270219 Problem Mild cognitive impairment G31.84 Acti ve 690324569 Problem Benign prostatic hyperplasia with lower urinary tract symptoms, unspecified morphology N40.1 Active 54087 6007 Problem Chronic pain G89.29 Active 4177095 1 Problem Diabetes E11.9 Active 89914585 Problem Retinal edema H35.81 Active 659955 6 Problem Anemia of chronic illness D63.8 Acti ve 470841299 Problem Falling R29.6 Active 149801746 Problem Pressure ulcer of other site, stage 3 L89.893 Active 692508821 Problem 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 Active 357580918 Problem Eye exam abnormal R93.8 Active 16 8231030 Problem Pure hypercholesterolemia E78.00 Acti ve 897545551 Problem Dysuria R30.0 Active 06917866 Problem Bipolar disorder, in partial remission, most rec ent episode depressed F31.75 Active 72241793 Problem Hypokalemia E87.6 Active 89251053 Problem Other iron deficiency anemia D50.8 A ctive 31916209 Problem Eustachian tube dysfunction, unspecified laterality H69.80 Active 54167782 Problem Primary osteoarthritis of right knee M17.11 Active [id number] Problem Cough R05 Active 92496045 Problem Bipolar disorder F31.9 Active 137 88048 Problem Chronic diastolic (congestive) heart failure I50.3 2 Active 932217944 Problem Psychophysiological insomnia F51.04 A ctive 635445882 Problem Gastroesophageal reflux disease without esophagitis K21.9 Active 713589724 Problem Polyneuropathy associated with underlying disease G63 Active 898498395 Problem Other secondary acute gout, 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 0 Active 605674658 Problem Diabetic polyneuropathy associated with type 2 d iabetes mellitus E11.42 Active 90359320 Problem Chronic lymphocytic leukemia C91.10 A ctive 22638582 Problem Bilateral primary osteoarthritis of knee M17.0 Active 684142549 Problem Type 2 diabetes mellitus with diabetic neuropathy, uns pecified E11.40 Active 38793934 Problem custodial (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 Z79.4 Active 622373260 Problem Lymphocytosis D72.820 Active 154677 09 Problem Mood disorder F39 Active 483680 05 Problem Bipolar I disorder, most recent episode depressed, moderat e F31.32 Active 820052065 ALLERGIES No Information ENCOUNTERS Encounter Location Date Diagnosis [facility] [address] [facility] [id number] [address] [place] [address] Dec, [facility] [address] [facility] [id number] [address] [place] [phone] Dec, [facility] [address] [facility] [id number] [address] [place] [phone] Dec, [facility] [address] [facility] [id number] [address] [place] [phone] Dec, Mood disorder F39 [facility] [address] [facility] [id number] [address] [place] [address] Nov, Other secondary acute gout, 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 [facility] [address] [facility] [id number] [address] [place] [phone] 25 Nov, 2019 Gastroesophageal reflux dise ase without esophagitis K21.9 [facility] [address] [id number] [address] [place] [phone] Nov, Chronic pain G89.29 [facility] [address] [id number] [address] [place] [address] Nov, Bipolar I disorder, most rec ent episode depressed, moderate F31.32 ; Anxiety F41.9 and Mild cognitive impairment G31.84 [facility] [address] [facility] [id number] [address] [place] [phone] Nov, [facility] [address] [id number] [address] [place] [phone] Nov, Syncope, unspecified syncope type R55 [facility] [address] [id number] [address] [place] [phone] Nov, Mood disorder F39 [facility] [address] [facility] [id number] [address] [place] [address] Oct, Chronic pain G89.29 [facility] [address] [id number] [address] [place] [phone] Oct, [facility] [address] [id number] [address] [place] [phone] Oct, Mood disorder F39 [facility] [address] [facility] [id number] [address] [place] [phone] Oct, [facility] [address] [facility] [id number] [address] [place] [phone] Oct, Bipolar disorder, in partial remission, most recent episode depressed F31.75 and Mild cognitive impairment G31.84 [facility] [address] [id number] [address] [place] [phone] Oct, Mood disorder F39 [facility] [address] [facility] [id number] [address] [place] [phone] Sep, [facility] [address] [facility] [id number] [address] [place] [address] Sep, Mood disorder F39 [facility] [address] [id number] [address] [place] [phone] 13 Sep, 2019 Bipolar disorder, in partial remission, most recent episode depressed F31.75 and Mild cognitive impairment G31.84 [facility] [address] [id number] [address] [place] [phone] 06 Sep, [address] [facility] [address] [id number] [address] [place] [phone] Sep, [facility] [address] [id number] [address] [place] [phone] Sep, Mood disorder F39 [facility] [address] [id number] [address] [place] [phone] Sep, [facility] [address] [id number] [address] [place] [phone] Aug, Mood disorder F39 [facility] [address] [id number] [address] [place] [phone] Aug, [facility] [address] [id number] [address] [place] [phone] Aug, [facility] [address] [id number] [address] [place] [phone] Aug, [facility] [address] [id number] [address] [place] [phone] Aug, [facility] [address] [id number] [address] [place] [phone] Aug, [facility] [address] [id number] [address] [place] [phone] Aug, [facility] [address] [id number] [address] [place] [phone] Aug, [facility] [address] [id number] [address] [place] [phone] Aug, Essential hypertension I10 [facility] [address] [id number] [address] [place] [phone] Aug, Bipolar disorder, in partial remission, most recent episode depressed F31.75 and Mild cognitive impairment G31.84 [facility] [address] [id number] [address] [place] [phone] Aug, Mood disorder F39 [facility] [address] [id number] [address] [place] [phone] Aug, [facility] [address] [id number] [address] [place] [address] Aug, Bipolar disorder, in partial remission, most recent episode depressed F31.75 and Mild cognitive impairment G31.84 [facility] [address] [id number] [address] [place] [phone] Jul, Bipolar disorder, in partial remission, most recent episode depressed F31.75 and Mild cognitive impairment G31.84 [facility] [address] [id number] [address] [place] [phone] Jul, Psychophysiological insomnia F51.04 [facility] [address] [id number] [address] [place] [phone] Jul, [facility] [address] [id number] [address] [place] [phone] Jul, [facility] [address] [id number] [address] [place] [phone] Jul, [facility] [address] [id number] [address] [place] [phone] Jul, [facility] [address] [id number] [address] [place] [phone] Jul, [facility] [address] [id number] [address] [place] [address] Jul, [facility] [address] [id number] [address] [place] [phone] Jul, Bipolar disorder, in partial remission, most recent episode depressed F31.75 and Mild cognitive impairment G31.84 [place] [address] [facility] [id number] [address] [place] [address] Jul, Chronic pain G89.29 ; Diabet es E11.9 ; Essential hypertension I10 ; Ill feeling R68.89 ; Local infection of the skin and subcutaneous tissue, unspecified L08.9 and Other injury of unspecified body region, initial encounter T14.8XXA [place] [address] [facility] [id number] [address] [place] [phone] Jun, Bipolar disorder, in partial remission, most recent episode depressed F31.75 and Mild cognitive impairment G31.84 [place] [address] [facility] [id number] [address] [place] [address] Jun, [place] [address] [facility] [id number] [address] [place] [phone] Jun, Bipolar disorder, in partial remission, most recent episode depressed F31.75 and Mild cognitive impairment G31.84 [place] [address] [facility] [id number] [address] [place] [address] Jun, Psychophysiological insomnia F51.04 [place] [address] [facility] [id number] [address] [place] [phone] Jun, Psychophysiological insomnia F51.04 ; Chronic pain G89.29 ; Bipolar I disorder, most recent episode (or current) mixed, moderate F31.62 ; 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 ; Polyneuropathy associated with underlying disease G63 ; Type 2 diabetes mellitus with diabetic neuropathy, unspecified E11.40 ; custodial (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 Z79.4 and Hyperglycemia R73.9 [place] [address] [facility] [id number] [address] [place] [phone] Jun, Bipolar disorder, in partial remission, most recent episode depressed F31.75 and Mild cognitive impairment G31.84 [place] [address] [facility] [id number] [address] [place] [phone] Jun, [place] [address] [id number] [address] [place] [phone] Jun, Bipolar disorder F31.9 [facility] [address] [facility] [id number] [address] [place] [phone] May, Bipolar disorder, in partial remission, most recent episode depressed F31.75 and Mild cognitive impairment G31.84 [facility] [address] [id number] [address] [place] [phone] May, [facility] [address] [facility] [id number] [address] [place] [address] Apr, Chronic pain G89.29 and Bipo lar disorder F31.9 [facility] [address] [facility] [id number] [address] [place] [address] Mar, Bipolar disorder F31.9 and C hronic pain G89.29 [facility] [address] [facility] [id number] [address] [place] [phone] Feb, Bipolar disorder F31.9 [facility] [address] [id number] [address] [place] [address] Feb, Cellulitis of right upper ex tremity L03.113 and Skin abrasion T14.8XXA [facility] [address] [id number] [address] [place] [phone] Feb, Bipolar disorder, in partial remission, most recent episode depressed F31.75 and Mild cognitive impairment G31.84 [facility] [address] [facility] [id number] [address] [place] [address] Feb, Chronic pain G89.29 [facility] [address] [id number] [address] [place] [address] Feb, Bipolar disorder, in partial remission, most recent episode depressed F31.75 and Mild cognitive impairment G31.84 [facility] [address] [facility] [id number] [address] [place] [phone] January, Bipolar disorder, in partial remission, most recent episode depressed F31.75 and Mild cognitive impairment G31.84 [facility] [address] [id number] [address] [place] [phone] 16 Jan, 2019 Chronic pain G89.29 and Bipo lar disorder F31.9 [facility] [address] [id number] [address] [place] [phone] January, Bipolar disorder, in partial remission, most recent episode depressed F31.75 and Mild cognitive impairment G31.84 [facility] [address] [id number] [address] [place] [phone] Dec, [facility] [address] [id number] [address] [place] [address] Dec, Chronic pain G89.29 and Bipo lar disorder F31.9 [facility] [address] [id number] [address] [place] [phone] Dec, Edema of both lower extremit ies R60.0 [facility] [address] [id number] [address] [place] [phone] Dec, Bipolar disorder F31.9 [facility] [address] [id number] [address] [place] [phone] Dec, Bipolar disorder, in partial remission, most recent episode depressed F31.75 and Mild cognitive impairment G31.84 [facility] [address] [id number] [address] [place] [phone] Nov, [facility] [address] [id number] [address] [place] [phone] Nov, Chronic pain G89.29 [facility] [address] [id number] [address] [place] [phone] Nov, Bipolar disorder, in partial remission, most recent episode depressed F31.75 and Mild cognitive impairment G31.84 [facility] [address] [id number] [address] [place] [address] Nov, Bipolar disorder F31.9 [facility] [address] [id number] [address] [place] [phone] 04 Nov, 2018 Encounter for Medicare annua [...] unspecified morphology N40.1 and Essential hypertension I10 [address] [id number] 21 Oct, 2018 Chronic pain G89.[address] [address] 18 Oct, 2018 Diabetes E11.9 [place] [id number] [address] [place] [phone] Oct, Bipolar I disorder, most rec ent episode (or current) mixed, moderate F31.62 and Mild cognitive impairment G31.84 [place] [id number] [address] [place] [phone] 06 Oct, 2018 Bipolar I disorder, most rec ent episode (or current) mixed, moderate F31.62 and Mild cognitive impairment G31.84 [place] [id number] [address] [place] [address] Sep, Bipolar I disorder, most rec ent episode (or current) mixed, moderate F31.62 and Mild cognitive impairment G31.84 [place] [id number] [address] [place] [address] Sep, [address] [address] Sep, Diabetes E11.9 ; Hypoxia R09 .02 ; Hyperglycemia R73.9 ; Therapeutic drug monitoring Z51.81 ; BMI 50.0-59.9, adult Z68.43 [address] Skin [address] C44.90 [facility] [address] [id number] [address] [place] [address] Sep, Chronic pain G89.29 [facility] [address] [id number] [address] [place] [phone] Sep, Bipolar I disorder, most rec ent episode (or current) mixed, moderate F31.62 [facility] [address] [id number] [address] [place] [phone] Sep, [facility] [address] [id number] [address] [place] [address] Sep, [facility] [address] [id number] [address] [place] [id number] Aug, Chronic pain G89.29 [facility] [address] [id number] [address] [place] [address] Aug, Bipolar I disorder, most rec ent episode (or current) mixed, moderate F31.62 [facility] [address] [id number] [address] [place] [phone] Aug, Bipolar I disorder, most rec ent episode (or current) mixed, moderate F31.62 and Mild cognitive impairment G31.84 [facility] [address] [id number] [address] [place] [address] Jul, [facility] [address] [id number] [address] [place] [address] Jul, Chronic pain G89.29 [facility] [address] [id number] [address] [place] [phone] Jul, Bipolar I disorder, most rec ent episode (or current) mixed, moderate F31.62 and Mild cognitive impairment G31.84 [facility] [address] [id number] [address] [place] [address] Jul, Bipolar I disorder, most rec ent episode (or current) mixed, moderate F31.62 and MCI (mild cognitive impairment) G31.84 [facility] [address] [id number] [address] [place] [address] Jul, [facility] [address] [id number] [address] [place] [phone] Jul, [facility] [address] [id number] [address] [place] [address] Jul, Bipolar I disorder, most rec ent episode (or current) mixed, moderate F31.62 [facility] [address] [id number] [address] [place] [address] Jul, Chronic pain G89.29 [facility] [address] [id number] [address] [place] [address] Jun, Bipolar I disorder, most rec ent episode (or current) mixed, moderate F31.62 [facility] [address] [facility] [id number] [address] [place] [phone] Jun, Pre-procedure lab exam Z01.[address] [facility] [address] [id number] [address] [place] [phone] Jun, [facility] [address] [id number] [place] [id number] Jun, [facility] [address] [facility] [id number] [address] [place] [phone] Jun, [facility] [address] [facility] [id number] [address] [place] [address] Jun, Forgetfulness R68.89 ; Pre-s yncope R55 ; Localized edema R60.0 ; Other iron deficiency anemia D50.8 and BMI 50.0-59.9, adult Z68.43 [facility] [address] [id number] [address] [place] [phone] Jun, Chronic pain G89.29 [facility] [address] [facility] [id number] [address] [place] [address] Jun, Chronic pain G89.29 [place] [address] [place] [id number] [address] [place] [address] Jun, Bipolar I disorder, most rec ent episode (or current) mixed, moderate F31.62 [place] [address] [address] 07 May, 2018 Chronic pain G89.29 [place] [address] [address] Apr, [place] [address] [address] Apr, Chronic pain G89.29 [place] [address] [address] Apr, Primary osteoarthritis of ri ght knee M17.11 [place] [address] [address] Mar, [place] [address] [address] Mar, BMI 50.0-59.9, adult Z68.43 and Bipolar disorder, in partial remission, most recent episode depressed F31.75 [place] [address] [address] Mar, Diabetes E11.9 ; Pure hyperc holesterolemia E78.00 ; Essential hypertension I10 ; Nausea with vomiting, unspecified R11.2 and Headache, unspecified headache type R51 [place] [address] [address] Mar, Bipolar I disorder, most rec ent episode (or current) mixed, moderate F31.62 [place] [address] [address] Mar, Bipolar I disorder, most rec ent episode (or current) mixed, moderate F31.62 [place] [address] [address] Mar, Chronic pain G89.29 [facility] [address] [id number] [address] [place] [address] Mar, Bipolar I disorder, most rec ent episode (or current) mixed, moderate F31.62 [facility] [address] [id number] [address] [place] [phone] Feb, Bipolar I disorder, most rec ent episode (or current) mixed, moderate F31.62 [facility] [address] [facility] [id number] [address] [place] [address] Feb, Chronic pain G89.29 [facility] [address] [id number] [address] [place] [address] Feb, Decubitus ulcer of right josselin t, stage 3 L89.893 and BMI 50.0-59.[address], [address] [facility] [address] [facility] [id number] [address] [place] [address] Feb, Bipolar I disorder, most rec ent episode (or current) mixed, moderate F31.62 [facility] [address] [facility] [id number] [address] [place] [phone] Feb, [facility] [address] [facility] [id number] [address] [place] [id number] January, [facility] [address] [facility] [id number] [address] [place] [phone] January, Chronic pain G89.29 [facility] [address] [facility] [id number] [address] [place] [phone] January, Bipolar I disorder, most rec ent episode (or current) mixed, moderate F31.62 [facility] [address] [facility] [id number] [address] [place] [id number] January, Bipolar I disorder, most rec ent episode (or current) mixed, moderate F31.62 [facility] [address] [facility] [id number] [address] [place] [phone] Dec, Bipolar I disorder, most rec ent episode (or current) mixed, moderate F31.62 and BMI 50.0-59.9, adult Z68.43 [place] [address] [facility] [id number] [address] [place] [phone] Dec, Bipolar I disorder, most rec ent episode (or current) mixed, moderate F31.62 [place] [address] [place] [id number] [address] [place] [phone] Dec, Chronic pain G89.29 [place] [address] [facility] [id number] [address] [place] [phone] Dec, DM neuro manif type II E11.4 9 ; Right flank pain R10.9 ; 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 ; Encounter for medication monitoring Z51.81 and BMI 50.0-59.9, adult Z68.43 [place] [address] [place] [id number] [address] [place] [phone] Dec, Bipolar I disorder, most rec ent episode (or current) mixed, moderate F31.62 [place] [address] [place] [id number] [address] [place] [phone] Nov, Bipolar I disorder, most rec ent episode (or current) mixed, moderate F31.62 [place] [address] [place] [id number] [address] [place] [phone] Nov, Chronic pain G89.29 [place] [address] [place] [id number] [address] [place] [address] Nov, Bipolar I disorder, most rec ent episode (or current) mixed, moderate F31.62 [place] [address] [facility] [id number] [address] [place] [address] Nov, Hypokalemia E87.6 [place] [address] [facility] [id number] [address] [place] [phone] Nov, Bipolar I disorder, most rec ent episode (or current) mixed, moderate F31.62 [place] [address] [facility] [id number] [address] [place] [phone] Oct, Chronic pain G89.29 [facility] [address] [facility] [id number] [address] [place] [phone] Oct, BMI 50.0-59.9, adult Z68.43 and Bipolar I disorder, most recent episode (or current) mixed, moderate F31.62 [place] [address] [place] [id number] [address] [place] [phone] Oct, Bipolar I disorder, most rec ent episode (or current) mixed, moderate F31.62 [place] [address] [facility] [id number] [address] [place] [phone] Oct, [place] [address] [place] [id number] [place] [phone] Oct, Hypokalemia E87.6 [place] [address] [place] [id number] [place] [phone] Oct, DM neuro manif type II E11.4 9 [place] [id number] [facility] [id number] [address] [place] [phone] Oct, Bipolar I disorder, most rec ent episode (or current) mixed, moderate F31.62 [place] [address] [facility] [id number] [address] [place] [phone] Oct, Bipolar I disorder, most rec ent episode (or current) mixed, moderate F31.62 [place] [address] [place] [id number] [address] [place] [phone] 14 Oct, 2017 Hyperkalemia E87.5 ; Falling R29.6 ; BMI 50.0-59.9, adult Z68.43 and Acute left ankle pain M25.572 [facility] [address] [place] [id number] [address] [place] [phone] Oct, DM neuro manif type II E11.[address] [facility] [address] [place] [id number] [address] [place] [phone] Oct, [place] [id number] [place] [phone] Sep, Chronic pain G89.29 [place] [address] [place] [id number] [address] [place] [phone] Sep, [place] [address] [place] [id number] [place] [address] Sep, Bilateral primary osteoarthr itis of knee M17.0 [place] [address] [place] [id number] [place] [address] Sep, Generalized edema R60.1 [place] [address] [address] Sep, Bipolar I disorder, most rec ent episode (or current) mixed, moderate F31.62 [place] [address] [address] Sep, Hypoxia R09.02 ; Other hyper volemia E87.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 [address] [place] [id number] [address] [place] [phone] Aug, [facility] [address] [facility] [id number] [address] [place] [phone] Aug, Bipolar I disorder, most rec ent episode (or current) mixed, moderate F31.62 [place] [address] [place] [id number] [address] [place] [phone] Aug, Bipolar I disorder, most rec ent episode (or current) mixed, moderate F31.62 [place] [address] [facility] [id number] [address] [place] [phone] Aug, Chronic pain G89.29 [place] [address] [place] [id number] [address] [place] [phone] Jul, Bipolar I disorder, most rec ent episode (or current) mixed, moderate F31.62 [place] [address] [place] [id number] [address] [place] [phone] Jul, Bipolar I disorder, most rec ent episode (or current) mixed, moderate F31.62 and BMI 60.0-69.9, adult Z68.44 [place] [address] [place] [id number] [address] [place] [phone] 16 Jul, 2017 Bipolar I disorder, most rec ent episode (or current) mixed, moderate F31.62 [place] [address] [place] [id number] [address] [place] [phone] Jul, Chronic pain G89.29 [place] [address] [place] [id number] [address] [place] [phone] 02 Jul, 2017 Bipolar I disorder, most rec ent episode (or current) mixed, moderate F31.62 [place] [address] [place] [id number] [address] [place] [phone] Jun, Polyneuropathy associated wi th underlying disease G63 and Diabetes E11.9 [place] [address] [facility] [id number] [address] [place] [phone] 16 Jun, 2017 Bipolar I disorder, most rec ent episode (or current) mixed, moderate F31.62 [facility] [address] [facility] [id number] [address] [place] [phone] 09 Jun, [address] [facility] [address] [facility] [id number] [address] [place] [phone] May, Bipolar I disorder, most rec ent episode (or current) mixed, moderate F31.62 [facility] [address] [facility] [id number] [address] [place] [phone] 21 May, 2017 Bipolar I disorder, most rec ent episode (or current) mixed, moderate F31.62 [facility] [address] [place] [id number] [address] [place] [phone] May, Diabetic polyneuropathy asso ciated with type 2 diabetes mellitus E11.42 [place] [address] [facility] [id number] [address] [place] [phone] May, Bipolar I disorder, most rec ent episode (or current) mixed, moderate F31.62 [place] [address] [facility] [id number] [address] [place] [phone] 13 May, 2017 Bipolar I disorder, most rec ent episode (or current) mixed, moderate F31.62 [place] [address] [place] [id number] [address] [place] [address] May, Chronic pain G89.29 [facility] [address] [facility] [id number] [address] [place] [address] Apr, Bipolar I disorder, most rec ent episode (or current) mixed, moderate F31.62 [facility] [address] [facility] [id number] [address] [place] [phone] Apr, [facility] [address] [facility] [id number] [address] [place] [address] Apr, Chronic pain G89.29 and DM n euro manif type II E11.49 [facility] [address] [id number] [address] [place] [phone] Apr, [facility] [address] [id number] [address] [place] [phone] Apr, Bipolar I disorder, most rec ent episode (or current) mixed, moderate F31.62 [facility] [address] [id number] [address] [place] [address] Apr, Chronic pain G89.29 [facility] [address] [id number] [address] [place] [address] Apr, Iliotibial band syndrome, le ft M76.32 [facility] [address] [id number] [address] [place] [phone] Apr, Bipolar I disorder, most rec ent episode (or current) mixed, moderate F31.62 [facility] [address] [id number] [address] [place] [address] Mar, Bipolar I disorder, most rec ent episode (or current) mixed, moderate F31.62 [facility] [address] [id number] [address] [place] [phone] Mar, Bipolar I disorder, most rec ent episode (or current) mixed, moderate F31.62 [facility] [address] [id number] [address] [place] [phone] Mar, [facility] [address] [id number] [address] [place] [phone] Mar, Bipolar I disorder, most rec ent episode (or current) mixed, moderate F31.62 [facility] [address] [id number] [address] [place] [phone] Mar, Chronic pain G89.29 [facility] [address] [id number] [address] [place] [phone] Mar, Bipolar I disorder, most rec ent episode (or current) mixed, moderate F31.62 [facility] [address] [id number] [address] [place] [phone] Mar, Bipolar I disorder, most rec ent episode (or current) mixed, moderate F31.62 [facility] [address] [facility] [id number] [address] [place] [phone] Mar, Acute pain of left knee M25. 562 ; Left hip pain M25.552 ; Generalized edema R60.1 and Tongue swelling R22.0 [facility] [address] [facility] [id number] [address] [place] [phone] Mar, [facility] [address] [facility] [id number] [address] [place] [phone] Feb, Chronic pain G89.29 [facility] [address] [facility] [id number] [address] [place] [address] Feb, Diabetes E11.9 [facility] [address] [facility] [id number] [address] [place] [phone] January, Chronic pain G89.29 [facility] [address] [facility] [id number] [address] [place] [phone] January, [facility] [address] [facility] [id number] [address] [place] [phone] January, Bipolar I disorder, most rec ent episode (or current) mixed, moderate F31.62 [facility] [address] [facility] [id number] [address] [place] [phone] Dec, Bipolar I disorder, most rec ent episode (or current) mixed, moderate F31.62 [facility] [address] [facility] [id number] [address] [place] [address] Dec, Chronic pain G89.29 [facility] [address] [facility] [id number] [address] [place] [phone] Dec, Bipolar I disorder, most rec ent episode (or current) mixed, moderate F31.62 [facility] [address] [facility] [id number] [address] [place] [phone] Dec, Diabetes E11.9 ; Essential h ypertension I10 ; Chronic pain G89.29 and Morbid obesity E66.01 [facility] [address] [id number] [address] [place] [phone] Dec, [facility] [address] [facility] [id number] [address] [place] [phone] Dec, Bipolar I disorder, most rec ent episode (or current) mixed, moderate F31.62 [facility] [address] [id number] [address] [place] [phone] Dec, Bipolar I disorder, most rec ent episode (or current) mixed, moderate F31.62 [facility] [address] [id number] [address] [place] [phone] Nov, Chronic pain G89.29 [facility] [address] [facility] [id number] [address] [place] [phone] Nov, Bipolar I disorder, most rec ent episode (or current) mixed, moderate F31.62 [facility] [address] [id number] [address] [place] [phone] Nov, [facility] [address] [facility] [id number] [address] [place] [phone] Nov, Bipolar I disorder, most rec ent episode (or current) mixed, moderate F31.62 [facility] [address] [facility] [id number] [address] [place] [phone] Nov, Bipolar I disorder, most rec ent episode (or current) mixed, moderate F31.62 [facility] [address] [id number] [address] [place] [phone] Nov, [facility] [address] [facility] [id number] [address] [place] [phone] Nov, [facility] [address] [facility] [id number] [address] [place] [phone] Nov, [facility] [address] [facility] [id number] [address] [place] [address] Oct, Chronic pain G89.29 [facility] [address] [id number] [address] [place] [phone] Oct, Bipolar I disorder, most rec ent episode (or current) mixed, moderate F31.62 [facility] [address] [facility] [id number] [address] [place] [phone] Oct, 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 [address] [facility] [id number] [address] [place] [phone] Oct, [facility] [address] [facility] [id number] [address] [place] [phone] Oct, Diabetes E11.9 [facility] [address] [facility] [id number] [address] [place] [phone] Oct, Bipolar I disorder, most rec ent episode (or current) mixed, moderate F31.62 [facility] [address] [facility] [id number] [address] [place] [address] Sep, Chronic pain G89.29 [facility] [address] [facility] [id number] [address] [place] [phone] Sep, Chronic pain G89.29 [facility] [address] [facility] [id number] [address] [place] [address] Aug, Chronic pain G89.29 [facility] [address] [facility] [id number] [address] [place] [phone] Jul, [facility] [address] [facility] [id number] [address] [place] [phone] Jul, Diabetes E11.9 [facility] [address] [facility] [id number] [address] [place] [address] Jul, Chronic pain G89.29 [facility] [address] [facility] [id number] [address] [place] [phone] Jul, Bipolar I disorder, most rec ent episode (or current) mixed, moderate F31.62 [facility] [address] [facility] [id number] [address] [place] [phone] Jun, Bipolar I disorder, most rec ent episode (or current) mixed, moderate F31.62 [facility] [address] [facility] [id number] [address] [place] [phone] Jun, [facility] [address] [facility] [id number] [address] [place] [phone] Jun, Bipolar I disorder, most rec ent episode (or current) mixed, moderate F31.62 [place] [address] [facility] [id number] [address] [place] [phone] May, Insomnia, unspecified type G 47.00 [facility] [address] [facility] [id number] [address] [place] [phone] May, Bipolar I disorder, most rec ent episode (or current) mixed, moderate F31.62 [place] [address] [facility] [id number] [address] [place] [phone] 14 May, 2016 [facility] [address] [place] [id number] [address] [place] [phone] May, Bipolar I disorder, most rec ent episode (or current) mixed, moderate F31.62 [facility] [address] [facility] [id number] [address] [place] [phone] May, Diabetes E11.9 and Essential hypertension I10 [facility] [address] [facility] [id number] [address] [place] [address] Apr, Chronic pain G89.29 [facility] [address] [facility] [id number] [address] [place] [address] Apr, Bipolar I disorder, most rec ent episode (or current) mixed, moderate F31.62 [place] [address] [facility] [id number] [address] [place] [address] Apr, [place] [address] [facility] [id number] [address] [place] [address] Apr, [place] [address] [facility] [id number] [address] [place] [address] Mar, Chronic pain G89.29 ; Headac he, unspecified headache type R51 ; Neuropathy G62.9 ; Pain of right hip joint M25.551 and Essential hypertension I10 [place] [address] [facility] [id number] [address] [place] [address] Mar, Chronic pain G89.29 [place] [address] [facility] [id number] [address] [place] [address] Mar, Bipolar I disorder, most rec ent episode (or current) mixed, moderate F31.62 [place] [address] [facility] [id number] [address] [place] [phone] Feb, Bipolar I disorder, most rec ent episode (or current) mixed, moderate F31.62 and Insomnia, unspecified type G47.00 [place] [address] [facility] [id number] [address] [place] [address] Feb, Chronic pain G89.29 [place] [address] [facility] [id number] [address] [place] [address] Feb, Bipolar I disorder, most rec ent episode (or current) mixed, moderate F31.62 [place] [address] [facility] [id number] [address] [place] [address] January, Bipolar I disorder, most rec ent episode (or current) mixed, moderate F31.62 [place] [address] [facility] [id number] [address] [place] [address] January, Chronic pain G89.29 [place] [address] [facility] [id number] [address] [place] [address] January, Chronic pain G89.29 and Esse ntial hypertension I10 [facility] [address] [address] January, Bipolar I disorder, most rec ent episode (or current) mixed, moderate F31.62 [facility] [address] [place] [id number] [address] [place] [phone] Dec, [facility] [address] [place] [id number] [place] [address] Dec, [facility] [address] [place] [id number] [address] [place] [phone] Dec, [facility] [address] [address] Dec, [facility] [address] [address] Nov, Reactive airway disease J45. 909 [facility] [address] [address] Nov, [facility] [address] [address] Nov, [facility] [address] [address] Nov, [facility] [address] [address] Nov, [facility] [address] [address] Nov, Onychomycosis B35.1 ; Hammer toe M20.40 ; Gypsum or callus L84 and DM neuro manif type II E11.49 [facility] [address] [place] [id number] [place] [address] Nov, Chronic pain G89.29 ; Leukoc ytosis D72.[address] [facility] [address] [address] Nov, [facility] [address] [address] Oct, Bronchitis J40 [place] [address] [address] Oct, [facility] [address] [address] Oct, [place] [address] [address] Oct, Mastoiditis, unspecified lat erality H70.90 and Type 2 diabetes mellitus with complication E11.8 [place] [address] [address] Sep, [place] [address] [address] Sep, Dysuria R30.0 ; Cough R05 ; Benign prostatic hyperplasia with lower urinary tract symptoms, unspecified morphology N40.1 ; Hypokalemia E87.6 and Eustachian tube dysfunction, unspecified laterality H69.80 [place] [address] [address] Sep, Moderate mixed bipolar I dis order F31.62 [place] [address] [address] Sep, Hypokalemia E87.6 [place] [address] [address] Sep, [place] [address] [address] Sep, Upper respiratory tract infe ction, unspecified type J06.9 [place] [address] [address] [place] [id number] [place] [id number] Aug, [place] [address] [address] Aug, Dysuria R30.0 [facility] [address] [id number] [address] [place] [id number] Aug, [facility] [address] [id number] [address] [place] [id number] Jul, [facility] [address] [id number] [address] [place] [id number] Jul, [facility] [address] [id number] [address] [place] [id number] Jul, [facility] [address] [id number] [address] [place] [id number] Jul, [facility] [address] [id number] [address] [place] [id number] Jun, [facility] [address] [id number] [address] [place] [id number] Jun, [facility] [address] [id number] [address] [place] [id number] Jun, [facility] [address] [id number] [address] [place] [id number] May, [facility] [address] [id number] [address] [place] [id number] May, Bipolar I disorder, most rec ent episode (or current) mixed, moderate 296.62 [facility] [facility] [address] [id number] [address] [place] [address] [address] [facility] [address] [id number] [address] [place] [address] May, Bipolar I disorder, most rec ent episode (or current) mixed, moderate 296.62 and Major depressive disorder, recurrent episode, severe, specified as with psychotic behavior 296.34 [facility] [address] [id number] [address] [place] [address] May, Bipolar I disorder, most rec ent episode (or current) mixed, moderate 296.62 [facility] [address] [id number] [address] [place] [address] May, [facility] [address] [id number] [address] [place] [address] Apr, [facility] [address] [id number] [address] [place] [address] Apr, [facility] [address] [id number] [address] [place] [address] Apr, Unspecified disorder of kidn ey and ureter 593.9 and Diabetes mellitus type [address], [address] [facility] [address] [id number] [address] [place] [address] Apr, [facility] [address] [id number] [address] [place] [address] Apr, [facility] [address] [id number] [address] [place] [address] Apr, [facility] [address] [id number] [address] [place] [address] Apr, [facility] [address] [id number] [address] [place] [address] Apr, Diabetes mellitus type II, u ncontrolled 250.02 [facility] [address] [id number] [address] [place] [address] Apr, [facility] [address] [id number] [address] [place] [address] Mar, [facility] [address] [id number] [address] [place] [address] Mar, [facility] [address] [id number] [address] [place] [address] Mar, [facility] [address] [id number] [address] [place] [address] Mar, Major depressive disorder, r ecurrent episode, severe, specified as with psychotic behavior 296.34 and Bipolar I disorder, most recent episode (or current) mixed, moderate 296.62 [facility] [address] [address] Mar, Diabetes 250.00 ; Anuria 788 .5 ; Nausea and vomiting 787.[address] [facility] [id number] [place] [address] Mar, Diabetes 250.00 [facility] [id number] [place] [address] Mar, [facility] [address] [address] Mar, Diabetes 250.00 [facility] [id number] [place] [address] Mar, [facility] [address] [address] Mar, [facility] [address] [id number] [address] [place] [address] Mar, [facility] [address] [address] Mar, [facility] [address] [id number] [address] [place] [address] Mar, Bipolar I disorder, most rec ent episode (or current) mixed, moderate 296.62 and Major depressive disorder, recurrent episode, severe, specified as with psychotic behavior 296.34 [facility] [address] [id number] [address] [place] [address] Mar, Magnesium deficiency 275.2 ; Hypokalemia 276.8 ; Nausea & vomiting 787.01 and Diabetes mellitus type [address], [address] [facility] [address] [id number] [address] [place] [address] Feb, [facility] [address] [address] Feb, Bipolar I disorder, most rec ent episode (or current) mixed, moderate 296.62 [place] [address] [address] Feb, Nausea and vomiting 787.01 ; Left elbow pain 719.42 ; Anuria 788.5 and Diabetes [address] [address] Feb, [place] [address] [address] Feb, Hypopotassemia 276.8 and Hyp okalemia 276.[address] [address] Feb, Hypopotassemia 276.8 and Hyp okalemia 276.[address] [address] Feb, Seborrheic keratoses 702.19 [place] [address] [address] Feb, Hypopotassemia 276.8 and Low magnesium levels 275.2 [place] [address] [address] January, [place] [address] [address] January, [place] [address] [address] January, [place] [id number] [place] [address] January, Scalp lesion 709.9 [place] [address] [address] January, [place] [address] [address] Dec, Tear of medial cartilage or meniscus of knee, current 836.0 and 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 [facility] [address] [id number] [address] [place] [address], [place] [address] Dec, [facility] [address] [id number] [address] [place] [address], [place] [address] Dec, [facility] [address] [id number] [address] [place] [address], [place] [address] 28 Dec, 2014 Squamous cell carcinoma, 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 [facility] [address] [id number] [address] [place] [address], [place] [address] 14 Dec, 2014 [facility] [address] [id number] [address] [place] [address], [place] [address] Dec, [facility] [address] [id number] [address] [place] [address], [place] [address] Nov, [facility] [address] [id number] [address] [place] [address], [place] [address] Nov, [facility] [address] [id number] [address] [place] [address], [place] [address] Nov, [facility] [address] [id number] [address] [place] [address], [place] [address] Nov, [facility] [address] [id number] [address] [place] [address] Nov, [facility] [address] [id number] [address] [place] [address], [place] [address] Nov, [facility] [address] [id number] [address] [place] [address] Nov, [facility] [address] [id number] [address] [place] [address], [place] [address] Nov, [facility] [address] [id number] [address] [place] [address], [place] [address] Nov, [facility] [address] [id number] [address] [place] [address] Nov, [facility] [address] [id number] [address] [place] [address], [place] [address] Nov, [facility] [address] [id number] [address] [place] [address], [place] [address] Nov, [facility] [address] [id number] [address] [place] [address], [place] [address] Oct, 2014 [facility] [address] [id number] [address] [place] [address], [place] [address] Oct, 2014 [facility] [address] [id number] [address] [place] [address], [place] [address] Oct, [facility] [address] [id number] [address] [place] [address], [place] [address] Oct, 2014 [facility] [address] [id number] [address] [place] [address], [place] [address] Oct, [facility] [address] [id number] [address] [place] [address], [place] [address] Oct, [facility] [address] [id number] [address] [place] [address], [place] [address] Oct, [facility] [address] [id number] [address] [place] [address], [place] [address] Oct, [facility] [address] [id number] [address] [place] [address], [place] [address] Oct, [facility] [address] [id number] [address] [place] [address], [place] [address] Sep, [facility] [address] [id number] [address] [place] [address], [place] [address] Sep, [facility] [address] [id number] [address] [place] [address], [place] [address] Sep, [facility] [address] [id number] [address] [place] [address], [place] [address] Sep, [facility] [address] [id number] [address] [place] [address], [place] [address] Sep, [facility] [address] [id number] [address] [place] [address], [place] [address] Sep, [facility] [address] [id number] [address] [place] [address], [place] [address] Sep, [facility] [address] [id number] [address] [place] [address], [place] [address] Sep, [facility] [address] [id number] [address] [place] [address], [place] [address] Sep, [facility] [address] [id number] [address] [place] [address], [place] [address] Sep, [facility] [address] [id number] [address] [place] [address], [place] [address] Sep, [facility] [address] [id number] [address] [place] [address], [place] [address] Sep, [facility] [address] [id number] [address] [place] [address], [place] [address] Sep, [facility] [address] [id number] [address] [place] [address], [place] [address] Sep, [facility] [address] [id number] [address] [place] [address], [place] [address] Sep, [facility] [address] [id number] [address] [place] [address], [place] [address] Sep, [facility] [address] [id number] [address] [place] [address], [place] [address] Aug, [facility] [address] [id number] [address] [place] [address], [place] [address] Aug, [facility] [address] [id number] [address] [place] [address], [place] [address] Aug, [facility] [address] [id number] [address] [place] [address], [place] [address] Aug, [facility] [address] [id number] [facility] [place] [address] Aug, [facility] [address] [id number] [facility] [place] [address] Aug, [facility] [address] [id number] [facility] [place] [address] Aug, [facility] [address] [id number] [facility] [place] [address] Aug, [facility] [address] [id number] [facility] [place] [address] Aug, [facility] [address] [id number] [address] [place] [address], [place] [address] Aug, [facility] [address] [id number] [facility] [place] [address] Aug, [facility] [address] [place] [id number] Aug, [facility] [address] [id number] [address] [place] [address], [place] [address] Aug, [facility] [address] [id number] [address] [place] [address], [place] [address] Aug, [facility] [address] [id number] [address] [place] [address], [place] [address] Aug, [facility] [address] [id number] [address] [place] [address], [place] [address] Aug, [facility] [address] [id number] [address] [place] [address], [place] [address] Aug, [facility] [address] [id number] [address] [place] [address], [place] [address] Aug, [facility] [address] [id number] [address] [place] [address], [place] [address] Aug, [facility] [address] [id number] [address] [place] [address], [place] [address] Aug, [facility] [address] [id number] [address] [place] [address], [place] [address] Aug, [facility] [address] [id number] [address] [place] [address], [place] [address] Aug, [facility] [address] [id number] [address] [place] [address], [place] [address] Aug, [facility] [address] [id number] [address] [place] [address], [place] [address] Aug, [facility] [address] [id number] [address] [place] [address], [place] [address] Aug, [facility] [address] [id number] [address] [place] [address], [place] [address] Aug, [facility] [address] [id number] [address] [place] [address], [place] [address] Aug, [facility] [address] [id number] [address] [place] [address], [place] [address] Aug, [facility] [address] [id number] [address] [place] [address], [place] [address] Aug, [facility] [address] [id number] [address] [place] [address], [place] [address] Aug, [facility] [address] [id number] [address] [place] [address], [place] [address] Jul, [facility] [address] [id number] [address] [place] [address], [place] [address] Jul, [facility] [address] [id number] [address] [place] [address], [place] [address] Jul, [facility] [address] [id number] [address] [place] [address], [place] [address] Jul, [facility] [address] [id number] [address] [place] [address], [place] [address] Jul, [facility] [address] [id number] [address] [place] [address], [place] [address] Jul, [facility] [address] [id number] [address] [place] [address], [place] [address] Jul, [facility] [address] [id number] [address] [place] [address], [place] [address] Jul, [facility] [address] [id number] [address] [place] [address], [place] [address] Jul, [facility] [address] [id number] [address] [place] [address], [place] [address] Jul, [facility] [address] [id number] [address] [place] [address], [place] [address] Jun, [facility] [address] [id number] [address] [place] [address], [place] [address] Jun, [facility] [address] [id number] [address] [place] [address], [place] [address] Jun, [facility] [address] [id number] [address] [place] [address], [place] [address] Jun, [facility] [address] [id number] [address] [place] [address], [place] [address] Jun, [facility] [address] [id number] [address] [place] [address], [place] [address] Jun, [facility] [address] [id number] [address] [place] [address], [place] [address] Jun, [facility] [address] [id number] [address] [place] [address], [place] [address] Jun, [facility] [address] [id number] [address] [place] [address], [place] [address] Jun, [facility] [address] [id number] [address] [place] [address], [place] [address] Jun, [facility] [address] [id number] [address] [place] [address], [place] [address] May, [facility] [address] [id number] [address] [place] [address], [place] [address] 29 Sep, 2013 [facility] [address] [id number] [address] [place] [address], [place] [address] 26 Sep, 2013 [facility] [address] [id number] [address] [place] [address], [place] [address] 26 Sep, 2013 [facility] [address] [id number] [address] [place] [address], [place] [address] 17 Sep, 2013 [facility] [address] [id number] [address] [place] [address], [place] [address] 17 Sep, 2013 [facility] [address] [id number] [address] [place] [address], [place] [address] 15 Sep, 2013 [facility] [address] [id number] [address] [place] [address], [place] [address] 15 Sep, 2013 [facility] [address] [id number] [address] [place] [address], [place] [address] 15 Sep, 2013 [facility] [address] [id number] [address] [place] [address], [place] [address] 15 Sep, 2013 [facility] [address] [id number] [address] [place] [address], [place] [address] 10 Sep, 2013 [facility] [address] [id number] [address] [place] [address], [place] [address] 10 Sep, 2013 [facility] [address] [id number] [address] [place] [address], [place] [address] 09 Sep, 2013 [facility] [address] [id number] [address] [place] [address], [place] [address] 09 Sep, 2013 [facility] [address] [id number] [address] [place] [address], [place] [address] 04 Sep, 2013 [facility] [address] [id number] [address] [place] [address], [place] [address] 04 Sep, 2013 [facility] [address] [id number] [address] [place] [address], [place] [address] Apr, [facility] [address] [id number] [address] [place] [address], [place] [address] Apr, [facility] [address] [id number] [address] [place] [address], [place] [address] Apr, [facility] [address] [id number] [address] [place] [address], [place] [address] Apr, [facility] [address] [id number] [address] [place] [address], [place] [address] Apr, [facility] [address] [id number] [address] [place] [address], [place] [address] Apr, [facility] [address] [id number] [address] [place] [address], [place] [address] Apr, [facility] [address] [id number] [address] [place] [address], [place] [address] Apr, [facility] [address] [id number] [address] [place] [address], [place] [address] Apr, [facility] [address] [id number] [address] [place] [address], [place] [address] Apr, [facility] [address] [id number] [address] [place] [address], [place] [address] Apr, [facility] [address] [id number] [address] [place] [address], [place] [address] Apr, [facility] [address] [id number] [address] [place] [address], [place] [address] Apr, [facility] [address] [id number] [address] [place] [address], [place] [address] Apr, [facility] [address] [id number] [address] [place] [address], [place] [address] Apr, [facility] [address] [id number] [address] [place] [address], [place] [address] Mar, [facility] [address] [id number] [facility] [place] [address] Mar, 2013 [facility] [address] [id number] [facility] [place] [address] Mar, 2013 [facility] [address] [id number] [facility] [place] [address] Mar, 2013 [facility] [address] [id number] [facility] [place] [address] Mar, 2013 [facility] [address] [id number] [facility] [place] [address] Mar, 2013 [facility] [address] [id number] [address] [place] [address], [place] [address] Mar, 2013 [facility] [address] [id number] [address] [place] [address], [place] [address] Mar, 2013 [facility] [address] [id number] [address] [place] [address], [place] [address] Mar, 2013 [facility] [address] [id number] [address] [place] [address], [place] [address] Mar, 2013 [facility] [address] [id number] [address] [place] [address], [place] [address] Mar, 2013 [facility] [address] [id number] [address] [place] [address], [place] [address] Mar, 2013 [facility] [address] [id number] [address] [place] [address], [place] [address] Mar, 2013 [facility] [address] [id number] [address] [place] [address], [place] [address] Mar, 2013 [facility] [address] [id number] [address] [place] [address], [place] [address] Mar, 2013 [facility] [address] [id number] [address] [place] [address], [place] [address] Mar, 2013 [facility] [address] [id number] [address] [place] [address], [place] [address] Mar, [facility] [address] [id number] [facility] [place] [address] Mar, [facility] [address] [id number] [facility] [place] [address] Feb, [facility] [address] [id number] [facility] [place] [address] Feb, [facility] [address] [id number] [facility] [place] [address] Feb, [facility] [address] [id number] [facility] [place] [address] Feb, [facility] [address] [id number] [address] [place] [address], [place] [address] Feb, [facility] [address] [id number] [address] [place] [address], [place] [address] Feb, [facility] [address] [id number] [address] [place] [address], [place] [address] Feb, [facility] [address] [id number] [address] [place] [address], [place] [address] Feb, [facility] [address] [id number] [address] [place] [address], [place] [address] Feb, [facility] [address] [id number] [address] [place] [address], [place] [address] Feb, [facility] [address] [id number] [address] [place] [address], [place] [address] Feb, [facility] [address] [id number] [address] [place] [address], [place] [address] Feb, [facility] [address] [id number] [address] [place] [address], [place] [address] Feb, [facility] [address] [id number] [address] [place] [address], [place] [address] Feb, [facility] [address] [id number] [facility] [place] [address] January, [facility] [address] [id number] [address] [place] [address], [place] [address] January, [facility] [address] [id number] [address] [place] [address], [place] [address] January, [facility] [address] [id number] [address] [place] [address], [place] [address] January, [facility] [address] [id number] [address] [place] [address], [place] [address] January, [facility] [address] [id number] [address] [place] [address], [place] [address] January, [facility] [address] [id number] [address] [place] [address], [place] [address] January, [facility] [address] [id number] [address] [place] [address], [place] [address] January, [facility] [address] [id number] [address] [place] [address], [place] [address] January, [facility] [address] [id number] [address] [place] [address], [place] [address] January, [facility] [address] [id number] [address] [place] [address], [place] [address] January, [facility] [address] [id number] [address] [place] [address], [place] [address] January, [facility] [address] [id number] [address] [place] [address], [place] [address] January, [facility] [address] [id number] [address] [place] [address], [place] [address] January, [facility] [address] [id number] [address] [place] [address], [place] [address] Dec, [facility] [address] [id number] [address] [place] [address], [place] [address] Dec, [facility] [address] [id number] [facility] [place] [address] Dec, [facility] [address] [id number] [facility] [place] [address] Dec, [facility] [address] [id number] [facility] [place] [address] Dec, [facility] [address] [id number] [address] [place] [address], [place] [address] Dec, [facility] [address] [id number] [facility] [place] [address] Dec, [facility] [address] [id number] [address] [place] [address], [place] [address] Dec, [facility] [address] [id number] [address] [place] [address], [place] [address] Dec, [facility] [address] [id number] [address] [place] [address], [place] [address] Dec, [facility] [address] [id number] [address] [place] [address], [place] [address] Nov, [facility] [address] [id number] [address] [place] [address], [place] [address] Nov, [facility] [address] [id number] [address] [place] [address], [place] [address] Nov, [facility] [address] [id number] [address] [place] [address], [place] [address] Nov, [facility] [address] [id number] [address] [place] [address], [place] [address] Nov, [facility] [address] [id number] [address] [place] [address], [place] [address] Nov, [facility] [address] [id number] [address] [place] [address], [place] [address] Nov, [facility] [address] [id number] [address] [place] [address], [place] [address] Nov, [facility] [address] [id number] [address] [place] [address], [place] [address] Nov, [facility] [address] [id number] [address] [place] [address], [place] [address] Nov, [facility] [address] [id number] [address] [place] [address], [place] [address] Oct, [facility] [address] [id number] [address] [place] [address], [place] [address] Oct, [facility] [address] [id number] [address] [place] [address], [place] [address] Oct, [facility] [address] [id number] [address] [place] [address], [place] [address] Oct, [facility] [address] [id number] [address] [place] [address], [place] [address] Oct, [facility] [address] [id number] [address] [place] [address], [place] [address] Oct, [facility] [address] [id number] [address] [place] [address], [place] [address] Oct, [facility] [address] [id number] [address] [place] [address], [place] [address] Oct, [facility] [address] [id number] [address] [place] [address], [place] [address] Oct, 2013 [facility] [address] [id number] [address] [place] [address], [place] [address] Oct, 2013 [facility] [address] [id number] [address] [place] [address], [place] [address] Oct, 2013 [facility] [address] [id number] [address] [place] [address], [place] [address] Oct, 2013 [facility] [address] [id number] [address] [place] [address], [place] [address] Oct, [facility] [address] [id number] [address] [place] [address], [place] [address] Oct, [facility] [address] [id number] [address] [place] [address], [place] [address] Sep, [facility] [address] [id number] [address] [place] [address], [place] [address] Sep, [facility] [address] [id number] [address] [place] [address], [place] [address] Sep, [facility] [address] [id number] [address] [place] [address], [place] [address] Sep, [facility] [address] [id number] [address] [place] [address], [place] [address] Sep, [facility] [address] [id number] [address] [place] [address], [place] [address] Sep, [facility] [address] [id number] [address] [place] [address], [place] [address] Sep, [facility] [address] [id number] [address] [place] [address], [place] [address] Sep, [facility] [address] [id number] [address] [place] [address], [place] [address] Sep, [facility] [address] [id number] [address] [place] [address], [place] [address] Sep, [facility] [address] [id number] [address] [place] [address], [place] [address] Aug, [facility] [address] [id number] [address] [place] [address], [place] [address] Aug, [facility] [address] [id number] [address] [place] [address], [place] [address] Jul, [facility] [address] [id number] [address] [place] [address], [place] [address] Jul, [facility] [address] [id number] [address] [place] [address], [place] [address] 13 Jul, 2013 [facility] [address] [id number] [address] [place] [address], [place] [address] Jul, [facility] [address] [id number] [address] [place] [address], [place] [address] Jul, [facility] [address] [id number] [address] [place] [address], [place] [address] Jul, [facility] [address] [id number] [address] [place] [address], [place] [address] Jul, [facility] [address] [id number] [address] [place] [address], [place] [address] Jul, [facility] [address] [id number] [address] [place] [address], [place] [address] Jul, [facility] [address] [id number] [address] [place] [address], [place] [address] Jul, [facility] [address] [id number] [address] [place] [address], [place] [address] Jul, [facility] [address] [id number] [address] [place] [address], [place] [address] Jul, [facility] [address] [id number] [address] [place] [address], [place] [address] Jul, [facility] [address] [id number] [address] [place] [address], [place] [address] Jul, [facility] [address] [id number] [address] [place] [address] Jul, [facility] [address] [id number] [address] [place] [address] Jul, [facility] [address] [id number] [address] [place] [address], [place] [address] Jul, [facility] [address] [id number] [address] [place] [address], [place] [address] Jul, [facility] [address] [id number] [address] [place] [address], [place] [address] Jul, [facility] [address] [id number] [address] [place] [address], [place] [address] Jun, 2012 [facility] [address] [id number] [address] [place] [address], [place] [address] Jun, 2012 [facility] [address] [id number] [address] [place] [address], [place] [address] Jun, 2012 [facility] [address] [id number] [address] [place] [address], [place] [address] Jun, 2012 [facility] [address] [id number] [address] [place] [address], [place] [address] Jun, 2012 [facility] [address] [id number] [address] [place] [address], [place] [address] Jun, 2012 [facility] [address] [id number] [address] [place] [address], [place] [address] Jun, [facility] [address] [id number] [address] [place] [address], [place] [address] Jun, [facility] [address] [id number] [address] [place] [address], [place] [address] Jun, [facility] [address] [id number] [address] [place] [address], [place] [address] Jun, [facility] [address] [id number] [address] [place] [address], [place] [address] Jun, [facility] [address] [id number] [address] [place] [address], [place] [address] 26 May, 2012 [facility] [address] [id number] [address] [place] [address], [place] [address] 25 May, 2012 [facility] [address] [id number] [address] [place] [address], [place] [address] 19 May, 2012 [facility] [address] [id number] [address] [place] [address], [place] [address] 17 May, 2013 [facility] [address] [id number] [facility] [place] [address] 11 May, 2013 [facility] [address] [id number] [address] [place] [address], [place] [address] 10 May, 2013 [facility] [address] [id number] [address] [place] [address], [place] [address] May, [facility] [address] [id number] [address] [place] [address], [place] [address] 05 May, 2013 [facility] [address] [id number] [address] [place] [address], [place] [address] Apr, [facility] [address] [id number] [address] [place] [address], [place] [address] Apr, [facility] [address] [id number] [address] [place] [address], [place] [address] Apr, [facility] [address] [id number] [address] [place] [address], [place] [address] Apr, [facility] [address] [id number] [address] [place] [address], [place] [address] Apr, [facility] [address] [id number] [address] [place] [address], [place] [address] Mar, [facility] [address] [id number] [address] [place] [address], [place] [address] Mar, [facility] [address] [id number] [address] [place] [address], [place] [address] Mar, [facility] [address] [id number] [address] [place] [address], [place] [address] Mar, [facility] [address] [id number] [address] [place] [address], [place] [address] Mar, [facility] [address] [id number] [address] [place] [address], [place] [address] Mar, [facility] [address] [id number] [address] [place] [address], [place] [address] Mar, [facility] [address] [id number] [address] [place] [address], [place] [address] Mar, [facility] [address] [id number] [address] [place] [address], [place] [address] Feb, [facility] [address] [id number] [address] [place] [address], [place] [address] Feb, [facility] [address] [id number] [address] [place] [address], [place] [address] January, [facility] [address] [id number] [address] [place] [address], [place] [address] January, [facility] [address] [id number] [address] [place] [address], [place] [address] Dec, [facility] [address] [id number] [address] [place] [address], [place] [address] Dec, [facility] [address] [id number] [address] [place] [address], [place] [address] Nov, [facility] [address] [id number] [address] [place] [address], [place] [address] Nov, [facility] [address] [id number] [address] [place] [address], [place] [address] Nov, [facility] [address] [id number] [address] [place] [address], [place] [address] Nov, [facility] [address] [id number] [address] [place] [address], [place] [address] Oct, [facility] [address] [id number] [address] [place] [address], [place] [address] Oct, [facility] [address] [id number] [address] [place] [address], [place] [address] Oct, [facility] [address] [id number] [address] [place] [address], [place] [address] Oct, [facility] [address] [id number] [address] [place] [address], [place] [address] 16 Oct, 2012 [facility] [address] [id number] [address] [place] [address], [place] [address] 14 Oct, 2012 [facility] [address] [id number] [address] [place] [address], [place] [address] 08 Oct, 2012 [facility] [address] [id number] [address] [place] [address], [place] [address] 07 Oct, 2012 [facility] [address] [id number] [address] [place] [address], [place] [address] Oct, [facility] [address] [id number] [address] [place] [address], [place] [address] Sep, [facility] [address] [id number] [address] [place] [address], [place] [address] Sep, [facility] [address] [id number] [address] [place] [address], [place] [address] Sep, [facility] [address] [id number] [address] [place] [address], [place] [address] Sep, [facility] [address] [id number] [address] [place] [address], [place] [address] Sep, [facility] [address] [id number] [address] [place] [address], [place] [address] Sep, [facility] [address] [id number] [address] [place] [address], [place] [address] Sep, [facility] [address] [id number] [address] [place] [address], [place] [address] Sep, [facility] [address] [id number] [address] [place] [address], [place] [address] Aug, [facility] [address] [id number] [address] [place] [address], [place] [address] Aug, [facility] [address] [id number] [address] [place] [address], [place] [address] Aug, [facility] [address] [id number] [address] [place] [address], [place] [address] Aug, [facility] [address] [id number] [address] [place] [address], [place] [address] Aug, [facility] [address] [id number] [address] [place] [address], [place] [address] Aug, [facility] [address] [id number] [address] [place] [address], [place] [address] Aug, [facility] [address] [id number] [address] [place] [address], [place] [address] Aug, [facility] [address] [id number] [address] [place] [address], [place] [address] Jul, [facility] [address] [id number] [address] [place] [address], [place] [address] Jul, [facility] [address] [id number] [address] [place] [address], [place] [address] Jul, [facility] [address] [id number] [address] [place] [address], [place] [address] Jul, [facility] [address] [id number] [address] [place] [address], [place] [address] Jul, [facility] [address] [id number] [address] [place] [address], [place] [address] Jul, [facility] [address] [id number] [address] [place] [address], [place] [address] Jun, [facility] [address] [id number] [address] [place] [address], [place] [address] Jun, [facility] [address] [id number] [address] [place] [address], [place] [address] Jun, [facility] [address] [id number] [address] [place] [address], [place] [address] Jun, [facility] [address] [id number] [address] [place] [address], [place] [address] 22 Jun, 2012 [facility] [address] [id number] [address] [place] [address], [place] [address] Jun, [facility] [address] [id number] [address] [place] [address], [place] [address] 19 Jun, 2012 [facility] [address] [id number] [address] [place] [address], [place] [address] Jun, [facility] [address] [id number] [address] [place] [address], [place] [address] 10 Jun, 2012 [facility] [address] [id number] [address] [place] [address], [place] [address] 26 May, 2012 [facility] [address] [id number] [address] [place] [address], [place] [address] 24 May, 2012 [facility] [address] [id number] [address] [place] [address], [place] [address] 18 May, 2012 [facility] [address] [id number] [address] [place] [address], [place] [address] 30 Apr, 2012 [facility] [address] [id number] [address] [place] [address], [place] [address] 29 Apr, 2012 [facility] [address] [id number] [address] [place] [address], [place] [address] Apr, [facility] [address] [id number] [address] [place] [address], [place] [address] 14 Apr, 2012 [facility] [address] [id number] [address] [place] [address], [place] [address] Apr, [facility] [address] [id number] [address] [place] [address], [place] [address] Apr, [facility] [address] [id number] [address] [place] [address], [place] [address] Mar, [facility] [address] [id number] [address] [place] [address], [place] [address] Mar, [facility] [address] [id number] [address] [place] [address], [place] [address] Mar, [facility] [address] [id number] [address] [place] [address], [place] [address] Mar, [facility] [address] [id number] [address] [place] [address], [place] [address] Feb, [facility] [address] [id number] [address] [place] [address], [place] [address] Feb, [facility] [address] [id number] [address] [place] [address], [place] [address] Feb, [facility] [address] [id number] [address] [place] [address], [place] [address] Feb, [facility] [address] [id number] [address] [place] [address], [place] [address] Feb, [facility] [address] [id number] [address] [place] [address], [place] [address] January, [facility] [address] [id number] [address] [place] [address], [place] [address] January, [facility] [address] [id number] [address] [place] [address], [place] [address] January, [facility] [address] [id number] [address] [place] [address], [place] [address] January, [facility] [address] [id number] [address] [place] [address], [place] [address] January, [facility] [address] [id number] [address] [place] [address], [place] [address] January, [facility] [address] [id number] [address] [place] [address], [place] [address] Dec, [facility] [address] [id number] [address] [place] [address], [place] [address] Dec, [facility] [address] [id number] [address] [place] [address], [place] [address] 17 Dec, 2011 [facility] [address] [id number] [address] [place] [address], [place] [address] 09 Dec, 2011 [facility] [address] [id number] [address] [place] [address], [place] [address] 06 Dec, 2011 [facility] [address] [id number] [address] [place] [address], [place] [address] 27 Nov, 2011 [facility] [address] [id number] [address] [place] [address], [place] [address] 14 Nov, 2011 [facility] [address] [id number] [address] [place] [address], [place] [address] 12 Nov, 2011 [facility] [address] [id number] [address] [place] [address], [place] [address] 07 Nov, 2011 [facility] [address] [id number] [address] [place] [address], [place] [address] 29 Oct, 2011 [facility] [address] [id number] [address] [place] [address], [place] [address] 28 Oct, 2011 [facility] [address] [id number] [address] [place] [address], [place] [address] 24 Oct, 2011 [facility] [address] [id number] [address] [place] [address], [place] [address] 13 Oct, 2011 [facility] [address] [id number] [address] [place] [address], [place] [address] 08 Oct, 2011 [facility] [address] [id number] [address] [place] [address], [place] [address] Sep, [facility] [address] [id number] [address] [place] [address], [place] [address] 30 Sep, 2011 [facility] [address] [id number] [address] [place] [address], [place] [address] 12 Sep, 2011 [facility] [address] [id number] [address] [address] Sep, [facility] [address] [id number] [address] [place] [address], [place] [address] Sep, [facility] [address] [id number] [address] [place] [address], [place] [address] Sep, [facility] [address] [id number] [address] [place] [address], [place] [address] Aug, [facility] [address] [id number] [address] [place] [address] Aug, [facility] [address] [id number] [address] [place] [address], [place] [address] Aug, [facility] [address] [id number] [address] [place] [address] Jul, [facility] [address] [id number] [address] [place] [address], [place] [address] Jul, [facility] [address] [id number] [address] [place] [address] Jul, [facility] [address] [id number] [address] [place] [address] Jul, [facility] [facility] [address] [id number] [address] [place] [id number] Jun, [facility] [address] [id number] [address] [place] [id number] Jun, [facility] [address] [id number] [address] [place] [id number] 18 Jun, 2011 [facility] [address] [id number] [address] [place] [address], [place] [address] Jun, [facility] [address] [id number] [address] [place] [id number] Jun, [facility] [address] [id number] [address] [place] [id number] Jun, [facility] [address] [id number] [address] [place] [address], [place] [address] 11 Mar, 2011 [facility] [address] [id number] [address] [place] [address], [place] [address] 18 Dec, 2010 [facility] [address] [id number] [address] [place] [address], [place] [address] 11 Dec, 2010 [facility] [address] [id number] [address] [place] [address], [place] [address] 18 Nov, 2010 [facility] [address] [id number] [address] [place] [address], [place] [address] 16 Nov, 2010 [facility] [address] [id number] [address] [place] [address], [place] [address] 10 Sep, 2010 [facility] [address] [id number] [address] [place] [address], [place] [address] 31 Aug, 2010 [facility] [address] [id number] [address] [place] [address], [place] [address] 29 Aug, 2010 [facility] [address] [id number] [address] [place] [address], [place] [address] 29 Aug, 2010 [facility] [address] [id number] [address] [place] [address], [place] [address] 29 Aug, 2010 [facility] [address] [id number] [address] [place] [address], [place] [address] 27 Aug, 2010 [facility] [address] [id number] [address] [place] [address], [place] [address] 14 Aug, 2010 [facility] [address] [id number] [address] [place] [address], [place] [address] 08 Aug, 2010 [facility] [address] [id number] [address] [place] [address], [place] [address] 08 Aug, 2010 [facility] [address] [id number] [address] [place] [address], [place] [address] 07 Aug, 2010 [facility] [address] [id number] [address] [place] [address], [place] [address] Aug, [facility] [address] [id number] [address] [place] [address], [place] [address] Aug, [facility] [address] [id number] [address] [place] [address], [place] [address] Aug, [facility] [address] [id number] [address] [place] [address], [place] [address] Jul, [facility] [address] [id number] [address] [place] [address], [place] [address] Jul, [facility] [address] [id number] [address] [place] [address], [place] [address] Jul, [facility] [address] [id number] [address] [place] [address], [place] [address] Jul, [facility] [address] [id number] [address] [place] [address], [place] [address] Jul, [facility] [address] [id number] [address] [place] [id number] Jul, [facility] [address] [id number] [address] [place] [address], [place] [address] Jun, [facility] [address] [id number] [address] [place] [id number] Jun, [facility] [address] [id number] [address] [place] [phone] Jun, [facility] [address] [id number] [address] [place] [address] Jun, [facility] [address] [id number] [address] [place] [id number] Apr, [facility] [address] [id number] [address] [place] [phone] Mar, [facility] [address] [id number] [address] [place] [phone] Feb, [facility] [address] [id number] [address] [place] [phone] January, [facility] [address] [id number] [address] [place] [address], [place] [address] 15 Dec, 2009 [facility] [address] [id number] [address] [place] [id number] Nov, [facility] [address] [id number] [address] [place] [phone] 31 Aug, 2009 [facility] [address] [id number] [address] [place] [id number] Aug, [facility] [address] [id number] [address] [place] [phone] Aug, [facility] [address] [id number] [address] [place] [id number] Jul, [facility] [address] [id number] [address] [place] [phone] Jul, [facility] [address] [id number] [address] [place] [id number] Jul, [facility] [address] [id number] [address] [place] [id number] 30 Jun, 2009 [facility] [address] [id number] [address] [place] [id number] 29 Jun, 2009 [facility] [address] [id number] [address] [place] [id number] Jun, [facility] [address] [id number] [address] [place] [id number] Jun, [facility] [address] [id number] [address] [place] [phone] Jun, [facility] [address] [id number] [address] [place] [id number] Jun, [facility] [address] [id number] [address] [place] [phone] Apr, [facility] [address] [facility] [id number] [address] [place] [id number] Apr, [facility] [address] [facility] [id number] [address] [place] [id number] Feb, [facility] [address] [facility] [id number] [address] [place] [id number] January, [facility] [address] [facility] [id number] [address] [place] [id number] Dec, IMMUNIZATIONS No Known Immunizations SOCIAL HISTORY [...] Medical History skin cancer-basal cell R faith (removed ) Medical History Arthritis Medical History [...] (Left) 2000 Surgical History EGD ([facility]) 2009 Surgical History colonoscopy 2009 ([facility]), 2013 [place] ) Surgical History heart cath: CAD w/ [...] History inability to urinate 09/16/15 Hospitalization History [facility] ea rly 1999' Hospitalization History hyperkalemia 10/2017 Hospitalization History fluid in lung
--- OUTSIDE RECORDS SUMMARY | 2020-03-01 16:36 | XMS REPORT ---
Author Author Michele Verduzco Doctor Organization [facility] Address Unknown Phone Unavailable Care Team Providers Care Unix Analyst Name Role Phone Migration, Doctor Unavailable Unavailable PROBLEMS Type Condition ICD9-CM Code UAT21-YE Code Onset Dates Condition S tatus SNOMED Code Problem Leukocytosis D72.829 Active 4769470 06 Problem Bipolar I disorder, most recent episode (or curr ent) mixed, moderate F31.62 Active 23463765 Problem Reactive airway disease J45.909 Active 940617369273 Problem Anxiety F41.9 Active 88551400 Problem Insomnia, unspecified type G47.00 Act sharon 477833130 Problem Essential hypertension I10 Active 72329290 Problem Morbid obesity E66.01 Active 70031 6002 Problem Skin cancer C44.90 Active 06185579 7 Problem DM neuro manif type II E11.49 Active 70723539 Problem Mild cognitive impairment G31.84 Acti ve 062625204 Problem Benign prostatic hyperplasia with lower urinary tract symptoms, unspecified morphology N40.1 Active 83313 6007 Problem Chronic pain G89.29 Active 9514992 1 Problem Diabetes E11.9 Active 14147099 Problem Retinal edema H35.81 Active 533297 6 Problem Anemia of chronic illness D63.8 Acti ve 071506460 Problem Falling R29.6 Active 631655771 Problem Pressure ulcer of other site, stage 3 L89.893 Active 096421537 Problem 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 Active 776139302 Problem Eye exam abnormal R93.8 Active 16 1531389 Problem Pure hypercholesterolemia E78.00 Acti ve 002549917 Problem Dysuria R30.0 Active 68740436 Problem Bipolar disorder, in partial remission, most rec ent episode depressed F31.75 Active 37138111 Problem Hypokalemia E87.6 Active 83551182 Problem Other iron deficiency anemia D50.8 A ctive 19628509 Problem Eustachian tube dysfunction, unspecified laterality H69.80 Active 13467041 Problem Primary osteoarthritis of right knee M17.11 Active 102656855551491 Problem Cough R05 Active 59729859 Problem Bipolar disorder F31.9 Active 137 64742 Problem Chronic diastolic (congestive) heart failure I50.3 2 Active 600886201 Problem Psychophysiological insomnia F51.04 A ctive 515834385 Problem Gastroesophageal reflux disease without esophagitis K21.9 Active 853039344 Problem Polyneuropathy associated with underlying disease G63 Active 269581757 Problem Other secondary acute gout, 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 0 Active 322551808 Problem Diabetic polyneuropathy associated with type 2 d iabetes mellitus E11.42 Active 20674767 Problem Chronic lymphocytic leukemia C91.10 A ctive 08105591 Problem Bilateral primary osteoarthritis of knee M17.0 Active 105758240 Problem Type 2 diabetes mellitus with diabetic neuropathy, uns pecified E11.40 Active 70277274 Problem skilled nursing (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 Z79.4 Active 535229226 Problem Lymphocytosis D72.820 Active 322352 09 Problem Mood disorder F39 Active 641608 05 Problem Bipolar I disorder, most recent episode depressed, moderat e F31.32 Active 416045989 ALLERGIES No Information ENCOUNTERS Encounter Location Date Diagnosis [place] [address] [address] [facility] [id number] [address] [place] [phone] Dec, [place] [address] [address] [place] [id number] [address] [place] [id number] Dec, Mood disorder F39 [place] [address] [address] [facility] [id number] [address] [place] [id number] Nov, Other secondary acute gout, 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 [place] [address] [address] [facility] [id number] [address] [place] [phone] Nov, Gastroesophageal reflux dise ase without esophagitis K21.9 [place] [address] [address] [facility] [id number] [address] [place] [phone] Nov, Chronic pain G89.29 [place] [address] [address] [facility] [id number] [address] [place] [id number] Nov, Bipolar I disorder, most rec ent episode depressed, moderate F31.32 ; Anxiety F41.9 and Mild cognitive impairment G31.84 [place] [address] [id number] [address] [place] [id number] Nov, [facility] [address] [id number] [address] [place] [id number] Nov, Syncope, unspecified syncope type R55 [facility] [address] [id number] [address] [place] [phone] Nov, Mood disorder F39 [facility] [address] [id number] [address] [place] [id number] Oct, Chronic pain G89.29 [facility] [address] [id number] [address] [place] [id number] Oct, [facility] [address] [id number] [address] [place] [id number] Oct, Mood disorder F39 [facility] [address] [id number] [address] [place] [id number] Oct, [facility] [address] [id number] [address] [place] [id number] Oct, Bipolar disorder, in partial remission, most recent episode depressed F31.75 and Mild cognitive impairment G31.84 [facility] [address] [id number] [address] [place] [id number] Oct, Mood disorder F39 [facility] [address] [id number] [address] [place] [phone] Sep, [facility] [address] [id number] [address] [place] [id number] Sep, Mood disorder F39 [facility] [address] [id number] [address] [place] [id number] Sep, Bipolar disorder, in partial remission, most recent episode depressed F31.75 and Mild cognitive impairment G31.84 [facility] [address] [id number] [address] [place] [id number] Sep, Mood disorder F39 [facility] [address] [id number] [address] [place] [id number] Sep, [facility] [address] [id number] [address] [place] [phone] Sep, Mood disorder F39 [facility] [address] [id number] [address] [place] [id number] Sep, [facility] [address] [id number] [address] [place] [id number] Aug, Mood disorder F39 [facility] [address] [id number] [address] [place] [id number] Aug, [facility] [address] [id number] [address] [place] [phone] Aug, [facility] [address] [id number] [address] [place] [phone] Aug, [facility] [address] [id number] [address] [place] [id number] Aug, [facility] [address] [id number] [address] [place] [phone] Aug, [facility] [address] [id number] [address] [place] [id number] Aug, [facility] [address] [id number] [address] [place] [phone] Aug, [facility] [address] [id number] [address] [place] [id number] Aug, Essential hypertension I10 [facility] [address] [id number] [address] [place] [id number] Aug, Bipolar disorder, in partial remission, most recent episode depressed F31.75 and Mild cognitive impairment G31.84 [facility] [address] [id number] [address] [place] [phone] Aug, Mood disorder F39 [facility] [address] [id number] [address] [place] [id number] Aug, [facility] [address] [id number] [address] [place] [id number] Aug, Bipolar disorder, in partial remission, most recent episode depressed F31.75 and Mild cognitive impairment G31.84 [facility] [address] [id number] [address] [place] [id number] Jul, Bipolar disorder, in partial remission, most recent episode depressed F31.75 and Mild cognitive impairment G31.84 [facility] [address] [id number] [address] [place] [id number] Jul, Psychophysiological insomnia F51.04 [facility] [address] [id number] [address] [place] [id number] Jul, [facility] [address] [id number] [address] [place] [id number] Jul, [facility] [address] [id number] [address] [place] [id number] Jul, [facility] [address] [id number] [address] [place] [phone] Jul, [facility] [address] [id number] [address] [place] [id number] Jul, [facility] [address] [id number] [address] [place] [address] Jul, [facility] [address] [id number] [address] [place] [id number] Jul, Bipolar disorder, in partial remission, most recent episode depressed F31.75 and Mild cognitive impairment G31.84 [facility] [address] [id number] [address] [place] [id number] Jul, Chronic pain G89.29 ; Diabet es E11.9 ; Essential hypertension I10 ; Ill feeling R68.89 ; Local infection of the skin and subcutaneous tissue, unspecified L08.9 and Other injury of unspecified body region, initial encounter T14.8XXA [facility] [address] [id number] [address] [place] [address] Jun, Bipolar disorder, in partial remission, most recent episode depressed F31.75 and Mild cognitive impairment G31.84 [facility] [address] [id number] [address] [place] [id number] Jun, [facility] [address] [id number] [address] [place] [id number] Jun, Bipolar disorder, in partial remission, most recent episode depressed F31.75 and Mild cognitive impairment G31.84 [facility] [address] [id number] [address] [place] [id number] Jun, Psychophysiological insomnia F51.04 [place] [address] [address] [facility] [id number] [address] [place] [address] Jun, Psychophysiological insomnia F51.04 ; Chronic pain G89.29 ; Bipolar I disorder, most recent episode (or current) mixed, moderate F31.62 ; 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 ; Polyneuropathy associated with underlying disease G63 ; Type 2 diabetes mellitus with diabetic neuropathy, unspecified E11.40 ; skilled nursing (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 Z79.4 and Hyperglycemia R73.9 [id number] [address] [facility] [id number] [address] [place] [phone] Jun, Bipolar disorder, in partial remission, most recent episode depressed F31.75 and Mild cognitive impairment G31.84 [facility] [address] [id number] [address] [place] [id number] Jun, [facility] [address] [id number] [address] [place] [id number] Jun, Bipolar disorder F31.9 [facility] [address] [id number] [address] [place] [id number] May, Bipolar disorder, in partial remission, most recent episode depressed F31.75 and Mild cognitive impairment G31.84 [place] [id number] [id number] [address] [place] [phone] May, [facility] [address] [id number] [address] [place] [id number] Apr, Chronic pain G89.29 and Bipo lar disorder F31.9 [facility] [address] [id number] [address] [place] [address] Mar, Bipolar disorder F31.9 and C hronic pain G89.29 [facility] [address] [id number] [address] [place] [phone] Feb, Bipolar disorder F31.9 [facility] [address] [id number] [address] [place] [address] Feb, Cellulitis of right upper ex tremity L03.113 and Skin abrasion T14.8XXA [facility] [address] [id number] [address] [place] [id number] Feb, Bipolar disorder, in partial remission, most recent episode depressed F31.75 and Mild cognitive impairment G31.84 [facility] [address] [id number] [address] [place] [address] Feb, Chronic pain G89.29 [facility] [address] [facility] [id number] [address] [place] [id number] Feb, Bipolar disorder, in partial remission, most recent episode depressed F31.75 and Mild cognitive impairment G31.84 [facility] [address] [id number] [address] [place] [id number] January, Bipolar disorder, in partial remission, most recent episode depressed F31.75 and Mild cognitive impairment G31.84 [facility] [address] [facility] [id number] [address] [place] [id number] January, Chronic pain G89.29 and Bipo lar disorder F31.9 [facility] [address] [facility] [id number] [address] [place] [id number] January, Bipolar disorder, in partial remission, most recent episode depressed F31.75 and Mild cognitive impairment G31.84 [facility] [address] [id number] [address] [place] [id number] Dec, [facility] [address] [id number] [address] [place] [id number] Dec, Chronic pain G89.29 and Bipo lar disorder F31.9 [facility] [address] [id number] [address] [place] [id number] Dec, Edema of both lower extremit ies R60.0 [facility] [address] [id number] [address] [place] [id number] Dec, Bipolar disorder F31.9 [facility] [address] [facility] [id number] [address] [place] [phone] Dec, Bipolar disorder, in partial remission, most recent episode depressed F31.75 and Mild cognitive impairment G31.84 [facility] [address] [id number] [address] [place] [id number] Nov, [facility] [address] [id number] [address] [place] [id number] Nov, Chronic pain G89.29 [facility] [address] [facility] [id number] [address] [place] [id number] Nov, Bipolar disorder, in partial remission, most recent episode depressed F31.75 and Mild cognitive impairment G31.84 [facility] [address] [id number] [address] [place] [id number] Nov, Bipolar disorder F31.9 [facility] [address] [facility] [id number] [address] [place] [phone] 04 Nov, 2018 Encounter for Medicare annua [...] unspecified morphology N40.1 and Essential hypertension I10 [place] [address] [address] Oct, Chronic pain G89.[address] [address] Oct, Diabetes E11.[address] [address] Oct, Bipolar I disorder, most rec ent episode (or current) mixed, moderate F31.62 and Mild cognitive impairment G31.[address] [address] Oct, Bipolar I disorder, most rec ent episode (or current) mixed, moderate F31.62 and Mild cognitive impairment G31.84 [place] [address] [id number] Sep, Bipolar I disorder, most rec ent episode (or current) mixed, moderate F31.62 and Mild cognitive impairment G31.84 [place] [address] [address] Sep, [address] [address] Sep, Diabetes E11.9 ; Hypoxia R09 .02 ; Hyperglycemia R73.9 ; Therapeutic drug monitoring Z51.81 ; BMI 50.0-59.9, adult Z68.43 and Skin cancer C44.[address] [address] Sep, Chronic pain G89.[address] [address] Sep, Bipolar I disorder, most rec ent episode (or current) mixed, moderate F31.62 [facility] [address] [id number] [address] [place] [id number] Sep, [facility] [address] [id number] [address] [place] [id number] Sep, [facility] [address] [id number] [address] [place] [id number] Aug, Chronic pain G89.29 [facility] [address] [id number] [address] [place] [phone] Aug, Bipolar I disorder, most rec ent episode (or current) mixed, moderate F31.62 [facility] [address] [id number] [address] [place] [id number] Aug, Bipolar I disorder, most rec ent episode (or current) mixed, moderate F31.62 and Mild cognitive impairment G31.84 [facility] [address] [id number] [address] [place] [id number] Jul, [facility] [address] [id number] [address] [place] [address] Jul, Chronic pain G89.29 [facility] [address] [id number] [address] [place] [id number] Jul, Bipolar I disorder, most rec ent episode (or current) mixed, moderate F31.62 and Mild cognitive impairment G31.84 [facility] [address] [id number] [address] [place] [address] Jul, Bipolar I disorder, most rec ent episode (or current) mixed, moderate F31.62 and MCI (mild cognitive impairment) G31.84 [facility] [address] [id number] [address] [place] [id number] Jul, [facility] [address] [facility] [id number] [address] [place] [id number] Jul, [facility] [address] [facility] [id number] [address] [place] [id number] Jul, Bipolar I disorder, most rec ent episode (or current) mixed, moderate F31.62 [facility] [address] [id number] [address] [place] [id number] Jul, Chronic pain G89.29 [facility] [address] [id number] [address] [place] [id number] Jun, Bipolar I disorder, most rec ent episode (or current) mixed, moderate F31.62 [facility] [address] [facility] [id number] [address] [place] [id number] Jun, Pre-procedure lab exam Z01.8 12 [facility] [address] [facility] [id number] [address] [place] [id number] Jun, [facility] [address] [id number] [place] [id number] Jun, [facility] [address] [facility] [id number] [address] [place] [phone] Jun, [facility] [address] [facility] [id number] [address] [place] [address] Jun, Forgetfulness R68.89 ; Pre-s yncope R55 ; Localized edema R60.0 ; Other iron deficiency anemia D50.8 and BMI 50.0-59.9, adult Z68.43 [facility] [address] [facility] [id number] [address] [place] [address] Jun, Chronic pain G89.29 [facility] [address] [facility] [id number] [address] [place] [address] Jun, Chronic pain G89.29 [facility] [address] [facility] [id number] [address] [place] [phone] Jun, Bipolar I disorder, most rec ent episode (or current) mixed, moderate F31.62 [facility] [address] [facility] [id number] [address] [place] [address] May, Chronic pain G89.29 [facility] [address] [place] [id number] [address] [place] [address] Apr, [place] [address] [address] [facility] [id number] [address] [place] [id number] Apr, Chronic pain G89.29 [facility] [address] [facility] [id number] [address] [place] [phone] Apr, Primary osteoarthritis of ri ght knee M17.11 [place] [address] [address] [place] [id number] [address] [place] [id number] Mar, [place] [address] [place] [id number] [address] [place] [id number] Mar, BMI 50.0-59.9, adult Z68.43 and Bipolar disorder, in partial remission, most recent episode depressed F31.75 [place] [address] [address] [place] [id number] [address] [place] [address] Mar, Diabetes E11.9 ; Pure hyperc holesterolemia E78.00 ; Essential hypertension I10 ; Nausea with vomiting, unspecified R11.2 and Headache, unspecified headache type R51 [place] [address] [place] [id number] [address] [place] [address] Mar, Bipolar I disorder, most rec ent episode (or current) mixed, moderate F31.62 [place] [address] [place] [id number] [address] [place] [id number] Mar, Bipolar I disorder, most rec ent episode (or current) mixed, moderate F31.62 [place] [address] [place] [id number] [address] [place] [address] Mar, Chronic pain G89.29 [place] [address] [place] [id number] [address] [place] [id number] Mar, Bipolar I disorder, most rec ent episode (or current) mixed, moderate F31.62 [place] [address] [place] [id number] [address] [place] [id number] Feb, Bipolar I disorder, most rec ent episode (or current) mixed, moderate F31.62 [facility] [address] [id number] [address] [place] [id number] 14 Feb, 2018 Chronic pain G89.29 [facility] [address] [facility] [id number] [address] [place] [id number] Feb, Decubitus ulcer of right josselin t, stage 3 L89.893 and BMI 50.0-59.9, adult Z68.43 [facility] [address] [id number] [address] [place] [id number] Feb, Bipolar I disorder, most rec ent episode (or current) mixed, moderate F31.62 [facility] [address] [id number] [address] [place] [id number] Feb, [facility] [address] [facility] [id number] [address] [place] [id number] January, [facility] [address] [facility] [id number] [address] [place] [id number] January, Chronic pain G89.29 [facility] [address] [id number] [address] [place] [phone] January, Bipolar I disorder, most rec ent episode (or current) mixed, moderate F31.62 [facility] [address] [facility] [id number] [address] [place] [phone] January, Bipolar I disorder, most rec ent episode (or current) mixed, moderate F31.62 [facility] [address] [facility] [id number] [address] [place] [phone] Dec, Bipolar I disorder, most rec ent episode (or current) mixed, moderate F31.62 and BMI 50.0-59.9, adult Z68.43 [facility] [address] [facility] [id number] [address] [place] [id number] Dec, Bipolar I disorder, most rec ent episode (or current) mixed, moderate F31.62 [facility] [address] [facility] [id number] [address] [place] [phone] Dec, Chronic pain G89.29 [place] [address] [place] [id number] [place] [address] Dec, DM neuro manif type II E11.4 9 ; Right flank pain R10.9 ; tomato grader 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 Z79.891 ; Encounter for medication monitoring Z51.81 and BMI 50.0-59.9, adult Z68.43 [place] [address] [address] Dec, Bipolar I disorder, most rec ent episode (or current) mixed, moderate F31.62 [place] [address] [address] Nov, Bipolar I disorder, most rec ent episode (or current) mixed, moderate F31.62 [place] [address] [address] Nov, Chronic pain G89.29 [place] [address] [place] [id number] [place] [address] Nov, Bipolar I disorder, most rec ent episode (or current) mixed, moderate F31.62 [place] [address] [address] Nov, Hypokalemia E87.6 [place] [address] [address] Nov, Bipolar I disorder, most rec ent episode (or current) mixed, moderate F31.62 [place] [address] [place] [id number] [address] [place] [phone] Oct, Chronic pain G89.29 [place] [address] [place] [id number] [address] [place] [id number] Oct, BMI 50.0-59.9, adult Z68.43 and Bipolar I disorder, most recent episode (or current) mixed, moderate F31.62 [place] [address] [facility] [id number] [address] [place] [phone] Oct, Bipolar I disorder, most rec ent episode (or current) mixed, moderate F31.62 [facility] [address] [facility] [id number] [address] [place] [id number] Oct, [facility] [address] [facility] [id number] [address] [place] [phone] Oct, Hypokalemia E87.6 [facility] [address] [facility] [id number] [address] [place] [phone] Oct, DM neuro manif type II E11.4 9 [facility] [address] [facility] [id number] [address] [place] [phone] Oct, Bipolar I disorder, most rec ent episode (or current) mixed, moderate F31.62 [facility] [address] [place] [id number] [address] [place] [id number] Oct, Bipolar I disorder, most rec ent episode (or current) mixed, moderate F31.62 [facility] [address] [facility] [id number] [address] [place] [address] Oct, Hyperkalemia E87.5 ; Falling R29.6 ; BMI 50.0-59.9, adult Z68.43 and Acute left ankle pain M25.572 [facility] [address] [place] [id number] [address] [place] [phone] Oct, DM neuro manif type II E11.4 9 [facility] [address] [facility] [id number] [address] [place] [phone] Oct, [facility] [address] [place] [id number] [address] [place] [address] Sep, Chronic pain G89.29 [facility] [address] [place] [id number] [address] [place] [phone] Sep, [facility] [address] [place] [id number] [address] [place] [id number] 25 Sep, 2017 Bilateral primary osteoarthr itis of knee M17.0 [place] [address] [place] [id number] [address] [place] [id number] 18 Sep, 2017 Generalized edema R60.1 [place] [address] [place] [id number] [address] [place] [id number] 16 Sep, 2017 Bipolar I disorder, most rec ent episode (or current) mixed, moderate F31.62 [place] [address] [place] [id number] [address] [place] [id number] 15 Sep, 2017 Hypoxia R09.02 ; Other hyper volemia E87.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 ; Anemia of chronic illness D63.8 and BMI 50.0- 59.9, adult Z68.43 [place] [address] [place] [id number] [address] [place] [id number] Sep, [place] [address] [place] [id number] [address] [place] [phone] Sep, Bipolar I disorder, most rec ent episode (or current) mixed, moderate F31.62 [place] [address] [place] [id number] [address] [place] [address] Aug, Chronic pain G89.29 [place] [address] [place] [id number] [address] [place] [phone] Aug, Generalized edema R60.1 [place] [address] [facility] [id number] [address] [place] [phone] Aug, [place] [address] [place] [id number] [address] [place] [id number] Aug, [place] [address] [facility] [id number] [address] [place] [phone] 14 Aug, 2017 Bipolar I disorder, most rec ent episode (or current) mixed, moderate F31.62 [place] [address] [facility] [id number] [address] [place] [id number] Aug, Bipolar I disorder, most rec ent episode (or current) mixed, moderate F31.62 [place] [address] [facility] [id number] [address] [place] [phone] Aug, Chronic pain G89.29 [place] [address] [place] [id number] [address] [place] [address] Jul, Bipolar I disorder, most rec ent episode (or current) mixed, moderate F31.62 [place] [address] [facility] [id number] [address] [place] [id number] Jul, Bipolar I disorder, most rec ent episode (or current) mixed, moderate F31.62 and BMI 60.0-69.9, adult Z68.44 [place] [address] [place] [id number] [address] [place] [id number] Jul, Bipolar I disorder, most rec ent episode (or current) mixed, moderate F31.62 [place] [address] [place] [id number] [address] [place] [id number] Jul, Chronic pain G89.29 [place] [address] [place] [id number] [address] [place] [address] Jul, Bipolar I disorder, most rec ent episode (or current) mixed, moderate F31.62 [place] [address] [place] [id number] [address] [place] [phone] Jun, Polyneuropathy associated wi th underlying disease G63 and Diabetes E11.9 [place] [address] [facility] [id number] [address] [place] [id number] Jun, Bipolar I disorder, most rec ent episode (or current) mixed, moderate F31.62 [place] [address] [facility] [id number] [address] [place] [id number] 09 Jun, 2017 Chronic pain G89.29 [place] [address] [place] [id number] [address] [place] [id number] May, Bipolar I disorder, most rec ent episode (or current) mixed, moderate F31.62 [facility] [address] [id number] [address] [place], [place] [phone] May, Bipolar I disorder, most rec ent episode (or current) mixed, moderate F31.62 [facility] [address] [id number] [address] [place] [id number] May, Diabetic polyneuropathy asso ciated with type 2 diabetes mellitus E11.42 [facility] [address] [id number] [address] [place] [phone] 18 May, 2017 Bipolar I disorder, most rec ent episode (or current) mixed, moderate F31.62 [facility] [address] [id number] [address] [place] [id number] 13 May, 2017 Bipolar I disorder, most rec ent episode (or current) mixed, moderate F31.62 [facility] [address] [id number] [address] [place] [address] May, Chronic pain G89.29 [facility] [address] [id number] [address] [place] [phone] Apr, Bipolar I disorder, most rec ent episode (or current) mixed, moderate F31.62 [facility] [address] [id number] [address] [place] [phone] Apr, [facility] [address] [id number] [address] [place] [phone] Apr, Chronic pain G89.29 and DM n euro manif type II E11.49 [facility] [address] [id number] [address] [place] [phone] Apr, [facility] [address] [id number] [address] [place] [phone] Apr, Bipolar I disorder, most rec ent episode (or current) mixed, moderate F31.62 [facility] [address] [id number] [address] [place], [place] [phone] Apr, Chronic pain G89.29 [facility] [address] [facility] [id number] [address] [place] [address] Apr, Iliotibial band syndrome, le ft M76.32 [facility] [address] [facility] [id number] [address] [place] [id number] Apr, Bipolar I disorder, most rec ent episode (or current) mixed, moderate F31.62 [facility] [address] [facility] [id number] [address] [place] [phone] Mar, Bipolar I disorder, most rec ent episode (or current) mixed, moderate F31.62 [place] [address] [facility] [id number] [address] [place] [phone] Mar, Bipolar I disorder, most rec ent episode (or current) mixed, moderate F31.62 [place] [address] [place] [id number] [address] [place] [id number] Mar, [facility] [address] [facility] [id number] [address] [place] [id number] Mar, Bipolar I disorder, most rec ent episode (or current) mixed, moderate F31.62 [facility] [address] [facility] [id number] [address] [place] [phone] Mar, Chronic pain G89.29 [facility] [address] [facility] [id number] [address] [place] [phone] Mar, Bipolar I disorder, most rec ent episode (or current) mixed, moderate F31.62 [facility] [address] [facility] [id number] [address] [place] [phone] Mar, Bipolar I disorder, most rec ent episode (or current) mixed, moderate F31.62 [facility] [address] [facility] [id number] [address] [place] [id number] Mar, Acute pain of left knee M25. 562 ; Left hip pain M25.552 ; Generalized edema R60.1 and Tongue swelling R22.0 [facility] [address] [facility] [id number] [address] [place] [id number] Mar, [facility] [address] [facility] [id number] [address] [place] [phone] Feb, Chronic pain G89.29 [facility] [address] [facility] [id number] [address] [place] [phone] Feb, Diabetes E11.9 [facility] [address] [facility] [id number] [address] [place] [phone] January, Chronic pain G89.29 [facility] [address] [facility] [id number] [address] [place] [phone] January, [facility] [address] [facility] [id number] [address] [place] [phone] January, Bipolar I disorder, most rec ent episode (or current) mixed, moderate F31.62 [facility] [address] [place] [id number] [address] [place] [id number] Dec, Bipolar I disorder, most rec ent episode (or current) mixed, moderate F31.62 [facility] [address] [facility] [id number] [address] [place] [id number] Dec, Chronic pain G89.29 [facility] [address] [place] [id number] [address] [place] [phone] Dec, Bipolar I disorder, most rec ent episode (or current) mixed, moderate F31.62 [facility] [address] [facility] [id number] [address] [place] [phone] Dec, Diabetes E11.9 ; Essential h ypertension I10 ; Chronic pain G89.29 and Morbid obesity E66.01 [facility] [address] [facility] [id number] [address] [place] [id number] Dec, [facility] [address] [place] [id number] [address] [place] [phone] Dec, Bipolar I disorder, most rec ent episode (or current) mixed, moderate F31.62 [facility] [address] [id number] [address] [place] [phone] Dec, Bipolar I disorder, most rec ent episode (or current) mixed, moderate F31.62 [facility] [address] [id number] [address] [place] [phone] Nov, Chronic pain G89.29 [facility] [address] [id number] [address] [place] [phone] Nov, Bipolar I disorder, most rec ent episode (or current) mixed, moderate F31.62 [facility] [address] [id number] [address] [place] [phone] Nov, [facility] [address] [id number] [address] [place] [phone] Nov, Bipolar I disorder, most rec ent episode (or current) mixed, moderate F31.62 [facility] [address] [id number] [address] [place] [id number] Nov, Bipolar I disorder, most rec ent episode (or current) mixed, moderate F31.62 [facility] [address] [id number] [address] [place] [id number] Nov, [facility] [address] [id number] [address] [place] [phone] Nov, [facility] [address] [id number] [address] [place] [id number] Nov, [facility] [address] [id number] [address] [place] [phone] Oct, Chronic pain G89.29 [facility] [address] [id number] [address] [place] [phone] Oct, Bipolar I disorder, most rec ent episode (or current) mixed, moderate F31.62 [facility] [address] [id number] [address] [place] [phone] Oct, [facility] [address] [id number] [address] [place] [phone] Oct, Chronic pain G89.29 ; Diabet es E11.9 ; Anxiety F41.9 and 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 [facility] [address] [id number] [address] [place] [phone] Oct, [facility] [address] [id number] [address] [place] [address] Oct, Diabetes E11.9 [facility] [address] [id number] [address] [place] [id number] Oct, Bipolar I disorder, most rec ent episode (or current) mixed, moderate F31.62 [facility] [address] [facility] [id number] [address] [place] [phone] Sep, Chronic pain G89.29 [facility] [address] [facility] [id number] [address] [place] [id number] Sep, Chronic pain G89.29 [facility] [address] [facility] [id number] [address] [place] [address] Aug, Chronic pain G89.29 [facility] [address] [facility] [id number] [address] [place] [id number] Jul, [facility] [address] [facility] [id number] [address] [place] [id number] Jul, Diabetes E11.9 [facility] [address] [id number] [address] [place] [id number] Jul, Chronic pain G89.29 [facility] [address] [facility] [id number] [address] [place] [phone] Jul, Bipolar I disorder, most rec ent episode (or current) mixed, moderate F31.62 [facility] [address] [facility] [id number] [address] [place] [phone] Jun, Bipolar I disorder, most rec ent episode (or current) mixed, moderate F31.62 [facility] [address] [id number] [address] [place] [phone] Jun, [facility] [address] [facility] [id number] [address] [place] [id number] Jun, Bipolar I disorder, most rec ent episode (or current) mixed, moderate F31.62 [facility] [address] [facility] [id number] [address] [place] [address] May, Insomnia, unspecified type G 47.00 [facility] [address] [id number] [address] [place] [id number] May, Bipolar I disorder, most rec ent episode (or current) mixed, moderate F31.62 [place] [id number] [facility] [id number] [address] [place] [phone] May, [facility] [address] [facility] [id number] [address] [place] [id number] May, Bipolar I disorder, most rec ent episode (or current) mixed, moderate F31.62 [facility] [address] [facility] [id number] [address] [place] [address] May, Diabetes E11.9 and Essential hypertension I10 [facility] [address] [facility] [id number] [address] [place] [address] Apr, Chronic pain G89.29 [facility] [address] [id number] [address] [place] [id number] Apr, Bipolar I disorder, most rec ent episode (or current) mixed, moderate F31.62 [facility] [address] [facility] [id number] [address] [place] [id number] Apr, [facility] [address] [facility] [id number] [address] [place] [id number] Apr, [facility] [address] [facility] [id number] [address] [place] [address] Mar, Chronic pain G89.29 ; Headac he, unspecified headache type R51 ; Neuropathy G62.9 ; Pain of right hip joint M25.551 and Essential hypertension I10 [place] [address] [place] [id number] [address] [place] [id number] Mar, Chronic pain G89.29 [facility] [address] [place] [id number] [address] [place] [id number] Mar, Bipolar I disorder, most rec ent episode (or current) mixed, moderate F31.62 [place] [address] [address] Feb, Bipolar I disorder, most rec ent episode (or current) mixed, moderate F31.62 and Insomnia, unspecified type G47.00 [place] [address] [place] [id number] [address] [place] [address] Feb, Chronic pain G89.29 [place] [address] [place] [id number] [address] [place] [id number] Feb, Bipolar I disorder, most rec ent episode (or current) mixed, moderate F31.62 [place] [address] [address] January, Bipolar I disorder, most rec ent episode (or current) mixed, moderate F31.62 [place] [id number] [place] [address] January, Chronic pain G89.29 [place] [address] [place] [id number] [address] [place] [address] January, Chronic pain G89.29 and Esse ntial hypertension I10 [place] [address] [place] [id number] [place] [address] January, Bipolar I disorder, most rec ent episode (or current) mixed, moderate F31.62 [place] [id number] [place] [id number] Dec, [facility] [address] [id number] [address] [place] [phone] Dec, [facility] [address] [facility] [id number] [address] [place] [phone] Dec, [facility] [address] [facility] [id number] [address] [place] [phone] Dec, [facility] [address] [facility] [id number] [address] [place] [address] Nov, Reactive airway disease J45. 909 [facility] [address] [facility] [id number] [address] [place] [phone] Nov, [facility] [address] [facility] [id number] [address] [place] [phone] Nov, [facility] [address] [facility] [id number] [address] [place] [phone] Nov, [facility] [address] [facility] [id number] [address] [place] [phone] Nov, [facility] [address] [facility] [id number] [address] [place] [id number] Nov, Onychomycosis B35.1 ; Hammer toe M20.40 ; [place] or callus L84 and DM neuro manif type II E11.49 [facility] [address] [facility] [id number] [address] [place] [id number] Nov, Chronic pain G89.29 ; Leukoc ytosis D72.829 and Diabetes E11.9 [facility] [address] [facility] [id number] [address] [place] [phone] Nov, [facility] [address] [facility] [id number] [address] [place] [phone] Oct, Bronchitis J40 [facility] [address] [facility] [id number] [address] [place] [phone] Oct, [facility] [address] [facility] [id number] [address] [place] [id number] Oct, [facility] [address] [place] [id number] [address] [place] [phone] Oct, Mastoiditis, unspecified lat erality H70.90 and Type 2 diabetes mellitus with complication E11.8 [facility] [address] [place] [id number] [address] [place] [id number] Sep, [facility] [address] [id number] Sep, Dysuria R30.0 ; Cough R05 ; Benign prostatic hyperplasia with lower urinary tract symptoms, unspecified morphology N40.1 ; Hypokalemia E87.6 and Eustachian tube dysfunction, unspecified laterality H69.80 [place] [address] [id number] Sep, Moderate mixed bipolar I dis order F31.62 [place] [address] [phone] Sep, Hypokalemia E87.6 [place] [address] [id number] Sep, [facility] [address] [id number] Sep, Upper respiratory tract infe ction, unspecified type J06.9 [place] [address] [place] [id number] [address] [place] [phone] Aug, [place] [place] [address] [place] [id number] [address] [place] [address] Aug, Dysuria R30.0 [place] [address] [address] Aug, [facility] [address] [place] [id number] [address] [place] [address] Jul, [facility] [address] [address] Jul, [facility] [address] [id number] [address] [place] [address] Jul, [facility] [address] [id number] [address] [place] [address] Jul, [facility] [address] [id number] [address] [place] [address] Jun, [facility] [address] [id number] [address] [place] [address] Jun, [facility] [address] [id number] [address] [place] [address] Jun, [facility] [address] [id number] [address] [place] [address] May, [facility] [address] [id number] [address] [place] [address] May, Bipolar I disorder, most rec ent episode (or current) mixed, moderate 296.62 [facility] [address] [id number] [address] [place] [address] May, [facility] [address] [id number] [address] [place] [address] May, Bipolar I disorder, most rec ent episode (or current) mixed, moderate 296.62 and Major depressive disorder, recurrent episode, severe, specified as with psychotic behavior 296.34 [facility] [address] [id number] [address] [place] [address] May, Bipolar I disorder, most rec ent episode (or current) mixed, moderate 296.62 [facility] [address] [id number] [address] [place] [address] May, [facility] [address] [id number] [address] [place] [address] Apr, [facility] [address] [id number] [address] [place] [address] Apr, [facility] [address] [place] [id number] [address] [place] [address] Apr, Unspecified disorder of kidn ey and ureter 593.9 and Diabetes mellitus type 2, uncontrolled 250.02 [facility] [address] [place] [id number] [address] [place] [address] Apr, [facility] [address] [place] [id number] [place] [address] Apr, [facility] [address] [id number] [place] [address] Apr, [facility] [address] [address] Apr, [facility] [address] [place] [id number] [place] [address] Apr, Diabetes mellitus type II, u ncontrolled 250.02 [facility] [address] [address] Apr, [facility] [address] [address] Mar, [facility] [address] [address] Mar, [facility] [address] [address] Mar, [facility] [address] [place] [id number] [address] [place] [address] Mar, Major depressive disorder, r ecurrent episode, severe, specified as with psychotic behavior 296.34 and Bipolar I disorder, most recent episode (or current) mixed, moderate 296.62 [facility] [address] [address] Mar, Diabetes 250.00 ; Anuria 788 .5 ; Nausea and vomiting 787.01 and Diarrhea 787.91 [facility] [address] [place] [id number] [address] [place] [address] Mar, Diabetes 250.00 [facility] [address] [place] [id number] [address] [place] [address] Mar, [facility] [address] [address] Mar, Diabetes 250.00 [facility] [address] [address] Mar, [facility] [address] [address] Mar, [facility] [address] [address] Mar, [facility] [address] [address] Mar, [facility] [address] [address] Mar, Bipolar I disorder, most rec ent episode (or current) mixed, moderate 296.62 and Major depressive disorder, recurrent episode, severe, specified as with psychotic behavior 296.34 [facility] [address] [address] Mar, Magnesium deficiency 275.2 ; Hypokalemia 276.8 ; Nausea & vomiting 787.01 and Diabetes mellitus type 2, uncontrolled 250.02 [facility] [address] [place] [id number] [address] [place] [address] Feb, [facility] [address] [place] [id number] [address] [place] [address] Feb, Bipolar I disorder, most rec ent episode (or current) mixed, moderate 296.62 [facility] [address] [place] [id number] [address] [place] [address] Feb, Nausea and vomiting 787.01 ; Left elbow pain 719.42 ; Anuria 788.5 and Diabetes 250.00 [facility] [address] [place] [address] Feb, [facility] [address] [id number] [address] [place] [address] Feb, Hypopotassemia 276.8 and Hyp okalemia 276.8 [facility] [address] [facility] [id number] [address] [place] [address] Feb, Hypopotassemia 276.8 and Hyp okalemia 276.8 [facility] [address] [facility] [id number] [address] [place] [address] Feb, Seborrheic keratoses 702.19 [facility] [address] [place] [id number] [place] [address] Feb, Hypopotassemia 276.8 and Low magnesium levels 275.2 [facility] [address] [place] [id number] [address] [place] [address] January, [facility] [address] [place] [id number] [address] [place] [address] January, [facility] [address] [place] [id number] [address] [place] [address] January, [facility] [address] [place] [id number] [place] [address] January, Scalp lesion 709.9 [facility] [address] [place] [id number] [address] [place] [address] January, [facility] [address] [place] [id number] [place] [address] Dec, Tear of medial cartilage or meniscus of knee, current 836.0 and 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 [facility] [address] [place] [id number] [address] [place] [address] Dec, [facility] [address] [place] [id number] [address] [place] [address] Dec, [facility] [address] [place] [id number] [address] [place] [id number] 28 Dec, 2014 Squamous cell carcinoma, 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 [address] [id number] [address] [place] [address], [place] [address] Nov, [facility] [address] [id number] [address] [place] [address], [place] [address] Nov, [facility] [address] [id number] [address] [place] [address], [place] [address] Nov, [facility] [address] [id number] [address] [place] [address], [place] [address] Nov, [facility] [address] [id number] [address] [place] [address], [place] [address] Nov, [facility] [address] [id number] [address] [place] [address], [place] [address] Nov, [facility] [address] [id number] [address] [place] [address], [place] [address] Nov, [facility] [address] [id number] [address] [place] [address], [place] [address] Nov, [facility] [address] [id number] [address] [place] [address], [place] [address] Nov, [facility] [address] [id number] [address] [place] [address], [place] [address] Nov, [facility] [address] [id number] [address] [place] [address], [place] [address] Nov, [facility] [address] [id number] [address] [place] [address], [place] [address] Oct, [facility] [address] [id number] [address] [place] [address], [place] [address] Oct, 2014 [facility] [address] [id number] [address] [place] [address], [place] [address] Oct, 2014 [facility] [address] [id number] [address] [place] [address], [place] [address] Oct, 2014 [facility] [address] [id number] [address] [place] [address], [place] [address] Oct, 2014 [facility] [address] [id number] [address] [place] [address], [place] [address] Oct, 2014 [facility] [address] [id number] [address] [place] [address], [place] [address] Oct, 2014 [facility] [address] [id number] [address] [place] [address], [place] [address] Oct, 2014 [facility] [address] [id number] [address] [place] [address], [place] [address] Oct, [facility] [address] [id number] [address] [place] [address], [place] [address] Sep, [facility] [address] [id number] [address] [place] [address], [place] [address] Sep, [facility] [address] [id number] [address] [place] [address], [place] [address] Sep, [facility] [address] [id number] [address] [place] [address], [place] [address] Sep, [facility] [address] [id number] [address] [place] [address], [place] [address] Sep, [facility] [address] [id number] [address] [place] [address], [place] [address] Sep, [facility] [address] [id number] [address] [place] [address], [place] [address] Sep, [facility] [address] [id number] [address] [place] [address], [place] [address] Sep, [facility] [address] [id number] [address] [place] [address], [place] [address] Sep, [facility] [address] [id number] [address] [place] [address], [place] [address] Sep, [facility] [address] [id number] [address] [place] [address], [place] [address] Sep, [facility] [address] [id number] [address] [place] [address], [place] [address] Sep, [facility] [address] [id number] [address] [place] [address], [place] [address] Sep, [facility] [address] [id number] [address] [place] [address], [place] [address] Sep, [facility] [address] [id number] [address] [place] [address], [place] [address] Sep, [facility] [address] [id number] [address] [place] [address], [place] [address] Sep, [facility] [address] [id number] [address] [place] [address], [place] [address] Aug, [facility] [address] [id number] [address] [place] [address], [place] [address] Aug, [facility] [address] [id number] [address] [place] [address], [place] [address] Aug, [facility] [address] [id number] [address] [place] [address], [place] [address] Aug, [facility] [address] [id number] [address] [place] [address], [place] [address] Aug, [facility] [address] [id number] [address] [place] [address], [place] [address] Aug, [facility] [address] [id number] [address] [place] [address], [place] [address] Aug, [facility] [address] [id number] [facility] [place] [address] Aug, [facility] [address] [id number] [facility] [place] [address] Aug, [facility] [address] [id number] [facility] [place] [address] Aug, [facility] [address] [id number] [address] [place] [address], [place] [address] Aug, [facility] [id number] Aug, [facility] [address] [id number] [address] [place] [address], [place] [address] Aug, [facility] [address] [id number] [address] [place] [address], [place] [address] Aug, [facility] [address] [id number] [address] [place] [address], [place] [address] Aug, [facility] [address] [id number] [address] [place] [address], [place] [address] Aug, [facility] [address] [id number] [address] [place] [address], [place] [address] Aug, [facility] [address] [id number] [address] [place] [address], [place] [address] Aug, [facility] [address] [id number] [address] [place] [address], [place] [address] Aug, [facility] [address] [id number] [address] [place] [address], [place] [address] Aug, [facility] [address] [id number] [address] [place] [address], [place] [address] Aug, [facility] [address] [id number] [address] [place] [address], [place] [address] Aug, [facility] [address] [id number] [address] [place] [address], [place] [address] Aug, [facility] [address] [id number] [address] [place] [address], [place] [address] Aug, [facility] [address] [id number] [address] [place] [address], [place] [address] Aug, [facility] [address] [id number] [address] [place] [address], [place] [address] Aug, [facility] [address] [id number] [address] [place] [address], [place] [address] Aug, [facility] [address] [id number] [address] [place] [address], [place] [address] Aug, [facility] [address] [id number] [address] [place] [address], [place] [address] Aug, [facility] [address] [id number] [address] [place] [address], [place] [address] Aug, [facility] [address] [id number] [address] [place] [address], [place] [address] Jul, [facility] [address] [id number] [address] [place] [address], [place] [address] Jul, [facility] [address] [id number] [address] [place] [address], [place] [address] Jul, [facility] [address] [id number] [address] [place] [address], [place] [address] Jul, [facility] [address] [id number] [address] [place] [address], [place] [address] Jul, [facility] [address] [id number] [address] [place] [address], [place] [address] Jul, [facility] [address] [id number] [address] [place] [address], [place] [address] Jul, [facility] [address] [id number] [address] [place] [address], [place] [address] Jul, [facility] [address] [id number] [address] [place] [address], [place] [address] Jul, [facility] [address] [id number] [address] [place] [address], [place] [address] Jul, [facility] [address] [id number] [address] [place] [address], [place] [address] Jun, [facility] [address] [id number] [address] [place] [address], [place] [address] Jun, [facility] [address] [id number] [address] [place] [address], [place] [address] Jun, [facility] [address] [id number] [address] [place] [address], [place] [address] Jun, [facility] [address] [id number] [address] [place] [address], [place] [address] Jun, [facility] [address] [id number] [address] [place] [address], [place] [address] Jun, [facility] [address] [id number] [address] [place] [address], [place] [address] Jun, [facility] [address] [id number] [address] [place] [address], [place] [address] Jun, [facility] [address] [id number] [address] [place] [address], [place] [address] Jun, [facility] [address] [id number] [address] [place] [address], [place] [address] Jun, [facility] [address] [id number] [address] [place] [address], [place] [address] 29 May, 2014 [facility] [address] [id number] [address] [place] [address], [place] [address] 29 May, 2014 [facility] [address] [id number] [address] [place] [address], [place] [address] May, [facility] [address] [id number] [address] [place] [address], [place] [address] May, 2013 [facility] [address] [id number] [facility] [place] [address] 17 May, 2013 [facility] [address] [id number] [address] [place] [address], [place] [address] 17 May, 2013 [facility] [address] [id number] [address] [place] [address], [place] [address] 15 May, 2013 [facility] [address] [id number] [address] [place] [address], [place] [address] 15 May, 2013 [facility] [address] [id number] [address] [place] [address], [place] [address] 15 May, 2013 [facility] [address] [id number] [address] [place] [address], [place] [address] 15 May, 2013 [facility] [address] [id number] [address] [place] [address], [place] [address] 10 May, 2013 [facility] [address] [id number] [address] [place] [address], [place] [address] 10 May, 2013 [facility] [address] [id number] [address] [place] [address], [place] [address] 09 May, 2013 [facility] [address] [id number] [address] [place] [address], [place] [address] 09 May, 2013 [facility] [address] [id number] [address] [place] [address], [place] [address] 04 May, 2013 [facility] [address] [id number] [address] [place] [address], [place] [address] May, 2013 [facility] [address] [id number] [address] [place] [address], [place] [address] Apr, [facility] [address] [id number] [address] [place] [address], [place] [address] Apr, [facility] [address] [id number] [address] [place] [address], [place] [address] Apr, [facility] [address] [id number] [address] [place] [address], [place] [address] Apr, [facility] [address] [id number] [facility] [place] [address] Apr, [facility] [address] [id number] [address] [place] [address], [place] [address] Apr, [facility] [address] [id number] [address] [place] [address], [place] [address] Apr, [facility] [address] [id number] [address] [place] [address], [place] [address] Apr, [facility] [address] [id number] [address] [place] [address], [place] [address] Apr, [facility] [address] [id number] [address] [place] [address], [place] [address] Apr, [facility] [address] [id number] [address] [place] [address], [place] [address] Apr, [facility] [address] [id number] [address] [place] [address], [place] [address] Apr, [facility] [address] [id number] [address] [place] [address], [place] [address] Apr, [facility] [address] [id number] [address] [place] [address], [place] [address] Apr, [facility] [address] [id number] [address] [place] [address], [place] [address] Apr, [facility] [address] [id number] [address] [place] [address], [place] [address] Mar, [facility] [address] [id number] [address] [place] [address], [place] [address] Mar, [facility] [address] [id number] [address] [place] [address], [place] [address] Mar, [facility] [address] [id number] [address] [place] [address], [place] [address] Mar, [facility] [address] [id number] [facility] [place] [address] Mar, 2013 [facility] [address] [id number] [address] [place] [address], [place] [address] Mar, 2013 [facility] [address] [id number] [address] [place] [address], [place] [address] Mar, 2013 [facility] [address] [id number] [address] [place] [address], [place] [address] Mar, 2013 [facility] [address] [id number] [address] [place] [address], [place] [address] Mar, 2013 [facility] [address] [id number] [address] [place] [address], [place] [address] Mar, 2013 [facility] [address] [id number] [address] [place] [address], [place] [address] Mar, 2013 [facility] [address] [id number] [address] [place] [address], [place] [address] Mar, 2013 [facility] [address] [id number] [address] [place] [address], [place] [address] Mar, 2013 [facility] [address] [id number] [address] [place] [address], [place] [address] Mar, 2013 [facility] [address] [id number] [address] [place] [address], [place] [address] Mar, 2013 [facility] [address] [id number] [address] [place] [address], [place] [address] Mar, 2013 [facility] [address] [id number] [address] [place] [address], [place] [address] Mar, [facility] [address] [id number] [address] [place] [address], [place] [address] Mar, [facility] [address] [id number] [address] [place] [address], [place] [address] Feb, [facility] [address] [id number] [address] [place] [address], [place] [address] Feb, [facility] [address] [id number] [address] [place] [address] Feb, [facility] [address] [id number] [address] [place] [address] Feb, [facility] [address] [id number] [address] [place] [address] Feb, [facility] [address] [id number] [address] [place] [address] Feb, [facility] [address] [id number] [address] [place] [address] Feb, [facility] [address] [id number] [address] [place] [address], [place] [address] Feb, [facility] [address] [id number] [address] [place] [address], [place] [address] Feb, [facility] [place] [facility] [address] [id number] [address] [place] [address], [place] [address] Feb, [facility] [place] [address] [id number] [address] [place] [address], [place] [address] Feb, [facility] [place] [facility] [address] [id number] [address] [place] [address], [place] [address] Feb, [facility] [place] [facility] [address] [id number] [address] [place] [address], [place] [address] Feb, [facility] [place] [facility] [address] [id number] [address] [place] [address], [place] [address] Feb, [facility] [place] [facility] [address] [id number] [facility] [place] [address] January, [facility] [place] [facility] [address] [id number] [address] [place] [address], [place] [address] January, [facility] [place] [facility] [address] [id number] [facility] [place] [address] January, [facility] [place] [facility] [address] [id number] [address] [address] January, [facility] [address] [id number] [address] [place] [address], [place] [address] January, [facility] [address] [id number] [address] [place] [address], [place] [address] January, [facility] [address] [id number] [address] [place] [address], [place] [address] January, [facility] [address] [id number] [address] [place] [address], [place] [address] January, [facility] [address] [id number] [address] [place] [address], [place] [address] January, [facility] [address] [id number] [address] [place] [address], [place] [address] January, [facility] [address] [id number] [address] [place] [address], [place] [address] January, [facility] [address] [id number] [address] [place] [address], [place] [address] January, [facility] [address] [id number] [address] [place] [address], [place] [address] January, [facility] [address] [id number] [address] [place] [address], [place] [address] January, [facility] [address] [id number] [address] [place] [address], [place] [address] Dec, [facility] [address] [id number] [address] [place] [address], [place] [address] Dec, [facility] [address] [id number] [address] [place] [address], [place] [address] Dec, [facility] [address] [id number] [address] [place] [address], [place] [address] Dec, [facility] [address] [id number] [address] [place] [address], [place] [address] Dec, [facility] [address] [id number] [facility] [place] [address] Dec, [facility] [address] [id number] [address] [place] [address], [place] [address] Dec, [facility] [address] [id number] [address] [place] [address], [place] [address] Dec, [facility] [address] [id number] [address] [place] [address], [place] [address] Dec, [facility] [address] [id number] [address] [place] [address], [place] [address] Dec, [facility] [address] [id number] [address] [place] [address], [place] [address] Nov, [facility] [address] [id number] [address] [place] [address], [place] [address] Nov, [facility] [address] [id number] [address] [place] [address], [place] [address] Nov, [facility] [address] [id number] [address] [place] [address], [place] [address] Nov, [facility] [address] [id number] [address] [place] [address], [place] [address] Nov, [facility] [address] [id number] [address] [place] [address], [place] [address] Nov, [facility] [address] [id number] [address] [place] [address], [place] [address] Nov, [facility] [address] [id number] [address] [place] [address], [place] [address] Nov, [facility] [address] [id number] [address] [place] [address], [place] [address] Nov, [facility] [address] [id number] [address] [place] [address], [place] [address] Nov, [facility] [address] [id number] [address] [place] [address], [place] [address] Oct, [facility] [address] [id number] [address] [place] [address], [place] [address] Oct, [facility] [address] [id number] [address] [place] [address], [place] [address] Oct, [facility] [address] [id number] [address] [place] [address], [place] [address] Oct, [facility] [address] [id number] [address] [place] [address], [place] [address] Oct, [facility] [address] [id number] [address] [place] [address], [place] [address] Oct, [facility] [address] [id number] [address] [place] [address], [place] [address] Oct, [facility] [address] [id number] [address] [place] [address], [place] [address] Oct, [facility] [address] [id number] [address] [place] [address], [place] [address] Oct, [facility] [address] [id number] [address] [place] [address], [place] [address] Oct, [facility] [address] [id number] [address] [place] [address], [place] [address] Oct, [facility] [place] [facility] [address] [id number] [address] [place] [address], [place] [address] Oct, [facility] [address] [id number] [address] [place] [address], [place] [address] Oct, [facility] [place] [address] [id number] [address] [place] [address], [place] [address] Oct, [facility] [address] [id number] [address] [place] [address], [place] [address] Sep, [facility] [place] [address] [id number] [address] [place] [address], [place] [address] Sep, [facility] [address] [id number] [address] [place] [address], [place] [address] 15 Sep, 2013 [facility] [address] [id number] [address] [place] [address], [place] [address] 15 Sep, 2013 [facility] [address] [id number] [address] [place] [address], [place] [address] 14 Sep, 2013 [facility] [address] [id number] [address] [place] [address], [place] [address] Sep, [facility] [address] [id number] [address] [place] [address], [place] [address] Sep, [facility] [address] [id number] [address] [place] [address], [place] [address] Sep, [facility] [address] [id number] [address] [place] [address], [place] [address] Sep, [facility] [address] [id number] [address] [place] [address], [place] [address] 08 Sep, 2013 [facility] [address] [id number] [address] [place] [address], [place] [address] Aug, [facility] [address] [id number] [address] [place] [address], [place] [address] Aug, [facility] [address] [id number] [address] [place] [address], [place] [address] Jul, [facility] [address] [id number] [address] [place] [address], [place] [address] Jul, [facility] [place] [address] [id number] [address] [place] [address], [place] [address] Jul, [facility] [place] [facility] [address] [id number] [address] [place] [address], [place] [address] Jul, [facility] [address] [id number] [address] [place] [address], [place] [address] Jul, [facility] [address] [id number] [address] [place] [address], [place] [address] 13 Jul, 2013 [facility] [address] [id number] [address] [place] [address], [place] [address] Jul, [facility] [address] [id number] [address] [place] [address], [place] [address] Jul, [facility] [address] [id number] [address] [place] [address], [place] [address] 08 Jul, 2013 [facility] [address] [id number] [address] [place] [address], [place] [address] 08 Jul, 2013 [facility] [address] [id number] [address] [place] [address], [place] [address] Jul, [facility] [address] [id number] [address] [place] [address], [place] [address] Jul, [facility] [address] [id number] [address] [place] [address], [place] [address] Jul, [facility] [address] [id number] [address] [place] [address], [place] [address] Jul, [facility] [address] [id number] [address] [place] [address], [place] [address] Jul, [facility] [address] [id number] [address] [place] [address], [place] [address] Jul, [facility] [address] [id number] [address] [place] [address], [place] [address] Jul, [facility] [address] [id number] [address] [place] [address], [place] [address] Jul, [facility] [address] [id number] [address] [place] [address], [place] [address] Jul, [facility] [address] [id number] [address] [place] [address], [place] [address] Jun, [facility] [address] [id number] [address] [place] [address] Jun, [facility] [address] [id number] [address] [place] [address], [place] [address] 16 Jun, 2012 [facility] [address] [id number] [address] [place] [address], [place] [address] 16 Jun, 2012 [facility] [address] [id number] [address] [place] [address], [place] [address] 16 Jun, 2012 [facility] [address] [id number] [address] [place] [address], [place] [address] 16 Jun, 2012 [facility] [address] [id number] [address] [place] [address], [place] [address] 10 Jun, 2012 [facility] [address] [id number] [address] [place] [address], [place] [address] 10 Jun, 2012 [facility] [address] [id number] [address] [place] [address], [place] [address] 09 Jun, 2012 [facility] [address] [id number] [address] [place] [address], [place] [address] 09 Jun, 2013 [facility] [address] [id number] [address] [place] [address], [place] [address] Jun, [facility] [address] [id number] [address] [place] [address], [place] [address] 26 May, 2012 [facility] [address] [id number] [address] [place] [address], [place] [address] 25 Sep, 2012 [facility] [address] [id number] [address] [place] [address], [place] [address] 19 Sep, 2012 [facility] [address] [id number] [address] [place] [address], [place] [address] 17 Sep, 2012 [facility] [address] [id number] [address] [place] [address], [place] [address] 11 Sep, 2012 [facility] [address] [id number] [address] [place] [address], [place] [address] 10 Sep, 2012 [facility] [address] [id number] [address] [place] [address], [place] [address] May, [facility] [address] [id number] [address] [place] [address], [place] [address] May, [facility] [address] [id number] [address] [place] [address], [place] [address] Apr, [facility] [address] [id number] [address] [place] [address], [place] [address] Apr, [facility] [address] [id number] [address] [place] [address], [place] [address] Apr, [facility] [address] [id number] [address] [place] [address], [place] [address] Apr, [facility] [address] [id number] [address] [place] [address], [place] [address] Apr, [facility] [address] [id number] [address] [place] [address], [place] [address] Mar, [facility] [address] [id number] [address] [place] [address], [place] [address] Mar, [facility] [address] [id number] [address] [place] [address], [place] [address] Mar, [facility] [address] [id number] [address] [place] [address], [place] [address] Mar, [facility] [address] [id number] [address] [place] [address], [place] [address] Mar, [facility] [address] [id number] [address] [place] [address], [place] [address] Mar, [facility] [address] [id number] [address] [place] [address], [place] [address] Mar, [facility] [address] [id number] [address] [place] [address], [place] [address] Mar, [facility] [address] [id number] [address] [place] [address], [place] [address] Feb, [facility] [address] [id number] [address] [place] [address], [place] [address] 10 Feb, 2013 [facility] [address] [id number] [address] [place] [address], [place] [address] January, [facility] [address] [id number] [address] [place] [address], [place] [address] January, [facility] [address] [id number] [address] [place] [address], [place] [address] Dec, [facility] [address] [id number] [address] [place] [address], [place] [address] Dec, [facility] [address] [id number] [address] [place] [address], [place] [address] Nov, [facility] [address] [id number] [address] [place] [address], [place] [address] Nov, [facility] [address] [id number] [address] [place] [address], [place] [address] Nov, [facility] [address] [id number] [address] [place] [address], [place] [address] Nov, [facility] [address] [id number] [address] [place] [address], [place] [address] Oct, [facility] [address] [id number] [address] [place] [address], [place] [address] Oct, [facility] [address] [id number] [address] [place] [address], [place] [address] Oct, [facility] [address] [id number] [address] [place] [address], [place] [address] Oct, [facility] [address] [id number] [address] [place] [address], [place] [address] 16 Oct, 2012 [facility] [address] [id number] [address] [place] [address], [place] [address] 14 Oct, 2012 [facility] [address] [id number] [address] [place] [address], [place] [address] 08 Oct, 2012 [facility] [address] [id number] [address] [place] [address], [place] [address] 07 Oct, 2012 [facility] [address] [id number] [address] [place] [address], [place] [address] 03 Oct, 2012 [facility] [address] [id number] [address] [place] [address], [place] [address] 30 Sep, 2012 [facility] [address] [id number] [address] [place] [address], [place] [address] Sep, [facility] [address] [id number] [address] [place] [address], [place] [address] Sep, [facility] [address] [id number] [address] [place] [address], [place] [address] Sep, [facility] [address] [id number] [address] [place] [address], [place] [address] Sep, [facility] [address] [id number] [address] [place] [address], [place] [address] Sep, [facility] [address] [id number] [address] [place] [address], [place] [address] Sep, [facility] [address] [id number] [address] [place] [address], [place] [address] Sep, [facility] [address] [id number] [address] [place] [address], [place] [address] Aug, [facility] [address] [id number] [address] [place] [address], [place] [address] Aug, [facility] [address] [id number] [address] [place] [address], [place] [address] Aug, [facility] [address] [id number] [address] [place] [address], [place] [address] Aug, [facility] [address] [id number] [address] [place] [address], [place] [address] Aug, [facility] [address] [id number] [address] [place] [address], [place] [address] Aug, [facility] [address] [id number] [address] [place] [address], [place] [address] Aug, [facility] [address] [id number] [address] [place] [address], [place] [address] Aug, [facility] [address] [id number] [address] [place] [address], [place] [address] Jul, [facility] [address] [id number] [address] [place] [address], [place] [address] Jul, [facility] [address] [id number] [address] [place] [address], [place] [address] Jul, [facility] [address] [id number] [address] [place] [address], [place] [address] Jul, [facility] [address] [id number] [address] [place] [address], [place] [address] Jul, [facility] [address] [id number] [address] [place] [address], [place] [address] Jul, [facility] [address] [id number] [address] [place] [address], [place] [address] Jun, [facility] [address] [id number] [address] [place] [address], [place] [address] Jun, [facility] [address] [id number] [address] [place] [address], [place] [address] Jun, [facility] [address] [id number] [address] [place] [address], [place] [address] Jun, [facility] [address] [id number] [address] [place] [address], [place] [address] Jun, [facility] [address] [id number] [address] [place] [address], [place] [address] Jun, [facility] [address] [id number] [address] [place] [address], [place] [address] Jun, [facility] [address] [id number] [address] [place] [address], [place] [address] Jun, [facility] [address] [id number] [address] [place] [address], [place] [address] Jun, [facility] [address] [id number] [address] [place] [address], [place] [address] May, [facility] [address] [id number] [address] [place] [address], [place] [address] 24 May, 2012 [facility] [address] [id number] [address] [place] [address], [place] [address] May, [facility] [address] [id number] [address] [place] [address], [place] [address] Apr, [facility] [address] [id number] [address] [place] [address], [place] [address] Apr, [facility] [address] [id number] [address] [place] [address], [place] [address] Apr, [facility] [address] [id number] [address] [place] [address], [place] [address] Apr, [facility] [address] [id number] [address] [place] [address], [place] [address] Apr, [facility] [address] [id number] [address] [place] [address], [place] [address] Apr, [facility] [address] [id number] [address] [place] [address], [place] [address] Mar, [facility] [address] [id number] [address] [place] [address], [place] [address] Mar, [facility] [address] [id number] [address] [place] [address], [place] [address] Mar, [facility] [address] [id number] [address] [place] [address], [place] [address] Mar, [facility] [address] [id number] [address] [place] [address] 29 Feb, 2012 [facility] [address] [id number] [address] [place] [address], [place] [address] Feb, [facility] [address] [id number] [address] [place] [address], [place] [address] Feb, [facility] [address] [id number] [address] [place] [address], [place] [address] Feb, [facility] [address] [id number] [address] [place] [address], [place] [address] Feb, [facility] [address] [id number] [address] [place] [address], [place] [address] January, [facility] [address] [id number] [address] [place] [address], [place] [address] January, [facility] [address] [id number] [address] [place] [address], [place] [address] January, [facility] [address] [id number] [address] [place] [address], [place] [address] January, [facility] [address] [id number] [address] [place] [address], [place] [address] January, [facility] [address] [id number] [address] [place] [address], [place] [address] January, [facility] [address] [id number] [address] [place] [address], [place] [address] Dec, [facility] [address] [id number] [address] [place] [address], [place] [address] Dec, [facility] [address] [id number] [address] [place] [address], [place] [address] Dec, [facility] [address] [id number] [address] [place] [address], [place] [address] Dec, [facility] [address] [id number] [address] [place] [address], [place] [address] Dec, [facility] [address] [id number] [address] [place] [address], [place] [address] 27 Nov, 2011 [facility] [address] [id number] [address] [place] [address], [place] [address] 14 Nov, 2011 [facility] [address] [id number] [address] [place] [address], [place] [address] 12 Nov, 2011 [facility] [address] [id number] [address] [place] [address], [place] [address] 07 Nov, 2011 [facility] [address] [id number] [address] [place] [address], [place] [address] 29 Oct, 2011 [facility] [address] [id number] [address] [place] [address], [place] [address] 28 Oct, 2011 [facility] [address] [id number] [address] [place] [address], [place] [address] 24 Oct, 2011 [facility] [address] [id number] [address] [place] [address], [place] [address] 13 Oct, 2011 [facility] [address] [id number] [address] [place] [address], [place] [address] 08 Oct, 2011 [facility] [facility] [address] [id number] [address] [place] [address], [place] [address] Sep, [facility] [address] [id number] [address] [place] [address], [place] [address] Sep, [facility] [address] [id number] [address] [place] [address], [place] [address] Sep, [facility] [address] [id number] [address] [place] [address], [place] [address] Sep, [facility] [address] [id number] [address] [place] [address], [place] [address] Sep, [facility] [address] [id number] [address] [place] [address], [place] [address] Sep, [facility] [address] [id number] [address] [place] [address], [place] [address] Aug, [facility] [address] [id number] [address] [place] [address], [place] [address] Aug, [facility] [address] [id number] [address] [place] [address], [place] [address] Aug, [facility] [address] [id number] [address] [place] [address], [place] [address] Jul, [facility] [address] [id number] [address] [place] [address], [place] [address] Jul, [facility] [address] [id number] [address] [place] [address], [place] [address] Jul, [facility] [address] [id number] [address] [place] [address], [place] [address] Jul, [facility] [address] [id number] [address] [place] [address], [place] [address] Jun, [facility] [address] [id number] [address] [place] [address], [place] [address] Jun, [facility] [address] [id number] [address] [place] [address], [place] [address] Jun, [facility] [address] [id number] [address] [place] [address], [place] [address] Jun, [facility] [address] [id number] [address] [place] [address] Jun, [facility] [address] [id number] [address] [place] [address] Jun, [facility] [address] [id number] [address] [place] [address], [place] [address] Mar, [facility] [address] [id number] [address] [place] [address], [place] [address] Dec, [facility] [address] [id number] [address] [place] [address], [place] [address] Dec, [facility] [address] [id number] [address] [place] [address], [place] [address] 18 Nov, 2010 [facility] [address] [id number] [address] [place] [address], [place] [address] 16 Nov, 2010 [facility] [address] [id number] [address] [place] [address], [place] [address] 10 Sep, 2010 [facility] [address] [id number] [address] [place] [address], [place] [address] 31 Aug, 2010 [facility] [address] [id number] [address] [place] [address], [place] [address] 29 Aug, 2010 [facility] [address] [id number] [address] [place] [address], [place] [address] 29 Aug, 2010 [facility] [address] [id number] [address] [place] [address], [place] [address] 29 Aug, 2010 [facility] [address] [id number] [address] [place] [address], [place] [address] 27 Aug, 2010 [facility] [address] [id number] [address] [place] [address], [place] [address] 14 Aug, 2010 [facility] [address] [id number] [address] [place] [address], [place] [address] 08 Aug, 2010 [facility] [address] [id number] [address] [place] [address], [place] [address] 08 Aug, 2010 [facility] [address] [id number] [address] [place] [address], [place] [address] 07 Aug, 2010 [facility] [address] [id number] [address] [place] [address], [place] [address] 06 Aug, 2010 [facility] [address] [id number] [address] [place] [address], [place] [address] 06 Aug, 2010 [facility] [address] [id number] [address] [place] [address], [place] [address] Aug, [facility] [address] [id number] [address] [place] [address], [place] [address] Jul, [facility] [address] [id number] [address] [place] [address], [place] [address] 30 Jul, 2010 [facility] [address] [id number] [address] [place] [address], [place] [address] 30 Jul, 2010 [facility] [address] [id number] [address] [place] [address], [place] [address] 17 Jul, 2010 [facility] [address] [id number] [address] [place] [address], [place] [address] Jul, [facility] [address] [id number] [address] [place] [address], [place] [address] Jul, [facility] [address] [id number] [address] [place] [address], [place] [address] 24 Jun, 2010 [facility] [address] [id number] [address] [place] [address], [place] [address] Jun, [facility] [address] [id number] [address] [place] [address], [place] [address] Jun, [facility] [address] [id number] [address] [place] [address], [place] [address] Jun, [facility] [address] [id number] [address] [place] [address], [place] [address] 16 Apr, 2010 [facility] [address] [id number] [address] [place] [address], [place] [address] Mar, [facility] [address] [id number] [address] [place] [address], [place] [address] Feb, [facility] [address] [id number] [address] [place] [address], [place] [address] January, [facility] [address] [id number] [address] [place] [address], [place] [address] 15 Dec, 2009 [facility] [address] [id number] [address] [place] [address], [place] [address] Nov, [facility] [address] [id number] [address] [place] [address] Aug, [facility] [address] [id number] [address] [place] [address], [place] [address] Aug, [facility] [address] [id number] [address] [place] [address] Aug, [facility] [address] [id number] [address] [place] [address] Jul, [facility] [address] [id number] [address] [place] [address] Jul, [facility] [address] [id number] [address] [place] [address] Jul, [facility] [address] [id number] [address] [place] [address] Jun, [facility] [address] [id number] [address] [place] [address] Jun, [facility] [address] [id number] [address] [place] [address] Jun, [facility] [address] [id number] [address] [place] [address] Jun, [facility] [address] [id number] [address] [place] [address] Jun, [facility] [address] [id number] [address] [place] [address] Jun, [facility] [address] [id number] [address] [place] [address] Apr, [facility] [address] [id number] [address] [place] [address] Apr, [facility] [address] [id number] [address] [place] [address] Feb, [facility] [address] [id number] [address] [place] [address] January, [facility] [address] [facility] [id number] [address] [place] [address] Dec, IMMUNIZATIONS No Known Immunizations SOCIAL HISTORY [...] Medical History skin cancer-basal cell R worship (removed ) Medical History Arthritis Medical History [...] 2009 Surgical History colonoscopy 2009 ([facility]), 2013 ([place] ) Surgical History heart cath: CAD w/ [...] History inability to urinate 09/16/15 Hospitalization History [facility] health ea rly 1999' Hospitalization History hyperkalemia 10/2017 Hospitalization History fluid in lung
--- OUTSIDE RECORDS SUMMARY | 2020-03-01 16:37 | XMS REPORT ---
Author Author Michele WASHBURN Organization [facility] Address [address] [place] [address] Care Team Providers Care Director Of Sports Performance Name Role Phone NOEMI WASHBURN Unavailable PROBLEMS Type Condition ICD9-CM Code FMY73-II Code Onset Dates Condition S tatus SNOMED Code Problem Leukocytosis D72.829 Active 0243343 06 Problem Bipolar I disorder, most recent episode (or curr ent) mixed, moderate F31.62 Active 19674980 Problem Reactive airway disease J45.909 Active 897884106933 Problem Anxiety F41.9 Active 96141765 Problem Insomnia, unspecified type G47.00 Act sharon 408935210 Problem Essential hypertension I10 Active 47100200 Problem Morbid obesity E66.01 Active 32841 6002 Problem Skin cancer C44.90 Active 39379435 7 Problem DM neuro manif type II E11.49 Active 59592823 Problem Mild cognitive impairment G31.84 Acti ve 088130884 Problem Benign prostatic hyperplasia with lower urinary tract symptoms, unspecified morphology N40.1 Active 15895 6007 Problem Chronic pain G89.29 Active 5476049 1 Problem Diabetes E11.9 Active 49842686 Problem Retinal edema H35.81 Active 372035 6 Problem Anemia of chronic illness D63.8 Acti ve 090338731 Problem Falling R29.6 Active 441935869 Problem Pressure ulcer of other site, stage 3 L89.893 Active 693119562 Problem 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 Active 098923938 Problem Eye exam abnormal R93.8 Active 16 5833778 Problem Pure hypercholesterolemia E78.00 Acti ve 420320804 Problem Dysuria R30.0 Active 63161688 Problem Bipolar disorder, in partial remission, most rec ent episode depressed F31.75 Active 58226332 Problem Hypokalemia E87.6 Active 10066933 Problem Other iron deficiency anemia D50.8 A ctive 37018359 Problem Eustachian tube dysfunction, unspecified laterality H69.80 Active 46619123 Problem Primary osteoarthritis of right knee M17.11 Active 429782275143890 Problem Cough R05 Active 37630448 Problem Bipolar disorder F31.9 Active 137 46753 Problem Chronic diastolic (congestive) heart failure I50.3 2 Active 236189785 Problem Psychophysiological insomnia F51.04 A ctive 110048545 Problem Gastroesophageal reflux disease without esophagitis K21.9 Active 578479016 Problem Polyneuropathy associated with underlying disease G63 Active 905976928 Problem Other secondary acute gout, 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 0 Active 182256316 Problem Diabetic polyneuropathy associated with type 2 d iabetes mellitus E11.42 Active 08388315 Problem Chronic lymphocytic leukemia C91.10 A ctive 78182705 Problem Bilateral primary osteoarthritis of knee M17.0 Active 951671781 Problem Type 2 diabetes mellitus with diabetic neuropathy, uns pecified E11.40 Active 07456598 Problem MCC (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 Z79.4 Active 035460882 Problem Lymphocytosis D72.820 Active 983742 09 Problem Mood disorder F39 Active 048226 05 Problem Bipolar I disorder, most recent episode depressed, moderat e F31.32 Active 730876534 ALLERGIES No Information ENCOUNTERS Encounter Location Date Diagnosis [facility] [address] [facility] [id number] [address] [place] [phone] Dec, [facility] [address] [facility] [id number] [address] [place] [address] Dec, [facility] [address] [facility] [id number] [address] [place] [address] Nov, Other secondary acute gout, 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 [facility] [address] [facility] [id number] [address] [place] [address] Nov, Gastroesophageal reflux dise ase without esophagitis K21.9 [facility] [address] [facility] [id number] [address] [place] [address] Nov, Chronic pain G89.29 [facility] [address] [facility] [id number] [address] [place] [address] Nov, Bipolar I disorder, most rec ent episode depressed, moderate F31.32 ; Anxiety F41.9 and Mild cognitive impairment G31.84 [facility] [address] [id number] [address] [place] [address] Nov, [facility] [address] [id number] [address] [place] [address] Nov, Syncope, unspecified syncope type R55 [facility] [address] [id number] [address] [place] [address] Nov, Mood disorder F39 [facility] [address] [id number] [address] [place] [address] Oct, Chronic pain G89.29 [facility] [address] [id number] [address] [place] [address] Oct, [facility] [address] [id number] [address] [place] [phone] Oct, Mood disorder F39 [facility] [address] [id number] [address] [place] [address] Oct, [facility] [address] [id number] [address] [place] [address] Oct, Bipolar disorder, in partial remission, most recent episode depressed F31.75 and Mild cognitive impairment G31.84 [facility] [address] [id number] [address] [place] [address] Oct, Mood disorder F39 [facility] [address] [id number] [address] [place] [address] Sep, [facility] [address] [id number] [address] [place] [address] Sep, Mood disorder F39 [facility] [address] [id number] [address] [place] [address] Sep, Bipolar disorder, in partial remission, most recent episode depressed F31.75 and Mild cognitive impairment G31.84 [facility] [address] [id number] [address] [place] [address] Sep, Mood disorder F39 [facility] [address] [id number] [address] [place] [address] Sep, [facility] [address] [id number] [address] [place] [address] Sep, Mood disorder F39 [facility] [address] [id number] [address] [place] [address] Sep, [facility] [address] [id number] [address] [place] [address] Aug, Mood disorder F39 [facility] [address] [id number] [address] [place] [address] Aug, [facility] [address] [id number] [address] [place] [address] Aug, [facility] [address] [id number] [address] [place] [address] Aug, [facility] [address] [id number] [address] [place] [address] Aug, [facility] [address] [id number] [address] [place] [address] Aug, [facility] [address] [id number] [address] [place] [address] Aug, [facility] [address] [id number] [address] [place] [address] Aug, [facility] [address] [id number] [address] [place] [address] Aug, Essential hypertension I10 [facility] [address] [id number] [address] [place] [address] Aug, Bipolar disorder, in partial remission, most recent episode depressed F31.75 and Mild cognitive impairment G31.84 [facility] [address] [id number] [address] [place] [address] Aug, Mood disorder F39 [facility] [address] [id number] [address] [place] [address] Aug, [facility] [address] [id number] [address] [place] [address] Aug, Bipolar disorder, in partial remission, most recent episode depressed F31.75 and Mild cognitive impairment G31.84 [facility] [address] [id number] [address] [place] [address] Jul, Bipolar disorder, in partial remission, most recent episode depressed F31.75 and Mild cognitive impairment G31.84 [facility] [address] [id number] [address] [place] [address] Jul, Psychophysiological insomnia F51.04 [facility] [address] [id number] [address] [place] [phone] Jul, [facility] [address] [id number] [address] [place] [address] Jul, [facility] [address] [id number] [address] [place] [address] Jul, [facility] [address] [id number] [address] [place] [address] Jul, [facility] [address] [id number] [address] [place] [address] Jul, [facility] [address] [id number] [address] [place] [address] Jul, [facility] [address] [id number] [address] [place] [address] Jul, Bipolar disorder, in partial remission, most recent episode depressed F31.75 and Mild cognitive impairment G31.84 [facility] [address] [id number] [address] [place] [address] Jul, Chronic pain G89.29 ; Diabet es E11.9 ; Essential hypertension I10 ; Ill feeling R68.89 ; Local infection of the skin and subcutaneous tissue, unspecified L08.9 and Other injury of unspecified body region, initial encounter T14.8XXA [place] [address] [id number] [address] [place] [address] Jun, Bipolar disorder, in partial remission, most recent episode depressed F31.75 and Mild cognitive impairment G31.84 [facility] [address] [id number] [address] [place] [address] Jun, [place] [address] [id number] [address] [place] [address] Jun, Bipolar disorder, in partial remission, most recent episode depressed F31.75 and Mild cognitive impairment G31.84 [place] [address] [id number] [address] [place] [address] Jun, Psychophysiological insomnia F51.04 [place] [address] [facility] [id number] [address] [place] [address] Jun, Psychophysiological insomnia F51.04 ; Chronic pain G89.29 ; Bipolar I disorder, most recent episode (or current) mixed, moderate F31.62 ; 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 ; Polyneuropathy associated with underlying disease G63 ; Type 2 diabetes mellitus with diabetic neuropathy, unspecified E11.40 ; 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 and Hyperglycemia R73.9 [place] [address] [facility] [id number] [address] [place] [address] Jun, Bipolar disorder, in partial remission, most recent episode depressed F31.75 and Mild cognitive impairment G31.84 [facility] [address] [id number] [address] [place] [address] Jun, [place] [address] [id number] [address] [place] [address] Jun, Bipolar disorder F31.9 [facility] [address] [id number] [address] [place] [address] May, Bipolar disorder, in partial remission, most recent episode depressed F31.75 and Mild cognitive impairment G31.84 [facility] [address] [id number] [address] [place] [phone] 05 May, 2019 [facility] [address] [id number] [address] [place] [address] Apr, Chronic pain G89.29 and Bipo lar disorder F31.9 [facility] [address] [id number] [address] [place] [address] Mar, Bipolar disorder F31.9 and C hronic pain G89.29 [facility] [address] [id number] [address] [place] [address] Feb, Bipolar disorder F31.9 [facility] [address] [id number] [address] [place] [address] Feb, Cellulitis of right upper ex tremity L03.113 and Skin abrasion T14.8XXA [facility] [address] [id number] [address] [place] [address] Feb, Bipolar disorder, in partial remission, most recent episode depressed F31.75 and Mild cognitive impairment G31.84 [facility] [address] [id number] [address] [place] [address] 13 Feb, 2019 Chronic pain G89.29 [facility] [address] [id number] [address] [place] [address] Feb, Bipolar disorder, in partial remission, most recent episode depressed F31.75 and Mild cognitive impairment G31.84 [facility] [address] [id number] [address] [place] [address] January, Bipolar disorder, in partial remission, most recent episode depressed F31.75 and Mild cognitive impairment G31.84 [facility] [address] [id number] [address] [place] [address] January, Chronic pain G89.29 and Bipo lar disorder F31.9 [facility] [address] [id number] [address] [place] [address] January, Bipolar disorder, in partial remission, most recent episode depressed F31.75 and Mild cognitive impairment G31.84 [facility] [address] [id number] [address] [place] [address] Dec, [facility] [address] [id number] [address] [place] [address] Dec, Chronic pain G89.29 and Bipo lar disorder F31.9 [facility] [address] [id number] [address] [place] [address] Dec, Edema of both lower extremit ies R60.0 [facility] [address] [id number] [address] [place] [address] Dec, Bipolar disorder F31.9 [facility] [address] [id number] [address] [place] [address] Dec, Bipolar disorder, in partial remission, most recent episode depressed F31.75 and Mild cognitive impairment G31.84 [facility] [address] [id number] [address] [place] [address] Nov, [facility] [address] [id number] [address] [place] [address] Nov, Chronic pain G89.29 [facility] [address] [id number] [address] [place] [address] Nov, Bipolar disorder, in partial remission, most recent episode depressed F31.75 and Mild cognitive impairment G31.84 [facility] [address] [id number] [address] [place] [address] Nov, Bipolar disorder F31.9 [facility] [address] [id number] [address] [place] [address] 04 Nov, 2018 Encounter for Medicare annua [...] unspecified morphology N40.1 and Essential hypertension I10 [address] [address] Oct, Chronic pain G89.[address] [address] Oct, Diabetes E11.[address] [address] Oct, Bipolar I disorder, most rec ent episode (or current) mixed, moderate F31.62 and Mild cognitive impairment G31.[address] [address] Oct, Bipolar I disorder, most rec ent episode (or current) mixed, moderate F31.62 and Mild cognitive impairment G31.[address] [address] Sep, Bipolar I disorder, most rec ent episode (or current) mixed, moderate F31.62 and Mild cognitive impairment G31.[address] [address] Sep, [address] [address] Sep, Diabetes E11.9 ; Hypoxia R09 .02 ; Hyperglycemia R73.9 ; Therapeutic drug monitoring Z51.81 ; BMI 50.0-59.9, adult Z68.43 and Skin cancer C44.[address] [address] Sep, Chronic pain G89.[address] [id number] Sep, Bipolar I disorder, most rec ent episode (or current) mixed, moderate F31.62 [facility] [address] [id number] [address] [place] [address] Sep, [facility] [address] [id number] [address] [place] [address] Sep, [facility] [address] [id number] [address] [place] [address] Aug, Chronic pain G89.29 [facility] [address] [id number] [address] [place] [address] Aug, Bipolar I disorder, most rec ent episode (or current) mixed, moderate F31.62 [facility] [address] [id number] [address] [place] [address] Aug, Bipolar I disorder, most rec ent episode (or current) mixed, moderate F31.62 and Mild cognitive impairment G31.84 [facility] [address] [id number] [address] [place] [address] Jul, [facility] [address] [id number] [address] [place] [address] Jul, Chronic pain G89.29 [facility] [address] [id number] [address] [place] [address] Jul, Bipolar I disorder, most rec ent episode (or current) mixed, moderate F31.62 and Mild cognitive impairment G31.84 [facility] [address] [id number] [address] [place] [address] Jul, Bipolar I disorder, most rec ent episode (or current) mixed, moderate F31.62 and MCI (mild cognitive impairment) G31.84 [facility] [address] [id number] [address] [place] [address] Jul, [facility] [address] [id number] [address] [place] [address] Jul, [facility] [address] [facility] [id number] [address] [place] [address] Jul, Bipolar I disorder, most rec ent episode (or current) mixed, moderate F31.62 [facility] [address] [facility] [id number] [address] [place] [address] Jul, Chronic pain G89.29 [facility] [address] [facility] [id number] [address] [place] [address] Jun, Bipolar I disorder, most rec ent episode (or current) mixed, moderate F31.62 [place] [address] [facility] [id number] [address] [place] [address] Jun, Pre-procedure lab exam Z01.8 12 [facility] [address] [place] [id number] [address] [place] [address] Jun, [facility] [address] [place] [id number] [place] [id number] Jun, [facility] [address] [place] [id number] [address] [place] [address] Jun, [facility] [address] [place] [id number] [address] [place] [address] Jun, Forgetfulness R68.89 ; Pre-s yncope R55 ; Localized edema R60.0 ; Other iron deficiency anemia D50.8 and BMI 50.0-59.9, adult Z68.43 [facility] [address] [facility] [id number] [address] [place] [address] Jun, Chronic pain G89.29 [facility] [address] [facility] [id number] [address] [place] [address] Jun, Chronic pain G89.29 [facility] [address] [place] [id number] [address] [place] [address] Jun, Bipolar I disorder, most rec ent episode (or current) mixed, moderate F31.62 [facility] [address] [facility] [id number] [address] [place] [address] May, Chronic pain G89.29 [facility] [address] [facility] [id number] [address] [place] [address] Apr, [place] [address] [facility] [id number] [address] [place] [address] Apr, Chronic pain G89.29 [place] [address] [place] [id number] [address] [place] [address] Apr, Primary osteoarthritis of ri ght knee M17.11 [place] [address] [facility] [id number] [address] [place] [address] Mar, [place] [address] [place] [id number] [place] [address] Mar, BMI 50.0-59.9, adult Z68.43 and Bipolar disorder, in partial remission, most recent episode depressed F31.75 [place] [address] [place] [id number] [address] [place] [address] Mar, Diabetes E11.9 ; Pure hyperc holesterolemia E78.00 ; Essential hypertension I10 ; Nausea with vomiting, unspecified R11.2 and Headache, unspecified headache type R51 [place] [address] [place] [id number] [address] [place] [address] Mar, Bipolar I disorder, most rec ent episode (or current) mixed, moderate F31.62 [place] [address] [place] [id number] [address] [place] [address] Mar, Bipolar I disorder, most rec ent episode (or current) mixed, moderate F31.62 [place] [address] [place] [id number] [address] [place] [address] Mar, Chronic pain G89.29 [place] [address] [place] [id number] [address] [place] [address] Mar, Bipolar I disorder, most rec ent episode (or current) mixed, moderate F31.62 [place] [address] [place] [id number] [address] [place] [address] 18 Feb, 2018 Bipolar I disorder, most rec ent episode (or current) mixed, moderate F31.62 [facility] [address] [facility] [id number] [address] [place] [address] 14 Feb, 2018 Chronic pain G89.29 [facility] [address] [facility] [id number] [address] [place] [address] 06 Feb, 2018 Decubitus ulcer of right josselin t, stage 3 L89.893 and BMI 50.0-59.9, adult Z68.43 [facility] [address] [id number] [address] [place] [address] Feb, Bipolar I disorder, most rec ent episode (or current) mixed, moderate F31.62 [facility] [address] [facility] [id number] [address] [place] [address] Feb, [facility] [address] [facility] [id number] [address] [place] [address] January, [facility] [address] [id number] [address] [place] [address] January, Chronic pain G89.29 [facility] [address] [facility] [id number] [address] [place] [address] January, Bipolar I disorder, most rec ent episode (or current) mixed, moderate F31.62 [facility] [address] [facility] [id number] [address] [place] [address] January, Bipolar I disorder, most rec ent episode (or current) mixed, moderate F31.62 [facility] [address] [id number] [address] [place] [address] Dec, Bipolar I disorder, most rec ent episode (or current) mixed, moderate F31.62 and BMI 50.0-59.9, adult Z68.43 [facility] [address] [id number] [address] [place] [address] Dec, Bipolar I disorder, most rec ent episode (or current) mixed, moderate F31.62 [place] [id number] [facility] [id number] [address] [place] [address] Dec, Chronic pain G89.29 [place] [address] [place] [id number] [address] [place] [address] Dec, DM neuro manif type II E11.4 9 ; Right flank pain R10.9 ; 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 ; Encounter for medication monitoring Z51.81 and BMI 50.0-59.9, adult Z68.43 [place] [address] [facility] [id number] [address] [place] [address] Dec, Bipolar I disorder, most rec ent episode (or current) mixed, moderate F31.62 [place] [address] [address] [place] [id number] [address] [place] [id number] Nov, Bipolar I disorder, most rec ent episode (or current) mixed, moderate F31.62 [place] [address] [address] [place] [id number] [address] [place] [id number] Nov, Chronic pain G89.29 [place] [address] [address] [place] [id number] [address] [place] [id number] Nov, Bipolar I disorder, most rec ent episode (or current) mixed, moderate F31.62 [place] [address] [address] [place] [id number] [address] [place] [id number] Nov, Hypokalemia E87.6 [place] [address] [place] [id number] [address] [place] [phone] Nov, Bipolar I disorder, most rec ent episode (or current) mixed, moderate F31.62 [place] [address] [place] [id number] [address] [place] [phone] Oct, Chronic pain G89.29 [place] [address] [place] [id number] [address] [place] [id number] Oct, BMI 50.0-59.9, adult Z68.43 and Bipolar I disorder, most recent episode (or current) mixed, moderate F31.62 [facility] [address] [facility] [id number] [address] [place] [address] Oct, Bipolar I disorder, most rec ent episode (or current) mixed, moderate F31.62 [facility] [address] [facility] [id number] [address] [place] [phone] Oct, [facility] [address] [facility] [id number] [address] [place] [address] Oct, Hypokalemia E87.6 [facility] [address] [facility] [id number] [place] [phone] Oct, DM neuro manif type II E11.4 9 [facility] [address] [place] [id number] [address] [place] [phone] Oct, Bipolar I disorder, most rec ent episode (or current) mixed, moderate F31.62 [facility] [address] [facility] [id number] [address] [place] [phone] Oct, Bipolar I disorder, most rec ent episode (or current) mixed, moderate F31.62 [facility] [address] [place] [id number] [address] [place] [address] 14 Oct, 2017 Hyperkalemia E87.5 ; Falling R29.6 ; BMI 50.0-59.9, adult Z68.43 and Acute left ankle pain M25.572 [facility] [address] [place] [id number] [address] [place] [phone] Oct, DM neuro manif type II E11.4 9 [facility] [address] [place] [id number] [address] [place] [address] Oct, [facility] [address] [facility] [id number] [address] [place] [address] Sep, Chronic pain G89.29 [facility] [address] [place] [id number] [address] [place] [phone] Sep, [facility] [address] [place] [id number] [address] [place] [phone] Sep, Bilateral primary osteoarthr itis of knee M17.0 [facility] [address] [facility] [id number] [address] [place] [address] 18 Sep, 2017 Generalized edema R60.1 [facility] [address] [place] [id number] [address] [place] [phone] 16 Sep, 2017 Bipolar I disorder, most rec ent episode (or current) mixed, moderate F31.62 [place] [address] [facility] [id number] [address] [place] [phone] 15 Sep, 2017 Hypoxia R09.02 ; Other hyper volemia E87.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 ; Anemia of chronic illness D63.8 and BMI 50.0- 59.9, adult Z68.43 [place] [address] [place] [id number] [address] [place] [address] Sep, [place] [address] [place] [id number] [place] [phone] Sep, Bipolar I disorder, most rec ent episode (or current) mixed, moderate F31.62 [place] [address] [place] [id number] [address] [place] [address] Aug, Chronic pain G89.29 [facility] [address] [facility] [id number] [address] [place] [phone] Aug, Generalized edema R60.1 [place] [address] [place] [id number] [address] [place] [phone] Aug, [facility] [address] [place] [id number] [address] [place] [address] Aug, [place] [address] [place] [id number] [address] [place] [phone] Aug, Bipolar I disorder, most rec ent episode (or current) mixed, moderate F31.62 [place] [address] [place] [id number] [address] [place] [address] Aug, Bipolar I disorder, most rec ent episode (or current) mixed, moderate F31.62 [place] [address] [place] [id number] [address] [place] [address] Aug, Chronic pain G89.29 [place] [address] [place] [id number] [place] [address] Jul, Bipolar I disorder, most rec ent episode (or current) mixed, moderate F31.62 [place] [address] [place] [id number] [place] [address] Jul, Bipolar I disorder, most rec ent episode (or current) mixed, moderate F31.62 and BMI 60.0-69.9, adult Z68.44 [place] [address] [address] Jul, Bipolar I disorder, most rec ent episode (or current) mixed, moderate F31.62 [place] [address] [place] [id number] [place] [address] Jul, Chronic pain G89.29 [place] [address] [place] [id number] [place] [address] Jul, Bipolar I disorder, most rec ent episode (or current) mixed, moderate F31.62 [place] [address] [place] [id number] [address] [place] [phone] Jun, Polyneuropathy associated wi th underlying disease G63 and Diabetes E11.9 [place] [address] [place] [id number] [address] [place] [address] Jun, Bipolar I disorder, most rec ent episode (or current) mixed, moderate F31.62 [place] [address] [place] [id number] [address] [place] [address] Jun, Chronic pain G89.29 [facility] [address] [id number] [address] [place] [phone] 27 May, 2017 Bipolar I disorder, most rec ent episode (or current) mixed, moderate F31.62 [facility] [address] [id number] [address] [place] [phone] 21 May, 2017 Bipolar I disorder, most rec ent episode (or current) mixed, moderate F31.62 [facility] [address] [id number] [address] [place] [phone] 20 May, 2017 Diabetic polyneuropathy asso ciated with type 2 diabetes mellitus E11.42 [facility] [address] [id number] [address] [place] [phone] 18 May, 2017 Bipolar I disorder, most rec ent episode (or current) mixed, moderate F31.62 [facility] [address] [id number] [address] [place] [phone] May, Bipolar I disorder, most rec ent episode (or current) mixed, moderate F31.62 [facility] [address] [id number] [address] [place] [address] May, Chronic pain G89.29 [facility] [address] [id number] [address] [place] [phone] Apr, Bipolar I disorder, most rec ent episode (or current) mixed, moderate F31.62 [facility] [address] [id number] [address] [place] [address] Apr, [facility] [address] [id number] [address] [place] [address] Apr, Chronic pain G89.29 and DM n euro manif type II E11.49 [facility] [address] [id number] [address] [place] [address] Apr, [facility] [address] [id number] [address] [place] [address] Apr, Bipolar I disorder, most rec ent episode (or current) mixed, moderate F31.62 [facility] [address] [id number] [address] [place] [address] Apr, Chronic pain G89.29 [facility] [address] [id number] [address] [place] [address] Apr, Iliotibial band syndrome, le ft M76.32 [facility] [address] [id number] [address] [place] [phone] Apr, Bipolar I disorder, most rec ent episode (or current) mixed, moderate F31.62 [facility] [address] [id number] [address] [place] [address] Mar, Bipolar I disorder, most rec ent episode (or current) mixed, moderate F31.62 [facility] [address] [id number] [address] [place] [phone] Mar, Bipolar I disorder, most rec ent episode (or current) mixed, moderate F31.62 [facility] [address] [id number] [address] [place] [phone] Mar, [facility] [address] [id number] [address] [place] [phone] Mar, Bipolar I disorder, most rec ent episode (or current) mixed, moderate F31.62 [facility] [address] [id number] [address] [place] [address] Mar, Chronic pain G89.29 [facility] [address] [id number] [address] [place] [phone] Mar, Bipolar I disorder, most rec ent episode (or current) mixed, moderate F31.62 [facility] [address] [id number] [address] [place] [phone] Mar, Bipolar I disorder, most rec ent episode (or current) mixed, moderate F31.62 [facility] [address] [id number] [address] [place] [address] Mar, Acute pain of left knee M25. 562 ; Left hip pain M25.552 ; Generalized edema R60.1 and Tongue swelling R22.0 [facility] [address] [id number] [address] [place] [address] Mar, [facility] [address] [id number] [address] [place] [phone] Feb, Chronic pain G89.29 [facility] [address] [id number] [address] [place] [address] Feb, Diabetes E11.9 [facility] [address] [id number] [address] [place] [phone] January, Chronic pain G89.29 [facility] [address] [id number] [address] [place] [address] January, [facility] [address] [id number] [address] [place] [address] January, Bipolar I disorder, most rec ent episode (or current) mixed, moderate F31.62 [facility] [address] [id number] [address] [place] [address] Dec, Bipolar I disorder, most rec ent episode (or current) mixed, moderate F31.62 [facility] [address] [id number] [address] [place] [address] Dec, Chronic pain G89.29 [facility] [address] [id number] [address] [place] [phone] Dec, Bipolar I disorder, most rec ent episode (or current) mixed, moderate F31.62 [facility] [address] [id number] [address] [place] [address] Dec, Diabetes E11.9 ; Essential h ypertension I10 ; Chronic pain G89.29 and Morbid obesity E66.01 [facility] [address] [id number] [address] [place] [address] Dec, [facility] [address] [id number] [address] [place] [phone] Dec, Bipolar I disorder, most rec ent episode (or current) mixed, moderate F31.62 [facility] [address] [facility] [id number] [address] [place] [phone] Dec, Bipolar I disorder, most rec ent episode (or current) mixed, moderate F31.62 [facility] [address] [id number] [address] [place] [address] Nov, Chronic pain G89.29 [facility] [address] [id number] [address] [place] [phone] Nov, Bipolar I disorder, most rec ent episode (or current) mixed, moderate F31.62 [facility] [address] [id number] [address] [place] [address] Nov, [facility] [address] [facility] [id number] [address] [place] [address] Nov, Bipolar I disorder, most rec ent episode (or current) mixed, moderate F31.62 [facility] [address] [id number] [address] [place] [phone] Nov, Bipolar I disorder, most rec ent episode (or current) mixed, moderate F31.62 [facility] [address] [facility] [id number] [address] [place] [address] Nov, [facility] [address] [id number] [address] [place] [phone] Nov, [facility] [address] [id number] [address] [place] [phone] Nov, [facility] [address] [facility] [id number] [address] [place] [phone] Oct, Chronic pain G89.29 [facility] [address] [facility] [id number] [address] [place] [address] Oct, Bipolar I disorder, most rec ent episode (or current) mixed, moderate F31.62 [facility] [address] [id number] [address] [place] [phone] Oct, [facility] [address] [facility] [id number] [address] [place] [address] Oct, Chronic pain G89.29 ; Diabet es E11.9 ; Anxiety F41.9 and 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 [facility] [address] [facility] [id number] [address] [place] [address] Oct, [facility] [address] [facility] [id number] [address] [place] [address] Oct, Diabetes E11.9 [facility] [address] [facility] [id number] [address] [place] [address] Oct, Bipolar I disorder, most rec ent episode (or current) mixed, moderate F31.62 [facility] [address] [facility] [id number] [address] [place] [phone] Sep, Chronic pain G89.29 [facility] [address] [facility] [id number] [address] [place] [address] Sep, Chronic pain G89.29 [facility] [address] [facility] [id number] [address] [place] [address] Aug, Chronic pain G89.29 [facility] [address] [facility] [id number] [address] [place] [address] Jul, [facility] [address] [facility] [id number] [address] [place] [address] Jul, Diabetes E11.9 [facility] [address] [facility] [id number] [address] [place] [address] Jul, Chronic pain G89.29 [facility] [address] [facility] [id number] [address] [place] [id number] Jul, Bipolar I disorder, most rec ent episode (or current) mixed, moderate F31.62 [facility] [address] [facility] [id number] [address] [place] [phone] Jun, Bipolar I disorder, most rec ent episode (or current) mixed, moderate F31.62 [facility] [address] [facility] [id number] [address] [place] [address] Jun, [facility] [address] [facility] [id number] [address] [place] [phone] Jun, Bipolar I disorder, most rec ent episode (or current) mixed, moderate F31.62 [facility] [address] [facility] [id number] [address] [place] [id number] May, Insomnia, unspecified type G 47.00 [facility] [address] [facility] [id number] [address] [place] [address] May, Bipolar I disorder, most rec ent episode (or current) mixed, moderate F31.62 [place] [address] [place] [id number] [address] [place] [address] May, [facility] [address] [facility] [id number] [address] [place] [address] May, Bipolar I disorder, most rec ent episode (or current) mixed, moderate F31.62 [facility] [address] [facility] [id number] [address] [place] [address] May, Diabetes E11.9 and Essential hypertension I10 [facility] [address] [facility] [id number] [address] [place] [address] Apr, Chronic pain G89.29 [facility] [address] [facility] [id number] [address] [place] [address] Apr, Bipolar I disorder, most rec ent episode (or current) mixed, moderate F31.62 [facility] [address] [facility] [id number] [address] [place] [address] Apr, [facility] [address] [facility] [id number] [address] [place] [address] Apr, [place] [address] [facility] [id number] [address] [place] [address] Mar, Chronic pain G89.29 ; Headac he, unspecified headache type R51 ; Neuropathy G62.9 ; Pain of right hip joint M25.551 and Essential hypertension I10 [facility] [address] [facility] [id number] [address] [place] [address] Mar, Chronic pain G89.29 [place] [id number] [facility] [id number] [address] [place] [address] Mar, Bipolar I disorder, most rec ent episode (or current) mixed, moderate F31.62 [place] [address] [facility] [id number] [address] [place] [address] Feb, Bipolar I disorder, most rec ent episode (or current) mixed, moderate F31.62 and Insomnia, unspecified type G47.00 [place] [address] [facility] [id number] [address] [place] [address] Feb, Chronic pain G89.29 [place] [address] [facility] [id number] [address] [place] [address] Feb, Bipolar I disorder, most rec ent episode (or current) mixed, moderate F31.62 [place] [address] [facility] [id number] [address] [place] [address] January, Bipolar I disorder, most rec ent episode (or current) mixed, moderate F31.62 [place] [address] [facility] [id number] [address] [place] [address] January, Chronic pain G89.29 [place] [address] [facility] [id number] [address] [place] [address] January, Chronic pain G89.29 and Esse ntial hypertension I10 [facility] [address] [facility] [id number] [address] [place] [address] January, Bipolar I disorder, most rec ent episode (or current) mixed, moderate F31.62 [place] [address] [place] [id number] [address] [place] [address] Dec, [facility] [address] [facility] [id number] [address] [place] [phone] Dec, [facility] [address] [facility] [id number] [address] [place] [address] Dec, [facility] [address] [facility] [id number] [address] [place] [address] Dec, [facility] [address] [facility] [id number] [address] [place] [address] Nov, Reactive airway disease J45. 909 [facility] [address] [facility] [id number] [place] [phone] Nov, [facility] [address] [place] [id number] [place] [address] Nov, [facility] [address] [address] Nov, [facility] [address] [facility] [id number] [address] [place] [address] Nov, [facility] [address] [address] Nov, Onychomycosis B35.1 ; Hammer toe M20.40 ; [place] or callus L84 and DM neuro manif type II E11.49 [facility] [address] [facility] [id number] [address] [place] [address] Nov, Chronic pain G89.29 ; Leukoc ytosis D72.829 and Diabetes E11.9 [facility] [address] [facility] [id number] [address] [place] [address] Nov, [facility] [address] [facility] [id number] [address] [place] [address] Oct, Bronchitis J40 [facility] [address] [address] Oct, [facility] [address] [address] Oct, [place] [address] [address] Oct, Mastoiditis, unspecified lat erality H70.90 and Type 2 diabetes mellitus with complication E11.8 [place] [address] [address] Sep, [place] [address] [address] Sep, Dysuria R30.0 ; Cough R05 ; Benign prostatic hyperplasia with lower urinary tract symptoms, unspecified morphology N40.1 ; Hypokalemia E87.6 and Eustachian tube dysfunction, unspecified laterality H69.80 [place] [address] [address] Sep, Moderate mixed bipolar I dis order F31.62 [place] [address] [address] Sep, Hypokalemia E87.6 [place] [address] [address] Sep, [place] [address] [address] Sep, Upper respiratory tract infe ction, unspecified type J06.9 [place] [address] [place] [id number] [address] [place] [address] Aug, [place] [address] [address] Aug, Dysuria R30.0 [place] [address] [id number] Aug, [place] [address] [address] Jul, [facility] [address] [id number] [address] [place] [address] Jul, [facility] [address] [id number] [address] [place] [address] Jul, [facility] [address] [facility] [id number] [address] [place] [address] Jul, [facility] [address] [id number] [address] [place] [address] Jun, [facility] [address] [id number] [address] [place] [id number] Jun, [facility] [address] [id number] [address] [place] [phone] Jun, [facility] [address] [facility] [id number] [address] [place] [phone] May, [facility] [address] [facility] [id number] [address] [place] [id number] May, Bipolar I disorder, most rec ent episode (or current) mixed, moderate 296.62 [facility] [address] [facility] [id number] [address] [place] [phone] May, [facility] [address] [facility] [id number] [address] [place] [id number] May, Bipolar I disorder, most rec ent episode (or current) mixed, moderate 296.62 and Major depressive disorder, recurrent episode, severe, specified as with psychotic behavior 296.34 [facility] [address] [id number] [address] [place] [phone] May, Bipolar I disorder, most rec ent episode (or current) mixed, moderate 296.62 [facility] [address] [facility] [id number] [address] [place] [phone] May, [facility] [address] [facility] [id number] [address] [place] [phone] Apr, [facility] [address] [facility] [id number] [address] [place] [phone] Apr, [facility] [address] [place] [id number] [address] [place] [phone] Apr, Unspecified disorder of kidn ey and ureter 593.9 and Diabetes mellitus type 2, uncontrolled 250.02 [facility] [address] [facility] [id number] [address] [place] [phone] Apr, [facility] [address] [facility] [id number] [address] [place] [phone] Apr, [facility] [address] [facility] [id number] [address] [place] [phone] Apr, [facility] [address] [place] [id number] [address] [place] [id number] Apr, [facility] [address] [place] [id number] [address] [place] [id number] Apr, Diabetes mellitus type II, u ncontrolled 250.02 [facility] [address] [id number] [address] [place] [address] Apr, [facility] [address] [id number] [address] [place] [address] Mar, [facility] [address] [id number] [address] [place] [address] Mar, [facility] [address] [id number] [address] [place] [address] Mar, [facility] [address] [id number] [address] [place] [address] Mar, Major depressive disorder, r ecurrent episode, severe, specified as with psychotic behavior 296.34 and Bipolar I disorder, most recent episode (or current) mixed, moderate 296.62 [facility] [address] [id number] [address] [place] [address] Mar, Diabetes 250.00 ; Anuria 788 .5 ; Nausea and vomiting 787.01 and Diarrhea 787.91 [facility] [address] [id number] [address] [place] [address] Mar, Diabetes 250.00 [facility] [address] [id number] [address] [place] [address] Mar, [facility] [address] [id number] [address] [place] [address] Mar, Diabetes 250.00 [facility] [address] [id number] [address] [place] [address] Mar, [facility] [id number] [place] [address] Mar, [facility] [address] [id number] [address] [place] [address] Mar, [facility] [address] [address] Mar, [facility] [address] [id number] [address] [place] [address] Mar, Bipolar I disorder, most rec ent episode (or current) mixed, moderate 296.62 and Major depressive disorder, recurrent episode, severe, specified as with psychotic behavior 296.34 [facility] [address] [id number] [address] [place] [address] Mar, Magnesium deficiency 275.2 ; Hypokalemia 276.8 ; Nausea & vomiting 787.01 and Diabetes mellitus type 2, uncontrolled 250.02 [facility] [address] [id number] [address] [place] [address] Feb, [facility] [address] [address] Feb, Bipolar I disorder, most rec ent episode (or current) mixed, moderate 296.62 [facility] [address] [id number] [address] [place] [address] Feb, Nausea and vomiting 787.01 ; Left elbow pain 719.42 ; Anuria 788.5 and Diabetes 250.00 [facility] [address] [id number] [address] [place] [address] Feb, [facility] [address] [facility] [id number] [address] [place] [address] Feb, Hypopotassemia 276.8 and Hyp okalemia 276.8 [facility] [address] [facility] [id number] [address] [place] [address] Feb, Hypopotassemia 276.8 and Hyp okalemia 276.8 [facility] [address] [facility] [id number] [address] [place] [address] Feb, Seborrheic keratoses 702.19 [facility] [address] [facility] [id number] [address] [place] [address] Feb, Hypopotassemia 276.8 and Low magnesium levels 275.2 [facility] [address] [facility] [id number] [address] [place] [address] January, [facility] [address] [facility] [id number] [address] [place] [address] January, [facility] [address] [id number] [address] [place] [address] January, [facility] [address] [facility] [id number] [address] [place] [address] January, Scalp lesion 709.9 [facility] [address] [facility] [id number] [address] [place] [address] January, [facility] [address] [facility] [id number] [address] [place] [address] Dec, Tear of medial cartilage or meniscus of knee, current 836.0 and 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 [facility] [address] [id number] [address] [place] [address] Dec, [facility] [address] [facility] [id number] [address] [place] [address] 29 Dec, 2014 [facility] [address] [id number] [address] [place] [address], [place] [address] 28 Dec, 2014 Squamous cell carcinoma, 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 [facility] [address] [id number] [address] [place] [address], [place] [address] 14 Dec, 2014 [facility] [address] [id number] [address] [place] [address], [place] [address] 13 Dec, 2014 [facility] [address] [id number] [address] [place] [address], [place] [address] 27 Nov, 2014 [facility] [address] [id number] [address] [place] [address], [place] [address] Nov, [facility] [address] [id number] [address] [place] [address], [place] [address] Nov, [facility] [address] [id number] [address] [place] [address], [place] [address] Nov, [facility] [address] [id number] [address] [place] [address], [place] [address] Nov, [facility] [address] [id number] [address] [place] [address], [place] [address] Nov, [facility] [address] [id number] [address] [place] [address], [place] [address] Nov, [facility] [address] [id number] [address] [place] [address], [place] [address] Nov, [facility] [address] [id number] [address] [place] [address], [place] [address] Nov, [facility] [address] [id number] [address] [place] [address], [place] [address] Nov, [facility] [address] [id number] [address] [place] [address], [place] [address] Nov, [facility] [address] [id number] [address] [place] [address], [place] [address] Nov, [facility] [address] [id number] [address] [place] [address], [place] [address] Oct, 2014 [facility] [address] [id number] [address] [place] [address], [place] [address] Oct, 2014 [facility] [address] [id number] [address] [place] [address], [place] [address] Oct, 2014 [facility] [address] [id number] [address] [place] [address], [place] [address] Oct, 2014 [facility] [address] [id number] [address] [place] [address], [place] [address] Oct, 2014 [facility] [address] [id number] [address] [place] [address], [place] [address] Oct, 2014 [facility] [address] [id number] [address] [place] [address], [place] [address] Oct, [facility] [address] [id number] [address] [place] [address], [place] [address] Oct, [facility] [address] [id number] [address] [place] [address], [place] [address] Oct, [facility] [address] [id number] [address] [place] [address], [place] [address] Sep, [facility] [address] [id number] [address] [place] [address], [place] [address] Sep, [facility] [address] [id number] [address] [place] [address], [place] [address] Sep, [facility] [address] [id number] [address] [place] [address], [place] [address] Sep, [facility] [address] [id number] [address] [place] [address], [place] [address] Sep, [facility] [address] [id number] [address] [place] [address], [place] [address] Sep, [facility] [address] [id number] [address] [place] [address], [place] [address] Sep, [facility] [address] [id number] [address] [place] [address], [place] [address] Sep, [facility] [address] [id number] [address] [place] [address], [place] [address] Sep, [facility] [address] [id number] [address] [place] [address], [place] [address] Sep, [facility] [address] [id number] [address] [place] [address], [place] [address] Sep, [facility] [address] [id number] [address] [place] [address], [place] [address] Sep, [facility] [address] [id number] [address] [place] [address], [place] [address] Sep, [facility] [address] [id number] [address] [place] [address], [place] [address] Sep, [facility] [address] [id number] [address] [place] [address], [place] [address] Sep, [facility] [address] [id number] [address] [place] [address], [place] [address] Sep, [facility] [address] [id number] [address] [place] [address], [place] [address] Aug, [facility] [address] [id number] [address] [place] [address], [place] [address] Aug, [facility] [address] [id number] [address] [place] [address], [place] [address] Aug, [facility] [address] [id number] [address] [place] [address], [place] [address] Aug, [facility] [address] [id number] [address] [place] [address], [place] [address] Aug, [facility] [address] [id number] [address] [place] [address], [place] [address] Aug, [facility] [address] [id number] [facility] [place] [address] Aug, [facility] [address] [id number] [facility] [place] [address] Aug, [facility] [address] [id number] [facility] [place] [address] Aug, [facility] [address] [id number] [address] [place] [address], [place] [address] Aug, [facility] [address] [id number] [facility] [place] [address] Aug, [facility] [id number] Aug, [facility] [address] [id number] [facility] [place] [address] Aug, [facility] [address] [id number] [address] [place] [address], [place] [address] Aug, [facility] [address] [id number] [address] [place] [address], [place] [address] Aug, [facility] [address] [id number] [address] [place] [address], [place] [address] Aug, [facility] [address] [id number] [address] [place] [address], [place] [address] Aug, [facility] [address] [id number] [address] [place] [address], [place] [address] Aug, [facility] [address] [id number] [address] [place] [address], [place] [address] Aug, [facility] [address] [id number] [address] [place] [address], [place] [address] Aug, [facility] [address] [id number] [facility] [place] [address] Aug, [facility] [address] [id number] [address] [place] [address], [place] [address] Aug, [facility] [address] [id number] [facility] [place] [address] Aug, [facility] [address] [id number] [address] [place] [address], [place] [address] Aug, [facility] [address] [id number] [address] [place] [address], [place] [address] Aug, [facility] [address] [id number] [address] [place] [address], [place] [address] Aug, [facility] [address] [id number] [address] [place] [address], [place] [address] Aug, [facility] [address] [id number] [address] [place] [address], [place] [address] Aug, [facility] [address] [id number] [address] [place] [address], [place] [address] Aug, [facility] [address] [id number] [address] [place] [address], [place] [address] Aug, [facility] [address] [id number] [address] [place] [address], [place] [address] Jul, [facility] [address] [id number] [address] [place] [address], [place] [address] Jul, [facility] [address] [id number] [address] [place] [address], [place] [address] Jul, [facility] [address] [id number] [address] [place] [address], [place] [address] Jul, [facility] [address] [id number] [address] [place] [address], [place] [address] Jul, [facility] [address] [id number] [address] [place] [address], [place] [address] Jul, [facility] [address] [id number] [address] [place] [address], [place] [address] Jul, [facility] [address] [id number] [address] [place] [address], [place] [address] Jul, [facility] [address] [id number] [address] [place] [address], [place] [address] Jul, [facility] [address] [id number] [address] [place] [address], [place] [address] Jul, [facility] [address] [id number] [address] [place] [address], [place] [address] Jun, [facility] [address] [id number] [address] [place] [address], [place] [address] Jun, [facility] [address] [id number] [address] [place] [address], [place] [address] Jun, [facility] [address] [id number] [address] [place] [address], [place] [address] Jun, [facility] [address] [id number] [address] [place] [address], [place] [address] Jun, [facility] [address] [id number] [address] [place] [address], [place] [address] Jun, [facility] [address] [id number] [address] [place] [address], [place] [address] Jun, [facility] [address] [id number] [address] [place] [address], [place] [address] Jun, [facility] [address] [id number] [address] [place] [address], [place] [address] Jun, [facility] [address] [id number] [address] [place] [address], [place] [address] Jun, [facility] [address] [id number] [address] [place] [address], [place] [address] May, [facility] [address] [id number] [address] [place] [address], [place] [address] 29 May, 2014 [facility] [address] [id number] [address] [place] [address], [place] [address] May, [facility] [address] [id number] [facility] [place] [address] 26 Sep, 2013 [facility] [address] [id number] [facility] [place] [address] 17 May, 2013 [facility] [address] [id number] [facility] [place] [address] 17 May, 2013 [facility] [address] [id number] [address] [place] [address], [place] [address] 15 May, 2013 [facility] [address] [id number] [address] [place] [address], [place] [address] 15 May, 2013 [facility] [address] [id number] [address] [place] [address], [place] [address] 15 May, 2013 [facility] [address] [id number] [address] [place] [address], [place] [address] 15 May, 2013 [facility] [address] [id number] [address] [place] [address], [place] [address] 10 May, 2013 [facility] [address] [id number] [address] [place] [address], [place] [address] 10 May, 2013 [facility] [address] [id number] [address] [place] [address], [place] [address] 09 May, 2013 [facility] [address] [id number] [address] [place] [address], [place] [address] 09 May, 2013 [facility] [address] [id number] [address] [place] [address], [place] [address] 04 May, 2013 [facility] [address] [id number] [address] [place] [address], [place] [address] May, 2013 [facility] [address] [id number] [address] [place] [address], [place] [address] Apr, [facility] [address] [id number] [address] [place] [address], [place] [address] Apr, [facility] [address] [id number] [address] [place] [address], [place] [address] Apr, [facility] [address] [id number] [facility] [place] [address] Apr, [facility] [address] [id number] [address] [place] [address], [place] [address] Apr, [facility] [address] [id number] [address] [place] [address], [place] [address] Apr, [facility] [address] [id number] [address] [place] [address], [place] [address] Apr, [facility] [address] [id number] [address] [place] [address], [place] [address] Apr, [facility] [address] [id number] [address] [place] [address], [place] [address] Apr, [facility] [address] [id number] [address] [place] [address], [place] [address] Apr, [facility] [address] [id number] [address] [place] [address], [place] [address] Apr, [facility] [address] [id number] [address] [place] [address], [place] [address] Apr, [facility] [address] [id number] [address] [place] [address], [place] [address] Apr, [facility] [address] [id number] [address] [place] [address], [place] [address] Apr, [facility] [address] [id number] [address] [place] [address], [place] [address] Apr, [facility] [address] [id number] [address] [place] [address], [place] [address] Mar, [facility] [address] [id number] [address] [place] [address], [place] [address] Mar, [facility] [address] [id number] [address] [place] [address], [place] [address] Mar, [facility] [address] [id number] [facility] [place] [address] Mar, 2013 [facility] [address] [id number] [address] [place] [address], [place] [address] Mar, 2013 [facility] [address] [id number] [address] [place] [address], [place] [address] Mar, 2013 [facility] [address] [id number] [address] [place] [address], [place] [address] Mar, 2013 [facility] [address] [id number] [address] [place] [address], [place] [address] Mar, 2013 [facility] [address] [id number] [address] [place] [address], [place] [address] Mar, 2013 [facility] [address] [id number] [address] [place] [address], [place] [address] Mar, 2013 [facility] [address] [id number] [address] [place] [address], [place] [address] Mar, 2013 [facility] [address] [id number] [address] [place] [address], [place] [address] Mar, 2013 [facility] [address] [id number] [address] [place] [address], [place] [address] Mar, 2013 [facility] [address] [id number] [address] [place] [address], [place] [address] Mar, 2013 [facility] [address] [id number] [address] [place] [address], [place] [address] Mar, 2013 [facility] [address] [id number] [address] [place] [address], [place] [address] Mar, 2013 [facility] [address] [id number] [address] [place] [address], [place] [address] Mar, 2013 [facility] [address] [id number] [address] [place] [address], [place] [address] Mar, 2013 [facility] [address] [id number] [address] [place] [address], [place] [address] Feb, [facility] [address] [id number] [facility] [place] [address] Feb, [facility] [address] [id number] [address] [place] [address], [place] [address] Feb, [facility] [address] [id number] [facility] [place] [address] Feb, [facility] [address] [id number] [address] [place] [address], [place] [address] Feb, [facility] [address] [id number] [address] [place] [address], [place] [address] Feb, [facility] [address] [id number] [address] [place] [address], [place] [address] Feb, [facility] [address] [id number] [address] [place] [address], [place] [address] Feb, [facility] [address] [id number] [address] [place] [address], [place] [address] Feb, [facility] [address] [id number] [address] [place] [address], [place] [address] Feb, [facility] [address] [id number] [address] [place] [address], [place] [address] Feb, [facility] [address] [id number] [address] [place] [address], [place] [address] Feb, [facility] [address] [id number] [address] [place] [address], [place] [address] Feb, [facility] [address] [id number] [address] [place] [address], [place] [address] Feb, [facility] [address] [id number] [address] [place] [address], [place] [address] January, [facility] [address] [id number] [address] [place] [address], [place] [address] January, [facility] [address] [id number] [address] [place] [address], [place] [address] January, [facility] [address] [id number] [address] [place] [address], [place] [address] January, [facility] [address] [id number] [address] [place] [address], [place] [address] January, [facility] [address] [id number] [address] [place] [address], [place] [address] January, [facility] [address] [id number] [address] [place] [address], [place] [address] January, [facility] [address] [id number] [address] [place] [address], [place] [address] January, [facility] [address] [id number] [address] [place] [address], [place] [address] January, [facility] [address] [id number] [address] [place] [address], [place] [address] January, [facility] [address] [id number] [address] [place] [address], [place] [address] January, [facility] [address] [id number] [address] [place] [address], [place] [address] January, [facility] [address] [id number] [address] [place] [address], [place] [address] January, [facility] [address] [id number] [address] [place] [address], [place] [address] January, [facility] [address] [id number] [address] [place] [address], [place] [address] Dec, [facility] [address] [id number] [address] [place] [address], [place] [address] Dec, [facility] [address] [id number] [address] [place] [address], [place] [address] Dec, [facility] [address] [id number] [address] [place] [address], [place] [address] Dec, [facility] [address] [id number] [facility] [place] [address] Dec, [facility] [address] [id number] [facility] [place] [address] Dec, [facility] [address] [id number] [facility] [place] [address] Dec, [facility] [address] [id number] [facility] [place] [address] Dec, [facility] [address] [id number] [facility] [place] [address] Dec, [facility] [address] [id number] [facility] [place] [address] Dec, [facility] [address] [id number] [facility] [place] [address] Nov, [facility] [address] [id number] [address] [place] [address], [place] [address] Nov, [facility] [address] [id number] [address] [place] [address], [place] [address] Nov, [facility] [address] [id number] [address] [place] [address], [place] [address] Nov, [facility] [address] [id number] [address] [place] [address], [place] [address] Nov, [facility] [address] [id number] [address] [place] [address], [place] [address] Nov, [facility] [address] [id number] [address] [place] [address], [place] [address] 05 Nov, 2013 [facility] [address] [id number] [address] [place] [address], [place] [address] 05 Nov, 2013 [facility] [address] [id number] [facility] [place] [address] Nov, [facility] [address] [id number] [address] [place] [address], [place] [address] Nov, [facility] [address] [id number] [facility] [place] [address] Oct, [facility] [address] [id number] [address] [place] [address], [place] [address] Oct, [facility] [address] [id number] [address] [place] [address], [place] [address] Oct, [facility] [address] [id number] [address] [place] [address], [place] [address] Oct, [facility] [address] [id number] [address] [place] [address], [place] [address] Oct, [facility] [address] [id number] [address] [place] [address], [place] [address] Oct, [facility] [address] [id number] [address] [place] [address], [place] [address] Oct, [facility] [address] [id number] [address] [place] [address], [place] [address] Oct, [facility] [address] [id number] [address] [place] [address], [place] [address] Oct, [facility] [address] [id number] [address] [place] [address], [place] [address] Oct, [facility] [address] [id number] [address] [place] [address], [place] [address] Oct, [facility] [address] [id number] [address] [place] [address], [place] [address] Oct, [facility] [address] [id number] [address] [place] [address], [place] [address] Oct, [facility] [address] [id number] [address] [place] [address], [place] [address] Oct, [facility] [address] [id number] [address] [place] [address], [place] [address] Sep, [facility] [address] [id number] [address] [place] [address], [place] [address] Sep, [facility] [address] [id number] [address] [place] [address], [place] [address] Sep, [facility] [address] [id number] [address] [place] [address], [place] [address] 15 Sep, 2013 [facility] [address] [id number] [address] [place] [address], [place] [address] Sep, [facility] [address] [id number] [address] [place] [address], [place] [address] Sep, [facility] [address] [id number] [address] [place] [address], [place] [address] Sep, [facility] [address] [id number] [address] [place] [address], [place] [address] Sep, [facility] [address] [id number] [address] [place] [address], [place] [address] Sep, [facility] [address] [id number] [address] [place] [address], [place] [address] Sep, [facility] [address] [id number] [address] [place] [address], [place] [address] Aug, [facility] [address] [id number] [address] [place] [address], [place] [address] Aug, [facility] [address] [id number] [address] [place] [address], [place] [address] Jul, [facility] [address] [id number] [address] [place] [address], [place] [address] Jul, [facility] [address] [id number] [address] [place] [address], [place] [address] Jul, [facility] [address] [id number] [address] [place] [address], [place] [address] Jul, [facility] [address] [id number] [address] [place] [address] Jul, [facility] [address] [id number] [address] [place] [address], [place] [address] Jul, [facility] [address] [id number] [address] [place] [address] Jul, [facility] [address] [id number] [address] [place] [address], [place] [address] Jul, [facility] [address] [id number] [address] [place] [address] Jul, [facility] [address] [id number] [address] [place] [address], [place] [address] Jul, [facility] [address] [id number] [address] [place] [address], [place] [address] Jul, [facility] [address] [id number] [address] [place] [address], [place] [address] Jul, [facility] [address] [id number] [address] [place] [address], [place] [address] Jul, [facility] [address] [id number] [address] [place] [address] Jul, [facility] [address] [id number] [address] [place] [address], [place] [address] Jul, [facility] [address] [id number] [address] [place] [address] Jul, [facility] [address] [id number] [address] [place] [address] Jul, [facility] [address] [id number] [address] [place] [address] Jul, [facility] [address] [id number] [address] [place] [address], [place] [address] Jul, [facility] [address] [id number] [address] [place] [address], [place] [address] Jun, [facility] [address] [id number] [address] [place] [address], [place] [address] 16 Jun, 2012 [facility] [address] [id number] [address] [place] [address], [place] [address] 16 Jun, 2012 [facility] [address] [id number] [address] [place] [address], [place] [address] 16 Jun, 2012 [facility] [address] [id number] [address] [place] [address], [place] [address] 16 Jun, 2012 [facility] [address] [id number] [address] [place] [address], [place] [address] 16 Jun, 2012 [facility] [address] [id number] [address] [place] [address], [place] [address] 10 Jun, 2012 [facility] [address] [id number] [address] [place] [address], [place] [address] 10 Jun, 2012 [facility] [address] [id number] [address] [place] [address], [place] [address] 09 Jun, 2012 [facility] [address] [id number] [address] [place] [address], [place] [address] 09 Jun, 2012 [facility] [address] [id number] [address] [place] [address], [place] [address] 01 Jun, 2012 [facility] [address] [id number] [address] [place] [address], [place] [address] 26 Sep, 2012 [facility] [address] [id number] [address] [place] [address], [place] [address] 25 Sep, 2012 [facility] [address] [id number] [address] [place] [address], [place] [address] 19 Sep, 2012 [facility] [address] [id number] [address] [place] [address], [place] [address] 17 Sep, 2012 [facility] [address] [id number] [address] [place] [address], [place] [address] 11 Sep, 2012 [facility] [address] [id number] [address] [place] [address], [place] [address] May, [facility] [address] [id number] [address] [place] [address], [place] [address] May, [facility] [address] [id number] [address] [place] [address], [place] [address] May, [facility] [address] [id number] [address] [place] [address], [place] [address] Apr, [facility] [address] [id number] [address] [place] [address], [place] [address] Apr, [facility] [address] [id number] [address] [place] [address], [place] [address] Apr, [facility] [address] [id number] [address] [place] [address], [place] [address] Apr, [facility] [address] [id number] [address] [place] [address], [place] [address] Apr, [facility] [address] [id number] [address] [place] [address], [place] [address] Mar, [facility] [address] [id number] [address] [place] [address], [place] [address] Mar, [facility] [address] [id number] [address] [place] [address], [place] [address] Mar, [facility] [address] [id number] [address] [place] [address], [place] [address] Mar, [facility] [address] [id number] [address] [place] [address], [place] [address] Mar, [facility] [address] [id number] [address] [place] [address], [place] [address] Mar, [facility] [address] [id number] [address] [place] [address], [place] [address] Mar, [facility] [address] [id number] [address] [place] [address], [place] [address] Mar, [facility] [address] [id number] [address] [place] [address], [place] [address] Feb, [facility] [address] [id number] [address] [place] [address], [place] [address] Feb, [facility] [address] [id number] [address] [place] [address], [place] [address] January, [facility] [address] [id number] [address] [place] [address], [place] [address] January, [facility] [address] [id number] [address] [place] [address], [place] [address] Dec, [facility] [address] [id number] [address] [place] [address], [place] [address] Dec, [facility] [address] [id number] [address] [place] [address], [place] [address] Nov, [facility] [address] [id number] [address] [place] [address], [place] [address] Nov, [facility] [address] [id number] [address] [place] [address], [place] [address] Nov, [facility] [address] [id number] [address] [place] [address], [place] [address] Nov, [facility] [address] [id number] [address] [place] [address], [place] [address] Oct, [facility] [address] [id number] [address] [place] [address], [place] [address] Oct, [facility] [address] [id number] [address] [place] [address], [place] [address] Oct, [facility] [address] [id number] [address] [place] [address], [place] [address] Oct, [facility] [address] [id number] [address] [place] [address], [place] [address] 16 Oct, 2012 [facility] [address] [id number] [address] [place] [address], [place] [address] 14 Oct, 2012 [facility] [address] [id number] [address] [place] [address], [place] [address] 08 Oct, 2012 [facility] [address] [id number] [address] [place] [address], [place] [address] 07 Oct, 2012 [facility] [address] [id number] [address] [place] [address], [place] [address] 03 Oct, 2012 [facility] [address] [id number] [address] [place] [address], [place] [address] 30 Sep, 2012 [facility] [address] [id number] [address] [place] [address], [place] [address] Sep, [facility] [address] [id number] [address] [place] [address], [place] [address] Sep, [facility] [address] [id number] [address] [place] [address], [place] [address] Sep, [facility] [address] [id number] [address] [place] [address], [place] [address] Sep, [facility] [address] [id number] [address] [place] [address], [place] [address] Sep, [facility] [address] [id number] [address] [place] [address], [place] [address] Sep, [facility] [address] [id number] [address] [place] [address], [place] [address] Sep, [facility] [address] [id number] [address] [place] [address], [place] [address] Aug, [facility] [address] [id number] [address] [place] [address], [place] [address] Aug, [facility] [address] [id number] [address] [place] [address], [place] [address] Aug, [facility] [address] [id number] [address] [place] [address], [place] [address] Aug, [facility] [address] [id number] [address] [place] [address], [place] [address] Aug, [facility] [address] [id number] [address] [place] [address], [place] [address] Aug, [facility] [address] [id number] [address] [place] [address], [place] [address] Aug, [facility] [address] [id number] [address] [place] [address], [place] [address] Aug, [facility] [address] [id number] [address] [place] [address], [place] [address] Jul, [facility] [address] [id number] [address] [place] [address], [place] [address] Jul, [facility] [address] [id number] [address] [place] [address], [place] [address] Jul, [facility] [address] [id number] [address] [place] [address], [place] [address] Jul, [facility] [address] [id number] [address] [place] [address], [place] [address] Jul, [facility] [address] [id number] [address] [place] [address], [place] [address] Jul, [facility] [address] [id number] [address] [place] [address], [place] [address] Jun, [facility] [address] [id number] [address] [place] [address], [place] [address] Jun, [facility] [address] [id number] [address] [place] [address], [place] [address] Jun, [facility] [address] [id number] [address] [place] [address], [place] [address] Jun, [facility] [address] [id number] [address] [place] [address], [place] [address] Jun, [facility] [address] [id number] [address] [place] [address], [place] [address] Jun, [facility] [address] [id number] [address] [place] [address], [place] [address] Jun, [facility] [address] [id number] [address] [place] [address], [place] [address] Jun, [facility] [address] [id number] [address] [place] [address], [place] [address] Jun, [facility] [address] [id number] [address] [place] [address], [place] [address] May, [facility] [address] [id number] [address] [place] [address], [place] [address] 24 May, 2012 [facility] [address] [id number] [address] [place] [address], [place] [address] May, [facility] [address] [id number] [address] [place] [address], [place] [address] Apr, [facility] [address] [id number] [address] [place] [address], [place] [address] Apr, [facility] [address] [id number] [address] [place] [address], [place] [address] Apr, [facility] [address] [id number] [address] [place] [address], [place] [address] Apr, [facility] [address] [id number] [address] [place] [address], [place] [address] Apr, [facility] [address] [id number] [address] [place] [address], [place] [address] Apr, [facility] [address] [id number] [address] [place] [address], [place] [address] Mar, [facility] [address] [id number] [address] [place] [address], [place] [address] Mar, [facility] [address] [id number] [address] [place] [address], [place] [address] Mar, [facility] [address] [id number] [address] [place] [address], [place] [address] Mar, [facility] [address] [id number] [address] [place] [address], [place] [address] Feb, [facility] [address] [id number] [address] [place] [address], [place] [address] Feb, [facility] [address] [id number] [address] [place] [address], [place] [address] Feb, [facility] [address] [id number] [address] [place] [address], [place] [address] Feb, [facility] [address] [id number] [address] [place] [address], [place] [address] Feb, [facility] [address] [id number] [address] [place] [address], [place] [address] January, [facility] [address] [id number] [address] [place] [address], [place] [address] January, [facility] [address] [id number] [address] [place] [address], [place] [address] January, [facility] [address] [id number] [address] [place] [address], [place] [address] January, [facility] [address] [id number] [address] [place] [address], [place] [address] January, [facility] [address] [id number] [address] [place] [address], [place] [address] January, [facility] [address] [id number] [address] [place] [address], [place] [address] Dec, [facility] [address] [id number] [address] [place] [address], [place] [address] Dec, [facility] [address] [id number] [address] [place] [address], [place] [address] Dec, [facility] [address] [id number] [address] [place] [address], [place] [address] Dec, [facility] [address] [id number] [address] [place] [address], [place] [address] 06 Dec, 2011 [facility] [address] [id number] [address] [place] [address], [place] [address] 27 Nov, 2011 [facility] [address] [id number] [address] [place] [address], [place] [address] 14 Nov, 2011 [facility] [address] [id number] [address] [place] [address], [place] [address] 12 Nov, 2011 [facility] [address] [id number] [address] [place] [address], [place] [address] 07 Nov, 2011 [facility] [address] [id number] [address] [place] [address], [place] [address] 29 Oct, 2011 [facility] [address] [id number] [address] [place] [address], [place] [address] 28 Oct, 2011 [facility] [address] [id number] [address] [place] [address], [place] [address] 24 Oct, 2011 [facility] [address] [id number] [address] [place] [address], [place] [address] 13 Oct, 2011 [facility] [address] [id number] [address] [place] [address], [place] [id number] 08 Oct, 2011 [facility] [address] [id number] [address] [place] [address], [place] [address] Sep, [facility] [address] [id number] [address] [place] [address], [place] [address] 30 Sep, 2011 [facility] [address] [id number] [address] [place] [address], [place] [address] Sep, [facility] [address] [id number] [address] [place] [address], [place] [address] Sep, [facility] [address] [id number] [address] [place] [address], [place] [address] Sep, [facility] [address] [id number] [address] [place] [address], [place] [address] Sep, [facility] [address] [id number] [address] [place] [address], [place] [address] Aug, [facility] [address] [id number] [address] [place] [address], [place] [address] Aug, [facility] [address] [id number] [address] [place] [address], [place] [address] Aug, [facility] [address] [id number] [address] [place] [address], [place] [address] Jul, [facility] [address] [id number] [address] [place] [address], [place] [address] Jul, [facility] [address] [id number] [address] [place] [address], [place] [address] Jul, [facility] [address] [id number] [address] [place] [address], [place] [address] Jul, [facility] [address] [id number] [address] [place] [address], [place] [address] Jun, [facility] [address] [id number] [address] [place] [address], [place] [address] Jun, [facility] [address] [id number] [address] [place] [id number] Jun, [facility] [address] [id number] [address] [place] [id number] Jun, [facility] [address] [id number] [address] [place] [phone] Jun, [facility] [address] [id number] [address] [place] [address], [place] [address] Jun, [facility] [address] [id number] [address] [place] [id number] Mar, [facility] [address] [id number] [address] [place] [address], [place] [address] Dec, [facility] [address] [id number] [address] [place] [address], [place] [address] 11 Dec, 2010 [facility] [address] [id number] [address] [place] [address], [place] [address] 18 Nov, 2010 [facility] [address] [id number] [address] [place] [address], [place] [address] 16 Nov, 2010 [facility] [address] [id number] [address] [place] [address], [place] [address] 10 Sep, 2010 [facility] [address] [id number] [address] [place] [address], [place] [address] 31 Aug, 2010 [facility] [address] [id number] [address] [place] [address], [place] [address] 29 Aug, 2010 [facility] [address] [id number] [address] [place] [address], [place] [address] 29 Aug, 2010 [facility] [address] [id number] [address] [place] [address], [place] [address] 29 Aug, 2010 [facility] [address] [id number] [address] [place] [address], [place] [address] 27 Aug, 2010 [facility] [address] [id number] [address] [place] [address], [place] [address] 14 Aug, 2010 [facility] [address] [id number] [address] [place] [address], [place] [address] 08 Aug, 2010 [facility] [address] [id number] [address] [place] [address], [place] [address] 08 Aug, 2010 [facility] [address] [id number] [address] [place] [address], [place] [address] 07 Aug, 2010 [facility] [address] [id number] [address] [place] [address], [place] [address] 06 Aug, 2010 [facility] [address] [id number] [address] [place] [address], [place] [address] 06 Aug, 2010 [facility] [address] [id number] [address] [place] [address], [place] [address] Aug, [facility] [address] [id number] [address] [place] [address], [place] [address] 30 Jul, 2010 [facility] [address] [id number] [address] [place] [address], [place] [address] Jul, [facility] [address] [id number] [address] [place] [address], [place] [address] Jul, [facility] [address] [id number] [address] [place] [address], [place] [address] Jul, [facility] [address] [id number] [address] [place] [address], [place] [address] Jul, [facility] [address] [id number] [address] [place] [address], [place] [address] Jul, [facility] [address] [id number] [address] [place] [address], [place] [address] 24 Jun, 2010 [facility] [address] [id number] [address] [place] [address], [place] [address] Jun, [facility] [address] [id number] [address] [place] [address], [place] [address] Jun, [facility] [address] [id number] [address] [place] [address], [place] [address] Jun, [facility] [address] [id number] [address] [place] [address], [place] [address] Apr, [facility] [address] [id number] [address] [place] [address], [place] [address] Mar, [facility] [address] [id number] [address] [place] [address], [place] [address] Feb, [facility] [address] [id number] [address] [place] [address], [place] [address] January, [facility] [address] [id number] [address] [place] [address], [place] [address] 15 Dec, 2009 [facility] [address] [id number] [place] [address] Nov, [facility] [address] [id number] [address] [place] [id number] 31 Aug, 2009 [facility] [address] [id number] [address] [place] [address] Aug, [facility] [address] [id number] [address] [place] [address] Aug, [facility] [address] [id number] [address] [place] [id number] Jul, [facility] [address] [id number] [address] [place] [id number] Jul, [facility] [address] [id number] [address] [place] [id number] Jul, [facility] [address] [id number] [address] [place] [id number] 30 Jun, 2009 [facility] [address] [id number] [address] [place] [id number] Jun, [facility] [address] [id number] [address] [place] [id number] Jun, [facility] [address] [id number] [address] [place] [id number] Jun, [facility] [address] [id number] [address] [place] [id number] Jun, [facility] [address] [id number] [address] [place] [id number] Jun, [facility] [address] [id number] [address] [place] [id number] Apr, [facility] [address] [id number] [address] [place] [address] Apr, [facility] [address] [id number] [address] [place] [phone] Feb, [facility] [address] [id number] [address] [place] [phone] January, [facility] [address] [facility] [id number] [address] [place] [id number] Dec, IMMUNIZATIONS No Known Immunizations SOCIAL HISTORY [...] Medical History skin cancer-basal cell R protestant (removed ) Medical History Arthritis Medical History [...] 2009 Surgical History colonoscopy 2009 ([facility]), 2013 ([facility] ) Surgical History heart cath: CAD w/ [...] History inability to urinate 09/16/15 Hospitalization History [facility] e[facility] rly 1999' Hospitalization History hyperkalemia 10/2017 Hospitalization History fluid in lung
--- OUTSIDE RECORDS SUMMARY | 2020-03-01 16:38 | XMS REPORT ---
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 Name Role Phone ROSELINE LUIS Unavailable PROBLEMS Type Condition ICD9-CM Code [id number] Code Onset Dates Condition S tatus SNOMED Code Problem Chronic pain G89.29 Active 0049881 1 Problem Reactive airway disease J45.909 Active 688200938328 Problem Leukocytosis D72.829 Active 9800792 06 Problem Insomnia, unspecified type G47.00 Act sharon 910563729 Problem Bipolar I disorder, most recent episode (or curr ent) mixed, moderate F31.62 Active 13041600 Problem Morbid obesity E66.01 Active 01713 6002 Problem Anxiety F41.9 Active 06017710 Problem Mild cognitive impairment G31.84 Acti ve 035341059 Problem Benign prostatic hyperplasia with lower urinary tract symptoms, unspecified morphology N40.1 Active 37587 6007 Problem Other iron deficiency anemia D50.8 A ctive 80035106 Problem Eustachian tube dysfunction, unspecified laterality H69.80 Active 66542767 Problem Diabetes E11.9 Active 65843534 Problem DM neuro manif type II E11.49 Active 05259348 Problem Anemia of chronic illness D63.8 Acti ve 318607582 Problem Bilateral primary osteoarthritis of knee M17.0 Active 210554361 Problem 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 Active 255209938 Problem Eye exam abnormal R93.8 Active 16 6190289 Problem Retinal edema H35.81 Active 197084 6 Problem Lymphocytosis D72.820 Active 765473 09 Problem Bipolar disorder, in partial remission, most rec ent episode depressed F31.75 Active 66358014 Problem Hypokalemia E87.6 Active 93709951 Problem Falling R29.6 Active 875648650 Problem Pressure ulcer of other site, stage 3 L89.893 Active 198235517 Problem Primary osteoarthritis of right knee M17.11 Active 946614707917298 Problem Cough R05 Active 17926362 Problem Pure hypercholesterolemia E78.00 Acti ve 578106193 Problem Dysuria R30.0 Active 18702150 Problem Skin cancer C44.90 Active 74828486 7 Problem Bipolar disorder F31.9 Active 137 97708 Problem Chronic diastolic (congestive) heart failure I50.3 2 Active 105533021 Problem Bipolar I disorder, most recent episode depressed, moderat e F31.32 Active 998038023 Problem Diabetic polyneuropathy associated with type 2 d iabetes mellitus E11.42 Active 54650995 Problem Gastroesophageal reflux disease without esophagitis K21.9 Active 028434256 Problem Essential hypertension I10 Active 96656488 Problem Polyneuropathy associated with underlying disease G63 Active 629007558 Problem Psychophysiological insomnia F51.04 A ctive 419644699 Problem Type 2 diabetes mellitus with diabetic neuropathy, uns pecified E11.40 Active 91159012 Problem Chronic lymphocytic leukemia C91.10 A ctive 41607809 Problem 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 Active 066267362 Problem Mood disorder F39 Active 783392 05 ALLERGIES No Information ENCOUNTERS Encounter Location Date Diagnosis [place] [id number] [facility] [id number] [address] [place] [phone] Dec, [place] [address] [facility] [id number] [address] [place] [address] Dec, [facility] [address] [facility] [id number] [address] [place] [address] Nov, Gastroesophageal reflux dise ase without esophagitis K21.9 [facility] [address] [facility] [id number] [address] [place] [phone] Nov, Chronic pain G89.29 [facility] [address] [facility] [id number] [address] [place] [address] Nov, Bipolar I disorder, most rec ent episode depressed, moderate F31.32 ; Anxiety F41.9 and Mild cognitive impairment G31.84 [facility] [address] [facility] [id number] [address] [place] [address] Nov, [facility] [address] [id number] [address] [place] [address] Nov, Syncope, unspecified syncope type R55 [facility] [address] [id number] [address] [place] [address] Nov, Mood disorder F39 [facility] [address] [id number] [address] [place] [address] Oct, Chronic pain G89.29 [facility] [address] [id number] [address] [place] [id number] Oct, [facility] [address] [id number] [address] [place] [address] Oct, Mood disorder F39 [facility] [address] [id number] [address] [place] [address] Oct, [facility] [address] [id number] [address] [place] [address] Oct, Bipolar disorder, in partial remission, most recent episode depressed F31.75 and Mild cognitive impairment G31.84 [facility] [address] [id number] [address] [place] [address] Oct, Mood disorder F39 [facility] [address] [id number] [address] [place] [address] Sep, [facility] [address] [id number] [address] [place] [address] Sep, Mood disorder F39 [facility] [address] [id number] [address] [place] [address] Sep, Bipolar disorder, in partial remission, most recent episode depressed F31.75 and Mild cognitive impairment G31.84 [facility] [address] [id number] [address] [place] [address] Sep, Mood disorder F39 [facility] [address] [id number] [address] [place] [address] Sep, [facility] [address] [id number] [address] [place] [address] Sep, Mood disorder F39 [facility] [address] [id number] [address] [place] [address] Sep, [facility] [address] [id number] [address] [place] [address] Aug, Mood disorder F39 [facility] [address] [id number] [address] [place] [address] Aug, [facility] [address] [id number] [address] [place] [address] Aug, [facility] [address] [id number] [address] [place] [address] Aug, [facility] [address] [id number] [address] [place] [address] Aug, [facility] [address] [id number] [address] [place] [address] Aug, [facility] [address] [id number] [address] [place] [address] Aug, [facility] [address] [id number] [address] [place] [address] Aug, [facility] [address] [id number] [address] [place] [address] Aug, Essential hypertension I10 [facility] [address] [id number] [address] [place] [address] Aug, Bipolar disorder, in partial remission, most recent episode depressed F31.75 and Mild cognitive impairment G31.84 [facility] [address] [id number] [address] [place] [address] Aug, Mood disorder F39 [facility] [address] [id number] [address] [place] [address] Aug, [facility] [address] [id number] [address] [place] [address] Aug, Bipolar disorder, in partial remission, most recent episode depressed F31.75 and Mild cognitive impairment G31.84 [facility] [address] [id number] [address] [place] [address] Jul, Bipolar disorder, in partial remission, most recent episode depressed F31.75 and Mild cognitive impairment G31.84 [facility] [address] [id number] [address] [place] [address] Jul, Psychophysiological insomnia F51.04 [facility] [address] [id number] [address] [place] [address] Jul, [facility] [address] [id number] [address] [place] [address] Jul, [facility] [address] [id number] [address] [place] [address] Jul, [facility] [address] [id number] [address] [place] [address] Jul, [facility] [address] [id number] [address] [place] [address] Jul, [facility] [address] [id number] [address] [place] [address] Jul, [facility] [address] [id number] [address] [place] [address] Jul, Bipolar disorder, in partial remission, most recent episode depressed F31.75 and Mild cognitive impairment G31.84 [facility] [address] [id number] [address] [place] [address] Jul, Chronic pain G89.29 ; Diabet es E11.9 ; Essential hypertension I10 ; Ill feeling R68.89 ; Local infection of the skin and subcutaneous tissue, unspecified L08.9 and Other injury of unspecified body region, initial encounter T14.8XXA [facility] [address] [id number] [address] [place] [address] Jun, Bipolar disorder, in partial remission, most recent episode depressed F31.75 and Mild cognitive impairment G31.84 [facility] [address] [id number] [address] [place] [address] Jun, [facility] [address] [id number] [address] [place] [address] Jun, Bipolar disorder, in partial remission, most recent episode depressed F31.75 and Mild cognitive impairment G31.84 [facility] [address] [id number] [address] [place] [address] Jun, Psychophysiological insomnia F51.04 [facility] [address] [id number] [address] [place] [address] Jun, Psychophysiological insomnia F51.04 ; Chronic pain G89.29 ; Bipolar I disorder, most recent episode (or current) mixed, moderate F31.62 ; 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 ; Polyneuropathy associated with underlying disease G63 ; Type 2 diabetes mellitus with diabetic neuropathy, unspecified E11.40 ; 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 and Hyperglycemia R73.9 [facility] [address] [id number] [address] [place] [address] Jun, Bipolar disorder, in partial remission, most recent episode depressed F31.75 and Mild cognitive impairment G31.84 [facility] [address] [id number] [address] [place] [address] Jun, [facility] [address] [id number] [address] [place] [address] Jun, Bipolar disorder F31.9 [facility] [address] [id number] [address] [place] [address] May, Bipolar disorder, in partial remission, most recent episode depressed F31.75 and Mild cognitive impairment G31.84 [facility] [address] [id number] [address] [place] [address] May, [facility] [address] [id number] [address] [place] [address] Apr, Chronic pain G89.29 and Bipo lar disorder F31.9 [facility] [address] [id number] [address] [place] [address] Mar, Bipolar disorder F31.9 and C hronic pain G89.29 [facility] [address] [id number] [address] [place] [address] Feb, Bipolar disorder F31.9 [facility] [address] [id number] [address] [place] [address] Feb, Cellulitis of right upper ex tremity L03.113 and Skin abrasion T14.8XXA [facility] [address] [id number] [address] [place] [address] Feb, Bipolar disorder, in partial remission, most recent episode depressed F31.75 and Mild cognitive impairment G31.84 [facility] [address] [facility] [id number] [address] [place] [address] Feb, Chronic pain G89.29 [facility] [address] [facility] [id number] [address] [place] [address] Feb, Bipolar disorder, in partial remission, most recent episode depressed F31.75 and Mild cognitive impairment G31.84 [facility] [address] [facility] [id number] [address] [place] [address] January, Bipolar disorder, in partial remission, most recent episode depressed F31.75 and Mild cognitive impairment G31.84 [facility] [address] [id number] [address] [place] [address] January, Chronic pain G89.29 and Bipo lar disorder F31.9 [facility] [address] [facility] [id number] [address] [place] [address] January, Bipolar disorder, in partial remission, most recent episode depressed F31.75 and Mild cognitive impairment G31.84 [facility] [address] [facility] [id number] [address] [place] [address] Dec, [facility] [address] [facility] [id number] [address] [place] [address] Dec, Chronic pain G89.29 and Bipo lar disorder F31.9 [facility] [address] [facility] [id number] [address] [place] [address] Dec, Edema of both lower extremit ies R60.0 [place] [address] [facility] [id number] [address] [place] [address] Dec, Bipolar disorder F31.9 [place] [address] [facility] [id number] [address] [place] [address] Dec, Bipolar disorder, in partial remission, most recent episode depressed F31.75 and Mild cognitive impairment G31.84 [place] [address] [facility] [id number] [address] [place] [address] Nov, [place] [address] [facility] [id number] [address] [place] [address] Nov, Chronic pain G89.29 [facility] [address] [facility] [id number] [address] [place] [address] Nov, Bipolar disorder, in partial remission, most recent episode depressed F31.75 and Mild cognitive impairment G31.84 [place] [address] [facility] [id number] [address] [place] [address] Nov, Bipolar disorder F31.9 [place] [address] [facility] [id number] [address] [place] [address] 04 Nov, 2018 Encounter for Medicare annua [...] unspecified morphology N40.1 and Essential hypertension I10 [place] [address] [place] [id number] [address] [place] [address] Oct, Chronic pain G89.29 [place] [address] [place] [id number] [address] [place] [address] Oct, Diabetes E11.9 [place] [id number] [address] [place] [address] Oct, Bipolar I disorder, most rec ent episode (or current) mixed, moderate F31.62 and Mild cognitive impairment G31.84 [place] [address] [place] [id number] [address] [place] [address] Oct, Bipolar I disorder, most rec ent episode (or current) mixed, moderate F31.62 and Mild cognitive impairment G31.[address] [id number] Sep, Bipolar I disorder, most rec ent episode (or current) mixed, moderate F31.62 and Mild cognitive impairment G31.84 [place] [address] [place] [id number] [address] [place] [address] Sep, [address] [address] Sep, Diabetes E11.9 ; Hypoxia R09 .02 ; Hyperglycemia R73.9 ; Therapeutic drug monitoring Z51.81 ; BMI 50.0-59.9, adult Z68.43 and Skin cancer C44.90 [place] [address] [place] [id number] [address] [place] [address] Sep, Chronic pain G89.29 [place] [id number] [place] [address] Sep, Bipolar I disorder, most rec ent episode (or current) mixed, moderate F31.62 [place] [id number] [address] [place] [address] Sep, [place] [id number] [address] [place] [address] Sep, [facility] [address] [id number] [address] [place] [address] Aug, Chronic pain G89.29 [facility] [address] [id number] [address] [place] [address] Aug, Bipolar I disorder, most rec ent episode (or current) mixed, moderate F31.62 [facility] [address] [id number] [address] [place] [address] Aug, Bipolar I disorder, most rec ent episode (or current) mixed, moderate F31.62 and Mild cognitive impairment G31.84 [facility] [address] [id number] [address] [place] [address] Jul, [facility] [address] [id number] [address] [place] [address] Jul, Chronic pain G89.29 [facility] [address] [id number] [address] [place] [address] Jul, Bipolar I disorder, most rec ent episode (or current) mixed, moderate F31.62 and Mild cognitive impairment G31.84 [facility] [address] [id number] [address] [place] [address] Jul, Bipolar I disorder, most rec ent episode (or current) mixed, moderate F31.62 and MCI (mild cognitive impairment) G31.84 [facility] [address] [id number] [address] [place] [address] Jul, [facility] [address] [id number] [address] [place] [address] Jul, [facility] [address] [facility] [id number] [address] [place] [address] Jul, Bipolar I disorder, most rec ent episode (or current) mixed, moderate F31.62 [facility] [address] [facility] [id number] [address] [place] [address] Jul, Chronic pain G89.29 [facility] [address] [id number] [address] [place] [address] Jun, Bipolar I disorder, most rec ent episode (or current) mixed, moderate F31.62 [facility] [address] [id number] [address] [place] [address] Jun, Pre-procedure lab exam Z01.8 12 [facility] [address] [id number] [address] [place] [address] Jun, [facility] [address] [id number] [place] [id number] Jun, [facility] [address] [id number] [address] [place] [address] Jun, [facility] [address] [facility] [id number] [address] [place] [address] Jun, Forgetfulness R68.89 ; Pre-s yncope R55 ; Localized edema R60.0 ; Other iron deficiency anemia D50.8 and BMI 50.0-59.9, adult Z68.43 [facility] [address] [id number] [address] [place] [address] Jun, Chronic pain G89.29 [facility] [address] [facility] [id number] [address] [place] [address] Jun, Chronic pain G89.29 [facility] [address] [id number] [address] [place] [address] Jun, Bipolar I disorder, most rec ent episode (or current) mixed, moderate F31.62 [facility] [address] [id number] [address] [place] [address] May, Chronic pain G89.29 [facility] [address] [id number] [address] [place] [address] Apr, [facility] [address] [facility] [id number] [address] [place] [address] Apr, Chronic pain G89.29 [place] [address] [place] [id number] [address] [place] [address] Apr, Primary osteoarthritis of ri ght knee M17.11 [place] [address] [place] [id number] [address] [place] [address] Mar, [place] [address] [id number] Mar, BMI 50.0-59.9, adult Z68.43 and Bipolar disorder, in partial remission, most recent episode depressed F31.75 [place] [address] [address] Mar, Diabetes E11.9 ; Pure hyperc holesterolemia E78.00 ; Essential hypertension I10 ; Nausea with vomiting, unspecified R11.2 and Headache, unspecified headache type R51 [place] [address] [address] Mar, Bipolar I disorder, most rec ent episode (or current) mixed, moderate F31.62 [place] [address] [id number] Mar, Bipolar I disorder, most rec ent episode (or current) mixed, moderate F31.62 [place] [address] [place] [id number] [address] [place] [address] Mar, Chronic pain G89.29 [place] [address] [place] [id number] [address] [place] [address] Mar, Bipolar I disorder, most rec ent episode (or current) mixed, moderate F31.62 [place] [address] [id number] Feb, Bipolar I disorder, most rec ent episode (or current) mixed, moderate F31.62 [place] [address] [place] [id number] [address] [place] [address] Feb, Chronic pain G89.29 [facility] [address] [id number] [address] [place] [address] 06 Feb, 2018 Decubitus ulcer of right josselin t, stage 3 L89.893 and BMI 50.0-59.9, adult Z68.43 [facility] [address] [id number] [address] [place] [address] Feb, Bipolar I disorder, most rec ent episode (or current) mixed, moderate F31.62 [facility] [address] [id number] [address] [place] [address] Feb, [facility] [address] [id number] [address] [place] [address] January, [facility] [address] [facility] [id number] [address] [place] [address] January, Chronic pain G89.29 [facility] [address] [id number] [address] [place] [address] January, Bipolar I disorder, most rec ent episode (or current) mixed, moderate F31.62 [facility] [address] [facility] [id number] [address] [place] [address] January, Bipolar I disorder, most rec ent episode (or current) mixed, moderate F31.62 [facility] [address] [facility] [id number] [address] [place] [id number] Dec, Bipolar I disorder, most rec ent episode (or current) mixed, moderate F31.62 and BMI 50.0-59.9, adult Z68.43 [facility] [address] [id number] [address] [place] [id number] Dec, Bipolar I disorder, most rec ent episode (or current) mixed, moderate F31.62 [facility] [address] [facility] [id number] [address] [place] [id number] Dec, Chronic pain G89.29 [facility] [address] [facility] [id number] [address] [place] [id number] Dec, DM neuro manif type II E11.4 9 ; Right flank pain R10.9 ; [employer] 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 Z79.891 ; Encounter for medication monitoring Z51.81 and BMI 50.0-59.9, adult Z68.43 [facility] [address] [facility] [id number] [address] [place] [id number] Dec, Bipolar I disorder, most rec ent episode (or current) mixed, moderate F31.62 [place] [address] [facility] [id number] [address] [place] [phone] Nov, Bipolar I disorder, most rec ent episode (or current) mixed, moderate F31.62 [place] [address] [place] [id number] [address] [place] [address] Nov, Chronic pain G89.29 [place] [address] [place] [id number] [address] [place] [id number] Nov, Bipolar I disorder, most rec ent episode (or current) mixed, moderate F31.62 [place] [id number] [place] [id number] [address] [place] [address] Nov, Hypokalemia E87.6 [place] [address] [place] [id number] [address] [place] [address] Nov, Bipolar I disorder, most rec ent episode (or current) mixed, moderate F31.62 [place] [address] [place] [id number] [address] [place] [address] Oct, Chronic pain G89.29 [place] [address] [facility] [id number] [address] [place] [address] Oct, BMI 50.0-59.9, adult Z68.43 and Bipolar I disorder, most recent episode (or current) mixed, moderate F31.62 [place] [address] [facility] [id number] [address] [place] [address] Oct, Bipolar I disorder, most rec ent episode (or current) mixed, moderate F31.62 [facility] [address] [facility] [id number] [address] [place] [address] Oct, [facility] [address] [facility] [id number] [address] [place] [phone] Oct, Hypokalemia E87.6 [facility] [address] [facility] [id number] [address] [place] [address] Oct, DM neuro manif type II E11.4 9 [facility] [address] [facility] [id number] [address] [place] [address] Oct, Bipolar I disorder, most rec ent episode (or current) mixed, moderate F31.62 [facility] [address] [place] [id number] [place] [phone] Oct, Bipolar I disorder, most rec ent episode (or current) mixed, moderate F31.62 [facility] [address] [place] [id number] [address] [place] [phone] 14 Oct, 2017 Hyperkalemia E87.5 ; Falling R29.6 ; BMI 50.0-59.9, adult Z68.43 and Acute left ankle pain M25.572 [place] [address] [address] Oct, DM neuro manif type II E11.4 9 [facility] [address] [place] [id number] [address] [place] [phone] Oct, [facility] [address] [place] [id number] [address] [place] [phone] Sep, Chronic pain G89.29 [facility] [address] [address] Sep, [facility] [address] [place] [id number] [place] [phone] Sep, Bilateral primary osteoarthr itis of knee M17.0 [facility] [address] [place] [id number] [place] [address] [place] [address] 18 Sep, 2017 Generalized edema R60.1 [facility] [address] [facility] [id number] [address] [place] [id number] 16 Sep, 2017 Bipolar I disorder, most rec ent episode (or current) mixed, moderate F31.62 [facility] [address] [place] [id number] [address] [place] [address] 15 Sep, 2017 Hypoxia R09.02 ; Other hyper volemia E87.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 ; Anemia of chronic illness D63.8 and BMI 50.0- 59.9, adult Z68.43 [place] [address] [place] [id number] [address] [place] [address] Sep, [place] [address] [place] [id number] [address] [place] [address] Sep, Bipolar I disorder, most rec ent episode (or current) mixed, moderate F31.62 [place] [address] [facility] [id number] [address] [place] [address] Aug, Chronic pain G89.29 [facility] [address] [facility] [id number] [address] [place] [address] 27 Aug, 2017 Generalized edema R60.1 [place] [address] [facility] [id number] [address] [place] [phone] 18 Aug, 2017 [facility] [address] [facility] [id number] [address] [place] [phone] Aug, [facility] [address] [facility] [id number] [address] [place] [phone] 14 Aug, 2017 Bipolar I disorder, most rec ent episode (or current) mixed, moderate F31.62 [facility] [address] [facility] [id number] [address] [place] [phone] 07 Aug, 2017 Bipolar I disorder, most rec ent episode (or current) mixed, moderate F31.62 [facility] [address] [facility] [id number] [address] [place] [address] Aug, Chronic pain G89.29 [facility] [address] [facility] [id number] [address] [place] [address] Jul, Bipolar I disorder, most rec ent episode (or current) mixed, moderate F31.62 [facility] [address] [place] [id number] [address] [place] [address] Jul, Bipolar I disorder, most rec ent episode (or current) mixed, moderate F31.62 and BMI 60.0-69.9, adult Z68.44 [place] [address] [place] [id number] [address] [place] [address] Jul, Bipolar I disorder, most rec ent episode (or current) mixed, moderate F31.62 [place] [address] [place] [id number] [address] [place] [address] Jul, Chronic pain G89.29 [facility] [address] [facility] [id number] [address] [place] [id number] Jul, Bipolar I disorder, most rec ent episode (or current) mixed, moderate F31.62 [place] [address] [place] [id number] [address] [place] [address] Jun, Polyneuropathy associated wi th underlying disease G63 and Diabetes E11.9 [facility] [address] [facility] [id number] [address] [place] [id number] Jun, Bipolar I disorder, most rec ent episode (or current) mixed, moderate F31.62 [facility] [address] [facility] [id number] [address] [place] [address] Jun, Chronic pain G89.29 [facility] [address] [facility] [id number] [address] [place] [address] May, Bipolar I disorder, most rec ent episode (or current) mixed, moderate F31.62 [facility] [address] [id number] [address] [place] [id number] 21 May, 2017 Bipolar I disorder, most rec ent episode (or current) mixed, moderate F31.62 [facility] [address] [id number] [address] [place] [phone] 20 May, 2017 Diabetic polyneuropathy asso ciated with type 2 diabetes mellitus E11.42 [facility] [address] [id number] [address] [place] [phone] 18 May, 2017 Bipolar I disorder, most rec ent episode (or current) mixed, moderate F31.62 [facility] [address] [id number] [address] [place] [id number] 13 May, 2017 Bipolar I disorder, most rec ent episode (or current) mixed, moderate F31.62 [facility] [address] [id number] [address] [place] [address] 12 May, 2017 Chronic pain G89.29 [facility] [address] [id number] [address] [place] [id number] 30 Apr, 2017 Bipolar I disorder, most rec ent episode (or current) mixed, moderate F31.62 [facility] [address] [id number] [address] [place] [address] Apr, [facility] [address] [id number] [address] [place] [address] Apr, Chronic pain G89.29 and DM n euro manif type II E11.49 [facility] [address] [id number] [address] [place] [address] Apr, [facility] [address] [id number] [address] [place] [address] Apr, Bipolar I disorder, most rec ent episode (or current) mixed, moderate F31.62 [facility] [address] [id number] [address] [place] [id number] 14 Apr, 2017 Chronic pain G89.29 [facility] [address] [id number] [address] [place] [address] Apr, Iliotibial band syndrome, le ft M76.32 [facility] [address] [facility] [id number] [address] [place] [address] Apr, Bipolar I disorder, most rec ent episode (or current) mixed, moderate F31.62 [facility] [address] [facility] [id number] [address] [place] [id number] Mar, Bipolar I disorder, most rec ent episode (or current) mixed, moderate F31.62 [facility] [address] [facility] [id number] [address] [place] [phone] Mar, Bipolar I disorder, most rec ent episode (or current) mixed, moderate F31.62 [facility] [address] [place] [id number] [address] [place] [address] Mar, [facility] [address] [place] [id number] [address] [place] [address] Mar, Bipolar I disorder, most rec ent episode (or current) mixed, moderate F31.62 [place] [address] [place] [id number] [address] [place] [address] Mar, Chronic pain G89.29 [facility] [address] [place] [id number] [address] [place] [address] Mar, Bipolar I disorder, most rec ent episode (or current) mixed, moderate F31.62 [facility] [address] [place] [id number] [address] [place] [address] Mar, Bipolar I disorder, most rec ent episode (or current) mixed, moderate F31.62 [facility] [address] [facility] [id number] [address] [place] [address] Mar, Acute pain of left knee M25. 562 ; Left hip pain M25.552 ; Generalized edema R60.1 and Tongue swelling R22.0 [facility] [address] [facility] [id number] [address] [place] [phone] Mar, [facility] [address] [id number] [address] [place] [phone] Feb, Chronic pain G89.29 [facility] [address] [facility] [id number] [address] [place] [id number] Feb, Diabetes E11.9 [facility] [address] [facility] [id number] [address] [place] [address] January, Chronic pain G89.29 [facility] [address] [facility] [id number] [address] [place] [address] January, [facility] [address] [facility] [id number] [address] [place] [phone] January, Bipolar I disorder, most rec ent episode (or current) mixed, moderate F31.62 [place] [address] [facility] [id number] [address] [place] [address] Dec, Bipolar I disorder, most rec ent episode (or current) mixed, moderate F31.62 [facility] [address] [facility] [id number] [address] [place] [phone] Dec, Chronic pain G89.29 [facility] [address] [facility] [id number] [address] [place] [address] Dec, Bipolar I disorder, most rec ent episode (or current) mixed, moderate F31.62 [place] [address] [facility] [id number] [address] [place] [address] Dec, Diabetes E11.9 ; Essential h ypertension I10 ; Chronic pain G89.29 and Morbid obesity E66.01 [facility] [address] [facility] [id number] [address] [place] [id number] Dec, [facility] [address] [facility] [id number] [address] [place] [address] Dec, Bipolar I disorder, most rec ent episode (or current) mixed, moderate F31.62 [place] [address] [facility] [id number] [address] [place] [address] Dec, Bipolar I disorder, most rec ent episode (or current) mixed, moderate F31.62 [facility] [address] [id number] [address] [place] [address] Nov, Chronic pain G89.29 [facility] [address] [id number] [address] [place] [address] Nov, Bipolar I disorder, most rec ent episode (or current) mixed, moderate F31.62 [facility] [address] [id number] [address] [place] [address] Nov, [facility] [address] [id number] [address] [place] [address] Nov, Bipolar I disorder, most rec ent episode (or current) mixed, moderate F31.62 [facility] [address] [id number] [address] [place] [address] Nov, Bipolar I disorder, most rec ent episode (or current) mixed, moderate F31.62 [facility] [address] [id number] [address] [place] [phone] Nov, [facility] [address] [id number] [address] [place] [address] Nov, [facility] [address] [id number] [address] [place] [address] Nov, [facility] [address] [id number] [address] [place] [address] Oct, Chronic pain G89.29 [facility] [address] [id number] [address] [place] [phone] Oct, Bipolar I disorder, most rec ent episode (or current) mixed, moderate F31.62 [facility] [address] [id number] [address] [place] [address] Oct, [facility] [address] [id number] [address] [place] [id number] 15 Feb, 2017 Chronic pain G89.29 ; Diabet es E11.9 ; Anxiety F41.9 and 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 [facility] [address] [id number] [address] [place] [address] Oct, [facility] [address] [id number] [address] [place] [address] Oct, Diabetes E11.9 [facility] [address] [id number] [address] [place] [address] Oct, Bipolar I disorder, most rec ent episode (or current) mixed, moderate F31.62 [facility] [address] [id number] [address] [place] [address] Sep, Chronic pain G89.29 [facility] [address] [facility] [id number] [address] [place] [address] Sep, Chronic pain G89.29 [facility] [address] [id number] [address] [place] [address] Aug, Chronic pain G89.29 [facility] [address] [id number] [address] [place] [phone] Jul, [facility] [address] [facility] [id number] [address] [place] [address] Jul, Diabetes E11.9 [facility] [address] [facility] [id number] [address] [place] [address] Jul, Chronic pain G89.29 [facility] [address] [id number] [address] [place] [phone] Jul, Bipolar I disorder, most rec ent episode (or current) mixed, moderate F31.62 [facility] [address] [facility] [id number] [address] [place] [address] Jun, Bipolar I disorder, most rec ent episode (or current) mixed, moderate F31.62 [facility] [address] [facility] [id number] [address] [place] [id number] Jun, [facility] [address] [facility] [id number] [address] [place] [phone] Jun, Bipolar I disorder, most rec ent episode (or current) mixed, moderate F31.62 [facility] [address] [facility] [id number] [address] [place] [id number] 30 May, 2016 Insomnia, unspecified type G 47.00 [facility] [address] [facility] [id number] [address] [place] [address] May, Bipolar I disorder, most rec ent episode (or current) mixed, moderate F31.62 [place] [address] [place] [id number] [address] [place] [address] 14 May, 2016 [facility] [address] [place] [id number] [address] [place] [address] 08 May, 2016 Bipolar I disorder, most rec ent episode (or current) mixed, moderate F31.62 [facility] [address] [place] [id number] [address] [place] [address] May, Diabetes E11.9 and Essential hypertension I10 [facility] [address] [place] [id number] [address] [place] [address] Apr, Chronic pain G89.29 [facility] [address] [place] [id number] [place] [address] Apr, Bipolar I disorder, most rec ent episode (or current) mixed, moderate F31.62 [facility] [address] [place] [id number] [address] [place] [address] Apr, [facility] [address] [place] [id number] [address] [place] [address] Apr, [facility] [address] [place] [id number] [address] [place] [address] Mar, Chronic pain G89.29 ; Headac he, unspecified headache type R51 ; Neuropathy G62.9 ; Pain of right hip joint M25.551 and Essential hypertension I10 [facility] [address] [id number] [address] [place] [address] Mar, Chronic pain G89.29 [facility] [address] [id number] [address] [place] [id number] Mar, Bipolar I disorder, most rec ent episode (or current) mixed, moderate F31.62 [facility] [address] [id number] [address] [place] [address] Feb, Bipolar I disorder, most rec ent episode (or current) mixed, moderate F31.62 and Insomnia, unspecified type G47.00 [facility] [address] [id number] [address] [place] [address] Feb, Chronic pain G89.29 [facility] [address] [id number] [address] [place] [address] Feb, Bipolar I disorder, most rec ent episode (or current) mixed, moderate F31.62 [facility] [address] [id number] [address] [place] [address] January, Bipolar I disorder, most rec ent episode (or current) mixed, moderate F31.62 [facility] [address] [id number] [address] [place] [address] January, Chronic pain G89.29 [facility] [address] [id number] [address] [place] [address] January, Chronic pain G89.29 and Esse ntial hypertension I10 [facility] [address] [id number] [address] [place] [id number] January, Bipolar I disorder, most rec ent episode (or current) mixed, moderate F31.62 [facility] [address] [id number] [address] [place] [address] Dec, [facility] [address] [facility] [id number] [address] [place] [address] Dec, [facility] [id number] [place] [address] Dec, [facility] [address] [facility] [id number] [address] [place] [address] Dec, [facility] [address] [place] [id number] [address] [place] [address] Nov, Reactive airway disease J45. 909 [facility] [address] [place] [id number] [address] [place] [address] Nov, [facility] [address] [place] [id number] [place] [address] Nov, [facility] [address] [address] Nov, [facility] [address] [address] Nov, [facility] [address] [address] Nov, Onychomycosis B35.1 ; Hammer toe M20.40 ; Leonard or callus L84 and DM neuro manif type II E11.49 [facility] [address] [place] [id number] [address] [place] [address] Nov, Chronic pain G89.29 ; Leukoc ytosis D72.829 and Diabetes E11.9 [facility] [address] [place] [id number] [address] [place] [address] Nov, [facility] [id number] [place] [address] Oct, Bronchitis J40 [facility] [address] [place] [id number] [address] [place] [address] Oct, [facility] [address] [place] [id number] [address] [place] [address] Oct, [facility] [address] [place] [id number] [address] [place] [address] Oct, Mastoiditis, unspecified lat erality H70.90 and Type 2 diabetes mellitus with complication E11.8 [facility] [address] [place] [id number] [address] [place] [address] Sep, [facility] [id number] [address] [place] [phone] Sep, Dysuria R30.0 ; Cough R05 ; Benign prostatic hyperplasia with lower urinary tract symptoms, unspecified morphology N40.1 ; Hypokalemia E87.6 and Eustachian tube dysfunction, unspecified laterality H69.80 [place] [id number] [address] [place] [phone] Sep, Moderate mixed bipolar I dis order F31.62 [place] [id number] [place] [id number] Sep, Hypokalemia E87.6 [place] [id number] [place] [phone] Sep, [place] [id number] [place] [id number] Sep, Upper respiratory tract infe ction, unspecified type J06.9 [facility] [id number] [place] [phone] Aug, [place] [id number] [place] [phone] Aug, Dysuria R30.0 [facility] [id number] [place] [id number] Aug, [place] [id number] [place] [phone] Jul, [facility] [id number] [place] [phone] Jul, [facility] [id number] [place] [id number] Jul, [facility] [address] [id number] [address] [place] [id number] Jul, [facility] [address] [id number] [address] [place] [phone] Jun, [facility] [address] [facility] [id number] [address] [place] [id number] Jun, [facility] [address] [facility] [id number] [address] [place] [id number] Jun, [facility] [address] [id number] [address] [place] [id number] May, [facility] [address] [id number] [address] [place] [id number] May, Bipolar I disorder, most rec ent episode (or current) mixed, moderate 296.62 [facility] [address] [facility] [id number] [address] [place] [phone] May, [facility] [address] [facility] [id number] [address] [place] [id number] May, Bipolar I disorder, most rec ent episode (or current) mixed, moderate 296.62 and Major depressive disorder, recurrent episode, severe, specified as with psychotic behavior 296.34 [facility] [address] [facility] [id number] [address] [place] [address] May, Bipolar I disorder, most rec ent episode (or current) mixed, moderate 296.62 [facility] [address] [facility] [id number] [address] [place] [id number] May, [facility] [address] [facility] [id number] [address] [place] [id number] Apr, [facility] [address] [facility] [id number] [address] [place] [address] Apr, [facility] [address] [facility] [id number] [address] [place] [id number] Apr, Unspecified disorder of kidn ey and ureter 593.9 and Diabetes mellitus type 2, uncontrolled 250.02 [facility] [address] [facility] [id number] [address] [place] [id number] Apr, [facility] [address] [facility] [id number] [address] [place] [phone] Apr, [facility] [address] [facility] [id number] [address] [place] [id number] Apr, [facility] [address] [facility] [id number] [address] [place] [phone] Apr, [facility] [address] [facility] [id number] [address] [place] [address] Apr, Diabetes mellitus type II, u ncontrolled 250.02 [facility] [address] [facility] [id number] [address] [place] [id number] Apr, [facility] [address] [place] [id number] [address] [place] [id number] Mar, [facility] [address] [facility] [id number] [address] [place] [phone] Mar, [facility] [address] [id number] [address] [place] [address] Mar, [facility] [address] [id number] [address] [place] [address] Mar, Major depressive disorder, r ecurrent episode, severe, specified as with psychotic behavior 296.34 and Bipolar I disorder, most recent episode (or current) mixed, moderate 296.62 [facility] [address] [id number] [address] [place] [address] Mar, Diabetes 250.00 ; Anuria 788 .5 ; Nausea and vomiting 787.01 and Diarrhea 787.91 [facility] [address] [facility] [id number] [address] [place] [address] Mar, Diabetes 250.00 [facility] [address] [id number] [address] [place] [address] Mar, [facility] [address] [id number] [address] [place] [address] Mar, Diabetes 250.00 [facility] [address] [id number] [address] [place] [address] Mar, [facility] [address] [id number] [address] [place] [phone] Mar, [facility] [address] [place] [id number] [address] [place] [address] Mar, [facility] [address] [id number] [address] [place] [id number] Mar, [facility] [address] [id number] [address] [place] [id number] Mar, Bipolar I disorder, most rec ent episode (or current) mixed, moderate 296.62 and Major depressive disorder, recurrent episode, severe, specified as with psychotic behavior 296.34 [facility] [address] [place] [id number] [address] [place] [address] Mar, Magnesium deficiency 275.2 ; Hypokalemia 276.8 ; Nausea & vomiting 787.01 and Diabetes mellitus type 2, uncontrolled 250.02 [facility] [address] [id number] [address] [place] [id number] Feb, [facility] [address] [place] [id number] [address] [place] [address] Feb, Bipolar I disorder, most rec ent episode (or current) mixed, moderate 296.62 [facility] [address] [id number] [address] [place] [id number] Feb, Nausea and vomiting 787.01 ; Left elbow pain 719.42 ; Anuria 788.5 and Diabetes 250.00 [facility] [address] [id number] [address] [place] [id number] Feb, [facility] [address] [address] Feb, Hypopotassemia 276.8 and Hyp okalemia 276.8 [facility] [address] [id number] [address] [place] [address] Feb, Hypopotassemia 276.8 and Hyp okalemia 276.8 [facility] [address] [id number] [address] [place] [address] Feb, Seborrheic keratoses 702.19 [facility] [address] [id number] [address] [place] [address] Feb, Hypopotassemia 276.8 and Low magnesium levels 275.2 [facility] [address] [id number] [address] [place] [address] January, [facility] [address] [id number] [address] [place] [phone] January, [facility] [address] [id number] [address] [place] [address] January, [facility] [address] [id number] [address] [place] [id number] January, Scalp lesion 709.9 [facility] [address] [id number] [address] [place] [id number] January, [facility] [address] [facility] [id number] [address] [place] [id number] Dec, Tear of medial cartilage or meniscus of knee, current 836.0 and 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 [facility] [address] [id number] [address] [place] [address] Dec, [facility] [address] [id number] [address] [place] [id number] Dec, [facility] [address] [facility] [id number] [address] [place] [address] Dec, Squamous cell carcinoma, 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 [facility] [address] [id number] [address] [place] [id number] 14 Dec, 2014 [facility] [address] [id number] [address] [place] [address], [place] [address] Dec, [facility] [address] [id number] [address] [place] [address], [place] [address] Nov, [facility] [address] [id number] [address] [place] [address], [place] [address] Nov, [facility] [address] [id number] [address] [place] [address], [place] [address] Nov, [facility] [address] [id number] [address] [place] [address], [place] [address] Nov, [facility] [address] [id number] [address] [place] [address], [place] [address] Nov, [facility] [address] [id number] [address] [place] [address], [place] [address] Nov, [facility] [address] [id number] [address] [place] [address], [place] [address] Nov, [facility] [address] [id number] [address] [place] [address], [place] [address] Nov, [facility] [address] [id number] [address] [place] [address], [place] [address] Nov, [facility] [address] [id number] [address] [place] [address], [place] [address] Nov, [facility] [address] [id number] [address] [place] [id number] Nov, [facility] [address] [id number] [address] [place] [address], [place] [address] Nov, [facility] [address] [id number] [address] [place] [address], [place] [address] Oct, [facility] [address] [id number] [address] [place] [address], [place] [address] Oct, [facility] [address] [id number] [address] [place] [address], [place] [address] Oct, 2014 [facility] [address] [id number] [address] [place] [address], [place] [address] Oct, 2014 [facility] [address] [id number] [address] [place] [address], [place] [address] Oct, 2014 [facility] [address] [id number] [address] [place] [address], [place] [address] Oct, 2014 [facility] [address] [id number] [address] [place] [address], [place] [address] Oct, 2014 [facility] [address] [id number] [address] [place] [address], [place] [address] Oct, 2014 [facility] [address] [id number] [address] [place] [address], [place] [address] Oct, [facility] [address] [id number] [address] [place] [address] Sep, [facility] [address] [id number] [address] [place] [address] Sep, [facility] [address] [id number] [address] [place] [id number] Sep, [facility] [address] [id number] [address] [place] [id number] Sep, [facility] [address] [id number] [address] [place] [id number] Sep, [facility] [address] [id number] [address] [place] [address] Sep, [facility] [address] [id number] [address] [place] [id number] Sep, [facility] [address] [id number] [address] [place] [address] Sep, [facility] [address] [id number] [address] [place] [address] 14 Sep, 2014 [facility] [address] [id number] [address] [place] [address], [place] [address] 14 Sep, 2014 [facility] [address] [id number] [address] [place] [address], [place] [address] Sep, [facility] [address] [id number] [address] [place] [address], [place] [address] Sep, [facility] [address] [id number] [address] [place] [address], [place] [address] Sep, [facility] [address] [id number] [address] [place] [address], [place] [address] Sep, [facility] [address] [id number] [address] [place] [address], [place] [address] Sep, [facility] [address] [id number] [address] [place] [address], [place] [address] Sep, [facility] [address] [id number] [address] [place] [address], [place] [address] Aug, [facility] [address] [id number] [address] [place] [address], [place] [address] 31 Aug, 2014 [facility] [address] [id number] [address] [place] [address], [place] [address] 31 Aug, 2014 [facility] [address] [id number] [address] [place] [address], [place] [address] 31 Aug, 2014 [facility] [address] [id number] [address] [place] [address], [place] [address] 31 Aug, 2014 [facility] [address] [id number] [address] [place] [address], [place] [address] 31 Aug, 2014 [facility] [address] [id number] [address] [place] [address], [place] [address] 17 Aug, 2014 [facility] [address] [id number] [address] [place] [address], [place] [address] 17 Aug, 2014 [facility] [address] [id number] [facility] [place] [address] Aug, [facility] [address] [id number] [facility] [place] [address] Aug, [facility] [address] [id number] [facility] [place] [address] Aug, [facility] [address] [place] [id number] Aug, [facility] [address] [id number] [facility] [place] [address] Aug, [facility] [address] [id number] [facility] [place] [address] Aug, [facility] [address] [id number] [facility] [place] [address] Aug, [facility] [address] [id number] [address] [place] [address], [place] [address] Aug, [facility] [address] [id number] [address] [place] [address], [place] [address] Aug, [facility] [address] [id number] [address] [place] [address], [place] [address] Aug, [facility] [address] [id number] [address] [place] [address], [place] [address] Aug, [facility] [address] [id number] [address] [place] [address], [place] [address] Aug, [facility] [address] [id number] [address] [place] [address], [place] [address] Aug, [facility] [address] [id number] [address] [place] [address], [place] [address] Aug, [facility] [address] [id number] [address] [place] [address], [place] [address] Aug, [facility] [address] [id number] [address] [place] [address], [place] [address] Aug, [facility] [address] [id number] [address] [place] [address], [place] [address] Aug, [facility] [address] [id number] [address] [place] [address], [place] [address] Aug, [facility] [address] [id number] [address] [place] [address], [place] [address] Aug, [facility] [address] [id number] [address] [place] [address], [place] [address] Aug, [facility] [address] [id number] [address] [place] [address], [place] [address] Aug, [facility] [address] [id number] [address] [place] [address], [place] [address] Aug, [facility] [address] [id number] [address] [place] [address], [place] [address] Jul, [facility] [address] [id number] [address] [place] [address], [place] [address] Jul, [facility] [address] [id number] [address] [place] [address], [place] [address] Jul, [facility] [address] [id number] [address] [place] [address], [place] [address] Jul, [facility] [address] [id number] [address] [place] [address], [place] [address] Jul, [facility] [address] [id number] [address] [place] [address], [place] [address] Jul, [facility] [address] [id number] [address] [place] [address], [place] [address] Jul, [facility] [address] [id number] [address] [place] [address], [place] [address] Jul, [facility] [address] [id number] [address] [place] [address], [place] [address] Jul, [facility] [address] [id number] [address] [place] [address] Jul, [facility] [address] [id number] [address] [place] [address], [place] [address] Jun, [facility] [address] [id number] [address] [place] [address], [place] [address] Jun, [facility] [address] [id number] [address] [place] [address], [place] [address] Jun, [facility] [address] [id number] [address] [place] [address], [place] [address] Jun, [facility] [address] [id number] [address] [place] [address], [place] [address] Jun, [facility] [address] [id number] [address] [place] [address], [place] [address] Jun, [facility] [address] [id number] [address] [place] [address], [place] [address] Jun, [facility] [address] [id number] [address] [place] [address], [place] [address] Jun, [facility] [address] [id number] [address] [place] [address], [place] [address] Jun, [facility] [address] [id number] [address] [place] [address], [place] [address] Jun, [facility] [address] [id number] [address] [place] [address], [place] [address] 29 May, 2013 [facility] [address] [id number] [address] [place] [address] 29 Sep, 2013 [facility] [address] [id number] [address] [place] [address], [place] [address] 26 Sep, 2013 [facility] [address] [id number] [address] [place] [address], [place] [address] 26 May, 2013 [facility] [address] [id number] [address] [place] [address], [place] [address] 17 Sep, 2013 [facility] [address] [id number] [facility] [place] [address] 17 May, 2013 [facility] [address] [id number] [facility] [place] [address] 15 May, 2013 [facility] [address] [id number] [facility] [place] [address] 15 May, 2013 [facility] [address] [id number] [address] [place] [address], [place] [address] 15 May, 2013 [facility] [address] [id number] [facility] [place] [address] 15 May, 2013 [facility] [address] [id number] [address] [place] [address], [place] [address] 10 May, 2013 [facility] [address] [id number] [address] [place] [address], [place] [address] 10 May, 2013 [facility] [address] [id number] [address] [place] [address], [place] [address] 09 May, 2013 [facility] [address] [id number] [address] [place] [address], [place] [address] 09 May, 2013 [facility] [address] [id number] [address] [place] [address], [place] [address] 04 May, 2013 [facility] [address] [id number] [address] [place] [address], [place] [address] May, 2013 [facility] [address] [id number] [address] [place] [address], [place] [address] Apr, [facility] [address] [id number] [address] [place] [address], [place] [address] Apr, [facility] [address] [id number] [address] [place] [address], [place] [address] Apr, [facility] [address] [id number] [address] [place] [address], [place] [address] Apr, [facility] [address] [id number] [address] [place] [address], [place] [address] Apr, [facility] [address] [id number] [facility] [place] [address] Apr, [facility] [address] [id number] [facility] [place] [address] Apr, [facility] [address] [id number] [facility] [place] [address] Apr, [facility] [address] [id number] [address] [place] [address], [place] [address] Apr, [facility] [address] [id number] [address] [place] [address], [place] [address] Apr, [facility] [address] [id number] [address] [place] [address], [place] [address] Apr, [facility] [address] [id number] [address] [place] [address], [place] [address] Apr, [facility] [address] [id number] [address] [place] [address], [place] [address] Apr, [facility] [address] [id number] [address] [place] [address], [place] [address] Apr, [facility] [address] [id number] [address] [place] [address], [place] [address] Apr, [facility] [address] [id number] [address] [place] [address], [place] [address] Mar, [facility] [address] [id number] [address] [place] [address], [place] [address] Mar, [facility] [address] [id number] [address] [place] [address], [place] [address] Mar, [facility] [address] [id number] [address] [place] [address], [place] [address] Mar, [facility] [address] [id number] [address] [place] [address], [place] [address] Mar, [facility] [address] [id number] [address] [place] [address], [place] [address] Mar, 2013 [facility] [address] [id number] [address] [place] [address], [place] [address] Mar, 2013 [facility] [address] [id number] [address] [place] [address], [place] [address] Mar, 2013 [facility] [address] [id number] [address] [place] [address], [place] [address] Mar, 2013 [facility] [address] [id number] [address] [place] [address], [place] [address] Mar, 2013 [facility] [address] [id number] [address] [place] [address], [place] [address] Mar, 2013 [facility] [address] [id number] [address] [place] [address], [place] [address] Mar, 2013 [facility] [address] [id number] [address] [place] [address], [place] [address] Mar, 2013 [facility] [address] [id number] [address] [place] [address], [place] [address] Mar, 2013 [facility] [address] [id number] [address] [place] [address], [place] [address] Mar, 2013 [facility] [address] [id number] [address] [place] [address], [place] [address] Mar, [facility] [address] [id number] [address] [place] [address], [place] [address] Mar, [facility] [address] [id number] [address] [place] [address], [place] [address] Mar, [facility] [address] [id number] [address] [place] [address], [place] [address] Feb, [facility] [address] [id number] [address] [place] [address], [place] [address] Feb, [facility] [address] [id number] [address] [place] [address], [place] [address] Feb, [facility] [address] [id number] [facility] [place] [address] Feb, [facility] [address] [id number] [facility] [place] [address] Feb, [facility] [address] [id number] [facility] [place] [address] Feb, [facility] [address] [id number] [facility] [place] [address] Feb, [facility] [address] [id number] [facility] [place] [address] Feb, [facility] [address] [id number] [address] [place] [address], [place] [address] Feb, [facility] [address] [id number] [address] [place] [address], [place] [address] Feb, [facility] [address] [id number] [address] [place] [address], [place] [address] Feb, [facility] [address] [id number] [address] [place] [address], [place] [address] Feb, [facility] [address] [id number] [address] [place] [address], [place] [address] Feb, [facility] [address] [id number] [address] [place] [address], [place] [address] Feb, [facility] [address] [id number] [address] [place] [address], [place] [address] January, [facility] [address] [id number] [address] [place] [address], [place] [address] January, [facility] [address] [id number] [address] [place] [address], [place] [address] January, [facility] [address] [id number] [address] [place] [address], [place] [address] January, [facility] [address] [id number] [address] [place] [address], [place] [address] January, [facility] [address] [id number] [facility] [place] [address] January, [facility] [address] [id number] [address] [place] [address], [place] [address] January, [facility] [address] [id number] [address] [place] [address], [place] [address] January, [facility] [address] [id number] [address] [place] [address], [place] [address] January, [facility] [address] [id number] [address] [place] [address], [place] [address] January, [facility] [address] [id number] [address] [place] [address], [place] [address] January, [facility] [address] [id number] [address] [place] [address], [place] [address] January, [facility] [address] [id number] [address] [place] [address], [place] [address] January, [facility] [address] [id number] [address] [place] [address], [place] [address] January, [facility] [address] [id number] [address] [place] [address], [place] [address] Dec, [facility] [address] [id number] [address] [place] [address], [place] [address] Dec, [facility] [address] [id number] [address] [place] [address], [place] [address] Dec, [facility] [address] [id number] [address] [place] [address], [place] [address] Dec, [facility] [address] [id number] [address] [place] [address], [place] [address] Dec, [facility] [address] [id number] [address] [place] [address], [place] [address] Dec, [facility] [address] [id number] [facility] [place] [address] Dec, [facility] [address] [id number] [facility] [place] [address] Dec, [facility] [address] [id number] [facility] [place] [address] Dec, [facility] [address] [id number] [address] [place] [address], [place] [address] Dec, [facility] [address] [id number] [address] [place] [address], [place] [address] Nov, [facility] [address] [id number] [address] [place] [address], [place] [address] Nov, [facility] [address] [id number] [address] [place] [address], [place] [address] Nov, [facility] [address] [id number] [address] [place] [address], [place] [address] Nov, [facility] [address] [id number] [address] [place] [address], [place] [address] Nov, [facility] [address] [id number] [address] [place] [address], [place] [address] Nov, [facility] [address] [id number] [address] [place] [address], [place] [address] Nov, [facility] [address] [id number] [address] [place] [address], [place] [address] Nov, [facility] [address] [id number] [address] [place] [address], [place] [address] Nov, [facility] [address] [id number] [address] [place] [address], [place] [address] Nov, [facility] [address] [id number] [address] [place] [address], [place] [address] Oct, [facility] [address] [id number] [address] [place] [address], [place] [address] Oct, [facility] [address] [id number] [facility] [place] [address] Oct, [facility] [address] [id number] [address] [place] [address], [place] [address] Oct, [facility] [address] [id number] [address] [place] [address], [place] [address] Oct, [facility] [address] [id number] [address] [place] [address], [place] [address] Oct, [facility] [address] [id number] [address] [place] [address], [place] [address] Oct, [facility] [address] [id number] [address] [place] [address], [place] [address] Oct, [facility] [address] [id number] [address] [place] [address], [place] [address] Oct, [facility] [address] [id number] [address] [place] [address], [place] [address] Oct, [facility] [address] [id number] [address] [place] [address], [place] [address] Oct, [facility] [address] [id number] [address] [place] [address], [place] [address] Oct, [facility] [address] [id number] [address] [place] [address], [place] [address] Oct, [facility] [address] [id number] [address] [place] [address], [place] [address] Oct, [facility] [address] [id number] [address] [place] [address], [place] [address] Sep, [facility] [address] [id number] [address] [place] [address], [place] [address] Sep, [facility] [address] [id number] [address] [place] [address], [place] [address] Sep, [facility] [address] [id number] [address] [place] [address], [place] [address] 15 Sep, 2013 [facility] [address] [id number] [address] [place] [address], [place] [address] 14 Sep, 2013 [facility] [address] [id number] [address] [place] [address], [place] [address] 14 Sep, 2013 [facility] [address] [id number] [address] [place] [address], [place] [address] Sep, [facility] [address] [id number] [address] [place] [address], [place] [address] Sep, [facility] [address] [id number] [address] [place] [address], [place] [address] Sep, [facility] [address] [id number] [address] [place] [address], [place] [address] Sep, [facility] [address] [id number] [address] [place] [address], [place] [address] Aug, [facility] [address] [id number] [address] [place] [address], [place] [address] Aug, [facility] [address] [id number] [address] [place] [address], [place] [address] Jul, [facility] [address] [id number] [address] [place] [address], [place] [address] Jul, [facility] [address] [id number] [address] [place] [address], [place] [address] Jul, [facility] [address] [id number] [address] [place] [address], [place] [address] Jul, [facility] [address] [id number] [address] [place] [address], [place] [address] Jul, [facility] [address] [id number] [address] [place] [address], [place] [address] Jul, [facility] [address] [id number] [address] [place] [address] [address] Jul, [facility] [address] [id number] [address] [place] [address], [place] [address] Jul, [facility] [address] [id number] [address] [place] [address], [place] [address] Jul, [facility] [address] [id number] [address] [place] [address], [place] [address] Jul, [facility] [address] [id number] [address] [place] [address], [place] [address] Jul, [facility] [address] [id number] [address] [place] [address], [place] [address] Jul, [facility] [address] [id number] [address] [place] [address], [place] [address] Jul, [facility] [address] [id number] [address] [place] [address], [place] [address] Jul, [facility] [address] [id number] [address] [place] [address] Jul, [facility] [address] [id number] [address] [place] [address] Jul, [facility] [address] [id number] [address] [place] [address] Jul, [facility] [address] [id number] [address] [place] [address] Jul, [facility] [address] [id number] [address] [place] [address] Jul, [facility] [address] [id number] [address] [place] [address] Jun, [facility] [address] [id number] [address] [place] [address] Jun, [facility] [address] [id number] [address] [place] [address] Jun, [facility] [address] [id number] [address] [place] [address], [place] [address] 16 Jun, 2012 [facility] [address] [id number] [address] [place] [address], [place] [address] 16 Jun, 2012 [facility] [address] [id number] [address] [place] [address], [place] [address] 16 Jun, 2012 [facility] [address] [id number] [address] [place] [address], [place] [address] 10 Jun, 2012 [facility] [address] [id number] [address] [place] [address], [place] [address] 10 Jun, 2012 [facility] [address] [id number] [address] [place] [address], [place] [address] 09 Jun, 2012 [facility] [address] [id number] [address] [place] [address], [place] [address] 09 Jun, 2013 [facility] [address] [id number] [address] [place] [address], [place] [address] 01 Jun, 2012 [facility] [address] [id number] [address] [place] [address], [place] [address] 26 Sep, 2012 [facility] [address] [id number] [address] [place] [address], [place] [address] 25 Sep, 2012 [facility] [address] [id number] [address] [place] [address], [place] [address] 19 Sep, 2012 [facility] [address] [id number] [address] [place] [address], [place] [address] 17 Sep, 2012 [facility] [address] [id number] [address] [place] [address], [place] [address] 11 Sep, 2012 [facility] [address] [id number] [address] [place] [address], [place] [address] 10 Sep, 2012 [facility] [address] [id number] [address] [place] [address], [place] [address] 09 Sep, 2012 [facility] [address] [id number] [address] [place] [address], [place] [address] May, [facility] [address] [id number] [address] [place] [address], [place] [address] Apr, [facility] [address] [id number] [address] [place] [address], [place] [address] Apr, [facility] [address] [id number] [address] [place] [address], [place] [address] Apr, [facility] [address] [id number] [address] [place] [address], [place] [address] Apr, [facility] [address] [id number] [address] [place] [address], [place] [address] Apr, [facility] [address] [id number] [address] [place] [address], [place] [address] Mar, [facility] [address] [id number] [address] [place] [address], [place] [address] Mar, [facility] [address] [id number] [address] [place] [address], [place] [address] Mar, [facility] [address] [id number] [address] [place] [address], [place] [address] Mar, [facility] [address] [id number] [address] [place] [address], [place] [address] Mar, [facility] [address] [id number] [address] [place] [address], [place] [address] Mar, [facility] [address] [id number] [address] [place] [address], [place] [address] Mar, [facility] [address] [id number] [address] [place] [address], [place] [address] Mar, [facility] [address] [id number] [address] [place] [address], [place] [address] Feb, [facility] [address] [id number] [address] [place] [address], [place] [address] Feb, [facility] [address] [id number] [address] [place] [address], [place] [address] January, [facility] [address] [id number] [address] [place] [address], [place] [address] January, [facility] [address] [id number] [address] [place] [address], [place] [address] Dec, [facility] [address] [id number] [address] [place] [address], [place] [address] Dec, [facility] [address] [id number] [address] [place] [address], [place] [address] Nov, [facility] [address] [id number] [address] [place] [address], [place] [address] Nov, [facility] [address] [id number] [address] [place] [address], [place] [address] Nov, [facility] [address] [id number] [address] [place] [address], [place] [address] Nov, [facility] [address] [id number] [address] [place] [address], [place] [address] Oct, [facility] [address] [id number] [address] [place] [address], [place] [address] Oct, [facility] [address] [id number] [address] [place] [address], [place] [address] Oct, [facility] [address] [id number] [address] [place] [address], [place] [address] Oct, [facility] [address] [id number] [address] [place] [address], [place] [address] 16 Oct, 2012 [facility] [address] [id number] [address] [place] [address], [place] [address] 14 Oct, 2012 [facility] [address] [id number] [address] [place] [address], [place] [address] 08 Oct, 2012 [facility] [address] [id number] [address] [place] [address] 07 Oct, 2012 [facility] [address] [id number] [address] [place] [address], [place] [address] Oct, [facility] [address] [id number] [address] [place] [address], [place] [address] Sep, [facility] [address] [id number] [address] [place] [address], [place] [address] Sep, [facility] [address] [id number] [address] [place] [address], [place] [address] Sep, [facility] [address] [id number] [address] [place] [address], [place] [address] Sep, [facility] [address] [id number] [address] [place] [address], [place] [address] Sep, [facility] [address] [id number] [address] [place] [address], [place] [address] Sep, [facility] [address] [id number] [address] [place] [address], [place] [address] Sep, [facility] [address] [id number] [address] [place] [address], [place] [address] Sep, [facility] [address] [id number] [address] [place] [address], [place] [address] Aug, [facility] [address] [id number] [address] [place] [address], [place] [address] Aug, [facility] [address] [id number] [address] [place] [address], [place] [address] Aug, [facility] [address] [id number] [address] [place] [address], [place] [address] Aug, [facility] [address] [id number] [address] [place] [address], [place] [address] Aug, [facility] [address] [id number] [address] [place] [address], [place] [address] Aug, [facility] [address] [id number] [address] [place] [address] Aug, [facility] [address] [id number] [address] [place] [address], [place] [address] Aug, [facility] [address] [id number] [address] [place] [address] Jul, [facility] [address] [id number] [address] [place] [address], [place] [address] Jul, [facility] [address] [id number] [address] [place] [id number] Jul, [facility] [address] [id number] [address] [place] [address], [place] [address] Jul, [facility] [address] [id number] [address] [place] [address], [place] [address] Jul, [facility] [address] [id number] [address] [place] [address], [place] [address] Jul, [facility] [address] [id number] [address] [place] [address], [place] [address] Jun, [facility] [address] [id number] [address] [place] [id number] Jun, [facility] [address] [id number] [address] [place] [id number] Jun, [facility] [address] [id number] [address] [place] [id number] Jun, [facility] [address] [id number] [address] [place] [id number] Jun, [facility] [address] [id number] [address] [place] [address], [place] [address] Jun, [facility] [address] [id number] [address] [place] [id number] Jun, [facility] [address] [id number] [address] [place] [id number] Jun, [facility] [address] [id number] [address] [place] [address], [place] [address] 10 Jun, 2012 [facility] [address] [id number] [address] [place] [address], [place] [address] 26 May, 2012 [facility] [address] [id number] [address] [place] [address], [place] [address] 24 May, 2012 [facility] [address] [id number] [address] [place] [address], [place] [address] 18 May, 2012 [facility] [address] [id number] [address] [place] [address], [place] [address] 30 Apr, 2012 [facility] [address] [id number] [address] [place] [address], [place] [address] Apr, [facility] [address] [id number] [address] [place] [address], [place] [address] Apr, [facility] [address] [id number] [address] [place] [address], [place] [address] Apr, [facility] [address] [id number] [address] [place] [address], [place] [address] Apr, [facility] [address] [id number] [address] [place] [address], [place] [address] Apr, [facility] [address] [id number] [address] [place] [address], [place] [address] Mar, [facility] [address] [id number] [address] [place] [address], [place] [address] Mar, [facility] [address] [id number] [address] [place] [address], [place] [address] Mar, [facility] [address] [id number] [address] [place] [address], [place] [address] Mar, [facility] [address] [id number] [address] [place] [address], [place] [address] Feb, [facility] [address] [id number] [address] [place] [address], [place] [address] Feb, [facility] [address] [id number] [address] [place] [address], [place] [address] Feb, [facility] [address] [id number] [address] [place] [address], [place] [address] Feb, [facility] [address] [id number] [address] [place] [address], [place] [address] Feb, [facility] [address] [id number] [address] [place] [address], [place] [address] January, [facility] [address] [id number] [address] [place] [address], [place] [address] January, [facility] [address] [id number] [address] [place] [address], [place] [address] January, [facility] [address] [id number] [address] [place] [address], [place] [address] January, [facility] [address] [id number] [address] [place] [address], [place] [address] January, [facility] [address] [id number] [address] [place] [address], [place] [address] January, [facility] [address] [id number] [address] [place] [address], [place] [address] Dec, [facility] [address] [id number] [address] [place] [address], [place] [address] Dec, [facility] [address] [id number] [address] [place] [address], [place] [address] Dec, [facility] [address] [id number] [address] [place] [address], [place] [address] Dec, [facility] [address] [id number] [address] [place] [address], [place] [address] Dec, [facility] [address] [id number] [address] [place] [address], [place] [address] Nov, [facility] [address] [id number] [address] [place] [address], [place] [address] 14 Nov, 2011 [facility] [address] [id number] [address] [place] [address], [place] [address] 12 Nov, 2011 [facility] [address] [id number] [address] [place] [address], [place] [address] 07 Nov, 2011 [facility] [address] [id number] [address] [place] [address], [place] [address] 29 Oct, 2011 [facility] [address] [id number] [address] [place] [address], [place] [address] 28 Oct, 2011 [facility] [address] [id number] [address] [place] [address], [place] [address] 24 Oct, 2011 [facility] [address] [id number] [address] [place] [address], [place] [address] 13 Oct, 2011 [facility] [address] [id number] [address] [place] [address], [place] [address] 08 Oct, 2011 [facility] [address] [id number] [address] [place] [address], [place] [address] Sep, [facility] [address] [id number] [address] [place] [address], [place] [address] Sep, [facility] [address] [id number] [address] [place] [address], [place] [address] Sep, [facility] [address] [id number] [address] [place] [address], [place] [address] Sep, [facility] [address] [id number] [address] [place] [address], [place] [address] Sep, [facility] [address] [id number] [address] [place] [address], [place] [address] Sep, [facility] [address] [id number] [address] [place] [address], [place] [address] Aug, [facility] [address] [address] [id number] [address] [place] [address], [place] [address] Aug, [facility] [address] [id number] [address] [place] [address], [place] [address] Aug, [facility] [address] [id number] [address] [place] [address], [place] [address] Jul, [facility] [address] [id number] [address] [place] [address], [place] [address] Jul, [facility] [address] [id number] [address] [place] [address], [place] [address] Jul, [facility] [address] [id number] [address] [place] [address], [place] [address] Jul, [facility] [address] [id number] [address] [place] [address], [place] [address] Jun, [facility] [address] [id number] [address] [place] [address], [place] [address] Jun, [facility] [address] [id number] [address] [place] [address], [place] [address] Jun, [facility] [address] [id number] [address] [place] [address], [place] [address] Jun, [facility] [address] [id number] [address] [place] [address], [place] [address] Jun, [facility] [address] [id number] [address] [place] [address], [place] [address] Jun, [facility] [address] [id number] [address] [place] [id number] Mar, [facility] [address] [id number] [address] [place] [address], [place] [address] Dec, [facility] [address] [id number] [address] [place] [address], [place] [address] Dec, [facility] [address] [id number] [address] [place] [address], [place] [address] Nov, [facility] [address] [id number] [address] [place] [id number] 16 Nov, 2010 [facility] [address] [id number] [address] [place] [address], [place] [address] 10 Sep, 2010 [facility] [address] [id number] [address] [place] [address], [place] [address] 31 Aug, 2010 [facility] [address] [id number] [address] [place] [address], [place] [address] 29 Aug, 2010 [facility] [address] [id number] [address] [place] [address], [place] [address] 29 Aug, 2010 [facility] [address] [id number] [address] [place] [address], [place] [address] 29 Aug, 2010 [facility] [address] [id number] [address] [place] [address], [place] [address] 27 Aug, 2010 [facility] [address] [id number] [address] [place] [address], [place] [address] 14 Aug, 2010 [facility] [address] [id number] [address] [place] [address], [place] [address] 08 Aug, 2010 [facility] [address] [id number] [address] [place] [address], [place] [address] 08 Aug, 2010 [facility] [address] [id number] [address] [place] [address], [place] [address] 07 Aug, 2010 [facility] [address] [id number] [address] [place] [address], [place] [address] Aug, [facility] [address] [id number] [address] [place] [address], [place] [address] Aug, [facility] [address] [id number] [address] [place] [address], [place] [address] Aug, [facility] [address] [id number] [address] [place] [address], [place] [address] Jul, [facility] [address] [id number] [address] [place] [address], [place] [address] 30 Jul, 2010 [facility] [address] [id number] [address] [place] [address], [place] [address] 30 Jul, 2010 [facility] [address] [id number] [address] [place] [address], [place] [address] 17 Jul, 2010 [facility] [address] [id number] [address] [place] [address], [place] [address] 08 Jul, 2010 [facility] [address] [id number] [address] [place] [address], [place] [address] Jul, [facility] [address] [id number] [address] [place] [address], [place] [address] 24 Jun, 2010 [facility] [address] [id number] [address] [place] [address], [place] [address] Jun, [facility] [address] [id number] [address] [place] [address], [place] [address] Jun, [facility] [address] [id number] [address] [place] [address], [place] [address] Jun, [facility] [address] [id number] [address] [place] [address], [place] [address] 16 Apr, 2010 [facility] [address] [id number] [address] [place] [address], [place] [address] Mar, [facility] [address] [id number] [address] [place] [address], [place] [address] Feb, [facility] [address] [id number] [address] [place] [address], [place] [address] January, [facility] [address] [id number] [address] [place] [address], [place] [address] 15 Dec, 2009 [facility] [address] [id number] [address] [place] [address], [place] [address] Nov, [facility] [address] [id number] [address] [place] [address], [place] [address] Aug, [facility] [address] [id number] [address] [place] [address], [place] [address] Aug, [facility] [address] [id number] [address] [place] [id number] Aug, [facility] [address] [id number] [address] [place] [id number] Jul, [facility] [address] [id number] [address] [place] [id number] Jul, [facility] [address] [id number] [address] [place] [id number] Jul, [facility] [address] [id number] [address] [place] [id number] Jun, [facility] [address] [id number] [address] [place] [id number] Jun, [facility] [address] [id number] [address] [place] [id number] Jun, [facility] [address] [id number] [address] [place] [id number] Jun, [facility] [address] [id number] [address] [place] [id number] Jun, [facility] [address] [id number] [address] [place] [id number] Jun, [facility] [address] [id number] [address] [place] [id number] Apr, [facility] [address] [id number] [address] [place] [id number] Apr, [facility] [address] [id number] [address] [place] [id number] Feb, [facility] [address] [id number] [address] [place] [id number] January, [facility] [address] [id number] [address] [place] [id number] Dec, IMMUNIZATIONS No Known Immunizations SOCIAL HISTORY [...] obesity Medical History skin cancer-basal cell R rastafari (removed ) Medical History Arthritis Medical History [...] EGD ([facility]) 2009 Surgical History colonoscopy 2009 ([facility]), 2013 ([place] ) Surgical History heart cath: CAD w/ [...] to urinate 09/16/15 Hospitalization History [facility] health ea rly 1999' Hospitalization History hyperkalemia 10/2017 Hospitalization History fluid in lung
--- OUTSIDE RECORDS SUMMARY | 2020-03-01 16:38 | XMS REPORT ---
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 Name Role Phone NOEMI WASHBURN Unavailable PROBLEMS Type Condition ICD9-CM Code ZDP85-TZ Code Onset Dates Condition S tatus SNOMED Code Problem Chronic pain G89.29 Active 3801298 1 Problem Reactive airway disease J45.909 Active 040113915120 Problem Leukocytosis D72.829 Active 6037977 06 Problem Insomnia, unspecified type G47.00 Act sharon 982218983 Problem Bipolar I disorder, most recent episode (or curr ent) mixed, moderate F31.62 Active 66294104 Problem Morbid obesity E66.01 Active 68004 6002 Problem Anxiety F41.9 Active 72066981 Problem Mild cognitive impairment G31.84 Acti ve 877226280 Problem Benign prostatic hyperplasia with lower urinary tract symptoms, unspecified morphology N40.1 Active 42151 6007 Problem Other iron deficiency anemia D50.8 A ctive 82385288 Problem Eustachian tube dysfunction, unspecified laterality H69.80 Active 66754333 Problem Diabetes E11.9 Active 51665248 Problem DM neuro manif type II E11.49 Active 00879641 Problem Anemia of chronic illness D63.8 Acti ve 841567904 Problem Bilateral primary osteoarthritis of knee M17.0 Active 973146421 Problem 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 Active 516614387 Problem Eye exam abnormal R93.8 Active 16 2754579 Problem Retinal edema H35.81 Active 382538 6 Problem Lymphocytosis D72.820 Active 103165 09 Problem Bipolar disorder, in partial remission, most rec ent episode depressed F31.75 Active 49449709 Problem Hypokalemia E87.6 Active 18951019 Problem Falling R29.6 Active 866624613 Problem Pressure ulcer of other site, stage 3 L89.893 Active 441271280 Problem Primary osteoarthritis of right knee M17.11 Active 698553533909626 Problem Cough R05 Active 35482980 Problem Pure hypercholesterolemia E78.00 Acti ve 164512934 Problem Dysuria R30.0 Active 93749917 Problem Skin cancer C44.90 Active 63165006 7 Problem Bipolar disorder F31.9 Active 137 65936 Problem Chronic diastolic (congestive) heart failure I50.3 2 Active 778917514 Problem Bipolar I disorder, most recent episode depressed, moderat e F31.32 Active 749618521 Problem Diabetic polyneuropathy associated with type 2 d iabetes mellitus E11.42 Active 45411790 Problem Gastroesophageal reflux disease without esophagitis K21.9 Active 473047905 Problem Essential hypertension I10 Active 31799298 Problem Polyneuropathy associated with underlying disease G63 Active 263644568 Problem Psychophysiological insomnia F51.04 A ctive 044240565 Problem Type 2 diabetes mellitus with diabetic neuropathy, uns pecified E11.40 Active 80592724 Problem Chronic lymphocytic leukemia C91.10 A ctive 25335516 Problem 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 Active 861479436 Problem Mood disorder F39 Active 456372 05 ALLERGIES No Information ENCOUNTERS Encounter Location Date Diagnosis [facility] [address] [facility] [id number] [address] [place] [address] Dec, [facility] [address] [facility] [id number] [address] [place] [address] Dec, [facility] [address] [facility] [id number] [address] [place] [id number] Nov, Gastroesophageal reflux dise ase without esophagitis K21.9 [facility] [address] [facility] [id number] [address] [place] [id number] Nov, Chronic pain G89.29 [facility] [address] [facility] [id number] [address] [place] [address] Nov, Bipolar I disorder, most rec ent episode depressed, moderate F31.32 ; Anxiety F41.9 and Mild cognitive impairment G31.84 [facility] [address] [facility] [id number] [address] [place] [id number] Nov, [facility] [address] [id number] [address] [place] [address] Nov, Syncope, unspecified syncope type R55 [facility] [address] [id number] [address] [place] [address] Nov, Mood disorder F39 [facility] [address] [id number] [address] [place] [address] Oct, Chronic pain G89.29 [facility] [address] [id number] [address] [place] [id number] Oct, [facility] [address] [id number] [address] [place] [id number] Oct, Mood disorder F39 [facility] [address] [id number] [address] [place] [phone] Oct, [facility] [address] [id number] [address] [place] [id number] Oct, Bipolar disorder, in partial remission, most recent episode depressed F31.75 and Mild cognitive impairment G31.84 [facility] [address] [id number] [address] [place] [address] Oct, Mood disorder F39 [facility] [address] [id number] [address] [place] [id number] Sep, [facility] [address] [id number] [address] [place] [id number] Sep, Mood disorder F39 [facility] [address] [id number] [address] [place] [id number] Sep, Bipolar disorder, in partial remission, most recent episode depressed F31.75 and Mild cognitive impairment G31.84 [facility] [address] [id number] [address] [place] [id number] Sep, Mood disorder F39 [facility] [address] [id number] [address] [place] [address] Sep, [facility] [address] [id number] [address] [place] [id number] Sep, Mood disorder F39 [facility] [address] [id number] [address] [place] [id number] Sep, [facility] [address] [id number] [address] [place] [id number] Aug, Mood disorder F39 [facility] [address] [id number] [address] [place] [id number] Aug, [facility] [address] [id number] [address] [place] [id number] Aug, [facility] [address] [id number] [address] [place] [id number] Aug, [facility] [address] [id number] [address] [place] [address] Aug, [facility] [address] [id number] [address] [place] [address] Aug, [facility] [address] [id number] [address] [place] [phone] Aug, [facility] [address] [id number] [address] [place] [phone] Aug, [facility] [address] [id number] [address] [place] [address] Aug, Essential hypertension I10 [facility] [address] [id number] [address] [place] [id number] Aug, Bipolar disorder, in partial remission, most recent episode depressed F31.75 and Mild cognitive impairment G31.84 [facility] [address] [id number] [address] [place] [address] Aug, Mood disorder F39 [facility] [address] [id number] [address] [place] [address] Aug, [facility] [address] [id number] [address] [place] [phone] Aug, Bipolar disorder, in partial remission, most recent episode depressed F31.75 and Mild cognitive impairment G31.84 [facility] [address] [id number] [address] [place] [id number] Jul, Bipolar disorder, in partial remission, most recent episode depressed F31.75 and Mild cognitive impairment G31.84 [facility] [address] [id number] [address] [place] [id number] Jul, Psychophysiological insomnia F51.04 [facility] [address] [id number] [address] [place] [id number] Jul, [facility] [address] [id number] [address] [place] [id number] Jul, [facility] [address] [id number] [address] [place] [id number] Jul, [facility] [address] [id number] [address] [place] [id number] Jul, [facility] [address] [id number] [address] [place] [phone] Jul, [facility] [address] [id number] [address] [place] [address] Jul, [facility] [address] [id number] [address] [place] [id number] Jul, Bipolar disorder, in partial remission, most recent episode depressed F31.75 and Mild cognitive impairment G31.84 [facility] [address] [id number] [address] [place] [address] Jul, Chronic pain G89.29 ; Diabet es E11.9 ; Essential hypertension I10 ; Ill feeling R68.89 ; Local infection of the skin and subcutaneous tissue, unspecified L08.9 and Other injury of unspecified body region, initial encounter T14.8XXA [facility] [address] [id number] [address] [place] [id number] Jun, Bipolar disorder, in partial remission, most recent episode depressed F31.75 and Mild cognitive impairment G31.84 [facility] [address] [id number] [address] [place] [id number] Jun, [facility] [address] [id number] [address] [place] [id number] Jun, Bipolar disorder, in partial remission, most recent episode depressed F31.75 and Mild cognitive impairment G31.84 [facility] [address] [id number] [address] [place] [address] Jun, Psychophysiological insomnia F51.04 [facility] [address] [id number] [address] [place] [address] Jun, Psychophysiological insomnia F51.04 ; Chronic pain G89.29 ; Bipolar I disorder, most recent episode (or current) mixed, moderate F31.62 ; 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 ; Polyneuropathy associated with underlying disease G63 ; Type 2 diabetes mellitus with diabetic neuropathy, unspecified E11.40 ; 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 and Hyperglycemia R73.9 [facility] [address] [id number] [address] [place] [id number] Jun, Bipolar disorder, in partial remission, most recent episode depressed F31.75 and Mild cognitive impairment G31.84 [facility] [address] [id number] [address] [place] [id number] Jun, [facility] [address] [id number] [address] [place] [id number] Jun, Bipolar disorder F31.9 [facility] [address] [id number] [address] [place] [address] May, Bipolar disorder, in partial remission, most recent episode depressed F31.75 and Mild cognitive impairment G31.84 [facility] [address] [id number] [address] [place] [id number] May, [facility] [address] [id number] [address] [place] [id number] Apr, Chronic pain G89.29 and Bipo lar disorder F31.9 [facility] [address] [facility] [id number] [address] [place] [address] Mar, Bipolar disorder F31.9 and C hronic pain G89.29 [facility] [address] [id number] [address] [place] [id number] Feb, Bipolar disorder F31.9 [facility] [address] [facility] [id number] [address] [place] [address] Feb, Cellulitis of right upper ex tremity L03.113 and Skin abrasion T14.8XXA [facility] [address] [facility] [id number] [address] [place] [id number] Feb, Bipolar disorder, in partial remission, most recent episode depressed F31.75 and Mild cognitive impairment G31.84 [place] [address] [facility] [id number] [address] [place] [address] Feb, Chronic pain G89.29 [facility] [address] [facility] [id number] [address] [place] [id number] Feb, Bipolar disorder, in partial remission, most recent episode depressed F31.75 and Mild cognitive impairment G31.84 [facility] [address] [facility] [id number] [address] [place] [id number] January, Bipolar disorder, in partial remission, most recent episode depressed F31.75 and Mild cognitive impairment G31.84 [facility] [address] [facility] [id number] [address] [place] [address] January, Chronic pain G89.29 and Bipo lar disorder F31.9 [facility] [address] [facility] [id number] [address] [place] [id number] January, Bipolar disorder, in partial remission, most recent episode depressed F31.75 and Mild cognitive impairment G31.84 [facility] [address] [facility] [id number] [address] [place] [phone] Dec, [facility] [address] [id number] [address] [place] [id number] Dec, Chronic pain G89.29 and Bipo lar disorder F31.9 [facility] [address] [id number] [address] [place] [address] Dec, Edema of both lower extremit ies R60.0 [facility] [address] [id number] [address] [place] [address] Dec, Bipolar disorder F31.9 [facility] [address] [facility] [id number] [address] [place] [address] Dec, Bipolar disorder, in partial remission, most recent episode depressed F31.75 and Mild cognitive impairment G31.84 [place] [address] [facility] [id number] [address] [place] [address] Nov, [facility] [address] [id number] [address] [place] [id number] Nov, Chronic pain G89.29 [facility] [address] [facility] [id number] [address] [place] [id number] Nov, Bipolar disorder, in partial remission, most recent episode depressed F31.75 and Mild cognitive impairment G31.84 [facility] [address] [facility] [id number] [address] [place] [id number] Nov, Bipolar disorder F31.9 [place] [address] [facility] [id number] [address] [place] [phone] 04 Nov, 2018 Encounter for Medicare annua [...] unspecified morphology N40.1 and Essential hypertension I10 [place] [address] [address] Oct, Chronic pain G89.29 [place] [address] [place] [id number] [place] [address] Oct, Diabetes E11.9 [place] [address] [address] Oct, Bipolar I disorder, most rec ent episode (or current) mixed, moderate F31.62 and Mild cognitive impairment G31.84 [place] [address] [address] Oct, Bipolar I disorder, most rec ent episode (or current) mixed, moderate F31.62 and Mild cognitive impairment G31.84 [place] [address] [address] Sep, Bipolar I disorder, most rec ent episode (or current) mixed, moderate F31.62 and Mild cognitive impairment G31.84 [place] [address] [phone] Sep, [address] [address] Sep, Diabetes E11.9 ; Hypoxia R09 .02 ; Hyperglycemia R73.9 ; Therapeutic drug monitoring Z51.81 ; BMI 50.0-59.9, adult Z68.43 and Skin cancer C44.90 [place] [address] [place] [id number] [address] [place] [address] Sep, Chronic pain G89.29 [place] [id number] [place] [phone] Sep, Bipolar I disorder, most rec ent episode (or current) mixed, moderate F31.62 [place] [id number] [place] [phone] Sep, [place] [address] [id number] [address] [place] [id number] Sep, [facility] [address] [id number] [address] [place] [address] Aug, Chronic pain G89.29 [facility] [address] [id number] [address] [place] [id number] Aug, Bipolar I disorder, most rec ent episode (or current) mixed, moderate F31.62 [facility] [address] [id number] [address] [place] [id number] Aug, Bipolar I disorder, most rec ent episode (or current) mixed, moderate F31.62 and Mild cognitive impairment G31.84 [facility] [address] [id number] [address] [place] [address] Jul, [facility] [address] [id number] [address] [place] [id number] Jul, Chronic pain G89.29 [facility] [address] [id number] [address] [place] [id number] Jul, Bipolar I disorder, most rec ent episode (or current) mixed, moderate F31.62 and Mild cognitive impairment G31.84 [facility] [address] [id number] [address] [place] [id number] Jul, Bipolar I disorder, most rec ent episode (or current) mixed, moderate F31.62 and MCI (mild cognitive impairment) G31.84 [facility] [address] [id number] [address] [place] [id number] Jul, [facility] [address] [id number] [address] [place] [address] Jul, [facility] [address] [id number] [address] [place] [id number] Jul, Bipolar I disorder, most rec ent episode (or current) mixed, moderate F31.62 [facility] [address] [id number] [address] [place] [address] Jul, Chronic pain G89.29 [facility] [address] [facility] [id number] [address] [place] [id number] Jun, Bipolar I disorder, most rec ent episode (or current) mixed, moderate F31.62 [facility] [address] [facility] [id number] [address] [place] [id number] Jun, Pre-procedure lab exam Z01.8 12 [facility] [address] [facility] [id number] [address] [place] [id number] Jun, [facility] [address] [id number] [place] [id number] Jun, [facility] [address] [facility] [id number] [address] [place] [address] Jun, [facility] [address] [place] [id number] [address] [place] [address] Jun, Forgetfulness R68.89 ; Pre-s yncope R55 ; Localized edema R60.0 ; Other iron deficiency anemia D50.8 and BMI 50.0-59.9, adult Z68.43 [facility] [address] [facility] [id number] [address] [place] [address] Jun, Chronic pain G89.29 [facility] [address] [facility] [id number] [address] [place] [id number] Jun, Chronic pain G89.29 [facility] [address] [facility] [id number] [address] [place] [id number] Jun, Bipolar I disorder, most rec ent episode (or current) mixed, moderate F31.62 [facility] [address] [facility] [id number] [address] [place] [address] May, Chronic pain G89.29 [facility] [address] [facility] [id number] [address] [place] [id number] Apr, [facility] [address] [address] Apr, Chronic pain G89.29 [place] [address] [address] Apr, Primary osteoarthritis of ri ght knee M17.11 [place] [address] [address] Mar, [place] [address] [address] Mar, BMI 50.0-59.9, adult Z68.43 and Bipolar disorder, in partial remission, most recent episode depressed F31.75 [place] [address] [address] Mar, Diabetes E11.9 ; Pure hyperc holesterolemia E78.00 ; Essential hypertension I10 ; Nausea with vomiting, unspecified R11.2 and Headache, unspecified headache type R51 [place] [address] [address] Mar, Bipolar I disorder, most rec ent episode (or current) mixed, moderate F31.62 [place] [address] [address] Mar, Bipolar I disorder, most rec ent episode (or current) mixed, moderate F31.62 [place] [address] [address] Mar, Chronic pain G89.29 [place] [address] [address] Mar, Bipolar I disorder, most rec ent episode (or current) mixed, moderate F31.62 [place] [address] [address] Feb, Bipolar I disorder, most rec ent episode (or current) mixed, moderate F31.62 [place] [address] [address] Feb, Chronic pain G89.29 [facility] [address] [id number] [address] [place] [id number] 06 Feb, 2018 Decubitus ulcer of right josselin t, stage 3 L89.893 and BMI 50.0-59.9, adult Z68.43 [facility] [address] [id number] [address] [place] [id number] Feb, Bipolar I disorder, most rec ent episode (or current) mixed, moderate F31.62 [facility] [address] [id number] [address] [place] [address] Feb, [facility] [address] [id number] [address] [place] [address] January, [facility] [address] [id number] [address] [place] [address] January, Chronic pain G89.29 [facility] [address] [id number] [address] [place] [id number] January, Bipolar I disorder, most rec ent episode (or current) mixed, moderate F31.62 [facility] [address] [facility] [id number] [address] [place] [id number] January, Bipolar I disorder, most rec ent episode (or current) mixed, moderate F31.62 [facility] [address] [id number] [address] [place] [id number] Dec, Bipolar I disorder, most rec ent episode (or current) mixed, moderate F31.62 and BMI 50.0-59.9, adult Z68.43 [facility] [address] [id number] [address] [place] [id number] Dec, Bipolar I disorder, most rec ent episode (or current) mixed, moderate F31.62 [facility] [address] [id number] [address] [place] [address] Dec, Chronic pain G89.29 [facility] [address] [id number] [address] [place] [id number] Dec, DM neuro manif type II E11.4 9 ; Right flank pain R10.9 ; intermediate 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 Z79.891 ; Encounter for medication monitoring Z51.81 and BMI 50.0-59.9, adult Z68.43 [facility] [address] [place] [id number] [address] [place] [address] Dec, Bipolar I disorder, most rec ent episode (or current) mixed, moderate F31.62 [place] [address] [place] [id number] [address] [place] [id number] Nov, Bipolar I disorder, most rec ent episode (or current) mixed, moderate F31.62 [place] [address] [place] [id number] [address] [place] [address] Nov, Chronic pain G89.29 [place] [address] [place] [id number] [place] [address] Nov, Bipolar I disorder, most rec ent episode (or current) mixed, moderate F31.62 [place] [address] [place] [id number] [place] [id number] Nov, Hypokalemia E87.6 [place] [address] [place] [id number] [place] [id number] Nov, Bipolar I disorder, most rec ent episode (or current) mixed, moderate F31.62 [place] [address] [place] [id number] [place] [id number] Oct, Chronic pain G89.29 [place] [address] [place] [id number] [place] [id number] Oct, BMI 50.0-59.9, adult Z68.43 and Bipolar I disorder, most recent episode (or current) mixed, moderate F31.62 [place] [address] [place] [id number] [place] [id number] Oct, Bipolar I disorder, most rec ent episode (or current) mixed, moderate F31.62 [facility] [address] [facility] [id number] [address] [place] [phone] Oct, [facility] [facility] [address] [facility] [id number] [address] [place] [id number] Oct, Hypokalemia E87.6 [facility] [address] [facility] [id number] [address] [place] [id number] Oct, DM neuro manif type II E11.4 9 [facility] [address] [facility] [id number] [address] [place] [id number] Oct, Bipolar I disorder, most rec ent episode (or current) mixed, moderate F31.62 [facility] [address] [place] [id number] [address] [place] [id number] Oct, Bipolar I disorder, most rec ent episode (or current) mixed, moderate F31.62 [facility] [address] [place] [id number] [address] [place] [id number] 14 Oct, 2017 Hyperkalemia E87.5 ; Falling R29.6 ; BMI 50.0-59.9, adult Z68.43 and Acute left ankle pain M25.572 [facility] [address] [place] [id number] [address] [place] [id number] 08 Oct, 2017 DM neuro manif type II E11.4 9 [facility] [address] [facility] [id number] [address] [place] [id number] Oct, [facility] [address] [facility] [id number] [address] [place] [id number] Sep, Chronic pain G89.29 [facility] [address] [place] [id number] [address] [place] [id number] Sep, [facility] [address] [place] [id number] [address] [place] [id number] Sep, Bilateral primary osteoarthr itis of knee M17.0 [facility] [address] [place] [id number] [address] [place] [id number] 18 Sep, 2017 Generalized edema R60.1 [place] [address] [place] [id number] [address] [place] [id number] 16 Sep, 2017 Bipolar I disorder, most rec ent episode (or current) mixed, moderate F31.62 [place] [address] [place] [id number] [address] [place] [id number] 15 Sep, 2017 Hypoxia R09.02 ; Other hyper volemia E87.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 ; Anemia of chronic illness D63.8 and BMI 50.0- 59.9, adult Z68.43 [place] [address] [place] [id number] [address] [place] [id number] Sep, [place] [address] [place] [id number] [place] [id number] Sep, Bipolar I disorder, most rec ent episode (or current) mixed, moderate F31.62 [place] [address] [place] [id number] [address] [place] [id number] Aug, Chronic pain G89.29 [place] [address] [place] [id number] [address] [place] [id number] Aug, Generalized edema R60.1 [place] [address] [facility] [id number] [address] [place] [id number] 18 Aug, 2017 [place] [address] [facility] [id number] [address] [place] [id number] Aug, [place] [address] [place] [id number] [address] [place] [id number] 14 Aug, 2017 Bipolar I disorder, most rec ent episode (or current) mixed, moderate F31.62 [place] [address] [place] [id number] [address] [place] [id number] 07 Aug, 2017 Bipolar I disorder, most rec ent episode (or current) mixed, moderate F31.62 [facility] [address] [facility] [id number] [address] [place] [id number] Aug, Chronic pain G89.29 [facility] [address] [facility] [id number] [address] [place] [id number] Jul, Bipolar I disorder, most rec ent episode (or current) mixed, moderate F31.62 [facility] [address] [facility] [id number] [address] [place] [id number] Jul, Bipolar I disorder, most rec ent episode (or current) mixed, moderate F31.62 and BMI 60.0-69.9, adult Z68.44 [place] [address] [facility] [id number] [address] [place] [id number] Jul, Bipolar I disorder, most rec ent episode (or current) mixed, moderate F31.62 [place] [address] [place] [id number] [address] [place] [id number] Jul, Chronic pain G89.29 [facility] [address] [place] [id number] [address] [place] [id number] Jul, Bipolar I disorder, most rec ent episode (or current) mixed, moderate F31.62 [facility] [address] [facility] [id number] [address] [place] [phone] Jun, Polyneuropathy associated wi th underlying disease G63 and Diabetes E11.9 [facility] [address] [facility] [id number] [address] [place] [id number] Jun, Bipolar I disorder, most rec ent episode (or current) mixed, moderate F31.62 [facility] [address] [facility] [id number] [address] [place] [id number] Jun, Chronic pain G89.29 [facility] [address] [facility] [id number] [address] [place] [id number] May, Bipolar I disorder, most rec ent episode (or current) mixed, moderate F31.62 [place] [address] [place] [id number] [address] [place] [id number] 21 May, 2017 Bipolar I disorder, most rec ent episode (or current) mixed, moderate F31.62 [facility] [address] [id number] [address] [place] [id number] 20 May, 2017 Diabetic polyneuropathy asso ciated with type 2 diabetes mellitus E11.42 [facility] [address] [id number] [address] [place] [id number] 18 May, 2017 Bipolar I disorder, most rec ent episode (or current) mixed, moderate F31.62 [facility] [address] [id number] [address] [place] [id number] 13 May, 2017 Bipolar I disorder, most rec ent episode (or current) mixed, moderate F31.62 [facility] [address] [id number] [address] [place] [id number] May, Chronic pain G89.29 [facility] [address] [id number] [address] [place] [id number] Apr, Bipolar I disorder, most rec ent episode (or current) mixed, moderate F31.62 [facility] [address] [id number] [address] [place] [id number] Apr, [facility] [address] [id number] [address] [place] [id number] Apr, Chronic pain G89.29 and DM n euro manif type II E11.49 [facility] [address] [id number] [address] [place] [id number] Apr, [facility] [address] [id number] [address] [place] [id number] Apr, Bipolar I disorder, most rec ent episode (or current) mixed, moderate F31.62 [facility] [address] [id number] [address] [place] [id number] 14 Apr, 2017 Chronic pain G89.29 [facility] [address] [id number] [address] [place] [id number] Apr, Iliotibial band syndrome, le ft M76.32 [facility] [address] [facility] [id number] [address] [place] [phone] Apr, Bipolar I disorder, most rec ent episode (or current) mixed, moderate F31.62 [facility] [address] [facility] [id number] [address] [place] [id number] Mar, Bipolar I disorder, most rec ent episode (or current) mixed, moderate F31.62 [place] [address] [facility] [id number] [address] [place] [id number] Mar, Bipolar I disorder, most rec ent episode (or current) mixed, moderate F31.62 [facility] [address] [facility] [id number] [address] [place] [id number] Mar, [facility] [address] [place] [id number] [address] [place] [id number] Mar, Bipolar I disorder, most rec ent episode (or current) mixed, moderate F31.62 [place] [address] [facility] [id number] [address] [place] [id number] Mar, Chronic pain G89.29 [facility] [address] [facility] [id number] [address] [place] [id number] Mar, Bipolar I disorder, most rec ent episode (or current) mixed, moderate F31.62 [place] [address] [facility] [id number] [address] [place] [id number] Mar, Bipolar I disorder, most rec ent episode (or current) mixed, moderate F31.62 [place] [address] [facility] [id number] [address] [place] [id number] Mar, Acute pain of left knee M25. 562 ; Left hip pain M25.552 ; Generalized edema R60.1 and Tongue swelling R22.0 [facility] [address] [facility] [id number] [address] [place] [id number] Mar, [facility] [address] [id number] [address] [place] [id number] Feb, Chronic pain G89.29 [facility] [address] [id number] [address] [place] [id number] Feb, Diabetes E11.9 [facility] [address] [facility] [id number] [address] [place] [id number] January, Chronic pain G89.29 [facility] [address] [id number] [address] [place] [phone] January, [facility] [address] [id number] [address] [place] [id number] January, Bipolar I disorder, most rec ent episode (or current) mixed, moderate F31.62 [facility] [address] [facility] [id number] [address] [place] [id number] Dec, Bipolar I disorder, most rec ent episode (or current) mixed, moderate F31.62 [facility] [address] [facility] [id number] [address] [place] [id number] Dec, Chronic pain G89.29 [facility] [address] [id number] [address] [place] [id number] Dec, Bipolar I disorder, most rec ent episode (or current) mixed, moderate F31.62 [facility] [address] [facility] [id number] [address] [place] [id number] Dec, Diabetes E11.9 ; Essential h ypertension I10 ; Chronic pain G89.29 and Morbid obesity E66.01 [facility] [address] [id number] [address] [place] [id number] Dec, [facility] [address] [facility] [id number] [address] [place] [id number] Dec, Bipolar I disorder, most rec ent episode (or current) mixed, moderate F31.62 [facility] [address] [facility] [id number] [address] [place] [id number] Dec, Bipolar I disorder, most rec ent episode (or current) mixed, moderate F31.62 [facility] [address] [id number] [address] [place] [id number] Nov, Chronic pain G89.29 [facility] [address] [id number] [address] [place] [id number] Nov, Bipolar I disorder, most rec ent episode (or current) mixed, moderate F31.62 [facility] [address] [id number] [address] [place] [id number] Nov, [facility] [address] [id number] [address] [place] [id number] Nov, Bipolar I disorder, most rec ent episode (or current) mixed, moderate F31.62 [facility] [address] [id number] [address] [place] [id number] Nov, Bipolar I disorder, most rec ent episode (or current) mixed, moderate F31.62 [facility] [address] [id number] [address] [place] [phone] Nov, [facility] [address] [id number] [address] [place] [id number] Nov, [facility] [address] [id number] [address] [place] [id number] Nov, [facility] [address] [id number] [address] [place] [id number] Oct, Chronic pain G89.29 [facility] [address] [id number] [address] [place] [id number] Oct, Bipolar I disorder, most rec ent episode (or current) mixed, moderate F31.62 [facility] [address] [id number] [address] [place] [id number] Oct, [facility] [address] [facility] [id number] [address] [place] [id number] Oct, Chronic pain G89.29 ; Diabet es E11.9 ; Anxiety F41.9 and 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 [facility] [address] [id number] [address] [place] [id number] 10 Oct, 2016 [facility] [address] [facility] [id number] [address] [place] [id number] 06 Oct, 2016 Diabetes E11.9 [facility] [address] [id number] [address] [place] [id number] Oct, Bipolar I disorder, most rec ent episode (or current) mixed, moderate F31.62 [facility] [address] [facility] [id number] [address] [place] [phone] Sep, Chronic pain G89.29 [facility] [address] [facility] [id number] [address] [place] [phone] Sep, Chronic pain G89.29 [facility] [address] [facility] [id number] [address] [place] [id number] Aug, Chronic pain G89.29 [facility] [address] [facility] [id number] [address] [place] [phone] Jul, [facility] [address] [facility] [id number] [address] [place] [id number] Jul, Diabetes E11.9 [facility] [address] [facility] [id number] [address] [place] [id number] Jul, Chronic pain G89.29 [facility] [address] [facility] [id number] [address] [place] [id number] Jul, Bipolar I disorder, most rec ent episode (or current) mixed, moderate F31.62 [facility] [address] [facility] [id number] [address] [place] [id number] Jun, Bipolar I disorder, most rec ent episode (or current) mixed, moderate F31.62 [facility] [address] [facility] [id number] [address] [place] [id number] Jun, [facility] [address] [facility] [id number] [address] [place] [id number] Jun, Bipolar I disorder, most rec ent episode (or current) mixed, moderate F31.62 [facility] [address] [facility] [id number] [address] [place] [id number] 30 May, 2016 Insomnia, unspecified type G 47.00 [place] [address] [facility] [id number] [address] [place] [id number] May, Bipolar I disorder, most rec ent episode (or current) mixed, moderate F31.62 [place] [address] [facility] [id number] [address] [place] [id number] 14 May, 2016 [place] [address] [facility] [id number] [address] [place] [id number] May, Bipolar I disorder, most rec ent episode (or current) mixed, moderate F31.62 [place] [address] [facility] [id number] [address] [place] [id number] May, Diabetes E11.9 and Essential hypertension I10 [place] [address] [facility] [id number] [address] [place] [id number] Apr, Chronic pain G89.29 [place] [address] [place] [id number] [address] [place] [id number] Apr, Bipolar I disorder, most rec ent episode (or current) mixed, moderate F31.62 [place] [address] [facility] [id number] [address] [place] [id number] Apr, [facility] [address] [facility] [id number] [address] [place] [id number] Apr, [facility] [address] [facility] [id number] [address] [place] [id number] Mar, Chronic pain G89.29 ; Headac he, unspecified headache type R51 ; Neuropathy G62.9 ; Pain of right hip joint M25.551 and Essential hypertension I10 [facility] [address] [facility] [id number] [address] [place] [phone] Mar, Chronic pain G89.29 [facility] [address] [facility] [id number] [address] [place] [id number] Mar, Bipolar I disorder, most rec ent episode (or current) mixed, moderate F31.62 [facility] [address] [facility] [id number] [address] [place] [id number] Feb, Bipolar I disorder, most rec ent episode (or current) mixed, moderate F31.62 and Insomnia, unspecified type G47.00 [facility] [address] [facility] [id number] [address] [place] [id number] Feb, Chronic pain G89.29 [facility] [address] [place] [id number] [address] [place] [id number] Feb, Bipolar I disorder, most rec ent episode (or current) mixed, moderate F31.62 [facility] [address] [facility] [id number] [address] [place] [id number] January, Bipolar I disorder, most rec ent episode (or current) mixed, moderate F31.62 [facility] [address] [facility] [id number] [address] [place] [address] January, Chronic pain G89.29 [facility] [address] [facility] [id number] [address] [place] [id number] January, Chronic pain G89.29 and Esse ntial hypertension I10 [facility] [address] [facility] [id number] [address] [place] [id number] January, Bipolar I disorder, most rec ent episode (or current) mixed, moderate F31.62 [facility] [address] [facility] [id number] [address] [place] [id number] Dec, [facility] [address] [facility] [id number] [address] [place] [id number] Dec, [facility] [address] [place] [id number] [address] [place] [id number] Dec, [facility] [address] [id number] Dec, [facility] [address] [place] [id number] [address] [place] [id number] Nov, Reactive airway disease J45. 909 [facility] [address] [phone] Nov, [facility] [address] [address] Nov, [facility] [address] [phone] Nov, [facility] [address] [id number] Nov, [facility] [address] [id number] Nov, Onychomycosis B35.1 ; Hammer toe M20.40 ; Allison or callus L84 and DM neuro manif type II E11.49 [facility] [address] [place] [id number] [address] [place] [address] Nov, Chronic pain G89.29 ; Leukoc ytosis D72.829 and Diabetes E11.9 [facility] [address] [place] [id number] [address] [place] [id number] Nov, [facility] [address] [place] [id number] [address] [place] [id number] Oct, Bronchitis J40 [facility] [address] [address] Oct, [facility] [address] [place] [id number] [address] [place] [address] Oct, [facility] [address] [id number] Oct, Mastoiditis, unspecified lat erality H70.90 and Type 2 diabetes mellitus with complication E11.8 [facility] [address] [place] [id number] [address] [place] [id number] Sep, [facility] [address] [place] [id number] [address] [place] [id number] Sep, Dysuria R30.0 ; Cough R05 ; Benign prostatic hyperplasia with lower urinary tract symptoms, unspecified morphology N40.1 ; Hypokalemia E87.6 and Eustachian tube dysfunction, unspecified laterality H69.80 [place] [address] [place] [id number] [address] [place] [id number] Sep, Moderate mixed bipolar I dis order F31.62 [place] [address] [place] [id number] [place] [id number] Sep, Hypokalemia E87.6 [place] [address] [place] [id number] [address] [place] [id number] Sep, [facility] [address] [place] [id number] [address] [place] [id number] Sep, Upper respiratory tract infe ction, unspecified type J06.9 [place] [address] [place] [id number] [address] [place] [id number] Aug, [place] [address] [place] [id number] [address] [place] [phone] Aug, Dysuria R30.0 [facility] [address] [place] [id number] [address] [place] [id number] Aug, [facility] [address] [place] [id number] [address] [place] [id number] Jul, [facility] [address] [place] [id number] [address] [place] [id number] Jul, [facility] [address] [place] [id number] [address] [place] [id number] Jul, [facility] [address] [facility] [id number] [address] [place] [id number] Jul, [facility] [address] [id number] [address] [place] [id number] Jun, [facility] [address] [facility] [id number] [address] [place] [id number] Jun, [facility] [address] [id number] [address] [place] [id number] Jun, [facility] [address] [facility] [id number] [address] [place] [phone] May, [facility] [address] [facility] [id number] [address] [place] [phone] May, Bipolar I disorder, most rec ent episode (or current) mixed, moderate 296.62 [facility] [address] [facility] [id number] [address] [place] [phone] May, [facility] [address] [id number] [address] [place] [id number] May, Bipolar I disorder, most rec ent episode (or current) mixed, moderate 296.62 and Major depressive disorder, recurrent episode, severe, specified as with psychotic behavior 296.34 [facility] [address] [facility] [id number] [address] [place] [phone] May, Bipolar I disorder, most rec ent episode (or current) mixed, moderate 296.62 [facility] [address] [facility] [id number] [address] [place] [phone] May, [facility] [address] [facility] [id number] [address] [place] [id number] Apr, [facility] [address] [facility] [id number] [address] [place] [phone] Apr, [facility] [address] [facility] [id number] [address] [place] [id number] Apr, Unspecified disorder of kidn ey and ureter 593.9 and Diabetes mellitus type 2, uncontrolled 250.02 [facility] [address] [facility] [id number] [address] [place] [phone] Apr, [facility] [address] [facility] [id number] [address] [place] [id number] Apr, [facility] [address] [facility] [id number] [address] [place] [phone] Apr, [facility] [address] [place] [id number] [address] [place] [phone] Apr, [facility] [address] [facility] [id number] [address] [place] [phone] Apr, Diabetes mellitus type II, u ncontrolled 250.02 [facility] [address] [place] [id number] [address] [place] [phone] Apr, [facility] [address] [place] [id number] [address] [place] [phone] Mar, [facility] [address] [place] [id number] [address] [place] [phone] Mar, [facility] [address] [place] [id number] [address] [place] [phone] Mar, [facility] [address] [place] [id number] [address] [place] [phone] Mar, Major depressive disorder, r ecurrent episode, severe, specified as with psychotic behavior 296.34 and Bipolar I disorder, most recent episode (or current) mixed, moderate 296.62 [facility] [address] [id number] [address] [place] [address] Mar, Diabetes 250.00 ; Anuria 788 .5 ; Nausea and vomiting 787.01 and Diarrhea 787.91 [facility] [address] [facility] [id number] [address] [place] [address] Mar, Diabetes 250.00 [facility] [id number] [place] [address] Mar, [facility] [address] [facility] [id number] [address] [place] [address] Mar, Diabetes 250.00 [facility] [address] [facility] [id number] [address] [place] [address] Mar, [facility] [address] [id number] [address] [place] [address] Mar, [facility] [address] [id number] [address] [place] [address] Mar, [facility] [address] [id number] [address] [place] [address] Mar, [facility] [address] [id number] [address] [place] [address] Mar, Bipolar I disorder, most rec ent episode (or current) mixed, moderate 296.62 and Major depressive disorder, recurrent episode, severe, specified as with psychotic behavior 296.34 [facility] [address] [id number] [address] [place] [id number] Mar, Magnesium deficiency 275.2 ; Hypokalemia 276.8 ; Nausea & vomiting 787.01 and Diabetes mellitus type 2, uncontrolled 250.02 [facility] [address] [id number] [address] [place] [address] Feb, [facility] [address] [id number] [address] [place] [id number] Feb, Bipolar I disorder, most rec ent episode (or current) mixed, moderate 296.62 [facility] [address] [id number] [address] [place] [address] Feb, Nausea and vomiting 787.01 ; Left elbow pain 719.42 ; Anuria 788.5 and Diabetes 250.00 [facility] [address] [id number] [address] [place] [address] Feb, [facility] [address] [id number] [address] [place] [address] Feb, Hypopotassemia 276.8 and Hyp okalemia 276.8 [facility] [address] [id number] [address] [place] [address] Feb, Hypopotassemia 276.8 and Hyp okalemia 276.8 [facility] [address] [id number] [address] [place] [address] Feb, Seborrheic keratoses 702.19 [facility] [address] [id number] [address] [place] [id number] Feb, Hypopotassemia 276.8 and Low magnesium levels 275.2 [facility] [address] [id number] [address] [place] [address] January, [facility] [address] [id number] [address] [place] [address] January, [facility] [address] [id number] [address] [place] [address] January, [facility] [address] [id number] [address] [place] [id number] January, Scalp lesion 709.9 [facility] [address] [id number] [address] [place] [address] January, [facility] [address] [id number] [address] [place] [id number] Dec, Tear of medial cartilage or meniscus of knee, current 836.0 and 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 [facility] [address] [id number] [address] [place] [address] Dec, [facility] [address] [id number] [address] [place] [id number] Dec, [facility] [address] [id number] [address] [place] [id number] Dec, Squamous cell carcinoma, 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 [facility] [address] [id number] [address] [place] [address], [place] [address] 14 Dec, 2014 [facility] [address] [id number] [address] [place] [address], [place] [address] 13 Dec, 2014 [facility] [address] [id number] [address] [place] [address], [place] [address] Nov, [facility] [address] [id number] [address] [place] [address], [place] [address] Nov, [facility] [address] [id number] [address] [place] [address], [place] [address] Nov, [facility] [address] [id number] [address] [place] [address], [place] [address] Nov, [facility] [address] [id number] [address] [place] [address], [place] [address] Nov, [facility] [address] [id number] [address] [place] [address], [place] [address] Nov, [facility] [address] [id number] [address] [place] [address], [place] [address] Nov, [facility] [address] [id number] [address] [place] [address], [place] [address] Nov, [facility] [address] [id number] [address] [place] [address], [place] [address] Nov, [facility] [address] [id number] [address] [place] [address], [place] [address] Nov, [facility] [address] [id number] [address] [place] [address], [place] [address] Nov, [facility] [address] [id number] [address] [place] [address], [place] [address] Nov, [facility] [address] [id number] [address] [place] [address], [place] [address] Oct, [facility] [address] [id number] [address] [place] [address], [place] [address] Oct, [facility] [address] [id number] [address] [place] [address], [place] [address] Oct, 2014 [facility] [address] [id number] [address] [place] [address], [place] [address] Oct, 2014 [facility] [address] [id number] [address] [place] [address], [place] [address] Oct, 2014 [facility] [address] [id number] [address] [place] [address], [place] [address] Oct, 2014 [facility] [address] [id number] [address] [place] [address], [place] [address] Oct, [facility] [address] [id number] [address] [place] [address], [place] [address] Oct, [facility] [address] [id number] [address] [place] [address], [place] [address] Oct, [facility] [address] [id number] [address] [place] [address], [place] [address] Sep, [facility] [address] [id number] [address] [place] [address], [place] [address] Sep, [facility] [address] [id number] [address] [place] [address], [place] [address] Sep, [facility] [address] [id number] [address] [place] [address] Sep, [facility] [address] [id number] [address] [place] [address] Sep, [facility] [address] [id number] [address] [place] [address], [place] [address] Sep, [facility] [address] [id number] [address] [place] [address], [place] [address] Sep, [facility] [address] [id number] [address] [place] [address], [place] [address] Sep, [facility] [address] [id number] [address] [place] [address], [place] [address] 14 Sep, 2014 [facility] [address] [id number] [address] [place] [address], [place] [address] 14 Sep, 2014 [facility] [address] [id number] [address] [place] [address], [place] [address] 08 Sep, 2014 [facility] [address] [id number] [address] [place] [address], [place] [address] 08 Sep, 2014 [facility] [address] [id number] [address] [place] [address], [place] [address] Sep, [facility] [address] [id number] [address] [place] [address], [place] [address] Sep, [facility] [address] [id number] [address] [place] [address], [place] [address] Sep, [facility] [address] [id number] [address] [place] [address], [place] [address] Sep, [facility] [address] [id number] [address] [place] [address], [place] [address] 31 Aug, 2014 [facility] [address] [id number] [address] [place] [address], [place] [address] 31 Aug, 2014 [facility] [address] [id number] [address] [place] [address], [place] [address] 31 Aug, 2014 [facility] [address] [id number] [address] [place] [address], [place] [address] 31 Aug, 2014 [facility] [address] [id number] [address] [place] [address], [place] [address] 31 Aug, 2014 [facility] [address] [id number] [address] [place] [address], [place] [address] 31 Aug, [address] [facility] [address] [id number] [address] [place] [address], [place] [address] 17 Aug, [address] [facility] [address] [id number] [address] [place] [address], [place] [address] Aug, [facility] [address] [id number] [facility] [place] [address] Aug, [facility] [address] [id number] [facility] [place] [address] Aug, [facility] [address] [id number] [facility] [place] [address] Aug, [facility] [address] [place] [id number] Aug, [facility] [address] [id number] [facility] [place] [address] Aug, [facility] [address] [id number] [facility] [place] [address] Aug, [facility] [address] [id number] [facility] [place] [address] Aug, [facility] [address] [id number] [address] [place] [address], [place] [address] Aug, [facility] [address] [id number] [address] [place] [address], [place] [address] Aug, [facility] [address] [id number] [address] [place] [address], [place] [address] Aug, [facility] [address] [id number] [facility] [place] [address] Aug, [facility] [address] [id number] [address] [place] [address], [place] [address] Aug, [facility] [address] [id number] [address] [place] [address], [place] [address] Aug, [facility] [address] [id number] [address] [place] [address], [place] [address] Aug, [facility] [address] [id number] [facility] [place] [address] Aug, [facility] [address] [id number] [address] [place] [address] [address] Aug, [facility] [address] [id number] [address] [place] [address], [place] [address] Aug, [facility] [address] [id number] [address] [place] [address], [place] [address] Aug, [facility] [address] [id number] [address] [place] [address], [place] [address] Aug, [facility] [address] [id number] [address] [place] [address], [place] [address] Aug, [facility] [address] [id number] [address] [place] [address], [place] [address] Aug, [facility] [address] [id number] [address] [place] [address], [place] [address] Aug, [facility] [address] [id number] [address] [place] [address], [place] [address] Jul, [facility] [address] [id number] [address] [place] [address], [place] [address] Jul, [facility] [address] [id number] [address] [place] [address], [place] [address] Jul, [facility] [address] [id number] [address] [place] [address], [place] [address] Jul, [facility] [address] [id number] [address] [place] [address], [place] [address] Jul, [facility] [address] [id number] [address] [place] [address], [place] [address] Jul, [facility] [address] [id number] [address] [place] [address], [place] [address] Jul, [facility] [address] [id number] [address] [place] [address], [place] [address] Jul, [facility] [address] [id number] [address] [place] [address], [place] [address] Jul, [facility] [address] [id number] [address] [place] [address], [place] [address] Jul, [facility] [address] [id number] [address] [place] [address], [place] [address] Jun, [facility] [address] [id number] [address] [place] [address], [place] [address] Jun, [facility] [address] [id number] [address] [place] [address], [place] [address] Jun, [facility] [address] [id number] [address] [place] [address], [place] [address] Jun, [facility] [address] [id number] [address] [place] [address], [place] [address] Jun, [facility] [address] [id number] [address] [place] [address], [place] [address] Jun, [facility] [address] [id number] [address] [place] [address], [place] [address] Jun, [facility] [address] [id number] [address] [place] [address], [place] [address] Jun, [facility] [address] [id number] [address] [place] [address], [place] [address] Jun, [facility] [address] [id number] [address] [place] [address], [place] [address] Jun, [facility] [address] [id number] [address] [place] [address], [place] [address] 29 May, 2013 [facility] [address] [id number] [address] [place] [address], [place] [address] 29 Sep, 2013 [facility] [address] [id number] [address] [place] [address], [place] [address] 26 Sep, 2013 [facility] [address] [id number] [address] [place] [address], [place] [address] 26 Sep, 2013 [facility] [address] [id number] [address] [place] [address], [place] [address] 17 Sep, 2013 [facility] [address] [id number] [facility] [place] [address] 17 May, 2013 [facility] [address] [id number] [address] [place] [address], [place] [address] 15 May, 2013 [facility] [address] [id number] [address] [place] [address], [place] [address] 15 May, 2013 [facility] [address] [id number] [address] [place] [address], [place] [address] 15 May, 2013 [facility] [address] [id number] [address] [place] [address], [place] [address] 15 May, 2013 [facility] [address] [id number] [address] [place] [address], [place] [address] 10 May, 2013 [facility] [address] [id number] [address] [place] [address], [place] [address] 10 May, 2013 [facility] [address] [id number] [address] [place] [address], [place] [address] 09 May, 2013 [facility] [address] [id number] [address] [place] [address], [place] [address] 09 May, 2013 [facility] [address] [id number] [address] [place] [address], [place] [address] 04 May, 2013 [facility] [address] [id number] [address] [place] [address], [place] [address] May, 2013 [facility] [address] [id number] [address] [place] [address], [place] [address] Apr, [facility] [address] [id number] [address] [place] [address], [place] [address] Apr, [facility] [address] [id number] [address] [place] [address], [place] [address] Apr, [facility] [address] [id number] [address] [place] [address], [place] [address] Apr, [facility] [address] [id number] [address] [place] [address], [place] [address] Apr, [facility] [address] [id number] [facility] [place] [address] Apr, [facility] [address] [id number] [address] [place] [address], [place] [address] Apr, [facility] [address] [id number] [address] [place] [address], [place] [address] Apr, [facility] [address] [id number] [address] [place] [address], [place] [address] Apr, [facility] [address] [id number] [address] [place] [address], [place] [address] Apr, [facility] [address] [id number] [address] [place] [address], [place] [address] Apr, [facility] [address] [id number] [address] [place] [address], [place] [address] Apr, [facility] [address] [id number] [address] [place] [address], [place] [address] Apr, [facility] [address] [id number] [address] [place] [address], [place] [address] Apr, [facility] [address] [id number] [address] [place] [address], [place] [address] Apr, [facility] [address] [id number] [address] [place] [address], [place] [address] Mar, [facility] [address] [id number] [address] [place] [address], [place] [address] Mar, [facility] [address] [id number] [address] [place] [address], [place] [address] Mar, [facility] [address] [id number] [address] [place] [address], [place] [address] Mar, [facility] [address] [id number] [address] [place] [address], [place] [address] Mar, [facility] [address] [id number] [facility] [place] [address] Mar, 2013 [facility] [address] [id number] [address] [place] [address], [place] [address] Mar, 2013 [facility] [address] [id number] [address] [place] [address], [place] [address] Mar, 2013 [facility] [address] [id number] [address] [place] [address], [place] [address] Mar, 2013 [facility] [address] [id number] [address] [place] [address], [place] [address] Mar, 2013 [facility] [address] [id number] [address] [place] [address], [place] [address] Mar, 2013 [facility] [address] [id number] [address] [place] [address], [place] [address] Mar, 2013 [facility] [address] [id number] [address] [place] [address], [place] [address] Mar, 2013 [facility] [address] [id number] [address] [place] [address], [place] [address] Mar, 2013 [facility] [address] [id number] [address] [place] [address], [place] [address] Mar, 2013 [facility] [address] [id number] [address] [place] [address], [place] [address] Mar, 2013 [facility] [address] [id number] [address] [place] [address], [place] [address] Mar, 2013 [facility] [address] [id number] [address] [place] [address], [place] [address] Mar, [facility] [address] [id number] [address] [place] [address], [place] [address] Feb, [facility] [address] [id number] [address] [place] [address], [place] [address] Feb, [facility] [address] [id number] [address] [place] [address], [place] [address] Feb, [facility] [address] [id number] [facility] [place] [address] Feb, [facility] [address] [id number] [facility] [place] [address] Feb, [facility] [address] [id number] [facility] [place] [address] Feb, [facility] [address] [id number] [address] [place] [address], [place] [address] Feb, [facility] [address] [id number] [address] [place] [address], [place] [address] Feb, [facility] [address] [id number] [address] [place] [address], [place] [address] Feb, [facility] [address] [id number] [address] [place] [address], [place] [address] Feb, [facility] [address] [id number] [address] [place] [address], [place] [address] Feb, [facility] [address] [id number] [address] [place] [address], [place] [address] Feb, [facility] [address] [id number] [address] [place] [address], [place] [address] Feb, [facility] [address] [id number] [address] [place] [address], [place] [address] Feb, [facility] [address] [id number] [address] [place] [address], [place] [address] January, [facility] [address] [id number] [address] [place] [address], [place] [address] January, [facility] [address] [id number] [address] [place] [address], [place] [address] January, [facility] [address] [id number] [address] [place] [address], [place] [address] January, [facility] [address] [id number] [address] [place] [address], [place] [address] January, [facility] [address] [id number] [facility] [place] [address] January, [facility] [address] [id number] [address] [place] [address], [place] [address] January, [facility] [address] [id number] [address] [place] [address], [place] [address] January, [facility] [address] [id number] [address] [place] [address], [place] [address] January, [facility] [address] [id number] [address] [place] [address], [place] [address] January, [facility] [address] [id number] [address] [place] [address], [place] [address] January, [facility] [address] [id number] [address] [place] [address], [place] [address] January, [facility] [address] [id number] [address] [place] [address], [place] [address] January, [facility] [address] [id number] [address] [place] [address], [place] [address] January, [facility] [address] [id number] [address] [place] [address], [place] [address] Dec, [facility] [address] [id number] [address] [place] [address], [place] [address] Dec, [facility] [address] [id number] [address] [place] [address], [place] [address] Dec, [facility] [address] [id number] [address] [place] [address], [place] [address] Dec, [facility] [address] [id number] [address] [place] [address], [place] [address] Dec, [facility] [address] [id number] [address] [place] [address], [place] [address] Dec, [facility] [address] [id number] [facility] [place] [address] Dec, [facility] [address] [id number] [facility] [place] [address] Dec, [facility] [address] [id number] [facility] [place] [address] Dec, [facility] [address] [id number] [facility] [place] [address] Dec, [facility] [address] [id number] [facility] [place] [address] Nov, [facility] [address] [id number] [address] [place] [address], [place] [address] Nov, [facility] [address] [id number] [address] [place] [address], [place] [address] Nov, [facility] [address] [id number] [address] [place] [address], [place] [address] Nov, [facility] [address] [id number] [address] [place] [address], [place] [address] Nov, [facility] [address] [id number] [address] [place] [address], [place] [address] Nov, [facility] [address] [id number] [address] [place] [address], [place] [address] Nov, [facility] [address] [id number] [address] [place] [address], [place] [address] Nov, [facility] [address] [id number] [address] [place] [address], [place] [address] Nov, [facility] [address] [id number] [address] [place] [address], [place] [address] Nov, [facility] [address] [id number] [address] [place] [address], [place] [address] Oct, [facility] [address] [id number] [address] [place] [address], [place] [address] Oct, [facility] [address] [id number] [address] [place] [address], [place] [address] Oct, [facility] [address] [id number] [address] [place] [address], [place] [address] Oct, [facility] [address] [id number] [address] [place] [address], [place] [address] Oct, [facility] [address] [id number] [address] [place] [address], [place] [address] Oct, [facility] [address] [id number] [address] [place] [address], [place] [address] Oct, [facility] [address] [id number] [address] [place] [address], [place] [address] Oct, [facility] [address] [id number] [address] [place] [address], [place] [address] Oct, [facility] [address] [id number] [address] [place] [address], [place] [address] Oct, [facility] [address] [id number] [address] [place] [address], [place] [address] Oct, [facility] [address] [id number] [address] [place] [address], [place] [address] Oct, [facility] [address] [id number] [address] [place] [address], [place] [address] Oct, [facility] [address] [id number] [address] [place] [address], [place] [address] Oct, [facility] [address] [id number] [address] [place] [address], [place] [address] Sep, [facility] [address] [id number] [address] [place] [address], [place] [address] Sep, [facility] [address] [id number] [address] [place] [address], [place] [address] Sep, [facility] [address] [id number] [address] [place] [address], [place] [address] 15 Sep, 2013 [facility] [address] [id number] [address] [place] [address], [place] [address] 14 Sep, [address] [facility] [address] [id number] [address] [place] [address], [place] [address] 14 Sep, 2013 [facility] [address] [id number] [address] [place] [address], [place] [address] Sep, [facility] [address] [id number] [address] [place] [address], [place] [address] Sep, [facility] [address] [id number] [address] [place] [address], [place] [address] Sep, [facility] [address] [id number] [address] [place] [address], [place] [address] Sep, [facility] [address] [id number] [address] [place] [address], [place] [address] Aug, [facility] [address] [id number] [address] [place] [address], [place] [address] Aug, [facility] [address] [id number] [address] [place] [address], [place] [address] Jul, [facility] [address] [id number] [address] [place] [address], [place] [address] Jul, [facility] [address] [id number] [address] [place] [address], [place] [address] Jul, [facility] [address] [id number] [address] [place] [address], [place] [address] Jul, [facility] [address] [id number] [address] [place] [address], [place] [address] Jul, [facility] [address] [id number] [address] [place] [address], [place] [address] Jul, [facility] [address] [id number] [address] [place] [address] Jul, [facility] [address] [id number] [address] [place] [address], [place] [address] Jul, [facility] [address] [id number] [address] [place] [address] Jul, [facility] [address] [id number] [address] [place] [address] Jul, [facility] [address] [id number] [address] [place] [address] Jul, [facility] [address] [id number] [address] [place] [address], [place] [address] Jul, [facility] [address] [id number] [address] [place] [address] Jul, [facility] [address] [id number] [address] [place] [address] Jul, [facility] [address] [id number] [address] [place] [address] Jul, [facility] [address] [id number] [address] [place] [address] Jul, [facility] [address] [id number] [address] [place] [address] Jul, [facility] [address] [id number] [address] [place] [address] Jul, [facility] [address] [id number] [address] [place] [address] Jul, [facility] [address] [id number] [address] [place] [address] Jun, [facility] [address] [id number] [address] [place] [address] Jun, [facility] [address] [id number] [address] [place] [address] Jun, [facility] [address] [id number] [address] [place] [address], [place] [address] 16 Jun, 2012 [facility] [address] [id number] [address] [place] [address], [place] [address] 16 Jun, 2012 [facility] [address] [id number] [address] [place] [address], [place] [address] 16 Jun, 2012 [facility] [address] [id number] [address] [place] [address], [place] [address] 10 Jun, 2012 [facility] [address] [id number] [address] [place] [address], [place] [address] 10 Jun, 2012 [facility] [address] [id number] [address] [place] [address], [place] [address] 09 Jun, 2012 [facility] [address] [id number] [address] [place] [address], [place] [address] 09 Jun, 2012 [facility] [address] [id number] [address] [place] [address], [place] [address] Jun, 2012 [facility] [address] [id number] [address] [place] [address], [place] [address] 26 Sep, 2012 [facility] [address] [id number] [address] [place] [address], [place] [address] 25 Sep, [address] [facility] [address] [id number] [address] [place] [address], [place] [address] 19 Sep, 2012 [facility] [address] [id number] [address] [place] [address], [place] [address] 17 Sep, 2012 [facility] [address] [id number] [address] [place] [address], [place] [address] 11 Sep, 2012 [facility] [address] [id number] [address] [place] [address], [place] [address] 10 Sep, 2012 [facility] [address] [id number] [address] [place] [address], [place] [address] 09 Sep, 2012 [facility] [address] [id number] [address] [place] [address], [place] [address] May, [facility] [address] [id number] [address] [place] [address], [place] [address] Apr, [facility] [address] [id number] [address] [place] [address], [place] [address] Apr, [facility] [address] [id number] [address] [place] [address], [place] [address] Apr, [facility] [address] [id number] [address] [place] [address], [place] [address] Apr, [facility] [address] [id number] [address] [place] [address], [place] [address] Apr, [facility] [address] [id number] [address] [place] [address], [place] [address] Mar, [facility] [address] [id number] [address] [place] [address], [place] [address] Mar, [facility] [address] [id number] [address] [place] [address], [place] [address] Mar, [facility] [address] [id number] [address] [place] [address], [place] [address] Mar, [facility] [address] [id number] [address] [place] [address], [place] [address] Mar, [facility] [address] [id number] [address] [place] [address], [place] [address] Mar, [facility] [address] [id number] [address] [place] [address], [place] [address] Mar, [facility] [address] [id number] [address] [place] [address], [place] [address] Mar, [facility] [address] [id number] [address] [place] [address], [place] [address] Feb, [facility] [address] [id number] [address] [place] [address], [place] [address] Feb, [facility] [address] [id number] [address] [place] [address], [place] [address] January, [facility] [address] [id number] [address] [place] [address], [place] [address] January, [facility] [address] [id number] [address] [place] [address], [place] [address] Dec, [facility] [address] [id number] [address] [place] [address], [place] [address] Dec, [facility] [address] [id number] [address] [place] [address], [place] [address] Nov, [facility] [address] [id number] [address] [place] [address], [place] [address] Nov, [facility] [address] [id number] [address] [place] [address], [place] [address] Nov, [facility] [address] [id number] [address] [place] [address], [place] [address] Nov, [facility] [address] [id number] [address] [place] [address], [place] [address] Oct, [facility] [address] [id number] [address] [place] [address], [place] [address] Oct, [facility] [address] [id number] [address] [place] [address], [place] [address] Oct, [facility] [address] [id number] [address] [place] [address], [place] [address] 26 Oct, 2012 [facility] [address] [id number] [address] [place] [address], [place] [address] 16 Oct, 2012 [facility] [address] [id number] [address] [place] [address], [place] [address] 14 Oct, 2012 [facility] [address] [id number] [address] [place] [address], [place] [address] 08 Oct, 2012 [facility] [address] [id number] [address] [place] [address], [place] [address] 07 Oct, 2012 [facility] [address] [id number] [address] [place] [address], [place] [address] 03 Oct, 2012 [facility] [address] [id number] [address] [place] [address], [place] [address] Sep, [facility] [address] [id number] [address] [place] [address], [place] [address] Sep, [facility] [address] [id number] [address] [place] [address], [place] [address] Sep, [facility] [address] [id number] [address] [place] [address], [place] [address] Sep, [facility] [address] [id number] [address] [place] [address], [place] [address] Sep, [facility] [address] [id number] [address] [place] [address], [place] [address] Sep, [facility] [address] [id number] [address] [place] [address], [place] [address] Sep, [facility] [address] [id number] [address] [place] [address], [place] [address] Sep, [facility] [address] [id number] [address] [place] [address], [place] [address] Aug, [facility] [address] [id number] [address] [place] [address], [place] [address] Aug, [facility] [address] [id number] [address] [place] [address], [place] [address] Aug, [facility] [address] [id number] [address] [place] [address], [place] [address] Aug, [facility] [address] [id number] [address] [place] [address], [place] [address] Aug, [facility] [address] [id number] [address] [place] [address], [place] [address] Aug, [facility] [address] [id number] [address] [place] [address], [place] [address] Aug, [facility] [address] [id number] [address] [place] [address], [place] [address] Aug, [facility] [address] [id number] [address] [place] [address], [place] [address] Jul, [facility] [address] [id number] [address] [place] [address], [place] [address] Jul, [facility] [address] [id number] [address] [place] [address], [place] [address] Jul, [facility] [address] [id number] [address] [place] [address], [place] [address] Jul, [facility] [address] [id number] [address] [place] [address], [place] [address] Jul, [facility] [address] [id number] [address] [place] [address], [place] [address] Jul, [facility] [address] [id number] [address] [place] [address], [place] [address] Jun, [facility] [address] [id number] [address] [place] [address], [place] [address] Jun, [facility] [address] [id number] [address] [place] [address], [place] [address] Jun, [facility] [address] [id number] [address] [place] [address], [place] [address] Jun, [facility] [address] [id number] [address] [place] [address], [place] [address] Jun, [facility] [address] [id number] [address] [place] [address], [place] [address] Jun, [facility] [address] [id number] [address] [place] [address], [place] [address] Jun, [facility] [address] [id number] [address] [place] [address] Jun, [facility] [address] [id number] [address] [place] [address], [place] [address] Jun, [facility] [address] [id number] [address] [place] [address], [place] [address] 26 May, 2012 [facility] [address] [id number] [address] [place] [address], [place] [address] 24 May, 2012 [facility] [address] [id number] [address] [place] [address], [place] [address] May, [facility] [address] [id number] [address] [place] [address], [place] [address] Apr, [facility] [address] [id number] [address] [place] [address], [place] [address] Apr, [facility] [address] [id number] [address] [place] [address], [place] [address] Apr, [facility] [address] [id number] [address] [place] [address], [place] [address] Apr, [facility] [address] [id number] [address] [place] [address], [place] [address] Apr, [facility] [address] [id number] [address] [place] [address], [place] [address] Apr, [facility] [address] [id number] [address] [place] [address], [place] [address] Mar, [facility] [address] [id number] [address] [place] [address], [place] [address] Mar, [facility] [address] [id number] [address] [place] [address], [place] [address] Mar, [facility] [address] [id number] [address] [place] [address], [place] [address] Mar, [facility] [address] [id number] [address] [place] [address], [place] [address] Feb, [facility] [address] [id number] [address] [place] [address], [place] [address] Feb, [facility] [address] [id number] [address] [place] [address], [place] [address] Feb, [facility] [address] [id number] [address] [place] [address], [place] [address] Feb, [facility] [address] [id number] [address] [place] [address], [place] [address] Feb, [facility] [address] [id number] [address] [place] [address], [place] [address] January, [facility] [address] [id number] [address] [place] [address], [place] [address] January, [facility] [address] [id number] [address] [place] [address], [place] [address] January, [facility] [address] [id number] [address] [place] [address], [place] [address] January, [facility] [address] [id number] [address] [place] [address], [place] [address] January, [facility] [address] [id number] [address] [place] [address], [place] [address] January, [facility] [address] [id number] [address] [place] [address], [place] [address] Dec, [facility] [address] [id number] [address] [place] [address], [place] [address] Dec, [facility] [address] [id number] [address] [place] [address], [place] [address] Dec, [facility] [address] [id number] [address] [place] [address], [place] [address] Dec, [facility] [address] [id number] [address] [place] [address], [place] [address] Dec, [facility] [address] [id number] [address] [place] [address], [place] [address] Nov, [facility] [address] [id number] [address] [place] [address], [place] [address] 14 Nov, 2011 [facility] [address] [id number] [address] [place] [address], [place] [address] 12 Nov, 2011 [facility] [address] [id number] [address] [place] [address], [place] [address] 07 Nov, 2011 [facility] [address] [id number] [address] [place] [address], [place] [address] 29 Oct, 2011 [facility] [address] [id number] [address] [place] [address], [place] [address] 28 Oct, 2011 [facility] [address] [id number] [address] [place] [address], [place] [address] 24 Oct, [address] [facility] [address] [id number] [address] [place] [address], [place] [address] 13 Oct, 2011 [facility] [address] [id number] [address] [place] [address], [place] [address] 08 Oct, 2011 [facility] [address] [id number] [address] [place] [address], [place] [address] Sep, [facility] [address] [id number] [address] [place] [address], [place] [address] Sep, [facility] [address] [id number] [address] [place] [address], [place] [address] Sep, [facility] [address] [id number] [address] [place] [address], [place] [address] Sep, [facility] [address] [id number] [address] [place] [address], [place] [address] Sep, [facility] [address] [id number] [address] [place] [address], [place] [address] Sep, [facility] [address] [id number] [address] [place] [address], [place] [address] Aug, [facility] [address] [id number] [address] [place] [address] [address] Aug, [facility] [address] [id number] [address] [place] [address], [place] [address] Aug, [facility] [address] [id number] [address] [place] [address], [place] [address] Jul, [facility] [address] [id number] [address] [place] [address], [place] [address] Jul, [facility] [address] [id number] [address] [place] [address], [place] [address] Jul, [facility] [address] [id number] [address] [place] [address], [place] [address] Jul, [facility] [address] [id number] [address] [place] [address], [place] [address] Jun, [facility] [address] [id number] [address] [place] [address], [place] [address] Jun, [facility] [address] [id number] [address] [place] [address], [place] [address] Jun, [facility] [address] [id number] [address] [place] [address], [place] [address] Jun, [facility] [address] [id number] [address] [place] [address], [place] [address] Jun, [facility] [address] [id number] [address] [place] [address] Jun, [facility] [address] [id number] [address] [place] [address] Mar, [facility] [address] [id number] [address] [place] [address], [place] [address] Dec, [facility] [address] [id number] [address] [place] [address] Dec, [facility] [address] [id number] [address] [place] [address], [place] [address] Nov, [facility] [address] [id number] [address] [place] [address], [place] [address] 16 Nov, 2010 [facility] [address] [id number] [address] [place] [address], [place] [address] 10 Sep, 2010 [facility] [address] [id number] [address] [place] [address], [place] [address] 31 Aug, 2010 [facility] [address] [id number] [address] [place] [address], [place] [address] 29 Aug, 2010 [facility] [address] [id number] [address] [place] [address], [place] [address] 29 Aug, 2010 [facility] [address] [id number] [address] [place] [address], [place] [address] 29 Aug, 2010 [facility] [address] [id number] [address] [place] [address], [place] [address] 27 Aug, 2010 [facility] [address] [id number] [address] [place] [address], [place] [address] 14 Aug, 2010 [facility] [address] [address] [id number] [address] [place] [address], [place] [address] 08 Aug, 2010 [facility] [address] [id number] [address] [place] [address], [place] [address] 08 Aug, 2010 [facility] [address] [id number] [address] [place] [address], [place] [address] 07 Aug, 2010 [facility] [address] [id number] [address] [place] [address], [place] [address] 06 Aug, [address] [facility] [address] [id number] [address] [place] [address], [place] [address] Aug, [facility] [address] [id number] [address] [place] [address], [place] [address] Aug, [facility] [address] [id number] [address] [place] [address], [place] [address] Jul, [facility] [address] [id number] [address] [place] [address], [place] [address] 30 Jul, 2010 [facility] [address] [id number] [address] [place] [address], [place] [address] Jul, [facility] [address] [id number] [address] [place] [address], [place] [address] Jul, [facility] [address] [id number] [address] [place] [address], [place] [address] Jul, [facility] [address] [id number] [address] [place] [address], [place] [address] Jul, [facility] [address] [id number] [address] [place] [address], [place] [address] 24 Jun, 2010 [facility] [address] [id number] [address] [place] [address], [place] [address] Jun, [facility] [address] [id number] [address] [place] [address], [place] [address] Jun, [facility] [address] [id number] [address] [place] [address], [place] [address] Jun, [facility] [address] [id number] [address] [place] [address], [place] [address] Apr, [facility] [address] [id number] [address] [place] [address], [place] [address] Mar, [facility] [address] [id number] [address] [place] [address], [place] [address] Feb, [facility] [address] [id number] [address] [place] [address], [place] [address] January, [facility] [address] [id number] [address] [place] [address], [place] [address] 15 Dec, 2009 [facility] [address] [id number] [address] [place] [address], [place] [address] Nov, [facility] [address] [id number] [address] [place] [address], [place] [address] 31 Aug, 2009 [facility] [address] [id number] [address] [place] [phone] Aug, [facility] [address] [id number] [address] [place] [phone] Aug, [facility] [address] [id number] [address] [place] [phone] Jul, [facility] [address] [id number] [address] [place] [phone] Jul, [facility] [address] [id number] [address] [place] [phone] Jul, [facility] [address] [id number] [address] [place] [id number] Jun, [facility] [address] [id number] [address] [place] [phone] Jun, [facility] [address] [id number] [address] [place] [phone] Jun, [facility] [address] [id number] [address] [place] [id number] Jun, [facility] [address] [id number] [address] [place] [id number] Jun, [facility] [address] [id number] [address] [place] [phone] Jun, [facility] [address] [id number] [address] [place] [id number] Apr, [facility] [address] [id number] [address] [place] [phone] Apr, [facility] [address] [id number] [address] [place] [phone] Feb, [facility] [address] [id number] [address] [place] [phone] January, [facility] [address] [id number] [address] [place] [phone] Dec, IMMUNIZATIONS No Known Immunizations SOCIAL HISTORY Never Assessed REASON FOR VISIT PLAN OF CARE VITAL SIGNS Height 67 in 2013-06-05 Weight 323.29 lbs 2013-06-05 Temperature 97.6 degrees Fahrenheit 2013-06-05 Heart Rate 75 bpm 2013-06-05 Respiratory Rate 18 2013-06-05 Blood pressure systolic 160 mmHg 2013-06-05 Blood pressure diastolic 90 mmHg 2013-06-05 MEDICATIONS Unknown Medications RESULTS No Results PROCEDURES Procedure Date Ordered Result Body Site X-RAY EXAM OF ELBOW Jun 05, 2013 X-RAY EXAM OF SHOULDER Jun 05, 2013 INSTRUCTIONS MEDICATIONS ADMINISTERED No Known Medications MEDICAL (GENERAL) HISTORY Type Description Date Medical History type II diabetes Medical History coronary artery disease stress test Medical History chronic obstructive pulmonary disease (C OPD) Medical History gastroesophageal reflux disease (GERD) Medical History acute renal failure Medical History erectile dysfunction Medical History hyperlipidemia Medical History obesity Medical History skin cancer-basal cell R latter-day (removed ) Medical History Arthritis Medical History [...] 2009 Surgical History colonoscopy 2009 ([facility]), 2013 ([facility] ) Surgical History heart cath: CAD w/ [...] History inability to urinate 09/16/15 Hospitalization History [facility] e[facility] 1999' Hospitalization History hyperkalemia 10/2017 Hospitalization History fluid in lung
--- OUTSIDE RECORDS SUMMARY | 2020-03-01 16:39 | XMS REPORT ---
Author Author Michele WASHBURN Organization [facility] Address [address] [place] [address] Care Team Providers Care Dot Net Developer Name Role Phone NOEMI WASHBURN Unavailable PROBLEMS Type Condition ICD9-CM Code [id number] Code Onset Dates Condition S tatus SNOMED Code Problem DM neuro manif type II E11.49 Active 89080163 Problem Chronic pain G89.29 Active 3170926 1 Problem Diabetes E11.9 Active 31309434 Problem Reactive airway disease J45.909 Active 791187427236 Problem Leukocytosis D72.829 Active 7414356 06 Problem Insomnia, unspecified type G47.00 Act sharon 219201912 Problem Bipolar I disorder, most recent episode (or curr ent) mixed, moderate F31.62 Active 40191761 Problem Primary osteoarthritis of right knee M17.11 Active 087163832286067 Problem Cough R05 Active 19886634 Problem Pure hypercholesterolemia E78.00 Acti ve 034435316 Problem Dysuria R30.0 Active 39700589 Problem Benign prostatic hyperplasia with lower urinary tract symptoms, unspecified morphology N40.1 Active 13338 6007 Problem Eustachian tube dysfunction, unspecified laterality H69.80 Active 42148524 Problem Polyneuropathy associated with underlying disease G63 Active 739016632 Problem Diabetic polyneuropathy associated with type 2 d iabetes mellitus E11.42 Active 73229081 Problem Anemia of chronic illness D63.8 Acti ve 716975111 Problem Chronic lymphocytic leukemia C91.10 A ctive 18278245 Problem Bilateral primary osteoarthritis of knee M17.0 Active 613508265 Problem 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 Active 077335671 Problem Eye exam abnormal R93.8 Active 16 4185072 Problem Retinal edema H35.81 Active 478065 6 Problem Lymphocytosis D72.820 Active 990501 09 Problem Bipolar disorder, in partial remission, most rec ent episode depressed F31.75 Active 58941638 Problem Hypokalemia E87.6 Active 65019959 Problem Falling R29.6 Active 587632673 Problem Pressure ulcer of other site, stage 3 L89.893 Active 254009856 Problem Other iron deficiency anemia D50.8 A ctive 21909689 Problem Mild cognitive impairment G31.84 Acti ve 017131670 Problem Skin cancer C44.90 Active 64483552 7 Problem prison (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 Z79.4 Active 218272851 Problem Morbid obesity E66.01 Active 49327 6002 Problem Mood disorder F39 Active 836862 05 Problem Anxiety F41.9 Active 19791296 Problem Essential hypertension I10 Active 65527672 Problem Bipolar disorder F31.9 Active 137 95018 Problem Chronic diastolic (congestive) heart failure I50.3 2 Active 547845686 Problem Psychophysiological insomnia F51.04 A ctive 622989437 Problem Type 2 diabetes mellitus with diabetic neuropathy, uns pecified E11.40 Active 12138005 ALLERGIES No Information ENCOUNTERS Encounter Location Date Diagnosis [place] [address] [address] Dec, [place] [address] [address] Dec, [place] [address] [address] Nov, [place] [address] [address] Nov, [place] [address] [address] Nov, Syncope, unspecified syncope type R55 [place] [address] [address] Nov, Mood disorder F39 [place] [address] [address] Oct, Chronic pain G89.29 [place] [address] [address] Oct, [place] [address] [address] Oct, Mood disorder F39 [facility] [address] [id number] [place] [address] Oct, [facility] [address] [id number] [place] [address] Oct, Bipolar disorder, in partial remission, most recent episode depressed F31.75 and Mild cognitive impairment G31.84 [facility] [address] [place] [id number] [place] [address] 04 Oct, 2019 Mood disorder F39 [facility] [address] [id number] [place] [address] Sep, [facility] [address] [address] [id number] [place] [address] Sep, Mood disorder F39 [facility] [address] [place] [address] [id number] [place] [address] Sep, Bipolar disorder, in partial remission, most recent episode depressed F31.75 and Mild cognitive impairment G31.84 [facility] [address] [id number] [place] [address] Sep, Mood disorder F39 [facility] [address] [address] [id number] [place] [address] Sep, [facility] [address] [id number] [place] [address] Sep, Mood disorder F39 [facility] [address] [id number] [place] [address] Sep, [facility] [address] [id number] [place] [address] Aug, Mood disorder F39 [facility] [address] [place] [address] [id number] [place] [address] Aug, [facility] [address] [id number] [place] [address] Aug, [facility] [address] [id number] [place] [address] Aug, [facility] [address] [place] [address] [id number] [place] [address] Aug, [facility] [address] [place] [id number] [place] [address] Aug, [facility] [address] [place] [address] [id number] [place] [address] Aug, [facility] [address] [address] Aug, [facility] [address] [address] Aug, Essential hypertension I10 [facility] [address] [address] Aug, Bipolar disorder, in partial remission, most recent episode depressed F31.75 and Mild cognitive impairment G31.84 [facility] [address] [address] Aug, Mood disorder F39 [facility] [address] [address] Aug, [facility] [address] [address] Aug, Bipolar disorder, in partial remission, most recent episode depressed F31.75 and Mild cognitive impairment G31.84 [facility] [address] [address] Jul, Bipolar disorder, in partial remission, most recent episode depressed F31.75 and Mild cognitive impairment G31.84 [facility] [address] [id number] [place] [address] Jul, Psychophysiological insomnia F51.04 [facility] [address] [id number] [place] [address] Jul, [facility] [address] [address] Jul, [facility] [address] [address] Jul, [facility] [address] [place] [id number] [place] [address] Jul, [facility] [address] [address] Jul, [facility] [address] [address] Jul, [place] [address] [address] Jul, Bipolar disorder, in partial remission, most recent episode depressed F31.75 and Mild cognitive impairment G31.84 [place] [address] [address] Jul, Chronic pain G89.29 ; Diabetes E11.9 ; E ssential hypertension I10 ; Ill feeling R68.89 ; Local infection of the skin and subcutaneous tissue, unspecified L08.9 and Other injury of unspecified body region, initial encounter T14.8XXA [place] [address] [id number] [place] [address] Jun, Bipolar disorder, in partial remission, most recent episode depressed F31.75 and Mild cognitive impairment G31.84 [place] [address] [address] Jun, [place] [address] [address] Jun, Bipolar disorder, in partial remission, most recent episode depressed F31.75 and Mild cognitive impairment G31.84 [place] [address] [id number] [place] [address] Jun, Psychophysiological insomnia F51.04 [place] [address] [address] Jun, Psychophysiological insomnia F51.04 ; Ch ronic pain G89.29 ; Bipolar I disorder, most recent episode (or current) mixed, moderate F31.62 ; 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 ; Polyneuropathy associated with underlying disease G63 ; Type 2 diabetes mellitus with diabetic neuropathy, unspecified E11.40 ; prison (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 Z79.4 and Hyperglycemia R73.[address] [address] Jun, Bipolar disorder, in partial remission, most recent episode depressed F31.75 and Mild cognitive impairment G31.[address] [address] Jun, [address] [address] Jun, Bipolar disorder F31.[address] [address] May, Bipolar disorder, in partial remission, most recent episode depressed F31.75 and Mild cognitive impairment G31.[address] [address] May, [address] [address] Apr, Chronic pain G89.29 and Bipolar disorder F31.[address] [address] Mar, Bipolar disorder F31.9 and Chronic pain G89.[address] [address] Feb, Bipolar disorder F31.[address] [address] Feb, Cellulitis of right upper extremity L03. 113 and Skin abrasion T14.8XXA [address] [address] Feb, Bipolar disorder, in partial remission, most recent episode depressed F31.75 and Mild cognitive impairment G31.[address] [address] Feb, Chronic pain G89.[id number] [place] [address] Feb, Bipolar disorder, in partial remission, most recent episode depressed F31.75 and Mild cognitive impairment G31.84 [facility] [address] [address] January, Bipolar disorder, in partial remission, most recent episode depressed F31.75 and Mild cognitive impairment G31.84 [facility] [address] [address] January, Chronic pain G89.29 and Bipolar disorder F31.9 [facility] [address] [address] January, Bipolar disorder, in partial remission, most recent episode depressed F31.75 and Mild cognitive impairment G31.84 [place] [address] [address] Dec, [place] [address] [address] Dec, Chronic pain G89.29 and Bipolar disorder F31.9 [facility] [address] [address] Dec, Edema of both lower extremities R60.0 [facility] [address] [address] Dec, Bipolar disorder F31.9 [facility] [address] [address] Dec, Bipolar disorder, in partial remission, most recent episode depressed F31.75 and Mild cognitive impairment G31.84 [facility] [address] [place] [id number] [place] [address] Nov, [facility] [address] [address] Nov, Chronic pain G89.29 [facility] [address] [address] Nov, Bipolar disorder, in partial remission, most recent episode depressed F31.75 and Mild cognitive impairment G31.84 [place] [address] [address] Nov, Bipolar disorder F31.9 [place] [address] [address] 04 Nov, 2018 Encounter for Medicare annual wellness e xam Z00.00 ; Polyneuropathy associated with underlying disease [...] unspecified morphology N40.1 and Essential hypertension I10 [place] [address] [address] Oct, Chronic pain G89.29 [place] [address] [address] 18 Oct, 2018 Diabetes E11.9 [place] [address] [address] 11 Oct, 2018 Bipolar I disorder, most recent episode (or current) mixed, moderate F31.62 and Mild cognitive impairment G31.84 [place] [address] [address] Oct, Bipolar I disorder, most recent episode (or current) mixed, moderate F31.62 and Mild cognitive impairment G31.84 [place] [address] [address] Sep, Bipolar I disorder, most recent episode (or current) mixed, moderate F31.62 and Mild cognitive impairment G31.84 [place] [address] [address] Sep, [place] [address] [address] Sep, Diabetes E11.9 ; Hypoxia R09.02 ; Hyperg lycemia R73.9 ; Therapeutic drug monitoring Z51.81 ; BMI 50.0-59.9, adult Z68.43 and Skin cancer C44.90 [place] [address] [address] Sep, Chronic pain G89.29 [place] [address] [place] [address] Sep, Bipolar I disorder, most recent episode (or current) mixed, moderate F31.62 [place] [address] [address] Sep, [place] [address] [address] Sep, [place] [address] [address] Aug, Chronic pain G89.29 [place] [address] [address] Aug, Bipolar I disorder, most recent episode (or current) mixed, moderate F31.62 [place] [address] [address] Aug, Bipolar I disorder, most recent episode (or current) mixed, moderate F31.62 and Mild cognitive impairment G31.84 [place] [address] [address] Jul, [place] [address] [address] Jul, Chronic pain G89.29 [place] [address] [address] Jul, Bipolar I disorder, most recent episode (or current) mixed, moderate F31.62 and Mild cognitive impairment G31.84 [place] [address] [address] Jul, Bipolar I disorder, most recent episode (or current) mixed, moderate F31.62 and MCI (mild cognitive impairment) G31.84 [facility] [address] [id number] [place] [address] Jul, [facility] [id number] [place] [address] Jul, [facility] [address] [place] [id number] [place] [address] Jul, Bipolar I disorder, most recent episode (or current) mixed, moderate F31.62 [place] [address] [place] [id number] [place] [address] Jul, Chronic pain G89.29 [place] [address] [address] Jun, Bipolar I disorder, most recent episode (or current) mixed, moderate F31.62 [place] [address] [place] [id number] [place] [address] Jun, Pre-procedure lab exam Z01.812 [place] [address] [place] [id number] [place] [address] Jun, [place] [address] [place] [id number] [id number] Jun, [place] [address] [address] Jun, [address] [address] Jun, Forgetfulness R68.89 ; Pre-syncope R55 ; Localized edema R60.0 ; Other iron deficiency anemia D50.8 and BMI 50.0-59.9, adult Z68.43 [place] [address] [address] Jun, Chronic pain G89.29 [facility] [address] [id number] [place] [address] Jun, Chronic pain G89.29 [place] [address] [address] Jun, Bipolar I disorder, most recent episode (or current) mixed, moderate F31.62 [place] [address] [address] May, Chronic pain G89.29 [place] [address] [address] Apr, [place] [address] [address] Apr, Chronic pain G89.29 [place] [address] [address] Apr, Primary osteoarthritis of right knee M17 .11 [place] [address] [address] Mar, [place] [address] [address] Mar, BMI 50.0-59.9, adult Z68.43 and Bipolar disorder, in partial remission, most recent episode depressed F31.75 [place] [address] [address] Mar, Diabetes E11.9 ; Pure hypercholesterolem ia E78.00 ; Essential hypertension I10 ; Nausea with vomiting, unspecified R11.2 and Headache, unspecified headache type R51 [place] [address] [address] Mar, Bipolar I disorder, most recent episode (or current) mixed, moderate F31.62 [place] [address] [address] Mar, Bipolar I disorder, most recent episode (or current) mixed, moderate F31.62 [place] [address] [address] Mar, Chronic pain G89.29 [place] [address] [address] Mar, Bipolar I disorder, most recent episode (or current) mixed, moderate F31.62 [place] [address] [address] Feb, Bipolar I disorder, most recent episode (or current) mixed, moderate F31.62 [place] [address] [address] Feb, Chronic pain G89.29 [place] [address] [address] Feb, Decubitus ulcer of right foot, stage 3 L 89.893 and BMI 50.0-59.9, adult Z68.43 [place] [address] [address] Feb, Bipolar I disorder, most recent episode (or current) mixed, moderate F31.62 [place] [address] [address] Feb, [place] [address] [address] January, [place] [address] [address] January, Chronic pain G89.29 [place] [address] [address] January, Bipolar I disorder, most recent episode (or current) mixed, moderate F31.62 [place] [address] [address] January, Bipolar I disorder, most recent episode (or current) mixed, moderate F31.62 [place] [address] [address] Dec, Bipolar I disorder, most recent episode (or current) mixed, moderate F31.62 and BMI 50.0-59.9, adult Z68.43 [place] [address] [address] Dec, Bipolar I disorder, most recent episode (or current) mixed, moderate F31.62 [facility] [address] [address] Dec, Chronic pain G89.29 [facility] [address] [address] Dec, DM neuro manif type II E11.49 ; Right fl ank pain R10.9 ; prison 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 Z79.891 ; Encounter for medication monitoring Z51.81 and BMI 50.0-59.9, adult Z68.43 [place] [address] [address] Dec, Bipolar I disorder, most recent episode (or current) mixed, moderate F31.62 [place] [address] [address] Nov, Bipolar I disorder, most recent episode (or current) mixed, moderate F31.62 [place] [address] [address] Nov, Chronic pain G89.29 [place] [address] [address] Nov, Bipolar I disorder, most recent episode (or current) mixed, moderate F31.62 [place] [address] [address] Nov, Hypokalemia E87.6 [place] [address] [address] Nov, Bipolar I disorder, most recent episode (or current) mixed, moderate F31.62 [place] [address] [address] Oct, Chronic pain G89.29 [facility] [address] [address] Oct, BMI 50.0-59.9, adult Z68.43 and Bipolar I disorder, most recent episode (or current) mixed, moderate F31.62 [facility] [address] [address] Oct, Bipolar I disorder, most recent episode (or current) mixed, moderate F31.62 [facility] [address] [address] Oct, [facility] [address] [address] Oct, Hypokalemia E87.6 [place] [address] [address] Oct, DM neuro manif type II E11.49 [place] [address] [address] Oct, Bipolar I disorder, most recent episode (or current) mixed, moderate F31.62 [place] [address] [address] Oct, Bipolar I disorder, most recent episode (or current) mixed, moderate F31.62 [place] [address] [address] Oct, Hyperkalemia E87.5 ; Falling R29.6 ; BMI 50.0-59.9, adult Z68.43 and Acute left ankle pain M25.572 [place] [address] [address] Oct, DM neuro manif type II E11.49 [place] [address] [address] Oct, [place] [address] [address] Sep, Chronic pain G89.29 [place] [address] [address] Sep, [place] [address] [address] Sep, Bilateral primary osteoarthritis of knee M17.0 [place] [address] [address] 18 Sep, 2017 Generalized edema R60.1 [place] [address] [address] 16 Sep, 2017 Bipolar I disorder, most recent episode (or current) mixed, moderate F31.62 [place] [address] [address] 15 Sep, 2017 Hypoxia R09.02 ; Other hypervolemia E87. 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 ; Anemia of chronic illness D63.8 and BMI 50.0-59.9, adult Z68.43 [place] [address] [address] Sep, [place] [address] [address] Sep, Bipolar I disorder, most recent episode (or current) mixed, moderate F31.62 [place] [address] [address] 28 Aug, 2017 Chronic pain G89.29 [place] [address] [address] 27 Aug, 2017 Generalized edema R60.1 [place] [address] [address] 18 Aug, 2017 [place] [address] [address] 18 Aug, 2017 [place] [address] [address] 14 Aug, 2017 Bipolar I disorder, most recent episode (or current) mixed, moderate F31.62 [place] [address] [address] 07 Aug, 2017 Bipolar I disorder, most recent episode (or current) mixed, moderate F31.62 [place] [address] [address] Aug, Chronic pain G89.29 [place] [address] [place] [address] Jul, Bipolar I disorder, most recent episode (or current) mixed, moderate F31.62 [place] [address] [address] Jul, Bipolar I disorder, most recent episode (or current) mixed, moderate F31.62 and BMI 60.0-69.9, adult Z68.44 [place] [address] [place] [address] Jul, Bipolar I disorder, most recent episode (or current) mixed, moderate F31.62 [place] [address] [address] Jul, Chronic pain G89.29 [place] [address] [place] [address] Jul, Bipolar I disorder, most recent episode (or current) mixed, moderate F31.62 [place] [address] [address] Jun, Polyneuropathy associated with underlyin g disease G63 and Diabetes E11.[address] [address] Jun, Bipolar I disorder, most recent episode (or current) mixed, moderate F31.62 [place] [address] [address] Jun, Chronic pain G89.29 [place] [address] [place] [address] May, Bipolar I disorder, most recent episode (or current) mixed, moderate F31.62 [place] [address] [place] [address] May, Bipolar I disorder, most recent episode (or current) mixed, moderate F31.62 [place] [address] [address] 20 May, 2017 Diabetic polyneuropathy associated with type 2 diabetes mellitus E11.42 [facility] [address] [address] 18 May, 2017 Bipolar I disorder, most recent episode (or current) mixed, moderate F31.62 [place] [address] [address] 13 May, 2017 Bipolar I disorder, most recent episode (or current) mixed, moderate F31.62 [place] [address] [address] 12 May, 2017 Chronic pain G89.29 [place] [address] [address] 30 Apr, 2017 Bipolar I disorder, most recent episode (or current) mixed, moderate F31.62 [place] [address] [address] Apr, [place] [address] [address] Apr, Chronic pain G89.29 and DM neuro manif t ype II E11.49 [place] [address] [address] Apr, [place] [address] [address] Apr, Bipolar I disorder, most recent episode (or current) mixed, moderate F31.62 [place] [address] [address] 14 Apr, 2017 Chronic pain G89.29 [place] [address] [address] Apr, Iliotibial band syndrome, left M76.32 [facility] [address] [address] Apr, Bipolar I disorder, most recent episode (or current) mixed, moderate F31.62 [facility] [address] [address] Mar, Bipolar I disorder, most recent episode (or current) mixed, moderate F31.62 [facility] [address] [address] Mar, Bipolar I disorder, most recent episode (or current) mixed, moderate F31.62 [facility] [address] [address] Mar, [place] [address] [address] Mar, Bipolar I disorder, most recent episode (or current) mixed, moderate F31.62 [place] [address] [address] Mar, Chronic pain G89.29 [place] [address] [address] Mar, Bipolar I disorder, most recent episode (or current) mixed, moderate F31.62 [place] [address] [address] Mar, Bipolar I disorder, most recent episode (or current) mixed, moderate F31.62 [place] [address] [address] Mar, Acute pain of left knee M25.562 ; Left h ip pain M25.552 ; Generalized edema R60.1 and Tongue swelling R22.0 [place] [address] [address] Mar, [place] [address] [address] Feb, Chronic pain G89.29 [place] [address] [address] Feb, Diabetes E11.9 [place] [address] [address] [address] January, Chronic pain G89.29 [facility] [address] [address] January, [facility] [address] [address] January, Bipolar I disorder, most recent episode (or current) mixed, moderate F31.62 [facility] [address] [address] Dec, Bipolar I disorder, most recent episode (or current) mixed, moderate F31.62 [facility] [address] [address] Dec, Chronic pain G89.29 [facility] [address] [address] Dec, Bipolar I disorder, most recent episode (or current) mixed, moderate F31.62 [place] [address] [address] Dec, Diabetes E11.9 ; Essential hypertension I10 ; Chronic pain G89.29 and Morbid obesity E66.01 [facility] [address] [address] Dec, [facility] [address] [address] Dec, Bipolar I disorder, most recent episode (or current) mixed, moderate F31.62 [facility] [address] [address] Dec, Bipolar I disorder, most recent episode (or current) mixed, moderate F31.62 [facility] [address] [address] Nov, Chronic pain G89.29 [facility] [address] [address] Nov, Bipolar I disorder, most recent episode (or current) mixed, moderate F31.62 [place] [address] [address] Nov, [facility] [address] [address] Nov, Bipolar I disorder, most recent episode (or current) mixed, moderate F31.62 [facility] [address] [address] Nov, Bipolar I disorder, most recent episode (or current) mixed, moderate F31.62 [facility] [address] [address] Nov, [facility] [address] [address] Nov, [facility] [address] [address] Nov, [facility] [address] [address] Oct, Chronic pain G89.29 [facility] [address] [address] Oct, Bipolar I disorder, most recent episode (or current) mixed, moderate F31.62 [facility] [address] [address] Oct, [facility] [address] [address] Oct, Chronic pain G89.29 ; Diabetes E11.9 ; A nxiety F41.9 and 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 [facility] [address] [address] Oct, [facility] [address] [address] Oct, Diabetes E11.9 [facility] [address] [address] Oct, Bipolar I disorder, most recent episode (or current) mixed, moderate F31.62 [facility] [address] [address] Sep, Chronic pain G89.29 [facility] [address] [address] Sep, Chronic pain G89.29 [facility] [address] [address] Aug, Chronic pain G89.29 [facility] [address] [address] Jul, [facility] [address] [address] Jul, Diabetes E11.9 [facility] [address] [address] Jul, Chronic pain G89.29 [facility] [address] [address] Jul, Bipolar I disorder, most recent episode (or current) mixed, moderate F31.62 [place] [address] [address] Jun, Bipolar I disorder, most recent episode (or current) mixed, moderate F31.62 [place] [address] [address] Jun, [facility] [address] [address] Jun, Bipolar I disorder, most recent episode (or current) mixed, moderate F31.62 [place] [address] [address] 30 May, 2016 Insomnia, unspecified type G47.00 [place] [address] [address] May, Bipolar I disorder, most recent episode (or current) mixed, moderate F31.62 [place] [address] [address] 14 May, 2016 [place] [address] [address] May, Bipolar I disorder, most recent episode (or current) mixed, moderate F31.62 [place] [address] [address] May, Diabetes E11.9 and Essential hypertensio n I10 [place] [address] [address] Apr, Chronic pain G89.[address] [address] Apr, Bipolar I disorder, most recent episode (or current) mixed, moderate F31.62 [place] [address] [address] Apr, [place] [address] [address] Apr, [address] [address] Mar, Chronic pain G89.29 ; Headache, unspecif ied headache type R51 ; Neuropathy G62.9 ; Pain of right hip joint M25.551 and Essential hypertension I10 [place] [address] [address] Mar, Chronic pain G89.29 [place] [address] [address] Mar, Bipolar I disorder, most recent episode (or current) mixed, moderate F31.62 [place] [address] [address] Feb, Bipolar I disorder, most recent episode (or current) mixed, moderate F31.62 and Insomnia, unspecified type G47.00 [place] [address] [address] Feb, Chronic pain G89.29 [place] [address] [address] Feb, Bipolar I disorder, most recent episode (or current) mixed, moderate F31.62 [facility] [address] [address] January, Bipolar I disorder, most recent episode (or current) mixed, moderate F31.62 [facility] [address] [address] January, Chronic pain G89.29 [facility] [address] [address] January, Chronic pain G89.29 and Essential hypert ension I10 [facility] [address] [address] January, Bipolar I disorder, most recent episode (or current) mixed, moderate F31.62 [facility] [address] [address] Dec, [facility] [address] [address] Dec, [facility] [address] [address] Dec, [facility] [address] [address] Dec, [facility] [address] [address] Nov, Reactive airway disease J45.909 [facility] [address] [address] Nov, [facility] [address] [address] Nov, [facility] [address] [address] 30 Nov, 2015 [facility] [address] [address] Nov, [facility] [address] [address] Nov, Onychomycosis B35.1 ; Hammertoe M20.40 ; [place] or callus L84 and DM neuro manif type II E11.49 [place] [address] [address] Nov, Chronic pain G89.29 ; Leukocytosis D72.8 29 and Diabetes E11.9 [place] [address] [address] Nov, [place] [address] [address] Oct, Bronchitis J40 [place] [address] [address] Oct, [place] [address] [address] Oct, [address] [address] Oct, Mastoiditis, unspecified laterality H70. 90 and Type 2 diabetes mellitus with complication E11.[address] [address] Sep, [address] [address] Sep, Dysuria R30.0 ; Cough R05 ; Benign prost atic hyperplasia with lower urinary tract symptoms, unspecified morphology N40.1 ; Hypokalemia E87.6 and Eustachian tube dysfunction, unspecified laterality H69.80 [place] [address] [address] Sep, Moderate mixed bipolar I disorder F31.[address] [address] Sep, Hypokalemia E87.[address] [address] Sep, [address] [place] [address] Sep, Upper respiratory tract infection, unspe cified type J06.9 [facility] [address] [address] Aug, [facility] [address] [address] Aug, Dysuria R30.0 [facility] [address] [address] Aug, [facility] [address] [address] Jul, [facility] [address] [address] Jul, [facility] [address] [address] Jul, [facility] [address] [address] Jul, [facility] [address] [address] Jun, [facility] [address] [address] Jun, [facility] [address] [address] Jun, [facility] [address] [address] May, [facility] [address] [address] May, Bipolar I disorder, most recent episode (or current) mixed, moderate 296.62 [facility] [address] [address] 16 May, 2015 [facility] [address] [address] May, Bipolar I disorder, most recent episode (or current) mixed, moderate 296.62 and Major depressive disorder, recurrent episode, severe, specified as with psychotic behavior 296.34 [facility] [address] [address] May, Bipolar I disorder, most recent episode (or current) mixed, moderate 296.62 [facility] [address] [address] May, [facility] [address] [address] Apr, [facility] [address] [address] Apr, [facility] [address] [address] Apr, Unspecified disorder of kidney and urete r 593.9 and Diabetes mellitus type 2, uncontrolled 250.02 [facility] [address] [address] Apr, [facility] [address] [address] Apr, [facility] [address] [address] Apr, [facility] [address] [address] Apr, [facility] [address] [address] Apr, Diabetes mellitus type II, uncontrolled 250.02 [facility] [address] [address] Apr, [facility] [address] [address] Mar, [facility] [address] [address] Mar, [facility] [address] [address] Mar, [facility] [address] [address] Mar, Major depressive disorder, recurrent epi sode, severe, specified as with psychotic behavior 296.34 and Bipolar I disorder, most recent episode (or current) mixed, moderate 296.62 [facility] [address] [address] Mar, Diabetes 250.00 ; Anuria 788.5 ; Nausea and vomiting 787.01 and Diarrhea 787.91 [facility] [address] [address] Mar, Diabetes 250.00 [facility] [address] [address] Mar, [facility] [address] [place] [address] Mar, Diabetes 250.00 [facility] [address] [address] Mar, [facility] [address] [address] Mar, [facility] [address] [address] Mar, [address] [address] Mar, [facility] [address] [address] Mar, Bipolar I disorder, most recent episode (or current) mixed, moderate 296.62 and Major depressive disorder, recurrent episode, severe, specified as with psychotic behavior 296.34 [facility] [address] [place] [address] Mar, Magnesium deficiency 275.2 ; Hypokalemia 276.8 ; Nausea & vomiting 787.01 and Diabetes mellitus type 2, uncontrolled 250.02 [facility] [address] [address] Feb, [facility] [address] [place] [address] Feb, Bipolar I disorder, most recent episode (or current) mixed, moderate 296.[address] [address] Feb, Nausea and vomiting 787.01 ; Left elbow pain 719.42 ; Anuria 788.5 and Diabetes 250.[address] [address] Feb, [place] [id number] Feb, Hypopotassemia 276.8 and Hypokalemia [address] [address] Feb, Hypopotassemia 276.8 and Hypokalemia [address] [address] Feb, Seborrheic keratoses 702.[address] [address] Feb, Hypopotassemia 276.8 and Low magnesium l evels 275.[address] [address] January, [address] [address] January, [address] [address] January, [address] [address] January, Scalp lesion 709.[address] [address] January, [address] [address] Dec, Tear of medial cartilage or meniscus of knee, current 836.0 and 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 [place] [address] 29 Dec, 2014 [facility] [address] [id number] [place] [address] 29 Dec, 2014 [facility] [address] [id number] [place] [address] 28 Dec, 2014 Squamous cell carcinoma, 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 42 [facility] [address] [id number] [place] [address] 14 Dec, 2014 [facility] [address] [id number] [place] [address] 13 Dec, 2014 [facility] [address] [id number] [place] [address] Nov, [facility] [address] [id number] [place] [address] Nov, [facility] [address] [place] [id number] [place] [address] Nov, [facility] [address] [id number] [place] [address] Nov, [facility] [address] [id number] [place] [address] Nov, [facility] [address] [id number] [place] [address] Nov, [facility] [address] [id number] [place] [address] Nov, [facility] [address] [id number] [place] [address] Nov, [facility] [address] [id number] [place] [address] Nov, [facility] [address] [id number] [place] [address] Nov, [facility] [address] [id number] [place] [address] Nov, [facility] [address] [id number] [place] [address] Nov, [facility] [address] [id number] [place] [address] Oct, [facility] [address] [id number] [place] [address] Oct, [facility] [address] [id number] [place] [address] Oct, [facility] [address] [id number] [place] [address] Oct, 2014 [facility] [address] [id number] [place] [address] Oct, [facility] [address] [id number] [place] [address] Oct, [facility] [address] [id number] [place] [address] Oct, [facility] [address] [id number] [place] [address] Oct, 2014 [facility] [address] [id number] [place] [address] Oct, [facility] [address] [id number] [place] [address] Sep, [facility] [address] [id number] [place] [address] Sep, [facility] [address] [id number] [place] [address] Sep, [facility] [address] [id number] [place] [address] Sep, [facility] [address] [id number] [place] [address] Sep, [facility] [address] [id number] [place] [address] Sep, [facility] [address] [id number] [place] [address] Sep, [facility] [address] [id number] [place] [address] Sep, [facility] [address] [id number] [place] [address] Sep, [facility] [address] [id number] [place] [address] Sep, [facility] [address] [id number] [place] [address] Sep, [facility] [address] [id number] [place] [address] 08 Sep, 2014 [facility] [address] [id number] [place] [address] Sep, [facility] [address] [id number] [place] [address] Sep, [facility] [address] [id number] [place] [address] Sep, [facility] [address] [id number] [place] [address] Sep, [facility] [address] [id number] [place] [address] Aug, [facility] [address] [id number] [place] [address] Aug, [facility] [address] [id number] [place] [address] Aug, [facility] [address] [id number] [place] [address] 31 Aug, 2014 [facility] [address] [id number] [place] [address] Aug, [facility] [address] [id number] [place] [address] 31 Aug, 2014 [facility] [address] [id number] [place] [address] 17 Aug, 2014 [facility] [address] [id number] [place] [address] Aug, [facility] [address] [facility] [id number] [place] [address] Aug, [facility] [address] [facility] [id number] [place] [address] Aug, [facility] [address] [id number] [place] [address] Aug, [facility] [id number] Aug, [facility] [address] [facility] [id number] [place] [address] Aug, [facility] [address] [id number] [place] [address] Aug, [facility] [address] [id number] [place] [address] Aug, [facility] [address] [id number] [place] [address] Aug, [facility] [address] [id number] [place] [address] Aug, [facility] [address] [id number] [place] [address] Aug, [facility] [address] [id number] [place] [address] Aug, [facility] [address] [id number] [place] [address] Aug, [facility] [address] [facility] [id number] [place] [address] Aug, [facility] [address] [id number] [place] [address] Aug, [facility] [address] [id number] [place] [address] Aug, [facility] [address] [id number] [place] [address] Aug, [facility] [address] [id number] [place] [address] Aug, [facility] [address] [id number] [place] [address] Aug, [facility] [address] [id number] [place] [address] Aug, [facility] [address] [id number] [place] [address] Aug, [facility] [address] [id number] [place] [address] Aug, [facility] [address] [id number] [place] [address] Aug, [facility] [address] [id number] [place] [address] Jul, [facility] [address] [id number] [place] [address] Jul, [facility] [address] [id number] [place] [address] Jul, [facility] [address] [id number] [place] [address] Jul, [facility] [address] [id number] [place] [address] Jul, [facility] [address] [id number] [place] [address] Jul, [facility] [address] [id number] [place] [address] Jul, [facility] [address] [id number] [place] [address] Jul, [facility] [id number] [place] [address] Jul, [facility] [address] [id number] [place] [address] Jul, [facility] [address] [id number] [place] [address] Jun, [facility] [address] [id number] [place] [address] Jun, [facility] [address] [id number] [place] [address] Jun, [facility] [address] [id number] [place] [address] 16 Jun, 2014 [facility] [address] [id number] [place] [address] Jun, [facility] [address] [id number] [place] [address] Jun, [facility] [address] [id number] [place] [address] Jun, [facility] [address] [id number] [place] [address] Jun, [facility] [address] [id number] [place] [address] Jun, [facility] [address] [id number] [place] [address] Jun, [facility] [address] [id number] [place] [address] 29 Sep, 2013 [facility] [address] [id number] [place] [address] 29 Sep, 2013 [facility] [address] [id number] [place] [address] 26 Sep, 2013 [facility] [address] [id number] [place] [address] 26 Sep, 2013 [facility] [address] [id number] [place] [address] 17 Sep, 2013 [facility] [address] [id number] [place] [address] 17 Sep, 2013 [facility] [address] [id number] [place] [address] 15 Sep, 2013 [facility] [address] [id number] [place] [address] 15 May, 2013 [facility] [address] [id number] [facility] [place] [address] 15 May, 2013 [facility] [place] [facility] [address] [facility] [id number] [facility] [place] [address] 15 May, 2013 [facility] [place] [facility] [address] [facility] [id number] [facility] [place] [address] 10 May, 2013 [facility] [place] [facility] [address] [id number] [facility] [place] [address] 10 May, 2013 [facility] [place] [facility] [address] [facility] [id number] [facility] [place] [address] 09 May, 2013 [facility] [place] [facility] [address] [id number] [facility] [place] [address] May, 2013 [facility] [place] [facility] [address] [id number] [place] [address] May, 2013 [facility] [place] [facility] [address] [id number] [facility] [place] [address] May, 2013 [facility] [place] [facility] [address] [facility] [id number] [facility] [place] [address] Apr, [facility] [place] [facility] [address] [id number] [facility] [place] [address] Apr, [facility] [place] [facility] [address] [facility] [id number] [place] [address] Apr, [facility] [place] [facility] [address] [id number] [place] [address] Apr, 2013 [facility] [place] [facility] [address] [facility] [id number] [facility] [place] [address] Apr, 2013 [facility] [place] [facility] [address] [id number] [place] [address] Apr, [facility] [place] [facility] [address] [facility] [id number] [place] [address] Apr, 2013 [facility] [place] [facility] [address] [id number] [place] [address] Apr, 2013 [facility] [place] [facility] [address] [id number] [place] [address] Apr, [facility] [place] [facility] [address] [id number] [facility] [place] [address] Apr, [facility] [place] [facility] [address] [facility] [id number] [place] [address] Apr, [facility] [place] [facility] [address] [id number] [place] [address] Apr, [facility] [place] [facility] [address] [facility] [id number] [place] [address] Apr, [facility] [place] [facility] [address] [id number] [place] [address] Apr, [facility] [place] [facility] [address] [id number] [place] [address] Apr, [facility] [place] [facility] [address] [id number] [place] [address] Mar, [facility] [place] [facility] [address] [id number] [place] [address] Mar, [facility] [place] [facility] [address] [id number] [place] [address] Mar, [facility] [place] [facility] [address] [id number] [place] [address] Mar, [facility] [place] [facility] [address] [id number] [place] [address] Mar, [facility] [place] [facility] [address] [id number] [place] [address] Mar, [facility] [place] [facility] [address] [facility] [id number] [place] [address] Mar, [facility] [place] [facility] [address] [id number] [place] [address] Mar, [facility] [place] [facility] [address] [id number] [place] [address] Mar, [facility] [place] [facility] [address] [id number] [place] [address] Mar, [facility] [place] [facility] [address] [id number] [place] [address] Mar, 2013 [facility] [place] [facility] [address] [facility] [id number] [place] [address] Mar, 2013 [facility] [place] [facility] [address] [facility] [id number] [place] [address] Mar, 2013 [facility] [place] [facility] [address] [id number] [place] [address] Mar, 2013 [facility] [place] [facility] [address] [facility] [id number] [place] [address] Mar, 2013 [facility] [place] [facility] [address] [id number] [place] [address] Mar, 2013 [facility] [place] [facility] [address] [id number] [place] [address] Mar, 2013 [facility] [place] [facility] [address] [id number] [place] [address] Mar, 2013 [facility] [place] [facility] [address] [id number] [place] [address] Feb, [facility] [place] [facility] [address] [id number] [place] [address] Feb, [facility] [place] [facility] [address] [id number] [place] [address] Feb, [facility] [place] [facility] [address] [id number] [place] [address] Feb, [facility] [place] [facility] [address] [id number] [place] [address] Feb, [facility] [place] [facility] [address] [facility] [id number] [place] [address] Feb, [facility] [place] [facility] [address] [id number] [place] [address] Feb, [facility] [place] [facility] [address] [id number] [place] [address] Feb, [facility] [place] [facility] [address] [id number] [place] [address] Feb, [facility] [place] [facility] [address] [facility] [facility] [id number] [place] [address] Feb, [facility] [place] [facility] [address] [id number] [facility] [place] [address] Feb, [facility] [place] [facility] [address] [id number] [place] [address] Feb, [facility] [place] [facility] [address] [id number] [place] [address] Feb, [facility] [place] [facility] [address] [id number] [facility] [place] [address] Feb, [facility] [place] [facility] [address] [id number] [place] [address] January, [facility] [place] [facility] [address] [id number] [place] [address] January, [facility] [place] [facility] [address] [id number] [facility] [place] [address] January, [facility] [place] [facility] [address] [id number] [place] [address] January, [facility] [place] [facility] [address] [id number] [place] [address] January, [facility] [place] [facility] [address] [id number] [place] [address] January, [facility] [place] [facility] [address] [id number] [place] [address] January, [facility] [place] [facility] [address] [id number] [place] [address] January, [facility] [place] [facility] [address] [id number] [place] [address] January, [facility] [place] [facility] [address] [id number] [place] [address] January, [facility] [place] [facility] [address] [id number] [place] [address] January, [facility] [place] [facility] [address] [id number] [place] [address] January, [facility] [place] [facility] [address] [id number] [place] [address] January, [facility] [place] [facility] [address] [id number] [place] [address] January, [facility] [place] [facility] [address] [id number] [place] [address] Dec, [facility] [place] [facility] [address] [id number] [place] [address] Dec, [facility] [place] [facility] [address] [id number] [place] [address] Dec, [facility] [place] [facility] [address] [id number] [place] [address] Dec, [facility] [place] [facility] [address] [id number] [place] [address] Dec, [facility] [place] [facility] [address] [id number] [place] [address] Dec, [facility] [place] [facility] [address] [id number] [place] [address] Dec, [facility] [place] [facility] [address] [id number] [place] [address] Dec, [facility] [place] [facility] [address] [id number] [place] [address] Dec, [facility] [place] [facility] [address] [id number] [place] [address] Dec, [facility] [place] [facility] [address] [id number] [place] [address] Nov, [facility] [place] [facility] [address] [id number] [place] [address] Nov, [facility] [place] [facility] [address] [id number] [place] [address] Nov, [facility] [place] [facility] [address] [id number] [place] [address] Nov, [facility] [place] [facility] [address] [id number] [place] [address] 08 Nov, 2013 [facility] [place] [facility] [address] [id number] [place] [address] Nov, [facility] [place] [facility] [address] [id number] [place] [address] Nov, [facility] [place] [facility] [address] [id number] [place] [address] Nov, [facility] [place] [facility] [address] [id number] [place] [address] Nov, [facility] [place] [facility] [address] [id number] [place] [address] Nov, [facility] [place] [facility] [address] [id number] [place] [address] Oct, [facility] [place] [facility] [address] [id number] [place] [address] Oct, [facility] [place] [facility] [address] [id number] [place] [address] Oct, [facility] [place] [facility] [address] [id number] [place] [address] Oct, [facility] [place] [facility] [address] [id number] [place] [address] Oct, [facility] [place] [facility] [address] [id number] [place] [address] Oct, [facility] [place] [facility] [address] [id number] [place] [address] 14 Oct, 2013 [facility] [place] [facility] [address] [id number] [place] [address] Oct, [facility] [place] [facility] [address] [id number] [place] [address] 05 Oct, 2013 [facility] [place] [facility] [address] [id number] [place] [address] 05 Oct, 2013 [facility] [place] [facility] [address] [id number] [place] [address] 04 Oct, 2013 [facility] [place] [facility] [address] [id number] [place] [address] Oct, [facility] [place] [facility] [address] [id number] [place] [address] Oct, [facility] [place] [facility] [address] [id number] [place] [address] Oct, [facility] [place] [facility] [address] [id number] [place] [address] Sep, [facility] [place] [facility] [address] [id number] [place] [address] Sep, [facility] [place] [facility] [address] [id number] [place] [address] 15 Sep, 2013 [facility] [place] [facility] [address] [id number] [place] [address] 15 Sep, 2013 [facility] [place] [facility] [address] [id number] [place] [address] 14 Sep, 2013 [facility] [place] [facility] [address] [id number] [place] [address] Sep, [facility] [place] [facility] [address] [id number] [place] [address] Sep, [facility] [place] [facility] [address] [id number] [place] [address] 14 Sep, 2013 [facility] [place] [facility] [address] [id number] [place] [address] 08 Sep, 2013 [facility] [place] [facility] [address] [id number] [place] [address] 08 Sep, 2013 [facility] [place] [facility] [address] [id number] [place] [address] Aug, [facility] [place] [facility] [address] [id number] [place] [address] Aug, [facility] [place] [facility] [address] [id number] [place] [address] Jul, [facility] [place] [facility] [address] [id number] [place] [address] Jul, [facility] [place] [facility] [address] [id number] [place] [address] Jul, [facility] [place] [facility] [address] [id number] [place] [address] Jul, [facility] [place] [facility] [address] [id number] [place] [address] Jul, [facility] [place] [facility] [address] [id number] [place] [address] Jul, [facility] [place] [facility] [address] [id number] [place] [address] Jul, [facility] [place] [facility] [address] [id number] [place] [address] Jul, [facility] [place] [facility] [address] [id number] [place] [address] Jul, [facility] [place] [facility] [address] [id number] [place] [address] Jul, [facility] [place] [facility] [address] [id number] [place] [address] Jul, [facility] [place] [facility] [address] [id number] [place] [address] Jul, [facility] [place] [facility] [address] [id number] [place] [address] Jul, [facility] [place] [facility] [address] [id number] [place] [address] Jul, [facility] [place] [facility] [address] [id number] [place] [address] Jul, [facility] [place] [facility] [address] [id number] [place] [address] Jul, [facility] [place] [facility] [address] [id number] [place] [address] Jul, [facility] [place] [facility] [address] [id number] [place] [address] Jul, 2012 [facility] [place] [facility] [address] [id number] [place] [address] Jul, 2012 [facility] [place] [facility] [address] [id number] [place] [address] Jun, 2012 [facility] [place] [facility] [address] [id number] [place] [address] Jun, 2012 [facility] [place] [facility] [address] [id number] [place] [address] Jun, 2012 [facility] [place] [facility] [address] [id number] [place] [address] Jun, 2012 [facility] [place] [facility] [address] [facility] [id number] [place] [address] Jun, 2012 [facility] [place] [facility] [address] [id number] [place] [address] Jun, 2012 [facility] [place] [facility] [address] [id number] [place] [address] Jun, 2012 [facility] [place] [facility] [address] [id number] [place] [address] Jun, [facility] [place] [facility] [address] [id number] [place] [address] Jun, [facility] [place] [facility] [address] [id number] [place] [address] Jun, [facility] [place] [facility] [address] [facility] [id number] [place] [address] Jun, 2012 [facility] [place] [facility] [address] [id number] [place] [address] 26 May, 2012 [facility] [place] [facility] [address] [id number] [place] [address] 25 Sep, 2012 [facility] [place] [facility] [address] [id number] [place] [address] 19 Sep, 2012 [facility] [place] [facility] [address] [id number] [place] [address] 17 Sep, 2012 [facility] [place] [facility] [address] [id number] [facility] [address] 11 May, 2012 [facility] [place] [facility] [address] [id number] [facility] [place] [address] May, 2012 [facility] [place] [facility] [address] [id number] [facility] [place] [address] May, [facility] [place] [facility] [address] [id number] [place] [address] May, [facility] [place] [facility] [address] [id number] [facility] [place] [address] Apr, [facility] [place] [facility] [address] [id number] [facility] [place] [address] Apr, [facility] [place] [facility] [address] [id number] [place] [address] Apr, [facility] [place] [facility] [address] [id number] [place] [address] Apr, [facility] [place] [facility] [address] [id number] [place] [address] Apr, [facility] [place] [facility] [address] [id number] [place] [address] Mar, [facility] [place] [facility] [address] [id number] [place] [address] Mar, [facility] [place] [facility] [address] [id number] [place] [address] Mar, [facility] [place] [facility] [address] [id number] [place] [address] Mar, [facility] [place] [facility] [address] [facility] [id number] [place] [address] Mar, [facility] [place] [facility] [address] [id number] [place] [address] Mar, [facility] [place] [facility] [address] [id number] [place] [address] Mar, [facility] [place] [facility] [address] [id number] [place] [address] Mar, [facility] [address] [facility] [id number] [place] [address] Feb, [facility] [address] [id number] [place] [address] Feb, [facility] [place] [facility] [address] [id number] [place] [address] January, [facility] [address] [id number] [place] [address] January, [facility] [place] [facility] [address] [id number] [place] [address] Dec, [facility] [address] [id number] [place] [address] Dec, [facility] [place] [facility] [address] [id number] [place] [address] Nov, [facility] [address] [id number] [place] [address] Nov, [facility] [place] [facility] [address] [id number] [place] [address] Nov, [facility] [place] [facility] [address] [id number] [place] [address] Nov, [facility] [place] [facility] [address] [id number] [place] [address] Oct, [facility] [place] [facility] [address] [id number] [place] [address] Oct, [facility] [place] [facility] [address] [id number] [place] [address] Oct, [facility] [place] [facility] [address] [id number] [place] [address] Oct, [facility] [place] [facility] [address] [id number] [place] [address] 16 Oct, 2012 [facility] [place] [facility] [address] [id number] [place] [address] 14 Oct, 2012 [facility] [place] [facility] [address] [id number] [place] [address] 08 Oct, 2012 [facility] [place] [facility] [address] [id number] [place] [address] 07 Oct, 2012 [facility] [place] [facility] [address] [id number] [place] [address] Oct, [facility] [place] [facility] [address] [id number] [place] [address] Sep, [facility] [place] [facility] [address] [id number] [place] [address] Sep, [facility] [place] [facility] [address] [id number] [place] [address] Sep, [facility] [place] [facility] [address] [id number] [place] [address] Sep, [facility] [place] [facility] [address] [id number] [place] [address] Sep, [facility] [place] [facility] [address] [id number] [place] [address] Sep, [facility] [place] [facility] [address] [id number] [place] [address] Sep, [facility] [place] [facility] [address] [id number] [place] [address] Sep, [facility] [place] [facility] [address] [id number] [place] [address] Aug, [facility] [place] [facility] [address] [id number] [place] [address] Aug, [facility] [place] [facility] [address] [id number] [place] [address] Aug, [facility] [place] [facility] [id number] [place] [address] Aug, [facility] [place] [facility] [address] [id number] [place] [address] Aug, [facility] [place] [facility] [address] [id number] [place] [address] Aug, [facility] [place] [facility] [address] [id number] [place] [address] Aug, [facility] [place] [facility] [address] [id number] [place] [address] Aug, [facility] [place] [facility] [address] [id number] [place] [address] Jul, [facility] [place] [facility] [address] [id number] [place] [address] Jul, [facility] [place] [facility] [address] [id number] [place] [address] Jul, [facility] [place] [facility] [address] [id number] [place] [address] Jul, [facility] [place] [facility] [address] [id number] [place] [address] Jul, [facility] [place] [facility] [address] [id number] [place] [address] Jul, [facility] [place] [facility] [address] [id number] [place] [address] Jun, [facility] [place] [facility] [address] [id number] [place] [address] Jun, [facility] [place] [facility] [address] [id number] [place] [address] Jun, [facility] [place] [facility] [address] [id number] [place] [address] Jun, [facility] [place] [facility] [address] [id number] [place] [address] Jun, [facility] [place] [facility] [address] [id number] [place] [address] Jun, [facility] [place] [facility] [address] [id number] [place] [address] Jun, [facility] [place] [facility] [address] [id number] [place] [address] Jun, [facility] [place] [facility] [address] [id number] [place] [address] Jun, [facility] [place] [facility] [address] [facility] [id number] [place] [address] 26 May, 2012 [facility] [place] [facility] [address] [id number] [place] [address] 24 May, 2012 [facility] [place] [facility] [address] [id number] [place] [address] May, [facility] [place] [facility] [address] [id number] [place] [address] Apr, [facility] [place] [facility] [address] [id number] [place] [address] Apr, [facility] [place] [facility] [address] [id number] [place] [address] Apr, [facility] [place] [facility] [address] [id number] [place] [address] Apr, [facility] [place] [facility] [address] [id number] [place] [address] Apr, [facility] [place] [facility] [address] [id number] [place] [address] Apr, [facility] [place] [facility] [address] [id number] [place] [address] Mar, [facility] [place] [facility] [address] [id number] [place] [address] Mar, [facility] [place] [facility] [address] [id number] [place] [address] Mar, [facility] [place] [facility] [address] [id number] [place] [address] Mar, [facility] [place] [facility] [address] [id number] [place] [address] Feb, [facility] [place] [facility] [address] [id number] [place] [address] Feb, [facility] [place] [facility] [address] [id number] [place] [address] Feb, [facility] [place] [facility] [address] [id number] [place] [address] Feb, [facility] [place] [facility] [address] [id number] [place] [address] Feb, [facility] [place] [facility] [address] [id number] [place] [address] January, [facility] [place] [facility] [address] [id number] [place] [address] January, [facility] [place] [facility] [address] [id number] [place] [address] January, [facility] [place] [facility] [address] [id number] [place] [address] January, [facility] [place] [facility] [address] [id number] [place] [address] January, [facility] [place] [facility] [address] [id number] [place] [address] January, [facility] [place] [facility] [address] [id number] [place] [address] Dec, [facility] [place] [facility] [address] [id number] [place] [address] Dec, [facility] [place] [facility] [address] [id number] [place] [address] Dec, [facility] [address] [id number] [place] [address] Dec, [facility] [address] [id number] [place] [address] Dec, [facility] [address] [id number] [place] [address] Nov, [facility] [address] [id number] [place] [address] 14 Nov, 2011 [facility] [address] [id number] [place] [address] Nov, [facility] [address] [id number] [place] [address] Nov, [facility] [address] [id number] [place] [address] 29 Oct, 2011 [facility] [address] [id number] [place] [address] Oct, [facility] [address] [id number] [place] [address] Oct, [facility] [address] [id number] [place] [address] Oct, [facility] [address] [id number] [place] [address] 08 Oct, 2011 [facility] [address] [id number] [place] [address] Sep, [facility] [address] [id number] [place] [address] Sep, [facility] [id number] [place] [address] Sep, [facility] [address] [id number] [place] [address] Sep, [facility] [id number] [place] [address] Sep, [facility] [address] [id number] [place] [address] Sep, [facility] [id number] [place] [address] Aug, [facility] [address] [id number] [place] [address] Aug, [facility] [address] [id number] [place] [address] Aug, [facility] [address] [id number] [place] [address] Jul, [facility] [address] [id number] [place] [address] Jul, [facility] [address] [id number] [place] [address] 10 Jul, 2011 [facility] [address] [id number] [place] [address] Jul, [facility] [address] [id number] [place] [address] Jun, [facility] [address] [id number] [place] [address] Jun, [facility] [address] [id number] [place] [address] Jun, [facility] [address] [id number] [place] [address] Jun, [facility] [address] [id number] [place] [address] Jun, [facility] [address] [id number] [place] [address] Jun, [facility] [address] [id number] [place] [address] Mar, [facility] [address] [id number] [place] [address] Dec, [facility] [address] [id number] [place] [address] Dec, [facility] [address] [id number] [place] [address] Nov, [facility] [address] [id number] [place] [address] 16 Nov, 2010 [facility] [address] [id number] [place] [address] Sep, [facility] [address] [id number] [place] [address] Aug, [facility] [address] [id number] [place] [address] Aug, [facility] [address] [id number] [place] [address] Aug, [facility] [address] [id number] [place] [address] 29 Aug, 2010 [facility] [address] [id number] [place] [address] 27 Aug, 2010 [facility] [address] [id number] [place] [address] 14 Aug, 2010 [facility] [address] [id number] [place] [address] 08 Aug, 2010 [facility] [address] [id number] [place] [address] 08 Aug, 2010 [facility] [address] [id number] [place] [address] 07 Aug, 2010 [facility] [address] [id number] [place] [address] 06 Aug, 2010 [facility] [address] [id number] [place] [address] Aug, [facility] [address] [id number] [place] [address] Aug, [facility] [address] [id number] [place] [address] Jul, [facility] [address] [id number] [place] [address] Jul, [facility] [address] [id number] [place] [address] 30 Jul, 2010 [facility] [address] [id number] [place] [address] 17 Jul, 2010 [facility] [address] [id number] [place] [address] Jul, [facility] [id number] [place] [address] Jul, [facility] [address] [id number] [place] [address] 24 Jun, 2010 [facility] [address] [id number] [place] [address] 19 Jun, 2010 [facility] [address] [facility] [id number] [place] [address] 19 Jun, 2010 [facility] [address] [id number] [place] [address] 13 Jun, 2010 [facility] [address] [id number] [place] [address] 16 Apr, 2010 [facility] [address] [id number] [place] [address] Mar, [facility] [address] [facility] [id number] [place] [address] Feb, [facility] [address] [id number] [place] [address] January, [facility] [address] [id number] [place] [address] 15 Dec, 2009 [facility] [address] [id number] [place] [address] Nov, [facility] [address] [id number] [place] [address] Aug, [facility] [address] [id number] [place] [address] Aug, [facility] [address] [id number] [place] [address] Aug, [facility] [address] [id number] [place] [address] Jul, [facility] [address] [id number] [place] [address] Jul, [facility] [address] [id number] [place] [address] Jul, [facility] [address] [id number] [place] [address] 30 Jun, 2009 [facility] [address] [id number] [place] [address] 29 Jun, 2009 [facility] [id number] [place] [address] Jun, [facility] [id number] [place] [address] Jun, [facility] [id number] [place] [address] Jun, [facility] [address] [address] Jun, [facility] [address] [address] Apr, [facility] [address] [address] Apr, [facility] [address] [address] Feb, [facility] [facility] [address] [id number] January, [facility] [address] [id number] Dec, IMMUNIZATIONS No Known Immunizations SOCIAL HISTORY [...] obesity Medical History skin cancer-basal cell R nondenominational (removed ) Medical History Arthritis Medical History [...] History inability to urinate 09/16/15 Hospitalization History [facility] inpatient mental health ea rly 1999's Hospitalization History hyperkalemia 10/2017 Hospitalization History fluid in lung
--- OUTSIDE RECORDS SUMMARY | 2020-03-01 16:40 | XMS REPORT ---
Author Author Michele WASHBURN Organization [facility] Address [address] [place] [address] Care Team Providers Care Associate Loan Officer Name Role Phone NOEMI WASHBURN Unavailable PROBLEMS Type Condition ICD9-CM Code [id number] Code Onset Dates Condition S tatus SNOMED Code Problem DM neuro manif type II E11.49 Active 10327185 Problem Chronic pain G89.29 Active 9088817 1 Problem Diabetes E11.9 Active 08003098 Problem Reactive airway disease J45.909 Active 659996588087 Problem Leukocytosis D72.829 Active 6528625 06 Problem Insomnia, unspecified type G47.00 Act sharon 081750638 Problem Bipolar I disorder, most recent episode (or curr ent) mixed, moderate F31.62 Active 22491709 Problem Primary osteoarthritis of right knee M17.11 Active 747777102530531 Problem Dysuria R30.0 Active 66083818 Problem Pure hypercholesterolemia E78.00 Acti ve 506462040 Problem Hypokalemia E87.6 Active 64937909 Problem Benign prostatic hyperplasia with lower urinary tract symptoms, unspecified morphology N40.1 Active 43289 6007 Problem Cough R05 Active 35625066 Problem Polyneuropathy associated with underlying disease G63 Active 787930591 Problem Diabetic polyneuropathy associated with type 2 d iabetes mellitus E11.42 Active 71724423 Problem Retinal edema H35.81 Active 063508 6 Problem Pressure ulcer of other site, stage 3 L89.893 Active 277286754 Problem Bilateral primary osteoarthritis of knee M17.0 Active 088608660 Problem 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 Active 730546403 Problem Lymphocytosis D72.820 Active 364636 09 Problem Anemia of chronic illness D63.8 Acti ve 320032264 Problem Chronic lymphocytic leukemia C91.10 A ctive 82811520 Problem Bipolar disorder, in partial remission, most rec ent episode depressed F31.75 Active 49617637 Problem Eustachian tube dysfunction, unspecified laterality H69.80 Active 80673721 Problem Falling R29.6 Active 018584944 Problem Eye exam abnormal R93.8 Active 16 0188770 Problem Other iron deficiency anemia D50.8 A ctive 77830495 Problem Mild cognitive impairment G31.84 Acti ve 776583249 Problem Skin cancer C44.90 Active 43560585 7 Problem Psychophysiological insomnia F51.04 A ctive 066684833 Problem Morbid obesity E66.01 Active 24571 6002 Problem Mood disorder F39 Active 447477 05 Problem Anxiety F41.9 Active 67242683 Problem Essential hypertension I10 Active 08393524 Problem Bipolar disorder F31.9 Active 137 44008 Problem Chronic diastolic (congestive) heart failure I50.3 2 Active 441439685 Problem intermediate (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 Z79.4 Active 395546237 Problem Type 2 diabetes mellitus with diabetic neuropathy, uns pecified E11.40 Active 73055174 ALLERGIES No Information ENCOUNTERS Encounter Location Date Diagnosis [place] [address] [address] Dec, [place] [address] [address] Dec, [place] [address] [address] Nov, [place] [address] [address] Nov, [place] [address] [address] Nov, Syncope, unspecified syncope type R55 [place] [address] [address] Nov, Mood disorder F39 [place] [address] [address] Oct, Chronic pain G89.29 [place] [address] [address] Oct, [place] [address] [address] Oct, Mood disorder F39 [facility] [id number] [place] [address] Oct, [facility] [id number] [place] [address] Oct, Bipolar disorder, in partial remission, most recent episode depressed F31.75 and Mild cognitive impairment G31.84 [facility] [address] [place] [id number] [place] [address] 04 Oct, 2019 Mood disorder F39 [facility] [id number] [place] [address] Sep, [facility] [address] [place] [address] [id number] [place] [address] Sep, Mood disorder F39 [facility] [address] [place] [address] [id number] [place] [address] Sep, Bipolar disorder, in partial remission, most recent episode depressed F31.75 and Mild cognitive impairment G31.84 [facility] [id number] [place] [address] Sep, Mood disorder F39 [facility] [address] [place] [address] [id number] [place] [address] Sep, [facility] [id number] [place] [address] Sep, Mood disorder F39 [facility] [id number] [place] [address] Sep, [facility] [id number] [place] [address] Aug, Mood disorder F39 [facility] [address] [place] [address] [id number] [place] [address] Aug, [facility] [id number] [place] [address] Aug, [facility] [id number] [place] [address] Aug, [facility] [address] [place] [id number] [place] [address] Aug, [facility] [address] [place] [id number] [place] [address] Aug, [facility] [address] [place] [address] [id number] [place] [address] Aug, [facility] [address] [address] Aug, [facility] [address] [address] Aug, Essential hypertension I10 [facility] [address] [address] Aug, Bipolar disorder, in partial remission, most recent episode depressed F31.75 and Mild cognitive impairment G31.84 [facility] [address] [address] Aug, Mood disorder F39 [facility] [address] [address] Aug, [facility] [address] [address] Aug, Bipolar disorder, in partial remission, most recent episode depressed F31.75 and Mild cognitive impairment G31.84 [facility] [address] [address] Jul, Bipolar disorder, in partial remission, most recent episode depressed F31.75 and Mild cognitive impairment G31.84 [facility] [address] [place] [id number] [place] [address] Jul, Psychophysiological insomnia F51.04 [facility] [address] [place] [id number] [place] [address] Jul, [facility] [address] [address] Jul, [facility] [address] [address] Jul, [facility] [address] [place] [id number] [place] [address] Jul, [facility] [address] [address] Jul, [facility] [address] [address] Jul, [place] [address] [address] Jul, Bipolar disorder, in partial remission, most recent episode depressed F31.75 and Mild cognitive impairment G31.84 [place] [address] [address] Jul, Chronic pain G89.29 ; Diabetes E11.9 ; E ssential hypertension I10 ; Ill feeling R68.89 ; Local infection of the skin and subcutaneous tissue, unspecified L08.9 and Other injury of unspecified body region, initial encounter T14.8XXA [place] [address] [place] [id number] [place] [address] Jun, Bipolar disorder, in partial remission, most recent episode depressed F31.75 and Mild cognitive impairment G31.84 [place] [address] [address] Jun, [place] [address] [address] Jun, Bipolar disorder, in partial remission, most recent episode depressed F31.75 and Mild cognitive impairment G31.84 [place] [address] [place] [id number] [place] [address] Jun, Psychophysiological insomnia F51.04 [place] [address] [address] Jun, Psychophysiological insomnia F51.04 ; Ch ronic pain G89.29 ; Bipolar I disorder, most recent episode (or current) mixed, moderate F31.62 ; 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 ; Polyneuropathy associated with underlying disease G63 ; Type 2 diabetes mellitus with diabetic neuropathy, unspecified E11.40 ; intermediate (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 Z79.4 and Hyperglycemia R73.[address] [address] Jun, Bipolar disorder, in partial remission, most recent episode depressed F31.75 and Mild cognitive impairment G31.[address] [address] Jun, [address] [address] Jun, Bipolar disorder F31.[address] [address] May, Bipolar disorder, in partial remission, most recent episode depressed F31.75 and Mild cognitive impairment G31.[address] [address] May, [address] [address] Apr, Chronic pain G89.29 and Bipolar disorder F31.[address] [address] Mar, Bipolar disorder F31.9 and Chronic pain G89.[address] [address] Feb, Bipolar disorder F31.[address] [address] Feb, Cellulitis of right upper extremity L03. 113 and Skin abrasion T14.8XXA [address] [address] Feb, Bipolar disorder, in partial remission, most recent episode depressed F31.75 and Mild cognitive impairment G31.[address] [address] Feb, Chronic pain G89.[id number] [place] [address] Feb, Bipolar disorder, in partial remission, most recent episode depressed F31.75 and Mild cognitive impairment G31.84 [facility] [address] [address] January, Bipolar disorder, in partial remission, most recent episode depressed F31.75 and Mild cognitive impairment G31.84 [facility] [address] [address] January, Chronic pain G89.29 and Bipolar disorder F31.9 [facility] [address] [address] January, Bipolar disorder, in partial remission, most recent episode depressed F31.75 and Mild cognitive impairment G31.84 [place] [address] [address] Dec, [place] [address] [address] Dec, Chronic pain G89.29 and Bipolar disorder F31.9 [facility] [address] [address] Dec, Edema of both lower extremities R60.0 [facility] [address] [address] Dec, Bipolar disorder F31.9 [facility] [address] [address] Dec, Bipolar disorder, in partial remission, most recent episode depressed F31.75 and Mild cognitive impairment G31.84 [facility] [address] [place] [id number] [place] [address] Nov, [facility] [address] [address] Nov, Chronic pain G89.29 [facility] [address] [address] Nov, Bipolar disorder, in partial remission, most recent episode depressed F31.75 and Mild cognitive impairment G31.84 [place] [address] [address] Nov, Bipolar disorder F31.9 [place] [address] [address] 04 Nov, 2018 Encounter for Medicare annual [...] unspecified morphology N40.1 and Essential hypertension I10 [place] [address] [address] Oct, Chronic pain G89.29 [place] [address] [address] 18 Oct, 2018 Diabetes E11.9 [place] [address] [address] 11 Oct, 2018 Bipolar I disorder, most recent episode (or current) mixed, moderate F31.62 and Mild cognitive impairment G31.84 [place] [address] [address] Oct, Bipolar I disorder, most recent episode (or current) mixed, moderate F31.62 and Mild cognitive impairment G31.84 [place] [address] [address] Sep, Bipolar I disorder, most recent episode (or current) mixed, moderate F31.62 and Mild cognitive impairment G31.84 [place] [address] [address] Sep, [place] [address] [address] Sep, Diabetes E11.9 ; Hypoxia R09.02 ; Hyperg lycemia R73.9 ; Therapeutic drug monitoring Z51.81 ; BMI 50.0-59.9, adult Z68.43 and Skin cancer C44.90 [place] [address] [address] Sep, Chronic pain G89.29 [place] [address] [place] [address] Sep, Bipolar I disorder, most recent episode (or current) mixed, moderate F31.62 [place] [address] [address] Sep, [place] [address] [address] Sep, [place] [address] [address] Aug, Chronic pain G89.29 [place] [address] [address] Aug, Bipolar I disorder, most recent episode (or current) mixed, moderate F31.62 [place] [address] [address] Aug, Bipolar I disorder, most recent episode (or current) mixed, moderate F31.62 and Mild cognitive impairment G31.84 [place] [address] [address] Jul, [place] [address] [address] Jul, Chronic pain G89.29 [place] [address] [address] Jul, Bipolar I disorder, most recent episode (or current) mixed, moderate F31.62 and Mild cognitive impairment G31.84 [place] [address] [address] Jul, Bipolar I disorder, most recent episode (or current) mixed, moderate F31.62 and MCI (mild cognitive impairment) G31.84 [facility] [address] [place] [address] [id number] [place] [address] Jul, [facility] [address] [place] [id number] [place] [address] Jul, [facility] [address] [place] [id number] [place] [address] Jul, Bipolar I disorder, most recent episode (or current) mixed, moderate F31.62 [place] [address] [place] [id number] [place] [address] Jul, Chronic pain G89.29 [place] [address] [address] Jun, Bipolar I disorder, most recent episode (or current) mixed, moderate F31.62 [place] [address] [place] [id number] [place] [address] Jun, Pre-procedure lab exam Z01.812 [place] [address] [place] [id number] [place] [address] Jun, [place] [address] [place] [id number] [id number] Jun, [place] [address] [address] Jun, [address] [address] Jun, Forgetfulness R68.89 ; Pre-syncope R55 ; Localized edema R60.0 ; Other iron deficiency anemia D50.8 and BMI 50.0-59.9, adult Z68.43 [place] [address] [address] Jun, Chronic pain G89.29 [facility] [address] [place] [id number] [place] [address] Jun, Chronic pain G89.29 [place] [address] [address] Jun, Bipolar I disorder, most recent episode (or current) mixed, moderate F31.62 [place] [address] [address] May, Chronic pain G89.29 [place] [address] [address] Apr, [place] [address] [address] Apr, Chronic pain G89.29 [place] [address] [address] Apr, Primary osteoarthritis of right knee M17 .11 [place] [address] [address] Mar, [place] [address] [address] Mar, BMI 50.0-59.9, adult Z68.43 and Bipolar disorder, in partial remission, most recent episode depressed F31.75 [place] [address] [address] Mar, Diabetes E11.9 ; Pure hypercholesterolem ia E78.00 ; Essential hypertension I10 ; Nausea with vomiting, unspecified R11.2 and Headache, unspecified headache type R51 [place] [address] [address] Mar, Bipolar I disorder, most recent episode (or current) mixed, moderate F31.62 [place] [address] [address] Mar, Bipolar I disorder, most recent episode (or current) mixed, moderate F31.62 [place] [address] [address] Mar, Chronic pain G89.29 [place] [address] [address] Mar, Bipolar I disorder, most recent episode (or current) mixed, moderate F31.62 [place] [address] [address] Feb, Bipolar I disorder, most recent episode (or current) mixed, moderate F31.62 [place] [address] [address] Feb, Chronic pain G89.29 [place] [address] [address] Feb, Decubitus ulcer of right foot, stage 3 L 89.893 and BMI 50.0-59.9, adult Z68.43 [place] [address] [address] Feb, Bipolar I disorder, most recent episode (or current) mixed, moderate F31.62 [place] [address] [address] Feb, [place] [address] [address] January, [place] [address] [address] January, Chronic pain G89.29 [place] [address] [address] January, Bipolar I disorder, most recent episode (or current) mixed, moderate F31.62 [place] [address] [address] January, Bipolar I disorder, most recent episode (or current) mixed, moderate F31.62 [place] [address] [address] Dec, Bipolar I disorder, most recent episode (or current) mixed, moderate F31.62 and BMI 50.0-59.9, adult Z68.43 [place] [address] [address] Dec, Bipolar I disorder, most recent episode (or current) mixed, moderate F31.62 [facility] [address] [address] Dec, Chronic pain G89.29 [facility] [address] [address] Dec, DM neuro manif type II E11.49 ; Right fl ank pain R10.9 ; intermediate 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 Z79.891 ; Encounter for medication monitoring Z51.81 and BMI 50.0-59.9, adult Z68.43 [place] [address] [address] Dec, Bipolar I disorder, most recent episode (or current) mixed, moderate F31.62 [place] [address] [address] Nov, Bipolar I disorder, most recent episode (or current) mixed, moderate F31.62 [place] [address] [address] Nov, Chronic pain G89.29 [place] [address] [address] Nov, Bipolar I disorder, most recent episode (or current) mixed, moderate F31.62 [place] [address] [address] Nov, Hypokalemia E87.6 [place] [address] [address] Nov, Bipolar I disorder, most recent episode (or current) mixed, moderate F31.62 [place] [address] [address] Oct, Chronic pain G89.29 [facility] [address] [address] Oct, BMI 50.0-59.9, adult Z68.43 and Bipolar I disorder, most recent episode (or current) mixed, moderate F31.62 [facility] [address] [address] Oct, Bipolar I disorder, most recent episode (or current) mixed, moderate F31.62 [facility] [address] [address] Oct, [facility] [address] [address] Oct, Hypokalemia E87.6 [place] [address] [address] Oct, DM neuro manif type II E11.49 [place] [address] [address] Oct, Bipolar I disorder, most recent episode (or current) mixed, moderate F31.62 [place] [address] [address] Oct, Bipolar I disorder, most recent episode (or current) mixed, moderate F31.62 [place] [address] [address] Oct, Hyperkalemia E87.5 ; Falling R29.6 ; BMI 50.0-59.9, adult Z68.43 and Acute left ankle pain M25.572 [place] [address] [address] Oct, DM neuro manif type II E11.49 [place] [address] [address] Oct, [place] [address] [address] Sep, Chronic pain G89.29 [place] [address] [address] Sep, [place] [address] [address] Sep, Bilateral primary osteoarthritis of knee M17.0 [place] [address] [address] 18 Sep, 2017 Generalized edema R60.1 [place] [address] [address] 16 Sep, 2017 Bipolar I disorder, most recent episode (or current) mixed, moderate F31.62 [place] [address] [address] 15 Sep, 2017 Hypoxia R09.02 ; Other hypervolemia E87. 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 ; Anemia of chronic illness D63.8 and BMI 50.0-59.9, adult Z68.43 [place] [address] [address] Sep, [place] [address] [address] Sep, Bipolar I disorder, most recent episode (or current) mixed, moderate F31.62 [place] [address] [address] 28 Aug, 2017 Chronic pain G89.29 [place] [address] [address] 27 Aug, 2017 Generalized edema R60.1 [place] [address] [address] 18 Aug, 2017 [place] [address] [address] 18 Aug, 2017 [place] [address] [address] 14 Aug, 2017 Bipolar I disorder, most recent episode (or current) mixed, moderate F31.62 [place] [address] [address] 07 Aug, 2017 Bipolar I disorder, most recent episode (or current) mixed, moderate F31.62 [place] [address] [address] Aug, Chronic pain G89.29 [place] [address] [place] [address] Jul, Bipolar I disorder, most recent episode (or current) mixed, moderate F31.62 [place] [address] [address] Jul, Bipolar I disorder, most recent episode (or current) mixed, moderate F31.62 and BMI 60.0-69.9, adult Z68.44 [place] [address] [place] [address] Jul, Bipolar I disorder, most recent episode (or current) mixed, moderate F31.62 [place] [address] [address] Jul, Chronic pain G89.29 [place] [address] [place] [address] Jul, Bipolar I disorder, most recent episode (or current) mixed, moderate F31.62 [place] [address] [address] Jun, Polyneuropathy associated with underlyin g disease G63 and Diabetes E11.[address] [address] Jun, Bipolar I disorder, most recent episode (or current) mixed, moderate F31.62 [place] [address] [address] Jun, Chronic pain G89.29 [place] [address] [place] [address] May, Bipolar I disorder, most recent episode (or current) mixed, moderate F31.62 [place] [address] [place] [address] May, Bipolar I disorder, most recent episode (or current) mixed, moderate F31.62 [place] [address] [address] 20 May, 2017 Diabetic polyneuropathy associated with type 2 diabetes mellitus E11.42 [facility] [address] [address] 18 May, 2017 Bipolar I disorder, most recent episode (or current) mixed, moderate F31.62 [place] [address] [address] 13 May, 2017 Bipolar I disorder, most recent episode (or current) mixed, moderate F31.62 [place] [address] [address] 12 May, 2017 Chronic pain G89.29 [place] [address] [address] 30 Apr, 2017 Bipolar I disorder, most recent episode (or current) mixed, moderate F31.62 [place] [address] [address] Apr, [place] [address] [address] Apr, Chronic pain G89.29 and DM neuro manif t ype II E11.49 [place] [address] [address] Apr, [place] [address] [address] Apr, Bipolar I disorder, most recent episode (or current) mixed, moderate F31.62 [place] [address] [address] 14 Apr, 2017 Chronic pain G89.29 [place] [address] [address] Apr, Iliotibial band syndrome, left M76.32 [facility] [address] [address] Apr, Bipolar I disorder, most recent episode (or current) mixed, moderate F31.62 [facility] [address] [address] Mar, Bipolar I disorder, most recent episode (or current) mixed, moderate F31.62 [facility] [address] [address] Mar, Bipolar I disorder, most recent episode (or current) mixed, moderate F31.62 [facility] [address] [address] Mar, [place] [address] [address] Mar, Bipolar I disorder, most recent episode (or current) mixed, moderate F31.62 [place] [address] [address] Mar, Chronic pain G89.29 [place] [address] [address] Mar, Bipolar I disorder, most recent episode (or current) mixed, moderate F31.62 [place] [address] [address] Mar, Bipolar I disorder, most recent episode (or current) mixed, moderate F31.62 [place] [address] [address] Mar, Acute pain of left knee M25.562 ; Left h ip pain M25.552 ; Generalized edema R60.1 and Tongue swelling R22.0 [place] [address] [address] [address] Mar, [place] [address] [address] Feb, Chronic pain G89.29 [place] [address] [address] Feb, Diabetes E11.9 [place] [address] [address] January, Chronic pain G89.29 [facility] [address] [address] January, [facility] [address] [address] January, Bipolar I disorder, most recent episode (or current) mixed, moderate F31.62 [facility] [address] [address] Dec, Bipolar I disorder, most recent episode (or current) mixed, moderate F31.62 [facility] [address] [address] Dec, Chronic pain G89.29 [facility] [address] [address] Dec, Bipolar I disorder, most recent episode (or current) mixed, moderate F31.62 [place] [address] [address] Dec, Diabetes E11.9 ; Essential hypertension I10 ; Chronic pain G89.29 and Morbid obesity E66.01 [facility] [address] [address] Dec, [facility] [address] [address] Dec, Bipolar I disorder, most recent episode (or current) mixed, moderate F31.62 [facility] [address] [address] Dec, Bipolar I disorder, most recent episode (or current) mixed, moderate F31.62 [facility] [address] [address] Nov, Chronic pain G89.29 [facility] [address] [address] Nov, Bipolar I disorder, most recent episode (or current) mixed, moderate F31.62 [place] [address] [address] Nov, [facility] [address] [address] Nov, Bipolar I disorder, most recent episode (or current) mixed, moderate F31.62 [facility] [address] [address] Nov, Bipolar I disorder, most recent episode (or current) mixed, moderate F31.62 [facility] [address] [address] Nov, [facility] [address] [address] Nov, [facility] [address] [address] Nov, [facility] [address] [address] Oct, Chronic pain G89.29 [facility] [address] [address] Oct, Bipolar I disorder, most recent episode (or current) mixed, moderate F31.62 [facility] [address] [address] Oct, [facility] [address] [address] Oct, Chronic pain G89.29 ; Diabetes E11.9 ; A nxiety F41.9 and 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 [facility] [address] [address] Oct, [facility] [address] [address] Oct, Diabetes E11.9 [facility] [address] [address] Oct, Bipolar I disorder, most recent episode (or current) mixed, moderate F31.62 [facility] [address] [address] Sep, Chronic pain G89.29 [facility] [address] [address] Sep, Chronic pain G89.29 [facility] [address] [address] Aug, Chronic pain G89.29 [facility] [address] [address] Jul, [facility] [address] [address] Jul, Diabetes E11.9 [facility] [address] [address] Jul, Chronic pain G89.29 [facility] [address] [address] Jul, Bipolar I disorder, most recent episode (or current) mixed, moderate F31.62 [place] [address] [address] Jun, Bipolar I disorder, most recent episode (or current) mixed, moderate F31.62 [place] [address] [address] Jun, [facility] [address] [address] Jun, Bipolar I disorder, most recent episode (or current) mixed, moderate F31.62 [place] [address] [address] 30 May, 2016 Insomnia, unspecified type G47.00 [place] [address] [address] May, Bipolar I disorder, most recent episode (or current) mixed, moderate F31.62 [place] [address] [address] 14 May, 2016 [place] [address] [address] May, Bipolar I disorder, most recent episode (or current) mixed, moderate F31.62 [place] [address] [address] May, Diabetes E11.9 and Essential hypertensio n I10 [place] [address] [address] Apr, Chronic pain G89.[address] [address] Apr, Bipolar I disorder, most recent episode (or current) mixed, moderate F31.62 [place] [address] [address] Apr, [place] [address] [address] Apr, [address] [address] Mar, Chronic pain G89.29 ; Headache, unspecif ied headache type R51 ; Neuropathy G62.9 ; Pain of right hip joint M25.551 and Essential hypertension I10 [place] [address] [address] Mar, Chronic pain G89.29 [place] [address] [address] Mar, Bipolar I disorder, most recent episode (or current) mixed, moderate F31.62 [place] [address] [address] Feb, Bipolar I disorder, most recent episode (or current) mixed, moderate F31.62 and Insomnia, unspecified type G47.00 [place] [address] [address] Feb, Chronic pain G89.29 [place] [address] [address] Feb, Bipolar I disorder, most recent episode (or current) mixed, moderate F31.62 [facility] [address] [address] January, Bipolar I disorder, most recent episode (or current) mixed, moderate F31.62 [facility] [address] [address] January, Chronic pain G89.29 [facility] [address] [address] January, Chronic pain G89.29 and Essential hypert ension I10 [facility] [address] [address] January, Bipolar I disorder, most recent episode (or current) mixed, moderate F31.62 [facility] [address] [address] Dec, [facility] [address] [address] Dec, [facility] [address] [address] Dec, [facility] [address] [address] Dec, [facility] [address] [address] Nov, Reactive airway disease J45.909 [facility] [address] [address] Nov, [facility] [address] [address] Nov, [facility] [address] [address] 30 Nov, 2015 [facility] [address] [address] Nov, [facility] [address] [address] Nov, Onychomycosis B35.1 ; Hammertoe M20.40 ; [place] or callus L84 and DM neuro manif type II E11.49 [place] [address] [address] Nov, Chronic pain G89.29 ; Leukocytosis D72.8 29 and Diabetes E11.9 [place] [address] [address] Nov, [place] [address] [address] Oct, Bronchitis J40 [place] [address] [address] Oct, [place] [address] [address] Oct, [address] [address] Oct, Mastoiditis, unspecified laterality H70. 90 and Type 2 diabetes mellitus with complication E11.[address] [address] Sep, [address] [address] Sep, Dysuria R30.0 ; Cough R05 ; Benign prost atic hyperplasia with lower urinary tract symptoms, unspecified morphology N40.1 ; Hypokalemia E87.6 and Eustachian tube dysfunction, unspecified laterality H69.80 [place] [address] [address] Sep, Moderate mixed bipolar I disorder F31.[address] [address] Sep, Hypokalemia E87.[address] [address] Sep, [address] [place] [address] Sep, Upper respiratory tract infection, unspe cified type J06.9 [facility] [address] [address] Aug, [facility] [address] [address] Aug, Dysuria R30.0 [facility] [address] [address] Aug, [facility] [address] [address] Jul, [facility] [address] [address] Jul, [facility] [address] [address] Jul, [facility] [address] [address] Jul, [facility] [address] [address] Jun, [facility] [address] [address] Jun, [facility] [address] [address] Jun, [facility] [address] [address] May, [facility] [address] [address] May, Bipolar I disorder, most recent episode (or current) mixed, moderate 296.62 [facility] [address] [address] 16 May, 2015 [facility] [address] [address] May, Bipolar I disorder, most recent episode (or current) mixed, moderate 296.62 and Major depressive disorder, recurrent episode, severe, specified as with psychotic behavior 296.34 [facility] [address] [address] May, Bipolar I disorder, most recent episode (or current) mixed, moderate 296.62 [facility] [address] [address] May, [facility] [address] [address] Apr, [facility] [address] [address] Apr, [facility] [address] [address] Apr, Unspecified disorder of kidney and urete r 593.9 and Diabetes mellitus type 2, uncontrolled 250.02 [facility] [address] [address] Apr, [facility] [address] [address] Apr, [facility] [address] [address] Apr, [facility] [address] [address] Apr, [facility] [address] [address] Apr, Diabetes mellitus type II, uncontrolled 250.02 [facility] [address] [address] Apr, [facility] [address] [address] Mar, [facility] [address] [address] Mar, [facility] [address] [address] Mar, [facility] [address] [address] Mar, Major depressive disorder, recurrent epi sode, severe, specified as with psychotic behavior 296.34 and Bipolar I disorder, most recent episode (or current) mixed, moderate 296.62 [facility] [address] [address] Mar, Diabetes 250.00 ; Anuria 788.5 ; Nausea and vomiting 787.01 and Diarrhea 787.91 [facility] [address] [address] Mar, Diabetes 250.00 [facility] [address] [address] Mar, [facility] [address] [place] [address] Mar, Diabetes 250.00 [facility] [address] [address] Mar, [facility] [address] [address] Mar, [facility] [address] [address] Mar, [address] [address] Mar, [facility] [address] [address] Mar, Bipolar I disorder, most recent episode (or current) mixed, moderate 296.62 and Major depressive disorder, recurrent episode, severe, specified as with psychotic behavior 296.34 [facility] [address] [place] [address] Mar, Magnesium deficiency 275.2 ; Hypokalemia 276.8 ; Nausea & vomiting 787.01 and Diabetes mellitus type 2, uncontrolled 250.02 [facility] [address] [address] Feb, [facility] [address] [place] [address] Feb, Bipolar I disorder, most recent episode (or current) mixed, moderate 296.[address] [address] Feb, Nausea and vomiting 787.01 ; Left elbow pain 719.42 ; Anuria 788.5 and Diabetes 250.[address] [address] Feb, [place] [id number] Feb, Hypopotassemia 276.8 and Hypokalemia [address] [address] Feb, Hypopotassemia 276.8 and Hypokalemia [address] [address] Feb, Seborrheic keratoses 702.[address] [address] Feb, Hypopotassemia 276.8 and Low magnesium l evels 275.[address] [address] January, [address] [address] January, [address] [address] January, [address] [address] January, Scalp lesion 709.[address] [address] January, [address] [address] Dec, Tear of medial cartilage or meniscus of knee, current 836.0 and 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 [place] [address] 29 Dec, 2014 [facility] [id number] [place] [address] 29 Dec, 2014 [facility] [id number] [place] [address] 28 Dec, 2014 Squamous cell carcinoma, 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 42 [facility] [id number] [place] [address] 14 Dec, 2014 [facility] [id number] [place] [address] 13 Dec, 2014 [facility] [id number] [place] [address] Nov, [facility] [address] [id number] [place] [address] Nov, [facility] [address] [place] [id number] [place] [address] Nov, [facility] [address] [id number] [place] [address] Nov, [facility] [id number] [place] [address] Nov, [facility] [id number] [place] [address] Nov, [facility] [id number] [place] [address] Nov, [facility] [id number] [place] [address] Nov, [facility] [id number] [place] [address] Nov, [facility] [id number] [place] [address] Nov, [facility] [id number] [place] [address] Nov, [facility] [id number] [place] [address] Nov, [facility] [id number] [place] [address] Oct, [facility] [id number] [place] [address] Oct, [facility] [id number] [place] [address] Oct, [facility] [id number] [place] [address] Oct, 2014 [facility] [id number] [place] [address] Oct, [facility] [id number] [place] [address] Oct, [facility] [id number] [place] [address] Oct, [facility] [id number] [place] [address] Oct, 2014 [facility] [id number] [place] [address] Oct, [facility] [id number] [place] [address] Sep, [facility] [id number] [place] [address] Sep, [facility] [id number] [place] [address] Sep, [facility] [id number] [place] [address] Sep, [facility] [id number] [place] [address] Sep, [facility] [id number] [place] [address] Sep, [facility] [id number] [place] [address] Sep, [facility] [id number] [place] [address] Sep, [facility] [id number] [place] [address] Sep, [facility] [id number] [place] [address] Sep, [facility] [id number] [place] [address] Sep, [facility] [id number] [place] [address] 08 Sep, 2014 [facility] [id number] [place] [address] Sep, [facility] [id number] [place] [address] Sep, [facility] [id number] [place] [address] Sep, [facility] [id number] [place] [address] Sep, [facility] [id number] [place] [address] Aug, [facility] [id number] [place] [address] Aug, [facility] [id number] [place] [address] Aug, [facility] [id number] [place] [address] 31 Aug, 2014 [facility] [id number] [place] [address] Aug, [facility] [id number] [place] [address] 31 Aug, 2014 [facility] [id number] [place] [address] 17 Aug, 2014 [facility] [id number] [place] [address] Aug, [facility] [address] [facility] [id number] [place] [address] Aug, [facility] [address] [facility] [id number] [place] [address] Aug, [facility] [address] [id number] [place] [address] Aug, [facility] [address] [facility] [address] Aug, [facility] [address] [facility] [id number] [place] [address] Aug, [facility] [address] [facility] [id number] [place] [address] Aug, [facility] [address] [id number] [place] [address] Aug, [facility] [address] [facility] [id number] [place] [address] Aug, [facility] [address] [facility] [id number] [place] [address] Aug, [facility] [address] [facility] [id number] [place] [address] Aug, [facility] [address] [facility] [id number] [place] [address] Aug, [facility] [address] [facility] [id number] [place] [address] Aug, [facility] [address] [facility] [id number] [place] [address] Aug, [facility] [address] [facility] [id number] [place] [address] Aug, [facility] [address] [facility] [id number] [place] [address] Aug, [facility] [address] [facility] [id number] [place] [address] Aug, [facility] [address] [facility] [id number] [place] [address] Aug, [facility] [address] [facility] [id number] [place] [address] Aug, [facility] [address] [facility] [id number] [place] [address] Aug, [facility] [address] [facility] [id number] [place] [address] Aug, [facility] [address] [facility] [id number] [place] [address] Aug, [facility] [address] [facility] [id number] [place] [address] Aug, [facility] [address] [facility] [id number] [place] [address] Jul, [facility] [address] [facility] [id number] [place] [address] Jul, [facility] [address] [facility] [id number] [place] [address] Jul, [facility] [address] [facility] [id number] [place] [address] Jul, [facility] [address] [facility] [id number] [place] [address] Jul, [facility] [address] [facility] [id number] [place] [address] Jul, [facility] [address] [facility] [id number] [place] [address] Jul, [facility] [address] [facility] [id number] [place] [address] Jul, [facility] [address] [place] [id number] [place] [address] Jul, [facility] [address] [facility] [id number] [place] [address] Jul, [facility] [address] [facility] [id number] [place] [address] Jun, [facility] [address] [facility] [id number] [place] [address] Jun, [facility] [address] [facility] [id number] [place] [address] Jun, [facility] [address] [facility] [id number] [place] [address] 16 Jun, 2014 [facility] [address] [facility] [id number] [place] [address] Jun, [facility] [address] [facility] [id number] [place] [address] Jun, [facility] [address] [facility] [id number] [place] [address] Jun, [facility] [address] [facility] [id number] [place] [address] Jun, [facility] [address] [facility] [id number] [place] [address] Jun, [facility] [address] [facility] [id number] [place] [address] Jun, [facility] [place] [facility] [id number] [place] [address] 29 Sep, 2013 [facility] [place] [facility] [id number] [place] [address] 29 Sep, 2013 [facility] [place] [facility] [id number] [place] [address] 26 Sep, 2013 [facility] [place] [facility] [id number] [place] [address] 26 Sep, 2013 [facility] [place] [facility] [id number] [place] [address] 17 Sep, 2013 [facility] [place] [facility] [id number] [place] [address] 17 Sep, 2013 [facility] [place] [facility] [id number] [place] [address] 15 Sep, 2013 [facility] [place] [facility] [id number] [place] [address] 15 May, 2013 [facility] [place] [facility] [address] [id number] [facility] [place] [address] 15 May, 2013 [facility] [place] [facility] [address] [facility] [id number] [facility] [place] [address] 15 May, 2013 [facility] [place] [facility] [address] [facility] [id number] [facility] [place] [address] 10 May, 2013 [facility] [place] [facility] [address] [id number] [facility] [place] [address] 10 May, 2013 [facility] [place] [facility] [address] [facility] [id number] [facility] [place] [address] 09 May, 2013 [facility] [place] [facility] [address] [id number] [facility] [place] [address] May, 2013 [facility] [place] [facility] [id number] [place] [address] May, 2013 [facility] [place] [facility] [id number] [facility] [place] [address] May, 2013 [facility] [place] [facility] [address] [facility] [id number] [facility] [place] [address] Apr, [facility] [place] [facility] [address] [id number] [facility] [place] [address] Apr, [facility] [place] [facility] [address] [facility] [id number] [place] [address] Apr, [facility] [place] [facility] [address] [id number] [place] [address] Apr, 2013 [facility] [place] [facility] [address] [facility] [id number] [facility] [place] [address] Apr, 2013 [facility] [place] [facility] [address] [id number] [place] [address] Apr, [facility] [place] [facility] [address] [facility] [id number] [place] [address] Apr, 2013 [facility] [place] [facility] [id number] [place] [address] Apr, 2013 [facility] [place] [facility] [address] [id number] [place] [address] Apr, [facility] [place] [facility] [address] [id number] [facility] [place] [address] Apr, [facility] [place] [facility] [address] [facility] [id number] [place] [address] Apr, [facility] [place] [facility] [id number] [place] [address] Apr, [facility] [place] [facility] [address] [facility] [id number] [place] [address] Apr, [facility] [place] [facility] [address] [id number] [place] [address] Apr, [facility] [place] [facility] [id number] [place] [address] Apr, [facility] [place] [facility] [id number] [place] [address] Mar, [facility] [place] [facility] [id number] [place] [address] Mar, [facility] [place] [facility] [address] [id number] [place] [address] Mar, [facility] [place] [facility] [id number] [place] [address] Mar, [facility] [place] [facility] [id number] [place] [address] Mar, [facility] [place] [facility] [id number] [place] [address] Mar, [facility] [place] [facility] [address] [facility] [id number] [place] [address] Mar, [facility] [place] [facility] [id number] [place] [address] Mar, [facility] [place] [facility] [id number] [place] [address] Mar, [facility] [place] [facility] [id number] [place] [address] Mar, [facility] [place] [facility] [address] [id number] [place] [address] Mar, 2013 [facility] [place] [facility] [address] [facility] [id number] [place] [address] Mar, 2013 [facility] [place] [facility] [address] [facility] [id number] [place] [address] Mar, 2013 [facility] [place] [facility] [id number] [place] [address] Mar, 2013 [facility] [place] [facility] [address] [facility] [id number] [place] [address] Mar, 2013 [facility] [place] [facility] [id number] [place] [address] Mar, 2013 [facility] [place] [facility] [id number] [place] [address] Mar, 2013 [facility] [place] [facility] [address] [id number] [place] [address] Mar, 2013 [facility] [place] [facility] [id number] [place] [address] Feb, [facility] [place] [facility] [id number] [place] [address] Feb, [facility] [place] [facility] [address] [facility] [id number] [place] [address] Feb, [facility] [place] [facility] [id number] [place] [address] Feb, [facility] [place] [facility] [id number] [place] [address] Feb, [facility] [place] [facility] [address] [facility] [id number] [place] [address] Feb, [facility] [place] [facility] [id number] [place] [address] Feb, [facility] [place] [facility] [id number] [place] [address] Feb, [facility] [place] [facility] [address] [id number] [place] [address] Feb, [facility] [place] [facility] [address] [facility] [id number] [place] [address] Feb, [facility] [place] [facility] [address] [facility] [id number] [facility] [place] [address] Feb, [facility] [place] [facility] [id number] [place] [address] Feb, [facility] [place] [facility] [id number] [place] [address] Feb, [facility] [place] [facility] [address] [facility] [id number] [facility] [place] [address] Feb, [facility] [place] [facility] [id number] [place] [address] January, [facility] [place] [facility] [id number] [place] [address] January, [facility] [place] [facility] [id number] [facility] [place] [address] January, [facility] [place] [facility] [address] [facility] [id number] [place] [address] January, [facility] [place] [facility] [id number] [place] [address] January, [facility] [place] [facility] [id number] [place] [address] January, [facility] [place] [facility] [id number] [place] [address] January, [facility] [place] [facility] [address] [facility] [id number] [place] [address] January, [facility] [place] [facility] [address] [id number] [place] [address] January, [facility] [place] [facility] [id number] [place] [address] January, [facility] [place] [facility] [id number] [place] [address] January, [facility] [place] [facility] [id number] [place] [address] January, [facility] [place] [facility] [address] [id number] [place] [address] January, [facility] [place] [facility] [id number] [place] [address] January, [facility] [place] [facility] [id number] [place] [address] Dec, [facility] [place] [facility] [address] [facility] [id number] [place] [address] Dec, [facility] [place] [facility] [address] [id number] [place] [address] Dec, [facility] [place] [facility] [address] [id number] [place] [address] Dec, [facility] [place] [facility] [id number] [place] [address] Dec, [facility] [place] [facility] [id number] [place] [address] Dec, [facility] [place] [facility] [id number] [place] [address] Dec, [facility] [place] [facility] [id number] [place] [address] Dec, [facility] [place] [facility] [id number] [place] [address] Dec, [facility] [place] [facility] [id number] [place] [address] Dec, [facility] [place] [facility] [id number] [place] [address] Nov, [facility] [place] [facility] [address] [id number] [place] [address] Nov, [facility] [place] [facility] [id number] [place] [address] Nov, [facility] [place] [facility] [id number] [place] [address] Nov, [facility] [place] [facility] [address] [facility] [id number] [place] [address] 08 Nov, 2013 [facility] [place] [facility] [id number] [place] [address] Nov, [facility] [place] [facility] [id number] [place] [address] Nov, [facility] [place] [facility] [id number] [place] [address] Nov, [facility] [place] [facility] [id number] [place] [address] Nov, [facility] [place] [facility] [id number] [place] [address] Nov, [facility] [place] [facility] [id number] [place] [address] Oct, [facility] [place] [facility] [id number] [place] [address] Oct, [facility] [place] [facility] [id number] [place] [address] Oct, [facility] [place] [facility] [id number] [place] [address] Oct, [facility] [place] [facility] [id number] [place] [address] Oct, [facility] [place] [facility] [id number] [place] [address] Oct, [facility] [place] [facility] [id number] [place] [address] 14 Oct, 2013 [facility] [place] [facility] [id number] [place] [address] Oct, [facility] [place] [facility] [id number] [place] [address] 05 Oct, 2013 [facility] [place] [facility] [id number] [place] [address] 05 Oct, 2013 [facility] [place] [facility] [id number] [place] [address] 04 Oct, 2013 [facility] [place] [facility] [id number] [place] [address] Oct, [facility] [place] [facility] [id number] [place] [address] Oct, [facility] [place] [facility] [id number] [place] [address] Oct, [facility] [place] [facility] [id number] [place] [address] Sep, [facility] [place] [facility] [id number] [place] [address] Sep, [facility] [place] [facility] [id number] [place] [address] 15 Sep, 2013 [facility] [place] [facility] [id number] [place] [address] 15 Sep, 2013 [facility] [place] [facility] [id number] [place] [address] 14 Sep, 2013 [facility] [place] [facility] [id number] [place] [address] Sep, [facility] [place] [facility] [id number] [place] [address] Sep, [facility] [place] [facility] [id number] [place] [address] 14 Sep, 2013 [facility] [place] [facility] [id number] [place] [address] 08 Sep, 2013 [facility] [place] [facility] [id number] [place] [address] 08 Sep, 2013 [facility] [place] [facility] [id number] [place] [address] Aug, [facility] [place] [facility] [id number] [place] [address] Aug, [facility] [place] [facility] [id number] [place] [address] Jul, [facility] [place] [facility] [id number] [place] [address] Jul, [facility] [place] [facility] [id number] [place] [address] Jul, [facility] [place] [facility] [id number] [place] [address] Jul, [facility] [place] [facility] [id number] [place] [address] Jul, [facility] [place] [facility] [id number] [place] [address] Jul, [facility] [place] [facility] [id number] [place] [address] Jul, [facility] [place] [facility] [id number] [place] [address] Jul, [facility] [place] [facility] [id number] [place] [address] Jul, [facility] [place] [facility] [id number] [place] [address] Jul, [facility] [place] [facility] [id number] [place] [address] Jul, [facility] [place] [facility] [id number] [place] [address] Jul, [facility] [place] [facility] [id number] [place] [address] Jul, [facility] [place] [facility] [id number] [place] [address] Jul, [facility] [place] [facility] [id number] [place] [address] Jul, [facility] [place] [facility] [id number] [place] [address] Jul, [facility] [place] [facility] [id number] [place] [address] Jul, [facility] [place] [facility] [id number] [place] [address] Jul, 2012 [facility] [place] [facility] [id number] [place] [address] Jul, 2012 [facility] [place] [facility] [id number] [place] [address] Jun, 2012 [facility] [place] [facility] [id number] [place] [address] Jun, 2012 [facility] [place] [facility] [id number] [place] [address] Jun, 2012 [facility] [place] [facility] [id number] [place] [address] Jun, 2012 [facility] [place] [facility] [id number] [place] [address] Jun, 2012 [facility] [place] [facility] [id number] [place] [address] Jun, 2012 [facility] [place] [facility] [id number] [place] [address] Jun, 2012 [facility] [place] [facility] [id number] [place] [address] Jun, [facility] [place] [facility] [id number] [place] [address] Jun, [facility] [place] [facility] [id number] [place] [address] Jun, [facility] [place] [facility] [id number] [place] [address] Jun, 2012 [facility] [place] [facility] [id number] [place] [address] 26 May, 2012 [facility] [place] [facility] [id number] [place] [address] 25 Sep, 2012 [facility] [place] [facility] [id number] [place] [address] 19 Sep, 2012 [facility] [place] [facility] [id number] [place] [address] 17 Sep, 2012 [facility] [place] [facility] [address] [id number] [facility] [place] [address] 11 May, 2012 [facility] [place] [facility] [address] [id number] [facility] [place] [address] May, 2012 [facility] [place] [facility] [address] [facility] [id number] [facility] [place] [address] May, [facility] [place] [facility] [id number] [place] [address] May, [facility] [place] [facility] [address] [facility] [id number] [facility] [place] [address] Apr, [facility] [place] [facility] [address] [facility] [id number] [facility] [place] [address] Apr, [facility] [place] [facility] [id number] [place] [address] Apr, [facility] [place] [facility] [id number] [place] [address] Apr, [facility] [place] [facility] [id number] [place] [address] Apr, [facility] [place] [facility] [id number] [place] [address] Mar, [facility] [place] [facility] [id number] [place] [address] Mar, [facility] [place] [facility] [id number] [place] [address] Mar, [facility] [place] [facility] [id number] [place] [address] Mar, [facility] [place] [facility] [address] [facility] [id number] [place] [address] Mar, [facility] [place] [facility] [id number] [place] [address] Mar, [facility] [place] [facility] [id number] [place] [address] Mar, [facility] [place] [facility] [id number] [place] [address] Mar, [facility] [id number] [place] [address] Feb, [facility] [id number] [place] [address] Feb, [facility] [place] [facility] [id number] [place] [address] January, [facility] [id number] [place] [address] January, [facility] [place] [facility] [id number] [place] [address] Dec, [facility] [id number] [place] [address] Dec, [facility] [place] [facility] [id number] [place] [address] Nov, [facility] [id number] [place] [address] Nov, [facility] [place] [facility] [id number] [place] [address] Nov, [facility] [place] [facility] [id number] [place] [address] Nov, [facility] [place] [facility] [id number] [place] [address] Oct, [facility] [place] [facility] [id number] [place] [address] Oct, [facility] [place] [facility] [id number] [place] [address] Oct, [facility] [place] [facility] [id number] [place] [address] Oct, [facility] [place] [facility] [id number] [place] [address] 16 Oct, 2012 [facility] [place] [facility] [id number] [place] [address] 14 Oct, 2012 [facility] [place] [facility] [id number] [place] [address] 08 Oct, 2012 [facility] [place] [facility] [id number] [place] [address] 07 Oct, 2012 [facility] [place] [facility] [id number] [place] [address] Oct, [facility] [place] [facility] [id number] [place] [address] Sep, [facility] [place] [facility] [id number] [place] [address] Sep, [facility] [place] [facility] [id number] [place] [address] Sep, [facility] [place] [facility] [id number] [place] [address] Sep, [facility] [place] [facility] [id number] [place] [address] Sep, [facility] [place] [facility] [id number] [place] [address] Sep, [facility] [place] [facility] [id number] [place] [address] Sep, [facility] [place] [facility] [id number] [place] [address] Sep, [facility] [place] [facility] [id number] [place] [address] Aug, [facility] [place] [facility] [id number] [place] [address] Aug, [facility] [place] [facility] [id number] [place] [address] Aug, [facility] [place] [facility] [id number] [place] [address] Aug, [facility] [place] [facility] [id number] [place] [address] Aug, [facility] [place] [facility] [id number] [place] [address] Aug, [facility] [place] [facility] [id number] [place] [address] Aug, [facility] [place] [facility] [id number] [place] [address] Aug, [facility] [place] [facility] [id number] [place] [address] Jul, [facility] [place] [facility] [id number] [place] [address] Jul, [facility] [place] [facility] [id number] [place] [address] Jul, [facility] [place] [facility] [id number] [place] [address] Jul, [facility] [place] [facility] [id number] [place] [address] Jul, [facility] [place] [facility] [id number] [place] [address] Jul, [facility] [place] [facility] [id number] [place] [address] Jun, [facility] [place] [facility] [id number] [place] [address] Jun, [facility] [place] [facility] [id number] [place] [address] Jun, [facility] [place] [facility] [id number] [place] [address] Jun, [facility] [place] [facility] [id number] [place] [address] Jun, [facility] [place] [facility] [id number] [place] [address] Jun, [facility] [place] [facility] [id number] [place] [address] Jun, [facility] [place] [facility] [id number] [place] [address] Jun, [facility] [place] [facility] [id number] [place] [address] Jun, [facility] [place] [facility] [address] [facility] [id number] [place] [address] 26 May, 2012 [facility] [place] [facility] [id number] [place] [address] 24 May, 2012 [facility] [place] [facility] [id number] [place] [address] May, [facility] [place] [facility] [id number] [place] [address] Apr, [facility] [place] [facility] [id number] [place] [address] Apr, [facility] [place] [facility] [id number] [place] [address] Apr, [facility] [place] [facility] [id number] [place] [address] Apr, [facility] [place] [facility] [id number] [place] [address] Apr, [facility] [place] [facility] [id number] [place] [address] Apr, [facility] [place] [facility] [id number] [place] [address] Mar, [facility] [place] [facility] [id number] [place] [address] Mar, [facility] [place] [facility] [id number] [place] [address] Mar, [facility] [place] [facility] [id number] [place] [address] Mar, [facility] [place] [facility] [id number] [place] [address] Feb, [facility] [place] [facility] [id number] [place] [address] Feb, [facility] [place] [facility] [id number] [place] [address] Feb, [facility] [place] [facility] [id number] [place] [address] Feb, [facility] [place] [facility] [id number] [place] [address] Feb, [facility] [place] [facility] [id number] [place] [address] January, [facility] [place] [facility] [id number] [place] [address] January, [facility] [id number] [place] [address] January, [facility] [id number] [place] [address] January, [facility] [id number] [place] [address] January, [facility] [id number] [place] [address] January, [facility] [id number] [place] [address] Dec, [facility] [id number] [place] [address] Dec, [facility] [id number] [place] [address] Dec, [facility] [id number] [place] [address] Dec, [facility] [id number] [place] [address] Dec, [facility] [id number] [place] [address] Nov, [facility] [id number] [place] [address] 14 Nov, 2011 [facility] [id number] [place] [address] Nov, [facility] [id number] [place] [address] Nov, [facility] [id number] [place] [address] 29 Oct, 2011 [facility] [id number] [place] [address] Oct, [facility] [id number] [place] [address] Oct, [facility] [id number] [place] [address] Oct, [facility] [id number] [place] [address] 08 Oct, 2011 [facility] [id number] [place] [address] Sep, [facility] [id number] [place] [address] Sep, [facility] [id number] [place] [address] Sep, [facility] [id number] [place] [address] Sep, [facility] [id number] [place] [address] Sep, [facility] [id number] [place] [address] Sep, [facility] [id number] [place] [address] Aug, [facility] [id number] [place] [address] Aug, [facility] [id number] [place] [address] Aug, [facility] [id number] [place] [address] Jul, [facility] [id number] [place] [address] Jul, [facility] [id number] [place] [address] 10 Jul, 2011 [facility] [id number] [place] [address] Jul, [facility] [id number] [place] [address] Jun, [facility] [id number] [place] [address] Jun, [facility] [id number] [place] [address] Jun, [facility] [id number] [place] [address] Jun, [facility] [id number] [place] [address] Jun, [facility] [id number] [place] [address] Jun, [facility] [id number] [place] [address] Mar, [facility] [id number] [place] [address] Dec, [facility] [id number] [place] [address] Dec, [facility] [id number] [place] [address] Nov, [facility] [id number] [place] [address] 16 Nov, 2010 [facility] [id number] [place] [address] Sep, [facility] [id number] [place] [address] Aug, [facility] [id number] [place] [address] Aug, [facility] [id number] [place] [address] Aug, [facility] [id number] [place] [address] 29 Aug, 2010 [facility] [id number] [place] [address] 27 Aug, 2010 [facility] [id number] [place] [address] 14 Aug, 2010 [facility] [id number] [place] [address] 08 Aug, 2010 [facility] [id number] [place] [address] 08 Aug, 2010 [facility] [id number] [place] [address] 07 Aug, 2010 [facility] [id number] [place] [address] 06 Aug, 2010 [facility] [id number] [place] [address] Aug, [facility] [id number] [place] [address] Aug, [facility] [id number] [place] [address] Jul, [facility] [id number] [place] [address] Jul, [facility] [id number] [place] [address] 30 Jul, 2010 [facility] [id number] [place] [address] 17 Jul, 2010 [facility] [id number] [place] [address] Jul, [facility] [id number] [place] [address] Jul, [facility] [id number] [place] [address] 24 Jun, 2010 [facility] [id number] [place] [address] 19 Jun, 2010 [facility] [address] [facility] [id number] [place] [address] 19 Jun, 2010 [facility] [id number] [place] [address] 13 Jun, 2010 [facility] [id number] [place] [address] 16 Apr, 2010 [facility] [id number] [place] [address] Mar, [facility] [address] [facility] [id number] [place] [address] Feb, [facility] [id number] [place] [address] January, [facility] [id number] [place] [address] 15 Dec, 2009 [facility] [id number] [place] [address] Nov, [facility] [id number] [place] [address] Aug, [facility] [id number] [place] [address] Aug, [facility] [id number] [place] [address] Aug, [facility] [id number] [place] [address] Jul, [facility] [id number] [place] [address] Jul, [facility] [id number] [place] [address] Jul, [facility] [id number] [place] [address] 30 Jun, 2009 [facility] [id number] [place] [address] 29 Jun, 2009 [facility] [id number] [place] [address] Jun, [facility] [id number] [place] [address] Jun, [facility] [id number] [place] [address] Jun, [facility] [id number] [place] [address] Jun, [facility] [address] [address] Apr, [facility] [address] [address] Apr, [facility] [address] [address] Feb, [facility] [address] [address] January, [facility] [id number] [place] [address] Dec, IMMUNIZATIONS No Known Immunizations SOCIAL HISTORY Never Assessed REASON FOR VISIT PLAN OF CARE VITAL SIGNS Height 67 in 2013-11-21 Weight 345 lbs 2013-11-21 Temperature 97.8 degrees Fahrenheit 2013-11-21 Heart Rate 80 bpm 2013-11-21 Respiratory Rate 32 2013-11-21 Blood pressure systolic 140 mmHg 2013-11-21 Blood pressure diastolic 78 mmHg 2013-11-21 MEDICATIONS Unknown Medications RESULTS No Results PROCEDURES [...] Medical History skin cancer-basal cell R hoahaoism (removed ) Medical History Arthritis Medical History [...] 2009 ([facility]), 2013 ([facility] ) Surgical History heart cath: [...] History inability to urinate 09/16/15 Hospitalization History [facility] inpatient mental health ea rly 2000's Hospitalization History hyperkalemia 10/2017 Hospitalization History fluid in lung
[2020-03-01] MEDS ORDERED: meTOprolol 5 MG/5 ML (LOPRESSOR) VIAL ONE (16:41)
--- OUTSIDE RECORDS SUMMARY | 2020-03-01 16:41 | XMS REPORT ---
Author Author Michele Verduzco Doctor Organization [facility] Address Unknown Phone Unavailable Care Team Providers Care Falsework Builder Name Role Phone Migration, Doctor Unavailable Unavailable PROBLEMS Type Condition ICD9-CM Code SCB75-IO Code Onset Dates Condition S tatus SNOMED Code Problem DM neuro manif type II E11.49 Active 34030149 Problem Chronic pain G89.29 Active 4952657 1 Problem Diabetes E11.9 Active 42385475 Problem Reactive airway disease J45.909 Active 548452132425 Problem Leukocytosis D72.829 Active 3937740 06 Problem Insomnia, unspecified type G47.00 Act sharon 542819424 Problem Bipolar I disorder, most recent episode (or curr ent) mixed, moderate F31.62 Active 54386847 Problem Primary osteoarthritis of right knee M17.11 Active 962244094421802 Problem Cough R05 Active 61236543 Problem Pure hypercholesterolemia E78.00 Acti ve 361124345 Problem Dysuria R30.0 Active 11522544 Problem Benign prostatic hyperplasia with lower urinary tract symptoms, unspecified morphology N40.1 Active 24113 6007 Problem Eustachian tube dysfunction, unspecified laterality H69.80 Active 34507789 Problem Polyneuropathy associated with underlying disease G63 Active 957731019 Problem Diabetic polyneuropathy associated with type 2 d iabetes mellitus E11.42 Active 80391197 Problem Anemia of chronic illness D63.8 Acti ve 408354595 Problem Chronic lymphocytic leukemia C91.10 A ctive 84623903 Problem Bilateral primary osteoarthritis of knee M17.0 Active 437173670 Problem 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 Active 124804695 Problem Eye exam abnormal R93.8 Active 16 7105851 Problem Retinal edema H35.81 Active 918361 6 Problem Lymphocytosis D72.820 Active 881025 09 Problem Bipolar disorder, in partial remission, most rec ent episode depressed F31.75 Active 63505302 Problem Hypokalemia E87.6 Active 56247504 Problem Falling R29.6 Active 261297374 Problem Pressure ulcer of other site, stage 3 L89.893 Active 424043591 Problem Other iron deficiency anemia D50.8 A ctive 89071863 Problem Mild cognitive impairment G31.84 Acti ve 804115791 Problem Skin cancer C44.90 Active 76192482 7 Problem care home (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 Z79.4 Active 472178129 Problem Morbid obesity E66.01 Active 04016 6002 Problem Mood disorder F39 Active 884708 05 Problem Anxiety F41.9 Active 66333765 Problem Essential hypertension I10 Active 98568948 Problem Bipolar disorder F31.9 Active 137 13166 Problem Chronic diastolic (congestive) heart failure I50.3 2 Active 924976116 Problem Psychophysiological insomnia F51.04 A ctive 258475614 Problem Type 2 diabetes mellitus with diabetic neuropathy, uns pecified E11.40 Active 95938573 ALLERGIES No Information ENCOUNTERS Encounter Location Date Diagnosis [place] [address] [address] Dec, [place] [address] [address] Dec, [place] [address] [address] Nov, [place] [address] [address] Nov, [place] [address] [address] Nov, Syncope, unspecified syncope type R55 [place] [address] [address] Nov, Mood disorder F39 [place] [address] [address] Oct, Chronic pain G89.29 [place] [address] [address] Oct, [place] [address] [address] Oct, Mood disorder F39 [place] [address] [address] 10 Oct, 2019 [facility] [address] [facility] [place] [address] 10 Oct, 2019 Bipolar disorder, in partial remission, most recent episode depressed F31.75 and Mild cognitive impairment G31.84 [facility] [address] [facility] [place] [address] 04 Oct, 2019 Mood disorder F39 [facility] [address] [facility] [place] [address] Sep, [facility] [address] [facility] [place] [address] Sep, Mood disorder F39 [facility] [address] [facility] [place] [address] Sep, Bipolar disorder, in partial remission, most recent episode depressed F31.75 and Mild cognitive impairment G31.84 [facility] [address] [place] [id number] [place] [address] Sep, Mood disorder F39 [facility] [address] [facility] [place] [address] Sep, [facility] [address] [place] [id number] [place] [address] Sep, Mood disorder F39 [facility] [address] [facility] [place] [address] Sep, [facility] [address] [facility] [place] [address] Aug, Mood disorder F39 [facility] [address] [facility] [place] [address] Aug, [facility] [address] [place] [id number] [place] [address] Aug, [facility] [address] [facility] [place] [address] Aug, [facility] [address] [facility] [place] [address] Aug, [facility] [address] [place] [id number] [place] [address] Aug, [facility] [address] [place] [id number] [place] [address] Aug, [facility] [address] [address] Aug, [facility] [address] [address] Aug, Essential hypertension I10 [facility] [address] [address] Aug, Bipolar disorder, in partial remission, most recent episode depressed F31.75 and Mild cognitive impairment G31.84 [facility] [address] [address] Aug, Mood disorder F39 [facility] [address] [address] Aug, [facility] [address] [address] Aug, Bipolar disorder, in partial remission, most recent episode depressed F31.75 and Mild cognitive impairment G31.84 [facility] [address] [address] Jul, Bipolar disorder, in partial remission, most recent episode depressed F31.75 and Mild cognitive impairment G31.84 [facility] [address] [address] Jul, Psychophysiological insomnia F51.04 [facility] [address] [place] [id number] [place] [address] Jul, [facility] [address] [address] Jul, [facility] [address] [address] Jul, [facility] [address] [address] Jul, [place] [address] [place] [id number] [place] [address] Jul, [place] [address] [address] Jul, [place] [address] [address] Jul, Bipolar disorder, in partial remission, most recent episode depressed F31.75 and Mild cognitive impairment G31.84 [place] [address] [address] Jul, Chronic pain G89.29 ; Diabetes E11.9 ; E ssential hypertension I10 ; Ill feeling R68.89 ; Local infection of the skin and subcutaneous tissue, unspecified L08.9 and Other injury of unspecified body region, initial encounter T14.8XXA [place] [address] [address] Jun, Bipolar disorder, in partial remission, most recent episode depressed F31.75 and Mild cognitive impairment G31.84 [place] [address] [address] Jun, [address] [address] Jun, Bipolar disorder, in partial remission, most recent episode depressed F31.75 and Mild cognitive impairment G31.84 [place] [address] [address] Jun, Psychophysiological insomnia F51.04 [place] [address] [address] Jun, Psychophysiological insomnia F51.04 ; Ch ronic pain G89.29 ; Bipolar I disorder, most recent episode (or current) mixed, moderate F31.62 ; 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 ; Polyneuropathy associated with underlying disease G63 ; Type 2 diabetes mellitus with diabetic neuropathy, unspecified E11.40 ; 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.4 and Hyperglycemia R73.9 [place] [address] [address] Jun, Bipolar disorder, in partial remission, most recent episode depressed F31.75 and Mild cognitive impairment G31.84 [facility] [address] [address] Jun, [place] [address] [address] Jun, Bipolar disorder F31.9 [facility] [address] [address] May, Bipolar disorder, in partial remission, most recent episode depressed F31.75 and Mild cognitive impairment G31.84 [place] [address] [address] May, [place] [address] [address] Apr, Chronic pain G89.29 and Bipolar disorder F31.9 [place] [address] [address] Mar, Bipolar disorder F31.9 and Chronic pain G89.29 [place] [address] [address] Feb, Bipolar disorder F31.9 [place] [address] [address] Feb, Cellulitis of right upper extremity L03. 113 and Skin abrasion T14.8XXA [place] [address] [address] Feb, Bipolar disorder, in partial remission, most recent episode depressed F31.75 and Mild cognitive impairment G31.84 [place] [address] [address] Feb, Chronic pain G89.29 [place] [address] [address] Feb, Bipolar disorder, in partial remission, most recent episode depressed F31.75 and Mild cognitive impairment G31.84 [facility] [address] [place] [id number] [place] [address] January, Bipolar disorder, in partial remission, most recent episode depressed F31.75 and Mild cognitive impairment G31.84 [facility] [address] [place] [id number] [place] [address] January, Chronic pain G89.29 and Bipolar disorder F31.9 [facility] [address] [address] January, Bipolar disorder, in partial remission, most recent episode depressed F31.75 and Mild cognitive impairment G31.84 [facility] [address] [address] Dec, [facility] [address] [address] Dec, Chronic pain G89.29 and Bipolar disorder F31.9 [facility] [address] [address] Dec, Edema of both lower extremities R60.0 [facility] [address] [address] Dec, Bipolar disorder F31.9 [facility] [address] [address] Dec, Bipolar disorder, in partial remission, most recent episode depressed F31.75 and Mild cognitive impairment G31.84 [facility] [address] [place] [id number] [place] [address] Nov, [facility] [address] [address] Nov, Chronic pain G89.29 [facility] [address] [address] Nov, Bipolar disorder, in partial remission, most recent episode depressed F31.75 and Mild cognitive impairment G31.84 [facility] [address] [address] Nov, Bipolar disorder F31.[address] [address] 04 Nov, 2018 Encounter for Medicare annual [...] unspecified morphology N40.1 and Essential hypertension I10 [address] [address] Oct, Chronic pain G89.[address] [address] Oct, Diabetes E11.[address] [address] Oct, Bipolar I disorder, most recent episode (or current) mixed, moderate F31.62 and Mild cognitive impairment G31.[address] [address] Oct, Bipolar I disorder, most recent episode (or current) mixed, moderate F31.62 and Mild cognitive impairment G31.[address] [address] Sep, Bipolar I disorder, most recent episode (or current) mixed, moderate F31.62 and Mild cognitive impairment G31.[address] [address] Sep, [address] [address] Sep, Diabetes E11.9 ; Hypoxia R09.02 ; Hyperg lycemia R73.9 ; Therapeutic drug monitoring Z51.81 ; BMI 50.0-59.9, adult Z68.43 and Skin cancer C44.90 [place] [address] [address] Sep, Chronic pain G89.29 [facility] [address] [address] Sep, Bipolar I disorder, most recent episode (or current) mixed, moderate F31.62 [place] [address] [address] Sep, [place] [address] [address] Sep, [place] [address] [address] Aug, Chronic pain G89.29 [place] [address] [address] Aug, Bipolar I disorder, most recent episode (or current) mixed, moderate F31.62 [place] [address] [address] Aug, Bipolar I disorder, most recent episode (or current) mixed, moderate F31.62 and Mild cognitive impairment G31.84 [place] [address] [address] Jul, [place] [address] [address] Jul, Chronic pain G89.29 [facility] [address] [address] Jul, Bipolar I disorder, most recent episode (or current) mixed, moderate F31.62 and Mild cognitive impairment G31.84 [place] [address] [address] Jul, Bipolar I disorder, most recent episode (or current) mixed, moderate F31.62 and MCI (mild cognitive impairment) G31.84 [place] [address] [place] [id number] [place] [address] Jul, [facility] [address] [address] Jul, [facility] [address] [place] [id number] [place] [address] Jul, Bipolar I disorder, most recent episode (or current) mixed, moderate F31.62 [facility] [address] [place] [id number] [place] [address] Jul, Chronic pain G89.29 [facility] [address] [address] Jun, Bipolar I disorder, most recent episode (or current) mixed, moderate F31.62 [facility] [address] [place] [id number] [place] [address] Jun, Pre-procedure lab exam Z01.812 [place] [address] [place] [address] [place] [address] Jun, [facility] [address] [facility] [place] [id number] Jun, [place] [address] [address] Jun, [place] [address] [place] [address] [place] [address] Jun, Forgetfulness R68.89 ; Pre-syncope R55 ; Localized edema R60.0 ; Other iron deficiency anemia D50.8 and BMI 50.0-59.9, adult Z68.43 [facility] [address] [address] Jun, Chronic pain G89.29 [facility] [address] [address] Jun, Chronic pain G89.29 [facility] [address] [address] Jun, Bipolar I disorder, most recent episode (or current) mixed, moderate F31.62 [place] [address] [address] 07 May, 2018 Chronic pain G89.29 [place] [address] [address] Apr, [place] [address] [address] Apr, Chronic pain G89.29 [place] [address] [address] Apr, Primary osteoarthritis of right knee M17 .[address] [address] Mar, [place] [address] [address] Mar, BMI 50.0-59.9, adult Z68.43 and Bipolar disorder, in partial remission, most recent episode depressed F31.75 [place] [address] [address] Mar, Diabetes E11.9 ; Pure hypercholesterolem ia E78.00 ; Essential hypertension I10 ; Nausea with vomiting, unspecified R11.2 and Headache, unspecified headache type R51 [place] [address] [address] Mar, Bipolar I disorder, most recent episode (or current) mixed, moderate F31.62 [place] [address] [address] Mar, Bipolar I disorder, most recent episode (or current) mixed, moderate F31.62 [place] [address] [address] Mar, Chronic pain G89.29 [place] [address] [address] Mar, Bipolar I disorder, most recent episode (or current) mixed, moderate F31.62 [place] [address] [address] 18 Feb, 2018 Bipolar I disorder, most recent episode (or current) mixed, moderate F31.62 [place] [address] [address] 14 Feb, 2018 Chronic pain G89.29 [place] [address] [address] Feb, Decubitus ulcer of right foot, stage 3 L 89.893 and BMI 50.0-59.9, adult Z68.43 [place] [address] [address] 04 Feb, 2018 Bipolar I disorder, most recent episode (or current) mixed, moderate F31.62 [place] [address] [address] Feb, [place] [address] [address] January, [place] [address] [address] January, Chronic pain G89.29 [place] [address] [address] January, Bipolar I disorder, most recent episode (or current) mixed, moderate F31.62 [place] [address] [address] January, Bipolar I disorder, most recent episode (or current) mixed, moderate F31.62 [place] [address] [address] Dec, Bipolar I disorder, most recent episode (or current) mixed, moderate F31.62 and BMI 50.0-59.9, adult Z68.43 [place] [address] [address] Dec, Bipolar I disorder, most recent episode (or current) mixed, moderate F31.62 [place] [address] [address] Dec, Chronic pain G89.29 [place] [address] [address] Dec, DM neuro manif type II E11.49 ; Right fl ank pain R10.9 ; care home 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 Z79.891 ; Encounter for medication monitoring Z51.81 and BMI 50.0-59.9, adult Z68.43 [place] [address] [address] Dec, Bipolar I disorder, most recent episode (or current) mixed, moderate F31.62 [place] [address] [address] Nov, Bipolar I disorder, most recent episode (or current) mixed, moderate F31.62 [place] [address] [address] Nov, Chronic pain G89.29 [place] [address] [address] Nov, Bipolar I disorder, most recent episode (or current) mixed, moderate F31.62 [place] [address] [address] Nov, Hypokalemia E87.6 [place] [address] [address] Nov, Bipolar I disorder, most recent episode (or current) mixed, moderate F31.62 [place] [address] [address] Oct, Chronic pain G89.29 [place] [address] [address] Oct, BMI 50.0-59.9, adult Z68.43 and Bipolar I disorder, most recent episode (or current) mixed, moderate F31.62 [place] [address] [address] Oct, Bipolar I disorder, most recent episode (or current) mixed, moderate F31.62 [place] [address] [address] Oct, [place] [address] [address] Oct, Hypokalemia E87.6 [place] [address] [address] Oct, DM neuro manif type II E11.49 [place] [address] [address] Oct, Bipolar I disorder, most recent episode (or current) mixed, moderate F31.62 [place] [address] [address] Oct, Bipolar I disorder, most recent episode (or current) mixed, moderate F31.62 [place] [address] [address] 14 Oct, 2017 Hyperkalemia E87.5 ; Falling R29.6 ; BMI 50.0-59.9, adult Z68.43 and Acute left ankle pain M25.572 [place] [address] [address] Oct, DM neuro manif type II E11.49 [place] [address] [address] Oct, [place] [address] [address] Sep, Chronic pain G89.29 [place] [address] [address] Sep, [address] [address] Sep, Bilateral primary osteoarthritis of knee M17.[address] [address] Sep, Generalized edema R60.1 [place] [address] [address] 16 Sep, 2017 Bipolar I disorder, most recent episode (or current) mixed, moderate F31.62 [place] [address] [address] 15 Sep, 2017 Hypoxia R09.02 ; Other hypervolemia E87. 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 ; Anemia of chronic illness D63.8 and BMI 50.0-59.9, adult Z68.43 [place] [address] [address] Sep, [place] [address] [address] Sep, Bipolar I disorder, most recent episode (or current) mixed, moderate F31.62 [place] [address] [address] Aug, Chronic pain G89.[address] [address] Aug, Generalized edema R60.1 [place] [address] [address] Aug, [place] [address] [address] 18 Aug, 2017 [place] [address] [address] 14 Aug, 2017 Bipolar I disorder, most recent episode (or current) mixed, moderate F31.62 [place] [address] [address] Aug, Bipolar I disorder, most recent episode (or current) mixed, moderate F31.62 [place] [address] [address] Aug, Chronic pain G89.29 [place] [address] [address] Jul, Bipolar I disorder, most recent episode (or current) mixed, moderate F31.62 [place] [address] [address] Jul, Bipolar I disorder, most recent episode (or current) mixed, moderate F31.62 and BMI 60.0-69.9, adult Z68.44 [place] [address] [address] Jul, Bipolar I disorder, most recent episode (or current) mixed, moderate F31.62 [place] [address] [address] Jul, Chronic pain G89.29 [place] [address] [address] Jul, Bipolar I disorder, most recent episode (or current) mixed, moderate F31.62 [place] [address] [address] Jun, Polyneuropathy associated with underlyin g disease G63 and Diabetes E11.9 [place] [address] [address] Jun, Bipolar I disorder, most recent episode (or current) mixed, moderate F31.62 [place] [address] [address] Jun, Chronic pain G89.29 [place] [address] [address] May, Bipolar I disorder, most recent episode (or current) mixed, moderate F31.62 [place] [address] [address] May, Bipolar I disorder, most recent episode (or current) mixed, moderate F31.62 [place] [address] [address] May, Diabetic polyneuropathy associated with type 2 diabetes mellitus E11.42 [facility] [address] [address] 18 May, 2017 Bipolar I disorder, most recent episode (or current) mixed, moderate F31.62 [place] [address] [address] 13 May, 2017 Bipolar I disorder, most recent episode (or current) mixed, moderate F31.62 [place] [address] [address] 12 May, 2017 Chronic pain G89.29 [place] [address] [address] Apr, Bipolar I disorder, most recent episode (or current) mixed, moderate F31.62 [place] [address] [address] Apr, [place] [address] [address] Apr, Chronic pain G89.29 and DM neuro manif t ype II E11.49 [place] [address] [address] Apr, [place] [address] [address] Apr, Bipolar I disorder, most recent episode (or current) mixed, moderate F31.62 [place] [address] [address] Apr, Chronic pain G89.29 [place] [address] [address] Apr, Iliotibial band syndrome, left M76.32 [place] [address] [address] Apr, Bipolar I disorder, most recent episode (or current) mixed, moderate F31.62 [place] [address] [address] Mar, Bipolar I disorder, most recent episode (or current) mixed, moderate F31.62 [place] [address] [address] Mar, Bipolar I disorder, most recent episode (or current) mixed, moderate F31.62 [place] [address] [address] Mar, [place] [address] [address] Mar, Bipolar I disorder, most recent episode (or current) mixed, moderate F31.62 [place] [address] [address] Mar, Chronic pain G89.29 [place] [address] [address] Mar, Bipolar I disorder, most recent episode (or current) mixed, moderate F31.62 [place] [address] [address] Mar, Bipolar I disorder, most recent episode (or current) mixed, moderate F31.62 [place] [address] [address] Mar, Acute pain of left knee M25.562 ; Left h ip pain M25.552 ; Generalized edema R60.1 and Tongue swelling R22.0 [place] [address] [address] Mar, [place] [address] [address] Feb, Chronic pain G89.29 [place] [address] [address] [address] Feb, Diabetes E11.9 [place] [address] [address] January, Chronic pain G89.29 [place] [address] [address] January, [facility] [address] [address] January, Bipolar I disorder, most recent episode (or current) mixed, moderate F31.62 [facility] [address] [address] Dec, Bipolar I disorder, most recent episode (or current) mixed, moderate F31.62 [place] [address] [address] Dec, Chronic pain G89.29 [place] [address] [address] Dec, Bipolar I disorder, most recent episode (or current) mixed, moderate F31.62 [place] [address] [address] Dec, Diabetes E11.9 ; Essential hypertension I10 ; Chronic pain G89.29 and Morbid obesity E66.01 [place] [address] [address] Dec, [place] [address] [address] Dec, Bipolar I disorder, most recent episode (or current) mixed, moderate F31.62 [place] [address] [address] Dec, Bipolar I disorder, most recent episode (or current) mixed, moderate F31.62 [place] [address] [address] Nov, Chronic pain G89.29 [place] [address] [address] Nov, Bipolar I disorder, most recent episode (or current) mixed, moderate F31.62 [place] [address] [address] Nov, [place] [address] [address] Nov, Bipolar I disorder, most recent episode (or current) mixed, moderate F31.62 [facility] [address] [address] Nov, Bipolar I disorder, most recent episode (or current) mixed, moderate F31.62 [facility] [address] [address] Nov, [facility] [address] [address] Nov, [facility] [address] [address] Nov, [facility] [address] [address] Oct, Chronic pain G89.29 [facility] [address] [address] Oct, Bipolar I disorder, most recent episode (or current) mixed, moderate F31.62 [place] [address] [address] Oct, [place] [address] [address] Oct, Chronic pain G89.29 ; Diabetes E11.9 ; A nxiety F41.9 and 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 [facility] [address] [address] Oct, [facility] [address] [address] Oct, Diabetes E11.9 [facility] [address] [address] Oct, Bipolar I disorder, most recent episode (or current) mixed, moderate F31.62 [facility] [address] [address] Sep, Chronic pain G89.29 [facility] [place] [facility] [address] [place] [id number] [place] [address] Sep, Chronic pain G89.29 [facility] [address] [address] Aug, Chronic pain G89.29 [facility] [address] [place] [id number] [place] [address] Jul, [facility] [address] [address] Jul, Diabetes E11.9 [facility] [address] [address] Jul, Chronic pain G89.29 [facility] [address] [address] Jul, Bipolar I disorder, most recent episode (or current) mixed, moderate F31.62 [place] [address] [address] Jun, Bipolar I disorder, most recent episode (or current) mixed, moderate F31.62 [place] [address] [address] Jun, [facility] [address] [address] Jun, Bipolar I disorder, most recent episode (or current) mixed, moderate F31.62 [place] [address] [address] 30 May, 2016 Insomnia, unspecified type G47.00 [facility] [address] [address] 22 May, 2016 Bipolar I disorder, most recent episode (or current) mixed, moderate F31.62 [place] [address] [address] 14 May, 2016 [facility] [address] [address] 08 May, 2016 Bipolar I disorder, most recent episode (or current) mixed, moderate F31.62 [place] [address] [address] May, Diabetes E11.9 and Essential hypertensio n I10 [facility] [address] [address] Apr, Chronic pain G89.29 [place] [address] [address] Apr, Bipolar I disorder, most recent episode (or current) mixed, moderate F31.62 [place] [address] [address] Apr, [place] [address] [address] Apr, [place] [address] [address] Mar, Chronic pain G89.29 ; Headache, unspecif ied headache type R51 ; Neuropathy G62.9 ; Pain of right hip joint M25.551 and Essential hypertension I10 [place] [address] [address] Mar, Chronic pain G89.29 [place] [address] [address] Mar, Bipolar I disorder, most recent episode (or current) mixed, moderate F31.62 [place] [address] [address] Feb, Bipolar I disorder, most recent episode (or current) mixed, moderate F31.62 and Insomnia, unspecified type G47.00 [place] [address] [address] Feb, Chronic pain G89.29 [place] [address] [address] Feb, Bipolar I disorder, most recent episode (or current) mixed, moderate F31.62 [place] [address] [address] January, Bipolar I disorder, most recent episode (or current) mixed, moderate F31.62 [facility] [address] [address] January, Chronic pain G89.29 [place] [address] [address] January, Chronic pain G89.29 and Essential hypert ension I10 [place] [address] [address] January, Bipolar I disorder, most recent episode (or current) mixed, moderate F31.62 [place] [address] [address] Dec, [place] [address] [address] Dec, [place] [address] [address] Dec, [place] [address] [address] Dec, [place] [address] [address] Nov, Reactive airway disease J45.909 [place] [address] [address] Nov, [place] [address] [address] Nov, [facility] [address] [address] Nov, [place] [address] [address] Nov, [place] [address] [address] Nov, Onychomycosis B35.1 ; Hammertoe M20.40 ; [place] or callus L84 and DM neuro manif type II E11.49 [place] [address] [address] Nov, Chronic pain G89.29 ; Leukocytosis D72.8 29 and Diabetes E11.9 [place] [address] [address] Nov, [place] [address] [address] Oct, Bronchitis J40 [place] [address] [address] Oct, [address] [address] Oct, [place] [address] [address] Oct, Mastoiditis, unspecified laterality H70. 90 and Type 2 diabetes mellitus with complication E11.8 [place] [address] [address] Sep, [address] [address] Sep, Dysuria R30.0 ; Cough R05 ; Benign prost atic hyperplasia with lower urinary tract symptoms, unspecified morphology N40.1 ; Hypokalemia E87.6 and Eustachian tube dysfunction, unspecified laterality H69.[address] [address] Sep, Moderate mixed bipolar I disorder F31.[address] [address] Sep, Hypokalemia E87.[address] [address] Sep, [place] [address] [address] Sep, Upper respiratory tract infection, unspe cified type J06.9 [facility] [address] [address] Aug, [facility] [address] [address] Aug, Dysuria R30.0 [facility] [address] [address] Aug, [facility] [address] [address] Jul, [facility] [address] [address] Jul, [facility] [address] [address] Jul, [facility] [address] [address] Jul, [facility] [address] [address] Jun, [facility] [address] [address] Jun, [facility] [address] [address] Jun, [facility] [address] [address] May, [facility] [address] [address] May, Bipolar I disorder, most recent episode (or current) mixed, moderate 296.62 [facility] [address] [address] 16 May, 2015 [facility] [address] [address] May, Bipolar I disorder, most recent episode (or current) mixed, moderate 296.62 and Major depressive disorder, recurrent episode, severe, specified as with psychotic behavior 296.34 [facility] [address] [address] May, Bipolar I disorder, most recent episode (or current) mixed, moderate 296.62 [facility] [address] [address] May, [facility] [address] [address] Apr, [facility] [address] [address] Apr, [facility] [address] [address] Apr, Unspecified disorder of kidney and urete r 593.9 and Diabetes mellitus type 2, uncontrolled 250.02 [facility] [address] [address] Apr, [facility] [address] [address] Apr, [facility] [address] [address] Apr, [facility] [address] [address] Apr, [facility] [address] [address] Apr, Diabetes mellitus type II, uncontrolled 250.02 [facility] [address] [address] Apr, [facility] [address] [address] Mar, [facility] [address] [address] Mar, [facility] [address] [address] Mar, [facility] [address] [address] Mar, Major depressive disorder, recurrent epi sode, severe, specified as with psychotic behavior 296.34 and Bipolar I disorder, most recent episode (or current) mixed, moderate 296.62 [facility] [address] [address] Mar, Diabetes 250.00 ; Anuria 788.5 ; Nausea and vomiting 787.01 and Diarrhea 787.91 [facility] [address] [address] Mar, Diabetes 250.00 [facility] [address] [place] [address] Mar, [facility] [address] [address] Mar, Diabetes 250.00 [facility] [address] [place] [address] Mar, [facility] [address] [place] [address] Mar, [facility] [address] [place] [address] Mar, [facility] [address] [place] [address] Mar, [address] [address] Mar, Bipolar I disorder, most recent episode (or current) mixed, moderate 296.62 and Major depressive disorder, recurrent episode, severe, specified as with psychotic behavior 296.[address] [address] Mar, Magnesium deficiency 275.2 ; Hypokalemia 276.8 ; Nausea & vomiting 787.01 and Diabetes mellitus type 2, uncontrolled 250.02 [facility] [address] [place] [address] Feb, [facility] [address] [place] [address] Feb, Bipolar I disorder, most recent episode (or current) mixed, moderate 296.62 [place] [id number] [place] [address] Feb, Nausea and vomiting 787.01 ; Left elbow pain 719.42 ; Anuria 788.5 and Diabetes 250.00 [facility] [address] [address] Feb, [facility] [address] [address] Feb, Hypopotassemia 276.8 and Hypokalemia 276 .8 [facility] [address] [address] Feb, Hypopotassemia 276.8 and Hypokalemia 276 .8 [place] [address] [address] Feb, Seborrheic keratoses 702.19 [place] [address] [address] Feb, Hypopotassemia 276.8 and Low magnesium l evels 275.2 [facility] [address] [address] January, [facility] [address] [address] January, [facility] [address] [address] January, [facility] [address] [address] January, Scalp lesion 709.9 [facility] [address] [address] January, [facility] [address] [address] Dec, Tear of medial cartilage or meniscus of knee, current 836.0 and 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 [facility] [address] [address] Dec, [facility] [address] [id number] [place] [address] 29 Dec, 2014 [facility] [place] [facility] [address] [id number] [place] [address] 28 Dec, 2014 Squamous cell carcinoma, 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 42 [facility] [place] [facility] [address] [id number] [facility] [place] [address] 14 Dec, 2014 [facility] [place] [facility] [address] [id number] [place] [address] Dec, [facility] [place] [facility] [address] [id number] [place] [address] 27 Nov, 2014 [facility] [place] [facility] [address] [id number] [place] [address] Nov, [facility] [place] [facility] [address] [id number] [place] [address] Nov, [facility] [place] [facility] [address] [id number] [place] [address] Nov, [facility] [place] [facility] [address] [id number] [place] [address] Nov, [facility] [place] [facility] [address] [id number] [place] [address] Nov, [facility] [place] [facility] [address] [id number] [place] [address] Nov, [facility] [place] [facility] [address] [id number] [place] [address] Nov, [facility] [place] [facility] [address] [id number] [place] [address] Nov, [facility] [place] [facility] [address] [id number] [place] [address] Nov, [facility] [place] [facility] [address] [id number] [place] [address] Nov, [facility] [place] [facility] [address] [id number] [place] [address] Nov, [facility] [place] [facility] [address] [id number] [place] [address] Oct, [facility] [place] [facility] [address] [id number] [place] [address] Oct, [facility] [place] [facility] [address] [id number] [place] [address] Oct, [facility] [place] [facility] [address] [id number] [place] [address] Oct, [facility] [place] [facility] [address] [id number] [place] [address] Oct, [facility] [place] [facility] [address] [id number] [place] [address] Oct, [facility] [place] [facility] [address] [id number] [place] [address] Oct, [facility] [place] [facility] [address] [id number] [place] [address] Oct, [facility] [place] [facility] [address] [id number] [place] [address] Oct, [facility] [place] [facility] [address] [id number] [place] [address] Sep, [facility] [place] [facility] [address] [id number] [place] [address] Sep, [facility] [place] [facility] [address] [id number] [place] [address] Sep, [facility] [place] [facility] [address] [id number] [place] [address] Sep, [facility] [place] [facility] [address] [id number] [place] [address] Sep, [facility] [place] [facility] [address] [id number] [place] [address] Sep, [facility] [place] [facility] [address] [id number] [place] [address] Sep, [facility] [place] [facility] [address] [id number] [place] [address] Sep, [facility] [place] [facility] [address] [id number] [place] [address] Sep, [facility] [place] [facility] [address] [id number] [place] [address] Sep, [facility] [place] [facility] [address] [id number] [place] [address] Sep, [facility] [place] [facility] [address] [id number] [place] [address] Sep, [facility] [place] [facility] [address] [id number] [place] [address] Sep, [facility] [place] [facility] [address] [id number] [place] [address] Sep, [facility] [place] [facility] [address] [id number] [place] [address] Sep, [facility] [place] [facility] [address] [id number] [place] [address] Sep, [facility] [place] [facility] [address] [id number] [place] [address] Aug, [facility] [place] [facility] [address] [id number] [place] [address] Aug, [facility] [place] [facility] [address] [id number] [place] [address] Aug, [facility] [place] [facility] [address] [id number] [place] [address] Aug, [facility] [place] [facility] [address] [id number] [place] [address] Aug, [facility] [place] [facility] [address] [id number] [place] [address] 31 Aug, 2014 [facility] [place] [facility] [address] [id number] [place] [address] Aug, [facility] [place] [facility] [address] [id number] [place] [address] Aug, [facility] [place] [facility] [address] [id number] [place] [address] Aug, [facility] [place] [facility] [address] [facility] [id number] [place] [address] Aug, [facility] [place] [facility] [address] [facility] [id number] [place] [address] Aug, Via [facility] OP 1 MI [facility] [id number] Aug, [facility] [place] [facility] [address] [facility] [id number] [place] [address] Aug, [facility] [place] [facility] [address] [facility] [id number] [place] [address] Aug, [facility] [place] [facility] [address] [id number] [place] [address] Aug, [facility] [place] [facility] [address] [id number] [place] [address] Aug, [facility] [place] [facility] [address] [id number] [place] [address] Aug, [facility] [place] [facility] [address] [facility] [id number] [place] [address] Aug, [facility] [place] [facility] [address] [id number] [place] [address] Aug, [facility] [place] [facility] [address] [id number] [place] [address] Aug, [facility] [place] [facility] [address] [id number] [place] [address] Aug, [facility] [place] [facility] [address] [facility] [id number] [place] [address] Aug, [facility] [place] [facility] [address] [facility] [id number] [place] [address] Aug, [facility] [place] [facility] [address] [facility] [id number] [place] [address] Aug, [facility] [place] [facility] [address] [id number] [place] [address] Aug, [facility] [place] [facility] [address] [id number] [place] [address] Aug, [facility] [place] [facility] [address] [id number] [place] [address] Aug, [facility] [place] [facility] [address] [id number] [place] [address] Aug, [facility] [place] [facility] [address] [id number] [place] [address] Aug, [facility] [place] [facility] [address] [id number] [place] [address] Aug, [facility] [place] [facility] [address] [id number] [place] [address] Jul, [facility] [place] [facility] [address] [id number] [place] [address] Jul, [facility] [place] [facility] [address] [id number] [place] [address] Jul, [facility] [place] [facility] [address] [id number] [place] [address] Jul, [facility] [place] [facility] [address] [id number] [place] [address] Jul, [facility] [place] [facility] [address] [id number] [place] [address] Jul, [facility] [place] [facility] [address] [id number] [place] [address] Jul, [facility] [place] [facility] [address] [id number] [place] [address] Jul, [facility] [place] [facility] [address] [id number] [place] [address] Jul, [facility] [place] [facility] [address] [place] [id number] [place] [address] Jul, [facility] [place] [facility] [address] [id number] [place] [address] Jun, [facility] [place] [facility] [address] [id number] [place] [address] Jun, [facility] [place] [facility] [address] [id number] [place] [address] 16 Jun, 2014 [facility] [place] [facility] [address] [id number] [place] [address] 16 Jun, 2014 [facility] [address] [id number] [place] [address] 15 Jun, 2014 [facility] [address] [id number] [place] [address] Jun, [facility] [address] [id number] [place] [address] Jun, [facility] [address] [id number] [place] [address] Jun, [facility] [address] [id number] [place] [address] Jun, [facility] [address] [id number] [place] [address] Jun, [facility] [address] [id number] [place] [address] 29 May, 2013 [facility] [address] [id number] [place] [address] 29 Sep, 2013 [facility] [address] [id number] [place] [address] 26 Sep, 2013 [facility] [address] [id number] [place] [address] 26 Sep, 2013 [facility] [address] [id number] [place] [address] 17 Sep, 2013 [facility] [address] [id number] [place] [address] 17 Sep, 2013 [facility] [address] [id number] [place] [address] 15 Sep, 2013 [facility] [address] [id number] [place] [address] 15 Sep, 2013 [facility] [address] [id number] [place] [address] 15 May, 2013 [facility] [address] [id number] [facility] [place] [address] 15 May, 2013 [facility] [address] [facility] [id number] [facility] [place] [address] 10 May, 2013 [facility] [address] [facility] [id number] [facility] [place] [address] 10 May, 2013 [facility] [address] [id number] [facility] [place] [address] 09 May, 2013 [facility] [address] [facility] [id number] [facility] [place] [address] 09 May, 2013 [facility] [address] [id number] [facility] [place] [address] May, 2013 [facility] [address] [id number] [place] [address] May, 2013 [facility] [address] [id number] [facility] [place] [address] Apr, 2013 [facility] [address] [facility] [id number] [facility] [place] [address] Apr, 2013 [facility] [address] [id number] [facility] [place] [address] Apr, [facility] [address] [facility] [id number] [place] [address] Apr, 2013 [facility] [address] [id number] [place] [address] Apr, 2013 [facility] [address] [facility] [id number] [place] [address] Apr, 2013 [facility] [address] [id number] [place] [address] Apr, 2013 [facility] [address] [facility] [id number] [place] [address] Apr, 2013 [facility] [place] [facility] [address] [id number] [place] [address] Apr, 2013 [facility] [place] [facility] [address] [id number] [place] [address] Apr, [facility] [place] [facility] [address] [id number] [facility] [place] [address] Apr, [facility] [place] [facility] [address] [facility] [id number] [place] [address] Apr, [facility] [place] [facility] [address] [id number] [place] [address] Apr, [facility] [place] [facility] [address] [facility] [id number] [place] [address] Apr, [facility] [place] [facility] [address] [id number] [place] [address] Apr, [facility] [place] [facility] [address] [id number] [place] [address] Mar, [facility] [place] [facility] [address] [id number] [place] [address] Mar, [facility] [place] [facility] [address] [id number] [place] [address] Mar, [facility] [place] [facility] [address] [id number] [place] [address] Mar, [facility] [place] [facility] [address] [id number] [place] [address] Mar, [facility] [place] [facility] [address] [id number] [place] [address] Mar, [facility] [place] [facility] [address] [id number] [place] [address] Mar, [facility] [place] [facility] [address] [id number] [place] [address] Mar, [facility] [place] [facility] [address] [id number] [place] [address] Mar, [facility] [place] [facility] [address] [id number] [place] [address] Mar, [facility] [place] [facility] [address] [id number] [place] [address] Mar, [facility] [place] [facility] [address] [facility] [id number] [place] [address] Mar, 2013 [facility] [place] [facility] [address] [facility] [id number] [place] [address] Mar, 2013 [facility] [place] [facility] [address] [facility] [id number] [place] [address] Mar, 2013 [facility] [place] [facility] [address] [id number] [place] [address] Mar, 2013 [facility] [place] [facility] [address] [facility] [id number] [place] [address] Mar, 2013 [facility] [place] [facility] [address] [id number] [place] [address] Mar, 2013 [facility] [place] [facility] [address] [id number] [place] [address] Mar, 2013 [facility] [place] [facility] [address] [id number] [place] [address] Feb, [facility] [place] [facility] [address] [id number] [place] [address] Feb, [facility] [place] [facility] [address] [id number] [place] [address] Feb, [facility] [place] [facility] [address] [id number] [place] [address] Feb, [facility] [place] [facility] [address] [id number] [place] [address] Feb, [facility] [place] [facility] [address] [id number] [place] [address] Feb, [facility] [place] [facility] [address] [facility] [id number] [place] [address] Feb, [facility] [place] [facility] [address] [id number] [place] [address] Feb, [facility] [place] [facility] [address] [id number] [place] [address] Feb, [facility] [place] [facility] [address] [id number] [place] [address] Feb, [facility] [place] [facility] [address] [facility] [id number] [place] [address] Feb, [facility] [place] [facility] [address] [facility] [id number] [facility] [place] [address] Feb, [facility] [place] [facility] [address] [id number] [place] [address] Feb, [facility] [place] [facility] [address] [id number] [place] [address] Feb, [facility] [place] [facility] [address] [facility] [id number] [facility] [place] [address] January, [facility] [place] [facility] [address] [id number] [place] [address] January, [facility] [place] [facility] [address] [id number] [place] [address] January, [facility] [place] [facility] [address] [id number] [place] [address] January, [facility] [place] [facility] [address] [facility] [id number] [place] [address] January, [facility] [place] [facility] [address] [id number] [place] [address] January, [facility] [place] [facility] [address] [id number] [place] [address] January, [facility] [place] [facility] [address] [id number] [place] [address] January, [facility] [place] [facility] [address] [facility] [id number] [place] [address] January, [facility] [place] [facility] [address] [facility] [id number] [place] [address] January, [facility] [place] [facility] [address] [id number] [place] [address] January, [facility] [place] [facility] [address] [id number] [place] [address] January, [facility] [place] [facility] [address] [id number] [place] [address] January, [facility] [place] [facility] [address] [id number] [place] [address] January, [facility] [place] [facility] [address] [facility] [id number] [place] [address] Dec, [facility] [place] [facility] [address] [id number] [place] [address] Dec, [facility] [place] [facility] [address] [facility] [id number] [place] [address] Dec, [facility] [place] [facility] [address] [id number] [place] [address] Dec, [facility] [place] [facility] [address] [id number] [place] [address] Dec, [facility] [place] [facility] [address] [id number] [place] [address] Dec, [facility] [place] [facility] [address] [id number] [place] [address] Dec, [facility] [place] [facility] [address] [id number] [place] [address] Dec, [facility] [place] [facility] [address] [id number] [place] [address] Dec, [facility] [place] [facility] [address] [id number] [place] [address] Dec, [facility] [place] [facility] [address] [id number] [place] [address] Nov, [facility] [place] [facility] [address] [facility] [id number] [place] [address] Nov, [facility] [place] [facility] [address] [id number] [place] [address] Nov, [facility] [place] [facility] [address] [id number] [place] [address] Nov, [facility] [place] [facility] [address] [id number] [place] [address] Nov, [facility] [place] [facility] [address] [facility] [id number] [place] [address] Nov, [facility] [place] [facility] [address] [id number] [place] [address] Nov, [facility] [place] [facility] [address] [id number] [place] [address] Nov, [facility] [place] [facility] [address] [id number] [place] [address] Nov, [facility] [place] [facility] [address] [facility] [id number] [place] [address] Nov, [facility] [place] [facility] [address] [id number] [place] [address] Oct, [facility] [place] [facility] [address] [id number] [place] [address] Oct, [facility] [place] [facility] [address] [id number] [place] [address] Oct, [facility] [place] [facility] [address] [id number] [place] [address] Oct, [facility] [place] [facility] [address] [id number] [place] [address] Oct, [facility] [place] [facility] [address] [id number] [place] [address] Oct, [facility] [place] [facility] [address] [id number] [place] [address] Oct, [facility] [place] [facility] [address] [id number] [place] [address] 14 Oct, 2013 [facility] [place] [facility] [address] [id number] [place] [address] Oct, [facility] [place] [facility] [address] [id number] [place] [address] 05 Oct, 2013 [facility] [place] [facility] [address] [id number] [place] [address] Oct, [facility] [place] [facility] [address] [id number] [place] [address] 04 Oct, 2013 [facility] [place] [facility] [address] [facility] [id number] [place] [address] Oct, [facility] [place] [facility] [address] [id number] [place] [address] Oct, [facility] [place] [facility] [address] [id number] [place] [address] Sep, [facility] [place] [facility] [address] [id number] [place] [address] Sep, [facility] [place] [facility] [address] [id number] [place] [address] Sep, [facility] [place] [facility] [address] [id number] [place] [address] Sep, [facility] [place] [facility] [address] [id number] [place] [address] Sep, [facility] [place] [facility] [address] [id number] [place] [address] Sep, [facility] [place] [facility] [address] [id number] [place] [address] Sep, [facility] [place] [facility] [address] [id number] [place] [address] Sep, [facility] [place] [facility] [address] [id number] [place] [address] Sep, [facility] [place] [facility] [address] [id number] [place] [address] Sep, [facility] [place] [facility] [address] [id number] [place] [address] Aug, [facility] [place] [facility] [address] [id number] [place] [address] Aug, [facility] [place] [facility] [address] [id number] [place] [address] Jul, [facility] [place] [facility] [address] [id number] [place] [address] Jul, [facility] [place] [facility] [address] [id number] [place] [address] Jul, [facility] [place] [facility] [address] [id number] [place] [address] Jul, [facility] [place] [facility] [address] [id number] [place] [address] Jul, [facility] [place] [facility] [address] [id number] [place] [address] Jul, [facility] [place] [facility] [address] [id number] [place] [address] Jul, [facility] [place] [facility] [address] [id number] [place] [address] Jul, [facility] [place] [facility] [address] [id number] [place] [address] Jul, [facility] [place] [facility] [address] [id number] [place] [address] Jul, [facility] [place] [facility] [address] [id number] [place] [address] Jul, [facility] [place] [facility] [address] [id number] [place] [address] Jul, [facility] [place] [facility] [address] [id number] [place] [address] Jul, [facility] [place] [facility] [address] [id number] [place] [address] Jul, [facility] [place] [facility] [address] [id number] [place] [address] Jul, [facility] [place] [facility] [address] [id number] [place] [address] Jul, [facility] [place] [facility] [address] [id number] [place] [address] Jul, [facility] [place] [facility] [address] [id number] [place] [address] Jul, [facility] [place] [facility] [address] [id number] [place] [address] Jul, 2012 [facility] [place] [facility] [address] [facility] [id number] [place] [address] Jun, 2012 [facility] [place] [facility] [address] [id number] [place] [address] 16 Jun, 2012 [facility] [place] [facility] [address] [id number] [place] [address] 16 Jun, 2012 [facility] [place] [facility] [address] [id number] [place] [address] 16 Jun, 2012 [facility] [place] [facility] [address] [id number] [place] [address] Jun, 2012 [facility] [place] [facility] [address] [id number] [place] [address] Jun, 2012 [facility] [place] [facility] [address] [id number] [place] [address] Jun, 2012 [facility] [place] [facility] [address] [id number] [place] [address] 10 Jun, 2012 [facility] [place] [facility] [address] [id number] [place] [address] Jun, [facility] [place] [facility] [address] [id number] [place] [address] Jun, 2012 [facility] [place] [facility] [address] [id number] [place] [address] Jun, [facility] [place] [facility] [address] [id number] [place] [address] 26 May, 2012 [facility] [place] [facility] [address] [id number] [place] [address] 25 Sep, 2012 [facility] [place] [facility] [address] [id number] [place] [address] 19 Sep, 2012 [facility] [place] [facility] [address] [id number] [place] [address] 17 Sep, 2012 [facility] [place] [facility] [address] [id number] [place] [address] 11 Sep, 2012 [facility] [place] [facility] [address] [id number] [facility] [place] [address] 10 May, 2012 [facility] [place] [facility] [address] [id number] [facility] [place] [address] May, 2012 [facility] [place] [facility] [address] [facility] [id number] [place] [address] May, [facility] [place] [facility] [address] [id number] [place] [address] Apr, [facility] [place] [facility] [address] [facility] [id number] [facility] [place] [address] Apr, [facility] [place] [facility] [address] [id number] [place] [address] Apr, [facility] [place] [facility] [address] [id number] [place] [address] Apr, [facility] [place] [facility] [address] [id number] [place] [address] Apr, [facility] [place] [facility] [address] [id number] [place] [address] Mar, [facility] [place] [facility] [address] [id number] [place] [address] Mar, [facility] [place] [facility] [address] [id number] [place] [address] Mar, [facility] [place] [facility] [address] [id number] [place] [address] Mar, [facility] [place] [facility] [address] [id number] [place] [address] Mar, [facility] [place] [facility] [address] [facility] [id number] [place] [address] Mar, [facility] [place] [facility] [address] [id number] [place] [address] Mar, [facility] [place] [facility] [address] [id number] [place] [address] Mar, [facility] [place] [facility] [address] [id number] [place] [address] Feb, [facility] [address] [id number] [place] [address] Feb, [facility] [place] [facility] [address] [id number] [place] [address] January, [facility] [place] [facility] [address] [id number] [place] [address] January, [facility] [place] [facility] [address] [id number] [place] [address] Dec, [facility] [place] [facility] [address] [id number] [place] [address] Dec, [facility] [place] [facility] [address] [id number] [place] [address] Nov, [facility] [place] [facility] [address] [id number] [place] [address] Nov, [facility] [place] [facility] [address] [id number] [place] [address] Nov, [facility] [place] [facility] [address] [id number] [place] [address] Nov, [facility] [place] [facility] [address] [id number] [place] [address] Oct, [facility] [place] [facility] [address] [id number] [place] [address] Oct, [facility] [place] [facility] [address] [id number] [place] [address] Oct, [facility] [place] [facility] [address] [id number] [place] [address] Oct, [facility] [place] [facility] [address] [id number] [place] [address] 16 Oct, 2012 [facility] [place] [facility] [address] [id number] [place] [address] 14 Oct, 2012 [facility] [place] [facility] [address] [id number] [place] [address] 08 Oct, 2012 [facility] [place] [facility] [address] [id number] [place] [address] 07 Oct, 2012 [facility] [place] [facility] [address] [id number] [place] [address] Oct, [facility] [place] [facility] [address] [id number] [place] [address] Sep, [facility] [place] [facility] [address] [id number] [place] [address] Sep, [facility] [place] [facility] [address] [id number] [place] [address] Sep, [facility] [place] [facility] [address] [id number] [place] [address] Sep, [facility] [place] [facility] [address] [id number] [place] [address] Sep, [facility] [place] [facility] [address] [id number] [place] [address] Sep, [facility] [place] [facility] [address] [id number] [place] [address] Sep, [facility] [place] [facility] [address] [id number] [place] [address] Sep, [facility] [place] [facility] [address] [id number] [place] [address] Aug, [facility] [place] [facility] [address] [id number] [place] [address] Aug, [facility] [place] [facility] [address] [id number] [place] [address] Aug, [facility] [place] [facility] [address] [id number] [place] [address] Aug, [facility] [place] [facility] [id number] [place] [address] Aug, [facility] [place] [facility] [address] [id number] [place] [address] Aug, [facility] [place] [facility] [address] [id number] [place] [address] Aug, [facility] [place] [facility] [address] [id number] [place] [address] Aug, [facility] [place] [facility] [address] [id number] [place] [address] Jul, [facility] [place] [facility] [address] [id number] [place] [address] Jul, [facility] [place] [facility] [address] [id number] [place] [address] Jul, [facility] [place] [facility] [address] [id number] [place] [address] Jul, [facility] [place] [facility] [address] [id number] [place] [address] Jul, [facility] [place] [facility] [address] [id number] [place] [address] Jul, [facility] [place] [facility] [address] [id number] [place] [address] Jun, [facility] [place] [facility] [address] [id number] [place] [address] Jun, [facility] [place] [facility] [address] [id number] [place] [address] Jun, [facility] [place] [facility] [address] [id number] [place] [address] Jun, [facility] [place] [facility] [address] [id number] [place] [address] Jun, [facility] [place] [facility] [address] [id number] [place] [address] Jun, [facility] [place] [facility] [address] [id number] [place] [address] Jun, [facility] [address] [id number] [place] [address] Jun, [facility] [address] [id number] [place] [address] Jun, [facility] [address] [id number] [place] [address] 26 May, 2012 [facility] [address] [facility] [id number] [place] [address] 24 May, 2012 [facility] [address] [id number] [place] [address] May, [facility] [address] [facility] [id number] [facility] [place] [address] 30 Apr, 2012 [facility] [address] [id number] [place] [address] Apr, [facility] [address] [id number] [facility] [place] [address] Apr, [facility] [address] [id number] [place] [address] Apr, [facility] [address] [id number] [place] [address] Apr, [facility] [address] [id number] [place] [address] Apr, [facility] [address] [id number] [place] [address] Mar, [facility] [address] [id number] [place] [address] Mar, [facility] [address] [id number] [place] [address] Mar, [facility] [address] [id number] [place] [address] Mar, [facility] [address] [id number] [place] [address] Feb, [facility] [address] [id number] [place] [address] Feb, [facility] [address] [id number] [place] [address] Feb, [facility] [address] [id number] [place] [address] Feb, [facility] [address] [id number] [place] [address] Feb, [facility] [address] [id number] [place] [address] January, [facility] [address] [id number] [place] [address] January, [facility] [address] [id number] [place] [address] January, [facility] [address] [id number] [place] [address] January, [facility] [address] [id number] [place] [address] January, [facility] [address] [id number] [place] [address] January, [facility] [address] [id number] [place] [address] Dec, [facility] [address] [id number] [place] [address] Dec, [facility] [address] [id number] [place] [address] Dec, [facility] [address] [id number] [place] [address] Dec, [facility] [address] [id number] [place] [address] Dec, [facility] [address] [id number] [place] [address] Nov, [facility] [address] [id number] [place] [address] Nov, [facility] [address] [id number] [place] [address] Nov, [facility] [address] [id number] [place] [address] Nov, [facility] [address] [id number] [place] [address] Oct, [facility] [address] [id number] [place] [address] Oct, [facility] [address] [id number] [place] [address] 24 Oct, 2011 [facility] [address] [id number] [place] [address] Oct, [facility] [address] [id number] [place] [address] Oct, [facility] [address] [id number] [place] [address] Sep, [facility] [address] [id number] [place] [address] Sep, [facility] [address] [id number] [place] [address] Sep, [facility] [id number] [place] [address] Sep, [facility] [address] [id number] [place] [address] Sep, [facility] [id number] [place] [address] Sep, [facility] [address] [id number] [place] [address] Aug, [facility] [id number] [place] [address] Aug, [facility] [address] [id number] [place] [address] Aug, [facility] [address] [id number] [place] [address] Jul, [facility] [address] [id number] [place] [address] Jul, [facility] [address] [id number] [place] [address] Jul, [facility] [address] [id number] [place] [address] Jul, [facility] [address] [id number] [place] [address] Jun, [facility] [address] [id number] [place] [address] Jun, [facility] [address] [id number] [place] [address] 18 Jun, 2011 [facility] [address] [id number] [place] [address] Jun, [facility] [address] [id number] [place] [address] Jun, [facility] [address] [id number] [place] [address] 10 Jun, 2011 [facility] [address] [id number] [place] [address] Mar, [facility] [address] [id number] [place] [address] Dec, [facility] [address] [id number] [place] [address] Dec, [facility] [address] [id number] [place] [address] Nov, [facility] [facility] [id number] [place] [address] 16 Nov, 2010 [facility] [id number] [place] [address] Sep, [facility] [id number] [place] [address] Aug, [facility] [id number] [place] [address] Aug, [facility] [id number] [place] [address] Aug, [facility] [id number] [place] [address] Aug, [facility] [id number] [place] [address] 27 Aug, 2010 [facility] [id number] [place] [address] 14 Aug, 2010 [facility] [id number] [place] [address] 08 Aug, 2010 [facility] [id number] [place] [address] 08 Aug, 2010 [facility] [id number] [place] [address] 07 Aug, 2010 [facility] [id number] [place] [address] 06 Aug, 2010 [facility] [id number] [place] [address] Aug, [facility] [id number] [place] [address] Aug, [facility] [id number] [place] [address] Jul, [facility] [id number] [place] [address] Jul, [facility] [id number] [place] [address] Jul, [facility] [id number] [place] [address] Jul, [facility] [id number] [place] [address] Jul, [facility] [id number] [place] [address] Jul, [facility] [id number] [place] [address] Jun, [facility] [id number] [place] [address] Jun, [facility] [id number] [place] [address] 19 Jun, 2010 [facility] [id number] [place] [address] 13 Jun, 2010 [facility] [id number] [place] [address] 16 Apr, 2010 [facility] [id number] [place] [address] Mar, [facility] [id number] [place] [address] Feb, [facility] [id number] [place] [address] January, [facility] [id number] [place] [address] 15 Dec, 2009 [facility] [id number] [place] [address] Nov, [facility] [id number] [place] [address] 31 Aug, 2009 [facility] [id number] [place] [address] Aug, [facility] [id number] [place] [address] Aug, [facility] [id number] [place] [address] Jul, [facility] [id number] [place] [address] Jul, [facility] [id number] [place] [address] 07 Jul, 2009 [facility] [id number] [place] [address] 30 Jun, 2009 [facility] [id number] [place] [address] 29 Jun, 2009 [facility] [id number] [place] [address] 26 Jun, 2009 [facility] [id number] [place] [address] Jun, [facility] [id number] [place] [address] Jun, [facility] [id number] [place] [address] Jun, [facility] [id number] [place] [address] Apr, [facility] [id number] [place] [address] Apr, [facility] [address] [address] Feb, [facility] [id number] [place] [address] January, [facility] [id number] [place] [address] Dec, IMMUNIZATIONS No Known Immunizations SOCIAL HISTORY Never Assessed REASON FOR VISIT PLAN OF CARE VITAL SIGNS Height 67 in 2013-10-08 Weight 335.5 lbs 2013-10-08 Heart Rate 60 bpm 2013-10-08 Blood pressure systolic 188 mmHg 2013-10-08 Blood pressure diastolic 96 mmHg 2013-10-08 MEDICATIONS Unknown Medications RESULTS No Results PROCEDURES Procedure Date Ordered Result Body Site PSYTX PT&/FAMILY 45 MINUTES Oct 08, 2013 INSTRUCTIONS MEDICATIONS ADMINISTERED No Known Medications MEDICAL (GENERAL) HISTORY Type Description Date Medical History type II diabetes Medical History coronary artery disease stress test Medical History chronic obstructive pulmonary disease (C OPD) Medical History gastroesophageal reflux disease (GERD) Medical History acute renal failure Medical History erectile dysfunction Medical History hyperlipidemia Medical History obesity Medical History skin cancer-basal cell R christianity (removed ) Medical History Arthritis Medical History [...] EGD ([facility]) 2009 Surgical History colonoscopy 2009 ([facility]), 2013 ([facility] ) Surgical History heart cath: [...] History inability to urinate 09/16/15 Hospitalization History [facility] inpatient mental health ea rly 1999's Hospitalization History hyperkalemia 10/2017 Hospitalization History fluid in lung
--- OUTSIDE RECORDS SUMMARY | 2020-03-01 16:41 | XMS REPORT ---
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 Name Role Phone ROSELINE LUIS Unavailable PROBLEMS Type Condition ICD9-CM Code GTO41-VC Code Onset Dates Condition S tatus SNOMED Code Problem DM neuro manif type II E11.49 Active 71028716 Problem Chronic pain G89.29 Active 1600242 1 Problem Diabetes E11.9 Active 29512014 Problem Reactive airway disease J45.909 Active 648927541937 Problem Leukocytosis D72.829 Active 6173689 06 Problem Insomnia, unspecified type G47.00 Act sharon 367611229 Problem Bipolar I disorder, most recent episode (or curr ent) mixed, moderate F31.62 Active 03275382 Problem Primary osteoarthritis of right knee M17.11 Active 817707306862607 Problem Cough R05 Active 71225239 Problem Pure hypercholesterolemia E78.00 Acti ve 095431399 Problem Dysuria R30.0 Active 68023820 Problem Benign prostatic hyperplasia with lower urinary tract symptoms, unspecified morphology N40.1 Active 59770 6007 Problem Eustachian tube dysfunction, unspecified laterality H69.80 Active 25788753 Problem Polyneuropathy associated with underlying disease G63 Active 906996263 Problem Diabetic polyneuropathy associated with type 2 d iabetes mellitus E11.42 Active 86064495 Problem Anemia of chronic illness D63.8 Acti ve 366930227 Problem Chronic lymphocytic leukemia C91.10 A ctive 30759302 Problem Bilateral primary osteoarthritis of knee M17.0 Active 185163490 Problem 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 Active 148314730 Problem Eye exam abnormal R93.8 Active 16 1590055 Problem Retinal edema H35.81 Active 828377 6 Problem Lymphocytosis D72.820 Active 248504 09 Problem Bipolar disorder, in partial remission, most rec ent episode depressed F31.75 Active 58966584 Problem Hypokalemia E87.6 Active 34711632 Problem Falling R29.6 Active 540493137 Problem Pressure ulcer of other site, stage 3 L89.893 Active 698680578 Problem Other iron deficiency anemia D50.8 A ctive 93885682 Problem Mild cognitive impairment G31.84 Acti ve 232385110 Problem Skin cancer C44.90 Active 71547977 7 Problem manager long term care (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 Z79.4 Active 957179697 Problem Morbid obesity E66.01 Active 68523 6002 Problem Mood disorder F39 Active 059826 05 Problem Anxiety F41.9 Active 43094507 Problem Essential hypertension I10 Active 24841431 Problem Bipolar disorder F31.9 Active 137 08437 Problem Chronic diastolic (congestive) heart failure I50.3 2 Active 294067107 Problem Psychophysiological insomnia F51.04 A ctive 062965552 Problem Type 2 diabetes mellitus with diabetic neuropathy, uns pecified E11.40 Active 13622044 ALLERGIES No Information ENCOUNTERS Encounter Location Date Diagnosis [place] [address] [address] Dec, [place] [address] [address] Dec, [place] [address] [address] Nov, [place] [address] [address] Nov, [place] [address] [address] Nov, Syncope, unspecified syncope type R55 [place] [address] [address] Nov, Mood disorder F39 [place] [address] [address] Oct, Chronic pain G89.29 [place] [address] [address] Oct, [place] [address] [address] Oct, Mood disorder F39 [facility] [address] [place] [address] Oct, [facility] [address] [place] [id number] [place] [address] 10 Oct, 2019 Bipolar disorder, in partial remission, most recent episode depressed F31.75 and Mild cognitive impairment G31.84 [facility] [address] [place] [id number] [place] [address] 04 Oct, 2019 Mood disorder F39 [facility] [address] [place] [address] Sep, [facility] [address] [place] [id number] [place] [address] Sep, Mood disorder F39 [facility] [address] [place] [id number] [place] [address] Sep, Bipolar disorder, in partial remission, most recent episode depressed F31.75 and Mild cognitive impairment G31.84 [facility] [address] [place] [address] Sep, Mood disorder F39 [facility] [address] [place] [id number] [place] [address] Sep, [facility] [address] [place] [id number] [place] [address] Sep, Mood disorder F39 [facility] [address] [place] [id number] [place] [address] Sep, [facility] [address] [place] [address] Aug, Mood disorder F39 [facility] [address] [place] [address] Aug, [facility] [address] [place] [id number] [place] [address] Aug, [facility] [address] [place] [id number] [place] [address] Aug, [facility] [address] [place] [id number] [place] [address] Aug, [facility] [address] [place] [id number] [place] [address] Aug, [facility] [address] [place] [id number] [place] [address] Aug, [facility] [address] [place] [id number] [place] [address] Aug, [facility] [address] [address] Aug, Essential hypertension I10 [facility] [address] [address] Aug, Bipolar disorder, in partial remission, most recent episode depressed F31.75 and Mild cognitive impairment G31.84 [facility] [address] [address] Aug, Mood disorder F39 [facility] [address] [address] Aug, [facility] [address] [address] Aug, Bipolar disorder, in partial remission, most recent episode depressed F31.75 and Mild cognitive impairment G31.84 [facility] [address] [place] [id number] [place] [address] Jul, Bipolar disorder, in partial remission, most recent episode depressed F31.75 and Mild cognitive impairment G31.84 [facility] [address] [place] [id number] [place] [address] Jul, Psychophysiological insomnia F51.04 [facility] [address] [place] [id number] [place] [address] Jul, [facility] [address] [address] Jul, [facility] [address] [address] Jul, [facility] [address] [place] [id number] [place] [address] Jul, [facility] [address] [address] Jul, [facility] [address] [address] Jul, [place] [address] [address] Jul, Bipolar disorder, in partial remission, most recent episode depressed F31.75 and Mild cognitive impairment G31.84 [place] [address] [address] Jul, Chronic pain G89.29 ; Diabetes E11.9 ; E ssential hypertension I10 ; Ill feeling R68.89 ; Local infection of the skin and subcutaneous tissue, unspecified L08.9 and Other injury of unspecified body region, initial encounter T14.8XXA [place] [address] [address] Jun, Bipolar disorder, in partial remission, most recent episode depressed F31.75 and Mild cognitive impairment G31.84 [place] [address] [address] Jun, [place] [address] [address] Jun, Bipolar disorder, in partial remission, most recent episode depressed F31.75 and Mild cognitive impairment G31.84 [place] [address] [address] Jun, Psychophysiological insomnia F51.04 [place] [address] [address] Jun, Psychophysiological insomnia F51.04 ; Ch ronic pain G89.29 ; Bipolar I disorder, most recent episode (or current) mixed, moderate F31.62 ; 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 ; Polyneuropathy associated with underlying disease G63 ; Type 2 diabetes mellitus with diabetic neuropathy, unspecified E11.40 ; FPC (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 Z79.4 and Hyperglycemia R73.9 [place] [address] [address] Jun, Bipolar disorder, in partial remission, most recent episode depressed F31.75 and Mild cognitive impairment G31.84 [place] [address] [address] Jun, [place] [address] [place] [address] Jun, Bipolar disorder F31.9 [place] [address] [address] May, Bipolar disorder, in partial remission, most recent episode depressed F31.75 and Mild cognitive impairment G31.84 [place] [address] [address] May, [place] [address] [address] Apr, Chronic pain G89.29 and Bipolar disorder F31.9 [place] [address] [address] Mar, Bipolar disorder F31.9 and Chronic pain G89.29 [place] [address] [address] Feb, Bipolar disorder F31.9 [place] [address] [address] Feb, Cellulitis of right upper extremity L03. 113 and Skin abrasion T14.8XXA [place] [address] [address] Feb, Bipolar disorder, in partial remission, most recent episode depressed F31.75 and Mild cognitive impairment G31.84 [place] [address] [address] Feb, Chronic pain G89.29 [place] [address] [place] [address] Feb, Bipolar disorder, in partial remission, most recent episode depressed F31.75 and Mild cognitive impairment G31.84 [facility] [address] [address] January, Bipolar disorder, in partial remission, most recent episode depressed F31.75 and Mild cognitive impairment G31.84 [facility] [address] [address] January, Chronic pain G89.29 and Bipolar disorder F31.9 [facility] [address] [address] January, Bipolar disorder, in partial remission, most recent episode depressed F31.75 and Mild cognitive impairment G31.84 [facility] [address] [address] Dec, [facility] [address] [address] Dec, Chronic pain G89.29 and Bipolar disorder F31.9 [facility] [address] [address] Dec, Edema of both lower extremities R60.0 [facility] [address] [address] Dec, Bipolar disorder F31.9 [facility] [address] [address] Dec, Bipolar disorder, in partial remission, most recent episode depressed F31.75 and Mild cognitive impairment G31.84 [facility] [address] [place] [id number] [place] [address] Nov, [facility] [address] [address] Nov, Chronic pain G89.29 [facility] [address] [address] Nov, Bipolar disorder, in partial remission, most recent episode depressed F31.75 and Mild cognitive impairment G31.84 [place] [address] [address] Nov, Bipolar disorder F31.9 [place] [address] [address] 04 Nov, 2018 Encounter for Medicare annual [...] unspecified morphology N40.1 and Essential hypertension I10 [address] [address] Oct, Chronic pain G89.29 [place] [address] [address] 18 Oct, 2018 Diabetes E11.9 [place] [address] [address] Oct, Bipolar I disorder, most recent episode (or current) mixed, moderate F31.62 and Mild cognitive impairment G31.84 [place] [address] [address] Oct, Bipolar I disorder, most recent episode (or current) mixed, moderate F31.62 and Mild cognitive impairment G31.84 [place] [address] [address] Sep, Bipolar I disorder, most recent episode (or current) mixed, moderate F31.62 and Mild cognitive impairment G31.84 [place] [address] [address] Sep, [place] [address] [address] Sep, Diabetes E11.9 ; Hypoxia R09.02 ; Hyperg lycemia R73.9 ; Therapeutic drug monitoring Z51.81 ; BMI 50.0-59.9, adult Z68.43 and Skin cancer C44.90 [place] [address] [address] Sep, Chronic pain G89.29 [place] [address] [address] Sep, Bipolar I disorder, most recent episode (or current) mixed, moderate F31.62 [place] [address] [address] Sep, [place] [address] [address] Sep, [place] [address] [address] Aug, Chronic pain G89.29 [place] [address] [address] Aug, Bipolar I disorder, most recent episode (or current) mixed, moderate F31.62 [place] [address] [address] Aug, Bipolar I disorder, most recent episode (or current) mixed, moderate F31.62 and Mild cognitive impairment G31.84 [place] [address] [address] Jul, [place] [address] [address] Jul, Chronic pain G89.29 [place] [address] [address] Jul, Bipolar I disorder, most recent episode (or current) mixed, moderate F31.62 and Mild cognitive impairment G31.84 [place] [address] [address] Jul, Bipolar I disorder, most recent episode (or current) mixed, moderate F31.62 and MCI (mild cognitive impairment) G31.84 [facility] [address] [place] [id number] [place] [address] Jul, [facility] [address] [address] Jul, [facility] [address] [place] [id number] [place] [address] Jul, Bipolar I disorder, most recent episode (or current) mixed, moderate F31.62 [facility] [address] [place] [id number] [place] [address] Jul, Chronic pain G89.29 [place] [address] [address] Jun, Bipolar I disorder, most recent episode (or current) mixed, moderate F31.62 [place] [address] [place] [address] [place] [address] Jun, Pre-procedure lab exam Z01.812 [place] [address] [place] [id number] [place] [address] Jun, [facility] [address] [place] [id number] [address] Jun, [place] [address] [place] [address] [place] [address] Jun, [place] [address] [address] Jun, Forgetfulness R68.89 ; Pre-syncope R55 ; Localized edema R60.0 ; Other iron deficiency anemia D50.8 and BMI 50.0-59.9, adult Z68.43 [facility] [address] [address] Jun, Chronic pain G89.29 [facility] [address] [place] [address] [place] [address] Jun, Chronic pain G89.29 [facility] [address] [address] Jun, Bipolar I disorder, most recent episode (or current) mixed, moderate F31.62 [place] [address] [address] May, Chronic pain G89.29 [place] [address] [address] Apr, [facility] [address] [address] Apr, Chronic pain G89.29 [place] [address] [address] Apr, Primary osteoarthritis of right knee M17 .11 [place] [address] [address] Mar, [place] [address] [address] Mar, BMI 50.0-59.9, adult Z68.43 and Bipolar disorder, in partial remission, most recent episode depressed F31.75 [place] [address] [address] Mar, Diabetes E11.9 ; Pure hypercholesterolem ia E78.00 ; Essential hypertension I10 ; Nausea with vomiting, unspecified R11.2 and Headache, unspecified headache type R51 [place] [address] [address] Mar, Bipolar I disorder, most recent episode (or current) mixed, moderate F31.62 [place] [address] [address] Mar, Bipolar I disorder, most recent episode (or current) mixed, moderate F31.62 [place] [address] [address] Mar, Chronic pain G89.29 [facility] [address] [address] Mar, Bipolar I disorder, most recent episode (or current) mixed, moderate F31.62 [facility] [address] [address] 18 Feb, 2018 Bipolar I disorder, most recent episode (or current) mixed, moderate F31.62 [facility] [address] [address] 14 Feb, 2018 Chronic pain G89.29 [place] [address] [address] Feb, Decubitus ulcer of right foot, stage 3 L 89.893 and BMI 50.0-59.9, adult Z68.43 [place] [address] [address] Feb, Bipolar I disorder, most recent episode (or current) mixed, moderate F31.62 [place] [address] [address] Feb, [place] [address] [address] January, [place] [address] [address] January, Chronic pain G89.29 [place] [address] [address] January, Bipolar I disorder, most recent episode (or current) mixed, moderate F31.62 [place] [address] [address] January, Bipolar I disorder, most recent episode (or current) mixed, moderate F31.62 [place] [address] [address] Dec, Bipolar I disorder, most recent episode (or current) mixed, moderate F31.62 and BMI 50.0-59.9, adult Z68.43 [facility] [address] [address] Dec, Bipolar I disorder, most recent episode (or current) mixed, moderate F31.62 [facility] [address] [address] Dec, Chronic pain G89.29 [place] [address] [address] Dec, DM neuro manif type II E11.49 ; Right fl ank pain R10.9 ; manager long term care 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 Z79.891 ; Encounter for medication monitoring Z51.81 and BMI 50.0-59.9, adult Z68.43 [place] [address] [address] Dec, Bipolar I disorder, most recent episode (or current) mixed, moderate F31.62 [place] [address] [address] Nov, Bipolar I disorder, most recent episode (or current) mixed, moderate F31.62 [place] [address] [address] Nov, Chronic pain G89.29 [place] [address] [address] Nov, Bipolar I disorder, most recent episode (or current) mixed, moderate F31.62 [place] [address] [address] Nov, Hypokalemia E87.6 [place] [address] [address] Nov, Bipolar I disorder, most recent episode (or current) mixed, moderate F31.62 [place] [address] [address] Oct, Chronic pain G89.29 [place] [address] [address] Oct, BMI 50.0-59.9, adult Z68.43 and Bipolar I disorder, most recent episode (or current) mixed, moderate F31.62 [place] [address] [address] Oct, Bipolar I disorder, most recent episode (or current) mixed, moderate F31.62 [place] [address] [address] Oct, [place] [address] [address] Oct, Hypokalemia E87.6 [place] [address] [address] Oct, DM neuro manif type II E11.49 [place] [address] [address] Oct, Bipolar I disorder, most recent episode (or current) mixed, moderate F31.62 [place] [address] [address] Oct, Bipolar I disorder, most recent episode (or current) mixed, moderate F31.62 [place] [address] [address] 14 Oct, 2017 Hyperkalemia E87.5 ; Falling R29.6 ; BMI 50.0-59.9, adult Z68.43 and Acute left ankle pain M25.572 [place] [address] [address] Oct, DM neuro manif type II E11.49 [place] [address] [address] Oct, [place] [address] [address] Sep, Chronic pain G89.29 [place] [address] [address] Sep, [place] [address] [address] Sep, Bilateral primary osteoarthritis of knee M17.0 [place] [address] [address] 18 Sep, 2017 Generalized edema R60.1 [place] [address] [address] 16 Sep, 2017 Bipolar I disorder, most recent episode (or current) mixed, moderate F31.62 [place] [address] [address] 15 Sep, 2017 Hypoxia R09.02 ; Other hypervolemia E87. 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 ; Anemia of chronic illness D63.8 and BMI 50.0-59.9, adult Z68.43 [place] [address] [address] Sep, [address] [address] Sep, Bipolar I disorder, most recent episode (or current) mixed, moderate F31.62 [place] [address] [address] Aug, Chronic pain G89.29 [place] [address] [address] 27 Aug, 2017 Generalized edema R60.1 [place] [address] [address] 18 Aug, 2017 [place] [address] [address] Aug, [place] [address] [address] 14 Aug, 2017 Bipolar I disorder, most recent episode (or current) mixed, moderate F31.62 [place] [address] [address] 07 Aug, 2017 Bipolar I disorder, most recent episode (or current) mixed, moderate F31.62 [place] [address] [address] Aug, Chronic pain G89.29 [facility] [address] [address] Jul, Bipolar I disorder, most recent episode (or current) mixed, moderate F31.62 [facility] [address] [address] Jul, Bipolar I disorder, most recent episode (or current) mixed, moderate F31.62 and BMI 60.0-69.9, adult Z68.44 [place] [address] [address] Jul, Bipolar I disorder, most recent episode (or current) mixed, moderate F31.62 [place] [address] [address] Jul, Chronic pain G89.29 [place] [address] [address] Jul, Bipolar I disorder, most recent episode (or current) mixed, moderate F31.62 [place] [address] [address] Jun, Polyneuropathy associated with underlyin g disease G63 and Diabetes E11.9 [place] [address] [address] Jun, Bipolar I disorder, most recent episode (or current) mixed, moderate F31.62 [place] [address] [address] Jun, Chronic pain G89.29 [place] [address] [address] May, Bipolar I disorder, most recent episode (or current) mixed, moderate F31.62 [place] [address] [address] May, Bipolar I disorder, most recent episode (or current) mixed, moderate F31.62 [place] [address] [address] 20 May, 2017 Diabetic polyneuropathy associated with type 2 diabetes mellitus E11.42 [facility] [address] [address] 18 May, 2017 Bipolar I disorder, most recent episode (or current) mixed, moderate F31.62 [place] [address] [address] 13 May, 2017 Bipolar I disorder, most recent episode (or current) mixed, moderate F31.62 [place] [address] [address] 12 May, 2017 Chronic pain G89.29 [place] [address] [address] 30 Apr, 2017 Bipolar I disorder, most recent episode (or current) mixed, moderate F31.62 [place] [address] [address] Apr, [place] [address] [address] Apr, Chronic pain G89.29 and DM neuro manif t ype II E11.49 [place] [address] [address] Apr, [place] [address] [address] Apr, Bipolar I disorder, most recent episode (or current) mixed, moderate F31.62 [place] [address] [address] 14 Apr, 2017 Chronic pain G89.29 [place] [address] [address] 03 Apr, 2017 Iliotibial band syndrome, left M76.32 [place] [address] [address] Apr, Bipolar I disorder, most recent episode (or current) mixed, moderate F31.62 [facility] [address] [address] Mar, Bipolar I disorder, most recent episode (or current) mixed, moderate F31.62 [facility] [address] [address] Mar, Bipolar I disorder, most recent episode (or current) mixed, moderate F31.62 [place] [address] [address] Mar, [place] [address] [address] Mar, Bipolar I disorder, most recent episode (or current) mixed, moderate F31.62 [place] [address] [address] Mar, Chronic pain G89.29 [place] [address] [address] Mar, Bipolar I disorder, most recent episode (or current) mixed, moderate F31.62 [place] [address] [address] Mar, Bipolar I disorder, most recent episode (or current) mixed, moderate F31.62 [place] [address] [address] Mar, Acute pain of left knee M25.562 ; Left h ip pain M25.552 ; Generalized edema R60.1 and Tongue swelling R22.0 [place] [address] [address] Mar, [place] [address] [address] Feb, Chronic pain G89.29 [place] [address] [address] [address] Feb, Diabetes E11.9 [place] [address] [address] January, Chronic pain G89.29 [facility] [address] [address] January, [facility] [address] [address] January, Bipolar I disorder, most recent episode (or current) mixed, moderate F31.62 [facility] [address] [address] Dec, Bipolar I disorder, most recent episode (or current) mixed, moderate F31.62 [facility] [address] [address] Dec, Chronic pain G89.29 [facility] [address] [address] Dec, Bipolar I disorder, most recent episode (or current) mixed, moderate F31.62 [place] [address] [address] Dec, Diabetes E11.9 ; Essential hypertension I10 ; Chronic pain G89.29 and Morbid obesity E66.01 [facility] [address] [address] Dec, [facility] [address] [address] Dec, Bipolar I disorder, most recent episode (or current) mixed, moderate F31.62 [facility] [address] [address] Dec, Bipolar I disorder, most recent episode (or current) mixed, moderate F31.62 [facility] [address] [address] Nov, Chronic pain G89.29 [facility] [address] [address] Nov, Bipolar I disorder, most recent episode (or current) mixed, moderate F31.62 [facility] [address] [address] Nov, [facility] [address] [address] Nov, Bipolar I disorder, most recent episode (or current) mixed, moderate F31.62 [facility] [address] [address] Nov, Bipolar I disorder, most recent episode (or current) mixed, moderate F31.62 [facility] [address] [address] Nov, [facility] [address] [address] Nov, [facility] [address] [address] Nov, [facility] [address] [address] Oct, Chronic pain G89.29 [facility] [address] [address] Oct, Bipolar I disorder, most recent episode (or current) mixed, moderate F31.62 [facility] [address] [address] Oct, [facility] [address] [address] Oct, Chronic pain G89.29 ; Diabetes E11.9 ; A nxiety F41.9 and 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 [facility] [address] [address] Oct, [facility] [address] [address] 06 Oct, 2016 Diabetes E11.9 [facility] [address] [address] Oct, Bipolar I disorder, most recent episode (or current) mixed, moderate F31.62 [facility] [address] [place] [id number] [place] [address] Sep, Chronic pain G89.29 [facility] [address] [address] Sep, Chronic pain G89.29 [facility] [address] [address] Aug, Chronic pain G89.29 [facility] [address] [address] Jul, [facility] [address] [address] Jul, Diabetes E11.9 [facility] [address] [address] Jul, Chronic pain G89.29 [facility] [address] [address] Jul, Bipolar I disorder, most recent episode (or current) mixed, moderate F31.62 [place] [address] [address] Jun, Bipolar I disorder, most recent episode (or current) mixed, moderate F31.62 [place] [address] [address] Jun, [place] [address] [address] Jun, Bipolar I disorder, most recent episode (or current) mixed, moderate F31.62 [place] [address] [address] 30 May, 2016 Insomnia, unspecified type G47.00 [place] [address] [address] May, Bipolar I disorder, most recent episode (or current) mixed, moderate F31.62 [place] [address] [address] 14 May, 2016 [facility] [address] [address] May, Bipolar I disorder, most recent episode (or current) mixed, moderate F31.62 [place] [address] [address] May, Diabetes E11.9 and Essential hypertensio n I10 [place] [address] [address] Apr, Chronic pain G89.29 [place] [address] [address] Apr, Bipolar I disorder, most recent episode (or current) mixed, moderate F31.62 [place] [address] [address] Apr, [place] [address] [address] Apr, [address] [address] Mar, Chronic pain G89.29 ; Headache, unspecif ied headache type R51 ; Neuropathy G62.9 ; Pain of right hip joint M25.551 and Essential hypertension I10 [place] [address] [address] Mar, Chronic pain G89.29 [place] [address] [address] Mar, Bipolar I disorder, most recent episode (or current) mixed, moderate F31.62 [place] [address] [address] Feb, Bipolar I disorder, most recent episode (or current) mixed, moderate F31.62 and Insomnia, unspecified type G47.00 [place] [address] [address] Feb, Chronic pain G89.[address] [address] Feb, Bipolar I disorder, most recent episode (or current) mixed, moderate F31.62 [facility] [address] [address] January, Bipolar I disorder, most recent episode (or current) mixed, moderate F31.62 [facility] [address] [address] January, Chronic pain G89.29 [facility] [address] [address] January, Chronic pain G89.29 and Essential hypert ension I10 [facility] [address] [address] January, Bipolar I disorder, most recent episode (or current) mixed, moderate F31.62 [facility] [address] [address] Dec, [facility] [address] [address] Dec, [facility] [address] [address] Dec, [facility] [address] [address] Dec, [facility] [address] [address] Nov, Reactive airway disease J45.909 [facility] [address] [address] Nov, [facility] [address] [address] Nov, [facility] [address] [address] Nov, [facility] [address] [address] Nov, [facility] [address] [address] Nov, Onychomycosis B35.1 ; Hammertoe M20.40 ; [place] or callus L84 and DM neuro manif type II E11.49 [place] [address] [address] Nov, Chronic pain G89.29 ; Leukocytosis D72.8 29 and Diabetes E11.[address] [address] Nov, [place] [address] [address] Oct, Bronchitis J40 [place] [address] [address] Oct, [place] [address] [address] Oct, [address] [address] Oct, Mastoiditis, unspecified laterality H70. 90 and Type 2 diabetes mellitus with complication E11.8 [place] [address] [address] Sep, [address] [address] Sep, Dysuria R30.0 ; Cough R05 ; Benign prost atic hyperplasia with lower urinary tract symptoms, unspecified morphology N40.1 ; Hypokalemia E87.6 and Eustachian tube dysfunction, unspecified laterality H69.80 [place] [address] [address] Sep, Moderate mixed bipolar I disorder F31.[address] [address] Sep, Hypokalemia E87.[address] [address] Sep, [place] [address] [address] Sep, Upper respiratory tract infection, unspe cified type J06.9 [facility] [address] [address] Aug, [facility] [address] [address] Aug, Dysuria R30.0 [facility] [address] [address] Aug, [facility] [address] [address] Jul, [facility] [address] [address] Jul, [facility] [address] [address] Jul, [facility] [address] [address] Jul, [facility] [address] [address] Jun, [facility] [address] [address] Jun, [facility] [address] [address] Jun, [facility] [address] [address] May, [facility] [address] [address] May, Bipolar I disorder, most recent episode (or current) mixed, moderate 296.62 [facility] [address] [address] 16 May, 2015 [facility] [address] [address] May, Bipolar I disorder, most recent episode (or current) mixed, moderate 296.62 and Major depressive disorder, recurrent episode, severe, specified as with psychotic behavior 296.34 [facility] [address] [address] May, Bipolar I disorder, most recent episode (or current) mixed, moderate 296.62 [facility] [address] [address] May, [facility] [address] [address] Apr, [facility] [address] [address] Apr, [facility] [address] [address] Apr, Unspecified disorder of kidney and urete r 593.9 and Diabetes mellitus type 2, uncontrolled 250.02 [facility] [address] [address] Apr, [facility] [address] [address] Apr, [facility] [address] [address] Apr, [facility] [address] [address] Apr, [facility] [address] [address] Apr, Diabetes mellitus type II, uncontrolled 250.02 [facility] [address] [address] Apr, [facility] [address] [address] Mar, [facility] [address] [address] Mar, [facility] [address] [address] Mar, [facility] [address] [address] Mar, Major depressive disorder, recurrent epi sode, severe, specified as with psychotic behavior 296.34 and Bipolar I disorder, most recent episode (or current) mixed, moderate 296.62 [facility] [address] [address] Mar, Diabetes 250.00 ; Anuria 788.5 ; Nausea and vomiting 787.01 and Diarrhea 787.91 [place] [address] [address] Mar, Diabetes 250.00 [facility] [address] [address] Mar, [facility] [address] [place] [address] Mar, Diabetes 250.00 [facility] [address] [address] Mar, [facility] [address] [place] [address] Mar, [facility] [address] [address] Mar, [facility] [address] [place] [address] Mar, [facility] [address] [place] [address] Mar, Bipolar I disorder, most recent episode (or current) mixed, moderate 296.62 and Major depressive disorder, recurrent episode, severe, specified as with psychotic behavior 296.[address] [address] Mar, Magnesium deficiency 275.2 ; Hypokalemia 276.8 ; Nausea & vomiting 787.01 and Diabetes mellitus type 2, uncontrolled 250.02 [facility] [address] [address] Feb, [facility] [address] [place] [address] Feb, Bipolar I disorder, most recent episode (or current) mixed, moderate 296.62 [place] [address] [address] Feb, Nausea and vomiting 787.01 ; Left elbow pain 719.42 ; Anuria 788.5 and Diabetes 250.00 [place] [address] [address] Feb, [place] [address] [address] Feb, Hypopotassemia 276.8 and Hypokalemia [address] [address] Feb, Hypopotassemia 276.8 and Hypokalemia [address] [address] Feb, Seborrheic keratoses 702.[address] [address] Feb, Hypopotassemia 276.8 and Low magnesium l evels 275.[address] [address] January, [address] [address] January, [address] [address] January, [address] [address] January, Scalp lesion 709.[address] [address] January, [address] [address] Dec, Tear of medial cartilage or meniscus of knee, current 836.0 and 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 [place] [address] 29 Dec, 2014 [facility] [id number] [place] [address] Dec, [facility] [id number] [place] [address] 28 Dec, 2014 Squamous cell carcinoma, 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 42 [facility] [id number] [place] [address] 14 Dec, 2014 [facility] [id number] [place] [address] Dec, [facility] [id number] [place] [address] 27 Nov, 2014 [facility] [id number] [place] [address] Nov, [facility] [id number] [place] [address] Nov, [facility] [id number] [place] [address] Nov, [facility] [id number] [place] [address] Nov, [facility] [id number] [place] [address] Nov, [facility] [id number] [place] [address] Nov, [facility] [id number] [place] [address] Nov, [facility] [id number] [place] [address] Nov, [facility] [id number] [place] [address] Nov, [facility] [id number] [place] [address] Nov, [facility] [id number] [place] [address] Nov, [facility] [address] [facility] [id number] [place] [address] Oct, [facility] [id number] [place] [address] Oct, [facility] [id number] [place] [address] Oct, [facility] [id number] [place] [address] Oct, [facility] [id number] [place] [address] Oct, [facility] [id number] [place] [address] Oct, [facility] [id number] [place] [address] Oct, [facility] [id number] [place] [address] Oct, [facility] [id number] [place] [address] Oct, [facility] [id number] [place] [address] Sep, [facility] [id number] [place] [address] Sep, [facility] [id number] [place] [address] Sep, [facility] [id number] [place] [address] Sep, [facility] [id number] [place] [address] Sep, [facility] [id number] [place] [address] Sep, [facility] [id number] [place] [address] Sep, [facility] [id number] [place] [address] Sep, [facility] [id number] [place] [address] Sep, [facility] [id number] [place] [address] Sep, [facility] [id number] [place] [address] Sep, [facility] [id number] [place] [address] Sep, [facility] [id number] [place] [address] Sep, [facility] [id number] [place] [address] Sep, [facility] [id number] [place] [address] Sep, [facility] [id number] [place] [address] Sep, [facility] [id number] [place] [address] Aug, [facility] [id number] [place] [address] Aug, [facility] [id number] [place] [address] Aug, [facility] [id number] [place] [address] 31 Aug, 2014 [facility] [id number] [place] [address] Aug, [facility] [id number] [place] [address] Aug, [facility] [id number] [place] [address] Aug, [facility] [id number] [place] [address] Aug, [facility] [address] [facility] [id number] [place] [address] Aug, [facility] [address] [facility] [id number] [place] [address] Aug, [facility] [address] [facility] [id number] [place] [address] Aug, [facility] OP [address] ID [facility] [id number] Aug, [facility] [address] [facility] [id number] [place] [address] Aug, [facility] [address] [facility] [id number] [place] [address] Aug, [facility] [id number] [place] [address] Aug, [facility] [id number] [place] [address] Aug, [facility] [id number] [place] [address] Aug, [facility] [id number] [place] [address] Aug, [facility] [id number] [place] [address] Aug, [facility] [id number] [place] [address] Aug, [facility] [id number] [place] [address] Aug, [facility] [address] [facility] [id number] [place] [address] Aug, [facility] [address] [facility] [id number] [place] [address] Aug, [facility] [id number] [place] [address] Aug, [facility] [id number] [place] [address] Aug, [facility] [id number] [place] [address] Aug, [facility] [id number] [place] [address] Aug, [facility] [id number] [place] [address] Aug, [facility] [id number] [place] [address] Aug, [facility] [id number] [place] [address] Aug, [facility] [id number] [place] [address] Jul, [facility] [id number] [place] [address] Jul, [facility] [id number] [place] [address] Jul, [facility] [id number] [place] [address] Jul, [facility] [id number] [place] [address] Jul, [facility] [id number] [place] [address] Jul, [facility] [id number] [place] [address] Jul, [facility] [id number] [place] [address] Jul, [facility] [id number] [place] [address] Jul, [facility] [id number] [place] [address] Jul, [facility] [id number] [place] [address] Jun, [facility] [id number] [place] [address] 22 Jun, 2014 [facility] [address] [facility] [id number] [place] [address] 16 Jun, 2014 [facility] [address] [facility] [id number] [place] [address] 16 Jun, 2014 [facility] [id number] [place] [address] 15 Jun, 2014 [facility] [id number] [place] [address] 15 Jun, 2014 [facility] [id number] [place] [address] Jun, [facility] [id number] [place] [address] Jun, [facility] [id number] [place] [address] Jun, [facility] [id number] [place] [address] Jun, [facility] [id number] [place] [address] 29 May, 2013 [facility] [id number] [place] [address] 29 May, 2013 [facility] [id number] [place] [address] 26 May, 2013 [facility] [place] [facility] [id number] [place] [address] 26 Sep, 2013 [facility] [place] [facility] [address] [facility] [id number] [place] [address] 17 Sep, 2013 [facility] [place] [facility] [id number] [place] [address] 17 Sep, 2013 [facility] [place] [facility] [id number] [place] [address] 15 May, 2013 [facility] [place] [facility] [id number] [place] [address] 15 May, 2013 [facility] [place] [facility] [address] [id number] [place] [address] 15 May, 2013 [facility] [place] [facility] [address] [facility] [id number] [place] [address] 15 May, 2013 [facility] [place] [facility] [id number] [place] [address] 10 May, 2013 [facility] [place] [facility] [id number] [place] [address] 10 May, 2013 [facility] [place] [facility] [address] [facility] [id number] [place] [address] 09 May, 2013 [facility] [place] [facility] [id number] [place] [address] May, 2013 [facility] [place] [facility] [id number] [place] [address] May, 2013 [facility] [place] [facility] [id number] [place] [address] May, 2013 [facility] [place] [facility] [id number] [place] [address] Apr, [facility] [place] [facility] [id number] [place] [address] Apr, [facility] [place] [facility] [id number] [place] [address] Apr, [facility] [place] [facility] [id number] [place] [address] Apr, [facility] [place] [facility] [id number] [place] [address] Apr, [facility] [place] [facility] [address] [facility] [id number] [place] [address] Apr, [facility] [place] [facility] [id number] [place] [address] Apr, [facility] [place] [facility] [id number] [place] [address] Apr, 2013 [facility] [place] [facility] [id number] [place] [address] Apr, [facility] [place] [facility] [address] [id number] [place] [address] Apr, [facility] [place] [facility] [address] [facility] [id number] [place] [address] Apr, [facility] [place] [facility] [id number] [place] [address] Apr, [facility] [place] [facility] [address] [facility] [id number] [place] [address] Apr, [facility] [place] [facility] [address] [facility] [id number] [place] [address] Apr, [facility] [place] [facility] [address] [facility] [id number] [place] [address] Apr, [facility] [place] [facility] [id number] [place] [address] Mar, [facility] [place] [facility] [id number] [place] [address] Mar, [facility] [place] [facility] [address] [facility] [id number] [place] [address] Mar, [facility] [place] [facility] [id number] [place] [address] Mar, [facility] [place] [facility] [id number] [place] [address] Mar, [facility] [place] [facility] [id number] [place] [address] Mar, [facility] [place] [facility] [address] [facility] [id number] [place] [address] Mar, [facility] [place] [facility] [address] [id number] [place] [address] Mar, [facility] [place] [facility] [address] [facility] [id number] [place] [address] Mar, [facility] [place] [facility] [id number] [place] [address] Mar, [facility] [place] [facility] [address] [id number] [place] [address] Mar, 2013 [facility] [place] [facility] [address] [id number] [place] [address] Mar, 2013 [facility] [place] [facility] [address] [facility] [id number] [place] [address] Mar, 2013 [facility] [place] [facility] [address] [facility] [id number] [place] [address] Mar, 2013 [facility] [place] [facility] [address] [facility] [id number] [place] [address] Mar, 2013 [facility] [place] [facility] [address] [facility] [id number] [place] [address] Mar, 2013 [facility] [place] [facility] [address] [facility] [id number] [place] [address] Mar, 2013 [facility] [place] [facility] [id number] [place] [address] Mar, 2013 [facility] [place] [id number] [place] [address] Feb, [facility] [facility] [address] [facility] [id number] [place] [address] Feb, [facility] [id number] [place] [address] Feb, [facility] [id number] [place] [address] Feb, [facility] [address] [facility] [id number] [place] [address] Feb, [facility] [address] [facility] [id number] [place] [address] Feb, [facility] [id number] [place] [address] Feb, [facility] [id number] [place] [address] Feb, [facility] [id number] [place] [address] Feb, [facility] [id number] [place] [address] Feb, [facility] [id number] [place] [address] Feb, [facility] [id number] [place] [address] Feb, [facility] [id number] [place] [address] Feb, [facility] [address] [facility] [id number] [place] [address] Feb, [facility] [id number] [place] [address] January, [facility] [id number] [place] [address] January, [facility] [id number] [place] [address] January, [facility] [id number] [place] [address] January, [facility] [id number] [place] [address] January, [facility] [id number] [place] [address] January, [facility] [id number] [place] [address] January, [facility] [id number] [place] [address] January, [facility] [id number] [place] [address] January, [facility] [id number] [place] [address] January, [facility] [id number] [place] [address] January, [facility] [id number] [place] [address] January, [facility] [address] [facility] [id number] [place] [address] January, [facility] [address] [facility] [id number] [place] [address] January, [facility] [id number] [place] [address] Dec, [facility] [id number] [place] [address] Dec, [facility] [address] [facility] [id number] [place] [address] Dec, [facility] [id number] [place] [address] Dec, [facility] [id number] [place] [address] Dec, [facility] [id number] [place] [address] Dec, [facility] [id number] [place] [address] Dec, [facility] [id number] [place] [address] Dec, [facility] [id number] [place] [address] Dec, [facility] [id number] [place] [address] Dec, [facility] [id number] [place] [address] Nov, [facility] [id number] [place] [address] Nov, [facility] [id number] [place] [address] Nov, [facility] [id number] [place] [address] Nov, [facility] [id number] [place] [address] 08 Nov, 2013 [facility] [address] [facility] [id number] [place] [address] Nov, [facility] [id number] [place] [address] Nov, [facility] [id number] [place] [address] Nov, [facility] [id number] [place] [address] Nov, [facility] [id number] [place] [address] Nov, [facility] [id number] [place] [address] Oct, [facility] [id number] [place] [address] Oct, [facility] [id number] [place] [address] Oct, [facility] [id number] [place] [address] Oct, [facility] [id number] [place] [address] Oct, [facility] [id number] [place] [address] Oct, [facility] [id number] [place] [address] 14 Oct, 2013 [facility] [id number] [place] [address] Oct, [facility] [id number] [place] [address] 05 Oct, 2013 [facility] [id number] [place] [address] 05 Oct, 2013 [facility] [id number] [place] [address] Oct, [facility] [id number] [place] [address] Oct, [facility] [id number] [place] [address] Oct, [facility] [id number] [place] [address] Oct, [facility] [id number] [place] [address] Sep, [facility] [id number] [place] [address] Sep, [facility] [id number] [place] [address] Sep, [facility] [id number] [place] [address] 15 Sep, 2013 [facility] [id number] [place] [address] Sep, [facility] [id number] [place] [address] Sep, [facility] [id number] [place] [address] Sep, [facility] [id number] [place] [address] Sep, [facility] [id number] [place] [address] Sep, [facility] [id number] [place] [address] 08 Sep, 2013 [facility] [id number] [place] [address] Aug, [facility] [id number] [place] [address] Aug, [facility] [id number] [place] [address] Jul, [facility] [id number] [place] [address] Jul, [facility] [id number] [place] [address] Jul, [facility] [id number] [place] [address] Jul, [facility] [id number] [place] [address] Jul, [facility] [id number] [place] [address] Jul, [facility] [id number] [place] [address] Jul, [facility] [id number] [place] [address] Jul, [facility] [id number] [place] [address] Jul, [facility] [id number] [place] [address] Jul, [facility] [id number] [place] [address] Jul, [facility] [id number] [place] [address] Jul, [facility] [id number] [place] [address] Jul, [facility] [id number] [place] [address] Jul, [facility] [id number] [place] [address] Jul, [facility] [id number] [place] [address] Jul, [facility] [id number] [place] [address] Jul, [facility] [id number] [place] [address] Jul, 2012 [facility] [address] [facility] [id number] [place] [address] Jul, 2012 [facility] [id number] [place] [address] Jun, 2012 [facility] [id number] [place] [address] Jun, 2012 [facility] [id number] [place] [address] Jun, 2012 [facility] [address] [facility] [id number] [place] [address] Jun, 2012 [facility] [id number] [place] [address] Jun, 2012 [facility] [id number] [place] [address] Jun, 2012 [facility] [id number] [place] [address] Jun, 2012 [facility] [id number] [place] [address] Jun, 2012 [facility] [id number] [place] [address] Jun, 2012 [facility] [id number] [place] [address] Jun, 2012 [facility] [id number] [place] [address] Jun, 2012 [facility] [id number] [place] [address] 26 May, 2012 [facility] [id number] [place] [address] 25 Sep, 2012 [facility] [id number] [place] [address] 19 Sep, 2012 [facility] [id number] [place] [address] 17 Sep, 2012 [facility] [id number] [place] [address] 11 May, 2012 [facility] [address] [id number] [place] [address] May, [facility] [address] [facility] [id number] [place] [address] May, [facility] [id number] [place] [address] May, [facility] [id number] [place] [address] Apr, [facility] [address] [facility] [id number] [place] [address] Apr, [facility] [id number] [place] [address] Apr, [facility] [id number] [place] [address] Apr, [facility] [id number] [place] [address] Apr, [facility] [id number] [place] [address] Mar, [facility] [id number] [place] [address] Mar, [facility] [id number] [place] [address] Mar, [facility] [id number] [place] [address] Mar, [facility] [id number] [place] [address] Mar, [facility] [id number] [place] [address] Mar, [facility] [id number] [place] [address] Mar, [facility] [id number] [place] [address] Mar, [facility] [id number] [place] [address] Feb, [facility] [id number] [place] [address] Feb, [facility] [id number] [place] [address] January, [facility] [id number] [place] [address] January, [facility] [id number] [place] [address] Dec, [facility] [id number] [place] [address] Dec, [facility] [id number] [place] [address] Nov, [facility] [id number] [place] [address] Nov, [facility] [id number] [place] [address] Nov, [facility] [id number] [place] [address] Nov, [facility] [id number] [place] [address] Oct, [facility] [id number] [place] [address] Oct, [facility] [id number] [place] [address] Oct, [facility] [id number] [place] [address] Oct, [facility] [id number] [place] [address] 16 Oct, 2012 [facility] [id number] [place] [address] 14 Oct, 2012 [facility] [id number] [place] [address] 08 Oct, 2012 [facility] [id number] [place] [address] Oct, [facility] [id number] [place] [address] Oct, [facility] [id number] [place] [address] Sep, [facility] [id number] [place] [address] Sep, [facility] [id number] [place] [address] Sep, [facility] [id number] [place] [address] Sep, [facility] [id number] [place] [address] Sep, [facility] [id number] [place] [address] Sep, [facility] [id number] [place] [address] Sep, [facility] [id number] [place] [address] Sep, [facility] [id number] [place] [address] Aug, [facility] [id number] [place] [address] Aug, [facility] [id number] [place] [address] Aug, [facility] [id number] [place] [address] Aug, [facility] [id number] [place] [address] Aug, [facility] [id number] [place] [address] Aug, [facility] [id number] [place] [address] Aug, [facility] [id number] [place] [address] Aug, [facility] [id number] [place] [address] Jul, [facility] [id number] [place] [address] Jul, [facility] [id number] [place] [address] Jul, [facility] [id number] [place] [address] Jul, [facility] [id number] [place] [address] Jul, [facility] [id number] [place] [address] Jul, [facility] [id number] [place] [address] Jun, [facility] [id number] [place] [address] Jun, [facility] [id number] [place] [address] Jun, [facility] [id number] [place] [address] Jun, [facility] [id number] [place] [address] Jun, [facility] [id number] [place] [address] Jun, [facility] [address] [id number] [place] [address] Jun, [facility] [id number] [place] [address] Jun, [facility] [id number] [place] [address] Jun, [facility] [id number] [place] [address] May, [facility] [id number] [place] [address] 24 May, 2012 [facility] [facility] [id number] [place] [address] May, [facility] [facility] [id number] [place] [address] Apr, [facility] [facility] [address] [facility] [id number] [place] [address] Apr, [facility] [facility] [id number] [place] [address] Apr, [facility] [id number] [place] [address] Apr, [facility] [id number] [place] [address] Apr, [facility] [id number] [place] [address] Apr, [facility] [facility] [id number] [place] [address] Mar, [facility] [facility] [id number] [place] [address] Mar, [facility] [facility] [id number] [place] [address] Mar, [facility] [facility] [id number] [place] [address] Mar, [facility] [id number] [place] [address] Feb, [facility] [id number] [place] [address] Feb, [facility] [id number] [place] [address] Feb, [facility] [facility] [id number] [place] [address] Feb, [facility] [facility] [address] [facility] [id number] [place] [address] Feb, [facility] [facility] [id number] [place] [address] January, [facility] [id number] [place] [address] January, [facility] [id number] [place] [address] January, [facility] [facility] [id number] [place] [address] January, [facility] [facility] [id number] [place] [address] January, [facility] [facility] [id number] [place] [address] January, [facility] [facility] [id number] [place] [address] Dec, [facility] [facility] [id number] [place] [address] Dec, [facility] [id number] [place] [address] Dec, [facility] [id number] [place] [address] Dec, [facility] [id number] [place] [address] Dec, [facility] [id number] [place] [address] Nov, [facility] [id number] [place] [address] 14 Nov, 2011 [facility] [id number] [place] [address] Nov, [facility] [id number] [place] [address] Nov, [facility] [id number] [place] [address] 29 Oct, 2011 [facility] [id number] [place] [address] Oct, [facility] [id number] [place] [address] 24 Oct, 2011 [facility] [address] [id number] [place] [address] Oct, [facility] [id number] [place] [address] Oct, [facility] [id number] [place] [address] Sep, [facility] [id number] [place] [address] Sep, [facility] [address] [id number] [place] [address] Sep, [facility] [id number] [place] [address] Sep, [facility] [address] [id number] [place] [address] Sep, [facility] [id number] [place] [address] Sep, [facility] [id number] [place] [address] Aug, [facility] [id number] [place] [address] Aug, [facility] [id number] [place] [address] Aug, [facility] [id number] [place] [address] Jul, [facility] [id number] [place] [address] Jul, [facility] [id number] [place] [address] Jul, [facility] [id number] [place] [address] Jul, [facility] [id number] [place] [address] Jun, [facility] [id number] [place] [address] Jun, [facility] [id number] [place] [address] Jun, [facility] [id number] [place] [address] Jun, [facility] [id number] [place] [address] Jun, [facility] [id number] [place] [address] Jun, [facility] [id number] [place] [address] Mar, [facility] [id number] [place] [address] Dec, [facility] [id number] [place] [address] Dec, [facility] [id number] [place] [address] Nov, [facility] [id number] [place] [address] 16 Nov, 2010 [facility] [id number] [place] [address] Sep, [facility] [id number] [place] [address] Aug, [facility] [id number] [place] [address] Aug, [facility] [id number] [place] [address] Aug, [facility] [id number] [place] [address] 29 Aug, 2010 [facility] [id number] [place] [address] 27 Aug, 2010 [facility] [id number] [place] [address] 14 Aug, 2010 [facility] [id number] [place] [address] 08 Aug, 2010 [facility] [id number] [place] [address] 08 Aug, 2010 [facility] [id number] [place] [address] 07 Aug, 2010 [facility] [id number] [place] [address] 06 Aug, 2010 [facility] [id number] [place] [address] Aug, [facility] [id number] [place] [address] Aug, [facility] [id number] [place] [address] Jul, [facility] [id number] [place] [address] Jul, [facility] [id number] [place] [address] 30 Jul, 2010 [facility] [id number] [place] [address] 17 Jul, 2010 [facility] [id number] [place] [address] 08 Jul, 2010 [facility] [id number] [place] [address] Jul, [facility] [id number] [place] [address] 24 Jun, 2010 [facility] [id number] [place] [address] Jun, [facility] [address] [facility] [id number] [place] [address] 19 Jun, 2010 [facility] [id number] [place] [address] 13 Jun, 2010 [facility] [id number] [place] [address] 16 Apr, 2010 [facility] [id number] [place] [address] Mar, [facility] [id number] [place] [address] Feb, [facility] [id number] [place] [address] January, [facility] [id number] [place] [address] 15 Dec, 2009 [facility] [id number] [place] [address] Nov, [facility] [id number] [place] [address] Aug, [facility] [id number] [place] [address] Aug, [facility] [id number] [place] [address] Aug, [facility] [id number] [place] [address] Jul, [facility] [id number] [place] [address] Jul, [facility] [id number] [place] [address] Jul, [facility] [id number] [place] [address] 30 Jun, 2009 [facility] [id number] [place] [address] 29 Jun, 2009 [facility] [id number] [place] [address] Jun, [facility] [id number] [place] [address] Jun, [facility] [id number] [place] [address] Jun, [facility] [id number] [place] [address] Jun, [facility] [id number] [place] [address] Apr, [facility] [id number] [place] [address] Apr, [facility] [address] [address] Feb, [facility] [id number] [place] [address] January, [facility] [id number] [place] [address] Dec, IMMUNIZATIONS No Known Immunizations SOCIAL HISTORY Never Assessed REASON FOR VISIT PLAN OF CARE VITAL SIGNS MEDICATIONS Unknown Medications RESULTS No Results PROCEDURES Procedure Date Ordered Result Body Site PSYTX PT&/FAMILY 45 MINUTES Oct 29, 2013 INSTRUCTIONS MEDICATIONS ADMINISTERED No Known Medications MEDICAL (GENERAL) HISTORY Type Description Date Medical History type II diabetes Medical History coronary artery disease stress test 15 Medical History chronic obstructive pulmonary disease (C OPD) Medical History gastroesophageal reflux disease (GERD) Medical History acute renal failure Medical History erectile dysfunction Medical History hyperlipidemia Medical History obesity Medical History skin cancer-basal cell R denominational (removed ) Medical History Arthritis Medical History [...] 2009 Surgical History colonoscopy 2009 ([facility]), 2013 ([facility] ) Surgical History heart cath: CAD w/ [...] History inability to urinate 09/16/15 Hospitalization History [facility] health e[facility] 1999's Hospitalization History hyperkalemia 10/2017 Hospitalization History fluid in lung
--- OUTSIDE RECORDS SUMMARY | 2020-03-01 16:42 | XMS REPORT ---
Author Author Michele WASHBURN Organization 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 Role Phone NOEMI WASHBURN Unavailable PROBLEMS Type Condition ICD9-CM Code QAI96-FB Code Onset Dates Condition S tatus SNOMED Code Problem DM neuro manif type II E11.49 Active 59568992 Problem Chronic pain G89.29 Active 5607605 1 Problem Diabetes E11.9 Active 20589822 Problem Reactive airway disease J45.909 Active 892257963379 Problem Leukocytosis D72.829 Active 8233822 06 Problem Insomnia, unspecified type G47.00 Act sharon 099692790 Problem Bipolar I disorder, most recent episode (or curr ent) mixed, moderate F31.62 Active 80116906 Problem Primary osteoarthritis of right knee M17.11 Active 622871264509778 Problem Cough R05 Active 91088325 Problem Pure hypercholesterolemia E78.00 Acti ve 933657130 Problem Dysuria R30.0 Active 60994680 Problem Benign prostatic hyperplasia with lower urinary tract symptoms, unspecified morphology N40.1 Active 78246 6007 Problem Eustachian tube dysfunction, unspecified laterality H69.80 Active 76356379 Problem Polyneuropathy associated with underlying disease G63 Active 519142337 Problem Diabetic polyneuropathy associated with type 2 d iabetes mellitus E11.42 Active 47896105 Problem Anemia of chronic illness D63.8 Acti ve 997524817 Problem Chronic lymphocytic leukemia C91.10 A ctive 28750717 Problem Bilateral primary osteoarthritis of knee M17.0 Active 890856704 Problem 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 Active 626101805 Problem Eye exam abnormal R93.8 Active 16 9592309 Problem Retinal edema H35.81 Active 484934 6 Problem Lymphocytosis D72.820 Active 617044 09 Problem Bipolar disorder, in partial remission, most rec ent episode depressed F31.75 Active 95160215 Problem Hypokalemia E87.6 Active 16384787 Problem Falling R29.6 Active 705502501 Problem Pressure ulcer of other site, stage 3 L89.893 Active 960396149 Problem Other iron deficiency anemia D50.8 A ctive 50765721 Problem Mild cognitive impairment G31.84 Acti ve 383277857 Problem Skin cancer C44.90 Active 84050951 7 Problem senior living (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 Z79.4 Active 871301501 Problem Morbid obesity E66.01 Active 95538 6002 Problem Mood disorder F39 Active 914889 05 Problem Anxiety F41.9 Active 43519066 Problem Essential hypertension I10 Active 97725009 Problem Bipolar disorder F31.9 Active 137 71559 Problem Chronic diastolic (congestive) heart failure I50.3 2 Active 288428872 Problem Psychophysiological insomnia F51.04 A ctive 067647419 Problem Type 2 diabetes mellitus with diabetic neuropathy, uns pecified E11.40 Active 47285675 ALLERGIES No Information ENCOUNTERS Encounter Location Date Diagnosis [place] [address] [address] Dec, [place] [address] [address] Dec, [place] [address] [address] Nov, [place] [address] [address] Nov, [place] [address] [address] Nov, Syncope, unspecified syncope type R55 [place] [address] [address] Nov, Mood disorder F39 [place] [address] [address] Oct, Chronic pain G89.29 [place] [address] [address] Oct, [place] [address] [address] Oct, Mood disorder F39 [facility] [address] [facility] [place] [address] Oct, [facility] [address] [facility] [place] [address] Oct, Bipolar disorder, in partial remission, most recent episode depressed F31.75 and Mild cognitive impairment G31.84 [facility] [address] [place] [id number] [place] [address] 04 Oct, [address] [facility] [address] [id number] [place] [address] Sep, [facility] [address] [place] [id number] [place] [address] Sep, Mood disorder F39 [facility] [address] [place] [id number] [place] [address] Sep, Bipolar disorder, in partial remission, most recent episode depressed F31.75 and Mild cognitive impairment G31.84 [facility] [address] [facility] [place] [address] Sep, Mood disorder F39 [facility] [address] [place] [id number] [place] [address] Sep, [facility] [address] [facility] [place] [address] Sep, Mood disorder F39 [facility] [address] [facility] [place] [address] Sep, [facility] [address] [facility] [place] [address] Aug, Mood disorder F39 [facility] [address] [place] [id number] [place] [address] Aug, [facility] [address] [facility] [place] [address] Aug, [facility] [address] [id number] [place] [address] Aug, [facility] [address] [place] [id number] [place] [address] Aug, [facility] [address] [place] [id number] [place] [address] Aug, [facility] [address] [place] [id number] [place] [address] Aug, [facility] [address] [address] Aug, [facility] [address] [address] Aug, Essential hypertension I10 [facility] [address] [address] Aug, Bipolar disorder, in partial remission, most recent episode depressed F31.75 and Mild cognitive impairment G31.84 [facility] [address] [address] Aug, Mood disorder F39 [facility] [address] [address] Aug, [facility] [address] [address] Aug, Bipolar disorder, in partial remission, most recent episode depressed F31.75 and Mild cognitive impairment G31.84 [facility] [address] [address] Jul, Bipolar disorder, in partial remission, most recent episode depressed F31.75 and Mild cognitive impairment G31.84 [facility] [address] [place] [id number] [place] [address] Jul, Psychophysiological insomnia F51.04 [facility] [address] [place] [id number] [place] [address] Jul, [facility] [address] [address] Jul, [facility] [address] [address] Jul, [facility] [address] [place] [id number] [place] [address] Jul, [facility] [address] [address] Jul, [facility] [address] [address] Jul, [place] [address] [address] Jul, Bipolar disorder, in partial remission, most recent episode depressed F31.75 and Mild cognitive impairment G31.84 [place] [address] [address] Jul, Chronic pain G89.29 ; Diabetes E11.9 ; E ssential hypertension I10 ; Ill feeling R68.89 ; Local infection of the skin and subcutaneous tissue, unspecified L08.9 and Other injury of unspecified body region, initial encounter T14.8XXA [place] [address] [place] [id number] [place] [address] Jun, Bipolar disorder, in partial remission, most recent episode depressed F31.75 and Mild cognitive impairment G31.84 [place] [address] [address] Jun, [place] [address] [address] Jun, Bipolar disorder, in partial remission, most recent episode depressed F31.75 and Mild cognitive impairment G31.84 [place] [address] [place] [id number] [place] [address] Jun, Psychophysiological insomnia F51.04 [place] [address] [address] Jun, Psychophysiological insomnia F51.04 ; Ch ronic pain G89.29 ; Bipolar I disorder, most recent episode (or current) mixed, moderate F31.62 ; 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 ; Polyneuropathy associated with underlying disease G63 ; Type 2 diabetes mellitus with diabetic neuropathy, unspecified E11.40 ; senior living (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 Z79.4 and Hyperglycemia R73.[address] [address] Jun, Bipolar disorder, in partial remission, most recent episode depressed F31.75 and Mild cognitive impairment G31.[address] [address] Jun, [address] [address] Jun, Bipolar disorder F31.[address] [address] May, Bipolar disorder, in partial remission, most recent episode depressed F31.75 and Mild cognitive impairment G31.[address] [address] May, [address] [address] Apr, Chronic pain G89.29 and Bipolar disorder F31.[address] [address] Mar, Bipolar disorder F31.9 and Chronic pain G89.[address] [address] Feb, Bipolar disorder F31.[address] [address] Feb, Cellulitis of right upper extremity L03. 113 and Skin abrasion T14.8XXA [address] [address] Feb, Bipolar disorder, in partial remission, most recent episode depressed F31.75 and Mild cognitive impairment G31.[address] [address] Feb, Chronic pain G89.[id number] [place] [address] Feb, Bipolar disorder, in partial remission, most recent episode depressed F31.75 and Mild cognitive impairment G31.84 [facility] [address] [address] January, Bipolar disorder, in partial remission, most recent episode depressed F31.75 and Mild cognitive impairment G31.84 [facility] [address] [address] January, Chronic pain G89.29 and Bipolar disorder F31.9 [facility] [address] [address] January, Bipolar disorder, in partial remission, most recent episode depressed F31.75 and Mild cognitive impairment G31.84 [place] [address] [address] Dec, [place] [address] [address] Dec, Chronic pain G89.29 [address] F31.9 [facility] [address] [address] Dec, Edema of both lower extremities R60.0 [facility] [address] [address] Dec, Bipolar disorder F31.9 [facility] [address] [address] Dec, Bipolar disorder, in partial remission, most recent episode depressed F31.75 and Mild cognitive impairment G31.84 [facility] [address] [place] [id number] [place] [address] Nov, [facility] [address] [address] Nov, Chronic pain G89.29 [facility] [address] [address] Nov, Bipolar disorder, in partial remission, most recent episode depressed F31.75 and Mild cognitive impairment G31.84 [place] [address] [address] Nov, Bipolar disorder F31.9 [place] [address] [address] 04 Nov, 2018 Encounter for Medicare annual [...] unspecified morphology N40.1 and Essential hypertension I10 [place] [address] [address] Oct, Chronic pain G89.29 [place] [address] [address] 18 Oct, 2018 Diabetes E11.9 [place] [address] [address] 11 Oct, 2018 Bipolar I disorder, most recent episode (or current) mixed, moderate F31.62 and Mild cognitive impairment G31.84 [place] [address] [address] Oct, Bipolar I disorder, most recent episode (or current) mixed, moderate F31.62 and Mild cognitive impairment G31.84 [place] [address] [address] Sep, Bipolar I disorder, most recent episode (or current) mixed, moderate F31.62 and Mild cognitive impairment G31.84 [place] [address] [address] Sep, [place] [address] [address] Sep, Diabetes E11.9 ; Hypoxia R09.02 ; Hyperg lycemia R73.9 ; Therapeutic drug monitoring Z51.81 ; BMI 50.0-59.9, adult Z68.43 and Skin cancer C44.90 [place] [address] [address] Sep, Chronic pain G89.29 [place] [address] [place] [address] Sep, Bipolar I disorder, most recent episode (or current) mixed, moderate F31.62 [place] [address] [address] Sep, [place] [address] [address] Sep, [place] [address] [address] Aug, Chronic pain G89.29 [place] [address] [address] Aug, Bipolar I disorder, most recent episode (or current) mixed, moderate F31.62 [place] [address] [address] Aug, Bipolar I disorder, most recent episode (or current) mixed, moderate F31.62 and Mild cognitive impairment G31.84 [place] [address] [address] Jul, [place] [address] [address] Jul, Chronic pain G89.29 [place] [address] [address] Jul, Bipolar I disorder, most recent episode (or current) mixed, moderate F31.62 and Mild cognitive impairment G31.84 [place] [address] [address] Jul, Bipolar I disorder, most recent episode (or current) mixed, moderate F31.62 and MCI (mild cognitive impairment) G31.84 [facility] [address] [place] [id number] [place] [address] Jul, [facility] [address] [place] [id number] [place] [address] Jul, [facility] [address] [place] [id number] [place] [address] Jul, Bipolar I disorder, most recent episode (or current) mixed, moderate F31.62 [place] [address] [place] [id number] [place] [address] Jul, Chronic pain G89.29 [place] [address] [address] Jun, Bipolar I disorder, most recent episode (or current) mixed, moderate F31.62 [place] [address] [place] [id number] [place] [address] Jun, Pre-procedure lab exam Z01.812 [place] [address] [place] [id number] [place] [address] Jun, [place] [address] [place] [id number] [address] Jun, [place] [address] [address] Jun, [address] [address] Jun, Forgetfulness R68.89 ; Pre-syncope R55 ; Localized edema R60.0 ; Other iron deficiency anemia D50.8 and BMI 50.0-59.9, adult Z68.43 [place] [address] [address] Jun, Chronic pain G89.29 [facility] [address] [place] [id number] [place] [address] Jun, Chronic pain G89.29 [place] [address] [address] Jun, Bipolar I disorder, most recent episode (or current) mixed, moderate F31.62 [place] [address] [address] May, Chronic pain G89.29 [place] [address] [address] Apr, [place] [address] [address] Apr, Chronic pain G89.29 [place] [address] [address] Apr, Primary osteoarthritis of right knee M17 .11 [place] [address] [address] Mar, [place] [address] [address] Mar, BMI 50.0-59.9, adult Z68.43 and Bipolar disorder, in partial remission, most recent episode depressed F31.75 [place] [address] [address] Mar, Diabetes E11.9 ; Pure hypercholesterolem ia E78.00 ; Essential hypertension I10 ; Nausea with vomiting, unspecified R11.2 and Headache, unspecified headache type R51 [place] [address] [address] Mar, Bipolar I disorder, most recent episode (or current) mixed, moderate F31.62 [place] [address] [address] Mar, Bipolar I disorder, most recent episode (or current) mixed, moderate F31.62 [place] [address] [address] Mar, Chronic pain G89.29 [place] [address] [address] Mar, Bipolar I disorder, most recent episode (or current) mixed, moderate F31.62 [place] [address] [address] Feb, Bipolar I disorder, most recent episode (or current) mixed, moderate F31.62 [place] [address] [address] Feb, Chronic pain G89.29 [place] [address] [address] Feb, Decubitus ulcer of right foot, stage 3 L 89.893 and BMI 50.0-59.9, adult Z68.43 [place] [address] [address] Feb, Bipolar I disorder, most recent episode (or current) mixed, moderate F31.62 [place] [address] [address] Feb, [place] [address] [address] January, [place] [address] [address] January, Chronic pain G89.29 [place] [address] [address] January, Bipolar I disorder, most recent episode (or current) mixed, moderate F31.62 [place] [address] [address] January, Bipolar I disorder, most recent episode (or current) mixed, moderate F31.62 [place] [address] [address] Dec, Bipolar I disorder, most recent episode (or current) mixed, moderate F31.62 and BMI 50.0-59.9, adult Z68.43 [place] [address] [address] Dec, Bipolar I disorder, most recent episode (or current) mixed, moderate F31.62 [facility] [address] [address] Dec, Chronic pain G89.29 [facility] [address] [address] Dec, DM neuro manif type II E11.49 ; Right fl ank pain R10.9 ; senior living 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 Z79.891 ; Encounter for medication monitoring Z51.81 and BMI 50.0-59.9, adult Z68.43 [place] [address] [address] Dec, Bipolar I disorder, most recent episode (or current) mixed, moderate F31.62 [place] [address] [address] Nov, Bipolar I disorder, most recent episode (or current) mixed, moderate F31.62 [place] [address] [address] Nov, Chronic pain G89.29 [place] [address] [address] Nov, Bipolar I disorder, most recent episode (or current) mixed, moderate F31.62 [place] [address] [address] Nov, Hypokalemia E87.6 [place] [address] [address] Nov, Bipolar I disorder, most recent episode (or current) mixed, moderate F31.62 [place] [address] [address] Oct, Chronic pain G89.29 [facility] [address] [address] Oct, BMI 50.0-59.9, adult Z68.43 and Bipolar I disorder, most recent episode (or current) mixed, moderate F31.62 [facility] [address] [address] Oct, Bipolar I disorder, most recent episode (or current) mixed, moderate F31.62 [facility] [address] [address] Oct, [facility] [address] [address] Oct, Hypokalemia E87.6 [place] [address] [address] Oct, DM neuro manif type II E11.49 [place] [address] [address] Oct, Bipolar I disorder, most recent episode (or current) mixed, moderate F31.62 [place] [address] [address] Oct, Bipolar I disorder, most recent episode (or current) mixed, moderate F31.62 [place] [address] [address] Oct, Hyperkalemia E87.5 ; Falling R29.6 ; BMI 50.0-59.9, adult Z68.43 and Acute left ankle pain M25.572 [place] [address] [address] Oct, DM neuro manif type II E11.49 [place] [address] [address] Oct, [place] [address] [address] Sep, Chronic pain G89.29 [place] [address] [address] Sep, [place] [address] [address] Sep, Bilateral primary osteoarthritis of knee M17.0 [place] [address] [address] 18 Sep, 2017 Generalized edema R60.1 [place] [address] [address] 16 Sep, 2017 Bipolar I disorder, most recent episode (or current) mixed, moderate F31.62 [place] [address] [address] 15 Sep, 2017 Hypoxia R09.02 ; Other hypervolemia E87. 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 ; Anemia of chronic illness D63.8 and BMI 50.0-59.9, adult Z68.43 [place] [address] [address] Sep, [place] [address] [address] Sep, Bipolar I disorder, most recent episode (or current) mixed, moderate F31.62 [place] [address] [address] 28 Aug, 2017 Chronic pain G89.29 [place] [address] [address] 27 Aug, 2017 Generalized edema R60.1 [place] [address] [address] 18 Aug, 2017 [place] [address] [address] 18 Aug, 2017 [place] [address] [address] 14 Aug, 2017 Bipolar I disorder, most recent episode (or current) mixed, moderate F31.62 [place] [address] [address] 07 Aug, 2017 Bipolar I disorder, most recent episode (or current) mixed, moderate F31.62 [place] [address] [address] Aug, Chronic pain G89.29 [place] [address] [place] [address] Jul, Bipolar I disorder, most recent episode (or current) mixed, moderate F31.62 [place] [address] [address] Jul, Bipolar I disorder, most recent episode (or current) mixed, moderate F31.62 and BMI 60.0-69.9, adult Z68.44 [place] [address] [place] [address] Jul, Bipolar I disorder, most recent episode (or current) mixed, moderate F31.62 [place] [address] [address] Jul, Chronic pain G89.29 [place] [address] [place] [address] Jul, Bipolar I disorder, most recent episode (or current) mixed, moderate F31.62 [place] [address] [address] Jun, Polyneuropathy associated with underlyin g disease G63 and Diabetes E11.[address] [address] Jun, Bipolar I disorder, most recent episode (or current) mixed, moderate F31.62 [place] [address] [address] Jun, Chronic pain G89.29 [place] [address] [place] [address] May, Bipolar I disorder, most recent episode (or current) mixed, moderate F31.62 [place] [address] [place] [address] May, Bipolar I disorder, most recent episode (or current) mixed, moderate F31.62 [place] [address] [address] 20 May, 2017 Diabetic polyneuropathy associated with type [address] [facility] [address] [address] 18 May, 2017 Bipolar I disorder, most recent episode (or current) mixed, moderate F31.62 [place] [address] [address] 13 May, 2017 Bipolar I disorder, most recent episode (or current) mixed, moderate F31.62 [place] [address] [address] 12 May, 2017 Chronic pain G89.29 [place] [address] [address] 30 Apr, 2017 Bipolar I disorder, most recent episode (or current) mixed, moderate F31.62 [place] [address] [address] Apr, [place] [address] [address] Apr, Chronic pain G89.29 and DM neuro manif t ype II E11.49 [place] [address] [address] Apr, [place] [address] [address] Apr, Bipolar I disorder, most recent episode (or current) mixed, moderate F31.62 [place] [address] [address] 14 Apr, 2017 Chronic pain G89.29 [place] [address] [address] Apr, Iliotibial band syndrome, left M76.32 [facility] [address] [address] Apr, Bipolar I disorder, most recent episode (or current) mixed, moderate F31.62 [facility] [address] [address] Mar, Bipolar I disorder, most recent episode (or current) mixed, moderate F31.62 [facility] [address] [address] Mar, Bipolar I disorder, most recent episode (or current) mixed, moderate F31.62 [facility] [address] [address] Mar, [place] [address] [address] Mar, Bipolar I disorder, most recent episode (or current) mixed, moderate F31.62 [place] [address] [address] Mar, Chronic pain G89.29 [place] [address] [address] Mar, Bipolar I disorder, most recent episode (or current) mixed, moderate F31.62 [place] [address] [address] Mar, Bipolar I disorder, most recent episode (or current) mixed, moderate F31.62 [place] [address] [address] Mar, Acute pain of left knee M25.562 ; Left h ip pain M25.552 ; Generalized edema R60.1 and Tongue swelling R22.0 [place] [address] [address] Mar, [place] [address] [address] Feb, Chronic pain G89.29 [place] [address] [address] Feb, Diabetes E11.9 [place] [address] [address] January, Chronic pain G89.29 [facility] [address] [address] January, [facility] [address] [address] January, Bipolar I disorder, most recent episode (or current) mixed, moderate F31.62 [facility] [address] [address] Dec, Bipolar I disorder, most recent episode (or current) mixed, moderate F31.62 [facility] [address] [address] Dec, Chronic pain G89.29 [facility] [address] [address] Dec, Bipolar I disorder, most recent episode (or current) mixed, moderate F31.62 [place] [address] [address] Dec, Diabetes E11.9 ; Essential hypertension I10 ; Chronic pain G89.29 [address] Morbid obesity E66.01 [facility] [address] [address] Dec, [facility] [address] [address] Dec, Bipolar I disorder, most recent episode (or current) mixed, moderate F31.62 [facility] [address] [address] Dec, Bipolar I disorder, most recent episode (or current) mixed, moderate F31.62 [facility] [address] [address] Nov, Chronic pain G89.29 [facility] [address] [address] Nov, Bipolar I disorder, most recent episode (or current) mixed, moderate F31.62 [place] [address] [address] Nov, [facility] [address] [address] Nov, Bipolar I disorder, most recent episode (or current) mixed, moderate F31.62 [facility] [address] [address] Nov, Bipolar I disorder, most recent episode (or current) mixed, moderate F31.62 [facility] [address] [address] Nov, [facility] [address] [address] Nov, [facility] [address] [address] Nov, [facility] [address] [address] Oct, Chronic pain G89.29 [facility] [address] [address] Oct, Bipolar I disorder, most recent episode (or current) mixed, moderate F31.62 [facility] [address] [address] Oct, 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 [address] [address] Oct, [facility] [address] [address] Oct, Diabetes E11.9 [facility] [address] [address] Oct, Bipolar I disorder, most recent episode (or current) mixed, moderate F31.62 [facility] [address] [address] Sep, Chronic pain G89.29 [facility] [address] [address] Sep, Chronic pain G89.29 [facility] [address] [address] Aug, Chronic pain G89.29 [facility] [address] [address] Jul, [facility] [address] [address] Jul, Diabetes E11.9 [facility] [address] [address] Jul, Chronic pain G89.29 [facility] [address] [address] Jul, Bipolar I disorder, most recent episode (or current) mixed, moderate F31.62 [place] [address] [address] Jun, Bipolar I disorder, most recent episode (or current) mixed, moderate F31.62 [place] [address] [address] Jun, [facility] [address] [address] Jun, Bipolar I disorder, most recent episode (or current) mixed, moderate F31.62 [place] [address] [address] 30 May, 2016 Insomnia, unspecified type G47.00 [place] [address] [address] May, Bipolar I disorder, most recent episode (or current) mixed, moderate F31.62 [place] [address] [address] 14 May, 2016 [place] [address] [address] May, Bipolar I disorder, most recent episode (or current) mixed, moderate F31.62 [place] [address] [address] May, Diabetes E11.9 and Essential hypertensio n I10 [place] [address] [address] Apr, Chronic pain G89.[address] [address] Apr, Bipolar I disorder, most recent episode (or current) mixed, moderate F31.62 [place] [address] [address] Apr, [place] [address] [address] Apr, [address] [address] Mar, Chronic pain G89.29 ; Headache, unspecif ied headache type R51 ; Neuropathy G62.9 ; Pain of right hip joint M25.551 and Essential hypertension I10 [place] [address] [address] Mar, Chronic pain G89.29 [place] [address] [address] Mar, Bipolar I disorder, most recent episode (or current) mixed, moderate F31.62 [place] [address] [address] Feb, Bipolar I disorder, most recent episode (or current) mixed, moderate F31.62 and Insomnia, unspecified type G47.00 [place] [address] [address] Feb, Chronic pain G89.29 [place] [address] [address] Feb, Bipolar I disorder, most recent episode (or current) mixed, moderate F31.62 [facility] [address] [address] January, Bipolar I disorder, most recent episode (or current) mixed, moderate F31.62 [facility] [address] [address] January, Chronic pain G89.29 [facility] [address] [address] January, Chronic pain G89.29 and Essential hypert ension I10 [facility] [address] [address] January, Bipolar I disorder, most recent episode (or current) mixed, moderate F31.62 [facility] [address] [address] Dec, [facility] [address] [address] Dec, [facility] [address] [address] Dec, [facility] [address] [address] Dec, [facility] [address] [address] Nov, Reactive airway disease J45.909 [facility] [address] [address] Nov, [facility] [address] [address] Nov, [facility] [address] [address] 30 Nov, 2015 [facility] [address] [address] Nov, [facility] [address] [address] Nov, Onychomycosis B35.1 ; Hammertoe M20.40 ; [place] or callus L84 and DM neuro manif type II E11.49 [place] [address] [address] Nov, Chronic pain G89.29 ; Leukocytosis D72.8 29 and Diabetes E11.9 [place] [address] [address] Nov, [place] [address] [address] Oct, Bronchitis J40 [place] [address] [address] Oct, [place] [address] [address] Oct, [address] [address] Oct, Mastoiditis, unspecified laterality H70. 90 and Type 2 diabetes mellitus with complication E11.[address] [address] Sep, [address] [address] Sep, Dysuria R30.0 ; Cough R05 ; Benign prost atic hyperplasia with lower urinary tract symptoms, unspecified morphology N40.1 ; Hypokalemia E87.6 and Eustachian tube dysfunction, unspecified laterality H69.80 [place] [address] [address] Sep, Moderate mixed bipolar I disorder F31.[address] [address] Sep, Hypokalemia E87.[address] [address] Sep, [address] [place] [address] Sep, Upper respiratory tract infection, unspe cified type J06.9 [facility] [address] [address] Aug, [facility] [address] [address] Aug, Dysuria R30.0 [facility] [address] [address] Aug, [facility] [address] [address] Jul, [facility] [address] [address] Jul, [facility] [address] [address] Jul, [facility] [address] [address] Jul, [facility] [address] [address] Jun, [facility] [address] [address] Jun, [facility] [address] [address] Jun, [facility] [address] [address] May, [facility] [address] [address] May, Bipolar I disorder, most recent episode (or current) mixed, moderate 296.62 [facility] [address] [address] 16 May, 2015 [facility] [address] [address] May, Bipolar I disorder, most recent episode (or current) mixed, moderate 296.62 and Major depressive disorder, recurrent episode, severe, specified as with psychotic behavior 296.34 [facility] [address] [address] May, Bipolar I disorder, most recent episode (or current) mixed, moderate 296.62 [facility] [address] [address] May, [facility] [address] [address] Apr, [facility] [address] [address] Apr, [facility] [address] [address] Apr, Unspecified disorder of kidney and urete r 593.9 and Diabetes mellitus type [address], [address] [facility] [address] [address] Apr, [facility] [address] [address] Apr, [facility] [address] [address] Apr, [facility] [address] [address] Apr, [facility] [address] [address] Apr, Diabetes mellitus type II, uncontrolled 250.02 [facility] [address] [address] Apr, [facility] [address] [address] Mar, [facility] [address] [address] Mar, [facility] [address] [address] Mar, [facility] [address] [address] Mar, Major depressive disorder, recurrent epi sode, severe, specified as with psychotic behavior 296.34 and Bipolar I disorder, most recent episode (or current) mixed, moderate 296.62 [facility] [address] [address] Mar, Diabetes 250.00 ; Anuria 788.5 ; Nausea and vomiting 787.[address] [facility] [address] [address] Mar, Diabetes 250.00 [facility] [address] [address] Mar, [facility] [address] [place] [address] Mar, Diabetes 250.00 [facility] [address] [address] Mar, [facility] [address] [address] Mar, [facility] [address] [address] Mar, [address] [address] Mar, [facility] [address] [address] Mar, Bipolar I disorder, most recent episode (or current) mixed, moderate 296.62 and Major depressive disorder, recurrent episode, severe, specified as with psychotic behavior 296.34 [facility] [address] [place] [address] Mar, Magnesium deficiency 275.2 ; Hypokalemia 276.8 ; Nausea & vomiting 787.01 and Diabetes mellitus type [address], [address] [facility] [address] [address] Feb, [facility] [address] [place] [address] Feb, Bipolar I disorder, most recent episode (or current) mixed, moderate 296.[address] [address] Feb, Nausea and vomiting 787.01 ; Left elbow pain 719.42 ; Anuria 788.5 and Diabetes 250.[address] [address] Feb, [place] [address] Feb, Hypopotassemia 276.8 and Hypokalemia [address] [address] Feb, Hypopotassemia 276.8 and Hypokalemia [address] [address] Feb, Seborrheic keratoses 702.[address] [address] Feb, Hypopotassemia 276.8 and Low magnesium l evels 275.[address] [address] January, [address] [address] January, [address] [address] January, [address] [address] January, Scalp lesion 709.[address] [address] January, [address] [address] Dec, Tear of medial cartilage or meniscus of knee, current 836.0 and 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 [place] [address] 29 Dec, 2014 [facility] [address] [id number] [place] [address] 29 Dec, 2014 [facility] [address] [id number] [place] [address] 28 Dec, 2014 Squamous cell carcinoma, 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 42 [facility] [address] [id number] [place] [address] 14 Dec, 2014 [facility] [address] [id number] [place] [address] 13 Dec, 2014 [facility] [address] [id number] [place] [address] Nov, [facility] [address] [id number] [place] [address] Nov, [facility] [address] [place] [id number] [place] [address] Nov, [facility] [address] [id number] [place] [address] Nov, [facility] [address] [id number] [place] [address] Nov, [facility] [address] [id number] [place] [address] Nov, [facility] [address] [id number] [place] [address] Nov, [facility] [address] [id number] [place] [address] Nov, [facility] [address] [id number] [place] [address] Nov, [facility] [address] [id number] [place] [address] Nov, [facility] [address] [id number] [place] [address] Nov, [facility] [address] [id number] [place] [address] Nov, [facility] [address] [id number] [place] [address] Oct, [facility] [address] [id number] [place] [address] Oct, [facility] [address] [id number] [place] [address] Oct, [facility] [address] [id number] [place] [address] Oct, 2014 [facility] [address] [id number] [place] [address] Oct, [facility] [address] [id number] [place] [address] Oct, [facility] [address] [id number] [place] [address] Oct, [facility] [address] [id number] [place] [address] Oct, 2014 [facility] [address] [id number] [place] [address] Oct, [facility] [address] [id number] [place] [address] Sep, [facility] [address] [id number] [place] [address] Sep, [facility] [address] [id number] [place] [address] Sep, [facility] [address] [id number] [place] [address] Sep, [facility] [address] [id number] [place] [address] Sep, [facility] [address] [id number] [place] [address] Sep, [facility] [address] [id number] [place] [address] Sep, [facility] [address] [id number] [place] [address] Sep, [facility] [address] [id number] [place] [address] Sep, [facility] [address] [id number] [place] [address] Sep, [facility] [address] [id number] [place] [address] Sep, [facility] [address] [id number] [place] [address] 08 Sep, 2014 [facility] [address] [id number] [place] [address] Sep, [facility] [address] [id number] [place] [address] Sep, [facility] [address] [id number] [place] [address] Sep, [facility] [address] [id number] [place] [address] Sep, [facility] [address] [id number] [place] [address] Aug, [facility] [address] [id number] [place] [address] Aug, [facility] [address] [id number] [place] [address] Aug, [facility] [address] [id number] [place] [address] 31 Aug, 2014 [facility] [address] [id number] [place] [address] Aug, [facility] [address] [id number] [place] [address] 31 Aug, 2014 [facility] [address] [id number] [place] [address] 17 Aug, 2014 [facility] [address] [id number] [place] [address] Aug, [facility] [address] [facility] [id number] [place] [address] Aug, [facility] [address] [facility] [id number] [place] [address] Aug, [facility] [address] [id number] [place] [address] Aug, [facility] [address] [facility] [place] [id number] Aug, [facility] [address] [facility] [id number] [place] [address] Aug, [facility] [address] [id number] [place] [address] Aug, [facility] [address] [id number] [place] [address] Aug, [facility] [address] [id number] [place] [address] Aug, [facility] [address] [id number] [place] [address] Aug, [facility] [address] [id number] [place] [address] Aug, [facility] [address] [id number] [place] [address] Aug, [facility] [address] [id number] [place] [address] Aug, [facility] [address] [facility] [id number] [place] [address] Aug, [facility] [address] [id number] [place] [address] Aug, [facility] [address] [id number] [place] [address] Aug, [facility] [address] [id number] [place] [address] Aug, [facility] [address] [id number] [place] [address] Aug, [facility] [address] [id number] [place] [address] Aug, [facility] [address] [id number] [place] [address] Aug, [facility] [address] [id number] [place] [address] Aug, [facility] [address] [id number] [place] [address] Aug, [facility] [address] [id number] [place] [address] Aug, [facility] [address] [id number] [place] [address] Jul, [facility] [address] [id number] [place] [address] Jul, [facility] [address] [id number] [place] [address] Jul, [facility] [address] [id number] [place] [address] Jul, [facility] [address] [id number] [place] [address] Jul, [facility] [address] [id number] [place] [address] Jul, [facility] [address] [id number] [place] [address] Jul, [facility] [address] [id number] [place] [address] Jul, [facility] [address] [id number] [place] [address] Jul, [facility] [place] [facility] [address] [id number] [place] [address] Jul, [facility] [place] [facility] [address] [id number] [place] [address] Jun, [facility] [place] [facility] [address] [id number] [place] [address] Jun, [facility] [place] [facility] [address] [id number] [place] [address] Jun, [facility] [place] [facility] [address] [id number] [place] [address] 16 Jun, 2014 [facility] [place] [facility] [address] [id number] [place] [address] Jun, [facility] [place] [facility] [address] [id number] [place] [address] Jun, [facility] [place] [facility] [address] [id number] [place] [address] Jun, [facility] [place] [facility] [address] [id number] [place] [address] Jun, [facility] [place] [facility] [address] [id number] [place] [address] Jun, [facility] [place] [facility] [address] [id number] [place] [address] Jun, [facility] [place] [facility] [address] [id number] [place] [address] 29 Sep, 2013 [facility] [place] [facility] [address] [id number] [place] [address] 29 Sep, 2013 [facility] [place] [facility] [address] [id number] [place] [address] 26 Sep, 2013 [facility] [place] [facility] [address] [id number] [place] [address] 26 Sep, 2013 [facility] [place] [facility] [address] [id number] [place] [address] 17 Sep, 2013 [facility] [place] [facility] [address] [id number] [place] [address] 17 Sep, 2013 [facility] [place] [facility] [address] [id number] [place] [address] 15 Sep, 2013 [facility] [place] [facility] [address] [id number] [place] [address] 15 May, 2013 [facility] [place] [facility] [address] [id number] [facility] [place] [address] 15 May, 2013 [facility] [place] [facility] [address] [facility] [id number] [facility] [place] [address] 15 May, 2013 [facility] [place] [facility] [address] [facility] [id number] [facility] [place] [address] 10 May, 2013 [facility] [place] [facility] [address] [id number] [facility] [place] [address] 10 May, 2013 [facility] [place] [facility] [address] [facility] [id number] [facility] [place] [address] 09 May, 2013 [facility] [place] [facility] [address] [id number] [facility] [place] [address] May, 2013 [facility] [place] [facility] [address] [id number] [place] [address] May, 2013 [facility] [place] [facility] [address] [id number] [facility] [place] [address] May, 2013 [facility] [place] [facility] [address] [facility] [id number] [facility] [place] [address] Apr, [facility] [place] [facility] [address] [id number] [facility] [place] [address] Apr, [facility] [place] [facility] [address] [facility] [id number] [place] [address] Apr, [facility] [place] [facility] [address] [id number] [place] [address] Apr, 2013 [facility] [place] [facility] [address] [facility] [id number] [facility] [place] [address] Apr, 2013 [facility] [place] [facility] [address] [id number] [place] [address] Apr, [facility] [place] [facility] [address] [facility] [id number] [place] [address] Apr, 2013 [facility] [place] [facility] [address] [id number] [place] [address] Apr, 2013 [facility] [place] [facility] [address] [id number] [place] [address] Apr, [facility] [place] [facility] [address] [id number] [facility] [place] [address] Apr, [facility] [place] [facility] [address] [facility] [id number] [place] [address] Apr, [facility] [place] [facility] [address] [id number] [place] [address] Apr, [facility] [place] [facility] [address] [facility] [id number] [place] [address] Apr, [facility] [place] [facility] [address] [id number] [place] [address] Apr, [facility] [place] [facility] [address] [id number] [place] [address] Apr, [facility] [place] [facility] [address] [id number] [place] [address] Mar, [facility] [place] [facility] [address] [id number] [place] [address] Mar, [facility] [place] [facility] [address] [id number] [place] [address] Mar, [facility] [place] [facility] [address] [id number] [place] [address] Mar, [facility] [place] [facility] [address] [id number] [place] [address] Mar, [facility] [place] [facility] [address] [id number] [place] [address] Mar, [facility] [place] [facility] [address] [facility] [id number] [place] [address] Mar, [facility] [place] [facility] [address] [id number] [place] [address] Mar, [facility] [place] [facility] [address] [id number] [place] [address] Mar, [facility] [place] [facility] [address] [id number] [place] [address] Mar, [facility] [place] [facility] [address] [id number] [place] [address] Mar, 2013 [facility] [place] [facility] [address] [facility] [id number] [place] [address] Mar, 2013 [facility] [place] [facility] [address] [facility] [id number] [place] [address] Mar, 2013 [facility] [place] [facility] [address] [id number] [place] [address] Mar, 2013 [facility] [place] [facility] [address] [facility] [id number] [place] [address] Mar, 2013 [facility] [place] [facility] [address] [id number] [place] [address] Mar, 2013 [facility] [place] [facility] [address] [id number] [place] [address] Mar, 2013 [facility] [place] [facility] [address] [id number] [place] [address] Mar, 2013 [facility] [place] [facility] [address] [id number] [place] [address] Feb, [facility] [place] [facility] [address] [id number] [place] [address] Feb, [facility] [place] [facility] [address] [id number] [place] [address] Feb, [facility] [place] [facility] [address] [id number] [place] [address] Feb, [facility] [place] [facility] [address] [id number] [place] [address] Feb, [facility] [place] [facility] [address] [facility] [id number] [place] [address] Feb, [facility] [place] [facility] [address] [id number] [place] [address] Feb, [facility] [place] [facility] [address] [id number] [place] [address] Feb, [facility] [place] [facility] [address] [id number] [place] [address] Feb, [facility] [place] [facility] [address] [facility] [id number] [place] [address] Feb, [facility] [place] [facility] [address] [facility] [id number] [facility] [place] [address] Feb, [facility] [place] [facility] [address] [id number] [place] [address] Feb, [facility] [place] [facility] [address] [id number] [place] [address] Feb, [facility] [place] [facility] [address] [facility] [id number] [facility] [place] [address] Feb, [facility] [place] [facility] [address] [id number] [place] [address] January, [facility] [place] [facility] [address] [id number] [place] [address] January, [facility] [place] [facility] [address] [id number] [facility] [place] [address] January, [facility] [place] [facility] [address] [facility] [id number] [place] [address] January, [facility] [place] [facility] [address] [id number] [place] [address] January, [facility] [place] [facility] [address] [id number] [place] [address] January, [facility] [place] [facility] [address] [id number] [place] [address] January, [facility] [place] [facility] [address] [facility] [id number] [place] [address] January, [facility] [place] [facility] [address] [id number] [place] [address] January, [facility] [place] [facility] [address] [id number] [place] [address] January, [facility] [place] [facility] [address] [id number] [place] [address] January, [facility] [place] [facility] [address] [id number] [place] [address] January, [facility] [place] [facility] [address] [id number] [place] [address] January, [facility] [place] [facility] [address] [id number] [place] [address] January, [facility] [place] [facility] [address] [id number] [place] [address] Dec, [facility] [place] [facility] [address] [facility] [id number] [place] [address] Dec, [facility] [place] [facility] [address] [id number] [place] [address] Dec, [facility] [place] [facility] [address] [id number] [place] [address] Dec, [facility] [place] [facility] [address] [id number] [place] [address] Dec, [facility] [place] [facility] [address] [id number] [place] [address] Dec, [facility] [place] [facility] [address] [id number] [place] [address] Dec, [facility] [place] [facility] [address] [id number] [place] [address] Dec, [facility] [place] [facility] [address] [id number] [place] [address] Dec, [facility] [place] [facility] [address] [id number] [place] [address] Dec, [facility] [place] [facility] [address] [id number] [place] [address] Nov, [facility] [place] [facility] [address] [id number] [place] [address] Nov, [facility] [place] [facility] [address] [id number] [place] [address] Nov, [facility] [place] [facility] [address] [id number] [place] [address] Nov, [facility] [place] [facility] [address] [facility] [id number] [place] [address] 08 Nov, 2013 [facility] [place] [facility] [address] [id number] [place] [address] Nov, [facility] [place] [facility] [address] [id number] [place] [address] Nov, [facility] [place] [facility] [address] [id number] [place] [address] Nov, [facility] [place] [facility] [address] [id number] [place] [address] Nov, [facility] [place] [facility] [address] [id number] [place] [address] Nov, [facility] [place] [facility] [address] [id number] [place] [address] Oct, [facility] [place] [facility] [address] [id number] [place] [address] Oct, [facility] [place] [facility] [address] [id number] [place] [address] Oct, [facility] [place] [facility] [address] [id number] [place] [address] Oct, [facility] [place] [facility] [address] [id number] [place] [address] Oct, [facility] [place] [facility] [address] [id number] [place] [address] Oct, [facility] [place] [facility] [address] [id number] [place] [address] 14 Oct, 2013 [facility] [place] [facility] [address] [id number] [place] [address] Oct, [facility] [place] [facility] [address] [id number] [place] [address] 05 Oct, 2013 [facility] [place] [facility] [address] [id number] [place] [address] 05 Oct, 2013 [facility] [place] [facility] [address] [id number] [place] [address] 04 Oct, 2013 [facility] [place] [facility] [address] [id number] [place] [address] Oct, [facility] [place] [facility] [address] [id number] [place] [address] Oct, [facility] [place] [facility] [address] [id number] [place] [address] Oct, [facility] [place] [facility] [address] [id number] [place] [address] Sep, [facility] [place] [facility] [address] [id number] [place] [address] Sep, [facility] [place] [facility] [address] [id number] [place] [address] 15 Sep, 2013 [facility] [place] [facility] [address] [id number] [place] [address] 15 Sep, 2013 [facility] [place] [facility] [address] [id number] [place] [address] 14 Sep, 2013 [facility] [place] [facility] [address] [id number] [place] [address] Sep, [facility] [place] [facility] [address] [id number] [place] [address] Sep, [facility] [place] [facility] [address] [id number] [place] [address] 14 Sep, 2013 [facility] [place] [facility] [address] [id number] [place] [address] 08 Sep, 2013 [facility] [place] [facility] [address] [id number] [place] [address] 08 Sep, 2013 [facility] [place] [facility] [address] [id number] [place] [address] Aug, [facility] [place] [facility] [address] [id number] [place] [address] Aug, [facility] [place] [facility] [address] [id number] [place] [address] Jul, [facility] [place] [facility] [address] [id number] [place] [address] Jul, [facility] [place] [facility] [address] [id number] [place] [address] Jul, [facility] [place] [facility] [address] [id number] [place] [address] Jul, [facility] [place] [facility] [address] [id number] [place] [address] Jul, [facility] [place] [facility] [address] [id number] [place] [address] Jul, [facility] [place] [facility] [address] [id number] [place] [address] Jul, [facility] [place] [facility] [address] [id number] [place] [address] Jul, [facility] [place] [facility] [address] [id number] [place] [address] Jul, [facility] [place] [facility] [address] [id number] [place] [address] Jul, [facility] [place] [facility] [address] [id number] [place] [address] Jul, [facility] [place] [facility] [address] [id number] [place] [address] Jul, [facility] [place] [facility] [address] [id number] [place] [address] Jul, [facility] [place] [facility] [address] [id number] [place] [address] Jul, [facility] [place] [facility] [address] [id number] [place] [address] Jul, [facility] [place] [facility] [address] [id number] [place] [address] Jul, [facility] [place] [facility] [address] [id number] [place] [address] Jul, [facility] [place] [facility] [address] [id number] [place] [address] Jul, 2012 [facility] [place] [facility] [address] [id number] [place] [address] Jul, 2012 [facility] [place] [facility] [address] [id number] [place] [address] Jun, 2012 [facility] [place] [facility] [address] [id number] [place] [address] Jun, 2012 [facility] [place] [facility] [address] [id number] [place] [address] Jun, 2012 [facility] [place] [facility] [address] [id number] [place] [address] Jun, 2012 [facility] [place] [facility] [address] [id number] [place] [address] Jun, 2012 [facility] [place] [facility] [address] [id number] [place] [address] Jun, 2012 [facility] [place] [facility] [address] [id number] [place] [address] Jun, 2012 [facility] [place] [facility] [address] [id number] [place] [address] Jun, [facility] [place] [facility] [address] [id number] [place] [address] Jun, [facility] [place] [facility] [address] [id number] [place] [address] Jun, [facility] [place] [facility] [address] [id number] [place] [address] Jun, 2012 [facility] [place] [facility] [address] [id number] [place] [address] 26 May, 2012 [facility] [place] [facility] [address] [id number] [place] [address] 25 Sep, 2012 [facility] [place] [facility] [address] [id number] [place] [address] 19 Sep, 2012 [facility] [place] [facility] [address] [id number] [place] [address] 17 Sep, 2012 [facility] [place] [facility] [address] [id number] [facility] [place] [address] 11 May, 2012 [facility] [place] [facility] [address] [id number] [facility] [place] [address] May, 2012 [facility] [place] [facility] [address] [facility] [id number] [facility] [place] [address] May, [facility] [place] [facility] [address] [id number] [place] [address] May, [facility] [place] [facility] [address] [facility] [id number] [facility] [place] [address] Apr, [facility] [place] [facility] [address] [facility] [id number] [facility] [place] [address] Apr, [facility] [place] [facility] [address] [id number] [place] [address] Apr, [facility] [place] [facility] [address] [id number] [place] [address] Apr, [facility] [place] [facility] [address] [id number] [place] [address] Apr, [facility] [place] [facility] [address] [id number] [place] [address] Mar, [facility] [place] [facility] [address] [id number] [place] [address] Mar, [facility] [place] [facility] [address] [id number] [place] [address] Mar, [facility] [place] [facility] [address] [id number] [place] [address] Mar, [facility] [place] [facility] [address] [facility] [id number] [place] [address] Mar, [facility] [place] [facility] [address] [id number] [place] [address] Mar, [facility] [place] [facility] [address] [id number] [place] [address] Mar, [facility] [place] [facility] [address] [id number] [place] [address] Mar[facility] [address] [id number] [place] [address] Feb, [facility] [address] [id number] [place] [address] Feb, [facility] [place] [facility] [address] [id number] [place] [address] January, [facility] [address] [id number] [place] [address] January, [facility] [place] [facility] [address] [id number] [place] [address] Dec, [facility] [address] [id number] [place] [address] Dec, [facility] [place] [facility] [address] [id number] [place] [address] Nov, [facility] [address] [id number] [place] [address] Nov, [facility] [place] [facility] [address] [id number] [place] [address] Nov, [facility] [place] [facility] [address] [id number] [place] [address] Nov, [facility] [place] [facility] [address] [id number] [place] [address] Oct, [facility] [place] [facility] [address] [id number] [place] [address] Oct, [facility] [place] [facility] [address] [id number] [place] [address] Oct, [facility] [place] [facility] [address] [id number] [place] [address] Oct, [facility] [place] [facility] [address] [id number] [place] [address] 16 Oct, 2012 [facility] [place] [facility] [address] [id number] [place] [address] 14 Oct, 2012 [facility] [place] [facility] [address] [id number] [place] [address] 08 Oct, 2012 [facility] [place] [facility] [address] [id number] [place] [address] 07 Oct, 2012 [facility] [place] [facility] [address] [id number] [place] [address] Oct, [facility] [place] [facility] [address] [id number] [place] [address] Sep, [facility] [place] [facility] [address] [id number] [place] [address] Sep, [facility] [place] [facility] [address] [id number] [place] [address] Sep, [facility] [place] [facility] [address] [id number] [place] [address] Sep, [facility] [place] [facility] [address] [id number] [place] [address] Sep, [facility] [place] [facility] [address] [id number] [place] [address] Sep, [facility] [place] [facility] [address] [id number] [place] [address] Sep, [facility] [place] [facility] [address] [id number] [place] [address] Sep, [facility] [place] [facility] [address] [id number] [place] [address] Aug, [facility] [place] [facility] [address] [id number] [place] [address] Aug, [facility] [place] [facility] [address] [id number] [place] [address] Aug, [facility] [place] [facility] [address] [id number] [place] [address] Aug, [facility] [place] [facility] [address] [id number] [place] [address] Aug, [facility] [place] [facility] [address] [id number] [place] [address] Aug, [facility] [place] [facility] [address] [id number] [place] [address] Aug, [facility] [place] [facility] [address] [id number] [place] [address] Aug, [facility] [place] [facility] [address] [id number] [place] [address] Jul, [facility] [place] [facility] [address] [id number] [place] [address] Jul, [facility] [address] [id number] [place] [address] Jul, [facility] [address] [id number] [place] [address] Jul, [facility] [address] [id number] [place] [address] Jul, [facility] [id number] [place] [address] Jul, [facility] [address] [id number] [place] [address] Jun, [facility] [address] [id number] [place] [address] Jun, [facility] [address] [id number] [place] [address] Jun, [facility] [address] [id number] [place] [address] Jun, [facility] [address] [id number] [place] [address] Jun, [facility] [address] [id number] [place] [address] Jun, [facility] [address] [id number] [place] [address] Jun, [facility] [address] [id number] [place] [address] Jun, [facility] [address] [id number] [place] [address] Jun, [facility] [address] [facility] [id number] [address] 26 May, 2012 [facility] [address] [id number] [place] [address] 24 May, 2012 [facility] [address] [id number] [place] [address] May, [facility] [address] [id number] [place] [address] Apr, [facility] [address] [id number] [place] [address] Apr, [facility] [address] [id number] [place] [address] Apr, [facility] [address] [id number] [place] [address] Apr, [facility] [address] [id number] [place] [address] Apr, [facility] [address] [id number] [place] [address] Apr, [facility] [address] [id number] [place] [address] Mar, [facility] [address] [id number] [place] [address] Mar, [facility] [address] [id number] [place] [address] Mar, [facility] [address] [id number] [place] [address] Mar, [facility] [address] [id number] [place] [address] Feb, [facility] [address] [id number] [place] [address] Feb, [facility] [address] [id number] [place] [address] Feb, [facility] [address] [id number] [place] [address] Feb, [facility] [address] [id number] [place] [address] Feb, [facility] [address] [id number] [place] [address] January, [facility] [address] [id number] [place] [address] January, [facility] [address] [id number] [place] [address] January, [facility] [address] [id number] [place] [address] January, [facility] [address] [id number] [place] [address] January, [facility] [address] [id number] [place] [address] January, [facility] [address] [id number] [place] [address] Dec, [facility] [address] [id number] [place] [address] Dec, [facility] [address] [id number] [place] [address] Dec, [facility] [address] [id number] [place] [address] Dec, [facility] [address] [id number] [place] [address] Dec, [facility] [address] [id number] [place] [address] Nov, [facility] [address] [id number] [place] [address] 14 Nov, 2011 [facility] [address] [id number] [place] [address] Nov, [facility] [address] [id number] [place] [address] Nov, [facility] [address] [id number] [place] [address] 29 Oct, 2011 [facility] [address] [id number] [place] [address] Oct, [facility] [address] [id number] [place] [address] Oct, [facility] [address] [id number] [place] [address] Oct, [facility] [address] [id number] [place] [address] 08 Oct, 2011 [facility] [address] [id number] [place] [address] Sep, [facility] [address] [id number] [place] [address] Sep, [facility] [id number] [place] [address] Sep, [facility] [address] [id number] [place] [address] Sep, [facility] [id number] [place] [address] Sep, [facility] [address] [id number] [place] [address] Sep, [facility] [id number] [place] [address] Aug, [facility] [address] [id number] [place] [address] Aug, [facility] [address] [id number] [place] [address] Aug, [facility] [address] [id number] [place] [address] Jul, [facility] [address] [id number] [place] [address] Jul, [facility] [address] [id number] [place] [address] 10 Jul, 2011 [facility] [address] [id number] [place] [address] Jul, [facility] [address] [id number] [place] [address] Jun, [facility] [address] [id number] [place] [address] Jun, [facility] [address] [id number] [place] [address] Jun, [facility] [address] [id number] [place] [address] Jun, [facility] [address] [id number] [place] [address] Jun, [facility] [address] [id number] [place] [address] Jun, [facility] [address] [id number] [place] [address] Mar, [facility] [address] [id number] [place] [address] Dec, [facility] [address] [id number] [place] [address] Dec, [facility] [address] [id number] [place] [address] Nov, [facility] [address] [id number] [place] [address] 16 Nov, 2010 [facility] [address] [id number] [place] [address] Sep, [facility] [address] [id number] [place] [address] Aug, [facility] [address] [id number] [place] [address] Aug, [facility] [address] [id number] [place] [address] Aug, [facility] [address] [id number] [place] [address] 29 Aug, 2010 [facility] [address] [id number] [place] [address] 27 Aug, 2010 [facility] [address] [id number] [place] [address] 14 Aug, 2010 [facility] [address] [id number] [place] [address] 08 Aug, 2010 [facility] [address] [id number] [place] [address] 08 Aug, 2010 [facility] [address] [id number] [place] [address] 07 Aug, 2010 [facility] [address] [id number] [place] [address] 06 Aug, 2010 [facility] [address] [id number] [place] [address] Aug, [facility] [address] [id number] [place] [address] Aug, [facility] [address] [id number] [place] [address] Jul, [facility] [address] [id number] [place] [address] Jul, [facility] [address] [id number] [place] [address] 30 Jul, 2010 [facility] [address] [id number] [place] [address] 17 Jul, 2010 [facility] [address] [id number] [place] [address] Jul, [facility] [id number] [place] [address] Jul, [facility] [address] [id number] [place] [address] 24 Jun, 2010 [facility] [address] [id number] [place] [address] 19 Jun, 2010 [facility] [address] [facility] [id number] [place] [address] 19 Jun, 2010 [facility] [address] [id number] [place] [address] 13 Jun, 2010 [facility] [address] [id number] [place] [address] 16 Apr, 2010 [facility] [address] [id number] [place] [address] Mar, [facility] [address] [facility] [id number] [place] [address] Feb, [facility] [address] [id number] [place] [address] January, [facility] [address] [id number] [place] [address] 15 Dec, 2009 [facility] [address] [id number] [place] [address] Nov, [facility] [address] [id number] [place] [address] Aug, [facility] [address] [id number] [place] [address] Aug, [facility] [address] [id number] [place] [address] Aug, [facility] [address] [id number] [place] [address] Jul, [facility] [address] [id number] [place] [address] Jul, [facility] [address] [id number] [place] [address] Jul, [facility] [address] [id number] [place] [address] 30 Jun, 2009 [facility] [address] [id number] [place] [address] 29 Jun, 2009 [facility] [id number] [place] [address] Jun, [facility] [id number] [place] [address] Jun, [facility] [id number] [place] [address] Jun, [facility] [address] [address] Jun, [facility] [address] [address] Apr, [facility] [address] [address] Apr, [facility] [address] [address] Feb, [facility] [address] [address] January, [facility] [address] [address] Dec, IMMUNIZATIONS No Known Immunizations SOCIAL HISTORY [...] Medical History skin cancer-basal cell R buddhist (removed ) Medical History Arthritis Medical History [...] History inability to urinate 09/16/15 Hospitalization History [facility] inpatient mental health ea rly 1999's Hospitalization History hyperkalemia 10/2017 Hospitalization History fluid in lung
--- OUTSIDE RECORDS SUMMARY | 2020-03-01 16:43 | XMS REPORT ---
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 Name Role Phone NOEMI WASHBURN Unavailable PROBLEMS Type Condition ICD9-CM Code CRT82-LU Code Onset Dates Condition S tatus SNOMED Code Problem DM neuro manif type II E11.49 Active 75056904 Problem Chronic pain G89.29 Active 0327951 1 Problem Diabetes E11.9 Active 73022882 Problem Reactive airway disease J45.909 Active 111286596439 Problem Leukocytosis D72.829 Active 2496972 06 Problem Insomnia, unspecified type G47.00 Act sharon 690888698 Problem Bipolar I disorder, most recent episode (or curr ent) mixed, moderate F31.62 Active 85261166 Problem Primary osteoarthritis of right knee M17.11 Active 356533336627574 Problem Cough R05 Active 88518182 Problem Pure hypercholesterolemia E78.00 Acti ve 043069810 Problem Dysuria R30.0 Active 02522102 Problem Benign prostatic hyperplasia with lower urinary tract symptoms, unspecified morphology N40.1 Active 89482 6007 Problem Eustachian tube dysfunction, unspecified laterality H69.80 Active 27992895 Problem Polyneuropathy associated with underlying disease G63 Active 685164661 Problem Diabetic polyneuropathy associated with type 2 d iabetes mellitus E11.42 Active 90493774 Problem Anemia of chronic illness D63.8 Acti ve 340161944 Problem Chronic lymphocytic leukemia C91.10 A ctive 36418185 Problem Bilateral primary osteoarthritis of knee M17.0 Active 178280301 Problem 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 Active 018258925 Problem Eye exam abnormal R93.8 Active 16 2626311 Problem Retinal edema H35.81 Active 189498 6 Problem Lymphocytosis D72.820 Active 417622 09 Problem Bipolar disorder, in partial remission, most rec ent episode depressed F31.75 Active 70074823 Problem Hypokalemia E87.6 Active 81481532 Problem Falling R29.6 Active 592798341 Problem Pressure ulcer of other site, stage 3 L89.893 Active 811492410 Problem Other iron deficiency anemia D50.8 A ctive 48188065 Problem Mild cognitive impairment G31.84 Acti ve 072270487 Problem Skin cancer C44.90 Active 42458983 7 Problem intermediate (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 Z79.4 Active 053169311 Problem Morbid obesity E66.01 Active 98010 6002 Problem Mood disorder F39 Active 703578 05 Problem Anxiety F41.9 Active 50070308 Problem Essential hypertension I10 Active 77891212 Problem Bipolar disorder F31.9 Active 137 94340 Problem Chronic diastolic (congestive) heart failure I50.3 2 Active 638048117 Problem Psychophysiological insomnia F51.04 A ctive 532022647 Problem Type 2 diabetes mellitus with diabetic neuropathy, uns pecified E11.40 Active 82379231 ALLERGIES No Information ENCOUNTERS Encounter Location Date Diagnosis [place] [address] [address] Dec, [place] [address] [address] Dec, [place] [address] [address] Nov, [place] [address] [address] Nov, [place] [address] [address] Nov, Syncope, unspecified syncope type R55 [place] [address] [address] Nov, Mood disorder F39 [place] [address] [address] Oct, Chronic pain G89.29 [place] [address] [address] Oct, [place] [address] [address] Oct, Mood disorder F39 [facility] [place] [address] [id number] [place] [address] Oct, [facility] [place] [address] [id number] [place] [address] Oct, Bipolar disorder, in partial remission, most recent episode depressed F31.75 and Mild cognitive impairment G31.84 [facility] [place] [address] [place] [id number] [place] [address] 04 Oct, 2019 Mood disorder F39 [facility] [place] [address] [id number] [place] [address] Sep, [facility] [place] [address] [place] [address] [id number] [place] [address] Sep, Mood disorder F39 [facility] [place] [address] [place] [address] [id number] [place] [address] Sep, Bipolar disorder, in partial remission, most recent episode depressed F31.75 and Mild cognitive impairment G31.84 [facility] [place] [address] [id number] [place] [address] Sep, Mood disorder F39 [facility] [place] [address] [place] [id number] [place] [address] Sep, [facility] [place] [address] [id number] [place] [address] Sep, Mood disorder F39 [facility] [place] [address] [id number] [place] [address] Sep, [facility] [place] [address] [id number] [place] [address] Aug, Mood disorder F39 [facility] [place] [address] [place] [id number] [place] [address] Aug, [facility] [place] [address] [id number] [place] [address] Aug, [facility] [place] [address] [id number] [place] [address] Aug, [facility] [place] [address] [place] [id number] [place] [address] Aug, [facility] [place] [address] [place] [id number] [place] [address] Aug, [facility] [place] [address] [place] [id number] [place] [address] Aug, [facility] [place] [address] [address] Aug, [facility] [place] [address] [address] Aug, Essential hypertension I10 [facility] [place] [address] [address] Aug, Bipolar disorder, in partial remission, most recent episode depressed F31.75 and Mild cognitive impairment G31.84 [facility] [place] [address] [address] Aug, Mood disorder F39 [facility] [place] [address] [address] Aug, [facility] [place] [address] [address] Aug, Bipolar disorder, in partial remission, most recent episode depressed F31.75 and Mild cognitive impairment G31.84 [facility] [place] [address] [address] Jul, Bipolar disorder, in partial remission, most recent episode depressed F31.75 and Mild cognitive impairment G31.84 [facility] [place] [address] [place] [id number] [place] [address] Jul, Psychophysiological insomnia F51.04 [facility] [place] [address] [place] [id number] [place] [address] Jul, [facility] [place] [address] [address] Jul, [facility] [place] [address] [address] Jul, [facility] [place] [address] [place] [id number] [place] [address] Jul, [facility] [place] [address] [address] Jul, [facility] [place] [address] [address] Jul, [place] [address] [address] Jul, Bipolar disorder, in partial remission, most recent episode depressed F31.75 and Mild cognitive impairment G31.84 [place] [address] [address] Jul, Chronic pain G89.29 ; Diabetes E11.9 ; E ssential hypertension I10 ; Ill feeling R68.89 ; Local infection of the skin and subcutaneous tissue, unspecified L08.9 and Other injury of unspecified body region, initial encounter T14.8XXA [place] [address] [place] [id number] [place] [address] Jun, Bipolar disorder, in partial remission, most recent episode depressed F31.75 and Mild cognitive impairment G31.84 [place] [address] [address] Jun, [place] [address] [address] Jun, Bipolar disorder, in partial remission, most recent episode depressed F31.75 and Mild cognitive impairment G31.84 [place] [address] [place] [id number] [place] [address] Jun, Psychophysiological insomnia F51.04 [place] [address] [address] Jun, Psychophysiological insomnia F51.04 ; Ch ronic pain G89.29 ; Bipolar I disorder, most recent episode (or current) mixed, moderate F31.62 ; 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 ; Polyneuropathy associated with underlying disease G63 ; Type 2 diabetes mellitus with diabetic neuropathy, unspecified E11.40 ; intermediate (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 Z79.4 and Hyperglycemia R73.[address] [address] Jun, Bipolar disorder, in partial remission, most recent episode depressed F31.75 and Mild cognitive impairment G31.[address] [address] Jun, [address] [address] Jun, Bipolar disorder F31.[address] [address] May, Bipolar disorder, in partial remission, most recent episode depressed F31.75 and Mild cognitive impairment G31.[address] [address] May, [address] [address] Apr, Chronic pain G89.29 and Bipolar disorder F31.[address] [address] Mar, Bipolar disorder F31.9 and Chronic pain G89.[address] [address] Feb, Bipolar disorder F31.[address] [address] Feb, Cellulitis of right upper extremity L03. 113 and Skin abrasion T14.8XXA [address] [address] Feb, Bipolar disorder, in partial remission, most recent episode depressed F31.75 and Mild cognitive impairment G31.[address] [address] Feb, Chronic pain G89.[id number] [place] [address] Feb, Bipolar disorder, in partial remission, most recent episode depressed F31.75 and Mild cognitive impairment G31.84 [facility] [place] [address] [address] January, Bipolar disorder, in partial remission, most recent episode depressed F31.75 and Mild cognitive impairment G31.84 [facility] [place] [address] [address] January, Chronic pain G89.29 and Bipolar disorder F31.9 [facility] [place] [address] [address] January, Bipolar disorder, in partial remission, most recent episode depressed F31.75 and Mild cognitive impairment G31.84 [place] [address] [address] Dec, [place] [address] [address] Dec, Chronic pain G89.29 and Bipolar disorder F31.9 [facility] [place] [address] [address] Dec, Edema of both lower extremities R60.0 [facility] [place] [address] [address] Dec, Bipolar disorder F31.9 [facility] [place] [address] [address] Dec, Bipolar disorder, in partial remission, most recent episode depressed F31.75 and Mild cognitive impairment G31.84 [facility] [place] [address] [place] [id number] [place] [address] Nov, [facility] [place] [address] [address] Nov, Chronic pain G89.29 [facility] [place] [address] [address] Nov, Bipolar disorder, in partial remission, most recent episode depressed F31.75 and Mild cognitive impairment G31.84 [place] [address] [address] Nov, Bipolar disorder F31.9 [place] [address] [address] 04 Nov, 2018 Encounter for Medicare annual [...] unspecified morphology N40.1 and Essential hypertension I10 [place] [address] [address] Oct, Chronic pain G89.29 [place] [address] [address] 18 Oct, 2018 Diabetes E11.9 [place] [address] [address] 11 Oct, 2018 Bipolar I disorder, most recent episode (or current) mixed, moderate F31.62 and Mild cognitive impairment G31.84 [place] [address] [address] Oct, Bipolar I disorder, most recent episode (or current) mixed, moderate F31.62 and Mild cognitive impairment G31.84 [place] [address] [address] Sep, Bipolar I disorder, most recent episode (or current) mixed, moderate F31.62 and Mild cognitive impairment G31.84 [place] [address] [address] Sep, [place] [address] [address] Sep, Diabetes E11.9 ; Hypoxia R09.02 ; Hyperg lycemia R73.9 ; Therapeutic drug monitoring Z51.81 ; BMI 50.0-59.9, adult Z68.43 and Skin cancer C44.90 [place] [address] [address] Sep, Chronic pain G89.29 [place] [address] [place] [address] Sep, Bipolar I disorder, most recent episode (or current) mixed, moderate F31.62 [place] [address] [address] Sep, [place] [address] [address] Sep, [place] [address] [address] Aug, Chronic pain G89.29 [place] [address] [address] Aug, Bipolar I disorder, most recent episode (or current) mixed, moderate F31.62 [place] [address] [address] Aug, Bipolar I disorder, most recent episode (or current) mixed, moderate F31.62 and Mild cognitive impairment G31.84 [place] [address] [address] Jul, [place] [address] [address] Jul, Chronic pain G89.29 [place] [address] [address] Jul, Bipolar I disorder, most recent episode (or current) mixed, moderate F31.62 and Mild cognitive impairment G31.84 [place] [address] [address] Jul, Bipolar I disorder, most recent episode (or current) mixed, moderate F31.62 and MCI (mild cognitive impairment) G31.84 [facility] [place] [address] [place] [id number] [place] [address] Jul, [facility] [place] [address] [place] [id number] [place] [address] Jul, [facility] [place] [address] [place] [id number] [place] [address] Jul, Bipolar I disorder, most recent episode (or current) mixed, moderate F31.62 [place] [address] [place] [id number] [place] [address] Jul, Chronic pain G89.29 [place] [address] [address] Jun, Bipolar I disorder, most recent episode (or current) mixed, moderate F31.62 [place] [address] [place] [address] [place] [address] Jun, Pre-procedure lab exam Z01.812 [place] [address] [place] [id number] [place] [address] Jun, [place] [address] [place] [id number] [id number] Jun, [place] [address] [address] Jun, [address] [address] Jun, Forgetfulness R68.89 ; Pre-syncope R55 ; Localized edema R60.0 ; Other iron deficiency anemia D50.8 and BMI 50.0-59.9, adult Z68.43 [place] [address] [address] Jun, Chronic pain G89.29 [facility] [place] [address] [place] [id number] [place] [address] Jun, Chronic pain G89.29 [place] [address] [address] Jun, Bipolar I disorder, most recent episode (or current) mixed, moderate F31.62 [place] [address] [address] May, Chronic pain G89.29 [place] [address] [address] Apr, [place] [address] [address] Apr, Chronic pain G89.29 [place] [address] [address] Apr, Primary osteoarthritis of right knee M17 .11 [place] [address] [address] Mar, [place] [address] [address] Mar, BMI 50.0-59.9, adult Z68.43 and Bipolar disorder, in partial remission, most recent episode depressed F31.75 [place] [address] [address] Mar, Diabetes E11.9 ; Pure hypercholesterolem ia E78.00 ; Essential hypertension I10 ; Nausea with vomiting, unspecified R11.2 and Headache, unspecified headache type R51 [place] [address] [address] Mar, Bipolar I disorder, most recent episode (or current) mixed, moderate F31.62 [place] [address] [address] Mar, Bipolar I disorder, most recent episode (or current) mixed, moderate F31.62 [place] [address] [address] Mar, Chronic pain G89.29 [place] [address] [address] Mar, Bipolar I disorder, most recent episode (or current) mixed, moderate F31.62 [place] [address] [address] Feb, Bipolar I disorder, most recent episode (or current) mixed, moderate F31.62 [place] [address] [address] Feb, Chronic pain G89.29 [place] [address] [address] Feb, Decubitus ulcer of right foot, stage 3 L 89.893 and BMI 50.0-59.9, adult Z68.43 [place] [address] [address] Feb, Bipolar I disorder, most recent episode (or current) mixed, moderate F31.62 [place] [address] [address] Feb, [place] [address] [address] January, [place] [address] [address] January, Chronic pain G89.29 [place] [address] [address] January, Bipolar I disorder, most recent episode (or current) mixed, moderate F31.62 [place] [address] [address] January, Bipolar I disorder, most recent episode (or current) mixed, moderate F31.62 [place] [address] [address] Dec, Bipolar I disorder, most recent episode (or current) mixed, moderate F31.62 and BMI 50.0-59.9, adult Z68.43 [place] [address] [address] Dec, Bipolar I disorder, most recent episode (or current) mixed, moderate F31.62 [facility] [place] [address] [address] Dec, Chronic pain G89.29 [facility] [place] [address] [address] Dec, DM neuro manif type II E11.49 ; Right fl ank pain R10.9 ; intermediate 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 Z79.891 ; Encounter for medication monitoring Z51.81 and BMI 50.0-59.9, adult Z68.43 [place] [address] [address] Dec, Bipolar I disorder, most recent episode (or current) mixed, moderate F31.62 [place] [address] [address] Nov, Bipolar I disorder, most recent episode (or current) mixed, moderate F31.62 [place] [address] [address] Nov, Chronic pain G89.29 [place] [address] [address] Nov, Bipolar I disorder, most recent episode (or current) mixed, moderate F31.62 [place] [address] [address] Nov, Hypokalemia E87.6 [place] [address] [address] Nov, Bipolar I disorder, most recent episode (or current) mixed, moderate F31.62 [place] [address] [address] Oct, Chronic pain G89.29 [facility] [place] [address] [address] Oct, BMI 50.0-59.9, adult Z68.43 and Bipolar I disorder, most recent episode (or current) mixed, moderate F31.62 [facility] [place] [address] [address] Oct, Bipolar I disorder, most recent episode (or current) mixed, moderate F31.62 [facility] [place] [address] [address] Oct, [facility] [place] [address] [address] Oct, Hypokalemia E87.6 [place] [address] [address] Oct, DM neuro manif type II E11.49 [place] [address] [address] Oct, Bipolar I disorder, most recent episode (or current) mixed, moderate F31.62 [place] [address] [address] Oct, Bipolar I disorder, most recent episode (or current) mixed, moderate F31.62 [place] [address] [address] Oct, Hyperkalemia E87.5 ; Falling R29.6 ; BMI 50.0-59.9, adult Z68.43 and Acute left ankle pain M25.572 [place] [address] [address] Oct, DM neuro manif type II E11.49 [place] [address] [address] Oct, [place] [address] [address] Sep, Chronic pain G89.29 [place] [address] [address] Sep, [place] [address] [address] Sep, Bilateral primary osteoarthritis of knee M17.0 [place] [address] [address] 18 Sep, 2017 Generalized edema R60.1 [place] [address] [address] 16 Sep, 2017 Bipolar I disorder, most recent episode (or current) mixed, moderate F31.62 [place] [address] [address] 15 Sep, 2017 Hypoxia R09.02 ; Other hypervolemia E87. 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 ; Anemia of chronic illness D63.8 and BMI 50.0-59.9, adult Z68.43 [place] [address] [address] Sep, [place] [address] [address] Sep, Bipolar I disorder, most recent episode (or current) mixed, moderate F31.62 [place] [address] [address] 28 Aug, 2017 Chronic pain G89.29 [place] [address] [address] 27 Aug, 2017 Generalized edema R60.1 [place] [address] [address] 18 Aug, 2017 [place] [address] [address] 18 Aug, 2017 [place] [address] [address] 14 Aug, 2017 Bipolar I disorder, most recent episode (or current) mixed, moderate F31.62 [place] [address] [address] 07 Aug, 2017 Bipolar I disorder, most recent episode (or current) mixed, moderate F31.62 [place] [address] [address] Aug, Chronic pain G89.29 [place] [address] [place] [address] Jul, Bipolar I disorder, most recent episode (or current) mixed, moderate F31.62 [place] [address] [address] Jul, Bipolar I disorder, most recent episode (or current) mixed, moderate F31.62 and BMI 60.0-69.9, adult Z68.44 [place] [address] [place] [address] Jul, Bipolar I disorder, most recent episode (or current) mixed, moderate F31.62 [place] [address] [address] Jul, Chronic pain G89.29 [place] [address] [place] [address] Jul, Bipolar I disorder, most recent episode (or current) mixed, moderate F31.62 [place] [address] [address] Jun, Polyneuropathy associated with underlyin g disease G63 and Diabetes E11.[address] [address] Jun, Bipolar I disorder, most recent episode (or current) mixed, moderate F31.62 [place] [address] [address] Jun, Chronic pain G89.29 [place] [address] [place] [address] May, Bipolar I disorder, most recent episode (or current) mixed, moderate F31.62 [place] [address] [place] [address] May, Bipolar I disorder, most recent episode (or current) mixed, moderate F31.62 [place] [address] [address] 20 May, 2017 Diabetic polyneuropathy associated with type 2 diabetes mellitus E11.42 [facility] [place] [address] [address] 18 May, 2017 Bipolar I disorder, most recent episode (or current) mixed, moderate F31.62 [place] [address] [address] 13 May, 2017 Bipolar I disorder, most recent episode (or current) mixed, moderate F31.62 [place] [address] [address] 12 May, 2017 Chronic pain G89.29 [place] [address] [address] 30 Apr, 2017 Bipolar I disorder, most recent episode (or current) mixed, moderate F31.62 [place] [address] [address] Apr, [place] [address] [address] Apr, Chronic pain G89.29 and DM neuro manif t ype II E11.49 [place] [address] [address] Apr, [place] [address] [address] Apr, Bipolar I disorder, most recent episode (or current) mixed, moderate F31.62 [place] [address] [address] 14 Apr, 2017 Chronic pain G89.29 [place] [address] [address] Apr, Iliotibial band syndrome, left M76.32 [facility] [place] [address] [address] Apr, Bipolar I disorder, most recent episode (or current) mixed, moderate F31.62 [facility], [place] [address] [address] Mar, Bipolar I disorder, most recent episode (or current) mixed, moderate F31.62 [facility], [place] [address] [address] Mar, Bipolar I disorder, most recent episode (or current) mixed, moderate F31.62 [facility], [place] [address] [address] Mar, [place] [address] [address] Mar, Bipolar I disorder, most recent episode (or current) mixed, moderate F31.62 [place] [address] [address] Mar, Chronic pain G89.29 [place] [address] [address] Mar, Bipolar I disorder, most recent episode (or current) mixed, moderate F31.62 [place] [address] [address] Mar, Bipolar I disorder, most recent episode (or current) mixed, moderate F31.62 [place] [address] [address] Mar, Acute pain of left knee M25.562 ; Left h ip pain M25.552 ; Generalized edema R60.1 and Tongue swelling R22.0 [place] [address] [address] Mar, [place] [address] [address] Feb, Chronic pain G89.29 [place] [address] [address] Feb, Diabetes E11.9 [place] [address] [address] January, Chronic pain G89.29 [facility], [place] [address] [address] January, [facility], [place] [address] [address] January, Bipolar I disorder, most recent episode (or current) mixed, moderate F31.62 [facility], [place] [address] [address] Dec, Bipolar I disorder, most recent episode (or current) mixed, moderate F31.62 [facility], [place] [address] [address] Dec, Chronic pain G89.29 [facility], [place] [address] [address] Dec, Bipolar I disorder, most recent episode (or current) mixed, moderate F31.62 [place] [address] [address] Dec, Diabetes E11.9 ; Essential hypertension I10 ; Chronic pain G89.29 and Morbid obesity E66.01 [facility], [place] [address] [address] Dec, [facility], [place] [address] [address] Dec, Bipolar I disorder, most recent episode (or current) mixed, moderate F31.62 [facility], [place] [address] [address] Dec, Bipolar I disorder, most recent episode (or current) mixed, moderate F31.62 [facility], [place] [address] [address] Nov, Chronic pain G89.29 [facility], [place] [address] [address] Nov, Bipolar I disorder, most recent episode (or current) mixed, moderate F31.62 [place] [address] [address] Nov, [facility], [place] [address] [address] Nov, Bipolar I disorder, most recent episode (or current) mixed, moderate F31.62 [facility], [place] [address] [address] Nov, Bipolar I disorder, most recent episode (or current) mixed, moderate F31.62 [facility], [place] [address] [address] Nov, [facility], [place] [address] [address] Nov, [facility], [place] [address] [address] Nov, [facility], [place] [address] [address] Oct, Chronic pain G89.29 [facility], [place] [address] [address] Oct, Bipolar I disorder, most recent episode (or current) mixed, moderate F31.62 [facility], [place] [address] [address] Oct, [facility], [place] [address] [address] Oct, Chronic pain G89.29 ; Diabetes E11.9 ; A nxiety F41.9 and 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 [facility], [place] [address] [address] Oct, [facility], [place] [address] [address] Oct, Diabetes E11.9 [facility], [place] [address] [address] Oct, Bipolar I disorder, most recent episode (or current) mixed, moderate F31.62 [facility], [place] [address] [address] Sep, Chronic pain G89.29 [facility], [place] [address] [address] Sep, Chronic pain G89.29 [facility], [place] [address] [address] Aug, Chronic pain G89.29 [facility], [place] [address] [address] Jul, [facility], [place] [address] [address] Jul, Diabetes E11.9 [facility], [place] [address] [address] Jul, Chronic pain G89.29 [facility], [place] [address] [address] Jul, Bipolar I disorder, most recent episode (or current) mixed, moderate F31.62 [place] [address] [address] Jun, Bipolar I disorder, most recent episode (or current) mixed, moderate F31.62 [place] [address] [address] Jun, [facility], [place] [address] [address] Jun, Bipolar I disorder, most recent episode (or current) mixed, moderate F31.62 [place] [address] [address] 30 May, 2016 Insomnia, unspecified type G47.00 [place] [address] [address] May, Bipolar I disorder, most recent episode (or current) mixed, moderate F31.62 [place] [address] [address] 14 May, 2016 [place] [address] [address] May, Bipolar I disorder, most recent episode (or current) mixed, moderate F31.62 [place] [address] [address] May, Diabetes E11.9 and Essential hypertensio n I10 [place] [address] [address] Apr, Chronic pain G89.[address] [address] Apr, Bipolar I disorder, most recent episode (or current) mixed, moderate F31.62 [place] [address] [address] Apr, [place] [address] [address] Apr, [address] [address] Mar, Chronic pain G89.29 ; Headache, unspecif ied headache type R51 ; Neuropathy G62.9 ; Pain of right hip joint M25.551 and Essential hypertension I10 [place] [address] [address] Mar, Chronic pain G89.29 [place] [address] [address] Mar, Bipolar I disorder, most recent episode (or current) mixed, moderate F31.62 [place] [address] [address] Feb, Bipolar I disorder, most recent episode (or current) mixed, moderate F31.62 and Insomnia, unspecified type G47.00 [place] [address] [address] Feb, Chronic pain G89.29 [place] [address] [address] Feb, Bipolar I disorder, most recent episode (or current) mixed, moderate F31.62 [facility], [place] [address] [address] January, Bipolar I disorder, most recent episode (or current) mixed, moderate F31.62 [facility], [place] [address] [address] January, Chronic pain G89.29 [facility], [place] [address] [address] January, Chronic pain G89.29 and Essential hypert ension I10 [facility], [place] [address] [address] January, Bipolar I disorder, most recent episode (or current) mixed, moderate F31.62 [facility], [place] [address] [address] Dec, [facility], [place] [address] [address] Dec, [facility], [place] [address] [address] Dec, [facility], [place] [address] [address] Dec, [facility], [place] [address] [address] Nov, Reactive airway disease J45.909 [facility], [place] [address] [address] Nov, [facility], [place] [address] [address] Nov, [facility], [place] [address] [address] 30 Nov, 2015 [facility], [place] [address] [address] Nov, [facility], [place] [address] [address] Nov, Onychomycosis B35.1 ; Hammertoe M20.40 ; [place] or callus L84 and DM neuro manif type II E11.49 [place] [address] [address] Nov, Chronic pain G89.29 ; Leukocytosis D72.8 29 and Diabetes E11.9 [place] [address] [address] Nov, [place] [address] [address] Oct, Bronchitis J40 [place] [address] [address] Oct, [place] [address] [address] Oct, [address] [address] Oct, Mastoiditis, unspecified laterality H70. 90 and Type 2 diabetes mellitus with complication E11.[address] [address] Sep, [address] [address] Sep, Dysuria R30.0 ; Cough R05 ; Benign prost atic hyperplasia with lower urinary tract symptoms, unspecified morphology N40.1 ; Hypokalemia E87.6 and Eustachian tube dysfunction, unspecified laterality H69.80 [place] [address] [address] Sep, Moderate mixed bipolar I disorder F31.[address] [address] Sep, Hypokalemia E87.[address] [address] Sep, [address] [place] [address] Sep, Upper respiratory tract infection, unspe cified type J06.9 [facility], [place] [address] [address] Aug, [facility], [place] [address] [address] Aug, Dysuria R30.0 [facility], [place] [address] [address] Aug, [facility], [place] [address] [address] Jul, [facility], [place] [address] [address] Jul, [facility], [place] [address] [address] Jul, [facility], [place] [address] [address] Jul, [facility], [place] [address] [address] Jun, [facility], [place] [address] [address] Jun, [facility], [place] [address] [address] Jun, [facility], [place] [address] [address] May, [facility], [place] [address] [address] May, Bipolar I disorder, most recent episode (or current) mixed, moderate 296.62 [facility], [place] [address] [address] 16 May, 2015 [facility], [place] [address] [address] May, Bipolar I disorder, most recent episode (or current) mixed, moderate 296.62 and Major depressive disorder, recurrent episode, severe, specified as with psychotic behavior 296.34 [facility], [place] [address] [address] May, Bipolar I disorder, most recent episode (or current) mixed, moderate 296.62 [facility], [place] [address] [address] May, [facility], [place] [address] [address] Apr, [facility], [place] [address] [address] Apr, [facility], [place] [address] [address] Apr, Unspecified disorder of kidney and urete r 593.9 and Diabetes mellitus type 2, uncontrolled 250.02 [facility], [place] [address] [address] Apr, [facility], [place] [address] [address] Apr, [facility], [place] [address] [address] Apr, [facility], [place] [address] [address] Apr, [facility], [place] [address] [address] Apr, Diabetes mellitus type II, uncontrolled 250.02 [facility], [place] [address] [address] Apr, [facility], [place] [address] [address] Mar, [facility], [place] [address] [address] Mar, [facility], [place] [address] [address] Mar, [facility], [place] [address] [address] Mar, Major depressive disorder, recurrent epi sode, severe, specified as with psychotic behavior 296.34 and Bipolar I disorder, most recent episode (or current) mixed, moderate 296.62 [facility], [place] [address] [address] Mar, Diabetes 250.00 ; Anuria 788.5 ; Nausea and vomiting 787.01 and Diarrhea 787.91 [facility], [place] [address] [address] Mar, Diabetes 250.00 [facility], [place] [address] [address] Mar, [facility], [place] [address] [place] [address] Mar, Diabetes 250.00 [facility], [place] [address] [address] Mar, [facility], [place] [address] [address] Mar, [facility], [place] [address] [address] Mar, [address] [address] Mar, [facility], [place] [address] [address] Mar, Bipolar I disorder, most recent episode (or current) mixed, moderate 296.62 and Major depressive disorder, recurrent episode, severe, specified as with psychotic behavior 296.34 [facility], [place] [address] [place] [address] Mar, Magnesium deficiency 275.2 ; Hypokalemia 276.8 ; Nausea & vomiting 787.01 and Diabetes mellitus type 2, uncontrolled 250.02 [facility], [place] [address] [address] Feb, [facility], [place] [address] [place] [address] Feb, Bipolar I disorder, most recent episode (or current) mixed, moderate 296.[address] [address] Feb, Nausea and vomiting 787.01 ; Left elbow pain 719.42 ; Anuria 788.5 and Diabetes 250.[address] [address] Feb, [place] [id number] Feb, Hypopotassemia 276.8 and Hypokalemia [address] [address] Feb, Hypopotassemia 276.8 and Hypokalemia [address] [address] Feb, Seborrheic keratoses 702.[address] [address] Feb, Hypopotassemia 276.8 and Low magnesium l evels 275.[address] [address] January, [address] [address] January, [address] [address] January, [address] [address] January, Scalp lesion 709.[address] [address] January, [address] [address] Dec, Tear of medial cartilage or meniscus of knee, current 836.0 and 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 [place] [address] 29 Dec, 2014 [facility] [address] [id number] [place] [address] 29 Dec, 2014 [facility] [address] [id number] [place] [address] 28 Dec, 2014 Squamous cell carcinoma, 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 42 [facility] [address] [id number] [place] [address] 14 Dec, 2014 [facility] [address] [id number] [place] [address] 13 Dec, 2014 [facility] [address] [id number] [place] [address] Nov, [facility] [address] [id number] [place] [address] Nov, [facility] [address] [place] [id number] [place] [address] Nov, [facility] [address] [id number] [place] [address] Nov, [facility] [address] [id number] [place] [address] Nov, [facility] [address] [id number] [place] [address] Nov, [facility] [address] [id number] [place] [address] Nov, [facility] [address] [id number] [place] [address] Nov, [facility] [address] [id number] [place] [address] Nov, [facility] [address] [id number] [place] [address] Nov, [facility] [address] [id number] [place] [address] Nov, [facility] [address] [id number] [place] [address] Nov, [facility] [address] [id number] [place] [address] Oct, [facility] [address] [id number] [place] [address] Oct, [facility] [address] [id number] [place] [address] Oct, [facility] [address] [id number] [place] [address] Oct, 2014 [facility] [address] [id number] [place] [address] Oct, [facility] [address] [id number] [place] [address] Oct, [facility] [address] [id number] [place] [address] Oct, [facility] [address] [id number] [place] [address] Oct, 2014 [facility] [address] [id number] [place] [address] Oct, [facility] [address] [id number] [place] [address] Sep, [facility] [address] [id number] [place] [address] Sep, [facility] [address] [id number] [place] [address] Sep, [facility] [address] [id number] [place] [address] Sep, [facility] [address] [id number] [place] [address] Sep, [facility] [address] [id number] [place] [address] Sep, [facility] [address] [id number] [place] [address] Sep, [facility] [address] [id number] [place] [address] Sep, [facility] [address] [id number] [place] [address] Sep, [facility] [address] [id number] [place] [address] Sep, [facility] [address] [id number] [place] [address] Sep, [facility] [address] [id number] [place] [address] 08 Sep, 2014 [facility] [address] [id number] [place] [address] Sep, [facility] [address] [id number] [place] [address] Sep, [facility] [address] [id number] [place] [address] Sep, [facility] [address] [id number] [place] [address] Sep, [facility] [address] [id number] [place] [address] Aug, [facility] [address] [id number] [place] [address] Aug, [facility] [address] [id number] [place] [address] Aug, [facility] [address] [id number] [place] [address] 31 Aug, 2014 [facility] [address] [id number] [place] [address] Aug, [facility] [address] [id number] [place] [address] 31 Aug, 2014 [facility] [address] [id number] [place] [address] 17 Aug, 2014 [facility] [address] [id number] [place] [address] Aug, [facility] [address] [facility] [id number] [place] [address] Aug, [facility] [address] [facility] [id number] [place] [address] Aug, [facility] [address] [id number] [place] [address] Aug, [facility] [address] [facility] [place] [id number] Aug, [facility] [address] [facility] [id number] [place] [address] Aug, [facility] [address] [id number] [place] [address] Aug, [facility] [address] [id number] [place] [address] Aug, [facility] [address] [id number] [place] [address] Aug, [facility] [address] [id number] [place] [address] Aug, [facility] [address] [id number] [place] [address] Aug, [facility] [address] [id number] [place] [address] Aug, [facility] [address] [id number] [place] [address] Aug, [facility] [address] [facility] [id number] [place] [address] Aug, [facility] [address] [id number] [place] [address] Aug, [facility] [address] [id number] [place] [address] Aug, [facility] [address] [id number] [place] [address] Aug, [facility] [address] [id number] [place] [address] Aug, [facility] [address] [id number] [place] [address] Aug, [facility] [address] [id number] [place] [address] Aug, [facility] [address] [id number] [place] [address] Aug, [facility] [address] [id number] [place] [address] Aug, [facility] [address] [id number] [place] [address] Aug, [facility] [address] [id number] [place] [address] Jul, [facility] [address] [id number] [place] [address] Jul, [facility] [address] [id number] [place] [address] Jul, [facility] [address] [id number] [place] [address] Jul, [facility] [address] [id number] [place] [address] Jul, [facility] [address] [id number] [place] [address] Jul, [facility] [address] [id number] [place] [address] Jul, [facility] [address] [id number] [place] [address] Jul, [facility] [address] [id number] [place] [address] Jul, [facility] [address] [id number] [place] [address] Jul, [facility] [address] [id number] [place] [address] Jun, [facility] [address] [id number] [place] [address] Jun, [facility] [address] [id number] [place] [address] Jun, [facility] [place] [facility] [address] [id number] [place] [address] 16 Jun, 2014 [facility] [place] [facility] [address] [id number] [place] [address] Jun, [facility] [place] [facility] [address] [id number] [place] [address] Jun, [facility] [place] [facility] [address] [id number] [place] [address] Jun, [facility] [place] [facility] [address] [id number] [place] [address] Jun, [facility] [place] [facility] [address] [id number] [place] [address] Jun, [facility] [place] [facility] [address] [id number] [place] [address] Jun, [facility] [place] [facility] [address] [id number] [place] [address] 29 Sep, 2013 [facility] [place] [facility] [address] [id number] [place] [address] 29 Sep, 2013 [facility] [place] [facility] [address] [id number] [place] [address] 26 Sep, 2013 [facility] [place] [facility] [address] [id number] [place] [address] 26 Sep, 2013 [facility] [place] [facility] [address] [id number] [place] [address] 17 Sep, 2013 [facility] [place] [facility] [address] [id number] [place] [address] 17 Sep, 2013 [facility] [place] [facility] [address] [id number] [place] [address] 15 Sep, 2013 [facility] [place] [facility] [address] [id number] [place] [address] 15 May, 2013 [facility] [place] [facility] [address] [id number] [facility] [address] 15 May, 2013 [facility] [place] [facility] [address] [facility] [id number] [facility] [address] 15 May, 2013 [facility] [place] [facility] [address] [facility] [id number] [facility] [address] 10 May, 2013 [facility] [place] [facility] [address] [id number] [facility] [address] 10 May, 2013 [facility] [place] [facility] [address] [facility] [id number] [facility] [address] 09 May, 2013 [facility] [place] [facility] [address] [id number] [facility] [address] May, 2013 [facility] [place] [facility] [address] [id number] [place] [address] May, 2013 [facility] [place] [facility] [address] [id number] [facility] [address] May, 2013 [facility] [place] [facility] [address] [facility] [id number] [facility] [address] Apr, [facility] [place] [facility] [address] [id number] [facility] [address] Apr, [facility] [place] [facility] [address] [facility] [id number] [place] [address] Apr, [facility] [place] [facility] [address] [id number] [place] [address] Apr, 2013 [facility] [place] [facility] [address] [facility] [id number] [facility] [address] Apr, 2013 [facility] [place] [facility] [address] [id number] [place] [address] Apr, [facility] [place] [facility] [address] [facility] [id number] [place] [address] Apr, 2013 [facility] [place] [facility] [address] [id number] [place] [address] Apr, 2013 [facility] [place] [facility] [address] [id number] [place] [address] Apr, [facility] [place] [facility] [address] [id number] [facility] [address] Apr, [facility] [place] [facility] [address] [facility] [id number] [place] [address] Apr, [facility] [place] [facility] [address] [id number] [place] [address] Apr, [facility] [place] [facility] [address] [facility] [id number] [place] [address] Apr, [facility] [place] [facility] [address] [id number] [place] [address] Apr, [facility] [place] [facility] [address] [id number] [place] [address] Apr, [facility] [place] [facility] [address] [id number] [place] [address] Mar, [facility] [place] [facility] [address] [id number] [place] [address] Mar, [facility] [place] [facility] [address] [id number] [place] [address] Mar, [facility] [place] [facility] [address] [id number] [place] [address] Mar, [facility] [place] [facility] [address] [id number] [place] [address] Mar, [facility] [place] [facility] [address] [id number] [place] [address] Mar, [facility] [place] [facility] [address] [facility] [id number] [place] [address] Mar, [facility] [place] [facility] [address] [id number] [place] [address] Mar, [facility] [place] [facility] [address] [id number] [place] [address] Mar, [facility] [place] [facility] [address] [id number] [place] [address] Mar, [facility] [place] [facility] [address] [id number] [place] [address] Mar, 2013 [facility] [place] [facility] [address] [facility] [id number] [place] [address] Mar, 2013 [facility] [place] [facility] [address] [facility] [id number] [place] [address] Mar, 2013 [facility] [place] [facility] [address] [id number] [place] [address] Mar, 2013 [facility] [place] [facility] [address] [facility] [id number] [place] [address] Mar, 2013 [facility] [place] [facility] [address] [id number] [place] [address] Mar, 2013 [facility] [place] [facility] [address] [id number] [place] [address] Mar, 2013 [facility] [place] [facility] [address] [id number] [place] [address] Mar, 2013 [facility] [place] [facility] [address] [id number] [place] [address] Feb, [facility] [place] [facility] [address] [id number] [place] [address] Feb, [facility] [place] [facility] [address] [id number] [place] [address] Feb, [facility] [place] [facility] [address] [id number] [place] [address] Feb, [facility] [place] [facility] [address] [id number] [place] [address] Feb, [facility] [place] [facility] [address] [facility] [id number] [place] [address] Feb, [facility] [place] [facility] [address] [id number] [place] [address] Feb, [facility] [place] [facility] [address] [id number] [place] [address] Feb, [facility] [place] [facility] [address] [id number] [place] [address] Feb, [facility] [place] [facility] [address] [facility] [id number] [place] [address] Feb, [facility] [place] [facility] [address] [facility] [id number] [facility] [address] Feb, [facility] [place] [facility] [address] [id number] [place] [address] Feb, [facility] [place] [facility] [address] [id number] [place] [address] Feb, [facility] [place] [facility] [address] [facility] [id number] [facility] [address] Feb, [facility] [place] [facility] [address] [id number] [place] [address] January, [facility] [place] [facility] [address] [id number] [place] [address] January, [facility] [place] [facility] [address] [id number] [facility] [address] January, [facility] [place] [facility] [address] [facility] [id number] [place] [address] January, [facility] [place] [facility] [address] [id number] [place] [address] January, [facility] [place] [facility] [address] [id number] [place] [address] January, [facility] [place] [facility] [address] [id number] [place] [address] January, [facility] [place] [facility] [address] [facility] [id number] [place] [address] January, [facility] [place] [facility] [address] [id number] [place] [address] January, [facility] [place] [facility] [address] [id number] [place] [address] January, [facility] [place] [facility] [address] [id number] [place] [address] January, [facility] [place] [facility] [address] [id number] [place] [address] January, [facility] [place] [facility] [address] [id number] [place] [address] January, [facility] [place] [facility] [address] [id number] [place] [address] January, [facility] [place] [facility] [address] [id number] [place] [address] Dec, [facility] [place] [facility] [address] [facility] [id number] [place] [address] Dec, [facility] [place] [facility] [address] [id number] [place] [address] Dec, [facility] [place] [facility] [address] [id number] [place] [address] Dec, [facility] [place] [facility] [address] [id number] [place] [address] Dec, [facility] [place] [facility] [address] [id number] [place] [address] Dec, [facility] [place] [facility] [address] [id number] [place] [address] Dec, [facility] [place] [facility] [address] [id number] [place] [address] Dec, [facility] [place] [facility] [address] [id number] [place] [address] Dec, [facility] [place] [facility] [address] [id number] [place] [address] Dec, [facility] [place] [facility] [address] [id number] [place] [address] Nov, [facility] [place] [facility] [address] [id number] [place] [address] Nov, [facility] [place] [facility] [address] [id number] [place] [address] Nov, [facility] [place] [facility] [address] [id number] [place] [address] Nov, [facility] [place] [facility] [address] [facility] [id number] [place] [address] 08 Nov, 2013 [facility] [place] [facility] [address] [id number] [place] [address] Nov, [facility] [place] [facility] [address] [id number] [place] [address] Nov, [facility] [place] [facility] [address] [id number] [place] [address] Nov, [facility] [place] [facility] [address] [id number] [place] [address] Nov, [facility] [place] [facility] [address] [id number] [place] [address] Nov, [facility] [place] [facility] [address] [id number] [place] [address] Oct, [facility] [place] [facility] [address] [id number] [place] [address] Oct, [facility] [place] [facility] [address] [id number] [place] [address] Oct, [facility] [place] [facility] [address] [id number] [place] [address] Oct, [facility] [place] [facility] [address] [id number] [place] [address] Oct, [facility] [place] [facility] [address] [id number] [place] [address] Oct, [facility] [place] [facility] [address] [id number] [place] [address] 14 Oct, 2013 [facility] [place] [facility] [address] [id number] [place] [address] Oct, [facility] [place] [facility] [address] [id number] [place] [address] 05 Oct, 2013 [facility] [place] [facility] [address] [id number] [place] [address] 05 Oct, 2013 [facility] [place] [facility] [address] [id number] [place] [address] 04 Oct, 2013 [facility] [place] [facility] [address] [id number] [place] [address] Oct, [facility] [place] [facility] [address] [id number] [place] [address] Oct, [facility] [place] [facility] [address] [id number] [place] [address] Oct, [facility] [place] [facility] [address] [id number] [place] [address] Sep, [facility] [place] [facility] [address] [id number] [place] [address] Sep, [facility] [place] [facility] [address] [id number] [place] [address] 15 Sep, 2013 [facility] [place] [facility] [address] [id number] [place] [address] 15 Sep, 2013 [facility] [place] [facility] [address] [id number] [place] [address] 14 Sep, 2013 [facility] [place] [facility] [address] [id number] [place] [address] Sep, [facility] [place] [facility] [address] [id number] [place] [address] Sep, [facility] [place] [facility] [address] [id number] [place] [address] 14 Sep, 2013 [facility] [place] [facility] [address] [id number] [place] [address] 08 Sep, 2013 [facility] [place] [facility] [address] [id number] [place] [address] 08 Sep, 2013 [facility] [place] [facility] [address] [id number] [place] [address] Aug, [facility] [place] [facility] [address] [id number] [place] [address] Aug, [facility] [place] [facility] [address] [id number] [place] [address] Jul, [facility] [place] [facility] [address] [id number] [place] [address] Jul, [facility] [place] [facility] [address] [id number] [place] [address] Jul, [facility] [place] [facility] [address] [id number] [place] [address] Jul, [facility] [place] [facility] [address] [id number] [place] [address] Jul, [facility] [place] [facility] [address] [id number] [place] [address] Jul, [facility] [place] [facility] [address] [id number] [place] [address] Jul, [facility] [place] [facility] [address] [id number] [place] [address] Jul, [facility] [place] [facility] [address] [id number] [place] [address] Jul, [facility] [place] [facility] [address] [id number] [place] [address] Jul, [facility] [place] [facility] [address] [id number] [place] [address] Jul, [facility] [place] [facility] [address] [id number] [place] [address] Jul, [facility] [place] [facility] [address] [id number] [place] [address] Jul, [facility] [place] [facility] [address] [id number] [place] [address] Jul, [facility] [place] [facility] [address] [id number] [place] [address] Jul, [facility] [place] [facility] [address] [id number] [place] [address] Jul, [facility] [place] [facility] [address] [id number] [place] [address] Jul, [facility] [place] [facility] [address] [id number] [place] [address] Jul, 2012 [facility] [place] [facility] [address] [id number] [place] [address] Jul, 2012 [facility] [place] [facility] [address] [id number] [place] [address] Jun, 2012 [facility] [place] [facility] [address] [id number] [place] [address] Jun, 2012 [facility] [place] [facility] [address] [id number] [place] [address] Jun, 2012 [facility] [place] [facility] [address] [id number] [place] [address] Jun, 2012 [facility] [place] [facility] [address] [id number] [place] [address] Jun, 2012 [facility] [place] [facility] [address] [id number] [place] [address] Jun, 2012 [facility] [place] [facility] [address] [id number] [place] [address] Jun, 2012 [facility] [place] [facility] [address] [id number] [place] [address] Jun, [facility] [place] [facility] [address] [id number] [place] [address] Jun, [facility] [place] [facility] [address] [id number] [place] [address] Jun, [facility] [place] [facility] [address] [id number] [place] [address] Jun, 2012 [facility] [place] [facility] [address] [id number] [place] [address] 26 May, 2012 [facility] [place] [facility] [address] [id number] [place] [address] 25 Sep, 2012 [facility] [place] [facility] [address] [id number] [place] [address] 19 Sep, 2012 [facility] [place] [facility] [address] [id number] [place] [address] 17 Sep, 2012 [facility] [place] [facility] [address] [id number] [facility] [address] 11 May, 2012 [facility] [place] [facility] [address] [id number] [facility] [address] May, 2012 [facility] [place] [facility] [address] [facility] [id number] [facility] [address] May, [facility] [place] [facility] [address] [id number] [place] [address] May, [facility] [place] [address] [facility] [id number] [facility] [address] Apr, [facility] [address] [facility] [id number] [facility] [address] Apr, [facility] [address] [id number] [place] [address] Apr, [facility] [address] [id number] [place] [address] Apr, [facility] [address] [id number] [place] [address] Apr, [facility] [address] [id number] [place] [address] Mar, [facility] [address] [id number] [place] [address] Mar, [facility] [address] [id number] [place] [address] Mar, [facility] [address] [id number] [place] [address] Mar, [facility] [address] [facility] [id number] [place] [address] Mar, [facility] [address] [id number] [place] [address] Mar, [facility] [address] [id number] [place] [address] Mar, [facility] [address] [id number] [place] [address] Mar, [facility] [address] [id number] [place] [address] Feb, [facility] [address] [id number] [place] [address] Feb, [facility] [address] [id number] [place] [address] January, [facility] [address] [id number] [place] [address] January, [facility] [address] [id number] [place] [address] Dec, [facility] [address] [id number] [place] [address] Dec, [facility] [address] [id number] [place] [address] Nov, [facility] [address] [id number] [place] [address] Nov, [facility] [address] [id number] [place] [address] Nov, [facility] [address] [id number] [place] [address] Nov, [facility] [address] [id number] [place] [address] Oct, [facility] [address] [id number] [place] [address] Oct, [facility] [address] [id number] [place] [address] Oct, [facility] [address] [id number] [place] [address] Oct, [facility] [address] [id number] [place] [address] 16 Oct, 2012 [facility] [address] [id number] [place] [address] 14 Oct, 2012 [facility] [address] [id number] [place] [address] 08 Oct, 2012 [facility] [address] [id number] [place] [address] 07 Oct, 2012 [facility] [address] [id number] [place] [address] Oct, [facility] [address] [id number] [place] [address] Sep, [facility] [address] [id number] [place] [address] Sep, [facility] [address] [id number] [place] [address] Sep, [facility] [address] [id number] [place] [address] Sep, [facility] [address] [id number] [place] [address] Sep, [facility] [address] [id number] [place] [address] Sep, [facility] [address] [id number] [place] [address] Sep, [facility] [address] [id number] [place] [address] Sep, [facility] [address] [id number] [place] [address] Aug, [facility] [address] [id number] [place] [address] Aug, [facility] [address] [id number] [place] [address] Aug, [facility] [id number] [place] [address] Aug, [facility] [address] [id number] [place] [address] Aug, [facility] [id number] [place] [address] Aug, [facility] [address] [id number] [place] [address] Aug, [facility] [address] [id number] [place] [address] Aug, [facility] [address] [id number] [place] [address] Jul, [facility] [address] [id number] [place] [address] Jul, [facility] [address] [facility] [facility] [id number] [place] [address] Jul, [facility] [address] [id number] [place] [address] Jul, [facility] [address] [id number] [place] [address] Jul, [facility] [id number] [place] [address] Jul, [facility] [address] [id number] [place] [address] Jun, [facility] [address] [id number] [place] [address] Jun, [facility] [address] [id number] [place] [address] Jun, [facility] [address] [id number] [place] [address] Jun, [facility] [address] [id number] [place] [address] Jun, [facility] [address] [id number] [place] [address] Jun, [facility] [address] [id number] [place] [address] Jun, [facility] [address] [id number] [place] [address] Jun, [facility] [address] [id number] [place] [address] Jun, [facility] [address] [facility] [id number] [place] [address] 26 May, 2012 [facility] [address] [id number] [place] [address] 24 May, 2012 [facility] [address] [id number] [place] [address] May, [facility] [address] [id number] [place] [address] Apr, [facility] [address] [id number] [place] [address] Apr, [facility] [address] [id number] [place] [address] Apr, [facility] [address] [id number] [place] [address] Apr, [facility] [address] [id number] [place] [address] Apr, [facility] [address] [id number] [place] [address] Apr, [facility] [address] [id number] [place] [address] Mar, [facility] [address] [id number] [place] [address] Mar, [facility] [address] [id number] [place] [address] Mar, [facility] [address] [id number] [place] [address] Mar, [facility] [address] [id number] [place] [address] Feb, [facility] [address] [id number] [place] [address] Feb, [facility] [address] [id number] [place] [address] Feb, [facility] [address] [id number] [place] [address] Feb, [facility] [address] [id number] [place] [address] Feb, [facility] [address] [id number] [place] [address] January, [facility] [address] [id number] [place] [address] January, [facility] [address] [id number] [place] [address] January, [facility] [address] [id number] [place] [address] January, [facility] [address] [id number] [place] [address] January, [facility] [address] [id number] [place] [address] January, [facility] [address] [id number] [place] [address] Dec, [facility] [address] [id number] [place] [address] Dec, [facility] [address] [id number] [place] [address] Dec, [facility] [address] [id number] [place] [address] Dec, [facility] [address] [id number] [place] [address] Dec, [facility] [address] [id number] [place] [address] Nov, [facility] [address] [id number] [place] [address] 14 Nov, 2011 [facility] [address] [id number] [place] [address] Nov, [facility] [address] [id number] [place] [address] Nov, [facility] [address] [id number] [place] [address] 29 Oct, 2011 [facility] [address] [id number] [place] [address] Oct, [facility] [address] [id number] [place] [address] Oct, [facility] [address] [id number] [place] [address] Oct, [facility] [address] [id number] [place] [address] 08 Oct, 2011 [facility] [address] [id number] [place] [address] Sep, [facility] [address] [id number] [place] [address] Sep, [facility] [id number] [place] [address] Sep, [facility] [address] [id number] [place] [address] Sep, [facility] [id number] [place] [address] Sep, [facility] [address] [id number] [place] [address] Sep, [facility] [id number] [place] [address] Aug, [facility] [address] [id number] [place] [address] Aug, [facility] [address] [id number] [place] [address] Aug, [facility] [address] [id number] [place] [address] Jul, [facility] [address] [id number] [place] [address] Jul, [facility] [address] [id number] [place] [address] 10 Jul, 2011 [facility] [address] [id number] [place] [address] Jul, [facility] [address] [id number] [place] [address] Jun, [facility] [address] [id number] [place] [address] Jun, [facility] [address] [id number] [place] [address] Jun, [facility] [address] [id number] [place] [address] Jun, [facility] [address] [id number] [place] [address] Jun, [facility] [address] [id number] [place] [address] Jun, [facility] [address] [id number] [place] [address] Mar, [facility] [address] [id number] [place] [address] Dec, [facility] [address] [id number] [place] [address] Dec, [facility] [address] [id number] [place] [address] Nov, [facility] [address] [id number] [place] [address] 16 Nov, 2010 [facility] [address] [id number] [place] [address] Sep, [facility] [address] [id number] [place] [address] Aug, [facility] [address] [id number] [place] [address] Aug, [facility] [address] [id number] [place] [address] Aug, [facility] [address] [id number] [place] [address] 29 Aug, 2010 [facility] [address] [id number] [place] [address] 27 Aug, 2010 [facility] [address] [id number] [place] [address] 14 Aug, 2010 [facility] [address] [id number] [place] [address] 08 Aug, 2010 [facility] [address] [id number] [place] [address] 08 Aug, 2010 [facility] [address] [id number] [place] [address] 07 Aug, 2010 [facility] [address] [id number] [place] [address] 06 Aug, 2010 [facility] [address] [id number] [place] [address] Aug, [facility] [address] [id number] [place] [address] Aug, [facility] [address] [id number] [place] [address] Jul, [facility] [address] [id number] [place] [address] Jul, [facility] [address] [id number] [place] [address] 30 Jul, 2010 [facility] [address] [id number] [place] [address] 17 Jul, 2010 [facility] [address] [id number] [place] [address] Jul, [facility] [id number] [place] [address] Jul, [facility] [address] [id number] [place] [address] 24 Jun, 2010 [facility] [address] [id number] [place] [address] 19 Jun, 2010 [facility] [address] [facility] [id number] [place] [address] 19 Jun, 2010 [facility] [address] [id number] [place] [address] 13 Jun, 2010 [facility] [address] [id number] [place] [address] 16 Apr, 2010 [facility] [address] [id number] [place] [address] Mar, [facility] [address] [facility] [id number] [place] [address] Feb, [facility] [address] [id number] [place] [address] January, [facility] [address] [id number] [place] [address] 15 Dec, 2009 [facility] [address] [id number] [place] [address] Nov, [facility] [address] [id number] [place] [address] Aug, [facility] [address] [id number] [place] [address] Aug, [facility] [address] [id number] [place] [address] Aug, [facility] [address] [id number] [place] [address] Jul, [facility] [address] [id number] [place] [address] Jul, [facility] [address] [id number] [place] [address] Jul, [facility] [address] [id number] [place] [address] 30 Jun, 2009 [facility] [address] [id number] [place] [address] 29 Jun, 2009 [facility] [id number] [place] [address] Jun, [facility] [place] [id number] [place] [address] Jun, [facility] [place] [id number] [place] [address] Jun, [facility] [place] [address] [address] Jun, [facility] [place] [address] [address] Apr, [facility] [place] [address] [address] Apr, [facility] [place] [address] [address] Feb, [facility] [place] [address] [address] January, [facility] [place] [address] [address] Dec, IMMUNIZATIONS No Known Immunizations SOCIAL HISTORY [...] Medical History skin cancer-basal cell R hinduism (removed ) Medical History Arthritis Medical History [...] inability to urinate 09/16/15 Hospitalization History [facility] inpatient mental health ea rly 1999's Hospitalization History hyperkalemia 10/2017 Hospitalization History fluid in lung
--- OUTSIDE RECORDS SUMMARY | 2020-03-01 16:44 | XMS REPORT ---
Author Author Michele WASHBURN Organization [facility] Address [address] [place] [address] Care Team Providers Care Environmental Services Tech Name Role Phone NOEMI WASHBURN Unavailable PROBLEMS Type Condition ICD9-CM Code ZYO05-RV Code Onset Dates Condition S tatus SNOMED Code Problem DM neuro manif type II E11.49 Active 88062723 Problem Chronic pain G89.29 Active 0637260 1 Problem Diabetes E11.9 Active 70013884 Problem Reactive airway disease J45.909 Active 391057348278 Problem Leukocytosis D72.829 Active 1941333 06 Problem Insomnia, unspecified type G47.00 Act sharon 010235386 Problem Bipolar I disorder, most recent episode (or curr ent) mixed, moderate F31.62 Active 11988466 Problem Primary osteoarthritis of right knee M17.11 Active 127100286485476 Problem Cough R05 Active 84741112 Problem Pure hypercholesterolemia E78.00 Acti ve 816254993 Problem Dysuria R30.0 Active 36599237 Problem Benign prostatic hyperplasia with lower urinary tract symptoms, unspecified morphology N40.1 Active 77028 6007 Problem Eustachian tube dysfunction, unspecified laterality H69.80 Active 94456214 Problem Polyneuropathy associated with underlying disease G63 Active 135584844 Problem Diabetic polyneuropathy associated with type 2 d iabetes mellitus E11.42 Active 83681988 Problem Anemia of chronic illness D63.8 Acti ve 493219675 Problem Chronic lymphocytic leukemia C91.10 A ctive 73914202 Problem Bilateral primary osteoarthritis of knee M17.0 Active 475583517 Problem 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 Active 562591451 Problem Eye exam abnormal R93.8 Active 16 8222862 Problem Retinal edema H35.81 Active 679089 6 Problem Lymphocytosis D72.820 Active 196317 09 Problem Bipolar disorder, in partial remission, most rec ent episode depressed F31.75 Active 08648016 Problem Hypokalemia E87.6 Active 57944843 Problem Falling R29.6 Active 666284976 Problem Pressure ulcer of other site, stage 3 L89.893 Active 739792170 Problem Other iron deficiency anemia D50.8 A ctive 79489188 Problem Mild cognitive impairment G31.84 Acti ve 679826767 Problem Skin cancer C44.90 Active 03467228 7 Problem FDC (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 Z79.4 Active 795188837 Problem Morbid obesity E66.01 Active 53402 6002 Problem Mood disorder F39 Active 208564 05 Problem Anxiety F41.9 Active 65752360 Problem Essential hypertension I10 Active 19185674 Problem Bipolar disorder F31.9 Active 137 77813 Problem Chronic diastolic (congestive) heart failure I50.3 2 Active 678797907 Problem Psychophysiological insomnia F51.04 A ctive 891461799 Problem Type 2 diabetes mellitus with diabetic neuropathy, uns pecified E11.40 Active 49116351 ALLERGIES No Information ENCOUNTERS Encounter Location Date Diagnosis [place] [address] [address] Dec, [place] [address] [address] Dec, [place] [address] [address] Nov, [place] [address] [address] Nov, [place] [address] [address] Nov, Syncope, unspecified syncope type R55 [place] [address] [address] Nov, Mood disorder F39 [place] [address] [address] Oct, Chronic pain G89.29 [place] [address] [address] Oct, [place] [address] [address] Oct, Mood disorder F39 [facility] [address] [id number] [place] [address] Oct, [facility] [address] [facility] [place] [address] Oct, Bipolar disorder, in partial remission, most recent episode depressed F31.75 and Mild cognitive impairment G31.84 [facility] [address] [place] [id number] [place] [address] 04 Oct, 2019 Mood disorder F39 [facility] [address] [facility] [place] [address] Sep, [facility] [address] [place] [id number] [place] [address] Sep, Mood disorder F39 [facility] [address] [place] [id number] [place] [address] Sep, Bipolar disorder, in partial remission, most recent episode depressed F31.75 and Mild cognitive impairment G31.84 [facility] [address] [facility] [place] [address] Sep, Mood disorder F39 [facility] [address] [place] [id number] [place] [address] Sep, [facility] [address] [id number] [place] [address] Sep, Mood disorder F39 [facility] [address] [id number] [place] [address] Sep, [facility] [address] [id number] [place] [address] Aug, Mood disorder F39 [facility] [address] [place] [id number] [place] [address] Aug, [facility] [address] [id number] [place] [address] Aug, [facility] [address] [facility] [place] [address] Aug, [facility] [address] [place] [address] [id number] [place] [address] Aug, [facility] [address] [place] [id number] [place] [address] Aug, [facility] [address] [place] [id number] [place] [address] Aug, [facility] [address] [address] Aug, [facility] [address] [address] Aug, Essential hypertension I10 [facility] [address] [address] Aug, Bipolar disorder, in partial remission, most recent episode depressed F31.75 and Mild cognitive impairment G31.84 [facility] [address] [address] Aug, Mood disorder F39 [facility] [address] [address] Aug, [facility] [address] [address] Aug, Bipolar disorder, in partial remission, most recent episode depressed F31.75 and Mild cognitive impairment G31.84 [facility] [address] [address] Jul, Bipolar disorder, in partial remission, most recent episode depressed F31.75 and Mild cognitive impairment G31.84 [facility] [address] [place] [id number] [place] [address] Jul, Psychophysiological insomnia F51.04 [facility] [address] [place] [id number] [place] [address] Jul, [facility] [address] [address] Jul, [facility] [address] [address] Jul, [facility] [address] [place] [id number] [place] [address] Jul, [facility] [address] [address] Jul, [facility] [address] [address] Jul, [place] [address] [address] Jul, Bipolar disorder, in partial remission, most recent episode depressed F31.75 and Mild cognitive impairment G31.84 [place] [address] [address] Jul, Chronic pain G89.29 ; Diabetes E11.9 ; E ssential hypertension I10 ; Ill feeling R68.89 ; Local infection of the skin and subcutaneous tissue, unspecified L08.9 and Other injury of unspecified body region, initial encounter T14.8XXA [place] [address] [place] [id number] [place] [address] Jun, Bipolar disorder, in partial remission, most recent episode depressed F31.75 and Mild cognitive impairment G31.84 [place] [address] [address] Jun, [place] [address] [address] Jun, Bipolar disorder, in partial remission, most recent episode depressed F31.75 and Mild cognitive impairment G31.84 [place] [address] [place] [id number] [place] [address] Jun, Psychophysiological insomnia F51.04 [place] [address] [address] Jun, Psychophysiological insomnia F51.04 ; Ch ronic pain G89.29 ; Bipolar I disorder, most recent episode (or current) mixed, moderate F31.62 ; 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 ; Polyneuropathy associated with underlying disease G63 ; Type 2 diabetes mellitus with diabetic neuropathy, unspecified E11.40 ; FDC (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 Z79.4 and Hyperglycemia R73.[address] [address] Jun, Bipolar disorder, in partial remission, most recent episode depressed F31.75 and Mild cognitive impairment G31.[address] [address] Jun, [address] [address] Jun, Bipolar disorder F31.[address] [address] May, Bipolar disorder, in partial remission, most recent episode depressed F31.75 and Mild cognitive impairment G31.[address] [address] May, [address] [address] Apr, Chronic pain G89.29 and Bipolar disorder F31.[address] [address] Mar, Bipolar disorder F31.9 and Chronic pain G89.[address] [address] Feb, Bipolar disorder F31.[address] [address] Feb, Cellulitis of right upper extremity L03. 113 and Skin abrasion T14.8XXA [address] [address] Feb, Bipolar disorder, in partial remission, most recent episode depressed F31.75 and Mild cognitive impairment G31.[address] [address] Feb, Chronic pain G89.[id number] [place] [address] Feb, Bipolar disorder, in partial remission, most recent episode depressed F31.75 and Mild cognitive impairment G31.84 [facility] [address] [address] January, Bipolar disorder, in partial remission, most recent episode depressed F31.75 and Mild cognitive impairment G31.84 [facility] [address] [address] January, Chronic pain G89.29 and Bipolar disorder F31.9 [facility] [address] [address] January, Bipolar disorder, in partial remission, most recent episode depressed F31.75 and Mild cognitive impairment G31.84 [place] [address] [address] Dec, [place] [address] [address] Dec, Chronic pain G89.29 and Bipolar disorder F31.9 [facility] [address] [address] Dec, Edema of both lower extremities R60.0 [facility] [address] [address] Dec, Bipolar disorder F31.9 [facility] [address] [address] Dec, Bipolar disorder, in partial remission, most recent episode depressed F31.75 and Mild cognitive impairment G31.84 [facility] [address] [place] [id number] [place] [address] Nov, [facility] [address] [address] Nov, Chronic pain G89.29 [facility] [address] [address] Nov, Bipolar disorder, in partial remission, most recent episode depressed F31.75 and Mild cognitive impairment G31.84 [place] [address] [address] Nov, Bipolar disorder F31.9 [place] [address] [address] 04 Nov, 2018 Encounter for Medicare annual [...] unspecified morphology N40.1 and Essential hypertension I10 [place] [address] [address] Oct, Chronic pain G89.29 [place] [address] [address] 18 Oct, 2018 Diabetes E11.9 [place] [address] [address] 11 Oct, 2018 Bipolar I disorder, most recent episode (or current) mixed, moderate F31.62 and Mild cognitive impairment G31.84 [place] [address] [address] Oct, Bipolar I disorder, most recent episode (or current) mixed, moderate F31.62 and Mild cognitive impairment G31.84 [place] [address] [address] Sep, Bipolar I disorder, most recent episode (or current) mixed, moderate F31.62 and Mild cognitive impairment G31.84 [place] [address] [address] Sep, [place] [address] [address] Sep, Diabetes E11.9 ; Hypoxia R09.02 ; Hyperg lycemia R73.9 ; Therapeutic drug monitoring Z51.81 ; BMI 50.0-59.9, adult Z68.43 and Skin cancer C44.90 [place] [address] [address] Sep, Chronic pain G89.29 [place] [address] [place] [address] Sep, Bipolar I disorder, most recent episode (or current) mixed, moderate F31.62 [place] [address] [address] Sep, [place] [address] [address] Sep, [place] [address] [address] Aug, Chronic pain G89.29 [place] [address] [address] Aug, Bipolar I disorder, most recent episode (or current) mixed, moderate F31.62 [place] [address] [address] Aug, Bipolar I disorder, most recent episode (or current) mixed, moderate F31.62 and Mild cognitive impairment G31.84 [place] [address] [address] Jul, [place] [address] [address] Jul, Chronic pain G89.29 [place] [address] [address] Jul, Bipolar I disorder, most recent episode (or current) mixed, moderate F31.62 and Mild cognitive impairment G31.84 [place] [address] [address] Jul, Bipolar I disorder, most recent episode (or current) mixed, moderate F31.62 and MCI (mild cognitive impairment) G31.84 [facility] [address] [place] [address] [id number] [place] [address] Jul, [facility] [address] [place] [id number] [place] [address] Jul, [facility] [address] [place] [id number] [place] [address] Jul, Bipolar I disorder, most recent episode (or current) mixed, moderate F31.62 [place] [address] [place] [id number] [place] [address] Jul, Chronic pain G89.29 [place] [address] [address] Jun, Bipolar I disorder, most recent episode (or current) mixed, moderate F31.62 [place] [address] [place] [id number] [place] [address] Jun, Pre-procedure lab exam Z01.812 [place] [address] [place] [id number] [place] [address] Jun, [place] [address] [place] [id number] [id number] Jun, [place] [address] [address] Jun, [address] [address] Jun, Forgetfulness R68.89 ; Pre-syncope R55 ; Localized edema R60.0 ; Other iron deficiency anemia D50.8 and BMI 50.0-59.9, adult Z68.43 [place] [address] [address] Jun, Chronic pain G89.29 [facility] [address] [place] [id number] [place] [address] Jun, Chronic pain G89.29 [place] [address] [address] Jun, Bipolar I disorder, most recent episode (or current) mixed, moderate F31.62 [place] [address] [address] May, Chronic pain G89.29 [place] [address] [address] Apr, [place] [address] [address] Apr, Chronic pain G89.29 [place] [address] [address] Apr, Primary osteoarthritis of right knee M17 .11 [place] [address] [address] Mar, [place] [address] [address] Mar, BMI 50.0-59.9, adult Z68.43 and Bipolar disorder, in partial remission, most recent episode depressed F31.75 [place] [address] [address] Mar, Diabetes E11.9 ; Pure hypercholesterolem ia E78.00 ; Essential hypertension I10 ; Nausea with vomiting, unspecified R11.2 and Headache, unspecified headache type R51 [place] [address] [address] Mar, Bipolar I disorder, most recent episode (or current) mixed, moderate F31.62 [place] [address] [address] Mar, Bipolar I disorder, most recent episode (or current) mixed, moderate F31.62 [place] [address] [address] Mar, Chronic pain G89.29 [place] [address] [address] Mar, Bipolar I disorder, most recent episode (or current) mixed, moderate F31.62 [place] [address] [address] Feb, Bipolar I disorder, most recent episode (or current) mixed, moderate F31.62 [place] [address] [address] Feb, Chronic pain G89.29 [place] [address] [address] Feb, Decubitus ulcer of right foot, stage 3 L 89.893 and BMI 50.0-59.9, adult Z68.43 [place] [address] [address] Feb, Bipolar I disorder, most recent episode (or current) mixed, moderate F31.62 [place] [address] [address] Feb, [place] [address] [address] January, [place] [address] [address] January, Chronic pain G89.29 [place] [address] [address] January, Bipolar I disorder, most recent episode (or current) mixed, moderate F31.62 [place] [address] [address] January, Bipolar I disorder, most recent episode (or current) mixed, moderate F31.62 [place] [address] [address] Dec, Bipolar I disorder, most recent episode (or current) mixed, moderate F31.62 and BMI 50.0-59.9, adult Z68.43 [place] [address] [address] Dec, Bipolar I disorder, most recent episode (or current) mixed, moderate F31.62 [facility] [address] [address] Dec, Chronic pain G89.29 [facility] [address] [address] Dec, DM neuro manif type II E11.49 ; Right fl ank pain R10.9 ; FDC 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 Z79.891 ; Encounter for medication monitoring Z51.81 and BMI 50.0-59.9, adult Z68.43 [place] [address] [address] Dec, Bipolar I disorder, most recent episode (or current) mixed, moderate F31.62 [place] [address] [address] Nov, Bipolar I disorder, most recent episode (or current) mixed, moderate F31.62 [place] [address] [address] Nov, Chronic pain G89.29 [place] [address] [address] Nov, Bipolar I disorder, most recent episode (or current) mixed, moderate F31.62 [place] [address] [address] Nov, Hypokalemia E87.6 [place] [address] [address] Nov, Bipolar I disorder, most recent episode (or current) mixed, moderate F31.62 [place] [address] [address] Oct, Chronic pain G89.29 [facility] [address] [address] Oct, BMI 50.0-59.9, adult Z68.43 and Bipolar I disorder, most recent episode (or current) mixed, moderate F31.62 [facility] [address] [address] Oct, Bipolar I disorder, most recent episode (or current) mixed, moderate F31.62 [facility] [address] [address] Oct, [facility] [address] [address] Oct, Hypokalemia E87.6 [place] [address] [address] Oct, DM neuro manif type II E11.49 [place] [address] [address] Oct, Bipolar I disorder, most recent episode (or current) mixed, moderate F31.62 [place] [address] [address] Oct, Bipolar I disorder, most recent episode (or current) mixed, moderate F31.62 [place] [address] [address] Oct, Hyperkalemia E87.5 ; Falling R29.6 ; BMI 50.0-59.9, adult Z68.43 and Acute left ankle pain M25.572 [place] [address] [address] Oct, DM neuro manif type II E11.49 [place] [address] [address] Oct, [place] [address] [address] Sep, Chronic pain G89.29 [place] [address] [address] Sep, [place] [address] [address] Sep, Bilateral primary osteoarthritis of knee M17.0 [place] [address] [address] 18 Sep, 2017 Generalized edema R60.1 [place] [address] [address] 16 Sep, 2017 Bipolar I disorder, most recent episode (or current) mixed, moderate F31.62 [place] [address] [address] 15 Sep, 2017 Hypoxia R09.02 ; Other hypervolemia E87. 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 ; Anemia of chronic illness D63.8 and BMI 50.0-59.9, adult Z68.43 [place] [address] [address] Sep, [place] [address] [address] Sep, Bipolar I disorder, most recent episode (or current) mixed, moderate F31.62 [place] [address] [address] 28 Aug, 2017 Chronic pain G89.29 [place] [address] [address] 27 Aug, 2017 Generalized edema R60.1 [place] [address] [address] 18 Aug, 2017 [place] [address] [address] 18 Aug, 2017 [place] [address] [address] 14 Aug, 2017 Bipolar I disorder, most recent episode (or current) mixed, moderate F31.62 [place] [address] [address] 07 Aug, 2017 Bipolar I disorder, most recent episode (or current) mixed, moderate F31.62 [place] [address] [address] Aug, Chronic pain G89.29 [place] [address] [place] [address] Jul, Bipolar I disorder, most recent episode (or current) mixed, moderate F31.62 [place] [address] [address] Jul, Bipolar I disorder, most recent episode (or current) mixed, moderate F31.62 and BMI 60.0-69.9, adult Z68.44 [place] [address] [place] [address] Jul, Bipolar I disorder, most recent episode (or current) mixed, moderate F31.62 [place] [address] [address] Jul, Chronic pain G89.29 [place] [address] [place] [address] Jul, Bipolar I disorder, most recent episode (or current) mixed, moderate F31.62 [place] [address] [address] Jun, Polyneuropathy associated with underlyin g disease G63 and Diabetes E11.[address] [address] Jun, Bipolar I disorder, most recent episode (or current) mixed, moderate F31.62 [place] [address] [address] Jun, Chronic pain G89.29 [place] [address] [place] [address] May, Bipolar I disorder, most recent episode (or current) mixed, moderate F31.62 [place] [address] [place] [address] May, Bipolar I disorder, most recent episode (or current) mixed, moderate F31.62 [place] [address] [address] 20 May, 2017 Diabetic polyneuropathy associated with type 2 diabetes mellitus E11.42 [facility] [address] [address] 18 May, 2017 Bipolar I disorder, most recent episode (or current) mixed, moderate F31.62 [place] [address] [address] 13 May, 2017 Bipolar I disorder, most recent episode (or current) mixed, moderate F31.62 [place] [address] [address] 12 May, 2017 Chronic pain G89.29 [place] [address] [address] 30 Apr, 2017 Bipolar I disorder, most recent episode (or current) mixed, moderate F31.62 [place] [address] [address] Apr, [place] [address] [address] Apr, Chronic pain G89.29 and DM neuro manif t ype II E11.49 [place] [address] [address] Apr, [place] [address] [address] Apr, Bipolar I disorder, most recent episode (or current) mixed, moderate F31.62 [place] [address] [address] 14 Apr, 2017 Chronic pain G89.29 [place] [address] [address] Apr, Iliotibial band syndrome, left M76.32 [facility] [address] [address] Apr, Bipolar I disorder, most recent episode (or current) mixed, moderate F31.62 [facility] [address] [address] Mar, Bipolar I disorder, most recent episode (or current) mixed, moderate F31.62 [facility] [address] [address] Mar, Bipolar I disorder, most recent episode (or current) mixed, moderate F31.62 [facility] [address] [address] Mar, [place] [address] [address] Mar, Bipolar I disorder, most recent episode (or current) mixed, moderate F31.62 [place] [address] [address] Mar, Chronic pain G89.29 [place] [address] [address] Mar, Bipolar I disorder, most recent episode (or current) mixed, moderate F31.62 [place] [address] [address] Mar, Bipolar I disorder, most recent episode (or current) mixed, moderate F31.62 [place] [address] [address] Mar, Acute pain of left knee M25.562 ; Left h ip pain M25.552 ; Generalized edema R60.1 and Tongue swelling R22.0 [place] [address] [address] Mar, [place] [address] [address] Feb, Chronic pain G89.29 [place] [address] [address] Feb, Diabetes E11.9 [place] [address] [address] January, Chronic pain G89.29 [facility] [address] [address] January, [facility] [address] [address] [address] January, Bipolar I disorder, most recent episode (or current) mixed, moderate F31.62 [facility] [address] [address] Dec, Bipolar I disorder, most recent episode (or current) mixed, moderate F31.62 [facility] [address] [address] Dec, Chronic pain G89.29 [facility] [address] [address] Dec, Bipolar I disorder, most recent episode (or current) mixed, moderate F31.62 [place] [address] [address] Dec, Diabetes E11.9 ; Essential hypertension I10 ; Chronic pain G89.29 and Morbid obesity E66.01 [facility] [address] [address] Dec, [facility] [address] [address] Dec, Bipolar I disorder, most recent episode (or current) mixed, moderate F31.62 [facility] [address] [address] Dec, Bipolar I disorder, most recent episode (or current) mixed, moderate F31.62 [facility] [address] [address] Nov, Chronic pain G89.29 [facility] [address] [address] Nov, Bipolar I disorder, most recent episode (or current) mixed, moderate F31.62 [place] [address] [address] Nov, [facility] [address] [address] Nov, Bipolar I disorder, most recent episode (or current) mixed, moderate F31.62 [facility] [address] [address] Nov, Bipolar I disorder, most recent episode (or current) mixed, moderate F31.62 [facility] [address] [address] Nov, [facility] [address] [address] Nov, [facility] [address] [address] Nov, [facility] [address] [address] Oct, Chronic pain G89.29 [facility] [address] [address] Oct, Bipolar I disorder, most recent episode (or current) mixed, moderate F31.62 [facility] [address] [address] Oct, [facility] [address] [address] Oct, Chronic pain G89.29 ; Diabetes E11.9 ; A nxiety F41.9 and 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 [facility] [address] [address] Oct, [facility] [address] [address] Oct, Diabetes E11.9 [facility] [address] [address] Oct, Bipolar I disorder, most recent episode (or current) mixed, moderate F31.62 [facility] [address] [address] Sep, Chronic pain G89.29 [facility] [address] [address] Sep, Chronic pain G89.29 [facility] [address] [address] Aug, Chronic pain G89.29 [facility] [address] [address] Jul, [facility] [address] [address] Jul, Diabetes E11.9 [facility] [address] [address] Jul, Chronic pain G89.29 [facility] [address] [address] Jul, Bipolar I disorder, most recent episode (or current) mixed, moderate F31.62 [place] [address] [address] Jun, Bipolar I disorder, most recent episode (or current) mixed, moderate F31.62 [place] [address] [address] Jun, [facility] [address] [address] Jun, Bipolar I disorder, most recent episode (or current) mixed, moderate F31.62 [place] [address] [address] 30 May, 2016 Insomnia, unspecified type G47.00 [place] [address] [address] May, Bipolar I disorder, most recent episode (or current) mixed, moderate F31.62 [place] [address] [address] 14 May, 2016 [place] [address] [address] May, Bipolar I disorder, most recent episode (or current) mixed, moderate F31.62 [place] [address] [address] May, Diabetes E11.9 and Essential hypertensio n I10 [place] [address] [address] Apr, Chronic pain G89.[address] [address] Apr, Bipolar I disorder, most recent episode (or current) mixed, moderate F31.62 [place] [address] [address] Apr, [place] [address] [address] Apr, [address] [address] Mar, Chronic pain G89.29 ; Headache, unspecif ied headache type R51 ; Neuropathy G62.9 ; Pain of right hip joint M25.551 and Essential hypertension I10 [place] [address] [address] Mar, Chronic pain G89.29 [place] [address] [address] Mar, Bipolar I disorder, most recent episode (or current) mixed, moderate F31.62 [place] [address] [address] Feb, Bipolar I disorder, most recent episode (or current) mixed, moderate F31.62 and Insomnia, unspecified type G47.00 [place] [address] [address] Feb, Chronic pain G89.29 [place] [address] [address] Feb, Bipolar I disorder, most recent episode (or current) mixed, moderate F31.62 [facility] [address] [address] January, Bipolar I disorder, most recent episode (or current) mixed, moderate F31.62 [facility] [address] [address] January, Chronic pain G89.29 [facility] [address] [address] January, Chronic pain G89.29 and Essential hypert ension I10 [facility] [address] [address] January, Bipolar I disorder, most recent episode (or current) mixed, moderate F31.62 [facility] [address] [address] Dec, [facility] [address] [address] Dec, [facility] [address] [address] Dec, [facility] [address] [address] Dec, [facility] [address] [address] Nov, Reactive airway disease J45.909 [facility] [address] [address] Nov, [facility] [address] [address] Nov, [facility] [address] [address] 30 Nov, 2015 [facility] [address] [address] Nov, [facility] [address] [address] Nov, Onychomycosis B35.1 ; Hammertoe M20.40 ; Wilkinson or callus L84 and DM neuro manif type II E11.49 [place] [address] [address] Nov, Chronic pain G89.29 ; Leukocytosis D72.8 29 and Diabetes E11.9 [place] [address] [address] Nov, [place] [address] [address] Oct, Bronchitis J40 [place] [address] [address] Oct, [place] [address] [address] Oct, [address] [address] Oct, Mastoiditis, unspecified laterality H70. 90 and Type 2 diabetes mellitus with complication E11.[address] [address] Sep, [address] [address] Sep, Dysuria R30.0 ; Cough R05 ; Benign prost atic hyperplasia with lower urinary tract symptoms, unspecified morphology N40.1 ; Hypokalemia E87.6 and Eustachian tube dysfunction, unspecified laterality H69.80 [place] [address] [address] Sep, Moderate mixed bipolar I disorder F31.[address] [address] Sep, Hypokalemia E87.[address] [address] Sep, [address] [place] [address] Sep, Upper respiratory tract infection, unspe cified type J06.9 [facility] [address] [address] Aug, [facility] [address] [address] Aug, Dysuria R30.0 [facility] [address] [address] Aug, [facility] [address] [address] Jul, [facility] [address] [address] Jul, [facility] [address] [address] Jul, [facility] [address] [address] Jul, [facility] [address] [address] Jun, [facility] [address] [address] Jun, [facility] [address] [address] Jun, [facility] [address] [address] May, [facility] [address] [address] May, Bipolar I disorder, most recent episode (or current) mixed, moderate 296.62 [facility] [address] [address] 16 May, 2015 [facility] [address] [address] May, Bipolar I disorder, most recent episode (or current) mixed, moderate 296.62 and Major depressive disorder, recurrent episode, severe, specified as with psychotic behavior 296.34 [facility] [address] [address] May, Bipolar I disorder, most recent episode (or current) mixed, moderate 296.62 [facility] [address] [address] May, [facility] [address] [address] Apr, [facility] [address] [address] Apr, [facility] [address] [address] Apr, Unspecified disorder of kidney and urete r 593.9 and Diabetes mellitus type 2, uncontrolled 250.02 [facility] [address] [address] Apr, [facility] [address] [address] Apr, [facility] [address] [address] Apr, [facility] [address] [address] Apr, [facility] [address] [address] Apr, Diabetes mellitus type II, uncontrolled 250.02 [facility] [address] [address] Apr, [facility] [address] [address] Mar, [facility] [address] [address] Mar, [facility] [address] [address] Mar, [facility] [address] [address] Mar, Major depressive disorder, recurrent epi sode, severe, specified as with psychotic behavior 296.34 and Bipolar I disorder, most recent episode (or current) mixed, moderate 296.62 [facility] [address] [address] Mar, Diabetes 250.00 ; Anuria 788.5 ; Nausea and vomiting 787.01 and Diarrhea 787.91 [facility] [address] [address] Mar, Diabetes 250.00 [facility] [address] [address] Mar, [facility] [address] [place] [address] Mar, Diabetes 250.00 [facility] [address] [address] Mar, [facility] [address] [address] Mar, [facility] [address] [address] Mar, [address] [address] Mar, [facility] [address] [address] Mar, Bipolar I disorder, most recent episode (or current) mixed, moderate 296.62 and Major depressive disorder, recurrent episode, severe, specified as with psychotic behavior 296.34 [facility] [address] [place] [address] Mar, Magnesium deficiency 275.2 ; Hypokalemia 276.8 ; Nausea & vomiting 787.01 and Diabetes mellitus type 2, uncontrolled 250.02 [facility] [address] [address] Feb, [facility] [address] [place] [address] Feb, Bipolar I disorder, most recent episode (or current) mixed, moderate 296.[address] [address] Feb, Nausea and vomiting 787.01 ; Left elbow pain 719.42 ; Anuria 788.5 and Diabetes 250.[address] [address] Feb, [place] [address] Feb, Hypopotassemia 276.8 and Hypokalemia [address] [address] Feb, Hypopotassemia 276.8 and Hypokalemia [address] [address] Feb, Seborrheic keratoses 702.[address] [address] Feb, Hypopotassemia 276.8 and Low magnesium l evels 275.[address] [address] January, [address] [address] January, [address] [address] January, [address] [address] January, Scalp lesion 709.[address] [address] January, [address] [address] Dec, Tear of medial cartilage or meniscus of knee, current 836.0 and 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 [place] [address] 29 Dec, 2014 [facility] [address] [id number] [place] [address] 29 Dec, 2014 [facility] [address] [id number] [place] [address] 28 Dec, 2014 Squamous cell carcinoma, 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 42 [facility] [address] [id number] [place] [address] 14 Dec, 2014 [facility] [address] [id number] [place] [address] 13 Dec, 2014 [facility] [address] [id number] [place] [address] Nov, [facility] [address] [id number] [place] [address] Nov, [facility] [address] [place] [id number] [place] [address] Nov, [facility] [address] [id number] [place] [address] Nov, [facility] [address] [id number] [place] [address] Nov, [facility] [address] [id number] [place] [address] Nov, [facility] [address] [id number] [place] [address] Nov, [facility] [address] [id number] [place] [address] Nov, [facility] [address] [id number] [place] [address] Nov, [facility] [address] [id number] [place] [address] Nov, [facility] [address] [id number] [place] [address] Nov, [facility] [address] [id number] [place] [address] Nov, [facility] [address] [id number] [place] [address] Oct, [facility] [address] [id number] [place] [address] Oct, [facility] [address] [id number] [place] [address] Oct, [facility] [address] [id number] [place] [address] Oct, 2014 [facility] [address] [id number] [place] [address] Oct, [facility] [address] [id number] [place] [address] Oct, [facility] [address] [id number] [place] [address] Oct, [facility] [address] [id number] [place] [address] Oct, 2014 [facility] [address] [id number] [place] [address] Oct, [facility] [address] [id number] [place] [address] Sep, [facility] [address] [id number] [place] [address] Sep, [facility] [address] [id number] [place] [address] Sep, [facility] [address] [id number] [place] [address] Sep, [facility] [address] [id number] [place] [address] Sep, [facility] [address] [id number] [place] [address] Sep, [facility] [address] [id number] [place] [address] Sep, [facility] [address] [id number] [place] [address] Sep, [facility] [address] [id number] [place] [address] Sep, [facility] [address] [id number] [place] [address] Sep, [facility] [address] [id number] [place] [address] Sep, [facility] [address] [id number] [place] [address] 08 Sep, 2014 [facility] [address] [id number] [place] [address] Sep, [facility] [address] [id number] [place] [address] Sep, [facility] [address] [id number] [place] [address] Sep, [facility] [address] [id number] [place] [address] Sep, [facility] [address] [id number] [place] [address] Aug, [facility] [address] [id number] [place] [address] Aug, [facility] [address] [id number] [place] [address] Aug, [facility] [address] [id number] [place] [address] 31 Aug, 2014 [facility] [address] [id number] [place] [address] Aug, [facility] [address] [id number] [place] [address] 31 Aug, 2014 [facility] [address] [id number] [place] [address] 17 Aug, 2014 [facility] [address] [id number] [place] [address] Aug, [facility] [address] [facility] [id number] [place] [address] Aug, [facility] [address] [facility] [id number] [place] [address] Aug, [facility] [address] [id number] [place] [address] Aug, [facility] [place] [address] [facility] [id number] Aug, [facility] [address] [facility] [id number] [place] [address] Aug, [facility] [address] [id number] [place] [address] Aug, [facility] [address] [id number] [place] [address] Aug, [facility] [address] [id number] [place] [address] Aug, [facility] [address] [id number] [place] [address] Aug, [facility] [address] [id number] [place] [address] Aug, [facility] [address] [id number] [place] [address] Aug, [facility] [address] [id number] [place] [address] Aug, [facility] [address] [facility] [id number] [place] [address] Aug, [facility] [address] [id number] [place] [address] Aug, [facility] [address] [id number] [place] [address] Aug, [facility] [address] [id number] [place] [address] Aug, [facility] [address] [id number] [place] [address] Aug, [facility] [address] [id number] [place] [address] Aug, [facility] [address] [id number] [place] [address] Aug, [facility] [address] [id number] [place] [address] Aug, [facility] [address] [id number] [place] [address] Aug, [facility] [address] [id number] [place] [address] Aug, [facility] [address] [id number] [place] [address] Jul, [facility] [address] [id number] [place] [address] Jul, [facility] [address] [id number] [place] [address] Jul, [facility] [address] [id number] [place] [address] Jul, [facility] [address] [id number] [place] [address] Jul, [facility] [address] [id number] [place] [address] Jul, [facility] [address] [id number] [place] [address] Jul, [facility] [address] [id number] [place] [address] Jul, [facility] [address] [place] [id number] [place] [address] Jul, [facility] [address] [id number] [place] [address] Jul, [facility] [address] [id number] [place] [address] Jun, [facility] [address] [id number] [place] [address] Jun, [facility] [address] [id number] [place] [address] Jun, [facility] [address] [id number] [place] [address] 16 Jun, 2014 [facility] [address] [id number] [place] [address] Jun, [facility] [address] [id number] [place] [address] Jun, [facility] [address] [id number] [place] [address] Jun, [facility] [address] [id number] [place] [address] Jun, [facility] [address] [id number] [place] [address] Jun, [facility] [address] [id number] [place] [address] Jun, [facility] [address] [id number] [place] [address] 29 Sep, 2013 [facility] [address] [id number] [place] [address] 29 Sep, 2013 [facility] [address] [id number] [place] [address] 26 Sep, 2013 [facility] [address] [id number] [place] [address] 26 Sep, 2013 [facility] [address] [id number] [place] [address] 17 Sep, 2013 [facility] [address] [id number] [place] [address] 17 Sep, 2013 [facility] [address] [id number] [place] [address] 15 Sep, 2013 [facility] [address] [id number] [place] [address] 15 May, 2013 [facility] [address] [id number] [facility] [address] 15 May, 2013 [facility] [address] [facility] [id number] [facility] [place] [address] 15 May, 2013 [facility] [address] [facility] [id number] [facility] [place] [address] 10 May, 2013 [facility] [address] [id number] [facility] [place] [address] 10 May, 2013 [facility] [address] [facility] [id number] [facility] [place] [address] 09 May, 2013 [facility] [address] [id number] [facility] [place] [address] May, 2013 [facility] [address] [id number] [place] [address] May, 2013 [facility] [address] [id number] [facility] [place] [address] May, 2013 [facility] [address] [facility] [id number] [facility] [address] Apr, [facility] [address] [id number] [facility] [place] [address] Apr, [facility] [address] [facility] [id number] [place] [address] Apr, [facility] [address] [id number] [place] [address] Apr, 2013 [facility] [address] [facility] [id number] [facility] [address] Apr, 2013 [facility] [address] [id number] [place] [address] Apr, [facility] [address] [facility] [id number] [place] [address] Apr, 2013 [facility] [address] [id number] [place] [address] Apr, 2013 [facility] [facility] [address] [id number] [place] [address] Apr, [facility] [facility] [address] [id number] [facility] [address] Apr, [facility] [place] [facility] [address] [facility] [id number] [place] [address] Apr, [facility] [place] [facility] [address] [id number] [place] [address] Apr, [facility] [place] [facility] [address] [facility] [id number] [place] [address] Apr, [facility] [place] [facility] [address] [id number] [place] [address] Apr, [facility] [place] [facility] [address] [id number] [place] [address] Apr, [facility] [place] [facility] [address] [id number] [place] [address] Mar, [facility] [place] [facility] [address] [id number] [place] [address] Mar, [facility] [place] [facility] [address] [id number] [place] [address] Mar, [facility] [place] [facility] [address] [id number] [place] [address] Mar, [facility] [place] [facility] [address] [id number] [place] [address] Mar, [facility] [place] [facility] [address] [id number] [place] [address] Mar, [facility] [place] [facility] [address] [facility] [id number] [place] [address] Mar, [facility] [facility] [address] [id number] [place] [address] Mar, [facility] [facility] [address] [id number] [place] [address] Mar, [facility] [facility] [address] [id number] [place] [address] Mar, [facility] [place] [facility] [address] [id number] [place] [address] Mar, 2013 [facility] [facility] [address] [facility] [id number] [place] [address] Mar, 2013 [facility] [place] [facility] [address] [facility] [id number] [place] [address] Mar, 2013 [facility] [facility] [address] [id number] [place] [address] Mar, 2013 [facility] [facility] [address] [facility] [id number] [place] [address] Mar, 2013 [facility] [facility] [address] [id number] [place] [address] Mar, 2013 [facility] [facility] [address] [id number] [place] [address] Mar, 2013 [facility] [facility] [address] [id number] [place] [address] Mar, 2013 [facility] [facility] [address] [id number] [place] [address] Feb, [facility] [facility] [address] [id number] [place] [address] Feb, [facility] [facility] [address] [id number] [place] [address] Feb, [facility] [facility] [address] [id number] [place] [address] Feb, [facility] [facility] [address] [id number] [place] [address] Feb, [facility] [facility] [address] [facility] [id number] [place] [address] Feb, [facility] [facility] [address] [id number] [place] [address] Feb, [facility] [facility] [address] [id number] [place] [address] Feb, [facility] [facility] [address] [id number] [place] [address] Feb, [facility] [facility] [address] [facility] [id number] [place] [address] Feb, [facility] [facility] [address] [facility] [id number] [facility] [place] [address] Feb, [facility] [facility] [address] [id number] [place] [address] Feb, [facility] [facility] [address] [id number] [place] [address] Feb, [facility] [facility] [address] [facility] [id number] [facility] [place] [address] Feb, [facility] [facility] [address] [id number] [place] [address] January, [facility] [facility] [address] [id number] [place] [address] January, [facility] [facility] [address] [id number] [facility] [place] [address] January, [facility] [address] [facility] [id number] [place] [address] January, [facility] [address] [id number] [place] [address] January, [facility] [facility] [address] [id number] [place] [address] January, [facility] [facility] [address] [id number] [place] [address] January, [facility] [facility] [address] [facility] [id number] [place] [address] January, [facility] [facility] [address] [id number] [place] [address] January, [facility] [address] [id number] [place] [address] January, [facility] [facility] [address] [id number] [place] [address] January, [facility] [facility] [address] [id number] [place] [address] January, [facility] [facility] [address] [id number] [place] [address] January, [facility] [facility] [address] [id number] [place] [address] January, [facility] [facility] [address] [id number] [place] [address] Dec, [facility] [facility] [address] [facility] [id number] [place] [address] Dec, [facility] [facility] [address] [id number] [place] [address] Dec, [facility] [facility] [address] [id number] [place] [address] Dec, [facility] [address] [id number] [place] [address] Dec, [facility] [facility] [address] [id number] [place] [address] Dec, [facility] [facility] [address] [id number] [place] [address] Dec, [facility] [address] [id number] [place] [address] Dec, [facility] [facility] [address] [id number] [place] [address] Dec, [facility] [facility] [address] [id number] [place] [address] Dec, [facility] [facility] [address] [id number] [place] [address] Nov, [facility] [facility] [address] [id number] [place] [address] Nov, [facility] [facility] [address] [id number] [place] [address] Nov, [facility] [facility] [address] [id number] [place] [address] Nov, [facility] [address] [facility] [id number] [place] [address] 08 Nov, 2013 [facility] [address] [id number] [place] [address] Nov, [facility] [facility] [address] [id number] [place] [address] Nov, [facility] [address] [id number] [place] [address] Nov, [facility] [address] [id number] [place] [address] Nov, [facility] [address] [id number] [place] [address] Nov, [facility] [address] [id number] [place] [address] Oct, [facility] [address] [id number] [place] [address] Oct, [facility] [address] [id number] [place] [address] Oct, [facility] [address] [id number] [place] [address] Oct, [facility] [address] [id number] [place] [address] Oct, [facility] [address] [id number] [place] [address] Oct, [facility] [address] [id number] [place] [address] 14 Oct, 2013 [facility] [address] [id number] [place] [address] Oct, [facility] [address] [id number] [place] [address] 05 Oct, 2013 [facility] [address] [id number] [place] [address] 05 Oct, 2013 [facility] [address] [id number] [place] [address] 04 Oct, 2013 [facility] [address] [id number] [place] [address] Oct, [facility] [address] [id number] [place] [address] Oct, [facility] [address] [id number] [place] [address] Oct, [facility] [address] [id number] [place] [address] Sep, [facility] [address] [id number] [place] [address] Sep, [facility] [address] [id number] [place] [address] 15 Sep, 2013 [facility] [address] [id number] [place] [address] 15 Sep, 2013 [facility] [address] [id number] [place] [address] 14 Sep, 2013 [facility] [address] [id number] [place] [address] Sep, [facility] [facility] [address] [id number] [place] [address] Sep, [facility] [address] [id number] [place] [address] 14 Sep, 2013 [facility] [address] [id number] [place] [address] 08 Sep, 2013 [facility] [address] [id number] [place] [address] 08 Sep, 2013 [facility] [address] [id number] [place] [address] Aug, [facility] [address] [id number] [place] [address] Aug, [facility] [address] [id number] [place] [address] Jul, [facility] [address] [id number] [place] [address] Jul, [facility] [address] [id number] [place] [address] Jul, [facility] [address] [id number] [place] [address] Jul, [facility] [address] [id number] [place] [address] Jul, [facility] [address] [id number] [place] [address] Jul, [facility] [address] [id number] [place] [address] Jul, [facility] [address] [id number] [place] [address] Jul, [facility] [address] [id number] [place] [address] Jul, [facility] [address] [id number] [place] [address] Jul, [facility] [address] [id number] [place] [address] Jul, [facility] [address] [id number] [place] [address] Jul, [facility] [address] [id number] [place] [address] Jul, [facility] [address] [id number] [place] [address] Jul, [facility] [address] [id number] [place] [address] Jul, [facility] [address] [id number] [place] [address] Jul, [facility] [address] [id number] [place] [address] Jul, [facility] [address] [id number] [place] [address] Jul, 2012 [facility] [address] [id number] [place] [address] Jul, 2012 [facility] [address] [id number] [place] [address] Jun, 2012 [facility] [address] [id number] [place] [address] Jun, 2012 [facility] [facility] [address] [id number] [place] [address] Jun, 2012 [facility] [address] [id number] [place] [address] Jun, 2012 [facility] [address] [id number] [place] [address] Jun, 2012 [facility] [address] [id number] [place] [address] Jun, 2012 [facility] [address] [id number] [place] [address] Jun, 2012 [facility] [address] [id number] [place] [address] Jun, [facility] [address] [id number] [place] [address] Jun, [facility] [address] [id number] [place] [address] Jun, [facility] [facility] [address] [id number] [place] [address] Jun, 2012 [facility] [address] [id number] [place] [address] 26 May, 2012 [facility] [address] [id number] [place] [address] 25 Sep, 2012 [facility] [facility] [address] [id number] [place] [address] 19 Sep, 2012 [facility] [facility] [address] [id number] [place] [address] 17 Sep, 2012 [facility] [facility] [address] [id number] [facility] [place] [address] 11 May, 2012 [facility] [facility] [address] [id number] [facility] [address] May, 2012 [facility] [address] [facility] [id number] [facility] [place] [address] May, [facility] [facility] [address] [id number] [place] [address] May, [facility] [facility] [address] [facility] [id number] [facility] [place] [address] Apr, [facility] [facility] [address] [facility] [id number] [facility] [place] [address] Apr, [facility] [facility] [address] [id number] [place] [address] Apr, [facility] [facility] [address] [id number] [place] [address] Apr, [facility] [facility] [address] [id number] [place] [address] Apr, [facility] [facility] [address] [id number] [place] [address] Mar, [facility] [place] [facility] [address] [id number] [place] [address] Mar, [facility] [place] [facility] [address] [id number] [place] [address] Mar, [facility] [place] [facility] [address] [id number] [place] [address] Mar, [facility] [place] [facility] [address] [facility] [id number] [place] [address] Mar, [facility] [place] [facility] [address] [id number] [place] [address] Mar, [facility] [place] [facility] [address] [id number] [place] [address] Mar, [facility] [place] [facility] [address] [id number] [place] [address] Mar, [facility] [address] [id number] [place] [address] Feb, [facility] [address] [id number] [place] [address] Feb, [facility] [place] [facility] [address] [id number] [place] [address] January, [facility] [address] [id number] [place] [address] January, [facility] [place] [facility] [address] [id number] [place] [address] Dec, [facility] [address] [id number] [place] [address] Dec, [facility] [place] [facility] [address] [id number] [place] [address] Nov, [facility] [address] [id number] [place] [address] Nov, [facility] [place] [facility] [address] [id number] [place] [address] Nov, [facility] [place] [facility] [address] [id number] [place] [address] Nov, [facility] [place] [facility] [address] [id number] [place] [address] Oct, [facility] [place] [facility] [address] [id number] [place] [address] Oct, [facility] [place] [facility] [address] [id number] [place] [address] Oct, [facility] [place] [facility] [address] [id number] [place] [address] Oct, [facility] [place] [facility] [address] [id number] [place] [address] 16 Oct, 2012 [facility] [place] [facility] [address] [id number] [place] [address] 14 Oct, 2012 [facility] [place] [facility] [address] [id number] [place] [address] 08 Oct, 2012 [facility] [place] [facility] [address] [id number] [place] [address] 07 Oct, 2012 [facility] [place] [facility] [address] [id number] [place] [address] Oct, [facility] [place] [facility] [address] [id number] [place] [address] Sep, [facility] [place] [facility] [address] [id number] [place] [address] Sep, [facility] [place] [facility] [address] [id number] [place] [address] Sep, [facility] [place] [facility] [address] [id number] [place] [address] Sep, [facility] [place] [facility] [address] [id number] [place] [address] Sep, [facility] [place] [facility] [address] [id number] [place] [address] Sep, [facility] [place] [facility] [address] [id number] [place] [address] Sep, [facility] [place] [facility] [address] [id number] [place] [address] Sep, [facility] [place] [facility] [address] [id number] [place] [address] Aug, [facility] [place] [facility] [address] [id number] [place] [address] Aug, [facility] [place] [facility] [address] [id number] [place] [address] Aug, [facility] [place] [facility] [id number] [place] [address] Aug, [facility] [place] [facility] [address] [id number] [place] [address] Aug, [facility] [place] [facility] [id number] [place] [address] Aug, [facility] [place] [facility] [address] [id number] [place] [address] Aug, [facility] [place] [facility] [address] [id number] [place] [address] Aug, [facility] [address] [id number] [place] [address] Jul, [facility] [address] [id number] [place] [address] Jul, [facility] [address] [id number] [place] [address] Jul, [facility] [address] [id number] [place] [address] Jul, [facility] [address] [id number] [place] [address] Jul, [facility] [address] [id number] [place] [address] Jul, [facility] [address] [id number] [place] [address] Jun, [facility] [address] [id number] [place] [address] Jun, [facility] [address] [id number] [place] [address] Jun, [facility] [address] [id number] [place] [address] Jun, [facility] [address] [id number] [place] [address] Jun, [facility] [address] [id number] [place] [address] Jun, [facility] [address] [id number] [place] [address] Jun, [facility] [address] [id number] [place] [address] Jun, [facility] [address] [id number] [place] [address] Jun, [facility] [address] [facility] [id number] [place] [address] 26 May, 2012 [facility] [address] [id number] [place] [address] 24 May, 2012 [facility] [address] [id number] [place] [address] May, [facility] [address] [id number] [place] [address] Apr, [facility] [address] [id number] [place] [address] Apr, [facility] [address] [id number] [place] [address] Apr, [facility] [address] [id number] [place] [address] Apr, [facility] [address] [id number] [place] [address] Apr, [facility] [address] [id number] [place] [address] Apr, [facility] [address] [id number] [place] [address] Mar, [facility] [address] [id number] [place] [address] Mar, [facility] [address] [id number] [place] [address] Mar, [facility] [address] [id number] [place] [address] Mar, [facility] [address] [id number] [place] [address] Feb, [facility] [address] [id number] [place] [address] Feb, [facility] [address] [id number] [place] [address] Feb, [facility] [address] [id number] [place] [address] Feb, [facility] [address] [id number] [place] [address] Feb, [facility] [address] [id number] [place] [address] January, [facility] [address] [id number] [place] [address] January, [facility] [address] [id number] [place] [address] January, [facility] [address] [id number] [place] [address] January, [facility] [address] [id number] [place] [address] January, [facility] [address] [id number] [place] [address] January, [facility] [address] [id number] [place] [address] Dec, [facility] [address] [id number] [place] [address] Dec, [facility] [address] [id number] [place] [address] Dec, [facility] [address] [id number] [place] [address] Dec, [facility] [address] [id number] [place] [address] Dec, [facility] [address] [id number] [place] [address] Nov, [facility] [address] [id number] [place] [address] 14 Nov, 2011 [facility] [address] [id number] [place] [address] Nov, [facility] [address] [id number] [place] [address] Nov, [facility] [address] [id number] [place] [address] 29 Oct, 2011 [facility] [facility] [address] [id number] [place] [address] Oct, [facility] [address] [id number] [place] [address] Oct, [facility] [address] [id number] [place] [address] Oct, [facility] [address] [id number] [place] [address] 08 Oct, 2011 [facility] [address] [id number] [place] [address] Sep, [facility] [address] [id number] [place] [address] Sep, [facility] [id number] [place] [address] Sep, [facility] [address] [id number] [place] [address] Sep, [facility] [id number] [place] [address] Sep, [facility] [address] [id number] [place] [address] Sep, [facility] [id number] [place] [address] Aug, [facility] [address] [id number] [place] [address] Aug, [facility] [address] [id number] [place] [address] Aug, [facility] [address] [id number] [place] [address] Jul, [facility] [address] [id number] [place] [address] Jul, [facility] [address] [id number] [place] [address] 10 Jul, 2011 [facility] [address] [id number] [place] [address] Jul, [facility] [address] [id number] [place] [address] Jun, [facility] [address] [id number] [place] [address] Jun, [facility] [address] [id number] [place] [address] Jun, [facility] [address] [id number] [place] [address] Jun, [facility] [address] [id number] [place] [address] Jun, [facility] [address] [id number] [place] [address] Jun, [facility] [address] [id number] [place] [address] Mar, [facility] [address] [id number] [place] [address] Dec, [facility] [address] [id number] [place] [address] Dec, [facility] [address] [id number] [place] [address] Nov, [facility] [address] [id number] [place] [address] 16 Nov, 2010 [facility] [address] [id number] [place] [address] Sep, [facility] [address] [id number] [place] [address] Aug, [facility] [address] [id number] [place] [address] Aug, [facility] [address] [id number] [place] [address] Aug, [facility] [address] [id number] [place] [address] 29 Aug, 2010 [facility] [address] [id number] [place] [address] 27 Aug, 2010 [facility] [address] [id number] [place] [address] 14 Aug, 2010 [facility] [address] [id number] [place] [address] 08 Aug, 2010 [facility] [address] [id number] [place] [address] 08 Aug, 2010 [facility] [address] [id number] [place] [address] 07 Aug, 2010 [facility] [address] [id number] [place] [address] 06 Aug, 2010 [facility] [address] [id number] [place] [address] Aug, [facility] [address] [id number] [place] [address] Aug, [facility] [address] [id number] [place] [address] Jul, [facility] [address] [id number] [place] [address] Jul, [facility] [address] [id number] [place] [address] 30 Jul, 2010 [facility] [address] [id number] [place] [address] 17 Jul, 2010 [facility] [address] [id number] [place] [address] Jul, [facility] [id number] [place] [address] Jul, [facility] [address] [id number] [place] [address] 24 Jun, 2010 [facility] [address] [id number] [place] [address] 19 Jun, 2010 [facility] [address] [facility] [id number] [place] [address] 19 Jun, 2010 [facility] [address] [id number] [place] [address] 13 Jun, 2010 [facility] [address] [id number] [place] [address] 16 Apr, 2010 [facility] [address] [id number] [place] [address] Mar, [facility] [address] [facility] [id number] [place] [address] Feb, [facility] [address] [id number] [place] [address] January, [facility] [address] [id number] [place] [address] 15 Dec, 2009 [facility] [address] [id number] [place] [address] Nov, [facility] [address] [id number] [place] [address] Aug, [facility] [address] [id number] [place] [address] Aug, [facility] [address] [id number] [place] [address] Aug, [facility] [address] [id number] [place] [address] Jul, [facility] [address] [id number] [place] [address] Jul, [facility] [address] [id number] [place] [address] Jul, [facility] [address] [id number] [place] [address] 30 Jun, 2009 [facility] [address] [id number] [place] [address] 29 Jun, 2009 [facility] [id number] [place] [address] Jun, [facility] [id number] [place] [address] Jun, [facility] [id number] [place] [address] Jun, [facility] [address] [address] Jun, [facility] [address] [address] Apr, [facility] [address] [address] Apr, [facility] [address] [address] Feb, [facility] [address] [address] January, [facility] [address] [address] Dec, IMMUNIZATIONS No Known Immunizations SOCIAL HISTORY [...] Medical History skin cancer-basal cell R caodaism (removed ) Medical History Arthritis Medical History [...] [facility] inpatient mental health ea rly 1999's Hospitalization History hyperkalemia 10/2017 Hospitalization History fluid in lung
--- OUTSIDE RECORDS SUMMARY | 2020-03-01 16:44 | XMS REPORT ---
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 Name Role Phone NOEMI WASHBURN Unavailable PROBLEMS Type Condition ICD9-CM Code BVJ19-UR Code Onset Dates Condition S tatus SNOMED Code Problem DM neuro manif type II E11.49 Active 59498088 Problem Chronic pain G89.29 Active 6321572 1 Problem Diabetes E11.9 Active 91408290 Problem Reactive airway disease J45.909 Active 830497928348 Problem Leukocytosis D72.829 Active 2899751 06 Problem Insomnia, unspecified type G47.00 Act sharon 034581426 Problem Bipolar I disorder, most recent episode (or curr ent) mixed, moderate F31.62 Active 19120995 Problem Primary osteoarthritis of right knee M17.11 Active 535305334175929 Problem Cough R05 Active 38064242 Problem Pure hypercholesterolemia E78.00 Acti ve 274945557 Problem Dysuria R30.0 Active 01060482 Problem Benign prostatic hyperplasia with lower urinary tract symptoms, unspecified morphology N40.1 Active 23607 6007 Problem Eustachian tube dysfunction, unspecified laterality H69.80 Active 38246187 Problem Polyneuropathy associated with underlying disease G63 Active 584191556 Problem Diabetic polyneuropathy associated with type 2 d iabetes mellitus E11.42 Active 07056702 Problem Anemia of chronic illness D63.8 Acti ve 287243056 Problem Chronic lymphocytic leukemia C91.10 A ctive 43102749 Problem Bilateral primary osteoarthritis of knee M17.0 Active 428739031 Problem 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 Active 070466926 Problem Eye exam abnormal R93.8 Active 16 6910452 Problem Retinal edema H35.81 Active 004213 6 Problem Lymphocytosis D72.820 Active 880484 09 Problem Bipolar disorder, in partial remission, most rec ent episode depressed F31.75 Active 20375532 Problem Hypokalemia E87.6 Active 45447579 Problem Falling R29.6 Active 111813484 Problem Pressure ulcer of other site, stage 3 L89.893 Active 952807189 Problem Other iron deficiency anemia D50.8 A ctive 60434719 Problem Mild cognitive impairment G31.84 Acti ve 586326148 Problem Skin cancer C44.90 Active 12895863 7 Problem MCC (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 Z79.4 Active 290181849 Problem Morbid obesity E66.01 Active 81984 6002 Problem Mood disorder F39 Active 329879 05 Problem Anxiety F41.9 Active 94388560 Problem Essential hypertension I10 Active 97203852 Problem Bipolar disorder F31.9 Active 137 38552 Problem Chronic diastolic (congestive) heart failure I50.3 2 Active 228203636 Problem Psychophysiological insomnia F51.04 A ctive 801090900 Problem Type 2 diabetes mellitus with diabetic neuropathy, uns pecified E11.40 Active 64879495 ALLERGIES No Information ENCOUNTERS Encounter Location Date Diagnosis [place] [address] [address] Dec, [place] [address] [address] Dec, [place] [address] [address] Nov, [place] [address] [address] Nov, [place] [address] [address] Nov, Syncope, unspecified syncope type R55 [place] [address] [address] Nov, Mood disorder F39 [place] [address] [address] Oct, Chronic pain G89.29 [place] [address] [address] Oct, [place] [address] [address] Oct, Mood disorder F39 [facility] [address] [id number] [place] [address] Oct, [facility] [address] [id number] [place] [address] Oct, Bipolar disorder, in partial remission, most recent episode depressed F31.75 and Mild cognitive impairment G31.84 [facility] [address] [place] [id number] [place] [address] 04 Oct, 2019 Mood disorder F39 [facility] [address] [id number] [place] [address] Sep, [facility] [address] [place] [id number] [place] [address] Sep, Mood disorder F39 [facility] [address] [place] [id number] [place] [address] Sep, Bipolar disorder, in partial remission, most recent episode depressed F31.75 and Mild cognitive impairment G31.84 [facility] [address] [id number] [place] [address] Sep, Mood disorder F39 [facility] [address] [place] [id number] [place] [address] Sep, [facility] [address] [id number] [place] [address] Sep, Mood disorder F39 [facility] [address] [id number] [place] [address] Sep, [facility] [address] [id number] [place] [address] Aug, Mood disorder F39 [facility] [address] [place] [id number] [place] [address] Aug, [facility] [address] [id number] [place] [address] Aug, [facility] [address] [id number] [place] [address] Aug, [facility] [address] [place] [id number] [place] [address] Aug, [facility] [address] [place] [id number] [place] [address] Aug, [facility] [address] [place] [id number] [place] [address] Aug, [facility] [address] [address] Aug, [facility] [address] [address] Aug, Essential hypertension I10 [facility] [address] [address] Aug, Bipolar disorder, in partial remission, most recent episode depressed F31.75 and Mild cognitive impairment G31.84 [facility] [address] [address] Aug, Mood disorder F39 [facility] [address] [address] Aug, [facility] [address] [address] Aug, Bipolar disorder, in partial remission, most recent episode depressed F31.75 and Mild cognitive impairment G31.84 [facility] [address] [address] Jul, Bipolar disorder, in partial remission, most recent episode depressed F31.75 and Mild cognitive impairment G31.84 [facility] [address] [place] [id number] [place] [address] Jul, Psychophysiological insomnia F51.04 [facility] [address] [place] [id number] [place] [address] Jul, [facility] [address] [address] Jul, [facility] [address] [address] Jul, [facility] [address] [place] [id number] [place] [address] Jul, [facility] [address] [address] Jul, [facility] [address] [address] Jul, [place] [address] [address] Jul, Bipolar disorder, in partial remission, most recent episode depressed F31.75 and Mild cognitive impairment G31.84 [place] [address] [address] Jul, Chronic pain G89.29 ; Diabetes E11.9 ; E ssential hypertension I10 ; Ill feeling R68.89 ; Local infection of the skin and subcutaneous tissue, unspecified L08.9 and Other injury of unspecified body region, initial encounter T14.8XXA [place] [address] [place] [id number] [place] [address] Jun, Bipolar disorder, in partial remission, most recent episode depressed F31.75 and Mild cognitive impairment G31.84 [place] [address] [address] Jun, [place] [address] [address] Jun, Bipolar disorder, in partial remission, most recent episode depressed F31.75 and Mild cognitive impairment G31.84 [place] [address] [place] [id number] [place] [address] Jun, Psychophysiological insomnia F51.04 [place] [address] [address] Jun, Psychophysiological insomnia F51.04 ; Ch ronic pain G89.29 ; Bipolar I disorder, most recent episode (or current) mixed, moderate F31.62 ; 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 ; Polyneuropathy associated with underlying disease G63 ; Type 2 diabetes mellitus with diabetic neuropathy, unspecified E11.40 ; MCC (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 Z79.4 and Hyperglycemia R73.[address] [address] Jun, Bipolar disorder, in partial remission, most recent episode depressed F31.75 and Mild cognitive impairment G31.[address] [address] Jun, [address] [address] Jun, Bipolar disorder F31.[address] [address] May, Bipolar disorder, in partial remission, most recent episode depressed F31.75 and Mild cognitive impairment G31.[address] [address] May, [address] [address] Apr, Chronic pain G89.29 and Bipolar disorder F31.[address] [address] Mar, Bipolar disorder F31.9 and Chronic pain G89.[address] [address] Feb, Bipolar disorder F31.[address] [address] Feb, Cellulitis of right upper extremity L03. 113 and Skin abrasion T14.8XXA [address] [address] Feb, Bipolar disorder, in partial remission, most recent episode depressed F31.75 and Mild cognitive impairment G31.[address] [address] Feb, Chronic pain G89.[id number] [place] [address] Feb, Bipolar disorder, in partial remission, most recent episode depressed F31.75 and Mild cognitive impairment G31.84 [facility] [address] [address] January, Bipolar disorder, in partial remission, most recent episode depressed F31.75 and Mild cognitive impairment G31.84 [facility] [address] [address] January, Chronic pain G89.29 and Bipolar disorder F31.9 [facility] [address] [address] January, Bipolar disorder, in partial remission, most recent episode depressed F31.75 and Mild cognitive impairment G31.84 [place] [address] [address] Dec, [place] [address] [address] Dec, Chronic pain G89.29 and Bipolar disorder F31.9 [facility] [address] [address] Dec, Edema of both lower extremities R60.0 [facility] [address] [address] Dec, Bipolar disorder F31.9 [facility] [address] [address] Dec, Bipolar disorder, in partial remission, most recent episode depressed F31.75 and Mild cognitive impairment G31.84 [facility] [address] [place] [id number] [place] [address] Nov, [facility] [address] [address] Nov, Chronic pain G89.29 [facility] [address] [address] Nov, Bipolar disorder, in partial remission, most recent episode depressed F31.75 and Mild cognitive impairment G31.84 [place] [address] [address] Nov, Bipolar disorder F31.9 [place] [address] [address] 04 Nov, 2018 Encounter for Medicare annual [...] unspecified morphology N40.1 and Essential hypertension I10 [place] [address] [address] Oct, Chronic pain G89.29 [place] [address] [address] 18 Oct, 2018 Diabetes E11.9 [place] [address] [address] 11 Oct, 2018 Bipolar I disorder, most recent episode (or current) mixed, moderate F31.62 and Mild cognitive impairment G31.84 [place] [address] [address] Oct, Bipolar I disorder, most recent episode (or current) mixed, moderate F31.62 and Mild cognitive impairment G31.84 [place] [address] [address] Sep, Bipolar I disorder, most recent episode (or current) mixed, moderate F31.62 and Mild cognitive impairment G31.84 [place] [address] [address] Sep, [place] [address] [address] Sep, Diabetes E11.9 ; Hypoxia R09.02 ; Hyperg lycemia R73.9 ; Therapeutic drug monitoring Z51.81 ; BMI 50.0-59.9, adult Z68.43 and Skin cancer C44.90 [place] [address] [address] Sep, Chronic pain G89.29 [place] [address] [place] [address] Sep, Bipolar I disorder, most recent episode (or current) mixed, moderate F31.62 [place] [address] [address] Sep, [place] [address] [address] Sep, [place] [address] [address] Aug, Chronic pain G89.29 [place] [address] [address] Aug, Bipolar I disorder, most recent episode (or current) mixed, moderate F31.62 [place] [address] [address] Aug, Bipolar I disorder, most recent episode (or current) mixed, moderate F31.62 and Mild cognitive impairment G31.84 [place] [address] [address] Jul, [place] [address] [address] Jul, Chronic pain G89.29 [place] [address] [address] Jul, Bipolar I disorder, most recent episode (or current) mixed, moderate F31.62 and Mild cognitive impairment G31.84 [place] [address] [address] Jul, Bipolar I disorder, most recent episode (or current) mixed, moderate F31.62 and MCI (mild cognitive impairment) G31.84 [facility] [address] [place] [id number] [place] [address] Jul, [facility] [address] [place] [id number] [place] [address] Jul, [facility] [address] [place] [id number] [place] [address] Jul, Bipolar I disorder, most recent episode (or current) mixed, moderate F31.62 [place] [address] [place] [id number] [place] [address] Jul, Chronic pain G89.29 [place] [address] [address] Jun, Bipolar I disorder, most recent episode (or current) mixed, moderate F31.62 [place] [address] [place] [id number] [place] [address] Jun, Pre-procedure lab exam Z01.812 [place] [address] [place] [id number] [place] [address] Jun, [place] [address] [id number] [address] Jun, [place] [address] [address] Jun, [address] [address] Jun, Forgetfulness R68.89 ; Pre-syncope R55 ; Localized edema R60.0 ; Other iron deficiency anemia D50.8 and BMI 50.0-59.9, adult Z68.43 [place] [address] [address] Jun, Chronic pain G89.29 [facility] [address] [place] [id number] [place] [address] Jun, Chronic pain G89.29 [place] [address] [address] Jun, Bipolar I disorder, most recent episode (or current) mixed, moderate F31.62 [place] [address] [address] May, Chronic pain G89.29 [place] [address] [address] Apr, [place] [address] [address] Apr, Chronic pain G89.29 [place] [address] [address] Apr, Primary osteoarthritis of right knee M17 .11 [place] [address] [address] Mar, [place] [address] [address] Mar, BMI 50.0-59.9, adult Z68.43 and Bipolar disorder, in partial remission, most recent episode depressed F31.75 [place] [address] [address] Mar, Diabetes E11.9 ; Pure hypercholesterolem ia E78.00 ; Essential hypertension I10 ; Nausea with vomiting, unspecified R11.2 and Headache, unspecified headache type R51 [place] [address] [address] Mar, Bipolar I disorder, most recent episode (or current) mixed, moderate F31.62 [place] [address] [address] Mar, Bipolar I disorder, most recent episode (or current) mixed, moderate F31.62 [place] [address] [address] Mar, Chronic pain G89.29 [place] [address] [address] Mar, Bipolar I disorder, most recent episode (or current) mixed, moderate F31.62 [place] [address] [address] Feb, Bipolar I disorder, most recent episode (or current) mixed, moderate F31.62 [place] [address] [address] Feb, Chronic pain G89.29 [place] [address] [address] Feb, Decubitus ulcer of right foot, stage 3 L 89.893 and BMI 50.0-59.9, adult Z68.43 [place] [address] [address] Feb, Bipolar I disorder, most recent episode (or current) mixed, moderate F31.62 [place] [address] [address] Feb, [place] [address] [address] January, [place] [address] [address] January, Chronic pain G89.29 [place] [address] [address] January, Bipolar I disorder, most recent episode (or current) mixed, moderate F31.62 [place] [address] [address] January, Bipolar I disorder, most recent episode (or current) mixed, moderate F31.62 [place] [address] [address] Dec, Bipolar I disorder, most recent episode (or current) mixed, moderate F31.62 and BMI 50.0-59.9, adult Z68.43 [place] [address] [address] Dec, Bipolar I disorder, most recent episode (or current) mixed, moderate F31.62 [facility] [address] [address] Dec, Chronic pain G89.29 [facility] [address] [address] Dec, DM neuro manif type II E11.49 ; Right fl ank pain R10.9 ; MCC 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 Z79.891 ; Encounter for medication monitoring Z51.81 and BMI 50.0-59.9, adult Z68.43 [place] [address] [address] Dec, Bipolar I disorder, most recent episode (or current) mixed, moderate F31.62 [place] [address] [address] Nov, Bipolar I disorder, most recent episode (or current) mixed, moderate F31.62 [place] [address] [address] Nov, Chronic pain G89.29 [place] [address] [address] Nov, Bipolar I disorder, most recent episode (or current) mixed, moderate F31.62 [place] [address] [address] Nov, Hypokalemia E87.6 [place] [address] [address] Nov, Bipolar I disorder, most recent episode (or current) mixed, moderate F31.62 [place] [address] [address] Oct, Chronic pain G89.29 [facility] [address] [address] Oct, BMI 50.0-59.9, adult Z68.43 and Bipolar I disorder, most recent episode (or current) mixed, moderate F31.62 [facility] [address] [address] Oct, Bipolar I disorder, most recent episode (or current) mixed, moderate F31.62 [facility] [address] [address] Oct, [facility] [address] [address] Oct, Hypokalemia E87.6 [place] [address] [address] Oct, DM neuro manif type II E11.49 [place] [address] [address] Oct, Bipolar I disorder, most recent episode (or current) mixed, moderate F31.62 [place] [address] [address] Oct, Bipolar I disorder, most recent episode (or current) mixed, moderate F31.62 [place] [address] [address] Oct, Hyperkalemia E87.5 ; Falling R29.6 ; BMI 50.0-59.9, adult Z68.43 and Acute left ankle pain M25.572 [place] [address] [address] Oct, DM neuro manif type II E11.49 [place] [address] [address] Oct, [place] [address] [address] Sep, Chronic pain G89.29 [place] [address] [address] Sep, [place] [address] [address] Sep, Bilateral primary osteoarthritis of knee M17.0 [place] [address] [address] 18 Sep, 2017 Generalized edema R60.1 [place] [address] [address] 16 Sep, 2017 Bipolar I disorder, most recent episode (or current) mixed, moderate F31.62 [place] [address] [address] 15 Sep, 2017 Hypoxia R09.02 ; Other hypervolemia E87. 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 ; Anemia of chronic illness D63.8 and BMI 50.0-59.9, adult Z68.43 [place] [address] [address] Sep, [place] [address] [address] Sep, Bipolar I disorder, most recent episode (or current) mixed, moderate F31.62 [place] [address] [address] 28 Aug, 2017 Chronic pain G89.29 [place] [address] [address] 27 Aug, 2017 Generalized edema R60.1 [place] [address] [address] 18 Aug, 2017 [place] [address] [address] 18 Aug, 2017 [place] [address] [address] 14 Aug, 2017 Bipolar I disorder, most recent episode (or current) mixed, moderate F31.62 [place] [address] [address] 07 Aug, 2017 Bipolar I disorder, most recent episode (or current) mixed, moderate F31.62 [place] [address] [address] Aug, Chronic pain G89.29 [place] [address] [place] [address] Jul, Bipolar I disorder, most recent episode (or current) mixed, moderate F31.62 [place] [address] [address] Jul, Bipolar I disorder, most recent episode (or current) mixed, moderate F31.62 and BMI 60.0-69.9, adult Z68.44 [place] [address] [place] [address] Jul, Bipolar I disorder, most recent episode (or current) mixed, moderate F31.62 [place] [address] [address] Jul, Chronic pain G89.29 [place] [address] [place] [address] Jul, Bipolar I disorder, most recent episode (or current) mixed, moderate F31.62 [place] [address] [address] Jun, Polyneuropathy associated with underlyin g disease G63 and Diabetes E11.[address] [address] Jun, Bipolar I disorder, most recent episode (or current) mixed, moderate F31.62 [place] [address] [address] Jun, Chronic pain G89.29 [place] [address] [place] [address] May, Bipolar I disorder, most recent episode (or current) mixed, moderate F31.62 [place] [address] [place] [address] May, Bipolar I disorder, most recent episode (or current) mixed, moderate F31.62 [place] [address] [address] 20 May, 2017 Diabetic polyneuropathy associated with type 2 diabetes mellitus E11.42 [facility] [address] [address] 18 May, 2017 Bipolar I disorder, most recent episode (or current) mixed, moderate F31.62 [place] [address] [address] 13 May, 2017 Bipolar I disorder, most recent episode (or current) mixed, moderate F31.62 [place] [address] [address] 12 May, 2017 Chronic pain G89.29 [place] [address] [address] 30 Apr, 2017 Bipolar I disorder, most recent episode (or current) mixed, moderate F31.62 [place] [address] [address] Apr, [place] [address] [address] Apr, Chronic pain G89.29 and DM neuro manif t ype II E11.49 [place] [address] [address] Apr, [place] [address] [address] Apr, Bipolar I disorder, most recent episode (or current) mixed, moderate F31.62 [place] [address] [address] 14 Apr, 2017 Chronic pain G89.29 [place] [address] [address] Apr, Iliotibial band syndrome, left M76.32 [facility] [address] [address] Apr, Bipolar I disorder, most recent episode (or current) mixed, moderate F31.62 [facility] [address] [address] Mar, Bipolar I disorder, most recent episode (or current) mixed, moderate F31.62 [facility] [address] [address] Mar, Bipolar I disorder, most recent episode (or current) mixed, moderate F31.62 [facility] [address] [address] Mar, [place] [address] [address] Mar, Bipolar I disorder, most recent episode (or current) mixed, moderate F31.62 [place] [address] [address] Mar, Chronic pain G89.29 [place] [address] [address] Mar, Bipolar I disorder, most recent episode (or current) mixed, moderate F31.62 [place] [address] [address] Mar, Bipolar I disorder, most recent episode (or current) mixed, moderate F31.62 [place] [address] [address] Mar, Acute pain of left knee M25.562 ; Left h ip pain M25.552 ; Generalized edema R60.1 and Tongue swelling R22.0 [place] [address] [address] Mar, [place] [address] [address] Feb, Chronic pain G89.29 [place] [address] [address] Feb, Diabetes E11.9 [place] [address] [address] January, Chronic pain G89.29 [facility] [address] [address] January, [facility] [address] [address] January, Bipolar I disorder, most recent episode (or current) mixed, moderate F31.62 [facility] [address] [address] Dec, Bipolar I disorder, most recent episode (or current) mixed, moderate F31.62 [facility] [address] [address] Dec, Chronic pain G89.29 [facility] [address] [address] Dec, Bipolar I disorder, most recent episode (or current) mixed, moderate F31.62 [place] [address] [address] Dec, Diabetes E11.9 ; Essential hypertension I10 ; Chronic pain G89.29 and Morbid obesity E66.01 [facility] [address] [address] Dec, [facility] [address] [address] Dec, Bipolar I disorder, most recent episode (or current) mixed, moderate F31.62 [facility] [address] [address] Dec, Bipolar I disorder, most recent episode (or current) mixed, moderate F31.62 [facility] [address] [address] Nov, Chronic pain G89.29 [facility] [address] [address] Nov, Bipolar I disorder, most recent episode (or current) mixed, moderate F31.62 [place] [address] [address] Nov, [facility] [address] [address] Nov, Bipolar I disorder, most recent episode (or current) mixed, moderate F31.62 [facility] [address] [address] Nov, Bipolar I disorder, most recent episode (or current) mixed, moderate F31.62 [facility] [address] [address] Nov, [facility] [address] [address] Nov, [facility] [address] [address] Nov, [facility] [address] [address] Oct, Chronic pain G89.29 [facility] [address] [address] Oct, Bipolar I disorder, most recent episode (or current) mixed, moderate F31.62 [facility] [address] [address] Oct, [facility] [address] [address] Oct, Chronic pain G89.29 ; Diabetes E11.9 ; A nxiety F41.9 and 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 [facility] [address] [address] Oct, [facility] [address] [address] Oct, Diabetes E11.9 [facility] [address] [address] Oct, Bipolar I disorder, most recent episode (or current) mixed, moderate F31.62 [facility] [address] [address] Sep, Chronic pain G89.29 [facility] [address] [address] Sep, Chronic pain G89.29 [facility] [address] [address] Aug, Chronic pain G89.29 [facility] [address] [address] Jul, [facility] [address] [address] Jul, Diabetes E11.9 [facility] [address] [address] Jul, Chronic pain G89.29 [facility] [address] [address] Jul, Bipolar I disorder, most recent episode (or current) mixed, moderate F31.62 [place] [address] [address] Jun, Bipolar I disorder, most recent episode (or current) mixed, moderate F31.62 [place] [address] [address] Jun, [facility] [address] [address] Jun, Bipolar I disorder, most recent episode (or current) mixed, moderate F31.62 [place] [address] [address] 30 May, 2016 Insomnia, unspecified type G47.00 [place] [address] [address] May, Bipolar I disorder, most recent episode (or current) mixed, moderate F31.62 [place] [address] [address] 14 May, 2016 [place] [address] [address] May, Bipolar I disorder, most recent episode (or current) mixed, moderate F31.62 [place] [address] [address] May, Diabetes E11.9 and Essential hypertensio n I10 [place] [address] [address] Apr, Chronic pain G89.[address] [address] Apr, Bipolar I disorder, most recent episode (or current) mixed, moderate F31.62 [place] [address] [address] Apr, [place] [address] [address] Apr, [address] [address] Mar, Chronic pain G89.29 ; Headache, unspecif ied headache type R51 ; Neuropathy G62.9 ; Pain of right hip joint M25.551 and Essential hypertension I10 [place] [address] [address] Mar, Chronic pain G89.29 [place] [address] [address] Mar, Bipolar I disorder, most recent episode (or current) mixed, moderate F31.62 [place] [address] [address] Feb, Bipolar I disorder, most recent episode (or current) mixed, moderate F31.62 and Insomnia, unspecified type G47.00 [place] [address] [address] Feb, Chronic pain G89.29 [place] [address] [address] Feb, Bipolar I disorder, most recent episode (or current) mixed, moderate F31.62 [facility] [address] [address] January, Bipolar I disorder, most recent episode (or current) mixed, moderate F31.62 [facility] [address] [address] January, Chronic pain G89.29 [facility] [address] [address] January, Chronic pain G89.29 and Essential hypert ension I10 [facility] [address] [address] January, Bipolar I disorder, most recent episode (or current) mixed, moderate F31.62 [facility] [address] [address] Dec, [facility] [address] [address] Dec, [facility] [address] [address] Dec, [facility] [address] [address] Dec, [facility] [address] [address] Nov, Reactive airway disease J45.909 [facility] [address] [address] Nov, [facility] [address] [address] Nov, [facility] [address] [address] 30 Nov, 2015 [facility] [address] [address] Nov, [facility] [address] [address] Nov, Onychomycosis B35.1 ; Hammertoe M20.40 ; [place] or callus L84 and DM neuro manif type II E11.49 [place] [address] [address] Nov, Chronic pain G89.29 ; Leukocytosis D72.8 29 and Diabetes E11.9 [place] [address] [address] Nov, [place] [address] [address] Oct, Bronchitis J40 [place] [address] [address] Oct, [place] [address] [address] Oct, [address] [address] Oct, Mastoiditis, unspecified laterality H70. 90 and Type 2 diabetes mellitus with complication E11.[address] [address] Sep, [address] [address] Sep, Dysuria R30.0 ; Cough R05 ; Benign prost atic hyperplasia with lower urinary tract symptoms, unspecified morphology N40.1 ; Hypokalemia E87.6 and Eustachian tube dysfunction, unspecified laterality H69.80 [place] [address] [address] Sep, Moderate mixed bipolar I disorder F31.[address] [address] Sep, Hypokalemia E87.[address] [address] Sep, [address] [place] [address] Sep, Upper respiratory tract infection, unspe cified type J06.9 [facility] [address] [address] Aug, [facility] [address] [address] Aug, Dysuria R30.0 [facility] [address] [address] Aug, [facility] [address] [address] Jul, [facility] [address] [address] Jul, [facility] [address] [address] Jul, [facility] [address] [address] Jul, [facility] [address] [address] Jun, [facility] [address] [address] Jun, [facility] [address] [address] Jun, [facility] [address] [address] May, [facility] [address] [address] May, Bipolar I disorder, most recent episode (or current) mixed, moderate 296.62 [facility] [address] [address] 16 May, 2015 [facility] [address] [address] May, Bipolar I disorder, most recent episode (or current) mixed, moderate 296.62 and Major depressive disorder, recurrent episode, severe, specified as with psychotic behavior 296.34 [facility] [address] [address] May, Bipolar I disorder, most recent episode (or current) mixed, moderate 296.62 [facility] [address] [address] May, [facility] [address] [address] Apr, [facility] [address] [address] Apr, [facility] [address] [address] Apr, Unspecified disorder of kidney and urete r 593.9 and Diabetes mellitus type 2, uncontrolled 250.02 [facility] [address] [address] Apr, [facility] [address] [address] Apr, [facility] [address] [address] Apr, [facility] [address] [address] Apr, [facility] [address] [address] Apr, Diabetes mellitus type II, uncontrolled 250.02 [facility] [address] [address] Apr, [facility] [address] [address] Mar, [facility] [address] [address] Mar, [facility] [address] [address] Mar, [facility] [address] [address] Mar, Major depressive disorder, recurrent epi sode, severe, specified as with psychotic behavior 296.34 and Bipolar I disorder, most recent episode (or current) mixed, moderate 296.62 [facility] [address] [address] Mar, Diabetes 250.00 ; Anuria 788.5 ; Nausea and vomiting 787.01 and Diarrhea 787.91 [facility] [address] [address] Mar, Diabetes 250.00 [facility] [address] [address] Mar, [facility] [address] [place] [address] Mar, Diabetes 250.00 [facility] [address] [address] Mar, [facility] [address] [address] Mar, [facility] [address] [address] Mar, [address] [address] Mar, [facility] [address] [address] Mar, Bipolar I disorder, most recent episode (or current) mixed, moderate 296.62 and Major depressive disorder, recurrent episode, severe, specified as with psychotic behavior 296.34 [facility] [address] [place] [address] Mar, Magnesium deficiency 275.2 ; Hypokalemia 276.8 ; Nausea & vomiting 787.01 and Diabetes mellitus type 2, uncontrolled 250.02 [facility] [address] [address] Feb, [facility] [address] [place] [address] Feb, Bipolar I disorder, most recent episode (or current) mixed, moderate 296.[address] [address] Feb, Nausea and vomiting 787.01 ; Left elbow pain 719.42 ; Anuria 788.5 and Diabetes 250.[address] [address] Feb, [place] [address] Feb, Hypopotassemia 276.8 and Hypokalemia [address] [address] Feb, Hypopotassemia 276.8 and Hypokalemia [address] [address] Feb, Seborrheic keratoses 702.[address] [address] Feb, Hypopotassemia 276.8 and Low magnesium l evels 275.[address] [address] January, [address] [address] January, [address] [address] January, [address] [address] January, Scalp lesion 709.[address] [address] January, [address] [address] Dec, Tear of medial cartilage or meniscus of knee, current 836.0 and 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 [place] [address] 29 Dec, 2014 [facility] [address] [id number] [place] [address] 29 Dec, 2014 [facility] [address] [id number] [place] [address] 28 Dec, 2014 Squamous cell carcinoma, 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 42 [facility] [address] [id number] [place] [address] 14 Dec, 2014 [facility] [address] [id number] [place] [address] 13 Dec, 2014 [facility] [address] [id number] [place] [address] Nov, [facility] [address] [id number] [place] [address] Nov, [facility] [address] [place] [id number] [place] [address] Nov, [facility] [address] [id number] [place] [address] Nov, [facility] [address] [id number] [place] [address] Nov, [facility] [address] [id number] [place] [address] Nov, [facility] [address] [id number] [place] [address] Nov, [facility] [address] [id number] [place] [address] Nov, [facility] [address] [id number] [place] [address] Nov, [facility] [address] [id number] [place] [address] Nov, [facility] [address] [id number] [place] [address] Nov, [facility] [address] [id number] [place] [address] Nov, [facility] [address] [id number] [place] [address] Oct, [facility] [address] [id number] [place] [address] Oct, [facility] [address] [id number] [place] [address] Oct, [facility] [address] [id number] [place] [address] Oct, 2014 [facility] [address] [id number] [place] [address] Oct, [facility] [address] [id number] [place] [address] Oct, [facility] [address] [id number] [place] [address] Oct, [facility] [address] [id number] [place] [address] Oct, 2014 [facility] [address] [id number] [place] [address] Oct, [facility] [address] [id number] [place] [address] Sep, [facility] [address] [id number] [place] [address] Sep, [facility] [address] [id number] [place] [address] Sep, [facility] [address] [id number] [place] [address] Sep, [facility] [address] [id number] [place] [address] Sep, [facility] [address] [id number] [place] [address] Sep, [facility] [address] [id number] [place] [address] Sep, [facility] [address] [id number] [place] [address] Sep, [facility] [address] [id number] [place] [address] Sep, [facility] [address] [id number] [place] [address] Sep, [facility] [address] [id number] [place] [address] Sep, [facility] [address] [id number] [place] [address] 08 Sep, 2014 [facility] [address] [id number] [place] [address] Sep, [facility] [address] [id number] [place] [address] Sep, [facility] [address] [id number] [place] [address] Sep, [facility] [address] [id number] [place] [address] Sep, [facility] [address] [id number] [place] [address] Aug, [facility] [address] [id number] [place] [address] Aug, [facility] [address] [id number] [place] [address] Aug, [facility] [address] [id number] [place] [address] 31 Aug, 2014 [facility] [address] [id number] [place] [address] Aug, [facility] [address] [id number] [place] [address] 31 Aug, 2014 [facility] [address] [id number] [place] [address] 17 Aug, 2014 [facility] [address] [id number] [place] [address] Aug, [facility] [address] [facility] [id number] [place] [address] Aug, [facility] [address] [facility] [id number] [place] [address] Aug, [facility] [address] [id number] [place] [address] Aug, [facility] [address] [facility] [id number] Aug, [facility] [address] [facility] [id number] [place] [address] Aug, [facility] [address] [id number] [place] [address] Aug, [facility] [address] [id number] [place] [address] Aug, [facility] [address] [id number] [place] [address] Aug, [facility] [address] [id number] [place] [address] Aug, [facility] [address] [id number] [place] [address] Aug, [facility] [address] [id number] [place] [address] Aug, [facility] [address] [id number] [place] [address] Aug, [facility] [address] [facility] [id number] [place] [address] Aug, [facility] [address] [id number] [place] [address] Aug, [facility] [address] [id number] [place] [address] Aug, [facility] [address] [id number] [place] [address] Aug, [facility] [address] [id number] [place] [address] Aug, [facility] [address] [id number] [place] [address] Aug, [facility] [address] [id number] [place] [address] Aug, [facility] [address] [id number] [place] [address] Aug, [facility] [address] [id number] [place] [address] Aug, [facility] [address] [id number] [place] [address] Aug, [facility] [address] [id number] [place] [address] Jul, [facility] [address] [id number] [place] [address] Jul, [facility] [address] [id number] [place] [address] Jul, [facility] [address] [id number] [place] [address] Jul, [facility] [address] [id number] [place] [address] Jul, [facility] [address] [id number] [place] [address] Jul, [facility] [address] [id number] [place] [address] Jul, [facility] [address] [id number] [place] [address] Jul, [facility] [id number] [place] [address] Jul, [facility] [address] [id number] [place] [address] Jul, [facility] [address] [id number] [place] [address] Jun, [facility] [address] [id number] [place] [address] Jun, [facility] [address] [id number] [place] [address] Jun, [facility] [address] [id number] [place] [address] 16 Jun, 2014 [facility] [address] [id number] [place] [address] Jun, [facility] [address] [id number] [place] [address] Jun, [facility] [address] [id number] [place] [address] Jun, [facility] [address] [id number] [place] [address] Jun, [facility] [address] [id number] [place] [address] Jun, [facility] [address] [id number] [place] [address] Jun, [facility] [address] [id number] [place] [address] 29 Sep, 2013 [facility] [address] [id number] [place] [address] 29 Sep, 2013 [facility] [address] [id number] [place] [address] 26 Sep, 2013 [facility] [address] [id number] [place] [address] 26 Sep, 2013 [facility] [address] [id number] [place] [address] 17 Sep, 2013 [facility] [address] [id number] [place] [address] 17 Sep, 2013 [facility] [address] [id number] [place] [address] 15 Sep, 2013 [facility] [address] [id number] [place] [address] 15 May, 2013 [facility] [address] [id number] [facility] [place] [address] 15 May, 2013 [facility] [address] [facility] [id number] [facility] [address] 15 May, 2013 [facility] [address] [facility] [id number] [facility] [address] 10 May, 2013 [facility] [address] [id number] [facility] [place] [address] 10 May, 2013 [facility] [address] [facility] [id number] [facility] [address] 09 May, 2013 [facility] [address] [id number] [facility] [place] [address] May, 2013 [facility] [address] [id number] [place] [address] May, 2013 [facility] [address] [id number] [facility] [place] [address] May, 2013 [facility] [address] [facility] [id number] [facility] [place] [address] Apr, [facility] [address] [id number] [facility] [place] [address] Apr, [facility] [address] [facility] [id number] [place] [address] Apr, [facility] [address] [id number] [place] [address] Apr, 2013 [facility] [address] [facility] [id number] [facility] [address] Apr, 2013 [facility] [address] [id number] [place] [address] Apr, [facility] [address] [facility] [place] [id number] [place] [address] Apr, 2013 [facility] [place] [facility] [address] [id number] [place] [address] Apr, 2013 [facility] [place] [facility] [address] [id number] [place] [address] Apr, [facility] [place] [facility] [address] [id number] [facility] [address] Apr, [facility] [place] [facility] [address] [facility] [id number] [place] [address] Apr, [facility] [place] [facility] [address] [id number] [place] [address] Apr, [facility] [place] [facility] [address] [facility] [id number] [place] [address] Apr, [facility] [place] [facility] [address] [id number] [place] [address] Apr, [facility] [place] [facility] [address] [id number] [place] [address] Apr, [facility] [place] [facility] [address] [id number] [place] [address] Mar, [facility] [place] [facility] [address] [id number] [place] [address] Mar, [facility] [place] [facility] [address] [id number] [place] [address] Mar, [facility] [place] [facility] [address] [id number] [place] [address] Mar, [facility] [place] [facility] [address] [id number] [place] [address] Mar, [facility] [place] [facility] [address] [id number] [place] [address] Mar, [facility] [place] [facility] [address] [facility] [id number] [place] [address] Mar, [facility] [place] [facility] [address] [id number] [place] [address] Mar, [facility] [place] [facility] [address] [id number] [place] [address] Mar, [facility] [place] [facility] [address] [id number] [place] [address] Mar, [facility] [place] [facility] [address] [id number] [place] [address] Mar, 2013 [facility] [place] [facility] [address] [facility] [id number] [place] [address] Mar, 2013 [facility] [place] [facility] [address] [facility] [id number] [place] [address] Mar, 2013 [facility] [place] [facility] [address] [id number] [place] [address] Mar, 2013 [facility] [place] [facility] [address] [facility] [id number] [place] [address] Mar, 2013 [facility] [place] [facility] [address] [id number] [place] [address] Mar, 2013 [facility] [place] [facility] [address] [id number] [place] [address] Mar, 2013 [facility] [place] [facility] [address] [id number] [place] [address] Mar, 2013 [facility] [place] [facility] [address] [id number] [place] [address] Feb, [facility] [place] [facility] [address] [id number] [place] [address] Feb, [facility] [place] [facility] [address] [id number] [place] [address] Feb, [facility] [place] [facility] [address] [id number] [place] [address] Feb, [facility] [place] [facility] [address] [id number] [place] [address] Feb, [facility] [place] [facility] [address] [facility] [id number] [place] [address] Feb, [facility] [place] [facility] [address] [id number] [place] [address] Feb, [facility] [place] [facility] [address] [id number] [place] [address] Feb, [facility] [place] [facility] [address] [id number] [place] [address] Feb, [facility] [place] [facility] [address] [facility] [id number] [place] [address] Feb, [facility] [place] [facility] [address] [facility] [id number] [facility] [place] [address] Feb, [facility] [place] [facility] [address] [id number] [place] [address] Feb, [facility] [place] [facility] [address] [id number] [place] [address] Feb, [facility] [place] [facility] [address] [facility] [id number] [facility] [place] [address] Feb, [facility] [place] [facility] [address] [id number] [place] [address] January, [facility] [place] [facility] [address] [id number] [place] [address] January, [facility] [place] [facility] [address] [id number] [facility] [place] [address] January, [facility] [place] [facility] [address] [facility] [id number] [place] [address] January, [facility] [place] [facility] [address] [id number] [place] [address] January, [facility] [place] [facility] [address] [id number] [place] [address] January, [facility] [place] [facility] [address] [id number] [place] [address] January, [facility] [place] [facility] [address] [facility] [id number] [place] [address] January, [facility] [place] [facility] [address] [id number] [place] [address] January, [facility] [place] [facility] [address] [id number] [place] [address] January, [facility] [place] [facility] [address] [id number] [place] [address] January, [facility] [place] [facility] [address] [id number] [place] [address] January, [facility] [place] [facility] [address] [id number] [place] [address] January, [facility] [place] [facility] [address] [id number] [place] [address] January, [facility] [place] [facility] [address] [id number] [place] [address] Dec, [facility] [place] [facility] [address] [facility] [id number] [place] [address] Dec, [facility] [place] [facility] [address] [id number] [place] [address] Dec, [facility] [place] [facility] [address] [id number] [place] [address] Dec, [facility] [place] [facility] [address] [id number] [place] [address] Dec, [facility] [place] [facility] [address] [id number] [place] [address] Dec, [facility] [place] [facility] [address] [id number] [place] [address] Dec, [facility] [place] [facility] [address] [id number] [place] [address] Dec, [facility] [place] [facility] [address] [id number] [place] [address] Dec, [facility] [place] [facility] [address] [id number] [place] [address] Dec, [facility] [place] [facility] [address] [id number] [place] [address] Nov, [facility] [place] [facility] [address] [id number] [place] [address] Nov, [facility] [place] [facility] [address] [id number] [place] [address] Nov, [facility] [place] [facility] [address] [id number] [place] [address] Nov, [facility] [place] [facility] [address] [facility] [id number] [place] [address] 08 Nov, 2013 [facility] [place] [facility] [address] [id number] [place] [address] Nov, [facility] [place] [facility] [address] [id number] [place] [address] Nov, [facility] [place] [facility] [address] [id number] [place] [address] Nov, [facility] [place] [facility] [address] [id number] [place] [address] Nov, [facility] [place] [facility] [address] [id number] [place] [address] Nov, [facility] [place] [facility] [address] [id number] [place] [address] Oct, [facility] [place] [facility] [address] [id number] [place] [address] Oct, [facility] [place] [facility] [address] [id number] [place] [address] Oct, [facility] [place] [facility] [address] [id number] [place] [address] Oct, [facility] [place] [facility] [address] [id number] [place] [address] Oct, [facility] [place] [facility] [address] [id number] [place] [address] Oct, [facility] [place] [facility] [address] [id number] [place] [address] 14 Oct, 2013 [facility] [place] [facility] [address] [id number] [place] [address] Oct, [facility] [place] [facility] [address] [id number] [place] [address] 05 Oct, 2013 [facility] [place] [facility] [address] [id number] [place] [address] 05 Oct, 2013 [facility] [place] [facility] [address] [id number] [place] [address] 04 Oct, 2013 [facility] [place] [facility] [address] [id number] [place] [address] Oct, [facility] [place] [facility] [address] [id number] [place] [address] Oct, [facility] [place] [facility] [address] [id number] [place] [address] Oct, [facility] [place] [facility] [address] [id number] [place] [address] Sep, [facility] [place] [facility] [address] [id number] [place] [address] Sep, [facility] [place] [facility] [address] [id number] [place] [address] 15 Sep, 2013 [facility] [place] [facility] [address] [id number] [place] [address] 15 Sep, 2013 [facility] [place] [facility] [address] [id number] [place] [address] 14 Sep, 2013 [facility] [place] [facility] [address] [id number] [place] [address] Sep, [facility] [place] [facility] [address] [id number] [place] [address] Sep, [facility] [place] [facility] [address] [id number] [place] [address] 14 Sep, 2013 [facility] [place] [facility] [address] [id number] [place] [address] 08 Sep, 2013 [facility] [place] [facility] [address] [id number] [place] [address] 08 Sep, 2013 [facility] [place] [facility] [address] [id number] [place] [address] Aug, [facility] [place] [facility] [address] [id number] [place] [address] Aug, [facility] [place] [facility] [address] [id number] [place] [address] Jul, [facility] [place] [facility] [address] [id number] [place] [address] Jul, [facility] [place] [facility] [address] [id number] [place] [address] Jul, [facility] [place] [facility] [address] [id number] [place] [address] Jul, [facility] [place] [facility] [address] [id number] [place] [address] Jul, [facility] [place] [facility] [address] [id number] [place] [address] Jul, [facility] [place] [facility] [address] [id number] [place] [address] Jul, [facility] [place] [facility] [address] [id number] [place] [address] Jul, [facility] [place] [facility] [address] [id number] [place] [address] Jul, [facility] [place] [facility] [address] [id number] [place] [address] Jul, [facility] [place] [facility] [address] [id number] [place] [address] Jul, [facility] [place] [facility] [address] [id number] [place] [address] Jul, [facility] [place] [facility] [address] [id number] [place] [address] Jul, [facility] [place] [facility] [address] [id number] [place] [address] Jul, [facility] [place] [facility] [address] [id number] [place] [address] Jul, [facility] [place] [facility] [address] [id number] [place] [address] Jul, [facility] [place] [facility] [address] [id number] [place] [address] Jul, [facility] [place] [facility] [address] [id number] [place] [address] Jul, 2012 [facility] [place] [facility] [address] [id number] [place] [address] Jul, 2012 [facility] [place] [facility] [address] [id number] [place] [address] Jun, 2012 [facility] [place] [facility] [address] [id number] [place] [address] Jun, 2012 [facility] [place] [facility] [address] [id number] [place] [address] Jun, 2012 [facility] [place] [facility] [address] [id number] [place] [address] Jun, 2012 [facility] [place] [facility] [address] [id number] [place] [address] Jun, 2012 [facility] [place] [facility] [address] [id number] [place] [address] Jun, 2012 [facility] [place] [facility] [address] [id number] [place] [address] Jun, 2012 [facility] [place] [facility] [address] [id number] [place] [address] Jun, [facility] [place] [facility] [address] [id number] [place] [address] Jun, [facility] [place] [facility] [address] [id number] [place] [address] Jun, [facility] [place] [facility] [address] [id number] [place] [address] Jun, 2012 [facility] [place] [facility] [address] [id number] [place] [address] 26 May, 2012 [facility] [place] [facility] [address] [id number] [place] [address] 25 Sep, 2012 [facility] [place] [facility] [address] [id number] [place] [address] 19 Sep, 2012 [facility] [place] [facility] [address] [id number] [place] [address] 17 Sep, 2012 [facility] [place] [facility] [address] [id number] [facility] [place] [address] 11 May, 2012 [facility] [place] [facility] [address] [id number] [facility] [place] [address] May, 2012 [facility] [place] [facility] [address] [facility] [id number] [facility] [place] [address] May, [facility] [place] [facility] [address] [id number] [place] [address] May, [facility] [place] [facility] [address] [facility] [id number] [facility] [place] [address] Apr, [facility] [place] [facility] [address] [facility] [id number] [facility] [place] [address] Apr, [facility] [place] [facility] [address] [id number] [place] [address] Apr, [facility] [place] [facility] [address] [id number] [place] [address] Apr, [facility] [place] [facility] [address] [id number] [place] [address] Apr, [facility] [place] [facility] [address] [id number] [place] [address] Mar, [facility] [place] [facility] [address] [id number] [place] [address] Mar, [facility] [place] [facility] [address] [id number] [place] [address] Mar, [facility] [place] [facility] [address] [id number] [place] [address] Mar, [facility] [place] [facility] [address] [facility] [id number] [place] [address] Mar, [facility] [place] [facility] [address] [id number] [place] [address] Mar, [facility] [place] [facility] [address] [id number] [place] [address] Mar, [facility] [place] [facility] [address] [id number] [place] [address] Mar, [facility] [address] [id number] [place] [address] Feb, [facility] [address] [id number] [place] [address] Feb, [facility] [place] [facility] [address] [id number] [place] [address] January, [facility] [address] [id number] [place] [address] January, [facility] [place] [facility] [address] [id number] [place] [address] Dec, [facility] [address] [id number] [place] [address] Dec, [facility] [place] [facility] [address] [id number] [place] [address] Nov, [facility] [address] [id number] [place] [address] Nov, [facility] [place] [facility] [address] [id number] [place] [address] Nov, [facility] [place] [facility] [address] [id number] [place] [address] Nov, [facility] [place] [facility] [address] [id number] [place] [address] Oct, [facility] [place] [facility] [address] [id number] [place] [address] Oct, [facility] [place] [facility] [address] [id number] [place] [address] Oct, [facility] [place] [facility] [address] [id number] [place] [address] Oct, [facility] [place] [facility] [address] [id number] [place] [address] 16 Oct, 2012 [facility] [place] [facility] [address] [id number] [place] [address] 14 Oct, 2012 [facility] [place] [facility] [address] [id number] [place] [address] 08 Oct, 2012 [facility] [place] [facility] [address] [id number] [place] [address] 07 Oct, 2012 [facility] [place] [facility] [address] [id number] [place] [address] Oct, [facility] [place] [facility] [address] [id number] [place] [address] Sep, [facility] [place] [facility] [address] [id number] [place] [address] Sep, [facility] [place] [facility] [address] [id number] [place] [address] Sep, [facility] [place] [facility] [address] [id number] [place] [address] Sep, [facility] [place] [facility] [address] [id number] [place] [address] Sep, [facility] [place] [facility] [address] [id number] [place] [address] Sep, [facility] [place] [facility] [address] [id number] [place] [address] Sep, [facility] [place] [facility] [address] [id number] [place] [address] Sep, [facility] [place] [facility] [address] [id number] [place] [address] Aug, [facility] [place] [facility] [address] [id number] [place] [address] Aug, [facility] [place] [facility] [address] [id number] [place] [address] Aug, [facility] [place] [facility] [address] [id number] [place] [address] Aug, [facility] [place] [facility] [address] [id number] [place] [address] Aug, [facility] [place] [facility] [address] [id number] [place] [address] Aug, [facility] [place] [facility] [address] [id number] [place] [address] Aug, [facility] [place] [facility] [address] [id number] [place] [address] Aug, [facility] [place] [facility] [address] [id number] [place] [address] Jul, [facility] [place] [facility] [address] [id number] [place] [address] Jul, [facility] [address] [id number] [place] [address] Jul, [facility] [address] [id number] [place] [address] Jul, [facility] [address] [id number] [place] [address] Jul, [facility] [id number] [place] [address] Jul, [facility] [address] [id number] [place] [address] Jun, [facility] [address] [id number] [place] [address] Jun, [facility] [address] [id number] [place] [address] Jun, [facility] [address] [id number] [place] [address] Jun, [facility] [address] [id number] [place] [address] Jun, [facility] [address] [id number] [place] [address] Jun, [facility] [address] [id number] [place] [address] Jun, [facility] [address] [id number] [place] [address] Jun, [facility] [address] [id number] [place] [address] Jun, [facility] [address] [facility] [id number] [place] [address] 26 May, 2012 [facility] [address] [id number] [place] [address] 24 May, 2012 [facility] [address] [id number] [place] [address] May, [facility] [address] [id number] [place] [address] Apr, [facility] [address] [id number] [place] [address] Apr, [facility] [address] [id number] [place] [address] Apr, [facility] [address] [id number] [place] [address] Apr, [facility] [address] [id number] [place] [address] Apr, [facility] [address] [id number] [place] [address] Apr, [facility] [address] [id number] [place] [address] Mar, [facility] [address] [id number] [place] [address] Mar, [facility] [address] [id number] [place] [address] Mar, [facility] [address] [id number] [place] [address] Mar, [facility] [address] [id number] [place] [address] Feb, [facility] [address] [id number] [place] [address] Feb, [facility] [address] [id number] [place] [address] Feb, [facility] [address] [id number] [place] [address] Feb, [facility] [address] [id number] [place] [address] Feb, [facility] [address] [id number] [place] [address] January, [facility] [address] [id number] [place] [address] January, [facility] [address] [id number] [place] [address] January, [facility] [address] [id number] [place] [address] January, [facility] [address] [id number] [place] [address] January, [facility] [address] [id number] [place] [address] January, [facility] [address] [id number] [place] [address] Dec, [facility] [address] [id number] [place] [address] Dec, [facility] [address] [id number] [place] [address] Dec, [facility] [address] [id number] [place] [address] Dec, [facility] [address] [id number] [place] [address] Dec, [facility] [address] [id number] [place] [address] Nov, [facility] [address] [id number] [place] [address] 14 Nov, 2011 [facility] [address] [id number] [place] [address] Nov, [facility] [address] [id number] [place] [address] Nov, [facility] [address] [id number] [place] [address] 29 Oct, 2011 [facility] [address] [id number] [place] [address] Oct, [facility] [address] [id number] [place] [address] Oct, [facility] [address] [id number] [place] [address] Oct, [facility] [address] [id number] [place] [address] 08 Oct, 2011 [facility] [address] [id number] [place] [address] Sep, [facility] [address] [id number] [place] [address] Sep, [facility] [id number] [place] [address] Sep, [facility] [address] [id number] [place] [address] Sep, [facility] [id number] [place] [address] Sep, [facility] [address] [id number] [place] [address] Sep, [facility] [id number] [place] [address] Aug, [facility] [address] [id number] [place] [address] Aug, [facility] [address] [id number] [place] [address] Aug, [facility] [address] [id number] [place] [address] Jul, [facility] [address] [id number] [place] [address] Jul, [facility] [address] [id number] [place] [address] 10 Jul, 2011 [facility] [address] [id number] [place] [address] Jul, [facility] [address] [id number] [place] [address] Jun, [facility] [address] [id number] [place] [address] Jun, [facility] [address] [id number] [place] [address] Jun, [facility] [address] [id number] [place] [address] Jun, [facility] [address] [id number] [place] [address] Jun, [facility] [address] [id number] [place] [address] Jun, [facility] [address] [id number] [place] [address] Mar, [facility] [address] [id number] [place] [address] Dec, [facility] [address] [id number] [place] [address] Dec, [facility] [address] [id number] [place] [address] Nov, [facility] [address] [id number] [place] [place] [address] 16 Nov, 2010 [facility] [address] [id number] [place] [address] Sep, [facility] [address] [id number] [place] [address] Aug, [facility] [address] [id number] [place] [address] Aug, [facility] [address] [id number] [place] [address] Aug, [facility] [address] [id number] [place] [address] 29 Aug, 2010 [facility] [address] [id number] [place] [address] 27 Aug, 2010 [facility] [address] [id number] [place] [address] 14 Aug, 2010 [facility] [address] [id number] [place] [address] 08 Aug, 2010 [facility] [address] [id number] [place] [address] 08 Aug, 2010 [facility] [address] [id number] [place] [address] 07 Aug, 2010 [facility] [address] [id number] [place] [address] 06 Aug, 2010 [facility] [address] [id number] [place] [address] Aug, [facility] [address] [id number] [place] [address] Aug, [facility] [address] [id number] [place] [address] Jul, [facility] [address] [id number] [place] [address] Jul, [facility] [address] [id number] [place] [address] 30 Jul, 2010 [facility] [address] [id number] [place] [address] 17 Jul, 2010 [facility] [address] [id number] [place] [address] Jul, [facility] [id number] [place] [address] Jul, [facility] [address] [id number] [place] [address] 24 Jun, 2010 [facility] [address] [id number] [place] [address] 19 Jun, 2010 [facility] [address] [facility] [id number] [place] [address] 19 Jun, 2010 [facility] [address] [id number] [place] [address] 13 Jun, 2010 [facility] [address] [id number] [place] [address] 16 Apr, 2010 [facility] [address] [id number] [place] [address] Mar, [facility] [address] [facility] [id number] [place] [address] Feb, [facility] [address] [id number] [place] [address] January, [facility] [address] [id number] [place] [address] 15 Dec, 2009 [facility] [address] [id number] [place] [address] Nov, [facility] [address] [id number] [place] [address] Aug, [facility] [address] [id number] [place] [address] Aug, [facility] [address] [id number] [place] [address] Aug, [facility] [address] [id number] [place] [address] Jul, [facility] [address] [id number] [place] [address] Jul, [facility] [address] [id number] [place] [address] Jul, [facility] [address] [id number] [place] [address] 30 Jun, 2009 [facility] [address] [id number] [place] [address] 29 Jun, 2009 [facility] [id number] [place] [address] Jun, [facility] [id number] [place] [address] Jun, [facility] [id number] [place] [address] Jun, [facility] [address] [address] Jun, [facility] [address] [address] Apr, [facility] [address] [address] Apr, [facility] [address] [address] Feb, [facility] [address] [address] January, [facility] [address] [address] Dec, IMMUNIZATIONS No Known Immunizations SOCIAL HISTORY [...] History skin cancer-basal cell R jehovah's witness (removed ) Medical History Arthritis Medical History [...] History inability to urinate 09/16/15 Hospitalization History [facility] inpatient mental health ea rly 1999's Hospitalization History hyperkalemia 10/2017 Hospitalization History fluid in lung
[2020-03-01] MEDS ORDERED: meTOprolol 5 MG/5 ML (LOPRESSOR) VIAL IV ONE (16:45)
[2020-03-01] MEDS ORDERED: ASPIRIN 81 MG CHEW (CHILDREN'S ASA) PO ONE (16:45)
[2020-03-01] MEDS ORDERED: NITROGLYCERIN 0.4 MG SL TABS BTL 25'S SL PRN ×2 (16:45→20:15)
--- OUTSIDE RECORDS SUMMARY | 2020-03-01 16:45 | XMS REPORT ---
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 Name Role Phone NOEMI WASHBURN Unavailable PROBLEMS Type Condition ICD9-CM Code LUP62-DN Code Onset Dates Condition S tatus SNOMED Code Problem DM neuro manif type II E11.49 Active 93849529 Problem Chronic pain G89.29 Active 6139696 1 Problem Diabetes E11.9 Active 23339558 Problem Reactive airway disease J45.909 Active 822411244660 Problem Leukocytosis D72.829 Active 1233505 06 Problem Insomnia, unspecified type G47.00 Act sharon 085121221 Problem Bipolar I disorder, most recent episode (or curr ent) mixed, moderate F31.62 Active 04218907 Problem Primary osteoarthritis of right knee M17.11 Active 542944035932412 Problem Cough R05 Active 61801217 Problem Pure hypercholesterolemia E78.00 Acti ve 717297150 Problem Dysuria R30.0 Active 77618144 Problem Benign prostatic hyperplasia with lower urinary tract symptoms, unspecified morphology N40.1 Active 93994 6007 Problem Eustachian tube dysfunction, unspecified laterality H69.80 Active 55269858 Problem Polyneuropathy associated with underlying disease G63 Active 262893948 Problem Diabetic polyneuropathy associated with type 2 d iabetes mellitus E11.42 Active 35602886 Problem Anemia of chronic illness D63.8 Acti ve 063979909 Problem Chronic lymphocytic leukemia C91.10 A ctive 34440952 Problem Bilateral primary osteoarthritis of knee M17.0 Active 258508604 Problem 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 Active 483871187 Problem Eye exam abnormal R93.8 Active 16 3541413 Problem Retinal edema H35.81 Active 584720 6 Problem Lymphocytosis D72.820 Active 324174 09 Problem Bipolar disorder, in partial remission, most rec ent episode depressed F31.75 Active 49694316 Problem Hypokalemia E87.6 Active 45466479 Problem Falling R29.6 Active 500991572 Problem Pressure ulcer of other site, stage 3 L89.893 Active 915330336 Problem Other iron deficiency anemia D50.8 A ctive 45088237 Problem Mild cognitive impairment G31.84 Acti ve 577138714 Problem Skin cancer C44.90 Active 91378175 7 Problem residential (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 Z79.4 Active 968529489 Problem Morbid obesity E66.01 Active 93533 6002 Problem Mood disorder F39 Active 243325 05 Problem Anxiety F41.9 Active 50850268 Problem Essential hypertension I10 Active 54864258 Problem Bipolar disorder F31.9 Active 137 77495 Problem Chronic diastolic (congestive) heart failure I50.3 2 Active 509718651 Problem Psychophysiological insomnia F51.04 A ctive 259404372 Problem Type 2 diabetes mellitus with diabetic neuropathy, uns pecified E11.40 Active 77894086 ALLERGIES No Information ENCOUNTERS Encounter Location Date Diagnosis [place] [address] [address] Dec, [place] [address] [address] Dec, [place] [address] [address] Nov, [place] [address] [address] Nov, [place] [address] [address] Nov, Encounter for Medicare annual wellness e xam Z00.00 [place] [address] [address] Nov, Mood disorder F39 [place] [address] [address] Oct, Chronic pain G89.29 [place] [address] [address] Oct, [place] [address] [address] Oct, 2019 Mood disorder F39 [facility] [address] [id number] [place] [address] Oct, [facility] [address] [id number] [place] [address] Oct, Bipolar disorder, in partial remission, most recent episode depressed F31.75 and Mild cognitive impairment G31.84 [facility] [address] [facility] [place] [address] 04 Oct, 2019 Mood disorder F39 [facility] [address] [id number] [place] [address] Sep, [facility] [address] [id number] [place] [address] Sep, Mood disorder F39 [facility] [address] [place] [id number] [place] [address] Sep, Bipolar disorder, in partial remission, most recent episode depressed F31.75 and Mild cognitive impairment G31.84 [facility] [address] [id number] [place] [address] Sep, Mood disorder F39 [facility] [address] [id number] [place] [address] Sep, [facility] [address] [id number] [place] [address] Sep, Mood disorder F39 [facility] [address] [facility] [place] [address] Sep, [facility] [address] [id number] [place] [address] Aug, Mood disorder F39 [facility] [address] [facility] [place] [address] Aug, [facility] [address] [id number] [place] [address] Aug, [facility] [address] [id number] [place] [address] Aug, [facility] [address] [place] [id number] [place] [address] Aug, [facility] [address] [place] [id number] [place] [address] Aug, [facility] [address] [place] [id number] [place] [address] Aug, [facility] [address] [address] Aug, [facility] [address] [address] Aug, Essential hypertension I10 [facility] [address] [address] Aug, Bipolar disorder, in partial remission, most recent episode depressed F31.75 and Mild cognitive impairment G31.84 [facility] [address] [address] Aug, Mood disorder F39 [facility] [address] [address] Aug, [facility] [address] [address] Aug, Bipolar disorder, in partial remission, most recent episode depressed F31.75 and Mild cognitive impairment G31.84 [facility] [address] [address] Jul, Bipolar disorder, in partial remission, most recent episode depressed F31.75 and Mild cognitive impairment G31.84 [facility] [address] [address] Jul, Psychophysiological insomnia F51.04 [facility] [address] [address] Jul, [facility] [address] [address] Jul, [facility] [address] [address] Jul, [facility] [address] [place] [id number] [place] [address] Jul, [facility] [address] [place] [id number] [place] [address] Jul, [facility] [address] [place] [id number] [place] [address] Jul, [facility] [address] [address] Jul, Bipolar disorder, in partial remission, most recent episode depressed F31.75 and Mild cognitive impairment G31.84 [place] [address] [address] Jul, Chronic pain G89.29 ; Diabetes E11.9 ; E ssential hypertension I10 ; Ill feeling R68.89 ; Local infection of the skin and subcutaneous tissue, unspecified L08.9 and Other injury of unspecified body region, initial encounter T14.8XXA [place] [address] [place] [id number] [place] [address] Jun, Bipolar disorder, in partial remission, most recent episode depressed F31.75 and Mild cognitive impairment G31.84 [place] [address] [place] [id number] [place] [address] Jun, [place] [address] [address] Jun, Bipolar disorder, in partial remission, most recent episode depressed F31.75 and Mild cognitive impairment G31.84 [place] [address] [place] [id number] [place] [address] Jun, Psychophysiological insomnia F51.04 [place] [address] [address] Jun, Psychophysiological insomnia F51.04 ; Ch ronic pain G89.29 ; Bipolar I disorder, most recent episode (or current) mixed, moderate F31.62 ; 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 ; Polyneuropathy associated with underlying disease G63 ; Type 2 diabetes mellitus with diabetic neuropathy, unspecified E11.40 ; 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 and Hyperglycemia R73.9 [place] [address] [address] Jun, Bipolar disorder, in partial remission, most recent episode depressed F31.75 and Mild cognitive impairment G31.84 [place] [address] [address] Jun, [place] [address] [place] [address] Jun, Bipolar disorder F31.[address] [address] May, Bipolar disorder, in partial remission, most recent episode depressed F31.75 and Mild cognitive impairment G31.[address] [address] May, [place] [address] [address] Apr, Chronic pain G89.29 and Bipolar disorder F31.[address] [address] Mar, Bipolar disorder F31.9 and Chronic pain G89.29 [place] [address] [address] Feb, Bipolar disorder F31.9 [place] [address] [address] Feb, Cellulitis of right upper extremity L03. 113 and Skin abrasion T14.8XXA [address] [address] Feb, Bipolar disorder, in partial remission, most recent episode depressed F31.75 and Mild cognitive impairment G31.84 [place] [address] [address] Feb, Chronic pain G89.29 [place] [address] [address] Feb, Bipolar disorder, in partial remission, most recent episode depressed F31.75 and Mild cognitive impairment G31.84 [facility] [address] [address] January, Bipolar disorder, in partial remission, most recent episode depressed F31.75 and Mild cognitive impairment G31.84 [facility] [address] [address] January, Chronic pain G89.29 and Bipolar disorder F31.9 [facility] [address] [address] January, Bipolar disorder, in partial remission, most recent episode depressed F31.75 and Mild cognitive impairment G31.84 [facility] [address] [address] Dec, [facility] [address] [address] Dec, Chronic pain G89.29 and Bipolar disorder F31.9 [facility] [address] [address] Dec, Edema of both lower extremities R60.0 [facility] [address] [address] Dec, Bipolar disorder F31.9 [facility] [address] [address] Dec, Bipolar disorder, in partial remission, most recent episode depressed F31.75 and Mild cognitive impairment G31.84 [facility] [address] [address] Nov, [facility] [address] [address] Nov, Chronic pain G89.29 [facility] [address] [address] Nov, Bipolar disorder, in partial remission, most recent episode depressed F31.75 and Mild cognitive impairment G31.84 [place] [address] [address] Nov, Bipolar disorder F31.9 [place] [address] [address] 04 Nov, 2018 Encounter for Medicare annual [...] unspecified morphology N40.1 and Essential hypertension I10 [place] [address] [address] Oct, Chronic pain G89.29 [place] [address] [address] 18 Oct, 2018 Diabetes E11.9 [place] [address] [address] Oct, Bipolar I disorder, most recent episode (or current) mixed, moderate F31.62 and Mild cognitive impairment G31.84 [place] [address] [address] Oct, Bipolar I disorder, most recent episode (or current) mixed, moderate F31.62 and Mild cognitive impairment G31.84 [place] [address] [address] Sep, Bipolar I disorder, most recent episode (or current) mixed, moderate F31.62 and Mild cognitive impairment G31.84 [place] [address] [address] Sep, [address] [address] Sep, Diabetes E11.9 ; Hypoxia R09.02 ; Hyperg lycemia R73.9 ; Therapeutic drug monitoring Z51.81 ; BMI 50.0-59.9, adult Z68.43 and Skin cancer C44.90 [place] [address] [address] Sep, Chronic pain G89.29 [place] [address] [address] Sep, Bipolar I disorder, most recent episode (or current) mixed, moderate F31.62 [place] [address] [address] Sep, [place] [address] [address] Sep, [place] [address] [address] Aug, Chronic pain G89.29 [place] [address] [address] Aug, Bipolar I disorder, most recent episode (or current) mixed, moderate F31.62 [place] [address] [address] Aug, Bipolar I disorder, most recent episode (or current) mixed, moderate F31.62 and Mild cognitive impairment G31.84 [place] [address] [address] Jul, [place] [address] [address] Jul, Chronic pain G89.29 [place] [address] [address] Jul, Bipolar I disorder, most recent episode (or current) mixed, moderate F31.62 and Mild cognitive impairment G31.84 [place] [address] [address] Jul, Bipolar I disorder, most recent episode (or current) mixed, moderate F31.62 and MCI (mild cognitive impairment) G31.84 [facility] [address] [place] [address] [place] [address] Jul, [facility] [address] [address] Jul, [facility] [address] [address] Jul, Bipolar I disorder, most recent episode (or current) mixed, moderate F31.62 [facility] [address] [place] [address] [place] [address] Jul, Chronic pain G89.29 [place] [address] [place] [address] Jun, Bipolar I disorder, most recent episode (or current) mixed, moderate F31.62 [place] [address] [place] [address] [place] [address] Jun, Pre-procedure lab exam Z01.812 [place] [address] [place] [address] [place] [address] Jun, [place] [address] [facility] [id number] Jun, [place] [address] [address] Jun, [place] [address] [address] Jun, Forgetfulness R68.89 ; Pre-syncope R55 ; Localized edema R60.0 ; Other iron deficiency anemia D50.8 and BMI 50.0-59.9, adult Z68.43 [place] [address] [address] Jun, Chronic pain G89.29 [facility] [address] [address] Jun, Chronic pain G89.29 [place] [address] [address] Jun, Bipolar I disorder, most recent episode (or current) mixed, moderate F31.62 [place] [address] [address] 07 May, 2018 Chronic pain G89.29 [place] [address] [address] Apr, [place] [address] [address] Apr, Chronic pain G89.29 [place] [address] [address] Apr, Primary osteoarthritis of right knee M17 .[address] [address] Mar, [address] [address] Mar, BMI 50.0-59.9, adult Z68.43 and Bipolar disorder, in partial remission, most recent episode depressed F31.[address] [address] Mar, Diabetes E11.9 ; Pure hypercholesterolem ia E78.00 ; Essential hypertension I10 ; Nausea with vomiting, unspecified R11.2 and Headache, unspecified headache type R51 [place] [address] [address] Mar, Bipolar I disorder, most recent episode (or current) mixed, moderate F31.62 [place] [address] [address] Mar, Bipolar I disorder, most recent episode (or current) mixed, moderate F31.62 [place] [address] [address] Mar, Chronic pain G89.29 [place] [address] [address] Mar, Bipolar I disorder, most recent episode (or current) mixed, moderate F31.62 [place] [address] [address] Feb, Bipolar I disorder, most recent episode (or current) mixed, moderate F31.62 [place] [address] [address] Feb, Chronic pain G89.29 [place] [address] [address] Feb, Decubitus ulcer of right foot, stage 3 L 89.893 and BMI 50.0-59.9, adult Z68.43 [place] [address] [address] Feb, Bipolar I disorder, most recent episode (or current) mixed, moderate F31.62 [place] [address] [address] Feb, [place] [address] [address] January, [place] [address] [address] January, Chronic pain G89.29 [place] [address] [address] January, Bipolar I disorder, most recent episode (or current) mixed, moderate F31.62 [place] [address] [address] January, Bipolar I disorder, most recent episode (or current) mixed, moderate F31.62 [place] [address] [address] Dec, Bipolar I disorder, most recent episode (or current) mixed, moderate F31.62 and BMI 50.0-59.9, adult Z68.43 [place] [address] [address] Dec, Bipolar I disorder, most recent episode (or current) mixed, moderate F31.62 [place] [address] [address] Dec, Chronic pain G89.29 [facility] [address] [address] Dec, DM neuro manif type II E11.49 ; Right fl ank pain R10.9 ; 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 ; Encounter for medication monitoring Z51.81 and BMI 50.0-59.9, adult Z68.43 [place] [address] [address] Dec, Bipolar I disorder, most recent episode (or current) mixed, moderate F31.62 [place] [address] [address] Nov, Bipolar I disorder, most recent episode (or current) mixed, moderate F31.62 [place] [address] [address] Nov, Chronic pain G89.29 [place] [address] [address] Nov, Bipolar I disorder, most recent episode (or current) mixed, moderate F31.62 [place] [address] [address] Nov, Hypokalemia E87.6 [place] [address] [address] Nov, Bipolar I disorder, most recent episode (or current) mixed, moderate F31.62 [place] [address] [address] Oct, Chronic pain G89.29 [place] [address] [address] Oct, BMI 50.0-59.9, adult Z68.43 and Bipolar I disorder, most recent episode (or current) mixed, moderate F31.62 [facility] [address] [address] Oct, Bipolar I disorder, most recent episode (or current) mixed, moderate F31.62 [facility] [address] [address] Oct, [place] [address] [address] Oct, Hypokalemia E87.6 [place] [address] [address] Oct, DM neuro manif type II E11.49 [place] [address] [address] Oct, Bipolar I disorder, most recent episode (or current) mixed, moderate F31.62 [place] [address] [address] Oct, Bipolar I disorder, most recent episode (or current) mixed, moderate F31.62 [place] [address] [address] 14 Oct, 2017 Hyperkalemia E87.5 ; Falling R29.6 ; BMI 50.0-59.9, adult Z68.43 and Acute left ankle pain M25.572 [place] [address] [address] Oct, DM neuro manif type II E11.49 [place] [address] [address] Oct, [place] [address] [address] Sep, Chronic pain G89.29 [place] [address] [address] Sep, [place] [address] [address] Sep, Bilateral primary osteoarthritis of knee M17.0 [place] [address] [address] 18 Sep, 2017 Generalized edema R60.1 [place] [address] [address] 16 Sep, 2017 Bipolar I disorder, most recent episode (or current) mixed, moderate F31.62 [place] [address] [address] 15 Sep, 2017 Hypoxia R09.02 ; Other hypervolemia E87. 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 ; Anemia of chronic illness D63.8 and BMI 50.0-59.9, adult Z68.43 [place] [address] [address] Sep, [place] [address] [address] Sep, Bipolar I disorder, most recent episode (or current) mixed, moderate F31.62 [place] [address] [address] 28 Aug, 2017 Chronic pain G89.29 [place] [address] [address] 27 Aug, 2017 Generalized edema R60.1 [place] [address] [address] 18 Aug, 2017 [place] [address] [address] 18 Aug, [address] [address] 14 Aug, 2017 Bipolar I disorder, most recent episode (or current) mixed, moderate F31.62 [place] [address] [address] 07 Aug, 2017 Bipolar I disorder, most recent episode (or current) mixed, moderate F31.62 [facility] [address] [address] Aug, Chronic pain G89.29 [facility] [address] [place] [address] Jul, Bipolar I disorder, most recent episode (or current) mixed, moderate F31.62 [place] [address] [address] Jul, Bipolar I disorder, most recent episode (or current) mixed, moderate F31.62 and BMI 60.0-69.9, adult Z68.44 [place] [address] [address] Jul, Bipolar I disorder, most recent episode (or current) mixed, moderate F31.62 [place] [address] [address] Jul, Chronic pain G89.29 [place] [address] [address] Jul, Bipolar I disorder, most recent episode (or current) mixed, moderate F31.62 [place] [address] [address] Jun, Polyneuropathy associated with underlyin g disease G63 and Diabetes E11.[address] [address] Jun, Bipolar I disorder, most recent episode (or current) mixed, moderate F31.62 [place] [address] [address] Jun, Chronic pain G89.29 [place] [address] [address] May, Bipolar I disorder, most recent episode (or current) mixed, moderate F31.62 [place] [address] [address] May, Bipolar I disorder, most recent episode (or current) mixed, moderate F31.62 [facility] [address] [address] 20 May, 2017 Diabetic polyneuropathy associated with type 2 diabetes mellitus E11.42 [facility] [address] [address] 18 May, 2017 Bipolar I disorder, most recent episode (or current) mixed, moderate F31.62 [facility] [address] [address] 13 May, 2017 Bipolar I disorder, most recent episode (or current) mixed, moderate F31.62 [facility] [address] [address] 12 May, 2017 Chronic pain G89.29 [facility] [address] [address] 30 Apr, 2017 Bipolar I disorder, most recent episode (or current) mixed, moderate F31.62 [facility] [address] [address] Apr, [facility] [address] [address] Apr, Chronic pain G89.29 and DM neuro manif t ype II E11.49 [facility] [address] [address] Apr, [facility] [address] [address] Apr, Bipolar I disorder, most recent episode (or current) mixed, moderate F31.62 [facility] [address] [address] 14 Apr, 2017 Chronic pain G89.29 [facility] [address] [address] Apr, Iliotibial band syndrome, left M76.32 [facility] [address] [address] Apr, Bipolar I disorder, most recent episode (or current) mixed, moderate F31.62 [facility] [address] [address] Mar, Bipolar I disorder, most recent episode (or current) mixed, moderate F31.62 [facility] [address] [address] Mar, Bipolar I disorder, most recent episode (or current) mixed, moderate F31.62 [facility] [address] [address] Mar, [facility] [address] [address] Mar, Bipolar I disorder, most recent episode (or current) mixed, moderate F31.62 [place] [address] [address] Mar, Chronic pain G89.29 [place] [address] [address] Mar, Bipolar I disorder, most recent episode (or current) mixed, moderate F31.62 [place] [address] [address] Mar, Bipolar I disorder, most recent episode (or current) mixed, moderate F31.62 [place] [address] [address] Mar, Acute pain of left knee M25.562 ; Left h ip pain M25.552 ; Generalized edema R60.1 and Tongue swelling R22.0 [facility] [address] [address] Mar, [facility] [address] [address] Feb, Chronic pain G89.29 [facility] [address] [address] Feb, Diabetes E11.9 [place] [address] [address] January, Chronic pain G89.29 [facility] [address] [address] January, [facility] [address] [place] [address] January, Bipolar I disorder, most recent episode (or current) mixed, moderate F31.62 [facility] [address] [address] Dec, Bipolar I disorder, most recent episode (or current) mixed, moderate F31.62 [place] [address] [address] Dec, Chronic pain G89.29 [facility] [address] [address] Dec, Bipolar I disorder, most recent episode (or current) mixed, moderate F31.62 [place] [address] [address] Dec, Diabetes E11.9 ; Essential hypertension I10 ; Chronic pain G89.29 and Morbid obesity E66.01 [facility] [address] [address] Dec, [place] [address] [address] Dec, Bipolar I disorder, most recent episode (or current) mixed, moderate F31.62 [place] [address] [address] Dec, Bipolar I disorder, most recent episode (or current) mixed, moderate F31.62 [place] [address] [address] Nov, Chronic pain G89.29 [facility] [address] [address] Nov, Bipolar I disorder, most recent episode (or current) mixed, moderate F31.62 [place] [address] [place] [address] [place] [address] Nov, [facility] [address] [address] Nov, Bipolar I disorder, most recent episode (or current) mixed, moderate F31.62 [facility] [address] [address] Nov, Bipolar I disorder, most recent episode (or current) mixed, moderate F31.62 [facility] [address] [address] Nov, [facility] [address] [address] Nov, [facility] [address] [address] Nov, [facility] [address] [address] Oct, Chronic pain G89.29 [facility] [address] [address] Oct, Bipolar I disorder, most recent episode (or current) mixed, moderate F31.62 [facility] [address] [address] Oct, [facility] [address] [address] Oct, Chronic pain G89.29 ; Diabetes E11.9 ; A nxiety F41.9 and 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 [facility] [address] [address] Oct, [facility] [address] [address] Oct, Diabetes E11.9 [facility] [address] [address] Oct, Bipolar I disorder, most recent episode (or current) mixed, moderate F31.62 [facility] [address] [address] Sep, Chronic pain G89.29 [facility] [address] [address] Sep, Chronic pain G89.29 [facility] [address] [address] Aug, Chronic pain G89.29 [facility] [address] [address] Jul, [facility] [address] [address] Jul, Diabetes E11.9 [facility] [address] [address] Jul, Chronic pain G89.29 [place] [address] [address] Jul, Bipolar I disorder, most recent episode (or current) mixed, moderate F31.62 [place] [address] [address] Jun, Bipolar I disorder, most recent episode (or current) mixed, moderate F31.62 [place] [address] [address] Jun, [place] [address] [address] Jun, Bipolar I disorder, most recent episode (or current) mixed, moderate F31.62 [place] [address] [address] May, Insomnia, unspecified type G47.00 [place] [address] [address] May, Bipolar I disorder, most recent episode (or current) mixed, moderate F31.62 [place] [address] [address] 14 May, 2016 [place] [address] [address] May, Bipolar I disorder, most recent episode (or current) mixed, moderate F31.62 [place] [address] [address] May, Diabetes E11.9 and Essential hypertensio n I10 [place] [address] [address] Apr, Chronic pain G89.29 [place] [address] [address] Apr, Bipolar I disorder, most recent episode (or current) mixed, moderate F31.62 [place] [address] [address] Apr, [place] [address] [address] Apr, [place] [address] [address] Mar, Chronic pain G89.29 ; Headache, unspecif ied headache type R51 ; Neuropathy G62.9 ; Pain of right hip joint M25.551 and Essential hypertension I10 [place] [address] [address] Mar, Chronic pain G89.29 [place] [address] [address] Mar, Bipolar I disorder, most recent episode (or current) mixed, moderate F31.62 [place] [address] [address] Feb, Bipolar I disorder, most recent episode (or current) mixed, moderate F31.62 and Insomnia, unspecified type G47.00 [place] [address] [address] Feb, Chronic pain G89.29 [place] [address] [address] Feb, Bipolar I disorder, most recent episode (or current) mixed, moderate F31.62 [facility] [address] [address] January, Bipolar I disorder, most recent episode (or current) mixed, moderate F31.62 [facility] [address] [address] January, Chronic pain G89.29 [facility] [address] [address] January, Chronic pain G89.29 and Essential hypert ension I10 [facility] [address] [address] January, Bipolar I disorder, most recent episode (or current) mixed, moderate F31.62 [facility] [address] [address] Dec, [facility] [address] [address] Dec, [facility] [address] [address] Dec, [facility] [address] [address] Dec, [facility] [address] [address] Nov, Reactive airway disease J45.909 [facility] [address] [address] Nov, [facility] [address] [address] Nov, [facility] [address] [address] 30 Nov, 2015 [facility] [address] [address] Nov, [facility] [address] [address] Nov, Onychomycosis B35.1 ; Hammertoe M20.40 ; [place] or callus L84 and DM neuro manif type II E11.49 [place] [address] [address] Nov, Chronic pain G89.29 ; Leukocytosis D72.8 29 and Diabetes E11.[address] [address] Nov, [place] [address] [address] Oct, Bronchitis J40 [place] [address] [address] Oct, [address] [address] Oct, [address] [address] Oct, Mastoiditis, unspecified laterality H70. 90 and Type 2 diabetes mellitus with complication E11.[address] [address] Sep, [address] [address] Sep, Dysuria R30.0 ; Cough R05 ; Benign prost atic hyperplasia with lower urinary tract symptoms, unspecified morphology N40.1 ; Hypokalemia E87.6 and Eustachian tube dysfunction, unspecified laterality H69.[address] [address] Sep, Moderate mixed bipolar I disorder F31.[address] [address] Sep, Hypokalemia E87.[address] [address] Sep, [place] [id number] [place] [address] Sep, Upper respiratory tract infection, unspe cified type J06.9 [facility] [address] [address] Aug, [facility] [address] [address] Aug, Dysuria R30.0 [facility] [address] [address] Aug, [facility] [address] [address] Jul, [facility] [address] [address] Jul, [facility] [address] [address] Jul, [facility] [address] [address] Jul, [facility] [address] [address] Jun, [facility] [address] [address] Jun, [facility] [address] [address] Jun, [facility] [address] [address] May, [facility] [address] [address] May, Bipolar I disorder, most recent episode (or current) mixed, moderate 296.62 [facility] [address] [address] 16 May, 2015 [facility] [address] [address] 02 May, 2015 Bipolar I disorder, most recent episode (or current) mixed, moderate 296.62 and Major depressive disorder, recurrent episode, severe, specified as with psychotic behavior 296.34 [facility] [address] [place] [id number] [place] [address] May, Bipolar I disorder, most recent episode (or current) mixed, moderate 296.62 [facility] [address] [place] [id number] [place] [address] May, [facility] [address] [address] Apr, [facility] [address] [address] Apr, [facility] [address] [address] Apr, Unspecified disorder of kidney and urete r 593.9 and Diabetes mellitus type 2, uncontrolled 250.02 [facility] [address] [address] Apr, [facility] [address] [address] Apr, [facility] [address] [address] Apr, [facility] [address] [address] Apr, [facility] [address] [address] Apr, Diabetes mellitus type II, uncontrolled 250.02 [facility] [address] [address] Apr, [facility] [address] [address] Mar, [facility] [address] [address] Mar, [facility] [address] [address] Mar, [facility] [address] [address] Mar, Major depressive disorder, recurrent epi sode, severe, specified as with psychotic behavior 296.34 and Bipolar I disorder, most recent episode (or current) mixed, moderate 296.62 [facility] [address] [address] Mar, Diabetes 250.00 ; Anuria 788.5 ; Nausea and vomiting 787.01 and Diarrhea 787.91 [facility] [address] [address] Mar, Diabetes 250.00 [facility] [address] [address] Mar, [facility] [address] [address] Mar, Diabetes 250.00 [facility] [address] [address] Mar, [facility] [address] [address] Mar, [facility] [address] [address] Mar, [facility] [address] [address] Mar, [facility] [address] [address] Mar, Bipolar I disorder, most recent episode (or current) mixed, moderate 296.62 and Major depressive disorder, recurrent episode, severe, specified as with psychotic behavior 296.34 [facility] [address] [address] Mar, Magnesium deficiency 275.2 ; Hypokalemia 276.8 ; Nausea & vomiting 787.01 and Diabetes mellitus type 2, uncontrolled 250.02 [facility] [address] [address] Feb, [facility] [address] [address] Feb, Bipolar I disorder, most recent episode (or current) mixed, moderate 296.62 [place] [address] [address] Feb, Nausea and vomiting 787.01 ; Left elbow pain 719.42 ; Anuria 788.5 and Diabetes 250.00 [place] [address] [address] Feb, [place] [address] [address] Feb, Hypopotassemia 276.8 and Hypokalemia [address] [address] Feb, Hypopotassemia 276.8 and Hypokalemia [address] [address] Feb, Seborrheic keratoses 702.19 [place] [address] [address] Feb, Hypopotassemia 276.8 and Low magnesium l evels 275.[address] [address] January, [address] [address] January, [place] [address] [address] January, [address] [address] January, Scalp lesion 709.[address] [address] January, [address] [address] Dec, Tear of medial cartilage or meniscus of knee, current 836.0 and 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 [place] [address] [id number] [place] [address] Dec, [facility] [place] [facility] [address] [id number] [place] [address] Dec, [facility] [place] [facility] [address] [id number] [place] [address] 28 Dec, 2014 Squamous cell carcinoma, 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 42 [facility] [place] [facility] [address] [id number] [place] [address] 14 Dec, 2014 [facility] [place] [facility] [address] [id number] [place] [address] 13 Dec, 2014 [facility] [place] [facility] [address] [id number] [place] [address] Nov, [facility] [place] [facility] [address] [id number] [place] [address] Nov, [facility] [place] [facility] [address] [id number] [place] [address] Nov, [facility] [place] [facility] [address] [id number] [place] [address] Nov, [facility] [place] [facility] [address] [id number] [place] [address] Nov, [facility] [place] [facility] [address] [id number] [place] [address] Nov, [facility] [place] [facility] [address] [id number] [place] [address] Nov, [facility] [place] [facility] [address] [id number] [place] [address] Nov, [facility] [place] [facility] [address] [id number] [place] [address] Nov, [facility] [place] [facility] [address] [id number] [place] [address] Nov, [facility] [place] [facility] [address] [id number] [place] [address] Nov, 2014 [facility] [place] [facility] [address] [id number] [place] [address] Nov, [facility] [place] [facility] [address] [id number] [place] [address] Oct, [facility] [place] [facility] [address] [id number] [place] [address] Oct, [facility] [place] [facility] [address] [id number] [place] [address] Oct, [facility] [place] [facility] [address] [id number] [place] [address] Oct, [facility] [place] [facility] [address] [id number] [place] [address] Oct, [facility] [place] [facility] [address] [id number] [place] [address] Oct, [facility] [place] [facility] [address] [id number] [place] [address] Oct, [facility] [place] [facility] [address] [id number] [place] [address] Oct, [facility] [place] [facility] [address] [id number] [place] [address] Oct, [facility] [place] [facility] [address] [id number] [place] [address] Sep, [facility] [place] [facility] [address] [id number] [place] [address] Sep, [facility] [place] [facility] [address] [id number] [place] [address] Sep, [facility] [place] [facility] [address] [id number] [place] [address] Sep, [facility] [place] [facility] [address] [id number] [place] [address] Sep, [facility] [place] [facility] [address] [id number] [place] [address] Sep, [facility] [place] [facility] [address] [id number] [place] [address] Sep, [facility] [place] [facility] [address] [id number] [place] [address] Sep, [facility] [place] [facility] [address] [id number] [place] [address] Sep, [facility] [place] [facility] [address] [id number] [place] [address] Sep, [facility] [place] [facility] [address] [id number] [place] [address] Sep, [facility] [place] [facility] [address] [id number] [place] [address] Sep, [facility] [place] [facility] [address] [id number] [place] [address] Sep, [facility] [place] [facility] [address] [id number] [place] [address] Sep, [facility] [place] [facility] [address] [id number] [place] [address] Sep, [facility] [place] [facility] [address] [id number] [place] [address] Sep, [facility] [place] [facility] [address] [id number] [place] [address] Aug, [facility] [place] [facility] [address] [id number] [place] [address] Aug, [facility] [place] [facility] [address] [id number] [place] [address] 31 Aug, 2014 [facility] [place] [facility] [address] [id number] [place] [address] 31 Aug, 2014 [facility] [place] [facility] [address] [id number] [place] [address] 31 Aug, 2014 [facility] [place] [facility] [address] [id number] [place] [address] 31 Aug, 2014 [facility] [place] [facility] [address] [id number] [place] [address] 17 Aug, 2014 [facility] [place] [facility] [address] [id number] [place] [address] 17 Aug, 2014 [facility] [place] [facility] [address] [id number] [place] [address] Aug, [facility] [place] [facility] [address] [id number] [place] [address] Aug, [facility] [place] [facility] [address] [id number] [place] [address] Aug, [facility] [address] [facility] [place] [id number] Aug, [facility] [place] [facility] [address] [facility] [id number] [place] [address] Aug, [facility] [place] [facility] [address] [id number] [place] [address] Aug, [facility] [place] [facility] [address] [id number] [place] [address] Aug, [facility] [place] [facility] [address] [id number] [place] [address] Aug, [facility] [place] [facility] [address] [id number] [place] [address] Aug, [facility] [place] [facility] [address] [id number] [place] [address] Aug, [facility] [place] [facility] [address] [id number] [place] [address] Aug, [facility] [place] [facility] [address] [id number] [place] [address] Aug, [facility] [place] [facility] [address] [facility] [id number] [place] [address] Aug, [facility] [place] [facility] [address] [id number] [place] [address] Aug, [facility] [place] [facility] [address] [facility] [id number] [place] [address] Aug, [facility] [place] [facility] [address] [id number] [place] [address] Aug, [facility] [place] [facility] [address] [id number] [place] [address] Aug, [facility] [place] [facility] [address] [id number] [place] [address] Aug, [facility] [place] [facility] [address] [id number] [place] [address] Aug, [facility] [place] [facility] [address] [id number] [place] [address] Aug, [facility] [place] [facility] [address] [id number] [place] [address] Aug, [facility] [place] [facility] [address] [id number] [place] [address] Aug, [facility] [place] [facility] [address] [id number] [place] [address] Jul, [facility] [place] [facility] [address] [id number] [place] [address] Jul, [facility] [place] [facility] [address] [id number] [place] [address] Jul, [facility] [place] [facility] [address] [id number] [place] [address] Jul, [facility] [place] [facility] [address] [id number] [place] [address] Jul, [facility] [place] [facility] [id number] [place] [address] Jul, [facility] [place] [facility] [id number] [place] [address] Jul, [facility] [place] [facility] [id number] [place] [address] Jul, [facility] [place] [facility] [id number] [place] [address] Jul, [facility] [place] [facility] [id number] [place] [address] Jul, [facility] [place] [facility] [id number] [place] [address] Jun, [facility] [place] [facility] [id number] [place] [address] Jun, [facility] [place] [facility] [id number] [place] [address] Jun, [facility] [place] [facility] [id number] [place] [address] Jun, [facility] [place] [facility] [id number] [place] [address] Jun, [facility] [place] [facility] [id number] [place] [address] Jun, [facility] [place] [facility] [id number] [place] [address] Jun, [facility] [place] [facility] [id number] [place] [address] Jun, [facility] [place] [facility] [id number] [place] [address] Jun, [facility] [place] [facility] [id number] [place] [address] Jun, [facility] [place] [facility] [id number] [place] [address] 29 Sep, 2013 [facility] [place] [facility] [id number] [place] [address] 29 Sep, 2013 [facility] [place] [facility] [id number] [place] [address] 26 Sep, 2013 [facility] [place] [facility] [id number] [place] [address] 26 Sep, 2013 [facility] [place] [facility] [id number] [place] [address] 17 Sep, 2013 [facility] [place] [facility] [id number] [place] [address] 17 Sep, 2013 [facility] [place] [facility] [id number] [place] [address] 15 Sep, 2013 [facility] [place] [facility] [id number] [place] [address] 15 May, 2013 [facility] [place] [facility] [address] [id number] [place] [address] 15 May, 2013 [facility] [place] [facility] [address] [id number] [place] [address] 15 May, 2013 [facility] [place] [facility] [id number] [place] [address] 10 May, 2013 [facility] [place] [facility] [address] [id number] [place] [address] 10 May, 2013 [facility] [place] [facility] [address] [id number] [place] [address] 09 May, 2013 [facility] [place] [facility] [id number] [place] [address] May, 2013 [facility] [place] [facility] [id number] [place] [address] May, 2013 [facility] [place] [facility] [id number] [place] [address] May, 2013 [facility] [place] [facility] [id number] [place] [address] Apr, [facility] [place] [facility] [id number] [place] [address] Apr, [facility] [place] [facility] [id number] [place] [address] Apr, [facility] [place] [facility] [address] [id number] [place] [address] Apr, [facility] [place] [facility] [address] [id number] [place] [address] Apr, [facility] [place] [facility] [address] [id number] [place] [address] Apr, [facility] [place] [facility] [address] [id number] [place] [address] Apr, 2013 [facility] [place] [facility] [address] [facility] [id number] [place] [address] Apr, 2013 [facility] [place] [facility] [address] [id number] [place] [address] Apr, [facility] [place] [facility] [address] [id number] [place] [address] Apr, [facility] [place] [facility] [address] [id number] [place] [address] Apr, [facility] [place] [facility] [address] [id number] [place] [address] Apr, [facility] [place] [facility] [address] [id number] [place] [address] Apr, [facility] [place] [facility] [address] [id number] [place] [address] Apr, [facility] [place] [facility] [address] [id number] [place] [address] Apr, [facility] [place] [facility] [address] [id number] [place] [address] Mar, [facility] [place] [facility] [address] [id number] [place] [address] Mar, [facility] [place] [facility] [address] [id number] [place] [address] Mar, [facility] [place] [facility] [address] [id number] [place] [address] Mar, [facility] [place] [facility] [address] [id number] [place] [address] Mar, [facility] [place] [facility] [address] [id number] [place] [address] Mar, [facility] [place] [facility] [address] [id number] [place] [address] Mar, [facility] [place] [facility] [address] [id number] [place] [address] Mar, [facility] [place] [facility] [address] [id number] [place] [address] Mar, [facility] [place] [facility] [address] [id number] [place] [address] Mar, [facility] [place] [facility] [address] [id number] [place] [address] Mar, 2013 [facility] [place] [facility] [address] [id number] [place] [address] Mar, 2013 [facility] [place] [facility] [address] [id number] [place] [address] Mar, 2013 [facility] [place] [facility] [address] [id number] [place] [address] Mar, 2013 [facility] [place] [facility] [address] [id number] [place] [address] Mar, 2013 [facility] [place] [facility] [address] [id number] [place] [address] Mar, 2013 [facility] [place] [facility] [address] [id number] [place] [address] Mar, 2013 [facility] [place] [facility] [address] [id number] [place] [address] Mar, 2013 [facility] [place] [facility] [address] [facility] [id number] [place] [address] Feb, [facility] [place] [facility] [address] [id number] [place] [address] Feb, [facility] [place] [facility] [address] [id number] [place] [address] Feb, [facility] [place] [facility] [address] [id number] [place] [address] Feb, [facility] [place] [facility] [address] [id number] [place] [address] Feb, [facility] [place] [facility] [address] [id number] [place] [address] Feb, [facility] [place] [facility] [address] [id number] [place] [address] Feb, [facility] [place] [facility] [address] [id number] [place] [address] Feb, [facility] [place] [facility] [address] [id number] [place] [address] Feb, [facility] [place] [facility] [address] [id number] [place] [address] Feb, [facility] [place] [facility] [address] [id number] [place] [address] Feb, [facility] [place] [facility] [address] [id number] [place] [address] Feb, [facility] [place] [facility] [address] [id number] [place] [address] Feb, [facility] [place] [facility] [address] [id number] [place] [address] Feb, [facility] [place] [facility] [address] [id number] [place] [address] January, [facility] [place] [facility] [address] [id number] [place] [address] January, [facility] [place] [facility] [address] [id number] [place] [address] January, [facility] [place] [facility] [address] [id number] [place] [address] January, [facility] [place] [facility] [address] [id number] [place] [address] January, [facility] [place] [facility] [address] [id number] [place] [address] January, [facility] [place] [facility] [address] [id number] [place] [address] January, [facility] [place] [facility] [address] [id number] [place] [address] January, [facility] [place] [facility] [address] [id number] [place] [address] January, [facility] [place] [facility] [address] [id number] [place] [address] January, [facility] [place] [facility] [address] [id number] [place] [address] January, [facility] [place] [facility] [address] [id number] [place] [address] January, [facility] [place] [facility] [address] [id number] [place] [address] January, [facility] [place] [facility] [address] [id number] [place] [address] January, [facility] [place] [facility] [address] [id number] [place] [address] Dec, [facility] [place] [facility] [address] [id number] [place] [address] Dec, [facility] [place] [facility] [address] [id number] [place] [address] Dec, [facility] [place] [facility] [address] [id number] [place] [address] Dec, [facility] [place] [facility] [address] [id number] [place] [address] Dec, [facility] [place] [facility] [address] [id number] [place] [address] Dec, [facility] [place] [facility] [address] [id number] [place] [address] Dec, [facility] [place] [facility] [address] [id number] [place] [address] Dec, [facility] [place] [facility] [address] [id number] [place] [address] Dec, [facility] [place] [facility] [address] [id number] [place] [address] Dec, [facility] [place] [facility] [address] [id number] [place] [address] Nov, [facility] [place] [facility] [address] [id number] [place] [address] Nov, [facility] [place] [facility] [address] [id number] [place] [address] Nov, [facility] [place] [facility] [address] [id number] [place] [address] Nov, [facility] [place] [facility] [address] [facility] [id number] [place] [address] 08 Nov, 2013 [facility] [place] [facility] [address] [id number] [place] [address] Nov, [facility] [place] [facility] [address] [id number] [place] [address] Nov, [facility] [place] [facility] [address] [id number] [place] [address] Nov, [facility] [place] [facility] [address] [facility] [id number] [place] [address] Nov, [facility] [place] [facility] [address] [id number] [place] [address] Nov, [facility] [place] [facility] [address] [id number] [place] [address] Oct, [facility] [place] [facility] [address] [id number] [place] [address] Oct, [facility] [place] [facility] [address] [id number] [place] [address] Oct, [facility] [place] [facility] [address] [facility] [id number] [place] [address] Oct, [facility] [place] [facility] [address] [facility] [id number] [place] [address] 20 Oct, 2013 [facility] [place] [facility] [address] [id number] [place] [address] Oct, [facility] [place] [facility] [address] [id number] [place] [address] 14 Oct, 2013 [facility] [place] [facility] [address] [id number] [place] [address] 14 Oct, 2013 [facility] [place] [facility] [address] [id number] [place] [address] 05 Oct, 2013 [facility] [place] [facility] [address] [id number] [place] [address] 05 Oct, 2013 [facility] [place] [facility] [address] [id number] [place] [address] 04 Oct, 2013 [facility] [place] [facility] [address] [id number] [place] [address] Oct, [facility] [place] [facility] [address] [id number] [place] [address] Oct, [facility] [place] [facility] [address] [id number] [place] [address] Oct, [facility] [place] [facility] [address] [id number] [place] [address] Sep, [facility] [place] [facility] [address] [id number] [place] [address] Sep, [facility] [place] [facility] [address] [id number] [place] [address] Sep, [facility] [place] [facility] [address] [id number] [place] [address] 15 Sep, 2013 [facility] [place] [facility] [address] [id number] [place] [address] Sep, [facility] [place] [facility] [address] [id number] [place] [address] Sep, [facility] [place] [facility] [address] [id number] [place] [address] Sep, [facility] [place] [facility] [address] [id number] [place] [address] Sep, [facility] [place] [facility] [address] [id number] [place] [address] 08 Sep, 2013 [facility] [place] [facility] [address] [id number] [place] [address] Sep, [facility] [place] [facility] [address] [id number] [place] [address] Aug, [facility] [place] [facility] [address] [id number] [place] [address] Aug, [facility] [place] [facility] [address] [id number] [place] [address] Jul, [facility] [place] [facility] [address] [id number] [place] [address] Jul, [facility] [place] [facility] [address] [id number] [place] [address] Jul, [facility] [place] [facility] [address] [id number] [place] [address] Jul, [facility] [place] [facility] [address] [id number] [place] [address] Jul, [facility] [place] [facility] [address] [id number] [place] [address] Jul, [facility] [place] [facility] [address] [id number] [place] [address] Jul, [facility] [place] [facility] [address] [id number] [place] [address] Jul, [facility] [place] [facility] [address] [id number] [place] [address] Jul, [facility] [place] [facility] [address] [id number] [place] [address] Jul, [facility] [place] [facility] [address] [id number] [place] [address] Jul, [facility] [place] [facility] [address] [id number] [place] [address] Jul, [facility] [place] [facility] [address] [id number] [place] [address] Jul, [facility] [place] [facility] [address] [id number] [place] [address] Jul, [facility] [place] [facility] [address] [id number] [place] [address] Jul, [facility] [place] [facility] [address] [id number] [place] [address] Jul, [facility] [place] [facility] [address] [id number] [place] [address] Jul, [facility] [place] [facility] [address] [id number] [place] [address] Jul, 2012 [facility] [place] [facility] [address] [id number] [place] [address] Jul, 2012 [facility] [place] [facility] [address] [id number] [place] [address] Jun, 2012 [facility] [place] [facility] [address] [id number] [place] [address] Jun, 2012 [facility] [place] [facility] [address] [id number] [place] [address] Jun, 2012 [facility] [place] [facility] [address] [id number] [place] [address] Jun, 2012 [facility] [place] [facility] [address] [id number] [place] [address] Jun, 2012 [facility] [place] [facility] [address] [id number] [place] [address] Jun, 2012 [facility] [place] [facility] [address] [id number] [place] [address] Jun, 2012 [facility] [place] [facility] [address] [id number] [place] [address] Jun, [facility] [place] [facility] [address] [id number] [place] [address] Jun, [facility] [place] [facility] [address] [id number] [place] [address] Jun, [facility] [place] [facility] [address] [id number] [place] [address] Jun, [facility] [place] [facility] [address] [id number] [place] [address] 26 May, 2012 [facility] [place] [facility] [address] [id number] [place] [address] 25 Sep, 2012 [facility] [place] [facility] [address] [id number] [place] [address] 19 Sep, 2012 [facility] [place] [facility] [address] [id number] [place] [address] 17 Sep, 2012 [facility] [place] [facility] [address] [id number] [place] [address] May, 2012 [facility] [place] [facility] [address] [id number] [place] [address] May, [facility] [place] [facility] [address] [id number] [place] [address] May, [facility] [place] [facility] [address] [id number] [place] [address] May, [facility] [place] [facility] [address] [id number] [place] [address] Apr, [facility] [place] [facility] [address] [id number] [place] [address] Apr, [facility] [place] [facility] [address] [id number] [place] [address] Apr, [facility] [place] [facility] [address] [id number] [place] [address] Apr, [facility] [place] [facility] [address] [id number] [place] [address] Apr, [facility] [place] [facility] [address] [id number] [place] [address] Mar, [facility] [place] [facility] [address] [id number] [place] [address] Mar, [facility] [place] [facility] [address] [id number] [place] [address] Mar, [facility] [place] [facility] [address] [id number] [place] [address] Mar, [facility] [place] [facility] [address] [id number] [place] [address] Mar, [facility] [place] [facility] [address] [id number] [place] [address] Mar, [facility] [place] [facility] [address] [id number] [place] [address] Mar, [facility] [place] [facility] [address] [id number] [place] [address] Mar, [facility] [address] [id number] [place] [address] Feb, [facility] [place] [facility] [address] [id number] [place] [address] Feb, [facility] [place] [facility] [address] [id number] [place] [address] January, [facility] [place] [facility] [address] [id number] [place] [address] January, [facility] [place] [facility] [address] [id number] [place] [address] Dec, [facility] [place] [facility] [address] [id number] [place] [address] Dec, [facility] [place] [facility] [address] [id number] [place] [address] Nov, [facility] [place] [facility] [address] [id number] [place] [address] Nov, [facility] [place] [facility] [address] [id number] [place] [address] Nov, [facility] [place] [facility] [address] [id number] [place] [address] Nov, [facility] [place] [facility] [address] [id number] [place] [address] Oct, [facility] [place] [facility] [address] [id number] [place] [address] Oct, [facility] [place] [facility] [address] [id number] [place] [address] Oct, [facility] [place] [facility] [address] [id number] [place] [address] Oct, [facility] [place] [facility] [address] [id number] [place] [address] 16 Oct, 2012 [facility] [place] [facility] [address] [id number] [place] [address] 14 Oct, 2012 [facility] [place] [facility] [address] [id number] [place] [address] 08 Oct, 2012 [facility] [address] [id number] [place] [address] 07 Oct, 2012 [facility] [place] [facility] [address] [id number] [place] [address] Oct, [facility] [address] [id number] [place] [address] Sep, [facility] [place] [facility] [address] [id number] [place] [address] Sep, [facility] [place] [facility] [address] [id number] [place] [address] Sep, [facility] [place] [facility] [address] [id number] [place] [address] Sep, [facility] [address] [id number] [place] [address] Sep, [facility] [place] [facility] [id number] [place] [address] Sep, [facility] [place] [facility] [id number] [place] [address] Sep, [facility] [place] [facility] [id number] [place] [address] Sep, [facility] [place] [facility] [id number] [place] [address] Aug, [facility] [place] [facility] [id number] [place] [address] Aug, [facility] [place] [facility] [id number] [place] [address] Aug, [facility] [place] [facility] [id number] [place] [address] Aug, [facility] [place] [facility] [id number] [place] [address] Aug, [facility] [place] [facility] [id number] [place] [address] Aug, [facility] [place] [facility] [id number] [place] [address] Aug, [facility] [place] [facility] [id number] [place] [address] Aug, [facility] [place] [facility] [id number] [place] [address] Jul, [facility] [place] [facility] [id number] [place] [address] Jul, [facility] [place] [facility] [id number] [place] [address] Jul, [facility] [place] [facility] [id number] [place] [address] Jul, [facility] [place] [facility] [id number] [place] [address] Jul, [facility] [place] [facility] [id number] [place] [address] Jul, [facility] [place] [facility] [id number] [place] [address] Jun, [facility] [place] [facility] [id number] [place] [address] Jun, [facility] [place] [facility] [id number] [place] [address] Jun, [facility] [place] [facility] [id number] [place] [address] Jun, [facility] [place] [facility] [id number] [place] [address] Jun, [facility] [place] [facility] [id number] [place] [address] Jun, [facility] [place] [facility] [id number] [place] [address] Jun, [facility] [place] [facility] [id number] [place] [address] Jun, [facility] [place] [facility] [id number] [place] [address] 10 Jun, 2012 [facility] [place] [facility] [id number] [place] [address] 26 May, 2012 [facility] [place] [facility] [id number] [place] [address] 24 May, 2012 [facility] [place] [facility] [id number] [place] [address] May, [facility] [place] [facility] [id number] [place] [address] Apr, [facility] [place] [facility] [id number] [place] [address] Apr, [facility] [place] [facility] [id number] [place] [address] Apr, [facility] [place] [facility] [id number] [place] [address] Apr, [facility] [place] [facility] [id number] [place] [address] Apr, [facility] [place] [facility] [id number] [place] [address] Apr, [facility] [place] [facility] [id number] [place] [address] Mar, [facility] [place] [facility] [id number] [place] [address] Mar, [facility] [place] [facility] [id number] [place] [address] Mar, [facility] [place] [facility] [id number] [place] [address] Mar, [facility] [place] [facility] [id number] [place] [address] Feb, [facility] [place] [facility] [id number] [place] [address] Feb, [facility] [place] [facility] [id number] [place] [address] Feb, [facility] [place] [facility] [id number] [place] [address] Feb, [facility] [place] [facility] [id number] [place] [address] Feb, [facility] [place] [facility] [id number] [place] [address] January, [facility] [place] [facility] [id number] [place] [address] January, [facility] [place] [facility] [id number] [place] [address] January, [facility] [place] [facility] [id number] [place] [address] January, [facility] [place] [facility] [id number] [place] [address] January, [facility] [place] [facility] [id number] [place] [address] January, [facility] [place] [facility] [id number] [place] [address] Dec, [facility] [place] [facility] [id number] [place] [address] Dec, [facility] [place] [facility] [id number] [place] [address] Dec, [facility] [place] [facility] [id number] [place] [address] Dec, [facility] [place] [facility] [id number] [place] [address] Dec, [facility] [place] [facility] [id number] [place] [address] Nov, [facility] [place] [facility] [id number] [place] [address] 14 Nov, 2011 [facility] [place] [facility] [id number] [place] [address] Nov, [facility] [place] [facility] [id number] [place] [address] Nov, [facility] [place] [facility] [id number] [place] [address] Oct, [facility] [place] [facility] [id number] [place] [address] Oct, [facility] [place] [facility] [id number] [place] [address] Oct, [facility] [place] [facility] [id number] [place] [address] Oct, [facility] [place] [facility] [id number] [place] [address] Oct, [facility] [place] [facility] [id number] [place] [address] Sep, [facility] [place] [facility] [id number] [place] [address] Sep, [facility] [place] [facility] [id number] [place] [address] Sep, [facility] [place] [facility] [id number] [place] [address] Sep, [facility] [place] [facility] [id number] [place] [address] Sep, [facility] [id number] [place] [address] Sep, [facility] [id number] [place] [address] Aug, [facility] [id number] [place] [address] Aug, [facility] [id number] [place] [address] Aug, [facility] [id number] [place] [address] Jul, [facility] [id number] [place] [address] Jul, [facility] [id number] [place] [address] 10 Jul, 2011 [facility] [id number] [place] [address] Jul, [facility] [id number] [place] [address] Jun, [facility] [id number] [place] [address] Jun, [facility] [id number] [place] [address] 18 Jun, 2011 [facility] [id number] [place] [address] Jun, [facility] [id number] [place] [address] Jun, [facility] [id number] [place] [address] Jun, [facility] [id number] [place] [address] Mar, [facility] [id number] [place] [address] Dec, [facility] [id number] [place] [address] Dec, [facility] [id number] [place] [address] Nov, [facility] [id number] [place] [address] 16 Nov, 2010 [facility] [id number] [place] [address] Sep, [facility] [id number] [place] [address] Aug, [facility] [id number] [place] [address] Aug, [facility] [id number] [place] [address] Aug, [facility] [id number] [place] [address] 29 Aug, 2010 [facility] [id number] [place] [address] Aug, [facility] [id number] [place] [address] 14 Aug, 2010 [facility] [id number] [place] [address] 08 Aug, 2010 [facility] [id number] [place] [address] 08 Aug, 2010 [facility] [id number] [place] [address] Aug, [facility] [id number] [place] [address] Aug, [facility] [id number] [place] [address] Aug, [facility] [id number] [place] [address] Aug, [facility] [id number] [place] [address] Jul, [facility] [id number] [place] [address] Jul, [facility] [id number] [place] [address] 30 Jul, 2010 [facility] [id number] [place] [address] 17 Jul, 2010 [facility] [id number] [place] [address] Jul, [facility] [id number] [place] [address] Jul, [facility] [id number] [place] [address] 24 Jun, 2010 [facility] [id number] [place] [address] 19 Jun, 2010 [facility] [address] [id number] [place] [address] 19 Jun, 2010 [facility] [id number] [place] [address] 13 Jun, 2010 [facility] [id number] [place] [address] 16 Apr, 2010 [facility] [id number] [place] [address] 20 Mar, 2010 [facility] [id number] [place] [address] Feb, [facility] [id number] [place] [address] January, [facility] [id number] [place] [address] 15 Dec, 2009 [facility] [id number] [place] [address] Nov, [facility] [id number] [place] [address] Aug, [facility] [id number] [place] [address] Aug, [facility] [id number] [place] [address] Aug, [facility] [id number] [place] [address] Jul, [facility] [id number] [place] [address] Jul, [facility] [id number] [place] [address] 07 Jul, 2009 [facility] [id number] [place] [address] 30 Jun, 2009 [facility] [id number] [place] [address] 29 Jun, 2009 [facility] [id number] [place] [address] Jun, [facility] [id number] [place] [address] Jun, [facility] [id number] [place] [address] Jun, [facility] [id number] [place] [address] Jun, [facility] [id number] [place] [address] Apr, [facility] [id number] [place] [address] Apr, [facility] [id number] [place] [address] Feb, [facility] [id number] [place] [address] January, [facility] [id number] [place] [address] Dec, IMMUNIZATIONS No Known Immunizations SOCIAL HISTORY Never Assessed REASON FOR VISIT PLAN OF CARE VITAL SIGNS MEDICATIONS Unknown Medications RESULTS No Results PROCEDURES Procedure Date Ordered Result Body Site NATRIURETIC PEPTIDE November 25, 2013 VENIPUNCT, ROUTINE* November 25, 2013 INSTRUCTIONS MEDICATIONS ADMINISTERED No Known Medications MEDICAL (GENERAL) HISTORY Type Description Date Medical History type II diabetes Medical History coronary artery disease stress test Medical History chronic obstructive pulmonary disease (C OPD) Medical History gastroesophageal reflux disease (GERD) Medical History acute renal failure Medical History erectile dysfunction Medical History hyperlipidemia Medical History obesity Medical History skin cancer-basal cell R quaker (removed ) Medical History Arthritis Medical History [...] History inability to urinate 09/16/15 Hospitalization History [facility] Hospitalization History hyperkalemia 10/2017 Hospitalization History fluid in lung
--- NOTE | 2020-03-01 16:46 | ED Chest Pain ---
General Stated Complaint: LIGHTHEADED/L ARM HEAVINESS Source: patient Exam Limitations: no limitations History of Present Illness Date Seen by Provider: Mar 01, 2020 Time Seen by Provider: 16:25 Initial Comments Here with report of 4 days of chest heaviness and one day of left arm heaviness. States that he is getting increasingly weak and gets dizzy when standing. Does have history of high blood pressure as well as cardiac disease with one previous stenting. Has had episodes of vomiting with the dizziness but otherwise is not nauseated. Denies diarrhea. Denies recent fever or chills or any other upper respiratory symptoms or syndromes. Does have swelling of both lower extremities. Currently being treated for lymphoma through oncology Center. Timing/Duration: getting worse, changing over time Severity/Quality: moderate Location: central Radiation: arms (left) Activities at Onset: rest Prior CP/Workup: cardiac cath, echocardiography, heart attack Modifying Factors: improves with rest ASA po BILLING DEPARTMENT SUPERVISOR: No NTG SL BILLING DEPARTMENT SUPERVISOR: No Associated Symptoms: No abdominal pain, No back pain; dizziness, edema; No fever/chills; nausea/vomiting; No shortness of breath; weakness Allergies and Home Medications Allergies Coded Allergies: No Known Drug Allergies (Unverified , 09/28/18) Home Medications Albuterol Sulfate 18 Gm Hfa.aer.ad, 2 PUFF INH Q4H PRN for SHORTNESS OF BREATH, (Reported) Albuterol Sulfate 1.25 Mg/3 Ml Vial.neb, 1.25 MG NEB TID PRN for SHORTNESS OF BREATH, (Reported) Allopurinol 300 Mg Tablet, 300 MG PO DAILY, (Reported) Aripiprazole 30 Mg Tablet, 30 MG PO DAILY, (Reported) Aspirin 81 Mg Tablet.dr, 81 MG PO DAILY, (Reported) Clonidine HCl 0.1 Mg Tablet, 0.1 MG PO BID, (Reported) Diazepam 5 Mg Tablet, 5 MG PO BID PRN for ANXIETY, (Reported) Diclofenac Sodium 100 Gm Gel..gram., 4 GM TOP Q4H PRN for JOINT PAIN, (Reported) APPLY TO KNEE AND HIP Esomeprazole Magnesium 40 Mg Capsule.dr, 40 MG PO DAILY, (Reported) Fluticasone Propionate 16 Gm [place].susp, 1 SPRAY NS DAILY, (Reported) Furosemide 20 Mg Tablet, 60 MG PO DAILY, (Reported) TAKES 3 (20MG) TABLETS Gabapentin 300 Mg Capsule, 600 MG PO TID, (Reported) TAKES 2 (300MG) CAPSULES Ibrutinib 140 Mg Capsule, 420 MG PO HS, (Reported) TAKES 3 (140MG) CAPSULES Insulin Aspart 300 Units/3 Ml Solution, 5-20 UNITS SC AC, (Reported) Insulin Glargine,Hum.rec.anlog 100 Unit/1 Ml Vial, 100 UNITS SC BID, (Reported) Liraglutide 0.6 Mg/0.1 Ml Pen.injctr, 1.8 MG INJ DAILY, (Reported) Metoprolol Succinate 50 Mg Tab.er.24h, 50 MG PO DAILY, (Reported) Naproxen 500 Mg Tablet, 500 MG PO BID PRN for PAIN-MILD, (Reported) Ondansetron HCl 8 Mg Tablet, 8 MG PO BID PRN for NAUSEA/VOMITING, (Reported) Potassium Chloride 20 Meq Tablet.er, 20 MEQ PO DAILY, (Reported) Tamsulosin HCl 0.4 Mg Cap.er.24h, 0.4 MG PO DAILY, (Reported) Umeclidinium [place] 62.5 Mcg Blst.w.dev, 1 PUFF INH DAILY, (Reported) Vortioxetine Hydrobromide 20 Mg Tablet, 20 MG PO DAILY, (Reported) Zolpidem Tartrate 10 Mg Tablet, 10 MG PO HS, (Reported) Patient Home Medication List Home Medication List Reviewed: Yes Review of Systems Review of Systems Constitutional: see HPI; No chills, No fever EENTM: No Symptoms Reported Respiratory: Denies Cough; Shortness of Air Cardiovascular: Chest Pain, Edema, Lightheadedness Gastrointestinal: Nausea, Vomiting Genitourinary: No Symptoms Reported Musculoskeletal: no symptoms reported Skin: change in color (lower extremity bilateral venous stasis changes); No lesions Psychiatric/Neurological: Anxiety, Weakness Endocrine: No Symptoms Reported All Other Systems Reviewed Negative Unless Noted: Yes Past Mdjxxzl-Dunwqs-Jbzjfq Hx Past Med/Social Hx: Reviewed Nursing Past Med/Soc Hx Patient Social History Alcohol Use: Denies Use Recreational Drug Use: No Smoking Status: Never a Smoker Type Used: Cigars Former Smoker, Quit: Sep 25, 2014 Recent Foreign Travel: No Contact w/Someone Who Travel: No Recent Hopitalizations: No Immunizations Up To Date Tetanus Booster (TDap): Unknown PED Vaccines UTD: No Date of Pneumonia Vaccine: Aug 19, 2014 Date of Influenza Vaccine: Nov 02, 2017 Seasonal Allergies Seasonal Allergies: Yes Past Medical History Surgeries: Yes Coronary Stent, Orthopedic Respiratory: Yes Asthma, Pneumonia, Sleep Apnea Currently Using CPAP: Yes Currently Using BIPAP: No Cardiac: Yes (HEART CATHS X2/STENTS, [place] AND LAST CATH/STENTS 04/2014) Coronary Artery Disease, Heart Attack, High Cholesterol, Hypertension Neurological: Yes Seizure Disorder Reproductive Disorders: No Sexually Transmitted Disease: No HIV/AIDS: No Genitourinary: Yes Renal Failure, UTI-Chronic Gastrointestinal: Yes Gastroesophageal Reflux Musculoskeletal: Yes Arthritis, Chronic Back Pain Endocrine: Yes (obesity) Diabetes, Insulin dep HEENT: No Hearing Impairment: Hard of Hearing Cancer: Yes (B-cell lymphoma) Leukemia, Skin, Lymphoma Did You Recieve Any Treatments: Yes What Type of Treatment Did You: Chemotherapy, Surgical Intervention Psychosocial: Yes Anxiety, Bipolar Integumentary: No Blood Disorders: No Adverse Reaction/Blood Tranf: No Family Medical History Reviewed Nursing Family Hx (noted) Alcoholism G8 BROTHER Arthritis 19 FATHER Cataracts 19 FATHER Completed stroke 19 MOTHER Deafness or hearing loss 19 FATHER Diabetes mellitus 19 MOTHER Headache disorder 19 FATHER 19 MOTHER G8 BROTHER G8 SISTER Hypercholesterolemia 19 FATHER Hypertension 19 FATHER Prostate cancer G8 BROTHER Psychosocial problem 19 MOTHER Respiratory disorder 19 FATHER 19 MOTHER Visual disorder 19 MOTHER Cancer, Diabetes, Hypertension Physical Exam Vital Signs Vital Signs - First Documented 03/01/20 16:25 Temp 36.5 Pulse 90 Resp 18 B/P (MAP) 258/147 (184) Pulse Ox 95 O2 Delivery Room Air Capillary Refill : Height, Weight, BMI Height: 5'7.00" Weight: 352lbs. 8.0oz. 159.975385hh; 55.2 BMI Method:Stated General Appearance: No Apparent Distress, Obese HEENT: PERRL/EOMI, Pharynx Normal Neck: Non Tender, Supple Respiratory: Lungs Clear, Normal Breath Sounds Cardiovascular: Regular Rate, Rhythm, No Murmur Gastrointestinal: Non Tender, Soft, Other (morbidly obese) Extremity: Normal Range of Motion, Non Tender, Pedal Edema (2+ to above the mid tibia bilateral) Neurologic/Psychiatric: Alert, Normal Mood/Affect Skin: Warm/Dry, Other (darkening scan to the lower extremities consistent with venous stasis changes) Progress/Results/Core Measures Results/Orders Lab Results Laboratory Tests Test 03/01/20 16:50 Range/Units White Blood Count 6.7 4.3-11.0 10^3/uL Red Blood Count 4.43 4.35-5.85 10^6/uL Hemoglobin 12.9 L 13.3-17.7 G/DL Hematocrit 39 L 40-54 % Mean Corpuscular Volume 87 80-99 FL Mean Corpuscular Hemoglobin 29 25-34 PG Mean Corpuscular Hemoglobin Concent 33 32-36 G/DL Red Cell Distribution Width 14.3 10.0-14.5 % Platelet Count 255 130-400 10^3/uL Mean Platelet Volume 11.1 H 7.4-10.4 FL Neutrophils (%) (Auto) 60 42-75 % Lymphocytes (%) (Auto) 26 12-44 % Monocytes (%) (Auto) 11 0-12 % Eosinophils (%) (Auto) 2 0-10 % Basophils (%) (Auto) 1 0-10 % Neutrophils # (Auto) 4.1 1.8-7.8 X 10^3 Lymphocytes # (Auto) 1.7 1.0-4.0 X 10^3 Monocytes # (Auto) 0.7 0.0-1.0 X 10^3 Eosinophils # (Auto) 0.2 0.0-0.3 10^3/uL Basophils # (Auto) 0.0 0.0-0.1 10^3/uL Prothrombin Time 13.0 12.2-14.7 SEC INR Comment 0.9 0.8-1.4 Activated Partial Thromboplast Time 28 24-35 SEC D-Dimer 0.45 0.00-0.49 UG/ML Sodium Level 133 L 135-145 MMOL/L Potassium Level 3.7 3.6-5.0 MMOL/L Chloride Level 96 L 98-107 MMOL/L Carbon Dioxide Level 25 21-32 MMOL/L Anion Gap 12 5-14 MMOL/L Blood Urea Nitrogen 13 7-18 MG/DL Creatinine 1.18 0.60-1.30 MG/DL Estimat Glomerular Filtration Rate > 60 BUN/Creatinine Ratio 11 Glucose Level 525 *H 70-105 MG/DL Calcium Level 8.6 8.5-10.1 MG/DL Corrected Calcium 9.0 8.5-10.1 MG/DL Magnesium Level 1.5 L 1.6-2.4 MG/DL Total Bilirubin 0.3 0.1-1.0 MG/DL Aspartate Amino Transf (AST/SGOT) 15 5-34 U/L Alanine Aminotransferase (ALT/SGPT) 15 0-55 U/L Alkaline Phosphatase 89 40-136 U/L Myoglobin 37.9 10.0-92.0 NG/ML Troponin I 0.076 H <0.028 NG/ML B-Type Natriuretic Peptide 97.3 <100.0 PG/ML Total Protein 6.4 6.4-8.2 GM/DL Albumin 3.5 3.2-4.5 GM/DL My Orders Orders - MALIA BOYD MD Cbc With Automated Diff (03/01/20 16:36) Magnesium (03/01/20 16:36) Chest 1 View, Ap/Pa Only (03/01/20 16:36) Ekg Tracing (03/01/20 16:36) Comprehensive Metabolic Panel (03/01/20 16:36) Myoglobin Serum (03/01/20 16:36) Protime With Inr (03/01/20 16:36) Partial Thromboplastin Time (03/01/20 16:36) O2 (03/01/20 16:36) Monitor-Rhythm Ecg Trace Only (03/01/20 16:36) Lipid Panel (03/02/20 06:00) Ed Iv/Invasive Line Start (03/01/20 16:36) Troponin I (03/01/20 16:36) Nitroglycerin 0.4 Mg Btl 25's (Nitrostat (03/01/20 16:45) Aspirin Chewable Tablet (Baby Aspirin Ch (03/01/20 16:45) Metoprolol Tartrate Injection (Lopressor (03/01/20 16:45) Metoprolol Tartrate Injection (Lopressor (03/01/20 16:41) BNP (03/01/20 16:47) Fibrin Degradation Products (03/01/20 17:03) Ed Iv/Invasive Line Start (03/01/20 17:33) Ns Iv 500 Ml (Sodium Chloride 0.9%) (03/01/20 17:33) Insulin (Regular) Human (Humulin R (Per (03/01/20 17:33) Medications Given in ED Current Medications Medications Dose Ordered Sig/Mikey Route Start Time Stop Time Status Last Admin Dose Admin Aspirin 324 mg ONCE ONCE PO 03/01/20 16:45 03/01/20 16:46 DC 03/01/20 16:55 324 MG Metoprolol Tartrate 5 mg ONCE ONCE IV 03/01/20 16:45 03/01/20 16:46 DC 03/01/20 17:01 5 MG Nitroglycerin 0.4 mg UD PRN SL 03/01/20 16:45 03/01/20 16:55 0.4 MG Sodium Chloride 500 ml @ 0 mls/hr Q0M ONCE IV 03/01/20 17:33 03/01/20 17:34 DC 03/01/20 17:43 500 MLS/HR Vital Signs/I&O 03/01/20 16:25 Temp 36.5 Pulse 90 Resp 18 B/P (MAP) 258/147 (184) Pulse Ox 95 O2 Delivery Room Air Progress Progress Note : Progress Note Seen and evaluated. Chest pain protocol initiated. IV, labs, EKG and chest x-ray ordered. ASA 324 mg by mouth, nitroglycerin sublingual when necessary chest pressure arm pressure and metoprolol 5 mg IV ordered. Monitor patient. 1732: Blood sugar greater than 500. Insulin 15 units IV ordered. Monitor patient. 1800: I did discuss the case with Dr. Peterson and she accepts patient for admission on-call for [facility]. I also discussed case with Dr. Borja and he accepts patient on-call for Dr. Rendon. We will consult Dr. Rendon in the morning. Chest pain order set initiated. Discussed with the patient and family who agree with plan. Initial ECG Impression Date: Mar 01, 2020 Initial ECG Impression Time: 16:25 Initial ECG Rate: 98 Initial ECG Rhythm: Normal Sinus Comment Sinus rhythm. Intraventricular conduction delay with left axis deviation. No evidence of ST elevation [place]. 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 Interpreted by me. Diagnostic Imaging Diagonstic Imaging: Xray Plain Films/CT/US/NM/MRI: chest Comments [facility], [place] NAME: LORENA MCKEON [facility] REC#: [id number] PT STATUS: REG ER : 1965 PHYSICIAN: MALIA BOYD MD ADMIT DATE: 03/01/20/ER Signed Date of Exam:03/01/20 CHEST 1 VIEW, AP/PA ONLY INDICATION: Chest tightness for one week. EXAMINATION: Upright portable chest was obtained. FINDINGS: Normal heart size and vascularity. The left heart border is obscured. This could be due to pericardial fat. Lingular infiltrate is a possibility. The right lung is clear. There is no effusion or pneumothorax. IMPRESSION: There is increased density in the left lung compared to 09/28/2017 study. This may be secondary to a lingular infiltrate. Follow-up PA and lateral chest would be helpful for better evaluation of this. Dictated by: Dictated on workstation # [id number] Dict: 03/01/20 1708 Trans: 03/01/20 1715 [facility] [id number] Interpreted by: MARY RUTH MD Electronically signed by: MARY RUTH MD 03/01/20 1715 Departure Communication (Admissions) Time/Spoke to Admitting Phy: 17:55 Time/Spoke to Consulting Phy: 17:57 Impression Primary Impression: Elevated troponin Additional Impressions: Chest pain Qualified Codes: R07.9 - Chest pain, unspecified Uncontrolled type 2 diabetes mellitus with hyperglycemia, with long-term current use of insulin Labile hypertension Disposition: ADMITTED INPATIENT Condition: Stable Admissions Decision to Admit Reason: Admit from ER (General) Decision to Admit/Date: Mar 01, 2020 Time/Decision to Admit Time: 17:55 Departure-Patient Inst. Referrals: [facility] (PCP) Primary Care Physician NOEMI WASHBURN (Family) Primary Care Physician MALIA BOYD MD Mar 01, 2020 16:46
--- OUTSIDE RECORDS SUMMARY | 2020-03-01 16:46 | XMS REPORT ---
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 Name Role Phone ROSELINE LUIS Unavailable PROBLEMS Type Condition ICD9-CM Code CRD72-PO Code Onset Dates Condition S tatus SNOMED Code Problem DM neuro manif type II E11.49 Active 64195649 Problem Chronic pain G89.29 Active 9277311 1 Problem Diabetes E11.9 Active 37067392 Problem Reactive airway disease J45.909 Active 156669702213 Problem Leukocytosis D72.829 Active 5056157 06 Problem Insomnia, unspecified type G47.00 Act sharon 737989420 Problem Bipolar I disorder, most recent episode (or curr ent) mixed, moderate F31.62 Active 55852403 Problem Primary osteoarthritis of right knee M17.11 Active 222807523261584 Problem Cough R05 Active 39798332 Problem Pure hypercholesterolemia E78.00 Acti ve 355135535 Problem Dysuria R30.0 Active 91272194 Problem Benign prostatic hyperplasia with lower urinary tract symptoms, unspecified morphology N40.1 Active 75833 6007 Problem Eustachian tube dysfunction, unspecified laterality H69.80 Active 61533034 Problem Polyneuropathy associated with underlying disease G63 Active 851545585 Problem Diabetic polyneuropathy associated with type 2 d iabetes mellitus E11.42 Active 74286398 Problem Anemia of chronic illness D63.8 Acti ve 661997986 Problem Chronic lymphocytic leukemia C91.10 A ctive 25595875 Problem Bilateral primary osteoarthritis of knee M17.0 Active 140832765 Problem 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 Active 609879914 Problem Eye exam abnormal R93.8 Active 16 9087912 Problem Retinal edema H35.81 Active 354437 6 Problem Lymphocytosis D72.820 Active 137271 09 Problem Bipolar disorder, in partial remission, most rec ent episode depressed F31.75 Active 22910029 Problem Hypokalemia E87.6 Active 50136005 Problem Falling R29.6 Active 883625320 Problem Pressure ulcer of other site, stage 3 L89.893 Active 070682448 Problem Other iron deficiency anemia D50.8 A ctive 00088738 Problem Mild cognitive impairment G31.84 Acti ve 163266228 Problem Skin cancer C44.90 Active 38363684 7 Problem 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 Active 844692081 Problem Morbid obesity E66.01 Active 01262 6002 Problem Mood disorder F39 Active 090863 05 Problem Anxiety F41.9 Active 01105431 Problem Essential hypertension I10 Active 30199239 Problem Bipolar disorder F31.9 Active 137 12499 Problem Chronic diastolic (congestive) heart failure I50.3 2 Active 099307842 Problem Psychophysiological insomnia F51.04 A ctive 352397459 Problem Type 2 diabetes mellitus with diabetic neuropathy, uns pecified E11.40 Active 78950807 ALLERGIES No Information ENCOUNTERS Encounter Location Date Diagnosis [place] [address] [address] Dec, [place] [address] [address] Dec, [facility] [address] [address] Nov, [facility] [address] [address] Nov, [place] [address] [address] Nov, [facility] [address] [address] Oct, Chronic pain G89.29 [facility] [address] [address] Oct, [place] [address] [address] Oct, Mood disorder F39 [facility] [address] [address] Oct, [place] [address] [id number] [place] [address] 10 Oct, 2019 Bipolar disorder, in partial remission, most recent episode depressed F31.75 and Mild cognitive impairment G31.84 [facility] [address] [id number] [place] [address] 04 Oct, 2019 Mood disorder F39 [facility] [address] [id number] [place] [address] 28 Sep, 2019 [facility] [address] [place] [id number] [place] [address] Sep, Mood disorder F39 [facility] [address] [place] [id number] [place] [address] Sep, Bipolar disorder, in partial remission, most recent episode depressed F31.75 and Mild cognitive impairment G31.84 [facility] [address] [place] [id number] [place] [address] 06 Sep, 2019 Mood disorder F39 [facility] [address] [place] [id number] [place] [address] Sep, [facility] [address] [id number] [place] [address] Sep, Mood disorder F39 [facility] [address] [place] [id number] [place] [address] Sep, [facility] [address] [id number] [place] [address] Aug, Mood disorder F39 [facility] [address] [place] [id number] [place] [address] Aug, [facility] [address] [id number] [place] [address] Aug, [facility] [address] [place] [id number] [place] [address] Aug, [facility] [address] [id number] [place] [address] Aug, [facility] [address] [place] [id number] [place] [address] Aug, [facility] [address] [place] [id number] [place] [address] Aug, [facility] [address] [address] Aug, [facility] [address] [address] Aug, Essential hypertension I10 [facility] [address] [address] Aug, Bipolar disorder, in partial remission, most recent episode depressed F31.75 and Mild cognitive impairment G31.84 [facility] [address] [address] Aug, Mood disorder F39 [facility] [address] [address] Aug, [facility] [address] [address] Aug, Bipolar disorder, in partial remission, most recent episode depressed F31.75 and Mild cognitive impairment G31.84 [facility] [address] [address] Jul, Bipolar disorder, in partial remission, most recent episode depressed F31.75 and Mild cognitive impairment G31.84 [facility] [address] [address] Jul, Psychophysiological insomnia F51.04 [facility] [address] [address] Jul, [facility] [address] [address] Jul, [facility] [address] [address] Jul, [facility] [address] [address] Jul, [facility] [address] [address] Jul, [place] [address] [address] Jul, [place] [address] [address] Jul, Bipolar disorder, in partial remission, most recent episode depressed F31.75 and Mild cognitive impairment G31.84 [place] [address] [address] Jul, Chronic pain G89.29 ; Diabetes E11.9 ; E ssential hypertension I10 ; Ill feeling R68.89 ; Local infection of the skin and subcutaneous tissue, unspecified L08.9 and Other injury of unspecified body region, initial encounter T14.8XXA [place] [address] [address] Jun, Bipolar disorder, in partial remission, most recent episode depressed F31.75 and Mild cognitive impairment G31.84 [place] [address] [address] Jun, [place] [address] [address] Jun, Bipolar disorder, in partial remission, most recent episode depressed F31.75 and Mild cognitive impairment G31.84 [place] [address] [address] Jun, Psychophysiological insomnia F51.04 [place] [address] [address] Jun, Psychophysiological insomnia F51.04 ; Ch ronic pain G89.29 ; Bipolar I disorder, most recent episode (or current) mixed, moderate F31.62 ; 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 ; Polyneuropathy associated with underlying disease G63 ; Type 2 diabetes mellitus with diabetic neuropathy, unspecified E11.40 ; group home (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 Z79.4 and Hyperglycemia R73.9 [place] [address] [address] Jun, Bipolar disorder, in partial remission, most recent episode depressed F31.75 and Mild cognitive impairment G31.84 [facility] [address] [address] Jun, [facility] [address] [address] Jun, Bipolar disorder F31.9 [facility] [address] [address] May, Bipolar disorder, in partial remission, most recent episode depressed F31.75 and Mild cognitive impairment G31.84 [facility] [address] [address] May, [facility] [address] [address] Apr, Chronic pain G89.29 and Bipolar disorder F31.9 [facility] [address] [address] Mar, Bipolar disorder F31.9 and Chronic pain G89.29 [facility] [address] [address] Feb, Bipolar disorder F31.9 [facility] [address] [address] Feb, Cellulitis of right upper extremity L03. 113 and Skin abrasion T14.8XXA [facility] [address] [address] Feb, Bipolar disorder, in partial remission, most recent episode depressed F31.75 and Mild cognitive impairment G31.84 [facility] [address] [address] Feb, Chronic pain G89.29 [facility] [address] [address] Feb, Bipolar disorder, in partial remission, most recent episode depressed F31.75 and Mild cognitive impairment G31.84 [facility] [address] [place] [id number] [place] [address] January, Bipolar disorder, in partial remission, most recent episode depressed F31.75 and Mild cognitive impairment G31.84 [facility] [address] [place] [id number] [place] [address] January, Chronic pain G89.29 and Bipolar disorder F31.9 [facility] [address] [address] January, Bipolar disorder, in partial remission, most recent episode depressed F31.75 and Mild cognitive impairment G31.84 [facility] [address] [place] [id number] [place] [address] Dec, [facility] [address] [address] Dec, Chronic pain G89.29 and Bipolar disorder F31.9 [facility] [address] [address] Dec, Edema of both lower extremities R60.0 [facility] [address] [address] Dec, Bipolar disorder F31.9 [facility] [address] [address] Dec, Bipolar disorder, in partial remission, most recent episode depressed F31.75 and Mild cognitive impairment G31.84 [facility] [address] [place] [id number] [place] [address] Nov, [facility] [address] [address] Nov, Chronic pain G89.29 [facility] [address] [address] Nov, Bipolar disorder, in partial remission, most recent episode depressed F31.75 and Mild cognitive impairment G31.84 [facility] [address] [place] [id number] [place] [address] Nov, Bipolar disorder F31.9 [place] [address] [address] 04 Nov, 2018 Encounter for Medicare annual [...] morphology N40.1 and Essential hypertension I10 [address] [address] 21 Oct, 2018 Chronic pain G89.[address] [address] 18 Oct, 2018 Diabetes E11.[address] [address] Oct, Bipolar I disorder, most recent episode (or current) mixed, moderate F31.62 and Mild cognitive impairment G31.[address] [address] Oct, Bipolar I disorder, most recent episode (or current) mixed, moderate F31.62 and Mild cognitive impairment G31.[address] [address] Sep, Bipolar I disorder, most recent episode (or current) mixed, moderate F31.62 and Mild cognitive impairment G31.[address] [address] Sep, [address] [address] Sep, Diabetes E11.9 ; Hypoxia R09.02 ; Hyperg lycemia R73.9 ; Therapeutic drug monitoring Z51.81 ; BMI 50.0-59.9, adult Z68.43 and Skin cancer C44.90 [place] [address] [address] Sep, Chronic pain G89.29 [facility] [address] [place] [address] Sep, Bipolar I disorder, most recent episode (or current) mixed, moderate F31.62 [place] [address] [address] Sep, [place] [address] [address] Sep, [place] [address] [address] Aug, Chronic pain G89.29 [place] [address] [address] Aug, Bipolar I disorder, most recent episode (or current) mixed, moderate F31.62 [place] [address] [address] Aug, Bipolar I disorder, most recent episode (or current) mixed, moderate F31.62 and Mild cognitive impairment G31.84 [place] [address] [address] Jul, [place] [address] [address] Jul, Chronic pain G89.29 [place] [address] [address] Jul, Bipolar I disorder, most recent episode (or current) mixed, moderate F31.62 and Mild cognitive impairment G31.84 [place] [address] [address] Jul, Bipolar I disorder, most recent episode (or current) mixed, moderate F31.62 and MCI (mild cognitive impairment) G31.84 [place] [address] [address] Jul, [facility] [address] [place] [id number] [place] [address] Jul, [facility] [address] [place] [id number] [place] [address] Jul, Bipolar I disorder, most recent episode (or current) mixed, moderate F31.62 [facility] [address] [place] [id number] [place] [address] Jul, Chronic pain G89.29 [facility] [address] [address] Jun, Bipolar I disorder, most recent episode (or current) mixed, moderate F31.62 [place] [address] [address] Jun, Pre-procedure lab exam Z01.812 [place] [id number] [place] [address] Jun, [facility] [address] [facility] [address] Jun, [facility] [address] [place] [id number] [place] [address] Jun, [place] [address] [place] [address] [place] [address] Jun, Forgetfulness R68.89 ; Pre-syncope R55 ; Localized edema R60.0 ; Other iron deficiency anemia D50.8 and BMI 50.0-59.9, adult Z68.43 [facility] [address] [place] [id number] [place] [address] Jun, Chronic pain G89.29 [facility] [address] [place] [address] [place] [address] Jun, Chronic pain G89.29 [facility] [address] [place] [id number] [place] [address] Jun, Bipolar I disorder, most recent episode (or current) mixed, moderate F31.62 [facility] [address] [address] May, Chronic pain G89.29 [place] [address] [address] Apr, [place] [address] [address] Apr, Chronic pain G89.29 [place] [address] [address] Apr, Primary osteoarthritis of right knee M17 .[address] [address] Mar, [address] [address] Mar, BMI 50.0-59.9, adult Z68.43 and Bipolar disorder, in partial remission, most recent episode depressed F31.[address] [address] Mar, Diabetes E11.9 ; Pure hypercholesterolem ia E78.00 ; Essential hypertension I10 ; Nausea with vomiting, unspecified R11.2 and Headache, unspecified headache type R51 [place] [address] [address] Mar, Bipolar I disorder, most recent episode (or current) mixed, moderate F31.[address] [address] Mar, Bipolar I disorder, most recent episode (or current) mixed, moderate F31.62 [place] [address] [address] Mar, Chronic pain G89.[address] [address] Mar, Bipolar I disorder, most recent episode (or current) mixed, moderate F31.[address] [address] Feb, Bipolar I disorder, most recent episode (or current) mixed, moderate F31.62 [place] [address] [address] 14 Feb, 2018 Chronic pain G89.29 [place] [address] [address] Feb, Decubitus ulcer of right foot, stage 3 L 89.893 and BMI 50.0-59.9, adult Z68.43 [place] [address] [address] Feb, Bipolar I disorder, most recent episode (or current) mixed, moderate F31.62 [place] [address] [address] Feb, [place] [address] [address] January, [place] [address] [address] January, Chronic pain G89.29 [place] [address] [address] January, Bipolar I disorder, most recent episode (or current) mixed, moderate F31.62 [place] [address] [address] January, Bipolar I disorder, most recent episode (or current) mixed, moderate F31.62 [place] [address] [address] Dec, Bipolar I disorder, most recent episode (or current) mixed, moderate F31.62 and BMI 50.0-59.9, adult Z68.43 [place] [address] [address] Dec, Bipolar I disorder, most recent episode (or current) mixed, moderate F31.62 [place] [address] [address] Dec, Chronic pain G89.29 [facility] [address] [address] Dec, DM neuro manif type II E11.49 ; Right fl ank pain R10.9 ; 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 ; Encounter for medication monitoring Z51.81 and BMI 50.0-59.9, adult Z68.43 [place] [address] [address] 04 Dec, 2017 Bipolar I disorder, most recent episode (or current) mixed, moderate F31.62 [place] [address] [address] Nov, Bipolar I disorder, most recent episode (or current) mixed, moderate F31.62 [place] [address] [address] Nov, Chronic pain G89.29 [place] [address] [address] Nov, Bipolar I disorder, most recent episode (or current) mixed, moderate F31.62 [place] [address] [address] Nov, Hypokalemia E87.6 [place] [address] [address] Nov, Bipolar I disorder, most recent episode (or current) mixed, moderate F31.62 [place] [address] [address] Oct, Chronic pain G89.29 [place] [address] [address] Oct, BMI 50.0-59.9, adult Z68.43 and Bipolar I disorder, most recent episode (or current) mixed, moderate F31.62 [place] [address] [address] Oct, Bipolar I disorder, most recent episode (or current) mixed, moderate F31.62 [facility] [address] [address] Oct, [place] [address] [address] Oct, Hypokalemia E87.6 [place] [address] [address] Oct, DM neuro manif type II E11.49 [place] [address] [address] Oct, Bipolar I disorder, most recent episode (or current) mixed, moderate F31.62 [place] [address] [address] Oct, Bipolar I disorder, most recent episode (or current) mixed, moderate F31.62 [place] [address] [address] 14 Oct, 2017 Hyperkalemia E87.5 ; Falling R29.6 ; BMI 50.0-59.9, adult Z68.43 and Acute left ankle pain M25.572 [place] [address] [address] Oct, DM neuro manif type II E11.49 [place] [address] [address] Oct, [place] [address] [address] Sep, Chronic pain G89.29 [place] [address] [address] Sep, [address] [address] Sep, Bilateral primary osteoarthritis of knee M17.0 [place] [address] [address] Sep, Generalized edema R60.1 [place] [id number] [place] [address] Sep, Bipolar I disorder, most recent episode (or current) mixed, moderate F31.62 [place] [address] [address] 15 Sep, 2017 Hypoxia R09.02 ; Other hypervolemia E87. 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 ; Anemia of chronic illness D63.8 and BMI 50.0-59.9, adult Z68.43 [place] [address] [address] Sep, [address] [address] Sep, Bipolar I disorder, most recent episode (or current) mixed, moderate F31.62 [place] [address] [address] Aug, Chronic pain G89.29 [place] [address] [address] Aug, Generalized edema R60.[address] [address] Aug, [place] [address] [address] 18 Aug, [address] [address] 14 Aug, 2017 Bipolar I disorder, most recent episode (or current) mixed, moderate F31.62 [place] [address] [address] 07 Aug, 2017 Bipolar I disorder, most recent episode (or current) mixed, moderate F31.62 [place] [address] [address] 04 Aug, 2017 Chronic pain G89.[address] [address] Jul, Bipolar I disorder, most recent episode (or current) mixed, moderate F31.62 [place] [address] [place] [address] Jul, Bipolar I disorder, most recent episode (or current) mixed, moderate F31.62 and BMI 60.0-69.9, adult Z68.44 [place] [address] [place] [address] Jul, Bipolar I disorder, most recent episode (or current) mixed, moderate F31.62 [place] [address] [place] [address] Jul, Chronic pain G89.29 [place] [address] Jul, Bipolar I disorder, most recent episode (or current) mixed, moderate F31.62 [place] [address] [address] Jun, Polyneuropathy associated with underlyin g disease G63 and Diabetes E11.9 [place] [address] Jun, Bipolar I disorder, most recent episode (or current) mixed, moderate F31.62 [place] [address] [address] Jun, Chronic pain G89.29 [place] [address] [address] May, Bipolar I disorder, most recent episode (or current) mixed, moderate F31.62 [place] [address] May, Bipolar I disorder, most recent episode (or current) mixed, moderate F31.62 [place] [address] [place] [address] May, Diabetic polyneuropathy associated with type 2 diabetes mellitus E11.42 [facility] [address] [address] 18 May, 2017 Bipolar I disorder, most recent episode (or current) mixed, moderate F31.62 [facility] [address] [address] 13 May, 2017 Bipolar I disorder, most recent episode (or current) mixed, moderate F31.62 [facility] [address] [address] 12 May, 2017 Chronic pain G89.29 [facility] [address] [address] 30 Apr, 2017 Bipolar I disorder, most recent episode (or current) mixed, moderate F31.62 [facility] [address] [address] Apr, [place] [address] [address] Apr, Chronic pain G89.29 and DM neuro manif t ype II E11.49 [facility] [address] [address] Apr, [facility] [address] [address] Apr, Bipolar I disorder, most recent episode (or current) mixed, moderate F31.62 [facility] [address] [address] Apr, Chronic pain G89.29 [facility] [address] [address] Apr, Iliotibial band syndrome, left M76.32 [facility] [address] [address] Apr, Bipolar I disorder, most recent episode (or current) mixed, moderate F31.62 [facility] [address] [address] Mar, Bipolar I disorder, most recent episode (or current) mixed, moderate F31.62 [facility] [address] [address] Mar, Bipolar I disorder, most recent episode (or current) mixed, moderate F31.62 [facility] [address] [address] Mar, [facility] [address] [address] Mar, Bipolar I disorder, most recent episode (or current) mixed, moderate F31.62 [place] [address] [address] Mar, Chronic pain G89.29 [place] [address] [address] Mar, Bipolar I disorder, most recent episode (or current) mixed, moderate F31.62 [place] [address] [address] Mar, Bipolar I disorder, most recent episode (or current) mixed, moderate F31.62 [place] [address] [address] Mar, Acute pain of left knee M25.562 ; Left h ip pain M25.552 ; Generalized edema R60.1 and Tongue swelling R22.0 [place] [address] [address] Mar, [facility] [address] [address] Feb, Chronic pain G89.29 [facility] [address] [address] Feb, Diabetes E11.9 [place] [address] [address] January, Chronic pain G89.29 [place] [place] [address] [address] January, [place] [address] [address] January, Bipolar I disorder, most recent episode (or current) mixed, moderate F31.62 [place] [address] [address] Dec, Bipolar I disorder, most recent episode (or current) mixed, moderate F31.62 [place] [address] [address] Dec, Chronic pain G89.29 [place] [address] [address] Dec, Bipolar I disorder, most recent episode (or current) mixed, moderate F31.62 [place] [address] [address] Dec, Diabetes E11.9 ; Essential hypertension I10 ; Chronic pain G89.29 and Morbid obesity E66.01 [place] [address] [address] Dec, [place] [address] [address] Dec, Bipolar I disorder, most recent episode (or current) mixed, moderate F31.62 [place] [address] [address] Dec, Bipolar I disorder, most recent episode (or current) mixed, moderate F31.62 [place] [address] [address] Nov, Chronic pain G89.29 [facility] [address] [address] Nov, Bipolar I disorder, most recent episode (or current) mixed, moderate F31.62 [place] [address] [address] Nov, [place] [address] [address] Nov, Bipolar I disorder, most recent episode (or current) mixed, moderate F31.62 [facility] [address] [address] Nov, Bipolar I disorder, most recent episode (or current) mixed, moderate F31.62 [facility] [address] [address] Nov, [facility] [address] [address] Nov, [facility] [address] [address] Nov, [place] [address] [address] Oct, Chronic pain G89.29 [place] [address] [address] Oct, Bipolar I disorder, most recent episode (or current) mixed, moderate F31.62 [place] [address] [address] Oct, [place] [address] [address] Oct, Chronic pain G89.29 ; Diabetes E11.9 ; A nxiety F41.9 and 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 [place] [address] [address] Oct, [facility] [address] [address] Oct, Diabetes E11.9 [facility] [address] [address] Oct, Bipolar I disorder, most recent episode (or current) mixed, moderate F31.62 [facility] [address] [address] Sep, Chronic pain G89.29 [facility] [address] [address] Sep, Chronic pain G89.29 [facility] [address] [address] Aug, Chronic pain G89.29 [facility] [address] [address] Jul, [facility] [address] [address] Jul, Diabetes E11.9 [facility] [address] [address] Jul, Chronic pain G89.29 [facility] [address] [address] Jul, Bipolar I disorder, most recent episode (or current) mixed, moderate F31.62 [place] [address] [address] Jun, Bipolar I disorder, most recent episode (or current) mixed, moderate F31.62 [facility] [address] [address] Jun, [facility] [address] [address] Jun, Bipolar I disorder, most recent episode (or current) mixed, moderate F31.62 [place] [address] [address] May, Insomnia, unspecified type G47.00 [facility] [address] [address] May, Bipolar I disorder, most recent episode (or current) mixed, moderate F31.62 [facility] [address] [address] 14 May, 2016 [facility] [address] [address] 08 May, 2016 Bipolar I disorder, most recent episode (or current) mixed, moderate F31.62 [place] [address] [address] May, Diabetes E11.9 and Essential hypertensio n I10 [place] [address] [address] Apr, Chronic pain G89.29 [place] [address] [address] Apr, Bipolar I disorder, most recent episode (or current) mixed, moderate F31.62 [place] [address] [address] Apr, [place] [address] [address] Apr, [place] [address] [address] Mar, Chronic pain G89.29 ; Headache, unspecif ied headache type R51 ; Neuropathy G62.9 ; Pain of right hip joint M25.551 and Essential hypertension I10 [place] [address] [address] Mar, Chronic pain G89.29 [place] [address] [address] Mar, Bipolar I disorder, most recent episode (or current) mixed, moderate F31.62 [place] [address] [address] Feb, Bipolar I disorder, most recent episode (or current) mixed, moderate F31.62 and Insomnia, unspecified type G47.00 [place] [address] [address] Feb, Chronic pain G89.29 [place] [address] [address] Feb, Bipolar I disorder, most recent episode (or current) mixed, moderate F31.62 [place] [address] [address] January, Bipolar I disorder, most recent episode (or current) mixed, moderate F31.62 [place] [address] [address] January, Chronic pain G89.29 [place] [address] [address] January, Chronic pain G89.29 and Essential hypert ension I10 [place] [address] [address] January, Bipolar I disorder, most recent episode (or current) mixed, moderate F31.62 [place] [address] [address] Dec, [place] [address] [address] Dec, [address] [address] Dec, [place] [address] [address] Dec, [place] [address] [address] Nov, Reactive airway disease J45.[address] [address] Nov, [address] [address] Nov, [place] [address] [address] Nov, [place] [address] [address] Nov, [address] [address] Nov, Onychomycosis B35.1 ; Hammertoe M20.40 ; [place] or callus L84 and DM neuro manif type II E11.49 [id number] [place] [address] Nov, Chronic pain G89.29 ; Leukocytosis D72.8 29 and Diabetes E11.9 [place] [address] [address] Nov, [place] [address] [address] Oct, Bronchitis J40 [place] [address] [address] Oct, [place] [address] [address] Oct, [place] [address] [address] Oct, Mastoiditis, unspecified laterality H70. 90 and Type 2 diabetes mellitus with complication E11.8 [place] [address] [address] Sep, [place] [address] [address] Sep, Dysuria R30.0 ; Cough R05 ; Benign prost atic hyperplasia with lower urinary tract symptoms, unspecified morphology N40.1 ; Hypokalemia E87.6 and Eustachian tube dysfunction, unspecified laterality H69.80 [place] [address] [address] Sep, Moderate mixed bipolar I disorder F31.62 [place] [address] [address] Sep, Hypokalemia E87.[address] [address] Sep, [address] [address] Sep, Upper respiratory tract infection, unspe cified type J06.9 [place] [address] [address] Aug, [facility] [address] [place] [id number] [place] [address] Aug, Dysuria R30.0 [facility] [address] [place] [id number] [place] [address] Aug, [facility] [address] [place] [id number] [place] [address] Jul, [facility] [address] [address] Jul, [facility] [address] [address] Jul, [facility] [address] [address] Jul, [facility] [address] [address] Jun, [facility] [address] [address] Jun, [facility] [address] [place] [id number] [place] [address] Jun, [facility] [address] [address] May, [facility] [address] [address] May, Bipolar I disorder, most recent episode (or current) mixed, moderate 296.62 [facility] [address] [place] [id number] [place] [address] 16 May, 2015 [facility] [address] [address] May, Bipolar I disorder, most recent episode (or current) mixed, moderate 296.62 and Major depressive disorder, recurrent episode, severe, specified as with psychotic behavior 296.34 [facility] [address] [place] [id number] [place] [address] May, Bipolar I disorder, most recent episode (or current) mixed, moderate 296.62 [facility] [address] [address] May, [facility] [address] [address] Apr, [facility] [address] [address] Apr, [facility] [address] [address] Apr, Unspecified disorder of kidney and urete r 593.9 and Diabetes mellitus type 2, uncontrolled 250.02 [facility] [address] [address] Apr, [facility] [address] [address] Apr, [facility] [address] [address] Apr, [facility] [address] [address] Apr, [facility] [address] [address] Apr, Diabetes mellitus type II, uncontrolled 250.02 [facility] [address] [address] Apr, [facility] [address] [address] Mar, [facility] [address] [address] Mar, [facility] [address] [address] Mar, [facility] [address] [address] Mar, Major depressive disorder, recurrent epi sode, severe, specified as with psychotic behavior 296.34 and Bipolar I disorder, most recent episode (or current) mixed, moderate 296.[address] [address] Mar, Diabetes 250.00 ; Anuria 788.5 ; Nausea and vomiting 787.01 and Diarrhea 787.[address] [address] Mar, Diabetes 250.[address] [address] Mar, [address] [address] Mar, Diabetes 250.[address] [address] Mar, [address] [address] Mar, [address] [address] Mar, [address] [address] Mar, [address] [address] Mar, Bipolar I disorder, most recent episode (or current) mixed, moderate 296.62 and Major depressive disorder, recurrent episode, severe, specified as with psychotic behavior 296.[address] [address] Mar, Magnesium deficiency 275.2 ; Hypokalemia 276.8 ; Nausea & vomiting 787.01 and Diabetes mellitus type 2, uncontrolled 250.[address] [address] Feb, [address] [address] Feb, Bipolar I disorder, most recent episode (or current) mixed, moderate 296.[address] [address] Feb, Nausea and vomiting 787.01 ; Left elbow pain 719.42 ; Anuria 788.5 and Diabetes 250.00 [facility] [address] [address] Feb, [facility] [address] [address] Feb, Hypopotassemia 276.8 and Hypokalemia 276 .8 [place] [address] [address] Feb, Hypopotassemia 276.8 and Hypokalemia 276 .8 [place] [address] [address] Feb, Seborrheic keratoses 702.19 [place] [address] [address] Feb, Hypopotassemia 276.8 and Low magnesium l evels 275.2 [place] [address] [address] January, [facility] [address] [address] January, [facility] [address] [address] January, [facility] [address] [address] January, Scalp lesion 709.9 [facility] [address] [address] January, [facility] [address] [address] Dec, Tear of medial cartilage or meniscus of knee, current 836.0 and 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 [facility] [address] [address] Dec, [facility] [address] [address] Dec, [facility] [place] [facility] [address] [id number] [place] [address] 28 Dec, 2014 Squamous cell carcinoma, 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 42 [facility] [place] [facility] [address] [id number] [place] [address] 14 Dec, 2014 [facility] [place] [facility] [address] [id number] [place] [address] Dec, [facility] [place] [facility] [address] [id number] [place] [address] Nov, [facility] [place] [facility] [address] [id number] [place] [address] Nov, [facility] [place] [facility] [address] [id number] [place] [address] Nov, [facility] [place] [facility] [address] [id number] [place] [address] Nov, [facility] [place] [facility] [address] [id number] [place] [address] Nov, [facility] [place] [facility] [address] [id number] [place] [address] Nov, [facility] [place] [facility] [address] [id number] [place] [address] Nov, [facility] [place] [facility] [address] [id number] [place] [address] Nov, [facility] [place] [facility] [address] [id number] [place] [address] Nov, [facility] [place] [facility] [address] [id number] [place] [address] Nov, [facility] [place] [facility] [address] [id number] [place] [address] Nov, [facility] [place] [facility] [address] [id number] [place] [address] Nov, [facility] [place] [facility] [address] [id number] [place] [address] Oct, [facility] [place] [facility] [address] [id number] [place] [address] Oct, [facility] [place] [facility] [address] [id number] [place] [address] Oct, [facility] [place] [facility] [address] [id number] [place] [address] Oct, 2014 [facility] [place] [facility] [address] [id number] [place] [address] Oct, 2014 [facility] [place] [facility] [address] [id number] [place] [address] Oct, 2014 [facility] [place] [facility] [address] [id number] [place] [address] Oct, 2014 [facility] [place] [facility] [address] [id number] [place] [address] Oct, [facility] [place] [facility] [address] [place] [id number] [place] [address] Oct, [facility] [place] [facility] [address] [id number] [place] [address] Sep, [facility] [place] [facility] [address] [id number] [place] [address] Sep, [facility] [place] [facility] [address] [id number] [place] [address] Sep, [facility] [place] [facility] [address] [id number] [place] [address] Sep, [facility] [place] [facility] [address] [id number] [place] [address] Sep, [facility] [place] [facility] [address] [id number] [place] [address] Sep, [facility] [place] [facility] [address] [id number] [place] [address] Sep, [facility] [place] [facility] [address] [id number] [place] [address] Sep, [facility] [place] [facility] [address] [id number] [place] [address] 14 Sep, 2014 [facility] [place] [facility] [address] [facility] [id number] [place] [address] 14 Sep, 2014 [facility] [place] [facility] [address] [facility] [id number] [place] [address] 08 Sep, 2014 [facility] [place] [facility] [address] [id number] [place] [address] Sep, [facility] [place] [facility] [address] [id number] [place] [address] Sep, [facility] [place] [facility] [address] [facility] [id number] [place] [address] Sep, [facility] [place] [facility] [address] [id number] [place] [address] Sep, [facility] [place] [facility] [address] [id number] [place] [address] Sep, [facility] [place] [facility] [address] [id number] [place] [address] Aug, [facility] [place] [facility] [address] [id number] [place] [address] 31 Aug, 2014 [facility] [place] [facility] [address] [id number] [place] [address] Aug, [facility] [place] [facility] [address] [id number] [place] [address] 31 Aug, 2014 [facility] [place] [facility] [address] [id number] [place] [address] 31 Aug, 2014 [facility] [place] [facility] [address] [facility] [id number] [place] [address] 31 Aug, 2014 [facility] [place] [facility] [address] [id number] [place] [address] 17 Aug, 2014 [facility] [place] [facility] [address] [id number] [place] [address] 17 Aug, 2014 [facility] [place] [facility] [address] [id number] [place] [address] 12 Aug, 2014 [facility] [place] [facility] [address] [facility] [id number] [place] [address] Aug, [facility] [place] [facility] [address] [facility] [id number] [place] [address] Aug, [facility] [address] [place] [facility] [place] [id number] Aug, [facility] [place] [facility] [address] [id number] [place] [address] Aug, [facility] [place] [facility] [address] [facility] [id number] [place] [address] Aug, [facility] [place] [facility] [address] [facility] [id number] [place] [address] Aug, [facility] [place] [facility] [address] [id number] [place] [address] Aug, [facility] [place] [facility] [address] [id number] [place] [address] Aug, [facility] [place] [facility] [address] [id number] [place] [address] Aug, [facility] [place] [facility] [address] [facility] [id number] [place] [address] Aug, [facility] [place] [facility] [address] [id number] [place] [address] Aug, [facility] [place] [facility] [address] [id number] [place] [address] Aug, [facility] [place] [facility] [address] [id number] [place] [address] Aug, [facility] [place] [facility] [address] [facility] [id number] [place] [address] Aug, [facility] [place] [facility] [address] [id number] [place] [address] Aug, [facility] [place] [facility] [address] [id number] [place] [address] Aug, [facility] [place] [facility] [address] [id number] [place] [address] Aug, [facility] [place] [facility] [address] [id number] [place] [address] Aug, [facility] [place] [facility] [address] [id number] [place] [address] Aug, [facility] [place] [facility] [address] [id number] [place] [address] Aug, [facility] [place] [facility] [address] [id number] [place] [address] Aug, [facility] [place] [facility] [address] [id number] [place] [address] Jul, [facility] [place] [facility] [address] [id number] [place] [address] Jul, [facility] [place] [facility] [address] [id number] [place] [address] Jul, [facility] [place] [facility] [address] [id number] [place] [address] Jul, [facility] [place] [facility] [address] [id number] [place] [address] Jul, [facility] [place] [facility] [address] [id number] [place] [address] Jul, [facility] [place] [facility] [address] [id number] [place] [address] Jul, [facility] [place] [facility] [address] [id number] [place] [address] Jul, [facility] [place] [facility] [address] [id number] [place] [address] Jul, [facility] [place] [facility] [address] [id number] [place] [address] Jul, [facility] [place] [facility] [address] [id number] [place] [address] Jun, [facility] [place] [facility] [address] [id number] [place] [address] Jun, [facility] [place] [facility] [address] [id number] [place] [address] 16 Jun, 2014 [facility] [place] [facility] [address] [facility] [id number] [place] [address] 16 Jun, 2014 [facility] [place] [facility] [address] [facility] [id number] [place] [address] 15 Jun, 2014 [facility] [place] [facility] [address] [id number] [place] [address] 15 Jun, 2014 [facility] [place] [facility] [address] [id number] [place] [address] Jun, [facility] [address] [facility] [id number] [place] [address] Jun, [facility] [address] [id number] [place] [address] Jun, [facility] [address] [id number] [place] [address] Jun, [facility] [address] [id number] [place] [address] 29 May, 2013 [facility] [address] [id number] [place] [address] 29 Sep, 2013 [facility] [address] [id number] [place] [address] 26 Sep, 2013 [facility] [address] [id number] [place] [address] 26 Sep, 2013 [facility] [address] [id number] [place] [address] 17 Sep, 2013 [facility] [address] [id number] [place] [address] 17 Sep, 2013 [facility] [address] [id number] [place] [address] 15 Sep, 2013 [facility] [address] [id number] [place] [address] 15 Sep, 2013 [facility] [address] [id number] [place] [address] 15 May, 2013 [facility] [address] [id number] [place] [address] 15 May, 2013 [facility] [address] [id number] [place] [address] 10 May, 2013 [facility] [address] [facility] [id number] [place] [address] 10 May, 2013 [facility] [address] [id number] [place] [address] 09 May, 2013 [facility] [address] [facility] [id number] [place] [address] 09 May, 2013 [facility] [address] [id number] [place] [address] 04 May, 2013 [facility] [address] [id number] [place] [address] May, 2013 [facility] [address] [id number] [place] [address] Apr, [facility] [address] [id number] [place] [address] Apr, [facility] [address] [id number] [place] [address] Apr, [facility] [address] [id number] [place] [address] Apr, [facility] [address] [id number] [place] [address] Apr, [facility] [address] [id number] [place] [address] Apr, [facility] [address] [facility] [id number] [place] [address] Apr, [facility] [address] [id number] [place] [address] Apr, [facility] [address] [id number] [place] [address] Apr, [facility] [address] [id number] [place] [address] Apr, [facility] [address] [id number] [place] [address] Apr, [facility] [address] [facility] [id number] [place] [address] Apr, [facility] [address] [facility] [id number] [place] [address] Apr, [facility] [address] [facility] [id number] [place] [place] [address] Apr, [facility] [place] [facility] [address] [facility] [id number] [place] [address] Apr, [facility] [place] [facility] [address] [id number] [place] [address] Mar, [facility] [place] [facility] [address] [facility] [id number] [place] [address] Mar, [facility] [place] [facility] [address] [id number] [place] [address] Mar, [facility] [place] [facility] [address] [facility] [id number] [place] [address] Mar, [facility] [place] [facility] [address] [facility] [id number] [place] [address] Mar, [facility] [place] [facility] [address] [facility] [id number] [place] [address] Mar, [facility] [place] [facility] [address] [id number] [place] [address] Mar, [facility] [place] [facility] [address] [facility] [id number] [place] [address] Mar, [facility] [place] [facility] [address] [facility] [id number] [place] [address] Mar, [facility] [place] [facility] [address] [facility] [id number] [place] [address] Mar, [facility] [place] [facility] [address] [facility] [id number] [place] [address] Mar, [facility] [place] [facility] [address] [facility] [id number] [place] [address] Mar, 2013 [facility] [place] [facility] [address] [facility] [id number] [place] [address] Mar, 2013 [facility] [place] [facility] [address] [facility] [id number] [place] [address] Mar, 2013 [facility] [place] [facility] [address] [id number] [place] [address] Mar, 2013 [facility] [place] [facility] [address] [facility] [id number] [place] [address] Mar, 2013 [facility] [place] [facility] [address] [facility] [id number] [place] [address] Mar, 2013 [facility] [place] [facility] [address] [facility] [id number] [place] [address] Mar, 2013 [facility] [place] [facility] [address] [id number] [place] [address] Feb, [facility] [place] [facility] [address] [id number] [place] [address] Feb, [facility] [place] [facility] [address] [facility] [id number] [place] [address] Feb, [facility] [place] [facility] [address] [id number] [place] [address] Feb, [facility] [place] [facility] [address] [id number] [place] [address] Feb, [facility] [place] [facility] [address] [id number] [place] [address] Feb, [facility] [place] [facility] [address] [facility] [id number] [place] [address] Feb, [facility] [place] [facility] [address] [facility] [id number] [place] [address] Feb, [facility] [place] [facility] [address] [id number] [place] [address] Feb, [facility] [place] [facility] [address] [id number] [place] [address] Feb, [facility] [place] [facility] [address] [id number] [place] [address] Feb, [facility] [place] [facility] [address] [id number] [place] [address] Feb, [facility] [place] [facility] [address] [id number] [place] [address] Feb, [facility] [place] [facility] [address] [id number] [place] [address] Feb, [facility] [place] [facility] [address] [id number] [place] [address] January, [facility] [place] [facility] [address] [id number] [place] [address] January, [facility] [place] [facility] [address] [id number] [place] [address] January, [facility] [place] [facility] [address] [id number] [place] [address] January, [facility] [place] [facility] [address] [id number] [place] [address] January, [facility] [place] [facility] [address] [id number] [place] [address] January, [facility] [place] [facility] [address] [id number] [place] [address] January, [facility] [place] [facility] [address] [id number] [place] [address] January, [facility] [place] [facility] [address] [id number] [place] [address] January, [facility] [place] [facility] [address] [id number] [place] [address] January, [facility] [place] [facility] [address] [id number] [place] [address] January, [facility] [place] [facility] [address] [id number] [place] [address] January, [facility] [place] [facility] [address] [id number] [place] [address] January, [facility] [place] [facility] [address] [facility] [id number] [place] [address] January, [facility] [place] [facility] [address] [facility] [id number] [place] [address] Dec, [facility] [place] [facility] [address] [facility] [id number] [place] [address] Dec, [facility] [place] [facility] [address] [id number] [place] [address] Dec, [facility] [place] [facility] [address] [facility] [id number] [place] [address] Dec, [facility] [place] [facility] [address] [id number] [place] [address] Dec, [facility] [place] [facility] [address] [id number] [place] [address] Dec, [facility] [place] [facility] [address] [id number] [place] [address] Dec, [facility] [place] [facility] [address] [id number] [place] [address] Dec, [facility] [place] [facility] [address] [id number] [place] [address] Dec, [facility] [place] [facility] [address] [id number] [place] [address] Dec, [facility] [place] [facility] [address] [id number] [place] [address] Nov, [facility] [place] [facility] [address] [id number] [place] [address] Nov, [facility] [place] [facility] [address] [facility] [id number] [place] [address] Nov, [facility] [place] [facility] [address] [id number] [place] [address] Nov, [facility] [place] [facility] [address] [id number] [place] [address] Nov, [facility] [place] [facility] [address] [id number] [place] [address] Nov, [facility] [place] [facility] [address] [id number] [place] [address] Nov, [facility] [place] [facility] [address] [id number] [place] [address] Nov, [facility] [place] [facility] [address] [id number] [place] [address] Nov, [facility] [place] [facility] [address] [id number] [place] [address] Nov, [facility] [place] [facility] [address] [id number] [place] [address] Oct, [facility] [place] [facility] [address] [id number] [place] [address] Oct, [facility] [place] [facility] [address] [id number] [place] [address] Oct, [facility] [place] [facility] [address] [id number] [place] [address] Oct, [facility] [place] [facility] [address] [id number] [place] [address] Oct, [facility] [place] [facility] [address] [id number] [place] [address] Oct, [facility] [place] [facility] [address] [id number] [place] [address] Oct, [facility] [place] [facility] [address] [id number] [place] [address] 14 Oct, 2013 [facility] [place] [facility] [address] [id number] [place] [address] Oct, [facility] [place] [facility] [address] [id number] [place] [address] Oct, [facility] [place] [facility] [address] [id number] [place] [address] Oct, [facility] [place] [facility] [address] [id number] [place] [address] Oct, [facility] [place] [facility] [address] [id number] [place] [address] Oct, [facility] [place] [facility] [address] [id number] [place] [address] Oct, [facility] [place] [facility] [address] [id number] [place] [address] Sep, [facility] [place] [facility] [address] [id number] [place] [address] Sep, [facility] [place] [facility] [address] [id number] [place] [address] Sep, [facility] [place] [facility] [address] [id number] [place] [address] Sep, [facility] [place] [facility] [address] [id number] [place] [address] Sep, [facility] [place] [facility] [address] [id number] [place] [address] Sep, [facility] [place] [facility] [address] [id number] [place] [address] Sep, [facility] [place] [facility] [address] [id number] [place] [address] Sep, [facility] [place] [facility] [address] [id number] [place] [address] Sep, [facility] [place] [facility] [address] [id number] [place] [address] Sep, [facility] [place] [facility] [address] [id number] [place] [address] Aug, [facility] [place] [facility] [address] [id number] [place] [address] Aug, [facility] [place] [facility] [address] [id number] [place] [address] Jul, [facility] [place] [facility] [address] [id number] [place] [address] Jul, [facility] [place] [facility] [address] [id number] [place] [address] 13 Jul, 2013 [facility] [place] [facility] [address] [id number] [place] [address] Jul, [facility] [place] [facility] [address] [id number] [place] [address] Jul, [facility] [place] [facility] [address] [id number] [place] [address] Jul, [facility] [place] [facility] [address] [id number] [place] [address] Jul, [facility] [place] [facility] [address] [id number] [place] [address] Jul, [facility] [place] [facility] [address] [id number] [place] [address] Jul, [facility] [place] [facility] [address] [id number] [place] [address] Jul, [facility] [place] [facility] [address] [id number] [place] [address] Jul, [facility] [place] [facility] [address] [id number] [place] [address] Jul, [facility] [place] [facility] [address] [id number] [place] [address] Jul, [facility] [place] [facility] [address] [id number] [place] [address] Jul, [facility] [place] [facility] [address] [id number] [place] [address] Jul, [facility] [place] [facility] [address] [id number] [place] [address] Jul, [facility] [place] [facility] [address] [id number] [place] [address] Jul, [facility] [place] [facility] [address] [id number] [place] [address] Jul, [facility] [place] [facility] [address] [id number] [place] [address] Jul, [facility] [place] [facility] [address] [facility] [id number] [place] [address] 16 Jun, 2012 [facility] [place] [facility] [address] [id number] [place] [address] 16 Jun, 2012 [facility] [place] [facility] [address] [id number] [place] [address] 16 Jun, 2012 [facility] [place] [facility] [address] [id number] [place] [address] 16 Jun, 2012 [facility] [place] [facility] [address] [id number] [place] [address] 16 Jun, 2012 [facility] [place] [facility] [address] [id number] [place] [address] 16 Jun, 2012 [facility] [place] [facility] [address] [id number] [place] [address] 10 Jun, 2012 [facility] [place] [facility] [address] [id number] [place] [address] 10 Jun, 2012 [facility] [place] [facility] [address] [id number] [place] [address] 09 Jun, 2012 [facility] [place] [facility] [address] [id number] [place] [address] 09 Jun, 2012 [facility] [place] [facility] [address] [id number] [place] [address] Jun, 2012 [facility] [place] [facility] [address] [id number] [place] [address] 26 Sep, 2012 [facility] [place] [facility] [address] [id number] [place] [address] 25 Sep, 2012 [facility] [place] [facility] [address] [facility] [id number] [place] [address] 19 Sep, 2012 [facility] [place] [facility] [address] [id number] [place] [address] 17 Sep, 2012 [facility] [place] [facility] [address] [id number] [place] [address] 11 Sep, 2012 [facility] [place] [facility] [address] [id number] [place] [address] 10 Sep, 2012 [facility] [place] [facility] [address] [id number] [place] [address] May, [facility] [place] [facility] [address] [id number] [place] [address] May, [facility] [place] [facility] [address] [id number] [place] [address] Apr, [facility] [place] [facility] [address] [id number] [place] [address] Apr, [facility] [place] [facility] [address] [facility] [id number] [place] [address] Apr, [facility] [place] [facility] [address] [id number] [place] [address] Apr, [facility] [place] [facility] [address] [id number] [place] [address] Apr, [facility] [place] [facility] [address] [id number] [place] [address] Mar, [facility] [place] [facility] [address] [id number] [place] [address] Mar, [facility] [place] [facility] [address] [id number] [place] [address] Mar, [facility] [place] [facility] [address] [id number] [place] [address] Mar, [facility] [place] [facility] [address] [id number] [place] [address] Mar, [facility] [place] [facility] [address] [id number] [place] [address] Mar, [facility] [place] [facility] [address] [id number] [place] [address] Mar, [facility] [place] [facility] [address] [id number] [place] [address] Mar, [facility] [place] [facility] [address] [id number] [place] [address] Feb, [facility] [place] [facility] [address] [id number] [place] [address] Feb, [facility] [place] [facility] [address] [facility] [id number] [place] [address] January, [facility] [place] [facility] [address] [id number] [place] [address] January, [facility] [place] [facility] [address] [id number] [place] [address] Dec, [facility] [place] [facility] [address] [id number] [place] [address] Dec, [facility] [place] [facility] [address] [id number] [place] [address] Nov, [facility] [place] [facility] [address] [id number] [place] [address] Nov, [facility] [place] [facility] [address] [id number] [place] [address] Nov, [facility] [place] [facility] [address] [id number] [place] [address] Nov, [facility] [place] [facility] [address] [id number] [place] [address] Oct, [facility] [place] [facility] [address] [id number] [place] [address] Oct, [facility] [place] [facility] [address] [id number] [place] [address] Oct, [facility] [place] [facility] [address] [id number] [place] [address] 26 Oct, 2012 [facility] [place] [facility] [address] [id number] [place] [address] 16 Oct, 2012 [facility] [place] [facility] [address] [id number] [place] [address] 14 Oct, 2012 [facility] [place] [facility] [address] [id number] [place] [address] 08 Oct, 2012 [facility] [place] [facility] [address] [id number] [place] [address] 07 Oct, 2012 [facility] [address] [id number] [place] [address] 03 Oct, 2012 [facility] [place] [facility] [address] [id number] [place] [address] 30 Sep, 2012 [facility] [place] [facility] [address] [id number] [place] [address] Sep, [facility] [place] [facility] [address] [id number] [place] [address] Sep, [facility] [place] [facility] [address] [id number] [place] [address] Sep, [facility] [place] [facility] [address] [id number] [place] [address] Sep, [facility] [place] [facility] [address] [id number] [place] [address] Sep, [facility] [id number] [place] [address] Sep, [facility] [place] [facility] [address] [id number] [place] [address] 08 Sep, 2012 [facility] [address] [id number] [place] [address] Aug, [facility] [place] [facility] [address] [id number] [place] [address] 31 Aug, 2012 [facility] [address] [id number] [place] [address] Aug, [facility] [place] [facility] [address] [id number] [place] [address] Aug, [facility] [place] [facility] [address] [id number] [place] [address] Aug, [facility] [place] [facility] [address] [id number] [place] [address] Aug, [facility] [place] [facility] [address] [id number] [place] [address] 18 Aug, 2012 [facility] [place] [facility] [address] [id number] [place] [address] Aug, [facility] [place] [facility] [address] [id number] [place] [address] Jul, [facility] [place] [facility] [address] [id number] [place] [address] Jul, [facility] [place] [facility] [address] [id number] [place] [address] Jul, [facility] [place] [facility] [address] [id number] [place] [address] Jul, [facility] [place] [facility] [address] [id number] [place] [address] Jul, [facility] [place] [facility] [address] [id number] [place] [address] Jul, [facility] [address] [id number] [place] [address] Jun, [facility] [address] [id number] [place] [address] Jun, [facility] [address] [id number] [place] [address] Jun, [facility] [address] [id number] [place] [address] Jun, [facility] [address] [id number] [place] [address] Jun, [facility] [address] [id number] [place] [address] Jun, [facility] [address] [id number] [place] [address] Jun, [facility] [address] [id number] [place] [address] Jun, [facility] [address] [id number] [place] [address] Jun, [facility] [address] [id number] [place] [address] 26 May, 2012 [facility] [address] [id number] [place] [address] 24 May, 2012 [facility] [address] [id number] [place] [address] May, [facility] [address] [id number] [place] [address] Apr, [facility] [address] [id number] [place] [address] Apr, [facility] [address] [id number] [place] [address] Apr, [facility] [address] [id number] [place] [address] Apr, [facility] [address] [id number] [place] [address] Apr, [facility] [address] [id number] [place] [address] Apr, [facility] [address] [id number] [place] [address] Mar, [facility] [address] [id number] [place] [address] Mar, [facility] [address] [id number] [place] [address] Mar, [facility] [address] [id number] [place] [address] Mar, [facility] [address] [id number] [place] [address] Feb, [facility] [address] [id number] [place] [address] Feb, [facility] [address] [id number] [place] [address] Feb, [facility] [address] [id number] [place] [address] Feb, [facility] [address] [id number] [place] [address] Feb[facility] [address] [id number] [place] [address] January, [facility] [address] [id number] [place] [address] January, [facility] [address] [id number] [place] [address] January, [facility] [address] [id number] [place] [address] January, [facility] [address] [id number] [place] [address] January, [facility] [address] [id number] [place] [address] January, [facility] [address] [id number] [place] [address] Dec, [facility] [address] [id number] [place] [address] Dec, [facility] [address] [id number] [place] [address] Dec, [facility] [address] [id number] [place] [address] Dec, [facility] [address] [id number] [place] [address] Dec, [facility] [address] [id number] [place] [address] Nov, [facility] [address] [id number] [place] [address] Nov, [facility] [address] [id number] [place] [address] Nov, [facility] [address] [id number] [place] [address] Nov, [facility] [address] [id number] [place] [address] Oct, [facility] [address] [id number] [place] [address] 28 Oct, 2011 [facility] [address] [id number] [place] [address] Oct, [facility] [address] [id number] [place] [address] Oct, [facility] [address] [id number] [place] [address] Oct, [facility] [address] [id number] [place] [address] Sep, [facility] [address] [id number] [place] [address] Sep, [facility] [address] [id number] [place] [address] Sep, [facility] [address] [id number] [place] [address] Sep, [facility] [address] [id number] [place] [address] Sep, [facility] [address] [id number] [place] [address] Sep, [facility] [address] [id number] [place] [address] Aug, [facility] [address] [id number] [place] [address] Aug, [facility] [address] [id number] [place] [address] Aug, [facility] [address] [id number] [place] [address] Jul, [facility] [id number] [place] [address] Jul, [facility] [address] [id number] [place] [address] Jul, [facility] [address] [id number] [place] [address] Jul, [facility] [address] [id number] [place] [address] 31 Jun, 2011 [facility] [address] [id number] [place] [address] 31 Jun, 2011 [facility] [address] [id number] [place] [address] 18 Jun, 2011 [facility] [address] [id number] [place] [address] 10 Jun, 2011 [facility] [address] [id number] [place] [address] 10 Jun, 2011 [facility] [address] [id number] [place] [address] 10 Jun, 2011 [facility] [address] [id number] [place] [address] Mar, [facility] [address] [id number] [place] [address] 18 Dec, 2010 [facility] [address] [id number] [place] [address] Dec, [facility] [address] [id number] [place] [address] 18 Nov, 2010 [facility] [address] [id number] [place] [address] 16 Nov, 2010 [facility] [address] [id number] [place] [address] Sep, [facility] [address] [id number] [place] [address] Aug, [facility] [address] [id number] [place] [address] Aug, [facility] [address] [id number] [place] [address] Aug, [facility] [address] [id number] [place] [address] Aug, [facility] [address] [id number] [place] [address] Aug, [facility] [address] [id number] [place] [address] 14 Aug, 2010 [facility] [address] [id number] [place] [address] 08 Aug, 2010 [facility] [address] [id number] [place] [address] 08 Aug, 2010 [facility] [address] [id number] [place] [address] 07 Aug, 2010 [facility] [address] [id number] [place] [address] Aug, [facility] [address] [id number] [place] [address] Aug, [facility] [address] [id number] [place] [address] Aug, [facility] [address] [id number] [place] [address] Jul, [facility] [address] [id number] [place] [address] Jul, [facility] [address] [id number] [place] [address] Jul, [facility] [address] [id number] [place] [address] Jul, [facility] [address] [id number] [place] [address] Jul, [facility] [address] [id number] [place] [address] Jul, [facility] [address] [id number] [place] [address] Jun, [facility] [address] [id number] [place] [address] Jun, [facility] [address] [id number] [place] [address] Jun, [facility] [address] [id number] [place] [address] 13 Jun, 2010 [facility] [address] [id number] [place] [address] 16 Apr, 2010 [facility] [address] [id number] [place] [address] Mar, [facility] [address] [id number] [place] [address] Feb, [facility] [address] [id number] [place] [address] January, [facility] [address] [id number] [place] [address] 15 Dec, 2009 [facility] [address] [id number] [place] [address] Nov, [facility] [address] [id number] [place] [address] 31 Aug, 2009 [facility] [address] [id number] [place] [address] Aug, [facility] [address] [id number] [place] [address] Aug, [facility] [address] [id number] [place] [address] Jul, [facility] [address] [id number] [place] [address] Jul, [facility] [address] [id number] [place] [address] 07 Jul, 2009 [facility] [address] [id number] [place] [address] 30 Jun, 2009 [facility] [address] [id number] [place] [address] 29 Jun, 2009 [facility] [address] [id number] [place] [address] Jun, [facility] [address] [id number] [place] [address] 22 Jun, 2009 [facility] [address] [id number] [place] [address] Jun, [facility] [id number] [place] [address] Jun, [facility] [address] [id number] [place] [address] Apr, [facility] [id number] [place] [address] Apr, [facility] [id number] [place] [address] Feb, [facility] [address] [address] January, [facility] [address] [id number] [place] [address] Dec, IMMUNIZATIONS No Known Immunizations SOCIAL HISTORY [...] obesity Medical History skin cancer-basal cell R roman catholic (removed ) Medical History Arthritis Medical History [...] History inability to urinate 09/16/15 Hospitalization History [facility] health ea rly 2000's Hospitalization History hyperkalemia 10/2017 Hospitalization History fluid in lung
--- OUTSIDE RECORDS SUMMARY | 2020-03-01 16:47 | XMS REPORT ---
Author Michele Fuentes Organization [facility] Address [address] [place] [address] Care Team Providers Care Dispute Resolution Analyst Name Role Phone ROSELINE LUIS Unavailable PROBLEMS Type Condition ICD9-CM Code SIU17-JE Code Onset Dates Condition S tatus SNOMED Code Problem DM neuro manif type II E11.49 Active 77955682 Problem Chronic pain G89.29 Active 2180477 1 Problem Diabetes E11.9 Active 53585785 Problem Reactive airway disease J45.909 Active 271857014032 Problem Leukocytosis D72.829 Active 7799341 06 Problem Insomnia, unspecified type G47.00 Act sharon 904975501 Problem Bipolar I disorder, most recent episode (or curr ent) mixed, moderate F31.62 Active 35779356 Problem Primary osteoarthritis of right knee M17.11 Active 445403571233223 Problem Cough R05 Active 80539437 Problem Pure hypercholesterolemia E78.00 Acti ve 842351318 Problem Dysuria R30.0 Active 57538485 Problem Benign prostatic hyperplasia with lower urinary tract symptoms, unspecified morphology N40.1 Active 54376 6007 Problem Eustachian tube dysfunction, unspecified laterality H69.80 Active 15441954 Problem Polyneuropathy associated with underlying disease G63 Active 839168537 Problem Diabetic polyneuropathy associated with type 2 d iabetes mellitus E11.42 Active 82929644 Problem Anemia of chronic illness D63.8 Acti ve 857969869 Problem Chronic lymphocytic leukemia C91.10 A ctive 47599218 Problem Bilateral primary osteoarthritis of knee M17.0 Active 656282684 Problem 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 Active 576002487 Problem Eye exam abnormal R93.8 Active 16 6005118 Problem Retinal edema H35.81 Active 528900 6 Problem Lymphocytosis D72.820 Active 942402 09 Problem Bipolar disorder, in partial remission, most rec ent episode depressed F31.75 Active 26744859 Problem Hypokalemia E87.6 Active 28388961 Problem Falling R29.6 Active 015535833 Problem Pressure ulcer of other site, stage 3 L89.893 Active 064835402 Problem Other iron deficiency anemia D50.8 A ctive 19068867 Problem Mild cognitive impairment G31.84 Acti ve 904056858 Problem Skin cancer C44.90 Active 56201099 7 Problem 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.4 Active 984845628 Problem Morbid obesity E66.01 Active 30859 6002 Problem Mood disorder F39 Active 549326 05 Problem Anxiety F41.9 Active 70500916 Problem Essential hypertension I10 Active 63536436 Problem Bipolar disorder F31.9 Active 137 80240 Problem Chronic diastolic (congestive) heart failure I50.3 2 Active 229078997 Problem Psychophysiological insomnia F51.04 A ctive 435204754 Problem Type 2 diabetes mellitus with diabetic neuropathy, uns pecified E11.40 Active 29683200 ALLERGIES No Information ENCOUNTERS Encounter Location Date Diagnosis [place] [address] [address] Dec, [place] [address] [address] Dec, [facility] [address] [address] Nov, [facility] [address] [address] Nov, [place] [address] [address] Nov, [facility] [address] [address] Oct, Chronic pain G89.29 [facility] [address] [address] Oct, [place] [address] [address] Oct, Mood disorder F39 [facility] [address] [address] Oct, [place] [address] [id number] [place] [address] 10 Oct, 2019 Bipolar disorder, in partial remission, most recent episode depressed F31.75 and Mild cognitive impairment G31.84 [facility] [address] [id number] [place] [address] 04 Oct, 2019 Mood disorder F39 [facility] [address] [id number] [place] [address] 28 Sep, 2019 [facility] [address] [place] [id number] [place] [address] Sep, Mood disorder F39 [facility] [address] [place] [id number] [place] [address] Sep, Bipolar disorder, in partial remission, most recent episode depressed F31.75 and Mild cognitive impairment G31.84 [facility] [address] [place] [id number] [place] [address] 06 Sep, 2019 Mood disorder F39 [facility] [address] [place] [id number] [place] [address] Sep, [facility] [address] [id number] [place] [address] Sep, Mood disorder F39 [facility] [address] [place] [id number] [place] [address] Sep, [facility] [address] [id number] [place] [address] Aug, Mood disorder F39 [facility] [address] [place] [id number] [place] [address] Aug, [facility] [address] [id number] [place] [address] Aug, [facility] [address] [place] [id number] [place] [address] Aug, [facility] [address] [id number] [place] [address] Aug, [facility] [address] [place] [id number] [place] [address] Aug, [facility] [address] [place] [id number] [place] [address] Aug, [facility] [address] [address] Aug, [facility] [address] [address] Aug, Essential hypertension I10 [facility] [address] [address] Aug, Bipolar disorder, in partial remission, most recent episode depressed F31.75 and Mild cognitive impairment G31.84 [facility] [address] [address] Aug, Mood disorder F39 [facility] [address] [address] Aug, [facility] [address] [address] Aug, Bipolar disorder, in partial remission, most recent episode depressed F31.75 and Mild cognitive impairment G31.84 [facility] [address] [address] Jul, Bipolar disorder, in partial remission, most recent episode depressed F31.75 and Mild cognitive impairment G31.84 [facility] [address] [address] Jul, Psychophysiological insomnia F51.04 [facility] [address] [address] Jul, [facility] [address] [address] Jul, [facility] [address] [address] Jul, [facility] [address] [address] Jul, [facility] [address] [address] Jul, [place] [address] [address] Jul, [place] [address] [address] Jul, Bipolar disorder, in partial remission, most recent episode depressed F31.75 and Mild cognitive impairment G31.84 [place] [address] [address] Jul, Chronic pain G89.29 ; Diabetes E11.9 ; E ssential hypertension I10 ; Ill feeling R68.89 ; Local infection of the skin and subcutaneous tissue, unspecified L08.9 and Other injury of unspecified body region, initial encounter T14.8XXA [place] [address] [address] Jun, Bipolar disorder, in partial remission, most recent episode depressed F31.75 and Mild cognitive impairment G31.84 [place] [address] [address] Jun, [place] [address] [address] Jun, Bipolar disorder, in partial remission, most recent episode depressed F31.75 and Mild cognitive impairment G31.84 [place] [address] [address] Jun, Psychophysiological insomnia F51.04 [place] [address] [address] Jun, Psychophysiological insomnia F51.04 ; Ch ronic pain G89.29 ; Bipolar I disorder, most recent episode (or current) mixed, moderate F31.62 ; 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 ; Polyneuropathy associated with underlying disease G63 ; Type 2 diabetes mellitus with diabetic neuropathy, unspecified E11.40 ; FPC (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 Z79.4 and Hyperglycemia R73.9 [place] [address] [address] Jun, Bipolar disorder, in partial remission, most recent episode depressed F31.75 and Mild cognitive impairment G31.84 [facility] [address] [address] Jun, [facility] [address] [address] Jun, Bipolar disorder F31.9 [facility] [address] [address] May, Bipolar disorder, in partial remission, most recent episode depressed F31.75 and Mild cognitive impairment G31.84 [facility] [address] [address] May, [facility] [address] [address] Apr, Chronic pain G89.29 and Bipolar disorder F31.9 [facility] [address] [address] Mar, Bipolar disorder F31.9 and Chronic pain G89.29 [facility] [address] [address] Feb, Bipolar disorder F31.9 [facility] [address] [address] Feb, Cellulitis of right upper extremity L03. 113 and Skin abrasion T14.8XXA [facility] [address] [address] Feb, Bipolar disorder, in partial remission, most recent episode depressed F31.75 and Mild cognitive impairment G31.84 [facility] [address] [address] Feb, Chronic pain G89.29 [facility] [address] [address] Feb, Bipolar disorder, in partial remission, most recent episode depressed F31.75 and Mild cognitive impairment G31.84 [facility] [address] [place] [id number] [place] [address] January, Bipolar disorder, in partial remission, most recent episode depressed F31.75 and Mild cognitive impairment G31.84 [facility] [address] [place] [id number] [place] [address] January, Chronic pain G89.29 and Bipolar disorder F31.9 [facility] [address] [address] January, Bipolar disorder, in partial remission, most recent episode depressed F31.75 and Mild cognitive impairment G31.84 [facility] [address] [place] [id number] [place] [address] Dec, [facility] [address] [address] Dec, Chronic pain G89.29 and Bipolar disorder F31.9 [facility] [address] [address] Dec, Edema of both lower extremities R60.0 [facility] [address] [address] Dec, Bipolar disorder F31.9 [facility] [address] [address] Dec, Bipolar disorder, in partial remission, most recent episode depressed F31.75 and Mild cognitive impairment G31.84 [facility] [address] [place] [id number] [place] [address] Nov, [facility] [address] [address] Nov, Chronic pain G89.29 [facility] [address] [address] Nov, Bipolar disorder, in partial remission, most recent episode depressed F31.75 and Mild cognitive impairment G31.84 [facility] [address] [place] [id number] [place] [address] Nov, Bipolar disorder F31.9 [place] [address] [address] 04 Nov, 2018 Encounter for Medicare annual [...] unspecified morphology N40.1 and Essential hypertension I10 [address] [address] 21 Oct, 2018 Chronic pain G89.[address] [address] 18 Oct, 2018 Diabetes E11.[address] [address] Oct, Bipolar I disorder, most recent episode (or current) mixed, moderate F31.62 and Mild cognitive impairment G31.[address] [address] Oct, Bipolar I disorder, most recent episode (or current) mixed, moderate F31.62 and Mild cognitive impairment G31.[address] [address] Sep, Bipolar I disorder, most recent episode (or current) mixed, moderate F31.62 and Mild cognitive impairment G31.[address] [address] Sep, [address] [address] Sep, Diabetes E11.9 ; Hypoxia R09.02 ; Hyperg lycemia R73.9 ; Therapeutic drug monitoring Z51.81 ; BMI 50.0-59.9, adult Z68.43 and Skin cancer C44.90 [place] [address] [address] Sep, Chronic pain G89.29 [facility] [address] [place] [address] Sep, Bipolar I disorder, most recent episode (or current) mixed, moderate F31.62 [place] [address] [address] Sep, [place] [address] [address] Sep, [place] [address] [address] Aug, Chronic pain G89.29 [place] [address] [address] Aug, Bipolar I disorder, most recent episode (or current) mixed, moderate F31.62 [place] [address] [address] Aug, Bipolar I disorder, most recent episode (or current) mixed, moderate F31.62 and Mild cognitive impairment G31.84 [place] [address] [address] Jul, [place] [address] [address] Jul, Chronic pain G89.29 [place] [address] [address] Jul, Bipolar I disorder, most recent episode (or current) mixed, moderate F31.62 and Mild cognitive impairment G31.84 [place] [address] [address] Jul, Bipolar I disorder, most recent episode (or current) mixed, moderate F31.62 and MCI (mild cognitive impairment) G31.84 [place] [address] [address] Jul, [facility] [address] [place] [id number] [place] [address] Jul, [facility] [address] [place] [id number] [place] [address] Jul, Bipolar I disorder, most recent episode (or current) mixed, moderate F31.62 [facility] [address] [place] [id number] [place] [address] Jul, Chronic pain G89.29 [facility] [address] [address] Jun, Bipolar I disorder, most recent episode (or current) mixed, moderate F31.62 [place] [address] [address] Jun, Pre-procedure lab exam Z01.812 [place] [id number] [place] [address] Jun, [facility] [place] [address] [facility] [place] [id number] Jun, [facility] [address] [place] [id number] [place] [address] Jun, [place] [address] [place] [id number] [place] [address] Jun, Forgetfulness R68.89 ; Pre-syncope R55 ; Localized edema R60.0 ; Other iron deficiency anemia D50.8 and BMI 50.0-59.9, adult Z68.43 [facility] [address] [place] [id number] [place] [address] Jun, Chronic pain G89.29 [facility] [address] [place] [id number] [place] [address] Jun, Chronic pain G89.29 [facility] [address] [place] [id number] [place] [address] Jun, Bipolar I disorder, most recent episode (or current) mixed, moderate F31.62 [facility] [address] [address] May, Chronic pain G89.29 [place] [address] [address] Apr, [place] [address] [address] Apr, Chronic pain G89.29 [place] [address] [address] Apr, Primary osteoarthritis of right knee M17 .[address] [address] Mar, [address] [address] Mar, BMI 50.0-59.9, adult Z68.43 and Bipolar disorder, in partial remission, most recent episode depressed F31.[address] [address] Mar, Diabetes E11.9 ; Pure hypercholesterolem ia E78.00 ; Essential hypertension I10 ; Nausea with vomiting, unspecified R11.2 and Headache, unspecified headache type R51 [place] [address] [address] Mar, Bipolar I disorder, most recent episode (or current) mixed, moderate F31.[address] [address] Mar, Bipolar I disorder, most recent episode (or current) mixed, moderate F31.62 [place] [address] [address] Mar, Chronic pain G89.[address] [address] Mar, Bipolar I disorder, most recent episode (or current) mixed, moderate F31.[address] [address] Feb, Bipolar I disorder, most recent episode (or current) mixed, moderate F31.62 [place] [address] [address] 14 Feb, 2018 Chronic pain G89.29 [place] [address] [address] Feb, Decubitus ulcer of right foot, stage 3 L 89.893 and BMI 50.0-59.9, adult Z68.43 [place] [address] [address] Feb, Bipolar I disorder, most recent episode (or current) mixed, moderate F31.62 [place] [address] [address] Feb, [place] [address] [address] January, [place] [address] [address] January, Chronic pain G89.29 [place] [address] [address] January, Bipolar I disorder, most recent episode (or current) mixed, moderate F31.62 [place] [address] [address] January, Bipolar I disorder, most recent episode (or current) mixed, moderate F31.62 [place] [address] [address] Dec, Bipolar I disorder, most recent episode (or current) mixed, moderate F31.62 and BMI 50.0-59.9, adult Z68.43 [place] [address] [address] Dec, Bipolar I disorder, most recent episode (or current) mixed, moderate F31.62 [place] [address] [address] Dec, Chronic pain G89.29 [facility] [address] [address] Dec, DM neuro manif type II E11.49 ; Right fl ank pain R10.9 ; 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 ; Encounter for medication monitoring Z51.81 and BMI 50.0-59.9, adult Z68.43 [place] [address] [address] 04 Dec, 2017 Bipolar I disorder, most recent episode (or current) mixed, moderate F31.62 [place] [address] [address] Nov, Bipolar I disorder, most recent episode (or current) mixed, moderate F31.62 [place] [address] [address] Nov, Chronic pain G89.29 [place] [address] [address] Nov, Bipolar I disorder, most recent episode (or current) mixed, moderate F31.62 [place] [address] [address] Nov, Hypokalemia E87.6 [place] [address] [address] Nov, Bipolar I disorder, most recent episode (or current) mixed, moderate F31.62 [place] [address] [address] Oct, Chronic pain G89.29 [place] [address] [address] Oct, BMI 50.0-59.9, adult Z68.43 and Bipolar I disorder, most recent episode (or current) mixed, moderate F31.62 [place] [address] [address] Oct, Bipolar I disorder, most recent episode (or current) mixed, moderate F31.62 [facility] [address] [address] Oct, [place] [address] [address] Oct, Hypokalemia E87.6 [place] [address] [address] Oct, DM neuro manif type II E11.49 [place] [address] [address] Oct, Bipolar I disorder, most recent episode (or current) mixed, moderate F31.62 [place] [address] [address] Oct, Bipolar I disorder, most recent episode (or current) mixed, moderate F31.62 [place] [address] [address] 14 Oct, 2017 Hyperkalemia E87.5 ; Falling R29.6 ; BMI 50.0-59.9, adult Z68.43 and Acute left ankle pain M25.572 [place] [address] [address] Oct, DM neuro manif type II E11.49 [place] [address] [address] Oct, [place] [address] [address] Sep, Chronic pain G89.29 [place] [address] [address] Sep, [address] [address] Sep, Bilateral primary osteoarthritis of knee M17.0 [place] [address] [address] Sep, Generalized edema R60.1 [place] [id number] [place] [address] Sep, Bipolar I disorder, most recent episode (or current) mixed, moderate F31.62 [place] [address] [address] 15 Sep, 2017 Hypoxia R09.02 ; Other hypervolemia E87. 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 ; Anemia of chronic illness D63.8 and BMI 50.0-59.9, adult Z68.43 [place] [address] [address] Sep, [address] [address] Sep, Bipolar I disorder, most recent episode (or current) mixed, moderate F31.62 [place] [address] [address] Aug, Chronic pain G89.29 [place] [address] [address] Aug, Generalized edema R60.[address] [address] Aug, [place] [address] [address] 18 Aug, [address] [address] 14 Aug, 2017 Bipolar I disorder, most recent episode (or current) mixed, moderate F31.62 [place] [address] [address] 07 Aug, 2017 Bipolar I disorder, most recent episode (or current) mixed, moderate F31.62 [place] [address] [address] 04 Aug, 2017 Chronic pain G89.[address] [address] Jul, Bipolar I disorder, most recent episode (or current) mixed, moderate F31.62 [place] [address] [place] [address] Jul, Bipolar I disorder, most recent episode (or current) mixed, moderate F31.62 and BMI 60.0-69.9, adult Z68.44 [place] [address] [place] [address] Jul, Bipolar I disorder, most recent episode (or current) mixed, moderate F31.62 [place] [address] [place] [address] Jul, Chronic pain G89.29 [place] [address] Jul, Bipolar I disorder, most recent episode (or current) mixed, moderate F31.62 [place] [address] [address] Jun, Polyneuropathy associated with underlyin g disease G63 and Diabetes E11.9 [place] [address] Jun, Bipolar I disorder, most recent episode (or current) mixed, moderate F31.62 [place] [address] [address] Jun, Chronic pain G89.29 [place] [address] [address] May, Bipolar I disorder, most recent episode (or current) mixed, moderate F31.62 [place] [address] May, Bipolar I disorder, most recent episode (or current) mixed, moderate F31.62 [place] [address] [place] [address] May, Diabetic polyneuropathy associated with type 2 diabetes mellitus E11.42 [facility] [address] [address] 18 May, 2017 Bipolar I disorder, most recent episode (or current) mixed, moderate F31.62 [facility] [address] [address] 13 May, 2017 Bipolar I disorder, most recent episode (or current) mixed, moderate F31.62 [facility] [address] [address] 12 May, 2017 Chronic pain G89.29 [facility] [address] [address] 30 Apr, 2017 Bipolar I disorder, most recent episode (or current) mixed, moderate F31.62 [facility] [address] [address] Apr, [place] [address] [address] Apr, Chronic pain G89.29 and DM neuro manif t ype II E11.49 [facility] [address] [address] Apr, [facility] [address] [address] Apr, Bipolar I disorder, most recent episode (or current) mixed, moderate F31.62 [facility] [address] [address] Apr, Chronic pain G89.29 [facility] [address] [address] Apr, Iliotibial band syndrome, left M76.32 [facility] [address] [address] Apr, Bipolar I disorder, most recent episode (or current) mixed, moderate F31.62 [facility] [address] [address] Mar, Bipolar I disorder, most recent episode (or current) mixed, moderate F31.62 [facility] [address] [address] Mar, Bipolar I disorder, most recent episode (or current) mixed, moderate F31.62 [facility] [address] [address] Mar, [facility] [address] [address] Mar, Bipolar I disorder, most recent episode (or current) mixed, moderate F31.62 [place] [address] [address] Mar, Chronic pain G89.29 [place] [address] [address] Mar, Bipolar I disorder, most recent episode (or current) mixed, moderate F31.62 [place] [address] [address] Mar, Bipolar I disorder, most recent episode (or current) mixed, moderate F31.62 [place] [address] [address] Mar, Acute pain of left knee M25.562 ; Left h ip pain M25.552 ; Generalized edema R60.1 and Tongue swelling R22.0 [place] [address] [address] Mar, [facility] [address] [address] Feb, Chronic pain G89.29 [facility] [address] [address] Feb, Diabetes E11.9 [place] [address] [address] January, Chronic pain G89.29 [place] [address] [address] January, [place] [address] [address] January, Bipolar I disorder, most recent episode (or current) mixed, moderate F31.62 [place] [address] [address] Dec, Bipolar I disorder, most recent episode (or current) mixed, moderate F31.62 [place] [address] [address] Dec, Chronic pain G89.29 [place] [address] [address] Dec, Bipolar I disorder, most recent episode (or current) mixed, moderate F31.62 [place] [address] [address] Dec, Diabetes E11.9 ; Essential hypertension I10 ; Chronic pain G89.29 and Morbid obesity E66.01 [place] [address] [address] Dec, [place] [address] [address] Dec, Bipolar I disorder, most recent episode (or current) mixed, moderate F31.62 [place] [address] [address] Dec, Bipolar I disorder, most recent episode (or current) mixed, moderate F31.62 [place] [address] [address] Nov, Chronic pain G89.29 [facility] [address] [address] Nov, Bipolar I disorder, most recent episode (or current) mixed, moderate F31.62 [place] [address] [address] Nov, [place] [address] [address] Nov, Bipolar I disorder, most recent episode (or current) mixed, moderate F31.62 [facility] [address] [address] Nov, Bipolar I disorder, most recent episode (or current) mixed, moderate F31.62 [facility] [address] [address] Nov, [facility] [address] [address] Nov, [facility] [address] [address] Nov, [place] [address] [address] Oct, Chronic pain G89.29 [place] [address] [address] Oct, Bipolar I disorder, most recent episode (or current) mixed, moderate F31.62 [place] [address] [address] Oct, [place] [address] [address] Oct, Chronic pain G89.29 ; Diabetes E11.9 ; A nxiety F41.9 and 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 [place] [address] [address] Oct, [facility] [address] [address] Oct, Diabetes E11.9 [facility] [address] [address] Oct, Bipolar I disorder, most recent episode (or current) mixed, moderate F31.62 [facility] [address] [address] Sep, Chronic pain G89.29 [facility] [address] [address] Sep, Chronic pain G89.29 [facility] [address] [address] Aug, Chronic pain G89.29 [facility] [address] [address] Jul, [facility] [address] [address] Jul, Diabetes E11.9 [facility] [address] [address] Jul, Chronic pain G89.29 [facility] [address] [address] Jul, Bipolar I disorder, most recent episode (or current) mixed, moderate F31.62 [place] [address] [address] Jun, Bipolar I disorder, most recent episode (or current) mixed, moderate F31.62 [facility] [address] [address] Jun, [facility] [address] [address] Jun, Bipolar I disorder, most recent episode (or current) mixed, moderate F31.62 [place] [address] [address] May, Insomnia, unspecified type G47.00 [facility] [address] [address] May, Bipolar I disorder, most recent episode (or current) mixed, moderate F31.62 [facility] [address] [address] 14 May, 2016 [facility] [address] [address] 08 May, 2016 Bipolar I disorder, most recent episode (or current) mixed, moderate F31.62 [place] [address] [address] May, Diabetes E11.9 and Essential hypertensio n I10 [place] [address] [address] Apr, Chronic pain G89.29 [place] [address] [address] Apr, Bipolar I disorder, most recent episode (or current) mixed, moderate F31.62 [place] [address] [address] Apr, [place] [address] [address] Apr, [place] [address] [address] Mar, Chronic pain G89.29 ; Headache, unspecif ied headache type R51 ; Neuropathy G62.9 ; Pain of right hip joint M25.551 and Essential hypertension I10 [place] [address] [address] Mar, Chronic pain G89.29 [place] [address] [address] Mar, Bipolar I disorder, most recent episode (or current) mixed, moderate F31.62 [place] [address] [address] Feb, Bipolar I disorder, most recent episode (or current) mixed, moderate F31.62 and Insomnia, unspecified type G47.00 [place] [address] [address] Feb, Chronic pain G89.29 [place] [address] [address] Feb, Bipolar I disorder, most recent episode (or current) mixed, moderate F31.62 [place] [address] [address] January, Bipolar I disorder, most recent episode (or current) mixed, moderate F31.62 [place] [address] [address] January, Chronic pain G89.29 [place] [address] [address] January, Chronic pain G89.29 and Essential hypert ension I10 [place] [address] [address] January, Bipolar I disorder, most recent episode (or current) mixed, moderate F31.62 [place] [address] [address] Dec, [place] [address] [address] Dec, [address] [address] Dec, [place] [address] [address] Dec, [place] [address] [address] Nov, Reactive airway disease J45.[address] [address] Nov, [address] [address] Nov, [place] [address] [address] Nov, [place] [address] [address] Nov, [address] [address] Nov, Onychomycosis B35.1 ; Hammertoe M20.40 ; [place] or callus L84 and DM neuro manif type II E11.49 [id number] [place] [address] Nov, Chronic pain G89.29 ; Leukocytosis D72.8 29 and Diabetes E11.9 [place] [address] [address] Nov, [place] [address] [address] Oct, Bronchitis J40 [place] [address] [address] Oct, [place] [address] [address] Oct, [place] [address] [address] Oct, Mastoiditis, unspecified laterality H70. 90 and Type 2 diabetes mellitus with complication E11.8 [place] [address] [address] Sep, [place] [address] [address] Sep, Dysuria R30.0 ; Cough R05 ; Benign prost atic hyperplasia with lower urinary tract symptoms, unspecified morphology N40.1 ; Hypokalemia E87.6 and Eustachian tube dysfunction, unspecified laterality H69.80 [place] [address] [address] Sep, Moderate mixed bipolar I disorder F31.62 [place] [address] [address] Sep, Hypokalemia E87.[address] [address] Sep, [address] [address] Sep, Upper respiratory tract infection, unspe cified type J06.9 [place] [address] [address] Aug, [facility] [address] [place] [id number] [place] [address] Aug, Dysuria R30.0 [facility] [address] [place] [id number] [place] [address] Aug, [facility] [address] [place] [id number] [place] [address] Jul, [facility] [address] [address] Jul, [facility] [address] [address] Jul, [facility] [address] [address] Jul, [facility] [address] [address] Jun, [facility] [address] [address] Jun, [facility] [address] [place] [id number] [place] [address] Jun, [facility] [address] [address] May, [facility] [address] [address] May, Bipolar I disorder, most recent episode (or current) mixed, moderate 296.62 [facility] [address] [place] [id number] [place] [address] 16 May, 2015 [facility] [address] [address] May, Bipolar I disorder, most recent episode (or current) mixed, moderate 296.62 and Major depressive disorder, recurrent episode, severe, specified as with psychotic behavior 296.34 [facility] [address] [place] [id number] [place] [address] May, Bipolar I disorder, most recent episode (or current) mixed, moderate 296.62 [facility] [address] [address] May, [facility] [address] [address] Apr, [facility] [address] [address] Apr, [facility] [address] [address] Apr, Unspecified disorder of kidney and urete r 593.9 and Diabetes mellitus type 2, uncontrolled 250.02 [facility] [address] [address] Apr, [facility] [address] [address] Apr, [facility] [address] [address] Apr, [facility] [address] [address] Apr, [facility] [address] [address] Apr, Diabetes mellitus type II, uncontrolled 250.02 [facility] [address] [address] Apr, [facility] [address] [address] Mar, [facility] [address] [address] Mar, [facility] [address] [address] Mar, [facility] [address] [address] Mar, Major depressive disorder, recurrent epi sode, severe, specified as with psychotic behavior 296.34 and Bipolar I disorder, most recent episode (or current) mixed, moderate 296.[address] [address] Mar, Diabetes 250.00 ; Anuria 788.5 ; Nausea and vomiting 787.01 and Diarrhea 787.[address] [address] Mar, Diabetes 250.[address] [address] Mar, [address] [address] Mar, Diabetes 250.[address] [address] Mar, [address] [address] Mar, [address] [address] Mar, [address] [address] Mar, [address] [address] Mar, Bipolar I disorder, most recent episode (or current) mixed, moderate 296.62 and Major depressive disorder, recurrent episode, severe, specified as with psychotic behavior 296.[address] [address] Mar, Magnesium deficiency 275.2 ; Hypokalemia 276.8 ; Nausea & vomiting 787.01 and Diabetes mellitus type 2, uncontrolled 250.[address] [address] Feb, [address] [address] Feb, Bipolar I disorder, most recent episode (or current) mixed, moderate 296.[address] [address] Feb, Nausea and vomiting 787.01 ; Left elbow pain 719.42 ; Anuria 788.5 and Diabetes 250.00 [facility] [address] [address] Feb, [facility] [address] [address] Feb, Hypopotassemia 276.8 and Hypokalemia 276 .8 [place] [address] [address] Feb, Hypopotassemia 276.8 and Hypokalemia 276 .8 [place] [address] [address] Feb, Seborrheic keratoses 702.19 [place] [address] [address] Feb, Hypopotassemia 276.8 and Low magnesium l evels 275.2 [place] [address] [address] January, [facility] [address] [address] January, [facility] [address] [address] January, [facility] [address] [address] January, Scalp lesion 709.9 [facility] [address] [address] January, [facility] [address] [address] Dec, Tear of medial cartilage or meniscus of knee, current 836.0 and 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 [facility] [address] [address] Dec, [facility] [address] [address] Dec, [facility] [place] [facility] [address] [id number] [place] [address] 28 Dec, 2014 Squamous cell carcinoma, 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 42 [facility] [place] [facility] [address] [id number] [facility] [place] [address] 14 Dec, 2014 [facility] [place] [facility] [address] [id number] [place] [address] Dec, [facility] [place] [facility] [address] [id number] [place] [address] Nov, [facility] [place] [facility] [address] [id number] [place] [address] Nov, [facility] [place] [facility] [address] [id number] [place] [address] Nov, [facility] [place] [facility] [address] [id number] [place] [address] Nov, [facility] [place] [facility] [address] [id number] [place] [address] Nov, [facility] [place] [facility] [address] [id number] [place] [address] Nov, [facility] [place] [facility] [address] [id number] [place] [address] Nov, [facility] [place] [facility] [address] [id number] [place] [address] Nov, [facility] [place] [facility] [address] [id number] [place] [address] Nov, [facility] [place] [facility] [address] [id number] [place] [address] Nov, [facility] [place] [facility] [address] [id number] [place] [address] Nov, [facility] [place] [facility] [address] [id number] [place] [address] Nov, [facility] [place] [facility] [address] [id number] [place] [address] Oct, [facility] [place] [facility] [address] [id number] [place] [address] Oct, [facility] [place] [facility] [address] [id number] [place] [address] Oct, [facility] [place] [facility] [address] [id number] [place] [address] Oct, 2014 [facility] [place] [facility] [address] [id number] [place] [address] Oct, 2014 [facility] [place] [facility] [address] [id number] [place] [address] Oct, 2014 [facility] [place] [facility] [address] [id number] [place] [address] Oct, 2014 [facility] [place] [facility] [address] [id number] [place] [address] Oct, [facility] [place] [facility] [address] [place] [id number] [place] [address] Oct, [facility] [place] [facility] [address] [id number] [place] [address] Sep, [facility] [place] [facility] [address] [id number] [place] [address] Sep, [facility] [place] [facility] [address] [id number] [place] [address] Sep, [facility] [place] [facility] [address] [id number] [place] [address] Sep, [facility] [place] [facility] [address] [id number] [place] [address] Sep, [facility] [place] [facility] [address] [id number] [place] [address] Sep, [facility] [place] [facility] [address] [id number] [place] [address] Sep, [facility] [place] [facility] [address] [id number] [place] [address] Sep, [facility] [place] [facility] [address] [id number] [place] [address] 14 Sep, 2014 [facility] [place] [facility] [address] [facility] [id number] [place] [address] 14 Sep, 2014 [facility] [place] [facility] [address] [facility] [id number] [place] [address] 08 Sep, 2014 [facility] [place] [facility] [address] [id number] [place] [address] Sep, [facility] [place] [facility] [address] [id number] [place] [address] Sep, [facility] [place] [facility] [address] [facility] [id number] [place] [address] Sep, [facility] [place] [facility] [address] [id number] [place] [address] Sep, [facility] [place] [facility] [address] [id number] [place] [address] Sep, [facility] [place] [facility] [address] [id number] [place] [address] Aug, [facility] [place] [facility] [address] [id number] [place] [address] 31 Aug, 2014 [facility] [place] [facility] [address] [id number] [place] [address] Aug, [facility] [place] [facility] [address] [id number] [place] [address] 31 Aug, 2014 [facility] [place] [facility] [address] [id number] [place] [address] 31 Aug, 2014 [facility] [place] [facility] [address] [facility] [id number] [place] [address] 31 Aug, 2014 [facility] [place] [facility] [address] [id number] [place] [address] 17 Aug, 2014 [facility] [place] [facility] [address] [id number] [place] [address] 17 Aug, 2014 [facility] [place] [facility] [address] [id number] [place] [address] 12 Aug, 2014 [facility] [place] [facility] [address] [facility] [id number] [place] [address] Aug, [facility] [place] [facility] [address] [facility] [id number] [place] [address] Aug, [facility] [address] [place] [facility] [id number] Aug, [facility] [place] [facility] [address] [id number] [facility] [place] [address] Aug, [facility] [place] [facility] [address] [facility] [id number] [place] [address] Aug, [facility] [place] [facility] [address] [facility] [id number] [place] [address] Aug, [facility] [place] [facility] [address] [id number] [place] [address] Aug, [facility] [place] [facility] [address] [id number] [place] [address] Aug, [facility] [place] [facility] [address] [id number] [place] [address] Aug, [facility] [place] [facility] [address] [facility] [id number] [place] [address] Aug, [facility] [place] [facility] [address] [id number] [place] [address] Aug, [facility] [place] [facility] [address] [id number] [place] [address] Aug, [facility] [place] [facility] [address] [id number] [place] [address] Aug, [facility] [place] [facility] [address] [facility] [id number] [place] [address] Aug, [facility] [place] [facility] [address] [id number] [place] [address] Aug, [facility] [place] [facility] [address] [id number] [place] [address] Aug, [facility] [place] [facility] [address] [id number] [place] [address] Aug, [facility] [place] [facility] [address] [id number] [place] [address] Aug, [facility] [place] [facility] [address] [id number] [place] [address] Aug, [facility] [place] [facility] [address] [id number] [place] [address] Aug, [facility] [place] [facility] [address] [id number] [place] [address] Aug, [facility] [place] [facility] [address] [id number] [place] [address] Jul, [facility] [place] [facility] [address] [id number] [place] [address] Jul, [facility] [place] [facility] [address] [id number] [place] [address] Jul, [facility] [place] [facility] [address] [id number] [place] [address] Jul, [facility] [place] [facility] [address] [id number] [place] [address] Jul, [facility] [place] [facility] [address] [id number] [place] [address] Jul, [facility] [place] [facility] [address] [id number] [place] [address] Jul, [facility] [place] [facility] [address] [id number] [place] [address] Jul, [facility] [place] [facility] [address] [id number] [place] [address] Jul, [facility] [place] [facility] [address] [id number] [place] [address] Jul, [facility] [place] [facility] [address] [id number] [place] [address] Jun, [facility] [place] [facility] [address] [id number] [place] [address] Jun, [facility] [place] [facility] [address] [id number] [place] [address] 16 Jun, 2014 [facility] [place] [facility] [address] [facility] [id number] [place] [address] 16 Jun, 2014 [facility] [place] [facility] [address] [facility] [id number] [place] [address] 15 Jun, 2014 [facility] [address] [id number] [place] [address] 15 Jun, 2014 [facility] [address] [id number] [place] [address] Jun, [facility] [address] [facility] [id number] [place] [address] Jun, [facility] [address] [facility] [id number] [place] [address] Jun, [facility] [id number] [place] [address] Jun, [facility] [address] [facility] [id number] [place] [address] 29 May, 2013 [facility] [address] [facility] [id number] [place] [address] 29 Sep, 2013 [facility] [address] [id number] [place] [address] 26 Sep, 2013 [facility] [address] [facility] [facility] [id number] [place] [address] 26 Sep, 2013 [facility] [id number] [place] [address] 17 Sep, 2013 [facility] [id number] [place] [address] 17 Sep, 2013 [facility] [address] [facility] [id number] [place] [address] 15 Sep, 2013 [facility] [id number] [place] [address] 15 Sep, 2013 [facility] [address] [facility] [id number] [place] [address] 15 May, 2013 [facility] [address] [facility] [id number] [place] [address] 15 May, 2013 [facility] [address] [id number] [place] [address] 10 May, 2013 [facility] [address] [facility] [id number] [place] [address] 10 May, 2013 [facility] [address] [id number] [place] [address] 09 May, 2013 [facility] [address] [facility] [id number] [place] [address] 09 May, 2013 [facility] [address] [id number] [place] [address] 04 May, 2013 [facility] [id number] [place] [address] May, 2013 [facility] [id number] [place] [address] Apr, [facility] [id number] [place] [address] Apr, [facility] [address] [id number] [place] [address] Apr, [facility] [id number] [place] [address] Apr, [facility] [address] [id number] [place] [address] Apr, [facility] [id number] [place] [address] Apr, [facility] [address] [facility] [id number] [place] [address] Apr, [facility] [address] [id number] [place] [address] Apr, [facility] [id number] [place] [address] Apr, [facility] [id number] [place] [address] Apr, [facility] [address] [id number] [place] [address] Apr, [facility] [address] [facility] [id number] [facility] [place] [address] Apr, [facility] [facility] [address] [facility] [id number] [facility] [place] [address] Apr, [facility] [address] [facility] [id number] [facility] [place] [address] Apr, [facility] [facility] [address] [facility] [id number] [place] [address] Apr, [facility] [facility] [address] [id number] [place] [address] Mar, [facility] [address] [facility] [id number] [place] [address] Mar, [facility] [address] [id number] [place] [address] Mar, [facility] [address] [facility] [id number] [place] [address] Mar, [facility] [address] [facility] [id number] [place] [address] Mar, [facility] [address] [facility] [id number] [place] [address] Mar, [facility] [address] [id number] [place] [address] Mar, [facility] [address] [facility] [id number] [place] [address] Mar, [facility] [address] [facility] [id number] [place] [address] Mar, [facility] [address] [facility] [id number] [place] [address] Mar, [facility] [address] [facility] [id number] [place] [address] Mar, [facility] [address] [facility] [id number] [place] [address] Mar, 2013 [facility] [address] [facility] [id number] [facility] [place] [address] Mar, 2013 [facility] [address] [facility] [id number] [facility] [place] [address] Mar, 2013 [facility] [address] [id number] [facility] [place] [address] Mar, 2013 [facility] [address] [facility] [id number] [facility] [place] [address] Mar, 2013 [facility] [address] [facility] [id number] [facility] [place] [address] Mar, 2013 [facility] [address] [facility] [id number] [place] [address] Mar, 2013 [facility] [address] [id number] [place] [address] Feb, [facility] [address] [id number] [place] [address] Feb, [facility] [address] [facility] [id number] [place] [address] Feb, [facility] [address] [id number] [place] [address] Feb, [facility] [address] [id number] [place] [address] Feb, [facility] [address] [id number] [place] [address] Feb, [facility] [address] [facility] [id number] [place] [address] Feb, [facility] [address] [facility] [id number] [place] [address] Feb, [facility] [address] [id number] [place] [address] Feb, [facility] [address] [id number] [place] [address] Feb, [facility] [address] [id number] [place] [address] Feb, [facility] [address] [id number] [place] [address] Feb, [facility] [address] [id number] [place] [address] Feb, [facility] [address] [id number] [place] [address] Feb, [facility] [address] [id number] [place] [address] January, [facility] [address] [id number] [place] [address] January, [facility] [address] [id number] [place] [address] January, [facility] [address] [id number] [place] [address] January, [facility] [address] [id number] [place] [address] January, [facility] [address] [id number] [place] [address] January, [facility] [address] [id number] [place] [address] January, [facility] [address] [id number] [place] [address] January, [facility] [address] [id number] [place] [address] January, [facility] [address] [id number] [place] [address] January, [facility] [address] [id number] [place] [address] January, [facility] [address] [id number] [place] [address] January, [facility] [address] [id number] [place] [address] January, [facility] [address] [facility] [id number] [place] [address] January, [facility] [address] [facility] [id number] [place] [address] Dec, [facility] [address] [facility] [id number] [place] [address] Dec, [facility] [address] [id number] [place] [address] Dec, [facility] [address] [facility] [id number] [place] [address] Dec, [facility] [address] [id number] [place] [address] Dec, [facility] [address] [id number] [place] [address] Dec, [facility] [address] [id number] [place] [address] Dec, [facility] [address] [id number] [place] [address] Dec, [facility] [address] [id number] [place] [address] Dec, [facility] [address] [id number] [place] [address] Dec, [facility] [address] [id number] [place] [address] Nov, [facility] [address] [id number] [place] [address] Nov, [facility] [address] [facility] [id number] [place] [address] Nov, [facility] [address] [id number] [place] [address] Nov, [facility] [address] [id number] [place] [address] Nov, [facility] [address] [id number] [place] [address] Nov, [facility] [address] [id number] [place] [address] Nov, [facility] [address] [id number] [facility] [place] [address] Nov, [facility] [address] [id number] [place] [address] Nov, [facility] [address] [id number] [place] [address] Nov, [facility] [address] [id number] [facility] [place] [address] Oct, [facility] [address] [id number] [place] [address] Oct, [facility] [address] [id number] [place] [address] Oct, [facility] [address] [id number] [place] [address] Oct, [facility] [address] [id number] [place] [address] Oct, [facility] [address] [id number] [place] [address] Oct, [facility] [address] [id number] [place] [address] Oct, [facility] [address] [id number] [place] [address] 14 Oct, 2013 [facility] [address] [id number] [place] [address] Oct, [facility] [address] [id number] [place] [address] Oct, [facility] [address] [id number] [place] [address] Oct, [facility] [address] [id number] [place] [address] Oct, [facility] [address] [id number] [place] [address] Oct, [facility] [address] [id number] [place] [address] Oct, [facility] [address] [id number] [place] [address] Sep, [facility] [address] [id number] [place] [address] Sep, [facility] [address] [id number] [place] [address] Sep, [facility] [address] [id number] [place] [address] Sep, [facility] [address] [id number] [place] [address] Sep, [facility] [address] [id number] [place] [address] Sep, [facility] [address] [id number] [place] [address] Sep, [facility] [address] [id number] [place] [address] Sep, [facility] [address] [id number] [place] [address] Sep, [facility] [address] [id number] [place] [address] Sep, [facility] [address] [id number] [place] [address] Aug, [facility] [address] [id number] [place] [address] Aug, [facility] [address] [id number] [place] [address] Jul, [facility] [address] [id number] [place] [address] Jul, [facility] [address] [id number] [place] [address] 13 Jul, 2013 [facility] [address] [id number] [place] [address] Jul, [facility] [address] [id number] [place] [address] Jul, [facility] [address] [id number] [place] [address] Jul, [facility] [address] [id number] [place] [address] Jul, [facility] [address] [id number] [place] [address] Jul, [facility] [address] [id number] [place] [address] Jul, [facility] [address] [id number] [place] [address] Jul, [facility] [address] [id number] [place] [address] Jul, [facility] [address] [id number] [place] [address] Jul, [facility] [address] [id number] [place] [address] Jul, [facility] [address] [id number] [place] [address] Jul, [facility] [address] [id number] [place] [address] Jul, [facility] [address] [id number] [place] [address] Jul, [facility] [address] [id number] [place] [address] Jul, [facility] [address] [id number] [place] [address] Jul, [facility] [address] [id number] [place] [address] Jul, [facility] [address] [facility] [id number] [place] [address] 16 Jun, 2012 [facility] [address] [id number] [place] [address] 16 Jun, 2012 [facility] [address] [id number] [place] [address] 16 Jun, 2012 [facility] [address] [id number] [place] [address] 16 Jun, 2012 [facility] [address] [id number] [place] [address] 16 Jun, 2012 [facility] [address] [id number] [place] [address] 16 Jun, 2012 [facility] [address] [id number] [place] [address] 10 Jun, 2012 [facility] [address] [id number] [place] [address] 10 Jun, 2012 [facility] [address] [id number] [place] [address] 09 Jun, 2012 [facility] [address] [id number] [place] [address] 09 Jun, 2012 [facility] [address] [id number] [place] [address] Jun, 2012 [facility] [address] [id number] [place] [address] 26 Sep, 2012 [facility] [address] [id number] [place] [address] 25 Sep, 2012 [facility] [address] [facility] [id number] [place] [address] 19 Sep, 2012 [facility] [address] [id number] [place] [address] 17 Sep, 2012 [facility] [address] [id number] [place] [address] 11 Sep, 2012 [facility] [address] [id number] [place] [address] 10 Sep, 2012 [facility] [address] [id number] [place] [address] May, [facility] [address] [id number] [place] [address] May, [facility] [address] [id number] [place] [address] Apr, [facility] [address] [id number] [place] [address] Apr, [facility] [address] [facility] [id number] [place] [address] Apr, [facility] [address] [id number] [place] [address] Apr, [facility] [address] [id number] [place] [address] Apr, [facility] [address] [id number] [place] [address] Mar, [facility] [address] [id number] [place] [address] Mar, [facility] [address] [id number] [place] [address] Mar, [facility] [address] [id number] [place] [address] Mar, [facility] [address] [id number] [place] [address] Mar, [facility] [address] [id number] [place] [address] Mar, [facility] [address] [id number] [place] [address] Mar, [facility] [address] [id number] [place] [address] Mar, [facility] [address] [id number] [place] [address] Feb, [facility] [address] [id number] [place] [address] Feb, [facility] [address] [facility] [id number] [place] [address] January, [facility] [address] [id number] [place] [address] January, [facility] [address] [id number] [place] [address] Dec, [facility] [address] [id number] [place] [address] Dec, [facility] [address] [id number] [place] [address] Nov, [facility] [facility] [address] [id number] [place] [address] Nov, [facility] [facility] [address] [id number] [place] [address] Nov, [facility] [facility] [address] [id number] [place] [address] Nov, [facility] [facility] [address] [id number] [place] [address] Oct, [facility] [facility] [address] [id number] [place] [address] Oct, [facility] [facility] [address] [id number] [place] [address] Oct, [facility] [facility] [address] [id number] [place] [address] 26 Oct, 2012 [facility] [address] [id number] [place] [address] 16 Oct, 2012 [facility] [address] [id number] [place] [address] 14 Oct, 2012 [facility] [address] [id number] [place] [address] 08 Oct, 2012 [facility] [address] [id number] [place] [address] 07 Oct, 2012 [facility] [address] [id number] [place] [address] 03 Oct, 2012 [facility] [address] [id number] [place] [address] 30 Sep, 2012 [facility] [address] [id number] [place] [address] Sep, [facility] [address] [id number] [place] [address] Sep, [facility] [address] [id number] [place] [address] Sep, [facility] [address] [id number] [place] [address] Sep, [facility] [address] [id number] [place] [address] Sep, [facility] [id number] [place] [address] Sep, [facility] [address] [id number] [place] [address] 08 Sep, 2012 [facility] [address] [id number] [place] [address] Aug, [facility] [address] [id number] [place] [address] 31 Aug, 2012 [facility] [address] [id number] [place] [address] Aug, [facility] [address] [id number] [place] [address] Aug, [facility] [address] [id number] [place] [address] Aug, [facility] [address] [id number] [place] [address] Aug, [facility] [address] [id number] [place] [address] 18 Aug, 2012 [facility] [address] [id number] [place] [address] Aug, [facility] [facility] [address] [id number] [place] [address] Jul, [facility] [id number] [place] [address] Jul, [facility] [id number] [place] [address] Jul, [facility] [id number] [place] [address] Jul, [facility] [id number] [place] [address] Jul, [facility] [id number] [place] [address] Jul, [facility] [id number] [place] [address] Jun, [facility] [id number] [place] [address] Jun, [facility] [id number] [place] [address] Jun, [facility] [id number] [place] [address] Jun, [facility] [id number] [place] [address] Jun, [facility] [id number] [place] [address] Jun, [facility] [id number] [place] [address] Jun, [facility] [id number] [place] [address] Jun, [facility] [id number] [place] [address] Jun, [facility] [id number] [place] [address] 26 May, 2012 [facility] [address] [id number] [facility] [place] [address] 24 May, 2012 [facility] [address] [id number] [place] [address] May, [facility] [id number] [facility] [place] [address] Apr, [facility] [id number] [place] [address] Apr, [facility] [id number] [place] [address] Apr, [facility] [id number] [place] [address] Apr, [facility] [id number] [place] [address] Apr, [facility] [id number] [place] [address] Apr, [facility] [id number] [place] [address] Mar, [facility] [id number] [place] [address] Mar, [facility] [id number] [place] [address] Mar, [facility] [id number] [place] [address] Mar, [facility] [id number] [place] [address] Feb, [facility] [id number] [place] [address] Feb, [facility] [id number] [place] [address] Feb, [facility] [id number] [place] [address] Feb, [facility] [id number] [place] [address] Feb, [facility] [id number] [place] [address] January, [facility] [id number] [place] [address] January, [facility] [id number] [place] [address] January, [facility] [id number] [place] [address] January, [facility] [id number] [place] [address] January, [facility] [id number] [place] [address] January, [facility] [id number] [place] [address] Dec, [facility] [id number] [place] [address] Dec, [facility] [id number] [place] [address] Dec, [facility] [id number] [place] [address] Dec, [facility] [id number] [place] [address] Dec, [facility] [id number] [place] [address] Nov, [facility] [id number] [place] [address] Nov, [facility] [id number] [place] [address] Nov, [facility] [id number] [place] [address] Nov, [facility] [id number] [place] [address] Oct, [facility] [id number] [place] [address] 28 Oct, 2011 [facility] [id number] [place] [address] Oct, [facility] [id number] [place] [address] Oct, [facility] [id number] [place] [address] Oct, [facility] [id number] [place] [address] Sep, [facility] [id number] [place] [address] Sep, [facility] [id number] [place] [address] Sep, [facility] [id number] [place] [address] Sep, [facility] [id number] [place] [address] Sep, [facility] [id number] [place] [address] Sep, [facility] [id number] [place] [address] Aug, [facility] [id number] [place] [address] Aug, [facility] [id number] [place] [address] Aug, [facility] [id number] [place] [address] Jul, [facility] [id number] [place] [address] Jul, [facility] [id number] [place] [address] Jul, [facility] [id number] [place] [address] Jul, [facility] [id number] [place] [address] 31 Jun, 2011 [facility] [id number] [place] [address] 31 Jun, 2011 [facility] [id number] [place] [address] 18 Jun, 2011 [facility] [id number] [place] [address] 10 Jun, 2011 [facility] [id number] [place] [address] 10 Jun, 2011 [facility] [id number] [place] [address] 10 Jun, 2011 [facility] [id number] [place] [address] Mar, [facility] [id number] [place] [address] 18 Dec, 2010 [facility] [id number] [place] [address] Dec, [facility] [id number] [place] [address] 18 Nov, 2010 [facility] [id number] [place] [address] 16 Nov, 2010 [facility] [id number] [place] [address] Sep, [facility] [id number] [place] [address] Aug, [facility] [id number] [place] [address] Aug, [facility] [id number] [place] [address] Aug, [facility] [id number] [place] [address] Aug, [facility] [id number] [place] [address] Aug, [facility] [id number] [place] [address] 14 Aug, 2010 [facility] [id number] [place] [address] 08 Aug, 2010 [facility] [id number] [place] [address] 08 Aug, 2010 [facility] [id number] [place] [address] 07 Aug, 2010 [facility] [id number] [place] [address] Aug, [facility] [id number] [place] [address] Aug, [facility] [id number] [place] [address] Aug, [facility] [id number] [place] [address] Jul, [facility] [id number] [place] [address] Jul, [facility] [id number] [place] [address] Jul, [facility] [id number] [place] [address] Jul, [facility] [id number] [place] [address] Jul, [facility] [id number] [place] [address] Jul, [facility] [id number] [place] [address] Jun, [facility] [id number] [place] [address] Jun, [facility] [id number] [place] [address] Jun, [facility] [id number] [place] [address] 13 Jun, 2010 [facility] [id number] [place] [address] 16 Apr, 2010 [facility] [id number] [place] [address] Mar, [facility] [id number] [place] [address] Feb, [facility] [id number] [place] [address] January, [facility] [id number] [place] [address] 15 Dec, 2009 [facility] [id number] [place] [address] Nov, [facility] [id number] [place] [address] 31 Aug, 2009 [facility] [id number] [place] [address] Aug, [facility] [id number] [place] [address] Aug, [facility] [id number] [place] [address] Jul, [facility] [id number] [place] [address] Jul, [facility] [id number] [place] [address] 07 Jul, 2009 [facility] [id number] [place] [address] 30 Jun, 2009 [facility] [id number] [place] [address] 29 Jun, 2009 [facility] [id number] [place] [address] Jun, [facility] [id number] [place] [address] 22 Jun, 2009 [facility] [id number] [place] [address] Jun, [facility] [id number] [place] [address] Jun, [facility] [id number] [place] [address] Apr, [facility] [id number] [place] [address] Apr, [facility] [id number] [place] [address] Feb, [facility] [address] [address] January, [facility] [id number] [place] [address] Dec, IMMUNIZATIONS No Known Immunizations SOCIAL HISTORY Never Assessed REASON FOR VISIT PLAN OF CARE VITAL SIGNS MEDICATIONS Unknown Medications RESULTS No Results PROCEDURES Procedure Date Ordered Result Body Site PSYTX PT&/FAMILY 45 MINUTES December 13, 2013 INSTRUCTIONS MEDICATIONS ADMINISTERED No Known Medications [...] History inability to urinate 09/16/15 Hospitalization History [facility] health ea [facility]ly 2000's Hospitalization History hyperkalemia 10/2017 Hospitalization History fluid in lung
--- OUTSIDE RECORDS SUMMARY | 2020-03-01 16:47 | XMS REPORT ---
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 Name Role Phone Migration, Doctor Unavailable Unavailable PROBLEMS Type Condition ICD9-CM Code [id number] Code Onset Dates Condition S tatus SNOMED Code Problem DM neuro manif type II E11.49 Active 46239800 Problem Chronic pain G89.29 Active 8022885 1 Problem Diabetes E11.9 Active 23160536 Problem Reactive airway disease J45.909 Active 476167260268 Problem Leukocytosis D72.829 Active 8043844 06 Problem Insomnia, unspecified type G47.00 Act sharon 690975055 Problem Bipolar I disorder, most recent episode (or curr ent) mixed, moderate F31.62 Active 34396363 Problem Primary osteoarthritis of right knee M17.11 Active 358546182475007 Problem Cough R05 Active 73474106 Problem Pure hypercholesterolemia E78.00 Acti ve 945333196 Problem Dysuria R30.0 Active 17280248 Problem Benign prostatic hyperplasia with lower urinary tract symptoms, unspecified morphology N40.1 Active 05147 6007 Problem Eustachian tube dysfunction, unspecified laterality H69.80 Active 80430965 Problem Polyneuropathy associated with underlying disease G63 Active 122008400 Problem Diabetic polyneuropathy associated with type 2 d iabetes mellitus E11.42 Active 86192266 Problem Anemia of chronic illness D63.8 Acti ve 246724157 Problem Chronic lymphocytic leukemia C91.10 A ctive 45201396 Problem Bilateral primary osteoarthritis of knee M17.0 Active 601359185 Problem 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 Active 906625200 Problem Eye exam abnormal R93.8 Active 16 1757352 Problem Retinal edema H35.81 Active 805022 6 Problem Lymphocytosis D72.820 Active 876312 09 Problem Bipolar disorder, in partial remission, most rec ent episode depressed F31.75 Active 33016967 Problem Hypokalemia E87.6 Active 65632651 Problem Falling R29.6 Active 677839010 Problem Pressure ulcer of other site, stage 3 L89.893 Active 640845690 Problem Other iron deficiency anemia D50.8 A ctive 32233122 Problem Mild cognitive impairment G31.84 Acti ve 911544147 Problem Skin cancer C44.90 Active 90040654 7 Problem alf (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 Z79.4 Active 323439286 Problem Morbid obesity E66.01 Active 72847 6002 Problem Mood disorder F39 Active 451947 05 Problem Anxiety F41.9 Active 33525707 Problem Essential hypertension I10 Active 62408829 Problem Bipolar disorder F31.9 Active 137 25442 Problem Chronic diastolic (congestive) heart failure I50.3 2 Active 599021684 Problem Psychophysiological insomnia F51.04 A ctive 364980944 Problem Type 2 diabetes mellitus with diabetic neuropathy, uns pecified E11.40 Active 56709271 ALLERGIES No Information ENCOUNTERS Encounter Location Date Diagnosis [place] [address] [address] Dec, [place] [address] [address] Dec, [place] [address] [address] Nov, [place] [address] [address] Nov, [place] [address] [address] Nov, [place] [address] [address] Oct, Chronic pain G89.29 [place] [address] [address] Oct, [place] [address] [address] Oct, Mood disorder F39 [place] [address] [address] Oct, [place] [address] [address] Oct, Bipolar disorder, in partial remission, most recent episode depressed F31.75 and Mild cognitive impairment G31.84 [facility] [address] [id number] [place] [address] 04 Oct, 2019 Mood disorder F39 [facility] [address] [id number] [place] [address] Sep, [facility] [address] [place] [id number] [place] [address] Sep, Mood disorder F39 [facility] [address] [place] [id number] [place] [address] Sep, Bipolar disorder, in partial remission, most recent episode depressed F31.75 and Mild cognitive impairment G31.84 [facility] [address] [place] [id number] [place] [address] Sep, Mood disorder F39 [facility] [address] [place] [address] [id number] [place] [address] Sep, [facility] [address] [place] [address] [id number] [place] [address] Sep, Mood disorder F39 [facility] [address] [place] [id number] [place] [address] Sep, [facility] [address] [place] [id number] [place] [address] Aug, Mood disorder F39 [facility] [address] [place] [address] [id number] [place] [address] Aug, [facility] [address] [id number] [place] [address] Aug, [facility] [address] [id number] [place] [address] Aug, [facility] [address] [place] [id number] [place] [address] Aug, [facility] [address] [place] [id number] [place] [address] Aug, [facility] [address] [place] [id number] [place] [address] Aug, [facility] [address] [id number] [place] [address] Aug, [facility] [address] [id number] [place] [address] Aug, Essential hypertension I10 [facility] [address] [id number] [place] [address] Aug, Bipolar disorder, in partial remission, most recent episode depressed F31.75 and Mild cognitive impairment G31.84 [facility] [address] [place] [id number] [place] [address] Aug, Mood disorder F39 [facility] [address] [place] [id number] [place] [address] Aug, [facility] [address] [place] [id number] [place] [address] Aug, Bipolar disorder, in partial remission, most recent episode depressed F31.75 and Mild cognitive impairment G31.84 [facility] [address] [id number] [place] [address] Jul, Bipolar disorder, in partial remission, most recent episode depressed F31.75 and Mild cognitive impairment G31.84 [facility] [address] [place] [id number] [place] [address] Jul, Psychophysiological insomnia F51.04 [facility] [address] [id number] [place] [address] Jul, [facility] [address] [place] [id number] [place] [address] Jul, [facility] [address] [id number] [place] [address] Jul, [facility] [address] [place] [id number] [place] [address] Jul, [facility] [address] [id number] [place] [address] Jul, [facility] [address] [place] [id number] [place] [address] Jul, [place] [address] [address] Jul, Bipolar disorder, in partial remission, most recent episode depressed F31.75 and Mild cognitive impairment G31.84 [place] [address] [address] Jul, Chronic pain G89.29 ; Diabetes E11.9 ; E ssential hypertension I10 ; Ill feeling R68.89 ; Local infection of the skin and subcutaneous tissue, unspecified L08.9 and Other injury of unspecified body region, initial encounter T14.8XXA [place] [address] [address] Jun, Bipolar disorder, in partial remission, most recent episode depressed F31.75 and Mild cognitive impairment G31.84 [place] [address] [address] Jun, [place] [address] [address] Jun, Bipolar disorder, in partial remission, most recent episode depressed F31.75 and Mild cognitive impairment G31.84 [place] [address] [address] Jun, Psychophysiological insomnia F51.[address] [address] Jun, Psychophysiological insomnia F51.04 ; Ch ronic pain G89.29 ; Bipolar I disorder, most recent episode (or current) mixed, moderate F31.62 ; 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 ; Polyneuropathy associated with underlying disease G63 ; Type 2 diabetes mellitus with diabetic neuropathy, unspecified E11.40 ; 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 and Hyperglycemia R73.9 [place] [address] [address] Jun, Bipolar disorder, in partial remission, most recent episode depressed F31.75 and Mild cognitive impairment G31.84 [facility] [address] [place] [id number] [place] [address] Jun, [facility] [address] [place] [id number] [place] [address] Jun, Bipolar disorder F31.9 [facility] [address] [address] May, Bipolar disorder, in partial remission, most recent episode depressed F31.75 and Mild cognitive impairment G31.84 [facility] [address] [place] [id number] [place] [address] May, [facility] [address] [address] Apr, Chronic pain G89.29 and Bipolar disorder F31.9 [facility] [address] [address] Mar, Bipolar disorder F31.9 and Chronic pain G89.29 [facility] [address] [address] Feb, Bipolar disorder F31.9 [facility] [address] [address] Feb, Cellulitis of right upper extremity L03. 113 and Skin abrasion T14.8XXA [facility] [address] [address] Feb, Bipolar disorder, in partial remission, most recent episode depressed F31.75 and Mild cognitive impairment G31.84 [facility] [address] [place] [id number] [place] [address] Feb, Chronic pain G89.29 [facility] [address] [address] Feb, Bipolar disorder, in partial remission, most recent episode depressed F31.75 and Mild cognitive impairment G31.84 [facility] [address] [address] January, Bipolar disorder, in partial remission, most recent episode depressed F31.75 and Mild cognitive impairment G31.84 [facility] [address] [place] [id number] [place] [address] January, Chronic pain G89.29 and Bipolar disorder F31.9 [facility] [address] [place] [id number] [place] [address] January, Bipolar disorder, in partial remission, most recent episode depressed F31.75 and Mild cognitive impairment G31.84 [facility] [address] [place] [id number] [place] [address] Dec, [facility] [address] [address] Dec, Chronic pain G89.29 and Bipolar disorder F31.9 [facility] [address] [address] Dec, Edema of both lower extremities R60.0 [facility] [address] [address] Dec, Bipolar disorder F31.9 [facility] [address] [address] Dec, Bipolar disorder, in partial remission, most recent episode depressed F31.75 and Mild cognitive impairment G31.84 [facility] [address] [place] [id number] [place] [address] Nov, [facility] [address] [address] Nov, Chronic pain G89.29 [facility] [address] [place] [id number] [place] [address] Nov, Bipolar disorder, in partial remission, most recent episode depressed F31.75 and Mild cognitive impairment G31.84 [facility] [address] [place] [id number] [place] [address] Nov, Bipolar disorder F31.9 [facility] [address] [address] 04 Nov, 2018 Encounter for Medicare annual [...] unspecified morphology N40.1 and Essential hypertension I10 [address] [address] Oct, Chronic pain G89.[address] [address] 18 Oct, 2018 Diabetes E11.[address] [address] Oct, Bipolar I disorder, most recent episode (or current) mixed, moderate F31.62 and Mild cognitive impairment G31.[address] [address] Oct, Bipolar I disorder, most recent episode (or current) mixed, moderate F31.62 and Mild cognitive impairment G31.84 [place] [address] [address] Sep, Bipolar I disorder, most recent episode (or current) mixed, moderate F31.62 and Mild cognitive impairment G31.84 [place] [address] [address] Sep, [address] [address] Sep, Diabetes E11.9 ; Hypoxia R09.02 ; Hyperg lycemia R73.9 ; Therapeutic drug monitoring Z51.81 ; BMI 50.0-59.9, adult Z68.43 and Skin cancer C44.[address] [place] [address] Sep, Chronic pain G89.29 [facility] [address] [address] Sep, Bipolar I disorder, most recent episode (or current) mixed, moderate F31.62 [facility] [address] [address] Sep, [facility] [address] [address] Sep, [facility] [address] [address] Aug, Chronic pain G89.29 [facility] [address] [address] Aug, Bipolar I disorder, most recent episode (or current) mixed, moderate F31.62 [facility] [address] [address] Aug, Bipolar I disorder, most recent episode (or current) mixed, moderate F31.62 and Mild cognitive impairment G31.84 [facility] [address] [address] Jul, [facility] [address] [address] Jul, Chronic pain G89.29 [facility] [address] [address] Jul, Bipolar I disorder, most recent episode (or current) mixed, moderate F31.62 and Mild cognitive impairment G31.84 [facility] [address] [address] Jul, Bipolar I disorder, most recent episode (or current) mixed, moderate F31.62 and MCI (mild cognitive impairment) G31.84 [facility] [address] [address] Jul, [facility] [address] [place] [address] Jul, [facility] [address] [place] [id number] [place] [address] Jul, Bipolar I disorder, most recent episode (or current) mixed, moderate F31.62 [facility] [address] [place] [id number] [place] [address] Jul, Chronic pain G89.29 [facility] [address] [place] [address] Jun, Bipolar I disorder, most recent episode (or current) mixed, moderate F31.62 [place] [address] [address] Jun, Pre-procedure lab exam Z01.812 [place] [address] [place] [id number] [place] [address] Jun, [place] [address] [facility] [place] [address] Jun, [place] [address] [place] [id number] [place] [address] Jun, [address] [address] Jun, Forgetfulness R68.89 ; Pre-syncope R55 ; Localized edema R60.0 ; Other iron deficiency anemia D50.8 and BMI 50.0-59.9, adult Z68.43 [facility] [address] [place] [id number] [place] [address] Jun, Chronic pain G89.29 [facility] [address] [place] [id number] [place] [address] Jun, Chronic pain G89.29 [facility] [address] [place] [id number] [place] [address] Jun, Bipolar I disorder, most recent episode (or current) mixed, moderate F31.62 [facility] [address] [place] [id number] [place] [address] May, Chronic pain G89.29 [facility] [address] [address] Apr, [facility] [address] [address] Apr, Chronic pain G89.29 [place] [address] [address] Apr, Primary osteoarthritis of right knee M17 .11 [place] [address] [address] Mar, [place] [address] [address] Mar, BMI 50.0-59.9, adult Z68.43 and Bipolar disorder, in partial remission, most recent episode depressed F31.75 [place] [address] [address] Mar, Diabetes E11.9 ; Pure hypercholesterolem ia E78.00 ; Essential hypertension I10 ; Nausea with vomiting, unspecified R11.2 and Headache, unspecified headache type R51 [place] [address] [address] Mar, Bipolar I disorder, most recent episode (or current) mixed, moderate F31.62 [place] [address] [address] Mar, Bipolar I disorder, most recent episode (or current) mixed, moderate F31.62 [place] [address] [address] Mar, Chronic pain G89.29 [place] [address] [address] Mar, Bipolar I disorder, most recent episode (or current) mixed, moderate F31.62 [place] [address] [address] Feb, Bipolar I disorder, most recent episode (or current) mixed, moderate F31.62 [place] [address] [address] 14 Feb, 2018 Chronic pain G89.29 [place] [address] [address] Feb, Decubitus ulcer of right foot, stage 3 L 89.893 and BMI 50.0-59.9, adult Z68.43 [place] [address] [address] Feb, Bipolar I disorder, most recent episode (or current) mixed, moderate F31.62 [place] [address] [address] Feb, [place] [address] [address] January, [place] [address] [address] January, Chronic pain G89.29 [place] [address] [address] January, Bipolar I disorder, most recent episode (or current) mixed, moderate F31.62 [place] [address] [address] January, Bipolar I disorder, most recent episode (or current) mixed, moderate F31.62 [place] [address] [address] Dec, Bipolar I disorder, most recent episode (or current) mixed, moderate F31.62 and BMI 50.0-59.9, adult Z68.43 [place] [address] [address] Dec, Bipolar I disorder, most recent episode (or current) mixed, moderate F31.62 [place] [address] [address] Dec, Chronic pain G89.29 [place] [address] [address] Dec, DM neuro manif type II E11.49 ; Right fl ank pain R10.9 ; 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 ; Encounter for medication monitoring Z51.81 and BMI 50.0-59.9, adult Z68.43 [place] [address] [address] Dec, Bipolar I disorder, most recent episode (or current) mixed, moderate F31.62 [place] [address] [address] Nov, Bipolar I disorder, most recent episode (or current) mixed, moderate F31.62 [place] [address] [address] Nov, Chronic pain G89.29 [place] [address] [address] Nov, Bipolar I disorder, most recent episode (or current) mixed, moderate F31.62 [place] [address] [address] Nov, Hypokalemia E87.6 [place] [address] [address] Nov, Bipolar I disorder, most recent episode (or current) mixed, moderate F31.62 [place] [address] [address] Oct, Chronic pain G89.29 [place] [address] [address] Oct, BMI 50.0-59.9, adult Z68.43 and Bipolar I disorder, most recent episode (or current) mixed, moderate F31.62 [place] [address] [place] [address] Oct, Bipolar I disorder, most recent episode (or current) mixed, moderate F31.62 [place] [address] [address] Oct, [place] [address] [address] Oct, Hypokalemia E87.6 [place] [address] [address] Oct, DM neuro manif type II E11.49 [place] [address] [address] Oct, Bipolar I disorder, most recent episode (or current) mixed, moderate F31.62 [place] [address] [address] Oct, Bipolar I disorder, most recent episode (or current) mixed, moderate F31.62 [place] [address] [address] Oct, Hyperkalemia E87.5 ; Falling R29.6 ; BMI 50.0-59.9, adult Z68.43 and Acute left ankle pain M25.572 [place] [address] [address] Oct, DM neuro manif type II E11.49 [place] [address] [address] Oct, [place] [address] [address] Sep, Chronic pain G89.29 [place] [address] [address] Sep, [place] [address] [address] Sep, Bilateral primary osteoarthritis of knee M17.0 [place] [address] [address] Sep, Generalized edema R60.[address] [address] Sep, Bipolar I disorder, most recent episode (or current) mixed, moderate F31.62 [place] [address] [address] 15 Sep, 2017 Hypoxia R09.02 ; Other hypervolemia E87. 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 ; Anemia of chronic illness D63.8 and BMI 50.0-59.9, adult Z68.43 [place] [address] [address] Sep, [place] [address] [address] Sep, Bipolar I disorder, most recent episode (or current) mixed, moderate F31.62 [place] [address] [address] Aug, Chronic pain G89.29 [place] [address] [address] Aug, Generalized edema R60.1 [place] [address] [address] 18 Aug, 2017 [place] [address] [address] 18 Aug, 2017 [place] [address] [address] 14 Aug, 2017 Bipolar I disorder, most recent episode (or current) mixed, moderate F31.62 [place] [address] [address] 07 Aug, 2017 Bipolar I disorder, most recent episode (or current) mixed, moderate F31.62 [place] [address] [address] 04 Aug, 2017 Chronic pain G89.29 [place] [address] [address] Jul, Bipolar I disorder, most recent episode (or current) mixed, moderate F31.62 [facility] [address] [address] Jul, Bipolar I disorder, most recent episode (or current) mixed, moderate F31.62 and BMI 60.0-69.9, adult Z68.44 [place] [address] [address] Jul, Bipolar I disorder, most recent episode (or current) mixed, moderate F31.62 [place] [address] [address] Jul, Chronic pain G89.29 [place] [address] [place] [address] Jul, Bipolar I disorder, most recent episode (or current) mixed, moderate F31.62 [place] [address] [address] Jun, Polyneuropathy associated with underlyin g disease G63 and Diabetes E11.9 [place] [address] [address] Jun, Bipolar I disorder, most recent episode (or current) mixed, moderate F31.62 [place] [address] [address] Jun, Chronic pain G89.29 [place] [address] [address] May, Bipolar I disorder, most recent episode (or current) mixed, moderate F31.62 [place] [address] [address] May, Bipolar I disorder, most recent episode (or current) mixed, moderate F31.62 [place] [address] [address] May, Diabetic polyneuropathy associated with type 2 diabetes mellitus E11.42 [place] [address] [address] May, Bipolar I disorder, most recent episode (or current) mixed, moderate F31.62 [facility] [address] [address] 13 May, 2017 Bipolar I disorder, most recent episode (or current) mixed, moderate F31.62 [facility] [address] [address] 12 May, 2017 Chronic pain G89.29 [facility] [address] [address] Apr, Bipolar I disorder, most recent episode (or current) mixed, moderate F31.62 [place] [address] [address] Apr, [place] [address] [address] Apr, Chronic pain G89.29 and DM neuro manif t ype II E11.49 [place] [address] [address] Apr, [place] [address] [address] Apr, Bipolar I disorder, most recent episode (or current) mixed, moderate F31.62 [place] [address] [address] Apr, Chronic pain G89.29 [place] [address] [address] Apr, Iliotibial band syndrome, left M76.32 [facility] [address] [address] Apr, Bipolar I disorder, most recent episode (or current) mixed, moderate F31.62 [place] [address] [address] Mar, Bipolar I disorder, most recent episode (or current) mixed, moderate F31.62 [place] [address] [address] Mar, Bipolar I disorder, most recent episode (or current) mixed, moderate F31.62 [place] [address] [address] Mar, [place] [address] [address] Mar, Bipolar I disorder, most recent episode (or current) mixed, moderate F31.62 [place] [address] [address] Mar, Chronic pain G89.29 [place] [address] [address] Mar, Bipolar I disorder, most recent episode (or current) mixed, moderate F31.62 [place] [address] [address] Mar, Bipolar I disorder, most recent episode (or current) mixed, moderate F31.62 [place] [address] [address] Mar, Acute pain of left knee M25.562 ; Left h ip pain M25.552 ; Generalized edema R60.1 and Tongue swelling R22.0 [place] [address] [address] Mar, [address] [address] Feb, Chronic pain G89.29 [place] [address] [address] Feb, Diabetes E11.[address] [address] January, Chronic pain G89.29 [place] [address] [address] January, 99 [address] [address] January, Bipolar I disorder, most recent episode (or current) mixed, moderate F31.62 [facility] [address] [address] Dec, Bipolar I disorder, most recent episode (or current) mixed, moderate F31.62 [facility] [address] [address] Dec, Chronic pain G89.29 [facility] [address] [address] Dec, Bipolar I disorder, most recent episode (or current) mixed, moderate F31.62 [place] [address] [address] Dec, Diabetes E11.9 ; Essential hypertension I10 ; Chronic pain G89.29 and Morbid obesity E66.01 [facility] [address] [address] Dec, [facility] [address] [address] Dec, Bipolar I disorder, most recent episode (or current) mixed, moderate F31.62 [facility] [address] [address] Dec, Bipolar I disorder, most recent episode (or current) mixed, moderate F31.62 [place] [address] [address] Nov, Chronic pain G89.29 [facility] [address] [address] Nov, Bipolar I disorder, most recent episode (or current) mixed, moderate F31.62 [facility] [address] [address] Nov, [facility] [address] [address] Nov, Bipolar I disorder, most recent episode (or current) mixed, moderate F31.62 [facility] [address] [address] Nov, Bipolar I disorder, most recent episode (or current) mixed, moderate F31.62 [facility] [address] [address] Nov, [facility] [address] [address] Nov, [facility] [address] [address] Nov, [facility] [address] [address] Oct, Chronic pain G89.29 [place] [address] [address] Oct, Bipolar I disorder, most recent episode (or current) mixed, moderate F31.62 [place] [address] [address] Oct, [place] [address] [address] Oct, Chronic pain G89.29 ; Diabetes E11.9 ; A nxiety F41.9 and 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 [place] [address] [address] 10 Oct, 2016 [place] [address] [address] Oct, Diabetes E11.9 [place] [address] [address] Oct, Bipolar I disorder, most recent episode (or current) mixed, moderate F31.62 [place] [address] [address] Sep, Chronic pain G89.29 [facility] [address] [address] Sep, Chronic pain G89.29 [facility] [address] [address] Aug, Chronic pain G89.29 [facility] [address] [address] Jul, [facility] [address] [address] Jul, Diabetes E11.9 [place] [address] [address] Jul, Chronic pain G89.29 [place] [address] [address] Jul, Bipolar I disorder, most recent episode (or current) mixed, moderate F31.62 [place] [address] [address] Jun, Bipolar I disorder, most recent episode (or current) mixed, moderate F31.62 [place] [address] [address] Jun, [place] [address] [address] Jun, Bipolar I disorder, most recent episode (or current) mixed, moderate F31.62 [place] [address] [address] May, Insomnia, unspecified type G47.00 [place] [address] [address] May, Bipolar I disorder, most recent episode (or current) mixed, moderate F31.62 [place] [address] [address] 14 May, 2016 [place] [address] [address] 08 May, 2016 Bipolar I disorder, most recent episode (or current) mixed, moderate F31.62 [place] [address] [address] May, Diabetes E11.9 and Essential hypertensio n I10 [place] [address] [address] Apr, Chronic pain G89.29 [place] [address] [address] Apr, Bipolar I disorder, most recent episode (or current) mixed, moderate F31.62 [place] [address] [address] Apr, [place] [address] [address] Apr, [place] [address] [address] Mar, Chronic pain G89.29 ; Headache, unspecif ied headache type R51 ; Neuropathy G62.9 ; Pain of right hip joint M25.551 and Essential hypertension I10 [place] [address] [address] Mar, Chronic pain G89.29 [place] [address] [address] Mar, Bipolar I disorder, most recent episode (or current) mixed, moderate F31.62 [place] [address] [address] Feb, Bipolar I disorder, most recent episode (or current) mixed, moderate F31.62 and Insomnia, unspecified type G47.00 [place] [address] [address] Feb, Chronic pain G89.29 [place] [address] [address] Feb, Bipolar I disorder, most recent episode (or current) mixed, moderate F31.62 [place] [address] [address] January, Bipolar I disorder, most recent episode (or current) mixed, moderate F31.62 [facility] [address] [address] January, Chronic pain G89.29 [facility] [address] [address] January, Chronic pain G89.29 and Essential hypert ension I10 [facility] [address] [address] January, Bipolar I disorder, most recent episode (or current) mixed, moderate F31.62 [facility] [address] [address] Dec, [facility] [address] [address] Dec, [facility] [address] [address] Dec, [facility] [address] [address] Dec, [facility] [address] [address] Nov, Reactive airway disease J45.909 [place] [address] [address] Nov, [facility] [address] [address] Nov, [facility] [address] [address] Nov, [facility] [address] [address] Nov, [facility] [address] [address] Nov, Onychomycosis B35.1 ; Hammertoe M20.40 ; [place] or callus L84 and DM neuro manif type II E11.49 [facility] [address] [address] Nov, Chronic pain G89.29 ; Leukocytosis D72.8 29 and Diabetes E11.9 [place] [address] [address] Nov, [place] [address] [address] Oct, Bronchitis J40 [place] [address] [address] Oct, [place] [address] [address] Oct, [place] [address] [address] Oct, Mastoiditis, unspecified laterality H70. 90 and Type 2 diabetes mellitus with complication E11.8 [place] [address] [address] Sep, [place] [address] [address] Sep, Dysuria R30.0 ; Cough R05 ; Benign prost atic hyperplasia with lower urinary tract symptoms, unspecified morphology N40.1 ; Hypokalemia E87.6 and Eustachian tube dysfunction, unspecified laterality H69.80 [place] [address] [address] Sep, Moderate mixed bipolar I disorder F31.62 [place] [address] [address] Sep, Hypokalemia E87.6 [place] [address] [address] Sep, [place] [address] [address] Sep, Upper respiratory tract infection, unspe cified type J06.9 [place] [address] [address] Aug, [place] [address] [address] Aug, Dysuria R30.0 [facility] [address] [address] Aug, [facility] [address] [address] Jul, [facility] [address] [address] Jul, [facility] [address] [address] Jul, [facility] [address] [address] Jul, [facility] [address] [address] Jun, [facility] [address] [address] Jun, [facility] [address] [address] Jun, [facility] [address] [address] May, [facility] [address] [address] May, Bipolar I disorder, most recent episode (or current) mixed, moderate 296.62 [facility] [address] [address] 16 May, 2015 [facility] [address] [address] May, Bipolar I disorder, most recent episode (or current) mixed, moderate 296.62 and Major depressive disorder, recurrent episode, severe, specified as with psychotic behavior 296.34 [facility] [address] [address] May, Bipolar I disorder, most recent episode (or current) mixed, moderate 296.62 [facility] [address] [address] May, [facility] [address] [address] Apr, [facility] [address] [address] Apr, [facility] [address] [address] Apr, Unspecified disorder of kidney and urete r 593.9 and Diabetes mellitus type 2, uncontrolled 250.02 [facility] [address] [address] Apr, [facility] [address] [address] Apr, [facility] [address] [address] Apr, [facility] [address] [address] Apr, [facility] [address] [address] Apr, Diabetes mellitus type II, uncontrolled 250.02 [facility] [address] [address] Apr, [facility] [address] [address] Mar, [facility] [address] [address] Mar, [facility] [address] [address] Mar, [facility] [address] [address] Mar, Major depressive disorder, recurrent epi sode, severe, specified as with psychotic behavior 296.34 and Bipolar I disorder, most recent episode (or current) mixed, moderate 296.62 [facility] [address] [address] Mar, Diabetes 250.00 ; Anuria 788.5 ; Nausea and vomiting 787.01 and Diarrhea 787.91 [place] [address] [address] Mar, Diabetes 250.00 [facility] [address] [address] Mar, [address] [address] Mar, Diabetes 250.00 [place] [address] [address] Mar, [address] [address] Mar, [address] [address] Mar, [address] [address] Mar, [address] [address] Mar, Bipolar I disorder, most recent episode (or current) mixed, moderate 296.62 and Major depressive disorder, recurrent episode, severe, specified as with psychotic behavior 296.[address] [address] Mar, Magnesium deficiency 275.2 ; Hypokalemia 276.8 ; Nausea & vomiting 787.01 and Diabetes mellitus type 2, uncontrolled 250.[address] [address] Feb, [address] [address] Feb, Bipolar I disorder, most recent episode (or current) mixed, moderate 296.[address] [address] Feb, Nausea and vomiting 787.01 ; Left elbow pain 719.42 ; Anuria 788.5 and Diabetes 250.00 [facility] [address] [address] Feb, [facility] [address] [address] Feb, Hypopotassemia 276.8 and Hypokalemia 276 .8 [facility] [address] [address] Feb, Hypopotassemia 276.8 and Hypokalemia 276 .8 [facility] [address] [address] Feb, Seborrheic keratoses 702.19 [place] [address] [address] Feb, Hypopotassemia 276.8 and Low magnesium l evels 275.[address] [address] January, [facility] [address] [address] January, [facility] [address] [address] January, [facility] [address] [address] January, Scalp lesion 709.9 [place] [address] [address] January, [facility] [address] [address] Dec, Tear of medial cartilage or meniscus of knee, current 836.0 and 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 [place] [address] [address] Dec, [facility] [address] [address] Dec, [facility] [address] [address] 28 Dec, 2014 Squamous cell carcinoma, 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 42 [facility] [address] [id number] [place] [address] 14 Dec, 2014 [facility] [address] [id number] [place] [address] Dec, [facility] [address] [place] [id number] [place] [address] Nov, [facility] [address] [id number] [place] [address] Nov, [facility] [address] [id number] [place] [address] Nov, [facility] [address] [id number] [place] [address] Nov, [facility] [address] [place] [id number] [place] [address] Nov, [facility] [address] [place] [id number] [place] [address] Nov, [facility] [address] [id number] [place] [address] Nov, [facility] [address] [id number] [place] [address] Nov, [facility] [address] [place] [id number] [place] [address] Nov, [facility] [address] [id number] [place] [address] Nov, [facility] [address] [id number] [place] [address] Nov, [facility] [address] [place] [id number] [place] [address] Nov, [facility] [address] [id number] [place] [address] Oct, [facility] [address] [place] [address] [id number] [place] [address] Oct, [facility] [address] [facility] [id number] [place] [address] Oct, 2014 [facility] [address] [id number] [place] [address] Oct, 2014 [facility] [address] [id number] [place] [address] Oct, 2014 [facility] [address] [id number] [place] [address] Oct, 2014 [facility] [address] [id number] [place] [address] Oct, [facility] [address] [id number] [place] [address] Oct, [facility] [address] [id number] [place] [address] Oct, [facility] [address] [id number] [place] [address] Sep, [facility] [address] [id number] [place] [address] Sep, [facility] [address] [id number] [place] [address] Sep, [facility] [address] [id number] [place] [address] Sep, [facility] [address] [id number] [place] [address] Sep, [facility] [address] [id number] [place] [address] Sep, [facility] [address] [id number] [place] [address] Sep, [facility] [address] [id number] [place] [address] Sep, [facility] [address] [id number] [place] [address] Sep, [facility] [address] [id number] [place] [address] 14 Sep, 2014 [facility] [address] [id number] [place] [address] Sep, [facility] [address] [id number] [place] [address] Sep, [facility] [address] [id number] [place] [address] Sep, [facility] [address] [id number] [place] [address] Sep, [facility] [address] [id number] [place] [address] Sep, [facility] [address] [id number] [place] [address] Sep, [facility] [address] [id number] [place] [address] Aug, [facility] [address] [id number] [place] [address] Aug, [facility] [address] [id number] [place] [address] Aug, [facility] [address] [id number] [place] [address] Aug, [facility] [address] [id number] [place] [address] Aug, [facility] [address] [id number] [place] [address] 31 Aug, 2014 [facility] [address] [id number] [place] [address] 17 Aug, 2014 [facility] [address] [id number] [place] [address] 17 Aug, 2014 [facility] [address] [id number] [place] [address] Aug, [facility] [address] [id number] [place] [address] Aug, [facility] [address] [id number] [place] [address] Aug, [facility] [address] [facility] [id number] Aug, [facility] [address] [facility] [id number] [place] [address] Aug, [facility] [address] [id number] [place] [address] Aug, [facility] [address] [id number] [place] [address] Aug, [facility] [address] [facility] [id number] [place] [address] Aug, [facility] [address] [id number] [place] [address] Aug, [facility] [address] [id number] [place] [address] Aug, [facility] [address] [id number] [place] [address] Aug, [facility] [address] [id number] [place] [address] Aug, [facility] [address] [id number] [place] [address] Aug, [facility] [address] [id number] [place] [address] Aug, [facility] [address] [facility] [id number] [place] [address] Aug, [facility] [address] [facility] [id number] [place] [address] Aug, [facility] [address] [id number] [place] [address] Aug, [facility] [address] [id number] [place] [address] Aug, [facility] [address] [id number] [place] [address] Aug, [facility] [address] [id number] [place] [address] Aug, [facility] [address] [id number] [place] [address] Aug, [facility] [address] [id number] [place] [address] Aug, [facility] [address] [id number] [place] [address] Jul, [facility] [address] [id number] [place] [address] Jul, [facility] [address] [id number] [place] [address] Jul, [facility] [address] [id number] [place] [address] Jul, [facility] [address] [id number] [place] [address] Jul, [facility] [address] [id number] [place] [address] Jul, [facility] [address] [id number] [place] [address] Jul, [facility] [address] [id number] [place] [address] Jul, [facility] [address] [id number] [place] [address] Jul, [facility] [address] [id number] [place] [address] Jul, [facility] [address] [id number] [place] [address] Jun, [facility] [address] [id number] [place] [address] Jun, [facility] [address] [id number] [place] [address] Jun, [facility] [address] [id number] [place] [address] 16 Jun, 2014 [facility] [address] [facility] [id number] [place] [address] 15 Jun, 2014 [facility] [address] [id number] [place] [address] 15 Jun, 2014 [facility] [address] [id number] [place] [address] Jun, [facility] [address] [id number] [place] [address] Jun, [facility] [address] [id number] [place] [address] Jun, [facility] [address] [id number] [place] [address] Jun, [facility] [address] [id number] [place] [address] 29 May, 2014 [facility] [address] [id number] [place] [address] 29 May, 2013 [facility] [address] [id number] [place] [address] 26 May, 2013 [facility] [address] [id number] [place] [address] 26 May, 2013 [facility] [address] [id number] [place] [address] 17 May, 2013 [facility] [id number] [place] [address] 17 May, 2013 [facility] [place] [facility] [id number] [place] [address] 15 Sep, 2013 [facility] [place] [facility] [id number] [place] [address] 15 Sep, 2013 [facility] [place] [facility] [id number] [place] [address] 15 May, 2013 [facility] [place] [facility] [id number] [place] [address] 15 May, 2013 [facility] [place] [facility] [address] [id number] [facility] [place] [address] May, 2013 [facility] [place] [facility] [address] [id number] [place] [address] May, 2013 [facility] [place] [facility] [address] [facility] [id number] [place] [address] May, 2013 [facility] [place] [facility] [address] [id number] [place] [address] May, 2013 [facility] [place] [facility] [address] [id number] [place] [address] May, 2013 [facility] [place] [facility] [address] [id number] [place] [address] May, [facility] [place] [facility] [id number] [place] [address] Apr, [facility] [place] [facility] [id number] [place] [address] Apr, [facility] [place] [facility] [address] [id number] [place] [address] Apr, [facility] [place] [facility] [address] [id number] [place] [address] Apr, [facility] [place] [facility] [id number] [place] [address] Apr, [facility] [place] [facility] [id number] [place] [address] Apr, [facility] [place] [facility] [address] [id number] [place] [address] Apr, [facility] [place] [facility] [address] [id number] [place] [address] Apr, [facility] [place] [facility] [address] [id number] [place] [address] Apr, [facility] [place] [facility] [id number] [place] [address] Apr, [facility] [place] [facility] [id number] [place] [address] Apr, [facility] [place] [facility] [address] [id number] [facility] [place] [address] Apr, [facility] [place] [facility] [address] [facility] [id number] [place] [address] Apr, [facility] [place] [facility] [address] [facility] [id number] [facility] [place] [address] Apr, [facility] [place] [facility] [address] [facility] [id number] [place] [address] Apr, [facility] [place] [facility] [address] [facility] [id number] [place] [address] Mar, [facility] [place] [facility] [address] [facility] [id number] [place] [address] Mar, [facility] [place] [facility] [address] [facility] [id number] [facility] [place] [address] Mar, [facility] [place] [facility] [id number] [facility] [place] [address] Mar, [facility] [place] [facility] [address] [facility] [id number] [place] [address] Mar, [facility] [place] [facility] [id number] [facility] [place] [address] Mar, [facility] [place] [facility] [address] [facility] [id number] [facility] [place] [address] Mar, [facility] [place] [facility] [id number] [place] [address] Mar, [facility] [place] [facility] [address] [facility] [id number] [facility] [place] [address] Mar, [facility] [place] [facility] [address] [id number] [facility] [place] [address] Mar, [facility] [place] [facility] [address] [facility] [id number] [place] [address] Mar, [facility] [place] [facility] [id number] [facility] [place] [address] Mar, 2013 [facility] [place] [facility] [address] [id number] [facility] [place] [address] Mar, 2013 [facility] [place] [facility] [address] [facility] [id number] [facility] [address] Mar, 2013 [facility] [place] [facility] [address] [facility] [id number] [place] [address] Mar, 2013 [facility] [place] [facility] [address] [id number] [place] [address] Mar, 2013 [facility] [place] [facility] [address] [facility] [id number] [place] [address] Mar, 2013 [facility] [place] [facility] [address] [facility] [id number] [facility] [place] [address] Mar, [facility] [place] [facility] [address] [id number] [place] [address] Feb, [facility] [place] [facility] [address] [id number] [place] [address] Feb, [facility] [place] [facility] [address] [id number] [place] [address] Feb, [facility] [place] [facility] [address] [facility] [id number] [place] [address] Feb, [facility] [place] [facility] [address] [id number] [place] [address] Feb, [facility] [place] [facility] [address] [id number] [place] [address] Feb, [facility] [place] [facility] [address] [id number] [place] [address] Feb, [facility] [place] [facility] [address] [facility] [id number] [place] [address] Feb, [facility] [place] [facility] [address] [id number] [place] [address] Feb, [facility] [place] [facility] [address] [facility] [id number] [place] [address] Feb, [facility] [place] [facility] [address] [id number] [place] [address] Feb, [facility] [place] [facility] [address] [id number] [place] [address] Feb, [facility] [place] [facility] [address] [id number] [place] [address] Feb, [facility] [place] [facility] [address] [id number] [place] [address] Feb, [facility] [place] [facility] [address] [id number] [place] [address] January, [facility] [place] [facility] [address] [facility] [id number] [place] [address] January, [facility] [place] [facility] [address] [id number] [place] [address] January, [facility] [place] [facility] [address] [id number] [place] [address] January, [facility] [place] [facility] [address] [id number] [place] [address] January, [facility] [place] [facility] [address] [id number] [place] [address] January, [facility] [place] [facility] [address] [id number] [place] [address] January, [facility] [place] [facility] [address] [id number] [place] [address] January, [facility] [place] [facility] [address] [id number] [place] [address] January, [facility] [place] [facility] [address] [id number] [place] [address] January, [facility] [place] [facility] [address] [id number] [place] [address] January, [facility] [place] [facility] [address] [id number] [place] [address] January, [facility] [place] [facility] [address] [id number] [place] [address] January, [facility] [place] [facility] [address] [id number] [place] [address] January, [facility] [place] [facility] [address] [facility] [id number] [facility] [place] [address] Dec, [facility] [place] [facility] [address] [facility] [id number] [place] [address] Dec, [facility] [place] [facility] [address] [facility] [id number] [facility] [place] [address] Dec, [facility] [place] [facility] [address] [facility] [id number] [place] [address] Dec, [facility] [place] [facility] [address] [facility] [id number] [place] [address] Dec, [facility] [place] [facility] [address] [id number] [place] [address] Dec, [facility] [place] [facility] [address] [id number] [facility] [place] [address] Dec, [facility] [place] [facility] [address] [id number] [facility] [place] [address] Dec, [facility] [place] [facility] [address] [facility] [id number] [facility] [place] [address] Dec, [facility] [place] [facility] [address] [id number] [facility] [place] [address] Dec, [facility] [place] [facility] [address] [id number] [place] [address] Nov, [facility] [place] [facility] [address] [id number] [place] [address] Nov, [facility] [place] [facility] [address] [id number] [facility] [place] [address] Nov, [facility] [place] [facility] [address] [id number] [place] [address] Nov, [facility] [place] [facility] [address] [id number] [place] [address] Nov, [facility] [place] [facility] [address] [id number] [facility] [place] [address] Nov, [facility] [place] [facility] [address] [id number] [place] [address] 05 Nov, 2013 [facility] [place] [facility] [address] [facility] [id number] [place] [address] Nov, [facility] [place] [facility] [address] [id number] [place] [address] Nov, [facility] [place] [facility] [address] [id number] [place] [address] Nov, [facility] [place] [facility] [address] [id number] [place] [address] Oct, [facility] [place] [facility] [address] [id number] [place] [address] Oct, [facility] [place] [facility] [address] [id number] [place] [address] Oct, [facility] [place] [facility] [address] [id number] [place] [address] Oct, [facility] [place] [facility] [address] [id number] [place] [address] Oct, [facility] [place] [facility] [address] [id number] [place] [address] Oct, [facility] [place] [facility] [address] [id number] [place] [address] Oct, [facility] [place] [facility] [address] [id number] [place] [address] Oct, [facility] [place] [facility] [address] [id number] [place] [address] Oct, [facility] [place] [facility] [address] [id number] [place] [address] Oct, [facility] [place] [facility] [address] [id number] [place] [address] Oct, [facility] [place] [facility] [address] [id number] [place] [address] Oct, [facility] [place] [facility] [address] [id number] [place] [address] Oct, [facility] [place] [facility] [address] [id number] [place] [address] Oct, [facility] [place] [facility] [address] [id number] [place] [address] Sep, [facility] [place] [facility] [address] [id number] [place] [address] Sep, [facility] [place] [facility] [address] [id number] [place] [address] Sep, [facility] [place] [facility] [address] [facility] [id number] [place] [address] Sep, [facility] [place] [facility] [address] [id number] [place] [address] Sep, [facility] [place] [facility] [address] [id number] [place] [address] Sep, [facility] [place] [facility] [address] [id number] [place] [address] Sep, [facility] [place] [facility] [address] [id number] [place] [address] Sep, [facility] [place] [facility] [address] [id number] [place] [address] Sep, [facility] [place] [facility] [address] [id number] [place] [address] Sep, [facility] [place] [facility] [address] [id number] [place] [address] Aug, [facility] [place] [facility] [address] [id number] [place] [address] Aug, [facility] [place] [facility] [address] [id number] [place] [address] Jul, [facility] [place] [facility] [address] [id number] [place] [address] Jul, [facility] [place] [facility] [address] [id number] [place] [address] Jul, [facility] [place] [facility] [address] [id number] [place] [address] 13 Jul, 2013 [facility] [place] [facility] [address] [id number] [place] [address] Jul, [facility] [place] [facility] [address] [id number] [place] [address] Jul, [facility] [place] [facility] [address] [id number] [place] [address] Jul, [facility] [place] [facility] [address] [id number] [place] [address] Jul, [facility] [place] [facility] [address] [id number] [place] [address] Jul, [facility] [place] [facility] [address] [id number] [place] [address] Jul, [facility] [place] [facility] [address] [id number] [place] [address] Jul, [facility] [place] [facility] [address] [id number] [place] [address] Jul, [facility] [place] [facility] [address] [id number] [place] [address] Jul, [facility] [place] [facility] [address] [id number] [place] [address] Jul, [facility] [place] [facility] [address] [id number] [place] [address] Jul, [facility] [place] [facility] [address] [id number] [place] [address] Jul, [facility] [place] [facility] [address] [id number] [place] [address] Jul, [facility] [place] [facility] [id number] [place] [address] Jul, [facility] [place] [facility] [address] [id number] [place] [address] Jul, [facility] [place] [facility] [address] [id number] [place] [address] 16 Jun, 2013 [facility] [place] [facility] [address] [facility] [id number] [place] [address] 16 Jun, 2012 [facility] [place] [facility] [address] [facility] [id number] [place] [address] 16 Jun, 2012 [facility] [place] [facility] [address] [facility] [id number] [place] [address] 16 Jun, 2012 [facility] [place] [facility] [address] [id number] [place] [address] 16 Jun, 2012 [facility] [place] [facility] [address] [facility] [id number] [place] [address] 16 Jun, 2012 [facility] [place] [facility] [address] [id number] [place] [address] 10 Jun, 2012 [facility] [place] [facility] [address] [id number] [place] [address] 10 Jun, 2012 [facility] [place] [facility] [address] [id number] [place] [address] 09 Jun, 2012 [facility] [place] [facility] [address] [id number] [place] [address] 09 Jun, 2012 [facility] [place] [facility] [address] [id number] [place] [address] Jun, 2012 [facility] [place] [facility] [address] [id number] [place] [address] 26 Sep, 2012 [facility] [place] [facility] [address] [id number] [place] [address] 25 Sep, 2012 [facility] [place] [facility] [address] [id number] [place] [address] 19 Sep, 2012 [facility] [place] [facility] [address] [facility] [id number] [place] [address] 17 Sep, 2012 [facility] [place] [facility] [address] [id number] [place] [address] 11 Sep, 2012 [facility] [place] [facility] [address] [id number] [place] [address] 10 Sep, 2012 [facility] [place] [facility] [address] [id number] [place] [address] May, [facility] [place] [facility] [address] [facility] [id number] [facility] [place] [address] May, [facility] [place] [facility] [address] [facility] [id number] [facility] [place] [address] Apr, [facility] [place] [facility] [address] [id number] [place] [address] Apr, [facility] [place] [facility] [address] [id number] [place] [address] Apr, [facility] [place] [facility] [address] [facility] [id number] [facility] [place] [address] Apr, [facility] [place] [facility] [address] [id number] [place] [address] Apr, [facility] [place] [facility] [address] [id number] [place] [address] Mar, [facility] [place] [facility] [address] [id number] [place] [address] Mar, [facility] [place] [facility] [address] [id number] [place] [address] Mar, [facility] [place] [facility] [address] [id number] [place] [address] Mar, [facility] [place] [facility] [address] [id number] [place] [address] Mar, [facility] [place] [facility] [address] [id number] [place] [address] Mar, [facility] [place] [facility] [address] [id number] [place] [address] Mar, [facility] [place] [facility] [address] [id number] [place] [address] Mar, [facility] [place] [facility] [address] [id number] [place] [address] Feb, [facility] [place] [facility] [address] [id number] [place] [address] Feb, [facility] [place] [facility] [address] [id number] [place] [address] January, [facility] [address] [id number] [place] [address] January, [facility] [place] [facility] [address] [id number] [place] [address] Dec, [facility] [place] [facility] [address] [id number] [place] [address] Dec, [facility] [place] [facility] [address] [id number] [place] [address] Nov, [facility] [place] [facility] [address] [id number] [place] [address] Nov, [facility] [place] [facility] [address] [id number] [place] [address] Nov, [facility] [place] [facility] [address] [id number] [place] [address] Nov, [facility] [place] [facility] [address] [id number] [place] [address] Oct, [facility] [place] [facility] [address] [id number] [place] [address] Oct, [facility] [place] [facility] [address] [id number] [place] [address] Oct, [facility] [place] [facility] [address] [id number] [place] [address] 26 Oct, 2012 [facility] [place] [facility] [address] [id number] [place] [address] 16 Oct, 2012 [facility] [place] [facility] [address] [id number] [place] [address] 14 Oct, 2012 [facility] [place] [facility] [address] [id number] [place] [address] 08 Oct, 2012 [facility] [place] [facility] [address] [id number] [place] [address] 07 Oct, 2012 [facility] [place] [facility] [address] [id number] [place] [address] Oct, [facility] [address] [id number] [place] [address] Sep, [facility] [place] [facility] [address] [id number] [place] [address] Sep, [facility] [place] [facility] [address] [id number] [place] [address] Sep, [facility] [place] [facility] [address] [id number] [place] [address] Sep, [facility] [place] [facility] [address] [id number] [place] [address] Sep, [facility] [place] [facility] [address] [id number] [place] [address] Sep, [facility] [place] [facility] [address] [id number] [place] [address] Sep, [facility] [place] [facility] [address] [id number] [place] [address] Sep, [facility] [place] [facility] [address] [id number] [place] [address] Aug, [facility] [place] [facility] [address] [id number] [place] [address] 31 Aug, 2012 [facility] [place] [facility] [address] [id number] [place] [address] Aug, [facility] [place] [facility] [address] [id number] [place] [address] Aug, [facility] [place] [facility] [address] [id number] [place] [address] Aug, [facility] [place] [facility] [address] [id number] [place] [address] Aug, [facility] [place] [facility] [address] [id number] [place] [address] Aug, [facility] [place] [facility] [address] [id number] [place] [address] Aug, [facility] [place] [facility] [address] [id number] [place] [address] Jul, [facility] [place] [facility] [address] [id number] [place] [address] Jul, [facility] [place] [facility] [address] [id number] [place] [address] Jul, [facility] [place] [facility] [address] [id number] [place] [address] Jul, [facility] [place] [facility] [address] [id number] [place] [address] Jul, [facility] [place] [facility] [address] [id number] [place] [address] Jul, [facility] [place] [facility] [address] [id number] [place] [address] Jun, [facility] [place] [facility] [address] [id number] [place] [address] Jun, [facility] [place] [facility] [id number] [place] [address] Jun, [facility] [place] [facility] [address] [id number] [place] [address] Jun, [facility] [place] [facility] [address] [id number] [place] [address] Jun, [facility] [place] [facility] [address] [id number] [place] [address] Jun, [facility] [place] [facility] [address] [id number] [place] [address] Jun, [facility] [place] [facility] [address] [id number] [place] [address] 10 Jun, 2012 [facility] [place] [facility] [id number] [place] [address] 10 Jun, 2012 [facility] [place] [facility] [address] [id number] [place] [address] 26 May, 2012 [facility] [place] [facility] [address] [id number] [place] [address] May, [facility] [place] [facility] [address] [id number] [place] [address] May, [facility] [place] [facility] [address] [id number] [place] [address] Apr, [facility] [place] [facility] [address] [id number] [place] [address] Apr, [facility] [place] [facility] [address] [id number] [place] [address] Apr, [facility] [place] [facility] [address] [id number] [place] [address] Apr, [facility] [place] [facility] [address] [id number] [place] [address] Apr, [facility] [place] [facility] [address] [id number] [place] [address] Apr, [facility] [place] [facility] [address] [id number] [place] [address] Mar, [facility] [place] [facility] [address] [id number] [place] [address] Mar, [facility] [place] [facility] [address] [id number] [place] [address] Mar, [facility] [place] [facility] [address] [id number] [place] [address] Mar, [facility] [place] [facility] [address] [id number] [place] [address] Feb, [facility] [place] [facility] [address] [id number] [place] [address] Feb, [facility] [place] [facility] [address] [id number] [place] [address] Feb, [facility] [address] [id number] [place] [address] Feb, [facility] [address] [id number] [place] [address] Feb, [facility] [address] [id number] [place] [address] January, [facility] [address] [id number] [place] [address] January, [facility] [address] [id number] [place] [address] January, [facility] [address] [id number] [place] [address] January, [facility] [address] [id number] [place] [address] January, [facility] [address] [facility] [id number] [place] [address] January, [facility] [address] [id number] [place] [address] Dec, [facility] [address] [id number] [place] [address] Dec, [facility] [address] [id number] [place] [address] Dec, [facility] [address] [id number] [place] [address] Dec, [facility] [address] [id number] [place] [address] Dec, [facility] [address] [id number] [place] [address] Nov, [facility] [address] [id number] [place] [address] Nov, [facility] [address] [id number] [place] [address] Nov, [facility] [address] [id number] [place] [address] Nov, [facility] [address] [id number] [place] [address] Oct, [facility] [address] [id number] [place] [address] Oct, [facility] [address] [id number] [place] [address] Oct, [facility] [address] [id number] [place] [address] Oct, [facility] [address] [id number] [place] [address] Oct, [facility] [address] [id number] [place] [address] Sep, [facility] [address] [id number] [place] [address] Sep, [facility] [address] [id number] [place] [address] Sep, [facility] [address] [id number] [place] [address] Sep, [facility] [id number] [place] [address] Sep, [facility] [address] [id number] [place] [address] Sep, [facility] [address] [id number] [place] [address] Aug, [facility] [address] [id number] [place] [address] Aug, [facility] [address] [id number] [place] [address] Aug, [facility] [address] [id number] [place] [address] Jul, [facility] [address] [id number] [place] [address] Jul, [facility] [id number] [place] [address] Jul, [facility] [address] [id number] [place] [address] Jul, [facility] [address] [id number] [place] [address] Jun, [facility] [address] [id number] [place] [address] 31 Jun, 2011 [facility] [address] [id number] [place] [address] 18 Jun, 2011 [facility] [address] [id number] [place] [address] 10 Jun, 2011 [facility] [address] [id number] [place] [address] 10 Jun, 2011 [facility] [address] [facility] [id number] [place] [address] 10 Jun, 2011 [facility] [address] [id number] [place] [address] 11 Mar, 2011 [facility] [address] [id number] [place] [address] 18 Dec, 2010 [facility] [address] [id number] [place] [address] 11 Dec, 2010 [facility] [address] [id number] [place] [address] 18 Nov, 2010 [facility] [address] [id number] [place] [address] 16 Nov, 2010 [facility] [address] [id number] [place] [address] Sep, [facility] [address] [id number] [place] [address] Aug, [facility] [address] [id number] [place] [address] 29 Aug, 2010 [facility] [address] [id number] [place] [address] Aug, [facility] [address] [id number] [place] [address] Aug, [facility] [address] [id number] [place] [address] 27 Aug, 2010 [facility] [address] [id number] [place] [address] 14 Aug, 2010 [facility] [address] [id number] [place] [address] 08 Aug, 2010 [facility] [address] [id number] [place] [address] 08 Aug, 2010 [facility] [address] [id number] [place] [address] 07 Aug, 2010 [facility] [address] [id number] [place] [address] Aug, [facility] [address] [id number] [place] [address] Aug, [facility] [address] [id number] [place] [address] Aug, [facility] [address] [id number] [place] [address] Jul, [facility] [address] [id number] [place] [address] Jul, [facility] [address] [id number] [place] [address] Jul, [facility] [address] [id number] [place] [address] Jul, [facility] [address] [id number] [place] [address] Jul, [facility] [address] [id number] [place] [address] Jul, [facility] [address] [id number] [place] [address] 24 Jun, 2010 [facility] [address] [id number] [place] [address] Jun, [facility] [address] [id number] [place] [address] Jun, [facility] [address] [id number] [place] [address] 13 Jun, 2010 [facility] [address] [id number] [place] [address] 16 Apr, 2010 [facility] [address] [id number] [place] [address] 20 Mar, 2010 [facility] [address] [id number] [place] [address] 17 Feb, 2010 [facility] [address] [id number] [place] [address] January, [facility] [address] [id number] [place] [address] 15 Dec, 2009 [facility] [address] [id number] [place] [address] Nov, [facility] [address] [id number] [place] [address] Aug, [facility] [address] [id number] [place] [address] Aug, [facility] [address] [id number] [place] [address] Aug, [facility] [id number] [place] [address] Jul, [facility] [id number] [place] [address] Jul, [facility] [id number] [place] [address] Jul, [facility] [id number] [place] [address] 30 Jun, 2009 [facility] [id number] [place] [address] 29 Jun, 2009 [facility] [id number] [place] [address] Jun, [facility] [id number] [place] [address] Jun, [facility] [id number] [place] [address] Jun, [facility] [id number] [place] [address] Jun, [facility] [id number] [place] [address] Apr, [facility] [id number] [place] [address] Apr, [facility] [id number] [place] [address] Feb, [facility] [id number] [place] [address] January, [facility] [id number] [place] [address] Dec, IMMUNIZATIONS No Known Immunizations SOCIAL HISTORY [...] History inability to urinate 09/16/15 Hospitalization History [facility] mental health e[facility] 1999' Hospitalization History hyperkalemia 10/2017 Hospitalization History fluid in lung
--- OUTSIDE RECORDS SUMMARY | 2020-03-01 16:48 | XMS REPORT ---
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 Name Role Phone NOEMI WASHBURN Unavailable PROBLEMS Type Condition ICD9-CM Code BUE27-VP Code Onset Dates Condition S tatus SNOMED Code Problem DM neuro manif type II E11.49 Active 05348010 Problem Chronic pain G89.29 Active 9754865 1 Problem Diabetes E11.9 Active 59658387 Problem Reactive airway disease J45.909 Active 599790194180 Problem Leukocytosis D72.829 Active 5306831 06 Problem Insomnia, unspecified type G47.00 Act sharon 991262421 Problem Bipolar I disorder, most recent episode (or curr ent) mixed, moderate F31.62 Active 80289404 Problem Primary osteoarthritis of right knee M17.11 Active 521839814313753 Problem Cough R05 Active 43895292 Problem Pure hypercholesterolemia E78.00 Acti ve 087564767 Problem Dysuria R30.0 Active 88012673 Problem Benign prostatic hyperplasia with lower urinary tract symptoms, unspecified morphology N40.1 Active 32894 6007 Problem Eustachian tube dysfunction, unspecified laterality H69.80 Active 94399119 Problem Polyneuropathy associated with underlying disease G63 Active 872431013 Problem Diabetic polyneuropathy associated with type 2 d iabetes mellitus E11.42 Active 66282136 Problem Anemia of chronic illness D63.8 Acti ve 358081001 Problem Chronic lymphocytic leukemia C91.10 A ctive 77034553 Problem Bilateral primary osteoarthritis of knee M17.0 Active 889257051 Problem 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 Active 985391857 Problem Eye exam abnormal R93.8 Active 16 6114136 Problem Retinal edema H35.81 Active 251194 6 Problem Lymphocytosis D72.820 Active 730044 09 Problem Bipolar disorder, in partial remission, most rec ent episode depressed F31.75 Active 76005353 Problem Hypokalemia E87.6 Active 75008452 Problem Falling R29.6 Active 274953003 Problem Pressure ulcer of other site, stage 3 L89.893 Active 557282318 Problem Other iron deficiency anemia D50.8 A ctive 89490418 Problem Mild cognitive impairment G31.84 Acti ve 571469134 Problem Skin cancer C44.90 Active 67786060 7 Problem skilled nursing (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 Z79.4 Active 619240441 Problem Morbid obesity E66.01 Active 76527 6002 Problem Mood disorder F39 Active 357422 05 Problem Anxiety F41.9 Active 69203814 Problem Essential hypertension I10 Active 44407014 Problem Bipolar disorder F31.9 Active 137 94112 Problem Chronic diastolic (congestive) heart failure I50.3 2 Active 870410017 Problem Psychophysiological insomnia F51.04 A ctive 653073501 Problem Type 2 diabetes mellitus with diabetic neuropathy, uns pecified E11.40 Active 92823037 ALLERGIES No Information ENCOUNTERS Encounter Location Date Diagnosis [place] [address] [address] 06 Dec, 2019 [place] [address] [address] Nov, [place] [address] [address] Nov, [place] [address] [address] Nov, [place] [address] [address] Oct, [facility] [address] [address] Oct, [place] [address] [address] Oct, Bipolar disorder, in partial remission, most recent episode depressed F31.75 and Mild cognitive impairment G31.84 [place] [address] [address] 04 Oct, 2019 Mood disorder F39 [place] [address] [address] Sep, [facility] [address] [id number] [place] [address] Sep, Mood disorder F39 [facility] [address] [place] [id number] [place] [address] Sep, Bipolar disorder, in partial remission, most recent episode depressed F31.75 and Mild cognitive impairment G31.84 [facility] [address] [place] [id number] [place] [address] Sep, Mood disorder F39 [facility] [address] [place] [id number] [place] [address] Sep, [facility] [address] [place] [id number] [place] [address] Sep, Mood disorder F39 [facility] [address] [place] [id number] [place] [address] Sep, [facility] [address] [place] [id number] [place] [address] Aug, Mood disorder F39 [facility] [address] [place] [id number] [place] [address] Aug, [facility] [address] [place] [id number] [place] [address] Aug, [facility] [address] [place] [id number] [place] [address] Aug, [facility] [address] [place] [id number] [place] [address] Aug, [facility] [address] [id number] [place] [address] Aug, [facility] [address] [place] [id number] [place] [address] Aug, [facility] [address] [id number] [place] [address] Aug, [facility] [address] [place] [id number] [place] [address] Aug, Essential hypertension I10 [facility] [address] [id number] [place] [address] Aug, Bipolar disorder, in partial remission, most recent episode depressed F31.75 and Mild cognitive impairment G31.84 [facility] [address] [place] [id number] [place] [address] Aug, Mood disorder F39 [facility] [address] [place] [id number] [place] [address] Aug, [facility] [address] [place] [id number] [place] [address] Aug, Bipolar disorder, in partial remission, most recent episode depressed F31.75 and Mild cognitive impairment G31.84 [facility] [address] [place] [id number] [place] [address] Jul, Bipolar disorder, in partial remission, most recent episode depressed F31.75 and Mild cognitive impairment G31.84 [facility] [address] [place] [id number] [place] [address] Jul, Psychophysiological insomnia F51.04 [facility] [address] [place] [id number] [place] [address] Jul, [facility] [address] [place] [id number] [place] [address] Jul, [facility] [address] [place] [id number] [place] [address] Jul, [facility] [address] [place] [id number] [place] [address] Jul, [facility] [address] [place] [id number] [place] [address] Jul, [facility] [address] [place] [id number] [place] [address] Jul, [facility] [address] [place] [id number] [place] [address] Jul, Bipolar disorder, in partial remission, most recent episode depressed F31.75 and Mild cognitive impairment G31.84 [place] [address] [address] Jul, Chronic pain G89.29 ; Diabetes E11.9 ; E ssential hypertension I10 ; Ill feeling R68.89 ; Local infection of the skin and subcutaneous tissue, unspecified L08.9 and Other injury of unspecified body region, initial encounter T14.8XXA [place] [address] [address] Jun, Bipolar disorder, in partial remission, most recent episode depressed F31.75 and Mild cognitive impairment G31.84 [place] [address] [address] Jun, [place] [address] [address] Jun, Bipolar disorder, in partial remission, most recent episode depressed F31.75 and Mild cognitive impairment G31.84 [place] [address] [address] Jun, Psychophysiological insomnia F51.[address] [address] Jun, Psychophysiological insomnia F51.04 ; Ch ronic pain G89.29 ; Bipolar I disorder, most recent episode (or current) mixed, moderate F31.62 ; 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 ; Polyneuropathy associated with underlying disease G63 ; Type 2 diabetes mellitus with diabetic neuropathy, unspecified E11.40 ; 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 and Hyperglycemia R73.9 [place] [address] [address] Jun, Bipolar disorder, in partial remission, most recent episode depressed F31.75 and Mild cognitive impairment G31.84 [place] [address] [address] Jun, [place] [address] [address] Jun, Bipolar disorder F31.9 [facility] [address] [address] May, Bipolar disorder, in partial remission, most recent episode depressed F31.75 and Mild cognitive impairment G31.84 [facility] [address] [address] May, [facility] [address] [address] Apr, Chronic pain G89.29 and Bipolar disorder F31.9 [facility] [address] [address] Mar, Bipolar disorder F31.9 and Chronic pain G89.29 [facility] [address] [address] Feb, Bipolar disorder F31.9 [facility] [address] [address] Feb, Cellulitis of right upper extremity L03. 113 and Skin abrasion T14.8XXA [facility] [address] [address] Feb, Bipolar disorder, in partial remission, most recent episode depressed F31.75 and Mild cognitive impairment G31.84 [facility] [address] [address] Feb, Chronic pain G89.29 [facility] [address] [address] Feb, Bipolar disorder, in partial remission, most recent episode depressed F31.75 and Mild cognitive impairment G31.84 [facility] [address] [address] January, Bipolar disorder, in partial remission, most recent episode depressed F31.75 and Mild cognitive impairment G31.84 [facility] [address] [address] January, Chronic pain G89.29 and Bipolar disorder F31.9 [place] [address] [place] [id number] [place] [address] January, Bipolar disorder, in partial remission, most recent episode depressed F31.75 and Mild cognitive impairment G31.84 [facility] [address] [place] [id number] [place] [address] Dec, [facility] [address] [address] Dec, Chronic pain G89.29 and Bipolar disorder F31.9 [place] [address] [address] Dec, Edema of both lower extremities R60.0 [place] [address] [address] Dec, Bipolar disorder F31.9 [place] [address] [address] Dec, Bipolar disorder, in partial remission, most recent episode depressed F31.75 and Mild cognitive impairment G31.84 [place] [address] [place] [id number] [place] [address] Nov, [place] [address] [address] Nov, Chronic pain G89.29 [place] [address] [address] Nov, Bipolar disorder, in partial remission, most recent episode depressed F31.75 and Mild cognitive impairment G31.84 [place] [address] [address] Nov, Bipolar disorder F31.9 [facility] [address] [address] 04 Nov, 2018 Encounter for Medicare annual [...] unspecified morphology N40.1 and Essential hypertension I10 [address] [address] Oct, Chronic pain G89.[address] [address] Oct, Diabetes E11.[address] [address] Oct, Bipolar I disorder, most recent episode (or current) mixed, moderate F31.62 and Mild cognitive impairment G31.[address] [address] Oct, Bipolar I disorder, most recent episode (or current) mixed, moderate F31.62 and Mild cognitive impairment G31.[address] [address] Sep, Bipolar I disorder, most recent episode (or current) mixed, moderate F31.62 and Mild cognitive impairment G31.[address] [address] Sep, [address] [address] Sep, Diabetes E11.9 ; Hypoxia R09.02 ; Hyperg lycemia R73.9 ; Therapeutic drug monitoring Z51.81 ; BMI 50.0-59.9, adult Z68.43 and Skin cancer C44.[address] [address] Sep, Chronic pain G89.[address] [address] Sep, Bipolar I disorder, most recent episode (or current) mixed, moderate F31.62 [facility] [address] [address] Sep, [facility] [address] [address] Sep, [facility] [address] [address] Aug, Chronic pain G89.29 [facility] [address] [address] Aug, Bipolar I disorder, most recent episode (or current) mixed, moderate F31.62 [facility] [address] [address] Aug, Bipolar I disorder, most recent episode (or current) mixed, moderate F31.62 and Mild cognitive impairment G31.84 [facility] [address] [address] Jul, [facility] [address] [address] Jul, Chronic pain G89.29 [facility] [address] [address] Jul, Bipolar I disorder, most recent episode (or current) mixed, moderate F31.62 and Mild cognitive impairment G31.84 [facility] [address] [address] Jul, Bipolar I disorder, most recent episode (or current) mixed, moderate F31.62 and MCI (mild cognitive impairment) G31.84 [facility] [address] [address] Jul, [facility] [address] [address] Jul, [facility] [address] [address] Jul, Bipolar I disorder, most recent episode (or current) mixed, moderate F31.62 [facility] [address] [place] [address] Jul, Chronic pain G89.29 [facility] [address] [address] Jun, Bipolar I disorder, most recent episode (or current) mixed, moderate F31.62 [facility] [address] [place] [id number] [place] [address] Jun, Pre-procedure lab exam Z01.812 [place] [address] [place] [id number] [place] [address] Jun, [facility] [address] [facility] [address] Jun, [place] [address] [place] [id number] [place] [address] Jun, [place] [address] [address] Jun, Forgetfulness R68.89 ; Pre-syncope R55 ; Localized edema R60.0 ; Other iron deficiency anemia D50.8 and BMI 50.0-59.9, adult Z68.43 [facility] [address] [address] Jun, Chronic pain G89.29 [facility] [address] [address] Jun, Chronic pain G89.29 [facility] [address] [address] Jun, Bipolar I disorder, most recent episode (or current) mixed, moderate F31.62 [facility] [address] [address] May, Chronic pain G89.29 [facility] [address] [address] Apr, [facility] [address] [address] Apr, Chronic pain G89.29 [place] [address] [address] Apr, Primary osteoarthritis of right knee M17 .11 [place] [address] [address] Mar, [place] [address] [address] Mar, BMI 50.0-59.9, adult Z68.43 and Bipolar disorder, in partial remission, most recent episode depressed F31.75 [place] [address] [address] Mar, Diabetes E11.9 ; Pure hypercholesterolem ia E78.00 ; Essential hypertension I10 ; Nausea with vomiting, unspecified R11.2 and Headache, unspecified headache type R51 [place] [address] [address] Mar, Bipolar I disorder, most recent episode (or current) mixed, moderate F31.62 [place] [address] [address] Mar, Bipolar I disorder, most recent episode (or current) mixed, moderate F31.62 [place] [address] [address] Mar, Chronic pain G89.29 [place] [address] [address] Mar, Bipolar I disorder, most recent episode (or current) mixed, moderate F31.62 [place] [address] [address] Feb, Bipolar I disorder, most recent episode (or current) mixed, moderate F31.62 [place] [address] [address] 14 Feb, 2018 Chronic pain G89.29 [place] [address] [address] 06 Feb, 2018 Decubitus ulcer of right foot, stage 3 L 89.893 and BMI 50.0-59.9, adult Z68.43 [place] [address] [address] Feb, Bipolar I disorder, most recent episode (or current) mixed, moderate F31.62 [place] [address] [address] Feb, [place] [address] [address] January, [place] [address] [address] January, Chronic pain G89.29 [place] [address] [address] January, Bipolar I disorder, most recent episode (or current) mixed, moderate F31.62 [place] [address] [address] January, Bipolar I disorder, most recent episode (or current) mixed, moderate F31.62 [place] [address] [address] Dec, Bipolar I disorder, most recent episode (or current) mixed, moderate F31.62 and BMI 50.0-59.9, adult Z68.43 [place] [address] [address] Dec, Bipolar I disorder, most recent episode (or current) mixed, moderate F31.62 [place] [address] [address] Dec, Chronic pain G89.29 [place] [address] [address] 18 Dec, 2017 DM neuro manif type II E11.49 ; Right fl ank pain R10.9 ; skilled nursing 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 Z79.891 ; Encounter for medication monitoring Z51.81 and BMI 50.0-59.9, adult Z68.43 [place] [address] [address] Dec, Bipolar I disorder, most recent episode (or current) mixed, moderate F31.62 [facility] [address] [address] Nov, Bipolar I disorder, most recent episode (or current) mixed, moderate F31.62 [place] [address] [address] Nov, Chronic pain G89.29 [place] [address] [address] Nov, Bipolar I disorder, most recent episode (or current) mixed, moderate F31.62 [place] [address] [address] Nov, Hypokalemia E87.6 [place] [address] [address] Nov, Bipolar I disorder, most recent episode (or current) mixed, moderate F31.62 [place] [address] [address] Oct, Chronic pain G89.29 [place] [address] [address] Oct, BMI 50.0-59.9, adult Z68.43 and Bipolar I disorder, most recent episode (or current) mixed, moderate F31.62 [place] [address] [address] Oct, Bipolar I disorder, most recent episode (or current) mixed, moderate F31.62 [place] [address] [address] Oct, [place] [address] [address] Oct, Hypokalemia E87.6 [place] [address] [address] Oct, DM neuro manif type II E11.49 [place] [address] [address] Oct, Bipolar I disorder, most recent episode (or current) mixed, moderate F31.62 [place] [address] [address] 20 Oct, 2017 Bipolar I disorder, most recent episode (or current) mixed, moderate F31.62 [place] [address] [address] 14 Oct, 2017 Hyperkalemia E87.5 ; Falling R29.6 ; BMI 50.0-59.9, adult Z68.43 and Acute left ankle pain M25.[address] [address] 08 Oct, 2017 DM neuro manif type II E11.[address] [address] Oct, [address] [address] Sep, Chronic pain G89.[address] [address] Sep, [address] [address] Sep, Bilateral primary osteoarthritis of knee M17.[address] [address] Sep, Generalized edema R60.[address] [address] Sep, Bipolar I disorder, most recent episode (or current) mixed, moderate F31.62 [place] [address] [address] 15 Sep, 2017 Hypoxia R09.02 ; Other hypervolemia E87. 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 ; Anemia of chronic illness D63.8 and BMI 50.0-59.9, adult Z68.43 [place] [address] [address] Sep, [place] [address] [address] Sep, Bipolar I disorder, most recent episode (or current) mixed, moderate F31.62 [place] [address] [address] Aug, Chronic pain G89.29 [place] [address] [address] Aug, Generalized edema R60.1 [place] [address] [address] Aug, [place] [address] [address] Aug, [place] [address] [address] Aug, Bipolar I disorder, most recent episode (or current) mixed, moderate F31.62 [place] [address] [address] Aug, Bipolar I disorder, most recent episode (or current) mixed, moderate F31.62 [place] [address] [address] 04 Aug, 2017 Chronic pain G89.29 [place] [address] [address] Jul, Bipolar I disorder, most recent episode (or current) mixed, moderate F31.62 [place] [address] [address] Jul, Bipolar I disorder, most recent episode (or current) mixed, moderate F31.62 and BMI 60.0-69.9, adult Z68.44 [facility] [address] [address] 16 Jul, 2017 Bipolar I disorder, most recent episode (or current) mixed, moderate F31.62 [facility] [address] [address] Jul, Chronic pain G89.29 [facility] [address] [address] Jul, Bipolar I disorder, most recent episode (or current) mixed, moderate F31.62 [facility] [address] [address] Jun, Polyneuropathy associated with underlyin g disease G63 and Diabetes E11.9 [facility] [address] [address] Jun, Bipolar I disorder, most recent episode (or current) mixed, moderate F31.62 [facility] [address] [address] Jun, Chronic pain G89.29 [facility] [address] [address] 27 May, 2017 Bipolar I disorder, most recent episode (or current) mixed, moderate F31.62 [facility] [address] [address] 21 May, 2017 Bipolar I disorder, most recent episode (or current) mixed, moderate F31.62 [facility] [address] [address] 20 May, 2017 Diabetic polyneuropathy associated with type 2 diabetes mellitus E11.42 [facility] [address] [address] 18 May, 2017 Bipolar I disorder, most recent episode (or current) mixed, moderate F31.62 [facility] [address] [address] 13 May, 2017 Bipolar I disorder, most recent episode (or current) mixed, moderate F31.62 [facility] [address] [address] May, Chronic pain G89.29 [facility] [address] [place] [address] Apr, Bipolar I disorder, most recent episode (or current) mixed, moderate F31.62 [facility] [address] [address] Apr, [place] [address] [place] [address] Apr, Chronic pain G89.29 and DM neuro manif t ype II E11.49 [place] [address] [address] Apr, [place] [address] [address] Apr, Bipolar I disorder, most recent episode (or current) mixed, moderate F31.62 [place] [address] [address] Apr, Chronic pain G89.29 [place] [address] [address] Apr, Iliotibial band syndrome, left M76.32 [place] [address] [address] Apr, Bipolar I disorder, most recent episode (or current) mixed, moderate F31.62 [place] [address] [address] Mar, Bipolar I disorder, most recent episode (or current) mixed, moderate F31.62 [place] [address] [address] Mar, Bipolar I disorder, most recent episode (or current) mixed, moderate F31.62 [place] [address] [address] Mar, [facility] [address] [address] Mar, Bipolar I disorder, most recent episode (or current) mixed, moderate F31.62 [facility] [address] [address] Mar, Chronic pain G89.29 [facility] [address] [address] Mar, Bipolar I disorder, most recent episode (or current) mixed, moderate F31.62 [facility] [address] [address] Mar, Bipolar I disorder, most recent episode (or current) mixed, moderate F31.62 [place] [address] [address] Mar, Acute pain of left knee M25.562 ; Left h ip pain M25.552 ; Generalized edema R60.1 and Tongue swelling R22.0 [place] [address] [address] Mar, [facility] [address] [address] Feb, Chronic pain G89.29 [facility] [address] [address] Feb, Diabetes E11.9 [place] [address] [address] January, Chronic pain G89.29 [facility] [address] [address] January, [facility] [address] [address] January, Bipolar I disorder, most recent episode (or current) mixed, moderate F31.62 [facility] [address] [address] Dec, Bipolar I disorder, most recent episode (or current) mixed, moderate F31.62 [place] [address] [address] Dec, Chronic pain G89.29 [facility] [address] [address] Dec, Bipolar I disorder, most recent episode (or current) mixed, moderate F31.62 [facility] [address] [address] Dec, Diabetes E11.9 ; Essential hypertension I10 ; Chronic pain G89.29 and Morbid obesity E66.01 [facility] [address] [address] Dec, [facility] [address] [address] Dec, Bipolar I disorder, most recent episode (or current) mixed, moderate F31.62 [place] [address] [address] Dec, Bipolar I disorder, most recent episode (or current) mixed, moderate F31.62 [facility] [address] [address] Nov, Chronic pain G89.29 [facility] [address] [address] Nov, Bipolar I disorder, most recent episode (or current) mixed, moderate F31.62 [facility] [address] [address] Nov, [facility] [address] [address] Nov, Bipolar I disorder, most recent episode (or current) mixed, moderate F31.62 [facility] [address] [address] Nov, Bipolar I disorder, most recent episode (or current) mixed, moderate F31.62 [facility] [address] [address] Nov, [place] [id number] [address] Nov, [facility] [address] [address] Nov, [facility] [address] [address] Oct, Chronic pain G89.29 [facility] [address] [address] Oct, Bipolar I disorder, most recent episode (or current) mixed, moderate F31.62 [facility] [address] [address] Oct, [facility] [address] [address] Oct, Chronic pain G89.29 ; Diabetes E11.9 ; A nxiety F41.9 and 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 [facility] [address] [address] Oct, [facility] [address] [address] Oct, Diabetes E11.9 [facility] [address] [address] Oct, Bipolar I disorder, most recent episode (or current) mixed, moderate F31.62 [facility] [address] [address] Sep, Chronic pain G89.29 [facility] [address] [address] Sep, Chronic pain G89.29 [facility] [address] [address] Aug, Chronic pain G89.29 [facility] [address] [address] Jul, [facility] [address] [address] Jul, Diabetes E11.9 [place] [address] [address] Jul, Chronic pain G89.29 [place] [address] [place] [id number] Jul, Bipolar I disorder, most recent episode (or current) mixed, moderate F31.62 [place] [address] [address] Jun, Bipolar I disorder, most recent episode (or current) mixed, moderate F31.62 [place] [address] [address] Jun, [place] [address] [address] Jun, Bipolar I disorder, most recent episode (or current) mixed, moderate F31.62 [place] [address] [address] May, Insomnia, unspecified type G47.00 [place] [address] [address] May, Bipolar I disorder, most recent episode (or current) mixed, moderate F31.62 [place] [address] [address] 14 May, 2016 [place] [address] [address] 08 May, 2016 Bipolar I disorder, most recent episode (or current) mixed, moderate F31.62 [place] [address] [address] 06 May, 2016 Diabetes E11.9 and Essential hypertensio n I10 [place] [address] [address] Apr, Chronic pain G89.29 [place] [address] [address] Apr, Bipolar I disorder, most recent episode (or current) mixed, moderate F31.62 [place] [address] [address] Apr, [place] [address] [address] Apr, [place] [address] [address] Mar, Chronic pain G89.29 ; Headache, unspecif ied headache type R51 ; Neuropathy G62.9 ; Pain of right hip joint M25.551 and Essential hypertension I10 [place] [address] [address] Mar, Chronic pain G89.29 [place] [address] [address] Mar, Bipolar I disorder, most recent episode (or current) mixed, moderate F31.62 [place] [address] [address] Feb, Bipolar I disorder, most recent episode (or current) mixed, moderate F31.62 and Insomnia, unspecified type G47.00 [place] [address] [address] Feb, Chronic pain G89.29 [place] [address] [address] Feb, Bipolar I disorder, most recent episode (or current) mixed, moderate F31.62 [place] [address] [address] January, Bipolar I disorder, most recent episode (or current) mixed, moderate F31.62 [place] [address] [address] January, Chronic pain G89.29 [place] [address] [address] January, Chronic pain G89.29 and Essential hypert ension I10 [facility] [address] [address] January, Bipolar I disorder, most recent episode (or current) mixed, moderate F31.62 [facility] [address] [address] Dec, [facility] [address] [address] Dec, [facility] [address] [address] Dec, [facility] [address] [address] Dec, [facility] [address] [address] Nov, Reactive airway disease J45.909 [place] [address] [address] Nov, [facility] [address] [address] Nov, [facility] [address] [address] Nov, [facility] [address] [address] Nov, [place] [address] [address] Nov, Onychomycosis B35.1 ; Hammertoe M20.40 ; [place] or callus L84 and DM neuro manif type II E11.49 [place] [address] [address] Nov, Chronic pain G89.29 ; Leukocytosis D72.8 29 and Diabetes E11.9 [facility] [address] [address] Nov, [facility] [address] [address] Oct, Bronchitis J40 [place] [address] [address] Oct, [place] [address] [address] Oct, [place] [address] [address] Oct, Mastoiditis, unspecified laterality H70. 90 and Type 2 diabetes mellitus with complication E11.8 [place] [address] [address] Sep, [address] [address] Sep, Dysuria R30.0 ; Cough R05 ; Benign prost atic hyperplasia with lower urinary tract symptoms, unspecified morphology N40.1 ; Hypokalemia E87.6 and Eustachian tube dysfunction, unspecified laterality H69.80 [place] [address] [address] Sep, Moderate mixed bipolar I disorder F31.[address] [address] Sep, Hypokalemia E87.[address] [address] Sep, [place] [address] [address] Sep, Upper respiratory tract infection, unspe cified type J06.9 [place] [address] [address] Aug, [address] [address] Aug, Dysuria R30.0 [place] [address] [address] Aug, [address] [address] Jul, [facility] [address] [place] [id number] [place] [address] Jul, [facility] [address] [place] [id number] [place] [address] Jul, [facility] [address] [place] [id number] [place] [address] Jul, [facility] [address] [address] Jun, [facility] [address] [place] [id number] [place] [address] Jun, [facility] [address] [place] [id number] [place] [address] Jun, [facility] [address] [place] [id number] [place] [address] May, [facility] [address] [place] [id number] [place] [address] May, Bipolar I disorder, most recent episode (or current) mixed, moderate 296.62 [facility] [address] [place] [id number] [place] [address] May, [facility] [address] [place] [id number] [place] [address] May, Bipolar I disorder, most recent episode (or current) mixed, moderate 296.62 and Major depressive disorder, recurrent episode, severe, specified as with psychotic behavior 296.34 [facility] [address] [place] [id number] [place] [address] May, Bipolar I disorder, most recent episode (or current) mixed, moderate 296.62 [facility] [address] [place] [id number] [place] [address] May, [facility] [address] [address] Apr, [facility] [address] [address] Apr, [facility] [address] [place] [id number] [place] [address] Apr, Unspecified disorder of kidney and urete r 593.9 and Diabetes mellitus type 2, uncontrolled 250.02 [facility] [address] [place] [id number] [place] [address] Apr, [facility] [address] [address] Apr, [facility] [address] [address] Apr, [facility] [address] [address] Apr, [facility] [address] [address] Apr, Diabetes mellitus type II, uncontrolled 250.02 [facility] [address] [address] Apr, [facility] [address] [address] Mar, [facility] [address] [address] Mar, [facility] [address] [address] Mar, [facility] [address] [address] Mar, Major depressive disorder, recurrent epi sode, severe, specified as with psychotic behavior 296.34 and Bipolar I disorder, most recent episode (or current) mixed, moderate 296.62 [facility] [address] [address] Mar, Diabetes 250.00 ; Anuria 788.5 ; Nausea and vomiting 787.01 and Diarrhea 787.91 [facility] [address] [address] Mar, Diabetes 250.00 [facility] [address] [place] [id number] [place] [address] Mar, [facility] [address] [address] Mar, Diabetes 250.00 [facility] [address] [address] Mar, [facility] [address] [address] Mar, [facility] [address] [address] Mar, [facility] [address] [address] Mar, [facility] [address] [address] Mar, Bipolar I disorder, most recent episode (or current) mixed, moderate 296.62 and Major depressive disorder, recurrent episode, severe, specified as with psychotic behavior 296.34 [facility] [address] [place] [address] Mar, Magnesium deficiency 275.2 ; Hypokalemia 276.8 ; Nausea & vomiting 787.01 and Diabetes mellitus type 2, uncontrolled 250.02 [facility] [address] [address] Feb, [address] [address] Feb, Bipolar I disorder, most recent episode (or current) mixed, moderate 296.62 [facility] [address] [address] Feb, Nausea and vomiting 787.01 ; Left elbow pain 719.42 ; Anuria 788.5 and Diabetes 250.00 [facility] [address] [address] Feb, [facility] [address] [place] [address] Feb, Hypopotassemia 276.8 and Hypokalemia 276 .8 [facility] [address] [address] Feb, Hypopotassemia 276.8 and Hypokalemia 276 .8 [facility] [address] [address] Feb, Seborrheic keratoses 702.19 [facility] [address] [address] Feb, Hypopotassemia 276.8 and Low magnesium l evels 275.2 [facility] [address] [address] January, [facility] [address] [address] January, [facility] [address] [address] January, [facility] [address] [address] January, Scalp lesion 709.9 [facility] [address] [address] January, [facility] [address] [address] Dec, Tear of medial cartilage or meniscus of knee, current 836.0 and 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 [facility] [address] [address] Dec, [facility] [address] [address] Dec, [facility] [address] [address] Dec, Squamous cell carcinoma, 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 42 [facility] [address] [address] 14 Dec, 2014 [facility] [address] [address] 13 Dec, 2014 [facility] [address] [id number] [place] [address] Nov, [facility] [address] [id number] [place] [address] Nov, [facility] [address] [id number] [place] [address] Nov, [facility] [address] [id number] [place] [address] Nov, [facility] [address] [id number] [place] [address] Nov, [facility] [address] [id number] [place] [address] Nov, [facility] [address] [id number] [place] [address] Nov, [facility] [address] [id number] [place] [address] Nov, [facility] [address] [id number] [place] [address] Nov, [facility] [address] [id number] [place] [address] Nov, [facility] [address] [id number] [place] [address] Nov, [facility] [address] [id number] [place] [address] Nov, [facility] [address] [id number] [place] [address] Oct, 2014 [facility] [address] [id number] [place] [address] Oct, 2014 [facility] [address] [id number] [place] [address] Oct, 2014 [facility] [address] [id number] [place] [address] Oct, 2014 [facility] [address] [id number] [place] [address] Oct, [facility] [address] [id number] [place] [address] Oct, [facility] [address] [id number] [place] [address] Oct, [facility] [address] [id number] [place] [address] Oct, [facility] [address] [id number] [place] [address] Oct, [facility] [address] [id number] [place] [address] Sep, [facility] [address] [id number] [place] [address] Sep, [facility] [address] [id number] [place] [address] Sep, [facility] [address] [id number] [place] [address] Sep, [facility] [address] [id number] [place] [address] Sep, [facility] [address] [id number] [place] [address] Sep, [facility] [address] [id number] [place] [address] Sep, [facility] [address] [id number] [place] [address] Sep, [facility] [address] [id number] [place] [address] Sep, [facility] [address] [id number] [place] [address] Sep, [facility] [address] [id number] [place] [address] Sep, [facility] [address] [id number] [place] [address] Sep, [facility] [address] [facility] [id number] [place] [address] Sep, [facility] [address] [facility] [id number] [place] [address] Sep, [facility] [address] [id number] [place] [address] Sep, [facility] [address] [id number] [place] [address] Sep, [facility] [address] [facility] [id number] [place] [address] Aug, [facility] [address] [id number] [place] [address] Aug, [facility] [address] [id number] [place] [address] Aug, [facility] [address] [id number] [place] [address] Aug, [facility] [address] [facility] [id number] [place] [address] Aug, [facility] [address] [id number] [place] [address] Aug, [facility] [address] [id number] [place] [address] Aug, [facility] [address] [id number] [place] [address] Aug, [facility] [address] [facility] [id number] [place] [address] Aug, [facility] [address] [id number] [place] [address] Aug, [facility] [address] [id number] [place] [address] Aug, [facility] [address] [place] [id number] Aug, [facility] [address] [id number] [facility] [address] 10 Aug, 2014 [facility] [address] [facility] [id number] [place] [address] Aug, [facility] [address] [id number] [place] [address] Aug, [facility] [address] [id number] [place] [address] Aug, [facility] [address] [id number] [place] [address] Aug, [facility] [address] [id number] [place] [address] Aug, [facility] [address] [id number] [place] [address] Aug, [facility] [address] [id number] [place] [address] 08 Aug, 2014 [facility] [address] [id number] [place] [address] Aug, [facility] [address] [id number] [place] [address] Aug, [facility] [address] [id number] [place] [address] Aug, [facility] [address] [id number] [place] [address] Aug, [facility] [address] [id number] [place] [address] Aug, [facility] [address] [id number] [place] [address] Aug, [facility] [address] [id number] [place] [address] Aug, [facility] [address] [id number] [place] [address] Aug, [facility] [address] [id number] [place] [address] Aug, [facility] [address] [id number] [place] [address] Aug, [facility] [address] [id number] [place] [address] Jul, [facility] [address] [id number] [place] [address] Jul, [facility] [address] [id number] [place] [address] Jul, [facility] [address] [id number] [place] [address] Jul, [facility] [address] [id number] [place] [address] Jul, [facility] [address] [id number] [place] [address] Jul, [facility] [address] [id number] [place] [address] Jul, [facility] [place] [facility] [address] [id number] [place] [address] Jul, [facility] [place] [facility] [address] [id number] [place] [address] Jul, [facility] [place] [facility] [address] [id number] [place] [address] Jul, [facility] [place] [facility] [address] [id number] [place] [address] Jun, [facility] [place] [facility] [address] [id number] [place] [address] Jun, [facility] [place] [facility] [address] [id number] [place] [address] Jun, [facility] [place] [facility] [id number] [place] [address] 16 Jun, 2014 [facility] [place] [facility] [address] [id number] [place] [address] 15 Jun, 2014 [facility] [place] [facility] [address] [id number] [place] [address] Jun, [facility] [place] [facility] [address] [facility] [id number] [place] [address] Jun, [facility] [place] [facility] [address] [id number] [place] [address] Jun, [facility] [place] [facility] [address] [id number] [place] [address] Jun, [facility] [place] [facility] [address] [id number] [place] [address] Jun, [facility] [place] [facility] [address] [facility] [id number] [place] [address] 29 May, 2013 [facility] [place] [facility] [address] [id number] [place] [address] 29 May, 2013 [facility] [place] [facility] [address] [id number] [place] [address] 26 May, 2013 [facility] [place] [facility] [address] [id number] [place] [address] 26 May, 2013 [facility] [place] [facility] [address] [id number] [place] [address] 17 Sep, 2013 [facility] [place] [facility] [address] [id number] [place] [address] 17 May, 2013 [facility] [place] [facility] [address] [id number] [place] [address] 15 Sep, 2013 [facility] [place] [facility] [address] [id number] [place] [address] 15 Sep, 2013 [facility] [place] [facility] [address] [id number] [place] [address] 15 Sep, 2013 [facility] [place] [facility] [address] [id number] [place] [address] 15 Sep, 2013 [facility] [place] [facility] [address] [id number] [place] [address] 10 May, 2013 [facility] [place] [facility] [address] [id number] [place] [address] 10 May, 2013 [facility] [place] [facility] [address] [id number] [place] [address] May, 2013 [facility] [place] [facility] [address] [id number] [place] [address] May, [facility] [place] [facility] [address] [facility] [id number] [facility] [address] May, [facility] [place] [facility] [address] [id number] [facility] [place] [address] May, [facility] [place] [facility] [address] [facility] [id number] [place] [address] Apr, [facility] [place] [facility] [address] [id number] [place] [address] Apr, [facility] [place] [facility] [address] [facility] [id number] [place] [address] Apr, [facility] [place] [facility] [address] [facility] [id number] [facility] [address] Apr, [facility] [address] [id number] [facility] [address] Apr, [facility] [address] [facility] [id number] [facility] [address] Apr, [facility] [address] [id number] [facility] [address] Apr, [facility] [address] [id number] [place] [address] Apr, [facility] [address] [id number] [facility] [address] Apr, [facility] [address] [facility] [id number] [facility] [address] Apr, [facility] [address] [id number] [facility] [address] Apr, [facility] [address] [facility] [id number] [facility] [address] Apr, [facility] [address] [id number] [facility] [address] Apr, [facility] [address] [id number] [facility] [address] Apr, [facility] [address] [facility] [id number] [place] [address] Apr, [facility] [address] [facility] [id number] [place] [address] Mar, [facility] [address] [facility] [id number] [place] [address] Mar, [facility] [address] [facility] [id number] [place] [address] Mar, [facility] [address] [facility] [id number] [place] [address] Mar, [facility] [address] [id number] [place] [address] Mar, [facility] [address] [id number] [place] [address] Mar, [facility] [address] [id number] [place] [address] Mar, [facility] [address] [facility] [id number] [place] [address] Mar, [facility] [address] [id number] [place] [address] Mar, [facility] [address] [id number] [place] [address] Mar, 2013 [facility] [address] [facility] [id number] [place] [address] Mar, 2013 [facility] [address] [facility] [id number] [place] [address] Mar, 2013 [facility] [address] [id number] [place] [address] Mar, 2013 [facility] [address] [id number] [place] [address] Mar, 2013 [facility] [address] [id number] [place] [address] Mar, 2013 [facility] [address] [facility] [id number] [place] [address] Mar, 2013 [facility] [address] [facility] [id number] [facility] [address] Mar, [facility] [address] [facility] [id number] [place] [address] Mar, [facility] [address] [facility] [id number] [place] [address] Feb, [facility] [address] [facility] [id number] [place] [address] Feb, [facility] [address] [id number] [place] [address] Feb, [facility] [address] [id number] [place] [address] Feb, [facility] [address] [id number] [place] [address] Feb, [facility] [address] [id number] [place] [address] Feb, [facility] [address] [id number] [place] [address] Feb, [facility] [address] [id number] [place] [address] Feb, [facility] [address] [id number] [place] [address] Feb, [facility] [address] [facility] [id number] [place] [address] Feb, [facility] [address] [facility] [id number] [place] [address] Feb, [facility] [address] [facility] [id number] [place] [address] Feb, [facility] [address] [id number] [place] [address] Feb, [facility] [address] [id number] [place] [address] Feb, [facility] [address] [facility] [id number] [facility] [address] January, [facility] [address] [facility] [id number] [place] [address] January, [facility] [address] [id number] [place] [address] January, [facility] [address] [id number] [place] [address] January, [facility] [address] [facility] [id number] [facility] [address] January, [facility] [address] [id number] [place] [address] January, [facility] [address] [id number] [place] [address] January, [facility] [address] [id number] [place] [address] January, [facility] [address] [id number] [place] [address] January, [facility] [address] [id number] [place] [address] January, [facility] [address] [id number] [place] [address] January, [facility] [address] [id number] [place] [address] January, [facility] [address] [id number] [place] [address] January, [facility] [address] [id number] [place] [address] January, [facility] [address] [id number] [place] [address] Dec, [facility] [address] [id number] [place] [address] Dec, [facility] [address] [facility] [id number] [facility] [address] Dec, [facility] [address] [facility] [id number] [place] [address] Dec, [facility] [address] [id number] [place] [address] Dec, [facility] [address] [id number] [place] [address] Dec, [facility] [address] [id number] [place] [address] Dec, [facility] [address] [id number] [place] [address] Dec, [facility] [address] [id number] [place] [address] Dec, [facility] [address] [id number] [place] [address] Dec, [facility] [address] [id number] [place] [address] Nov, [facility] [address] [id number] [place] [address] Nov, [facility] [address] [id number] [place] [address] Nov, [facility] [address] [id number] [place] [address] Nov, [facility] [address] [id number] [place] [address] Nov, [facility] [address] [facility] [id number] [place] [address] Nov, [facility] [address] [id number] [place] [address] Nov, [facility] [address] [id number] [place] [address] Nov, [facility] [address] [id number] [place] [address] Nov, [facility] [address] [id number] [place] [address] Nov, [facility] [address] [id number] [place] [address] Oct, [facility] [address] [id number] [place] [address] Oct, [facility] [address] [id number] [place] [address] Oct, [facility] [address] [id number] [place] [address] Oct, [facility] [address] [id number] [place] [address] Oct, [facility] [address] [id number] [place] [address] Oct, [facility] [address] [id number] [place] [address] Oct, [facility] [address] [id number] [place] [address] Oct, [facility] [address] [id number] [place] [address] Oct, [facility] [address] [id number] [place] [address] Oct, [facility] [address] [id number] [place] [address] Oct, [facility] [address] [id number] [place] [address] Oct, [facility] [address] [id number] [place] [address] Oct, [facility] [address] [id number] [place] [address] Oct, [facility] [address] [id number] [place] [address] Sep, [facility] [address] [id number] [place] [address] 20 Sep, 2013 [facility] [address] [id number] [place] [address] 15 Sep, 2013 [facility] [address] [id number] [place] [address] 15 Sep, 2013 [facility] [address] [id number] [place] [address] 14 Sep, 2013 [facility] [address] [id number] [place] [address] 14 Sep, 2013 [facility] [address] [id number] [place] [address] 14 Sep, 2013 [facility] [address] [id number] [place] [address] 14 Sep, 2013 [facility] [address] [id number] [place] [address] 08 Sep, 2013 [facility] [address] [id number] [place] [address] 08 Sep, 2013 [facility] [address] [id number] [place] [address] 10 Aug, 2013 [facility] [address] [id number] [place] [address] Aug, [facility] [address] [id number] [place] [address] Jul, [facility] [address] [id number] [place] [address] Jul, [facility] [address] [id number] [place] [address] 13 Jul, 2013 [facility] [address] [id number] [place] [address] 13 Jul, 2013 [facility] [address] [id number] [place] [address] 13 Jul, 2013 [facility] [address] [id number] [place] [address] Jul, [facility] [address] [id number] [place] [address] Jul, [facility] [address] [id number] [place] [address] Jul, [facility] [address] [id number] [place] [address] 08 Jul, 2013 [facility] [address] [id number] [place] [address] 08 Jul, 2013 [facility] [address] [id number] [place] [address] Jul, 2012 [facility] [address] [id number] [place] [address] Jul, 2012 [facility] [address] [id number] [place] [address] Jul, 2012 [facility] [address] [id number] [place] [address] Jul, [facility] [address] [id number] [place] [address] Jul, [facility] [address] [id number] [place] [address] Jul, [facility] [address] [id number] [place] [address] Jul, [facility] [address] [id number] [place] [address] Jul, [facility] [address] [id number] [place] [address] Jul, [facility] [address] [id number] [place] [address] Jun, 2012 [facility] [address] [id number] [place] [address] Jun, 2012 [facility] [address] [id number] [place] [address] Jun, [facility] [address] [id number] [place] [address] 16 Jun, 2012 [facility] [address] [id number] [place] [address] 16 Jun, 2012 [facility] [address] [id number] [place] [address] 16 Jun, 2012 [facility] [address] [id number] [place] [address] 10 Jun, 2012 [facility] [address] [id number] [place] [address] 10 Jun, 2012 [facility] [address] [id number] [place] [address] Jun, [facility] [address] [id number] [place] [address] Jun, [facility] [address] [id number] [place] [address] Jun, [facility] [address] [id number] [place] [address] 26 May, 2012 [facility] [address] [id number] [place] [address] 25 May, 2012 [facility] [address] [id number] [place] [address] 19 May, 2012 [facility] [address] [id number] [place] [address] 17 May, 2012 [facility] [address] [id number] [place] [address] 11 May, 2012 [facility] [address] [id number] [place] [address] 10 May, 2012 [facility] [address] [id number] [place] [address] 09 May, 2012 [facility] [address] [id number] [place] [address] 05 May, 2012 [facility] [address] [id number] [place] [address] 30 Apr, 2013 [facility] [address] [id number] [place] [address] Apr, [facility] [address] [id number] [place] [address] Apr, [facility] [address] [id number] [place] [address] Apr, [facility] [address] [id number] [place] [address] Apr, [facility] [address] [facility] [id number] [place] [address] Mar, [facility] [address] [id number] [place] [address] Mar, [facility] [address] [id number] [place] [address] Mar, [facility] [address] [id number] [place] [address] Mar, [facility] [address] [id number] [place] [address] Mar, [facility] [address] [id number] [place] [address] Mar, [facility] [address] [id number] [place] [address] Mar, [facility] [address] [id number] [place] [address] Mar, [facility] [address] [id number] [place] [address] Feb, [facility] [address] [id number] [place] [address] Feb, [facility] [address] [id number] [place] [address] January, [facility] [address] [id number] [place] [address] January, [facility] [address] [id number] [place] [address] 10 Dec, 2012 [facility] [address] [id number] [place] [address] 09 Dec, 2012 [facility] [address] [id number] [place] [address] 23 Nov, 2012 [facility] [address] [id number] [place] [address] Nov, [facility] [address] [id number] [place] [address] Nov, [facility] [address] [id number] [place] [address] 14 Nov, 2012 [facility] [address] [id number] [place] [address] 27 Oct, 2012 [facility] [address] [id number] [place] [address] Oct, [facility] [address] [id number] [place] [address] Oct, [facility] [address] [id number] [place] [address] 26 Oct, 2012 [facility] [address] [id number] [place] [address] 16 Oct, 2012 [facility] [address] [id number] [place] [address] 14 Oct, 2012 [facility] [address] [id number] [place] [address] 08 Oct, 2012 [facility] [address] [id number] [place] [address] 07 Oct, 2012 [facility] [address] [id number] [place] [address] 03 Oct, 2012 [facility] [address] [id number] [place] [address] 30 Sep, 2012 [facility] [address] [id number] [place] [address] Sep, [facility] [address] [id number] [place] [address] Sep, [facility] [address] [id number] [place] [address] Sep, [facility] [address] [id number] [place] [address] 17 Sep, 2012 [facility] [address] [id number] [place] [address] Sep, [facility] [address] [id number] [place] [address] Sep, [facility] [address] [id number] [place] [address] Sep, [facility] [address] [id number] [place] [address] Aug, [facility] [address] [id number] [place] [address] 31 Aug, 2012 [facility] [address] [id number] [place] [address] Aug, [facility] [address] [id number] [place] [address] Aug, [facility] [address] [id number] [place] [address] Aug, [facility] [address] [id number] [place] [address] Aug, [facility] [address] [id number] [place] [address] 18 Aug, 2012 [facility] [address] [id number] [place] [address] Aug, [facility] [id number] [place] [address] Jul, [facility] [address] [id number] [place] [address] Jul, [facility] [address] [id number] [place] [address] Jul, [facility] [address] [id number] [place] [address] Jul, [facility] [address] [id number] [place] [address] Jul, [facility] [address] [id number] [place] [address] Jul, [facility] [address] [id number] [place] [address] Jun, [facility] [address] [id number] [place] [address] Jun, [facility] [address] [id number] [place] [address] Jun, [facility] [address] [id number] [place] [address] Jun, [facility] [address] [id number] [place] [address] Jun, [facility] [address] [id number] [place] [address] Jun, [facility] [address] [id number] [place] [address] 19 Jun, 2012 [facility] [address] [id number] [place] [address] Jun, [facility] [address] [id number] [place] [address] 10 Jun, 2012 [facility] [address] [id number] [place] [address] 26 May, 2012 [facility] [address] [id number] [place] [address] 24 May, 2012 [facility] [address] [id number] [place] [address] 18 May, 2012 [facility] [address] [id number] [place] [address] 30 Apr, 2012 [facility] [address] [id number] [place] [address] Apr, [facility] [id number] [place] [address] Apr, [facility] [address] [id number] [place] [address] Apr, [facility] [address] [id number] [place] [address] Apr, [facility] [address] [id number] [place] [address] Apr, [facility] [address] [id number] [place] [address] Mar, [facility] [address] [id number] [place] [address] Mar, [facility] [address] [id number] [place] [address] Mar, [facility] [address] [id number] [place] [address] Mar, [facility] [address] [id number] [place] [address] Feb, [facility] [address] [id number] [place] [address] Feb, [facility] [address] [id number] [place] [address] Feb, [facility] [address] [id number] [place] [address] Feb, [facility] [address] [id number] [place] [address] Feb, [facility] [address] [id number] [place] [address] January, [facility] [address] [id number] [place] [address] January, [facility] [address] [id number] [place] [address] January, [facility] [address] [id number] [place] [address] January, [facility] [address] [id number] [place] [address] January, [facility] [address] [id number] [place] [address] January, [facility] [address] [id number] [place] [address] Dec, [facility] [address] [id number] [place] [address] Dec, [facility] [address] [id number] [place] [address] Dec, [facility] [address] [id number] [place] [address] Dec, [facility] [address] [id number] [place] [address] Dec, [facility] [address] [id number] [place] [address] Nov, [facility] [address] [id number] [place] [address] Nov, [facility] [address] [id number] [place] [address] Nov, [facility] [address] [id number] [place] [address] Nov, [facility] [address] [id number] [place] [address] Oct, [facility] [address] [id number] [place] [address] Oct, [facility] [address] [id number] [place] [address] 24 Oct, 2011 [facility] [address] [id number] [place] [address] 13 Oct, 2011 [facility] [address] [id number] [place] [address] Oct, [facility] [address] [id number] [place] [address] Sep, [facility] [address] [id number] [place] [address] Sep, [facility] [address] [id number] [place] [address] Sep, [facility] [address] [id number] [place] [address] Sep, [facility] [address] [id number] [place] [address] Sep, [facility] [address] [id number] [place] [address] Sep, [facility] [address] [id number] [place] [address] Aug, [facility] [address] [id number] [place] [address] Aug, [facility] [address] [id number] [place] [address] Aug, [facility] [id number] [place] [address] Jul, [facility] [address] [id number] [place] [address] Jul, [facility] [address] [id number] [place] [address] Jul, [facility] [address] [id number] [place] [address] Jul, [facility] [address] [id number] [place] [address] Jun, [facility] [address] [id number] [place] [address] Jun, [facility] [address] [id number] [place] [address] Jun, [facility] [address] [id number] [place] [address] 10 Jun, 2011 [facility] [address] [id number] [place] [address] 10 Jun, 2011 [facility] [address] [id number] [place] [address] 10 Jun, 2011 [facility] [address] [id number] [place] [address] 11 Mar, 2011 [facility] [address] [id number] [place] [address] 18 Dec, 2010 [facility] [address] [id number] [place] [address] 11 Dec, 2010 [facility] [address] [id number] [place] [address] 18 Nov, 2010 [facility] [address] [id number] [place] [address] 16 Nov, 2010 [facility] [address] [id number] [place] [address] 10 Sep, 2010 [facility] [address] [id number] [place] [address] 31 Aug, 2010 [facility] [address] [id number] [place] [address] 29 Aug, 2010 [facility] [address] [id number] [place] [address] 29 Aug, 2010 [facility] [address] [id number] [place] [address] 29 Aug, 2010 [facility] [address] [id number] [place] [address] 27 Aug, 2010 [facility] [address] [id number] [place] [address] 14 Aug, 2010 [facility] [address] [id number] [place] [address] 08 Aug, 2010 [facility] [address] [id number] [place] [address] 08 Aug, 2010 [facility] [address] [id number] [place] [address] 07 Aug, 2010 [facility] [address] [id number] [place] [address] Aug, [facility] [address] [id number] [place] [address] Aug, [facility] [address] [id number] [place] [address] Aug, [facility] [address] [id number] [place] [address] Jul, [facility] [address] [id number] [place] [address] Jul, [facility] [address] [id number] [place] [address] Jul, [facility] [address] [id number] [place] [address] Jul, [facility] [address] [id number] [place] [address] Jul, [facility] [address] [id number] [place] [address] Jul, [facility] [address] [id number] [place] [address] Jun, [facility] [address] [id number] [place] [address] Jun, [facility] [address] [id number] [place] [address] Jun, [facility] [address] [id number] [place] [address] Jun, [facility] [address] [id number] [place] [address] 16 Apr, 2010 [facility] [address] [id number] [place] [address] Mar, [facility] [address] [id number] [place] [address] Feb, [facility] [address] [id number] [place] [address] January, [facility] [address] [id number] [place] [address] Dec, [facility] [address] [id number] [place] [address] Nov, [facility] [address] [id number] [place] [address] Aug, [facility] [address] [id number] [place] [address] Aug, [facility] [address] [id number] [place] [address] Aug, [facility] [address] [id number] [place] [address] Jul, [facility] [address] [id number] [place] [address] Jul, [facility] [address] [id number] [place] [address] Jul, [facility] [address] [id number] [place] [address] Jun, [facility] [address] [id number] [place] [address] Jun, [facility] [address] [id number] [place] [address] Jun, [facility] [address] [id number] [place] [address] Jun, [facility] [address] [id number] [place] [address] Jun, [facility] [address] [id number] [place] [address] Jun, [facility] [address] [id number] [place] [address] Apr, [facility] [address] [id number] [place] [address] Apr, [facility] [address] [facility] [id number] [place] [address] Feb, [facility] [address] [facility] [id number] [place] [address] January, [facility] [address] [facility] [id number] [place] [address] Dec, IMMUNIZATIONS No Known Immunizations SOCIAL HISTORY [...] obesity Medical History skin cancer-basal cell R tenriism (removed ) Medical History Arthritis Medical History [...] EGD ([facility]) 2009 Surgical History colonoscopy 2009 ([facility]), 2013 ([facility] ) Surgical History heart cath: CAD w/ [...] urinate 09/16/15 Hospitalization History [facility] ea [facility]ly 1999's Hospitalization History hyperkalemia 10/2017 Hospitalization History fluid in lung
--- OUTSIDE RECORDS SUMMARY | 2020-03-01 16:49 | XMS REPORT ---
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 Name Role Phone ROSELINE LUIS Unavailable PROBLEMS Type Condition ICD9-CM Code VOL63-DC Code Onset Dates Condition S tatus SNOMED Code Problem DM neuro manif type II E11.49 Active 50247773 Problem Chronic pain G89.29 Active 5416327 1 Problem Diabetes E11.9 Active 74605363 Problem Reactive airway disease J45.909 Active 312511869086 Problem Leukocytosis D72.829 Active 7220543 06 Problem Insomnia, unspecified type G47.00 Act sharon 736162148 Problem Bipolar I disorder, most recent episode (or curr ent) mixed, moderate F31.62 Active 22550821 Problem Primary osteoarthritis of right knee M17.11 Active 589525561651908 Problem Cough R05 Active 08703147 Problem Pure hypercholesterolemia E78.00 Acti ve 437954467 Problem Dysuria R30.0 Active 12408363 Problem Benign prostatic hyperplasia with lower urinary tract symptoms, unspecified morphology N40.1 Active 42058 6007 Problem Eustachian tube dysfunction, unspecified laterality H69.80 Active 37603108 Problem Polyneuropathy associated with underlying disease G63 Active 651638302 Problem Diabetic polyneuropathy associated with type 2 d iabetes mellitus E11.42 Active 47861404 Problem Anemia of chronic illness D63.8 Acti ve 843869791 Problem Chronic lymphocytic leukemia C91.10 A ctive 42515811 Problem Bilateral primary osteoarthritis of knee M17.0 Active 792561416 Problem 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 Active 973265715 Problem Eye exam abnormal R93.8 Active 16 1246619 Problem Retinal edema H35.81 Active 849674 6 Problem Lymphocytosis D72.820 Active 102968 09 Problem Bipolar disorder, in partial remission, most rec ent episode depressed F31.75 Active 52997677 Problem Hypokalemia E87.6 Active 16742483 Problem Falling R29.6 Active 209169747 Problem Pressure ulcer of other site, stage 3 L89.893 Active 282620152 Problem Other iron deficiency anemia D50.8 A ctive 50176010 Problem Mild cognitive impairment G31.84 Acti ve 925087792 Problem Skin cancer C44.90 Active 15191268 7 Problem 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 Z79.4 Active 981793853 Problem Morbid obesity E66.01 Active 46109 6002 Problem Mood disorder F39 Active 016249 05 Problem Anxiety F41.9 Active 69557651 Problem Essential hypertension I10 Active 87564874 Problem Bipolar disorder F31.9 Active 137 25643 Problem Chronic diastolic (congestive) heart failure I50.3 2 Active 816665489 Problem Psychophysiological insomnia F51.04 A ctive 364756075 Problem Type 2 diabetes mellitus with diabetic neuropathy, uns pecified E11.40 Active 65529009 ALLERGIES No Information ENCOUNTERS Encounter Location Date Diagnosis [place] [address] [address] 06 Dec, 2019 [place] [address] [address] Nov, [place] [address] [address] Nov, [place] [address] [address] Nov, [place] [address] [address] Oct, [place] [address] [address] Oct, [facility] [address] [address] Oct, Bipolar disorder, in partial remission, most recent episode depressed F31.75 and Mild cognitive impairment G31.84 [facility] [address] [address] 04 Oct, 2019 Mood disorder F39 [facility] [address] [address] Sep, [facility] [address] [facility] [place] [address] Sep, Mood disorder F39 [facility] [address] [id number] [place] [address] Sep, Bipolar disorder, in partial remission, most recent episode depressed F31.75 and Mild cognitive impairment G31.84 [facility] [address] [place] [id number] [place] [address] Sep, Mood disorder F39 [facility] [address] [id number] [place] [address] Sep, [facility] [address] [id number] [place] [address] Sep, Mood disorder F39 [facility] [address] [id number] [place] [address] Sep, [facility] [address] [id number] [place] [address] Aug, Mood disorder F39 [facility] [address] [id number] [place] [address] Aug, [facility] [address] [id number] [place] [address] Aug, [facility] [address] [id number] [place] [address] Aug, [facility] [address] [id number] [place] [address] Aug, [facility] [address] [id number] [place] [address] Aug, [facility] [address] [place] [id number] [place] [address] Aug, [facility] [address] [address] [id number] [place] [address] Aug, [facility] [address] [id number] [place] [address] Aug, Essential hypertension I10 [facility] [address] [id number] [place] [address] Aug, Bipolar disorder, in partial remission, most recent episode depressed F31.75 and Mild cognitive impairment G31.84 [facility] [address] [address] [id number] [place] [address] Aug, Mood disorder F39 [facility] [address] [place] [id number] [place] [address] Aug, [facility] [address] [place] [address] [id number] [place] [address] Aug, Bipolar disorder, in partial remission, most recent episode depressed F31.75 and Mild cognitive impairment G31.84 [facility] [address] [address] [id number] [place] [address] Jul, Bipolar disorder, in partial remission, most recent episode depressed F31.75 and Mild cognitive impairment G31.84 [facility] [address] [place] [address] [id number] [place] [address] Jul, Psychophysiological insomnia F51.04 [facility] [address] [id number] [place] [address] Jul, [facility] [address] [place] [id number] [place] [address] Jul, [facility] [address] [place] [id number] [place] [address] Jul, [facility] [address] [place] [address] [id number] [place] [address] Jul, [facility] [address] [place] [address] [id number] [place] [address] Jul, [facility] [address] [place] [id number] [place] [address] Jul, [facility] [address] [place] [id number] [place] [address] Jul, Bipolar disorder, in partial remission, most recent episode depressed F31.75 and Mild cognitive impairment G31.84 [place] [address] [address] Jul, Chronic pain G89.29 ; Diabetes E11.9 ; E ssential hypertension I10 ; Ill feeling R68.89 ; Local infection of the skin and subcutaneous tissue, unspecified L08.9 and Other injury of unspecified body region, initial encounter T14.8XXA [place] [address] [address] Jun, Bipolar disorder, in partial remission, most recent episode depressed F31.75 and Mild cognitive impairment G31.84 [place] [address] [address] Jun, [address] [address] Jun, Bipolar disorder, in partial remission, most recent episode depressed F31.75 and Mild cognitive impairment G31.84 [place] [address] [address] Jun, Psychophysiological insomnia F51.[address] [address] Jun, Psychophysiological insomnia F51.04 ; Ch ronic pain G89.29 ; Bipolar I disorder, most recent episode (or current) mixed, moderate F31.62 ; 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 ; Polyneuropathy associated with underlying disease G63 ; Type 2 diabetes mellitus with diabetic neuropathy, unspecified E11.40 ; 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 Z79.4 and Hyperglycemia R73.9 [place] [address] [address] Jun, Bipolar disorder, in partial remission, most recent episode depressed F31.75 and Mild cognitive impairment G31.84 [place] [address] [address] Jun, [address] [address] Jun, Bipolar disorder F31.9 [facility] [address] [place] [id number] [place] [address] 17 May, 2019 Bipolar disorder, in partial remission, most recent episode depressed F31.75 and Mild cognitive impairment G31.84 [facility] [address] [place] [id number] [place] [address] 05 May, 2019 [facility] [address] [place] [id number] [place] [address] Apr, Chronic pain G89.29 and Bipolar disorder F31.9 [facility] [address] [address] Mar, Bipolar disorder F31.9 and Chronic pain G89.29 [facility] [address] [address] Feb, Bipolar disorder F31.9 [facility] [address] [address] Feb, Cellulitis of right upper extremity L03. 113 and Skin abrasion T14.8XXA [facility] [address] [place] [id number] [place] [address] Feb, Bipolar disorder, in partial remission, most recent episode depressed F31.75 and Mild cognitive impairment G31.84 [facility] [address] [place] [address] [id number] [place] [address] Feb, Chronic pain G89.29 [facility] [address] [address] Feb, Bipolar disorder, in partial remission, most recent episode depressed F31.75 and Mild cognitive impairment G31.84 [facility] [address] [address] January, Bipolar disorder, in partial remission, most recent episode depressed F31.75 and Mild cognitive impairment G31.84 [facility] [address] [address] January, Chronic pain G89.29 and Bipolar disorder F31.9 [facility] [address] [address] January, Bipolar disorder, in partial remission, most recent episode depressed F31.75 and Mild cognitive impairment G31.84 [place] [address] [address] Dec, [place] [address] [address] Dec, Chronic pain G89.29 and Bipolar disorder F31.9 [place] [address] [address] Dec, Edema of both lower extremities R60.0 [place] [address] [address] Dec, Bipolar disorder F31.9 [place] [address] [address] Dec, Bipolar disorder, in partial remission, most recent episode depressed F31.75 and Mild cognitive impairment G31.84 [place] [address] [address] Nov, [place] [address] [address] Nov, Chronic pain G89.29 [place] [address] [address] Nov, Bipolar disorder, in partial remission, most recent episode depressed F31.75 and Mild cognitive impairment G31.84 [place] [address] [address] Nov, Bipolar disorder F31.9 [place] [address] [address] 04 Nov, 2018 Encounter for Medicare annual [...] unspecified morphology N40.1 and Essential hypertension I10 [address] [address] Oct, Chronic pain G89.[address] [address] Oct, Diabetes E11.[address] [address] Oct, Bipolar I disorder, most recent episode (or current) mixed, moderate F31.62 and Mild cognitive impairment G31.[address] [address] Oct, Bipolar I disorder, most recent episode (or current) mixed, moderate F31.62 and Mild cognitive impairment G31.[address] [address] Sep, Bipolar I disorder, most recent episode (or current) mixed, moderate F31.62 and Mild cognitive impairment G31.[address] [address] Sep, [address] [address] Sep, Diabetes E11.9 ; Hypoxia R09.02 ; Hyperg lycemia R73.9 ; Therapeutic drug monitoring Z51.81 ; BMI 50.0-59.9, adult Z68.43 and Skin cancer C44.[address] [address] Sep, Chronic pain G89.[address] [address] Sep, Bipolar I disorder, most recent episode (or current) mixed, moderate F31.[id number] [place] [address] Sep, [facility] [address] [address] Sep, [facility] [address] [address] Aug, Chronic pain G89.29 [facility] [address] [address] Aug, Bipolar I disorder, most recent episode (or current) mixed, moderate F31.62 [facility] [address] [address] Aug, Bipolar I disorder, most recent episode (or current) mixed, moderate F31.62 and Mild cognitive impairment G31.84 [facility] [address] [address] Jul, [facility] [address] [address] Jul, Chronic pain G89.29 [facility] [address] [address] Jul, Bipolar I disorder, most recent episode (or current) mixed, moderate F31.62 and Mild cognitive impairment G31.84 [place] [address] [address] Jul, Bipolar I disorder, most recent episode (or current) mixed, moderate F31.62 and MCI (mild cognitive impairment) G31.84 [facility] [address] [address] Jul, [facility] [address] [address] Jul, [facility] [address] [address] Jul, Bipolar I disorder, most recent episode (or current) mixed, moderate F31.62 [place] [address] [address] Jul, Chronic pain G89.29 [facility] [address] [place] [id number] [place] [address] Jun, Bipolar I disorder, most recent episode (or current) mixed, moderate F31.62 [facility] [address] [id number] [place] [address] Jun, Pre-procedure lab exam Z01.812 [facility] [address] [place] [id number] [place] [address] Jun, [facility] [address] [facility] [place] [id number] Jun, [place] [address] [place] [id number] [place] [address] Jun, [place] [address] [place] [id number] [place] [address] Jun, Forgetfulness R68.89 ; Pre-syncope R55 ; Localized edema R60.0 ; Other iron deficiency anemia D50.8 and BMI 50.0-59.9, adult Z68.43 [facility] [address] [address] Jun, Chronic pain G89.29 [facility] [address] [place] [id number] [place] [address] Jun, Chronic pain G89.29 [facility] [address] [place] [id number] [place] [address] Jun, Bipolar I disorder, most recent episode (or current) mixed, moderate F31.62 [facility] [address] [id number] [place] [address] May, Chronic pain G89.29 [facility] [address] [place] [address] [place] [address] Apr, [facility] [address] [address] Apr, Chronic pain G89.29 [place] [address] [address] Apr, Primary osteoarthritis of right knee M17 .11 [place] [address] [address] Mar, [place] [address] [address] Mar, BMI 50.0-59.9, adult Z68.43 and Bipolar disorder, in partial remission, most recent episode depressed F31.75 [place] [address] [address] Mar, Diabetes E11.9 ; Pure hypercholesterolem ia E78.00 ; Essential hypertension I10 ; Nausea with vomiting, unspecified R11.2 and Headache, unspecified headache type R51 [address] [address] Mar, Bipolar I disorder, most recent episode (or current) mixed, moderate F31.62 [place] [address] [address] Mar, Bipolar I disorder, most recent episode (or current) mixed, moderate F31.62 [place] [address] [address] Mar, Chronic pain G89.[address] [address] Mar, Bipolar I disorder, most recent episode (or current) mixed, moderate F31.62 [place] [address] [address] Feb, Bipolar I disorder, most recent episode (or current) mixed, moderate F31.62 [place] [address] [address] 14 Feb, 2018 Chronic pain G89.[address] [address] 06 Feb, 2018 Decubitus ulcer of right foot, stage 3 L 89.893 and BMI 50.0-59.9, adult Z68.43 [place] [address] [address] Feb, Bipolar I disorder, most recent episode (or current) mixed, moderate F31.62 [place] [address] [address] Feb, [place] [address] [address] January, [place] [address] [address] January, Chronic pain G89.29 [place] [address] [address] January, Bipolar I disorder, most recent episode (or current) mixed, moderate F31.62 [place] [address] [address] January, Bipolar I disorder, most recent episode (or current) mixed, moderate F31.62 [place] [address] [address] Dec, Bipolar I disorder, most recent episode (or current) mixed, moderate F31.62 and BMI 50.0-59.9, adult Z68.43 [place] [address] [address] Dec, Bipolar I disorder, most recent episode (or current) mixed, moderate F31.62 [place] [address] [address] Dec, Chronic pain G89.29 [place] [address] [address] 18 Dec, 2017 DM neuro manif type II E11.49 ; Right fl ank pain R10.9 ; assisted 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 Z79.891 ; Encounter for medication monitoring Z51.81 and BMI 50.0-59.9, adult Z68.43 [place] [address] [address] Dec, Bipolar I disorder, most recent episode (or current) mixed, moderate F31.62 [place] [address] [place] [address] Nov, Bipolar I disorder, most recent episode (or current) mixed, moderate F31.62 [place] [address] [address] Nov, Chronic pain G89.29 [place] [address] [place] [address] Nov, Bipolar I disorder, most recent episode (or current) mixed, moderate F31.62 [place] [address] [address] Nov, Hypokalemia E87.6 [place] [address] [address] Nov, Bipolar I disorder, most recent episode (or current) mixed, moderate F31.62 [place] [address] [address] Oct, Chronic pain G89.29 [place] [address] [address] Oct, BMI 50.0-59.9, adult Z68.43 and Bipolar I disorder, most recent episode (or current) mixed, moderate F31.62 [place] [address] [address] Oct, Bipolar I disorder, most recent episode (or current) mixed, moderate F31.62 [place] [address] [address] Oct, [place] [address] [place] [address] Oct, Hypokalemia E87.6 [place] [address] [address] Oct, DM neuro manif type II E11.49 [place] [address] [address] Oct, Bipolar I disorder, most recent episode (or current) mixed, moderate F31.62 [place] [address] [address] Oct, Bipolar I disorder, most recent episode (or current) mixed, moderate F31.62 [place] [address] [address] 14 Oct, 2017 Hyperkalemia E87.5 ; Falling R29.6 ; BMI 50.0-59.9, adult Z68.43 and Acute left ankle pain M25.[address] [address] 08 Oct, 2017 DM neuro manif type II E11.49 [place] [address] [address] Oct, [place] [address] [address] Sep, Chronic pain G89.[address] [address] Sep, [address] [address] Sep, Bilateral primary osteoarthritis of knee M17.[address] [address] Sep, Generalized edema R60.[address] [address] Sep, Bipolar I disorder, most recent episode (or current) mixed, moderate F31.62 [place] [address] [address] 15 Sep, 2017 Hypoxia R09.02 ; Other hypervolemia E87. 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 ; Anemia of chronic illness D63.8 and BMI 50.0-59.9, adult Z68.43 [place] [address] [address] Sep, [place] [address] [address] Sep, Bipolar I disorder, most recent episode (or current) mixed, moderate F31.62 [place] [address] [address] Aug, Chronic pain G89.29 [place] [address] [address] Aug, Generalized edema R60.1 [place] [address] [address] Aug, [place] [address] [address] Aug, [place] [address] [address] Aug, Bipolar I disorder, most recent episode (or current) mixed, moderate F31.62 [place] [address] [address] Aug, Bipolar I disorder, most recent episode (or current) mixed, moderate F31.62 [place] [address] [address] 04 Aug, 2017 Chronic pain G89.29 [place] [address] [address] Jul, Bipolar I disorder, most recent episode (or current) mixed, moderate F31.62 [place] [address] [address] Jul, Bipolar I disorder, most recent episode (or current) mixed, moderate F31.62 and BMI 60.0-69.9, adult Z68.44 [place] [address] [address] 16 Jul, 2017 Bipolar I disorder, most recent episode (or current) mixed, moderate F31.62 [facility] [address] [address] Jul, Chronic pain G89.29 [facility] [address] [address] Jul, Bipolar I disorder, most recent episode (or current) mixed, moderate F31.62 [facility] [address] [address] Jun, Polyneuropathy associated with underlyin g disease G63 and Diabetes E11.9 [facility] [address] [address] Jun, Bipolar I disorder, most recent episode (or current) mixed, moderate F31.62 [place] [address] [address] Jun, Chronic pain G89.29 [facility] [address] [address] 27 May, 2017 Bipolar I disorder, most recent episode (or current) mixed, moderate F31.62 [facility] [address] [address] 21 May, 2017 Bipolar I disorder, most recent episode (or current) mixed, moderate F31.62 [facility] [address] [address] 20 May, 2017 Diabetic polyneuropathy associated with type 2 diabetes mellitus E11.42 [facility] [address] [address] 18 May, 2017 Bipolar I disorder, most recent episode (or current) mixed, moderate F31.62 [facility] [address] [address] 13 May, 2017 Bipolar I disorder, most recent episode (or current) mixed, moderate F31.62 [facility] [address] [address] May, Chronic pain G89.29 [facility] [address] [address] Apr, Bipolar I disorder, most recent episode (or current) mixed, moderate F31.62 [place] [address] [address] Apr, [place] [address] [address] Apr, Chronic pain G89.29 and DM neuro manif t ype II E11.49 [place] [address] [address] Apr, [place] [address] [address] Apr, Bipolar I disorder, most recent episode (or current) mixed, moderate F31.62 [place] [address] [address] Apr, Chronic pain G89.29 [place] [address] [address] Apr, Iliotibial band syndrome, left M76.32 [place] [address] [address] Apr, Bipolar I disorder, most recent episode (or current) mixed, moderate F31.62 [place] [address] [address] Mar, Bipolar I disorder, most recent episode (or current) mixed, moderate F31.62 [place] [address] [address] Mar, Bipolar I disorder, most recent episode (or current) mixed, moderate F31.62 [place] [address] [address] Mar, [place] [address] [address] Mar, Bipolar I disorder, most recent episode (or current) mixed, moderate F31.62 [facility] [address] [address] Mar, Chronic pain G89.29 [facility] [address] [address] Mar, Bipolar I disorder, most recent episode (or current) mixed, moderate F31.62 [facility] [address] [address] Mar, Bipolar I disorder, most recent episode (or current) mixed, moderate F31.62 [place] [address] [address] Mar, Acute pain of left knee M25.562 ; Left h ip pain M25.552 ; Generalized edema R60.1 and Tongue swelling R22.0 [place] [address] [address] Mar, [facility] [address] [address] Feb, Chronic pain G89.29 [place] [address] [address] Feb, Diabetes E11.9 [place] [address] [address] January, Chronic pain G89.29 [facility] [address] [address] January, [facility] [address] [address] January, Bipolar I disorder, most recent episode (or current) mixed, moderate F31.62 [facility] [address] [address] Dec, Bipolar I disorder, most recent episode (or current) mixed, moderate F31.62 [place] [address] [address] Dec, Chronic pain G89.29 [facility] [address] [address] Dec, Bipolar I disorder, most recent episode (or current) mixed, moderate F31.62 [facility] [address] [address] Dec, Diabetes E11.9 ; Essential hypertension I10 ; Chronic pain G89.29 and Morbid obesity E66.01 [facility] [address] [address] Dec, [facility] [address] [address] Dec, Bipolar I disorder, most recent episode (or current) mixed, moderate F31.62 [place] [address] [address] Dec, Bipolar I disorder, most recent episode (or current) mixed, moderate F31.62 [facility] [address] [address] Nov, Chronic pain G89.29 [facility] [address] [address] Nov, Bipolar I disorder, most recent episode (or current) mixed, moderate F31.62 [facility] [address] [address] Nov, [facility] [address] [address] Nov, Bipolar I disorder, most recent episode (or current) mixed, moderate F31.62 [facility] [address] [address] Nov, Bipolar I disorder, most recent episode (or current) mixed, moderate F31.62 [facility] [address] [address] Nov, [facility] [address] [address] Nov, [facility] [address] [address] Nov, [facility] [address] [address] Oct, Chronic pain G89.29 [facility] [address] [address] Oct, Bipolar I disorder, most recent episode (or current) mixed, moderate F31.62 [facility] [address] [address] Oct, [facility] [address] [address] Oct, Chronic pain G89.29 ; Diabetes E11.9 ; A nxiety F41.9 and 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 [facility] [address] [address] Oct, [facility] [address] [address] Oct, Diabetes E11.9 [facility] [address] [address] Oct, Bipolar I disorder, most recent episode (or current) mixed, moderate F31.62 [facility] [address] [address] Sep, Chronic pain G89.29 [facility] [address] [address] Sep, Chronic pain G89.29 [facility] [address] [address] Aug, Chronic pain G89.29 [facility] [address] [address] Jul, [facility] [address] [address] Jul, Diabetes E11.9 [place] [address] [address] Jul, Chronic pain G89.29 [place] [address] [place] [id number] Jul, Bipolar I disorder, most recent episode (or current) mixed, moderate F31.62 [place] [address] [address] Jun, Bipolar I disorder, most recent episode (or current) mixed, moderate F31.62 [place] [address] [address] Jun, [place] [address] [address] Jun, Bipolar I disorder, most recent episode (or current) mixed, moderate F31.62 [place] [address] [address] May, Insomnia, unspecified type G47.00 [place] [address] [address] May, Bipolar I disorder, most recent episode (or current) mixed, moderate F31.62 [place] [address] [address] 14 May, 2016 [place] [address] [address] May, Bipolar I disorder, most recent episode (or current) mixed, moderate F31.62 [place] [address] [address] 06 May, 2016 Diabetes E11.9 and Essential hypertensio n I10 [place] [address] [address] Apr, Chronic pain G89.29 [place] [address] [address] Apr, Bipolar I disorder, most recent episode (or current) mixed, moderate F31.62 [place] [address] [address] Apr, [place] [address] [address] Apr, [place] [address] [address] Mar, Chronic pain G89.29 ; Headache, unspecif ied headache type R51 ; Neuropathy G62.9 ; Pain of right hip joint M25.551 and Essential hypertension I10 [place] [address] [address] Mar, Chronic pain G89.29 [place] [address] [address] Mar, Bipolar I disorder, most recent episode (or current) mixed, moderate F31.62 [place] [address] [address] Feb, Bipolar I disorder, most recent episode (or current) mixed, moderate F31.62 and Insomnia, unspecified type G47.00 [place] [address] [address] Feb, Chronic pain G89.29 [place] [address] [address] Feb, Bipolar I disorder, most recent episode (or current) mixed, moderate F31.62 [place] [address] [address] January, Bipolar I disorder, most recent episode (or current) mixed, moderate F31.62 [place] [address] [address] January, Chronic pain G89.29 [place] [address] [address] January, Chronic pain G89.29 and Essential hypert ension I10 [facility] [address] [address] January, Bipolar I disorder, most recent episode (or current) mixed, moderate F31.62 [facility] [address] [address] Dec, [facility] [address] [address] Dec, [facility] [address] [address] Dec, [facility] [address] [address] Dec, [facility] [address] [address] Nov, Reactive airway disease J45.909 [place] [address] [address] Nov, [facility] [address] [address] Nov, [facility] [address] [address] Nov, [place] [address] [address] Nov, [place] [address] [address] Nov, Onychomycosis B35.1 ; Hammertoe M20.40 ; Washburn or callus L84 and DM neuro manif type II E11.49 [facility] [address] [address] Nov, Chronic pain G89.29 ; Leukocytosis D72.8 29 and Diabetes E11.9 [facility] [address] [address] Nov, [facility] [address] [address] Oct, Bronchitis J40 [place] [address] [address] Oct, [place] [address] [address] Oct, [place] [address] [address] Oct, Mastoiditis, unspecified laterality H70. 90 and Type 2 diabetes mellitus with complication E11.8 [place] [address] [address] Sep, [address] [address] Sep, Dysuria R30.0 ; Cough R05 ; Benign prost atic hyperplasia with lower urinary tract symptoms, unspecified morphology N40.1 ; Hypokalemia E87.6 and Eustachian tube dysfunction, unspecified laterality H69.80 [place] [address] [address] Sep, Moderate mixed bipolar I disorder F31.[address] [address] Sep, Hypokalemia E87.6 [place] [address] [address] Sep, [place] [address] [address] Sep, Upper respiratory tract infection, unspe cified type J06.9 [place] [address] [address] Aug, [address] [address] Aug, Dysuria R30.0 [place] [address] [address] Aug, [place] [address] [address] Jul, [facility] [address] [place] [id number] [place] [address] Jul, [facility] [address] [place] [id number] [place] [address] Jul, [facility] [address] [place] [id number] [place] [address] Jul, [facility] [address] [address] Jun, [facility] [address] [address] Jun, [facility] [address] [address] Jun, [facility] [address] [address] May, [facility] [address] [address] May, Bipolar I disorder, most recent episode (or current) mixed, moderate 296.62 [facility] [address] [address] May, [facility] [address] [address] May, Bipolar I disorder, most recent episode (or current) mixed, moderate 296.62 and Major depressive disorder, recurrent episode, severe, specified as with psychotic behavior 296.34 [facility] [address] [place] [id number] [place] [address] May, Bipolar I disorder, most recent episode (or current) mixed, moderate 296.62 [facility] [address] [address] May, [facility] [address] [address] Apr, [facility] [address] [address] Apr, [facility] [address] [address] Apr, Unspecified disorder of kidney and urete r 593.9 and Diabetes mellitus type 2, uncontrolled 250.02 [facility] [address] [address] Apr, [facility] [address] [address] Apr, [facility] [address] [address] Apr, [facility] [address] [address] Apr, [facility] [address] [address] Apr, Diabetes mellitus type II, uncontrolled 250.02 [facility] [address] [address] Apr, [facility] [address] [address] Mar, [facility] [address] [address] Mar, [place] [address] [address] Mar, [facility] [address] [address] Mar, Major depressive disorder, recurrent epi sode, severe, specified as with psychotic behavior 296.34 and Bipolar I disorder, most recent episode (or current) mixed, moderate 296.62 [place] [address] [address] Mar, Diabetes 250.00 ; Anuria 788.5 ; Nausea and vomiting 787.01 and Diarrhea 787.91 [place] [address] [address] Mar, Diabetes 250.00 [facility] [address] [address] Mar, [facility] [address] [address] Mar, Diabetes 250.00 [facility] [address] [address] Mar, [facility] [address] [address] Mar, [facility] [address] [address] Mar, [facility] [address] [address] Mar, [facility] [address] [address] Mar, Bipolar I disorder, most recent episode (or current) mixed, moderate 296.62 and Major depressive disorder, recurrent episode, severe, specified as with psychotic behavior 296.34 [place] [address] [address] Mar, Magnesium deficiency 275.2 ; Hypokalemia 276.8 ; Nausea & vomiting 787.01 and Diabetes mellitus type 2, uncontrolled 250.02 [place] [address] [address] Feb, [address] [address] Feb, Bipolar I disorder, most recent episode (or current) mixed, moderate 296.62 [facility] [address] [address] Feb, Nausea and vomiting 787.01 ; Left elbow pain 719.42 ; Anuria 788.5 and Diabetes 250.00 [facility] [address] [address] Feb, [facility] [address] [place] [address] Feb, Hypopotassemia 276.8 and Hypokalemia 276 .8 [facility] [address] [address] Feb, Hypopotassemia 276.8 and Hypokalemia 276 .8 [facility] [address] [address] Feb, Seborrheic keratoses 702.19 [facility] [address] [address] Feb, Hypopotassemia 276.8 and Low magnesium l evels 275.2 [facility] [address] [address] January, [facility] [address] [address] January, [facility] [address] [address] January, [place] [address] [address] January, Scalp lesion 709.9 [facility] [address] [address] January, [facility] [address] [address] Dec, Tear of medial cartilage or meniscus of knee, current 836.0 and 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 [facility] [address] [address] Dec, [facility] [address] [address] Dec, [facility] [address] [address] Dec, Squamous cell carcinoma, 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 42 [facility] [address] [address] 14 Dec, 2014 [facility] [address] [address] 13 Dec, 2014 [facility] [address] [id number] [place] [address] Nov, [facility] [address] [id number] [place] [address] Nov, [facility] [address] [id number] [place] [address] Nov, [facility] [address] [id number] [place] [address] Nov, [facility] [address] [id number] [place] [address] Nov, [facility] [address] [id number] [place] [address] Nov, [facility] [address] [id number] [place] [address] Nov, [facility] [address] [id number] [place] [address] Nov, 2014 [facility] [address] [id number] [place] [address] Nov, [facility] [address] [id number] [place] [address] Nov, [facility] [address] [id number] [place] [address] Nov, [facility] [address] [id number] [place] [address] Nov, [facility] [address] [id number] [place] [address] Oct, 2014 [facility] [address] [id number] [place] [address] Oct, 2014 [facility] [address] [id number] [place] [address] Oct, 2014 [facility] [address] [id number] [place] [address] Oct, 2014 [facility] [address] [id number] [place] [address] Oct, [facility] [address] [id number] [place] [address] Oct, [facility] [address] [id number] [place] [address] Oct, [facility] [address] [id number] [place] [address] Oct, [facility] [address] [id number] [place] [address] Oct, [facility] [address] [id number] [place] [address] Sep, [facility] [address] [id number] [place] [address] Sep, [facility] [address] [id number] [place] [address] Sep, [facility] [address] [id number] [place] [address] Sep, [facility] [address] [id number] [place] [address] Sep, [facility] [address] [id number] [place] [address] Sep, [facility] [address] [id number] [place] [address] Sep, [facility] [address] [id number] [place] [address] Sep, [facility] [address] [id number] [place] [address] Sep, [facility] [address] [id number] [place] [address] Sep, [facility] [address] [id number] [place] [address] Sep, [facility] [address] [id number] [place] [address] Sep, [facility] [address] [facility] [id number] [place] [address] Sep, [facility] [address] [id number] [place] [address] Sep, [facility] [address] [id number] [place] [address] Sep, [facility] [address] [id number] [place] [address] Sep, [facility] [address] [facility] [id number] [place] [address] Aug, [facility] [address] [id number] [place] [address] Aug, [facility] [address] [id number] [place] [address] Aug, [facility] [address] [id number] [place] [address] Aug, [facility] [address] [id number] [place] [address] Aug, [facility] [address] [id number] [place] [address] Aug, [facility] [address] [id number] [place] [address] Aug, [facility] [address] [id number] [place] [address] Aug, [facility] [address] [id number] [place] [address] Aug, [facility] [address] [id number] [place] [address] Aug, [facility] [address] [id number] [place] [address] Aug, [facility] [address] [place] [id number] 10 Aug, 2014 [facility] [address] [id number] [place] [address] 10 Aug, 2014 [facility] [address] [id number] [place] [address] Aug, [facility] [address] [id number] [place] [address] Aug, [facility] [address] [id number] [place] [address] Aug, [facility] [address] [id number] [place] [address] Aug, [facility] [address] [facility] [id number] [place] [address] Aug, [facility] [address] [id number] [place] [address] Aug, [facility] [address] [id number] [place] [address] 08 Aug, 2014 [facility] [address] [id number] [place] [address] Aug, [facility] [address] [id number] [place] [address] Aug, [facility] [address] [id number] [place] [address] Aug, [facility] [address] [id number] [place] [address] Aug, [facility] [id number] [place] [address] Aug, [facility] [id number] [place] [address] Aug, [facility] [id number] [place] [address] Aug, [facility] [id number] [place] [address] Aug, [facility] [id number] [place] [address] Aug, [facility] [id number] [place] [address] Aug, [facility] [id number] [place] [address] Jul, [facility] [id number] [place] [address] Jul, [facility] [id number] [place] [address] Jul, [facility] [id number] [place] [address] Jul, [facility] [id number] [place] [address] Jul, [facility] [id number] [place] [address] Jul, [facility] [id number] [place] [address] Jul, [facility] [id number] [place] [address] Jul, [facility] [id number] [place] [address] Jul, [facility] [id number] [place] [address] Jul, [facility] [id number] [place] [address] Jun, [facility] [id number] [place] [address] Jun, [facility] [id number] [place] [address] Jun, [facility] [id number] [place] [address] 16 Jun, 2014 [facility] [id number] [place] [address] 15 Jun, 2014 [facility] [id number] [place] [address] 15 Jun, 2014 [facility] [address] [id number] [place] [address] Jun, [facility] [id number] [place] [address] Jun, [facility] [id number] [place] [address] Jun, [facility] [id number] [place] [address] Jun, [facility] [id number] [place] [address] 29 May, 2013 [facility] [id number] [place] [address] 29 May, 2013 [facility] [id number] [place] [address] 26 May, 2013 [facility] [id number] [place] [address] 26 May, 2013 [facility] [id number] [place] [address] 17 May, 2013 [facility] [id number] [place] [address] 17 May, 2013 [facility] [id number] [place] [address] 15 May, 2013 [facility] [id number] [place] [address] 15 Sep, 2013 [facility] [id number] [place] [address] 15 Sep, 2013 [facility] [id number] [place] [address] 15 Sep, 2013 [facility] [id number] [place] [address] 10 Sep, 2013 [facility] [id number] [place] [address] 10 May, 2013 [facility] [facility] [id number] [place] [address] May, 2013 [facility] [address] [id number] [facility] [address] May, 2013 [facility] [address] [facility] [id number] [facility] [address] May, [facility] [address] [id number] [facility] [address] May, [facility] [address] [id number] [facility] [address] Apr, [facility] [address] [address] [facility] [id number] [facility] [address] Apr, [facility] [address] [id number] [facility] [address] Apr, [facility] [id number] [facility] [place] [address] Apr, [facility] [address] [id number] [facility] [place] [address] Apr, [facility] [address] [facility] [id number] [facility] [place] [address] Apr, [facility] [address] [id number] [facility] [place] [address] Apr, [facility] [address] [id number] [place] [address] Apr, [facility] [id number] [place] [address] Apr, [facility] [address] [id number] [facility] [place] [address] Apr, [facility] [address] [id number] [place] [address] Apr, [facility] [address] [facility] [id number] [place] [address] Apr, [facility] [id number] [place] [address] Apr, [facility] [address] [id number] [place] [address] Apr, [facility] [address] [id number] [facility] [place] [address] Apr, [facility] [address] [id number] [place] [address] Mar, [facility] [id number] [place] [address] Mar, [facility] [address] [facility] [id number] [place] [address] Mar, [facility] [address] [id number] [place] [address] Mar, [facility] [id number] [place] [address] Mar, [facility] [id number] [place] [address] Mar, [facility] [id number] [place] [address] Mar, [facility] [address] [id number] [place] [address] Mar, [facility] [id number] [place] [address] Mar, [facility] [id number] [place] [address] Mar, 2013 [facility] [id number] [place] [address] Mar, 2013 [facility] [address] [id number] [place] [address] Mar, 2013 [facility] [address] [id number] [place] [address] Mar, 2013 [facility] [id number] [place] [address] Mar, 2013 [facility] [id number] [place] [address] 09 Mar, 2014 [facility] [address] [id number] [place] [address] Mar, [facility] [address] [id number] [place] [address] Mar, [facility] [address] [facility] [id number] [place] [address] Mar, [facility] [id number] [place] [address] Feb, [facility] [address] [id number] [place] [address] Feb, [facility] [id number] [place] [address] Feb, [facility] [id number] [place] [address] Feb, [facility] [id number] [place] [address] Feb, [facility] [id number] [place] [address] Feb, [facility] [id number] [place] [address] Feb, [facility] [id number] [place] [address] Feb, [facility] [id number] [place] [address] Feb, [facility] [id number] [place] [address] Feb, [facility] [address] [address] [id number] [place] [address] Feb, [facility] [id number] [place] [address] Feb, [facility] [id number] [place] [address] Feb, [facility] [id number] [place] [address] Feb, [facility] [address] [id number] [place] [address] January, [facility] [address] [facility] [id number] [place] [address] January, [facility] [id number] [place] [address] January, [facility] [id number] [place] [address] January, [facility] [address] [address] [facility] [id number] [place] [address] January, [facility] [id number] [place] [address] January, [facility] [id number] [place] [address] January, [facility] [id number] [place] [address] January, [facility] [id number] [place] [address] January, [facility] [id number] [place] [address] January, [facility] [id number] [place] [address] January, [facility] [id number] [place] [address] January, [facility] [id number] [place] [address] January, [facility] [address] [id number] [place] [address] January, [facility] [id number] [place] [address] Dec, [facility] [id number] [place] [address] Dec, [facility] [id number] [place] [address] Dec, [facility] [address] [id number] [facility] [place] [address] Dec, [facility] [address] [facility] [id number] [place] [address] Dec, [facility] [id number] [place] [address] Dec, [facility] [id number] [place] [address] Dec, [facility] [address] [facility] [id number] [place] [address] Dec, [facility] [id number] [place] [address] Dec, [facility] [id number] [place] [address] Dec, [facility] [id number] [place] [address] Nov, [facility] [id number] [place] [address] Nov, [facility] [id number] [place] [address] Nov, [facility] [id number] [place] [address] Nov, [facility] [id number] [place] [address] Nov, [facility] [address] [facility] [id number] [place] [address] Nov, [facility] [id number] [place] [address] 05 Nov, 2013 [facility] [id number] [place] [address] Nov, [facility] [id number] [place] [address] Nov, [facility] [id number] [place] [address] Nov, [facility] [id number] [place] [address] Oct, [facility] [id number] [place] [address] Oct, [facility] [id number] [place] [address] Oct, [facility] [id number] [place] [address] Oct, [facility] [id number] [place] [address] Oct, [facility] [id number] [place] [address] Oct, [facility] [id number] [place] [address] Oct, [facility] [id number] [place] [address] Oct, [facility] [id number] [place] [address] Oct, [facility] [id number] [place] [address] Oct, [facility] [id number] [place] [address] Oct, [facility] [id number] [place] [address] Oct, [facility] [id number] [place] [address] Oct, [facility] [id number] [place] [address] Oct, [facility] [id number] [place] [address] Sep, [facility] [address] [id number] [place] [address] 20 Sep, 2013 [facility] [address] [facility] [facility] [id number] [place] [address] 15 Sep, 2013 [facility] [id number] [place] [address] 15 Sep, 2013 [facility] [id number] [place] [address] 14 Sep, 2013 [facility] [id number] [place] [address] 14 Sep, 2013 [facility] [id number] [place] [address] 14 Sep, 2013 [facility] [id number] [place] [address] 14 Sep, 2013 [facility] [id number] [place] [address] 08 Sep, 2013 [facility] [id number] [place] [address] 08 Sep, 2013 [facility] [id number] [place] [address] 10 Aug, 2013 [facility] [id number] [place] [address] Aug, [facility] [id number] [place] [address] Jul, [facility] [id number] [place] [address] Jul, [facility] [id number] [place] [address] 13 Jul, 2013 [facility] [id number] [place] [address] Jul, [facility] [id number] [place] [address] Jul, [facility] [id number] [place] [address] 13 Jul, 2013 [facility] [id number] [place] [address] Jul, [facility] [id number] [place] [address] Jul, [facility] [id number] [place] [address] 08 Jul, 2012 [facility] [id number] [place] [address] 08 Jul, 2013 [facility] [id number] [place] [address] Jul, [facility] [id number] [place] [address] Jul, [facility] [id number] [place] [address] Jul, [facility] [id number] [place] [address] Jul, [facility] [id number] [place] [address] Jul, [facility] [id number] [place] [address] Jul, [facility] [id number] [place] [address] Jul, [facility] [id number] [place] [address] Jul, [facility] [id number] [place] [address] Jul, [facility] [id number] [place] [address] Jun, [facility] [id number] [place] [address] Jun, [facility] [id number] [place] [address] Jun, [facility] [id number] [place] [address] 16 Jun, 2012 [facility] [address] [facility] [id number] [place] [address] 16 Jun, 2012 [facility] [id number] [place] [address] 16 Jun, 2013 [facility] [id number] [place] [address] 10 Jun, 2012 [facility] [id number] [place] [address] 10 Jun, 2012 [facility] [id number] [place] [address] Jun, [facility] [id number] [place] [address] Jun, [facility] [id number] [place] [address] Jun, [facility] [address] [id number] [place] [address] 26 May, 2012 [facility] [address] [id number] [place] [address] 25 May, 2012 [facility] [address] [id number] [place] [address] 19 May, 2012 [facility] [address] [id number] [place] [address] 17 May, 2012 [facility] [address] [facility] [id number] [place] [address] 11 May, 2012 [facility] [address] [id number] [place] [address] 10 May, 2012 [facility] [address] [facility] [id number] [place] [address] 09 May, 2012 [facility] [address] [id number] [place] [address] 05 May, 2012 [facility] [address] [id number] [place] [address] Apr, [facility] [place] [facility] [address] [id number] [facility] [place] [address] Apr, [facility] [place] [facility] [address] [id number] [place] [address] Apr, [facility] [facility] [address] [facility] [id number] [place] [address] Apr, [facility] [place] [facility] [address] [facility] [id number] [place] [address] Apr, [facility] [place] [facility] [address] [facility] [id number] [place] [address] Mar, [facility] [place] [facility] [address] [facility] [id number] [place] [address] Mar, [facility] [place] [facility] [address] [id number] [place] [address] Mar, [facility] [place] [facility] [address] [id number] [place] [address] Mar, [facility] [place] [facility] [address] [id number] [place] [address] Mar, [facility] [place] [facility] [address] [id number] [place] [address] Mar, [facility] [place] [facility] [address] [id number] [place] [address] Mar, [facility] [place] [facility] [address] [id number] [place] [address] Mar, [facility] [place] [facility] [address] [id number] [place] [address] Feb, [facility] [place] [facility] [address] [facility] [id number] [place] [address] Feb, [facility] [place] [facility] [address] [id number] [place] [address] January, [facility] [place] [facility] [address] [id number] [place] [address] January, [facility] [place] [facility] [address] [id number] [place] [address] Dec, [facility] [address] [id number] [place] [address] 09 Dec, 2012 [facility] [address] [facility] [id number] [place] [address] 23 Nov, 2012 [facility] [facility] [address] [id number] [place] [address] Nov, [facility] [place] [facility] [address] [id number] [place] [address] Nov, [facility] [place] [facility] [address] [id number] [place] [address] 14 Nov, 2012 [facility] [facility] [address] [id number] [place] [address] 27 Oct, 2012 [facility] [place] [facility] [address] [id number] [place] [address] 26 Oct, 2012 [facility] [place] [facility] [address] [id number] [place] [address] 26 Oct, 2012 [facility] [place] [facility] [address] [id number] [place] [address] 26 Oct, 2012 [facility] [place] [facility] [address] [id number] [place] [address] 16 Oct, 2012 [facility] [place] [facility] [address] [id number] [place] [address] 14 Oct, 2012 [facility] [place] [facility] [address] [id number] [place] [address] 08 Oct, 2012 [facility] [id number] [place] [address] 07 Oct, 2012 [facility] [id number] [place] [address] 03 Oct, 2012 [facility] [id number] [place] [address] 30 Sep, 2012 [facility] [id number] [place] [address] Sep, [facility] [id number] [place] [address] 23 Sep, 2012 [facility] [id number] [place] [address] Sep, [facility] [id number] [place] [address] 17 Sep, 2012 [facility] [id number] [place] [address] Sep, [facility] [id number] [place] [address] 09 Sep, 2012 [facility] [id number] [place] [address] Sep, [facility] [id number] [place] [address] Aug, [facility] [id number] [place] [address] 31 Aug, 2012 [facility] [id number] [place] [address] Aug, [facility] [id number] [place] [address] Aug, [facility] [id number] [place] [address] Aug, [facility] [id number] [place] [address] Aug, [facility] [id number] [place] [address] Aug, [facility] [id number] [place] [address] Aug, [facility] [id number] [place] [address] Jul, [facility] [id number] [place] [address] Jul, [facility] [id number] [place] [address] Jul, [facility] [id number] [place] [address] Jul, [facility] [id number] [place] [address] Jul, [facility] [id number] [place] [address] Jul, [facility] [id number] [place] [address] Jun, [facility] [id number] [place] [address] Jun, [facility] [id number] [place] [address] Jun, [facility] [id number] [place] [address] Jun, [facility] [id number] [place] [address] Jun, [facility] [id number] [place] [address] Jun, [facility] [id number] [place] [address] 19 Jun, 2012 [facility] [id number] [place] [address] Jun, [facility] [id number] [place] [address] 10 Jun, 2012 [facility] [id number] [place] [address] 26 May, 2012 [facility] [id number] [place] [address] 24 Sep2011 [facility] [id number] [place] [address] 18 May, 2012 [facility] [id number] [place] [address] 30 Apr, 2012 [facility] [id number] [place] [address] Apr, [facility] [address] [id number] [facility] [place] [address] Apr, [facility] [id number] [facility] [place] [address] Apr, [facility] [id number] [place] [address] Apr, [facility] [id number] [facility] [place] [address] Apr, [facility] [id number] [facility] [place] [address] Mar, [facility] [id number] [place] [address] Mar, [facility] [id number] [place] [address] Mar, [facility] [id number] [place] [address] Mar, [facility] [id number] [place] [address] Feb, [facility] [id number] [place] [address] Feb, [facility] [id number] [place] [address] Feb, [facility] [id number] [place] [address] Feb, [facility] [id number] [place] [address] Feb, [facility] [id number] [place] [address] January, [facility] [id number] [place] [address] January, [facility] [id number] [place] [address] January, [facility] [id number] [facility] [place] [address] January, [facility] [id number] [place] [address] January, [facility] [id number] [facility] [place] [address] January, [facility] [id number] [place] [address] Dec, [facility] [id number] [facility] [place] [address] Dec, [facility] [id number] [facility] [facility] [address] Dec, [facility] [id number] [place] [address] Dec, [facility] [id number] [place] [address] Dec, [facility] [id number] [place] [address] Nov, [facility] [id number] [place] [address] Nov, [facility] [id number] [place] [address] Nov, [facility] [id number] [place] [address] Nov, [facility] [id number] [place] [address] Oct, [facility] [id number] [place] [address] Oct, [facility] [id number] [place] [address] 24 Oct, 2011 [facility] [id number] [place] [address] 13 Oct, 2011 [facility] [id number] [place] [address] Oct, [facility] [id number] [place] [address] Sep, [facility] [id number] [place] [address] Sep, [facility] [id number] [place] [address] Sep, [facility] [id number] [place] [address] Sep, [facility] [id number] [place] [address] Sep, [facility] [id number] [place] [address] Sep, [facility] [id number] [place] [address] Aug, [facility] [id number] [place] [address] Aug, [facility] [id number] [place] [address] Aug, [facility] [id number] [place] [address] Jul, [facility] [id number] [place] [address] Jul, [facility] [id number] [place] [address] Jul, [facility] [id number] [place] [address] Jul, [facility] [id number] [place] [address] Jun, [facility] [id number] [place] [address] Jun, [facility] [id number] [place] [address] Jun, [facility] [id number] [place] [address] 10 Jun, 2011 [facility] [id number] [place] [address] 10 Jun, 2011 [facility] [id number] [place] [address] 10 Jun, 2011 [facility] [id number] [place] [address] 11 Mar, 2011 [facility] [id number] [place] [address] 18 Dec, 2010 [facility] [id number] [place] [address] 11 Dec, 2010 [facility] [id number] [place] [address] 18 Nov, 2010 [facility] [id number] [place] [address] 16 Nov, 2010 [facility] [id number] [place] [address] Sep, [facility] [id number] [place] [address] 31 Aug, 2010 [facility] [id number] [place] [address] 29 Aug, 2010 [facility] [id number] [place] [address] 29 Aug, 2010 [facility] [id number] [place] [address] 29 Aug, 2010 [facility] [id number] [place] [address] 27 Aug, 2010 [facility] [id number] [place] [address] 14 Aug, 2010 [facility] [id number] [place] [address] 08 Aug, 2010 [facility] [id number] [place] [address] 08 Aug, 2010 [facility] [id number] [place] [address] Aug, [facility] [id number] [place] [address] Aug, [facility] [id number] [place] [address] Aug, [facility] [id number] [place] [address] Aug, [facility] [id number] [place] [address] Jul, [facility] [id number] [place] [address] Jul, [facility] [id number] [place] [address] Jul, [facility] [id number] [place] [address] Jul, [facility] [id number] [place] [address] Jul, [facility] [id number] [place] [address] Jul, [facility] [id number] [place] [address] Jun, [facility] [id number] [place] [address] Jun, [facility] [id number] [place] [address] Jun, [facility] [id number] [place] [address] Jun, [facility] [id number] [place] [address] 16 Apr, 2010 [facility] [id number] [place] [address] Mar, [facility] [id number] [place] [address] Feb, [facility] [id number] [place] [address] January, [facility] [id number] [place] [address] Dec, [facility] [id number] [place] [address] Nov, [facility] [id number] [place] [address] Aug, [facility] [id number] [place] [address] Aug, [facility] [id number] [place] [address] Aug, [facility] [id number] [place] [address] Jul, [facility] [id number] [place] [address] Jul, [facility] [id number] [place] [address] Jul, [facility] [id number] [place] [address] 30 Jun, 2009 [facility] [id number] [place] [address] Jun, [facility] [id number] [place] [address] Jun, [facility] [id number] [place] [address] Jun, [facility] [id number] [place] [address] Jun, [facility] [id number] [place] [address] Jun, [facility] [id number] [place] [address] Apr, [facility] [id number] [place] [address] Apr, [facility] [id number] [place] [address] Feb, [facility] [id number] [place] [address] January, [facility] [id number] [place] [address] Dec, IMMUNIZATIONS No Known Immunizations SOCIAL HISTORY Never Assessed REASON FOR VISIT PLAN OF CARE VITAL SIGNS MEDICATIONS Unknown Medications RESULTS No Results PROCEDURES Procedure Date Ordered Result Body Site PSYTX PT&/FAMILY 45 MINUTES Nov 15, 2013 INSTRUCTIONS MEDICATIONS ADMINISTERED No Known Medications MEDICAL (GENERAL) HISTORY Type Description Date Medical History type II diabetes Medical History coronary artery disease stress test Medical History chronic obstructive pulmonary disease (C OPD) Medical History gastroesophageal reflux disease (GERD) Medical History acute renal failure Medical History erectile dysfunction Medical History hyperlipidemia Medical History obesity Medical History skin cancer-basal cell R druze (removed ) Medical History Arthritis Medical History [...] History colonoscopy 2009 ([facility]), 2013 ([place] ) Surgical History heart cath: CAD w/ [...] History inability to urinate 09/16/15 Hospitalization History [facility] ea [facility]ly Hospitalization History hyperkalemia 10/2017 Hospitalization History fluid in lung
--- OUTSIDE RECORDS SUMMARY | 2020-03-01 16:50 | XMS REPORT ---
Author Author Michele WASHBURN Organization [facility] Address [address] [place] [address] Care Team Providers Care Manager Credit Name Role Phone NOEMI WASHBURN Unavailable PROBLEMS Type Condition ICD9-CM Code SUE66-YF Code Onset Dates Condition S tatus SNOMED Code Problem DM neuro manif type II E11.49 Active 10966172 Problem Chronic pain G89.29 Active 7127597 1 Problem Diabetes E11.9 Active 13869230 Problem Reactive airway disease J45.909 Active 212384213377 Problem Leukocytosis D72.829 Active 1252839 06 Problem Insomnia, unspecified type G47.00 Act sharon 542065466 Problem Bipolar I disorder, most recent episode (or curr ent) mixed, moderate F31.62 Active 63746772 Problem Primary osteoarthritis of right knee M17.11 Active 677292969829103 Problem Cough R05 Active 25106842 Problem Pure hypercholesterolemia E78.00 Acti ve 303819794 Problem Dysuria R30.0 Active 80973718 Problem Benign prostatic hyperplasia with lower urinary tract symptoms, unspecified morphology N40.1 Active 34785 6007 Problem Eustachian tube dysfunction, unspecified laterality H69.80 Active 63313111 Problem Polyneuropathy associated with underlying disease G63 Active 627702187 Problem Diabetic polyneuropathy associated with type 2 d iabetes mellitus E11.42 Active 08881364 Problem Anemia of chronic illness D63.8 Acti ve 424345101 Problem Chronic lymphocytic leukemia C91.10 A ctive 61532715 Problem Bilateral primary osteoarthritis of knee M17.0 Active 892290664 Problem 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 Active 038274868 Problem Eye exam abnormal R93.8 Active 16 7154258 Problem Retinal edema H35.81 Active 886841 6 Problem Lymphocytosis D72.820 Active 062225 09 Problem Bipolar disorder, in partial remission, most rec ent episode depressed F31.75 Active 36049534 Problem Hypokalemia E87.6 Active 15647876 Problem Falling R29.6 Active 201318130 Problem Pressure ulcer of other site, stage 3 L89.893 Active 415275733 Problem Other iron deficiency anemia D50.8 A ctive 10792813 Problem Mild cognitive impairment G31.84 Acti ve 367238684 Problem Skin cancer C44.90 Active 77041373 7 Problem senior care (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 Z79.4 Active 742452113 Problem Morbid obesity E66.01 Active 04088 6002 Problem Mood disorder F39 Active 869339 05 Problem Anxiety F41.9 Active 57459640 Problem Essential hypertension I10 Active 33140491 Problem Bipolar disorder F31.9 Active 137 86533 Problem Chronic diastolic (congestive) heart failure I50.3 2 Active 803549857 Problem Psychophysiological insomnia F51.04 A ctive 533500210 Problem Type 2 diabetes mellitus with diabetic neuropathy, uns pecified E11.40 Active 78292262 ALLERGIES No Information ENCOUNTERS Encounter Location Date Diagnosis [place] [address] [address] 06 Dec, 2019 [place] [address] [address] Nov, [place] [address] [address] Nov, [place] [address] [address] Nov, [place] [address] [address] Oct, [facility] [address] [address] Oct, [place] [address] [address] Oct, Bipolar disorder, in partial remission, most recent episode depressed F31.75 and Mild cognitive impairment G31.84 [place] [address] [address] 04 Oct, 2019 Mood disorder F39 [place] [address] [address] Sep, [facility] [address] [id number] [place] [address] Sep, Mood disorder F39 [facility] [address] [place] [id number] [place] [address] Sep, Bipolar disorder, in partial remission, most recent episode depressed F31.75 and Mild cognitive impairment G31.84 [facility] [address] [place] [id number] [place] [address] Sep, Mood disorder F39 [facility] [address] [place] [id number] [place] [address] Sep, [facility] [address] [place] [id number] [place] [address] Sep, Mood disorder F39 [facility] [address] [place] [id number] [place] [address] Sep, [facility] [address] [place] [id number] [place] [address] Aug, Mood disorder F39 [facility] [address] [place] [id number] [place] [address] Aug, [facility] [address] [place] [id number] [place] [address] Aug, [facility] [address] [place] [id number] [place] [address] Aug, [facility] [address] [place] [id number] [place] [address] Aug, [facility] [address] [id number] [place] [address] Aug, [facility] [address] [place] [id number] [place] [address] Aug, [facility] [address] [id number] [place] [address] Aug, [facility] [address] [place] [id number] [place] [address] Aug, Essential hypertension I10 [facility] [address] [id number] [place] [address] Aug, Bipolar disorder, in partial remission, most recent episode depressed F31.75 and Mild cognitive impairment G31.84 [facility] [address] [place] [id number] [place] [address] Aug, Mood disorder F39 [facility] [address] [place] [id number] [place] [address] Aug, [facility] [address] [place] [id number] [place] [address] Aug, Bipolar disorder, in partial remission, most recent episode depressed F31.75 and Mild cognitive impairment G31.84 [facility] [address] [place] [id number] [place] [address] Jul, Bipolar disorder, in partial remission, most recent episode depressed F31.75 and Mild cognitive impairment G31.84 [facility] [address] [place] [id number] [place] [address] Jul, Psychophysiological insomnia F51.04 [facility] [address] [place] [id number] [place] [address] Jul, [facility] [address] [place] [id number] [place] [address] Jul, [facility] [address] [place] [id number] [place] [address] Jul, [facility] [address] [place] [id number] [place] [address] Jul, [facility] [address] [place] [id number] [place] [address] Jul, [facility] [address] [place] [id number] [place] [address] Jul, [facility] [address] [place] [id number] [place] [address] Jul, Bipolar disorder, in partial remission, most recent episode depressed F31.75 and Mild cognitive impairment G31.84 [place] [address] [address] Jul, Chronic pain G89.29 ; Diabetes E11.9 ; E ssential hypertension I10 ; Ill feeling R68.89 ; Local infection of the skin and subcutaneous tissue, unspecified L08.9 and Other injury of unspecified body region, initial encounter T14.8XXA [place] [address] [address] Jun, Bipolar disorder, in partial remission, most recent episode depressed F31.75 and Mild cognitive impairment G31.84 [place] [address] [address] Jun, [place] [address] [address] Jun, Bipolar disorder, in partial remission, most recent episode depressed F31.75 and Mild cognitive impairment G31.84 [place] [address] [address] Jun, Psychophysiological insomnia F51.[address] [address] Jun, Psychophysiological insomnia F51.04 ; Ch ronic pain G89.29 ; Bipolar I disorder, most recent episode (or current) mixed, moderate F31.62 ; 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 ; Polyneuropathy associated with underlying disease G63 ; Type 2 diabetes mellitus with diabetic neuropathy, unspecified E11.40 ; 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 and Hyperglycemia R73.9 [place] [address] [address] Jun, Bipolar disorder, in partial remission, most recent episode depressed F31.75 and Mild cognitive impairment G31.84 [place] [address] [address] Jun, [place] [address] [address] Jun, Bipolar disorder F31.9 [facility] [address] [address] May, Bipolar disorder, in partial remission, most recent episode depressed F31.75 and Mild cognitive impairment G31.84 [facility] [address] [address] May, [facility] [address] [address] Apr, Chronic pain G89.29 and Bipolar disorder F31.9 [facility] [address] [address] Mar, Bipolar disorder F31.9 and Chronic pain G89.29 [facility] [address] [address] Feb, Bipolar disorder F31.9 [facility] [address] [address] Feb, Cellulitis of right upper extremity L03. 113 and Skin abrasion T14.8XXA [facility] [address] [address] Feb, Bipolar disorder, in partial remission, most recent episode depressed F31.75 and Mild cognitive impairment G31.84 [facility] [address] [address] Feb, Chronic pain G89.29 [facility] [address] [address] Feb, Bipolar disorder, in partial remission, most recent episode depressed F31.75 and Mild cognitive impairment G31.84 [facility] [address] [address] January, Bipolar disorder, in partial remission, most recent episode depressed F31.75 and Mild cognitive impairment G31.84 [facility] [address] [address] January, Chronic pain G89.29 and Bipolar disorder F31.9 [place] [address] [place] [id number] [place] [address] January, Bipolar disorder, in partial remission, most recent episode depressed F31.75 and Mild cognitive impairment G31.84 [facility] [address] [place] [id number] [place] [address] Dec, [facility] [address] [address] Dec, Chronic pain G89.29 and Bipolar disorder F31.9 [place] [address] [address] Dec, Edema of both lower extremities R60.0 [place] [address] [address] Dec, Bipolar disorder F31.9 [place] [address] [address] Dec, Bipolar disorder, in partial remission, most recent episode depressed F31.75 and Mild cognitive impairment G31.84 [place] [address] [place] [id number] [place] [address] Nov, [place] [address] [address] Nov, Chronic pain G89.29 [place] [address] [address] Nov, Bipolar disorder, in partial remission, most recent episode depressed F31.75 and Mild cognitive impairment G31.84 [place] [address] [address] Nov, Bipolar disorder F31.9 [facility] [address] [address] 04 Nov, 2018 Encounter for Medicare annual [...] unspecified morphology N40.1 and Essential hypertension I10 [address] [address] Oct, Chronic pain G89.[address] [address] Oct, Diabetes E11.[address] [address] Oct, Bipolar I disorder, most recent episode (or current) mixed, moderate F31.62 and Mild cognitive impairment G31.[address] [address] Oct, Bipolar I disorder, most recent episode (or current) mixed, moderate F31.62 and Mild cognitive impairment G31.[address] [address] Sep, Bipolar I disorder, most recent episode (or current) mixed, moderate F31.62 and Mild cognitive impairment G31.[address] [address] Sep, [address] [address] Sep, Diabetes E11.9 ; Hypoxia R09.02 ; Hyperg lycemia R73.9 ; Therapeutic drug monitoring Z51.81 ; BMI 50.0-59.9, adult Z68.43 and Skin cancer C44.[address] [address] Sep, Chronic pain G89.[address] [address] Sep, Bipolar I disorder, most recent episode (or current) mixed, moderate F31.62 [facility] [address] [address] Sep, [facility] [address] [address] Sep, [facility] [address] [address] Aug, Chronic pain G89.29 [facility] [address] [address] Aug, Bipolar I disorder, most recent episode (or current) mixed, moderate F31.62 [facility] [address] [address] Aug, Bipolar I disorder, most recent episode (or current) mixed, moderate F31.62 and Mild cognitive impairment G31.84 [facility] [address] [address] Jul, [facility] [address] [address] Jul, Chronic pain G89.29 [facility] [address] [address] Jul, Bipolar I disorder, most recent episode (or current) mixed, moderate F31.62 and Mild cognitive impairment G31.84 [facility] [address] [address] Jul, Bipolar I disorder, most recent episode (or current) mixed, moderate F31.62 and MCI (mild cognitive impairment) G31.84 [facility] [address] [address] Jul, [facility] [address] [address] Jul, [facility] [address] [address] Jul, Bipolar I disorder, most recent episode (or current) mixed, moderate F31.62 [facility] [address] [place] [address] Jul, Chronic pain G89.29 [facility] [address] [address] Jun, Bipolar I disorder, most recent episode (or current) mixed, moderate F31.62 [facility] [address] [place] [id number] [place] [address] Jun, Pre-procedure lab exam Z01.812 [place] [address] [place] [id number] [place] [address] Jun, [facility] [address] [facility] [id number] Jun, [place] [address] [place] [id number] [place] [address] Jun, [place] [address] [address] Jun, Forgetfulness R68.89 ; Pre-syncope R55 ; Localized edema R60.0 ; Other iron deficiency anemia D50.8 and BMI 50.0-59.9, adult Z68.43 [facility] [address] [address] Jun, Chronic pain G89.29 [facility] [address] [address] Jun, Chronic pain G89.29 [facility] [address] [address] Jun, Bipolar I disorder, most recent episode (or current) mixed, moderate F31.62 [facility] [address] [address] May, Chronic pain G89.29 [facility] [address] [address] Apr, [facility] [address] [address] Apr, Chronic pain G89.29 [place] [address] [address] Apr, Primary osteoarthritis of right knee M17 .11 [place] [address] [address] Mar, [place] [address] [address] Mar, BMI 50.0-59.9, adult Z68.43 and Bipolar disorder, in partial remission, most recent episode depressed F31.75 [place] [address] [address] Mar, Diabetes E11.9 ; Pure hypercholesterolem ia E78.00 ; Essential hypertension I10 ; Nausea with vomiting, unspecified R11.2 and Headache, unspecified headache type R51 [place] [address] [address] Mar, Bipolar I disorder, most recent episode (or current) mixed, moderate F31.62 [place] [address] [address] Mar, Bipolar I disorder, most recent episode (or current) mixed, moderate F31.62 [place] [address] [address] Mar, Chronic pain G89.29 [place] [address] [address] Mar, Bipolar I disorder, most recent episode (or current) mixed, moderate F31.62 [place] [address] [address] Feb, Bipolar I disorder, most recent episode (or current) mixed, moderate F31.62 [place] [address] [address] 14 Feb, 2018 Chronic pain G89.29 [place] [address] [address] 06 Feb, 2018 Decubitus ulcer of right foot, stage 3 L 89.893 and BMI 50.0-59.9, adult Z68.43 [place] [address] [address] Feb, Bipolar I disorder, most recent episode (or current) mixed, moderate F31.62 [place] [address] [address] Feb, [place] [address] [address] January, [place] [address] [address] January, Chronic pain G89.29 [place] [address] [address] January, Bipolar I disorder, most recent episode (or current) mixed, moderate F31.62 [place] [address] [address] January, Bipolar I disorder, most recent episode (or current) mixed, moderate F31.62 [place] [address] [address] Dec, Bipolar I disorder, most recent episode (or current) mixed, moderate F31.62 and BMI 50.0-59.9, adult Z68.43 [place] [address] [address] Dec, Bipolar I disorder, most recent episode (or current) mixed, moderate F31.62 [place] [address] [address] Dec, Chronic pain G89.29 [place] [address] [address] 18 Dec, 2017 DM neuro manif type II E11.49 ; Right fl ank pain R10.9 ; senior care 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 Z79.891 ; Encounter for medication monitoring Z51.81 and BMI 50.0-59.9, adult Z68.43 [place] [address] [address] Dec, Bipolar I disorder, most recent episode (or current) mixed, moderate F31.62 [facility] [address] [address] Nov, Bipolar I disorder, most recent episode (or current) mixed, moderate F31.62 [place] [address] [address] Nov, Chronic pain G89.29 [place] [address] [address] Nov, Bipolar I disorder, most recent episode (or current) mixed, moderate F31.62 [place] [address] [address] Nov, Hypokalemia E87.6 [place] [address] [address] Nov, Bipolar I disorder, most recent episode (or current) mixed, moderate F31.62 [place] [address] [address] Oct, Chronic pain G89.29 [place] [address] [address] Oct, BMI 50.0-59.9, adult Z68.43 and Bipolar I disorder, most recent episode (or current) mixed, moderate F31.62 [place] [address] [address] Oct, Bipolar I disorder, most recent episode (or current) mixed, moderate F31.62 [place] [address] [address] Oct, [place] [address] [address] Oct, Hypokalemia E87.6 [place] [address] [address] Oct, DM neuro manif type II E11.49 [place] [address] [address] Oct, Bipolar I disorder, most recent episode (or current) mixed, moderate F31.62 [place] [address] [address] 20 Oct, 2017 Bipolar I disorder, most recent episode (or current) mixed, moderate F31.62 [place] [address] [address] 14 Oct, 2017 Hyperkalemia E87.5 ; Falling R29.6 ; BMI 50.0-59.9, adult Z68.43 and Acute left ankle pain M25.[address] [address] 08 Oct, 2017 DM neuro manif type II E11.[address] [address] Oct, [address] [address] Sep, Chronic pain G89.[address] [address] Sep, [address] [address] Sep, Bilateral primary osteoarthritis of knee M17.[address] [address] Sep, Generalized edema R60.[address] [address] Sep, Bipolar I disorder, most recent episode (or current) mixed, moderate F31.62 [place] [address] [address] 15 Sep, 2017 Hypoxia R09.02 ; Other hypervolemia E87. 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 ; Anemia of chronic illness D63.8 and BMI 50.0-59.9, adult Z68.43 [place] [address] [address] Sep, [place] [address] [address] Sep, Bipolar I disorder, most recent episode (or current) mixed, moderate F31.62 [place] [address] [address] Aug, Chronic pain G89.29 [place] [address] [address] Aug, Generalized edema R60.1 [place] [address] [address] Aug, [place] [address] [address] Aug, [place] [address] [address] Aug, Bipolar I disorder, most recent episode (or current) mixed, moderate F31.62 [place] [address] [address] Aug, Bipolar I disorder, most recent episode (or current) mixed, moderate F31.62 [place] [address] [address] 04 Aug, 2017 Chronic pain G89.29 [place] [address] [address] Jul, Bipolar I disorder, most recent episode (or current) mixed, moderate F31.62 [place] [address] [address] Jul, Bipolar I disorder, most recent episode (or current) mixed, moderate F31.62 and BMI 60.0-69.9, adult Z68.44 [facility] [address] [address] 16 Jul, 2017 Bipolar I disorder, most recent episode (or current) mixed, moderate F31.62 [facility] [address] [address] Jul, Chronic pain G89.29 [facility] [address] [address] Jul, Bipolar I disorder, most recent episode (or current) mixed, moderate F31.62 [facility] [address] [address] Jun, Polyneuropathy associated with underlyin g disease G63 and Diabetes E11.9 [facility] [address] [address] Jun, Bipolar I disorder, most recent episode (or current) mixed, moderate F31.62 [facility] [address] [address] Jun, Chronic pain G89.29 [facility] [address] [address] 27 May, 2017 Bipolar I disorder, most recent episode (or current) mixed, moderate F31.62 [facility] [address] [address] 21 May, 2017 Bipolar I disorder, most recent episode (or current) mixed, moderate F31.62 [facility] [address] [address] 20 May, 2017 Diabetic polyneuropathy associated with type 2 diabetes mellitus E11.42 [facility] [address] [address] 18 May, 2017 Bipolar I disorder, most recent episode (or current) mixed, moderate F31.62 [facility] [address] [address] 13 May, 2017 Bipolar I disorder, most recent episode (or current) mixed, moderate F31.62 [facility] [address] [address] May, Chronic pain G89.29 [facility] [address] [place] [address] Apr, Bipolar I disorder, most recent episode (or current) mixed, moderate F31.62 [facility] [address] [address] Apr, [place] [address] [place] [address] Apr, Chronic pain G89.29 and DM neuro manif t ype II E11.49 [place] [address] [address] Apr, [place] [address] [address] Apr, Bipolar I disorder, most recent episode (or current) mixed, moderate F31.62 [place] [address] [address] Apr, Chronic pain G89.29 [place] [address] [address] Apr, Iliotibial band syndrome, left M76.32 [place] [address] [address] Apr, Bipolar I disorder, most recent episode (or current) mixed, moderate F31.62 [place] [address] [address] Mar, Bipolar I disorder, most recent episode (or current) mixed, moderate F31.62 [place] [address] [address] Mar, Bipolar I disorder, most recent episode (or current) mixed, moderate F31.62 [place] [address] [address] Mar, [facility] [address] [address] Mar, Bipolar I disorder, most recent episode (or current) mixed, moderate F31.62 [facility] [address] [address] Mar, Chronic pain G89.29 [facility] [address] [address] Mar, Bipolar I disorder, most recent episode (or current) mixed, moderate F31.62 [facility] [address] [address] Mar, Bipolar I disorder, most recent episode (or current) mixed, moderate F31.62 [place] [address] [address] Mar, Acute pain of left knee M25.562 ; Left h ip pain M25.552 ; Generalized edema R60.1 and Tongue swelling R22.0 [place] [address] [address] Mar, [facility] [address] [address] Feb, Chronic pain G89.29 [facility] [address] [address] Feb, Diabetes E11.9 [place] [address] [address] January, Chronic pain G89.29 [facility] [address] [address] January, [facility] [address] [address] January, Bipolar I disorder, most recent episode (or current) mixed, moderate F31.62 [facility] [address] [address] Dec, Bipolar I disorder, most recent episode (or current) mixed, moderate F31.62 [place] [address] [address] Dec, Chronic pain G89.29 [facility] [address] [address] Dec, Bipolar I disorder, most recent episode (or current) mixed, moderate F31.62 [facility] [address] [address] Dec, Diabetes E11.9 ; Essential hypertension I10 ; Chronic pain G89.29 and Morbid obesity E66.01 [facility] [address] [address] Dec, [facility] [address] [address] Dec, Bipolar I disorder, most recent episode (or current) mixed, moderate F31.62 [place] [address] [address] Dec, Bipolar I disorder, most recent episode (or current) mixed, moderate F31.62 [facility] [address] [address] Nov, Chronic pain G89.29 [facility] [address] [address] Nov, Bipolar I disorder, most recent episode (or current) mixed, moderate F31.62 [facility] [address] [address] Nov, [facility] [address] [address] Nov, Bipolar I disorder, most recent episode (or current) mixed, moderate F31.62 [facility] [address] [address] Nov, Bipolar I disorder, most recent episode (or current) mixed, moderate F31.62 [facility] [address] [address] Nov, [place] [id number] [address] Nov, [facility] [address] [address] Nov, [facility] [address] [address] Oct, Chronic pain G89.29 [facility] [address] [address] Oct, Bipolar I disorder, most recent episode (or current) mixed, moderate F31.62 [facility] [address] [address] Oct, [facility] [address] [address] Oct, Chronic pain G89.29 ; Diabetes E11.9 ; A nxiety F41.9 and 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 [facility] [address] [address] Oct, [facility] [address] [address] Oct, Diabetes E11.9 [facility] [address] [address] Oct, Bipolar I disorder, most recent episode (or current) mixed, moderate F31.62 [facility] [address] [address] Sep, Chronic pain G89.29 [facility] [address] [address] Sep, Chronic pain G89.29 [facility] [address] [address] Aug, Chronic pain G89.29 [facility] [address] [address] Jul, [facility] [address] [address] Jul, Diabetes E11.9 [place] [address] [address] Jul, Chronic pain G89.29 [place] [address] [place] [id number] Jul, Bipolar I disorder, most recent episode (or current) mixed, moderate F31.62 [place] [address] [address] Jun, Bipolar I disorder, most recent episode (or current) mixed, moderate F31.62 [place] [address] [address] Jun, [place] [address] [address] Jun, Bipolar I disorder, most recent episode (or current) mixed, moderate F31.62 [place] [address] [address] May, Insomnia, unspecified type G47.00 [place] [address] [address] May, Bipolar I disorder, most recent episode (or current) mixed, moderate F31.62 [place] [address] [address] 14 May, 2016 [place] [address] [address] 08 May, 2016 Bipolar I disorder, most recent episode (or current) mixed, moderate F31.62 [place] [address] [address] 06 May, 2016 Diabetes E11.9 and Essential hypertensio n I10 [place] [address] [address] Apr, Chronic pain G89.29 [place] [address] [address] Apr, Bipolar I disorder, most recent episode (or current) mixed, moderate F31.62 [place] [address] [address] Apr, [place] [address] [address] Apr, [place] [address] [address] Mar, Chronic pain G89.29 ; Headache, unspecif ied headache type R51 ; Neuropathy G62.9 ; Pain of right hip joint M25.551 and Essential hypertension I10 [place] [address] [address] Mar, Chronic pain G89.29 [place] [address] [address] Mar, Bipolar I disorder, most recent episode (or current) mixed, moderate F31.62 [place] [address] [address] Feb, Bipolar I disorder, most recent episode (or current) mixed, moderate F31.62 and Insomnia, unspecified type G47.00 [place] [address] [address] Feb, Chronic pain G89.29 [place] [address] [address] Feb, Bipolar I disorder, most recent episode (or current) mixed, moderate F31.62 [place] [address] [address] January, Bipolar I disorder, most recent episode (or current) mixed, moderate F31.62 [place] [address] [address] January, Chronic pain G89.29 [place] [address] [address] January, Chronic pain G89.29 and Essential hypert ension I10 [facility] [address] [address] January, Bipolar I disorder, most recent episode (or current) mixed, moderate F31.62 [facility] [address] [address] Dec, [facility] [address] [address] Dec, [facility] [address] [address] Dec, [facility] [address] [address] Dec, [facility] [address] [address] Nov, Reactive airway disease J45.909 [place] [address] [address] Nov, [facility] [address] [address] Nov, [facility] [address] [address] Nov, [facility] [address] [address] Nov, [place] [address] [address] Nov, Onychomycosis B35.1 ; Hammertoe M20.40 ; Verona or callus L84 and DM neuro manif type II E11.49 [place] [address] [address] Nov, Chronic pain G89.29 ; Leukocytosis D72.8 29 and Diabetes E11.9 [facility] [address] [address] Nov, [facility] [address] [address] Oct, Bronchitis J40 [place] [address] [address] Oct, [place] [address] [address] Oct, [place] [address] [address] Oct, Mastoiditis, unspecified laterality H70. 90 and Type 2 diabetes mellitus with complication E11.8 [place] [address] [address] Sep, [address] [address] Sep, Dysuria R30.0 ; Cough R05 ; Benign prost atic hyperplasia with lower urinary tract symptoms, unspecified morphology N40.1 ; Hypokalemia E87.6 and Eustachian tube dysfunction, unspecified laterality H69.80 [place] [address] [address] Sep, Moderate mixed bipolar I disorder F31.[address] [address] Sep, Hypokalemia E87.[address] [address] Sep, [place] [address] [address] Sep, Upper respiratory tract infection, unspe cified type J06.9 [place] [address] [address] Aug, [address] [address] Aug, Dysuria R30.0 [place] [address] [address] Aug, [address] [address] Jul, [facility] [address] [place] [id number] [place] [address] Jul, [facility] [address] [place] [id number] [place] [address] Jul, [facility] [address] [place] [id number] [place] [address] Jul, [facility] [address] [address] Jun, [facility] [address] [place] [id number] [place] [address] Jun, [facility] [address] [place] [id number] [place] [address] Jun, [facility] [address] [place] [id number] [place] [address] May, [facility] [address] [place] [id number] [place] [address] May, Bipolar I disorder, most recent episode (or current) mixed, moderate 296.62 [facility] [address] [place] [id number] [place] [address] May, [facility] [address] [place] [id number] [place] [address] May, Bipolar I disorder, most recent episode (or current) mixed, moderate 296.62 and Major depressive disorder, recurrent episode, severe, specified as with psychotic behavior 296.34 [facility] [address] [place] [id number] [place] [address] May, Bipolar I disorder, most recent episode (or current) mixed, moderate 296.62 [facility] [address] [place] [id number] [place] [address] May, [facility] [address] [address] Apr, [facility] [address] [address] Apr, [facility] [address] [place] [id number] [place] [address] Apr, Unspecified disorder of kidney and urete r 593.9 and Diabetes mellitus type 2, uncontrolled 250.02 [facility] [address] [place] [id number] [place] [address] Apr, [facility] [address] [address] Apr, [facility] [address] [address] Apr, [facility] [address] [address] Apr, [facility] [address] [address] Apr, Diabetes mellitus type II, uncontrolled 250.02 [facility] [address] [address] Apr, [facility] [address] [address] Mar, [facility] [address] [address] Mar, [facility] [address] [address] Mar, [facility] [address] [address] Mar, Major depressive disorder, recurrent epi sode, severe, specified as with psychotic behavior 296.34 and Bipolar I disorder, most recent episode (or current) mixed, moderate 296.62 [facility] [address] [address] Mar, Diabetes 250.00 ; Anuria 788.5 ; Nausea and vomiting 787.01 and Diarrhea 787.91 [facility] [address] [address] Mar, Diabetes 250.00 [facility] [address] [place] [id number] [place] [address] Mar, [facility] [address] [address] Mar, Diabetes 250.00 [facility] [address] [address] Mar, [facility] [address] [address] Mar, [facility] [address] [address] Mar, [facility] [address] [address] Mar, [facility] [address] [address] Mar, Bipolar I disorder, most recent episode (or current) mixed, moderate 296.62 and Major depressive disorder, recurrent episode, severe, specified as with psychotic behavior 296.34 [facility] [address] [place] [address] Mar, Magnesium deficiency 275.2 ; Hypokalemia 276.8 ; Nausea & vomiting 787.01 and Diabetes mellitus type 2, uncontrolled 250.02 [facility] [address] [address] Feb, [address] [address] Feb, Bipolar I disorder, most recent episode (or current) mixed, moderate 296.62 [facility] [address] [address] Feb, Nausea and vomiting 787.01 ; Left elbow pain 719.42 ; Anuria 788.5 and Diabetes 250.00 [facility] [address] [address] Feb, [facility] [address] [place] [address] Feb, Hypopotassemia 276.8 and Hypokalemia 276 .8 [facility] [address] [address] Feb, Hypopotassemia 276.8 and Hypokalemia 276 .8 [facility] [address] [address] Feb, Seborrheic keratoses 702.19 [facility] [address] [address] Feb, Hypopotassemia 276.8 and Low magnesium l evels 275.2 [facility] [address] [address] January, [facility] [address] [address] January, [facility] [address] [address] January, [facility] [address] [address] January, Scalp lesion 709.9 [facility] [address] [address] January, [facility] [address] [address] Dec, Tear of medial cartilage or meniscus of knee, current 836.0 and 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 [facility] [address] [address] Dec, [facility] [address] [address] Dec, [facility] [address] [address] Dec, Squamous cell carcinoma, 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 42 [facility] [address] [address] 14 Dec, 2014 [facility] [address] [address] 13 Dec, 2014 [facility] [address] [id number] [place] [address] Nov, [facility] [address] [id number] [place] [address] Nov, [facility] [address] [id number] [place] [address] Nov, [facility] [address] [id number] [place] [address] Nov, [facility] [address] [id number] [place] [address] Nov, [facility] [address] [id number] [place] [address] Nov, [facility] [address] [id number] [place] [address] Nov, [facility] [address] [id number] [place] [address] Nov, [facility] [address] [id number] [place] [address] Nov, [facility] [address] [id number] [place] [address] Nov, [facility] [address] [id number] [place] [address] Nov, [facility] [address] [id number] [place] [address] Nov, [facility] [address] [id number] [place] [address] Oct, 2014 [facility] [address] [id number] [place] [address] Oct, 2014 [facility] [address] [id number] [place] [address] Oct, 2014 [facility] [address] [id number] [place] [address] Oct, 2014 [facility] [address] [id number] [place] [address] Oct, [facility] [address] [id number] [place] [address] Oct, [facility] [address] [id number] [place] [address] Oct, [facility] [address] [id number] [place] [address] Oct, [facility] [address] [id number] [place] [address] Oct, [facility] [address] [id number] [place] [address] Sep, [facility] [address] [id number] [place] [address] Sep, [facility] [address] [id number] [place] [address] Sep, [facility] [address] [id number] [place] [address] Sep, [facility] [address] [id number] [place] [address] Sep, [facility] [address] [id number] [place] [address] Sep, [facility] [address] [id number] [place] [address] Sep, [facility] [address] [id number] [place] [address] Sep, [facility] [address] [id number] [place] [address] Sep, [facility] [address] [id number] [place] [address] Sep, [facility] [address] [id number] [place] [address] Sep, [facility] [address] [id number] [place] [address] Sep, [facility] [address] [facility] [id number] [place] [address] Sep, [facility] [address] [facility] [id number] [place] [address] Sep, [facility] [address] [id number] [place] [address] Sep, [facility] [address] [id number] [place] [address] Sep, [facility] [address] [facility] [id number] [place] [address] Aug, [facility] [address] [id number] [place] [address] Aug, [facility] [address] [id number] [place] [address] Aug, [facility] [address] [id number] [place] [address] Aug, [facility] [address] [facility] [id number] [place] [address] Aug, [facility] [address] [id number] [place] [address] Aug, [facility] [address] [id number] [place] [address] Aug, [facility] [address] [id number] [place] [address] Aug, [facility] [address] [facility] [id number] [place] [address] Aug, [facility] [address] [id number] [place] [address] Aug, [facility] [address] [id number] [place] [address] Aug, [facility] [address] [place] [id number] Aug, [facility] [address] [id number] [place] [address] 10 Aug, 2014 [facility] [address] [facility] [id number] [place] [address] Aug, [facility] [address] [id number] [place] [address] Aug, [facility] [address] [id number] [place] [address] Aug, [facility] [address] [id number] [place] [address] Aug, [facility] [address] [id number] [place] [address] Aug, [facility] [address] [id number] [place] [address] Aug, [facility] [address] [id number] [place] [address] 08 Aug, 2014 [facility] [address] [id number] [place] [address] Aug, [facility] [address] [id number] [place] [address] Aug, [facility] [address] [id number] [place] [address] Aug, [facility] [address] [id number] [place] [address] Aug, [facility] [address] [id number] [place] [address] Aug, [facility] [address] [id number] [place] [address] Aug, [facility] [address] [id number] [place] [address] Aug, [facility] [address] [id number] [place] [address] Aug, [facility] [address] [id number] [place] [address] Aug, [facility] [address] [id number] [place] [address] Aug, [facility] [address] [id number] [place] [address] Jul, [facility] [address] [id number] [place] [address] Jul, [facility] [address] [id number] [place] [address] Jul, [facility] [address] [id number] [place] [address] Jul, [facility] [address] [id number] [place] [address] Jul, [facility] [address] [id number] [place] [address] Jul, [facility] [address] [id number] [place] [address] Jul, [facility] [address] [id number] [place] [address] Jul, [facility] [address] [id number] [place] [address] Jul, [facility] [address] [id number] [place] [address] Jul, [facility] [address] [id number] [place] [address] Jun, [facility] [address] [id number] [place] [address] Jun, [facility] [address] [id number] [place] [address] Jun, [facility] [place] [facility] [id number] [place] [address] 16 Jun, 2014 [facility] [place] [facility] [address] [id number] [place] [address] 15 Jun, 2014 [facility] [place] [facility] [address] [id number] [place] [address] Jun, [facility] [place] [facility] [address] [facility] [id number] [place] [address] Jun, [facility] [place] [facility] [address] [id number] [place] [address] Jun, [facility] [place] [facility] [address] [id number] [place] [address] Jun, [facility] [place] [facility] [address] [id number] [place] [address] Jun, [facility] [place] [facility] [address] [facility] [id number] [place] [address] 29 May, 2013 [facility] [place] [facility] [address] [id number] [place] [address] 29 May, 2013 [facility] [place] [facility] [address] [id number] [place] [address] 26 May, 2013 [facility] [place] [facility] [address] [id number] [place] [address] 26 May, 2013 [facility] [place] [facility] [address] [id number] [place] [address] 17 Sep, 2013 [facility] [place] [facility] [address] [id number] [place] [address] 17 May, 2013 [facility] [place] [facility] [address] [id number] [place] [address] 15 Sep, 2013 [facility] [place] [facility] [address] [id number] [place] [address] 15 Sep, 2013 [facility] [place] [facility] [address] [id number] [place] [address] 15 Sep, 2013 [facility] [place] [facility] [address] [id number] [place] [address] 15 Sep, 2013 [facility] [place] [facility] [address] [id number] [place] [address] 10 May, 2013 [facility] [place] [facility] [address] [id number] [place] [address] 10 May, 2013 [facility] [place] [facility] [address] [id number] [place] [address] May, 2013 [facility] [place] [facility] [address] [id number] [place] [address] May, [facility] [place] [facility] [address] [facility] [id number] [facility] [place] [address] May, [facility] [place] [facility] [address] [id number] [facility] [place] [address] May, [facility] [place] [facility] [address] [facility] [id number] [place] [address] Apr, [facility] [place] [facility] [address] [id number] [place] [address] Apr, [facility] [place] [facility] [address] [facility] [id number] [place] [address] Apr, [facility] [place] [facility] [address] [id number] [facility] [place] [address] Apr, [facility] [place] [facility] [address] [id number] [place] [address] Apr, [facility] [place] [facility] [address] [facility] [id number] [facility] [place] [address] Apr, [facility] [address] [id number] [facility] [address] Apr, [facility] [address] [id number] [place] [address] Apr, [facility] [address] [id number] [facility] [address] Apr, [facility] [address] [facility] [id number] [facility] [address] Apr, [facility] [address] [id number] [place] [address] Apr, [facility] [address] [facility] [id number] [place] [address] Apr, [facility] [address] [id number] [place] [address] Apr, [facility] [address] [id number] [place] [address] Apr, [facility] [address] [facility] [id number] [place] [address] Apr, [facility] [address] [facility] [id number] [place] [address] Mar, [facility] [address] [facility] [id number] [place] [address] Mar, [facility] [address] [facility] [id number] [place] [address] Mar, [facility] [address] [facility] [id number] [place] [address] Mar, [facility] [address] [id number] [place] [address] Mar, [facility] [address] [id number] [place] [address] Mar, [facility] [address] [id number] [place] [address] Mar, [facility] [address] [facility] [id number] [place] [address] Mar, [facility] [address] [id number] [place] [address] Mar, [facility] [address] [id number] [place] [address] Mar, 2013 [facility] [address] [facility] [id number] [place] [address] Mar, 2013 [facility] [address] [facility] [id number] [place] [address] Mar, 2013 [facility] [address] [id number] [place] [address] Mar, 2013 [facility] [address] [id number] [place] [address] Mar, 2013 [facility] [address] [id number] [place] [address] Mar, 2013 [facility] [address] [facility] [id number] [place] [address] Mar, 2013 [facility] [address] [facility] [id number] [place] [address] Mar, [facility] [address] [facility] [id number] [place] [address] Mar, [facility] [address] [facility] [id number] [place] [address] Feb, [facility] [address] [facility] [id number] [place] [address] Feb, [facility] [address] [id number] [place] [address] Feb, [facility] [address] [id number] [place] [address] Feb, [facility] [address] [id number] [place] [address] Feb, [facility] [address] [id number] [place] [address] Feb, [facility] [address] [id number] [place] [address] Feb, [facility] [address] [id number] [place] [address] Feb, [facility] [address] [id number] [place] [address] Feb, [facility] [address] [facility] [id number] [place] [address] Feb, [facility] [address] [facility] [id number] [place] [address] Feb, [facility] [address] [facility] [id number] [place] [address] Feb, [facility] [address] [id number] [place] [address] Feb, [facility] [address] [id number] [place] [address] Feb, [facility] [address] [facility] [id number] [place] [address] January, [facility] [address] [facility] [id number] [place] [address] January, [facility] [address] [id number] [place] [address] January, [facility] [address] [id number] [place] [address] January, [facility] [address] [facility] [id number] [place] [address] January, [facility] [address] [id number] [place] [address] January, [facility] [address] [id number] [place] [address] January, [facility] [address] [id number] [place] [address] January, [facility] [address] [id number] [place] [address] January, [facility] [address] [id number] [place] [address] January, [facility] [address] [id number] [place] [address] January, [facility] [address] [id number] [place] [address] January, [facility] [address] [id number] [place] [address] January, [facility] [address] [id number] [place] [address] January, [facility] [address] [id number] [place] [address] Dec, [facility] [address] [id number] [place] [address] Dec, [facility] [address] [facility] [id number] [place] [address] Dec, [facility] [address] [facility] [id number] [place] [address] Dec, [facility] [address] [id number] [place] [address] Dec, [facility] [address] [id number] [place] [address] Dec, [facility] [address] [id number] [place] [address] Dec, [facility] [address] [id number] [place] [address] Dec, [facility] [address] [id number] [place] [address] Dec, [facility] [address] [id number] [place] [address] Dec, [facility] [address] [id number] [place] [address] Nov, [facility] [address] [id number] [place] [address] Nov, [facility] [address] [id number] [place] [address] Nov, [facility] [address] [id number] [place] [address] Nov, [facility] [address] [id number] [place] [address] Nov, [facility] [address] [facility] [id number] [place] [address] Nov, [facility] [address] [id number] [place] [address] Nov, [facility] [address] [id number] [place] [address] Nov, [facility] [address] [id number] [place] [address] Nov, [facility] [address] [id number] [place] [address] Nov, [facility] [address] [id number] [place] [address] Oct, [facility] [address] [id number] [place] [address] Oct, [facility] [address] [id number] [place] [address] Oct, [facility] [address] [id number] [place] [address] Oct, [facility] [address] [id number] [place] [address] Oct, [facility] [address] [id number] [place] [address] Oct, [facility] [address] [id number] [place] [address] Oct, [facility] [address] [id number] [place] [address] Oct, [facility] [address] [id number] [place] [address] Oct, [facility] [address] [id number] [place] [address] Oct, [facility] [address] [id number] [place] [address] Oct, [facility] [address] [facility] [id number] [place] [address] Oct, [facility] [address] [id number] [place] [address] Oct, [facility] [address] [id number] [place] [address] Oct, [facility] [address] [id number] [place] [address] Sep, [facility] [address] [id number] [place] [address] 20 Sep, 2013 [facility] [address] [id number] [place] [address] 15 Sep, 2013 [facility] [address] [id number] [place] [address] 15 Sep, 2013 [facility] [address] [id number] [place] [address] 14 Sep, 2013 [facility] [address] [id number] [place] [address] 14 Sep, 2013 [facility] [address] [id number] [place] [address] 14 Sep, 2013 [facility] [address] [id number] [place] [address] 14 Sep, 2013 [facility] [address] [id number] [place] [address] 08 Sep, 2013 [facility] [address] [facility] [id number] [place] [address] 08 Sep, 2013 [facility] [address] [id number] [place] [address] 10 Aug, 2013 [facility] [address] [id number] [place] [address] Aug, [facility] [address] [id number] [place] [address] Jul, [facility] [address] [id number] [place] [address] Jul, [facility] [address] [id number] [place] [address] 13 Jul, 2013 [facility] [address] [id number] [place] [address] 13 Jul, 2013 [facility] [address] [id number] [place] [address] 13 Jul, 2013 [facility] [address] [id number] [place] [address] Jul, [facility] [address] [id number] [place] [address] Jul, [facility] [address] [id number] [place] [address] Jul, [facility] [address] [id number] [place] [address] 08 Jul, 2013 [facility] [address] [id number] [place] [address] 08 Jul, 2013 [facility] [address] [id number] [place] [address] Jul, 2012 [facility] [address] [id number] [place] [address] Jul, 2012 [facility] [address] [id number] [place] [address] Jul, 2012 [facility] [address] [id number] [place] [address] Jul, [facility] [address] [id number] [place] [address] Jul, [facility] [address] [id number] [place] [address] Jul, [facility] [address] [id number] [place] [address] Jul, [facility] [address] [id number] [place] [address] Jul, [facility] [address] [id number] [place] [address] Jul, [facility] [address] [id number] [place] [address] Jun, 2012 [facility] [address] [id number] [place] [address] Jun, 2012 [facility] [address] [id number] [place] [address] Jun, [facility] [address] [id number] [place] [address] 16 Jun, 2012 [facility] [address] [id number] [place] [address] 16 Jun, 2012 [facility] [address] [id number] [place] [address] 16 Jun, 2012 [facility] [address] [id number] [place] [address] 10 Jun, 2012 [facility] [address] [id number] [place] [address] 10 Jun, 2012 [facility] [address] [id number] [place] [address] Jun, [facility] [address] [id number] [place] [address] Jun, [facility] [address] [id number] [place] [address] Jun, [facility] [address] [id number] [place] [address] 26 May, 2012 [facility] [address] [id number] [place] [address] 25 May, 2012 [facility] [address] [id number] [place] [address] 19 May, 2012 [facility] [address] [id number] [place] [address] 17 May, 2012 [facility] [address] [id number] [place] [address] 11 May, 2012 [facility] [address] [id number] [place] [address] 10 May, 2012 [facility] [address] [id number] [place] [address] 09 May, 2012 [facility] [address] [id number] [place] [address] 05 May, 2012 [facility] [address] [id number] [place] [address] 30 Apr, 2013 [facility] [address] [id number] [place] [address] Apr, [facility] [address] [id number] [place] [address] Apr, [facility] [address] [id number] [place] [address] Apr, [facility] [address] [id number] [place] [address] Apr, [facility] [address] [facility] [id number] [place] [address] Mar, [facility] [address] [id number] [place] [address] Mar, [facility] [address] [id number] [place] [address] Mar, [facility] [address] [id number] [place] [address] Mar, [facility] [address] [id number] [place] [address] Mar, [facility] [address] [id number] [place] [address] Mar, [facility] [address] [id number] [place] [address] Mar, [facility] [address] [id number] [place] [address] Mar, [facility] [address] [id number] [place] [address] Feb, [facility] [address] [id number] [place] [address] Feb, [facility] [address] [id number] [place] [address] January, [facility] [address] [id number] [place] [address] January, [facility] [address] [id number] [place] [address] 10 Dec, 2012 [facility] [address] [id number] [place] [address] 09 Dec, 2012 [facility] [address] [id number] [place] [address] 23 Nov, 2012 [facility] [address] [id number] [place] [address] Nov, [facility] [address] [id number] [place] [address] Nov, [facility] [address] [id number] [place] [address] 14 Nov, 2012 [facility] [address] [id number] [place] [address] 27 Oct, 2012 [facility] [address] [id number] [place] [address] Oct, [facility] [address] [id number] [place] [address] Oct, [facility] [address] [id number] [place] [address] 26 Oct, 2012 [facility] [address] [id number] [place] [address] 16 Oct, 2012 [facility] [address] [id number] [place] [address] 14 Oct, 2012 [facility] [address] [id number] [place] [address] 08 Oct, 2012 [facility] [address] [id number] [place] [address] 07 Oct, 2012 [facility] [address] [id number] [place] [address] 03 Oct, 2012 [facility] [address] [id number] [place] [address] 30 Sep, 2012 [facility] [address] [id number] [place] [address] Sep, [facility] [address] [id number] [place] [address] Sep, [facility] [address] [id number] [place] [address] Sep, [facility] [address] [id number] [place] [address] 17 Sep, 2012 [facility] [address] [id number] [place] [address] Sep, [facility] [address] [id number] [place] [address] Sep, [facility] [address] [id number] [place] [address] Sep, [facility] [address] [id number] [place] [address] Aug, [facility] [address] [id number] [place] [address] 31 Aug, 2012 [facility] [address] [id number] [place] [address] Aug, [facility] [address] [id number] [place] [address] Aug, [facility] [address] [id number] [place] [address] Aug, [facility] [address] [id number] [place] [address] Aug, [facility] [address] [id number] [place] [address] 18 Aug, 2012 [facility] [address] [id number] [place] [address] Aug, [facility] [id number] [place] [address] Jul, [facility] [address] [id number] [place] [address] Jul, [facility] [address] [id number] [place] [address] Jul, [facility] [address] [id number] [place] [address] Jul, [facility] [address] [id number] [place] [address] Jul, [facility] [address] [id number] [place] [address] Jul, [facility] [address] [id number] [place] [address] Jun, [facility] [address] [id number] [place] [address] Jun, [facility] [address] [id number] [place] [address] Jun, [facility] [address] [id number] [place] [address] Jun, [facility] [address] [id number] [place] [address] Jun, [facility] [address] [id number] [place] [address] Jun, [facility] [address] [id number] [place] [address] 19 Jun, 2012 [facility] [address] [id number] [place] [address] Jun, [facility] [address] [id number] [place] [address] 10 Jun, 2012 [facility] [address] [id number] [place] [address] 26 May, 2012 [facility] [address] [id number] [place] [address] 24 May, 2012 [facility] [address] [id number] [place] [address] 18 May, 2012 [facility] [address] [id number] [place] [address] 30 Apr, 2012 [facility] [address] [id number] [place] [address] Apr, [facility] [id number] [place] [address] Apr, [facility] [address] [id number] [place] [address] Apr, [facility] [address] [id number] [place] [address] Apr, [facility] [address] [id number] [place] [address] Apr, [facility] [address] [id number] [place] [address] Mar, [facility] [address] [id number] [place] [address] Mar, [facility] [address] [id number] [place] [address] Mar, [facility] [address] [id number] [place] [address] Mar, [facility] [address] [id number] [place] [address] Feb, [facility] [address] [id number] [place] [address] Feb, [facility] [address] [id number] [place] [address] Feb, [facility] [address] [id number] [place] [address] Feb, [facility] [address] [id number] [place] [address] Feb, [facility] [address] [id number] [place] [address] January, [facility] [address] [id number] [place] [address] January, [facility] [address] [id number] [place] [address] January, [facility] [address] [id number] [place] [address] January, [facility] [address] [id number] [place] [address] January, [facility] [address] [id number] [place] [address] January, [facility] [address] [id number] [place] [address] Dec, [facility] [address] [id number] [place] [address] Dec, [facility] [address] [id number] [place] [address] Dec, [facility] [address] [id number] [place] [address] Dec, [facility] [address] [id number] [place] [address] Dec, [facility] [address] [id number] [place] [address] Nov, [facility] [address] [id number] [place] [address] Nov, [facility] [address] [id number] [place] [address] Nov, [facility] [address] [id number] [place] [address] Nov, [facility] [address] [id number] [place] [address] Oct, [facility] [address] [id number] [place] [address] Oct, [facility] [address] [id number] [place] [address] 24 Oct, 2011 [facility] [address] [id number] [place] [address] 13 Oct, 2011 [facility] [address] [id number] [place] [address] Oct, [facility] [address] [id number] [place] [address] Sep, [facility] [address] [id number] [place] [address] Sep, [facility] [address] [id number] [place] [address] Sep, [facility] [address] [id number] [place] [address] Sep, [facility] [address] [id number] [place] [address] Sep, [facility] [address] [id number] [place] [address] Sep, [facility] [address] [id number] [place] [address] Aug, [facility] [address] [id number] [place] [address] Aug, [facility] [address] [id number] [place] [address] Aug, [facility] [id number] [place] [address] Jul, [facility] [address] [id number] [place] [address] Jul, [facility] [address] [id number] [place] [address] Jul, [facility] [address] [id number] [place] [address] Jul, [facility] [address] [id number] [place] [address] Jun, [facility] [address] [id number] [place] [address] Jun, [facility] [address] [id number] [place] [address] Jun, [facility] [address] [id number] [place] [address] 10 Jun, 2011 [facility] [address] [id number] [place] [address] 10 Jun, 2011 [facility] [address] [id number] [place] [address] 10 Jun, 2011 [facility] [address] [id number] [place] [address] 11 Mar, 2011 [facility] [address] [id number] [place] [address] 18 Dec, 2010 [facility] [address] [id number] [place] [address] 11 Dec, 2010 [facility] [address] [id number] [place] [address] 18 Nov, 2010 [facility] [address] [id number] [place] [address] 16 Nov, 2010 [facility] [address] [id number] [place] [address] 10 Sep, 2010 [facility] [address] [id number] [place] [address] 31 Aug, 2010 [facility] [address] [id number] [place] [address] 29 Aug, 2010 [facility] [address] [id number] [place] [address] 29 Aug, 2010 [facility] [address] [id number] [place] [address] 29 Aug, 2010 [facility] [address] [id number] [place] [address] 27 Aug, 2010 [facility] [address] [id number] [place] [address] 14 Aug, 2010 [facility] [address] [id number] [place] [address] 08 Aug, 2010 [facility] [address] [id number] [place] [address] 08 Aug, 2010 [facility] [address] [id number] [place] [address] 07 Aug, 2010 [facility] [address] [id number] [place] [address] Aug, [facility] [address] [id number] [place] [address] Aug, [facility] [address] [id number] [place] [address] Aug, [facility] [address] [id number] [place] [address] Jul, [facility] [address] [id number] [place] [address] Jul, [facility] [address] [id number] [place] [address] Jul, [facility] [address] [id number] [place] [address] Jul, [facility] [address] [id number] [place] [address] Jul, [facility] [address] [id number] [place] [address] Jul, [facility] [address] [id number] [place] [address] Jun, [facility] [address] [id number] [place] [address] Jun, [facility] [address] [id number] [place] [address] Jun, [facility] [address] [id number] [place] [address] Jun, [facility] [address] [id number] [place] [address] 16 Apr, 2010 [facility] [address] [id number] [place] [address] Mar, [facility] [address] [id number] [place] [address] Feb, [facility] [address] [id number] [place] [address] January, [facility] [address] [id number] [place] [address] Dec, [facility] [address] [id number] [place] [address] Nov, [facility] [address] [id number] [place] [address] Aug, [facility] [address] [id number] [place] [address] Aug, [facility] [address] [id number] [place] [address] Aug, [facility] [address] [id number] [place] [address] Jul, [facility] [address] [id number] [place] [address] Jul, [facility] [address] [id number] [place] [address] Jul, [facility] [address] [id number] [place] [address] Jun, [facility] [address] [id number] [place] [address] Jun, [facility] [address] [id number] [place] [address] Jun, [facility] [address] [id number] [place] [address] Jun, [facility] [address] [id number] [place] [address] Jun, [facility] [address] [id number] [place] [address] Jun, [facility] [address] [id number] [place] [address] Apr, [facility] [address] [id number] [place] [address] Apr, [facility] [address] [facility] [id number] [place] [address] Feb, [facility] [address] [facility] [id number] [place] [address] January, [facility] [address] [facility] [id number] [place] [address] Dec, IMMUNIZATIONS No Known Immunizations SOCIAL HISTORY [...] Medical History skin cancer-basal cell R zoroastrianism (removed ) Medical History Arthritis Medical History [...] 2009 Surgical History colonoscopy 2009 ([facility]), 2013 ([place] ) Surgical History heart cath: CAD w/ [...] History inability to urinate 09/16/15 Hospitalization History [facility] ea [facility]ly 1999's Hospitalization History hyperkalemia 10/2017 Hospitalization History fluid in lung
--- OUTSIDE RECORDS SUMMARY | 2020-03-01 16:50 | XMS REPORT ---
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 Name Role Phone NANCY VALDES Unavailable PROBLEMS Type Condition ICD9-CM Code [id number] Code Onset Dates Condition S tatus SNOMED Code Problem DM neuro manif type II E11.49 Active 99486700 Problem Chronic pain G89.29 Active 7121500 1 Problem Diabetes E11.9 Active 67398256 Problem Reactive airway disease J45.909 Active 621906004267 Problem Leukocytosis D72.829 Active 9237905 06 Problem Insomnia, unspecified type G47.00 Act sharon 807825232 Problem Bipolar I disorder, most recent episode (or curr ent) mixed, moderate F31.62 Active 60050192 Problem Primary osteoarthritis of right knee M17.11 Active 252941028698861 Problem Cough R05 Active 14431355 Problem Pure hypercholesterolemia E78.00 Acti ve 029020657 Problem Dysuria R30.0 Active 05569599 Problem Benign prostatic hyperplasia with lower urinary tract symptoms, unspecified morphology N40.1 Active 37097 6007 Problem Eustachian tube dysfunction, unspecified laterality H69.80 Active 96776296 Problem Polyneuropathy associated with underlying disease G63 Active 402464728 Problem Diabetic polyneuropathy associated with type 2 d iabetes mellitus E11.42 Active 51975871 Problem Anemia of chronic illness D63.8 Acti ve 206846696 Problem Chronic lymphocytic leukemia C91.10 A ctive 25727525 Problem Bilateral primary osteoarthritis of knee M17.0 Active 997071259 Problem 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 Active 101685999 Problem Eye exam abnormal R93.8 Active 16 5434064 Problem Retinal edema H35.81 Active 479070 6 Problem Lymphocytosis D72.820 Active 265756 09 Problem Bipolar disorder, in partial remission, most rec ent episode depressed F31.75 Active 84787806 Problem Hypokalemia E87.6 Active 37898388 Problem Falling R29.6 Active 053893745 Problem Pressure ulcer of other site, stage 3 L89.893 Active 409075544 Problem Other iron deficiency anemia D50.8 A ctive 29479686 Problem Mild cognitive impairment G31.84 Acti ve 355661989 Problem Skin cancer C44.90 Active 26788546 7 Problem penitentiary (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 Z79.4 Active 389212018 Problem Morbid obesity E66.01 Active 03677 6002 Problem Mood disorder F39 Active 302162 05 Problem Anxiety F41.9 Active 69081423 Problem Essential hypertension I10 Active 02381032 Problem Bipolar disorder F31.9 Active 137 58311 Problem Chronic diastolic (congestive) heart failure I50.3 2 Active 953804715 Problem Psychophysiological insomnia F51.04 A ctive 253073930 Problem Type 2 diabetes mellitus with diabetic neuropathy, uns pecified E11.40 Active 70171805 ALLERGIES No Information ENCOUNTERS Encounter Location Date Diagnosis [place] [address] [address] 06 Dec, 2019 [place] [address] [address] Nov, [place] [address] [address] Nov, [place] [address] [address] Nov, [place] [address] [address] Oct, [facility] [address] [address] Oct, [place] [address] [address] Oct, Bipolar disorder, in partial remission, most recent episode depressed F31.75 and Mild cognitive impairment G31.84 [place] [address] [address] 04 Oct, 2019 Mood disorder F39 [place] [address] [address] Sep, [facility] [address] [id number] [place] [address] Sep, Mood disorder F39 [facility] [address] [place] [id number] [place] [address] Sep, Bipolar disorder, in partial remission, most recent episode depressed F31.75 and Mild cognitive impairment G31.84 [facility] [address] [place] [id number] [place] [address] Sep, Mood disorder F39 [facility] [address] [place] [id number] [place] [address] Sep, [facility] [address] [place] [id number] [place] [address] Sep, Mood disorder F39 [facility] [address] [place] [id number] [place] [address] Sep, [facility] [address] [place] [address] [id number] [place] [address] Aug, Mood disorder F39 [facility] [address] [place] [id number] [place] [address] Aug, [facility] [address] [place] [address] [id number] [place] [address] Aug, [facility] [address] [place] [id number] [place] [address] Aug, [facility] [address] [place] [id number] [place] [address] Aug, [facility] [address] [id number] [place] [address] Aug, [facility] [address] [place] [address] [id number] [place] [address] Aug, [facility] [address] [id number] [place] [address] Aug, [facility] [address] [place] [id number] [place] [address] Aug, Essential hypertension I10 [facility] [address] [id number] [place] [address] Aug, Bipolar disorder, in partial remission, most recent episode depressed F31.75 and Mild cognitive impairment G31.84 [facility] [address] [place] [id number] [place] [address] Aug, Mood disorder F39 [facility] [address] [place] [id number] [place] [address] Aug, [facility] [address] [place] [id number] [place] [address] Aug, Bipolar disorder, in partial remission, most recent episode depressed F31.75 and Mild cognitive impairment G31.84 [facility] [address] [place] [id number] [place] [address] Jul, Bipolar disorder, in partial remission, most recent episode depressed F31.75 and Mild cognitive impairment G31.84 [facility] [address] [place] [id number] [place] [address] Jul, Psychophysiological insomnia F51.04 [facility] [address] [place] [id number] [place] [address] Jul, [facility] [address] [place] [id number] [place] [address] Jul, [facility] [address] [place] [id number] [place] [address] Jul, [facility] [address] [place] [id number] [place] [address] Jul, [facility] [address] [place] [id number] [place] [address] Jul, [facility] [address] [place] [id number] [place] [address] Jul, [facility] [address] [place] [id number] [place] [address] Jul, Bipolar disorder, in partial remission, most recent episode depressed F31.75 and Mild cognitive impairment G31.84 [place] [address] [address] Jul, Chronic pain G89.29 ; Diabetes E11.9 ; E ssential hypertension I10 ; Ill feeling R68.89 ; Local infection of the skin and subcutaneous tissue, unspecified L08.9 and Other injury of unspecified body region, initial encounter T14.8XXA [place] [address] [address] Jun, Bipolar disorder, in partial remission, most recent episode depressed F31.75 and Mild cognitive impairment G31.84 [place] [address] [address] Jun, [place] [address] [address] Jun, Bipolar disorder, in partial remission, most recent episode depressed F31.75 and Mild cognitive impairment G31.84 [place] [address] [address] Jun, Psychophysiological insomnia F51.[address] [address] Jun, Psychophysiological insomnia F51.04 ; Ch ronic pain G89.29 ; Bipolar I disorder, most recent episode (or current) mixed, moderate F31.62 ; 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 ; Polyneuropathy associated with underlying disease G63 ; Type 2 diabetes mellitus with diabetic neuropathy, unspecified E11.40 ; emt intermediate (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 Z79.4 and Hyperglycemia R73.9 [place] [address] [address] Jun, Bipolar disorder, in partial remission, most recent episode depressed F31.75 and Mild cognitive impairment G31.84 [place] [address] [address] Jun, [place] [address] [address] Jun, Bipolar disorder F31.9 [facility] [address] [address] May, Bipolar disorder, in partial remission, most recent episode depressed F31.75 and Mild cognitive impairment G31.84 [facility] [address] [address] May, [facility] [address] [address] Apr, Chronic pain G89.29 and Bipolar disorder F31.9 [facility] [address] [address] Mar, Bipolar disorder F31.9 and Chronic pain G89.29 [facility] [address] [address] Feb, Bipolar disorder F31.9 [facility] [address] [address] Feb, Cellulitis of right upper extremity L03. 113 and Skin abrasion T14.8XXA [facility] [address] [address] Feb, Bipolar disorder, in partial remission, most recent episode depressed F31.75 and Mild cognitive impairment G31.84 [facility] [address] [address] Feb, Chronic pain G89.29 [facility] [address] [address] Feb, Bipolar disorder, in partial remission, most recent episode depressed F31.75 and Mild cognitive impairment G31.84 [facility] [address] [address] January, Bipolar disorder, in partial remission, most recent episode depressed F31.75 and Mild cognitive impairment G31.84 [facility] [address] [address] January, Chronic pain G89.29 and Bipolar disorder F31.9 [place] [address] [place] [id number] [place] [address] January, Bipolar disorder, in partial remission, most recent episode depressed F31.75 and Mild cognitive impairment G31.84 [facility] [address] [place] [id number] [place] [address] Dec, [facility] [address] [address] Dec, Chronic pain G89.29 and Bipolar disorder F31.9 [place] [address] [address] Dec, Edema of both lower extremities R60.0 [place] [address] [address] Dec, Bipolar disorder F31.9 [place] [address] [address] Dec, Bipolar disorder, in partial remission, most recent episode depressed F31.75 and Mild cognitive impairment G31.84 [place] [address] [place] [id number] [place] [address] Nov, [place] [address] [address] Nov, Chronic pain G89.29 [place] [address] [address] Nov, Bipolar disorder, in partial remission, most recent episode depressed F31.75 and Mild cognitive impairment G31.84 [place] [address] [address] Nov, Bipolar disorder F31.9 [facility] [address] [address] 04 Nov, 2018 Encounter for Medicare annual [...] unspecified morphology N40.1 and Essential hypertension I10 [address] [address] Oct, Chronic pain G89.[address] [address] Oct, Diabetes E11.[address] [address] Oct, Bipolar I disorder, most recent episode (or current) mixed, moderate F31.62 and Mild cognitive impairment G31.[address] [address] Oct, Bipolar I disorder, most recent episode (or current) mixed, moderate F31.62 and Mild cognitive impairment G31.[address] [address] Sep, Bipolar I disorder, most recent episode (or current) mixed, moderate F31.62 and Mild cognitive impairment G31.[address] [address] Sep, [address] [address] Sep, Diabetes E11.9 ; Hypoxia R09.02 ; Hyperg lycemia R73.9 ; Therapeutic drug monitoring Z51.81 ; BMI 50.0-59.9, adult Z68.43 and Skin cancer C44.[address] [address] Sep, Chronic pain G89.[address] [address] Sep, Bipolar I disorder, most recent episode (or current) mixed, moderate F31.62 [facility] [address] [address] Sep, [facility] [address] [address] Sep, [facility] [address] [address] Aug, Chronic pain G89.29 [facility] [address] [address] Aug, Bipolar I disorder, most recent episode (or current) mixed, moderate F31.62 [facility] [address] [address] Aug, Bipolar I disorder, most recent episode (or current) mixed, moderate F31.62 and Mild cognitive impairment G31.84 [facility] [address] [address] Jul, [facility] [address] [address] Jul, Chronic pain G89.29 [facility] [address] [address] Jul, Bipolar I disorder, most recent episode (or current) mixed, moderate F31.62 and Mild cognitive impairment G31.84 [facility] [address] [address] Jul, Bipolar I disorder, most recent episode (or current) mixed, moderate F31.62 and MCI (mild cognitive impairment) G31.84 [facility] [address] [address] Jul, [facility] [address] [address] Jul, [facility] [address] [address] Jul, Bipolar I disorder, most recent episode (or current) mixed, moderate F31.62 [facility] [address] [place] [address] Jul, Chronic pain G89.29 [facility] [address] [address] Jun, Bipolar I disorder, most recent episode (or current) mixed, moderate F31.62 [facility] [address] [place] [id number] [place] [address] Jun, Pre-procedure lab exam Z01.812 [place] [address] [place] [id number] [place] [address] Jun, [facility] [address] [facility] [address] Jun, [place] [address] [place] [id number] [place] [address] Jun, [place] [address] [address] Jun, Forgetfulness R68.89 ; Pre-syncope R55 ; Localized edema R60.0 ; Other iron deficiency anemia D50.8 and BMI 50.0-59.9, adult Z68.43 [facility] [address] [address] Jun, Chronic pain G89.29 [facility] [address] [address] Jun, Chronic pain G89.29 [facility] [address] [address] Jun, Bipolar I disorder, most recent episode (or current) mixed, moderate F31.62 [facility] [address] [address] May, Chronic pain G89.29 [facility] [address] [address] Apr, [facility] [address] [address] Apr, Chronic pain G89.29 [place] [address] [address] Apr, Primary osteoarthritis of right knee M17 .11 [place] [address] [address] Mar, [place] [address] [address] Mar, BMI 50.0-59.9, adult Z68.43 and Bipolar disorder, in partial remission, most recent episode depressed F31.75 [place] [address] [address] Mar, Diabetes E11.9 ; Pure hypercholesterolem ia E78.00 ; Essential hypertension I10 ; Nausea with vomiting, unspecified R11.2 and Headache, unspecified headache type R51 [place] [address] [address] Mar, Bipolar I disorder, most recent episode (or current) mixed, moderate F31.62 [place] [address] [address] Mar, Bipolar I disorder, most recent episode (or current) mixed, moderate F31.62 [place] [address] [address] Mar, Chronic pain G89.29 [place] [address] [address] Mar, Bipolar I disorder, most recent episode (or current) mixed, moderate F31.62 [place] [address] [address] Feb, Bipolar I disorder, most recent episode (or current) mixed, moderate F31.62 [place] [address] [address] 14 Feb, 2018 Chronic pain G89.29 [place] [address] [address] 06 Feb, 2018 Decubitus ulcer of right foot, stage 3 L 89.893 and BMI 50.0-59.9, adult Z68.43 [place] [address] [address] Feb, Bipolar I disorder, most recent episode (or current) mixed, moderate F31.62 [place] [address] [address] Feb, [place] [address] [address] January, [place] [address] [address] January, Chronic pain G89.29 [place] [address] [address] January, Bipolar I disorder, most recent episode (or current) mixed, moderate F31.62 [place] [address] [address] January, Bipolar I disorder, most recent episode (or current) mixed, moderate F31.62 [place] [address] [address] Dec, Bipolar I disorder, most recent episode (or current) mixed, moderate F31.62 and BMI 50.0-59.9, adult Z68.43 [place] [address] [address] Dec, Bipolar I disorder, most recent episode (or current) mixed, moderate F31.62 [place] [address] [address] Dec, Chronic pain G89.29 [place] [address] [address] 18 Dec, 2017 DM neuro manif type II E11.49 ; Right fl ank pain R10.9 ; penitentiary 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 Z79.891 ; Encounter for medication monitoring Z51.81 and BMI 50.0-59.9, adult Z68.43 [place] [address] [address] Dec, Bipolar I disorder, most recent episode (or current) mixed, moderate F31.62 [facility] [address] [address] Nov, Bipolar I disorder, most recent episode (or current) mixed, moderate F31.62 [place] [address] [address] Nov, Chronic pain G89.29 [place] [address] [address] Nov, Bipolar I disorder, most recent episode (or current) mixed, moderate F31.62 [place] [address] [address] Nov, Hypokalemia E87.6 [place] [address] [address] Nov, Bipolar I disorder, most recent episode (or current) mixed, moderate F31.62 [place] [address] [address] Oct, Chronic pain G89.29 [place] [address] [address] Oct, BMI 50.0-59.9, adult Z68.43 and Bipolar I disorder, most recent episode (or current) mixed, moderate F31.62 [place] [address] [address] Oct, Bipolar I disorder, most recent episode (or current) mixed, moderate F31.62 [place] [address] [address] Oct, [place] [address] [address] Oct, Hypokalemia E87.6 [place] [address] [address] Oct, DM neuro manif type II E11.49 [place] [address] [address] Oct, Bipolar I disorder, most recent episode (or current) mixed, moderate F31.62 [place] [address] [address] 20 Oct, 2017 Bipolar I disorder, most recent episode (or current) mixed, moderate F31.62 [place] [address] [address] 14 Oct, 2017 Hyperkalemia E87.5 ; Falling R29.6 ; BMI 50.0-59.9, adult Z68.43 and Acute left ankle pain M25.[address] [address] 08 Oct, 2017 DM neuro manif type II E11.[address] [address] Oct, [address] [address] Sep, Chronic pain G89.[address] [address] Sep, [address] [address] Sep, Bilateral primary osteoarthritis of knee M17.[address] [address] Sep, Generalized edema R60.[address] [address] Sep, Bipolar I disorder, most recent episode (or current) mixed, moderate F31.62 [place] [address] [address] 15 Sep, 2017 Hypoxia R09.02 ; Other hypervolemia E87. 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 ; Anemia of chronic illness D63.8 and BMI 50.0-59.9, adult Z68.43 [place] [address] [address] Sep, [place] [address] [address] Sep, Bipolar I disorder, most recent episode (or current) mixed, moderate F31.62 [place] [address] [address] Aug, Chronic pain G89.29 [place] [address] [address] Aug, Generalized edema R60.1 [place] [address] [address] Aug, [place] [address] [address] Aug, [place] [address] [address] Aug, Bipolar I disorder, most recent episode (or current) mixed, moderate F31.62 [place] [address] [address] Aug, Bipolar I disorder, most recent episode (or current) mixed, moderate F31.62 [place] [address] [address] 04 Aug, 2017 Chronic pain G89.29 [place] [address] [address] Jul, Bipolar I disorder, most recent episode (or current) mixed, moderate F31.62 [place] [address] [address] Jul, Bipolar I disorder, most recent episode (or current) mixed, moderate F31.62 and BMI 60.0-69.9, adult Z68.44 [facility] [address] [address] 16 Jul, 2017 Bipolar I disorder, most recent episode (or current) mixed, moderate F31.62 [facility] [address] [address] Jul, Chronic pain G89.29 [facility] [address] [address] Jul, Bipolar I disorder, most recent episode (or current) mixed, moderate F31.62 [facility] [address] [address] Jun, Polyneuropathy associated with underlyin g disease G63 and Diabetes E11.9 [facility] [address] [address] Jun, Bipolar I disorder, most recent episode (or current) mixed, moderate F31.62 [facility] [address] [address] Jun, Chronic pain G89.29 [facility] [address] [address] 27 May, 2017 Bipolar I disorder, most recent episode (or current) mixed, moderate F31.62 [facility] [address] [address] 21 May, 2017 Bipolar I disorder, most recent episode (or current) mixed, moderate F31.62 [facility] [address] [address] 20 May, 2017 Diabetic polyneuropathy associated with type 2 diabetes mellitus E11.42 [facility] [address] [address] 18 May, 2017 Bipolar I disorder, most recent episode (or current) mixed, moderate F31.62 [facility] [address] [address] 13 May, 2017 Bipolar I disorder, most recent episode (or current) mixed, moderate F31.62 [facility] [address] [address] May, Chronic pain G89.29 [facility] [address] [place] [address] Apr, Bipolar I disorder, most recent episode (or current) mixed, moderate F31.62 [facility] [address] [address] Apr, [place] [address] [place] [address] Apr, Chronic pain G89.29 and DM neuro manif t ype II E11.49 [place] [address] [address] Apr, [place] [address] [address] Apr, Bipolar I disorder, most recent episode (or current) mixed, moderate F31.62 [place] [address] [address] Apr, Chronic pain G89.29 [place] [address] [address] Apr, Iliotibial band syndrome, left M76.32 [place] [address] [address] Apr, Bipolar I disorder, most recent episode (or current) mixed, moderate F31.62 [place] [address] [address] Mar, Bipolar I disorder, most recent episode (or current) mixed, moderate F31.62 [place] [address] [address] Mar, Bipolar I disorder, most recent episode (or current) mixed, moderate F31.62 [place] [address] [address] Mar, [facility] [address] [address] Mar, Bipolar I disorder, most recent episode (or current) mixed, moderate F31.62 [facility] [address] [address] Mar, Chronic pain G89.29 [facility] [address] [address] Mar, Bipolar I disorder, most recent episode (or current) mixed, moderate F31.62 [facility] [facility] [address] [address] Mar, Bipolar I disorder, most recent episode (or current) mixed, moderate F31.62 [place] [address] [address] Mar, Acute pain of left knee M25.562 ; Left h ip pain M25.552 ; Generalized edema R60.1 and Tongue swelling R22.0 [place] [address] [address] Mar, [facility] [address] [address] Feb, Chronic pain G89.29 [facility] [address] [address] Feb, Diabetes E11.9 [place] [address] [address] January, Chronic pain G89.29 [facility] [address] [address] January, [facility] [address] [address] January, Bipolar I disorder, most recent episode (or current) mixed, moderate F31.62 [facility] [address] [address] Dec, Bipolar I disorder, most recent episode (or current) mixed, moderate F31.62 [place] [address] [address] Dec, Chronic pain G89.29 [facility] [address] [address] Dec, Bipolar I disorder, most recent episode (or current) mixed, moderate F31.62 [facility] [address] [address] Dec, Diabetes E11.9 ; Essential hypertension I10 ; Chronic pain G89.29 and Morbid obesity E66.01 [facility] [address] [address] Dec, [facility] [address] [address] Dec, Bipolar I disorder, most recent episode (or current) mixed, moderate F31.62 [place] [address] [address] Dec, Bipolar I disorder, most recent episode (or current) mixed, moderate F31.62 [facility] [address] [address] Nov, Chronic pain G89.29 [facility] [address] [address] Nov, Bipolar I disorder, most recent episode (or current) mixed, moderate F31.62 [facility] [address] [address] Nov, [facility] [address] [address] Nov, Bipolar I disorder, most recent episode (or current) mixed, moderate F31.62 [facility] [address] [address] Nov, Bipolar I disorder, most recent episode (or current) mixed, moderate F31.62 [facility] [address] [address] Nov, [place] [id number] [address] Nov, [facility] [address] [address] Nov, [facility] [address] [address] Oct, Chronic pain G89.29 [facility] [address] [address] Oct, Bipolar I disorder, most recent episode (or current) mixed, moderate F31.62 [facility] [address] [address] Oct, [facility] [address] [address] Oct, Chronic pain G89.29 ; Diabetes E11.9 ; A nxiety F41.9 and 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 [facility] [address] [address] Oct, [facility] [address] [address] Oct, Diabetes E11.9 [facility] [address] [address] Oct, Bipolar I disorder, most recent episode (or current) mixed, moderate F31.62 [facility] [address] [address] Sep, Chronic pain G89.29 [facility] [address] [address] Sep, Chronic pain G89.29 [facility] [address] [address] Aug, Chronic pain G89.29 [facility] [address] [address] Jul, [facility] [address] [address] Jul, Diabetes E11.9 [place] [address] [address] Jul, Chronic pain G89.29 [place] [address] [place] [id number] Jul, Bipolar I disorder, most recent episode (or current) mixed, moderate F31.62 [place] [address] [address] Jun, Bipolar I disorder, most recent episode (or current) mixed, moderate F31.62 [place] [address] [address] Jun, [place] [address] [address] Jun, Bipolar I disorder, most recent episode (or current) mixed, moderate F31.62 [place] [address] [address] May, Insomnia, unspecified type G47.00 [place] [address] [address] May, Bipolar I disorder, most recent episode (or current) mixed, moderate F31.62 [place] [address] [address] 14 May, 2016 [place] [address] [address] 08 May, 2016 Bipolar I disorder, most recent episode (or current) mixed, moderate F31.62 [place] [address] [address] 06 May, 2016 Diabetes E11.9 and Essential hypertensio n I10 [place] [address] [address] Apr, Chronic pain G89.29 [place] [address] [address] Apr, Bipolar I disorder, most recent episode (or current) mixed, moderate F31.62 [place] [address] [address] Apr, [place] [address] [address] Apr, [place] [address] [address] Mar, Chronic pain G89.29 ; Headache, unspecif ied headache type R51 ; Neuropathy G62.9 ; Pain of right hip joint M25.551 and Essential hypertension I10 [place] [address] [address] Mar, Chronic pain G89.29 [place] [address] [address] Mar, Bipolar I disorder, most recent episode (or current) mixed, moderate F31.62 [place] [address] [address] Feb, Bipolar I disorder, most recent episode (or current) mixed, moderate F31.62 and Insomnia, unspecified type G47.00 [place] [address] [address] Feb, Chronic pain G89.29 [place] [address] [address] Feb, Bipolar I disorder, most recent episode (or current) mixed, moderate F31.62 [place] [address] [address] January, Bipolar I disorder, most recent episode (or current) mixed, moderate F31.62 [place] [address] [address] January, Chronic pain G89.29 [place] [address] [address] January, Chronic pain G89.29 and Essential hypert ension I10 [facility] [address] [address] January, Bipolar I disorder, most recent episode (or current) mixed, moderate F31.62 [facility] [address] [address] Dec, [facility] [address] [address] Dec, [facility] [address] [address] Dec, [facility] [address] [address] Dec, [facility] [address] [address] Nov, Reactive airway disease J45.909 [place] [address] [address] Nov, [facility] [address] [address] Nov, [facility] [address] [address] Nov, [facility] [address] [address] Nov, [place] [address] [address] Nov, Onychomycosis B35.1 ; Hammertoe M20.40 ; [place] or callus L84 and DM neuro manif type II E11.49 [place] [address] [address] Nov, Chronic pain G89.29 ; Leukocytosis D72.8 29 and Diabetes E11.9 [facility] [address] [address] Nov, [facility] [address] [address] Oct, Bronchitis J40 [place] [address] [address] Oct, [place] [address] [address] Oct, [place] [address] [address] Oct, Mastoiditis, unspecified laterality H70. 90 and Type 2 diabetes mellitus with complication E11.8 [place] [address] [address] Sep, [address] [address] Sep, Dysuria R30.0 ; Cough R05 ; Benign prost atic hyperplasia with lower urinary tract symptoms, unspecified morphology N40.1 ; Hypokalemia E87.6 and Eustachian tube dysfunction, unspecified laterality H69.80 [place] [address] [address] Sep, Moderate mixed bipolar I disorder F31.[address] [address] Sep, Hypokalemia E87.[address] [address] Sep, [place] [address] [address] Sep, Upper respiratory tract infection, unspe cified type J06.9 [place] [address] [address] Aug, [address] [address] Aug, Dysuria R30.0 [place] [address] [address] Aug, [address] [address] Jul, [facility] [address] [place] [id number] [place] [address] Jul, [facility] [address] [place] [id number] [place] [address] Jul, [facility] [address] [place] [id number] [place] [address] Jul, [facility] [address] [address] Jun, [facility] [address] [place] [id number] [place] [address] Jun, [facility] [address] [place] [id number] [place] [address] Jun, [facility] [address] [place] [id number] [place] [address] May, [facility] [address] [place] [id number] [place] [address] May, Bipolar I disorder, most recent episode (or current) mixed, moderate 296.62 [facility] [address] [place] [id number] [place] [address] May, [facility] [address] [place] [id number] [place] [address] May, Bipolar I disorder, most recent episode (or current) mixed, moderate 296.62 and Major depressive disorder, recurrent episode, severe, specified as with psychotic behavior 296.34 [facility] [address] [place] [address] [id number] [place] [address] May, Bipolar I disorder, most recent episode (or current) mixed, moderate 296.62 [facility] [address] [place] [address] [id number] [place] [address] May, [facility] [address] [address] Apr, [facility] [address] [address] Apr, [facility] [address] [place] [address] [id number] [place] [address] Apr, Unspecified disorder of kidney and urete r 593.9 and Diabetes mellitus type 2, uncontrolled 250.02 [facility] [address] [place] [id number] [place] [address] Apr, [facility] [address] [address] Apr, [facility] [address] [address] Apr, [facility] [address] [address] Apr, [facility] [address] [address] Apr, Diabetes mellitus type II, uncontrolled 250.02 [facility] [address] [address] Apr, [facility] [address] [address] Mar, [facility] [address] [address] Mar, [facility] [address] [address] Mar, [facility] [address] [address] Mar, Major depressive disorder, recurrent epi sode, severe, specified as with psychotic behavior 296.34 and Bipolar I disorder, most recent episode (or current) mixed, moderate 296.62 [facility] [address] [address] Mar, Diabetes 250.00 ; Anuria 788.5 ; Nausea and vomiting 787.01 and Diarrhea 787.91 [facility] [address] [address] Mar, Diabetes 250.00 [facility] [address] [place] [id number] [place] [address] Mar, [facility] [address] [address] Mar, Diabetes 250.00 [facility] [address] [address] Mar, [facility] [address] [address] Mar, [facility] [address] [address] Mar, [facility] [address] [address] Mar, [facility] [address] [address] Mar, Bipolar I disorder, most recent episode (or current) mixed, moderate 296.62 and Major depressive disorder, recurrent episode, severe, specified as with psychotic behavior 296.34 [facility] [address] [place] [address] Mar, Magnesium deficiency 275.2 ; Hypokalemia 276.8 ; Nausea & vomiting 787.01 and Diabetes mellitus type 2, uncontrolled 250.02 [facility] [address] [address] Feb, [address] [address] Feb, Bipolar I disorder, most recent episode (or current) mixed, moderate 296.62 [facility] [address] [address] Feb, Nausea and vomiting 787.01 ; Left elbow pain 719.42 ; Anuria 788.5 and Diabetes 250.00 [facility] [address] [address] Feb, [facility] [address] [place] [address] Feb, Hypopotassemia 276.8 and Hypokalemia 276 .8 [facility] [address] [address] Feb, Hypopotassemia 276.8 and Hypokalemia 276 .8 [facility] [address] [address] Feb, Seborrheic keratoses 702.19 [facility] [address] [address] Feb, Hypopotassemia 276.8 and Low magnesium l evels 275.2 [facility] [address] [address] January, [facility] [address] [address] January, [facility] [address] [address] January, [facility] [address] [address] January, Scalp lesion 709.9 [facility] [address] [address] January, [facility] [address] [address] Dec, Tear of medial cartilage or meniscus of knee, current 836.0 and 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 [facility] [address] [address] Dec, [facility] [address] [address] Dec, [facility] [address] [address] Dec, Squamous cell carcinoma, 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 42 [facility] [address] [address] 14 Dec, 2014 [facility] [address] [address] 13 Dec, 2014 [facility] [address] [id number] [place] [address] Nov, [facility] [address] [id number] [place] [address] Nov, [facility] [address] [id number] [place] [address] Nov, [facility] [address] [id number] [place] [address] Nov, [facility] [address] [id number] [place] [address] Nov, [facility] [address] [id number] [place] [address] Nov, [facility] [address] [id number] [place] [address] Nov, [facility] [address] [id number] [place] [address] Nov, [facility] [address] [id number] [place] [address] Nov, [facility] [address] [id number] [place] [address] Nov, [facility] [address] [id number] [place] [address] Nov, [facility] [address] [id number] [place] [address] Nov, [facility] [address] [id number] [place] [address] Oct, 2014 [facility] [address] [id number] [place] [address] Oct, 2014 [facility] [address] [id number] [place] [address] Oct, 2014 [facility] [address] [id number] [place] [address] Oct, 2014 [facility] [address] [id number] [place] [address] Oct, [facility] [address] [id number] [place] [address] Oct, [facility] [address] [id number] [place] [address] Oct, [facility] [address] [id number] [place] [address] Oct, [facility] [address] [id number] [place] [address] Oct, [facility] [address] [id number] [place] [address] Sep, [facility] [address] [id number] [place] [address] Sep, [facility] [address] [id number] [place] [address] Sep, [facility] [address] [id number] [place] [address] Sep, [facility] [address] [id number] [place] [address] Sep, [facility] [address] [id number] [place] [address] Sep, [facility] [address] [id number] [place] [address] Sep, [facility] [address] [id number] [place] [address] Sep, [facility] [address] [id number] [place] [address] Sep, [facility] [address] [id number] [place] [address] Sep, [facility] [address] [id number] [place] [address] Sep, [facility] [address] [id number] [place] [address] Sep, [facility] [address] [facility] [id number] [place] [address] Sep, [facility] [address] [facility] [id number] [place] [address] Sep, [facility] [address] [id number] [place] [address] Sep, [facility] [address] [id number] [place] [address] Sep, [facility] [address] [facility] [id number] [place] [address] Aug, [facility] [address] [id number] [place] [address] Aug, [facility] [address] [id number] [place] [address] Aug, [facility] [address] [id number] [place] [address] Aug, [facility] [address] [facility] [id number] [place] [address] Aug, [facility] [address] [id number] [place] [address] Aug, [facility] [address] [id number] [place] [address] Aug, [facility] [address] [id number] [place] [address] Aug, [facility] [address] [facility] [id number] [place] [address] Aug, [facility] [address] [id number] [place] [address] Aug, [facility] [address] [id number] [place] [address] Aug, [facility] [address] [place] [id number] Aug, [facility] [address] [id number] [place] [address] 10 Aug, 2014 [facility] [address] [facility] [id number] [place] [address] Aug, [facility] [address] [id number] [place] [address] Aug, [facility] [address] [id number] [place] [address] Aug, [facility] [address] [id number] [place] [address] Aug, [facility] [address] [id number] [place] [address] Aug, [facility] [address] [id number] [place] [address] Aug, [facility] [address] [id number] [place] [address] 08 Aug, 2014 [facility] [address] [id number] [place] [address] Aug, [facility] [address] [id number] [place] [address] Aug, [facility] [address] [id number] [place] [address] Aug, [facility] [address] [id number] [place] [address] Aug, [facility] [address] [id number] [place] [address] Aug, [facility] [address] [id number] [place] [address] Aug, [facility] [address] [id number] [place] [address] Aug, [facility] [address] [id number] [place] [address] Aug, [facility] [address] [id number] [place] [address] Aug, [facility] [address] [id number] [place] [address] Aug, [facility] [address] [id number] [place] [address] Jul, [facility] [address] [id number] [place] [address] Jul, [facility] [address] [id number] [place] [address] Jul, [facility] [address] [id number] [place] [address] Jul, [facility] [address] [id number] [place] [address] Jul, [facility] [address] [id number] [place] [address] Jul, [facility] [address] [id number] [place] [address] Jul, [facility] [facility] [address] [id number] [place] [address] Jul, [facility] [place] [facility] [address] [id number] [place] [address] Jul, [facility] [place] [facility] [address] [id number] [place] [address] Jul, [facility] [place] [facility] [address] [id number] [place] [address] Jun, [facility] [place] [facility] [address] [id number] [place] [address] Jun, [facility] [place] [facility] [address] [id number] [place] [address] Jun, [facility] [place] [facility] [id number] [place] [address] 16 Jun, 2014 [facility] [place] [facility] [address] [id number] [place] [address] 15 Jun, 2014 [facility] [place] [facility] [address] [id number] [place] [address] Jun, [facility] [place] [facility] [address] [facility] [id number] [place] [address] Jun, [facility] [place] [facility] [address] [id number] [place] [address] Jun, [facility] [place] [facility] [address] [id number] [place] [address] Jun, [facility] [place] [facility] [address] [id number] [place] [address] Jun, [facility] [place] [facility] [address] [facility] [id number] [place] [address] 29 May, 2013 [facility] [place] [facility] [address] [id number] [place] [address] 29 May, 2013 [facility] [place] [facility] [address] [id number] [place] [address] 26 May, 2013 [facility] [place] [facility] [address] [id number] [place] [address] 26 May, 2013 [facility] [place] [facility] [address] [id number] [place] [address] 17 Sep, 2013 [facility] [place] [facility] [address] [id number] [place] [address] 17 May, 2013 [facility] [place] [facility] [address] [id number] [place] [address] 15 Sep, 2013 [facility] [place] [facility] [address] [id number] [place] [address] 15 Sep, 2013 [facility] [place] [facility] [address] [id number] [place] [address] 15 Sep, 2013 [facility] [place] [facility] [address] [id number] [place] [address] 15 Sep, 2013 [facility] [place] [facility] [address] [id number] [place] [address] 10 May, 2013 [facility] [place] [facility] [address] [id number] [place] [address] 10 May, 2013 [facility] [place] [facility] [address] [id number] [place] [address] May, 2013 [facility] [place] [facility] [address] [id number] [place] [address] May, [facility] [place] [facility] [address] [facility] [id number] [place] [address] May, [facility] [place] [facility] [address] [id number] [place] [address] May, [facility] [place] [facility] [address] [facility] [id number] [place] [address] Apr, [facility] [place] [facility] [address] [id number] [place] [address] Apr, [facility] [place] [facility] [address] [facility] [id number] [place] [address] Apr, [facility] [place] [facility] [address] [id number] [place] [address] Apr, [facility] [place] [facility] [address] [id number] [place] [address] Apr, [facility] [place] [facility] [address] [facility] [id number] [facility] [place] [address] Apr, [facility] [address] [id number] [place] [address] Apr, [facility] [address] [id number] [place] [address] Apr, [facility] [address] [id number] [place] [address] Apr, [facility] [address] [facility] [id number] [place] [address] Apr, [facility] [address] [id number] [place] [address] Apr, [facility] [address] [facility] [id number] [place] [address] Apr, [facility] [address] [id number] [place] [address] Apr, [facility] [address] [id number] [place] [address] Apr, [facility] [address] [facility] [id number] [place] [address] Apr, [facility] [address] [facility] [id number] [place] [address] Mar, [facility] [address] [facility] [id number] [place] [address] Mar, [facility] [address] [facility] [id number] [place] [address] Mar, [facility] [address] [facility] [id number] [place] [address] Mar, [facility] [address] [id number] [place] [address] Mar, [facility] [address] [id number] [place] [address] Mar, [facility] [address] [id number] [place] [address] Mar, [facility] [address] [facility] [id number] [place] [address] Mar, [facility] [address] [id number] [place] [address] Mar, [facility] [address] [id number] [place] [address] Mar, 2013 [facility] [address] [facility] [id number] [place] [address] Mar, 2013 [facility] [address] [facility] [id number] [place] [address] Mar, 2013 [facility] [address] [id number] [place] [address] Mar, 2013 [facility] [address] [id number] [place] [address] Mar, 2013 [facility] [address] [id number] [place] [address] Mar, 2013 [facility] [address] [facility] [id number] [place] [address] Mar, 2013 [facility] [address] [facility] [id number] [place] [address] Mar, [facility] [address] [facility] [id number] [place] [address] Mar, [facility] [address] [facility] [id number] [place] [address] Feb, [facility] [address] [facility] [id number] [place] [address] Feb, [facility] [address] [id number] [place] [address] Feb, [facility] [address] [id number] [place] [address] Feb, [facility] [address] [id number] [place] [address] Feb, [facility] [address] [id number] [place] [address] Feb, [facility] [address] [id number] [place] [address] Feb, [facility] [address] [id number] [place] [address] Feb, [facility] [address] [id number] [place] [address] Feb, [facility] [address] [facility] [id number] [place] [address] Feb, [facility] [address] [facility] [id number] [place] [address] Feb, [facility] [address] [facility] [id number] [place] [address] Feb, [facility] [address] [id number] [place] [address] Feb, [facility] [address] [id number] [place] [address] Feb, [facility] [address] [facility] [id number] [place] [address] January, [facility] [address] [facility] [id number] [place] [address] January, [facility] [address] [id number] [place] [address] January, [facility] [address] [id number] [place] [address] January, [facility] [address] [facility] [id number] [place] [address] January, [facility] [address] [id number] [place] [address] January, [facility] [address] [id number] [place] [address] January, [facility] [address] [id number] [place] [address] January, [facility] [address] [id number] [place] [address] January, [facility] [address] [id number] [place] [address] January, [facility] [address] [id number] [place] [address] January, [facility] [address] [id number] [place] [address] January, [facility] [address] [id number] [place] [address] January, [facility] [address] [id number] [place] [address] January, [facility] [address] [id number] [place] [address] Dec, [facility] [address] [id number] [place] [address] Dec, [facility] [address] [facility] [id number] [place] [address] Dec, [facility] [address] [facility] [id number] [place] [address] Dec, [facility] [address] [id number] [place] [address] Dec, [facility] [address] [id number] [place] [address] Dec, [facility] [address] [id number] [place] [address] Dec, [facility] [address] [id number] [place] [address] Dec, [facility] [address] [id number] [place] [address] Dec, [facility] [address] [id number] [place] [address] Dec, [facility] [address] [id number] [place] [address] Nov, [facility] [address] [id number] [place] [address] Nov, [facility] [address] [id number] [place] [address] Nov, [facility] [address] [id number] [place] [address] Nov, [facility] [address] [id number] [place] [address] Nov, [facility] [address] [facility] [id number] [place] [address] Nov, [facility] [address] [id number] [place] [address] Nov, [facility] [address] [id number] [place] [address] Nov, [facility] [address] [id number] [place] [address] Nov, [facility] [address] [id number] [place] [address] Nov, [facility] [address] [id number] [place] [address] Oct, [facility] [address] [id number] [place] [address] Oct, [facility] [address] [id number] [place] [address] Oct, [facility] [address] [id number] [place] [address] Oct, [facility] [address] [id number] [place] [address] Oct, [facility] [address] [id number] [place] [address] Oct, [facility] [address] [id number] [place] [address] Oct, [facility] [address] [id number] [place] [address] Oct, [facility] [address] [id number] [place] [address] Oct, [facility] [address] [id number] [place] [address] Oct, [facility] [address] [id number] [place] [address] Oct, [facility] [address] [id number] [place] [address] Oct, [facility] [address] [id number] [place] [address] Oct, [facility] [address] [id number] [place] [address] Oct, [facility] [address] [id number] [place] [address] Sep, [facility] [address] [id number] [place] [address] 20 Sep, 2013 [facility] [address] [id number] [place] [address] 15 Sep, 2013 [facility] [address] [id number] [place] [address] 15 Sep, 2013 [facility] [address] [id number] [place] [address] 14 Sep, 2013 [facility] [address] [id number] [place] [address] 14 Sep, 2013 [facility] [address] [id number] [place] [address] 14 Sep, 2013 [facility] [address] [id number] [place] [address] 14 Sep, 2013 [facility] [address] [id number] [place] [address] 08 Sep, 2013 [facility] [address] [id number] [place] [address] 08 Sep, 2013 [facility] [address] [id number] [place] [address] 10 Aug, 2013 [facility] [address] [id number] [place] [address] Aug, [facility] [address] [id number] [place] [address] Jul, [facility] [address] [id number] [place] [address] Jul, [facility] [address] [id number] [place] [address] 13 Jul, 2013 [facility] [address] [id number] [place] [address] 13 Jul, 2013 [facility] [address] [id number] [place] [address] 13 Jul, 2013 [facility] [address] [id number] [place] [address] Jul, [facility] [address] [id number] [place] [address] Jul, [facility] [address] [id number] [place] [address] Jul, [facility] [address] [id number] [place] [address] 08 Jul, 2013 [facility] [address] [id number] [place] [address] 08 Jul, 2013 [facility] [address] [id number] [place] [address] Jul, 2012 [facility] [address] [id number] [place] [address] Jul, 2012 [facility] [address] [id number] [place] [address] Jul, 2012 [facility] [address] [id number] [place] [address] Jul, [facility] [address] [id number] [place] [address] Jul, [facility] [address] [id number] [place] [address] Jul, [facility] [address] [id number] [place] [address] Jul, [facility] [address] [id number] [place] [address] Jul, [facility] [address] [id number] [place] [address] Jul, [facility] [address] [id number] [place] [address] Jun, 2012 [facility] [address] [id number] [place] [address] Jun, 2012 [facility] [address] [id number] [place] [address] Jun, [facility] [address] [id number] [place] [address] 16 Jun, 2012 [facility] [address] [id number] [place] [address] 16 Jun, 2012 [facility] [address] [id number] [place] [address] 16 Jun, 2012 [facility] [address] [id number] [place] [address] 10 Jun, 2012 [facility] [address] [id number] [place] [address] 10 Jun, 2012 [facility] [address] [id number] [place] [address] Jun, [facility] [address] [id number] [place] [address] Jun, [facility] [address] [id number] [place] [address] Jun, [facility] [address] [id number] [place] [address] 26 May, 2012 [facility] [address] [id number] [place] [address] 25 May, 2012 [facility] [address] [id number] [place] [address] 19 May, 2012 [facility] [address] [id number] [place] [address] 17 May, 2012 [facility] [address] [id number] [place] [address] 11 May, 2012 [facility] [address] [id number] [place] [address] 10 May, 2012 [facility] [address] [id number] [place] [address] 09 May, 2012 [facility] [address] [id number] [place] [address] 05 May, 2012 [facility] [address] [id number] [place] [address] 30 Apr, 2013 [facility] [address] [id number] [place] [address] Apr, [facility] [address] [id number] [place] [address] Apr, [facility] [address] [id number] [place] [address] Apr, [facility] [address] [id number] [place] [address] Apr, [facility] [address] [facility] [id number] [place] [address] Mar, [facility] [address] [id number] [place] [address] Mar, [facility] [address] [id number] [place] [address] Mar, [facility] [address] [id number] [place] [address] Mar, [facility] [address] [id number] [place] [address] Mar, [facility] [address] [id number] [place] [address] Mar, [facility] [address] [id number] [place] [address] Mar, [facility] [address] [id number] [place] [address] Mar, [facility] [address] [id number] [place] [address] Feb, [facility] [address] [id number] [place] [address] Feb, [facility] [address] [id number] [place] [address] January, [facility] [address] [id number] [place] [address] January, [facility] [address] [id number] [place] [address] 10 Dec, 2012 [facility] [address] [id number] [place] [address] 09 Dec, 2012 [facility] [address] [id number] [place] [address] 23 Nov, 2012 [facility] [address] [id number] [place] [address] Nov, [facility] [address] [id number] [place] [address] Nov, [facility] [address] [id number] [place] [address] 14 Nov, 2012 [facility] [address] [id number] [place] [address] 27 Oct, 2012 [facility] [address] [id number] [place] [address] Oct, [facility] [address] [id number] [place] [address] Oct, [facility] [address] [id number] [place] [address] 26 Oct, 2012 [facility] [address] [id number] [place] [address] 16 Oct, 2012 [facility] [address] [id number] [place] [address] 14 Oct, 2012 [facility] [address] [id number] [place] [address] 08 Oct, 2012 [facility] [address] [id number] [place] [address] 07 Oct, 2012 [facility] [address] [id number] [place] [address] 03 Oct, 2012 [facility] [address] [id number] [place] [address] 30 Sep, 2012 [facility] [address] [id number] [place] [address] Sep, [facility] [address] [id number] [place] [address] Sep, [facility] [address] [id number] [place] [address] Sep, [facility] [address] [id number] [place] [address] 17 Sep, 2012 [facility] [address] [id number] [place] [address] Sep, [facility] [address] [id number] [place] [address] Sep, [facility] [address] [id number] [place] [address] Sep, [facility] [address] [id number] [place] [address] Aug, [facility] [address] [id number] [place] [address] 31 Aug, 2012 [facility] [address] [id number] [place] [address] Aug, [facility] [address] [id number] [place] [address] Aug, [facility] [address] [id number] [place] [address] Aug, [facility] [address] [id number] [place] [address] Aug, [facility] [address] [id number] [place] [address] 18 Aug, 2012 [facility] [address] [id number] [place] [address] Aug, [facility] [id number] [place] [address] Jul, [facility] [address] [id number] [place] [address] Jul, [facility] [address] [id number] [place] [address] Jul, [facility] [address] [id number] [place] [address] Jul, [facility] [address] [id number] [place] [address] Jul, [facility] [address] [id number] [place] [address] Jul, [facility] [address] [id number] [place] [address] Jun, [facility] [address] [id number] [place] [address] Jun, [facility] [address] [id number] [place] [address] Jun, [facility] [address] [id number] [place] [address] Jun, [facility] [address] [id number] [place] [address] Jun, [facility] [address] [id number] [place] [address] Jun, [facility] [address] [id number] [place] [address] 19 Jun, 2012 [facility] [address] [id number] [place] [address] Jun, [facility] [address] [id number] [place] [address] 10 Jun, 2012 [facility] [address] [id number] [place] [address] 26 May, 2012 [facility] [address] [id number] [place] [address] 24 May, 2012 [facility] [address] [id number] [place] [address] 18 May, 2012 [facility] [address] [id number] [place] [address] 30 Apr, 2012 [facility] [address] [id number] [place] [address] Apr, [facility] [id number] [place] [address] Apr, [facility] [address] [id number] [place] [address] Apr, [facility] [address] [id number] [place] [address] Apr, [facility] [address] [id number] [place] [address] Apr, [facility] [address] [id number] [place] [address] Mar, [facility] [address] [id number] [place] [address] Mar, [facility] [address] [id number] [place] [address] Mar, [facility] [address] [id number] [place] [address] Mar, [facility] [address] [id number] [place] [address] Feb, [facility] [address] [id number] [place] [address] Feb, [facility] [address] [id number] [place] [address] Feb, [facility] [address] [id number] [place] [address] Feb, [facility] [address] [id number] [place] [address] Feb, [facility] [address] [id number] [place] [address] January, [facility] [address] [id number] [place] [address] January, [facility] [address] [id number] [place] [address] January, [facility] [address] [id number] [place] [address] January, [facility] [address] [id number] [place] [address] January, [facility] [address] [id number] [place] [address] January, [facility] [address] [id number] [place] [address] Dec, [facility] [address] [id number] [place] [address] Dec, [facility] [address] [id number] [place] [address] Dec, [facility] [address] [id number] [place] [address] Dec, [facility] [address] [id number] [place] [address] Dec, [facility] [address] [id number] [place] [address] Nov, [facility] [address] [id number] [place] [address] Nov, [facility] [address] [id number] [place] [address] Nov, [facility] [address] [id number] [place] [address] Nov, [facility] [address] [id number] [place] [address] Oct, [facility] [address] [id number] [place] [address] Oct, [facility] [address] [id number] [place] [address] 24 Oct, 2011 [facility] [address] [id number] [place] [address] 13 Oct, 2011 [facility] [address] [id number] [place] [address] Oct, [facility] [address] [id number] [place] [address] Sep, [facility] [address] [id number] [place] [address] Sep, [facility] [address] [id number] [place] [address] Sep, [facility] [address] [id number] [place] [address] Sep, [facility] [address] [id number] [place] [address] Sep, [facility] [address] [id number] [place] [address] Sep, [facility] [address] [id number] [place] [address] Aug, [facility] [address] [id number] [place] [address] Aug, [facility] [address] [id number] [place] [address] Aug, [facility] [id number] [place] [address] Jul, [facility] [address] [id number] [place] [address] Jul, [facility] [address] [id number] [place] [address] Jul, [facility] [address] [id number] [place] [address] Jul, [facility] [address] [id number] [place] [address] Jun, [facility] [address] [id number] [place] [address] Jun, [facility] [address] [id number] [place] [address] Jun, [facility] [address] [id number] [place] [address] 10 Jun, 2011 [facility] [address] [id number] [place] [address] 10 Jun, 2011 [facility] [address] [id number] [place] [address] 10 Jun, 2011 [facility] [address] [id number] [place] [address] 11 Mar, 2011 [facility] [address] [id number] [place] [address] 18 Dec, 2010 [facility] [address] [id number] [place] [address] 11 Dec, 2010 [facility] [address] [id number] [place] [address] 18 Nov, 2010 [facility] [address] [id number] [place] [address] 16 Nov, 2010 [facility] [address] [id number] [place] [address] 10 Sep, 2010 [facility] [address] [id number] [place] [address] 31 Aug, 2010 [facility] [address] [id number] [place] [address] 29 Aug, 2010 [facility] [address] [id number] [place] [address] 29 Aug, 2010 [facility] [address] [id number] [place] [address] 29 Aug, 2010 [facility] [address] [id number] [place] [address] 27 Aug, 2010 [facility] [address] [id number] [place] [address] 14 Aug, 2010 [facility] [address] [id number] [place] [address] 08 Aug, 2010 [facility] [address] [id number] [place] [address] 08 Aug, 2010 [facility] [address] [id number] [place] [address] 07 Aug, 2010 [facility] [address] [id number] [place] [address] Aug, [facility] [address] [id number] [place] [address] Aug, [facility] [address] [id number] [place] [address] Aug, [facility] [address] [id number] [place] [address] Jul, [facility] [address] [id number] [place] [address] Jul, [facility] [address] [id number] [place] [address] Jul, [facility] [address] [id number] [place] [address] Jul, [facility] [address] [id number] [place] [address] Jul, [facility] [address] [id number] [place] [address] Jul, [facility] [address] [id number] [place] [address] Jun, [facility] [address] [id number] [place] [address] Jun, [facility] [address] [id number] [place] [address] Jun, [facility] [address] [id number] [place] [address] Jun, [facility] [address] [id number] [place] [address] 16 Apr, 2010 [facility] [address] [id number] [place] [address] Mar, [facility] [address] [id number] [place] [address] Feb, [facility] [address] [id number] [place] [address] January, [facility] [address] [id number] [place] [address] Dec, [facility] [address] [id number] [place] [address] Nov, [facility] [address] [id number] [place] [address] Aug, [facility] [address] [id number] [place] [address] Aug, [facility] [address] [id number] [place] [address] Aug, [facility] [address] [id number] [place] [address] Jul, [facility] [address] [id number] [place] [address] Jul, [facility] [address] [id number] [place] [address] Jul, [facility] [address] [id number] [place] [address] Jun, [facility] [address] [id number] [place] [address] Jun, [facility] [address] [id number] [place] [address] Jun, [facility] [address] [id number] [place] [address] Jun, [facility] [address] [id number] [place] [address] Jun, [facility] [address] [id number] [place] [address] Jun, [facility] [address] [id number] [place] [address] Apr, [facility] [address] [id number] [place] [address] Apr, [facility] [address] [id number] [place] [address] Feb, [facility] [address] [id number] [place] [address] January, [facility] [address] [id number] [place] [address] Dec, IMMUNIZATIONS No Known Immunizations SOCIAL HISTORY Never Assessed REASON FOR VISIT f/u, Helio VALLADARES PLAN OF CARE Activity Details Follow Up 4 Weeks Reason: VITAL SIGNS MEDICATIONS Medication Instructions Dosage Frequency Start Date End Date Duration S tatus Glucocard Expression Test - as directed Sep, Active Gabapentin 300 MG Orally 3 times a day 2 capsules 8h Mar, Active Victoza 18 MG/3ML INJECT 1.8MG SUBCUTANEOUSLY ONCE DAILY 90 Active Ventolin HFA 108 (90 Base) MCG/ACT Inhalation every 4 hrs 2 puffs a s needed 4h 30 Active Vitamin D3 1,000 unit 2 capsule by Oral route 1 time per day Apr, Active Allopurinol 300 MG Orally Once a day 1 tablet 24h 90 Active Metoprolol Succinate ER 100 mg Orally twice a day 1 tablet 12h 90 days Active Nexium 40 MG Orally Once a day 1 capsule 24h 90 Active Amlodipine Besylate 5 mg Orally Once a day 1 tablet 24h Nov, 90 days Active Incruse Ellipta 62.5 MCG/INH Inhalation Once a day 1 puff 24h 90 Active NovoLog Flexpen 100 UNIT/ML INJECT 30 UN ITS SUBCUTANEOUSLY WITH BREAKFAST, 30 UNITS WITH LUNCH AND 40 UNITS WITH EVENING MEAL 90 Active Aspirin 81 mg 1 tablet by Oral route 1 time per day 2013 Active Voltaren 1 % Transdermal every 4-6 hours as needed 4grams to knee and hip 5 Active Potassium Chloride Kathi ER 20 MEQ Orally Once a day 1 tablet with food 24h 30 days Active Silver Sulfadiazine 1 % Externally Once a day 1 application to a ffected area 24h Feb, Not-Taking Atorvastatin Calcium 20 MG Orally Once a day 1 tablet at bedtime 24h Active Valium 5 mg Orally Twice a day as needed for anxiety 1 tablet Oct, Active Fluticasone Propionate 50 MCG/ACT Nasally Once a day 1 spray in each nostril 24h 30 Active Symbicort 80-4.5 MCG/ACT Inhalation Twice a day 2 puffs 12h 30 Active Lantus 100 UNIT/ML Subcutaneous 2 times a day 100u 12h Sep, 19 Active Clonidine HCl 0.1 MG Orally 2 times a day 1 tablet 12h 90 Active Trazodone HCl 100 mg Orally Once a day 0.5 tab twice a day for 1 week then take full tablet twice a day 24h Nov, 30 day(s) Acti ve Zofran ODT 8 MG Orally Twice a day as needed 1 tablet on the tongue and allow to dissolve 15 Active Singulair 10 mg Orally Once a day 1 Tablet by Oral route 1 time per day 24h Nov, 90 days Active Clopidogrel Bisulfate 75 MG Orally Once a day 1 tablet 24h 90 Not-Taking Furosemide 20 MG Orally Once a day 3 tablets 24h 30 Active Losartan Potassium 100 MG Orally Once a day 1 tablet 24h Active Imbruvica 140 MG Orally Once a day 3 capsules in the evening 24h 23 Oct, 2016 Active Abilify 30 MG Orally Once a day 1 tablet 24h 30 days Active Naproxen 500 MG TAKE ONE TABLET BY M OUTH EVERY 12 HOURS NEEDED FOR HEADACHE 90 Active Flomax 0.4 mg Orally Once a day 1 capsule 30 minutes after the same meal each day 24h 90 Active Percocet 10-325 MG Orally 4 times a day 1 tablet as needed 6h 2 1 Oct, 2018 28 days Active Ambien 10 mg Orally at bedtime as needed for sleep 1 tablet Active RESULTS No Results PROCEDURES Procedure Date Ordered Result Body Site [facility] ESTABLISHED PATIENT December 10, 2018 INSTRUCTIONS MEDICATIONS ADMINISTERED No Known Medications MEDICAL (GENERAL) HISTORY Type Description Date Medical History type II diabetes Medical History coronary artery disease stress test 15 Medical History chronic obstructive pulmonary disease (C OPD) Medical History gastroesophageal reflux disease (GERD) Medical History acute renal failure Medical History erectile dysfunction Medical History hyperlipidemia Medical History obesity Medical History skin cancer-basal cell R cheondoism (removed ) Medical History Arthritis Medical History [...] 2009 Surgical History colonoscopy 2009 ([facility]dy), 2013 ([facility] ) Surgical History heart cath: [...] History inability to urinate 09/16/15 Hospitalization History [facility] inpatient [facility] health e[facility]ly 1999's Hospitalization History hyperkalemia 10/2017 Hospitalization History fluid in lung
--- OUTSIDE RECORDS SUMMARY | 2020-03-01 16:51 | XMS REPORT ---
Author Author Michele WASHBURN Organization [facility] Address [address] [place] [address] Care Team Providers Care Safety And Health Manager Name Role Phone NOEMI WASHBURN Unavailable PROBLEMS Type Condition ICD9-CM Code OVX89-LC Code Onset Dates Condition S tatus SNOMED Code Problem DM neuro manif type II E11.49 Active 09963741 Problem Chronic pain G89.29 Active 9500685 1 Problem Diabetes E11.9 Active 03236414 Problem Reactive airway disease J45.909 Active 018816685633 Problem Leukocytosis D72.829 Active 6554783 06 Problem Insomnia, unspecified type G47.00 Act sharon 912954249 Problem Bipolar I disorder, most recent episode (or curr ent) mixed, moderate F31.62 Active 12677714 Problem Primary osteoarthritis of right knee M17.11 Active 545423159351921 Problem Cough R05 Active 08894092 Problem Pure hypercholesterolemia E78.00 Acti ve 807703770 Problem Dysuria R30.0 Active 20625646 Problem Benign prostatic hyperplasia with lower urinary tract symptoms, unspecified morphology N40.1 Active 11088 6007 Problem Eustachian tube dysfunction, unspecified laterality H69.80 Active 96470644 Problem Polyneuropathy associated with underlying disease G63 Active 543670444 Problem Diabetic polyneuropathy associated with type 2 d iabetes mellitus E11.42 Active 58417988 Problem Anemia of chronic illness D63.8 Acti ve 855915676 Problem Chronic lymphocytic leukemia C91.10 A ctive 41678590 Problem Bilateral primary osteoarthritis of knee M17.0 Active 198281424 Problem 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 Active 220682082 Problem Eye exam abnormal R93.8 Active 16 7145110 Problem Retinal edema H35.81 Active 700828 6 Problem Lymphocytosis D72.820 Active 553363 09 Problem Bipolar disorder, in partial remission, most rec ent episode depressed F31.75 Active 74037338 Problem Hypokalemia E87.6 Active 89933984 Problem Falling R29.6 Active 214951142 Problem Pressure ulcer of other site, stage 3 L89.893 Active 511845595 Problem Other iron deficiency anemia D50.8 A ctive 75439287 Problem Mild cognitive impairment G31.84 Acti ve 635207668 Problem Skin cancer C44.90 Active 72700034 7 Problem MCC (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 Z79.4 Active 413427294 Problem Morbid obesity E66.01 Active 05632 6002 Problem Mood disorder F39 Active 639404 05 Problem Anxiety F41.9 Active 85769943 Problem Essential hypertension I10 Active 03435062 Problem Bipolar disorder F31.9 Active 137 04836 Problem Chronic diastolic (congestive) heart failure I50.3 2 Active 932366696 Problem Psychophysiological insomnia F51.04 A ctive 397362764 Problem Type 2 diabetes mellitus with diabetic neuropathy, uns pecified E11.40 Active 67309724 ALLERGIES No Information ENCOUNTERS Encounter Location Date Diagnosis [place] [address] [address] Oct, [place] [address] [address] Oct, [place] [address] [address] Sep, [place] [address] [address] Sep, Mood disorder F39 [place] [address] [address] Sep, Bipolar disorder, in partial remission, most recent episode depressed F31.75 and Mild cognitive impairment G31.84 [facility] [address] [address] Sep, Mood disorder F39 [facility] [address] [address] Sep, [place] [address] [address] Sep, Mood disorder F39 [place] [address] [place] [id number] [place] [address] Sep, [facility] [address] [id number] [place] [address] Aug, Mood disorder F39 [facility] [address] [id number] [place] [address] Aug, [facility] [address] [id number] [place] [address] Aug, [facility] [address] [id number] [place] [address] Aug, [facility] [address] [id number] [place] [address] Aug, [facility] [address] [id number] [place] [address] Aug, [facility] [address] [id number] [place] [address] Aug, [facility] [address] [id number] [place] [address] Aug, [facility] [address] [id number] [place] [address] Aug, Essential hypertension I10 [facility] [address] [id number] [place] [address] Aug, Bipolar disorder, in partial remission, most recent episode depressed F31.75 and Mild cognitive impairment G31.84 [facility] [address] [place] [id number] [place] [address] Aug, Mood disorder F39 [facility] [address] [id number] [place] [address] Aug, [facility] [address] [place] [id number] [place] [address] Aug, Bipolar disorder, in partial remission, most recent episode depressed F31.75 and Mild cognitive impairment G31.84 [facility] [address] [place] [id number] [place] [address] Jul, Bipolar disorder, in partial remission, most recent episode depressed F31.75 and Mild cognitive impairment G31.84 [facility] [address] [address] Jul, Psychophysiological insomnia F51.04 [facility] [address] [address] Jul, [facility] [address] [address] Jul, [facility] [address] [address] Jul, [facility] [address] [address] Jul, [facility] [address] [address] Jul, [facility] [address] [address] Jul, [facility] [address] [address] Jul, Bipolar disorder, in partial remission, most recent episode depressed F31.75 and Mild cognitive impairment G31.84 [facility] [address] [address] Jul, Chronic pain G89.29 ; Diabetes E11.9 ; E ssential hypertension I10 ; Ill feeling R68.89 ; Local infection of the skin and subcutaneous tissue, unspecified L08.9 and Other injury of unspecified body region, initial encounter T14.8XXA [facility] [address] [address] Jun, Bipolar disorder, in partial remission, most recent episode depressed F31.75 and Mild cognitive impairment G31.84 [facility] [address] [address] Jun, [facility] [address] [address] Jun, Bipolar disorder, in partial remission, most recent episode depressed F31.75 and Mild cognitive impairment G31.84 [facility] [address] [address] Jun, Psychophysiological insomnia F51.04 [facility] [address] [address] Jun, Psychophysiological insomnia F51.04 ; Ch ronic pain G89.29 ; Bipolar I disorder, most recent episode (or current) mixed, moderate F31.62 ; 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 ; Polyneuropathy associated with underlying disease G63 ; Type 2 diabetes mellitus with diabetic neuropathy, unspecified E11.40 ; MCC (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 Z79.4 and Hyperglycemia R73.9 [place] [address] [address] Jun, Bipolar disorder, in partial remission, most recent episode depressed F31.75 and Mild cognitive impairment G31.84 [place] [address] [address] Jun, [place] [address] [address] Jun, Bipolar disorder F31.9 [place] [address] [address] May, Bipolar disorder, in partial remission, most recent episode depressed F31.75 and Mild cognitive impairment G31.84 [place] [address] [address] May, [place] [address] [address] Apr, Chronic pain G89.29 and Bipolar disorder F31.9 [facility] [address] [address] Mar, Bipolar disorder F31.9 and Chronic pain G89.29 [facility] [address] [address] Feb, Bipolar disorder F31.9 [facility] [address] [place] [id number] [place] [address] 17 Feb, 2019 Cellulitis of right upper extremity L03. 113 and Skin abrasion T14.8XXA [facility] [address] [place] [id number] [place] [address] Feb, Bipolar disorder, in partial remission, most recent episode depressed F31.75 and Mild cognitive impairment G31.84 [facility] [address] [address] Feb, Chronic pain G89.29 [facility] [address] [address] Feb, Bipolar disorder, in partial remission, most recent episode depressed F31.75 and Mild cognitive impairment G31.84 [place] [address] [address] January, Bipolar disorder, in partial remission, most recent episode depressed F31.75 and Mild cognitive impairment G31.84 [facility] [address] [address] January, Chronic pain G89.29 and Bipolar disorder F31.9 [facility] [address] [address] January, Bipolar disorder, in partial remission, most recent episode depressed F31.75 and Mild cognitive impairment G31.84 [facility] [address] [place] [id number] [place] [address] Dec, [facility] [address] [address] Dec, Chronic pain G89.29 and Bipolar disorder F31.9 [facility] [address] [address] Dec, Edema of both lower extremities R60.0 [facility] [address] [place] [id number] [place] [address] Dec, Bipolar disorder F31.9 [facility] [address] [address] Dec, Bipolar disorder, in partial remission, most recent episode depressed F31.75 and Mild cognitive impairment G31.84 [place] [address] [address] Nov, [place] [address] [address] Nov, Chronic pain G89.29 [place] [address] [address] Nov, Bipolar disorder, in partial remission, most recent episode depressed F31.75 and Mild cognitive impairment G31.84 [place] [address] [address] Nov, Bipolar disorder F31.[address] [address] 04 Nov, 2018 Encounter for Medicare annual [...] unspecified morphology N40.1 and Essential hypertension I10 [place] [address] [address] Oct, Chronic pain G89.29 [place] [address] [address] Oct, Diabetes E11.9 [place] [address] [address] Oct, Bipolar I disorder, most recent episode (or current) mixed, moderate F31.62 and Mild cognitive impairment G31.84 [place] [address] [address] Oct, Bipolar I disorder, most recent episode (or current) mixed, moderate F31.62 and Mild cognitive impairment G31.84 [place] [address] [address] Sep, Bipolar I disorder, most recent episode (or current) mixed, moderate F31.62 and Mild cognitive impairment G31.84 [place] [address] [address] Sep, [place] [address] [address] Sep, Diabetes E11.9 ; Hypoxia R09.02 ; Hyperg lycemia R73.9 ; Therapeutic drug monitoring Z51.81 ; BMI 50.0-59.9, adult Z68.43 and Skin cancer C44.[address] [address] Sep, Chronic pain G89.29 [place] [address] [address] Sep, Bipolar I disorder, most recent episode (or current) mixed, moderate F31.62 [place] [address] [address] Sep, [place] [address] [address] Sep, [place] [address] [address] Aug, Chronic pain G89.29 [place] [address] [address] Aug, Bipolar I disorder, most recent episode (or current) mixed, moderate F31.62 [place] [address] [address] Aug, Bipolar I disorder, most recent episode (or current) mixed, moderate F31.62 and Mild cognitive impairment G31.84 [place] [address] [place] [address] [place] [address] Jul, [facility] [address] [place] [id number] [place] [address] Jul, Chronic pain G89.29 [facility] [address] [place] [id number] [place] [address] Jul, Bipolar I disorder, most recent episode (or current) mixed, moderate F31.62 and Mild cognitive impairment G31.84 [facility] [address] [place] [id number] [place] [address] Jul, Bipolar I disorder, most recent episode (or current) mixed, moderate F31.62 and MCI (mild cognitive impairment) G31.84 [facility] [address] [place] [id number] [place] [address] Jul, [facility] [address] [address] Jul, [facility] [address] [place] [id number] [place] [address] Jul, Bipolar I disorder, most recent episode (or current) mixed, moderate F31.62 [facility] [address] [place] [id number] [place] [address] Jul, Chronic pain G89.29 [facility] [address] [place] [id number] [place] [address] Jun, Bipolar I disorder, most recent episode (or current) mixed, moderate F31.62 [facility] [address] [place] [id number] [place] [address] Jun, Pre-procedure lab exam Z01.812 [facility] [address] [place] [id number] [place] [address] Jun, [facility] [address] [id number] [place] [id number] Jun, [facility] [address] [place] [id number] [place] [address] Jun, [place] [address] [address] Jun, Forgetfulness R68.89 ; Pre-syncope R55 ; Localized edema R60.0 ; Other iron deficiency anemia D50.8 and BMI 50.0-59.9, adult Z68.43 [place] [address] [address] Jun, Chronic pain G89.29 [place] [address] [address] Jun, Chronic pain G89.29 [place] [address] [address] Jun, Bipolar I disorder, most recent episode (or current) mixed, moderate F31.62 [place] [address] [address] May, Chronic pain G89.29 [place] [address] [address] Apr, [place] [address] [address] Apr, Chronic pain G89.29 [place] [address] [address] Apr, Primary osteoarthritis of right knee M17 .11 [place] [address] [address] Mar, [address] [address] Mar, BMI 50.0-59.9, adult Z68.43 and Bipolar disorder, in partial remission, most recent episode depressed F31.[address] [address] Mar, Diabetes E11.9 ; Pure hypercholesterolem ia E78.00 ; Essential hypertension I10 ; Nausea with vomiting, unspecified R11.2 and Headache, unspecified headache type R51 [address] [place] [address] Mar, Bipolar I disorder, most recent episode (or current) mixed, moderate F31.62 [place] [address] [address] Mar, Bipolar I disorder, most recent episode (or current) mixed, moderate F31.62 [place] [address] [address] Mar, Chronic pain G89.29 [place] [address] [address] Mar, Bipolar I disorder, most recent episode (or current) mixed, moderate F31.62 [place] [address] [address] Feb, Bipolar I disorder, most recent episode (or current) mixed, moderate F31.62 [place] [address] [address] Feb, Chronic pain G89.29 [place] [address] [address] Feb, Decubitus ulcer of right foot, stage 3 L 89.893 and BMI 50.0-59.9, adult Z68.43 [place] [address] [address] 04 Feb, 2018 Bipolar I disorder, most recent episode (or current) mixed, moderate F31.62 [place] [address] [address] Feb, [facility] [address] [address] January, [place] [address] [address] January, Chronic pain G89.29 [facility] [address] [address] January, Bipolar I disorder, most recent episode (or current) mixed, moderate F31.62 [place] [address] [address] January, Bipolar I disorder, most recent episode (or current) mixed, moderate F31.62 [place] [address] [address] Dec, Bipolar I disorder, most recent episode (or current) mixed, moderate F31.62 and BMI 50.0-59.9, adult Z68.43 [place] [address] [address] Dec, Bipolar I disorder, most recent episode (or current) mixed, moderate F31.62 [place] [address] [address] Dec, Chronic pain G89.[address] [address] Dec, DM neuro manif type II E11.49 ; Right fl ank pain R10.9 ; MCC 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 Z79.891 ; Encounter for medication monitoring Z51.81 and BMI 50.0-59.9, adult Z68.43 [place] [address] [address] Dec, Bipolar I disorder, most recent episode (or current) mixed, moderate F31.62 [place] [address] [address] Nov, Bipolar I disorder, most recent episode (or current) mixed, moderate F31.62 [place] [address] [address] Nov, Chronic pain G89.29 [place] [address] [address] Nov, Bipolar I disorder, most recent episode (or current) mixed, moderate F31.62 [place] [address] [address] Nov, Hypokalemia E87.6 [place] [address] [address] Nov, Bipolar I disorder, most recent episode (or current) mixed, moderate F31.62 [place] [address] [address] Oct, Chronic pain G89.29 [place] [address] [address] Oct, BMI 50.0-59.9, adult Z68.43 and Bipolar I disorder, most recent episode (or current) mixed, moderate F31.62 [place] [address] [address] Oct, Bipolar I disorder, most recent episode (or current) mixed, moderate F31.62 [place] [address] [address] Oct, [place] [address] [address] Oct, Hypokalemia E87.6 [place] [address] [address] Oct, DM neuro manif type II E11.[address] [address] Oct, Bipolar I disorder, most recent episode (or current) mixed, moderate F31.62 [place] [address] [address] Oct, Bipolar I disorder, most recent episode (or current) mixed, moderate F31.62 [place] [address] [address] 14 Oct, 2017 Hyperkalemia E87.5 ; Falling R29.6 ; BMI 50.0-59.9, adult Z68.43 and Acute left ankle pain M25.572 [place] [address] [address] Oct, DM neuro manif type II E11.[address] [address] Oct, [place] [address] [address] Sep, Chronic pain G89.29 [place] [address] [address] Sep, [address] [address] Sep, Bilateral primary osteoarthritis of knee M17.[address] [address] Sep, Generalized edema R60.[address] [address] Sep, Bipolar I disorder, most recent episode (or current) mixed, moderate F31.[address] [address] Sep, Hypoxia R09.02 ; Other hypervolemia E87. 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 ; Anemia of chronic illness D63.8 and BMI 50.0-59.9, adult Z68.[address] [address] Sep, [address] [address] Sep, Bipolar I disorder, most recent episode (or current) mixed, moderate F31.[address] [address] Aug, Chronic pain G89.[address] [address] Aug, Generalized edema R60.1 [address] [place] [address] Aug, [place] [address] [place] [address] Aug, [place] [address] [place] [address] Aug, Bipolar I disorder, most recent episode (or current) mixed, moderate F31.62 [place] [address] [place] [address] Aug, Bipolar I disorder, most recent episode (or current) mixed, moderate F31.62 [place] [address] [place] [address] Aug, Chronic pain G89.29 [place] [address] Jul, Bipolar I disorder, most recent episode (or current) mixed, moderate F31.62 [place] [address] [address] Jul, Bipolar I disorder, most recent episode (or current) mixed, moderate F31.62 and BMI 60.0-69.9, adult Z68.[address] [address] Jul, Bipolar I disorder, most recent episode (or current) mixed, moderate F31.62 [place] [address] [address] Jul, Chronic pain G89.[address] [address] Jul, Bipolar I disorder, most recent episode (or current) mixed, moderate F31.62 [place] [address] Jun, Polyneuropathy associated with underlyin g disease G63 and Diabetes E11.[address] [address] Jun, Bipolar I disorder, most recent episode (or current) mixed, moderate F31.62 [facility] [address] [address] Jun, Chronic pain G89.29 [facility] [address] [address] May, Bipolar I disorder, most recent episode (or current) mixed, moderate F31.62 [place] [address] [address] May, Bipolar I disorder, most recent episode (or current) mixed, moderate F31.62 [place] [address] [address] May, Diabetic polyneuropathy associated with type 2 diabetes mellitus E11.42 [place] [address] [address] 18 May, 2017 Bipolar I disorder, most recent episode (or current) mixed, moderate F31.62 [place] [address] [address] 13 May, 2017 Bipolar I disorder, most recent episode (or current) mixed, moderate F31.62 [place] [address] [address] May, Chronic pain G89.29 [facility] [address] [address] Apr, Bipolar I disorder, most recent episode (or current) mixed, moderate F31.62 [facility] [address] [address] Apr, [facility] [address] [address] Apr, Chronic pain G89.29 and DM neuro manif t ype II E11.49 [facility] [address] [address] Apr, [facility] [address] [address] Apr, Bipolar I disorder, most recent episode (or current) mixed, moderate F31.62 [facility] [address] [address] Apr, Chronic pain G89.29 [facility] [address] [address] Apr, Iliotibial band syndrome, left M76.32 [facility] [address] [address] Apr, Bipolar I disorder, most recent episode (or current) mixed, moderate F31.62 [place] [address] [address] Mar, Bipolar I disorder, most recent episode (or current) mixed, moderate F31.62 [facility] [address] [address] Mar, Bipolar I disorder, most recent episode (or current) mixed, moderate F31.62 [facility] [address] [address] Mar, [facility] [address] [address] Mar, Bipolar I disorder, most recent episode (or current) mixed, moderate F31.62 [facility] [address] [address] Mar, Chronic pain G89.29 [facility] [address] [address] Mar, Bipolar I disorder, most recent episode (or current) mixed, moderate F31.62 [facility] [address] [address] Mar, Bipolar I disorder, most recent episode (or current) mixed, moderate F31.62 [facility] [address] [address] Mar, Acute pain of left knee M25.562 ; Left h ip pain M25.552 ; Generalized edema R60.1 and Tongue swelling R22.0 [place] [address] [address] Mar, [place] [address] [address] Feb, Chronic pain G89.29 [place] [address] [address] Feb, Diabetes E11.9 [place] [address] [address] January, Chronic pain G89.29 [place] [address] [address] January, [place] [address] [address] January, Bipolar I disorder, most recent episode (or current) mixed, moderate F31.62 [place] [address] [address] Dec, Bipolar I disorder, most recent episode (or current) mixed, moderate F31.62 [place] [address] [address] Dec, Chronic pain G89.29 [place] [address] [address] Dec, Bipolar I disorder, most recent episode (or current) mixed, moderate F31.62 [place] [address] [address] Dec, Diabetes E11.9 ; Essential hypertension I10 ; Chronic pain G89.29 and Morbid obesity E66.01 [place] [address] [address] Dec, [address] [address] Dec, Bipolar I disorder, most recent episode (or current) mixed, moderate F31.62 [facility] [address] [id number] [place] [address] Dec, Bipolar I disorder, most recent episode (or current) mixed, moderate F31.62 [facility] [address] [address] Nov, Chronic pain G89.29 [facility] [address] [address] Nov, Bipolar I disorder, most recent episode (or current) mixed, moderate F31.62 [facility] [address] [address] Nov, [facility] [address] [address] Nov, Bipolar I disorder, most recent episode (or current) mixed, moderate F31.62 [facility] [address] [address] Nov, Bipolar I disorder, most recent episode (or current) mixed, moderate F31.62 [facility] [address] [address] Nov, [facility] [address] [address] Nov, [facility] [address] [address] Nov, [facility] [address] [address] Oct, Chronic pain G89.29 [facility] [address] [address] Oct, Bipolar I disorder, most recent episode (or current) mixed, moderate F31.62 [facility] [address] [address] Oct, [facility] [address] [address] 15 Feb, 2017 Chronic pain G89.29 ; Diabetes E11.9 ; A nxiety F41.9 and 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 [facility] [address] [address] Oct, [facility] [address] [address] Oct, Diabetes E11.9 [facility] [address] [address] Oct, Bipolar I disorder, most recent episode (or current) mixed, moderate F31.62 [place] [address] [address] Sep, Chronic pain G89.29 [facility] [address] [address] Sep, Chronic pain G89.29 [place] [address] [address] Aug, Chronic pain G89.29 [facility] [address] [address] Jul, [facility] [address] [address] Jul, Diabetes E11.9 [facility] [address] [address] Jul, Chronic pain G89.29 [facility] [address] [address] Jul, Bipolar I disorder, most recent episode (or current) mixed, moderate F31.62 [place] [address] [address] Jun, Bipolar I disorder, most recent episode (or current) mixed, moderate F31.62 [place] [address] [address] Jun, [facility] [address] [address] Jun, Bipolar I disorder, most recent episode (or current) mixed, moderate F31.62 [place] [address] [address] 30 May, 2016 Insomnia, unspecified type G47.00 [place] [address] [address] May, Bipolar I disorder, most recent episode (or current) mixed, moderate F31.62 [place] [address] [address] 14 May, 2016 [place] [address] [address] May, Bipolar I disorder, most recent episode (or current) mixed, moderate F31.62 [place] [address] [address] May, Diabetes E11.9 and Essential hypertensio n I10 [place] [address] [address] Apr, Chronic pain G89.29 [place] [address] [address] Apr, Bipolar I disorder, most recent episode (or current) mixed, moderate F31.62 [place] [address] [address] Apr, [place] [address] [address] Apr, [place] [address] [address] Mar, Chronic pain G89.29 ; Headache, unspecif ied headache type R51 ; Neuropathy G62.9 ; Pain of right hip joint M25.551 and Essential hypertension I10 [place] [address] [address] Mar, Chronic pain G89.29 [place] [address] [address] Mar, Bipolar I disorder, most recent episode (or current) mixed, moderate F31.62 [place] [address] [place] [address] Feb, Bipolar I disorder, most recent episode (or current) mixed, moderate F31.62 and Insomnia, unspecified type G47.00 [place] [address] [address] Feb, Chronic pain G89.29 [place] [address] [address] Feb, Bipolar I disorder, most recent episode (or current) mixed, moderate F31.62 [place] [address] [address] January, Bipolar I disorder, most recent episode (or current) mixed, moderate F31.62 [place] [address] [address] January, Chronic pain G89.29 [place] [address] [address] January, Chronic pain G89.29 and Essential hypert ension I10 [place] [address] [address] January, Bipolar I disorder, most recent episode (or current) mixed, moderate F31.62 [place] [address] [address] Dec, [place] [address] [address] Dec, [place] [address] [address] Dec, [place] [address] [address] Dec, [place] [address] [address] Nov, Reactive airway disease J45.909 [place] [address] [address] Nov, [place] [address] [address] Nov, [place] [address] [address] 30 Nov, 2015 [place] [address] [address] Nov, [place] [address] [address] Nov, Onychomycosis B35.1 ; Hammertoe M20.40 ; [place] or callus L84 and DM neuro manif type II E11.[address] [address] Nov, Chronic pain G89.29 ; Leukocytosis D72.8 29 and Diabetes E11.9 [place] [address] [address] Nov, [place] [address] [address] Oct, Bronchitis J40 [place] [address] [address] Oct, [place] [address] [address] Oct, [place] [address] [address] Oct, Mastoiditis, unspecified laterality H70. 90 and Type 2 diabetes mellitus with complication E11.[address] [address] Sep, [address] [address] Sep, Dysuria R30.0 ; Cough R05 ; Benign prost atic hyperplasia with lower urinary tract symptoms, unspecified morphology N40.1 ; Hypokalemia E87.6 and Eustachian tube dysfunction, unspecified laterality H69.80 [facility] [address] [address] Sep, Moderate mixed bipolar I disorder F31.62 [facility] [address] [address] Sep, Hypokalemia E87.6 [facility] [address] [address] Sep, [facility] [address] [address] Sep, Upper respiratory tract infection, unspe cified type J06.9 [facility] [address] [address] Aug, [facility] [address] [address] Aug, Dysuria R30.0 [facility] [address] [address] Aug, [facility] [address] [address] Jul, [facility] [address] [address] Jul, [facility] [address] [address] Jul, [facility] [address] [address] Jul, [facility] [address] [address] Jun, [facility] [address] [address] Jun, [facility] [address] [address] Jun, [facility] [address] [address] May, [facility] [address] [place] [id number] [place] [address] May, Bipolar I disorder, most recent episode (or current) mixed, moderate 296.62 [facility] [address] [place] [id number] [place] [address] May, [facility] [address] [address] May, Bipolar I disorder, most recent episode (or current) mixed, moderate 296.62 and Major depressive disorder, recurrent episode, severe, specified as with psychotic behavior 296.34 [facility] [address] [address] May, Bipolar I disorder, most recent episode (or current) mixed, moderate 296.62 [facility] [address] [address] May, [facility] [address] [address] Apr, [facility] [address] [address] Apr, [facility] [address] [address] Apr, Unspecified disorder of kidney and urete r 593.9 and Diabetes mellitus type 2, uncontrolled 250.02 [facility] [address] [address] Apr, [facility] [address] [address] Apr, [facility] [address] [address] Apr, [facility] [address] [address] Apr, [facility] [address] [address] Apr, Diabetes mellitus type II, uncontrolled 250.02 [facility] [address] [address] Apr, [facility] [address] [address] Mar, [facility] [address] [address] Mar, [facility] [address] [address] Mar, [facility] [address] [address] Mar, Major depressive disorder, recurrent epi sode, severe, specified as with psychotic behavior 296.34 and Bipolar I disorder, most recent episode (or current) mixed, moderate 296.62 [facility] [address] [address] Mar, Diabetes 250.00 ; Anuria 788.5 ; Nausea and vomiting 787.01 and Diarrhea 787.91 [facility] [address] [address] Mar, Diabetes 250.00 [facility] [address] [address] Mar, [facility] [address] [address] Mar, Diabetes 250.00 [facility] [address] [address] Mar, [facility] [address] [address] Mar, [facility] [address] [address] Mar, [facility] [address] [address] Mar, [facility] [address] [address] Mar, Bipolar I disorder, most recent episode (or current) mixed, moderate 296.62 and Major depressive disorder, recurrent episode, severe, specified as with psychotic behavior 296.34 [place] [address] Mar, Magnesium deficiency 275.2 ; Hypokalemia 276.8 ; Nausea & vomiting 787.01 and Diabetes mellitus type 2, uncontrolled 250.[address] [address] Feb, [address] [address] Feb, Bipolar I disorder, most recent episode (or current) mixed, moderate 296.[address] [address] Feb, Nausea and vomiting 787.01 ; Left elbow pain 719.42 ; Anuria 788.5 and Diabetes 250.[address] [address] Feb, [address] [address] Feb, Hypopotassemia 276.8 and Hypokalemia [address] [address] Feb, Hypopotassemia 276.8 and Hypokalemia [address] [address] Feb, Seborrheic keratoses 702.[address] [address] Feb, Hypopotassemia 276.8 and Low magnesium l evels 275.[address] [address] January, [address] [address] January, [place] [id number] [place] [address] January, [facility] [address] [place] [id number] [place] [address] January, Scalp lesion 709.9 [facility] [address] [place] [id number] [place] [address] January, [facility] [address] [address] Dec, Tear of medial cartilage or meniscus of knee, current 836.0 and 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 [facility] [address] [place] [id number] [place] [address] Dec, [facility] [address] [address] Dec, [facility] [address] [place] [id number] [place] [address] Dec, Squamous cell carcinoma, 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 42 [facility] [address] [place] [id number] [place] [address] 14 Dec, 2014 [facility] [address] [address] Dec, [facility] [address] [place] [id number] [place] [address] Nov, [facility] [address] [place] [id number] [place] [address] Nov, [facility] [address] [place] [id number] [place] [address] Nov, [facility] [address] [place] [id number] [place] [address] Nov, [facility] [address] [place] [id number] [place] [address] Nov, [facility] [address] [place] [id number] [place] [address] Nov, [facility] [address] [place] [id number] [place] [address] Nov, 2014 [facility] [address] [id number] [place] [address] Nov, [facility] [address] [id number] [place] [address] Nov, [facility] [address] [id number] [place] [address] Nov, [facility] [address] [id number] [place] [address] Nov, [facility] [address] [id number] [place] [address] Nov, [facility] [address] [id number] [place] [address] Oct, 2014 [facility] [address] [id number] [place] [address] Oct, 2014 [facility] [address] [id number] [place] [address] Oct, 2014 [facility] [address] [id number] [place] [address] Oct, 2014 [facility] [address] [id number] [place] [address] Oct, 2014 [facility] [address] [id number] [place] [address] Oct, 2014 [facility] [address] [id number] [place] [address] Oct, 2014 [facility] [address] [id number] [place] [address] Oct, 2014 [facility] [address] [id number] [place] [address] Oct, 2014 [facility] [address] [id number] [place] [address] Sep, [facility] [address] [id number] [place] [address] Sep, [facility] [address] [id number] [place] [address] Sep, [facility] [address] [id number] [place] [address] Sep, [facility] [address] [id number] [place] [address] Sep, [facility] [address] [id number] [place] [address] Sep, [facility] [address] [id number] [place] [address] Sep, [facility] [address] [id number] [place] [address] Sep, [facility] [address] [id number] [place] [address] Sep, [facility] [address] [id number] [place] [address] Sep, [facility] [address] [id number] [place] [address] Sep, [facility] [address] [id number] [place] [address] Sep, [facility] [address] [id number] [place] [address] Sep, [facility] [address] [id number] [place] [address] Sep, [facility] [address] [id number] [place] [address] Sep, [facility] [address] [id number] [place] [address] Sep, [facility] [address] [id number] [place] [address] Aug, [facility] [address] [id number] [place] [address] Aug, [facility] [address] [id number] [place] [address] Aug, [facility] [address] [id number] [place] [address] Aug, [facility] [address] [facility] [id number] [facility] [address] Aug, [facility] [address] [facility] [id number] [place] [address] Aug, [facility] [address] [facility] [id number] [place] [address] Aug, [facility] [address] [facility] [id number] [place] [address] Aug, [facility] [address] [facility] [id number] [place] [address] Aug, [facility] [address] [id number] [place] [address] Aug, [facility] [address] [id number] [place] [address] Aug, [facility] [address] [facility] [place] [id number] Aug, [facility] [address] [id number] [place] [address] Aug, [facility] [address] [id number] [place] [address] Aug, [facility] [address] [id number] [place] [address] Aug, [facility] [address] [facility] [id number] [place] [address] Aug, [facility] [address] [id number] [place] [address] Aug, [facility] [address] [facility] [id number] [place] [address] Aug, [facility] [address] [id number] [place] [address] Aug, [facility] [address] [id number] [place] [address] 08 Aug, 2014 [facility] [address] [id number] [place] [address] Aug, [facility] [address] [id number] [place] [address] Aug, [facility] [address] [id number] [place] [address] Aug, [facility] [address] [id number] [place] [address] Aug, [facility] [address] [id number] [place] [address] Aug, [facility] [address] [id number] [place] [address] Aug, [facility] [address] [id number] [place] [address] Aug, [facility] [address] [id number] [place] [address] Aug, [facility] [address] [id number] [place] [address] Aug, [facility] [address] [id number] [place] [address] Aug, [facility] [address] [id number] [place] [address] Jul, [facility] [address] [id number] [place] [address] Jul, [facility] [address] [id number] [place] [address] Jul, [facility] [address] [id number] [place] [address] Jul, [facility] [address] [id number] [place] [address] Jul, [facility] [address] [id number] [place] [address] Jul, [facility] [address] [id number] [place] [address] Jul, [facility] [address] [id number] [place] [address] Jul, [facility] [address] [id number] [place] [address] Jul, [facility] [address] [id number] [place] [address] Jul, [facility] [address] [id number] [place] [address] Jun, [facility] [address] [id number] [place] [address] Jun, [facility] [address] [id number] [place] [address] Jun, [facility] [address] [id number] [place] [address] Jun, [facility] [address] [id number] [place] [address] Jun, [facility] [address] [id number] [place] [address] Jun, [facility] [address] [id number] [place] [address] Jun, [facility] [address] [id number] [place] [address] Jun, [facility] [address] [id number] [place] [address] Jun, [facility] [place] [facility] [address] [id number] [place] [address] Jun, [facility] [place] [facility] [address] [id number] [place] [address] 29 May, 2014 [facility] [place] [facility] [address] [id number] [place] [address] 29 May, 2014 [facility] [place] [facility] [address] [id number] [place] [address] May, [facility] [place] [facility] [address] [id number] [place] [address] 26 Sep, 2013 [facility] [place] [facility] [address] [id number] [facility] [place] [address] 17 May, 2013 [facility] [place] [facility] [address] [id number] [place] [address] 17 Sep, 2013 [facility] [place] [facility] [address] [id number] [place] [address] 15 Sep, 2013 [facility] [place] [facility] [address] [facility] [id number] [place] [address] 15 Sep, 2013 [facility] [place] [facility] [address] [id number] [place] [address] 15 May, 2013 [facility] [place] [facility] [address] [id number] [place] [address] 15 May, 2013 [facility] [place] [facility] [address] [id number] [place] [address] 10 May, 2013 [facility] [place] [facility] [address] [id number] [place] [address] 10 May, 2013 [facility] [place] [facility] [address] [id number] [place] [address] 09 May, 2013 [facility] [place] [facility] [address] [id number] [place] [address] 09 May, 2013 [facility] [place] [facility] [address] [id number] [place] [address] 04 May, 2013 [facility] [place] [facility] [address] [id number] [place] [address] 04 May, 2013 [facility] [place] [facility] [address] [id number] [place] [address] Apr, [facility] [place] [facility] [address] [id number] [place] [address] Apr, [facility] [place] [facility] [address] [id number] [place] [address] Apr, 2013 [facility] [place] [facility] [address] [id number] [place] [address] Apr, [facility] [place] [facility] [address] [id number] [place] [address] Apr, [facility] [place] [facility] [address] [facility] [id number] [facility] [place] [address] Apr, [facility] [place] [facility] [address] [facility] [id number] [facility] [place] [address] Apr, [facility] [place] [facility] [address] [facility] [id number] [place] [address] Apr, [facility] [place] [facility] [address] [facility] [id number] [place] [address] Apr, [facility] [place] [facility] [address] [facility] [id number] [facility] [place] [address] Apr, [facility] [place] [facility] [address] [id number] [facility] [address] Apr, [facility] [address] [id number] [facility] [place] [address] Apr, [facility] [address] [facility] [id number] [facility] [place] [address] Apr, [facility] [address] [id number] [facility] [place] [address] Apr, [facility] [address] [id number] [place] [address] Apr, [facility] [address] [id number] [facility] [place] [address] Mar, [facility] [address] [facility] [id number] [facility] [address] Mar, [facility] [address] [id number] [facility] [address] Mar, [facility] [address] [facility] [id number] [facility] [place] [address] Mar, [facility] [address] [id number] [facility] [address] Mar, [facility] [address] [facility] [id number] [place] [address] Mar, 2013 [facility] [address] [facility] [id number] [place] [address] Mar, 2013 [facility] [address] [facility] [id number] [place] [address] Mar, 2013 [facility] [address] [id number] [place] [address] Mar, 2013 [facility] [address] [facility] [id number] [place] [address] Mar, 2013 [facility] [address] [id number] [place] [address] Mar, 2013 [facility] [address] [id number] [place] [address] Mar, 2013 [facility] [address] [id number] [place] [address] Mar, 2013 [facility] [address] [id number] [place] [address] Mar, 2013 [facility] [address] [id number] [place] [address] Mar, 2013 [facility] [address] [id number] [place] [address] Mar, 2013 [facility] [address] [id number] [place] [address] Mar, 2013 [facility] [address] [id number] [place] [address] Mar, 2013 [facility] [address] [facility] [id number] [place] [address] Feb, [facility] [address] [id number] [place] [address] Feb, [facility] [address] [id number] [place] [address] Feb, [facility] [address] [id number] [place] [address] Feb, [facility] [address] [id number] [place] [address] Feb, [facility] [address] [facility] [id number] [facility] [address] Feb, [facility] [address] [facility] [id number] [place] [address] Feb, [facility] [address] [facility] [id number] [facility] [address] Feb, [facility] [address] [facility] [id number] [facility] [address] Feb, [facility] [address] [id number] [place] [address] Feb, [facility] [address] [id number] [place] [address] Feb, [facility] [address] [id number] [place] [address] Feb, [facility] [address] [facility] [id number] [place] [address] Feb, [facility] [address] [id number] [place] [address] Feb, [facility] [address] [id number] [place] [address] January, [facility] [address] [id number] [place] [address] January, [facility] [address] [facility] [id number] [place] [address] January, [facility] [address] [id number] [place] [address] January, [facility] [address] [id number] [place] [address] January, [facility] [address] [id number] [place] [address] January, [facility] [address] [id number] [facility] [address] January, [facility] [address] [id number] [facility] [address] January, [facility] [address] [facility] [id number] [place] [address] January, [facility] [address] [id number] [place] [address] January, [facility] [address] [id number] [place] [address] January, [facility] [address] [facility] [id number] [facility] [address] January, [facility] [address] [id number] [place] [address] January, [facility] [address] [id number] [place] [address] January, [facility] [address] [id number] [place] [address] Dec, [facility] [address] [facility] [id number] [facility] [address] Dec, [facility] [address] [id number] [place] [address] Dec, [facility] [address] [id number] [place] [address] Dec, [facility] [address] [id number] [facility] [place] [address] Dec, [facility] [address] [facility] [id number] [facility] [address] Dec, [facility] [address] [id number] [facility] [address] Dec, [facility] [address] [id number] [place] [address] Dec, [facility] [address] [id number] [place] [address] Dec, [facility] [address] [facility] [id number] [place] [address] Dec, [facility] [address] [id number] [place] [address] Nov, [facility] [address] [id number] [place] [address] Nov, [facility] [address] [id number] [place] [address] Nov, [facility] [address] [id number] [place] [address] Nov, [facility] [address] [id number] [place] [address] Nov, [facility] [address] [id number] [place] [address] Nov, [facility] [address] [id number] [place] [address] Nov, [facility] [address] [id number] [place] [address] Nov, [facility] [address] [id number] [place] [address] Nov, [facility] [address] [id number] [place] [address] Nov, [facility] [address] [id number] [place] [address] Oct, [facility] [address] [id number] [place] [address] Oct, [facility] [address] [id number] [place] [address] Oct, [facility] [address] [id number] [place] [address] Oct, [facility] [address] [id number] [place] [address] Oct, [facility] [address] [id number] [place] [address] Oct, [facility] [address] [id number] [place] [address] Oct, [facility] [address] [id number] [place] [address] Oct, [facility] [address] [id number] [place] [address] Oct, [facility] [address] [id number] [place] [address] Oct, [facility] [address] [id number] [place] [address] Oct, [facility] [address] [id number] [place] [address] Oct, [facility] [address] [id number] [place] [address] Oct, [facility] [address] [id number] [place] [address] Oct, [facility] [address] [id number] [place] [address] Sep, [facility] [address] [id number] [place] [address] Sep, [facility] [address] [id number] [place] [address] Sep, [facility] [address] [id number] [place] [address] Sep, [facility] [address] [id number] [place] [address] Sep, [facility] [address] [id number] [place] [address] Sep, [facility] [address] [id number] [place] [address] Sep, [facility] [address] [id number] [place] [address] Sep, [facility] [address] [id number] [place] [address] 08 Sep, 2013 [facility] [address] [id number] [place] [address] 08 Sep, 2013 [facility] [address] [id number] [place] [address] Aug, [facility] [address] [id number] [place] [address] Aug, [facility] [address] [id number] [place] [address] Jul, [facility] [address] [id number] [place] [address] Jul, [facility] [address] [id number] [place] [address] Jul, [facility] [address] [id number] [place] [address] Jul, [facility] [address] [id number] [place] [address] Jul, [facility] [address] [id number] [place] [address] Jul, [facility] [address] [id number] [place] [address] Jul, [facility] [address] [id number] [place] [address] Jul, [facility] [address] [id number] [place] [address] Jul, [facility] [address] [id number] [place] [address] Jul, [facility] [address] [id number] [place] [address] Jul, [facility] [address] [id number] [place] [address] 06 Jul, 2013 [facility] [address] [id number] [place] [address] Jul, 2012 [facility] [address] [id number] [place] [address] Jul, 2012 [facility] [address] [id number] [place] [address] Jul, 2012 [facility] [address] [id number] [place] [address] Jul, 2012 [facility] [address] [id number] [place] [address] Jul, 2012 [facility] [address] [id number] [place] [address] Jul, 2012 [facility] [address] [id number] [place] [address] Jul, 2012 [facility] [address] [id number] [place] [address] Jun, 2012 [facility] [address] [id number] [place] [address] Jun, 2012 [facility] [address] [id number] [place] [address] Jun, 2012 [facility] [address] [id number] [place] [address] Jun, 2012 [facility] [address] [id number] [place] [address] Jun, 2012 [facility] [address] [id number] [place] [address] 16 Jun, 2012 [facility] [address] [id number] [place] [address] 10 Jun, 2012 [facility] [address] [id number] [place] [address] 10 Jun, 2012 [facility] [address] [id number] [place] [address] Jun, 2012 [facility] [address] [id number] [place] [address] Jun, 2012 [facility] [address] [id number] [place] [address] Jun, [facility] [address] [id number] [place] [address] May, 2012 [facility] [address] [id number] [place] [address] May, [facility] [address] [id number] [place] [address] May, 2012 [facility] [address] [id number] [place] [address] 17 May, 2012 [facility] [address] [id number] [place] [address] May, [facility] [address] [id number] [place] [address] May, [facility] [address] [id number] [place] [address] May, [facility] [address] [id number] [place] [address] May, [facility] [address] [id number] [place] [address] Apr, [facility] [address] [id number] [place] [address] Apr, [facility] [address] [id number] [place] [address] Apr, [facility] [address] [id number] [place] [address] Apr, [facility] [address] [id number] [place] [address] Apr, [facility] [address] [id number] [place] [address] Mar, [facility] [address] [id number] [place] [address] Mar, [facility] [address] [id number] [place] [address] Mar, [facility] [address] [id number] [place] [address] Mar, [facility] [address] [id number] [place] [address] Mar, [facility] [address] [id number] [place] [address] Mar, [facility] [address] [id number] [place] [address] Mar, [facility] [address] [id number] [place] [address] Mar, [facility] [address] [id number] [place] [address] Feb, [facility] [address] [id number] [place] [address] Feb, [facility] [address] [id number] [place] [address] January, [facility] [address] [id number] [place] [address] January, [facility] [address] [id number] [place] [address] Dec, [facility] [address] [id number] [place] [address] Dec, [facility] [address] [id number] [place] [address] Nov, [facility] [address] [id number] [place] [address] Nov, [facility] [address] [id number] [place] [address] Nov, [facility] [address] [id number] [place] [address] Nov, [facility] [address] [id number] [place] [address] Oct, [facility] [address] [id number] [place] [address] Oct, [facility] [address] [id number] [place] [address] Oct, [facility] [address] [id number] [place] [address] Oct, [facility] [address] [id number] [place] [address] 16 Oct, 2012 [facility] [address] [id number] [place] [address] 14 Oct, 2012 [facility] [address] [id number] [place] [address] 08 Oct, 2012 [facility] [address] [id number] [place] [address] 07 Oct, 2012 [facility] [address] [id number] [place] [address] Oct, [facility] [address] [id number] [place] [address] Sep, [facility] [address] [id number] [place] [address] Sep, [facility] [address] [id number] [place] [address] Sep, [facility] [address] [id number] [place] [address] Sep, [facility] [address] [id number] [place] [address] Sep, [facility] [address] [id number] [place] [address] Sep, [facility] [id number] [place] [address] Sep, [facility] [address] [id number] [place] [address] Sep, [facility] [address] [id number] [place] [address] Aug, [facility] [address] [id number] [place] [address] Aug, [facility] [address] [id number] [place] [address] Aug, [facility] [address] [id number] [place] [address] Aug, [facility] [address] [id number] [place] [address] Aug, [facility] [address] [id number] [place] [address] Aug, [facility] [address] [id number] [place] [address] Aug, [facility] [address] [id number] [place] [address] Aug, [facility] [id number] [place] [address] Jul, [facility] [address] [id number] [place] [address] Jul, [facility] [address] [id number] [place] [address] Jul, [facility] [address] [id number] [place] [address] Jul, [facility] [address] [id number] [place] [address] Jul, [facility] [address] [id number] [place] [address] Jul, [facility] [address] [id number] [place] [address] Jun, [facility] [place] [facility] [id number] [place] [address] Jun, [facility] [place] [facility] [address] [id number] [place] [address] Jun, [facility] [place] [facility] [address] [id number] [place] [address] Jun, [facility] [place] [facility] [address] [facility] [id number] [place] [address] Jun, [facility] [place] [facility] [address] [facility] [id number] [facility] [place] [address] Jun, [facility] [place] [facility] [address] [id number] [place] [address] Jun, [facility] [place] [facility] [address] [id number] [place] [address] Jun, [facility] [place] [facility] [address] [facility] [id number] [place] [address] Jun, [facility] [place] [facility] [address] [id number] [place] [address] 26 May, 2012 [facility] [place] [facility] [address] [id number] [place] [address] 24 May, 2012 [facility] [place] [facility] [address] [id number] [place] [address] May, [facility] [place] [facility] [address] [id number] [place] [address] 30 Apr, 2012 [facility] [place] [facility] [address] [id number] [place] [address] Apr, [facility] [place] [facility] [address] [id number] [place] [address] Apr, [facility] [place] [facility] [address] [id number] [place] [address] Apr, [facility] [place] [facility] [address] [facility] [id number] [place] [address] Apr, [facility] [place] [facility] [address] [facility] [id number] [place] [address] Apr, [facility] [place] [facility] [address] [id number] [place] [address] Mar, [facility] [place] [facility] [address] [id number] [place] [address] Mar, [facility] [place] [facility] [address] [id number] [place] [address] Mar, [facility] [place] [facility] [address] [id number] [place] [address] Mar, [facility] [place] [facility] [address] [id number] [place] [address] Feb, [facility] [place] [facility] [address] [id number] [place] [address] Feb, [facility] [place] [facility] [address] [id number] [place] [address] Feb, [facility] [place] [facility] [address] [id number] [place] [address] Feb, [facility] [place] [facility] [address] [id number] [place] [address] Feb, [facility] [place] [facility] [address] [id number] [place] [address] January, [facility] [place] [facility] [address] [id number] [place] [address] January, [facility] [place] [facility] [address] [id number] [place] [address] January, [facility] [place] [facility] [address] [id number] [place] [address] January, [facility] [place] [facility] [address] [id number] [place] [address] January, [facility] [place] [facility] [address] [id number] [place] [address] January, [facility] [place] [facility] [address] [id number] [place] [address] Dec, [facility] [place] [facility] [address] [id number] [place] [address] Dec, [facility] [place] [facility] [address] [id number] [place] [address] Dec, [facility] [place] [facility] [address] [id number] [place] [address] Dec, [facility] [place] [facility] [address] [id number] [place] [address] Dec, [facility] [place] [facility] [address] [id number] [place] [address] 27 Nov, 2011 [facility] [place] [facility] [address] [id number] [place] [address] 14 Nov, 2011 [facility] [place] [facility] [address] [id number] [place] [address] Nov, [facility] [place] [facility] [address] [id number] [place] [address] 07 Nov, 2011 [facility] [place] [facility] [address] [id number] [place] [address] 29 Oct, 2011 [facility] [place] [facility] [address] [id number] [place] [address] 28 Oct, 2011 [facility] [place] [facility] [address] [id number] [place] [address] 24 Oct, 2011 [facility] [address] [id number] [place] [address] 13 Oct, 2011 [facility] [address] [id number] [place] [address] 08 Oct, 2011 [facility] [address] [id number] [place] [address] Sep, [facility] [address] [id number] [place] [address] Sep, [facility] [address] [id number] [place] [address] Sep, [facility] [address] [id number] [place] [address] Sep, [facility] [address] [id number] [place] [address] Sep, [facility] [address] [id number] [place] [address] Sep, [facility] [address] [id number] [place] [address] Aug, [facility] [address] [facility] [id number] [facility] [place] [address] Aug, [facility] [address] [facility] [id number] [place] [address] Aug, [facility] [address] [id number] [place] [address] Jul, [facility] [address] [id number] [place] [address] Jul, [facility] [address] [facility] [id number] [facility] [place] [address] Jul, [facility] [address] [id number] [place] [address] Jul, [facility] [address] [id number] [place] [address] Jun, [facility] [address] [id number] [place] [address] Jun, [facility] [address] [id number] [place] [address] Jun, [facility] [address] [id number] [place] [address] Jun, [facility] [address] [id number] [place] [address] Jun, [facility] [address] [id number] [place] [address] Jun, [facility] [address] [id number] [place] [address] Mar, [facility] [address] [id number] [place] [address] Dec, [facility] [address] [id number] [place] [address] Dec, [facility] [address] [id number] [place] [address] Nov, [facility] [address] [id number] [place] [address] 16 Nov, 2010 [facility] [address] [id number] [place] [address] 10 Sep, 2010 [facility] [address] [id number] [place] [address] 31 Aug, 2010 [facility] [address] [id number] [place] [address] 29 Aug, 2010 [facility] [address] [id number] [place] [address] 29 Aug, 2010 [facility] [address] [id number] [place] [address] 29 Aug, 2010 [facility] [address] [id number] [place] [address] 27 Aug, 2010 [facility] [address] [id number] [place] [address] 14 Aug, 2010 [facility] [address] [id number] [place] [address] 08 Aug, 2010 [facility] [address] [id number] [place] [address] 08 Aug, 2010 [facility] [address] [id number] [place] [address] 07 Aug, 2010 [facility] [address] [id number] [place] [address] 06 Aug, 2010 [facility] [address] [id number] [place] [address] 06 Aug, 2010 [facility] [address] [id number] [place] [address] Aug, [facility] [address] [id number] [place] [address] 30 Jul, 2010 [facility] [address] [id number] [place] [address] Jul, [facility] [address] [id number] [place] [address] 30 Jul, 2010 [facility] [address] [id number] [place] [address] Jul, [facility] [address] [id number] [place] [address] Jul, [facility] [address] [id number] [place] [address] Jul, [facility] [address] [id number] [place] [address] Jun, [facility] [address] [id number] [place] [address] Jun, [facility] [address] [id number] [place] [address] Jun, [facility] [address] [id number] [place] [address] Jun, [facility] [address] [id number] [place] [address] 16 Apr, 2010 [facility] [address] [id number] [place] [address] Mar, [facility] [address] [id number] [place] [address] Feb, [facility] [address] [id number] [place] [address] January, [facility] [address] [id number] [place] [address] Dec, [facility] [address] [id number] [place] [address] Nov, [facility] [address] [id number] [place] [address] Aug, [facility] [address] [id number] [place] [address] Aug, [facility] [address] [id number] [place] [address] 07 Aug, 2009 [facility] [address] [id number] [place] [address] Jul, [facility] [address] [id number] [place] [address] Jul, [facility] [address] [id number] [place] [address] Jul, [facility] [address] [id number] [place] [address] Jun, [facility] [id number] [place] [address] Jun, [facility] [address] [id number] [place] [address] Jun, [facility] [address] [id number] [place] [address] Jun, [facility] [address] [id number] [place] [address] Jun, [facility] [id number] [place] [address] Jun, [facility] [address] [id number] [place] [address] Apr, [facility] [address] [id number] [place] [address] Apr, [facility] [address] [id number] [place] [address] Feb, [facility] [id number] [place] [address] January, [facility] [address] [id number] [place] [address] Dec, IMMUNIZATIONS No Known Immunizations SOCIAL HISTORY [...] tunnel release (Left) 2000 Surgical History EGD ([facility]) 2009 Surgical History colonoscopy 2009 ([facility]), 2013 ([place] ) Surgical History heart cath: CAD w/ [...] inability to urinate 09/16/15 Hospitalization History [facility] inpatient mental health ea rly 2000's Hospitalization History hyperkalemia 10/2017 Hospitalization History fluid in lung
--- OUTSIDE RECORDS SUMMARY | 2020-03-01 16:52 | XMS REPORT ---
Author Michele Fuentes Organization [facility] Address [address] [place] [address] Care Team Providers Care [employer] Supervisor Name Role Phone ROSELINE LUIS Unavailable PROBLEMS Type Condition ICD9-CM Code [id number] Code Onset Dates Condition S tatus SNOMED Code Problem DM neuro manif type II E11.49 Active 95119296 Problem Chronic pain G89.29 Active 0207633 1 Problem Diabetes E11.9 Active 88066454 Problem Reactive airway disease J45.909 Active 617186776462 Problem Leukocytosis D72.829 Active 0775998 06 Problem Insomnia, unspecified type G47.00 Act sharon 033938286 Problem Bipolar I disorder, most recent episode (or curr ent) mixed, moderate F31.62 Active 10013162 Problem Primary osteoarthritis of right knee M17.11 Active 968871184119557 Problem Cough R05 Active 13793485 Problem Pure hypercholesterolemia E78.00 Acti ve 924930196 Problem Dysuria R30.0 Active 75743003 Problem Benign prostatic hyperplasia with lower urinary tract symptoms, unspecified morphology N40.1 Active 85027 6007 Problem Eustachian tube dysfunction, unspecified laterality H69.80 Active 83098492 Problem Polyneuropathy associated with underlying disease G63 Active 527373056 Problem Diabetic polyneuropathy associated with type 2 d iabetes mellitus E11.42 Active 93750646 Problem Anemia of chronic illness D63.8 Acti ve 513479150 Problem Chronic lymphocytic leukemia C91.10 A ctive 40445088 Problem Bilateral primary osteoarthritis of knee M17.0 Active 781548567 Problem 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 Active 941910855 Problem Eye exam abnormal R93.8 Active 16 3049851 Problem Retinal edema H35.81 Active 225822 6 Problem Lymphocytosis D72.820 Active 380900 09 Problem Bipolar disorder, in partial remission, most rec ent episode depressed F31.75 Active 36010046 Problem Hypokalemia E87.6 Active 62445621 Problem Falling R29.6 Active 020373819 Problem Pressure ulcer of other site, stage 3 L89.893 Active 493752883 Problem Other iron deficiency anemia D50.8 A ctive 34969664 Problem Mild cognitive impairment G31.84 Acti ve 918332960 Problem Skin cancer C44.90 Active 58742395 7 Problem 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 Active 300667641 Problem Morbid obesity E66.01 Active 22571 6002 Problem Mood disorder F39 Active 841564 05 Problem Anxiety F41.9 Active 39360685 Problem Essential hypertension I10 Active 07015777 Problem Bipolar disorder F31.9 Active 137 06669 Problem Chronic diastolic (congestive) heart failure I50.3 2 Active 096829603 Problem Psychophysiological insomnia F51.04 A ctive 485850547 Problem Type 2 diabetes mellitus with diabetic neuropathy, uns pecified E11.40 Active 02247509 ALLERGIES No Information ENCOUNTERS Encounter Location Date Diagnosis [place] [address] [address] Oct, [place] [address] [address] Oct, [place] [address] [address] Sep, [place] [address] [address] Sep, Mood disorder F39 [place] [address] [address] Sep, Bipolar disorder, in partial remission, most recent episode depressed F31.75 and Mild cognitive impairment G31.84 [place] [address] [address] Sep, Mood disorder F39 [place] [address] [address] Sep, [place] [address] [address] Sep, Mood disorder F39 [place] [address] [address] Sep, [facility] [address] [id number] [place] [address] Aug, Mood disorder F39 [facility] [address] [id number] [place] [address] Aug, [facility] [address] [place] [id number] [place] [address] Aug, [facility] [address] [id number] [place] [address] Aug, [facility] [address] [id number] [place] [address] Aug, [facility] [address] [id number] [place] [address] Aug, [facility] [address] [place] [id number] [place] [address] Aug, [facility] [address] [place] [id number] [place] [address] Aug, [facility] [address] [id number] [place] [address] Aug, Essential hypertension I10 [facility] [address] [place] [id number] [place] [address] Aug, Bipolar disorder, in partial remission, most recent episode depressed F31.75 and Mild cognitive impairment G31.84 [facility] [address] [place] [id number] [place] [address] Aug, Mood disorder F39 [facility] [address] [place] [id number] [place] [address] Aug, [facility] [address] [place] [id number] [place] [address] Aug, Bipolar disorder, in partial remission, most recent episode depressed F31.75 and Mild cognitive impairment G31.84 [facility] [address] [place] [id number] [place] [address] Jul, Bipolar disorder, in partial remission, most recent episode depressed F31.75 and Mild cognitive impairment G31.84 [facility] [address] [address] Jul, Psychophysiological insomnia F51.04 [facility] [address] [address] Jul, [facility] [address] [address] Jul, [facility] [address] [address] Jul, [facility] [address] [address] Jul, [facility] [address] [address] Jul, [facility] [address] [address] Jul, [facility] [address] [address] Jul, Bipolar disorder, in partial remission, most recent episode depressed F31.75 and Mild cognitive impairment G31.84 [facility] [address] [address] Jul, Chronic pain G89.29 ; Diabetes E11.9 ; E ssential hypertension I10 ; Ill feeling R68.89 ; Local infection of the skin and subcutaneous tissue, unspecified L08.9 and Other injury of unspecified body region, initial encounter T14.8XXA [facility] [address] [address] Jun, Bipolar disorder, in partial remission, most recent episode depressed F31.75 and Mild cognitive impairment G31.84 [facility] [address] [address] Jun, [facility] [address] [address] Jun, Bipolar disorder, in partial remission, most recent episode depressed F31.75 and Mild cognitive impairment G31.84 [facility] [address] [address] Jun, Psychophysiological insomnia F51.04 [facility] [address] [address] Jun, Psychophysiological insomnia F51.04 ; Ch ronic pain G89.29 ; Bipolar I disorder, most recent episode (or current) mixed, moderate F31.62 ; 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 ; Polyneuropathy associated with underlying disease G63 ; Type 2 diabetes mellitus with diabetic neuropathy, unspecified E11.40 ; 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 and Hyperglycemia R73.9 [place] [address] [address] Jun, Bipolar disorder, in partial remission, most recent episode depressed F31.75 and Mild cognitive impairment G31.84 [place] [address] [address] Jun, [place] [address] [address] Jun, Bipolar disorder F31.9 [place] [address] [address] May, Bipolar disorder, in partial remission, most recent episode depressed F31.75 and Mild cognitive impairment G31.84 [place] [address] [address] May, [place] [address] [address] Apr, Chronic pain G89.29 and Bipolar disorder F31.9 [facility] [address] [address] Mar, Bipolar disorder F31.9 and Chronic pain G89.29 [facility] [address] [address] Feb, Bipolar disorder F31.9 [place] [address] [address] 17 Feb, 2019 Cellulitis of right upper extremity L03. 113 and Skin abrasion T14.8XXA [facility] [address] [address] Feb, Bipolar disorder, in partial remission, most recent episode depressed F31.75 and Mild cognitive impairment G31.84 [place] [address] [address] Feb, Chronic pain G89.29 [place] [address] [address] Feb, Bipolar disorder, in partial remission, most recent episode depressed F31.75 and Mild cognitive impairment G31.84 [place] [address] [address] January, Bipolar disorder, in partial remission, most recent episode depressed F31.75 and Mild cognitive impairment G31.84 [place] [address] [address] January, Chronic pain G89.29 and Bipolar disorder F31.9 [place] [address] [address] January, Bipolar disorder, in partial remission, most recent episode depressed F31.75 and Mild cognitive impairment G31.84 [place] [address] [address] Dec, [place] [address] [address] Dec, Chronic pain G89.29 and Bipolar disorder F31.9 [place] [address] [address] Dec, Edema of both lower extremities R60.0 [place] [address] [address] Dec, Bipolar disorder F31.9 [place] [address] [address] Dec, Bipolar disorder, in partial remission, most recent episode depressed F31.75 and Mild cognitive impairment G31.84 [place] [address] [address] Nov, [place] [address] [address] Nov, Chronic pain G89.29 [place] [address] [address] Nov, Bipolar disorder, in partial remission, most recent episode depressed F31.75 and Mild cognitive impairment G31.84 [place] [address] [address] Nov, Bipolar disorder F31.9 [place] [address] [address] Nov, Encounter for Medicare annual wellness e [...] unspecified morphology N40.1 and Essential hypertension I10 [place] [address] [address] Oct, Chronic pain G89.29 [place] [address] [address] Oct, Diabetes E11.9 [place] [address] [address] Oct, Bipolar I disorder, most recent episode (or current) mixed, moderate F31.62 and Mild cognitive impairment G31.84 [place] [address] [address] Oct, Bipolar I disorder, most recent episode (or current) mixed, moderate F31.62 and Mild cognitive impairment G31.84 [place] [address] [address] Sep, Bipolar I disorder, most recent episode (or current) mixed, moderate F31.62 and Mild cognitive impairment G31.84 [place] [address] [address] Sep, [address] [address] Sep, Diabetes E11.9 ; Hypoxia R09.02 ; Hyperg lycemia R73.9 ; Therapeutic drug monitoring Z51.81 ; BMI 50.0-59.9, adult Z68.43 and Skin cancer C44.[address] [address] Sep, Chronic pain G89.[address] [address] Sep, Bipolar I disorder, most recent episode (or current) mixed, moderate F31.62 [place] [address] [address] Sep, [place] [address] [address] Sep, [place] [address] [address] Aug, Chronic pain G89.[address] [address] Aug, Bipolar I disorder, most recent episode (or current) mixed, moderate F31.62 [place] [address] Aug, Bipolar I disorder, most recent episode (or current) mixed, moderate F31.62 and Mild cognitive impairment G31.[address] [address] Jul, [facility] [address] [place] [id number] [place] [address] Jul, Chronic pain G89.29 [facility] [address] [place] [id number] [place] [address] Jul, Bipolar I disorder, most recent episode (or current) mixed, moderate F31.62 and Mild cognitive impairment G31.84 [facility] [address] [place] [id number] [place] [address] Jul, Bipolar I disorder, most recent episode (or current) mixed, moderate F31.62 and MCI (mild cognitive impairment) G31.84 [facility] [address] [address] Jul, [facility] [address] [address] Jul, [place] [address] [place] [id number] [place] [address] Jul, Bipolar I disorder, most recent episode (or current) mixed, moderate F31.62 [facility] [address] [place] [address] [place] [address] Jul, Chronic pain G89.29 [facility] [address] [place] [id number] [place] [address] Jun, Bipolar I disorder, most recent episode (or current) mixed, moderate F31.62 [facility] [address] [place] [id number] [place] [address] Jun, Pre-procedure lab exam Z01.812 [facility] [address] [place] [id number] [place] [address] Jun, [facility] [address] [facility] [address] Jun, [facility] [address] [place] [id number] [place] [address] Jun, [facility] [address] [address] Jun, Forgetfulness R68.89 ; Pre-syncope R55 ; Localized edema R60.0 ; Other iron deficiency anemia D50.8 and BMI 50.0-59.9, adult Z68.43 [place] [address] [address] Jun, Chronic pain G89.29 [place] [address] [address] Jun, Chronic pain G89.[address] [address] Jun, Bipolar I disorder, most recent episode (or current) mixed, moderate F31.[address] [address] May, Chronic pain G89.[address] [address] Apr, [address] [address] Apr, Chronic pain G89.[address] [address] Apr, Primary osteoarthritis of right knee M17 .[address] [address] Mar, [address] [address] Mar, BMI 50.0-59.9, adult Z68.43 and Bipolar disorder, in partial remission, most recent episode depressed F31.[address] [address] Mar, Diabetes E11.9 ; Pure hypercholesterolem ia E78.00 ; Essential hypertension I10 ; Nausea with vomiting, unspecified R11.2 and Headache, unspecified headache type R51 [address] [address] Mar, Bipolar I disorder, most recent episode (or current) mixed, moderate F31.62 [place] [address] [address] Mar, Bipolar I disorder, most recent episode (or current) mixed, moderate F31.62 [place] [address] [address] Mar, Chronic pain G89.29 [place] [address] [address] Mar, Bipolar I disorder, most recent episode (or current) mixed, moderate F31.62 [place] [address] [address] Feb, Bipolar I disorder, most recent episode (or current) mixed, moderate F31.62 [place] [address] [address] Feb, Chronic pain G89.29 [place] [address] [address] Feb, Decubitus ulcer of right foot, stage 3 L 89.893 and BMI 50.0-59.9, adult Z68.43 [place] [address] [address] Feb, Bipolar I disorder, most recent episode (or current) mixed, moderate F31.62 [place] [address] [address] Feb, [place] [address] [address] January, [place] [address] [address] January, Chronic pain G89.29 [place] [address] [address] January, Bipolar I disorder, most recent episode (or current) mixed, moderate F31.62 [place] [address] [address] January, Bipolar I disorder, most recent episode (or current) mixed, moderate F31.62 [place] [address] [address] Dec, Bipolar I disorder, most recent episode (or current) mixed, moderate F31.62 and BMI 50.0-59.9, adult Z68.[address] [address] Dec, Bipolar I disorder, most recent episode (or current) mixed, moderate F31.[address] [address] Dec, Chronic pain G89.[address] [address] Dec, DM neuro manif type II E11.49 ; Right fl ank pain R10.9 ; 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 ; Encounter for medication monitoring Z51.81 and BMI 50.0-59.9, adult Z68.[address] [address] Dec, Bipolar I disorder, most recent episode (or current) mixed, moderate F31.[address] [address] Nov, Bipolar I disorder, most recent episode (or current) mixed, moderate F31.[address] [address] Nov, Chronic pain G89.[address] [address] Nov, Bipolar I disorder, most recent episode (or current) mixed, moderate F31.[address] [address] Nov, Hypokalemia E87.[id number] [place] [address] Nov, Bipolar I disorder, most recent episode (or current) mixed, moderate F31.62 [place] [address] [address] Oct, Chronic pain G89.29 [place] [address] [address] Oct, BMI 50.0-59.9, adult Z68.43 and Bipolar I disorder, most recent episode (or current) mixed, moderate F31.62 [place] [address] [address] Oct, Bipolar I disorder, most recent episode (or current) mixed, moderate F31.62 [place] [address] [address] Oct, [place] [address] [address] Oct, Hypokalemia E87.6 [place] [address] [address] Oct, DM neuro manif type II E11.49 [place] [address] [address] Oct, Bipolar I disorder, most recent episode (or current) mixed, moderate F31.62 [place] [address] [address] Oct, Bipolar I disorder, most recent episode (or current) mixed, moderate F31.62 [place] [address] [address] 14 Oct, 2017 Hyperkalemia E87.5 ; Falling R29.6 ; BMI 50.0-59.9, adult Z68.43 and Acute left ankle pain M25.572 [place] [address] [address] Oct, DM neuro manif type II E11.49 [place] [address] [address] Oct, [place] [address] [address] Sep, Chronic pain G89.29 [place] [address] [address] Sep, [place] [address] [address] Sep, Bilateral primary osteoarthritis of knee M17.[address] [address] Sep, Generalized edema R60.[address] [address] Sep, Bipolar I disorder, most recent episode (or current) mixed, moderate F31.[address] [address] Sep, Hypoxia R09.02 ; Other hypervolemia E87. 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 ; Anemia of chronic illness D63.8 and BMI 50.0-59.9, adult Z68.[address] [address] Sep, [address] [address] Sep, Bipolar I disorder, most recent episode (or current) mixed, moderate F31.[address] [address] Aug, Chronic pain G89.29 [place] [address] [address] Aug, Generalized edema R60.1 [place] [address] [address] Aug, [place] [address] [address] Aug, [place] [address] [place] [address] Aug, Bipolar I disorder, most recent episode (or current) mixed, moderate F31.62 [place] [address] [place] [address] Aug, Bipolar I disorder, most recent episode (or current) mixed, moderate F31.62 [place] [address] [address] Aug, Chronic pain G89.29 [place] [address] Jul, Bipolar I disorder, most recent episode (or current) mixed, moderate F31.62 [place] [address] [address] Jul, Bipolar I disorder, most recent episode (or current) mixed, moderate F31.62 and BMI 60.0-69.9, adult Z68.[address] [address] Jul, Bipolar I disorder, most recent episode (or current) mixed, moderate F31.62 [place] [address] [address] Jul, Chronic pain G89.29 [place] [address] [address] Jul, Bipolar I disorder, most recent episode (or current) mixed, moderate F31.[address] [address] Jun, Polyneuropathy associated with underlyin g disease G63 and Diabetes E11.[address] [address] Jun, Bipolar I disorder, most recent episode (or current) mixed, moderate F31.62 [facility] [address] [address] 09 Jun, 2017 Chronic pain G89.29 [facility] [address] [address] May, Bipolar I disorder, most recent episode (or current) mixed, moderate F31.62 [facility] [address] [address] May, Bipolar I disorder, most recent episode (or current) mixed, moderate F31.62 [facility] [address] [address] 20 May, 2017 Diabetic polyneuropathy associated with type 2 diabetes mellitus E11.42 [place] [address] [address] 18 May, 2017 Bipolar I disorder, most recent episode (or current) mixed, moderate F31.62 [facility] [address] [address] 13 May, 2017 Bipolar I disorder, most recent episode (or current) mixed, moderate F31.62 [facility] [address] [address] May, Chronic pain G89.29 [facility] [address] [address] Apr, Bipolar I disorder, most recent episode (or current) mixed, moderate F31.62 [facility] [address] [address] Apr, [facility] [address] [address] Apr, Chronic pain G89.29 and DM neuro manif t ype II E11.49 [facility] [address] [address] Apr, [facility] [address] [address] Apr, Bipolar I disorder, most recent episode (or current) mixed, moderate F31.62 [facility] [address] [address] Apr, Chronic pain G89.29 [facility] [address] [address] Apr, Iliotibial band syndrome, left M76.32 [facility] [address] [address] Apr, Bipolar I disorder, most recent episode (or current) mixed, moderate F31.62 [facility] [address] [address] Mar, Bipolar I disorder, most recent episode (or current) mixed, moderate F31.62 [facility] [address] [address] Mar, Bipolar I disorder, most recent episode (or current) mixed, moderate F31.62 [facility] [address] [address] Mar, [facility] [address] [address] Mar, Bipolar I disorder, most recent episode (or current) mixed, moderate F31.62 [facility] [address] [address] Mar, Chronic pain G89.29 [facility] [address] [address] Mar, Bipolar I disorder, most recent episode (or current) mixed, moderate F31.62 [facility] [address] [address] Mar, Bipolar I disorder, most recent episode (or current) mixed, moderate F31.62 [facility] [address] [address] Mar, Acute pain of left knee M25.562 ; Left h ip pain M25.552 ; Generalized edema R60.1 and Tongue swelling R22.0 [place] [address] [address] Mar, [place] [address] [address] Feb, Chronic pain G89.29 [place] [address] [address] Feb, Diabetes E11.9 [place] [address] [address] January, Chronic pain G89.29 [place] [address] [address] January, [place] [address] [address] January, Bipolar I disorder, most recent episode (or current) mixed, moderate F31.62 [place] [address] [address] Dec, Bipolar I disorder, most recent episode (or current) mixed, moderate F31.62 [place] [address] [address] Dec, Chronic pain G89.29 [place] [address] [address] Dec, Bipolar I disorder, most recent episode (or current) mixed, moderate F31.62 [place] [address] [address] Dec, Diabetes E11.9 ; Essential hypertension I10 ; Chronic pain G89.29 and Morbid obesity E66.01 [place] [address] [address] Dec, [address] [address] Dec, Bipolar I disorder, most recent episode (or current) mixed, moderate F31.62 [place] [address] [address] Dec, Bipolar I disorder, most recent episode (or current) mixed, moderate F31.62 [facility] [address] [address] Nov, Chronic pain G89.29 [facility] [address] [address] Nov, Bipolar I disorder, most recent episode (or current) mixed, moderate F31.62 [facility] [address] [address] [address] Nov, [facility] [address] [address] Nov, Bipolar I disorder, most recent episode (or current) mixed, moderate F31.62 [facility] [address] [address] Nov, Bipolar I disorder, most recent episode (or current) mixed, moderate F31.62 [facility] [address] [address] Nov, [facility] [address] [address] Nov, [facility] [address] [address] Nov, [facility] [address] [address] Oct, Chronic pain G89.29 [facility] [address] [address] Oct, Bipolar I disorder, most recent episode (or current) mixed, moderate F31.62 [facility] [address] [address] Oct, [facility] [address] [address] Oct, Chronic pain G89.29 ; Diabetes E11.9 ; A nxiety F41.9 and 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 [facility] [address] [address] Oct, [facility] [address] [address] Oct, Diabetes E11.9 [facility] [address] [address] Oct, Bipolar I disorder, most recent episode (or current) mixed, moderate F31.62 [place] [address] [address] Sep, Chronic pain G89.29 [place] [address] [address] Sep, Chronic pain G89.29 [place] [address] [address] Aug, Chronic pain G89.29 [facility] [address] [address] Jul, [place] [address] [address] Jul, Diabetes E11.9 [facility] [address] [address] Jul, Chronic pain G89.29 [facility] [address] [address] Jul, Bipolar I disorder, most recent episode (or current) mixed, moderate F31.62 [place] [address] [address] Jun, Bipolar I disorder, most recent episode (or current) mixed, moderate F31.62 [place] [address] [address] Jun, [facility] [address] [address] Jun, Bipolar I disorder, most recent episode (or current) mixed, moderate F31.62 [place] [address] [address] 30 May, 2016 Insomnia, unspecified type G47.00 [place] [address] [address] May, Bipolar I disorder, most recent episode (or current) mixed, moderate F31.62 [place] [address] [address] 14 May, 2016 [place] [address] [address] May, Bipolar I disorder, most recent episode (or current) mixed, moderate F31.62 [place] [address] [address] May, Diabetes E11.9 and Essential hypertensio n I10 [place] [address] [address] Apr, Chronic pain G89.29 [place] [address] [address] Apr, Bipolar I disorder, most recent episode (or current) mixed, moderate F31.62 [place] [address] [address] Apr, [place] [address] [address] Apr, [place] [address] [address] Mar, Chronic pain G89.29 ; Headache, unspecif ied headache type R51 ; Neuropathy G62.9 ; Pain of right hip joint M25.551 and Essential hypertension I10 [place] [address] [address] Mar, Chronic pain G89.29 [place] [address] [address] Mar, Bipolar I disorder, most recent episode (or current) mixed, moderate F31.62 [place] [address] [address] Feb, Bipolar I disorder, most recent episode (or current) mixed, moderate F31.62 and Insomnia, unspecified type G47.00 [place] [address] [address] Feb, Chronic pain G89.29 [place] [address] [address] Feb, Bipolar I disorder, most recent episode (or current) mixed, moderate F31.62 [place] [address] [address] January, Bipolar I disorder, most recent episode (or current) mixed, moderate F31.62 [place] [address] [address] January, Chronic pain G89.29 [place] [address] [address] January, Chronic pain G89.29 and Essential hypert ension I10 [place] [address] [address] January, Bipolar I disorder, most recent episode (or current) mixed, moderate F31.62 [place] [address] [address] Dec, [place] [address] [address] Dec, [place] [address] [address] Dec, [place] [id number] Dec, [place] [address] [address] Nov, Reactive airway disease J45.909 [place] [address] [address] Nov, [place] [address] [address] Nov, [place] [address] [address] Nov, [place] [address] [address] Nov, [place] [address] [address] Nov, Onychomycosis B35.1 ; Hammertoe M20.40 ; [place] or callus L84 and DM neuro manif type II E11.[address] [address] Nov, Chronic pain G89.29 ; Leukocytosis D72.8 29 and Diabetes E11.[address] [address] Nov, [place] [address] [address] Oct, Bronchitis J40 [address] [address] Oct, [place] [address] [address] Oct, [address] [address] Oct, Mastoiditis, unspecified laterality H70. 90 and Type 2 diabetes mellitus with complication E11.[address] [address] Sep, [address] [address] Sep, Dysuria R30.0 ; Cough R05 ; Benign prost atic hyperplasia with lower urinary tract symptoms, unspecified morphology N40.1 ; Hypokalemia E87.6 and Eustachian tube dysfunction, unspecified laterality H69.80 [facility] [address] [address] Sep, Moderate mixed bipolar I disorder F31.62 [facility] [address] [address] Sep, Hypokalemia E87.6 [facility] [address] [address] Sep, [facility] [address] [address] Sep, Upper respiratory tract infection, unspe cified type J06.9 [facility] [address] [address] Aug, [facility] [address] [address] Aug, Dysuria R30.0 [facility] [address] [address] Aug, [facility] [address] [address] Jul, [facility] [address] [address] Jul, [facility] [address] [address] Jul, [facility] [address] [address] Jul, [facility] [address] [address] Jun, [facility] [address] [address] Jun, [facility] [address] [address] Jun, [facility] [address] [address] May, [facility] [address] [address] May, Bipolar I disorder, most recent episode (or current) mixed, moderate 296.62 [facility] [address] [address] May, [facility] [address] [address] May, Bipolar I disorder, most recent episode (or current) mixed, moderate 296.62 and Major depressive disorder, recurrent episode, severe, specified as with psychotic behavior 296.34 [facility] [address] [address] May, Bipolar I disorder, most recent episode (or current) mixed, moderate 296.62 [facility] [address] [address] May, [facility] [address] [address] Apr, [facility] [address] [address] Apr, [facility] [address] [address] Apr, Unspecified disorder of kidney and urete r 593.9 and Diabetes mellitus type 2, uncontrolled 250.02 [facility] [address] [address] Apr, [facility] [address] [address] Apr, [facility] [address] [address] Apr, [facility] [address] [address] Apr, [facility] [address] [address] Apr, Diabetes mellitus type II, uncontrolled 250.02 [facility] [address] [address] Apr, [facility] [address] [address] Mar, [facility] [address] [address] Mar, [facility] [address] [address] Mar, [facility] [address] [address] Mar, Major depressive disorder, recurrent epi sode, severe, specified as with psychotic behavior 296.34 and Bipolar I disorder, most recent episode (or current) mixed, moderate 296.62 [facility] [address] [address] Mar, Diabetes 250.00 ; Anuria 788.5 ; Nausea and vomiting 787.01 and Diarrhea 787.91 [facility] [address] [address] Mar, Diabetes 250.00 [facility] [address] [address] Mar, [facility] [address] [address] Mar, Diabetes 250.00 [facility] [address] [address] Mar, [facility] [address] [address] Mar, [facility] [address] [address] Mar, [facility] [address] [address] Mar, [facility] [address] [address] Mar, Bipolar I disorder, most recent episode (or current) mixed, moderate 296.62 and Major depressive disorder, recurrent episode, severe, specified as with psychotic behavior 296.[address] [address] Mar, Magnesium deficiency 275.2 ; Hypokalemia 276.8 ; Nausea & vomiting 787.01 and Diabetes mellitus type 2, uncontrolled 250.[address] [address] Feb, [address] [address] Feb, Bipolar I disorder, most recent episode (or current) mixed, moderate 296.[address] [address] Feb, Nausea and vomiting 787.01 ; Left elbow pain 719.42 ; Anuria 788.5 and Diabetes 250.[address] [address] Feb, [address] [address] Feb, Hypopotassemia 276.8 and Hypokalemia [address] [address] Feb, Hypopotassemia 276.8 and Hypokalemia [address] [address] Feb, Seborrheic keratoses 702.[address] [address] Feb, Hypopotassemia 276.8 and Low magnesium l evels 275.[address] [address] January, [address] [address] January, [address] [address] January, [facility] [address] [place] [id number] [place] [address] January, Scalp lesion 709.9 [facility] [id number] [place] [address] January, [facility] [id number] [place] [address] Dec, Tear of medial cartilage or meniscus of knee, current 836.0 and 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 [facility] [id number] [place] [address] Dec, [facility] [address] [address] Dec, [facility] [id number] [place] [address] Dec, Squamous cell carcinoma, 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 42 [facility] [id number] [place] [address] Dec, [facility] [id number] [place] [address] Dec, [facility] [address] [id number] [place] [address] Nov, [facility] [id number] [place] [address] Nov, [facility] [id number] [place] [address] Nov, [facility] [id number] [place] [address] Nov, [facility] [address] [id number] [place] [address] Nov, [facility] [id number] [place] [address] Nov, [facility] [id number] [place] [address] Nov, [facility] [address] [id number] [place] [address] Nov, 2014 [facility] [address] [id number] [place] [address] Nov, 2014 [facility] [address] [id number] [place] [address] Nov, 2014 [facility] [address] [id number] [place] [address] Nov, 2014 [facility] [address] [id number] [place] [address] Nov, [facility] [address] [id number] [place] [address] Oct, 2014 [facility] [address] [id number] [place] [address] Oct, 2014 [facility] [address] [id number] [place] [address] Oct, 2014 [facility] [address] [id number] [place] [address] Oct, 2014 [facility] [address] [id number] [place] [address] Oct, 2014 [facility] [address] [id number] [place] [address] Oct, 2014 [facility] [address] [id number] [place] [address] Oct, 2014 [facility] [address] [id number] [place] [address] Oct, 2014 [facility] [address] [id number] [place] [address] Oct, 2014 [facility] [address] [id number] [place] [address] Sep, [facility] [address] [id number] [place] [address] Sep, [facility] [address] [id number] [place] [address] Sep, [facility] [address] [facility] [id number] [place] [address] Sep, [facility] [address] [id number] [place] [address] Sep, [facility] [address] [id number] [place] [address] Sep, [facility] [address] [id number] [place] [address] Sep, [facility] [address] [id number] [place] [address] Sep, [facility] [address] [id number] [place] [address] Sep, [facility] [address] [id number] [place] [address] Sep, [facility] [address] [id number] [place] [address] Sep, [facility] [address] [id number] [place] [address] Sep, [facility] [address] [id number] [place] [address] Sep, [facility] [address] [id number] [place] [address] Sep, [facility] [address] [id number] [place] [address] Sep, [facility] [address] [id number] [place] [address] Sep, [facility] [address] [id number] [place] [address] Aug, [facility] [address] [id number] [place] [address] Aug, [facility] [address] [id number] [place] [address] Aug, [facility] [address] [facility] [id number] [place] [address] Aug, [facility] [address] [facility] [id number] [place] [address] Aug, [facility] [address] [facility] [id number] [place] [address] Aug, [facility] [address] [id number] [place] [address] Aug, [facility] [address] [facility] [id number] [place] [address] Aug, [facility] [address] [id number] [place] [address] Aug, [facility] [address] [id number] [place] [address] Aug, [facility] [address] [id number] [place] [address] Aug, [facility] [address] [place] [id number] Aug, [facility] [address] [id number] [place] [address] Aug, [facility] [address] [id number] [place] [address] Aug, [facility] [address] [id number] [place] [address] Aug, [facility] [address] [id number] [place] [address] Aug, [facility] [address] [facility] [id number] [place] [address] Aug, [facility] [address] [id number] [place] [address] Aug, [facility] [address] [id number] [place] [address] Aug, [facility] [address] [id number] [place] [address] 08 Aug, 2014 [facility] [address] [id number] [place] [address] Aug, [facility] [address] [id number] [place] [address] Aug, [facility] [address] [id number] [place] [address] Aug, [facility] [address] [id number] [place] [address] Aug, [facility] [address] [facility] [id number] [place] [address] Aug, [facility] [address] [id number] [place] [address] Aug, [facility] [address] [id number] [place] [address] Aug, [facility] [address] [id number] [place] [address] Aug, [facility] [address] [id number] [place] [address] Aug, [facility] [address] [id number] [place] [address] Aug, [facility] [address] [id number] [place] [address] Jul, [facility] [address] [id number] [place] [address] Jul, [facility] [address] [id number] [place] [address] Jul, [facility] [address] [id number] [place] [address] Jul, [facility] [address] [id number] [place] [address] Jul, [facility] [address] [id number] [place] [address] Jul, [facility] [address] [id number] [place] [address] Jul, [facility] [address] [id number] [place] [address] Jul, [facility] [address] [id number] [place] [address] Jul, [facility] [address] [id number] [place] [address] Jul, [facility] [address] [id number] [place] [address] Jun, [facility] [address] [id number] [place] [address] Jun, [facility] [address] [id number] [place] [address] Jun, [facility] [address] [id number] [place] [address] Jun, [facility] [address] [id number] [place] [address] Jun, [facility] [address] [id number] [place] [address] Jun, [facility] [address] [id number] [place] [address] Jun, [facility] [address] [id number] [place] [address] Jun, [facility] [address] [id number] [place] [address] Jun, [facility] [address] [id number] [place] [address] Jun, [facility] [id number] [place] [address] 29 May, 2014 [facility] [address] [id number] [place] [address] 29 May, 2014 [facility] [address] [id number] [place] [address] May, [facility] [address] [id number] [place] [address] 26 May, 2013 [facility] [address] [id number] [place] [address] 17 May, 2013 [facility] [address] [id number] [place] [address] 17 May, 2013 [facility] [address] [id number] [place] [address] 15 May, 2013 [facility] [address] [id number] [place] [address] 15 May, 2013 [facility] [address] [id number] [place] [address] 15 May, 2013 [facility] [place] [facility] [address] [id number] [place] [address] 15 May, 2013 [facility] [place] [facility] [address] [id number] [place] [address] 10 May, 2013 [facility] [place] [facility] [address] [id number] [place] [address] 10 May, 2013 [facility] [place] [facility] [address] [id number] [place] [address] 09 May, 2013 [facility] [place] [facility] [address] [id number] [place] [address] 09 May, 2013 [facility] [place] [facility] [address] [id number] [place] [address] 04 May, 2013 [facility] [place] [facility] [address] [id number] [place] [address] 04 May, 2013 [facility] [place] [facility] [address] [id number] [place] [address] Apr, [facility] [place] [facility] [address] [id number] [place] [address] Apr, [facility] [place] [facility] [address] [id number] [place] [address] Apr, 2013 [facility] [place] [facility] [address] [id number] [place] [address] Apr, [facility] [place] [facility] [address] [id number] [place] [address] Apr, [facility] [place] [facility] [address] [facility] [id number] [place] [address] Apr, [facility] [place] [facility] [address] [facility] [id number] [facility] [place] [address] Apr, [facility] [place] [facility] [address] [id number] [place] [address] Apr, [facility] [place] [facility] [address] [id number] [place] [address] Apr, [facility] [place] [facility] [address] [id number] [place] [address] Apr, [facility] [place] [facility] [address] [facility] [id number] [facility] [place] [address] Apr, [facility] [place] [facility] [address] [id number] [place] [address] Apr, [facility] [place] [facility] [address] [facility] [id number] [facility] [place] [address] Apr, [facility] [place] [facility] [address] [id number] [place] [address] Apr, [facility] [place] [facility] [address] [facility] [id number] [facility] [place] [address] Apr, [facility] [place] [facility] [address] [id number] [facility] [address] Mar, [facility] [place] [facility] [address] [facility] [id number] [place] [address] Mar, [facility] [place] [facility] [address] [id number] [facility] [place] [address] Mar, [facility] [place] [facility] [address] [facility] [id number] [facility] [address] Mar, [facility] [place] [facility] [address] [facility] [id number] [facility] [address] Mar, [facility] [place] [facility] [address] [id number] [place] [address] Mar, 2013 [facility] [place] [facility] [address] [facility] [id number] [place] [address] Mar, 2013 [facility] [place] [facility] [address] [facility] [id number] [place] [address] Mar, 2013 [facility] [place] [facility] [address] [id number] [place] [address] Mar, 2013 [facility] [place] [facility] [address] [id number] [place] [address] Mar, 2013 [facility] [place] [facility] [address] [facility] [id number] [place] [address] Mar, 2013 [facility] [place] [facility] [address] [id number] [place] [address] Mar, 2013 [facility] [place] [facility] [address] [id number] [place] [address] Mar, 2013 [facility] [place] [facility] [address] [id number] [place] [address] Mar, 2013 [facility] [place] [facility] [address] [id number] [place] [address] Mar, 2013 [facility] [place] [facility] [address] [id number] [place] [address] Mar, 2013 [facility] [place] [facility] [address] [id number] [place] [address] Mar, 2013 [facility] [place] [facility] [address] [id number] [place] [address] Mar, 2013 [facility] [place] [facility] [address] [id number] [place] [address] Feb, [facility] [place] [facility] [address] [id number] [place] [address] Feb, [facility] [place] [facility] [address] [id number] [place] [address] Feb, [facility] [place] [facility] [address] [id number] [place] [address] Feb, [facility] [place] [facility] [address] [facility] [id number] [place] [address] Feb, [facility] [place] [facility] [address] [id number] [place] [address] Feb, [facility] [place] [facility] [address] [id number] [place] [address] Feb, [facility] [place] [facility] [address] [id number] [place] [address] Feb, [facility] [place] [facility] [address] [facility] [id number] [place] [address] Feb, [facility] [place] [facility] [address] [id number] [place] [address] Feb, [facility] [place] [facility] [address] [id number] [place] [address] Feb, [facility] [place] [facility] [address] [id number] [place] [address] Feb, [facility] [place] [facility] [address] [id number] [place] [address] Feb, [facility] [place] [facility] [address] [id number] [place] [address] Feb, [facility] [place] [facility] [address] [id number] [place] [address] January, [facility] [place] [facility] [address] [id number] [place] [address] January, [facility] [place] [facility] [address] [id number] [place] [address] January, [facility] [place] [facility] [address] [facility] [id number] [place] [address] January, [facility] [place] [facility] [address] [id number] [place] [address] January, [facility] [place] [facility] [address] [id number] [place] [address] January, [facility] [place] [facility] [address] [id number] [place] [address] January, [facility] [place] [facility] [address] [id number] [facility] [address] January, [facility] [place] [facility] [address] [id number] [facility] [address] January, [facility] [place] [facility] [address] [facility] [id number] [facility] [address] January, [facility] [place] [facility] [address] [id number] [facility] [address] January, [facility] [place] [facility] [address] [id number] [place] [address] January, [facility] [place] [facility] [address] [id number] [place] [address] January, [facility] [place] [facility] [address] [id number] [place] [address] January, [facility] [place] [facility] [address] [id number] [facility] [address] Dec, [facility] [place] [facility] [address] [id number] [facility] [address] Dec, [facility] [place] [facility] [address] [id number] [place] [address] Dec, [facility] [place] [facility] [address] [facility] [id number] [place] [address] Dec, [facility] [place] [facility] [address] [id number] [place] [address] Dec, [facility] [place] [facility] [address] [id number] [facility] [address] Dec, [facility] [place] [facility] [address] [id number] [place] [address] Dec, [facility] [place] [facility] [address] [facility] [id number] [place] [address] Dec, [facility] [place] [facility] [address] [id number] [facility] [address] Dec, [facility] [place] [facility] [address] [id number] [place] [address] Dec, [facility] [place] [facility] [address] [facility] [id number] [place] [address] Nov, [facility] [place] [facility] [address] [facility] [id number] [place] [address] Nov, [facility] [place] [facility] [address] [id number] [facility] [address] Nov, [facility] [place] [facility] [address] [id number] [place] [address] Nov, [facility] [place] [facility] [address] [facility] [id number] [place] [address] Nov, [facility] [place] [facility] [address] [id number] [place] [address] Nov, [facility] [place] [facility] [address] [id number] [place] [address] Nov, [facility] [place] [facility] [address] [id number] [place] [address] Nov, [facility] [place] [facility] [address] [id number] [place] [address] Nov, [facility] [place] [facility] [address] [id number] [place] [address] Nov, [facility] [place] [facility] [address] [id number] [place] [address] Oct, [facility] [place] [facility] [address] [id number] [place] [address] Oct, [facility] [place] [facility] [address] [facility] [id number] [place] [address] Oct, [facility] [place] [facility] [address] [id number] [place] [address] Oct, [facility] [place] [facility] [address] [id number] [place] [address] Oct, [facility] [place] [facility] [address] [id number] [place] [address] Oct, [facility] [place] [facility] [address] [facility] [id number] [facility] [place] [address] Oct, [facility] [place] [facility] [address] [facility] [id number] [facility] [address] Oct, [facility] [place] [facility] [address] [id number] [facility] [address] Oct, [facility] [place] [facility] [address] [id number] [facility] [address] Oct, [facility] [place] [facility] [address] [facility] [id number] [place] [address] Oct, [facility] [place] [facility] [address] [id number] [place] [address] Oct, [facility] [place] [facility] [address] [id number] [facility] [address] Oct, [facility] [place] [facility] [address] [id number] [facility] [address] Oct, [facility] [place] [facility] [address] [id number] [facility] [address] Sep, [facility] [place] [facility] [address] [id number] [place] [address] Sep, [facility] [place] [facility] [address] [id number] [place] [address] Sep, [facility] [place] [facility] [address] [id number] [place] [address] Sep, [facility] [place] [facility] [address] [id number] [facility] [address] Sep, [facility] [place] [facility] [address] [id number] [place] [address] Sep, [facility] [place] [facility] [address] [id number] [place] [address] Sep, [facility] [place] [facility] [address] [id number] [place] [address] Sep, [facility] [place] [facility] [address] [id number] [place] [address] 08 Sep, 2013 [facility] [place] [facility] [address] [id number] [place] [address] Sep, [facility] [place] [facility] [address] [id number] [place] [address] Aug, [facility] [place] [facility] [address] [id number] [place] [address] Aug, [facility] [place] [facility] [address] [id number] [place] [address] Jul, [facility] [place] [facility] [address] [id number] [place] [address] Jul, [facility] [place] [facility] [address] [id number] [place] [address] Jul, [facility] [place] [facility] [address] [id number] [place] [address] Jul, [facility] [place] [facility] [address] [id number] [place] [address] Jul, [facility] [place] [facility] [address] [id number] [place] [address] Jul, [facility] [place] [facility] [address] [id number] [place] [address] Jul, [facility] [place] [facility] [address] [id number] [place] [address] Jul, [facility] [place] [facility] [address] [id number] [place] [address] Jul, [facility] [place] [facility] [address] [id number] [place] [address] Jul, [facility] [place] [facility] [address] [id number] [place] [address] Jul, [facility] [place] [facility] [address] [id number] [place] [address] Jul, [facility] [place] [facility] [address] [id number] [place] [address] Jul, [facility] [place] [facility] [address] [id number] [place] [address] Jul, 2012 [facility] [place] [facility] [address] [id number] [place] [address] Jul, 2012 [facility] [place] [facility] [address] [id number] [place] [address] Jul, 2012 [facility] [place] [facility] [address] [id number] [place] [address] Jul, 2012 [facility] [place] [facility] [address] [id number] [place] [address] Jul, 2012 [facility] [place] [facility] [address] [id number] [place] [address] Jul, 2012 [facility] [place] [facility] [address] [id number] [place] [address] Jun, 2012 [facility] [place] [facility] [address] [id number] [place] [address] Jun, 2012 [facility] [place] [facility] [address] [id number] [place] [address] Jun, 2012 [facility] [place] [facility] [address] [id number] [place] [address] Jun, 2012 [facility] [place] [facility] [address] [id number] [place] [address] Jun, 2012 [facility] [place] [facility] [address] [id number] [place] [address] 16 Jun, 2012 [facility] [place] [facility] [address] [id number] [place] [address] 10 Jun, 2012 [facility] [place] [facility] [address] [id number] [place] [address] 10 Jun, 2012 [facility] [place] [facility] [address] [id number] [place] [address] Jun, 2012 [facility] [place] [facility] [address] [id number] [place] [address] Jun, 2012 [facility] [place] [facility] [address] [id number] [place] [address] Jun, [facility] [place] [facility] [address] [facility] [id number] [facility] [address] May, 2012 [facility] [place] [facility] [address] [facility] [id number] [facility] [address] May, [facility] [place] [facility] [address] [id number] [facility] [address] May, 2012 [facility] [place] [facility] [address] [facility] [id number] [place] [address] 17 May, 2012 [facility] [place] [facility] [address] [facility] [id number] [facility] [address] May, [facility] [place] [facility] [address] [id number] [facility] [address] May, [facility] [place] [facility] [address] [id number] [facility] [address] May, [facility] [place] [facility] [address] [id number] [facility] [address] May, [facility] [place] [facility] [address] [facility] [id number] [facility] [address] Apr, [facility] [place] [facility] [address] [id number] [facility] [address] Apr, [facility] [place] [facility] [address] [id number] [place] [address] Apr, [facility] [place] [facility] [address] [id number] [place] [address] Apr, [facility] [place] [facility] [address] [facility] [id number] [facility] [address] Apr, [facility] [place] [facility] [address] [id number] [place] [address] Mar, [facility] [place] [facility] [address] [id number] [facility] [address] Mar, [facility] [place] [facility] [address] [id number] [place] [address] Mar, [facility] [place] [facility] [address] [facility] [id number] [facility] [address] Mar, [facility] [place] [facility] [address] [facility] [id number] [facility] [address] Mar, [facility] [place] [facility] [address] [facility] [id number] [place] [address] Mar, [facility] [place] [facility] [address] [id number] [place] [address] Mar, [facility] [place] [facility] [address] [id number] [facility] [address] Mar, [facility] [place] [facility] [address] [id number] [place] [address] Feb, [facility] [place] [facility] [address] [id number] [place] [address] Feb, [facility] [place] [facility] [address] [id number] [place] [address] January, [facility] [place] [facility] [address] [id number] [place] [address] January, [facility] [place] [facility] [address] [id number] [place] [address] Dec, [facility] [place] [facility] [address] [id number] [place] [address] Dec, [facility] [place] [facility] [address] [id number] [place] [address] Nov, [facility] [place] [facility] [address] [id number] [place] [address] Nov, [facility] [place] [facility] [address] [id number] [place] [address] Nov, [facility] [place] [facility] [address] [id number] [place] [address] Nov, [facility] [place] [facility] [address] [id number] [place] [address] Oct, [facility] [place] [facility] [address] [id number] [place] [address] Oct, [facility] [address] [id number] [facility] [address] Oct, [facility] [place] [facility] [address] [id number] [facility] [address] Oct, [facility] [place] [facility] [address] [id number] [facility] [address] 16 Oct, 2012 [facility] [place] [facility] [address] [id number] [facility] [address] 14 Oct, 2012 [facility] [place] [facility] [address] [id number] [facility] [address] 08 Oct, 2012 [facility] [place] [facility] [address] [id number] [facility] [address] 07 Oct, 2012 [facility] [place] [facility] [address] [id number] [place] [address] Oct, [facility] [place] [facility] [address] [id number] [place] [address] Sep, [facility] [place] [facility] [address] [id number] [place] [address] Sep, [facility] [place] [facility] [address] [id number] [place] [address] Sep, [facility] [place] [facility] [address] [id number] [place] [address] Sep, [facility] [place] [facility] [address] [id number] [place] [address] Sep, [facility] [place] [facility] [address] [id number] [place] [address] Sep, [facility] [place] [facility] [address] [id number] [place] [address] Sep, [facility] [place] [facility] [address] [id number] [place] [address] Sep, [facility] [place] [facility] [address] [id number] [place] [address] Aug, [facility] [place] [facility] [address] [id number] [place] [address] 31 Aug, 2012 [facility] [place] [facility] [address] [id number] [place] [address] Aug, [facility] [place] [facility] [address] [id number] [place] [address] Aug, [facility] [place] [facility] [address] [id number] [place] [address] Aug, [facility] [place] [facility] [address] [id number] [place] [address] Aug, [facility] [place] [facility] [address] [id number] [place] [address] Aug, [facility] [place] [facility] [address] [id number] [place] [address] Aug, [facility] [place] [facility] [address] [id number] [place] [address] Jul, [facility] [place] [facility] [address] [id number] [place] [address] Jul, [facility] [place] [facility] [address] [id number] [place] [address] Jul, [facility] [place] [facility] [address] [id number] [place] [address] Jul, [facility] [place] [facility] [address] [id number] [place] [address] Jul, [facility] [place] [facility] [address] [id number] [place] [address] Jul, [facility] [place] [facility] [address] [id number] [place] [address] Jun, [facility] [place] [facility] [address] [id number] [place] [address] Jun, [facility] [place] [facility] [address] [id number] [place] [address] Jun, [facility] [place] [facility] [address] [id number] [place] [address] Jun, [facility] [place] [facility] [address] [id number] [place] [address] Jun, [facility] [place] [facility] [address] [id number] [place] [address] Jun, [facility] [place] [facility] [address] [id number] [place] [address] Jun, [facility] [place] [facility] [address] [id number] [place] [address] Jun, [facility] [place] [facility] [address] [id number] [place] [address] Jun, [facility] [place] [facility] [address] [id number] [place] [address] May, [facility] [place] [facility] [address] [id number] [place] [address] 24 May, 2012 [facility] [place] [facility] [address] [id number] [place] [address] May, [facility] [place] [facility] [address] [id number] [place] [address] Apr, [facility] [place] [facility] [address] [id number] [place] [address] Apr, [facility] [place] [facility] [address] [id number] [place] [address] Apr, [facility] [place] [facility] [address] [id number] [place] [address] Apr, [facility] [place] [facility] [address] [id number] [place] [address] Apr, [facility] [place] [facility] [address] [id number] [place] [address] Apr, [facility] [place] [facility] [address] [id number] [place] [address] Mar, [facility] [place] [facility] [address] [id number] [place] [address] Mar, [facility] [place] [facility] [address] [id number] [place] [address] Mar, [facility] [place] [facility] [address] [id number] [facility] [address] Mar, [facility] [place] [facility] [address] [id number] [facility] [place] [address] Feb, [facility] [address] [id number] [facility] [place] [address] Feb, [facility] [address] [id number] [facility] [place] [address] Feb, [facility] [address] [id number] [facility] [place] [address] Feb, [facility] [address] [id number] [place] [address] Feb, [facility] [address] [id number] [place] [address] January, [facility] [address] [id number] [place] [address] January, [facility] [address] [id number] [place] [address] January, [facility] [address] [id number] [place] [address] January, [facility] [address] [id number] [place] [address] January, [facility] [address] [id number] [place] [address] January, [facility] [address] [id number] [place] [address] Dec, [facility] [address] [id number] [place] [address] Dec, [facility] [address] [id number] [place] [address] Dec, [facility] [address] [id number] [place] [address] Dec, [facility] [address] [id number] [place] [address] 06 Dec, 2011 [facility] [address] [id number] [place] [address] 27 Nov, 2011 [facility] [address] [id number] [place] [address] 14 Nov, 2011 [facility] [address] [id number] [place] [address] Nov, [facility] [address] [id number] [place] [address] 07 Nov, 2011 [facility] [address] [id number] [place] [address] 29 Oct, 2011 [facility] [address] [id number] [place] [address] 28 Oct, 2011 [facility] [address] [id number] [place] [address] 24 Oct, 2011 [facility] [address] [id number] [place] [address] Oct, [facility] [address] [id number] [place] [address] 08 Oct, 2011 [facility] [address] [id number] [place] [address] Sep, [facility] [address] [id number] [place] [address] Sep, [facility] [address] [id number] [place] [address] Sep, [facility] [address] [id number] [place] [address] Sep, [facility] [address] [id number] [place] [address] Sep, [facility] [address] [id number] [place] [address] Sep, [facility] [address] [id number] [place] [address] Aug, [facility] [address] [facility] [id number] [place] [address] Aug, [facility] [address] [id number] [place] [address] Aug, [facility] [address] [id number] [place] [address] Jul, [facility] [address] [id number] [place] [address] Jul, [facility] [address] [id number] [place] [address] Jul, [facility] [address] [id number] [place] [address] Jul, [facility] [address] [id number] [place] [address] Jun, [facility] [address] [id number] [place] [address] Jun, [facility] [address] [id number] [place] [address] Jun, [facility] [address] [id number] [place] [address] Jun, [facility] [address] [id number] [place] [address] Jun, [facility] [address] [id number] [place] [address] Jun, [facility] [address] [id number] [place] [address] Mar, [facility] [address] [id number] [place] [address] Dec, [facility] [address] [id number] [place] [address] Dec, [facility] [address] [id number] [place] [address] Nov, [facility] [address] [id number] [facility] [address] 16 Nov, 2010 [facility] [address] [id number] [place] [address] 10 Sep, 2010 [facility] [address] [id number] [place] [address] 31 Aug, 2010 [facility] [address] [id number] [place] [address] 29 Aug, 2010 [facility] [address] [id number] [place] [address] 29 Aug, 2010 [facility] [address] [id number] [place] [address] Aug, [facility] [address] [id number] [place] [address] Aug, [facility] [address] [id number] [place] [address] 14 Aug, 2010 [facility] [address] [id number] [place] [address] 08 Aug, 2010 [facility] [address] [id number] [place] [address] 08 Aug, 2010 [facility] [address] [id number] [place] [address] 07 Aug, 2010 [facility] [address] [id number] [place] [address] 06 Aug, 2010 [facility] [address] [id number] [place] [address] 06 Aug, 2010 [facility] [address] [id number] [place] [address] Aug, [facility] [address] [id number] [place] [address] Jul, [facility] [address] [id number] [place] [address] Jul, [facility] [address] [id number] [place] [address] Jul, [facility] [address] [id number] [place] [address] 17 Jul, 2010 [facility] [address] [id number] [place] [address] Jul, [facility] [address] [id number] [place] [address] Jul, [facility] [address] [id number] [place] [address] 24 Jun, 2010 [facility] [address] [id number] [place] [address] Jun, [facility] [address] [id number] [place] [address] Jun, [facility] [address] [id number] [place] [address] Jun, [facility] [facility] [address] [id number] [place] [address] Apr, [facility] [address] [id number] [place] [address] Mar, [facility] [address] [id number] [place] [address] Feb, [facility] [address] [id number] [place] [address] January, [facility] [address] [id number] [place] [address] 15 Dec, 2009 [facility] [address] [id number] [place] [address] Nov, [facility] [address] [id number] [place] [address] Aug, [facility] [address] [id number] [place] [address] 23 Aug, 2009 [facility] [address] [id number] [place] [address] 07 Aug, 2009 [facility] [address] [id number] [place] [address] Jul, [facility] [address] [id number] [place] [address] Jul, [facility] [id number] [place] [address] Jul, [facility] [address] [id number] [place] [address] Jun, [facility] [id number] [place] [address] Jun, [facility] [id number] [place] [address] Jun, [facility] [id number] [place] [address] Jun, [facility] [id number] [place] [address] Jun, [facility] [id number] [place] [address] Jun, [facility] [id number] [place] [address] Apr, [facility] [id number] [place] [address] Apr, [facility] [id number] [place] [address] Feb, [facility] [id number] [place] [address] January, [facility] [id number] [place] [address] Dec, IMMUNIZATIONS No Known Immunizations SOCIAL HISTORY Never Assessed REASON FOR VISIT PLAN OF CARE VITAL SIGNS MEDICATIONS Unknown Medications RESULTS No Results PROCEDURES Procedure Date Ordered Result Body Site PSYTX PT&/FAMILY 45 MINUTES January 13, 2014 INSTRUCTIONS MEDICATIONS ADMINISTERED No Known Medications MEDICAL (GENERAL) HISTORY Type Description Date Medical History type II diabetes Medical History coronary artery disease stress test Medical History chronic obstructive pulmonary disease (C OPD) Medical History gastroesophageal reflux disease (GERD) Medical History acute renal failure Medical History erectile dysfunction Medical History hyperlipidemia Medical History obesity Medical History skin cancer-basal cell R yarsani (removed ) Medical History Arthritis Medical History [...] colonoscopy 2009 ([facility]), 2013 ([facility] ) Surgical History heart cath: CAD w/ [...] History inability to urinate 09/16/15 Hospitalization History [facility] inpatient mental health ea rly 2000's Hospitalization History hyperkalemia 10/2017 Hospitalization History fluid in lung
--- OUTSIDE RECORDS SUMMARY | 2020-03-01 16:53 | XMS REPORT ---
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 Name Role Phone NOEMI WASHBURN Unavailable PROBLEMS Type Condition ICD9-CM Code JKO84-WO Code Onset Dates Condition S tatus SNOMED Code Problem DM neuro manif type II E11.49 Active 56288090 Problem Chronic pain G89.29 Active 3811971 1 Problem Diabetes E11.9 Active 14841982 Problem Reactive airway disease J45.909 Active 094103903215 Problem Leukocytosis D72.829 Active 2820495 06 Problem Insomnia, unspecified type G47.00 Act sharon 462142948 Problem Bipolar I disorder, most recent episode (or curr ent) mixed, moderate F31.62 Active 87495688 Problem Primary osteoarthritis of right knee M17.11 Active 914844619608577 Problem Cough R05 Active 31384221 Problem Pure hypercholesterolemia E78.00 Acti ve 991248275 Problem Dysuria R30.0 Active 81244088 Problem Benign prostatic hyperplasia with lower urinary tract symptoms, unspecified morphology N40.1 Active 38978 6007 Problem Eustachian tube dysfunction, unspecified laterality H69.80 Active 30015505 Problem Polyneuropathy associated with underlying disease G63 Active 728654971 Problem Diabetic polyneuropathy associated with type 2 d iabetes mellitus E11.42 Active 92589038 Problem Anemia of chronic illness D63.8 Acti ve 960608686 Problem Chronic lymphocytic leukemia C91.10 A ctive 44601644 Problem Bilateral primary osteoarthritis of knee M17.0 Active 232600574 Problem 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 Active 183860100 Problem Eye exam abnormal R93.8 Active 16 3803306 Problem Retinal edema H35.81 Active 972370 6 Problem Lymphocytosis D72.820 Active 161922 09 Problem Bipolar disorder, in partial remission, most rec ent episode depressed F31.75 Active 98021725 Problem Hypokalemia E87.6 Active 84965665 Problem Falling R29.6 Active 039368867 Problem Pressure ulcer of other site, stage 3 L89.893 Active 026074527 Problem Other iron deficiency anemia D50.8 A ctive 70629756 Problem Mild cognitive impairment G31.84 Acti ve 892891194 Problem Skin cancer C44.90 Active 94200979 7 Problem group home (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 Z79.4 Active 426787799 Problem Morbid obesity E66.01 Active 86202 6002 Problem Mood disorder F39 Active 854628 05 Problem Anxiety F41.9 Active 20524582 Problem Essential hypertension I10 Active 17300093 Problem Bipolar disorder F31.9 Active 137 78951 Problem Chronic diastolic (congestive) heart failure I50.3 2 Active 886844010 Problem Psychophysiological insomnia F51.04 A ctive 142804910 Problem Type 2 diabetes mellitus with diabetic neuropathy, uns pecified E11.40 Active 30574302 ALLERGIES No Information ENCOUNTERS Encounter Location Date Diagnosis [place] [address] [address] Oct, [place] [address] [address] Oct, [place] [address] [address] Sep, Mood disorder F39 [place] [address] [address] Sep, Bipolar disorder, in partial remission, most recent episode depressed F31.75 and Mild cognitive impairment G31.84 [place] [address] [address] Sep, Mood disorder F39 [place] [address] [address] Sep, [place] [address] [address] Sep, Mood disorder F39 [place] [address] [address] Sep, [place] [address] [place] [id number] [place] [address] Aug, Mood disorder F39 [facility] [address] [id number] [place] [address] Aug, [facility] [address] [id number] [place] [address] Aug, [facility] [address] [id number] [place] [address] Aug, [facility] [address] [id number] [place] [address] Aug, [facility] [address] [id number] [place] [address] Aug, [facility] [address] [place] [id number] [place] [address] Aug, [facility] [address] [facility] [place] [address] Aug, [facility] [address] [id number] [place] [address] Aug, Essential hypertension I10 [facility] [address] [place] [id number] [place] [address] Aug, Bipolar disorder, in partial remission, most recent episode depressed F31.75 and Mild cognitive impairment G31.84 [facility] [address] [place] [id number] [place] [address] Aug, Mood disorder F39 [facility] [address] [id number] [place] [address] Aug, [facility] [address] [id number] [place] [address] Aug, Bipolar disorder, in partial remission, most recent episode depressed F31.75 and Mild cognitive impairment G31.84 [facility] [address] [place] [id number] [place] [address] Jul, Bipolar disorder, in partial remission, most recent episode depressed F31.75 and Mild cognitive impairment G31.84 [facility] [address] [place] [id number] [place] [address] Jul, Psychophysiological insomnia F51.04 [facility] [address] [address] Jul, [facility] [address] [address] Jul, [facility] [address] [address] Jul, [facility] [address] [address] Jul, [facility] [address] [address] Jul, [facility] [address] [address] Jul, [facility] [address] [address] Jul, Bipolar disorder, in partial remission, most recent episode depressed F31.75 and Mild cognitive impairment G31.84 [facility] [address] [address] Jul, Chronic pain G89.29 ; Diabetes E11.9 ; E ssential hypertension I10 ; Ill feeling R68.89 ; Local infection of the skin and subcutaneous tissue, unspecified L08.9 and Other injury of unspecified body region, initial encounter T14.8XXA [facility] [address] [address] Jun, Bipolar disorder, in partial remission, most recent episode depressed F31.75 and Mild cognitive impairment G31.84 [facility] [address] [address] Jun, [facility] [address] [address] Jun, Bipolar disorder, in partial remission, most recent episode depressed F31.75 and Mild cognitive impairment G31.84 [facility] [address] [address] Jun, Psychophysiological insomnia F51.04 [facility] [address] [address] Jun, Psychophysiological insomnia F51.04 ; Ch ronic pain G89.29 ; Bipolar I disorder, most recent episode (or current) mixed, moderate F31.62 ; 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 ; Polyneuropathy associated with underlying disease G63 ; Type 2 diabetes mellitus with diabetic neuropathy, unspecified E11.40 ; group home (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 Z79.4 and Hyperglycemia R73.9 [place] [address] [address] Jun, Bipolar disorder, in partial remission, most recent episode depressed F31.75 and Mild cognitive impairment G31.84 [place] [address] [address] Jun, [place] [address] [address] Jun, Bipolar disorder F31.9 [place] [address] [address] May, Bipolar disorder, in partial remission, most recent episode depressed F31.75 and Mild cognitive impairment G31.84 [place] [address] [address] May, [place] [address] [address] Apr, Chronic pain G89.29 and Bipolar disorder F31.9 [facility] [address] [address] Mar, Bipolar disorder F31.9 and Chronic pain G89.29 [facility] [address] [address] Feb, Bipolar disorder F31.9 [facility] [address] [address] Feb, Cellulitis of right upper extremity L03. 113 and Skin abrasion T14.8XXA [facility] [address] [address] Feb, Bipolar disorder, in partial remission, most recent episode depressed F31.75 and Mild cognitive impairment G31.84 [facility] [address] [address] Feb, Chronic pain G89.29 [facility] [address] [address] Feb, Bipolar disorder, in partial remission, most recent episode depressed F31.75 and Mild cognitive impairment G31.84 [place] [address] [address] January, Bipolar disorder, in partial remission, most recent episode depressed F31.75 and Mild cognitive impairment G31.84 [place] [address] [address] January, Chronic pain G89.29 and Bipolar disorder F31.9 [place] [address] [address] January, Bipolar disorder, in partial remission, most recent episode depressed F31.75 and Mild cognitive impairment G31.84 [place] [address] [address] Dec, [place] [address] [address] Dec, Chronic pain G89.29 and Bipolar disorder F31.9 [facility] [address] [address] Dec, Edema of both lower extremities R60.0 [place] [address] [address] Dec, Bipolar disorder F31.9 [facility] [address] [address] Dec, Bipolar disorder, in partial remission, most recent episode depressed F31.75 and Mild cognitive impairment G31.84 [place] [address] [address] Nov, [place] [address] [address] Nov, Chronic pain G89.29 [place] [address] [address] Nov, Bipolar disorder, in partial remission, most recent episode depressed F31.75 and Mild cognitive impairment G31.84 [place] [address] [address] Nov, Bipolar disorder F31.9 [place] [address] [address] 04 Nov, 2018 Encounter for Medicare annual [...] unspecified morphology N40.1 and Essential hypertension I10 [place] [address] [address] Oct, Chronic pain G89.29 [place] [address] [address] Oct, Diabetes E11.9 [place] [address] [address] Oct, Bipolar I disorder, most recent episode (or current) mixed, moderate F31.62 and Mild cognitive impairment G31.84 [place] [address] [address] Oct, Bipolar I disorder, most recent episode (or current) mixed, moderate F31.62 and Mild cognitive impairment G31.84 [place] [address] [address] Sep, Bipolar I disorder, most recent episode (or current) mixed, moderate F31.62 and Mild cognitive impairment G31.84 [place] [address] [address] Sep, [address] [address] Sep, Diabetes E11.9 ; Hypoxia R09.02 ; Hyperg lycemia R73.9 ; Therapeutic drug monitoring Z51.81 ; BMI 50.0-59.9, adult Z68.43 and Skin cancer C44.[address] [address] Sep, Chronic pain G89.[address] [address] Sep, Bipolar I disorder, most recent episode (or current) mixed, moderate F31.[address] [address] Sep, [address] [address] Sep, [place] [address] [address] Aug, Chronic pain G89.[address] [address] Aug, Bipolar I disorder, most recent episode (or current) mixed, moderate F31.[address] [address] Aug, Bipolar I disorder, most recent episode (or current) mixed, moderate F31.62 and Mild cognitive impairment G31.84 [place] [address] [address] Jul, [place] [id number] [place] [address] Jul, Chronic pain G89.29 [facility] [address] [address] Jul, Bipolar I disorder, most recent episode (or current) mixed, moderate F31.62 and Mild cognitive impairment G31.84 [facility] [address] [address] Jul, Bipolar I disorder, most recent episode (or current) mixed, moderate F31.62 and MCI (mild cognitive impairment) G31.84 [facility] [address] [address] Jul, [facility] [address] [address] Jul, [facility] [address] [address] Jul, Bipolar I disorder, most recent episode (or current) mixed, moderate F31.62 [facility] [address] [place] [id number] [place] [address] Jul, Chronic pain G89.29 [facility] [address] [address] Jun, Bipolar I disorder, most recent episode (or current) mixed, moderate F31.62 [facility] [address] [place] [id number] [place] [address] Jun, Pre-procedure lab exam Z01.812 [facility] [address] [place] [id number] [place] [address] Jun, [facility] [address] [facility] [place] [id number] Jun, [facility] [address] [place] [address] [id number] [place] [address] Jun, [facility] [address] [place] [id number] [place] [address] Jun, Forgetfulness R68.89 ; Pre-syncope R55 ; Localized edema R60.0 ; Other iron deficiency anemia D50.8 and BMI 50.0-59.9, adult Z68.43 [place] [address] [address] Jun, Chronic pain G89.29 [place] [address] [address] Jun, Chronic pain G89.29 [place] [address] [address] Jun, Bipolar I disorder, most recent episode (or current) mixed, moderate F31.62 [place] [address] [address] May, Chronic pain G89.29 [place] [address] [address] Apr, [place] [address] [address] Apr, Chronic pain G89.29 [place] [address] [address] Apr, Primary osteoarthritis of right knee M17 .11 [place] [address] [address] Mar, [place] [address] [address] Mar, BMI 50.0-59.9, adult Z68.43 and Bipolar disorder, in partial remission, most recent episode depressed F31.75 [place] [address] [address] Mar, Diabetes E11.9 ; Pure hypercholesterolem ia E78.00 ; Essential hypertension I10 ; Nausea with vomiting, unspecified R11.2 and Headache, unspecified headache type R51 [place] [address] [address] Mar, Bipolar I disorder, most recent episode (or current) mixed, moderate F31.62 [facility] [address] [address] Mar, Bipolar I disorder, most recent episode (or current) mixed, moderate F31.62 [facility] [address] [address] Mar, Chronic pain G89.29 [facility] [address] [address] Mar, Bipolar I disorder, most recent episode (or current) mixed, moderate F31.62 [facility] [address] [address] Feb, Bipolar I disorder, most recent episode (or current) mixed, moderate F31.62 [place] [address] [address] Feb, Chronic pain G89.29 [place] [address] [address] Feb, Decubitus ulcer of right foot, stage 3 L 89.893 and BMI 50.0-59.9, adult Z68.43 [place] [address] [address] Feb, Bipolar I disorder, most recent episode (or current) mixed, moderate F31.62 [place] [address] [address] Feb, [facility] [address] [address] January, [facility] [address] [address] January, Chronic pain G89.29 [facility] [address] [address] January, Bipolar I disorder, most recent episode (or current) mixed, moderate F31.62 [facility] [address] [address] January, Bipolar I disorder, most recent episode (or current) mixed, moderate F31.62 [place] [address] [address] Dec, Bipolar I disorder, most recent episode (or current) mixed, moderate F31.62 and BMI 50.0-59.9, adult Z68.43 [place] [address] [address] Dec, Bipolar I disorder, most recent episode (or current) mixed, moderate F31.62 [place] [address] [address] Dec, Chronic pain G89.29 [place] [address] [address] Dec, DM neuro manif type II E11.49 ; Right fl ank pain R10.9 ; group home 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 Z79.891 ; Encounter for medication monitoring Z51.81 and BMI 50.0-59.9, adult Z68.43 [place] [address] [address] Dec, Bipolar I disorder, most recent episode (or current) mixed, moderate F31.62 [place] [address] [address] Nov, Bipolar I disorder, most recent episode (or current) mixed, moderate F31.62 [place] [address] [address] Nov, Chronic pain G89.29 [place] [address] [address] Nov, Bipolar I disorder, most recent episode (or current) mixed, moderate F31.62 [place] [address] [address] Nov, Hypokalemia E87.6 [place] [address] [address] Nov, Bipolar I disorder, most recent episode (or current) mixed, moderate F31.62 [place] [address] [address] Oct, Chronic pain G89.29 [facility] [address] [address] Oct, BMI 50.0-59.9, adult Z68.43 and Bipolar I disorder, most recent episode (or current) mixed, moderate F31.62 [place] [address] [address] Oct, Bipolar I disorder, most recent episode (or current) mixed, moderate F31.62 [place] [address] [address] Oct, [place] [address] [address] Oct, Hypokalemia E87.6 [place] [address] [address] Oct, DM neuro manif type II E11.49 [place] [address] [address] Oct, Bipolar I disorder, most recent episode (or current) mixed, moderate F31.62 [place] [address] [address] Oct, Bipolar I disorder, most recent episode (or current) mixed, moderate F31.62 [place] [address] [address] 14 Oct, 2017 Hyperkalemia E87.5 ; Falling R29.6 ; BMI 50.0-59.9, adult Z68.43 and Acute left ankle pain M25.572 [place] [address] [address] Oct, DM neuro manif type II E11.49 [place] [address] [address] Oct, [place] [address] [address] Sep, Chronic pain G89.29 [place] [address] [address] Sep, [place] [address] [address] Sep, Bilateral primary osteoarthritis of knee M17.0 [place] [address] [address] Sep, Generalized edema R60.[address] [address] Sep, Bipolar I disorder, most recent episode (or current) mixed, moderate F31.[address] [address] Sep, Hypoxia R09.02 ; Other hypervolemia E87. 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 ; Anemia of chronic illness D63.8 and BMI 50.0-59.9, adult Z68.[address] [address] Sep, [address] [address] Sep, Bipolar I disorder, most recent episode (or current) mixed, moderate F31.62 [place] [address] [address] Aug, Chronic pain G89.29 [place] [address] [address] Aug, Generalized edema R60.1 [place] [address] [address] Aug, [address] [place] [address] Aug, [facility] [address] [place] [address] Aug, Bipolar I disorder, most recent episode (or current) mixed, moderate F31.62 [facility] [address] [address] Aug, Bipolar I disorder, most recent episode (or current) mixed, moderate F31.62 [place] [address] [address] Aug, Chronic pain G89.29 [place] [address] [place] [address] Jul, Bipolar I disorder, most recent episode (or current) mixed, moderate F31.62 [place] [address] [address] Jul, Bipolar I disorder, most recent episode (or current) mixed, moderate F31.62 and BMI 60.0-69.9, adult Z68.44 [place] [address] [address] Jul, Bipolar I disorder, most recent episode (or current) mixed, moderate F31.62 [place] [address] [address] Jul, Chronic pain G89.29 [place] [address] [address] Jul, Bipolar I disorder, most recent episode (or current) mixed, moderate F31.62 [place] [address] [address] Jun, Polyneuropathy associated with underlyin g disease G63 and Diabetes E11.9 [place] [address] [address] 16 Jun, 2017 Bipolar I disorder, most recent episode (or current) mixed, moderate F31.62 [place] [address] [address] Jun, Chronic pain G89.29 [facility] [address] [place] [address] 27 May, 2017 Bipolar I disorder, most recent episode (or current) mixed, moderate F31.62 [facility] [address] [address] May, Bipolar I disorder, most recent episode (or current) mixed, moderate F31.62 [facility] [address] [address] 20 May, 2017 Diabetic polyneuropathy associated with type 2 diabetes mellitus E11.42 [place] [address] [address] 18 May, 2017 Bipolar I disorder, most recent episode (or current) mixed, moderate F31.62 [place] [address] [address] 13 May, 2017 Bipolar I disorder, most recent episode (or current) mixed, moderate F31.62 [place] [address] [address] May, Chronic pain G89.29 [facility] [address] [place] [address] Apr, Bipolar I disorder, most recent episode (or current) mixed, moderate F31.62 [place] [address] [address] Apr, [place] [address] [address] Apr, Chronic pain G89.29 and DM neuro manif t ype II E11.49 [place] [address] [address] Apr, [facility] [address] [address] Apr, Bipolar I disorder, most recent episode (or current) mixed, moderate F31.62 [facility] [address] [address] Apr, Chronic pain G89.29 [facility] [address] [address] Apr, Iliotibial band syndrome, left M76.32 [facility] [address] [address] Apr, Bipolar I disorder, most recent episode (or current) mixed, moderate F31.62 [place] [address] [address] Mar, Bipolar I disorder, most recent episode (or current) mixed, moderate F31.62 [place] [address] [address] Mar, Bipolar I disorder, most recent episode (or current) mixed, moderate F31.62 [place] [address] [address] Mar, [place] [address] [address] Mar, Bipolar I disorder, most recent episode (or current) mixed, moderate F31.62 [place] [address] [address] Mar, Chronic pain G89.29 [place] [address] [address] Mar, Bipolar I disorder, most recent episode (or current) mixed, moderate F31.62 [place] [address] [address] Mar, Bipolar I disorder, most recent episode (or current) mixed, moderate F31.62 [place] [address] [address] Mar, Acute pain of left knee M25.562 ; Left h ip pain M25.552 ; Generalized edema R60.1 and Tongue swelling R22.0 [place] [address] [address] Mar, [facility] [address] [address] Feb, Chronic pain G89.29 [facility] [address] [address] Feb, Diabetes E11.9 [facility] [address] [address] January, Chronic pain G89.29 [facility] [address] [address] January, [place] [address] [address] January, Bipolar I disorder, most recent episode (or current) mixed, moderate F31.62 [place] [address] [address] Dec, Bipolar I disorder, most recent episode (or current) mixed, moderate F31.62 [place] [address] [address] Dec, Chronic pain G89.29 [facility] [address] [address] Dec, Bipolar I disorder, most recent episode (or current) mixed, moderate F31.62 [place] [address] [address] Dec, Diabetes E11.9 ; Essential hypertension I10 ; Chronic pain G89.29 and Morbid obesity E66.01 [facility] [address] [address] Dec, [place] [address] [address] Dec, Bipolar I disorder, most recent episode (or current) mixed, moderate F31.62 [place] [address] [address] Dec, Bipolar I disorder, most recent episode (or current) mixed, moderate F31.62 [facility] [address] [address] Nov, Chronic pain G89.29 [facility] [address] [address] Nov, Bipolar I disorder, most recent episode (or current) mixed, moderate F31.62 [facility] [address] [address] Nov, [facility] [address] [address] Nov, Bipolar I disorder, most recent episode (or current) mixed, moderate F31.62 [facility] [address] [address] Nov, Bipolar I disorder, most recent episode (or current) mixed, moderate F31.62 [facility] [address] [address] Nov, [facility] [address] [address] Nov, [facility] [address] [address] Nov, [facility] [address] [address] Oct, Chronic pain G89.29 [facility] [address] [address] Oct, Bipolar I disorder, most recent episode (or current) mixed, moderate F31.62 [facility] [address] [address] Oct, [facility] [address] [address] Oct, Chronic pain G89.29 ; Diabetes E11.9 ; A nxiety F41.9 and 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 [facility] [address] [address] Oct, [facility] [address] [address] Oct, Diabetes E11.9 [facility] [address] [address] Oct, Bipolar I disorder, most recent episode (or current) mixed, moderate F31.62 [facility] [address] [address] Sep, Chronic pain G89.29 [facility] [address] [address] Sep, Chronic pain G89.29 [facility] [address] [address] Aug, Chronic pain G89.29 [facility] [address] [address] Jul, [facility] [address] [address] Jul, Diabetes E11.9 [facility] [address] [address] Jul, Chronic pain G89.29 [facility] [address] [address] Jul, Bipolar I disorder, most recent episode (or current) mixed, moderate F31.62 [facility] [address] [address] Jun, Bipolar I disorder, most recent episode (or current) mixed, moderate F31.62 [facility] [address] [address] Jun, [facility] [address] [address] Jun, Bipolar I disorder, most recent episode (or current) mixed, moderate F31.62 [place] [address] [address] 30 May, 2016 Insomnia, unspecified type G47.00 [place] [address] [address] May, Bipolar I disorder, most recent episode (or current) mixed, moderate F31.62 [place] [address] [address] 14 May, 2016 [place] [address] [address] May, Bipolar I disorder, most recent episode (or current) mixed, moderate F31.62 [place] [address] [address] May, Diabetes E11.9 and Essential hypertensio n I10 [place] [address] [address] Apr, Chronic pain G89.29 [place] [address] [address] Apr, Bipolar I disorder, most recent episode (or current) mixed, moderate F31.62 [place] [address] [address] Apr, [place] [address] [address] Apr, [place] [address] [address] Mar, Chronic pain G89.29 ; Headache, unspecif ied headache type R51 ; Neuropathy G62.9 ; Pain of right hip joint M25.551 and Essential hypertension I10 [place] [address] [address] Mar, Chronic pain G89.29 [place] [address] [address] Mar, Bipolar I disorder, most recent episode (or current) mixed, moderate F31.62 [place] [address] [address] Feb, Bipolar I disorder, most recent episode (or current) mixed, moderate F31.62 and Insomnia, unspecified type G47.00 [place] [address] [address] Feb, Chronic pain G89.29 [place] [address] [place] [address] Feb, Bipolar I disorder, most recent episode (or current) mixed, moderate F31.62 [place] [address] [place] [address] January, Bipolar I disorder, most recent episode (or current) mixed, moderate F31.62 [place] [address] [address] January, Chronic pain G89.29 [place] [address] [address] January, Chronic pain G89.29 and Essential hypert ension I10 [place] [address] [address] January, Bipolar I disorder, most recent episode (or current) mixed, moderate F31.62 [place] [address] [address] Dec, [place] [address] [address] Dec, [place] [address] [address] Dec, [address] [address] Dec, [place] [address] [address] Nov, Reactive airway disease J45.909 [place] [address] Nov, [place] [address] [address] Nov, [place] [address] [address] Nov, [place] [address] [address] Nov, [place] [address] [address] Nov, Onychomycosis B35.1 ; Hammertoe M20.40 ; [place] or callus L84 and DM neuro manif type II E11.[address] [address] Nov, Chronic pain G89.29 ; Leukocytosis D72.8 29 and Diabetes E11.[address] [address] Nov, [place] [address] [address] Oct, Bronchitis J40 [place] [address] [address] Oct, [place] [address] [address] Oct, [place] [address] [address] Oct, Mastoiditis, unspecified laterality H70. 90 and Type 2 diabetes mellitus with complication E11.8 [place] [address] [address] Sep, [address] [address] Sep, Dysuria R30.0 ; Cough R05 ; Benign prost atic hyperplasia with lower urinary tract symptoms, unspecified morphology N40.1 ; Hypokalemia E87.6 and Eustachian tube dysfunction, unspecified laterality H69.80 [place] [address] [place] [id number] [place] [address] Sep, Moderate mixed bipolar I disorder F31.62 [facility] [address] [address] Sep, Hypokalemia E87.6 [facility] [address] [address] Sep, [facility] [address] [address] Sep, Upper respiratory tract infection, unspe cified type J06.9 [facility] [address] [address] Aug, [facility] [address] [address] Aug, Dysuria R30.0 [facility] [address] [address] Aug, [facility] [address] [address] Jul, [facility] [address] [address] Jul, [facility] [address] [address] Jul, [facility] [address] [address] Jul, [facility] [address] [address] Jun, [facility] [address] [address] Jun, [facility] [address] [address] Jun, [facility] [address] [address] May, [facility] [address] [address] May, Bipolar I disorder, most recent episode (or current) mixed, moderate 296.62 [facility] [address] [address] May, [facility] [address] [address] May, Bipolar I disorder, most recent episode (or current) mixed, moderate 296.62 and Major depressive disorder, recurrent episode, severe, specified as with psychotic behavior 296.34 [facility] [address] [address] May, Bipolar I disorder, most recent episode (or current) mixed, moderate 296.62 [facility] [address] [address] May, [facility] [address] [address] Apr, [facility] [address] [address] Apr, [facility] [address] [address] Apr, Unspecified disorder of kidney and urete r 593.9 and Diabetes mellitus type 2, uncontrolled 250.02 [facility] [address] [address] Apr, [facility] [address] [address] Apr, [facility] [address] [address] Apr, [facility] [address] [address] Apr, [facility] [address] [address] Apr, Diabetes mellitus type II, uncontrolled 250.02 [facility] [address] [address] Apr, [facility] [address] [address] Mar, [facility] [address] [address] Mar, [facility] [address] [address] Mar, [facility] [address] [address] Mar, Major depressive disorder, recurrent epi sode, severe, specified as with psychotic behavior 296.34 and Bipolar I disorder, most recent episode (or current) mixed, moderate 296.62 [facility] [address] [address] Mar, Diabetes 250.00 ; Anuria 788.5 ; Nausea and vomiting 787.01 and Diarrhea 787.91 [facility] [address] [address] Mar, Diabetes 250.00 [facility] [address] [address] Mar, [facility] [address] [address] Mar, Diabetes 250.00 [facility] [address] [address] Mar, [facility] [address] [address] Mar, [facility] [address] [address] Mar, [facility] [address] [address] Mar, [facility] [address] [address] Mar, Bipolar I disorder, most recent episode (or current) mixed, moderate 296.62 and Major depressive disorder, recurrent episode, severe, specified as with psychotic behavior 296.34 [place] [address] [address] Mar, Magnesium deficiency 275.2 ; Hypokalemia 276.8 ; Nausea & vomiting 787.01 and Diabetes mellitus type 2, uncontrolled 250.02 [facility] [address] [address] Feb, [place] [address] [address] Feb, Bipolar I disorder, most recent episode (or current) mixed, moderate 296.62 [place] [address] [address] Feb, Nausea and vomiting 787.01 ; Left elbow pain 719.42 ; Anuria 788.5 and Diabetes 250.00 [place] [address] [address] Feb, [address] [address] Feb, Hypopotassemia 276.8 and Hypokalemia [address] [address] Feb, Hypopotassemia 276.8 and Hypokalemia 276 .8 [place] [address] [address] Feb, Seborrheic keratoses 702.[address] [address] Feb, Hypopotassemia 276.8 and Low magnesium l evels 275.[address] [address] January, [place] [address] [address] January, [place] [address] [address] January, [place] [id number] [place] [address] January, Scalp lesion 709.9 [facility] [address] [id number] [place] [address] January, [facility] [address] [place] [id number] [place] [address] 30 Dec, 2014 Tear of medial cartilage or meniscus of knee, current 836.0 and 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 [facility] [id number] [place] [address] Dec, [facility] [address] [address] [id number] [place] [address] Dec, [facility] [address] [address] Dec, Squamous cell carcinoma, 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 42 [facility] [address] [address] [id number] [place] [address] 14 Dec, 2014 [facility] [address] [id number] [place] [address] Dec, [facility] [id number] [place] [address] Nov, [facility] [address] [place] [id number] [place] [address] Nov, [facility] [address] [place] [id number] [place] [address] Nov, [facility] [address] [place] [id number] [place] [address] Nov, [facility] [address] [place] [id number] [place] [address] Nov, [facility] [id number] [place] [address] Nov, [facility] [address] [place] [address] [id number] [place] [address] Nov, [facility] [address] [address] [id number] [place] [address] Nov, [facility] [address] [id number] [place] [address] Nov, [facility] [address] [id number] [place] [address] Nov, [facility] [address] [id number] [place] [address] Nov, [facility] [address] [id number] [place] [address] Nov, [facility] [address] [id number] [place] [address] Oct, 2014 [facility] [address] [id number] [place] [address] Oct, 2014 [facility] [address] [id number] [place] [address] Oct, 2014 [facility] [address] [id number] [place] [address] Oct, 2014 [facility] [address] [id number] [place] [address] Oct, 2014 [facility] [address] [id number] [place] [address] Oct, 2014 [facility] [address] [id number] [place] [address] Oct, [facility] [address] [id number] [place] [address] Oct, 2014 [facility] [address] [id number] [place] [address] Oct, [facility] [address] [id number] [place] [address] Sep, [facility] [address] [id number] [place] [address] Sep, [facility] [address] [id number] [place] [address] Sep, [facility] [address] [id number] [place] [address] Sep, [facility] [address] [id number] [place] [address] Sep, [facility] [address] [id number] [place] [address] Sep, [facility] [address] [id number] [place] [address] Sep, [facility] [address] [id number] [place] [address] Sep, [facility] [address] [id number] [place] [address] Sep, [facility] [address] [id number] [place] [address] Sep, [facility] [address] [id number] [place] [address] Sep, [facility] [address] [id number] [place] [address] Sep, [facility] [address] [id number] [place] [address] Sep, [facility] [address] [id number] [place] [address] Sep, [facility] [address] [id number] [place] [address] Sep, [facility] [address] [id number] [place] [address] Sep, [facility] [address] [id number] [place] [address] Aug, [facility] [address] [id number] [place] [address] Aug, [facility] [address] [id number] [place] [address] Aug, [facility] [address] [id number] [place] [address] Aug, [facility] [address] [id number] [facility] [place] [address] Aug, [facility] [address] [facility] [id number] [facility] [place] [address] Aug, [facility] [address] [facility] [id number] [place] [address] Aug, [facility] [address] [facility] [id number] [place] [address] Aug, [facility] [address] [facility] [id number] [place] [address] Aug, [facility] [address] [facility] [id number] [facility] [place] [address] Aug, [facility] [address] [id number] [place] [address] Aug, [facility] [place] [address] [place] [id number] Aug, [facility] [address] [facility] [id number] [place] [address] Aug, [facility] [address] [id number] [place] [address] Aug, [facility] [address] [id number] [place] [address] Aug, [facility] [address] [id number] [place] [address] Aug, [facility] [address] [id number] [place] [address] Aug, [facility] [address] [id number] [place] [address] Aug, [facility] [address] [facility] [id number] [place] [address] Aug, [facility] [address] [id number] [place] [address] Aug, [facility] [address] [id number] [place] [address] 08 Aug, 2014 [facility] [address] [id number] [place] [address] Aug, [facility] [address] [id number] [place] [address] Aug, [facility] [address] [id number] [place] [address] Aug, [facility] [address] [id number] [place] [address] Aug, [facility] [address] [id number] [place] [address] Aug, [facility] [address] [id number] [place] [address] Aug, [facility] [address] [id number] [place] [address] Aug, [facility] [address] [id number] [place] [address] Aug, [facility] [address] [id number] [place] [address] Aug, [facility] [address] [id number] [place] [address] Jul, [facility] [address] [id number] [place] [address] Jul, [facility] [address] [id number] [place] [address] Jul, [facility] [address] [id number] [place] [address] Jul, [facility] [address] [id number] [place] [address] Jul, [facility] [address] [id number] [place] [address] Jul, [facility] [address] [id number] [place] [address] Jul, [facility] [address] [id number] [place] [address] Jul, [facility] [address] [id number] [place] [address] Jul, [facility] [address] [id number] [place] [address] Jul, [facility] [address] [id number] [place] [address] Jun, [facility] [address] [id number] [place] [address] Jun, [facility] [address] [id number] [place] [address] Jun, [facility] [address] [id number] [place] [address] Jun, [facility] [address] [id number] [place] [address] Jun, [facility] [address] [id number] [place] [address] Jun, [facility] [address] [id number] [place] [address] Jun, [facility] [address] [id number] [place] [address] Jun, [facility] [address] [id number] [place] [address] Jun, [facility] [address] [id number] [place] [address] Jun, [facility] [address] [id number] [place] [address] 29 May, 2014 [facility] [address] [id number] [place] [address] 29 May, 2014 [facility] [address] [id number] [place] [address] May, [facility] [address] [id number] [place] [address] May, [facility] [place] [facility] [address] [id number] [place] [address] 17 May, 2013 [facility] [place] [facility] [address] [id number] [facility] [place] [address] 17 May, 2013 [facility] [place] [facility] [address] [id number] [place] [address] 15 May, 2013 [facility] [place] [facility] [address] [id number] [facility] [place] [address] 15 May, 2013 [facility] [place] [facility] [address] [facility] [id number] [place] [address] 15 May, 2013 [facility] [place] [facility] [address] [id number] [place] [address] 15 May, 2013 [facility] [place] [facility] [address] [id number] [place] [address] 10 May, 2013 [facility] [place] [facility] [address] [id number] [place] [address] 10 May, 2013 [facility] [place] [facility] [address] [id number] [place] [address] 09 May, 2013 [facility] [place] [facility] [address] [id number] [place] [address] 09 May, 2013 [facility] [place] [facility] [address] [id number] [place] [address] 04 May, 2013 [facility] [place] [facility] [address] [id number] [place] [address] May, 2013 [facility] [place] [facility] [address] [id number] [place] [address] Apr, [facility] [place] [facility] [address] [id number] [place] [address] Apr, [facility] [place] [facility] [address] [id number] [place] [address] Apr, [facility] [place] [facility] [address] [id number] [place] [address] Apr, [facility] [place] [facility] [address] [id number] [place] [address] Apr, [facility] [place] [facility] [address] [id number] [place] [address] Apr, [facility] [place] [facility] [address] [facility] [id number] [facility] [place] [address] Apr, [facility] [place] [facility] [address] [facility] [id number] [facility] [place] [address] Apr, [facility] [place] [facility] [address] [facility] [id number] [place] [address] Apr, [facility] [place] [facility] [address] [facility] [id number] [place] [address] Apr, [facility] [place] [facility] [address] [facility] [id number] [facility] [place] [address] Apr, [facility] [place] [facility] [address] [id number] [facility] [place] [address] Apr, [facility] [place] [facility] [address] [id number] [facility] [place] [address] Apr, [facility] [place] [facility] [address] [facility] [id number] [facility] [place] [address] Apr, [facility] [place] [facility] [address] [id number] [facility] [place] [address] Apr, [facility] [place] [facility] [address] [id number] [place] [address] Mar, [facility] [place] [facility] [address] [id number] [facility] [place] [address] Mar, [facility] [place] [facility] [address] [facility] [id number] [facility] [place] [address] Mar, [facility] [place] [facility] [address] [id number] [facility] [place] [address] Mar, [facility] [place] [facility] [address] [facility] [id number] [facility], [place] [address] Mar, [facility] [address] [id number] [facility] [place] [address] Mar, [facility] [address] [facility] [id number] [place] [address] Mar, 2013 [facility] [address] [facility] [id number] [place] [address] Mar, 2013 [facility] [address] [id number] [place] [address] Mar, 2013 [facility] [address] [id number] [place] [address] Mar, 2013 [facility] [address] [facility] [id number] [place] [address] Mar, 2013 [facility] [address] [id number] [place] [address] Mar, 2013 [facility] [address] [id number] [place] [address] Mar, 2013 [facility] [address] [id number] [place] [address] Mar, 2013 [facility] [address] [id number] [place] [address] Mar, 2013 [facility] [address] [id number] [place] [address] Mar, 2013 [facility] [address] [id number] [place] [address] Mar, 2013 [facility] [address] [id number] [place] [address] Mar, 2013 [facility] [address] [id number] [place] [address] Feb, [facility] [address] [facility] [id number] [place] [address] Feb, [facility] [address] [id number] [place] [address] Feb, [facility] [address] [id number] [place] [address] Feb, [facility] [address] [id number] [place] [address] Feb, [facility] [address] [facility] [id number] [place] [address] Feb, [facility] [address] [facility] [id number] [facility] [place] [address] Feb, [facility] [address] [facility] [id number] [place] [address] Feb, [facility] [address] [id number] [facility] [place] [address] Feb, [facility] [address] [facility] [id number] [facility] [place] [address] Feb, [facility] [address] [id number] [place] [address] Feb, [facility] [address] [id number] [place] [address] Feb, [facility] [address] [id number] [place] [address] Feb, [facility] [address] [id number] [place] [address] Feb, [facility] [address] [id number] [place] [address] January, [facility] [address] [id number] [place] [address] January, [facility] [address] [id number] [place] [address] January, [facility] [address] [facility] [id number] [place] [address] January, [facility] [address] [id number] [place] [address] January, [facility] [address] [id number] [place] [address] January, [facility] [address] [id number] [place] [address] January, [facility] [address] [id number] [facility] [place] [address] January, [facility] [address] [id number] [facility] [place] [address] January, [facility] [address] [facility] [id number] [place] [address] January, [facility] [address] [id number] [place] [address] January, [facility] [address] [id number] [place] [address] January, [facility] [address] [facility] [id number] [facility] [place] [address] January, [facility] [address] [id number] [place] [address] January, [facility] [address] [id number] [place] [address] Dec, [facility] [address] [id number] [place] [address] Dec, [facility] [address] [id number] [facility] [place] [address] Dec, [facility] [address] [id number] [place] [address] Dec, [facility] [address] [id number] [place] [address] Dec, [facility] [address] [id number] [facility] [place] [address] Dec, [facility] [address] [facility] [id number] [place] [address] Dec, [facility] [address] [id number] [place] [address] Dec, [facility] [address] [id number] [place] [address] Dec, [facility] [address] [id number] [place] [address] Dec, [facility] [address] [facility] [id number] [place] [address] Nov, [facility] [address] [id number] [place] [address] Nov, [facility] [address] [id number] [place] [address] Nov, [facility] [address] [id number] [place] [address] Nov, [facility] [address] [id number] [place] [address] Nov, [facility] [address] [id number] [place] [address] Nov, [facility] [address] [id number] [place] [address] Nov, [facility] [address] [id number] [place] [address] Nov, [facility] [address] [id number] [place] [address] Nov, [facility] [address] [id number] [place] [address] Nov, [facility] [address] [id number] [place] [address] Oct, [facility] [address] [id number] [place] [address] Oct, [facility] [address] [id number] [place] [address] Oct, [facility] [address] [facility] [id number] [place] [address] Oct, [facility] [address] [id number] [place] [address] Oct, [facility] [address] [id number] [place] [address] Oct, [facility] [address] [id number] [place] [address] 14 Oct, 2013 [facility] [address] [id number] [place] [address] Oct, [facility] [address] [id number] [place] [address] Oct, [facility] [address] [id number] [place] [address] Oct, [facility] [address] [id number] [place] [address] Oct, [facility] [address] [id number] [place] [address] Oct, [facility] [address] [id number] [place] [address] Oct, [facility] [address] [id number] [place] [address] Oct, [facility] [address] [id number] [place] [address] Sep, [facility] [address] [id number] [place] [address] Sep, [facility] [address] [id number] [place] [address] Sep, [facility] [address] [id number] [place] [address] Sep, [facility] [address] [id number] [place] [address] Sep, [facility] [address] [id number] [place] [address] Sep, [facility] [address] [id number] [place] [address] Sep, [facility] [address] [id number] [place] [address] Sep, [facility] [address] [id number] [place] [address] Sep, [facility] [address] [id number] [place] [address] Sep, [facility] [address] [id number] [place] [address] Aug, [facility] [address] [id number] [place] [address] Aug, [facility] [address] [id number] [place] [address] Jul, [facility] [address] [id number] [place] [address] Jul, [facility] [address] [id number] [place] [address] Jul, [facility] [address] [id number] [place] [address] Jul, [facility] [address] [id number] [place] [address] Jul, [facility] [address] [id number] [place] [address] Jul, [facility] [address] [id number] [place] [address] Jul, [facility] [address] [id number] [place] [address] Jul, [facility] [address] [id number] [place] [address] Jul, [facility] [address] [id number] [place] [address] Jul, [facility] [address] [id number] [place] [address] Jul, [facility] [address] [id number] [place] [address] Jul, [facility] [address] [id number] [place] [address] Jul, [facility] [address] [id number] [place] [address] Jul, 2012 [facility] [address] [id number] [place] [address] Jul, 2012 [facility] [address] [id number] [place] [address] Jul, 2012 [facility] [address] [id number] [place] [address] Jul, 2012 [facility] [address] [id number] [place] [address] Jul, 2012 [facility] [address] [id number] [place] [address] Jul, 2012 [facility] [address] [id number] [place] [address] Jun, 2012 [facility] [address] [id number] [place] [address] Jun, 2012 [facility] [address] [id number] [place] [address] Jun, 2012 [facility] [address] [id number] [place] [address] Jun, 2012 [facility] [address] [id number] [place] [address] Jun, 2012 [facility] [address] [id number] [place] [address] Jun, 2012 [facility] [address] [id number] [place] [address] Jun, 2012 [facility] [address] [id number] [place] [address] Jun, 2012 [facility] [address] [id number] [place] [address] Jun, 2012 [facility] [address] [id number] [place] [address] Jun, 2012 [facility] [address] [id number] [place] [address] Jun, 2012 [facility] [address] [id number] [place] [address] 26 May, 2012 [facility] [address] [id number] [place] [address] 25 May, 2012 [facility] [address] [id number] [place] [address] 19 May, 2012 [facility] [address] [id number] [place] [address] 17 May, 2012 [facility] [address] [id number] [place] [address] 11 May, 2012 [facility] [address] [id number] [place] [address] 10 May, 2012 [facility] [address] [id number] [place] [address] May, [facility] [address] [id number] [place] [address] 05 May, 2013 [facility] [address] [id number] [place] [address] Apr, [facility] [address] [id number] [place] [address] Apr, [facility] [address] [id number] [place] [address] Apr, [facility] [address] [id number] [place] [address] Apr, [facility] [address] [id number] [place] [address] Apr, [facility] [address] [id number] [place] [address] Mar, [facility] [address] [id number] [place] [address] Mar, [facility] [address] [id number] [place] [address] Mar, [facility] [address] [id number] [place] [address] Mar, [facility] [address] [id number] [place] [address] Mar, [facility] [address] [id number] [place] [address] Mar, [facility] [address] [id number] [place] [address] Mar, [facility] [address] [id number] [place] [address] Mar, [facility] [address] [id number] [place] [address] Feb, [facility] [address] [id number] [place] [address] Feb, [facility] [address] [id number] [place] [address] January, [facility] [address] [id number] [place] [address] January, [facility] [address] [id number] [place] [address] Dec, [facility] [address] [id number] [place] [address] Dec, [facility] [address] [id number] [place] [address] Nov, [facility] [address] [id number] [place] [address] Nov, [facility] [address] [id number] [place] [address] Nov, [facility] [address] [id number] [place] [address] Nov, [facility] [address] [id number] [place] [address] Oct, [facility] [address] [id number] [place] [address] Oct, [facility] [address] [id number] [place] [address] Oct, [facility] [address] [id number] [place] [address] Oct, [facility] [address] [id number] [place] [address] 16 Oct, 2012 [facility] [address] [id number] [place] [address] 14 Oct, 2012 [facility] [address] [id number] [place] [address] 08 Oct, 2012 [facility] [address] [id number] [place] [address] Oct, [facility] [address] [id number] [place] [address] Oct, [facility] [address] [id number] [place] [address] Sep, [facility] [address] [id number] [place] [address] Sep, [facility] [address] [id number] [place] [address] Sep, [facility] [address] [id number] [place] [address] Sep, [facility] [address] [id number] [place] [address] Sep, [facility] [address] [id number] [place] [address] Sep, [facility] [address] [id number] [place] [address] Sep, [facility] [id number] [place] [address] Sep, [facility] [address] [id number] [place] [address] Aug, [facility] [address] [id number] [place] [address] Aug, [facility] [address] [id number] [place] [address] Aug, [facility] [address] [id number] [place] [address] Aug, [facility] [address] [id number] [place] [address] Aug, [facility] [address] [id number] [place] [address] Aug, [facility] [address] [id number] [place] [address] Aug, [facility] [address] [id number] [place] [address] Aug, [facility] [address] [id number] [place] [address] Jul, [facility] [address] [id number] [place] [address] Jul, [facility] [address] [id number] [place] [address] Jul, [facility] [address] [id number] [place] [address] Jul, [facility] [address] [id number] [place] [address] Jul, [facility] [address] [id number] [place] [address] Jul, [facility] [address] [id number] [place] [address] Jun, [facility] [address] [id number] [place] [address] Jun, [facility] [id number] [place] [address] Jun, [facility] [address] [id number] [place] [address] Jun, [facility] [address] [id number] [place] [address] Jun, [facility] [address] [facility] [id number] [place] [address] Jun, [facility] [address] [facility] [id number] [place] [address] Jun, [facility] [address] [id number] [place] [address] Jun, [facility] [address] [id number] [place] [address] Jun, [facility] [address] [facility] [id number] [place] [address] May, [facility] [address] [id number] [place] [address] 24 May, 2012 [facility] [address] [id number] [place] [address] May, [facility] [address] [id number] [place] [address] Apr, [facility] [address] [id number] [place] [address] Apr, [facility] [address] [id number] [place] [address] Apr, [facility] [address] [id number] [place] [address] Apr, [facility] [address] [id number] [place] [address] Apr, [facility] [address] [id number] [place] [address] Apr, [facility] [address] [id number] [place] [address] Mar, [facility] [address] [id number] [place] [address] Mar, [facility] [address] [id number] [place] [address] Mar, [facility] [address] [id number] [place] [address] Mar, [facility] [address] [id number] [place] [address] Feb, [facility] [address] [id number] [place] [address] Feb, [facility] [address] [id number] [place] [address] Feb, [facility] [address] [id number] [place] [address] Feb, [facility] [address] [id number] [place] [address] Feb, [facility] [address] [id number] [place] [address] January, [facility] [address] [id number] [place] [address] January, [facility] [address] [id number] [place] [address] January, [facility] [address] [id number] [place] [address] January, [facility] [address] [id number] [place] [address] January, [facility] [address] [id number] [place] [address] January, [facility] [address] [id number] [place] [address] Dec, [facility] [address] [id number] [place] [address] Dec, [facility] [address] [id number] [place] [address] Dec, [facility] [address] [id number] [place] [address] Dec, [facility] [address] [id number] [place] [address] Dec, [facility] [address] [id number] [place] [address] 27 Nov, 2011 [facility] [address] [id number] [place] [address] 14 Nov, 2011 [facility] [address] [id number] [place] [address] 12 Nov, 2011 [facility] [address] [id number] [place] [address] 07 Nov, 2011 [facility] [address] [id number] [place] [address] 29 Oct, 2011 [facility] [address] [id number] [place] [address] 28 Oct, 2011 [facility] [address] [id number] [place] [address] 24 Oct, 2011 [facility] [id number] [place] [address] 13 Oct, 2011 [facility] [address] [facility] [id number] [place] [address] 08 Oct, 2011 [facility] [address] [id number] [place] [address] Sep, [facility] [address] [id number] [place] [address] 30 Sep, 2011 [facility] [address] [id number] [place] [address] Sep, [facility] [address] [id number] [place] [address] Sep, [facility] [address] [id number] [place] [address] Sep, [facility] [address] [id number] [place] [address] 05 Sep, 2011 [facility] [address] [id number] [place] [address] Aug, [facility] [address] [id number] [place] [address] Aug, [facility] [address] [facility] [id number] [place] [address] Aug, [facility] [address] [facility] [id number] [place] [address] Jul, [facility] [address] [id number] [place] [address] Jul, [facility] [address] [id number] [place] [address] Jul, [facility] [address] [facility] [id number] [facility] [place] [address] Jul, [facility] [address] [id number] [place] [address] Jun, [facility] [address] [id number] [place] [address] Jun, [facility] [address] [id number] [place] [address] Jun, [facility] [address] [id number] [place] [address] Jun, [facility] [address] [id number] [place] [address] Jun, [facility] [address] [id number] [place] [address] Jun, [facility] [address] [id number] [place] [address] Mar, [facility] [address] [facility] [id number] [place] [address] Dec, [facility] [address] [id number] [place] [address] Dec, [facility] [address] [id number] [place] [address] Nov, [facility] [address] [id number] [place] [address] 16 Nov, 2010 [facility] [address] [id number] [place] [address] 10 Sep, 2010 [facility] [address] [id number] [place] [address] 31 Aug, 2010 [facility] [address] [id number] [place] [address] 29 Aug, 2010 [facility] [address] [id number] [place] [address] 29 Aug, 2010 [facility] [address] [id number] [place] [address] 29 Aug, 2010 [facility] [address] [id number] [place] [address] 27 Aug, 2010 [facility] [address] [id number] [place] [address] 14 Aug, 2010 [facility] [address] [id number] [place] [address] 08 Aug, 2010 [facility] [address] [id number] [place] [address] 08 Aug, 2010 [facility] [address] [id number] [place] [address] 07 Aug, 2010 [facility] [address] [id number] [place] [address] 06 Aug, 2010 [facility] [address] [id number] [place] [address] 06 Aug, 2010 [facility] [address] [id number] [place] [address] Aug, [facility] [address] [id number] [place] [address] 30 Jul, 2010 [facility] [address] [id number] [place] [address] 30 Jul, 2010 [facility] [address] [id number] [place] [address] 30 Jul, 2010 [facility] [address] [id number] [place] [address] Jul, [facility] [address] [id number] [place] [address] Jul, [facility] [address] [id number] [place] [address] Jul, [facility] [address] [id number] [place] [address] 24 Jun, 2010 [facility] [address] [id number] [place] [address] Jun, [facility] [address] [id number] [place] [address] Jun, [facility] [address] [id number] [place] [address] Jun, [facility] [address] [id number] [place] [address] Apr, [facility] [address] [id number] [place] [address] Mar, [facility] [address] [id number] [place] [address] Feb, [facility] [address] [id number] [place] [address] January, [facility] [address] [id number] [place] [address] 15 Dec, 2009 [facility] [address] [id number] [place] [address] Nov, [facility] [address] [id number] [place] [address] Aug, [facility] [address] [id number] [place] [address] Aug, [facility] [address] [id number] [place] [address] 07 Aug, 2009 [facility] [address] [id number] [place] [address] Jul, [facility] [address] [id number] [place] [address] Jul, [facility] [address] [id number] [place] [address] Jul, [facility] [address] [id number] [place] [address] Jun, [facility] [address] [id number] [place] [address] Jun, [facility] [id number] [place] [address] Jun, [facility] [address] [id number] [place] [address] Jun, [facility] [address] [id number] [place] [address] Jun, [facility] [address] [id number] [place] [address] Jun, [facility] [id number] [place] [address] Apr, [facility] [address] [id number] [place] [address] Apr, [facility] [address] [id number] [place] [address] Feb, [facility] [address] [id number] [place] [address] January, [facility] [address] [id number] [place] [address] Dec, IMMUNIZATIONS No Known Immunizations SOCIAL HISTORY [...] obesity Medical History skin cancer-basal cell R gnosticism (removed ) Medical History Arthritis Medical History [...] release (Left) 2000 Surgical History EGD ([facility]) 2009 Surgical History colonoscopy 2009 ([facility]), 2013 ([facility] ) Surgical History heart cath: CAD w/ [...] inability to urinate 09/16/15 [address] [facility] inpatient mental health ea rly 1999's Hospitalization History hyperkalemia 10/2017 Hospitalization History fluid in lung
--- OUTSIDE RECORDS SUMMARY | 2020-03-01 16:53 | XMS REPORT ---
Author Author Michele WASHBURN Organization [facility] Address [address] [place] [address] Care Team Providers Care Rehabilitation Worker Name Role Phone NOEMI WASHBURN Unavailable PROBLEMS Type Condition ICD9-CM Code FQE48-WO Code Onset Dates Condition S tatus SNOMED Code Problem DM neuro manif type II E11.49 Active 89257727 Problem Chronic pain G89.29 Active 1691180 1 Problem Diabetes E11.9 Active 24180721 Problem Reactive airway disease J45.909 Active 218276333439 Problem Leukocytosis D72.829 Active 9539500 06 Problem Insomnia, unspecified type G47.00 Act sharon 362476507 Problem Bipolar I disorder, most recent episode (or curr ent) mixed, moderate F31.62 Active 59277601 Problem Primary osteoarthritis of right knee M17.11 Active 757881198387772 Problem Cough R05 Active 71689643 Problem Pure hypercholesterolemia E78.00 Acti ve 068310430 Problem Dysuria R30.0 Active 13058686 Problem Benign prostatic hyperplasia with lower urinary tract symptoms, unspecified morphology N40.1 Active 39315 6007 Problem Eustachian tube dysfunction, unspecified laterality H69.80 Active 74878919 Problem Polyneuropathy associated with underlying disease G63 Active 422359529 Problem Diabetic polyneuropathy associated with type 2 d iabetes mellitus E11.42 Active 65631673 Problem Anemia of chronic illness D63.8 Acti ve 185546640 Problem Chronic lymphocytic leukemia C91.10 A ctive 53864080 Problem Bilateral primary osteoarthritis of knee M17.0 Active 186124791 Problem 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 Active 756845530 Problem Eye exam abnormal R93.8 Active 16 4367480 Problem Retinal edema H35.81 Active 522287 6 Problem Lymphocytosis D72.820 Active 541801 09 Problem Bipolar disorder, in partial remission, most rec ent episode depressed F31.75 Active 47446387 Problem Hypokalemia E87.6 Active 69062143 Problem Falling R29.6 Active 542344761 Problem Pressure ulcer of other site, stage 3 L89.893 Active 373493765 Problem Other iron deficiency anemia D50.8 A ctive 55085433 Problem Mild cognitive impairment G31.84 Acti ve 134269416 Problem Skin cancer C44.90 Active 62793097 7 Problem detention (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 Z79.4 Active 838997642 Problem Morbid obesity E66.01 Active 43619 6002 Problem Mood disorder F39 Active 072542 05 Problem Anxiety F41.9 Active 72024463 Problem Essential hypertension I10 Active 36984634 Problem Bipolar disorder F31.9 Active 137 86636 Problem Chronic diastolic (congestive) heart failure I50.3 2 Active 346994838 Problem Psychophysiological insomnia F51.04 A ctive 039003150 Problem Type 2 diabetes mellitus with diabetic neuropathy, uns pecified E11.40 Active 11925994 ALLERGIES No Information ENCOUNTERS Encounter Location Date Diagnosis [place] [address] [address] Oct, [place] [address] [address] Oct, [place] [address] [address] Sep, Mood disorder F39 [place] [address] [address] Sep, Bipolar disorder, in partial remission, most recent episode depressed F31.75 and Mild cognitive impairment G31.84 [place] [address] [address] Sep, Mood disorder F39 [place] [address] [address] Sep, [place] [address] [address] Sep, Mood disorder F39 [place] [address] [address] Sep, [place] [address] [place] [id number] [place] [address] Aug, Mood disorder F39 [facility] [address] [id number] [place] [address] Aug, [facility] [address] [id number] [place] [address] Aug, [facility] [address] [id number] [place] [address] Aug, [facility] [address] [id number] [place] [address] Aug, [facility] [address] [id number] [place] [address] Aug, [facility] [address] [place] [id number] [place] [address] Aug, [facility] [address] [id number] [place] [address] Aug, [facility] [address] [id number] [place] [address] Aug, Essential hypertension I10 [facility] [address] [place] [id number] [place] [address] Aug, Bipolar disorder, in partial remission, most recent episode depressed F31.75 and Mild cognitive impairment G31.84 [facility] [address] [place] [id number] [place] [address] Aug, Mood disorder F39 [facility] [address] [id number] [place] [address] Aug, [facility] [address] [id number] [place] [address] Aug, Bipolar disorder, in partial remission, most recent episode depressed F31.75 and Mild cognitive impairment G31.84 [facility] [address] [place] [id number] [place] [address] Jul, Bipolar disorder, in partial remission, most recent episode depressed F31.75 and Mild cognitive impairment G31.84 [facility] [address] [place] [id number] [place] [address] Jul, Psychophysiological insomnia F51.04 [facility] [address] [address] Jul, [facility] [address] [address] Jul, [facility] [address] [address] Jul, [facility] [address] [address] Jul, [facility] [address] [address] Jul, [facility] [address] [address] Jul, [facility] [address] [address] Jul, Bipolar disorder, in partial remission, most recent episode depressed F31.75 and Mild cognitive impairment G31.84 [facility] [address] [address] Jul, Chronic pain G89.29 ; Diabetes E11.9 ; E ssential hypertension I10 ; Ill feeling R68.89 ; Local infection of the skin and subcutaneous tissue, unspecified L08.9 and Other injury of unspecified body region, initial encounter T14.8XXA [facility] [address] [address] Jun, Bipolar disorder, in partial remission, most recent episode depressed F31.75 and Mild cognitive impairment G31.84 [facility] [address] [address] Jun, [facility] [address] [address] Jun, Bipolar disorder, in partial remission, most recent episode depressed F31.75 and Mild cognitive impairment G31.84 [facility] [address] [address] Jun, Psychophysiological insomnia F51.04 [facility] [address] [address] Jun, Psychophysiological insomnia F51.04 ; Ch ronic pain G89.29 ; Bipolar I disorder, most recent episode (or current) mixed, moderate F31.62 ; 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 ; Polyneuropathy associated with underlying disease G63 ; Type 2 diabetes mellitus with diabetic neuropathy, unspecified E11.40 ; detention (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 Z79.4 and Hyperglycemia R73.9 [place] [address] [address] Jun, Bipolar disorder, in partial remission, most recent episode depressed F31.75 and Mild cognitive impairment G31.84 [place] [address] [address] Jun, [place] [address] [address] Jun, Bipolar disorder F31.9 [place] [address] [address] May, Bipolar disorder, in partial remission, most recent episode depressed F31.75 and Mild cognitive impairment G31.84 [place] [address] [address] May, [place] [address] [address] Apr, Chronic pain G89.29 and Bipolar disorder F31.9 [facility] [address] [address] Mar, Bipolar disorder F31.9 and Chronic pain G89.29 [facility] [address] [address] Feb, Bipolar disorder F31.9 [facility] [address] [address] Feb, Cellulitis of right upper extremity L03. 113 and Skin abrasion T14.8XXA [facility] [address] [address] Feb, Bipolar disorder, in partial remission, most recent episode depressed F31.75 and Mild cognitive impairment G31.84 [facility] [address] [address] Feb, Chronic pain G89.29 [facility] [address] [address] Feb, Bipolar disorder, in partial remission, most recent episode depressed F31.75 and Mild cognitive impairment G31.84 [place] [address] [address] January, Bipolar disorder, in partial remission, most recent episode depressed F31.75 and Mild cognitive impairment G31.84 [place] [address] [address] January, Chronic pain G89.29 and Bipolar disorder F31.9 [place] [address] [address] January, Bipolar disorder, in partial remission, most recent episode depressed F31.75 and Mild cognitive impairment G31.84 [place] [address] [address] Dec, [place] [address] [address] Dec, Chronic pain G89.29 and Bipolar disorder F31.9 [facility] [address] [address] Dec, Edema of both lower extremities R60.0 [place] [address] [address] Dec, Bipolar disorder F31.9 [facility] [address] [address] Dec, Bipolar disorder, in partial remission, most recent episode depressed F31.75 and Mild cognitive impairment G31.84 [place] [address] [address] Nov, [place] [address] [address] Nov, Chronic pain G89.29 [place] [address] [address] Nov, Bipolar disorder, in partial remission, most recent episode depressed F31.75 and Mild cognitive impairment G31.84 [place] [address] [address] Nov, Bipolar disorder F31.9 [place] [address] [address] 04 Nov, 2018 Encounter for Medicare annual [...] unspecified morphology N40.1 and Essential hypertension I10 [place] [address] [address] Oct, Chronic pain G89.29 [place] [address] [address] Oct, Diabetes E11.9 [place] [address] [address] Oct, Bipolar I disorder, most recent episode (or current) mixed, moderate F31.62 and Mild cognitive impairment G31.84 [place] [address] [address] Oct, Bipolar I disorder, most recent episode (or current) mixed, moderate F31.62 and Mild cognitive impairment G31.84 [place] [address] [address] Sep, Bipolar I disorder, most recent episode (or current) mixed, moderate F31.62 and Mild cognitive impairment G31.84 [place] [address] [address] Sep, [address] [address] Sep, Diabetes E11.9 ; Hypoxia R09.02 ; Hyperg lycemia R73.9 ; Therapeutic drug monitoring Z51.81 ; BMI 50.0-59.9, adult Z68.43 and Skin cancer C44.[address] [address] Sep, Chronic pain G89.[address] [address] Sep, Bipolar I disorder, most recent episode (or current) mixed, moderate F31.[address] [address] Sep, [address] [address] Sep, [place] [address] [address] Aug, Chronic pain G89.[address] [address] Aug, Bipolar I disorder, most recent episode (or current) mixed, moderate F31.[address] [address] Aug, Bipolar I disorder, most recent episode (or current) mixed, moderate F31.62 and Mild cognitive impairment G31.84 [place] [address] [address] Jul, [place] [id number] [place] [address] Jul, Chronic pain G89.29 [facility] [address] [address] Jul, Bipolar I disorder, most recent episode (or current) mixed, moderate F31.62 and Mild cognitive impairment G31.84 [facility] [address] [address] Jul, Bipolar I disorder, most recent episode (or current) mixed, moderate F31.62 and MCI (mild cognitive impairment) G31.84 [facility] [address] [address] Jul, [facility] [address] [address] Jul, [facility] [address] [address] Jul, Bipolar I disorder, most recent episode (or current) mixed, moderate F31.62 [facility] [address] [place] [id number] [place] [address] Jul, Chronic pain G89.29 [facility] [address] [address] Jun, Bipolar I disorder, most recent episode (or current) mixed, moderate F31.62 [facility] [address] [place] [id number] [place] [address] Jun, Pre-procedure lab exam Z01.812 [facility] [address] [place] [id number] [place] [address] Jun, [facility] [place] [address] [facility] [place] [id number] Jun, [facility] [address] [place] [id number] [place] [address] Jun, [facility] [address] [place] [id number] [place] [address] Jun, Forgetfulness R68.89 ; Pre-syncope R55 ; Localized edema R60.0 ; Other iron deficiency anemia D50.8 and BMI 50.0-59.9, adult Z68.43 [place] [address] [address] Jun, Chronic pain G89.29 [place] [address] [address] Jun, Chronic pain G89.29 [place] [address] [address] Jun, Bipolar I disorder, most recent episode (or current) mixed, moderate F31.62 [place] [address] [address] May, Chronic pain G89.29 [place] [address] [address] Apr, [place] [address] [address] Apr, Chronic pain G89.29 [place] [address] [address] Apr, Primary osteoarthritis of right knee M17 .11 [place] [address] [address] Mar, [place] [address] [address] Mar, BMI 50.0-59.9, adult Z68.43 and Bipolar disorder, in partial remission, most recent episode depressed F31.75 [place] [address] [address] Mar, Diabetes E11.9 ; Pure hypercholesterolem ia E78.00 ; Essential hypertension I10 ; Nausea with vomiting, unspecified R11.2 and Headache, unspecified headache type R51 [place] [address] [address] Mar, Bipolar I disorder, most recent episode (or current) mixed, moderate F31.62 [facility] [address] [address] Mar, Bipolar I disorder, most recent episode (or current) mixed, moderate F31.62 [facility] [address] [address] Mar, Chronic pain G89.29 [facility] [address] [address] Mar, Bipolar I disorder, most recent episode (or current) mixed, moderate F31.62 [facility] [address] [address] Feb, Bipolar I disorder, most recent episode (or current) mixed, moderate F31.62 [place] [address] [address] Feb, Chronic pain G89.29 [place] [address] [address] Feb, Decubitus ulcer of right foot, stage 3 L 89.893 and BMI 50.0-59.9, adult Z68.43 [place] [address] [address] Feb, Bipolar I disorder, most recent episode (or current) mixed, moderate F31.62 [place] [address] [address] Feb, [facility] [address] [address] January, [facility] [address] [address] January, Chronic pain G89.29 [facility] [address] [address] January, Bipolar I disorder, most recent episode (or current) mixed, moderate F31.62 [facility] [address] [address] January, Bipolar I disorder, most recent episode (or current) mixed, moderate F31.62 [place] [address] [address] Dec, Bipolar I disorder, most recent episode (or current) mixed, moderate F31.62 and BMI 50.0-59.9, adult Z68.43 [place] [address] [address] Dec, Bipolar I disorder, most recent episode (or current) mixed, moderate F31.62 [place] [address] [address] Dec, Chronic pain G89.29 [place] [address] [address] Dec, DM neuro manif type II E11.49 ; Right fl ank pain R10.9 ; detention 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 Z79.891 ; Encounter for medication monitoring Z51.81 and BMI 50.0-59.9, adult Z68.43 [place] [address] [address] Dec, Bipolar I disorder, most recent episode (or current) mixed, moderate F31.62 [place] [address] [address] Nov, Bipolar I disorder, most recent episode (or current) mixed, moderate F31.62 [place] [address] [address] Nov, Chronic pain G89.29 [place] [address] [address] Nov, Bipolar I disorder, most recent episode (or current) mixed, moderate F31.62 [place] [address] [address] Nov, Hypokalemia E87.6 [place] [address] [address] Nov, Bipolar I disorder, most recent episode (or current) mixed, moderate F31.62 [place] [address] [address] Oct, Chronic pain G89.29 [facility] [address] [address] Oct, BMI 50.0-59.9, adult Z68.43 and Bipolar I disorder, most recent episode (or current) mixed, moderate F31.62 [place] [address] [address] Oct, Bipolar I disorder, most recent episode (or current) mixed, moderate F31.62 [place] [address] [address] Oct, [place] [address] [address] Oct, Hypokalemia E87.6 [place] [address] [address] Oct, DM neuro manif type II E11.49 [place] [address] [address] Oct, Bipolar I disorder, most recent episode (or current) mixed, moderate F31.62 [place] [address] [address] Oct, Bipolar I disorder, most recent episode (or current) mixed, moderate F31.62 [place] [address] [address] 14 Oct, 2017 Hyperkalemia E87.5 ; Falling R29.6 ; BMI 50.0-59.9, adult Z68.43 and Acute left ankle pain M25.572 [place] [address] [address] Oct, DM neuro manif type II E11.49 [place] [address] [address] Oct, [place] [address] [address] Sep, Chronic pain G89.29 [place] [address] [address] Sep, [place] [address] [address] Sep, Bilateral primary osteoarthritis of knee M17.0 [place] [address] [address] Sep, Generalized edema R60.[address] [address] Sep, Bipolar I disorder, most recent episode (or current) mixed, moderate F31.[address] [address] Sep, Hypoxia R09.02 ; Other hypervolemia E87. 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 ; Anemia of chronic illness D63.8 and BMI 50.0-59.9, adult Z68.[address] [address] Sep, [address] [address] Sep, Bipolar I disorder, most recent episode (or current) mixed, moderate F31.62 [place] [address] [address] Aug, Chronic pain G89.29 [place] [address] [address] Aug, Generalized edema R60.1 [place] [address] [address] Aug, [address] [place] [address] Aug, [facility] [address] [place] [address] Aug, Bipolar I disorder, most recent episode (or current) mixed, moderate F31.62 [facility] [address] [address] Aug, Bipolar I disorder, most recent episode (or current) mixed, moderate F31.62 [place] [address] [address] Aug, Chronic pain G89.29 [place] [address] [place] [address] Jul, Bipolar I disorder, most recent episode (or current) mixed, moderate F31.62 [place] [address] [address] Jul, Bipolar I disorder, most recent episode (or current) mixed, moderate F31.62 and BMI 60.0-69.9, adult Z68.44 [place] [address] [address] Jul, Bipolar I disorder, most recent episode (or current) mixed, moderate F31.62 [place] [address] [address] Jul, Chronic pain G89.29 [place] [address] [address] Jul, Bipolar I disorder, most recent episode (or current) mixed, moderate F31.62 [place] [address] [address] Jun, Polyneuropathy associated with underlyin g disease G63 and Diabetes E11.9 [place] [address] [address] 16 Jun, 2017 Bipolar I disorder, most recent episode (or current) mixed, moderate F31.62 [place] [address] [address] Jun, Chronic pain G89.29 [facility] [address] [place] [address] 27 May, 2017 Bipolar I disorder, most recent episode (or current) mixed, moderate F31.62 [facility] [address] [address] May, Bipolar I disorder, most recent episode (or current) mixed, moderate F31.62 [facility] [address] [address] 20 May, 2017 Diabetic polyneuropathy associated with type 2 diabetes mellitus E11.42 [place] [address] [address] 18 May, 2017 Bipolar I disorder, most recent episode (or current) mixed, moderate F31.62 [place] [address] [address] 13 May, 2017 Bipolar I disorder, most recent episode (or current) mixed, moderate F31.62 [place] [address] [address] May, Chronic pain G89.29 [facility] [address] [place] [address] Apr, Bipolar I disorder, most recent episode (or current) mixed, moderate F31.62 [place] [address] [address] Apr, [place] [address] [address] Apr, Chronic pain G89.29 and DM neuro manif t ype II E11.49 [place] [address] [address] Apr, [facility] [address] [address] Apr, Bipolar I disorder, most recent episode (or current) mixed, moderate F31.62 [facility] [address] [address] Apr, Chronic pain G89.29 [facility] [address] [address] Apr, Iliotibial band syndrome, left M76.32 [facility] [address] [address] Apr, Bipolar I disorder, most recent episode (or current) mixed, moderate F31.62 [place] [address] [address] Mar, Bipolar I disorder, most recent episode (or current) mixed, moderate F31.62 [place] [address] [address] Mar, Bipolar I disorder, most recent episode (or current) mixed, moderate F31.62 [place] [address] [address] Mar, [place] [address] [address] Mar, Bipolar I disorder, most recent episode (or current) mixed, moderate F31.62 [place] [address] [address] Mar, Chronic pain G89.29 [place] [address] [address] Mar, Bipolar I disorder, most recent episode (or current) mixed, moderate F31.62 [place] [address] [address] Mar, Bipolar I disorder, most recent episode (or current) mixed, moderate F31.62 [place] [address] [address] Mar, Acute pain of left knee M25.562 ; Left h ip pain M25.552 ; Generalized edema R60.1 and Tongue swelling R22.0 [place] [address] [address] Mar, [facility] [address] [address] Feb, Chronic pain G89.29 [facility] [address] [address] Feb, Diabetes E11.9 [facility] [address] [address] January, Chronic pain G89.29 [facility] [address] [address] January, [place] [address] [address] January, Bipolar I disorder, most recent episode (or current) mixed, moderate F31.62 [place] [address] [address] Dec, Bipolar I disorder, most recent episode (or current) mixed, moderate F31.62 [place] [address] [address] Dec, Chronic pain G89.29 [facility] [address] [address] Dec, Bipolar I disorder, most recent episode (or current) mixed, moderate F31.62 [place] [address] [address] Dec, Diabetes E11.9 ; Essential hypertension I10 ; Chronic pain G89.29 and Morbid obesity E66.01 [facility] [address] [address] Dec, [place] [address] [address] Dec, Bipolar I disorder, most recent episode (or current) mixed, moderate F31.62 [place] [address] [address] Dec, Bipolar I disorder, most recent episode (or current) mixed, moderate F31.62 [facility] [address] [address] Nov, Chronic pain G89.29 [facility] [address] [address] Nov, Bipolar I disorder, most recent episode (or current) mixed, moderate F31.62 [facility] [address] [address] Nov, [facility] [address] [address] Nov, Bipolar I disorder, most recent episode (or current) mixed, moderate F31.62 [facility] [address] [address] Nov, Bipolar I disorder, most recent episode (or current) mixed, moderate F31.62 [facility] [address] [address] Nov, [facility] [address] [address] Nov, [facility] [address] [address] Nov, [facility] [address] [address] Oct, Chronic pain G89.29 [facility] [address] [address] Oct, Bipolar I disorder, most recent episode (or current) mixed, moderate F31.62 [facility] [address] [address] Oct, [facility] [address] [address] Oct, Chronic pain G89.29 ; Diabetes E11.9 ; A nxiety F41.9 and 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 [facility] [address] [address] Oct, [facility] [address] [address] Oct, Diabetes E11.9 [facility] [address] [address] Oct, Bipolar I disorder, most recent episode (or current) mixed, moderate F31.62 [facility] [address] [address] Sep, Chronic pain G89.29 [facility] [address] [address] Sep, Chronic pain G89.29 [facility] [address] [address] Aug, Chronic pain G89.29 [facility] [address] [address] Jul, [facility] [address] [address] Jul, Diabetes E11.9 [facility] [address] [address] Jul, Chronic pain G89.29 [facility] [address] [address] Jul, Bipolar I disorder, most recent episode (or current) mixed, moderate F31.62 [facility] [address] [address] Jun, Bipolar I disorder, most recent episode (or current) mixed, moderate F31.62 [facility] [address] [address] Jun, [facility] [address] [address] Jun, Bipolar I disorder, most recent episode (or current) mixed, moderate F31.62 [place] [address] [address] 30 May, 2016 Insomnia, unspecified type G47.00 [place] [address] [address] May, Bipolar I disorder, most recent episode (or current) mixed, moderate F31.62 [place] [address] [address] 14 May, 2016 [place] [address] [address] May, Bipolar I disorder, most recent episode (or current) mixed, moderate F31.62 [place] [address] [address] May, Diabetes E11.9 and Essential hypertensio n I10 [place] [address] [address] Apr, Chronic pain G89.29 [place] [address] [address] Apr, Bipolar I disorder, most recent episode (or current) mixed, moderate F31.62 [place] [address] [address] Apr, [place] [address] [address] Apr, [place] [address] [address] Mar, Chronic pain G89.29 ; Headache, unspecif ied headache type R51 ; Neuropathy G62.9 ; Pain of right hip joint M25.551 and Essential hypertension I10 [place] [address] [address] Mar, Chronic pain G89.29 [place] [address] [address] Mar, Bipolar I disorder, most recent episode (or current) mixed, moderate F31.62 [place] [address] [address] Feb, Bipolar I disorder, most recent episode (or current) mixed, moderate F31.62 and Insomnia, unspecified type G47.00 [place] [address] [address] Feb, Chronic pain G89.29 [place] [address] [place] [address] Feb, Bipolar I disorder, most recent episode (or current) mixed, moderate F31.62 [place] [address] [place] [address] January, Bipolar I disorder, most recent episode (or current) mixed, moderate F31.62 [place] [address] [address] January, Chronic pain G89.29 [place] [address] [address] January, Chronic pain G89.29 and Essential hypert ension I10 [place] [address] [address] January, Bipolar I disorder, most recent episode (or current) mixed, moderate F31.62 [place] [address] [address] Dec, [place] [address] [address] Dec, [place] [address] [address] Dec, [address] [address] Dec, [place] [address] [address] Nov, Reactive airway disease J45.909 [place] [address] Nov, [place] [address] [address] Nov, [place] [address] [address] Nov, [place] [address] [address] Nov, [place] [address] [address] Nov, Onychomycosis B35.1 ; Hammertoe M20.40 ; Girdler or callus L84 and DM neuro manif type II E11.[address] [address] Nov, Chronic pain G89.29 ; Leukocytosis D72.8 29 and Diabetes E11.[address] [address] Nov, [place] [address] [address] Oct, Bronchitis J40 [place] [address] [address] Oct, [place] [address] [address] Oct, [place] [address] [address] Oct, Mastoiditis, unspecified laterality H70. 90 and Type 2 diabetes mellitus with complication E11.8 [place] [address] [address] Sep, [address] [address] Sep, Dysuria R30.0 ; Cough R05 ; Benign prost atic hyperplasia with lower urinary tract symptoms, unspecified morphology N40.1 ; Hypokalemia E87.6 and Eustachian tube dysfunction, unspecified laterality H69.80 [place] [address] [place] [id number] [place] [address] Sep, Moderate mixed bipolar I disorder F31.62 [facility] [address] [address] Sep, Hypokalemia E87.6 [facility] [address] [address] Sep, [facility] [address] [address] Sep, Upper respiratory tract infection, unspe cified type J06.9 [facility] [address] [address] Aug, [facility] [address] [address] Aug, Dysuria R30.0 [facility] [address] [address] Aug, [facility] [address] [address] Jul, [facility] [address] [address] Jul, [facility] [address] [address] Jul, [facility] [address] [address] Jul, [facility] [address] [address] Jun, [facility] [address] [address] Jun, [facility] [address] [address] Jun, [facility] [address] [address] May, [facility] [address] [address] May, Bipolar I disorder, most recent episode (or current) mixed, moderate 296.62 [facility] [address] [address] May, [facility] [address] [address] May, Bipolar I disorder, most recent episode (or current) mixed, moderate 296.62 and Major depressive disorder, recurrent episode, severe, specified as with psychotic behavior 296.34 [facility] [address] [address] May, Bipolar I disorder, most recent episode (or current) mixed, moderate 296.62 [facility] [address] [address] May, [facility] [address] [address] Apr, [facility] [address] [address] Apr, [facility] [address] [address] Apr, Unspecified disorder of kidney and urete r 593.9 and Diabetes mellitus type 2, uncontrolled 250.02 [facility] [address] [address] Apr, [facility] [address] [address] Apr, [facility] [address] [address] Apr, [facility] [address] [address] Apr, [facility] [address] [address] Apr, Diabetes mellitus type II, uncontrolled 250.02 [facility] [address] [address] Apr, [facility] [address] [address] Mar, [facility] [address] [address] Mar, [facility] [address] [address] Mar, [facility] [address] [address] Mar, Major depressive disorder, recurrent epi sode, severe, specified as with psychotic behavior 296.34 and Bipolar I disorder, most recent episode (or current) mixed, moderate 296.62 [facility] [address] [address] Mar, Diabetes 250.00 ; Anuria 788.5 ; Nausea and vomiting 787.01 and Diarrhea 787.91 [facility] [address] [address] Mar, Diabetes 250.00 [facility] [address] [address] Mar, [facility] [address] [address] Mar, Diabetes 250.00 [facility] [address] [address] Mar, [facility] [address] [address] Mar, [facility] [address] [address] Mar, [facility] [address] [address] Mar, [facility] [address] [address] Mar, Bipolar I disorder, most recent episode (or current) mixed, moderate 296.62 and Major depressive disorder, recurrent episode, severe, specified as with psychotic behavior 296.34 [place] [address] [address] Mar, Magnesium deficiency 275.2 ; Hypokalemia 276.8 ; Nausea & vomiting 787.01 and Diabetes mellitus type 2, uncontrolled 250.02 [facility] [address] [address] Feb, [place] [address] [address] Feb, Bipolar I disorder, most recent episode (or current) mixed, moderate 296.62 [place] [address] [address] Feb, Nausea and vomiting 787.01 ; Left elbow pain 719.42 ; Anuria 788.5 and Diabetes 250.00 [place] [address] [address] Feb, [address] [address] Feb, Hypopotassemia 276.8 and Hypokalemia [address] [address] Feb, Hypopotassemia 276.8 and Hypokalemia 276 .8 [place] [address] [address] Feb, Seborrheic keratoses 702.[address] [address] Feb, Hypopotassemia 276.8 and Low magnesium l evels 275.[address] [address] January, [place] [address] [address] January, [place] [address] [address] January, [place] [id number] [place] [address] January, Scalp lesion 709.9 [facility] [address] [place] [id number] [place] [address] January, [facility] [address] [place] [id number] [place] [address] 30 Dec, 2014 Tear of medial cartilage or meniscus of knee, current 836.0 and 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 [facility] [address] [id number] [place] [address] Dec, [facility] [address] [place] [id number] [place] [address] Dec, [facility] [address] [address] Dec, Squamous cell carcinoma, 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 42 [facility] [address] [place] [id number] [place] [address] 14 Dec, 2014 [facility] [address] [id number] [place] [address] Dec, [facility] [address] [place] [id number] [place] [address] Nov, [facility] [address] [place] [id number] [place] [address] Nov, [facility] [address] [place] [id number] [place] [address] Nov, [facility] [address] [place] [id number] [place] [address] Nov, [facility] [address] [place] [id number] [place] [address] Nov, [facility] [address] [place] [id number] [place] [address] Nov, [facility] [address] [place] [address] [id number] [place] [address] Nov, [facility] [address] [place] [id number] [place] [address] Nov, [facility] [place] [facility] [address] [id number] [place] [address] Nov, [facility] [place] [facility] [address] [id number] [place] [address] Nov, [facility] [place] [facility] [address] [id number] [place] [address] Nov, [facility] [place] [facility] [address] [id number] [place] [address] Nov, [facility] [place] [facility] [address] [id number] [place] [address] Oct, 2014 [facility] [place] [facility] [address] [id number] [place] [address] Oct, 2014 [facility] [place] [facility] [address] [id number] [place] [address] Oct, 2014 [facility] [place] [facility] [address] [id number] [place] [address] Oct, 2014 [facility] [place] [facility] [address] [id number] [place] [address] Oct, 2014 [facility] [place] [facility] [address] [id number] [place] [address] Oct, 2014 [facility] [place] [facility] [address] [id number] [place] [address] Oct, [facility] [place] [facility] [address] [id number] [place] [address] Oct, 2014 [facility] [place] [facility] [address] [id number] [place] [address] Oct, [facility] [place] [facility] [address] [id number] [place] [address] Sep, [facility] [place] [facility] [address] [id number] [place] [address] Sep, [facility] [place] [facility] [address] [id number] [place] [address] Sep, [facility] [place] [facility] [address] [id number] [place] [address] Sep, [facility] [place] [facility] [address] [id number] [place] [address] Sep, [facility] [place] [facility] [address] [id number] [place] [address] Sep, [facility] [place] [facility] [address] [id number] [place] [address] Sep, [facility] [place] [facility] [address] [id number] [place] [address] Sep, [facility] [place] [facility] [address] [id number] [place] [address] Sep, [facility] [place] [facility] [address] [id number] [place] [address] Sep, [facility] [place] [facility] [address] [id number] [place] [address] Sep, [facility] [place] [facility] [address] [id number] [place] [address] Sep, [facility] [place] [facility] [address] [id number] [place] [address] Sep, [facility] [place] [facility] [address] [id number] [place] [address] Sep, [facility] [place] [facility] [address] [id number] [place] [address] Sep, [facility] [place] [facility] [address] [id number] [place] [address] Sep, [facility] [place] [facility] [address] [id number] [place] [address] Aug, [facility] [place] [facility] [address] [id number] [place] [address] Aug, [facility] [place] [facility] [address] [id number] [place] [address] Aug, [facility] [place] [facility] [address] [id number] [place] [address] Aug, [facility] [place] [facility] [address] [id number] [place] [address] Aug, [facility] [place] [facility] [address] [facility] [id number] [place] [address] Aug, [facility] [place] [facility] [address] [facility] [id number] [place] [address] Aug, [facility] [place] [facility] [address] [facility] [id number] [place] [address] Aug, [facility] [place] [facility] [address] [facility] [id number] [place] [address] Aug, [facility] [place] [facility] [address] [facility] [id number] [place] [address] Aug, [facility] [place] [facility] [address] [id number] [place] [address] Aug, [facility] [address] [place] [id number] Aug, [facility] [place] [facility] [address] [facility] [id number] [place] [address] Aug, [facility] [place] [facility] [address] [id number] [place] [address] Aug, [facility] [place] [facility] [address] [id number] [place] [address] Aug, [facility] [place] [facility] [address] [id number] [place] [address] Aug, [facility] [place] [facility] [address] [id number] [place] [address] Aug, [facility] [place] [facility] [address] [id number] [place] [address] Aug, [facility] [place] [facility] [address] [facility] [id number] [place] [address] Aug, [facility] [place] [facility] [address] [id number] [place] [address] Aug, [facility] [place] [facility] [address] [id number] [place] [address] 08 Aug, 2014 [facility] [place] [facility] [address] [id number] [place] [address] Aug, [facility] [place] [facility] [address] [id number] [place] [address] Aug, [facility] [place] [facility] [address] [id number] [place] [address] Aug, [facility] [place] [facility] [address] [id number] [place] [address] Aug, [facility] [place] [facility] [address] [id number] [place] [address] Aug, [facility] [place] [facility] [address] [id number] [place] [address] Aug, [facility] [place] [facility] [address] [id number] [place] [address] Aug, [facility] [place] [facility] [address] [id number] [place] [address] Aug, [facility] [place] [facility] [address] [id number] [place] [address] Aug, [facility] [place] [facility] [address] [id number] [place] [address] Jul, [facility] [place] [facility] [address] [id number] [place] [address] Jul, [facility] [place] [facility] [address] [id number] [place] [address] Jul, [facility] [place] [facility] [address] [id number] [place] [address] Jul, [facility] [place] [facility] [id number] [place] [address] Jul, [facility] [place] [facility] [address] [id number] [place] [address] Jul, [facility] [place] [facility] [address] [id number] [place] [address] Jul, [facility] [place] [facility] [address] [id number] [place] [address] Jul, [facility] [place] [facility] [address] [id number] [place] [address] Jul, [facility] [place] [facility] [address] [id number] [place] [address] Jul, [facility] [place] [facility] [address] [id number] [place] [address] Jun, [facility] [place] [facility] [address] [id number] [place] [address] Jun, [facility] [place] [facility] [address] [id number] [place] [address] Jun, [facility] [place] [facility] [address] [id number] [place] [address] Jun, [facility] [place] [facility] [address] [id number] [place] [address] Jun, [facility] [place] [facility] [address] [id number] [place] [address] Jun, [facility] [place] [facility] [address] [id number] [place] [address] Jun, [facility] [place] [facility] [address] [id number] [place] [address] Jun, [facility] [place] [facility] [address] [id number] [place] [address] Jun, [facility] [place] [facility] [address] [id number] [place] [address] Jun, [facility] [place] [facility] [address] [id number] [place] [address] 29 May, 2014 [facility] [place] [facility] [address] [id number] [place] [address] 29 May, 2014 [facility] [place] [facility] [address] [id number] [place] [address] May, [facility] [place] [facility] [address] [id number] [place] [address] May, [facility] [place] [facility] [address] [id number] [place] [address] 17 May, 2013 [facility] [place] [facility] [address] [id number] [place] [address] 17 May, 2013 [facility] [place] [facility] [address] [id number] [place] [address] 15 May, 2013 [facility] [place] [facility] [address] [id number] [place] [address] 15 May, 2013 [facility] [place] [facility] [address] [facility] [id number] [place] [address] 15 May, 2013 [facility] [facility] [address] [id number] [place] [address] 15 May, 2013 [facility] [address] [id number] [place] [address] 10 May, 2013 [facility] [place] [address] [id number] [place] [address] 10 May, 2013 [facility] [address] [id number] [place] [address] 09 May, 2013 [facility] [place] [facility] [address] [id number] [place] [address] 09 May, 2013 [facility] [facility] [address] [id number] [place] [address] 04 May, 2013 [facility] [facility] [address] [id number] [place] [address] May, 2013 [facility] [address] [id number] [place] [address] Apr, [facility] [address] [id number] [place] [address] Apr, [facility] [address] [id number] [place] [address] Apr, [facility] [place] [facility] [address] [id number] [place] [address] Apr, [facility] [place] [facility] [address] [id number] [place] [address] Apr, [facility] [place] [facility] [address] [id number] [place] [address] Apr, [facility] [place] [facility] [address] [facility] [id number] [place] [address] Apr, [facility] [place] [facility] [address] [facility] [id number] [place] [address] Apr, [facility] [place] [facility] [address] [facility] [id number] [place] [address] Apr, [facility] [place] [facility] [address] [facility] [id number] [place] [address] Apr, [facility] [place] [facility] [address] [facility] [id number] [place] [address] Apr, [facility] [place] [facility] [address] [id number] [place] [address] Apr, [facility] [place] [facility] [address] [id number] [place] [address] Apr, [facility] [place] [facility] [address] [facility] [id number] [place] [address] Apr, [facility] [place] [facility] [address] [id number] [place] [address] Apr, [facility] [place] [facility] [address] [id number] [place] [address] Mar, [facility] [place] [facility] [address] [id number] [place] [address] Mar, [facility] [place] [facility] [address] [facility] [id number] [place] [address] Mar, [facility] [place] [facility] [address] [id number] [place] [address] Mar, [facility] [place] [facility] [address] [facility] [id number] [place] [address] Mar, [facility] [address] [id number] [place] [address] Mar, [facility] [address] [facility] [id number] [place] [address] Mar, 2013 [facility] [facility] [address] [facility] [id number] [place] [address] Mar, 2013 [facility] [facility] [address] [id number] [place] [address] Mar, 2013 [facility] [facility] [address] [id number] [place] [address] Mar, 2013 [facility] [address] [facility] [id number] [place] [address] Mar, 2013 [facility] [address] [id number] [place] [address] Mar, 2013 [facility] [facility] [address] [id number] [place] [address] Mar, 2013 [facility] [facility] [address] [id number] [place] [address] Mar, 2013 [facility] [facility] [address] [id number] [place] [address] Mar, 2013 [facility] [facility] [address] [id number] [place] [address] Mar, 2013 [facility] [facility] [address] [id number] [place] [address] Mar, 2013 [facility] [address] [id number] [place] [address] Mar, 2013 [facility] [address] [id number] [place] [address] Feb, [facility] [address] [facility] [id number] [place] [address] Feb, [facility] [address] [id number] [place] [address] Feb, [facility] [address] [id number] [place] [address] Feb, [facility] [address] [id number] [place] [address] Feb, [facility] [address] [facility] [id number] [place] [address] Feb, [facility] [address] [facility] [id number] [place] [address] Feb, [facility] [address] [facility] [id number] [place] [address] Feb, [facility] [address] [id number] [place] [address] Feb, [facility] [address] [facility] [id number] [place] [address] Feb, [facility] [address] [id number] [place] [address] Feb, [facility] [address] [id number] [place] [address] Feb, [facility] [address] [id number] [place] [address] Feb, [facility] [address] [id number] [place] [address] Feb, [facility] [address] [id number] [place] [address] January, [facility] [address] [id number] [place] [address] January, [facility] [address] [id number] [place] [address] January, [facility] [address] [facility] [id number] [place] [address] January, [facility] [address] [id number] [place] [address] January, [facility] [address] [id number] [place] [address] January, [facility] [address] [id number] [place] [address] January, [facility] [address] [id number] [place] [address] January, [facility] [address] [id number] [place] [address] January, [facility] [address] [facility] [id number] [place] [address] January, [facility] [address] [id number] [place] [address] January, [facility] [address] [id number] [place] [address] January, [facility] [address] [facility] [id number] [place] [address] January, [facility] [facility] [address] [id number] [place] [address] January, [facility] [address] [id number] [place] [address] Dec, [facility] [address] [id number] [place] [address] Dec, [facility] [address] [id number] [place] [address] Dec, [facility] [address] [id number] [place] [address] Dec, [facility] [address] [id number] [place] [address] Dec, [facility] [facility] [address] [id number] [place] [address] Dec, [facility] [facility] [address] [facility] [id number] [place] [address] Dec, [facility] [address] [id number] [place] [address] Dec, [facility] [address] [id number] [place] [address] Dec, [facility] [address] [id number] [place] [address] Dec, [facility] [address] [facility] [id number] [place] [address] Nov, [facility] [address] [id number] [place] [address] Nov, [facility] [address] [id number] [place] [address] Nov, [facility] [address] [id number] [place] [address] Nov, [facility] [address] [id number] [place] [address] Nov, [facility] [address] [id number] [place] [address] Nov, [facility] [address] [id number] [place] [address] Nov, [facility] [address] [id number] [place] [address] Nov, [facility] [address] [id number] [place] [address] Nov, [facility] [address] [id number] [place] [address] Nov, [facility] [address] [id number] [place] [address] Oct, [facility] [address] [id number] [place] [address] Oct, [facility] [address] [id number] [place] [address] Oct, [facility] [address] [facility] [id number] [place] [address] Oct, [facility] [address] [id number] [place] [address] Oct, [facility] [address] [id number] [place] [address] Oct, [facility] [address] [id number] [place] [address] 14 Oct, 2013 [facility] [address] [id number] [place] [address] Oct, [facility] [address] [id number] [place] [address] Oct, [facility] [address] [id number] [place] [address] Oct, [facility] [address] [id number] [place] [address] Oct, [facility] [address] [id number] [place] [address] Oct, [facility] [address] [id number] [place] [address] Oct, [facility] [address] [id number] [place] [address] Oct, [facility] [address] [id number] [place] [address] Sep, [facility] [address] [id number] [place] [address] Sep, [facility] [address] [id number] [place] [address] Sep, [facility] [address] [id number] [place] [address] Sep, [facility] [address] [id number] [place] [address] Sep, [facility] [address] [id number] [place] [address] Sep, [facility] [address] [id number] [place] [address] Sep, [facility] [address] [id number] [place] [address] Sep, [facility] [address] [id number] [place] [address] Sep, [facility] [facility] [address] [id number] [place] [address] Sep, [facility] [facility] [address] [id number] [place] [address] Aug, [facility] [address] [id number] [place] [address] Aug, [facility] [facility] [address] [id number] [place] [address] Jul, [facility] [address] [id number] [place] [address] Jul, [facility] [address] [id number] [place] [address] Jul, [facility] [address] [id number] [place] [address] Jul, [facility] [address] [id number] [place] [address] Jul, [facility] [address] [id number] [place] [address] Jul, [facility] [address] [id number] [place] [address] Jul, [facility] [address] [id number] [place] [address] Jul, [facility] [address] [id number] [place] [address] Jul, [facility] [address] [id number] [place] [address] Jul, [facility] [address] [id number] [place] [address] Jul, [facility] [address] [id number] [place] [address] Jul, [facility] [address] [id number] [place] [address] Jul, [facility] [address] [id number] [place] [address] Jul, 2012 [facility] [address] [id number] [place] [address] Jul, 2012 [facility] [address] [id number] [place] [address] Jul, 2012 [facility] [facility] [address] [id number] [place] [address] Jul, 2012 [facility] [facility] [address] [id number] [place] [address] Jul, 2012 [facility] [address] [id number] [place] [address] Jul, 2012 [facility] [facility] [address] [id number] [place] [address] Jun, 2012 [facility] [facility] [address] [id number] [place] [address] Jun, 2012 [facility] [address] [id number] [place] [address] Jun, 2012 [facility] [facility] [address] [id number] [place] [address] Jun, 2012 [facility] [facility] [address] [id number] [place] [address] Jun, 2012 [facility] [facility] [address] [id number] [place] [address] Jun, 2012 [facility] [facility] [address] [id number] [place] [address] Jun, 2012 [facility] [facility] [address] [id number] [place] [address] Jun, 2012 [facility] [place] [facility] [address] [id number] [place] [address] Jun, 2012 [facility] [facility] [address] [id number] [place] [address] Jun, 2012 [facility] [place] [facility] [address] [id number] [place] [address] Jun, 2012 [facility] [place] [facility] [address] [id number] [place] [address] 26 May, 2012 [facility] [place] [facility] [address] [id number] [place] [address] 25 May, 2012 [facility] [place] [facility] [address] [id number] [place] [address] 19 May, 2012 [facility] [place] [facility] [address] [id number] [place] [address] 17 May, 2012 [facility] [place] [facility] [address] [id number] [place] [address] 11 May, 2012 [facility] [place] [facility] [address] [id number] [place] [address] 10 May, 2012 [facility] [place] [facility] [address] [id number] [place] [address] May, [facility] [place] [facility] [address] [id number] [place] [address] 05 May, 2013 [facility] [place] [facility] [address] [id number] [place] [address] Apr, [facility] [place] [facility] [address] [id number] [place] [address] Apr, [facility] [place] [facility] [address] [id number] [place] [address] Apr, [facility] [place] [facility] [address] [id number] [place] [address] Apr, [facility] [place] [facility] [address] [id number] [place] [address] Apr, [facility] [place] [facility] [address] [id number] [place] [address] Mar, [facility] [place] [facility] [address] [id number] [place] [address] Mar, [facility] [place] [facility] [address] [id number] [place] [address] Mar, [facility] [place] [facility] [address] [id number] [place] [address] Mar, [facility] [place] [facility] [address] [id number] [place] [address] Mar, [facility] [place] [facility] [address] [id number] [place] [address] Mar, [facility] [place] [facility] [address] [id number] [place] [address] Mar, [facility] [place] [facility] [address] [id number] [place] [address] Mar, [facility] [place] [facility] [address] [id number] [place] [address] Feb, [facility] [place] [facility] [address] [id number] [place] [address] Feb, [facility] [place] [facility] [address] [id number] [place] [address] January, [facility] [place] [facility] [address] [id number] [place] [address] January, [facility] [place] [facility] [address] [id number] [place] [address] Dec, [facility] [place] [facility] [address] [id number] [place] [address] Dec, [facility] [place] [facility] [address] [id number] [place] [address] Nov, [facility] [place] [facility] [address] [id number] [place] [address] Nov, [facility] [place] [facility] [address] [id number] [place] [address] Nov, [facility] [place] [facility] [address] [id number] [place] [address] Nov, [facility] [place] [facility] [address] [id number] [place] [address] Oct, [facility] [facility] [address] [id number] [place] [address] Oct, [facility] [facility] [address] [id number] [place] [address] Oct, [facility] [address] [id number] [place] [address] Oct, [facility] [address] [id number] [place] [address] 16 Oct, 2012 [facility] [address] [id number] [place] [address] 14 Oct, 2012 [facility] [place] [facility] [address] [id number] [place] [address] 08 Oct, 2012 [facility] [facility] [address] [id number] [place] [address] Oct, [facility] [facility] [address] [id number] [place] [address] Oct, [facility] [facility] [address] [id number] [place] [address] Sep, [facility] [place] [facility] [address] [id number] [place] [address] Sep, [facility] [place] [facility] [address] [id number] [place] [address] Sep, [facility] [place] [facility] [address] [id number] [place] [address] Sep, [facility] [place] [facility] [address] [id number] [place] [address] Sep, [facility] [place] [facility] [address] [id number] [place] [address] Sep, [facility] [place] [facility] [address] [id number] [place] [address] Sep, [facility] [id number] [place] [address] Sep, [facility] [address] [id number] [place] [address] Aug, [facility] [address] [id number] [place] [address] Aug, [facility] [address] [id number] [place] [address] Aug, [facility] [address] [id number] [place] [address] Aug, [facility] [address] [id number] [place] [address] Aug, [facility] [address] [id number] [place] [address] Aug, [facility] [address] [id number] [place] [address] Aug, [facility] [address] [id number] [place] [address] Aug, [facility] [address] [id number] [place] [address] Jul, [facility] [address] [id number] [place] [address] Jul, [facility] [address] [id number] [place] [address] Jul, [facility] [address] [id number] [place] [address] Jul, [facility] [address] [id number] [place] [address] Jul, [facility] [address] [id number] [place] [address] Jul, [facility] [address] [id number] [place] [address] Jun, [facility] [address] [id number] [place] [address] Jun, [facility] [id number] [place] [address] Jun, [facility] [address] [id number] [place] [address] Jun, [facility] [address] [id number] [place] [address] Jun, [facility] [address] [facility] [id number] [place] [address] Jun, [facility] [address] [facility] [id number] [place] [address] Jun, [facility] [address] [id number] [place] [address] Jun, [facility] [address] [id number] [place] [address] Jun, [facility] [address] [facility] [id number] [place] [address] May, [facility] [address] [id number] [place] [address] 24 May, 2012 [facility] [address] [id number] [place] [address] May, [facility] [address] [id number] [place] [address] Apr, [facility] [address] [id number] [place] [address] Apr, [facility] [address] [id number] [place] [address] Apr, [facility] [address] [id number] [place] [address] Apr, [facility] [address] [id number] [place] [address] Apr, [facility] [address] [id number] [place] [address] Apr, [facility] [address] [id number] [place] [address] Mar, [facility] [address] [id number] [place] [address] Mar, [facility] [address] [id number] [place] [address] Mar, [facility] [address] [id number] [place] [address] Mar, [facility] [address] [id number] [place] [address] Feb, [facility] [address] [id number] [place] [address] Feb, [facility] [address] [id number] [place] [address] Feb, [facility] [address] [id number] [place] [address] Feb, [facility] [address] [id number] [place] [address] Feb, [facility] [address] [id number] [place] [address] January, [facility] [address] [id number] [place] [address] January, [facility] [address] [id number] [place] [address] January, [facility] [address] [id number] [place] [address] January, [facility] [address] [id number] [place] [address] January, [facility] [place] [facility] [address] [id number] [place] [address] January, [facility] [place] [facility] [address] [id number] [place] [address] Dec, [facility] [place] [facility] [address] [id number] [place] [address] Dec, [facility] [place] [facility] [address] [id number] [place] [address] Dec, [facility] [place] [facility] [address] [id number] [place] [address] Dec, [facility] [place] [facility] [address] [id number] [place] [address] Dec, [facility] [place] [facility] [address] [id number] [place] [address] 27 Nov, 2011 [facility] [place] [facility] [address] [id number] [place] [address] 14 Nov, 2011 [facility] [place] [facility] [address] [id number] [place] [address] 12 Nov, 2011 [facility] [place] [facility] [address] [id number] [place] [address] 07 Nov, 2011 [facility] [place] [facility] [address] [id number] [place] [address] 29 Oct, 2011 [facility] [place] [facility] [address] [id number] [place] [address] 28 Oct, 2011 [facility] [place] [facility] [address] [id number] [place] [address] 24 Oct, 2011 [facility] [place] [facility] [id number] [place] [address] 13 Oct, 2011 [facility] [place] [facility] [address] [id number] [place] [address] 08 Oct, 2011 [facility] [place] [facility] [address] [id number] [place] [address] Sep, [facility] [place] [facility] [address] [id number] [place] [address] 30 Sep, 2011 [facility] [place] [facility] [address] [id number] [place] [address] Sep, [facility] [place] [facility] [address] [id number] [place] [address] Sep, [facility] [place] [facility] [address] [id number] [place] [address] Sep, [facility] [place] [facility] [address] [id number] [place] [address] 05 Sep, 2011 [facility] [place] [facility] [address] [id number] [place] [address] Aug, [facility] [place] [facility] [address] [id number] [place] [address] Aug, [facility] [place] [facility] [address] [facility] [id number] [place] [address] Aug, [facility] [place] [facility] [address] [facility] [id number] [place] [address] Jul, [facility] [place] [facility] [address] [id number] [place] [address] Jul, [facility] [place] [facility] [address] [id number] [place] [address] Jul, [facility] [place] [facility] [address] [facility] [id number] [place] [address] Jul, [facility] [place] [facility] [address] [id number] [place] [address] Jun, [facility] [place] [facility] [address] [id number] [place] [address] Jun, [facility] [place] [facility] [address] [id number] [place] [address] Jun, [facility] [place] [facility] [address] [id number] [place] [address] Jun, [facility] [place] [facility] [address] [id number] [place] [address] Jun, [facility] [place] [facility] [address] [id number] [place] [address] Jun, [facility] [place] [facility] [address] [id number] [place] [address] Mar, [facility] [place] [facility] [address] [facility] [id number] [place] [address] Dec, [facility] [place] [facility] [address] [id number] [place] [address] Dec, [facility] [place] [facility] [address] [id number] [place] [address] Nov, [facility] [place] [facility] [address] [id number] [place] [address] 16 Nov, 2010 [facility] [place] [facility] [address] [id number] [place] [address] 10 Sep, 2010 [facility] [place] [facility] [address] [id number] [place] [address] 31 Aug, 2010 [facility] [place] [facility] [address] [id number] [place] [address] 29 Aug, 2010 [facility] [place] [facility] [address] [id number] [place] [address] 29 Aug, 2010 [facility] [place] [facility] [address] [id number] [place] [address] 29 Aug, 2010 [facility] [place] [facility] [address] [id number] [place] [address] 27 Aug, 2010 [facility] [place] [facility] [address] [id number] [place] [address] 14 Aug, 2010 [facility] [place] [facility] [address] [id number] [place] [address] 08 Aug, 2010 [facility] [place] [facility] [address] [id number] [place] [address] 08 Aug, 2010 [facility] [place] [facility] [address] [id number] [place] [address] 07 Aug, 2010 [facility] [place] [facility] [address] [id number] [place] [address] 06 Aug, 2010 [facility] [place] [facility] [address] [id number] [place] [address] 06 Aug, 2010 [facility] [place] [facility] [address] [id number] [place] [address] Aug, [facility] [place] [facility] [address] [id number] [place] [address] 30 Jul, 2010 [facility] [place] [facility] [address] [id number] [place] [address] 30 Jul, 2010 [facility] [place] [facility] [address] [id number] [place] [address] 30 Jul, 2010 [facility] [place] [facility] [address] [id number] [place] [address] Jul, [facility] [place] [facility] [address] [id number] [place] [address] Jul, [facility] [place] [facility] [address] [id number] [place] [address] Jul, [facility] [place] [facility] [address] [id number] [place] [address] 24 Jun, 2010 [facility] [place] [facility] [address] [id number] [place] [address] Jun, [facility] [place] [facility] [address] [id number] [place] [address] Jun, [facility] [place] [facility] [address] [id number] [place] [address] Jun, [facility] [place] [facility] [address] [id number] [place] [address] Apr, [facility] [place] [facility] [address] [id number] [place] [address] Mar, [facility] [place] [facility] [address] [id number] [place] [address] Feb, [facility] [place] [facility] [address] [id number] [place] [address] January, [facility] [place] [facility] [address] [id number] [place] [address] 15 Dec, 2009 [facility] [place] [facility] [address] [id number] [place] [address] Nov, [facility] [place] [facility] [address] [id number] [place] [address] Aug, [facility] [place] [facility] [address] [id number] [place] [address] Aug, [facility] [place] [facility] [address] [id number] [place] [address] 07 Aug, 2009 [facility] [place] [facility] [address] [id number] [place] [address] Jul, [facility] [place] [facility] [address] [id number] [place] [address] Jul, [facility] [address] [id number] [place] [address] Jul, [facility] [address] [id number] [place] [address] Jun, [facility] [address] [id number] [place] [address] Jun, [facility] [id number] [place] [address] Jun, [facility] [address] [id number] [place] [address] Jun, [facility] [address] [id number] [place] [address] Jun, [facility] [address] [id number] [place] [address] Jun, [facility] [id number] [place] [address] Apr, [facility] [address] [id number] [place] [address] Apr, [facility] [address] [id number] [place] [address] Feb, [facility] [address] [id number] [place] [address] January, [facility] [address] [id number] [place] [address] Dec, IMMUNIZATIONS No Known Immunizations SOCIAL HISTORY [...] obesity Medical History skin cancer-basal cell R hindu (removed ) Medical History Arthritis Medical History [...] (Left) 2000 Surgical History EGD ([facility]) 2009 Surgical History colonoscopy 2009 ([facility]), 2013 ([facility] ) Surgical History heart cath: CAD w/ [...] History inability to urinate 09/16/15 Hospitalization History [facility] inpatient mental health ea rly 1999's Hospitalization History hyperkalemia 10/2017 Hospitalization History fluid in lung
--- OUTSIDE RECORDS SUMMARY | 2020-03-01 16:54 | XMS REPORT ---
Author Author Michele WASHBURN Organization [facility] Address [address] [place] [address] Care Team Providers Care Account General Manager Name Role Phone NOEMI WASHBURN Unavailable PROBLEMS Type Condition ICD9-CM Code [id number] Code Onset Dates Condition S tatus SNOMED Code Problem DM neuro manif type II E11.49 Active 84307333 Problem Chronic pain G89.29 Active 8422694 1 Problem Diabetes E11.9 Active 13007006 Problem Reactive airway disease J45.909 Active 839816475575 Problem Leukocytosis D72.829 Active 6879823 06 Problem Insomnia, unspecified type G47.00 Act sharon 498029242 Problem Bipolar I disorder, most recent episode (or curr ent) mixed, moderate F31.62 Active 12318625 Problem Primary osteoarthritis of right knee M17.11 Active 541632859255882 Problem Cough R05 Active 46329920 Problem Pure hypercholesterolemia E78.00 Acti ve 732405563 Problem Dysuria R30.0 Active 04428529 Problem Benign prostatic hyperplasia with lower urinary tract symptoms, unspecified morphology N40.1 Active 18069 6007 Problem Eustachian tube dysfunction, unspecified laterality H69.80 Active 03727303 Problem Polyneuropathy associated with underlying disease G63 Active 775544276 Problem Diabetic polyneuropathy associated with type 2 d iabetes mellitus E11.42 Active 13753808 Problem Anemia of chronic illness D63.8 Acti ve 306802810 Problem Chronic lymphocytic leukemia C91.10 A ctive 28456086 Problem Bilateral primary osteoarthritis of knee M17.0 Active 331813050 Problem 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 Active 861763324 Problem Eye exam abnormal R93.8 Active 16 6024052 Problem Retinal edema H35.81 Active 800407 6 Problem Lymphocytosis D72.820 Active 847784 09 Problem Bipolar disorder, in partial remission, most rec ent episode depressed F31.75 Active 82918413 Problem Hypokalemia E87.6 Active 11848871 Problem Falling R29.6 Active 463525564 Problem Pressure ulcer of other site, stage 3 L89.893 Active 671401287 Problem Other iron deficiency anemia D50.8 A ctive 32777253 Problem Mild cognitive impairment G31.84 Acti ve 690399925 Problem Skin cancer C44.90 Active 19504497 7 Problem assisted (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 Z79.4 Active 530663557 Problem Morbid obesity E66.01 Active 07667 6002 Problem Mood disorder F39 Active 696659 05 Problem Anxiety F41.9 Active 81670938 Problem Essential hypertension I10 Active 48887796 Problem Bipolar disorder F31.9 Active 137 63248 Problem Chronic diastolic (congestive) heart failure I50.3 2 Active 203271228 Problem Psychophysiological insomnia F51.04 A ctive 078235785 Problem Type 2 diabetes mellitus with diabetic neuropathy, uns pecified E11.40 Active 19634657 ALLERGIES No Information ENCOUNTERS Encounter Location Date Diagnosis [place] [address] [address] Oct, [place] [address] [address] Oct, [place] [address] [address] Sep, Mood disorder F39 [place] [address] [address] Sep, Bipolar disorder, in partial remission, most recent episode depressed F31.75 and Mild cognitive impairment G31.84 [place] [address] [address] Sep, Mood disorder F39 [place] [address] [address] Sep, [place] [address] [address] Sep, Mood disorder F39 [place] [address] [address] Sep, [place] [address] [place] [id number] [place] [address] Aug, Mood disorder F39 [facility] [address] [id number] [place] [address] Aug, [facility] [address] [id number] [place] [address] Aug, [facility] [address] [id number] [place] [address] Aug, [facility] [address] [id number] [place] [address] Aug, [facility] [address] [id number] [place] [address] Aug, [facility] [address] [place] [id number] [place] [address] Aug, [facility] [address] [id number] [place] [address] Aug, [facility] [address] [id number] [place] [address] Aug, Essential hypertension I10 [facility] [address] [place] [id number] [place] [address] Aug, Bipolar disorder, in partial remission, most recent episode depressed F31.75 and Mild cognitive impairment G31.84 [facility] [address] [place] [id number] [place] [address] Aug, Mood disorder F39 [facility] [address] [id number] [place] [address] Aug, [facility] [address] [id number] [place] [address] Aug, Bipolar disorder, in partial remission, most recent episode depressed F31.75 and Mild cognitive impairment G31.84 [facility] [address] [place] [id number] [place] [address] Jul, Bipolar disorder, in partial remission, most recent episode depressed F31.75 and Mild cognitive impairment G31.84 [facility] [address] [place] [id number] [place] [address] Jul, Psychophysiological insomnia F51.04 [facility] [address] [address] Jul, [facility] [address] [address] Jul, [facility] [address] [address] Jul, [facility] [address] [address] Jul, [facility] [address] [address] Jul, [facility] [address] [address] Jul, [facility] [address] [address] Jul, Bipolar disorder, in partial remission, most recent episode depressed F31.75 and Mild cognitive impairment G31.84 [facility] [address] [address] Jul, Chronic pain G89.29 ; Diabetes E11.9 ; E ssential hypertension I10 ; Ill feeling R68.89 ; Local infection of the skin and subcutaneous tissue, unspecified L08.9 and Other injury of unspecified body region, initial encounter T14.8XXA [facility] [address] [address] Jun, Bipolar disorder, in partial remission, most recent episode depressed F31.75 and Mild cognitive impairment G31.84 [facility] [address] [address] Jun, [facility] [address] [address] Jun, Bipolar disorder, in partial remission, most recent episode depressed F31.75 and Mild cognitive impairment G31.84 [facility] [address] [address] Jun, Psychophysiological insomnia F51.04 [facility] [address] [address] Jun, Psychophysiological insomnia F51.04 ; Ch ronic pain G89.29 ; Bipolar I disorder, most recent episode (or current) mixed, moderate F31.62 ; 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 ; Polyneuropathy associated with underlying disease G63 ; Type 2 diabetes mellitus with diabetic neuropathy, unspecified E11.40 ; assisted (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 Z79.4 and Hyperglycemia R73.9 [place] [address] [address] Jun, Bipolar disorder, in partial remission, most recent episode depressed F31.75 and Mild cognitive impairment G31.84 [place] [address] [address] Jun, [place] [address] [address] Jun, Bipolar disorder F31.9 [place] [address] [address] May, Bipolar disorder, in partial remission, most recent episode depressed F31.75 and Mild cognitive impairment G31.84 [place] [address] [address] May, [place] [address] [address] Apr, Chronic pain G89.29 and Bipolar disorder F31.9 [facility] [address] [address] Mar, Bipolar disorder F31.9 and Chronic pain G89.29 [facility] [address] [address] Feb, Bipolar disorder F31.9 [facility] [address] [address] Feb, Cellulitis of right upper extremity L03. 113 and Skin abrasion T14.8XXA [facility] [address] [address] Feb, Bipolar disorder, in partial remission, most recent episode depressed F31.75 and Mild cognitive impairment G31.84 [facility] [address] [address] Feb, Chronic pain G89.29 [facility] [address] [address] Feb, Bipolar disorder, in partial remission, most recent episode depressed F31.75 and Mild cognitive impairment G31.84 [place] [address] [address] January, Bipolar disorder, in partial remission, most recent episode depressed F31.75 and Mild cognitive impairment G31.84 [place] [address] [address] January, Chronic pain G89.29 and Bipolar disorder F31.9 [place] [address] [address] January, Bipolar disorder, in partial remission, most recent episode depressed F31.75 and Mild cognitive impairment G31.84 [place] [address] [address] Dec, [place] [address] [address] Dec, Chronic pain G89.29 and Bipolar disorder F31.9 [facility] [address] [address] Dec, Edema of both lower extremities R60.0 [place] [address] [address] Dec, Bipolar disorder F31.9 [facility] [address] [address] Dec, Bipolar disorder, in partial remission, most recent episode depressed F31.75 and Mild cognitive impairment G31.84 [place] [address] [address] Nov, [place] [address] [address] Nov, Chronic pain G89.29 [place] [address] [address] Nov, Bipolar disorder, in partial remission, most recent episode depressed F31.75 and Mild cognitive impairment G31.84 [place] [address] [address] Nov, Bipolar disorder F31.9 [place] [address] [address] 04 Nov, 2018 Encounter for Medicare annual [...] unspecified morphology N40.1 and Essential hypertension I10 [place] [address] [address] Oct, Chronic pain G89.29 [place] [address] [address] Oct, Diabetes E11.9 [place] [address] [address] Oct, Bipolar I disorder, most recent episode (or current) mixed, moderate F31.62 and Mild cognitive impairment G31.84 [place] [address] [address] Oct, Bipolar I disorder, most recent episode (or current) mixed, moderate F31.62 and Mild cognitive impairment G31.84 [place] [address] [address] Sep, Bipolar I disorder, most recent episode (or current) mixed, moderate F31.62 and Mild cognitive impairment G31.84 [place] [address] [address] Sep, [address] [address] Sep, Diabetes E11.9 ; Hypoxia R09.02 ; Hyperg lycemia R73.9 ; Therapeutic drug monitoring Z51.81 ; BMI 50.0-59.9, adult Z68.43 and Skin cancer C44.[address] [address] Sep, Chronic pain G89.[address] [address] Sep, Bipolar I disorder, most recent episode (or current) mixed, moderate F31.[address] [address] Sep, [address] [address] Sep, [place] [address] [address] Aug, Chronic pain G89.[address] [address] Aug, Bipolar I disorder, most recent episode (or current) mixed, moderate F31.[address] [address] Aug, Bipolar I disorder, most recent episode (or current) mixed, moderate F31.62 and Mild cognitive impairment G31.84 [place] [address] [address] Jul, [place] [id number] [place] [address] Jul, Chronic pain G89.29 [facility] [address] [address] Jul, Bipolar I disorder, most recent episode (or current) mixed, moderate F31.62 and Mild cognitive impairment G31.84 [facility] [address] [address] Jul, Bipolar I disorder, most recent episode (or current) mixed, moderate F31.62 and MCI (mild cognitive impairment) G31.84 [facility] [address] [address] Jul, [facility] [address] [address] Jul, [facility] [address] [address] Jul, Bipolar I disorder, most recent episode (or current) mixed, moderate F31.62 [facility] [address] [place] [id number] [place] [address] Jul, Chronic pain G89.29 [facility] [address] [address] Jun, Bipolar I disorder, most recent episode (or current) mixed, moderate F31.62 [facility] [address] [place] [id number] [place] [address] Jun, Pre-procedure lab exam Z01.812 [facility] [address] [place] [id number] [place] [address] Jun, [facility] [address] [facility] [place] [address] Jun, [facility] [address] [place] [id number] [place] [address] Jun, [facility] [address] [place] [id number] [place] [address] Jun, Forgetfulness R68.89 ; Pre-syncope R55 ; Localized edema R60.0 ; Other iron deficiency anemia D50.8 and BMI 50.0-59.9, adult Z68.43 [place] [address] [address] Jun, Chronic pain G89.29 [place] [address] [address] Jun, Chronic pain G89.29 [place] [address] [address] Jun, Bipolar I disorder, most recent episode (or current) mixed, moderate F31.62 [place] [address] [address] May, Chronic pain G89.29 [place] [address] [address] Apr, [place] [address] [address] Apr, Chronic pain G89.29 [place] [address] [address] Apr, Primary osteoarthritis of right knee M17 .11 [place] [address] [address] Mar, [place] [address] [address] Mar, BMI 50.0-59.9, adult Z68.43 and Bipolar disorder, in partial remission, most recent episode depressed F31.75 [place] [address] [address] Mar, Diabetes E11.9 ; Pure hypercholesterolem ia E78.00 ; Essential hypertension I10 ; Nausea with vomiting, unspecified R11.2 and Headache, unspecified headache type R51 [place] [address] [address] Mar, Bipolar I disorder, most recent episode (or current) mixed, moderate F31.62 [facility] [address] [address] Mar, Bipolar I disorder, most recent episode (or current) mixed, moderate F31.62 [facility] [address] [address] Mar, Chronic pain G89.29 [facility] [address] [address] Mar, Bipolar I disorder, most recent episode (or current) mixed, moderate F31.62 [facility] [address] [address] Feb, Bipolar I disorder, most recent episode (or current) mixed, moderate F31.62 [place] [address] [address] Feb, Chronic pain G89.29 [place] [address] [address] Feb, Decubitus ulcer of right foot, stage 3 L 89.893 and BMI 50.0-59.9, adult Z68.43 [place] [address] [address] Feb, Bipolar I disorder, most recent episode (or current) mixed, moderate F31.62 [place] [address] [address] Feb, [facility] [address] [address] January, [facility] [address] [address] January, Chronic pain G89.29 [facility] [address] [address] January, Bipolar I disorder, most recent episode (or current) mixed, moderate F31.62 [facility] [address] [address] January, Bipolar I disorder, most recent episode (or current) mixed, moderate F31.62 [place] [address] [address] Dec, Bipolar I disorder, most recent episode (or current) mixed, moderate F31.62 and BMI 50.0-59.9, adult Z68.43 [place] [address] [address] Dec, Bipolar I disorder, most recent episode (or current) mixed, moderate F31.62 [place] [address] [address] Dec, Chronic pain G89.29 [place] [address] [address] Dec, DM neuro manif type II E11.49 ; Right fl ank pain R10.9 ; assisted 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 Z79.891 ; Encounter for medication monitoring Z51.81 and BMI 50.0-59.9, adult Z68.43 [place] [address] [address] Dec, Bipolar I disorder, most recent episode (or current) mixed, moderate F31.62 [place] [address] [address] Nov, Bipolar I disorder, most recent episode (or current) mixed, moderate F31.62 [place] [address] [address] Nov, Chronic pain G89.29 [place] [address] [address] Nov, Bipolar I disorder, most recent episode (or current) mixed, moderate F31.62 [place] [address] [address] Nov, Hypokalemia E87.6 [place] [address] [address] Nov, Bipolar I disorder, most recent episode (or current) mixed, moderate F31.62 [place] [address] [address] Oct, Chronic pain G89.29 [facility] [address] [address] Oct, BMI 50.0-59.9, adult Z68.43 and Bipolar I disorder, most recent episode (or current) mixed, moderate F31.62 [place] [address] [address] Oct, Bipolar I disorder, most recent episode (or current) mixed, moderate F31.62 [place] [address] [address] Oct, [place] [address] [address] Oct, Hypokalemia E87.6 [place] [address] [address] Oct, DM neuro manif type II E11.49 [place] [address] [address] Oct, Bipolar I disorder, most recent episode (or current) mixed, moderate F31.62 [place] [address] [address] Oct, Bipolar I disorder, most recent episode (or current) mixed, moderate F31.62 [place] [address] [address] 14 Oct, 2017 Hyperkalemia E87.5 ; Falling R29.6 ; BMI 50.0-59.9, adult Z68.43 and Acute left ankle pain M25.572 [place] [address] [address] Oct, DM neuro manif type II E11.49 [place] [address] [address] Oct, [place] [address] [address] Sep, Chronic pain G89.29 [place] [address] [address] Sep, [place] [address] [address] Sep, Bilateral primary osteoarthritis of knee M17.0 [place] [address] [address] Sep, Generalized edema R60.[address] [address] Sep, Bipolar I disorder, most recent episode (or current) mixed, moderate F31.[address] [address] Sep, Hypoxia R09.02 ; Other hypervolemia E87. 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 ; Anemia of chronic illness D63.8 and BMI 50.0-59.9, adult Z68.[address] [address] Sep, [address] [address] Sep, Bipolar I disorder, most recent episode (or current) mixed, moderate F31.62 [place] [address] [address] Aug, Chronic pain G89.29 [place] [address] [address] Aug, Generalized edema R60.1 [place] [address] [address] Aug, [address] [place] [address] Aug, [facility] [address] [place] [address] Aug, Bipolar I disorder, most recent episode (or current) mixed, moderate F31.62 [facility] [address] [address] Aug, Bipolar I disorder, most recent episode (or current) mixed, moderate F31.62 [place] [address] [address] Aug, Chronic pain G89.29 [place] [address] [place] [address] Jul, Bipolar I disorder, most recent episode (or current) mixed, moderate F31.62 [place] [address] [address] Jul, Bipolar I disorder, most recent episode (or current) mixed, moderate F31.62 and BMI 60.0-69.9, adult Z68.44 [place] [address] [address] Jul, Bipolar I disorder, most recent episode (or current) mixed, moderate F31.62 [place] [address] [address] Jul, Chronic pain G89.29 [place] [address] [address] Jul, Bipolar I disorder, most recent episode (or current) mixed, moderate F31.62 [place] [address] [address] Jun, Polyneuropathy associated with underlyin g disease G63 and Diabetes E11.9 [place] [address] [address] 16 Jun, 2017 Bipolar I disorder, most recent episode (or current) mixed, moderate F31.62 [place] [address] [address] Jun, Chronic pain G89.29 [facility] [address] [place] [address] 27 May, 2017 Bipolar I disorder, most recent episode (or current) mixed, moderate F31.62 [facility] [address] [address] May, Bipolar I disorder, most recent episode (or current) mixed, moderate F31.62 [facility] [address] [address] 20 May, 2017 Diabetic polyneuropathy associated with type 2 diabetes mellitus E11.42 [place] [address] [address] 18 May, 2017 Bipolar I disorder, most recent episode (or current) mixed, moderate F31.62 [place] [address] [address] 13 May, 2017 Bipolar I disorder, most recent episode (or current) mixed, moderate F31.62 [place] [address] [address] May, Chronic pain G89.29 [facility] [address] [place] [address] Apr, Bipolar I disorder, most recent episode (or current) mixed, moderate F31.62 [place] [address] [address] Apr, [place] [address] [address] Apr, Chronic pain G89.29 and DM neuro manif t ype II E11.49 [place] [address] [address] Apr, [facility] [address] [address] Apr, Bipolar I disorder, most recent episode (or current) mixed, moderate F31.62 [facility] [address] [address] Apr, Chronic pain G89.29 [facility] [address] [address] Apr, Iliotibial band syndrome, left M76.32 [facility] [address] [address] Apr, Bipolar I disorder, most recent episode (or current) mixed, moderate F31.62 [place] [address] [address] Mar, Bipolar I disorder, most recent episode (or current) mixed, moderate F31.62 [place] [address] [address] Mar, Bipolar I disorder, most recent episode (or current) mixed, moderate F31.62 [place] [address] [address] Mar, [place] [address] [address] Mar, Bipolar I disorder, most recent episode (or current) mixed, moderate F31.62 [place] [address] [address] Mar, Chronic pain G89.29 [place] [address] [address] Mar, Bipolar I disorder, most recent episode (or current) mixed, moderate F31.62 [place] [address] [address] Mar, Bipolar I disorder, most recent episode (or current) mixed, moderate F31.62 [place] [address] [address] Mar, Acute pain of left knee M25.562 ; Left h ip pain M25.552 ; Generalized edema R60.1 and Tongue swelling R22.0 [place] [address] [address] Mar, [facility] [address] [address] Feb, Chronic pain G89.29 [facility] [address] [address] Feb, Diabetes E11.9 [facility] [address] [address] January, Chronic pain G89.29 [facility] [address] [address] [address] January, [place] [address] [address] January, Bipolar I disorder, most recent episode (or current) mixed, moderate F31.62 [place] [address] [address] Dec, Bipolar I disorder, most recent episode (or current) mixed, moderate F31.62 [place] [address] [address] Dec, Chronic pain G89.29 [facility] [address] [address] Dec, Bipolar I disorder, most recent episode (or current) mixed, moderate F31.62 [place] [address] [address] Dec, Diabetes E11.9 ; Essential hypertension I10 ; Chronic pain G89.29 and Morbid obesity E66.01 [facility] [address] [address] Dec, [place] [address] [address] Dec, Bipolar I disorder, most recent episode (or current) mixed, moderate F31.62 [place] [address] [address] Dec, Bipolar I disorder, most recent episode (or current) mixed, moderate F31.62 [facility] [address] [address] Nov, Chronic pain G89.29 [facility] [address] [address] Nov, Bipolar I disorder, most recent episode (or current) mixed, moderate F31.62 [facility] [address] [address] Nov, [facility] [address] [address] Nov, Bipolar I disorder, most recent episode (or current) mixed, moderate F31.62 [facility] [address] [address] Nov, Bipolar I disorder, most recent episode (or current) mixed, moderate F31.62 [facility] [address] [address] Nov, [facility] [address] [address] Nov, [facility] [address] [address] Nov, [facility] [address] [address] Oct, Chronic pain G89.29 [facility] [address] [address] Oct, Bipolar I disorder, most recent episode (or current) mixed, moderate F31.62 [facility] [address] [address] Oct, [facility] [address] [address] Oct, Chronic pain G89.29 ; Diabetes E11.9 ; A nxiety F41.9 and 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 [facility] [address] [address] Oct, [facility] [address] [address] Oct, Diabetes E11.9 [facility] [address] [address] Oct, Bipolar I disorder, most recent episode (or current) mixed, moderate F31.62 [facility] [address] [address] Sep, Chronic pain G89.29 [facility] [address] [address] Sep, Chronic pain G89.29 [facility] [address] [address] Aug, Chronic pain G89.29 [facility] [address] [address] Jul, [facility] [address] [address] Jul, Diabetes E11.9 [facility] [address] [address] Jul, Chronic pain G89.29 [facility] [address] [address] Jul, Bipolar I disorder, most recent episode (or current) mixed, moderate F31.62 [facility] [address] [address] Jun, Bipolar I disorder, most recent episode (or current) mixed, moderate F31.62 [facility] [address] [address] Jun, [facility] [address] [address] Jun, Bipolar I disorder, most recent episode (or current) mixed, moderate F31.62 [place] [address] [address] 30 May, 2016 Insomnia, unspecified type G47.00 [place] [address] [address] May, Bipolar I disorder, most recent episode (or current) mixed, moderate F31.62 [place] [address] [address] 14 May, 2016 [place] [address] [address] May, Bipolar I disorder, most recent episode (or current) mixed, moderate F31.62 [place] [address] [address] May, Diabetes E11.9 and Essential hypertensio n I10 [place] [address] [address] Apr, Chronic pain G89.29 [place] [address] [address] Apr, Bipolar I disorder, most recent episode (or current) mixed, moderate F31.62 [place] [address] [address] Apr, [place] [address] [address] Apr, [place] [address] [address] Mar, Chronic pain G89.29 ; Headache, unspecif ied headache type R51 ; Neuropathy G62.9 ; Pain of right hip joint M25.551 and Essential hypertension I10 [place] [address] [address] Mar, Chronic pain G89.29 [place] [address] [address] Mar, Bipolar I disorder, most recent episode (or current) mixed, moderate F31.62 [place] [address] [address] Feb, Bipolar I disorder, most recent episode (or current) mixed, moderate F31.62 and Insomnia, unspecified type G47.00 [place] [address] [address] Feb, Chronic pain G89.29 [place] [address] [place] [address] Feb, Bipolar I disorder, most recent episode (or current) mixed, moderate F31.62 [place] [address] [place] [address] January, Bipolar I disorder, most recent episode (or current) mixed, moderate F31.62 [place] [address] [address] January, Chronic pain G89.29 [place] [address] [address] January, Chronic pain G89.29 and Essential hypert ension I10 [place] [address] [address] January, Bipolar I disorder, most recent episode (or current) mixed, moderate F31.62 [place] [address] [address] Dec, [place] [address] [address] Dec, [place] [address] [address] Dec, [address] [address] Dec, [place] [address] [address] Nov, Reactive airway disease J45.909 [place] [address] Nov, [place] [address] [address] Nov, [place] [address] [address] Nov, [place] [address] [address] Nov, [place] [address] [address] Nov, Onychomycosis B35.1 ; Hammertoe M20.40 ; Melrose or callus L84 and DM neuro manif type II E11.[address] [address] Nov, Chronic pain G89.29 ; Leukocytosis D72.8 29 and Diabetes E11.[address] [address] Nov, [place] [address] [address] Oct, Bronchitis J40 [place] [address] [address] Oct, [place] [address] [address] Oct, [place] [address] [address] Oct, Mastoiditis, unspecified laterality H70. 90 and Type 2 diabetes mellitus with complication E11.8 [place] [address] [address] Sep, [address] [address] Sep, Dysuria R30.0 ; Cough R05 ; Benign prost atic hyperplasia with lower urinary tract symptoms, unspecified morphology N40.1 ; Hypokalemia E87.6 and Eustachian tube dysfunction, unspecified laterality H69.80 [place] [address] [place] [id number] [place] [address] Sep, Moderate mixed bipolar I disorder F31.62 [facility] [address] [address] Sep, Hypokalemia E87.6 [facility] [address] [address] Sep, [facility] [address] [address] Sep, Upper respiratory tract infection, unspe cified type J06.9 [facility] [address] [address] Aug, [facility] [address] [address] Aug, Dysuria R30.0 [facility] [address] [address] Aug, [facility] [address] [address] Jul, [facility] [address] [address] Jul, [facility] [address] [address] Jul, [facility] [address] [address] Jul, [facility] [address] [address] Jun, [facility] [address] [address] Jun, [facility] [address] [address] Jun, [facility] [address] [address] May, [facility] [address] [address] May, Bipolar I disorder, most recent episode (or current) mixed, moderate 296.62 [facility] [address] [address] May, [facility] [address] [address] May, Bipolar I disorder, most recent episode (or current) mixed, moderate 296.62 and Major depressive disorder, recurrent episode, severe, specified as with psychotic behavior 296.34 [facility] [address] [address] May, Bipolar I disorder, most recent episode (or current) mixed, moderate 296.62 [facility] [address] [address] May, [facility] [address] [address] Apr, [facility] [address] [address] Apr, [facility] [address] [address] Apr, Unspecified disorder of kidney and urete r 593.9 and Diabetes mellitus type 2, uncontrolled 250.02 [facility] [address] [address] Apr, [facility] [address] [address] Apr, [facility] [address] [address] Apr, [facility] [address] [address] Apr, [facility] [address] [address] Apr, Diabetes mellitus type II, uncontrolled 250.02 [facility] [address] [address] Apr, [facility] [address] [address] Mar, [facility] [address] [address] Mar, [facility] [address] [address] Mar, [facility] [address] [address] Mar, Major depressive disorder, recurrent epi sode, severe, specified as with psychotic behavior 296.34 and Bipolar I disorder, most recent episode (or current) mixed, moderate 296.62 [facility] [address] [address] Mar, Diabetes 250.00 ; Anuria 788.5 ; Nausea and vomiting 787.01 and Diarrhea 787.91 [facility] [address] [address] Mar, Diabetes 250.00 [facility] [address] [address] Mar, [facility] [address] [address] Mar, Diabetes 250.00 [facility] [address] [address] Mar, [facility] [address] [address] Mar, [facility] [address] [address] Mar, [facility] [address] [address] Mar, [facility] [address] [address] Mar, Bipolar I disorder, most recent episode (or current) mixed, moderate 296.62 and Major depressive disorder, recurrent episode, severe, specified as with psychotic behavior 296.34 [place] [address] [address] Mar, Magnesium deficiency 275.2 ; Hypokalemia 276.8 ; Nausea & vomiting 787.01 and Diabetes mellitus type 2, uncontrolled 250.02 [facility] [address] [address] Feb, [place] [address] [address] Feb, Bipolar I disorder, most recent episode (or current) mixed, moderate 296.62 [place] [address] [address] Feb, Nausea and vomiting 787.01 ; Left elbow pain 719.42 ; Anuria 788.5 and Diabetes 250.00 [place] [address] [address] Feb, [address] [address] Feb, Hypopotassemia 276.8 and Hypokalemia [address] [address] Feb, Hypopotassemia 276.8 and Hypokalemia 276 .8 [place] [address] [address] Feb, Seborrheic keratoses 702.[address] [address] Feb, Hypopotassemia 276.8 and Low magnesium l evels 275.[address] [address] January, [place] [address] [address] January, [place] [address] [address] January, [place] [id number] [place] [address] January, Scalp lesion 709.9 [facility] [address] [place] [id number] [place] [address] January, [facility] [address] [place] [id number] [place] [address] 30 Dec, 2014 Tear of medial cartilage or meniscus of knee, current 836.0 and 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 [facility] [address] [place] [id number] [place] [address] Dec, [facility] [address] [place] [id number] [place] [address] Dec, [facility] [address] [address] Dec, Squamous cell carcinoma, 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 42 [facility] [address] [place] [id number] [place] [address] 14 Dec, 2014 [facility] [address] [place] [id number] [place] [address] Dec, [facility] [address] [place] [id number] [place] [address] Nov, [facility] [address] [place] [id number] [place] [address] Nov, [facility] [address] [place] [id number] [place] [address] Nov, [facility] [address] [place] [id number] [place] [address] Nov, [facility] [address] [place] [id number] [place] [address] Nov, [facility] [address] [place] [id number] [place] [address] Nov, [facility] [address] [place] [id number] [place] [address] Nov, [facility] [address] [place] [id number] [place] [address] Nov, [facility] [address] [id number] [place] [address] Nov, [facility] [address] [id number] [place] [address] Nov, [facility] [address] [id number] [place] [address] Nov, [facility] [address] [id number] [place] [address] Nov, [facility] [address] [id number] [place] [address] Oct, 2014 [facility] [address] [id number] [place] [address] Oct, 2014 [facility] [address] [id number] [place] [address] Oct, 2014 [facility] [address] [id number] [place] [address] Oct, 2014 [facility] [address] [id number] [place] [address] Oct, 2014 [facility] [address] [id number] [place] [address] Oct, 2014 [facility] [address] [id number] [place] [address] Oct, [facility] [address] [id number] [place] [address] Oct, 2014 [facility] [address] [id number] [place] [address] Oct, [facility] [address] [id number] [place] [address] Sep, [facility] [address] [id number] [place] [address] Sep, [facility] [address] [id number] [place] [address] Sep, [facility] [address] [id number] [place] [address] Sep, [facility] [address] [id number] [place] [address] Sep, [facility] [address] [id number] [place] [address] Sep, [facility] [address] [id number] [place] [address] Sep, [facility] [address] [id number] [place] [address] Sep, [facility] [address] [id number] [place] [address] Sep, [facility] [address] [id number] [place] [address] Sep, [facility] [address] [id number] [place] [address] Sep, [facility] [address] [id number] [place] [address] Sep, [facility] [address] [id number] [place] [address] Sep, [facility] [address] [id number] [place] [address] Sep, [facility] [address] [id number] [place] [address] Sep, [facility] [address] [id number] [place] [address] Sep, [facility] [address] [id number] [place] [address] Aug, [facility] [address] [id number] [place] [address] Aug, [facility] [address] [id number] [place] [address] Aug, [facility] [address] [id number] [place] [address] Aug, [facility] [address] [id number] [place] [address] Aug, [facility] [address] [facility] [id number] [place] [address] Aug, [facility] [address] [facility] [id number] [place] [address] Aug, [facility] [address] [facility] [id number] [place] [address] Aug, [facility] [address] [facility] [id number] [place] [address] Aug, [facility] [address] [facility] [id number] [place] [address] Aug, [facility] [address] [id number] [place] [address] Aug, [facility] [address] [place] [id number] Aug, [facility] [address] [facility] [id number] [place] [address] Aug, [facility] [address] [id number] [place] [address] Aug, [facility] [address] [id number] [place] [address] Aug, [facility] [address] [id number] [place] [address] Aug, [facility] [address] [id number] [place] [address] Aug, [facility] [address] [id number] [place] [address] Aug, [facility] [address] [facility] [id number] [place] [address] Aug, [facility] [address] [id number] [place] [address] Aug, [facility] [address] [id number] [place] [address] 08 Aug, 2014 [facility] [address] [id number] [place] [address] Aug, [facility] [address] [id number] [place] [address] Aug, [facility] [address] [id number] [place] [address] Aug, [facility] [address] [id number] [place] [address] Aug, [facility] [address] [id number] [place] [address] Aug, [facility] [address] [id number] [place] [address] Aug, [facility] [address] [id number] [place] [address] Aug, [facility] [address] [id number] [place] [address] Aug, [facility] [address] [id number] [place] [address] Aug, [facility] [address] [id number] [place] [address] Jul, [facility] [address] [id number] [place] [address] Jul, [facility] [address] [id number] [place] [address] Jul, [facility] [address] [id number] [place] [address] Jul, [facility] [address] [place] [id number] [place] [address] Jul, [facility] [address] [id number] [place] [address] Jul, [facility] [address] [id number] [place] [address] Jul, [facility] [place] [facility] [address] [id number] [place] [address] Jul, [facility] [place] [facility] [address] [id number] [place] [address] Jul, [facility] [place] [facility] [address] [id number] [place] [address] Jul, [facility] [place] [facility] [address] [id number] [place] [address] Jun, [facility] [place] [facility] [address] [id number] [place] [address] Jun, [facility] [place] [facility] [address] [id number] [place] [address] Jun, [facility] [place] [facility] [address] [id number] [place] [address] Jun, [facility] [place] [facility] [address] [id number] [place] [address] Jun, [facility] [place] [facility] [address] [id number] [place] [address] Jun, [facility] [place] [facility] [address] [id number] [place] [address] Jun, [facility] [place] [facility] [address] [id number] [place] [address] Jun, [facility] [place] [facility] [address] [id number] [place] [address] Jun, [facility] [place] [facility] [address] [id number] [place] [address] Jun, [facility] [place] [facility] [address] [id number] [place] [address] 29 May, 2014 [facility] [place] [facility] [address] [id number] [place] [address] 29 May, 2014 [facility] [place] [facility] [address] [id number] [place] [address] May, [facility] [place] [facility] [address] [id number] [place] [address] May, [facility] [place] [facility] [address] [id number] [place] [address] 17 May, 2013 [facility] [place] [facility] [address] [id number] [place] [address] 17 May, 2013 [facility] [place] [facility] [address] [id number] [place] [address] 15 May, 2013 [facility] [place] [facility] [address] [id number] [place] [address] 15 May, 2013 [facility] [place] [facility] [address] [facility] [id number] [place] [address] 15 May, 2013 [facility] [place] [facility] [address] [id number] [place] [address] 15 May, 2013 [facility] [place] [facility] [address] [id number] [place] [address] 10 May, 2013 [facility] [place] [facility] [address] [id number] [place] [address] 10 May, 2013 [facility] [place] [facility] [address] [id number] [place] [address] 09 May, 2013 [facility] [place] [facility] [address] [id number] [place] [address] 09 May, 2013 [facility] [place] [facility] [address] [id number] [place] [address] 04 May, 2013 [facility] [place] [facility] [address] [id number] [place] [address] May, 2013 [facility] [place] [facility] [address] [id number] [place] [address] Apr, [facility] [place] [facility] [address] [id number] [place] [address] Apr, [facility] [place] [facility] [address] [id number] [place] [address] Apr, [facility] [place] [facility] [address] [id number] [place] [address] Apr, [facility] [place] [facility] [address] [id number] [place] [address] Apr, [facility] [place] [facility] [address] [id number] [place] [address] Apr, [facility] [place] [facility] [address] [facility] [id number] [place] [address] Apr, [facility] [place] [facility] [address] [address] [facility] [id number] [place] [address] Apr, [facility] [place] [facility] [address] [facility] [id number] [place] [address] Apr, [facility] [place] [facility] [address] [facility] [id number] [place] [address] Apr, [facility] [place] [facility] [address] [facility] [id number] [place] [address] Apr, [facility] [place] [facility] [address] [id number] [place] [address] Apr, [facility] [place] [facility] [address] [id number] [place] [address] Apr, [facility] [place] [facility] [address] [facility] [id number] [place] [address] Apr, [facility] [place] [facility] [address] [id number] [place] [address] Apr, [facility] [place] [facility] [address] [id number] [place] [address] Mar, [facility] [place] [facility] [address] [id number] [place] [address] Mar, [facility] [place] [facility] [address] [facility] [id number] [place] [address] Mar, [facility] [place] [facility] [address] [id number] [place] [address] Mar, [facility] [place] [facility] [address] [facility] [id number] [place] [address] Mar, [facility] [place] [facility] [address] [id number] [place] [address] Mar, [facility] [place] [facility] [address] [facility] [id number] [place] [address] Mar, 2013 [facility] [place] [facility] [address] [facility] [id number] [place] [address] Mar, 2013 [facility] [place] [facility] [address] [id number] [place] [address] Mar, 2013 [facility] [place] [facility] [address] [id number] [place] [address] Mar, 2013 [facility] [place] [facility] [address] [facility] [id number] [place] [address] Mar, 2013 [facility] [place] [facility] [address] [id number] [place] [address] Mar, 2013 [facility] [place] [facility] [address] [id number] [place] [address] Mar, 2013 [facility] [place] [facility] [address] [id number] [place] [address] Mar, 2013 [facility] [place] [facility] [address] [id number] [place] [address] Mar, 2013 [facility] [place] [facility] [address] [id number] [place] [address] Mar, 2013 [facility] [place] [facility] [address] [id number] [place] [address] Mar, 2013 [facility] [place] [facility] [address] [id number] [place] [address] Mar, 2013 [facility] [place] [facility] [address] [id number] [place] [address] Feb, [facility] [place] [facility] [address] [facility] [id number] [place] [address] Feb, [facility] [place] [facility] [address] [id number] [place] [address] Feb, [facility] [place] [facility] [address] [id number] [place] [address] Feb, [facility] [place] [facility] [address] [id number] [place] [address] Feb, [facility] [place] [facility] [address] [facility] [id number] [place] [address] Feb, [facility] [place] [facility] [address] [facility] [id number] [place] [address] Feb, [facility] [place] [facility] [address] [facility] [id number] [place] [address] Feb, [facility] [place] [facility] [address] [id number] [place] [address] Feb, [facility] [place] [facility] [address] [facility] [id number] [place] [address] Feb, [facility] [place] [facility] [address] [id number] [place] [address] Feb, [facility] [place] [facility] [address] [id number] [place] [address] Feb, [facility] [place] [facility] [address] [id number] [place] [address] Feb, [facility] [place] [facility] [address] [id number] [place] [address] Feb, [facility] [place] [facility] [address] [id number] [place] [address] January, [facility] [place] [facility] [address] [id number] [place] [address] January, [facility] [place] [facility] [address] [id number] [place] [address] January, [facility] [place] [facility] [address] [facility] [id number] [place] [address] January, [facility] [place] [facility] [address] [id number] [place] [address] January, [facility] [place] [facility] [address] [id number] [place] [address] January, [facility] [place] [facility] [address] [id number] [place] [address] January, [facility] [place] [facility] [address] [id number] [place] [address] January, [facility] [place] [facility] [address] [id number] [place] [address] January, [facility] [place] [facility] [address] [facility] [id number] [place] [address] January, [facility] [place] [facility] [address] [id number] [place] [address] January, [facility] [place] [facility] [address] [id number] [place] [address] January, [facility] [place] [facility] [address] [facility] [id number] [place] [address] January, [facility] [place] [facility] [address] [id number] [place] [address] January, [facility] [place] [facility] [address] [id number] [place] [address] Dec, [facility] [place] [facility] [address] [id number] [place] [address] Dec, [facility] [place] [facility] [address] [id number] [place] [address] Dec, [facility] [place] [facility] [address] [id number] [place] [address] Dec, [facility] [place] [facility] [address] [id number] [place] [address] Dec, [facility] [place] [facility] [address] [id number] [place] [address] Dec, [facility] [place] [facility] [address] [facility] [id number] [place] [address] Dec, [facility] [place] [facility] [address] [id number] [place] [address] Dec, [facility] [place] [facility] [address] [id number] [place] [address] Dec, [facility] [place] [facility] [address] [id number] [place] [address] Dec, [facility] [place] [facility] [address] [facility] [id number] [place] [address] Nov, [facility] [place] [facility] [address] [id number] [place] [address] Nov, [facility] [place] [facility] [address] [id number] [place] [address] Nov, [facility] [place] [facility] [address] [id number] [place] [address] Nov, [facility] [place] [facility] [address] [id number] [place] [address] Nov, [facility] [place] [facility] [address] [id number] [place] [address] Nov, [facility] [place] [facility] [address] [id number] [place] [address] Nov, [facility] [place] [facility] [address] [id number] [place] [address] Nov, [facility] [place] [facility] [address] [id number] [place] [address] Nov, [facility] [place] [facility] [address] [id number] [place] [address] Nov, [facility] [place] [facility] [address] [id number] [place] [address] Oct, [facility] [place] [facility] [address] [id number] [place] [address] Oct, [facility] [place] [facility] [address] [id number] [place] [address] Oct, [facility] [place] [facility] [address] [facility] [id number] [place] [address] Oct, [facility] [place] [facility] [address] [id number] [place] [address] Oct, [facility] [place] [facility] [address] [id number] [place] [address] Oct, [facility] [place] [facility] [address] [id number] [place] [address] 14 Oct, 2013 [facility] [place] [facility] [address] [id number] [place] [address] Oct, [facility] [place] [facility] [address] [id number] [place] [address] Oct, [facility] [place] [facility] [address] [id number] [place] [address] Oct, [facility] [place] [facility] [address] [id number] [place] [address] Oct, [facility] [place] [facility] [address] [id number] [place] [address] Oct, [facility] [place] [facility] [address] [id number] [place] [address] Oct, [facility] [place] [facility] [address] [id number] [place] [address] Oct, [facility] [place] [facility] [address] [id number] [place] [address] Sep, [facility] [place] [facility] [address] [id number] [place] [address] Sep, [facility] [place] [facility] [address] [id number] [place] [address] Sep, [facility] [place] [facility] [address] [id number] [place] [address] Sep, [facility] [place] [facility] [address] [id number] [place] [address] Sep, [facility] [place] [facility] [address] [id number] [place] [address] Sep, [facility] [place] [facility] [address] [id number] [place] [address] Sep, [facility] [place] [facility] [address] [id number] [place] [address] Sep, [facility] [place] [facility] [address] [id number] [place] [address] Sep, [facility] [place] [facility] [address] [id number] [place] [address] Sep, [facility] [place] [facility] [address] [id number] [place] [address] Aug, [facility] [place] [facility] [address] [id number] [place] [address] Aug, [facility] [place] [facility] [address] [id number] [place] [address] Jul, [facility] [place] [facility] [address] [id number] [place] [address] Jul, [facility] [place] [facility] [address] [id number] [place] [address] Jul, [facility] [place] [facility] [address] [id number] [place] [address] Jul, [facility] [place] [facility] [address] [id number] [place] [address] Jul, [facility] [place] [facility] [address] [id number] [place] [address] Jul, [facility] [place] [facility] [address] [id number] [place] [address] Jul, [facility] [place] [facility] [address] [id number] [place] [address] Jul, [facility] [place] [facility] [address] [id number] [place] [address] Jul, [facility] [place] [facility] [address] [id number] [place] [address] Jul, [facility] [place] [facility] [address] [id number] [place] [address] Jul, [facility] [place] [facility] [address] [id number] [place] [address] Jul, [facility] [place] [facility] [address] [id number] [place] [address] Jul, [facility] [place] [facility] [address] [id number] [place] [address] Jul, 2012 [facility] [place] [facility] [address] [id number] [place] [address] Jul, 2012 [facility] [place] [facility] [address] [id number] [place] [address] Jul, 2012 [facility] [place] [facility] [address] [id number] [place] [address] Jul, 2012 [facility] [place] [facility] [address] [id number] [place] [address] Jul, 2012 [facility] [place] [facility] [address] [id number] [place] [address] Jul, 2012 [facility] [place] [facility] [address] [id number] [place] [address] Jun, 2012 [facility] [place] [facility] [address] [id number] [place] [address] Jun, 2012 [facility] [place] [facility] [address] [id number] [place] [address] Jun, 2012 [facility] [place] [facility] [address] [id number] [place] [address] Jun, 2012 [facility] [place] [facility] [address] [id number] [place] [address] Jun, 2012 [facility] [place] [facility] [address] [id number] [place] [address] Jun, 2012 [facility] [place] [facility] [address] [id number] [place] [address] Jun, 2012 [facility] [place] [facility] [address] [id number] [place] [address] Jun, 2012 [facility] [place] [facility] [address] [id number] [place] [address] Jun, 2012 [facility] [place] [facility] [address] [id number] [place] [address] Jun, 2012 [facility] [place] [facility] [address] [id number] [place] [address] Jun, 2012 [facility] [place] [facility] [address] [id number] [place] [address] 26 May, 2012 [facility] [place] [facility] [address] [id number] [place] [address] 25 May, 2012 [facility] [place] [facility] [address] [id number] [place] [address] 19 May, 2012 [facility] [place] [facility] [address] [id number] [place] [address] 17 May, 2012 [facility] [place] [facility] [address] [id number] [place] [address] 11 May, 2012 [facility] [place] [facility] [address] [id number] [place] [address] 10 May, 2012 [facility] [place] [facility] [address] [id number] [place] [address] May, [facility] [place] [facility] [address] [id number] [place] [address] 05 May, 2013 [facility] [place] [facility] [address] [id number] [place] [address] Apr, [facility] [place] [facility] [address] [id number] [place] [address] Apr, [facility] [place] [facility] [address] [id number] [place] [address] Apr, [facility] [place] [facility] [address] [id number] [place] [address] Apr, [facility] [place] [facility] [address] [id number] [place] [address] Apr, [facility] [place] [facility] [address] [id number] [place] [address] Mar, [facility] [place] [facility] [address] [id number] [place] [address] Mar, [facility] [place] [facility] [address] [id number] [place] [address] Mar, [facility] [place] [facility] [address] [id number] [place] [address] Mar, [facility] [place] [facility] [address] [id number] [place] [address] Mar, [facility] [place] [facility] [address] [id number] [place] [address] Mar, [facility] [place] [facility] [address] [id number] [place] [address] Mar, [facility] [place] [facility] [address] [id number] [place] [address] Mar, [facility] [place] [facility] [address] [id number] [place] [address] Feb, [facility] [place] [facility] [address] [id number] [place] [address] Feb, [facility] [place] [facility] [address] [id number] [place] [address] January, [facility] [place] [facility] [address] [id number] [place] [address] January, [facility] [place] [facility] [address] [id number] [place] [address] Dec, [facility] [place] [facility] [address] [id number] [place] [address] Dec, [facility] [place] [facility] [address] [id number] [place] [address] Nov, [facility] [place] [facility] [address] [id number] [place] [address] Nov, [facility] [place] [facility] [address] [id number] [place] [address] Nov, [facility] [place] [facility] [address] [id number] [place] [address] Nov, [facility] [place] [facility] [address] [id number] [place] [address] Oct, [facility] [place] [facility] [address] [id number] [place] [address] Oct, [facility] [place] [facility] [address] [id number] [place] [address] Oct, [facility] [address] [id number] [place] [address] Oct, [facility] [place] [facility] [address] [id number] [place] [address] 16 Oct, 2012 [facility] [place] [facility] [address] [id number] [place] [address] 14 Oct, 2012 [facility] [place] [facility] [address] [id number] [place] [address] 08 Oct, 2012 [facility] [place] [facility] [address] [id number] [place] [address] Oct, [facility] [place] [facility] [address] [id number] [place] [address] Oct, [facility] [place] [facility] [address] [id number] [place] [address] Sep, [facility] [place] [facility] [address] [id number] [place] [address] Sep, [facility] [place] [facility] [address] [id number] [place] [address] Sep, [facility] [place] [facility] [address] [id number] [place] [address] Sep, [facility] [place] [facility] [address] [id number] [place] [address] Sep, [facility] [place] [facility] [address] [id number] [place] [address] Sep, [facility] [place] [facility] [address] [id number] [place] [address] Sep, [facility] [place] [facility] [address] [id number] [place] [address] Sep, [facility] [place] [facility] [address] [id number] [place] [address] Aug, [facility] [place] [facility] [address] [id number] [place] [address] Aug, [facility] [place] [facility] [address] [id number] [place] [address] Aug, [facility] [place] [facility] [address] [id number] [place] [address] Aug, [facility] [place] [facility] [address] [id number] [place] [address] Aug, [facility] [place] [facility] [address] [id number] [place] [address] Aug, [facility] [place] [facility] [address] [id number] [place] [address] Aug, [facility] [place] [facility] [address] [id number] [place] [address] Aug, [facility] [place] [facility] [address] [id number] [place] [address] Jul, [facility] [place] [facility] [address] [id number] [place] [address] Jul, [facility] [place] [facility] [address] [id number] [place] [address] Jul, [facility] [place] [facility] [address] [id number] [place] [address] Jul, [facility] [place] [facility] [address] [id number] [place] [address] Jul, [facility] [place] [facility] [address] [id number] [place] [address] Jul, [facility] [place] [facility] [address] [id number] [place] [address] Jun, [facility] [place] [facility] [address] [id number] [place] [address] Jun, [facility] [id number] [place] [address] Jun, [facility] [address] [id number] [place] [address] Jun, [facility] [address] [id number] [place] [address] Jun, [facility] [address] [facility] [id number] [place] [address] Jun, [facility] [address] [facility] [id number] [place] [address] Jun, [facility] [address] [id number] [place] [address] Jun, [facility] [address] [id number] [place] [address] Jun, [facility] [address] [facility] [id number] [place] [address] May, [facility] [address] [id number] [place] [address] 24 May, 2012 [facility] [address] [id number] [place] [address] May, [facility] [address] [id number] [place] [address] Apr, [facility] [address] [id number] [place] [address] Apr, [facility] [address] [id number] [place] [address] Apr, [facility] [address] [id number] [place] [address] Apr, [facility] [address] [id number] [place] [address] Apr, [facility] [address] [id number] [place] [address] Apr, [facility] [address] [id number] [place] [address] Mar, [facility] [address] [id number] [place] [address] Mar, [facility] [address] [id number] [place] [address] Mar, [facility] [address] [id number] [place] [address] Mar, [facility] [address] [id number] [place] [address] Feb, [facility] [address] [id number] [place] [address] Feb, [facility] [address] [id number] [place] [address] Feb, [facility] [address] [id number] [place] [address] Feb, [facility] [address] [id number] [place] [address] Feb, [facility] [address] [id number] [place] [address] January, [facility] [address] [id number] [place] [address] January, [facility] [address] [id number] [place] [address] January, [facility] [address] [id number] [place] [address] January, [facility] [address] [id number] [place] [address] January, [facility] [address] [id number] [place] [address] January, [facility] [address] [id number] [place] [address] Dec, [facility] [address] [id number] [place] [address] Dec, [facility] [address] [id number] [place] [address] Dec, [facility] [address] [id number] [place] [address] Dec, [facility] [address] [id number] [place] [address] Dec, [facility] [address] [id number] [place] [address] 27 Nov, 2011 [facility] [address] [id number] [place] [address] 14 Nov, 2011 [facility] [address] [id number] [place] [address] 12 Nov, 2011 [facility] [address] [id number] [place] [address] 07 Nov, 2011 [facility] [address] [id number] [place] [address] 29 Oct, 2011 [facility] [address] [id number] [place] [address] 28 Oct, 2011 [facility] [address] [id number] [place] [address] 24 Oct, 2011 [facility] [id number] [place] [address] 13 Oct, 2011 [facility] [address] [id number] [place] [address] 08 Oct, 2011 [facility] [address] [id number] [place] [address] Sep, [facility] [address] [id number] [place] [address] 30 Sep, 2011 [facility] [address] [id number] [place] [address] Sep, [facility] [address] [id number] [place] [address] Sep, [facility] [address] [id number] [place] [address] Sep, [facility] [address] [id number] [place] [address] 05 Sep, 2011 [facility] [address] [id number] [place] [address] Aug, [facility] [address] [id number] [place] [address] Aug, [facility] [address] [facility] [id number] [place] [address] Aug, [facility] [address] [facility] [id number] [place] [address] Jul, [facility] [address] [id number] [place] [address] Jul, [facility] [address] [id number] [place] [address] Jul, [facility] [address] [facility] [id number] [place] [address] Jul, [facility] [address] [id number] [place] [address] Jun, [facility] [address] [id number] [place] [address] Jun, [facility] [address] [id number] [place] [address] Jun, [facility] [address] [id number] [place] [address] Jun, [facility] [address] [id number] [place] [address] Jun, [facility] [address] [id number] [place] [address] Jun, [facility] [address] [id number] [place] [address] Mar, [facility] [address] [facility] [id number] [place] [address] Dec, [facility] [address] [id number] [place] [address] Dec, [facility] [address] [id number] [place] [address] Nov, [facility] [address] [id number] [place] [address] 16 Nov, 2010 [facility] [address] [id number] [place] [address] 10 Sep, 2010 [facility] [address] [id number] [place] [address] 31 Aug, 2010 [facility] [address] [id number] [place] [address] 29 Aug, 2010 [facility] [address] [id number] [place] [address] 29 Aug, 2010 [facility] [address] [id number] [place] [address] 29 Aug, 2010 [facility] [address] [id number] [place] [address] 27 Aug, 2010 [facility] [address] [id number] [place] [address] 14 Aug, 2010 [facility] [address] [id number] [place] [address] 08 Aug, 2010 [facility] [address] [id number] [place] [address] 08 Aug, 2010 [facility] [address] [id number] [place] [address] 07 Aug, 2010 [facility] [address] [id number] [place] [address] 06 Aug, 2010 [facility] [address] [id number] [place] [address] 06 Aug, 2010 [facility] [address] [id number] [place] [address] Aug, [facility] [address] [id number] [place] [address] 30 Jul, 2010 [facility] [address] [id number] [place] [address] 30 Jul, 2010 [facility] [address] [id number] [place] [address] 30 Jul, 2010 [facility] [address] [id number] [place] [address] Jul, [facility] [address] [id number] [place] [address] Jul, [facility] [address] [id number] [place] [address] Jul, [facility] [address] [id number] [place] [address] 24 Jun, 2010 [facility] [address] [id number] [place] [address] Jun, [facility] [address] [id number] [place] [address] Jun, [facility] [address] [id number] [place] [address] Jun, [facility] [address] [id number] [place] [address] Apr, [facility] [address] [id number] [place] [address] Mar, [facility] [address] [id number] [place] [address] Feb, [facility] [address] [id number] [place] [address] January, [facility] [address] [id number] [place] [address] 15 Dec, 2009 [facility] [address] [id number] [place] [address] Nov, [facility] [address] [id number] [place] [address] Aug, [facility] [address] [id number] [place] [address] Aug, [facility] [address] [id number] [place] [address] 07 Aug, 2009 [facility] [address] [id number] [place] [address] Jul, [facility] [address] [id number] [place] [address] Jul, [facility] [address] [id number] [place] [address] Jul, [facility] [address] [id number] [place] [address] Jun, [facility] [address] [id number] [place] [address] Jun, [facility] [id number] [place] [address] Jun, [facility] [address] [id number] [place] [address] Jun, [facility] [id number] [place] [address] Jun, [facility] [address] [id number] [place] [address] Jun, [facility] [id number] [place] [address] Apr, [facility] [address] [id number] [place] [address] Apr, [facility] [id number] [place] [address] Feb, [facility] [address] [id number] [place] [address] January, [facility] [id number] [place] [address] Dec, IMMUNIZATIONS No Known Immunizations SOCIAL HISTORY Never Assessed REASON FOR VISIT PLAN OF CARE VITAL SIGNS MEDICATIONS Unknown Medications RESULTS No Results PROCEDURES Procedure Date Ordered Result Body Site PSYTX PT&/FAMILY 45 MINUTES February 04, 2014 INSTRUCTIONS MEDICATIONS ADMINISTERED No Known [...] tunnel release (Left) 2000 Surgical History EGD ([facility]) 2009 Surgical History colonoscopy 2009 ([facility]), 2013 ([facility] ) Surgical History heart cath: CAD w/ [...] History inability to urinate 09/16/15 Hospitalization History [facility] 1999's Hospitalization History hyperkalemia 10/2017 Hospitalization History fluid in lung
--- OUTSIDE RECORDS SUMMARY | 2020-03-01 16:55 | XMS REPORT ---
Author Author Michele Verduzco Doctor Organization [facility] Address Unknown Phone Unavailable Care Team Providers Care Study Director Name Role Phone Migration, Doctor Unavailable Unavailable PROBLEMS Type Condition ICD9-CM Code LYA83-QD Code Onset Dates Condition S tatus SNOMED Code Problem DM neuro manif type II E11.49 Active 74983637 Problem Chronic pain G89.29 Active 7408102 1 Problem Diabetes E11.9 Active 93754404 Problem Reactive airway disease J45.909 Active 620964121367 Problem Leukocytosis D72.829 Active 0717257 06 Problem Insomnia, unspecified type G47.00 Act sharon 037402648 Problem Bipolar I disorder, most recent episode (or curr ent) mixed, moderate F31.62 Active 46765999 Problem Primary osteoarthritis of right knee M17.11 Active [id number] Problem Cough R05 Active 93820823 Problem Pure hypercholesterolemia E78.00 Acti ve 418510283 Problem Dysuria R30.0 Active 65627776 Problem Benign prostatic hyperplasia with lower urinary tract symptoms, unspecified morphology N40.1 Active 36317 6007 Problem Eustachian tube dysfunction, unspecified laterality H69.80 Active 22546667 Problem Polyneuropathy associated with underlying disease G63 Active 176515938 Problem Diabetic polyneuropathy associated with type 2 d iabetes mellitus E11.42 Active 79305032 Problem Anemia of chronic illness D63.8 Acti ve 323928230 Problem Chronic lymphocytic leukemia C91.10 A ctive 17835019 Problem Bilateral primary osteoarthritis of knee M17.0 Active 206643939 Problem 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 Active 500151781 Problem Eye exam abnormal R93.8 Active 16 9003281 Problem Retinal edema H35.81 Active 765487 6 Problem Lymphocytosis D72.820 Active 803569 09 Problem Bipolar disorder, in partial remission, most rec ent episode depressed F31.75 Active 02193579 Problem Hypokalemia E87.6 Active 20149786 Problem Falling R29.6 Active 673449057 Problem Pressure ulcer of other site, stage 3 L89.893 Active 343512483 Problem Other iron deficiency anemia D50.8 A ctive 03764725 Problem Mild cognitive impairment G31.84 Acti ve 738943698 Problem Skin cancer C44.90 Active 97796956 7 Problem MCC (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 Z79.4 Active 368025868 Problem Morbid obesity E66.01 Active 72063 6002 Problem Mood disorder F39 Active 853265 05 Problem Anxiety F41.9 Active 26566163 Problem Essential hypertension I10 Active 30328500 Problem Bipolar disorder F31.9 Active 137 26096 Problem Chronic diastolic (congestive) heart failure I50.3 2 Active 261880998 Problem Psychophysiological insomnia F51.04 A ctive 199746138 Problem Type 2 diabetes mellitus with diabetic neuropathy, uns pecified E11.40 Active 97241012 ALLERGIES No Information ENCOUNTERS Encounter Location Date Diagnosis [place] [address] [address] Oct, [place] [address] [address] Oct, [place] [address] [address] Sep, [place] [address] [address] Sep, Mood disorder [address] [place] [address] [address] Sep, Bipolar disorder, in partial remission, most recent episode depressed F31.75 and Mild cognitive impairment G31.84 [place] [address] [address] Sep, Mood disorder F39 [place] [address] [address] Sep, [place] [address] [address] Sep, Mood disorder F39 [place] [address] [address] Sep, [place] [address] [place] [id number] [place] [address] Aug, Mood disorder F39 [facility] [id number] [place] [address] Aug, [facility] [id number] [place] [address] Aug, [facility] [id number] [place] [address] Aug, [facility] [id number] [place] [address] Aug, [facility] [id number] [place] [address] Aug, [facility] [address] [place] [id number] [place] [address] Aug, [facility] [id number] [place] [address] Aug, [facility] [id number] [place] [address] Aug, Essential hypertension I10 [facility] [address] [place] [id number] [place] [address] Aug, Bipolar disorder, in partial remission, most recent episode depressed F31.75 and Mild cognitive impairment G31.84 [facility] [address] [place] [id number] [place] [address] Aug, Mood disorder F39 [facility] [id number] [place] [address] Aug, [facility] [id number] [place] [address] Aug, Bipolar disorder, in partial remission, most recent episode depressed F31.75 and Mild cognitive impairment G31.84 [facility] [address] [place] [id number] [place] [address] Jul, Bipolar disorder, in partial remission, most recent episode depressed F31.75 and Mild cognitive impairment G31.84 [facility] [address] [place] [id number] [place] [address] Jul, Psychophysiological insomnia F51.04 [facility] [address] [address] Jul, [facility] [address] [address] Jul, [facility] [address] [address] Jul, [facility] [address] [address] Jul, [facility] [address] [address] Jul, [facility] [address] [address] Jul, [facility] [address] [address] Jul, Bipolar disorder, in partial remission, most recent episode depressed F31.75 and Mild cognitive impairment G31.84 [facility] [address] [address] Jul, Chronic pain G89.29 ; Diabetes E11.9 ; E ssential hypertension I10 ; Ill feeling R68.89 ; Local infection of the skin and subcutaneous tissue, unspecified L08.9 and Other injury of unspecified body region, initial encounter T14.8XXA [facility] [address] [address] Jun, Bipolar disorder, in partial remission, most recent episode depressed F31.75 and Mild cognitive impairment G31.84 [facility] [address] [address] Jun, [facility] [address] [address] Jun, Bipolar disorder, in partial remission, most recent episode depressed F31.75 and Mild cognitive impairment G31.84 [facility] [address] [address] Jun, Psychophysiological insomnia F51.04 [facility] [address] [address] Jun, Psychophysiological insomnia F51.04 ; Ch ronic pain G89.29 ; Bipolar I disorder, most recent episode (or current) mixed, moderate F31.62 ; 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 ; Polyneuropathy associated with underlying disease G63 ; Type 2 diabetes mellitus with diabetic neuropathy, unspecified E11.40 ; MCC (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 Z79.4 and Hyperglycemia R73.9 [place] [address] [address] Jun, Bipolar disorder, in partial remission, most recent episode depressed F31.75 and Mild cognitive impairment G31.84 [place] [address] [address] Jun, [place] [address] [address] Jun, Bipolar disorder F31.9 [place] [address] [address] May, Bipolar disorder, in partial remission, most recent episode depressed F31.75 and Mild cognitive impairment G31.84 [place] [address] [address] May, [place] [address] [address] Apr, Chronic pain G89.29 and Bipolar disorder F31.9 [facility] [address] [address] Mar, Bipolar disorder F31.9 and Chronic pain G89.29 [facility] [address] [address] Feb, Bipolar disorder F31.9 [facility] [address] [address] Feb, Cellulitis of right upper extremity L03. 113 and Skin abrasion T14.8XXA [facility] [address] [address] Feb, Bipolar disorder, in partial remission, most recent episode depressed F31.75 and Mild cognitive impairment G31.84 [facility] [address] [address] Feb, Chronic pain G89.29 [facility] [address] [address] Feb, Bipolar disorder, in partial remission, most recent episode depressed F31.75 and Mild cognitive impairment G31.84 [place] [address] [address] January, Bipolar disorder, in partial remission, most recent episode depressed F31.75 and Mild cognitive impairment G31.84 [place] [address] [address] January, Chronic pain G89.29 and Bipolar disorder F31.9 [place] [address] [address] January, Bipolar disorder, in partial remission, most recent episode depressed F31.75 and Mild cognitive impairment G31.84 [place] [address] [address] Dec, [place] [address] [address] Dec, Chronic pain G89.29 and Bipolar disorder F31.9 [facility] [address] [address] Dec, Edema of both lower extremities R60.0 [place] [address] [address] Dec, Bipolar disorder F31.9 [facility] [address] [address] Dec, Bipolar disorder, in partial remission, most recent episode depressed F31.75 and Mild cognitive impairment G31.84 [place] [address] [address] Nov, [place] [address] [address] Nov, Chronic pain G89.29 [place] [address] [address] Nov, Bipolar disorder, in partial remission, most recent episode depressed F31.75 and Mild cognitive impairment G31.84 [place] [address] [address] Nov, Bipolar disorder F31.9 [place] [address] [address] 04 Nov, 2018 Encounter for Medicare annual [...] unspecified morphology N40.1 and Essential hypertension I10 [place] [address] [address] Oct, Chronic pain G89.29 [place] [address] [address] Oct, Diabetes E11.9 [place] [address] [address] Oct, Bipolar I disorder, most recent episode (or current) mixed, moderate F31.62 and Mild cognitive impairment G31.84 [place] [address] [address] Oct, Bipolar I disorder, most recent episode (or current) mixed, moderate F31.62 and Mild cognitive impairment G31.84 [place] [address] [address] Sep, Bipolar I disorder, most recent episode (or current) mixed, moderate F31.62 and Mild cognitive impairment G31.84 [place] [address] [address] Sep, [address] [address] Sep, Diabetes E11.9 ; Hypoxia R09.02 ; Hyperg lycemia R73.9 ; Therapeutic drug monitoring Z51.81 ; BMI 50.0-59.9, adult Z68.43 and Skin cancer C44.[address] [address] Sep, Chronic pain G89.[address] [address] Sep, Bipolar I disorder, most recent episode (or current) mixed, moderate F31.[address] [address] Sep, [address] [address] Sep, [place] [address] [address] Aug, Chronic pain G89.[address] [address] Aug, Bipolar I disorder, most recent episode (or current) mixed, moderate F31.[address] [address] Aug, Bipolar I disorder, most recent episode (or current) mixed, moderate F31.62 and Mild cognitive impairment G31.84 [place] [address] [address] Jul, [place] [id number] [place] [address] Jul, Chronic pain G89.29 [facility] [address] [address] Jul, Bipolar I disorder, most recent episode (or current) mixed, moderate F31.62 and Mild cognitive impairment G31.84 [facility] [address] [address] Jul, Bipolar I disorder, most recent episode (or current) mixed, moderate F31.62 and MCI (mild cognitive impairment) G31.84 [facility] [address] [address] Jul, [facility] [address] [address] Jul, [facility] [address] [address] Jul, Bipolar I disorder, most recent episode (or current) mixed, moderate F31.62 [facility] [address] [place] [id number] [place] [address] Jul, Chronic pain G89.29 [facility] [address] [address] Jun, Bipolar I disorder, most recent episode (or current) mixed, moderate F31.62 [facility] [address] [place] [id number] [place] [address] Jun, Pre-procedure lab exam Z01.812 [facility] [address] [place] [id number] [place] [address] Jun, [facility] [address] [place] [id number] Jun, [facility] [address] [place] [id number] [place] [address] Jun, [facility] [address] [place] [id number] [place] [address] Jun, Forgetfulness R68.89 ; Pre-syncope R55 ; Localized edema R60.0 ; Other iron deficiency anemia D50.8 and BMI 50.0-59.9, adult Z68.43 [place] [address] [address] Jun, Chronic pain G89.29 [place] [address] [address] Jun, Chronic pain G89.29 [place] [address] [address] Jun, Bipolar I disorder, most recent episode (or current) mixed, moderate F31.62 [place] [address] [address] May, Chronic pain G89.29 [place] [address] [address] Apr, [place] [address] [address] Apr, Chronic pain G89.29 [place] [address] [address] Apr, Primary osteoarthritis of right knee M17 .11 [place] [address] [address] Mar, [place] [address] [address] Mar, BMI 50.0-59.9, adult Z68.43 and Bipolar disorder, in partial remission, most recent episode depressed F31.75 [place] [address] [address] Mar, Diabetes E11.9 ; Pure hypercholesterolem ia E78.00 ; Essential hypertension I10 ; Nausea with vomiting, unspecified R11.2 and Headache, unspecified headache type R51 [place] [address] [address] Mar, Bipolar I disorder, most recent episode (or current) mixed, moderate F31.62 [facility] [address] [address] Mar, Bipolar I disorder, most recent episode (or current) mixed, moderate F31.62 [facility] [address] [address] Mar, Chronic pain G89.29 [facility] [address] [address] Mar, Bipolar I disorder, most recent episode (or current) mixed, moderate F31.62 [facility] [address] [address] Feb, Bipolar I disorder, most recent episode (or current) mixed, moderate F31.62 [place] [address] [address] Feb, Chronic pain G89.29 [place] [address] [address] Feb, Decubitus ulcer of right foot, stage 3 L 89.893 and BMI 50.0-59.9, adult Z68.43 [place] [address] [address] Feb, Bipolar I disorder, most recent episode (or current) mixed, moderate F31.62 [place] [address] [address] Feb, [facility] [address] [address] January, [facility] [address] [address] January, Chronic pain G89.29 [facility] [address] [address] January, Bipolar I disorder, most recent episode (or current) mixed, moderate F31.62 [facility] [address] [address] January, Bipolar I disorder, most recent episode (or current) mixed, moderate F31.62 [place] [address] [address] Dec, Bipolar I disorder, most recent episode (or current) mixed, moderate F31.62 and BMI 50.0-59.9, adult Z68.43 [place] [address] [address] Dec, Bipolar I disorder, most recent episode (or current) mixed, moderate F31.62 [place] [address] [address] Dec, Chronic pain G89.29 [place] [address] [address] Dec, DM neuro manif type II E11.49 ; Right fl ank pain R10.9 ; 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 ; Encounter for medication monitoring Z51.81 and BMI 50.0-59.9, adult Z68.43 [place] [address] [address] Dec, Bipolar I disorder, most recent episode (or current) mixed, moderate F31.62 [place] [address] [address] Nov, Bipolar I disorder, most recent episode (or current) mixed, moderate F31.62 [place] [address] [address] Nov, Chronic pain G89.29 [place] [address] [address] Nov, Bipolar I disorder, most recent episode (or current) mixed, moderate F31.62 [place] [address] [address] Nov, Hypokalemia E87.6 [place] [address] [address] Nov, Bipolar I disorder, most recent episode (or current) mixed, moderate F31.62 [place] [address] [address] Oct, Chronic pain G89.29 [facility] [address] [address] Oct, BMI 50.0-59.9, adult Z68.43 and Bipolar I disorder, most recent episode (or current) mixed, moderate F31.62 [place] [address] [address] Oct, Bipolar I disorder, most recent episode (or current) mixed, moderate F31.62 [place] [address] [address] Oct, [place] [address] [address] Oct, Hypokalemia E87.6 [place] [address] [address] Oct, DM neuro manif type II E11.49 [place] [address] [address] Oct, Bipolar I disorder, most recent episode (or current) mixed, moderate F31.62 [place] [address] [address] Oct, Bipolar I disorder, most recent episode (or current) mixed, moderate F31.62 [place] [address] [address] 14 Oct, 2017 Hyperkalemia E87.5 ; Falling R29.6 ; BMI 50.0-59.9, adult Z68.43 and Acute left ankle pain M25.572 [place] [address] [address] Oct, DM neuro manif type II E11.49 [place] [address] [address] Oct, [place] [address] [address] Sep, Chronic pain G89.29 [place] [address] [address] Sep, [place] [address] [address] Sep, Bilateral primary osteoarthritis of knee M17.0 [place] [address] [address] Sep, Generalized edema R60.[address] [address] Sep, Bipolar I disorder, most recent episode (or current) mixed, moderate F31.[address] [address] Sep, Hypoxia R09.02 ; Other hypervolemia E87. 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 ; Anemia of chronic illness D63.8 and BMI 50.0-59.9, adult Z68.[address] [address] Sep, [address] [address] Sep, Bipolar I disorder, most recent episode (or current) mixed, moderate F31.62 [place] [address] [address] Aug, Chronic pain G89.29 [place] [address] [address] Aug, Generalized edema R60.1 [place] [address] [address] Aug, [address] [place] [address] Aug, [facility] [address] [place] [address] Aug, Bipolar I disorder, most recent episode (or current) mixed, moderate F31.62 [facility] [address] [address] Aug, Bipolar I disorder, most recent episode (or current) mixed, moderate F31.62 [place] [address] [address] Aug, Chronic pain G89.29 [place] [address] [place] [address] Jul, Bipolar I disorder, most recent episode (or current) mixed, moderate F31.62 [place] [address] [address] Jul, Bipolar I disorder, most recent episode (or current) mixed, moderate F31.62 and BMI 60.0-69.9, adult Z68.44 [place] [address] [address] Jul, Bipolar I disorder, most recent episode (or current) mixed, moderate F31.62 [place] [address] [address] Jul, Chronic pain G89.29 [place] [address] [address] Jul, Bipolar I disorder, most recent episode (or current) mixed, moderate F31.62 [place] [address] [address] Jun, Polyneuropathy associated with underlyin g disease G63 and Diabetes E11.9 [place] [address] [address] 16 Jun, 2017 Bipolar I disorder, most recent episode (or current) mixed, moderate F31.62 [place] [address] [address] Jun, Chronic pain G89.29 [facility] [address] [place] [address] 27 May, 2017 Bipolar I disorder, most recent episode (or current) mixed, moderate F31.62 [facility] [address] [address] May, Bipolar I disorder, most recent episode (or current) mixed, moderate F31.62 [facility] [address] [address] 20 May, 2017 Diabetic polyneuropathy associated with type 2 diabetes mellitus E11.42 [place] [address] [address] 18 May, 2017 Bipolar I disorder, most recent episode (or current) mixed, moderate F31.62 [place] [address] [address] 13 May, 2017 Bipolar I disorder, most recent episode (or current) mixed, moderate F31.62 [place] [address] [address] May, Chronic pain G89.29 [facility] [address] [place] [address] Apr, Bipolar I disorder, most recent episode (or current) mixed, moderate F31.62 [place] [address] [address] Apr, [place] [address] [address] Apr, Chronic pain G89.29 and DM neuro manif t ype II E11.49 [place] [address] [address] Apr, [facility] [address] [address] Apr, Bipolar I disorder, most recent episode (or current) mixed, moderate F31.62 [facility] [address] [address] Apr, Chronic pain G89.29 [facility] [address] [address] Apr, Iliotibial band syndrome, left M76.32 [facility] [address] [address] Apr, Bipolar I disorder, most recent episode (or current) mixed, moderate F31.62 [place] [address] [address] Mar, Bipolar I disorder, most recent episode (or current) mixed, moderate F31.62 [place] [address] [address] Mar, Bipolar I disorder, most recent episode (or current) mixed, moderate F31.62 [place] [address] [address] Mar, [place] [address] [address] Mar, Bipolar I disorder, most recent episode (or current) mixed, moderate F31.62 [place] [address] [address] Mar, Chronic pain G89.29 [place] [address] [address] Mar, Bipolar I disorder, most recent episode (or current) mixed, moderate F31.62 [place] [address] [address] Mar, Bipolar I disorder, most recent episode (or current) mixed, moderate F31.62 [place] [address] [address] Mar, Acute pain of left knee M25.562 ; Left h ip pain M25.552 ; Generalized edema R60.1 and Tongue swelling R22.0 [place] [address] [address] Mar, [facility] [address] [address] Feb, Chronic pain G89.29 [facility] [address] [address] Feb, Diabetes E11.9 [facility] [address] [address] January, Chronic pain G89.29 [facility] [facility] [address] [address] January, [place] [address] [address] January, Bipolar I disorder, most recent episode (or current) mixed, moderate F31.62 [place] [address] [address] Dec, Bipolar I disorder, most recent episode (or current) mixed, moderate F31.62 [place] [address] [address] Dec, Chronic pain G89.29 [facility] [address] [address] Dec, Bipolar I disorder, most recent episode (or current) mixed, moderate F31.62 [place] [address] [address] Dec, Diabetes E11.9 ; Essential hypertension I10 ; Chronic pain G89.29 and Morbid obesity E66.01 [facility] [address] [address] Dec, [place] [address] [address] Dec, Bipolar I disorder, most recent episode (or current) mixed, moderate F31.62 [place] [address] [address] Dec, Bipolar I disorder, most recent episode (or current) mixed, moderate F31.62 [facility] [address] [address] Nov, Chronic pain G89.29 [facility] [address] [address] Nov, Bipolar I disorder, most recent episode (or current) mixed, moderate F31.62 [facility] [address] [address] Nov, [facility] [address] [address] Nov, Bipolar I disorder, most recent episode (or current) mixed, moderate F31.62 [facility] [address] [address] Nov, Bipolar I disorder, most recent episode (or current) mixed, moderate F31.62 [facility] [address] [address] Nov, [facility] [address] [address] Nov, [facility] [address] [address] Nov, [facility] [address] [address] Oct, Chronic pain G89.29 [facility] [address] [address] Oct, Bipolar I disorder, most recent episode (or current) mixed, moderate F31.62 [facility] [address] [address] Oct, [facility] [address] [address] Oct, Chronic pain G89.29 ; Diabetes E11.9 ; A nxiety F41.9 and 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 [facility] [address] [address] Oct, [facility] [address] [address] Oct, Diabetes E11.9 [facility] [address] [address] Oct, Bipolar I disorder, most recent episode (or current) mixed, moderate F31.62 [facility] [address] [address] Sep, Chronic pain G89.29 [facility] [address] [address] Sep, Chronic pain G89.29 [facility] [address] [address] Aug, Chronic pain G89.29 [facility] [address] [address] Jul, [facility] [address] [address] Jul, Diabetes E11.9 [facility] [address] [address] Jul, Chronic pain G89.29 [facility] [address] [address] Jul, Bipolar I disorder, most recent episode (or current) mixed, moderate F31.62 [facility] [address] [address] Jun, Bipolar I disorder, most recent episode (or current) mixed, moderate F31.62 [facility] [address] [address] Jun, [facility] [address] [address] Jun, Bipolar I disorder, most recent episode (or current) mixed, moderate F31.62 [place] [address] [address] 30 May, 2016 Insomnia, unspecified type G47.00 [place] [address] [address] May, Bipolar I disorder, most recent episode (or current) mixed, moderate F31.62 [place] [address] [address] 14 May, 2016 [place] [address] [address] May, Bipolar I disorder, most recent episode (or current) mixed, moderate F31.62 [place] [address] [address] May, Diabetes E11.9 and Essential hypertensio n I10 [place] [address] [address] Apr, Chronic pain G89.29 [place] [address] [address] Apr, Bipolar I disorder, most recent episode (or current) mixed, moderate F31.62 [place] [address] [address] Apr, [place] [address] [address] Apr, [place] [address] [address] Mar, Chronic pain G89.29 ; Headache, unspecif ied headache type R51 ; Neuropathy G62.9 ; Pain of right hip joint M25.551 and Essential hypertension I10 [place] [address] [address] Mar, Chronic pain G89.29 [place] [address] [address] Mar, Bipolar I disorder, most recent episode (or current) mixed, moderate F31.62 [place] [address] [address] Feb, Bipolar I disorder, most recent episode (or current) mixed, moderate F31.62 and Insomnia, unspecified type G47.00 [place] [address] [address] Feb, Chronic pain G89.29 [place] [address] [place] [address] Feb, Bipolar I disorder, most recent episode (or current) mixed, moderate F31.62 [place] [address] [place] [address] January, Bipolar I disorder, most recent episode (or current) mixed, moderate F31.62 [place] [address] [address] January, Chronic pain G89.29 [place] [address] [address] January, Chronic pain G89.29 and Essential hypert ension I10 [place] [address] [address] January, Bipolar I disorder, most recent episode (or current) mixed, moderate F31.62 [place] [address] [address] Dec, [place] [address] [address] Dec, [place] [address] [address] Dec, [address] [address] Dec, [place] [address] [address] Nov, Reactive airway disease J45.909 [place] [address] Nov, [place] [address] [address] Nov, [place] [address] [address] Nov, [place] [address] [address] Nov, [place] [address] [address] Nov, Onychomycosis B35.1 ; Hammertoe M20.40 ; [place] or callus L84 and DM neuro manif type II E11.[address] [address] Nov, Chronic pain G89.29 ; Leukocytosis D72.8 29 and Diabetes E11.[address] [address] Nov, [place] [address] [address] Oct, Bronchitis J40 [place] [address] [address] Oct, [place] [address] [address] Oct, [place] [address] [address] Oct, Mastoiditis, unspecified laterality H70. 90 and Type 2 diabetes mellitus with complication E11.8 [place] [address] [address] Sep, [address] [address] Sep, Dysuria R30.0 ; Cough R05 ; Benign prost atic hyperplasia with lower urinary tract symptoms, unspecified morphology N40.1 ; Hypokalemia E87.6 and Eustachian tube dysfunction, unspecified laterality H69.80 [place] [address] [place] [id number] [place] [address] Sep, Moderate mixed bipolar I disorder F31.62 [facility] [address] [address] Sep, Hypokalemia E87.6 [facility] [address] [address] Sep, [facility] [address] [address] Sep, Upper respiratory tract infection, unspe cified type J06.9 [facility] [address] [address] Aug, [facility] [address] [address] Aug, Dysuria R30.0 [facility] [address] [address] Aug, [facility] [address] [address] Jul, [facility] [address] [address] Jul, [facility] [address] [address] Jul, [facility] [address] [address] Jul, [facility] [address] [address] Jun, [facility] [address] [address] Jun, [facility] [address] [address] Jun, [facility] [address] [address] May, [facility] [address] [address] May, Bipolar I disorder, most recent episode (or current) mixed, moderate 296.62 [facility] [address] [address] May, [facility] [address] [address] May, Bipolar I disorder, most recent episode (or current) mixed, moderate 296.62 and Major depressive disorder, recurrent episode, severe, specified as with psychotic behavior 296.34 [facility] [address] [address] May, Bipolar I disorder, most recent episode (or current) mixed, moderate 296.62 [facility] [address] [address] May, [facility] [address] [address] Apr, [facility] [address] [address] Apr, [facility] [address] [address] Apr, Unspecified disorder of kidney and urete r 593.9 and Diabetes mellitus type 2, uncontrolled 250.02 [facility] [address] [address] Apr, [facility] [address] [address] Apr, [facility] [address] [address] Apr, [facility] [address] [address] Apr, [facility] [address] [address] Apr, Diabetes mellitus type II, uncontrolled 250.02 [facility] [address] [address] Apr, [facility] [address] [address] Mar, [facility] [address] [address] Mar, [facility] [address] [address] Mar, [facility] [address] [address] Mar, Major depressive disorder, recurrent epi sode, severe, specified as with psychotic behavior 296.34 and Bipolar I disorder, most recent episode (or current) mixed, moderate 296.62 [facility] [address] [address] Mar, Diabetes 250.00 ; Anuria 788.5 ; Nausea and vomiting 787.01 and Diarrhea 787.91 [facility] [address] [address] Mar, Diabetes 250.00 [facility] [address] [address] Mar, [facility] [address] [address] Mar, Diabetes 250.00 [facility] [address] [address] Mar, [facility] [address] [address] Mar, [facility] [address] [address] Mar, [facility] [address] [address] Mar, [facility] [address] [address] Mar, Bipolar I disorder, most recent episode (or current) mixed, moderate 296.62 and Major depressive disorder, recurrent episode, severe, specified as with psychotic behavior 296.34 [place] [address] [address] Mar, Magnesium deficiency 275.2 ; Hypokalemia 276.8 ; Nausea & vomiting 787.01 and Diabetes mellitus type 2, uncontrolled 250.02 [facility] [address] [address] Feb, [place] [address] [address] Feb, Bipolar I disorder, most recent episode (or current) mixed, moderate 296.62 [place] [address] [address] Feb, Nausea and vomiting 787.01 ; Left elbow pain 719.42 ; Anuria 788.5 and Diabetes 250.00 [place] [address] [address] Feb, [address] [address] Feb, Hypopotassemia 276.8 and Hypokalemia [address] [address] Feb, Hypopotassemia 276.8 and Hypokalemia 276 .8 [place] [address] [address] Feb, Seborrheic keratoses 702.[address] [address] Feb, Hypopotassemia 276.8 and Low magnesium l evels 275.[address] [address] January, [place] [address] [address] January, [place] [address] [address] January, [place] [id number] [place] [address] January, Scalp lesion 709.9 [facility] [address] [place] [id number] [place] [address] January, [facility] [address] [place] [id number] [place] [address] 30 Dec, 2014 Tear of medial cartilage or meniscus of knee, current 836.0 and 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 [facility] [place] [address] [place] [id number] [place] [address] Dec, [facility] [address] [place] [id number] [place] [address] Dec, [facility] [address] [address] Dec, Squamous cell carcinoma, 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 42 [facility] [address] [place] [id number] [place] [address] 14 Dec, 2014 [facility] [address] [place] [id number] [place] [address] Dec, [facility] [address] [place] [id number] [place] [address] Nov, [facility] [address] [place] [id number] [place] [address] Nov, [facility] [address] [place] [id number] [place] [address] Nov, [facility] [address] [place] [id number] [place] [address] Nov, [facility] [address] [place] [id number] [place] [address] Nov, [facility] [address] [place] [id number] [place] [address] Nov, [facility] [address] [place] [id number] [place] [address] Nov, [facility] [address] [place] [id number] [place] [address] Nov, [facility] [address] [id number] [place] [address] Nov, [facility] [address] [id number] [place] [address] Nov, [facility] [address] [id number] [place] [address] Nov, [facility] [address] [id number] [place] [address] Nov, [facility] [address] [id number] [place] [address] Oct, 2014 [facility] [address] [id number] [place] [address] Oct, 2014 [facility] [address] [id number] [place] [address] Oct, 2014 [facility] [address] [id number] [place] [address] Oct, 2014 [facility] [address] [id number] [place] [address] Oct, 2014 [facility] [address] [id number] [place] [address] Oct, 2014 [facility] [address] [id number] [place] [address] Oct, [facility] [address] [id number] [place] [address] Oct, 2014 [facility] [address] [id number] [place] [address] Oct, [facility] [address] [id number] [place] [address] Sep, [facility] [address] [id number] [place] [address] Sep, [facility] [address] [id number] [place] [address] Sep, [facility] [address] [id number] [place] [address] Sep, [facility] [address] [id number] [place] [address] Sep, [facility] [address] [id number] [place] [address] Sep, [facility] [address] [id number] [place] [address] Sep, [facility] [address] [id number] [place] [address] Sep, [facility] [address] [id number] [place] [address] Sep, [facility] [address] [id number] [place] [address] Sep, [facility] [address] [id number] [place] [address] Sep, [facility] [address] [id number] [place] [address] Sep, [facility] [address] [id number] [place] [address] Sep, [facility] [address] [id number] [place] [address] Sep, [facility] [address] [id number] [place] [address] Sep, [facility] [address] [id number] [place] [address] Sep, [facility] [address] [id number] [place] [address] Aug, [facility] [address] [id number] [place] [address] Aug, [facility] [address] [id number] [place] [address] Aug, [facility] [address] [id number] [place] [address] Aug, [facility] [address] [id number] [facility] [place] [address] Aug, [facility] [address] [facility] [id number] [facility] [place] [address] Aug, [facility] [address] [facility] [id number] [place] [address] Aug, [facility] [address] [facility] [id number] [place] [address] Aug, [facility] [address] [facility] [id number] [place] [address] Aug, [facility] [address] [facility] [id number] [facility] [place] [address] Aug, [facility] [address] [id number] [place] [address] Aug, [address] [facility] [address] [place] [id number] Aug, [facility] [address] [facility] [id number] [place] [address] Aug, [facility] [address] [id number] [place] [address] Aug, [facility] [address] [id number] [place] [address] Aug, [facility] [address] [id number] [place] [address] Aug, [facility] [address] [id number] [place] [address] Aug, [facility] [address] [id number] [place] [address] Aug, [facility] [address] [facility] [id number] [place] [address] Aug, [facility] [address] [id number] [place] [address] Aug, [facility] [address] [id number] [place] [address] 08 Aug, 2014 [facility] [address] [id number] [place] [address] Aug, [facility] [address] [id number] [place] [address] Aug, [facility] [address] [id number] [place] [address] Aug, [facility] [address] [id number] [place] [address] Aug, [facility] [address] [id number] [place] [address] Aug, [facility] [address] [id number] [place] [address] Aug, [facility] [address] [id number] [place] [address] Aug, [facility] [address] [id number] [place] [address] Aug, [facility] [address] [id number] [place] [address] Aug, [facility] [address] [id number] [place] [address] Jul, [facility] [address] [id number] [place] [address] Jul, [facility] [address] [id number] [place] [address] Jul, [facility] [address] [id number] [place] [address] Jul, [facility] [address] [id number] [place] [address] Jul, [facility] [address] [id number] [place] [address] Jul, [facility] [address] [id number] [place] [address] Jul, [facility] [address] [id number] [place] [address] Jul, [facility] [address] [id number] [place] [address] Jul, [facility] [address] [id number] [place] [address] Jul, [facility] [address] [id number] [place] [address] Jun, [facility] [address] [id number] [place] [address] Jun, [facility] [address] [id number] [place] [address] Jun, [facility] [address] [id number] [place] [address] Jun, [facility] [address] [facility] [id number] [place] [address] Jun, [facility] [place] [facility] [id number] [place] [address] Jun, [facility] [place] [facility] [id number] [place] [address] Jun, [facility] [place] [facility] [id number] [place] [address] Jun, [facility] [place] [facility] [id number] [place] [address] Jun, [facility] [place] [facility] [id number] [place] [address] Jun, [facility] [place] [facility] [id number] [place] [address] 29 May, 2014 [facility] [place] [facility] [id number] [place] [address] 29 May, 2014 [facility] [place] [facility] [id number] [place] [address] May, [facility] [place] [facility] [id number] [place] [address] May, [facility] [place] [facility] [address] [id number] [place] [address] 17 May, 2013 [facility] [place] [facility] [address] [id number] [facility] [place] [address] 17 May, 2013 [facility] [place] [facility] [id number] [place] [address] 15 May, 2013 [facility] [place] [facility] [address] [id number] [facility] [place] [address] 15 May, 2013 [facility] [place] [facility] [address] [facility] [id number] [place] [address] 15 May, 2013 [facility] [place] [facility] [address] [id number] [place] [address] 15 May, 2013 [facility] [place] [facility] [id number] [place] [address] 10 May, 2013 [facility] [place] [facility] [id number] [place] [address] 10 May, 2013 [facility] [place] [facility] [id number] [place] [address] 09 May, 2013 [facility] [place] [facility] [id number] [place] [address] 09 May, 2013 [facility] [place] [facility] [id number] [place] [address] 04 May, 2013 [facility] [place] [facility] [id number] [place] [address] May, 2013 [facility] [place] [facility] [id number] [place] [address] Apr, [facility] [place] [facility] [address] [id number] [place] [address] Apr, [facility] [place] [facility] [id number] [place] [address] Apr, [facility] [place] [facility] [id number] [place] [address] Apr, [facility] [place] [facility] [address] [id number] [place] [address] Apr, [facility] [place] [facility] [address] [id number] [place] [address] Apr, [facility] [place] [facility] [address] [facility] [id number] [facility] [place] [address] Apr, [facility] [place] [facility] [address] [facility] [id number] [facility] [place] [address] Apr, [facility] [place] [facility] [address] [facility] [id number] [place] [address] Apr, [facility] [place] [facility] [address] [facility] [id number] [place] [address] Apr, [facility] [place] [facility] [address] [facility] [id number] [facility] [place] [address] Apr, [facility] [place] [facility] [address] [id number] [facility] [place] [address] Apr, [facility] [place] [facility] [address] [id number] [facility] [place] [address] Apr, [facility] [place] [facility] [address] [facility] [id number] [facility] [place] [address] Apr, [facility] [place] [facility] [address] [id number] [facility] [place] [address] Apr, [facility] [place] [facility] [address] [id number] [place] [address] Mar, [facility] [place] [facility] [address] [id number] [facility] [place] [address] Mar, [facility] [place] [facility] [address] [facility] [id number] [facility] [place] [address] Mar, [facility] [place] [facility] [address] [id number] [facility] [place] [address] Mar, [facility] [place] [facility] [address] [facility] [id number] [facility] [place] [address] Mar, [facility] [place] [facility] [address] [id number] [facility] [place] [address] Mar, [facility] [place] [facility] [address] [facility] [id number] [place] [address] Mar, 2013 [facility] [place] [facility] [address] [facility] [id number] [place] [address] Mar, 2013 [facility] [place] [facility] [address] [id number] [place] [address] Mar, 2013 [facility] [place] [facility] [address] [id number] [place] [address] Mar, 2013 [facility] [place] [facility] [address] [facility] [id number] [place] [address] Mar, 2013 [facility] [place] [facility] [address] [id number] [place] [address] Mar, 2013 [facility] [place] [facility] [address] [id number] [place] [address] Mar, 2013 [facility] [place] [facility] [address] [id number] [place] [address] Mar, 2013 [facility] [place] [facility] [address] [id number] [place] [address] Mar, 2013 [facility] [place] [facility] [address] [id number] [place] [address] Mar, 2013 [facility] [place] [facility] [address] [id number] [place] [address] Mar, 2013 [facility] [place] [facility] [address] [id number] [place] [address] Mar, 2013 [facility] [place] [facility] [address] [id number] [place] [address] Feb, [facility] [place] [facility] [address] [facility] [id number] [place] [address] Feb, [facility] [place] [facility] [address] [id number] [place] [address] Feb, [facility] [place] [facility] [address] [id number] [place] [address] Feb, [facility] [place] [facility] [address] [id number] [place] [address] Feb, [facility] [place] [facility] [address] [facility] [id number] [place] [address] Feb, [facility] [place] [facility] [address] [facility] [id number] [facility] [place] [address] Feb, [facility] [place] [facility] [address] [facility] [id number] [place] [address] Feb, [facility] [place] [facility] [address] [id number] [facility] [place] [address] Feb, [facility] [place] [facility] [address] [facility] [id number] [facility] [place] [address] Feb, [facility] [place] [facility] [address] [id number] [place] [address] Feb, [facility] [place] [facility] [address] [id number] [place] [address] Feb, [facility] [place] [facility] [address] [id number] [place] [address] Feb, [facility] [place] [facility] [address] [id number] [place] [address] Feb, [facility] [place] [facility] [address] [id number] [place] [address] January, [facility] [place] [facility] [address] [id number] [place] [address] January, [facility] [place] [facility] [address] [id number] [place] [address] January, [facility] [place] [facility] [address] [facility] [id number] [place] [address] January, [facility] [place] [facility] [address] [id number] [place] [address] January, [facility] [place] [facility] [address] [id number] [place] [address] January, [facility] [place] [facility] [address] [id number] [place] [address] January, [facility] [place] [facility] [address] [id number] [facility] [place] [address] January, [facility] [place] [facility] [address] [id number] [facility] [place] [address] January, [facility] [place] [facility] [address] [facility] [id number] [place] [address] January, [facility] [place] [facility] [address] [id number] [place] [address] January, [facility] [place] [facility] [address] [id number] [place] [address] January, [facility] [place] [facility] [address] [facility] [id number] [facility] [place] [address] January, [facility] [place] [facility] [address] [id number] [place] [address] January, [facility] [place] [facility] [address] [id number] [place] [address] Dec, [facility] [place] [facility] [address] [id number] [place] [address] Dec, [facility] [place] [facility] [address] [id number] [facility] [place] [address] Dec, [facility] [place] [facility] [address] [id number] [place] [address] Dec, [facility] [place] [facility] [address] [id number] [place] [address] Dec, [facility] [place] [facility] [address] [id number] [facility] [place] [address] Dec, [facility] [place] [facility] [address] [facility] [id number] [place] [address] Dec, [facility] [place] [facility] [address] [id number] [place] [address] Dec, [facility] [place] [facility] [address] [id number] [place] [address] Dec, [facility] [place] [facility] [address] [id number] [place] [address] Dec, [facility] [place] [facility] [address] [facility] [id number] [place] [address] Nov, [facility] [place] [facility] [address] [id number] [place] [address] Nov, [facility] [place] [facility] [address] [id number] [place] [address] Nov, [facility] [place] [facility] [address] [id number] [place] [address] Nov, [facility] [place] [facility] [address] [id number] [place] [address] Nov, [facility] [place] [facility] [address] [id number] [place] [address] Nov, [facility] [place] [facility] [address] [id number] [place] [address] Nov, [facility] [place] [facility] [address] [id number] [place] [address] Nov, [facility] [place] [facility] [address] [id number] [place] [address] Nov, [facility] [place] [facility] [address] [id number] [place] [address] Nov, [facility] [place] [facility] [address] [id number] [place] [address] Oct, [facility] [place] [facility] [address] [id number] [place] [address] Oct, [facility] [place] [facility] [address] [id number] [place] [address] Oct, [facility] [place] [facility] [address] [facility] [id number] [place] [address] Oct, [facility] [place] [facility] [address] [id number] [place] [address] Oct, [facility] [place] [facility] [address] [id number] [place] [address] Oct, [facility] [place] [facility] [address] [id number] [place] [address] 14 Oct, 2013 [facility] [place] [facility] [address] [id number] [place] [address] Oct, [facility] [place] [facility] [address] [id number] [place] [address] Oct, [facility] [place] [facility] [address] [id number] [place] [address] Oct, [facility] [place] [facility] [address] [id number] [place] [address] Oct, [facility] [place] [facility] [address] [id number] [place] [address] Oct, [facility] [place] [facility] [address] [id number] [place] [address] Oct, [facility] [place] [facility] [address] [id number] [place] [address] Oct, [facility] [place] [facility] [address] [id number] [place] [address] Sep, [facility] [place] [facility] [address] [id number] [place] [address] Sep, [facility] [place] [facility] [address] [id number] [place] [address] Sep, [facility] [place] [facility] [address] [id number] [place] [address] Sep, [facility] [place] [facility] [address] [id number] [place] [address] Sep, [facility] [place] [facility] [address] [id number] [place] [address] Sep, [facility] [place] [facility] [address] [id number] [place] [address] Sep, [facility] [place] [facility] [address] [id number] [place] [address] Sep, [facility] [place] [facility] [address] [id number] [place] [address] Sep, [facility] [place] [facility] [address] [id number] [place] [address] Sep, [facility] [place] [facility] [address] [id number] [place] [address] Aug, [facility] [place] [facility] [address] [id number] [place] [address] Aug, [facility] [place] [facility] [address] [id number] [place] [address] Jul, [facility] [place] [facility] [address] [id number] [place] [address] Jul, [facility] [place] [facility] [address] [id number] [place] [address] Jul, [facility] [place] [facility] [address] [id number] [place] [address] Jul, [facility] [place] [facility] [address] [id number] [place] [address] Jul, [facility] [place] [facility] [address] [id number] [place] [address] Jul, [facility] [place] [facility] [address] [id number] [place] [address] Jul, [facility] [place] [facility] [address] [id number] [place] [address] Jul, [facility] [place] [facility] [address] [id number] [place] [address] Jul, [facility] [place] [facility] [address] [id number] [place] [address] Jul, [facility] [place] [facility] [address] [id number] [place] [address] Jul, [facility] [place] [facility] [address] [id number] [place] [address] Jul, [facility] [place] [facility] [address] [id number] [place] [address] Jul, [facility] [place] [facility] [address] [id number] [place] [address] Jul, 2012 [facility] [place] [facility] [address] [id number] [place] [address] Jul, 2012 [facility] [place] [facility] [address] [id number] [place] [address] Jul, 2012 [facility] [place] [facility] [address] [id number] [place] [address] Jul, 2012 [facility] [place] [facility] [address] [id number] [place] [address] Jul, 2012 [facility] [place] [facility] [address] [id number] [place] [address] Jul, 2012 [facility] [place] [facility] [address] [id number] [place] [address] Jun, 2012 [facility] [place] [facility] [address] [id number] [place] [address] Jun, 2012 [facility] [place] [facility] [address] [id number] [place] [address] Jun, 2012 [facility] [place] [facility] [address] [id number] [place] [address] Jun, 2012 [facility] [place] [facility] [address] [id number] [place] [address] Jun, 2012 [facility] [place] [facility] [address] [id number] [place] [address] Jun, 2012 [facility] [place] [facility] [address] [id number] [place] [address] Jun, 2012 [facility] [place] [facility] [address] [id number] [place] [address] Jun, 2012 [facility] [place] [facility] [address] [id number] [place] [address] Jun, 2012 [facility] [place] [facility] [address] [id number] [place] [address] Jun, 2012 [facility] [place] [facility] [address] [id number] [place] [address] Jun, 2012 [facility] [place] [facility] [address] [id number] [place] [address] 26 May, 2012 [facility] [place] [facility] [address] [id number] [place] [address] 25 May, 2012 [facility] [place] [facility] [address] [id number] [place] [address] 19 May, 2012 [facility] [place] [facility] [address] [id number] [place] [address] 17 May, 2012 [facility] [place] [facility] [address] [id number] [place] [address] 11 May, 2012 [facility] [place] [facility] [address] [id number] [place] [address] 10 May, 2012 [facility] [place] [facility] [address] [id number] [place] [address] May, [facility] [place] [facility] [address] [id number] [place] [address] 05 May, 2013 [facility] [place] [facility] [address] [id number] [place] [address] Apr, [facility] [place] [facility] [address] [id number] [place] [address] Apr, [facility] [place] [facility] [address] [id number] [place] [address] Apr, [facility] [place] [facility] [address] [id number] [place] [address] Apr, [facility] [place] [facility] [address] [id number] [place] [address] Apr, [facility] [place] [facility] [address] [id number] [place] [address] Mar, [facility] [place] [facility] [address] [id number] [place] [address] Mar, [facility] [place] [facility] [address] [id number] [place] [address] Mar, [facility] [place] [facility] [address] [id number] [place] [address] Mar, [facility] [place] [facility] [address] [id number] [place] [address] Mar, [facility] [place] [facility] [address] [id number] [place] [address] Mar, [facility] [place] [facility] [address] [id number] [place] [address] Mar, [facility] [place] [facility] [address] [id number] [place] [address] Mar, [facility] [place] [facility] [address] [id number] [place] [address] Feb, [facility] [place] [facility] [address] [id number] [place] [address] Feb, [facility] [place] [facility] [address] [id number] [place] [address] January, [facility] [place] [facility] [address] [id number] [place] [address] January, [facility] [place] [facility] [address] [id number] [place] [address] Dec, [facility] [place] [facility] [address] [id number] [place] [address] Dec, [facility] [place] [facility] [address] [id number] [place] [address] Nov, [facility] [place] [facility] [address] [id number] [place] [address] Nov, [facility] [place] [facility] [address] [id number] [place] [address] Nov, [facility] [place] [facility] [address] [id number] [place] [address] Nov, [facility] [place] [facility] [address] [id number] [place] [address] Oct, [facility] [place] [facility] [address] [id number] [place] [address] Oct, [facility] [place] [facility] [address] [id number] [place] [address] Oct, [facility] [address] [id number] [place] [address] Oct, [facility] [place] [facility] [address] [id number] [place] [address] 16 Oct, 2012 [facility] [place] [facility] [address] [id number] [place] [address] 14 Oct, 2012 [facility] [place] [facility] [address] [id number] [place] [address] 08 Oct, 2012 [facility] [place] [facility] [address] [id number] [place] [address] Oct, [facility] [place] [facility] [address] [id number] [place] [address] Oct, [facility] [place] [facility] [address] [id number] [place] [address] Sep, [facility] [place] [facility] [address] [id number] [place] [address] Sep, [facility] [place] [facility] [address] [id number] [place] [address] Sep, [facility] [place] [facility] [address] [id number] [place] [address] Sep, [facility] [place] [facility] [address] [id number] [place] [address] Sep, [facility] [place] [facility] [address] [id number] [place] [address] Sep, [facility] [place] [facility] [address] [id number] [place] [address] Sep, [facility] [place] [facility] [id number] [place] [address] Sep, [facility] [place] [facility] [address] [id number] [place] [address] Aug, [facility] [place] [facility] [address] [id number] [place] [address] Aug, [facility] [place] [facility] [address] [id number] [place] [address] Aug, [facility] [place] [facility] [address] [id number] [place] [address] Aug, [facility] [place] [facility] [address] [id number] [place] [address] Aug, [facility] [place] [facility] [address] [id number] [place] [address] Aug, [facility] [place] [facility] [address] [id number] [place] [address] Aug, [facility] [place] [facility] [address] [id number] [place] [address] Aug, [facility] [place] [facility] [address] [id number] [place] [address] Jul, [facility] [place] [facility] [address] [id number] [place] [address] Jul, [facility] [place] [facility] [address] [id number] [place] [address] Jul, [facility] [place] [facility] [address] [id number] [place] [address] Jul, [facility] [place] [facility] [address] [id number] [place] [address] Jul, [facility] [place] [facility] [address] [id number] [place] [address] Jul, [facility] [place] [facility] [address] [id number] [place] [address] Jun, [facility] [place] [facility] [address] [id number] [place] [address] Jun, [facility] [place] [facility] [id number] [place] [address] Jun, [facility] [place] [facility] [address] [id number] [place] [address] Jun, [facility] [place] [facility] [address] [id number] [place] [address] Jun, [facility] [address] [facility] [id number] [place] [address] Jun, [facility] [address] [facility] [id number] [place] [address] Jun, [facility] [address] [id number] [place] [address] Jun, [facility] [address] [id number] [place] [address] Jun, [facility] [address] [facility] [id number] [place] [address] May, [facility] [address] [id number] [place] [address] 24 May, 2012 [facility] [address] [id number] [place] [address] May, [facility] [address] [id number] [place] [address] Apr, [facility] [address] [id number] [place] [address] Apr, [facility] [address] [id number] [place] [address] Apr, [facility] [address] [id number] [place] [address] Apr, [facility] [address] [id number] [place] [address] Apr, [facility] [address] [id number] [place] [address] Apr, [facility] [address] [id number] [place] [address] Mar, [facility] [address] [id number] [place] [address] Mar, [facility] [address] [id number] [place] [address] Mar, [facility] [address] [id number] [place] [address] Mar, [facility] [address] [id number] [place] [address] Feb, [facility] [address] [id number] [place] [address] Feb, [facility] [address] [id number] [place] [address] Feb, [facility] [address] [id number] [place] [address] Feb, [facility] [address] [id number] [place] [address] Feb, [facility] [address] [id number] [place] [address] January, [facility] [address] [id number] [place] [address] January, [facility] [address] [id number] [place] [address] January, [facility] [address] [id number] [place] [address] January, [facility] [address] [id number] [place] [address] January, [facility] [address] [id number] [place] [address] January, [facility] [address] [id number] [place] [address] Dec, [facility] [address] [id number] [place] [address] Dec, [facility] [address] [id number] [place] [address] Dec, [facility] [address] [id number] [place] [address] Dec, [facility] [address] [id number] [place] [address] Dec, [facility] [address] [id number] [place] [address] 27 Nov, 2011 [facility] [address] [id number] [place] [address] 14 Nov, 2011 [facility] [address] [id number] [place] [address] 12 Nov, 2011 [facility] [address] [id number] [place] [address] 07 Nov, 2011 [facility] [address] [id number] [place] [address] 29 Oct, 2011 [facility] [address] [id number] [place] [address] 28 Oct, 2011 [facility] [address] [id number] [place] [address] 24 Oct, 2011 [facility] [id number] [place] [address] 13 Oct, 2011 [facility] [address] [id number] [place] [address] 08 Oct, 2011 [facility] [address] [id number] [place] [address] Sep, [facility] [address] [id number] [place] [address] 30 Sep, 2011 [facility] [address] [id number] [place] [address] Sep, [facility] [address] [id number] [place] [address] Sep, [facility] [address] [id number] [place] [address] Sep, [facility] [address] [id number] [place] [address] 05 Sep, 2011 [facility] [address] [id number] [place] [address] Aug, [facility] [address] [id number] [place] [address] Aug, [facility] [address] [facility] [id number] [place] [address] Aug, [facility] [address] [facility] [id number] [place] [address] Jul, [facility] [address] [id number] [place] [address] Jul, [facility] [address] [id number] [place] [address] Jul, [facility] [address] [facility] [id number] [facility] [place] [address] Jul, [facility] [address] [id number] [place] [address] Jun, [facility] [address] [id number] [place] [address] Jun, [facility] [address] [id number] [place] [address] Jun, [facility] [address] [id number] [place] [address] Jun, [facility] [address] [id number] [place] [address] Jun, [facility] [address] [id number] [place] [address] Jun, [facility] [address] [facility] [id number] [place] [address] Mar, [facility] [address] [facility] [id number] [place] [address] Dec, [facility] [address] [id number] [place] [address] Dec, [facility] [address] [id number] [place] [address] Nov, [facility] [address] [id number] [place] [address] 16 Nov, 2010 [facility] [address] [id number] [place] [address] 10 Sep, 2010 [facility] [address] [id number] [place] [address] 31 Aug, 2010 [facility] [address] [id number] [place] [address] 29 Aug, 2010 [facility] [address] [facility] [id number] [place] [address] 29 Aug, 2010 [facility] [address] [id number] [place] [address] 29 Aug, 2010 [facility] [address] [id number] [place] [address] 27 Aug, 2010 [facility] [address] [facility] [id number] [place] [address] 14 Aug, 2010 [facility] [address] [facility] [id number] [place] [address] 08 Aug, 2010 [facility] [address] [facility] [id number] [place] [address] 08 Aug, 2010 [facility] [address] [id number] [place] [address] 07 Aug, 2010 [facility] [address] [facility] [id number] [place] [address] 06 Aug, 2010 [facility] [address] [id number] [place] [address] 06 Aug, 2010 [facility] [address] [id number] [place] [address] Aug, [facility] [address] [id number] [place] [address] 30 Jul, 2010 [facility] [address] [id number] [place] [address] 30 Jul, 2010 [facility] [address] [id number] [place] [address] 30 Jul, 2010 [facility] [address] [id number] [place] [address] Jul, [facility] [address] [id number] [place] [address] Jul, [facility] [address] [id number] [place] [address] Jul, [facility] [address] [facility] [id number] [place] [address] 24 Jun, 2010 [facility] [address] [id number] [place] [address] Jun, [facility] [address] [id number] [place] [address] Jun, [facility] [address] [id number] [place] [address] Jun, [facility] [address] [id number] [place] [address] Apr, [facility] [address] [id number] [place] [address] Mar, [facility] [address] [id number] [place] [address] Feb, [facility] [address] [id number] [place] [address] January, [facility] [address] [id number] [place] [address] 15 Dec, 2009 [facility] [address] [id number] [place] [address] Nov, [facility] [address] [id number] [place] [address] Aug, [facility] [address] [id number] [place] [address] Aug, [facility] [address] [facility] [id number] [place] [address] 07 Aug, 2009 [facility] [address] [id number] [place] [address] Jul, [facility] [address] [id number] [place] [address] Jul, [facility] [address] [facility] [id number] [place] [address] Jul, [facility] [address] [id number] [place] [address] Jun, [facility] [address] [id number] [place] [address] Jun, [facility] [id number] [place] [address] Jun, [facility] [address] [facility] [id number] [place] [address] Jun, [facility] [id number] [place] [address] Jun, [facility] [address] [facility] [id number] [place] [address] Jun, [facility] [id number] [place] [address] Apr, [facility] [address] [facility] [id number] [place] [address] Apr, [facility] [id number] [place] [address] Feb, [facility] [address] [facility] [id number] [place] [address] January, [facility] [address] [facility] [id number] [place] [address] Dec, IMMUNIZATIONS No Known Immunizations SOCIAL HISTORY Never Assessed REASON FOR VISIT PLAN OF CARE VITAL SIGNS Weight 343.25 lbs 2014-02-18 Temperature 98.6 degrees Fahrenheit 2014-02-18 Heart Rate 80 bpm 2014-02-18 Respiratory Rate 32 2014-02-18 Blood pressure systolic 189 mmHg 2014-02-18 Blood pressure diastolic 98 mmHg 2014-02-18 MEDICATIONS Unknown Medications RESULTS No Results PROCEDURES [...] History [facility] inpatient mental health ea rly 1999's Hospitalization History hyperkalemia 10/2017 Hospitalization History fluid in lung
--- OUTSIDE RECORDS SUMMARY | 2020-03-01 16:56 | XMS REPORT ---
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 Name Role Phone Migration, Doctor Unavailable Unavailable PROBLEMS Type Condition ICD9-CM Code [id number] Code Onset Dates Condition S tatus SNOMED Code Problem DM neuro manif type II E11.49 Active 89043772 Problem Chronic pain G89.29 Active 3892551 1 Problem Diabetes E11.9 Active 84369127 Problem Reactive airway disease J45.909 Active 242001681060 Problem Leukocytosis D72.829 Active 7200575 06 Problem Insomnia, unspecified type G47.00 Act sharon 060254859 Problem Bipolar I disorder, most recent episode (or curr ent) mixed, moderate F31.62 Active 66537882 Problem Primary osteoarthritis of right knee M17.11 Active 213284874304426 Problem Cough R05 Active 39413439 Problem Pure hypercholesterolemia E78.00 Acti ve 923077282 Problem Dysuria R30.0 Active 35774516 Problem Benign prostatic hyperplasia with lower urinary tract symptoms, unspecified morphology N40.1 Active 83405 6007 Problem Eustachian tube dysfunction, unspecified laterality H69.80 Active 06611986 Problem Polyneuropathy associated with underlying disease G63 Active 510389461 Problem Diabetic polyneuropathy associated with type 2 d iabetes mellitus E11.42 Active 35612286 Problem Anemia of chronic illness D63.8 Acti ve 291833919 Problem Chronic lymphocytic leukemia C91.10 A ctive 19653563 Problem Bilateral primary osteoarthritis of knee M17.0 Active 434751731 Problem 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 Active 861054336 Problem Eye exam abnormal R93.8 Active 16 4860962 Problem Retinal edema H35.81 Active 156695 6 Problem Lymphocytosis D72.820 Active 015895 09 Problem Bipolar disorder, in partial remission, most rec ent episode depressed F31.75 Active 63717422 Problem Hypokalemia E87.6 Active 76231297 Problem Falling R29.6 Active 906547941 Problem Pressure ulcer of other site, stage 3 L89.893 Active 167194722 Problem Other iron deficiency anemia D50.8 A ctive 89363336 Problem Mild cognitive impairment G31.84 Acti ve 723637819 Problem Skin cancer C44.90 Active 58175497 7 Problem senior living (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 Z79.4 Active 835104189 Problem Morbid obesity E66.01 Active 82614 6002 Problem Mood disorder F39 Active 104993 05 Problem Anxiety F41.9 Active 41383256 Problem Essential hypertension I10 Active 75365830 Problem Bipolar disorder F31.9 Active 137 37864 Problem Chronic diastolic (congestive) heart failure I50.3 2 Active 843893862 Problem Psychophysiological insomnia F51.04 A ctive 012957836 Problem Type 2 diabetes mellitus with diabetic neuropathy, uns pecified E11.40 Active 06564585 ALLERGIES No Information ENCOUNTERS Encounter Location Date Diagnosis [place] [address] [address] Oct, [place] [address] [address] Oct, [place] [address] [address] Sep, [place] [address] [address] Sep, Mood disorder [address] [place] [address] [address] Sep, Bipolar disorder, in partial remission, most recent episode depressed F31.75 and Mild cognitive impairment G31.84 [place] [address] [address] Sep, Mood disorder F39 [place] [address] [address] Sep, [place] [address] [address] Sep, Mood disorder F39 [place] [address] [address] Sep, [place] [address] [place] [id number] [place] [address] Aug, Mood disorder F39 [facility] [address] [facility] [place] [address] Aug, [facility] [address] [id number] [place] [address] Aug, [facility] [address] [facility] [place] [address] Aug, [facility] [address] [id number] [place] [address] Aug, [facility] [address] [facility] [place] [address] Aug, [facility] [address] [place] [id number] [place] [address] Aug, [facility] [address] [id number] [place] [address] Aug, [facility] [address] [id number] [place] [address] Aug, Essential hypertension I10 [facility] [address] [place] [id number] [place] [address] Aug, Bipolar disorder, in partial remission, most recent episode depressed F31.75 and Mild cognitive impairment G31.84 [facility] [address] [place] [id number] [place] [address] Aug, Mood disorder F39 [facility] [address] [id number] [place] [address] Aug, [facility] [address] [id number] [place] [address] Aug, Bipolar disorder, in partial remission, most recent episode depressed F31.75 and Mild cognitive impairment G31.84 [facility] [address] [place] [id number] [place] [address] Jul, Bipolar disorder, in partial remission, most recent episode depressed F31.75 and Mild cognitive impairment G31.84 [facility] [address] [place] [id number] [place] [address] Jul, Psychophysiological insomnia F51.04 [facility] [address] [address] Jul, [facility] [address] [address] Jul, [facility] [address] [address] Jul, [facility] [address] [address] Jul, [facility] [address] [address] Jul, [facility] [address] [address] Jul, [facility] [address] [address] Jul, Bipolar disorder, in partial remission, most recent episode depressed F31.75 and Mild cognitive impairment G31.84 [facility] [address] [address] Jul, Chronic pain G89.29 ; Diabetes E11.9 ; E ssential hypertension I10 ; Ill feeling R68.89 ; Local infection of the skin and subcutaneous tissue, unspecified L08.9 and Other injury of unspecified body region, initial encounter T14.8XXA [facility] [address] [address] Jun, Bipolar disorder, in partial remission, most recent episode depressed F31.75 and Mild cognitive impairment G31.84 [facility] [address] [address] Jun, [facility] [address] [address] Jun, Bipolar disorder, in partial remission, most recent episode depressed F31.75 and Mild cognitive impairment G31.84 [facility] [address] [address] Jun, Psychophysiological insomnia F51.04 [facility] [address] [address] Jun, Psychophysiological insomnia F51.04 ; Ch ronic pain G89.29 ; Bipolar I disorder, most recent episode (or current) mixed, moderate F31.62 ; 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 ; Polyneuropathy associated with underlying disease G63 ; Type 2 diabetes mellitus with diabetic neuropathy, unspecified E11.40 ; senior living (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 Z79.4 and Hyperglycemia R73.9 [place] [address] [address] Jun, Bipolar disorder, in partial remission, most recent episode depressed F31.75 and Mild cognitive impairment G31.84 [place] [address] [address] Jun, [place] [address] [address] Jun, Bipolar disorder F31.9 [place] [address] [address] May, Bipolar disorder, in partial remission, most recent episode depressed F31.75 and Mild cognitive impairment G31.84 [place] [address] [address] May, [place] [address] [address] Apr, Chronic pain G89.29 and Bipolar disorder F31.9 [facility] [address] [address] Mar, Bipolar disorder F31.9 and Chronic pain G89.29 [facility] [address] [address] Feb, Bipolar disorder F31.9 [facility] [address] [address] Feb, Cellulitis of right upper extremity L03. 113 and Skin abrasion T14.8XXA [facility] [address] [address] Feb, Bipolar disorder, in partial remission, most recent episode depressed F31.75 and Mild cognitive impairment G31.84 [facility] [address] [address] Feb, Chronic pain G89.29 [facility] [address] [address] Feb, Bipolar disorder, in partial remission, most recent episode depressed F31.75 and Mild cognitive impairment G31.84 [place] [address] [address] January, Bipolar disorder, in partial remission, most recent episode depressed F31.75 and Mild cognitive impairment G31.84 [place] [address] [address] January, Chronic pain G89.29 and Bipolar disorder F31.9 [place] [address] [address] January, Bipolar disorder, in partial remission, most recent episode depressed F31.75 and Mild cognitive impairment G31.84 [place] [address] [address] Dec, [place] [address] [address] Dec, Chronic pain G89.29 and Bipolar disorder F31.9 [facility] [address] [address] Dec, Edema of both lower extremities R60.0 [place] [address] [address] Dec, Bipolar disorder F31.9 [facility] [address] [address] Dec, Bipolar disorder, in partial remission, most recent episode depressed F31.75 and Mild cognitive impairment G31.84 [place] [address] [address] Nov, [place] [address] [address] Nov, Chronic pain G89.29 [place] [address] [address] Nov, Bipolar disorder, in partial remission, most recent episode depressed F31.75 and Mild cognitive impairment G31.84 [place] [address] [address] Nov, Bipolar disorder F31.9 [place] [address] [address] 04 Nov, 2018 Encounter for Medicare annual [...] unspecified morphology N40.1 and Essential hypertension I10 [place] [address] [address] Oct, Chronic pain G89.29 [place] [address] [address] Oct, Diabetes E11.9 [place] [address] [address] Oct, Bipolar I disorder, most recent episode (or current) mixed, moderate F31.62 and Mild cognitive impairment G31.84 [place] [address] [address] Oct, Bipolar I disorder, most recent episode (or current) mixed, moderate F31.62 and Mild cognitive impairment G31.84 [place] [address] [address] Sep, Bipolar I disorder, most recent episode (or current) mixed, moderate F31.62 and Mild cognitive impairment G31.84 [place] [address] [address] Sep, [address] [address] Sep, Diabetes E11.9 ; Hypoxia R09.02 ; Hyperg lycemia R73.9 ; Therapeutic drug monitoring Z51.81 ; BMI 50.0-59.9, adult Z68.43 and Skin cancer C44.[address] [address] Sep, Chronic pain G89.[address] [address] Sep, Bipolar I disorder, most recent episode (or current) mixed, moderate F31.[address] [address] Sep, [address] [address] Sep, [place] [address] [address] Aug, Chronic pain G89.[address] [address] Aug, Bipolar I disorder, most recent episode (or current) mixed, moderate F31.[address] [address] Aug, Bipolar I disorder, most recent episode (or current) mixed, moderate F31.62 and Mild cognitive impairment G31.84 [place] [address] [address] Jul, [place] [id number] [place] [address] Jul, Chronic pain G89.29 [facility] [address] [address] Jul, Bipolar I disorder, most recent episode (or current) mixed, moderate F31.62 and Mild cognitive impairment G31.84 [facility] [address] [address] Jul, Bipolar I disorder, most recent episode (or current) mixed, moderate F31.62 and MCI (mild cognitive impairment) G31.84 [facility] [address] [address] Jul, [facility] [address] [address] Jul, [facility] [address] [address] Jul, Bipolar I disorder, most recent episode (or current) mixed, moderate F31.62 [facility] [address] [place] [id number] [place] [address] Jul, Chronic pain G89.29 [facility] [address] [address] Jun, Bipolar I disorder, most recent episode (or current) mixed, moderate F31.62 [facility] [address] [place] [id number] [place] [address] Jun, Pre-procedure lab exam Z01.812 [facility] [address] [place] [id number] [place] [address] Jun, [facility] [address] [facility] [place] [id number] Jun, [facility] [address] [place] [address] [place] [address] Jun, [facility] [address] [place] [id number] [place] [address] Jun, Forgetfulness R68.89 ; Pre-syncope R55 ; Localized edema R60.0 ; Other iron deficiency anemia D50.8 and BMI 50.0-59.9, adult Z68.43 [place] [address] [address] Jun, Chronic pain G89.29 [place] [address] [address] Jun, Chronic pain G89.29 [place] [address] [address] Jun, Bipolar I disorder, most recent episode (or current) mixed, moderate F31.62 [place] [address] [address] May, Chronic pain G89.29 [place] [address] [address] Apr, [place] [address] [address] Apr, Chronic pain G89.29 [place] [address] [address] Apr, Primary osteoarthritis of right knee M17 .11 [place] [address] [address] Mar, [place] [address] [address] Mar, BMI 50.0-59.9, adult Z68.43 and Bipolar disorder, in partial remission, most recent episode depressed F31.75 [place] [address] [address] Mar, Diabetes E11.9 ; Pure hypercholesterolem ia E78.00 ; Essential hypertension I10 ; Nausea with vomiting, unspecified R11.2 and Headache, unspecified headache type R51 [place] [address] [address] Mar, Bipolar I disorder, most recent episode (or current) mixed, moderate F31.62 [facility] [address] [address] Mar, Bipolar I disorder, most recent episode (or current) mixed, moderate F31.62 [facility] [address] [address] Mar, Chronic pain G89.29 [facility] [address] [address] Mar, Bipolar I disorder, most recent episode (or current) mixed, moderate F31.62 [facility] [address] [address] Feb, Bipolar I disorder, most recent episode (or current) mixed, moderate F31.62 [place] [address] [address] Feb, Chronic pain G89.29 [place] [address] [address] Feb, Decubitus ulcer of right foot, stage 3 L 89.893 and BMI 50.0-59.9, adult Z68.43 [place] [address] [address] Feb, Bipolar I disorder, most recent episode (or current) mixed, moderate F31.62 [place] [address] [address] Feb, [facility] [address] [address] January, [facility] [address] [address] January, Chronic pain G89.29 [facility] [address] [address] January, Bipolar I disorder, most recent episode (or current) mixed, moderate F31.62 [facility] [address] [address] January, Bipolar I disorder, most recent episode (or current) mixed, moderate F31.62 [place] [address] [address] Dec, Bipolar I disorder, most recent episode (or current) mixed, moderate F31.62 and BMI 50.0-59.9, adult Z68.43 [place] [address] [address] Dec, Bipolar I disorder, most recent episode (or current) mixed, moderate F31.62 [place] [address] [address] Dec, Chronic pain G89.29 [place] [address] [address] Dec, DM neuro manif type II E11.49 ; Right fl ank pain R10.9 ; [employer] 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 Z79.891 ; Encounter for medication monitoring Z51.81 and BMI 50.0-59.9, adult Z68.43 [place] [address] [address] Dec, Bipolar I disorder, most recent episode (or current) mixed, moderate F31.62 [place] [address] [address] Nov, Bipolar I disorder, most recent episode (or current) mixed, moderate F31.62 [place] [address] [address] Nov, Chronic pain G89.29 [place] [address] [address] Nov, Bipolar I disorder, most recent episode (or current) mixed, moderate F31.62 [place] [address] [address] Nov, Hypokalemia E87.6 [place] [address] [address] Nov, Bipolar I disorder, most recent episode (or current) mixed, moderate F31.62 [place] [address] [address] Oct, Chronic pain G89.29 [facility] [address] [address] Oct, BMI 50.0-59.9, adult Z68.43 and Bipolar I disorder, most recent episode (or current) mixed, moderate F31.62 [place] [address] [address] Oct, Bipolar I disorder, most recent episode (or current) mixed, moderate F31.62 [place] [address] [address] Oct, [place] [address] [address] Oct, Hypokalemia E87.6 [place] [address] [address] Oct, DM neuro manif type II E11.49 [place] [address] [address] Oct, Bipolar I disorder, most recent episode (or current) mixed, moderate F31.62 [place] [address] [address] Oct, Bipolar I disorder, most recent episode (or current) mixed, moderate F31.62 [place] [address] [address] 14 Oct, 2017 Hyperkalemia E87.5 ; Falling R29.6 ; BMI 50.0-59.9, adult Z68.43 and Acute left ankle pain M25.572 [place] [address] [address] Oct, DM neuro manif type II E11.49 [place] [address] [address] Oct, [place] [address] [address] Sep, Chronic pain G89.29 [place] [address] [address] Sep, [place] [address] [address] Sep, Bilateral primary osteoarthritis of knee M17.0 [place] [address] [address] Sep, Generalized edema R60.[address] [address] Sep, Bipolar I disorder, most recent episode (or current) mixed, moderate F31.[address] [address] Sep, Hypoxia R09.02 ; Other hypervolemia E87. 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 ; Anemia of chronic illness D63.8 and BMI 50.0-59.9, adult Z68.[address] [address] Sep, [address] [address] Sep, Bipolar I disorder, most recent episode (or current) mixed, moderate F31.62 [place] [address] [address] Aug, Chronic pain G89.29 [place] [address] [address] Aug, Generalized edema R60.1 [place] [address] [address] Aug, [address] [place] [address] Aug, [facility] [address] [place] [address] Aug, Bipolar I disorder, most recent episode (or current) mixed, moderate F31.62 [facility] [address] [address] Aug, Bipolar I disorder, most recent episode (or current) mixed, moderate F31.62 [place] [address] [address] Aug, Chronic pain G89.29 [place] [address] [place] [address] Jul, Bipolar I disorder, most recent episode (or current) mixed, moderate F31.62 [place] [address] [address] Jul, Bipolar I disorder, most recent episode (or current) mixed, moderate F31.62 and BMI 60.0-69.9, adult Z68.44 [place] [address] [address] Jul, Bipolar I disorder, most recent episode (or current) mixed, moderate F31.62 [place] [address] [address] Jul, Chronic pain G89.29 [place] [address] [address] Jul, Bipolar I disorder, most recent episode (or current) mixed, moderate F31.62 [place] [address] [address] Jun, Polyneuropathy associated with underlyin g disease G63 and Diabetes E11.9 [place] [address] [address] 16 Jun, 2017 Bipolar I disorder, most recent episode (or current) mixed, moderate F31.62 [place] [address] [address] Jun, Chronic pain G89.29 [facility] [address] [place] [address] 27 May, 2017 Bipolar I disorder, most recent episode (or current) mixed, moderate F31.62 [facility] [address] [address] May, Bipolar I disorder, most recent episode (or current) mixed, moderate F31.62 [facility] [address] [address] 20 May, 2017 Diabetic polyneuropathy associated with type 2 diabetes mellitus E11.42 [place] [address] [address] 18 May, 2017 Bipolar I disorder, most recent episode (or current) mixed, moderate F31.62 [place] [address] [address] 13 May, 2017 Bipolar I disorder, most recent episode (or current) mixed, moderate F31.62 [place] [address] [address] May, Chronic pain G89.29 [facility] [address] [place] [address] Apr, Bipolar I disorder, most recent episode (or current) mixed, moderate F31.62 [place] [address] [address] Apr, [place] [address] [address] Apr, Chronic pain G89.29 and DM neuro manif t ype II E11.49 [place] [address] [address] Apr, [facility] [address] [address] Apr, Bipolar I disorder, most recent episode (or current) mixed, moderate F31.62 [facility] [address] [address] Apr, Chronic pain G89.29 [facility] [address] [address] Apr, Iliotibial band syndrome, left M76.32 [facility] [address] [address] Apr, Bipolar I disorder, most recent episode (or current) mixed, moderate F31.62 [place] [address] [address] Mar, Bipolar I disorder, most recent episode (or current) mixed, moderate F31.62 [place] [address] [address] Mar, Bipolar I disorder, most recent episode (or current) mixed, moderate F31.62 [place] [address] [address] Mar, [place] [address] [address] Mar, Bipolar I disorder, most recent episode (or current) mixed, moderate F31.62 [place] [address] [address] Mar, Chronic pain G89.29 [place] [address] [address] Mar, Bipolar I disorder, most recent episode (or current) mixed, moderate F31.62 [place] [address] [address] Mar, Bipolar I disorder, most recent episode (or current) mixed, moderate F31.62 [place] [address] [address] Mar, Acute pain of left knee M25.562 ; Left h ip pain M25.552 ; Generalized edema R60.1 and Tongue swelling R22.0 [place] [address] [address] Mar, [facility] [address] [address] Feb, Chronic pain G89.29 [facility] [address] [address] Feb, Diabetes E11.9 [facility] [address] [address] January, Chronic pain G89.29 [facility] [address] [address] January, [place] [address] [address] January, Bipolar I disorder, most recent episode (or current) mixed, moderate F31.62 [place] [address] [address] Dec, Bipolar I disorder, most recent episode (or current) mixed, moderate F31.62 [place] [address] [address] Dec, Chronic pain G89.29 [facility] [address] [address] Dec, Bipolar I disorder, most recent episode (or current) mixed, moderate F31.62 [place] [address] [address] Dec, Diabetes E11.9 ; Essential hypertension I10 ; Chronic pain G89.29 and Morbid obesity E66.01 [facility] [address] [address] Dec, [place] [address] [address] Dec, Bipolar I disorder, most recent episode (or current) mixed, moderate F31.62 [place] [address] [address] Dec, Bipolar I disorder, most recent episode (or current) mixed, moderate F31.62 [facility] [address] [address] Nov, Chronic pain G89.29 [facility] [address] [address] Nov, Bipolar I disorder, most recent episode (or current) mixed, moderate F31.62 [facility] [address] [address] Nov, [facility] [address] [address] Nov, Bipolar I disorder, most recent episode (or current) mixed, moderate F31.62 [facility] [address] [address] Nov, Bipolar I disorder, most recent episode (or current) mixed, moderate F31.62 [facility] [address] [address] Nov, [facility] [address] [address] Nov, [facility] [address] [address] Nov, [facility] [address] [address] Oct, Chronic pain G89.29 [facility] [address] [address] Oct, Bipolar I disorder, most recent episode (or current) mixed, moderate F31.62 [facility] [address] [address] Oct, [facility] [address] [address] Oct, Chronic pain G89.29 ; Diabetes E11.9 ; A nxiety F41.9 and 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 [facility] [address] [address] Oct, [facility] [address] [address] Oct, Diabetes E11.9 [facility] [address] [address] Oct, Bipolar I disorder, most recent episode (or current) mixed, moderate F31.62 [facility] [address] [address] Sep, Chronic pain G89.29 [facility] [address] [address] Sep, Chronic pain G89.29 [facility] [address] [address] Aug, Chronic pain G89.29 [facility] [address] [address] Jul, [facility] [address] [address] Jul, Diabetes E11.9 [facility] [address] [address] Jul, Chronic pain G89.29 [facility] [address] [address] Jul, Bipolar I disorder, most recent episode (or current) mixed, moderate F31.62 [facility] [address] [address] Jun, Bipolar I disorder, most recent episode (or current) mixed, moderate F31.62 [facility] [address] [address] Jun, [facility] [address] [address] Jun, Bipolar I disorder, most recent episode (or current) mixed, moderate F31.62 [place] [address] [address] 30 May, 2016 Insomnia, unspecified type G47.00 [place] [address] [address] May, Bipolar I disorder, most recent episode (or current) mixed, moderate F31.62 [place] [address] [address] 14 May, 2016 [place] [address] [address] May, Bipolar I disorder, most recent episode (or current) mixed, moderate F31.62 [place] [address] [address] May, Diabetes E11.9 and Essential hypertensio n I10 [place] [address] [address] Apr, Chronic pain G89.29 [place] [address] [address] Apr, Bipolar I disorder, most recent episode (or current) mixed, moderate F31.62 [place] [address] [address] Apr, [place] [address] [address] Apr, [place] [address] [address] Mar, Chronic pain G89.29 ; Headache, unspecif ied headache type R51 ; Neuropathy G62.9 ; Pain of right hip joint M25.551 and Essential hypertension I10 [place] [address] [address] Mar, Chronic pain G89.29 [place] [address] [address] Mar, Bipolar I disorder, most recent episode (or current) mixed, moderate F31.62 [place] [address] [address] Feb, Bipolar I disorder, most recent episode (or current) mixed, moderate F31.62 and Insomnia, unspecified type G47.00 [place] [address] [address] Feb, Chronic pain G89.29 [place] [address] [place] [address] Feb, Bipolar I disorder, most recent episode (or current) mixed, moderate F31.62 [place] [address] [place] [address] January, Bipolar I disorder, most recent episode (or current) mixed, moderate F31.62 [place] [address] [address] January, Chronic pain G89.29 [place] [address] [address] January, Chronic pain G89.29 and Essential hypert ension I10 [place] [address] [address] January, Bipolar I disorder, most recent episode (or current) mixed, moderate F31.62 [place] [address] [address] Dec, [place] [address] [address] Dec, [place] [address] [address] Dec, [address] [address] Dec, [place] [address] [address] Nov, Reactive airway disease J45.909 [place] [address] Nov, [place] [address] [address] Nov, [place] [address] [address] Nov, [place] [address] [address] Nov, [place] [address] [address] Nov, Onychomycosis B35.1 ; Hammertoe M20.40 ; [place] or callus L84 and DM neuro manif type II E11.[address] [address] Nov, Chronic pain G89.29 ; Leukocytosis D72.8 29 and Diabetes E11.[address] [address] Nov, [place] [address] [address] Oct, Bronchitis J40 [place] [address] [address] Oct, [place] [address] [address] Oct, [place] [address] [address] Oct, Mastoiditis, unspecified laterality H70. 90 and Type 2 diabetes mellitus with complication E11.8 [place] [address] [address] Sep, [address] [address] Sep, Dysuria R30.0 ; Cough R05 ; Benign prost atic hyperplasia with lower urinary tract symptoms, unspecified morphology N40.1 ; Hypokalemia E87.6 and Eustachian tube dysfunction, unspecified laterality H69.80 [place] [address] [place] [id number] [place] [address] Sep, Moderate mixed bipolar I disorder F31.62 [facility] [address] [address] Sep, Hypokalemia E87.6 [facility] [address] [address] Sep, [facility] [address] [address] Sep, Upper respiratory tract infection, unspe cified type J06.9 [facility] [address] [address] Aug, [facility] [address] [address] Aug, Dysuria R30.0 [facility] [address] [address] Aug, [facility] [address] [address] Jul, [facility] [address] [address] Jul, [facility] [address] [address] Jul, [facility] [address] [address] Jul, [facility] [address] [address] Jun, [facility] [address] [address] Jun, [facility] [address] [address] Jun, [facility] [address] [address] May, [facility] [address] [address] May, Bipolar I disorder, most recent episode (or current) mixed, moderate 296.62 [facility] [address] [address] May, [facility] [address] [address] May, Bipolar I disorder, most recent episode (or current) mixed, moderate 296.62 and Major depressive disorder, recurrent episode, severe, specified as with psychotic behavior 296.34 [facility] [address] [address] May, Bipolar I disorder, most recent episode (or current) mixed, moderate 296.62 [facility] [address] [address] May, [facility] [address] [address] Apr, [facility] [address] [address] Apr, [facility] [address] [address] Apr, Unspecified disorder of kidney and urete r 593.9 and Diabetes mellitus type 2, uncontrolled 250.02 [facility] [address] [address] Apr, [facility] [address] [address] Apr, [facility] [address] [address] Apr, [facility] [address] [address] Apr, [facility] [address] [address] Apr, Diabetes mellitus type II, uncontrolled 250.02 [facility] [address] [address] Apr, [facility] [address] [address] Mar, [facility] [address] [address] Mar, [facility] [address] [address] Mar, [facility] [address] [address] Mar, Major depressive disorder, recurrent epi sode, severe, specified as with psychotic behavior 296.34 and Bipolar I disorder, most recent episode (or current) mixed, moderate 296.62 [facility] [address] [address] Mar, Diabetes 250.00 ; Anuria 788.5 ; Nausea and vomiting 787.01 and Diarrhea 787.91 [facility] [address] [address] Mar, Diabetes 250.00 [facility] [address] [address] Mar, [facility] [address] [address] Mar, Diabetes 250.00 [facility] [address] [address] Mar, [facility] [address] [address] Mar, [facility] [address] [address] Mar, [facility] [address] [address] Mar, [facility] [address] [address] Mar, Bipolar I disorder, most recent episode (or current) mixed, moderate 296.62 and Major depressive disorder, recurrent episode, severe, specified as with psychotic behavior 296.34 [place] [address] [address] Mar, Magnesium deficiency 275.2 ; Hypokalemia 276.8 ; Nausea & vomiting 787.01 and Diabetes mellitus type 2, uncontrolled 250.02 [facility] [address] [address] Feb, [place] [address] [address] Feb, Bipolar I disorder, most recent episode (or current) mixed, moderate 296.62 [place] [address] [address] Feb, Nausea and vomiting 787.01 ; Left elbow pain 719.42 ; Anuria 788.5 and Diabetes 250.00 [place] [address] [address] Feb, [address] [address] Feb, Hypopotassemia 276.8 and Hypokalemia [address] [address] Feb, Hypopotassemia 276.8 and Hypokalemia 276 .8 [place] [address] [address] Feb, Seborrheic keratoses 702.[address] [address] Feb, Hypopotassemia 276.8 and Low magnesium l evels 275.[address] [address] January, [place] [address] [address] January, [place] [address] [address] January, [place] [id number] [place] [address] January, Scalp lesion 709.9 [facility] [address] [place] [id number] [place] [address] January, [facility] [address] [place] [id number] [place] [address] 30 Dec, 2014 Tear of medial cartilage or meniscus of knee, current 836.0 and 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 [facility] [address] [place] [address] [place] [address] Dec, [facility] [address] [place] [address] [place] [address] Dec, [facility] [address] [address] Dec, Squamous cell carcinoma, 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 42 [facility] [address] [place] [address] [place] [address] 14 Dec, 2014 [facility] [address] [place] [id number] [place] [address] Dec, [facility] [address] [place] [address] [place] [address] Nov, [facility] [address] [place] [id number] [place] [address] Nov, [facility] [address] [place] [id number] [place] [address] Nov, [facility] [address] [place] [id number] [place] [address] Nov, [facility] [address] [place] [id number] [place] [address] Nov, [facility] [address] [place] [address] [place] [address] Nov, [facility] [address] [place] [id number] [place] [address] Nov, [facility] [address] [place] [address] [place] [address] Nov, [facility] [address] [id number] [place] [address] Nov, [facility] [address] [id number] [place] [address] Nov, [facility] [address] [id number] [place] [address] Nov, [facility] [address] [id number] [place] [address] Nov, [facility] [address] [id number] [place] [address] Oct, 2014 [facility] [address] [id number] [place] [address] Oct, 2014 [facility] [address] [id number] [place] [address] Oct, 2014 [facility] [address] [id number] [place] [address] Oct, 2014 [facility] [address] [id number] [place] [address] Oct, 2014 [facility] [address] [id number] [place] [address] Oct, 2014 [facility] [address] [id number] [place] [address] Oct, [facility] [address] [id number] [place] [address] Oct, 2014 [facility] [address] [id number] [place] [address] Oct, [facility] [address] [id number] [place] [address] Sep, [facility] [address] [id number] [place] [address] Sep, [facility] [address] [id number] [place] [address] Sep, [facility] [address] [id number] [place] [address] Sep, [facility] [address] [id number] [place] [address] Sep, [facility] [address] [id number] [place] [address] Sep, [facility] [address] [id number] [place] [address] Sep, [facility] [address] [id number] [place] [address] Sep, [facility] [address] [id number] [place] [address] Sep, [facility] [address] [id number] [place] [address] Sep, [facility] [address] [id number] [place] [address] Sep, [facility] [address] [id number] [place] [address] Sep, [facility] [address] [id number] [place] [address] Sep, [facility] [address] [id number] [place] [address] Sep, [facility] [address] [id number] [place] [address] Sep, [facility] [address] [id number] [place] [address] Sep, [facility] [address] [id number] [place] [address] Aug, [facility] [address] [id number] [place] [address] Aug, [facility] [address] [id number] [place] [address] Aug, [facility] [address] [id number] [place] [address] Aug, [facility] [address] [id number] [facility] [place] [address] Aug, [facility] [address] [facility] [id number] [facility] [place] [address] Aug, [facility] [address] [facility] [id number] [place] [address] Aug, [facility] [address] [facility] [id number] [place] [address] Aug, [facility] [address] [facility] [id number] [place] [address] Aug, [facility] [address] [facility] [id number] [facility] [place] [address] Aug, [facility] [address] [id number] [place] [address] Aug, [facility] [address] [place] [id number] Aug, [facility] [address] [facility] [id number] [place] [address] Aug, [facility] [address] [id number] [place] [address] Aug, [facility] [address] [id number] [place] [address] Aug, [facility] [address] [id number] [place] [address] Aug, [facility] [address] [id number] [place] [address] Aug, [facility] [address] [id number] [place] [address] Aug, [facility] [address] [facility] [id number] [place] [address] Aug, [facility] [address] [id number] [place] [address] Aug, [facility] [address] [id number] [place] [address] 08 Aug, 2014 [facility] [address] [id number] [place] [address] Aug, [facility] [address] [id number] [place] [address] Aug, [facility] [address] [id number] [place] [address] Aug, [facility] [address] [id number] [place] [address] Aug, [facility] [address] [id number] [place] [address] Aug, [facility] [address] [id number] [place] [address] Aug, [facility] [address] [id number] [place] [address] Aug, [facility] [address] [id number] [place] [address] Aug, [facility] [address] [id number] [place] [address] Aug, [facility] [address] [id number] [place] [address] Jul, [facility] [address] [id number] [place] [address] Jul, [facility] [address] [id number] [place] [address] Jul, [facility] [address] [id number] [place] [address] Jul, [facility] [id number] [place] [address] Jul, [facility] [address] [id number] [place] [address] Jul, [facility] [address] [id number] [place] [address] Jul, [facility] [address] [id number] [place] [address] Jul, [facility] [address] [id number] [place] [address] Jul, [facility] [address] [id number] [place] [address] Jul, [facility] [address] [id number] [place] [address] Jun, [facility] [address] [id number] [place] [address] Jun, [facility] [address] [id number] [place] [address] Jun, [facility] [address] [id number] [place] [address] Jun, [facility] [address] [id number] [place] [address] Jun, [facility] [address] [id number] [place] [address] Jun, [facility] [address] [id number] [place] [address] Jun, [facility] [address] [id number] [place] [address] Jun, [facility] [address] [id number] [place] [address] Jun, [facility] [address] [id number] [place] [address] Jun, [facility] [address] [id number] [place] [address] 29 May, 2014 [facility] [address] [id number] [place] [address] 29 May, 2014 [facility] [address] [id number] [place] [address] May, [facility] [address] [id number] [place] [address] May, [facility] [place] [facility] [address] [id number] [place] [address] 17 May, 2013 [facility] [place] [facility] [address] [id number] [facility] [place] [address] 17 May, 2013 [facility] [place] [facility] [address] [id number] [place] [address] 15 May, 2013 [facility] [place] [facility] [address] [id number] [facility] [place] [address] 15 May, 2013 [facility] [place] [facility] [address] [facility] [id number] [place] [address] 15 May, 2013 [facility] [place] [facility] [address] [id number] [place] [address] 15 May, 2013 [facility] [place] [facility] [address] [facility] [id number] [place] [address] 10 May, 2013 [facility] [place] [facility] [address] [facility] [id number] [place] [address] 10 May, 2013 [facility] [place] [facility] [address] [facility] [id number] [place] [address] 09 May, 2013 [facility] [place] [facility] [address] [facility] [id number] [place] [address] 09 May, 2013 [facility] [place] [facility] [address] [facility] [id number] [place] [address] 04 May, 2013 [facility] [place] [facility] [address] [facility] [id number] [place] [address] May, 2013 [facility] [place] [facility] [address] [facility] [id number] [place] [address] Apr, [facility] [place] [facility] [address] [id number] [place] [address] Apr, [facility] [place] [facility] [address] [id number] [place] [address] Apr, [facility] [place] [facility] [address] [facility] [id number] [place] [address] Apr, [facility] [place] [facility] [address] [id number] [place] [address] Apr, [facility] [place] [facility] [address] [id number] [place] [address] Apr, [facility] [place] [facility] [address] [facility] [id number] [facility] [place] [address] Apr, [facility] [place] [facility] [address] [facility] [id number] [facility] [place] [address] Apr, [facility] [place] [facility] [address] [facility] [id number] [place] [address] Apr, [facility] [place] [facility] [address] [facility] [id number] [place] [address] Apr, [facility] [place] [facility] [address] [facility] [id number] [facility] [place] [address] Apr, [facility] [place] [facility] [address] [id number] [facility] [place] [address] Apr, [facility] [place] [facility] [address] [facility] [id number] [facility] [place] [address] Apr, [facility] [place] [facility] [address] [facility] [id number] [facility] [place] [address] Apr, [facility] [place] [facility] [address] [id number] [facility] [place] [address] Apr, [facility] [place] [facility] [address] [facility] [id number] [place] [address] Mar, [facility] [place] [facility] [address] [facility] [address] [id number] [facility] [place] [address] Mar, [facility] [place] [facility] [address] [facility] [id number] [facility] [place] [address] Mar, [facility] [place] [facility] [address] [id number] [facility] [place] [address] Mar, [facility] [place] [facility] [address] [facility] [id number] [facility] [place] [address] Mar, [facility] [place] [facility] [address] [id number] [facility] [place] [address] Mar, [facility] [place] [facility] [address] [facility] [id number] [place] [address] Mar, 2013 [facility] [place] [facility] [address] [facility] [id number] [place] [address] Mar, 2013 [facility] [address] [id number] [place] [address] Mar, 2013 [facility] [address] [id number] [place] [address] Mar, 2013 [facility] [address] [facility] [id number] [place] [address] Mar, 2013 [facility] [address] [id number] [place] [address] Mar, 2013 [facility] [address] [id number] [place] [address] Mar, 2013 [facility] [address] [id number] [place] [address] Mar, 2013 [facility] [address] [id number] [place] [address] Mar, 2013 [facility] [address] [id number] [place] [address] Mar, 2013 [facility] [address] [id number] [place] [address] Mar, 2013 [facility] [address] [id number] [place] [address] Mar, 2013 [facility] [address] [id number] [place] [address] Feb, [facility] [address] [facility] [id number] [place] [address] Feb, [facility] [address] [id number] [place] [address] Feb, [facility] [address] [id number] [place] [address] Feb, [facility] [address] [id number] [place] [address] Feb, [facility] [address] [facility] [id number] [place] [address] Feb, [facility] [address] [facility] [id number] [facility] [place] [address] Feb, [facility] [address] [facility] [id number] [place] [address] Feb, [facility] [address] [id number] [facility] [place] [address] Feb, [facility] [address] [facility] [id number] [facility] [place] [address] Feb, [facility] [address] [id number] [place] [address] Feb, [facility] [address] [id number] [place] [address] Feb, [facility] [address] [id number] [place] [address] Feb, [facility] [address] [id number] [place] [address] Feb, [facility] [address] [id number] [place] [address] January, [facility] [address] [id number] [place] [address] January, [facility] [address] [id number] [place] [address] January, [facility] [address] [facility] [id number] [place] [address] January, [facility] [address] [id number] [place] [address] January, [facility] [address] [id number] [place] [address] January, [facility] [address] [id number] [place] [address] January, [facility] [address] [id number] [facility] [place] [address] January, [facility] [address] [id number] [facility] [place] [address] January, [facility] [address] [facility] [id number] [place] [address] January, [facility] [address] [id number] [place] [address] January, [facility] [address] [id number] [place] [address] January, [facility] [address] [facility] [id number] [facility] [place] [address] January, [facility] [address] [id number] [place] [address] January, [facility] [address] [id number] [place] [address] Dec, [facility] [address] [id number] [place] [address] Dec, [facility] [address] [id number] [facility] [place] [address] Dec, [facility] [address] [id number] [place] [address] Dec, [facility] [address] [id number] [place] [address] Dec, [facility] [address] [id number] [facility] [place] [address] Dec, [facility] [address] [facility] [id number] [place] [address] Dec, [facility] [address] [id number] [place] [address] Dec, [facility] [address] [id number] [place] [address] Dec, [facility] [address] [id number] [place] [address] Dec, [facility] [address] [facility] [id number] [place] [address] Nov, [facility] [address] [id number] [place] [address] Nov, [facility] [address] [id number] [place] [address] Nov, [facility] [address] [id number] [place] [address] Nov, [facility] [address] [id number] [place] [address] Nov, [facility] [address] [id number] [place] [address] Nov, [facility] [address] [id number] [place] [address] Nov, [facility] [address] [id number] [place] [address] Nov, [facility] [address] [id number] [place] [address] Nov, [facility] [address] [id number] [place] [address] Nov, [facility] [address] [id number] [place] [address] Oct, [facility] [address] [id number] [place] [address] Oct, [facility] [address] [id number] [place] [address] Oct, [facility] [address] [facility] [id number] [place] [address] Oct, [facility] [address] [id number] [place] [address] Oct, [facility] [address] [id number] [place] [address] Oct, [facility] [address] [id number] [place] [address] 14 Oct, 2013 [facility] [address] [id number] [place] [address] Oct, [facility] [address] [id number] [place] [address] Oct, [facility] [address] [id number] [place] [address] Oct, [facility] [address] [id number] [place] [address] Oct, [facility] [address] [id number] [place] [address] Oct, [facility] [address] [id number] [place] [address] Oct, [facility] [address] [id number] [place] [address] Oct, [facility] [address] [id number] [place] [address] Sep, [facility] [address] [id number] [place] [address] Sep, [facility] [address] [id number] [place] [address] Sep, [facility] [address] [id number] [place] [address] Sep, [facility] [address] [id number] [place] [address] Sep, [facility] [address] [id number] [place] [address] Sep, [facility] [address] [id number] [place] [address] Sep, [facility] [address] [id number] [place] [address] Sep, [facility] [address] [id number] [place] [address] Sep, [facility] [address] [id number] [place] [address] Sep, [facility] [address] [id number] [place] [address] Aug, [facility] [address] [id number] [place] [address] Aug, [facility] [address] [id number] [place] [address] Jul, [facility] [address] [id number] [place] [address] Jul, [facility] [address] [id number] [place] [address] Jul, [facility] [address] [id number] [place] [address] Jul, [facility] [address] [id number] [place] [address] Jul, [facility] [address] [id number] [place] [address] Jul, [facility] [address] [id number] [place] [address] Jul, [facility] [address] [id number] [place] [address] Jul, [facility] [address] [id number] [place] [address] Jul, [facility] [address] [id number] [place] [address] Jul, [facility] [address] [id number] [place] [address] Jul, [facility] [address] [id number] [place] [address] Jul, [facility] [address] [id number] [place] [address] Jul, [facility] [address] [id number] [place] [address] Jul, 2012 [facility] [address] [id number] [place] [address] Jul, 2012 [facility] [address] [id number] [place] [address] Jul, 2012 [facility] [address] [id number] [place] [address] Jul, 2012 [facility] [address] [id number] [place] [address] Jul, 2012 [facility] [address] [id number] [place] [address] Jul, 2012 [facility] [address] [id number] [place] [address] Jun, 2012 [facility] [address] [id number] [place] [address] Jun, 2012 [facility] [address] [id number] [place] [address] Jun, 2012 [facility] [address] [id number] [place] [address] Jun, 2012 [facility] [address] [id number] [place] [address] Jun, 2012 [facility] [address] [id number] [place] [address] Jun, 2012 [facility] [address] [id number] [place] [address] Jun, 2012 [facility] [address] [id number] [place] [address] Jun, 2012 [facility] [address] [id number] [place] [address] Jun, 2012 [facility] [address] [id number] [place] [address] Jun, 2012 [facility] [address] [id number] [place] [address] Jun, 2012 [facility] [address] [id number] [place] [address] 26 May, 2012 [facility] [address] [id number] [place] [address] 25 May, 2012 [facility] [address] [id number] [place] [address] 19 May, 2012 [facility] [address] [id number] [place] [address] 17 May, 2012 [facility] [address] [id number] [place] [address] 11 May, 2012 [facility] [address] [id number] [place] [address] 10 May, 2012 [facility] [address] [id number] [place] [address] May, [facility] [address] [id number] [place] [address] 05 May, 2013 [facility] [address] [id number] [place] [address] Apr, [facility] [address] [id number] [place] [address] Apr, [facility] [address] [id number] [place] [address] Apr, [facility] [address] [id number] [place] [address] Apr, [facility] [address] [id number] [place] [address] Apr, [facility] [address] [id number] [place] [address] Mar, [facility] [address] [id number] [place] [address] Mar, [facility] [address] [id number] [place] [address] Mar, [facility] [address] [id number] [place] [address] Mar, [facility] [address] [id number] [place] [address] Mar, [facility] [address] [id number] [place] [address] Mar, [facility] [address] [id number] [place] [address] Mar, [facility] [address] [id number] [place] [address] Mar, [facility] [address] [id number] [place] [address] Feb, [facility] [address] [id number] [place] [address] Feb, [facility] [address] [id number] [place] [address] January, [facility] [address] [id number] [place] [address] January, [facility] [address] [id number] [place] [address] Dec, [facility] [address] [id number] [place] [address] Dec, [facility] [address] [id number] [place] [address] Nov, [facility] [address] [id number] [place] [address] Nov, [facility] [address] [id number] [place] [address] Nov, [facility] [address] [id number] [place] [address] Nov, [facility] [address] [id number] [place] [address] Oct, [facility] [address] [id number] [place] [address] Oct, [facility] [address] [id number] [place] [address] Oct, [facility] [address] [id number] [place] [address] Oct, [facility] [address] [id number] [place] [address] 16 Oct, 2012 [facility] [address] [id number] [place] [address] 14 Oct, 2012 [facility] [address] [id number] [place] [address] 08 Oct, 2012 [facility] [address] [id number] [place] [address] Oct, [facility] [address] [id number] [place] [address] Oct, [facility] [address] [id number] [place] [address] Sep, [facility] [address] [id number] [place] [address] Sep, [facility] [address] [id number] [place] [address] Sep, [facility] [address] [id number] [place] [address] Sep, [facility] [address] [id number] [place] [address] Sep, [facility] [address] [id number] [place] [address] Sep, [facility] [address] [id number] [place] [address] Sep, [facility] [address] [id number] [place] [address] Sep, [facility] [address] [id number] [place] [address] Aug, [facility] [address] [id number] [place] [address] Aug, [facility] [address] [id number] [place] [address] Aug, [facility] [address] [id number] [place] [address] Aug, [facility] [address] [id number] [place] [address] Aug, [facility] [address] [id number] [place] [address] Aug, [facility] [address] [id number] [place] [address] Aug, [facility] [address] [id number] [place] [address] Aug, [facility] [address] [id number] [place] [address] Jul, [facility] [address] [id number] [place] [address] Jul, [facility] [address] [id number] [place] [address] Jul, [facility] [address] [id number] [place] [address] Jul, [facility] [address] [id number] [place] [address] Jul, [facility] [address] [id number] [place] [address] Jul, [facility] [address] [id number] [place] [address] Jun, [facility] [address] [id number] [place] [address] Jun, [facility] [address] [id number] [place] [address] Jun, [facility] [address] [id number] [place] [address] Jun, [facility] [address] [id number] [place] [address] Jun, [facility] [address] [facility] [id number] [place] [address] Jun, [facility] [address] [facility] [id number] [place] [address] Jun, [facility] [address] [id number] [place] [address] Jun, [facility] [address] [id number] [place] [address] Jun, [facility] [address] [facility] [id number] [place] [address] May, [facility] [address] [id number] [place] [address] 24 May, 2012 [facility] [address] [id number] [place] [address] May, [facility] [address] [id number] [place] [address] Apr, [facility] [address] [id number] [place] [address] Apr, [facility] [address] [id number] [place] [address] Apr, [facility] [address] [id number] [place] [address] Apr, [facility] [address] [id number] [place] [address] Apr, [facility] [address] [id number] [place] [address] Apr, [facility] [address] [id number] [place] [address] Mar, [facility] [address] [id number] [place] [address] Mar, [facility] [address] [id number] [place] [address] Mar, [facility] [address] [id number] [place] [address] Mar, [facility] [address] [id number] [place] [address] Feb, [facility] [address] [id number] [place] [address] Feb, [facility] [address] [id number] [place] [address] Feb, [facility] [address] [id number] [place] [address] Feb, [facility] [address] [id number] [place] [address] Feb, [facility] [address] [id number] [place] [address] January, [facility] [address] [id number] [place] [address] January, [facility] [address] [id number] [place] [address] January, [facility] [address] [id number] [place] [address] January, [facility] [address] [id number] [place] [address] January, [facility] [address] [id number] [place] [address] January, [facility] [address] [id number] [place] [address] Dec, [facility] [address] [id number] [place] [address] Dec, [facility] [address] [id number] [place] [address] Dec, [facility] [address] [id number] [place] [address] Dec, [facility] [address] [id number] [place] [address] Dec, [facility] [address] [id number] [place] [address] 27 Nov, 2011 [facility] [address] [id number] [place] [address] 14 Nov, 2011 [facility] [address] [id number] [place] [address] 12 Nov, 2011 [facility] [address] [id number] [place] [address] 07 Nov, 2011 [facility] [address] [id number] [place] [address] 29 Oct, 2011 [facility] [address] [id number] [place] [address] 28 Oct, 2011 [facility] [address] [id number] [place] [address] 24 Oct, 2011 [facility] [address] [id number] [place] [address] 13 Oct, 2011 [facility] [address] [id number] [place] [address] 08 Oct, 2011 [facility] [address] [id number] [place] [address] Sep, [facility] [address] [id number] [place] [address] 30 Sep, 2011 [facility] [address] [id number] [place] [address] Sep, [facility] [address] [id number] [place] [address] Sep, [facility] [address] [id number] [place] [address] Sep, [facility] [address] [id number] [place] [address] 05 Sep, 2011 [facility] [address] [id number] [place] [address] Aug, [facility] [address] [id number] [place] [address] Aug, [facility] [address] [facility] [id number] [place] [address] Aug, [facility] [address] [facility] [id number] [place] [address] Jul, [facility] [address] [id number] [place] [address] Jul, [facility] [address] [id number] [place] [address] Jul, [facility] [address] [facility] [id number] [facility] [address] Jul, [facility] [address] [id number] [place] [address] Jun, [facility] [address] [id number] [place] [address] Jun, [facility] [address] [id number] [place] [address] Jun, [facility] [address] [id number] [place] [address] Jun, [facility] [address] [id number] [place] [address] Jun, [facility] [address] [id number] [place] [address] Jun, [facility] [address] [id number] [place] [address] Mar, [facility] [address] [facility] [id number] [place] [address] Dec, [facility] [address] [id number] [place] [address] Dec, [facility] [address] [id number] [place] [address] Nov, [facility] [address] [id number] [place] [address] 16 Nov, 2010 [facility] [address] [id number] [place] [address] 10 Sep, 2010 [facility] [address] [id number] [place] [address] 31 Aug, 2010 [facility] [address] [id number] [place] [address] 29 Aug, 2010 [facility] [address] [id number] [place] [address] 29 Aug, 2010 [facility] [address] [id number] [place] [address] 29 Aug, 2010 [facility] [address] [id number] [place] [address] 27 Aug, 2010 [facility] [address] [id number] [place] [address] 14 Aug, 2010 [facility] [address] [id number] [place] [address] 08 Aug, 2010 [facility] [address] [id number] [place] [address] 08 Aug, 2010 [facility] [address] [id number] [place] [address] 07 Aug, 2010 [facility] [address] [id number] [place] [address] 06 Aug, 2010 [facility] [id number] [place] [address] 06 Aug, 2010 [facility] [id number] [place] [address] Aug, [facility] [id number] [place] [address] 30 Jul, 2010 [facility] [id number] [place] [address] 30 Jul, 2010 [facility] [id number] [place] [address] 30 Jul, 2010 [facility] [id number] [place] [address] Jul, [facility] [id number] [place] [address] Jul, [facility] [id number] [place] [address] Jul, [facility] [id number] [place] [address] 24 Jun, 2010 [facility] [id number] [place] [address] Jun, [facility] [id number] [place] [address] Jun, [facility] [id number] [place] [address] Jun, [facility] [id number] [place] [address] Apr, [facility] [id number] [place] [address] Mar, [facility] [id number] [place] [address] Feb, [facility] [id number] [place] [address] January, [facility] [id number] [place] [address] 15 Dec, 2009 [facility] [id number] [place] [address] Nov, [facility] [id number] [place] [address] Aug, [facility] [id number] [place] [address] Aug, [facility] [id number] [place] [address] 07 Aug, 2009 [facility] [id number] [place] [address] Jul, [facility] [id number] [place] [address] Jul, [facility] [id number] [place] [address] Jul, [facility] [id number] [place] [address] Jun, [facility] [id number] [place] [address] Jun, [facility] [id number] [place] [address] Jun, [facility] [id number] [place] [address] Jun, [facility] [id number] [place] [address] Jun, [facility] [id number] [place] [address] Jun, [facility] [id number] [place] [address] Apr, [facility] [id number] [place] [address] Apr, [facility] [id number] [place] [address] Feb, [facility] [id number] [place] [address] January, [facility] [id number] [place] [address] Dec, IMMUNIZATIONS No Known Immunizations SOCIAL HISTORY [...] release (Left) 2000 Surgical History EGD (Formerly [facility]) 2009 Surgical History colonoscopy 2009 (Formerly [facility]), 2013 ([place] ) Surgical History heart cath: CAD w/ [...] History inability to urinate 09/16/15 Hospitalization History [facility] inpatient mental health ea rly 1999's Hospitalization History hyperkalemia 10/2017 Hospitalization History fluid in lung
--- OUTSIDE RECORDS SUMMARY | 2020-03-01 16:57 | XMS REPORT ---
Author Author Michele WASHBURN Organization [facility] Address [address] [place] [address] Care Team Providers Care Clinic Administrator Name Role Phone NOEMI WASHBURN Unavailable PROBLEMS Type Condition ICD9-CM Code MCP50-JO Code Onset Dates Condition S tatus SNOMED Code Problem DM neuro manif type II E11.49 Active 13233842 Problem Chronic pain G89.29 Active 5987850 1 Problem Diabetes E11.9 Active 21323977 Problem Reactive airway disease J45.909 Active 427486684009 Problem Leukocytosis D72.829 Active 9651327 06 Problem Insomnia, unspecified type G47.00 Act sharon 089007369 Problem Bipolar I disorder, most recent episode (or curr ent) mixed, moderate F31.62 Active 49009777 Problem Primary osteoarthritis of right knee M17.11 Active [id number] Problem Cough R05 Active 63332412 Problem Pure hypercholesterolemia E78.00 Acti ve 760543322 Problem Dysuria R30.0 Active 30423745 Problem Benign prostatic hyperplasia with lower urinary tract symptoms, unspecified morphology N40.1 Active 20141 6007 Problem Eustachian tube dysfunction, unspecified laterality H69.80 Active 26462122 Problem Polyneuropathy associated with underlying disease G63 Active 124409376 Problem Diabetic polyneuropathy associated with type 2 d iabetes mellitus E11.42 Active 98021587 Problem Anemia of chronic illness D63.8 Acti ve 685391330 Problem Chronic lymphocytic leukemia C91.10 A ctive 57883963 Problem Bilateral primary osteoarthritis of knee M17.0 Active 760040128 Problem 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 Active 904225798 Problem Eye exam abnormal R93.8 Active 16 1836874 Problem Retinal edema H35.81 Active 954095 6 Problem Lymphocytosis D72.820 Active 407242 09 Problem Bipolar disorder, in partial remission, most rec ent episode depressed F31.75 Active 64435866 Problem Hypokalemia E87.6 Active 16087372 Problem Falling R29.6 Active 273423390 Problem Pressure ulcer of other site, stage 3 L89.893 Active 503436293 Problem Other iron deficiency anemia D50.8 A ctive 71288055 Problem Mild cognitive impairment G31.84 Acti ve 665171548 Problem Skin cancer C44.90 Active 61867944 7 Problem nursing home (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 Z79.4 Active 395484459 Problem Morbid obesity E66.01 Active 51484 6002 Problem Mood disorder F39 Active 836209 05 Problem Anxiety F41.9 Active 55665757 Problem Essential hypertension I10 Active 87332795 Problem Bipolar disorder F31.9 Active 137 27402 Problem Chronic diastolic (congestive) heart failure I50.3 2 Active 141300152 Problem Psychophysiological insomnia F51.04 A ctive 360477288 Problem Type 2 diabetes mellitus with diabetic neuropathy, uns pecified E11.40 Active 12508605 ALLERGIES No Information ENCOUNTERS Encounter Location Date Diagnosis [place] [address] [address] Oct, [place] [address] [address] Oct, [place] [address] [address] Sep, [place] [address] [address] Sep, Mood disorder F39 [place] [address] [address] Sep, Bipolar disorder, in partial remission, most recent episode depressed F31.75 and Mild cognitive impairment G31.84 [facility] [address] [address] Sep, Mood disorder F39 [facility] [address] [address] Sep, [place] [address] [address] Sep, Mood disorder F39 [place] [address] [place] [id number] [place] [address] Sep, [facility] [address] [id number] [place] [address] Aug, Mood disorder F39 [facility] [address] [id number] [place] [address] Aug, [facility] [address] [id number] [place] [address] Aug, [facility] [address] [id number] [place] [address] Aug, [facility] [address] [id number] [place] [address] Aug, [facility] [address] [id number] [place] [address] Aug, [facility] [address] [id number] [place] [address] Aug, [facility] [address] [id number] [place] [address] Aug, [facility] [address] [id number] [place] [address] Aug, Essential hypertension I10 [facility] [address] [id number] [place] [address] Aug, Bipolar disorder, in partial remission, most recent episode depressed F31.75 and Mild cognitive impairment G31.84 [facility] [address] [place] [id number] [place] [address] Aug, Mood disorder F39 [facility] [address] [id number] [place] [address] Aug, [facility] [address] [place] [id number] [place] [address] Aug, Bipolar disorder, in partial remission, most recent episode depressed F31.75 and Mild cognitive impairment G31.84 [facility] [address] [place] [id number] [place] [address] Jul, Bipolar disorder, in partial remission, most recent episode depressed F31.75 and Mild cognitive impairment G31.84 [facility] [address] [address] Jul, Psychophysiological insomnia F51.04 [facility] [address] [address] Jul, [facility] [address] [address] Jul, [facility] [address] [address] Jul, [facility] [address] [address] Jul, [facility] [address] [address] Jul, [facility] [address] [address] Jul, [facility] [address] [address] Jul, Bipolar disorder, in partial remission, most recent episode depressed F31.75 and Mild cognitive impairment G31.84 [facility] [address] [address] Jul, Chronic pain G89.29 ; Diabetes E11.9 ; E ssential hypertension I10 ; Ill feeling R68.89 ; Local infection of the skin and subcutaneous tissue, unspecified L08.9 and Other injury of unspecified body region, initial encounter T14.8XXA [facility] [address] [address] Jun, Bipolar disorder, in partial remission, most recent episode depressed F31.75 and Mild cognitive impairment G31.84 [facility] [address] [address] Jun, [facility] [address] [address] Jun, Bipolar disorder, in partial remission, most recent episode depressed F31.75 and Mild cognitive impairment G31.84 [facility] [address] [address] Jun, Psychophysiological insomnia F51.04 [facility] [address] [address] Jun, Psychophysiological insomnia F51.04 ; Ch ronic pain G89.29 ; Bipolar I disorder, most recent episode (or current) mixed, moderate F31.62 ; 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 ; Polyneuropathy associated with underlying disease G63 ; Type 2 diabetes mellitus with diabetic neuropathy, unspecified E11.40 ; nursing home (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 Z79.4 and Hyperglycemia R73.9 [place] [address] [address] Jun, Bipolar disorder, in partial remission, most recent episode depressed F31.75 and Mild cognitive impairment G31.84 [place] [address] [address] Jun, [place] [address] [address] Jun, Bipolar disorder F31.9 [place] [address] [address] May, Bipolar disorder, in partial remission, most recent episode depressed F31.75 and Mild cognitive impairment G31.84 [place] [address] [address] May, [place] [address] [address] Apr, Chronic pain G89.29 and Bipolar disorder F31.9 [facility] [address] [address] Mar, Bipolar disorder F31.9 and Chronic pain G89.29 [facility] [address] [address] Feb, Bipolar disorder F31.9 [facility] [address] [place] [id number] [place] [address] 17 Feb, 2019 Cellulitis of right upper extremity L03. 113 and Skin abrasion T14.8XXA [facility] [address] [place] [address] [place] [address] Feb, Bipolar disorder, in partial remission, most recent episode depressed F31.75 and Mild cognitive impairment G31.84 [facility] [address] [address] Feb, Chronic pain G89.29 [facility] [address] [address] Feb, Bipolar disorder, in partial remission, most recent episode depressed F31.75 and Mild cognitive impairment G31.84 [place] [address] [address] January, Bipolar disorder, in partial remission, most recent episode depressed F31.75 and Mild cognitive impairment G31.84 [facility] [address] [address] January, Chronic pain G89.29 and Bipolar disorder F31.9 [facility] [address] [address] January, Bipolar disorder, in partial remission, most recent episode depressed F31.75 and Mild cognitive impairment G31.84 [facility] [address] [place] [id number] [place] [address] Dec, [facility] [address] [address] Dec, Chronic pain G89.29 and Bipolar disorder F31.9 [facility] [address] [address] Dec, Edema of both lower extremities R60.0 [facility] [address] [place] [address] [place] [address] Dec, Bipolar disorder F31.9 [facility] [address] [address] Dec, Bipolar disorder, in partial remission, most recent episode depressed F31.75 and Mild cognitive impairment G31.84 [place] [address] [address] Nov, [place] [address] [address] Nov, Chronic pain G89.29 [place] [address] [address] Nov, Bipolar disorder, in partial remission, most recent episode depressed F31.75 and Mild cognitive impairment G31.84 [place] [address] [address] Nov, Bipolar disorder F31.[address] [address] 04 Nov, 2018 Encounter for Medicare annual [...] unspecified morphology N40.1 and Essential hypertension I10 [place] [address] [address] Oct, Chronic pain G89.29 [place] [address] [address] Oct, Diabetes E11.9 [place] [address] [address] Oct, Bipolar I disorder, most recent episode (or current) mixed, moderate F31.62 and Mild cognitive impairment G31.84 [place] [address] [address] Oct, Bipolar I disorder, most recent episode (or current) mixed, moderate F31.62 and Mild cognitive impairment G31.84 [place] [address] [address] Sep, Bipolar I disorder, most recent episode (or current) mixed, moderate F31.62 and Mild cognitive impairment G31.84 [place] [address] [address] Sep, [place] [address] [address] Sep, Diabetes E11.9 ; Hypoxia R09.02 ; Hyperg lycemia R73.9 ; Therapeutic drug monitoring Z51.81 ; BMI 50.0-59.9, adult Z68.43 and Skin cancer C44.[address] [address] Sep, Chronic pain G89.29 [place] [address] [address] Sep, Bipolar I disorder, most recent episode (or current) mixed, moderate F31.62 [place] [address] [address] Sep, [place] [address] [address] Sep, [place] [address] [address] Aug, Chronic pain G89.29 [place] [address] [address] Aug, Bipolar I disorder, most recent episode (or current) mixed, moderate F31.62 [place] [address] [address] Aug, Bipolar I disorder, most recent episode (or current) mixed, moderate F31.62 and Mild cognitive impairment G31.84 [place] [address] [place] [address] [place] [address] Jul, [facility] [address] [place] [id number] [place] [address] Jul, Chronic pain G89.29 [facility] [address] [place] [address] [place] [address] Jul, Bipolar I disorder, most recent episode (or current) mixed, moderate F31.62 and Mild cognitive impairment G31.84 [facility] [address] [place] [id number] [place] [address] Jul, Bipolar I disorder, most recent episode (or current) mixed, moderate F31.62 and MCI (mild cognitive impairment) G31.84 [facility] [address] [place] [id number] [place] [address] Jul, [facility] [address] [address] Jul, [facility] [address] [place] [id number] [place] [address] Jul, Bipolar I disorder, most recent episode (or current) mixed, moderate F31.62 [facility] [address] [place] [id number] [place] [address] Jul, Chronic pain G89.29 [facility] [address] [place] [id number] [place] [address] Jun, Bipolar I disorder, most recent episode (or current) mixed, moderate F31.62 [facility] [address] [place] [id number] [place] [address] Jun, Pre-procedure lab exam Z01.812 [facility] [address] [place] [id number] [place] [address] Jun, [facility] [address] [id number] [place] [id number] Jun, [facility] [address] [place] [id number] [place] [address] Jun, [place] [address] [address] Jun, Forgetfulness R68.89 ; Pre-syncope R55 ; Localized edema R60.0 ; Other iron deficiency anemia D50.8 and BMI 50.0-59.9, adult Z68.43 [place] [address] [address] Jun, Chronic pain G89.29 [place] [address] [address] Jun, Chronic pain G89.29 [place] [address] [address] Jun, Bipolar I disorder, most recent episode (or current) mixed, moderate F31.62 [place] [address] [address] May, Chronic pain G89.29 [place] [address] [address] Apr, [place] [address] [address] Apr, Chronic pain G89.29 [place] [address] [address] Apr, Primary osteoarthritis of right knee M17 .11 [place] [address] [address] Mar, [address] [address] Mar, BMI 50.0-59.9, adult Z68.43 and Bipolar disorder, in partial remission, most recent episode depressed F31.[address] [address] Mar, Diabetes E11.9 ; Pure hypercholesterolem ia E78.00 ; Essential hypertension I10 ; Nausea with vomiting, unspecified R11.2 and Headache, unspecified headache type R51 [address] [place] [address] Mar, Bipolar I disorder, most recent episode (or current) mixed, moderate F31.62 [place] [address] [address] Mar, Bipolar I disorder, most recent episode (or current) mixed, moderate F31.62 [place] [address] [address] Mar, Chronic pain G89.29 [place] [address] [address] Mar, Bipolar I disorder, most recent episode (or current) mixed, moderate F31.62 [place] [address] [address] Feb, Bipolar I disorder, most recent episode (or current) mixed, moderate F31.62 [place] [address] [address] Feb, Chronic pain G89.29 [place] [address] [address] Feb, Decubitus ulcer of right foot, stage 3 L 89.893 and BMI 50.0-59.9, adult Z68.43 [place] [address] [address] 04 Feb, 2018 Bipolar I disorder, most recent episode (or current) mixed, moderate F31.62 [place] [address] [address] Feb, [facility] [address] [address] January, [place] [address] [address] January, Chronic pain G89.29 [facility] [address] [address] January, Bipolar I disorder, most recent episode (or current) mixed, moderate F31.62 [place] [address] [address] January, Bipolar I disorder, most recent episode (or current) mixed, moderate F31.62 [place] [address] [address] Dec, Bipolar I disorder, most recent episode (or current) mixed, moderate F31.62 and BMI 50.0-59.9, adult Z68.43 [place] [address] [address] Dec, Bipolar I disorder, most recent episode (or current) mixed, moderate F31.62 [place] [address] [address] Dec, Chronic pain G89.[address] [address] Dec, DM neuro manif type II E11.49 ; Right fl ank pain R10.9 ; nursing home 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 Z79.891 ; Encounter for medication monitoring Z51.81 and BMI 50.0-59.9, adult Z68.43 [place] [address] [address] Dec, Bipolar I disorder, most recent episode (or current) mixed, moderate F31.62 [place] [address] [address] Nov, Bipolar I disorder, most recent episode (or current) mixed, moderate F31.62 [place] [address] [address] Nov, Chronic pain G89.29 [place] [address] [address] Nov, Bipolar I disorder, most recent episode (or current) mixed, moderate F31.62 [place] [address] [address] Nov, Hypokalemia E87.6 [place] [address] [address] Nov, Bipolar I disorder, most recent episode (or current) mixed, moderate F31.62 [place] [address] [address] Oct, Chronic pain G89.29 [place] [address] [address] Oct, BMI 50.0-59.9, adult Z68.43 and Bipolar I disorder, most recent episode (or current) mixed, moderate F31.62 [place] [address] [address] Oct, Bipolar I disorder, most recent episode (or current) mixed, moderate F31.62 [place] [address] [address] Oct, [place] [address] [address] Oct, Hypokalemia E87.6 [place] [address] [address] Oct, DM neuro manif type II E11.[address] [address] Oct, Bipolar I disorder, most recent episode (or current) mixed, moderate F31.62 [place] [address] [address] Oct, Bipolar I disorder, most recent episode (or current) mixed, moderate F31.62 [place] [address] [address] 14 Oct, 2017 Hyperkalemia E87.5 ; Falling R29.6 ; BMI 50.0-59.9, adult Z68.43 and Acute left ankle pain M25.572 [place] [address] [address] Oct, DM neuro manif type II E11.[address] [address] Oct, [place] [address] [address] Sep, Chronic pain G89.29 [place] [address] [address] Sep, [address] [address] Sep, Bilateral primary osteoarthritis of knee M17.[address] [address] Sep, Generalized edema R60.[address] [address] Sep, Bipolar I disorder, most recent episode (or current) mixed, moderate F31.[address] [address] Sep, Hypoxia R09.02 ; Other hypervolemia E87. 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 ; Anemia of chronic illness D63.8 and BMI 50.0-59.9, adult Z68.[address] [address] Sep, [address] [address] Sep, Bipolar I disorder, most recent episode (or current) mixed, moderate F31.[address] [address] Aug, Chronic pain G89.[address] [address] Aug, Generalized edema R60.[address] [place] [address] Aug, [place] [address] [place] [address] Aug, [place] [address] [place] [address] Aug, Bipolar I disorder, most recent episode (or current) mixed, moderate F31.62 [place] [address] [place] [address] Aug, Bipolar I disorder, most recent episode (or current) mixed, moderate F31.62 [place] [address] [place] [address] Aug, Chronic pain G89.29 [place] [address] Jul, Bipolar I disorder, most recent episode (or current) mixed, moderate F31.62 [place] [address] [address] Jul, Bipolar I disorder, most recent episode (or current) mixed, moderate F31.62 and BMI 60.0-69.9, adult Z68.[address] [address] Jul, Bipolar I disorder, most recent episode (or current) mixed, moderate F31.62 [place] [address] [address] Jul, Chronic pain G89.[address] [address] Jul, Bipolar I disorder, most recent episode (or current) mixed, moderate F31.62 [place] [address] Jun, Polyneuropathy associated with underlyin g disease G63 and Diabetes E11.[address] [address] Jun, Bipolar I disorder, most recent episode (or current) mixed, moderate F31.62 [facility] [address] [address] Jun, Chronic pain G89.29 [facility] [address] [address] May, Bipolar I disorder, most recent episode (or current) mixed, moderate F31.62 [place] [address] [address] May, Bipolar I disorder, most recent episode (or current) mixed, moderate F31.62 [place] [address] [address] May, Diabetic polyneuropathy associated with type 2 diabetes mellitus E11.42 [place] [address] [address] 18 May, 2017 Bipolar I disorder, most recent episode (or current) mixed, moderate F31.62 [place] [address] [address] 13 May, 2017 Bipolar I disorder, most recent episode (or current) mixed, moderate F31.62 [place] [address] [address] May, Chronic pain G89.29 [facility] [address] [address] Apr, Bipolar I disorder, most recent episode (or current) mixed, moderate F31.62 [facility] [address] [address] Apr, [facility] [address] [address] Apr, Chronic pain G89.29 and DM neuro manif t ype II E11.49 [facility] [address] [address] Apr, [facility] [address] [address] Apr, Bipolar I disorder, most recent episode (or current) mixed, moderate F31.62 [facility] [address] [address] Apr, Chronic pain G89.29 [facility] [address] [address] Apr, Iliotibial band syndrome, left M76.32 [facility] [address] [address] Apr, Bipolar I disorder, most recent episode (or current) mixed, moderate F31.62 [place] [address] [address] Mar, Bipolar I disorder, most recent episode (or current) mixed, moderate F31.62 [facility] [address] [address] Mar, Bipolar I disorder, most recent episode (or current) mixed, moderate F31.62 [facility] [address] [address] Mar, [facility] [address] [address] Mar, Bipolar I disorder, most recent episode (or current) mixed, moderate F31.62 [facility] [address] [address] Mar, Chronic pain G89.29 [facility] [address] [address] Mar, Bipolar I disorder, most recent episode (or current) mixed, moderate F31.62 [facility] [address] [address] Mar, Bipolar I disorder, most recent episode (or current) mixed, moderate F31.62 [facility] [address] [address] Mar, Acute pain of left knee M25.562 ; Left h ip pain M25.552 ; Generalized edema R60.1 and Tongue swelling R22.0 [place] [address] [address] Mar, [place] [address] [address] Feb, Chronic pain G89.29 [place] [address] [address] Feb, Diabetes E11.9 [place] [address] [address] January, Chronic pain G89.29 [place] [address] [address] January, [place] [address] [address] January, Bipolar I disorder, most recent episode (or current) mixed, moderate F31.62 [place] [address] [address] Dec, Bipolar I disorder, most recent episode (or current) mixed, moderate F31.62 [place] [address] [address] Dec, Chronic pain G89.29 [place] [address] [address] Dec, Bipolar I disorder, most recent episode (or current) mixed, moderate F31.62 [place] [address] [address] Dec, Diabetes E11.9 ; Essential hypertension I10 ; Chronic pain G89.29 and Morbid obesity E66.01 [place] [address] [address] Dec, [address] [address] Dec, Bipolar I disorder, most recent episode (or current) mixed, moderate F31.62 [facility] [address] [id number] [place] [address] Dec, Bipolar I disorder, most recent episode (or current) mixed, moderate F31.62 [facility] [address] [address] Nov, Chronic pain G89.29 [facility] [address] [address] Nov, Bipolar I disorder, most recent episode (or current) mixed, moderate F31.62 [facility] [address] [address] Nov, [facility] [address] [address] Nov, Bipolar I disorder, most recent episode (or current) mixed, moderate F31.62 [facility] [address] [address] Nov, Bipolar I disorder, most recent episode (or current) mixed, moderate F31.62 [facility] [address] [address] Nov, [facility] [address] [address] Nov, [facility] [address] [address] Nov, [facility] [address] [address] Oct, Chronic pain G89.29 [facility] [address] [address] Oct, Bipolar I disorder, most recent episode (or current) mixed, moderate F31.62 [facility] [address] [address] Oct, [facility] [address] [address] 15 Feb, 2017 Chronic pain G89.29 ; Diabetes E11.9 ; A nxiety F41.9 and 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 [facility] [address] [address] Oct, [facility] [address] [address] Oct, Diabetes E11.9 [facility] [address] [address] Oct, Bipolar I disorder, most recent episode (or current) mixed, moderate F31.62 [place] [address] [address] Sep, Chronic pain G89.29 [facility] [address] [address] Sep, Chronic pain G89.29 [place] [address] [address] Aug, Chronic pain G89.29 [facility] [address] [address] Jul, [facility] [address] [address] Jul, Diabetes E11.9 [facility] [address] [address] Jul, Chronic pain G89.29 [facility] [address] [address] Jul, Bipolar I disorder, most recent episode (or current) mixed, moderate F31.62 [place] [address] [address] Jun, Bipolar I disorder, most recent episode (or current) mixed, moderate F31.62 [place] [address] [address] Jun, [facility] [address] [address] Jun, Bipolar I disorder, most recent episode (or current) mixed, moderate F31.62 [place] [address] [address] 30 May, 2016 Insomnia, unspecified type G47.00 [place] [address] [address] May, Bipolar I disorder, most recent episode (or current) mixed, moderate F31.62 [place] [address] [address] 14 May, 2016 [place] [address] [address] May, Bipolar I disorder, most recent episode (or current) mixed, moderate F31.62 [place] [address] [address] May, Diabetes E11.9 and Essential hypertensio n I10 [place] [address] [address] Apr, Chronic pain G89.29 [place] [address] [address] Apr, Bipolar I disorder, most recent episode (or current) mixed, moderate F31.62 [place] [address] [address] Apr, [place] [address] [address] Apr, [place] [address] [address] Mar, Chronic pain G89.29 ; Headache, unspecif ied headache type R51 ; Neuropathy G62.9 ; Pain of right hip joint M25.551 and Essential hypertension I10 [place] [address] [address] Mar, Chronic pain G89.29 [place] [address] [address] Mar, Bipolar I disorder, most recent episode (or current) mixed, moderate F31.62 [place] [address] [place] [address] Feb, Bipolar I disorder, most recent episode (or current) mixed, moderate F31.62 and Insomnia, unspecified type G47.00 [place] [address] [address] Feb, Chronic pain G89.29 [place] [address] [address] Feb, Bipolar I disorder, most recent episode (or current) mixed, moderate F31.62 [place] [address] [address] January, Bipolar I disorder, most recent episode (or current) mixed, moderate F31.62 [place] [address] [address] January, Chronic pain G89.29 [place] [address] [address] January, Chronic pain G89.29 and Essential hypert ension I10 [place] [address] [address] January, Bipolar I disorder, most recent episode (or current) mixed, moderate F31.62 [place] [address] [address] Dec, [place] [address] [address] Dec, [place] [address] [address] Dec, [place] [address] [address] Dec, [place] [address] [address] Nov, Reactive airway disease J45.909 [place] [address] [address] Nov, [place] [address] [address] Nov, [place] [address] [address] 30 Nov, 2015 [place] [address] [address] Nov, [place] [address] [address] Nov, Onychomycosis B35.1 ; Hammertoe M20.40 ; [place] or callus L84 and DM neuro manif type II E11.[address] [address] Nov, Chronic pain G89.29 ; Leukocytosis D72.8 29 and Diabetes E11.9 [place] [address] [address] Nov, [place] [address] [address] Oct, Bronchitis J40 [place] [address] [address] Oct, [place] [address] [address] Oct, [place] [address] [address] Oct, Mastoiditis, unspecified laterality H70. 90 and Type 2 diabetes mellitus with complication E11.[address] [address] Sep, [address] [address] Sep, Dysuria R30.0 ; Cough R05 ; Benign prost atic hyperplasia with lower urinary tract symptoms, unspecified morphology N40.1 ; Hypokalemia E87.6 and Eustachian tube dysfunction, unspecified laterality H69.80 [facility] [address] [address] Sep, Moderate mixed bipolar I disorder F31.62 [facility] [address] [address] Sep, Hypokalemia E87.6 [facility] [address] [address] Sep, [facility] [address] [address] Sep, Upper respiratory tract infection, unspe cified type J06.9 [facility] [address] [address] Aug, [facility] [address] [address] Aug, Dysuria R30.0 [facility] [address] [address] Aug, [facility] [address] [address] Jul, [facility] [address] [address] Jul, [facility] [address] [address] Jul, [facility] [address] [address] Jul, [facility] [address] [address] Jun, [facility] [address] [address] Jun, [facility] [address] [address] Jun, [facility] [address] [address] May, [facility] [address] [place] [id number] [place] [address] May, Bipolar I disorder, most recent episode (or current) mixed, moderate 296.62 [facility] [address] [place] [id number] [place] [address] May, [facility] [address] [address] May, Bipolar I disorder, most recent episode (or current) mixed, moderate 296.62 and Major depressive disorder, recurrent episode, severe, specified as with psychotic behavior 296.34 [facility] [address] [address] May, Bipolar I disorder, most recent episode (or current) mixed, moderate 296.62 [facility] [address] [address] May, [facility] [address] [address] Apr, [facility] [address] [address] Apr, [facility] [address] [address] Apr, Unspecified disorder of kidney and urete r 593.9 and Diabetes mellitus type 2, uncontrolled 250.02 [facility] [address] [address] Apr, [facility] [address] [address] Apr, [facility] [address] [address] Apr, [facility] [address] [address] Apr, [facility] [address] [address] Apr, Diabetes mellitus type II, uncontrolled 250.02 [facility] [address] [address] Apr, [facility] [address] [address] Mar, [facility] [address] [address] Mar, [facility] [address] [address] Mar, [facility] [address] [address] Mar, Major depressive disorder, recurrent epi sode, severe, specified as with psychotic behavior 296.34 and Bipolar I disorder, most recent episode (or current) mixed, moderate 296.62 [facility] [address] [address] Mar, Diabetes 250.00 ; Anuria 788.5 ; Nausea and vomiting 787.01 and Diarrhea 787.91 [facility] [address] [address] Mar, Diabetes 250.00 [facility] [address] [address] Mar, [facility] [address] [address] Mar, Diabetes 250.00 [facility] [address] [address] Mar, [facility] [address] [address] Mar, [facility] [address] [address] Mar, [facility] [address] [address] Mar, [facility] [address] [address] Mar, Bipolar I disorder, most recent episode (or current) mixed, moderate 296.62 and Major depressive disorder, recurrent episode, severe, specified as with psychotic behavior 296.34 [place] [id number] Mar, Magnesium deficiency 275.2 ; Hypokalemia 276.8 ; Nausea & vomiting 787.01 and Diabetes mellitus type 2, uncontrolled [address] [address] Feb, [address] [address] Feb, Bipolar I disorder, most recent episode (or current) mixed, moderate 296.[address] [address] Feb, Nausea and vomiting 787.01 ; Left elbow pain 719.42 ; Anuria 788.5 and Diabetes 250.[address] [address] Feb, [address] [address] Feb, Hypopotassemia 276.8 and Hypokalemia [address] [address] Feb, Hypopotassemia 276.8 and Hypokalemia [address] [address] Feb, Seborrheic keratoses 702.[address] [address] Feb, Hypopotassemia 276.8 and Low magnesium l evels 275.[address] [address] January, [address] [address] January, [place] [id number] [place] [address] January, [facility] [address] [place] [id number] [place] [address] January, Scalp lesion 709.9 [facility] [address] [place] [id number] [place] [address] January, [facility] [address] [address] Dec, Tear of medial cartilage or meniscus of knee, current 836.0 and 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 [facility] [address] [place] [id number] [place] [address] Dec, [facility] [address] [address] Dec, [facility] [address] [place] [id number] [place] [address] Dec, Squamous cell carcinoma, 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 42 [facility] [address] [place] [id number] [place] [address] 14 Dec, 2014 [facility] [address] [address] Dec, [facility] [address] [place] [id number] [place] [address] Nov, [facility] [address] [place] [id number] [place] [address] Nov, [facility] [address] [place] [id number] [place] [address] Nov, [facility] [address] [place] [id number] [place] [address] Nov, [facility] [address] [place] [id number] [place] [address] Nov, [facility] [address] [place] [id number] [place] [address] Nov, [facility] [address] [place] [id number] [place] [address] Nov, 2014 [facility] [address] [id number] [place] [address] Nov, [facility] [address] [id number] [place] [address] Nov, [facility] [address] [id number] [place] [address] Nov, [facility] [address] [id number] [place] [address] Nov, [facility] [address] [id number] [place] [address] Nov, [facility] [address] [id number] [place] [address] Oct, 2014 [facility] [address] [id number] [place] [address] Oct, 2014 [facility] [address] [id number] [place] [address] Oct, 2014 [facility] [address] [id number] [place] [address] Oct, 2014 [facility] [address] [id number] [place] [address] Oct, 2014 [facility] [address] [id number] [place] [address] Oct, 2014 [facility] [address] [id number] [place] [address] Oct, 2014 [facility] [address] [id number] [place] [address] Oct, 2014 [facility] [address] [id number] [place] [address] Oct, 2014 [facility] [address] [id number] [place] [address] Sep, [facility] [address] [id number] [place] [address] Sep, [facility] [address] [id number] [place] [address] Sep, [facility] [address] [id number] [place] [address] Sep, [facility] [address] [id number] [place] [address] Sep, [facility] [address] [id number] [place] [address] Sep, [facility] [address] [id number] [place] [address] Sep, [facility] [address] [id number] [place] [address] Sep, [facility] [address] [id number] [place] [address] Sep, [facility] [address] [id number] [place] [address] Sep, [facility] [address] [id number] [place] [address] Sep, [facility] [address] [id number] [place] [address] Sep, [facility] [address] [id number] [place] [address] Sep, [facility] [address] [id number] [place] [address] Sep, [facility] [address] [id number] [place] [address] Sep, [facility] [address] [id number] [place] [address] Sep, [facility] [address] [id number] [place] [address] Aug, [facility] [address] [id number] [place] [address] Aug, [facility] [address] [id number] [place] [address] Aug, [facility] [address] [id number] [place] [address] Aug, [facility] [address] [facility] [id number] [facility] [place] [address] Aug, [facility] [address] [facility] [id number] [place] [address] Aug, [facility] [address] [facility] [id number] [place] [address] Aug, [facility] [address] [facility] [id number] [place] [address] Aug, [facility] [address] [facility] [id number] [place] [address] Aug, [facility] [address] [id number] [place] [address] Aug, [facility] [address] [id number] [place] [address] Aug, [facility] [address] [facility] [id number] Aug, [facility] [address] [id number] [place] [address] Aug, [facility] [address] [id number] [place] [address] Aug, [facility] [address] [id number] [place] [address] Aug, [facility] [address] [facility] [id number] [place] [address] Aug, [facility] [address] [id number] [place] [address] Aug, [facility] [address] [facility] [id number] [place] [address] Aug, [facility] [address] [id number] [place] [address] Aug, [facility] [address] [id number] [place] [address] 08 Aug, 2014 [facility] [address] [id number] [place] [address] Aug, [facility] [address] [id number] [place] [address] Aug, [facility] [address] [id number] [place] [address] Aug, [facility] [address] [id number] [place] [address] Aug, [facility] [address] [id number] [place] [address] Aug, [facility] [address] [id number] [place] [address] Aug, [facility] [address] [id number] [place] [address] Aug, [facility] [address] [id number] [place] [address] Aug, [facility] [address] [id number] [place] [address] Aug, [facility] [address] [id number] [place] [address] Aug, [facility] [address] [id number] [place] [address] Jul, [facility] [address] [id number] [place] [address] Jul, [facility] [address] [id number] [place] [address] Jul, [facility] [address] [id number] [place] [address] Jul, [facility] [address] [id number] [place] [address] Jul, [facility] [address] [id number] [place] [address] Jul, [facility] [address] [id number] [place] [address] Jul, [facility] [address] [id number] [place] [address] Jul, [facility] [address] [id number] [place] [address] Jul, [facility] [address] [id number] [place] [address] Jul, [facility] [address] [id number] [place] [address] Jun, [facility] [address] [id number] [place] [address] Jun, [facility] [address] [id number] [place] [address] Jun, [facility] [address] [id number] [place] [address] Jun, [facility] [address] [id number] [place] [address] Jun, [facility] [address] [id number] [place] [address] Jun, [facility] [address] [id number] [place] [address] Jun, [facility] [address] [id number] [place] [address] Jun, [facility] [address] [id number] [place] [address] Jun, [facility] [address] [id number] [place] [address] Jun, [facility] [address] [id number] [place] [address] 29 May, 2014 [facility] [address] [id number] [place] [address] 29 May, 2014 [facility] [address] [id number] [place] [address] May, [facility] [address] [id number] [place] [address] 26 Sep, 2013 [facility] [address] [id number] [facility] [place] [address] 17 May, 2013 [facility] [address] [id number] [place] [address] 17 Sep, 2013 [facility] [address] [id number] [place] [address] 15 Sep, 2013 [facility] [address] [facility] [id number] [place] [address] 15 Sep, 2013 [facility] [address] [id number] [place] [address] 15 May, 2013 [facility] [address] [id number] [place] [address] 15 May, 2013 [facility] [address] [id number] [place] [address] 10 May, 2013 [facility] [address] [id number] [place] [address] 10 May, 2013 [facility] [address] [id number] [place] [address] 09 May, 2013 [facility] [address] [id number] [place] [address] 09 May, 2013 [facility] [address] [id number] [place] [address] 04 May, 2013 [facility] [address] [id number] [place] [address] 04 May, 2013 [facility] [facility] [address] [id number] [place] [address] Apr, [facility] [facility] [address] [id number] [place] [address] Apr, [facility] [place] [facility] [address] [id number] [place] [address] Apr, 2013 [facility] [place] [facility] [address] [id number] [place] [address] Apr, [facility] [place] [facility] [address] [id number] [place] [address] Apr, [facility] [place] [facility] [address] [facility] [id number] [facility] [place] [address] Apr, [facility] [facility] [address] [facility] [id number] [facility] [place] [address] Apr, [facility] [place] [facility] [address] [facility] [id number] [place] [address] Apr, [facility] [place] [facility] [address] [facility] [id number] [place] [address] Apr, [facility] [place] [facility] [address] [facility] [id number] [facility] [place] [address] Apr, [facility] [place] [facility] [address] [id number] [facility] [place] [address] Apr, [facility] [place] [facility] [address] [id number] [facility] [place] [address] Apr, [facility] [place] [facility] [address] [facility] [id number] [facility] [place] [address] Apr, [facility] [place] [facility] [address] [id number] [facility] [place] [address] Apr, [facility] [facility] [address] [id number] [place] [address] Apr, [facility] [facility] [address] [id number] [facility] [place] [address] Mar, [facility] [facility] [address] [facility] [id number] [facility] [place] [address] Mar, [facility] [address] [id number] [facility] [place] [address] Mar, [facility] [facility] [address] [facility] [id number] [facility] [place] [address] Mar, [facility] [address] [id number] [facility] [place] [address] Mar, [facility] [facility] [address] [facility] [id number] [place] [address] Mar, 2013 [facility] [address] [facility] [id number] [place] [address] Mar, 2013 [facility] [facility] [address] [facility] [id number] [place] [address] Mar, 2013 [facility] [address] [id number] [place] [address] Mar, 2013 [facility] [address] [facility] [id number] [place] [address] Mar, 2013 [facility] [address] [id number] [place] [address] Mar, 2013 [facility] [facility] [address] [id number] [place] [address] Mar, 2013 [facility] [address] [id number] [place] [address] Mar, 2013 [facility] [address] [id number] [place] [address] Mar, 2013 [facility] [facility] [address] [id number] [place] [address] Mar, 2013 [facility] [address] [id number] [place] [address] Mar, 2013 [facility] [address] [id number] [place] [address] Mar, 2013 [facility] [address] [id number] [place] [address] Mar, 2013 [facility] [address] [facility] [id number] [place] [address] Feb, [facility] [address] [id number] [place] [address] Feb, [facility] [address] [id number] [place] [address] Feb, [facility] [address] [id number] [place] [address] Feb, [facility] [address] [id number] [place] [address] Feb, [facility] [address] [facility] [id number] [facility] [place] [address] Feb, [facility] [address] [facility] [id number] [place] [address] Feb, [facility] [address] [facility] [id number] [facility] [place] [address] Feb, [facility] [address] [facility] [id number] [facility] [place] [address] Feb, [facility] [address] [id number] [place] [address] Feb, [facility] [address] [id number] [place] [address] Feb, [facility] [address] [id number] [place] [address] Feb, [facility] [address] [facility] [id number] [place] [address] Feb, [facility] [address] [id number] [place] [address] Feb, [facility] [address] [id number] [place] [address] January, [facility] [address] [id number] [place] [address] January, [facility] [address] [facility] [id number] [place] [address] January, [facility] [address] [id number] [place] [address] January, [facility] [address] [id number] [place] [address] January, [facility] [address] [id number] [place] [address] January, [facility] [address] [id number] [facility] [place] [address] January, [facility] [address] [id number] [facility] [place] [address] January, [facility] [address] [facility] [id number] [place] [address] January, [facility] [address] [id number] [place] [address] January, [facility] [address] [id number] [place] [address] January, [facility] [address] [facility] [id number] [facility] [place] [address] January, [facility] [address] [id number] [place] [address] January, [facility] [address] [id number] [place] [address] January, [facility] [address] [id number] [place] [address] Dec, [facility] [address] [facility] [id number] [facility] [place] [address] Dec, [facility] [address] [id number] [place] [address] Dec, [facility] [address] [id number] [place] [address] Dec, [facility] [address] [id number] [facility] [place] [address] Dec, [facility] [address] [facility] [id number] [facility] [place] [address] Dec, [facility] [address] [id number] [facility] [place] [address] Dec, [facility] [address] [id number] [place] [address] Dec, [facility] [address] [id number] [place] [address] Dec, [facility] [address] [facility] [id number] [place] [address] Dec, [facility] [address] [id number] [place] [address] Nov, [facility] [address] [id number] [place] [address] Nov, [facility] [address] [id number] [place] [address] Nov, [facility] [address] [id number] [place] [address] Nov, [facility] [address] [id number] [place] [address] Nov, [facility] [address] [id number] [place] [address] Nov, [facility] [address] [id number] [place] [address] Nov, [facility] [address] [id number] [place] [address] Nov, [facility] [address] [id number] [place] [address] Nov, [facility] [address] [id number] [place] [address] Nov, [facility] [address] [id number] [place] [address] Oct, [facility] [address] [id number] [place] [address] Oct, [facility] [address] [id number] [place] [address] Oct, [facility] [address] [id number] [place] [address] Oct, [facility] [address] [id number] [place] [address] Oct, [facility] [address] [id number] [place] [address] Oct, [facility] [address] [id number] [place] [address] Oct, [facility] [address] [id number] [place] [address] Oct, [facility] [address] [id number] [place] [address] Oct, [facility] [address] [id number] [place] [address] Oct, [facility] [address] [id number] [place] [address] Oct, [facility] [address] [id number] [place] [address] Oct, [facility] [address] [id number] [place] [address] Oct, [facility] [address] [id number] [place] [address] Oct, [facility] [address] [id number] [place] [address] Sep, [facility] [address] [id number] [place] [address] Sep, [facility] [address] [id number] [place] [address] Sep, [facility] [facility] [address] [id number] [place] [address] Sep, [facility] [address] [id number] [place] [address] Sep, [facility] [address] [id number] [place] [address] Sep, [facility] [address] [id number] [place] [address] Sep, [facility] [address] [id number] [place] [address] Sep, [facility] [address] [id number] [place] [address] 08 Sep, 2013 [facility] [address] [id number] [place] [address] 08 Sep, 2013 [facility] [facility] [address] [id number] [place] [address] Aug, [facility] [facility] [address] [id number] [place] [address] Aug, [facility] [address] [id number] [place] [address] Jul, [facility] [facility] [address] [id number] [place] [address] Jul, [facility] [facility] [address] [id number] [place] [address] Jul, [facility] [address] [id number] [place] [address] Jul, [facility] [facility] [address] [id number] [place] [address] Jul, [facility] [facility] [address] [id number] [place] [address] Jul, [facility] [facility] [address] [id number] [place] [address] Jul, [facility] [address] [id number] [place] [address] Jul, [facility] [address] [id number] [place] [address] Jul, [facility] [facility] [address] [id number] [place] [address] Jul, [facility] [facility] [address] [id number] [place] [address] Jul, [facility] [facility] [address] [id number] [place] [address] 06 Jul, 2013 [facility] [facility] [address] [id number] [place] [address] Jul, 2012 [facility] [facility] [address] [id number] [place] [address] Jul, 2012 [facility] [facility] [address] [id number] [place] [address] Jul, 2012 [facility] [facility] [address] [id number] [place] [address] Jul, 2012 [facility] [facility] [address] [id number] [place] [address] Jul, 2012 [facility] [facility] [address] [id number] [place] [address] Jul, 2012 [facility] [facility] [address] [id number] [place] [address] Jul, 2012 [facility] [facility] [address] [id number] [place] [address] Jun, 2012 [facility] [facility] [address] [id number] [place] [address] Jun, 2012 [facility] [facility] [address] [id number] [place] [address] Jun, 2012 [facility] [facility] [address] [id number] [place] [address] Jun, 2012 [facility] [facility] [address] [id number] [place] [address] Jun, 2012 [facility] [facility] [address] [id number] [place] [address] 16 Jun, 2012 [facility] [place] [facility] [address] [id number] [place] [address] 10 Jun, 2012 [facility] [facility] [address] [id number] [place] [address] 10 Jun, 2012 [facility] [place] [facility] [address] [id number] [place] [address] Jun, 2012 [facility] [place] [facility] [address] [id number] [place] [address] Jun, 2012 [facility] [facility] [address] [id number] [place] [address] Jun, [facility] [facility] [address] [id number] [place] [address] May, 2012 [facility] [facility] [address] [id number] [place] [address] May, [facility] [facility] [address] [id number] [place] [address] May, 2012 [facility] [facility] [address] [id number] [place] [address] 17 May, 2012 [facility] [facility] [address] [id number] [place] [address] May, [facility] [facility] [address] [id number] [place] [address] May, [facility] [place] [facility] [address] [id number] [place] [address] May, [facility] [place] [facility] [address] [id number] [place] [address] May, [facility] [facility] [address] [id number] [place] [address] Apr, [facility] [facility] [address] [id number] [place] [address] Apr, [facility] [facility] [address] [id number] [place] [address] Apr, [facility] [address] [id number] [place] [address] Apr, [facility] [address] [id number] [place] [address] Apr, [facility] [address] [id number] [place] [address] Mar, [facility] [address] [id number] [place] [address] Mar, [facility] [address] [id number] [place] [address] Mar, [facility] [address] [id number] [place] [address] Mar, [facility] [facility] [address] [id number] [place] [address] Mar, [facility] [facility] [address] [id number] [place] [address] Mar, [facility] [facility] [address] [id number] [place] [address] Mar, [facility] [address] [id number] [place] [address] Mar, [facility] [address] [id number] [place] [address] Feb, [facility] [address] [id number] [place] [address] Feb, [facility] [address] [id number] [place] [address] January, [facility] [address] [id number] [place] [address] January, [facility] [address] [id number] [place] [address] Dec, [facility] [address] [id number] [place] [address] Dec, [facility] [address] [id number] [place] [address] Nov, [facility] [address] [id number] [place] [address] Nov, [facility] [address] [id number] [place] [address] Nov, [facility] [address] [id number] [place] [address] Nov, [facility] [address] [id number] [place] [address] Oct, [facility] [address] [id number] [place] [address] Oct, [facility] [address] [id number] [place] [address] Oct, [facility] [address] [id number] [place] [address] Oct, [facility] [address] [id number] [place] [address] 16 Oct, 2012 [facility] [address] [id number] [place] [address] 14 Oct, 2012 [facility] [address] [id number] [place] [address] 08 Oct, 2012 [facility] [address] [id number] [place] [address] 07 Oct, 2012 [facility] [address] [id number] [place] [address] Oct, [facility] [address] [id number] [place] [address] Sep, [facility] [address] [id number] [place] [address] Sep, [facility] [address] [id number] [place] [address] Sep, [facility] [address] [id number] [place] [address] Sep, [facility] [address] [id number] [place] [address] Sep, [facility] [address] [id number] [place] [address] Sep, [facility] [address] [place] [id number] [place] [address] Sep, [facility] [address] [id number] [place] [address] Sep, [facility] [address] [id number] [place] [address] Aug, [facility] [address] [id number] [place] [address] Aug, [facility] [address] [id number] [place] [address] Aug, [facility] [address] [id number] [place] [address] Aug, [facility] [address] [id number] [place] [address] Aug, [facility] [address] [id number] [place] [address] Aug, [facility] [address] [id number] [place] [address] Aug, [facility] [address] [id number] [place] [address] Aug, [facility] [address] [place] [id number] [place] [address] Jul, [facility] [address] [id number] [place] [address] Jul, [facility] [address] [id number] [place] [address] Jul, [facility] [address] [id number] [place] [address] Jul, [facility] [address] [id number] [place] [address] Jul, [facility] [address] [id number] [place] [address] Jul, [facility] [address] [id number] [place] [address] Jun, [facility] [address] [place] [id number] [place] [address] Jun, [facility] [address] [id number] [place] [address] Jun, [facility] [address] [id number] [place] [address] Jun, [facility] [address] [facility] [id number] [place] [address] Jun, [facility] [address] [facility] [id number] [facility] [place] [address] Jun, [facility] [address] [id number] [place] [address] Jun, [facility] [address] [id number] [place] [address] Jun, [facility] [address] [facility] [id number] [place] [address] Jun, [facility] [address] [id number] [place] [address] 26 May, 2012 [facility] [address] [id number] [place] [address] 24 May, 2012 [facility] [address] [id number] [place] [address] May, [facility] [address] [id number] [place] [address] 30 Apr, 2012 [facility] [address] [id number] [place] [address] Apr, [facility] [address] [id number] [place] [address] Apr, [facility] [address] [id number] [place] [address] Apr, [facility] [address] [facility] [id number] [place] [address] Apr, [facility] [address] [facility] [id number] [place] [address] Apr, [facility] [address] [id number] [place] [address] Mar, [facility] [address] [id number] [place] [address] Mar, [facility] [place] [facility] [address] [id number] [place] [address] Mar, [facility] [place] [facility] [address] [id number] [place] [address] Mar, [facility] [place] [facility] [address] [id number] [place] [address] Feb, [facility] [place] [facility] [address] [id number] [place] [address] Feb, [facility] [place] [facility] [address] [id number] [place] [address] Feb, [facility] [place] [facility] [address] [id number] [place] [address] Feb, [facility] [place] [facility] [address] [id number] [place] [address] Feb, [facility] [place] [facility] [address] [id number] [place] [address] January, [facility] [place] [facility] [address] [id number] [place] [address] January, [facility] [place] [facility] [address] [id number] [place] [address] January, [facility] [place] [facility] [address] [id number] [place] [address] January, [facility] [place] [facility] [address] [id number] [place] [address] January, [facility] [place] [facility] [address] [id number] [place] [address] January, [facility] [place] [facility] [address] [id number] [place] [address] Dec, [facility] [place] [facility] [address] [id number] [place] [address] Dec, [facility] [place] [facility] [address] [id number] [place] [address] Dec, [facility] [place] [facility] [address] [id number] [place] [address] Dec, [facility] [place] [facility] [address] [id number] [place] [address] Dec, [facility] [place] [facility] [address] [id number] [place] [address] 27 Nov, 2011 [facility] [place] [facility] [address] [id number] [place] [address] 14 Nov, 2011 [facility] [place] [facility] [address] [id number] [place] [address] Nov, [facility] [place] [facility] [address] [id number] [place] [address] 07 Nov, 2011 [facility] [place] [facility] [address] [id number] [place] [address] 29 Oct, 2011 [facility] [place] [facility] [address] [id number] [place] [address] 28 Oct, 2011 [facility] [place] [facility] [address] [id number] [place] [address] 24 Oct, 2011 [facility] [place] [facility] [address] [id number] [place] [address] 13 Oct, 2011 [facility] [place] [facility] [address] [id number] [place] [address] 08 Oct, 2011 [facility] [place] [facility] [address] [id number] [place] [address] Sep, [facility] [place] [facility] [address] [id number] [place] [address] Sep, [facility] [place] [facility] [address] [id number] [place] [address] Sep, [facility] [place] [facility] [address] [id number] [place] [address] Sep, [facility] [place] [facility] [address] [id number] [place] [address] Sep, [facility] [place] [facility] [address] [id number] [place] [address] Sep, [facility] [place] [facility] [address] [id number] [place] [address] Aug, [facility] [place] [facility] [address] [facility] [id number] [facility] [address] Aug, [facility] [place] [facility] [address] [facility] [id number] [place] [address] Aug, [facility] [place] [facility] [address] [id number] [place] [address] Jul, [facility] [place] [facility] [address] [id number] [place] [address] Jul, [facility] [place] [facility] [address] [facility] [id number] [facility] [place] [address] Jul, [facility] [place] [facility] [address] [id number] [place] [address] Jul, [facility] [place] [facility] [address] [id number] [place] [address] Jun, [facility] [place] [facility] [address] [id number] [place] [address] Jun, [facility] [place] [facility] [address] [id number] [place] [address] Jun, [facility] [place] [facility] [address] [id number] [place] [address] Jun, [facility] [place] [facility] [address] [id number] [place] [address] Jun, [facility] [place] [facility] [address] [id number] [place] [address] Jun, [facility] [place] [facility] [address] [id number] [place] [address] Mar, [facility] [place] [facility] [address] [id number] [place] [address] Dec, [facility] [place] [facility] [address] [id number] [place] [address] Dec, [facility] [place] [facility] [address] [id number] [place] [address] Nov, [facility] [place] [facility] [address] [id number] [place] [address] 16 Nov, 2010 [facility] [place] [facility] [address] [id number] [place] [address] 10 Sep, 2010 [facility] [place] [facility] [address] [id number] [place] [address] 31 Aug, 2010 [facility] [place] [facility] [address] [id number] [place] [address] 29 Aug, 2010 [facility] [place] [facility] [address] [id number] [place] [address] 29 Aug, 2010 [facility] [place] [facility] [address] [id number] [place] [address] 29 Aug, 2010 [facility] [place] [facility] [address] [id number] [place] [address] 27 Aug, 2010 [facility] [place] [facility] [address] [id number] [place] [address] 14 Aug, 2010 [facility] [place] [facility] [address] [id number] [place] [address] 08 Aug, 2010 [facility] [place] [facility] [address] [id number] [place] [address] 08 Aug, 2010 [facility] [place] [facility] [address] [id number] [place] [address] 07 Aug, 2010 [facility] [place] [facility] [address] [id number] [place] [address] 06 Aug, 2010 [facility] [place] [facility] [address] [id number] [place] [address] 06 Aug, 2010 [facility] [place] [facility] [address] [id number] [place] [address] Aug, [facility] [place] [facility] [address] [id number] [place] [address] 30 Jul, 2010 [facility] [place] [facility] [address] [id number] [place] [address] Jul, [facility] [place] [facility] [address] [id number] [place] [address] 30 Jul, 2010 [facility] [place] [facility] [address] [id number] [place] [address] Jul, [facility] [place] [facility] [address] [id number] [place] [address] Jul, [facility] [place] [facility] [address] [id number] [place] [address] Jul, [facility] [place] [facility] [address] [id number] [place] [address] Jun, [facility] [place] [facility] [address] [id number] [place] [address] Jun, [facility] [place] [facility] [address] [id number] [place] [address] Jun, [facility] [place] [facility] [address] [id number] [place] [address] Jun, [facility] [place] [facility] [address] [id number] [place] [address] 16 Apr, 2010 [facility] [place] [facility] [address] [id number] [place] [address] Mar, [facility] [place] [facility] [address] [id number] [place] [address] Feb, [facility] [place] [facility] [address] [id number] [place] [address] January, [facility] [place] [facility] [address] [id number] [place] [address] Dec, [facility] [place] [facility] [address] [id number] [place] [address] Nov, [facility] [place] [facility] [address] [id number] [place] [address] Aug, [facility] [place] [facility] [address] [id number] [place] [address] Aug, [facility] [place] [facility] [address] [id number] [place] [address] 07 Aug, 2009 [facility] [place] [facility] [address] [id number] [place] [address] Jul, [facility] [address] [id number] [place] [address] Jul, [facility] [address] [id number] [place] [address] Jul, [facility] [address] [id number] [place] [address] Jun, [facility] [id number] [place] [address] Jun, [facility] [address] [id number] [place] [address] Jun, [facility] [id number] [place] [address] Jun, [facility] [address] [id number] [place] [address] Jun, [facility] [id number] [place] [address] Jun, [facility] [address] [id number] [place] [address] Apr, [facility] [id number] [place] [address] Apr, [facility] [address] [id number] [place] [address] Feb, [facility] [id number] [place] [address] January, [facility] [address] [id number] [place] [address] Dec, IMMUNIZATIONS No Known Immunizations SOCIAL HISTORY Never Assessed REASON FOR VISIT PLAN OF CARE VITAL SIGNS MEDICATIONS Unknown Medications RESULTS No Results PROCEDURES Procedure Date Ordered Result Body Site BLOOD PRESSURE, MEASURED February 24, 2014 INSTRUCTIONS MEDICATIONS ADMINISTERED No Known Medications MEDICAL (GENERAL) HISTORY Type Description Date Medical History type II diabetes Medical History coronary artery disease stress test Medical History chronic obstructive pulmonary disease (C OPD) Medical History gastroesophageal reflux disease (GERD) Medical History acute renal failure Medical History erectile dysfunction Medical History hyperlipidemia Medical History obesity Medical History skin cancer-basal cell R holiness (removed ) Medical History Arthritis Medical History [...] 2009 Surgical History colonoscopy 2009 ([facility]), 2013 ([place] ) Surgical History heart cath: CAD w/ [...] History inability to urinate 09/16/15 Hospitalization History [facility] inpatient mental health ea rly 2000's Hospitalization History hyperkalemia 10/2017 Hospitalization History fluid in lung
--- OUTSIDE RECORDS SUMMARY | 2020-03-01 16:58 | XMS REPORT ---
Author Author Michele Verduzco Doctor Organization [facility] Address Unknown Phone Unavailable Care Team Providers Care Biblical Languages Professor Name Role Phone Migration, Doctor Unavailable Unavailable PROBLEMS Type Condition ICD9-CM Code BIF21-QB Code Onset Dates Condition S tatus SNOMED Code Problem DM neuro manif type II E11.49 Active 85306904 Problem Chronic pain G89.29 Active 6818691 1 Problem Diabetes E11.9 Active 78156281 Problem Reactive airway disease J45.909 Active 154728034667 Problem Leukocytosis D72.829 Active 2170261 06 Problem Insomnia, unspecified type G47.00 Act sharon 071554373 Problem Bipolar I disorder, most recent episode (or curr ent) mixed, moderate F31.62 Active 99633004 Problem Primary osteoarthritis of right knee M17.11 Active 924247192640903 Problem Cough R05 Active 95355575 Problem Pure hypercholesterolemia E78.00 Acti ve 258397253 Problem Dysuria R30.0 Active 04354599 Problem Benign prostatic hyperplasia with lower urinary tract symptoms, unspecified morphology N40.1 Active 87375 6007 Problem Eustachian tube dysfunction, unspecified laterality H69.80 Active 37246447 Problem Polyneuropathy associated with underlying disease G63 Active 555795021 Problem Diabetic polyneuropathy associated with type 2 d iabetes mellitus E11.42 Active 42504036 Problem Retinal edema H35.81 Active 552114 6 Problem Chronic lymphocytic leukemia C91.10 A ctive 89567190 Problem Bilateral primary osteoarthritis of knee M17.0 Active 057849095 Problem Anemia of chronic illness D63.8 Acti ve 369257147 Problem Eye exam abnormal R93.8 Active 16 0660945 Problem 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 Active 515043326 Problem Lymphocytosis D72.820 Active 154540 09 Problem Bipolar disorder, in partial remission, most rec ent episode depressed F31.75 Active 46049020 Problem Hypokalemia E87.6 Active 18764264 Problem Falling R29.6 Active 864771227 Problem Pressure ulcer of other site, stage 3 L89.893 Active 102326450 Problem Other iron deficiency anemia D50.8 A ctive 55995980 Problem Mild cognitive impairment G31.84 Acti ve 330004419 Problem Skin cancer C44.90 Active 92187713 7 Problem Type 2 diabetes mellitus with diabetic neuropathy, uns pecified E11.40 Active 98713552 Problem Morbid obesity E66.01 Active 04531 6002 Problem Mood disorder F39 Active 400011 05 Problem Anxiety F41.9 Active 74915274 Problem Essential hypertension I10 Active 46375691 Problem Bipolar disorder F31.9 Active 137 13973 Problem Chronic diastolic (congestive) heart failure I50.3 2 Active 562717294 Problem Psychophysiological insomnia F51.04 A ctive 660353568 Problem 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 Active 901365908 ALLERGIES No Information ENCOUNTERS Encounter Location Date Diagnosis [place] [address] [address] Oct, [place] [address] [address] Sep, [place] [address] [address] Sep, [place] [address] [address] Sep, Bipolar disorder, in partial remission, most recent episode depressed F31.75 and Mild cognitive impairment G31.84 [place] [address] [address] Sep, Mood disorder F39 [facility] [address] [address] Sep, [facility] [address] [address] Sep, Mood disorder F39 [facility] [address] [address] Sep, [facility] [address] [address] Aug, Mood disorder F39 [place] [address] [place] [id number] [place] [address] Aug, [facility] [address] [place] [id number] [place] [address] Aug, [facility] [address] [place] [id number] [place] [address] Aug, [facility] [address] [id number] [place] [address] Aug, [facility] [address] [id number] [place] [address] Aug, [facility] [address] [id number] [place] [address] Aug, [facility] [address] [id number] [place] [address] Aug, [facility] [address] [place] [id number] [place] [address] Aug, Essential hypertension I10 [facility] [address] [address] Aug, Bipolar disorder, in partial remission, most recent episode depressed F31.75 and Mild cognitive impairment G31.84 [facility] [address] [address] Aug, Mood disorder F39 [facility] [address] [address] Aug, [facility] [address] [address] Aug, Bipolar disorder, in partial remission, most recent episode depressed F31.75 and Mild cognitive impairment G31.84 [facility] [address] [address] Jul, Bipolar disorder, in partial remission, most recent episode depressed F31.75 and Mild cognitive impairment G31.84 [facility] [address] [address] Jul, Psychophysiological insomnia F51.04 [facility] [address] [id number] [place] [address] Jul, [facility] [address] [place] [id number] [place] [address] Jul, [facility] [address] [place] [address] [id number] [place] [address] Jul, [facility] [address] [place] [id number] [place] [address] Jul, [facility] [address] [address] Jul, [facility] [address] [address] Jul, [facility] [address] [address] Jul, Bipolar disorder, in partial remission, most recent episode depressed F31.75 and Mild cognitive impairment G31.84 [place] [address] [address] Jul, Chronic pain G89.29 ; Diabetes E11.9 ; E ssential hypertension I10 ; Ill feeling R68.89 ; Local infection of the skin and subcutaneous tissue, unspecified L08.9 and Other injury of unspecified body region, initial encounter T14.8XXA [place] [address] [place] [address] [id number] [place] [address] Jun, Bipolar disorder, in partial remission, most recent episode depressed F31.75 and Mild cognitive impairment G31.84 [facility] [address] [place] [id number] [place] [address] Jun, [facility] [address] [address] Jun, Bipolar disorder, in partial remission, most recent episode depressed F31.75 and Mild cognitive impairment G31.84 [facility] [address] [place] [id number] [place] [address] Jun, Psychophysiological insomnia F51.04 [facility] [address] [address] Jun, Psychophysiological insomnia F51.04 ; Ch ronic pain G89.29 ; Bipolar I disorder, most recent episode (or current) mixed, moderate F31.62 ; 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 ; Polyneuropathy associated with underlying disease G63 ; Type 2 diabetes mellitus with diabetic neuropathy, unspecified E11.40 ; custodial (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 Z79.4 and Hyperglycemia R73.9 [place] [address] [address] Jun, Bipolar disorder, in partial remission, most recent episode depressed F31.75 and Mild cognitive impairment G31.84 [place] [address] [address] Jun, [address] [address] Jun, Bipolar disorder F31.9 [place] [address] [address] May, Bipolar disorder, in partial remission, most recent episode depressed F31.75 and Mild cognitive impairment G31.84 [place] [address] [address] May, [address] [address] Apr, Chronic pain G89.29 and Bipolar disorder F31.9 [place] [address] [address] Mar, Bipolar disorder F31.9 and Chronic pain G89.29 [place] [address] [address] Feb, Bipolar disorder F31.9 [place] [address] [address] Feb, Cellulitis of right upper extremity L03. 113 and Skin abrasion T14.8XXA [place] [address] [place] [address] Feb, Bipolar disorder, in partial remission, most recent episode depressed F31.75 and Mild cognitive impairment G31.84 [facility] [address] [place] [id number] [place] [address] Feb, Chronic pain G89.29 [facility] [address] [place] [id number] [place] [address] Feb, Bipolar disorder, in partial remission, most recent episode depressed F31.75 and Mild cognitive impairment G31.84 [facility] [address] [address] January, Bipolar disorder, in partial remission, most recent episode depressed F31.75 and Mild cognitive impairment G31.84 [facility] [address] [address] January, Chronic pain G89.29 and Bipolar disorder F31.9 [facility] [address] [address] January, Bipolar disorder, in partial remission, most recent episode depressed F31.75 and Mild cognitive impairment G31.84 [facility] [address] [address] Dec, [facility] [address] [address] Dec, Chronic pain G89.29 and Bipolar disorder F31.9 [facility] [address] [address] Dec, Edema of both lower extremities R60.0 [facility] [address] [place] [id number] [place] [address] Dec, Bipolar disorder F31.9 [facility] [address] [address] Dec, Bipolar disorder, in partial remission, most recent episode depressed F31.75 and Mild cognitive impairment G31.84 [facility] [address] [address] Nov, [address] [address] Nov, Chronic pain G89.[address] [address] Nov, Bipolar disorder, in partial remission, most recent episode depressed F31.75 and Mild cognitive impairment G31.[address] [address] Nov, Bipolar disorder F31.[address] [address] Nov, Encounter for Medicare annual wellness e [...] morphology N40.1 and Essential hypertension I10 [address] [address] Oct, Chronic pain G89.[address] [address] Oct, Diabetes E11.[address] [address] Oct, Bipolar I disorder, most recent episode (or current) mixed, moderate F31.62 and Mild cognitive impairment G31.[address] [address] Oct, Bipolar I disorder, most recent episode (or current) mixed, moderate F31.62 and Mild cognitive impairment G31.[address] [address] Sep, Bipolar I disorder, most recent episode (or current) mixed, moderate F31.62 and Mild cognitive impairment G31.84 [place] [address] [address] Sep, [place] [address] [address] Sep, Diabetes E11.9 ; Hypoxia R09.02 ; Hyperg lycemia R73.9 ; Therapeutic drug monitoring Z51.81 ; BMI 50.0-59.9, adult Z68.43 and Skin cancer C44.90 [place] [address] [address] Sep, Chronic pain G89.29 [place] [address] [address] Sep, Bipolar I disorder, most recent episode (or current) mixed, moderate F31.62 [place] [address] [address] Sep, [place] [address] [address] Sep, [place] [address] [address] Aug, Chronic pain G89.[address] [address] Aug, Bipolar I disorder, most recent episode (or current) mixed, moderate F31.62 [place] [address] [address] Aug, Bipolar I disorder, most recent episode (or current) mixed, moderate F31.62 and Mild cognitive impairment G31.84 [place] [address] [address] Jul, [place] [address] [address] Jul, Chronic pain G89.29 [place] [address] [place] [id number] [place] [address] Jul, Bipolar I disorder, most recent episode (or current) mixed, moderate F31.62 and Mild cognitive impairment G31.84 [place] [address] [address] Jul, Bipolar I disorder, most recent episode (or current) mixed, moderate F31.62 and MCI (mild cognitive impairment) G31.84 [place] [address] [address] Jul, [place] [address] [address] Jul, [place] [address] [address] Jul, Bipolar I disorder, most recent episode (or current) mixed, moderate F31.62 [place] [id number] [place] [address] Jul, Chronic pain G89.29 [place] [address] [address] Jun, Bipolar I disorder, most recent episode (or current) mixed, moderate F31.62 [place] [id number] [place] [address] Jun, Pre-procedure lab exam Z01.812 [place] [id number] [place] [address] Jun, [id number] [place] [id number] Jun, [address] [address] Jun, [address] [address] Jun, Forgetfulness R68.89 ; Pre-syncope R55 ; Localized edema R60.0 ; Other iron deficiency anemia D50.8 and BMI 50.0-59.9, adult Z68.43 [place] [address] [address] Jun, Chronic pain G89.29 [place] [address] [address] Jun, Chronic pain G89.29 [place] [address] [address] Jun, Bipolar I disorder, most recent episode (or current) mixed, moderate F31.62 [place] [address] [address] May, Chronic pain G89.29 [place] [address] [address] Apr, [place] [address] [address] Apr, Chronic pain G89.29 [place] [address] [address] Apr, Primary osteoarthritis of right knee M17 .11 [place] [address] [address] Mar, [place] [address] [address] Mar, BMI 50.0-59.9, adult Z68.43 and Bipolar disorder, in partial remission, most recent episode depressed F31.75 [place] [address] [address] Mar, Diabetes E11.9 ; Pure hypercholesterolem ia E78.00 ; Essential hypertension I10 ; Nausea with vomiting, unspecified R11.2 and Headache, unspecified headache type R51 [place] [address] [address] Mar, Bipolar I disorder, most recent episode (or current) mixed, moderate F31.62 [place] [address] [address] Mar, Bipolar I disorder, most recent episode (or current) mixed, moderate F31.62 [place] [address] [address] Mar, Chronic pain G89.29 [facility] [address] [address] Mar, Bipolar I disorder, most recent episode (or current) mixed, moderate F31.62 [place] [address] [address] Feb, Bipolar I disorder, most recent episode (or current) mixed, moderate F31.62 [place] [address] [address] Feb, Chronic pain G89.29 [place] [address] [address] Feb, Decubitus ulcer of right foot, stage 3 L 89.893 and BMI 50.0-59.9, adult Z68.43 [place] [address] [address] Feb, Bipolar I disorder, most recent episode (or current) mixed, moderate F31.62 [place] [address] [address] Feb, [place] [address] [address] January, [place] [address] [address] January, Chronic pain G89.29 [facility] [address] [address] January, Bipolar I disorder, most recent episode (or current) mixed, moderate F31.62 [place] [address] [address] January, Bipolar I disorder, most recent episode (or current) mixed, moderate F31.62 [place] [address] [address] Dec, Bipolar I disorder, most recent episode (or current) mixed, moderate F31.62 and BMI 50.0-59.9, adult Z68.43 [place] [address] [address] Dec, Bipolar I disorder, most recent episode (or current) mixed, moderate F31.62 [place] [address] [address] Dec, Chronic pain G89.29 [place] [address] [address] Dec, DM neuro manif type II E11.49 ; Right fl ank pain R10.9 ; custodial 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 Z79.891 ; Encounter for medication monitoring Z51.81 and BMI 50.0-59.9, adult Z68.43 [place] [address] [address] Dec, Bipolar I disorder, most recent episode (or current) mixed, moderate F31.62 [place] [address] [address] Nov, Bipolar I disorder, most recent episode (or current) mixed, moderate F31.62 [place] [address] [address] Nov, Chronic pain G89.29 [place] [address] [address] Nov, Bipolar I disorder, most recent episode (or current) mixed, moderate F31.62 [place] [address] [address] Nov, Hypokalemia E87.6 [place] [address] [address] Nov, Bipolar I disorder, most recent episode (or current) mixed, moderate F31.62 [place] [address] [address] Oct, Chronic pain G89.29 [place] [address] [address] Oct, BMI 50.0-59.9, adult Z68.43 and Bipolar I disorder, most recent episode (or current) mixed, moderate F31.62 [place] [address] [address] Oct, Bipolar I disorder, most recent episode (or current) mixed, moderate F31.62 [place] [address] [address] Oct, [place] [address] [address] Oct, Hypokalemia E87.6 [place] [address] [address] Oct, DM neuro manif type II E11.49 [place] [address] [address] Oct, Bipolar I disorder, most recent episode (or current) mixed, moderate F31.62 [place] [address] [address] Oct, Bipolar I disorder, most recent episode (or current) mixed, moderate F31.62 [place] [address] [address] Oct, Hyperkalemia E87.5 ; Falling R29.6 ; BMI 50.0-59.9, adult Z68.43 and Acute left ankle pain M25.572 [place] [address] [address] Oct, DM neuro manif type II E11.49 [place] [address] [address] Oct, [place] [address] [address] Sep, Chronic pain G89.29 [place] [address] [address] Sep, [place] [address] [address] Sep, Bilateral primary osteoarthritis of knee M17.0 [place] [address] [address] Sep, Generalized edema R60.1 [place] [address] [address] Sep, Bipolar I disorder, most recent episode (or current) mixed, moderate F31.62 [place] [address] [address] Sep, Hypoxia R09.02 ; Other hypervolemia E87. 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 ; Anemia of chronic illness D63.8 and BMI 50.0-59.9, adult Z68.43 [place] [address] [address] Sep, [address] [address] Sep, Bipolar I disorder, most recent episode (or current) mixed, moderate F31.62 [place] [address] [address] Aug, Chronic pain G89.29 [place] [address] [address] Aug, Generalized edema R60.1 [place] [address] [address] Aug, [place] [address] [address] Aug, [place] [address] [address] 14 Aug, 2017 Bipolar I disorder, most recent episode (or current) mixed, moderate F31.62 [place] [address] [place] [address] Aug, Bipolar I disorder, most recent episode (or current) mixed, moderate F31.62 [place] [address] [place] [address] Aug, Chronic pain G89.29 [place] [address] [place] [address] Jul, Bipolar I disorder, most recent episode (or current) mixed, moderate F31.62 [place] [address] Jul, Bipolar I disorder, most recent episode (or current) mixed, moderate F31.62 and BMI 60.0-69.9, adult Z68.[address] [address] Jul, Bipolar I disorder, most recent episode (or current) mixed, moderate F31.[address] [address] Jul, Chronic pain G89.[address] [address] Jul, Bipolar I disorder, most recent episode (or current) mixed, moderate F31.62 [place] [address] [address] Jun, Polyneuropathy associated with underlyin g disease G63 and Diabetes E11.[address] [address] Jun, Bipolar I disorder, most recent episode (or current) mixed, moderate F31.[address] [address] Jun, Chronic pain G89.29 [place] [address] [place] [address] 27 May, 2017 Bipolar I disorder, most recent episode (or current) mixed, moderate F31.62 [facility] [address] [address] 21 May, 2017 Bipolar I disorder, most recent episode (or current) mixed, moderate F31.62 [facility] [address] [address] 20 May, 2017 Diabetic polyneuropathy associated with type 2 diabetes mellitus E11.42 [facility] [address] [address] 18 May, 2017 Bipolar I disorder, most recent episode (or current) mixed, moderate F31.62 [place] [address] [address] 13 May, 2017 Bipolar I disorder, most recent episode (or current) mixed, moderate F31.62 [place] [address] [address] 12 May, 2017 Chronic pain G89.29 [facility] [address] [address] 30 Apr, 2017 Bipolar I disorder, most recent episode (or current) mixed, moderate F31.62 [facility] [address] [address] Apr, [facility] [address] [address] Apr, Chronic pain G89.29 and DM neuro manif t ype II E11.49 [facility] [address] [address] Apr, [facility] [address] [address] 16 Apr, 2017 Bipolar I disorder, most recent episode (or current) mixed, moderate F31.62 [facility] [address] [address] 14 Apr, 2017 Chronic pain G89.29 [facility] [address] [address] Apr, Iliotibial band syndrome, left M76.32 [facility] [address] [address] Apr, Bipolar I disorder, most recent episode (or current) mixed, moderate F31.62 [facility] [address] [address] Mar, Bipolar I disorder, most recent episode (or current) mixed, moderate F31.62 [place] [address] [address] Mar, Bipolar I disorder, most recent episode (or current) mixed, moderate F31.62 [place] [address] [address] Mar, [place] [address] [address] Mar, Bipolar I disorder, most recent episode (or current) mixed, moderate F31.62 [place] [address] [address] Mar, Chronic pain G89.29 [facility] [address] [address] Mar, Bipolar I disorder, most recent episode (or current) mixed, moderate F31.62 [facility] [address] [address] Mar, Bipolar I disorder, most recent episode (or current) mixed, moderate F31.62 [facility] [address] [address] Mar, Acute pain of left knee M25.562 ; Left h ip pain M25.552 ; Generalized edema R60.1 and Tongue swelling R22.0 [facility] [address] [address] Mar, [facility] [address] [address] Feb, Chronic pain G89.29 [facility] [address] [address] Feb, Diabetes E11.9 [facility] [address] [address] January, Chronic pain G89.29 [facility] [address] [address] January, [facility] [address] [address] January, Bipolar I disorder, most recent episode (or current) mixed, moderate F31.62 [place] [address] [address] Dec, Bipolar I disorder, most recent episode (or current) mixed, moderate F31.62 [place] [address] [address] Dec, Chronic pain G89.29 [place] [address] [address] Dec, Bipolar I disorder, most recent episode (or current) mixed, moderate F31.62 [place] [address] [address] Dec, Diabetes E11.9 ; Essential hypertension I10 ; Chronic pain G89.29 and Morbid obesity E66.01 [facility] [address] [address] Dec, [place] [address] [address] Dec, Bipolar I disorder, most recent episode (or current) mixed, moderate F31.62 [place] [address] [address] Dec, Bipolar I disorder, most recent episode (or current) mixed, moderate F31.62 [place] [address] [address] Nov, Chronic pain G89.29 [facility] [address] [address] Nov, Bipolar I disorder, most recent episode (or current) mixed, moderate F31.62 [facility] [address] [address] Nov, [facility] [address] [address] Nov, Bipolar I disorder, most recent episode (or current) mixed, moderate F31.62 [facility] [address] [address] Nov, Bipolar I disorder, most recent episode (or current) mixed, moderate F31.62 [facility] [address] [address] Nov, [facility] [address] [address] Nov, [facility] [address] [address] Nov, [facility] [address] [address] Oct, Chronic pain G89.29 [facility] [address] [address] Oct, Bipolar I disorder, most recent episode (or current) mixed, moderate F31.62 [facility] [address] [address] Oct, [facility] [address] [address] Oct, Chronic pain G89.29 ; Diabetes E11.9 ; A nxiety F41.9 and 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 [facility] [address] [address] Oct, [facility] [address] [address] Oct, Diabetes E11.9 [facility] [address] [place] [id number] Oct, Bipolar I disorder, most recent episode (or current) mixed, moderate F31.62 [facility] [address] [address] Sep, Chronic pain G89.29 [facility] [address] [address] Sep, Chronic pain G89.29 [place] [address] [address] Aug, Chronic pain G89.29 [place] [address] [address] Jul, [place] [address] [address] Jul, Diabetes E11.9 [facility] [address] [address] Jul, Chronic pain G89.29 [place] [address] [address] Jul, Bipolar I disorder, most recent episode (or current) mixed, moderate F31.62 [place] [address] [address] Jun, Bipolar I disorder, most recent episode (or current) mixed, moderate F31.62 [place] [address] [address] Jun, [place] [address] [address] Jun, Bipolar I disorder, most recent episode (or current) mixed, moderate F31.62 [place] [address] [address] May, Insomnia, unspecified type G47.00 [facility] [address] [address] May, Bipolar I disorder, most recent episode (or current) mixed, moderate F31.62 [facility] [address] [address] May, [facility] [address] [address] May, Bipolar I disorder, most recent episode (or current) mixed, moderate F31.62 [place] [address] [address] May, Diabetes E11.9 and Essential hypertensio n I10 [place] [address] [address] Apr, Chronic pain G89.29 [place] [address] [address] Apr, Bipolar I disorder, most recent episode (or current) mixed, moderate F31.62 [place] [address] [address] Apr, [place] [address] [address] Apr, [place] [address] [address] Mar, Chronic pain G89.29 ; Headache, unspecif ied headache type R51 ; Neuropathy G62.9 ; Pain of right hip joint M25.551 and Essential hypertension I10 [facility] [address] [address] Mar, Chronic pain G89.29 [place] [address] [address] Mar, Bipolar I disorder, most recent episode (or current) mixed, moderate F31.62 [place] [address] [address] Feb, Bipolar I disorder, most recent episode (or current) mixed, moderate F31.62 and Insomnia, unspecified type G47.00 [place] [address] [address] Feb, Chronic pain G89.29 [facility] [address] [address] Feb, Bipolar I disorder, most recent episode (or current) mixed, moderate F31.62 [place] [address] [address] January, Bipolar I disorder, most recent episode (or current) mixed, moderate F31.62 [place] [address] [address] January, Chronic pain G89.29 [place] [address] [address] January, Chronic pain G89.29 and Essential hypert ension I10 [place] [address] [address] January, Bipolar I disorder, most recent episode (or current) mixed, moderate F31.62 [place] [address] [address] Dec, [place] [address] [address] Dec, [place] [address] [address] Dec, [place] [address] [address] Dec, [place] [address] [address] Nov, Reactive airway disease J45.909 [place] [address] [address] Nov, [place] [address] [address] Nov, [place] [address] [address] Nov, [place] [address] [address] Nov, [place] [address] [address] Nov, Onychomycosis B35.1 ; Hammertoe M20.40 ; [place] or callus L84 and DM neuro manif type II E11.49 [place] [address] [address] Nov, Chronic pain G89.29 ; Leukocytosis D72.8 29 and Diabetes E11.9 [place] [address] [address] Nov, [place] [address] [address] Oct, Bronchitis J40 [place] [address] [address] Oct, [place] [address] [address] Oct, [place] [address] [address] Oct, Mastoiditis, unspecified laterality H70. 90 and Type 2 diabetes mellitus with complication E11.8 [place] [address] [address] Sep, [address] [address] Sep, Dysuria R30.0 ; Cough R05 ; Benign prost atic hyperplasia with lower urinary tract symptoms, unspecified morphology N40.1 ; Hypokalemia E87.6 and Eustachian tube dysfunction, unspecified laterality H69.80 [place] [address] [address] Sep, Moderate mixed bipolar I disorder F31.62 [facility] [address] [address] Sep, Hypokalemia E87.6 [facility] [address] [address] Sep, [facility] [address] [address] Sep, Upper respiratory tract infection, unspe cified type J06.9 [facility] [address] [address] Aug, [facility] [address] [address] Aug, Dysuria R30.0 [facility] [address] [address] Aug, [facility] [address] [address] Jul, [facility] [address] [address] Jul, [facility] [address] [address] Jul, [facility] [address] [address] Jul, [facility] [address] [address] Jun, [facility] [address] [address] Jun, [facility] [address] [address] Jun, [facility] [address] [address] 29 May, 2015 [facility] [address] [address] May, Bipolar I disorder, most recent episode (or current) mixed, moderate 296.62 [facility] [address] [address] May, [facility] [address] [address] May, Bipolar I disorder, most recent episode (or current) mixed, moderate 296.62 and Major depressive disorder, recurrent episode, severe, specified as with psychotic behavior 296.34 [facility] [address] [address] May, Bipolar I disorder, most recent episode (or current) mixed, moderate 296.62 [facility] [address] [address] May, [facility] [address] [address] Apr, [facility] [address] [address] Apr, [facility] [address] [address] Apr, Unspecified disorder of kidney and urete r 593.9 and Diabetes mellitus type 2, uncontrolled 250.02 [facility] [address] [address] Apr, [facility] [address] [address] Apr, [facility] [address] [address] Apr, [facility] [address] [address] Apr, [facility] [address] [address] Apr, Diabetes mellitus type II, uncontrolled 250.02 [facility] [address] [address] Apr, [facility] [address] [address] Mar, [facility] [address] [address] Mar, [facility] [address] [address] Mar, [facility] [address] [address] Mar, Major depressive disorder, recurrent epi sode, severe, specified as with psychotic behavior 296.34 and Bipolar I disorder, most recent episode (or current) mixed, moderate 296.62 [facility] [address] [address] Mar, Diabetes 250.00 ; Anuria 788.5 ; Nausea and vomiting 787.01 and Diarrhea 787.91 [place] [address] [address] Mar, Diabetes 250.00 [place] [address] [address] Mar, [facility] [address] [address] Mar, Diabetes 250.00 [facility] [address] [address] Mar, [facility] [address] [address] Mar, [facility] [address] [address] Mar, [facility] [address] [address] Mar, [facility] [address] [address] Mar, Bipolar I disorder, most recent episode (or current) mixed, moderate 296.62 and Major depressive disorder, recurrent episode, severe, specified as with psychotic behavior 296.34 [facility] [address] [address] Mar, Magnesium deficiency 275.2 ; Hypokalemia 276.8 ; Nausea & vomiting 787.01 and Diabetes mellitus type 2, uncontrolled 250.02 [place] [address] [address] Feb, [place] [address] [address] Feb, Bipolar I disorder, most recent episode (or current) mixed, moderate 296.62 [place] [address] [address] Feb, Nausea and vomiting 787.01 ; Left elbow pain 719.42 ; Anuria 788.5 and Diabetes 250.00 [place] [address] [address] Feb, [address] [address] Feb, Hypopotassemia 276.8 and Hypokalemia 276 .8 [place] [address] [address] Feb, Hypopotassemia 276.8 and Hypokalemia [address] [address] Feb, Seborrheic keratoses 702.[address] [address] Feb, Hypopotassemia 276.8 and Low magnesium l evels 275.2 [place] [address] [address] January, [place] [address] [address] January, [address] [address] January, [place] [address] [address] January, Scalp lesion 709.[id number] [place] [address] January, [facility] [address] [id number] [place] [address] Dec, Tear of medial cartilage or meniscus of knee, current 836.0 and 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 [facility] [id number] [place] [address] Dec, [facility] [id number] [place] [address] Dec, [facility] [id number] [place] [address] Dec, Squamous cell carcinoma, 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 42 [facility] [id number] [place] [address] Dec, [facility] [id number] [place] [address] Dec, [facility] [id number] [place] [address] Nov, [facility] [id number] [place] [address] Nov, [facility] [id number] [place] [address] Nov, [facility] [id number] [place] [address] Nov, [facility] [id number] [place] [address] Nov, [facility] [address] [id number] [place] [address] Nov, [facility] [id number] [place] [address] Nov, [facility] [id number] [place] [address] Nov, [facility] [id number] [place] [address] Nov, [facility] [address] [id number] [place] [address] Nov, [facility] [address] [id number] [facility] [place] [address] Nov, [facility] [address] [id number] [place] [address] Nov, [facility] [address] [id number] [place] [address] Oct, 2014 [facility] [address] [facility] [id number] [place] [address] Oct, 2014 [facility] [address] [id number] [place] [address] Oct, 2014 [facility] [address] [id number] [place] [address] Oct, 2014 [facility] [address] [id number] [place] [address] Oct, 2014 [facility] [address] [id number] [place] [address] Oct, 2014 [facility] [address] [id number] [place] [address] Oct, [facility] [address] [id number] [place] [address] Oct, 2014 [facility] [address] [id number] [place] [address] Oct, [facility] [address] [id number] [place] [address] Sep, [facility] [address] [id number] [place] [address] Sep, [facility] [address] [id number] [place] [address] Sep, [facility] [address] [id number] [place] [address] Sep, [facility] [address] [id number] [place] [address] Sep, [facility] [address] [id number] [place] [address] Sep, [facility] [address] [id number] [place] [address] Sep, [facility] [address] [id number] [place] [address] Sep, [facility] [address] [id number] [place] [address] Sep, [facility] [address] [id number] [place] [address] Sep, [facility] [address] [id number] [place] [address] Sep, [facility] [address] [id number] [place] [address] Sep, [facility] [address] [id number] [place] [address] Sep, [facility] [address] [id number] [place] [address] Sep, [facility] [address] [id number] [place] [address] Sep, [facility] [address] [id number] [place] [address] Sep, [facility] [address] [id number] [place] [address] Aug, [facility] [address] [id number] [place] [address] Aug, [facility] [address] [id number] [place] [address] Aug, [facility] [address] [id number] [place] [address] Aug, [facility] [address] [id number] [place] [address] Aug, [facility] [address] [facility] [id number] [place] [address] Aug, [facility] [address] [facility] [id number] [place] [address] Aug, [facility] [address] [id number] [place] [address] Aug, [facility] [address] [id number] [place] [address] Aug, [facility] [address] [facility] [id number] [place] [address] Aug, [facility] [address] [id number] [place] [address] Aug, Via [facility] [address] [place] [id number] Aug, [facility] [address] [id number] [place] [address] Aug, [facility] [address] [id number] [place] [address] Aug, [facility] [address] [id number] [place] [address] Aug, [facility] [address] [id number] [place] [address] Aug, [facility] [address] [id number] [place] [address] Aug, [facility] [address] [id number] [place] [address] Aug, [facility] [address] [facility] [id number] [place] [address] Aug, [facility] [address] [facility] [id number] [place] [address] Aug, [facility] [address] [id number] [place] [address] Aug, [facility] [address] [id number] [place] [address] Aug, [facility] [address] [id number] [place] [address] Aug, [facility] [address] [id number] [place] [address] Aug, [facility] [address] [id number] [place] [address] Aug, [facility] [address] [id number] [place] [address] Aug, [facility] [address] [id number] [place] [address] Aug, [facility] [address] [id number] [place] [address] Aug, [facility] [address] [id number] [place] [address] Aug, [facility] [address] [id number] [place] [address] Aug, [facility] [address] [id number] [place] [address] Jul, [facility] [address] [id number] [place] [address] Jul, [facility] [address] [id number] [place] [address] Jul, [facility] [address] [id number] [place] [address] Jul, [facility] [address] [id number] [place] [address] Jul, [facility] [address] [id number] [place] [address] Jul, [facility] [address] [id number] [place] [address] Jul, [facility] [address] [id number] [place] [address] Jul, [facility] [address] [id number] [place] [address] Jul, [facility] [address] [id number] [place] [address] Jul, [facility] [address] [id number] [place] [address] Jun, [facility] [address] [id number] [place] [address] Jun, [facility] [address] [id number] [place] [address] Jun, [facility] [address] [id number] [place] [address] Jun, [facility] [address] [id number] [place] [address] Jun, [facility] [address] [id number] [place] [address] Jun, [facility] [address] [id number] [place] [address] Jun, [facility] [address] [id number] [place] [address] Jun, [facility] [address] [id number] [place] [address] Jun, [facility] [address] [id number] [place] [address] Jun, [facility] [place] [facility] [address] [id number] [place] [address] 29 May, 2013 [facility] [place] [facility] [address] [id number] [place] [address] 29 Sep, 2013 [facility] [place] [facility] [id number] [place] [address] 26 May, 2013 [facility] [place] [facility] [address] [id number] [place] [address] 26 Sep, 2013 [facility] [place] [facility] [address] [id number] [place] [address] 17 May, 2013 [facility] [place] [facility] [address] [id number] [place] [address] 17 May, 2013 [facility] [place] [facility] [address] [id number] [place] [address] 15 May, 2013 [facility] [place] [facility] [address] [facility] [id number] [place] [address] 15 May, 2013 [facility] [place] [facility] [address] [id number] [place] [address] 15 May, 2013 [facility] [place] [facility] [address] [facility] [id number] [place] [address] 15 May, 2013 [facility] [place] [facility] [address] [id number] [place] [address] 10 May, 2013 [facility] [place] [facility] [address] [id number] [place] [address] 10 May, 2013 [facility] [place] [facility] [address] [id number] [place] [address] 09 May, 2013 [facility] [place] [facility] [address] [id number] [place] [address] 09 May, 2013 [facility] [place] [facility] [address] [id number] [place] [address] 04 May, 2013 [facility] [place] [facility] [address] [id number] [place] [address] May, 2013 [facility] [place] [facility] [address] [id number] [place] [address] Apr, [facility] [place] [facility] [address] [id number] [place] [address] Apr, [facility] [place] [facility] [address] [id number] [place] [address] Apr, [facility] [place] [facility] [address] [id number] [place] [address] Apr, [facility] [place] [facility] [address] [id number] [place] [address] Apr, 2013 [facility] [place] [facility] [address] [id number] [place] [address] Apr, [facility] [place] [facility] [address] [id number] [facility] [place] [address] Apr, [facility] [place] [facility] [address] [facility] [id number] [place] [address] Apr, [facility] [place] [facility] [address] [facility] [id number] [facility] [place] [address] Apr, [facility] [place] [facility] [address] [facility] [id number] [place] [address] Apr, [facility] [place] [facility] [address] [facility] [id number] [place] [address] Apr, [facility] [place] [facility] [address] [facility] [id number] [place] [address] Apr, [facility] [place] [facility] [address] [id number] [facility] [place] [address] Apr, [facility] [place] [facility] [address] [id number] [facility] [place] [address] Apr, [facility] [place] [facility] [address] [facility] [id number] [facility] [place] [address] Apr, [facility] [place] [facility] [address] [facility] [id number] [facility] [place] [address] Mar, [facility] [place] [facility] [address] [id number] [facility] [place], [place] [address] Mar, [facility] [place] [facility] [address] [id number] [place] [address] Mar, [facility] [place] [facility] [address] [facility] [id number] [facility] [place] [address] Mar, [facility] [place] [facility] [address] [id number] [place] [address] Mar, [facility] [place] [facility] [address] [facility] [id number] [facility] [place] [address] Mar, [facility] [place] [facility] [address] [id number] [place] [address] Mar, [facility] [place] [facility] [address] [facility] [id number] [place] [address] Mar, 2013 [facility] [place] [facility] [address] [facility] [id number] [place] [address] Mar, 2013 [facility] [place] [facility] [address] [facility] [id number] [place] [address] Mar, 2013 [facility] [place] [facility] [address] [id number] [place] [address] Mar, 2013 [facility] [place] [facility] [address] [id number] [place] [address] Mar, 2013 [facility] [place] [facility] [address] [facility] [id number] [place] [address] Mar, 2013 [facility] [place] [facility] [address] [id number] [place] [address] Mar, 2013 [facility] [place] [facility] [address] [id number] [place] [address] Mar, 2013 [facility] [place] [facility] [address] [id number] [place] [address] Mar, 2013 [facility] [place] [facility] [address] [id number] [place] [address] Mar, 2013 [facility] [place] [facility] [address] [id number] [place] [address] Mar, 2013 [facility] [place] [facility] [address] [id number] [place] [address] Feb, [facility] [place] [facility] [address] [id number] [place] [address] Feb, [facility] [place] [facility] [address] [id number] [place] [address] Feb, [facility] [place] [facility] [address] [id number] [place] [address] Feb, [facility] [place] [facility] [address] [id number] [place] [address] Feb, [facility] [place] [facility] [address] [id number] [place] [address] Feb, [facility] [place] [facility] [address] [id number] [place] [address] Feb, [facility] [place] [facility] [address] [facility] [id number] [place] [address] Feb, [facility] [place] [facility] [address] [facility] [id number] [place] [address] Feb, [facility] [place] [facility] [address] [id number] [place] [address] Feb, [facility] [place] [facility] [address] [facility] [id number] [facility] [place] [address] Feb, [facility] [place] [facility] [address] [id number] [place] [address] Feb, [facility] [place] [facility] [address] [id number] [place] [address] Feb, [facility] [place] [facility] [address] [id number] [place] [address] Feb, [facility] [place] [facility] [address] [id number] [place] [address] January, [facility] [place] [facility] [address] [id number] [place] [address] January, [facility] [place] [facility] [address] [id number] [place] [address] January, [facility] [place] [facility] [address] [id number] [place] [address] January, [facility] [place] [facility] [address] [id number] [place] [address] January, [facility] [place] [facility] [address] [facility] [id number] [place] [address] January, [facility] [place] [facility] [address] [id number] [place] [address] January, [facility] [place] [facility] [address] [id number] [place] [address] January, [facility] [place] [facility] [address] [id number] [place] [address] January, [facility] [place] [facility] [address] [facility] [id number] [place] [address] January, [facility] [place] [facility] [address] [facility] [id number] [place] [address] January, [facility] [place] [facility] [address] [id number] [place] [address] January, [facility] [place] [facility] [address] [id number] [place] [address] January, [facility] [place] [facility] [address] [facility] [id number] [facility] [place] [address] January, [facility] [place] [facility] [address] [id number] [place] [address] Dec, [facility] [place] [facility] [address] [id number] [place] [address] Dec, [facility] [place] [facility] [address] [id number] [place] [address] Dec, [facility] [place] [facility] [address] [id number] [place] [address] Dec, [facility] [place] [facility] [address] [id number] [place] [address] Dec, [facility] [place] [facility] [address] [id number] [place] [address] Dec, [facility] [place] [facility] [address] [id number] [place] [address] Dec, [facility] [place] [facility] [address] [facility] [id number] [place] [address] Dec, [facility] [place] [facility] [address] [id number] [place] [address] Dec, [facility] [place] [facility] [address] [id number] [place] [address] Dec, [facility] [place] [facility] [address] [id number] [place] [address] Nov, [facility] [place] [facility] [address] [id number] [place] [address] Nov, [facility] [place] [facility] [address] [facility] [id number] [place] [address] Nov, [facility] [place] [facility] [address] [id number] [place] [address] Nov, [facility] [place] [facility] [address] [id number] [place] [address] Nov, [facility] [place] [facility] [address] [id number] [place] [address] Nov, [facility] [place] [facility] [address] [facility] [id number] [place] [address] Nov, [facility] [place] [facility] [address] [id number] [place] [address] Nov, [facility] [place] [facility] [address] [id number] [place] [address] Nov, [facility] [place] [facility] [address] [id number] [place] [address] Nov, [facility] [place] [facility] [address] [id number] [place] [address] Oct, [facility] [place] [facility] [address] [id number] [place] [address] Oct, [facility] [place] [facility] [address] [id number] [place] [address] Oct, [facility] [place] [facility] [address] [id number] [place] [address] Oct, [facility] [place] [facility] [address] [id number] [place] [address] Oct, [facility] [place] [facility] [address] [id number] [place] [address] Oct, [facility] [place] [facility] [address] [id number] [place] [address] 14 Oct, 2013 [facility] [place] [facility] [address] [id number] [place] [address] Oct, [facility] [place] [facility] [address] [facility] [id number] [facility] [place] [address] Oct, [facility] [place] [facility] [address] [facility] [id number] [facility] [place] [address] Oct, [facility] [place] [facility] [address] [id number] [facility] [place] [address] Oct, [facility] [place] [facility] [address] [facility] [id number] [facility] [place] [address] Oct, [facility] [place] [facility] [address] [facility] [id number] [facility] [place] [address] Oct, [facility] [place] [facility] [address] [id number] [place] [address] Oct, [facility] [place] [facility] [address] [id number] [place] [address] Sep, [facility] [place] [facility] [address] [id number] [place] [address] Sep, [facility] [place] [facility] [address] [id number] [place] [address] Sep, [facility] [place] [facility] [address] [id number] [place] [address] Sep, [facility] [place] [facility] [address] [id number] [place] [address] Sep, [facility] [place] [facility] [address] [id number] [place] [address] Sep, [facility] [place] [facility] [address] [id number] [place] [address] Sep, [facility] [place] [facility] [address] [id number] [place] [address] Sep, [facility] [place] [facility] [address] [id number] [place] [address] Sep, [facility] [place] [facility] [address] [id number] [place] [address] Sep, [facility] [place] [facility] [address] [id number] [place] [address] 10 Aug, 2013 [facility] [place] [facility] [address] [id number] [place] [address] Aug, [facility] [place] [facility] [address] [id number] [place] [address] Jul, [facility] [place] [facility] [address] [id number] [place] [address] Jul, [facility] [place] [facility] [address] [id number] [place] [address] Jul, [facility] [place] [facility] [address] [id number] [place] [address] Jul, [facility] [place] [facility] [address] [id number] [place] [address] Jul, [facility] [place] [facility] [address] [id number] [place] [address] Jul, [facility] [place] [facility] [address] [id number] [place] [address] Jul, [facility] [place] [facility] [address] [id number] [place] [address] Jul, [facility] [place] [facility] [address] [id number] [place] [address] Jul, [facility] [place] [facility] [address] [id number] [place] [address] Jul, [facility] [place] [facility] [address] [id number] [place] [address] Jul, [facility] [place] [facility] [address] [id number] [place] [address] Jul, [facility] [place] [facility] [address] [id number] [place] [address] Jul, [facility] [place] [facility] [address] [id number] [place] [address] Jul, [facility] [place] [facility] [address] [id number] [place] [address] 05 Jul, 2013 [facility] [place] [facility] [address] [id number] [place] [address] Jul, 2012 [facility] [place] [facility] [address] [id number] [place] [address] Jul, 2012 [facility] [place] [facility] [address] [id number] [place] [address] Jul, 2012 [facility] [place] [facility] [address] [id number] [place] [address] Jul, 2012 [facility] [place] [facility] [address] [id number] [place] [address] Jun, 2012 [facility] [place] [facility] [address] [id number] [place] [address] Jun, 2012 [facility] [place] [facility] [address] [id number] [place] [address] Jun, 2012 [facility] [place] [facility] [address] [id number] [place] [address] Jun, 2012 [facility] [place] [facility] [address] [id number] [place] [address] Jun, 2012 [facility] [place] [facility] [address] [id number] [place] [address] Jun, 2012 [facility] [place] [facility] [address] [id number] [place] [address] Jun, 2012 [facility] [place] [facility] [address] [id number] [place] [address] Jun, 2012 [facility] [place] [facility] [address] [id number] [place] [address] Jun, 2012 [facility] [place] [facility] [address] [id number] [place] [address] Jun, 2012 [facility] [place] [facility] [address] [id number] [place] [address] Jun, 2012 [facility] [place] [facility] [address] [id number] [place] [address] May, 2012 [facility] [place] [facility] [address] [id number] [facility] [place] [address] 25 May, 2012 [facility] [place] [facility] [address] [id number] [facility] [place] [address] 19 May, 2012 [facility] [place] [facility] [address] [facility] [id number] [facility] [place] [address] 17 May, 2012 [facility] [place] [facility] [address] [id number] [facility] [place] [address] 11 May, 2012 [facility] [place] [facility] [address] [id number] [facility] [place] [address] 10 May, 2012 [facility] [place] [facility] [address] [facility] [id number] [place] [address] 09 May, 2012 [facility] [place] [facility] [address] [id number] [facility] [place] [address] 05 May, 2012 [facility] [place] [facility] [address] [id number] [place] [address] Apr, [facility] [place] [facility] [address] [id number] [place] [address] Apr, [facility] [place] [facility] [address] [id number] [facility] [place] [address] Apr, [facility] [place] [facility] [address] [id number] [place] [address] Apr, [facility] [place] [facility] [address] [id number] [place] [address] Apr, [facility] [place] [facility] [address] [id number] [facility] [place] [address] Mar, [facility] [place] [facility] [address] [facility] [id number] [facility] [place] [address] Mar, [facility] [place] [facility] [address] [id number] [place] [address] Mar, [facility] [place] [facility] [address] [id number] [place] [address] Mar, [facility] [place] [facility] [address] [id number] [place] [address] Mar, [facility] [place] [facility] [address] [id number] [place] [address] Mar, [facility] [place] [facility] [address] [id number] [place] [address] Mar, [facility] [place] [facility] [address] [id number] [place] [address] Mar, [facility] [place] [facility] [address] [id number] [place] [address] Feb, [facility] [place] [facility] [address] [id number] [place] [address] Feb, [facility] [place] [facility] [address] [id number] [place] [address] January, [facility] [place] [facility] [address] [id number] [place] [address] January, [facility] [place] [facility] [address] [id number] [place] [address] Dec, [facility] [place] [facility] [address] [id number] [place] [address] Dec, [facility] [place] [facility] [address] [id number] [place] [address] Nov, [facility] [place] [facility] [address] [id number] [place] [address] Nov, [facility] [place] [facility] [address] [id number] [place] [address] Nov, [facility] [place] [facility] [address] [id number] [place] [address] Nov, [facility] [place] [facility] [address] [id number] [place] [address] Oct, [facility] [place] [facility] [address] [id number] [place] [address] Oct, [facility] [place] [facility] [address] [id number] [place] [address] Oct, [facility] [place] [facility] [address] [id number] [place] [address] 26 Oct, 2012 [facility] [place] [facility] [address] [facility] [id number] [facility] [place] [address] 16 Oct, 2012 [facility] [place] [facility] [address] [id number] [facility] [place] [address] 14 Oct, 2012 [facility] [place] [facility] [address] [id number] [place] [address] 08 Oct, 2012 [facility] [place] [facility] [address] [id number] [place] [address] 07 Oct, 2012 [facility] [address] [id number] [place] [address] 03 Oct, 2012 [facility] [address] [id number] [place] [address] 30 Sep, 2012 [facility] [address] [id number] [place] [address] Sep, [facility] [address] [id number] [place] [address] Sep, [facility] [address] [id number] [place] [address] Sep, [facility] [address] [id number] [place] [address] Sep, [facility] [address] [id number] [place] [address] Sep, [facility] [address] [id number] [place] [address] Sep, [facility] [address] [id number] [place] [address] 08 Sep, 2012 [facility] [address] [id number] [place] [address] Aug, [facility] [address] [id number] [place] [address] Aug, [facility] [address] [id number] [place] [address] Aug, [facility] [address] [id number] [place] [address] Aug, [facility] [address] [id number] [place] [address] Aug, [facility] [address] [id number] [place] [address] Aug, [facility] [address] [id number] [place] [address] Aug, [facility] [address] [id number] [place] [address] Aug, [facility] [address] [id number] [place] [address] Jul, [facility] [address] [id number] [place] [address] Jul, [facility] [address] [id number] [place] [address] Jul, [facility] [address] [id number] [place] [address] Jul, [facility] [address] [id number] [place] [address] Jul, [facility] [address] [id number] [place] [address] Jul, [facility] [address] [id number] [place] [address] Jun, [facility] [address] [id number] [place] [address] Jun, [facility] [address] [id number] [place] [address] Jun, [facility] [id number] [place] [address] Jun, [facility] [address] [id number] [place] [address] Jun, [facility] [address] [id number] [place] [address] Jun, [facility] [address] [id number] [place] [address] Jun, [facility] [address] [id number] [place] [address] Jun, [facility] [address] [id number] [place] [address] Jun, [facility] [address] [id number] [place] [address] 26 May, 2012 [facility] [address] [id number] [place] [address] 24 May, 2012 [facility] [address] [id number] [place] [address] 18 May, 2012 [facility] [address] [id number] [place] [address] Apr, [facility] [address] [id number] [place] [address] Apr, [facility] [address] [id number] [place] [address] Apr, [facility] [address] [id number] [place] [address] Apr, [facility] [address] [id number] [place] [address] Apr, [facility] [address] [id number] [place] [address] Apr, [facility] [address] [id number] [place] [address] Mar, [facility] [address] [id number] [place] [address] Mar, [facility] [address] [id number] [place] [address] Mar, [facility] [address] [id number] [place] [address] Mar, [facility] [address] [id number] [place] [address] Feb, [facility] [address] [facility] [id number] [facility] [place] [address] Feb, [facility] [address] [id number] [facility] [place] [address] Feb, [facility] [address] [id number] [facility] [place] [address] Feb, [facility] [address] [id number] [place] [address] Feb, [facility] [address] [facility] [id number] [facility] [place] [address] January, [facility] [address] [id number] [place] [address] January, [facility] [address] [id number] [place] [address] January, [facility] [address] [id number] [place] [address] January, [facility] [facility] [address] [id number] [place] [address] January, [facility] [address] [id number] [place] [address] January, [facility] [address] [id number] [place] [address] Dec, [facility] [address] [id number] [place] [address] Dec, [facility] [address] [id number] [facility] [place] [address] Dec, [facility] [address] [id number] [place] [address] Dec, [facility] [address] [id number] [place] [address] Dec, [facility] [address] [id number] [place] [address] Nov, [facility] [address] [id number] [place] [address] 14 Nov, 2011 [facility] [address] [id number] [place] [address] 12 Nov, 2011 [facility] [address] [id number] [place] [address] 07 Nov, 2011 [facility] [address] [id number] [place] [address] 29 Oct, 2011 [facility] [address] [id number] [place] [address] 28 Oct, 2011 [facility] [address] [id number] [place] [address] 24 Oct, 2011 [facility] [address] [id number] [place] [address] 13 Oct, 2011 [facility] [address] [id number] [place] [address] 08 Oct, 2011 [facility] [address] [id number] [place] [address] Sep, [facility] [address] [id number] [place] [address] Sep, [facility] [address] [id number] [place] [address] Sep, [facility] [address] [id number] [place] [address] Sep, [facility] [address] [id number] [place] [address] 05 Sep, 2011 [facility] [address] [id number] [place] [address] Sep, [facility] [address] [id number] [place] [address] Aug, [facility] [address] [id number] [place] [address] Aug, [facility] [address] [id number] [place] [address] Aug, [facility] [address] [id number] [place] [address] Jul, [facility] [address] [id number] [place] [address] Jul, [facility] [address] [id number] [place] [address] Jul, [facility] [address] [id number] [place] [address] Jul, [facility] [address] [facility] [id number] [place] [address] Jun, [facility] [address] [id number] [place] [address] Jun, [facility] [address] [id number] [place] [address] Jun, [facility] [address] [id number] [place] [address] Jun, [facility] [address] [id number] [place] [address] Jun, [facility] [address] [id number] [place] [address] Jun, [facility] [address] [id number] [place] [address] Mar, [facility] [address] [id number] [place] [address] Dec, [facility] [address] [id number] [place] [address] Dec, [facility] [address] [id number] [place] [address] Nov, [facility] [address] [id number] [place] [address] 16 Nov, 2010 [facility] [address] [id number] [place] [address] Sep, [facility] [address] [id number] [place] [address] 31 Aug, 2010 [facility] [address] [id number] [place] [address] 29 Aug, 2010 [facility] [address] [id number] [place] [address] 29 Aug, 2010 [facility] [address] [id number] [place] [address] 29 Aug, 2010 [facility] [address] [id number] [place] [address] 27 Aug, 2010 [facility] [address] [id number] [place] [address] 14 Aug, 2010 [facility] [address] [id number] [place] [address] 08 Aug, 2010 [facility] [address] [id number] [place] [address] 08 Aug, 2010 [facility] [address] [id number] [place] [address] 07 Aug, 2010 [facility] [address] [id number] [place] [address] 06 Aug, 2010 [facility] [address] [id number] [place] [address] 06 Aug, 2010 [facility] [address] [id number] [place] [address] Aug, [facility] [address] [id number] [place] [address] 30 Jul, 2010 [facility] [address] [id number] [place] [address] 30 Jul, 2010 [facility] [id number] [place] [address] 30 Jul, 2010 [facility] [address] [id number] [place] [address] 17 Jul, 2010 [facility] [address] [id number] [place] [address] 08 Jul, 2010 [facility] [address] [id number] [place] [address] Jul, [facility] [address] [id number] [place] [address] Jun, [facility] [address] [id number] [place] [address] Jun, [facility] [address] [id number] [place] [address] Jun, [facility] [address] [id number] [place] [address] Jun, [facility] [address] [id number] [place] [address] Apr, [facility] [address] [id number] [place] [address] Mar, [facility] [address] [id number] [place] [address] Feb, [facility] [address] [id number] [place] [address] January, [facility] [address] [id number] [place] [address] Dec, [facility] [address] [id number] [place] [address] Nov, [facility] [address] [id number] [place] [address] Aug, [facility] [address] [id number] [place] [address] Aug, [facility] [address] [id number] [place] [address] 07 Aug, 2009 [facility] [address] [id number] [place] [address] 12 Jul, 2009 [facility] [address] [id number] [place] [address] 09 Jul, 2009 [facility] [address] [id number] [place] [address] Jul, [facility] [address] [id number] [place] [address] Jun, [facility] [address] [id number] [place] [address] Jun, [facility] [address] [id number] [place] [address] Jun, [facility] [id number] [place] [address] Jun, [facility] [id number] [place] [address] Jun, [facility] [id number] [place] [address] Jun, [facility] [id number] [place] [address] Apr, [facility] [id number] [place] [address] Apr, [facility] [address] [id number] [place] [address] Feb, [facility] [id number] [place] [address] January, [facility] [address] [id number] [place] [address] Dec, IMMUNIZATIONS No Known Immunizations SOCIAL HISTORY [...] Medical History skin cancer-basal cell R yazidism (removed ) Medical History Arthritis Medical History [...] History inability to urinate 09/16/15 Hospitalization History [facility] inpatient mental health ea rly 2000's Hospitalization History hyperkalemia 10/2017 Hospitalization History fluid in lung
--- OUTSIDE RECORDS SUMMARY | 2020-03-01 16:58 | XMS REPORT ---
Author Author Michele WASHBURN Organization [facility] Address [address] [place] [address] Care Team Providers Care Editor & Co Founder Name Role Phone NOEMI WASHBURN Unavailable PROBLEMS Type Condition ICD9-CM Code DID51-OW Code Onset Dates Condition S tatus SNOMED Code Problem DM neuro manif type II E11.49 Active 35757285 Problem Chronic pain G89.29 Active 7733696 1 Problem Diabetes E11.9 Active 21676751 Problem Reactive airway disease J45.909 Active 115142465430 Problem Leukocytosis D72.829 Active 6987864 06 Problem Insomnia, unspecified type G47.00 Act sharon 984654964 Problem Bipolar I disorder, most recent episode (or curr ent) mixed, moderate F31.62 Active 96200453 Problem Primary osteoarthritis of right knee M17.11 Active 216094680133209 Problem Cough R05 Active 37031489 Problem Pure hypercholesterolemia E78.00 Acti ve 607276400 Problem Dysuria R30.0 Active 09871377 Problem Benign prostatic hyperplasia with lower urinary tract symptoms, unspecified morphology N40.1 Active 94962 6007 Problem Eustachian tube dysfunction, unspecified laterality H69.80 Active 92961541 Problem Polyneuropathy associated with underlying disease G63 Active 341060331 Problem Diabetic polyneuropathy associated with type 2 d iabetes mellitus E11.42 Active 89317836 Problem Anemia of chronic illness D63.8 Acti ve 974419563 Problem Chronic lymphocytic leukemia C91.10 A ctive 09977034 Problem Bilateral primary osteoarthritis of knee M17.0 Active 424261207 Problem 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 Active 473684643 Problem Eye exam abnormal R93.8 Active 16 5851604 Problem Retinal edema H35.81 Active 160312 6 Problem Lymphocytosis D72.820 Active 274005 09 Problem Bipolar disorder, in partial remission, most rec ent episode depressed F31.75 Active 17935313 Problem Hypokalemia E87.6 Active 25552562 Problem Falling R29.6 Active 591393335 Problem Pressure ulcer of other site, stage 3 L89.893 Active 763366764 Problem Other iron deficiency anemia D50.8 A ctive 62614343 Problem Mild cognitive impairment G31.84 Acti ve 456572201 Problem Skin cancer C44.90 Active 75379914 7 Problem nursing home (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 Z79.4 Active 792459055 Problem Morbid obesity E66.01 Active 36072 6002 Problem Mood disorder F39 Active 280196 05 Problem Anxiety F41.9 Active 80721872 Problem Essential hypertension I10 Active 56127748 Problem Bipolar disorder F31.9 Active 137 12921 Problem Chronic diastolic (congestive) heart failure I50.3 2 Active 168888213 Problem Psychophysiological insomnia F51.04 A ctive 055586225 Problem Type 2 diabetes mellitus with diabetic neuropathy, uns pecified E11.40 Active 34531507 ALLERGIES No Information ENCOUNTERS Encounter Location Date Diagnosis [place] [address] [address] Oct, [place] [address] [address] Sep, [place] [address] [address] Sep, [place] [address] [address] Sep, Bipolar disorder, in partial remission, most recent episode depressed F31.75 and Mild cognitive impairment G31.84 [facility] [address] [address] Sep, Mood disorder F39 [facility] [address] [address] Sep, [place] [address] [address] Sep, Mood disorder F39 [facility] [address] [address] Sep, [facility] [address] [place] [address] Aug, Mood disorder F39 [facility] [address] [id number] [place] [address] Aug, [facility] [address] [id number] [place] [address] Aug, [facility] [address] [id number] [place] [address] Aug, [facility] [address] [id number] [place] [address] Aug, [facility] [address] [id number] [place] [address] Aug, [facility] [address] [id number] [place] [address] Aug, [facility] [address] [id number] [place] [address] Aug, [facility] [address] [id number] [place] [address] Aug, Essential hypertension I10 [facility] [address] [id number] [place] [address] Aug, Bipolar disorder, in partial remission, most recent episode depressed F31.75 and Mild cognitive impairment G31.84 [facility] [address] [id number] [place] [address] Aug, Mood disorder F39 [facility] [address] [id number] [place] [address] Aug, [facility] [address] [id number] [place] [address] Aug, Bipolar disorder, in partial remission, most recent episode depressed F31.75 and Mild cognitive impairment G31.84 [facility] [address] [id number] [place] [address] Jul, Bipolar disorder, in partial remission, most recent episode depressed F31.75 and Mild cognitive impairment G31.84 [facility] [address] [address] Jul, Psychophysiological insomnia F51.04 [facility] [address] [address] Jul, [facility] [address] [address] Jul, [facility] [address] [address] Jul, [facility] [address] [address] Jul, [facility] [address] [address] Jul, [facility] [address] [address] Jul, [facility] [address] [address] Jul, Bipolar disorder, in partial remission, most recent episode depressed F31.75 and Mild cognitive impairment G31.84 [facility] [address] [address] Jul, Chronic pain G89.29 ; Diabetes E11.9 ; E ssential hypertension I10 ; Ill feeling R68.89 ; Local infection of the skin and subcutaneous tissue, unspecified L08.9 and Other injury of unspecified body region, initial encounter T14.8XXA [facility] [address] [address] Jun, Bipolar disorder, in partial remission, most recent episode depressed F31.75 and Mild cognitive impairment G31.84 [facility] [address] [address] Jun, [facility] [address] [address] Jun, Bipolar disorder, in partial remission, most recent episode depressed F31.75 and Mild cognitive impairment G31.84 [facility] [address] [address] Jun, Psychophysiological insomnia F51.04 [place] [address] [address] Jun, Psychophysiological insomnia F51.04 ; Ch ronic pain G89.29 ; Bipolar I disorder, most recent episode (or current) mixed, moderate F31.62 ; 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 ; Polyneuropathy associated with underlying disease G63 ; Type 2 diabetes mellitus with diabetic neuropathy, unspecified E11.40 ; ocean transportation 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 (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 Z79.4 and Hyperglycemia R73.9 [place] [address] [address] Jun, Bipolar disorder, in partial remission, most recent episode depressed F31.75 and Mild cognitive impairment G31.84 [place] [address] [address] Jun, [place] [address] [address] Jun, Bipolar disorder F31.9 [place] [address] [address] May, Bipolar disorder, in partial remission, most recent episode depressed F31.75 and Mild cognitive impairment G31.84 [place] [address] [address] May, [place] [address] [address] Apr, Chronic pain G89.29 and Bipolar disorder F31.9 [place] [address] [address] Mar, Bipolar disorder F31.9 and Chronic pain G89.29 [place] [address] [address] Feb, Bipolar disorder F31.9 [place] [address] [address] Feb, Cellulitis of right upper extremity L03. 113 and Skin abrasion T14.8XXA [facility] [address] [address] Feb, Bipolar disorder, in partial remission, most recent episode depressed F31.75 and Mild cognitive impairment G31.84 [facility] [address] [address] Feb, Chronic pain G89.29 [facility] [address] [address] Feb, Bipolar disorder, in partial remission, most recent episode depressed F31.75 and Mild cognitive impairment G31.84 [facility] [address] [address] January, Bipolar disorder, in partial remission, most recent episode depressed F31.75 and Mild cognitive impairment G31.84 [place] [address] [address] January, Chronic pain G89.29 and Bipolar disorder F31.9 [facility] [address] [address] January, Bipolar disorder, in partial remission, most recent episode depressed F31.75 and Mild cognitive impairment G31.84 [facility] [address] [address] Dec, [facility] [address] [address] Dec, Chronic pain G89.29 and Bipolar disorder F31.9 [facility] [address] [address] Dec, Edema of both lower extremities R60.0 [facility] [address] [address] Dec, Bipolar disorder F31.9 [facility] [address] [address] Dec, Bipolar disorder, in partial remission, most recent episode depressed F31.75 and Mild cognitive impairment G31.84 [place] [address] [address] Nov, [place] [address] [address] Nov, Chronic pain G89.29 [place] [address] [address] Nov, Bipolar disorder, in partial remission, most recent episode depressed F31.75 and Mild cognitive impairment G31.84 [place] [address] [address] Nov, Bipolar disorder F31.9 [place] [address] [address] Nov, Encounter for Medicare annual wellness e [...] unspecified morphology N40.1 and Essential hypertension I10 [place] [address] [address] Oct, Chronic pain G89.29 [place] [address] [address] Oct, Diabetes E11.9 [place] [address] [address] Oct, Bipolar I disorder, most recent episode (or current) mixed, moderate F31.62 and Mild cognitive impairment G31.84 [place] [address] [address] Oct, Bipolar I disorder, most recent episode (or current) mixed, moderate F31.62 and Mild cognitive impairment G31.84 [place] [address] [address] Sep, Bipolar I disorder, most recent episode (or current) mixed, moderate F31.62 and Mild cognitive impairment G31.84 [place] [address] [address] Sep, [place] [address] [address] Sep, Diabetes E11.9 ; Hypoxia R09.02 ; Hyperg lycemia R73.9 ; Therapeutic drug monitoring Z51.81 ; BMI 50.0-59.9, adult Z68.43 and Skin cancer C44.90 [place] [address] [address] Sep, Chronic pain G89.[address] [address] Sep, Bipolar I disorder, most recent episode (or current) mixed, moderate F31.62 [place] [address] [address] Sep, [place] [address] [address] Sep, [place] [address] [address] Aug, Chronic pain G89.[address] [address] Aug, Bipolar I disorder, most recent episode (or current) mixed, moderate F31.[address] [address] Aug, Bipolar I disorder, most recent episode (or current) mixed, moderate F31.62 and Mild cognitive impairment G31.84 [place] [address] [address] Jul, [address] [address] Jul, Chronic pain G89.29 [facility] [address] [address] Jul, Bipolar I disorder, most recent episode (or current) mixed, moderate F31.62 and Mild cognitive impairment G31.84 [facility] [address] [address] Jul, Bipolar I disorder, most recent episode (or current) mixed, moderate F31.62 and MCI (mild cognitive impairment) G31.84 [facility] [address] [address] Jul, [facility] [address] [address] Jul, [facility] [address] [address] Jul, Bipolar I disorder, most recent episode (or current) mixed, moderate F31.62 [facility] [address] [address] Jul, Chronic pain G89.29 [facility] [address] [address] Jun, Bipolar I disorder, most recent episode (or current) mixed, moderate F31.62 [facility] [address] [address] Jun, Pre-procedure lab exam Z01.812 [facility] [address] [place] [id number] [place] [address] Jun, [facility] [address] [id number] [place] [id number] Jun, [facility] [address] [address] Jun, [facility] [address] [place] [id number] [place] [address] Jun, Forgetfulness R68.89 ; Pre-syncope R55 ; Localized edema R60.0 ; Other iron deficiency anemia D50.8 and BMI 50.0-59.9, adult Z68.43 [place] [address] [address] Jun, Chronic pain G89.29 [place] [address] [address] Jun, Chronic pain G89.29 [place] [address] [address] Jun, Bipolar I disorder, most recent episode (or current) mixed, moderate F31.62 [place] [address] [address] May, Chronic pain G89.29 [place] [address] [address] Apr, [place] [address] [address] Apr, Chronic pain G89.29 [place] [address] [address] Apr, Primary osteoarthritis of right knee M17 .11 [place] [address] [address] Mar, [place] [address] [address] Mar, BMI 50.0-59.9, adult Z68.43 and Bipolar disorder, in partial remission, most recent episode depressed F31.75 [place] [address] [address] Mar, Diabetes E11.9 ; Pure hypercholesterolem ia E78.00 ; Essential hypertension I10 ; Nausea with vomiting, unspecified R11.2 and Headache, unspecified headache type R51 [place] [address] [address] Mar, Bipolar I disorder, most recent episode (or current) mixed, moderate F31.62 [facility] [address] [address] Mar, Bipolar I disorder, most recent episode (or current) mixed, moderate F31.62 [facility] [address] [address] Mar, Chronic pain G89.29 [facility] [address] [address] Mar, Bipolar I disorder, most recent episode (or current) mixed, moderate F31.62 [place] [address] [address] 18 Feb, 2018 Bipolar I disorder, most recent episode (or current) mixed, moderate F31.62 [place] [address] [address] 14 Feb, 2018 Chronic pain G89.29 [place] [address] [address] Feb, Decubitus ulcer of right foot, stage 3 L 89.893 and BMI 50.0-59.9, adult Z68.43 [place] [address] [address] 04 Feb, 2018 Bipolar I disorder, most recent episode (or current) mixed, moderate F31.62 [place] [address] [address] Feb, [place] [address] [address] January, [place] [address] [address] January, Chronic pain G89.29 [facility] [address] [address] January, Bipolar I disorder, most recent episode (or current) mixed, moderate F31.62 [place] [address] [address] January, Bipolar I disorder, most recent episode (or current) mixed, moderate F31.62 [place] [address] [address] Dec, Bipolar I disorder, most recent episode (or current) mixed, moderate F31.62 and BMI 50.0-59.9, adult Z68.43 [place] [address] [address] Dec, Bipolar I disorder, most recent episode (or current) mixed, moderate F31.62 [place] [address] [address] Dec, Chronic pain G89.29 [place] [address] [address] Dec, DM neuro manif type II E11.49 ; Right fl ank pain R10.9 ; nursing home 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 Z79.891 ; Encounter for medication monitoring Z51.81 and BMI 50.0-59.9, adult Z68.43 [place] [address] [address] Dec, Bipolar I disorder, most recent episode (or current) mixed, moderate F31.62 [place] [address] [address] Nov, Bipolar I disorder, most recent episode (or current) mixed, moderate F31.62 [place] [address] [address] Nov, Chronic pain G89.29 [place] [address] [address] Nov, Bipolar I disorder, most recent episode (or current) mixed, moderate F31.62 [place] [address] [address] Nov, Hypokalemia E87.6 [place] [address] [address] Nov, Bipolar I disorder, most recent episode (or current) mixed, moderate F31.62 [facility] [address] [address] Oct, Chronic pain G89.29 [facility] [address] [address] Oct, BMI 50.0-59.9, adult Z68.43 and Bipolar I disorder, most recent episode (or current) mixed, moderate F31.62 [place] [address] [address] Oct, Bipolar I disorder, most recent episode (or current) mixed, moderate F31.62 [place] [address] [address] Oct, [place] [address] [address] Oct, Hypokalemia E87.6 [place] [address] [address] Oct, DM neuro manif type II E11.49 [place] [address] [address] Oct, Bipolar I disorder, most recent episode (or current) mixed, moderate F31.62 [place] [address] [address] Oct, Bipolar I disorder, most recent episode (or current) mixed, moderate F31.62 [place] [address] [address] 14 Oct, 2017 Hyperkalemia E87.5 ; Falling R29.6 ; BMI 50.0-59.9, adult Z68.43 and Acute left ankle pain M25.572 [place] [address] [address] 08 Oct, 2017 DM neuro manif type II E11.49 [place] [address] [address] Oct, [place] [address] [address] Sep, Chronic pain G89.29 [place] [address] [address] Sep, [place] [address] [address] Sep, Bilateral primary osteoarthritis of knee M17.0 [place] [address] [address] Sep, Generalized edema R60.[address] [address] Sep, Bipolar I disorder, most recent episode (or current) mixed, moderate F31.62 [place] [address] [address] Sep, Hypoxia R09.02 ; Other hypervolemia E87. 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 ; Anemia of chronic illness D63.8 and BMI 50.0-59.9, adult Z68.43 [place] [address] [address] Sep, [place] [address] [address] Sep, Bipolar I disorder, most recent episode (or current) mixed, moderate F31.62 [place] [address] [address] Aug, Chronic pain G89.29 [place] [address] [address] Aug, Generalized edema R60.1 [place] [address] [address] Aug, [address] [address] Aug, [place] [address] [place] [address] Aug, Bipolar I disorder, most recent episode (or current) mixed, moderate F31.62 [place] [address] [place] [address] Aug, Bipolar I disorder, most recent episode (or current) mixed, moderate F31.62 [place] [address] [address] Aug, Chronic pain G89.29 [place] [address] [address] Jul, Bipolar I disorder, most recent episode (or current) mixed, moderate F31.62 [place] [address] [address] Jul, Bipolar I disorder, most recent episode (or current) mixed, moderate F31.62 and BMI 60.0-69.9, adult Z68.44 [place] [address] [address] Jul, Bipolar I disorder, most recent episode (or current) mixed, moderate F31.62 [place] [address] [address] Jul, Chronic pain G89.29 [place] [address] [address] Jul, Bipolar I disorder, most recent episode (or current) mixed, moderate F31.62 [place] [address] [address] Jun, Polyneuropathy associated with underlyin g disease G63 and Diabetes E11.9 [place] [address] [address] 16 Jun, 2017 Bipolar I disorder, most recent episode (or current) mixed, moderate F31.62 [place] [address] [address] Jun, Chronic pain G89.29 [place] [address] [address] May, Bipolar I disorder, most recent episode (or current) mixed, moderate F31.62 [place] [address] [address] May, Bipolar I disorder, most recent episode (or current) mixed, moderate F31.62 [place] [address] [address] 20 May, 2017 Diabetic polyneuropathy associated with type 2 diabetes mellitus E11.42 [place] [address] [place] [address] 18 May, 2017 Bipolar I disorder, most recent episode (or current) mixed, moderate F31.62 [place] [address] [address] May, Bipolar I disorder, most recent episode (or current) mixed, moderate F31.62 [place] [address] [address] May, Chronic pain G89.29 [place] [address] [address] Apr, Bipolar I disorder, most recent episode (or current) mixed, moderate F31.62 [place] [address] [address] Apr, [place] [address] [address] Apr, Chronic pain G89.29 and DM neuro manif t ype II E11.49 [place] [address] [address] Apr, [place] [address] [address] Apr, Bipolar I disorder, most recent episode (or current) mixed, moderate F31.62 [place] [address] [address] Apr, Chronic pain G89.29 [facility] [address] [address] Apr, Iliotibial band syndrome, left M76.32 [facility] [address] [address] Apr, Bipolar I disorder, most recent episode (or current) mixed, moderate F31.62 [facility] [address] [address] Mar, Bipolar I disorder, most recent episode (or current) mixed, moderate F31.62 [place] [address] [address] Mar, Bipolar I disorder, most recent episode (or current) mixed, moderate F31.62 [place] [address] [address] Mar, [place] [address] [address] Mar, Bipolar I disorder, most recent episode (or current) mixed, moderate F31.62 [place] [address] [address] Mar, Chronic pain G89.29 [facility] [address] [address] Mar, Bipolar I disorder, most recent episode (or current) mixed, moderate F31.62 [place] [address] [address] Mar, Bipolar I disorder, most recent episode (or current) mixed, moderate F31.62 [place] [address] [address] Mar, Acute pain of left knee M25.562 ; Left h ip pain M25.552 ; Generalized edema R60.1 and Tongue swelling R22.0 [place] [address] [address] Mar, [facility] [address] [address] Feb, Chronic pain G89.29 [facility] [address] [address] Feb, Diabetes E11.9 [facility] [address] [address] January, Chronic pain G89.29 [facility] [address] [address] January, [facility] [address] [address] January, Bipolar I disorder, most recent episode (or current) mixed, moderate F31.62 [place] [address] [address] Dec, Bipolar I disorder, most recent episode (or current) mixed, moderate F31.62 [facility] [place] [address] [address] Dec, Chronic pain G89.29 [facility] [place] [address] [address] Dec, Bipolar I disorder, most recent episode (or current) mixed, moderate F31.62 [facility] [place] [address] [address] [address] Dec, Diabetes E11.9 ; Essential hypertension I10 ; Chronic pain G89.29 and Morbid obesity E66.01 [facility] [address] [address] Dec, [facility] [address] [address] Dec, Bipolar I disorder, most recent episode (or current) mixed, moderate F31.62 [facility] [address] [address] Dec, Bipolar I disorder, most recent episode (or current) mixed, moderate F31.62 [facility] [address] [address] Nov, Chronic pain G89.29 [facility] [address] [address] Nov, Bipolar I disorder, most recent episode (or current) mixed, moderate F31.62 [facility] [address] [address] Nov, [facility] [address] [address] Nov, Bipolar I disorder, most recent episode (or current) mixed, moderate F31.62 [facility] [address] [address] Nov, Bipolar I disorder, most recent episode (or current) mixed, moderate F31.62 [facility] [address] [address] Nov, [facility] [address] [address] Nov, [facility] [address] [address] Nov, [facility] [address] [address] Oct, Chronic pain G89.29 [facility] [address] [address] Oct, Bipolar I disorder, most recent episode (or current) mixed, moderate F31.62 [facility] [address] [address] Oct, [facility] [address] [place] [id number] Oct, Chronic pain G89.29 ; Diabetes E11.9 ; A nxiety F41.9 and 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 [facility] [id number] [place] [address] Oct, [facility] [address] [address] Oct, Diabetes E11.9 [facility] [address] [address] Oct, Bipolar I disorder, most recent episode (or current) mixed, moderate F31.62 [facility] [address] [address] Sep, Chronic pain G89.29 [facility] [address] [address] Sep, Chronic pain G89.29 [facility] [address] [address] Aug, Chronic pain G89.29 [facility] [address] [address] Jul, [facility] [address] [address] Jul, Diabetes E11.9 [facility] [address] [address] Jul, Chronic pain G89.29 [facility] [address] [address] Jul, Bipolar I disorder, most recent episode (or current) mixed, moderate F31.62 [facility] [id number] [place] [address] Jun, Bipolar I disorder, most recent episode (or current) mixed, moderate F31.62 [facility] [address] [address] Jun, [facility] [address] [address] Jun, Bipolar I disorder, most recent episode (or current) mixed, moderate F31.62 [facility] [address] [address] 30 May, 2016 Insomnia, unspecified type G47.00 [place] [address] [address] May, Bipolar I disorder, most recent episode (or current) mixed, moderate F31.62 [place] [address] [address] 14 May, 2016 [place] [address] [address] May, Bipolar I disorder, most recent episode (or current) mixed, moderate F31.62 [place] [address] [address] May, Diabetes E11.9 and Essential hypertensio n I10 [place] [address] [address] Apr, Chronic pain G89.29 [place] [address] [address] Apr, Bipolar I disorder, most recent episode (or current) mixed, moderate F31.62 [place] [address] [address] Apr, [place] [address] [address] Apr, [place] [address] [address] Mar, Chronic pain G89.29 ; Headache, unspecif ied headache type R51 ; Neuropathy G62.9 ; Pain of right hip joint M25.551 and Essential hypertension I10 [place] [address] [address] Mar, Chronic pain G89.29 [place] [address] [address] Mar, Bipolar I disorder, most recent episode (or current) mixed, moderate F31.62 [place] [address] [address] Feb, Bipolar I disorder, most recent episode (or current) mixed, moderate F31.62 and Insomnia, unspecified type G47.00 [place] [address] [address] Feb, Chronic pain G89.29 [place] [address] [address] Feb, Bipolar I disorder, most recent episode (or current) mixed, moderate F31.62 [place] [address] [address] January, Bipolar I disorder, most recent episode (or current) mixed, moderate F31.62 [place] [address] [address] January, Chronic pain G89.29 [place] [address] [address] January, Chronic pain G89.29 and Essential hypert ension I10 [place] [address] [address] January, Bipolar I disorder, most recent episode (or current) mixed, moderate F31.62 [place] [address] [address] Dec, [place] [address] [address] Dec, [place] [address] [address] Dec, [place] [address] [address] Dec, [place] [address] [address] Nov, Reactive airway disease J45.909 [place] [address] [address] Nov, [place] [address] [address] Nov, [place] [address] [address] Nov, [place] [address] [address] Nov, [place] [address] [address] Nov, Onychomycosis B35.1 ; Hammertoe M20.40 ; Four States or callus L84 and DM neuro manif type II E11.[address] [address] Nov, Chronic pain G89.29 ; Leukocytosis D72.8 29 and Diabetes E11.[address] [address] Nov, [place] [address] [address] Oct, Bronchitis J40 [place] [address] [address] Oct, [place] [address] [address] Oct, [place] [address] [address] Oct, Mastoiditis, unspecified laterality H70. 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 ; Hypokalemia E87.6 and Eustachian tube dysfunction, unspecified laterality H69.[id number] [place] [address] Sep, Moderate mixed bipolar I disorder F31.62 [facility] [address] [address] Sep, Hypokalemia E87.6 [facility] [address] [address] Sep, [facility] [address] [address] Sep, Upper respiratory tract infection, unspe cified type J06.9 [facility] [address] [address] Aug, [facility] [address] [address] Aug, Dysuria R30.0 [facility] [address] [address] Aug, [facility] [address] [address] Jul, [facility] [address] [address] Jul, [facility] [address] [address] Jul, [facility] [address] [address] Jul, [facility] [address] [address] Jun, [facility] [address] [address] Jun, [facility] [address] [address] Jun, [facility] [address] [address] May, [facility] [address] [address] May, Bipolar I disorder, most recent episode (or current) mixed, moderate 296.62 [facility] [address] [address] May, [facility] [address] [address] May, Bipolar I disorder, most recent episode (or current) mixed, moderate 296.62 and Major depressive disorder, recurrent episode, severe, specified as with psychotic behavior 296.34 [facility] [address] [address] May, Bipolar I disorder, most recent episode (or current) mixed, moderate 296.62 [facility] [address] [address] May, [facility] [address] [address] Apr, [facility] [address] [address] Apr, [facility] [address] [address] Apr, Unspecified disorder of kidney and urete r 593.9 and Diabetes mellitus type 2, uncontrolled 250.02 [facility] [address] [address] Apr, [facility] [address] [address] Apr, [facility] [address] [address] Apr, [facility] [address] [address] Apr, [facility] [address] [address] Apr, Diabetes mellitus type II, uncontrolled 250.02 [facility] [address] [address] Apr, [facility] [address] [address] Mar, [facility] [address] [address] Mar, [facility] [address] [address] Mar, [facility] [address] [address] Mar, Major depressive disorder, recurrent epi sode, severe, specified as with psychotic behavior 296.34 and Bipolar I disorder, most recent episode (or current) mixed, moderate 296.62 [place] [address] [address] Mar, Diabetes 250.00 ; Anuria 788.5 ; Nausea and vomiting 787.01 and Diarrhea 787.91 [place] [address] [address] Mar, Diabetes 250.00 [facility] [address] [address] Mar, [facility] [address] [address] Mar, Diabetes 250.00 [facility] [address] [address] Mar, [facility] [address] [address] Mar, [facility] [address] [address] Mar, [facility] [address] [address] Mar, [facility] [address] [address] Mar, Bipolar I disorder, most recent episode (or current) mixed, moderate 296.62 and Major depressive disorder, recurrent episode, severe, specified as with psychotic behavior 296.34 [place] [address] [address] Mar, Magnesium deficiency 275.2 ; Hypokalemia 276.8 ; Nausea & vomiting 787.01 and Diabetes mellitus type 2, uncontrolled 250.02 [place] [address] [address] Feb, [place] [address] [address] Feb, Bipolar I disorder, most recent episode (or current) mixed, moderate 296.62 [place] [address] [address] Feb, Nausea and vomiting 787.01 ; Left elbow pain 719.42 ; Anuria 788.5 and Diabetes 250.00 [place] [address] [address] Feb, [place] [address] [address] Feb, Hypopotassemia 276.8 and Hypokalemia [address] [address] Feb, Hypopotassemia 276.8 and Hypokalemia 276 .8 [place] [address] [address] Feb, Seborrheic keratoses 702.19 [place] [address] [address] Feb, Hypopotassemia 276.8 and Low magnesium l evels 275.2 [place] [address] [address] January, [place] [address] [address] January, [place] [address] [address] January, [place] [address] [place] [address] January, Scalp lesion 709.9 [facility] [address] [address] January, [facility] [address] [address] Dec, Tear of medial cartilage or meniscus of knee, current 836.0 and 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 42 [facility] [address] [address] 14 Dec, 2014 [facility] [address] [address] Dec, [facility] [address] [address] Nov, [facility] [address] [address] Nov, [facility] [id number] [place] [address] Nov, [facility] [address] [address] Nov, [facility] [address] [id number] [place] [address] Nov, [facility] [address] [address] Nov, [facility] [id number] [place] [address] Nov, [facility] [address] [address] Nov, [facility] [place] [facility] [address] [id number] [place] [address] Nov, 2014 [facility] [place] [facility] [address] [id number] [place] [address] Nov, [facility] [place] [facility] [address] [id number] [place] [address] Nov, 2014 [facility] [place] [facility] [address] [id number] [place] [address] Nov, 2014 [facility] [place] [facility] [address] [facility] [id number] [place] [address] Oct, 2014 [facility] [place] [facility] [address] [id number] [place] [address] Oct, 2014 [facility] [place] [facility] [address] [id number] [place] [address] Oct, 2014 [facility] [place] [facility] [address] [id number] [place] [address] Oct, 2014 [facility] [place] [facility] [address] [id number] [place] [address] Oct, 2014 [facility] [place] [facility] [address] [id number] [place] [address] Oct, 2014 [facility] [place] [facility] [address] [id number] [place] [address] Oct, 2014 [facility] [place] [facility] [address] [id number] [place] [address] Oct, 2014 [facility] [place] [facility] [address] [id number] [place] [address] Oct, 2014 [facility] [place] [facility] [address] [id number] [place] [address] Sep, [facility] [place] [facility] [address] [id number] [place] [address] Sep, [facility] [place] [facility] [address] [id number] [place] [address] Sep, [facility] [place] [facility] [address] [id number] [place] [address] Sep, [facility] [place] [facility] [address] [id number] [place] [address] Sep, [facility] [place] [facility] [address] [id number] [place] [address] Sep, [facility] [place] [facility] [address] [id number] [place] [address] Sep, [facility] [place] [facility] [address] [id number] [place] [address] Sep, [facility] [place] [facility] [address] [id number] [place] [address] Sep, [facility] [place] [facility] [address] [id number] [place] [address] Sep, [facility] [place] [facility] [address] [id number] [place] [address] Sep, [facility] [place] [facility] [address] [id number] [place] [address] Sep, [facility] [place] [facility] [address] [id number] [place] [address] Sep, [facility] [place] [facility] [address] [id number] [place] [address] Sep, [facility] [place] [facility] [address] [id number] [place] [address] Sep, [facility] [place] [facility] [address] [id number] [place] [address] Sep, [facility] [place] [facility] [address] [id number] [place] [address] Aug, [facility] [place] [facility] [address] [id number] [place] [address] Aug, [facility] [place] [facility] [address] [id number] [place] [address] Aug, [facility] [place] [facility] [address] [id number] [place] [address] Aug, [facility] [address] [facility] [id number] [place] [address] Aug, [facility] [place] [facility] [address] [facility] [id number] [place] [address] Aug, [facility] [place] [facility] [address] [facility] [id number] [place] [address] Aug, [facility] [place] [facility] [address] [facility] [id number] [place] [address] Aug, [facility] [place] [facility] [address] [facility] [id number] [place] [address] Aug, [facility] [place] [facility] [address] [facility] [id number] [place] [address] Aug, [facility] [place] [facility] [address] [id number] [place] [address] Aug, [facility] [address] [place] [id number] Aug, [facility] [place] [facility] [address] [id number] [place] [address] Aug, [facility] [place] [facility] [address] [id number] [place] [address] Aug, [facility] [place] [facility] [address] [facility] [id number] [place] [address] Aug, [facility] [place] [facility] [address] [id number] [place] [address] Aug, [facility] [place] [facility] [address] [facility] [id number] [place] [address] Aug, [facility] [place] [facility] [address] [facility] [id number] [place] [address] Aug, [facility] [place] [facility] [address] [facility] [id number] [place] [address] Aug, [facility] [place] [facility] [address] [id number] [place] [address] Aug, [facility] [place] [facility] [address] [facility] [id number] [place] [address] 08 Aug, 2014 [facility] [place] [facility] [address] [id number] [place] [address] Aug, [facility] [place] [facility] [address] [id number] [place] [address] Aug, [facility] [place] [facility] [address] [id number] [place] [address] Aug, [facility] [place] [facility] [address] [id number] [place] [address] Aug, [facility] [place] [facility] [address] [id number] [place] [address] Aug, [facility] [place] [facility] [address] [id number] [place] [address] Aug, [facility] [place] [facility] [address] [id number] [place] [address] Aug, [facility] [place] [facility] [address] [id number] [place] [address] Aug, [facility] [place] [facility] [address] [id number] [place] [address] Aug, [facility] [place] [facility] [address] [id number] [place] [address] Jul, [facility] [place] [facility] [address] [id number] [place] [address] Jul, [facility] [place] [facility] [address] [id number] [place] [address] Jul, [facility] [place] [facility] [address] [id number] [place] [address] Jul, [facility] [place] [facility] [address] [id number] [place] [address] Jul, [facility] [place] [facility] [address] [id number] [place] [address] Jul, [facility] [place] [facility] [address] [id number] [place] [address] Jul, [facility] [place] [facility] [address] [id number] [place] [address] Jul, [facility] [place] [facility] [address] [id number] [place] [address] Jul, [facility] [place] [facility] [address] [id number] [place] [address] Jul, [facility] [place] [facility] [address] [id number] [place] [address] Jun, [facility] [place] [facility] [address] [id number] [place] [address] Jun, [facility] [place] [facility] [address] [id number] [place] [address] Jun, [facility] [place] [facility] [address] [id number] [place] [address] Jun, [facility] [place] [facility] [address] [id number] [place] [address] Jun, [facility] [place] [facility] [address] [id number] [place] [address] Jun, [facility] [place] [facility] [address] [id number] [place] [address] Jun, [facility] [place] [facility] [address] [id number] [place] [address] Jun, [facility] [place] [facility] [address] [id number] [place] [address] Jun, [facility] [place] [facility] [address] [id number] [place] [address] Jun, [facility] [place] [facility] [address] [id number] [place] [address] 29 May, 2014 [facility] [place] [facility] [id number] [place] [address] 29 May, 2014 [facility] [place] [facility] [address] [id number] [place] [address] May, [facility] [place] [facility] [address] [id number] [place] [address] May, 2013 [facility] [place] [facility] [address] [id number] [place] [address] 17 May, 2013 [facility] [place] [facility] [address] [id number] [place] [address] 17 May, 2013 [facility] [place] [facility] [address] [id number] [place] [address] 15 May, 2013 [facility] [place] [facility] [address] [id number] [place] [address] 15 May, 2013 [facility] [place] [facility] [address] [facility] [id number] [place] [address] 15 May, 2013 [facility] [place] [facility] [address] [id number] [place] [address] 15 May, 2013 [facility] [place] [facility] [address] [id number] [place] [address] 10 May, 2013 [facility] [place] [facility] [address] [id number] [place] [address] 10 May, 2013 [facility] [place] [facility] [address] [id number] [place] [address] 09 May, 2013 [facility] [place] [facility] [address] [id number] [place] [address] 09 May, 2013 [facility] [place] [facility] [address] [id number] [place] [address] 04 May, 2013 [facility] [place] [facility] [address] [id number] [place] [address] May, 2013 [facility] [place] [facility] [address] [id number] [place] [address] Apr, [facility] [place] [facility] [address] [id number] [place] [address] Apr, [facility] [place] [facility] [address] [id number] [place] [address] Apr, [facility] [place] [facility] [address] [id number] [place] [address] Apr, [facility] [place] [facility] [address] [id number] [place] [address] Apr, [facility] [place] [facility] [address] [id number] [place] [address] Apr, [facility] [place] [facility] [address] [facility] [id number] [place] [address] Apr, [facility] [place] [facility] [address] [id number] [place] [address] Apr, [facility] [place] [facility] [address] [facility] [id number] [place] [address] Apr, [facility] [place] [facility] [address] [facility] [id number] [place] [address] Apr, [facility] [place] [facility] [address] [facility] [id number] [place] [address] Apr, [facility] [place] [facility] [address] [id number] [place] [address] Apr, [facility] [place] [facility] [address] [id number] [place] [address] Apr, [facility] [place] [facility] [address] [facility] [id number] [place] [address] Apr, [facility] [place] [facility] [address] [facility] [id number] [place] [address] Apr, [facility] [place] [facility] [address] [id number] [place] [address] Mar, [facility] [place] [facility] [address] [id number] [place] [address] Mar, [facility] [place] [facility] [address] [facility] [id number] [place] [address] Mar, [facility] [place] [facility] [address] [id number] [place] [address] Mar, [facility] [place] [facility] [address] [facility] [id number] [place] [address] Mar, [facility] [place] [facility] [address] [id number] [place] [address] Mar, [facility] [place] [facility] [address] [id number] [place] [address] Mar, 2013 [facility] [place] [facility] [address] [facility] [id number] [place] [address] Mar, 2013 [facility] [place] [facility] [address] [id number] [place] [address] Mar, 2013 [facility] [place] [facility] [address] [id number] [place] [address] Mar, 2013 [facility] [place] [facility] [address] [id number] [place] [address] Mar, 2013 [facility] [place] [facility] [address] [facility] [id number] [place] [address] Mar, 2013 [facility] [place] [facility] [address] [id number] [place] [address] Mar, 2013 [facility] [place] [facility] [address] [id number] [place] [address] Mar, 2013 [facility] [place] [facility] [address] [id number] [place] [address] Mar, 2013 [facility] [place] [facility] [address] [id number] [place] [address] Mar, 2013 [facility] [place] [facility] [address] [id number] [place] [address] Mar, 2013 [facility] [place] [facility] [address] [id number] [place] [address] Mar, 2013 [facility] [place] [facility] [address] [id number] [place] [address] Feb, [facility] [place] [facility] [address] [id number] [place] [address] Feb, [facility] [place] [facility] [address] [id number] [place] [address] Feb, [facility] [place] [facility] [address] [id number] [place] [address] Feb, 2013 [facility] [place] [facility] [address] [id number] [place] [address] Feb, [facility] [place] [facility] [address] [facility] [id number] [place] [address] Feb, [facility] [place] [facility] [address] [facility] [id number] [place] [address] Feb, [facility] [place] [facility] [address] [facility] [id number] [place] [address] Feb, [facility] [place] [facility] [address] [id number] [place] [address] Feb, [facility] [place] [facility] [address] [facility] [id number] [place] [address] Feb, [facility] [place] [facility] [address] [id number] [place] [address] Feb, [facility] [place] [facility] [address] [id number] [place] [address] Feb, [facility] [place] [facility] [address] [id number] [place] [address] Feb, [facility] [place] [facility] [address] [id number] [place] [address] Feb, [facility] [place] [facility] [address] [id number] [place] [address] January, [facility] [place] [facility] [address] [id number] [place] [address] January, [facility] [place] [facility] [address] [id number] [place] [address] January, [facility] [place] [facility] [address] [id number] [place] [address] January, [facility] [place] [facility] [address] [facility] [id number] [place] [address] January, [facility] [place] [facility] [address] [id number] [place] [address] January, [facility] [place] [facility] [address] [id number] [place] [address] January, [facility] [place] [facility] [address] [id number] [place] [address] January, [facility] [place] [facility] [address] [id number] [place] [address] January, [facility] [place] [facility] [address] [facility] [id number] [place] [address] January, [facility] [place] [facility] [address] [id number] [place] [address] January, [facility] [place] [facility] [address] [id number] [place] [address] January, [facility] [place] [facility] [address] [facility] [id number] [place] [address] January, [facility] [place] [facility] [address] [id number] [place] [address] January, [facility] [place] [facility] [address] [id number] [place] [address] Dec, [facility] [place] [facility] [address] [id number] [place] [address] Dec, [facility] [place] [facility] [address] [id number] [place] [address] Dec, [facility] [place] [facility] [address] [id number] [place] [address] Dec, [facility] [place] [facility] [address] [id number] [place] [address] Dec, [facility] [place] [facility] [address] [id number] [place] [address] Dec, [facility] [place] [facility] [address] [id number] [place] [address] Dec, [facility] [place] [facility] [address] [id number] [place] [address] Dec, [facility] [place] [facility] [address] [id number] [place] [address] Dec, [facility] [place] [facility] [address] [id number] [place] [address] Dec, [facility] [place] [facility] [address] [id number] [place] [address] Nov, [facility] [place] [facility] [address] [facility] [id number] [place] [address] Nov, [facility] [place] [facility] [address] [facility] [id number] [place] [address] Nov, [facility] [place] [facility] [address] [id number] [place] [address] Nov, [facility] [place] [facility] [address] [facility] [id number] [place] [address] Nov, [facility] [place] [facility] [address] [facility] [id number] [place] [address] Nov, [facility] [place] [facility] [address] [id number] [place] [address] Nov, [facility] [place] [facility] [address] [id number] [place] [address] Nov, [facility] [place] [facility] [address] [id number] [place] [address] Nov, [facility] [place] [facility] [address] [facility] [id number] [place] [address] Nov, [facility] [place] [facility] [address] [id number] [place] [address] Oct, [facility] [place] [facility] [address] [id number] [place] [address] Oct, [facility] [place] [facility] [address] [id number] [place] [address] Oct, [facility] [place] [facility] [address] [facility] [id number] [place] [address] Oct, [facility] [place] [facility] [address] [id number] [place] [address] Oct, [facility] [place] [facility] [address] [id number] [place] [address] Oct, [facility] [place] [facility] [address] [id number] [place] [address] 14 Oct, 2013 [facility] [place] [facility] [address] [facility] [id number] [place] [address] 14 Oct, 2013 [facility] [place] [facility] [address] [facility] [id number] [place] [address] Oct, [facility] [place] [facility] [address] [facility] [id number] [place] [address] Oct, [facility] [place] [facility] [address] [facility] [id number] [place] [address] Oct, [facility] [place] [facility] [address] [facility] [id number] [place] [address] Oct, [facility] [place] [facility] [address] [id number] [place] [address] Oct, [facility] [place] [facility] [address] [id number] [place] [address] Oct, [facility] [place] [facility] [address] [id number] [place] [address] Sep, [facility] [place] [facility] [address] [id number] [place] [address] Sep, [facility] [place] [facility] [address] [id number] [place] [address] Sep, [facility] [place] [facility] [address] [id number] [place] [address] 15 Sep, 2013 [facility] [place] [facility] [address] [id number] [place] [address] Sep, [facility] [place] [facility] [address] [facility] [id number] [place] [address] Sep, [facility] [place] [facility] [address] [id number] [place] [address] Sep, [facility] [place] [facility] [address] [id number] [place] [address] Sep, [facility] [place] [facility] [address] [id number] [place] [address] Sep, [facility] [place] [facility] [address] [id number] [place] [address] 08 Sep, 2013 [facility] [place] [facility] [address] [id number] [place] [address] 10 Aug, 2013 [facility] [place] [facility] [address] [id number] [place] [address] Aug, [facility] [place] [facility] [address] [id number] [place] [address] Jul, [facility] [place] [facility] [address] [id number] [place] [address] Jul, [facility] [place] [facility] [address] [id number] [place] [address] Jul, [facility] [place] [facility] [address] [id number] [place] [address] Jul, [facility] [place] [facility] [address] [id number] [place] [address] Jul, [facility] [place] [facility] [address] [id number] [place] [address] Jul, [facility] [place] [facility] [address] [id number] [place] [address] Jul, [facility] [place] [facility] [address] [id number] [place] [address] Jul, [facility] [place] [facility] [address] [id number] [place] [address] Jul, [facility] [place] [facility] [address] [id number] [place] [address] 08 Jul, 2013 [facility] [place] [facility] [address] [id number] [place] [address] Jul, [facility] [place] [facility] [address] [id number] [place] [address] Jul, [facility] [place] [facility] [address] [id number] [place] [address] Jul, [facility] [place] [facility] [address] [id number] [place] [address] 05 Jul, 2013 [facility] [place] [facility] [address] [id number] [place] [address] Jul, 2012 [facility] [place] [facility] [address] [id number] [place] [address] Jul, 2012 [facility] [place] [facility] [address] [id number] [place] [address] Jul, 2012 [facility] [place] [facility] [address] [id number] [place] [address] Jul, 2012 [facility] [place] [facility] [address] [id number] [place] [address] Jul, 2012 [facility] [place] [facility] [address] [id number] [place] [address] Jun, 2012 [facility] [place] [facility] [address] [id number] [place] [address] Jun, 2012 [facility] [place] [facility] [address] [id number] [place] [address] Jun, 2012 [facility] [place] [facility] [address] [id number] [place] [address] Jun, 2012 [facility] [place] [facility] [address] [id number] [place] [address] Jun, 2012 [facility] [place] [facility] [address] [id number] [place] [address] Jun, 2012 [facility] [place] [facility] [address] [id number] [place] [address] Jun, 2012 [facility] [place] [facility] [address] [id number] [place] [address] Jun, 2012 [facility] [place] [facility] [address] [id number] [place] [address] Jun, 2012 [facility] [place] [facility] [address] [id number] [place] [address] Jun, 2012 [facility] [place] [facility] [address] [id number] [place] [address] Jun, 2012 [facility] [place] [facility] [address] [id number] [place] [address] 26 May, 2012 [facility] [place] [facility] [address] [id number] [place] [address] 25 May, 2012 [facility] [place] [facility] [address] [facility] [id number] [place] [address] 19 May, 2012 [facility] [place] [facility] [address] [id number] [place] [address] 17 May, 2012 [facility] [place] [facility] [address] [id number] [place] [address] 11 May, 2012 [facility] [place] [facility] [address] [facility] [id number] [place] [address] 10 May, 2012 [facility] [place] [facility] [address] [id number] [place] [address] May, [facility] [place] [facility] [address] [id number] [place] [address] 05 May, 2013 [facility] [place] [facility] [address] [id number] [place] [address] Apr, [facility] [place] [facility] [address] [facility] [id number] [place] [address] Apr, [facility] [place] [facility] [address] [id number] [place] [address] Apr, [facility] [place] [facility] [address] [id number] [place] [address] Apr, [facility] [place] [facility] [address] [id number] [place] [address] Apr, [facility] [place] [facility] [address] [facility] [id number] [place] [address] Mar, [facility] [place] [facility] [address] [id number] [place] [address] Mar, [facility] [place] [facility] [address] [id number] [place] [address] Mar, [facility] [place] [facility] [address] [id number] [place] [address] Mar, [facility] [place] [facility] [address] [id number] [place] [address] Mar, [facility] [place] [facility] [address] [id number] [place] [address] Mar, [facility] [place] [facility] [address] [id number] [place] [address] Mar, [facility] [place] [facility] [address] [id number] [place] [address] Mar, [facility] [place] [facility] [address] [id number] [place] [address] Feb, [facility] [place] [facility] [address] [id number] [place] [address] Feb, [facility] [place] [facility] [address] [id number] [place] [address] January, [facility] [place] [facility] [address] [id number] [place] [address] January, [facility] [place] [facility] [address] [id number] [place] [address] Dec, [facility] [place] [facility] [address] [id number] [place] [address] Dec, [facility] [place] [facility] [address] [id number] [place] [address] Nov, [facility] [place] [facility] [address] [id number] [place] [address] Nov, [facility] [place] [facility] [address] [id number] [place] [address] Nov, [facility] [place] [facility] [address] [id number] [place] [address] Nov, [facility] [place] [facility] [address] [id number] [place] [address] Oct, [facility] [place] [facility] [address] [id number] [place] [address] Oct, [facility] [place] [facility] [address] [id number] [place] [address] Oct, [facility] [place] [facility] [address] [facility] [id number] [place] [address] Oct, [facility] [place] [facility] [address] [id number] [place] [address] 16 Oct, 2012 [facility] [place] [facility] [address] [id number] [place] [address] 14 Oct, 2012 [facility] [place] [facility] [address] [id number] [place] [address] 08 Oct, 2012 [facility] [place] [facility] [address] [id number] [place] [address] 07 Oct, 2012 [facility] [place] [facility] [address] [id number] [place] [address] 03 Oct, 2012 [facility] [place] [facility] [address] [id number] [place] [address] Sep, [facility] [place] [facility] [address] [id number] [place] [address] Sep, [facility] [place] [facility] [address] [id number] [place] [address] Sep, [facility] [place] [facility] [address] [id number] [place] [address] Sep, [facility] [place] [facility] [address] [id number] [place] [address] Sep, [facility] [place] [facility] [address] [id number] [place] [address] Sep, [facility] [place] [facility] [address] [id number] [place] [address] Sep, [facility] [place] [facility] [address] [id number] [place] [address] Sep, [facility] [place] [facility] [address] [id number] [place] [address] Aug, [facility] [place] [facility] [address] [id number] [place] [address] Aug, [facility] [place] [facility] [address] [id number] [place] [address] Aug, [facility] [place] [facility] [address] [id number] [place] [address] Aug, [facility] [place] [facility] [address] [id number] [place] [address] Aug, [facility] [place] [facility] [address] [id number] [place] [address] Aug, [facility] [place] [facility] [address] [id number] [place] [address] Aug, [facility] [place] [facility] [address] [id number] [place] [address] Aug, [facility] [place] [facility] [address] [id number] [place] [address] Jul, [facility] [place] [facility] [address] [id number] [place] [address] Jul, [facility] [place] [facility] [address] [id number] [place] [address] Jul, [facility] [place] [facility] [address] [id number] [place] [address] Jul, [facility] [place] [facility] [address] [id number] [place] [address] Jul, [facility] [place] [facility] [address] [id number] [place] [address] Jul, [facility] [place] [facility] [address] [id number] [place] [address] Jun, [facility] [address] [id number] [place] [address] Jun, [facility] [id number] [place] [address] Jun, [facility] [address] [id number] [place] [address] Jun, [facility] [address] [id number] [place] [address] Jun, [facility] [address] [id number] [place] [address] Jun, [facility] [address] [id number] [place] [address] Jun, [facility] [address] [id number] [place] [address] Jun, [facility] [address] [id number] [place] [address] Jun, [facility] [address] [id number] [place] [address] May, [facility] [address] [id number] [place] [address] 24 May, 2012 [facility] [address] [id number] [place] [address] May, [facility] [address] [id number] [place] [address] 30 Apr, 2012 [facility] [address] [id number] [place] [address] Apr, [facility] [address] [id number] [place] [address] Apr, [facility] [address] [id number] [place] [address] Apr, [facility] [address] [id number] [place] [address] Apr, [facility] [address] [id number] [place] [address] Apr, [facility] [address] [id number] [place] [address] Mar, [facility] [address] [id number] [place] [address] Mar, [facility] [address] [id number] [place] [address] Mar, [facility] [address] [id number] [place] [address] Mar, [facility] [address] [facility] [id number] [place] [address] Feb, [facility] [address] [id number] [place] [address] Feb, [facility] [address] [id number] [place] [address] Feb, [facility] [address] [id number] [place] [address] Feb, [facility] [address] [facility] [id number] [place] [address] Feb, [facility] [address] [id number] [place] [address] January, [facility] [address] [id number] [place] [address] January, [facility] [address] [id number] [place] [address] January, [facility] [address] [id number] [place] [address] January, [facility] [address] [id number] [place] [address] January, [facility] [address] [id number] [place] [address] January, [facility] [address] [id number] [place] [address] Dec, [facility] [address] [id number] [place] [address] Dec, [facility] [address] [id number] [place] [address] Dec, [facility] [address] [id number] [place] [address] Dec, [facility] [address] [id number] [place] [address] Dec, [facility] [address] [id number] [place] [address] 27 Nov, 2011 [facility] [address] [id number] [place] [address] 14 Nov, 2011 [facility] [address] [id number] [place] [address] 12 Nov, 2011 [facility] [address] [id number] [place] [address] 07 Nov, 2011 [facility] [address] [id number] [place] [address] 29 Oct, 2011 [facility] [address] [id number] [place] [address] 28 Oct, 2011 [facility] [address] [id number] [place] [address] 24 Oct, 2011 [facility] [address] [id number] [place] [address] Oct, [facility] [address] [id number] [place] [address] Oct, [facility] [address] [id number] [place] [address] Sep, [facility] [address] [id number] [place] [address] Sep, [facility] [address] [id number] [place] [address] Sep, [facility] [address] [id number] [place] [address] Sep, [facility] [address] [id number] [place] [address] Sep, [facility] [address] [id number] [place] [address] Sep, [facility] [address] [id number] [place] [address] Aug, [facility] [address] [id number] [place] [address] Aug, [facility] [address] [facility] [id number] [place] [address] Aug, [facility] [address] [id number] [place] [address] Jul, [facility] [address] [id number] [place] [address] Jul, [facility] [address] [id number] [place] [address] Jul, [facility] [address] [facility] [id number] [place] [address] Jul, [facility] [address] [id number] [place] [address] Jun, [facility] [address] [id number] [place] [address] Jun, [facility] [address] [id number] [place] [address] Jun, [facility] [address] [id number] [place] [address] Jun, [facility] [address] [id number] [place] [address] Jun, [facility] [address] [id number] [place] [address] Jun, [facility] [address] [id number] [place] [address] Mar, [facility] [address] [id number] [place] [address] Dec, [facility] [address] [id number] [place] [address] Dec, [facility] [address] [id number] [place] [address] Nov, [facility] [address] [id number] [place] [address] 16 Nov, 2010 [facility] [address] [id number] [place] [address] 10 Sep, 2010 [facility] [address] [id number] [place] [address] 31 Aug, 2010 [facility] [address] [id number] [place] [address] Aug, [facility] [address] [id number] [place] [address] 29 Aug, 2010 [facility] [address] [id number] [place] [address] 29 Aug, 2010 [facility] [address] [id number] [place] [address] Aug, [facility] [address] [id number] [place] [address] 14 Aug, 2010 [facility] [address] [id number] [place] [address] 08 Aug, 2010 [facility] [address] [id number] [place] [address] 08 Aug, 2010 [facility] [address] [id number] [place] [address] Aug, [facility] [address] [id number] [place] [address] 06 Aug, 2010 [facility] [address] [id number] [place] [address] Aug, [facility] [address] [id number] [place] [address] Aug, [facility] [address] [id number] [place] [address] 30 Jul, 2010 [facility] [id number] [place] [address] 30 Jul, 2010 [facility] [address] [id number] [place] [address] 30 Jul, 2010 [facility] [address] [id number] [place] [address] 17 Jul, 2010 [facility] [address] [id number] [place] [address] 08 Jul, 2010 [facility] [address] [id number] [place] [address] Jul, [facility] [address] [id number] [place] [address] Jun, [facility] [address] [id number] [place] [address] Jun, [facility] [address] [id number] [place] [address] Jun, [facility] [address] [id number] [place] [address] Jun, [facility] [address] [id number] [place] [address] Apr, [facility] [address] [id number] [place] [address] Mar, [facility] [address] [id number] [place] [address] Feb, [facility] [address] [id number] [place] [address] January, [facility] [address] [id number] [place] [address] 15 Dec, 2009 [facility] [address] [id number] [place] [address] Nov, [facility] [address] [id number] [place] [address] Aug, [facility] [address] [id number] [place] [address] Aug, [facility] [address] [id number] [place] [address] 07 Aug, 2009 [facility] [address] [id number] [place] [address] Jul, [facility] [address] [id number] [place] [address] Jul, [facility] [address] [id number] [place] [address] Jul, [facility] [address] [id number] [place] [address] Jun, [facility] [address] [id number] [place] [address] Jun, [facility] [id number] [place] [address] Jun, [facility] [id number] [place] [address] Jun, [facility] [address] [address] Jun, [facility] [id number] [place] [address] Jun, [facility] [id number] [place] [address] Apr, [facility] [id number] [place] [address] Apr, [facility] [id number] [place] [address] Feb, [facility] [address] [id number] [place] [address] January, [facility] [id number] [place] [address] Dec, IMMUNIZATIONS No Known Immunizations SOCIAL HISTORY [...] (Left) 2000 Surgical History EGD ([facility]) 2009 Surgical History colonoscopy 2009 ([facility]), 2013 ([facility] ) Surgical History heart cath: CAD w/ [...] to urinate 09/16/15 [address] [facility] mental health ea [facility]ly 1999' Hospitalization History hyperkalemia 10/2017 Hospitalization History fluid in lung
--- OUTSIDE RECORDS SUMMARY | 2020-03-01 16:59 | XMS REPORT ---
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 Name Role Phone ROSELINE LUIS Unavailable PROBLEMS Type Condition ICD9-CM Code FIZ38-ZF Code Onset Dates Condition S tatus SNOMED Code Problem DM neuro manif type II E11.49 Active 47997749 Problem Chronic pain G89.29 Active 9138008 1 Problem Diabetes E11.9 Active 07361295 Problem Reactive airway disease J45.909 Active 660912825072 Problem Leukocytosis D72.829 Active 4349159 06 Problem Insomnia, unspecified type G47.00 Act sharon 804043324 Problem Bipolar I disorder, most recent episode (or curr ent) mixed, moderate F31.62 Active 34806141 Problem Primary osteoarthritis of right knee M17.11 Active 949000983891687 Problem Cough R05 Active 75703317 Problem Pure hypercholesterolemia E78.00 Acti ve 487927510 Problem Dysuria R30.0 Active 51197472 Problem Benign prostatic hyperplasia with lower urinary tract symptoms, unspecified morphology N40.1 Active 13598 6007 Problem Eustachian tube dysfunction, unspecified laterality H69.80 Active 31742212 Problem Polyneuropathy associated with underlying disease G63 Active 442889167 Problem Diabetic polyneuropathy associated with type 2 d iabetes mellitus E11.42 Active 90703250 Problem Anemia of chronic illness D63.8 Acti ve 147991672 Problem Chronic lymphocytic leukemia C91.10 A ctive 28044567 Problem Bilateral primary osteoarthritis of knee M17.0 Active 327965468 Problem 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 Active 584194945 Problem Eye exam abnormal R93.8 Active 16 1284289 Problem Retinal edema H35.81 Active 553049 6 Problem Lymphocytosis D72.820 Active 495036 09 Problem Bipolar disorder, in partial remission, most rec ent episode depressed F31.75 Active 63456454 Problem Hypokalemia E87.6 Active 44346076 Problem Falling R29.6 Active 538917470 Problem Pressure ulcer of other site, stage 3 L89.893 Active 396515161 Problem Other iron deficiency anemia D50.8 A ctive 07721744 Problem Mild cognitive impairment G31.84 Acti ve 878155482 Problem Skin cancer C44.90 Active 81229689 7 Problem 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 Active 610170289 Problem Morbid obesity E66.01 Active 98415 6002 Problem Mood disorder F39 Active 799136 05 Problem Anxiety F41.9 Active 84887548 Problem Essential hypertension I10 Active 98997400 Problem Bipolar disorder F31.9 Active 137 04270 Problem Chronic diastolic (congestive) heart failure I50.3 2 Active 546702762 Problem Psychophysiological insomnia F51.04 A ctive 206164072 Problem Type 2 diabetes mellitus with diabetic neuropathy, uns pecified E11.40 Active 96834158 ALLERGIES No Information ENCOUNTERS Encounter Location Date Diagnosis [place] [address] [address] Oct, [place] [address] [address] Sep, [facility] [address] [address] Sep, [place] [address] [address] Sep, Bipolar disorder, in partial remission, most recent episode depressed F31.75 and Mild cognitive impairment G31.84 [facility] [address] [address] Sep, Mood disorder F39 [facility] [address] [address] Sep, [facility] [address] [address] Sep, Mood disorder F39 [facility] [address] [address] Sep, [facility] [address] [address] Aug, Mood disorder F39 [facility] [address] [id number] [place] [address] Aug, [facility] [address] [id number] [place] [address] Aug, [facility] [address] [facility] [place] [address] Aug, [facility] [address] [facility] [place] [address] Aug, [facility] [address] [id number] [place] [address] Aug, [facility] [address] [facility] [place] [address] Aug, [facility] [address] [id number] [place] [address] Aug, [facility] [address] [id number] [place] [address] Aug, Essential hypertension I10 [facility] [address] [facility] [place] [address] Aug, Bipolar disorder, in partial remission, most recent episode depressed F31.75 and Mild cognitive impairment G31.84 [facility] [address] [place] [id number] [place] [address] Aug, Mood disorder F39 [facility] [address] [place] [id number] [place] [address] Aug, [facility] [address] [facility] [place] [address] Aug, Bipolar disorder, in partial remission, most recent episode depressed F31.75 and Mild cognitive impairment G31.84 [facility] [address] [place] [id number] [place] [address] Jul, Bipolar disorder, in partial remission, most recent episode depressed F31.75 and Mild cognitive impairment G31.84 [facility] [address] [place] [id number] [place] [address] Jul, Psychophysiological insomnia F51.04 [facility] [address] [place] [id number] [place] [address] Jul, [facility] [address] [address] Jul, [facility] [address] [address] Jul, [facility] [address] [address] Jul, [facility] [address] [address] Jul, [facility] [address] [address] Jul, [facility] [address] [address] Jul, Bipolar disorder, in partial remission, most recent episode depressed F31.75 and Mild cognitive impairment G31.84 [facility] [address] [address] Jul, Chronic pain G89.29 ; Diabetes E11.9 ; E ssential hypertension I10 ; Ill feeling R68.89 ; Local infection of the skin and subcutaneous tissue, unspecified L08.9 and Other injury of unspecified body region, initial encounter T14.8XXA [facility] [address] [address] Jun, Bipolar disorder, in partial remission, most recent episode depressed F31.75 and Mild cognitive impairment G31.84 [facility] [address] [address] Jun, [facility] [address] [address] Jun, Bipolar disorder, in partial remission, most recent episode depressed F31.75 and Mild cognitive impairment G31.84 [facility] [address] [address] Jun, Psychophysiological insomnia F51.04 [place] [address] [address] Jun, Psychophysiological insomnia F51.04 ; Ch ronic pain G89.29 ; Bipolar I disorder, most recent episode (or current) mixed, moderate F31.62 ; 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 ; Polyneuropathy associated with underlying disease G63 ; Type 2 diabetes mellitus with diabetic neuropathy, unspecified E11.40 ; USP (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 Z79.4 and Hyperglycemia R73.9 [place] [address] [address] Jun, Bipolar disorder, in partial remission, most recent episode depressed F31.75 and Mild cognitive impairment G31.84 [place] [address] [address] Jun, [place] [address] [address] Jun, Bipolar disorder F31.9 [place] [address] [address] May, Bipolar disorder, in partial remission, most recent episode depressed F31.75 and Mild cognitive impairment G31.84 [place] [address] [address] May, [place] [address] [address] Apr, Chronic pain G89.29 and Bipolar disorder F31.9 [place] [address] [address] Mar, Bipolar disorder F31.9 and Chronic pain G89.29 [place] [address] [address] Feb, Bipolar disorder F31.9 [facility] [address] [address] Feb, Cellulitis of right upper extremity L03. 113 and Skin abrasion T14.8XXA [facility] [address] [address] Feb, Bipolar disorder, in partial remission, most recent episode depressed F31.75 and Mild cognitive impairment G31.84 [place] [address] [address] Feb, Chronic pain G89.29 [facility] [address] [address] Feb, Bipolar disorder, in partial remission, most recent episode depressed F31.75 and Mild cognitive impairment G31.84 [place] [address] [address] January, Bipolar disorder, in partial remission, most recent episode depressed F31.75 and Mild cognitive impairment G31.84 [place] [address] [address] January, Chronic pain G89.29 and Bipolar disorder F31.9 [place] [address] [address] January, Bipolar disorder, in partial remission, most recent episode depressed F31.75 and Mild cognitive impairment G31.84 [place] [address] [address] Dec, [place] [address] [address] Dec, Chronic pain G89.29 and Bipolar disorder F31.9 [place] [address] [address] Dec, Edema of both lower extremities R60.0 [place] [address] [address] Dec, Bipolar disorder F31.9 [facility] [address] [address] Dec, Bipolar disorder, in partial remission, most recent episode depressed F31.75 and Mild cognitive impairment G31.84 [place] [address] [address] Nov, [place] [address] [address] Nov, Chronic pain G89.29 [place] [address] [address] Nov, Bipolar disorder, in partial remission, most recent episode depressed F31.75 and Mild cognitive impairment G31.84 [place] [address] [address] Nov, Bipolar disorder F31.[address] [address] 04 Nov, 2018 Encounter for Medicare annual [...] unspecified morphology N40.1 and Essential hypertension I10 [place] [address] [address] Oct, Chronic pain G89.29 [place] [address] [address] Oct, Diabetes E11.9 [place] [address] [address] Oct, Bipolar I disorder, most recent episode (or current) mixed, moderate F31.62 and Mild cognitive impairment G31.84 [place] [address] [address] Oct, Bipolar I disorder, most recent episode (or current) mixed, moderate F31.62 and Mild cognitive impairment G31.84 [place] [address] [address] Sep, Bipolar I disorder, most recent episode (or current) mixed, moderate F31.62 and Mild cognitive impairment G31.84 [place] [address] [address] Sep, [place] [address] [address] Sep, Diabetes E11.9 ; Hypoxia R09.02 ; Hyperg lycemia R73.9 ; Therapeutic drug monitoring Z51.81 ; BMI 50.0-59.9, adult Z68.43 and Skin cancer C44.90 [place] [address] [address] Sep, Chronic pain G89.29 [place] [address] [address] Sep, Bipolar I disorder, most recent episode (or current) mixed, moderate F31.62 [place] [address] [address] Sep, [place] [address] [address] Sep, [place] [address] [address] Aug, Chronic pain G89.29 [place] [address] [address] Aug, Bipolar I disorder, most recent episode (or current) mixed, moderate F31.62 [place] [address] [address] Aug, Bipolar I disorder, most recent episode (or current) mixed, moderate F31.62 and Mild cognitive impairment G31.84 [place] [address] [address] Jul, [place] [address] [address] Jul, Chronic pain G89.29 [facility] [address] [address] Jul, Bipolar I disorder, most recent episode (or current) mixed, moderate F31.62 and Mild cognitive impairment G31.84 [facility] [address] [place] [address] Jul, Bipolar I disorder, most recent episode (or current) mixed, moderate F31.62 and MCI (mild cognitive impairment) G31.84 [facility] [address] [address] Jul, [facility] [address] [address] Jul, [facility] [address] [address] Jul, Bipolar I disorder, most recent episode (or current) mixed, moderate F31.62 [place] [address] [address] Jul, Chronic pain G89.29 [place] [address] [place] [address] Jun, Bipolar I disorder, most recent episode (or current) mixed, moderate F31.62 [place] [address] [address] Jun, Pre-procedure lab exam Z01.812 [place] [address] [place] [id number] [place] [address] Jun, [facility] [address] [facility] [place] [id number] Jun[place] [address] [place] [address] Jun, [place] [address] [address] Jun, Forgetfulness R68.89 ; Pre-syncope R55 ; Localized edema R60.0 ; Other iron deficiency anemia D50.8 and BMI 50.0-59.9, adult Z68.43 [place] [address] [address] Jun, Chronic pain G89.29 [place] [address] [address] Jun, Chronic pain G89.29 [place] [address] [address] Jun, Bipolar I disorder, most recent episode (or current) mixed, moderate F31.62 [place] [address] [address] May, Chronic pain G89.29 [place] [address] [address] Apr, [place] [address] [address] Apr, Chronic pain G89.29 [place] [address] [address] Apr, Primary osteoarthritis of right knee M17 .11 [place] [address] [address] Mar, [place] [address] [address] Mar, BMI 50.0-59.9, adult Z68.43 and Bipolar disorder, in partial remission, most recent episode depressed F31.75 [place] [address] [address] Mar, Diabetes E11.9 ; Pure hypercholesterolem ia E78.00 ; Essential hypertension I10 ; Nausea with vomiting, unspecified R11.2 and Headache, unspecified headache type R51 [place] [address] [address] Mar, Bipolar I disorder, most recent episode (or current) mixed, moderate F31.62 [place] [address] [address] Mar, Bipolar I disorder, most recent episode (or current) mixed, moderate F31.62 [place] [address] [address] Mar, Chronic pain G89.29 [facility] [address] [address] Mar, Bipolar I disorder, most recent episode (or current) mixed, moderate F31.62 [place] [address] [address] Feb, Bipolar I disorder, most recent episode (or current) mixed, moderate F31.62 [place] [address] [address] Feb, Chronic pain G89.29 [place] [address] [address] Feb, Decubitus ulcer of right foot, stage 3 L 89.893 and BMI 50.0-59.9, adult Z68.43 [place] [address] [address] Feb, Bipolar I disorder, most recent episode (or current) mixed, moderate F31.62 [place] [address] [address] Feb, [place] [address] [address] January, [place] [address] [address] January, Chronic pain G89.29 [facility] [address] [address] January, Bipolar I disorder, most recent episode (or current) mixed, moderate F31.62 [place] [address] [address] January, Bipolar I disorder, most recent episode (or current) mixed, moderate F31.62 [place] [address] [address] Dec, Bipolar I disorder, most recent episode (or current) mixed, moderate F31.62 and BMI 50.0-59.9, adult Z68.43 [place] [address] [address] Dec, Bipolar I disorder, most recent episode (or current) mixed, moderate F31.62 [place] [address] [address] Dec, Chronic pain G89.29 [place] [address] [address] Dec, DM neuro manif type II E11.49 ; Right fl ank pain R10.9 ; USP 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 Z79.891 ; Encounter for medication monitoring Z51.81 and BMI 50.0-59.9, adult Z68.43 [place] [address] [address] Dec, Bipolar I disorder, most recent episode (or current) mixed, moderate F31.62 [place] [address] [address] Nov, Bipolar I disorder, most recent episode (or current) mixed, moderate F31.62 [place] [address] [address] Nov, Chronic pain G89.29 [place] [address] [address] Nov, Bipolar I disorder, most recent episode (or current) mixed, moderate F31.62 [place] [address] [address] Nov, Hypokalemia E87.6 [place] [address] [address] Nov, Bipolar I disorder, most recent episode (or current) mixed, moderate F31.62 [place] [address] [address] Oct, Chronic pain G89.29 [place] [address] [address] Oct, BMI 50.0-59.9, adult Z68.43 and Bipolar I disorder, most recent episode (or current) mixed, moderate F31.62 [place] [address] [address] Oct, Bipolar I disorder, most recent episode (or current) mixed, moderate F31.62 [place] [address] [address] Oct, [place] [address] [address] Oct, Hypokalemia E87.6 [place] [address] [address] Oct, DM neuro manif type II E11.49 [place] [address] [address] Oct, Bipolar I disorder, most recent episode (or current) mixed, moderate F31.62 [place] [address] [address] Oct, Bipolar I disorder, most recent episode (or current) mixed, moderate F31.62 [place] [address] [address] Oct, Hyperkalemia E87.5 ; Falling R29.6 ; BMI 50.0-59.9, adult Z68.43 and Acute left ankle pain M25.572 [place] [address] [address] Oct, DM neuro manif type II E11.49 [place] [address] [address] Oct, [place] [address] [address] Sep, Chronic pain G89.29 [place] [address] [address] Sep, [place] [address] [address] Sep, Bilateral primary osteoarthritis of knee M17.0 [place] [address] [address] Sep, Generalized edema R60.1 [place] [address] [address] Sep, Bipolar I disorder, most recent episode (or current) mixed, moderate F31.62 [place] [address] [address] Sep, Hypoxia R09.02 ; Other hypervolemia E87. 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 ; Anemia of chronic illness D63.8 and BMI 50.0-59.9, adult Z68.43 [place] [address] [address] Sep, [place] [address] [address] Sep, Bipolar I disorder, most recent episode (or current) mixed, moderate F31.62 [place] [address] [address] Aug, Chronic pain G89.29 [place] [address] [address] Aug, Generalized edema R60.1 [place] [address] [address] Aug, [place] [address] [address] Aug, [place] [address] [address] Aug, Bipolar I disorder, most recent episode (or current) mixed, moderate F31.62 [place] [address] [place] [address] Aug, Bipolar I disorder, most recent episode (or current) mixed, moderate F31.62 [place] [address] [address] Aug, Chronic pain G89.[address] [address] Jul, Bipolar I disorder, most recent episode (or current) mixed, moderate F31.62 [place] [address] [address] Jul, Bipolar I disorder, most recent episode (or current) mixed, moderate F31.62 and BMI 60.0-69.9, adult Z68.44 [place] [address] [address] Jul, Bipolar I disorder, most recent episode (or current) mixed, moderate F31.62 [place] [address] [address] Jul, Chronic pain G89.[address] [address] Jul, Bipolar I disorder, most recent episode (or current) mixed, moderate F31.62 [place] [address] [address] Jun, Polyneuropathy associated with underlyin g disease G63 and Diabetes E11.[address] [address] Jun, Bipolar I disorder, most recent episode (or current) mixed, moderate F31.[address] [address] Jun, Chronic pain G89.29 [facility] [address] [address] 27 May, 2017 Bipolar I disorder, most recent episode (or current) mixed, moderate F31.62 [facility] [address] [address] 21 May, 2017 Bipolar I disorder, most recent episode (or current) mixed, moderate F31.62 [facility] [address] [address] 20 May, 2017 Diabetic polyneuropathy associated with type 2 diabetes mellitus E11.42 [place] [address] [place] [address] 18 May, 2017 Bipolar I disorder, most recent episode (or current) mixed, moderate F31.62 [place] [address] [address] 13 May, 2017 Bipolar I disorder, most recent episode (or current) mixed, moderate F31.62 [place] [address] [address] May, Chronic pain G89.29 [place] [address] [address] Apr, Bipolar I disorder, most recent episode (or current) mixed, moderate F31.62 [place] [address] [address] Apr, [place] [address] [place] [address] Apr, Chronic pain G89.29 and DM neuro manif t ype II E11.49 [place] [address] [address] Apr, [place] [address] [place] [address] Apr, Bipolar I disorder, most recent episode (or current) mixed, moderate F31.62 [place] [address] [address] Apr, Chronic pain G89.29 [facility] [address] [address] Apr, Iliotibial band syndrome, left M76.32 [facility] [address] [address] Apr, Bipolar I disorder, most recent episode (or current) mixed, moderate F31.62 [facility] [address] [address] Mar, Bipolar I disorder, most recent episode (or current) mixed, moderate F31.62 [facility] [address] [address] Mar, Bipolar I disorder, most recent episode (or current) mixed, moderate F31.62 [place] [address] [address] Mar, [facility] [address] [address] Mar, Bipolar I disorder, most recent episode (or current) mixed, moderate F31.62 [facility] [address] [address] Mar, Chronic pain G89.29 [facility] [address] [address] Mar, Bipolar I disorder, most recent episode (or current) mixed, moderate F31.62 [facility] [address] [address] Mar, Bipolar I disorder, most recent episode (or current) mixed, moderate F31.62 [facility] [address] [address] Mar, Acute pain of left knee M25.562 ; Left h ip pain M25.552 ; Generalized edema R60.1 and Tongue swelling R22.0 [facility] [address] [address] Mar, [facility] [address] [address] Feb, Chronic pain G89.29 [facility] [address] [address] Feb, Diabetes E11.9 [facility] [address] [address] January, Chronic pain G89.29 [facility] [address] [address] January, [facility] [address] [address] January, Bipolar I disorder, most recent episode (or current) mixed, moderate F31.62 [place] [address] [address] Dec, Bipolar I disorder, most recent episode (or current) mixed, moderate F31.62 [place] [address] [address] Dec, Chronic pain G89.29 [facility] [address] [address] Dec, Bipolar I disorder, most recent episode (or current) mixed, moderate F31.62 [place] [address] [address] Dec, Diabetes E11.9 ; Essential hypertension I10 ; Chronic pain G89.29 and Morbid obesity E66.01 [facility] [address] [address] Dec, [facility] [address] [address] Dec, Bipolar I disorder, most recent episode (or current) mixed, moderate F31.62 [facility] [address] [address] Dec, Bipolar I disorder, most recent episode (or current) mixed, moderate F31.62 [facility] [address] [address] Nov, Chronic pain G89.29 [facility] [address] [address] Nov, Bipolar I disorder, most recent episode (or current) mixed, moderate F31.62 [facility] [address] [address] Nov, [facility] [address] [address] Nov, Bipolar I disorder, most recent episode (or current) mixed, moderate F31.62 [facility] [address] [address] Nov, Bipolar I disorder, most recent episode (or current) mixed, moderate F31.62 [facility] [address] [address] Nov, [facility] [address] [address] Nov, [facility] [address] [address] Nov, [facility] [address] [address] Oct, Chronic pain G89.29 [facility] [address] [address] Oct, Bipolar I disorder, most recent episode (or current) mixed, moderate F31.62 [facility] [address] [address] Oct, [facility] [address] [address] 15 Oct, 2016 Chronic pain G89.29 ; Diabetes E11.9 ; A nxiety F41.9 and 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 [facility] [address] [address] [place] [address] Oct, [facility] [address] [address] Oct, Diabetes E11.9 [facility] [address] [address] Oct, Bipolar I disorder, most recent episode (or current) mixed, moderate F31.62 [facility] [address] [address] Sep, Chronic pain G89.29 [facility] [address] [address] Sep, Chronic pain G89.29 [facility] [address] [address] Aug, Chronic pain G89.29 [place] [address] [address] Jul, [facility] [address] [address] Jul, Diabetes E11.9 [facility] [address] [address] Jul, Chronic pain G89.29 [place] [address] [address] Jul, Bipolar I disorder, most recent episode (or current) mixed, moderate F31.62 [facility] [address] [address] Jun, Bipolar I disorder, most recent episode (or current) mixed, moderate F31.62 [place] [address] [address] Jun, [facility] [address] [address] Jun, Bipolar I disorder, most recent episode (or current) mixed, moderate F31.62 [facility] [address] [id number] 30 May, 2016 Insomnia, unspecified type G47.00 [place] [address] [address] May, Bipolar I disorder, most recent episode (or current) mixed, moderate F31.62 [place] [address] [address] 14 May, 2016 [place] [address] [address] May, Bipolar I disorder, most recent episode (or current) mixed, moderate F31.62 [place] [address] [address] May, Diabetes E11.9 and Essential hypertensio n I10 [place] [address] [address] Apr, Chronic pain G89.29 [place] [address] [address] Apr, Bipolar I disorder, most recent episode (or current) mixed, moderate F31.62 [place] [address] [address] Apr, [place] [address] [address] Apr, [place] [address] [address] Mar, Chronic pain G89.29 ; Headache, unspecif ied headache type R51 ; Neuropathy G62.9 ; Pain of right hip joint M25.551 and Essential hypertension I10 [place] [address] [address] Mar, Chronic pain G89.29 [place] [address] [address] Mar, Bipolar I disorder, most recent episode (or current) mixed, moderate F31.62 [place] [address] [address] Feb, Bipolar I disorder, most recent episode (or current) mixed, moderate F31.62 and Insomnia, unspecified type G47.00 [place] [address] [address] Feb, Chronic pain G89.29 [place] [address] [address] Feb, Bipolar I disorder, most recent episode (or current) mixed, moderate F31.62 [place] [address] [address] January, Bipolar I disorder, most recent episode (or current) mixed, moderate F31.62 [place] [address] [address] January, Chronic pain G89.29 [place] [address] [address] January, Chronic pain G89.29 and Essential hypert ension I10 [place] [address] [address] January, Bipolar I disorder, most recent episode (or current) mixed, moderate F31.62 [place] [address] [address] Dec, [place] [address] [address] Dec, [place] [address] [address] Dec, [place] [address] [address] Dec, [place] [address] [address] Nov, Reactive airway disease J45.909 [place] [address] [address] Nov, [place] [address] [address] Nov, [place] [address] [address] Nov, [place] [address] [address] Nov, [place] [address] [address] Nov, Onychomycosis B35.1 ; Hammertoe M20.40 ; [place] or callus L84 and DM neuro manif type II E11.[address] [address] Nov, Chronic pain G89.29 ; Leukocytosis D72.8 29 and Diabetes E11.[address] [address] Nov, [place] [address] [address] Oct, Bronchitis J40 [place] [address] [address] Oct, [address] [address] Oct, [place] [address] [address] Oct, Mastoiditis, unspecified laterality H70. 90 and Type 2 diabetes mellitus with complication E11.8 [place] [address] [address] Sep, [address] [address] Sep, Dysuria R30.0 ; Cough R05 ; Benign prost atic hyperplasia with lower urinary tract symptoms, unspecified morphology N40.1 ; Hypokalemia E87.6 and Eustachian tube dysfunction, unspecified laterality H69.80 [place] [address] [address] Sep, Moderate mixed bipolar I disorder F31.62 [facility] [address] [address] Sep, Hypokalemia E87.6 [facility] [address] [address] Sep, [facility] [address] [address] Sep, Upper respiratory tract infection, unspe cified type J06.9 [facility] [address] [address] Aug, [facility] [address] [address] Aug, Dysuria R30.0 [facility] [address] [address] Aug, [facility] [address] [address] Jul, [facility] [address] [address] Jul, [facility] [address] [address] Jul, [facility] [address] [address] Jul, [facility] [address] [address] Jun, [facility] [address] [address] Jun, [facility] [address] [address] Jun, [facility] [address] [address] May, [facility] [address] [address] May, Bipolar I disorder, most recent episode (or current) mixed, moderate 296.62 [facility] [address] [address] May, [facility] [address] [address] May, Bipolar I disorder, most recent episode (or current) mixed, moderate 296.62 and Major depressive disorder, recurrent episode, severe, specified as with psychotic behavior 296.34 [facility] [address] [address] May, Bipolar I disorder, most recent episode (or current) mixed, moderate 296.62 [facility] [address] [address] May, [facility] [address] [address] Apr, [facility] [address] [address] Apr, [facility] [address] [address] Apr, Unspecified disorder of kidney and urete r 593.9 and Diabetes mellitus type 2, uncontrolled 250.02 [facility] [address] [address] Apr, [facility] [address] [address] Apr, [facility] [address] [address] Apr, [facility] [address] [address] Apr, [facility] [address] [address] Apr, Diabetes mellitus type II, uncontrolled 250.02 [facility] [address] [address] Apr, [facility] [address] [address] Mar, [facility] [address] [address] Mar, [facility] [address] [address] Mar, [facility] [address] [address] Mar, Major depressive disorder, recurrent epi sode, severe, specified as with psychotic behavior 296.34 and Bipolar I disorder, most recent episode (or current) mixed, moderate 296.62 [facility] [address] [address] Mar, Diabetes 250.00 ; Anuria 788.5 ; Nausea and vomiting 787.01 and Diarrhea 787.91 [facility] [address] [address] Mar, Diabetes 250.00 [facility] [address] [address] Mar, [facility] [address] [address] Mar, Diabetes 250.00 [facility] [address] [address] Mar, [facility] [address] [address] Mar, [facility] [address] [address] Mar, [facility] [address] [address] Mar, [facility] [address] [address] Mar, Bipolar I disorder, most recent episode (or current) mixed, moderate 296.62 and Major depressive disorder, recurrent episode, severe, specified as with psychotic behavior 296.34 [facility] [address] [address] Mar, Magnesium deficiency 275.2 ; Hypokalemia 276.8 ; Nausea & vomiting 787.01 and Diabetes mellitus type 2, uncontrolled 250.02 [facility] [address] [address] Feb, [facility] [address] [address] Feb, Bipolar I disorder, most recent episode (or current) mixed, moderate 296.[address] [address] Feb, Nausea and vomiting 787.01 ; Left elbow pain 719.42 ; Anuria 788.5 and Diabetes 250.00 [place] [address] [address] Feb, [address] [address] Feb, Hypopotassemia 276.8 and Hypokalemia [address] [address] Feb, Hypopotassemia 276.8 and Hypokalemia 276 .8 [place] [address] [address] Feb, Seborrheic keratoses 702.[address] [address] Feb, Hypopotassemia 276.8 and Low magnesium l evels 275.2 [place] [address] [address] January, [address] [address] January, [place] [address] [address] January, [facility] [address] [address] January, Scalp lesion 709.9 [facility] [address] [address] January, [facility] [address] [id number] [place] [address] Dec, Tear of medial cartilage or meniscus of knee, current 836.0 and 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 [facility] [id number] [place] [address] Dec, [facility] [address] [address] Dec, [facility] [address] [address] Dec, Squamous cell carcinoma, 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 42 [facility] [address] [address] Dec, [facility] [address] [address] Dec, [facility] [id number] [place] [address] Nov, [facility] [address] [address] Nov, [facility] [id number] [place] [address] Nov, [facility] [id number] [place] [address] Nov, [facility] [address] [id number] [place] [address] Nov, [facility] [address] [address] Nov, [facility] [id number] [place] [address] Nov, [facility] [address] [address] Nov, [facility] [address] [id number] [place] [address] Nov, 2014 [facility] [address] [id number] [place] [address] Nov, [facility] [address] [id number] [place] [address] Nov, [facility] [address] [id number] [place] [address] Nov, [facility] [address] [id number] [place] [address] Oct, 2014 [facility] [address] [id number] [place] [address] Oct, 2014 [facility] [address] [id number] [place] [address] Oct, 2014 [facility] [address] [id number] [place] [address] Oct, 2014 [facility] [address] [id number] [place] [address] Oct, 2014 [facility] [address] [id number] [place] [address] Oct, 2014 [facility] [address] [id number] [place] [address] Oct, 2014 [facility] [address] [id number] [place] [address] Oct, 2014 [facility] [address] [id number] [place] [address] Oct, 2014 [facility] [address] [id number] [place] [address] Sep, [facility] [address] [id number] [place] [address] Sep, [facility] [address] [id number] [place] [address] Sep, [facility] [address] [id number] [place] [address] Sep, [facility] [address] [id number] [place] [address] Sep, [facility] [address] [id number] [place] [address] Sep, [facility] [address] [id number] [place] [address] Sep, [facility] [address] [id number] [place] [address] Sep, [facility] [address] [id number] [place] [address] Sep, [facility] [address] [id number] [place] [address] Sep, [facility] [address] [id number] [place] [address] Sep, [facility] [address] [id number] [place] [address] Sep, [facility] [address] [id number] [place] [address] Sep, [facility] [address] [id number] [place] [address] Sep, [facility] [address] [id number] [place] [address] Sep, [facility] [address] [id number] [place] [address] Sep, [facility] [address] [id number] [place] [address] Aug, [facility] [address] [id number] [place] [address] Aug, [facility] [address] [id number] [place] [address] Aug, [facility] [address] [id number] [place] [address] Aug, [facility] [address] [facility] [id number] [place] [address] Aug, [facility] [address] [facility] [id number] [place] [address] Aug, [facility] [address] [facility] [id number] [place] [address] Aug, [facility] [address] [id number] [place] [address] Aug, [facility] [address] [facility] [id number] [place] [address] Aug, [facility] [address] [id number] [place] [address] Aug, [facility] [address] [id number] [place] [address] Aug, [facility] [address] [place] [id number] Aug, [facility] [address] [id number] [place] [address] Aug, [facility] [address] [id number] [place] [address] Aug, [facility] [address] [id number] [place] [address] Aug, [facility] [address] [id number] [place] [address] Aug, [facility] [address] [id number] [place] [address] Aug, [facility] [address] [facility] [id number] [place] [address] Aug, [facility] [address] [id number] [place] [address] Aug, [facility] [address] [facility] [id number] [place] [address] Aug, [facility] [address] [id number] [place] [address] Aug, [facility] [address] [id number] [place] [address] 08 Aug, 2014 [facility] [address] [id number] [place] [address] Aug, [facility] [address] [id number] [place] [address] Aug, [facility] [address] [id number] [place] [address] Aug, [facility] [address] [id number] [place] [address] Aug, [facility] [address] [id number] [place] [address] Aug, [facility] [address] [id number] [place] [address] Aug, [facility] [address] [id number] [place] [address] Aug, [facility] [address] [id number] [place] [address] Aug, [facility] [address] [id number] [place] [address] Jul, [facility] [address] [id number] [place] [address] Jul, [facility] [address] [id number] [place] [address] Jul, [facility] [address] [id number] [place] [address] Jul, [facility] [address] [id number] [place] [address] Jul, [facility] [address] [id number] [place] [address] Jul, [facility] [address] [id number] [place] [address] Jul, [facility] [address] [id number] [place] [address] Jul, [facility] [address] [facility] [id number] [place] [address] Jul, [facility] [address] [id number] [place] [address] Jul, [facility] [address] [id number] [place] [address] Jun, [facility] [address] [id number] [place] [address] Jun, [facility] [address] [id number] [place] [address] Jun, [facility] [address] [id number] [place] [address] Jun, [facility] [address] [id number] [place] [address] Jun, [facility] [address] [id number] [place] [address] Jun, [facility] [place] [facility] [address] [id number] [place] [address] Jun, [facility] [place] [facility] [address] [id number] [place] [address] Jun, [facility] [place] [facility] [address] [id number] [place] [address] Jun, [facility] [place] [facility] [address] [id number] [place] [address] Jun, [facility] [place] [facility] [address] [id number] [place] [address] May, [facility] [place] [facility] [address] [id number] [place] [address] 29 May, 2014 [facility] [place] [facility] [address] [id number] [place] [address] May, [facility] [place] [facility] [address] [id number] [place] [address] May, 2013 [facility] [place] [facility] [address] [id number] [place] [address] 17 May, 2013 [facility] [place] [facility] [address] [id number] [place] [address] 17 May, 2013 [facility] [place] [facility] [address] [facility] [id number] [place] [address] 15 May, 2013 [facility] [place] [facility] [address] [id number] [place] [address] 15 May, 2013 [facility] [place] [facility] [address] [facility] [id number] [place] [address] 15 May, 2013 [facility] [place] [facility] [address] [id number] [place] [address] 15 May, 2013 [facility] [place] [facility] [address] [id number] [place] [address] 10 May, 2013 [facility] [place] [facility] [address] [id number] [place] [address] 10 May, 2013 [facility] [place] [facility] [address] [id number] [place] [address] 09 May, 2013 [facility] [place] [facility] [address] [id number] [place] [address] 09 May, 2013 [facility] [place] [facility] [address] [id number] [place] [address] 04 May, 2013 [facility] [place] [facility] [address] [id number] [place] [address] May, 2013 [facility] [place] [facility] [address] [id number] [place] [address] Apr, [facility] [place] [facility] [address] [id number] [place] [address] Apr, [facility] [place] [facility] [address] [id number] [place] [address] Apr, [facility] [place] [facility] [address] [id number] [place] [address] Apr, [facility] [place] [facility] [address] [id number] [place] [address] Apr, [facility] [place] [facility] [address] [id number] [place] [address] Apr, [facility] [place] [facility] [address] [facility] [id number] [place] [address] Apr, [facility] [place] [facility] [address] [facility] [id number] [place] [address] Apr, [facility] [place] [facility] [address] [id number] [place] [address] Apr, [facility] [place] [facility] [address] [facility] [id number] [place] [address] Apr, [facility] [place] [facility] [address] [id number] [place] [address] Apr, [facility] [place] [facility] [address] [facility] [id number] [place] [address] Apr, [facility] [place] [facility] [address] [id number] [place] [address] Apr, [facility] [place] [facility] [address] [facility] [id number] [place] [address] Apr, [facility] [place] [facility] [address] [id number] [place] [address] Apr, [facility] [place] [facility] [address] [id number] [place] [address] Mar, [facility] [place] [facility] [address] [id number] [place] [address] Mar, [facility] [place] [facility] [address] [facility] [id number] [place] [address] Mar, [facility] [place] [facility] [address] [id number] [place] [address] Mar, [facility] [place] [facility] [address] [facility] [id number] [place] [address] Mar, [facility] [place] [address] [id number] [place] [address] Mar, [facility] [place] [address] [facility] [id number] [place] [address] Mar, 2013 [facility] [place] [facility] [address] [facility] [id number] [place] [address] Mar, 2013 [facility] [place] [address] [facility] [id number] [place] [address] Mar, 2013 [facility] [place] [facility] [address] [facility] [address] [id number] [place] [address] Mar, 2013 [facility] [place] [address] [facility] [id number] [place] [address] Mar, 2013 [facility] [place] [address] [facility] [id number] [place] [address] Mar, 2013 [facility] [place] [facility] [address] [id number] [place] [address] Mar, 2013 [facility] [place] [facility] [id number] [place] [address] Mar, 2013 [facility] [place] [facility] [address] [id number] [place] [address] Mar, 2013 [facility] [place] [facility] [address] [facility] [id number] [place] [address] Mar, 2013 [facility] [place] [facility] [address] [id number] [place] [address] Mar, 2013 [facility] [place] [facility] [address] [id number] [place] [address] Mar, 2013 [facility] [place] [facility] [address] [id number] [place] [address] Feb, [facility] [place] [facility] [address] [facility] [id number] [place] [address] Feb, [facility] [place] [facility] [address] [facility] [id number] [place] [address] Feb, [facility] [place] [facility] [address] [id number] [place] [address] Feb, 2013 [facility] [place] [facility] [address] [id number] [place] [address] Feb, 2013 [facility] [place] [facility] [address] [facility] [id number] [place] [address] Feb, [facility] [place] [address] [facility] [id number] [place] [address] Feb, [facility] [place] [address] [facility] [id number] [place] [address] Feb, [facility] [place] [facility] [address] [id number] [place] [address] Feb, [facility] [place] [facility] [address] [facility] [id number] [place] [address] Feb, [facility] [place] [address] [facility] [id number] [place] [address] Feb, [facility] [place] [facility] [address] [id number] [place] [address] Feb, [facility] [place] [facility] [address] [id number] [place] [address] Feb, [facility] [place] [facility] [address] [id number] [place] [address] Feb, [facility] [place] [facility] [address] [id number] [place] [address] January, [facility] [place] [facility] [address] [id number] [place] [address] January, [facility] [place] [address] [id number] [place] [address] January, [facility] [place] [address] [id number] [place] [address] January, [facility] [place] [address] [facility] [id number] [place] [address] January, [facility] [place] [address] [id number] [place] [address] January, [facility] [place] [address] [id number] [place] [address] January, [facility] [place] [facility] [address] [id number] [place] [address] January, [facility] [place] [facility] [address] [id number] [place] [address] January, [facility] [place] [address] [id number] [place] [address] January, [facility] [place] [facility] [address] [id number] [place] [address] January, [facility] [place] [address] [id number] [place] [address] January, [facility] [place] [facility] [address] [facility] [id number] [place] [address] January, [facility] [place] [facility] [address] [id number] [place] [address] January, [facility] [place] [id number] [place] [address] Dec, [facility] [place] [address] [id number] [place] [address] Dec, [facility] [place] [address] [id number] [place] [address] Dec, [facility] [place] [id number] [place] [address] Dec, [facility] [place] [address] [id number] [place] [address] Dec, [facility] [place] [address] [id number] [place] [address] Dec, [facility] [place] [address] [id number] [place] [address] Dec, [facility] [place] [address] [id number] [place] [address] Dec, [facility] [place] [address] [id number] [place] [address] Dec, [facility] [place] [address] [id number] [place] [address] Dec, [facility] [place] [address] [id number] [place] [address] Nov, [facility] [place] [address] [facility] [id number] [place] [address] Nov, [facility] [place] [address] [facility] [id number] [place] [address] Nov, [facility] [place] [facility] [address] [id number] [place] [address] Nov, [facility] [place] [address] [id number] [place] [address] Nov, [facility] [place] [address] [facility] [id number] [place] [address] Nov, [facility] [place] [address] [id number] [place] [address] Nov, [facility] [place] [address] [id number] [place] [address] Nov, [facility] [place] [facility] [address] [id number] [place] [address] Nov, [facility] [place] [address] [id number] [place] [address] Nov, [facility] [place] [facility] [address] [id number] [place] [address] Oct, [facility] [place] [facility] [address] [id number] [place] [address] Oct, [facility] [place] [facility] [address] [id number] [place] [address] Oct, [facility] [place] [facility] [address] [facility] [id number] [place] [address] Oct, [facility] [place] [facility] [address] [id number] [place] [address] Oct, [facility] [place] [facility] [address] [id number] [place] [address] Oct, [facility] [place] [facility] [address] [id number] [place] [address] 14 Oct, 2013 [facility] [place] [facility] [address] [id number] [place] [address] 14 Oct, 2013 [facility] [place] [facility] [address] [id number] [place] [address] Oct, [facility] [place] [facility] [address] [facility] [id number] [place] [address] Oct, [facility] [place] [facility] [address] [id number] [place] [address] Oct, [facility] [place] [facility] [address] [facility] [id number] [place] [address] Oct, [facility] [place] [facility] [address] [facility] [id number] [place] [address] Oct, [facility] [place] [facility] [address] [id number] [place] [address] Oct, [facility] [place] [facility] [address] [id number] [place] [address] Sep, [facility] [place] [facility] [address] [id number] [place] [address] Sep, [facility] [place] [facility] [address] [id number] [place] [address] Sep, [facility] [place] [facility] [address] [id number] [place] [address] Sep, [facility] [place] [facility] [address] [id number] [place] [address] Sep, [facility] [place] [facility] [address] [facility] [id number] [place] [address] Sep, [facility] [place] [facility] [address] [facility] [id number] [place] [address] Sep, [facility] [place] [facility] [address] [id number] [place] [address] Sep, [facility] [place] [facility] [address] [id number] [place] [address] Sep, [facility] [place] [facility] [address] [id number] [place] [address] 08 Sep, 2013 [facility] [place] [facility] [address] [id number] [place] [address] Aug, [facility] [place] [facility] [address] [id number] [place] [address] Aug, [facility] [place] [facility] [address] [id number] [place] [address] Jul, [facility] [place] [facility] [address] [id number] [place] [address] Jul, [facility] [place] [facility] [address] [id number] [place] [address] Jul, [facility] [place] [facility] [address] [id number] [place] [address] Jul, [facility] [place] [facility] [address] [id number] [place] [address] Jul, [facility] [place] [facility] [address] [id number] [place] [address] Jul, [facility] [place] [facility] [address] [id number] [place] [address] Jul, [facility] [place] [facility] [address] [id number] [place] [address] Jul, [facility] [place] [facility] [address] [id number] [place] [address] Jul, [facility] [place] [facility] [address] [id number] [place] [address] Jul, [facility] [place] [facility] [address] [id number] [place] [address] Jul, [facility] [place] [facility] [address] [id number] [place] [address] Jul, [facility] [place] [facility] [address] [id number] [place] [address] Jul, [facility] [place] [facility] [address] [id number] [place] [address] Jul, [facility] [place] [facility] [address] [id number] [place] [address] Jul, 2012 [facility] [place] [facility] [address] [id number] [place] [address] Jul, 2012 [facility] [place] [facility] [address] [id number] [place] [address] Jul, [facility] [place] [facility] [address] [facility] [id number] [place] [address] Jul, [facility] [place] [facility] [address] [id number] [place] [address] Jul, 2012 [facility] [place] [facility] [address] [id number] [place] [address] Jun, 2012 [facility] [place] [facility] [id number] [place] [address] Jun, 2012 [facility] [place] [facility] [address] [id number] [place] [address] Jun, 2012 [facility] [place] [facility] [address] [id number] [place] [address] Jun, 2012 [facility] [place] [facility] [id number] [place] [address] Jun, 2012 [facility] [place] [facility] [id number] [place] [address] Jun, 2012 [facility] [place] [facility] [address] [id number] [place] [address] Jun, 2012 [facility] [place] [facility] [address] [id number] [place] [address] Jun, 2012 [facility] [place] [facility] [address] [id number] [place] [address] Jun, [facility] [place] [facility] [address] [id number] [place] [address] Jun, [facility] [place] [facility] [address] [id number] [place] [address] Jun, [facility] [place] [facility] [address] [facility] [address] [id number] [place] [address] May, 2012 [facility] [place] [facility] [address] [id number] [place] [address] 25 May, 2012 [facility] [place] [facility] [address] [facility] [id number] [place] [address] 19 May, 2012 [facility] [place] [facility] [address] [facility] [id number] [place] [address] 17 May, 2012 [facility] [place] [facility] [address] [id number] [place] [address] 11 May, 2012 [facility] [place] [facility] [address] [facility] [id number] [place] [address] 10 May, 2012 [facility] [place] [facility] [address] [id number] [place] [address] May, 2012 [facility] [place] [facility] [address] [facility] [id number] [place] [address] 05 May, 2012 [facility] [place] [facility] [address] [id number] [place] [address] Apr, [facility] [place] [facility] [address] [facility] [id number] [place] [address] Apr, [facility] [place] [facility] [address] [id number] [place] [address] Apr, [facility] [place] [facility] [address] [id number] [place] [address] Apr, [facility] [place] [facility] [address] [id number] [place] [address] Apr, [facility] [place] [facility] [address] [facility] [id number] [place] [address] Mar, [facility] [place] [facility] [address] [id number] [place] [address] Mar, 2012 [facility] [place] [facility] [address] [facility] [id number] [place] [address] Mar, [facility] [place] [facility] [address] [id number] [place] [address] Mar, [facility] [place] [facility] [address] [facility] [id number] [place] [address] Mar, [facility] [place] [facility] [address] [id number] [place] [address] Mar, [facility] [place] [facility] [address] [id number] [place] [address] Mar, [facility] [place] [facility] [address] [id number] [place] [address] Mar, [facility] [place] [facility] [address] [id number] [place] [address] Feb, [facility] [place] [facility] [address] [id number] [place] [address] Feb, [facility] [place] [facility] [address] [id number] [place] [address] January, [facility] [place] [facility] [address] [id number] [place] [address] January, [facility] [place] [facility] [address] [id number] [place] [address] Dec, [facility] [place] [facility] [address] [id number] [place] [address] Dec, [facility] [place] [facility] [address] [id number] [place] [address] Nov, [facility] [place] [facility] [address] [id number] [place] [address] Nov, [facility] [place] [facility] [address] [id number] [place] [address] Nov, [facility] [place] [facility] [address] [id number] [place] [address] Nov, [facility] [place] [facility] [address] [id number] [place] [address] Oct, [facility] [place] [facility] [address] [id number] [place] [address] Oct, [facility] [place] [facility] [address] [id number] [place] [address] Oct, [facility] [place] [facility] [address] [id number] [place] [address] 26 Oct, 2012 [facility] [address] [id number] [place] [address] 16 Oct, 2012 [facility] [address] [id number] [place] [address] 14 Oct, 2012 [facility] [address] [id number] [place] [address] 08 Oct, 2012 [facility] [address] [id number] [place] [address] 07 Oct, 2012 [facility] [address] [id number] [place] [address] Oct, [facility] [address] [id number] [place] [address] 30 Sep, 2012 [facility] [address] [id number] [place] [address] Sep, [facility] [address] [id number] [place] [address] Sep, [facility] [place] [facility] [address] [id number] [place] [address] Sep, [facility] [address] [id number] [place] [address] Sep, [facility] [address] [id number] [place] [address] Sep, [facility] [place] [facility] [address] [id number] [place] [address] Sep, [facility] [place] [facility] [address] [id number] [place] [address] Sep, [facility] [place] [facility] [address] [id number] [place] [address] Aug, [facility] [place] [facility] [address] [id number] [place] [address] Aug, [facility] [place] [facility] [address] [id number] [place] [address] Aug, [facility] [place] [facility] [address] [id number] [place] [address] Aug, [facility] [place] [facility] [address] [id number] [place] [address] Aug, [facility] [place] [facility] [address] [id number] [place] [address] Aug, [facility] [place] [facility] [address] [id number] [place] [address] Aug, [facility] [place] [facility] [address] [id number] [place] [address] Aug, [facility] [place] [facility] [address] [id number] [place] [address] Jul, [facility] [place] [facility] [address] [id number] [place] [address] Jul, [facility] [place] [facility] [address] [id number] [place] [address] Jul, [facility] [place] [facility] [address] [id number] [place] [address] Jul, [facility] [place] [facility] [address] [id number] [place] [address] Jul, [facility] [place] [facility] [address] [id number] [place] [address] Jul, [facility] [place] [facility] [address] [id number] [place] [address] Jun, [facility] [place] [facility] [address] [id number] [place] [address] Jun, [facility] [place] [facility] [address] [id number] [place] [address] Jun, [facility] [place] [facility] [address] [id number] [place] [address] Jun, [facility] [place] [facility] [address] [id number] [place] [address] Jun, [facility] [place] [facility] [address] [id number] [place] [address] Jun, [facility] [place] [facility] [address] [id number] [place] [address] Jun, [facility] [place] [facility] [address] [id number] [place] [address] Jun, [facility] [place] [facility] [address] [id number] [place] [address] Jun, [facility] [place] [id number] [place] [address] May, [facility] [id number] [place] [address] 24 May, 2012 [facility] [id number] [place] [address] May, [facility] [id number] [place] [address] Apr, [facility] [id number] [place] [address] Apr, [facility] [id number] [place] [address] Apr, [facility] [id number] [place] [address] Apr, [facility] [id number] [place] [address] Apr, [facility] [id number] [place] [address] Apr, [facility] [id number] [place] [address] Mar, [facility] [id number] [place] [address] Mar, [facility] [id number] [place] [address] Mar, [facility] [id number] [place] [address] Mar, [facility] [id number] [place] [address] Feb, [facility] [id number] [place] [address] Feb, [facility] [id number] [place] [address] Feb, [facility] [id number] [place] [address] Feb, [facility] [id number] [place] [address] Feb, [facility] [id number] [place] [address] January, [facility] [id number] [place] [address] January, [facility] [id number] [place] [address] January, [facility] [id number] [place] [address] January, [facility] [id number] [place] [address] January, [facility] [id number] [place] [address] January, [facility] [id number] [place] [address] Dec, [facility] [id number] [place] [address] Dec, [facility] [id number] [place] [address] Dec, [facility] [id number] [place] [address] Dec, [facility] [id number] [place] [address] Dec, [facility] [id number] [place] [address] 27 Nov, 2011 [facility] [id number] [place] [address] 14 Nov, 2011 [facility] [id number] [place] [address] 12 Nov, 2011 [facility] [id number] [place] [address] 07 Nov, 2011 [facility] [id number] [place] [address] 29 Oct, 2011 [facility] [id number] [place] [address] 28 Oct, 2011 [facility] [id number] [place] [address] 24 Oct, 2011 [facility] [id number] [place] [address] Oct, [facility] [id number] [place] [address] Oct, [facility] [id number] [place] [address] Sep, [facility] [id number] [place] [address] Sep, [facility] [id number] [place] [address] Sep, [facility] [id number] [place] [address] Sep, [facility] [id number] [place] [address] Sep, [facility] [id number] [place] [address] Sep, [facility] [id number] [place] [address] Aug, [facility] [id number] [place] [address] Aug, [facility] [id number] [place] [address] Aug, [facility] [id number] [place] [address] Jul, [facility] [id number] [place] [address] Jul, [facility] [id number] [place] [address] Jul, [facility] [id number] [place] [address] Jul, [facility] [id number] [place] [address] Jun, [facility] [id number] [place] [address] Jun, [facility] [id number] [place] [address] Jun, [facility] [id number] [place] [address] Jun, [facility] [id number] [place] [address] Jun, [facility] [id number] [place] [address] Jun, [facility] [id number] [place] [address] Mar, [facility] [id number] [place] [address] Dec, [facility] [id number] [place] [address] Dec, [facility] [id number] [place] [address] 18 Nov, 2010 [facility] [id number] [place] [address] 16 Nov, 2010 [facility] [id number] [place] [address] 10 Sep, 2010 [facility] [id number] [place] [address] 31 Aug, 2010 [facility] [id number] [place] [address] Aug, [facility] [id number] [place] [address] Aug, [facility] [id number] [place] [address] 29 Aug, 2010 [facility] [id number] [place] [address] Aug, [facility] [id number] [place] [address] 14 Aug, 2010 [facility] [id number] [place] [address] 08 Aug, 2010 [facility] [id number] [place] [address] 08 Aug, 2010 [facility] [id number] [place] [address] 07 Aug, 2010 [facility] [id number] [place] [address] 06 Aug, 2010 [facility] [id number] [place] [address] 06 Aug, 2010 [facility] [id number] [place] [address] Aug, [facility] [id number] [place] [address] 30 Jul, 2010 [facility] [id number] [place] [address] Jul, [facility] [id number] [place] [address] 30 Jul, 2010 [facility] [id number] [place] [address] 17 Jul, 2010 [facility] [id number] [place] [address] 08 Jul, 2010 [facility] [id number] [place] [address] Jul, [facility] [id number] [place] [address] Jun, [facility] [id number] [place] [address] Jun, [facility] [id number] [place] [address] Jun, [facility] [id number] [place] [address] Jun, [facility] [id number] [place] [address] Apr, [facility] [id number] [place] [address] Mar, [facility] [id number] [place] [address] Feb, [facility] [id number] [place] [address] January, [facility] [id number] [place] [address] Dec, [facility] [id number] [place] [address] Nov, [facility] [id number] [place] [address] Aug, [facility] [id number] [place] [address] Aug, [facility] [id number] [place] [address] Aug, [facility] [id number] [place] [address] Jul, [facility] [id number] [place] [address] Jul, [facility] [id number] [place] [address] Jul, [facility] [id number] [place] [address] Jun, [facility] [id number] [place] [address] Jun, [facility] [id number] [place] [address] Jun, [facility] [id number] [place] [address] Jun, [facility] [address] [address] Jun, [facility] [id number] [place] [address] Jun, [facility] [id number] [place] [address] Apr, [facility] [id number] [place] [address] Apr, [facility] [id number] [place] [address] Feb, [facility] [id number] [place] [address] January, [facility] [id number] [place] [address] Dec, IMMUNIZATIONS No Known Immunizations SOCIAL HISTORY Never Assessed REASON FOR VISIT PLAN OF CARE VITAL SIGNS MEDICATIONS Unknown Medications RESULTS No Results PROCEDURES Procedure Date Ordered Result Body Site PSYTX PT&/FAMILY 45 MINUTES March 25, 2014 INSTRUCTIONS MEDICATIONS ADMINISTERED No Known Medications [...] release (Left) 2000 Surgical History EGD ([facility]) 2009 Surgical History colonoscopy 2009 ([facility]), 2013 ([place] ) Surgical History heart cath: CAD w/ [...] History inability to urinate 09/16/15 Hospitalization History [facility] inpatient mental health ea rly 2000's Hospitalization History hyperkalemia 10/2017 Hospitalization History fluid in lung
--- OUTSIDE RECORDS SUMMARY | 2020-03-01 17:00 | XMS REPORT ---
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 Name Role Phone NOEMI WASHBURN Unavailable PROBLEMS Type Condition ICD9-CM Code NSX27-LF Code Onset Dates Condition S tatus SNOMED Code Problem DM neuro manif type II E11.49 Active 13075357 Problem Chronic pain G89.29 Active 3154523 1 Problem Diabetes E11.9 Active 14756297 Problem Reactive airway disease J45.909 Active 667840279141 Problem Leukocytosis D72.829 Active 0310624 06 Problem Insomnia, unspecified type G47.00 Act sharon 405205352 Problem Bipolar I disorder, most recent episode (or curr ent) mixed, moderate F31.62 Active 06811343 Problem Primary osteoarthritis of right knee M17.11 Active 357762758746356 Problem Cough R05 Active 89751294 Problem Pure hypercholesterolemia E78.00 Acti ve 500621969 Problem Dysuria R30.0 Active 67346722 Problem Benign prostatic hyperplasia with lower urinary tract symptoms, unspecified morphology N40.1 Active 44343 6007 Problem Eustachian tube dysfunction, unspecified laterality H69.80 Active 19371052 Problem Polyneuropathy associated with underlying disease G63 Active 711244799 Problem Diabetic polyneuropathy associated with type 2 d iabetes mellitus E11.42 Active 35266107 Problem Anemia of chronic illness D63.8 Acti ve 531417715 Problem Chronic lymphocytic leukemia C91.10 A ctive 85494711 Problem Bilateral primary osteoarthritis of knee M17.0 Active 402456537 Problem 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 Active 643814508 Problem Eye exam abnormal R93.8 Active 16 9830492 Problem Retinal edema H35.81 Active 473642 6 Problem Lymphocytosis D72.820 Active 860048 09 Problem Bipolar disorder, in partial remission, most rec ent episode depressed F31.75 Active 69216926 Problem Hypokalemia E87.6 Active 98290228 Problem Falling R29.6 Active 141932091 Problem Pressure ulcer of other site, stage 3 L89.893 Active 803366302 Problem Other iron deficiency anemia D50.8 A ctive 41117967 Problem Mild cognitive impairment G31.84 Acti ve 305639131 Problem Skin cancer C44.90 Active 35824025 7 Problem intermediate (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 Z79.4 Active 757117409 Problem Morbid obesity E66.01 Active 57951 6002 Problem Mood disorder F39 Active 425187 05 Problem Anxiety F41.9 Active 17053755 Problem Essential hypertension I10 Active 84443835 Problem Bipolar disorder F31.9 Active 137 68350 Problem Chronic diastolic (congestive) heart failure I50.3 2 Active 257337939 Problem Psychophysiological insomnia F51.04 A ctive 422461492 Problem Type 2 diabetes mellitus with diabetic neuropathy, uns pecified E11.40 Active 09449467 ALLERGIES No Information ENCOUNTERS Encounter Location Date Diagnosis [place] [address] [address] Oct, [place] [address] [address] Sep, [place] [address] [address] Sep, [place] [address] [address] Sep, Bipolar disorder, in partial remission, most recent episode depressed F31.75 and Mild cognitive impairment G31.84 [facility] [place] [address] [address] Sep, Mood disorder F39 [facility] [place] [address] [address] Sep, [place] [address] [address] Sep, Mood disorder F39 [facility] [place] [address] [address] Sep, [facility] [place] [address] [place] [address] Aug, Mood disorder F39 [facility] [place] [address] [facility] [place] [address] Aug, [facility] [place] [address] [id number] [place] [address] Aug, [facility] [place] [address] [id number] [place] [address] Aug, [facility] [place] [address] [facility] [place] [address] Aug, [facility] [place] [address] [id number] [place] [address] Aug, [facility] [place] [address] [id number] [place] [address] Aug, [facility] [place] [address] [facility] [place] [address] Aug, [facility] [place] [address] [facility] [place] [address] Aug, Essential hypertension I10 [facility] [place] [address] [facility] [place] [address] Aug, Bipolar disorder, in partial remission, most recent episode depressed F31.75 and Mild cognitive impairment G31.84 [facility] [place] [address] [facility] [place] [address] Aug, Mood disorder F39 [facility] [place] [address] [facility] [place] [address] Aug, [facility] [place] [address] [facility] [place] [address] Aug, Bipolar disorder, in partial remission, most recent episode depressed F31.75 and Mild cognitive impairment G31.84 [facility] [place] [address] [facility] [place] [address] Jul, Bipolar disorder, in partial remission, most recent episode depressed F31.75 and Mild cognitive impairment G31.84 [facility] [place] [address] [address] Jul, Psychophysiological insomnia F51.04 [facility] [place] [address] [address] Jul, [facility] [place] [address] [address] Jul, [facility] [place] [address] [address] Jul, [facility] [place] [address] [address] Jul, [facility] [place] [address] [address] Jul, [facility] [place] [address] [address] Jul, [facility] [place] [address] [address] Jul, Bipolar disorder, in partial remission, most recent episode depressed F31.75 and Mild cognitive impairment G31.84 [facility] [place] [address] [address] Jul, Chronic pain G89.29 ; Diabetes E11.9 ; E ssential hypertension I10 ; Ill feeling R68.89 ; Local infection of the skin and subcutaneous tissue, unspecified L08.9 and Other injury of unspecified body region, initial encounter T14.8XXA [facility] [place] [address] [address] Jun, Bipolar disorder, in partial remission, most recent episode depressed F31.75 and Mild cognitive impairment G31.84 [facility] [place] [address] [address] Jun, [facility] [place] [address] [address] Jun, Bipolar disorder, in partial remission, most recent episode depressed F31.75 and Mild cognitive impairment G31.84 [facility] [place] [address] [address] Jun, Psychophysiological insomnia F51.04 [place] [address] [address] Jun, Psychophysiological insomnia F51.04 ; Ch ronic pain G89.29 ; Bipolar I disorder, most recent episode (or current) mixed, moderate F31.62 ; 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 ; Polyneuropathy associated with underlying disease G63 ; Type 2 diabetes mellitus with diabetic neuropathy, unspecified E11.40 ; rn long term care (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 Z79.4 and Hyperglycemia R73.9 [place] [address] [address] Jun, Bipolar disorder, in partial remission, most recent episode depressed F31.75 and Mild cognitive impairment G31.84 [place] [address] [address] Jun, [place] [address] [address] Jun, Bipolar disorder F31.9 [place] [address] [address] May, Bipolar disorder, in partial remission, most recent episode depressed F31.75 and Mild cognitive impairment G31.84 [place] [address] [address] May, [place] [address] [address] Apr, Chronic pain G89.29 and Bipolar disorder F31.9 [place] [address] [address] Mar, Bipolar disorder F31.9 and Chronic pain G89.29 [place] [address] [address] Feb, Bipolar disorder F31.9 [place] [address] [address] Feb, Cellulitis of right upper extremity L03. 113 and Skin abrasion T14.8XXA [facility] [place] [address] [address] Feb, Bipolar disorder, in partial remission, most recent episode depressed F31.75 and Mild cognitive impairment G31.84 [facility] [place] [address] [address] Feb, Chronic pain G89.29 [facility] [place] [address] [address] Feb, Bipolar disorder, in partial remission, most recent episode depressed F31.75 and Mild cognitive impairment G31.84 [facility] [place] [address] [address] January, Bipolar disorder, in partial remission, most recent episode depressed F31.75 and Mild cognitive impairment G31.84 [place] [address] [address] January, Chronic pain G89.29 and Bipolar disorder F31.9 [facility] [place] [address] [address] January, Bipolar disorder, in partial remission, most recent episode depressed F31.75 and Mild cognitive impairment G31.84 [facility] [place] [address] [address] Dec, [facility] [place] [address] [address] Dec, Chronic pain G89.29 and Bipolar disorder F31.9 [facility] [place] [address] [address] Dec, Edema of both lower extremities R60.0 [facility] [place] [address] [address] Dec, Bipolar disorder F31.9 [facility] [place] [address] [address] Dec, Bipolar disorder, in partial remission, most recent episode depressed F31.75 and Mild cognitive impairment G31.84 [place] [address] [address] Nov, [place] [address] [address] Nov, Chronic pain G89.29 [place] [address] [address] Nov, Bipolar disorder, in partial remission, most recent episode depressed F31.75 and Mild cognitive impairment G31.84 [place] [address] [address] Nov, Bipolar disorder F31.9 [place] [address] [address] Nov, Encounter for Medicare annual wellness e [...] unspecified morphology N40.1 and Essential hypertension I10 [place] [address] [address] Oct, Chronic pain G89.29 [place] [address] [address] Oct, Diabetes E11.9 [place] [address] [address] Oct, Bipolar I disorder, most recent episode (or current) mixed, moderate F31.62 and Mild cognitive impairment G31.84 [place] [address] [address] Oct, Bipolar I disorder, most recent episode (or current) mixed, moderate F31.62 and Mild cognitive impairment G31.84 [place] [address] [address] Sep, Bipolar I disorder, most recent episode (or current) mixed, moderate F31.62 and Mild cognitive impairment G31.84 [place] [address] [address] Sep, [place] [address] [address] Sep, Diabetes E11.9 ; Hypoxia R09.02 ; Hyperg lycemia R73.9 ; Therapeutic drug monitoring Z51.81 ; BMI 50.0-59.9, adult Z68.43 and Skin cancer C44.90 [place] [address] [address] Sep, Chronic pain G89.[address] [address] Sep, Bipolar I disorder, most recent episode (or current) mixed, moderate F31.62 [place] [address] [address] Sep, [place] [address] [address] Sep, [place] [address] [address] Aug, Chronic pain G89.[address] [address] Aug, Bipolar I disorder, most recent episode (or current) mixed, moderate F31.[address] [address] Aug, Bipolar I disorder, most recent episode (or current) mixed, moderate F31.62 and Mild cognitive impairment G31.84 [place] [address] [address] Jul, [address] [address] Jul, Chronic pain G89.29 [facility] [place] [address] [address] Jul, Bipolar I disorder, most recent episode (or current) mixed, moderate F31.62 and Mild cognitive impairment G31.84 [facility] [place] [address] [address] Jul, Bipolar I disorder, most recent episode (or current) mixed, moderate F31.62 and MCI (mild cognitive impairment) G31.84 [facility] [place] [address] [address] Jul, [facility] [place] [address] [address] Jul, [facility] [place] [address] [address] Jul, Bipolar I disorder, most recent episode (or current) mixed, moderate F31.62 [facility] [place] [address] [address] Jul, Chronic pain G89.29 [facility] [place] [address] [address] Jun, Bipolar I disorder, most recent episode (or current) mixed, moderate F31.62 [facility] [place] [address] [address] Jun, Pre-procedure lab exam Z01.812 [facility] [place] [address] [place] [id number] [place] [address] Jun, [facility] [address] [facility] [place] [id number] Jun, [facility] [place] [address] [address] Jun, [facility] [place] [address] [place] [address] [place] [address] Jun, Forgetfulness R68.89 ; Pre-syncope R55 ; Localized edema R60.0 ; Other iron deficiency anemia D50.8 and BMI 50.0-59.9, adult Z68.43 [place] [address] [address] Jun, Chronic pain G89.29 [place] [address] [address] Jun, Chronic pain G89.29 [place] [address] [address] Jun, Bipolar I disorder, most recent episode (or current) mixed, moderate F31.62 [place] [address] [address] May, Chronic pain G89.29 [place] [address] [address] Apr, [place] [address] [address] Apr, Chronic pain G89.29 [place] [address] [address] Apr, Primary osteoarthritis of right knee M17 .11 [place] [address] [address] Mar, [place] [address] [address] Mar, BMI 50.0-59.9, adult Z68.43 and Bipolar disorder, in partial remission, most recent episode depressed F31.75 [place] [address] [address] Mar, Diabetes E11.9 ; Pure hypercholesterolem ia E78.00 ; Essential hypertension I10 ; Nausea with vomiting, unspecified R11.2 and Headache, unspecified headache type R51 [place] [address] [address] Mar, Bipolar I disorder, most recent episode (or current) mixed, moderate F31.62 [facility] [place] [address] [address] Mar, Bipolar I disorder, most recent episode (or current) mixed, moderate F31.62 [facility] [place] [address] [address] Mar, Chronic pain G89.29 [facility] [place] [address] [address] Mar, Bipolar I disorder, most recent episode (or current) mixed, moderate F31.62 [place] [address] [address] 18 Feb, 2018 Bipolar I disorder, most recent episode (or current) mixed, moderate F31.62 [place] [address] [address] 14 Feb, 2018 Chronic pain G89.29 [place] [address] [address] Feb, Decubitus ulcer of right foot, stage 3 L 89.893 and BMI 50.0-59.9, adult Z68.43 [place] [address] [address] 04 Feb, 2018 Bipolar I disorder, most recent episode (or current) mixed, moderate F31.62 [place] [address] [address] Feb, [place] [address] [address] January, [place] [address] [address] January, Chronic pain G89.29 [facility] [place] [address] [address] January, Bipolar I disorder, most recent episode (or current) mixed, moderate F31.62 [place] [address] [address] January, Bipolar I disorder, most recent episode (or current) mixed, moderate F31.62 [place] [address] [address] Dec, Bipolar I disorder, most recent episode (or current) mixed, moderate F31.62 and BMI 50.0-59.9, adult Z68.43 [place] [address] [address] Dec, Bipolar I disorder, most recent episode (or current) mixed, moderate F31.62 [place] [address] [address] Dec, Chronic pain G89.29 [place] [address] [address] Dec, DM neuro manif type II E11.49 ; Right fl ank pain R10.9 ; intermediate 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 Z79.891 ; Encounter for medication monitoring Z51.81 and BMI 50.0-59.9, adult Z68.43 [place] [address] [address] Dec, Bipolar I disorder, most recent episode (or current) mixed, moderate F31.62 [place] [address] [address] Nov, Bipolar I disorder, most recent episode (or current) mixed, moderate F31.62 [place] [address] [address] Nov, Chronic pain G89.29 [place] [address] [address] Nov, Bipolar I disorder, most recent episode (or current) mixed, moderate F31.62 [place] [address] [address] Nov, Hypokalemia E87.6 [place] [address] [address] Nov, Bipolar I disorder, most recent episode (or current) mixed, moderate F31.62 [facility] [place] [address] [address] Oct, Chronic pain G89.29 [facility] [place] [address] [address] Oct, BMI 50.0-59.9, adult Z68.43 and Bipolar I disorder, most recent episode (or current) mixed, moderate F31.62 [place] [address] [address] Oct, Bipolar I disorder, most recent episode (or current) mixed, moderate F31.62 [place] [address] [address] Oct, [place] [address] [address] Oct, Hypokalemia E87.6 [place] [address] [address] Oct, DM neuro manif type II E11.49 [place] [address] [address] Oct, Bipolar I disorder, most recent episode (or current) mixed, moderate F31.62 [place] [address] [address] Oct, Bipolar I disorder, most recent episode (or current) mixed, moderate F31.62 [place] [address] [address] 14 Oct, 2017 Hyperkalemia E87.5 ; Falling R29.6 ; BMI 50.0-59.9, adult Z68.43 and Acute left ankle pain M25.572 [place] [address] [address] 08 Oct, 2017 DM neuro manif type II E11.49 [place] [address] [address] Oct, [place] [address] [address] Sep, Chronic pain G89.29 [place] [address] [address] Sep, [place] [address] [address] Sep, Bilateral primary osteoarthritis of knee M17.0 [place] [address] [address] Sep, Generalized edema R60.[address] [address] Sep, Bipolar I disorder, most recent episode (or current) mixed, moderate F31.62 [place] [address] [address] Sep, Hypoxia R09.02 ; Other hypervolemia E87. 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 ; Anemia of chronic illness D63.8 and BMI 50.0-59.9, adult Z68.43 [place] [address] [address] Sep, [place] [address] [address] Sep, Bipolar I disorder, most recent episode (or current) mixed, moderate F31.62 [place] [address] [address] Aug, Chronic pain G89.29 [place] [address] [address] Aug, Generalized edema R60.1 [place] [address] [address] Aug, [address] [address] Aug, [place] [address] [place] [address] Aug, Bipolar I disorder, most recent episode (or current) mixed, moderate F31.62 [place] [address] [place] [address] Aug, Bipolar I disorder, most recent episode (or current) mixed, moderate F31.62 [place] [address] [address] Aug, Chronic pain G89.29 [place] [address] [address] Jul, Bipolar I disorder, most recent episode (or current) mixed, moderate F31.62 [place] [address] [address] Jul, Bipolar I disorder, most recent episode (or current) mixed, moderate F31.62 and BMI 60.0-69.9, adult Z68.44 [place] [address] [address] Jul, Bipolar I disorder, most recent episode (or current) mixed, moderate F31.62 [place] [address] [address] Jul, Chronic pain G89.29 [place] [address] [address] Jul, Bipolar I disorder, most recent episode (or current) mixed, moderate F31.62 [place] [address] [address] Jun, Polyneuropathy associated with underlyin g disease G63 and Diabetes E11.9 [place] [address] [address] 16 Jun, 2017 Bipolar I disorder, most recent episode (or current) mixed, moderate F31.62 [place] [address] [address] Jun, Chronic pain G89.29 [place] [address] [address] May, Bipolar I disorder, most recent episode (or current) mixed, moderate F31.62 [place] [address] [address] May, Bipolar I disorder, most recent episode (or current) mixed, moderate F31.62 [place] [address] [address] 20 May, 2017 Diabetic polyneuropathy associated with type 2 diabetes mellitus E11.42 [place] [address] [place] [address] 18 May, 2017 Bipolar I disorder, most recent episode (or current) mixed, moderate F31.62 [place] [address] [address] May, Bipolar I disorder, most recent episode (or current) mixed, moderate F31.62 [place] [address] [address] May, Chronic pain G89.29 [place] [address] [address] Apr, Bipolar I disorder, most recent episode (or current) mixed, moderate F31.62 [place] [address] [address] Apr, [place] [address] [address] Apr, Chronic pain G89.29 and DM neuro manif t ype II E11.49 [place] [address] [address] Apr, [place] [address] [address] Apr, Bipolar I disorder, most recent episode (or current) mixed, moderate F31.62 [place] [address] [address] Apr, Chronic pain G89.29 [facility] [place] [address] [address] Apr, Iliotibial band syndrome, left M76.32 [facility] [place] [address] [address] Apr, Bipolar I disorder, most recent episode (or current) mixed, moderate F31.62 [facility] [place] [address] [address] Mar, Bipolar I disorder, most recent episode (or current) mixed, moderate F31.62 [place] [address] [address] Mar, Bipolar I disorder, most recent episode (or current) mixed, moderate F31.62 [place] [address] [address] Mar, [place] [address] [address] Mar, Bipolar I disorder, most recent episode (or current) mixed, moderate F31.62 [place] [address] [address] Mar, Chronic pain G89.29 [facility] [place] [address] [address] Mar, Bipolar I disorder, most recent episode (or current) mixed, moderate F31.62 [place] [address] [address] Mar, Bipolar I disorder, most recent episode (or current) mixed, moderate F31.62 [place] [address] [address] Mar, Acute pain of left knee M25.562 ; Left h ip pain M25.552 ; Generalized edema R60.1 and Tongue swelling R22.0 [place] [address] [address] Mar, [facility] [place] [address] [address] Feb, Chronic pain G89.29 [facility] [place] [address] [address] Feb, Diabetes E11.9 [facility] [place] [address] [address] January, Chronic pain G89.29 [facility] [place] [address] [address] January, [facility] [place] [address] [address] January, Bipolar I disorder, most recent episode (or current) mixed, moderate F31.62 [place] [address] [address] Dec, Bipolar I disorder, most recent episode (or current) mixed, moderate F31.62 [facility] [place] [address] [address] Dec, Chronic pain G89.29 [facility] [place] [address] [address] Dec, Bipolar I disorder, most recent episode (or current) mixed, moderate F31.62 [facility] [place] [address] [address] Dec, Diabetes E11.9 ; Essential hypertension I10 ; Chronic pain G89.29 and Morbid obesity E66.01 [facility] [place] [address] [address] Dec, [facility] [place] [address] [address] Dec, Bipolar I disorder, most recent episode (or current) mixed, moderate F31.62 [facility] [place] [address] [address] Dec, Bipolar I disorder, most recent episode (or current) mixed, moderate F31.62 [facility] [place] [address] [address] Nov, Chronic pain G89.29 [facility] [place] [address] [address] Nov, Bipolar I disorder, most recent episode (or current) mixed, moderate F31.62 [facility] [place] [address] [address] Nov, [facility] [place] [address] [address] Nov, Bipolar I disorder, most recent episode (or current) mixed, moderate F31.62 [facility] [place] [address] [address] Nov, Bipolar I disorder, most recent episode (or current) mixed, moderate F31.62 [facility] [place] [address] [address] Nov, [facility] [place] [address] [address] Nov, [facility] [place] [address] [address] Nov, [facility] [place] [address] [address] Oct, Chronic pain G89.29 [facility] [place] [address] [address] Oct, Bipolar I disorder, most recent episode (or current) mixed, moderate F31.62 [facility] [place] [address] [address] Oct, [facility] [place] [address] [place] [id number] Oct, Chronic pain G89.29 ; Diabetes E11.9 ; A nxiety F41.9 and 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 [facility] [place] [address] [place] [id number] [place] [address] Oct, [facility] [place] [address] [address] Oct, Diabetes E11.9 [facility] [place] [address] [address] Oct, Bipolar I disorder, most recent episode (or current) mixed, moderate F31.62 [facility] [place] [address] [address] Sep, Chronic pain G89.29 [facility] [place] [address] [address] Sep, Chronic pain G89.29 [facility] [place] [address] [address] Aug, Chronic pain G89.29 [facility] [place] [address] [address] Jul, [facility] [place] [address] [address] Jul, Diabetes E11.9 [facility] [place] [address] [address] Jul, Chronic pain G89.29 [facility] [place] [address] [address] Jul, Bipolar I disorder, most recent episode (or current) mixed, moderate F31.62 [facility] [place] [address] [place] [id number] [place] [address] Jun, Bipolar I disorder, most recent episode (or current) mixed, moderate F31.62 [facility] [place] [address] [address] Jun, [facility] [place] [address] [address] Jun, Bipolar I disorder, most recent episode (or current) mixed, moderate F31.62 [facility] [place] [address] [address] 30 May, 2016 Insomnia, unspecified type G47.00 [place] [address] [address] May, Bipolar I disorder, most recent episode (or current) mixed, moderate F31.62 [place] [address] [address] 14 May, 2016 [place] [address] [address] May, Bipolar I disorder, most recent episode (or current) mixed, moderate F31.62 [place] [address] [address] May, Diabetes E11.9 and Essential hypertensio n I10 [place] [address] [address] Apr, Chronic pain G89.29 [place] [address] [address] Apr, Bipolar I disorder, most recent episode (or current) mixed, moderate F31.62 [place] [address] [address] Apr, [place] [address] [address] Apr, [place] [address] [address] Mar, Chronic pain G89.29 ; Headache, unspecif ied headache type R51 ; Neuropathy G62.9 ; Pain of right hip joint M25.551 and Essential hypertension I10 [place] [address] [address] Mar, Chronic pain G89.29 [place] [address] [address] Mar, Bipolar I disorder, most recent episode (or current) mixed, moderate F31.62 [place] [address] [address] Feb, Bipolar I disorder, most recent episode (or current) mixed, moderate F31.62 and Insomnia, unspecified type G47.00 [place] [address] [address] Feb, Chronic pain G89.29 [place] [address] [address] Feb, Bipolar I disorder, most recent episode (or current) mixed, moderate F31.62 [place] [address] [address] January, Bipolar I disorder, most recent episode (or current) mixed, moderate F31.62 [place] [address] [address] January, Chronic pain G89.29 [place] [address] [address] January, Chronic pain G89.29 and Essential hypert ension I10 [place] [address] [address] January, Bipolar I disorder, most recent episode (or current) mixed, moderate F31.62 [place] [address] [address] Dec, [place] [address] [address] Dec, [place] [address] [address] Dec, [place] [address] [address] Dec, [place] [address] [address] Nov, Reactive airway disease J45.909 [place] [address] [address] Nov, [place] [address] [address] Nov, [place] [address] [address] Nov, [place] [address] [address] Nov, [place] [address] [address] Nov, Onychomycosis B35.1 ; Hammertoe M20.40 ; [place]burn or callus L84 and DM neuro manif type II E11.[address] [address] Nov, Chronic pain G89.29 ; Leukocytosis D72.8 29 and Diabetes E11.[address] [address] Nov, [place] [address] [address] Oct, Bronchitis J40 [place] [address] [address] Oct, [place] [address] [address] Oct, [place] [address] [address] Oct, Mastoiditis, unspecified laterality H70. 90 and Type 2 diabetes mellitus with complication E11.8 [place] [address] [address] Sep, [address] [address] Sep, Dysuria R30.0 ; Cough R05 ; Benign prost atic hyperplasia with lower urinary tract symptoms, unspecified morphology N40.1 ; Hypokalemia E87.6 and Eustachian tube dysfunction, unspecified laterality H69.[address] [place] [address] Sep, Moderate mixed bipolar I disorder F31.62 [facility] [place] [address] [address] Sep, Hypokalemia E87.6 [facility] [place] [address] [address] Sep, [facility] [place] [address] [address] Sep, Upper respiratory tract infection, unspe cified type J06.9 [facility] [place] [address] [address] Aug, [facility] [place] [address] [address] Aug, Dysuria R30.0 [facility] [place] [address] [address] Aug, [facility] [place] [address] [address] Jul, [facility] [place] [address] [address] Jul, [facility] [place] [address] [address] Jul, [facility] [place] [address] [address] Jul, [facility] [place] [address] [address] Jun, [facility] [place] [address] [address] Jun, [facility] [place] [address] [address] Jun, [facility] [place] [address] [address] May, [facility] [place] [address] [address] May, Bipolar I disorder, most recent episode (or current) mixed, moderate 296.62 [facility] [place] [address] [address] May, [facility] [place] [address] [address] May, Bipolar I disorder, most recent episode (or current) mixed, moderate 296.62 and Major depressive disorder, recurrent episode, severe, specified as with psychotic behavior 296.34 [facility] [place] [address] [address] May, Bipolar I disorder, most recent episode (or current) mixed, moderate 296.62 [facility] [place] [address] [address] May, [facility] [place] [address] [address] Apr, [facility] [place] [address] [address] Apr, [facility] [place] [address] [address] Apr, Unspecified disorder of kidney and urete r 593.9 and Diabetes mellitus type 2, uncontrolled 250.02 [facility] [place] [address] [address] Apr, [facility] [place] [address] [address] Apr, [facility] [place] [address] [address] Apr, [facility] [place] [address] [address] Apr, [facility] [place] [address] [address] Apr, Diabetes mellitus type II, uncontrolled 250.02 [facility] [place] [address] [address] Apr, [facility] [place] [address] [address] Mar, [facility] [place] [address] [address] Mar, [facility] [place] [address] [address] Mar, [facility] [place] [address] [address] Mar, Major depressive disorder, recurrent epi sode, severe, specified as with psychotic behavior 296.34 and Bipolar I disorder, most recent episode (or current) mixed, moderate 296.62 [place] [address] [address] Mar, Diabetes 250.00 ; Anuria 788.5 ; Nausea and vomiting 787.01 and Diarrhea 787.91 [place] [address] [address] Mar, Diabetes 250.00 [facility] [place] [address] [address] Mar, [facility] [place] [address] [address] Mar, Diabetes 250.00 [facility] [place] [address] [address] Mar, [facility] [place] [address] [address] Mar, [facility] [place] [address] [address] Mar, [facility] [place] [address] [address] Mar, [facility] [place] [address] [address] Mar, Bipolar I disorder, most recent episode (or current) mixed, moderate 296.62 and Major depressive disorder, recurrent episode, severe, specified as with psychotic behavior 296.34 [place] [address] [address] Mar, Magnesium deficiency 275.2 ; Hypokalemia 276.8 ; Nausea & vomiting 787.01 and Diabetes mellitus type 2, uncontrolled 250.02 [place] [address] [address] Feb, [place] [address] [address] Feb, Bipolar I disorder, most recent episode (or current) mixed, moderate 296.62 [place] [address] [address] Feb, Nausea and vomiting 787.01 ; Left elbow pain 719.42 ; Anuria 788.5 and Diabetes 250.00 [place] [address] [address] Feb, [place] [address] [address] Feb, Hypopotassemia 276.8 and Hypokalemia [address] [address] Feb, Hypopotassemia 276.8 and Hypokalemia 276 .8 [place] [address] [address] Feb, Seborrheic keratoses 702.19 [place] [address] [address] Feb, Hypopotassemia 276.8 and Low magnesium l evels 275.2 [place] [address] [address] January, [place] [address] [address] January, [place] [address] [address] January, [place] [address] [place] [address] January, Scalp lesion 709.9 [facility] [place] [address] [address] January, [facility] [address] [address] Dec, Tear of medial cartilage or meniscus of knee, current 836.0 and 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 [facility] [address] [address] Dec, [facility] [place] [address] [address] Dec, [facility] [place] [address] [address] Dec, Squamous cell carcinoma, 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 42 [facility] [place] [address] [address] 14 Dec, 2014 [facility] [place] [address] [address] Dec, [facility] [address] [address] Nov, [facility] [place] [address] [address] Nov, [facility] [id number] [place] [address] Nov, [facility] [address] [address] Nov, [facility] [id number] [place] [address] Nov, [facility] [address] [address] Nov, [facility] [id number] [place] [address] Nov, [facility] [address] [address] Nov, [facility] [place] [facility] [address] [id number] [place] [address] Nov, 2014 [facility] [place] [facility] [address] [id number] [place] [address] Nov, [facility] [place] [facility] [address] [id number] [place] [address] Nov, 2014 [facility] [place] [facility] [address] [id number] [place] [address] Nov, 2014 [facility] [place] [facility] [address] [facility] [id number] [place] [address] Oct, 2014 [facility] [place] [facility] [address] [id number] [place] [address] Oct, 2014 [facility] [place] [facility] [address] [id number] [place] [address] Oct, 2014 [facility] [place] [facility] [address] [id number] [place] [address] Oct, 2014 [facility] [place] [facility] [address] [id number] [place] [address] Oct, 2014 [facility] [place] [facility] [address] [id number] [place] [address] Oct, 2014 [facility] [place] [facility] [address] [id number] [place] [address] Oct, 2014 [facility] [place] [facility] [address] [id number] [place] [address] Oct, 2014 [facility] [place] [facility] [address] [id number] [place] [address] Oct, 2014 [facility] [place] [facility] [address] [id number] [place] [address] Sep, [facility] [place] [facility] [address] [id number] [place] [address] Sep, [facility] [place] [facility] [address] [id number] [place] [address] Sep, [facility] [place] [facility] [address] [id number] [place] [address] Sep, [facility] [place] [facility] [address] [id number] [place] [address] Sep, [facility] [place] [facility] [address] [id number] [place] [address] Sep, [facility] [place] [facility] [address] [id number] [place] [address] Sep, [facility] [address] [id number] [place] [address] Sep, [facility] [address] [id number] [place] [address] Sep, [facility] [address] [id number] [place] [address] Sep, [facility] [address] [id number] [place] [address] Sep, [facility] [address] [id number] [place] [address] Sep, [facility] [address] [id number] [place] [address] Sep, [facility] [address] [id number] [place] [address] Sep, [facility] [address] [id number] [place] [address] Sep, [facility] [address] [id number] [place] [address] Sep, [facility] [address] [id number] [place] [address] Aug, [facility] [address] [id number] [place] [address] Aug, [facility] [address] [id number] [place] [address] Aug, [facility] [address] [id number] [place] [address] Aug, [facility] [address] [facility] [id number] [place] [address] Aug, [facility] [address] [facility] [id number] [place] [address] Aug, [facility] [address] [facility] [id number] [place] [address] Aug, [facility] [address] [id number] [place] [address] Aug, [facility] [address] [facility] [id number] [place] [address] Aug, [facility] [address] [facility] [id number] [place] [address] Aug, [facility] [address] [id number] [place] [address] Aug, [facility] [address] [place] [id number] Aug[facility] [address] [id number] [place] [address] Aug, [facility] [address] [id number] [place] [address] Aug, [facility] [facility] [place] [facility] [address] [id number] [place] [address] Aug, [facility] [place] [facility] [address] [id number] [place] [address] Aug, [facility] [place] [facility] [address] [id number] [place] [address] Aug, [facility] [place] [facility] [address] [id number] [place] [address] Aug, [facility] [place] [facility] [address] [id number] [place] [address] Aug, [facility] [place] [facility] [address] [id number] [place] [address] Aug, [facility] [place] [facility] [address] [id number] [place] [address] 08 Aug, 2014 [facility] [place] [facility] [address] [id number] [place] [address] Aug, [facility] [place] [facility] [address] [id number] [place] [address] Aug, [facility] [place] [facility] [address] [id number] [place] [address] Aug, [facility] [place] [facility] [address] [id number] [place] [address] Aug, [facility] [place] [facility] [address] [id number] [place] [address] Aug, [facility] [place] [facility] [address] [id number] [place] [address] Aug, [facility] [place] [facility] [address] [id number] [place] [address] Aug, [facility] [place] [facility] [address] [id number] [place] [address] Aug, [facility] [place] [facility] [address] [id number] [place] [address] Aug, [facility] [place] [facility] [address] [id number] [place] [address] Jul, [facility] [place] [facility] [address] [id number] [place] [address] Jul, [facility] [place] [facility] [address] [id number] [place] [address] Jul, [facility] [place] [facility] [address] [id number] [place] [address] Jul, [facility] [place] [facility] [address] [id number] [place] [address] Jul, [facility] [place] [facility] [address] [id number] [place] [address] Jul, [facility] [place] [facility] [address] [id number] [place] [address] Jul, [facility] [place] [facility] [address] [id number] [place] [address] Jul, [facility] [place] [facility] [address] [id number] [place] [address] Jul, [facility] [place] [facility] [address] [id number] [place] [address] Jul, [facility] [place] [facility] [address] [id number] [place] [address] Jun, [facility] [place] [facility] [address] [id number] [place] [address] Jun, [facility] [place] [facility] [address] [id number] [place] [address] Jun, [facility] [place] [facility] [address] [id number] [place] [address] Jun, [facility] [place] [facility] [address] [id number] [place] [address] Jun, [facility] [place] [facility] [address] [id number] [place] [address] Jun, [facility] [place] [facility] [address] [id number] [place] [address] Jun, [facility] [place] [facility] [address] [id number] [place] [address] Jun, [facility] [place] [facility] [address] [id number] [place] [address] Jun, [facility] [place] [facility] [address] [id number] [place] [address] Jun, [facility] [place] [facility] [address] [id number] [place] [address] 29 May, 2014 [facility] [place] [facility] [address] [id number] [place] [address] 29 May, 2014 [facility] [place] [facility] [address] [id number] [place] [address] May, [facility] [place] [facility] [address] [id number] [place] [address] May, 2013 [facility] [place] [facility] [address] [id number] [place] [address] 17 May, 2013 [facility] [place] [facility] [address] [id number] [place] [address] 17 May, 2013 [facility] [place] [facility] [address] [id number] [place] [address] 15 May, 2013 [facility] [place] [facility] [address] [id number] [place] [address] 15 May, 2013 [facility] [place] [facility] [address] [id number] [place] [address] 15 May, 2013 [facility] [place] [facility] [address] [id number] [place] [address] 15 May, 2013 [facility] [place] [facility] [address] [id number] [place] [address] 10 May, 2013 [facility] [place] [facility] [address] [id number] [place] [address] 10 May, 2013 [facility] [place] [facility] [address] [id number] [place] [address] 09 May, 2013 [facility] [place] [facility] [address] [id number] [place] [address] 09 May, 2013 [facility] [place] [facility] [address] [id number] [place] [address] 04 May, 2013 [facility] [place] [facility] [address] [id number] [place] [address] May, 2013 [facility] [place] [facility] [address] [id number] [place] [address] Apr, [facility] [place] [facility] [address] [id number] [place] [address] Apr, [facility] [place] [facility] [address] [id number] [place] [address] Apr, [facility] [place] [facility] [address] [id number] [place] [address] Apr, [facility] [place] [facility] [address] [id number] [place] [address] Apr, [facility] [place] [facility] [address] [id number] [facility] [address] Apr, [facility] [place] [facility] [address] [id number] [place] [address] Apr, [facility] [place] [facility] [address] [id number] [facility] [address] Apr, [facility] [place] [facility] [address] [id number] [place] [address] Apr, [facility] [place] [facility] [address] [id number] [place] [address] Apr, [facility] [place] [facility] [address] [id number] [place] [address] Apr, [facility] [place] [facility] [address] [id number] [facility] [address] Apr, [facility] [place] [facility] [address] [id number] [facility] [address] Apr, [facility] [place] [facility] [address] [id number] [facility] [address] Apr, [facility] [place] [facility] [address] [id number] [facility] [address] Apr, [facility] [place] [facility] [address] [id number] [facility] [address] Mar, [facility] [place] [facility] [address] [id number] [place] [address] Mar, [facility] [place] [facility] [address] [id number] [facility] [address] Mar, [facility] [place] [facility] [address] [id number] [place] [address] Mar, [facility] [place] [facility] [address] [id number] [place] [address] Mar, [facility] [place] [facility] [address] [id number] [place] [address] Mar, [facility] [place] [facility] [address] [id number] [place] [address] Mar, 2013 [facility] [place] [facility] [address] [id number] [place] [address] Mar, 2013 [facility] [place] [facility] [address] [id number] [place] [address] Mar, 2013 [facility] [place] [facility] [address] [id number] [place] [address] Mar, 2013 [facility] [place] [facility] [address] [id number] [place] [address] Mar, 2013 [facility] [place] [facility] [address] [id number] [place] [address] Mar, 2013 [facility] [place] [facility] [address] [id number] [place] [address] Mar, 2013 [facility] [place] [facility] [address] [id number] [place] [address] Mar, 2013 [facility] [place] [facility] [address] [id number] [place] [address] Mar, 2013 [facility] [place] [facility] [address] [id number] [place] [address] Mar, 2013 [facility] [place] [facility] [address] [id number] [place] [address] Mar, 2013 [facility] [place] [facility] [address] [id number] [place] [address] Mar, 2013 [facility] [place] [facility] [address] [id number] [place] [address] Feb, [facility] [place] [facility] [address] [id number] [place] [address] Feb, [facility] [place] [facility] [address] [id number] [place] [address] Feb, [facility] [place] [facility] [address] [id number] [place] [address] Feb, 2013 [facility] [place] [facility] [address] [id number] [place] [address] Feb, [facility] [place] [facility] [address] [id number] [place] [address] Feb, [facility] [place] [facility] [address] [id number] [place] [address] Feb, [facility] [place] [facility] [address] [id number] [place] [address] Feb, [facility] [place] [facility] [address] [id number] [place] [address] Feb, [facility] [place] [facility] [address] [id number] [facility] [address] Feb, [facility] [place] [facility] [address] [id number] [place] [address] Feb, [facility] [place] [facility] [address] [id number] [place] [address] Feb, [facility] [place] [facility] [address] [id number] [place] [address] Feb, [facility] [place] [facility] [address] [id number] [place] [address] Feb, [facility] [place] [facility] [address] [id number] [place] [address] January, [facility] [place] [facility] [address] [id number] [place] [address] January, [facility] [place] [facility] [address] [id number] [place] [address] January, [facility] [place] [facility] [address] [id number] [place] [address] January, [facility] [place] [facility] [address] [id number] [place] [address] January, [facility] [place] [facility] [address] [id number] [place] [address] January, [facility] [place] [facility] [address] [id number] [place] [address] January, [facility] [place] [facility] [address] [id number] [place] [address] January, [facility] [place] [facility] [address] [id number] [place] [address] January, [facility] [place] [facility] [address] [id number] [place] [address] January, [facility] [place] [facility] [address] [id number] [place] [address] January, [facility] [place] [facility] [address] [id number] [place] [address] January, [facility] [place] [facility] [address] [id number] [facility] [address] January, [facility] [place] [facility] [address] [id number] [place] [address] January, [facility] [place] [facility] [address] [id number] [place] [address] Dec, [facility] [place] [facility] [address] [id number] [place] [address] Dec, [facility] [place] [facility] [address] [id number] [place] [address] Dec, [facility] [place] [facility] [address] [id number] [place] [address] Dec, [facility] [place] [facility] [address] [id number] [place] [address] Dec, [facility] [place] [facility] [address] [id number] [place] [address] Dec, [facility] [place] [facility] [address] [id number] [place] [address] Dec, [facility] [place] [facility] [address] [id number] [place] [address] Dec, [facility] [place] [facility] [address] [id number] [place] [address] Dec, [facility] [place] [facility] [address] [id number] [place] [address] Dec, [facility] [place] [facility] [address] [id number] [place] [address] Nov, [facility] [place] [facility] [address] [id number] [place] [address] Nov, [facility] [place] [facility] [address] [id number] [place] [address] Nov, [facility] [place] [facility] [address] [id number] [place] [address] Nov, [facility] [place] [facility] [address] [id number] [place] [address] Nov, [facility] [place] [facility] [address] [id number] [place] [address] Nov, [facility] [place] [facility] [address] [id number] [place] [address] Nov, [facility] [place] [facility] [address] [id number] [place] [address] Nov, [facility] [place] [facility] [address] [id number] [place] [address] Nov, [facility] [place] [facility] [address] [id number] [place] [address] Nov, [facility] [place] [facility] [address] [id number] [place] [address] Oct, [facility] [place] [facility] [address] [id number] [place] [address] Oct, [facility] [place] [facility] [address] [id number] [place] [address] Oct, [facility] [place] [facility] [address] [id number] [place] [address] Oct, [facility] [place] [facility] [address] [id number] [place] [address] Oct, [facility] [place] [facility] [address] [id number] [place] [address] Oct, [facility] [place] [facility] [address] [id number] [place] [address] 14 Oct, 2013 [facility] [place] [facility] [address] [id number] [facility] [address] 14 Oct, 2013 [facility] [place] [facility] [address] [id number] [place] [address] Oct, [facility] [place] [facility] [address] [id number] [facility] [address] Oct, [facility] [place] [facility] [address] [id number] [place] [address] Oct, [facility] [place] [facility] [address] [id number] [facility] [address] Oct, [facility] [place] [facility] [address] [id number] [place] [address] Oct, [facility] [place] [facility] [address] [id number] [facility] [address] Oct, [facility] [place] [facility] [address] [id number] [place] [address] Sep, [facility] [place] [facility] [address] [id number] [facility] [address] Sep, [facility] [place] [facility] [address] [id number] [place] [address] Sep, [facility] [place] [facility] [address] [id number] [place] [address] 15 Sep, 2013 [facility] [place] [facility] [address] [id number] [place] [address] Sep, [facility] [place] [facility] [address] [id number] [facility] [address] Sep, [facility] [place] [facility] [address] [id number] [place] [address] Sep, [facility] [place] [facility] [address] [id number] [place] [address] Sep, [facility] [place] [facility] [address] [id number] [place] [address] Sep, [facility] [place] [facility] [address] [id number] [place] [address] 08 Sep, 2013 [facility] [place] [facility] [address] [id number] [place] [address] 10 Aug, 2013 [facility] [place] [facility] [address] [id number] [place] [address] Aug, [facility] [place] [facility] [address] [id number] [place] [address] Jul, [facility] [place] [facility] [address] [id number] [place] [address] Jul, [facility] [place] [facility] [address] [id number] [place] [address] Jul, [facility] [place] [facility] [address] [id number] [place] [address] Jul, [facility] [place] [facility] [address] [id number] [place] [address] Jul, [facility] [place] [facility] [address] [id number] [place] [address] Jul, [facility] [place] [facility] [address] [id number] [place] [address] Jul, [facility] [place] [facility] [address] [id number] [place] [address] Jul, [facility] [place] [facility] [address] [id number] [place] [address] Jul, [facility] [place] [facility] [address] [id number] [place] [address] 08 Jul, 2013 [facility] [place] [facility] [address] [id number] [place] [address] Jul, [facility] [place] [facility] [address] [id number] [place] [address] Jul, [facility] [place] [facility] [address] [id number] [place] [address] Jul, [facility] [place] [facility] [address] [id number] [place] [address] 05 Jul, 2013 [facility] [place] [facility] [address] [id number] [place] [address] Jul, 2012 [facility] [place] [facility] [address] [id number] [place] [address] Jul, 2012 [facility] [place] [facility] [address] [id number] [place] [address] Jul, 2012 [facility] [place] [facility] [address] [id number] [place] [address] Jul, 2012 [facility] [place] [facility] [address] [id number] [place] [address] Jul, 2012 [facility] [place] [facility] [address] [id number] [place] [address] Jun, 2012 [facility] [place] [facility] [address] [id number] [place] [address] Jun, 2012 [facility] [place] [facility] [address] [id number] [place] [address] Jun, 2012 [facility] [place] [facility] [address] [id number] [place] [address] Jun, 2012 [facility] [place] [facility] [address] [id number] [place] [address] Jun, 2012 [facility] [place] [facility] [address] [id number] [place] [address] Jun, 2012 [facility] [place] [facility] [address] [id number] [place] [address] Jun, 2012 [facility] [place] [facility] [address] [id number] [place] [address] Jun, 2012 [facility] [place] [facility] [address] [id number] [place] [address] Jun, 2012 [facility] [place] [facility] [address] [id number] [place] [address] Jun, 2012 [facility] [place] [facility] [address] [facility] [id number] [place] [address] Jun, 2012 [facility] [place] [facility] [address] [id number] [place] [address] 26 May, 2012 [facility] [place] [facility] [address] [id number] [facility] [address] 25 May, 2012 [facility] [place] [facility] [address] [facility] [id number] [facility] [address] 19 May, 2012 [facility] [place] [facility] [address] [id number] [facility] [address] 17 May, 2012 [facility] [place] [facility] [address] [facility] [id number] [facility] [address] 11 May, 2012 [facility] [place] [facility] [address] [facility] [id number] [place] [address] 10 May, 2012 [facility] [place] [facility] [address] [id number] [facility] [address] May, [facility] [place] [facility] [address] [id number] [facility] [address] 05 May, 2013 [facility] [place] [facility] [address] [id number] [facility] [address] Apr, [facility] [place] [facility] [address] [facility] [id number] [facility] [address] Apr, [facility] [place] [facility] [address] [id number] [facility] [address] Apr, [facility] [place] [facility] [address] [id number] [place] [address] Apr, [facility] [place] [facility] [address] [id number] [facility] [address] Apr, [facility] [place] [facility] [address] [facility] [id number] [facility] [address] Mar, [facility] [place] [facility] [address] [id number] [facility] [address] Mar, [facility] [place] [facility] [address] [id number] [facility] [address] Mar, [facility] [place] [facility] [address] [id number] [facility] [address] Mar, [facility] [place] [facility] [address] [id number] [place] [address] Mar, [facility] [place] [facility] [address] [id number] [place] [address] Mar, [facility] [place] [facility] [address] [id number] [place] [address] Mar, [facility] [place] [facility] [address] [id number] [place] [address] Mar, [facility] [place] [facility] [address] [id number] [place] [address] Feb, [facility] [place] [facility] [address] [id number] [place] [address] Feb, [facility] [place] [facility] [address] [id number] [place] [address] January, [facility] [place] [facility] [address] [id number] [place] [address] January, [facility] [place] [facility] [address] [id number] [place] [address] Dec, [facility] [place] [facility] [address] [id number] [place] [address] Dec, [facility] [place] [facility] [address] [id number] [place] [address] Nov, [facility] [place] [facility] [address] [id number] [place] [address] Nov, [facility] [place] [facility] [address] [id number] [place] [address] Nov, [facility] [place] [facility] [address] [id number] [place] [address] Nov, [facility] [place] [facility] [address] [id number] [place] [address] Oct, [facility] [place] [facility] [address] [id number] [place] [address] Oct, [facility] [place] [facility] [address] [id number] [place] [address] Oct, [facility] [place] [facility] [address] [facility] [id number] [facility] [address] Oct, [facility] [place] [facility] [address] [id number] [facility] [address] 16 Oct, 2012 [facility] [place] [facility] [address] [id number] [facility] [address] 14 Oct, 2012 [facility] [place] [facility] [address] [id number] [facility] [address] 08 Oct, 2012 [facility] [place] [facility] [address] [id number] [facility] [address] 07 Oct, 2012 [facility] [place] [facility] [address] [id number] [facility] [address] 03 Oct, 2012 [facility] [place] [facility] [address] [id number] [place] [address] Sep, [facility] [place] [facility] [address] [id number] [place] [address] Sep, [facility] [place] [facility] [address] [id number] [place] [address] Sep, [facility] [place] [facility] [address] [id number] [place] [address] Sep, [facility] [place] [facility] [address] [id number] [place] [address] Sep, [facility] [place] [facility] [address] [id number] [place] [address] Sep, [facility] [place] [facility] [address] [id number] [place] [address] Sep, [facility] [place] [facility] [address] [id number] [place] [address] Sep, [facility] [place] [facility] [address] [id number] [place] [address] Aug, [facility] [place] [facility] [address] [id number] [place] [address] Aug, [facility] [place] [facility] [address] [id number] [place] [address] Aug, [facility] [place] [facility] [address] [id number] [place] [address] Aug, [facility] [place] [facility] [address] [id number] [place] [address] Aug, [facility] [place] [facility] [address] [id number] [place] [address] Aug, [facility] [place] [facility] [address] [id number] [place] [address] Aug, [facility] [place] [facility] [address] [id number] [place] [address] Aug, [facility] [place] [facility] [address] [id number] [place] [address] Jul, [facility] [place] [facility] [address] [id number] [place] [address] Jul, [facility] [place] [facility] [address] [id number] [place] [address] Jul, [facility] [place] [facility] [address] [id number] [place] [address] Jul, [facility] [place] [facility] [address] [id number] [place] [address] Jul, [facility] [place] [facility] [address] [id number] [place] [address] Jul, [facility] [place] [facility] [address] [id number] [place] [address] Jun, [facility] [place] [facility] [address] [id number] [place] [address] Jun, [facility] [place] [facility] [id number] [place] [address] Jun, [facility] [place] [facility] [address] [id number] [place] [address] Jun, [facility] [place] [facility] [address] [id number] [place] [address] Jun, [facility] [place] [facility] [address] [id number] [place] [address] Jun, [facility] [place] [facility] [address] [id number] [place] [address] Jun, [facility] [place] [facility] [address] [id number] [place] [address] Jun, [facility] [place] [facility] [address] [id number] [place] [address] Jun, [facility] [address] [id number] [place] [address] May, [facility] [address] [id number] [place] [address] 24 May, 2012 [facility] [address] [id number] [place] [address] May, [facility] [address] [id number] [place] [address] 30 Apr, 2012 [facility] [address] [id number] [place] [address] Apr, [facility] [address] [id number] [place] [address] Apr, [facility] [address] [id number] [place] [address] Apr, [facility] [address] [id number] [place] [address] Apr, [facility] [address] [id number] [place] [address] Apr, [facility] [address] [id number] [place] [address] Mar, [facility] [address] [id number] [place] [address] Mar, [facility] [address] [id number] [place] [address] Mar, [facility] [address] [id number] [place] [address] Mar, [facility] [address] [facility] [id number] [facility] [address] Feb, [facility] [address] [id number] [facility] [address] Feb, [facility] [address] [id number] [facility] [address] Feb, [facility] [address] [id number] [facility] [address] Feb, [facility] [address] [facility] [id number] [facility] [address] Feb, [facility] [address] [id number] [place] [address] January, [facility] [address] [id number] [place] [address] January, [facility] [address] [id number] [place] [address] January, [facility] [address] [id number] [place] [address] January, [facility] [address] [id number] [place] [address] January, [facility] [address] [id number] [place] [address] January, [facility] [address] [id number] [place] [address] Dec, [facility] [address] [id number] [facility] [address] Dec, [facility] [address] [id number] [place] [address] Dec, [facility] [address] [id number] [place] [address] Dec, [facility] [address] [id number] [place] [address] Dec, [facility] [address] [id number] [place] [address] 27 Nov, 2011 [facility] [address] [id number] [place] [address] 14 Nov, 2011 [facility] [address] [id number] [place] [address] 12 Nov, 2011 [facility] [address] [id number] [place] [address] 07 Nov, 2011 [facility] [address] [id number] [place] [address] 29 Oct, 2011 [facility] [address] [id number] [place] [address] 28 Oct, 2011 [facility] [address] [id number] [place] [address] 24 Oct, 2011 [facility] [address] [id number] [place] [address] Oct, [facility] [address] [id number] [place] [address] Oct, [facility] [address] [id number] [place] [address] Sep, [facility] [address] [id number] [place] [address] Sep, [facility] [address] [id number] [place] [address] Sep, [facility] [address] [id number] [place] [address] Sep, [facility] [address] [id number] [place] [address] Sep, [facility] [address] [id number] [place] [address] Sep, [facility] [address] [id number] [place] [address] Aug, [facility] [address] [id number] [place] [address] Aug, [facility] [address] [id number] [place] [address] Aug, [facility] [address] [id number] [place] [address] Jul, [facility] [address] [id number] [place] [address] Jul, [facility] [address] [id number] [place] [address] Jul, [facility] [address] [facility] [id number] [place] [address] Jul, [facility] [address] [id number] [place] [address] Jun, [facility] [address] [id number] [place] [address] Jun, [facility] [address] [id number] [place] [address] Jun, [facility] [address] [id number] [place] [address] Jun, [facility] [address] [id number] [place] [address] Jun, [facility] [address] [id number] [place] [address] Jun, [facility] [address] [id number] [place] [address] Mar, [facility] [address] [id number] [place] [address] Dec, [facility] [address] [id number] [place] [address] Dec, [facility] [address] [id number] [place] [address] Nov, [facility] [address] [id number] [place] [address] 16 Nov, 2010 [facility] [address] [id number] [place] [address] 10 Sep, 2010 [facility] [address] [id number] [place] [address] 31 Aug, 2010 [facility] [address] [id number] [place] [address] Aug, [facility] [address] [id number] [place] [address] 29 Aug, 2010 [facility] [address] [id number] [place] [address] 29 Aug, 2010 [facility] [address] [id number] [place] [address] Aug, [facility] [address] [id number] [place] [address] 14 Aug, 2010 [facility] [address] [id number] [place] [address] 08 Aug, 2010 [facility] [address] [id number] [place] [address] 08 Aug, 2010 [facility] [address] [id number] [place] [address] Aug, [facility] [address] [id number] [place] [address] 06 Aug, 2010 [facility] [address] [id number] [place] [address] Aug, [facility] [address] [id number] [place] [address] Aug, [facility] [address] [id number] [place] [address] 30 Jul, 2010 [facility] [id number] [place] [address] 30 Jul, 2010 [facility] [address] [id number] [place] [address] 30 Jul, 2010 [facility] [address] [id number] [place] [address] 17 Jul, 2010 [facility] [address] [id number] [place] [address] 08 Jul, 2010 [facility] [address] [id number] [place] [address] Jul, [facility] [address] [id number] [place] [address] Jun, [facility] [address] [id number] [place] [address] Jun, [facility] [address] [id number] [place] [address] Jun, [facility] [address] [id number] [place] [address] Jun, [facility] [address] [id number] [place] [address] Apr, [facility] [address] [id number] [place] [address] Mar, [facility] [address] [id number] [place] [address] Feb, [facility] [address] [id number] [place] [address] January, [facility] [address] [id number] [place] [address] 15 Dec, 2009 [facility] [address] [id number] [place] [address] Nov, [facility] [address] [id number] [place] [address] Aug, [facility] [address] [id number] [place] [address] Aug, [facility] [address] [id number] [place] [address] 07 Aug, 2009 [facility] [address] [id number] [place] [address] Jul, [facility] [address] [id number] [place] [address] Jul, [facility] [place] [address] [id number] [place] [address] Jul, [facility] [place] [address] [id number] [place] [address] Jun, [facility] [place] [address] [id number] [place] [address] Jun, [facility] [place] [id number] [place] [address] Jun, [facility] [place] [id number] [place] [address] Jun, [facility] [place] [address] [address] Jun, [facility] [place] [id number] [place] [address] Jun, [facility] [place] [id number] [place] [address] Apr, [facility] [place] [id number] [place] [address] Apr, [facility] [place] [id number] [place] [address] Feb, [facility] [place] [address] [id number] [place] [address] January, [facility] [place] [id number] [place] [address] Dec, IMMUNIZATIONS No Known Immunizations SOCIAL HISTORY [...] tunnel release (Left) 2000 Surgical History EGD ([facility]) 2009 Surgical History colonoscopy 2009 ([facility]), 2013 ([place] ) Surgical History heart cath: CAD w/ [...] History inability to urinate 09/16/15 Hospitalization History [facility] mental health ea rly 1999' Hospitalization History hyperkalemia 10/2017 Hospitalization History fluid in lung
--- OUTSIDE RECORDS SUMMARY | 2020-03-01 17:01 | XMS REPORT ---
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 Name Role Phone NOEMI WASHBURN Unavailable PROBLEMS Type Condition ICD9-CM Code SDE17-ZA Code Onset Dates Condition S tatus SNOMED Code Problem DM neuro manif type II E11.49 Active 28626685 Problem Chronic pain G89.29 Active 7204126 1 Problem Diabetes E11.9 Active 30899381 Problem Reactive airway disease J45.909 Active 977574998139 Problem Leukocytosis D72.829 Active 5273856 06 Problem Insomnia, unspecified type G47.00 Act sharon 095239145 Problem Bipolar I disorder, most recent episode (or curr ent) mixed, moderate F31.62 Active 02077462 Problem Primary osteoarthritis of right knee M17.11 Active 178880769789466 Problem Cough R05 Active 86526074 Problem Pure hypercholesterolemia E78.00 Acti ve 021190093 Problem Dysuria R30.0 Active 53082875 Problem Benign prostatic hyperplasia with lower urinary tract symptoms, unspecified morphology N40.1 Active 77696 6007 Problem Eustachian tube dysfunction, unspecified laterality H69.80 Active 50459328 Problem Polyneuropathy associated with underlying disease G63 Active 451713301 Problem Diabetic polyneuropathy associated with type 2 d iabetes mellitus E11.42 Active 15978257 Problem Anemia of chronic illness D63.8 Acti ve 371631127 Problem Chronic lymphocytic leukemia C91.10 A ctive 22171959 Problem Bilateral primary osteoarthritis of knee M17.0 Active 006734309 Problem 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 Active 687620914 Problem Eye exam abnormal R93.8 Active 16 1030194 Problem Retinal edema H35.81 Active 040261 6 Problem Lymphocytosis D72.820 Active 596619 09 Problem Bipolar disorder, in partial remission, most rec ent episode depressed F31.75 Active 14312882 Problem Hypokalemia E87.6 Active 64777293 Problem Falling R29.6 Active 963165286 Problem Pressure ulcer of other site, stage 3 L89.893 Active 675702678 Problem Other iron deficiency anemia D50.8 A ctive 82473544 Problem Mild cognitive impairment G31.84 Acti ve 545296504 Problem Skin cancer C44.90 Active 66564805 7 Problem half-way (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 Z79.4 Active 151782580 Problem Morbid obesity E66.01 Active 41056 6002 Problem Mood disorder F39 Active 298441 05 Problem Anxiety F41.9 Active 79710733 Problem Essential hypertension I10 Active 92350356 Problem Bipolar disorder F31.9 Active 137 35795 Problem Chronic diastolic (congestive) heart failure I50.3 2 Active 908354166 Problem Psychophysiological insomnia F51.04 A ctive 815624830 Problem Type 2 diabetes mellitus with diabetic neuropathy, uns pecified E11.40 Active 50642084 ALLERGIES No Information ENCOUNTERS Encounter Location Date Diagnosis [place] [address] [address] Oct, [facility] [address] [address] Sep, [place] [address] [address] Sep, [facility] [address] [address] Sep, [place] [address] [address] Sep, Mood disorder F39 [facility] [address] [address] Sep, [facility] [address] [address] Sep, Mood disorder F39 [facility] [address] [address] Sep, [facility] [address] [address] Aug, Mood disorder [address] [place] [address] [address] [place] [id number] [place] [address] Aug, [facility] [address] [address] Aug, [facility] [address] [address] Aug, [facility] [address] [address] Aug, [facility] [address] [address] Aug, [facility] [address] [address] Aug, [facility] [address] [address] Aug, [facility] [address] [address] Aug, Essential hypertension I10 [facility] [address] [address] Aug, Bipolar disorder, in partial remission, most recent episode depressed F31.75 and Mild cognitive impairment G31.84 [facility] [address] [address] Aug, Mood disorder F39 [facility] [address] [address] Aug, [facility] [address] [address] Aug, Bipolar disorder, in partial remission, most recent episode depressed F31.75 and Mild cognitive impairment G31.84 [facility] [address] [address] Jul, Bipolar disorder, in partial remission, most recent episode depressed F31.75 and Mild cognitive impairment G31.84 [facility] [address] [address] Jul, Psychophysiological insomnia F51.04 [facility] [address] [address] Jul, [facility] [address] [address] Jul, [facility] [address] [address] Jul, [facility] [address] [address] Jul, [facility] [address] [address] Jul, [facility] [address] [address] Jul, [facility] [address] [address] Jul, Bipolar disorder, in partial remission, most recent episode depressed F31.75 and Mild cognitive impairment G31.84 [place] [address] [address] Jul, Chronic pain G89.29 ; Diabetes E11.9 ; E ssential hypertension I10 ; Ill feeling R68.89 ; Local infection of the skin and subcutaneous tissue, unspecified L08.9 and Other injury of unspecified body region, initial encounter T14.8XXA [place] [address] [address] Jun, Bipolar disorder, in partial remission, most recent episode depressed F31.75 and Mild cognitive impairment G31.84 [facility] [address] [address] Jun, [facility] [address] [address] Jun, Bipolar disorder, in partial remission, most recent episode depressed F31.75 and Mild cognitive impairment G31.84 [facility] [address] [address] Jun, Psychophysiological insomnia F51.04 [place] [address] [address] Jun, Psychophysiological insomnia F51.04 ; Ch ronic pain G89.29 ; Bipolar I disorder, most recent episode (or current) mixed, moderate F31.62 ; 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 ; Polyneuropathy associated with underlying disease G63 ; Type 2 diabetes mellitus with diabetic neuropathy, unspecified E11.40 ; half-way (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 Z79.4 and Hyperglycemia R73.9 [place] [address] [address] Jun, Bipolar disorder, in partial remission, most recent episode depressed F31.75 and Mild cognitive impairment G31.84 [place] [address] [address] Jun, [address] [address] Jun, Bipolar disorder F31.9 [place] [address] [address] May, Bipolar disorder, in partial remission, most recent episode depressed F31.75 and Mild cognitive impairment G31.84 [place] [address] [address] May, [address] [address] Apr, Chronic pain G89.29 and Bipolar disorder F31.9 [place] [address] [address] Mar, Bipolar disorder F31.9 and Chronic pain G89.[address] [address] Feb, Bipolar disorder F31.9 [place] [address] [address] Feb, Cellulitis of right upper extremity L03. 113 and Skin abrasion T14.8XXA [place] [address] [address] Feb, Bipolar disorder, in partial remission, most recent episode depressed F31.75 and Mild cognitive impairment G31.84 [facility] [address] [address] Feb, Chronic pain G89.29 [facility] [address] [address] Feb, Bipolar disorder, in partial remission, most recent episode depressed F31.75 and Mild cognitive impairment G31.84 [facility] [address] [address] January, Bipolar disorder, in partial remission, most recent episode depressed F31.75 and Mild cognitive impairment G31.84 [facility] [address] [address] January, Chronic pain G89.29 and Bipolar disorder F31.9 [facility] [address] [address] January, Bipolar disorder, in partial remission, most recent episode depressed F31.75 and Mild cognitive impairment G31.84 [facility] [address] [address] Dec, [facility] [address] [address] Dec, Chronic pain G89.29 and Bipolar disorder F31.9 [facility] [address] [address] Dec, Edema of both lower extremities R60.0 [facility] [address] [address] Dec, Bipolar disorder F31.9 [facility] [address] [address] Dec, Bipolar disorder, in partial remission, most recent episode depressed F31.75 and Mild cognitive impairment G31.84 [facility] [address] [address] Nov, [place] [address] [address] Nov, Chronic pain G89.[address] [address] Nov, Bipolar disorder, in partial remission, most recent episode depressed F31.75 and Mild cognitive impairment G31.[address] [address] Nov, Bipolar disorder F31.[address] [address] Nov, Encounter for Medicare annual wellness e [...] unspecified morphology N40.1 and Essential hypertension I10 [address] [address] Oct, Chronic pain G89.[address] [address] Oct, Diabetes E11.[address] [address] Oct, Bipolar I disorder, most recent episode (or current) mixed, moderate F31.62 and Mild cognitive impairment G31.[address] [address] Oct, Bipolar I disorder, most recent episode (or current) mixed, moderate F31.62 and Mild cognitive impairment G31.[address] [address] Sep, Bipolar I disorder, most recent episode (or current) mixed, moderate F31.62 and Mild cognitive impairment G31.84 [place] [address] [address] Sep, [place] [address] [address] Sep, Diabetes E11.9 ; Hypoxia R09.02 ; Hyperg lycemia R73.9 ; Therapeutic drug monitoring Z51.81 ; BMI 50.0-59.9, adult Z68.43 and Skin cancer C44.90 [place] [address] [address] Sep, Chronic pain G89.29 [place] [address] [address] Sep, Bipolar I disorder, most recent episode (or current) mixed, moderate F31.62 [place] [address] [address] Sep, [place] [address] [address] Sep, [place] [address] [address] Aug, Chronic pain G89.29 [place] [address] [address] Aug, Bipolar I disorder, most recent episode (or current) mixed, moderate F31.62 [place] [address] [address] Aug, Bipolar I disorder, most recent episode (or current) mixed, moderate F31.62 and Mild cognitive impairment G31.84 [place] [address] [address] Jul, [place] [address] [address] Jul, Chronic pain G89.29 [facility] [address] [place] [id number] [place] [address] Jul, Bipolar I disorder, most recent episode (or current) mixed, moderate F31.62 and Mild cognitive impairment G31.84 [facility] [address] [address] Jul, Bipolar I disorder, most recent episode (or current) mixed, moderate F31.62 and MCI (mild cognitive impairment) G31.84 [place] [address] [address] Jul, [place] [address] [address] Jul, [place] [address] [address] Jul, Bipolar I disorder, most recent episode (or current) mixed, moderate F31.62 [place] [address] [place] [address] [place] [address] Jul, Chronic pain G89.29 [place] [address] [address] Jun, Bipolar I disorder, most recent episode (or current) mixed, moderate F31.62 [place] [address] [place] [id number] [place] [address] Jun, Pre-procedure lab exam Z01.812 [place] [id number] [place] [address] Jun, [place] [address] [address] [facility] [place] [id number] Jun, [address] [address] Jun, [place] [address] [place] [address] [place] [address] Jun, Forgetfulness R68.89 ; Pre-syncope R55 ; Localized edema R60.0 ; Other iron deficiency anemia D50.8 and BMI 50.0-59.9, adult Z68.43 [place] [address] [address] Jun, Chronic pain G89.29 [place] [address] [address] Jun, Chronic pain G89.29 [place] [address] [address] Jun, Bipolar I disorder, most recent episode (or current) mixed, moderate F31.62 [place] [address] [address] May, Chronic pain G89.29 [place] [address] [address] Apr, [place] [address] [address] Apr, Chronic pain G89.29 [place] [address] [address] Apr, Primary osteoarthritis of right knee M17 .11 [place] [address] [address] Mar, [place] [address] [address] Mar, BMI 50.0-59.9, adult Z68.43 and Bipolar disorder, in partial remission, most recent episode depressed F31.75 [place] [address] [address] Mar, Diabetes E11.9 ; Pure hypercholesterolem ia E78.00 ; Essential hypertension I10 ; Nausea with vomiting, unspecified R11.2 and Headache, unspecified headache type R51 [place] [address] [address] Mar, Bipolar I disorder, most recent episode (or current) mixed, moderate F31.62 [place] [address] [address] Mar, Bipolar I disorder, most recent episode (or current) mixed, moderate F31.62 [place] [address] [address] Mar, Chronic pain G89.29 [place] [address] [address] Mar, Bipolar I disorder, most recent episode (or current) mixed, moderate F31.62 [place] [address] [address] Feb, Bipolar I disorder, most recent episode (or current) mixed, moderate F31.62 [place] [address] [address] Feb, Chronic pain G89.29 [place] [address] [address] Feb, Decubitus ulcer of right foot, stage 3 L 89.893 and BMI 50.0-59.9, adult Z68.43 [place] [address] [address] Feb, Bipolar I disorder, most recent episode (or current) mixed, moderate F31.62 [place] [address] [address] Feb, [place] [address] [address] January, [place] [address] [address] January, Chronic pain G89.29 [place] [address] [address] January, Bipolar I disorder, most recent episode (or current) mixed, moderate F31.62 [place] [address] [address] January, Bipolar I disorder, most recent episode (or current) mixed, moderate F31.62 [place] [address] [address] Dec, Bipolar I disorder, most recent episode (or current) mixed, moderate F31.62 and BMI 50.0-59.9, adult Z68.43 [place] [address] [address] Dec, Bipolar I disorder, most recent episode (or current) mixed, moderate F31.62 [place] [address] [address] Dec, Chronic pain G89.[address] [address] Dec, DM neuro manif type II E11.49 ; Right fl ank pain R10.9 ; 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 ; Encounter for medication monitoring Z51.81 and BMI 50.0-59.9, adult Z68.43 [place] [address] [address] Dec, Bipolar I disorder, most recent episode (or current) mixed, moderate F31.62 [place] [address] [address] Nov, Bipolar I disorder, most recent episode (or current) mixed, moderate F31.62 [place] [address] [address] Nov, Chronic pain G89.29 [place] [address] [address] Nov, Bipolar I disorder, most recent episode (or current) mixed, moderate F31.[address] [address] Nov, Hypokalemia E87.6 [place] [address] [address] Nov, Bipolar I disorder, most recent episode (or current) mixed, moderate F31.62 [place] [address] [address] Oct, Chronic pain G89.29 [facility] [address] [address] Oct, BMI 50.0-59.9, adult Z68.43 and Bipolar I disorder, most recent episode (or current) mixed, moderate F31.62 [place] [address] [address] Oct, Bipolar I disorder, most recent episode (or current) mixed, moderate F31.62 [place] [address] [address] Oct, [place] [address] [address] Oct, Hypokalemia E87.6 [place] [address] [address] Oct, DM neuro manif type II E11.49 [place] [address] [address] Oct, Bipolar I disorder, most recent episode (or current) mixed, moderate F31.62 [place] [address] [address] Oct, Bipolar I disorder, most recent episode (or current) mixed, moderate F31.62 [place] [address] [address] Oct, Hyperkalemia E87.5 ; Falling R29.6 ; BMI 50.0-59.9, adult Z68.43 and Acute left ankle pain M25.572 [place] [address] [address] Oct, DM neuro manif type II E11.49 [place] [address] [address] Oct, [address] [place] [address] Sep, Chronic pain G89.29 [place] [address] [address] Sep, [facility] [address] [address] Sep, Bilateral primary osteoarthritis of knee M17.0 [place] [address] [address] Sep, Generalized edema R60.1 [place] [address] [address] Sep, Bipolar I disorder, most recent episode (or current) mixed, moderate F31.62 [place] [address] [address] Sep, Hypoxia R09.02 ; Other hypervolemia E87. 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 ; Anemia of chronic illness D63.8 and BMI 50.0-59.9, adult Z68.43 [place] [address] [address] Sep, [place] [address] [address] Sep, Bipolar I disorder, most recent episode (or current) mixed, moderate F31.62 [place] [address] [address] Aug, Chronic pain G89.29 [place] [address] [address] Aug, Generalized edema R60.1 [place] [address] [address] Aug, [place] [address] [address] Aug, [place] [address] [address] 14 Aug, 2017 Bipolar I disorder, most recent episode (or current) mixed, moderate F31.62 [place] [address] [place] [address] Aug, Bipolar I disorder, most recent episode (or current) mixed, moderate F31.62 [place] [address] [address] Aug, Chronic pain G89.[address] [address] Jul, Bipolar I disorder, most recent episode (or current) mixed, moderate F31.[address] [address] Jul, Bipolar I disorder, most recent episode (or current) mixed, moderate F31.62 and BMI 60.0-69.9, adult Z68.[address] [address] Jul, Bipolar I disorder, most recent episode (or current) mixed, moderate F31.[address] [address] Jul, Chronic pain G89.[address] [address] Jul, Bipolar I disorder, most recent episode (or current) mixed, moderate F31.62 [place] [address] [address] Jun, Polyneuropathy associated with underlyin g disease G63 and Diabetes E11.[address] [address] Jun, Bipolar I disorder, most recent episode (or current) mixed, moderate F31.[address] [address] Jun, Chronic pain G89.29 [place] [address] [address] 27 May, 2017 Bipolar I disorder, most recent episode (or current) mixed, moderate F31.62 [place] [address] [address] 21 May, 2017 Bipolar I disorder, most recent episode (or current) mixed, moderate F31.62 [place] [address] [address] 20 May, 2017 Diabetic polyneuropathy associated with type 2 diabetes mellitus E11.42 [place] [address] [address] 18 May, 2017 Bipolar I disorder, most recent episode (or current) mixed, moderate F31.62 [place] [address] [address] 13 May, 2017 Bipolar I disorder, most recent episode (or current) mixed, moderate F31.62 [place] [address] [address] 12 May, 2017 Chronic pain G89.29 [place] [address] [address] 30 Apr, 2017 Bipolar I disorder, most recent episode (or current) mixed, moderate F31.62 [place] [address] [address] Apr, [place] [address] [address] Apr, Chronic pain G89.29 and DM neuro manif t ype II E11.49 [place] [address] [address] Apr, [place] [address] [address] 16 Apr, 2017 Bipolar I disorder, most recent episode (or current) mixed, moderate F31.62 [place] [address] [address] Apr, Chronic pain G89.29 [facility] [address] [address] Apr, Iliotibial band syndrome, left M76.32 [facility] [address] [address] Apr, Bipolar I disorder, most recent episode (or current) mixed, moderate F31.62 [facility] [address] [address] Mar, Bipolar I disorder, most recent episode (or current) mixed, moderate F31.62 [facility] [address] [address] Mar, Bipolar I disorder, most recent episode (or current) mixed, moderate F31.62 [place] [address] [address] Mar, [facility] [address] [address] Mar, Bipolar I disorder, most recent episode (or current) mixed, moderate F31.62 [facility] [address] [address] Mar, Chronic pain G89.29 [facility] [address] [address] Mar, Bipolar I disorder, most recent episode (or current) mixed, moderate F31.62 [facility] [address] [address] Mar, Bipolar I disorder, most recent episode (or current) mixed, moderate F31.62 [facility] [address] [address] Mar, Acute pain of left knee M25.562 ; Left h ip pain M25.552 ; Generalized edema R60.1 and Tongue swelling R22.0 [facility] [address] [address] Mar, [place] [address] [place] [id number] [place] [address] Feb, Chronic pain G89.29 [facility] [address] [address] Feb, Diabetes E11.9 [facility] [address] [place] [id number] [place] [address] January, Chronic pain G89.29 [facility] [address] [address] January, [facility] [address] [address] January, Bipolar I disorder, most recent episode (or current) mixed, moderate F31.62 [place] [address] [place] [id number] [place] [address] Dec, Bipolar I disorder, most recent episode (or current) mixed, moderate F31.62 [place] [address] [address] Dec, Chronic pain G89.29 [facility] [address] [address] Dec, Bipolar I disorder, most recent episode (or current) mixed, moderate F31.62 [place] [address] [place] [id number] [place] [address] Dec, Diabetes E11.9 ; Essential hypertension I10 ; Chronic pain G89.29 and Morbid obesity E66.01 [facility] [address] [address] [address] [place] [address] Dec, [facility] [address] [address] Dec, Bipolar I disorder, most recent episode (or current) mixed, moderate F31.62 [place] [address] [address] [address] Dec, Bipolar I disorder, most recent episode (or current) mixed, moderate F31.62 [place] [address] [address] Nov, Chronic pain G89.29 [facility] [address] [address] Nov, Bipolar I disorder, most recent episode (or current) mixed, moderate F31.62 [facility] [address] [address] Nov, [facility] [address] [address] Nov, Bipolar I disorder, most recent episode (or current) mixed, moderate F31.62 [place] [address] [address] Nov, Bipolar I disorder, most recent episode (or current) mixed, moderate F31.62 [place] [address] [address] Nov, [facility] [address] [address] Nov, [facility] [address] [address] Nov, [facility] [address] [address] Oct, Chronic pain G89.29 [facility] [address] [address] Oct, Bipolar I disorder, most recent episode (or current) mixed, moderate F31.62 [facility] [address] [address] Oct, [facility] [address] [address] Oct, Chronic pain G89.29 ; Diabetes E11.9 ; A nxiety F41.9 and 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 [facility] [address] [address] Oct, [facility] [address] [address] Oct, Diabetes E11.9 [facility] [address] [address] Oct, Bipolar I disorder, most recent episode (or current) mixed, moderate F31.62 [facility] [address] [address] Sep, Chronic pain G89.29 [facility] [address] [address] Sep, Chronic pain G89.29 [place] [address] [address] Aug, Chronic pain G89.29 [place] [address] [address] Jul, [facility] [address] [address] Jul, Diabetes E11.9 [facility] [address] [address] Jul, Chronic pain G89.29 [facility] [address] [address] Jul, Bipolar I disorder, most recent episode (or current) mixed, moderate F31.62 [place] [address] [address] Jun, Bipolar I disorder, most recent episode (or current) mixed, moderate F31.62 [place] [address] [address] Jun, [place] [address] [address] Jun, Bipolar I disorder, most recent episode (or current) mixed, moderate F31.62 [place] [address] [address] May, Insomnia, unspecified type G47.00 [facility] [address] [address] May, Bipolar I disorder, most recent episode (or current) mixed, moderate F31.62 [facility] [address] [address] May, [place] [address] [address] May, Bipolar I disorder, most recent episode (or current) mixed, moderate F31.62 [place] [address] [address] May, Diabetes E11.9 and Essential hypertensio n I10 [place] [address] [address] Apr, Chronic pain G89.29 [place] [address] [address] Apr, Bipolar I disorder, most recent episode (or current) mixed, moderate F31.62 [place] [address] [address] Apr, [place] [address] [address] Apr, [place] [address] [address] Mar, Chronic pain G89.29 ; Headache, unspecif ied headache type R51 ; Neuropathy G62.9 ; Pain of right hip joint M25.551 and Essential hypertension I10 [place] [address] [address] Mar, Chronic pain G89.29 [place] [address] [address] Mar, Bipolar I disorder, most recent episode (or current) mixed, moderate F31.62 [place] [address] [address] Feb, Bipolar I disorder, most recent episode (or current) mixed, moderate F31.62 and Insomnia, unspecified type G47.00 [place] [address] [address] Feb, Chronic pain G89.29 [facility] [address] [address] Feb, Bipolar I disorder, most recent episode (or current) mixed, moderate F31.62 [place] [address] [address] January, Bipolar I disorder, most recent episode (or current) mixed, moderate F31.62 [place] [address] [address] January, Chronic pain G89.29 [place] [address] [address] January, Chronic pain G89.29 and Essential hypert ension I10 [place] [address] [address] January, Bipolar I disorder, most recent episode (or current) mixed, moderate F31.62 [place] [address] [address] Dec, [place] [address] [address] Dec, [place] [address] [address] Dec, [place] [address] [address] Dec, [place] [address] [address] Nov, Reactive airway disease J45.909 [place] [address] [address] Nov, [place] [address] [address] Nov, 2015 [place] [address] [address] Nov, [place] [address] [address] Nov, [place] [address] [address] Nov, Onychomycosis B35.1 ; Hammertoe M20.40 ; Kaleva or callus L84 and DM neuro manif type II E11.49 [place] [address] [address] Nov, Chronic pain G89.29 ; Leukocytosis D72.8 29 and Diabetes E11.9 [place] [address] [address] Nov, [place] [address] [address] Oct, Bronchitis J40 [place] [address] [address] Oct, [place] [address] [address] Oct, [place] [address] [address] Oct, Mastoiditis, unspecified laterality H70. 90 and Type 2 diabetes mellitus with complication E11.8 [place] [address] [address] Sep, [place] [address] [address] Sep, Dysuria R30.0 ; Cough R05 ; Benign prost atic hyperplasia with lower urinary tract symptoms, unspecified morphology N40.1 ; Hypokalemia E87.6 and Eustachian tube dysfunction, unspecified laterality H69.80 [place] [address] [address] Sep, Moderate mixed bipolar I disorder F31.62 [facility] [address] [address] Sep, Hypokalemia E87.6 [facility] [address] [address] Sep, [facility] [address] [address] Sep, Upper respiratory tract infection, unspe cified type J06.9 [facility] [address] [address] Aug, [facility] [address] [address] Aug, Dysuria R30.0 [facility] [address] [address] Aug, [facility] [address] [address] Jul, [facility] [address] [address] Jul, [facility] [address] [address] Jul, [facility] [address] [address] Jul, [facility] [address] [address] Jun, [facility] [address] [address] Jun, [facility] [address] [address] Jun, [facility] [address] [address] May, [facility] [address] [address] May, Bipolar I disorder, most recent episode (or current) mixed, moderate 296.62 [facility] [address] [address] May, [facility] [address] [place] [id number] May, Bipolar I disorder, most recent episode (or current) mixed, moderate 296.62 and Major depressive disorder, recurrent episode, severe, specified as with psychotic behavior 296.34 [facility] [address] [address] May, Bipolar I disorder, most recent episode (or current) mixed, moderate 296.62 [facility] [address] [address] May, [facility] [address] [address] Apr, [facility] [address] [address] Apr, [facility] [address] [address] Apr, Unspecified disorder of kidney and urete r 593.9 and Diabetes mellitus type 2, uncontrolled 250.02 [facility] [address] [address] Apr, [facility] [address] [address] Apr, [facility] [address] [address] Apr, [facility] [address] [address] Apr, [facility] [address] [address] Apr, Diabetes mellitus type II, uncontrolled 250.02 [facility] [address] [address] Apr, [facility] [address] [address] Mar, [facility] [address] [address] Mar, [facility] [address] [address] Mar, [facility] [address] [address] Mar, Major depressive disorder, recurrent epi sode, severe, specified as with psychotic behavior 296.34 and Bipolar I disorder, most recent episode (or current) mixed, moderate 296.62 [facility] [address] [address] Mar, Diabetes 250.00 ; Anuria 788.5 ; Nausea and vomiting 787.01 and Diarrhea 787.91 [facility] [address] [address] Mar, Diabetes 250.00 [facility] [address] [address] Mar, [facility] [address] [address] Mar, Diabetes 250.00 [facility] [address] [address] Mar, [facility] [address] [address] Mar, [facility] [address] [address] Mar, [facility] [address] [address] Mar, [facility] [address] [address] Mar, Bipolar I disorder, most recent episode (or current) mixed, moderate 296.62 and Major depressive disorder, recurrent episode, severe, specified as with psychotic behavior 296.34 [facility] [address] [address] Mar, Magnesium deficiency 275.2 ; Hypokalemia 276.8 ; Nausea & vomiting 787.01 and Diabetes mellitus type 2, uncontrolled 250.02 [place] [address] [address] Feb, [address] [address] Feb, Bipolar I disorder, most recent episode (or current) mixed, moderate 296.62 [place] [address] [address] Feb, Nausea and vomiting 787.01 ; Left elbow pain 719.42 ; Anuria 788.5 and Diabetes 250.[address] [address] Feb, [address] [address] Feb, Hypopotassemia 276.8 and Hypokalemia [address] [address] Feb, Hypopotassemia 276.8 and Hypokalemia [address] [address] Feb, Seborrheic keratoses 702.[address] [address] Feb, Hypopotassemia 276.8 and Low magnesium l evels 275.2 [place] [address] [address] January, [address] [address] January, [address] [address] January, [address] [address] January, Scalp lesion 709.9 [facility] [address] [place] [id number] [place] [address] January, [facility] [address] [place] [id number] [place] [address] Dec, Tear of medial cartilage or meniscus of knee, current 836.0 and 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 [facility] [address] [id number] [place] [address] Dec, [facility] [address] [address] [id number] [place] [address] Dec, [facility] [address] [id number] [place] [address] Dec, Squamous cell carcinoma, 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 42 [facility] [address] [id number] [place] [address] 14 Dec, 2014 [facility] [address] [id number] [place] [address] Dec, [facility] [address] [place] [id number] [place] [address] Nov, [facility] [address] [id number] [place] [address] Nov, [facility] [address] [id number] [place] [address] Nov, [facility] [address] [id number] [place] [address] Nov, [facility] [address] [id number] [place] [address] Nov, [facility] [address] [id number] [place] [address] Nov, [facility] [address] [id number] [place] [address] Nov, [facility] [address] [id number] [place] [address] Nov, [facility] [address] [id number] [place] [address] Nov, [facility] [address] [id number] [place] [address] Nov, [facility] [address] [id number] [place] [address] Nov, [facility] [address] [id number] [place] [address] Nov, [facility] [address] [id number] [place] [address] Oct, 2014 [facility] [address] [id number] [place] [address] Oct, 2014 [facility] [address] [id number] [place] [address] Oct, 2014 [facility] [address] [id number] [place] [address] Oct, 2014 [facility] [address] [id number] [place] [address] Oct, 2014 [facility] [address] [id number] [place] [address] Oct, [facility] [address] [id number] [place] [address] Oct, 2014 [facility] [address] [id number] [place] [address] Oct, [facility] [address] [id number] [place] [address] Oct, [facility] [address] [id number] [place] [address] Sep, [facility] [address] [id number] [place] [address] Sep, [facility] [address] [id number] [place] [address] Sep, [facility] [address] [id number] [place] [address] Sep, [facility] [address] [facility] [id number] [place] [address] Sep, [facility] [address] [id number] [place] [address] Sep, [facility] [address] [id number] [place] [address] Sep, [facility] [address] [id number] [place] [address] Sep, [facility] [address] [id number] [place] [address] Sep, [facility] [address] [id number] [place] [address] Sep, [facility] [address] [id number] [place] [address] Sep, [facility] [address] [id number] [place] [address] Sep, [facility] [address] [id number] [place] [address] Sep, [facility] [address] [id number] [place] [address] Sep, [facility] [address] [id number] [place] [address] Sep, [facility] [address] [id number] [place] [address] Sep, [facility] [address] [id number] [place] [address] Aug, [facility] [address] [id number] [place] [address] Aug, [facility] [address] [id number] [place] [address] Aug, [facility] [address] [id number] [place] [address] Aug, [facility] [address] [id number] [place] [address] Aug, [facility] [address] [facility] [id number] [facility] [place] [address] Aug, [facility] [address] [facility] [id number] [facility] [place] [address] Aug, [facility] [address] [id number] [place] [address] Aug, [facility] [address] [id number] [facility] [place] [address] Aug, [facility] [address] [facility] [id number] [place] [address] Aug, [facility] [address] [id number] [place] [address] Aug, [facility] [address] [place] [id number] Aug, [facility] [address] [id number] [facility] [place] [address] Aug, [facility] [address] [id number] [place] [address] Aug, [facility] [address] [id number] [place] [address] Aug, [facility] [address] [id number] [place] [address] Aug, [facility] [address] [id number] [place] [address] Aug[facility] [address] [facility] [id number] [place] [address] Aug, [facility] [address] [facility] [id number] [place] [address] Aug, [facility] [address] [facility] [id number] [place] [address] Aug, [facility] [address] [id number] [place] [address] Aug, [facility] [address] [id number] [place] [address] 08 Aug, 2014 [facility] [address] [id number] [place] [address] Aug, [facility] [address] [id number] [place] [address] Aug, [facility] [address] [id number] [place] [address] Aug, [facility] [address] [id number] [place] [address] Aug, [facility] [address] [id number] [place] [address] Aug, [facility] [address] [id number] [place] [address] Aug, [facility] [address] [id number] [place] [address] Aug, [facility] [address] [id number] [place] [address] Aug, [facility] [address] [id number] [place] [address] Jul, [facility] [address] [id number] [place] [address] Jul, [facility] [address] [id number] [place] [address] Jul, [facility] [address] [id number] [place] [address] Jul, [facility] [address] [id number] [place] [address] Jul, [facility] [id number] [place] [address] Jul, [facility] [address] [id number] [place] [address] Jul, [facility] [address] [id number] [place] [address] Jul, [facility] [address] [id number] [place] [address] Jul, [facility] [address] [id number] [place] [address] Jul, [facility] [address] [id number] [place] [address] Jun, [facility] [address] [id number] [place] [address] Jun, [facility] [address] [id number] [place] [address] Jun, [facility] [address] [id number] [place] [address] Jun, [facility] [address] [id number] [place] [address] Jun, [facility] [address] [id number] [place] [address] Jun, [facility] [address] [id number] [place] [address] Jun, [facility] [address] [id number] [place] [address] Jun, [facility] [address] [id number] [place] [address] Jun, [facility] [address] [id number] [place] [address] Jun, [facility] [address] [id number] [place] [address] 29 May, 2014 [facility] [address] [id number] [place] [address] 29 Sep, 2013 [facility] [address] [id number] [place] [address] 26 Sep, 2013 [facility] [address] [id number] [place] [address] 26 Sep, 2013 [facility] [place] [facility] [address] [id number] [place] [address] 17 Sep, 2013 [facility] [place] [facility] [address] [id number] [facility] [place] [address] 17 May, 2013 [facility] [place] [facility] [address] [facility] [id number] [facility] [place] [address] 15 May, 2013 [facility] [place] [facility] [address] [facility] [id number] [facility] [place] [address] 15 May, 2013 [facility] [place] [facility] [address] [id number] [place] [address] 15 May, 2013 [facility] [place] [facility] [address] [facility] [id number] [facility] [place] [address] 15 May, 2013 [facility] [place] [facility] [address] [id number] [facility] [place] [address] 10 May, 2013 [facility] [place] [facility] [address] [id number] [place] [address] 10 May, 2013 [facility] [place] [facility] [address] [id number] [facility] [place] [address] 09 May, 2013 [facility] [place] [facility] [address] [facility] [id number] [facility] [place] [address] 09 May, 2013 [facility] [place] [facility] [address] [id number] [facility] [place] [address] 04 May, 2013 [facility] [place] [facility] [address] [facility] [id number] [place] [address] 04 May, 2013 [facility] [place] [facility] [address] [id number] [place] [address] Apr, 2013 [facility] [place] [facility] [address] [facility] [id number] [place] [address] Apr, 2013 [facility] [place] [facility] [address] [id number] [place] [address] Apr, 2013 [facility] [place] [facility] [address] [facility] [id number] [place] [address] Apr, 2013 [facility] [place] [facility] [address] [id number] [place] [address] Apr, 2013 [facility] [place] [facility] [address] [id number] [place] [address] Apr, [facility] [place] [facility] [address] [id number] [facility] [place] [address] Apr, [facility] [place] [facility] [address] [facility] [id number] [facility] [place] [address] Apr, [facility] [place] [facility] [address] [id number] [facility] [place] [address] Apr, [facility] [place] [facility] [address] [id number] [facility] [place] [address] Apr, [facility] [place] [facility] [address] [id number] [facility] [place] [address] Apr, [facility] [place] [facility] [address] [id number] [place] [address] Apr, [facility] [place] [facility] [address] [id number] [place] [address] Apr, [facility] [place] [facility] [address] [id number] [facility] [place] [address] Apr, [facility] [place] [facility] [address] [id number] [place] [address] Apr, [facility] [place] [facility] [address] [id number] [place] [address] Mar, [facility] [place] [facility] [address] [id number] [place] [address] Mar, [facility] [place] [facility] [address] [id number] [facility] [place] [address] Mar, [facility] [place] [facility] [address] [id number] [place] [address] Mar, [facility] [place] [facility] [address] [id number] [place] [address] Mar, [facility] [place] [facility] [address] [id number] [place] [address] Mar, [facility] [place] [facility] [address] [id number] [place] [address] Mar, [facility] [place] [facility] [address] [facility] [id number] [place] [address] Mar, 2013 [facility] [place] [facility] [address] [id number] [place] [address] Mar, 2013 [facility] [place] [facility] [address] [id number] [place] [address] Mar, 2013 [facility] [place] [facility] [address] [id number] [place] [address] Mar, 2013 [facility] [place] [facility] [address] [facility] [id number] [place] [address] Mar, 2013 [facility] [place] [facility] [address] [id number] [place] [address] Mar, 2013 [facility] [place] [facility] [address] [id number] [place] [address] Mar, 2013 [facility] [place] [facility] [address] [id number] [place] [address] Mar, 2013 [facility] [place] [facility] [address] [id number] [place] [address] Mar, 2013 [facility] [place] [facility] [address] [id number] [place] [address] Mar, 2013 [facility] [place] [facility] [address] [id number] [place] [address] Mar, 2013 [facility] [place] [facility] [address] [id number] [place] [address] Feb, [facility] [place] [facility] [address] [id number] [place] [address] Feb, [facility] [place] [facility] [address] [facility] [id number] [place] [address] Feb, [facility] [place] [facility] [address] [id number] [place] [address] Feb, [facility] [place] [facility] [address] [id number] [place] [address] Feb, [facility] [place] [facility] [address] [id number] [place] [address] Feb, [facility] [place] [facility] [address] [facility] [id number] [facility] [place] [address] Feb, [facility] [place] [facility] [address] [facility] [id number] [facility] [place] [address] Feb, [facility] [place] [facility] [address] [facility] [id number] [facility] [place] [address] Feb, [facility] [place] [facility] [address] [facility] [id number] [facility] [place] [address] Feb, [facility] [place] [facility] [address] [facility] [id number] [facility] [place] [address] Feb, [facility] [place] [facility] [address] [facility] [id number] [facility] [place] [address] Feb, [facility] [place] [facility] [address] [id number] [place] [address] Feb, [facility] [place] [facility] [address] [id number] [facility] [place] [address] Feb, [facility] [place] [facility] [address] [facility] [id number] [place] [address] January, [facility] [place] [facility] [address] [id number] [facility] [place] [address] January, [facility] [place] [facility] [address] [id number] [place] [address] January, [facility] [place] [facility] [address] [id number] [place] [address] January, [facility] [place] [facility] [address] [facility] [id number] [place] [address] January, [facility] [place] [facility] [address] [facility] [id number] [place] [address] January, [facility] [place] [facility] [address] [facility] [id number] [place] [address] January, [facility] [place] [facility] [address] [id number] [facility] [place] [address] January, [facility] [place] [facility] [address] [id number] [place] [address] January, [facility] [place] [facility] [address] [id number] [place] [address] January, [facility] [place] [facility] [address] [facility] [id number] [place] [address] January, [facility] [place] [facility] [address] [id number] [place] [address] January, [facility] [place] [facility] [address] [id number] [place] [address] January, [facility] [place] [facility] [address] [id number] [place] [address] January, [facility] [place] [facility] [address] [id number] [place] [address] Dec, [facility] [place] [facility] [address] [id number] [place] [address] Dec, [facility] [place] [facility] [address] [id number] [place] [address] Dec, [facility] [place] [facility] [address] [id number] [place] [address] Dec, [facility] [place] [facility] [address] [id number] [place] [address] Dec, [facility] [place] [facility] [address] [id number] [place] [address] Dec, [facility] [place] [facility] [address] [id number] [place] [address] Dec, [facility] [place] [facility] [address] [id number] [place] [address] Dec, [facility] [place] [facility] [address] [id number] [place] [address] Dec, [facility] [place] [facility] [address] [id number] [place] [address] Dec, [facility] [place] [facility] [address] [id number] [place] [address] Nov, [facility] [place] [facility] [address] [id number] [place] [address] Nov, [facility] [place] [facility] [address] [id number] [place] [address] Nov, [facility] [place] [facility] [address] [id number] [place] [address] Nov, [facility] [place] [facility] [address] [id number] [place] [address] Nov, [facility] [place] [facility] [address] [id number] [place] [address] Nov, [facility] [place] [facility] [address] [id number] [place] [address] Nov, [facility] [place] [facility] [address] [id number] [place] [address] Nov, [facility] [place] [facility] [address] [id number] [place] [address] Nov, [facility] [place] [facility] [address] [id number] [place] [address] Nov, [facility] [place] [facility] [address] [id number] [place] [address] Oct, [facility] [place] [facility] [address] [id number] [place] [address] Oct, [facility] [place] [facility] [address] [id number] [place] [address] Oct, [facility] [place] [facility] [address] [id number] [place] [address] Oct, [facility] [place] [facility] [address] [id number] [place] [address] Oct, [facility] [place] [facility] [address] [id number] [place] [address] Oct, [facility] [place] [facility] [address] [id number] [place] [address] 14 Oct, 2013 [facility] [place] [facility] [address] [id number] [place] [address] 14 Oct, 2013 [facility] [place] [facility] [address] [facility] [id number] [place] [address] Oct, [facility] [place] [facility] [address] [id number] [place] [address] Oct, [facility] [place] [facility] [address] [id number] [place] [address] Oct, [facility] [place] [facility] [address] [id number] [place] [address] Oct, [facility] [place] [facility] [address] [id number] [place] [address] Oct, [facility] [place] [facility] [address] [id number] [place] [address] Oct, [facility] [place] [facility] [address] [id number] [place] [address] Sep, [facility] [place] [facility] [address] [id number] [place] [address] Sep, [facility] [place] [facility] [address] [id number] [place] [address] Sep, [facility] [place] [facility] [address] [id number] [place] [address] Sep, [facility] [place] [facility] [address] [id number] [place] [address] Sep, [facility] [place] [facility] [address] [id number] [place] [address] Sep, [facility] [place] [facility] [address] [id number] [place] [address] Sep, [facility] [place] [facility] [address] [id number] [place] [address] Sep, [facility] [place] [facility] [address] [id number] [place] [address] Sep, [facility] [place] [facility] [address] [id number] [place] [address] Sep, [facility] [place] [facility] [address] [id number] [place] [address] Aug, [facility] [place] [facility] [address] [id number] [place] [address] Aug, [facility] [place] [facility] [address] [id number] [place] [address] Jul, [facility] [place] [facility] [address] [id number] [place] [address] Jul, [facility] [place] [facility] [address] [id number] [place] [address] Jul, [facility] [place] [facility] [address] [id number] [place] [address] Jul, [facility] [place] [facility] [address] [id number] [place] [address] Jul, [facility] [place] [facility] [address] [id number] [place] [address] Jul, [facility] [place] [facility] [address] [id number] [place] [address] Jul, [facility] [place] [facility] [address] [id number] [place] [address] Jul, [facility] [place] [facility] [address] [id number] [place] [address] Jul, [facility] [place] [facility] [address] [id number] [place] [address] Jul, [facility] [place] [facility] [address] [id number] [place] [address] Jul, [facility] [place] [facility] [address] [id number] [place] [address] Jul, [facility] [place] [facility] [address] [id number] [place] [address] Jul, [facility] [place] [facility] [address] [id number] [place] [address] Jul, [facility] [place] [facility] [address] [id number] [place] [address] Jul, [facility] [place] [facility] [address] [id number] [place] [address] Jul, [facility] [place] [facility] [address] [id number] [place] [address] Jul, [facility] [place] [facility] [address] [id number] [place] [address] Jul, [facility] [place] [facility] [address] [id number] [place] [address] Jul, 2012 [facility] [place] [facility] [address] [id number] [place] [address] Jun, 2012 [facility] [place] [facility] [address] [id number] [place] [address] Jun, 2012 [facility] [place] [facility] [address] [id number] [place] [address] Jun, 2012 [facility] [place] [facility] [address] [id number] [place] [address] Jun, 2012 [facility] [place] [facility] [address] [id number] [place] [address] Jun, [facility] [place] [facility] [address] [id number] [place] [address] Jun, 2012 [facility] [place] [facility] [address] [id number] [place] [address] Jun, 2012 [facility] [place] [facility] [address] [id number] [place] [address] Jun, 2012 [facility] [place] [facility] [address] [id number] [place] [address] Jun, 2012 [facility] [place] [facility] [address] [id number] [place] [address] Jun, 2012 [facility] [place] [facility] [address] [id number] [place] [address] Jun, 2012 [facility] [place] [facility] [address] [id number] [place] [address] May, 2012 [facility] [place] [facility] [address] [id number] [facility] [place] [address] 25 May, 2012 [facility] [place] [facility] [address] [id number] [place] [address] 19 May, 2012 [facility] [place] [facility] [address] [facility] [id number] [place] [address] 17 May, 2012 [facility] [place] [facility] [address] [id number] [place] [address] 11 May, 2012 [facility] [place] [facility] [address] [id number] [place] [address] 10 May, 2012 [facility] [place] [facility] [address] [id number] [place] [address] 09 May, 2012 [facility] [place] [facility] [address] [id number] [place] [address] 05 May, 2012 [facility] [place] [facility] [address] [id number] [place] [address] Apr, [facility] [place] [facility] [address] [id number] [place] [address] Apr, [facility] [place] [facility] [address] [id number] [place] [address] Apr, [facility] [place] [facility] [address] [id number] [place] [address] Apr, [facility] [place] [facility] [address] [id number] [place] [address] Apr, [facility] [place] [facility] [address] [id number] [place] [address] Mar, [facility] [place] [facility] [address] [id number] [place] [address] Mar, [facility] [place] [facility] [address] [id number] [place] [address] Mar, [facility] [place] [facility] [address] [id number] [place] [address] Mar, [facility] [place] [facility] [address] [id number] [place] [address] Mar, [facility] [place] [facility] [address] [id number] [place] [address] Mar, [facility] [place] [facility] [address] [id number] [place] [address] Mar, [facility] [place] [facility] [address] [id number] [place] [address] Mar, [facility] [place] [facility] [address] [id number] [place] [address] Feb, [facility] [place] [facility] [address] [id number] [place] [address] Feb, [facility] [place] [facility] [address] [id number] [place] [address] January, [facility] [place] [facility] [address] [id number] [place] [address] January, [facility] [address] [id number] [place] [address] Dec, [facility] [place] [facility] [address] [id number] [place] [address] Dec, [facility] [place] [facility] [address] [id number] [place] [address] Nov, [facility] [place] [facility] [address] [id number] [place] [address] Nov, [facility] [place] [facility] [address] [id number] [place] [address] Nov, [facility] [place] [facility] [address] [id number] [place] [address] Nov, [facility] [place] [facility] [address] [id number] [place] [address] Oct, [facility] [place] [facility] [address] [id number] [place] [address] Oct, [facility] [place] [facility] [address] [id number] [place] [address] Oct, [facility] [place] [facility] [address] [id number] [place] [address] 26 Oct, 2012 [facility] [place] [facility] [address] [id number] [place] [address] 16 Oct, 2012 [facility] [place] [facility] [address] [id number] [place] [address] 14 Oct, 2012 [facility] [place] [facility] [address] [id number] [place] [address] 08 Oct, 2012 [facility] [place] [facility] [address] [id number] [place] [address] 07 Oct, 2012 [facility] [place] [facility] [address] [id number] [place] [address] Oct, [facility] [place] [facility] [address] [id number] [place] [address] Sep, [facility] [place] [facility] [address] [id number] [place] [address] Sep, [facility] [place] [facility] [address] [id number] [place] [address] Sep, [facility] [place] [facility] [address] [id number] [place] [address] Sep, [facility] [place] [facility] [address] [id number] [place] [address] Sep, [facility] [place] [facility] [address] [id number] [place] [address] Sep, [facility] [place] [facility] [address] [id number] [place] [address] Sep, [facility] [place] [facility] [address] [id number] [place] [address] Sep, [facility] [place] [facility] [address] [id number] [place] [address] Aug, [facility] [place] [facility] [address] [id number] [place] [address] Aug, [facility] [place] [facility] [address] [id number] [place] [address] Aug, [facility] [place] [facility] [address] [id number] [place] [address] Aug, [facility] [place] [facility] [address] [id number] [place] [address] Aug, [facility] [place] [facility] [address] [id number] [place] [address] Aug, [facility] [place] [facility] [address] [id number] [place] [address] Aug, [facility] [place] [facility] [address] [id number] [place] [address] Aug, [facility] [place] [facility] [address] [id number] [place] [address] Jul, [facility] [place] [facility] [address] [id number] [place] [address] Jul, [facility] [place] [facility] [address] [id number] [place] [address] Jul, [facility] [place] [facility] [address] [id number] [place] [address] Jul, [facility] [place] [facility] [address] [id number] [place] [address] Jul, [facility] [place] [facility] [address] [id number] [place] [address] Jul, [facility] [place] [facility] [address] [id number] [place] [address] Jun, [facility] [place] [facility] [address] [id number] [place] [address] Jun, [facility] [place] [facility] [address] [id number] [place] [address] Jun, [facility] [place] [facility] [address] [id number] [place] [address] Jun, [facility] [place] [facility] [address] [id number] [place] [address] Jun, [facility] [place] [facility] [address] [id number] [place] [address] Jun, [facility] [place] [facility] [address] [facility] [id number] [place] [address] Jun, [facility] [place] [facility] [address] [id number] [place] [address] Jun, [facility] [place] [facility] [address] [id number] [place] [address] Jun, [facility] [place] [facility] [address] [id number] [place] [address] May, [facility] [place] [facility] [address] [facility] [id number] [place] [address] 24 May, 2012 [facility] [place] [facility] [address] [id number] [place] [address] May, [facility] [place] [facility] [address] [id number] [place] [address] Apr, [facility] [place] [facility] [address] [id number] [place] [address] Apr, [facility] [place] [facility] [address] [id number] [place] [address] Apr, [facility] [place] [facility] [address] [id number] [place] [address] Apr, [facility] [place] [facility] [address] [id number] [place] [address] Apr, [facility] [place] [facility] [address] [id number] [place] [address] Apr, [facility] [place] [facility] [address] [id number] [place] [address] Mar, [facility] [place] [facility] [address] [id number] [place] [address] Mar, [facility] [place] [facility] [address] [id number] [place] [address] Mar, [facility] [address] [id number] [place] [address] Mar, [facility] [address] [id number] [place] [address] 29 Feb, 2012 [facility] [id number] [place] [address] Feb, [facility] [address] [id number] [place] [address] Feb, [facility] [address] [id number] [place] [address] Feb, [facility] [address] [id number] [place] [address] Feb, [facility] [address] [id number] [place] [address] January, [facility] [address] [id number] [place] [address] January, [facility] [address] [id number] [place] [address] January, [facility] [address] [id number] [place] [address] January, [facility] [address] [id number] [place] [address] January, [facility] [address] [id number] [place] [address] January, [facility] [address] [id number] [place] [address] Dec, [facility] [address] [id number] [place] [address] Dec, [facility] [address] [id number] [place] [address] Dec, [facility] [address] [id number] [place] [address] Dec, [facility] [address] [id number] [place] [address] Dec, [facility] [address] [id number] [place] [address] Nov, [facility] [address] [id number] [place] [address] 14 Nov, 2011 [facility] [address] [id number] [place] [address] 12 Nov, 2011 [facility] [address] [id number] [place] [address] 07 Nov, 2011 [facility] [address] [id number] [place] [address] 29 Oct, 2011 [facility] [address] [id number] [place] [address] 28 Oct, 2011 [facility] [address] [id number] [place] [address] 24 Oct, 2011 [facility] [address] [id number] [place] [address] 13 Oct, 2011 [facility] [id number] [place] [address] 08 Oct, 2011 [facility] [address] [id number] [place] [address] Sep, [facility] [address] [id number] [place] [address] Sep, [facility] [address] [id number] [place] [address] Sep, [facility] [address] [id number] [place] [address] Sep, [facility] [address] [id number] [place] [address] Sep, [facility] [address] [id number] [place] [address] Sep, [facility] [address] [id number] [place] [address] Aug, [facility] [address] [id number] [place] [address] Aug, [facility] [address] [id number] [place] [address] Aug, [facility] [address] [id number] [facility] [place] [address] Jul, [facility] [address] [id number] [place] [address] Jul, [facility] [address] [id number] [place] [address] Jul, [facility] [address] [id number] [place] [address] Jul, [facility] [address] [id number] [place] [address] Jun, [facility] [address] [id number] [place] [address] Jun, [facility] [address] [id number] [place] [address] Jun, [facility] [address] [id number] [place] [address] Jun, [facility] [address] [id number] [place] [address] Jun, [facility] [address] [id number] [place] [address] Jun, [facility] [address] [id number] [place] [address] Mar, [facility] [address] [id number] [place] [address] Dec, [facility] [address] [id number] [place] [address] Dec, [facility] [address] [id number] [place] [address] Nov, [facility] [address] [id number] [place] [address] 16 Nov, 2010 [facility] [address] [id number] [place] [address] Sep, [facility] [address] [id number] [place] [address] 31 Aug, 2010 [facility] [address] [id number] [place] [address] 29 Aug, 2010 [facility] [address] [id number] [place] [address] 29 Aug, 2010 [facility] [address] [id number] [place] [address] 29 Aug, 2010 [facility] [address] [id number] [place] [address] 27 Aug, 2010 [facility] [address] [id number] [place] [address] 14 Aug, 2010 [facility] [address] [id number] [place] [address] 08 Aug, 2010 [facility] [address] [id number] [place] [address] 08 Aug, 2010 [facility] [address] [id number] [place] [address] 07 Aug, 2010 [facility] [address] [id number] [place] [address] 06 Aug, 2010 [facility] [address] [id number] [place] [address] 06 Aug, 2010 [facility] [address] [id number] [place] [address] Aug, [facility] [address] [id number] [place] [address] 30 Jul, 2010 [facility] [address] [id number] [place] [address] 30 Jul, 2010 [facility] [address] [id number] [place] [address] 30 Jul, 2010 [facility] [address] [id number] [place] [address] 17 Jul, 2010 [facility] [address] [id number] [place] [address] 08 Jul, 2010 [facility] [address] [id number] [place] [address] Jul, [facility] [address] [id number] [place] [address] Jun, [facility] [address] [id number] [place] [address] Jun, [facility] [address] [id number] [place] [address] Jun, [facility] [address] [id number] [place] [address] Jun, [facility] [address] [id number] [place] [address] Apr, [facility] [address] [id number] [place] [address] Mar, [facility] [address] [id number] [place] [id number] Feb, [facility] [address] [id number] [place] [address] January, [facility] [address] [id number] [place] [address] 15 Dec, 2009 [facility] [address] [id number] [place] [address] Nov, [facility] [address] [id number] [place] [address] Aug, [facility] [address] [id number] [place] [address] Aug, [facility] [address] [id number] [place] [address] Aug, [facility] [address] [id number] [place] [address] Jul, [facility] [address] [id number] [place] [address] Jul, [facility] [id number] [place] [address] Jul, [facility] [address] [id number] [place] [address] Jun, [facility] [address] [id number] [place] [address] Jun, [facility] [id number] [place] [address] Jun, [facility] [id number] [place] [address] Jun, [facility] [address] [address] Jun, [facility] [id number] [place] [address] Jun, [facility] [id number] [place] [address] Apr, [facility] [id number] [place] [address] Apr, [facility] [id number] [place] [address] Feb, [facility] [id number] [place] [address] January, [facility] [address] [id number] [place] [address] Dec, IMMUNIZATIONS No Known Immunizations SOCIAL HISTORY [...] Medical History skin cancer-basal cell R jain (removed ) Medical History Arthritis Medical History [...] tunnel release (Left) 2000 Surgical History EGD ([facility]) 2009 Surgical History colonoscopy 2009 ([facility]), 2013 ([place] ) Surgical History heart cath: CAD w/ [...] inability to urinate 09/16/15 Hospitalization History [facility] inpatient mental health ea rly 2000's Hospitalization History hyperkalemia 10/2017 Hospitalization History fluid in lung
--- OUTSIDE RECORDS SUMMARY | 2020-03-01 17:01 | XMS REPORT ---
Author Author Michele WASHBURN Organization [facility] Address [address] [place] [address] Care Team Providers Care Wire Strander Name Role Phone NOEMI WASHBURN Unavailable PROBLEMS Type Condition ICD9-CM Code QUN27-IB Code Onset Dates Condition S tatus SNOMED Code Problem DM neuro manif type II E11.49 Active 78320990 Problem Chronic pain G89.29 Active 9884962 1 Problem Diabetes E11.9 Active 85245678 Problem Reactive airway disease J45.909 Active 785800087444 Problem Leukocytosis D72.829 Active 6206562 06 Problem Insomnia, unspecified type G47.00 Act sharon 023383419 Problem Bipolar I disorder, most recent episode (or curr ent) mixed, moderate F31.62 Active 36923371 Problem Primary osteoarthritis of right knee M17.11 Active 450948144347090 Problem Cough R05 Active 49366623 Problem Pure hypercholesterolemia E78.00 Acti ve 357783560 Problem Dysuria R30.0 Active 18971564 Problem Benign prostatic hyperplasia with lower urinary tract symptoms, unspecified morphology N40.1 Active 14346 6007 Problem Eustachian tube dysfunction, unspecified laterality H69.80 Active 68602792 Problem Polyneuropathy associated with underlying disease G63 Active 757370786 Problem Diabetic polyneuropathy associated with type 2 d iabetes mellitus E11.42 Active 07407917 Problem Anemia of chronic illness D63.8 Acti ve 034921510 Problem Chronic lymphocytic leukemia C91.10 A ctive 17726113 Problem Bilateral primary osteoarthritis of knee M17.0 Active 810033109 Problem 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 Active 634743037 Problem Eye exam abnormal R93.8 Active 16 5582242 Problem Retinal edema H35.81 Active 695010 6 Problem Lymphocytosis D72.820 Active 399132 09 Problem Bipolar disorder, in partial remission, most rec ent episode depressed F31.75 Active 17309041 Problem Hypokalemia E87.6 Active 07708328 Problem Falling R29.6 Active 356023461 Problem Pressure ulcer of other site, stage 3 L89.893 Active 728921187 Problem Other iron deficiency anemia D50.8 A ctive 50481421 Problem Mild cognitive impairment G31.84 Acti ve 182934421 Problem Skin cancer C44.90 Active 81480405 7 Problem retirement (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 Z79.4 Active 957385600 Problem Morbid obesity E66.01 Active 52369 6002 Problem Mood disorder F39 Active 820791 05 Problem Anxiety F41.9 Active 96375287 Problem Essential hypertension I10 Active 02525869 Problem Bipolar disorder F31.9 Active 137 22052 Problem Chronic diastolic (congestive) heart failure I50.3 2 Active 843101946 Problem Psychophysiological insomnia F51.04 A ctive 613104291 Problem Type 2 diabetes mellitus with diabetic neuropathy, uns pecified E11.40 Active 64977654 ALLERGIES No Information ENCOUNTERS Encounter Location Date Diagnosis [place] [address] [address] Oct, [facility] [address] [address] Sep, [place] [address] [address] Sep, [facility] [address] [address] Sep, [place] [address] [address] Sep, Mood disorder F39 [facility] [address] [address] Sep, [facility] [address] [address] Sep, Mood disorder F39 [facility] [address] [address] Sep, [facility] [address] [address] Aug, Mood disorder [address] [place], [place] [address] [place] [id number] [place] [address] Aug, [facility] [address] [address] Aug, [facility] [address] [address] Aug, [facility] [address] [address] Aug, [facility] [address] [address] Aug, [facility] [address] [address] Aug, [facility] [address] [address] Aug, [facility] [address] [address] Aug, Essential hypertension I10 [facility] [address] [address] Aug, Bipolar disorder, in partial remission, most recent episode depressed F31.75 and Mild cognitive impairment G31.84 [facility] [address] [address] Aug, Mood disorder F39 [facility] [address] [address] Aug, [facility] [address] [address] Aug, Bipolar disorder, in partial remission, most recent episode depressed F31.75 and Mild cognitive impairment G31.84 [facility] [address] [address] Jul, Bipolar disorder, in partial remission, most recent episode depressed F31.75 and Mild cognitive impairment G31.84 [facility] [address] [address] Jul, Psychophysiological insomnia F51.04 [facility] [address] [address] Jul, [facility] [address] [address] Jul, [facility] [address] [address] Jul, [facility] [address] [address] Jul, [facility] [address] [address] Jul, [facility] [address] [address] Jul, [facility] [address] [address] Jul, Bipolar disorder, in partial remission, most recent episode depressed F31.75 and Mild cognitive impairment G31.84 [place] [address] [address] Jul, Chronic pain G89.29 ; Diabetes E11.9 ; E ssential hypertension I10 ; Ill feeling R68.89 ; Local infection of the skin and subcutaneous tissue, unspecified L08.9 and Other injury of unspecified body region, initial encounter T14.8XXA [place] [address] [address] Jun, Bipolar disorder, in partial remission, most recent episode depressed F31.75 and Mild cognitive impairment G31.84 [facility] [address] [address] Jun, [facility] [address] [address] Jun, Bipolar disorder, in partial remission, most recent episode depressed F31.75 and Mild cognitive impairment G31.84 [facility] [address] [address] Jun, Psychophysiological insomnia F51.04 [place] [address] [address] Jun, Psychophysiological insomnia F51.04 ; Ch ronic pain G89.29 ; Bipolar I disorder, most recent episode (or current) mixed, moderate F31.62 ; 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 ; Polyneuropathy associated with underlying disease G63 ; Type 2 diabetes mellitus with diabetic neuropathy, unspecified E11.40 ; retirement (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 Z79.4 and Hyperglycemia R73.9 [place] [address] [address] Jun, Bipolar disorder, in partial remission, most recent episode depressed F31.75 and Mild cognitive impairment G31.84 [place] [address] [address] Jun, [address] [address] Jun, Bipolar disorder F31.9 [place] [address] [address] May, Bipolar disorder, in partial remission, most recent episode depressed F31.75 and Mild cognitive impairment G31.84 [place] [address] [address] May, [address] [address] Apr, Chronic pain G89.29 and Bipolar disorder F31.9 [place] [address] [address] Mar, Bipolar disorder F31.9 and Chronic pain G89.[address] [address] Feb, Bipolar disorder F31.9 [place] [address] [address] Feb, Cellulitis of right upper extremity L03. 113 and Skin abrasion T14.8XXA [place] [address] [address] Feb, Bipolar disorder, in partial remission, most recent episode depressed F31.75 and Mild cognitive impairment G31.84 [facility] [address] [address] Feb, Chronic pain G89.29 [facility] [address] [address] Feb, Bipolar disorder, in partial remission, most recent episode depressed F31.75 and Mild cognitive impairment G31.84 [facility] [address] [address] January, Bipolar disorder, in partial remission, most recent episode depressed F31.75 and Mild cognitive impairment G31.84 [facility] [address] [address] January, Chronic pain G89.29 and Bipolar disorder F31.9 [facility] [address] [address] January, Bipolar disorder, in partial remission, most recent episode depressed F31.75 and Mild cognitive impairment G31.84 [facility] [address] [address] Dec, [facility] [address] [address] Dec, Chronic pain G89.29 and Bipolar disorder F31.9 [facility] [address] [address] Dec, Edema of both lower extremities R60.0 [facility] [address] [address] Dec, Bipolar disorder F31.9 [facility] [address] [address] Dec, Bipolar disorder, in partial remission, most recent episode depressed F31.75 and Mild cognitive impairment G31.84 [facility] [address] [address] Nov, [place] [address] [address] Nov, Chronic pain G89.[address] [address] Nov, Bipolar disorder, in partial remission, most recent episode depressed F31.75 and Mild cognitive impairment G31.[address] [address] Nov, Bipolar disorder F31.[address] [address] Nov, Encounter for Medicare annual wellness e [...] unspecified morphology N40.1 and Essential hypertension I10 [address] [address] Oct, Chronic pain G89.[address] [address] Oct, Diabetes E11.[address] [address] Oct, Bipolar I disorder, most recent episode (or current) mixed, moderate F31.62 and Mild cognitive impairment G31.[address] [address] Oct, Bipolar I disorder, most recent episode (or current) mixed, moderate F31.62 and Mild cognitive impairment G31.[address] [address] Sep, Bipolar I disorder, most recent episode (or current) mixed, moderate F31.62 and Mild cognitive impairment G31.84 [place] [address] [address] Sep, [place] [address] [address] Sep, Diabetes E11.9 ; Hypoxia R09.02 ; Hyperg lycemia R73.9 ; Therapeutic drug monitoring Z51.81 ; BMI 50.0-59.9, adult Z68.43 and Skin cancer C44.90 [place] [address] [address] Sep, Chronic pain G89.29 [place] [address] [address] Sep, Bipolar I disorder, most recent episode (or current) mixed, moderate F31.62 [place] [address] [address] Sep, [place] [address] [address] Sep, [place] [address] [address] Aug, Chronic pain G89.29 [place] [address] [address] Aug, Bipolar I disorder, most recent episode (or current) mixed, moderate F31.62 [place] [address] [address] Aug, Bipolar I disorder, most recent episode (or current) mixed, moderate F31.62 and Mild cognitive impairment G31.84 [place] [address] [address] Jul, [place] [address] [address] Jul, Chronic pain G89.29 [facility] [address] [place] [id number] [place] [address] Jul, Bipolar I disorder, most recent episode (or current) mixed, moderate F31.62 and Mild cognitive impairment G31.84 [facility] [address] [address] Jul, Bipolar I disorder, most recent episode (or current) mixed, moderate F31.62 and MCI (mild cognitive impairment) G31.84 [place] [address] [address] Jul, [place] [address] [address] Jul, [place] [address] [address] Jul, Bipolar I disorder, most recent episode (or current) mixed, moderate F31.62 [place] [address] [place] [id number] [place] [address] Jul, Chronic pain G89.29 [place] [address] [address] Jun, Bipolar I disorder, most recent episode (or current) mixed, moderate F31.62 [place] [address] [place] [id number] [place] [address] Jun, Pre-procedure lab exam Z01.812 [place] [id number] [place] [address] Jun, [place] [address] [id number] [place] [id number] Jun, [address] [address] Jun, [place] [address] [place] [id number] [place] [address] Jun, Forgetfulness R68.89 ; Pre-syncope R55 ; Localized edema R60.0 ; Other iron deficiency anemia D50.8 and BMI 50.0-59.9, adult Z68.43 [place] [address] [address] Jun, Chronic pain G89.29 [place] [address] [address] Jun, Chronic pain G89.29 [place] [address] [address] Jun, Bipolar I disorder, most recent episode (or current) mixed, moderate F31.62 [place] [address] [address] May, Chronic pain G89.29 [place] [address] [address] Apr, [place] [address] [address] Apr, Chronic pain G89.29 [place] [address] [address] Apr, Primary osteoarthritis of right knee M17 .11 [place] [address] [address] Mar, [place] [address] [address] Mar, BMI 50.0-59.9, adult Z68.43 and Bipolar disorder, in partial remission, most recent episode depressed F31.75 [place] [address] [address] Mar, Diabetes E11.9 ; Pure hypercholesterolem ia E78.00 ; Essential hypertension I10 ; Nausea with vomiting, unspecified R11.2 and Headache, unspecified headache type R51 [place] [address] [address] Mar, Bipolar I disorder, most recent episode (or current) mixed, moderate F31.62 [place] [address] [address] Mar, Bipolar I disorder, most recent episode (or current) mixed, moderate F31.62 [place] [address] [address] Mar, Chronic pain G89.29 [place] [address] [address] Mar, Bipolar I disorder, most recent episode (or current) mixed, moderate F31.62 [place] [address] [address] Feb, Bipolar I disorder, most recent episode (or current) mixed, moderate F31.62 [place] [address] [address] Feb, Chronic pain G89.29 [place] [address] [address] Feb, Decubitus ulcer of right foot, stage 3 L 89.893 and BMI 50.0-59.9, adult Z68.43 [place] [address] [address] Feb, Bipolar I disorder, most recent episode (or current) mixed, moderate F31.62 [place] [address] [address] Feb, [place] [address] [address] January, [place] [address] [address] January, Chronic pain G89.29 [place] [address] [address] January, Bipolar I disorder, most recent episode (or current) mixed, moderate F31.62 [place] [address] [address] January, Bipolar I disorder, most recent episode (or current) mixed, moderate F31.62 [place] [address] [address] Dec, Bipolar I disorder, most recent episode (or current) mixed, moderate F31.62 and BMI 50.0-59.9, adult Z68.43 [place] [address] [address] Dec, Bipolar I disorder, most recent episode (or current) mixed, moderate F31.62 [place] [address] [address] Dec, Chronic pain G89.[address] [address] Dec, DM neuro manif type II E11.49 ; Right fl ank pain R10.9 ; 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 ; Encounter for medication monitoring Z51.81 and BMI 50.0-59.9, adult Z68.43 [place] [address] [address] Dec, Bipolar I disorder, most recent episode (or current) mixed, moderate F31.62 [place] [address] [address] Nov, Bipolar I disorder, most recent episode (or current) mixed, moderate F31.62 [place] [address] [address] Nov, Chronic pain G89.29 [place] [address] [address] Nov, Bipolar I disorder, most recent episode (or current) mixed, moderate F31.[address] [address] Nov, Hypokalemia E87.6 [place] [address] [address] Nov, Bipolar I disorder, most recent episode (or current) mixed, moderate F31.62 [place] [address] [address] Oct, Chronic pain G89.29 [facility] [address] [address] Oct, BMI 50.0-59.9, adult Z68.43 and Bipolar I disorder, most recent episode (or current) mixed, moderate F31.62 [place] [address] [address] Oct, Bipolar I disorder, most recent episode (or current) mixed, moderate F31.62 [place] [address] [address] Oct, [place] [address] [address] Oct, Hypokalemia E87.6 [place] [address] [address] Oct, DM neuro manif type II E11.49 [place] [address] [address] Oct, Bipolar I disorder, most recent episode (or current) mixed, moderate F31.62 [place] [address] [address] Oct, Bipolar I disorder, most recent episode (or current) mixed, moderate F31.62 [place] [address] [address] Oct, Hyperkalemia E87.5 ; Falling R29.6 ; BMI 50.0-59.9, adult Z68.43 and Acute left ankle pain M25.572 [place] [address] [address] Oct, DM neuro manif type II E11.49 [place] [address] [address] Oct, [address] [place] [address] Sep, Chronic pain G89.29 [place] [address] [address] Sep, [facility] [address] [address] Sep, Bilateral primary osteoarthritis of knee M17.0 [place] [address] [address] Sep, Generalized edema R60.1 [place] [address] [address] Sep, Bipolar I disorder, most recent episode (or current) mixed, moderate F31.62 [place] [address] [address] Sep, Hypoxia R09.02 ; Other hypervolemia E87. 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 ; Anemia of chronic illness D63.8 and BMI 50.0-59.9, adult Z68.43 [place] [address] [address] Sep, [place] [address] [address] Sep, Bipolar I disorder, most recent episode (or current) mixed, moderate F31.62 [place] [address] [address] Aug, Chronic pain G89.29 [place] [address] [address] Aug, Generalized edema R60.1 [place] [address] [address] Aug, [place] [address] [address] Aug, [place] [address] [address] 14 Aug, 2017 Bipolar I disorder, most recent episode (or current) mixed, moderate F31.62 [place] [address] [place] [address] Aug, Bipolar I disorder, most recent episode (or current) mixed, moderate F31.62 [place] [address] [address] Aug, Chronic pain G89.[address] [address] Jul, Bipolar I disorder, most recent episode (or current) mixed, moderate F31.[address] [address] Jul, Bipolar I disorder, most recent episode (or current) mixed, moderate F31.62 and BMI 60.0-69.9, adult Z68.[address] [address] Jul, Bipolar I disorder, most recent episode (or current) mixed, moderate F31.[address] [address] Jul, Chronic pain G89.[address] [address] Jul, Bipolar I disorder, most recent episode (or current) mixed, moderate F31.62 [place] [address] [address] Jun, Polyneuropathy associated with underlyin g disease G63 and Diabetes E11.[address] [address] Jun, Bipolar I disorder, most recent episode (or current) mixed, moderate F31.[address] [address] Jun, Chronic pain G89.29 [place] [address] [address] 27 May, 2017 Bipolar I disorder, most recent episode (or current) mixed, moderate F31.62 [place] [address] [address] 21 May, 2017 Bipolar I disorder, most recent episode (or current) mixed, moderate F31.62 [place] [address] [address] 20 May, 2017 Diabetic polyneuropathy associated with type 2 diabetes mellitus E11.42 [place] [address] [address] 18 May, 2017 Bipolar I disorder, most recent episode (or current) mixed, moderate F31.62 [place] [address] [address] 13 May, 2017 Bipolar I disorder, most recent episode (or current) mixed, moderate F31.62 [place] [address] [address] 12 May, 2017 Chronic pain G89.29 [place] [address] [address] 30 Apr, 2017 Bipolar I disorder, most recent episode (or current) mixed, moderate F31.62 [place] [address] [address] Apr, [place] [address] [address] Apr, Chronic pain G89.29 and DM neuro manif t ype II E11.49 [place] [address] [address] Apr, [place] [address] [address] 16 Apr, 2017 Bipolar I disorder, most recent episode (or current) mixed, moderate F31.62 [place] [address] [address] Apr, Chronic pain G89.29 [facility] [address] [address] Apr, Iliotibial band syndrome, left M76.32 [facility] [address] [address] Apr, Bipolar I disorder, most recent episode (or current) mixed, moderate F31.62 [facility] [address] [address] Mar, Bipolar I disorder, most recent episode (or current) mixed, moderate F31.62 [facility] [address] [address] Mar, Bipolar I disorder, most recent episode (or current) mixed, moderate F31.62 [place] [address] [address] Mar, [facility] [address] [address] Mar, Bipolar I disorder, most recent episode (or current) mixed, moderate F31.62 [facility] [address] [address] Mar, Chronic pain G89.29 [facility] [address] [address] Mar, Bipolar I disorder, most recent episode (or current) mixed, moderate F31.62 [facility] [address] [address] Mar, Bipolar I disorder, most recent episode (or current) mixed, moderate F31.62 [facility] [address] [address] Mar, Acute pain of left knee M25.562 ; Left h ip pain M25.552 ; Generalized edema R60.1 and Tongue swelling R22.0 [facility] [address] [address] Mar, [place] [id number] [place] [address] Feb, Chronic pain G89.29 [facility] [address] [address] Feb, Diabetes E11.9 [facility] [id number] [place] [address] January, Chronic pain G89.29 [facility] [address] [address] January, [facility] [address] [address] January, Bipolar I disorder, most recent episode (or current) mixed, moderate F31.62 [place] [id number] [place] [address] Dec, Bipolar I disorder, most recent episode (or current) mixed, moderate F31.62 [place] [address] [address] Dec, Chronic pain G89.29 [facility] [address] [address] Dec, Bipolar I disorder, most recent episode (or current) mixed, moderate F31.62 [place] [id number] [place] [address] Dec, Diabetes E11.9 ; Essential hypertension I10 ; Chronic pain G89.29 and Morbid obesity E66.01 [facility] [id number] [place] [address] Dec, [facility] [address] [address] Dec, Bipolar I disorder, most recent episode (or current) mixed, moderate F31.62 [place] [address] [address] Dec, Bipolar I disorder, most recent episode (or current) mixed, moderate F31.62 [place] [address] [address] Nov, Chronic pain G89.29 [facility] [address] [address] Nov, Bipolar I disorder, most recent episode (or current) mixed, moderate F31.62 [facility] [address] [address] Nov, [facility] [address] [address] Nov, Bipolar I disorder, most recent episode (or current) mixed, moderate F31.62 [place] [address] [address] Nov, Bipolar I disorder, most recent episode (or current) mixed, moderate F31.62 [place] [address] [address] Nov, [facility] [address] [address] Nov, [facility] [address] [address] Nov, [facility] [address] [address] Oct, Chronic pain G89.29 [facility] [address] [address] Oct, Bipolar I disorder, most recent episode (or current) mixed, moderate F31.62 [facility] [address] [address] Oct, [facility] [address] [address] Oct, Chronic pain G89.29 ; Diabetes E11.9 ; A nxiety F41.9 and 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 [facility] [address] [address] Oct, [facility] [address] [address] Oct, Diabetes E11.9 [facility] [address] [address] Oct, Bipolar I disorder, most recent episode (or current) mixed, moderate F31.62 [facility] [address] [address] Sep, Chronic pain G89.29 [facility] [address] [address] Sep, Chronic pain G89.29 [place] [address] [address] Aug, Chronic pain G89.29 [place] [address] [address] Jul, [facility] [address] [address] Jul, Diabetes E11.9 [facility] [address] [address] Jul, Chronic pain G89.29 [facility] [address] [address] Jul, Bipolar I disorder, most recent episode (or current) mixed, moderate F31.62 [place] [address] [address] Jun, Bipolar I disorder, most recent episode (or current) mixed, moderate F31.62 [place] [address] [address] Jun, [place] [address] [address] Jun, Bipolar I disorder, most recent episode (or current) mixed, moderate F31.62 [place] [address] [address] May, Insomnia, unspecified type G47.00 [facility] [address] [address] May, Bipolar I disorder, most recent episode (or current) mixed, moderate F31.62 [facility] [address] [address] May, [place] [address] [address] May, Bipolar I disorder, most recent episode (or current) mixed, moderate F31.62 [place] [address] [address] May, Diabetes E11.9 and Essential hypertensio n I10 [place] [address] [address] Apr, Chronic pain G89.29 [place] [address] [address] Apr, Bipolar I disorder, most recent episode (or current) mixed, moderate F31.62 [place] [address] [address] Apr, [place] [address] [address] Apr, [place] [address] [address] Mar, Chronic pain G89.29 ; Headache, unspecif ied headache type R51 ; Neuropathy G62.9 ; Pain of right hip joint M25.551 and Essential hypertension I10 [place] [address] [address] Mar, Chronic pain G89.29 [place] [address] [address] Mar, Bipolar I disorder, most recent episode (or current) mixed, moderate F31.62 [place] [address] [address] Feb, Bipolar I disorder, most recent episode (or current) mixed, moderate F31.62 and Insomnia, unspecified type G47.00 [place] [address] [address] Feb, Chronic pain G89.29 [facility] [address] [address] Feb, Bipolar I disorder, most recent episode (or current) mixed, moderate F31.62 [place] [address] [address] January, Bipolar I disorder, most recent episode (or current) mixed, moderate F31.62 [place] [address] [address] January, Chronic pain G89.29 [place] [address] [address] January, Chronic pain G89.29 and Essential hypert ension I10 [place] [address] [address] January, Bipolar I disorder, most recent episode (or current) mixed, moderate F31.62 [place] [address] [address] Dec, [place] [address] [address] Dec, [place] [address] [address] Dec, [place] [address] [address] Dec, [place] [address] [address] Nov, Reactive airway disease J45.909 [place] [address] [address] Nov, [place] [address] [address] Nov, 2015 [place] [address] [address] Nov, [place] [address] [address] Nov, [place] [address] [address] Nov, Onychomycosis B35.1 ; Hammertoe M20.40 ; [place] or callus L84 and DM neuro manif type II E11.49 [place] [address] [address] Nov, Chronic pain G89.29 ; Leukocytosis D72.8 29 and Diabetes E11.9 [place] [address] [address] Nov, [place] [address] [address] Oct, Bronchitis J40 [place] [address] [address] Oct, [place] [address] [address] Oct, [place] [address] [address] Oct, Mastoiditis, unspecified laterality H70. 90 and Type 2 diabetes mellitus with complication E11.8 [place] [address] [address] Sep, [place] [address] [address] Sep, Dysuria R30.0 ; Cough R05 ; Benign prost atic hyperplasia with lower urinary tract symptoms, unspecified morphology N40.1 ; Hypokalemia E87.6 and Eustachian tube dysfunction, unspecified laterality H69.80 [place] [address] [address] Sep, Moderate mixed bipolar I disorder F31.62 [facility] [address] [address] Sep, Hypokalemia E87.6 [facility] [address] [address] Sep, [facility] [address] [address] Sep, Upper respiratory tract infection, unspe cified type J06.9 [facility] [address] [address] Aug, [facility] [address] [address] Aug, Dysuria R30.0 [facility] [address] [address] Aug, [facility] [address] [address] Jul, [facility] [address] [address] Jul, [facility] [address] [address] Jul, [facility] [address] [address] Jul, [facility] [address] [address] Jun, [facility] [address] [address] Jun, [facility] [address] [address] Jun, [facility] [address] [address] May, [facility] [address] [address] May, Bipolar I disorder, most recent episode (or current) mixed, moderate 296.62 [facility] [address] [address] May, [facility] [address] [address] [id number] May, Bipolar I disorder, most recent episode (or current) mixed, moderate 296.62 and Major depressive disorder, recurrent episode, severe, specified as with psychotic behavior 296.34 [facility] [address] [address] May, Bipolar I disorder, most recent episode (or current) mixed, moderate 296.62 [facility] [address] [address] May, [facility] [address] [address] Apr, [facility] [address] [address] Apr, [facility] [address] [address] Apr, Unspecified disorder of kidney and urete r 593.9 and Diabetes mellitus type 2, uncontrolled 250.02 [facility] [address] [address] Apr, [facility] [address] [address] Apr, [facility] [address] [address] Apr, [facility] [address] [address] Apr, [facility] [address] [address] Apr, Diabetes mellitus type II, uncontrolled 250.02 [facility] [address] [address] Apr, [facility] [address] [address] Mar, [facility] [address] [address] Mar, [facility] [address] [address] Mar, [facility] [address] [address] Mar, Major depressive disorder, recurrent epi sode, severe, specified as with psychotic behavior 296.34 and Bipolar I disorder, most recent episode (or current) mixed, moderate 296.62 [facility] [address] [address] Mar, Diabetes 250.00 ; Anuria 788.5 ; Nausea and vomiting 787.01 and Diarrhea 787.91 [facility] [address] [address] Mar, Diabetes 250.00 [facility] [address] [address] Mar, [facility] [address] [address] Mar, Diabetes 250.00 [facility] [address] [address] Mar, [facility] [address] [address] Mar, [facility] [address] [address] Mar, [facility] [address] [address] Mar, [facility] [address] [address] Mar, Bipolar I disorder, most recent episode (or current) mixed, moderate 296.62 and Major depressive disorder, recurrent episode, severe, specified as with psychotic behavior 296.34 [facility] [address] [address] Mar, Magnesium deficiency 275.2 ; Hypokalemia 276.8 ; Nausea & vomiting 787.01 and Diabetes mellitus type 2, uncontrolled 250.02 [place] [address] [address] Feb, [address] [address] Feb, Bipolar I disorder, most recent episode (or current) mixed, moderate 296.62 [place] [address] [address] Feb, Nausea and vomiting 787.01 ; Left elbow pain 719.42 ; Anuria 788.5 and Diabetes 250.[address] [address] Feb, [address] [address] Feb, Hypopotassemia 276.8 and Hypokalemia [address] [address] Feb, Hypopotassemia 276.8 and Hypokalemia [address] [address] Feb, Seborrheic keratoses 702.[address] [address] Feb, Hypopotassemia 276.8 and Low magnesium l evels 275.2 [place] [address] [address] January, [address] [address] January, [address] [address] January, [address] [address] January, Scalp lesion 709.9 [facility] [id number] [place] [address] January, [facility] [id number] [place] [address] Dec, Tear of medial cartilage or meniscus of knee, current 836.0 and 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 [facility] [id number] [place] [address] Dec, [facility] [id number] [place] [address] Dec, [facility] [id number] [place] [address] Dec, Squamous cell carcinoma, 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 42 [facility] [id number] [place] [address] 14 Dec, 2014 [facility] [id number] [place] [address] Dec, [facility] [id number] [place] [address] Nov, [facility] [id number] [place] [address] Nov, [facility] [id number] [place] [address] Nov, [facility] [id number] [place] [address] Nov, [facility] [id number] [place] [address] Nov, [facility] [id number] [place] [address] Nov, [facility] [id number] [place] [address] Nov, [facility] [id number] [place] [address] Nov, [facility] [id number] [place] [address] Nov, [facility] [address] [id number] [place] [address] Nov, [facility] [address] [id number] [place] [address] Nov, [facility] [address] [id number] [place] [address] Nov, [facility] [address] [id number] [place] [address] Oct, 2014 [facility] [address] [id number] [place] [address] Oct, 2014 [facility] [address] [id number] [place] [address] Oct, 2014 [facility] [address] [id number] [place] [address] Oct, 2014 [facility] [address] [id number] [place] [address] Oct, 2014 [facility] [address] [id number] [place] [address] Oct, [facility] [address] [id number] [place] [address] Oct, 2014 [facility] [address] [id number] [place] [address] Oct, [facility] [address] [id number] [place] [address] Oct, [facility] [address] [id number] [place] [address] Sep, [facility] [address] [id number] [place] [address] Sep, [facility] [address] [id number] [place] [address] Sep, [facility] [address] [id number] [place] [address] Sep, [facility] [address] [facility] [id number] [place] [address] Sep, [facility] [address] [id number] [place] [address] Sep, [facility] [address] [id number] [place] [address] Sep, [facility] [address] [id number] [place] [address] Sep, [facility] [address] [id number] [place] [address] Sep, [facility] [address] [id number] [place] [address] Sep, [facility] [address] [id number] [place] [address] Sep, [facility] [address] [id number] [place] [address] Sep, [facility] [address] [id number] [place] [address] Sep, [facility] [address] [id number] [place] [address] Sep, [facility] [address] [id number] [place] [address] Sep, [facility] [address] [id number] [place] [address] Sep, [facility] [address] [id number] [place] [address] Aug, [facility] [address] [id number] [place] [address] Aug, [facility] [address] [id number] [place] [address] Aug, [facility] [address] [id number] [place] [address] Aug, [facility] [address] [id number] [place] [address] Aug, [facility] [address] [facility] [id number] [place] [address] Aug, [facility] [address] [facility] [id number] [facility] [address] Aug[facility] [address] [id number] [place] [address] Aug, [facility] [address] [id number] [facility] [address] Aug, [facility] [address] [facility] [id number] [place] [address] Aug, [facility] [address] [id number] [place] [address] Aug, [facility] [address] [place] [id number] Aug, [facility] [address] [id number] [facility] [address] Aug, [facility] [address] [id number] [place] [address] Aug, [facility] [address] [id number] [place] [address] Aug, [facility] [address] [id number] [place] [address] Aug, [facility] [address] [id number] [place] [address] Aug, [facility] [address] [facility] [id number] [place] [address] Aug, [facility] [address] [facility] [id number] [place] [address] Aug, [facility] [address] [facility] [id number] [place] [address] Aug, [facility] [address] [id number] [place] [address] Aug, [facility] [address] [id number] [place] [address] 08 Aug, 2014 [facility] [address] [id number] [place] [address] Aug, [facility] [address] [id number] [place] [address] Aug, [facility] [address] [id number] [place] [address] Aug, [facility] [address] [id number] [place] [address] Aug, [facility] [address] [id number] [place] [address] Aug, [facility] [address] [id number] [place] [address] Aug, [facility] [address] [id number] [place] [address] Aug, [facility] [address] [id number] [place] [address] Aug, [facility] [address] [id number] [place] [address] Jul, [facility] [address] [id number] [place] [address] Jul, [facility] [address] [id number] [place] [address] Jul, [facility] [address] [id number] [place] [address] Jul, [facility] [address] [id number] [place] [address] Jul, [facility] [id number] [place] [address] Jul, [facility] [address] [id number] [place] [address] Jul, [facility] [address] [id number] [place] [address] Jul, [facility] [address] [id number] [place] [address] Jul, [facility] [address] [id number] [place] [address] Jul, [facility] [address] [id number] [place] [address] Jun, [facility] [address] [id number] [place] [address] Jun, [facility] [address] [id number] [place] [address] Jun, [facility] [address] [id number] [place] [address] Jun, [facility] [address] [id number] [place] [address] Jun, [facility] [address] [id number] [place] [address] Jun, [facility] [address] [id number] [place] [address] Jun, [facility] [place] [facility] [address] [id number] [place] [address] Jun, [facility] [place] [facility] [address] [id number] [place] [address] Jun, [facility] [place] [facility] [address] [id number] [place] [address] Jun, [facility] [place] [facility] [address] [id number] [place] [address] 29 May, 2014 [facility] [place] [facility] [address] [id number] [place] [address] 29 Sep, 2013 [facility] [place] [facility] [address] [id number] [place] [address] 26 Sep, 2013 [facility] [place] [facility] [address] [id number] [place] [address] 26 Sep, 2013 [facility] [place] [facility] [address] [id number] [place] [address] 17 Sep, 2013 [facility] [place] [facility] [address] [id number] [facility] [address] 17 May, 2013 [facility] [place] [facility] [address] [facility] [id number] [facility] [address] 15 May, 2013 [facility] [place] [facility] [address] [facility] [id number] [facility] [address] 15 May, 2013 [facility] [place] [facility] [address] [id number] [place] [address] 15 May, 2013 [facility] [place] [facility] [address] [facility] [id number] [facility] [address] 15 May, 2013 [facility] [place] [facility] [address] [id number] [place] [address] 10 May, 2013 [facility] [place] [facility] [address] [id number] [place] [address] 10 May, 2013 [facility] [place] [facility] [address] [id number] [facility] [address] 09 May, 2013 [facility] [place] [facility] [address] [facility] [id number] [facility] [address] 09 May, 2013 [facility] [place] [facility] [address] [id number] [facility] [address] 04 May, 2013 [facility] [place] [facility] [address] [facility] [id number] [place] [address] 04 May, 2013 [facility] [place] [facility] [address] [id number] [place] [address] Apr, 2013 [facility] [place] [facility] [address] [facility] [id number] [place] [address] Apr, 2013 [facility] [place] [facility] [address] [id number] [place] [address] Apr, 2013 [facility] [place] [facility] [address] [facility] [id number] [place] [address] Apr, 2013 [facility] [place] [facility] [address] [id number] [place] [address] Apr, 2013 [facility] [place] [facility] [address] [id number] [place] [address] Apr, [facility] [place] [facility] [address] [id number] [place] [address] Apr, [facility] [place] [facility] [address] [facility] [id number] [facility] [address] Apr, [facility] [place] [facility] [address] [id number] [place] [address] Apr, [facility] [place] [facility] [address] [id number] [place] [address] Apr, [facility] [place] [facility] [address] [id number] [place] [address] Apr, [facility] [place] [facility] [address] [id number] [place] [address] Apr, [facility] [place] [facility] [address] [id number] [place] [address] Apr, [facility] [place] [facility] [address] [id number] [place] [address] Apr, [facility] [place] [facility] [address] [id number] [place] [address] Apr, [facility] [place] [facility] [address] [id number] [place] [address] Mar, [facility] [place] [facility] [address] [id number] [place] [address] Mar, [facility] [place] [facility] [address] [id number] [place] [address] Mar, [facility] [place] [facility] [address] [id number] [place] [address] Mar, [facility] [place] [facility] [address] [id number] [place] [address] Mar, [facility] [place] [facility] [address] [id number] [place] [address] Mar, [facility] [place] [facility] [address] [id number] [place] [address] Mar, [facility] [place] [facility] [address] [facility] [id number] [place] [address] Mar, 2013 [facility] [place] [facility] [address] [id number] [place] [address] Mar, 2013 [facility] [place] [facility] [address] [id number] [place] [address] Mar, 2013 [facility] [place] [facility] [address] [id number] [place] [address] Mar, 2013 [facility] [place] [facility] [address] [facility] [id number] [place] [address] Mar, 2013 [facility] [place] [facility] [address] [id number] [place] [address] Mar, 2013 [facility] [place] [facility] [address] [id number] [place] [address] Mar, 2013 [facility] [place] [facility] [address] [id number] [place] [address] Mar, 2013 [facility] [place] [facility] [address] [id number] [place] [address] Mar, 2013 [facility] [place] [facility] [address] [id number] [place] [address] Mar, 2013 [facility] [place] [facility] [address] [id number] [place] [address] Mar, 2013 [facility] [place] [facility] [address] [id number] [place] [address] Feb, [facility] [place] [facility] [address] [id number] [place] [address] Feb, [facility] [place] [facility] [address] [facility] [id number] [place] [address] Feb, [facility] [place] [facility] [address] [id number] [place] [address] Feb, [facility] [place] [facility] [address] [id number] [place] [address] Feb, [facility] [place] [facility] [address] [id number] [place] [address] Feb, [facility] [place] [facility] [address] [facility] [id number] [facility] [address] Feb, [facility] [place] [facility] [address] [facility] [id number] [place] [address] Feb, [facility] [place] [facility] [address] [facility] [id number] [place] [address] Feb, [facility] [place] [facility] [address] [facility] [id number] [place] [address] Feb, [facility] [place] [facility] [address] [facility] [id number] [place] [address] Feb, [facility] [place] [facility] [address] [facility] [id number] [facility] [address] Feb, [facility] [place] [facility] [address] [id number] [place] [address] Feb, [facility] [place] [facility] [address] [id number] [place] [address] Feb, [facility] [place] [facility] [address] [facility] [id number] [place] [address] January, [facility] [place] [facility] [address] [id number] [place] [address] January, [facility] [place] [facility] [address] [id number] [place] [address] January, [facility] [place] [facility] [address] [id number] [place] [address] January, [facility] [place] [facility] [address] [facility] [id number] [place] [address] January, [facility] [place] [facility] [address] [facility] [id number] [place] [address] January, [facility] [place] [facility] [address] [facility] [id number] [place] [address] January, [facility] [place] [facility] [address] [id number] [place] [address] January, [facility] [place] [facility] [address] [id number] [place] [address] January, [facility] [place] [facility] [address] [id number] [place] [address] January, [facility] [place] [facility] [address] [facility] [id number] [place] [address] January, [facility] [place] [facility] [address] [id number] [place] [address] January, [facility] [place] [facility] [address] [id number] [place] [address] January, [facility] [place] [facility] [address] [id number] [place] [address] January, [facility] [place] [facility] [address] [id number] [place] [address] Dec, [facility] [place] [facility] [address] [id number] [place] [address] Dec, [facility] [place] [facility] [address] [id number] [place] [address] Dec, [facility] [place] [facility] [address] [id number] [place] [address] Dec, [facility] [place] [facility] [address] [id number] [place] [address] Dec, [facility] [place] [facility] [address] [id number] [place] [address] Dec, [facility] [place] [facility] [address] [id number] [place] [address] Dec, [facility] [place] [facility] [address] [id number] [place] [address] Dec, [facility] [place] [facility] [address] [id number] [place] [address] Dec, [facility] [place] [facility] [address] [id number] [place] [address] Dec, [facility] [place] [facility] [address] [id number] [place] [address] Nov, [facility] [place] [facility] [address] [id number] [place] [address] Nov, [facility] [place] [facility] [address] [id number] [place] [address] Nov, [facility] [place] [facility] [address] [id number] [place] [address] Nov, [facility] [place] [facility] [address] [id number] [place] [address] Nov, [facility] [place] [facility] [address] [id number] [place] [address] Nov, [facility] [place] [facility] [address] [id number] [place] [address] Nov, [facility] [place] [facility] [address] [id number] [place] [address] Nov, [facility] [place] [facility] [address] [id number] [place] [address] Nov, [facility] [place] [facility] [address] [id number] [place] [address] Nov, [facility] [place] [facility] [address] [id number] [place] [address] Oct, [facility] [place] [facility] [address] [id number] [place] [address] Oct, [facility] [place] [facility] [address] [id number] [place] [address] Oct, [facility] [place] [facility] [address] [id number] [place] [address] Oct, [facility] [place] [facility] [address] [id number] [place] [address] Oct, [facility] [place] [facility] [address] [id number] [place] [address] Oct, [facility] [place] [facility] [address] [id number] [place] [address] 14 Oct, 2013 [facility] [place] [facility] [address] [id number] [place] [address] 14 Oct, 2013 [facility] [place] [facility] [address] [facility] [id number] [place] [address] Oct, [facility] [place] [facility] [address] [id number] [place] [address] Oct, [facility] [place] [facility] [address] [id number] [place] [address] Oct, [facility] [place] [facility] [address] [id number] [place] [address] Oct, [facility] [place] [facility] [address] [id number] [place] [address] Oct, [facility] [place] [facility] [address] [id number] [place] [address] Oct, [facility] [place] [facility] [address] [id number] [place] [address] Sep, [facility] [place] [facility] [address] [id number] [place] [address] Sep, [facility] [place] [facility] [address] [id number] [place] [address] Sep, [facility] [place] [facility] [address] [id number] [place] [address] Sep, [facility] [place] [facility] [address] [id number] [place] [address] Sep, [facility] [place] [facility] [address] [id number] [place] [address] Sep, [facility] [place] [facility] [address] [id number] [place] [address] Sep, [facility] [place] [facility] [address] [id number] [place] [address] Sep, [facility] [place] [facility] [address] [id number] [place] [address] Sep, [facility] [place] [facility] [address] [id number] [place] [address] Sep, [facility] [place] [facility] [address] [id number] [place] [address] Aug, [facility] [place] [facility] [address] [id number] [place] [address] Aug, [facility] [place] [facility] [address] [id number] [place] [address] Jul, [facility] [place] [facility] [address] [id number] [place] [address] Jul, [facility] [place] [facility] [address] [id number] [place] [address] Jul, [facility] [place] [facility] [address] [id number] [place] [address] Jul, [facility] [place] [facility] [address] [id number] [place] [address] Jul, [facility] [place] [facility] [address] [id number] [place] [address] Jul, [facility] [place] [facility] [address] [id number] [place] [address] Jul, [facility] [place] [facility] [address] [id number] [place] [address] Jul, [facility] [place] [facility] [address] [id number] [place] [address] Jul, [facility] [place] [facility] [address] [id number] [place] [address] Jul, [facility] [place] [facility] [address] [id number] [place] [address] Jul, [facility] [place] [facility] [address] [id number] [place] [address] Jul, [facility] [place] [facility] [address] [id number] [place] [address] Jul, [facility] [place] [facility] [address] [id number] [place] [address] Jul, [facility] [place] [facility] [address] [id number] [place] [address] Jul, [facility] [place] [facility] [address] [id number] [place] [address] Jul, [facility] [place] [facility] [address] [id number] [place] [address] Jul, [facility] [place] [facility] [address] [id number] [place] [address] Jul, [facility] [place] [facility] [address] [id number] [place] [address] Jul, 2012 [facility] [place] [facility] [address] [id number] [place] [address] Jun, 2012 [facility] [place] [facility] [address] [id number] [place] [address] Jun, 2012 [facility] [place] [facility] [address] [id number] [place] [address] Jun, 2012 [facility] [place] [facility] [address] [id number] [place] [address] Jun, 2012 [facility] [place] [facility] [address] [id number] [place] [address] Jun, [facility] [place] [facility] [address] [id number] [place] [address] Jun, 2012 [facility] [place] [facility] [address] [id number] [place] [address] Jun, 2012 [facility] [place] [facility] [address] [id number] [place] [address] Jun, 2012 [facility] [place] [facility] [address] [id number] [place] [address] Jun, 2012 [facility] [place] [facility] [address] [id number] [place] [address] Jun, 2012 [facility] [place] [facility] [address] [id number] [place] [address] Jun, 2012 [facility] [place] [facility] [address] [id number] [place] [address] May, 2012 [facility] [place] [facility] [address] [id number] [place] [address] 25 May, 2012 [facility] [place] [facility] [address] [id number] [place] [address] 19 May, 2012 [facility] [place] [facility] [address] [facility] [id number] [place] [address] 17 May, 2012 [facility] [place] [facility] [address] [id number] [place] [address] 11 May, 2012 [facility] [place] [facility] [address] [id number] [place] [address] 10 May, 2012 [facility] [place] [facility] [address] [id number] [place] [address] 09 May, 2012 [facility] [place] [facility] [address] [id number] [place] [address] 05 May, 2012 [facility] [place] [facility] [address] [id number] [place] [address] Apr, [facility] [place] [facility] [address] [id number] [place] [address] Apr, [facility] [place] [facility] [address] [id number] [place] [address] Apr, [facility] [place] [facility] [address] [id number] [place] [address] Apr, [facility] [place] [facility] [address] [id number] [place] [address] Apr, [facility] [place] [facility] [address] [id number] [place] [address] Mar, [facility] [place] [facility] [address] [id number] [place] [address] Mar, [facility] [place] [facility] [address] [id number] [place] [address] Mar, [facility] [place] [facility] [address] [id number] [place] [address] Mar, [facility] [place] [facility] [address] [id number] [place] [address] Mar, [facility] [place] [facility] [address] [id number] [place] [address] Mar, [facility] [place] [facility] [address] [id number] [place] [address] Mar, [facility] [place] [facility] [address] [id number] [place] [address] Mar, [facility] [place] [facility] [address] [id number] [place] [address] Feb, [facility] [place] [facility] [address] [id number] [place] [address] Feb, [facility] [place] [facility] [address] [id number] [place] [address] January, [facility] [place] [facility] [address] [id number] [place] [address] January, [facility] [address] [id number] [place] [address] Dec, [facility] [place] [facility] [address] [id number] [place] [address] Dec, [facility] [place] [facility] [address] [id number] [place] [address] Nov, [facility] [place] [facility] [address] [id number] [place] [address] Nov, [facility] [place] [facility] [address] [id number] [place] [address] Nov, [facility] [place] [facility] [address] [id number] [place] [address] Nov, [facility] [place] [facility] [address] [id number] [place] [address] Oct, [facility] [place] [facility] [address] [id number] [place] [address] Oct, [facility] [place] [facility] [address] [id number] [place] [address] Oct, [facility] [place] [facility] [address] [id number] [place] [address] 26 Oct, 2012 [facility] [place] [facility] [address] [id number] [place] [address] 16 Oct, 2012 [facility] [place] [facility] [address] [id number] [place] [address] 14 Oct, 2012 [facility] [place] [facility] [address] [id number] [place] [address] 08 Oct, 2012 [facility] [place] [facility] [address] [id number] [place] [address] 07 Oct, 2012 [facility] [address] [id number] [place] [address] Oct, [facility] [address] [id number] [place] [address] Sep, [facility] [address] [id number] [place] [address] Sep, [facility] [address] [id number] [place] [address] Sep, [facility] [address] [id number] [place] [address] Sep, [facility] [address] [id number] [place] [address] Sep, [facility] [address] [id number] [place] [address] Sep, [facility] [address] [id number] [place] [address] Sep, [facility] [address] [id number] [place] [address] Sep, [facility] [id number] [place] [address] Aug, [facility] [address] [id number] [place] [address] Aug, [facility] [address] [id number] [place] [address] Aug, [facility] [address] [id number] [place] [address] Aug, [facility] [address] [id number] [place] [address] Aug, [facility] [address] [id number] [place] [address] Aug, [facility] [address] [id number] [place] [address] Aug, [facility] [address] [id number] [place] [address] Aug, [facility] [address] [id number] [place] [address] Jul, [facility] [address] [id number] [place] [address] Jul, [facility] [address] [id number] [place] [address] Jul, [facility] [address] [id number] [place] [address] Jul, [facility] [address] [id number] [place] [address] Jul, [facility] [address] [id number] [place] [address] Jul, [facility] [address] [id number] [place] [address] Jun, [facility] [address] [id number] [place] [address] Jun, [facility] [address] [id number] [place] [address] Jun, [facility] [address] [id number] [place] [address] Jun, [facility] [address] [id number] [place] [address] Jun, [facility] [address] [id number] [place] [address] Jun, [facility] [address] [facility] [id number] [place] [address] Jun, [facility] [address] [id number] [place] [address] Jun, [facility] [address] [id number] [place] [address] Jun, [facility] [address] [id number] [place] [address] May, [facility] [address] [facility] [id number] [place] [address] 24 May, 2012 [facility] [address] [id number] [place] [address] May, [facility] [address] [id number] [place] [address] Apr, [facility] [address] [id number] [place] [address] Apr, [facility] [address] [id number] [place] [address] Apr, [facility] [address] [id number] [place] [address] Apr, [facility] [address] [id number] [place] [address] Apr, [facility] [address] [id number] [place] [address] Apr, [facility] [address] [id number] [place] [address] Mar, [facility] [address] [id number] [place] [address] Mar, [facility] [address] [id number] [place] [address] Mar, [facility] [address] [id number] [place] [address] Mar, [facility] [address] [id number] [place] [address] 29 Feb, 2012 [facility] [address] [id number] [place] [address] Feb, [facility] [address] [id number] [place] [address] Feb, [facility] [address] [id number] [place] [address] Feb, [facility] [address] [id number] [place] [address] Feb, [facility] [address] [id number] [place] [address] January, [facility] [address] [id number] [place] [address] January, [facility] [address] [id number] [place] [address] January, [facility] [address] [id number] [place] [address] January, [facility] [address] [id number] [place] [address] January, [facility] [address] [id number] [place] [address] January, [facility] [address] [id number] [place] [address] Dec, [facility] [address] [id number] [place] [address] Dec, [facility] [address] [id number] [place] [address] Dec, [facility] [address] [id number] [place] [address] Dec, [facility] [address] [id number] [place] [address] Dec, [facility] [address] [id number] [place] [address] Nov, [facility] [address] [id number] [place] [address] 14 Nov, 2011 [facility] [address] [id number] [place] [address] 12 Nov, 2011 [facility] [address] [id number] [place] [address] 07 Nov, 2011 [facility] [address] [id number] [place] [address] 29 Oct, 2011 [facility] [address] [id number] [place] [address] 28 Oct, 2011 [facility] [address] [id number] [place] [address] 24 Oct, 2011 [facility] [address] [id number] [place] [address] 13 Oct, 2011 [facility] [id number] [place] [address] 08 Oct, 2011 [facility] [address] [id number] [place] [address] Sep, [facility] [address] [id number] [place] [address] Sep, [facility] [address] [id number] [place] [address] Sep, [facility] [address] [id number] [place] [address] Sep, [facility] [address] [id number] [place] [address] Sep, [facility] [address] [id number] [place] [address] Sep, [facility] [address] [id number] [place] [address] Aug, [facility] [address] [id number] [place] [address] Aug, [facility] [address] [id number] [place] [address] Aug, [facility] [address] [id number] [place] [address] Jul, [facility] [address] [id number] [place] [address] Jul, [facility] [address] [id number] [place] [address] Jul, [facility] [address] [id number] [place] [address] Jul, [facility] [address] [id number] [place] [address] Jun, [facility] [address] [id number] [place] [address] Jun, [facility] [address] [id number] [place] [address] Jun, [facility] [address] [id number] [place] [address] Jun, [facility] [address] [id number] [place] [address] Jun, [facility] [address] [id number] [place] [address] Jun, [facility] [address] [id number] [place] [address] Mar, [facility] [address] [id number] [place] [address] Dec, [facility] [address] [id number] [place] [address] Dec, [facility] [address] [id number] [place] [address] Nov, [facility] [address] [id number] [place] [address] 16 Nov, 2010 [facility] [address] [id number] [place] [address] Sep, [facility] [address] [id number] [place] [address] 31 Aug, 2010 [facility] [address] [id number] [place] [address] 29 Aug, 2010 [facility] [address] [id number] [place] [address] 29 Aug, 2010 [facility] [address] [id number] [place] [address] 29 Aug, 2010 [facility] [address] [id number] [place] [address] 27 Aug, 2010 [facility] [address] [id number] [place] [address] 14 Aug, 2010 [facility] [address] [id number] [place] [address] 08 Aug, 2010 [facility] [address] [id number] [place] [address] 08 Aug, 2010 [facility] [address] [id number] [place] [address] 07 Aug, 2010 [facility] [address] [id number] [place] [address] 06 Aug, 2010 [facility] [address] [id number] [place] [address] 06 Aug, 2010 [facility] [address] [id number] [place] [address] Aug, [facility] [address] [id number] [place] [address] 30 Jul, 2010 [facility] [address] [id number] [place] [address] 30 Jul, 2010 [facility] [address] [id number] [place] [address] 30 Jul, 2010 [facility] [address] [id number] [place] [address] 17 Jul, 2010 [facility] [address] [id number] [place] [address] 08 Jul, 2010 [facility] [address] [id number] [place] [address] Jul, [facility] [address] [id number] [place] [address] Jun, [facility] [address] [id number] [place] [address] Jun, [facility] [address] [id number] [place] [address] Jun, [facility] [address] [id number] [place] [address] Jun, [facility] [address] [id number] [place] [address] Apr, [facility] [address] [id number] [place] [address] Mar, [facility] [address] [id number] [place] [address] Feb, [facility] [address] [id number] [place] [address] January, [facility] [address] [id number] [place] [address] 15 Dec, 2009 [facility] [address] [id number] [place] [address] Nov, [facility] [address] [id number] [place] [address] Aug, [facility] [address] [id number] [place] [address] Aug, [facility] [address] [id number] [place] [address] Aug, [facility] [address] [id number] [place] [address] Jul, [facility] [address] [id number] [place] [address] Jul, [facility] [id number] [place] [address] Jul, [facility] [address] [id number] [place] [address] Jun, [facility] [address] [id number] [place] [address] Jun, [facility] [id number] [place] [address] Jun, [facility] [id number] [place] [address] Jun, [facility] [address] [address] Jun, [facility] [id number] [place] [address] Jun, [facility] [id number] [place] [address] Apr, [facility] [id number] [place] [address] Apr, [facility] [id number] [place] [address] Feb, [facility] [id number] [place] [address] January, [facility] [address] [id number] [place] [address] Dec, IMMUNIZATIONS No Known Immunizations SOCIAL HISTORY [...] Medical History skin cancer-basal cell R christian (removed ) Medical History Arthritis Medical History [...] colonoscopy 2009 ([facility]), 2013 ([facility] ) Surgical History heart cath: CAD w/ [...] History inability to urinate 09/16/15 Hospitalization History [facility] inpatient mental health ea rly 2000's Hospitalization History hyperkalemia 10/2017 Hospitalization History fluid in lung
--- OUTSIDE RECORDS SUMMARY | 2020-03-01 17:02 | XMS REPORT ---
Author Author Michele WASHBURN Organization [facility] Address [address] [place] [address] Care Team Providers Care Supervisory Examiner Name Role Phone NOEMI WASHBURN Unavailable PROBLEMS Type Condition ICD9-CM Code KIO70-DS Code Onset Dates Condition S tatus SNOMED Code Problem DM neuro manif type II E11.49 Active 34828505 Problem Chronic pain G89.29 Active 1255359 1 Problem Diabetes E11.9 Active 34744266 Problem Reactive airway disease J45.909 Active 672903845121 Problem Leukocytosis D72.829 Active 2402731 06 Problem Insomnia, unspecified type G47.00 Act sharon 717529548 Problem Bipolar I disorder, most recent episode (or curr ent) mixed, moderate F31.62 Active 48862527 Problem Primary osteoarthritis of right knee M17.11 Active 280364150225557 Problem Cough R05 Active 62192865 Problem Pure hypercholesterolemia E78.00 Acti ve 393935069 Problem Dysuria R30.0 Active 96273025 Problem Benign prostatic hyperplasia with lower urinary tract symptoms, unspecified morphology N40.1 Active 52678 6007 Problem Eustachian tube dysfunction, unspecified laterality H69.80 Active 63940425 Problem Polyneuropathy associated with underlying disease G63 Active 925373101 Problem Diabetic polyneuropathy associated with type 2 d iabetes mellitus E11.42 Active 88197819 Problem Anemia of chronic illness D63.8 Acti ve 691499750 Problem Chronic lymphocytic leukemia C91.10 A ctive 18236380 Problem Bilateral primary osteoarthritis of knee M17.0 Active 255395552 Problem 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 Active 881413309 Problem Eye exam abnormal R93.8 Active 16 4283619 Problem Retinal edema H35.81 Active 232222 6 Problem Lymphocytosis D72.820 Active 141941 09 Problem Bipolar disorder, in partial remission, most rec ent episode depressed F31.75 Active 28603442 Problem Hypokalemia E87.6 Active 10222820 Problem Falling R29.6 Active 508221300 Problem Pressure ulcer of other site, stage 3 L89.893 Active 883900736 Problem Other iron deficiency anemia D50.8 A ctive 39063282 Problem Mild cognitive impairment G31.84 Acti ve 312462092 Problem Skin cancer C44.90 Active 89224800 7 Problem assisted (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 Z79.4 Active 620563314 Problem Morbid obesity E66.01 Active 22896 6002 Problem Mood disorder F39 Active 432620 05 Problem Anxiety F41.9 Active 95106396 Problem Essential hypertension I10 Active 15996232 Problem Bipolar disorder F31.9 Active 137 71986 Problem Chronic diastolic (congestive) heart failure I50.3 2 Active 952356455 Problem Psychophysiological insomnia F51.04 A ctive 096626677 Problem Type 2 diabetes mellitus with diabetic neuropathy, uns pecified E11.40 Active 81826537 ALLERGIES No Information ENCOUNTERS Encounter Location Date Diagnosis [place] [address] [address] Oct, [facility] [address] [address] Sep, [place] [address] [address] Sep, [facility] [address] [address] Sep, [place] [address] [address] Sep, Mood disorder F39 [facility] [address] [address] Sep, [facility] [address] [address] Sep, Mood disorder F39 [facility] [address] [address] Sep, [facility] [address] [address] Aug, Mood disorder [address] [place] [address] [address] [place] [id number] [place] [address] Aug, [facility] [address] [address] Aug, [facility] [address] [address] Aug, [facility] [address] [address] Aug, [facility] [address] [address] Aug, [facility] [address] [address] Aug, [facility] [address] [address] Aug, [facility] [address] [address] Aug, Essential hypertension I10 [facility] [address] [address] Aug, Bipolar disorder, in partial remission, most recent episode depressed F31.75 and Mild cognitive impairment G31.84 [facility] [address] [address] Aug, Mood disorder F39 [facility] [address] [address] Aug, [facility] [address] [address] Aug, Bipolar disorder, in partial remission, most recent episode depressed F31.75 and Mild cognitive impairment G31.84 [facility] [address] [address] Jul, Bipolar disorder, in partial remission, most recent episode depressed F31.75 and Mild cognitive impairment G31.84 [facility] [address] [address] Jul, Psychophysiological insomnia F51.04 [facility] [address] [address] Jul, [facility] [address] [address] Jul, [facility] [address] [address] Jul, [facility] [address] [address] Jul, [facility] [address] [address] Jul, [facility] [address] [address] Jul, [facility] [address] [address] Jul, Bipolar disorder, in partial remission, most recent episode depressed F31.75 and Mild cognitive impairment G31.84 [place] [address] [address] Jul, Chronic pain G89.29 ; Diabetes E11.9 ; E ssential hypertension I10 ; Ill feeling R68.89 ; Local infection of the skin and subcutaneous tissue, unspecified L08.9 and Other injury of unspecified body region, initial encounter T14.8XXA [place] [address] [address] Jun, Bipolar disorder, in partial remission, most recent episode depressed F31.75 and Mild cognitive impairment G31.84 [facility] [address] [address] Jun, [facility] [address] [address] Jun, Bipolar disorder, in partial remission, most recent episode depressed F31.75 and Mild cognitive impairment G31.84 [facility] [address] [address] Jun, Psychophysiological insomnia F51.04 [place] [address] [address] Jun, Psychophysiological insomnia F51.04 ; Ch ronic pain G89.29 ; Bipolar I disorder, most recent episode (or current) mixed, moderate F31.62 ; 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 ; Polyneuropathy associated with underlying disease G63 ; Type 2 diabetes mellitus with diabetic neuropathy, unspecified E11.40 ; assisted (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 Z79.4 and Hyperglycemia R73.9 [place] [address] [address] Jun, Bipolar disorder, in partial remission, most recent episode depressed F31.75 and Mild cognitive impairment G31.84 [place] [address] [address] Jun, [address] [address] Jun, Bipolar disorder F31.9 [place] [address] [address] May, Bipolar disorder, in partial remission, most recent episode depressed F31.75 and Mild cognitive impairment G31.84 [place] [address] [address] May, [address] [address] Apr, Chronic pain G89.29 and Bipolar disorder F31.9 [place] [address] [address] Mar, Bipolar disorder F31.9 and Chronic pain G89.[address] [address] Feb, Bipolar disorder F31.9 [place] [address] [address] Feb, Cellulitis of right upper extremity L03. 113 and Skin abrasion T14.8XXA [place] [address] [address] Feb, Bipolar disorder, in partial remission, most recent episode depressed F31.75 and Mild cognitive impairment G31.84 [facility] [address] [address] Feb, Chronic pain G89.29 [facility] [address] [address] Feb, Bipolar disorder, in partial remission, most recent episode depressed F31.75 and Mild cognitive impairment G31.84 [facility] [address] [address] January, Bipolar disorder, in partial remission, most recent episode depressed F31.75 and Mild cognitive impairment G31.84 [facility] [address] [address] January, Chronic pain G89.29 and Bipolar disorder F31.9 [facility] [address] [address] January, Bipolar disorder, in partial remission, most recent episode depressed F31.75 and Mild cognitive impairment G31.84 [facility] [address] [address] Dec, [facility] [address] [address] Dec, Chronic pain G89.29 and Bipolar disorder F31.9 [facility] [address] [address] Dec, Edema of both lower extremities R60.0 [facility] [address] [address] Dec, Bipolar disorder F31.9 [facility] [address] [address] Dec, Bipolar disorder, in partial remission, most recent episode depressed F31.75 and Mild cognitive impairment G31.84 [facility] [address] [address] Nov, [place] [address] [address] Nov, Chronic pain G89.[address] [address] Nov, Bipolar disorder, in partial remission, most recent episode depressed F31.75 and Mild cognitive impairment G31.[address] [address] Nov, Bipolar disorder F31.[address] [address] Nov, Encounter for Medicare annual wellness e [...] unspecified morphology N40.1 and Essential hypertension I10 [address] [address] Oct, Chronic pain G89.[address] [address] Oct, Diabetes E11.[address] [address] Oct, Bipolar I disorder, most recent episode (or current) mixed, moderate F31.62 and Mild cognitive impairment G31.[address] [address] Oct, Bipolar I disorder, most recent episode (or current) mixed, moderate F31.62 and Mild cognitive impairment G31.[address] [address] Sep, Bipolar I disorder, most recent episode (or current) mixed, moderate F31.62 and Mild cognitive impairment G31.84 [place] [address] [address] Sep, [place] [address] [address] Sep, Diabetes E11.9 ; Hypoxia R09.02 ; Hyperg lycemia R73.9 ; Therapeutic drug monitoring Z51.81 ; BMI 50.0-59.9, adult Z68.43 and Skin cancer C44.90 [place] [address] [address] Sep, Chronic pain G89.29 [place] [address] [address] Sep, Bipolar I disorder, most recent episode (or current) mixed, moderate F31.62 [place] [address] [address] Sep, [place] [address] [address] Sep, [place] [address] [address] Aug, Chronic pain G89.29 [place] [address] [address] Aug, Bipolar I disorder, most recent episode (or current) mixed, moderate F31.62 [place] [address] [address] Aug, Bipolar I disorder, most recent episode (or current) mixed, moderate F31.62 and Mild cognitive impairment G31.84 [place] [address] [address] Jul, [place] [address] [address] Jul, Chronic pain G89.29 [facility] [address] [place] [id number] [place] [address] Jul, Bipolar I disorder, most recent episode (or current) mixed, moderate F31.62 and Mild cognitive impairment G31.84 [facility] [address] [address] Jul, Bipolar I disorder, most recent episode (or current) mixed, moderate F31.62 and MCI (mild cognitive impairment) G31.84 [place] [address] [address] Jul, [place] [address] [address] Jul, [place] [address] [address] Jul, Bipolar I disorder, most recent episode (or current) mixed, moderate F31.62 [place] [address] [place] [id number] [place] [address] Jul, Chronic pain G89.29 [place] [address] [address] Jun, Bipolar I disorder, most recent episode (or current) mixed, moderate F31.62 [place] [address] [place] [id number] [place] [address] Jun, Pre-procedure lab exam Z01.812 [place] [id number] [place] [address] Jun, [place] [address] [id number] [place] [id number] Jun, [address] [address] Jun, [place] [address] [place] [id number] [place] [address] Jun, Forgetfulness R68.89 ; Pre-syncope R55 ; Localized edema R60.0 ; Other iron deficiency anemia D50.8 and BMI 50.0-59.9, adult Z68.43 [place] [address] [address] Jun, Chronic pain G89.29 [place] [address] [address] Jun, Chronic pain G89.29 [place] [address] [address] Jun, Bipolar I disorder, most recent episode (or current) mixed, moderate F31.62 [place] [address] [address] May, Chronic pain G89.29 [place] [address] [address] Apr, [place] [address] [address] Apr, Chronic pain G89.29 [place] [address] [address] Apr, Primary osteoarthritis of right knee M17 .11 [place] [address] [address] Mar, [place] [address] [address] Mar, BMI 50.0-59.9, adult Z68.43 and Bipolar disorder, in partial remission, most recent episode depressed F31.75 [place] [address] [address] Mar, Diabetes E11.9 ; Pure hypercholesterolem ia E78.00 ; Essential hypertension I10 ; Nausea with vomiting, unspecified R11.2 and Headache, unspecified headache type R51 [place] [address] [address] Mar, Bipolar I disorder, most recent episode (or current) mixed, moderate F31.62 [place] [address] [address] Mar, Bipolar I disorder, most recent episode (or current) mixed, moderate F31.62 [place] [address] [address] Mar, Chronic pain G89.29 [place] [address] [address] Mar, Bipolar I disorder, most recent episode (or current) mixed, moderate F31.62 [place] [address] [address] Feb, Bipolar I disorder, most recent episode (or current) mixed, moderate F31.62 [place] [address] [address] Feb, Chronic pain G89.29 [place] [address] [address] Feb, Decubitus ulcer of right foot, stage 3 L 89.893 and BMI 50.0-59.9, adult Z68.43 [place] [address] [address] Feb, Bipolar I disorder, most recent episode (or current) mixed, moderate F31.62 [place] [address] [address] Feb, [place] [address] [address] January, [place] [address] [address] January, Chronic pain G89.29 [place] [address] [address] January, Bipolar I disorder, most recent episode (or current) mixed, moderate F31.62 [place] [address] [address] January, Bipolar I disorder, most recent episode (or current) mixed, moderate F31.62 [place] [address] [address] Dec, Bipolar I disorder, most recent episode (or current) mixed, moderate F31.62 and BMI 50.0-59.9, adult Z68.43 [place] [address] [address] Dec, Bipolar I disorder, most recent episode (or current) mixed, moderate F31.62 [place] [address] [address] Dec, Chronic pain G89.[address] [address] Dec, DM neuro manif type II E11.49 ; Right fl ank pain R10.9 ; 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 ; Encounter for medication monitoring Z51.81 and BMI 50.0-59.9, adult Z68.43 [place] [address] [address] Dec, Bipolar I disorder, most recent episode (or current) mixed, moderate F31.62 [place] [address] [address] Nov, Bipolar I disorder, most recent episode (or current) mixed, moderate F31.62 [place] [address] [address] Nov, Chronic pain G89.29 [place] [address] [address] Nov, Bipolar I disorder, most recent episode (or current) mixed, moderate F31.[address] [address] Nov, Hypokalemia E87.6 [place] [address] [address] Nov, Bipolar I disorder, most recent episode (or current) mixed, moderate F31.62 [place] [address] [address] Oct, Chronic pain G89.29 [facility] [address] [address] Oct, BMI 50.0-59.9, adult Z68.43 and Bipolar I disorder, most recent episode (or current) mixed, moderate F31.62 [place] [address] [address] Oct, Bipolar I disorder, most recent episode (or current) mixed, moderate F31.62 [place] [address] [address] Oct, [place] [address] [address] Oct, Hypokalemia E87.6 [place] [address] [address] Oct, DM neuro manif type II E11.49 [place] [address] [address] Oct, Bipolar I disorder, most recent episode (or current) mixed, moderate F31.62 [place] [address] [address] Oct, Bipolar I disorder, most recent episode (or current) mixed, moderate F31.62 [place] [address] [address] Oct, Hyperkalemia E87.5 ; Falling R29.6 ; BMI 50.0-59.9, adult Z68.43 and Acute left ankle pain M25.572 [place] [address] [address] Oct, DM neuro manif type II E11.49 [place] [address] [address] Oct, [address] [place] [address] Sep, Chronic pain G89.29 [place] [address] [address] Sep, [facility] [address] [address] Sep, Bilateral primary osteoarthritis of knee M17.0 [place] [address] [address] Sep, Generalized edema R60.1 [place] [address] [address] Sep, Bipolar I disorder, most recent episode (or current) mixed, moderate F31.62 [place] [address] [address] Sep, Hypoxia R09.02 ; Other hypervolemia E87. 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 ; Anemia of chronic illness D63.8 and BMI 50.0-59.9, adult Z68.43 [place] [address] [address] Sep, [place] [address] [address] Sep, Bipolar I disorder, most recent episode (or current) mixed, moderate F31.62 [place] [address] [address] Aug, Chronic pain G89.29 [place] [address] [address] Aug, Generalized edema R60.1 [place] [address] [address] Aug, [place] [address] [address] Aug, [place] [address] [address] 14 Aug, 2017 Bipolar I disorder, most recent episode (or current) mixed, moderate F31.62 [place] [address] [place] [address] Aug, Bipolar I disorder, most recent episode (or current) mixed, moderate F31.62 [place] [address] [address] Aug, Chronic pain G89.[address] [address] Jul, Bipolar I disorder, most recent episode (or current) mixed, moderate F31.[address] [address] Jul, Bipolar I disorder, most recent episode (or current) mixed, moderate F31.62 and BMI 60.0-69.9, adult Z68.[address] [address] Jul, Bipolar I disorder, most recent episode (or current) mixed, moderate F31.[address] [address] Jul, Chronic pain G89.[address] [address] Jul, Bipolar I disorder, most recent episode (or current) mixed, moderate F31.62 [place] [address] [address] Jun, Polyneuropathy associated with underlyin g disease G63 and Diabetes E11.[address] [address] Jun, Bipolar I disorder, most recent episode (or current) mixed, moderate F31.[address] [address] Jun, Chronic pain G89.29 [place] [address] [address] 27 May, 2017 Bipolar I disorder, most recent episode (or current) mixed, moderate F31.62 [place] [address] [address] 21 May, 2017 Bipolar I disorder, most recent episode (or current) mixed, moderate F31.62 [place] [address] [address] 20 May, 2017 Diabetic polyneuropathy associated with type 2 diabetes mellitus E11.42 [place] [address] [address] 18 May, 2017 Bipolar I disorder, most recent episode (or current) mixed, moderate F31.62 [place] [address] [address] 13 May, 2017 Bipolar I disorder, most recent episode (or current) mixed, moderate F31.62 [place] [address] [address] 12 May, 2017 Chronic pain G89.29 [place] [address] [address] 30 Apr, 2017 Bipolar I disorder, most recent episode (or current) mixed, moderate F31.62 [place] [address] [address] Apr, [place] [address] [address] Apr, Chronic pain G89.29 and DM neuro manif t ype II E11.49 [place] [address] [address] Apr, [place] [address] [address] 16 Apr, 2017 Bipolar I disorder, most recent episode (or current) mixed, moderate F31.62 [place] [address] [address] Apr, Chronic pain G89.29 [facility] [address] [address] Apr, Iliotibial band syndrome, left M76.32 [facility] [address] [address] Apr, Bipolar I disorder, most recent episode (or current) mixed, moderate F31.62 [facility] [address] [address] Mar, Bipolar I disorder, most recent episode (or current) mixed, moderate F31.62 [facility] [address] [address] Mar, Bipolar I disorder, most recent episode (or current) mixed, moderate F31.62 [place] [address] [address] Mar, [facility] [address] [address] Mar, Bipolar I disorder, most recent episode (or current) mixed, moderate F31.62 [facility] [address] [address] Mar, Chronic pain G89.29 [facility] [address] [address] Mar, Bipolar I disorder, most recent episode (or current) mixed, moderate F31.62 [facility] [address] [address] Mar, Bipolar I disorder, most recent episode (or current) mixed, moderate F31.62 [facility] [address] [address] Mar, Acute pain of left knee M25.562 ; Left h ip pain M25.552 ; Generalized edema R60.1 and Tongue swelling R22.0 [facility] [address] [address] Mar, [place] [address] [place] [id number] [place] [address] Feb, Chronic pain G89.29 [facility] [address] [address] Feb, Diabetes E11.9 [facility] [address] [place] [id number] [place] [address] January, Chronic pain G89.29 [facility] [address] [address] January, [facility] [address] [address] January, Bipolar I disorder, most recent episode (or current) mixed, moderate F31.62 [place] [address] [place] [id number] [place] [address] Dec, Bipolar I disorder, most recent episode (or current) mixed, moderate F31.62 [place] [address] [address] Dec, Chronic pain G89.29 [facility] [address] [address] Dec, Bipolar I disorder, most recent episode (or current) mixed, moderate F31.62 [place] [address] [place] [id number] [place] [address] Dec, Diabetes E11.9 ; Essential hypertension I10 ; Chronic pain G89.29 and Morbid obesity E66.01 [facility] [address] [id number] [place] [address] Dec, [facility] [address] [address] Dec, Bipolar I disorder, most recent episode (or current) mixed, moderate F31.62 [place] [address] [address] Dec, Bipolar I disorder, most recent episode (or current) mixed, moderate F31.62 [place] [address] [address] Nov, Chronic pain G89.29 [facility] [address] [address] Nov, Bipolar I disorder, most recent episode (or current) mixed, moderate F31.62 [facility] [address] [address] Nov, [facility] [address] [address] Nov, Bipolar I disorder, most recent episode (or current) mixed, moderate F31.62 [place] [address] [address] Nov, Bipolar I disorder, most recent episode (or current) mixed, moderate F31.62 [place] [address] [address] Nov, [facility] [address] [address] Nov, [facility] [address] [address] Nov, [facility] [address] [address] Oct, Chronic pain G89.29 [facility] [address] [address] Oct, Bipolar I disorder, most recent episode (or current) mixed, moderate F31.62 [facility] [address] [address] Oct, [facility] [address] [address] Oct, Chronic pain G89.29 ; Diabetes E11.9 ; A nxiety F41.9 and 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 [facility] [address] [address] Oct, [facility] [address] [address] Oct, Diabetes E11.9 [facility] [address] [address] Oct, Bipolar I disorder, most recent episode (or current) mixed, moderate F31.62 [facility] [address] [address] Sep, Chronic pain G89.29 [facility] [address] [address] Sep, Chronic pain G89.29 [place] [address] [address] Aug, Chronic pain G89.29 [place] [address] [address] Jul, [facility] [address] [address] Jul, Diabetes E11.9 [facility] [address] [address] Jul, Chronic pain G89.29 [facility] [address] [address] Jul, Bipolar I disorder, most recent episode (or current) mixed, moderate F31.62 [place] [address] [address] Jun, Bipolar I disorder, most recent episode (or current) mixed, moderate F31.62 [place] [address] [address] Jun, [place] [address] [address] Jun, Bipolar I disorder, most recent episode (or current) mixed, moderate F31.62 [place] [address] [address] May, Insomnia, unspecified type G47.00 [facility] [address] [address] May, Bipolar I disorder, most recent episode (or current) mixed, moderate F31.62 [facility] [address] [address] May, [place] [address] [address] May, Bipolar I disorder, most recent episode (or current) mixed, moderate F31.62 [place] [address] [address] May, Diabetes E11.9 and Essential hypertensio n I10 [place] [address] [address] Apr, Chronic pain G89.29 [place] [address] [address] Apr, Bipolar I disorder, most recent episode (or current) mixed, moderate F31.62 [place] [address] [address] Apr, [place] [address] [address] Apr, [place] [address] [address] Mar, Chronic pain G89.29 ; Headache, unspecif ied headache type R51 ; Neuropathy G62.9 ; Pain of right hip joint M25.551 and Essential hypertension I10 [place] [address] [address] Mar, Chronic pain G89.29 [place] [address] [address] Mar, Bipolar I disorder, most recent episode (or current) mixed, moderate F31.62 [place] [address] [address] Feb, Bipolar I disorder, most recent episode (or current) mixed, moderate F31.62 and Insomnia, unspecified type G47.00 [place] [address] [address] Feb, Chronic pain G89.29 [facility] [address] [address] Feb, Bipolar I disorder, most recent episode (or current) mixed, moderate F31.62 [place] [address] [address] January, Bipolar I disorder, most recent episode (or current) mixed, moderate F31.62 [place] [address] [address] January, Chronic pain G89.29 [place] [address] [address] January, Chronic pain G89.29 and Essential hypert ension I10 [place] [address] [address] January, Bipolar I disorder, most recent episode (or current) mixed, moderate F31.62 [place] [address] [address] Dec, [place] [address] [address] Dec, [place] [address] [address] Dec, [place] [address] [address] Dec, [place] [address] [address] Nov, Reactive airway disease J45.909 [place] [address] [address] Nov, [place] [address] [address] Nov, 2015 [place] [address] [address] Nov, [place] [address] [address] Nov, [place] [address] [address] Nov, Onychomycosis B35.1 ; Hammertoe M20.40 ; [place] or callus L84 and DM neuro manif type II E11.49 [place] [address] [address] Nov, Chronic pain G89.29 ; Leukocytosis D72.8 29 and Diabetes E11.9 [place] [address] [address] Nov, [place] [address] [address] Oct, Bronchitis J40 [place] [address] [address] Oct, [place] [address] [address] Oct, [place] [address] [address] Oct, Mastoiditis, unspecified laterality H70. 90 and Type 2 diabetes mellitus with complication E11.8 [place] [address] [address] Sep, [place] [address] [address] Sep, Dysuria R30.0 ; Cough R05 ; Benign prost atic hyperplasia with lower urinary tract symptoms, unspecified morphology N40.1 ; Hypokalemia E87.6 and Eustachian tube dysfunction, unspecified laterality H69.80 [place] [address] [address] Sep, Moderate mixed bipolar I disorder F31.62 [facility] [address] [address] Sep, Hypokalemia E87.6 [facility] [address] [address] Sep, [facility] [address] [address] Sep, Upper respiratory tract infection, unspe cified type J06.9 [facility] [address] [address] Aug, [facility] [address] [address] Aug, Dysuria R30.0 [facility] [address] [address] Aug, [facility] [address] [address] Jul, [facility] [address] [address] Jul, [facility] [address] [address] Jul, [facility] [address] [address] Jul, [facility] [address] [address] Jun, [facility] [address] [address] Jun, [facility] [address] [address] Jun, [facility] [address] [address] May, [facility] [address] [address] May, Bipolar I disorder, most recent episode (or current) mixed, moderate 296.62 [facility] [address] [address] May, [facility] [address] [place] [id number] May, Bipolar I disorder, most recent episode (or current) mixed, moderate 296.62 and Major depressive disorder, recurrent episode, severe, specified as with psychotic behavior 296.34 [facility] [address] [address] May, Bipolar I disorder, most recent episode (or current) mixed, moderate 296.62 [facility] [address] [address] May, [facility] [address] [address] Apr, [facility] [address] [address] Apr, [facility] [address] [address] Apr, Unspecified disorder of kidney and urete r 593.9 and Diabetes mellitus type 2, uncontrolled 250.02 [facility] [address] [address] Apr, [facility] [address] [address] Apr, [facility] [address] [address] Apr, [facility] [address] [address] Apr, [facility] [address] [address] Apr, Diabetes mellitus type II, uncontrolled 250.02 [facility] [address] [address] Apr, [facility] [address] [address] Mar, [facility] [address] [address] Mar, [facility] [address] [address] Mar, [facility] [address] [address] Mar, Major depressive disorder, recurrent epi sode, severe, specified as with psychotic behavior 296.34 and Bipolar I disorder, most recent episode (or current) mixed, moderate 296.62 [facility] [address] [address] Mar, Diabetes 250.00 ; Anuria 788.5 ; Nausea and vomiting 787.01 and Diarrhea 787.91 [facility] [address] [address] Mar, Diabetes 250.00 [facility] [address] [address] Mar, [facility] [address] [address] Mar, Diabetes 250.00 [facility] [address] [address] Mar, [facility] [address] [address] Mar, [facility] [address] [address] Mar, [facility] [address] [address] Mar, [facility] [address] [address] Mar, Bipolar I disorder, most recent episode (or current) mixed, moderate 296.62 and Major depressive disorder, recurrent episode, severe, specified as with psychotic behavior 296.34 [facility] [address] [address] Mar, Magnesium deficiency 275.2 ; Hypokalemia 276.8 ; Nausea & vomiting 787.01 and Diabetes mellitus type 2, uncontrolled 250.02 [place] [address] [address] Feb, [address] [address] Feb, Bipolar I disorder, most recent episode (or current) mixed, moderate 296.62 [place] [address] [address] Feb, Nausea and vomiting 787.01 ; Left elbow pain 719.42 ; Anuria 788.5 and Diabetes 250.[address] [address] Feb, [address] [address] Feb, Hypopotassemia 276.8 and Hypokalemia [address] [address] Feb, Hypopotassemia 276.8 and Hypokalemia [address] [address] Feb, Seborrheic keratoses 702.[address] [address] Feb, Hypopotassemia 276.8 and Low magnesium l evels 275.2 [place] [address] [address] January, [address] [address] January, [address] [address] January, [address] [address] January, Scalp lesion 709.9 [facility] [address] [place] [id number] [place] [address] January, [facility] [address] [place] [id number] [place] [address] Dec, Tear of medial cartilage or meniscus of knee, current 836.0 and 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 [facility] [address] [place] [id number] [place] [address] Dec, [facility] [address] [id number] [place] [address] Dec, [facility] [address] [place] [id number] [place] [address] Dec, Squamous cell carcinoma, 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 42 [facility] [address] [place] [id number] [place] [address] 14 Dec, 2014 [facility] [address] [place] [address] [id number] [place] [address] Dec, [facility] [address] [place] [id number] [place] [address] Nov, [facility] [address] [place] [address] [id number] [place] [address] Nov, [facility] [address] [place] [id number] [place] [address] Nov, [facility] [address] [address] [id number] [place] [address] Nov, [facility] [address] [address] [id number] [place] [address] Nov, [facility] [address] [id number] [place] [address] Nov, [facility] [address] [place] [id number] [place] [address] Nov, [facility] [address] [id number] [place] [address] Nov, [facility] [address] [id number] [place] [address] Nov, [facility] [address] [id number] [place] [address] Nov, [facility] [address] [id number] [place] [address] Nov, [facility] [address] [id number] [place] [address] Nov, [facility] [address] [id number] [place] [address] Oct, 2014 [facility] [address] [id number] [place] [address] Oct, 2014 [facility] [address] [id number] [place] [address] Oct, 2014 [facility] [address] [id number] [place] [address] Oct, 2014 [facility] [address] [id number] [place] [address] Oct, 2014 [facility] [address] [id number] [place] [address] Oct, [facility] [address] [id number] [place] [address] Oct, 2014 [facility] [address] [id number] [place] [address] Oct, [facility] [address] [id number] [place] [address] Oct, [facility] [address] [id number] [place] [address] Sep, [facility] [address] [id number] [place] [address] Sep, [facility] [address] [id number] [place] [address] Sep, [facility] [address] [id number] [place] [address] Sep, [facility] [address] [facility] [id number] [place] [address] Sep, [facility] [address] [id number] [place] [address] Sep, [facility] [address] [id number] [place] [address] Sep, [facility] [address] [id number] [place] [address] Sep, [facility] [address] [id number] [place] [address] Sep, [facility] [address] [id number] [place] [address] Sep, [facility] [address] [id number] [place] [address] Sep, [facility] [address] [id number] [place] [address] Sep, [facility] [address] [id number] [place] [address] Sep, [facility] [address] [id number] [place] [address] Sep, [facility] [address] [id number] [place] [address] Sep, [facility] [address] [id number] [place] [address] Sep, [facility] [address] [id number] [place] [address] Aug, [facility] [address] [id number] [place] [address] Aug, [facility] [address] [id number] [place] [address] Aug, [facility] [address] [id number] [place] [address] Aug, [facility] [address] [id number] [place] [address] Aug, [facility] [address] [facility] [id number] [facility] [place] [address] Aug, [facility] [address] [facility] [id number] [facility] [place] [address] Aug, [facility] [address] [id number] [place] [address] Aug, [facility] [address] [id number] [facility] [place] [address] Aug, [facility] [address] [facility] [id number] [place] [address] Aug, [facility] [address] [id number] [place] [address] Aug, [facility] [address] [place] [id number] Aug, [facility] [address] [id number] [facility] [place] [address] Aug, [facility] [address] [id number] [place] [address] Aug, [facility] [address] [id number] [place] [address] Aug, [facility] [address] [id number] [place] [address] Aug, [facility] [address] [id number] [place] [address] Aug, [facility] [address] [facility] [id number] [place] [address] Aug, [facility] [address] [facility] [id number] [place] [address] Aug, [facility] [address] [facility] [id number] [place] [address] Aug, [facility] [address] [id number] [place] [address] Aug, [facility] [address] [id number] [place] [address] 08 Aug, 2014 [facility] [address] [id number] [place] [address] Aug, [facility] [address] [id number] [place] [address] Aug, [facility] [address] [id number] [place] [address] Aug, [facility] [address] [id number] [place] [address] Aug, [facility] [address] [id number] [place] [address] Aug, [facility] [address] [id number] [place] [address] Aug, [facility] [address] [id number] [place] [address] Aug, [facility] [address] [id number] [place] [address] Aug, [facility] [address] [id number] [place] [address] Jul, [facility] [address] [id number] [place] [address] Jul, [facility] [address] [id number] [place] [address] Jul, [facility] [address] [id number] [place] [address] Jul, [facility] [address] [id number] [place] [address] Jul, [facility] [id number] [place] [address] Jul, [facility] [address] [id number] [place] [address] Jul, [facility] [address] [id number] [place] [address] Jul, [facility] [address] [id number] [place] [address] Jul, [facility] [address] [id number] [place] [address] Jul, [facility] [address] [id number] [place] [address] Jun, [facility] [address] [id number] [place] [address] Jun, [facility] [address] [id number] [place] [address] Jun, [facility] [address] [id number] [place] [address] Jun, [facility] [address] [id number] [place] [address] Jun, [facility] [address] [id number] [place] [address] Jun, [facility] [address] [id number] [place] [address] Jun, [facility] [address] [id number] [place] [address] Jun, [facility] [address] [id number] [place] [address] Jun, [facility] [address] [id number] [place] [address] Jun, [facility] [address] [id number] [place] [address] 29 May, 2014 [facility] [address] [id number] [place] [address] 29 Sep, 2013 [facility] [place] [facility] [address] [id number] [place] [address] 26 Sep, 2013 [facility] [place] [facility] [address] [id number] [place] [address] 26 Sep, 2013 [facility] [place] [facility] [address] [id number] [place] [address] 17 Sep, 2013 [facility] [place] [facility] [address] [id number] [facility] [place] [address] 17 May, 2013 [facility] [place] [facility] [address] [facility] [id number] [facility] [place] [address] 15 May, 2013 [facility] [place] [facility] [address] [facility] [id number] [facility] [place] [address] 15 May, 2013 [facility] [place] [facility] [address] [id number] [place] [address] 15 May, 2013 [facility] [place] [facility] [address] [facility] [id number] [facility] [place] [address] 15 May, 2013 [facility] [place] [facility] [address] [id number] [facility] [place] [address] 10 May, 2013 [facility] [facility] [address] [id number] [place] [address] 10 May, 2013 [facility] [place] [facility] [address] [id number] [facility] [place] [address] 09 May, 2013 [facility] [place] [facility] [address] [facility] [id number] [facility] [place] [address] 09 May, 2013 [facility] [place] [facility] [address] [id number] [facility] [place] [address] 04 May, 2013 [facility] [place] [facility] [address] [facility] [id number] [place] [address] 04 May, 2013 [facility] [address] [id number] [place] [address] Apr, 2013 [facility] [place] [facility] [address] [facility] [id number] [place] [address] Apr, 2013 [facility] [place] [facility] [address] [id number] [place] [address] Apr, 2013 [facility] [facility] [address] [facility] [id number] [place] [address] Apr, 2013 [facility] [place] [facility] [address] [id number] [place] [address] Apr, 2013 [facility] [place] [facility] [address] [id number] [place] [address] Apr, [facility] [facility] [address] [id number] [facility] [place] [address] Apr, [facility] [place] [facility] [address] [facility] [id number] [facility] [place] [address] Apr, [facility] [place] [facility] [address] [id number] [facility] [place] [address] Apr, [facility] [place] [facility] [address] [id number] [facility] [place] [address] Apr, [facility] [place] [facility] [address] [id number] [facility] [place] [address] Apr, [facility] [address] [id number] [place] [address] Apr, [facility] [facility] [address] [id number] [place] [address] Apr, [facility] [facility] [address] [id number] [facility] [place] [address] Apr, [facility] [address] [id number] [place] [address] Apr, [facility] [address] [id number] [place] [address] Mar, [facility] [address] [id number] [place] [address] Mar, [facility] [address] [id number] [facility] [place] [address] Mar, [facility] [address] [id number] [place] [address] Mar, [facility] [address] [id number] [place] [address] Mar, [facility] [address] [id number] [place] [address] Mar, [facility] [address] [id number] [place] [address] Mar, [facility] [address] [facility] [id number] [place] [address] Mar, 2013 [facility] [address] [id number] [place] [address] Mar, 2013 [facility] [address] [id number] [place] [address] Mar, 2013 [facility] [address] [id number] [place] [address] Mar, 2013 [facility] [address] [facility] [id number] [place] [address] Mar, 2013 [facility] [address] [id number] [place] [address] Mar, 2013 [facility] [address] [id number] [place] [address] Mar, 2013 [facility] [address] [id number] [place] [address] Mar, 2013 [facility] [address] [id number] [place] [address] Mar, 2013 [facility] [address] [id number] [place] [address] Mar, 2013 [facility] [address] [id number] [place] [address] Mar, 2013 [facility] [address] [id number] [place] [address] Feb, [facility] [address] [id number] [place] [address] Feb, [facility] [address] [facility] [id number] [place] [address] Feb, [facility] [address] [id number] [place] [address] Feb, [facility] [address] [id number] [place] [address] Feb, [facility] [address] [id number] [place] [address] Feb, [facility] [address] [facility] [id number] [facility] [place] [address] Feb, [facility] [address] [facility] [id number] [facility] [place] [address] Feb, [facility] [address] [facility] [id number] [facility] [place] [address] Feb, [facility] [address] [facility] [id number] [facility] [place] [address] Feb, [facility] [address] [facility] [id number] [facility] [place] [address] Feb, [facility] [address] [facility] [id number] [facility] [place] [address] Feb, [facility] [address] [id number] [place] [address] Feb, [facility] [address] [id number] [facility] [place] [address] Feb, [facility] [address] [facility] [id number] [place] [address] January, [facility] [address] [id number] [facility] [place] [address] January, [facility] [address] [id number] [place] [address] January, [facility] [address] [id number] [place] [address] January, [facility] [address] [facility] [id number] [place] [address] January, [facility] [address] [facility] [id number] [place] [address] January, [facility] [address] [facility] [id number] [place] [address] January, [facility] [address] [id number] [facility] [place] [address] January, [facility] [address] [id number] [place] [address] January, [facility] [address] [id number] [place] [address] January, [facility] [address] [facility] [id number] [place] [address] January, [facility] [address] [id number] [place] [address] January, [facility] [address] [id number] [place] [address] January, [facility] [address] [id number] [place] [address] January, [facility] [address] [id number] [place] [address] Dec, [facility] [address] [id number] [place] [address] Dec, [facility] [address] [id number] [place] [address] Dec, [facility] [address] [id number] [place] [address] Dec, [facility] [address] [id number] [place] [address] Dec, [facility] [address] [id number] [place] [address] Dec, [facility] [address] [id number] [place] [address] Dec, [facility] [address] [id number] [place] [address] Dec, [facility] [address] [id number] [place] [address] Dec, [facility] [address] [id number] [place] [address] Dec, [facility] [address] [id number] [place] [address] Nov, [facility] [address] [id number] [place] [address] Nov, [facility] [address] [id number] [place] [address] Nov, [facility] [address] [id number] [place] [address] Nov, [facility] [address] [id number] [place] [address] Nov, [facility] [address] [id number] [place] [address] Nov, [facility] [address] [id number] [place] [address] Nov, [facility] [address] [id number] [place] [address] Nov, [facility] [address] [id number] [place] [address] Nov, [facility] [address] [id number] [place] [address] Nov, [facility] [address] [id number] [place] [address] Oct, [facility] [address] [id number] [place] [address] Oct, [facility] [address] [id number] [place] [address] Oct, [facility] [address] [id number] [place] [address] Oct, [facility] [address] [id number] [place] [address] Oct, [facility] [address] [id number] [place] [address] Oct, [facility] [address] [id number] [place] [address] 14 Oct, 2013 [facility] [address] [id number] [place] [address] 14 Oct, 2013 [facility] [address] [facility] [id number] [place] [address] Oct, [facility] [address] [id number] [place] [address] Oct, [facility] [address] [id number] [place] [address] Oct, [facility] [address] [id number] [place] [address] Oct, [facility] [address] [id number] [place] [address] Oct, [facility] [address] [id number] [place] [address] Oct, [facility] [address] [id number] [place] [address] Sep, [facility] [address] [id number] [place] [address] Sep, [facility] [address] [id number] [place] [address] Sep, [facility] [address] [id number] [place] [address] Sep, [facility] [address] [id number] [place] [address] Sep, [facility] [address] [id number] [place] [address] Sep, [facility] [address] [id number] [place] [address] Sep, [facility] [address] [id number] [place] [address] Sep, [facility] [address] [id number] [place] [address] Sep, [facility] [address] [id number] [place] [address] Sep, [facility] [address] [id number] [place] [address] Aug, [facility] [address] [id number] [place] [address] Aug, [facility] [address] [id number] [place] [address] Jul, [facility] [address] [id number] [place] [address] Jul, [facility] [address] [id number] [place] [address] Jul, [facility] [address] [id number] [place] [address] Jul, [facility] [address] [id number] [place] [address] Jul, [facility] [address] [id number] [place] [address] Jul, [facility] [address] [id number] [place] [address] Jul, [facility] [address] [id number] [place] [address] Jul, [facility] [address] [id number] [place] [address] Jul, [facility] [address] [id number] [place] [address] Jul, [facility] [address] [id number] [place] [address] Jul, [facility] [address] [id number] [place] [address] Jul, [facility] [address] [id number] [place] [address] Jul, [facility] [address] [id number] [place] [address] Jul, [facility] [address] [id number] [place] [address] Jul, [facility] [address] [id number] [place] [address] Jul, [facility] [address] [id number] [place] [address] Jul, [facility] [address] [id number] [place] [address] Jul, [facility] [address] [id number] [place] [address] Jul, 2012 [facility] [address] [id number] [place] [address] Jun, 2012 [facility] [address] [id number] [place] [address] Jun, 2012 [facility] [address] [id number] [place] [address] Jun, 2012 [facility] [address] [id number] [place] [address] Jun, 2012 [facility] [address] [id number] [place] [address] Jun, [facility] [address] [id number] [place] [address] Jun, 2012 [facility] [address] [id number] [place] [address] Jun, 2012 [facility] [address] [id number] [place] [address] Jun, 2012 [facility] [address] [id number] [place] [address] Jun, 2012 [facility] [address] [id number] [place] [address] Jun, 2012 [facility] [address] [id number] [place] [address] Jun, 2012 [facility] [address] [id number] [place] [address] May, 2012 [facility] [address] [id number] [facility] [place] [address] 25 May, 2012 [facility] [address] [id number] [place] [address] 19 May, 2012 [facility] [address] [facility] [id number] [place] [address] 17 May, 2012 [facility] [address] [id number] [place] [address] 11 May, 2012 [facility] [address] [id number] [place] [address] 10 May, 2012 [facility] [address] [id number] [place] [address] 09 May, 2012 [facility] [address] [id number] [place] [address] 05 May, 2012 [facility] [address] [id number] [place] [address] Apr, [facility] [address] [id number] [place] [address] Apr, [facility] [address] [id number] [place] [address] Apr, [facility] [address] [id number] [place] [address] Apr, [facility] [address] [id number] [place] [address] Apr, [facility] [address] [id number] [place] [address] Mar, [facility] [address] [id number] [place] [address] Mar, [facility] [address] [id number] [place] [address] Mar, [facility] [address] [id number] [place] [address] Mar, [facility] [address] [id number] [place] [address] Mar, [facility] [address] [id number] [place] [address] Mar, [facility] [address] [id number] [place] [address] Mar, [facility] [address] [id number] [place] [address] Mar, [facility] [address] [id number] [place] [address] Feb, [facility] [address] [id number] [place] [address] Feb, [facility] [address] [id number] [place] [address] January, [facility] [address] [id number] [place] [address] January, [facility] [address] [id number] [place] [address] Dec, [facility] [address] [id number] [place] [address] Dec, [facility] [address] [id number] [place] [address] Nov, [facility] [address] [id number] [place] [address] Nov, [facility] [address] [id number] [place] [address] Nov, [facility] [address] [id number] [place] [address] Nov, [facility] [address] [id number] [place] [address] Oct, [facility] [address] [id number] [place] [address] Oct, [facility] [address] [id number] [place] [address] Oct, [facility] [address] [id number] [place] [address] 26 Oct, 2012 [facility] [address] [id number] [place] [address] 16 Oct, 2012 [facility] [address] [id number] [place] [address] 14 Oct, 2012 [facility] [address] [id number] [place] [address] 08 Oct, 2012 [facility] [address] [id number] [place] [address] 07 Oct, 2012 [facility] [address] [id number] [place] [address] Oct, [facility] [address] [id number] [place] [address] Sep, [facility] [address] [id number] [place] [address] Sep, [facility] [address] [id number] [place] [address] Sep, [facility] [address] [id number] [place] [address] Sep, [facility] [address] [id number] [place] [address] Sep, [facility] [address] [id number] [place] [address] Sep, [facility] [address] [id number] [place] [address] Sep, [facility] [address] [id number] [place] [address] Sep, [facility] [id number] [place] [address] Aug, [facility] [address] [id number] [place] [address] Aug, [facility] [address] [id number] [place] [address] Aug, [facility] [address] [id number] [place] [address] Aug, [facility] [address] [id number] [place] [address] Aug, [facility] [address] [id number] [place] [address] Aug, [facility] [address] [id number] [place] [address] Aug, [facility] [address] [id number] [place] [address] Aug, [facility] [address] [id number] [place] [address] Jul, [facility] [address] [id number] [place] [address] Jul, [facility] [address] [id number] [place] [address] Jul, [facility] [address] [id number] [place] [address] Jul, [facility] [address] [id number] [place] [address] Jul, [facility] [address] [id number] [place] [address] Jul, [facility] [address] [id number] [place] [address] Jun, [facility] [address] [id number] [place] [address] Jun, [facility] [address] [id number] [place] [address] Jun, [facility] [address] [id number] [place] [address] Jun, [facility] [address] [id number] [place] [address] Jun, [facility] [address] [id number] [place] [address] Jun, [facility] [address] [facility] [id number] [place] [address] Jun, [facility] [address] [id number] [place] [address] Jun, [facility] [address] [id number] [place] [address] Jun, [facility] [address] [id number] [place] [address] May, [facility] [address] [facility] [id number] [place] [address] 24 May, 2012 [facility] [address] [id number] [place] [address] May, [facility] [address] [id number] [place] [address] Apr, [facility] [address] [id number] [place] [address] Apr, [facility] [id number] [place] [address] Apr, [facility] [id number] [place] [address] Apr, [facility] [id number] [place] [address] Apr, [facility] [id number] [place] [address] Apr, [facility] [id number] [place] [address] Mar, [facility] [id number] [place] [address] Mar, [facility] [id number] [place] [address] Mar, [facility] [id number] [place] [address] Mar, [facility] [id number] [place] [address] 29 Feb, 2012 [facility] [id number] [place] [address] Feb, [facility] [id number] [place] [address] Feb, [facility] [id number] [place] [address] Feb, [facility] [id number] [place] [address] Feb, [facility] [id number] [place] [address] January, [facility] [id number] [place] [address] January, [facility] [id number] [place] [address] January, [facility] [id number] [place] [address] January, [facility] [id number] [place] [address] January, [facility] [id number] [place] [address] January, [facility] [id number] [place] [address] Dec, [facility] [id number] [place] [address] Dec, [facility] [id number] [place] [address] Dec, [facility] [id number] [place] [address] Dec, [facility] [id number] [place] [address] Dec, [facility] [id number] [place] [address] Nov, [facility] [id number] [place] [address] 14 Nov, 2011 [facility] [id number] [place] [address] 12 Nov, 2011 [facility] [id number] [place] [address] 07 Nov, 2011 [facility] [id number] [place] [address] 29 Oct, 2011 [facility] [id number] [place] [address] 28 Oct, 2011 [facility] [id number] [place] [address] 24 Oct, 2011 [facility] [id number] [place] [address] 13 Oct, 2011 [facility] [id number] [place] [address] 08 Oct, 2011 [facility] [id number] [place] [address] Sep, [facility] [id number] [place] [address] Sep, [facility] [id number] [place] [address] Sep, [facility] [id number] [place] [address] Sep, [facility] [id number] [place] [address] Sep, [facility] [id number] [place] [address] Sep, [facility] [id number] [place] [address] Aug, [facility] [id number] [place] [address] Aug, [facility] [id number] [place] [address] Aug, [facility] [id number] [facility] [place] [address] Jul, [facility] [id number] [place] [address] Jul, [facility] [id number] [place] [address] Jul, [facility] [id number] [place] [address] Jul, [facility] [id number] [place] [address] Jun, [facility] [id number] [place] [address] Jun, [facility] [id number] [place] [address] Jun, [facility] [id number] [place] [address] Jun, [facility] [id number] [place] [address] Jun, [facility] [id number] [place] [address] Jun, [facility] [id number] [place] [address] Mar, [facility] [id number] [place] [address] Dec, [facility] [id number] [place] [address] Dec, [facility] [id number] [place] [address] Nov, [facility] [id number] [place] [address] 16 Nov, 2010 [facility] [address] [id number] [place] [address] Sep, [facility] [id number] [place] [address] 31 Aug, 2010 [facility] [id number] [place] [address] 29 Aug, 2010 [facility] [id number] [place] [address] 29 Aug, 2010 [facility] [id number] [place] [address] 29 Aug, 2010 [facility] [id number] [place] [address] 27 Aug, 2010 [facility] [id number] [place] [address] 14 Aug, 2010 [facility] [id number] [place] [address] 08 Aug, 2010 [facility] [id number] [place] [address] 08 Aug, 2010 [facility] [id number] [place] [address] 07 Aug, 2010 [facility] [id number] [place] [address] 06 Aug, 2010 [facility] [id number] [place] [address] 06 Aug, 2010 [facility] [id number] [place] [address] Aug, [facility] [id number] [place] [address] 30 Jul, 2010 [facility] [id number] [place] [address] 30 Jul, 2010 [facility] [id number] [place] [address] 30 Jul, 2010 [facility] [id number] [place] [address] 17 Jul, 2010 [facility] [id number] [place] [address] 08 Jul, 2010 [facility] [id number] [place] [address] Jul, [facility] [id number] [place] [address] Jun, [facility] [id number] [place] [address] Jun, [facility] [id number] [place] [address] Jun, [facility] [id number] [place] [address] Jun, [facility] [id number] [place] [address] Apr, [facility] [id number] [place] [address] Mar, [facility] [id number] [place] [address] Feb, [facility] [id number] [place] [address] January, [facility] [id number] [place] [address] 15 Dec, 2009 [facility] [id number] [place] [address] Nov, [facility] [id number] [place] [address] Aug, [facility] [id number] [place] [address] Aug, [facility] [id number] [place] [address] Aug, [facility] [id number] [place] [address] Jul, [facility] [id number] [place] [address] Jul, [facility] [id number] [place] [address] Jul, [facility] [id number] [place] [address] Jun, [facility] [id number] [place] [address] Jun, [facility] [id number] [place] [address] Jun, [facility] [id number] [place] [address] Jun, [facility] [address] [address] Jun, [facility] [id number] [place] [address] Jun, [facility] [id number] [place] [address] Apr, [facility] [id number] [place] [address] Apr, [facility] [id number] [place] [address] Feb, [facility] [id number] [place] [address] January, [facility] [id number] [place] [address] Dec, IMMUNIZATIONS No Known Immunizations SOCIAL HISTORY [...] (Left) 2000 Surgical History EGD ([facility]) 2009 Surgical History colonoscopy 2009 ([facility]), 2013 ([place] ) Surgical History heart cath: CAD w/ [...] [facility] inpatient mental health e[facility] rly 2000's Hospitalization History hyperkalemia 10/2017 Hospitalization History fluid in lung
--- OUTSIDE RECORDS SUMMARY | 2020-03-01 17:03 | XMS REPORT ---
Author Author Michele WASHBURN Organization [facility] [place] Address [address] [place] [address] Care Team Providers Care Sugar Sampler Name Role Phone NOEMI WASHBURN Unavailable PROBLEMS Type Condition ICD9-CM Code [id number] Code Onset Dates Condition S tatus SNOMED Code Problem DM neuro manif type II E11.49 Active 79820501 Problem Chronic pain G89.29 Active 8984217 1 Problem Diabetes E11.9 Active 36543108 Problem Reactive airway disease J45.909 Active 927629776070 Problem Leukocytosis D72.829 Active 7428088 06 Problem Insomnia, unspecified type G47.00 Act sharon 340761703 Problem Bipolar I disorder, most recent episode (or curr ent) mixed, moderate F31.62 Active 39394650 Problem Primary osteoarthritis of right knee M17.11 Active 566562356791649 Problem Cough R05 Active 77368224 Problem Pure hypercholesterolemia E78.00 Acti ve 954901163 Problem Dysuria R30.0 Active 75117383 Problem Benign prostatic hyperplasia with lower urinary tract symptoms, unspecified morphology N40.1 Active 60566 6007 Problem Eustachian tube dysfunction, unspecified laterality H69.80 Active 49687465 Problem Polyneuropathy associated with underlying disease G63 Active 536407122 Problem Diabetic polyneuropathy associated with type 2 d iabetes mellitus E11.42 Active 09181431 Problem Anemia of chronic illness D63.8 Acti ve 227442246 Problem Chronic lymphocytic leukemia C91.10 A ctive 13270768 Problem Bilateral primary osteoarthritis of knee M17.0 Active 025609005 Problem 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 Active 838239203 Problem Eye exam abnormal R93.8 Active 16 4433988 Problem Retinal edema H35.81 Active 451107 6 Problem Lymphocytosis D72.820 Active 964837 09 Problem Bipolar disorder, in partial remission, most rec ent episode depressed F31.75 Active 80534356 Problem Hypokalemia E87.6 Active 85837153 Problem Falling R29.6 Active 043730307 Problem Pressure ulcer of other site, stage 3 L89.893 Active 377383400 Problem Other iron deficiency anemia D50.8 A ctive 53899193 Problem Mild cognitive impairment G31.84 Acti ve 349424560 Problem Skin cancer C44.90 Active 06990254 7 Problem halfway (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 Z79.4 Active 919961903 Problem Morbid obesity E66.01 Active 57032 6002 Problem Mood disorder F39 Active 624294 05 Problem Anxiety F41.9 Active 98909929 Problem Essential hypertension I10 Active 60361762 Problem Bipolar disorder F31.9 Active 137 07063 Problem Chronic diastolic (congestive) heart failure I50.3 2 Active 166889981 Problem Psychophysiological insomnia F51.04 A ctive 394856270 Problem Type 2 diabetes mellitus with diabetic neuropathy, uns pecified E11.40 Active 64042983 ALLERGIES No Information ENCOUNTERS Encounter Location Date Diagnosis [place] [address] [address] Oct, [facility] [place] [address] [address] Sep, [place] [address] [address] Sep, [facility] [place] [address] [address] Sep, [place] [address] [address] Sep, Mood disorder F39 [facility] [place] [address] [address] Sep, [facility] [place] [address] [address] Sep, Mood disorder F39 [facility] [place] [address] [address] Sep, [facility] [place] [address] [address] Aug, Mood disorder [address] [place], [place] [address] [address] [place] [id number] [place] [address] Aug, [facility] [place] [address] [address] Aug, [facility] [place] [address] [address] Aug, [facility] [place] [address] [address] Aug, [facility] [place] [address] [address] Aug, [facility] [place] [address] [address] Aug, [facility] [place] [address] [address] Aug, [facility] [place] [address] [address] Aug, Essential hypertension I10 [facility] [place] [address] [address] Aug, Bipolar disorder, in partial remission, most recent episode depressed F31.75 and Mild cognitive impairment G31.84 [facility] [place] [address] [address] Aug, Mood disorder F39 [facility] [place] [address] [address] Aug, [facility] [place] [address] [address] Aug, Bipolar disorder, in partial remission, most recent episode depressed F31.75 and Mild cognitive impairment G31.84 [facility] [place] [address] [address] Jul, Bipolar disorder, in partial remission, most recent episode depressed F31.75 and Mild cognitive impairment G31.84 [facility] [place] [address] [address] Jul, Psychophysiological insomnia F51.04 [facility] [place] [address] [address] Jul, [facility] [place] [address] [address] Jul, [facility] [place] [address] [address] Jul, [facility] [place] [address] [address] Jul, [facility] [place] [address] [address] Jul, [facility] [place] [address] [address] Jul, [facility] [place] [address] [address] Jul, Bipolar disorder, in partial remission, most recent episode depressed F31.75 and Mild cognitive impairment G31.84 [place] [address] [address] Jul, Chronic pain G89.29 ; Diabetes E11.9 ; E ssential hypertension I10 ; Ill feeling R68.89 ; Local infection of the skin and subcutaneous tissue, unspecified L08.9 and Other injury of unspecified body region, initial encounter T14.8XXA [place] [address] [address] Jun, Bipolar disorder, in partial remission, most recent episode depressed F31.75 and Mild cognitive impairment G31.84 [facility] [place] [address] [address] Jun, [facility] [place] [address] [address] Jun, Bipolar disorder, in partial remission, most recent episode depressed F31.75 and Mild cognitive impairment G31.84 [facility] [place] [address] [address] Jun, Psychophysiological insomnia F51.04 [place] [address] [address] Jun, Psychophysiological insomnia F51.04 ; Ch ronic pain G89.29 ; Bipolar I disorder, most recent episode (or current) mixed, moderate F31.62 ; 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 ; Polyneuropathy associated with underlying disease G63 ; Type 2 diabetes mellitus with diabetic neuropathy, unspecified E11.40 ; halfway (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 Z79.4 and Hyperglycemia R73.9 [place] [address] [address] Jun, Bipolar disorder, in partial remission, most recent episode depressed F31.75 and Mild cognitive impairment G31.84 [place] [address] [address] Jun, [address] [address] Jun, Bipolar disorder F31.9 [place] [address] [address] May, Bipolar disorder, in partial remission, most recent episode depressed F31.75 and Mild cognitive impairment G31.84 [place] [address] [address] May, [address] [address] Apr, Chronic pain G89.29 and Bipolar disorder F31.9 [place] [address] [address] Mar, Bipolar disorder F31.9 and Chronic pain G89.[address] [address] Feb, Bipolar disorder F31.9 [place] [address] [address] Feb, Cellulitis of right upper extremity L03. 113 and Skin abrasion T14.8XXA [place] [address] [address] Feb, Bipolar disorder, in partial remission, most recent episode depressed F31.75 and Mild cognitive impairment G31.84 [facility] [place] [address] [address] Feb, Chronic pain G89.29 [facility] [place] [address] [address] Feb, Bipolar disorder, in partial remission, most recent episode depressed F31.75 and Mild cognitive impairment G31.84 [facility] [place] [address] [address] January, Bipolar disorder, in partial remission, most recent episode depressed F31.75 and Mild cognitive impairment G31.84 [facility] [place] [address] [address] January, Chronic pain G89.29 and Bipolar disorder F31.9 [facility] [place] [address] [address] January, Bipolar disorder, in partial remission, most recent episode depressed F31.75 and Mild cognitive impairment G31.84 [facility] [place] [address] [address] Dec, [facility] [place] [address] [address] Dec, Chronic pain G89.29 and Bipolar disorder F31.9 [facility] [place] [address] [address] Dec, Edema of both lower extremities R60.0 [facility] [place] [address] [address] Dec, Bipolar disorder F31.9 [facility] [place] [address] [address] Dec, Bipolar disorder, in partial remission, most recent episode depressed F31.75 and Mild cognitive impairment G31.84 [facility] [place] [address] [address] Nov, [place] [address] [address] Nov, Chronic pain G89.[address] [address] Nov, Bipolar disorder, in partial remission, most recent episode depressed F31.75 and Mild cognitive impairment G31.[address] [address] Nov, Bipolar disorder F31.[address] [address] Nov, Encounter for Medicare annual wellness e [...] morphology N40.1 and Essential hypertension I10 [address] [address] Oct, Chronic pain G89.[address] [address] Oct, Diabetes E11.[address] [address] Oct, Bipolar I disorder, most recent episode (or current) mixed, moderate F31.62 and Mild cognitive impairment G31.[address] [address] Oct, Bipolar I disorder, most recent episode (or current) mixed, moderate F31.62 and Mild cognitive impairment G31.[address] [address] Sep, Bipolar I disorder, most recent episode (or current) mixed, moderate F31.62 and Mild cognitive impairment G31.84 [place] [address] [address] Sep, [place] [address] [address] Sep, Diabetes E11.9 ; Hypoxia R09.02 ; Hyperg lycemia R73.9 ; Therapeutic drug monitoring Z51.81 ; BMI 50.0-59.9, adult Z68.43 and Skin cancer C44.90 [place] [address] [address] Sep, Chronic pain G89.29 [place] [address] [address] Sep, Bipolar I disorder, most recent episode (or current) mixed, moderate F31.62 [place] [address] [address] Sep, [place] [address] [address] Sep, [place] [address] [address] Aug, Chronic pain G89.29 [place] [address] [address] Aug, Bipolar I disorder, most recent episode (or current) mixed, moderate F31.62 [place] [address] [address] Aug, Bipolar I disorder, most recent episode (or current) mixed, moderate F31.62 and Mild cognitive impairment G31.84 [place] [address] [address] Jul, [place] [address] [address] Jul, Chronic pain G89.29 [facility] [place] [address] [place] [id number] [place] [address] Jul, Bipolar I disorder, most recent episode (or current) mixed, moderate F31.62 and Mild cognitive impairment G31.84 [facility] [place] [address] [address] Jul, Bipolar I disorder, most recent episode (or current) mixed, moderate F31.62 and MCI (mild cognitive impairment) G31.84 [place] [address] [address] Jul, [place] [address] [address] Jul, [place] [address] [address] Jul, Bipolar I disorder, most recent episode (or current) mixed, moderate F31.62 [place] [address] [place] [id number] [place] [address] Jul, Chronic pain G89.29 [place] [address] [address] Jun, Bipolar I disorder, most recent episode (or current) mixed, moderate F31.62 [place] [address] [place] [id number] [place] [address] Jun, Pre-procedure lab exam Z01.812 [place] [id number] [place] [address] Jun, [place] [address] [id number] [place] [id number] Jun, [address] [address] Jun, [place] [address] [place] [id number] [place] [address] Jun, Forgetfulness R68.89 ; Pre-syncope R55 ; Localized edema R60.0 ; Other iron deficiency anemia D50.8 and BMI 50.0-59.9, adult Z68.43 [place] [address] [address] Jun, Chronic pain G89.29 [place] [address] [address] Jun, Chronic pain G89.29 [place] [address] [address] Jun, Bipolar I disorder, most recent episode (or current) mixed, moderate F31.62 [place] [address] [address] May, Chronic pain G89.29 [place] [address] [address] Apr, [place] [address] [address] Apr, Chronic pain G89.29 [place] [address] [address] Apr, Primary osteoarthritis of right knee M17 .11 [place] [address] [address] Mar, [place] [address] [address] Mar, BMI 50.0-59.9, adult Z68.43 and Bipolar disorder, in partial remission, most recent episode depressed F31.75 [place] [address] [address] Mar, Diabetes E11.9 ; Pure hypercholesterolem ia E78.00 ; Essential hypertension I10 ; Nausea with vomiting, unspecified R11.2 and Headache, unspecified headache type R51 [place] [address] [address] Mar, Bipolar I disorder, most recent episode (or current) mixed, moderate F31.62 [place] [address] [address] Mar, Bipolar I disorder, most recent episode (or current) mixed, moderate F31.62 [place] [address] [address] Mar, Chronic pain G89.29 [place] [address] [address] Mar, Bipolar I disorder, most recent episode (or current) mixed, moderate F31.62 [place] [address] [address] Feb, Bipolar I disorder, most recent episode (or current) mixed, moderate F31.62 [place] [address] [address] Feb, Chronic pain G89.29 [place] [address] [address] Feb, Decubitus ulcer of right foot, stage 3 L 89.893 and BMI 50.0-59.9, adult Z68.43 [place] [address] [address] Feb, Bipolar I disorder, most recent episode (or current) mixed, moderate F31.62 [place] [address] [address] Feb, [place] [address] [address] January, [place] [address] [address] January, Chronic pain G89.29 [place] [address] [address] January, Bipolar I disorder, most recent episode (or current) mixed, moderate F31.62 [place] [address] [address] January, Bipolar I disorder, most recent episode (or current) mixed, moderate F31.62 [place] [address] [address] Dec, Bipolar I disorder, most recent episode (or current) mixed, moderate F31.62 and BMI 50.0-59.9, adult Z68.43 [place] [address] [address] Dec, Bipolar I disorder, most recent episode (or current) mixed, moderate F31.62 [place] [address] [address] Dec, Chronic pain G89.[address] [address] Dec, DM neuro manif type II E11.49 ; Right fl ank pain R10.9 ; long term 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 Z79.891 ; Encounter for medication monitoring Z51.81 and BMI 50.0-59.9, adult Z68.43 [place] [address] [address] Dec, Bipolar I disorder, most recent episode (or current) mixed, moderate F31.62 [place] [address] [address] Nov, Bipolar I disorder, most recent episode (or current) mixed, moderate F31.62 [place] [address] [address] Nov, Chronic pain G89.29 [place] [address] [address] Nov, Bipolar I disorder, most recent episode (or current) mixed, moderate F31.[address] [address] Nov, Hypokalemia E87.6 [place] [address] [address] Nov, Bipolar I disorder, most recent episode (or current) mixed, moderate F31.62 [place] [address] [address] Oct, Chronic pain G89.29 [facility] [place] [address] [address] Oct, BMI 50.0-59.9, adult Z68.43 and Bipolar I disorder, most recent episode (or current) mixed, moderate F31.62 [place] [address] [address] Oct, Bipolar I disorder, most recent episode (or current) mixed, moderate F31.62 [place] [address] [address] Oct, [place] [address] [address] Oct, Hypokalemia E87.6 [place] [address] [address] Oct, DM neuro manif type II E11.49 [place] [address] [address] Oct, Bipolar I disorder, most recent episode (or current) mixed, moderate F31.62 [place] [address] [address] Oct, Bipolar I disorder, most recent episode (or current) mixed, moderate F31.62 [place] [address] [address] Oct, Hyperkalemia E87.5 ; Falling R29.6 ; BMI 50.0-59.9, adult Z68.43 and Acute left ankle pain M25.572 [place] [address] [address] Oct, DM neuro manif type II E11.49 [place] [address] [address] Oct, [address] [place] [address] Sep, Chronic pain G89.29 [place] [address] [address] Sep, [facility] [place] [address] [address] Sep, Bilateral primary osteoarthritis of knee M17.0 [place] [address] [address] Sep, Generalized edema R60.1 [place] [address] [address] Sep, Bipolar I disorder, most recent episode (or current) mixed, moderate F31.62 [place] [address] [address] Sep, Hypoxia R09.02 ; Other hypervolemia E87. 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 ; Anemia of chronic illness D63.8 and BMI 50.0-59.9, adult Z68.43 [place] [address] [address] Sep, [place] [address] [address] Sep, Bipolar I disorder, most recent episode (or current) mixed, moderate F31.62 [place] [address] [address] Aug, Chronic pain G89.29 [place] [address] [address] Aug, Generalized edema R60.1 [place] [address] [address] Aug, [place] [address] [address] Aug, [place] [address] [address] 14 Aug, 2017 Bipolar I disorder, most recent episode (or current) mixed, moderate F31.62 [place] [address] [place] [address] Aug, Bipolar I disorder, most recent episode (or current) mixed, moderate F31.62 [place] [address] [address] Aug, Chronic pain G89.[address] [address] Jul, Bipolar I disorder, most recent episode (or current) mixed, moderate F31.[address] [address] Jul, Bipolar I disorder, most recent episode (or current) mixed, moderate F31.62 and BMI 60.0-69.9, adult Z68.[address] [address] Jul, Bipolar I disorder, most recent episode (or current) mixed, moderate F31.[address] [address] Jul, Chronic pain G89.[address] [address] Jul, Bipolar I disorder, most recent episode (or current) mixed, moderate F31.62 [place] [address] [address] Jun, Polyneuropathy associated with underlyin g disease G63 and Diabetes E11.[address] [address] Jun, Bipolar I disorder, most recent episode (or current) mixed, moderate F31.[address] [address] Jun, Chronic pain G89.29 [place] [address] [address] 27 May, 2017 Bipolar I disorder, most recent episode (or current) mixed, moderate F31.62 [place] [address] [address] 21 May, 2017 Bipolar I disorder, most recent episode (or current) mixed, moderate F31.62 [place] [address] [address] 20 May, 2017 Diabetic polyneuropathy associated with type 2 diabetes mellitus E11.42 [place] [address] [address] 18 May, 2017 Bipolar I disorder, most recent episode (or current) mixed, moderate F31.62 [place] [address] [address] 13 May, 2017 Bipolar I disorder, most recent episode (or current) mixed, moderate F31.62 [place] [address] [address] 12 May, 2017 Chronic pain G89.29 [place] [address] [address] 30 Apr, 2017 Bipolar I disorder, most recent episode (or current) mixed, moderate F31.62 [place] [address] [address] Apr, [place] [address] [address] Apr, Chronic pain G89.29 and DM neuro manif t ype II E11.49 [place] [address] [address] Apr, [place] [address] [address] 16 Apr, 2017 Bipolar I disorder, most recent episode (or current) mixed, moderate F31.62 [place] [address] [address] Apr, Chronic pain G89.29 [facility] [place] [address] [address] Apr, Iliotibial band syndrome, left M76.32 [facility] [place] [address] [address] Apr, Bipolar I disorder, most recent episode (or current) mixed, moderate F31.62 [facility] [place] [address] [address] Mar, Bipolar I disorder, most recent episode (or current) mixed, moderate F31.62 [facility] [place] [address] [address] Mar, Bipolar I disorder, most recent episode (or current) mixed, moderate F31.62 [place] [address] [address] Mar, [facility] [place] [address] [address] Mar, Bipolar I disorder, most recent episode (or current) mixed, moderate F31.62 [facility] [place] [address] [address] Mar, Chronic pain G89.29 [facility] [place] [address] [address] Mar, Bipolar I disorder, most recent episode (or current) mixed, moderate F31.62 [facility] [place] [address] [address] Mar, Bipolar I disorder, most recent episode (or current) mixed, moderate F31.62 [facility] [place] [address] [address] Mar, Acute pain of left knee M25.562 ; Left h ip pain M25.552 ; Generalized edema R60.1 and Tongue swelling R22.0 [facility] [place] [address] [address] Mar, [place] [address] [place] [id number] [place] [address] Feb, Chronic pain G89.29 [facility] [place] [address] [address] Feb, Diabetes E11.9 [facility] [place] [facility] [id number] [place] [address] January, Chronic pain G89.29 [facility] [place] [address] [address] January, [facility] [place] [address] [address] January, Bipolar I disorder, most recent episode (or current) mixed, moderate F31.62 [place] [facility] [id number] [place] [address] Dec, Bipolar I disorder, most recent episode (or current) mixed, moderate F31.62 [address] [address] [address] Dec, Chronic pain G89.29 [facility] [place] [address] [address] Dec, Bipolar I disorder, most recent episode (or current) mixed, moderate F31.62 [place] [id number] [place] [address] Dec, Diabetes E11.9 ; Essential hypertension I10 ; Chronic pain G89.29 and Morbid obesity E66.01 [facility] [place] [id number] [place] [address] Dec, [facility] [place] [address] [address] Dec, Bipolar I disorder, most recent episode (or current) mixed, moderate F31.62 [address] [address] [address] Dec, Bipolar I disorder, most recent episode (or current) mixed, moderate F31.62 [place] [address] [address] Nov, Chronic pain G89.29 [facility] [place] [address] [address] Nov, Bipolar I disorder, most recent episode (or current) mixed, moderate F31.62 [facility] [place] [address] [address] Nov, [facility] [place] [address] [address] Nov, Bipolar I disorder, most recent episode (or current) mixed, moderate F31.62 [place] [address] [address] Nov, Bipolar I disorder, most recent episode (or current) mixed, moderate F31.62 [place] [address] [address] Nov, [facility] [place] [address] [address] Nov, [facility] [place] [address] [address] Nov, [facility] [place] [address] [address] Oct, Chronic pain G89.29 [facility] [place] [address] [address] Oct, Bipolar I disorder, most recent episode (or current) mixed, moderate F31.62 [facility] [place] [address] [address] Oct, [facility] [place] [address] [address] Oct, Chronic pain G89.29 ; Diabetes E11.9 ; A nxiety F41.9 and 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 [facility] [place] [address] [address] Oct, [facility] [place] [address] [address] Oct, Diabetes E11.9 [facility] [place] [address] [address] Oct, Bipolar I disorder, most recent episode (or current) mixed, moderate F31.62 [facility] [place] [address] [address] Sep, Chronic pain G89.29 [facility] [place] [address] [address] Sep, Chronic pain G89.29 [place] [address] [address] Aug, Chronic pain G89.29 [place] [address] [address] Jul, [facility] [place] [address] [address] Jul, Diabetes E11.9 [facility] [place] [address] [address] Jul, Chronic pain G89.29 [facility] [place] [address] [address] Jul, Bipolar I disorder, most recent episode (or current) mixed, moderate F31.62 [place] [address] [address] Jun, Bipolar I disorder, most recent episode (or current) mixed, moderate F31.62 [place] [address] [address] Jun, [place] [address] [address] Jun, Bipolar I disorder, most recent episode (or current) mixed, moderate F31.62 [place] [address] [address] May, Insomnia, unspecified type G47.00 [facility] [place] [address] [address] May, Bipolar I disorder, most recent episode (or current) mixed, moderate F31.62 [facility] [place] [address] [address] May, [place] [address] [address] May, Bipolar I disorder, most recent episode (or current) mixed, moderate F31.62 [place] [address] [address] May, Diabetes E11.9 and Essential hypertensio n I10 [place] [address] [address] Apr, Chronic pain G89.29 [place] [address] [address] Apr, Bipolar I disorder, most recent episode (or current) mixed, moderate F31.62 [place] [address] [address] Apr, [place] [address] [address] Apr, [place] [address] [address] Mar, Chronic pain G89.29 ; Headache, unspecif ied headache type R51 ; Neuropathy G62.9 ; Pain of right hip joint M25.551 and Essential hypertension I10 [place] [address] [address] Mar, Chronic pain G89.29 [place] [address] [address] Mar, Bipolar I disorder, most recent episode (or current) mixed, moderate F31.62 [place] [address] [address] Feb, Bipolar I disorder, most recent episode (or current) mixed, moderate F31.62 and Insomnia, unspecified type G47.00 [place] [address] [address] Feb, Chronic pain G89.29 [facility] [place] [address] [address] Feb, Bipolar I disorder, most recent episode (or current) mixed, moderate F31.62 [place] [address] [address] January, Bipolar I disorder, most recent episode (or current) mixed, moderate F31.62 [place] [address] [address] January, Chronic pain G89.29 [place] [address] [address] January, Chronic pain G89.29 and Essential hypert ension I10 [place] [address] [address] [address] January, Bipolar I disorder, most recent episode (or current) mixed, moderate F31.62 [place] [address] [address] Dec, [place] [address] [address] Dec, [place] [address] [address] Dec, [place] [address] [address] Dec, [place] [address] [address] Nov, Reactive airway disease J45.909 [place] [address] [address] Nov, [place] [address] [address] Nov, 2015 [address] [address] Nov, [place] [address] [address] Nov, [place] [address] [address] Nov, Onychomycosis B35.1 ; Hammertoe M20.40 ; Clint or callus L84 and DM neuro manif type II E11.49 [place] [address] [address] Nov, Chronic pain G89.29 ; Leukocytosis D72.8 29 and Diabetes E11.9 [place] [address] [address] Nov, [place] [address] [address] Oct, Bronchitis J40 [address] [address] [address] Oct, [place] [address] [address] Oct, [place] [address] [address] Oct, Mastoiditis, unspecified laterality H70. 90 and Type 2 diabetes mellitus with complication E11.8 [place] [address] [address] Sep, [place] [address] [address] Sep, Dysuria R30.0 ; Cough R05 ; Benign prost atic hyperplasia with lower urinary tract symptoms, unspecified morphology N40.1 ; Hypokalemia E87.6 and Eustachian tube dysfunction, unspecified laterality H69.80 [place] [address] [address] Sep, Moderate mixed bipolar I disorder F31.62 [facility] [place] [address] [address] Sep, Hypokalemia E87.6 [facility] [place] [address] [address] Sep, [facility] [place] [address] [address] Sep, Upper respiratory tract infection, unspe cified type J06.9 [facility] [place] [address] [address] Aug, [facility] [place] [address] [address] Aug, Dysuria R30.0 [facility] [place] [address] [address] Aug, [facility] [place] [address] [address] Jul, [facility] [place] [address] [address] Jul, [facility] [place] [address] [address] Jul, [facility] [place] [address] [address] Jul, [facility] [place] [address] [address] Jun, [facility] [place] [address] [address] Jun, [facility] [place] [address] [address] Jun, [facility] [place] [address] [address] May, [facility] [place] [address] [address] May, Bipolar I disorder, most recent episode (or current) mixed, moderate 296.62 [facility] [address] [address] May, [facility] [place] [address] [id number] May, Bipolar I disorder, most recent episode (or current) mixed, moderate 296.62 and Major depressive disorder, recurrent episode, severe, specified as with psychotic behavior 296.34 [facility] [place] [address] [address] May, Bipolar I disorder, most recent episode (or current) mixed, moderate 296.62 [facility] [place] [address] [address] May, [facility] [place] [address] [address] Apr, [facility] [place] [address] [address] Apr, [facility] [place] [address] [address] Apr, Unspecified disorder of kidney and urete r 593.9 and Diabetes mellitus type 2, uncontrolled 250.02 [facility] [place] [address] [address] Apr, [facility] [place] [address] [address] Apr, [facility] [place] [address] [address] Apr, [facility] [place] [address] [address] Apr, [facility] [place] [address] [address] Apr, Diabetes mellitus type II, uncontrolled 250.02 [facility] [place] [address] [address] Apr, [facility] [place] [address] [address] Mar, [facility] [place] [address] [address] Mar, [facility] [place] [address] [address] Mar, [facility] [place] [address] [address] Mar, Major depressive disorder, recurrent epi sode, severe, specified as with psychotic behavior 296.34 and Bipolar I disorder, most recent episode (or current) mixed, moderate 296.62 [facility] [place] [address] [address] Mar, Diabetes 250.00 ; Anuria 788.5 ; Nausea and vomiting 787.01 and Diarrhea 787.91 [facility] [place] [address] [address] Mar, Diabetes 250.00 [facility] [place] [address] [address] Mar, [facility] [place] [address] [address] Mar, Diabetes 250.00 [facility] [place] [address] [address] Mar, [facility] [place] [address] [address] Mar, [facility] [place] [address] [address] Mar, [facility] [place] [address] [address] Mar, [facility] [place] [address] [address] Mar, Bipolar I disorder, most recent episode (or current) mixed, moderate 296.62 and Major depressive disorder, recurrent episode, severe, specified as with psychotic behavior 296.34 [facility] [place] [address] [address] Mar, Magnesium deficiency 275.2 ; Hypokalemia 276.8 ; Nausea & vomiting 787.01 and Diabetes mellitus type 2, uncontrolled 250.02 [address] [address] Feb, [address] [address] Feb, Bipolar I disorder, most recent episode (or current) mixed, moderate 296.62 [address] [address] [address] Feb, Nausea and vomiting 787.01 ; Left elbow pain 719.42 ; Anuria 788.5 and Diabetes 250.[address] [address] Feb, [address] [address] Feb, Hypopotassemia 276.8 and Hypokalemia [address] [address] Feb, Hypopotassemia 276.8 and Hypokalemia [address] [address] Feb, Seborrheic keratoses 702.[address] [address] Feb, Hypopotassemia 276.8 and Low magnesium l evels 275.2 [address] [address] [address] January, [address] [address] January, [address] [address] January, [address] [address] January, Scalp lesion 709.9 [facility] [id number] [place] [address] January, [facility] [place] [id number] [place] [address] Dec, Tear of medial cartilage or meniscus of knee, current 836.0 and 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 [facility] [id number] [place] [address] Dec, [facility] [id number] [place] [address] Dec, [facility] [id number] [place] [address] Dec, Squamous cell carcinoma, 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 42 [facility] [id number] [place] [address] 14 Dec, 2014 [facility] [place] [id number] [place] [address] Dec, [facility] [place] [id number] [place] [address] Nov, [facility] [place] [id number] [place] [address] Nov, [facility] [place] [id number] [place] [address] Nov, [facility] [place] [id number] [place] [address] Nov, [facility] [place] [id number] [place] [address] Nov, [facility] [id number] [place] [address] Nov, [facility] [id number] [place] [address] Nov, [facility] [id number] [place] [address] Nov, [facility] [place] [id number] [place] [address] Nov, [facility] [address] [id number] [place] [address] Nov, [facility] [address] [id number] [place] [address] Nov, [facility] [address] [id number] [place] [address] Nov, [facility] [address] [id number] [place] [address] Oct, 2014 [facility] [address] [id number] [place] [address] Oct, 2014 [facility] [address] [id number] [place] [address] Oct, 2014 [facility] [address] [id number] [place] [address] Oct, 2014 [facility] [address] [id number] [place] [address] Oct, 2014 [facility] [address] [id number] [place] [address] Oct, [facility] [address] [id number] [place] [address] Oct, 2014 [facility] [address] [id number] [place] [address] Oct, [facility] [address] [id number] [place] [address] Oct, [facility] [address] [id number] [place] [address] Sep, [facility] [address] [id number] [place] [address] Sep, [facility] [address] [id number] [place] [address] Sep, [facility] [address] [id number] [place] [address] Sep, [facility] [address] [facility] [id number] [place] [address] Sep, [facility] [address] [id number] [place] [address] Sep, [facility] [address] [id number] [place] [address] Sep, [facility] [address] [id number] [place] [address] Sep, [facility] [address] [id number] [place] [address] Sep, [facility] [address] [id number] [place] [address] Sep, [facility] [address] [id number] [place] [address] Sep, [facility] [address] [id number] [place] [address] Sep, [facility] [address] [id number] [place] [address] Sep, [facility] [address] [id number] [place] [address] Sep, [facility] [address] [id number] [place] [address] Sep, [facility] [address] [id number] [place] [address] Sep, [facility] [address] [id number] [place] [address] Aug, [facility] [address] [id number] [place] [address] Aug, [facility] [address] [id number] [place] [address] Aug, [facility] [address] [id number] [place] [address] Aug, [facility] [address] [id number] [place] [address] Aug, [facility] [address] [facility] [id number] [facility] [place] [address] Aug, [facility] [address] [facility] [id number] [facility] [place] [address] Aug, [facility] [address] [id number] [place] [address] Aug, [facility] [address] [id number] [facility] [place] [address] Aug, [facility] [address] [facility] [id number] [place] [address] Aug, [facility] [address] [id number] [place] [address] Aug, [facility] [address] [place] [id number] Aug, [facility] [address] [id number] [facility] [place] [address] Aug, [facility] [address] [id number] [place] [address] Aug, [facility] [address] [id number] [place] [address] Aug, [facility] [address] [id number] [place] [address] Aug, [facility] [address] [id number] [place] [address] Aug, [facility] [address] [facility] [id number] [place] [address] Aug, [facility] [address] [facility] [id number] [place] [address] Aug, [facility] [address] [facility] [id number] [place] [address] Aug, [facility] [address] [id number] [place] [address] Aug, [facility] [address] [id number] [place] [address] 08 Aug, 2014 [facility] [address] [id number] [place] [address] Aug, [facility] [address] [id number] [place] [address] Aug, [facility] [address] [id number] [place] [address] Aug, [facility] [address] [id number] [place] [address] Aug, [facility] [address] [id number] [place] [address] Aug, [facility] [address] [id number] [place] [address] Aug, [facility] [address] [id number] [place] [address] Aug, [facility] [address] [id number] [place] [address] Aug, [facility] [address] [id number] [place] [address] Jul, [facility] [address] [id number] [place] [address] Jul, [facility] [address] [id number] [place] [address] Jul, [facility] [address] [id number] [place] [address] Jul, [facility] [address] [id number] [place] [address] Jul, [facility] [id number] [place] [address] Jul, [facility] [address] [id number] [place] [address] Jul, [facility] [address] [id number] [place] [address] Jul, [facility] [address] [id number] [place] [address] Jul, [facility] [address] [id number] [place] [address] Jul, [facility] [address] [id number] [place] [address] Jun, [facility] [address] [id number] [place] [address] Jun, [facility] [address] [id number] [place] [address] Jun, [facility] [address] [id number] [place] [address] Jun, [facility] [address] [id number] [place] [address] Jun, [facility] [address] [id number] [place] [address] Jun, [facility] [address] [id number] [place] [address] Jun, [facility] [address] [id number] [place] [address] Jun, [facility] [address] [id number] [place] [address] Jun, [facility] [address] [id number] [place] [place] [address] Jun, [facility] [place] [facility] [id number] [place] [address] 29 May, 2014 [facility] [place] [facility] [address] [id number] [place] [address] 29 Sep, 2013 [facility] [place] [facility] [address] [id number] [place] [address] 26 Sep, 2013 [facility] [place] [facility] [address] [id number] [place] [address] 26 Sep, 2013 [facility] [place] [facility] [address] [id number] [place] [address] 17 Sep, 2013 [facility] [place] [facility] [address] [id number] [facility] [place] [address] 17 May, 2013 [facility] [place] [facility] [address] [facility] [id number] [facility] [place] [address] 15 May, 2013 [facility] [place] [facility] [address] [facility] [id number] [facility] [place] [address] 15 May, 2013 [facility] [place] [facility] [address] [id number] [place] [address] 15 May, 2013 [facility] [place] [facility] [address] [facility] [id number] [facility] [place] [address] 15 May, 2013 [facility] [place] [facility] [address] [id number] [facility] [place] [address] 10 May, 2013 [facility] [place] [facility] [address] [id number] [place] [address] 10 May, 2013 [facility] [place] [facility] [address] [id number] [facility] [place] [address] 09 May, 2013 [facility] [place] [facility] [address] [facility] [id number] [facility] [place] [address] 09 May, 2013 [facility] [place] [facility] [address] [id number] [facility] [place] [address] 04 May, 2013 [facility] [place] [facility] [address] [facility] [id number] [place] [address] 04 May, 2013 [facility] [place] [facility] [address] [id number] [place] [address] Apr, 2013 [facility] [place] [facility] [address] [facility] [id number] [place] [address] Apr, 2013 [facility] [place] [facility] [address] [id number] [place] [address] Apr, 2013 [facility] [place] [facility] [address] [facility] [id number] [place] [address] Apr, 2013 [facility] [place] [facility] [address] [id number] [place] [address] Apr, 2013 [facility] [place] [facility] [address] [id number] [place] [address] Apr, [facility] [place] [facility] [address] [id number] [facility] [place] [address] Apr, [facility] [place] [facility] [address] [facility] [id number] [facility] [place] [address] Apr, [facility] [place] [facility] [address] [id number] [facility] [place] [address] Apr, [facility] [place] [facility] [address] [id number] [facility] [place] [address] Apr, [facility] [place] [facility] [address] [id number] [facility] [place] [address] Apr, [facility] [place] [facility] [address] [id number] [place] [address] Apr, [facility] [place] [facility] [address] [id number] [place] [address] Apr, [facility] [place] [facility] [address] [id number] [facility] [place] [address] Apr, [facility] [place] [facility] [address] [id number] [place] [address] Apr, [facility] [place] [facility] [address] [id number] [place] [address] Mar, [facility] [place] [facility] [address] [id number] [place] [address] Mar, [facility] [place] [facility] [address] [id number] [facility] [place] [address] Mar, [facility] [place] [facility] [address] [id number] [place] [address] Mar, [facility] [place] [facility] [address] [id number] [place] [address] Mar, [facility] [place] [facility] [address] [id number] [place] [address] Mar, [facility] [place] [facility] [address] [id number] [place] [address] Mar, [facility] [place] [facility] [address] [facility] [id number] [place] [address] Mar, 2013 [facility] [place] [facility] [address] [id number] [place] [address] Mar, 2013 [facility] [place] [facility] [address] [id number] [place] [address] Mar, 2013 [facility] [place] [facility] [address] [id number] [place] [address] Mar, 2013 [facility] [place] [facility] [address] [facility] [id number] [place] [address] Mar, 2013 [facility] [place] [facility] [address] [id number] [place] [address] Mar, 2013 [facility] [place] [facility] [address] [id number] [place] [address] Mar, 2013 [facility] [place] [facility] [address] [id number] [place] [address] Mar, 2013 [facility] [place] [facility] [address] [id number] [place] [address] Mar, 2013 [facility] [place] [facility] [address] [id number] [place] [address] Mar, 2013 [facility] [place] [facility] [address] [id number] [place] [address] Mar, 2013 [facility] [place] [facility] [address] [id number] [place] [address] Feb, [facility] [place] [facility] [address] [id number] [place] [address] Feb, [facility] [place] [facility] [address] [facility] [id number] [place] [address] Feb, [facility] [place] [facility] [address] [id number] [place] [address] Feb, [facility] [place] [facility] [address] [id number] [place] [address] Feb, [facility] [place] [facility] [address] [id number] [place] [address] Feb, [facility] [place] [facility] [address] [facility] [id number] [facility] [place] [address] Feb, [facility] [place] [facility] [address] [facility] [id number] [facility] [place] [address] Feb, [facility] [place] [facility] [address] [facility] [id number] [facility] [place] [address] Feb, [facility] [place] [facility] [address] [facility] [id number] [facility] [place] [address] Feb, [facility] [place] [facility] [address] [facility] [id number] [facility] [place] [address] Feb, [facility] [place] [facility] [address] [facility] [id number] [facility] [address] Feb, [facility] [place] [facility] [address] [id number] [place] [address] Feb, [facility] [place] [facility] [address] [id number] [facility] [place] [address] Feb, [facility] [place] [facility] [address] [facility] [id number] [place] [address] January, [facility] [place] [facility] [address] [id number] [facility] [address] January, [facility] [place] [facility] [address] [id number] [place] [address] January, [facility] [place] [facility] [address] [id number] [place] [address] January, [facility] [place] [facility] [address] [facility] [id number] [place] [address] January, [facility] [place] [facility] [address] [facility] [id number] [place] [address] January, [facility] [place] [facility] [address] [facility] [id number] [place] [address] January, [facility] [place] [facility] [address] [id number] [facility] [place] [address] January, [facility] [place] [facility] [address] [id number] [place] [address] January, [facility] [place] [facility] [address] [id number] [place] [address] January, [facility] [place] [facility] [address] [facility] [id number] [place] [address] January, [facility] [place] [facility] [address] [id number] [place] [address] January, [facility] [place] [facility] [address] [id number] [place] [address] January, [facility] [place] [facility] [address] [id number] [place] [address] January, [facility] [place] [facility] [address] [id number] [place] [address] Dec, [facility] [place] [facility] [address] [id number] [place] [address] Dec, [facility] [place] [facility] [address] [id number] [place] [address] Dec, [facility] [place] [facility] [address] [id number] [place] [address] Dec, [facility] [place] [facility] [address] [id number] [place] [address] Dec, [facility] [place] [facility] [address] [id number] [place] [address] Dec, [facility] [place] [facility] [address] [id number] [place] [address] Dec, [facility] [place] [facility] [address] [id number] [place] [address] Dec, [facility] [place] [facility] [address] [id number] [place] [address] Dec, [facility] [place] [facility] [address] [id number] [place] [address] Dec, [facility] [place] [facility] [address] [id number] [place] [address] Nov, [facility] [place] [facility] [address] [id number] [place] [address] Nov, [facility] [place] [facility] [address] [id number] [place] [address] Nov, [facility] [place] [facility] [address] [id number] [place] [address] Nov, [facility] [place] [facility] [address] [id number] [place] [address] Nov, [facility] [place] [facility] [address] [id number] [place] [address] Nov, [facility] [place] [facility] [address] [id number] [place] [address] Nov, [facility] [place] [facility] [address] [id number] [place] [address] Nov, [facility] [place] [facility] [address] [id number] [place] [address] Nov, [facility] [place] [facility] [address] [id number] [place] [address] Nov, [facility] [place] [facility] [address] [id number] [place] [address] Oct, [facility] [place] [facility] [address] [id number] [place] [address] Oct, [facility] [place] [facility] [address] [id number] [place] [address] Oct, [facility] [place] [facility] [address] [id number] [place] [address] Oct, [facility] [place] [facility] [address] [id number] [place] [address] Oct, [facility] [place] [facility] [address] [id number] [place] [address] Oct, [facility] [place] [facility] [address] [id number] [place] [address] 14 Oct, 2013 [facility] [place] [facility] [address] [id number] [place] [address] 14 Oct, 2013 [facility] [place] [facility] [address] [facility] [id number] [place] [address] Oct, [facility] [place] [facility] [address] [id number] [place] [address] Oct, [facility] [place] [facility] [address] [id number] [place] [address] Oct, [facility] [place] [facility] [address] [id number] [place] [address] Oct, [facility] [place] [facility] [address] [id number] [place] [address] Oct, [facility] [place] [facility] [address] [id number] [place] [address] Oct, [facility] [place] [facility] [address] [id number] [place] [address] Sep, [facility] [place] [facility] [address] [id number] [place] [address] Sep, [facility] [place] [facility] [address] [id number] [place] [address] Sep, [facility] [place] [facility] [address] [id number] [place] [address] Sep, [facility] [place] [facility] [address] [id number] [place] [address] Sep, [facility] [place] [facility] [address] [id number] [place] [address] Sep, [facility] [place] [facility] [address] [id number] [place] [address] Sep, [facility] [place] [facility] [address] [id number] [place] [address] Sep, [facility] [place] [facility] [address] [id number] [place] [address] Sep, [facility] [place] [facility] [address] [id number] [place] [address] Sep, [facility] [place] [facility] [address] [id number] [place] [address] Aug, [facility] [place] [facility] [address] [id number] [place] [address] Aug, [facility] [place] [facility] [address] [id number] [place] [address] Jul, [facility] [place] [facility] [address] [id number] [place] [address] Jul, [facility] [place] [facility] [address] [id number] [place] [address] Jul, [facility] [place] [facility] [address] [id number] [place] [address] Jul, [facility] [place] [facility] [address] [id number] [place] [address] Jul, [facility] [place] [facility] [address] [id number] [place] [address] Jul, [facility] [place] [facility] [address] [id number] [place] [address] Jul, [facility] [place] [facility] [address] [id number] [place] [address] Jul, [facility] [place] [facility] [address] [id number] [place] [address] Jul, [facility] [place] [facility] [address] [id number] [place] [address] Jul, [facility] [place] [facility] [address] [id number] [place] [address] Jul, [facility] [place] [facility] [address] [id number] [place] [address] Jul, [facility] [place] [facility] [address] [id number] [place] [address] Jul, [facility] [place] [facility] [address] [id number] [place] [address] Jul, [facility] [place] [facility] [address] [id number] [place] [address] Jul, [facility] [place] [facility] [address] [id number] [place] [address] Jul, [facility] [place] [facility] [address] [id number] [place] [address] Jul, [facility] [place] [facility] [address] [id number] [place] [address] Jul, [facility] [place] [facility] [address] [id number] [place] [address] Jul, 2012 [facility] [place] [facility] [address] [id number] [place] [address] Jun, 2012 [facility] [place] [facility] [address] [id number] [place] [address] Jun, 2012 [facility] [place] [facility] [address] [id number] [place] [address] Jun, 2012 [facility] [place] [facility] [address] [id number] [place] [address] Jun, 2012 [facility] [place] [facility] [address] [id number] [place] [address] Jun, [facility] [place] [facility] [address] [id number] [place] [address] Jun, 2012 [facility] [place] [facility] [address] [id number] [place] [address] Jun, 2012 [facility] [place] [facility] [address] [id number] [place] [address] Jun, 2012 [facility] [place] [facility] [address] [id number] [place] [address] Jun, 2012 [facility] [place] [facility] [address] [id number] [place] [address] Jun, 2012 [facility] [place] [facility] [address] [id number] [place] [address] Jun, 2012 [facility] [place] [facility] [address] [id number] [place] [address] May, 2012 [facility] [place] [facility] [address] [id number] [facility] [address] 25 May, 2012 [facility] [place] [facility] [address] [id number] [place] [address] 19 May, 2012 [facility] [place] [facility] [address] [facility] [id number] [place] [address] 17 May, 2012 [facility] [place] [facility] [address] [id number] [place] [address] 11 May, 2012 [facility] [place] [facility] [address] [id number] [place] [address] 10 May, 2012 [facility] [place] [facility] [address] [id number] [place] [address] 09 May, 2012 [facility] [place] [facility] [address] [id number] [place] [address] 05 May, 2012 [facility] [place] [facility] [address] [id number] [place] [address] Apr, [facility] [place] [facility] [address] [id number] [place] [address] Apr, [facility] [place] [facility] [address] [id number] [place] [address] Apr, [facility] [place] [facility] [address] [id number] [place] [address] Apr, [facility] [place] [facility] [address] [id number] [place] [address] Apr, [facility] [place] [facility] [address] [id number] [place] [address] Mar, [facility] [place] [facility] [address] [id number] [place] [address] Mar, [facility] [place] [facility] [address] [id number] [place] [address] Mar, [facility] [place] [facility] [address] [id number] [place] [address] Mar, [facility] [place] [facility] [address] [id number] [place] [address] Mar, [facility] [place] [facility] [address] [id number] [place] [address] Mar, [facility] [place] [facility] [address] [id number] [place] [address] Mar, [facility] [place] [facility] [address] [id number] [place] [address] Mar, [facility] [place] [facility] [address] [id number] [place] [address] Feb, [facility] [place] [facility] [address] [id number] [place] [address] Feb, [facility] [place] [facility] [address] [id number] [place] [address] January, [facility] [place] [facility] [address] [id number] [place] [address] January, [facility] [address] [id number] [place] [address] Dec, [facility] [address] [id number] [place] [address] Dec, [facility] [address] [id number] [place] [address] Nov, [facility] [address] [id number] [place] [address] Nov, [facility] [address] [id number] [place] [address] Nov, [facility] [address] [id number] [place] [address] Nov, [facility] [address] [id number] [place] [address] Oct, [facility] [address] [id number] [place] [address] Oct, [facility] [address] [id number] [place] [address] Oct, [facility] [address] [id number] [place] [address] 26 Oct, 2012 [facility] [address] [id number] [place] [address] 16 Oct, 2012 [facility] [address] [id number] [place] [address] 14 Oct, 2012 [facility] [address] [id number] [place] [address] 08 Oct, 2012 [facility] [address] [id number] [place] [address] 07 Oct, 2012 [facility] [address] [id number] [place] [address] Oct, [facility] [address] [id number] [place] [address] Sep, [facility] [address] [id number] [place] [address] Sep, [facility] [address] [id number] [place] [address] Sep, [facility] [address] [id number] [place] [address] Sep, [facility] [address] [id number] [place] [address] Sep, [facility] [address] [id number] [place] [address] Sep, [facility] [address] [id number] [place] [address] Sep, [facility] [address] [id number] [place] [address] Sep, [facility] [id number] [place] [address] Aug, [facility] [address] [id number] [place] [address] Aug, [facility] [address] [id number] [place] [address] Aug, [facility] [address] [id number] [place] [address] Aug, [facility] [address] [id number] [place] [address] Aug, [facility] [address] [id number] [place] [address] Aug, [facility] [address] [id number] [place] [address] Aug, [facility] [address] [id number] [place] [address] Aug, [facility] [address] [id number] [place] [address] Jul, [facility] [address] [id number] [place] [address] Jul, [facility] [address] [id number] [place] [address] Jul, [facility] [address] [id number] [place] [address] Jul, [facility] [address] [id number] [place] [address] Jul, [facility] [address] [id number] [place] [address] Jul, [facility] [address] [id number] [place] [address] Jun, [facility] [address] [id number] [place] [address] Jun, [facility] [address] [id number] [place] [address] Jun, [facility] [address] [id number] [place] [address] Jun, [facility] [address] [id number] [place] [address] Jun, [facility] [address] [id number] [place] [address] Jun, [facility] [address] [facility] [id number] [place] [address] Jun, [facility] [address] [id number] [place] [address] Jun, [facility] [address] [id number] [place] [address] Jun, [facility] [address] [id number] [place] [address] May, [facility] [address] [facility] [id number] [place] [address] 24 May, 2012 [facility] [address] [id number] [place] [address] May, [facility] [address] [id number] [place] [address] Apr, [facility] [address] [id number] [place] [address] Apr, [facility] [address] [id number] [place] [address] Apr, [facility] [address] [id number] [place] [address] Apr, [facility] [address] [id number] [place] [address] Apr, [facility] [address] [id number] [place] [address] Apr, [facility] [address] [id number] [place] [address] Mar, [facility] [address] [id number] [place] [address] Mar, [facility] [address] [id number] [place] [address] Mar, [facility] [address] [id number] [place] [address] Mar, [facility] [facility] [address] [id number] [place] [address] 29 Feb, 2012 [facility] [address] [id number] [place] [address] Feb, [facility] [address] [id number] [place] [address] Feb, [facility] [address] [facility] [id number] [place] [address] Feb, [facility] [address] [facility] [id number] [place] [address] Feb, [facility] [address] [facility] [id number] [place] [address] January, [facility] [address] [facility] [id number] [place] [address] January, [facility] [address] [facility] [id number] [place] [address] January, [facility] [address] [facility] [id number] [place] [address] January, [facility] [address] [id number] [place] [address] January, [facility] [address] [facility] [id number] [place] [address] January, [facility] [address] [facility] [id number] [place] [address] Dec, [facility] [address] [facility] [id number] [place] [address] Dec, [facility] [address] [facility] [id number] [place] [address] Dec, [facility] [address] [facility] [id number] [place] [address] Dec, [facility] [address] [facility] [id number] [place] [address] Dec, [facility] [address] [facility] [id number] [place] [address] Nov, [facility] [address] [facility] [id number] [place] [address] 14 Nov, 2011 [facility] [address] [facility] [id number] [place] [address] 12 Nov, 2011 [facility] [address] [facility] [id number] [place] [address] 07 Nov, 2011 [facility] [address] [facility] [id number] [place] [address] 29 Oct, 2011 [facility] [address] [facility] [id number] [place] [address] 28 Oct, 2011 [facility] [address] [facility] [id number] [place] [address] 24 Oct, 2011 [facility] [address] [id number] [place] [address] 13 Oct, 2011 [facility] [id number] [place] [address] 08 Oct, 2011 [facility] [address] [facility] [id number] [place] [address] Sep, [facility] [address] [facility] [id number] [place] [address] Sep, [facility] [address] [id number] [place] [address] Sep, [facility] [address] [id number] [place] [address] Sep, [facility] [address] [facility] [id number] [place] [address] Sep, [facility] [address] [facility] [id number] [place] [address] Sep, [facility] [address] [facility] [id number] [place] [address] Aug, [facility] [address] [facility] [id number] [place] [address] Aug, [facility] [address] [facility] [id number] [place] [address] Aug, [facility] [address] [facility] [id number] [facility] [place] [address] Jul, [facility] [address] [id number] [place] [address] Jul, [facility] [address] [facility] [id number] [place] [address] Jul, [facility] [address] [facility] [id number] [place] [address] Jul, [facility] [address] [id number] [place] [address] Jun, [facility] [address] [id number] [place] [address] Jun, [facility] [address] [id number] [place] [address] Jun, [facility] [address] [id number] [place] [address] Jun, [facility] [address] [id number] [place] [address] Jun, [facility] [address] [id number] [place] [address] Jun, [facility] [address] [facility] [id number] [place] [address] Mar, [facility] [address] [facility] [id number] [place] [address] Dec, [facility] [address] [id number] [place] [address] Dec, [facility] [address] [id number] [place] [address] Nov, [facility] [address] [facility] [id number] [place] [address] 16 Nov, 2010 [facility] [address] [id number] [place] [address] Sep, [facility] [address] [id number] [place] [address] 31 Aug, 2010 [facility] [address] [id number] [place] [address] 29 Aug, 2010 [facility] [address] [id number] [place] [address] 29 Aug, 2010 [facility] [address] [id number] [place] [address] 29 Aug, 2010 [facility] [address] [id number] [place] [address] 27 Aug, 2010 [facility] [address] [id number] [place] [address] 14 Aug, 2010 [facility] [address] [id number] [place] [address] 08 Aug, 2010 [facility] [address] [id number] [place] [address] 08 Aug, 2010 [facility] [address] [id number] [place] [address] 07 Aug, 2010 [facility] [address] [id number] [place] [address] 06 Aug, 2010 [facility] [address] [id number] [place] [address] 06 Aug, 2010 [facility] [address] [id number] [place] [address] Aug, [facility] [address] [id number] [place] [address] 30 Jul, 2010 [facility] [address] [id number] [place] [address] 30 Jul, 2010 [facility] [address] [id number] [place] [address] 30 Jul, 2010 [facility] [address] [id number] [place] [address] 17 Jul, 2010 [facility] [address] [id number] [place] [address] 08 Jul, 2010 [facility] [address] [id number] [place] [address] Jul, [facility] [address] [id number] [place] [address] Jun, [facility] [address] [id number] [place] [address] Jun, [facility] [address] [id number] [place] [address] Jun, [facility] [address] [id number] [place] [address] Jun, [facility] [address] [id number] [place] [address] Apr, [facility] [address] [facility] [id number] [place] [address] Mar, [facility] [address] [facility] [id number] [place] [address] Feb, [facility] [address] [id number] [place] [address] January, [facility] [address] [id number] [place] [address] 15 Dec, 2009 [facility] [address] [id number] [place] [address] Nov, [facility] [address] [facility] [id number] [place] [address] Aug, [facility] [address] [id number] [place] [address] Aug, [facility] [address] [id number] [place] [address] Aug, [facility] [address] [id number] [place] [address] Jul, [facility] [address] [id number] [place] [address] Jul, [facility] [id number] [place] [address] Jul, [facility] [place] [address] [id number] [place] [address] Jun, [facility] [place] [address] [facility] [id number] [place] [address] Jun, [facility] [place] [id number] [place] [address] Jun, [facility] [place] [id number] [place] [address] Jun, [facility] [place] [address] [address] Jun, [facility] [place] [id number] [place] [address] Jun, [facility] [place] [id number] [place] [address] Apr, [facility] [place] [id number] [place] [address] Apr, [facility] [place] [id number] [place] [address] Feb, [facility] [place] [id number] [place] [address] January, [facility] [place] [address] [id number] [place] [address] Dec, IMMUNIZATIONS No Known Immunizations SOCIAL HISTORY [...] [facility] ([facility] ) Surgical History heart cath: CAD w/ [...] History inability to urinate 09/16/15 Hospitalization History [facility] inpatient mental health ea rly 2000's Hospitalization History hyperkalemia 10/2017 Hospitalization History fluid in lung
--- OUTSIDE RECORDS SUMMARY | 2020-03-01 17:04 | XMS REPORT ---
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 Name Role Phone ROSELINE LUIS Unavailable PROBLEMS Type Condition ICD9-CM Code BPA23-SS Code Onset Dates Condition S tatus SNOMED Code Problem DM neuro manif type II E11.49 Active 21293654 Problem Chronic pain G89.29 Active 8549225 1 Problem Diabetes E11.9 Active 59507966 Problem Reactive airway disease J45.909 Active 748409066606 Problem Leukocytosis D72.829 Active 6256640 06 Problem Insomnia, unspecified type G47.00 Act sharon 910112962 Problem Bipolar I disorder, most recent episode (or curr ent) mixed, moderate F31.62 Active 14630607 Problem Primary osteoarthritis of right knee M17.11 Active 004741193200219 Problem Cough R05 Active 20706986 Problem Pure hypercholesterolemia E78.00 Acti ve 928943966 Problem Dysuria R30.0 Active 87956609 Problem Benign prostatic hyperplasia with lower urinary tract symptoms, unspecified morphology N40.1 Active 72770 6007 Problem Eustachian tube dysfunction, unspecified laterality H69.80 Active 06775112 Problem Polyneuropathy associated with underlying disease G63 Active 435057473 Problem Diabetic polyneuropathy associated with type 2 d iabetes mellitus E11.42 Active 87519222 Problem Anemia of chronic illness D63.8 Acti ve 992591241 Problem Chronic lymphocytic leukemia C91.10 A ctive 35860576 Problem Bilateral primary osteoarthritis of knee M17.0 Active 490623653 Problem 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 Active 828277234 Problem Eye exam abnormal R93.8 Active 16 5082000 Problem Retinal edema H35.81 Active 972867 6 Problem Lymphocytosis D72.820 Active 975366 09 Problem Bipolar disorder, in partial remission, most rec ent episode depressed F31.75 Active 26267690 Problem Hypokalemia E87.6 Active 85503895 Problem Falling R29.6 Active 192297469 Problem Pressure ulcer of other site, stage 3 L89.893 Active 188174768 Problem Other iron deficiency anemia D50.8 A ctive 13870984 Problem Mild cognitive impairment G31.84 Acti ve 050352226 Problem Skin cancer C44.90 Active 01899533 7 Problem intermediate frame tender (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 Z79.4 Active 971395906 Problem Morbid obesity E66.01 Active 32256 6002 Problem Mood disorder F39 Active 671906 05 Problem Anxiety F41.9 Active 44564580 Problem Essential hypertension I10 Active 28812273 Problem Bipolar disorder F31.9 Active 137 06605 Problem Chronic diastolic (congestive) heart failure I50.3 2 Active 673397716 Problem Psychophysiological insomnia F51.04 A ctive 077968936 Problem Type 2 diabetes mellitus with diabetic neuropathy, uns pecified E11.40 Active 49285098 ALLERGIES No Information ENCOUNTERS Encounter Location Date Diagnosis [place] [address] [address] Oct, [facility] [address] [address] Sep, [facility] [address] [address] Sep, [facility] [address] [address] Sep, [facility] [address] [address] Sep, Mood disorder F39 [facility] [address] [address] Sep, [facility] [address] [address] Sep, Mood disorder F39 [facility] [address] [address] Sep, [facility] [address] [address] Aug, Mood disorder F39 [facility] [address] [place] [id number] [place] [address] Aug, [facility] [address] [place] [id number] [place] [address] Aug, [facility] [address] [place] [id number] [place] [address] Aug, [facility] [address] [address] Aug, [facility] [address] [address] Aug, [facility] [address] [place] [id number] [place] [address] Aug, [facility] [address] [address] Aug, [facility] [address] [address] Aug, Essential hypertension I10 [facility] [address] [address] Aug, Bipolar disorder, in partial remission, most recent episode depressed F31.75 and Mild cognitive impairment G31.84 [facility] [address] [address] Aug, Mood disorder F39 [facility] [address] [address] Aug, [facility] [address] [address] Aug, Bipolar disorder, in partial remission, most recent episode depressed F31.75 and Mild cognitive impairment G31.84 [facility] [address] [address] Jul, Bipolar disorder, in partial remission, most recent episode depressed F31.75 and Mild cognitive impairment G31.84 [facility] [address] [address] Jul, Psychophysiological insomnia F51.04 [facility] [address] [place] [address] [id number] [place] [address] Jul, [facility] [address] [place] [address] [id number] [place] [address] Jul, [facility] [address] [place] [address] [id number] [place] [address] Jul, [facility] [address] [place] [id number] [place] [address] Jul, [facility] [address] [place] [id number] [place] [address] Jul, [facility] [address] [place] [id number] [place] [address] Jul, [facility] [address] [place] [id number] [place] [address] Jul, Bipolar disorder, in partial remission, most recent episode depressed F31.75 and Mild cognitive impairment G31.84 [place] [address] [place] [id number] [place] [address] Jul, Chronic pain G89.29 ; Diabetes E11.9 ; E ssential hypertension I10 ; Ill feeling R68.89 ; Local infection of the skin and subcutaneous tissue, unspecified L08.9 and Other injury of unspecified body region, initial encounter T14.8XXA [place] [address] [place] [id number] [place] [address] Jun, Bipolar disorder, in partial remission, most recent episode depressed F31.75 and Mild cognitive impairment G31.84 [facility] [address] [place] [id number] [place] [address] Jun, [facility] [address] [address] Jun, Bipolar disorder, in partial remission, most recent episode depressed F31.75 and Mild cognitive impairment G31.84 [facility] [address] [place] [id number] [place] [address] Jun, Psychophysiological insomnia F51.04 [facility] [address] [place] [id number] [place] [address] Jun, Psychophysiological insomnia F51.04 ; Ch ronic pain G89.29 ; Bipolar I disorder, most recent episode (or current) mixed, moderate F31.62 ; 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 ; Polyneuropathy associated with underlying disease G63 ; Type 2 diabetes mellitus with diabetic neuropathy, unspecified E11.40 ; halfway (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 Z79.4 and Hyperglycemia R73.9 [place] [address] [address] Jun, Bipolar disorder, in partial remission, most recent episode depressed F31.75 and Mild cognitive impairment G31.[address] [address] Jun, [address] [address] Jun, Bipolar disorder F31.9 [place] [address] [address] May, Bipolar disorder, in partial remission, most recent episode depressed F31.75 and Mild cognitive impairment G31.84 [place] [address] [address] May, [address] [address] Apr, Chronic pain G89.29 and Bipolar disorder F31.[address] [address] Mar, Bipolar disorder F31.9 and Chronic pain G89.[address] [address] Feb, Bipolar disorder F31.[address] [address] Feb, Cellulitis of right upper extremity L03. 113 and Skin abrasion T14.8XXA [address] [place] [address] Feb, Bipolar disorder, in partial remission, most recent episode depressed F31.75 and Mild cognitive impairment G31.84 [facility] [address] [place] [id number] [place] [address] Feb, Chronic pain G89.29 [facility] [address] [address] Feb, Bipolar disorder, in partial remission, most recent episode depressed F31.75 and Mild cognitive impairment G31.84 [facility] [address] [address] January, Bipolar disorder, in partial remission, most recent episode depressed F31.75 and Mild cognitive impairment G31.84 [facility] [address] [address] January, Chronic pain G89.29 and Bipolar disorder F31.9 [facility] [address] [address] January, Bipolar disorder, in partial remission, most recent episode depressed F31.75 and Mild cognitive impairment G31.84 [facility] [address] [address] Dec, [facility] [address] [address] Dec, Chronic pain G89.29 and Bipolar disorder F31.9 [facility] [address] [address] Dec, Edema of both lower extremities R60.0 [facility] [address] [place] [id number] [place] [address] Dec, Bipolar disorder F31.9 [facility] [address] [address] Dec, Bipolar disorder, in partial remission, most recent episode depressed F31.75 and Mild cognitive impairment G31.84 [facility] [address] [address] Nov, [address] [address] Nov, Chronic pain G89.[address] [address] Nov, Bipolar disorder, in partial remission, most recent episode depressed F31.75 and Mild cognitive impairment G31.[address] [address] Nov, Bipolar disorder F31.[address] [address] 04 Nov, 2018 Encounter for Medicare annual [...] morphology N40.1 and Essential hypertension I10 [address] [address] Oct, Chronic pain G89.[address] [address] Oct, Diabetes E11.[address] [address] Oct, Bipolar I disorder, most recent episode (or current) mixed, moderate F31.62 and Mild cognitive impairment G31.[address] [address] Oct, Bipolar I disorder, most recent episode (or current) mixed, moderate F31.62 and Mild cognitive impairment G31.[address] [address] Sep, Bipolar I disorder, most recent episode (or current) mixed, moderate F31.62 and Mild cognitive impairment G31.84 [place] [address] [address] Sep, [place] [address] [address] Sep, Diabetes E11.9 ; Hypoxia R09.02 ; Hyperg lycemia R73.9 ; Therapeutic drug monitoring Z51.81 ; BMI 50.0-59.9, adult Z68.43 and Skin cancer C44.90 [place] [address] [address] Sep, Chronic pain G89.29 [place] [address] [address] Sep, Bipolar I disorder, most recent episode (or current) mixed, moderate F31.62 [place] [address] [address] Sep, [place] [address] [address] Sep, [place] [address] [address] Aug, Chronic pain G89.29 [place] [address] [address] Aug, Bipolar I disorder, most recent episode (or current) mixed, moderate F31.62 [place] [address] [address] Aug, Bipolar I disorder, most recent episode (or current) mixed, moderate F31.62 and Mild cognitive impairment G31.84 [place] [address] [address] Jul, [place] [address] [address] Jul, Chronic pain G89.29 [place] [address] [place] [id number] [place] [address] Jul, Bipolar I disorder, most recent episode (or current) mixed, moderate F31.62 and Mild cognitive impairment G31.84 [place] [address] [address] Jul, Bipolar I disorder, most recent episode (or current) mixed, moderate F31.62 and MCI (mild cognitive impairment) G31.84 [place] [address] [place] [id number] [place] [address] Jul, [place] [address] [address] Jul, [place] [address] [address] Jul, Bipolar I disorder, most recent episode (or current) mixed, moderate F31.62 [place] [id number] [place] [address] Jul, Chronic pain G89.29 [place] [address] [address] Jun, Bipolar I disorder, most recent episode (or current) mixed, moderate F31.62 [place] [address] [place] [id number] [place] [address] Jun, Pre-procedure lab exam Z01.812 [place] [id number] [place] [address] Jun, [address] [place] [address] Jun, [address] [address] Jun, [address] [address] Jun, Forgetfulness R68.89 ; Pre-syncope R55 ; Localized edema R60.0 ; Other iron deficiency anemia D50.8 and BMI 50.0-59.9, adult Z68.43 [place] [address] [address] Jun, Chronic pain G89.29 [place] [address] [address] Jun, Chronic pain G89.29 [place] [address] [address] Jun, Bipolar I disorder, most recent episode (or current) mixed, moderate F31.62 [place] [address] [address] May, Chronic pain G89.29 [place] [address] [address] Apr, [place] [address] [address] Apr, Chronic pain G89.29 [place] [address] [address] Apr, Primary osteoarthritis of right knee M17 .11 [place] [address] [address] Mar, [place] [address] [address] Mar, BMI 50.0-59.9, adult Z68.43 and Bipolar disorder, in partial remission, most recent episode depressed F31.75 [place] [address] [address] Mar, Diabetes E11.9 ; Pure hypercholesterolem ia E78.00 ; Essential hypertension I10 ; Nausea with vomiting, unspecified R11.2 and Headache, unspecified headache type R51 [place] [address] [address] Mar, Bipolar I disorder, most recent episode (or current) mixed, moderate F31.62 [place] [address] [address] Mar, Bipolar I disorder, most recent episode (or current) mixed, moderate F31.62 [place] [address] [address] Mar, Chronic pain G89.29 [facility] [address] [address] Mar, Bipolar I disorder, most recent episode (or current) mixed, moderate F31.62 [place] [address] [address] Feb, Bipolar I disorder, most recent episode (or current) mixed, moderate F31.62 [place] [address] [address] Feb, Chronic pain G89.29 [place] [address] [address] Feb, Decubitus ulcer of right foot, stage 3 L 89.893 and BMI 50.0-59.9, adult Z68.43 [place] [address] [address] Feb, Bipolar I disorder, most recent episode (or current) mixed, moderate F31.62 [place] [address] [address] Feb, [place] [address] [address] January, [place] [address] [address] January, Chronic pain G89.29 [facility] [address] [address] January, Bipolar I disorder, most recent episode (or current) mixed, moderate F31.62 [place] [address] [address] January, Bipolar I disorder, most recent episode (or current) mixed, moderate F31.62 [place] [address] [address] Dec, Bipolar I disorder, most recent episode (or current) mixed, moderate F31.62 and BMI 50.0-59.9, adult Z68.43 [place] [address] [address] Dec, Bipolar I disorder, most recent episode (or current) mixed, moderate F31.62 [place] [address] [address] Dec, Chronic pain G89.29 [place] [address] [address] Dec, DM neuro manif type II E11.49 ; Right fl ank pain R10.9 ; intermediate frame tender 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 Z79.891 ; Encounter for medication monitoring Z51.81 and BMI 50.0-59.9, adult Z68.43 [place] [address] [address] Dec, Bipolar I disorder, most recent episode (or current) mixed, moderate F31.62 [place] [address] [address] Nov, Bipolar I disorder, most recent episode (or current) mixed, moderate F31.62 [place] [address] [address] Nov, Chronic pain G89.29 [place] [address] [address] Nov, Bipolar I disorder, most recent episode (or current) mixed, moderate F31.62 [place] [address] [address] Nov, Hypokalemia E87.6 [place] [address] [address] Nov, Bipolar I disorder, most recent episode (or current) mixed, moderate F31.62 [place] [address] [address] Oct, Chronic pain G89.29 [place] [address] [address] Oct, BMI 50.0-59.9, adult Z68.43 and Bipolar I disorder, most recent episode (or current) mixed, moderate F31.62 [place] [address] [address] Oct, Bipolar I disorder, most recent episode (or current) mixed, moderate F31.62 [place] [address] [address] Oct, [place] [address] [address] Oct, Hypokalemia E87.6 [place] [address] [address] Oct, DM neuro manif type II E11.49 [place] [address] [address] Oct, Bipolar I disorder, most recent episode (or current) mixed, moderate F31.62 [place] [address] [address] Oct, Bipolar I disorder, most recent episode (or current) mixed, moderate F31.62 [place] [address] [address] Oct, Hyperkalemia E87.5 ; Falling R29.6 ; BMI 50.0-59.9, adult Z68.43 and Acute left ankle pain M25.572 [place] [address] [address] Oct, DM neuro manif type II E11.49 [place] [address] [address] Oct, [place] [address] [address] Sep, Chronic pain G89.29 [place] [address] [address] Sep, [place] [address] [address] Sep, Bilateral primary osteoarthritis of knee M17.[address] [address] Sep, Generalized edema R60.1 [place] [address] [address] Sep, Bipolar I disorder, most recent episode (or current) mixed, moderate F31.62 [place] [address] [address] Sep, Hypoxia R09.02 ; Other hypervolemia E87. 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 ; Anemia of chronic illness D63.8 and BMI 50.0-59.9, adult Z68.43 [place] [address] [address] Sep, [address] [address] Sep, Bipolar I disorder, most recent episode (or current) mixed, moderate F31.62 [place] [address] [address] Aug, Chronic pain G89.29 [place] [address] [address] Aug, Generalized edema R60.1 [place] [address] [address] Aug, [place] [address] [address] Aug, [place] [address] [address] 14 Aug, 2017 Bipolar I disorder, most recent episode (or current) mixed, moderate F31.62 [place] [address] [place] [address] Aug, Bipolar I disorder, most recent episode (or current) mixed, moderate F31.62 [place] [address] [place] [address] Aug, Chronic pain G89.29 [place] [address] [place] [address] Jul, Bipolar I disorder, most recent episode (or current) mixed, moderate F31.62 [place] [address] Jul, Bipolar I disorder, most recent episode (or current) mixed, moderate F31.62 and BMI 60.0-69.9, adult Z68.44 [place] [address] Jul, Bipolar I disorder, most recent episode (or current) mixed, moderate F31.62 [place] [address] Jul, Chronic pain G89.29 [place] [address] Jul, Bipolar I disorder, most recent episode (or current) mixed, moderate F31.62 [place] [address] [place] [address] Jun, Polyneuropathy associated with underlyin g disease G63 and Diabetes E11.9 [place] [address] Jun, Bipolar I disorder, most recent episode (or current) mixed, moderate F31.62 [place] [address] Jun, Chronic pain G89.29 [place] [id number] [place] [address] 27 May, 2017 Bipolar I disorder, most recent episode (or current) mixed, moderate F31.62 [place] [address] [address] 21 May, 2017 Bipolar I disorder, most recent episode (or current) mixed, moderate F31.62 [place] [address] [address] 20 May, 2017 Diabetic polyneuropathy associated with type 2 diabetes mellitus E11.42 [place] [address] [address] 18 May, 2017 Bipolar I disorder, most recent episode (or current) mixed, moderate F31.62 [place] [address] [address] 13 May, 2017 Bipolar I disorder, most recent episode (or current) mixed, moderate F31.62 [place] [address] [address] 12 May, 2017 Chronic pain G89.29 [place] [address] [address] 30 Apr, 2017 Bipolar I disorder, most recent episode (or current) mixed, moderate F31.62 [place] [address] [address] Apr, [place] [address] [address] Apr, Chronic pain G89.29 and DM neuro manif t ype II E11.49 [facility] [address] [address] Apr, [place] [address] [address] 16 Apr, 2017 Bipolar I disorder, most recent episode (or current) mixed, moderate F31.62 [place] [address] [address] 14 Apr, 2017 Chronic pain G89.29 [facility] [address] [address] Apr, Iliotibial band syndrome, left M76.32 [facility] [address] [address] Apr, Bipolar I disorder, most recent episode (or current) mixed, moderate F31.62 [facility] [address] [address] Mar, Bipolar I disorder, most recent episode (or current) mixed, moderate F31.62 [facility] [address] [address] Mar, Bipolar I disorder, most recent episode (or current) mixed, moderate F31.62 [facility] [address] [address] Mar, [facility] [address] [address] Mar, Bipolar I disorder, most recent episode (or current) mixed, moderate F31.62 [facility] [address] [address] Mar, Chronic pain G89.29 [facility] [address] [address] Mar, Bipolar I disorder, most recent episode (or current) mixed, moderate F31.62 [facility] [address] [address] Mar, Bipolar I disorder, most recent episode (or current) mixed, moderate F31.62 [facility] [address] [address] Mar, Acute pain of left knee M25.562 ; Left h ip pain M25.552 ; Generalized edema R60.1 and Tongue swelling R22.0 [facility] [address] [address] Mar, [facility] [address] [address] Feb, Chronic pain G89.29 [facility] [address] [address] Feb, Diabetes E11.9 [facility] [address] [address] January, Chronic pain G89.29 [place] [address] [address] January, [place] [address] [address] January, Bipolar I disorder, most recent episode (or current) mixed, moderate F31.62 [place] [address] [address] Dec, Bipolar I disorder, most recent episode (or current) mixed, moderate F31.62 [place] [address] [address] Dec, Chronic pain G89.29 [place] [address] [address] Dec, Bipolar I disorder, most recent episode (or current) mixed, moderate F31.62 [place] [address] [address] Dec, Diabetes E11.9 ; Essential hypertension I10 ; Chronic pain G89.29 and Morbid obesity E66.01 [place] [address] [address] Dec, [place] [address] [address] Dec, Bipolar I disorder, most recent episode (or current) mixed, moderate F31.62 [place] [address] [address] Dec, Bipolar I disorder, most recent episode (or current) mixed, moderate F31.62 [place] [address] [address] Nov, Chronic pain G89.29 [facility] [address] [address] Nov, Bipolar I disorder, most recent episode (or current) mixed, moderate F31.62 [facility] [address] [address] Nov, [facility] [address] [address] Nov, Bipolar I disorder, most recent episode (or current) mixed, moderate F31.62 [facility] [address] [address] Nov, Bipolar I disorder, most recent episode (or current) mixed, moderate F31.62 [facility] [address] [address] Nov, [facility] [address] [address] Nov, [facility] [address] [address] Nov, [facility] [address] [address] Oct, Chronic pain G89.29 [facility] [address] [address] Oct, Bipolar I disorder, most recent episode (or current) mixed, moderate F31.62 [facility] [address] [address] Oct, [facility] [address] [address] Oct, Chronic pain G89.29 ; Diabetes E11.9 ; A nxiety F41.9 and 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 [facility] [address] [address] Oct, [place] [address] [address] Oct, Diabetes E11.9 [facility] [address] [place] [id number] Oct, Bipolar I disorder, most recent episode (or current) mixed, moderate F31.62 [place] [address] [address] Sep, Chronic pain G89.29 [facility] [address] [address] Sep, Chronic pain G89.29 [place] [address] [address] Aug, Chronic pain G89.29 [place] [address] [address] Jul, [place] [address] [address] Jul, Diabetes E11.9 [facility] [address] [address] Jul, Chronic pain G89.29 [place] [address] [address] Jul, Bipolar I disorder, most recent episode (or current) mixed, moderate F31.62 [place] [address] [address] Jun, Bipolar I disorder, most recent episode (or current) mixed, moderate F31.62 [place] [address] [address] Jun, [place] [address] [address] Jun, Bipolar I disorder, most recent episode (or current) mixed, moderate F31.62 [place] [address] [address] May, Insomnia, unspecified type G47.00 [facility] [address] [address] May, Bipolar I disorder, most recent episode (or current) mixed, moderate F31.62 [facility] [address] [address] May, [facility] [address] [address] May, Bipolar I disorder, most recent episode (or current) mixed, moderate F31.62 [place] [address] [address] May, Diabetes E11.9 and Essential hypertensio n I10 [place] [address] [address] Apr, Chronic pain G89.29 [place] [address] [address] Apr, Bipolar I disorder, most recent episode (or current) mixed, moderate F31.62 [place] [address] [address] Apr, [place] [address] [address] Apr, [place] [address] [address] Mar, Chronic pain G89.29 ; Headache, unspecif ied headache type R51 ; Neuropathy G62.9 ; Pain of right hip joint M25.551 and Essential hypertension I10 [facility] [address] [address] Mar, Chronic pain G89.29 [facility] [address] [address] Mar, Bipolar I disorder, most recent episode (or current) mixed, moderate F31.62 [facility] [address] [address] Feb, Bipolar I disorder, most recent episode (or current) mixed, moderate F31.62 and Insomnia, unspecified type G47.00 [place] [address] [address] Feb, Chronic pain G89.29 [place] [address] [address] Feb, Bipolar I disorder, most recent episode (or current) mixed, moderate F31.62 [place] [address] [address] January, Bipolar I disorder, most recent episode (or current) mixed, moderate F31.62 [place] [address] [address] January, Chronic pain G89.29 [place] [address] [address] January, Chronic pain G89.29 and Essential hypert ension I10 [place] [address] [address] January, Bipolar I disorder, most recent episode (or current) mixed, moderate F31.62 [place] [address] [address] Dec, [place] [address] [address] Dec, [place] [address] [address] Dec, [place] [address] [address] Dec, [place] [address] [address] Nov, Reactive airway disease J45.909 [place] [address] [address] Nov, [place] [address] [address] Nov, [place] [address] [address] Nov, [place] [address] [address] Nov, [place] [address] [address] Nov, Onychomycosis B35.1 ; Hammertoe M20.40 ; [place] or callus L84 and DM neuro manif type II E11.49 [place] [address] [address] Nov, Chronic pain G89.29 ; Leukocytosis D72.8 29 and Diabetes E11.9 [place] [address] [address] Nov, [place] [address] [address] Oct, Bronchitis J40 [place] [address] [address] Oct, [place] [address] [address] Oct, [place] [address] [address] Oct, Mastoiditis, unspecified laterality H70. 90 and Type 2 diabetes mellitus with complication E11.8 [place] [address] [address] Sep, [address] [address] Sep, Dysuria R30.0 ; Cough R05 ; Benign prost atic hyperplasia with lower urinary tract symptoms, unspecified morphology N40.1 ; Hypokalemia E87.6 and Eustachian tube dysfunction, unspecified laterality H69.[address] [address] Sep, Moderate mixed bipolar I disorder F31.62 [facility] [address] [address] Sep, Hypokalemia E87.6 [facility] [address] [address] Sep, [facility] [address] [address] Sep, Upper respiratory tract infection, unspe cified type J06.9 [facility] [address] [address] Aug, [facility] [address] [address] Aug, Dysuria R30.0 [facility] [address] [address] Aug, [facility] [address] [address] Jul, [facility] [address] [address] Jul, [facility] [address] [address] Jul, [facility] [address] [address] Jul, [facility] [address] [address] Jun, [facility] [address] [address] Jun, [facility] [address] [address] Jun, [facility] [address] [address] May, [facility] [address] [address] May, Bipolar I disorder, most recent episode (or current) mixed, moderate 296.62 [facility] [address] [place] [id number] [place] [address] May, [facility] [address] [address] May, Bipolar I disorder, most recent episode (or current) mixed, moderate 296.62 and Major depressive disorder, recurrent episode, severe, specified as with psychotic behavior 296.34 [facility] [address] [address] May, Bipolar I disorder, most recent episode (or current) mixed, moderate 296.62 [facility] [address] [address] May, [facility] [address] [address] Apr, [facility] [address] [address] Apr, [facility] [address] [address] Apr, Unspecified disorder of kidney and urete r 593.9 and Diabetes mellitus type 2, uncontrolled 250.02 [facility] [address] [address] Apr, [facility] [address] [address] Apr, [facility] [address] [address] Apr, [facility] [address] [address] Apr, [facility] [address] [address] Apr, Diabetes mellitus type II, uncontrolled 250.02 [facility] [address] [address] Apr, [facility] [address] [address] Mar, [facility] [address] [address] Mar, [facility] [address] [address] Mar, [facility] [address] [address] Mar, Major depressive disorder, recurrent epi sode, severe, specified as with psychotic behavior 296.34 and Bipolar I disorder, most recent episode (or current) mixed, moderate 296.62 [facility] [address] [address] Mar, Diabetes 250.00 ; Anuria 788.5 ; Nausea and vomiting 787.01 and Diarrhea 787.91 [facility] [address] [address] Mar, Diabetes 250.00 [facility] [address] [address] Mar, [facility] [address] [address] Mar, Diabetes 250.00 [facility] [address] [address] Mar, [facility] [address] [address] Mar, [facility] [address] [address] Mar, [facility] [address] [address] Mar, [facility] [address] [address] Mar, Bipolar I disorder, most recent episode (or current) mixed, moderate 296.62 and Major depressive disorder, recurrent episode, severe, specified as with psychotic behavior 296.34 [facility] [address] [address] Mar, Magnesium deficiency 275.2 ; Hypokalemia 276.8 ; Nausea & vomiting 787.01 and Diabetes mellitus type 2, uncontrolled 250.02 [place] [address] [address] Feb, [address] [address] Feb, Bipolar I disorder, most recent episode (or current) mixed, moderate 296.[address] [address] Feb, Nausea and vomiting 787.01 ; Left elbow pain 719.42 ; Anuria 788.5 and Diabetes 250.[address] [address] Feb, [address] [address] Feb, Hypopotassemia 276.8 and Hypokalemia [address] [address] Feb, Hypopotassemia 276.8 and Hypokalemia [address] [address] Feb, Seborrheic keratoses 702.[address] [address] Feb, Hypopotassemia 276.8 and Low magnesium l evels 275.2 [place] [address] [address] January, [address] [address] January, [address] [address] January, [address] [address] January, Scalp lesion 709.[address] [id number] [place] [address] January, [facility] [address] [place] [id number] [place] [address] Dec, Tear of medial cartilage or meniscus of knee, current 836.0 and 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 [facility] [address] [place] [id number] [place] [address] Dec, [facility] [address] [place] [id number] [place] [address] Dec, [facility] [address] [place] [id number] [place] [address] Dec, Squamous cell carcinoma, 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 42 [facility] [address] [place] [id number] [place] [address] Dec, [facility] [address] [place] [id number] [place] [address] Dec, [facility] [address] [place] [id number] [place] [address] Nov, [facility] [address] [place] [id number] [place] [address] Nov, [facility] [address] [place] [id number] [place] [address] Nov, [facility] [address] [place] [id number] [place] [address] Nov, [facility] [address] [place] [id number] [place] [address] Nov, [facility] [address] [place] [id number] [place] [address] Nov, [facility] [address] [place] [id number] [place] [address] Nov, [facility] [address] [place] [id number] [place] [address] Nov, [facility] [address] [place] [id number] [place] [address] Nov, [facility] [address] [id number] [place] [address] Nov, [facility] [address] [id number] [facility] [place] [address] Nov, [facility] [address] [id number] [place] [address] Nov, [facility] [address] [id number] [place] [address] Oct, 2014 [facility] [address] [id number] [place] [address] Oct, 2014 [facility] [address] [id number] [place] [address] Oct, [facility] [address] [id number] [place] [address] Oct, 2014 [facility] [address] [id number] [place] [address] Oct, 2014 [facility] [address] [id number] [place] [address] Oct, [facility] [address] [id number] [place] [address] Oct, [facility] [address] [id number] [place] [address] Oct, [facility] [address] [id number] [place] [address] Oct, [facility] [address] [id number] [place] [address] Sep, [facility] [address] [id number] [place] [address] Sep, [facility] [address] [id number] [place] [address] Sep, [facility] [address] [id number] [place] [address] Sep, [facility] [address] [id number] [place] [address] Sep, [facility] [address] [id number] [place] [address] Sep, [facility] [address] [id number] [place] [address] Sep, [facility] [address] [id number] [place] [address] Sep, [facility] [address] [id number] [place] [address] Sep, [facility] [address] [id number] [place] [address] Sep, [facility] [address] [id number] [place] [address] Sep, [facility] [address] [id number] [place] [address] Sep, [facility] [address] [id number] [place] [address] Sep, [facility] [address] [id number] [place] [address] Sep, [facility] [address] [id number] [place] [address] Sep, [facility] [address] [id number] [place] [address] Sep, [facility] [address] [id number] [place] [address] Aug, [facility] [address] [id number] [place] [address] Aug, [facility] [address] [id number] [place] [address] Aug, [facility] [address] [id number] [place] [address] Aug, [facility] [address] [id number] [place] [address] Aug, [facility] [address] [facility] [id number] [address] Aug, [facility] [address] [facility] [place] [id number] [facility] [place] [address] Aug, [facility] [address] [id number] [place] [address] Aug, [facility] [address] [id number] [place] [address] Aug, [facility] [address] [facility] [place] [id number] [address] Aug, [facility] [address] [id number] [place] [address] Aug, [facility] [address] [facility] [id number] Aug, [facility] [address] [id number] [place] [address] Aug, [facility] [address] [id number] [place] [address] Aug, [facility] [address] [id number] [place] [address] Aug, [facility] [address] [id number] [place] [address] Aug, [facility] [address] [id number] [place] [address] Aug, [facility] [address] [id number] [place] [address] Aug, [facility] [address] [facility] [id number] [address] Aug, [facility] [address] [id number] [place] [address] Aug, [facility] [address] [id number] [place] [address] Aug, [facility] [address] [id number] [place] [address] Aug, [facility] [address] [id number] [place] [address] Aug, [facility] [address] [id number] [place] [address] Aug, [facility] [address] [id number] [place] [address] Aug, [facility] [address] [id number] [place] [address] Aug, [facility] [address] [id number] [place] [address] Aug, [facility] [address] [id number] [place] [address] Aug, [facility] [address] [id number] [place] [address] Aug, [facility] [address] [id number] [place] [address] Aug, [facility] [address] [id number] [place] [address] Jul, [facility] [address] [id number] [place] [address] Jul, [facility] [address] [id number] [place] [address] Jul, [facility] [address] [id number] [place] [address] Jul, [facility] [address] [id number] [place] [address] Jul, [facility] [address] [id number] [place] [address] Jul, [facility] [address] [id number] [place] [address] Jul, [facility] [address] [id number] [place] [address] Jul, [facility] [address] [id number] [place] [address] Jul, [facility] [address] [facility] [id number] [address] Jul, [facility] [address] [id number] [place] [address] Jun, [facility] [address] [id number] [place] [address] Jun, [facility] [address] [id number] [place] [address] Jun, [facility] [address] [id number] [place] [address] Jun, [facility] [address] [id number] [place] [address] Jun, [facility] [address] [id number] [place] [address] Jun, [facility] [address] [id number] [place] [address] Jun, [facility] [address] [id number] [place] [address] Jun, [facility] [address] [id number] [place] [address] Jun, [facility] [address] [id number] [place] [address] Jun, [facility] [address] [id number] [place] [address] 29 May, 2013 [facility] [address] [id number] [place] [address] 29 Sep, 2013 [facility] [address] [id number] [place] [address] 26 May, 2013 [facility] [address] [id number] [place] [address] 26 Sep, 2013 [facility] [address] [id number] [place] [address] 17 May, 2013 [facility] [address] [id number] [place] [address] 17 May, 2013 [facility] [address] [id number] [place] [address] 15 May, 2013 [facility] [address] [id number] [place] [address] 15 May, 2013 [facility] [address] [id number] [place] [address] 15 May, 2013 [facility] [address] [facility] [id number] [address] 15 May, 2013 [facility] [address] [id number] [place] [address] 10 May, 2013 [facility] [address] [id number] [place] [address] 10 May, 2013 [facility] [address] [id number] [place] [address] 09 May, 2013 [facility] [address] [id number] [place] [address] 09 May, 2013 [facility] [address] [id number] [place] [address] 04 May, 2013 [facility] [address] [id number] [place] [address] May, 2013 [facility] [address] [id number] [place] [address] Apr, [facility] [address] [id number] [place] [address] Apr, [facility] [address] [facility] [id number] [place] [address] Apr, [facility] [place] [facility] [address] [id number] [place] [address] Apr, [facility] [place] [facility] [address] [id number] [place] [address] Apr, 2013 [facility] [place] [facility] [address] [id number] [place] [address] Apr, [facility] [place] [facility] [address] [id number] [facility] [place] [address] Apr, [facility] [place] [facility] [address] [facility] [place] [id number] [place] [address] Apr, [facility] [place] [facility] [address] [id number] [facility] [place] [address] Apr, [facility] [place] [facility] [address] [facility] [place] [id number] [place] [address] Apr, [facility] [place] [facility] [address] [facility] [place] [id number] [place] [address] Apr, [facility] [place] [facility] [address] [facility] [place] [id number] [place] [address] Apr, [facility] [place] [facility] [address] [id number] [facility] [place] [address] Apr, [facility] [place] [facility] [address] [id number] [place] [address] Apr, [facility] [place] [facility] [address] [facility] [place] [id number] [facility] [place] [address] Apr, [facility] [place] [facility] [address] [id number] [place] [address] Mar, [facility] [place] [facility] [address] [id number] [facility] [place] [address] Mar, [facility] [place] [facility] [address] [id number] [place] [address] Mar, [facility] [place] [facility] [address] [facility] [place] [id number] [place] [address] Mar, [facility] [place] [facility] [address] [id number] [place] [address] Mar, [facility] [place] [facility] [address] [facility] [place] [id number] [facility] [place] [address] Mar, [facility] [place] [facility] [address] [id number] [facility] [place] [address] Mar, [facility] [place] [facility] [address] [facility] [place] [id number] [place] [address] Mar, 2013 [facility] [place] [facility] [address] [facility] [place] [id number] [place] [address] Mar, 2013 [facility] [place] [facility] [address] [facility] [place] [id number] [place] [address] Mar, 2013 [facility] [place] [facility] [address] [id number] [place] [address] Mar, 2013 [facility] [place] [facility] [address] [facility] [place] [id number] [place] [address] Mar, 2013 [facility] [place] [facility] [address] [facility] [place] [id number] [place] [address] Mar, 2013 [facility] [place] [facility] [address] [id number] [place] [address] Mar, 2013 [facility] [place] [facility] [address] [id number] [place] [address] Mar, 2013 [facility] [place] [facility] [address] [id number] [place] [address] Mar, 2013 [facility] [place] [facility] [address] [id number] [place] [address] Mar, 2013 [facility] [place] [facility] [address] [id number] [place] [address] Mar, [facility] [place] [facility] [address] [id number] [place] [address] Feb, [facility] [place] [facility] [address] [id number] [place] [address] Feb, [facility] [place] [facility] [address] [facility] [place] [id number] [place] [address] Feb, [facility] [place] [facility] [address] [id number] [place] [address] Feb, [facility] [place] [facility] [address] [id number] [place] [address] Feb, [facility] [place] [facility] [address] [id number] [place] [address] Feb, [facility] [place] [facility] [address] [facility] [place] [id number] [place] [address] Feb, [facility] [place] [facility] [address] [id number] [place] [address] Feb, [facility] [place] [facility] [address] [id number] [place] [address] Feb, [facility] [place] [facility] [address] [id number] [place] [address] Feb, [facility] [place] [facility] [address] [facility] [place] [id number] [place] [address] Feb, [facility] [place] [facility] [address] [id number] [place] [address] Feb, [facility] [place] [facility] [address] [id number] [place] [address] Feb, [facility] [place] [facility] [address] [id number] [place] [address] Feb, [facility] [place] [facility] [address] [id number] [place] [address] January, [facility] [place] [facility] [address] [id number] [place] [address] January, [facility] [place] [facility] [address] [id number] [place] [address] January, [facility] [place] [facility] [address] [id number] [place] [address] January, [facility] [place] [facility] [address] [id number] [place] [address] January, [facility] [place] [facility] [address] [id number] [place] [address] January, [facility] [place] [facility] [address] [id number] [place] [address] January, [facility] [place] [facility] [address] [id number] [place] [address] January, [facility] [place] [facility] [address] [id number] [place] [address] January, [facility] [place] [facility] [address] [facility] [place] [id number] [facility] [place] [address] January, [facility] [place] [facility] [address] [facility] [place] [id number] [facility] [place] [address] January, [facility] [place] [facility] [address] [id number] [facility] [place] [address] January, [facility] [place] [facility] [address] [id number] [facility] [place] [address] January, [facility] [place] [facility] [address] [facility] [place] [id number] [facility] [place] [address] January, [facility] [place] [facility] [address] [id number] [place] [address] Dec, [facility] [place] [facility] [address] [id number] [facility] [place] [address] Dec, [facility] [place] [facility] [address] [id number] [facility] [place] [address] Dec, [facility] [place] [facility] [address] [id number] [place] [address] Dec, [facility] [place] [facility] [address] [id number] [place] [address] Dec, [facility] [place] [facility] [address] [id number] [place] [address] Dec, [facility] [place] [facility] [address] [id number] [place] [address] Dec, [facility] [place] [facility] [address] [id number] [facility] [place] [address] Dec, [facility] [place] [facility] [address] [id number] [place] [address] Dec, [facility] [place] [facility] [address] [id number] [place] [address] Dec, [facility] [place] [facility] [address] [id number] [facility] [place] [address] Nov, [facility] [place] [facility] [address] [id number] [place] [address] Nov, [facility] [place] [facility] [address] [facility] [place] [id number] [place] [address] Nov, [facility] [place] [facility] [address] [facility] [place] [id number] [place] [address] Nov, [facility] [place] [facility] [address] [id number] [place] [address] 08 Nov, 2013 [facility] [place] [facility] [address] [id number] [place] [address] 08 Nov, 2013 [facility] [place] [facility] [address] [facility] [place] [id number] [place] [address] Nov, [facility] [place] [facility] [address] [id number] [place] [address] Nov, [facility] [place] [facility] [address] [id number] [place] [address] Nov, [facility] [place] [facility] [address] [id number] [place] [address] Nov, [facility] [place] [facility] [address] [id number] [place] [address] Oct, [facility] [place] [facility] [address] [id number] [place] [address] Oct, [facility] [place] [facility] [address] [id number] [place] [address] Oct, [facility] [place] [facility] [address] [id number] [place] [address] Oct, [facility] [place] [facility] [address] [id number] [place] [address] Oct, [facility] [place] [facility] [address] [id number] [place] [address] 20 Oct, 2013 [facility] [place] [facility] [address] [id number] [place] [address] 14 Oct, 2013 [facility] [place] [facility] [address] [id number] [place] [address] Oct, [facility] [place] [facility] [address] [id number] [place] [address] Oct, [facility] [place] [facility] [address] [id number] [place] [address] Oct, [facility] [place] [facility] [address] [id number] [place] [address] Oct, [facility] [place] [facility] [address] [id number] [place] [address] Oct, [facility] [place] [facility] [address] [id number] [place] [address] Oct, [facility] [place] [facility] [address] [id number] [place] [address] Oct, [facility] [place] [facility] [address] [id number] [place] [address] Sep, [facility] [place] [facility] [address] [id number] [place] [address] Sep, [facility] [place] [facility] [address] [id number] [place] [address] Sep, [facility] [place] [facility] [address] [id number] [place] [address] Sep, [facility] [place] [facility] [address] [id number] [place] [address] Sep, [facility] [place] [facility] [address] [id number] [place] [address] Sep, [facility] [place] [facility] [address] [id number] [place] [address] Sep, [facility] [place] [facility] [address] [id number] [place] [address] Sep, [facility] [place] [facility] [address] [id number] [place] [address] Sep, [facility] [place] [facility] [address] [id number] [place] [address] Sep, [facility] [place] [facility] [address] [id number] [place] [address] Aug, [facility] [place] [facility] [address] [id number] [place] [address] Aug, [facility] [place] [facility] [address] [id number] [place] [address] Jul, [facility] [place] [facility] [address] [id number] [place] [address] Jul, [facility] [place] [facility] [address] [id number] [place] [address] Jul, [facility] [place] [facility] [address] [id number] [place] [address] Jul, [facility] [place] [facility] [address] [id number] [place] [address] Jul, [facility] [place] [facility] [address] [id number] [place] [address] Jul, [facility] [place] [facility] [address] [id number] [place] [address] Jul, [facility] [place] [facility] [address] [id number] [place] [address] Jul, [facility] [place] [facility] [address] [id number] [place] [address] Jul, [facility] [place] [facility] [address] [id number] [place] [address] Jul, [facility] [place] [facility] [address] [id number] [place] [address] Jul, [facility] [place] [facility] [address] [id number] [place] [address] Jul, [facility] [place] [facility] [address] [id number] [place] [address] Jul, [facility] [place] [facility] [address] [id number] [place] [address] Jul, [facility] [place] [facility] [address] [id number] [place] [address] Jul, [facility] [place] [facility] [address] [id number] [place] [address] Jul, 2012 [facility] [place] [facility] [address] [id number] [place] [address] Jul, 2012 [facility] [place] [facility] [address] [id number] [place] [address] Jul, 2012 [facility] [place] [facility] [address] [id number] [place] [address] Jul, 2012 [facility] [place] [facility] [address] [id number] [place] [address] Jun, 2012 [facility] [place] [facility] [address] [id number] [place] [address] Jun, 2012 [facility] [place] [facility] [address] [id number] [place] [address] Jun, 2012 [facility] [place] [facility] [address] [id number] [place] [address] Jun, 2012 [facility] [place] [facility] [address] [id number] [place] [address] Jun, 2012 [facility] [place] [facility] [address] [id number] [place] [address] Jun, 2012 [facility] [place] [facility] [address] [id number] [place] [address] Jun, 2012 [facility] [place] [facility] [address] [id number] [place] [address] Jun, 2012 [facility] [place] [facility] [address] [id number] [place] [address] Jun, 2012 [facility] [place] [facility] [address] [id number] [place] [address] Jun, 2012 [facility] [place] [facility] [address] [id number] [place] [address] Jun, 2012 [facility] [place] [facility] [address] [id number] [place] [address] May, 2012 [facility] [place] [facility] [address] [id number] [place] [address] 25 May, 2012 [facility] [place] [facility] [address] [id number] [facility] [place] [address] 19 May, 2012 [facility] [place] [facility] [address] [facility] [place] [id number] [facility] [place] [address] 17 May, 2012 [facility] [place] [facility] [address] [id number] [facility] [place] [address] 11 May, 2012 [facility] [place] [facility] [address] [id number] [facility] [place] [address] 10 May, 2012 [facility] [place] [facility] [address] [facility] [place] [id number] [facility] [place] [address] May, [facility] [place] [facility] [address] [id number] [place] [address] 05 May, 2012 [facility] [place] [facility] [address] [id number] [place] [address] Apr, [facility] [place] [facility] [address] [id number] [place] [address] Apr, [facility] [place] [facility] [address] [id number] [place] [address] Apr, [facility] [place] [facility] [address] [id number] [place] [address] Apr, [facility] [place] [facility] [address] [id number] [place] [address] Apr, [facility] [place] [facility] [address] [id number] [place] [address] Mar, [facility] [place] [facility] [address] [id number] [place] [address] Mar, [facility] [place] [facility] [address] [id number] [place] [address] Mar, [facility] [place] [facility] [address] [id number] [place] [address] Mar, [facility] [place] [facility] [address] [id number] [place] [address] Mar, [facility] [place] [facility] [address] [id number] [place] [address] Mar, [facility] [place] [facility] [address] [id number] [place] [address] Mar, [facility] [place] [facility] [address] [id number] [place] [address] Mar, [facility] [place] [facility] [address] [id number] [place] [address] Feb, [facility] [place] [facility] [address] [id number] [place] [address] Feb, [facility] [place] [facility] [address] [id number] [place] [address] January, [facility] [place] [facility] [address] [id number] [place] [address] January, [facility] [address] [id number] [place] [address] Dec, [facility] [address] [id number] [place] [address] Dec, [facility] [address] [id number] [place] [address] Nov, [facility] [address] [id number] [place] [address] Nov, [facility] [address] [id number] [place] [address] Nov, [facility] [address] [id number] [place] [address] Nov, [facility] [address] [id number] [place] [address] Oct, [facility] [address] [id number] [place] [address] Oct, [facility] [address] [id number] [place] [address] Oct, [facility] [address] [id number] [place] [address] Oct, 2012 [facility] [address] [id number] [place] [address] 16 Oct, 2012 [facility] [address] [id number] [place] [address] 14 Oct, 2012 [facility] [address] [id number] [place] [address] 08 Oct, 2012 [facility] [address] [id number] [place] [address] 07 Oct, 2012 [facility] [address] [id number] [place] [address] Oct, [facility] [address] [id number] [place] [address] 30 Sep, 2012 [facility] [address] [id number] [place] [address] Sep, [facility] [address] [id number] [place] [address] Sep, [facility] [address] [id number] [place] [address] Sep, [facility] [address] [id number] [place] [address] Sep, [facility] [address] [id number] [place] [address] Sep, [facility] [address] [id number] [place] [address] Sep, [facility] [address] [id number] [place] [address] Sep, [facility] [address] [id number] [place] [address] Aug, [facility] [address] [id number] [place] [address] Aug, [facility] [address] [id number] [place] [address] Aug, [facility] [address] [id number] [place] [address] Aug, [facility] [address] [id number] [place] [address] Aug, [facility] [address] [id number] [place] [address] Aug, [facility] [address] [id number] [place] [address] Aug, [facility] [address] [id number] [place] [address] Aug, [facility] [address] [id number] [place] [address] Jul, [facility] [address] [id number] [place] [address] Jul, [facility] [address] [id number] [place] [address] Jul, [facility] [address] [id number] [place] [address] Jul, [facility] [address] [id number] [place] [address] Jul, [facility] [address] [id number] [place] [address] Jul, [facility] [address] [id number] [place] [address] Jun, [facility] [address] [id number] [place] [address] Jun, [facility] [address] [id number] [place] [address] Jun, [facility] [id number] [place] [address] Jun, [facility] [address] [id number] [place] [address] Jun, [facility] [address] [id number] [place] [address] Jun, [facility] [address] [id number] [place] [address] Jun, [facility] [address] [id number] [place] [address] Jun, [facility] [address] [id number] [place] [address] 10 Jun, 2012 [facility] [address] [id number] [place] [address] 26 May, 2012 [facility] [address] [facility] [place] [id number] [place] [address] 24 May, 2012 [facility] [address] [id number] [place] [address] 18 May, 2012 [facility] [address] [id number] [place] [address] 30 Apr, 2012 [facility] [address] [id number] [place] [address] Apr, [facility] [address] [id number] [place] [address] Apr, [facility] [address] [id number] [place] [address] Apr, [facility] [address] [id number] [place] [address] Apr, [facility] [address] [id number] [place] [address] Apr, [facility] [address] [id number] [place] [address] Mar, [facility] [address] [id number] [place] [address] Mar, [facility] [address] [id number] [place] [address] Mar, [facility] [address] [id number] [place] [address] Mar, [facility] [address] [id number] [facility] [place] [address] Feb, [facility] [address] [id number] [facility] [place] [address] Feb, [facility] [address] [id number] [place] [address] Feb, [facility] [address] [id number] [place] [address] Feb, [facility] [address] [id number] [place] [address] Feb, [facility] [address] [id number] [facility] [place] [address] January, [facility] [address] [id number] [place] [address] January, [facility] [address] [id number] [place] [address] January, [facility] [address] [id number] [place] [address] January, [facility] [address] [id number] [place] [address] January, [facility] [address] [id number] [place] [address] January, [facility] [address] [id number] [place] [address] Dec, [facility] [address] [id number] [place] [address] Dec, [facility] [address] [id number] [place] [address] Dec, [facility] [address] [id number] [place] [address] Dec, [facility] [address] [id number] [place] [address] Dec, [facility] [address] [id number] [place] [address] Nov, [facility] [address] [id number] [place] [address] 14 Nov, 2011 [facility] [address] [id number] [place] [address] 12 Nov, 2011 [facility] [address] [id number] [place] [address] 07 Nov, 2011 [facility] [address] [id number] [place] [address] 29 Oct, 2011 [facility] [address] [id number] [place] [address] 28 Oct, 2011 [facility] [address] [id number] [place] [address] 24 Oct, 2011 [facility] [address] [id number] [place] [address] 13 Oct, 2011 [facility] [address] [id number] [place] [address] 08 Oct, 2011 [facility] [address] [id number] [place] [address] Sep, [facility] [address] [id number] [place] [address] Sep, [facility] [address] [id number] [place] [address] Sep, [facility] [address] [id number] [place] [address] Sep, [facility] [address] [id number] [place] [address] Sep, [facility] [address] [id number] [place] [address] Sep, [facility] [address] [id number] [place] [address] Aug, [facility] [address] [id number] [place] [address] Aug, [facility] [address] [id number] [place] [address] Aug, [facility] [address] [facility] [id number] [address] Jul, [facility] [address] [facility] [id number] [address] Jul, [facility] [address] [id number] [place] [address] Jul, [facility] [address] [id number] [place] [address] Jul, [facility] [address] [facility] [id number] [address] Jun, [facility] [address] [id number] [place] [address] Jun, [facility] [address] [id number] [place] [address] Jun, [facility] [address] [id number] [place] [address] Jun, [facility] [address] [id number] [place] [address] Jun, [facility] [address] [id number] [place] [address] Jun, [facility] [address] [id number] [place] [address] Mar, [facility] [address] [id number] [place] [address] Dec, [facility] [address] [id number] [place] [address] Dec, [facility] [address] [id number] [place] [address] Nov, [facility] [address] [id number] [place] [address] 16 Nov, 2010 [facility] [address] [id number] [place] [address] Sep, [facility] [address] [id number] [place] [address] 31 Aug, 2010 [facility] [address] [id number] [place] [address] 29 Aug, 2010 [facility] [address] [id number] [place] [address] 29 Aug, 2010 [facility] [address] [id number] [place] [address] 29 Aug, 2010 [facility] [address] [id number] [place] [address] 27 Aug, 2010 [facility] [address] [id number] [place] [address] 14 Aug, 2010 [facility] [address] [id number] [place] [address] 08 Aug, 2010 [facility] [address] [id number] [place] [address] 08 Aug, 2010 [facility] [address] [id number] [place] [address] 07 Aug, 2010 [facility] [address] [id number] [place] [address] 06 Aug, 2010 [facility] [address] [id number] [place] [address] 06 Aug, 2010 [facility] [address] [id number] [place] [address] Aug, [facility] [address] [id number] [place] [address] 30 Jul, 2010 [facility] [address] [id number] [place] [address] 30 Jul, 2010 [facility] [id number] [place] [address] 30 Jul, 2010 [facility] [address] [id number] [place] [address] 17 Jul, 2010 [facility] [address] [id number] [place] [address] Jul, [facility] [address] [id number] [place] [address] Jul, [facility] [address] [id number] [place] [address] Jun, [facility] [address] [id number] [place] [address] Jun, [facility] [address] [id number] [place] [address] Jun, [facility] [address] [id number] [place] [address] Jun, [facility] [address] [id number] [place] [address] Apr, [facility] [address] [id number] [place] [address] Mar, [facility] [address] [id number] [place] [address] Feb, [facility] [address] [id number] [place] [address] January, [facility] [address] [id number] [place] [address] Dec, [facility] [address] [id number] [place] [address] Nov, [facility] [address] [id number] [place] [address] Aug, [facility] [address] [id number] [place] [address] Aug, [facility] [address] [id number] [place] [address] Aug, [facility] [address] [id number] [place] [address] Jul, [facility] [address] [id number] [place] [address] Jul, [facility] [address] [id number] [place] [address] Jul, [facility] [id number] [place] [address] Jun, [facility] [id number] [place] [address] Jun, [facility] [id number] [place] [address] Jun, [facility] [id number] [place] [address] Jun, [facility] [id number] [place] [address] Jun, [facility] [address] [address] Jun, [facility] [id number] [place] [address] Apr, [facility] [id number] [place] [address] Apr, [facility] [id number] [place] [address] Feb, [facility] [id number] [place] [address] January, [facility] [id number] [place] [address] Dec, IMMUNIZATIONS No Known Immunizations SOCIAL HISTORY Never Assessed REASON FOR VISIT PLAN OF CARE VITAL SIGNS MEDICATIONS Unknown Medications RESULTS No Results PROCEDURES Procedure Date Ordered Result Body Site PSYTX PT&/FAMILY 45 MINUTES March 10, 2014 INSTRUCTIONS MEDICATIONS ADMINISTERED No Known Medications MEDICAL (GENERAL) HISTORY Type Description Date Medical History type II diabetes Medical History coronary artery disease stress test Medical History chronic obstructive pulmonary disease (C OPD) Medical History gastroesophageal reflux disease (GERD) Medical History acute renal failure Medical History erectile dysfunction Medical History hyperlipidemia Medical History obesity Medical History skin cancer-basal cell R orthodoxy (removed ) Medical History Arthritis Medical History [...] colonoscopy 2009 ([facility]), 2013 ([place] ) Surgical History heart cath: CAD w/ [...] History inability to urinate 09/16/15 Hospitalization History [facility] inpatient mental health ea rly 2000's Hospitalization History hyperkalemia 10/2017 Hospitalization History fluid in lung
--- NOTE | 2020-03-01 17:05 | NUR ---
Pt declined additional nitroglycerin.
--- OUTSIDE RECORDS SUMMARY | 2020-03-01 17:05 | XMS REPORT ---
Author Author Michele WASHBURN Organization [facility] Address [address] [place] [address] Care Team Providers Care Marine Superintendent Name Role Phone NOEMI WASHBURN Unavailable PROBLEMS Type Condition ICD9-CM Code NRE38-DK Code Onset Dates Condition S tatus SNOMED Code Problem Benign prostatic hyperplasia with lower urinary tract symptoms, unspecified morphology N40.1 Active 34019 6007 Problem Diabetes E11.9 Active 07980717 Problem DM neuro manif type II E11.49 Active 52562203 Problem Leukocytosis D72.829 Active 4061688 06 Problem Chronic pain G89.29 Active 6772060 1 Problem Bipolar I disorder, most recent episode (or curr ent) mixed, moderate F31.62 Active 48878232 Problem Reactive airway disease J45.909 Active 243516119941 Problem Pure hypercholesterolemia E78.00 Acti ve 039700976 Problem Dysuria R30.0 Active 02332692 Problem Bipolar disorder, in partial remission, most rec ent episode depressed F31.75 Active 70204547 Problem Hypokalemia E87.6 Active 73933952 Problem Eustachian tube dysfunction, unspecified laterality H69.80 Active 87004005 Problem Cough R05 Active 65082767 Problem Diabetic polyneuropathy associated with type 2 d iabetes mellitus E11.42 Active 38310032 Problem Essential hypertension I10 Active 87446762 Problem Bilateral primary osteoarthritis of knee M17.0 Active 507554309 Problem Polyneuropathy associated with underlying disease G63 Active 859644942 Problem Retinal edema H35.81 Active 622368 6 Problem Lymphocytosis D72.820 Active 790354 09 Problem Anemia of chronic illness D63.8 Acti ve 917655020 Problem Chronic lymphocytic leukemia C91.10 A ctive 46685357 Problem Falling R29.6 Active 548288014 Problem Pressure ulcer of other site, stage 3 L89.893 Active 591421403 Problem 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 Active 334434700 Problem Eye exam abnormal R93.8 Active 16 0086646 Problem Primary osteoarthritis of right knee M17.11 Active 379414585175431 Problem Other iron deficiency anemia D50.8 A ctive 14807306 Problem Mild cognitive impairment G31.84 Acti ve 166495155 Problem USP (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 Z79.4 Active 070853759 Problem Anxiety F41.9 Active 94750439 Problem Type 2 diabetes mellitus with diabetic neuropathy, uns pecified E11.40 Active 27033757 Problem Insomnia, unspecified type G47.00 Act sharon 068891463 Problem Morbid obesity E66.01 Active 19182 6002 Problem Skin cancer C44.90 Active 14630437 7 Problem Bipolar disorder F31.9 Active 137 76844 Problem Chronic diastolic (congestive) heart failure I50.3 2 Active 245520528 Problem Psychophysiological insomnia F51.04 A ctive [id number] ALLERGIES No Information ENCOUNTERS Encounter Location Date Diagnosis [place] [address] [address] [facility] [id number] [address] [place] [phone] Sep, [place] [address] [address] [facility] [id number] [address] [place] [phone] Jul, [place] [address] [address] [facility] [id number] [address] [place] [address] Jun, [facility] [address] [facility] [id number] [address] [place] [phone] Jun, [place] [address] [facility] [id number] [address] [place] [address] Jun, [place] [address] [facility] [id number] [address] [place] [address] Jun, Psychophysiological insomnia F51.04 ; Chronic pain G89.29 ; Bipolar I disorder, most recent episode (or current) mixed, moderate F31.62 ; 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 ; Polyneuropathy associated with underlying disease G63 ; Type 2 diabetes mellitus with diabetic neuropathy, unspecified E11.40 ; 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 (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 Z79.4 and Hyperglycemia R73.9 [facility] [address] [id number] [address] [place] [address] Jun, Bipolar disorder, in partial remission, most recent episode depressed F31.75 and Mild cognitive impairment G31.84 [facility] [address] [id number] [address] [place] [address] Jun, [facility] [address] [facility] [id number] [address] [place] [address] Jun, Bipolar disorder F31.9 [facility] [address] [facility] [id number] [address] [place] [address] May, Bipolar disorder, in partial remission, most recent episode depressed F31.75 and Mild cognitive impairment G31.84 [facility] [address] [facility] [id number] [address] [place] [phone] May, [facility] [address] [facility] [id number] [address] [place] [address] Apr, Chronic pain G89.29 and Bipo lar disorder F31.9 [facility] [address] [id number] [address] [place] [address] Mar, Bipolar disorder F31.9 and C hronic pain G89.29 [facility] [address] [facility] [id number] [address] [place] [address] Feb, Bipolar disorder F31.9 [facility] [address] [facility] [id number] [address] [place] [address] Feb, Cellulitis of right upper ex tremity L03.113 and Skin abrasion T14.8XXA [facility] [address] [id number] [address] [place] [address] Feb, Bipolar disorder, in partial remission, most recent episode depressed F31.75 and Mild cognitive impairment G31.84 [facility] [address] [id number] [address] [place] [address] Feb, Chronic pain G89.29 [facility] [address] [facility] [id number] [address] [place] [address] Feb, Bipolar disorder, in partial remission, most recent episode depressed F31.75 and Mild cognitive impairment G31.84 [facility] [address] [id number] [address] [place] [address] January, Bipolar disorder, in partial remission, most recent episode depressed F31.75 and Mild cognitive impairment G31.84 [facility] [address] [id number] [address] [place] [address] January, Chronic pain G89.29 and Bipo lar disorder F31.9 [facility] [address] [id number] [address] [place] [address] January, Bipolar disorder, in partial remission, most recent episode depressed F31.75 and Mild cognitive impairment G31.84 [facility] [address] [id number] [address] [place] [address] Dec, [facility] [address] [id number] [address] [place] [address] Dec, Chronic pain G89.29 and Bipo lar disorder F31.9 [facility] [address] [id number] [address] [place] [address] Dec, Edema of both lower extremit ies R60.0 [facility] [address] [id number] [address] [place] [phone] Dec, Bipolar disorder F31.9 [facility] [address] [id number] [address] [place] [address] Dec, Bipolar disorder, in partial remission, most recent episode depressed F31.75 and Mild cognitive impairment G31.84 [facility] [address] [id number] [address] [place] [phone] Nov, [facility] [address] [id number] [address] [place] [address] Nov, Chronic pain G89.29 [facility] [address] [id number] [address] [place] [address] Nov, Bipolar disorder, in partial remission, most recent episode depressed F31.75 and Mild cognitive impairment G31.84 [place] [address] [place] [id number] [place] [address] Nov, Bipolar disorder F31.9 [place] [address] [place] [id number] [address] [place] [phone] 04 Nov, 2018 Encounter for Medicare [facility] wellness exam Z00.00 ; Polyneuropathy associated with [...] unspecified morphology N40.1 and Essential hypertension I10 [place] [address] [address] [place] [id number] [place] [address] Oct, Chronic pain G89.29 [place] [address] [address] 18 Oct, 2018 Diabetes E11.9 [place] [address] [place] [id number] [address] [place] [address] Oct, Bipolar I disorder, most rec ent episode (or current) mixed, moderate F31.62 and Mild cognitive impairment G31.84 [place] [address] [place] [id number] [address] [place] [address] Oct, Bipolar I disorder, most rec ent episode (or current) mixed, moderate F31.62 and Mild cognitive impairment G31.84 [place] [address] [place] [id number] [address] [place] [address] Sep, Bipolar I disorder, most rec ent episode (or current) mixed, moderate F31.62 and Mild cognitive impairment G31.84 [place] [address] [place] [id number] [address] [place] [address] Sep, [facility] [address] [facility] [id number] [address] [place] [address] Sep, Diabetes E11.9 ; Hypoxia R09 .02 ; Hyperglycemia R73.9 ; Therapeutic drug monitoring Z51.81 ; BMI 50.0-59.9, adult Z68.43 and Skin cancer C44.90 [place] [address] [place] [id number] [address] [place] [address] Sep, Chronic pain G89.29 [place] [address] [place] [id number] [address] [place] [address] Sep, Bipolar I disorder, most rec ent episode (or current) mixed, moderate F31.62 [place] [address] [place] [id number] [address] [place] [address] Sep, [place] [address] [place] [id number] [address] [place] [address] Sep, [place] [address] [facility] [id number] [address] [place] [address] Aug, Chronic pain G89.29 [place] [address] [facility] [id number] [address] [place] [address] Aug, Bipolar I disorder, most rec ent episode (or current) mixed, moderate F31.62 [place] [address] [place] [id number] [address] [place] [address] Aug, Bipolar I disorder, most rec ent episode (or current) mixed, moderate F31.62 and Mild cognitive impairment G31.84 [place] [address] [facility] [id number] [address] [place] [phone] Jul, [place] [address] [place] [id number] [address] [place] [address] Jul, Chronic pain G89.29 [place] [address] [facility] [id number] [address] [place] [address] Jul, Bipolar I disorder, most rec ent episode (or current) mixed, moderate F31.62 and Mild cognitive impairment G31.84 [place] [address] [facility] [id number] [address] [place] [address] Jul, Bipolar I disorder, most rec ent episode (or current) mixed, moderate F31.62 and MCI (mild cognitive impairment) G31.84 [place] [address] [facility] [id number] [address] [place] [phone] Jul, [facility] [address] [facility] [id number] [address] [place] [address] Jul, [place] [address] [facility] [id number] [address] [place] [phone] Jul, Bipolar I disorder, most rec ent episode (or current) mixed, moderate F31.62 [place] [address] [facility] [id number] [address] [place] [address] Jul, Chronic pain G89.29 [place] [address] [facility] [id number] [address] [place] [phone] Jun, Bipolar I disorder, most rec ent episode (or current) mixed, moderate F31.62 [place] [address] [facility] [id number] [address] [place] [address] Jun, Pre-procedure lab exam Z01.8 12 [place] [address] [address] [place] [id number] [address] [place] [phone] Jun, [facility] [address] [id number] [place] [id number] Jun, [place] [address] [facility] [id number] [address] [place] [phone] Jun, [place] [address] [place] [id number] [address] [place] [address] Jun, Forgetfulness R68.89 ; Pre-s yncope R55 ; Localized edema R60.0 ; Other iron deficiency anemia D50.8 and BMI 50.0-59.9, adult Z68.43 [facility] [address] [facility] [id number] [address] [place] [address] Jun, Chronic pain G89.29 [facility] [address] [facility] [id number] [address] [place] [address] Jun, Chronic pain G89.29 [facility] [address] [facility] [id number] [address] [place] [address] Jun, Bipolar I disorder, most rec ent episode (or current) mixed, moderate F31.62 [facility] [address] [facility] [id number] [address] [place] [phone] May, Chronic pain G89.29 [facility] [address] [facility] [id number] [address] [place] [address] Apr, [facility] [address] [place] [id number] [address] [place] [phone] Apr, Chronic pain G89.29 [facility] [address] [place] [id number] [address] [place] [phone] Apr, Primary osteoarthritis of ri ght knee M17.11 [facility] [address] [place] [id number] [address] [place] [address] Mar, [facility] [address] [facility] [id number] [address] [place] [address] Mar, BMI 50.0-59.9, adult Z68.43 and Bipolar disorder, in partial remission, most recent episode depressed F31.75 [facility] [address] [facility] [id number] [address] [place] [address] Mar, Diabetes E11.9 ; Pure hyperc holesterolemia E78.00 ; Essential hypertension I10 ; Nausea with vomiting, unspecified R11.2 and Headache, unspecified headache type R51 [facility] [address] [facility] [id number] [address] [place] [address] Mar, Bipolar I disorder, most rec ent episode (or current) mixed, moderate F31.62 [facility] [address] [facility] [id number] [address] [place] [address] 16 Mar, 2018 Bipolar I disorder, most rec ent episode (or current) mixed, moderate F31.62 [facility] [address] [facility] [id number] [address] [place] [address] Mar, Chronic pain G89.29 [facility] [address] [facility] [id number] [address] [place] [phone] Mar, Bipolar I disorder, most rec ent episode (or current) mixed, moderate F31.62 [facility] [address] [facility] [id number] [address] [place] [address] Feb, Bipolar I disorder, most rec ent episode (or current) mixed, moderate F31.62 [facility] [address] [facility] [id number] [address] [place] [address] Feb, Chronic pain G89.29 [facility] [address] [place] [id number] [address] [place] [address] Feb, Decubitus ulcer of right josselin t, stage 3 L89.893 and BMI 50.0-59.9, adult Z68.43 [facility] [address] [facility] [id number] [address] [place] [address] Feb, Bipolar I disorder, most rec ent episode (or current) mixed, moderate F31.62 [facility] [address] [facility] [id number] [address] [place] [phone] Feb, [facility] [address] [facility] [id number] [address] [place] [address] January, [facility] [address] [facility] [id number] [address] [place] [address] January, Chronic pain G89.29 [facility] [address] [facility] [id number] [address] [place] [address] January, Bipolar I disorder, most rec ent episode (or current) mixed, moderate F31.62 [place] [address] [place] [id number] [address] [place] [address] January, Bipolar I disorder, most rec ent episode (or current) mixed, moderate F31.62 [place] [address] [place] [id number] [address] [place] [address] Dec, Bipolar I disorder, most rec ent episode (or current) mixed, moderate F31.62 and BMI 50.0-59.9, adult Z68.43 [place] [address] [address] Dec, Bipolar I disorder, most rec ent episode (or current) mixed, moderate F31.62 [place] [address] [address] Dec, Chronic pain G89.29 [place] [address] [place] [id number] [place] [address] Dec, DM neuro manif type II E11.4 9 ; Right flank pain R10.9 ; 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 ; Encounter for medication monitoring Z51.81 and BMI 50.0-59.9, adult Z68.43 [place] [address] [address] Dec, Bipolar I disorder, most rec ent episode (or current) mixed, moderate F31.62 [place] [address] [place] [id number] [address] [place] [address] Nov, Bipolar I disorder, most rec ent episode (or current) mixed, moderate F31.62 [place] [address] [place] [id number] [address] [place] [address] Nov, Chronic pain G89.29 [place] [address] [place] [id number] [place] [address] Nov, Bipolar I disorder, most rec ent episode (or current) mixed, moderate F31.62 [place] [address] [place] [id number] [place] [phone] Nov, Hypokalemia E87.6 [place] [address] [place] [id number] [place] [address] Nov, Bipolar I disorder, most rec ent episode (or current) mixed, moderate F31.62 [place] [address] [place] [id number] [place] [address] Oct, Chronic pain G89.29 [place] [address] [place] [id number] [place] [address] Oct, BMI 50.0-59.9, adult Z68.43 and Bipolar I disorder, most recent episode (or current) mixed, moderate F31.62 [place] [address] [place] [id number] [place] [address] Oct, Bipolar I disorder, most rec ent episode (or current) mixed, moderate F31.62 [place] [address] [address] Oct, [place] [address] [address] Oct, Hypokalemia E87.6 [place] [address] [place] [id number] [place] [address] Oct, DM neuro manif type II E11.4 9 [place] [address] [address] Oct, Bipolar I disorder, most rec ent episode (or current) mixed, moderate F31.62 [place] [address] [place] [id number] [place] [address] Oct, Bipolar I disorder, most rec ent episode (or current) mixed, moderate F31.62 [place] [address] [place] [id number] [place] [address] 14 Oct, 2017 Hyperkalemia E87.5 ; Falling R29.6 ; BMI 50.0-59.9, adult Z68.43 and Acute left ankle pain M25.572 [place] [id number] [place] [address] 08 Oct, 2017 DM neuro manif type II E11.4 9 [facility] [address] [place] [id number] [address] [place] [address] Oct, [facility] [address] [place] [id number] [place] [address] Sep, Chronic pain G89.29 [place] [address] [place] [id number] [address] [place] [address] Sep, [place] [address] [place] [id number] [place] [address] Sep, Bilateral primary osteoarthr itis of knee M17.0 [place] [address] [address] Sep, Generalized edema R60.1 [place] [address] [address] 16 Sep, 2017 Bipolar I disorder, most rec ent episode (or current) mixed, moderate F31.62 [place] [address] [address] 15 Sep, 2017 Hypoxia R09.02 ; Other hyper volemia E87.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 ; Anemia of chronic illness D63.8 and BMI 50.0- 59.9, adult Z68.43 [place] [address] [address] Sep, [place] [address] [address] Sep, Bipolar I disorder, most rec ent episode (or current) mixed, moderate F31.62 [place] [address] [place] [address] Aug, Chronic pain G89.29 [facility] [address] [facility] [id number] [address] [place] [address] Aug, Generalized edema R60.1 [facility] [address] [facility] [id number] [address] [place] [address] 18 Aug, 2017 [facility] [address] [place] [id number] [address] [place] [address] 18 Aug, 2017 [facility] [address] [facility] [id number] [address] [place] [phone] 14 Aug, 2017 Bipolar I disorder, most rec ent episode (or current) mixed, moderate F31.62 [facility] [address] [place] [id number] [address] [place] [phone] 07 Aug, 2017 Bipolar I disorder, most rec ent episode (or current) mixed, moderate F31.62 [place] [address] [place] [id number] [address] [place] [address] 04 Aug, 2017 Chronic pain G89.29 [facility] [address] [facility] [id number] [address] [place] [phone] 30 Jul, 2017 Bipolar I disorder, most rec ent episode (or current) mixed, moderate F31.62 [facility] [address] [facility] [id number] [address] [place] [address] Jul, Bipolar I disorder, most rec ent episode (or current) mixed, moderate F31.62 and BMI 60.0-69.9, adult Z68.44 [facility] [address] [facility] [id number] [address] [place] [id number] 16 Jul, 2017 Bipolar I disorder, most rec ent episode (or current) mixed, moderate F31.62 [facility] [address] [facility] [id number] [address] [place] [id number] 06 Jul, 2017 Chronic pain G89.29 [facility] [address] [place] [id number] [address] [place] [phone] Jul, Bipolar I disorder, most rec ent episode (or current) mixed, moderate F31.62 [facility] [address] [facility] [id number] [address] [place] [phone] Jun, Polyneuropathy associated wi th underlying disease G63 and Diabetes E11.9 [facility] [address] [facility] [id number] [address] [place] [phone] 16 Jun, 2017 Bipolar I disorder, most rec ent episode (or current) mixed, moderate F31.62 [facility] [address] [facility] [id number] [address] [place] [id number] Jun, Chronic pain G89.29 [facility] [address] [facility] [id number] [address] [place] [phone] May, Bipolar I disorder, most rec ent episode (or current) mixed, moderate F31.62 [place] [address] [place] [id number] [address] [place] [phone] May, Bipolar I disorder, most rec ent episode (or current) mixed, moderate F31.62 [facility] [address] [facility] [id number] [address] [place] [phone] 20 May, 2017 Diabetic polyneuropathy asso ciated with type 2 diabetes mellitus E11.42 [facility] [address] [facility] [id number] [address] [place] [phone] 18 May, 2017 Bipolar I disorder, most rec ent episode (or current) mixed, moderate F31.62 [facility] [address] [facility] [id number] [address] [place] [phone] 13 May, 2017 Bipolar I disorder, most rec ent episode (or current) mixed, moderate F31.62 [facility] [address] [facility] [id number] [address] [place] [phone] May, Chronic pain G89.29 [facility] [address] [facility] [id number] [address] [place] [phone] Apr, Bipolar I disorder, most rec ent episode (or current) mixed, moderate F31.62 [facility] [address] [id number] [address] [place] [id number] Apr, [facility] [address] [id number] [address] [place] [phone] Apr, Chronic pain G89.29 and DM n euro manif type II E11.49 [facility] [address] [id number] [address] [place] [id number] Apr, [facility] [address] [id number] [address] [place] [phone] Apr, Bipolar I disorder, most rec ent episode (or current) mixed, moderate F31.62 [facility] [address] [facility] [id number] [address] [place] [address] Apr, Chronic pain G89.29 [facility] [address] [facility] [id number] [address] [place] [phone] Apr, Iliotibial band syndrome, le ft M76.32 [facility] [address] [facility] [id number] [address] [place] [phone] Apr, Bipolar I disorder, most rec ent episode (or current) mixed, moderate F31.62 [facility] [address] [facility] [id number] [address] [place] [phone] Mar, Bipolar I disorder, most rec ent episode (or current) mixed, moderate F31.62 [facility] [address] [facility] [id number] [address] [place] [phone] Mar, Bipolar I disorder, most rec ent episode (or current) mixed, moderate F31.62 [facility] [address] [facility] [id number] [address] [place] [phone] Mar, [facility] [address] [facility] [id number] [address] [place] [phone] Mar, Bipolar I disorder, most rec ent episode (or current) mixed, moderate F31.62 [facility] [address] [facility] [id number] [address] [place] [phone] Mar, Chronic pain G89.29 [facility] [address] [id number] [address] [place] [phone] Mar, Bipolar I disorder, most rec ent episode (or current) mixed, moderate F31.62 [facility] [address] [facility] [id number] [address] [place] [phone] Mar, Bipolar I disorder, most rec ent episode (or current) mixed, moderate F31.62 [facility] [address] [id number] [address] [place] [phone] Mar, Acute pain of left knee M25. 562 ; Left hip pain M25.552 ; Generalized edema R60.1 and Tongue swelling R22.0 [facility] [address] [facility] [id number] [address] [place] [phone] Mar, [facility] [address] [facility] [id number] [address] [place] [phone] Feb, Chronic pain G89.29 [facility] [address] [facility] [id number] [address] [place] [address] Feb, Diabetes E11.9 [facility] [address] [facility] [id number] [address] [place] [phone] January, Chronic pain G89.29 [facility] [address] [facility] [id number] [address] [place] [phone] January, [facility] [address] [facility] [id number] [address] [place] [phone] January, Bipolar I disorder, most rec ent episode (or current) mixed, moderate F31.62 [facility] [address] [facility] [id number] [address] [place] [id number] Dec, Bipolar I disorder, most rec ent episode (or current) mixed, moderate F31.62 [facility] [address] [facility] [id number] [address] [place] [phone] 24 Apr, 2017 Chronic pain G89.29 [facility] [address] [id number] [address] [place] [phone] Dec, Bipolar I disorder, most rec ent episode (or current) mixed, moderate F31.62 [facility] [address] [facility] [id number] [address] [place] [address] Dec, Diabetes E11.9 ; Essential h ypertension I10 ; Chronic pain G89.29 and Morbid obesity E66.01 [facility] [address] [facility] [id number] [address] [place] [phone] Dec, [facility] [address] [facility] [id number] [address] [place] [phone] Dec, Bipolar I disorder, most rec ent episode (or current) mixed, moderate F31.62 [facility] [address] [facility] [id number] [address] [place] [phone] Dec, Bipolar I disorder, most rec ent episode (or current) mixed, moderate F31.62 [facility] [address] [facility] [id number] [address] [place] [phone] Nov, Chronic pain G89.29 [facility] [address] [facility] [id number] [address] [place] [phone] Nov, Bipolar I disorder, most rec ent episode (or current) mixed, moderate F31.62 [facility] [address] [facility] [id number] [address] [place] [phone] Nov, [facility] [address] [facility] [id number] [address] [place] [phone] Nov, Bipolar I disorder, most rec ent episode (or current) mixed, moderate F31.62 [facility] [address] [facility] [id number] [address] [place] [phone] Nov, Bipolar I disorder, most rec ent episode (or current) mixed, moderate F31.62 [facility] [address] [facility] [id number] [address] [place] [phone] Nov, [facility] [address] [id number] [address] [place] [phone] Nov, [facility] [address] [id number] [address] [place] [phone] Nov, [facility] [address] [id number] [address] [place] [id number] Oct, Chronic pain G89.29 [facility] [address] [id number] [address] [place] [id number] Oct, Bipolar I disorder, most rec ent episode (or current) mixed, moderate F31.62 [facility] [address] [id number] [address] [place] [phone] Oct, [facility] [address] [facility] [id number] [address] [place] [address] Oct, Chronic pain G89.29 ; Diabet es E11.9 ; Anxiety F41.9 and 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 [facility] [address] [id number] [address] [place] [phone] Oct, [facility] [address] [facility] [id number] [address] [place] [phone] Oct, Diabetes E11.9 [facility] [address] [id number] [address] [place] [phone] Oct, Bipolar I disorder, most rec ent episode (or current) mixed, moderate F31.62 [facility] [address] [id number] [address] [place] [phone] Sep, Chronic pain G89.29 [facility] [address] [facility] [id number] [address] [place] [address] Sep, Chronic pain G89.29 [facility] [address] [facility] [id number] [address] [place] [address] Aug, Chronic pain G89.29 [facility] [address] [facility] [id number] [address] [place] [phone] Jul, [facility] [address] [place] [id number] [address] [place] [phone] Jul, Diabetes E11.9 [facility] [address] [place] [id number] [address] [place] [address] Jul, Chronic pain G89.29 [place] [address] [place] [id number] [address] [place] [phone] Jul, Bipolar I disorder, most rec ent episode (or current) mixed, moderate F31.62 [place] [address] [place] [id number] [address] [place] [phone] Jun, Bipolar I disorder, most rec ent episode (or current) mixed, moderate F31.62 [place] [address] [place] [id number] [address] [place] [phone] Jun, [place] [address] [place] [id number] [address] [place] [phone] Jun, Bipolar I disorder, most rec ent episode (or current) mixed, moderate F31.62 [place] [address] [place] [id number] [address] [place] [address] May, Insomnia, unspecified type G 47.00 [place] [address] [place] [id number] [address] [place] [id number] May, Bipolar I disorder, most rec ent episode (or current) mixed, moderate F31.62 [place] [address] [facility] [id number] [address] [place] [phone] 14 May, 2016 [place] [address] [place] [id number] [address] [place] [phone] May, Bipolar I disorder, most rec ent episode (or current) mixed, moderate F31.62 [place] [address] [place] [id number] [address] [place] [address] May, Diabetes E11.9 and Essential hypertension I10 [facility] [address] [id number] [address] [place] [address] Apr, Chronic pain G89.29 [facility] [address] [facility] [id number] [address] [place] [id number] Apr, Bipolar I disorder, most rec ent episode (or current) mixed, moderate F31.62 [place] [address] [facility] [id number] [address] [place] [phone] Apr, [place] [address] [facility] [id number] [address] [place] [phone] Apr, [place] [address] [facility] [id number] [address] [place] [address] Mar, Chronic pain G89.29 ; Headac he, unspecified headache type R51 ; Neuropathy G62.9 ; Pain of right hip joint M25.551 and Essential hypertension I10 [place] [address] [facility] [id number] [address] [place] [address] Mar, Chronic pain G89.29 [place] [address] [facility] [id number] [address] [place] [address] Mar, Bipolar I disorder, most rec ent episode (or current) mixed, moderate F31.62 [place] [address] [facility] [id number] [address] [place] [phone] Feb, Bipolar I disorder, most rec ent episode (or current) mixed, moderate F31.62 and Insomnia, unspecified type G47.00 [place] [address] [facility] [id number] [address] [place] [address] Feb, Chronic pain G89.29 [place] [address] [facility] [id number] [address] [place] [phone] Feb, Bipolar I disorder, most rec ent episode (or current) mixed, moderate F31.62 [place] [address] [facility] [id number] [address] [place] [phone] January, Bipolar I disorder, most rec ent episode (or current) mixed, moderate F31.62 [facility] [address] [id number] [address] [place] [address] January, Chronic pain G89.29 [facility] [address] [facility] [id number] [address] [place] [phone] January, Chronic pain G89.29 and Esse ntial hypertension I10 [facility] [address] [id number] [address] [place] [address] January, Bipolar I disorder, most rec ent episode (or current) mixed, moderate F31.62 [facility] [address] [id number] [address] [place] [phone] Dec, [facility] [address] [facility] [id number] [address] [place] [phone] Dec, [facility] [address] [facility] [id number] [address] [place] [phone] Dec, [facility] [address] [facility] [id number] [address] [place] [phone] Dec, [facility] [address] [facility] [id number] [address] [place] [phone] Nov, Reactive airway disease J45. 909 [facility] [address] [place] [id number] [address] [place] [phone] Nov, [facility] [address] [facility] [id number] [address] [place] [phone] Nov, [facility] [address] [facility] [id number] [address] [place] [address] Nov, [facility] [address] [facility] [id number] [address] [place] [address] Nov, [facility] [address] [facility] [id number] [address] [place] [phone] Nov, Onychomycosis B35.1 ; Hammer toe M20.40 ; [place] or callus L84 and DM neuro manif type II E11.49 [facility] [address] [place] [id number] [address] [place] [address] Nov, Chronic pain G89.29 ; Leukoc ytosis D72.829 and Diabetes E11.9 [facility] [address] [facility] [id number] [address] [place] [phone] Nov, [place] [address] [place] [id number] [address] [place] [phone] Oct, Bronchitis J40 [facility] [address] [place] [id number] [address] [place] [phone] Oct, [place] [address] [phone] Oct, [place] [address] [address] Oct, Mastoiditis, unspecified lat erality H70.90 and Type 2 diabetes mellitus with complication E11.8 [place] [address] [place] [id number] [address] [place] [phone] Sep, [place] [address] [address] Sep, Dysuria R30.0 ; Cough R05 ; Benign prostatic hyperplasia with lower urinary tract symptoms, unspecified morphology N40.1 ; Hypokalemia E87.6 and Eustachian tube dysfunction, unspecified laterality H69.80 [place] [address] [place] [id number] [address] [place] [address] Sep, Moderate mixed bipolar I dis order F31.62 [place] [address] [phone] Sep, Hypokalemia E87.6 [place] [address] [place] [id number] [address] [place] [address] Sep, [place] [address] [phone] Sep, Upper respiratory tract infe ction, unspecified type J06.9 [facility] [address] [id number] [address] [place] [phone] Aug, [facility] [address] [id number] [address] [place] [address] Aug, Dysuria R30.0 [facility] [address] [id number] [address] [place] [phone] Aug, [facility] [address] [id number] [address] [place] [id number] Jul, [facility] [address] [id number] [address] [place] [address] Jul, [facility] [address] [id number] [address] [place] [phone] Jul, [facility] [address] [id number] [address] [place] [phone] Jul, [facility] [address] [id number] [address] [place] [phone] Jun, [facility] [address] [id number] [address] [place] [address] Jun, [facility] [address] [id number] [address] [place] [address] Jun, [facility] [address] [id number] [address] [place] [phone] May, [facility] [address] [id number] [address] [place] [address] May, Bipolar I disorder, most rec ent episode (or current) mixed, moderate 296.62 [facility] [address] [id number] [address] [place] [phone] 16 May, 2015 [facility] [address] [id number] [address] [place] [phone] May, Bipolar I disorder, most rec ent episode (or current) mixed, moderate 296.62 and Major depressive disorder, recurrent episode, severe, specified as with psychotic behavior 296.34 [facility] [address] [facility] [id number] [address] [place] [address] May, Bipolar I disorder, most rec ent episode (or current) mixed, moderate 296.62 [facility] [address] [facility] [id number] [address] [place] [phone] May, [facility] [address] [facility] [id number] [address] [place] [phone] Apr, [facility] [address] [facility] [id number] [address] [place] [address] Apr, [facility] [address] [place] [id number] [address] [place] [phone] Apr, Unspecified disorder of kidn ey and ureter 593.9 and Diabetes mellitus type 2, uncontrolled 250.02 [facility] [address] [place] [id number] [address] [place] [phone] Apr, [facility] [address] [facility] [id number] [address] [place] [phone] Apr, [facility] [address] [place] [id number] [address] [place] [phone] Apr, [facility] [address] [facility] [id number] [address] [place] [address] Apr, [facility] [address] [place] [id number] [address] [place] [phone] Apr, Diabetes mellitus type II, u ncontrolled 250.02 [facility] [address] [facility] [id number] [address] [place] [address] Apr, [facility] [address] [facility] [id number] [address] [place] [phone] Mar, [facility] [address] [facility] [id number] [address] [place] [phone] Mar, [facility] [address] [facility] [id number] [address] [place] [phone] Mar, [facility] [address] [place] [id number] [address] [place] [phone] Mar, Major depressive disorder, r ecurrent episode, severe, specified as with psychotic behavior 296.34 and Bipolar I disorder, most recent episode (or current) mixed, moderate 296.62 [facility] [address] [place] [id number] [address] [place] [address] Mar, Diabetes 250.00 ; Anuria 788 .5 ; Nausea and vomiting 787.01 and Diarrhea 787.91 [facility] [address] [place] [id number] [address] [place] [phone] Mar, Diabetes 250.00 [facility] [address] [place] [id number] [address] [place] [phone] Mar, [facility] [address] [place] [id number] [address] [place] [phone] Mar, Diabetes 250.00 [facility] [address] [facility] [id number] [address] [place] [phone] Mar, [facility] [address] [place] [id number] [address] [place] [id number] Mar, [facility] [address] [place] [id number] [address] [place] [phone] Mar, [facility] [address] [id number] [address] [place] [id number] Mar, [facility] [address] [id number] [address] [place] [id number] Mar, Bipolar I disorder, most rec ent episode (or current) mixed, moderate 296.62 and Major depressive disorder, recurrent episode, severe, specified as with psychotic behavior 296.34 [facility] [address] [id number] [address] [place] [id number] Mar, Magnesium deficiency 275.2 ; Hypokalemia 276.8 ; Nausea & vomiting 787.01 and Diabetes mellitus type 2, uncontrolled 250.02 [place] [address] [id number] Feb, [place] [address] [address] Feb, Bipolar I disorder, most rec ent episode (or current) mixed, moderate 296.[address] [id number] Feb, Nausea and vomiting 787.01 ; Left elbow pain 719.42 ; Anuria 788.5 and Diabetes 250.[address] [address] Feb, [address] [address] Feb, Hypopotassemia 276.8 and Hyp okalemia 276.[address] [address] Feb, Hypopotassemia 276.8 and Hyp okalemia 276.[address] [address] Feb, Seborrheic keratoses 702.[address] [address] Feb, Hypopotassemia 276.8 and Low magnesium levels 275.2 [place] [address] [address] January, [address] [address] January, [place] [address] [address] January, [place] [address] [address] January, Scalp lesion 709.9 [facility] [address] [id number] [address] [place] [id number] January, [facility] [address] [id number] [address] [place] [id number] Dec, Tear of medial cartilage or meniscus of knee, current 836.0 and 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 [facility] [address] [id number] [address] [place] [phone] Dec, [facility] [address] [id number] [address] [place] [phone] Dec, [facility] [address] [id number] [address] [place] [id number] Dec, Squamous cell carcinoma, 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 [facility] [address] [id number] [address] [place] [phone] Dec, [facility] [address] [id number] [address] [place] [phone] Dec, [facility] [address] [id number] [address] [place] [phone] Nov, [facility] [address] [id number] [address] [place] [id number] Nov, [facility] [address] [address] [id number] [address] [place] [address] Nov, [facility] [address] [id number] [address] [place] [address] Nov, [facility] [address] [id number] [address] [place] [address] Nov, [facility] [address] [id number] [address] [place] [address] Nov, [facility] [address] [id number] [address] [place] [address] Nov, [facility] [address] [id number] [address] [place] [address], [place] [address] Nov, 2014 [facility] [address] [id number] [address] [place] [address], [place] [address] Nov, [facility] [address] [id number] [address] [place] [address], [place] [address] Nov, 2014 [facility] [address] [id number] [address] [place] [address], [place] [address] Nov, 2014 [facility] [address] [id number] [address] [place] [address], [place] [address] Nov, [facility] [address] [id number] [address] [place] [address], [place] [address] Oct, 2014 [facility] [address] [id number] [address] [place] [address], [place] [address] Oct, 2014 [facility] [address] [id number] [address] [place] [address], [place] [address] Oct, 2014 [facility] [address] [id number] [address] [place] [address], [place] [address] Oct, 2014 [facility] [address] [id number] [address] [place] [address] Oct, 2014 [facility] [address] [id number] [address] [place] [address] Oct, 2014 [facility] [address] [id number] [address] [place] [address] Oct, 2014 [facility] [address] [id number] [address] [place] [address], [place] [address] Oct, 2014 [facility] [address] [id number] [address] [place] [address] Oct, 2014 [facility] [address] [id number] [address] [place] [address] Sep, [facility] [address] [id number] [address] [place] [address] Sep, [facility] [address] [id number] [address] [place] [address], [place] [address] Sep, [facility] [address] [id number] [address] [place] [address], [place] [address] Sep, [facility] [address] [id number] [address] [place] [address], [place] [address] Sep, [facility] [address] [id number] [address] [place] [address], [place] [address] Sep, [facility] [address] [id number] [address] [place] [address], [place] [address] Sep, [facility] [address] [id number] [address] [place] [address], [place] [address] Sep, [facility] [address] [id number] [address] [place] [address], [place] [address] Sep, [facility] [address] [id number] [address] [place] [address], [place] [address] Sep, [facility] [address] [id number] [address] [place] [address], [place] [address] Sep, [facility] [address] [id number] [address] [place] [address], [place] [address] Sep, [facility] [address] [id number] [address] [place] [address], [place] [address] Sep, [facility] [address] [id number] [address] [place] [address], [place] [address] Sep, [facility] [address] [id number] [address] [place] [address], [place] [address] Sep, [facility] [address] [id number] [address] [place] [address], [place] [address] Sep, [facility] [address] [id number] [address] [place] [address], [place] [address] Aug, [facility] [address] [id number] [facility] [place] [address] Aug, [facility] [address] [id number] [facility] [place] [address] Aug, [facility] [address] [id number] [facility] [place] [address] Aug, [facility] [address] [id number] [facility] [place] [address] Aug, [facility] [address] [id number] [facility] [place] [address] Aug, [facility] [address] [id number] [facility] [place] [address] Aug, [facility] [address] [id number] [address] [place] [address], [place] [address] Aug, [facility] [address] [id number] [address] [place] [address], [place] [address] Aug, [facility] [address] [id number] [address] [place] [address], [place] [address] Aug, [facility] [address] [id number] [address] [place] [address], [place] [address] Aug, [facility] [address] [place] [id number] Aug, [facility] [address] [id number] [address] [place] [address], [place] [address] Aug, [facility] [address] [id number] [address] [place] [address], [place] [address] Aug, [facility] [address] [id number] [address] [place] [address], [place] [address] Aug, [facility] [address] [id number] [address] [place] [address], [place] [address] Aug, [facility] [address] [id number] [address] [place] [address], [place] [address] Aug, [facility] [address] [id number] [address] [place] [address], [place] [address] Aug, [facility] [address] [id number] [address] [place] [address], [place] [address] Aug, [facility] [address] [id number] [address] [place] [address], [place] [address] Aug, [facility] [address] [id number] [address] [place] [address], [place] [address] Aug, [facility] [address] [id number] [address] [place] [address], [place] [address] Aug, [facility] [address] [id number] [address] [place] [address], [place] [address] Aug, [facility] [address] [id number] [address] [place] [address], [place] [address] Aug, [facility] [address] [id number] [address] [place] [address], [place] [address] Aug, [facility] [address] [id number] [address] [place] [address], [place] [address] Aug, [facility] [address] [id number] [address] [place] [address], [place] [address] Aug, [facility] [address] [id number] [address] [place] [address], [place] [address] Aug, [facility] [address] [id number] [address] [place] [address], [place] [address] Aug, [facility] [address] [id number] [address] [place] [address], [place] [address] Aug, [facility] [address] [id number] [address] [place] [address], [place] [address] Jul, [facility] [address] [id number] [address] [place] [address], [place] [address] Jul, [facility] [address] [id number] [address] [place] [address] Jul, [facility] [address] [id number] [address] [place] [address], [place] [address] Jul, [facility] [address] [id number] [address] [place] [address] Jul, [facility] [address] [id number] [address] [place] [address], [place] [address] Jul, [facility] [address] [id number] [address] [place] [address] Jul, [facility] [address] [id number] [address] [place] [address], [place] [address] Jul, [facility] [address] [id number] [address] [place] [address], [place] [address] Jul, [facility] [address] [id number] [address] [place] [address] Jul, [facility] [address] [id number] [address] [place] [address], [place] [address] Jun, [facility] [address] [id number] [address] [place] [address] Jun, [facility] [address] [id number] [address] [place] [address] Jun, [facility] [address] [id number] [address] [place] [address] Jun, [facility] [address] [id number] [address] [place] [address] Jun, [facility] [address] [id number] [address] [place] [address] Jun, [facility] [address] [id number] [address] [place] [address] Jun, [facility] [address] [id number] [address] [place] [address] Jun, [facility] [address] [id number] [address] [place] [address], [place] [address] Jun, [facility] [address] [id number] [address] [place] [address], [place] [address] Jun, [facility] [address] [id number] [address] [place] [address], [place] [address] 29 May, 2013 [facility] [address] [id number] [address] [place] [address], [place] [address] 29 Sep, 2013 [facility] [address] [id number] [address] [place] [address], [place] [address] 26 May, 2013 [facility] [address] [id number] [address] [place] [address], [place] [address] 26 May, 2013 [facility] [address] [id number] [address] [place] [address], [place] [address] 17 May, 2013 [facility] [address] [id number] [address] [place] [address], [place] [address] 17 May, 2013 [facility] [address] [id number] [address] [place] [address], [place] [address] 15 May, 2013 [facility] [address] [id number] [address] [place] [address], [place] [address] 15 May, 2013 [facility] [address] [id number] [address] [place] [address], [place] [address] 15 May, 2013 [facility] [address] [id number] [address] [place] [address], [place] [address] 15 May, 2013 [facility] [address] [id number] [address] [place] [address], [place] [address] 10 Sep, 2013 [facility] [address] [id number] [address] [place] [address], [place] [address] 10 May, 2013 [facility] [address] [id number] [address] [place] [address], [place] [address] 09 May, 2013 [facility] [address] [id number] [address] [place] [address], [place] [address] May, [facility] [address] [id number] [facility] [place] [address] May, [facility] [address] [id number] [address] [place] [address], [place] [address] May, [facility] [address] [id number] [address] [place] [address], [place] [address] Apr, [facility] [address] [id number] [address] [place] [address], [place] [address] Apr, [facility] [address] [id number] [address] [place] [address], [place] [address] Apr, [facility] [address] [id number] [address] [place] [address], [place] [address] Apr, [facility] [address] [id number] [address] [place] [address], [place] [address] Apr, [facility] [address] [id number] [address] [place] [address], [place] [address] Apr, [facility] [address] [id number] [address] [place] [address], [place] [address] Apr, [facility] [address] [id number] [address] [place] [address], [place] [address] Apr, [facility] [address] [id number] [address] [place] [address], [place] [address] Apr, [facility] [address] [id number] [address] [place] [address], [place] [address] Apr, [facility] [address] [id number] [address] [place] [address], [place] [address] Apr, [facility] [address] [id number] [address] [place] [address], [place] [address] Apr, [facility] [address] [id number] [address] [place] [address], [place] [address] Apr, [facility] [address] [id number] [address] [place] [address], [place] [address] Apr, [facility] [address] [id number] [address] [place] [address], [place] [address] Apr, [facility] [address] [id number] [address] [place] [address], [place] [address] Mar, [facility] [address] [id number] [address] [place] [address], [place] [address] Mar, [facility] [address] [id number] [address] [place] [address], [place] [address] Mar, [facility] [address] [id number] [address] [place] [address], [place] [address] Mar, [facility] [address] [id number] [address] [place] [address], [place] [address] Mar, [facility] [address] [id number] [address] [place] [address], [place] [address] Mar, [facility] [address] [id number] [address] [place] [address], [place] [address] Mar, [facility] [address] [id number] [address] [place] [address], [place] [address] Mar, [facility] [address] [id number] [address] [place] [address], [place] [address] Mar, [facility] [address] [id number] [address] [place] [address], [place] [address] Mar, [facility] [address] [id number] [address] [place] [address], [place] [address] Mar, [facility] [address] [id number] [address] [place] [address], [place] [address] Mar, [facility] [address] [id number] [address] [place] [address], [place] [address] Mar, [facility] [address] [id number] [address] [place] [address], [place] [address] Mar, [facility] [address] [id number] [facility] [place] [address] Mar, 2013 [facility] [address] [id number] [facility] [place] [address] Mar, 2013 [facility] [address] [id number] [facility] [place] [address] Mar, [facility] [address] [id number] [facility] [place] [address] Mar, [facility] [address] [id number] [facility] [place] [address] Feb, [facility] [address] [id number] [address] [place] [address], [place] [address] Feb, [facility] [address] [id number] [address] [place] [address], [place] [address] Feb, [facility] [address] [id number] [address] [place] [address], [place] [address] Feb, [facility] [address] [id number] [address] [place] [address], [place] [address] Feb, [facility] [address] [id number] [address] [place] [address], [place] [address] Feb, [facility] [address] [id number] [address] [place] [address], [place] [address] Feb, [facility] [address] [id number] [address] [place] [address], [place] [address] Feb, [facility] [address] [id number] [address] [place] [address], [place] [address] Feb, [facility] [address] [id number] [address] [place] [address], [place] [address] Feb, [facility] [address] [id number] [address] [place] [address], [place] [address] Feb, [facility] [address] [id number] [address] [place] [address], [place] [address] Feb, [facility] [address] [id number] [facility] [place] [address] Feb, [facility] [address] [id number] [address] [place] [address], [place] [address] Feb, [facility] [address] [id number] [address] [place] [address], [place] [address] January, [facility] [address] [id number] [address] [place] [address], [place] [address] January, [facility] [address] [id number] [address] [place] [address], [place] [address] January, [facility] [address] [id number] [address] [place] [address], [place] [address] January, [facility] [address] [id number] [address] [place] [address], [place] [address] January, [facility] [address] [id number] [address] [place] [address], [place] [address] January, [facility] [address] [id number] [address] [place] [address], [place] [address] January, [facility] [address] [id number] [address] [place] [address], [place] [address] January, [facility] [address] [id number] [address] [place] [address], [place] [address] January, [facility] [address] [id number] [address] [place] [address], [place] [address] January, [facility] [address] [id number] [address] [place] [address], [place] [address] January, [facility] [address] [id number] [address] [place] [address], [place] [address] January, [facility] [address] [id number] [address] [place] [address], [place] [address] January, [facility] [address] [id number] [facility] [place] [address] January, [facility] [address] [id number] [address] [place] [address], [place] [address] Dec, [facility] [address] [id number] [address] [place] [address], [place] [address] Dec, [facility] [address] [id number] [address] [place] [address], [place] [address] Dec, [facility] [address] [id number] [address] [place] [address], [place] [address] Dec, [facility] [address] [id number] [address] [place] [address], [place] [address] Dec, [facility] [address] [id number] [address] [place] [address], [place] [address] Dec, [facility] [address] [id number] [address] [place] [address], [place] [address] Dec, [facility] [address] [id number] [address] [place] [address], [place] [address] Dec, [facility] [address] [id number] [address] [place] [address], [place] [address] Dec, [facility] [address] [id number] [address] [place] [address], [place] [address] Dec, [facility] [address] [id number] [address] [place] [address], [place] [address] Nov, [facility] [address] [id number] [address] [place] [address], [place] [address] Nov, [facility] [address] [id number] [address] [place] [address], [place] [address] Nov, [facility] [address] [id number] [address] [place] [address], [place] [address] Nov, [facility] [address] [id number] [address] [place] [address], [place] [address] Nov, [facility] [address] [id number] [address] [place] [address], [place] [address] 08 Nov, 2013 [facility] [address] [id number] [address] [place] [address], [place] [address] Nov, [facility] [address] [id number] [address] [place] [address], [place] [address] Nov, [facility] [address] [id number] [address] [place] [address], [place] [address] Nov, [facility] [address] [id number] [address] [place] [address], [place] [address] Nov, [facility] [address] [id number] [address] [place] [address], [place] [address] Oct, [facility] [address] [id number] [address] [place] [address], [place] [address] Oct, [facility] [address] [id number] [address] [place] [address], [place] [address] Oct, [facility] [address] [id number] [address] [place] [address], [place] [address] Oct, [facility] [address] [id number] [address] [place] [address], [place] [address] Oct, [facility] [address] [id number] [address] [place] [address], [place] [address] Oct, [facility] [address] [id number] [address] [place] [address], [place] [address] 14 Oct, 2013 [facility] [address] [id number] [address] [place] [address], [place] [address] Oct, [facility] [address] [id number] [address] [place] [address], [place] [address] Oct, [facility] [address] [id number] [address] [place] [address], [place] [address] Oct, [facility] [address] [id number] [address] [place] [address], [place] [address] 04 Oct, 2013 [facility] [address] [id number] [address] [place] [address], [place] [address] Oct, [facility] [address] [id number] [address] [place] [address], [place] [address] Oct, [facility] [address] [id number] [address] [place] [address], [place] [address] Oct, [facility] [address] [id number] [address] [place] [address], [place] [address] Sep, [facility] [address] [id number] [address] [place] [address], [place] [address] Sep, [facility] [address] [id number] [address] [place] [address], [place] [address] Sep, [facility] [address] [id number] [address] [place] [address], [place] [address] Sep, [facility] [address] [id number] [address] [place] [address], [place] [address] Sep, [facility] [address] [id number] [address] [place] [address], [place] [address] Sep, [facility] [address] [id number] [address] [place] [address], [place] [address] Sep, [facility] [address] [id number] [address] [place] [address], [place] [address] Sep, [facility] [address] [id number] [address] [place] [address], [place] [address] Sep, [facility] [address] [id number] [address] [place] [address], [place] [address] Sep, [facility] [address] [id number] [address] [place] [address], [place] [address] Aug, [facility] [address] [id number] [address] [place] [address] [address] Aug, [facility] [address] [id number] [address] [place] [address], [place] [address] Jul, [facility] [address] [id number] [address] [place] [address], [place] [address] Jul, [facility] [address] [id number] [address] [place] [address], [place] [address] Jul, [facility] [address] [id number] [address] [place] [address], [place] [address] Jul, [facility] [address] [id number] [address] [place] [address], [place] [address] Jul, [facility] [address] [id number] [address] [place] [address], [place] [address] Jul, [facility] [address] [id number] [address] [place] [address], [place] [address] Jul, [facility] [address] [id number] [address] [place] [address], [place] [address] Jul, [facility] [address] [id number] [address] [place] [address], [place] [address] Jul, [facility] [address] [id number] [address] [place] [address], [place] [address] Jul, [facility] [address] [id number] [address] [place] [address] Jul, [facility] [address] [id number] [address] [place] [address] Jul, [facility] [address] [id number] [address] [place] [address], [place] [address] Jul, [facility] [address] [id number] [address] [place] [address] Jul, [facility] [address] [id number] [address] [place] [address] Jul, [facility] [address] [id number] [address] [place] [address], [place] [address] 05 Jul, 2012 [facility] [address] [id number] [address] [place] [address], [place] [address] 05 Jul, 2012 [facility] [address] [id number] [address] [place] [address], [place] [address] Jul, 2012 [facility] [address] [id number] [address] [place] [address], [place] [address] Jul, 2012 [facility] [address] [id number] [address] [place] [address], [place] [address] Jun, 2012 [facility] [address] [id number] [address] [place] [address], [place] [address] Jun, 2012 [facility] [address] [id number] [address] [place] [address], [place] [address] Jun, 2012 [facility] [address] [id number] [address] [place] [address], [place] [address] Jun, 2012 [facility] [address] [id number] [address] [place] [address], [place] [address] Jun, 2012 [facility] [address] [id number] [address] [place] [address], [place] [address] Jun, 2012 [facility] [address] [id number] [address] [place] [address] Jun, 2012 [facility] [address] [id number] [address] [place] [address], [place] [address] Jun, 2012 [facility] [address] [id number] [address] [place] [address] Jun, [facility] [address] [id number] [address] [place] [address], [place] [address] Jun, [facility] [address] [id number] [address] [place] [address] Jun, [facility] [address] [id number] [address] [place] [address] May, [facility] [address] [id number] [address] [place] [address], [place] [address] 25 May, 2012 [facility] [address] [id number] [address] [place] [address], [place] [address] May, 2012 [facility] [address] [id number] [address] [place] [address], [place] [address] 17 May, 2012 [facility] [address] [id number] [address] [place] [address], [place] [address] 11 May, 2012 [facility] [address] [id number] [address] [place] [address], [place] [address] 10 May, 2012 [facility] [address] [id number] [address] [place] [address], [place] [address] May, [facility] [address] [id number] [address] [place] [address], [place] [address] 05 May, 2013 [facility] [address] [id number] [address] [place] [address], [place] [address] Apr, [facility] [address] [id number] [address] [place] [address], [place] [address] Apr, [facility] [address] [id number] [address] [place] [address], [place] [address] Apr, [facility] [address] [id number] [address] [place] [address], [place] [address] Apr, [facility] [address] [id number] [address] [place] [address], [place] [address] Apr, [facility] [address] [id number] [address] [place] [address], [place] [address] Mar, [facility] [address] [id number] [address] [place] [address], [place] [address] Mar, [facility] [address] [id number] [address] [place] [address], [place] [address] Mar, [facility] [address] [id number] [address] [place] [address], [place] [address] Mar, [facility] [address] [id number] [address] [place] [address], [place] [address] Mar, [facility] [address] [id number] [address] [place] [address], [place] [address] Mar, [facility] [address] [id number] [address] [place] [address], [place] [address] Mar, [facility] [address] [id number] [address] [place] [address], [place] [address] Mar, [facility] [address] [id number] [address] [place] [address], [place] [address] Feb, [facility] [address] [id number] [address] [place] [address], [place] [address] Feb, [facility] [address] [id number] [address] [place] [address], [place] [address] January, [facility] [address] [id number] [address] [place] [address], [place] [address] January, [facility] [address] [id number] [address] [place] [address], [place] [address] Dec, [facility] [address] [id number] [address] [place] [address], [place] [address] Dec, [facility] [address] [id number] [address] [place] [address], [place] [address] Nov, [facility] [address] [id number] [address] [place] [address], [place] [address] Nov, [facility] [address] [id number] [address] [place] [address], [place] [address] Nov, [facility] [address] [id number] [address] [place] [address], [place] [address] Nov, [facility] [address] [id number] [address] [place] [address], [place] [address] Oct, [facility] [address] [id number] [address] [place] [address], [place] [address] Oct, [facility] [address] [id number] [address] [place] [address], [place] [address] Oct, [facility] [address] [id number] [address] [place] [address], [place] [address] Oct, [facility] [address] [id number] [address] [place] [address], [place] [address] 16 Oct, 2012 [facility] [address] [id number] [address] [place] [address], [place] [address] 14 Oct, 2012 [facility] [address] [id number] [address] [place] [address], [place] [address] 08 Oct, 2012 [facility] [address] [id number] [address] [place] [address], [place] [address] 07 Oct, 2012 [facility] [address] [id number] [address] [place] [address], [place] [address] 03 Oct, 2012 [facility] [address] [id number] [address] [place] [address], [place] [address] Sep, [facility] [address] [id number] [address] [place] [address], [place] [address] Sep, [facility] [address] [id number] [address] [place] [address], [place] [address] Sep, [facility] [address] [id number] [address] [place] [address], [place] [address] Sep, [facility] [address] [id number] [address] [place] [address], [place] [address] Sep, [facility] [address] [id number] [address] [place] [address], [place] [address] Sep, [facility] [address] [id number] [address] [place] [address], [place] [address] Sep, [facility] [address] [id number] [address] [place] [address], [place] [address] Sep, [facility] [address] [id number] [address] [place] [address], [place] [address] Aug, [facility] [address] [id number] [address] [place] [address], [place] [address] Aug, [facility] [address] [id number] [address] [place] [address], [place] [address] Aug, [facility] [address] [id number] [address] [place] [address], [place] [address] Aug, [facility] [address] [id number] [address] [place] [address], [place] [address] Aug, [facility] [address] [id number] [address] [place] [address], [place] [address] Aug, [facility] [address] [id number] [address] [place] [address], [place] [address] Aug, [facility] [address] [id number] [address] [place] [address], [place] [address] Aug, [facility] [address] [id number] [address] [place] [address], [place] [address] Jul, [facility] [address] [id number] [address] [place] [address], [place] [address] Jul, [facility] [address] [id number] [address] [place] [address], [place] [address] Jul, [facility] [address] [id number] [address] [place] [address], [place] [address] Jul, [facility] [address] [id number] [address] [place] [address], [place] [address] Jul, [facility] [address] [id number] [address] [place] [address], [place] [address] Jul, [facility] [address] [id number] [address] [place] [address], [place] [address] Jun, [facility] [address] [id number] [address] [place] [address], [place] [address] 25 Jun, 2012 [facility] [address] [id number] [address] [place] [address], [place] [address] Jun, [facility] [address] [id number] [address] [place] [address], [place] [address] Jun, [facility] [address] [id number] [address] [place] [address], [place] [address] Jun, [facility] [address] [id number] [address] [place] [address], [place] [address] Jun, [facility] [address] [id number] [address] [place] [address], [place] [address] 19 Jun, 2012 [facility] [address] [id number] [address] [place] [address], [place] [address] 10 Jun, 2012 [facility] [address] [id number] [address] [place] [address], [place] [address] 10 Jun, 2012 [facility] [address] [id number] [address] [place] [address], [place] [address] 26 May, 2012 [facility] [address] [id number] [address] [place] [address], [place] [address] 24 May, 2012 [facility] [address] [id number] [address] [place] [address], [place] [address] 18 May, 2012 [facility] [address] [id number] [address] [place] [address], [place] [address] 30 Apr, 2012 [facility] [address] [id number] [address] [place] [address], [place] [address] 29 Apr, 2012 [facility] [address] [id number] [address] [place] [address], [place] [address] 18 Apr, 2012 [facility] [address] [id number] [address] [place] [address], [place] [address] 14 Apr, 2012 [facility] [address] [id number] [address] [place] [address], [place] [address] Apr, [facility] [address] [id number] [address] [place] [address], [place] [address] Apr, [facility] [address] [id number] [address] [place] [address], [place] [address] Mar, [facility] [address] [id number] [address] [place] [address], [place] [address] Mar, [facility] [address] [id number] [address] [place] [address], [place] [address] Mar, [facility] [address] [id number] [address] [place] [address], [place] [address] Mar, [facility] [address] [id number] [address] [place] [address], [place] [address] Feb, [facility] [address] [id number] [address] [place] [address], [place] [address] Feb, [facility] [address] [id number] [address] [place] [address], [place] [address] Feb, [facility] [address] [id number] [address] [place] [address], [place] [address] Feb, [facility] [address] [id number] [address] [place] [address], [place] [address] Feb, [facility] [address] [id number] [address] [place] [address], [place] [address] January, [facility] [address] [id number] [address] [place] [address], [place] [address] January, [facility] [address] [id number] [address] [place] [address], [place] [address] January, [facility] [address] [id number] [address] [place] [address], [place] [address] January, [facility] [address] [id number] [address] [place] [address], [place] [address] January, [facility] [address] [id number] [address] [place] [address], [place] [address] January, [facility] [address] [id number] [address] [place] [address], [place] [address] 24 Dec, 2011 [facility] [address] [id number] [address] [place] [address], [place] [address] 24 Dec, 2011 [facility] [address] [id number] [address] [place] [address], [place] [address] Dec, [facility] [address] [id number] [address] [place] [address], [place] [address] Dec, [facility] [address] [id number] [address] [place] [address], [place] [address] Dec, [facility] [address] [id number] [address] [place] [address], [place] [address] 27 Nov, 2011 [facility] [address] [id number] [address] [place] [address], [place] [address] 14 Nov, 2011 [facility] [address] [id number] [address] [place] [address], [place] [address] 12 Nov, 2011 [facility] [address] [id number] [address] [place] [address], [place] [address] 07 Nov, 2011 [facility] [address] [id number] [address] [place] [address], [place] [address] 29 Oct, 2011 [facility] [address] [id number] [address] [place] [address], [place] [address] 28 Oct, 2011 [facility] [address] [id number] [address] [place] [address], [place] [address] 24 Oct, 2011 [facility] [address] [id number] [address] [place] [address], [place] [address] 13 Oct, 2011 [facility] [address] [id number] [address] [place] [address], [place] [address] 08 Oct, 2011 [facility] [address] [id number] [address] [place] [address], [place] [address] Sep, [facility] [address] [id number] [address] [place] [address], [place] [address] Sep, [facility] [address] [id number] [address] [place] [address], [place] [address] Sep, [facility] [address] [id number] [address] [place] [address], [place] [address] Sep, [facility] [address] [id number] [address] [place] [address], [place] [address] Sep, [facility] [address] [id number] [address] [place] [address], [place] [address] Sep, [facility] [address] [id number] [address] [place] [address], [place] [address] Aug, [facility] [address] [id number] [address] [place] [address], [place] [address] Aug, [facility] [address] [id number] [address] [place] [address], [place] [address] Aug, [facility] [address] [id number] [address] [place] [address], [place] [address] Jul, [facility] [address] [id number] [address] [place] [address] Jul, [facility] [address] [id number] [address] [place] [address] Jul, [facility] [address] [id number] [address] [place] [address] Jul, [facility] [address] [id number] [address] [place] [address], [place] [address] Jun, [facility] [address] [id number] [address] [place] [address], [place] [address] Jun, [facility] [address] [id number] [address] [place] [address] Jun, [facility] [address] [id number] [address] [place] [address] 10 Jun, 2011 [facility] [address] [id number] [address] [place] [address], [place] [address] 10 Jun, 2011 [facility] [address] [id number] [address] [place] [address], [place] [address] 10 Jun, 2011 [facility] [address] [id number] [address] [place] [address], [place] [address] 11 Mar, 2011 [facility] [address] [id number] [address] [place] [address], [place] [address] 18 Dec, 2010 [facility] [address] [id number] [address] [place] [address], [place] [address] 11 Dec, 2010 [facility] [address] [id number] [address] [place] [address], [place] [address] 18 Nov, 2010 [facility] [address] [id number] [address] [place] [address], [place] [address] 16 Nov, 2010 [facility] [address] [id number] [address] [place] [address], [place] [address] 10 Sep, 2010 [facility] [address] [id number] [address] [place] [address], [place] [address] 31 Aug, 2010 [facility] [address] [id number] [address] [place] [address], [place] [address] 29 Aug, 2010 [facility] [address] [id number] [address] [place] [address], [place] [address] 29 Aug, 2010 [facility] [address] [id number] [address] [place] [address], [place] [address] 29 Aug, 2010 [facility] [address] [id number] [address] [place] [address], [place] [address] 27 Aug, 2010 [facility] [address] [id number] [address] [place] [address], [place] [address] 14 Aug, 2010 [facility] [address] [id number] [address] [place] [address], [place] [address] 08 Aug, 2010 [facility] [address] [id number] [address] [place] [address], [place] [address] 08 Aug, 2010 [facility] [address] [id number] [address] [place] [address], [place] [address] Aug, [facility] [address] [id number] [address] [place] [address], [place] [address] Aug, [facility] [address] [id number] [address] [place] [address], [place] [address] Aug, [facility] [address] [id number] [address] [place] [address], [place] [address] Aug, [facility] [address] [id number] [address] [place] [address], [place] [address] Jul, [facility] [address] [id number] [address] [place] [address], [place] [address] Jul, [facility] [address] [id number] [address] [place] [address], [place] [address] Jul, [facility] [address] [id number] [address] [place] [address], [place] [address] Jul, [facility] [address] [id number] [address] [place] [address], [place] [address] Jul, [facility] [address] [id number] [address] [place] [address], [place] [address] Jul, [facility] [address] [id number] [address] [place] [address], [place] [address] 24 Jun, 2010 [facility] [address] [id number] [address] [place] [address], [place] [address] Jun, [facility] [address] [id number] [address] [place] [address], [place] [address] Jun, [facility] [address] [id number] [address] [place] [address], [place] [address] Jun, [facility] [address] [id number] [address] [place] [address], [place] [address] Apr, [facility] [address] [id number] [address] [place] [address], [place] [address] Mar, [facility] [address] [id number] [address] [place] [address], [place] [address] Feb, [facility] [address] [id number] [address] [place] [address], [place] [address] January, [facility] [address] [id number] [address] [place] [address], [place] [address] 15 Dec, 2009 [facility] [address] [id number] [address] [place] [address], [place] [address] Nov, [facility] [address] [id number] [address] [place] [address], [place] [address] 31 Aug, 2009 [facility] [address] [id number] [address] [place] [address], [place] [address] Aug, [facility] [address] [id number] [address] [place] [address] Aug, [facility] [address] [id number] [address] [place] [address], [place] [address] Jul, [facility] [address] [id number] [address] [place] [address] Jul, [facility] [address] [id number] [address] [place] [address] Jul, [facility] [address] [id number] [address] [place] [address] 30 Jun, 2009 [facility] [address] [id number] [address] [place] [address], [place] [address] 29 Jun, 2009 [facility] [address] [id number] [address] [place] [address] Jun, [facility] [address] [id number] [address] [place] [address], [place] [address] Jun, [facility] [address] [id number] [address] [place] [address] Jun, [facility] [address] [facility] [id number] [address] [place] [address] Jun, [facility] [address] [facility] [id number] [address] [place] [address] Apr, [facility] [address] [facility] [id number] [address] [place] [address] Apr, [facility] [address] [facility] [id number] [address] [place] [address] Feb, [facility] [address] [facility] [id number] [address] [place] [address] January, [facility] [address] [facility] [id number] [address] [place] [address] Dec, IMMUNIZATIONS No Known Immunizations SOCIAL HISTORY Never Assessed REASON FOR VISIT PLAN OF CARE VITAL SIGNS MEDICATIONS Unknown Medications RESULTS No Results PROCEDURES Procedure Date Ordered Result Body Site PSYTX PT&/FAMILY 45 MINUTES April 16, 2014 INSTRUCTIONS MEDICATIONS ADMINISTERED No Known Medications MEDICAL (GENERAL) HISTORY Type Description Date Medical History type II diabetes Medical History coronary artery disease stress test 15 Medical History chronic obstructive pulmonary disease (C OPD) Medical History gastroesophageal reflux disease (GERD) Medical History acute renal failure Medical History erectile dysfunction Medical History hyperlipidemia Medical History obesity Medical History skin cancer-basal cell R scientology (removed ) Medical History Arthritis Medical History [...] History inability to urinate 09/16/15 Hospitalization History [facility] mental health ea rly 1999's Hospitalization History hyperkalemia 10/2017 Hospitalization History fluid in lung
--- OUTSIDE RECORDS SUMMARY | 2020-03-01 17:06 | XMS REPORT ---
Author Author Michele Verduzco Doctor Organization [facility] Address Unknown Phone Unavailable Care Team Providers Care Rigging Up Worker Name Role Phone Migration, Doctor Unavailable Unavailable PROBLEMS Type Condition ICD9-CM Code VIT26-PJ Code Onset Dates Condition S tatus SNOMED Code Problem Benign prostatic hyperplasia with lower urinary tract symptoms, unspecified morphology N40.1 Active 69015 6007 Problem Diabetes E11.9 Active 04574884 Problem DM neuro manif type II E11.49 Active 66174524 Problem Leukocytosis D72.829 Active 2176737 06 Problem Chronic pain G89.29 Active 2592029 1 Problem Bipolar I disorder, most recent episode (or curr ent) mixed, moderate F31.62 Active 84890360 Problem Reactive airway disease J45.909 Active 006475180292 Problem Pure hypercholesterolemia E78.00 Acti ve 822465724 Problem Dysuria R30.0 Active 62831222 Problem Bipolar disorder, in partial remission, most rec ent episode depressed F31.75 Active 42303749 Problem Hypokalemia E87.6 Active 21756131 Problem Eustachian tube dysfunction, unspecified laterality H69.80 Active 19911877 Problem Cough R05 Active 80459378 Problem Diabetic polyneuropathy associated with type 2 d iabetes mellitus E11.42 Active 78822155 Problem Essential hypertension I10 Active 77428031 Problem Bilateral primary osteoarthritis of knee M17.0 Active 104558297 Problem Polyneuropathy associated with underlying disease G63 Active 858257695 Problem Retinal edema H35.81 Active 700605 6 Problem Lymphocytosis D72.820 Active 117587 09 Problem Anemia of chronic illness D63.8 Acti ve 886969211 Problem Chronic lymphocytic leukemia C91.10 A ctive 03436283 Problem Falling R29.6 Active 540874650 Problem Pressure ulcer of other site, stage 3 L89.893 Active 325033491 Problem 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 Active 500979282 Problem Eye exam abnormal R93.8 Active 16 9468995 Problem Primary osteoarthritis of right knee M17.11 Active 304025234527490 Problem Other iron deficiency anemia D50.8 A ctive 23936417 Problem Mild cognitive impairment G31.84 Acti ve 590131303 Problem 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.4 Active 978913785 Problem Anxiety F41.9 Active 08303786 Problem Type 2 diabetes mellitus with diabetic neuropathy, uns pecified E11.40 Active 55669842 Problem Insomnia, unspecified type G47.00 Act sharon 283789472 Problem Morbid obesity E66.01 Active 37869 6002 Problem Skin cancer C44.90 Active 95842062 7 Problem Bipolar disorder F31.9 Active 137 66908 Problem Chronic diastolic (congestive) heart failure I50.3 2 Active 750338774 Problem Psychophysiological insomnia F51.04 A ctive [id number] ALLERGIES No Information ENCOUNTERS Encounter Location Date Diagnosis [facility] [address] [facility] [id number] [address] [place] [address] Sep, [facility] [address] [facility] [id number] [address] [place] [address] Jul, [facility] [address] [place] [id number] [address] [place] [address] Jun, [facility] [address] [place] [id number] [address] [place] [address] Jun, [facility] [address] [facility] [id number] [address] [place] [address] Jun, [facility] [address] [facility] [id number] [address] [place] [address] Jun, Psychophysiological insomnia F51.04 ; Chronic pain G89.29 ; Bipolar I disorder, most recent episode (or current) mixed, moderate F31.62 ; 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 ; Polyneuropathy associated with underlying disease G63 ; Type 2 diabetes mellitus with diabetic neuropathy, unspecified E11.40 ; nursing home (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 Z79.4 and Hyperglycemia R73.9 [facility] [address] [facility] [id number] [address] [place] [address] Jun, Bipolar disorder, in partial remission, most recent episode depressed F31.75 and Mild cognitive impairment G31.84 [facility] [address] [id number] [address] [place] [address] Jun, [facility] [address] [id number] [address] [place] [address] Jun, Bipolar disorder F31.9 [facility] [address] [id number] [address] [place] [address] May, Bipolar disorder, in partial remission, most recent episode depressed F31.75 and Mild cognitive impairment G31.84 [facility] [address] [id number] [address] [place] [address] May, [facility] [address] [id number] [address] [place] [address] Apr, Chronic pain G89.29 and Bipo lar disorder F31.9 [facility] [address] [id number] [address] [place] [address] Mar, Bipolar disorder F31.9 and C hronic pain G89.29 [facility] [address] [id number] [address] [place] [address] Feb, Bipolar disorder F31.9 [facility] [address] [id number] [address] [place] [address] Feb, Cellulitis of right upper ex tremity L03.113 and Skin abrasion T14.8XXA [facility] [address] [id number] [address] [place] [address] Feb, Bipolar disorder, in partial remission, most recent episode depressed F31.75 and Mild cognitive impairment G31.84 [facility] [address] [id number] [address] [place] [address] Feb, Chronic pain G89.29 [facility] [address] [id number] [address] [place] [address] Feb, Bipolar disorder, in partial remission, most recent episode depressed F31.75 and Mild cognitive impairment G31.84 [facility] [address] [id number] [address] [place] [address] January, Bipolar disorder, in partial remission, most recent episode depressed F31.75 and Mild cognitive impairment G31.84 [facility] [address] [id number] [address] [place] [address] January, Chronic pain G89.29 and Bipo lar disorder F31.9 [facility] [address] [id number] [address] [place] [address] January, Bipolar disorder, in partial remission, most recent episode depressed F31.75 and Mild cognitive impairment G31.84 [facility] [address] [id number] [address] [place] [address] Dec, [facility] [address] [id number] [address] [place] [address] Dec, Chronic pain G89.29 and Bipo lar disorder F31.9 [facility] [address] [id number] [address] [place] [address] Dec, Edema of both lower extremit ies R60.0 [facility] [address] [id number] [address] [place] [address] Dec, Bipolar disorder F31.9 [facility] [address] [id number] [address] [place] [address] Dec, Bipolar disorder, in partial remission, most recent episode depressed F31.75 and Mild cognitive impairment G31.84 [facility] [address] [id number] [address] [place] [address] Nov, [facility] [address] [id number] [address] [place] [address] Nov, Chronic pain G89.29 [facility] [address] [id number] [address] [place] [address] Nov, Bipolar disorder, in partial remission, most recent episode depressed F31.75 and Mild cognitive impairment G31.84 [place] [address] [place] [id number] [address] [place] [address] Nov, Bipolar disorder F31.9 [place] [address] [place] [id number] [address] [place] [address] 04 Nov, 2018 Encounter for Medicare jordan[place] l wellness exam Z00.00 ; Polyneuropathy associated [...] morphology N40.1 and Essential hypertension I10 [id number] [place] [address] Oct, Chronic pain G89.29 [place] [address] [place] [id number] [address] [place] [address] 18 Oct, 2018 Diabetes E11.9 [place] [address] [place] [id number] [address] [place] [address] 11 Oct, 2018 Bipolar I disorder, most rec ent episode (or current) mixed, moderate F31.62 and Mild cognitive impairment G31.84 [place] [address] [place] [id number] [address] [place] [address] 06 Oct, 2018 Bipolar I disorder, most rec ent episode (or current) mixed, moderate F31.62 and Mild cognitive impairment G31.84 [place] [address] [place] [id number] [address] [place] [address] Sep, Bipolar I disorder, most rec ent episode (or current) mixed, moderate F31.62 and Mild cognitive impairment G31.84 [place] [address] [place] [id number] [address] [place] [address] Sep, [place] [id number] [address] [place] [address] Sep, Diabetes E11.9 ; Hypoxia R09 .02 ; Hyperglycemia R73.9 ; Therapeutic drug monitoring Z51.81 ; BMI 50.0-59.9, adult Z68.43 and Skin cancer C44.90 [facility] [address] [facility] [id number] [address] [place] [address] Sep, Chronic pain G89.29 [facility] [address] [facility] [id number] [address] [place] [address] Sep, Bipolar I disorder, most rec ent episode (or current) mixed, moderate F31.62 [place] [address] [place] [id number] [address] [place] [address] Sep, [facility] [address] [facility] [id number] [address] [place] [address] Sep, [facility] [address] [place] [id number] [address] [place] [address] Aug, Chronic pain G89.29 [facility] [address] [facility] [id number] [address] [place] [address] Aug, Bipolar I disorder, most rec ent episode (or current) mixed, moderate F31.62 [place] [address] [place] [id number] [address] [place] [address] Aug, Bipolar I disorder, most rec ent episode (or current) mixed, moderate F31.62 and Mild cognitive impairment G31.84 [facility] [address] [facility] [id number] [address] [place] [address] Jul, [facility] [address] [facility] [id number] [address] [place] [address] Jul, Chronic pain G89.29 [facility] [address] [facility] [id number] [address] [place] [address] Jul, Bipolar I disorder, most rec ent episode (or current) mixed, moderate F31.62 and Mild cognitive impairment G31.84 [facility] [address] [facility] [id number] [address] [place] [address] Jul, Bipolar I disorder, most rec ent episode (or current) mixed, moderate F31.62 and MCI (mild cognitive impairment) G31.84 [facility] [address] [facility] [id number] [address] [place] [address] Jul, [facility] [address] [facility] [id number] [address] [place] [address] Jul, [facility] [address] [place] [id number] [address] [place] [address] Jul, Bipolar I disorder, most rec ent episode (or current) mixed, moderate F31.62 [place] [address] [place] [id number] [address] [place] [address] Jul, Chronic pain G89.29 [place] [address] [place] [id number] [address] [place] [address] Jun, Bipolar I disorder, most rec ent episode (or current) mixed, moderate F31.62 [place] [address] [place] [id number] [address] [place] [address] Jun, Pre-procedure lab exam Z01.8 12 [place] [address] [place] [id number] [address] [place] [address] Jun, [facility] [address] [place] [id number] [place] [id number] Jun, [facility] [address] [place] [id number] [address] [place] [address] Jun, [place] [address] [place] [id number] [place] [address] Jun, Forgetfulness R68.89 ; Pre-s yncope R55 ; Localized edema R60.0 ; Other iron deficiency anemia D50.8 and BMI 50.0-59.9, adult Z68.43 [place] [address] [place] [id number] [address] [place] [address] Jun, Chronic pain G89.29 [facility] [address] [facility] [id number] [address] [place] [address] Jun, Chronic pain G89.29 [facility] [address] [facility] [id number] [address] [place] [address] Jun, Bipolar I disorder, most rec ent episode (or current) mixed, moderate F31.62 [place] [address] [place] [id number] [address] [place] [address] May, Chronic pain G89.29 [facility] [address] [facility] [id number] [address] [place] [address] Apr, [place] [address] [place] [id number] [address] [place] [address] Apr, Chronic pain G89.29 [place] [address] [place] [id number] [address] [place] [address] Apr, Primary osteoarthritis of ri ght knee M17.11 [facility] [address] [place] [id number] [address] [place] [address] Mar, [place] [address] [place] [id number] [place] [address] Mar, BMI 50.0-59.9, adult Z68.43 and Bipolar disorder, in partial remission, most recent episode depressed F31.75 [place] [address] [place] [id number] [address] [place] [address] Mar, Diabetes E11.9 ; Pure hyperc holesterolemia E78.00 ; Essential hypertension I10 ; Nausea with vomiting, unspecified R11.2 and Headache, unspecified headache type R51 [place] [address] [place] [id number] [address] [place] [address] Mar, Bipolar I disorder, most rec ent episode (or current) mixed, moderate F31.62 [place] [address] [place] [id number] [address] [place] [address] Mar, Bipolar I disorder, most rec ent episode (or current) mixed, moderate F31.62 [facility] [address] [id number] [address] [place] [address] Mar, Chronic pain G89.29 [facility] [address] [facility] [id number] [address] [place] [address] Mar, Bipolar I disorder, most rec ent episode (or current) mixed, moderate F31.62 [facility] [address] [facility] [id number] [address] [place] [address] Feb, Bipolar I disorder, most rec ent episode (or current) mixed, moderate F31.62 [facility] [address] [facility] [id number] [address] [place] [address] Feb, Chronic pain G89.29 [facility] [address] [facility] [id number] [address] [place] [address] Feb, Decubitus ulcer of right josselin t, stage 3 L89.893 and BMI 50.0-59.9, adult Z68.43 [facility] [address] [facility] [id number] [address] [place] [address] Feb, Bipolar I disorder, most rec ent episode (or current) mixed, moderate F31.62 [facility] [address] [facility] [id number] [address] [place] [address] Feb, [facility] [address] [facility] [id number] [address] [place] [address] January, [facility] [address] [facility] [id number] [address] [place] [address] January, Chronic pain G89.29 [facility] [address] [facility] [id number] [address] [place] [address] January, Bipolar I disorder, most rec ent episode (or current) mixed, moderate F31.62 [facility] [address] [facility] [id number] [address] [place] [address] January, Bipolar I disorder, most rec ent episode (or current) mixed, moderate F31.62 [facility] [address] [facility] [id number] [address] [place] [address] Dec, Bipolar I disorder, most rec ent episode (or current) mixed, moderate F31.62 and BMI 50.0-59.9, adult Z68.43 [place] [address] [facility] [id number] [address] [place] [address] Dec, Bipolar I disorder, most rec ent episode (or current) mixed, moderate F31.62 [place] [address] [facility] [id number] [address] [place] [address] Dec, Chronic pain G89.29 [place] [address] [place] [id number] [address] [place] [address] Dec, DM neuro manif type II E11.4 9 ; Right flank pain R10.9 ; nursing home 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 Z79.891 ; Encounter for medication monitoring Z51.81 and BMI 50.0-59.9, adult Z68.43 [place] [address] [facility] [id number] [address] [place] [address] Dec, Bipolar I disorder, most rec ent episode (or current) mixed, moderate F31.62 [place] [address] [place] [id number] [address] [place] [address] Nov, Bipolar I disorder, most rec ent episode (or current) mixed, moderate F31.62 [place] [address] [facility] [id number] [address] [place] [address] Nov, Chronic pain G89.29 [place] [address] [facility] [id number] [address] [place] [address] Nov, Bipolar I disorder, most rec ent episode (or current) mixed, moderate F31.62 [place] [address] [facility] [id number] [address] [place] [address] Nov, Hypokalemia E87.6 [place] [address] [address] Nov, Bipolar I disorder, most rec ent episode (or current) mixed, moderate F31.62 [place] [address] [address] Oct, Chronic pain G89.29 [place] [address] [address] Oct, BMI 50.0-59.9, adult Z68.43 and Bipolar I disorder, most recent episode (or current) mixed, moderate F31.62 [place] [address] [address] Oct, Bipolar I disorder, most rec ent episode (or current) mixed, moderate F31.62 [place] [address] [address] Oct, [place] [address] [address] Oct, Hypokalemia E87.6 [place] [address] [address] Oct, DM neuro manif type II E11.4 9 [place] [address] [address] Oct, Bipolar I disorder, most rec ent episode (or current) mixed, moderate F31.62 [place] [address] [address] Oct, Bipolar I disorder, most rec ent episode (or current) mixed, moderate F31.62 [place] [address] [address] 14 Oct, 2017 Hyperkalemia E87.5 ; Falling R29.6 ; BMI 50.0-59.9, adult Z68.43 and Acute left ankle pain M25.572 [place] [address] [address] 08 Oct, 2017 DM neuro manif type II E11.[address] [address] Oct, [place] [address] [address] Sep, Chronic pain G89.29 [place] [address] [address] Sep, [place] [address] [address] Sep, Bilateral primary osteoarthr itis of knee M17.[address] [address] Sep, Generalized edema R60.[address] [address] 16 Sep, 2017 Bipolar I disorder, most rec ent episode (or current) mixed, moderate F31.[address] [address] Sep, Hypoxia R09.02 ; Other hyper volemia E87.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 ; Anemia of chronic illness D63.8 and BMI 50.0- 59.9, adult Z68.[address] [address] Sep, [address] [address] Sep, Bipolar I disorder, most rec ent episode (or current) mixed, moderate F31.[address] [address] Aug, Chronic pain G89.29 [place] [address] [place] [id number] [address] [place] [address] Aug, Generalized edema R60.1 [facility] [address] [place] [id number] [address] [place] [address] Aug, [facility] [address] [place] [id number] [address] [place] [address] Aug, [facility] [address] [place] [id number] [place] [address] Aug, Bipolar I disorder, most rec ent episode (or current) mixed, moderate F31.62 [place] [address] [place] [id number] [place] [address] Aug, Bipolar I disorder, most rec ent episode (or current) mixed, moderate F31.62 [place] [address] [address] Aug, Chronic pain G89.29 [facility] [address] [place] [id number] [place] [address] Jul, Bipolar I disorder, most rec ent episode (or current) mixed, moderate F31.62 [place] [address] [address] Jul, Bipolar I disorder, most rec ent episode (or current) mixed, moderate F31.62 and BMI 60.0-69.9, adult Z68.44 [place] [address] [place] [id number] [address] [place] [address] Jul, Bipolar I disorder, most rec ent episode (or current) mixed, moderate F31.62 [place] [address] [place] [id number] [address] [place] [address] Jul, Chronic pain G89.29 [facility] [address] [place] [id number] [address] [place] [address] Jul, Bipolar I disorder, most rec ent episode (or current) mixed, moderate F31.62 [place] [address] [facility] [id number] [address] [place] [address] 18 Jun, 2017 Polyneuropathy associated wi th underlying disease G63 and Diabetes E11.9 [facility] [address] [facility] [id number] [address] [place] [address] 16 Jun, 2017 Bipolar I disorder, most rec ent episode (or current) mixed, moderate F31.62 [place] [address] [place] [id number] [address] [place] [address] 09 Jun, 2017 Chronic pain G89.29 [place] [address] [place] [id number] [address] [place] [address] May, Bipolar I disorder, most rec ent episode (or current) mixed, moderate F31.62 [place] [address] [place] [id number] [address] [place] [address] 21 May, 2017 Bipolar I disorder, most rec ent episode (or current) mixed, moderate F31.62 [place] [address] [place] [id number] [address] [place] [id number] May, Diabetic polyneuropathy asso ciated with type 2 diabetes mellitus E11.42 [place] [address] [address] [place] [id number] [address] [place] [id number] 18 May, 2017 Bipolar I disorder, most rec ent episode (or current) mixed, moderate F31.62 [place] [address] [address] [place] [id number] [address] [place] [phone] May, Bipolar I disorder, most rec ent episode (or current) mixed, moderate F31.62 [place] [address] [address] [facility] [id number] [address] [place] [phone] May, Chronic pain G89.29 [facility] [address] [facility] [id number] [address] [place] [phone] Apr, Bipolar I disorder, most rec ent episode (or current) mixed, moderate F31.62 [place] [address] [address] [place] [id number] [address] [place] [phone] Apr, [facility] [address] [id number] [address] [place] [id number] Apr, Chronic pain G89.29 and DM n euro manif type II E11.49 [facility] [address] [id number] [address] [place] [phone] Apr, [facility] [address] [id number] [address] [place] [phone] Apr, Bipolar I disorder, most rec ent episode (or current) mixed, moderate F31.62 [facility] [address] [id number] [address] [place] [address] Apr, Chronic pain G89.29 [facility] [address] [facility] [id number] [address] [place] [address] Apr, Iliotibial band syndrome, le ft M76.32 [facility] [address] [id number] [address] [place] [phone] Apr, Bipolar I disorder, most rec ent episode (or current) mixed, moderate F31.62 [facility] [address] [id number] [address] [place] [address] Mar, Bipolar I disorder, most rec ent episode (or current) mixed, moderate F31.62 [facility] [address] [facility] [id number] [address] [place] [address] Mar, Bipolar I disorder, most rec ent episode (or current) mixed, moderate F31.62 [facility] [address] [id number] [address] [place] [id number] Mar, [facility] [address] [id number] [address] [place] [address] Mar, Bipolar I disorder, most rec ent episode (or current) mixed, moderate F31.62 [facility] [address] [facility] [id number] [address] [place] [id number] Mar, Chronic pain G89.29 [facility] [address] [facility] [id number] [address] [place] [address] Mar, Bipolar I disorder, most rec ent episode (or current) mixed, moderate F31.62 [facility] [address] [facility] [id number] [address] [place] [address] Mar, Bipolar I disorder, most rec ent episode (or current) mixed, moderate F31.62 [facility] [address] [facility] [id number] [address] [place] [address] Mar, Acute pain of left knee M25. 562 ; Left hip pain M25.552 ; Generalized edema R60.1 and Tongue swelling R22.0 [facility] [address] [facility] [id number] [address] [place] [address] Mar, [facility] [address] [facility] [id number] [address] [place] [address] Feb, Chronic pain G89.29 [facility] [address] [facility] [id number] [address] [place] [address] Feb, Diabetes E11.9 [facility] [address] [id number] [address] [place] [address] January, Chronic pain G89.29 [facility] [address] [facility] [id number] [address] [place] [address] January, [facility] [address] [facility] [id number] [address] [place] [address] January, Bipolar I disorder, most rec ent episode (or current) mixed, moderate F31.62 [facility] [address] [id number] [address] [place] [id number] Dec, Bipolar I disorder, most rec ent episode (or current) mixed, moderate F31.62 [facility] [address] [facility] [id number] [address] [place] [address] Dec, Chronic pain G89.29 [facility] [address] [facility] [id number] [address] [place] [address] Dec, Bipolar I disorder, most rec ent episode (or current) mixed, moderate F31.62 [facility] [address] [facility] [id number] [address] [place] [address] Dec, Diabetes E11.9 ; Essential h ypertension I10 ; Chronic pain G89.29 and Morbid obesity E66.01 [facility] [address] [facility] [id number] [address] [place] [address] Dec, [facility] [address] [facility] [id number] [address] [place] [address] Dec, Bipolar I disorder, most rec ent episode (or current) mixed, moderate F31.62 [facility] [address] [facility] [id number] [address] [place] [id number] Dec, Bipolar I disorder, most rec ent episode (or current) mixed, moderate F31.62 [facility] [address] [place] [id number] [address] [place] [address] Nov, Chronic pain G89.29 [facility] [address] [facility] [id number] [address] [place] [address] Nov, Bipolar I disorder, most rec ent episode (or current) mixed, moderate F31.62 [facility] [address] [facility] [id number] [address] [place] [id number] Nov, [facility] [address] [facility] [id number] [address] [place] [address] Nov, Bipolar I disorder, most rec ent episode (or current) mixed, moderate F31.62 [facility] [address] [facility] [id number] [address] [place] [phone] Nov, Bipolar I disorder, most rec ent episode (or current) mixed, moderate F31.62 [facility] [address] [facility] [id number] [address] [place] [address] Nov, [facility] [address] [facility] [id number] [address] [place] [id number] Nov, [facility] [address] [facility] [id number] [address] [place] [id number] Nov, [facility] [address] [facility] [id number] [address] [place] [id number] Oct, Chronic pain G89.29 [facility] [address] [facility] [id number] [address] [place] [address] Oct, Bipolar I disorder, most rec ent episode (or current) mixed, moderate F31.62 [facility] [address] [facility] [id number] [address] [place] [id number] Oct, [facility] [address] [facility] [id number] [address] [place] [address] Oct, Chronic pain G89.29 ; Diabet es E11.9 ; Anxiety F41.9 and 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 [facility] [address] [facility] [id number] [address] [place] [address] Oct, [facility] [address] [facility] [id number] [address] [place] [address] Oct, Diabetes E11.9 [facility] [address] [facility] [id number] [address] [place] [id number] Oct, Bipolar I disorder, most rec ent episode (or current) mixed, moderate F31.62 [facility] [address] [facility] [id number] [address] [place] [address] Sep, Chronic pain G89.29 [facility] [address] [facility] [id number] [address] [place] [address] Sep, Chronic pain G89.29 [facility] [address] [facility] [id number] [address] [place] [address] Aug, Chronic pain G89.29 [facility] [address] [facility] [id number] [address] [place] [address] Jul, [facility] [address] [facility] [id number] [address] [place] [address] Jul, Diabetes E11.9 [place] [address] [facility] [id number] [address] [place] [address] Jul, Chronic pain G89.29 [place] [address] [facility] [id number] [address] [place] [id number] Jul, Bipolar I disorder, most rec ent episode (or current) mixed, moderate F31.62 [place] [address] [facility] [id number] [address] [place] [address] Jun, Bipolar I disorder, most rec ent episode (or current) mixed, moderate F31.62 [place] [address] [place] [id number] [address] [place] [address] Jun, [place] [address] [place] [id number] [address] [place] [address] Jun, Bipolar I disorder, most rec ent episode (or current) mixed, moderate F31.62 [place] [address] [place] [id number] [address] [place] [address] May, Insomnia, unspecified type G 47.00 [place] [address] [facility] [id number] [address] [place] [address] May, Bipolar I disorder, most rec ent episode (or current) mixed, moderate F31.62 [place] [address] [place] [id number] [address] [place] [address] 14 May, 2016 [place] [address] [facility] [id number] [address] [place] [id number] 08 May, 2016 Bipolar I disorder, most rec ent episode (or current) mixed, moderate F31.62 [place] [address] [facility] [id number] [address] [place] [id number] 06 May, 2016 Diabetes E11.9 and Essential hypertension I10 [place] [address] [facility] [id number] [address] [place] [address] Apr, Chronic pain G89.29 [facility] [address] [facility] [id number] [address] [place] [address] Apr, Bipolar I disorder, most rec ent episode (or current) mixed, moderate F31.62 [facility] [address] [facility] [id number] [address] [place] [address] Apr, [place] [address] [facility] [id number] [address] [place] [address] Apr, [place] [address] [facility] [id number] [address] [place] [address] Mar, Chronic pain G89.29 ; Headac he, unspecified headache type R51 ; Neuropathy G62.9 ; Pain of right hip joint M25.551 and Essential hypertension I10 [place] [address] [facility] [id number] [address] [place] [address] Mar, Chronic pain G89.29 [place] [address] [facility] [id number] [address] [place] [address] Mar, Bipolar I disorder, most rec ent episode (or current) mixed, moderate F31.62 [place] [address] [facility] [id number] [address] [place] [phone] Feb, Bipolar I disorder, most rec ent episode (or current) mixed, moderate F31.62 and Insomnia, unspecified type G47.00 [place] [address] [facility] [id number] [address] [place] [address] Feb, Chronic pain G89.29 [place] [address] [facility] [id number] [address] [place] [address] Feb, Bipolar I disorder, most rec ent episode (or current) mixed, moderate F31.62 [place] [address] [facility] [id number] [address] [place] [phone] January, Bipolar I disorder, most rec ent episode (or current) mixed, moderate F31.62 [place] [address] [facility] [id number] [address] [place] [address] January, Chronic pain G89.29 [facility] [address] [id number] [address] [place] [address] January, Chronic pain G89.29 and Esse ntial hypertension I10 [facility] [address] [facility] [id number] [address] [place] [address] January, Bipolar I disorder, most rec ent episode (or current) mixed, moderate F31.62 [facility] [address] [facility] [id number] [address] [place] [id number] Dec, [facility] [address] [facility] [id number] [address] [place] [id number] Dec, [facility] [address] [facility] [id number] [address] [place] [address] Dec, [facility] [address] [place] [id number] [address] [place] [id number] Dec, [facility] [address] [facility] [id number] [address] [place] [address] Nov, Reactive airway disease J45. 909 [facility] [address] [facility] [id number] [address] [place] [address] Nov, [facility] [address] [facility] [id number] [address] [place] [id number] Nov, [facility] [address] [facility] [id number] [address] [place] [address] Nov, [facility] [address] [facility] [id number] [address] [place] [phone] Nov, [facility] [address] [facility] [id number] [address] [place] [address] Nov, Onychomycosis B35.1 ; Hammer toe M20.40 ; [place] or callus L84 and DM neuro manif type II E11.49 [facility] [address] [facility] [id number] [address] [place] [address] Nov, Chronic pain G89.29 ; Leukoc ytosis D72.829 and Diabetes E11.9 [place] [address] [address] Nov, [facility] [address] [address] Oct, Bronchitis J40 [place] [address] [address] Oct, [facility] [address] [address] Oct, [place] [address] [address] Oct, Mastoiditis, unspecified lat erality H70.90 and Type 2 diabetes mellitus with complication E11.8 [place] [address] [address] Sep, [place] [address] [address] Sep, Dysuria R30.0 ; Cough R05 ; Benign prostatic hyperplasia with lower urinary tract symptoms, unspecified morphology N40.1 ; Hypokalemia E87.6 and Eustachian tube dysfunction, unspecified laterality H69.80 [place] [address] [address] Sep, Moderate mixed bipolar I dis order F31.62 [place] [address] [address] Sep, Hypokalemia E87.6 [place] [address] [id number] Sep, [place] [address] [id number] Sep, Upper respiratory tract infe ction, unspecified type J06.9 [place] [address] [id number] [address] [place] [id number] Aug, [facility] [address] [id number] [address] [place] [address] Aug, Dysuria R30.0 [facility] [address] [id number] [address] [place] [id number] Aug, [facility] [address] [id number] [address] [place] [address] Jul, [facility] [address] [id number] [address] [place] [id number] Jul, [facility] [address] [id number] [address] [place] [address] Jul, [facility] [address] [id number] [address] [place] [phone] Jul, [facility] [address] [id number] [address] [place] [id number] Jun, [facility] [address] [id number] [address] [place] [address] Jun, [facility] [address] [id number] [address] [place] [phone] Jun, [facility] [address] [id number] [address] [place] [address] May, [facility] [address] [id number] [address] [place] [address] May, Bipolar I disorder, most rec ent episode (or current) mixed, moderate 296.62 [facility] [address] [id number] [address] [place] [id number] 16 May, 2015 [facility] [address] [id number] [address] [place] [address] May, Bipolar I disorder, most rec ent episode (or current) mixed, moderate 296.62 and Major depressive disorder, recurrent episode, severe, specified as with psychotic behavior 296.34 [facility] [address] [facility] [id number] [address] [place] [address] May, Bipolar I disorder, most rec ent episode (or current) mixed, moderate 296.62 [facility] [address] [facility] [id number] [address] [place] [address] May, [facility] [address] [place] [id number] [address] [place] [id number] Apr, [facility] [address] [facility] [id number] [address] [place] [address] Apr, [facility] [address] [place] [id number] [address] [place] [address] Apr, Unspecified disorder of kidn ey and ureter 593.9 and Diabetes mellitus type 2, uncontrolled 250.02 [facility] [address] [place] [id number] [address] [place] [address] Apr, [facility] [address] [place] [id number] [address] [place] [id number] Apr, [facility] [address] [place] [id number] [address] [place] [id number] Apr, [facility] [address] [place] [id number] [address] [place] [address] Apr, [facility] [address] [facility] [id number] [address] [place] [address] Apr, Diabetes mellitus type II, u ncontrolled 250.02 [facility] [address] [facility] [id number] [address] [place] [address] Apr, [facility] [address] [place] [id number] [address] [place] [id number] Mar, [facility] [address] [facility] [id number] [address] [place] [address] Mar, [facility] [address] [place] [id number] [address] [place] [address] Mar, [facility] [address] [place] [id number] [address] [place] [address] Mar, Major depressive disorder, r ecurrent episode, severe, specified as with psychotic behavior 296.34 and Bipolar I disorder, most recent episode (or current) mixed, moderate 296.62 [facility] [id number] [place] [address] Mar, Diabetes 250.00 ; Anuria 788 .5 ; Nausea and vomiting 787.01 and Diarrhea 787.91 [facility] [id number] [place] [address] Mar, Diabetes 250.00 [facility] [address] [place] [id number] [address] [place] [address] Mar, [facility] [address] [place] [id number] [address] [place] [address] Mar, Diabetes 250.00 [facility] [address] [place] [id number] [address] [place] [address] Mar, [facility] [address] [place] [id number] [address] [place] [address] Mar, [facility] [address] [place] [id number] [address] [place] [id number] Mar, [facility] [address] [place] [id number] [address] [place] [address] Mar, [facility] [address] [place] [id number] [address] [place] [address] Mar, Bipolar I disorder, most rec ent episode (or current) mixed, moderate 296.62 and Major depressive disorder, recurrent episode, severe, specified as with psychotic behavior 296.34 [facility] [address] [place] [id number] [address] [place] [address] Mar, Magnesium deficiency 275.2 ; Hypokalemia 276.8 ; Nausea & vomiting 787.01 and Diabetes mellitus type 2, uncontrolled 250.02 [facility] [address] [place] [id number] [address] [place] [address] Feb, [facility] [address] [address] Feb, Bipolar I disorder, most rec ent episode (or current) mixed, moderate 296.62 [facility] [address] [place] [id number] [place] [address] Feb, Nausea and vomiting 787.01 ; Left elbow pain 719.42 ; Anuria 788.5 and Diabetes 250.00 [facility] [address] [place] [id number] [place] [address] Feb, [facility] [address] [address] Feb, Hypopotassemia 276.8 and Hyp okalemia 276.8 [place] [address] [address] Feb, Hypopotassemia 276.8 and Hyp okalemia 276.8 [facility] [address] [place] [id number] [address] [place] [address] Feb, Seborrheic keratoses 702.19 [facility] [address] [place] [id number] [address] [place] [address] Feb, Hypopotassemia 276.8 and Low magnesium levels 275.2 [facility] [address] [place] [id number] [address] [place] [address] January, [facility] [address] [place] [id number] [address] [place] [address] January, [facility] [address] [address] January, [facility] [address] [place] [id number] [address] [place] [address] January, Scalp lesion 709.9 [facility] [address] [id number] January, [facility] [address] [id number] [address] [place] [id number] 30 Dec, 2014 Tear of medial cartilage or meniscus of knee, current 836.0 and 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 [facility] [address] [id number] [address] [place] [id number] Dec, [facility] [address] [id number] [address] [place] [id number] Dec, [facility] [address] [id number] [address] [place] [id number] Dec, Squamous cell carcinoma, 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 [facility] [address] [id number] [address] [place] [id number] 14 Dec, 2014 [facility] [address] [id number] [address] [place] [id number] Dec, [facility] [address] [id number] [address] [place] [id number] Nov, [facility] [address] [id number] [address] [place] [id number] Nov, [facility] [address] [id number] [address] [place] [id number] Nov, [facility] [address] [id number] [address] [place] [id number] Nov, [facility] [address] [id number] [address] [place] [id number] Nov, [facility] [address] [id number] [address] [place] [id number] Nov, [facility] [address] [id number] [address] [place] [id number] Nov, [facility] [address] [id number] [address] [place] [id number] Nov, [facility] [address] [id number] [address] [place] [address], [place] [address] Nov, 2014 [facility] [address] [id number] [address] [place] [address], [place] [address] Nov, 2014 [facility] [address] [id number] [address] [place] [address], [place] [address] Nov, 2014 [facility] [address] [id number] [address] [place] [address], [place] [address] Nov, 2014 [facility] [address] [id number] [address] [place] [address], [place] [address] Oct, 2014 [facility] [address] [id number] [address] [place] [address], [place] [address] Oct, 2014 [facility] [address] [id number] [address] [place] [address], [place] [address] Oct, 2014 [facility] [address] [id number] [address] [place] [address], [place] [address] Oct, 2014 [facility] [address] [id number] [address] [place] [address], [place] [address] Oct, 2014 [facility] [address] [id number] [address] [place] [address], [place] [address] Oct, 2014 [facility] [address] [id number] [address] [place] [address], [place] [address] Oct, 2014 [facility] [address] [id number] [address] [place] [address], [place] [address] Oct, 2014 [facility] [address] [id number] [address] [place] [address], [place] [address] Oct, 2014 [facility] [address] [id number] [address] [place] [address], [place] [address] Sep, [facility] [address] [id number] [address] [place] [address], [place] [address] Sep, [facility] [address] [id number] [address] [place] [address] [place] [address] Sep, [facility] [address] [id number] [address] [place] [address], [place] [address] Sep, [facility] [address] [id number] [address] [place] [address], [place] [address] Sep, [facility] [address] [id number] [address] [place] [address], [place] [address] Sep, [facility] [address] [id number] [address] [place] [address], [place] [address] Sep, [facility] [address] [id number] [address] [place] [address], [place] [address] Sep, [facility] [address] [id number] [address] [place] [address], [place] [address] Sep, [facility] [address] [id number] [address] [place] [address], [place] [address] Sep, [facility] [address] [id number] [address] [place] [address], [place] [address] Sep, [facility] [address] [id number] [address] [place] [address], [place] [address] Sep, [facility] [address] [id number] [address] [place] [address], [place] [address] Sep, [facility] [address] [id number] [address] [place] [address], [place] [address] Sep, [facility] [address] [id number] [address] [place] [address], [place] [address] Sep, [facility] [address] [id number] [address] [place] [address], [place] [address] Sep, [facility] [address] [id number] [address] [place] [address], [place] [address] Aug, [facility] [address] [id number] [address] [place] [address], [place] [address] Aug, [facility] [address] [id number] [facility] [place] [address] Aug, [facility] [address] [id number] [facility] [place] [address] Aug, [facility] [address] [id number] [facility] [place] [address] Aug, [facility] [address] [id number] [facility] [place] [address] Aug, [facility] [address] [id number] [facility] [place] [address] Aug, [facility] [address] [id number] [facility] [place] [address] Aug, [facility] [address] [id number] [facility] [place] [address] Aug, [facility] [address] [id number] [address] [place] [address], [place] [address] Aug, [facility] [address] [id number] [address] [place] [address], [place] [address] Aug, [facility] [address] [place] [id number] Aug, [facility] [address] [id number] [address] [place] [address], [place] [address] Aug, [facility] [address] [id number] [address] [place] [address], [place] [address] Aug, [facility] [address] [id number] [address] [place] [address], [place] [address] Aug, [facility] [address] [id number] [address] [place] [address], [place] [address] Aug, [facility] [address] [id number] [facility] [place] [address] Aug, [facility] [address] [id number] [address] [place] [address], [place] [address] Aug, [facility] [address] [id number] [address] [place] [address], [place] [address] Aug, [facility] [address] [id number] [address] [place] [address], [place] [address] Aug, [facility] [address] [id number] [address] [place] [address], [place] [address] Aug, [facility] [address] [id number] [address] [place] [address], [place] [address] Aug, [facility] [address] [id number] [address] [place] [address], [place] [address] Aug, [facility] [address] [id number] [address] [place] [address], [place] [address] Aug, [facility] [address] [id number] [address] [place] [address], [place] [address] Aug, [facility] [address] [id number] [address] [place] [address], [place] [address] Aug, [facility] [address] [id number] [address] [place] [address], [place] [address] Aug, [facility] [address] [id number] [address] [place] [address], [place] [address] Aug, [facility] [address] [id number] [address] [place] [address], [place] [address] Aug, [facility] [address] [id number] [address] [place] [address], [place] [address] Aug, [facility] [address] [id number] [address] [place] [address], [place] [address] Jul, [facility] [address] [id number] [address] [place] [address], [place] [address] Jul, [facility] [address] [id number] [address] [place] [address], [place] [address] Jul, [facility] [address] [id number] [address] [place] [address] Jul, [facility] [address] [id number] [address] [place] [address], [place] [address] Jul, [facility] [address] [id number] [address] [place] [address] Jul, [facility] [address] [id number] [address] [place] [address], [place] [address] Jul, [facility] [address] [id number] [address] [place] [address], [place] [address] Jul, [facility] [address] [id number] [address] [place] [address], [place] [address] Jul, [facility] [address] [id number] [address] [place] [address], [place] [address] Jul, [facility] [address] [id number] [address] [place] [address] Jun, [facility] [address] [id number] [address] [place] [address] Jun, [facility] [address] [id number] [address] [place] [address] Jun, [facility] [address] [id number] [address] [place] [address] Jun, [facility] [address] [id number] [address] [place] [address] Jun, [facility] [address] [id number] [address] [place] [address] Jun, [facility] [address] [id number] [address] [place] [address] Jun, [facility] [address] [id number] [address] [place] [address] Jun, [facility] [address] [id number] [address] [place] [address] Jun, [facility] [address] [id number] [facility] [place] [address] Jun, 2013 [facility] [address] [id number] [facility] [place] [address] 29 Sep, 2013 [facility] [address] [id number] [facility] [place] [address] 29 Sep, 2013 [facility] [address] [id number] [address] [place] [address], [place] [address] 26 Sep, 2013 [facility] [address] [id number] [address] [place] [address], [place] [address] 26 Sep, 2013 [facility] [address] [id number] [address] [place] [address], [place] [address] 17 Sep, 2013 [facility] [address] [id number] [address] [place] [address], [place] [address] 17 Sep, 2013 [facility] [address] [id number] [address] [place] [address], [place] [address] 15 May, 2013 [facility] [address] [id number] [address] [place] [address], [place] [address] 15 Sep, 2013 [facility] [address] [id number] [address] [place] [address], [place] [address] 15 Sep, 2013 [facility] [address] [id number] [address] [place] [address], [place] [address] 15 May, 2013 [facility] [address] [id number] [address] [place] [address], [place] [address] 10 Sep, 2013 [facility] [address] [id number] [address] [place] [address], [place] [address] 10 Sep, 2013 [facility] [address] [id number] [address] [place] [address], [place] [address] 09 Sep, 2013 [facility] [address] [id number] [address] [place] [address], [place] [address] 09 Sep, 2013 [facility] [address] [id number] [address] [place] [address], [place] [address] May, [facility] [address] [id number] [facility] [place] [address] May, [facility] [address] [id number] [address] [place] [address], [place] [address] Apr, [facility] [address] [id number] [address] [place] [address], [place] [address] Apr, [facility] [address] [id number] [address] [place] [address], [place] [address] Apr, [facility] [address] [id number] [address] [place] [address], [place] [address] Apr, [facility] [address] [id number] [address] [place] [address], [place] [address] Apr, [facility] [address] [id number] [address] [place] [address], [place] [address] Apr, [facility] [address] [id number] [address] [place] [address], [place] [address] Apr, [facility] [address] [id number] [address] [place] [address], [place] [address] Apr, [facility] [address] [id number] [address] [place] [address], [place] [address] Apr, [facility] [address] [id number] [address] [place] [address], [place] [address] Apr, [facility] [address] [id number] [address] [place] [address], [place] [address] Apr, [facility] [address] [id number] [address] [place] [address], [place] [address] Apr, [facility] [address] [id number] [address] [place] [address], [place] [address] Apr, [facility] [address] [id number] [address] [place] [address], [place] [address] Apr, [facility] [address] [id number] [address] [place] [address], [place] [address] Apr, [facility] [address] [id number] [address] [place] [address], [place] [address] Mar, 2013 [facility] [address] [id number] [address] [place] [address], [place] [address] Mar, [facility] [address] [id number] [address] [place] [address], [place] [address] Mar, 2013 [facility] [address] [id number] [address] [place] [address], [place] [address] Mar, [facility] [address] [id number] [address] [place] [address], [place] [address] Mar, [facility] [address] [id number] [address] [place] [address], [place] [address] Mar, [facility] [address] [id number] [address] [place] [address], [place] [address] Mar, [facility] [address] [id number] [address] [place] [address], [place] [address] Mar, [facility] [address] [id number] [address] [place] [address], [place] [address] Mar, [facility] [address] [id number] [address] [place] [address], [place] [address] Mar, [facility] [address] [id number] [address] [place] [address], [place] [address] Mar, 2013 [facility] [address] [id number] [address] [place] [address], [place] [address] Mar, 2013 [facility] [address] [id number] [address] [place] [address], [place] [address] Mar, 2013 [facility] [address] [id number] [address] [place] [address], [place] [address] Mar, 2013 [facility] [address] [id number] [address] [place] [address], [place] [address] Mar, [facility] [address] [id number] [facility] [place] [address] Mar, [facility] [address] [id number] [facility] [place] [address] Mar, [facility] [address] [id number] [facility] [place] [address] Mar, [facility] [address] [id number] [address] [place] [address], [place] [address] Feb, [facility] [address] [id number] [address] [place] [address], [place] [address] Feb, [facility] [address] [id number] [address] [place] [address], [place] [address] Feb, [facility] [address] [id number] [address] [place] [address], [place] [address] Feb, [facility] [address] [id number] [address] [place] [address], [place] [address] Feb, [facility] [address] [id number] [address] [place] [address], [place] [address] Feb, [facility] [address] [id number] [address] [place] [address], [place] [address] Feb, [facility] [address] [id number] [address] [place] [address], [place] [address] Feb, [facility] [address] [id number] [address] [place] [address], [place] [address] Feb, [facility] [address] [id number] [address] [place] [address], [place] [address] Feb, [facility] [address] [id number] [address] [place] [address], [place] [address] Feb, [facility] [address] [id number] [address] [place] [address], [place] [address] Feb, [facility] [address] [id number] [address] [place] [address], [place] [address] Feb, [facility] [address] [id number] [facility] [place] [address] Feb, [facility] [address] [id number] [address] [place] [address], [place] [address] January, [facility] [address] [id number] [address] [place] [address], [place] [address] January, [facility] [address] [id number] [address] [place] [address], [place] [address] January, [facility] [address] [id number] [address] [place] [address], [place] [address] January, [facility] [address] [id number] [address] [place] [address], [place] [address] January, [facility] [address] [id number] [address] [place] [address], [place] [address] January, [facility] [address] [id number] [address] [place] [address], [place] [address] January, [facility] [address] [id number] [address] [place] [address], [place] [address] January, [facility] [address] [id number] [address] [place] [address], [place] [address] January, [facility] [address] [id number] [address] [place] [address], [place] [address] January, [facility] [address] [id number] [address] [place] [address], [place] [address] January, [facility] [address] [id number] [address] [place] [address], [place] [address] January, [facility] [address] [id number] [address] [place] [address], [place] [address] January, [facility] [address] [id number] [address] [place] [address], [place] [address] January, [facility] [address] [id number] [facility] [place] [address] Dec, [facility] [address] [id number] [facility] [place] [address] Dec, [facility] [address] [id number] [facility] [place] [address] Dec, [facility] [address] [id number] [address] [place] [address], [place] [address] Dec, [facility] [address] [id number] [address] [place] [address], [place] [address] Dec, [facility] [address] [id number] [address] [place] [address], [place] [address] Dec, [facility] [address] [id number] [address] [place] [address], [place] [address] Dec, [facility] [address] [id number] [address] [place] [address], [place] [address] Dec, [facility] [address] [id number] [address] [place] [address], [place] [address] Dec, [facility] [address] [id number] [address] [place] [address], [place] [address] Dec, [facility] [address] [id number] [address] [place] [address], [place] [address] Nov, [facility] [address] [id number] [address] [place] [address], [place] [address] Nov, [facility] [address] [id number] [address] [place] [address], [place] [address] Nov, [facility] [address] [id number] [address] [place] [address], [place] [address] Nov, [facility] [address] [id number] [address] [place] [address], [place] [address] Nov, [facility] [address] [id number] [address] [place] [address], [place] [address] Nov, [facility] [address] [id number] [facility] [place] [address] Nov, [facility] [address] [id number] [address] [place] [address], [place] [address] Nov, [facility] [address] [id number] [facility] [place] [address] Nov, [facility] [address] [id number] [address] [place] [address], [place] [address] Nov, [facility] [address] [id number] [address] [place] [address], [place] [address] Oct, [facility] [address] [id number] [address] [place] [address], [place] [address] Oct, [facility] [address] [id number] [address] [place] [address], [place] [address] Oct, [facility] [address] [id number] [address] [place] [address], [place] [address] Oct, [facility] [address] [id number] [address] [place] [address], [place] [address] Oct, [facility] [address] [id number] [address] [place] [address], [place] [address] Oct, [facility] [address] [id number] [address] [place] [address], [place] [address] 14 Oct, 2013 [facility] [address] [id number] [address] [place] [address], [place] [address] 14 Oct, 2013 [facility] [address] [id number] [address] [place] [address], [place] [address] 05 Oct, 2013 [facility] [address] [id number] [address] [place] [address], [place] [address] 05 Oct, 2013 [facility] [address] [id number] [address] [place] [address], [place] [address] 04 Oct, 2013 [facility] [address] [id number] [address] [place] [address], [place] [address] Oct, [facility] [address] [id number] [address] [place] [address], [place] [address] Oct, [facility] [address] [id number] [address] [place] [address], [place] [address] Oct, [facility] [address] [id number] [address] [place] [address], [place] [address] Sep, [facility] [address] [id number] [address] [place] [address], [place] [address] Sep, [facility] [address] [id number] [address] [place] [address], [place] [address] Sep, [facility] [address] [id number] [address] [place] [address], [place] [address] Sep, [facility] [address] [id number] [address] [place] [address], [place] [address] Sep, [facility] [address] [id number] [address] [place] [address], [place] [address] Sep, [facility] [address] [id number] [address] [place] [address], [place] [address] Sep, [facility] [address] [id number] [address] [place] [address], [place] [address] Sep, [facility] [address] [id number] [address] [place] [address], [place] [address] Sep, [facility] [address] [id number] [address] [place] [address], [place] [address] Sep, [facility] [address] [id number] [address] [place] [address], [place] [address] Aug, [facility] [address] [id number] [address] [place] [address], [place] [address] Aug, [facility] [address] [id number] [address] [place] [address], [place] [address] Jul, [facility] [address] [id number] [address] [place] [address], [place] [address] Jul, [facility] [address] [id number] [address] [place] [address], [place] [address] Jul, [facility] [address] [id number] [address] [place] [address], [place] [address] Jul, [facility] [address] [id number] [address] [place] [address], [place] [address] Jul, [facility] [address] [id number] [address] [place] [address], [place] [address] Jul, [facility] [address] [id number] [address] [place] [address] Jul, [facility] [address] [id number] [address] [place] [address], [place] [address] Jul, [facility] [address] [id number] [address] [place] [address], [place] [address] Jul, [facility] [address] [id number] [address] [place] [address], [place] [address] Jul, [facility] [address] [id number] [address] [place] [address] Jul, [facility] [address] [id number] [address] [place] [address] Jul, [facility] [address] [id number] [address] [place] [address] Jul, [facility] [address] [id number] [address] [place] [address], [place] [address] Jul, [facility] [address] [id number] [address] [place] [address] Jul, [facility] [address] [id number] [address] [place] [address] Jul, [facility] [address] [id number] [address] [place] [address], [place] [address] 05 Jul, 2012 [facility] [address] [id number] [address] [place] [address], [place] [address] Jul, 2012 [facility] [address] [id number] [address] [place] [address], [place] [address] Jul, 2012 [facility] [address] [id number] [address] [place] [address], [place] [address] Jun, 2012 [facility] [address] [id number] [address] [place] [address], [place] [address] Jun, 2012 [facility] [address] [id number] [address] [place] [address], [place] [address] Jun, 2012 [facility] [address] [id number] [address] [place] [address], [place] [address] Jun, 2012 [facility] [address] [id number] [address] [place] [address], [place] [address] Jun, 2012 [facility] [address] [id number] [address] [place] [address] [address] Jun, [facility] [address] [id number] [address] [place] [address], [place] [address] Jun, 2012 [facility] [address] [id number] [address] [place] [address], [place] [address] Jun, [facility] [address] [id number] [address] [place] [address], [place] [address] Jun, [facility] [address] [id number] [address] [place] [address], [place] [address] Jun, [facility] [address] [id number] [address] [place] [address], [place] [address] Jun, [facility] [address] [id number] [address] [place] [address], [place] [address] May, [facility] [address] [id number] [address] [place] [address], [place] [address] 25 May, 2013 [facility] [address] [id number] [address] [place] [address], [place] [address] 19 May, 2012 [facility] [address] [id number] [address] [place] [address], [place] [address] 17 May, 2013 [facility] [address] [id number] [address] [place] [address], [place] [address] 11 May, 2012 [facility] [address] [id number] [address] [place] [address], [place] [address] 10 May, 2012 [facility] [address] [id number] [address] [place] [address], [place] [address] 09 May, 2013 [facility] [address] [id number] [address] [place] [address], [place] [address] 05 May, 2013 [facility] [address] [id number] [address] [place] [address], [place] [address] Apr, [facility] [address] [id number] [address] [place] [address], [place] [address] Apr, [facility] [address] [id number] [address] [place] [address], [place] [address] Apr, [facility] [address] [id number] [address] [place] [address], [place] [address] Apr, [facility] [address] [id number] [address] [place] [address], [place] [address] Apr, [facility] [address] [id number] [address] [place] [address], [place] [address] Mar, [facility] [address] [id number] [address] [place] [address], [place] [address] Mar, [facility] [address] [id number] [address] [place] [address], [place] [address] Mar, [facility] [address] [id number] [address] [place] [address], [place] [address] Mar, [facility] [address] [id number] [address] [place] [address], [place] [address] Mar, [facility] [address] [id number] [address] [place] [address], [place] [address] Mar, [facility] [address] [id number] [address] [place] [address], [place] [address] Mar, [facility] [address] [id number] [address] [place] [address], [place] [address] Mar, [facility] [address] [id number] [address] [place] [address], [place] [address] Feb, [facility] [address] [id number] [address] [place] [address], [place] [address] Feb, [facility] [address] [id number] [address] [place] [address], [place] [address] January, [facility] [address] [id number] [address] [place] [address], [place] [address] January, [facility] [address] [id number] [address] [place] [address], [place] [address] Dec, [facility] [address] [id number] [address] [place] [address], [place] [address] Dec, [facility] [address] [id number] [address] [place] [address], [place] [address] Nov, [facility] [address] [id number] [address] [place] [address], [place] [address] Nov, [facility] [address] [id number] [address] [place] [address], [place] [address] Nov, [facility] [address] [id number] [address] [place] [address], [place] [address] Nov, [facility] [address] [id number] [address] [place] [address], [place] [address] Oct, [facility] [address] [id number] [address] [place] [address], [place] [address] Oct, [facility] [address] [id number] [address] [place] [address], [place] [address] 26 Oct, 2012 [facility] [address] [id number] [address] [place] [address], [place] [address] 26 Oct, 2012 [facility] [address] [id number] [address] [place] [address], [place] [address] 16 Oct, 2012 [facility] [address] [id number] [address] [place] [address], [place] [address] 14 Oct, 2012 [facility] [address] [id number] [address] [place] [address], [place] [address] 08 Oct, 2012 [facility] [address] [id number] [address] [place] [address], [place] [address] 07 Oct, 2012 [facility] [address] [id number] [address] [place] [address], [place] [address] 03 Oct, 2012 [facility] [address] [id number] [address] [place] [address], [place] [address] 30 Sep, 2012 [facility] [address] [id number] [address] [place] [address], [place] [address] Sep, [facility] [address] [id number] [address] [place] [address], [place] [address] Sep, [facility] [address] [id number] [address] [place] [address], [place] [address] Sep, [facility] [address] [id number] [address] [place] [address], [place] [address] Sep, [facility] [address] [id number] [address] [place] [address], [place] [address] Sep, [facility] [address] [id number] [address] [place] [address], [place] [address] 09 Sep, 2012 [facility] [address] [id number] [address] [place] [address], [place] [address] 08 Sep, 2012 [facility] [address] [id number] [address] [place] [address], [place] [address] 31 Aug, 2012 [facility] [address] [id number] [address] [place] [address], [place] [address] Aug, [facility] [address] [id number] [address] [place] [address], [place] [address] Aug, [facility] [address] [id number] [address] [place] [address], [place] [address] Aug, [facility] [address] [id number] [address] [place] [address], [place] [address] Aug, [facility] [address] [id number] [address] [place] [address], [place] [address] Aug, [facility] [address] [id number] [address] [place] [address], [place] [address] Aug, [facility] [address] [id number] [address] [place] [address], [place] [address] Aug, [facility] [address] [id number] [address] [place] [address], [place] [address] Jul, [facility] [address] [id number] [address] [place] [address], [place] [address] Jul, [facility] [address] [id number] [address] [place] [address], [place] [address] Jul, [facility] [address] [id number] [address] [place] [address], [place] [address] Jul, [facility] [address] [id number] [address] [place] [address], [place] [address] Jul, [facility] [address] [id number] [address] [place] [address], [place] [address] Jul, [facility] [address] [id number] [address] [place] [address], [place] [address] Jun, [facility] [address] [id number] [address] [place] [address], [place] [address] Jun, [facility] [address] [id number] [address] [place] [address], [place] [address] 23 Jun, 2012 [facility] [address] [id number] [address] [place] [address], [place] [address] 23 Jun, 2012 [facility] [address] [id number] [address] [place] [address], [place] [address] Jun, [facility] [address] [id number] [address] [place] [address], [place] [address] Jun, [facility] [address] [id number] [address] [place] [address], [place] [address] 19 Jun, 2012 [facility] [address] [id number] [address] [place] [address], [place] [address] 10 Jun, 2012 [facility] [address] [id number] [address] [place] [address], [place] [address] 10 Jun, 2012 [facility] [address] [id number] [address] [place] [address], [place] [address] 26 May, 2012 [facility] [address] [id number] [address] [place] [address], [place] [address] 24 May, 2012 [facility] [address] [id number] [address] [place] [address], [place] [address] 18 May, 2012 [facility] [address] [id number] [address] [place] [address], [place] [address] 30 Apr, 2012 [facility] [address] [id number] [address] [place] [address], [place] [address] 29 Apr, 2012 [facility] [address] [id number] [address] [place] [address], [place] [address] 18 Apr, 2012 [facility] [address] [id number] [address] [place] [address], [place] [address] 14 Apr, 2012 [facility] [address] [id number] [address] [place] [address], [place] [address] Apr, [facility] [address] [id number] [address] [place] [address], [place] [address] Apr, [facility] [address] [id number] [facility] [address] Mar, [facility] [address] [id number] [address] [place] [address], [place] [address] Mar, [facility] [address] [id number] [address] [place] [address], [place] [address] Mar, [facility] [address] [id number] [address] [place] [address], [place] [address] Mar, [facility] [address] [id number] [address] [place] [address], [place] [address] Feb, [facility] [address] [id number] [address] [place] [address], [place] [address] Feb, [facility] [address] [id number] [address] [place] [address], [place] [address] Feb, [facility] [address] [id number] [address] [place] [address], [place] [address] Feb, [facility] [address] [id number] [address] [place] [address], [place] [address] Feb, [facility] [address] [id number] [address] [place] [address], [place] [address] January, [facility] [address] [id number] [address] [place] [address], [place] [address] January, [facility] [address] [id number] [address] [place] [address], [place] [address] January, [facility] [address] [id number] [address] [place] [address], [place] [address] January, [facility] [address] [id number] [address] [place] [address], [place] [address] January, [facility] [address] [id number] [address] [place] [address], [place] [address] January, [facility] [address] [id number] [address] [place] [address], [place] [address] 24 Dec, 2011 [facility] [address] [id number] [address] [place] [address], [place] [address] 24 Dec, 2011 [facility] [address] [id number] [address] [place] [address], [place] [address] 17 Dec, 2011 [facility] [address] [id number] [address] [place] [address], [place] [address] 09 Dec, 2011 [facility] [address] [id number] [address] [place] [address], [place] [address] 06 Dec, 2011 [facility] [address] [id number] [address] [place] [address], [place] [address] 27 Nov, 2011 [facility] [address] [id number] [address] [place] [address], [place] [address] 14 Nov, 2011 [facility] [address] [id number] [address] [place] [address], [place] [address] 12 Nov, 2011 [facility] [address] [id number] [address] [place] [address], [place] [address] 07 Nov, 2011 [facility] [address] [id number] [address] [place] [address], [place] [address] 29 Oct, 2011 [facility] [address] [id number] [address] [place] [address], [place] [address] 28 Oct, 2011 [facility] [address] [id number] [address] [place] [address], [place] [address] 24 Oct, 2011 [facility] [address] [id number] [address] [place] [address], [place] [address] 13 Oct, 2011 [facility] [address] [id number] [address] [place] [address], [place] [address] 08 Oct, 2011 [facility] [address] [id number] [address] [place] [address], [place] [address] 31 Sep, 2011 [facility] [address] [id number] [address] [place] [address], [place] [address] Sep, [facility] [address] [id number] [address] [place] [address], [place] [address] Sep, [facility] [address] [id number] [address] [place] [address], [place] [address] Sep, [facility] [address] [id number] [address] [place] [address], [place] [address] Sep, [facility] [address] [id number] [address] [place] [address], [place] [address] Sep, [facility] [address] [id number] [address] [place] [address], [place] [address] Aug, [facility] [address] [id number] [address] [place] [address], [place] [address] Aug, [facility] [address] [id number] [address] [place] [address], [place] [address] Aug, [facility] [address] [id number] [address] [place] [address] Jul, [facility] [address] [id number] [address] [place] [address], [place] [address] Jul, [facility] [address] [id number] [address] [place] [address] Jul, [facility] [address] [id number] [address] [place] [address] Jul, [facility] [address] [id number] [address] [place] [address] Jun, [facility] [address] [id number] [address] [place] [address], [place] [address] Jun, [facility] [address] [id number] [address] [place] [address] Jun, [facility] [address] [id number] [address] [place] [address] Jun, [facility] [address] [id number] [address] [place] [address] 10 Jun, 2011 [facility] [address] [id number] [address] [place] [address], [place] [address] 10 Jun, 2011 [facility] [address] [id number] [address] [place] [address], [place] [address] 11 Mar, 2011 [facility] [address] [id number] [address] [place] [address], [place] [address] 18 Dec, 2010 [facility] [address] [id number] [address] [place] [address], [place] [address] 11 Dec, 2010 [facility] [address] [id number] [address] [place] [address], [place] [address] 18 Nov, 2010 [facility] [address] [id number] [address] [place] [address], [place] [address] 16 Nov, 2010 [facility] [address] [id number] [address] [place] [address], [place] [address] 10 Sep, 2010 [facility] [address] [id number] [address] [place] [address], [place] [address] 31 Aug, 2010 [facility] [address] [id number] [address] [place] [address], [place] [address] 29 Aug, 2010 [facility] [address] [id number] [address] [place] [address], [place] [address] 29 Aug, 2010 [facility] [address] [id number] [address] [place] [address], [place] [address] 29 Aug, 2010 [facility] [address] [id number] [address] [place] [address], [place] [address] 27 Aug, 2010 [facility] [address] [id number] [address] [place] [address], [place] [address] 14 Aug, 2010 [facility] [address] [id number] [address] [place] [address], [place] [address] 08 Aug, 2010 [facility] [address] [id number] [address] [place] [address], [place] [address] 08 Aug, 2010 [facility] [address] [id number] [address] [place] [address], [place] [address] 07 Aug, 2010 [facility] [address] [id number] [address] [place] [address], [place] [address] Aug, [facility] [address] [id number] [address] [place] [address], [place] [address] Aug, [facility] [address] [id number] [address] [place] [address], [place] [address] Aug, [facility] [address] [id number] [address] [place] [address], [place] [address] Jul, [facility] [address] [id number] [address] [place] [address], [place] [address] Jul, [facility] [address] [id number] [address] [place] [address], [place] [address] Jul, [facility] [address] [id number] [address] [place] [address], [place] [address] Jul, [facility] [address] [id number] [address] [place] [address], [place] [address] Jul, [facility] [address] [id number] [address] [place] [address], [place] [address] Jul, [facility] [address] [id number] [address] [place] [address], [place] [address] 24 Jun, 2010 [facility] [address] [id number] [address] [place] [address], [place] [address] Jun, [facility] [address] [id number] [address] [place] [address], [place] [address] Jun, [facility] [address] [id number] [address] [place] [address], [place] [address] Jun, [facility] [address] [id number] [address] [place] [address], [place] [address] Apr, [facility] [address] [id number] [address] [place] [address] [address] Mar, [facility] [address] [id number] [address] [place] [address], [place] [address] 17 Feb, 2010 [facility] [address] [id number] [address] [place] [id number] January, [facility] [address] [id number] [address] [place] [address], [place] [address] 15 Dec, 2009 [facility] [address] [id number] [address] [place] [id number] Nov, [facility] [address] [id number] [address] [place] [address], [place] [address] 31 Aug, 2009 [facility] [address] [id number] [address] [place] [id number] Aug, [facility] [address] [id number] [address] [place] [id number] Aug, [facility] [address] [id number] [address] [place] [id number] Jul, [facility] [address] [id number] [address] [place] [id number] Jul, [facility] [address] [id number] [address] [place] [id number] Jul, [facility] [address] [id number] [address] [place] [id number] 30 Jun, 2009 [facility] [address] [id number] [address] [place] [id number] 29 Jun, 2009 [facility] [address] [id number] [address] [place] [id number] Jun, [facility] [address] [id number] [address] [place] [id number] Jun, [facility] [address] [id number] [address] [place] [id number] 12 Jun, 2009 [facility] [address] [id number] [address] [place] [id number] Jun, [facility] [address] [facility] [id number] [address] [place] [id number] Apr, [facility] [address] [facility] [id number] [address] [place] [id number] Apr, [facility] [address] [facility] [id number] [address] [place] [id number] Feb, [facility] [address] [facility] [id number] [address] [place] [id number] January, [facility] [address] [facility] [id number] [address] [place] [id number] Dec, IMMUNIZATIONS No Known Immunizations SOCIAL HISTORY Never Assessed REASON FOR VISIT PLAN OF CARE VITAL SIGNS Height 67 in 2014-04-02 Weight 334.38 lbs 2014-04-02 Temperature 97.9 degrees Fahrenheit 2014-04-02 Heart Rate 80 bpm 2014-04-02 Respiratory Rate 28 2014-04-02 Blood pressure systolic 164 mmHg 2014-04-02 Blood pressure diastolic 84 mmHg 2014-04-02 MEDICATIONS Unknown Medications RESULTS No Results PROCEDURES [...] History inability to urinate 09/16/15 Hospitalization History [facility] e[facility]ly 1999's Hospitalization History hyperkalemia 10/2017 Hospitalization History fluid in lung
--- OUTSIDE RECORDS SUMMARY | 2020-03-01 17:06 | XMS REPORT ---
Author Author Michele WASHBURN Organization [facility] Address [address] [place] [address] Care Team Providers Care Coding Compliance Auditor Name Role Phone NOEMI WASHBURN Unavailable PROBLEMS Type Condition ICD9-CM Code [id number] Code Onset Dates Condition S tatus SNOMED Code Problem Benign prostatic hyperplasia with lower urinary tract symptoms, unspecified morphology N40.1 Active 90262 6007 Problem Diabetes E11.9 Active 21344513 Problem DM neuro manif type II E11.49 Active 09481126 Problem Leukocytosis D72.829 Active 5091168 06 Problem Chronic pain G89.29 Active 6722720 1 Problem Bipolar I disorder, most recent episode (or curr ent) mixed, moderate F31.62 Active 85719175 Problem Reactive airway disease J45.909 Active 724476037558 Problem Pure hypercholesterolemia E78.00 Acti ve 639823135 Problem Dysuria R30.0 Active 35521443 Problem Bipolar disorder, in partial remission, most rec ent episode depressed F31.75 Active 78556305 Problem Hypokalemia E87.6 Active 69061918 Problem Eustachian tube dysfunction, unspecified laterality H69.80 Active 82362088 Problem Cough R05 Active 98856792 Problem Diabetic polyneuropathy associated with type 2 d iabetes mellitus E11.42 Active 81926420 Problem Essential hypertension I10 Active 55815415 Problem Bilateral primary osteoarthritis of knee M17.0 Active 798867388 Problem Polyneuropathy associated with underlying disease G63 Active 709213742 Problem Retinal edema H35.81 Active 151937 6 Problem Lymphocytosis D72.820 Active 623032 09 Problem Anemia of chronic illness D63.8 Acti ve 681669202 Problem Chronic lymphocytic leukemia C91.10 A ctive 62274790 Problem Falling R29.6 Active 606487977 Problem Pressure ulcer of other site, stage 3 L89.893 Active 038451731 Problem 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 Active 479555978 Problem Eye exam abnormal R93.8 Active 16 9819799 Problem Primary osteoarthritis of right knee M17.11 Active 903298834250458 Problem Other iron deficiency anemia D50.8 A ctive 04495070 Problem Mild cognitive impairment G31.84 Acti ve 625702422 Problem prison (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 Z79.4 Active 125290582 Problem Anxiety F41.9 Active 08122089 Problem Type 2 diabetes mellitus with diabetic neuropathy, uns pecified E11.40 Active 58787122 Problem Insomnia, unspecified type G47.00 Act sharon 513814260 Problem Morbid obesity E66.01 Active 14430 6002 Problem Skin cancer C44.90 Active 49992690 7 Problem Bipolar disorder F31.9 Active 137 40693 Problem Chronic diastolic (congestive) heart failure I50.3 2 Active 839995324 Problem Psychophysiological insomnia F51.04 A ctive [id number] ALLERGIES No Information ENCOUNTERS Encounter Location Date Diagnosis [place] [address] [facility] [id number] [address] [place] [phone] Sep, [place] [address] [facility] [id number] [address] [place] [phone] Jul, [place] [address] [facility] [id number] [address] [place] [phone] Jun, [facility] [address] [facility] [id number] [address] [place] [address] Jun, [place] [address] [facility] [id number] [address] [place] [address] Jun, [place] [address] [facility] [id number] [address] [place] [address] Jun, Psychophysiological insomnia F51.04 ; Chronic pain G89.29 ; Bipolar I disorder, most recent episode (or current) mixed, moderate F31.62 ; 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 ; Polyneuropathy associated with underlying disease G63 ; Type 2 diabetes mellitus with diabetic neuropathy, unspecified E11.40 ; 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 and Hyperglycemia R73.9 [facility] [address] [id number] [address] [place] [phone] Jun, Bipolar disorder, in partial remission, most recent episode depressed F31.75 and Mild cognitive impairment G31.84 [facility] [address] [id number] [address] [place] [phone] Jun, [facility] [address] [facility] [id number] [address] [place] [phone] Jun, Bipolar disorder F31.9 [facility] [address] [facility] [id number] [address] [place] [phone] May, Bipolar disorder, in partial remission, most recent episode depressed F31.75 and Mild cognitive impairment G31.84 [facility] [address] [facility] [id number] [address] [place] [phone] May, [facility] [address] [facility] [id number] [address] [place] [address] Apr, Chronic pain G89.29 and Bipo lar disorder F31.9 [facility] [address] [id number] [address] [place] [phone] Mar, Bipolar disorder F31.9 and C hronic pain G89.29 [facility] [address] [facility] [id number] [address] [place] [phone] Feb, Bipolar disorder F31.9 [facility] [address] [facility] [id number] [address] [place] [phone] Feb, Cellulitis of right upper ex tremity L03.113 and Skin abrasion T14.8XXA [facility] [address] [id number] [address] [place] [phone] Feb, Bipolar disorder, in partial remission, most recent episode depressed F31.75 and Mild cognitive impairment G31.84 [facility] [address] [id number] [address] [place] [address] Feb, Chronic pain G89.29 [facility] [address] [facility] [id number] [address] [place] [phone] Feb, Bipolar disorder, in partial remission, most recent episode depressed F31.75 and Mild cognitive impairment G31.84 [facility] [address] [id number] [address] [place] [address] January, Bipolar disorder, in partial remission, most recent episode depressed F31.75 and Mild cognitive impairment G31.84 [facility] [address] [id number] [address] [place] [phone] January, Chronic pain G89.29 and Bipo lar disorder F31.9 [facility] [address] [id number] [address] [place] [phone] January, Bipolar disorder, in partial remission, most recent episode depressed F31.75 and Mild cognitive impairment G31.84 [facility] [address] [id number] [address] [place] [phone] Dec, [facility] [address] [id number] [address] [place] [phone] Dec, Chronic pain G89.29 and Bipo lar disorder F31.9 [facility] [address] [id number] [address] [place] [phone] Dec, Edema of both lower extremit ies R60.0 [facility] [address] [id number] [address] [place] [address] Dec, Bipolar disorder F31.9 [facility] [address] [id number] [address] [place] [phone] Dec, Bipolar disorder, in partial remission, most recent episode depressed F31.75 and Mild cognitive impairment G31.84 [facility] [address] [id number] [address] [place] [phone] Nov, [facility] [address] [id number] [address] [place] [address] Nov, Chronic pain G89.29 [facility] [address] [id number] [address] [place] [address] Nov, Bipolar disorder, in partial remission, most recent episode depressed F31.75 and Mild cognitive impairment G31.84 [place] [address] [place] [id number] [address] [place] [address] Nov, Bipolar disorder F31.9 [place] [address] [place] [id number] [address] [place] [phone] 04 Nov, 2018 Encounter for Medicare [facility] wellness exam Z00.00 ; Polyneuropathy associated with [...] unspecified morphology N40.1 and Essential hypertension I10 [place] [address] [place] [id number] [place] [address] Oct, Chronic pain G89.29 [place] [address] [address] 18 Oct, 2018 Diabetes E11.9 [place] [address] [place] [id number] [address] [place] [address] Oct, Bipolar I disorder, most rec ent episode (or current) mixed, moderate F31.62 and Mild cognitive impairment G31.84 [place] [address] [place] [id number] [address] [place] [address] Oct, Bipolar I disorder, most rec ent episode (or current) mixed, moderate F31.62 and Mild cognitive impairment G31.84 [place] [address] [place] [id number] [address] [place] [phone] Sep, Bipolar I disorder, most rec ent episode (or current) mixed, moderate F31.62 and Mild cognitive impairment G31.84 [place] [address] [place] [id number] [address] [place] [address] Sep, [facility] [address] [facility] [id number] [address] [place] [phone] Sep, Diabetes E11.9 ; Hypoxia R09 .02 ; Hyperglycemia R73.9 ; Therapeutic drug monitoring Z51.81 ; BMI 50.0-59.9, adult Z68.43 and Skin cancer C44.90 [place] [address] [place] [id number] [address] [place] [address] Sep, Chronic pain G89.29 [place] [address] [place] [id number] [address] [place] [phone] Sep, Bipolar I disorder, most rec ent episode (or current) mixed, moderate F31.62 [place] [address] [place] [id number] [address] [place] [phone] Sep, [place] [address] [place] [id number] [address] [place] [address] Sep, [place] [address] [facility] [id number] [address] [place] [address] Aug, Chronic pain G89.29 [place] [address] [facility] [id number] [address] [place] [phone] Aug, Bipolar I disorder, most rec ent episode (or current) mixed, moderate F31.62 [place] [address] [place] [id number] [address] [place] [address] Aug, Bipolar I disorder, most rec ent episode (or current) mixed, moderate F31.62 and Mild cognitive impairment G31.84 [place] [address] [facility] [id number] [address] [place] [phone] Jul, [place] [address] [place] [id number] [address] [place] [address] Jul, Chronic pain G89.29 [place] [address] [facility] [id number] [address] [place] [phone] Jul, Bipolar I disorder, most rec ent episode (or current) mixed, moderate F31.62 and Mild cognitive impairment G31.84 [place] [address] [facility] [id number] [address] [place] [phone] Jul, Bipolar I disorder, most rec ent episode (or current) mixed, moderate F31.62 and MCI (mild cognitive impairment) G31.84 [place] [address] [facility] [id number] [address] [place] [phone] Jul, [facility] [address] [facility] [id number] [address] [place] [address] Jul, [place] [address] [facility] [id number] [address] [place] [address] Jul, Bipolar I disorder, most rec ent episode (or current) mixed, moderate F31.62 [place] [address] [facility] [id number] [address] [place] [address] Jul, Chronic pain G89.29 [place] [address] [facility] [id number] [address] [place] [address] Jun, Bipolar I disorder, most rec ent episode (or current) mixed, moderate F31.62 [place] [address] [facility] [id number] [address] [place] [phone] Jun, Pre-procedure lab exam Z01.8 12 [place] [address] [place] [id number] [address] [place] [phone] Jun, [facility] [address] [id number] [place] [id number] Jun, [place] [address] [facility] [id number] [address] [place] [address] Jun, [place] [address] [place] [id number] [address] [place] [phone] Jun, Forgetfulness R68.89 ; Pre-s yncope R55 ; Localized edema R60.0 ; Other iron deficiency anemia D50.8 and BMI 50.0-59.9, adult Z68.43 [facility] [address] [facility] [id number] [address] [place] [address] Jun, Chronic pain G89.29 [facility] [address] [facility] [id number] [address] [place] [address] Jun, Chronic pain G89.29 [facility] [address] [facility] [id number] [address] [place] [phone] Jun, Bipolar I disorder, most rec ent episode (or current) mixed, moderate F31.62 [facility] [address] [facility] [id number] [address] [place] [address] May, Chronic pain G89.29 [facility] [address] [facility] [id number] [address] [place] [phone] Apr, [facility] [address] [place] [id number] [address] [place] [address] Apr, Chronic pain G89.29 [facility] [address] [place] [id number] [address] [place] [phone] Apr, Primary osteoarthritis of ri ght knee M17.11 [facility] [address] [place] [id number] [address] [place] [phone] Mar, [facility] [address] [facility] [id number] [address] [place] [address] Mar, BMI 50.0-59.9, adult Z68.43 and Bipolar disorder, in partial remission, most recent episode depressed F31.75 [facility] [address] [facility] [id number] [address] [place] [address] Mar, Diabetes E11.9 ; Pure hyperc holesterolemia E78.00 ; Essential hypertension I10 ; Nausea with vomiting, unspecified R11.2 and Headache, unspecified headache type R51 [facility] [address] [facility] [id number] [address] [place] [phone] Mar, Bipolar I disorder, most rec ent episode (or current) mixed, moderate F31.62 [facility] [address] [facility] [id number] [address] [place] [phone] 16 Mar, 2018 Bipolar I disorder, most rec ent episode (or current) mixed, moderate F31.62 [facility] [address] [facility] [id number] [address] [place] [id number] Mar, Chronic pain G89.29 [facility] [address] [facility] [id number] [address] [place] [phone] Mar, Bipolar I disorder, most rec ent episode (or current) mixed, moderate F31.62 [facility] [address] [facility] [id number] [address] [place] [phone] Feb, Bipolar I disorder, most rec ent episode (or current) mixed, moderate F31.62 [facility] [address] [facility] [id number] [address] [place] [address] Feb, Chronic pain G89.29 [facility] [address] [place] [id number] [address] [place] [phone] Feb, Decubitus ulcer of right josselin t, stage 3 L89.893 and BMI 50.0-59.9, adult Z68.43 [facility] [address] [facility] [id number] [address] [place] [phone] Feb, Bipolar I disorder, most rec ent episode (or current) mixed, moderate F31.62 [facility] [address] [facility] [id number] [address] [place] [phone] Feb, [facility] [address] [facility] [id number] [address] [place] [address] January, [facility] [address] [facility] [id number] [address] [place] [address] January, Chronic pain G89.29 [facility] [address] [facility] [id number] [address] [place] [address] January, Bipolar I disorder, most rec ent episode (or current) mixed, moderate F31.62 [place] [address] [place] [id number] [address] [place] [address] January, Bipolar I disorder, most rec ent episode (or current) mixed, moderate F31.62 [place] [address] [place] [id number] [address] [place] [address] Dec, Bipolar I disorder, most rec ent episode (or current) mixed, moderate F31.62 and BMI 50.0-59.9, adult Z68.43 [place] [address] [address] Dec, Bipolar I disorder, most rec ent episode (or current) mixed, moderate F31.62 [place] [address] [address] Dec, Chronic pain G89.29 [place] [address] [place] [id number] [place] [address] Dec, DM neuro manif type II E11.4 9 ; Right flank pain R10.9 ; 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 ; Encounter for medication monitoring Z51.81 and BMI 50.0-59.9, adult Z68.43 [place] [address] [address] Dec, Bipolar I disorder, most rec ent episode (or current) mixed, moderate F31.62 [place] [address] [place] [id number] [address] [place] [address] Nov, Bipolar I disorder, most rec ent episode (or current) mixed, moderate F31.62 [place] [address] [place] [id number] [address] [place] [address] Nov, Chronic pain G89.29 [place] [address] [place] [id number] [place] [address] Nov, Bipolar I disorder, most rec ent episode (or current) mixed, moderate F31.62 [place] [address] [place] [id number] [place] [address] Nov, Hypokalemia E87.6 [place] [address] [place] [id number] [place] [phone] Nov, Bipolar I disorder, most rec ent episode (or current) mixed, moderate F31.62 [place] [address] [place] [id number] [place] [address] Oct, Chronic pain G89.29 [place] [address] [place] [id number] [place] [address] Oct, BMI 50.0-59.9, adult Z68.43 and Bipolar I disorder, most recent episode (or current) mixed, moderate F31.62 [place] [address] [place] [id number] [place] [address] Oct, Bipolar I disorder, most rec ent episode (or current) mixed, moderate F31.62 [place] [address] [address] Oct, [place] [address] [address] Oct, Hypokalemia E87.6 [place] [address] [place] [id number] [place] [address] Oct, DM neuro manif type II E11.4 9 [place] [address] [address] Oct, Bipolar I disorder, most rec ent episode (or current) mixed, moderate F31.62 [place] [address] [place] [id number] [place] [address] Oct, Bipolar I disorder, most rec ent episode (or current) mixed, moderate F31.62 [place] [address] [place] [id number] [place] [address] 14 Oct, 2017 Hyperkalemia E87.5 ; Falling R29.6 ; BMI 50.0-59.9, adult Z68.43 and Acute left ankle pain M25.572 [place] [id number] [place] [address] 08 Oct, 2017 DM neuro manif type II E11.4 9 [facility] [address] [place] [id number] [address] [place] [address] Oct, [facility] [address] [place] [id number] [place] [address] Sep, Chronic pain G89.29 [place] [address] [place] [id number] [address] [place] [address] Sep, [place] [address] [place] [id number] [place] [address] Sep, Bilateral primary osteoarthr itis of knee M17.0 [place] [address] [address] Sep, Generalized edema R60.1 [place] [address] [address] 16 Sep, 2017 Bipolar I disorder, most rec ent episode (or current) mixed, moderate F31.62 [place] [address] [address] 15 Sep, 2017 Hypoxia R09.02 ; Other hyper volemia E87.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 ; Anemia of chronic illness D63.8 and BMI 50.0- 59.9, adult Z68.43 [place] [address] [address] Sep, [place] [address] [address] Sep, Bipolar I disorder, most rec ent episode (or current) mixed, moderate F31.62 [place] [address] [place] [address] Aug, Chronic pain G89.29 [facility] [address] [facility] [id number] [address] [place] [address] Aug, Generalized edema R60.1 [facility] [address] [facility] [id number] [address] [place] [address] 18 Aug, 2017 [facility] [address] [place] [id number] [address] [place] [phone] 18 Aug, 2017 [facility] [address] [facility] [id number] [address] [place] [phone] 14 Aug, 2017 Bipolar I disorder, most rec ent episode (or current) mixed, moderate F31.62 [facility] [address] [place] [id number] [address] [place] [phone] 07 Aug, 2017 Bipolar I disorder, most rec ent episode (or current) mixed, moderate F31.62 [place] [address] [place] [id number] [address] [place] [phone] 04 Aug, 2017 Chronic pain G89.29 [facility] [address] [facility] [id number] [address] [place] [phone] 30 Jul, 2017 Bipolar I disorder, most rec ent episode (or current) mixed, moderate F31.62 [facility] [address] [facility] [id number] [address] [place] [address] Jul, Bipolar I disorder, most rec ent episode (or current) mixed, moderate F31.62 and BMI 60.0-69.9, adult Z68.44 [facility] [address] [facility] [id number] [address] [place] [phone] 16 Jul, 2017 Bipolar I disorder, most rec ent episode (or current) mixed, moderate F31.62 [facility] [address] [facility] [id number] [address] [place] [phone] 06 Jul, 2017 Chronic pain G89.29 [facility] [address] [place] [id number] [address] [place] [address] Jul, Bipolar I disorder, most rec ent episode (or current) mixed, moderate F31.62 [facility] [address] [facility] [id number] [address] [place] [address] Jun, Polyneuropathy associated wi th underlying disease G63 and Diabetes E11.9 [facility] [address] [facility] [id number] [address] [place] [phone] 16 Jun, 2017 Bipolar I disorder, most rec ent episode (or current) mixed, moderate F31.62 [facility] [address] [facility] [id number] [address] [place] [address] Jun, Chronic pain G89.29 [facility] [address] [facility] [id number] [address] [place] [phone] May, Bipolar I disorder, most rec ent episode (or current) mixed, moderate F31.62 [place] [address] [place] [id number] [address] [place] [phone] May, Bipolar I disorder, most rec ent episode (or current) mixed, moderate F31.62 [facility] [address] [facility] [id number] [address] [place] [phone] 20 May, 2017 Diabetic polyneuropathy asso ciated with type 2 diabetes mellitus E11.42 [facility] [address] [facility] [id number] [address] [place] [phone] 18 May, 2017 Bipolar I disorder, most rec ent episode (or current) mixed, moderate F31.62 [facility] [address] [facility] [id number] [address] [place] [id number] 13 May, 2017 Bipolar I disorder, most rec ent episode (or current) mixed, moderate F31.62 [facility] [address] [facility] [id number] [address] [place] [phone] May, Chronic pain G89.29 [facility] [address] [facility] [id number] [address] [place] [phone] Apr, Bipolar I disorder, most rec ent episode (or current) mixed, moderate F31.62 [facility] [address] [id number] [address] [place] [phone] Apr, [facility] [address] [id number] [address] [place] [address] Apr, Chronic pain G89.29 and DM n euro manif type II E11.49 [facility] [address] [id number] [address] [place] [phone] Apr, [facility] [address] [id number] [address] [place] [phone] Apr, Bipolar I disorder, most rec ent episode (or current) mixed, moderate F31.62 [facility] [address] [facility] [id number] [address] [place] [phone] Apr, Chronic pain G89.29 [facility] [address] [facility] [id number] [address] [place] [phone] Apr, Iliotibial band syndrome, le ft M76.32 [facility] [address] [facility] [id number] [address] [place] [phone] Apr, Bipolar I disorder, most rec ent episode (or current) mixed, moderate F31.62 [facility] [address] [facility] [id number] [address] [place] [phone] Mar, Bipolar I disorder, most rec ent episode (or current) mixed, moderate F31.62 [facility] [address] [facility] [id number] [address] [place] [phone] Mar, Bipolar I disorder, most rec ent episode (or current) mixed, moderate F31.62 [facility] [address] [facility] [id number] [address] [place] [phone] Mar, [facility] [address] [facility] [id number] [address] [place] [phone] Mar, Bipolar I disorder, most rec ent episode (or current) mixed, moderate F31.62 [facility] [address] [facility] [id number] [address] [place] [address] Mar, Chronic pain G89.29 [facility] [address] [id number] [address] [place] [phone] Mar, Bipolar I disorder, most rec ent episode (or current) mixed, moderate F31.62 [facility] [address] [facility] [id number] [address] [place] [phone] Mar, Bipolar I disorder, most rec ent episode (or current) mixed, moderate F31.62 [facility] [address] [id number] [address] [place] [address] Mar, Acute pain of left knee M25. 562 ; Left hip pain M25.552 ; Generalized edema R60.1 and Tongue swelling R22.0 [facility] [address] [facility] [id number] [address] [place] [phone] Mar, [facility] [address] [facility] [id number] [address] [place] [phone] Feb, Chronic pain G89.29 [facility] [address] [facility] [id number] [address] [place] [phone] Feb, Diabetes E11.9 [facility] [address] [facility] [id number] [address] [place] [phone] January, Chronic pain G89.29 [facility] [address] [facility] [id number] [address] [place] [phone] January, [facility] [address] [facility] [id number] [address] [place] [phone] January, Bipolar I disorder, most rec ent episode (or current) mixed, moderate F31.62 [facility] [address] [facility] [id number] [address] [place] [phone] Dec, Bipolar I disorder, most rec ent episode (or current) mixed, moderate F31.62 [facility] [address] [facility] [id number] [address] [place] [phone] 24 Apr, 2017 Chronic pain G89.29 [facility] [address] [id number] [address] [place] [phone] Dec, Bipolar I disorder, most rec ent episode (or current) mixed, moderate F31.62 [facility] [address] [facility] [id number] [address] [place] [phone] Dec, Diabetes E11.9 ; Essential h ypertension I10 ; Chronic pain G89.29 and Morbid obesity E66.01 [facility] [address] [facility] [id number] [address] [place] [phone] Dec, [facility] [address] [facility] [id number] [address] [place] [phone] Dec, Bipolar I disorder, most rec ent episode (or current) mixed, moderate F31.62 [facility] [address] [facility] [id number] [address] [place] [phone] Dec, Bipolar I disorder, most rec ent episode (or current) mixed, moderate F31.62 [facility] [address] [facility] [id number] [address] [place] [phone] Nov, Chronic pain G89.29 [facility] [address] [facility] [id number] [address] [place] [phone] Nov, Bipolar I disorder, most rec ent episode (or current) mixed, moderate F31.62 [facility] [address] [facility] [id number] [address] [place] [phone] Nov, [facility] [address] [facility] [id number] [address] [place] [phone] Nov, Bipolar I disorder, most rec ent episode (or current) mixed, moderate F31.62 [facility] [address] [facility] [id number] [address] [place] [phone] Nov, Bipolar I disorder, most rec ent episode (or current) mixed, moderate F31.62 [facility] [address] [facility] [id number] [address] [place] [phone] Nov, [facility] [address] [id number] [address] [place] [phone] Nov, [facility] [address] [id number] [address] [place] [phone] Nov, [facility] [address] [id number] [address] [place] [phone] Oct, Chronic pain G89.29 [facility] [address] [id number] [address] [place] [id number] Oct, Bipolar I disorder, most rec ent episode (or current) mixed, moderate F31.62 [facility] [address] [id number] [address] [place] [phone] Oct, [facility] [address] [facility] [id number] [address] [place] [phone] Oct, Chronic pain G89.29 ; Diabet es E11.9 ; Anxiety F41.9 and 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 [facility] [address] [id number] [address] [place] [phone] Oct, [facility] [address] [facility] [id number] [address] [place] [id number] Oct, Diabetes E11.9 [facility] [address] [id number] [address] [place] [phone] Oct, Bipolar I disorder, most rec ent episode (or current) mixed, moderate F31.62 [facility] [address] [id number] [address] [place] [phone] Sep, Chronic pain G89.29 [facility] [address] [facility] [id number] [address] [place] [address] Sep, Chronic pain G89.29 [facility] [address] [facility] [id number] [address] [place] [phone] Aug, Chronic pain G89.29 [facility] [address] [facility] [id number] [address] [place] [phone] Jul, [facility] [address] [place] [id number] [address] [place] [address] Jul, Diabetes E11.9 [facility] [address] [place] [id number] [address] [place] [id number] Jul, Chronic pain G89.29 [place] [address] [place] [id number] [address] [place] [address] Jul, Bipolar I disorder, most rec ent episode (or current) mixed, moderate F31.62 [place] [address] [place] [id number] [address] [place] [phone] Jun, Bipolar I disorder, most rec ent episode (or current) mixed, moderate F31.62 [place] [address] [place] [id number] [address] [place] [id number] Jun, [place] [address] [place] [id number] [address] [place] [phone] Jun, Bipolar I disorder, most rec ent episode (or current) mixed, moderate F31.62 [place] [address] [place] [id number] [address] [place] [address] May, Insomnia, unspecified type G 47.00 [place] [address] [place] [id number] [address] [place] [phone] May, Bipolar I disorder, most rec ent episode (or current) mixed, moderate F31.62 [place] [address] [facility] [id number] [address] [place] [phone] 14 May, 2016 [place] [address] [place] [id number] [address] [place] [phone] May, Bipolar I disorder, most rec ent episode (or current) mixed, moderate F31.62 [place] [address] [place] [id number] [address] [place] [phone] May, Diabetes E11.9 and Essential hypertension I10 [facility] [address] [id number] [address] [place] [phone] Apr, Chronic pain G89.29 [facility] [address] [facility] [id number] [address] [place] [address] Apr, Bipolar I disorder, most rec ent episode (or current) mixed, moderate F31.62 [place] [address] [facility] [id number] [address] [place] [address] Apr, [place] [address] [facility] [id number] [address] [place] [phone] Apr, [place] [address] [facility] [id number] [address] [place] [phone] Mar, Chronic pain G89.29 ; Headac he, unspecified headache type R51 ; Neuropathy G62.9 ; Pain of right hip joint M25.551 and Essential hypertension I10 [place] [address] [facility] [id number] [address] [place] [address] Mar, Chronic pain G89.29 [place] [address] [facility] [id number] [address] [place] [phone] Mar, Bipolar I disorder, most rec ent episode (or current) mixed, moderate F31.62 [place] [address] [facility] [id number] [address] [place] [phone] Feb, Bipolar I disorder, most rec ent episode (or current) mixed, moderate F31.62 and Insomnia, unspecified type G47.00 [place] [address] [facility] [id number] [address] [place] [id number] Feb, Chronic pain G89.29 [place] [address] [facility] [id number] [address] [place] [phone] Feb, Bipolar I disorder, most rec ent episode (or current) mixed, moderate F31.62 [place] [address] [facility] [id number] [address] [place] [phone] January, Bipolar I disorder, most rec ent episode (or current) mixed, moderate F31.62 [facility] [address] [id number] [address] [place] [id number] January, Chronic pain G89.29 [facility] [address] [facility] [id number] [address] [place] [phone] January, Chronic pain G89.29 and Esse ntial hypertension I10 [facility] [address] [id number] [address] [place] [phone] January, Bipolar I disorder, most rec ent episode (or current) mixed, moderate F31.62 [facility] [address] [id number] [address] [place] [phone] Dec, [facility] [address] [facility] [id number] [address] [place] [id number] Dec, [facility] [address] [facility] [id number] [address] [place] [phone] Dec, [facility] [address] [facility] [id number] [address] [place] [phone] Dec, [facility] [address] [facility] [id number] [address] [place] [phone] Nov, Reactive airway disease J45. 909 [facility] [address] [place] [id number] [address] [place] [id number] Nov, [facility] [address] [facility] [id number] [address] [place] [phone] Nov, [facility] [address] [facility] [id number] [address] [place] [phone] Nov, [facility] [address] [facility] [id number] [address] [place] [phone] Nov, [facility] [address] [facility] [id number] [address] [place] [address] Nov, Onychomycosis B35.1 ; Hammer toe M20.40 ; [place] or callus L84 and DM neuro manif type II E11.49 [facility] [address] [place] [id number] [address] [place] [address] Nov, Chronic pain G89.29 ; Leukoc ytosis D72.829 and Diabetes E11.9 [facility] [address] [facility] [id number] [address] [place] [phone] Nov, [place] [address] [place] [id number] [address] [place] [phone] Oct, Bronchitis J40 [facility] [address] [place] [id number] [address] [place] [address] Oct, [place] [address] [address] Oct, [place] [address] [address] Oct, Mastoiditis, unspecified lat erality H70.90 and Type 2 diabetes mellitus with complication E11.8 [place] [address] [place] [id number] [address] [place] [address] Sep, [place] [address] [address] Sep, Dysuria R30.0 ; Cough R05 ; Benign prostatic hyperplasia with lower urinary tract symptoms, unspecified morphology N40.1 ; Hypokalemia E87.6 and Eustachian tube dysfunction, unspecified laterality H69.80 [place] [address] [place] [id number] [address] [place] [address] Sep, Moderate mixed bipolar I dis order F31.62 [place] [address] [address] Sep, Hypokalemia E87.6 [place] [address] [place] [id number] [address] [place] [phone] Sep, [place] [address] [address] Sep, Upper respiratory tract infe ction, unspecified type J06.9 [facility] [address] [id number] [address] [place] [phone] Aug, [facility] [address] [id number] [address] [place] [address] Aug, Dysuria R30.0 [facility] [address] [id number] [address] [place] [phone] Aug, [facility] [address] [id number] [address] [place] [phone] Jul, [facility] [address] [id number] [address] [place] [phone] Jul, [facility] [address] [id number] [address] [place] [address] Jul, [facility] [address] [id number] [address] [place] [phone] Jul, [facility] [address] [id number] [address] [place] [phone] Jun, [facility] [address] [id number] [address] [place] [phone] Jun, [facility] [address] [id number] [address] [place] [phone] Jun, [facility] [address] [id number] [address] [place] [phone] May, [facility] [address] [id number] [address] [place] [phone] May, Bipolar I disorder, most rec ent episode (or current) mixed, moderate 296.62 [facility] [address] [id number] [address] [place] [phone] 16 May, 2015 [facility] [address] [id number] [address] [place] [id number] May, Bipolar I disorder, most rec ent episode (or current) mixed, moderate 296.62 and Major depressive disorder, recurrent episode, severe, specified as with psychotic behavior 296.34 [facility] [address] [facility] [id number] [address] [place] [id number] May, Bipolar I disorder, most rec ent episode (or current) mixed, moderate 296.62 [facility] [address] [facility] [id number] [address] [place] [phone] May, [facility] [address] [facility] [id number] [address] [place] [phone] Apr, [facility] [address] [facility] [id number] [address] [place] [phone] Apr, [facility] [address] [place] [id number] [address] [place] [phone] Apr, Unspecified disorder of kidn ey and ureter 593.9 and Diabetes mellitus type 2, uncontrolled 250.02 [facility] [address] [place] [id number] [address] [place] [phone] Apr, [facility] [address] [facility] [id number] [address] [place] [phone] Apr, [facility] [address] [place] [id number] [address] [place] [phone] Apr, [facility] [address] [facility] [id number] [address] [place] [phone] Apr, [facility] [address] [place] [id number] [address] [place] [id number] Apr, Diabetes mellitus type II, u ncontrolled 250.02 [facility] [address] [facility] [id number] [address] [place] [phone] Apr, [facility] [address] [facility] [id number] [address] [place] [phone] Mar, [facility] [address] [facility] [id number] [address] [place] [phone] Mar, [facility] [address] [facility] [id number] [address] [place] [phone] Mar, [facility] [address] [place] [id number] [address] [place] [address] Mar, Major depressive disorder, r ecurrent episode, severe, specified as with psychotic behavior 296.34 and Bipolar I disorder, most recent episode (or current) mixed, moderate 296.62 [facility] [address] [place] [id number] [address] [place] [address] Mar, Diabetes 250.00 ; Anuria 788 .5 ; Nausea and vomiting 787.01 and Diarrhea 787.91 [facility] [address] [place] [id number] [address] [place] [address] Mar, Diabetes 250.00 [facility] [address] [place] [id number] [address] [place] [phone] Mar, [facility] [address] [place] [id number] [address] [place] [address] Mar, Diabetes 250.00 [facility] [address] [facility] [id number] [address] [place] [phone] Mar, [facility] [address] [place] [id number] [address] [place] [phone] Mar, [facility] [address] [place] [id number] [address] [place] [address] Mar, [facility] [address] [place] [id number] [address] [place] [address] Mar, [facility] [address] [place] [id number] [address] [place] [address] Mar, Bipolar I disorder, most rec ent episode (or current) mixed, moderate 296.62 and Major depressive disorder, recurrent episode, severe, specified as with psychotic behavior 296.34 [facility] [address] [place] [id number] [address] [place] [address] Mar, Magnesium deficiency 275.2 ; Hypokalemia 276.8 ; Nausea & vomiting 787.01 and Diabetes mellitus type 2, uncontrolled 250.02 [place] [address] [phone] Feb, [place] [address] [address] Feb, Bipolar I disorder, most rec ent episode (or current) mixed, moderate 296.[address] [address] Feb, Nausea and vomiting 787.01 ; Left elbow pain 719.42 ; Anuria 788.5 and Diabetes 250.[address] [address] Feb, [address] [address] Feb, Hypopotassemia 276.8 and Hyp okalemia 276.[address] [address] Feb, Hypopotassemia 276.8 and Hyp okalemia 276.[address] [address] Feb, Seborrheic keratoses 702.[address] [address] Feb, Hypopotassemia 276.8 and Low magnesium levels 275.2 [place] [address] [id number] January, [address] [address] January, [place] [address] [id number] January, [place] [address] [address] January, Scalp lesion 709.9 [facility] [address] [id number] [address] [place] [id number] January, [facility] [address] [id number] [address] [place] [id number] Dec, Tear of medial cartilage or meniscus of knee, current 836.0 and 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 [facility] [address] [id number] [address] [place] [id number] Dec, [facility] [address] [id number] [address] [place] [id number] Dec, [facility] [address] [id number] [address] [place] [id number] Dec, Squamous cell carcinoma, 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 [facility] [address] [id number] [address] [place] [id number] Dec, [facility] [address] [id number] [address] [place] [id number] Dec, [facility] [address] [id number] [address] [place] [id number] Nov, [facility] [address] [id number] [address] [place] [address] [address] Nov, [facility] [address] [id number] [address] [place] [id number] Nov, [facility] [address] [id number] [address] [place] [id number] Nov, [facility] [address] [id number] [address] [place] [id number] Nov, [facility] [address] [id number] [address] [place] [id number] Nov, [facility] [address] [id number] [address] [place] [address] Nov, [facility] [address] [id number] [address] [place] [address], [place] [address] Nov, 2014 [facility] [address] [id number] [address] [place] [address], [place] [address] Nov, [facility] [address] [id number] [address] [place] [address], [place] [address] Nov, 2014 [facility] [address] [id number] [address] [place] [address], [place] [address] Nov, 2014 [facility] [address] [id number] [address] [place] [address], [place] [address] Nov, [facility] [address] [id number] [address] [place] [address], [place] [address] Oct, 2014 [facility] [address] [id number] [address] [place] [address], [place] [address] Oct, 2014 [facility] [address] [id number] [address] [place] [address], [place] [address] Oct, 2014 [facility] [address] [id number] [address] [place] [address], [place] [address] Oct, 2014 [facility] [address] [id number] [address] [place] [id number] Oct, 2014 [facility] [address] [id number] [address] [place] [id number] Oct, 2014 [facility] [address] [id number] [address] [place] [id number] Oct, 2014 [facility] [address] [id number] [address] [place] [address], [place] [address] Oct, 2014 [facility] [address] [id number] [address] [place] [id number] Oct, 2014 [facility] [address] [id number] [address] [place] [id number] Sep, [facility] [address] [id number] [address] [place] [id number] Sep, [facility] [address] [id number] [address] [place] [address], [place] [address] Sep, [facility] [address] [id number] [address] [place] [address], [place] [address] Sep, [facility] [address] [id number] [address] [place] [address], [place] [address] Sep, [facility] [address] [id number] [address] [place] [address], [place] [address] Sep, [facility] [address] [id number] [address] [place] [address], [place] [address] Sep, [facility] [address] [id number] [address] [place] [address], [place] [address] Sep, [facility] [address] [id number] [address] [place] [address], [place] [address] Sep, [facility] [address] [id number] [address] [place] [address], [place] [address] Sep, [facility] [address] [id number] [address] [place] [address], [place] [address] Sep, [facility] [address] [id number] [address] [place] [address], [place] [address] Sep, [facility] [address] [id number] [address] [place] [address], [place] [address] Sep, [facility] [address] [id number] [address] [place] [address], [place] [address] Sep, [facility] [address] [id number] [address] [place] [address], [place] [address] Sep, [facility] [address] [id number] [address] [place] [address], [place] [address] Sep, [facility] [address] [id number] [address] [place] [address], [place] [address] Aug, [facility] [address] [id number] [facility] [place] [address] Aug, [facility] [address] [id number] [facility] [place] [address] Aug, [facility] [address] [id number] [facility] [place] [address] Aug, [facility] [address] [id number] [facility] [place] [address] Aug, [facility] [address] [id number] [facility] [place] [address] Aug, [facility] [address] [id number] [facility] [place] [address] Aug, [facility] [address] [id number] [address] [place] [address], [place] [address] Aug, [facility] [address] [id number] [address] [place] [address], [place] [address] Aug, [facility] [address] [id number] [address] [place] [address], [place] [address] Aug, [facility] [address] [id number] [address] [place] [address], [place] [address] Aug, [facility] [address] [place] [id number] Aug, [facility] [address] [id number] [address] [place] [address], [place] [address] Aug, [facility] [address] [id number] [address] [place] [address], [place] [address] Aug, [facility] [address] [id number] [address] [place] [address], [place] [address] Aug, [facility] [address] [id number] [address] [place] [address], [place] [address] Aug, [facility] [address] [id number] [address] [place] [address], [place] [address] Aug, [facility] [address] [id number] [address] [place] [address], [place] [address] Aug, [facility] [address] [id number] [address] [place] [address], [place] [address] Aug, [facility] [address] [id number] [address] [place] [address], [place] [address] Aug, [facility] [address] [id number] [address] [place] [address], [place] [address] Aug, [facility] [address] [id number] [address] [place] [address], [place] [address] Aug, [facility] [address] [id number] [address] [place] [address], [place] [address] Aug, [facility] [address] [id number] [address] [place] [address], [place] [address] Aug, [facility] [address] [id number] [address] [place] [address], [place] [address] Aug, [facility] [address] [id number] [address] [place] [address], [place] [address] Aug, [facility] [address] [id number] [address] [place] [address], [place] [address] Aug, [facility] [address] [id number] [address] [place] [address], [place] [address] Aug, [facility] [address] [id number] [address] [place] [address], [place] [address] Aug, [facility] [address] [id number] [address] [place] [address], [place] [address] Aug, [facility] [address] [id number] [address] [place] [address], [place] [address] Jul, [facility] [address] [id number] [address] [place] [address], [place] [address] Jul, [facility] [address] [id number] [address] [place] [address] Jul, [facility] [address] [id number] [address] [place] [address], [place] [address] Jul, [facility] [address] [id number] [address] [place] [address] Jul, [facility] [address] [id number] [address] [place] [address], [place] [address] Jul, [facility] [address] [id number] [address] [place] [address] Jul, [facility] [address] [id number] [address] [place] [address], [place] [address] Jul, [facility] [address] [id number] [address] [place] [address], [place] [address] Jul, [facility] [address] [id number] [address] [place] [address] Jul, [facility] [address] [id number] [address] [place] [address], [place] [address] Jun, [facility] [address] [id number] [address] [place] [address] Jun, [facility] [address] [id number] [address] [place] [address] Jun, [facility] [address] [id number] [address] [place] [address] Jun, [facility] [address] [id number] [address] [place] [address] Jun, [facility] [address] [id number] [address] [place] [address] Jun, [facility] [address] [id number] [address] [place] [address] Jun, [facility] [address] [id number] [address] [place] [address] Jun, [facility] [address] [id number] [address] [place] [address], [place] [address] Jun, [facility] [address] [id number] [address] [place] [address], [place] [address] Jun, [facility] [address] [id number] [address] [place] [address], [place] [address] 29 May, 2013 [facility] [address] [id number] [address] [place] [address], [place] [address] 29 Sep, 2013 [facility] [address] [id number] [address] [place] [address], [place] [address] 26 May, 2013 [facility] [address] [id number] [address] [place] [address], [place] [address] 26 May, 2013 [facility] [address] [id number] [address] [place] [address], [place] [address] 17 May, 2013 [facility] [address] [id number] [address] [place] [address], [place] [address] 17 May, 2013 [facility] [address] [id number] [address] [place] [address], [place] [address] 15 May, 2013 [facility] [address] [id number] [address] [place] [address], [place] [address] 15 May, 2013 [facility] [address] [id number] [address] [place] [address], [place] [address] 15 May, 2013 [facility] [address] [id number] [address] [place] [address], [place] [address] 15 May, 2013 [facility] [address] [id number] [address] [place] [address], [place] [address] 10 Sep, 2013 [facility] [address] [id number] [address] [place] [address], [place] [address] 10 May, 2013 [facility] [address] [id number] [address] [place] [address], [place] [address] 09 May, 2013 [facility] [address] [id number] [address] [place] [address], [place] [address] May, [facility] [address] [id number] [facility] [place] [address] May, [facility] [address] [id number] [address] [place] [address], [place] [address] May, [facility] [address] [id number] [address] [place] [address], [place] [address] Apr, [facility] [address] [id number] [address] [place] [address], [place] [address] Apr, [facility] [address] [id number] [address] [place] [address], [place] [address] Apr, [facility] [address] [id number] [address] [place] [address], [place] [address] Apr, [facility] [address] [id number] [address] [place] [address], [place] [address] Apr, [facility] [address] [id number] [address] [place] [address], [place] [address] Apr, [facility] [address] [id number] [address] [place] [address], [place] [address] Apr, [facility] [address] [id number] [address] [place] [address], [place] [address] Apr, [facility] [address] [id number] [address] [place] [address], [place] [address] Apr, [facility] [address] [id number] [address] [place] [address], [place] [address] Apr, [facility] [address] [id number] [address] [place] [address], [place] [address] Apr, [facility] [address] [id number] [address] [place] [address], [place] [address] Apr, [facility] [address] [id number] [address] [place] [address], [place] [address] Apr, [facility] [address] [id number] [address] [place] [address], [place] [address] Apr, [facility] [address] [id number] [address] [place] [address], [place] [address] Apr, [facility] [address] [id number] [address] [place] [address], [place] [address] Mar, [facility] [address] [id number] [address] [place] [address], [place] [address] Mar, [facility] [address] [id number] [address] [place] [address], [place] [address] Mar, [facility] [address] [id number] [address] [place] [address], [place] [address] Mar, [facility] [address] [id number] [address] [place] [address], [place] [address] Mar, [facility] [address] [id number] [address] [place] [address], [place] [address] Mar, [facility] [address] [id number] [address] [place] [address], [place] [address] Mar, [facility] [address] [id number] [address] [place] [address], [place] [address] Mar, [facility] [address] [id number] [address] [place] [address], [place] [address] Mar, [facility] [address] [id number] [address] [place] [address], [place] [address] Mar, [facility] [address] [id number] [address] [place] [address], [place] [address] Mar, [facility] [address] [id number] [address] [place] [address], [place] [address] Mar, [facility] [address] [id number] [address] [place] [address], [place] [address] Mar, [facility] [address] [id number] [address] [place] [address], [place] [address] Mar, [facility] [address] [id number] [facility] [place] [address] Mar, 2013 [facility] [address] [id number] [facility] [place] [address] Mar, 2013 [facility] [address] [id number] [facility] [place] [address] Mar, [facility] [address] [id number] [facility] [place] [address] Mar, [facility] [address] [id number] [facility] [place] [address] Feb, [facility] [address] [id number] [address] [place] [address], [place] [address] Feb, [facility] [address] [id number] [address] [place] [address], [place] [address] Feb, [facility] [address] [id number] [address] [place] [address], [place] [address] Feb, [facility] [address] [id number] [address] [place] [address], [place] [address] Feb, [facility] [address] [id number] [address] [place] [address], [place] [address] Feb, [facility] [address] [id number] [address] [place] [address], [place] [address] Feb, [facility] [address] [id number] [address] [place] [address], [place] [address] Feb, [facility] [address] [id number] [address] [place] [address], [place] [address] Feb, [facility] [address] [id number] [address] [place] [address], [place] [address] Feb, [facility] [address] [id number] [address] [place] [address], [place] [address] Feb, [facility] [address] [id number] [address] [place] [address], [place] [address] Feb, [facility] [address] [id number] [facility] [place] [address] Feb, [facility] [address] [id number] [address] [place] [address], [place] [address] Feb, [facility] [address] [id number] [address] [place] [address], [place] [address] January, [facility] [address] [id number] [address] [place] [address], [place] [address] January, [facility] [address] [id number] [address] [place] [address], [place] [address] January, [facility] [address] [id number] [address] [place] [address], [place] [address] January, [facility] [address] [id number] [address] [place] [address], [place] [address] January, [facility] [address] [id number] [address] [place] [address], [place] [address] January, [facility] [address] [id number] [address] [place] [address], [place] [address] January, [facility] [address] [id number] [address] [place] [address], [place] [address] January, [facility] [address] [id number] [address] [place] [address], [place] [address] January, [facility] [address] [id number] [address] [place] [address], [place] [address] January, [facility] [address] [id number] [address] [place] [address], [place] [address] January, [facility] [address] [id number] [address] [place] [address], [place] [address] January, [facility] [address] [id number] [address] [place] [address], [place] [address] January, [facility] [address] [id number] [facility] [place] [address] January, [facility] [address] [id number] [address] [place] [address], [place] [address] Dec, [facility] [address] [id number] [address] [place] [address], [place] [address] Dec, [facility] [address] [id number] [address] [place] [address], [place] [address] Dec, [facility] [address] [id number] [address] [place] [address], [place] [address] Dec, [facility] [address] [id number] [address] [place] [address], [place] [address] Dec, [facility] [address] [id number] [address] [place] [address], [place] [address] Dec, [facility] [address] [id number] [address] [place] [address], [place] [address] Dec, [facility] [address] [id number] [address] [place] [address], [place] [address] Dec, [facility] [address] [id number] [address] [place] [address], [place] [address] Dec, [facility] [address] [id number] [address] [place] [address], [place] [address] Dec, [facility] [address] [id number] [address] [place] [address], [place] [address] Nov, [facility] [address] [id number] [address] [place] [address], [place] [address] Nov, [facility] [address] [id number] [address] [place] [address], [place] [address] Nov, [facility] [address] [id number] [address] [place] [address], [place] [address] Nov, [facility] [address] [id number] [address] [place] [address], [place] [address] Nov, [facility] [address] [id number] [address] [place] [address], [place] [address] 08 Nov, 2013 [facility] [address] [id number] [address] [place] [address], [place] [address] Nov, [facility] [address] [id number] [address] [place] [address], [place] [address] Nov, [facility] [address] [id number] [address] [place] [address], [place] [address] Nov, [facility] [address] [id number] [address] [place] [address], [place] [address] Nov, [facility] [address] [id number] [address] [place] [address], [place] [address] Oct, [facility] [address] [id number] [address] [place] [address], [place] [address] Oct, [facility] [address] [id number] [address] [place] [address], [place] [address] Oct, [facility] [address] [id number] [address] [place] [address], [place] [address] Oct, [facility] [address] [id number] [address] [place] [address], [place] [address] Oct, [facility] [address] [id number] [address] [place] [address], [place] [address] Oct, [facility] [address] [id number] [address] [place] [address], [place] [address] 14 Oct, 2013 [facility] [address] [id number] [address] [place] [address], [place] [address] Oct, [facility] [address] [id number] [address] [place] [address], [place] [address] Oct, [facility] [address] [id number] [address] [place] [address], [place] [address] Oct, [facility] [address] [id number] [address] [place] [address], [place] [address] 04 Oct, 2013 [facility] [address] [id number] [address] [place] [address], [place] [address] Oct, [facility] [address] [id number] [address] [place] [address], [place] [address] Oct, [facility] [address] [id number] [address] [place] [address], [place] [address] Oct, [facility] [address] [id number] [address] [place] [address], [place] [address] Sep, [facility] [address] [id number] [address] [place] [address], [place] [address] Sep, [facility] [address] [id number] [address] [place] [address], [place] [address] Sep, [facility] [address] [id number] [address] [place] [address], [place] [address] Sep, [facility] [address] [id number] [address] [place] [address], [place] [address] Sep, [facility] [address] [id number] [address] [place] [address], [place] [address] Sep, [facility] [address] [id number] [address] [place] [address], [place] [address] Sep, [facility] [address] [id number] [address] [place] [address], [place] [address] Sep, [facility] [address] [id number] [address] [place] [address], [place] [address] Sep, [facility] [address] [id number] [address] [place] [address], [place] [address] Sep, [facility] [address] [id number] [address] [place] [address], [place] [address] Aug, [facility] [address] [id number] [address] [place] [address] [address] Aug, [facility] [address] [id number] [address] [place] [address], [place] [address] Jul, [facility] [address] [id number] [address] [place] [address], [place] [address] Jul, [facility] [address] [id number] [address] [place] [address], [place] [address] Jul, [facility] [address] [id number] [address] [place] [address], [place] [address] Jul, [facility] [address] [id number] [address] [place] [address], [place] [address] Jul, [facility] [address] [id number] [address] [place] [address], [place] [address] Jul, [facility] [address] [id number] [address] [place] [address], [place] [address] Jul, [facility] [address] [id number] [address] [place] [address], [place] [address] Jul, [facility] [address] [id number] [address] [place] [address], [place] [address] Jul, [facility] [address] [id number] [address] [place] [address], [place] [address] Jul, [facility] [address] [id number] [address] [place] [address] Jul, [facility] [address] [id number] [address] [place] [address] Jul, [facility] [address] [id number] [address] [place] [address], [place] [address] Jul, [facility] [address] [id number] [address] [place] [address] Jul, [facility] [address] [id number] [address] [place] [address] Jul, [facility] [address] [id number] [address] [place] [address], [place] [address] 05 Jul, 2012 [facility] [address] [id number] [address] [place] [address], [place] [address] 05 Jul, 2012 [facility] [address] [id number] [address] [place] [address], [place] [address] Jul, 2012 [facility] [address] [id number] [address] [place] [address], [place] [address] Jul, 2012 [facility] [address] [id number] [address] [place] [address], [place] [address] Jun, 2012 [facility] [address] [id number] [address] [place] [address], [place] [address] Jun, 2012 [facility] [address] [id number] [address] [place] [address], [place] [address] Jun, 2012 [facility] [address] [id number] [address] [place] [address], [place] [address] Jun, 2012 [facility] [address] [id number] [address] [place] [address], [place] [address] Jun, 2012 [facility] [address] [id number] [address] [place] [address], [place] [address] Jun, 2012 [facility] [address] [id number] [address] [place] [address] Jun, 2012 [facility] [address] [id number] [address] [place] [address], [place] [address] Jun, 2012 [facility] [address] [id number] [address] [place] [address] Jun, [facility] [address] [id number] [address] [place] [address], [place] [address] Jun, [facility] [address] [id number] [address] [place] [id number] Jun, [facility] [address] [id number] [address] [place] [address] May, [facility] [address] [id number] [address] [place] [address], [place] [address] 25 May, 2012 [facility] [address] [id number] [address] [place] [address], [place] [address] May, 2012 [facility] [address] [id number] [address] [place] [address], [place] [address] 17 May, 2012 [facility] [address] [id number] [address] [place] [address], [place] [address] 11 May, 2012 [facility] [address] [id number] [address] [place] [address], [place] [address] 10 May, 2012 [facility] [address] [id number] [address] [place] [address], [place] [address] May, [facility] [address] [id number] [address] [place] [address], [place] [address] 05 May, 2013 [facility] [address] [id number] [address] [place] [address], [place] [address] Apr, [facility] [address] [id number] [address] [place] [address], [place] [address] Apr, [facility] [address] [id number] [address] [place] [address], [place] [address] Apr, [facility] [address] [id number] [address] [place] [address], [place] [address] Apr, [facility] [address] [id number] [address] [place] [address], [place] [address] Apr, [facility] [address] [id number] [address] [place] [address], [place] [address] Mar, [facility] [address] [id number] [address] [place] [address], [place] [address] Mar, [facility] [address] [id number] [address] [place] [address], [place] [address] Mar, [facility] [address] [id number] [address] [place] [address], [place] [address] Mar, [facility] [address] [id number] [address] [place] [address], [place] [address] Mar, [facility] [address] [id number] [address] [place] [address], [place] [address] Mar, [facility] [address] [id number] [address] [place] [address], [place] [address] Mar, [facility] [address] [id number] [address] [place] [address], [place] [address] Mar, [facility] [address] [id number] [address] [place] [address], [place] [address] Feb, [facility] [address] [id number] [address] [place] [address], [place] [address] Feb, [facility] [address] [id number] [address] [place] [address], [place] [address] January, [facility] [address] [id number] [address] [place] [address], [place] [address] January, [facility] [address] [id number] [address] [place] [address], [place] [address] Dec, [facility] [address] [id number] [address] [place] [address], [place] [address] Dec, [facility] [address] [id number] [address] [place] [address], [place] [address] Nov, [facility] [address] [id number] [address] [place] [address], [place] [address] Nov, [facility] [address] [id number] [address] [place] [address], [place] [address] Nov, [facility] [address] [id number] [address] [place] [address], [place] [address] Nov, [facility] [address] [id number] [address] [place] [address], [place] [address] Oct, [facility] [address] [id number] [address] [place] [address], [place] [address] Oct, [facility] [address] [id number] [address] [place] [address], [place] [address] Oct, [facility] [address] [id number] [address] [place] [address], [place] [address] Oct, [facility] [address] [id number] [address] [place] [address], [place] [address] 16 Oct, 2012 [facility] [address] [id number] [address] [place] [address], [place] [address] 14 Oct, 2012 [facility] [address] [id number] [address] [place] [address], [place] [address] 08 Oct, 2012 [facility] [address] [id number] [address] [place] [address], [place] [address] 07 Oct, 2012 [facility] [address] [id number] [address] [place] [address], [place] [address] 03 Oct, 2012 [facility] [address] [id number] [address] [place] [address], [place] [address] Sep, [facility] [address] [id number] [address] [place] [address], [place] [address] Sep, [facility] [address] [id number] [address] [place] [address], [place] [address] Sep, [facility] [address] [id number] [address] [place] [address], [place] [address] Sep, [facility] [address] [id number] [address] [place] [address], [place] [address] Sep, [facility] [address] [id number] [address] [place] [address], [place] [address] Sep, [facility] [address] [id number] [address] [place] [address], [place] [address] Sep, [facility] [address] [id number] [address] [place] [address], [place] [address] Sep, [facility] [address] [id number] [address] [place] [address], [place] [address] Aug, [facility] [address] [id number] [address] [place] [address], [place] [address] Aug, [facility] [address] [id number] [address] [place] [address], [place] [address] Aug, [facility] [address] [id number] [address] [place] [address], [place] [address] Aug, [facility] [address] [id number] [address] [place] [address], [place] [address] Aug, [facility] [address] [id number] [address] [place] [address], [place] [address] Aug, [facility] [address] [id number] [address] [place] [address], [place] [address] Aug, [facility] [address] [id number] [address] [place] [address], [place] [address] Aug, [facility] [address] [id number] [address] [place] [address], [place] [address] Jul, [facility] [address] [id number] [address] [place] [address], [place] [address] Jul, [facility] [address] [id number] [address] [place] [address], [place] [address] Jul, [facility] [address] [id number] [address] [place] [address], [place] [address] Jul, [facility] [address] [id number] [address] [place] [address], [place] [address] Jul, [facility] [address] [id number] [address] [place] [address], [place] [address] Jul, [facility] [address] [id number] [address] [place] [address], [place] [address] Jun, [facility] [address] [id number] [address] [place] [address], [place] [address] 25 Jun, 2012 [facility] [address] [id number] [address] [place] [address], [place] [address] Jun, [facility] [address] [id number] [address] [place] [address], [place] [address] Jun, [facility] [address] [id number] [address] [place] [address], [place] [address] Jun, [facility] [address] [id number] [address] [place] [address], [place] [address] Jun, [facility] [address] [id number] [address] [place] [address], [place] [address] 19 Jun, 2012 [facility] [address] [id number] [address] [place] [address], [place] [address] 10 Jun, 2012 [facility] [address] [id number] [address] [place] [address], [place] [address] 10 Jun, 2012 [facility] [address] [id number] [address] [place] [address], [place] [address] 26 May, 2012 [facility] [address] [id number] [address] [place] [address], [place] [address] 24 May, 2012 [facility] [address] [id number] [address] [place] [address], [place] [address] 18 May, 2012 [facility] [address] [id number] [address] [place] [address], [place] [address] 30 Apr, 2012 [facility] [address] [id number] [address] [place] [address], [place] [address] 29 Apr, 2012 [facility] [address] [id number] [address] [place] [address], [place] [address] 18 Apr, 2012 [facility] [address] [id number] [address] [place] [address], [place] [address] 14 Apr, 2012 [facility] [address] [id number] [address] [place] [address], [place] [address] Apr, [facility] [address] [id number] [address] [place] [address], [place] [address] Apr, [facility] [address] [id number] [address] [place] [address], [place] [address] Mar, [facility] [address] [id number] [address] [place] [address], [place] [address] Mar, [facility] [address] [id number] [address] [place] [address], [place] [address] Mar, [facility] [address] [id number] [address] [place] [address], [place] [address] Mar, [facility] [address] [id number] [address] [place] [address], [place] [address] Feb, [facility] [address] [id number] [address] [place] [address], [place] [address] Feb, [facility] [address] [id number] [address] [place] [address], [place] [address] Feb, [facility] [address] [id number] [address] [place] [address], [place] [address] Feb, [facility] [address] [id number] [address] [place] [address], [place] [address] Feb, [facility] [address] [id number] [address] [place] [address], [place] [address] January, [facility] [address] [id number] [address] [place] [address], [place] [address] January, [facility] [address] [id number] [address] [place] [address], [place] [address] January, [facility] [address] [id number] [address] [place] [address], [place] [address] January, [facility] [address] [id number] [address] [place] [address], [place] [address] January, [facility] [address] [id number] [address] [place] [address], [place] [address] January, [facility] [address] [id number] [address] [place] [address], [place] [address] 24 Dec, 2011 [facility] [address] [id number] [address] [place] [address], [place] [address] 24 Dec, 2011 [facility] [address] [id number] [address] [place] [address], [place] [address] Dec, [facility] [address] [id number] [address] [place] [address], [place] [address] Dec, [facility] [address] [id number] [address] [place] [address], [place] [address] Dec, [facility] [address] [id number] [address] [place] [address], [place] [address] 27 Nov, 2011 [facility] [address] [id number] [address] [place] [address], [place] [address] 14 Nov, 2011 [facility] [address] [id number] [address] [place] [address], [place] [address] 12 Nov, 2011 [facility] [address] [id number] [address] [place] [address], [place] [address] 07 Nov, 2011 [facility] [address] [id number] [address] [place] [address], [place] [address] 29 Oct, 2011 [facility] [address] [id number] [address] [place] [address], [place] [address] 28 Oct, 2011 [facility] [address] [id number] [address] [place] [address], [place] [address] 24 Oct, 2011 [facility] [address] [id number] [address] [place] [address], [place] [address] 13 Oct, 2011 [facility] [address] [id number] [address] [place] [address], [place] [address] 08 Oct, 2011 [facility] [address] [id number] [address] [place] [address], [place] [address] Sep, [facility] [address] [id number] [address] [place] [address], [place] [address] Sep, [facility] [address] [id number] [address] [place] [address], [place] [address] Sep, [facility] [address] [id number] [address] [place] [address], [place] [address] Sep, [facility] [address] [id number] [address] [place] [address], [place] [address] Sep, [facility] [address] [id number] [address] [place] [address], [place] [address] Sep, [facility] [address] [id number] [address] [place] [address], [place] [address] Aug, [facility] [address] [id number] [address] [place] [address], [place] [address] Aug, [facility] [address] [id number] [address] [place] [address], [place] [address] Aug, [facility] [address] [id number] [address] [place] [address], [place] [address] Jul, [facility] [address] [id number] [address] [place] [address] Jul, [facility] [address] [id number] [address] [place] [address] Jul, [facility] [address] [id number] [address] [place] [address] Jul, [facility] [address] [id number] [address] [place] [address], [place] [address] Jun, [facility] [address] [id number] [address] [place] [address], [place] [address] Jun, [facility] [address] [id number] [address] [place] [id number] Jun, [facility] [address] [id number] [address] [place] [id number] 10 Jun, 2011 [facility] [address] [id number] [address] [place] [address], [place] [address] 10 Jun, 2011 [facility] [address] [id number] [address] [place] [address], [place] [address] 10 Jun, 2011 [facility] [address] [id number] [address] [place] [address], [place] [address] 11 Mar, 2011 [facility] [address] [id number] [address] [place] [address], [place] [address] 18 Dec, 2010 [facility] [address] [id number] [address] [place] [address], [place] [address] 11 Dec, 2010 [facility] [address] [id number] [address] [place] [address], [place] [id number] 18 Nov, 2010 [facility] [address] [id number] [address] [place] [address], [place] [address] 16 Nov, 2010 [facility] [address] [id number] [address] [place] [address], [place] [address] 10 Sep, 2010 [facility] [address] [id number] [address] [place] [address], [place] [address] 31 Aug, 2010 [facility] [address] [id number] [address] [place] [address], [place] [address] 29 Aug, 2010 [facility] [address] [id number] [address] [place] [address], [place] [id number] 29 Aug, 2010 [facility] [address] [id number] [address] [place] [address], [place] [address] 29 Aug, 2010 [facility] [address] [id number] [address] [place] [address], [place] [address] 27 Aug, 2010 [facility] [address] [id number] [address] [place] [address], [place] [address] 14 Aug, 2010 [facility] [address] [id number] [address] [place] [address], [place] [address] 08 Aug, 2010 [facility] [address] [id number] [address] [place] [address], [place] [address] 08 Aug, 2010 [facility] [address] [id number] [address] [place] [address], [place] [address] Aug, [facility] [address] [id number] [address] [place] [address], [place] [address] Aug, [facility] [address] [id number] [address] [place] [address], [place] [address] Aug, [facility] [address] [id number] [address] [place] [address], [place] [address] Aug, [facility] [address] [id number] [address] [place] [address], [place] [address] Jul, [facility] [address] [id number] [address] [place] [address], [place] [address] Jul, [facility] [address] [id number] [address] [place] [address], [place] [address] Jul, [facility] [address] [id number] [address] [place] [address], [place] [address] Jul, [facility] [address] [id number] [address] [place] [address], [place] [address] Jul, [facility] [address] [id number] [address] [place] [address], [place] [address] Jul, [facility] [address] [id number] [address] [place] [address], [place] [address] 24 Jun, 2010 [facility] [address] [id number] [address] [place] [address], [place] [address] Jun, [facility] [address] [id number] [address] [place] [address], [place] [address] Jun, [facility] [address] [id number] [address] [place] [address], [place] [address] Jun, [facility] [address] [id number] [address] [place] [address], [place] [address] Apr, [facility] [address] [id number] [address] [place] [address], [place] [address] Mar, [facility] [address] [id number] [address] [place] [address], [place] [address] Feb, [facility] [address] [id number] [address] [place] [address], [place] [address] January, [facility] [address] [id number] [address] [place] [address], [place] [address] 15 Dec, 2009 [facility] [address] [id number] [address] [place] [address], [place] [address] Nov, [facility] [address] [id number] [address] [place] [address], [place] [address] 31 Aug, 2009 [facility] [address] [id number] [address] [place] [address], [place] [address] Aug, [facility] [address] [id number] [address] [place] [id number] Aug, [facility] [address] [id number] [address] [place] [address], [place] [address] Jul, [facility] [address] [id number] [address] [place] [id number] Jul, [facility] [address] [id number] [address] [place] [id number] Jul, [facility] [address] [id number] [address] [place] [id number] 30 Jun, 2009 [facility] [address] [id number] [address] [place] [address], [place] [address] 29 Jun, 2009 [facility] [address] [id number] [address] [place] [id number] Jun, [facility] [address] [id number] [address] [place], [place] [address], [place] [id number] Jun, [facility] [address] [id number] [address] [place] [phone] Jun, [facility] [address] [facility] [id number] [address] [place] [id number] Jun, [facility] [address] [facility] [id number] [address] [place] [id number] Apr, [facility] [address] [facility] [id number] [address] [place] [id number] Apr, [facility] [address] [facility] [id number] [address] [place] [id number] Feb, [facility] [address] [facility] [id number] [address] [place] [phone] January, [facility] [address] [facility] [id number] [address] [place] [id number] Dec, IMMUNIZATIONS No Known Immunizations SOCIAL HISTORY [...] Medical History skin cancer-basal cell [facility] (removed ) Medical History Arthritis Medical History [...] History inability to urinate 09/16/15 Hospitalization History [facility] health ea rly 2000's Hospitalization History hyperkalemia 10/2017 Hospitalization History fluid in lung
--- OUTSIDE RECORDS SUMMARY | 2020-03-01 17:07 | XMS REPORT ---
Author Author Michele WASHBURN Organization [facility] Address [address] [place] [address] Care Team Providers Care [employer] Diver Name Role Phone NOEMI WASHBURN Unavailable PROBLEMS Type Condition ICD9-CM Code SPP30-OC Code Onset Dates Condition S tatus SNOMED Code Problem Benign prostatic hyperplasia with lower urinary tract symptoms, unspecified morphology N40.1 Active 85217 6007 Problem Diabetes E11.9 Active 33353185 Problem DM neuro manif type II E11.49 Active 01867006 Problem Leukocytosis D72.829 Active 7359809 06 Problem Chronic pain G89.29 Active 8537058 1 Problem Bipolar I disorder, most recent episode (or curr ent) mixed, moderate F31.62 Active 98467353 Problem Reactive airway disease J45.909 Active 002190131903 Problem Pure hypercholesterolemia E78.00 Acti ve 520355494 Problem Dysuria R30.0 Active 88338529 Problem Bipolar disorder, in partial remission, most rec ent episode depressed F31.75 Active 34101899 Problem Hypokalemia E87.6 Active 51815634 Problem Eustachian tube dysfunction, unspecified laterality H69.80 Active 33441039 Problem Cough R05 Active 66296039 Problem Diabetic polyneuropathy associated with type 2 d iabetes mellitus E11.42 Active 71647725 Problem Essential hypertension I10 Active 21437280 Problem Bilateral primary osteoarthritis of knee M17.0 Active 067799791 Problem Polyneuropathy associated with underlying disease G63 Active 263956554 Problem Retinal edema H35.81 Active 062387 6 Problem Lymphocytosis D72.820 Active 969488 09 Problem Anemia of chronic illness D63.8 Acti ve 003520527 Problem Chronic lymphocytic leukemia C91.10 A ctive 65642991 Problem Falling R29.6 Active 851794611 Problem Pressure ulcer of other site, stage 3 L89.893 Active 594094337 Problem 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 Active 772498817 Problem Eye exam abnormal R93.8 Active 16 8315140 Problem Primary osteoarthritis of right knee M17.11 Active 742488429239786 Problem Other iron deficiency anemia D50.8 A ctive 27671896 Problem Mild cognitive impairment G31.84 Acti ve 403113941 Problem half-way (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 Z79.4 Active 140734892 Problem Anxiety F41.9 Active 56038026 Problem Type 2 diabetes mellitus with diabetic neuropathy, uns pecified E11.40 Active 91816975 Problem Insomnia, unspecified type G47.00 Act sharon 349070136 Problem Morbid obesity E66.01 Active 08790 6002 Problem Skin cancer C44.90 Active 20185132 7 Problem Bipolar disorder F31.9 Active 137 43934 Problem Chronic diastolic (congestive) heart failure I50.3 2 Active 447824010 Problem Psychophysiological insomnia F51.04 A ctive [id number] ALLERGIES No Information ENCOUNTERS Encounter Location Date Diagnosis [place] [address] [address] [facility] [id number] [address] [place] [address] Sep, [place] [address] [address] [facility] [id number] [address] [place] [address] Jul, [place] [address] [address] [facility] [id number] [address] [place] [address] Jun, [facility] [address] [facility] [facility] [id number] [address] [place] [address] Jun, [place] [address] [address] [facility] [facility] [id number] [address] [place] [address] Jun, [place] [address] [facility] [id number] [address] [place] [address] Jun, Psychophysiological insomnia F51.04 ; Chronic pain G89.29 ; Bipolar I disorder, most recent episode (or current) mixed, moderate F31.62 ; 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 ; Polyneuropathy associated with underlying disease G63 ; Type 2 diabetes mellitus with diabetic neuropathy, unspecified E11.40 ; 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.4 and Hyperglycemia R73.9 [facility] [address] [id number] [address] [place] [address] Jun, Bipolar disorder, in partial remission, most recent episode depressed F31.75 and Mild cognitive impairment G31.84 [facility] [address] [id number] [address] [place] [address] Jun, [facility] [address] [facility] [address] [facility] [id number] [address] [place] [address] Jun, Bipolar disorder F31.9 [facility] [address] [facility] [address] [facility] [id number] [address] [place] [address] May, Bipolar disorder, in partial remission, most recent episode depressed F31.75 and Mild cognitive impairment G31.84 [facility] [address] [facility] [address] [facility] [id number] [address] [place] [address] May, [facility] [address] [facility] [facility] [id number] [address] [place] [address] Apr, Chronic pain G89.29 and Bipo lar disorder F31.9 [facility] [address] [id number] [address] [place] [address] Mar, Bipolar disorder F31.9 and C hronic pain G89.29 [facility] [address] [facility] [address] [facility] [id number] [address] [place] [address] Feb, Bipolar disorder F31.9 [facility] [address] [facility] [address] [facility] [id number] [address] [place] [address] Feb, Cellulitis of right upper ex tremity L03.113 and Skin abrasion T14.8XXA [facility] [address] [id number] [address] [place] [address] Feb, Bipolar disorder, in partial remission, most recent episode depressed F31.75 and Mild cognitive impairment G31.84 [facility] [address] [id number] [address] [place] [address] Feb, Chronic pain G89.29 [facility] [address] [facility] [facility] [id number] [address] [place] [address] Feb, Bipolar disorder, in partial remission, most recent episode depressed F31.75 and Mild cognitive impairment G31.84 [facility] [address] [id number] [address] [place] [address] January, Bipolar disorder, in partial remission, most recent episode depressed F31.75 and Mild cognitive impairment G31.84 [facility] [address] [id number] [address] [place] [address] January, Chronic pain G89.29 and Bipo lar disorder F31.9 [facility] [address] [id number] [address] [place] [address] January, Bipolar disorder, in partial remission, most recent episode depressed F31.75 and Mild cognitive impairment G31.84 [facility] [address] [id number] [address] [place] [address] Dec, [facility] [address] [id number] [address] [place] [address] Dec, Chronic pain G89.29 and Bipo lar disorder F31.9 [facility] [address] [id number] [address] [place] [address] Dec, Edema of both lower extremit ies R60.0 [facility] [address] [id number] [address] [place] [address] Dec, Bipolar disorder F31.9 [facility] [address] [id number] [address] [place] [address] Dec, Bipolar disorder, in partial remission, most recent episode depressed F31.75 and Mild cognitive impairment G31.84 [facility] [address] [id number] [address] [place] [address] Nov, [facility] [address] [id number] [address] [place] [address] Nov, Chronic pain G89.29 [facility] [address] [id number] [address] [place] [address] Nov, Bipolar disorder, in partial remission, most recent episode depressed F31.75 and Mild cognitive impairment G31.84 [place] [address] [address] [place] [id number] [address] [place] [address] Nov, Bipolar disorder F31.9 [place] [address] [address] [place] [id number] [place] [address] 04 Nov, 2018 Encounter for Medicare [facility] wellness exam Z00.00 ; Polyneuropathy associated with [...] unspecified morphology N40.1 and Essential hypertension I10 [place] [address] [address] [place] [id number] [place] [address] Oct, Chronic pain G89.29 [place] [address] [address] 18 Oct, 2018 Diabetes E11.9 [place] [address] [address] [place] [id number] [place] [address] Oct, Bipolar I disorder, most rec ent episode (or current) mixed, moderate F31.62 and Mild cognitive impairment G31.84 [place] [address] [address] [place] [id number] [place] [address] Oct, Bipolar I disorder, most rec ent episode (or current) mixed, moderate F31.62 and Mild cognitive impairment G31.84 [place] [address] [address] [place] [id number] [place] [address] Sep, Bipolar I disorder, most rec ent episode (or current) mixed, moderate F31.62 and Mild cognitive impairment G31.84 [place] [address] [address] [place] [id number] [place] [address] Sep, [facility] [address] [address] [facility] [id number] [address] [place] [address] Sep, Diabetes E11.9 ; Hypoxia R09 .02 ; Hyperglycemia R73.9 ; Therapeutic drug monitoring Z51.81 ; BMI 50.0-59.9, adult Z68.43 and Skin cancer C44.90 [place] [address] [address] [place] [id number] [place] [address] Sep, Chronic pain G89.29 [place] [address] [address] [place] [id number] [place] [address] Sep, Bipolar I disorder, most rec ent episode (or current) mixed, moderate F31.62 [place] [address] [address] [place] [id number] [place] [address] Sep, [place] [address] [address] [place] [id number] [place] [address] Sep, [place] [address] [address] [facility] [id number] [address] [place] [address] Aug, Chronic pain G89.29 [place] [address] [address] [facility] [id number] [address] [place] [address] Aug, Bipolar I disorder, most rec ent episode (or current) mixed, moderate F31.62 [place] [address] [address] [place] [id number] [place] [address] Aug, Bipolar I disorder, most rec ent episode (or current) mixed, moderate F31.62 and Mild cognitive impairment G31.84 [place] [address] [address] [facility] [id number] [address] [place] [address] Jul, [place] [address] [address] [place] [id number] [place] [address] Jul, Chronic pain G89.29 [place] [address] [facility] [id number] [address] [place] [address] Jul, Bipolar I disorder, most rec ent episode (or current) mixed, moderate F31.62 and Mild cognitive impairment G31.84 [place] [address] [address] [facility] [id number] [address] [place] [address] Jul, Bipolar I disorder, most rec ent episode (or current) mixed, moderate F31.62 and MCI (mild cognitive impairment) G31.84 [place] [address] [address] [facility] [id number] [address] [place] [address] Jul, [facility] [address] [facility] [address] [facility] [id number] [address] [place] [address] Jul, [place] [address] [address] [facility] [id number] [address] [place] [address] Jul, Bipolar I disorder, most rec ent episode (or current) mixed, moderate F31.62 [place] [address] [facility] [id number] [address] [place] [address] Jul, Chronic pain G89.29 [place] [address] [address] [facility] [id number] [address] [place] [address] Jun, Bipolar I disorder, most rec ent episode (or current) mixed, moderate F31.62 [place] [address] [address] [facility] [id number] [address] [place] [address] Jun, Pre-procedure lab exam Z01.8 12 [place] [address] [address] [place] [id number] [place] [address] Jun, [facility] [address] [id number] [place] [address] [id number] Jun, [place] [address] [facility] [id number] [address] [place] [address] Jun, [place] [address] [address] [place] [id number] [address] [place] [address] Jun, Forgetfulness R68.89 ; Pre-s yncope R55 ; Localized edema R60.0 ; Other iron deficiency anemia D50.8 and BMI 50.0-59.9, adult Z68.43 [facility] [address] [address] [facility] [id number] [address] [place] [address] Jun, Chronic pain G89.29 [facility] [address] [facility] [address] [facility] [id number] [address] [place] [address] Jun, Chronic pain G89.29 [facility] [address] [facility] [address] [facility] [id number] [address] [place] [address] Jun, Bipolar I disorder, most rec ent episode (or current) mixed, moderate F31.62 [facility] [address] [facility] [address] [facility] [id number] [address] [place] [address] May, Chronic pain G89.29 [facility] [address] [facility] [address] [facility] [id number] [address] [place] [address] Apr, [facility] [address] [place] [id number] [address] [place] [address] Apr, Chronic pain G89.29 [facility] [address] [place] [id number] [address] [place] [address] Apr, Primary osteoarthritis of ri ght knee M17.11 [facility] [address] [place] [id number] [address] [place] [address] Mar, [facility] [address] [facility] [address] [facility] [id number] [address] [place] [address] Mar, BMI 50.0-59.9, adult Z68.43 and Bipolar disorder, in partial remission, most recent episode depressed F31.75 [facility] [address] [facility] [address] [facility] [id number] [address] [place] [address] Mar, Diabetes E11.9 ; Pure hyperc holesterolemia E78.00 ; Essential hypertension I10 ; Nausea with vomiting, unspecified R11.2 and Headache, unspecified headache type R51 [facility] [address] [facility] [address] [facility] [id number] [address] [place] [address] Mar, Bipolar I disorder, most rec ent episode (or current) mixed, moderate F31.62 [facility] [address] [facility] [address] [facility] [id number] [address] [place] [address] 16 Mar, 2018 Bipolar I disorder, most rec ent episode (or current) mixed, moderate F31.62 [facility] [address] [facility] [address] [facility] [id number] [address] [place] [address] Mar, Chronic pain G89.29 [facility] [address] [facility] [address] [facility] [id number] [address] [place] [address] Mar, Bipolar I disorder, most rec ent episode (or current) mixed, moderate F31.62 [facility] [address] [facility] [address] [facility] [id number] [address] [place] [address] Feb, Bipolar I disorder, most rec ent episode (or current) mixed, moderate F31.62 [facility] [address] [facility] [address] [facility] [id number] [address] [place] [address] Feb, Chronic pain G89.29 [facility] [address] [place] [id number] [address] [place] [address] Feb, Decubitus ulcer of right josselin t, stage 3 L89.893 and BMI 50.0-59.9, adult Z68.43 [facility] [address] [facility] [address] [facility] [id number] [address] [place] [address] Feb, Bipolar I disorder, most rec ent episode (or current) mixed, moderate F31.62 [facility] [address] [facility] [address] [facility] [id number] [address] [place] [address] Feb, [facility] [address] [facility] [address] [facility] [id number] [address] [place] [address] January, [facility] [address] [facility] [address] [facility] [id number] [address] [place] [address] January, Chronic pain G89.29 [facility] [address] [facility] [address] [facility] [id number] [address] [place] [address] January, Bipolar I disorder, most rec ent episode (or current) mixed, moderate F31.62 [place] [address] [place] [id number] [address] [place] [address] January, Bipolar I disorder, most rec ent episode (or current) mixed, moderate F31.62 [place] [address] [place] [id number] [address] [place] [address] Dec, Bipolar I disorder, most rec ent episode (or current) mixed, moderate F31.62 and BMI 50.0-59.9, adult Z68.43 [place] [address] [address] Dec, Bipolar I disorder, most rec ent episode (or current) mixed, moderate F31.62 [place] [address] [address] Dec, Chronic pain G89.29 [place] [address] [place] [id number] [place] [address] Dec, DM neuro manif type II E11.4 9 ; Right flank pain R10.9 ; 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 ; Encounter for medication monitoring Z51.81 and BMI 50.0-59.9, adult Z68.43 [place] [address] [address] Dec, Bipolar I disorder, most rec ent episode (or current) mixed, moderate F31.62 [place] [address] [place] [id number] [address] [place] [address] Nov, Bipolar I disorder, most rec ent episode (or current) mixed, moderate F31.62 [place] [address] [place] [id number] [address] [place] [address] Nov, Chronic pain G89.29 [place] [address] [place] [id number] [place] [address] Nov, Bipolar I disorder, most rec ent episode (or current) mixed, moderate F31.62 [place] [address] [place] [id number] [place] [address] Nov, Hypokalemia E87.6 [place] [address] [place] [id number] [place] [address] Nov, Bipolar I disorder, most rec ent episode (or current) mixed, moderate F31.62 [place] [address] [place] [id number] [place] [address] Oct, Chronic pain G89.29 [place] [address] [place] [id number] [place] [address] Oct, BMI 50.0-59.9, adult Z68.43 and Bipolar I disorder, most recent episode (or current) mixed, moderate F31.62 [place] [address] [place] [id number] [place] [address] Oct, Bipolar I disorder, most rec ent episode (or current) mixed, moderate F31.62 [place] [address] [address] Oct, [place] [address] [address] Oct, Hypokalemia E87.6 [place] [address] [place] [id number] [place] [address] Oct, DM neuro manif type II E11.4 9 [place] [address] [address] Oct, Bipolar I disorder, most rec ent episode (or current) mixed, moderate F31.62 [place] [address] [place] [id number] [place] [address] Oct, Bipolar I disorder, most rec ent episode (or current) mixed, moderate F31.62 [place] [address] [place] [id number] [place] [address] 14 Oct, 2017 Hyperkalemia E87.5 ; Falling R29.6 ; BMI 50.0-59.9, adult Z68.43 and Acute left ankle pain M25.572 [place] [id number] [place] [address] 08 Oct, 2017 DM neuro manif type II E11.4 9 [facility] [address] [place] [id number] [address] [place] [address] Oct, [facility] [address] [place] [id number] [place] [address] Sep, Chronic pain G89.29 [place] [address] [place] [id number] [address] [place] [address] Sep, [place] [address] [place] [id number] [place] [address] Sep, Bilateral primary osteoarthr itis of knee M17.0 [place] [address] [address] Sep, Generalized edema R60.1 [place] [address] [address] 16 Sep, 2017 Bipolar I disorder, most rec ent episode (or current) mixed, moderate F31.62 [place] [address] [address] 15 Sep, 2017 Hypoxia R09.02 ; Other hyper volemia E87.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 ; Anemia of chronic illness D63.8 and BMI 50.0- 59.9, adult Z68.43 [place] [address] [address] Sep, [place] [address] [address] Sep, Bipolar I disorder, most rec ent episode (or current) mixed, moderate F31.62 [place] [address] [place] [address] Aug, Chronic pain G89.29 [facility] [address] [address] [facility] [id number] [address] [place] [address] Aug, Generalized edema R60.1 [facility] [address] [address] [facility] [id number] [address] [place] [address] 18 Aug, 2017 [facility] [address] [place] [id number] [address] [place] [address] 18 Aug, 2017 [facility] [address] [address] [facility] [id number] [address] [place] [address] 14 Aug, 2017 Bipolar I disorder, most rec ent episode (or current) mixed, moderate F31.62 [facility] [address] [place] [id number] [address] [place] [address] 07 Aug, 2017 Bipolar I disorder, most rec ent episode (or current) mixed, moderate F31.62 [place] [address] [place] [id number] [address] [place] [phone] 04 Aug, 2017 Chronic pain G89.29 [facility] [address] [facility] [facility] [id number] [address] [place] [phone] 30 Jul, 2017 Bipolar I disorder, most rec ent episode (or current) mixed, moderate F31.62 [facility] [address] [facility] [id number] [address] [place] [phone] Jul, Bipolar I disorder, most rec ent episode (or current) mixed, moderate F31.62 and BMI 60.0-69.9, adult Z68.44 [facility] [address] [facility] [facility] [id number] [address] [place] [phone] 16 Jul, 2017 Bipolar I disorder, most rec ent episode (or current) mixed, moderate F31.62 [facility] [address] [facility] [facility] [id number] [address] [place] [phone] 06 Jul, 2017 Chronic pain G89.29 [facility] [address] [place] [id number] [address] [place] [id number] Jul, Bipolar I disorder, most rec ent episode (or current) mixed, moderate F31.62 [facility] [address] [facility] [id number] [address] [place] [phone] Jun, Polyneuropathy associated wi th underlying disease G63 and Diabetes E11.9 [facility] [address] [facility] [facility] [id number] [address] [place] [phone] 16 Jun, 2017 Bipolar I disorder, most rec ent episode (or current) mixed, moderate F31.62 [facility] [address] [facility] [facility] [id number] [address] [place] [address] Jun, Chronic pain G89.29 [facility] [address] [facility] [id number] [address] [place] [address] May, Bipolar I disorder, most rec ent episode (or current) mixed, moderate F31.62 [place] [address] [place] [id number] [address] [place] [address] May, Bipolar I disorder, most rec ent episode (or current) mixed, moderate F31.62 [facility] [address] [facility] [id number] [address] [place] [address] 20 May, 2017 Diabetic polyneuropathy asso ciated with type 2 diabetes mellitus E11.42 [facility] [address] [facility] [id number] [address] [place] [address] 18 May, 2017 Bipolar I disorder, most rec ent episode (or current) mixed, moderate F31.62 [facility] [address] [facility] [id number] [address] [place] [address] 13 May, 2017 Bipolar I disorder, most rec ent episode (or current) mixed, moderate F31.62 [facility] [address] [address] [facility] [id number] [address] [place] [address] May, Chronic pain G89.29 [facility] [address] [facility] [id number] [address] [place] [address] Apr, Bipolar I disorder, most rec ent episode (or current) mixed, moderate F31.62 [facility] [address] [id number] [address] [place] [address] Apr, [facility] [address] [id number] [address] [place] [address] Apr, Chronic pain G89.29 and DM n euro manif type II E11.49 [facility] [address] [id number] [address] [place] [address] Apr, [facility] [address] [id number] [address] [place] [address] Apr, Bipolar I disorder, most rec ent episode (or current) mixed, moderate F31.62 [facility] [address] [address] [facility] [id number] [address] [place] [address] Apr, Chronic pain G89.29 [facility] [address] [facility] [id number] [address] [place] [address] Apr, Iliotibial band syndrome, le ft M76.32 [facility] [address] [facility] [id number] [address] [place] [address] Apr, Bipolar I disorder, most rec ent episode (or current) mixed, moderate F31.62 [facility] [address] [facility] [id number] [address] [place] [address] Mar, Bipolar I disorder, most rec ent episode (or current) mixed, moderate F31.62 [facility] [address] [facility] [id number] [address] [place] [address] Mar, Bipolar I disorder, most rec ent episode (or current) mixed, moderate F31.62 [facility] [address] [facility] [id number] [address] [place] [address] Mar, [facility] [address] [facility] [id number] [address] [place] [address] Mar, Bipolar I disorder, most rec ent episode (or current) mixed, moderate F31.62 [facility] [address] [facility] [id number] [address] [place] [address] Mar, Chronic pain G89.29 [facility] [address] [id number] [address] [place] [address] Mar, Bipolar I disorder, most rec ent episode (or current) mixed, moderate F31.62 [facility] [address] [facility] [id number] [address] [place] [address] Mar, Bipolar I disorder, most rec ent episode (or current) mixed, moderate F31.62 [facility] [address] [id number] [address] [place] [address] Mar, Acute pain of left knee M25. 562 ; Left hip pain M25.552 ; Generalized edema R60.1 and Tongue swelling R22.0 [facility] [address] [facility] [id number] [address] [place] [address] Mar, [facility] [address] [facility] [id number] [address] [place] [address] Feb, Chronic pain G89.29 [facility] [address] [facility] [id number] [address] [place] [address] Feb, Diabetes E11.9 [facility] [address] [facility] [id number] [address] [place] [address] January, Chronic pain G89.29 [facility] [address] [facility] [id number] [address] [place] [address] January, [facility] [address] [facility] [id number] [address] [place] [address] January, Bipolar I disorder, most rec ent episode (or current) mixed, moderate F31.62 [facility] [address] [facility] [id number] [address] [place] [address] Dec, Bipolar I disorder, most rec ent episode (or current) mixed, moderate F31.62 [facility] [address] [facility] [id number] [address] [place] [address] 24 Apr, 2017 Chronic pain G89.29 [facility] [address] [id number] [address] [place] [address] Dec, Bipolar I disorder, most rec ent episode (or current) mixed, moderate F31.62 [facility] [address] [facility] [id number] [address] [place] [address] Dec, Diabetes E11.9 ; Essential h ypertension I10 ; Chronic pain G89.29 and Morbid obesity E66.01 [facility] [address] [facility] [id number] [address] [place] [address] Dec, [facility] [address] [facility] [id number] [address] [place] [address] Dec, Bipolar I disorder, most rec ent episode (or current) mixed, moderate F31.62 [facility] [address] [facility] [id number] [address] [place] [address] Dec, Bipolar I disorder, most rec ent episode (or current) mixed, moderate F31.62 [facility] [address] [facility] [id number] [address] [place] [address] Nov, Chronic pain G89.29 [facility] [address] [facility] [id number] [address] [place] [address] Nov, Bipolar I disorder, most rec ent episode (or current) mixed, moderate F31.62 [facility] [address] [facility] [id number] [address] [place] [address] Nov, [facility] [address] [facility] [id number] [address] [place] [address] Nov, Bipolar I disorder, most rec ent episode (or current) mixed, moderate F31.62 [facility] [address] [facility] [id number] [address] [place] [address] Nov, Bipolar I disorder, most rec ent episode (or current) mixed, moderate F31.62 [facility] [address] [facility] [id number] [address] [place] [address] Nov, [facility] [address] [id number] [address] [place] [address] Nov, [facility] [address] [id number] [address] [place] [address] Nov, [facility] [address] [id number] [address] [place] [address] Oct, Chronic pain G89.29 [facility] [address] [id number] [address] [place] [address] Oct, Bipolar I disorder, most rec ent episode (or current) mixed, moderate F31.62 [facility] [address] [id number] [address] [place] [address] Oct, [facility] [address] [facility] [id number] [address] [place] [address] Oct, Chronic pain G89.29 ; Diabet es E11.9 ; Anxiety F41.9 and 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 [facility] [address] [id number] [address] [place] [address] Oct, [facility] [address] [facility] [id number] [address] [place] [address] Oct, Diabetes E11.9 [facility] [address] [id number] [address] [place] [address] Oct, Bipolar I disorder, most rec ent episode (or current) mixed, moderate F31.62 [facility] [address] [id number] [address] [place] [address] Sep, Chronic pain G89.29 [facility] [address] [facility] [id number] [address] [place] [address] Sep, Chronic pain G89.29 [facility] [address] [facility] [id number] [address] [place] [address] Aug, Chronic pain G89.29 [facility] [address] [facility] [id number] [address] [place] [address] Jul, [facility] [address] [place] [id number] [address] [place] [address] Jul, Diabetes E11.9 [facility] [address] [place] [id number] [address] [place] [address] Jul, Chronic pain G89.29 [place] [address] [place] [id number] [address] [place] [address] Jul, Bipolar I disorder, most rec ent episode (or current) mixed, moderate F31.62 [place] [address] [place] [id number] [address] [place] [address] Jun, Bipolar I disorder, most rec ent episode (or current) mixed, moderate F31.62 [place] [address] [place] [id number] [address] [place] [address] Jun, [place] [address] [place] [id number] [address] [place] [address] Jun, Bipolar I disorder, most rec ent episode (or current) mixed, moderate F31.62 [place] [address] [place] [id number] [address] [place] [address] May, Insomnia, unspecified type G 47.00 [place] [address] [place] [id number] [address] [place] [address] May, Bipolar I disorder, most rec ent episode (or current) mixed, moderate F31.62 [place] [address] [facility] [facility] [id number] [address] [place] [address] 14 May, 2016 [place] [address] [place] [id number] [address] [place] [address] May, Bipolar I disorder, most rec ent episode (or current) mixed, moderate F31.62 [place] [address] [place] [id number] [address] [place] [address] May, Diabetes E11.9 and Essential hypertension I10 [facility] [address] [id number] [address] [place] [address] Apr, Chronic pain G89.29 [facility] [address] [facility] [id number] [address] [place] [address] Apr, Bipolar I disorder, most rec ent episode (or current) mixed, moderate F31.62 [place] [address] [facility] [facility] [id number] [address] [place] [address] Apr, [place] [address] [facility] [facility] [id number] [address] [place] [address] Apr, [place] [address] [facility] [facility] [id number] [address] [place] [address] Mar, Chronic pain G89.29 ; Headac he, unspecified headache type R51 ; Neuropathy G62.9 ; Pain of right hip joint M25.551 and Essential hypertension I10 [place] [address] [facility] [facility] [id number] [address] [place] [address] Mar, Chronic pain G89.29 [place] [id number] [facility]AM[address] [facility] [id number] [address] [place] [address] Mar, Bipolar I disorder, most rec ent episode (or current) mixed, moderate F31.62 [place] [address] [facility] [facility] [id number] [address] [place] [address] Feb, Bipolar I disorder, most rec ent episode (or current) mixed, moderate F31.62 and Insomnia, unspecified type G47.00 [place] [address] [facility] [facility] [id number] [address] [place] [address] Feb, Chronic pain G89.29 [place] [address] [facility] [facility] [id number] [address] [place] [address] Feb, Bipolar I disorder, most rec ent episode (or current) mixed, moderate F31.62 [place] [address] [facility] [facility] [id number] [address] [place] [address] January, Bipolar I disorder, most rec ent episode (or current) mixed, moderate F31.62 [facility] [address] [id number] [address] [place] [address] January, Chronic pain G89.29 [facility] [address] [facility] [id number] [address] [place] [address] January, Chronic pain G89.29 and Esse ntial hypertension I10 [facility] [address] [id number] [address] [place] [address] January, Bipolar I disorder, most rec ent episode (or current) mixed, moderate F31.62 [facility] [address] [id number] [address] [place] [address] Dec, [facility] [address] [facility] [id number] [address] [place] [address] Dec, [facility] [address] [facility] [id number] [address] [place] [address] Dec, [facility] [address] [facility] [id number] [address] [place] [address] Dec, [facility] [address] [facility] [id number] [address] [place] [address] Nov, Reactive airway disease J45. 909 [facility] [address] [place] [id number] [address] [place] [address] Nov, [facility] [address] [facility] [id number] [address] [place] [address] Nov, [facility] [address] [facility] [id number] [address] [place] [address] Nov, [facility] [address] [facility] [id number] [address] [place] [address] Nov, [facility] [address] [facility] [id number] [address] [place] [address] Nov, Onychomycosis B35.1 ; Hammer toe M20.40 ; [place] or callus L84 and DM neuro manif type II E11.49 [facility] [address] [place] [id number] [address] [place] [address] Nov, Chronic pain G89.29 ; Leukoc ytosis D72.829 and Diabetes E11.9 [facility] [address] [facility] [id number] [address] [place] [address] Nov, [place] [address] [place] [id number] [address] [place] [address] Oct, Bronchitis J40 [facility] [address] [place] [id number] [address] [place] [address] Oct, [place] [address] [address] Oct, [place] [address] [address] Oct, Mastoiditis, unspecified lat erality H70.90 and Type 2 diabetes mellitus with complication E11.8 [place] [address] [place] [id number] [address] [place] [address] Sep, [place] [address] [address] Sep, Dysuria R30.0 ; Cough R05 ; Benign prostatic hyperplasia with lower urinary tract symptoms, unspecified morphology N40.1 ; Hypokalemia E87.6 and Eustachian tube dysfunction, unspecified laterality H69.80 [place] [address] [place] [id number] [address] [place] [address] Sep, Moderate mixed bipolar I dis order F31.62 [place] [address] [address] Sep, Hypokalemia E87.6 [place] [address] [place] [id number] [address] [place] [address] Sep, [place] [address] [address] Sep, Upper respiratory tract infe ction, unspecified type J06.9 [facility] [address] [id number] [address] [place] [address] Aug, [facility] [address] [id number] [address] [place] [address] Aug, Dysuria R30.0 [facility] [address] [id number] [address] [place] [address] Aug, [facility] [address] [id number] [address] [place] [address] Jul, [facility] [address] [id number] [address] [place] [address] Jul, [facility] [address] [id number] [address] [place] [address] Jul, [facility] [address] [id number] [address] [place] [address] Jul, [facility] [address] [id number] [address] [place] [address] Jun, [facility] [address] [id number] [address] [place] [address] Jun, [facility] [address] [id number] [address] [place] [address] Jun, [facility] [address] [id number] [address] [place] [address] May, [facility] [address] [id number] [address] [place] [address] May, Bipolar I disorder, most rec ent episode (or current) mixed, moderate 296.62 [facility] [address] [id number] [address] [place] [address] 16 May, 2015 [facility] [address] [id number] [address] [place] [address] May, Bipolar I disorder, most rec ent episode (or current) mixed, moderate 296.62 and Major depressive disorder, recurrent episode, severe, specified as with psychotic behavior 296.34 [facility] [address] [address] [facility] [id number] [address] [place] [address] May, Bipolar I disorder, most rec ent episode (or current) mixed, moderate 296.62 [facility] [address] [facility] [id number] [address] [place] [address] May, [facility] [address] [facility] [id number] [address] [place] [address] Apr, [facility] [address] [facility] [id number] [address] [place] [address] Apr, [facility] [address] [place] [id number] [address] [place] [address] Apr, Unspecified disorder of kidn ey and ureter 593.9 and Diabetes mellitus type 2, uncontrolled 250.02 [facility] [address] [place] [id number] [address] [place] [address] Apr, [facility] [address] [facility] [id number] [address] [place] [address] Apr, [facility] [address] [place] [id number] [address] [place] [address] Apr, [facility] [address] [facility] [id number] [address] [place] [address] Apr, [facility] [address] [place] [id number] [address] [place] [address] Apr, Diabetes mellitus type II, u ncontrolled 250.02 [facility] [address] [facility] [id number] [address] [place] [address] Apr, [facility] [address] [facility] [id number] [address] [place] [address] Mar, [facility] [address] [facility] [id number] [address] [place] [address] Mar, [facility] [address] [facility] [id number] [address] [place] [address] Mar, [facility] [address] [place] [id number] [address] [place] [id number] Mar, Major depressive disorder, r ecurrent episode, severe, specified as with psychotic behavior 296.34 and Bipolar I disorder, most recent episode (or current) mixed, moderate 296.62 [facility] [address] [place] [id number] [address] [place] [id number] Mar, Diabetes 250.00 ; Anuria 788 .5 ; Nausea and vomiting 787.01 and Diarrhea 787.91 [facility] [address] [place] [id number] [address] [place] [phone] Mar, Diabetes 250.00 [facility] [address] [place] [id number] [address] [place] [id number] Mar, [facility] [address] [place] [id number] [address] [place] [id number] Mar, Diabetes 250.00 [facility] [address] [facility] [address] [facility] [id number] [address] [place] [phone] Mar, [facility] [address] [place] [id number] [address] [place] [phone] Mar, [facility] [address] [place] [id number] [address] [place] [id number] Mar, [facility] [address] [place] [id number] [address] [place] [phone] Mar, [facility] [address] [place] [id number] [address] [place] [id number] Mar, Bipolar I disorder, most rec ent episode (or current) mixed, moderate 296.62 and Major depressive disorder, recurrent episode, severe, specified as with psychotic behavior 296.34 [facility] [address] [place] [id number] [address] [place] [phone] Mar, Magnesium deficiency 275.2 ; Hypokalemia 276.8 ; Nausea & vomiting 787.01 and Diabetes mellitus type 2, uncontrolled 250.02 [place] [address] [id number] Feb, [place] [address] [address] Feb, Bipolar I disorder, most rec ent episode (or current) mixed, moderate 296.[address] [address] Feb, Nausea and vomiting 787.01 ; Left elbow pain 719.42 ; Anuria 788.5 and Diabetes 250.[address] [id number] Feb, [address] [id number] Feb, Hypopotassemia 276.8 and Hyp okalemia 276.[address] [address] Feb, Hypopotassemia 276.8 and Hyp okalemia 276.[address] [address] Feb, Seborrheic keratoses 702.[address] [address] Feb, Hypopotassemia 276.8 and Low magnesium levels 275.2 [place] [address] [id number] January, [address] [address] January, [place] [address] [id number] January, [place] [address] [id number] January, Scalp lesion 709.9 [facility] [address] [id number] [address] [place] [id number] January, [facility] [address] [id number] [address] [place] [phone] Dec, Tear of medial cartilage or meniscus of knee, current 836.0 and 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 [facility] [address] [id number] [address] [place] [id number] Dec, [facility] [address] [id number] [address] [place] [id number] Dec, [facility] [address] [id number] [address] [place] [address] [address] Dec, Squamous cell carcinoma, 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 [facility] [address] [id number] [address] [place] [address] Dec, [facility] [address] [id number] [address] [place] [address] Dec, [facility] [address] [id number] [address] [place] [address] Nov, [facility] [address] [id number] [address] [place] [address] Nov, [facility] [address] [id number] [address] [place] [address] Nov, [facility] [address] [id number] [address] [place] [address] Nov, [facility] [address] [id number] [address] [place] [address] Nov, [facility] [address] [id number] [address] [place] [address] Nov, [facility] [address] [id number] [address] [place] [address] Nov, [facility] [address] [id number] [address] [place] [address], [place] [address] Nov, 2014 [facility] [address] [id number] [address] [place] [address], [place] [address] Nov, [facility] [address] [id number] [address] [place] [address], [place] [address] Nov, 2014 [facility] [address] [id number] [address] [place] [address], [place] [address] Nov, 2014 [facility] [address] [id number] [address] [place] [address], [place] [address] Nov, [facility] [address] [id number] [address] [place] [address], [place] [address] Oct, 2014 [facility] [address] [id number] [address] [place] [address], [place] [address] Oct, 2014 [facility] [address] [id number] [address] [place] [address], [place] [address] Oct, 2014 [facility] [address] [id number] [address] [place] [address], [place] [address] Oct, 2014 [facility] [address] [id number] [address] [place] [address] Oct, 2014 [facility] [address] [id number] [address] [place] [address] Oct, 2014 [facility] [address] [id number] [address] [place] [address] Oct, 2014 [facility] [address] [id number] [address] [place] [address], [place] [address] Oct, 2014 [facility] [address] [id number] [address] [place] [address] Oct, 2014 [facility] [address] [id number] [address] [place] [address] Sep, [facility] [address] [id number] [address] [place] [address] Sep, [facility] [address] [id number] [address] [place] [address], [place] [address] Sep, [facility] [address] [id number] [address] [place] [address], [place] [address] Sep, [facility] [address] [id number] [address] [place] [address], [place] [address] Sep, [facility] [address] [id number] [address] [place] [address], [place] [address] Sep, [facility] [address] [id number] [address] [place] [address], [place] [address] Sep, [facility] [address] [id number] [address] [place] [address], [place] [address] Sep, [facility] [address] [id number] [address] [place] [address], [place] [address] Sep, [facility] [address] [id number] [address] [place] [address], [place] [address] Sep, [facility] [address] [id number] [address] [place] [address], [place] [address] Sep, [facility] [address] [id number] [address] [place] [address], [place] [address] Sep, [facility] [address] [id number] [address] [place] [address], [place] [address] Sep, [facility] [address] [id number] [address] [place] [address], [place] [address] Sep, [facility] [address] [id number] [address] [place] [address], [place] [address] Sep, [facility] [address] [id number] [address] [place] [address], [place] [address] Sep, [facility] [address] [id number] [address] [place] [address], [place] [address] Aug, [facility] [address] [id number] [facility] [place] [address] Aug, [facility] [address] [id number] [facility] [place] [address] Aug, [facility] [address] [id number] [facility] [place] [address] Aug, [facility] [address] [id number] [facility] [place] [address] Aug, [facility] [address] [id number] [facility] [place] [address] Aug, [facility] [address] [id number] [facility] [place] [address] Aug, [facility] [address] [id number] [address] [place] [address], [place] [address] Aug, [facility] [address] [id number] [address] [place] [address], [place] [address] Aug, [facility] [address] [id number] [address] [place] [address], [place] [address] Aug, [facility] [address] [id number] [address] [place] [address], [place] [address] Aug, [facility] [address] [place] [id number] Aug, [facility] [address] [id number] [address] [place] [address], [place] [address] Aug, [facility] [address] [id number] [address] [place] [address], [place] [address] Aug, [facility] [address] [id number] [address] [place] [address], [place] [address] Aug, [facility] [address] [id number] [address] [place] [address], [place] [address] Aug, [facility] [address] [id number] [address] [place] [address], [place] [address] Aug, [facility] [address] [id number] [address] [place] [address], [place] [address] Aug, [facility] [address] [id number] [address] [place] [address], [place] [address] Aug, [facility] [address] [id number] [address] [place] [address], [place] [address] Aug, [facility] [address] [id number] [address] [place] [address], [place] [address] Aug, [facility] [address] [id number] [address] [place] [address], [place] [address] Aug, [facility] [address] [id number] [address] [place] [address], [place] [address] Aug, [facility] [address] [id number] [address] [place] [address], [place] [address] Aug, [facility] [address] [id number] [address] [place] [address], [place] [address] Aug, [facility] [address] [id number] [address] [place] [address], [place] [address] Aug, [facility] [address] [id number] [address] [place] [address], [place] [address] Aug, [facility] [address] [id number] [address] [place] [address], [place] [address] Aug, [facility] [address] [id number] [address] [place] [address], [place] [address] Aug, [facility] [address] [id number] [address] [place] [address], [place] [address] Aug, [facility] [address] [id number] [address] [place] [address], [place] [address] Jul, [facility] [address] [id number] [address] [place] [address], [place] [address] Jul, [facility] [address] [id number] [address] [place] [address] Jul, [facility] [address] [id number] [address] [place] [address], [place] [address] Jul, [facility] [address] [id number] [address] [place] [address] Jul, [facility] [address] [id number] [address] [place] [address], [place] [address] Jul, [facility] [address] [id number] [address] [place] [address] Jul, [facility] [address] [id number] [address] [place] [address], [place] [address] Jul, [facility] [address] [id number] [address] [place] [address], [place] [address] Jul, [facility] [address] [id number] [address] [place] [address] Jul, [facility] [address] [id number] [address] [place] [address], [place] [address] Jun, [facility] [address] [id number] [address] [place] [address] Jun, [facility] [address] [id number] [address] [place] [address] Jun, [facility] [address] [id number] [address] [place] [address] Jun, [facility] [address] [id number] [address] [place] [address] Jun, [facility] [address] [id number] [address] [place] [address] Jun, [facility] [address] [id number] [address] [place] [address] Jun, [facility] [address] [id number] [address] [place] [address] Jun, [facility] [address] [id number] [address] [place] [address], [place] [address] Jun, [facility] [address] [id number] [address] [place] [address], [place] [address] Jun, [facility] [address] [id number] [address] [place] [address], [place] [address] 29 May, 2013 [facility] [address] [id number] [address] [place] [address], [place] [address] 29 Sep, 2013 [facility] [address] [id number] [address] [place] [address], [place] [address] 26 May, 2013 [facility] [address] [id number] [address] [place] [address], [place] [address] 26 May, 2013 [facility] [address] [id number] [address] [place] [address], [place] [address] 17 May, 2013 [facility] [address] [id number] [address] [place] [address], [place] [address] 17 May, 2013 [facility] [address] [id number] [address] [place] [address], [place] [address] 15 May, 2013 [facility] [address] [id number] [address] [place] [address], [place] [address] 15 May, 2013 [facility] [address] [id number] [address] [place] [address], [place] [address] 15 May, 2013 [facility] [address] [id number] [address] [place] [address], [place] [address] 15 May, 2013 [facility] [address] [id number] [address] [place] [address], [place] [address] 10 Sep, 2013 [facility] [address] [id number] [address] [place] [address], [place] [address] 10 May, 2013 [facility] [address] [id number] [address] [place] [address], [place] [address] 09 May, 2013 [facility] [address] [id number] [address] [place] [address], [place] [address] May, [facility] [address] [id number] [facility] [place] [address] May, [facility] [address] [id number] [address] [place] [address], [place] [address] May, [facility] [address] [id number] [address] [place] [address], [place] [address] Apr, [facility] [address] [id number] [address] [place] [address], [place] [address] Apr, [facility] [address] [id number] [address] [place] [address], [place] [address] Apr, [facility] [address] [id number] [address] [place] [address], [place] [address] Apr, [facility] [address] [id number] [address] [place] [address], [place] [address] Apr, [facility] [address] [id number] [address] [place] [address], [place] [address] Apr, [facility] [address] [id number] [address] [place] [address], [place] [address] Apr, [facility] [address] [id number] [address] [place] [address], [place] [address] Apr, [facility] [address] [id number] [address] [place] [address], [place] [address] Apr, [facility] [address] [id number] [address] [place] [address], [place] [address] Apr, [facility] [address] [id number] [address] [place] [address], [place] [address] Apr, [facility] [address] [id number] [address] [place] [address], [place] [address] Apr, [facility] [address] [id number] [address] [place] [address], [place] [address] Apr, [facility] [address] [id number] [address] [place] [address], [place] [address] Apr, [facility] [address] [id number] [address] [place] [address], [place] [address] Apr, [facility] [address] [id number] [address] [place] [address], [place] [address] Mar, [facility] [address] [id number] [address] [place] [address], [place] [address] Mar, [facility] [address] [id number] [address] [place] [address], [place] [address] Mar, [facility] [address] [id number] [address] [place] [address], [place] [address] Mar, [facility] [address] [id number] [address] [place] [address], [place] [address] Mar, [facility] [address] [id number] [address] [place] [address], [place] [address] Mar, [facility] [address] [id number] [address] [place] [address], [place] [address] Mar, [facility] [address] [id number] [address] [place] [address], [place] [address] Mar, [facility] [address] [id number] [address] [place] [address], [place] [address] Mar, [facility] [address] [id number] [address] [place] [address], [place] [address] Mar, [facility] [address] [id number] [address] [place] [address], [place] [address] Mar, [facility] [address] [id number] [address] [place] [address], [place] [address] Mar, [facility] [address] [id number] [address] [place] [address], [place] [address] Mar, [facility] [address] [id number] [address] [place] [address], [place] [address] Mar, [facility] [address] [id number] [facility] [place] [address] Mar, 2013 [facility] [address] [id number] [facility] [place] [address] Mar, 2013 [facility] [address] [id number] [facility] [place] [address] Mar, [facility] [address] [id number] [facility] [place] [address] Mar, [facility] [address] [id number] [facility] [place] [address] Feb, [facility] [address] [id number] [address] [place] [address], [place] [address] Feb, [facility] [address] [id number] [address] [place] [address], [place] [address] Feb, [facility] [address] [id number] [address] [place] [address], [place] [address] Feb, [facility] [address] [id number] [address] [place] [address], [place] [address] Feb, [facility] [address] [id number] [address] [place] [address], [place] [address] Feb, [facility] [address] [id number] [address] [place] [address], [place] [address] Feb, [facility] [address] [id number] [address] [place] [address], [place] [address] Feb, [facility] [address] [id number] [address] [place] [address], [place] [address] Feb, [facility] [address] [id number] [address] [place] [address], [place] [address] Feb, [facility] [address] [id number] [address] [place] [address], [place] [address] Feb, [facility] [address] [id number] [address] [place] [address], [place] [address] Feb, [facility] [address] [id number] [facility] [place] [address] Feb, [facility] [address] [id number] [address] [place] [address], [place] [address] Feb, [facility] [address] [id number] [address] [place] [address], [place] [address] January, [facility] [address] [id number] [address] [place] [address], [place] [address] January, [facility] [address] [id number] [address] [place] [address], [place] [address] January, [facility] [address] [id number] [address] [place] [address], [place] [address] January, [facility] [address] [id number] [address] [place] [address], [place] [address] January, [facility] [address] [id number] [address] [place] [address], [place] [address] January, [facility] [address] [id number] [address] [place] [address], [place] [address] January, [facility] [address] [id number] [address] [place] [address], [place] [address] January, [facility] [address] [id number] [address] [place] [address], [place] [address] January, [facility] [address] [id number] [address] [place] [address], [place] [address] January, [facility] [address] [id number] [address] [place] [address], [place] [address] January, [facility] [address] [id number] [address] [place] [address], [place] [address] January, [facility] [address] [id number] [address] [place] [address], [place] [address] January, [facility] [address] [id number] [facility] [place] [address] January, [facility] [address] [id number] [address] [place] [address], [place] [address] Dec, [facility] [address] [id number] [address] [place] [address], [place] [address] Dec, [facility] [address] [id number] [address] [place] [address], [place] [address] Dec, [facility] [address] [id number] [address] [place] [address], [place] [address] Dec, [facility] [address] [id number] [address] [place] [address], [place] [address] Dec, [facility] [address] [id number] [address] [place] [address], [place] [address] Dec, [facility] [address] [id number] [address] [place] [address], [place] [address] Dec, [facility] [address] [id number] [address] [place] [address], [place] [address] Dec, [facility] [address] [id number] [address] [place] [address], [place] [address] Dec, [facility] [address] [id number] [address] [place] [address], [place] [address] Dec, [facility] [address] [id number] [address] [place] [address], [place] [address] Nov, [facility] [address] [id number] [address] [place] [address], [place] [address] Nov, [facility] [address] [id number] [address] [place] [address], [place] [address] Nov, [facility] [address] [id number] [address] [place] [address], [place] [address] Nov, [facility] [address] [id number] [address] [place] [address], [place] [address] Nov, [facility] [address] [id number] [address] [place] [address], [place] [address] 08 Nov, 2013 [facility] [address] [id number] [address] [place] [address], [place] [address] Nov, [facility] [address] [id number] [address] [place] [address], [place] [address] Nov, [facility] [address] [id number] [address] [place] [address], [place] [address] Nov, [facility] [address] [id number] [address] [place] [address], [place] [address] Nov, [facility] [address] [id number] [address] [place] [address], [place] [address] Oct, [facility] [address] [id number] [address] [place] [address], [place] [address] Oct, [facility] [address] [id number] [address] [place] [address], [place] [address] Oct, [facility] [address] [id number] [address] [place] [address], [place] [address] Oct, [facility] [address] [id number] [address] [place] [address], [place] [address] Oct, [facility] [address] [id number] [address] [place] [address], [place] [address] Oct, [facility] [address] [id number] [address] [place] [address], [place] [address] 14 Oct, 2013 [facility] [address] [id number] [address] [place] [address], [place] [address] Oct, [facility] [address] [id number] [address] [place] [address], [place] [address] Oct, [facility] [address] [id number] [address] [place] [address], [place] [address] Oct, [facility] [address] [id number] [address] [place] [address], [place] [address] 04 Oct, 2013 [facility] [address] [id number] [address] [place] [address], [place] [address] Oct, [facility] [address] [id number] [address] [place] [address], [place] [address] Oct, [facility] [address] [id number] [address] [place] [address], [place] [address] Oct, [facility] [address] [id number] [address] [place] [address], [place] [address] Sep, [facility] [address] [id number] [address] [place] [address], [place] [address] Sep, [facility] [address] [id number] [address] [place] [address], [place] [address] Sep, [facility] [address] [id number] [address] [place] [address], [place] [address] Sep, [facility] [address] [id number] [address] [place] [address], [place] [address] Sep, [facility] [address] [id number] [address] [place] [address], [place] [address] Sep, [facility] [address] [id number] [address] [place] [address], [place] [address] Sep, [facility] [address] [id number] [address] [place] [address], [place] [address] Sep, [facility] [address] [id number] [address] [place] [address], [place] [address] Sep, [facility] [address] [id number] [address] [place] [address], [place] [address] Sep, [facility] [address] [id number] [address] [place] [address], [place] [address] Aug, [facility] [address] [id number] [address] [place] [address] [address] Aug, [facility] [address] [id number] [address] [place] [address], [place] [address] Jul, [facility] [address] [id number] [address] [place] [address], [place] [address] Jul, [facility] [address] [id number] [address] [place] [address], [place] [address] Jul, [facility] [address] [id number] [address] [place] [address], [place] [address] Jul, [facility] [address] [id number] [address] [place] [address], [place] [address] Jul, [facility] [address] [id number] [address] [place] [address], [place] [address] Jul, [facility] [facility] [address] [id number] [address] [place] [address], [place] [address] Jul, [facility] [address] [id number] [address] [place] [address], [place] [address] Jul, [facility] [address] [id number] [address] [place] [address], [place] [address] Jul, [facility] [address] [id number] [address] [place] [address], [place] [address] Jul, [facility] [address] [id number] [address] [place] [address] Jul, [facility] [address] [id number] [address] [place] [address] Jul, [facility] [address] [id number] [address] [place] [address], [place] [address] Jul, [facility] [address] [id number] [address] [place] [address] Jul, [facility] [address] [id number] [address] [place] [address] Jul, [facility] [address] [id number] [address] [place] [address], [place] [address] 05 Jul, 2012 [facility] [address] [id number] [address] [place] [address], [place] [address] 05 Jul, 2012 [facility] [address] [id number] [address] [place] [address], [place] [address] Jul, 2012 [facility] [address] [id number] [address] [place] [address], [place] [address] Jul, 2012 [facility] [address] [id number] [address] [place] [address], [place] [address] Jun, 2012 [facility] [address] [id number] [address] [place] [address], [place] [address] Jun, 2012 [facility] [address] [id number] [address] [place] [address], [place] [address] Jun, 2012 [facility] [address] [id number] [address] [place] [address], [place] [address] Jun, 2012 [facility] [address] [id number] [address] [place] [address], [place] [address] Jun, 2012 [facility] [address] [id number] [address] [place] [address], [place] [address] Jun, 2012 [facility] [address] [id number] [address] [place] [address] Jun, 2012 [facility] [address] [id number] [address] [place] [address], [place] [address] Jun, 2012 [facility] [address] [id number] [address] [place] [address] Jun, [facility] [address] [id number] [address] [place] [address], [place] [address] Jun, [facility] [address] [id number] [address] [place] [address] Jun, [facility] [address] [id number] [address] [place] [address] May, [facility] [address] [id number] [address] [place] [address], [place] [address] 25 May, 2012 [facility] [address] [id number] [address] [place] [address], [place] [address] May, 2012 [facility] [address] [id number] [address] [place] [address], [place] [address] 17 May, 2012 [facility] [address] [id number] [address] [place] [address], [place] [address] 11 May, 2012 [facility] [address] [id number] [address] [place] [address], [place] [address] 10 May, 2012 [facility] [address] [id number] [address] [place] [address], [place] [address] May, [facility] [address] [id number] [address] [place] [address], [place] [address] 05 May, 2013 [facility] [address] [id number] [address] [place] [address], [place] [address] Apr, [facility] [address] [id number] [address] [place] [address], [place] [address] Apr, [facility] [address] [id number] [address] [place] [address], [place] [address] Apr, [facility] [address] [id number] [address] [place] [address], [place] [address] Apr, [facility] [address] [id number] [address] [place] [address], [place] [address] Apr, [facility] [address] [id number] [address] [place] [address], [place] [address] Mar, [facility] [address] [id number] [address] [place] [address], [place] [address] Mar, [facility] [address] [id number] [address] [place] [address], [place] [address] Mar, [facility] [address] [id number] [address] [place] [address], [place] [address] Mar, [facility] [address] [id number] [address] [place] [address], [place] [address] Mar, [facility] [address] [id number] [address] [place] [address], [place] [address] Mar, [facility] [address] [id number] [address] [place] [address], [place] [address] Mar, [facility] [address] [id number] [address] [place] [address], [place] [address] Mar, [facility] [address] [id number] [address] [place] [address], [place] [address] Feb, [facility] [address] [id number] [address] [place] [address], [place] [address] Feb, [facility] [address] [id number] [address] [place] [address], [place] [address] January, [facility] [address] [id number] [address] [place] [address], [place] [address] January, [facility] [address] [id number] [address] [place] [address], [place] [address] Dec, [facility] [address] [id number] [address] [place] [address], [place] [address] Dec, [facility] [address] [id number] [address] [place] [address], [place] [address] Nov, [facility] [address] [id number] [address] [place] [address], [place] [address] Nov, [facility] [address] [id number] [address] [place] [address], [place] [address] Nov, [facility] [address] [id number] [address] [place] [address], [place] [address] Nov, [facility] [address] [id number] [address] [place] [address], [place] [address] Oct, [facility] [address] [id number] [address] [place] [address], [place] [address] Oct, [facility] [address] [id number] [address] [place] [address], [place] [address] Oct, [facility] [address] [id number] [address] [place] [address], [place] [address] Oct, [facility] [address] [id number] [address] [place] [address], [place] [address] 16 Oct, 2012 [facility] [address] [id number] [address] [place] [address], [place] [address] 14 Oct, 2012 [facility] [address] [id number] [address] [place] [address], [place] [address] 08 Oct, 2012 [facility] [address] [id number] [address] [place] [address], [place] [address] 07 Oct, 2012 [facility] [address] [id number] [address] [place] [address], [place] [address] 03 Oct, 2012 [facility] [address] [id number] [address] [place] [address], [place] [address] Sep, [facility] [address] [id number] [address] [place] [address], [place] [address] Sep, [facility] [address] [id number] [address] [place] [address], [place] [address] Sep, [facility] [address] [id number] [address] [place] [address], [place] [address] Sep, [facility] [address] [id number] [address] [place] [address], [place] [address] Sep, [facility] [address] [id number] [address] [place] [address], [place] [address] Sep, [facility] [address] [id number] [address] [place] [address], [place] [address] Sep, [facility] [address] [id number] [address] [place] [address], [place] [address] Sep, [facility] [address] [id number] [address] [place] [address], [place] [address] Aug, [facility] [address] [id number] [address] [place] [address], [place] [address] Aug, [facility] [address] [id number] [address] [place] [address], [place] [address] Aug, [facility] [address] [id number] [address] [place] [address], [place] [address] Aug, [facility] [address] [id number] [address] [place] [address], [place] [address] Aug, [facility] [address] [id number] [address] [place] [address], [place] [address] Aug, [facility] [address] [id number] [address] [place] [address], [place] [address] Aug, [facility] [address] [id number] [address] [place] [address], [place] [address] Aug, [facility] [address] [id number] [address] [place] [address], [place] [address] Jul, [facility] [address] [id number] [address] [place] [address], [place] [address] Jul, [facility] [address] [id number] [address] [place] [address], [place] [address] Jul, [facility] [address] [id number] [address] [place] [address], [place] [address] Jul, [facility] [address] [id number] [address] [place] [address], [place] [address] Jul, [facility] [address] [id number] [address] [place] [address], [place] [address] Jul, [facility] [address] [id number] [address] [place] [address], [place] [address] Jun, [facility] [address] [id number] [address] [place] [address], [place] [address] 25 Jun, 2012 [facility] [address] [id number] [address] [place] [address], [place] [address] Jun, [facility] [address] [id number] [address] [place] [address], [place] [address] Jun, [facility] [address] [id number] [address] [place] [address], [place] [address] Jun, [facility] [address] [id number] [address] [place] [address], [place] [address] Jun, [facility] [address] [id number] [address] [place] [address], [place] [address] 19 Jun, 2012 [facility] [address] [id number] [address] [place] [address], [place] [address] 10 Jun, 2012 [facility] [address] [id number] [address] [place] [address], [place] [address] 10 Jun, 2012 [facility] [address] [id number] [address] [place] [address], [place] [address] 26 May, 2012 [facility] [address] [id number] [address] [place] [address], [place] [address] 24 May, 2012 [facility] [address] [id number] [address] [place] [address], [place] [address] 18 May, 2012 [facility] [address] [id number] [address] [place] [address], [place] [address] 30 Apr, 2012 [facility] [address] [id number] [address] [place] [address], [place] [address] 29 Apr, 2012 [facility] [address] [id number] [address] [place] [address], [place] [address] 18 Apr, 2012 [facility] [address] [id number] [address] [place] [address], [place] [address] 14 Apr, 2012 [facility] [address] [id number] [address] [place] [address], [place] [address] Apr, [facility] [address] [id number] [address] [place] [address], [place] [address] Apr, [facility] [address] [id number] [address] [place] [address], [place] [address] Mar, [facility] [address] [id number] [address] [place] [address], [place] [address] Mar, [facility] [address] [id number] [address] [place] [address], [place] [address] Mar, [facility] [address] [id number] [address] [place] [address], [place] [address] Mar, [facility] [address] [id number] [address] [place] [address], [place] [address] Feb, [facility] [address] [id number] [address] [place] [address], [place] [address] Feb, [facility] [address] [id number] [address] [place] [address], [place] [address] Feb, [facility] [address] [id number] [address] [place] [address], [place] [address] Feb, [facility] [address] [id number] [address] [place] [address], [place] [address] Feb, [facility] [address] [id number] [address] [place] [address], [place] [address] January, [facility] [address] [id number] [address] [place] [address], [place] [address] January, [facility] [address] [id number] [address] [place] [address], [place] [address] January, [facility] [address] [id number] [address] [place] [address], [place] [address] January, [facility] [address] [id number] [address] [place] [address], [place] [address] January, [facility] [address] [id number] [address] [place] [address], [place] [address] January, [facility] [address] [id number] [address] [place] [address], [place] [address] 24 Dec, 2011 [facility] [address] [id number] [address] [place] [address], [place] [address] 24 Dec, 2011 [facility] [address] [id number] [address] [place] [address], [place] [address] Dec, [facility] [address] [id number] [address] [place] [address], [place] [address] Dec, [facility] [address] [id number] [address] [place] [address], [place] [address] Dec, [facility] [address] [id number] [address] [place] [address], [place] [address] 27 Nov, 2011 [facility] [address] [id number] [address] [place] [address], [place] [address] 14 Nov, 2011 [facility] [address] [id number] [address] [place] [address], [place] [address] 12 Nov, 2011 [facility] [address] [id number] [address] [place] [address], [place] [address] 07 Nov, 2011 [facility] [address] [id number] [address] [place] [address], [place] [address] 29 Oct, 2011 [facility] [address] [id number] [address] [place] [address], [place] [address] 28 Oct, 2011 [facility] [address] [id number] [address] [place] [address], [place] [address] 24 Oct, 2011 [facility] [address] [id number] [address] [place] [address], [place] [address] 13 Oct, 2011 [facility] [address] [id number] [address] [place] [address], [place] [address] 08 Oct, 2011 [facility] [address] [id number] [address] [place] [address], [place] [address] Sep, [facility] [address] [id number] [address] [place] [address], [place] [address] Sep, [facility] [address] [id number] [address] [place] [address], [place] [address] Sep, [facility] [address] [id number] [address] [place] [address], [place] [address] Sep, [facility] [address] [id number] [address] [place] [address], [place] [address] Sep, [facility] [address] [id number] [address] [place] [address], [place] [address] Sep, [facility] [address] [id number] [address] [place] [address], [place] [address] Aug, [facility] [address] [id number] [address] [place] [address], [place] [address] Aug, [facility] [address] [id number] [address] [place] [address], [place] [address] Aug, [facility] [address] [id number] [address] [place] [address], [place] [address] Jul, [facility] [address] [id number] [address] [place] [address] Jul, [facility] [address] [id number] [address] [place] [address] Jul, [facility] [address] [id number] [address] [place] [address] Jul, [facility] [address] [id number] [address] [place] [address], [place] [address] Jun, [facility] [address] [id number] [address] [place] [address], [place] [address] Jun, [facility] [address] [id number] [address] [place] [address] Jun, [facility] [address] [id number] [address] [place] [address] 10 Jun, 2011 [facility] [address] [id number] [address] [place] [address], [place] [address] 10 Jun, 2011 [facility] [address] [id number] [address] [place] [address], [place] [address] 10 Jun, 2011 [facility] [address] [id number] [address] [place] [address], [place] [address] 11 Mar, 2011 [facility] [address] [id number] [address] [place] [address], [place] [address] 18 Dec, 2010 [facility] [address] [id number] [address] [place] [address], [place] [address] 11 Dec, 2010 [facility] [address] [id number] [address] [place] [address], [place] [address] 18 Nov, 2010 [facility] [address] [id number] [address] [place] [address], [place] [address] 16 Nov, 2010 [facility] [address] [id number] [address] [place] [address], [place] [address] 10 Sep, 2010 [facility] [address] [id number] [address] [place] [address], [place] [address] 31 Aug, 2010 [facility] [address] [id number] [address] [place] [address], [place] [address] 29 Aug, 2010 [facility] [address] [id number] [address] [place] [address], [place] [address] 29 Aug, 2010 [facility] [address] [id number] [address] [place] [address], [place] [address] 29 Aug, 2010 [facility] [address] [id number] [address] [place] [address], [place] [address] 27 Aug, 2010 [facility] [address] [id number] [address] [place] [address], [place] [address] 14 Aug, 2010 [facility] [address] [id number] [address] [place] [address], [place] [address] 08 Aug, 2010 [facility] [address] [id number] [address] [place] [address], [place] [address] 08 Aug, 2010 [facility] [address] [id number] [address] [place] [address], [place] [address] Aug, [facility] [address] [id number] [address] [place] [address], [place] [address] Aug, [facility] [address] [id number] [address] [place] [address], [place] [address] Aug, [facility] [address] [id number] [address] [place] [address], [place] [address] Aug, [facility] [address] [id number] [address] [place] [address], [place] [address] Jul, [facility] [address] [id number] [address] [place] [address], [place] [address] Jul, [facility] [address] [id number] [address] [place] [address], [place] [address] Jul, [facility] [address] [id number] [address] [place] [address], [place] [address] Jul, [facility] [address] [id number] [address] [place] [address], [place] [address] Jul, [facility] [address] [id number] [address] [place] [address], [place] [address] Jul, [facility] [address] [id number] [address] [place] [address], [place] [address] 24 Jun, 2010 [facility] [address] [id number] [address] [place] [address], [place] [address] Jun, [facility] [address] [id number] [address] [place] [address], [place] [address] Jun, [facility] [address] [id number] [address] [place] [address], [place] [address] Jun, [facility] [address] [id number] [address] [place] [address], [place] [address] Apr, [facility] [address] [id number] [address] [place] [address], [place] [address] Mar, [facility] [address] [id number] [address] [place] [address], [place] [address] Feb, [facility] [address] [id number] [address] [place] [address], [place] [address] January, [facility] [address] [id number] [address] [place] [address], [place] [address] 15 Dec, 2009 [facility] [address] [id number] [address] [place] [address], [place] [address] Nov, [facility] [address] [id number] [address] [place] [address], [place] [address] 31 Aug, 2009 [facility] [address] [id number] [address] [place] [address], [place] [address] Aug, [facility] [address] [id number] [address] [place] [address] Aug, [facility] [address] [id number] [address] [place] [address], [place] [address] Jul, [facility] [address] [id number] [address] [place] [address] Jul, [facility] [address] [id number] [address] [place] [address] Jul, [facility] [address] [id number] [address] [place] [address] 30 Jun, 2009 [facility] [address] [id number] [address] [place] [address], [place] [address] 29 Jun, 2009 [facility] [address] [id number] [address] [place] [address] Jun, [facility] [address] [id number] [address] [place] [address], [place] [address] Jun, [facility] [address] [id number] [address] [place] [address] Jun, [facility] [address] [facility] [facility] [id number] [address] [place] [address] Jun, [facility] [address] [facility] [id number] [address] [place] [address] Apr, [facility] [address] [address] [facility] [id number] [address] [place] [address] Apr, [facility] [address] [facility] [id number] [address] [place] [address] Feb, [facility] [address] [facility] [id number] [address] [place] [address] January, [facility] [address] [address] [facility] [id number] [address] [place] [address] Dec, IMMUNIZATIONS No Known Immunizations SOCIAL HISTORY [...] History inability to urinate 09/16/15 Hospitalization History [facility] health ea rly 2000's Hospitalization History hyperkalemia 10/2017 Hospitalization History fluid in lung
--- OUTSIDE RECORDS SUMMARY | 2020-03-01 17:08 | XMS REPORT ---
Author Michele Fuentes Organization [facility] Address [address] [place] [address] Care Team Providers Care Child Psychometrist Name Role Phone TOBY ROSELINE Unavailable PROBLEMS Type Condition ICD9-CM Code DST65-ID Code Onset Dates Condition S tatus SNOMED Code Problem Benign prostatic hyperplasia with lower urinary tract symptoms, unspecified morphology N40.1 Active 93175 6007 Problem Diabetes E11.9 Active 57859606 Problem DM neuro manif type II E11.49 Active 64654400 Problem Leukocytosis D72.829 Active 6964706 06 Problem Chronic pain G89.29 Active 8551004 1 Problem Bipolar I disorder, most recent episode (or curr ent) mixed, moderate F31.62 Active 62221036 Problem Reactive airway disease J45.909 Active 017816591206 Problem Pure hypercholesterolemia E78.00 Acti ve 261313667 Problem Dysuria R30.0 Active 87619557 Problem Bipolar disorder, in partial remission, most rec ent episode depressed F31.75 Active 05440647 Problem Hypokalemia E87.6 Active 66941761 Problem Eustachian tube dysfunction, unspecified laterality H69.80 Active 43197294 Problem Cough R05 Active 99961070 Problem Diabetic polyneuropathy associated with type 2 d iabetes mellitus E11.42 Active 78505735 Problem Essential hypertension I10 Active 44254152 Problem Bilateral primary osteoarthritis of knee M17.0 Active 394032593 Problem Polyneuropathy associated with underlying disease G63 Active 574814830 Problem Retinal edema H35.81 Active 289956 6 Problem Lymphocytosis D72.820 Active 270107 09 Problem Anemia of chronic illness D63.8 Acti ve 397837502 Problem Chronic lymphocytic leukemia C91.10 A ctive 35274935 Problem Falling R29.6 Active 658753257 Problem Pressure ulcer of other site, stage 3 L89.893 Active 946022677 Problem 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 Active 751842705 Problem Eye exam abnormal R93.8 Active 16 1374693 Problem Primary osteoarthritis of right knee M17.11 Active [id number] Problem Other iron deficiency anemia D50.8 A ctive 65258773 Problem Mild cognitive impairment G31.84 Acti ve 166393640 Problem shelter (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 Z79.4 Active 935549598 Problem Anxiety F41.9 Active 56124699 Problem Type 2 diabetes mellitus with diabetic neuropathy, uns pecified E11.40 Active 12180729 Problem Insomnia, unspecified type G47.00 Act sharon 198359830 Problem Morbid obesity E66.01 Active 47196 6002 Problem Skin cancer C44.90 Active 14589764 7 Problem Bipolar disorder F31.9 Active 137 97216 Problem Chronic diastolic (congestive) heart failure I50.3 2 Active 474644763 Problem Psychophysiological insomnia F51.04 A ctive 019667153 ALLERGIES No Information ENCOUNTERS Encounter Location Date Diagnosis [place] [id number] [facility] [id number] [address] [place] [address] Sep, [place] [address] [address] [facility] [id number] [address] [place] [phone] Jul, [place] [address] [place] [id number] [address] [place] [address] Jun, [place] [address] [address] [place] [id number] [address] [place] [address] Jun, [place] [address] [facility] [id number] [address] [place] [id number] Jun, [place] [address] [address] [facility] [id number] [address] [place] [address] Jun, Psychophysiological insomnia F51.04 ; Chronic pain G89.29 ; Bipolar I disorder, most recent episode (or current) mixed, moderate F31.62 ; 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 ; Polyneuropathy associated with underlying disease G63 ; Type 2 diabetes mellitus with diabetic neuropathy, unspecified E11.40 ; 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 and Hyperglycemia R73.9 [place] [address] [facility] [id number] [address] [place] [address] Jun, Bipolar disorder, in partial remission, most recent episode depressed F31.75 and Mild cognitive impairment G31.84 [facility] [address] [id number] [address] [place] [address] Jun, [facility] [address] [id number] [address] [place] [id number] Jun, Bipolar disorder F31.9 [facility] [address] [facility] [id number] [address] [place] [address] May, Bipolar disorder, in partial remission, most recent episode depressed F31.75 and Mild cognitive impairment G31.84 [facility] [address] [id number] [address] [place] [address] May, [facility] [address] [facility] [id number] [address] [place] [address] Apr, Chronic pain G89.29 and Bipo lar disorder F31.9 [facility] [address] [id number] [address] [place] [id number] Mar, Bipolar disorder F31.9 and C hronic pain G89.29 [facility] [address] [facility] [id number] [address] [place] [address] Feb, Bipolar disorder F31.9 [facility] [address] [id number] [address] [place] [address] Feb, Cellulitis of right upper ex tremity L03.113 and Skin abrasion T14.8XXA [facility] [address] [id number] [address] [place] [address] Feb, Bipolar disorder, in partial remission, most recent episode depressed F31.75 and Mild cognitive impairment G31.84 [facility] [address] [id number] [address] [place] [address] Feb, Chronic pain G89.29 [facility] [address] [facility] [id number] [address] [place] [address] Feb, Bipolar disorder, in partial remission, most recent episode depressed F31.75 and Mild cognitive impairment G31.84 [facility] [address] [id number] [address] [place] [address] January, Bipolar disorder, in partial remission, most recent episode depressed F31.75 and Mild cognitive impairment G31.84 [facility] [address] [id number] [address] [place] [address] January, Chronic pain G89.29 and Bipo lar disorder F31.9 [facility] [address] [id number] [address] [place] [address] January, Bipolar disorder, in partial remission, most recent episode depressed F31.75 and Mild cognitive impairment G31.84 [facility] [address] [id number] [address] [place] [id number] Dec, [facility] [address] [id number] [address] [place] [address] Dec, Chronic pain G89.29 and Bipo lar disorder F31.9 [facility] [address] [id number] [address] [place] [address] Dec, Edema of both lower extremit ies R60.0 [facility] [address] [id number] [address] [place] [address] Dec, Bipolar disorder F31.9 [facility] [address] [id number] [address] [place] [address] Dec, Bipolar disorder, in partial remission, most recent episode depressed F31.75 and Mild cognitive impairment G31.84 [facility] [address] [id number] [address] [place] [address] Nov, [facility] [address] [id number] [address] [place] [address] Nov, Chronic pain G89.29 [facility] [address] [id number] [address] [place] [address] Nov, Bipolar disorder, in partial remission, most recent episode depressed F31.75 and Mild cognitive impairment G31.84 [place] [address] [address] [place] [id number] [address] [place] [address] Nov, Bipolar disorder F31.9 [place] [address] [address] [place] [id number] [address] [place] [id number] 04 Nov, 2018 Encounter for Medicare annua [...] unspecified morphology N40.1 and Essential hypertension I10 [place] [address] [address] [place] [id number] [address] [place] [phone] Oct, Chronic pain G89.[address] [address] 18 Oct, 2018 Diabetes E11.9 [place] [address] [address] [place] [id number] [address] [place] [address] Oct, Bipolar I disorder, most rec ent episode (or current) mixed, moderate F31.62 and Mild cognitive impairment G31.84 [place] [address] [address] [place] [id number] [address] [place] [phone] Oct, Bipolar I disorder, most rec ent episode (or current) mixed, moderate F31.62 and Mild cognitive impairment G31.84 [place] [address] [address] [place] [id number] [address] [place] [address] Sep, Bipolar I disorder, most rec ent episode (or current) mixed, moderate F31.62 and Mild cognitive impairment G31.84 [place] [address] [address] [place] [id number] [address] [place] [address] Sep, [facility] [address] [facility] [id number] [address] [place] [address] Sep, Diabetes E11.9 ; Hypoxia R09 .02 ; Hyperglycemia R73.9 ; Therapeutic drug monitoring Z51.81 ; BMI 50.0-59.9, adult Z68.43 and Skin cancer C44.90 [place] [address] [address] [facility] [id number] [address] [place] [address] Sep, Chronic pain G89.29 [place] [address] [id number] [address] [place] [id number] Sep, Bipolar I disorder, most rec ent episode (or current) mixed, moderate F31.62 [place] [address] [address] [facility] [id number] [address] [place] [phone] Sep, [place] [address] [address] [facility] [id number] [address] [place] [id number] Sep, [facility] [address] [id number] [address] [place] [id number] Aug, Chronic pain G89.29 [place] [address] [address] [facility] [id number] [address] [place] [id number] Aug, Bipolar I disorder, most rec ent episode (or current) mixed, moderate F31.62 [place] [address] [address] [facility] [id number] [address] [place] [phone] Aug, Bipolar I disorder, most rec ent episode (or current) mixed, moderate F31.62 and Mild cognitive impairment G31.84 [place] [address] [facility] [id number] [address] [place] [address] Jul, [place] [address] [address] [facility] [id number] [address] [place] [address] Jul, Chronic pain G89.29 [facility] [address] [facility] [id number] [address] [place] [address] Jul, Bipolar I disorder, most rec ent episode (or current) mixed, moderate F31.62 and Mild cognitive impairment G31.84 [facility] [address] [id number] [address] [place] [address] Jul, Bipolar I disorder, most rec ent episode (or current) mixed, moderate F31.62 and MCI (mild cognitive impairment) G31.84 [facility] [address] [id number] [address] [place] [address] Jul, [facility] [address] [facility] [id number] [address] [place] [id number] Jul, [facility] [address] [facility] [id number] [address] [place] [id number] Jul, Bipolar I disorder, most rec ent episode (or current) mixed, moderate F31.62 [facility] [address] [facility] [id number] [address] [place] [id number] Jul, Chronic pain G89.29 [facility] [address] [facility] [id number] [address] [place] [id number] Jun, Bipolar I disorder, most rec ent episode (or current) mixed, moderate F31.62 [place] [address] [address] [facility] [id number] [address] [place] [address] Jun, Pre-procedure lab exam Z01.8 12 [place] [address] [facility] [id number] [address] [place] [phone] Jun, [facility] [address] [id number] [place] [id number] Jun, [facility] [address] [facility] [id number] [address] [place] [id number] Jun, [place] [address] [address] [facility] [id number] [address] [place] [address] Jun, Forgetfulness R68.89 ; Pre-s yncope R55 ; Localized edema R60.0 ; Other iron deficiency anemia D50.8 and BMI 50.0-59.9, adult Z68.43 [facility] [address] [facility] [id number] [address] [place] [phone] Jun, Chronic pain G89.29 [facility] [address] [facility] [id number] [address] [place] [address] Jun, Chronic pain G89.29 [facility] [address] [facility] [id number] [address] [place] [address] Jun, Bipolar I disorder, most rec ent episode (or current) mixed, moderate F31.62 [place] [address] [address] [facility] [id number] [address] [place] [address] May, Chronic pain G89.29 [place] [address] [address] [facility] [id number] [address] [place] [address] Apr, [place] [address] [address] [place] [id number] [place] [address] Apr, Chronic pain G89.29 [place] [address] [address] [place] [id number] [address] [place] [address] Apr, Primary osteoarthritis of ri ght knee M17.11 [place] [address] [address] [place] [id number] [address] [place] [address] Mar, [place] [address] [address] [facility] [id number] [address] [place] [address] Mar, BMI 50.0-59.9, adult Z68.43 and Bipolar disorder, in partial remission, most recent episode depressed F31.75 [place] [address] [address] [place] [id number] [address] [place] [address] Mar, Diabetes E11.9 ; Pure hyperc holesterolemia E78.00 ; Essential hypertension I10 ; Nausea with vomiting, unspecified R11.2 and Headache, unspecified headache type R51 [place] [address] [address] [facility] [id number] [address] [place] [address] Mar, Bipolar I disorder, most rec ent episode (or current) mixed, moderate F31.62 [place] [address] [address] [facility] [id number] [address] [place] [phone] Mar, Bipolar I disorder, most rec ent episode (or current) mixed, moderate F31.62 [facility] [address] [facility] [id number] [address] [place] [address] Mar, Chronic pain G89.29 [facility] [address] [facility] [id number] [address] [place] [address] Mar, Bipolar I disorder, most rec ent episode (or current) mixed, moderate F31.62 [facility] [address] [facility] [id number] [address] [place] [address] Feb, Bipolar I disorder, most rec ent episode (or current) mixed, moderate F31.62 [facility] [address] [facility] [id number] [address] [place] [address] Feb, Chronic pain G89.29 [facility] [address] [facility] [id number] [address] [place] [address] Feb, Decubitus ulcer of right josselin t, stage 3 L89.893 and BMI 50.0-59.9, adult Z68.43 [facility] [address] [facility] [id number] [address] [place] [phone] Feb, Bipolar I disorder, most rec ent episode (or current) mixed, moderate F31.62 [place] [address] [address] [facility] [id number] [address] [place] [address] Feb, [facility] [address] [facility] [id number] [address] [place] [address] January, [facility] [address] [facility] [id number] [address] [place] [address] January, Chronic pain G89.29 [facility] [address] [facility] [id number] [address] [place] [address] January, Bipolar I disorder, most rec ent episode (or current) mixed, moderate F31.62 [facility] [address] [place] [id number] [address] [place] [address] January, Bipolar I disorder, most rec ent episode (or current) mixed, moderate F31.62 [place] [address] [address] Dec, Bipolar I disorder, most rec ent episode (or current) mixed, moderate F31.62 and BMI 50.0-59.9, adult Z68.43 [place] [address] [address] Dec, Bipolar I disorder, most rec ent episode (or current) mixed, moderate F31.62 [place] [address] [address] Dec, Chronic pain G89.29 [place] [address] [address] Dec, DM neuro manif type II E11.4 9 ; Right flank pain R10.9 ; shelter 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 Z79.891 ; Encounter for medication monitoring Z51.81 and BMI 50.0-59.9, adult Z68.43 [place] [address] [address] Dec, Bipolar I disorder, most rec ent episode (or current) mixed, moderate F31.62 [place] [address] [address] [place] [id number] [address] [place] [address] Nov, Bipolar I disorder, most rec ent episode (or current) mixed, moderate F31.62 [place] [address] [address] [place] [id number] [address] [place] [address] Nov, Chronic pain G89.29 [place] [address] [address] [place] [id number] [place] [address] Nov, Bipolar I disorder, most rec ent episode (or current) mixed, moderate F31.62 [place] [address] [address] Nov, Hypokalemia E87.6 [facility] [address] [place] [id number] [address] [place] [id number] Nov, Bipolar I disorder, most rec ent episode (or current) mixed, moderate F31.62 [facility] [address] [place] [id number] [place] [address] Oct, Chronic pain G89.29 [facility] [address] [address] Oct, BMI 50.0-59.9, adult Z68.43 and Bipolar I disorder, most recent episode (or current) mixed, moderate F31.62 [place] [address] [address] Oct, Bipolar I disorder, most rec ent episode (or current) mixed, moderate F31.62 [place] [address] [address] Oct, [facility] [address] [address] Oct, Hypokalemia E87.6 [facility] [address] [address] Oct, DM neuro manif type II E11.4 9 [place] [address] [address] Oct, Bipolar I disorder, most rec ent episode (or current) mixed, moderate F31.62 [facility] [address] [place] [id number] [place] [address] Oct, Bipolar I disorder, most rec ent episode (or current) mixed, moderate F31.62 [facility] [address] [place] [id number] [address] [place] [address] 14 Oct, 2017 Hyperkalemia E87.5 ; Falling R29.6 ; BMI 50.0-59.9, adult Z68.43 and Acute left ankle pain M25.572 [place] [id number] [place] [address] 08 Oct, 2017 DM neuro manif type II E11.4 9 [place] [address] [address] [place] [id number] [address] [place] [address] Oct, [place] [address] [address] Sep, Chronic pain G89.29 [place] [address] [place] [id number] [place] [address] Sep, [place] [address] [address] Sep, Bilateral primary osteoarthr itis of knee M17.0 [place] [address] [address] Sep, Generalized edema R60.1 [place] [id number] [place] [address] Sep, Bipolar I disorder, most rec ent episode (or current) mixed, moderate F31.62 [place] [address] [address] 15 Sep, 2017 Hypoxia R09.02 ; Other hyper volemia E87.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 ; Anemia of chronic illness D63.8 and BMI 50.0- 59.9, adult Z68.43 [place] [address] [address] [place] [id number] [address] [place] [address] Sep, [place] [address] [address] Sep, Bipolar I disorder, most rec ent episode (or current) mixed, moderate F31.62 [place] [address] [address] Aug, Chronic pain G89.29 [facility] [address] [facility] [id number] [address] [place] [address] Aug, Generalized edema R60.1 [facility] [address] [facility] [id number] [address] [place] [address] Aug, [facility] [address] [facility] [id number] [address] [place] [phone] Aug, [facility] [address] [facility] [id number] [address] [place] [id number] 14 Aug, 2017 Bipolar I disorder, most rec ent episode (or current) mixed, moderate F31.62 [facility] [address] [facility] [id number] [address] [place] [phone] 07 Aug, 2017 Bipolar I disorder, most rec ent episode (or current) mixed, moderate F31.62 [place] [address] [facility] [id number] [address] [place] [address] Aug, Chronic pain G89.29 [facility] [address] [facility] [id number] [address] [place] [address] Jul, Bipolar I disorder, most rec ent episode (or current) mixed, moderate F31.62 [facility] [address] [facility] [id number] [address] [place] [address] Jul, Bipolar I disorder, most rec ent episode (or current) mixed, moderate F31.62 and BMI 60.0-69.9, adult Z68.44 [facility] [address] [facility] [id number] [address] [place] [id number] 16 Jul, 2017 Bipolar I disorder, most rec ent episode (or current) mixed, moderate F31.62 [facility] [address] [facility] [id number] [address] [place] [id number] 06 Jul, 2017 Chronic pain G89.29 [facility] [address] [facility] [id number] [address] [place] [id number] 02 Jul, 2017 Bipolar I disorder, most rec ent episode (or current) mixed, moderate F31.62 [facility] [address] [facility] [id number] [address] [place] [phone] 18 Jun, 2017 Polyneuropathy associated wi th underlying disease G63 and Diabetes E11.9 [facility] [address] [facility] [id number] [address] [place] [id number] 16 Jun, 2017 Bipolar I disorder, most rec ent episode (or current) mixed, moderate F31.62 [facility] [address] [facility] [id number] [address] [place] [phone] Jun, Chronic pain G89.29 [facility] [address] [facility] [id number] [address] [place] [phone] May, Bipolar I disorder, most rec ent episode (or current) mixed, moderate F31.62 [facility] [address] [facility] [id number] [address] [place] [phone] May, Bipolar I disorder, most rec ent episode (or current) mixed, moderate F31.62 [facility] [address] [facility] [id number] [address] [place] [id number] 20 May, 2017 Diabetic polyneuropathy asso ciated with type 2 diabetes mellitus E11.42 [facility] [address] [facility] [id number] [address] [place] [id number] 18 May, 2017 Bipolar I disorder, most rec ent episode (or current) mixed, moderate F31.62 [facility] [address] [facility] [id number] [address] [place] [phone] 13 May, 2017 Bipolar I disorder, most rec ent episode (or current) mixed, moderate F31.62 [facility] [address] [facility] [id number] [address] [place] [phone] May, Chronic pain G89.29 [facility] [address] [facility] [id number] [address] [place] [phone] Apr, Bipolar I disorder, most rec ent episode (or current) mixed, moderate F31.62 [facility] [address] [facility] [id number] [address] [place] [phone] Apr, [facility] [address] [facility] [id number] [address] [place] [id number] Apr, Chronic pain G89.29 and DM n euro manif type II E11.49 [facility] [address] [facility] [id number] [address] [place] [phone] Apr, [facility] [address] [facility] [id number] [address] [place] [phone] Apr, Bipolar I disorder, most rec ent episode (or current) mixed, moderate F31.62 [facility] [address] [facility] [id number] [address] [place] [id number] Apr, Chronic pain G89.29 [facility] [address] [place] [id number] [address] [place] [id number] Apr, Iliotibial band syndrome, le ft M76.32 [facility] [address] [facility] [id number] [address] [place] [phone] Apr, Bipolar I disorder, most rec ent episode (or current) mixed, moderate F31.62 [facility] [address] [place] [id number] [address] [place] [phone] Mar, Bipolar I disorder, most rec ent episode (or current) mixed, moderate F31.62 [facility] [address] [place] [id number] [address] [place] [phone] Mar, Bipolar I disorder, most rec ent episode (or current) mixed, moderate F31.62 [facility] [address] [facility] [id number] [address] [place] [id number] Mar, [facility] [address] [facility] [id number] [address] [place] [phone] Mar, Bipolar I disorder, most rec ent episode (or current) mixed, moderate F31.62 [facility] [address] [place] [id number] [address] [place] [id number] Mar, Chronic pain G89.29 [facility] [address] [id number] [address] [place] [phone] Mar, Bipolar I disorder, most rec ent episode (or current) mixed, moderate F31.62 [facility] [address] [id number] [address] [place] [id number] Mar, Bipolar I disorder, most rec ent episode (or current) mixed, moderate F31.62 [facility] [address] [facility] [id number] [address] [place] [id number] Mar, Acute pain of left knee M25. 562 ; Left hip pain M25.552 ; Generalized edema R60.1 and Tongue swelling R22.0 [facility] [address] [facility] [id number] [address] [place] [phone] Mar, [facility] [address] [facility] [id number] [address] [place] [phone] Feb, Chronic pain G89.29 [facility] [address] [facility] [id number] [address] [place] [phone] Feb, Diabetes E11.9 [facility] [address] [facility] [id number] [address] [place] [id number] January, Chronic pain G89.29 [facility] [address] [facility] [id number] [address] [place] [id number] January, [facility] [address] [facility] [id number] [address] [place] [id number] January, Bipolar I disorder, most rec ent episode (or current) mixed, moderate F31.62 [facility] [address] [facility] [id number] [address] [place] [phone] Dec, Bipolar I disorder, most rec ent episode (or current) mixed, moderate F31.62 [facility] [address] [facility] [id number] [address] [place] [id number] Dec, Chronic pain G89.29 [facility] [address] [facility] [id number] [address] [place] [id number] Dec, Bipolar I disorder, most rec ent episode (or current) mixed, moderate F31.62 [facility] [address] [facility] [id number] [address] [place] [phone] Dec, Diabetes E11.9 ; Essential h ypertension I10 ; Chronic pain G89.29 and Morbid obesity E66.01 [facility] [address] [facility] [id number] [address] [place] [id number] Dec, [facility] [address] [facility] [id number] [address] [place] [id number] Dec, Bipolar I disorder, most rec ent episode (or current) mixed, moderate F31.62 [place] [address] [place] [id number] [address] [place] [id number] Dec, Bipolar I disorder, most rec ent episode (or current) mixed, moderate F31.62 [place] [address] [facility] [id number] [address] [place] [id number] Nov, Chronic pain G89.29 [facility] [address] [facility] [id number] [address] [place] [phone] Nov, Bipolar I disorder, most rec ent episode (or current) mixed, moderate F31.62 [place] [address] [place] [id number] [address] [place] [phone] Nov, [facility] [address] [facility] [id number] [address] [place] [id number] Nov, Bipolar I disorder, most rec ent episode (or current) mixed, moderate F31.62 [place] [address] [facility] [id number] [address] [place] [phone] Nov, Bipolar I disorder, most rec ent episode (or current) mixed, moderate F31.62 [place] [address] [place] [id number] [address] [place] [id number] Nov, [place] [address] [facility] [id number] [address] [place] [phone] Nov, [facility] [address] [facility] [id number] [address] [place] [phone] Nov, [facility] [address] [facility] [id number] [address] [place] [phone] Oct, Chronic pain G89.29 [facility] [address] [facility] [id number] [address] [place] [id number] Oct, Bipolar I disorder, most rec ent episode (or current) mixed, moderate F31.62 [facility] [address] [facility] [id number] [address] [place] [phone] Oct, [facility] [address] [facility] [id number] [address] [place] [id number] Oct, Chronic pain G89.29 ; Diabet es E11.9 ; Anxiety F41.9 and 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 [facility] [address] [facility] [id number] [address] [place] [id number] Oct, [facility] [address] [facility] [id number] [address] [place] [id number] Oct, Diabetes E11.9 [facility] [address] [facility] [id number] [address] [place] [phone] Oct, Bipolar I disorder, most rec ent episode (or current) mixed, moderate F31.62 [facility] [address] [facility] [id number] [address] [place] [phone] Sep, Chronic pain G89.29 [facility] [address] [facility] [id number] [address] [place] [id number] Sep, Chronic pain G89.29 [facility] [address] [facility] [id number] [address] [place] [phone] Aug, Chronic pain G89.29 [facility] [address] [place] [id number] [address] [place] [phone] Jul, [facility] [address] [place] [id number] [address] [place] [id number] Jul, Diabetes E11.9 [facility] [address] [place] [id number] [address] [place] [id number] Jul, Chronic pain G89.29 [facility] [address] [place] [id number] [place] [phone] Jul, Bipolar I disorder, most rec ent episode (or current) mixed, moderate F31.62 [place] [address] [phone] Jun, Bipolar I disorder, most rec ent episode (or current) mixed, moderate F31.62 [place] [address] [id number] Jun, [place] [address] [phone] Jun, Bipolar I disorder, most rec ent episode (or current) mixed, moderate F31.62 [place] [address] [id number] 30 May, 2016 Insomnia, unspecified type G 47.00 [place] [address] [place] [id number] [address] [place] [id number] May, Bipolar I disorder, most rec ent episode (or current) mixed, moderate F31.62 [facility] [address] [place] [id number] [address] [place] [id number] 14 May, 2016 [place] [address] [id number] 08 May, 2016 Bipolar I disorder, most rec ent episode (or current) mixed, moderate F31.62 [place] [address] [place] [id number] [address] [place] [id number] 06 May, 2016 Diabetes E11.9 and Essential hypertension I10 [facility] [address] [place] [id number] [address] [place] [id number] Apr, Chronic pain G89.29 [place] [address] [facility] [id number] [address] [place] [id number] Apr, Bipolar I disorder, most rec ent episode (or current) mixed, moderate F31.62 [place] [address] [facility] [id number] [address] [place] [id number] Apr, [place] [address] [facility] [id number] [address] [place] [phone] Apr, [place] [address] [facility] [id number] [address] [place] [address] Mar, Chronic pain G89.29 ; Headac he, unspecified headache type R51 ; Neuropathy G62.9 ; Pain of right hip joint M25.551 and Essential hypertension I10 [place] [address] [facility] [id number] [address] [place] [id number] Mar, Chronic pain G89.29 [place] [address] [facility] [id number] [address] [place] [id number] Mar, Bipolar I disorder, most rec ent episode (or current) mixed, moderate F31.62 [place] [address] [facility] [id number] [address] [place] [id number] Feb, Bipolar I disorder, most rec ent episode (or current) mixed, moderate F31.62 and Insomnia, unspecified type G47.00 [place] [address] [facility] [id number] [address] [place] [phone] Feb, Chronic pain G89.29 [place] [address] [facility] [id number] [address] [place] [id number] Feb, Bipolar I disorder, most rec ent episode (or current) mixed, moderate F31.62 [place] [address] [facility] [id number] [address] [place] [id number] January, Bipolar I disorder, most rec ent episode (or current) mixed, moderate F31.62 [facility] [address] [id number] [address] [place] [phone] January, Chronic pain G89.29 [facility] [address] [id number] [address] [place] [id number] January, Chronic pain G89.29 and Esse ntial hypertension I10 [facility] [address] [id number] [address] [place] [phone] January, Bipolar I disorder, most rec ent episode (or current) mixed, moderate F31.62 [facility] [address] [id number] [address] [place] [id number] Dec, [facility] [address] [facility] [id number] [address] [place] [phone] Dec, [facility] [address] [facility] [id number] [address] [place] [id number] Dec, [facility] [address] [facility] [id number] [address] [place] [id number] Dec, [facility] [address] [facility] [id number] [address] [place] [phone] Nov, Reactive airway disease J45. 909 [facility] [address] [facility] [id number] [address] [place] [phone] Nov, [facility] [address] [facility] [id number] [address] [place] [phone] Nov, [facility] [address] [facility] [id number] [address] [place] [phone] Nov, [facility] [address] [facility] [id number] [address] [place] [phone] Nov, [facility] [address] [facility] [id number] [address] [place] [id number] Nov, Onychomycosis B35.1 ; Hammer toe M20.40 ; [place] or callus L84 and DM neuro manif type II E11.49 [place] [address] [facility] [id number] [address] [place] [address] Nov, Chronic pain G89.29 ; Leukoc ytosis D72.829 and Diabetes E11.9 [facility] [address] [facility] [id number] [address] [place] [phone] Nov, [place] [address] [place] [id number] [address] [place] [id number] Oct, Bronchitis J40 [place] [address] [phone] Oct, [place] [address] [id number] Oct, [place] [address] [place] [id number] [place] [phone] Oct, Mastoiditis, unspecified lat erality H70.90 and Type 2 diabetes mellitus with complication E11.8 [place] [address] [place] [id number] [address] [place] [phone] Sep, [place] [address] [phone] Sep, Dysuria R30.0 ; Cough R05 ; Benign prostatic hyperplasia with lower urinary tract symptoms, unspecified morphology N40.1 ; Hypokalemia E87.6 and Eustachian tube dysfunction, unspecified laterality H69.80 [place] [address] [place] [id number] [address] [place] [phone] Sep, Moderate mixed bipolar I dis order F31.62 [place] [address] [phone] Sep, Hypokalemia E87.6 [place] [address] [place] [id number] [address] [place] [id number] Sep, [place] [address] [id number] Sep, Upper respiratory tract infe ction, unspecified type J06.9 [facility] [address] [id number] [address] [place] [phone] Aug, [facility] [address] [id number] [address] [place] [id number] Aug, Dysuria R30.0 [facility] [address] [id number] [address] [place] [id number] Aug, [facility] [address] [id number] [address] [place] [phone] Jul, [facility] [address] [id number] [address] [place] [phone] Jul, [facility] [address] [id number] [address] [place] [id number] Jul, [facility] [address] [id number] [address] [place] [id number] Jul, [facility] [address] [id number] [address] [place] [phone] Jun, [facility] [address] [id number] [address] [place] [phone] Jun, [facility] [address] [id number] [address] [place] [id number] Jun, [facility] [address] [id number] [address] [place] [phone] May, [facility] [address] [id number] [address] [place] [id number] May, Bipolar I disorder, most rec ent episode (or current) mixed, moderate 296.62 [facility] [address] [id number] [address] [place] [id number] 16 May, 2015 [facility] [address] [id number] [address] [place] [id number] May, Bipolar I disorder, most rec ent episode (or current) mixed, moderate 296.62 and Major depressive disorder, recurrent episode, severe, specified as with psychotic behavior 296.34 [facility] [address] [facility] [id number] [address] [place] [id number] May, Bipolar I disorder, most rec ent episode (or current) mixed, moderate 296.62 [facility] [address] [facility] [id number] [address] [place] [phone] May, [facility] [address] [facility] [id number] [address] [place] [phone] Apr, [facility] [address] [id number] [address] [place] [id number] Apr, [facility] [address] [place] [id number] [address] [place] [id number] Apr, Unspecified disorder of kidn ey and ureter 593.9 and Diabetes mellitus type 2, uncontrolled 250.02 [facility] [address] [place] [id number] [address] [place] [phone] Apr, [facility] [address] [id number] [address] [place] [id number] Apr, [facility] [address] [place] [id number] [address] [place] [id number] Apr, [facility] [address] [id number] [address] [place] [id number] Apr, [facility] [address] [facility] [id number] [address] [place] [id number] Apr, Diabetes mellitus type II, u ncontrolled 250.02 [facility] [address] [id number] [address] [place] [phone] Apr, [facility] [address] [facility] [id number] [address] [place] [phone] Mar, [facility] [address] [facility] [id number] [address] [place] [phone] Mar, [facility] [address] [facility] [id number] [address] [place] [id number] Mar, [facility] [address] [facility] [id number] [address] [place] [id number] Mar, Major depressive disorder, r ecurrent episode, severe, specified as with psychotic behavior 296.34 and Bipolar I disorder, most recent episode (or current) mixed, moderate 296.62 [facility] [address] [facility] [id number] [address] [place] [phone] Mar, Diabetes 250.00 ; Anuria 788 .5 ; Nausea and vomiting 787.01 and Diarrhea 787.91 [facility] [address] [facility] [id number] [address] [place] [phone] Mar, Diabetes 250.00 [facility] [address] [place] [id number] [address] [place] [id number] Mar, [facility] [address] [place] [id number] [address] [place] [id number] Mar, Diabetes 250.00 [facility] [address] [facility] [id number] [address] [place] [id number] Mar, [facility] [address] [place] [id number] [address] [place] [id number] Mar, [facility] [address] [place] [id number] [address] [place] [address] [id number] Mar, [facility] [address] [id number] [address] [place] [id number] Mar, [facility] [address] [facility] [id number] [address] [place] [id number] Mar, Bipolar I disorder, most rec ent episode (or current) mixed, moderate 296.62 and Major depressive disorder, recurrent episode, severe, specified as with psychotic behavior 296.34 [facility] [address] [id number] [address] [place] [id number] Mar, Magnesium deficiency 275.2 ; Hypokalemia 276.8 ; Nausea & vomiting 787.01 and Diabetes mellitus type 2, uncontrolled 250.02 [facility] [address] [address] Feb, [facility] [address] [address] Feb, Bipolar I disorder, most rec ent episode (or current) mixed, moderate 296.62 [place] [address] [address] Feb, Nausea and vomiting 787.01 ; Left elbow pain 719.42 ; Anuria 788.5 and Diabetes 250.00 [place] [address] [id number] Feb, [place] [address] [address] Feb, Hypopotassemia 276.8 and Hyp okalemia 276.8 [place] [address] [id number] Feb, Hypopotassemia 276.8 and Hyp okalemia 276.8 [place] [address] [address] Feb, Seborrheic keratoses 702.19 [place] [address] [address] Feb, Hypopotassemia 276.8 and Low magnesium levels 275.2 [place] [address] [address] January, [place] [address] [address] January, [facility] [address] [address] January, [place] [address] [address] January, Scalp lesion 709.9 [facility] [address] [id number] [address] [place] [address] January, [facility] [address] [id number] [address] [place] [address] Dec, Tear of medial cartilage or meniscus of knee, current 836.0 and 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 [facility] [address] [id number] [address] [place] [address] Dec, [facility] [address] [id number] [address] [place] [address] Dec, [facility] [address] [id number] [address] [place] [address] Dec, Squamous cell carcinoma, 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 [facility] [address] [id number] [address] [place] [id number] Dec, [facility] [address] [id number] [address] [place] [id number] Dec, [facility] [address] [id number] [address] [place] [address] Nov, [facility] [address] [id number] [address] [place] [id number] Nov, [facility] [address] [id number] [address] [place] [id number] Nov, [facility] [address] [id number] [address] [place] [id number] Nov, [facility] [address] [id number] [address] [place] [id number] Nov, [facility] [address] [id number] [address] [place] [address] Nov, [facility] [address] [id number] [address] [place] [id number] Nov, [facility] [address] [id number] [address] [place] [address], [place] [address] 04 Nov, 2014 [facility] [address] [id number] [address] [place] [address], [place] [address] Nov, 2014 [facility] [address] [id number] [address] [place] [address], [place] [address] Nov, 2014 [facility] [address] [id number] [address] [place] [address], [place] [address] Nov, 2014 [facility] [address] [id number] [address] [place] [address], [place] [address] Nov, 2014 [facility] [address] [id number] [address] [place] [address], [place] [address] Oct, 2014 [facility] [address] [id number] [address] [place] [address], [place] [address] Oct, 2014 [facility] [address] [id number] [address] [place] [address], [place] [address] Oct, 2014 [facility] [address] [id number] [address] [place] [address], [place] [address] Oct, 2014 [facility] [address] [id number] [address] [place] [address], [place] [address] Oct, 2014 [facility] [address] [id number] [address] [place] [address], [place] [address] Oct, 2014 [facility] [address] [id number] [address] [place] [address], [place] [address] Oct, 2014 [facility] [address] [id number] [address] [place] [address], [place] [address] Oct, 2014 [facility] [address] [id number] [address] [place] [address], [place] [address] Oct, 2014 [facility] [address] [id number] [address] [place] [id number] Sep, [facility] [address] [id number] [address] [place] [address] Sep, [facility] [address] [id number] [address] [place] [address], [place] [address] Sep, [facility] [address] [id number] [address] [place] [address], [place] [address] Sep, [facility] [address] [id number] [address] [place] [address], [place] [address] Sep, [facility] [address] [id number] [address] [place] [address], [place] [address] Sep, [facility] [address] [id number] [address] [place] [address], [place] [address] Sep, [facility] [address] [id number] [address] [place] [address], [place] [address] Sep, [facility] [address] [id number] [address] [place] [address], [place] [address] Sep, [facility] [address] [id number] [address] [place] [address], [place] [address] Sep, [facility] [address] [id number] [address] [place] [address], [place] [address] Sep, [facility] [address] [id number] [address] [place] [address], [place] [address] Sep, [facility] [address] [id number] [address] [place] [address], [place] [address] Sep, [facility] [address] [id number] [address] [place] [id number] Sep, [facility] [address] [id number] [address] [place] [address], [place] [address] Sep, [facility] [address] [id number] [address] [place] [address], [place] [address] Sep, [facility] [address] [id number] [address] [place] [address], [place] [address] Aug, [facility] [address] [id number] [facility] [place] [address] Aug, [facility] [address] [id number] [facility] [place] [address] Aug, [facility] [address] [id number] [facility] [place] [address] Aug, [facility] [address] [id number] [facility] [place] [address] Aug, [facility] [address] [id number] [facility] [place] [address] Aug, [facility] [address] [id number] [address] [place] [address], [place] [address] Aug, [facility] [address] [id number] [address] [place] [address], [place] [address] Aug, [facility] [address] [id number] [address] [place] [address], [place] [address] Aug, [facility] [address] [id number] [address] [place] [address], [place] [address] Aug, [facility] [address] [id number] [address] [place] [address], [place] [address] Aug, [facility] [address] [place] [id number] Aug, [facility] [address] [id number] [address] [place] [address], [place] [address] Aug, [facility] [address] [id number] [address] [place] [address], [place] [address] Aug, [facility] [address] [id number] [address] [place] [address], [place] [address] Aug, [facility] [address] [id number] [address] [place] [address], [place] [address] Aug, [facility] [address] [id number] [address] [place] [address], [place] [address] Aug, [facility] [address] [id number] [address] [place] [address], [place] [address] Aug, [facility] [address] [id number] [address] [place] [address], [place] [address] Aug, [facility] [address] [id number] [address] [place] [address], [place] [address] Aug, [facility] [address] [id number] [address] [place] [address], [place] [address] Aug, [facility] [address] [id number] [address] [place] [address], [place] [address] Aug, [facility] [address] [id number] [address] [place] [address], [place] [address] Aug, [facility] [address] [id number] [address] [place] [address], [place] [address] Aug, [facility] [address] [id number] [address] [place] [address], [place] [address] Aug, [facility] [address] [id number] [address] [place] [address], [place] [address] Aug, [facility] [address] [id number] [address] [place] [address], [place] [address] Aug, [facility] [address] [id number] [address] [place] [address], [place] [address] Aug, [facility] [address] [id number] [address] [place] [address], [place] [address] Aug, [facility] [address] [id number] [address] [place] [address], [place] [address] Aug, [facility] [address] [id number] [address] [place] [address], [place] [address] Jul, [facility] [address] [id number] [address] [place] [address], [place] [address] Jul, [facility] [address] [id number] [address] [place] [address] [address] Jul, [facility] [address] [id number] [address] [place] [address], [place] [address] Jul, [facility] [address] [id number] [address] [place] [address], [place] [address] Jul, [facility] [address] [id number] [address] [place] [address], [place] [address] Jul, [facility] [address] [id number] [address] [place] [address], [place] [address] Jul, [facility] [address] [id number] [address] [place] [address], [place] [address] Jul, [facility] [address] [id number] [address] [place] [address], [place] [address] Jul, [facility] [address] [id number] [address] [place] [address], [place] [address] Jul, [facility] [address] [id number] [address] [place] [address], [place] [address] Jun, [facility] [address] [id number] [address] [place] [address], [place] [address] Jun, [facility] [address] [id number] [address] [place] [address], [place] [address] Jun, [facility] [address] [id number] [address] [place] [id number] Jun, [facility] [address] [id number] [address] [place] [id number] Jun, [facility] [address] [id number] [address] [place] [address], [place] [address] Jun, [facility] [address] [id number] [address] [place] [id number] Jun, [facility] [address] [id number] [address] [place] [id number] Jun, [facility] [address] [id number] [address] [place] [address], [place] [address] Jun, [facility] [address] [id number] [address] [place] [address], [place] [address] Jun, [facility] [address] [id number] [address] [place] [address], [place] [address] 29 Sep, 2013 [facility] [address] [id number] [address] [place] [address], [place] [address] 29 Sep, 2013 [facility] [address] [id number] [address] [place] [address], [place] [address] 26 Sep, 2013 [facility] [address] [id number] [address] [place] [address], [place] [address] 26 May, 2013 [facility] [address] [id number] [address] [place] [address], [place] [address] 17 May, 2013 [facility] [address] [id number] [address] [place] [address], [place] [address] 17 May, 2013 [facility] [address] [id number] [address] [place] [address], [place] [address] 15 May, 2013 [facility] [address] [id number] [address] [place] [address], [place] [address] 15 May, 2013 [facility] [address] [id number] [address] [place] [address], [place] [address] 15 May, 2013 [facility] [address] [id number] [address] [place] [address], [place] [address] 15 May, 2013 [facility] [address] [id number] [address] [place] [address], [place] [address] 10 Sep, 2013 [facility] [address] [id number] [address] [place] [address], [place] [address] 10 May, 2013 [facility] [address] [id number] [address] [place] [address], [place] [address] 09 Sep, 2013 [facility] [address] [id number] [address] [place] [address], [place] [address] May, [facility] [address] [id number] [facility] [place] [address] May, [facility] [address] [id number] [address] [place] [address], [place] [address] May, [facility] [address] [id number] [address] [place] [address], [place] [address] Apr, [facility] [address] [id number] [address] [place] [address], [place] [address] Apr, [facility] [address] [id number] [address] [place] [address], [place] [address] Apr, [facility] [address] [id number] [address] [place] [address], [place] [address] Apr, [facility] [address] [id number] [address] [place] [address], [place] [address] Apr, [facility] [address] [id number] [address] [place] [address], [place] [address] Apr, [facility] [address] [id number] [address] [place] [address], [place] [address] Apr, [facility] [address] [id number] [address] [place] [address], [place] [address] Apr, [facility] [address] [id number] [address] [place] [address], [place] [address] Apr, [facility] [address] [id number] [address] [place] [address], [place] [address] Apr, [facility] [address] [id number] [address] [place] [address], [place] [address] Apr, [facility] [address] [id number] [address] [place] [address], [place] [address] Apr, [facility] [address] [id number] [address] [place] [address], [place] [address] Apr, [facility] [address] [id number] [address] [place] [address], [place] [address] Apr, [facility] [address] [id number] [facility] [place] [address] Apr, [facility] [address] [id number] [address] [place] [address], [place] [address] Mar, [facility] [address] [id number] [address] [place] [address], [place] [address] Mar, [facility] [address] [id number] [address] [place] [address], [place] [address] Mar, [facility] [address] [id number] [address] [place] [address], [place] [address] Mar, [facility] [address] [id number] [address] [place] [address], [place] [address] Mar, [facility] [address] [id number] [address] [place] [address], [place] [address] Mar, [facility] [address] [id number] [address] [place] [address], [place] [address] Mar, [facility] [address] [id number] [address] [place] [address], [place] [address] Mar, [facility] [address] [id number] [address] [place] [address], [place] [address] Mar, [facility] [address] [id number] [address] [place] [address], [place] [address] Mar, [facility] [address] [id number] [address] [place] [address], [place] [address] Mar, [facility] [address] [id number] [address] [place] [address], [place] [id number] Mar, [facility] [address] [id number] [address] [place] [address], [place] [address] Mar, [facility] [address] [id number] [address] [place] [address], [place] [address] Mar, [facility] [address] [id number] [facility] [place] [address] Mar, [facility] [address] [id number] [facility] [place] [address] Mar, [facility] [address] [id number] [facility] [place] [address] Mar, [facility] [address] [id number] [address] [place] [address], [place] [address] Mar, [facility] [address] [id number] [address] [place] [address], [place] [address] Feb, [facility] [address] [id number] [address] [place] [address], [place] [address] Feb, [facility] [address] [id number] [address] [place] [address], [place] [address] Feb, [facility] [address] [id number] [address] [place] [address], [place] [address] Feb, [facility] [address] [id number] [address] [place] [address], [place] [address] Feb, [facility] [address] [id number] [address] [place] [address], [place] [address] Feb, [facility] [address] [id number] [address] [place] [address], [place] [address] Feb, [facility] [address] [id number] [address] [place] [address], [place] [address] Feb, [facility] [address] [id number] [address] [place] [address], [place] [address] Feb, [facility] [address] [id number] [address] [place] [address], [place] [address] Feb, [facility] [address] [id number] [address] [place] [address], [place] [address] Feb, [facility] [address] [id number] [address] [place] [address], [place] [id number] Feb, [facility] [address] [id number] [address] [place] [address] Feb, [facility] [address] [id number] [address] [place] [address], [place] [id number] Feb, [facility] [address] [id number] [address] [place] [address], [place] [id number] January, [facility] [address] [id number] [address] [place] [address], [place] [address] January, [facility] [address] [id number] [address] [place] [address], [place] [id number] January, [facility] [address] [id number] [address] [place] [address], [place] [address] January, [facility] [address] [id number] [address] [place] [address], [place] [address] January, [facility] [address] [id number] [address] [place] [address], [place] [id number] January, [facility] [address] [id number] [address] [place] [address], [place] [address] January, [facility] [address] [id number] [address] [place] [address], [place] [address] January, [facility] [address] [id number] [address] [place] [address], [place] [address] January, [facility] [address] [id number] [address] [place] [address], [place] [id number] January, [facility] [address] [id number] [address] [place] [address], [place] [address] January, [facility] [address] [id number] [address] [place] [address], [place] [address] January, [facility] [address] [id number] [address] [place] [address], [place] [address] January, [facility] [address] [id number] [address] [place] [address], [place] [id number] January, [facility] [address] [id number] [address] [place] [address] Dec, [facility] [address] [id number] [address] [place] [address], [place] [address] Dec, [facility] [address] [id number] [address] [place] [address], [place] [address] Dec, [facility] [address] [id number] [address] [place] [address], [place] [id number] Dec, [facility] [address] [id number] [address] [place] [address], [place] [address] Dec, [facility] [address] [id number] [address] [place] [address], [place] [id number] Dec, [facility] [address] [id number] [address] [place] [address], [place] [address] Dec, [facility] [address] [id number] [address] [place] [address], [place] [address] Dec, [facility] [address] [id number] [address] [place] [address], [place] [id number] Dec, [facility] [address] [id number] [address] [place] [address], [place] [address] Dec, [facility] [address] [id number] [address] [place] [address], [place] [address] Nov, [facility] [address] [id number] [address] [place] [address], [place] [address] Nov, [facility] [address] [id number] [address] [place] [address], [place] [address] Nov, [facility] [address] [id number] [address] [place] [address], [place] [address] Nov, [facility] [address] [id number] [address] [place] [address], [place] [address] Nov, [facility] [address] [id number] [address] [id number] 08 Nov, 2013 [facility] [address] [id number] [facility] [place] [address] Nov, [facility] [address] [id number] [facility] [place] [address] Nov, [facility] [address] [id number] [address] [place] [address], [place] [address] Nov, [facility] [address] [id number] [address] [place] [address], [place] [address] Nov, [facility] [address] [id number] [address] [place] [address], [place] [address] Oct, [facility] [address] [id number] [address] [place] [address], [place] [address] Oct, [facility] [address] [id number] [address] [place] [address], [place] [address] Oct, [facility] [address] [id number] [address] [place] [address], [place] [address] Oct, [facility] [address] [id number] [address] [place] [address], [place] [address] Oct, [facility] [address] [id number] [address] [place] [address], [place] [address] Oct, [facility] [address] [id number] [address] [place] [address], [place] [address] Oct, [facility] [address] [id number] [address] [place] [address], [place] [address] Oct, [facility] [address] [id number] [address] [place] [address], [place] [address] Oct, [facility] [address] [id number] [address] [place] [address], [place] [address] Oct, [facility] [address] [id number] [address] [place] [address], [place] [address] Oct, [facility] [address] [id number] [address] [place] [address], [place] [address] Oct, [facility] [address] [id number] [address] [place] [address], [place] [address] Oct, [facility] [address] [id number] [address] [place] [address] [id number] Oct, [facility] [address] [id number] [address] [place] [address], [place] [address] Sep, [facility] [address] [id number] [address] [place] [address], [place] [address] Sep, [facility] [address] [id number] [address] [place] [address], [place] [address] Sep, [facility] [address] [id number] [address] [place] [address], [place] [id number] Sep, [facility] [address] [id number] [address] [place] [address], [place] [address] Sep, [facility] [address] [id number] [address] [place] [address], [place] [address] Sep, [facility] [place] [address] [id number] [address] [place] [address], [place] [address] Sep, [facility] [address] [id number] [address] [place] [address], [place] [id number] Sep, [facility] [address] [id number] [address] [place] [address], [place] [address] Sep, [facility] [address] [id number] [address] [place] [address], [place] [id number] Sep, [facility] [address] [id number] [address] [place] [address], [place] [address] Aug, [facility] [address] [id number] [address] [place] [address], [place] [address] Aug, [facility] [address] [id number] [address] [place] [address], [place] [address] Jul, [facility] [address] [id number] [address] [place] [address], [place] [address] Jul, [facility] [address] [id number] [address] [place] [address], [place] [address] Jul, [facility] [address] [id number] [address] [place] [address], [place] [address] Jul, [facility] [address] [id number] [address] [place] [address], [place] [address] Jul, [facility] [address] [id number] [address] [place] [address], [place] [address] Jul, [facility] [place] [address] [id number] [address] [place] [address], [place] [address] Jul, [facility] [address] [id number] [address] [place] [address], [place] [id number] Jul, [facility] [address] [id number] [address] [place] [address], [place] [address] Jul, [facility] [address] [id number] [address] [place] [id number] Jul, [facility] [address] [id number] [address] [place] [id number] Jul, [facility] [address] [id number] [address] [place] [id number] Jul, [facility] [address] [id number] [address] [place] [address], [place] [address] Jul, [facility] [address] [id number] [address] [place] [id number] Jul, [facility] [address] [id number] [address] [place] [id number] Jul, [facility] [address] [id number] [address] [place] [id number] Jul, [facility] [address] [id number] [address] [place] [address], [place] [address] Jul, [facility] [address] [id number] [address] [place] [id number] Jul, [facility] [address] [id number] [address] [place] [id number] Jul, [facility] [address] [id number] [address] [place] [id number] Jun, 2012 [facility] [address] [id number] [address] [place] [address], [place] [address] Jun, [facility] [address] [id number] [address] [place] [id number] Jun, [facility] [address] [id number] [address] [place] [id number] Jun, [facility] [address] [id number] [address] [place] [id number] Jun, [facility] [address] [id number] [address] [place] [id number] Jun, [facility] [address] [id number] [address] [place] [id number] Jun, [facility] [address] [id number] [address] [place] [id number] Jun, [facility] [address] [id number] [address] [place] [id number] Jun, [facility] [address] [id number] [address] [place] [id number] Jun, [facility] [address] [id number] [address] [place] [id number] Jun, [facility] [address] [id number] [address] [place] [id number] May, [facility] [address] [id number] [facility] [address] 25 May, 2012 [facility] [address] [id number] [address] [place] [address], [place] [address] 19 May, 2012 [facility] [address] [id number] [address] [place] [address], [place] [address] 17 May, 2012 [facility] [address] [id number] [address] [place] [address], [place] [address] 11 May, 2012 [facility] [address] [id number] [address] [place] [address], [place] [address] 10 May, 2012 [facility] [address] [id number] [address] [place] [address], [place] [address] 09 May, 2013 [facility] [address] [id number] [address] [place] [address], [place] [address] 05 May, 2012 [facility] [address] [id number] [address] [place] [address], [place] [address] Apr, [facility] [address] [id number] [address] [place] [address], [place] [address] Apr, [facility] [address] [id number] [address] [place] [address], [place] [address] Apr, [facility] [address] [id number] [address] [place] [address], [place] [address] Apr, [facility] [address] [id number] [address] [place] [address], [place] [address] Apr, [facility] [address] [id number] [address] [place] [address], [place] [address] Mar, [facility] [address] [id number] [address] [place] [address], [place] [id number] Mar, [facility] [address] [id number] [address] [place] [address], [place] [address] Mar, [facility] [address] [id number] [address] [place] [address], [place] [address] Mar, [facility] [address] [id number] [address] [place] [address], [place] [address] Mar, [facility] [address] [id number] [address] [place] [address], [place] [address] Mar, [facility] [address] [id number] [address] [place] [address], [place] [address] Mar, [facility] [address] [id number] [address] [place] [address], [place] [address] Mar, [facility] [address] [id number] [address] [place] [address], [place] [address] Feb, [facility] [address] [id number] [address] [place] [address], [place] [address] Feb, [facility] [address] [id number] [address] [place] [address], [place] [address] January, [facility] [address] [id number] [address] [place] [address], [place] [address] January, [facility] [address] [id number] [address] [place] [address], [place] [address] Dec, [facility] [address] [id number] [address] [place] [address], [place] [address] Dec, [facility] [address] [id number] [address] [place] [address], [place] [address] Nov, [facility] [address] [id number] [address] [place] [address], [place] [address] Nov, [facility] [address] [id number] [address] [place] [address], [place] [address] Nov, [facility] [address] [id number] [address] [place] [address], [place] [address] Nov, [facility] [address] [id number] [address] [place] [address], [place] [address] Oct, [facility] [address] [id number] [address] [place] [address], [place] [address] Oct, 2012 [facility] [address] [id number] [address] [place] [address], [place] [address] Oct, 2012 [facility] [address] [id number] [address] [place] [address], [place] [address] 26 Oct, 2012 [facility] [address] [id number] [address] [place] [address], [place] [address] 16 Oct, 2012 [facility] [address] [id number] [address] [place] [address], [place] [address] 14 Oct, 2012 [facility] [address] [id number] [address] [place] [address], [place] [id number] 08 Oct, 2012 [facility] [address] [id number] [address] [place] [address], [place] [address] 07 Oct, 2012 [facility] [address] [id number] [address] [place] [address], [place] [address] 03 Oct, 2012 [facility] [address] [id number] [address] [place] [address], [place] [address] 30 Sep, 2012 [facility] [address] [id number] [address] [place] [address], [place] [address] Sep, [facility] [address] [id number] [address] [place] [address], [place] [address] Sep, [facility] [address] [id number] [address] [place] [address], [place] [address] Sep, [facility] [address] [id number] [address] [place] [address], [place] [address] 17 Sep, 2012 [facility] [address] [id number] [address] [place] [address], [place] [address] Sep, [facility] [address] [id number] [address] [place] [address], [place] [address] 09 Sep, 2012 [facility] [address] [id number] [address] [place] [address], [place] [address] Sep, [facility] [address] [id number] [address] [place] [address], [place] [address] Aug, [facility] [address] [id number] [address] [place] [address], [place] [address] Aug, [facility] [address] [id number] [address] [place] [address], [place] [address] Aug, [facility] [address] [id number] [address] [place] [address], [place] [address] Aug, [facility] [address] [id number] [address] [place] [address], [place] [address] Aug, [facility] [address] [id number] [address] [place] [address], [place] [address] Aug, [facility] [address] [id number] [address] [place] [address], [place] [address] Aug, [facility] [address] [id number] [address] [place] [address], [place] [address] Aug, [facility] [address] [id number] [address] [place] [address], [place] [address] Jul, [facility] [address] [id number] [address] [place] [address], [place] [address] Jul, [facility] [address] [id number] [address] [place] [address], [place] [address] Jul, [facility] [address] [id number] [address] [place] [address], [place] [address] Jul, [facility] [address] [id number] [address] [place] [address], [place] [address] Jul, [facility] [address] [id number] [address] [place] [address], [place] [address] Jul, [facility] [address] [id number] [address] [place] [address], [place] [address] Jun, [facility] [address] [id number] [address] [place] [address], [place] [address] 25 Jun, 2012 [facility] [address] [id number] [address] [place] [address], [place] [address] Jun, [facility] [address] [id number] [address] [place] [address], [place] [address] Jun, [facility] [address] [id number] [address] [place] [address], [place] [address] Jun, [facility] [address] [id number] [address] [place] [address], [place] [address] Jun, [facility] [address] [id number] [address] [place] [address], [place] [address] 19 Jun, 2012 [facility] [address] [id number] [address] [place] [address], [place] [address] 10 Jun, 2012 [facility] [address] [id number] [address] [place] [address], [place] [address] 10 Jun, 2012 [facility] [address] [id number] [address] [place] [address], [place] [address] 26 May, 2012 [facility] [address] [id number] [address] [place] [address], [place] [address] 24 May, 2012 [facility] [address] [id number] [address] [place] [address], [place] [address] 18 May, 2012 [facility] [address] [id number] [address] [place] [address], [place] [address] 30 Apr, 2012 [facility] [address] [id number] [address] [place] [address], [place] [address] 29 Apr, 2012 [facility] [address] [id number] [address] [place] [address], [place] [address] 18 Apr, 2012 [facility] [address] [id number] [address] [place] [address], [place] [address] 14 Apr, 2012 [facility] [address] [id number] [address] [place] [address], [place] [address] 10 Apr, 2012 [facility] [address] [id number] [address] [place] [address], [place] [address] Apr, [facility] [address] [id number] [address] [place] [address], [place] [address] Mar, [facility] [address] [id number] [address] [place] [address], [place] [address] Mar, [facility] [address] [id number] [address] [place] [address], [place] [address] Mar, [facility] [address] [id number] [address] [place] [address], [place] [address] Mar, [facility] [address] [id number] [address] [place] [address], [place] [address] Feb, [facility] [address] [id number] [address] [place] [address], [place] [address] Feb, [facility] [address] [id number] [address] [place] [address], [place] [address] Feb, [facility] [address] [id number] [address] [place] [address], [place] [address] Feb, [facility] [address] [id number] [address] [place] [address], [place] [address] Feb, [facility] [address] [id number] [address] [place] [address], [place] [address] January, [facility] [address] [id number] [address] [place] [address], [place] [address] January, [facility] [address] [id number] [address] [place] [address], [place] [address] January, [facility] [address] [id number] [address] [place] [address], [place] [address] January, [facility] [address] [id number] [address] [place] [address], [place] [address] January, [facility] [address] [id number] [address] [place] [address], [place] [address] January, [facility] [address] [id number] [address] [place] [address], [place] [address] Dec, [facility] [address] [id number] [address] [place] [address], [place] [id number] 24 Dec, 2011 [facility] [address] [id number] [address] [place] [address], [place] [address] 17 Dec, 2011 [facility] [address] [id number] [address] [place] [address], [place] [address] Dec, [facility] [address] [id number] [address] [place] [address], [place] [id number] Dec, [facility] [address] [id number] [address] [place] [address], [place] [address] 27 Nov, 2011 [facility] [address] [id number] [address] [place] [address], [place] [id number] 14 Nov, 2011 [facility] [address] [id number] [address] [place] [address], [place] [address] Nov, [facility] [address] [id number] [address] [place] [address], [place] [address] 07 Nov, 2011 [facility] [address] [id number] [address] [place] [address], [place] [address] 29 Oct, 2011 [facility] [address] [id number] [address] [place] [address], [place] [address] Oct, [facility] [address] [id number] [address] [place] [address], [place] [address] 24 Oct, 2011 [facility] [address] [id number] [address] [place] [address], [place] [address] 13 Oct, 2011 [facility] [address] [id number] [address] [place] [address], [place] [address] 08 Oct, 2011 [facility] [address] [id number] [address] [place] [address], [place] [address] Sep, [facility] [address] [id number] [address] [place] [address], [place] [address] Sep, [facility] [address] [id number] [address] [place] [address], [place] [address] Sep, [facility] [address] [id number] [address] [place] [address], [place] [address] Sep, [facility] [address] [id number] [address] [place] [address], [place] [id number] Sep, [facility] [address] [id number] [address] [place] [address], [place] [id number] Sep, [facility] [address] [id number] [address] [place] [address], [place] [id number] Aug, [facility] [address] [id number] [address] [place] [address], [place] [id number] Aug, [facility] [address] [id number] [address] [place] [address], [place] [address] Aug, [facility] [address] [id number] [address] [place] [address], [place] [address] Jul, [facility] [address] [id number] [address] [place] [address], [place] [id number] Jul, [facility] [address] [id number] [address] [place] [address], [place] [id number] Jul, [facility] [address] [id number] [address] [place] [address], [place] [id number] Jul, [facility] [address] [id number] [address] [place] [address], [place] [id number] Jun, [facility] [address] [id number] [address] [place] [address], [place] [id number] Jun, [facility] [address] [id number] [address] [place] [address], [place] [id number] 18 Jun, 2011 [facility] [address] [id number] [address] [place] [address] [id number] 10 Jun, 2011 [facility] [address] [id number] [address] [place] [address], [place] [id number] 10 Jun, 2011 [facility] [address] [id number] [address] [place] [address], [place] [id number] 10 Jun, 2011 [facility] [address] [id number] [address] [place] [address], [place] [id number] 11 Mar, 2011 [facility] [address] [id number] [address] [place] [address], [place] [id number] 18 Dec, 2010 [facility] [address] [id number] [address] [place] [address], [place] [id number] 11 Dec, 2010 [facility] [address] [id number] [address] [place] [address], [place] [id number] 18 Nov, 2010 [facility] [address] [id number] [address] [place] [address], [place] [id number] 16 Nov, 2010 [facility] [address] [id number] [address] [place] [address], [place] [id number] 10 Sep, 2010 [facility] [address] [id number] [address] [place] [address], [place] [id number] 31 Aug, 2010 [facility] [address] [id number] [address] [place] [address], [place] [id number] 29 Aug, 2010 [facility] [address] [id number] [address] [place] [address], [place] [id number] 29 Aug, 2010 [facility] [address] [id number] [address] [place] [address], [place] [id number] 29 Aug, 2010 [facility] [address] [id number] [address] [place] [address], [place] [id number] 27 Aug, 2010 [facility] [address] [id number] [address] [place] [address], [place] [id number] 14 Aug, 2010 [facility] [address] [id number] [address] [place] [address], [place] [id number] 08 Aug, 2010 [facility] [address] [id number] [address] [place] [address], [place] [id number] 08 Aug, 2010 [facility] [address] [id number] [address] [place] [address], [place] [id number] 07 Aug, 2010 [facility] [address] [id number] [address] [place] [address], [place] [id number] Aug, [facility] [address] [id number] [address] [place] [address], [place] [id number] Aug, [facility] [address] [id number] [address] [place] [address], [place] [id number] Aug, [facility] [address] [id number] [address] [place] [address], [place] [id number] Jul, [facility] [address] [id number] [address] [place] [address], [place] [id number] Jul, [facility] [address] [id number] [address] [place] [address], [place] [id number] Jul, [facility] [address] [id number] [address] [place] [address], [place] [id number] Jul, [facility] [address] [id number] [address] [place] [address], [place] [id number] Jul, [facility] [address] [id number] [address] [place] [address], [place] [id number] Jul, [facility] [address] [id number] [address] [place] [address], [place] [id number] 24 Jun, 2010 [facility] [address] [id number] [address] [place] [id number] Jun, [facility] [address] [id number] [address] [place] [address], [place] [id number] Jun, [facility] [address] [id number] [address] [place] [address], [place] [id number] Jun, [facility] [address] [id number] [address] [place] [id number] 16 Apr, 2010 [facility] [address] [id number] [address] [place] [address], [place] [id number] Mar, [facility] [address] [id number] [address] [place] [address], [place] [id number] Feb, [facility] [address] [id number] [address] [place] [address], [place] [id number] January, [facility] [address] [id number] [address] [place] [address], [place] [id number] 15 Dec, 2009 [facility] [address] [id number] [address] [place] [address], [place] [id number] Nov, [facility] [address] [id number] [address] [place] [address], [place] [id number] Aug, [facility] [address] [id number] [address] [place] [address], [place] [id number] Aug, [facility] [address] [id number] [address] [place] [address], [place] [id number] Aug, [facility] [address] [id number] [address] [place] [address], [place] [id number] Jul, [facility] [address] [id number] [address] [place] [address], [place] [id number] Jul, [facility] [place] [address] [id number] [address] [place] [address], [place] [id number] Jul, [facility] [address] [id number] [address] [place] [id number] 30 Jun, 2009 [facility] [address] [id number] [address] [place] [address], [place] [id number] Jun, [facility] [address] [id number] [address] [place] [address], [place] [id number] Jun, [facility] [address] [id number] [address] [place] [phone] Jun, [facility] [address] [id number] [address] [place] [id number] Jun, [facility] [address] [facility] [id number] [address] [place] [id number] Jun, [facility] [address] [facility] [id number] [address] [place] [id number] Apr, [facility] [address] [facility] [id number] [address] [place] [phone] Apr, [facility] [address] [facility] [id number] [address] [place] [phone] Feb, [facility] [address] [facility] [id number] [address] [place] [phone] January, [facility] [address] [facility] [id number] [address] [place] [phone] Dec, IMMUNIZATIONS No Known Immunizations SOCIAL HISTORY [...]
--- OUTSIDE RECORDS SUMMARY | 2020-03-01 17:09 | XMS REPORT ---
Author Author Michele WASHBURN Organization [facility] Address [address] [place] [address] Care Team Providers Care No Experience Name Role Phone NOEMI WASHBURN Unavailable PROBLEMS Type Condition ICD9-CM Code MOK01-WI Code Onset Dates Condition S tatus SNOMED Code Problem Cough R05 Active 27546472 Problem Benign prostatic hyperplasia with lower urinary tract symptoms, unspecified morphology N40.1 Active 11359 6007 Problem Eustachian tube dysfunction, unspecified laterality H69.80 Active 64414667 Problem Chronic pain G89.29 Active 0498294 1 Problem DM neuro manif type II E11.49 Active 99347094 Problem Diabetes E11.9 Active 17157540 Problem Leukocytosis D72.829 Active 9885310 06 Problem Falling R29.6 Active 957950683 Problem Pressure ulcer of other site, stage 3 L89.893 Active 626437626 Problem 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 Active 905725274 Problem Eye exam abnormal R93.8 Active 16 3919186 Problem Dysuria R30.0 Active 09311139 Problem Hypokalemia E87.6 Active 78072224 Problem Morbid obesity E66.01 Active 24623 6002 Problem Anxiety F41.9 Active 95278924 Problem Diabetic polyneuropathy associated with type 2 d iabetes mellitus E11.42 Active 11499856 Problem Essential hypertension I10 Active 73356205 Problem Bilateral primary osteoarthritis of knee M17.0 Active 874803491 Problem Polyneuropathy associated with underlying disease G63 Active 194060148 Problem Anemia of chronic illness D63.8 Acti ve 303872941 Problem Lymphocytosis D72.820 Active 699484 09 Problem Retinal edema H35.81 Active 663652 6 Problem Chronic lymphocytic leukemia C91.10 A ctive 52193176 Problem Bipolar disorder, in partial remission, most rec ent episode depressed F31.75 Active 07412456 Problem Pure hypercholesterolemia E78.00 Acti ve 231540111 Problem Primary osteoarthritis of right knee M17.11 Active 720448350138200 Problem Bipolar disorder F31.9 Active 137 59245 Problem Bipolar I disorder, most recent episode (or curr ent) mixed, moderate F31.62 Active 72945217 Problem Chronic diastolic (congestive) heart failure I50.3 2 Active 392942283 Problem Reactive airway disease J45.909 Active 038754284217 Problem Insomnia, unspecified type G47.00 Act sharon 196416723 Problem Other chronic pain G89.29 Active 8 6190953 Problem Other iron deficiency anemia D50.8 A ctive 71131105 Problem Mild cognitive impairment G31.84 Acti ve 670545235 Problem Skin cancer C44.90 Active 58308389 7 ALLERGIES No Information ENCOUNTERS Encounter Location Date Diagnosis [facility] [address] [facility] [id number] [address] [place] [phone] Sep, [facility] [address] [facility] [id number] [address] [place] [phone] Jun, [facility] [address] [facility] [id number] [address] [place] [phone] Jun, [facility] [address] [facility] [id number] [address] [place] [phone] Jun, [facility] [address] [facility] [id number] [address] [place] [phone] Jun, [facility] [address] [facility] [id number] [address] [place] [address] Jun, Bipolar disorder F31.9 [facility] [address] [facility] [id number] [address] [place] [address] May, Bipolar disorder, in partial remission, most recent episode depressed F31.75 and Mild cognitive impairment G31.84 [facility] [address] [facility] [id number] [address] [place] [address] May, [facility] [address] [facility] [id number] [address] [place] [address] Apr, Chronic pain G89.29 and Bipo lar disorder F31.9 [place] [address] [id number] [address] [place] [address] Mar, Bipolar disorder F31.9 and C hronic pain G89.29 [facility] [address] [id number] [address] [place] [phone] Feb, Bipolar disorder F31.9 [facility] [address] [id number] [address] [place] [address] Feb, Cellulitis of right upper ex tremity L03.113 and Skin abrasion T14.8XXA [facility] [address] [id number] [address] [place] [address] Feb, Bipolar disorder, in partial remission, most recent episode depressed F31.75 and Mild cognitive impairment G31.84 [facility] [address] [id number] [address] [place] [address] Feb, Chronic pain G89.29 [facility] [address] [id number] [address] [place] [address] Feb, Bipolar disorder, in partial remission, most recent episode depressed F31.75 and Mild cognitive impairment G31.84 [facility] [address] [id number] [address] [place] [address] January, Bipolar disorder, in partial remission, most recent episode depressed F31.75 and Mild cognitive impairment G31.84 [facility] [address] [id number] [address] [place] [phone] January, Chronic pain G89.29 and Bipo lar disorder F31.9 [facility] [address] [id number] [address] [place] [phone] January, Bipolar disorder, in partial remission, most recent episode depressed F31.75 and Mild cognitive impairment G31.84 [facility] [address] [id number] [address] [place] [address] Dec, [facility] [address] [facility] [id number] [address] [place] [address] Dec, Chronic pain G89.29 and Bipo lar disorder F31.9 [facility] [address] [facility] [id number] [address] [place] [address] 17 Dec, 2018 Edema of both lower extremit ies R60.0 [place] [address] [facility] [id number] [address] [place] [phone] 15 Dec, 2018 Bipolar disorder F31.9 [place] [address] [facility] [id number] [address] [place] [address] Dec, Bipolar disorder, in partial remission, most recent episode depressed F31.75 and Mild cognitive impairment G31.84 [place] [address] [facility] [id number] [address] [place] [phone] Nov, [place] [address] [place] [id number] [address] [place] [phone] Nov, Chronic pain G89.29 [place] [address] [place] [id number] [address] [place] [address] Nov, Bipolar disorder, in partial remission, most recent episode depressed F31.75 and Mild cognitive impairment G31.84 [place] [address] [facility] [id number] [address] [place] [phone] Nov, Bipolar disorder F31.9 [place] [address] [place] [id number] [address] [place] [phone] 04 Nov, 2018 [facility] Z00.00 ; Polyneuropathy associated with [...] unspecified morphology N40.1 and Essential hypertension I10 [place] [address] [facility] [id number] [address] [place] [phone] Oct, Chronic pain G89.29 [facility] [address] [facility] [id number] [address] [place] [address] Oct, Diabetes E11.9 [facility] [address] [facility] [id number] [address] [place] [address] Oct, Bipolar I disorder, most rec ent episode (or current) mixed, moderate F31.62 and Mild cognitive impairment G31.84 [place] [address] [facility] [id number] [address] [place] [address] Oct, Bipolar I disorder, most rec ent episode (or current) mixed, moderate F31.62 and Mild cognitive impairment G31.84 [place] [address] [facility] [id number] [address] [place] [address] Sep, Bipolar I disorder, most rec ent episode (or current) mixed, moderate F31.62 and Mild cognitive impairment G31.84 [place] [address] [place] [id number] [address] [place] [phone] Sep, [place] [address] [facility] [id number] [address] [place] [address] Sep, Diabetes E11.9 ; Hypoxia R09 .02 ; Hyperglycemia R73.9 ; Therapeutic drug monitoring Z51.81 ; BMI 50.0-59.9, adult Z68.43 and Skin cancer C44.90 [place] [address] [facility] [id number] [address] [place] [phone] Sep, Chronic pain G89.29 [place] [address] [facility] [id number] [address] [place] [address] Sep, Bipolar I disorder, most rec ent episode (or current) mixed, moderate F31.62 [place] [address] [facility] [id number] [address] [place] [address] Sep, [place] [address] [place] [id number] [address] [place] [phone] Sep, [facility] [address] [id number] [address] [place] [address] Aug, Chronic pain G89.29 [facility] [address] [facility] [id number] [address] [place] [phone] Aug, Bipolar I disorder, most rec ent episode (or current) mixed, moderate F31.62 [facility] [address] [facility] [id number] [address] [place] [phone] Aug, Bipolar I disorder, most rec ent episode (or current) mixed, moderate F31.62 and Mild cognitive impairment G31.84 [facility] [address] [id number] [address] [place] [phone] Jul, [facility] [address] [facility] [id number] [address] [place] [address] Jul, Chronic pain G89.29 [facility] [address] [facility] [id number] [address] [place] [address] Jul, Bipolar I disorder, most rec ent episode (or current) mixed, moderate F31.62 and Mild cognitive impairment G31.84 [facility] [address] [facility] [id number] [address] [place] [phone] Jul, Bipolar I disorder, most rec ent episode (or current) mixed, moderate F31.62 and MCI (mild cognitive impairment) G31.84 [facility] [address] [facility] [id number] [address] [place] [phone] Jul, [facility] [address] [id number] [address] [place] [phone] Jul, [facility] [address] [facility] [id number] [address] [place] [phone] Jul, Bipolar I disorder, most rec ent episode (or current) mixed, moderate F31.62 [facility] [address] [facility] [id number] [address] [place] [phone] Jul, Chronic pain G89.29 [facility] [address] [facility] [id number] [address] [place] [phone] Jun, Bipolar I disorder, most rec ent episode (or current) mixed, moderate F31.62 [facility] [address] [id number] [address] [place] [address] Jun, Pre-procedure lab exam Z01.8 12 [facility] [address] [id number] [address] [place] [phone] Jun, [facility] [address] [id number] [place] [id number] Jun, [facility] [address] [facility] [id number] [address] [place] [phone] Jun, [facility] [address] [facility] [id number] [address] [place] [phone] Jun, Forgetfulness R68.89 ; Pre-s yncope R55 ; Localized edema R60.0 ; Other iron deficiency anemia D50.8 and BMI 50.0-59.9, adult Z68.43 [facility] [address] [facility] [id number] [address] [place] [phone] Jun, Chronic pain G89.29 [facility] [address] [facility] [id number] [address] [place] [address] Jun, Chronic pain G89.29 [facility] [address] [facility] [id number] [address] [place] [phone] Jun, Bipolar I disorder, most rec ent episode (or current) mixed, moderate F31.62 [facility] [address] [facility] [id number] [address] [place] [address] May, Chronic pain G89.29 [facility] [address] [facility] [id number] [address] [place] [phone] Apr, [facility] [address] [facility] [id number] [address] [place] [address] Apr, Chronic pain G89.29 [facility] [address] [place] [id number] [address] [place] [address] Apr, Primary osteoarthritis of ri ght knee M17.11 [place] [address] [place] [id number] [address] [place] [phone] Mar, [place] [address] [place] [id number] [address] [place] [phone] Mar, BMI 50.0-59.9, adult Z68.43 and Bipolar disorder, in partial remission, most recent episode depressed F31.75 [place] [address] [place] [id number] [address] [place] [address] Mar, Diabetes E11.9 ; Pure hyperc holesterolemia E78.00 ; Essential hypertension I10 ; Nausea with vomiting, unspecified R11.2 and Headache, unspecified headache type R51 [place] [address] [place] [id number] [address] [place] [phone] Mar, Bipolar I disorder, most rec ent episode (or current) mixed, moderate F31.62 [place] [address] [place] [id number] [address] [place] [phone] Mar, Bipolar I disorder, most rec ent episode (or current) mixed, moderate F31.62 [place] [address] [place] [id number] [address] [place] [address] Mar, Chronic pain G89.29 [place] [address] [place] [id number] [address] [place] [phone] Mar, Bipolar I disorder, most rec ent episode (or current) mixed, moderate F31.62 [place] [address] [facility] [id number] [address] [place] [phone] 18 Feb, 2018 Bipolar I disorder, most rec ent episode (or current) mixed, moderate F31.62 [place] [address] [facility] [id number] [address] [place] [phone] 14 Feb, 2018 Chronic pain G89.29 [place] [address] [place] [id number] [address] [place] [phone] Feb, Decubitus ulcer of right josselin t, stage 3 L89.893 and BMI 50.0-59.9, adult Z68.43 [facility] [address] [facility] [id number] [address] [place] [phone] Feb, Bipolar I disorder, most rec ent episode (or current) mixed, moderate F31.62 [facility] [address] [place] [id number] [address] [place] [phone] Feb, [place] [address] [facility] [id number] [address] [place] [phone] January, [place] [address] [facility] [id number] [address] [place] [address] January, Chronic pain G89.29 [place] [address] [place] [id number] [address] [place] [phone] January, Bipolar I disorder, most rec ent episode (or current) mixed, moderate F31.62 [place] [address] [facility] [id number] [address] [place] [phone] January, Bipolar I disorder, most rec ent episode (or current) mixed, moderate F31.62 [place] [address] [facility] [id number] [address] [place] [phone] Dec, Bipolar I disorder, most rec ent episode (or current) mixed, moderate F31.62 and BMI 50.0-59.9, adult Z68.43 [place] [address] [facility] [id number] [address] [place] [address] Dec, Bipolar I disorder, most rec ent episode (or current) mixed, moderate F31.62 [place] [address] [facility] [id number] [address] [place] [address] Dec, Chronic pain G89.29 [facility] [address] [facility] [id number] [address] [place] [phone] Dec, DM neuro manif type II E11.4 9 ; Right flank pain R10.9 ; alf 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 Z79.891 ; Encounter for medication monitoring Z51.81 and BMI 50.0-59.9, adult Z68.43 [place] [address] [place] [id number] [address] [place] [id number] Dec, Bipolar I disorder, most rec ent episode (or current) mixed, moderate F31.62 [place] [address] [place] [id number] [address] [place] [phone] Nov, Bipolar I disorder, most rec ent episode (or current) mixed, moderate F31.62 [place] [address] [place] [id number] [address] [place] [phone] Nov, Chronic pain G89.29 [place] [address] [place] [id number] [place] [address] Nov, Bipolar I disorder, most rec ent episode (or current) mixed, moderate F31.62 [place] [address] [place] [id number] [address] [place] [phone] Nov, Hypokalemia E87.6 [place] [address] [place] [id number] [place] [phone] Nov, Bipolar I disorder, most rec ent episode (or current) mixed, moderate F31.62 [place] [address] [place] [id number] [address] [place] [address] Oct, Chronic pain G89.29 [place] [address] [place] [id number] [address] [place] [phone] Oct, BMI 50.0-59.9, adult Z68.43 and Bipolar I disorder, most recent episode (or current) mixed, moderate F31.62 [place] [address] [place] [id number] [address] [place] [address] Oct, Bipolar I disorder, most rec ent episode (or current) mixed, moderate F31.62 [place] [address] [place] [id number] [address] [place] [phone] Oct, [facility] [address] [facility] [id number] [address] [place] [phone] Oct, Hypokalemia E87.6 [facility] [address] [facility] [id number] [address] [place] [address] Oct, DM neuro manif type II E11.4 9 [facility] [address] [facility] [id number] [address] [place] [address] Oct, Bipolar I disorder, most rec ent episode (or current) mixed, moderate F31.62 [facility] [address] [facility] [id number] [address] [place] [phone] Oct, Bipolar I disorder, most rec ent episode (or current) mixed, moderate F31.62 [facility] [address] [facility] [id number] [address] [place] [address] Oct, Hyperkalemia E87.5 ; Falling R29.6 ; BMI 50.0-59.9, adult Z68.43 and Acute left ankle pain M25.572 [facility] [address] [facility] [id number] [address] [place] [address] Oct, DM neuro manif type II E11.4 9 [facility] [address] [facility] [id number] [address] [place] [address] Oct, [facility] [address] [facility] [id number] [address] [place] [phone] Sep, Chronic pain G89.29 [facility] [address] [facility] [id number] [address] [place] [address] Sep, [facility] [address] [place] [id number] [address] [place] [phone] Sep, Bilateral primary osteoarthr itis of knee M17.0 [facility] [address] [facility] [id number] [address] [place] [address] Sep, Generalized edema R60.1 [place] [address] [place] [id number] [address] [place] [phone] 16 Sep, 2017 Bipolar I disorder, most rec ent episode (or current) mixed, moderate F31.62 [place] [address] [place] [id number] [address] [place] [address] 15 Sep, 2017 Hypoxia R09.02 ; Other hyper volemia E87.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 ; Anemia of chronic illness D63.8 and BMI 50.0- 59.9, adult Z68.43 [place] [address] [address] 03 Sep, 2017 [place] [address] [address] Sep, Bipolar I disorder, most rec ent episode (or current) mixed, moderate F31.62 [place] [address] [phone] 28 Aug, 2017 Chronic pain G89.29 [place] [address] [phone] 27 Aug, 2017 Generalized edema R60.1 [place] [address] [address] 18 Aug, 2017 [place] [address] [address] 18 Aug, 2017 [place] [address] [place] [id number] [place] [phone] 14 Aug, 2017 Bipolar I disorder, most rec ent episode (or current) mixed, moderate F31.62 [place] [address] [place] [id number] [address] [place] [phone] 07 Aug, 2017 Bipolar I disorder, most rec ent episode (or current) mixed, moderate F31.62 [place] [address] [address] Aug, Chronic pain G89.29 [facility] [address] [id number] [address] [place] [address] Jul, Bipolar I disorder, most rec ent episode (or current) mixed, moderate F31.62 [facility] [address] [id number] [address] [place] [address] Jul, Bipolar I disorder, most rec ent episode (or current) mixed, moderate F31.62 and BMI 60.0-69.9, adult Z68.44 [facility] [address] [facility] [id number] [address] [place] [phone] Jul, Bipolar I disorder, most rec ent episode (or current) mixed, moderate F31.62 [facility] [address] [id number] [address] [place] [address] Jul, Chronic pain G89.29 [facility] [address] [facility] [id number] [address] [place] [id number] Jul, Bipolar I disorder, most rec ent episode (or current) mixed, moderate F31.62 [facility] [address] [facility] [id number] [address] [place] [id number] Jun, Polyneuropathy associated wi th underlying disease G63 and Diabetes E11.9 [facility] [address] [id number] [address] [place] [id number] Jun, Bipolar I disorder, most rec ent episode (or current) mixed, moderate F31.62 [facility] [address] [id number] [address] [place] [id number] Jun, Chronic pain G89.29 [facility] [address] [facility] [id number] [address] [place] [id number] May, Bipolar I disorder, most rec ent episode (or current) mixed, moderate F31.62 [facility] [address] [facility] [id number] [address] [place] [phone] May, Bipolar I disorder, most rec ent episode (or current) mixed, moderate F31.62 [facility] [address] [id number] [address] [place] [phone] 20 May, 2017 Diabetic polyneuropathy asso ciated with type 2 diabetes mellitus E11.42 [facility] [address] [id number] [address] [place] [phone] 18 May, 2017 Bipolar I disorder, most rec ent episode (or current) mixed, moderate F31.62 [facility] [address] [id number] [address] [place] [phone] 13 May, 2017 Bipolar I disorder, most rec ent episode (or current) mixed, moderate F31.62 [facility] [address] [id number] [address] [place] [phone] 12 May, 2017 Chronic pain G89.29 [facility] [address] [facility] [id number] [address] [place] [phone] 30 Apr, 2017 Bipolar I disorder, most rec ent episode (or current) mixed, moderate F31.62 [facility] [address] [id number] [address] [place] [phone] Apr, [facility] [address] [id number] [address] [place] [phone] Apr, Chronic pain G89.29 and DM n euro manif type II E11.49 [facility] [address] [id number] [address] [place] [phone] Apr, [facility] [address] [facility] [id number] [address] [place] [phone] 16 Apr, 2017 Bipolar I disorder, most rec ent episode (or current) mixed, moderate F31.62 [facility] [address] [id number] [address] [place] [phone] 14 Apr, 2017 Chronic pain G89.29 [facility] [address] [facility] [id number] [address] [place] [phone] 03 Apr, 2017 Iliotibial band syndrome, le ft M76.32 [facility] [address] [facility] [id number] [address] [place] [phone] Apr, Bipolar I disorder, most rec ent episode (or current) mixed, moderate F31.62 [facility] [address] [facility] [id number] [address] [place] [phone] Mar, Bipolar I disorder, most rec ent episode (or current) mixed, moderate F31.62 [facility] [address] [facility] [id number] [address] [place] [phone] Mar, Bipolar I disorder, most rec ent episode (or current) mixed, moderate F31.62 [facility] [address] [facility] [id number] [address] [place] [phone] Mar, [facility] [address] [place] [id number] [address] [place] [phone] Mar, Bipolar I disorder, most rec ent episode (or current) mixed, moderate F31.62 [place] [address] [place] [id number] [address] [place] [phone] Mar, Chronic pain G89.29 [place] [address] [place] [id number] [address] [place] [phone] Mar, Bipolar I disorder, most rec ent episode (or current) mixed, moderate F31.62 [facility] [address] [place] [id number] [address] [place] [phone] Mar, Bipolar I disorder, most rec ent episode (or current) mixed, moderate F31.62 [facility] [address] [facility] [id number] [address] [place] [phone] Mar, Acute pain of left knee M25. 562 ; Left hip pain M25.552 ; Generalized edema R60.1 and Tongue swelling R22.0 [facility] [address] [facility] [id number] [address] [place] [phone] Mar, [facility] [address] [place] [id number] [address] [place] [phone] Feb, Chronic pain G89.29 [facility] [address] [facility] [id number] [address] [place] [phone] Feb, Diabetes E11.9 [facility] [address] [id number] [address] [place] [phone] January, Chronic pain G89.29 [facility] [address] [facility] [id number] [address] [place] [phone] January, [facility] [address] [facility] [id number] [address] [place] [phone] January, Bipolar I disorder, most rec ent episode (or current) mixed, moderate F31.62 [facility] [address] [facility] [id number] [address] [place] [phone] Dec, Bipolar I disorder, most rec ent episode (or current) mixed, moderate F31.62 [facility] [address] [facility] [id number] [address] [place] [phone] Dec, Chronic pain G89.29 [facility] [address] [facility] [id number] [address] [place] [phone] Dec, Bipolar I disorder, most rec ent episode (or current) mixed, moderate F31.62 [facility] [address] [facility] [id number] [address] [place] [address] Dec, Diabetes E11.9 ; Essential h ypertension I10 ; Chronic pain G89.29 and Morbid obesity E66.01 [facility] [address] [facility] [id number] [address] [place] [phone] Dec, [facility] [address] [facility] [id number] [address] [place] [phone] Dec, Bipolar I disorder, most rec ent episode (or current) mixed, moderate F31.62 [facility] [address] [facility] [id number] [address] [place] [phone] Dec, Bipolar I disorder, most rec ent episode (or current) mixed, moderate F31.62 [place] [address] [facility] [id number] [address] [place] [id number] Nov, Chronic pain G89.29 [facility] [address] [facility] [id number] [address] [place] [phone] Nov, Bipolar I disorder, most rec ent episode (or current) mixed, moderate F31.62 [facility] [address] [facility] [id number] [address] [place] [phone] Nov, [facility] [address] [facility] [id number] [address] [place] [phone] Nov, Bipolar I disorder, most rec ent episode (or current) mixed, moderate F31.62 [facility] [address] [facility] [id number] [address] [place] [phone] Nov, Bipolar I disorder, most rec ent episode (or current) mixed, moderate F31.62 [facility] [address] [place] [id number] [address] [place] [phone] Nov, [facility] [address] [facility] [id number] [address] [place] [phone] Nov, [facility] [address] [facility] [id number] [address] [place] [phone] Nov, [facility] [address] [place] [id number] [address] [place] [address] Oct, Chronic pain G89.29 [facility] [address] [place] [id number] [address] [place] [phone] Oct, Bipolar I disorder, most rec ent episode (or current) mixed, moderate F31.62 [facility] [address] [facility] [id number] [address] [place] [phone] Oct, [facility] [address] [place] [id number] [address] [place] [id number] 15 Oct, 2016 Chronic pain G89.29 ; Diabet es E11.9 ; Anxiety F41.9 and 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 [facility] [address] [id number] [address] [place] [phone] Oct, [facility] [address] [id number] [address] [place] [phone] Oct, Diabetes E11.9 [facility] [address] [id number] [address] [place] [id number] Oct, Bipolar I disorder, most rec ent episode (or current) mixed, moderate F31.62 [facility] [address] [id number] [address] [place] [phone] Sep, Chronic pain G89.29 [facility] [address] [id number] [address] [place] [address] Sep, Chronic pain G89.29 [facility] [address] [id number] [address] [place] [address] Aug, Chronic pain G89.29 [facility] [address] [id number] [address] [place] [phone] Jul, [facility] [address] [id number] [address] [place] [address] Jul, Diabetes E11.9 [facility] [address] [id number] [address] [place] [phone] Jul, Chronic pain G89.29 [facility] [address] [id number] [address] [place] [id number] Jul, Bipolar I disorder, most rec ent episode (or current) mixed, moderate F31.62 [facility] [address] [id number] [address] [place] [address] Jun, Bipolar I disorder, most rec ent episode (or current) mixed, moderate F31.62 [facility] [address] [id number] [address] [place] [phone] Jun, [facility] [address] [facility] [id number] [address] [place] [phone] Jun, Bipolar I disorder, most rec ent episode (or current) mixed, moderate F31.62 [facility] [address] [facility] [id number] [address] [place] [phone] 30 May, 2016 Insomnia, unspecified type G 47.00 [facility] [address] [facility] [id number] [address] [place] [phone] 22 May, 2016 Bipolar I disorder, most rec ent episode (or current) mixed, moderate F31.62 [place] [address] [facility] [id number] [address] [place] [phone] 14 May, 2016 [place] [address] [facility] [id number] [address] [place] [phone] 08 May, 2016 Bipolar I disorder, most rec ent episode (or current) mixed, moderate F31.62 [place] [address] [facility] [id number] [address] [place] [phone] 06 May, 2016 Diabetes E11.9 and Essential hypertension I10 [place] [address] [facility] [id number] [address] [place] [phone] Apr, Chronic pain G89.29 [place] [address] [facility] [id number] [address] [place] [phone] Apr, Bipolar I disorder, most rec ent episode (or current) mixed, moderate F31.62 [place] [address] [facility] [id number] [address] [place] [phone] Apr, [facility] [address] [facility] [id number] [address] [place] [phone] Apr, [facility] [address] [facility] [id number] [address] [place] [phone] Mar, Chronic pain G89.29 ; Headac he, unspecified headache type R51 ; Neuropathy G62.9 ; Pain of right hip joint M25.551 and Essential hypertension I10 [facility] [address] [facility] [id number] [address] [place] [phone] Mar, Chronic pain G89.29 [facility] [address] [id number] [address] [place] [id number] Mar, Bipolar I disorder, most rec ent episode (or current) mixed, moderate F31.62 [facility] [address] [facility] [id number] [address] [place] [phone] Feb, Bipolar I disorder, most rec ent episode (or current) mixed, moderate F31.62 and Insomnia, unspecified type G47.00 [facility] [address] [id number] [address] [place] [address] Feb, Chronic pain G89.29 [facility] [address] [id number] [address] [place] [phone] Feb, Bipolar I disorder, most rec ent episode (or current) mixed, moderate F31.62 [facility] [address] [facility] [id number] [address] [place] [address] January, Bipolar I disorder, most rec ent episode (or current) mixed, moderate F31.62 [facility] [address] [id number] [address] [place] [address] January, Chronic pain G89.29 [facility] [address] [facility] [id number] [address] [place] [phone] January, Chronic pain G89.29 and Esse ntial hypertension I10 [facility] [address] [id number] [address] [place] [phone] January, Bipolar I disorder, most rec ent episode (or current) mixed, moderate F31.62 [facility] [address] [facility] [id number] [address] [place] [phone] Dec, [facility] [address] [facility] [id number] [address] [place] [phone] Dec, [facility] [address] [facility] [id number] [address] [place] [phone] Dec, [facility] [address] [facility] [id number] [address] [place] [phone] Dec, [facility] [address] [facility] [id number] [address] [place] [address] Nov, Reactive airway disease J45. 909 [facility] [address] [facility] [id number] [address] [place] [phone] Nov, [facility] [address] [facility] [id number] [place] [phone] Nov, [facility] [address] [facility] [id number] [address] [place] [phone] Nov, [facility] [address] [facility] [id number] [place] [id number] Nov, [facility] [address] [place] [id number] [place] [phone] Nov, Onychomycosis B35.1 ; Hammer toe M20.40 ; Clutier or callus L84 and DM neuro manif type II E11.49 [facility] [address] [facility] [id number] [address] [place] [phone] Nov, Chronic pain G89.29 ; Leukoc ytosis D72.829 and Diabetes E11.9 [facility] [address] [facility] [id number] [address] [place] [phone] Nov, [facility] [address] [place] [id number] [address] [place] [phone] Oct, Bronchitis J40 [facility] [address] [facility] [id number] [address] [place] [phone] Oct, [facility] [address] [place] [id number] [address] [place] [id number] Oct, [facility] [address] [facility] [id number] [address] [place] [phone] Oct, Mastoiditis, unspecified lat erality H70.90 and Type 2 diabetes mellitus with complication E11.8 [facility] [address] [place] [id number] [address] [place] [phone] Sep, [facility] [address] [place] [id number] [place] [phone] Sep, Dysuria R30.0 ; Cough R05 ; Benign prostatic hyperplasia with lower urinary tract symptoms, unspecified morphology N40.1 ; Hypokalemia E87.6 and Eustachian tube dysfunction, unspecified laterality H69.80 [facility] [address] [place] [id number] [address] [place] [phone] Sep, Moderate mixed bipolar I dis order F31.62 [facility] [address] [address] Sep, Hypokalemia E87.6 [place] [address] [phone] Sep, [facility] [address] [id number] Sep, Upper respiratory tract infe ction, unspecified type J06.9 [facility] [address] [address] Aug, [facility] [address] [place] [id number] [place] [address] Aug, Dysuria R30.0 [facility] [address] [place] [id number] [address] [place] [address] Aug, [facility] [address] [place] [id number] [address] [place] [phone] Jul, [facility] [address] [id number] Jul, [facility] [address] [place] [id number] [address] [place] [id number] Jul, [facility] [address] [id number] Jul, [facility] [address] [facility] [id number] [address] [place] [id number] Jun, [facility] [address] [facility] [id number] [address] [place] [phone] Jun, [facility] [address] [place] [id number] [address] [place] [phone] Jun, [facility] [address] [facility] [id number] [address] [place] [phone] May, [facility] [address] [place] [id number] [address] [place] [address] May, Bipolar I disorder, most rec ent episode (or current) mixed, moderate 296.62 [facility] [address] [place] [id number] [address] [place] [phone] May, [facility] [address] [place] [id number] [address] [place] [id number] May, Bipolar I disorder, most rec ent episode (or current) mixed, moderate 296.62 and Major depressive disorder, recurrent episode, severe, specified as with psychotic behavior 296.34 [facility] [address] [place] [id number] [address] [place] [address] May, Bipolar I disorder, most rec ent episode (or current) mixed, moderate 296.62 [facility] [address] [place] [id number] [address] [place] [phone] May, [facility] [address] [place] [id number] [address] [place] [address] Apr, [facility] [address] [place] [id number] [address] [place] [id number] Apr, [facility] [address] [place] [id number] [address] [place] [address] Apr, Unspecified disorder of kidn ey and ureter 593.9 and Diabetes mellitus type 2, uncontrolled 250.02 [facility] [address] [place] [id number] [address] [place] [address] Apr, [facility] [address] [facility] [id number] [address] [place] [phone] Apr, [facility] [address] [facility] [id number] [address] [place] [phone] Apr, [facility] [address] [place] [id number] [address] [place] [address] Apr, [facility] [address] [place] [id number] [address] [place] [address] Apr, Diabetes mellitus type II, u ncontrolled 250.02 [facility] [address] [place] [id number] [place] [phone] Apr, [facility] [address] [address] Mar, [facility] [address] [place] [id number] [address] [place] [phone] Mar, [facility] [address] [place] [id number] [address] [place] [address] Mar, [facility] [address] [place] [id number] [address] [place] [address] Mar, Major depressive disorder, r ecurrent episode, severe, specified as with psychotic behavior 296.34 and Bipolar I disorder, most recent episode (or current) mixed, moderate 296.62 [facility] [address] [place] [id number] [address] [place] [address] Mar, Diabetes 250.00 ; Anuria 788 .5 ; Nausea and vomiting 787.01 and Diarrhea 787.91 [facility] [address] [place] [id number] [address] [place] [address] Mar, Diabetes 250.00 [facility] [address] [place] [id number] [address] [place] [address] Mar, [facility] [address] [id number] [place] [id number] Mar, Diabetes 250.00 [facility] [address] [address] Mar, [facility] [address] [address] Mar, [facility] [address] [address] Mar, [facility] [address] [phone] Mar, [facility] [address] [address] Mar, Bipolar I disorder, most rec ent episode (or current) mixed, moderate 296.62 and Major depressive disorder, recurrent episode, severe, specified as with psychotic behavior 296.[address] [address] Mar, Magnesium deficiency 275.2 ; Hypokalemia 276.8 ; Nausea & vomiting 787.01 and Diabetes mellitus type 2, uncontrolled 250.02 [place] [address] [address] Feb, [place] [address] [address] Feb, Bipolar I disorder, most rec ent episode (or current) mixed, moderate 296.62 [place] [address] [address] Feb, Nausea and vomiting 787.01 ; Left elbow pain 719.42 ; Anuria 788.5 and Diabetes 250.00 [place] [address] [address] Feb, [place] [address] [address] Feb, Hypopotassemia 276.8 and Hyp okalemia 276.8 [place] [address] [id number] [address] [place] [address] Feb, Hypopotassemia 276.8 and Hyp okalemia 276.8 [facility] [address] [id number] [address] [place] [phone] Feb, Seborrheic keratoses 702.19 [facility] [address] [id number] [address] [place] [phone] Feb, Hypopotassemia 276.8 and Low magnesium levels 275.2 [facility] [address] [id number] [address] [place] [id number] January, [facility] [address] [id number] [address] [place] [phone] January, [facility] [address] [facility] [id number] [address] [place] [phone] January, [facility] [address] [id number] [address] [place] [phone] January, Scalp lesion 709.9 [facility] [address] [id number] [address] [place] [phone] January, [facility] [address] [facility] [id number] [address] [place] [phone] Dec, Tear of medial cartilage or meniscus of knee, current 836.0 and 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 [facility] [address] [id number] [address] [place] [phone] Dec, [facility] [address] [id number] [address] [place] [id number] Dec, [facility] [address] [facility] [id number] [address] [place] [phone] Dec, Squamous cell carcinoma, 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 [facility] [address] [id number] [address] [place] [phone] Dec, [facility] [address] [id number] [address] [place] [address], [place] [id number] 13 Dec, 2014 [facility] [address] [id number] [address] [place] [address], [place] [phone] Nov, [facility] [address] [id number] [address] [place] [address], [place] [id number] Nov, [facility] [address] [id number] [address] [place] [address] [address] Nov, [facility] [address] [id number] [address] [place] [address], [place] [address] Nov, [facility] [address] [id number] [address] [place] [address], [place] [address] Nov, [facility] [address] [id number] [address] [place] [address], [place] [address] Nov, [facility] [address] [id number] [address] [place] [address], [place] [address] Nov, [facility] [address] [id number] [address] [place] [address], [place] [address] Nov, [facility] [address] [id number] [address] [place] [address], [place] [address] Nov, [facility] [address] [id number] [address] [place] [address], [place] [address] Nov, [facility] [address] [id number] [address] [place] [address], [place] [address] Nov, [facility] [address] [id number] [address] [place] [address], [place] [address] Nov, [facility] [address] [id number] [address] [place] [address], [place] [address] Oct, [facility] [address] [id number] [address] [place] [address], [place] [address] Oct, [facility] [address] [id number] [address] [place] [address], [place] [address] Oct, [facility] [address] [id number] [address] [place] [address], [place] [address] Oct, 2014 [facility] [address] [id number] [address] [place] [address], [place] [address] Oct, 2014 [facility] [address] [id number] [address] [place] [address], [place] [address] Oct, 2014 [facility] [address] [id number] [address] [place] [address], [place] [address] Oct, 2014 [facility] [address] [id number] [address] [place] [address], [place] [address] Oct, [facility] [address] [id number] [address] [place] [address], [place] [address] Oct, [facility] [address] [id number] [address] [place] [address], [place] [address] Sep, [facility] [address] [id number] [address] [place] [address], [place] [address] Sep, [facility] [address] [id number] [address] [place] [address], [place] [address] Sep, [facility] [address] [id number] [address] [place] [address], [place] [address] Sep, [facility] [address] [id number] [address] [place] [address], [place] [address] Sep, [facility] [address] [id number] [address] [place] [address] Sep, [facility] [address] [id number] [address] [place] [address], [place] [address] Sep, [facility] [address] [id number] [address] [place] [address], [place] [address] Sep, [facility] [address] [id number] [address] [place] [address], [place] [address] Sep, [facility] [address] [id number] [address] [place] [address], [place] [address] 14 Sep, 2014 [facility] [address] [id number] [address] [place] [address], [place] [address] Sep, [facility] [address] [id number] [address] [place] [address], [place] [address] 08 Sep, 2014 [facility] [address] [id number] [address] [place] [address], [place] [address] Sep, [facility] [address] [id number] [address] [place] [address], [place] [address] Sep, [facility] [address] [id number] [address] [place] [address], [place] [address] Sep, [facility] [address] [id number] [address] [place] [address], [place] [address] Sep, [facility] [address] [id number] [address] [place] [address], [place] [address] Aug, [facility] [address] [id number] [address] [place] [address], [place] [address] 31 Aug, 2014 [facility] [address] [id number] [address] [place] [address], [place] [address] 31 Aug, 2014 [facility] [address] [id number] [address] [place] [address], [place] [address] 31 Aug, 2014 [facility] [address] [id number] [address] [place] [address], [place] [address] 31 Aug, 2014 [facility] [address] [id number] [address] [place] [address], [place] [address] 31 Aug, 2014 [facility] [address] [id number] [address] [place] [address], [place] [address] 17 Aug, 2014 [facility] [address] [id number] [address] [place] [address], [place] [address] 17 Aug, 2014 [facility] [address] [id number] [address] [place] [address], [place] [address] Aug, [facility] [address] [id number] [facility] [place] [address] Aug, [facility] [address] [id number] [address] [place] [address], [place] [address] Aug, [facility] [place] [id number] Aug, [facility] [address] [id number] [facility] [place] [address] Aug, [facility] [address] [id number] [facility] [place] [address] Aug, [facility] [address] [id number] [facility] [place] [address] Aug, [facility] [address] [id number] [address] [place] [address], [place] [address] Aug, [facility] [address] [id number] [address] [place] [address], [place] [address] Aug, [facility] [address] [id number] [address] [place] [address], [place] [address] Aug, [facility] [address] [id number] [address] [place] [address], [place] [address] Aug, [facility] [address] [id number] [address] [place] [address], [place] [address] Aug, [facility] [address] [id number] [address] [place] [address], [place] [address] Aug, [facility] [address] [id number] [address] [place] [address], [place] [address] Aug, [facility] [address] [id number] [address] [place] [address], [place] [address] Aug, [facility] [address] [id number] [address] [place] [address], [place] [address] Aug, [facility] [address] [id number] [address] [place] [address], [place] [address] Aug, [facility] [address] [id number] [address] [place] [address], [place] [address] Aug, [facility] [address] [id number] [address] [place] [address], [place] [address] Aug, [facility] [address] [id number] [address] [place] [address], [place] [address] Aug, [facility] [address] [id number] [address] [place] [address], [place] [address] Aug, [facility] [address] [id number] [address] [place] [address], [place] [address] Aug, [facility] [address] [id number] [address] [place] [address], [place] [address] Jul, [facility] [address] [id number] [address] [place] [address], [place] [address] Jul, [facility] [address] [id number] [address] [place] [address], [place] [address] Jul, [facility] [address] [id number] [address] [place] [address], [place] [address] Jul, [facility] [address] [id number] [address] [place] [address], [place] [address] Jul, [facility] [address] [id number] [address] [place] [address], [place] [address] Jul, [facility] [address] [id number] [address] [place] [address] Jul, [facility] [address] [id number] [address] [place] [address], [place] [address] Jul, [facility] [address] [id number] [address] [place] [address], [place] [address] Jul, [facility] [address] [id number] [address] [place] [address], [place] [address] Jul, [facility] [address] [id number] [address] [place] [address], [place] [address] Jun, [facility] [address] [id number] [address] [place] [address], [place] [address] Jun, [facility] [address] [id number] [address] [place] [address], [place] [address] Jun, [facility] [address] [id number] [address] [place] [address], [place] [address] Jun, [facility] [address] [id number] [address] [place] [address], [place] [address] Jun, [facility] [address] [id number] [address] [place] [address], [place] [address] Jun, [facility] [address] [id number] [address] [place] [address], [place] [address] Jun, [facility] [address] [id number] [address] [place] [address], [place] [address] Jun, [facility] [address] [id number] [address] [place] [address], [place] [address] Jun, [facility] [address] [id number] [address] [place] [address], [place] [address] Jun, [facility] [address] [id number] [address] [place] [address], [place] [address] 29 May, 2013 [facility] [address] [id number] [address] [place] [address], [place] [address] 29 Sep, 2013 [facility] [address] [id number] [address] [place] [address], [place] [address] 26 Sep, 2013 [facility] [address] [id number] [address] [place] [address], [place] [address] 26 Sep, 2013 [facility] [address] [id number] [address] [place] [address], [place] [address] 17 Sep, 2013 [facility] [address] [id number] [address] [place] [address], [place] [address] 17 Sep, 2013 [facility] [address] [id number] [address] [place] [address], [place] [address] 15 May, 2013 [facility] [address] [id number] [address] [place] [address], [place] [address] 15 May, 2013 [facility] [address] [id number] [address] [place] [address], [place] [address] 15 May, 2013 [facility] [address] [id number] [address] [place] [address], [place] [address] 15 May, 2013 [facility] [address] [id number] [address] [place] [address], [place] [address] 10 May, 2013 [facility] [address] [id number] [address] [place] [address], [place] [address] 10 May, 2013 [facility] [address] [id number] [address] [place] [address], [place] [address] 09 May, 2013 [facility] [address] [id number] [address] [place] [address], [place] [address] 09 May, 2013 [facility] [address] [id number] [address] [place] [address], [place] [address] May, 2013 [facility] [address] [id number] [address] [place] [address], [place] [address] May, 2013 [facility] [address] [id number] [address] [place] [address], [place] [address] Apr, [facility] [address] [id number] [address] [place] [address], [place] [address] Apr, [facility] [address] [id number] [address] [place] [address], [place] [address] Apr, [facility] [address] [id number] [address] [place] [address], [place] [address] Apr, [facility] [address] [id number] [address] [place] [address], [place] [address] Apr, [facility] [address] [id number] [address] [place] [address], [place] [address] Apr, [facility] [address] [id number] [facility] [place] [address] Apr, [facility] [address] [id number] [address] [place] [address], [place] [address] Apr, [facility] [address] [id number] [address] [place] [address], [place] [address] Apr, [facility] [address] [id number] [address] [place] [address], [place] [address] Apr, [facility] [address] [id number] [address] [place] [address], [place] [address] Apr, [facility] [address] [id number] [address] [place] [address], [place] [address] Apr, [facility] [address] [id number] [address] [place] [address], [place] [address] Apr, [facility] [address] [id number] [address] [place] [address], [place] [address] Apr, [facility] [address] [id number] [address] [place] [address], [place] [address] Apr, [facility] [address] [id number] [address] [place] [address], [place] [address] Mar, [facility] [address] [id number] [address] [place] [address], [place] [address] Mar, [facility] [address] [id number] [address] [place] [address], [place] [address] Mar, [facility] [address] [id number] [address] [place] [address], [place] [address] Mar, [facility] [address] [id number] [address] [place] [address], [place] [address] Mar, [facility] [address] [id number] [address] [place] [address], [place] [address] Mar, [facility] [address] [id number] [facility] [place] [address] Mar, 2013 [facility] [address] [id number] [address] [place] [address], [place] [address] Mar, 2013 [facility] [address] [id number] [address] [place] [address], [place] [address] Mar, 2013 [facility] [address] [id number] [address] [place] [address], [place] [address] Mar, 2013 [facility] [address] [id number] [address] [place] [address], [place] [address] Mar, 2013 [facility] [address] [id number] [address] [place] [address], [place] [address] Mar, 2013 [facility] [address] [id number] [address] [place] [address], [place] [address] Mar, 2013 [facility] [address] [id number] [address] [place] [address], [place] [address] Mar, 2013 [facility] [address] [id number] [address] [place] [address], [place] [address] Mar, 2013 [facility] [address] [id number] [address] [place] [address], [place] [address] Mar, 2013 [facility] [address] [id number] [address] [place] [address], [place] [address] Mar, [facility] [address] [id number] [address] [place] [address], [place] [address] Mar, [facility] [address] [id number] [address] [place] [address], [place] [address] Feb, [facility] [address] [id number] [address] [place] [address], [place] [address] Feb, [facility] [address] [id number] [address] [place] [address], [place] [address] Feb, [facility] [address] [id number] [address] [place] [address], [place] [address] Feb, [facility] [address] [id number] [facility] [place] [address] Feb, [facility] [address] [id number] [facility] [place] [address] Feb, [facility] [address] [id number] [address] [place] [address] Feb, [facility] [address] [id number] [address] [place] [address] Feb, [facility] [address] [id number] [facility] [place] [address] Feb, [facility] [address] [id number] [address] [place] [address], [place] [address] Feb, [facility] [address] [id number] [address] [place] [address], [place] [address] Feb, [facility] [address] [id number] [address] [place] [address], [place] [address] Feb, [facility] [address] [id number] [address] [place] [address], [place] [address] Feb, [facility] [address] [id number] [address] [place] [address], [place] [address] Feb, [facility] [address] [id number] [address] [place] [address], [place] [address] January, [facility] [address] [id number] [address] [place] [address], [place] [address] January, [facility] [address] [id number] [address] [place] [address], [place] [address] January, [facility] [address] [id number] [address] [place] [address], [place] [address] January, [facility] [address] [id number] [address] [place] [address], [place] [address] January, [facility] [address] [id number] [address] [place] [address], [place] [address] January, [facility] [address] [id number] [facility] [place] [address] January, [facility] [address] [id number] [address] [place] [address], [place] [address] January, [facility] [address] [id number] [address] [place] [address], [place] [address] January, [facility] [address] [id number] [address] [place] [address], [place] [address] January, [facility] [address] [id number] [address] [place] [address], [place] [address] January, [facility] [address] [id number] [address] [place] [address], [place] [address] January, [facility] [address] [id number] [address] [place] [address], [place] [address] January, [facility] [address] [id number] [address] [place] [address], [place] [address] January, [facility] [address] [id number] [address] [place] [address], [place] [address] Dec, [facility] [address] [id number] [address] [place] [address], [place] [address] Dec, [facility] [address] [id number] [address] [place] [address], [place] [address] Dec, [facility] [address] [id number] [address] [place] [address], [place] [address] Dec, [facility] [address] [id number] [address] [place] [address], [place] [address] Dec, [facility] [address] [id number] [address] [place] [address], [place] [address] Dec, [facility] [address] [id number] [address] [place] [address], [place] [address] Dec, [facility] [address] [id number] [facility] [place] [address] Dec, [facility] [address] [id number] [facility] [place] [address] Dec, [facility] [address] [id number] [facility] [place] [address] Dec, [facility] [address] [id number] [facility] [place] [address] Nov, [facility] [address] [id number] [facility] [place] [address] Nov, [facility] [address] [id number] [address] [place] [address], [place] [address] Nov, [facility] [address] [id number] [address] [place] [address], [place] [address] Nov, [facility] [address] [id number] [address] [place] [address], [place] [address] Nov, [facility] [address] [id number] [address] [place] [address], [place] [address] Nov, [facility] [address] [id number] [address] [place] [address], [place] [address] Nov, [facility] [address] [id number] [address] [place] [address], [place] [address] Nov, [facility] [address] [id number] [address] [place] [address], [place] [address] Nov, [facility] [address] [id number] [address] [place] [address], [place] [address] Nov, [facility] [address] [id number] [address] [place] [address], [place] [address] Oct, [facility] [address] [id number] [address] [place] [address], [place] [address] Oct, [facility] [address] [id number] [address] [place] [address], [place] [address] Oct, [facility] [address] [id number] [address] [place] [address], [place] [address] Oct, [facility] [address] [id number] [address] [place] [address], [place] [address] Oct, [facility] [address] [id number] [address] [place] [address], [place] [address] Oct, [facility] [address] [id number] [address] [place] [address], [place] [address] Oct, [facility] [address] [id number] [address] [place] [address], [place] [address] Oct, [facility] [address] [id number] [address] [place] [address], [place] [address] Oct, [facility] [address] [id number] [address] [place] [address], [place] [address] Oct, [facility] [address] [id number] [address] [place] [address], [place] [address] Oct, [facility] [address] [id number] [address] [place] [address], [place] [address] Oct, [facility] [address] [id number] [address] [place] [address], [place] [address] Oct, [facility] [address] [id number] [address] [place] [address], [place] [address] Oct, [facility] [address] [id number] [address] [place] [address], [place] [address] Sep, [facility] [address] [id number] [address] [place] [address], [place] [address] Sep, [facility] [address] [id number] [address] [place] [address], [place] [address] Sep, [facility] [address] [id number] [address] [place] [address], [place] [address] Sep, [facility] [address] [id number] [address] [place] [address], [place] [address] 14 Sep, 2013 [facility] [address] [id number] [address] [place] [address], [place] [address] 14 Sep, 2013 [facility] [address] [id number] [address] [place] [address], [place] [address] 14 Sep, 2013 [facility] [address] [id number] [address] [place] [address], [place] [address] Sep, [facility] [address] [id number] [address] [place] [address], [place] [address] Sep, [facility] [address] [id number] [address] [place] [address], [place] [address] Sep, [facility] [address] [id number] [address] [place] [address], [place] [address] Aug, [facility] [address] [id number] [address] [place] [address], [place] [address] Aug, [facility] [address] [id number] [address] [place] [address], [place] [address] Jul, [facility] [address] [id number] [address] [place] [address], [place] [address] Jul, [facility] [address] [id number] [address] [place] [address], [place] [address] Jul, [facility] [address] [id number] [address] [place] [id number] Jul, [facility] [address] [id number] [address] [place] [address], [place] [address] Jul, [facility] [address] [id number] [address] [place] [address], [place] [address] Jul, [facility] [address] [id number] [address] [place] [address], [place] [address] 12 Jul, 2013 [facility] [address] [id number] [address] [place] [id number] Jul, [facility] [address] [id number] [address] [place] [address], [place] [address] Jul, [facility] [facility] [address] [id number] [address] [place] [id number] Jul, [facility] [address] [id number] [address] [place] [address], [place] [address] Jul, [facility] [address] [id number] [address] [place] [id number] Jul, [facility] [address] [id number] [address] [place] [address], [place] [address] Jul, [facility] [address] [id number] [address] [place] [address], [place] [address] Jul, [facility] [address] [id number] [address] [place] [id number] Jul, [facility] [address] [id number] [address] [place] [address], [place] [address] Jul, [facility] [address] [id number] [address] [place] [address] Jul, [facility] [address] [id number] [address] [place] [id number] Jul, [facility] [address] [id number] [address] [place] [address] Jul, [facility] [address] [id number] [address] [place] [address] Jun, [facility] [address] [id number] [address] [place] [address] Jun, [facility] [address] [id number] [address] [place] [id number] Jun, [facility] [address] [id number] [address] [place] [id number] Jun, [facility] [address] [id number] [address] [place] [address], [place] [address] 16 Jun, 2012 [facility] [address] [id number] [address] [place] [address], [place] [address] 16 Jun, 2012 [facility] [address] [id number] [address] [place] [address], [place] [address] 10 Jun, 2012 [facility] [address] [id number] [address] [place] [address], [place] [address] 10 Jun, 2012 [facility] [address] [id number] [address] [place] [address], [place] [address] Jun, [facility] [address] [id number] [address] [place] [address], [place] [address] Jun, [facility] [address] [id number] [address] [place] [address], [place] [address] Jun, [facility] [address] [id number] [address] [place] [address], [place] [address] 26 May, 2012 [facility] [address] [id number] [address] [place] [address], [place] [address] 25 May, 2012 [facility] [address] [id number] [address] [place] [address], [place] [address] 19 May, 2012 [facility] [address] [id number] [address] [place] [address], [place] [address] 17 May, 2012 [facility] [address] [id number] [address] [place] [address], [place] [address] 11 May, 2012 [facility] [address] [id number] [address] [place] [address], [place] [address] 10 May, 2012 [facility] [address] [id number] [address] [place] [address], [place] [address] 09 May, 2012 [facility] [address] [id number] [address] [place] [address], [place] [address] 05 May, 2012 [facility] [address] [id number] [address] [place] [address], [place] [address] Apr, [facility] [address] [id number] [facility] [place] [address] Apr, [facility] [address] [id number] [address] [place] [address], [place] [address] Apr, [facility] [address] [id number] [address] [place] [address], [place] [address] Apr, [facility] [address] [id number] [address] [place] [address], [place] [address] Apr, [facility] [address] [id number] [address] [place] [address], [place] [address] Mar, [facility] [address] [id number] [address] [place] [address], [place] [address] Mar, [facility] [address] [id number] [address] [place] [address], [place] [address] Mar, [facility] [address] [id number] [address] [place] [address], [place] [address] Mar, [facility] [address] [id number] [address] [place] [address], [place] [address] Mar, [facility] [address] [id number] [address] [place] [address], [place] [address] Mar, [facility] [address] [id number] [address] [place] [address], [place] [address] Mar, [facility] [address] [id number] [address] [place] [address], [place] [address] Mar, [facility] [address] [id number] [address] [place] [address], [place] [address] Feb, [facility] [address] [id number] [address] [place] [address], [place] [address] Feb, [facility] [address] [id number] [address] [place] [address], [place] [address] January, [facility] [address] [id number] [address] [place] [address], [place] [address] January, [facility] [address] [id number] [address] [place] [address], [place] [address] Dec, [facility] [address] [id number] [address] [place] [address], [place] [address] Dec, [facility] [address] [id number] [address] [place] [address], [place] [address] Nov, [facility] [address] [id number] [address] [place] [address], [place] [address] Nov, [facility] [address] [id number] [address] [place] [address], [place] [address] Nov, [facility] [address] [id number] [address] [place] [address], [place] [address] Nov, [facility] [address] [id number] [address] [place] [address], [place] [address] 27 Oct, 2012 [facility] [address] [id number] [address] [place] [address], [place] [address] 26 Oct, 2012 [facility] [address] [id number] [address] [place] [address], [place] [address] 26 Oct, 2012 [facility] [address] [id number] [address] [place] [address], [place] [address] 26 Oct, 2012 [facility] [address] [id number] [address] [place] [address], [place] [address] 16 Oct, 2012 [facility] [address] [id number] [address] [place] [address], [place] [address] 14 Oct, 2012 [facility] [address] [id number] [address] [place] [address], [place] [address] 08 Oct, 2012 [facility] [address] [id number] [address] [place] [address], [place] [address] 07 Oct, 2012 [facility] [address] [id number] [address] [place] [address], [place] [address] Oct, [facility] [address] [id number] [address] [place] [address], [place] [address] 30 Sep, 2012 [facility] [address] [id number] [address] [place] [address], [place] [address] Sep, [facility] [address] [id number] [address] [place] [address], [place] [address] Sep, [facility] [address] [id number] [address] [place] [address], [place] [address] Sep, [facility] [address] [id number] [address] [place] [address], [place] [address] Sep, [facility] [address] [id number] [address] [place] [address], [place] [address] Sep, [facility] [address] [id number] [address] [place] [address], [place] [address] Sep, [facility] [address] [id number] [address] [place] [address], [place] [address] Sep, [facility] [address] [id number] [address] [place] [address], [place] [address] Aug, [facility] [address] [id number] [address] [place] [address], [place] [address] 31 Aug, 2012 [facility] [address] [id number] [address] [place] [address], [place] [address] Aug, [facility] [address] [id number] [address] [place] [address], [place] [address] Aug, [facility] [address] [id number] [address] [place] [address], [place] [address] Aug, [facility] [address] [id number] [address] [place] [address], [place] [address] Aug, [facility] [address] [id number] [address] [place] [address], [place] [address] 18 Aug, 2012 [facility] [address] [id number] [address] [place] [address], [place] [address] Aug, [facility] [address] [id number] [address] [place] [address], [place] [address] Jul, [facility] [address] [id number] [address] [place] [address], [place] [address] Jul, [facility] [address] [id number] [address] [place] [address], [place] [address] Jul, [facility] [address] [id number] [address] [place] [address], [place] [address] Jul, [facility] [address] [id number] [address] [place] [address], [place] [address] Jul, [facility] [address] [id number] [address] [place] [address], [place] [address] Jul, [facility] [address] [id number] [address] [place] [address], [place] [address] Jun, [facility] [address] [id number] [address] [place] [address], [place] [address] Jun, [facility] [address] [id number] [address] [place] [address], [place] [address] Jun, [facility] [address] [id number] [address] [place] [address], [place] [address] Jun, [facility] [address] [id number] [address] [place] [address], [place] [address] Jun, [facility] [address] [id number] [address] [place] [address] Jun, [facility] [address] [id number] [address] [place] [address], [place] [address] Jun, [facility] [address] [id number] [address] [place] [address], [place] [address] Jun, [facility] [address] [id number] [address] [place] [address] Jun, [facility] [address] [id number] [address] [place] [address], [place] [address] May, [facility] [address] [id number] [address] [place] [address], [place] [address] 24 May, 2012 [facility] [address] [id number] [address] [place] [address], [place] [address] May, [facility] [address] [id number] [address] [place] [address], [place] [address] Apr, [facility] [address] [id number] [address] [place] [address], [place] [address] Apr, [facility] [address] [id number] [address] [place] [address], [place] [address] Apr, [facility] [address] [id number] [address] [place] [address], [place] [address] Apr, [facility] [address] [id number] [address] [place] [address], [place] [address] Apr, [facility] [address] [id number] [address] [place] [address], [place] [address] Apr, [facility] [address] [id number] [address] [place] [address], [place] [address] Mar, [facility] [address] [id number] [address] [place] [address], [place] [address] Mar, [facility] [address] [id number] [address] [place] [address], [place] [address] Mar, [facility] [address] [id number] [address] [place] [address], [place] [address] Mar, [facility] [address] [id number] [address] [place] [address], [place] [address] Feb, [facility] [address] [id number] [address] [place] [address], [place] [address] Feb, [facility] [address] [id number] [address] [place] [address], [place] [address] Feb, [facility] [address] [id number] [address] [place] [address], [place] [address] Feb, [facility] [address] [id number] [address] [place] [address], [place] [address] Feb, [facility] [address] [id number] [address] [place] [address], [place] [address] January, [facility] [address] [id number] [address] [place] [address], [place] [address] January, [facility] [address] [id number] [address] [place] [address], [place] [address] January, [facility] [address] [id number] [address] [place] [address], [place] [address] January, [facility] [address] [id number] [address] [place] [address], [place] [address] January, [facility] [address] [id number] [address] [place] [address], [place] [address] January, [facility] [address] [id number] [address] [place] [address], [place] [address] Dec, [facility] [address] [id number] [address] [place] [address], [place] [address] Dec, [facility] [address] [id number] [address] [place] [address], [place] [address] Dec, [facility] [address] [id number] [address] [place] [address], [place] [address] Dec, [facility] [address] [id number] [address] [place] [address], [place] [address] Dec, [facility] [address] [id number] [address] [place] [address], [place] [address] Nov, [facility] [address] [id number] [address] [place] [address], [place] [address] Nov, [facility] [address] [id number] [address] [place] [address], [place] [address] Nov, [facility] [address] [id number] [address] [place] [address], [place] [address] Nov, [facility] [address] [id number] [address] [place] [address], [place] [address] 29 Oct, 2011 [facility] [address] [id number] [address] [place] [address], [place] [address] 28 Oct, 2011 [facility] [address] [id number] [address] [place] [address], [place] [address] 24 Oct, 2011 [facility] [address] [id number] [address] [place] [address], [place] [address] 13 Oct, 2011 [facility] [address] [id number] [address] [place] [address], [place] [address] 08 Oct, 2011 [facility] [address] [id number] [address] [place] [address], [place] [address] Sep, [facility] [address] [id number] [address] [place] [address], [place] [address] Sep, [facility] [address] [id number] [address] [place] [address], [place] [address] Sep, [facility] [address] [id number] [address] [place] [address], [place] [address] Sep, [facility] [address] [id number] [address] [place] [address], [place] [address] Sep, [facility] [address] [id number] [address] [place] [address], [place] [address] Sep, [facility] [address] [id number] [address] [place] [address], [place] [address] Aug, [facility] [address] [id number] [address] [place] [address], [place] [address] Aug, [facility] [address] [id number] [address] [place] [address], [place] [address] Aug, [facility] [address] [id number] [address] [place] [address], [place] [address] Jul, [facility] [address] [id number] [address] [place] [address], [place] [address] Jul, [facility] [address] [id number] [address] [place] [address], [place] [address] Jul, [facility] [address] [id number] [address] [place] [address], [place] [address] Jul, [facility] [address] [id number] [address] [place] [address], [place] [address] Jun, [facility] [address] [id number] [address] [place] [address], [place] [address] Jun, [facility] [address] [id number] [address] [place] [address], [place] [address] Jun, [facility] [address] [id number] [address] [place] [address], [place] [address] Jun, [facility] [address] [id number] [address] [place] [address], [place] [address] Jun, [facility] [address] [id number] [address] [place] [address], [place] [address] Jun, [facility] [address] [id number] [address] [place] [address] Mar, [facility] [address] [id number] [address] [place] [address] Dec, [facility] [address] [id number] [address] [place] [address], [place] [address] Dec, [facility] [address] [id number] [address] [place] [address], [place] [address] 18 Nov, 2010 [facility] [address] [id number] [address] [place] [address], [place] [address] 16 Nov, 2010 [facility] [address] [id number] [address] [place] [address], [place] [address] 10 Sep, 2010 [facility] [address] [id number] [address] [place] [address], [place] [address] 31 Aug, 2010 [facility] [address] [id number] [address] [place] [address], [place] [address] 29 Aug, 2010 [facility] [address] [id number] [address] [place] [address], [place] [address] 29 Aug, 2010 [facility] [address] [id number] [address] [place] [address], [place] [address] 29 Aug, 2010 [facility] [address] [id number] [address] [place] [address], [place] [address] 27 Aug, 2010 [facility] [address] [id number] [address] [place] [address], [place] [address] 14 Aug, 2010 [facility] [address] [id number] [address] [place] [address], [place] [address] 08 Aug, 2010 [facility] [address] [id number] [address] [place] [address], [place] [address] 08 Aug, 2010 [facility] [address] [id number] [address] [place] [address], [place] [address] 07 Aug, 2010 [facility] [address] [id number] [address] [place] [address], [place] [address] 06 Aug, 2010 [facility] [address] [id number] [address] [place] [address], [place] [address] Aug, [facility] [address] [id number] [address] [place] [address], [place] [address] Aug, [facility] [address] [id number] [address] [place] [address], [place] [id number] 30 Jul, 2010 [facility] [address] [id number] [address] [place] [address], [place] [address] Jul, [facility] [address] [id number] [address] [place] [address], [place] [address] Jul, [facility] [address] [id number] [address] [place] [address], [place] [id number] 17 Jul, 2010 [facility] [address] [id number] [address] [place] [address], [place] [address] Jul, [facility] [address] [id number] [address] [place] [address], [place] [address] Jul, [facility] [address] [id number] [address] [place] [address], [place] [address] 24 Jun, 2010 [facility] [address] [id number] [address] [place] [address], [place] [address] Jun, [facility] [address] [id number] [address] [place] [address], [place] [address] Jun, [facility] [address] [id number] [address] [place] [address], [place] [address] Jun, [facility] [address] [id number] [address] [place] [address], [place] [address] Apr, [facility] [address] [id number] [address] [place] [address], [place] [address] Mar, [facility] [address] [id number] [address] [place] [address], [place] [address] Feb, [facility] [address] [id number] [address] [place] [address], [place] [address] January, [facility] [address] [id number] [address] [place] [address], [place] [address] 15 Dec, 2009 [facility] [address] [id number] [address] [place] [address], [place] [address] Nov, [facility] [address] [id number] [address] [place] [address], [place] [address] Aug, [facility] [address] [id number] [address] [place] [address], [place] [address] Aug, [facility] [address] [id number] [address] [place] [phone] Aug, [facility] [address] [id number] [address] [place] [id number] Jul, [facility] [address] [id number] [address] [place] [id number] Jul, [facility] [address] [id number] [address] [place] [id number] Jul, [facility] [address] [id number] [address] [place] [phone] Jun, [facility] [address] [id number] [address] [place] [phone] Jun, [facility] [address] [id number] [address] [place] [phone] Jun, [facility] [address] [id number] [address] [place] [phone] Jun, [facility] [address] [id number] [address] [place] [phone] Jun, [facility] [address] [id number] [address] [place] [phone] Jun, [facility] [address] [id number] [address] [place] [id number] Apr, [facility] [address] [id number] [address] [place] [id number] Apr, [facility] [address] [id number] [address] [place] [phone] Feb, [facility] [address] [id number] [address] [place] [phone] January, [facility] [address] [id number] [address] [place] [phone] Dec, IMMUNIZATIONS No Known Immunizations SOCIAL HISTORY [...] 2009 Surgical History colonoscopy 2009 ([facility]), 2013 ([place] ) Surgical History heart cath: CAD w/ [...] to urinate 09/16/15 Hospitalization History [facility] ea [facility] 1999's Hospitalization History hyperkalemia 10/2017 Hospitalization History fluid in lung
--- OUTSIDE RECORDS SUMMARY | 2020-03-01 17:09 | XMS REPORT ---
Author Author Michele WASHBURN Organization [facility] Address [address] [place] [address] Care Team Providers Care Last Inserter Name Role Phone NOEMI WASHBURN Unavailable PROBLEMS Type Condition ICD9-CM Code [id number] Code Onset Dates Condition S tatus SNOMED Code Problem Benign prostatic hyperplasia with lower urinary tract symptoms, unspecified morphology N40.1 Active 34588 6007 Problem Diabetes E11.9 Active 52023028 Problem DM neuro manif type II E11.49 Active 34780483 Problem Leukocytosis D72.829 Active 1858469 06 Problem Chronic pain G89.29 Active 1177894 1 Problem Bipolar I disorder, most recent episode (or curr ent) mixed, moderate F31.62 Active 07516807 Problem Reactive airway disease J45.909 Active 790386292678 Problem Pure hypercholesterolemia E78.00 Acti ve 993797701 Problem Dysuria R30.0 Active 71810611 Problem Bipolar disorder, in partial remission, most rec ent episode depressed F31.75 Active 32490071 Problem Hypokalemia E87.6 Active 50464924 Problem Eustachian tube dysfunction, unspecified laterality H69.80 Active 78297607 Problem Cough R05 Active 20200602 Problem Diabetic polyneuropathy associated with type 2 d iabetes mellitus E11.42 Active 79907364 Problem Essential hypertension I10 Active 01318688 Problem Bilateral primary osteoarthritis of knee M17.0 Active 077409483 Problem Polyneuropathy associated with underlying disease G63 Active 995165169 Problem Retinal edema H35.81 Active 382876 6 Problem Lymphocytosis D72.820 Active 963141 09 Problem Anemia of chronic illness D63.8 Acti ve 458233803 Problem Chronic lymphocytic leukemia C91.10 A ctive 33584165 Problem Falling R29.6 Active 511314800 Problem Pressure ulcer of other site, stage 3 L89.893 Active 881246385 Problem 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 Active 988496593 Problem Eye exam abnormal R93.8 Active 16 7566562 Problem Primary osteoarthritis of right knee M17.11 Active 527720003389076 Problem Other iron deficiency anemia D50.8 A ctive 07009733 Problem Mild cognitive impairment G31.84 Acti ve 802778358 Problem FDC (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 Z79.4 Active 710177597 Problem Anxiety F41.9 Active 65100908 Problem Type 2 diabetes mellitus with diabetic neuropathy, uns pecified E11.40 Active 99761818 Problem Insomnia, unspecified type G47.00 Act sharon 473517562 Problem Morbid obesity E66.01 Active 51973 6002 Problem Skin cancer C44.90 Active 31022932 7 Problem Bipolar disorder F31.9 Active 137 84220 Problem Chronic diastolic (congestive) heart failure I50.3 2 Active 402486701 Problem Psychophysiological insomnia F51.04 A ctive [id number] ALLERGIES No Information ENCOUNTERS Encounter Location Date Diagnosis [place] [address] [address] [facility] [id number] [address] [place] [phone] Sep, [place] [address] [address] [facility] [id number] [address] [place] [phone] Jul, [place] [address] [address] [facility] [id number] [address] [place] [phone] Jun, [facility] [address] [facility] [id number] [address] [place] [phone] Jun, [place] [address] [address] [facility] [id number] [address] [place] [phone] Jun, [place] [address] [facility] [id number] [address] [place] [address] Jun, Psychophysiological insomnia F51.04 ; Chronic pain G89.29 ; Bipolar I disorder, most recent episode (or current) mixed, moderate F31.62 ; 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 ; Polyneuropathy associated with underlying disease G63 ; Type 2 diabetes mellitus with diabetic neuropathy, unspecified E11.40 ; rn long term care (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 Z79.4 and Hyperglycemia R73.9 [facility] [address] [id number] [address] [place] [phone] Jun, Bipolar disorder, in partial remission, most recent episode depressed F31.75 and Mild cognitive impairment G31.84 [facility] [address] [id number] [address] [place] [phone] Jun, [facility] [address] [facility] [id number] [address] [place] [phone] Jun, Bipolar disorder F31.9 [facility] [address] [facility] [id number] [address] [place] [phone] May, Bipolar disorder, in partial remission, most recent episode depressed F31.75 and Mild cognitive impairment G31.84 [facility] [address] [facility] [id number] [address] [place] [phone] May, [facility] [address] [facility] [id number] [address] [place] [phone] Apr, Chronic pain G89.29 and Bipo lar disorder F31.9 [facility] [address] [id number] [address] [place] [phone] Mar, Bipolar disorder F31.9 and C hronic pain G89.29 [facility] [address] [facility] [id number] [address] [place] [phone] Feb, Bipolar disorder F31.9 [facility] [address] [facility] [id number] [address] [place] [phone] Feb, Cellulitis of right upper ex tremity L03.113 and Skin abrasion T14.8XXA [facility] [address] [id number] [address] [place] [phone] Feb, Bipolar disorder, in partial remission, most recent episode depressed F31.75 and Mild cognitive impairment G31.84 [facility] [address] [id number] [address] [place] [address] Feb, Chronic pain G89.29 [facility] [address] [facility] [id number] [address] [place] [phone] Feb, Bipolar disorder, in partial remission, most recent episode depressed F31.75 and Mild cognitive impairment G31.84 [facility] [address] [id number] [address] [place] [phone] January, Bipolar disorder, in partial remission, most recent episode depressed F31.75 and Mild cognitive impairment G31.84 [facility] [address] [id number] [address] [place] [phone] January, Chronic pain G89.29 and Bipo lar disorder F31.9 [facility] [address] [id number] [address] [place] [phone] January, Bipolar disorder, in partial remission, most recent episode depressed F31.75 and Mild cognitive impairment G31.84 [facility] [address] [id number] [address] [place] [phone] Dec, [facility] [address] [id number] [address] [place] [phone] Dec, Chronic pain G89.29 and Bipo lar disorder F31.9 [facility] [address] [id number] [address] [place] [phone] Dec, Edema of both lower extremit ies R60.0 [facility] [address] [id number] [address] [place] [phone] Dec, Bipolar disorder F31.9 [facility] [address] [id number] [address] [place] [phone] Dec, Bipolar disorder, in partial remission, most recent episode depressed F31.75 and Mild cognitive impairment G31.84 [facility] [address] [id number] [address] [place] [phone] Nov, [facility] [address] [id number] [address] [place] [address] Nov, Chronic pain G89.29 [facility] [address] [id number] [address] [place] [phone] Nov, Bipolar disorder, in partial remission, most recent episode depressed F31.75 and Mild cognitive impairment G31.84 [place] [address] [address] [place] [id number] [address] [place] [phone] Nov, Bipolar disorder F31.9 [place] [address] [address] [place] [id number] [address] [place] [phone] 04 Nov, 2018 Encounter for Medicare [facility] wellness exam Z00.00 ; Polyneuropathy associated with [...] unspecified morphology N40.1 and Essential hypertension I10 [place] [address] [address] [place] [id number] [address] [place] [phone] Oct, Chronic pain G89.29 [place] [address] [phone] 18 Oct, 2018 Diabetes E11.9 [place] [address] [address] [place] [id number] [address] [place] [phone] Oct, Bipolar I disorder, most rec ent episode (or current) mixed, moderate F31.62 and Mild cognitive impairment G31.84 [place] [address] [address] [place] [id number] [address] [place] [address] Oct, Bipolar I disorder, most rec ent episode (or current) mixed, moderate F31.62 and Mild cognitive impairment G31.84 [place] [address] [address] [place] [id number] [address] [place] [phone] Sep, Bipolar I disorder, most rec ent episode (or current) mixed, moderate F31.62 and Mild cognitive impairment G31.84 [place] [address] [address] [place] [id number] [address] [place] [phone] Sep, [facility] [address] [facility] [id number] [address] [place] [phone] Sep, Diabetes E11.9 ; Hypoxia R09 .02 ; Hyperglycemia R73.9 ; Therapeutic drug monitoring Z51.81 ; BMI 50.0-59.9, adult Z68.43 and Skin cancer C44.90 [place] [address] [address] [place] [id number] [address] [place] [address] Sep, Chronic pain G89.29 [place] [address] [address] [place] [id number] [address] [place] [phone] Sep, Bipolar I disorder, most rec ent episode (or current) mixed, moderate F31.62 [place] [address] [address] [place] [id number] [address] [place] [phone] Sep, [place] [address] [address] [place] [id number] [address] [place] [phone] Sep, [place] [address] [address] [facility] [id number] [address] [place] [phone] Aug, Chronic pain G89.29 [place] [address] [address] [facility] [id number] [address] [place] [phone] Aug, Bipolar I disorder, most rec ent episode (or current) mixed, moderate F31.62 [place] [address] [address] [place] [id number] [address] [place] [phone] Aug, Bipolar I disorder, most rec ent episode (or current) mixed, moderate F31.62 and Mild cognitive impairment G31.84 [place] [address] [address] [facility] [id number] [address] [place] [phone] Jul, [place] [address] [address] [place] [id number] [address] [place] [phone] Jul, Chronic pain G89.29 [place] [address] [facility] [id number] [address] [place] [phone] Jul, Bipolar I disorder, most rec ent episode (or current) mixed, moderate F31.62 and Mild cognitive impairment G31.84 [place] [address] [facility] [id number] [address] [place] [phone] Jul, Bipolar I disorder, most rec ent episode (or current) mixed, moderate F31.62 and MCI (mild cognitive impairment) G31.84 [place] [address] [facility] [id number] [address] [place] [address] Jul, [facility] [address] [facility] [id number] [address] [place] [phone] Jul, [place] [address] [address] [facility] [id number] [address] [place] [phone] Jul, Bipolar I disorder, most rec ent episode (or current) mixed, moderate F31.62 [place] [address] [facility] [id number] [address] [place] [phone] Jul, Chronic pain G89.29 [place] [address] [address] [facility] [id number] [address] [place] [address] Jun, Bipolar I disorder, most rec ent episode (or current) mixed, moderate F31.62 [place] [address] [address] [facility] [id number] [address] [place] [phone] Jun, Pre-procedure lab exam Z01.8 12 [place] [address] [address] [place] [id number] [address] [place] [phone] Jun, [facility] [address] [id number] [place] [address] [id number] Jun, [place] [address] [facility] [id number] [address] [place] [phone] Jun, [place] [address] [address] [place] [id number] [address] [place] [phone] Jun, Forgetfulness R68.89 ; Pre-s yncope R55 ; Localized edema R60.0 ; Other iron deficiency anemia D50.8 and BMI 50.0-59.9, adult Z68.43 [facility] [address] [facility] [id number] [address] [place] [phone] Jun, Chronic pain G89.29 [facility] [address] [facility] [id number] [address] [place] [address] Jun, Chronic pain G89.29 [facility] [address] [facility] [id number] [address] [place] [phone] Jun, Bipolar I disorder, most rec ent episode (or current) mixed, moderate F31.62 [facility] [address] [facility] [id number] [address] [place] [phone] May, Chronic pain G89.29 [facility] [address] [facility] [id number] [address] [place] [phone] Apr, [facility] [address] [place] [id number] [address] [place] [phone] Apr, Chronic pain G89.29 [facility] [address] [place] [id number] [address] [place] [phone] Apr, Primary osteoarthritis of ri ght knee M17.11 [facility] [address] [place] [id number] [address] [place] [phone] Mar, [facility] [address] [facility] [id number] [address] [place] [phone] Mar, BMI 50.0-59.9, adult Z68.43 and Bipolar disorder, in partial remission, most recent episode depressed F31.75 [facility] [address] [facility] [id number] [address] [place] [address] Mar, Diabetes E11.9 ; Pure hyperc holesterolemia E78.00 ; Essential hypertension I10 ; Nausea with vomiting, unspecified R11.2 and Headache, unspecified headache type R51 [facility] [address] [facility] [id number] [address] [place] [phone] Mar, Bipolar I disorder, most rec ent episode (or current) mixed, moderate F31.62 [facility] [address] [facility] [id number] [address] [place] [phone] 16 Mar, 2018 Bipolar I disorder, most rec ent episode (or current) mixed, moderate F31.62 [facility] [address] [facility] [id number] [address] [place] [phone] Mar, Chronic pain G89.29 [facility] [address] [facility] [id number] [address] [place] [phone] Mar, Bipolar I disorder, most rec ent episode (or current) mixed, moderate F31.62 [facility] [address] [facility] [id number] [address] [place] [phone] Feb, Bipolar I disorder, most rec ent episode (or current) mixed, moderate F31.62 [facility] [address] [facility] [id number] [address] [place] [phone] Feb, Chronic pain G89.29 [facility] [address] [place] [id number] [address] [place] [phone] Feb, Decubitus ulcer of right josselin t, stage 3 L89.893 and BMI 50.0-59.9, adult Z68.43 [facility] [address] [facility] [id number] [address] [place] [address] Feb, Bipolar I disorder, most rec ent episode (or current) mixed, moderate F31.62 [facility] [address] [facility] [id number] [address] [place] [phone] Feb, [facility] [address] [facility] [id number] [address] [place] [phone] January, [facility] [address] [facility] [id number] [address] [place] [address] January, Chronic pain G89.29 [facility] [address] [facility] [id number] [address] [place] [phone] January, Bipolar I disorder, most rec ent episode (or current) mixed, moderate F31.62 [place] [address] [place] [id number] [address] [place] [phone] January, Bipolar I disorder, most rec ent episode (or current) mixed, moderate F31.62 [place] [address] [place] [id number] [address] [place] [address] Dec, Bipolar I disorder, most rec ent episode (or current) mixed, moderate F31.62 and BMI 50.0-59.9, adult Z68.43 [place] [address] [address] Dec, Bipolar I disorder, most rec ent episode (or current) mixed, moderate F31.62 [place] [address] [address] Dec, Chronic pain G89.29 [place] [address] [place] [id number] [place] [address] Dec, DM neuro manif type II E11.4 9 ; Right flank pain R10.9 ; rn long term care 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 Z79.891 ; Encounter for medication monitoring Z51.81 and BMI 50.0-59.9, adult Z68.43 [place] [address] [address] Dec, Bipolar I disorder, most rec ent episode (or current) mixed, moderate F31.62 [place] [address] [place] [id number] [address] [place] [phone] Nov, Bipolar I disorder, most rec ent episode (or current) mixed, moderate F31.62 [place] [address] [place] [id number] [address] [place] [phone] Nov, Chronic pain G89.29 [place] [address] [place] [id number] [place] [address] Nov, Bipolar I disorder, most rec ent episode (or current) mixed, moderate F31.62 [place] [address] [place] [id number] [place] [address] Nov, Hypokalemia E87.6 [place] [address] [place] [id number] [place] [phone] Nov, Bipolar I disorder, most rec ent episode (or current) mixed, moderate F31.62 [place] [address] [place] [id number] [place] [address] Oct, Chronic pain G89.29 [place] [address] [place] [id number] [place] [address] Oct, BMI 50.0-59.9, adult Z68.43 and Bipolar I disorder, most recent episode (or current) mixed, moderate F31.62 [place] [address] [place] [id number] [place] [address] Oct, Bipolar I disorder, most rec ent episode (or current) mixed, moderate F31.62 [place] [address] [address] Oct, [place] [address] [address] Oct, Hypokalemia E87.6 [place] [address] [place] [id number] [place] [address] Oct, DM neuro manif type II E11.4 9 [place] [address] [address] Oct, Bipolar I disorder, most rec ent episode (or current) mixed, moderate F31.62 [place] [address] [place] [id number] [place] [address] Oct, Bipolar I disorder, most rec ent episode (or current) mixed, moderate F31.62 [place] [address] [place] [id number] [place] [address] 14 Oct, 2017 Hyperkalemia E87.5 ; Falling R29.6 ; BMI 50.0-59.9, adult Z68.43 and Acute left ankle pain M25.572 [place] [id number] [place] [address] 08 Oct, 2017 DM neuro manif type II E11.4 9 [facility] [address] [place] [id number] [address] [place] [phone] Oct, [facility] [address] [place] [id number] [place] [address] Sep, Chronic pain G89.29 [place] [address] [place] [id number] [address] [place] [phone] Sep, [place] [address] [place] [id number] [place] [address] Sep, Bilateral primary osteoarthr itis of knee M17.0 [place] [address] [address] Sep, Generalized edema R60.1 [place] [address] [address] 16 Sep, 2017 Bipolar I disorder, most rec ent episode (or current) mixed, moderate F31.62 [place] [address] [address] 15 Sep, 2017 Hypoxia R09.02 ; Other hyper volemia E87.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 ; Anemia of chronic illness D63.8 and BMI 50.0- 59.9, adult Z68.43 [place] [address] [address] Sep, [place] [address] [address] Sep, Bipolar I disorder, most rec ent episode (or current) mixed, moderate F31.62 [place] [address] [place] [address] Aug, Chronic pain G89.29 [facility] [address] [facility] [id number] [address] [place] [phone] Aug, Generalized edema R60.1 [facility] [address] [facility] [id number] [address] [place] [phone] 18 Aug, 2017 [facility] [address] [place] [id number] [address] [place] [phone] 18 Aug, 2017 [facility] [address] [facility] [id number] [address] [place] [phone] 14 Aug, 2017 Bipolar I disorder, most rec ent episode (or current) mixed, moderate F31.62 [facility] [address] [place] [id number] [address] [place] [id number] 07 Aug, 2017 Bipolar I disorder, most rec ent episode (or current) mixed, moderate F31.62 [place] [address] [place] [id number] [address] [place] [phone] 04 Aug, 2017 Chronic pain G89.29 [facility] ([facility] [address] [facility] [id number] [address] [place] [id number] 30 Jul, 2017 Bipolar I disorder, most rec ent episode (or current) mixed, moderate F31.62 [facility] ([facility] [address] [facility] [id number] [address] [place] [phone] Jul, Bipolar I disorder, most rec ent episode (or current) mixed, moderate F31.62 and BMI 60.0-69.9, adult Z68.44 [facility] ([facility] [address] [facility] [id number] [address] [place] [phone] 16 Jul, 2017 Bipolar I disorder, most rec ent episode (or current) mixed, moderate F31.62 [facility] ([facility] [address] [facility] [id number] [address] [place] [phone] 06 Jul, 2017 Chronic pain G89.29 [facility] ([facility] [address] [place] [id number] [address] [place] [id number] Jul, Bipolar I disorder, most rec ent episode (or current) mixed, moderate F31.62 [facility] [address] [facility] [id number] [address] [place] [phone] Jun, Polyneuropathy associated wi th underlying disease G63 and Diabetes E11.9 [facility] [address] [facility] [id number] [address] [place] [phone] 16 Jun, 2017 Bipolar I disorder, most rec ent episode (or current) mixed, moderate F31.62 [facility] [address] [facility] [id number] [address] [place] [phone] Jun, Chronic pain G89.29 [facility] [address] [facility] [id number] [address] [place] [phone] May, Bipolar I disorder, most rec ent episode (or current) mixed, moderate F31.62 [place] [address] [place] [id number] [address] [place] [phone] May, Bipolar I disorder, most rec ent episode (or current) mixed, moderate F31.62 [facility] [address] [facility] [id number] [address] [place] [phone] 20 May, 2017 Diabetic polyneuropathy asso ciated with type 2 diabetes mellitus E11.42 [facility] [address] [facility] [id number] [address] [place] [phone] 18 May, 2017 Bipolar I disorder, most rec ent episode (or current) mixed, moderate F31.62 [facility] [address] [facility] [id number] [address] [place] [phone] 13 May, 2017 Bipolar I disorder, most rec ent episode (or current) mixed, moderate F31.62 [facility] [address] [facility] [id number] [address] [place] [phone] May, Chronic pain G89.29 [facility] [address] [facility] [id number] [address] [place] [phone] Apr, Bipolar I disorder, most rec ent episode (or current) mixed, moderate F31.62 [facility] [address] [id number] [address] [place] [phone] Apr, [facility] [address] [id number] [address] [place] [phone] Apr, Chronic pain G89.29 and DM n euro manif type II E11.49 [facility] [address] [id number] [address] [place] [phone] Apr, [facility] [address] [id number] [address] [place] [phone] Apr, Bipolar I disorder, most rec ent episode (or current) mixed, moderate F31.62 [facility] [address] [facility] [id number] [address] [place] [phone] Apr, Chronic pain G89.29 [facility] [address] [facility] [id number] [address] [place] [phone] Apr, Iliotibial band syndrome, le ft M76.32 [facility] [address] [facility] [id number] [address] [place] [phone] Apr, Bipolar I disorder, most rec ent episode (or current) mixed, moderate F31.62 [facility] [address] [facility] [id number] [address] [place] [phone] Mar, Bipolar I disorder, most rec ent episode (or current) mixed, moderate F31.62 [facility] [address] [facility] [id number] [address] [place] [phone] Mar, Bipolar I disorder, most rec ent episode (or current) mixed, moderate F31.62 [facility] [address] [facility] [id number] [address] [place] [phone] Mar, [facility] [address] [facility] [id number] [address] [place] [phone] Mar, Bipolar I disorder, most rec ent episode (or current) mixed, moderate F31.62 [facility] [address] [facility] [id number] [address] [place] [phone] Mar, Chronic pain G89.29 [facility] [address] [id number] [address] [place] [phone] Mar, Bipolar I disorder, most rec ent episode (or current) mixed, moderate F31.62 [facility] [address] [facility] [id number] [address] [place] [phone] Mar, Bipolar I disorder, most rec ent episode (or current) mixed, moderate F31.62 [facility] [address] [id number] [address] [place] [phone] Mar, Acute pain of left knee M25. 562 ; Left hip pain M25.552 ; Generalized edema R60.1 and Tongue swelling R22.0 [facility] [address] [facility] [id number] [address] [place] [phone] Mar, [facility] [address] [facility] [id number] [address] [place] [phone] Feb, Chronic pain G89.29 [facility] [address] [facility] [id number] [address] [place] [phone] Feb, Diabetes E11.9 [facility] [address] [facility] [id number] [address] [place] [phone] January, Chronic pain G89.29 [facility] [address] [facility] [id number] [address] [place] [phone] January, [facility] [address] [facility] [id number] [address] [place] [phone] January, Bipolar I disorder, most rec ent episode (or current) mixed, moderate F31.62 [facility] [address] [facility] [id number] [address] [place] [phone] Dec, Bipolar I disorder, most rec ent episode (or current) mixed, moderate F31.62 [facility] [address] [facility] [id number] [address] [place] [phone] 24 Apr, 2017 Chronic pain G89.29 [facility] [address] [id number] [address] [place] [phone] Dec, Bipolar I disorder, most rec ent episode (or current) mixed, moderate F31.62 [facility] [address] [facility] [id number] [address] [place] [phone] Dec, Diabetes E11.9 ; Essential h ypertension I10 ; Chronic pain G89.29 and Morbid obesity E66.01 [facility] [address] [facility] [id number] [address] [place] [phone] Dec, [facility] [address] [facility] [id number] [address] [place] [phone] Dec, Bipolar I disorder, most rec ent episode (or current) mixed, moderate F31.62 [facility] [address] [facility] [id number] [address] [place] [phone] Dec, Bipolar I disorder, most rec ent episode (or current) mixed, moderate F31.62 [facility] [address] [facility] [id number] [address] [place] [phone] Nov, Chronic pain G89.29 [facility] [address] [facility] [id number] [address] [place] [phone] Nov, Bipolar I disorder, most rec ent episode (or current) mixed, moderate F31.62 [facility] [address] [facility] [id number] [address] [place] [phone] Nov, [facility] [address] [facility] [id number] [address] [place] [phone] Nov, Bipolar I disorder, most rec ent episode (or current) mixed, moderate F31.62 [facility] [address] [facility] [id number] [address] [place] [phone] Nov, Bipolar I disorder, most rec ent episode (or current) mixed, moderate F31.62 [facility] [address] [facility] [id number] [address] [place] [phone] Nov, [facility] [address] [id number] [address] [place] [phone] Nov, [facility] [address] [id number] [address] [place] [phone] Nov, [facility] [address] [id number] [address] [place] [phone] Oct, Chronic pain G89.29 [facility] [address] [id number] [address] [place] [phone] Oct, Bipolar I disorder, most rec ent episode (or current) mixed, moderate F31.62 [facility] [address] [id number] [address] [place] [phone] Oct, [facility] [address] [facility] [id number] [address] [place] [phone] Oct, Chronic pain G89.29 ; Diabet es E11.9 ; Anxiety F41.9 and 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 [facility] [address] [id number] [address] [place] [phone] Oct, [facility] [address] [facility] [id number] [address] [place] [phone] Oct, Diabetes E11.9 [facility] [address] [id number] [address] [place] [phone] Oct, Bipolar I disorder, most rec ent episode (or current) mixed, moderate F31.62 [facility] [address] [id number] [address] [place] [phone] Sep, Chronic pain G89.29 [facility] [address] [facility] [id number] [address] [place] [phone] Sep, Chronic pain G89.29 [facility] [address] [facility] [id number] [address] [place] [phone] Aug, Chronic pain G89.29 [facility] [address] [facility] [id number] [address] [place] [phone] Jul, [facility] [address] [place] [id number] [address] [place] [phone] Jul, Diabetes E11.9 [facility] [address] [place] [id number] [address] [place] [phone] Jul, Chronic pain G89.29 [place] [address] [place] [id number] [address] [place] [phone] Jul, Bipolar I disorder, most rec ent episode (or current) mixed, moderate F31.62 [place] [address] [place] [id number] [address] [place] [phone] Jun, Bipolar I disorder, most rec ent episode (or current) mixed, moderate F31.62 [place] [address] [place] [id number] [address] [place] [phone] Jun, [place] [address] [place] [id number] [address] [place] [phone] Jun, Bipolar I disorder, most rec ent episode (or current) mixed, moderate F31.62 [place] [address] [place] [id number] [address] [place] [phone] May, Insomnia, unspecified type G 47.00 [place] [address] [place] [id number] [address] [place] [phone] May, Bipolar I disorder, most rec ent episode (or current) mixed, moderate F31.62 [place] [address] [facility] [id number] [address] [place] [phone] 14 May, 2016 [place] [address] [place] [id number] [address] [place] [phone] May, Bipolar I disorder, most rec ent episode (or current) mixed, moderate F31.62 [place] [address] [place] [id number] [address] [place] [phone] May, Diabetes E11.9 and Essential hypertension I10 [facility] [address] [id number] [address] [place] [phone] Apr, Chronic pain G89.29 [facility] [address] [facility] [id number] [address] [place] [phone] Apr, Bipolar I disorder, most rec ent episode (or current) mixed, moderate F31.62 [place] [address] [facility] [id number] [address] [place] [phone] Apr, [place] [address] [facility] [id number] [address] [place] [phone] Apr, [place] [address] [facility] [id number] [address] [place] [phone] Mar, Chronic pain G89.29 ; Headac he, unspecified headache type R51 ; Neuropathy G62.9 ; Pain of right hip joint M25.551 and Essential hypertension I10 [place] [address] [facility] [id number] [address] [place] [phone] Mar, Chronic pain G89.29 [place] [id number] [facility] [id number] [address] [place] [phone] Mar, Bipolar I disorder, most rec ent episode (or current) mixed, moderate F31.62 [place] [address] [facility] [id number] [address] [place] [phone] Feb, Bipolar I disorder, most rec ent episode (or current) mixed, moderate F31.62 and Insomnia, unspecified type G47.00 [place] [address] [facility] [id number] [address] [place] [phone] Feb, Chronic pain G89.29 [place] [address] [facility] [id number] [address] [place] [phone] Feb, Bipolar I disorder, most rec ent episode (or current) mixed, moderate F31.62 [place] [address] [facility] [id number] [address] [place] [phone] January, Bipolar I disorder, most rec ent episode (or current) mixed, moderate F31.62 [facility] [address] [id number] [address] [place] [phone] January, Chronic pain G89.29 [facility] [address] [facility] [id number] [address] [place] [phone] January, Chronic pain G89.29 and Esse ntial hypertension I10 [facility] [address] [id number] [address] [place] [phone] January, Bipolar I disorder, most rec ent episode (or current) mixed, moderate F31.62 [facility] [address] [id number] [address] [place] [phone] Dec, [facility] [address] [facility] [id number] [address] [place] [phone] Dec, [facility] [address] [facility] [id number] [address] [place] [phone] Dec, [facility] [address] [facility] [id number] [address] [place] [phone] Dec, [facility] [address] [facility] [id number] [address] [place] [phone] Nov, Reactive airway disease J45. 909 [facility] [address] [place] [id number] [address] [place] [phone] Nov, [facility] [address] [facility] [id number] [address] [place] [phone] Nov, [facility] [address] [facility] [id number] [address] [place] [phone] Nov, [facility] [address] [facility] [id number] [address] [place] [phone] Nov, [facility] [address] [facility] [id number] [address] [place] [phone] Nov, Onychomycosis B35.1 ; Hammer toe M20.40 ; [place] or callus L84 and DM neuro manif type II E11.49 [facility] [address] [place] [id number] [address] [place] [phone] Nov, Chronic pain G89.29 ; Leukoc ytosis D72.829 and Diabetes E11.9 [facility] [address] [facility] [id number] [address] [place] [phone] Nov, [place] [address] [place] [id number] [address] [place] [phone] Oct, Bronchitis J40 [facility] [address] [place] [id number] [address] [place] [phone] Oct, [place] [address] [phone] Oct, [place] [address] [address] Oct, Mastoiditis, unspecified lat erality H70.90 and Type 2 diabetes mellitus with complication E11.8 [place] [address] [place] [id number] [address] [place] [phone] Sep, [place] [address] [phone] Sep, Dysuria R30.0 ; Cough R05 ; Benign prostatic hyperplasia with lower urinary tract symptoms, unspecified morphology N40.1 ; Hypokalemia E87.6 and Eustachian tube dysfunction, unspecified laterality H69.80 [place] [address] [place] [id number] [address] [place] [phone] Sep, Moderate mixed bipolar I dis order F31.62 [place] [address] [address] Sep, Hypokalemia E87.6 [place] [address] [place] [id number] [address] [place] [phone] Sep, [place] [address] [phone] Sep, Upper respiratory tract infe ction, unspecified type J06.9 [facility] [address] [id number] [address] [place] [phone] Aug, [facility] [address] [id number] [address] [place] [phone] Aug, Dysuria R30.0 [facility] [address] [id number] [address] [place] [phone] Aug, [facility] [address] [id number] [address] [place] [phone] Jul, [facility] [address] [id number] [address] [place] [phone] Jul, [facility] [address] [id number] [address] [place] [phone] Jul, [facility] [address] [id number] [address] [place] [phone] Jul, [facility] [address] [id number] [address] [place] [phone] Jun, [facility] [address] [id number] [address] [place] [phone] Jun, [facility] [address] [id number] [address] [place] [phone] Jun, [facility] [address] [id number] [address] [place] [phone] May, [facility] [address] [id number] [address] [place] [phone] May, Bipolar I disorder, most rec ent episode (or current) mixed, moderate 296.62 [facility] [address] [id number] [address] [place] [phone] 16 May, 2015 [facility] [address] [id number] [address] [place] [phone] May, Bipolar I disorder, most rec ent episode (or current) mixed, moderate 296.62 and Major depressive disorder, recurrent episode, severe, specified as with psychotic behavior 296.34 [facility] [address] [facility] [id number] [address] [place] [phone] May, Bipolar I disorder, most rec ent episode (or current) mixed, moderate 296.62 [facility] [address] [facility] [id number] [address] [place] [phone] May, [facility] [address] [facility] [id number] [address] [place] [phone] Apr, [facility] [address] [facility] [id number] [address] [place] [phone] Apr, [facility] [address] [place] [id number] [address] [place] [phone] Apr, Unspecified disorder of kidn ey and ureter 593.9 and Diabetes mellitus type 2, uncontrolled 250.02 [facility] [address] [place] [id number] [address] [place] [phone] Apr, [facility] [address] [facility] [id number] [address] [place] [phone] Apr, [facility] [address] [place] [id number] [address] [place] [phone] Apr, [facility] ([facility] [address] [facility] [id number] [address] [place] [phone] Apr, [facility] ([facility] [id number] [address] [place] [phone] Apr, Diabetes mellitus type II, u ncontrolled 250.02 [facility] ([facility] [address] [facility] [id number] [address] [place] [phone] Apr, [facility] ([facility] [address] [facility] [id number] [address] [place] [id number] Mar, [facility] ([facility] [address] [facility] [id number] [address] [place] [phone] Mar, [facility] ([facility] [address] [facility] [id number] [address] [place] [phone] Mar, [facility] ([facility] [id number] [address] [place] [id number] Mar, Major depressive disorder, r ecurrent episode, severe, specified as with psychotic behavior 296.34 and Bipolar I disorder, most recent episode (or current) mixed, moderate 296.62 [facility] ([facility] [id number] [address] [place] [phone] Mar, Diabetes 250.00 ; Anuria 788 .5 ; Nausea and vomiting 787.01 and Diarrhea 787.91 [facility] ([facility] [id number] [address] [place] [phone] Mar, Diabetes 250.00 [facility] ([facility] [id number] [place] [phone] Mar, [facility] ([facility] [id number] [place] [phone] Mar, Diabetes 250.00 [facility] ([facility] [address] [facility] [id number] [address] [place] [phone] Mar, [facility] ([facility] [id number] [place] [phone] Mar, [facility] ([facility] [id number] [place] [phone] Mar, [facility] ([facility] [id number] [place] [phone] Mar, [facility] ([facility] [id number] [place] [phone] Mar, Bipolar I disorder, most rec ent episode (or current) mixed, moderate 296.62 and Major depressive disorder, recurrent episode, severe, specified as with psychotic behavior 296.34 [facility] ([facility] [id number] [place] [phone] Mar, Magnesium deficiency 275.2 ; Hypokalemia 276.8 ; Nausea & vomiting 787.01 and Diabetes mellitus type 2, uncontrolled 250.02 [place] [address] [address] Feb, [place] [address] [address] Feb, Bipolar I disorder, most rec ent episode (or current) mixed, moderate 296.[address] [address] Feb, Nausea and vomiting 787.01 ; Left elbow pain 719.42 ; Anuria 788.5 and Diabetes 250.[address] [address] Feb, [address] [address] Feb, Hypopotassemia 276.8 and Hyp okalemia 276.[address] [address] Feb, Hypopotassemia 276.8 and Hyp okalemia 276.[address] [address] Feb, Seborrheic keratoses 702.[address] [address] Feb, Hypopotassemia 276.8 and Low magnesium levels 275.2 [place] [address] [address] January, [address] [address] January, [place] [address] [address] January, [place] [address] [address] January, Scalp lesion 709.9 [facility] [address] [id number] [address] [place] [address] January, [facility] [address] [id number] [address] [place] [address] Dec, Tear of medial cartilage or meniscus of knee, current 836.0 and 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 [facility] [address] [id number] [address] [place] [address] Dec, [facility] [address] [id number] [address] [place] [address] Dec, [facility] [address] [id number] [address] [place] [address] Dec, Squamous cell carcinoma, 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 [facility] [address] [id number] [address] [place] [address] Dec, [facility] [address] [id number] [address] [place] [address] Dec, [facility] [address] [id number] [address] [place] [address] Nov, [facility] [address] [id number] [address] [place] [address] Nov, [facility] [address] [id number] [address] [place] [address] Nov, [facility] [address] [id number] [address] [place] [address] Nov, [facility] [address] [id number] [address] [place] [address] Nov, [facility] [address] [id number] [address] [place] [address] Nov, [facility] [address] [id number] [address] [place] [address] Nov, [facility] [address] [id number] [address] [place] [address], [place] [address] Nov, 2014 [facility] [address] [id number] [address] [place] [address], [place] [address] Nov, [facility] [address] [id number] [address] [place] [address], [place] [address] Nov, 2014 [facility] [address] [id number] [address] [place] [address], [place] [address] Nov, 2014 [facility] [address] [id number] [address] [place] [address], [place] [address] Nov, [facility] [address] [id number] [address] [place] [address], [place] [address] Oct, 2014 [facility] [address] [id number] [address] [place] [address], [place] [address] Oct, 2014 [facility] [address] [id number] [address] [place] [address], [place] [address] Oct, 2014 [facility] [address] [id number] [address] [place] [address], [place] [address] Oct, 2014 [facility] [address] [id number] [address] [place] [address] Oct, 2014 [facility] [address] [id number] [address] [place] [address] Oct, 2014 [facility] [address] [id number] [address] [place] [address] Oct, 2014 [facility] [address] [id number] [address] [place] [address], [place] [address] Oct, 2014 [facility] [address] [id number] [address] [place] [address] Oct, 2014 [facility] [address] [id number] [address] [place] [address] Sep, [facility] [address] [id number] [address] [place] [address] Sep, [facility] [address] [id number] [address] [place] [address], [place] [address] Sep, [facility] [address] [id number] [address] [place] [address], [place] [address] Sep, [facility] [address] [id number] [address] [place] [address], [place] [address] Sep, [facility] [address] [id number] [address] [place] [address], [place] [address] Sep, [facility] [address] [id number] [address] [place] [address], [place] [address] Sep, [facility] [address] [id number] [address] [place] [address], [place] [address] Sep, [facility] [address] [id number] [address] [place] [address], [place] [address] Sep, [facility] [address] [id number] [address] [place] [address], [place] [address] Sep, [facility] [address] [id number] [address] [place] [address], [place] [address] Sep, [facility] [address] [id number] [address] [place] [address], [place] [address] Sep, [facility] [address] [id number] [address] [place] [address], [place] [address] Sep, [facility] [address] [id number] [address] [place] [address], [place] [address] Sep, [facility] [address] [id number] [address] [place] [address], [place] [address] Sep, [facility] [address] [id number] [address] [place] [address], [place] [address] Sep, [facility] [address] [id number] [address] [place] [address], [place] [address] Aug, [facility] [address] [id number] [facility] [place] [address] Aug, [facility] [address] [id number] [facility] [place] [address] Aug, [facility] [address] [id number] [facility] [place] [address] Aug, [facility] [address] [id number] [facility] [place] [address] Aug, [facility] [address] [id number] [facility] [place] [address] Aug, [facility] [address] [id number] [facility] [place] [address] Aug, [facility] [address] [id number] [address] [place] [address], [place] [address] Aug, [facility] [address] [id number] [address] [place] [address], [place] [address] Aug, [facility] [address] [id number] [address] [place] [address], [place] [address] Aug, [facility] [address] [id number] [address] [place] [address], [place] [address] Aug, [facility] [place] [id number] Aug, [facility] [address] [id number] [address] [place] [address], [place] [address] Aug, [facility] [address] [id number] [address] [place] [address], [place] [address] Aug, [facility] [address] [id number] [address] [place] [address], [place] [address] Aug, [facility] [address] [id number] [address] [place] [address], [place] [address] Aug, [facility] [address] [id number] [address] [place] [address], [place] [address] Aug, [facility] [address] [id number] [address] [place] [address], [place] [address] Aug, [facility] [address] [id number] [address] [place] [address], [place] [address] Aug, [facility] [address] [id number] [address] [place] [address], [place] [address] Aug, [facility] [address] [id number] [address] [place] [address], [place] [address] Aug, [facility] [address] [id number] [address] [place] [address], [place] [address] Aug, [facility] [address] [id number] [address] [place] [address], [place] [address] Aug, [facility] [address] [id number] [address] [place] [address], [place] [address] Aug, [facility] [address] [id number] [address] [place] [address], [place] [address] Aug, [facility] [address] [id number] [address] [place] [address], [place] [address] Aug, [facility] [address] [id number] [address] [place] [address], [place] [address] Aug, [facility] [address] [id number] [address] [place] [address], [place] [address] Aug, [facility] [address] [id number] [address] [place] [address], [place] [address] Aug, [facility] [address] [id number] [address] [place] [address], [place] [address] Aug, [facility] [address] [id number] [address] [place] [address], [place] [address] Jul, [facility] [address] [id number] [address] [place] [address], [place] [address] Jul, [facility] [address] [id number] [address] [place] [address] Jul, [facility] [address] [id number] [address] [place] [address], [place] [address] Jul, [facility] [address] [id number] [address] [place] [address] Jul, [facility] [address] [id number] [address] [place] [address], [place] [address] Jul, [facility] [address] [id number] [address] [place] [address] Jul, [facility] [address] [id number] [address] [place] [address], [place] [address] Jul, [facility] [address] [id number] [address] [place] [address], [place] [address] Jul, [facility] [address] [id number] [address] [place] [address] Jul, [facility] [address] [id number] [address] [place] [address], [place] [address] Jun, [facility] [address] [id number] [address] [place] [address] Jun, [facility] [address] [id number] [address] [place] [address] Jun, [facility] [address] [id number] [address] [place] [address] Jun, [facility] [address] [id number] [address] [place] [address] Jun, [facility] [address] [id number] [address] [place] [address] Jun, [facility] [address] [id number] [address] [place] [address] Jun, [facility] [address] [id number] [address] [place] [id number] Jun, [facility] [address] [id number] [address] [place] [address], [place] [address] Jun, [facility] [address] [id number] [address] [place] [address], [place] [address] Jun, [facility] [address] [id number] [address] [place] [address], [place] [address] 29 May, 2013 [facility] [address] [id number] [address] [place] [address], [place] [address] 29 Sep, 2013 [facility] [address] [id number] [address] [place] [address], [place] [address] 26 May, 2013 [facility] [address] [id number] [address] [place] [address], [place] [address] 26 May, 2013 [facility] [address] [id number] [address] [place] [address], [place] [address] 17 May, 2013 [facility] [address] [id number] [address] [place] [address], [place] [address] 17 May, 2013 [facility] [address] [id number] [address] [place] [address], [place] [address] 15 May, 2013 [facility] [address] [id number] [address] [place] [address], [place] [address] 15 May, 2013 [facility] [address] [id number] [address] [place] [address], [place] [address] 15 May, 2013 [facility] [address] [id number] [address] [place] [address], [place] [address] 15 May, 2013 [facility] [address] [id number] [address] [place] [address], [place] [address] 10 Sep, 2013 [facility] [address] [id number] [address] [place] [address], [place] [address] 10 May, 2013 [facility] [address] [id number] [address] [place] [address], [place] [address] 09 May, 2013 [facility] [address] [id number] [address] [place] [address], [place] [address] May, [facility] [address] [id number] [facility] [place] [address] May, [facility] [address] [id number] [address] [place] [address], [place] [address] May, [facility] [address] [id number] [address] [place] [address], [place] [address] Apr, [facility] [address] [id number] [address] [place] [address], [place] [address] Apr, [facility] [address] [id number] [address] [place] [address], [place] [address] Apr, [facility] [address] [id number] [address] [place] [address], [place] [address] Apr, [facility] [address] [id number] [address] [place] [address], [place] [address] Apr, [facility] [address] [id number] [address] [place] [address], [place] [address] Apr, [facility] [address] [id number] [address] [place] [address], [place] [address] Apr, [facility] [address] [id number] [address] [place] [address], [place] [address] Apr, [facility] [address] [id number] [address] [place] [address], [place] [address] Apr, [facility] [address] [id number] [address] [place] [address], [place] [address] Apr, [facility] [address] [id number] [address] [place] [address], [place] [address] Apr, [facility] [address] [id number] [address] [place] [address], [place] [address] Apr, [facility] [address] [id number] [address] [place] [address], [place] [address] Apr, [facility] [address] [id number] [address] [place] [address], [place] [address] Apr, [facility] [address] [id number] [address] [place] [address], [place] [address] Apr, [facility] [address] [id number] [address] [place] [address], [place] [address] Mar, [facility] [address] [id number] [address] [place] [address], [place] [address] Mar, [facility] [address] [id number] [address] [place] [address], [place] [address] Mar, [facility] [address] [id number] [address] [place] [address], [place] [address] Mar, [facility] [address] [id number] [address] [place] [address], [place] [address] Mar, [facility] [address] [id number] [address] [place] [address], [place] [address] Mar, [facility] [address] [id number] [address] [place] [address], [place] [address] Mar, [facility] [address] [id number] [address] [place] [address], [place] [address] Mar, [facility] [address] [id number] [address] [place] [address], [place] [address] Mar, [facility] [address] [id number] [address] [place] [address], [place] [address] Mar, [facility] [address] [id number] [address] [place] [address], [place] [address] Mar, [facility] [address] [id number] [address] [place] [address], [place] [address] Mar, [facility] [address] [id number] [address] [place] [address], [place] [address] Mar, [facility] [address] [id number] [address] [place] [address], [place] [address] Mar, [facility] [address] [id number] [facility] [place] [address] Mar, 2013 [facility] [address] [id number] [facility] [place] [address] Mar, 2013 [facility] [address] [id number] [facility] [place] [address] Mar, [facility] [address] [id number] [facility] [place] [address] Mar, [facility] [address] [id number] [facility] [place] [address] Feb, [facility] [address] [id number] [address] [place] [address], [place] [address] Feb, [facility] [address] [id number] [address] [place] [address], [place] [address] Feb, [facility] [address] [id number] [address] [place] [address], [place] [address] Feb, [facility] [address] [id number] [address] [place] [address], [place] [address] Feb, [facility] [address] [id number] [address] [place] [address], [place] [address] Feb, [facility] [address] [id number] [address] [place] [address], [place] [address] Feb, [facility] [address] [id number] [address] [place] [address], [place] [address] Feb, [facility] [address] [id number] [address] [place] [address], [place] [address] Feb, [facility] [address] [id number] [address] [place] [address], [place] [address] Feb, [facility] [address] [id number] [address] [place] [address], [place] [address] Feb, [facility] [address] [id number] [address] [place] [address], [place] [address] Feb, [facility] [address] [id number] [facility] [place] [address] Feb, [facility] [address] [id number] [address] [place] [address], [place] [address] Feb, [facility] [address] [id number] [address] [place] [address], [place] [address] January, [facility] [address] [id number] [address] [place] [address], [place] [address] January, [facility] [address] [id number] [address] [place] [address], [place] [address] January, [facility] [address] [id number] [address] [place] [address], [place] [address] January, [facility] [address] [id number] [address] [place] [address], [place] [address] January, [facility] [address] [id number] [address] [place] [address], [place] [address] January, [facility] [address] [id number] [address] [place] [address], [place] [address] January, [facility] [address] [id number] [address] [place] [address], [place] [address] January, [facility] [address] [id number] [address] [place] [address], [place] [address] January, [facility] [address] [id number] [address] [place] [address], [place] [address] January, [facility] [address] [id number] [address] [place] [address], [place] [address] January, [facility] [address] [id number] [address] [place] [address], [place] [address] January, [facility] [address] [id number] [address] [place] [address], [place] [address] January, [facility] [address] [id number] [address] [place] [address] January, [facility] [address] [id number] [address] [place] [address], [place] [address] Dec, [facility] [address] [id number] [address] [place] [address], [place] [address] Dec, [facility] [address] [id number] [address] [place] [address], [place] [address] Dec, [facility] [address] [id number] [address] [place] [address], [place] [address] Dec, [facility] [address] [id number] [address] [place] [address], [place] [address] Dec, [facility] [address] [id number] [address] [place] [address], [place] [address] Dec, [facility] [address] [id number] [address] [place] [address], [place] [address] Dec, [facility] [address] [id number] [address] [place] [address], [place] [address] Dec, [facility] [address] [id number] [address] [place] [address], [place] [address] Dec, [facility] [address] [id number] [address] [place] [address], [place] [address] Dec, [facility] [address] [id number] [address] [place] [address], [place] [address] Nov, [facility] [address] [id number] [address] [place] [address], [place] [address] Nov, [facility] [address] [id number] [address] [place] [address], [place] [address] Nov, [facility] [address] [id number] [address] [place] [address], [place] [address] Nov, [facility] [address] [id number] [address] [place] [address], [place] [address] Nov, [facility] [address] [id number] [address] [place] [address], [place] [address] 08 Nov, 2013 [facility] [address] [id number] [address] [place] [address], [place] [address] Nov, [facility] [address] [id number] [address] [place] [address], [place] [address] Nov, [facility] [address] [id number] [address] [place] [address], [place] [address] Nov, [facility] [address] [id number] [address] [place] [address], [place] [address] Nov, [facility] [address] [id number] [address] [place] [address], [place] [address] Oct, [facility] [address] [id number] [address] [place] [address], [place] [address] Oct, [facility] [address] [id number] [address] [place] [address], [place] [address] Oct, [facility] [address] [id number] [address] [place] [address], [place] [address] Oct, [facility] [address] [id number] [address] [place] [address], [place] [address] Oct, [facility] [address] [id number] [address] [place] [address], [place] [address] Oct, [facility] [address] [id number] [address] [place] [address], [place] [address] 14 Oct, 2013 [facility] [address] [id number] [address] [place] [address], [place] [address] Oct, [facility] [address] [id number] [address] [place] [address], [place] [address] Oct, [facility] [address] [id number] [address] [place] [address], [place] [address] Oct, [facility] [address] [id number] [address] [place] [address], [place] [address] 04 Oct, 2013 [facility] [address] [id number] [address] [place] [address], [place] [address] Oct, [facility] [address] [id number] [address] [place] [address], [place] [address] Oct, [facility] [address] [id number] [address] [place] [address], [place] [address] Oct, [facility] [address] [id number] [address] [place] [address] [address] Sep, [facility] [address] [id number] [address] [place] [address], [place] [address] Sep, [facility] [address] [id number] [address] [place] [address], [place] [address] Sep, [facility] [address] [id number] [address] [place] [address], [place] [address] Sep, [facility] [address] [id number] [address] [place] [address], [place] [address] Sep, [facility] [address] [id number] [address] [place] [address], [place] [address] Sep, [facility] [address] [id number] [address] [place] [address], [place] [address] Sep, [facility] [address] [id number] [address] [place] [address], [place] [address] Sep, [facility] [address] [id number] [address] [place] [address], [place] [address] Sep, [facility] [address] [id number] [address] [place] [address], [place] [address] Sep, [facility] [address] [id number] [address] [place] [address], [place] [address] Aug, [facility] [address] [id number] [address] [place] [address] [address] Aug, [facility] [address] [id number] [address] [place] [address], [place] [address] Jul, [facility] [address] [id number] [address] [place] [address], [place] [address] Jul, [facility] [address] [id number] [address] [place] [address], [place] [address] Jul, [facility] [address] [id number] [address] [place] [address], [place] [address] Jul, [facility] [address] [id number] [address] [place] [address], [place] [address] Jul, [facility] [address] [id number] [address] [place] [address], [place] [address] Jul, [facility] [address] [id number] [address] [place] [address], [place] [address] Jul, [facility] [address] [id number] [address] [place] [address], [place] [address] Jul, [facility] [address] [id number] [address] [place] [address], [place] [address] Jul, [facility] [address] [id number] [address] [place] [address], [place] [address] Jul, [facility] [address] [id number] [address] [place] [address] Jul, [facility] [address] [id number] [address] [place] [address] Jul, [facility] [address] [id number] [address] [place] [address], [place] [address] Jul, [facility] [address] [id number] [address] [place] [address] Jul, [facility] [address] [id number] [address] [place] [address] Jul, [facility] [address] [id number] [address] [place] [address], [place] [address] 05 Jul, 2012 [facility] [address] [id number] [address] [place] [address], [place] [address] 05 Jul, 2012 [facility] [address] [id number] [address] [place] [address], [place] [address] Jul, 2012 [facility] [address] [id number] [address] [place] [address], [place] [address] Jul, 2012 [facility] [address] [id number] [address] [place] [address], [place] [address] Jun, 2012 [facility] [address] [id number] [address] [place] [address], [place] [address] Jun, 2012 [facility] [address] [id number] [address] [place] [address], [place] [address] Jun, 2012 [facility] [address] [id number] [address] [place] [address], [place] [address] Jun, 2012 [facility] [address] [id number] [address] [place] [address], [place] [address] Jun, 2012 [facility] [address] [id number] [address] [place] [address], [place] [address] Jun, 2012 [facility] [address] [id number] [address] [place] [address] Jun, 2012 [facility] [address] [id number] [address] [place] [address], [place] [address] Jun, 2012 [facility] [address] [id number] [address] [place] [address] Jun, [facility] [address] [id number] [address] [place] [address], [place] [address] Jun, [facility] [address] [id number] [address] [place] [address] Jun, [facility] [address] [id number] [address] [place] [address] May, [facility] [address] [id number] [address] [place] [address], [place] [address] 25 May, 2012 [facility] [address] [id number] [address] [place] [address], [place] [address] May, 2012 [facility] [address] [id number] [address] [place] [address], [place] [address] 17 May, 2012 [facility] [address] [id number] [address] [place] [address], [place] [address] 11 May, 2012 [facility] [address] [id number] [address] [place] [address], [place] [address] 10 May, 2012 [facility] [address] [id number] [address] [place] [address], [place] [address] May, [facility] [address] [id number] [address] [place] [address], [place] [address] 05 May, 2013 [facility] [address] [id number] [address] [place] [address], [place] [address] Apr, [facility] [address] [id number] [address] [place] [address], [place] [address] Apr, [facility] [address] [id number] [address] [place] [address], [place] [address] Apr, [facility] [address] [id number] [address] [place] [address], [place] [address] Apr, [facility] [address] [id number] [address] [place] [address], [place] [address] Apr, [facility] [address] [id number] [address] [place] [address], [place] [address] Mar, [facility] [address] [id number] [address] [place] [address], [place] [address] Mar, [facility] [address] [id number] [address] [place] [address], [place] [address] Mar, [facility] [address] [id number] [address] [place] [address], [place] [address] Mar, [facility] [address] [id number] [address] [place] [address], [place] [address] Mar, [facility] [address] [id number] [address] [place] [address], [place] [address] Mar, [facility] [address] [id number] [address] [place] [address], [place] [address] Mar, [facility] [address] [id number] [address] [place] [address], [place] [address] Mar, [facility] [address] [id number] [address] [place] [address], [place] [address] Feb, [facility] [address] [id number] [address] [place] [address], [place] [address] Feb, [facility] [address] [id number] [address] [place] [address], [place] [address] January, [facility] [address] [id number] [address] [place] [address], [place] [address] January, [facility] [address] [id number] [address] [place] [address], [place] [address] Dec, [facility] [address] [id number] [address] [place] [address], [place] [address] Dec, [facility] [address] [id number] [address] [place] [address], [place] [address] Nov, [facility] [address] [id number] [address] [place] [address], [place] [address] Nov, [facility] [address] [id number] [address] [place] [address], [place] [address] Nov, [facility] [address] [id number] [address] [place] [address], [place] [address] Nov, [facility] [address] [id number] [address] [place] [address], [place] [address] Oct, [facility] [address] [id number] [address] [place] [address], [place] [address] Oct, [facility] [address] [id number] [address] [place] [address], [place] [address] Oct, [facility] [address] [id number] [address] [place] [address], [place] [address] Oct, [facility] [address] [id number] [address] [place] [address], [place] [address] 16 Oct, 2012 [facility] [address] [id number] [address] [place] [address], [place] [address] 14 Oct, 2012 [facility] [address] [id number] [address] [place] [address], [place] [address] 08 Oct, 2012 [facility] [address] [id number] [address] [place] [address], [place] [address] 07 Oct, 2012 [facility] [address] [id number] [address] [place] [address], [place] [address] 03 Oct, 2012 [facility] [address] [id number] [address] [place] [address], [place] [address] Sep, [facility] [address] [id number] [address] [place] [address], [place] [address] Sep, [facility] [address] [id number] [address] [place] [address], [place] [address] Sep, [facility] [address] [id number] [address] [place] [address], [place] [address] Sep, [facility] [address] [id number] [address] [place] [address], [place] [address] Sep, [facility] [address] [id number] [address] [place] [address], [place] [address] Sep, [facility] [address] [id number] [address] [place] [address], [place] [address] Sep, [facility] [address] [id number] [address] [place] [address], [place] [address] Sep, [facility] [address] [id number] [address] [place] [address], [place] [address] Aug, [facility] [address] [id number] [address] [place] [address], [place] [address] Aug, [facility] [address] [id number] [address] [place] [address], [place] [address] Aug, [facility] [address] [id number] [address] [place] [address], [place] [address] Aug, [facility] [address] [id number] [address] [place] [address], [place] [address] Aug, [facility] [address] [id number] [address] [place] [address], [place] [address] Aug, [facility] [address] [id number] [address] [place] [address], [place] [address] Aug, [facility] [address] [id number] [address] [place] [address], [place] [address] Aug, [facility] [address] [id number] [address] [place] [address], [place] [address] Jul, [facility] [address] [id number] [address] [place] [address], [place] [address] Jul, [facility] [address] [id number] [address] [place] [address], [place] [address] Jul, [facility] [address] [id number] [address] [place] [address], [place] [address] Jul, [facility] [address] [id number] [address] [place] [address], [place] [address] Jul, [facility] [address] [id number] [address] [place] [address], [place] [address] Jul, [facility] [address] [id number] [address] [place] [address], [place] [address] Jun, [facility] [address] [id number] [address] [place] [address], [place] [address] 25 Jun, 2012 [facility] [address] [id number] [address] [place] [address], [place] [address] Jun, [facility] [address] [id number] [address] [place] [address], [place] [address] Jun, [facility] [address] [id number] [address] [place] [address], [place] [address] Jun, [facility] [address] [id number] [address] [place] [address], [place] [address] Jun, [facility] [address] [id number] [address] [place] [address], [place] [address] 19 Jun, 2012 [facility] [address] [id number] [address] [place] [address], [place] [address] 10 Jun, 2012 [facility] [address] [id number] [address] [place] [address], [place] [address] 10 Jun, 2012 [facility] [address] [id number] [address] [place] [address], [place] [address] 26 May, 2012 [facility] [address] [id number] [address] [place] [address], [place] [address] 24 May, 2012 [facility] [address] [id number] [address] [place] [address], [place] [address] 18 May, 2012 [facility] [address] [id number] [address] [place] [address], [place] [address] 30 Apr, 2012 [facility] [address] [id number] [address] [place] [address], [place] [address] 29 Apr, 2012 [facility] [address] [id number] [address] [place] [address], [place] [address] 18 Apr, 2012 [facility] [address] [id number] [address] [place] [address], [place] [address] 14 Apr, 2012 [facility] [address] [id number] [address] [place] [address], [place] [address] Apr, [facility] [address] [id number] [address] [place] [address], [place] [address] Apr, [facility] [address] [id number] [address] [place] [address], [place] [address] Mar, [facility] [address] [id number] [address] [place] [address], [place] [address] Mar, [facility] [address] [id number] [address] [place] [address], [place] [address] Mar, [facility] [address] [id number] [address] [place] [address], [place] [address] Mar, [facility] [address] [id number] [address] [place] [address], [place] [address] Feb, [facility] [address] [id number] [address] [place] [address], [place] [address] Feb, [facility] [address] [id number] [address] [place] [address], [place] [address] Feb, [facility] [address] [id number] [address] [place] [address], [place] [address] Feb, [facility] [address] [id number] [address] [place] [address], [place] [address] Feb, [facility] [address] [id number] [address] [place] [address], [place] [address] January, [facility] [address] [id number] [address] [place] [address], [place] [address] January, [facility] [address] [id number] [address] [place] [address], [place] [address] January, [facility] [address] [id number] [address] [place] [address], [place] [address] January, [facility] [address] [id number] [address] [place] [address], [place] [address] January, [facility] [address] [id number] [address] [place] [address], [place] [address] January, [facility] [address] [id number] [address] [place] [address], [place] [address] 24 Dec, 2011 [facility] [address] [id number] [address] [place] [address], [place] [address] 24 Dec, 2011 [facility] [address] [id number] [address] [place] [address], [place] [address] Dec, [facility] [address] [id number] [address] [place] [address], [place] [address] Dec, [facility] [address] [id number] [address] [place] [address], [place] [address] Dec, [facility] [address] [id number] [address] [place] [address], [place] [address] 27 Nov, 2011 [facility] [address] [id number] [address] [place] [address], [place] [address] 14 Nov, 2011 [facility] [address] [id number] [address] [place] [address], [place] [address] 12 Nov, 2011 [facility] [address] [id number] [address] [place] [address], [place] [address] 07 Nov, 2011 [facility] [address] [id number] [address] [place] [address], [place] [address] 29 Oct, 2011 [facility] [address] [id number] [address] [place] [address], [place] [address] 28 Oct, 2011 [facility] [address] [id number] [address] [place] [address], [place] [address] 24 Oct, 2011 [facility] [address] [id number] [address] [place] [address], [place] [address] 13 Oct, 2011 [facility] [address] [id number] [address] [place] [address], [place] [address] 08 Oct, 2011 [facility] [address] [id number] [address] [place] [address], [place] [address] Sep, [facility] [address] [id number] [address] [place] [address], [place] [address] Sep, [facility] [address] [id number] [address] [place] [address], [place] [address] Sep, [facility] [address] [id number] [address] [place] [address], [place] [address] Sep, [facility] [address] [id number] [address] [place] [address], [place] [address] Sep, [facility] [address] [id number] [address] [place] [address], [place] [address] Sep, [facility] [address] [id number] [address] [place] [address], [place] [address] Aug, [facility] [address] [id number] [address] [place] [address], [place] [address] Aug, [facility] [address] [id number] [address] [place] [address], [place] [address] Aug, [facility] [address] [id number] [address] [place] [address], [place] [address] Jul, [facility] [address] [id number] [address] [place] [id number] Jul, [facility] [address] [id number] [address] [place] [id number] Jul, [facility] [address] [id number] [address] [place] [id number] Jul, [facility] [address] [id number] [address] [place] [address], [place] [address] Jun, [facility] [address] [id number] [address] [place] [address], [place] [address] Jun, [facility] [address] [id number] [address] [place] [id number] Jun, [facility] [address] [id number] [address] [place] [id number] 10 Jun, 2011 [facility] [address] [id number] [address] [place] [address], [place] [address] 10 Jun, 2011 [facility] [address] [id number] [address] [place] [address], [place] [address] 10 Jun, 2011 [facility] [address] [id number] [address] [place] [address], [place] [address] 11 Mar, 2011 [facility] [address] [id number] [address] [place] [address], [place] [address] 18 Dec, 2010 [facility] [address] [id number] [address] [place] [address], [place] [address] 11 Dec, 2010 [facility] [address] [id number] [address] [place] [address], [place] [address] 18 Nov, 2010 [facility] [address] [id number] [address] [place] [address], [place] [address] 16 Nov, 2010 [facility] [address] [id number] [address] [place] [address], [place] [address] 10 Sep, 2010 [facility] [address] [id number] [address] [place] [address], [place] [address] 31 Aug, 2010 [facility] [address] [id number] [address] [place] [address], [place] [address] 29 Aug, 2010 [facility] [address] [id number] [address] [place] [address], [place] [address] 29 Aug, 2010 [facility] [address] [id number] [address] [place] [address], [place] [address] 29 Aug, 2010 [facility] [address] [id number] [address] [place] [address], [place] [address] 27 Aug, 2010 [facility] [address] [id number] [address] [place] [address], [place] [address] 14 Aug, 2010 [facility] [address] [id number] [address] [place] [address], [place] [address] 08 Aug, 2010 [facility] [address] [id number] [address] [place] [address], [place] [address] 08 Aug, 2010 [facility] [address] [id number] [address] [place] [address], [place] [address] Aug, [facility] [address] [id number] [address] [place] [address], [place] [address] Aug, [facility] [address] [id number] [address] [place] [address], [place] [address] Aug, [facility] [address] [id number] [address] [place] [address], [place] [address] Aug, [facility] [address] [id number] [address] [place] [address], [place] [address] Jul, [facility] [address] [id number] [address] [place] [address], [place] [address] Jul, [facility] [address] [id number] [address] [place] [address], [place] [address] Jul, [facility] [address] [id number] [address] [place] [address], [place] [address] Jul, [facility] [address] [id number] [address] [place] [address], [place] [address] Jul, [facility] [address] [id number] [address] [place] [address], [place] [address] Jul, [facility] [address] [id number] [address] [place] [address], [place] [address] 24 Jun, 2010 [facility] [address] [id number] [address] [place] [address], [place] [address] Jun, [facility] [address] [id number] [address] [place] [address], [place] [address] Jun, [facility] [address] [id number] [address] [place] [address], [place] [address] Jun, [facility] [address] [id number] [address] [place] [address], [place] [address] Apr, [facility] [address] [id number] [address] [place] [address], [place] [address] Mar, [facility] [address] [id number] [address] [place] [address], [place] [address] Feb, [facility] [address] [id number] [address] [place] [address], [place] [address] January, [facility] [address] [id number] [address] [place] [address], [place] [address] 15 Dec, 2009 [facility] [address] [id number] [address] [place] [address], [place] [address] Nov, [facility] [address] [id number] [address] [place] [address], [place] [address] 31 Aug, 2009 [facility] [address] [id number] [address] [place] [address], [place] [id number] Aug, [facility] [address] [id number] [address] [place] [phone] Aug, [facility] [address] [id number] [address] [place] [address], [place] [phone] Jul, [facility] [address] [id number] [address] [place] [phone] Jul, [facility] [address] [id number] [address] [place] [phone] Jul, [facility] [address] [id number] [address] [place] [phone] 30 Jun, 2009 [facility] [address] [id number] [address] [place] [address], [place] [phone] 29 Jun, 2009 [facility] [address] [id number] [address] [place] [phone] Jun, [facility] [address] [id number] [address] [place] [address], [place] [phone] Jun, [facility] [address] [id number] [address] [place] [phone] Jun, [facility] [address] [facility] [id number] [address] [place] [phone] Jun, [facility] [address] [facility] [id number] [address] [place] [phone] Apr, [facility] [address] [facility] [id number] [address] [place] [phone] Apr, [facility] [address] [facility] [id number] [address] [place] [phone] Feb, [facility] [address] [facility] [id number] [address] [place] [phone] January, [facility] [address] [facility] [id number] [address] [place] [phone] Dec, IMMUNIZATIONS No Known Immunizations SOCIAL HISTORY Never Assessed REASON FOR VISIT PLAN OF CARE VITAL SIGNS Height 67 in 2014-03-04 Weight 347.8 lbs 2014-03-04 Temperature 97.1 degrees Fahrenheit 2014-03-04 Heart Rate 72 bpm 2014-03-04 Respiratory Rate 26 2014-03-04 Blood pressure systolic 168 mmHg 2014-03-04 Blood pressure diastolic 108 mmHg 2014-03-04 MEDICATIONS Unknown Medications RESULTS No Results PROCEDURES Procedure Date Ordered Result Body Site THER/PROPH/DIAG INJ, SC/IM March 04, 2014 INJ KETOROLAC TROMETHAMINE 15 MG March 04, 2014 COMPLETE CBC W/AUTO DIFF WBC March 04, 2014 ASSAY THYROID STIM HORMONE March 04, 2014 GLYCATED HEMOGLOBIN TEST March 04, 2014 MICROALBUMIN, SEMIQUANT March 04, 2014 LIPID PANEL March 04, 2014 COMPREHEN METABOLIC PANEL March 04, 2014 PHENERGAN 12.5 MG March 04, 2014 VISIT March 04, 2014 VENIPUNCT, ROUTINE* March 04, 2014 INSTRUCTIONS MEDICATIONS ADMINISTERED No Known Medications MEDICAL (GENERAL) HISTORY Type Description Date Medical History type II diabetes Medical History coronary artery disease stress test Medical History chronic obstructive pulmonary disease (C OPD) Medical History gastroesophageal reflux disease (GERD) Medical History acute renal failure Medical History erectile dysfunction Medical History hyperlipidemia Medical History obesity Medical History skin cancer-basal cell R bahai (removed ) Medical History Arthritis Medical History [...] [facility] ([facility] ) Surgical History heart cath: CAD w/ [...] History inability to urinate 09/16/15 Hospitalization History [facility] 1999' Hospitalization History hyperkalemia 10/2017 Hospitalization History fluid in lung
--- OUTSIDE RECORDS SUMMARY | 2020-03-01 17:10 | XMS REPORT ---
Author Author Michele Lazaro Organization [facility] Address Unknown Care Team Providers Care Cutter Inspector Name Role Phone ALYSE Lazaro Unavailable PROBLEMS Type Condition ICD9-CM Code FYV38-XH Code Onset Dates Condition S tatus SNOMED Code Problem Cough R05 Active 03971916 Problem Benign prostatic hyperplasia with lower urinary tract symptoms, unspecified morphology N40.1 Active 92004 6007 Problem Eustachian tube dysfunction, unspecified laterality H69.80 Active 78106862 Problem Chronic pain G89.29 Active 5707824 1 Problem DM neuro manif type II E11.49 Active 51631693 Problem Diabetes E11.9 Active 37884648 Problem Leukocytosis D72.829 Active 1298341 06 Problem Falling R29.6 Active 195092119 Problem Pressure ulcer of other site, stage 3 L89.893 Active 278171329 Problem 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 Active 953589049 Problem Eye exam abnormal R93.8 Active 16 8700114 Problem Dysuria R30.0 Active 97465071 Problem Hypokalemia E87.6 Active 67394210 Problem Morbid obesity E66.01 Active 95395 6002 Problem Anxiety F41.9 Active 80423739 Problem Diabetic polyneuropathy associated with type 2 d iabetes mellitus E11.42 Active 14465910 Problem Essential hypertension I10 Active 65765000 Problem Bilateral primary osteoarthritis of knee M17.0 Active 408561636 Problem Polyneuropathy associated with underlying disease G63 Active 927540508 Problem Anemia of chronic illness D63.8 Acti ve 278623462 Problem Lymphocytosis D72.820 Active 153130 09 Problem Retinal edema H35.81 Active 475875 6 Problem Chronic lymphocytic leukemia C91.10 A ctive 93270337 Problem Bipolar disorder, in partial remission, most rec ent episode depressed F31.75 Active 70821004 Problem Pure hypercholesterolemia E78.00 Acti ve 881952017 Problem Primary osteoarthritis of right knee M17.11 Active 265948100776317 Problem Bipolar disorder F31.9 Active 137 19869 Problem Bipolar I disorder, most recent episode (or curr ent) mixed, moderate F31.62 Active 31714502 Problem Chronic diastolic (congestive) heart failure I50.3 2 Active 098444656 Problem Reactive airway disease J45.909 Active 639437906484 Problem Insomnia, unspecified type G47.00 Act sharon 858495189 Problem Other chronic pain G89.29 Active 8 2055801 Problem Other iron deficiency anemia D50.8 A ctive 63303425 Problem Mild cognitive impairment G31.84 Acti ve 389004993 Problem Skin cancer C44.90 Active 31447929 7 ALLERGIES No Information ENCOUNTERS Encounter Location Date Diagnosis [facility] [address] [facility] [id number] [address] [place] [address] Jun, [facility] [address] [place] [id number] [address] [place] [phone] Jun, [facility] [address] [place] [id number] [address] [place] [phone] Jun, [facility] [address] [place] [id number] [address] [place] [phone] Jun, [facility] [address] [place] [id number] [address] [place] [address] May, Bipolar disorder, in partial remission, most recent episode depressed F31.75 and Mild cognitive impairment G31.84 [facility] [address] [place] [id number] [address] [place] [address] May, [facility] [address] [facility] [id number] [address] [place] [phone] Apr, Chronic pain G89.29 and Bipo lar disorder F31.9 [facility] [address] [facility] [id number] [address] [place] [phone] Mar, Bipolar disorder F31.9 and C hronic pain G89.29 [facility] [address] [facility] [id number] [address] [place] [phone] Feb, Bipolar disorder F31.9 [facility] [address] [id number] [address] [place] [phone] 17 Feb, 2019 Cellulitis of right upper ex tremity L03.113 and Skin abrasion T14.8XXA [facility] [address] [id number] [address] [place] [id number] 17 Feb, 2019 Bipolar disorder, in partial remission, most recent episode depressed F31.75 and Mild cognitive impairment G31.84 [facility] [address] [id number] [address] [place] [address] Feb, Chronic pain G89.29 [facility] [address] [id number] [address] [place] [phone] 03 Feb, 2019 Bipolar disorder, in partial remission, most recent episode depressed F31.75 and Mild cognitive impairment G31.84 [facility] [address] [id number] [address] [place] [address] January, Bipolar disorder, in partial remission, most recent episode depressed F31.75 and Mild cognitive impairment G31.84 [facility] [address] [id number] [address] [place] [address] January, Chronic pain G89.29 and Bipo lar disorder F31.9 [facility] [address] [id number] [address] [place] [phone] January, Bipolar disorder, in partial remission, most recent episode depressed F31.75 and Mild cognitive impairment G31.84 [facility] [address] [id number] [address] [place] [phone] Dec, [facility] [address] [id number] [address] [place] [address] Dec, Chronic pain G89.29 and Bipo lar disorder F31.9 [facility] [address] [id number] [address] [place] [phone] Dec, Edema of both lower extremit ies R60.0 [facility] [address] [place] [id number] [address] [place] [address] Dec, Bipolar disorder F31.9 [place] [id number] [place] [address] Dec, Bipolar disorder, in partial remission, most recent episode depressed F31.75 and Mild cognitive impairment G31.84 [facility] [id number] [place] [address] Nov, [place] [address] [address] Nov, Chronic pain G89.29 [place] [address] [address] Nov, Bipolar disorder, in partial remission, most recent episode depressed F31.75 and Mild cognitive impairment G31.84 [place] [address] [place] [id number] [place] [address] Nov, Bipolar disorder F31.9 [place] [address] [place] [id number] [place] [phone] 04 Nov, 2018 Encounter for Medicare annua [...] unspecified morphology N40.1 and Essential hypertension I10 [place] [address] [place] [id number] [place] [address] Oct, Chronic pain G89.29 [place] [address] [place] [id number] [address] [place] [address] Oct, Diabetes E11.9 [place] [address] [place] [id number] [address] [place] [address] Oct, Bipolar I disorder, most rec ent episode (or current) mixed, moderate F31.62 and Mild cognitive impairment G31.84 [place] [address] [facility] [id number] [address] [place] [address] Oct, Bipolar I disorder, most rec ent episode (or current) mixed, moderate F31.62 and Mild cognitive impairment G31.84 [place] [address] [facility] [id number] [address] [place] [address] Sep, Bipolar I disorder, most rec ent episode (or current) mixed, moderate F31.62 and Mild cognitive impairment G31.84 [place] [address] [facility] [id number] [address] [place] [phone] Sep, [place] [address] [facility] [id number] [address] [place] [address] Sep, Diabetes E11.9 ; Hypoxia R09 .02 ; Hyperglycemia R73.9 ; Therapeutic drug monitoring Z51.81 ; BMI 50.0-59.9, adult Z68.43 and Skin cancer C44.90 [place] [address] [facility] [id number] [address] [place] [address] Sep, Chronic pain G89.29 [place] [address] [facility] [id number] [address] [place] [address] Sep, Bipolar I disorder, most rec ent episode (or current) mixed, moderate F31.62 [place] [address] [facility] [id number] [address] [place] [address] Sep, [place] [address] [facility] [id number] [address] [place] [address] Sep, [place] [address] [facility] [id number] [address] [place] [address] Aug, Chronic pain G89.29 [place] [address] [facility] [id number] [address] [place] [address] Aug, Bipolar I disorder, most rec ent episode (or current) mixed, moderate F31.62 [facility] [address] [id number] [address] [place] [address] Aug, Bipolar I disorder, most rec ent episode (or current) mixed, moderate F31.62 and Mild cognitive impairment G31.84 [facility] [address] [id number] [address] [place] [address] Jul, [facility] [address] [id number] [address] [place] [address] Jul, Chronic pain G89.29 [facility] [address] [id number] [address] [place] [address] Jul, Bipolar I disorder, most rec ent episode (or current) mixed, moderate F31.62 and Mild cognitive impairment G31.84 [facility] [address] [id number] [address] [place] [address] Jul, Bipolar I disorder, most rec ent episode (or current) mixed, moderate F31.62 and MCI (mild cognitive impairment) G31.84 [facility] [address] [id number] [address] [place] [phone] Jul, [facility] [address] [id number] [address] [place] [phone] Jul, [facility] [address] [id number] [address] [place] [phone] Jul, Bipolar I disorder, most rec ent episode (or current) mixed, moderate F31.62 [facility] [address] [id number] [address] [place] [phone] Jul, Chronic pain G89.29 [facility] [address] [id number] [address] [place] [address] Jun, Bipolar I disorder, most rec ent episode (or current) mixed, moderate F31.62 [facility] [address] [id number] [address] [place] [address] Jun, Pre-procedure lab exam Z01.8 12 [facility] [address] [id number] [address] [place] [id number] Jun, [facility] [address] [id number] [place] [id number] Jun, [facility] [address] [id number] [address] [place] [phone] Jun, [facility] [address] [id number] [address] [place] [address] Jun, Forgetfulness R68.89 ; Pre-s yncope R55 ; Localized edema R60.0 ; Other iron deficiency anemia D50.8 and BMI 50.0-59.9, adult Z68.43 [facility] [address] [id number] [address] [place] [address] Jun, Chronic pain G89.29 [facility] [address] [facility] [id number] [address] [place] [address] Jun, Chronic pain G89.29 [facility] [address] [id number] [address] [place] [address] Jun, Bipolar I disorder, most rec ent episode (or current) mixed, moderate F31.62 [facility] [address] [id number] [address] [place] [address] May, Chronic pain G89.29 [facility] [address] [id number] [address] [place] [phone] Apr, [facility] [address] [id number] [address] [place] [address] Apr, Chronic pain G89.29 [facility] [address] [id number] [address] [place] [address] Apr, Primary osteoarthritis of ri ght knee M17.11 [facility] [address] [id number] [address] [place] [address] Mar, [facility] [address] [address] Mar, BMI 50.0-59.9, adult Z68.43 and Bipolar disorder, in partial remission, most recent episode depressed F31.75 [place] [address] [address] Mar, Diabetes E11.9 ; Pure hyperc holesterolemia E78.00 ; Essential hypertension I10 ; Nausea with vomiting, unspecified R11.2 and Headache, unspecified headache type R51 [place] [address] [address] Mar, Bipolar I disorder, most rec ent episode (or current) mixed, moderate F31.62 [place] [address] [address] Mar, Bipolar I disorder, most rec ent episode (or current) mixed, moderate F31.62 [place] [address] [address] Mar, Chronic pain G89.29 [place] [address] [address] Mar, Bipolar I disorder, most rec ent episode (or current) mixed, moderate F31.62 [place] [address] [address] Feb, Bipolar I disorder, most rec ent episode (or current) mixed, moderate F31.62 [place] [address] [address] 14 Feb, 2018 Chronic pain G89.29 [place] [address] [id number] 06 Feb, 2018 Decubitus ulcer of right josselin t, stage 3 L89.893 and BMI 50.0-59.9, adult Z68.43 [place] [address] [address] Feb, Bipolar I disorder, most rec ent episode (or current) mixed, moderate F31.62 [place] [address] [facility] [id number] [address] [place] [address] Feb, [place] [address] [facility] [id number] [address] [place] [address] January, [place] [address] [facility] [id number] [address] [place] [address] January, Chronic pain G89.29 [place] [address] [facility] [id number] [address] [place] [address] January, Bipolar I disorder, most rec ent episode (or current) mixed, moderate F31.62 [place] [address] [place] [id number] [address] [place] [address] January, Bipolar I disorder, most rec ent episode (or current) mixed, moderate F31.62 [place] [address] [place] [id number] [address] [place] [address] Dec, Bipolar I disorder, most rec ent episode (or current) mixed, moderate F31.62 and BMI 50.0-59.9, adult Z68.43 [place] [address] [place] [id number] [place] [address] Dec, Bipolar I disorder, most rec ent episode (or current) mixed, moderate F31.62 [place] [address] [place] [id number] [address] [place] [address] Dec, Chronic pain G89.29 [place] [address] [place] [id number] [place] [address] Dec, DM neuro manif type II E11.4 9 ; Right flank pain R10.9 ; 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 [id number] [address] [place] [address] Nov, Bipolar I disorder, most rec ent episode (or current) mixed, moderate F31.62 [facility] [address] [facility] [id number] [address] [place] [address] Nov, Chronic pain G89.29 [facility] [address] [facility] [id number] [address] [place] [address] Nov, Bipolar I disorder, most rec ent episode (or current) mixed, moderate F31.62 [facility] [address] [facility] [id number] [address] [place] [address] Nov, Hypokalemia E87.6 [facility] [address] [facility] [id number] [address] [place] [address] Nov, Bipolar I disorder, most rec ent episode (or current) mixed, moderate F31.62 [facility] [address] [facility] [id number] [address] [place] [address] Oct, Chronic pain G89.29 [facility] [address] [facility] [id number] [address] [place] [address] Oct, BMI 50.0-59.9, adult Z68.43 and Bipolar I disorder, most recent episode (or current) mixed, moderate F31.62 [facility] [address] [facility] [id number] [address] [place] [address] Oct, Bipolar I disorder, most rec ent episode (or current) mixed, moderate F31.62 [facility] [address] [facility] [id number] [address] [place] [address] Oct, [facility] [address] [facility] [id number] [address] [place] [address] Oct, Hypokalemia E87.6 [facility] [address] [facility] [id number] [address] [place] [address] Oct, DM neuro manif type II E11.4 9 [facility] [address] [facility] [id number] [address] [place] [address] Oct, Bipolar I disorder, most rec ent episode (or current) mixed, moderate F31.62 [facility] [address] [facility] [id number] [address] [place] [address] 20 Oct, 2017 Bipolar I disorder, most rec ent episode (or current) mixed, moderate F31.62 [facility] [address] [facility] [id number] [address] [place] [address] 14 Oct, 2017 Hyperkalemia E87.5 ; Falling R29.6 ; BMI 50.0-59.9, adult Z68.43 and Acute left ankle pain M25.572 [facility] [address] [place] [id number] [address] [place] [address] 08 Oct, 2017 DM neuro manif type II E11.4 9 [facility] [address] [facility] [id number] [address] [place] [address] Oct, [facility] [address] [facility] [id number] [address] [place] [address] Sep, Chronic pain G89.29 [facility] [address] [place] [id number] [address] [place] [address] Sep, [facility] [address] [place] [id number] [address] [place] [address] Sep, Bilateral primary osteoarthr itis of knee M17.0 [facility] [address] 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 ; Anemia of chronic illness D63.8 and BMI 50.0- 59.9, adult Z68.43 [facility] [address] [place] [id number] [address] [place] [address] Sep, [facility] [address] [place] [id number] [address] [place] [address] Sep, Bipolar I disorder, most rec ent episode (or current) mixed, moderate F31.62 [place] [address] [place] [id number] [address] [place] [address] Aug, Chronic pain G89.29 [place] [address] [place] [id number] [address] [place] [address] Aug, Generalized edema R60.1 [facility] [address] [place] [id number] [address] [place] [phone] Aug, [facility] [address] [place] [id number] [address] [place] [address] Aug, [facility] [address] [place] [id number] [place] [phone] Aug, Bipolar I disorder, most rec ent episode (or current) mixed, moderate F31.62 [place] [address] [id number] [place] [id number] Aug, Bipolar I disorder, most rec ent episode (or current) mixed, moderate F31.62 [place] [address] [id number] [place] [phone] Aug, Chronic pain G89.29 [facility] [id number] [place] [phone] Jul, Bipolar I disorder, most rec ent episode (or current) mixed, moderate F31.62 [place] [address] [place] [id number] [place] [id number] Jul, Bipolar I disorder, most rec ent episode (or current) mixed, moderate F31.62 and BMI 60.0-69.9, adult Z68.44 [place] [address] [address] [facility] [id number] [address] [place] [phone] Jul, Bipolar I disorder, most rec ent episode (or current) mixed, moderate F31.62 [place] [address] [address] [facility] [id number] [address] [place] [id number] Jul, Chronic pain G89.29 [place] [address] [place] [id number] [place] [id number] Jul, Bipolar I disorder, most rec ent episode (or current) mixed, moderate F31.62 [place] [address] [id number] [place] [phone] Jun, Polyneuropathy associated wi th underlying disease G63 and Diabetes E11.9 [place] [address] [address] [facility] [id number] [address] [place] [phone] Jun, Bipolar I disorder, most rec ent episode (or current) mixed, moderate F31.62 [place] [address] [place] [id number] [place] [phone] Jun, Chronic pain G89.29 [place] [address] [address] [facility] [id number] [address] [place] [phone] May, Bipolar I disorder, most rec ent episode (or current) mixed, moderate F31.62 [place] [address] [address] [facility] [facility] [id number] [address] [place] [phone] May, Bipolar I disorder, most rec ent episode (or current) mixed, moderate F31.62 [place] [address] [address] [facility] [id number] [address] [place] [phone] May, Diabetic polyneuropathy asso ciated with type 2 diabetes mellitus E11.42 [place] [address] [address] [facility] [id number] [address] [place] [phone] 18 May, 2017 Bipolar I disorder, most rec ent episode (or current) mixed, moderate F31.62 [facility] [address] [facility] [id number] [address] [place] [phone] 13 May, 2017 Bipolar I disorder, most rec ent episode (or current) mixed, moderate F31.62 [facility] [address] [facility] [id number] [address] [place] [phone] May, Chronic pain G89.29 [facility] [address] [id number] [address] [place] [phone] Apr, Bipolar I disorder, most rec ent episode (or current) mixed, moderate F31.62 [facility] [address] [facility] [id number] [address] [place] [phone] Apr, [facility] [address] [facility] [id number] [address] [place] [phone] Apr, Chronic pain G89.29 and DM n euro manif type II E11.49 [facility] [address] [facility] [id number] [address] [place] [phone] Apr, [facility] [address] [facility] [id number] [address] [place] [phone] Apr, Bipolar I disorder, most rec ent episode (or current) mixed, moderate F31.62 [facility] [address] [facility] [id number] [address] [place] [phone] Apr, Chronic pain G89.29 [facility] [address] [id number] [address] [place] [phone] Apr, Iliotibial band syndrome, le ft M76.32 [facility] [address] [facility] [id number] [address] [place] [phone] Apr, Bipolar I disorder, most rec ent episode (or current) mixed, moderate F31.62 [facility] [address] [facility] [id number] [address] [place] [id number] Mar, Bipolar I disorder, most rec ent episode (or current) mixed, moderate F31.62 [facility] [address] [id number] [address] [place] [phone] Mar, Bipolar I disorder, most rec ent episode (or current) mixed, moderate F31.62 [facility] [address] [facility] [id number] [address] [place] [phone] Mar, [facility] [address] [id number] [address] [place] [phone] Mar, Bipolar I disorder, most rec ent episode (or current) mixed, moderate F31.62 [place] [address] [address] [facility] [id number] [address] [place] [phone] Mar, Chronic pain G89.29 [facility] [address] [facility] [id number] [address] [place] [phone] Mar, Bipolar I disorder, most rec ent episode (or current) mixed, moderate F31.62 [facility] [address] [facility] [id number] [address] [place] [phone] Mar, Bipolar I disorder, most rec ent episode (or current) mixed, moderate F31.62 [facility] [address] [facility] [id number] [address] [place] [phone] Mar, Acute pain of left knee M25. 562 ; Left hip pain M25.552 ; Generalized edema R60.1 and Tongue swelling R22.0 [facility] [address] [facility] [id number] [address] [place] [phone] Mar, [facility] [address] [facility] [id number] [address] [place] [phone] Feb, Chronic pain G89.29 [facility] [address] [facility] [id number] [address] [place] [phone] Feb, Diabetes E11.9 [facility] [address] [facility] [id number] [address] [place] [phone] January, Chronic pain G89.29 [facility] [address] [facility] [id number] [address] [place] [phone] January, [facility] [address] [facility] [id number] [address] [place] [phone] January, Bipolar I disorder, most rec ent episode (or current) mixed, moderate F31.62 [facility] [address] [facility] [id number] [address] [place] [phone] Dec, Bipolar I disorder, most rec ent episode (or current) mixed, moderate F31.62 [facility] [address] [facility] [id number] [address] [place] [phone] Dec, Chronic pain G89.29 [facility] [address] [facility] [id number] [address] [place] [phone] Dec, Bipolar I disorder, most rec ent episode (or current) mixed, moderate F31.62 [place] [address] [address] [facility] [id number] [address] [place] [phone] Dec, Diabetes E11.9 ; Essential h ypertension I10 ; Chronic pain G89.29 and Morbid obesity E66.01 [facility] [address] [facility] [id number] [address] [place] [phone] Dec, [facility] [address] [facility] [id number] [address] [place] [phone] Dec, Bipolar I disorder, most rec ent episode (or current) mixed, moderate F31.62 [facility] [address] [facility] [id number] [address] [place] [phone] Dec, Bipolar I disorder, most rec ent episode (or current) mixed, moderate F31.62 [facility] [address] [facility] [id number] [address] [place] [phone] Nov, Chronic pain G89.29 [facility] [address] [facility] [id number] [address] [place] [phone] Nov, Bipolar I disorder, most rec ent episode (or current) mixed, moderate F31.62 [facility] [address] [facility] [id number] [address] [place] [phone] Nov, [facility] [address] [facility] [id number] [address] [place] [phone] Nov, Bipolar I disorder, most rec ent episode (or current) mixed, moderate F31.62 [facility] [address] [facility] [id number] [address] [place] [phone] Nov, Bipolar I disorder, most rec ent episode (or current) mixed, moderate F31.62 [facility] [address] [facility] [id number] [address] [place] [phone] Nov, [facility] [address] [facility] [id number] [address] [place] [phone] Nov, [facility] [address] [facility] [id number] [address] [place] [phone] Nov, [facility] [address] [facility] [id number] [address] [place] [phone] Oct, Chronic pain G89.29 [facility] [address] [facility] [id number] [address] [place] [phone] Oct, Bipolar I disorder, most rec ent episode (or current) mixed, moderate F31.62 [facility] [address] 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 [id number] [address] [place] [phone] 10 Oct, 2016 [facility] [address] [facility] [id number] [address] [place] [id number] 06 Oct, 2016 Diabetes E11.9 [facility] [address] [id number] [address] [place] [phone] Oct, Bipolar I disorder, most rec ent episode (or current) mixed, moderate F31.62 [facility] [address] [id number] [address] [place] [phone] Sep, Chronic pain G89.29 [facility] [address] [id number] [address] [place] [phone] Sep, Chronic pain G89.29 [facility] [address] [id number] [address] [place] [phone] Aug, Chronic pain G89.29 [facility] [address] [id number] [address] [place] [phone] Jul, [facility] [address] [facility] [id number] [address] [place] [phone] Jul, Diabetes E11.9 [facility] [address] [id number] [address] [place] [phone] Jul, Chronic pain G89.29 [facility] [address] [id number] [address] [place] [phone] Jul, Bipolar I disorder, most rec ent episode (or current) mixed, moderate F31.62 [facility] [address] [facility] [id number] [address] [place] [phone] Jun, Bipolar I disorder, most rec ent episode (or current) mixed, moderate F31.62 [facility] [address] [id number] [address] [place] [phone] Jun, [facility] [address] [facility] [id number] [address] [place] [phone] Jun, Bipolar I disorder, most rec ent episode (or current) mixed, moderate F31.62 [facility] [address] [facility] [id number] [address] [place] [phone] May, Insomnia, unspecified type G 47.00 [facility] [address] [id number] [address] [place] [id number] May, Bipolar I disorder, most rec ent episode (or current) mixed, moderate F31.62 [facility] [address] [facility] [id number] [address] [place] [phone] 14 May, 2016 [facility] [address] [facility] [id number] [address] [place] [phone] May, Bipolar I disorder, most rec ent episode (or current) mixed, moderate F31.62 [facility] [address] [id number] [address] [place] [id number] May, Diabetes E11.9 and Essential hypertension I10 [facility] [address] [facility] [id number] [address] [place] [phone] Apr, Chronic pain G89.29 [place] [address] [address] [facility] [id number] [address] [place] [phone] Apr, Bipolar I disorder, most rec ent episode (or current) mixed, moderate F31.62 [facility] [address] [facility] [id number] [address] [place] [phone] Apr, [facility] [address] [facility] [id number] [address] [place] [id number] Apr, [facility] [address] [facility] [id number] [address] [place] [phone] Mar, Chronic pain G89.29 ; Headac he, unspecified headache type R51 ; Neuropathy G62.9 ; Pain of right hip joint M25.551 and Essential hypertension I10 [facility] [address] [facility] [id number] [address] [place] [phone] Mar, Chronic pain G89.29 [facility] [address] [facility] [id number] [address] [place] [phone] Mar, Bipolar I disorder, most rec ent episode (or current) mixed, moderate F31.62 [facility] [address] [id number] [address] [place] [phone] Feb, Bipolar I disorder, most rec ent episode (or current) mixed, moderate F31.62 and Insomnia, unspecified type G47.00 [facility] [address] [id number] [address] [place] [phone] Feb, Chronic pain G89.29 [facility] [address] [id number] [address] [place] [phone] Feb, Bipolar I disorder, most rec ent episode (or current) mixed, moderate F31.62 [facility] [address] [id number] [address] [place] [phone] January, Bipolar I disorder, most rec ent episode (or current) mixed, moderate F31.62 [facility] [address] [facility] [id number] [address] [place] [phone] January, Chronic pain G89.29 [facility] [address] [id number] [address] [place] [phone] January, Chronic pain G89.29 and Esse ntial hypertension I10 [facility] [address] [id number] [address] [place] [phone] January, Bipolar I disorder, most rec ent episode (or current) mixed, moderate F31.62 [facility] [address] [facility] [id number] [address] [place] [id number] Dec, [facility] [address] [facility] [id number] [address] [place] [phone] Dec, [facility] [address] [facility] [id number] [address] [place] [phone] Dec, [facility] [address] [facility] [id number] [address] [place] [phone] Dec, [facility] [address] [facility] [id number] [address] [place] [phone] Nov, Reactive airway disease J45. 909 [facility] [address] [place] [id number] [address] [place] [phone] Nov, [facility] [address] [phone] Nov, [facility] [address] [place] [id number] [address] [place] [phone] 30 Nov, 2015 [facility] [address] [address] Nov, [facility] [address] [id number] Nov, Onychomycosis B35.1 ; Hammer toe M20.40 ; [place] or callus L84 and DM neuro manif type II E11.49 [place] [address] [address] Nov, Chronic pain G89.29 ; Leukoc ytosis D72.829 and Diabetes E11.9 [place] [address] [address] Nov, [facility] [address] [address] Oct, Bronchitis J40 [place] [id number] [id number] Oct, [place] [address] [address] Oct, [facility] [address] [address] Oct, Mastoiditis, unspecified lat erality H70.90 and Type 2 diabetes mellitus with complication E11.8 [place] [address] [address] [place] [id number] [address] [place] [phone] Sep, [facility] [address] [place] [id number] [address] [place] [phone] Sep, Dysuria R30.0 ; Cough R05 ; Benign prostatic hyperplasia with lower urinary tract symptoms, unspecified morphology N40.1 ; Hypokalemia E87.6 and Eustachian tube dysfunction, unspecified laterality H69.80 [facility] [address] [facility] [id number] [address] [place] [id number] Sep, Moderate mixed bipolar I dis order F31.62 [facility] [address] [facility] [id number] [address] [place] [id number] Sep, Hypokalemia E87.6 [facility] [address] [facility] [id number] [address] [place] [phone] Sep, [facility] [address] [place] [id number] [address] [place] [phone] Sep, Upper respiratory tract infe ction, unspecified type J06.9 [facility] [address] [place] [id number] [address] [place] [phone] Aug, [facility] [address] [facility] [id number] [address] [place] [phone] Aug, Dysuria R30.0 [facility] [address] [facility] [id number] [address] [place] [id number] Aug, [facility] [address] [facility] [id number] [address] [place] [phone] Jul, [facility] [address] [facility] [id number] [address] [place] [phone] Jul, [facility] [address] [facility] [id number] [address] [place] [phone] Jul, [facility] [address] [facility] [id number] [address] [place] [phone] Jul, [facility] [address] [place] [id number] [address] [place] [phone] Jun, [facility] [address] [place] [id number] [address] [place] [phone] Jun, [facility] [address] [facility] [id number] [address] [place] [phone] Jun, [facility] [address] [facility] [id number] [address] [place] [phone] May, [facility] [address] [facility] [id number] [address] [place] [phone] May, Bipolar I disorder, most rec ent episode (or current) mixed, moderate 296.62 [facility] [address] [facility] [id number] [address] [place] [phone] May, [facility] [address] [facility] [id number] [address] [place] [phone] May, Bipolar I disorder, most rec ent episode (or current) mixed, moderate 296.62 and Major depressive disorder, recurrent episode, severe, specified as with psychotic behavior 296.34 [facility] [address] [place] [id number] [address] [place] [id number] May, Bipolar I disorder, most rec ent episode (or current) mixed, moderate 296.62 [facility] [address] [facility] [id number] [address] [place] [id number] May, [facility] [address] [facility] [id number] [address] [place] [phone] Apr, [facility] [address] [facility] [id number] [address] [place] [id number] Apr, [facility] [address] [place] [id number] [address] [place] [id number] Apr, Unspecified disorder of kidn ey and ureter 593.9 and Diabetes mellitus type 2, uncontrolled 250.02 [facility] [address] [facility] [id number] [address] [place] [id number] Apr, [facility] [address] [facility] [id number] [address] [place] [id number] Apr, [facility] [address] [place] [id number] [address] [place] [id number] Apr, [facility] [id number] [place] [id number] Apr, [facility] [address] [place] [id number] [address] [place] [phone] Apr, Diabetes mellitus type II, u ncontrolled 250.02 [facility] [address] [place] [id number] [address] [place] [id number] Apr, [facility] [address] [id number] Mar, [facility] [address] [id number] Mar, [facility] [address] [id number] Mar, [facility] [address] [place] [id number] [address] [place] [phone] Mar, Major depressive disorder, r ecurrent episode, severe, specified as with psychotic behavior 296.34 and Bipolar I disorder, most recent episode (or current) mixed, moderate 296.62 [facility] [address] [place] [id number] [address] [place] [phone] Mar, Diabetes 250.00 ; Anuria 788 .5 ; Nausea and vomiting 787.01 and Diarrhea 787.91 [facility] [address] [place] [id number] [address] [place] [phone] Mar, Diabetes 250.00 [facility] [address] [place] [id number] [address] [place] [id number] Mar, [facility] [address] [place] [id number] [address] [place] [id number] Mar, Diabetes 250.00 [facility] [facility] [address] [id number] [address] [place] [address] Mar, [facility] [address] [id number] [address] [place] [address] Mar, [facility] [address] [address] Mar, [facility] [address] [address] Mar, [facility] [address] [address] Mar, Bipolar I disorder, most rec ent episode (or current) mixed, moderate 296.62 and Major depressive disorder, recurrent episode, severe, specified as with psychotic behavior 296.34 [place] [address] [address] Mar, Magnesium deficiency 275.2 ; Hypokalemia 276.8 ; Nausea & vomiting 787.01 and Diabetes mellitus type 2, uncontrolled 250.02 [place] [address] [address] Feb, [place] [address] [address] Feb, Bipolar I disorder, most rec ent episode (or current) mixed, moderate 296.62 [place] [address] [address] Feb, Nausea and vomiting 787.01 ; Left elbow pain 719.42 ; Anuria 788.5 and Diabetes 250.00 [place] [address] [address] Feb, [place] [address] [address] Feb, Hypopotassemia 276.8 and Hyp okalemia 276.[address] [address] Feb, Hypopotassemia 276.8 and Hyp okalemia 276.8 [place] [address] [address] Feb, Seborrheic keratoses 702.19 [facility] [address] [id number] [address] [place] [address] Feb, Hypopotassemia 276.8 and Low magnesium levels 275.2 [facility] [address] [id number] [address] [place] [address] January, [facility] [address] [id number] [address] [place] [address] January, [facility] [address] [id number] [address] [place] [address] January, [facility] [address] [id number] [address] [place] [address] January, Scalp lesion 709.9 [facility] [address] [id number] [address] [place] [address] January, [facility] [address] [facility] [id number] [address] [place] [address] Dec, Tear of medial cartilage or meniscus of knee, current 836.0 and 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 [facility] [address] [id number] [address] [place] [address] Dec, [facility] [address] 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 [id number] [address] [place] [address] Nov, [facility] [address] [id number] [facility] [place] [address] Nov, [facility] [address] [id number] [address] [place] [address], [place] [address] Nov, [facility] [address] [id number] [address] [place] [address], [place] [address] Nov, [facility] [address] [id number] [address] [place] [address], [place] [address] Nov, [facility] [address] [id number] [address] [place] [address], [place] [address] Nov, [facility] [address] [id number] [address] [place] [address], [place] [address] Nov, [facility] [address] [id number] [address] [place] [address], [place] [address] Nov, [facility] [address] [id number] [address] [place] [address], [place] [address] Nov, [facility] [address] [id number] [address] [place] [address], [place] [address] Nov, [facility] [address] [id number] [address] [place] [address], [place] [address] Nov, [facility] [address] [id number] [address] [place] [address], [place] [address] Oct, 2014 [facility] [address] [id number] [address] [place] [address], [place] [address] Oct, 2014 [facility] [address] [id number] [address] [place] [address], [place] [address] Oct, 2014 [facility] [address] [id number] [address] [place] [address], [place] [address] Oct, 2014 [facility] [address] [id number] [address] [place] [address], [place] [address] Oct, 2014 [facility] [address] [id number] [address] [place] [address], [place] [address] Oct, [facility] [address] [id number] [address] [place] [address], [place] [address] Oct, [facility] [address] [id number] [address] [place] [address], [place] [address] Oct, [facility] [address] [id number] [address] [place] [address], [place] [address] Oct, [facility] [address] [id number] [address] [place] [address], [place] [address] Sep, [facility] [address] [id number] [address] [place] [address], [place] [address] Sep, [facility] [address] [id number] [address] [place] [address], [place] [address] Sep, [facility] [address] [id number] [address] [place] [address], [place] [address] Sep, [facility] [address] [id number] [address] [place] [address], [place] [address] Sep, [facility] [address] [id number] [address] [place] [address], [place] [address] Sep, [facility] [address] [id number] [address] [place] [address], [place] [address] Sep, [facility] [address] [id number] [address] [place] [address], [place] [address] Sep, [facility] [address] [id number] [address] [place] [address], [place] [address] Sep, [facility] [address] [id number] [address] [place] [address], [place] [address] Sep, [facility] [address] [id number] [address] [place] [address], [place] [address] Sep, [facility] [address] [id number] [address] [place] [address] [address] Sep, [facility] [address] [id number] [address] [place] [address], [place] [address] Sep, [facility] [address] [id number] [address] [place] [address], [place] [address] Sep, [facility] [address] [id number] [address] [place] [address], [place] [address] Sep, [facility] [address] [id number] [address] [place] [address], [place] [address] Sep, [facility] [address] [id number] [address] [place] [address], [place] [address] Aug, [facility] [address] [id number] [address] [place] [address], [place] [address] Aug, [facility] [address] [id number] [address] [place] [address], [place] [address] Aug, [facility] [address] [id number] [address] [place] [address], [place] [address] Aug, [facility] [address] [id number] [address] [place] [address], [place] [address] Aug, [facility] [address] [id number] [address] [place] [address], [place] [address] Aug, [facility] [address] [id number] [address] [place] [address], [place] [address] Aug, [facility] [address] [id number] [address] [place] [address], [place] [address] Aug, [facility] [address] [id number] [address] [place] [address], [place] [address] Aug, [facility] [address] [id number] [address] [place] [address], [place] [address] Aug, [facility] [address] [id number] [address] [place] [address], [place] [address] Aug, [facility] [place] [id number] Aug, [facility] [address] [id number] [facility] [place] [address] Aug, [facility] [address] [id number] [facility] [place] [address] Aug, [facility] [address] [id number] [facility] [place] [address] Aug, [facility] [address] [id number] [facility] [place] [address] Aug, [facility] [address] [id number] [address] [place] [address], [place] [address] Aug, [facility] [address] [id number] [facility] [place] [address] Aug, [facility] [address] [id number] [address] [place] [address], [place] [address] Aug, [facility] [address] [id number] [address] [place] [address], [place] [address] Aug, [facility] [address] [id number] [address] [place] [address], [place] [address] Aug, [facility] [address] [id number] [address] [place] [address], [place] [address] Aug, [facility] [address] [id number] [address] [place] [address], [place] [address] Aug, [facility] [address] [id number] [address] [place] [address], [place] [address] Aug, [facility] [address] [id number] [address] [place] [address], [place] [address] Aug, [facility] [address] [id number] [address] [place] [address], [place] [address] Aug, [facility] [address] [id number] [address] [place] [address], [place] [address] Aug, [facility] [address] [id number] [address] [place] [address], [place] [address] Aug, [facility] [address] [id number] [address] [place] [address], [place] [address] Aug, [facility] [address] [id number] [address] [place] [address], [place] [address] Aug, [facility] [address] [id number] [address] [place] [address], [place] [address] Jul, [facility] [address] [id number] [address] [place] [address], [place] [address] Jul, [facility] [address] [id number] [address] [place] [address], [place] [address] Jul, [facility] [address] [id number] [address] [place] [address], [place] [address] Jul, [facility] [address] [id number] [address] [place] [address], [place] [address] Jul, [facility] [address] [id number] [address] [place] [address], [place] [address] Jul, [facility] [address] [id number] [address] [place] [address], [place] [address] Jul, [facility] [address] [id number] [address] [place] [address], [place] [address] Jul, [facility] [address] [id number] [address] [place] [address], [place] [address] Jul, [facility] [address] [id number] [address] [place] [address], [place] [address] Jul, [facility] [address] [id number] [address] [place] [address], [place] [address] Jun, [facility] [address] [id number] [address] [place] [address], [place] [address] Jun, [facility] [address] [id number] [address] [place] [address], [place] [address] 16 Jun, 2014 [facility] [address] [id number] [address] [place] [address], [place] [address] 16 Jun, 2014 [facility] [address] [id number] [address] [place] [address], [place] [address] 15 Jun, 2014 [facility] [address] [id number] [address] [place] [address], [place] [address] 15 Jun, 2014 [facility] [address] [id number] [address] [place] [address], [place] [address] Jun, [facility] [address] [id number] [address] [place] [address], [place] [address] Jun, [facility] [address] [id number] [address] [place] [address], [place] [address] Jun, [facility] [address] [id number] [address] [place] [address], [place] [address] Jun, [facility] [address] [id number] [address] [place] [address], [place] [address] 29 May, 2013 [facility] [address] [id number] [address] [place] [address], [place] [address] 29 Sep, 2013 [facility] [address] [id number] [address] [place] [address], [place] [address] 26 Sep, 2013 [facility] [address] [id number] [address] [place] [address], [place] [address] 26 Sep, 2013 [facility] [address] [id number] [address] [place] [address] 17 Sep, 2013 [facility] [address] [id number] [address] [place] [address], [place] [address] 17 Sep, 2013 [facility] [address] [id number] [address] [place] [address], [place] [address] 15 Sep, 2013 [facility] [address] [id number] [address] [place] [address], [place] [address] 15 May, 2013 [facility] [address] [id number] [facility] [place] [address] 15 May, 2013 [facility] [address] [id number] [address] [place] [address], [place] [address] 15 May, 2013 [facility] [address] [id number] [facility] [place] [address] 10 May, 2013 [facility] [address] [id number] [address] [place] [address], [place] [address] 10 May, 2013 [facility] [address] [id number] [address] [place] [address], [place] [address] 09 May, 2013 [facility] [address] [id number] [address] [place] [address], [place] [address] 09 May, 2013 [facility] [address] [id number] [address] [place] [address], [place] [address] 04 May, 2013 [facility] [address] [id number] [address] [place] [address], [place] [address] 04 May, 2013 [facility] [address] [id number] [address] [place] [address], [place] [address] Apr, [facility] [address] [id number] [address] [place] [address], [place] [address] Apr, [facility] [address] [id number] [address] [place] [address], [place] [address] Apr, [facility] [address] [id number] [address] [place] [address], [place] [address] Apr, [facility] [address] [id number] [address] [place] [address], [place] [address] Apr, [facility] [address] [id number] [address] [place] [address], [place] [address] Apr, [facility] [address] [id number] [address] [place] [address], [place] [address] Apr, [facility] [address] [id number] [address] [place] [address], [place] [address] Apr, [facility] [address] [id number] [facility] [place] [address] Apr, [facility] [address] [id number] [facility] [place] [address] Apr, [facility] [address] [id number] [facility] [place] [address] Apr, [facility] [address] [id number] [address] [place] [address], [place] [address] Apr, [facility] [address] [id number] [facility] [place] [address] Apr, [facility] [address] [id number] [address] [place] [address], [place] [address] Apr, [facility] [address] [id number] [address] [place] [address], [place] [address] Apr, [facility] [address] [id number] [address] [place] [address], [place] [address] Mar, [facility] [address] [id number] [address] [place] [address], [place] [address] Mar, [facility] [address] [id number] [address] [place] [address], [place] [address] Mar, [facility] [address] [id number] [address] [place] [address], [place] [address] Mar, [facility] [address] [id number] [address] [place] [address], [place] [address] Mar, [facility] [address] [id number] [address] [place] [address], [place] [address] Mar, [facility] [address] [id number] [address] [place] [address], [place] [address] Mar, [facility] [address] [id number] [address] [place] [address], [place] [address] Mar, [facility] [address] [id number] [address] [place] [address], [place] [address] Mar, 2013 [facility] [address] [id number] [address] [place] [address], [place] [address] Mar, 2013 [facility] [address] [id number] [address] [place] [address], [place] [address] Mar, 2013 [facility] [address] [id number] [address] [place] [address], [place] [address] Mar, 2013 [facility] [address] [id number] [address] [place] [address], [place] [address] Mar, 2013 [facility] [address] [id number] [address] [place] [address], [place] [address] Mar, 2013 [facility] [address] [id number] [address] [place] [address], [place] [address] Mar, 2013 [facility] [address] [id number] [address] [place] [address], [place] [address] Mar, 2013 [facility] [address] [id number] [address] [place] [address], [place] [address] Mar, 2013 [facility] [address] [id number] [address] [place] [address], [place] [address] Mar, [facility] [address] [id number] [address] [place] [address], [place] [address] Feb, [facility] [address] [id number] [address] [place] [address], [place] [address] Feb, [facility] [address] [id number] [address] [place] [address], [place] [address] Feb, [facility] [address] [id number] [address] [place] [address], [place] [address] Feb, [facility] [address] [id number] [address] [place] [address], [place] [address] Feb, [facility] [address] [id number] [address] [place] [address], [place] [address] Feb, [facility] [address] [id number] [facility] [place] [address] Feb, [facility] [address] [id number] [facility] [place] [address] Feb, [facility] [address] [id number] [facility] [place] [address] Feb, [facility] [address] [id number] [facility] [place] [address] Feb, [facility] [address] [id number] [facility] [place] [address] Feb, [facility] [address] [id number] [address] [place] [address], [place] [address] Feb, [facility] [address] [id number] [facility] [place] [address] Feb, [facility] [address] [id number] [address] [place] [address], [place] [address] Feb, [facility] [address] [id number] [address] [place] [address], [place] [address] January, [facility] [address] [id number] [address] [place] [address], [place] [address] January, [facility] [address] [id number] [address] [place] [address], [place] [address] January, [facility] [address] [id number] [address] [place] [address], [place] [address] January, [facility] [address] [id number] [address] [place] [address], [place] [address] January, [facility] [address] [id number] [address] [place] [address], [place] [address] January, [facility] [address] [id number] [facility] [place] [address] January, [facility] [address] [id number] [address] [place] [address], [place] [address] January, [facility] [address] [id number] [address] [place] [address], [place] [address] January, [facility] [address] [id number] [address] [place] [address], [place] [address] January, [facility] [address] [id number] [address] [place] [address], [place] [address] January, [facility] [address] [id number] [address] [place] [address], [place] [address] January, [facility] [address] [id number] [address] [place] [address], [place] [address] January, [facility] [address] [id number] [address] [place] [address], [place] [address] January, [facility] [address] [id number] [address] [place] [address], [place] [address] Dec, [facility] [address] [id number] [address] [place] [address], [place] [address] Dec, [facility] [address] [id number] [address] [place] [address], [place] [address] Dec, [facility] [address] [id number] [address] [place] [address], [place] [address] Dec, [facility] [address] [id number] [address] [place] [address], [place] [address] Dec, [facility] [address] [id number] [address] [place] [address], [place] [address] Dec, [facility] [address] [id number] [address] [place] [address], [place] [address] Dec, [facility] [address] [id number] [address] [place] [address], [place] [address] Dec, [facility] [address] [id number] [address] [place] [address], [place] [address] Dec, [facility] [address] [id number] [address] [place] [address], [place] [address] Dec, [facility] [address] [id number] [facility] [place] [address] Nov, [facility] [address] [id number] [address] [place] [address], [place] [address] Nov, [facility] [address] [id number] [address] [place] [address], [place] [address] Nov, [facility] [address] [id number] [address] [place] [address], [place] [address] Nov, [facility] [address] [id number] [address] [place] [address], [place] [address] Nov, [facility] [address] [id number] [address] [place] [address], [place] [address] Nov, [facility] [address] [id number] [address] [place] [address], [place] [address] Nov, [facility] [address] [id number] [address] [place] [address], [place] [address] Nov, [facility] [address] [id number] [address] [place] [address], [place] [address] Nov, [facility] [address] [id number] [address] [place] [address], [place] [address] Nov, [facility] [address] [id number] [address] [place] [address], [place] [address] Oct, [facility] [address] [id number] [address] [place] [address], [place] [address] Oct, [facility] [address] [id number] [address] [place] [address], [place] [address] Oct, [facility] [address] [id number] [address] [place] [address], [place] [address] Oct, [facility] [address] [id number] [address] [place] [address], [place] [address] Oct, [facility] [address] [id number] [address] [place] [address], [place] [address] Oct, [facility] [address] [id number] [address] [place] [address], [place] [address] Oct, [facility] [address] [id number] [address] [place] [address], [place] [address] Oct, [facility] [address] [id number] [address] [place] [address], [place] [address] Oct, [facility] [address] [id number] [address] [place] [address], [place] [address] Oct, [facility] [address] [id number] [address] [place] [address], [place] [address] Oct, [facility] [address] [id number] [address] [place] [address], [place] [address] Oct, [facility] [address] [id number] [address] [place] [address], [place] [address] Oct, [facility] [address] [id number] [address] [place] [address], [place] [address] Oct, [facility] [address] [id number] [address] [place] [address], [place] [address] Sep, [facility] [address] [id number] [address] [place] [address], [place] [address] Sep, [facility] [address] [id number] [address] [place] [address], [place] [address] Sep, [facility] [address] [id number] [address] [place] [address], [place] [address] Sep, [facility] [address] [id number] [address] [place] [address], [place] [address] Sep, [facility] [address] [id number] [address] [place] [address], [place] [address] Sep, [facility] [address] [id number] [address] [place] [address], [place] [address] 14 Sep, 2013 [facility] [address] [id number] [address] [place] [address], [place] [address] 14 Sep, 2013 [facility] [address] [id number] [address] [place] [address], [place] [address] 08 Sep, 2013 [facility] [address] [id number] [address] [place] [address], [place] [address] Sep, [facility] [address] [id number] [address] [place] [address], [place] [address] 10 Aug, 2013 [facility] [address] [id number] [address] [place] [address], [place] [address] Aug, [facility] [address] [id number] [address] [place] [address], [place] [address] Jul, [facility] [address] [id number] [address] [place] [address], [place] [address] Jul, [facility] [address] [id number] [address] [place] [address], [place] [address] Jul, [facility] [address] [id number] [address] [place] [address], [place] [address] Jul, [facility] [address] [id number] [address] [place] [address], [place] [address] Jul, [facility] [address] [id number] [address] [place] [address], [place] [address] Jul, [facility] [address] [id number] [address] [place] [address], [place] [address] Jul, [facility] [address] [id number] [address] [place] [address], [place] [address] Jul, [facility] [address] [id number] [address] [place] [address], [place] [address] Jul, [facility] [address] [id number] [address] [place] [address], [place] [address] Jul, [facility] [address] [id number] [address] [place] [address], [place] [address] Jul, 2012 [facility] [address] [id number] [address] [place] [address], [place] [address] Jul, 2012 [facility] [address] [id number] [address] [place] [address], [place] [address] Jul, 2012 [facility] [address] [id number] [address] [place] [address], [place] [address] Jul, 2012 [facility] [address] [id number] [address] [place] [address], [place] [address] Jul, 2012 [facility] [address] [id number] [address] [place] [address], [place] [address] Jul, [facility] [address] [id number] [address] [place] [address], [place] [address] Jul, [facility] [address] [id number] [address] [place] [address], [place] [address] Jul, [facility] [address] [id number] [address] [place] [address], [place] [address] Jul, [facility] [address] [id number] [address] [place] [address] Jun, [facility] [address] [id number] [address] [place] [address] Jun, 2012 [facility] [address] [id number] [address] [place] [address] Jun, 2012 [facility] [address] [id number] [address] [place] [address], [place] [address] Jun, [facility] [address] [id number] [address] [place] [address], [place] [address] Jun, 2012 [facility] [address] [id number] [address] [place] [address] Jun, 2012 [facility] [address] [id number] [address] [place] [address] Jun, [facility] [address] [id number] [address] [place] [address], [place] [address] Jun, [facility] [address] [id number] [address] [place] [address], [place] [address] Jun, [facility] [address] [id number] [address] [place] [address], [place] [address] Jun, [facility] [address] [id number] [address] [place] [address], [place] [address] Jun, [facility] [address] [id number] [address] [place] [address], [place] [address] 26 May, 2013 [facility] [address] [id number] [address] [place] [address], [place] [address] 25 May, 2013 [facility] [address] [id number] [address] [place] [address], [place] [address] 19 May, 2013 [facility] [address] [id number] [address] [place] [address], [place] [address] 17 May, 2013 [facility] [address] [id number] [address] [place] [address], [place] [address] 11 May, 2013 [facility] [address] [id number] [address] [place] [address], [place] [address] 10 May, 2013 [facility] [address] [id number] [address] [place] [address], [place] [address] May, [facility] [address] [id number] [address] [place] [address], [place] [address] 05 May, 2013 [facility] [address] [id number] [address] [place] [address], [place] [address] 30 Apr, 2013 [facility] [address] [id number] [address] [place] [address], [place] [address] Apr, [facility] [address] [id number] [address] [place] [address], [place] [address] Apr, [facility] [address] [id number] [address] [place] [address], [place] [address] Apr, [facility] [address] [id number] [address] [place] [address], [place] [address] Apr, [facility] [address] [id number] [address] [place] [address], [place] [address] Mar, [facility] [address] [id number] [address] [place] [address], [place] [address] Mar, [facility] [address] [id number] [address] [place] [address], [place] [address] Mar, [facility] [address] [id number] [address] [place] [address], [place] [address] Mar, [facility] [address] [id number] [address] [place] [address], [place] [address] Mar, [facility] [address] [id number] [address] [place] [address], [place] [address] Mar, [facility] [address] [id number] [address] [place] [address], [place] [address] Mar, [facility] [address] [id number] [address] [place] [address], [place] [address] Mar, [facility] [address] [id number] [address] [place] [address], [place] [address] Feb, [facility] [address] [id number] [address] [place] [address], [place] [address] Feb, [facility] [address] [id number] [address] [place] [address], [place] [address] January, [facility] [address] [id number] [address] [place] [address], [place] [address] January, [facility] [address] [id number] [address] [place] [address], [place] [address] Dec, [facility] [address] [id number] [address] [place] [address], [place] [address] Dec, [facility] [address] [id number] [facility] [place] [address] Nov, [facility] [address] [id number] [address] [place] [address], [place] [address] Nov, [facility] [address] [id number] [address] [place] [address], [place] [address] Nov, [facility] [address] [id number] [address] [place] [address], [place] [address] Nov, [facility] [address] [id number] [address] [place] [address], [place] [address] Oct, [facility] [address] [id number] [address] [place] [address], [place] [address] Oct, [facility] [address] [id number] [address] [place] [address], [place] [address] Oct, [facility] [address] [id number] [address] [place] [address], [place] [address] Oct, [facility] [address] [id number] [address] [place] [address], [place] [address] 16 Oct, 2012 [facility] [address] [id number] [address] [place] [address], [place] [address] 14 Oct, 2012 [facility] [address] [id number] [address] [place] [address], [place] [address] 08 Oct, 2012 [facility] [address] [id number] [address] [place] [address], [place] [address] 07 Oct, 2012 [facility] [address] [id number] [address] [place] [address], [place] [address] 03 Oct, 2012 [facility] [address] [id number] [address] [place] [address], [place] [address] Sep, [facility] [address] [id number] [address] [place] [address], [place] [address] Sep, [facility] [address] [id number] [address] [place] [address], [place] [address] Sep, [facility] [address] [id number] [address] [place] [address], [place] [address] Sep, [facility] [address] [id number] [address] [place] [address], [place] [address] Sep, [facility] [address] [id number] [address] [place] [address], [place] [address] Sep, [facility] [address] [id number] [address] [place] [address], [place] [address] Sep, [facility] [address] [id number] [address] [place] [address], [place] [address] Sep, [facility] [address] [id number] [address] [place] [address], [place] [address] Aug, [facility] [address] [id number] [address] [place] [address], [place] [address] Aug, [facility] [address] [id number] [address] [place] [address], [place] [address] Aug, [facility] [address] [id number] [address] [place] [address], [place] [address] Aug, [facility] [address] [id number] [address] [place] [address], [place] [address] Aug, [facility] [address] [id number] [address] [place] [address], [place] [address] Aug, [facility] [address] [id number] [address] [place] [address], [place] [address] Aug, [facility] [address] [id number] [address] [place] [address], [place] [address] Aug, [facility] [address] [id number] [address] [place] [address], [place] [address] Jul, [facility] [address] [id number] [address] [place] [address], [place] [address] Jul, [facility] [address] [id number] [address] [place] [address], [place] [address] Jul, [facility] [address] [id number] [address] [place] [address], [place] [address] Jul, [facility] [address] [id number] [address] [place] [address], [place] [address] Jul, [facility] [address] [id number] [address] [place] [address], [place] [address] Jul, [facility] [address] [id number] [address] [place] [address], [place] [address] Jun, [facility] [address] [id number] [address] [place] [address], [place] [address] Jun, [facility] [address] [id number] [address] [place] [address], [place] [address] Jun, [facility] [address] [id number] [address] [place] [address], [place] [address] Jun, [facility] [address] [id number] [address] [place] [address], [place] [address] Jun, [facility] [address] [id number] [address] [place] [address] Jun, [facility] [address] [id number] [address] [place] [address], [place] [address] Jun, [facility] [address] [id number] [address] [place] [address] Jun, [facility] [address] [id number] [address] [place] [address], [place] [address] 10 Jun, 2012 [facility] [address] [id number] [address] [place] [address] 26 May, 2012 [facility] [address] [id number] [address] [place] [address], [place] [address] 24 May, 2012 [facility] [address] [id number] [address] [place] [address], [place] [address] May, [facility] [address] [id number] [address] [place] [address], [place] [address] 30 Apr, 2012 [facility] [address] [id number] [address] [place] [address], [place] [address] Apr, [facility] [address] [id number] [address] [place] [address], [place] [address] Apr, [facility] [address] [id number] [address] [place] [address], [place] [address] Apr, [facility] [address] [id number] [address] [place] [address], [place] [address] Apr, [facility] [address] [id number] [address] [place] [address], [place] [address] Apr, [facility] [address] [id number] [address] [place] [address], [place] [address] Mar, [facility] [address] [id number] [address] [place] [address], [place] [address] Mar, [facility] [address] [id number] [address] [place] [address], [place] [address] Mar, [facility] [address] [id number] [address] [place] [address], [place] [address] Mar, [facility] [address] [id number] [address] [place] [address], [place] [address] Feb, [facility] [address] [id number] [address] [place] [address], [place] [address] Feb, [facility] [address] [id number] [address] [place] [address], [place] [address] Feb, [facility] [address] [id number] [address] [place] [address], [place] [address] Feb, [facility] [address] [id number] [address] [place] [address], [place] [address] Feb, [facility] [address] [id number] [address] [place] [address], [place] [address] January, [facility] [address] [id number] [address] [place] [address], [place] [address] January, [facility] [address] [id number] [address] [place] [address], [place] [address] January, [facility] [address] [id number] [address] [place] [address], [place] [address] January, [facility] [address] [id number] [address] [place] [address], [place] [address] January, [facility] [address] [id number] [address] [place] [address], [place] [address] January, [facility] [address] [id number] [address] [place] [address], [place] [address] Dec, [facility] [address] [id number] [address] [place] [address], [place] [address] Dec, [facility] [address] [id number] [address] [place] [address], [place] [address] Dec, [facility] [address] [id number] [address] [place] [address], [place] [address] Dec, [facility] [address] [id number] [address] [place] [address], [place] [address] Dec, [facility] [address] [id number] [address] [place] [address], [place] [address] Nov, [facility] [address] [id number] [address] [place] [address], [place] [address] 14 Nov, 2011 [facility] [address] [id number] [address] [place] [address], [place] [address] 12 Nov, 2011 [facility] [address] [id number] [address] [place] [address], [place] [address] 07 Nov, 2011 [facility] [address] [id number] [address] [place] [address], [place] [address] 29 Oct, 2011 [facility] [address] [id number] [address] [place] [address], [place] [address] 28 Oct, 2011 [facility] [address] [id number] [address] [place] [address], [place] [address] 24 Oct, 2011 [facility] [address] [id number] [address] [place] [address], [place] [address] Oct, [facility] [address] [id number] [address] [place] [address], [place] [address] Oct, [facility] [address] [id number] [address] [place] [address], [place] [address] Sep, [facility] [address] [id number] [address] [place] [address], [place] [address] Sep, [facility] [address] [id number] [address] [place] [address], [place] [address] Sep, [facility] [address] [id number] [address] [place] [address], [place] [address] Sep, [facility] [address] [id number] [address] [place] [address], [place] [address] Sep, [facility] [address] [id number] [address] [place] [address], [place] [address] Sep, [facility] [address] [id number] [address] [place] [address], [place] [address] Aug, [facility] [address] [id number] [address] [place] [address], [place] [address] Aug, [facility] [address] [id number] [address] [place] [address], [place] [address] Aug, [facility] [address] [id number] [address] [place] [address], [place] [address] Jul, [facility] [address] [id number] [address] [place] [address], [place] [address] Jul, [facility] [address] [id number] [address] [place] [address], [place] [address] 10 Jul, 2011 [facility] [address] [id number] [address] [place] [address], [place] [address] Jul, [facility] [address] [id number] [address] [place] [address], [place] [address] Jun, [facility] [address] [id number] [address] [place] [address], [place] [address] Jun, [facility] [address] [id number] [address] [place] [address], [place] [address] Jun, [facility] [address] [id number] [address] [place] [address], [place] [address] Jun, [facility] [address] [id number] [address] [place] [address], [place] [address] Jun, [facility] [address] [id number] [address] [place] [address], [place] [address] Jun, [facility] [address] [id number] [address] [place] [address], [place] [address] Mar, [facility] [address] [id number] [address] [place] [address], [place] [address] Dec, [facility] [address] [id number] [address] [place] [address], [place] [address] Dec, [facility] [address] [id number] [address] [place] [address], [place] [address] Nov, [facility] [address] [id number] [address] [place] [address], [place] [address] 16 Nov, 2010 [facility] [address] [id number] [address] [place] [address], [place] [address] Sep, [facility] [address] [id number] [address] [place] [address] [place] [address], [place] [address] Aug, [facility] [address] [id number] [address] [place] [address], [place] [address] 29 Aug, 2010 [facility] [address] [id number] [address] [place] [address], [place] [address] 29 Aug, 2010 [facility] [address] [id number] [address] [place] [address], [place] [address] 29 Aug, 2010 [facility] [address] [id number] [address] [place] [address], [place] [address] 27 Aug, 2010 [facility] [address] [id number] [address] [place] [address], [place] [address] 14 Aug, 2010 [facility] [address] [id number] [address] [place] [address], [place] [address] 08 Aug, 2010 [facility] [address] [id number] [address] [place] [address], [place] [address] 08 Aug, 2010 [facility] [address] [id number] [address] [place] [address], [place] [address] Aug, [facility] [address] [id number] [address] [place] [address], [place] [address] Aug, [facility] [address] [id number] [address] [place] [address], [place] [address] 06 Aug, 2010 [facility] [address] [id number] [address] [place] [address], [place] [address] Aug, [facility] [address] [id number] [address] [place] [address], [place] [address] 30 Jul, 2010 [facility] [address] [id number] [address] [place] [phone] 30 Jul, 2010 [facility] [address] [id number] [address] [place] [address], [place] [address] 30 Jul, 2010 [facility] [address] [id number] [address] [place] [address], [place] [address] 17 Jul, 2010 [facility] [address] [id number] [address] [place] [address], [place] [address] 08 Jul, 2010 [facility] [address] [id number] [address] [place] [address], [place] [address] Jul, [facility] [address] [id number] [address] [place] [address], [place] [address] 24 Jun, 2010 [facility] [address] [id number] [address] [place] [address], [place] [address] Jun, [facility] [address] [id number] [address] [place] [address], [place] [address] Jun, [facility] [address] [id number] [address] [place] [address], [place] [address] 13 Jun, 2010 [facility] [address] [id number] [address] [place] [address], [place] [address] 16 Apr, 2010 [facility] [address] [id number] [address] [place] [address], [place] [address] Mar, [facility] [address] [id number] [address] [place] [address], [place] [address] Feb, [facility] [address] [id number] [address] [place] [address], [place] [address] January, [facility] [address] [id number] [address] [place] [address], [place] [address] 15 Dec, 2009 [facility] [address] [id number] [address] [place] [address], [place] [address] Nov, [facility] [address] [id number] [address] [place] [address], [place] [address] Aug, [facility] [address] [id number] [address] [place] [address], [place] [address] Aug, [facility] [address] [id number] [address] [place] [address], [place] [address] Aug, [facility] [address] [id number] [address] [place] [address], [place] [address] Jul, [facility] [address] [id number] [address] [place] [address], [place] [address] Jul, [facility] [address] [id number] [address] [place] [address] Jul, [facility] [address] [id number] [address] [place] [address] Jun, [facility] [address] [id number] [address] [place] [address] Jun, [facility] [address] [id number] [address] [place] [address] Jun, [facility] [address] [id number] [address] [place] [address] Jun, [facility] [address] [id number] [address] [place] [address] Jun, [facility] [address] [id number] [address] [place] [address] Jun, [facility] [address] [id number] [address] [place] [phone] Apr, [facility] [address] [id number] [address] [place] [address] Apr, [facility] [address] [id number] [address] [place] [address] Feb, [facility] [address] [id number] [address] [place] [address] January, [facility] [address] [id number] [address] [place] [address] Dec, IMMUNIZATIONS No Known Immunizations SOCIAL HISTORY [...] History colonoscopy 2009 ([facility]), 2013 ([place] ) Surgical History heart 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 04/2014 Surgical History carotid US 05/2014 Surgical History resection of skin cancer from Right temp le Surgical History Biopsy of Lung Bilateral/Left lung lymph node 09/2016 Surgical History Bone Marrow Biopsy Surgical History port in the right chest wall 12/2016 Surgical History knee, meniscus repair 07/2018 Surgical History knee meniscus repair 09/2018 Surgical History 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
[2020-03-01 17:11] LABS: BASOPHILS % (AUTO) 1 % (0-10); EOSINOPHILS # (AUTO) 0.2 10^3/uL (0.0-0.3); EOSINOPHILS % (AUTO) 2 % (0-10); HEMATOCRIT 39 % (40-54); HEMOGLOBIN 12.9 G/DL (13.3-17.7); LYMPHOCYTES # (AUTO) 1.7 X 10^3 (1.0-4.0); LYMPHOCYTES % (AUTO) 26 % (12-44); MEAN CORPUSCULAR HEMOGLOBIN 29 PG (25-34); MEAN CORPUSCULAR HGB CONC 33 G/DL (32-36); MEAN CORPUSCULAR VOLUME 87 FL (80-99); MEAN PLATELET VOLUME 11.1 FL (7.4-10.4); MONOCYTES # (AUTO) 0.7 X 10^3 (0.0-1.0); MONOCYTES % (AUTO) 11 % (0-12); NEUTROPHILS # (AUTO) 4.1 X 10^3 (1.8-7.8); NEUTROPHILS % (AUTO) 60 % (42-75); PLATELET COUNT 255 10^3/uL (130-400); RED CELL DISTRIBUTION WIDTH 14.3 % (10.0-14.5); WHITE BLOOD COUNT 6.7 10^3/uL (4.3-11.0)
--- OUTSIDE RECORDS SUMMARY | 2020-03-01 17:11 | XMS REPORT ---
Author Michele Joy Organization [facility] Address [address] [place] [address] Care Team Providers Care Dietary Assistant Name Role Phone YONATHAN RIOS Unavailable PROBLEMS Type Condition ICD9-CM Code IVC53-LI Code Onset Dates Condition S tatus SNOMED Code Problem Cough R05 Active 13006366 Problem Benign prostatic hyperplasia with lower urinary tract symptoms, unspecified morphology N40.1 Active 60548 6007 Problem Eustachian tube dysfunction, unspecified laterality H69.80 Active 11673671 Problem Chronic pain G89.29 Active 7108597 1 Problem DM neuro manif type II E11.49 Active 96232953 Problem Diabetes E11.9 Active 45364918 Problem Leukocytosis D72.829 Active 6823991 06 Problem Falling R29.6 Active 477408339 Problem Pressure ulcer of other site, stage 3 L89.893 Active 944657234 Problem 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 Active 596486824 Problem Eye exam abnormal R93.8 Active 16 8130812 Problem Dysuria R30.0 Active 93388951 Problem Hypokalemia E87.6 Active 23626826 Problem Morbid obesity E66.01 Active 85222 6002 Problem Anxiety F41.9 Active 65743259 Problem Diabetic polyneuropathy associated with type 2 d iabetes mellitus E11.42 Active 65063280 Problem Essential hypertension I10 Active 92872284 Problem Bilateral primary osteoarthritis of knee M17.0 Active 326757864 Problem Polyneuropathy associated with underlying disease G63 Active 864009528 Problem Anemia of chronic illness D63.8 Acti ve 457227584 Problem Lymphocytosis D72.820 Active 325616 09 Problem Retinal edema H35.81 Active 176614 6 Problem Chronic lymphocytic leukemia C91.10 A ctive 78544804 Problem Bipolar disorder, in partial remission, most rec ent episode depressed F31.75 Active 42498538 Problem Pure hypercholesterolemia E78.00 Acti ve 661821141 Problem Primary osteoarthritis of right knee M17.11 Active 428373774986395 Problem Bipolar disorder F31.9 Active 137 37854 Problem Bipolar I disorder, most recent episode (or curr ent) mixed, moderate F31.62 Active 16838458 Problem Chronic diastolic (congestive) heart failure I50.3 2 Active 253112004 Problem Reactive airway disease J45.909 Active 026387232873 Problem Insomnia, unspecified type G47.00 Act sharon 919725060 Problem Other chronic pain G89.29 Active 8 0021038 Problem Other iron deficiency anemia D50.8 A ctive 56231437 Problem Mild cognitive impairment G31.84 Acti ve 069786862 Problem Skin cancer C44.90 Active 27515659 7 ALLERGIES No Information ENCOUNTERS Encounter Location Date Diagnosis [facility] [address] [facility] [id number] [address] [place] [phone] Jun, [facility] [address] [place] [id number] [place] [address] Jun, [facility] [address] [place] [id number] [address] [place] [phone] Jun, [facility] [address] [place] [id number] [address] [place] [address] Jun, [facility] [address] [place] [id number] [address] [place] [phone] May, Bipolar disorder, in partial remission, most recent episode depressed F31.75 and Mild cognitive impairment G31.84 [facility] [address] [place] [id number] [address] [place] [address] May, [facility] [address] [facility] [id number] [address] [place] [address] Apr, Chronic pain G89.29 and Bipo lar disorder F31.9 [facility] [address] [place] [id number] [address] [place] [address] Mar, Bipolar disorder F31.9 and C hronic pain G89.29 [facility] [address] [facility] [id number] [address] [place] [phone] Feb, Bipolar disorder F31.9 [facility] [address] [id number] [address] [place] [phone] Feb, Cellulitis of right upper ex tremity L03.113 and Skin abrasion T14.8XXA [facility] [address] [id number] [address] [place] [phone] Feb, Bipolar disorder, in partial remission, most recent episode depressed F31.75 and Mild cognitive impairment G31.84 [facility] [address] [id number] [address] [place] [address] Feb, Chronic pain G89.29 [place] [address] [id number] [address] [place] [phone] Feb, Bipolar disorder, in partial remission, most recent episode depressed F31.75 and Mild cognitive impairment G31.84 [place] [address] [id number] [address] [place] [address] January, Bipolar disorder, in partial remission, most recent episode depressed F31.75 and Mild cognitive impairment G31.84 [facility] [address] [id number] [address] [place] [phone] January, Chronic pain G89.29 and Bipo lar disorder F31.9 [facility] [address] [id number] [address] [place] [phone] January, Bipolar disorder, in partial remission, most recent episode depressed F31.75 and Mild cognitive impairment G31.84 [facility] [address] [id number] [address] [place] [id number] Dec, [facility] [address] [id number] [address] [place] [address] Dec, Chronic pain G89.29 and Bipo lar disorder F31.9 [facility] [address] [id number] [address] [place] [phone] Dec, Edema of both lower extremit ies R60.0 [facility] [address] [place] [id number] [address] [place] [id number] 15 Dec, 2018 Bipolar disorder F31.9 [place] [address] [place] [id number] [address] [place] [phone] 08 Dec, 2018 Bipolar disorder, in partial remission, most recent episode depressed F31.75 and Mild cognitive impairment G31.84 [place] [id number] [place] [address] Nov, [place] [address] [place] [id number] [address] [place] [address] Nov, Chronic pain G89.29 [place] [address] [address] Nov, Bipolar disorder, in partial remission, most recent episode depressed F31.75 and Mild cognitive impairment G31.84 [place] [address] [place] [address] Nov, Bipolar disorder F31.9 [place] [address] [place] [id number] [place] [phone] 04 Nov, 2018 Encounter for Medicare annua [...] unspecified morphology N40.1 and Essential hypertension I10 [address] [place] [address] Oct, Chronic pain G89.29 [place] [address] [place] [id number] [place] [address] Oct, Diabetes E11.9 [place] [address] [place] [address] Oct, Bipolar I disorder, most rec ent episode (or current) mixed, moderate F31.62 and Mild cognitive impairment G31.84 [place] [address] [facility] [id number] [address] [place] [phone] Oct, Bipolar I disorder, most rec ent episode (or current) mixed, moderate F31.62 and Mild cognitive impairment G31.84 [place] [address] [place] [id number] [place] [address] Sep, Bipolar I disorder, most rec ent episode (or current) mixed, moderate F31.62 and Mild cognitive impairment G31.84 [place] [address] [place] [id number] [place] [address] Sep, [place] [address] [place] [id number] [address] [place] [phone] Sep, Diabetes E11.9 ; Hypoxia R09 .02 ; Hyperglycemia R73.9 ; Therapeutic drug monitoring Z51.81 ; BMI 50.0-59.9, adult Z68.43 and Skin cancer C44.90 [place] [address] [place] [id number] [place] [address] Sep, Chronic pain G89.29 [place] [address] [facility] [id number] [address] [place] [address] Sep, Bipolar I disorder, most rec ent episode (or current) mixed, moderate F31.62 [place] [address] [place] [id number] [place] [address] Sep, [place] [address] [facility] [id number] [address] [place] [phone] Sep, [place] [address] [place] [id number] [address] [place] [address] Aug, Chronic pain G89.29 [place] [address] [place] [id number] [place] [address] Aug, Bipolar I disorder, most rec ent episode (or current) mixed, moderate F31.62 [facility] [address] [id number] [address] [place] [address] Aug, Bipolar I disorder, most rec ent episode (or current) mixed, moderate F31.62 and Mild cognitive impairment G31.84 [facility] [address] [id number] [address] [place] [phone] Jul, [facility] [address] [id number] [address] [place] [address] Jul, Chronic pain G89.29 [facility] [address] [id number] [address] [place] [phone] Jul, Bipolar I disorder, most rec ent episode (or current) mixed, moderate F31.62 and Mild cognitive impairment G31.84 [facility] [address] [id number] [address] [place] [address] Jul, Bipolar I disorder, most rec ent episode (or current) mixed, moderate F31.62 and MCI (mild cognitive impairment) G31.84 [facility] [address] [id number] [address] [place] [phone] Jul, [facility] [address] [id number] [address] [place] [phone] Jul, [facility] [address] [id number] [address] [place] [address] Jul, Bipolar I disorder, most rec ent episode (or current) mixed, moderate F31.62 [facility] [address] [id number] [address] [place] [phone] Jul, Chronic pain G89.29 [facility] [address] [id number] [address] [place] [address] Jun, Bipolar I disorder, most rec ent episode (or current) mixed, moderate F31.62 [facility] [address] [id number] [address] [place] [address] Jun, Pre-procedure lab exam Z01.8 12 [facility] [address] [id number] [address] [place] [phone] Jun, [facility] [address] [id number] [place] [id number] Jun, [facility] [address] [id number] [address] [place] [phone] Jun, [facility] [address] [id number] [address] [place] [phone] Jun, Forgetfulness R68.89 ; Pre-s yncope R55 ; Localized edema R60.0 ; Other iron deficiency anemia D50.8 and BMI 50.0-59.9, adult Z68.43 [facility] [address] [id number] [address] [place] [phone] Jun, Chronic pain G89.29 [facility] [address] [facility] [id number] [address] [place] [phone] Jun, Chronic pain G89.29 [facility] [address] [facility] [id number] [address] [place] [phone] Jun, Bipolar I disorder, most rec ent episode (or current) mixed, moderate F31.62 [facility] [address] [facility] [id number] [address] [place] [phone] May, Chronic pain G89.29 [facility] [address] [id number] [address] [place] [phone] Apr, [facility] [address] [id number] [address] [place] [address] Apr, Chronic pain G89.29 [facility] [address] [id number] [address] [place] [address] Apr, Primary osteoarthritis of ri ght knee M17.11 [facility] [address] [id number] [address] [place] [phone] Mar, [facility] [address] [id number] Mar, BMI 50.0-59.9, adult Z68.43 and Bipolar disorder, in partial remission, most recent episode depressed F31.75 [place] [address] [address] Mar, Diabetes E11.9 ; Pure hyperc holesterolemia E78.00 ; Essential hypertension I10 ; Nausea with vomiting, unspecified R11.2 and Headache, unspecified headache type R51 [place] [address] [address] Mar, Bipolar I disorder, most rec ent episode (or current) mixed, moderate F31.62 [place] [address] [address] Mar, Bipolar I disorder, most rec ent episode (or current) mixed, moderate F31.62 [place] [address] [address] Mar, Chronic pain G89.29 [place] [address] [address] Mar, Bipolar I disorder, most rec ent episode (or current) mixed, moderate F31.62 [place] [address] [address] Feb, Bipolar I disorder, most rec ent episode (or current) mixed, moderate F31.62 [place] [address] [address] 14 Feb, 2018 Chronic pain G89.[address] [address] 06 Feb, 2018 Decubitus ulcer of right josselin t, stage 3 L89.893 and BMI 50.0-59.9, adult Z68.43 [place] [address] [address] Feb, Bipolar I disorder, most rec ent episode (or current) mixed, moderate F31.62 [facility] [address] [facility] [id number] [address] [place] [phone] Feb, [facility] [address] [facility] [id number] [address] [place] [address] January, [facility] [address] [facility] [id number] [address] [place] [address] January, Chronic pain G89.29 [facility] [address] [facility] [id number] [address] [place] [address] January, Bipolar I disorder, most rec ent episode (or current) mixed, moderate F31.62 [place] [address] [place] [id number] [address] [place] [phone] January, Bipolar I disorder, most rec ent episode (or current) mixed, moderate F31.62 [place] [address] [place] [id number] [address] [place] [address] Dec, Bipolar I disorder, most rec ent episode (or current) mixed, moderate F31.62 and BMI 50.0-59.9, adult Z68.43 [place] [address] [place] [id number] [address] [place] [phone] Dec, Bipolar I disorder, most rec ent episode (or current) mixed, moderate F31.62 [place] [address] [place] [id number] [address] [place] [address] Dec, Chronic pain G89.29 [facility] [address] [place] [id number] [address] [place] [address] Dec, DM neuro manif type II E11.4 9 ; Right flank pain R10.9 ; dentist private practice 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 Z79.891 ; Encounter for medication monitoring Z51.81 and BMI 50.0-59.9, adult Z68.43 [place] [address] [place] [id number] [address] [place] [id number] Dec, Bipolar I disorder, most rec ent episode (or current) mixed, moderate F31.62 [facility] [address] [id number] [address] [place] [address] Nov, Bipolar I disorder, most rec ent episode (or current) mixed, moderate F31.62 [facility] [address] [facility] [id number] [address] [place] [phone] Nov, Chronic pain G89.29 [facility] [address] [facility] [id number] [address] [place] [address] Nov, Bipolar I disorder, most rec ent episode (or current) mixed, moderate F31.62 [facility] [address] [facility] [id number] [address] [place] [address] Nov, Hypokalemia E87.6 [place] [address] [facility] [id number] [address] [place] [address] Nov, Bipolar I disorder, most rec ent episode (or current) mixed, moderate F31.62 [facility] [address] [facility] [id number] [address] [place] [address] Oct, Chronic pain G89.29 [facility] [address] [facility] [id number] [address] [place] [address] Oct, BMI 50.0-59.9, adult Z68.43 and Bipolar I disorder, most recent episode (or current) mixed, moderate F31.62 [facility] [address] [facility] [id number] [address] [place] [address] Oct, Bipolar I disorder, most rec ent episode (or current) mixed, moderate F31.62 [facility] [address] [facility] [id number] [address] [place] [phone] Oct, [facility] [address] [facility] [id number] [address] [place] [phone] Oct, Hypokalemia E87.6 [facility] [address] [facility] [id number] [address] [place] [id number] Oct, DM neuro manif type II E11.4 9 [facility] [address] [facility] [id number] [address] [place] [phone] Oct, Bipolar I disorder, most rec ent episode (or current) mixed, moderate F31.62 [facility] [address] [facility] [id number] [address] [place] [id number] Oct, Bipolar I disorder, most rec ent episode (or current) mixed, moderate F31.62 [facility] [address] [facility] [id number] [address] [place] [address] 14 Oct, 2017 Hyperkalemia E87.5 ; Falling R29.6 ; BMI 50.0-59.9, adult Z68.43 and Acute left ankle pain M25.572 [place] [address] [place] [id number] [address] [place] [address] Oct, DM neuro manif type II E11.4 9 [facility] [address] [facility] [id number] [address] [place] [phone] Oct, [place] [address] [place] [id number] [place] [phone] Sep, Chronic pain G89.29 [facility] [address] [facility] [id number] [address] [place] [phone] Sep, [facility] [address] [place] [id number] [address] [place] [phone] Sep, Bilateral primary osteoarthr itis of knee M17.0 [facility] [address] [facility] [id number] [address] [place] [phone] Sep, Generalized edema R60.1 [facility] [address] [facility] [id number] [address] [place] [address] Sep, Bipolar I disorder, most rec ent episode (or current) mixed, moderate F31.62 [facility] [address] [place] [id number] [address] [place] [address] Sep, Hypoxia R09.02 ; Other hyper volemia E87.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 ; Anemia of chronic illness D63.8 and BMI 50.0- 59.9, adult Z68.43 [place] [address] [place] [id number] [address] [place] [address] Sep, [place] [address] [address] Sep, Bipolar I disorder, most rec ent episode (or current) mixed, moderate F31.62 [place] [address] [address] Aug, Chronic pain G89.29 [place] [address] [address] Aug, Generalized edema R60.1 [place] [address] [place] [id number] [address] [place] [address] Aug, [place] [address] [address] Aug, [place] [address] [place] [id number] [place] [address] Aug, Bipolar I disorder, most rec ent episode (or current) mixed, moderate F31.62 [place] [address] [place] [id number] [address] [place] [address] Aug, Bipolar I disorder, most rec ent episode (or current) mixed, moderate F31.62 [place] [address] [place] [id number] [address] [place] [address] Aug, Chronic pain G89.29 [place] [address] [place] [id number] [address] [place] [phone] Jul, Bipolar I disorder, most rec ent episode (or current) mixed, moderate F31.62 [place] [address] [facility] [id number] [address] [place] [id number] Jul, Bipolar I disorder, most rec ent episode (or current) mixed, moderate F31.62 and BMI 60.0-69.9, adult Z68.44 [facility] [address] [facility] [id number] [address] [place] [id number] Jul, Bipolar I disorder, most rec ent episode (or current) mixed, moderate F31.62 [place] [address] [facility] [id number] [address] [place] [id number] Jul, Chronic pain G89.29 [place] [address] [address] [facility] [place] [id number] [address] [place] [phone] Jul, Bipolar I disorder, most rec ent episode (or current) mixed, moderate F31.62 [place] [address] [address] [facility] [place] [id number] [address] [place] [id number] Jun, Polyneuropathy associated wi th underlying disease G63 and Diabetes E11.9 [facility] [address] [facility] [place] [id number] [address] [place] [id number] Jun, Bipolar I disorder, most rec ent episode (or current) mixed, moderate F31.62 [id number] [facility] [place] [id number] [address] [place] [phone] Jun, Chronic pain G89.29 [place] [address] [address] [facility] [place] [id number] [address] [place] [phone] May, Bipolar I disorder, most rec ent episode (or current) mixed, moderate F31.62 [place] [address] [address] [facility] [place] [id number] [address] [place] [phone] May, Bipolar I disorder, most rec ent episode (or current) mixed, moderate F31.62 [facility] [address] [facility] [place] [id number] [address] [place] [phone] May, Diabetic polyneuropathy asso ciated with type 2 diabetes mellitus E11.42 [facility] [address] [facility] [place] [id number] [address] [place] [phone] 18 May, 2017 Bipolar I disorder, most rec ent episode (or current) mixed, moderate F31.62 [facility] [address] [facility] [place] [id number] [address] [place] [phone] 13 May, 2017 Bipolar I disorder, most rec ent episode (or current) mixed, moderate F31.62 [facility] [address] [place] [id number] [address] [place] [id number] 12 May, 2017 Chronic pain G89.29 [facility] [address] [facility] [place] [id number] [address] [place] [id number] 30 Apr, 2017 Bipolar I disorder, most rec ent episode (or current) mixed, moderate F31.62 [facility] [facility] [address] [id number] [address] [place] [phone] Apr, [facility] [address] [id number] [address] [place] [phone] Apr, Chronic pain G89.29 and DM n euro manif type II E11.49 [facility] [address] [facility] [id number] [address] [place] [id number] Apr, [facility] [id number] [place] [phone] Apr, Bipolar I disorder, most rec ent episode (or current) mixed, moderate F31.62 [facility] [address] [id number] [address] [place] [phone] Apr, Chronic pain G89.29 [facility] [address] [facility] [id number] [address] [place] [id number] Apr, Iliotibial band syndrome, le ft M76.32 [facility] [address] [facility] [id number] [address] [place] [phone] Apr, Bipolar I disorder, most rec ent episode (or current) mixed, moderate F31.62 [facility] [address] [id number] [address] [place] [id number] Mar, Bipolar I disorder, most rec ent episode (or current) mixed, moderate F31.62 [facility] [address] [id number] [address] [place] [id number] Mar, Bipolar I disorder, most rec ent episode (or current) mixed, moderate F31.62 [facility] [address] [facility] [id number] [address] [place] [id number] Mar, [facility] [address] [id number] [address] [place] [id number] Mar, Bipolar I disorder, most rec ent episode (or current) mixed, moderate F31.62 [place] [address] [address] [facility] [id number] [address] [place] [id number] Mar, Chronic pain G89.29 [place] [address] [address] [facility] [id number] [address] [place] [phone] Mar, Bipolar I disorder, most rec ent episode (or current) mixed, moderate F31.62 [place] [address] [id number] [address] [place] [phone] Mar, Bipolar I disorder, most rec ent episode (or current) mixed, moderate F31.62 [place] [address] [address] [facility] [id number] [address] [place] [phone] Mar, Acute pain of left knee M25. 562 ; Left hip pain M25.552 ; Generalized edema R60.1 and Tongue swelling R22.0 [facility] [address] [facility] [id number] [address] [place] [phone] Mar, [facility] [address] [facility] [id number] [address] [place] [phone] Feb, Chronic pain G89.29 [facility] [address] [facility] [id number] [address] [place] [phone] Feb, Diabetes E11.9 [place] [address] [address] [facility] [id number] [address] [place] [phone] January, Chronic pain G89.29 [facility] [address] [id number] [address] [place] [phone] January, [facility] [address] [facility] [id number] [address] [place] [id number] January, Bipolar I disorder, most rec ent episode (or current) mixed, moderate F31.62 [facility] [address] [facility] [id number] [address] [place] [id number] Dec, Bipolar I disorder, most rec ent episode (or current) mixed, moderate F31.62 [facility] [address] [id number] [address] [place] [phone] Dec, Chronic pain G89.29 [facility] [address] [facility] [id number] [address] [place] [phone] Dec, Bipolar I disorder, most rec ent episode (or current) mixed, moderate F31.62 [facility] [address] [facility] [id number] [address] [place] [id number] Dec, Diabetes E11.9 ; Essential h ypertension I10 ; Chronic pain G89.29 and Morbid obesity E66.01 [facility] [address] [facility] [id number] [address] [place] [phone] Dec, [facility] [address] [facility] [id number] [address] [place] [id number] Dec, Bipolar I disorder, most rec ent episode (or current) mixed, moderate F31.62 [facility] [address] [facility] [id number] [address] [place] [id number] Dec, Bipolar I disorder, most rec ent episode (or current) mixed, moderate F31.62 [facility] [address] [facility] [id number] [address] [place] [phone] Nov, Chronic pain G89.29 [facility] [address] [facility] [id number] [address] [place] [id number] Nov, Bipolar I disorder, most rec ent episode (or current) mixed, moderate F31.62 [facility] [address] [id number] [address] [place] [phone] Nov, [facility] [address] [facility] [id number] [address] [place] [phone] Nov, Bipolar I disorder, most rec ent episode (or current) mixed, moderate F31.62 [facility] [address] [facility] [id number] [address] [place] [id number] Nov, Bipolar I disorder, most rec ent episode (or current) mixed, moderate F31.62 [facility] [address] [id number] [address] [place] [phone] Nov, [facility] [address] [facility] [id number] [address] [place] [phone] Nov, [facility] [address] [facility] [id number] [address] [place] [phone] Nov, [facility] [address] [facility] [id number] [address] [place] [id number] Oct, Chronic pain G89.29 [facility] [address] [facility] [id number] [address] [place] [phone] Oct, Bipolar I disorder, most rec ent episode (or current) mixed, moderate F31.62 [facility] [address] [facility] [id number] [address] [place] [phone] Oct, [facility] [address] [facility] [id number] [address] [place] [phone] Oct, Chronic pain G89.29 ; Diabet es E11.9 ; Anxiety F41.9 and 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 [facility] [address] [facility] [id number] [address] [place] [phone] 10 Oct, 2016 [facility] [address] [facility] [id number] [address] [place] [phone] 06 Oct, 2016 Diabetes E11.9 [facility] [address] [id number] [address] [place] [phone] Oct, Bipolar I disorder, most rec ent episode (or current) mixed, moderate F31.62 [facility] [address] [id number] [address] [place] [id number] Sep, Chronic pain G89.29 [facility] [address] [facility] [id number] [address] [place] [phone] Sep, Chronic pain G89.29 [facility] [address] [id number] [address] [place] [id number] Aug, Chronic pain G89.29 [facility] [address] [facility] [id number] [address] [place] [phone] Jul, [facility] [address] [facility] [id number] [address] [place] [phone] Jul, Diabetes E11.9 [facility] [address] [id number] [address] [place] [phone] Jul, Chronic pain G89.29 [facility] [address] [facility] [id number] [address] [place] [phone] Jul, Bipolar I disorder, most rec ent episode (or current) mixed, moderate F31.62 [facility] [address] [facility] [id number] [address] [place] [phone] Jun, Bipolar I disorder, most rec ent episode (or current) mixed, moderate F31.62 [facility] [address] [id number] [address] [place] [phone] Jun, [facility] [address] [facility] [id number] [address] [place] [phone] Jun, Bipolar I disorder, most rec ent episode (or current) mixed, moderate F31.62 [facility] [address] [facility] [id number] [address] [place] [id number] May, Insomnia, unspecified type G 47.00 [facility] [address] [id number] [address] [place] [id number] 22 May, 2016 Bipolar I disorder, most rec ent episode (or current) mixed, moderate F31.62 [facility] [address] [id number] [address] [place] [phone] 14 May, 2016 [facility] [address] [id number] [address] [place] [phone] May, Bipolar I disorder, most rec ent episode (or current) mixed, moderate F31.62 [facility] [address] [id number] [address] [place] [phone] May, Diabetes E11.9 and Essential hypertension I10 [facility] [address] [facility] [id number] [address] [place] [id number] Apr, Chronic pain G89.29 [facility] [address] [facility] [id number] [address] [place] [id number] Apr, Bipolar I disorder, most rec ent episode (or current) mixed, moderate F31.62 [facility] [address] [facility] [id number] [address] [place] [phone] Apr, [facility] [address] [facility] [id number] [address] [place] [phone] Apr, [facility] [address] [facility] [id number] [address] [place] [id number] Mar, Chronic pain G89.29 ; Headac he, unspecified headache type R51 ; Neuropathy G62.9 ; Pain of right hip joint M25.551 and Essential hypertension I10 [facility] [address] [id number] [address] [place] [phone] Mar, Chronic pain G89.29 [facility] [address] [facility] [id number] [address] [place] [phone] Mar, Bipolar I disorder, most rec ent episode (or current) mixed, moderate F31.62 [facility] [address] [facility] [id number] [address] [place] [phone] Feb, Bipolar I disorder, most rec ent episode (or current) mixed, moderate F31.62 and Insomnia, unspecified type G47.00 [facility] [address] [facility] [id number] [address] [place] [phone] Feb, Chronic pain G89.29 [facility] [address] [facility] [id number] [address] [place] [phone] Feb, Bipolar I disorder, most rec ent episode (or current) mixed, moderate F31.62 [facility] [address] [facility] [id number] [address] [place] [phone] January, Bipolar I disorder, most rec ent episode (or current) mixed, moderate F31.62 [facility] [address] [facility] [id number] [address] [place] [phone] January, Chronic pain G89.29 [facility] [address] [facility] [id number] [address] [place] [phone] January, Chronic pain G89.29 and Esse ntial hypertension I10 [facility] [address] [facility] [id number] [address] [place] [phone] January, Bipolar I disorder, most rec ent episode (or current) mixed, moderate F31.62 [facility] [address] [facility] [id number] [address] [place] [phone] Dec, [facility] [address] [facility] [id number] [address] [place] [phone] Dec, [facility] [address] [facility] [id number] [address] [place] [phone] Dec, [facility] [address] [facility] [id number] [address] [place] [id number] Dec, [facility] [address] [facility] [id number] [address] [place] [phone] Nov, Reactive airway disease J45. 909 [facility] [address] [id number] Nov, [facility] [address] [id number] Nov, [facility] [address] [id number] Nov, [address] [address] [address] Nov, [facility] [address] [address] Nov, Onychomycosis B35.1 ; Hammer toe M20.40 ; [place] or callus L84 and DM neuro manif type II E11.49 [place] [address] [address] Nov, Chronic pain G89.29 ; Leukoc ytosis D72.829 and Diabetes E11.9 [place] [address] [id number] Nov, [place] [address] [address] Oct, Bronchitis J40 [place] [address] [address] Oct, [place] [address] [id number] Oct, [facility] [address] [address] Oct, Mastoiditis, unspecified lat erality H70.90 and Type 2 diabetes mellitus with complication E11.8 [place] [address] [place] [id number] [place] [phone] Sep, [facility] [address] [id number] [address] [place] [id number] Sep, Dysuria R30.0 ; Cough R05 ; Benign prostatic hyperplasia with lower urinary tract symptoms, unspecified morphology N40.1 ; Hypokalemia E87.6 and Eustachian tube dysfunction, unspecified laterality H69.80 [facility] [address] [facility] [id number] [address] [place] [phone] Sep, Moderate mixed bipolar I dis order F31.62 [facility] [address] [facility] [id number] [address] [place] [phone] Sep, Hypokalemia E87.6 [facility] [address] [facility] [id number] [address] [place] [phone] Sep, [facility] [address] [id number] [address] [place] [id number] Sep, Upper respiratory tract infe ction, unspecified type J06.9 [facility] [address] [id number] [address] [place] [id number] Aug, [facility] [address] [id number] [address] [place] [phone] Aug, Dysuria R30.0 [facility] [address] [id number] [place] [phone] Aug, [facility] [address] [id number] [place] [id number] Jul, [facility] [address] [id number] [place] [id number] Jul, [facility] [address] [id number] [place] [phone] Jul, [facility] [address] [id number] [address] [place] [phone] Jul, [facility] [address] [id number] [address] [place] [phone] Jun, [facility] [address] [id number] [place] [phone] Jun, [facility] [address] [facility] [id number] [address] [place] [id number] Jun, [facility] [address] [facility] [id number] [address] [place] [id number] May, [facility] [address] [facility] [id number] [address] [place] [phone] May, Bipolar I disorder, most rec ent episode (or current) mixed, moderate 296.62 [facility] [address] [id number] [address] [place] [id number] May, [facility] [address] [facility] [id number] [address] [place] [id number] May, Bipolar I disorder, most rec ent episode (or current) mixed, moderate 296.62 and Major depressive disorder, recurrent episode, severe, specified as with psychotic behavior 296.34 [facility] [address] [id number] [address] [place] [phone] May, Bipolar I disorder, most rec ent episode (or current) mixed, moderate 296.62 [facility] [address] [id number] [address] [place] [phone] May, [facility] [address] [id number] [address] [place] [phone] Apr, [facility] [address] [id number] [address] [place] [id number] Apr, [facility] [address] [id number] [address] [place] [id number] Apr, Unspecified disorder of kidn ey and ureter 593.9 and Diabetes mellitus type 2, uncontrolled 250.02 [facility] [address] [facility] [id number] [address] [place] [address] Apr, [facility] [address] [id number] [address] [place] [phone] Apr, [facility] [address] [id number] [address] [place] [phone] Apr, [facility] [address] [address] [id number] [address] [place] [address] Apr, [facility] [address] [address] Apr, Diabetes mellitus type II, u ncontrolled 250.02 [facility] [address] [id number] Apr, [facility] [address] [phone] Mar, [facility] [address] [address] Mar, [facility] [address] [address] Mar, [facility] [address] [address] Mar, Major depressive disorder, r ecurrent episode, severe, specified as with psychotic behavior 296.34 and Bipolar I disorder, most recent episode (or current) mixed, moderate 296.62 [facility] [address] [address] Mar, Diabetes 250.00 ; Anuria 788 .5 ; Nausea and vomiting 787.01 and Diarrhea 787.91 [facility] [address] [place] [id number] [address] [place] [address] Mar, Diabetes 250.00 [facility] [address] [place] [address] [id number] [address] [place] [phone] Mar, [facility] [address] [address] Mar, Diabetes 250.00 [facility] [address] [place] [id number] [address] [place] [id number] Mar, [facility] [address] [place] [id number] [address] [place] [phone] Mar, [facility] [address] [place] [id number] [address] [place] [phone] Mar, [facility] [address] [id number] Mar, [facility] [address] [id number] Mar, Bipolar I disorder, most rec ent episode (or current) mixed, moderate 296.62 and Major depressive disorder, recurrent episode, severe, specified as with psychotic behavior 296.[address] [address] Mar, Magnesium deficiency 275.2 ; Hypokalemia 276.8 ; Nausea & vomiting 787.01 and Diabetes mellitus type 2, uncontrolled [address] [address] Feb, [address] [address] Feb, Bipolar I disorder, most rec ent episode (or current) mixed, moderate 296.[address] [address] Feb, Nausea and vomiting 787.01 ; Left elbow pain 719.42 ; Anuria 788.5 and Diabetes 250.[address] [address] Feb, [address] [address] Feb, Hypopotassemia 276.8 and Hyp okalemia 276.[address] [address] Feb, Hypopotassemia 276.8 and Hyp okalemia 276.[address] [address] Feb, Seborrheic keratoses 702.19 [facility] [address] [id number] [address] [place] [id number] Feb, Hypopotassemia 276.8 and Low magnesium levels 275.2 [facility] [address] [id number] [address] [place] [id number] January, [facility] [address] [id number] [address] [place] [id number] January, [facility] [address] [id number] [address] [place] [id number] January, [facility] [address] [id number] [address] [place] [id number] January, Scalp lesion 709.9 [facility] [address] [id number] [address] [place] [id number] January, [facility] [address] [facility] [id number] [address] [place] [id number] Dec, Tear of medial cartilage or meniscus of knee, current 836.0 and 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 [facility] [address] [id number] [address] [place] [id number] Dec, [facility] [address] [id number] [address] [place] [id number] Dec, [facility] [address] [id number] [address] [place] [id number] Dec, Squamous cell carcinoma, 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 [facility] [address] [id number] [address] [place] [id number] Dec, [facility] [address] [id number] [address] [place] [id number] Dec, [facility] [address] [id number] [address] [place] [id number] Nov, [facility] [address] [id number] [address] [place] [id number] Nov, [facility] [address] [id number] [address] [place] [address], [place] [address] Nov, [facility] [address] [id number] [address] [place] [address], [place] [address] Nov, [facility] [address] [id number] [address] [place] [address], [place] [address] Nov, [facility] [address] [id number] [address] [place] [id number] Nov, [facility] [address] [id number] [address] [place] [address], [place] [id number] Nov, [facility] [address] [id number] [address] [place] [address], [place] [id number] Nov, [facility] [address] [address] [id number] [address] [place] [address], [place] [address] Nov, [facility] [address] [id number] [address] [place] [address] Nov, [facility] [address] [id number] [address] [place] [address], [place] [address] Nov, [facility] [address] [id number] [address] [place] [address], [place] [address] Nov, [facility] [address] [id number] [address] [place] [address], [place] [address] Oct, 2014 [facility] [address] [id number] [address] [place] [address] Oct, 2014 [facility] [address] [id number] [address] [place] [address], [place] [address] Oct, 2014 [facility] [address] [id number] [address] [place] [address], [place] [address] Oct, 2014 [facility] [address] [id number] [address] [place] [address], [place] [address] Oct, 2014 [facility] [address] [id number] [address] [place] [address], [place] [address] Oct, [facility] [address] [id number] [address] [place] [address], [place] [address] Oct, [facility] [address] [id number] [address] [place] [address], [place] [address] Oct, [facility] [address] [id number] [address] [place] [address], [place] [address] Oct, [facility] [address] [id number] [address] [place] [address], [place] [address] Sep, [facility] [address] [id number] [address] [place] [address], [place] [address] Sep, [facility] [address] [id number] [address] [place] [address], [place] [address] Sep, [facility] [address] [id number] [address] [place] [address], [place] [address] Sep, [facility] [address] [id number] [address] [place] [address], [place] [address] Sep, [facility] [address] [id number] [address] [place] [address], [place] [address] Sep, [facility] [address] [id number] [address] [place] [address], [place] [address] Sep, [facility] [address] [id number] [address] [place] [address], [place] [address] Sep, [facility] [address] [id number] [address] [place] [address], [place] [address] Sep, [facility] [address] [id number] [address] [place] [address], [place] [address] Sep, [facility] [address] [id number] [address] [place] [address], [place] [address] Sep, [facility] [address] [id number] [address] [place] [address], [place] [address] Sep, [facility] [address] [id number] [address] [place] [address], [place] [address] Sep, [facility] [address] [id number] [address] [place] [address], [place] [address] Sep, [facility] [address] [id number] [address] [place] [address], [place] [address] Sep, [facility] [address] [id number] [address] [place] [address], [place] [address] Sep, [facility] [address] [id number] [address] [place] [address], [place] [address] Aug, [facility] [address] [id number] [address] [place] [address], [place] [address] Aug, [facility] [address] [id number] [address] [place] [address], [place] [address] Aug, [facility] [address] [id number] [address] [place] [address], [place] [address] Aug, [facility] [address] [id number] [address] [place] [address], [place] [address] Aug, [facility] [address] [id number] [address] [place] [address], [place] [address] Aug, [facility] [address] [id number] [address] [place] [address], [place] [address] Aug, [facility] [address] [id number] [address] [place] [address], [place] [address] Aug, [facility] [address] [id number] [address] [place] [address], [place] [address] Aug, [facility] [address] [id number] [address] [place] [address], [place] [address] Aug, [facility] [address] [id number] [address] [place] [address], [place] [address] Aug, [facility] [place] [id number] Aug, 2014 [facility] [address] [id number] [facility] [place] [address] Aug, [facility] [address] [id number] [facility] [place] [address] Aug, [facility] [address] [id number] [address] [place] [address], [place] [address] Aug, [facility] [address] [id number] [address] [place] [address], [place] [address] Aug, [facility] [address] [id number] [address] [place] [address], [place] [address] Aug, [facility] [address] [id number] [address] [place] [address], [place] [address] Aug, [facility] [address] [id number] [address] [place] [address], [place] [address] Aug, [facility] [address] [id number] [address] [place] [address], [place] [address] Aug, [facility] [address] [id number] [address] [place] [address], [place] [address] Aug, [facility] [address] [id number] [address] [place] [address], [place] [address] Aug, [facility] [address] [id number] [address] [place] [address], [place] [address] Aug, [facility] [address] [id number] [address] [place] [address], [place] [address] Aug, [facility] [address] [id number] [address] [place] [address], [place] [address] Aug, [facility] [address] [id number] [address] [place] [address], [place] [address] Aug, [facility] [address] [id number] [address] [place] [address], [place] [address] Aug, [facility] [address] [id number] [address] [place] [address], [place] [address] Aug, [facility] [address] [id number] [address] [place] [address], [place] [address] Aug, [facility] [address] [id number] [address] [place] [address], [place] [address] Aug, [facility] [address] [id number] [address] [place] [address], [place] [address] Jul, [facility] [address] [id number] [address] [place] [address], [place] [address] Jul, [facility] [address] [id number] [address] [place] [address], [place] [address] Jul, [facility] [address] [id number] [address] [place] [address], [place] [address] Jul, [facility] [address] [id number] [address] [place] [address], [place] [address] Jul, [facility] [address] [id number] [address] [place] [address], [place] [address] Jul, [facility] [address] [id number] [address] [place] [address], [place] [address] Jul, [facility] [address] [id number] [address] [place] [address], [place] [address] Jul, [facility] [address] [id number] [address] [place] [address], [place] [address] Jul, [facility] [address] [id number] [address] [place] [address], [place] [address] Jul, [facility] [address] [id number] [address] [place] [address], [place] [address] Jun, [facility] [address] [id number] [address] [place] [address], [place] [address] Jun, [facility] [address] [id number] [address] [address] 16 Jun, 2014 [facility] [address] [id number] [address] [place] [address], [place] [address] 16 Jun, 2014 [facility] [address] [id number] [address] [place] [address], [place] [address] 15 Jun, 2014 [facility] [address] [id number] [address] [place] [address], [place] [address] Jun, [facility] [address] [id number] [address] [place] [address] Jun, [facility] [address] [id number] [address] [place] [address], [place] [address] Jun, [facility] [address] [id number] [address] [place] [address], [place] [address] Jun, [facility] [address] [id number] [address] [place] [address], [place] [address] Jun, [facility] [address] [id number] [address] [place] [address], [place] [address] 29 May, 2013 [facility] [address] [id number] [address] [place] [address], [place] [address] 29 Sep, 2013 [facility] [address] [id number] [address] [place] [address], [place] [address] 26 May, 2013 [facility] [address] [id number] [address] [place] [address], [place] [address] 26 May, 2013 [facility] [address] [id number] [address] [place] [address] 17 Sep, 2013 [facility] [address] [id number] [address] [place] [address], [place] [address] 17 Sep, 2013 [facility] [address] [id number] [address] [place] [address], [place] [address] 15 May, 2013 [facility] [address] [id number] [address] [place] [address] 15 May, 2013 [facility] [address] [id number] [facility] [place] [address] 15 May, 2013 [facility] [address] [id number] [address] [place] [address], [place] [address] 15 May, 2013 [facility] [address] [id number] [facility] [place] [address] 10 May, 2013 [facility] [address] [id number] [address] [place] [address], [place] [address] 10 May, 2013 [facility] [address] [id number] [address] [place] [address], [place] [address] 09 May, 2013 [facility] [address] [id number] [address] [place] [address], [place] [address] 09 May, 2013 [facility] [address] [id number] [address] [place] [address], [place] [address] 04 May, 2013 [facility] [address] [id number] [address] [place] [address], [place] [address] May, 2013 [facility] [address] [id number] [address] [place] [address], [place] [address] Apr, [facility] [address] [id number] [address] [place] [address], [place] [address] Apr, [facility] [address] [id number] [address] [place] [address], [place] [address] Apr, [facility] [address] [id number] [address] [place] [address], [place] [address] Apr, [facility] [address] [id number] [address] [place] [address], [place] [address] Apr, [facility] [address] [id number] [address] [place] [address], [place] [address] Apr, [facility] [address] [id number] [address] [place] [address], [place] [address] Apr, [facility] [address] [id number] [address] [place] [address], [place] [address] Apr, [facility] [address] [id number] [facility] [place] [address] Apr, [facility] [address] [id number] [address] [place] [address], [place] [address] Apr, [facility] [address] [id number] [address] [place] [address], [place] [address] Apr, [facility] [address] [id number] [address] [place] [address], [place] [address] Apr, [facility] [address] [id number] [address] [place] [address], [place] [address] Apr, [facility] [address] [id number] [address] [place] [address], [place] [address] Apr, [facility] [address] [id number] [address] [place] [address], [place] [address] Apr, [facility] [address] [id number] [address] [place] [address], [place] [address] Mar, [facility] [address] [id number] [address] [place] [address], [place] [address] Mar, [facility] [address] [id number] [address] [place] [address], [place] [address] Mar, [facility] [address] [id number] [address] [place] [address], [place] [address] Mar, [facility] [address] [id number] [address] [place] [address], [place] [address] Mar, [facility] [address] [id number] [address] [place] [address], [place] [address] Mar, [facility] [address] [id number] [address] [place] [address], [place] [address] Mar, [facility] [address] [id number] [address] [place] [address], [place] [address] Mar, [facility] [address] [id number] [address] [place] [address], [place] [address] Mar, 2013 [facility] [address] [id number] [address] [place] [address], [place] [address] Mar, 2013 [facility] [address] [id number] [address] [place] [address], [place] [address] Mar, 2013 [facility] [address] [id number] [address] [place] [address], [place] [address] Mar, 2013 [facility] [address] [id number] [address] [place] [address], [place] [address] Mar, 2013 [facility] [address] [id number] [address] [place] [address], [place] [address] Mar, 2013 [facility] [address] [id number] [address] [place] [address], [place] [address] Mar, 2013 [facility] [address] [id number] [address] [place] [address], [place] [address] Mar, 2013 [facility] [address] [id number] [address] [place] [address], [place] [address] Mar, [facility] [address] [id number] [address] [place] [address], [place] [address] Mar, [facility] [address] [id number] [address] [place] [address], [place] [address] Feb, [facility] [address] [id number] [address] [place] [address], [place] [address] Feb, [facility] [address] [id number] [address] [place] [address], [place] [address] Feb, [facility] [address] [id number] [address] [place] [address], [place] [address] Feb, [facility] [address] [id number] [address] [place] [address], [place] [address] Feb, [facility] [address] [id number] [address] [place] [address], [place] [address] Feb, [facility] [address] [id number] [facility] [place] [address] Feb, [facility] [address] [id number] [facility] [place] [address] Feb, [facility] [address] [id number] [facility] [place] [address] Feb, [facility] [address] [id number] [facility] [place] [address] Feb, [facility] [address] [id number] [facility] [place] [address] Feb, [facility] [address] [id number] [facility] [place] [address] Feb, [facility] [address] [id number] [facility] [place] [address] Feb, [facility] [address] [id number] [address] [place] [address], [place] [address] Feb, [facility] [address] [id number] [address] [place] [address], [place] [address] January, [facility] [address] [id number] [address] [place] [address], [place] [address] January, [facility] [address] [id number] [facility] [place] [address] January, [facility] [address] [id number] [facility] [place] [address] January, [facility] [address] [id number] [address] [place] [address], [place] [address] January, [facility] [address] [id number] [facility] [place] [address] January, [facility] [address] [id number] [facility] [place] [address] January, [facility] [address] [id number] [facility] [place] [address] January, [facility] [address] [id number] [facility] [place] [address] January, [facility] [address] [id number] [facility] [place] [address] January, [facility] [address] [id number] [address] [place] [address], [place] [address] January, [facility] [address] [id number] [address] [place] [address], [place] [address] January, [facility] [address] [id number] [address] [place] [address], [place] [address] January, [facility] [address] [id number] [address] [place] [address], [place] [address] January, [facility] [address] [id number] [address] [place] [address], [place] [address] Dec, [facility] [address] [id number] [address] [place] [address], [place] [address] Dec, [facility] [address] [id number] [address] [place] [address], [place] [address] Dec, [facility] [address] [id number] [address] [place] [address], [place] [address] Dec, [facility] [address] [id number] [address] [place] [address], [place] [address] Dec, [facility] [address] [id number] [address] [place] [address], [place] [address] Dec, [facility] [address] [id number] [address] [place] [address], [place] [address] Dec, [facility] [address] [id number] [address] [place] [address], [place] [address] Dec, [facility] [address] [id number] [address] [place] [address], [place] [address] Dec, [facility] [address] [id number] [facility] [place] [address] Dec, [facility] [address] [id number] [facility] [place] [address] Nov, [facility] [address] [id number] [facility] [place] [address] Nov, [facility] [address] [id number] [facility] [place] [address] Nov, [facility] [address] [id number] [address] [place] [address], [place] [address] Nov, [facility] [address] [id number] [address] [place] [address], [place] [address] Nov, [facility] [address] [id number] [address] [place] [address], [place] [address] Nov, [facility] [address] [id number] [address] [place] [address], [place] [address] Nov, [facility] [address] [id number] [address] [place] [address], [place] [address] Nov, [facility] [address] [id number] [address] [place] [address], [place] [address] Nov, [facility] [address] [id number] [address] [place] [address], [place] [address] Nov, [facility] [address] [id number] [address] [place] [address], [place] [address] Oct, [facility] [address] [id number] [address] [place] [address], [place] [address] Oct, [facility] [address] [id number] [address] [place] [address], [place] [address] Oct, [facility] [address] [id number] [address] [place] [address], [place] [address] Oct, [facility] [address] [id number] [address] [place] [address], [place] [address] Oct, [facility] [address] [id number] [address] [place] [address], [place] [address] Oct, [facility] [address] [id number] [address] [place] [address], [place] [address] Oct, [facility] [address] [id number] [address] [place] [address], [place] [address] Oct, [facility] [address] [id number] [address] [place] [address], [place] [address] Oct, [facility] [address] [id number] [address] [place] [address], [place] [address] Oct, [facility] [address] [id number] [address] [place] [address], [place] [address] Oct, [facility] [address] [id number] [address] [place] [address], [place] [address] Oct, [facility] [address] [id number] [address] [place] [address], [place] [address] Oct, [facility] [address] [id number] [address] [place] [address], [place] [address] Oct, [facility] [address] [id number] [address] [place] [address], [place] [address] Sep, [facility] [address] [id number] [address] [place] [address], [place] [address] Sep, [facility] [address] [id number] [address] [place] [address], [place] [address] Sep, [facility] [address] [id number] [address] [place] [address], [place] [address] Sep, [facility] [address] [id number] [address] [place] [address], [place] [address] Sep, [facility] [address] [id number] [address] [place] [address], [place] [address] Sep, [facility] [address] [id number] [address] [place] [address], [place] [address] 14 Sep, 2013 [facility] [address] [id number] [address] [place] [address], [place] [address] 14 Sep, 2013 [facility] [address] [id number] [address] [place] [address], [place] [address] 08 Sep, 2013 [facility] [address] [id number] [address] [place] [address], [place] [address] Sep, [facility] [address] [id number] [address] [place] [address], [place] [address] Aug, [facility] [address] [id number] [address] [place] [address], [place] [address] Aug, [facility] [address] [id number] [address] [place] [address], [place] [address] Jul, [facility] [address] [id number] [address] [place] [address], [place] [address] Jul, [facility] [address] [id number] [address] [place] [address], [place] [address] Jul, [facility] [address] [id number] [address] [place] [address], [place] [address] Jul, [facility] [address] [id number] [address] [place] [address], [place] [address] Jul, [facility] [address] [id number] [address] [place] [address], [place] [address] Jul, [facility] [address] [id number] [address] [place] [address], [place] [address] Jul, [facility] [address] [id number] [address] [place] [address], [place] [address] Jul, [facility] [address] [id number] [address] [place] [address], [place] [address] Jul, [facility] [address] [id number] [address] [place] [address], [place] [address] Jul, [facility] [facility] [address] [id number] [address] [place] [address], [place] [address] Jul, 2012 [facility] [address] [id number] [address] [place] [address], [place] [address] Jul, [facility] [address] [id number] [address] [place] [address], [place] [address] Jul, 2012 [facility] [address] [id number] [address] [place] [address], [place] [address] Jul, 2012 [facility] [address] [id number] [address] [place] [address], [place] [address] Jul, 2012 [facility] [address] [id number] [address] [place] [address], [place] [address] Jul, [facility] [address] [id number] [address] [place] [address], [place] [address] Jul, [facility] [address] [id number] [address] [place] [address], [place] [address] Jul, [facility] [address] [id number] [address] [place] [address], [place] [address] Jul, [facility] [address] [id number] [address] [place] [address] Jun, [facility] [address] [id number] [address] [place] [address] Jun, 2012 [facility] [address] [id number] [address] [place] [address] Jun, [facility] [address] [id number] [address] [place] [address], [place] [address] Jun, [facility] [address] [id number] [address] [place] [address], [place] [address] Jun, [facility] [address] [id number] [address] [place] [address] Jun, [facility] [address] [id number] [address] [place] [address] [place] [address] 10 Jun, 2013 [facility] [address] [id number] [address] [place] [address], [place] [address] Jun, [facility] [address] [id number] [address] [place] [address], [place] [address] Jun, [facility] [address] [id number] [address] [place] [address], [place] [address] Jun, [facility] [address] [id number] [address] [place] [address], [place] [address] Jun, [facility] [address] [id number] [address] [place] [address], [place] [address] 26 May, 2012 [facility] [address] [id number] [address] [place] [address], [place] [address] 25 May, 2012 [facility] [address] [id number] [address] [place] [address], [place] [address] 19 May, 2012 [facility] [address] [id number] [address] [place] [address], [place] [address] 17 May, 2012 [facility] [address] [id number] [address] [place] [address], [place] [address] 11 May, 2012 [facility] [address] [id number] [address] [place] [address], [place] [address] 10 May, 2012 [facility] [address] [id number] [address] [place] [address], [place] [address] 09 May, 2012 [facility] [address] [id number] [address] [place] [address], [place] [address] 05 May, 2012 [facility] [address] [id number] [address] [place] [address], [place] [address] 30 Apr, 2013 [facility] [address] [id number] [address] [place] [address], [place] [address] Apr, [facility] [address] [id number] [address] [place] [address], [place] [address] Apr, [facility] [address] [id number] [address] [place] [address], [place] [address] Apr, [facility] [address] [id number] [address] [place] [address], [place] [address] Apr, [facility] [address] [id number] [address] [place] [address], [place] [address] Mar, [facility] [address] [id number] [address] [place] [address], [place] [address] Mar, [facility] [address] [id number] [address] [place] [address], [place] [address] Mar, [facility] [address] [id number] [address] [place] [address], [place] [address] Mar, [facility] [address] [id number] [address] [place] [address], [place] [address] Mar, [facility] [address] [id number] [address] [place] [address], [place] [address] Mar, [facility] [address] [id number] [address] [place] [address], [place] [address] Mar, [facility] [address] [id number] [address] [place] [address], [place] [address] Mar, [facility] [address] [id number] [address] [place] [address], [place] [address] Feb, [facility] [address] [id number] [address] [place] [address], [place] [address] Feb, [facility] [address] [id number] [address] [place] [address], [place] [address] January, [facility] [address] [id number] [address] [place] [address], [place] [address] January, [facility] [address] [id number] [address] [place] [address], [place] [address] Dec, [facility] [address] [id number] [address] [place] [address], [place] [address] Dec, [facility] [address] [id number] [address] [place] [address], [place] [address] Nov, [facility] [address] [id number] [address] [place] [address], [place] [address] Nov, [facility] [address] [id number] [address] [place] [address], [place] [address] Nov, [facility] [address] [id number] [address] [place] [address], [place] [address] Nov, [facility] [address] [id number] [address] [place] [address], [place] [address] Oct, [facility] [address] [id number] [address] [place] [address], [place] [address] Oct, [facility] [address] [id number] [address] [place] [address], [place] [address] Oct, [facility] [address] [id number] [address] [place] [address], [place] [address] 26 Oct, 2012 [facility] [address] [id number] [address] [place] [address], [place] [address] 16 Oct, 2012 [facility] [address] [id number] [address] [place] [address], [place] [address] 14 Oct, 2012 [facility] [address] [id number] [address] [place] [address], [place] [address] 08 Oct, 2012 [facility] [address] [id number] [address] [place] [address], [place] [address] 07 Oct, 2012 [facility] [address] [id number] [address] [place] [address], [place] [address] 03 Oct, 2012 [facility] [address] [id number] [address] [place] [address], [place] [address] 30 Sep, 2012 [facility] [address] [id number] [address] [place] [address], [place] [address] Sep, [facility] [address] [id number] [address] [place] [address], [place] [address] Sep, [facility] [address] [id number] [address] [place] [address], [place] [address] Sep, [facility] [address] [id number] [address] [place] [address], [place] [address] Sep, [facility] [address] [id number] [address] [place] [address], [place] [address] Sep, [facility] [address] [id number] [address] [place] [address], [place] [address] Sep, [facility] [address] [id number] [address] [place] [address], [place] [address] Sep, [facility] [address] [id number] [address] [place] [address], [place] [address] Aug, [facility] [address] [id number] [address] [place] [address], [place] [address] Aug, [facility] [address] [id number] [address] [place] [address], [place] [address] Aug, [facility] [address] [id number] [address] [place] [address], [place] [address] Aug, [facility] [address] [id number] [address] [place] [address], [place] [address] Aug, [facility] [address] [id number] [address] [place] [address], [place] [address] Aug, [facility] [address] [id number] [address] [place] [address], [place] [address] Aug, [facility] [address] [id number] [address] [place] [address], [place] [address] Aug, [facility] [address] [id number] [address] [place] [address], [place] [address] Jul, [facility] [address] [id number] [address] [place] [address], [place] [address] Jul, [facility] [address] [id number] [address] [place] [address], [place] [address] Jul, [facility] [address] [id number] [address] [place] [address], [place] [address] Jul, [facility] [address] [id number] [address] [place] [address], [place] [address] Jul, [facility] [address] [id number] [address] [place] [address], [place] [address] Jul, [facility] [address] [id number] [address] [place] [address], [place] [address] Jun, [facility] [address] [id number] [address] [place] [address] Jun, [facility] [address] [id number] [address] [place] [address], [place] [address] Jun, [facility] [address] [id number] [address] [place] [address], [place] [address] Jun, [facility] [address] [id number] [address] [place] [address], [place] [address] Jun, [facility] [address] [id number] [address] [place] [address] Jun, [facility] [address] [id number] [address] [place] [address] Jun, [facility] [address] [id number] [address] [place] [address] 10 Jun, 2012 [facility] [address] [id number] [address] [place] [address], [place] [address] 10 Jun, 2012 [facility] [address] [id number] [address] [place] [address], [place] [address] 26 May, 2012 [facility] [address] [id number] [address] [place] [address], [place] [address] 24 May, 2012 [facility] [address] [id number] [address] [place] [address], [place] [address] May, [facility] [address] [id number] [address] [place] [address], [place] [address] Apr, [facility] [address] [id number] [address] [place] [address], [place] [address] Apr, [facility] [address] [id number] [address] [place] [address], [place] [address] Apr, [facility] [address] [id number] [address] [place] [address], [place] [address] Apr, [facility] [address] [id number] [address] [place] [address], [place] [address] Apr, [facility] [address] [id number] [address] [place] [address], [place] [address] Apr, [facility] [address] [id number] [address] [place] [address], [place] [address] Mar, [facility] [address] [id number] [address] [place] [address], [place] [address] Mar, [facility] [address] [id number] [address] [place] [address], [place] [address] Mar, [facility] [address] [id number] [address] [place] [address], [place] [address] Mar, [facility] [address] [id number] [address] [place] [address], [place] [address] Feb, [facility] [address] [id number] [address] [place] [address], [place] [address] Feb, [facility] [address] [id number] [address] [place] [address], [place] [address] Feb, [facility] [address] [id number] [address] [place] [address], [place] [address] Feb, [facility] [address] [id number] [address] [place] [address], [place] [address] Feb, [facility] [address] [id number] [address] [place] [address], [place] [address] January, [facility] [address] [id number] [address] [place] [address], [place] [address] January, [facility] [address] [id number] [address] [place] [address], [place] [address] January, [facility] [address] [id number] [address] [place] [address], [place] [address] January, [facility] [address] [id number] [address] [place] [address], [place] [address] January, [facility] [address] [id number] [address] [place] [address], [place] [address] January, [facility] [address] [id number] [address] [place] [address], [place] [address] Dec, [facility] [address] [id number] [address] [place] [address], [place] [address] Dec, [facility] [address] [id number] [address] [place] [address], [place] [address] Dec, [facility] [address] [id number] [address] [place] [address], [place] [address] Dec, [facility] [address] [id number] [address] [place] [address], [place] [address] Dec, [facility] [address] [id number] [address] [place] [address], [place] [address] Nov, [facility] [address] [id number] [address] [place] [address], [place] [address] 14 Nov, 2011 [facility] [address] [id number] [address] [place] [address], [place] [address] 12 Nov, 2011 [facility] [address] [id number] [address] [place] [address], [place] [address] 07 Nov, 2011 [facility] [address] [id number] [address] [place] [address], [place] [address] 29 Oct, 2011 [facility] [address] [id number] [address] [place] [address], [place] [address] 28 Oct, 2011 [facility] [address] [id number] [address] [place] [address], [place] [address] 24 Oct, 2011 [facility] [address] [id number] [address] [place] [address], [place] [address] Oct, [facility] [address] [id number] [address] [place] [address], [place] [address] Oct, [facility] [address] [id number] [address] [place] [address], [place] [address] Sep, [facility] [address] [id number] [address] [place] [address], [place] [address] Sep, [facility] [address] [id number] [address] [place] [address], [place] [address] Sep, [facility] [address] [id number] [address] [place] [address], [place] [address] Sep, [facility] [address] [id number] [address] [place] [address], [place] [address] Sep, [facility] [address] [id number] [address] [place] [address], [place] [address] Sep, [facility] [address] [id number] [address] [place] [address], [place] [address] Aug, [facility] [address] [id number] [address] [place] [address], [place] [address] Aug, [facility] [address] [id number] [address] [place] [address], [place] [address] Aug, [facility] [address] [id number] [address] [place] [address], [place] [address] Jul, [facility] [address] [id number] [address] [place] [address], [place] [address] Jul, [facility] [address] [id number] [address] [place] [address], [place] [address] Jul, [facility] [address] [id number] [address] [place] [address], [place] [address] Jul, [facility] [address] [id number] [address] [place] [address], [place] [address] Jun, [facility] [address] [id number] [address] [place] [address], [place] [address] Jun, [facility] [address] [id number] [address] [place] [address], [place] [address] Jun, [facility] [address] [id number] [address] [place] [address], [place] [address] Jun, [facility] [address] [id number] [address] [place] [address], [place] [address] Jun, [facility] [address] [id number] [address] [place] [address], [place] [address] Jun, [facility] [address] [id number] [address] [place] [address], [place] [address] Mar, [facility] [address] [id number] [address] [place] [address], [place] [address] Dec, [facility] [address] [id number] [address] [place] [address], [place] [address] Dec, [facility] [address] [id number] [address] [place] [address], [place] [address] Nov, [facility] [address] [id number] [address] [place] [address], [place] [address] 16 Nov, 2010 [facility] [address] [id number] [address] [place] [address], [place] [address] Sep, [facility] [address] [id number] [address] [place] [address], [place] [address] Aug, [facility] [address] [id number] [address] [place] [address], [place] [address] 29 Aug, 2010 [facility] [address] [id number] [address] [place] [address], [place] [address] 29 Aug, 2010 [facility] [address] [id number] [address] [place] [address], [place] [address] 29 Aug, 2010 [facility] [address] [id number] [address] [place] [address], [place] [address] 27 Aug, 2010 [facility] [address] [id number] [address] [place] [address], [place] [address] 14 Aug, 2010 [facility] [address] [id number] [address] [place] [address], [place] [address] 08 Aug, 2010 [facility] [address] [id number] [address] [place] [address], [place] [address] 08 Aug, 2010 [facility] [address] [id number] [address] [place] [address], [place] [address] 07 Aug, 2010 [facility] [address] [id number] [address] [place] [address], [place] [address] 06 Aug, 2010 [facility] [address] [id number] [address] [place] [address], [place] [address] 06 Aug, 2010 [facility] [address] [id number] [address] [place] [address], [place] [address] Aug, [facility] [address] [id number] [address] [place] [id number] 30 Jul, 2010 [facility] [address] [id number] [address] [place] [id number] 30 Jul, 2010 [facility] [address] [id number] [address] [place] [address], [place] [address] 30 Jul, 2010 [facility] [address] [id number] [address] [place] [address], [place] [address] 17 Jul, 2010 [facility] [address] [id number] [address] [place] [id number] 08 Jul, 2010 [facility] [address] [id number] [address] [place] [address], [place] [address] Jul, [facility] [address] [id number] [address] [place] [address], [place] [address] 24 Jun, 2010 [facility] [address] [id number] [address] [place] [address], [place] [address] Jun, [facility] [address] [id number] [address] [place] [address], [place] [address] Jun, [facility] [address] [id number] [address] [place] [address], [place] [address] 13 Jun, 2010 [facility] [address] [id number] [address] [place] [address], [place] [address] 16 Apr, 2010 [facility] [address] [id number] [address] [place] [address], [place] [address] Mar, [facility] [address] [id number] [address] [place] [address], [place] [address] Feb, [facility] [address] [id number] [address] [place] [address], [place] [address] January, [facility] [address] [id number] [address] [place] [address], [place] [address] 15 Dec, 2009 [facility] [address] [id number] [address] [place] [address], [place] [address] Nov, [facility] [address] [id number] [address] [place] [address], [place] [address] Aug, [facility] [address] [id number] [address] [place] [address], [place] [address] Aug, [facility] [address] [id number] [address] [place] [address], [place] [address] Aug, [facility] [address] [id number] [address] [place] [address], [place] [address] Jul, [facility] [address] [id number] [address] [place] [address], [place] [address] Jul, [facility] [address] [id number] [address] [place] [id number] Jul, [facility] [address] [id number] [address] [place] [id number] Jun, [facility] [address] [id number] [address] [place] [id number] Jun, [facility] [address] [id number] [address] [place] [id number] Jun, [facility] [address] [id number] [address] [place] [id number] Jun, [facility] [address] [id number] [address] [place] [phone] Jun, [facility] [address] [id number] [address] [place] [id number] Jun, [facility] [address] [id number] [address] [place] [id number] Apr, [facility] [address] [id number] [address] [place] [id number] Apr, [facility] [address] [id number] [address] [place] [id number] Feb, [facility] [address] [id number] [address] [place] [id number] January, [facility] [address] [id number] [address] [place] [phone] Dec, IMMUNIZATIONS No Known Immunizations SOCIAL HISTORY [...] obesity Medical History skin cancer-basal cell R yazidi (removed ) Medical History Arthritis Medical History [...] colonoscopy 2009 ([facility]ly [facility]), 2013 ([place] ) Surgical History heart cath: CAD [...] inability to urinate 09/16/[address] [facility] inpatient mental health ea rly 1999's Hospitalization History hyperkalemia 10/2017 Hospitalization History fluid in lung
--- OUTSIDE RECORDS SUMMARY | 2020-03-01 17:12 | XMS REPORT ---
Author Author Michele WASHBURN Organization [facility] Address [address] [place] [address] Care Team Providers Care Show Host Name Role Phone NOEMI WASHBURN Unavailable PROBLEMS Type Condition ICD9-CM Code CYC21-SR Code Onset Dates Condition S tatus SNOMED Code Problem Cough R05 Active 01937987 Problem Benign prostatic hyperplasia with lower urinary tract symptoms, unspecified morphology N40.1 Active 50889 6007 Problem Eustachian tube dysfunction, unspecified laterality H69.80 Active 18397208 Problem Chronic pain G89.29 Active 0792398 1 Problem DM neuro manif type II E11.49 Active 71675351 Problem Diabetes E11.9 Active 65180535 Problem Leukocytosis D72.829 Active 1087981 06 Problem Falling R29.6 Active 416854239 Problem Pressure ulcer of other site, stage 3 L89.893 Active 456027973 Problem 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 Active 655674716 Problem Eye exam abnormal R93.8 Active 16 1600713 Problem Dysuria R30.0 Active 82997484 Problem Hypokalemia E87.6 Active 27893816 Problem Morbid obesity E66.01 Active 97104 6002 Problem Anxiety F41.9 Active 35266514 Problem Diabetic polyneuropathy associated with type 2 d iabetes mellitus E11.42 Active 32377889 Problem Essential hypertension I10 Active 16735068 Problem Bilateral primary osteoarthritis of knee M17.0 Active 545837193 Problem Polyneuropathy associated with underlying disease G63 Active 044632291 Problem Anemia of chronic illness D63.8 Acti ve 792099101 Problem Lymphocytosis D72.820 Active 454095 09 Problem Retinal edema H35.81 Active 152497 6 Problem Chronic lymphocytic leukemia C91.10 A ctive 83569526 Problem Bipolar disorder, in partial remission, most rec ent episode depressed F31.75 Active 53064725 Problem Pure hypercholesterolemia E78.00 Acti ve 048701800 Problem Primary osteoarthritis of right knee M17.11 Active 328154804913107 Problem Bipolar disorder F31.9 Active 137 02230 Problem Bipolar I disorder, most recent episode (or curr ent) mixed, moderate F31.62 Active 68398664 Problem Chronic diastolic (congestive) heart failure I50.3 2 Active 505089910 Problem Reactive airway disease J45.909 Active 829932914403 Problem Insomnia, unspecified type G47.00 Act sharon 999851572 Problem Other chronic pain G89.29 Active 8 2777326 Problem Other iron deficiency anemia D50.8 A ctive 19668444 Problem Mild cognitive impairment G31.84 Acti ve 969376848 Problem Skin cancer C44.90 Active 47402318 7 ALLERGIES No Information ENCOUNTERS Encounter Location Date Diagnosis [place] [address] [facility] [id number] [address] [place] [phone] Jun, [place] [address] [place] [id number] [address] [place] [address] Jun, [facility] [address] [place] [id number] [address] [place] [address] May, [facility] [address] [place] [id number] [address] [place] [address] May, [place] [address] [place] [id number] [address] [place] [address] Apr, Chronic pain G89.29 and Bipo lar disorder F31.9 [facility] [address] [facility] [id number] [address] [place] [address] Mar, Bipolar disorder F31.9 and C hronic pain G89.29 [facility] [address] [facility] [id number] [address] [place] [address] Feb, Bipolar disorder F31.9 [facility] [address] [facility] [id number] [address] [place] [address] Feb, Cellulitis of right upper ex tremity L03.113 and Skin abrasion T14.8XXA [facility] [address] [facility] [id number] [address] [place] [phone] Feb, Bipolar disorder, in partial remission, most recent episode depressed F31.75 and Mild cognitive impairment G31.84 [facility] [address] [id number] [address] [place] [phone] Feb, Chronic pain G89.29 [facility] [address] [id number] [address] [place] [address] Feb, Bipolar disorder, in partial remission, most recent episode depressed F31.75 and Mild cognitive impairment G31.84 [facility] [address] [id number] [address] [place] [address] January, Bipolar disorder, in partial remission, most recent episode depressed F31.75 and Mild cognitive impairment G31.84 [facility] [address] [id number] [address] [place] [address] January, Chronic pain G89.29 and Bipo lar disorder F31.9 [facility] [address] [id number] [address] [place] [address] January, Bipolar disorder, in partial remission, most recent episode depressed F31.75 and Mild cognitive impairment G31.84 [facility] [address] [id number] [address] [place] [id number] Dec, [facility] [address] [id number] [address] [place] [phone] Dec, Chronic pain G89.29 and Bipo lar disorder F31.9 [facility] [address] [id number] [address] [place] [address] Dec, Edema of both lower extremit ies R60.0 [facility] [address] [id number] [address] [place] [address] Dec, Bipolar disorder F31.9 [facility] [address] [id number] [address] [place] [address] Dec, Bipolar disorder, in partial remission, most recent episode depressed F31.75 and Mild cognitive impairment G31.84 [place] [address] [facility] [id number] [address] [place] [address] Nov, [place] [address] [facility] [id number] [address] [place] [address] Nov, Chronic pain G89.29 [place] [address] [facility] [id number] [address] [place] [address] Nov, Bipolar disorder, in partial remission, most recent episode depressed F31.75 and Mild cognitive impairment G31.84 [place] [address] [facility] [id number] [address] [place] [address] Nov, Bipolar disorder F31.9 [place] [address] [facility] [id number] [address] [place] [phone] 04 Nov, 2018 Encounter for Medicare annua [...] unspecified morphology N40.1 and Essential hypertension I10 [place] [address] [facility] [id number] [address] [place] [phone] Oct, Chronic pain G89.29 [place] [address] [facility] [id number] [address] [place] [address] Oct, Diabetes E11.9 [place] [address] [facility] [id number] [address] [place] [address] Oct, Bipolar I disorder, most rec ent episode (or current) mixed, moderate F31.62 and Mild cognitive impairment G31.84 [place] [address] [facility] [id number] [address] [place] [address] Oct, Bipolar I disorder, most rec ent episode (or current) mixed, moderate F31.62 and Mild cognitive impairment G31.84 [place] [address] [facility] [id number] [address] [place] [address] Sep, Bipolar I disorder, most rec ent episode (or current) mixed, moderate F31.62 and Mild cognitive impairment G31.84 [place] [address] [place] [id number] [address] [place] [address] Sep, [place] [address] [place] [id number] [address] [place] [address] Sep, Diabetes E11.9 ; Hypoxia R09 .02 ; Hyperglycemia R73.9 ; Therapeutic drug monitoring Z51.81 ; BMI 50.0-59.9, adult Z68.43 and Skin cancer C44.90 [place] [address] [place] [id number] [address] [place] [address] Sep, Chronic pain G89.29 [place] [address] [place] [id number] [place] [address] Sep, Bipolar I disorder, most rec ent episode (or current) mixed, moderate F31.62 [place] [address] [place] [id number] [address] [place] [address] Sep, [place] [address] [place] [id number] [place] [address] Sep, [place] [address] [place] [id number] [place] [address] Aug, Chronic pain G89.29 [place] [address] [facility] [id number] [address] [place] [address] Aug, Bipolar I disorder, most rec ent episode (or current) mixed, moderate F31.62 [place] [address] [place] [id number] [place], [place] [id number] Aug, Bipolar I disorder, most rec ent episode (or current) mixed, moderate F31.62 and Mild cognitive impairment G31.84 [place] [address] [place] [id number] [address] [place] [address] Jul, [facility] [address] [id number] [address] [place] [address] Jul, Chronic pain G89.29 [facility] [address] [id number] [address] [place] [id number] Jul, Bipolar I disorder, most rec ent episode (or current) mixed, moderate F31.62 and Mild cognitive impairment G31.84 [facility] [address] [id number] [address] [place] [address] Jul, Bipolar I disorder, most rec ent episode (or current) mixed, moderate F31.62 and MCI (mild cognitive impairment) G31.84 [facility] [address] [id number] [address] [place] [phone] Jul, [facility] [address] [id number] [address] [place] [address] Jul, [facility] [address] [id number] [address] [place] [address] Jul, Bipolar I disorder, most rec ent episode (or current) mixed, moderate F31.62 [facility] [address] [id number] [address] [place] [phone] Jul, Chronic pain G89.29 [facility] [address] [id number] [address] [place] [address] Jun, Bipolar I disorder, most rec ent episode (or current) mixed, moderate F31.62 [facility] [address] [id number] [address] [place] [address] Jun, Pre-procedure lab exam Z01.8 12 [facility] [address] [id number] [address] [place] [phone] Jun, [facility] [place] [address] [id number] [place] [id number] Jun, [facility] [address] [facility] [id number] [address] [place] [phone] Jun, [place] [address] [facility] [id number] [address] [place] [address] Jun, Forgetfulness R68.89 ; Pre-s yncope R55 ; Localized edema R60.0 ; Other iron deficiency anemia D50.8 and BMI 50.0-59.9, adult Z68.43 [place] [address] [facility] [id number] [address] [place] [address] Jun, Chronic pain G89.29 [place] [address] [place] [id number] [place] [address] Jun, Chronic pain G89.29 [place] [address] [place] [id number] [place] [address] Jun, Bipolar I disorder, most rec ent episode (or current) mixed, moderate F31.62 [place] [address] [place] [id number] [place] [id number] May, Chronic pain G89.29 [place] [address] [place] [id number] [place] [address] Apr, [place] [address] [place] [id number] [place] [address] Apr, Chronic pain G89.29 [place] [address] [place] [id number] [place] [address] Apr, Primary osteoarthritis of ri t knee M17.11 [place] [address] [facility] [id number] [address] [place] [phone] Mar, [place] [address] [place] [id number] [place] [phone] Mar, BMI 50.0-59.9, adult Z68.43 and Bipolar disorder, in partial remission, most recent episode depressed F31.75 [place] [address] [place] [id number] [place] [address] Mar, Diabetes E11.9 ; Pure hyperc holesterolemia E78.00 ; Essential hypertension I10 ; Nausea with vomiting, unspecified R11.2 and Headache, unspecified headache type R51 [place] [address] [place] [id number] [place] [phone] Mar, Bipolar I disorder, most rec ent episode (or current) mixed, moderate F31.62 [place] [address] [place] [id number] [place] [phone] Mar, Bipolar I disorder, most rec ent episode (or current) mixed, moderate F31.62 [place] [address] [place] [id number] [place] [address] Mar, Chronic pain G89.29 [place] [address] [place] [id number] [place] [address] Mar, Bipolar I disorder, most rec ent episode (or current) mixed, moderate F31.62 [place] [address] [place] [id number] [place] [address] Feb, Bipolar I disorder, most rec ent episode (or current) mixed, moderate F31.62 [place] [address] [place] [id number] [place] [address] Feb, Chronic pain G89.29 [place] [address] [place] [id number] [place] [address] Feb, Decubitus ulcer of right josselin t, stage 3 L89.893 and BMI 50.0-59.9, adult Z68.43 [place] [address] [place] [id number] [place] [address] Feb, Bipolar I disorder, most rec ent episode (or current) mixed, moderate F31.62 [place] [address] [place] [id number] [place] [address] Feb, [place] [address] [place] [id number] [place] [phone] January, [facility] [address] [facility] [id number] [address] [place] [phone] January, Chronic pain G89.29 [facility] [address] [facility] [id number] [address] [place] [address] January, Bipolar I disorder, most rec ent episode (or current) mixed, moderate F31.62 [place] [address] [place] [id number] [place] [phone] January, Bipolar I disorder, most rec ent episode (or current) mixed, moderate F31.62 [place] [address] [facility] [id number] [address] [place] [address] Dec, Bipolar I disorder, most rec ent episode (or current) mixed, moderate F31.62 and BMI 50.0-59.9, adult Z68.43 [place] [address] [place] [id number] [place] [address] Dec, Bipolar I disorder, most rec ent episode (or current) mixed, moderate F31.62 [place] [address] [place] [id number] [place] [address] Dec, Chronic pain G89.29 [place] [address] [place] [id number] [place] [address] Dec, DM neuro manif type II E11.4 9 ; Right flank pain R10.9 ; [facility] 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 Z79.891 ; Encounter for medication monitoring Z51.81 and BMI 50.0-59.9, adult Z68.43 [place] [address] [place] [id number] [place] [phone] Dec, Bipolar I disorder, most rec ent episode (or current) mixed, moderate F31.62 [place] [address] [place] [id number] [address] [place] [phone] Nov, Bipolar I disorder, most rec ent episode (or current) mixed, moderate F31.62 [place] [address] [place] [id number] [address] [place] [address] Nov, Chronic pain G89.29 [facility] [address] [facility] [id number] [address] [place] [phone] Nov, Bipolar I disorder, most rec ent episode (or current) mixed, moderate F31.62 [facility] [address] [place] [id number] [place] [phone] Nov, Hypokalemia E87.6 [facility] [address] [place] [id number] [address] [place] [address] Nov, Bipolar I disorder, most rec ent episode (or current) mixed, moderate F31.62 [place] [address] [place] [id number] [place] [address] Oct, Chronic pain G89.29 [facility] [address] [place] [id number] [place] [address] Oct, BMI 50.0-59.9, adult Z68.43 and Bipolar I disorder, most recent episode (or current) mixed, moderate F31.62 [facility] [address] [place] [id number] [place] [address] Oct, Bipolar I disorder, most rec ent episode (or current) mixed, moderate F31.62 [facility] [address] [place] [id number] [address] [place] [address] Oct, [facility] [address] [place] [id number] [place] [address] Oct, Hypokalemia E87.6 [facility] [address] [place] [id number] [place] [address] Oct, DM neuro manif type II E11.4 9 [facility] [address] [place] [id number] [place] [address] Oct, Bipolar I disorder, most rec ent episode (or current) mixed, moderate F31.62 [facility] [address] [address] 20 Oct, 2017 Bipolar I disorder, most rec ent episode (or current) mixed, moderate F31.62 [place] [address] [address] 14 Oct, 2017 Hyperkalemia E87.5 ; Falling R29.6 ; BMI 50.0-59.9, adult Z68.43 and Acute left ankle pain M25.572 [place] [address] [address] 08 Oct, 2017 DM neuro manif type II E11.[address] [address] Oct, [place] [address] [address] Sep, Chronic pain G89.29 [place] [address] [address] Sep, [place] [address] [address] Sep, Bilateral primary osteoarthr itis of knee M17.[address] [address] Sep, Generalized edema R60.[address] [address] 16 Sep, 2017 Bipolar I disorder, most rec ent episode (or current) mixed, moderate F31.62 [place] [address] [address] 15 Sep, 2017 Hypoxia R09.02 ; Other hyper volemia E87.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 ; Anemia of chronic illness D63.8 and BMI 50.0- 59.9, adult Z68.43 [place] [address] [facility] [id number] [address] [place] [address] Sep, [place] [address] [facility] [id number] [address] [place], [place] [address] Sep, Bipolar I disorder, most rec ent episode (or current) mixed, moderate F31.62 [place] [address] [place] [id number] [address] [place] [address] Aug, Chronic pain G89.29 [place] [address] [place] [id number] [place] [address] Aug, Generalized edema R60.1 [place] [address] [place] [id number] [place] [address] Aug, [place] [address] [place] [id number] [place] [address] Aug, [place] [address] [place] [id number] [place] [address] Aug, Bipolar I disorder, most rec ent episode (or current) mixed, moderate F31.62 [place] [address] [place] [id number] [address] [place] [address] Aug, Bipolar I disorder, most rec ent episode (or current) mixed, moderate F31.62 [place] [address] [place] [id number] [address] [place] [address] Aug, Chronic pain G89.29 [place] [address] [place] [id number] [address] [place] [address] Jul, Bipolar I disorder, most rec ent episode (or current) mixed, moderate F31.62 [place] [address] [place] [id number] [address] [place] [address] Jul, Bipolar I disorder, most rec ent episode (or current) mixed, moderate F31.62 and BMI 60.0-69.9, adult Z68.44 [place] [address] [place] [id number] [place] [address] Jul, Bipolar I disorder, most rec ent episode (or current) mixed, moderate F31.62 [facility] [address] [facility] [id number] [address] [place] [address] Jul, Chronic pain G89.29 [facility] [address] [facility] [id number] [address] [place] [address] Jul, Bipolar I disorder, most rec ent episode (or current) mixed, moderate F31.62 [facility] [address] [facility] [id number] [address] [place] [address] Jun, Polyneuropathy associated wi th underlying disease G63 and Diabetes E11.9 [facility] [address] [facility] [id number] [address] [place] [address] Jun, Bipolar I disorder, most rec ent episode (or current) mixed, moderate F31.62 [place] [address] [place] [id number] [address] [place] [address] Jun, Chronic pain G89.29 [facility] [address] [facility] [id number] [address] [place] [address] May, Bipolar I disorder, most rec ent episode (or current) mixed, moderate F31.62 [facility] [address] [facility] [id number] [address] [place] [address] May, Bipolar I disorder, most rec ent episode (or current) mixed, moderate F31.62 [facility] [address] [facility] [id number] [address] [place] [address] May, Diabetic polyneuropathy asso ciated with type 2 diabetes mellitus E11.42 [facility] [address] [facility] [id number] [address] [place] [id number] 18 May, 2017 Bipolar I disorder, most rec ent episode (or current) mixed, moderate F31.62 [facility] [address] [facility] [id number] [address] [place] [phone] 13 May, 2017 Bipolar I disorder, most rec ent episode (or current) mixed, moderate F31.62 [facility] [address] [id number] [address] [place] [address] May, Chronic pain G89.29 [facility] [address] [id number] [address] [place] [address] Apr, Bipolar I disorder, most rec ent episode (or current) mixed, moderate F31.62 [facility] [address] [id number] [address] [place] [address] Apr, [facility] [address] [id number] [address] [place] [id number] Apr, Chronic pain G89.29 and DM n euro manif type II E11.49 [facility] [address] [id number] [address] [place] [phone] Apr, [facility] [address] [id number] [address] [place] [id number] Apr, Bipolar I disorder, most rec ent episode (or current) mixed, moderate F31.62 [facility] [address] [id number] [address] [place] [phone] Apr, Chronic pain G89.29 [facility] [address] [id number] [address] [place] [id number] Apr, Iliotibial band syndrome, le ft M76.32 [facility] [address] [id number] [address] [place] [phone] Apr, Bipolar I disorder, most rec ent episode (or current) mixed, moderate F31.62 [facility] [address] [id number] [address] [place] [phone] Mar, Bipolar I disorder, most rec ent episode (or current) mixed, moderate F31.62 [facility] [address] [facility] [id number] [address] [place] [phone] Mar, Bipolar I disorder, most rec ent episode (or current) mixed, moderate F31.62 [facility] [address] [facility] [id number] [address] [place] [phone] Mar, [facility] [address] [facility] [id number] [address] [place] [phone] Mar, Bipolar I disorder, most rec ent episode (or current) mixed, moderate F31.62 [facility] [address] [facility] [id number] [address] [place] [address] Mar, Chronic pain G89.29 [facility] [address] [facility] [id number] [address] [place] [address] Mar, Bipolar I disorder, most rec ent episode (or current) mixed, moderate F31.62 [place] [address] [facility] [id number] [address] [place] [address] Mar, Bipolar I disorder, most rec ent episode (or current) mixed, moderate F31.62 [place] [address] [place] [id number] [address] [place] [address] Mar, Acute pain of left knee M25. 562 ; Left hip pain M25.552 ; Generalized edema R60.1 and Tongue swelling R22.0 [facility] [address] [facility] [id number] [address] [place] [address] Mar, [facility] [address] [facility] [id number] [address] [place] [id number] Feb, Chronic pain G89.29 [facility] [address] [facility] [id number] [address] [place] [address] Feb, Diabetes E11.9 [facility] [address] [facility] [id number] [address] [place] [id number] January, Chronic pain G89.29 [facility] [address] [facility] [id number] [address] [place] [id number] January, [facility] [address] [facility] [id number] [address] [place] [id number] January, Bipolar I disorder, most rec ent episode (or current) mixed, moderate F31.62 [facility] [address] [id number] [address] [place] [id number] Dec, Bipolar I disorder, most rec ent episode (or current) mixed, moderate F31.62 [facility] [address] [id number] [address] [place] [id number] Dec, Chronic pain G89.29 [facility] [address] [facility] [id number] [address] [place] [phone] Dec, Bipolar I disorder, most rec ent episode (or current) mixed, moderate F31.62 [facility] [address] [facility] [id number] [address] [place] [id number] Dec, Diabetes E11.9 ; Essential h ypertension I10 ; Chronic pain G89.29 and Morbid obesity E66.01 [facility] [address] [facility] [id number] [address] [place] [address] Dec, [facility] [address] [facility] [id number] [address] [place] [id number] Dec, Bipolar I disorder, most rec ent episode (or current) mixed, moderate F31.62 [facility] [address] [facility] [id number] [address] [place] [address] Dec, Bipolar I disorder, most rec ent episode (or current) mixed, moderate F31.62 [facility] [address] [facility] [id number] [address] [place] [id number] Nov, Chronic pain G89.29 [facility] [address] [id number] [address] [place] [id number] Nov, Bipolar I disorder, most rec ent episode (or current) mixed, moderate F31.62 [facility] [address] [facility] [id number] [address] [place] [id number] Nov, [facility] [address] [facility] [id number] [address] [place] [phone] Nov, Bipolar I disorder, most rec ent episode (or current) mixed, moderate F31.62 [facility] [address] [facility] [id number] [address] [place] [id number] Nov, Bipolar I disorder, most rec ent episode (or current) mixed, moderate F31.62 [facility] [address] [facility] [id number] [address] [place] [address] Nov, [facility] [address] [facility] [id number] [address] [place] [id number] Nov, [facility] [address] [facility] [id number] [address] [place] [address] Nov, [facility] [address] [facility] [id number] [address] [place] [address] Oct, Chronic pain G89.29 [facility] [address] [facility] [id number] [address] [place] [phone] Oct, Bipolar I disorder, most rec ent episode (or current) mixed, moderate F31.62 [facility] [address] [facility] [id number] [address] [place] [id number] Oct, [facility] [address] [facility] [id number] [address] [place] [address] Oct, Chronic pain G89.29 ; Diabet es E11.9 ; Anxiety F41.9 and 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 [facility] [address] [facility] [id number] [address] [place] [address] Oct, [facility] [address] [facility] [id number] [address] [place] [address] Oct, Diabetes E11.9 [facility] [address] [facility] [id number] [address] [place] [id number] Oct, Bipolar I disorder, most rec ent episode (or current) mixed, moderate F31.62 [facility] [address] [facility] [id number] [address] [place] [address] Sep, Chronic pain G89.29 [facility] [address] [id number] [address] [place] [address] Sep, Chronic pain G89.29 [facility] [address] [facility] [id number] [address] [place] [address] Aug, Chronic pain G89.29 [facility] [address] [facility] [id number] [address] [place] [id number] Jul, [facility] [address] [facility] [id number] [address] [place] [id number] Jul, Diabetes E11.9 [facility] [address] [facility] [id number] [address] [place] [address] Jul, Chronic pain G89.29 [facility] [address] [facility] [id number] [address] [place] [id number] Jul, Bipolar I disorder, most rec ent episode (or current) mixed, moderate F31.62 [facility] [address] [facility] [id number] [address] [place] [phone] Jun, Bipolar I disorder, most rec ent episode (or current) mixed, moderate F31.62 [facility] [address] [facility] [id number] [address] [place] [address] Jun, [facility] [address] [facility] [id number] [address] [place] [address] Jun, Bipolar I disorder, most rec ent episode (or current) mixed, moderate F31.62 [facility] [address] [facility] [id number] [address] [place] [id number] 30 May, 2016 Insomnia, unspecified type G 47.00 [facility] [address] [facility] [id number] [address] [place] [phone] May, Bipolar I disorder, most rec ent episode (or current) mixed, moderate F31.62 [facility] [address] [facility] [id number] [address] [place] [phone] 14 May, 2016 [place] [id number] [facility] [id number] [address] [place] [id number] 08 May, 2016 Bipolar I disorder, most rec ent episode (or current) mixed, moderate F31.62 [facility] [address] [facility] [id number] [address] [place] [address] May, Diabetes E11.9 and Essential hypertension I10 [place] [address] [place] [id number] [address] [place] [address] Apr, Chronic pain G89.29 [place] [address] [place] [id number] [address] [place] [address] Apr, Bipolar I disorder, most rec ent episode (or current) mixed, moderate F31.62 [place] [address] [place] [id number] [address] [place] [phone] Apr, [place] [address] [place] [id number] [address] [place] [address] Apr, [place] [address] [place] [id number] [address] [place] [address] Mar, Chronic pain G89.29 ; Headac he, unspecified headache type R51 ; Neuropathy G62.9 ; Pain of right hip joint M25.551 and Essential hypertension I10 [place] [address] [place] [id number] [address] [place] [address] Mar, Chronic pain G89.29 [place] [address] [place] [id number] [address] [place] [address] Mar, Bipolar I disorder, most rec ent episode (or current) mixed, moderate F31.62 [place] [address] [place] [id number] [address] [place] [id number] Feb, Bipolar I disorder, most rec ent episode (or current) mixed, moderate F31.62 and Insomnia, unspecified type G47.00 [place] [address] [facility] [id number] [address] [place] [address] Feb, Chronic pain G89.29 [facility] [address] [id number] [address] [place] [id number] Feb, Bipolar I disorder, most rec ent episode (or current) mixed, moderate F31.62 [facility] [address] [id number] [address] [place] [address] January, Bipolar I disorder, most rec ent episode (or current) mixed, moderate F31.62 [facility] [address] [id number] [address] [place] [address] January, Chronic pain G89.29 [facility] [address] [id number] [address] [place] [address] January, Chronic pain G89.29 and Esse ntial hypertension I10 [facility] [address] [id number] [address] [place] [phone] January, Bipolar I disorder, most rec ent episode (or current) mixed, moderate F31.62 [facility] [address] [id number] [address] [place] [address] Dec, [facility] [address] [id number] [address] [place] [id number] Dec, [facility] [address] [id number] [address] [place] [address] Dec, [facility] [address] [id number] [address] [place] [address] Dec, [facility] [address] [id number] [address] [place] [address] Nov, Reactive airway disease J45. 909 [facility] [address] [id number] [address] [place] [phone] Nov, [facility] [address] [id number] [address] [place] [phone] Nov, [facility] [address] [facility] [id number] [address] [place] [address] Nov, [place] [address] [address] Nov, [place] [address] [address] Nov, Onychomycosis B35.1 ; Hammer toe M20.40 ; [place] or callus L84 and DM neuro manif type II E11.49 [place] [address] [address] Nov, Chronic pain G89.29 ; Leukoc ytosis D72.829 and Diabetes E11.9 [place] [address] [address] Nov, [place] [address] [address] Oct, Bronchitis J40 [place] [address] [id number] Oct, [place] [address] [address] Oct, [place] [address] [address] Oct, Mastoiditis, unspecified lat erality H70.90 and Type 2 diabetes mellitus with complication E11.8 [place] [address] [address] Sep, [place] [address] [address] Sep, Dysuria R30.0 ; Cough R05 ; Benign prostatic hyperplasia with lower urinary tract symptoms, unspecified morphology N40.1 ; Hypokalemia E87.6 and Eustachian tube dysfunction, unspecified laterality H69.80 [place] [address] [place] [id number] [address] [place] [address] Sep, Moderate mixed bipolar I dis order F31.62 [facility] [place] [address] [id number] [address] [place] [phone] Sep, Hypokalemia E87.6 [facility] [place] [address] [id number] [address] [place] [id number] Sep, [facility] [place] [address] [id number] [address] [place] [phone] Sep, Upper respiratory tract infe ction, unspecified type J06.9 [facility] [place] [address] [id number] [address] [place] [id number] Aug, [facility] [place] [address] [id number] [address] [place] [address] Aug, Dysuria R30.0 [facility] [place] [address] [id number] [address] [place] [phone] Aug, [facility] [place] [address] [id number] [address] [place] [address] Jul, [facility] [address] [id number] [address] [place] [id number] Jul, [facility] [place] [address] [id number] [address] [place] [id number] Jul, [facility] [place] [address] [id number] [address] [place] [address] Jul, [facility] [place] [address] [id number] [address] [place] [phone] Jun, [facility] [address] [id number] [address] [place] [phone] Jun, [facility] [place] [address] [id number] [address] [place] [phone] Jun, [facility] [place] [address] [id number] [address] [place] [address] May, [facility] [place] [address] [id number] [address] [place] [address] May, Bipolar I disorder, most rec ent episode (or current) mixed, moderate 296.62 [facility] [address] [id number] [address] [place] [phone] May, [facility] [address] [id number] [address] [place] [address] May, Bipolar I disorder, most rec ent episode (or current) mixed, moderate 296.62 and Major depressive disorder, recurrent episode, severe, specified as with psychotic behavior 296.34 [facility] [address] [id number] [address] [place] [address] May, Bipolar I disorder, most rec ent episode (or current) mixed, moderate 296.62 [facility] [address] [id number] [address] [place] [id number] May, [facility] [address] [facility] [id number] [address] [place] [phone] Apr, [facility] [address] [id number] [address] [place] [address] Apr, [facility] [address] [facility] [id number] [address] [place] [address] Apr, Unspecified disorder of kidn ey and ureter 593.9 and Diabetes mellitus type 2, uncontrolled 250.02 [facility] [address] [id number] [address] [place] [address] Apr, [facility] [address] [id number] [address] [place] [phone] Apr, [facility] [address] [id number] [address] [place] [phone] Apr, [facility] [address] [id number] [address] [place] [address] Apr, [facility] [address] [id number] [address] [place] [address] Apr, Diabetes mellitus type II, u ncontrolled 250.02 [facility] [address] [facility] [id number] [address] [place] [address] Apr, [facility] [address] [facility] [id number] [address] [place] [phone] Mar, [facility] [address] [facility] [id number] [address] [place] [address] Mar, [facility] [address] [facility] [id number] [address] [place] [phone] Mar, [facility] [address] [facility] [id number] [address] [place] [phone] Mar, Major depressive disorder, r ecurrent episode, severe, specified as with psychotic behavior 296.34 and Bipolar I disorder, most recent episode (or current) mixed, moderate 296.62 [facility] [address] [facility] [id number] [address] [place] [address] Mar, Diabetes 250.00 ; Anuria 788 .5 ; Nausea and vomiting 787.01 and Diarrhea 787.91 [facility] [address] [facility] [id number] [address] [place] [address] Mar, Diabetes 250.00 [facility] [address] [facility] [id number] [address] [place] [id number] Mar, [facility] [address] [facility] [id number] [address] [place] [address] Mar, Diabetes 250.00 [facility] [address] [facility] [id number] [address] [place] [address] Mar, [facility] [address] [facility] [id number] [address] [place] [address] Mar, [facility] [address] [facility] [id number] [address] [place] [address] Mar, [facility] [address] [facility] [id number] [address] [place] [address] Mar, [facility] [address] [address] Mar, Bipolar I disorder, most rec ent episode (or current) mixed, moderate 296.62 and Major depressive disorder, recurrent episode, severe, specified as with psychotic behavior 296.[address] [address] Mar, Magnesium deficiency 275.2 ; Hypokalemia 276.8 ; Nausea & vomiting 787.01 and Diabetes mellitus type 2, uncontrolled 250.[address] [address] Feb, [address] [address] Feb, Bipolar I disorder, most rec ent episode (or current) mixed, moderate 296.[address] [address] Feb, Nausea and vomiting 787.01 ; Left elbow pain 719.42 ; Anuria 788.5 and Diabetes 250.[address] [address] Feb, [address] [address] Feb, Hypopotassemia 276.8 and Hyp okalemia 276.[address] [address] Feb, Hypopotassemia 276.8 and Hyp okalemia 276.[address] [address] Feb, Seborrheic keratoses 702.[address] [address] Feb, Hypopotassemia 276.8 and Low magnesium levels 275.[address] [address] January, [facility] [address] [id number] [address] [place] [address] January, [facility] [place] [address] [id number] [address] [place] [address] January, [facility] [address] [id number] [address] [place] [address] January, Scalp lesion 709.9 [facility] [address] [id number] [address] [place] [address] January, [facility] [address] [id number] [address] [place] [phone] Dec, Tear of medial cartilage or meniscus of knee, current 836.0 and 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 [facility] [address] [id number] [address] [place] [address] Dec, [facility] [address] [id number] [address] [place] [address] Dec, [facility] [address] [id number] [address] [place] [phone] Dec, Squamous cell carcinoma, 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 [facility] [address] [id number] [address] [place] [address] Dec, [facility] [address] [id number] [address] [place] [id number] Dec, [facility] [address] [id number] [address] [place] [phone] Nov, [facility] [place] [address] [id number] [address] [place] [phone] Nov, [facility] [address] [id number] [address] [place] [address] Nov, [facility] [address] [id number] [address] [place] [phone] Nov, [facility] [address] [id number] [address] [place] [address], [place] [address] 09 Nov, 2014 [facility] [address] [id number] [address] [place] [address], [place] [address] Nov, 2014 [facility] [address] [id number] [address] [place] [address], [place] [address] Nov, 2014 [facility] [address] [id number] [address] [place] [address], [place] [address] Nov, 2014 [facility] [address] [id number] [address] [place] [address], [place] [address] Nov, 2014 [facility] [address] [id number] [address] [place] [address], [place] [address] Nov, 2014 [facility] [address] [id number] [address] [place] [address], [place] [address] Nov, 2014 [facility] [address] [id number] [address] [place] [address], [place] [address] Nov, 2014 [facility] [address] [id number] [address] [place] [address], [place] [address] Oct, 2014 [facility] [address] [id number] [address] [place] [address], [place] [address] Oct, 2014 [facility] [address] [id number] [address] [place] [address], [place] [address] Oct, 2014 [facility] [address] [id number] [address] [place] [address], [place] [address] Oct, 2014 [facility] [address] [id number] [address] [place] [address], [place] [address] Oct, 2014 [facility] [address] [id number] [address] [place] [address], [place] [address] Oct, 2014 [facility] [address] [id number] [address] [place] [id number] Oct, 2014 [facility] [address] [id number] [address] [place] [phone] Oct, [facility] [address] [id number] [address] [place] [address], [place] [address] Oct, [facility] [address] [id number] [address] [place] [address], [place] [address] Sep, [facility] [address] [id number] [address] [place] [address], [place] [address] Sep, [facility] [address] [id number] [address] [place] [address], [place] [address] Sep, [facility] [address] [id number] [address] [place] [address], [place] [address] Sep, [facility] [address] [id number] [address] [place] [address], [place] [address] Sep, [facility] [address] [id number] [address] [place] [address], [place] [address] Sep, [facility] [address] [id number] [address] [place] [address], [place] [address] Sep, [facility] [address] [id number] [address] [place] [address], [place] [address] Sep, [facility] [address] [id number] [address] [place] [address], [place] [address] Sep, [facility] [address] [id number] [address] [place] [address], [place] [address] Sep, [facility] [address] [id number] [address] [place] [id number] Sep, [facility] [address] [id number] [address] [place] [address], [place] [address] Sep, [facility] [address] [id number] [address] [place] [address] Sep, [facility] [address] [id number] [address] [place] [address], [place] [address] Sep, [facility] [address] [id number] [facility] [place] [address] Sep, [facility] [address] [id number] [address] [place] [address], [place] [address] Sep, [facility] [address] [id number] [address] [place] [address], [place] [address] Aug, [facility] [address] [id number] [address] [place] [address], [place] [address] Aug, [facility] [address] [id number] [address] [place] [address], [place] [address] Aug, [facility] [address] [id number] [address] [place] [address], [place] [address] Aug, [facility] [address] [id number] [address] [place] [address], [place] [address] Aug, [facility] [address] [id number] [address] [place] [address], [place] [address] Aug, [facility] [address] [id number] [address] [place] [address], [place] [address] Aug, [facility] [address] [id number] [address] [place] [address], [place] [address] Aug, [facility] [place] [address] [id number] [address] [place] [address], [place] [address] Aug, [facility] [address] [id number] [address] [place] [address], [place] [address] Aug, [facility] [place] [address] [id number] [address] [place] [address], [place] [address] Aug, [facility] [address] [place] [id number] Aug, [facility] [address] [id number] [address] [place] [address], [place] [address] Aug, [facility] [place] [address] [id number] [address] [place] [address], [place] [address] Aug, [facility] [address] [id number] [address] [place] [address], [place] [address] Aug, [facility] [address] [id number] [address] [place] [address], [place] [address] Aug, [facility] [address] [id number] [address] [place] [address], [place] [address] Aug, [facility] [address] [id number] [address] [place] [address], [place] [address] Aug, [facility] [address] [id number] [address] [place] [address], [place] [address] Aug, [facility] [address] [id number] [address] [place] [address], [place] [address] Aug, [facility] [address] [id number] [address] [place] [address], [place] [address] Aug, [facility] [address] [id number] [address] [place] [address], [place] [address] Aug, [facility] [address] [id number] [address] [place] [address], [place] [address] Aug, [facility] [address] [id number] [address] [place] [address], [place] [address] Aug, [facility] [address] [id number] [address] [place] [address], [place] [address] Aug, [facility] [address] [id number] [address] [place] [address], [place] [address] Aug, [facility] [address] [id number] [address] [place] [address], [place] [address] Aug, [facility] [address] [id number] [address] [place] [address], [place] [address] Aug, [facility] [address] [id number] [address] [place] [address], [place] [address] Aug, [facility] [address] [id number] [address] [place] [address], [place] [address] Aug, [facility] [address] [id number] [address] [place] [address], [place] [address] Jul, [facility] [address] [id number] [address] [place] [address], [place] [address] Jul, [facility] [address] [id number] [address] [place] [address], [place] [address] Jul, [facility] [address] [id number] [address] [place] [address], [place] [address] Jul, [facility] [address] [id number] [address] [place] [address], [place] [address] Jul, [facility] [address] [id number] [address] [place] [address], [place] [address] Jul, [facility] [address] [id number] [address] [place] [address], [place] [address] Jul, [facility] [address] [id number] [address] [place] [address], [place] [address] Jul, [facility] [address] [id number] [address] [place] [address], [place] [address] Jul, [facility] [address] [id number] [address] [place] [address], [place] [address] Jul, [facility] [address] [id number] [address] [place] [address], [place] [address] Jun, [facility] [address] [id number] [address] [place] [address], [place] [address] Jun, [facility] [address] [id number] [address] [place] [address], [place] [address] Jun, [facility] [address] [id number] [address] [place] [address], [place] [address] 16 Jun, 2014 [facility] [address] [id number] [address] [place] [address], [place] [address] 15 Jun, 2014 [facility] [address] [id number] [address] [place] [address], [place] [address] 15 Jun, 2014 [facility] [address] [id number] [address] [place] [address], [place] [address] Jun, [facility] [address] [id number] [address] [place] [address], [place] [address] Jun, [facility] [address] [id number] [address] [place] [address], [place] [address] Jun, [facility] [address] [id number] [address] [place] [address], [place] [address] Jun, [facility] [address] [id number] [address] [place] [address], [place] [address] 29 May, 2013 [facility] [address] [id number] [address] [place] [address], [place] [address] 29 Sep, 2013 [facility] [address] [id number] [address] [place] [address], [place] [address] 26 May, 2013 [facility] [address] [id number] [address] [place] [address], [place] [address] 26 Sep, 2013 [facility] [address] [id number] [address] [place] [address], [place] [address] 17 May, 2013 [facility] [address] [id number] [address] [place] [address], [place] [address] 17 Sep, 2013 [facility] [address] [id number] [address] [place] [address], [place] [address] 15 Sep, 2013 [facility] [address] [id number] [address] [place] [address], [place] [address] 15 Sep, 2013 [facility] [address] [id number] [address] [place] [address], [place] [address] 15 Sep, 2013 [facility] [address] [id number] [address] [place] [address], [place] [address] 15 Sep, 2013 [facility] [address] [id number] [address] [place] [address], [place] [address] May, [facility] [address] [id number] [facility] [place] [address] May, [facility] [address] [id number] [address] [place] [address], [place] [address] May, [facility] [address] [id number] [address] [place] [address], [place] [address] May, [facility] [address] [id number] [address] [place] [address], [place] [address] May, [facility] [address] [id number] [address] [place] [address], [place] [address] May, [facility] [address] [id number] [address] [place] [address], [place] [address] Apr, [facility] [address] [id number] [address] [place] [address], [place] [address] Apr, [facility] [address] [id number] [address] [place] [address], [place] [address] Apr, [facility] [address] [id number] [address] [place] [address], [place] [address] Apr, [facility] [address] [id number] [address] [place] [address], [place] [address] Apr, [facility] [address] [id number] [address] [place] [address], [place] [address] Apr, [facility] [address] [id number] [address] [place] [address], [place] [address] Apr, [facility] [address] [id number] [address] [place] [address], [place] [address] Apr, [facility] [address] [id number] [address] [place] [address], [place] [address] Apr, [facility] [address] [id number] [address] [place] [address], [place] [address] Apr, [facility] [address] [id number] [address] [place] [address], [place] [address] Apr, [facility] [address] [id number] [facility] [place] [address] Apr, [facility] [address] [id number] [address] [place] [address], [place] [address] Apr, [facility] [address] [id number] [address] [place] [address], [place] [address] Apr, [facility] [address] [id number] [address] [place] [address], [place] [address] Apr, [facility] [address] [id number] [address] [place] [address], [place] [address] Mar, [facility] [address] [id number] [address] [place] [address], [place] [address] Mar, [facility] [address] [id number] [address] [place] [address], [place] [address] Mar, [facility] [address] [id number] [address] [place] [address], [place] [address] Mar, [facility] [address] [id number] [address] [place] [address], [place] [address] Mar, [facility] [address] [id number] [address] [place] [address], [place] [address] Mar, [facility] [address] [id number] [address] [place] [address], [place] [address] Mar, [facility] [address] [id number] [address] [place] [address], [place] [address] Mar, [facility] [place] [address] [id number] [address] [place] [address], [place] [address] Mar, [facility] [place] [address] [id number] [address] [place] [address], [place] [address] Mar, [facility] [address] [id number] [address] [place] [address], [place] [address] Mar, [facility] [place] [address] [id number] [facility] [place] [address] Mar, 2013 [facility] [address] [id number] [facility] [place] [address] Mar, 2013 [facility] [place] [address] [id number] [facility] [place] [address] Mar, 2013 [facility] [address] [id number] [facility] [place] [address] Mar, 2013 [facility] [address] [id number] [facility] [place] [address] Mar, 2013 [facility] [address] [id number] [address] [place] [address], [place] [address] Mar, 2013 [facility] [address] [id number] [address] [place] [address], [place] [address] Mar, 2013 [facility] [address] [id number] [address] [place] [address], [place] [address] Feb, [facility] [address] [id number] [address] [place] [address], [place] [address] Feb, [facility] [address] [id number] [address] [place] [address], [place] [address] Feb, [facility] [address] [id number] [address] [place] [address], [place] [address] Feb, [facility] [address] [id number] [address] [place] [address], [place] [address] Feb, [facility] [address] [id number] [address] [place] [address], [place] [address] Feb, [facility] [place] [address] [id number] [address] [place] [address], [place] [address] Feb, [facility] [address] [id number] [address] [place] [address], [place] [address] Feb, [facility] [place] [address] [id number] [address] [place] [address], [place] [address] Feb, [facility] [address] [id number] [facility] [place] [address] Feb, [facility] [address] [id number] [facility] [place] [address] Feb, [facility] [address] [id number] [facility] [place] [address] Feb, [facility] [address] [id number] [address] [place] [address], [place] [address] Feb, [facility] [address] [id number] [facility] [place] [address] Feb, [facility] [address] [id number] [address] [place] [address], [place] [address] January, [facility] [address] [id number] [address] [place] [address], [place] [address] January, [facility] [address] [id number] [address] [place] [address], [place] [address] January, [facility] [address] [id number] [address] [place] [address], [place] [address] January, [facility] [address] [id number] [address] [place] [address], [place] [address] January, [facility] [address] [id number] [address] [place] [address], [place] [address] January, [facility] [address] [id number] [address] [place] [address], [place] [address] January, [facility] [address] [id number] [address] [place] [address], [place] [address] January, [facility] [address] [id number] [address] [place] [address], [place] [address] January, [facility] [address] [id number] [facility] [place] [address] January, [facility] [place] [address] [id number] [address] [address] January, [facility] [address] [id number] [address] [place] [address], [place] [address] January, [facility] [address] [id number] [address] [place] [address], [place] [address] January, [facility] [address] [id number] [address] [place] [address], [place] [address] January, [facility] [address] [id number] [address] [place] [address], [place] [address] Dec, [facility] [address] [id number] [address] [place] [address], [place] [address] Dec, [facility] [address] [id number] [address] [place] [address], [place] [address] Dec, [facility] [address] [id number] [address] [place] [address], [place] [address] Dec, [facility] [address] [id number] [address] [place] [address], [place] [address] Dec, [facility] [address] [id number] [address] [place] [address], [place] [address] Dec, [facility] [address] [id number] [address] [place] [address], [place] [address] Dec, [facility] [address] [id number] [address] [place] [address], [place] [address] Dec, [facility] [address] [id number] [address] [place] [address], [place] [address] Dec, [facility] [address] [id number] [address] [place] [address], [place] [address] Dec, [facility] [address] [id number] [address] [place] [address], [place] [address] Nov, [facility] [address] [id number] [address] [place] [address], [place] [address] Nov, [facility] [address] [id number] [facility] [place] [address] Nov, [facility] [address] [id number] [address] [place] [address], [place] [address] Nov, [facility] [address] [id number] [facility] [place] [address] Nov, [facility] [address] [id number] [address] [place] [address], [place] [address] Nov, [facility] [address] [id number] [address] [place] [address], [place] [address] Nov, [facility] [address] [id number] [address] [place] [address], [place] [address] Nov, [facility] [address] [id number] [address] [place] [address], [place] [address] Nov, [facility] [address] [id number] [address] [place] [address], [place] [address] Nov, [facility] [address] [id number] [address] [place] [address], [place] [address] Oct, [facility] [address] [id number] [address] [place] [address], [place] [address] Oct, [facility] [address] [id number] [address] [place] [address], [place] [address] Oct, [facility] [address] [id number] [address] [place] [address], [place] [address] Oct, [facility] [address] [id number] [address] [place] [address], [place] [address] Oct, [facility] [address] [id number] [address] [place] [address], [place] [address] Oct, [facility] [address] [id number] [address] [place] [address], [place] [address] 14 Oct, 2013 [facility] [address] [id number] [address] [place] [address], [place] [address] 14 Oct, 2013 [facility] [address] [id number] [address] [place] [address], [place] [address] 05 Oct, 2013 [facility] [address] [id number] [address] [place] [address], [place] [address] 05 Oct, 2013 [facility] [address] [id number] [address] [place] [address], [place] [address] Oct, [facility] [address] [id number] [address] [place] [address], [place] [address] Oct, [facility] [address] [id number] [address] [place] [address], [place] [address] Oct, [facility] [address] [id number] [address] [place] [address], [place] [address] Oct, [facility] [address] [id number] [address] [place] [address], [place] [address] Sep, [facility] [address] [id number] [address] [place] [address], [place] [address] Sep, [facility] [address] [id number] [address] [place] [address], [place] [address] Sep, [facility] [address] [id number] [address] [place] [address], [place] [address] 15 Sep, 2013 [facility] [address] [id number] [address] [place] [address], [place] [address] Sep, [facility] [address] [id number] [address] [place] [address], [place] [address] Sep, [facility] [address] [id number] [address] [place] [address], [place] [address] Sep, [facility] [address] [id number] [address] [place] [address], [place] [address] Sep, [facility] [address] [id number] [address] [place] [address], [place] [address] Sep, [facility] [address] [id number] [address] [place] [address], [place] [address] 08 Sep, 2013 [facility] [address] [id number] [address] [place] [address], [place] [address] Aug, [facility] [address] [id number] [address] [place] [address], [place] [address] Aug, [facility] [address] [id number] [address] [place] [address], [place] [address] Jul, [facility] [address] [id number] [address] [place] [address], [place] [address] Jul, [facility] [address] [id number] [address] [place] [address], [place] [address] Jul, [facility] [address] [id number] [address] [place] [address], [place] [address] Jul, [facility] [address] [id number] [address] [place] [address], [place] [address] Jul, [facility] [address] [id number] [address] [place] [address], [place] [address] Jul, [facility] [address] [id number] [address] [place] [address], [place] [address] Jul, [facility] [address] [id number] [address] [place] [address], [place] [address] Jul, [facility] [address] [id number] [address] [place] [id number] Jul, [facility] [address] [id number] [address] [place] [address], [place] [address] Jul, [facility] [address] [id number] [address] [place] [address], [place] [address] Jul, [facility] [address] [id number] [address] [place] [address], [place] [address] Jul, [facility] [address] [id number] [address] [place] [address], [place] [address] 06 Jul, 2012 [facility] [address] [id number] [address] [place] [address], [place] [address] 05 Jul, 2012 [facility] [address] [id number] [address] [place] [address], [place] [address] Jul, 2012 [facility] [address] [id number] [address] [place] [address], [place] [address] Jul, 2012 [facility] [address] [id number] [address] [place] [address], [place] [address] Jul, 2012 [facility] [address] [id number] [address] [place] [address], [place] [address] Jul, 2012 [facility] [address] [id number] [address] [place] [address], [place] [address] Jul, 2012 [facility] [address] [id number] [address] [place] [address], [place] [address] 16 Jun, 2012 [facility] [address] [id number] [address] [place] [address], [place] [address] 16 Jun, 2012 [facility] [address] [id number] [address] [place] [address], [place] [address] 16 Jun, 2012 [facility] [address] [id number] [address] [place] [address], [place] [address] 16 Jun, 2012 [facility] [address] [id number] [address] [place] [address], [place] [address] 16 Jun, 2012 [facility] [address] [id number] [address] [place] [id number] 16 Jun, 2012 [facility] [address] [id number] [address] [place] [address], [place] [address] 10 Jun, 2012 [facility] [address] [id number] [address] [place] [address], [place] [address] 10 Jun, 2012 [facility] [address] [id number] [address] [place] [id number] 09 Jun2012 [facility] [address] [id number] [address] [place] [address], [place] [address] Jun, [facility] [address] [id number] [address] [place] [address], [place] [address] Jun, [facility] [facility] [address] [id number] [address] [place] [address], [place] [address] May, 2012 [facility] [address] [id number] [address] [place] [address], [place] [address] 25 May, 2012 [facility] [address] [id number] [address] [place] [address], [place] [address] 19 May, 2013 [facility] [address] [id number] [address] [place] [address], [place] [address] 17 May, 2013 [facility] [address] [id number] [address] [place] [address], [place] [address] May, [facility] [address] [id number] [address] [place] [address], [place] [address] May, [facility] [address] [id number] [address] [place] [address], [place] [address] May, [facility] [address] [id number] [address] [place] [address], [place] [address] 05 May, 2013 [facility] [address] [id number] [address] [place] [address], [place] [address] Apr, [facility] [address] [id number] [address] [place] [address], [place] [address] Apr, [facility] [address] [id number] [address] [place] [address], [place] [address] Apr, [facility] [address] [id number] [address] [place] [address], [place] [address] Apr, [facility] [address] [id number] [address] [place] [address], [place] [address] Apr, [facility] [address] [id number] [address] [place] [address], [place] [address] Mar, [facility] [address] [id number] [address] [place] [address], [place] [address] Mar, [facility] [address] [id number] [address] [place] [address], [place] [address] Mar, [facility] [address] [id number] [address] [place] [address], [place] [address] Mar, [facility] [address] [id number] [address] [place] [address], [place] [address] Mar, [facility] [address] [id number] [address] [place] [address], [place] [address] Mar, [facility] [address] [id number] [address] [place] [address], [place] [address] Mar, [facility] [address] [id number] [address] [place] [address], [place] [address] Mar, [facility] [address] [id number] [address] [place] [address], [place] [address] Feb, [facility] [address] [id number] [address] [place] [address], [place] [address] Feb, [facility] [address] [id number] [address] [place] [address], [place] [address] January, [facility] [place] [address] [id number] [address] [place] [address], [place] [address] January, [facility] [address] [id number] [address] [place] [address], [place] [address] Dec, [facility] [address] [id number] [address] [place] [address], [place] [address] Dec, [facility] [address] [id number] [address] [place] [address], [place] [address] Nov, [facility] [address] [id number] [address] [place] [address], [place] [address] Nov, [facility] [address] [id number] [address] [place] [address], [place] [address] Nov, [facility] [place] [address] [id number] [address] [place] [address], [place] [address] Nov, [facility] [address] [id number] [address] [place] [address], [place] [address] Oct, [facility] [address] [id number] [address] [place] [address], [place] [address] Oct, [facility] [address] [id number] [address] [place] [address], [place] [address] Oct, [facility] [address] [id number] [address] [place] [address], [place] [address] Oct, [facility] [address] [id number] [address] [place] [address], [place] [address] 16 Oct, 2012 [facility] [address] [id number] [address] [place] [address], [place] [address] 14 Oct, 2012 [facility] [address] [id number] [address] [place] [address], [place] [address] 08 Oct, 2012 [facility] [address] [id number] [address] [place] [address], [place] [address] 07 Oct, 2012 [facility] [address] [id number] [address] [place] [address], [place] [address] Oct, [facility] [address] [id number] [address] [place] [address], [place] [address] Sep, [facility] [address] [id number] [address] [place] [address], [place] [address] Sep, [facility] [address] [id number] [address] [place] [address], [place] [address] Sep, [facility] [address] [id number] [address] [place] [address], [place] [address] Sep, [facility] [address] [id number] [address] [place] [address], [place] [address] 17 Sep, 2012 [facility] [address] [id number] [address] [place] [address], [place] [address] 10 Sep, 2012 [facility] [address] [id number] [address] [place] [address], [place] [address] 09 Sep, 2012 [facility] [address] [id number] [address] [place] [address], [place] [address] Sep, [facility] [address] [id number] [address] [place] [address], [place] [address] Aug, [facility] [address] [id number] [address] [place] [address], [place] [address] Aug, [facility] [address] [id number] [address] [place] [address], [place] [address] Aug, [facility] [address] [id number] [address] [place] [address], [place] [address] Aug, [facility] [address] [id number] [address] [place] [address], [place] [address] Aug, [facility] [address] [id number] [address] [place] [address], [place] [address] Aug, [facility] [address] [id number] [address] [place] [address], [place] [address] Aug, [facility] [address] [id number] [address] [place] [address], [place] [address] Aug, [facility] [address] [id number] [address] [place] [address], [place] [address] Jul, [facility] [address] [id number] [address] [place] [address], [place] [address] Jul, [facility] [address] [id number] [address] [place] [address], [place] [address] Jul, [facility] [address] [id number] [address] [place] [address], [place] [address] Jul, [facility] [address] [id number] [address] [place] [address], [place] [address] Jul, [facility] [address] [id number] [address] [place] [address], [place] [address] Jul, [facility] [address] [id number] [address] [place] [address], [place] [address] Jun, [facility] [address] [id number] [address] [place] [address], [place] [address] Jun, [facility] [address] [id number] [address] [place] [address], [place] [address] Jun, [facility] [address] [id number] [address] [place] [address], [place] [address] Jun, [facility] [address] [id number] [address] [place] [address], [place] [address] Jun, [facility] [address] [id number] [address] [place] [address], [place] [address] Jun, [facility] [address] [id number] [address] [place] [address], [place] [address] Jun, [facility] [address] [id number] [address] [place] [address], [place] [address] Jun, [facility] [address] [id number] [address] [place] [address], [place] [address] 10 Jun, 2012 [facility] [address] [id number] [address] [place] [address], [place] [address] 26 May, 2012 [facility] [address] [id number] [address] [place] [address], [place] [address] 24 May, 2012 [facility] [address] [id number] [address] [place] [address], [place] [address] 18 May, 2012 [facility] [address] [id number] [address] [place] [address], [place] [address] Apr, [facility] [address] [id number] [address] [place] [address], [place] [address] Apr, [facility] [address] [id number] [address] [place] [address], [place] [address] Apr, [facility] [address] [id number] [address] [place] [address], [place] [address] Apr, [facility] [address] [id number] [address] [place] [address], [place] [address] Apr, [facility] [address] [id number] [address] [place] [address], [place] [address] Apr, [facility] [address] [id number] [address] [place] [address], [place] [address] Mar, [facility] [address] [id number] [address] [place] [address], [place] [address] Mar, [facility] [address] [id number] [address] [place] [address], [place] [address] Mar, [facility] [address] [id number] [address] [place] [address], [place] [address] Mar, [facility] [address] [id number] [address] [place] [address], [place] [address] Feb, [facility] [address] [id number] [address] [place] [address], [place] [address] Feb, [facility] [address] [id number] [address] [place] [address], [place] [address] Feb, [facility] [address] [id number] [address] [place] [address], [place] [address] Feb, [facility] [address] [id number] [address] [place] [address], [place] [address] Feb, [facility] [address] [id number] [address] [place] [address], [place] [address] January, [facility] [address] [id number] [address] [place] [address], [place] [address] January, [facility] [address] [id number] [address] [place] [address], [place] [address] January, [facility] [address] [id number] [address] [place] [address], [place] [address] January, [facility] [address] [id number] [address] [place] [address], [place] [address] January, [facility] [address] [id number] [address] [place] [address], [place] [address] January, [facility] [address] [id number] [address] [place] [address], [place] [address] Dec, [facility] [address] [id number] [address] [place] [address], [place] [address] Dec, [facility] [address] [id number] [address] [place] [address], [place] [address] Dec, [facility] [address] [id number] [address] [place] [address], [place] [address] Dec, [facility] [address] [id number] [address] [place] [address], [place] [address] Dec, [facility] [address] [id number] [address] [place] [address], [place] [address] Nov, [facility] [address] [id number] [address] [place] [address], [place] [address] Nov, [facility] [address] [id number] [address] [place] [address], [place] [address] Nov, [facility] [address] [id number] [address] [place] [address], [place] [address] Nov, [facility] [address] [id number] [address] [place] [address], [place] [address] Oct, [facility] [address] [id number] [address] [place] [address], [place] [address] Oct, [facility] [address] [id number] [address] [place] [address], [place] [address] Oct, [facility] [address] [id number] [address] [place] [address], [place] [address] Oct, [facility] [address] [id number] [address] [place] [address], [place] [address] Oct, [facility] [address] [id number] [address] [place] [address], [place] [address] Sep, [facility] [address] [id number] [address] [place] [address], [place] [address] Sep, [facility] [address] [id number] [address] [place] [address], [place] [address] Sep, [facility] [address] [id number] [address] [place] [address], [place] [address] Sep, [facility] [address] [id number] [address] [place] [address], [place] [address] Sep, [facility] [place] [address] [id number] [address] [place] [address], [place] [address] Sep, [facility] [address] [id number] [address] [place] [address], [place] [address] Aug, [facility] [address] [id number] [address] [place] [address], [place] [address] Aug, [facility] [address] [id number] [address] [place] [address], [place] [address] Aug, [facility] [place] [address] [id number] [address] [place] [address], [place] [address] Jul, [facility] [address] [id number] [address] [place] [address], [place] [address] Jul, [facility] [address] [id number] [address] [place] [address], [place] [address] Jul, [facility] [address] [id number] [address] [place] [address], [place] [address] Jul, [facility] [address] [id number] [address] [place] [address], [place] [address] 31 Jun, 2011 [facility] [address] [id number] [address] [place] [address], [place] [address] 31 Jun, 2011 [facility] [address] [id number] [address] [place] [address], [place] [address] 18 Jun, 2011 [facility] [address] [id number] [address] [place] [address], [place] [address] 10 Jun, 2011 [facility] [address] [id number] [address] [place] [address], [place] [address] 10 Jun, 2011 [facility] [address] [id number] [address] [place] [address], [place] [address] 10 Jun, 2011 [facility] [address] [id number] [address] [place] [address], [place] [address] 11 Mar, 2011 [facility] [address] [id number] [address] [place] [address], [place] [address] 18 Dec, 2010 [facility] [address] [id number] [address] [place] [address], [place] [address] Dec, [facility] [address] [id number] [address] [place] [address], [place] [address] Nov, [facility] [address] [id number] [address] [place] [address], [place] [address] 16 Nov, 2010 [facility] [address] [id number] [address] [place] [address], [place] [address] Sep, [facility] [address] [id number] [address] [place] [address], [place] [address] Aug, [facility] [address] [id number] [address] [place] [address], [place] [address] Aug, [facility] [address] [id number] [address] [place] [address], [place] [address] Aug, [facility] [address] [id number] [address] [place] [address], [place] [address] Aug, [facility] [address] [id number] [address] [place] [address], [place] [address] 27 Aug, 2010 [facility] [address] [id number] [address] [place] [address], [place] [address] 14 Aug, 2010 [facility] [address] [id number] [address] [place] [address], [place] [address] 08 Aug, 2010 [facility] [address] [id number] [address] [place] [address], [place] [address] 08 Aug, 2010 [facility] [address] [id number] [address] [place] [address], [place] [address] 07 Aug, 2010 [facility] [address] [id number] [address] [place] [address], [place] [address] 06 Aug, 2010 [facility] [address] [id number] [address] [place] [address], [place] [address] 06 Aug, 2010 [facility] [address] [id number] [address] [place] [address], [place] [address] Aug, [facility] [address] [id number] [address] [place] [address], [place] [address] 30 Jul, 2010 [facility] [address] [id number] [address] [place] [address], [place] [address] 30 Jul, 2010 [facility] [address] [id number] [address] [place] [address], [place] [address] 30 Jul, 2010 [facility] [address] [id number] [address] [place] [address], [place] [address] 17 Jul, 2010 [facility] [address] [id number] [address] [place] [address], [place] [id number] 08 Jul, 2010 [facility] [address] [id number] [address] [place] [address], [place] [address] Jul, [facility] [address] [id number] [address] [place] [address], [place] [address] 24 Jun, 2010 [facility] [address] [id number] [address] [place] [address], [place] [address] Jun, [facility] [address] [id number] [address] [place] [address], [place] [phone] 19 Jun, 2010 [facility] [address] [id number] [address] [place] [address], [place] [address] 13 Jun, 2010 [facility] [address] [id number] [address] [place] [address], [place] [address] 16 Apr, 2010 [facility] [address] [id number] [address] [place] [address], [place] [address] Mar, [facility] [address] [id number] [address] [place] [address], [place] [address] Feb, [facility] [address] [id number] [address] [place] [address], [place] [address] January, [facility] [address] [id number] [address] [place] [address], [place] [address] 15 Dec, 2009 [facility] [address] [id number] [address] [place] [phone] Nov, [facility] [address] [id number] [address] [place] [address], [place] [address] Aug, [facility] [address] [id number] [address] [place] [phone] Aug, [facility] [address] [id number] [address] [place] [phone] Aug, [facility] [address] [id number] [address] [place] [phone] Jul, [facility] [address] [id number] [address] [place] [phone] Jul, [facility] [address] [id number] [address] [place] [phone] Jul, [facility] [address] [id number] [address] [place] [phone] 30 Jun, 2009 [facility] [address] [id number] [address] [place] [phone] Jun, [facility] [address] [id number] [address] [place] [phone] Jun, [facility] [address] [id number] [address] [place] [phone] Jun, [facility] [address] [facility] [id number] [address] [place] [phone] Jun, [facility] [address] [facility] [id number] [address] [place] [phone] Jun, [facility] [address] [facility] [id number] [address] [place] [phone] Apr, [facility] [address] [facility] [id number] [address] [place] [phone] Apr, [facility] [address] [facility] [id number] [address] [place] [phone] Feb, [facility] [address] [facility] [id number] [address] [place] [phone] January, [facility] [address] [facility] [id number] [address] [place] [phone] Dec, IMMUNIZATIONS No Known Immunizations SOCIAL HISTORY [...] Medical History skin cancer-basal cell R uatsdin (removed ) Medical History Arthritis Medical History [...] History inability to urinate 09/16/15 Hospitalization History [facility] inpatient mental health ea rly 2000's Hospitalization History hyperkalemia 10/2017 Hospitalization History fluid in lung
--- OUTSIDE RECORDS SUMMARY | 2020-03-01 17:12 | XMS REPORT ---
Author Author Michele WASHBURN Organization [facility] Address [address] [place] [address] Care Team Providers Care Imaging Aide Name Role Phone NOEMI WASHBURN Unavailable PROBLEMS Type Condition ICD9-CM Code [id number] Code Onset Dates Condition S tatus SNOMED Code Problem Cough R05 Active 38464093 Problem Benign prostatic hyperplasia with lower urinary tract symptoms, unspecified morphology N40.1 Active 88182 6007 Problem Eustachian tube dysfunction, unspecified laterality H69.80 Active 08191656 Problem Chronic pain G89.29 Active 1054336 1 Problem DM neuro manif type II E11.49 Active 25888058 Problem Diabetes E11.9 Active 20118714 Problem Leukocytosis D72.829 Active 2956421 06 Problem Falling R29.6 Active 287332705 Problem Pressure ulcer of other site, stage 3 L89.893 Active 134557348 Problem 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 Active 263402369 Problem Eye exam abnormal R93.8 Active 16 8095388 Problem Dysuria R30.0 Active 99364175 Problem Hypokalemia E87.6 Active 24426944 Problem Morbid obesity E66.01 Active 47714 6002 Problem Anxiety F41.9 Active 63054827 Problem Diabetic polyneuropathy associated with type 2 d iabetes mellitus E11.42 Active 27977788 Problem Essential hypertension I10 Active 23259465 Problem Bilateral primary osteoarthritis of knee M17.0 Active 873950558 Problem Polyneuropathy associated with underlying disease G63 Active 897902130 Problem Anemia of chronic illness D63.8 Acti ve 841744706 Problem Lymphocytosis D72.820 Active 872775 09 Problem Retinal edema H35.81 Active 978257 6 Problem Chronic lymphocytic leukemia C91.10 A ctive 47758334 Problem Bipolar disorder, in partial remission, most rec ent episode depressed F31.75 Active 87648545 Problem Pure hypercholesterolemia E78.00 Acti ve 517757519 Problem Primary osteoarthritis of right knee M17.11 Active 408699753092579 Problem Bipolar disorder F31.9 Active 137 74364 Problem Bipolar I disorder, most recent episode (or curr ent) mixed, moderate F31.62 Active 69180462 Problem Chronic diastolic (congestive) heart failure I50.3 2 Active 856873750 Problem Reactive airway disease J45.909 Active 790408938367 Problem Insomnia, unspecified type G47.00 Act sharon 363882075 Problem Other chronic pain G89.29 Active 8 5833295 Problem Other iron deficiency anemia D50.8 A ctive 14112960 Problem Mild cognitive impairment G31.84 Acti ve 302963802 Problem Skin cancer C44.90 Active 22893349 7 ALLERGIES No Information ENCOUNTERS Encounter Location Date Diagnosis [facility] [address] [facility] [id number] [address] [place] [address] Jun, [facility] [address] [place] [id number] [place] [address] Jun, [facility] [address] [place] [id number] [address] [place] [address] Jun, [facility] [address] [facility] [id number] [address] [place] [address] Jun, [facility] [address] [place] [id number] [address] [place] [address] May, Bipolar disorder, in partial remission, most recent episode depressed F31.75 and Mild cognitive impairment G31.84 [facility] [address] [facility] [id number] [address] [place] [address] May, [facility] [address] [facility] [id number] [address] [place] [address] Apr, Chronic pain G89.29 and Bipo lar disorder F31.9 [facility] [address] [facility] [id number] [address] [place] [address] Mar, Bipolar disorder F31.9 and C hronic pain G89.29 [facility] [address] [facility] [id number] [address] [place] [address] Feb, Bipolar disorder F31.9 [facility] [address] [id number] [address] [place] [address] Feb, Cellulitis of right upper ex tremity L03.113 and Skin abrasion T14.8XXA [facility] [address] [id number] [address] [place] [address] Feb, Bipolar disorder, in partial remission, most recent episode depressed F31.75 and Mild cognitive impairment G31.84 [place] [address] [id number] [address] [place] [address] Feb, Chronic pain G89.29 [place] [address] [facility] [id number] [address] [place] [address] Feb, Bipolar disorder, in partial remission, most recent episode depressed F31.75 and Mild cognitive impairment G31.84 [place] [address] [facility] [id number] [address] [place] [address] January, Bipolar disorder, in partial remission, most recent episode depressed F31.75 and Mild cognitive impairment G31.84 [place] [address] [id number] [address] [place] [address] January, Chronic pain G89.29 and Bipo lar disorder F31.9 [place] [address] [facility] [id number] [address] [place] [address] January, Bipolar disorder, in partial remission, most recent episode depressed F31.75 and Mild cognitive impairment G31.84 [place] [address] [id number] [address] [place] [address] Dec, [place] [address] [facility] [id number] [address] [place] [address] Dec, Chronic pain G89.29 and Bipo lar disorder F31.9 [facility] [address] [facility] [id number] [address] [place] [address] Dec, Edema of both lower extremit ies R60.0 [place] [address] [place] [id number] [address] [place] [address] Dec, Bipolar disorder F31.9 [place] [address] [place] [id number] [address] [place] [address] Dec, Bipolar disorder, in partial remission, most recent episode depressed F31.75 and Mild cognitive impairment G31.84 [place] [id number] [place] [address] Nov, [place] [address] [place] [id number] [address] [place] [address] Nov, Chronic pain G89.[address] [address] Nov, Bipolar disorder, in partial remission, most recent episode depressed F31.75 and Mild cognitive impairment G31.84 [place] [address] [place] [id number] [address] [place] [address] Nov, Bipolar disorder F31.9 [place] [address] [place] [id number] [address] [place] [address] 04 Nov, 2018 Encounter for Medicare annua [...] unspecified morphology N40.1 and Essential hypertension I10 [id number] [place] [address] Oct, Chronic pain G89.29 [place] [address] [place] [id number] [address] [place] [address] Oct, Diabetes E11.9 [place] [address] [place] [address] Oct, Bipolar I disorder, most rec ent episode (or current) mixed, moderate F31.62 and Mild cognitive impairment G31.84 [place] [address] [place] [id number] [address] [place] [address] Oct, Bipolar I disorder, most rec ent episode (or current) mixed, moderate F31.62 and Mild cognitive impairment G31.84 [place] [address] [place] [id number] [place] [address] Sep, Bipolar I disorder, most rec ent episode (or current) mixed, moderate F31.62 and Mild cognitive impairment G31.84 [place] [address] [place] [id number] [address] [place] [address] Sep, [place] [address] [place] [id number] [place] [address] Sep, Diabetes E11.9 ; Hypoxia R09 .02 ; Hyperglycemia R73.9 ; Therapeutic drug monitoring Z51.81 ; BMI 50.0-59.9, adult Z68.43 and Skin cancer C44.90 [place] [address] [place] [id number] [address] [place] [address] Sep, Chronic pain G89.29 [place] [address] [place] [id number] [address] [place] [address] Sep, Bipolar I disorder, most rec ent episode (or current) mixed, moderate F31.62 [place] [address] [place] [id number] [address] [place] [address] Sep, [place] [address] [place] [id number] [address] [place] [address] Sep, [place] [address] [place] [id number] [address] [place] [address] Aug, Chronic pain G89.29 [place] [address] [place] [id number] [address] [place] [address] Aug, Bipolar I disorder, most rec ent episode (or current) mixed, moderate F31.62 [facility] [address] [id number] [address] [place] [address] Aug, Bipolar I disorder, most rec ent episode (or current) mixed, moderate F31.62 and Mild cognitive impairment G31.84 [facility] [address] [id number] [address] [place] [address] Jul, [facility] [address] [id number] [address] [place] [address] Jul, Chronic pain G89.29 [facility] [address] [id number] [address] [place] [address] Jul, Bipolar I disorder, most rec ent episode (or current) mixed, moderate F31.62 and Mild cognitive impairment G31.84 [facility] [address] [id number] [address] [place] [address] Jul, Bipolar I disorder, most rec ent episode (or current) mixed, moderate F31.62 and MCI (mild cognitive impairment) G31.84 [facility] [address] [id number] [address] [place] [address] Jul, [facility] [address] [id number] [address] [place] [address] Jul, [facility] [address] [id number] [address] [place] [address] Jul, Bipolar I disorder, most rec ent episode (or current) mixed, moderate F31.62 [facility] [address] [id number] [address] [place] [address] Jul, Chronic pain G89.29 [facility] [address] [id number] [address] [place] [address] Jun, Bipolar I disorder, most rec ent episode (or current) mixed, moderate F31.62 [facility] [address] [id number] [address] [place] [address] Jun, Pre-procedure lab exam Z01.8 12 [facility] [address] [id number] [address] [place] [address] Jun, [facility] [address] [id number] [place] [id number] Jun, [facility] [address] [facility] [id number] [address] [place] [address] Jun, [facility] [address] [facility] [id number] [address] [place] [address] Jun, Forgetfulness R68.89 ; Pre-s yncope R55 ; Localized edema R60.0 ; Other iron deficiency anemia D50.8 and BMI 50.0-59.9, adult Z68.43 [facility] [address] [facility] [id number] [address] [place] [address] Jun, Chronic pain G89.29 [facility] [address] [facility] [id number] [address] [place] [address] Jun, Chronic pain G89.29 [facility] [address] [facility] [id number] [address] [place] [address] Jun, Bipolar I disorder, most rec ent episode (or current) mixed, moderate F31.62 [facility] [address] [facility] [id number] [address] [place] [address] May, Chronic pain G89.29 [facility] [address] [facility] [id number] [address] [place] [address] Apr, [facility] [address] [facility] [id number] [address] [place] [address] Apr, Chronic pain G89.29 [facility] [address] [facility] [id number] [address] [place] [address] Apr, Primary osteoarthritis of ri ght knee M17.11 [facility] [address] [facility] [id number] [address] [place] [address] Mar, [place] [address] [address] Mar, BMI 50.0-59.9, adult Z68.43 and Bipolar disorder, in partial remission, most recent episode depressed F31.75 [place] [address] [address] Mar, Diabetes E11.9 ; Pure hyperc holesterolemia E78.00 ; Essential hypertension I10 ; Nausea with vomiting, unspecified R11.2 and Headache, unspecified headache type R51 [place] [address] [address] Mar, Bipolar I disorder, most rec ent episode (or current) mixed, moderate F31.[address] [address] Mar, Bipolar I disorder, most rec ent episode (or current) mixed, moderate F31.62 [place] [address] [address] Mar, Chronic pain G89.29 [place] [address] [address] Mar, Bipolar I disorder, most rec ent episode (or current) mixed, moderate F31.62 [place] [address] [address] 18 Feb, 2018 Bipolar I disorder, most rec ent episode (or current) mixed, moderate F31.62 [place] [address] [address] 14 Feb, 2018 Chronic pain G89.[address] [address] 06 Feb, 2018 Decubitus ulcer of right josselin t, stage 3 L89.893 and BMI 50.0-59.9, adult Z68.[address] [address] Feb, Bipolar I disorder, most rec ent episode (or current) mixed, moderate F31.62 [place] [address] [place] [id number] [address] [place] [address] Feb, [facility] [address] [place] [id number] [place] [address] January, [place] [address] [place] [id number] [place] [address] January, Chronic pain G89.29 [place] [address] [facility] [id number] [address] [place] [address] January, Bipolar I disorder, most rec ent episode (or current) mixed, moderate F31.62 [place] [address] [place] [id number] [place] [address] January, Bipolar I disorder, most rec ent episode (or current) mixed, moderate F31.62 [place] [address] [place] [id number] [place] [address] Dec, Bipolar I disorder, most rec ent episode (or current) mixed, moderate F31.62 and BMI 50.0-59.9, adult Z68.43 [place] [address] [place] [id number] [place] [address] Dec, Bipolar I disorder, most rec ent episode (or current) mixed, moderate F31.62 [place] [address] [place] [id number] [place] [address] Dec, Chronic pain G89.29 [place] [address] [place] [id number] [place] [address] Dec, DM neuro manif type II E11.4 9 ; Right flank pain R10.9 ; 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 ; Encounter for medication monitoring Z51.81 and BMI 50.0-59.9, adult Z68.43 [place] [address] [address] Dec, Bipolar I disorder, most rec ent episode (or current) mixed, moderate F31.62 [facility] [address] [id number] [address] [place] [address] Nov, Bipolar I disorder, most rec ent episode (or current) mixed, moderate F31.62 [facility] [address] [facility] [id number] [address] [place] [address] Nov, Chronic pain G89.29 [facility] [address] [facility] [id number] [address] [place] [address] Nov, Bipolar I disorder, most rec ent episode (or current) mixed, moderate F31.62 [facility] [address] [facility] [id number] [address] [place] [address] Nov, Hypokalemia E87.6 [facility] [address] [facility] [id number] [address] [place] [address] Nov, Bipolar I disorder, most rec ent episode (or current) mixed, moderate F31.62 [facility] [address] [facility] [id number] [address] [place] [address] Oct, Chronic pain G89.29 [facility] [address] [facility] [id number] [address] [place] [address] Oct, BMI 50.0-59.9, adult Z68.43 and Bipolar I disorder, most recent episode (or current) mixed, moderate F31.62 [facility] [address] [facility] [id number] [address] [place] [address] Oct, Bipolar I disorder, most rec ent episode (or current) mixed, moderate F31.62 [facility] [address] [facility] [id number] [address] [place] [address] Oct, [facility] [address] [facility] [id number] [address] [place] [address] Oct, Hypokalemia E87.6 [facility] [address] [facility] [id number] [address] [place] [address] Oct, DM neuro manif type II E11.4 9 [facility] [address] [facility] [id number] [address] [place] [address] Oct, Bipolar I disorder, most rec ent episode (or current) mixed, moderate F31.62 [facility] [address] [facility] [id number] [address] [place] [address] Oct, Bipolar I disorder, most rec ent episode (or current) mixed, moderate F31.62 [facility] [address] [facility] [id number] [address] [place] [address] 14 Oct, 2017 Hyperkalemia E87.5 ; Falling R29.6 ; BMI 50.0-59.9, adult Z68.43 and Acute left ankle pain M25.572 [place] [address] [place] [id number] [place] [address] Oct, DM neuro manif type II E11.4 9 [facility] [address] [facility] [id number] [address] [place] [address] Oct, [facility] [address] [place] [id number] [place] [address] Sep, Chronic pain G89.29 [facility] [address] [place] [id number] [place] [address] Sep, [facility] [address] [place] [id number] [place] [address] Sep, Bilateral primary osteoarthr itis of knee M17.0 [facility] [address] [facility] [id number] [address] [place] [address] Sep, Generalized edema R60.1 [facility] [address] [facility] [id number] [address] [place] [address] Sep, Bipolar I disorder, most rec ent episode (or current) mixed, moderate F31.62 [facility] [address] [place] [id number] [place] [address] Sep, Hypoxia R09.02 ; Other hyper volemia E87.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 ; Anemia of chronic illness D63.8 and BMI 50.0- 59.9, adult Z68.43 [place] [address] [place] [id number] [place] [address] Sep, [place] [address] [place] [id number] [place] [address] Sep, Bipolar I disorder, most rec ent episode (or current) mixed, moderate F31.62 [place] [address] [place] [id number] [place] [address] Aug, Chronic pain G89.29 [place] [address] [place] [id number] [place] [address] Aug, Generalized edema R60.1 [place] [address] [place] [id number] [place] [address] Aug, [place] [address] [place] [id number] [place] [address] Aug, [place] [address] [place] [id number] [place] [address] 14 Aug, 2017 Bipolar I disorder, most rec ent episode (or current) mixed, moderate F31.62 [place] [address] [place] [id number] [place] [address] 07 Aug, 2017 Bipolar I disorder, most rec ent episode (or current) mixed, moderate F31.62 [place] [address] [place] [id number] [place] [address] 04 Aug, 2017 Chronic pain G89.29 [place] [address] [place] [id number] [place] [address] 30 Jul, 2017 Bipolar I disorder, most rec ent episode (or current) mixed, moderate F31.62 [facility] [address] [facility] [id number] [address] [place] [address] Jul, Bipolar I disorder, most rec ent episode (or current) mixed, moderate F31.62 and BMI 60.0-69.9, adult Z68.44 [facility] [address] [facility] [id number] [address] [place] [address] Jul, Bipolar I disorder, most rec ent episode (or current) mixed, moderate F31.62 [place] [address] [facility] [id number] [address] [place] [address] Jul, Chronic pain G89.29 [place] [address] [place] [id number] [place] [address] Jul, Bipolar I disorder, most rec ent episode (or current) mixed, moderate F31.62 [place] [address] [facility] [id number] [address] [place] [address] Jun, Polyneuropathy associated wi th underlying disease G63 and Diabetes E11.9 [facility] [address] [facility] [id number] [address] [place] [address] Jun, Bipolar I disorder, most rec ent episode (or current) mixed, moderate F31.62 [facility] [address] [facility] [id number] [address] [place] [address] Jun, Chronic pain G89.29 [facility] [address] [facility] [id number] [address] [place] [address] May, Bipolar I disorder, most rec ent episode (or current) mixed, moderate F31.62 [place] [address] [facility] [id number] [address] [place] [address] May, Bipolar I disorder, most rec ent episode (or current) mixed, moderate F31.62 [facility] [address] [facility] [id number] [address] [place] [address] May, Diabetic polyneuropathy asso ciated with type 2 diabetes mellitus E11.42 [place] [address] [facility] [id number] [address] [place] [address] 18 May, 2017 Bipolar I disorder, most rec ent episode (or current) mixed, moderate F31.62 [facility] [address] [facility] [id number] [address] [place] [address] 13 May, 2017 Bipolar I disorder, most rec ent episode (or current) mixed, moderate F31.62 [facility] [address] [facility] [id number] [address] [place] [address] 12 May, 2017 Chronic pain G89.29 [facility] [address] [facility] [id number] [address] [place] [address] 30 Apr, 2017 Bipolar I disorder, most rec ent episode (or current) mixed, moderate F31.62 [facility] [address] [place] [id number] [place] [address] Apr, [facility] [address] [place] [id number] [place] [address] Apr, Chronic pain G89.29 and DM n euro manif type II E11.49 [facility] [address] [facility] [id number] [address] [place] [id number] Apr, [facility] [address] [place] [id number] [address] [place] [id number] Apr, Bipolar I disorder, most rec ent episode (or current) mixed, moderate F31.62 [facility] [address] [facility] [id number] [address] [place] [id number] Apr, Chronic pain G89.29 [facility] [address] [facility] [id number] [address] [place] [id number] Apr, Iliotibial band syndrome, le ft M76.32 [facility] [address] [facility] [id number] [address] [place] [id number] Apr, Bipolar I disorder, most rec ent episode (or current) mixed, moderate F31.62 [facility] [address] [place] [id number] [address] [place] [id number] Mar, Bipolar I disorder, most rec ent episode (or current) mixed, moderate F31.62 [facility] [address] [id number] [address] [place] [place] [address] Mar, Bipolar I disorder, most rec ent episode (or current) mixed, moderate F31.62 [facility] [address] [facility] [id number] [address] [place] [address] Mar, [facility] [address] [facility] [id number] [address] [place] [address] Mar, Bipolar I disorder, most rec ent episode (or current) mixed, moderate F31.62 [place] [address] [facility] [id number] [address] [place] [address] Mar, Chronic pain G89.29 [facility] [address] [facility] [id number] [address] [place] [address] Mar, Bipolar I disorder, most rec ent episode (or current) mixed, moderate F31.62 [facility] [address] [facility] [id number] [address] [place] [address] Mar, Bipolar I disorder, most rec ent episode (or current) mixed, moderate F31.62 [facility] [address] [facility] [id number] [address] [place] [address] Mar, Acute pain of left knee M25. 562 ; Left hip pain M25.552 ; Generalized edema R60.1 and Tongue swelling R22.0 [facility] [address] [facility] [id number] [address] [place] [address] Mar, [facility] [address] [facility] [id number] [address] [place] [address] Feb, Chronic pain G89.29 [facility] [address] [facility] [id number] [address] [place] [address] Feb, Diabetes E11.9 [facility] [address] [facility] [id number] [address] [place] [address] January, Chronic pain G89.29 [facility] [address] [facility] [id number] [address] [place] [address] January, [facility] [address] [facility] [id number] [address] [place] [address] January, Bipolar I disorder, most rec ent episode (or current) mixed, moderate F31.62 [facility] [address] [facility] [id number] [address] [place] [address] Dec, Bipolar I disorder, most rec ent episode (or current) mixed, moderate F31.62 [facility] [address] [facility] [id number] [address] [place] [address] Dec, Chronic pain G89.29 [facility] [address] [facility] [id number] [address] [place] [address] Dec, Bipolar I disorder, most rec ent episode (or current) mixed, moderate F31.62 [facility] [address] [place] [id number] [address] [place] [address] Dec, Diabetes E11.9 ; Essential h ypertension I10 ; Chronic pain G89.29 and Morbid obesity E66.01 [facility] [address] [facility] [id number] [address] [place] [address] Dec, [facility] [address] [facility] [id number] [address] [place] [address] Dec, Bipolar I disorder, most rec ent episode (or current) mixed, moderate F31.62 [facility] [address] [facility] [id number] [address] [place] [address] Dec, Bipolar I disorder, most rec ent episode (or current) mixed, moderate F31.62 [facility] [address] [facility] [id number] [address] [place] [address] Nov, Chronic pain G89.29 [facility] [address] [facility] [id number] [address] [place] [address] Nov, Bipolar I disorder, most rec ent episode (or current) mixed, moderate F31.62 [facility] [address] [facility] [id number] [address] [place] [address] Nov, [facility] [address] [facility] [id number] [address] [place] [address] Nov, Bipolar I disorder, most rec ent episode (or current) mixed, moderate F31.62 [facility] [address] [facility] [id number] [address] [place] [address] Nov, Bipolar I disorder, most rec ent episode (or current) mixed, moderate F31.62 [facility] [address] [facility] [id number] [address] [place] [address] Nov, [facility] [address] [place] [id number] [address] [place] [address] Nov, [facility] [address] [place] [id number] [address] [place] [address] Nov, [facility] [address] [facility] [id number] [address] [place] [address] Oct, Chronic pain G89.29 [facility] [address] [place] [id number] [address] [place] [address] Oct, Bipolar I disorder, most rec ent episode (or current) mixed, moderate F31.62 [facility] [address] [place] [id number] [address] [place] [address] Oct, [facility] [address] [facility] [id number] [address] [place] [address] Oct, Chronic pain G89.29 ; Diabet es E11.9 ; Anxiety F41.9 and 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 [facility] [address] [facility] [id number] [address] [place] [address] Oct, [facility] [address] [place] [id number] [address] [place] [address] Oct, Diabetes E11.9 [facility] [address] [facility] [id number] [address] [place] [address] Oct, Bipolar I disorder, most rec ent episode (or current) mixed, moderate F31.62 [facility] [address] [facility] [id number] [address] [place] [address] Sep, Chronic pain G89.29 [facility] [address] [facility] [id number] [address] [place] [address] Sep, Chronic pain G89.29 [facility] [address] [facility] [id number] [address] [place] [address] Aug, Chronic pain G89.29 [facility] [address] [facility] [id number] [address] [place] [address] Jul, [facility] [address] [facility] [id number] [address] [place] [address] Jul, Diabetes E11.9 [facility] [address] [facility] [id number] [address] [place] [address] Jul, Chronic pain G89.29 [facility] [address] [facility] [id number] [address] [place] [address] Jul, Bipolar I disorder, most rec ent episode (or current) mixed, moderate F31.62 [facility] [address] [facility] [id number] [address] [place] [address] Jun, Bipolar I disorder, most rec ent episode (or current) mixed, moderate F31.62 [facility] [address] [facility] [id number] [address] [place] [address] Jun, [facility] [address] [facility] [id number] [address] [place] [address] Jun, Bipolar I disorder, most rec ent episode (or current) mixed, moderate F31.62 [facility] [address] [facility] [id number] [address] [place] [address] May, Insomnia, unspecified type G 47.00 [facility] [address] [id number] [address] [place] [address] 22 May, 2016 Bipolar I disorder, most rec ent episode (or current) mixed, moderate F31.62 [facility] [address] [facility] [id number] [address] [place] [address] 14 May, 2016 [facility] [address] [facility] [id number] [address] [place] [address] May, Bipolar I disorder, most rec ent episode (or current) mixed, moderate F31.62 [facility] [address] [facility] [id number] [address] [place] [address] May, Diabetes E11.9 and Essential hypertension I10 [facility] [address] [facility] [id number] [address] [place] [address] Apr, Chronic pain G89.29 [place] [address] [facility] [id number] [address] [place] [address] Apr, Bipolar I disorder, most rec ent episode (or current) mixed, moderate F31.62 [facility] [address] [facility] [id number] [address] [place] [address] Apr, [facility] [address] [facility] [id number] [address] [place] [address] Apr, [facility] [address] [facility] [id number] [address] [place] [address] Mar, Chronic pain G89.29 ; Headac he, unspecified headache type R51 ; Neuropathy G62.9 ; Pain of right hip joint M25.551 and Essential hypertension I10 [facility] [address] [facility] [id number] [address] [place] [address] Mar, Chronic pain G89.29 [facility] [address] [facility] [id number] [address] [place] [address] Mar, Bipolar I disorder, most rec ent episode (or current) mixed, moderate F31.62 [place] [address] [place] [id number] [address] [place] [address] Feb, Bipolar I disorder, most rec ent episode (or current) mixed, moderate F31.62 and Insomnia, unspecified type G47.00 [facility] [address] [id number] [address] [place] [address] Feb, Chronic pain G89.29 [facility] [address] [id number] [address] [place] [address] Feb, Bipolar I disorder, most rec ent episode (or current) mixed, moderate F31.62 [facility] [address] [id number] [address] [place] [address] January, Bipolar I disorder, most rec ent episode (or current) mixed, moderate F31.62 [facility] [address] [facility] [id number] [address] [place] [address] January, Chronic pain G89.29 [facility] [address] [facility] [id number] [address] [place] [address] January, Chronic pain G89.29 and Esse ntial hypertension I10 [facility] [address] [id number] [address] [place] [address] January, Bipolar I disorder, most rec ent episode (or current) mixed, moderate F31.62 [facility] [address] [id number] [address] [place] [address] Dec, [facility] [address] [facility] [id number] [address] [place] [address] Dec, [facility] [address] [id number] [address] [place] [address] Dec, [facility] [address] [facility] [id number] [address] [place] [address] Dec, [facility] [address] [facility] [id number] [address] [place] [address] Nov, Reactive airway disease J45. 909 [place] [address] [facility] [id number] [address] [place] [address] Nov, [facility] [address] [facility] [id number] [address] [place] [id number] Nov, [facility] [address] [facility] [id number] [address] [place] [address] 30 Nov, 2015 [facility] [address] [place] [id number] [place] [address] Nov, [facility] [address] [place] [id number] [address] [place] [address] Nov, Onychomycosis B35.1 ; Hammer toe M20.40 ; [place] or callus L84 and DM neuro manif type II E11.49 [place] [address] [place] [id number] [address] [place] [address] Nov, Chronic pain G89.29 ; Leukoc ytosis D72.829 and Diabetes E11.9 [facility] [id number] [place] [address] Nov, [facility] [address] [address] Oct, Bronchitis J40 [facility] [address] [place] [id number] [address] [place] [address] Oct, [facility] [address] [place] [id number] [address] [place] [address] Oct, [facility] [address] [place] [id number] [address] [place] [address] Oct, Mastoiditis, unspecified lat erality H70.90 and Type 2 diabetes mellitus with complication E11.8 [facility] [address] [facility] [id number] [address] [place] [address] Sep, [facility] [address] [place] [id number] [address] [place] [address] Sep, Dysuria R30.0 ; Cough R05 ; Benign prostatic hyperplasia with lower urinary tract symptoms, unspecified morphology N40.1 ; Hypokalemia E87.6 and Eustachian tube dysfunction, unspecified laterality H69.80 [facility] [address] [facility] [id number] [address] [place] [address] Sep, Moderate mixed bipolar I dis order F31.62 [facility] [address] [place] [id number] [address] [place] [address] Sep, Hypokalemia E87.6 [facility] [address] [facility] [id number] [address] [place] [address] Sep, [facility] [address] [place] [id number] [address] [place] [address] Sep, Upper respiratory tract infe ction, unspecified type J06.9 [facility] [address] [place] [id number] [address] [place] [address] Aug, [facility] [address] [place] [id number] [address] [place] [address] Aug, Dysuria R30.0 [facility] [address] [place] [id number] [address] [place] [address] Aug, [facility] [address] [place] [id number] [address] [place] [address] Jul, [facility] [address] [place] [id number] [address] [place] [address] Jul, [facility] [address] [place] [id number] [address] [place] [address] Jul, [facility] [address] [place] [id number] [address] [place] [address] Jul, [facility] [address] [place] [id number] [address] [place] [address] Jun, [facility] [address] [place] [id number] [address] [place] [address] Jun, [facility] [address] [facility] [id number] [address] [place] [address] Jun, [facility] [address] [facility] [id number] [address] [place] [address] May, [facility] [address] [place] [id number] [address] [place] [address] May, Bipolar I disorder, most rec ent episode (or current) mixed, moderate 296.62 [facility] [address] [place] [id number] [address] [place] [address] May, [facility] [address] [place] [id number] [address] [place] [address] May, Bipolar I disorder, most rec ent episode (or current) mixed, moderate 296.62 and Major depressive disorder, recurrent episode, severe, specified as with psychotic behavior 296.34 [facility] [address] [place] [id number] [address] [place] [address] May, Bipolar I disorder, most rec ent episode (or current) mixed, moderate 296.62 [facility] [address] [place] [id number] [address] [place] [address] May, [facility] [address] [place] [id number] [address] [place] [address] Apr, [facility] [address] [place] [id number] [address] [place] [address] Apr, [facility] [address] [place] [id number] [address] [place] [address] Apr, Unspecified disorder of kidn ey and ureter 593.9 and Diabetes mellitus type 2, uncontrolled 250.02 [facility] [address] [facility] [id number] [address] [place] [address] Apr, [facility] [address] [place] [id number] [address] [place] [address] Apr, [facility] [address] [place] [id number] [address] [place] [address] Apr, [facility] [address] [facility] [id number] [address] [place] [address] Apr, [facility] [id number] [place] [address] Apr, Diabetes mellitus type II, u ncontrolled 250.02 [facility] [address] [place] [id number] [address] [place] [address] Apr, [facility] [address] [place] [id number] [address] [place] [address] Mar, [facility] [address] [place] [id number] [address] [place] [address] Mar, [facility] [address] [place] [id number] [address] [place] [address] Mar, [facility] [address] [place] [id number] [address] [place] [address] Mar, Major depressive disorder, r ecurrent episode, severe, specified as with psychotic behavior 296.34 and Bipolar I disorder, most recent episode (or current) mixed, moderate 296.62 [facility] [address] [place] [id number] [address] [place] [address] Mar, Diabetes 250.00 ; Anuria 788 .5 ; Nausea and vomiting 787.01 and Diarrhea 787.91 [facility] [address] [place] [id number] [address] [place] [address] Mar, Diabetes 250.00 [facility] [address] [facility] [id number] [address] [place] [address] Mar, [facility] [address] [place] [id number] [address] [place] [address] Mar, Diabetes 250.00 [facility] [address] [place] [id number] [address] [place] [address] Mar, [facility] [address] [place] [id number] [address] [place] [address] Mar, [facility] [address] [address] Mar, [place] [address] [address] Mar, [facility] [address] [address] Mar, Bipolar I disorder, most rec ent episode (or current) mixed, moderate 296.62 and Major depressive disorder, recurrent episode, severe, specified as with psychotic behavior 296.[address] [address] Mar, Magnesium deficiency 275.2 ; Hypokalemia 276.8 ; Nausea & vomiting 787.01 and Diabetes mellitus type 2, uncontrolled 250.[address] [address] Feb, [place] [address] [address] Feb, Bipolar I disorder, most rec ent episode (or current) mixed, moderate 296.[address] [address] Feb, Nausea and vomiting 787.01 ; Left elbow pain 719.42 ; Anuria 788.5 and Diabetes 250.[address] [address] Feb, [place] [address] [address] Feb, Hypopotassemia 276.8 and Hyp okalemia 276.[address] [address] Feb, Hypopotassemia 276.8 and Hyp okalemia 276.[address] [address] Feb, Seborrheic keratoses 702.19 [facility] [address] [id number] [address] [place] [address] Feb, Hypopotassemia 276.8 and Low magnesium levels 275.2 [facility] [address] [id number] [address] [place] [address] January, [facility] [address] [id number] [address] [place] [address] January, [facility] [address] [id number] [address] [place] [address] January, [facility] [address] [id number] [address] [place] [address] January, Scalp lesion 709.9 [facility] [address] [id number] [address] [place] [address] January, [facility] [address] [id number] [address] [place] [address] Dec, Tear of medial cartilage or meniscus of knee, current 836.0 and 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 [facility] [address] [id number] [address] [place] [address] Dec, [facility] [address] [id number] [address] [place] [address] Dec, [facility] [address] [id number] [address] [place] [address] Dec, Squamous cell carcinoma, 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 [facility] [address] [id number] [address] [place] [address] Dec, [facility] [address] [id number] [address] [place] [address] Dec, [facility] [address] [id number] [address] [place] [address] Nov, [facility] [address] [id number] [address] [place] [address] Nov, [facility] [address] [id number] [address] [place] [address], [place] [address] Nov, [facility] [address] [id number] [address] [place] [address], [place] [address] Nov, [facility] [address] [id number] [address] [place] [address], [place] [address] Nov, [facility] [address] [id number] [address] [place] [address], [place] [address] Nov, [facility] [address] [id number] [address] [place] [address], [place] [address] Nov, [facility] [address] [id number] [address] [place] [address], [place] [address] Nov, [facility] [address] [id number] [address] [place] [address], [place] [address] Nov, [facility] [address] [id number] [address] [place] [address], [place] [address] Nov, [facility] [address] [id number] [address] [place] [address], [place] [address] Nov, [facility] [address] [id number] [address] [place] [address], [place] [address] Nov, [facility] [address] [id number] [address] [place] [address], [place] [address] Oct, 2014 [facility] [address] [id number] [address] [place] [address], [place] [address] Oct, 2014 [facility] [address] [id number] [address] [place] [address], [place] [address] Oct, 2014 [facility] [address] [id number] [address] [place] [id number] Oct, 2014 [facility] [address] [id number] [address] [place] [id number] 05 Oct, 2014 [facility] [address] [id number] [address] [place] [address], [place] [address] Oct, [facility] [address] [id number] [address] [place] [address], [place] [address] Oct, [facility] [address] [id number] [address] [place] [address], [place] [address] Oct, [facility] [address] [id number] [address] [place] [address], [place] [address] Oct, [facility] [address] [id number] [address] [place] [address], [place] [address] Sep, [facility] [address] [id number] [address] [place] [address], [place] [address] Sep, [facility] [address] [id number] [address] [place] [address], [place] [address] Sep, [facility] [address] [id number] [address] [place] [address], [place] [address] Sep, [facility] [address] [id number] [address] [place] [address], [place] [address] Sep, [facility] [address] [id number] [address] [place] [id number] Sep, [facility] [address] [id number] [address] [place] [address], [place] [address] Sep, [facility] [address] [id number] [address] [place] [id number] Sep, [facility] [address] [id number] [address] [place] [address], [place] [address] Sep, [facility] [address] [id number] [address] [place] [address], [place] [address] Sep, [facility] [address] [id number] [address] [place] [address], [place] [address] Sep, [facility] [address] [id number] [address] [place] [id number] 08 Sep, 2014 [facility] [address] [id number] [address] [place] [address], [place] [address] Sep, [facility] [facility] [address] [id number] [address] [place] [address], [place] [address] Sep, [facility] [address] [id number] [address] [place] [address], [place] [address] Sep, [facility] [address] [id number] [address] [place] [address], [place] [address] Sep, [facility] [address] [id number] [address] [place] [address], [place] [address] Aug, [facility] [address] [id number] [address] [place] [address], [place] [address] Aug, [facility] [address] [id number] [address] [place] [address], [place] [address] Aug, [facility] [address] [id number] [address] [place] [address], [place] [address] Aug, [facility] [address] [id number] [address] [place] [address], [place] [address] Aug, [facility] [address] [id number] [address] [place] [address], [place] [address] Aug, [facility] [address] [id number] [address] [place] [address], [place] [address] Aug, [facility] [address] [id number] [address] [place] [address], [place] [address] Aug, [facility] [address] [id number] [address] [place] [address], [place] [address] Aug, [facility] [address] [id number] [address] [place] [address], [place] [address] Aug, [facility] [address] [id number] [address] [place] [address], [place] [address] Aug, [facility] [address] [facility] [id number] Aug, [facility] [address] [id number] [facility] [address] Aug, [facility] [address] [id number] [facility] [address] Aug, [facility] [address] [id number] [facility] [address] Aug, [facility] [address] [id number] [facility] [address] Aug, [facility] [address] [id number] [address] [place] [address], [place] [address] Aug, [facility] [address] [id number] [facility] [address] Aug, [facility] [address] [id number] [address] [place] [address], [place] [address] Aug, [facility] [address] [id number] [address] [place] [address], [place] [address] Aug, [facility] [address] [id number] [address] [place] [address], [place] [address] Aug, [facility] [address] [id number] [address] [place] [address], [place] [address] Aug, [facility] [address] [id number] [address] [place] [address], [place] [address] Aug, [facility] [address] [id number] [address] [place] [address], [place] [address] Aug, [facility] [address] [id number] [address] [place] [address], [place] [address] Aug, [facility] [address] [id number] [address] [place] [address], [place] [address] Aug, [facility] [address] [id number] [address] [place] [address], [place] [address] Aug, [facility] [address] [id number] [address] [place] [address], [place] [address] Aug, [facility] [address] [id number] [address] [place] [address], [place] [address] Aug, [facility] [address] [id number] [address] [place] [address], [place] [address] Aug, [facility] [address] [id number] [address] [place] [address], [place] [address] Jul, [facility] [address] [id number] [address] [place] [address], [place] [address] Jul, [facility] [address] [id number] [address] [place] [address], [place] [address] Jul, [facility] [address] [id number] [address] [place] [address], [place] [address] Jul, [facility] [address] [id number] [address] [place] [address], [place] [address] Jul, [facility] [address] [id number] [address] [place] [address], [place] [address] Jul, [facility] [address] [id number] [address] [place] [address], [place] [address] Jul, [facility] [address] [id number] [address] [place] [address] Jul, [facility] [address] [id number] [address] [place] [address] Jul, [facility] [address] [id number] [address] [place] [address], [place] [address] Jul, [facility] [address] [id number] [address] [place] [address], [place] [address] Jun, [facility] [address] [id number] [address] [place] [address] Jun, [facility] [address] [id number] [address] [place] [address] 16 Jun, 2014 [facility] [address] [id number] [address] [place] [address], [place] [address] 16 Jun, 2014 [facility] [address] [id number] [address] [place] [address], [place] [address] 15 Jun, 2014 [facility] [address] [id number] [address] [place] [address], [place] [address] 15 Jun, 2014 [facility] [address] [id number] [address] [place] [address], [place] [address] 05 Jun, 2014 [facility] [address] [id number] [address] [place] [address], [place] [address] Jun, [facility] [address] [id number] [address] [place] [address], [place] [address] Jun, [facility] [address] [id number] [address] [place] [address], [place] [address] Jun, [facility] [address] [id number] [address] [place] [address], [place] [address] 29 May, 2013 [facility] [address] [id number] [address] [place] [address], [place] [address] 29 Sep, 2013 [facility] [address] [id number] [address] [place] [address], [place] [address] 26 Sep, 2013 [facility] [address] [id number] [address] [place] [address], [place] [address] 26 Sep, 2013 [facility] [address] [id number] [address] [place] [address], [place] [address] 17 Sep, 2013 [facility] [address] [id number] [address] [place] [address], [place] [address] 17 Sep, 2013 [facility] [address] [id number] [address] [place] [address], [place] [address] 15 May, 2013 [facility] [address] [id number] [address] [place] [address], [place] [address] 15 May, 2013 [facility] [address] [id number] [facility] [address] 15 May, 2013 [facility] [address] [id number] [facility] [address] 15 May, 2013 [facility] [address] [id number] [facility] [address] 10 May, 2013 [facility] [address] [id number] [facility] [address] 10 May, 2013 [facility] [address] [id number] [facility] [address] 09 May, 2013 [facility] [address] [id number] [address] [place] [address], [place] [address] 09 May, 2013 [facility] [address] [id number] [address] [place] [address], [place] [address] 04 May, 2013 [facility] [address] [id number] [address] [place] [address], [place] [address] May, 2013 [facility] [address] [id number] [address] [place] [address], [place] [address] Apr, [facility] [address] [id number] [address] [place] [address], [place] [address] Apr, [facility] [address] [id number] [address] [place] [address], [place] [address] Apr, [facility] [address] [id number] [address] [place] [address], [place] [address] Apr, [facility] [address] [id number] [address] [place] [address], [place] [address] Apr, [facility] [address] [id number] [address] [place] [address], [place] [address] Apr, [facility] [address] [id number] [address] [place] [address], [place] [address] Apr, [facility] [address] [id number] [address] [place] [address], [place] [address] Apr, [facility] [address] [id number] [facility] [address] Apr, [facility] [address] [id number] [facility] [address] Apr, [facility] [address] [id number] [facility] [address] Apr, [facility] [address] [id number] [address] [place] [address], [place] [address] Apr, [facility] [address] [id number] [facility] [address] Apr, [facility] [address] [id number] [address] [place] [address], [place] [address] Apr, [facility] [address] [id number] [address] [place] [address], [place] [address] Apr, [facility] [address] [id number] [address] [place] [address], [place] [address] Mar, [facility] [address] [id number] [address] [place] [address], [place] [address] Mar, [facility] [address] [id number] [address] [place] [address], [place] [address] Mar, [facility] [address] [id number] [address] [place] [address], [place] [address] Mar, [facility] [address] [id number] [address] [place] [address], [place] [address] Mar, [facility] [address] [id number] [address] [place] [address], [place] [address] Mar, [facility] [address] [id number] [address] [place] [address], [place] [address] Mar, [facility] [address] [id number] [address] [place] [address], [place] [address] Mar, [facility] [address] [id number] [address] [place] [address], [place] [address] Mar, 2013 [facility] [address] [id number] [address] [place] [address], [place] [address] Mar, 2013 [facility] [address] [id number] [address] [place] [address], [place] [address] Mar, 2013 [facility] [address] [id number] [address] [place] [address], [place] [address] Mar, 2013 [facility] [address] [id number] [address] [place] [address], [place] [address] Mar, 2013 [facility] [address] [id number] [address] [place] [address], [place] [address] Mar, 2013 [facility] [address] [id number] [address] [place] [address], [place] [address] Mar, 2013 [facility] [address] [id number] [address] [place] [address], [place] [address] Mar, 2013 [facility] [address] [id number] [address] [place] [address], [place] [address] Mar, 2013 [facility] [address] [id number] [address] [place] [address], [place] [address] Mar, 2013 [facility] [address] [id number] [address] [place] [address], [place] [address] Feb, [facility] [address] [id number] [address] [place] [address], [place] [address] Feb, [facility] [address] [id number] [address] [place] [address], [place] [address] Feb, [facility] [address] [id number] [address] [place] [address], [place] [address] Feb, [facility] [address] [id number] [address] [place] [address], [place] [address] Feb, [facility] [address] [id number] [address] [place] [address], [place] [address] Feb, [facility] [address] [id number] [facility] [address] Feb, [facility] [address] [id number] [facility] [address] Feb, [facility] [address] [id number] [facility] [address] Feb, [facility] [address] [id number] [facility] [address] Feb, [facility] [address] [id number] [facility] [address] Feb, [facility] [address] [id number] [address] [place] [address], [place] [address] Feb, [facility] [address] [id number] [facility] [address] Feb, [facility] [address] [id number] [address] [place] [address], [place] [address] Feb, [facility] [address] [id number] [address] [place] [address], [place] [address] January, [facility] [address] [id number] [address] [place] [address], [place] [address] January, [facility] [address] [id number] [facility] [address] January, [facility] [address] [id number] [address] [place] [address], [place] [address] January, [facility] [address] [id number] [facility] [address] January, [facility] [address] [id number] [address] [place] [address], [place] [address] January, [facility] [address] [id number] [facility] [address] January, [facility] [address] [id number] [address] [place] [address], [place] [address] January, [facility] [address] [id number] [address] [place] [address], [place] [address] January, [facility] [address] [id number] [address] [place] [address], [place] [address] January, [facility] [address] [id number] [address] [place] [address], [place] [address] January, [facility] [address] [id number] [address] [place] [address], [place] [address] January, [facility] [address] [id number] [address] [place] [address], [place] [address] January, [facility] [address] [id number] [address] [place] [address], [place] [address] January, [facility] [address] [id number] [address] [place] [address], [place] [address] Dec, [facility] [address] [id number] [address] [place] [address], [place] [address] Dec, [facility] [address] [id number] [address] [place] [address], [place] [address] Dec, [facility] [address] [id number] [address] [place] [address], [place] [address] Dec, [facility] [address] [id number] [address] [place] [address], [place] [address] Dec, [facility] [address] [id number] [address] [place] [address], [place] [address] Dec, [facility] [address] [id number] [address] [place] [address], [place] [address] Dec, [facility] [address] [id number] [address] [place] [address], [place] [address] Dec, [facility] [address] [id number] [address] [place] [address], [place] [address] Dec, [facility] [address] [id number] [facility] [address] Dec, [facility] [address] [id number] [facility] [address] Nov, [facility] [address] [id number] [facility] [address] Nov, [facility] [address] [id number] [address] [place] [address], [place] [address] Nov, [facility] [address] [id number] [address] [place] [address], [place] [address] Nov, [facility] [address] [id number] [address] [place] [address], [place] [address] Nov, [facility] [address] [id number] [address] [place] [address], [place] [address] Nov, [facility] [address] [id number] [address] [place] [address], [place] [address] Nov, [facility] [address] [id number] [address] [place] [address], [place] [address] Nov, [facility] [address] [id number] [address] [place] [address], [place] [address] Nov, [facility] [address] [id number] [address] [place] [address], [place] [address] Nov, [facility] [address] [id number] [address] [place] [address], [place] [address] Oct, [facility] [address] [id number] [address] [place] [address], [place] [address] Oct, [facility] [address] [id number] [address] [place] [address], [place] [address] Oct, [facility] [address] [id number] [address] [place] [address], [place] [address] Oct, [facility] [address] [id number] [address] [place] [address], [place] [address] Oct, [facility] [address] [id number] [address] [place] [address], [place] [address] Oct, [facility] [address] [id number] [address] [place] [address], [place] [address] Oct, [facility] [address] [id number] [address] [place] [address], [place] [address] Oct, [facility] [address] [id number] [address] [place] [address], [place] [address] Oct, [facility] [address] [id number] [address] [place] [address], [place] [address] Oct, [facility] [address] [id number] [address] [place] [address], [place] [address] Oct, [facility] [address] [id number] [address] [place] [address], [place] [address] Oct, [facility] [address] [id number] [address] [place] [address], [place] [address] Oct, [facility] [address] [id number] [address] [place] [address], [place] [address] Oct, [facility] [address] [id number] [address] [place] [address], [place] [address] Sep, [facility] [address] [id number] [address] [place] [address], [place] [address] Sep, [facility] [address] [id number] [address] [place] [address], [place] [address] Sep, [facility] [address] [id number] [address] [place] [address], [place] [address] Sep, [facility] [address] [id number] [address] [place] [address], [place] [address] Sep, [facility] [address] [id number] [address] [place] [address], [place] [address] Sep, [facility] [address] [id number] [address] [place] [address], [place] [address] 14 Sep, 2013 [facility] [address] [id number] [address] [place] [address], [place] [address] 14 Sep, 2013 [facility] [address] [id number] [address] [place] [address], [place] [address] 08 Sep, 2013 [facility] [address] [id number] [address] [place] [address], [place] [address] 08 Sep, 2013 [facility] [address] [id number] [address] [place] [address], [place] [address] Aug, [facility] [address] [id number] [address] [place] [address], [place] [address] Aug, [facility] [address] [id number] [address] [place] [address], [place] [address] Jul, [facility] [address] [id number] [address] [place] [address], [place] [address] Jul, [facility] [address] [id number] [address] [place] [address], [place] [address] Jul, [facility] [address] [id number] [address] [place] [address], [place] [address] Jul, [facility] [address] [id number] [address] [place] [address], [place] [address] Jul, [facility] [address] [id number] [address] [place] [address], [place] [address] Jul, [facility] [address] [id number] [address] [place] [address], [place] [address] Jul, [facility] [address] [id number] [address] [place] [address], [place] [address] Jul, [facility] [address] [id number] [address] [place] [address], [place] [address] 08 Jul, 2013 [facility] [address] [id number] [address] [place] [address], [place] [address] 08 Jul, 2013 [facility] [address] [id number] [address] [place] [address], [place] [address] Jul, 2012 [facility] [address] [id number] [address] [place] [address] Jul, [facility] [address] [id number] [address] [place] [address] Jul, 2012 [facility] [address] [id number] [address] [place] [address] Jul, 2012 [facility] [address] [id number] [address] [place] [address], [place] [address] Jul, [facility] [address] [id number] [address] [place] [address] Jul, [facility] [address] [id number] [address] [place] [address] Jul, [facility] [address] [id number] [address] [place] [address] Jul, [facility] [address] [id number] [address] [place] [address] Jul, [facility] [address] [id number] [address] [place] [address] Jun, [facility] [address] [id number] [address] [place] [id number] 16 Jun, 2012 [facility] [address] [id number] [address] [place] [address] 16 Jun, 2012 [facility] [address] [id number] [address] [place] [address] Jun, 2012 [facility] [address] [id number] [address] [place] [address] Jun, 2012 [facility] [address] [id number] [address] [place] [address] Jun, 2012 [facility] [address] [id number] [address] [place] [address], [place] [address] 10 Jun, 2013 [facility] [address] [id number] [address] [place] [address], [place] [address] Jun, [facility] [address] [id number] [address] [place] [address], [place] [address] Jun, [facility] [address] [id number] [address] [place] [address], [place] [address] Jun, [facility] [address] [id number] [address] [place] [address], [place] [address] Jun, [facility] [address] [id number] [address] [place] [address], [place] [address] 26 May, 2012 [facility] [address] [id number] [address] [place] [address], [place] [address] 25 May, 2012 [facility] [address] [id number] [address] [place] [address], [place] [address] 19 May, 2012 [facility] [address] [id number] [address] [place] [address], [place] [address] 17 May, 2012 [facility] [address] [id number] [address] [place] [address], [place] [address] 11 May, 2013 [facility] [address] [id number] [address] [place] [address], [place] [address] 10 May, 2012 [facility] [address] [id number] [address] [place] [address], [place] [address] 09 May, 2012 [facility] [address] [id number] [address] [place] [address], [place] [address] 05 May, 2012 [facility] [address] [id number] [address] [place] [address], [place] [address] 30 Apr, 2013 [facility] [address] [id number] [address] [place] [address], [place] [address] Apr, [facility] [address] [id number] [address] [place] [address], [place] [address] Apr, [facility] [address] [id number] [address] [place] [address], [place] [address] Apr, [facility] [address] [id number] [address] [place] [address], [place] [address] Apr, [facility] [address] [id number] [address] [place] [address], [place] [address] Mar, [facility] [address] [id number] [address] [place] [address], [place] [address] Mar, [facility] [address] [id number] [address] [place] [address], [place] [address] Mar, [facility] [address] [id number] [address] [place] [address], [place] [address] Mar, [facility] [address] [id number] [address] [place] [address], [place] [address] Mar, [facility] [address] [id number] [address] [place] [address], [place] [address] Mar, [facility] [address] [id number] [address] [place] [address], [place] [address] Mar, [facility] [address] [id number] [address] [place] [address], [place] [address] Mar, [facility] [address] [id number] [address] [place] [address], [place] [address] Feb, [facility] [address] [id number] [address] [place] [address], [place] [address] Feb, [facility] [address] [id number] [address] [place] [address], [place] [address] January, [facility] [address] [id number] [address] [place] [address], [place] [address] January, [facility] [address] [id number] [address] [place] [address], [place] [address] Dec, [facility] [address] [id number] [address] [place] [address], [place] [address] Dec, [facility] [address] [id number] [address] [place] [address], [place] [address] Nov, [facility] [address] [id number] [address] [place] [address], [place] [address] Nov, [facility] [address] [id number] [address] [place] [address], [place] [address] Nov, [facility] [address] [id number] [address] [place] [address], [place] [address] Nov, [facility] [address] [id number] [address] [place] [address], [place] [address] Oct, [facility] [address] [id number] [address] [place] [address], [place] [address] Oct, [facility] [address] [id number] [address] [place] [address], [place] [address] Oct, [facility] [address] [id number] [address] [place] [address], [place] [address] 26 Oct, 2012 [facility] [address] [id number] [address] [place] [address], [place] [address] 16 Oct, 2012 [facility] [address] [id number] [address] [place] [address], [place] [address] 14 Oct, 2012 [facility] [address] [id number] [address] [place] [address], [place] [address] 08 Oct, 2012 [facility] [address] [id number] [address] [place] [address], [place] [address] 07 Oct, 2012 [facility] [address] [id number] [address] [place] [address], [place] [address] 03 Oct, 2012 [facility] [address] [id number] [address] [place] [address], [place] [address] 30 Sep, 2012 [facility] [address] [id number] [address] [place] [address], [place] [address] Sep, [facility] [address] [id number] [address] [place] [address], [place] [address] 23 Sep, 2012 [facility] [address] [id number] [address] [place] [address], [place] [address] Sep, [facility] [address] [id number] [address] [place] [address], [place] [address] 17 Sep, 2012 [facility] [address] [id number] [address] [place] [address], [place] [address] Sep, [facility] [address] [id number] [address] [place] [address], [place] [address] 09 Sep, 2012 [facility] [address] [id number] [address] [place] [address], [place] [address] Sep, [facility] [address] [id number] [address] [place] [address], [place] [address] Aug, [facility] [address] [id number] [address] [place] [address], [place] [address] 31 Aug, 2012 [facility] [address] [id number] [address] [place] [address], [place] [address] Aug, [facility] [address] [id number] [address] [place] [address], [place] [address] Aug, [facility] [address] [id number] [address] [place] [address], [place] [address] Aug, [facility] [address] [id number] [address] [place] [address], [place] [address] Aug, [facility] [address] [id number] [address] [place] [address], [place] [address] Aug, [facility] [address] [id number] [address] [place] [address], [place] [address] Aug, [facility] [address] [id number] [address] [place] [address], [place] [address] Jul, [facility] [address] [id number] [address] [place] [address] Jul, [facility] [address] [id number] [address] [place] [address], [place] [address] Jul, [facility] [address] [id number] [address] [place] [address] Jul, [facility] [address] [id number] [address] [place] [address], [place] [address] Jul, [facility] [address] [id number] [address] [place] [address] Jul, [facility] [address] [id number] [address] [place] [address], [place] [address] Jun, [facility] [address] [id number] [address] [place] [address] Jun, [facility] [address] [id number] [address] [place] [address] Jun, [facility] [address] [id number] [address] [place] [address], [place] [address] Jun, [facility] [address] [id number] [address] [place] [address] Jun, [facility] [address] [id number] [address] [place] [address] Jun, [facility] [address] [id number] [address] [place] [address] Jun, [facility] [address] [id number] [address] [place] [address] Jun, [facility] [address] [id number] [address] [place] [address] 10 Jun, 2012 [facility] [address] [id number] [address] [place] [address] 26 May, 2012 [facility] [address] [id number] [address] [place] [address], [place] [address] 24 May, 2012 [facility] [address] [id number] [address] [place] [address], [place] [address] May, [facility] [address] [id number] [address] [place] [address], [place] [address] Apr, [facility] [address] [id number] [address] [place] [address], [place] [address] Apr, [facility] [address] [id number] [address] [place] [address], [place] [address] Apr, [facility] [address] [id number] [address] [place] [address], [place] [address] Apr, [facility] [address] [id number] [address] [place] [address], [place] [address] Apr, [facility] [address] [id number] [address] [place] [address], [place] [address] Apr, [facility] [address] [id number] [address] [place] [address], [place] [address] Mar, [facility] [address] [id number] [address] [place] [address], [place] [address] Mar, [facility] [address] [id number] [address] [place] [address], [place] [address] Mar, [facility] [address] [id number] [address] [place] [address], [place] [address] Mar, [facility] [address] [id number] [address] [place] [address], [place] [address] Feb, [facility] [address] [id number] [address] [place] [address], [place] [address] Feb, [facility] [address] [id number] [address] [place] [address], [place] [address] Feb, [facility] [address] [id number] [address] [place] [address], [place] [address] Feb, [facility] [address] [id number] [address] [place] [address], [place] [address] Feb, [facility] [address] [id number] [address] [place] [address], [place] [address] January, [facility] [address] [id number] [address] [place] [address], [place] [address] January, [facility] [address] [id number] [address] [place] [address], [place] [address] January, [facility] [address] [id number] [address] [place] [address], [place] [address] January, [facility] [address] [id number] [address] [place] [address], [place] [address] January, [facility] [address] [id number] [address] [place] [address], [place] [address] January, [facility] [address] [id number] [address] [place] [address], [place] [address] Dec, [facility] [address] [id number] [address] [place] [address], [place] [address] Dec, [facility] [address] [id number] [address] [place] [address], [place] [address] Dec, [facility] [address] [id number] [address] [place] [address], [place] [address] Dec, [facility] [address] [id number] [address] [place] [address], [place] [address] Dec, [facility] [address] [id number] [address] [place] [address], [place] [address] Nov, [facility] [address] [id number] [address] [place] [address], [place] [address] 14 Nov, 2011 [facility] [address] [id number] [address] [place] [address], [place] [address] Nov, [facility] [address] [id number] [address] [place] [address], [place] [address] Nov, [facility] [address] [id number] [address] [place] [address], [place] [address] 29 Oct, 2011 [facility] [address] [id number] [address] [place] [address], [place] [address] 28 Oct, 2011 [facility] [address] [id number] [address] [place] [address], [place] [address] 24 Oct, 2011 [facility] [address] [id number] [address] [place] [address], [place] [address] 13 Oct, 2011 [facility] [address] [id number] [address] [place] [address], [place] [address] 08 Oct, 2011 [facility] [address] [id number] [address] [place] [address], [place] [address] Sep, [facility] [address] [id number] [address] [place] [address], [place] [address] Sep, [facility] [address] [id number] [address] [place] [address], [place] [address] Sep, [facility] [address] [id number] [address] [place] [address], [place] [address] Sep, [facility] [address] [id number] [address] [place] [address], [place] [address] Sep, [facility] [address] [id number] [address] [place] [address], [place] [address] Sep, [facility] [address] [id number] [address] [place] [address], [place] [address] Aug, [facility] [address] [id number] [address] [place] [address], [place] [address] Aug, [facility] [address] [id number] [address] [place] [address], [place] [address] Aug, [facility] [address] [id number] [address] [place] [address], [place] [address] Jul, [facility] [address] [id number] [address] [place] [address], [place] [address] Jul, [facility] [address] [id number] [address] [place] [address], [place] [address] Jul, [facility] [address] [id number] [address] [place] [address], [place] [address] Jul, [facility] [address] [id number] [address] [place] [address], [place] [address] Jun, [facility] [address] [id number] [address] [place] [address], [place] [address] Jun, [facility] [address] [id number] [address] [place] [address], [place] [address] Jun, [facility] [address] [id number] [address] [place] [address], [place] [address] Jun, [facility] [address] [id number] [address] [place] [address], [place] [address] Jun, [facility] [address] [id number] [address] [place] [address], [place] [address] Jun, [facility] [address] [id number] [address] [place] [address], [place] [address] Mar, [facility] [address] [id number] [address] [place] [address] Dec, [facility] [address] [id number] [address] [place] [address] Dec, [facility] [address] [id number] [address] [place] [address] Nov, [facility] [address] [id number] [address] [place] [address], [place] [address] 16 Nov, 2010 [facility] [address] [id number] [address] [place] [address] Sep, [facility] [address] [id number] [address] [place] [address] Aug, [facility] [address] [id number] [address] [place] [address] 29 Aug, 2010 [facility] [address] [id number] [address] [place] [address], [place] [address] 29 Aug, 2010 [facility] [address] [id number] [address] [place] [address], [place] [address] 29 Aug, 2010 [facility] [address] [id number] [address] [place] [address], [place] [address] 27 Aug, 2010 [facility] [address] [id number] [address] [place] [address], [place] [address] 14 Aug, 2010 [facility] [address] [id number] [address] [place] [address], [place] [address] 08 Aug, 2010 [facility] [address] [id number] [address] [place] [address], [place] [address] 08 Aug, 2010 [facility] [address] [id number] [address] [place] [address], [place] [address] 07 Aug, 2010 [facility] [address] [id number] [address] [place] [address], [place] [address] 06 Aug, 2010 [facility] [address] [id number] [address] [place] [address], [place] [address] 06 Aug, 2010 [facility] [address] [id number] [address] [place] [address], [place] [address] Aug, [facility] [address] [id number] [address] [place] [address], [place] [address] 30 Jul, 2010 [facility] [address] [id number] [address] [place] [address], [place] [address] 30 Jul, 2010 [facility] [address] [id number] [address] [place] [address], [place] [address] 30 Jul, 2010 [facility] [address] [id number] [address] [place] [address], [place] [address] 17 Jul, 2010 [facility] [address] [id number] [address] [place] [address], [place] [address] 08 Jul, 2010 [facility] [address] [id number] [address] [place] [address], [place] [address] Jul, [facility] [address] [id number] [address] [place] [address], [place] [address] 24 Jun, 2010 [facility] [address] [id number] [address] [place] [address], [place] [address] Jun, [facility] [address] [id number] [address] [place] [address], [place] [address] Jun, [facility] [address] [id number] [address] [place] [address], [place] [address] Jun, [facility] [address] [id number] [address] [place] [address], [place] [address] Apr, [facility] [address] [id number] [address] [place] [address], [place] [address] Mar, [facility] [address] [id number] [address] [place] [address], [place] [address] Feb, [facility] [address] [id number] [address] [place] [address], [place] [address] January, [facility] [address] [id number] [address] [place] [address], [place] [address] Dec, [facility] [address] [id number] [address] [place] [address], [place] [address] Nov, [facility] [address] [id number] [address] [place] [address], [place] [address] Aug, [facility] [address] [id number] [address] [place] [address], [place] [address] Aug, [facility] [address] [id number] [address] [place] [address], [place] [address] Aug, [facility] [address] [id number] [address] [place] [address], [place] [address] Jul, [facility] [address] [id number] [address] [place] [address], [place] [address] Jul, [facility] [address] [id number] [address] [place] [id number] Jul, [facility] [address] [id number] [address] [place] [address] Jun, [facility] [address] [id number] [address] [place] [id number] Jun, [facility] [address] [id number] [address] [place] [address] Jun, [facility] [address] [id number] [address] [place] [id number] Jun, [facility] [address] [id number] [address] [place] [address] Jun, [facility] [address] [id number] [address] [place] [id number] Jun, [facility] [address] [id number] [address] [place] [id number] Apr, [facility] [address] [id number] [address] [place] [id number] Apr, [facility] [address] [id number] [address] [place] [id number] Feb, [facility] [address] [id number] [address] [place] [id number] January, [facility] [address] [id number] [address] [place] [id number] Dec, IMMUNIZATIONS No Known Immunizations SOCIAL HISTORY [...] Medical History skin cancer-basal cell R mandaeism (removed ) Medical History Arthritis Medical History [...] Surgical History colonoscopy 2009 ([facility]), 2013 ([facility] ) Surgical History heart cath: CAD w/ [...] History inability to urinate 09/16/15 Hospitalization History [facility] mental health ea [facility] 1999's Hospitalization History hyperkalemia 10/2017 Hospitalization History fluid in lung
--- OUTSIDE RECORDS SUMMARY | 2020-03-01 17:13 | XMS REPORT ---
Author Author Michele WASHBURN Organization 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 Name Role Phone NOEMI WASHBURN Unavailable PROBLEMS Type Condition ICD9-CM Code AFT51-CR Code Onset Dates Condition S tatus SNOMED Code Problem Cough R05 Active 95982775 Problem Benign prostatic hyperplasia with lower urinary tract symptoms, unspecified morphology N40.1 Active 98532 6007 Problem Eustachian tube dysfunction, unspecified laterality H69.80 Active 72312418 Problem Chronic pain G89.29 Active 5712198 1 Problem DM neuro manif type II E11.49 Active 97866611 Problem Diabetes E11.9 Active 49828678 Problem Leukocytosis D72.829 Active 2546342 06 Problem Falling R29.6 Active 995934228 Problem Pressure ulcer of other site, stage 3 L89.893 Active 374634010 Problem 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 Active 960785681 Problem Eye exam abnormal R93.8 Active 16 6028890 Problem Dysuria R30.0 Active 60677278 Problem Hypokalemia E87.6 Active 39808493 Problem Morbid obesity E66.01 Active 96444 6002 Problem Anxiety F41.9 Active 62893902 Problem Diabetic polyneuropathy associated with type 2 d iabetes mellitus E11.42 Active 36964683 Problem Essential hypertension I10 Active 76848171 Problem Bilateral primary osteoarthritis of knee M17.0 Active 457405459 Problem Polyneuropathy associated with underlying disease G63 Active 580739522 Problem Anemia of chronic illness D63.8 Acti ve 975934397 Problem Lymphocytosis D72.820 Active 342531 09 Problem Retinal edema H35.81 Active 075421 6 Problem Chronic lymphocytic leukemia C91.10 A ctive 32514046 Problem Bipolar disorder, in partial remission, most rec ent episode depressed F31.75 Active 86903633 Problem Pure hypercholesterolemia E78.00 Acti ve 806956356 Problem Primary osteoarthritis of right knee M17.11 Active 282447066292120 Problem Bipolar disorder F31.9 Active 137 60499 Problem Bipolar I disorder, most recent episode (or curr ent) mixed, moderate F31.62 Active 61283663 Problem Chronic diastolic (congestive) heart failure I50.3 2 Active 452406776 Problem Reactive airway disease J45.909 Active 676575875263 Problem Insomnia, unspecified type G47.00 Act sharon 058357862 Problem Other chronic pain G89.29 Active 8 2742539 Problem Other iron deficiency anemia D50.8 A ctive 93205765 Problem Mild cognitive impairment G31.84 Acti ve 800673611 Problem Skin cancer C44.90 Active 80539299 7 ALLERGIES No Information ENCOUNTERS Encounter Location Date Diagnosis [place] [address] [address] [facility] [id number] [address] [phone] Jun, [place] [address] [address] [place] [id number] [address] [place] [phone] Jun, [facility] [address] [place] [id number] [address] [phone] May, [facility] [address] [place] [id number] [address] [phone] May, [place] [address] [address] [place] [id number] [address] [address] Apr, Chronic pain G89.29 and Bipo lar disorder F31.9 [facility] [address] [facility] [id number] [address] [address] Mar, Bipolar disorder F31.9 and C hronic pain G89.29 [facility] [address] [facility] [id number] [address] [phone] Feb, Bipolar disorder F31.9 [facility] [address] [facility] [id number] [address] [phone] Feb, Cellulitis of right upper ex tremity L03.113 and Skin abrasion T14.8XXA [facility] [address] [facility] [id number] [address] [address] Feb, Bipolar disorder, in partial remission, most recent episode depressed F31.75 and Mild cognitive impairment G31.84 [facility] [address] [id number] [address] [place] [phone] Feb, Chronic pain G89.29 [facility] [address] [id number] [address] [phone] Feb, Bipolar disorder, in partial remission, most recent episode depressed F31.75 and Mild cognitive impairment G31.84 [facility] [address] [id number] [address] [phone] January, Bipolar disorder, in partial remission, most recent episode depressed F31.75 and Mild cognitive impairment G31.84 [facility] [address] [id number] [address] [phone] January, Chronic pain G89.29 and Bipo lar disorder F31.9 [facility] [address] [id number] [address] [phone] January, Bipolar disorder, in partial remission, most recent episode depressed F31.75 and Mild cognitive impairment G31.84 [facility] [address] [id number] [address] [phone] Dec, [facility] [address] [id number] [address] [id number] Dec, Chronic pain G89.29 and Bipo lar disorder F31.9 [facility] [address] [id number] [address] [id number] Dec, Edema of both lower extremit ies R60.0 [facility] [address] [id number] [address] [phone] Dec, Bipolar disorder F31.9 [facility] [address] [id number] [address] [phone] Dec, Bipolar disorder, in partial remission, most recent episode depressed F31.75 and Mild cognitive impairment G31.84 [place] [address] [address] [facility] [id number] [address] [phone] Nov, [place] [address] [address] [facility] [id number] [address] [phone] Nov, Chronic pain G89.29 [place] [address] [address] [facility] [id number] [address] [phone] Nov, Bipolar disorder, in partial remission, most recent episode depressed F31.75 and Mild cognitive impairment G31.84 [place] [address] [address] [facility] [id number] [address] [phone] Nov, Bipolar disorder F31.9 [place] [address] [address] [facility] [id number] [address] [phone] Nov, 2018 Encounter for Medicare annua [...] unspecified morphology N40.1 and Essential hypertension I10 [place] [address] [address] [facility] [id number] [address] [phone] Oct, Chronic pain G89.29 [place] [address] [address] [facility] [id number] [address] [phone] Oct, Diabetes E11.9 [place] [address] [address] [facility] [id number] [address] [phone] Oct, Bipolar I disorder, most rec ent episode (or current) mixed, moderate F31.62 and Mild cognitive impairment G31.84 [place] [address] [address] [facility] [id number] [address] [phone] Oct, Bipolar I disorder, most rec ent episode (or current) mixed, moderate F31.62 and Mild cognitive impairment G31.84 [place] [address] [address] [facility] [id number] [address] [address] Sep, Bipolar I disorder, most rec ent episode (or current) mixed, moderate F31.62 and Mild cognitive impairment G31.84 [place] [address] [address] [place] [id number] [address] [phone] Sep, [place] [address] [address] [place] [id number] [address] [address] Sep, Diabetes E11.9 ; Hypoxia R09 .02 ; Hyperglycemia R73.9 ; Therapeutic drug monitoring Z51.81 ; BMI 50.0-59.9, adult Z68.43 and Skin cancer C44.90 [place] [address] [address] [place] [id number] [address] [phone] Sep, Chronic pain G89.29 [place] [address] [address] [place] [id number] [address] [id number] Sep, Bipolar I disorder, most rec ent episode (or current) mixed, moderate F31.62 [place] [address] [address] [place] [id number] [address] [phone] Sep, [place] [address] [address] [place] [id number] [address] [id number] Sep, [place] [address] [address] [place] [id number] [address] [id number] Aug, Chronic pain G89.29 [place] [address] [address] [facility] [id number] [address] [phone] Aug, Bipolar I disorder, most rec ent episode (or current) mixed, moderate F31.62 [place] [address] [address] [place] [id number] [place], [place] [phone] Aug, Bipolar I disorder, most rec ent episode (or current) mixed, moderate F31.62 and Mild cognitive impairment G31.84 [place] [address] [address] [place] [id number] [address] [phone] Jul, [facility] [address] [id number] [address] [id number] Jul, Chronic pain G89.29 [facility] [address] [id number] [address] [phone] Jul, Bipolar I disorder, most rec ent episode (or current) mixed, moderate F31.62 and Mild cognitive impairment G31.84 [facility] [address] [id number] [address] [id number] Jul, Bipolar I disorder, most rec ent episode (or current) mixed, moderate F31.62 and MCI (mild cognitive impairment) G31.84 [facility] [address] [id number] [address] [id number] Jul, [facility] [address] [id number] [address] [id number] Jul, [facility] [address] [id number] [address] [id number] Jul, Bipolar I disorder, most rec ent episode (or current) mixed, moderate F31.62 [facility] [address] [id number] [address] [address] Jul, Chronic pain G89.29 [facility] [address] [id number] [address] [phone] Jun, Bipolar I disorder, most rec ent episode (or current) mixed, moderate F31.62 [facility] [address] [id number] [address] [phone] Jun, Pre-procedure lab exam Z01.[address] [facility] [address] [id number] [address] [id number] Jun, [facility] [address] [id number] [id number] Jun, [facility] [address] [facility] [id number] [address] [id number] Jun, [place] [address] [address] [facility] [id number] [address] [phone] Jun, Forgetfulness R68.89 ; Pre-s yncope R55 ; Localized edema R60.0 ; Other iron deficiency anemia D50.8 and BMI 50.0-59.9, adult Z68.43 [place] [address] [address] [facility] [id number] [address] [id number] Jun, Chronic pain G89.29 [place] [address] [address] [place] [id number] [address] [phone] Jun, Chronic pain G89.29 [place] [address] [address] [place] [id number] [place] [phone] Jun, Bipolar I disorder, most rec ent episode (or current) mixed, moderate F31.62 [place] [address] [address] [place] [id number] [address] [phone] May, Chronic pain G89.29 [place] [address] [address] [place] [id number] [address] [phone] Apr, [place] [address] [address] [place] [id number] [place] [phone] Apr, Chronic pain G89.29 [place] [address] [address] [place] [id number] [address] [phone] Apr, Primary osteoarthritis of ri t knee M17.11 [place] [address] [address] [facility] [id number] [address] [phone] Mar, [place] [address] [address] [place] [id number] [place] [address] Mar, BMI 50.0-59.9, adult Z68.43 and Bipolar disorder, in partial remission, most recent episode depressed F31.75 [place] [address] [address] [place] [id number] [address] [address] Mar, Diabetes E11.9 ; Pure hyperc holesterolemia E78.00 ; Essential hypertension I10 ; Nausea with vomiting, unspecified R11.2 and Headache, unspecified headache type R51 [place] [address] [address] [place] [id number] [place] [phone] Mar, Bipolar I disorder, most rec ent episode (or current) mixed, moderate F31.62 [place] [address] [address] [place] [id number] [place] [address] Mar, Bipolar I disorder, most rec ent episode (or current) mixed, moderate F31.62 [place] [address] [address] [place] [id number] [place] [address] Mar, Chronic pain G89.29 [place] [address] [address] [place] [id number] [place] [address] Mar, Bipolar I disorder, most rec ent episode (or current) mixed, moderate F31.62 [place] [address] [address] [place] [id number] [place] [address] Feb, Bipolar I disorder, most rec ent episode (or current) mixed, moderate F31.62 [place] [address] [address] [place] [id number] [place] [address] Feb, Chronic pain G89.29 [place] [address] [address] [place] [id number] [address] [id number] Feb, Decubitus ulcer of right josselin t, stage 3 L89.893 and BMI 50.0-59.9, adult Z68.43 [place] [address] [address] [place] [id number] [address] [phone] Feb, Bipolar I disorder, most rec ent episode (or current) mixed, moderate F31.62 [place] [address] [address] [place] [id number] [address] [phone] Feb, [place] [address] [address] [place] [id number] [place] [phone] January, [facility] [address] [facility] [id number] [address] [address] January, Chronic pain G89.29 [facility] [address] [facility] [id number] [address] [phone] January, Bipolar I disorder, most rec ent episode (or current) mixed, moderate F31.62 [place] [address] [address] [place] [id number] [address] [phone] January, Bipolar I disorder, most rec ent episode (or current) mixed, moderate F31.62 [place] [address] [address] [facility] [id number] [address] [phone] Dec, Bipolar I disorder, most rec ent episode (or current) mixed, moderate F31.62 and BMI 50.0-59.9, adult Z68.43 [place] [address] [address] [place] [id number] [place] [address] Dec, Bipolar I disorder, most rec ent episode (or current) mixed, moderate F31.62 [place] [address] [address] [place] [id number] [address] [address] Dec, Chronic pain G89.29 [place] [address] [address] [place] [id number] [address] [address] Dec, DM neuro manif type II E11.4 9 ; Right flank pain R10.9 ; alf 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 Z79.891 ; Encounter for medication monitoring Z51.81 and BMI 50.0-59.9, adult Z68.43 [place] [address] [address] [place] [id number] [address] [id number] Dec, Bipolar I disorder, most rec ent episode (or current) mixed, moderate F31.62 [place] [address] [address] [place] [id number] [address] [address] Nov, Bipolar I disorder, most rec ent episode (or current) mixed, moderate F31.62 [place] [address] [address] [place] [id number] [address] [address] Nov, Chronic pain G89.29 [facility] [address] [facility] [id number] [address] [phone] Nov, Bipolar I disorder, most rec ent episode (or current) mixed, moderate F31.62 [facility] [address] [place] [id number] [address] [phone] Nov, Hypokalemia E87.6 [facility] [address] [place] [id number] [address] [address] Nov, Bipolar I disorder, most rec ent episode (or current) mixed, moderate F31.62 [place] [address] [address] [place] [id number] [place] [phone] Oct, Chronic pain G89.29 [facility] [address] [place] [id number] [address] [address] Oct, BMI 50.0-59.9, adult Z68.43 and Bipolar I disorder, most recent episode (or current) mixed, moderate F31.62 [facility] [address] [place] [id number] [place] [address] Oct, Bipolar I disorder, most rec ent episode (or current) mixed, moderate F31.62 [facility] [address] [place] [id number] [address] [phone] Oct, [facility] [address] [place] [id number] [address] [phone] Oct, Hypokalemia E87.6 [facility] [address] [place] [id number] [address] [phone] Oct, DM neuro manif type II E11.[address] [facility] [address] [place] [id number] [address] [address] Oct, Bipolar I disorder, most rec ent episode (or current) mixed, moderate F31.62 [facility] [address] [address] 20 Oct, 2017 Bipolar I disorder, most rec ent episode (or current) mixed, moderate F31.62 [place] [address] [address] 14 Oct, 2017 Hyperkalemia E87.5 ; Falling R29.6 ; BMI 50.0-59.9, adult Z68.43 and Acute left ankle pain M25.572 [place] [address] [address] 08 Oct, 2017 DM neuro manif type II E11.[address] [address] Oct, [place] [address] [address] Sep, Chronic pain G89.29 [place] [address] [address] Sep, [place] [address] [address] Sep, Bilateral primary osteoarthr itis of knee M17.[address] [address] Sep, Generalized edema R60.[address] [address] 16 Sep, 2017 Bipolar I disorder, most rec ent episode (or current) mixed, moderate F31.62 [place] [address] [address] 15 Sep, 2017 Hypoxia R09.02 ; Other hyper volemia E87.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 ; Anemia of chronic illness D63.8 and BMI 50.0- 59.9, adult Z68.43 [place] [address] [address] [facility] [id number] [address] [address] Sep, [place] [address] [address] [facility] [id number] [address] [place] [address] Sep, Bipolar I disorder, most rec ent episode (or current) mixed, moderate F31.62 [place] [address] [address] [place] [id number] [address] [address] Aug, Chronic pain G89.29 [place] [address] [address] [place] [id number] [address] [phone] Aug, Generalized edema R60.1 [place] [address] [address] [place] [id number] [place] [address] Aug, [place] [address] [place] [id number] [address] [address] Aug, [place] [address] [place] [id number] [address] [place] [phone] Aug, Bipolar I disorder, most rec ent episode (or current) mixed, moderate F31.62 [place] [address] [address] [place] [id number] [address] [place] [id number] Aug, Bipolar I disorder, most rec ent episode (or current) mixed, moderate F31.62 [place] [address] [address] [place] [id number] [address] [address] Aug, Chronic pain G89.29 [place] [address] [address] [place] [id number] [address] [place] [address] Jul, Bipolar I disorder, most rec ent episode (or current) mixed, moderate F31.62 [place] [address] [address] [place] [id number] [address] [place] [id number] Jul, Bipolar I disorder, most rec ent episode (or current) mixed, moderate F31.62 and BMI 60.0-69.9, adult Z68.44 [place] [address] [address] [place] [id number] [address] [place] [id number] Jul, Bipolar I disorder, most rec ent episode (or current) mixed, moderate F31.62 [facility] [address] [facility] [id number] [address] [id number] Jul, Chronic pain G89.29 [facility] [address] [facility] [id number] [address] [id number] Jul, Bipolar I disorder, most rec ent episode (or current) mixed, moderate F31.62 [facility] [address] [facility] [id number] [address] [phone] Jun, Polyneuropathy associated wi th underlying disease G63 and Diabetes E11.9 [facility] [address] [facility] [id number] [address] [phone] Jun, Bipolar I disorder, most rec ent episode (or current) mixed, moderate F31.62 [place] [id number] [place] [id number] [address] [phone] Jun, Chronic pain G89.29 [facility] [address] [facility] [id number] [address] [phone] May, Bipolar I disorder, most rec ent episode (or current) mixed, moderate F31.62 [facility] [address] [facility] [id number] [address] [phone] May, Bipolar I disorder, most rec ent episode (or current) mixed, moderate F31.62 [facility] [address] [facility] [id number] [address] [phone] May, Diabetic polyneuropathy asso ciated with type [address] [facility] [address] [facility] [id number] [address] [phone] 18 May, 2017 Bipolar I disorder, most rec ent episode (or current) mixed, moderate F31.62 [facility] [address] [facility] [id number] [address] [phone] 13 May, 2017 Bipolar I disorder, most rec ent episode (or current) mixed, moderate F31.62 [facility] [address] [id number] [address] [phone] May, Chronic pain G89.29 [facility] [address] [id number] [address] [phone] Apr, Bipolar I disorder, most rec ent episode (or current) mixed, moderate F31.62 [facility] [address] [id number] [address] [phone] Apr, [facility] [address] [id number] [address] [place] [phone] Apr, Chronic pain G89.29 and DM n euro manif type II E11.49 [facility] [address] [id number] [address] [phone] Apr, [facility] [address] [id number] [address] [phone] Apr, Bipolar I disorder, most rec ent episode (or current) mixed, moderate F31.62 [facility] [address] [id number] [address] [phone] Apr, Chronic pain G89.29 [facility] [address] [id number] [address] [id number] Apr, Iliotibial band syndrome, le ft M76.32 [facility] [address] [id number] [address] [phone] Apr, Bipolar I disorder, most rec ent episode (or current) mixed, moderate F31.62 [facility] [address] [id number] [address] [phone] Mar, Bipolar I disorder, most rec ent episode (or current) mixed, moderate F31.62 [facility] [address] [facility] [id number] [address] [phone] Mar, Bipolar I disorder, most rec ent episode (or current) mixed, moderate F31.62 [facility] [address] [facility] [id number] [address] [phone] Mar, [facility] [address] [facility] [id number] [address] [id number] Mar, Bipolar I disorder, most rec ent episode (or current) mixed, moderate F31.62 [facility] [address] [facility] [id number] [address] [place] [phone] Mar, Chronic pain G89.29 [facility] [address] [facility] [id number] [address] [id number] Mar, Bipolar I disorder, most rec ent episode (or current) mixed, moderate F31.62 [place] [address] [address] [facility] [id number] [address] [phone] Mar, Bipolar I disorder, most rec ent episode (or current) mixed, moderate F31.62 [place] [address] [address] [place] [id number] [address] [id number] Mar, Acute pain of left knee M25. 562 ; Left hip pain M25.552 ; Generalized edema R60.1 and Tongue swelling R22.0 [facility] [address] [facility] [id number] [address] [phone] Mar, [facility] [address] [facility] [id number] [address] [id number] Feb, Chronic pain G89.29 [facility] [address] [facility] [id number] [address] [phone] Feb, Diabetes E11.9 [facility] [address] [facility] [id number] [address] [place] [phone] January, Chronic pain G89.29 [facility] [address] [facility] [id number] [address] [phone] January, [facility] [address] [facility] [id number] [address] [place] [phone] January, Bipolar I disorder, most rec ent episode (or current) mixed, moderate F31.62 [facility] [address] [id number] [address] [id number] Dec, Bipolar I disorder, most rec ent episode (or current) mixed, moderate F31.62 [facility] [address] [id number] [address] [phone] Dec, Chronic pain G89.29 [facility] [address] [facility] [id number] [address] [phone] Dec, Bipolar I disorder, most rec ent episode (or current) mixed, moderate F31.62 [facility] [address] [facility] [id number] [address] [id number] Dec, Diabetes E11.9 ; Essential h ypertension I10 ; Chronic pain G89.29 and Morbid obesity E66.01 [facility] [address] [facility] [id number] [address] [id number] Dec, [facility] [address] [facility] [id number] [address] [id number] Dec, Bipolar I disorder, most rec ent episode (or current) mixed, moderate F31.62 [facility] [address] [facility] [id number] [address] [phone] Dec, Bipolar I disorder, most rec ent episode (or current) mixed, moderate F31.62 [facility] [address] [facility] [id number] [address] [place] [phone] Nov, Chronic pain G89.29 [facility] [address] [id number] [address] [phone] Nov, Bipolar I disorder, most rec ent episode (or current) mixed, moderate F31.62 [facility] [address] [facility] [id number] [address] [place] [phone] Nov, [facility] [address] [facility] [id number] [address] [id number] Nov, Bipolar I disorder, most rec ent episode (or current) mixed, moderate F31.62 [facility] [address] [facility] [id number] [address] [id number] Nov, Bipolar I disorder, most rec ent episode (or current) mixed, moderate F31.62 [facility] [address] [facility] [id number] [address] [place] [phone] Nov, [facility] [address] [facility] [id number] [address] [phone] Nov, [facility] [address] [facility] [id number] [address] [id number] Nov, [facility] [address] [facility] [id number] [address] [phone] Oct, Chronic pain G89.29 [facility] [address] [facility] [id number] [address] [phone] Oct, Bipolar I disorder, most rec ent episode (or current) mixed, moderate F31.62 [facility] [address] [facility] [id number] [address] [place] [id number] Oct, 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 [address] [facility] [id number] [address] [phone] Oct, [facility] [address] [facility] [id number] [address] [id number] Oct, Diabetes E11.9 [facility] [address] [facility] [id number] [address] [id number] Oct, Bipolar I disorder, most rec ent episode (or current) mixed, moderate F31.62 [facility] [address] [facility] [id number] [address] [place] [id number] Sep, Chronic pain G89.29 [facility] [address] [id number] [address] [id number] Sep, Chronic pain G89.29 [facility] [address] [facility] [id number] [address] [id number] Aug, Chronic pain G89.29 [facility] [address] [facility] [id number] [address] [phone] Jul, [facility] [address] [facility] [id number] [address] [place] [id number] Jul, Diabetes E11.9 [facility] [address] [facility] [id number] [address] [phone] Jul, Chronic pain G89.29 [facility] [address] [facility] [id number] [address] [id number] Jul, Bipolar I disorder, most rec ent episode (or current) mixed, moderate F31.62 [facility] [address] [facility] [id number] [address] [phone] Jun, Bipolar I disorder, most rec ent episode (or current) mixed, moderate F31.62 [facility] [address] [facility] [id number] [address] [place] [phone] Jun, [facility] [address] [facility] [id number] [address] [phone] Jun, Bipolar I disorder, most rec ent episode (or current) mixed, moderate F31.62 [facility] [address] [facility] [id number] [address] [phone] 30 May, 2016 Insomnia, unspecified type G 47.00 [facility] [address] [facility] [id number] [address] [phone] May, Bipolar I disorder, most rec ent episode (or current) mixed, moderate F31.62 [facility] [address] [facility] [id number] [address] [phone] 14 May, 2016 [place] [address] [facility] [id number] [address] [phone] 08 May, 2016 Bipolar I disorder, most rec ent episode (or current) mixed, moderate F31.62 [facility] [address] [facility] [id number] [address] [phone] May, Diabetes E11.9 and Essential hypertension I10 [place] [address] [address] [place] [id number] [address] [id number] Apr, Chronic pain G89.29 [place] [address] [address] [place] [id number] [address] [id number] Apr, Bipolar I disorder, most rec ent episode (or current) mixed, moderate F31.62 [place] [address] [address] [place] [id number] [address] [id number] Apr, [place] [address] [address] [place] [id number] [address] [place] [id number] Apr, [place] [address] [address] [place] [id number] [address] [phone] Mar, Chronic pain G89.29 ; Headac he, unspecified headache type R51 ; Neuropathy G62.9 ; Pain of right hip joint M25.551 and Essential hypertension I10 [place] [address] [address] [place] [id number] [address] [id number] Mar, Chronic pain G89.29 [place] [address] [address] [place] [id number] [address] [id number] Mar, Bipolar I disorder, most rec ent episode (or current) mixed, moderate F31.62 [place] [address] [address] [place] [id number] [address] [phone] Feb, Bipolar I disorder, most rec ent episode (or current) mixed, moderate F31.62 and Insomnia, unspecified type G47.00 [place] [address] [address] [facility] [id number] [address] [id number] Feb, Chronic pain G89.29 [facility] [address] [id number] [address] [phone] Feb, Bipolar I disorder, most rec ent episode (or current) mixed, moderate F31.62 [facility] [address] [id number] [address] [phone] January, Bipolar I disorder, most rec ent episode (or current) mixed, moderate F31.62 [facility] [address] [id number] [address] [id number] January, Chronic pain G89.29 [facility] [address] [id number] [address] [phone] January, Chronic pain G89.29 and Esse ntial hypertension I10 [facility] [address] [id number] [address] [id number] January, Bipolar I disorder, most rec ent episode (or current) mixed, moderate F31.62 [facility] [address] [id number] [address] [id number] Dec, [facility] [address] [id number] [address] [phone] Dec, [facility] [address] [id number] [address] [phone] Dec, [facility] [address] [id number] [address] [id number] Dec, [facility] [address] [id number] [address] [phone] Nov, Reactive airway disease J45. [address] [facility] [address] [id number] [address] [phone] Nov, [facility] [address] [id number] [address] [phone] Nov, [facility] [address] [facility] [id number] [address] [id number] Nov, [place] [address] [id number] Nov, [place] [address] [address] Nov, Onychomycosis B35.1 ; Hammer toe M20.40 ; [place] or callus L84 and DM neuro manif type II E11.49 [place] [address] [id number] Nov, Chronic pain G89.29 ; Leukoc ytosis D72.829 and Diabetes E11.9 [place] [address] [id number] Nov, [place] [address] [id number] Oct, Bronchitis J40 [place] [address] [phone] Oct, [place] [address] [id number] Oct, [place] [address] [address] Oct, Mastoiditis, unspecified lat erality H70.90 and Type 2 diabetes mellitus with complication E11.8 [place] [address] [id number] Sep, [place] [address] [address] Sep, Dysuria R30.0 ; Cough R05 ; Benign prostatic hyperplasia with lower urinary tract symptoms, unspecified morphology N40.1 ; Hypokalemia E87.6 and Eustachian tube dysfunction, unspecified laterality H69.80 [place] [address] [address] [place] [id number] [address] [id number] Sep, Moderate mixed bipolar I dis order F31.62 [facility] [address] [id number] [address] [phone] Sep, Hypokalemia E87.6 [facility] [address] [id number] [address] [phone] Sep, [facility] [address] [id number] [address] [id number] Sep, Upper respiratory tract infe ction, unspecified type J06.9 [facility] [address] [id number] [address] [phone] Aug, [facility] [address] [id number] [address] [phone] Aug, Dysuria R30.0 [facility] [address] [id number] [address] [phone] Aug, [facility] [address] [id number] [address] [phone] Jul, [facility] [address] [id number] [address] [phone] Jul, [facility] [address] [id number] [address] [id number] Jul, [facility] [address] [id number] [address] [phone] Jul, [facility] [address] [id number] [address] [id number] Jun, [facility] [address] [id number] [address] [phone] Jun, [facility] [address] [id number] [address] [phone] Jun, [facility] [address] [id number] [address] [phone] May, [facility] [address] [id number] [address] [phone] May, Bipolar I disorder, most rec ent episode (or current) mixed, moderate 296.62 [facility] [address] [id number] [address] [id number] May, [facility] [address] [id number] [address] [id number] May, Bipolar I disorder, most rec ent episode (or current) mixed, moderate 296.62 and Major depressive disorder, recurrent episode, severe, specified as with psychotic behavior 296.34 [facility] [address] [id number] [address] [phone] May, Bipolar I disorder, most rec ent episode (or current) mixed, moderate 296.62 [facility] [address] [id number] [address] [phone] May, [facility] [address] [facility] [id number] [address] [phone] Apr, [facility] [address] [id number] [address] [phone] Apr, [facility] [address] [facility] [id number] [address] [phone] Apr, Unspecified disorder of kidn ey and ureter 593.9 and Diabetes mellitus type [address], [address] [facility] [address] [id number] [address] [phone] Apr, [facility] [address] [id number] [address] [phone] Apr, [facility] [address] [id number] [address] [phone] Apr, [facility] [address] [id number] [address] [phone] Apr, [facility] [address] [id number] [address] [id number] Apr, Diabetes mellitus type II, u ncontrolled 250.02 [facility] [address] [facility] [id number] [address] [phone] Apr, [facility] [address] [facility] [id number] [address] [id number] Mar, [facility] [address] [facility] [id number] [address] [phone] Mar, [facility] [address] [facility] [id number] [address] [id number] Mar, [facility] [address] [facility] [id number] [address] [phone] Mar, Major depressive disorder, r ecurrent episode, severe, specified as with psychotic behavior 296.34 and Bipolar I disorder, most recent episode (or current) mixed, moderate 296.62 [facility] [address] [facility] [id number] [address] [id number] Mar, Diabetes 250.00 ; Anuria 788 .5 ; Nausea and vomiting 787.[address] [facility] [address] [facility] [id number] [address] [phone] Mar, Diabetes 250.00 [facility] [address] [facility] [id number] [address] [id number] Mar, [facility] [address] [facility] [id number] [address] [id number] Mar, Diabetes 250.00 [facility] [address] [facility] [id number] [address] [phone] Mar, [facility] [address] [facility] [id number] [address] [phone] Mar, [facility] [address] [facility] [id number] [address] [phone] Mar, [facility] [address] [facility] [id number] [address] [place] [phone] Mar, [facility] [address] [address] Mar, Bipolar I disorder, most rec ent episode (or current) mixed, moderate 296.62 and Major depressive disorder, recurrent episode, severe, specified as with psychotic behavior 296.[address] [address] Mar, Magnesium deficiency 275.2 ; Hypokalemia 276.8 ; Nausea & vomiting 787.01 and Diabetes mellitus type 2, uncontrolled 250.[address] [address] Feb, [address] [address] Feb, Bipolar I disorder, most rec ent episode (or current) mixed, moderate 296.[address] [address] Feb, Nausea and vomiting 787.01 ; Left elbow pain 719.42 ; Anuria 788.5 and Diabetes 250.[address] [address] Feb, [address] [address] Feb, Hypopotassemia 276.8 and Hyp okalemia 276.[address] [address] Feb, Hypopotassemia 276.8 and Hyp okalemia 276.[address] [address] Feb, Seborrheic keratoses 702.[address] [address] Feb, Hypopotassemia 276.8 and Low magnesium levels 275.[address] [address] January, [facility] [address] [id number] [address] [phone] January, [facility] [address] [id number] [address] [phone] January, [facility] [address] [id number] [address] [phone] January, Scalp lesion 709.9 [facility] [address] [id number] [address] [phone] January, [facility] [address] [id number] [address] [phone] Dec, Tear of medial cartilage or meniscus of knee, current 836.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 [facility] [address] [id number] [address] [phone] Dec, [facility] [address] [id number] [address] [phone] Dec, 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 [address] [id number] [address] [phone] Dec, [facility] [address] [id number] [address] [place] [phone] Dec, [facility] [address] [id number] [address] [phone] Nov, [facility] [address] [id number] [address] [id number] Nov, [facility] [address] [id number] [address] [phone] Nov, [facility] [address] [id number] [address] [phone] Nov, [facility] [address] [id number] [address] [place] [address], [place] [phone] 09 Nov, 2014 [facility] [address] [id number] [address] [place] [address], [place] [phone] Nov, 2014 [facility] [address] [id number] [address] [place] [address], [place] [id number] Nov, 2014 [facility] [address] [id number] [address] [place] [address], [place] [id number] Nov, 2014 [facility] [address] [id number] [address] [place] [address], [place] [id number] Nov, 2014 [facility] [address] [id number] [address] [place] [address], [place] [id number] Nov, 2014 [facility] [address] [id number] [address] [place] [address], [place] [address] Nov, 2014 [facility] [address] [id number] [address] [place] [address], [place] [id number] Nov, 2014 [facility] [address] [id number] [address] [place] [address], [place] [address] Oct, 2014 [facility] [address] [id number] [address] [place] [address], [place] [address] Oct, 2014 [facility] [address] [id number] [address] [place] [address], [place] [address] Oct, 2014 [facility] [address] [id number] [address] [place] [address], [place] [address] Oct, 2014 [facility] [address] [id number] [address] [place] [address], [place] [address] Oct, 2014 [facility] [address] [id number] [address] [place] [address], [place] [address] Oct, 2014 [facility] [address] [id number] [address] [address] Oct, 2014 [facility] [address] [id number] [address] [place] [address] Oct, [facility] [address] [id number] [address] [place] [address], [place] [address] Oct, [facility] [address] [id number] [address] [place] [address], [place] [address] Sep, [facility] [address] [id number] [address] [place] [address], [place] [address] Sep, [facility] [address] [id number] [address] [place] [address], [place] [address] Sep, [facility] [address] [id number] [address] [place] [address], [place] [address] Sep, [facility] [address] [id number] [address] [place] [address], [place] [address] Sep, [facility] [address] [id number] [address] [place] [address], [place] [address] Sep, [facility] [address] [id number] [address] [place] [address], [place] [address] Sep, [facility] [address] [id number] [address] [place] [address], [place] [address] Sep, [facility] [address] [id number] [address] [place] [address], [place] [address] Sep, [facility] [address] [id number] [address] [place] [address], [place] [address] Sep, [facility] [address] [id number] [address] [address] Sep, [facility] [address] [id number] [address] [place] [address], [place] [address] Sep, [facility] [address] [id number] [address] [place] [address] Sep, [facility] [address] [id number] [address] [place] [address], [place] [address] Sep, [facility] [address] [id number] [facility] [place] [address] Sep, [facility] [address] [id number] [address] [place] [address], [place] [address] Sep, [facility] [address] [id number] [address] [place] [address], [place] [address] Aug, [facility] [address] [id number] [address] [place] [address], [place] [address] Aug, [facility] [address] [id number] [address] [place] [address], [place] [address] Aug, [facility] [address] [id number] [address] [place] [address], [place] [address] Aug, [facility] [address] [id number] [address] [place] [address], [place] [address] Aug, [facility] [address] [id number] [address] [place] [address], [place] [address] Aug, [facility] [address] [id number] [address] [place] [address], [place] [address] Aug, [facility] [address] [id number] [address] [place] [address], [place] [address] Aug, [facility] [address] [id number] [address] [place] [address], [place] [address] Aug, [facility] [address] [id number] [address] [place] [address], [place] [address] Aug, [facility] [address] [id number] [address] [place] [address], [place] [address] Aug, [facility] [place] [id number] Aug, [facility] [address] [id number] [address] [place] [address], [place] [address] Aug, [facility] [address] [id number] [address] [place] [address], [place] [address] Aug, [facility] [address] [id number] [address] [place] [address], [place] [address] Aug, [facility] [address] [id number] [address] [place] [address], [place] [address] Aug, [facility] [address] [id number] [address] [place] [address], [place] [address] Aug, [facility] [address] [id number] [address] [place] [address], [place] [address] Aug, [facility] [address] [id number] [address] [place] [address], [place] [address] Aug, [facility] [address] [id number] [address] [place] [address], [place] [address] Aug, [facility] [address] [id number] [address] [place] [address], [place] [address] Aug, [facility] [address] [id number] [address] [place] [address], [place] [address] Aug, [facility] [address] [id number] [address] [place] [address], [place] [address] Aug, [facility] [address] [id number] [address] [place] [address], [place] [address] Aug, [facility] [address] [id number] [address] [place] [address], [place] [address] Aug, [facility] [address] [id number] [address] [place] [address], [place] [address] Aug, [facility] [address] [id number] [address] [place] [address], [place] [address] Aug, [facility] [address] [id number] [address] [place] [address], [place] [address] Aug, [facility] [address] [id number] [address] [place] [address], [place] [address] Aug, [facility] [address] [id number] [address] [place] [address], [place] [address] Aug, [facility] [address] [id number] [address] [place] [address], [place] [address] Jul, [facility] [address] [id number] [address] [place] [address], [place] [address] Jul, [facility] [address] [id number] [address] [place] [address], [place] [address] Jul, [facility] [address] [id number] [address] [place] [address], [place] [address] Jul, [facility] [address] [id number] [address] [place] [address], [place] [address] Jul, [facility] [address] [id number] [address] [place] [address], [place] [address] Jul, [facility] [address] [id number] [address] [place] [address], [place] [address] Jul, [facility] [address] [id number] [address] [place] [address], [place] [address] Jul, [facility] [address] [id number] [address] [place] [address], [place] [address] Jul, [facility] [address] [id number] [address] [place] [address], [place] [address] Jul, [facility] [address] [id number] [address] [place] [address], [place] [address] Jun, [facility] [address] [id number] [address] [place] [address], [place] [address] Jun, [facility] [address] [id number] [address] [place] [address], [place] [address] Jun, [facility] [address] [id number] [address] [place] [address], [place] [address] 16 Jun, 2014 [facility] [address] [id number] [address] [place] [address], [place] [address] 15 Jun, 2014 [facility] [address] [id number] [address] [place] [address], [place] [address] 15 Jun, 2014 [facility] [address] [id number] [address] [place] [address], [place] [address] Jun, [facility] [address] [id number] [address] [place] [address], [place] [address] Jun, [facility] [address] [id number] [address] [place] [address], [place] [address] Jun, [facility] [address] [id number] [address] [place] [address], [place] [address] Jun, [facility] [address] [id number] [address] [place] [address], [place] [address] 29 May, 2013 [facility] [address] [id number] [address] [place] [address], [place] [address] 29 Sep, 2013 [facility] [address] [id number] [address] [place] [address], [place] [address] 26 May, 2013 [facility] [address] [id number] [address] [place] [address], [place] [address] 26 Sep, 2013 [facility] [address] [id number] [address] [place] [address], [place] [address] 17 May, 2013 [facility] [address] [id number] [address] [place] [address], [place] [address] 17 Sep, 2013 [facility] [address] [id number] [address] [place] [address], [place] [address] 15 Sep, 2013 [facility] [address] [id number] [address] [place] [address], [place] [address] 15 Sep, 2013 [facility] [address] [id number] [address] [place] [address], [place] [address] 15 Sep, 2013 [facility] [address] [id number] [address] [place] [address], [place] [address] 15 Sep, 2013 [facility] [address] [id number] [address] [place] [address], [place] [address] May, [facility] [address] [id number] [facility] [place] [address] May, [facility] [address] [id number] [address] [place] [address], [place] [address] May, [facility] [address] [id number] [address] [place] [address], [place] [address] May, [facility] [address] [id number] [address] [place] [address], [place] [address] May, [facility] [address] [id number] [address] [place] [address], [place] [address] May, [facility] [address] [id number] [address] [place] [address], [place] [address] Apr, [facility] [address] [id number] [address] [place] [address], [place] [address] Apr, [facility] [address] [id number] [address] [place] [address], [place] [address] Apr, [facility] [address] [id number] [address] [place] [address], [place] [address] Apr, [facility] [address] [id number] [address] [place] [address], [place] [address] Apr, [facility] [address] [id number] [address] [place] [address], [place] [address] Apr, [facility] [address] [id number] [address] [place] [address], [place] [address] Apr, [facility] [address] [id number] [address] [place] [address], [place] [address] Apr, [facility] [address] [id number] [address] [place] [address], [place] [address] Apr, [facility] [address] [id number] [address] [place] [address], [place] [address] Apr, [facility] [address] [id number] [address] [place] [address], [place] [address] Apr, [facility] [address] [id number] [facility] [place] [address] Apr, [facility] [address] [id number] [address] [place] [address], [place] [address] Apr, [facility] [address] [id number] [address] [place] [address], [place] [address] Apr, [facility] [address] [id number] [address] [place] [address], [place] [address] Apr, [facility] [address] [id number] [address] [place] [address], [place] [address] Mar, [facility] [address] [id number] [address] [place] [address], [place] [address] Mar, [facility] [address] [id number] [address] [place] [address], [place] [address] Mar, [facility] [address] [id number] [address] [place] [address], [place] [address] Mar, [facility] [address] [id number] [address] [place] [address], [place] [address] Mar, [facility] [address] [id number] [address] [place] [address], [place] [address] Mar, [facility] [address] [id number] [address] [place] [address], [place] [address] Mar, [facility] [address] [id number] [address] [place] [address], [place] [address] Mar, [facility] [address] [id number] [address] [place] [address], [place] [address] Mar, [facility] [address] [id number] [address] [place] [address], [place] [address] Mar, [facility] [address] [id number] [address] [place] [address], [place] [address] Mar, [facility] [address] [id number] [facility] [place] [address] Mar, 2013 [facility] [address] [id number] [facility] [place] [address] Mar, 2013 [facility] [address] [id number] [facility] [place] [address] Mar, 2013 [facility] [address] [id number] [facility] [place] [address] Mar, 2013 [facility] [address] [id number] [facility] [place] [address] Mar, 2013 [facility] [address] [id number] [address] [place] [address], [place] [address] Mar, 2013 [facility] [address] [id number] [address] [place] [address], [place] [address] Mar, 2013 [facility] [address] [id number] [address] [place] [address], [place] [address] Feb, [facility] [address] [id number] [address] [place] [address], [place] [address] Feb, [facility] [address] [id number] [address] [place] [address], [place] [address] Feb, [facility] [address] [id number] [address] [place] [address], [place] [address] Feb, [facility] [address] [id number] [address] [place] [address], [place] [address] Feb, [facility] [address] [id number] [address] [place] [address], [place] [address] Feb, [facility] [place] [facility] [address] [id number] [address] [place] [address], [place] [address] Feb, [facility] [place] [facility] [address] [id number] [address] [place] [address], [place] [address] Feb, [facility] [place] [facility] [address] [id number] [address] [place] [address], [place] [address] Feb, [facility] [address] [id number] [facility] [place] [address] Feb, [facility] [address] [id number] [facility] [place] [address] Feb, [facility] [address] [id number] [facility] [place] [address] Feb, [facility] [place] [facility] [address] [id number] [address] [place] [address], [place] [address] Feb, [facility] [address] [id number] [facility] [place] [address] Feb, [facility] [address] [id number] [address] [place] [address], [place] [address] January, [facility] [address] [id number] [address] [place] [address], [place] [address] January, [facility] [address] [id number] [address] [place] [address], [place] [address] January, [facility] [address] [id number] [address] [place] [address], [place] [address] January, [facility] [address] [id number] [address] [place] [address], [place] [address] January, [facility] [address] [id number] [address] [place] [address], [place] [address] January, [facility] [address] [id number] [address] [place] [address], [place] [address] January, [facility] [address] [id number] [address] [place] [address], [place] [address] January, [facility] [address] [id number] [address] [place] [address], [place] [address] January, [facility] [place] [facility] [address] [id number] [facility] [place] [address] January, [facility] [place] [facility] [address] [id number] [place] [address] January, [facility] [address] [id number] [address] [place] [address], [place] [address] January, [facility] [address] [id number] [address] [place] [address], [place] [address] January, [facility] [address] [id number] [address] [place] [address], [place] [address] January, [facility] [address] [id number] [address] [place] [address], [place] [address] Dec, [facility] [address] [id number] [address] [place] [address], [place] [address] Dec, [facility] [address] [id number] [address] [place] [address], [place] [address] Dec, [facility] [address] [id number] [address] [place] [address], [place] [address] Dec, [facility] [address] [id number] [address] [place] [address], [place] [address] Dec, [facility] [address] [id number] [address] [place] [address], [place] [address] Dec, [facility] [address] [id number] [address] [place] [address], [place] [address] Dec, [facility] [address] [id number] [address] [place] [address], [place] [address] Dec, [facility] [address] [id number] [address] [place] [address], [place] [address] Dec, [facility] [address] [id number] [address] [place] [address], [place] [address] Dec, [facility] [address] [id number] [address] [place] [address], [place] [address] Nov, [facility] [address] [id number] [address] [place] [address], [place] [address] Nov, [facility] [address] [id number] [facility] [place] [address] Nov, [facility] [address] [id number] [address] [place] [address], [place] [address] Nov, [facility] [address] [id number] [facility] [place] [address] Nov, [facility] [address] [id number] [address] [place] [address], [place] [address] Nov, [facility] [address] [id number] [address] [place] [address], [place] [address] Nov, [facility] [address] [id number] [address] [place] [address], [place] [address] Nov, [facility] [address] [id number] [address] [place] [address], [place] [address] Nov, [facility] [address] [id number] [address] [place] [address], [place] [address] Nov, [facility] [address] [id number] [address] [place] [address], [place] [address] Oct, [facility] [address] [id number] [address] [place] [address], [place] [address] Oct, [facility] [address] [id number] [address] [place] [address], [place] [address] Oct, [facility] [address] [id number] [address] [place] [address], [place] [address] Oct, [facility] [address] [id number] [address] [place] [address], [place] [address] Oct, [facility] [address] [id number] [address] [place] [address], [place] [address] Oct, [facility] [address] [id number] [address] [place] [address], [place] [address] 14 Oct, 2013 [facility] [address] [id number] [address] [place] [address], [place] [address] 14 Oct, 2013 [facility] [address] [id number] [address] [place] [address], [place] [address] 05 Oct, 2013 [facility] [address] [id number] [address] [place] [address], [place] [address] 05 Oct, 2013 [facility] [address] [id number] [address] [place] [address], [place] [address] Oct, [facility] [address] [id number] [address] [place] [address], [place] [address] Oct, [facility] [address] [id number] [address] [place] [address], [place] [address] Oct, [facility] [address] [id number] [address] [place] [address], [place] [address] Oct, [facility] [address] [id number] [address] [place] [address], [place] [address] Sep, [facility] [address] [id number] [address] [place] [address], [place] [address] Sep, [facility] [address] [id number] [address] [place] [address], [place] [address] Sep, [facility] [address] [id number] [address] [place] [address], [place] [address] 15 Sep, 2013 [facility] [address] [id number] [address] [place] [address], [place] [address] Sep, [facility] [address] [id number] [address] [place] [address], [place] [address] Sep, [facility] [address] [id number] [address] [place] [address], [place] [address] Sep, [facility] [address] [id number] [address] [place] [address], [place] [address] Sep, [facility] [address] [id number] [address] [place] [address], [place] [address] Sep, [facility] [address] [id number] [address] [place] [address], [place] [address] 08 Sep, 2013 [facility] [address] [id number] [address] [place] [address], [place] [address] Aug, [facility] [address] [id number] [address] [place] [address], [place] [address] Aug, [facility] [address] [id number] [address] [place] [address], [place] [address] Jul, [facility] [address] [id number] [address] [place] [address], [place] [address] Jul, [facility] [address] [id number] [address] [place] [address], [place] [address] Jul, [facility] [address] [id number] [address] [place] [address], [place] [address] Jul, [facility] [address] [id number] [address] [place] [address], [place] [address] Jul, [facility] [address] [id number] [address] [place] [address], [place] [address] Jul, [facility] [address] [id number] [address] [place] [address], [place] [address] Jul, [facility] [address] [id number] [address] [place] [address], [place] [address] Jul, [facility] [address] [id number] [address] [place] [address] Jul, [facility] [address] [id number] [address] [place] [address], [place] [address] Jul, [facility] [address] [id number] [address] [place] [address], [place] [address] Jul, [facility] [address] [id number] [address] [place] [address], [place] [address] Jul, [facility] [address] [id number] [address] [place] [address], [place] [address] 06 Jul, 2012 [facility] [address] [id number] [address] [place] [address], [place] [address] 05 Jul, 2012 [facility] [address] [id number] [address] [place] [address], [place] [address] Jul, 2012 [facility] [address] [id number] [address] [place] [address], [place] [address] Jul, 2012 [facility] [address] [id number] [address] [place] [address], [place] [address] Jul, 2012 [facility] [address] [id number] [address] [place] [address], [place] [address] Jul, 2012 [facility] [address] [id number] [address] [place] [address], [place] [address] Jul, 2012 [facility] [address] [id number] [address] [place] [address], [place] [address] 16 Jun, 2012 [facility] [address] [id number] [address] [place] [address], [place] [address] 16 Jun, 2012 [facility] [address] [id number] [address] [place] [address], [place] [address] 16 Jun, 2012 [facility] [address] [id number] [address] [place] [address], [place] [address] 16 Jun, 2012 [facility] [address] [id number] [address] [place] [address], [place] [address] 16 Jun, 2012 [facility] [address] [id number] [address] [address] 16 Jun, 2012 [facility] [address] [id number] [address] [place] [address], [place] [address] 10 Jun, 2012 [facility] [address] [id number] [address] [place] [address], [place] [address] 10 Jun, 2012 [facility] [address] [id number] [address] [address] 09 Jun2012 [facility] [address] [id number] [address] [place] [address], [place] [address] Jun, [facility] [address] [id number] [address] [place] [address], [place] [address] Jun, [facility] [address] [id number] [address] [place] [address], [place] [address] May, 2012 [facility] [address] [id number] [address] [place] [address], [place] [address] 25 May, 2012 [facility] [address] [id number] [address] [place] [address], [place] [address] 19 May, 2013 [facility] [address] [id number] [address] [place] [address], [place] [address] 17 May, 2013 [facility] [address] [id number] [address] [place] [address], [place] [address] May, [facility] [address] [id number] [address] [place] [address], [place] [address] May, [facility] [address] [id number] [address] [place] [address], [place] [address] May, [facility] [address] [id number] [address] [place] [address], [place] [address] 05 May, 2013 [facility] [address] [id number] [address] [place] [address], [place] [address] Apr, [facility] [address] [id number] [address] [place] [address], [place] [address] Apr, [facility] [address] [id number] [address] [place] [address], [place] [address] Apr, [facility] [address] [id number] [address] [place] [address], [place] [address] Apr, [facility] [address] [id number] [address] [place] [address], [place] [address] Apr, [facility] [address] [id number] [address] [place] [address], [place] [address] Mar, [facility] [address] [id number] [address] [place] [address], [place] [address] Mar, [facility] [address] [id number] [address] [place] [address], [place] [address] Mar, [facility] [address] [id number] [address] [place] [address], [place] [address] Mar, [facility] [address] [id number] [address] [place] [address], [place] [address] Mar, [facility] [address] [id number] [address] [place] [address], [place] [address] Mar, [facility] [address] [id number] [address] [place] [address], [place] [address] Mar, [facility] [address] [id number] [address] [place] [address], [place] [address] Mar, [facility] [address] [id number] [address] [place] [address], [place] [address] Feb, [facility] [address] [id number] [address] [place] [address], [place] [address] Feb, [facility] [address] [id number] [address] [place] [address], [place] [address] January, [facility] [address] [id number] [address] [place] [address], [place] [address] January, [facility] [address] [id number] [address] [place] [address], [place] [address] Dec, [facility] [address] [id number] [address] [place] [address], [place] [address] Dec, [facility] [address] [id number] [address] [place] [address], [place] [address] Nov, [facility] [address] [id number] [address] [place] [address], [place] [address] Nov, [facility] [address] [id number] [address] [place] [address], [place] [address] Nov, [facility] [address] [id number] [address] [place] [address], [place] [address] Nov, [facility] [address] [id number] [address] [place] [address], [place] [address] Oct, [facility] [address] [id number] [address] [place] [address], [place] [address] Oct, [facility] [address] [id number] [address] [place] [address], [place] [address] Oct, [facility] [address] [id number] [address] [place] [address], [place] [address] Oct, [facility] [address] [id number] [address] [place] [address], [place] [address] 16 Oct, 2012 [facility] [address] [id number] [address] [place] [address], [place] [address] 14 Oct, 2012 [facility] [address] [id number] [address] [place] [address], [place] [address] 08 Oct, 2012 [facility] [address] [id number] [address] [place] [address], [place] [address] 07 Oct, 2012 [facility] [address] [id number] [address] [place] [address], [place] [address] Oct, [facility] [address] [id number] [address] [place] [address], [place] [address] Sep, [facility] [address] [id number] [address] [place] [address], [place] [address] Sep, [facility] [address] [id number] [address] [place] [address], [place] [address] Sep, [facility] [address] [id number] [address] [place] [address], [place] [address] Sep, [facility] [address] [id number] [address] [place] [address], [place] [address] 17 Sep, 2012 [facility] [address] [id number] [address] [place] [address], [place] [address] 10 Sep, 2012 [facility] [address] [id number] [address] [place] [address], [place] [address] 09 Sep, 2012 [facility] [address] [id number] [address] [place] [address], [place] [address] Sep, [facility] [address] [id number] [address] [place] [address], [place] [address] Aug, [facility] [address] [id number] [address] [place] [address], [place] [address] Aug, [facility] [address] [id number] [address] [place] [address], [place] [address] Aug, [facility] [address] [id number] [address] [place] [address], [place] [address] Aug, [facility] [address] [id number] [address] [place] [address], [place] [address] Aug, [facility] [address] [id number] [address] [place] [address], [place] [address] Aug, [facility] [address] [id number] [address] [place] [address], [place] [address] Aug, [facility] [address] [id number] [address] [place] [address], [place] [address] Aug, [facility] [address] [id number] [address] [place] [address], [place] [address] Jul, [facility] [address] [id number] [address] [place] [address], [place] [address] Jul, [facility] [address] [id number] [address] [place] [address], [place] [address] Jul, [facility] [address] [id number] [address] [place] [address], [place] [address] Jul, [facility] [address] [id number] [address] [place] [address], [place] [address] Jul, [facility] [address] [id number] [address] [place] [address], [place] [address] Jul, [facility] [address] [id number] [address] [place] [address], [place] [address] Jun, [facility] [address] [id number] [address] [place] [address], [place] [address] Jun, [facility] [address] [id number] [address] [place] [address], [place] [address] Jun, [facility] [address] [id number] [address] [place] [address], [place] [address] Jun, [facility] [address] [id number] [address] [place] [address], [place] [address] Jun, [facility] [address] [id number] [address] [place] [address], [place] [address] Jun, [facility] [address] [id number] [address] [place] [address], [place] [address] Jun, [facility] [address] [id number] [address] [place] [address], [place] [address] Jun, [facility] [address] [id number] [address] [place] [address], [place] [address] 10 Jun, 2012 [facility] [address] [id number] [address] [place] [address], [place] [address] 26 May, 2012 [facility] [address] [id number] [address] [place] [address], [place] [address] 24 May, 2012 [facility] [address] [id number] [address] [place] [address], [place] [address] 18 May, 2012 [facility] [address] [id number] [address] [place] [address], [place] [address] Apr, [facility] [address] [id number] [address] [place] [address], [place] [address] Apr, [facility] [address] [id number] [address] [place] [address], [place] [address] Apr, [facility] [address] [id number] [address] [place] [address], [place] [address] Apr, [facility] [address] [id number] [address] [place] [address], [place] [address] Apr, [facility] [address] [id number] [address] [place] [address], [place] [address] Apr, [facility] [address] [id number] [address] [place] [address], [place] [address] Mar, [facility] [address] [id number] [address] [place] [address], [place] [address] Mar, [facility] [address] [id number] [address] [place] [address], [place] [address] Mar, [facility] [address] [id number] [address] [place] [address], [place] [address] Mar, [facility] [address] [id number] [address] [place] [address], [place] [address] Feb, [facility] [address] [id number] [address] [place] [address], [place] [address] Feb, [facility] [address] [id number] [address] [place] [address], [place] [address] Feb, [facility] [address] [id number] [address] [place] [address], [place] [address] Feb, [facility] [address] [id number] [address] [place] [address], [place] [address] Feb, [facility] [address] [id number] [address] [place] [address], [place] [address] January, [facility] [address] [id number] [address] [place] [address], [place] [address] January, [facility] [address] [id number] [address] [place] [address], [place] [address] January, [facility] [address] [id number] [address] [place] [address], [place] [address] January, [facility] [address] [id number] [address] [place] [address], [place] [address] January, [facility] [address] [id number] [address] [place] [address], [place] [address] January, [facility] [address] [id number] [address] [place] [address], [place] [address] Dec, [facility] [address] [id number] [address] [place] [address], [place] [address] Dec, [facility] [address] [id number] [address] [place] [address], [place] [address] Dec, [facility] [address] [id number] [address] [place] [address], [place] [address] Dec, [facility] [address] [id number] [address] [place] [address], [place] [address] Dec, [facility] [address] [id number] [address] [place] [address], [place] [address] Nov, [facility] [address] [id number] [address] [place] [address], [place] [address] Nov, [facility] [address] [id number] [address] [place] [address], [place] [address] Nov, [facility] [address] [id number] [address] [place] [address], [place] [address] Nov, [facility] [address] [id number] [address] [place] [address], [place] [address] Oct, [facility] [address] [id number] [address] [place] [address], [place] [address] Oct, [facility] [address] [id number] [address] [place] [address], [place] [address] Oct, [facility] [address] [id number] [address] [place] [address], [place] [address] Oct, [facility] [address] [id number] [address] [place] [address], [place] [address] Oct, [facility] [address] [id number] [address] [place] [address], [place] [address] Sep, [facility] [address] [id number] [address] [place] [address], [place] [address] Sep, [facility] [address] [id number] [address] [place] [address], [place] [address] Sep, [facility] [address] [id number] [address] [place] [address], [place] [address] Sep, [facility] [address] [id number] [address] [place] [address], [place] [address] Sep, [facility] [address] [id number] [address] [place] [address], [place] [address] Sep, [facility] [address] [id number] [address] [place] [address], [place] [address] Aug, [facility] [address] [id number] [address] [place] [address], [place] [address] Aug, [facility] [address] [id number] [address] [place] [address], [place] [address] Aug, [facility] [address] [id number] [address] [place] [address], [place] [address] Jul, [facility] [address] [id number] [address] [place] [address], [place] [address] Jul, [facility] [address] [id number] [address] [place] [address], [place] [address] Jul, [facility] [address] [id number] [address] [place] [address], [place] [address] Jul, [facility] [address] [id number] [address] [place] [address], [place] [address] 31 Jun, 2011 [facility] [address] [id number] [address] [place] [address], [place] [address] 31 Jun, 2011 [facility] [address] [id number] [address] [place] [address], [place] [address] 18 Jun, 2011 [facility] [address] [id number] [address] [place] [address], [place] [address] 10 Jun, 2011 [facility] [address] [id number] [address] [place] [address], [place] [address] 10 Jun, 2011 [facility] [address] [id number] [address] [place] [address], [place] [address] 10 Jun, 2011 [facility] [address] [id number] [address] [place] [address], [place] [address] 11 Mar, 2011 [facility] [address] [id number] [address] [place] [address], [place] [address] 18 Dec, 2010 [facility] [address] [id number] [address] [place] [address], [place] [address] Dec, [facility] [address] [id number] [address] [place] [address], [place] [address] Nov, [facility] [address] [id number] [address] [place] [address], [place] [address] 16 Nov, 2010 [facility] [address] [id number] [address] [place] [address], [place] [address] Sep, [facility] [address] [id number] [address] [place] [address], [place] [address] Aug, [facility] [address] [id number] [address] [place] [address], [place] [address] Aug, [facility] [address] [id number] [address] [place] [address], [place] [address] Aug, [facility] [address] [id number] [address] [place] [address], [place] [address] Aug, [facility] [address] [id number] [address] [place] [address], [place] [address] 27 Aug, 2010 [facility] [address] [id number] [address] [place] [address], [place] [address] 14 Aug, 2010 [facility] [address] [id number] [address] [place] [address], [place] [address] 08 Aug, 2010 [facility] [address] [id number] [address] [place] [address], [place] [address] 08 Aug, 2010 [facility] [address] [id number] [address] [place] [address], [place] [address] 07 Aug, 2010 [facility] [address] [id number] [address] [place] [address], [place] [address] 06 Aug, 2010 [facility] [address] [id number] [address] [place] [address], [place] [address] 06 Aug, 2010 [facility] [address] [id number] [address] [place] [address], [place] [address] Aug, [facility] [address] [id number] [address] [place] [address], [place] [address] 30 Jul, 2010 [facility] [address] [id number] [address] [place] [address], [place] [address] 30 Jul, 2010 [facility] [address] [id number] [address] [place] [address], [place] [address] 30 Jul, 2010 [facility] [address] [id number] [address] [place] [address], [place] [address] 17 Jul, 2010 [facility] [address] [id number] [address] [place] [address], [place] [address] 08 Jul, 2010 [facility] [address] [id number] [address] [place] [address], [place] [address] Jul, [facility] [address] [id number] [address] [place] [address], [place] [address] 24 Jun, 2010 [facility] [address] [id number] [address] [place] [address], [place] [address] Jun, [facility] [address] [id number] [address] [place] [address], [place] [address] 19 Jun, 2010 [facility] [address] [id number] [address] [place] [address], [place] [address] 13 Jun, 2010 [facility] [address] [id number] [address] [place] [address], [place] [address] 16 Apr, 2010 [facility] [address] [id number] [address] [place] [address], [place] [address] Mar, [facility] [address] [id number] [address] [place] [address], [place] [address] Feb, [facility] [address] [id number] [address] [place] [address], [place] [address] January, [facility] [address] [id number] [address] [place] [address], [place] [address] 15 Dec, 2009 [facility] [address] [id number] [address] [address] Nov, [facility] [address] [id number] [address] [place] [address], [place] [address] Aug, [facility] [address] [id number] [address] [address] Aug, [facility] [address] [id number] [address] [phone] Aug, [facility] [address] [id number] [address] [address] Jul, [facility] [address] [id number] [address] [address] Jul, [facility] [address] [id number] [address] [place] [id number] Jul, [facility] [address] [id number] [address] [address] 30 Jun, 2009 [facility] [address] [id number] [address] [place] [address] Jun, [facility] [address] [id number] [address] [phone] Jun, [facility] [address] [id number] [address] [phone] Jun, [facility] [address] [facility] [id number] [address] [id number] Jun, [facility] [address] [facility] [id number] [address] [phone] Jun, [facility] [address] [facility] [id number] [address] [place] [phone] Apr, [facility] [address] [facility] [facility] [id number] [address] [id number] Apr, [facility] [address] [facility] [id number] [address] [phone] Feb, [facility] [address] [facility] [id number] [address] [phone] January, [facility] [address] [facility] [id number] [address] [phone] Dec, IMMUNIZATIONS No Known Immunizations SOCIAL HISTORY [...] inability to urinate 09/16/15 Hospitalization History [facility] inpatient mental health ea rly 2000's Hospitalization History hyperkalemia 10/2017 Hospitalization History fluid in lung
--- NOTE | 2020-03-01 17:14 | Diagnostic Imaging Report ---
INDICATION: Chest tightness for one week. EXAMINATION: Upright portable chest was obtained. FINDINGS: Normal heart size and vascularity. The left heart border is obscured. This could be due to pericardial fat. Lingular infiltrate is a possibility. The right lung is clear. There is no effusion or pneumothorax. IMPRESSION: There is increased density in the left lung compared to 09/28/2017 study. This may be secondary to a lingular infiltrate. Follow-up PA and lateral chest would be helpful for better evaluation of this. Dictated by: Dictated on workstation # [id number]
--- OUTSIDE RECORDS SUMMARY | 2020-03-01 17:14 | XMS REPORT ---
Author Michele Fuentes Organization [facility] Address [address] [place] [address] Care Team Providers Care Lumber Scaler Name Role Phone TOBY ROSELINE Unavailable PROBLEMS Type Condition ICD9-CM Code SOI86-OA Code Onset Dates Condition S tatus SNOMED Code Problem Cough R05 Active 42733071 Problem Benign prostatic hyperplasia with lower urinary tract symptoms, unspecified morphology N40.1 Active 33419 6007 Problem Eustachian tube dysfunction, unspecified laterality H69.80 Active 12016887 Problem Chronic pain G89.29 Active 2867415 1 Problem DM neuro manif type II E11.49 Active 75278738 Problem Diabetes E11.9 Active 57653853 Problem Leukocytosis D72.829 Active 9697563 06 Problem Falling R29.6 Active 866920259 Problem Pressure ulcer of other site, stage 3 L89.893 Active 438327138 Problem 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 Active 997517941 Problem Eye exam abnormal R93.8 Active 16 2576542 Problem Dysuria R30.0 Active 59443272 Problem Hypokalemia E87.6 Active 76020440 Problem Morbid obesity E66.01 Active 77162 6002 Problem Anxiety F41.9 Active 48183271 Problem Diabetic polyneuropathy associated with type 2 d iabetes mellitus E11.42 Active 46298614 Problem Essential hypertension I10 Active 76338671 Problem Bilateral primary osteoarthritis of knee M17.0 Active 391156579 Problem Polyneuropathy associated with underlying disease G63 Active 633143749 Problem Anemia of chronic illness D63.8 Acti ve 976762675 Problem Lymphocytosis D72.820 Active 996215 09 Problem Retinal edema H35.81 Active 824258 6 Problem Chronic lymphocytic leukemia C91.10 A ctive 27291732 Problem Bipolar disorder, in partial remission, most rec ent episode depressed F31.75 Active 55896531 Problem Pure hypercholesterolemia E78.00 Acti ve 153903192 Problem Primary osteoarthritis of right knee M17.11 Active 376263840680847 Problem Bipolar disorder F31.9 Active 137 33808 Problem Bipolar I disorder, most recent episode (or curr ent) mixed, moderate F31.62 Active 38827335 Problem Chronic diastolic (congestive) heart failure I50.3 2 Active 153202177 Problem Reactive airway disease J45.909 Active 598897866191 Problem Insomnia, unspecified type G47.00 Act sharon 159519377 Problem Other chronic pain G89.29 Active 8 0365921 Problem Other iron deficiency anemia D50.8 A ctive 16193597 Problem Mild cognitive impairment G31.84 Acti ve 879484678 Problem Skin cancer C44.90 Active 13807403 7 ALLERGIES No Information ENCOUNTERS Encounter Location Date Diagnosis [facility] [address] [address] Jun, [facility] [address] [place] [id number] [place] [address] Jun, [facility] [address] [place] [id number] [place] [address] May, [facility] [address] [place] [id number] [place] [address] May, [place] [address] [place] [id number] [place] [address] Apr, Chronic pain G89.29 and Bipo lar disorder F31.9 [facility] [address] [place] [id number] [place] [address] Mar, Bipolar disorder F31.9 and C hronic pain G89.29 [facility] [address] [facility] [id number] [address] [place] [address] Feb, Bipolar disorder F31.9 [facility] [address] [place] [id number] [place] [address] Feb, Cellulitis of right upper ex tremity L03.113 and Skin abrasion T14.8XXA [facility] [address] [place] [id number] [place] [address] Feb, Bipolar disorder, in partial remission, most recent episode depressed F31.75 and Mild cognitive impairment G31.84 [facility] [address] [id number] [address] [place] [address] Feb, Chronic pain G89.29 [facility] [address] [id number] [address] [place] [address] Feb, Bipolar disorder, in partial remission, most recent episode depressed F31.75 and Mild cognitive impairment G31.84 [facility] [address] [id number] [address] [place] [address] January, Bipolar disorder, in partial remission, most recent episode depressed F31.75 and Mild cognitive impairment G31.84 [facility] [address] [id number] [address] [place] [address] January, Chronic pain G89.29 and Bipo lar disorder F31.9 [facility] [address] [id number] [address] [place] [address] January, Bipolar disorder, in partial remission, most recent episode depressed F31.75 and Mild cognitive impairment G31.84 [facility] [address] [id number] [address] [place] [address] Dec, [facility] [address] [id number] [address] [place] [address] Dec, Chronic pain G89.29 and Bipo lar disorder F31.9 [facility] [address] [id number] [address] [place] [address] Dec, Edema of both lower extremit ies R60.0 [facility] [address] [id number] [address] [place] [address] Dec, Bipolar disorder F31.9 [facility] [address] [id number] [address] [place] [address] Dec, Bipolar disorder, in partial remission, most recent episode depressed F31.75 and Mild cognitive impairment G31.84 [place] [address] [facility] [id number] [address] [place] [address] Nov, [place] [address] [facility] [id number] [address] [place] [address] Nov, Chronic pain G89.29 [place] [address] [facility] [id number] [address] [place] [address] Nov, Bipolar disorder, in partial remission, most recent episode depressed F31.75 and Mild cognitive impairment G31.84 [place] [address] [place] [id number] [place] [address] Nov, Bipolar disorder F31.9 [place] [address] [place] [id number] [place] [address] 04 Nov, 2018 Encounter for Medicare annua [...] unspecified morphology N40.1 and Essential hypertension I10 [place] [address] [place] [id number] [address] [place] [address] Oct, Chronic pain G89.29 [place] [address] [place] [id number] [place] [address] Oct, Diabetes E11.9 [place] [address] [facility] [id number] [address] [place] [address] Oct, Bipolar I disorder, most rec ent episode (or current) mixed, moderate F31.62 and Mild cognitive impairment G31.84 [place] [address] [place] [id number] [place] [address] Oct, Bipolar I disorder, most rec ent episode (or current) mixed, moderate F31.62 and Mild cognitive impairment G31.84 [place] [address] [facility] [id number] [address] [place] [address] Sep, Bipolar I disorder, most rec ent episode (or current) mixed, moderate F31.62 and Mild cognitive impairment G31.84 [place] [address] [place] [id number] [place] [address] Sep, [place] [address] [place] [id number] [place] [address] Sep, Diabetes E11.9 ; Hypoxia R09 .02 ; Hyperglycemia R73.9 ; Therapeutic drug monitoring Z51.81 ; BMI 50.0-59.9, adult Z68.43 and Skin cancer C44.90 [place] [address] [place] [id number] [place] [address] Sep, Chronic pain G89.29 [place] [address] [place] [id number] [place] [address] Sep, Bipolar I disorder, most rec ent episode (or current) mixed, moderate F31.62 [place] [address] [place] [id number] [place] [address] Sep, [place] [address] [place] [id number] [place] [address] Sep, [place] [address] [place] [id number] [place] [address] Aug, Chronic pain G89.29 [place] [address] [facility] [id number] [address] [place] [address] Aug, Bipolar I disorder, most rec ent episode (or current) mixed, moderate F31.62 [place] [address] [place] [id number] [place] [address] Aug, Bipolar I disorder, most rec ent episode (or current) mixed, moderate F31.62 and Mild cognitive impairment G31.84 [place] [address] [place] [id number] [place] [address] Jul, [facility] [address] [id number] [address] [place] [address] Jul, Chronic pain G89.29 [facility] [address] [id number] [address] [place] [address] Jul, Bipolar I disorder, most rec ent episode (or current) mixed, moderate F31.62 and Mild cognitive impairment G31.84 [facility] [address] [id number] [address] [place] [address] Jul, Bipolar I disorder, most rec ent episode (or current) mixed, moderate F31.62 and MCI (mild cognitive impairment) G31.84 [facility] [address] [id number] [address] [place] [address] Jul, [facility] [address] [id number] [address] [place] [address] Jul, [facility] [address] [id number] [address] [place] [address] Jul, Bipolar I disorder, most rec ent episode (or current) mixed, moderate F31.62 [facility] [address] [id number] [address] [place] [address] Jul, Chronic pain G89.29 [facility] [address] [id number] [address] [place] [address] Jun, Bipolar I disorder, most rec ent episode (or current) mixed, moderate F31.62 [facility] [address] [id number] [address] [place] [address] Jun, Pre-procedure lab exam Z01.8 12 [facility] [address] [id number] [address] [place] [address] Jun, [facility] [address] [id number] [place] [id number] Jun, [facility] [address] [id number] [address] [place] [address] Jun, [place] [address] [facility] [id number] [address] [place] [address] Jun, Forgetfulness R68.89 ; Pre-s yncope R55 ; Localized edema R60.0 ; Other iron deficiency anemia D50.8 and BMI 50.0-59.9, adult Z68.43 [place] [address] [place] [id number] [place] [address] Jun, Chronic pain G89.29 [place] [address] [place] [id number] [place] [address] Jun, Chronic pain G89.29 [place] [address] [place] [id number] [place] [address] Jun, Bipolar I disorder, most rec ent episode (or current) mixed, moderate F31.62 [place] [address] [place] [id number] [place] [address] May, Chronic pain G89.29 [place] [address] [place] [id number] [place] [address] Apr, [place] [address] [place] [id number] [place] [address] Apr, Chronic pain G89.29 [place] [address] [place] [id number] [place] [address] Apr, Primary osteoarthritis of ri ght knee M17.11 [place] [address] [facility] [id number] [address] [place] [address] Mar, [place] [address] [place] [id number] [place] [address] Mar, BMI 50.0-59.9, adult Z68.43 and Bipolar disorder, in partial remission, most recent episode depressed F31.75 [place] [address] [place] [id number] [place] [address] Mar, Diabetes E11.9 ; Pure hyperc holesterolemia E78.00 ; Essential hypertension I10 ; Nausea with vomiting, unspecified R11.2 and Headache, unspecified headache type R51 [place] [address] [address] Mar, Bipolar I disorder, most rec ent episode (or current) mixed, moderate F31.62 [place] [address] [address] Mar, Bipolar I disorder, most rec ent episode (or current) mixed, moderate F31.62 [place] [address] [address] Mar, Chronic pain G89.29 [place] [address] [address] Mar, Bipolar I disorder, most rec ent episode (or current) mixed, moderate F31.62 [place] [address] [address] Feb, Bipolar I disorder, most rec ent episode (or current) mixed, moderate F31.62 [place] [address] [address] Feb, Chronic pain G89.29 [place] [address] [place] [id number] [place] [address] Feb, Decubitus ulcer of right josselin t, stage 3 L89.893 and BMI 50.0-59.9, adult Z68.43 [place] [address] [address] Feb, Bipolar I disorder, most rec ent episode (or current) mixed, moderate F31.62 [place] [address] [place] [id number] [place] [address] Feb, [place] [address] [place] [id number] [place] [address] January, [place] [address] [facility] [id number] [address] [place] [address] January, Chronic pain G89.29 [facility] [address] [facility] [id number] [address] [place] [address] January, Bipolar I disorder, most rec ent episode (or current) mixed, moderate F31.62 [place] [address] [place] [id number] [place] [address] January, Bipolar I disorder, most rec ent episode (or current) mixed, moderate F31.62 [place] [address] [place] [id number] [place] [address] Dec, Bipolar I disorder, most rec ent episode (or current) mixed, moderate F31.62 and BMI 50.0-59.9, adult Z68.43 [place] [address] [place] [id number] [place] [address] Dec, Bipolar I disorder, most rec ent episode (or current) mixed, moderate F31.62 [place] [address] [place] [id number] [place] [address] Dec, Chronic pain G89.29 [place] [address] [place] [id number] [place] [address] Dec, DM neuro manif type II E11.4 9 ; Right flank pain R10.9 ; custodial 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 Z79.891 ; Encounter for medication monitoring Z51.81 and BMI 50.0-59.9, adult Z68.43 [place] [address] [facility] [id number] [address] [place] [address] Dec, Bipolar I disorder, most rec ent episode (or current) mixed, moderate F31.62 [place] [address] [place] [id number] [place] [address] Nov, Bipolar I disorder, most rec ent episode (or current) mixed, moderate F31.62 [place] [address] [place] [id number] [place] [address] Nov, Chronic pain G89.29 [facility] [address] [facility] [id number] [address] [place] [address] Nov, Bipolar I disorder, most rec ent episode (or current) mixed, moderate F31.62 [facility] [address] [facility] [id number] [address] [place] [address] Nov, Hypokalemia E87.6 [facility] [address] [facility] [id number] [address] [place] [address] Nov, Bipolar I disorder, most rec ent episode (or current) mixed, moderate F31.62 [place] [address] [facility] [id number] [address] [place] [address] Oct, Chronic pain G89.29 [facility] [address] [place] [id number] [place] [address] Oct, BMI 50.0-59.9, adult Z68.43 and Bipolar I disorder, most recent episode (or current) mixed, moderate F31.62 [place] [address] [facility] [id number] [address] [place] [address] Oct, Bipolar I disorder, most rec ent episode (or current) mixed, moderate F31.62 [place] [address] [place] [id number] [place] [address] Oct, [place] [address] [facility] [id number] [address] [place] [address] Oct, Hypokalemia E87.6 [place] [address] [facility] [id number] [address] [place] [address] Oct, DM neuro manif type II E11.4 9 [facility] [address] [facility] [id number] [address] [place] [address] Oct, Bipolar I disorder, most rec ent episode (or current) mixed, moderate F31.62 [place] [address] [facility] [id number] [address] [place] [address] 20 Oct, 2017 Bipolar I disorder, most rec ent episode (or current) mixed, moderate F31.62 [place] [address] [address] 14 Oct, 2017 Hyperkalemia E87.5 ; Falling R29.6 ; BMI 50.0-59.9, adult Z68.43 and Acute left ankle pain M25.572 [place] [address] [address] 08 Oct, 2017 DM neuro manif type II E11.[address] [address] Oct, [place] [address] [address] Sep, Chronic pain G89.29 [place] [address] [address] Sep, [place] [address] [address] Sep, Bilateral primary osteoarthr itis of knee M17.[address] [address] Sep, Generalized edema R60.[address] [address] 16 Sep, 2017 Bipolar I disorder, most rec ent episode (or current) mixed, moderate F31.62 [place] [address] [address] 15 Sep, 2017 Hypoxia R09.02 ; Other hyper volemia E87.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 ; Anemia of chronic illness D63.8 and BMI 50.0- 59.9, adult Z68.43 [place] [id number] [place] [address] Sep, [facility] [address] [facility] [id number] [address] [place] [address] Sep, Bipolar I disorder, most rec ent episode (or current) mixed, moderate F31.62 [facility] [address] [place] [id number] [place] [address] Aug, Chronic pain G89.29 [facility] [address] [place] [id number] [place] [address] Aug, Generalized edema R60.1 [facility] [address] [place] [id number] [place] [address] Aug, [facility] [address] [place] [id number] [place] [address] Aug, [facility] [address] [place] [id number] [place] [address] Aug, Bipolar I disorder, most rec ent episode (or current) mixed, moderate F31.62 [place] [address] [place] [id number] [place] [address] Aug, Bipolar I disorder, most rec ent episode (or current) mixed, moderate F31.62 [facility] [address] [place] [id number] [place] [address] 04 Aug, 2017 Chronic pain G89.29 [facility] [address] [place] [id number] [place] [address] 30 Jul, 2017 Bipolar I disorder, most rec ent episode (or current) mixed, moderate F31.62 [facility] [address] [place] [id number] [place] [address] 27 Jul, 2017 Bipolar I disorder, most rec ent episode (or current) mixed, moderate F31.62 and BMI 60.0-69.9, adult Z68.44 [facility] [address] [place] [id number] [place] [address] Jul, Bipolar I disorder, most rec ent episode (or current) mixed, moderate F31.62 [facility] [address] [facility] [id number] [address] [place] [address] Jul, Chronic pain G89.29 [facility] [address] [facility] [id number] [address] [place] [address] Jul, Bipolar I disorder, most rec ent episode (or current) mixed, moderate F31.62 [facility] [address] [facility] [id number] [address] [place] [address] Jun, Polyneuropathy associated wi th underlying disease G63 and Diabetes E11.9 [facility] [address] [facility] [id number] [address] [place] [address] Jun, Bipolar I disorder, most rec ent episode (or current) mixed, moderate F31.62 [facility] [address] [facility] [id number] [address] [place] [address] Jun, Chronic pain G89.29 [facility] [address] [id number] [address] [place] [address] May, Bipolar I disorder, most rec ent episode (or current) mixed, moderate F31.62 [facility] [address] [facility] [id number] [address] [place] [address] May, Bipolar I disorder, most rec ent episode (or current) mixed, moderate F31.62 [facility] [address] [facility] [id number] [address] [place] [address] 20 May, 2017 Diabetic polyneuropathy asso ciated with type 2 diabetes mellitus E11.42 [facility] [address] [id number] [address] [place] [address] 18 May, 2017 Bipolar I disorder, most rec ent episode (or current) mixed, moderate F31.62 [facility] [address] [facility] [id number] [address] [place] [address] 13 May, 2017 Bipolar I disorder, most rec ent episode (or current) mixed, moderate F31.62 [facility] [address] [id number] [address] [place] [address] May, Chronic pain G89.29 [facility] [address] [id number] [address] [place] [address] Apr, Bipolar I disorder, most rec ent episode (or current) mixed, moderate F31.62 [facility] [address] [id number] [address] [place] [address] Apr, [facility] [address] [id number] [address] [place] [address] Apr, Chronic pain G89.29 and DM n euro manif type II E11.49 [facility] [address] [id number] [address] [place] [address] Apr, [facility] [address] [id number] [address] [place] [address] Apr, Bipolar I disorder, most rec ent episode (or current) mixed, moderate F31.62 [facility] [address] [id number] [address] [place] [address] Apr, Chronic pain G89.29 [facility] [address] [id number] [address] [place] [address] Apr, Iliotibial band syndrome, le ft M76.32 [facility] [address] [id number] [address] [place] [address] Apr, Bipolar I disorder, most rec ent episode (or current) mixed, moderate F31.62 [facility] [address] [id number] [address] [place] [address] Mar, Bipolar I disorder, most rec ent episode (or current) mixed, moderate F31.62 [facility] [address] [facility] [id number] [address] [place] [id number] Mar, Bipolar I disorder, most rec ent episode (or current) mixed, moderate F31.62 [facility] [address] [facility] [id number] [address] [place] [id number] Mar, [facility] [address] [id number] [address] [place] [id number] Mar, Bipolar I disorder, most rec ent episode (or current) mixed, moderate F31.62 [facility] [address] [place] [id number] [address] [place] [id number] Mar, Chronic pain G89.29 [facility] [address] [facility] [id number] [address] [place] [id number] Mar, Bipolar I disorder, most rec ent episode (or current) mixed, moderate F31.62 [facility] [address] [place] [id number] [address] [place] [id number] Mar, Bipolar I disorder, most rec ent episode (or current) mixed, moderate F31.62 [facility] [address] [place] [id number] [address] [place] [id number] Mar, Acute pain of left knee M25. 562 ; Left hip pain M25.552 ; Generalized edema R60.1 and Tongue swelling R22.0 [facility] [address] [place] [id number] [address] [place] [id number] Mar, [facility] [address] [facility] [id number] [address] [place] [id number] Feb, Chronic pain G89.29 [facility] [address] [place] [id number] [address] [place] [id number] Feb, Diabetes E11.9 [facility] [address] [facility] [id number] [address] [place] [id number] January, Chronic pain G89.29 [facility] [address] [facility] [id number] [address] [place] [address] January, [facility] [address] [id number] [address] [place] [address] January, Bipolar I disorder, most rec ent episode (or current) mixed, moderate F31.62 [facility] [address] [id number] [address] [place] [address] Dec, Bipolar I disorder, most rec ent episode (or current) mixed, moderate F31.62 [facility] [address] [facility] [id number] [address] [place] [address] Dec, Chronic pain G89.29 [facility] [address] [facility] [id number] [address] [place] [address] Dec, Bipolar I disorder, most rec ent episode (or current) mixed, moderate F31.62 [facility] [address] [facility] [id number] [address] [place] [address] Dec, Diabetes E11.9 ; Essential h ypertension I10 ; Chronic pain G89.29 and Morbid obesity E66.01 [facility] [address] [facility] [id number] [address] [place] [address] Dec, [facility] [address] [facility] [id number] [address] [place] [address] Dec, Bipolar I disorder, most rec ent episode (or current) mixed, moderate F31.62 [facility] [address] [facility] [id number] [address] [place] [address] Dec, Bipolar I disorder, most rec ent episode (or current) mixed, moderate F31.62 [facility] [address] [facility] [id number] [address] [place] [address] Nov, Chronic pain G89.29 [facility] [address] [id number] [address] [place] [address] Nov, Bipolar I disorder, most rec ent episode (or current) mixed, moderate F31.62 [facility] [address] [facility] [id number] [address] [place] [address] Nov, [facility] [address] [facility] [id number] [address] [place] [address] Nov, Bipolar I disorder, most rec ent episode (or current) mixed, moderate F31.62 [facility] [address] [facility] [id number] [address] [place] [address] Nov, Bipolar I disorder, most rec ent episode (or current) mixed, moderate F31.62 [facility] [address] [facility] [id number] [address] [place] [address] Nov, [facility] [address] [facility] [id number] [address] [place] [address] Nov, [facility] [address] [facility] [id number] [address] [place] [address] Nov, [facility] [address] [facility] [id number] [address] [place] [address] Oct, Chronic pain G89.29 [facility] [address] [facility] [id number] [address] [place] [address] Oct, Bipolar I disorder, most rec ent episode (or current) mixed, moderate F31.62 [facility] [address] [facility] [id number] [address] [place] [address] Oct, [facility] [address] [facility] [id number] [address] [place] [address] Oct, Chronic pain G89.29 ; Diabet es E11.9 ; Anxiety F41.9 and 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 [facility] [address] [facility] [id number] [address] [place] [address] Oct, [facility] [address] [facility] [id number] [address] [place] [address] Oct, Diabetes E11.9 [facility] [address] [facility] [id number] [address] [place] [address] Oct, Bipolar I disorder, most rec ent episode (or current) mixed, moderate F31.62 [facility] [address] [facility] [id number] [address] [place] [address] Sep, Chronic pain G89.29 [facility] [address] [id number] [address] [place] [address] Sep, Chronic pain G89.29 [facility] [address] [facility] [id number] [address] [place] [address] Aug, Chronic pain G89.29 [facility] [address] [facility] [id number] [address] [place] [address] Jul, [facility] [address] [facility] [id number] [address] [place] [address] Jul, Diabetes E11.9 [facility] [address] [facility] [id number] [address] [place] [address] Jul, Chronic pain G89.29 [facility] [address] [facility] [id number] [address] [place] [address] Jul, Bipolar I disorder, most rec ent episode (or current) mixed, moderate F31.62 [facility] [address] [facility] [id number] [address] [place] [address] Jun, Bipolar I disorder, most rec ent episode (or current) mixed, moderate F31.62 [facility] [address] [facility] [id number] [address] [place] [address] Jun, [facility] [address] [facility] [id number] [address] [place] [address] Jun, Bipolar I disorder, most rec ent episode (or current) mixed, moderate F31.62 [facility] [address] [facility] [id number] [address] [place] [address] 30 May, 2016 Insomnia, unspecified type G 47.00 [facility] [address] [facility] [id number] [address] [place] [address] 22 May, 2016 Bipolar I disorder, most rec ent episode (or current) mixed, moderate F31.62 [facility] [address] [facility] [id number] [address] [place] [address] 14 May, 2016 [facility] [address] [facility] [id number] [address] [place] [address] May, Bipolar I disorder, most rec ent episode (or current) mixed, moderate F31.62 [facility] [address] [id number] [address] [place] [address] May, Diabetes E11.9 and Essential hypertension I10 [place] [place] [address] [place] [id number] [address] [place] [address] Apr, Chronic pain G89.29 [place] [address] [facility] [id number] [address] [place] [address] Apr, Bipolar I disorder, most rec ent episode (or current) mixed, moderate F31.62 [place] [address] [place] [id number] [address] [place] [address] Apr, [facility] [address] [id number] [place] [address] Apr, [facility] [address] [place] [id number] [address] [place] [address] Mar, Chronic pain G89.29 ; Headac he, unspecified headache type R51 ; Neuropathy G62.9 ; Pain of right hip joint M25.551 and Essential hypertension I10 [place] [address] [id number] [address] [place] [address] Mar, Chronic pain G89.29 [place] [place] [address] [place] [id number] [address] [place] [address] Mar, Bipolar I disorder, most rec ent episode (or current) mixed, moderate F31.62 [place] [address] [place] [id number] [address] [place] [address] Feb, Bipolar I disorder, most rec ent episode (or current) mixed, moderate F31.62 and Insomnia, unspecified type G47.00 [place] [address] [facility] [id number] [address] [place] [address] Feb, Chronic pain G89.29 [facility] [address] [id number] [address] [place] [address] Feb, Bipolar I disorder, most rec ent episode (or current) mixed, moderate F31.62 [facility] [address] [id number] [address] [place] [address] January, Bipolar I disorder, most rec ent episode (or current) mixed, moderate F31.62 [facility] [address] [id number] [address] [place] [address] January, Chronic pain G89.29 [facility] [address] [id number] [address] [place] [address] January, Chronic pain G89.29 and Esse ntial hypertension I10 [facility] [address] [id number] [address] [place] [address] January, Bipolar I disorder, most rec ent episode (or current) mixed, moderate F31.62 [facility] [address] [id number] [address] [place] [address] Dec, [facility] [address] [id number] [address] [place] [address] Dec, [facility] [address] [id number] [address] [place] [address] Dec, [facility] [address] [id number] [address] [place] [address] Dec, [facility] [address] [id number] [address] [place] [address] Nov, Reactive airway disease J45. 909 [facility] [address] [id number] [address] [place] [address] Nov, [facility] [address] [id number] [address] [place] [address] Nov, [facility] [address] [facility] [id number] [address] [place] [address] Nov, [place] [address] [address] Nov, [address] [address] Nov, Onychomycosis B35.1 ; Hammer toe M20.40 ; Ignacio or callus L84 and DM neuro manif type II E11.[address] [address] Nov, Chronic pain G89.29 ; Leukoc ytosis D72.829 and Diabetes E11.[address] [address] Nov, [place] [address] [address] Oct, Bronchitis J40 [address] [address] Oct, [place] [address] [address] Oct, [address] [address] Oct, Mastoiditis, unspecified lat erality H70.90 and Type 2 diabetes mellitus with complication E11.[address] [address] Sep, [address] [address] Sep, Dysuria R30.0 ; Cough R05 ; Benign prostatic hyperplasia with lower urinary tract symptoms, unspecified morphology N40.1 ; Hypokalemia E87.6 and Eustachian tube dysfunction, unspecified laterality H69.[address] [address] Sep, Moderate mixed bipolar I dis order F31.62 [place] [address] [id number] [address] [place] [address] Sep, Hypokalemia E87.6 [facility] [address] [id number] [address] [place] [address] Sep, [facility] [address] [id number] [address] [place] [address] Sep, Upper respiratory tract infe ction, unspecified type J06.9 [facility] [address] [id number] [address] [place] [address] Aug, [facility] [address] [id number] [address] [place] [address] Aug, Dysuria R30.0 [facility] [address] [id number] [address] [place] [address] Aug, [facility] [address] [id number] [address] [place] [address] Jul, [facility] [address] [id number] [address] [place] [address] Jul, [facility] [address] [id number] [address] [place] [address] Jul, [facility] [address] [id number] [address] [place] [address] Jul, [facility] [address] [id number] [address] [place] [address] Jun, [facility] [address] [id number] [address] [place] [address] Jun, [facility] [address] [id number] [address] [place] [address] Jun, [facility] [address] [id number] [address] [place] [address] 29 May, 2015 [facility] [address] [id number] [address] [place] [address] May, Bipolar I disorder, most rec ent episode (or current) mixed, moderate 296.62 [facility] [address] [id number] [address] [place] [address] May, [facility] [address] [facility] [id number] [address] [place] [address] May, Bipolar I disorder, most rec ent episode (or current) mixed, moderate 296.62 and Major depressive disorder, recurrent episode, severe, specified as with psychotic behavior 296.34 [facility] [address] [id number] [address] [place] [address] May, Bipolar I disorder, most rec ent episode (or current) mixed, moderate 296.62 [facility] [address] [facility] [id number] [address] [place] [address] May, [facility] [address] [facility] [id number] [address] [place] [address] Apr, [facility] [address] [facility] [id number] [address] [place] [address] Apr, [facility] [address] [facility] [id number] [address] [place] [address] Apr, Unspecified disorder of kidn ey and ureter 593.9 and Diabetes mellitus type 2, uncontrolled 250.02 [facility] [address] [facility] [id number] [address] [place] [address] Apr, [facility] [address] [facility] [id number] [address] [place] [address] Apr, [facility] [address] [facility] [id number] [address] [place] [address] Apr, [facility] [address] [facility] [id number] [address] [place] [address] Apr, [facility] [address] [facility] [id number] [address] [place] [address] Apr, Diabetes mellitus type II, u ncontrolled 250.02 [facility] [address] [facility] [id number] [address] [place] [address] Apr, [facility] [address] [facility] [id number] [address] [place] [address] Mar, [facility] [address] [facility] [id number] [address] [place] [address] Mar, [facility] [address] [facility] [id number] [address] [place] [address] Mar, [facility] [address] [facility] [id number] [address] [place] [address] Mar, Major depressive disorder, r ecurrent episode, severe, specified as with psychotic behavior 296.34 and Bipolar I disorder, most recent episode (or current) mixed, moderate 296.62 [facility] [address] [facility] [id number] [address] [place] [address] Mar, Diabetes 250.00 ; Anuria 788 .5 ; Nausea and vomiting 787.01 and Diarrhea 787.91 [facility] [address] [facility] [id number] [address] [place] [address] Mar, Diabetes 250.00 [facility] [address] [facility] [id number] [address] [place] [address] Mar, [facility] [address] [facility] [id number] [address] [place] [address] Mar, Diabetes 250.00 [facility] [address] [facility] [id number] [address] [place] [address] Mar, [facility] [address] [facility] [id number] [address] [place] [address] Mar, [facility] [address] [facility] [id number] [address] [place] [address] Mar, [facility] [address] [facility] [id number] [address] [place] [address] Mar, [facility] [address] [facility] [id number] [address] [place] [address] Mar, Bipolar I disorder, most rec ent episode (or current) mixed, moderate 296.62 and Major depressive disorder, recurrent episode, severe, specified as with psychotic behavior 296.[address] [address] Mar, Magnesium deficiency 275.2 ; Hypokalemia 276.8 ; Nausea & vomiting 787.01 and Diabetes mellitus type 2, uncontrolled 250.[address] [address] Feb, [address] [address] Feb, Bipolar I disorder, most rec ent episode (or current) mixed, moderate 296.[address] [address] Feb, Nausea and vomiting 787.01 ; Left elbow pain 719.42 ; Anuria 788.5 and Diabetes 250.[address] [address] Feb, [address] [address] Feb, Hypopotassemia 276.8 and Hyp okalemia 276.[address] [address] Feb, Hypopotassemia 276.8 and Hyp okalemia 276.[address] [address] Feb, Seborrheic keratoses 702.[address] [address] Feb, Hypopotassemia 276.8 and Low magnesium levels 275.[address] [address] January, [facility] [address] [id number] [address] [place] [address] January, [facility] [address] [id number] [address] [place] [address] January, [facility] [address] [id number] [address] [place] [address] January, Scalp lesion 709.9 [facility] [address] [id number] [address] [place] [address] January, [facility] [address] [id number] [address] [place] [address] Dec, Tear of medial cartilage or meniscus of knee, current 836.0 and 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 [facility] [address] [id number] [address] [place] [address] Dec, [facility] [address] [id number] [address] [place] [address] Dec, [facility] [address] [id number] [address] [place] [address] Dec, Squamous cell carcinoma, 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 [facility] [address] [id number] [address] [place] [address] 14 Dec, 2014 [facility] [address] [id number] [address] [place] [address] Dec, [facility] [address] [id number] [address] [place] [address] Nov, [facility] [address] [id number] [address] [place] [address] Nov, [facility] [address] [id number] [address] [place] [address] Nov, [facility] [address] [id number] [address] [place] [address] Nov, [facility] [address] [id number] [address] [place] [address], [place] [address] 09 Nov, 2014 [facility] [address] [id number] [address] [place] [address], [place] [address] Nov, 2014 [facility] [address] [id number] [address] [place] [address], [place] [address] Nov, 2014 [facility] [address] [id number] [address] [place] [address], [place] [address] Nov, 2014 [facility] [address] [id number] [address] [place] [address], [place] [address] Nov, 2014 [facility] [address] [id number] [address] [place] [address], [place] [address] Nov, 2014 [facility] [address] [id number] [address] [place] [address], [place] [address] Nov, 2014 [facility] [address] [id number] [address] [place] [address], [place] [address] Nov, 2014 [facility] [address] [id number] [address] [place] [address], [place] [address] Oct, 2014 [facility] [address] [id number] [address] [place] [address], [place] [address] Oct, 2014 [facility] [address] [id number] [address] [place] [address], [place] [address] Oct, 2014 [facility] [address] [id number] [address] [place] [address], [place] [address] Oct, 2014 [facility] [address] [id number] [address] [place] [address], [place] [address] Oct, 2014 [facility] [address] [id number] [address] [place] [address], [place] [address] Oct, 2014 [facility] [address] [id number] [address] [place] [address], [place] [address] Oct, 2014 [facility] [address] [id number] [address] [place] [address], [place] [address] Oct, [facility] [address] [id number] [address] [place] [address], [place] [address] Oct, [facility] [address] [id number] [address] [place] [address], [place] [address] Sep, [facility] [address] [id number] [address] [place] [address], [place] [address] Sep, [facility] [address] [id number] [address] [place] [address], [place] [address] Sep, [facility] [address] [id number] [address] [place] [address], [place] [address] Sep, [facility] [address] [id number] [address] [place] [address], [place] [address] Sep, [facility] [address] [id number] [address] [place] [address], [place] [address] Sep, [facility] [address] [id number] [address] [place] [address], [place] [address] Sep, [facility] [address] [id number] [address] [place] [address], [place] [address] Sep, [facility] [address] [id number] [address] [place] [address], [place] [address] Sep, [facility] [address] [id number] [address] [place] [address], [place] [address] Sep, [facility] [address] [id number] [address] [place] [address] Sep, [facility] [address] [id number] [address] [place] [address], [place] [address] Sep, [facility] [address] [id number] [address] [place] [address], [place] [address] Sep, [facility] [address] [id number] [address] [place] [address], [place] [address] Sep, [facility] [address] [id number] [facility] [place] [address] Sep, [facility] [address] [id number] [address] [place] [address], [place] [address] Sep, [facility] [address] [id number] [address] [place] [address], [place] [address] Aug, [facility] [address] [id number] [address] [place] [address], [place] [address] Aug, [facility] [address] [id number] [address] [place] [address], [place] [address] Aug, [facility] [address] [id number] [address] [place] [address], [place] [address] Aug, [facility] [address] [id number] [address] [place] [address], [place] [address] Aug, [facility] [address] [id number] [address] [place] [address], [place] [address] Aug, [facility] [address] [id number] [address] [place] [address], [place] [address] Aug, [facility] [address] [id number] [address] [place] [address], [place] [address] Aug, [facility] [address] [id number] [address] [place] [address], [place] [address] Aug, [facility] [address] [id number] [address] [place] [address], [place] [address] Aug, [facility] [address] [id number] [address] [place] [address], [place] [address] Aug, [facility] [address] [place] [id number] Aug, [facility] [address] [id number] [address] [place] [address], [place] [address] Aug, [facility] [address] [id number] [address] [place] [address], [place] [address] Aug, [facility] [address] [id number] [address] [place] [address], [place] [address] 10 Aug, 2014 [facility] [address] [id number] [address] [place] [address], [place] [address] Aug, [facility] [address] [id number] [address] [place] [address], [place] [address] Aug, [facility] [address] [id number] [address] [place] [address], [place] [address] Aug, [facility] [address] [id number] [address] [place] [address], [place] [address] Aug, [facility] [address] [id number] [address] [place] [address], [place] [address] Aug, [facility] [address] [id number] [address] [place] [address], [place] [address] Aug, [facility] [address] [id number] [address] [place] [address], [place] [address] Aug, [facility] [address] [id number] [address] [place] [address], [place] [address] Aug, [facility] [address] [id number] [address] [place] [address], [place] [address] Aug, [facility] [address] [id number] [address] [place] [address], [place] [address] Aug, [facility] [address] [id number] [address] [place] [address], [place] [address] Aug, [facility] [address] [id number] [address] [place] [address], [place] [address] Aug, [facility] [address] [id number] [address] [place] [address], [place] [address] Aug, [facility] [address] [id number] [address] [place] [address], [place] [address] Aug, [facility] [address] [id number] [address] [place] [address], [place] [address] Aug, [facility] [address] [id number] [address] [place] [address], [place] [address] Jul, [facility] [address] [id number] [address] [place] [address], [place] [address] Jul, [facility] [address] [id number] [address] [place] [address], [place] [address] Jul, [facility] [address] [id number] [address] [place] [address], [place] [address] Jul, [facility] [address] [id number] [address] [place] [address], [place] [address] Jul, [facility] [address] [id number] [address] [place] [address], [place] [address] Jul, [facility] [address] [id number] [address] [place] [address], [place] [address] Jul, [facility] [address] [id number] [address] [place] [address], [place] [address] Jul, [facility] [address] [id number] [address] [place] [address], [place] [address] Jul, [facility] [address] [id number] [address] [place] [address], [place] [address] Jul, [facility] [address] [id number] [address] [place] [address], [place] [address] Jun, [facility] [address] [id number] [address] [place] [address], [place] [address] Jun, [facility] [address] [id number] [address] [place] [address], [place] [address] Jun, [facility] [address] [id number] [address] [place] [address], [place] [address] Jun, [facility] [address] [id number] [address] [place] [address], [place] [address] 15 Jun, 2014 [facility] [address] [id number] [address] [place] [address], [place] [address] 15 Jun, 2014 [facility] [address] [id number] [address] [place] [address], [place] [address] 05 Jun, 2014 [facility] [address] [id number] [address] [place] [address], [place] [address] 05 Jun, 2014 [facility] [address] [id number] [address] [place] [address], [place] [address] Jun, [facility] [address] [id number] [address] [place] [address], [place] [address] Jun, [facility] [address] [id number] [address] [place] [address], [place] [address] 29 May, 2013 [facility] [address] [id number] [address] [place] [address], [place] [address] 29 Sep, 2013 [facility] [address] [id number] [address] [place] [address], [place] [address] 26 May, 2013 [facility] [address] [id number] [address] [place] [address], [place] [address] 26 Sep, 2013 [facility] [address] [id number] [address] [place] [address], [place] [address] 17 May, 2013 [facility] [address] [id number] [address] [place] [address], [place] [address] 17 Sep, 2013 [facility] [address] [id number] [address] [place] [address], [place] [address] 15 Sep, 2013 [facility] [address] [id number] [address] [place] [address], [place] [address] 15 Sep, 2013 [facility] [address] [id number] [address] [place] [address], [place] [address] 15 Sep, 2013 [facility] [address] [id number] [address] [place] [address], [place] [address] 15 Sep, 2013 [facility] [address] [id number] [address] [place] [address], [place] [address] 10 May2013 [facility] [address] [id number] [facility] [place] [address] May, 2013 [facility] [address] [id number] [facility] [place] [address] May, [facility] [address] [id number] [facility] [place] [address] May, 2013 [facility] [address] [id number] [address] [place] [address], [place] [address] May, [facility] [address] [id number] [address] [place] [address], [place] [address] May, [facility] [address] [id number] [address] [place] [address], [place] [address] Apr, [facility] [address] [id number] [address] [place] [address], [place] [address] Apr, [facility] [address] [id number] [address] [place] [address], [place] [address] Apr, [facility] [address] [id number] [address] [place] [address], [place] [address] Apr, [facility] [address] [id number] [address] [place] [address], [place] [address] Apr, [facility] [address] [id number] [address] [place] [address], [place] [address] Apr, [facility] [address] [id number] [address] [place] [address], [place] [address] Apr, [facility] [address] [id number] [address] [place] [address], [place] [address] Apr, [facility] [address] [id number] [address] [place] [address], [place] [address] Apr, [facility] [address] [id number] [address] [place] [address], [place] [address] Apr, [facility] [address] [id number] [address] [place] [address], [place] [address] Apr, [facility] [address] [id number] [facility] [place] [address] Apr, [facility] [address] [id number] [address] [place] [address], [place] [address] Apr, [facility] [address] [id number] [address] [place] [address], [place] [address] Apr, [facility] [address] [id number] [address] [place] [address], [place] [address] Apr, [facility] [address] [id number] [address] [place] [address], [place] [address] Mar, [facility] [address] [id number] [address] [place] [address], [place] [address] Mar, [facility] [address] [id number] [address] [place] [address], [place] [address] Mar, [facility] [address] [id number] [address] [place] [address], [place] [address] Mar, [facility] [address] [id number] [address] [place] [address], [place] [address] Mar, [facility] [address] [id number] [address] [place] [address], [place] [address] Mar, [facility] [address] [id number] [address] [place] [address], [place] [address] Mar, [facility] [address] [id number] [address] [place] [address], [place] [address] Mar, [facility] [address] [id number] [address] [place] [address], [place] [address] Mar, [facility] [address] [id number] [address] [place] [address], [place] [address] Mar, [facility] [address] [id number] [address] [place] [address], [place] [address] Mar, [facility] [address] [id number] [facility] [place] [address] Mar, 2013 [facility] [address] [id number] [facility] [place] [address] Mar, 2013 [facility] [address] [id number] [facility] [place] [address] Mar, 2013 [facility] [address] [id number] [address] [place] [address], [place] [address] Mar, 2013 [facility] [address] [id number] [address] [place] [address], [place] [address] Mar, 2013 [facility] [address] [id number] [address] [place] [address], [place] [address] Mar, 2013 [facility] [address] [id number] [address] [place] [address], [place] [address] Mar, 2013 [facility] [address] [id number] [address] [place] [address], [place] [address] Feb, [facility] [address] [id number] [address] [place] [address], [place] [address] Feb, [facility] [address] [id number] [address] [place] [address], [place] [address] Feb, [facility] [address] [id number] [address] [place] [address], [place] [address] Feb, [facility] [address] [id number] [address] [place] [address], [place] [address] Feb, [facility] [address] [id number] [address] [place] [address], [place] [address] Feb, [facility] [address] [id number] [address] [place] [address], [place] [address] Feb, [facility] [address] [id number] [address] [place] [address], [place] [address] Feb, [facility] [address] [id number] [address] [place] [address], [place] [address] Feb, [facility] [address] [id number] [address] [place] [address], [place] [address] Feb, [facility] [address] [id number] [address] [place] [address], [place] [address] Feb, [facility] [address] [id number] [address] [place] [address], [place] [address] Feb, [facility] [address] [id number] [address] [place] [address], [place] [address] Feb, [facility] [address] [id number] [address] [place] [address], [place] [address] Feb, [facility] [address] [id number] [address] [place] [address], [place] [address] January, [facility] [address] [id number] [address] [place] [address], [place] [address] January, [facility] [address] [id number] [address] [place] [address], [place] [address] January, [facility] [address] [id number] [address] [place] [address], [place] [address] January, [facility] [address] [id number] [address] [place] [address], [place] [address] January, [facility] [address] [id number] [address] [place] [address], [place] [address] January, [facility] [address] [id number] [address] [place] [address], [place] [address] January, [facility] [address] [id number] [address] [place] [address], [place] [address] January, [facility] [address] [id number] [address] [place] [address], [place] [address] January, [facility] [address] [id number] [address] [place] [address], [place] [address] January, [facility] [address] [id number] [address] [place] [address], [place] [address] January, [facility] [address] [id number] [address] [place] [address], [place] [address] January, [facility] [address] [id number] [address] [place] [address], [place] [address] January, [facility] [address] [id number] [address] [place] [address], [place] [address] January, [facility] [address] [id number] [address] [place] [address], [place] [address] Dec, [facility] [address] [id number] [address] [place] [address], [place] [address] Dec, [facility] [address] [id number] [address] [place] [address], [place] [address] Dec, [facility] [address] [id number] [address] [place] [address], [place] [address] Dec, [facility] [address] [id number] [address] [place] [address], [place] [address] Dec, [facility] [address] [id number] [address] [place] [address], [place] [address] Dec, [facility] [address] [id number] [address] [place] [address], [place] [address] Dec, [facility] [address] [id number] [address] [place] [address], [place] [address] Dec, [facility] [address] [id number] [address] [place] [address], [place] [address] Dec, [facility] [address] [id number] [address] [place] [address], [place] [address] Dec, [facility] [address] [id number] [address] [place] [address], [place] [address] Nov, [facility] [address] [id number] [address] [place] [address], [place] [address] Nov, [facility] [address] [id number] [address] [place] [address], [place] [address] 10 Nov, 2013 [facility] [address] [id number] [address] [place] [address], [place] [address] 10 Nov, 2013 [facility] [address] [id number] [address] [place] [address], [place] [address] 08 Nov, 2013 [facility] [address] [id number] [address] [place] [address], [place] [address] 08 Nov, 2013 [facility] [address] [id number] [address] [place] [address], [place] [address] Nov, [facility] [address] [id number] [address] [place] [address], [place] [address] Nov, [facility] [address] [id number] [address] [place] [address], [place] [address] Nov, [facility] [address] [id number] [address] [place] [address], [place] [address] Nov, [facility] [address] [id number] [address] [place] [address], [place] [address] Oct, [facility] [address] [id number] [address] [place] [address], [place] [address] Oct, [facility] [address] [id number] [address] [place] [address], [place] [address] Oct, [facility] [address] [id number] [address] [place] [address], [place] [address] Oct, [facility] [address] [id number] [address] [place] [address], [place] [address] Oct, [facility] [address] [id number] [address] [place] [address], [place] [address] 20 Oct, 2013 [facility] [address] [id number] [address] [place] [address], [place] [address] 14 Oct, 2013 [facility] [address] [id number] [address] [place] [address], [place] [address] 14 Oct, 2013 [facility] [address] [id number] [address] [place] [address], [place] [address] Oct, [facility] [address] [id number] [address] [place] [address], [place] [address] Oct, [facility] [address] [id number] [address] [place] [address], [place] [address] Oct, [facility] [address] [id number] [address] [place] [address], [place] [address] Oct, [facility] [address] [id number] [address] [place] [address], [place] [address] Oct, [facility] [address] [id number] [address] [place] [address], [place] [address] Oct, [facility] [address] [id number] [address] [place] [address], [place] [address] Sep, [facility] [address] [id number] [address] [place] [address], [place] [address] Sep, [facility] [address] [id number] [address] [place] [address], [place] [address] Sep, [facility] [address] [id number] [address] [place] [address], [place] [address] Sep, [facility] [address] [id number] [address] [place] [address], [place] [address] Sep, [facility] [address] [id number] [address] [place] [address], [place] [address] Sep, [facility] [address] [id number] [address] [place] [address], [place] [address] Sep, [facility] [address] [id number] [address] [place] [address], [place] [address] Sep, [facility] [address] [id number] [address] [place] [address], [place] [address] Sep, [facility] [address] [id number] [address] [place] [address], [place] [address] Sep, [facility] [address] [id number] [address] [place] [address], [place] [address] Aug, [facility] [address] [id number] [address] [place] [address], [place] [address] Aug, [facility] [address] [id number] [address] [place] [address], [place] [address] Jul, [facility] [address] [id number] [address] [place] [address], [place] [address] Jul, [facility] [address] [id number] [address] [place] [address], [place] [address] Jul, [facility] [address] [id number] [address] [place] [address], [place] [address] Jul, [facility] [address] [id number] [address] [place] [address], [place] [address] Jul, [facility] [address] [id number] [address] [place] [address], [place] [address] Jul, [facility] [address] [id number] [address] [place] [address], [place] [address] Jul, [facility] [address] [id number] [address] [place] [address], [place] [address] Jul, [facility] [address] [id number] [address] [place] [address], [place] [address] Jul, [facility] [address] [id number] [address] [place] [address], [place] [address] Jul, [facility] [address] [id number] [address] [place] [address], [place] [address] Jul, [facility] [address] [id number] [address] [place] [address], [place] [address] Jul, [facility] [address] [id number] [address] [place] [address] Jul, [facility] [address] [id number] [address] [place] [address], [place] [address] Jul, [facility] [address] [id number] [address] [place] [address] Jul, [facility] [address] [id number] [address] [place] [address] Jul, [facility] [address] [id number] [address] [place] [address] Jul, [facility] [address] [id number] [address] [place] [address], [place] [address] Jul, [facility] [address] [id number] [address] [place] [address] Jul, [facility] [address] [id number] [address] [place] [address] Jun, [facility] [address] [id number] [address] [place] [id number] 16 Jun, 2013 [facility] [address] [id number] [address] [place] [address] 16 Jun, 2012 [facility] [address] [id number] [address] [place] [address] 16 Jun, 2012 [facility] [address] [id number] [address] [place] [id number] 16 Jun, 2012 [facility] [address] [id number] [address] [place] [id number] 16 Jun, 2012 [facility] [address] [id number] [address] [place] [address] 10 Jun, 2012 [facility] [address] [id number] [address] [place] [address] 10 Jun, 2012 [facility] [address] [id number] [address] [place] [id number] 09 Jun, 2013 [facility] [address] [id number] [address] [place] [address], [place] [address] Jun, [facility] [address] [id number] [address] [place] [address], [place] [address] Jun, [facility] [address] [id number] [address] [place] [address], [place] [address] May, [facility] [address] [id number] [address] [place] [address], [place] [address] May, 2012 [facility] [address] [id number] [address] [place] [address], [place] [address] May, 2012 [facility] [address] [id number] [address] [place] [address], [place] [address] 17 May, 2012 [facility] [address] [id number] [address] [place] [address], [place] [address] May, [facility] [address] [id number] [address] [place] [address], [place] [address] May, [facility] [address] [id number] [address] [place] [address], [place] [address] May, [facility] [address] [id number] [address] [place] [address], [place] [address] May, [facility] [address] [id number] [address] [place] [address], [place] [address] Apr, [facility] [address] [id number] [address] [place] [address], [place] [address] Apr, [facility] [address] [id number] [address] [place] [address], [place] [address] Apr, [facility] [address] [id number] [address] [place] [address], [place] [address] Apr, [facility] [address] [id number] [address] [place] [address], [place] [address] Apr, [facility] [address] [id number] [address] [place] [address], [place] [address] Mar, [facility] [address] [id number] [address] [place] [address], [place] [address] Mar, [facility] [address] [id number] [address] [place] [address], [place] [address] Mar, [facility] [address] [id number] [address] [place] [address], [place] [address] Mar, [facility] [address] [id number] [address] [place] [address], [place] [address] Mar, [facility] [address] [id number] [address] [place] [address], [place] [address] Mar, [facility] [address] [id number] [address] [place] [address], [place] [address] Mar, [facility] [address] [id number] [address] [place] [address], [place] [address] Mar, [facility] [address] [id number] [address] [place] [address], [place] [address] Feb, [facility] [address] [id number] [address] [place] [address], [place] [address] Feb, [facility] [address] [id number] [address] [place] [address], [place] [address] January, [facility] [address] [id number] [address] [place] [address], [place] [address] January, [facility] [address] [id number] [address] [place] [address], [place] [address] Dec, [facility] [address] [id number] [address] [place] [address], [place] [address] Dec, [facility] [address] [id number] [address] [place] [address], [place] [address] Nov, [facility] [address] [id number] [address] [place] [address], [place] [address] Nov, [facility] [address] [id number] [address] [place] [address], [place] [address] Nov, [facility] [address] [id number] [address] [place] [address], [place] [address] Nov, [facility] [address] [id number] [address] [place] [address], [place] [address] 27 Oct, 2012 [facility] [address] [id number] [address] [place] [address], [place] [address] Oct, [facility] [address] [id number] [address] [place] [address], [place] [address] Oct, [facility] [address] [id number] [address] [place] [address], [place] [address] 26 Oct, 2012 [facility] [address] [id number] [address] [place] [address], [place] [address] 16 Oct, 2012 [facility] [address] [id number] [address] [place] [address], [place] [address] 14 Oct, 2012 [facility] [address] [id number] [address] [place] [address], [place] [address] 08 Oct, 2012 [facility] [address] [id number] [address] [place] [address], [place] [address] 07 Oct, 2012 [facility] [address] [id number] [address] [place] [address], [place] [address] 03 Oct, 2012 [facility] [address] [id number] [address] [place] [address], [place] [address] 30 Sep, 2012 [facility] [address] [id number] [address] [place] [address], [place] [address] Sep, [facility] [address] [id number] [address] [place] [address], [place] [address] Sep, [facility] [address] [id number] [address] [place] [address], [place] [address] Sep, [facility] [address] [id number] [address] [place] [address], [place] [address] Sep, [facility] [address] [id number] [address] [place] [address], [place] [address] 10 Sep, 2012 [facility] [address] [id number] [address] [place] [address], [place] [address] Sep, [facility] [address] [id number] [address] [place] [address], [place] [address] Sep, [facility] [address] [id number] [address] [place] [address], [place] [address] Aug, [facility] [address] [id number] [address] [place] [address], [place] [address] Aug, [facility] [address] [id number] [address] [place] [address], [place] [address] Aug, [facility] [address] [id number] [address] [place] [address], [place] [address] Aug, [facility] [address] [id number] [address] [place] [address], [place] [address] Aug, [facility] [address] [id number] [address] [place] [address], [place] [address] Aug, [facility] [address] [id number] [address] [place] [address], [place] [address] Aug, [facility] [address] [id number] [address] [place] [address], [place] [address] Aug, [facility] [address] [id number] [address] [place] [address], [place] [address] Jul, [facility] [address] [id number] [address] [place] [address], [place] [address] Jul, [facility] [address] [id number] [address] [place] [address], [place] [address] Jul, [facility] [address] [id number] [address] [place] [address], [place] [address] Jul, [facility] [address] [id number] [address] [place] [address], [place] [address] Jul, [facility] [address] [id number] [address] [place] [address], [place] [address] Jul, [facility] [address] [id number] [address] [place] [address], [place] [address] Jun, [facility] [address] [id number] [address] [place] [address], [place] [address] Jun, [facility] [address] [id number] [address] [place] [address], [place] [address] Jun, [facility] [address] [id number] [address] [place] [address], [place] [address] Jun, [facility] [address] [id number] [address] [place] [address], [place] [address] Jun, [facility] [address] [id number] [address] [place] [address], [place] [address] Jun, [facility] [address] [id number] [address] [place] [address], [place] [address] Jun, [facility] [address] [id number] [address] [place] [address], [place] [address] Jun, [facility] [address] [id number] [address] [place] [address], [place] [address] 10 Jun, 2012 [facility] [address] [id number] [address] [place] [address], [place] [address] 26 May, 2012 [facility] [address] [id number] [address] [place] [address], [place] [address] 24 May, 2012 [facility] [address] [id number] [address] [place] [address], [place] [address] 18 May, 2012 [facility] [address] [id number] [address] [place] [address], [place] [address] 30 Apr, 2012 [facility] [address] [id number] [address] [place] [address], [place] [address] Apr, [facility] [address] [id number] [address] [place] [address], [place] [address] 18 Apr, 2012 [facility] [address] [id number] [address] [place] [address], [place] [address] 14 Apr, 2012 [facility] [address] [id number] [address] [place] [address], [place] [address] Apr, [facility] [address] [id number] [address] [place] [address], [place] [address] Apr, [facility] [address] [id number] [address] [place] [address], [place] [address] Mar, [facility] [address] [id number] [address] [place] [address], [place] [address] Mar, [facility] [address] [id number] [address] [place] [address], [place] [address] Mar, [facility] [address] [id number] [address] [place] [address], [place] [address] Mar, [facility] [address] [id number] [address] [place] [address], [place] [address] Feb, [facility] [address] [id number] [address] [place] [address], [place] [address] Feb, [facility] [address] [id number] [address] [place] [address], [place] [address] Feb, [facility] [address] [id number] [address] [place] [address], [place] [address] Feb, [facility] [address] [id number] [address] [place] [address], [place] [address] Feb, [facility] [address] [id number] [address] [place] [address], [place] [address] January, [facility] [address] [id number] [address] [place] [address], [place] [address] January, [facility] [address] [id number] [address] [place] [address], [place] [address] January, [facility] [address] [id number] [address] [place] [address], [place] [address] January, [facility] [address] [id number] [address] [place] [address], [place] [address] January, [facility] [address] [id number] [address] [place] [address], [place] [address] January, [facility] [address] [id number] [address] [place] [address], [place] [address] Dec, [facility] [address] [id number] [address] [place] [address], [place] [address] Dec, [facility] [address] [id number] [address] [place] [address], [place] [address] Dec, [facility] [address] [id number] [address] [place] [address], [place] [address] Dec, [facility] [address] [id number] [address] [place] [address], [place] [address] Dec, [facility] [address] [id number] [address] [place] [address], [place] [address] Nov, [facility] [address] [id number] [address] [place] [address], [place] [address] Nov, [facility] [address] [id number] [address] [place] [address], [place] [address] Nov, [facility] [address] [id number] [address] [place] [address], [place] [address] Nov, [facility] [address] [id number] [address] [place] [address], [place] [address] Oct, [facility] [address] [id number] [address] [place] [address], [place] [address] Oct, [facility] [address] [id number] [address] [place] [address], [place] [address] Oct, [facility] [address] [id number] [address] [place] [address], [place] [address] Oct, [facility] [address] [id number] [address] [place] [address], [place] [address] Oct, [facility] [address] [id number] [address] [place] [address], [place] [address] Sep, [facility] [address] [id number] [address] [place] [address], [place] [address] Sep, [facility] [address] [id number] [address] [place] [address], [place] [address] Sep, [facility] [address] [id number] [address] [place] [address], [place] [address] Sep, [facility] [address] [id number] [address] [place] [address], [place] [address] Sep, [facility] [address] [id number] [address] [place] [address], [place] [address] Sep, [facility] [address] [id number] [address] [place] [address], [place] [address] Aug, [facility] [address] [id number] [address] [place] [address], [place] [address] Aug, [facility] [address] [id number] [address] [place] [address], [place] [address] Aug, [facility] [address] [id number] [address] [place] [address], [place] [address] Jul, [facility] [address] [id number] [address] [place] [address], [place] [address] Jul, [facility] [address] [id number] [address] [place] [address], [place] [address] Jul, [facility] [address] [id number] [address] [place] [address], [place] [address] Jul, [facility] [address] [id number] [address] [place] [address], [place] [address] Jun, [facility] [address] [id number] [address] [place] [address], [place] [address] 31 Jun, 2011 [facility] [address] [id number] [address] [place] [address], [place] [address] 18 Jun, 2011 [facility] [address] [id number] [address] [place] [address], [place] [address] 10 Jun, 2011 [facility] [address] [id number] [address] [place] [address], [place] [address] 10 Jun, 2011 [facility] [address] [id number] [address] [place] [address], [place] [address] 10 Jun, 2011 [facility] [address] [id number] [address] [place] [address], [place] [address] 11 Mar, 2011 [facility] [address] [id number] [address] [place] [address], [place] [address] 18 Dec, 2010 [facility] [address] [id number] [address] [place] [address], [place] [address] 11 Dec, 2010 [facility] [address] [id number] [address] [place] [address], [place] [address] 18 Nov, 2010 [facility] [address] [id number] [address] [place] [address], [place] [address] 16 Nov, 2010 [facility] [address] [id number] [address] [place] [address], [place] [address] Sep, [facility] [address] [id number] [address] [place] [address], [place] [address] Aug, [facility] [address] [id number] [address] [place] [address], [place] [address] Aug, [facility] [address] [id number] [address] [place] [address], [place] [address] Aug, [facility] [address] [id number] [address] [place] [address], [place] [address] Aug, [facility] [address] [id number] [address] [place] [address], [place] [address] 27 Aug, 2010 [facility] [address] [id number] [address] [place] [address], [place] [address] 14 Aug, 2010 [facility] [address] [id number] [address] [place] [address], [place] [address] 08 Aug, 2010 [facility] [address] [id number] [address] [place] [address], [place] [address] 08 Aug, 2010 [facility] [address] [id number] [address] [place] [address], [place] [address] 07 Aug, 2010 [facility] [address] [id number] [address] [place] [address], [place] [address] 06 Aug, 2010 [facility] [address] [id number] [address] [place] [address], [place] [address] 06 Aug, 2010 [facility] [address] [id number] [address] [place] [address], [place] [address] Aug, [facility] [address] [id number] [address] [place] [address], [place] [address] 30 Jul, 2010 [facility] [address] [id number] [address] [place] [address], [place] [address] 30 Jul, 2010 [facility] [address] [id number] [address] [place] [address], [place] [address] 30 Jul, 2010 [facility] [address] [id number] [address] [place] [address], [place] [address] 17 Jul, 2010 [facility] [address] [id number] [address] [place] [address], [place] [address] 08 Jul, 2010 [facility] [address] [id number] [address] [place] [address], [place] [address] Jul, [facility] [address] [id number] [address] [place] [address], [place] [address] 24 Jun, 2010 [facility] [address] [id number] [address] [place] [address], [place] [address] Jun, [facility] [address] [id number] [address] [place] [address], [place] [address] 19 Jun, 2010 [facility] [address] [id number] [address] [place] [address], [place] [address] 13 Jun, 2010 [facility] [address] [id number] [address] [place] [address], [place] [address] 16 Apr, 2010 [facility] [address] [id number] [address] [place] [address], [place] [address] Mar, [facility] [address] [id number] [address] [place] [address], [place] [address] 17 Feb, 2010 [facility] [address] [id number] [address] [place] [address], [place] [address] January, [facility] [address] [id number] [address] [place] [address], [place] [address] 15 Dec, 2009 [facility] [address] [id number] [address] [place] [address], [place] [address] Nov, [facility] [address] [id number] [address] [place] [address], [place] [address] Aug, [facility] [address] [id number] [address] [place] [address], [place] [address] Aug, [facility] [address] [id number] [address] [place] [address], [place] [address] Aug, [facility] [address] [id number] [address] [place] [address], [place] [address] Jul, [facility] [address] [id number] [address] [place] [address], [place] [address] Jul, [facility] [address] [id number] [address] [place] [address], [place] [address] Jul, [facility] [address] [id number] [address] [place] [address], [place] [address] 30 Jun, 2009 [facility] [address] [id number] [address] [place] [address], [place] [address] Jun, [facility] [address] [id number] [address] [place] [address] Jun, [facility] [address] [id number] [address] [place] [address] Jun, [facility] [address] [id number] [address] [place] [address] Jun, [facility] [address] [id number] [address] [place] [address] Jun, [facility] [address] [id number] [address] [place] [id number] Apr, [facility] [address] [id number] [place] [phone] Apr, [facility] [address] [id number] [address] [place] [id number] Feb, [facility] [address] [id number] [place] [id number] January, [facility] [address] [id number] [address] [place] [id number] Dec, IMMUNIZATIONS No Known Immunizations SOCIAL HISTORY Never Assessed REASON FOR VISIT PLAN OF CARE VITAL SIGNS MEDICATIONS Unknown Medications RESULTS No Results PROCEDURES Procedure Date Ordered Result Body Site PSYTX PT&/FAMILY 45 MINUTES Jun 25, 2014 INSTRUCTIONS MEDICATIONS ADMINISTERED No Known [...] to urinate 09/16/15 Hospitalization History [facility] inpatient mental health ea rly 2000's Hospitalization History hyperkalemia 10/2017 Hospitalization History fluid in lung
--- OUTSIDE RECORDS SUMMARY | 2020-03-01 17:15 | XMS REPORT ---
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 Name Role Phone JAZZ TREVOR Unavailable PROBLEMS Type Condition ICD9-CM Code OQA44-IM Code Onset Dates Condition S tatus SNOMED Code Problem Cough R05 Active 27118824 Problem Benign prostatic hyperplasia with lower urinary tract symptoms, unspecified morphology N40.1 Active 03375 6007 Problem Eustachian tube dysfunction, unspecified laterality H69.80 Active 04435183 Problem Chronic pain G89.29 Active 5902605 1 Problem DM neuro manif type II E11.49 Active 82565095 Problem Diabetes E11.9 Active 18770334 Problem Leukocytosis D72.829 Active 8249203 06 Problem Falling R29.6 Active 677512527 Problem Pressure ulcer of other site, stage 3 L89.893 Active 085581582 Problem 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 Active 330729127 Problem Eye exam abnormal R93.8 Active 16 7873291 Problem Dysuria R30.0 Active 15916943 Problem Hypokalemia E87.6 Active 70818070 Problem Morbid obesity E66.01 Active 87340 6002 Problem Anxiety F41.9 Active 50665865 Problem Diabetic polyneuropathy associated with type 2 d iabetes mellitus E11.42 Active 44612682 Problem Essential hypertension I10 Active 28751308 Problem Bilateral primary osteoarthritis of knee M17.0 Active 481224046 Problem Polyneuropathy associated with underlying disease G63 Active 353915423 Problem Anemia of chronic illness D63.8 Acti ve 299285940 Problem Lymphocytosis D72.820 Active 307769 09 Problem Retinal edema H35.81 Active 869674 6 Problem Chronic lymphocytic leukemia C91.10 A ctive 19833156 Problem Bipolar disorder, in partial remission, most rec ent episode depressed F31.75 Active 50231982 Problem Pure hypercholesterolemia E78.00 Acti ve 174698144 Problem Primary osteoarthritis of right knee M17.11 Active 156349432211130 Problem Bipolar disorder F31.9 Active 137 50293 Problem Bipolar I disorder, most recent episode (or curr ent) mixed, moderate F31.62 Active 88367001 Problem Chronic diastolic (congestive) heart failure I50.3 2 Active 884871694 Problem Reactive airway disease J45.909 Active 690847555047 Problem Insomnia, unspecified type G47.00 Act sharon 296827783 Problem Other chronic pain G89.29 Active 8 5008709 Problem Other iron deficiency anemia D50.8 A ctive 79675331 Problem Mild cognitive impairment G31.84 Acti ve 947132323 Problem Skin cancer C44.90 Active 65338079 7 ALLERGIES No Information ENCOUNTERS Encounter Location Date Diagnosis [facility] [id number] [place] [phone] Jun, [place] [address] [place] [id number] [place] [phone] Jun, [place] [address] [place] [id number] [place] [phone] May, [facility] [address] [place] [id number] [place] [phone] May, [place] [address] [place] [id number] [place] [id number] Apr, Chronic pain G89.29 and Bipo lar disorder F31.9 [facility] [address] [place] [id number] [place] [id number] Mar, Bipolar disorder F31.9 and C hronic pain G89.29 [facility] [address] [facility] [id number] [address] [place] [phone] Feb, Bipolar disorder F31.9 [place] [address] [facility] [id number] [address] [place] [id number] Feb, Cellulitis of right upper ex tremity L03.113 and Skin abrasion T14.8XXA [facility] [address] [facility] [id number] [address] [place] [phone] Feb, Bipolar disorder, in partial remission, most recent episode depressed F31.75 and Mild cognitive impairment G31.84 [facility] [address] [id number] [address] [place] [phone] Feb, Chronic pain G89.29 [facility] [address] [id number] [address] [place] [phone] Feb, Bipolar disorder, in partial remission, most recent episode depressed F31.75 and Mild cognitive impairment G31.84 [facility] [address] [id number] [address] [place] [phone] January, Bipolar disorder, in partial remission, most recent episode depressed F31.75 and Mild cognitive impairment G31.84 [facility] [address] [id number] [address] [place] [phone] January, Chronic pain G89.29 and Bipo lar disorder F31.9 [facility] [address] [id number] [address] [place] [phone] January, Bipolar disorder, in partial remission, most recent episode depressed F31.75 and Mild cognitive impairment G31.84 [facility] [address] [id number] [address] [place] [id number] Dec, [facility] [address] [id number] [address] [place] [phone] Dec, Chronic pain G89.29 and Bipo lar disorder F31.9 [facility] [address] [id number] [address] [place] [phone] Dec, Edema of both lower extremit ies R60.0 [facility] [address] [id number] [address] [place] [phone] Dec, Bipolar disorder F31.9 [facility] [address] [id number] [address] [place] [phone] Dec, Bipolar disorder, in partial remission, most recent episode depressed F31.75 and Mild cognitive impairment G31.84 [place] [address] [facility] [id number] [address] [place] [phone] Nov, [place] [address] [facility] [id number] [address] [place] [phone] Nov, Chronic pain G89.29 [place] [address] [facility] [id number] [address] [place] [phone] Nov, Bipolar disorder, in partial remission, most recent episode depressed F31.75 and Mild cognitive impairment G31.84 [place] [address] [facility] [id number] [address] [place] [phone] Nov, Bipolar disorder F31.9 [place] [address] [place] [id number] [place] [id number] 04 Nov, 2018 Encounter for Medicare annua [...] unspecified morphology N40.1 and Essential hypertension I10 [place] [address] [place] [id number] [place] [phone] Oct, Chronic pain G89.29 [place] [address] [facility] [id number] [address] [place] [phone] Oct, Diabetes E11.9 [place] [address] [facility] [id number] [address] [place] [phone] Oct, Bipolar I disorder, most rec ent episode (or current) mixed, moderate F31.62 and Mild cognitive impairment G31.84 [place] [address] [facility] [id number] [address] [place] [phone] Oct, Bipolar I disorder, most rec ent episode (or current) mixed, moderate F31.62 and Mild cognitive impairment G31.84 [facility] [address] [facility] [id number] [address] [place] [phone] Sep, Bipolar I disorder, most rec ent episode (or current) mixed, moderate F31.62 and Mild cognitive impairment G31.84 [place] [address] [place] [id number] [place] [phone] Sep, [place] [address] [place] [id number] [place] [phone] Sep, Diabetes E11.9 ; Hypoxia R09 .02 ; Hyperglycemia R73.9 ; Therapeutic drug monitoring Z51.81 ; BMI 50.0-59.9, adult Z68.43 and Skin cancer C44.90 [place] [address] [place] [id number] [place] [phone] Sep, Chronic pain G89.29 [place] [address] [place] [id number] [place] [phone] Sep, Bipolar I disorder, most rec ent episode (or current) mixed, moderate F31.62 [place] [address] [place] [id number] [place] [id number] Sep, [place] [address] [place] [id number] [place] [phone] Sep, [place] [address] [place] [id number] [place] [phone] Aug, Chronic pain G89.29 [place] [address] [facility] [id number] [address] [place] [phone] Aug, Bipolar I disorder, most rec ent episode (or current) mixed, moderate F31.62 [place] [address] [place] [id number] [place] [phone] Aug, Bipolar I disorder, most rec ent episode (or current) mixed, moderate F31.62 and Mild cognitive impairment G31.84 [place] [address] [place] [id number] [place] [id number] Jul, [facility] [address] [id number] [address] [place] [phone] Jul, Chronic pain G89.29 [facility] [address] [id number] [address] [place] [phone] Jul, Bipolar I disorder, most rec ent episode (or current) mixed, moderate F31.62 and Mild cognitive impairment G31.84 [facility] [address] [id number] [address] [place] [phone] Jul, Bipolar I disorder, most rec ent episode (or current) mixed, moderate F31.62 and MCI (mild cognitive impairment) G31.84 [facility] [address] [id number] [address] [place] [phone] Jul, [facility] [address] [id number] [address] [place] [phone] Jul, [facility] [address] [id number] [address] [place] [phone] Jul, Bipolar I disorder, most rec ent episode (or current) mixed, moderate F31.62 [facility] [address] [id number] [address] [place] [phone] Jul, Chronic pain G89.29 [facility] [address] [id number] [address] [place] [phone] Jun, Bipolar I disorder, most rec ent episode (or current) mixed, moderate F31.62 [facility] [address] [id number] [address] [place] [id number] Jun, Pre-procedure lab exam Z01.[address] [facility] [address] [id number] [address] [place] [phone] Jun, [facility] [address] [id number] [place] [address] [id number] Jun, [facility] [address] [place] [id number] [place] [id number] Jun, [facility] [address] [place] [id number] [place] [address] Jun, Forgetfulness R68.89 ; Pre-s yncope R55 ; Localized edema R60.0 ; Other iron deficiency anemia D50.8 and BMI 50.0-59.9, adult Z68.43 [place] [address] [place] [id number] [place] [address] Jun, Chronic pain G89.29 [place] [address] [place] [id number] [place] [address] Jun, Chronic pain G89.29 [place] [address] [place] [id number] [place] [phone] Jun, Bipolar I disorder, most rec ent episode (or current) mixed, moderate F31.62 [place] [address] [address] May, Chronic pain G89.29 [place] [address] [place] [id number] [place] [phone] Apr, [place] [address] [address] Apr, Chronic pain G89.29 [place] [address] [place] [id number] [place] [address] Apr, Primary osteoarthritis of ri ght knee M17.11 [place] [address] [place] [id number] [place] [phone] Mar, [place] [address] [place] [id number] [place] [address] Mar, BMI 50.0-59.9, adult Z68.43 and Bipolar disorder, in partial remission, most recent episode depressed F31.75 [place] [address] [place] [id number] [place] [address] Mar, Diabetes E11.9 ; Pure hyperc holesterolemia E78.00 ; Essential hypertension I10 ; Nausea with vomiting, unspecified R11.2 and Headache, unspecified headache type R51 [place] [address] [place] [id number] [place] [id number] Mar, Bipolar I disorder, most rec ent episode (or current) mixed, moderate F31.62 [place] [address] [place] [id number] [place] [id number] Mar, Bipolar I disorder, most rec ent episode (or current) mixed, moderate F31.62 [place] [address] [place] [id number] [place] [phone] Mar, Chronic pain G89.29 [place] [address] [place] [id number] [place] [id number] Mar, Bipolar I disorder, most rec ent episode (or current) mixed, moderate F31.62 [place] [address] [place] [id number] [place] [phone] Feb, Bipolar I disorder, most rec ent episode (or current) mixed, moderate F31.62 [place] [address] [place] [id number] [place] [phone] Feb, Chronic pain G89.29 [place] [address] [place] [id number] [place] [phone] Feb, Decubitus ulcer of right josselin t, stage 3 L89.893 and BMI 50.0-59.9, adult Z68.43 [place] [address] [place] [id number] [place] [phone] Feb, Bipolar I disorder, most rec ent episode (or current) mixed, moderate F31.62 [place] [address] [place] [id number] [place] [phone] Feb, [place] [address] [place] [id number] [place] [phone] January, [place] [address] [facility] [id number] [address] [place] [phone] January, Chronic pain G89.29 [facility] [address] [facility] [id number] [address] [place] [address] January, Bipolar I disorder, most rec ent episode (or current) mixed, moderate F31.62 [place] [address] [place] [id number] [place] [id number] January, Bipolar I disorder, most rec ent episode (or current) mixed, moderate F31.62 [place] [address] [facility] [id number] [address] [place] [id number] Dec, Bipolar I disorder, most rec ent episode (or current) mixed, moderate F31.62 and BMI 50.0-59.9, adult Z68.43 [place] [address] [place] [id number] [place] [phone] Dec, Bipolar I disorder, most rec ent episode (or current) mixed, moderate F31.62 [place] [address] [place] [id number] [place] [address] Dec, Chronic pain G89.29 [place] [address] [place] [id number] [place] [id number] Dec, DM neuro manif type II E11.4 9 ; Right flank pain R10.9 ; halfway 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 Z79.891 ; Encounter for medication monitoring Z51.81 and BMI 50.0-59.9, adult Z68.43 [place] [address] [place] [id number] [place] [id number] Dec, Bipolar I disorder, most rec ent episode (or current) mixed, moderate F31.62 [place] [address] [place] [id number] [place] [id number] Nov, Bipolar I disorder, most rec ent episode (or current) mixed, moderate F31.62 [place] [address] [place] [id number] [place] [phone] Nov, Chronic pain G89.29 [facility] [address] [facility] [id number] [address] [place] [phone] Nov, Bipolar I disorder, most rec ent episode (or current) mixed, moderate F31.62 [facility] [address] [facility] [id number] [address] [place] [phone] Nov, Hypokalemia E87.6 [facility] [address] [facility] [id number] [address] [place] [phone] Nov, Bipolar I disorder, most rec ent episode (or current) mixed, moderate F31.62 [facility] [address] [facility] [id number] [address] [place] [phone] Oct, Chronic pain G89.29 [facility] [address] [facility] [id number] [address] [place] [phone] Oct, BMI 50.0-59.9, adult Z68.43 and Bipolar I disorder, most recent episode (or current) mixed, moderate F31.62 [facility] [address] [facility] [id number] [address] [place] [phone] Oct, Bipolar I disorder, most rec ent episode (or current) mixed, moderate F31.62 [facility] [address] [facility] [id number] [address] [place] [phone] Oct, [facility] [address] [facility] [id number] [address] [place] [phone] Oct, Hypokalemia E87.6 [facility] [address] [facility] [id number] [address] [place] [phone] Oct, DM neuro manif type II E11.[address] [facility] [address] [facility] [id number] [address] [place] [phone] Oct, Bipolar I disorder, most rec ent episode (or current) mixed, moderate F31.62 [facility] [address] [id number] 20 Oct, 2017 Bipolar I disorder, most rec ent episode (or current) mixed, moderate F31.62 [place] [address] [address] 14 Oct, 2017 Hyperkalemia E87.5 ; Falling R29.6 ; BMI 50.0-59.9, adult Z68.43 and Acute left ankle pain M25.572 [place] [address] [id number] 08 Oct, 2017 DM neuro manif type II E11.[address] [address] Oct, [place] [address] [address] Sep, Chronic pain G89.29 [place] [address] [id number] Sep, [place] [address] [address] Sep, Bilateral primary osteoarthr itis of knee M17.[address] [address] Sep, Generalized edema R60.[address] [address] 16 Sep, 2017 Bipolar I disorder, most rec ent episode (or current) mixed, moderate F31.62 [place] [address] [id number] 15 Sep, 2017 Hypoxia R09.02 ; Other hyper volemia E87.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 [address] [facility] [id number] [address] [place] [phone] Sep, Bipolar I disorder, most rec ent episode (or current) mixed, moderate F31.62 [facility] [address] [facility] [id number] [address] [place] [phone] Aug, Chronic pain G89.29 [facility] [address] [facility] [id number] [address] [place] [address] Aug, Generalized edema R60.1 [place] [address] [place] [id number] [place] [phone] Aug, [facility] [address] [place] [id number] [place] [id number] Aug, [facility] [address] [place] [id number] [place] [id number] 14 Aug, 2017 Bipolar I disorder, most rec ent episode (or current) mixed, moderate F31.62 [place] [address] [facility] [id number] [address] [place] [phone] 07 Aug, 2017 Bipolar I disorder, most rec ent episode (or current) mixed, moderate F31.62 [place] [address] [place] [id number] [place] [id number] Aug, Chronic pain G89.29 [facility] [address] [facility] [id number] [address] [place] [phone] Jul, Bipolar I disorder, most rec ent episode (or current) mixed, moderate F31.62 [place] [address] [place] [id number] [place] [id number] Jul, Bipolar I disorder, most rec ent episode (or current) mixed, moderate F31.62 and BMI 60.0-69.9, adult Z68.44 [facility] [address] [place] [id number] [address] [place] [phone] Jul, Bipolar I disorder, most rec ent episode (or current) mixed, moderate F31.62 [facility] [address] [facility] [id number] [address] [place] [id number] Jul, Chronic pain G89.29 [facility] [address] [facility] [id number] [address] [place] [phone] Jul, Bipolar I disorder, most rec ent episode (or current) mixed, moderate F31.62 [facility] [address] [facility] [id number] [address] [place] [phone] Jun, Polyneuropathy associated wi th underlying disease G63 and Diabetes E11.9 [facility] [address] [facility] [id number] [address] [place] [phone] Jun, Bipolar I disorder, most rec ent episode (or current) mixed, moderate F31.62 [facility] [address] [place] [id number] [place] [phone] Jun, Chronic pain G89.29 [facility] [address] [facility] [id number] [address] [place] [phone] May, Bipolar I disorder, most rec ent episode (or current) mixed, moderate F31.62 [facility] [address] [facility] [id number] [address] [place] [phone] May, Bipolar I disorder, most rec ent episode (or current) mixed, moderate F31.62 [facility] [address] [facility] [id number] [address] [place] [phone] May, Diabetic polyneuropathy asso ciated with type [address] [facility] [address] [facility] [id number] [address] [place] [phone] 18 May, 2017 Bipolar I disorder, most rec ent episode (or current) mixed, moderate F31.62 [facility] [address] [facility] [id number] [address] [place] [id number] 13 May, 2017 Bipolar I disorder, most rec ent episode (or current) mixed, moderate F31.62 [facility] [address] [id number] [address] [place] [id number] May, Chronic pain G89.29 [facility] [address] [id number] [address] [place] [phone] Apr, Bipolar I disorder, most rec ent episode (or current) mixed, moderate F31.62 [facility] [address] [id number] [address] [place] [id number] Apr, [facility] [address] [id number] [address] [place] [id number] Apr, Chronic pain G89.29 and DM n euro manif type II E11.49 [facility] [address] [id number] [address] [place] [id number] Apr, [facility] [address] [id number] [address] [place] [phone] Apr, Bipolar I disorder, most rec ent episode (or current) mixed, moderate F31.62 [facility] [address] [id number] [address] [place] [phone] Apr, Chronic pain G89.29 [facility] [address] [id number] [address] [place] [id number] Apr, Iliotibial band syndrome, le ft M76.32 [facility] [facility] [address] [id number] [address] [place] [phone] Apr, Bipolar I disorder, most rec ent episode (or current) mixed, moderate F31.62 [facility] [address] [id number] [address] [place] [phone] Mar, Bipolar I disorder, most rec ent episode (or current) mixed, moderate F31.62 [facility] [address] [id number] [address] [place] [phone] Mar, Bipolar I disorder, most rec ent episode (or current) mixed, moderate F31.62 [facility] [address] [facility] [id number] [address] [place] [id number] Mar, [facility] [address] [id number] [address] [place] [phone] Mar, Bipolar I disorder, most rec ent episode (or current) mixed, moderate F31.62 [facility] [address] [place] [id number] [address] [place] [phone] Mar, Chronic pain G89.29 [facility] [address] [facility] [id number] [address] [place] [phone] Mar, Bipolar I disorder, most rec ent episode (or current) mixed, moderate F31.62 [facility] [address] [facility] [id number] [address] [place] [phone] Mar, Bipolar I disorder, most rec ent episode (or current) mixed, moderate F31.62 [facility] [address] [place] [id number] [address] [place] [phone] Mar, Acute pain of left knee M25. 562 ; Left hip pain M25.552 ; Generalized edema R60.1 and Tongue swelling R22.0 [facility] [address] [facility] [id number] [address] [place] [phone] Mar, [facility] [address] [facility] [id number] [address] [place] [phone] Feb, Chronic pain G89.29 [facility] [address] [facility] [id number] [address] [place] [phone] Feb, Diabetes E11.9 [facility] [address] [facility] [id number] [address] [place] [phone] January, Chronic pain G89.29 [facility] [address] [facility] [id number] [address] [place] [phone] January, [facility] [address] [facility] [id number] [address] [place] [phone] January, Bipolar I disorder, most rec ent episode (or current) mixed, moderate F31.62 [facility] [address] [id number] [address] [place] [phone] Dec, Bipolar I disorder, most rec ent episode (or current) mixed, moderate F31.62 [facility] [address] [id number] [address] [place] [phone] Dec, Chronic pain G89.29 [facility] [address] [facility] [id number] [address] [place] [phone] Dec, Bipolar I disorder, most rec ent episode (or current) mixed, moderate F31.62 [facility] [address] [id number] [address] [place] [phone] Dec, Diabetes E11.9 ; Essential h ypertension I10 ; Chronic pain G89.29 and Morbid obesity E66.01 [facility] [address] [facility] [id number] [address] [place] [phone] Dec, [facility] [address] [facility] [id number] [address] [place] [phone] Dec, Bipolar I disorder, most rec ent episode (or current) mixed, moderate F31.62 [facility] [address] [facility] [id number] [address] [place] [phone] Dec, Bipolar I disorder, most rec ent episode (or current) mixed, moderate F31.62 [facility] [address] [facility] [id number] [address] [place] [phone] Nov, Chronic pain G89.29 [facility] [address] [id number] [address] [place] [phone] Nov, Bipolar I disorder, most rec ent episode (or current) mixed, moderate F31.62 [facility] [address] [facility] [id number] [address] [place] [phone] Nov, [facility] [address] [facility] [id number] [address] [place] [phone] Nov, Bipolar I disorder, most rec ent episode (or current) mixed, moderate F31.62 [facility] [address] [facility] [id number] [address] [place] [phone] Nov, Bipolar I disorder, most rec ent episode (or current) mixed, moderate F31.62 [facility] [address] [facility] [id number] [address] [place] [phone] Nov, [facility] [address] [facility] [id number] [address] [place] [phone] Nov, [facility] [address] [facility] [id number] [address] [place] [phone] Nov, [facility] [address] [facility] [id number] [address] [place] [phone] Oct, Chronic pain G89.29 [facility] [address] [facility] [id number] [address] [place] [phone] Oct, Bipolar I disorder, most rec ent episode (or current) mixed, moderate F31.62 [facility] [address] [facility] [id number] [address] [place] [phone] Oct, 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 [address] [facility] [id number] [address] [place] [phone] Oct, [facility] [address] [facility] [id number] [address] [place] [phone] 06 Oct, [address] [facility] [address] [facility] [id number] [address] [place] [phone] Oct, Bipolar I disorder, most rec ent episode (or current) mixed, moderate F31.62 [facility] [address] [facility] [id number] [address] [place] [phone] Sep, Chronic pain G89.29 [facility] [address] [id number] [address] [place] [phone] Sep, Chronic pain G89.29 [facility] [address] [id number] [address] [place] [phone] Aug, Chronic pain G89.29 [facility] [address] [id number] [address] [place] [phone] Jul, [facility] [address] [facility] [id number] [address] [place] [phone] Jul, Diabetes E11.9 [facility] [address] [id number] [address] [place] [phone] Jul, Chronic pain G89.29 [facility] [address] [facility] [id number] [address] [place] [phone] Jul, Bipolar I disorder, most rec ent episode (or current) mixed, moderate F31.62 [facility] [address] [facility] [id number] [address] [place] [phone] Jun, Bipolar I disorder, most rec ent episode (or current) mixed, moderate F31.62 [facility] [address] [facility] [id number] [address] [place] [phone] Jun, [facility] [address] [facility] [id number] [address] [place] [phone] Jun, Bipolar I disorder, most rec ent episode (or current) mixed, moderate F31.62 [facility] [address] [facility] [id number] [address] [place] [id number] 30 May, 2016 Insomnia, unspecified type G 47.00 [facility] [address] [facility] [id number] [address] [place] [phone] May, Bipolar I disorder, most rec ent episode (or current) mixed, moderate F31.62 [facility] [address] [facility] [id number] [address] [place] [phone] 14 May, 2016 [facility] [address] [facility] [id number] [address] [place] [phone] May, Bipolar I disorder, most rec ent episode (or current) mixed, moderate F31.62 [place] [address] [place] [id number] [address] [place] [id number] May, Diabetes E11.9 and Essential hypertension I10 [place] [address] [place] [id number] [address] [place] [phone] Apr, Chronic pain G89.29 [place] [address] [place] [id number] [address] [place] [phone] Apr, Bipolar I disorder, most rec ent episode (or current) mixed, moderate F31.62 [place] [address] [place] [id number] [address] [place] [phone] Apr, [place] [address] [place] [id number] [place] [phone] Apr, [place] [address] [place] [id number] [address] [place] [phone] Mar, Chronic pain G89.29 ; Headac he, unspecified headache type R51 ; Neuropathy G62.9 ; Pain of right hip joint M25.551 and Essential hypertension I10 [place] [address] [place] [id number] [address] [place] [id number] Mar, Chronic pain G89.29 [place] [address] [place] [id number] [address] [place] [phone] Mar, Bipolar I disorder, most rec ent episode (or current) mixed, moderate F31.62 [place] [address] [place] [id number] [address] [place] [phone] Feb, Bipolar I disorder, most rec ent episode (or current) mixed, moderate F31.62 and Insomnia, unspecified type G47.00 [place] [address] [place] [id number] [address] [place] [id number] Feb, Chronic pain G89.29 [facility] [address] [id number] [address] [place] [phone] Feb, Bipolar I disorder, most rec ent episode (or current) mixed, moderate F31.62 [facility] [address] [id number] [address] [place] [phone] January, Bipolar I disorder, most rec ent episode (or current) mixed, moderate F31.62 [facility] [address] [id number] [address] [place] [phone] January, Chronic pain G89.29 [facility] [address] [id number] [address] [place] [phone] January, Chronic pain G89.29 and Esse ntial hypertension I10 [facility] [address] [id number] [address] [place] [phone] January, Bipolar I disorder, most rec ent episode (or current) mixed, moderate F31.62 [facility] [address] [id number] [address] [place] [phone] Dec, [facility] [address] [id number] [address] [place] [phone] Dec, [facility] [address] [facility] [id number] [address] [place] [phone] Dec, [facility] [address] [id number] [address] [place] [phone] Dec, [facility] [address] [facility] [id number] [address] [place] [phone] Nov, Reactive airway disease J45. [address] [facility] [address] [id number] [address] [place] [phone] Nov, [facility] [address] [facility] [id number] [address] [place] [phone] Nov, [facility] [address] [facility] [id number] [address] [place] [phone] Nov, [place] [address] [phone] Nov, [place] [address] [id number] Nov, Onychomycosis B35.1 ; Hammer toe M20.40 ; Tower or callus L84 and DM neuro manif type II E11.[address] [address] Nov, Chronic pain G89.29 ; Leukoc ytosis D72.829 and Diabetes E11.[address] [phone] Nov, [place] [address] [phone] Oct, Bronchitis J40 [place] [address] [id number] Oct, [place] [address] [phone] Oct, [address] [phone] Oct, Mastoiditis, unspecified lat erality H70.90 and Type 2 diabetes mellitus with complication E11.[address] [phone] Sep, [place] [address] [id number] Sep, Dysuria R30.0 ; Cough R05 ; Benign prostatic hyperplasia with lower urinary tract symptoms, unspecified morphology N40.1 ; Hypokalemia E87.6 and Eustachian tube dysfunction, unspecified laterality H69.[address] [address] Sep, Moderate mixed bipolar I dis order F31.62 [place] [address] [id number] [address] [place] [phone] Sep, Hypokalemia E87.6 [facility] [address] [id number] [address] [place] [phone] Sep, [facility] [address] [facility] [id number] [address] [place] [phone] Sep, Upper respiratory tract infe ction, unspecified type J06.9 [facility] [address] [id number] [address] [place] [phone] Aug, [facility] [address] [id number] [address] [place] [id number] Aug, Dysuria R30.0 [facility] [address] [id number] [address] [place] [id number] Aug, [facility] [address] [id number] [address] [place] [phone] Jul, [facility] [address] [id number] [address] [place] [phone] Jul, [facility] [address] [id number] [address] [place] [phone] Jul, [facility] [address] [id number] [address] [place] [phone] Jul, [facility] [address] [id number] [address] [place] [phone] Jun, [facility] [address] [id number] [address] [place] [phone] Jun, [facility] [address] [id number] [address] [place] [phone] Jun, [facility] [address] [id number] [address] [place] [phone] 29 May, 2015 [facility] [address] [id number] [address] [place] [phone] May, Bipolar I disorder, most rec ent episode (or current) mixed, moderate 296.62 [facility] [address] [id number] [address] [place] [phone] May, [facility] [address] [facility] [id number] [address] [place] [phone] May, Bipolar I disorder, most rec ent episode (or current) mixed, moderate 296.62 and Major depressive disorder, recurrent episode, severe, specified as with psychotic behavior 296.34 [facility] [address] [id number] [address] [place] [phone] May, Bipolar I disorder, most rec ent episode (or current) mixed, moderate 296.62 [facility] [address] [id number] [address] [place] [phone] May, [facility] [address] [facility] [id number] [address] [place] [phone] Apr, [facility] [address] [id number] [address] [place] [phone] Apr, [facility] [address] [facility] [id number] [address] [place] [phone] Apr, Unspecified disorder of kidn ey and ureter 593.9 and Diabetes mellitus type [address], [address] [facility] [address] [id number] [address] [place] [phone] Apr, [facility] [address] [facility] [id number] [address] [place] [phone] Apr, [facility] [address] [facility] [id number] [address] [place] [phone] Apr, [facility] [address] [facility] [id number] [address] [place] [phone] Apr, [facility] [address] [facility] [id number] [address] [place] [phone] Apr, Diabetes mellitus type II, u ncontrolled 250.02 [facility] [address] [id number] [address] [place] [phone] Apr, [facility] [address] [facility] [id number] [address] [place] [phone] Mar, [facility] [address] [facility] [id number] [address] [place] [id number] Mar, [facility] [address] [facility] [id number] [address] [place] [phone] Mar, [facility] [address] [facility] [id number] [address] [place] [phone] Mar, Major depressive disorder, r ecurrent episode, severe, specified as with psychotic behavior 296.34 and Bipolar I disorder, most recent episode (or current) mixed, moderate 296.62 [facility] [address] [facility] [id number] [address] [place] [phone] Mar, Diabetes 250.00 ; Anuria 788 .5 ; Nausea and vomiting 787.[address] [facility] [address] [facility] [id number] [address] [place] [phone] Mar, Diabetes 250.00 [facility] [address] [facility] [id number] [address] [place] [phone] Mar, [facility] [address] [facility] [id number] [address] [place] [phone] Mar, Diabetes 250.00 [facility] [address] [facility] [id number] [address] [place] [id number] Mar, [facility] [address] [facility] [id number] [address] [place] [phone] Mar, [facility] [address] [facility] [id number] [address] [place] [phone] Mar, [facility] [address] [facility] [id number] [address] [place] [id number] Mar, [facility] [address] [place] [address] [id number] Mar, Bipolar I disorder, most rec ent episode (or current) mixed, moderate 296.62 and Major depressive disorder, recurrent episode, severe, specified as with psychotic behavior 296.[address] [address] Mar, Magnesium deficiency 275.2 ; Hypokalemia 276.8 ; Nausea & vomiting 787.01 and Diabetes mellitus type 2, uncontrolled 250.[address] [address] Feb, [address] [address] Feb, Bipolar I disorder, most rec ent episode (or current) mixed, moderate 296.[address] [address] Feb, Nausea and vomiting 787.01 ; Left elbow pain 719.42 ; Anuria 788.5 and Diabetes 250.[address] [address] Feb, [address] [address] Feb, Hypopotassemia 276.8 and Hyp okalemia 276.[address] [address] Feb, Hypopotassemia 276.8 and Hyp okalemia 276.[address] [address] Feb, Seborrheic keratoses 702.[address] [address] Feb, Hypopotassemia 276.8 and Low magnesium levels 275.[address] [address] January, [facility] [address] [id number] [address] [place] [phone] January, [facility] [address] [id number] [address] [place] [phone] January, [facility] [address] [id number] [address] [place] [phone] January, Scalp lesion 709.9 [facility] [address] [id number] [address] [place] [phone] January, [facility] [address] [id number] [address] [place] [phone] Dec, Tear of medial cartilage or meniscus of knee, current 836.0 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 [facility] [address] [id number] [address] [place] [phone] Dec, [facility] [address] [id number] [address] [place] [phone] Dec, [facility] [address] [id number] [address] [place] [phone] Dec, Squamous cell carcinoma, 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 [facility] [address] [id number] [address] [place] [id number] Dec, [facility] [address] [id number] [address] [place] [id number] Dec, [facility] [address] [id number] [address] [place] [id number] Nov, [facility] [address] [id number] [address] [place] [id number] Nov, [facility] [address] [id number] [address] [place] [id number] Nov, [facility] [address] [id number] [address] [place] [id number] Nov, [facility] [address] [id number] [address] [place] [address], [place] [id number] 09 Nov, 2014 [facility] [address] [id number] [address] [place] [address], [place] [id number] Nov, 2014 [facility] [address] [id number] [address] [place] [address], [place] [id number] Nov, 2014 [facility] [address] [id number] [address] [place] [address], [place] [id number] Nov, 2014 [facility] [address] [id number] [address] [place] [address], [place] [id number] Nov, 2014 [facility] [address] [id number] [address] [place] [address], [place] [id number] Nov, 2014 [facility] [address] [id number] [address] [place] [address], [place] [id number] Nov, 2014 [facility] [address] [id number] [address] [place] [address], [place] [id number] Nov, 2014 [facility] [address] [id number] [address] [place] [address], [place] [id number] Oct, 2014 [facility] [address] [id number] [address] [place] [address], [place] [address] Oct, 2014 [facility] [address] [id number] [address] [place] [id number] Oct, 2014 [facility] [address] [id number] [address] [place] [address], [place] [id number] Oct, 2014 [facility] [address] [id number] [address] [place] [address], [place] [address] Oct, 2014 [facility] [address] [id number] [address] [place] [address], [place] [id number] Oct, 2014 [facility] [address] [id number] [address] [place] [address], [place] [address] Oct, 2014 [facility] [address] [id number] [address] [place] [id number] Oct, [facility] [address] [id number] [address] [place] [address], [place] [id number] Oct, [facility] [address] [id number] [address] [place] [address], [place] [address] Sep, [facility] [address] [id number] [address] [place] [address], [place] [address] Sep, [facility] [address] [id number] [address] [place] [address], [place] [address] Sep, [facility] [address] [id number] [address] [place] [address], [place] [address] Sep, [facility] [address] [id number] [address] [place] [address], [place] [address] Sep, [facility] [address] [id number] [address] [place] [address], [place] [address] Sep, [facility] [address] [id number] [address] [place] [address], [place] [address] Sep, [facility] [address] [id number] [address] [place] [address], [place] [address] Sep, [facility] [address] [id number] [address] [place] [address], [place] [address] Sep, [facility] [address] [id number] [address] [place] [address], [place] [address] Sep, [facility] [address] [id number] [address] [place] [address] Sep, [facility] [address] [id number] [address] [place] [address], [place] [address] Sep, [facility] [address] [id number] [address] [place] [address] Sep, [facility] [address] [id number] [address] [place] [address], [place] [address] Sep, [facility] [address] [id number] [facility] [place] [address] Sep, [facility] [address] [id number] [address] [place] [address], [place] [address] Sep, [facility] [address] [id number] [facility] [place] [address] Aug, [facility] [address] [id number] [address] [place] [address], [place] [address] Aug, [facility] [address] [id number] [address] [place] [address], [place] [address] Aug, [facility] [address] [id number] [address] [place] [address], [place] [address] Aug, [facility] [address] [id number] [address] [place] [address], [place] [address] Aug, [facility] [address] [id number] [address] [place] [address], [place] [address] Aug, [facility] [address] [id number] [address] [place] [address], [place] [address] Aug, [facility] [address] [id number] [address] [place] [address], [place] [address] Aug, [facility] [address] [id number] [address] [place] [address], [place] [address] Aug, [facility] [address] [id number] [address] [place] [address], [place] [address] Aug, [facility] [address] [id number] [address] [place] [address], [place] [address] Aug, [facility] [address] [place] [id number] 10 Aug, 2014 [facility] [address] [id number] [address] [place] [address], [place] [address] Aug, [facility] [address] [id number] [address] [place] [address], [place] [address] Aug, [facility] [address] [id number] [facility] [place] [address] Aug, [facility] [address] [id number] [facility] [place] [address] Aug, [facility] [address] [id number] [address] [place] [address], [place] [address] Aug, [facility] [address] [id number] [address] [place] [address], [place] [address] Aug, [facility] [address] [id number] [address] [place] [address], [place] [address] Aug, [facility] [address] [id number] [address] [place] [address], [place] [address] Aug, [facility] [address] [id number] [address] [place] [address], [place] [address] Aug, [facility] [address] [id number] [address] [place] [address], [place] [address] Aug, [facility] [address] [id number] [address] [place] [address], [place] [address] Aug, [facility] [address] [id number] [address] [place] [address], [place] [address] Aug, [facility] [address] [id number] [address] [place] [address], [place] [address] Aug, [facility] [address] [id number] [address] [place] [address], [place] [address] Aug, [facility] [address] [id number] [address] [place] [address], [place] [address] Aug, [facility] [address] [id number] [address] [place] [address], [place] [address] Aug, [facility] [address] [id number] [address] [place] [address], [place] [address] Aug, [facility] [address] [id number] [address] [place] [address] [address] Aug, [facility] [address] [id number] [address] [place] [address], [place] [address] Jul, [facility] [address] [id number] [address] [place] [address], [place] [address] Jul, [facility] [address] [id number] [address] [place] [address], [place] [address] Jul, [facility] [address] [id number] [address] [place] [address], [place] [address] Jul, [facility] [address] [id number] [address] [place] [address], [place] [address] Jul, [facility] [address] [id number] [address] [place] [address], [place] [address] Jul, [facility] [address] [id number] [address] [place] [address], [place] [address] Jul, [facility] [address] [id number] [address] [place] [address], [place] [address] Jul, [facility] [address] [id number] [address] [place] [address], [place] [address] Jul, [facility] [address] [id number] [address] [place] [address], [place] [address] Jul, [facility] [address] [id number] [address] [place] [address], [place] [address] Jun, [facility] [address] [id number] [address] [place] [address], [place] [address] Jun, [facility] [address] [id number] [address] [place] [address], [place] [address] Jun, [facility] [address] [id number] [address] [place] [address], [place] [address] 16 Jun, 2014 [facility] [address] [id number] [address] [place] [address], [place] [address] 15 Jun, 2014 [facility] [address] [id number] [address] [place] [address], [place] [address] 15 Jun, 2014 [facility] [address] [id number] [address] [place] [address], [place] [address] 05 Jun, 2014 [facility] [address] [id number] [address] [place] [address], [place] [address] Jun, [facility] [address] [id number] [address] [place] [address], [place] [address] Jun, [facility] [address] [id number] [address] [place] [address], [place] [address] Jun, [facility] [address] [id number] [address] [place] [address], [place] [address] 29 May, 2013 [facility] [address] [id number] [address] [place] [address], [place] [address] 29 Sep, 2013 [facility] [address] [id number] [address] [place] [address], [place] [address] 26 May, 2013 [facility] [address] [id number] [address] [place] [address], [place] [address] 26 Sep, 2013 [facility] [address] [id number] [address] [place] [address], [place] [address] 17 May, 2013 [facility] [address] [id number] [address] [place] [address], [place] [address] 17 Sep, 2013 [facility] [address] [id number] [address] [place] [address], [place] [address] 15 Sep, 2013 [facility] [address] [id number] [address] [place] [address], [place] [address] 15 Sep, 2013 [facility] [address] [id number] [address] [place] [address], [place] [address] 15 Sep, 2013 [facility] [address] [id number] [address] [place] [address], [place] [address] 15 Sep, 2013 [facility] [address] [id number] [address] [place] [address], [place] [address] 10 Sep, 2013 [facility] [address] [id number] [facility] [place] [address] May, [facility] [address] [id number] [facility] [place] [address] May, [facility] [address] [id number] [address] [place] [address], [place] [address] May, [facility] [address] [id number] [address] [place] [address], [place] [address] May, [facility] [address] [id number] [address] [place] [address], [place] [address] May, [facility] [address] [id number] [address] [place] [address], [place] [address] Apr, [facility] [address] [id number] [address] [place] [address], [place] [address] Apr, [facility] [address] [id number] [address] [place] [address], [place] [address] Apr, [facility] [address] [id number] [address] [place] [address], [place] [address] Apr, [facility] [address] [id number] [address] [place] [address], [place] [address] Apr, [facility] [address] [id number] [address] [place] [address], [place] [address] Apr, [facility] [address] [id number] [address] [place] [address], [place] [address] Apr, [facility] [address] [id number] [address] [place] [address], [place] [address] Apr, [facility] [address] [id number] [address] [place] [address], [place] [address] Apr, [facility] [address] [id number] [address] [place] [address], [place] [address] Apr, [facility] [address] [id number] [address] [place] [address], [place] [address] Apr, [facility] [address] [id number] [facility] [place] [address] Apr, [facility] [address] [id number] [address] [place] [address], [place] [address] Apr, [facility] [address] [id number] [address] [place] [address], [place] [address] Apr, [facility] [address] [id number] [address] [place] [address], [place] [address] Apr, [facility] [address] [id number] [address] [place] [address], [place] [address] Mar, [facility] [address] [id number] [address] [place] [address], [place] [address] Mar, [facility] [address] [id number] [address] [place] [address], [place] [address] Mar, [facility] [address] [id number] [address] [place] [address], [place] [address] Mar, [facility] [address] [id number] [address] [place] [address], [place] [address] Mar, [facility] [address] [id number] [address] [place] [address], [place] [address] Mar, [facility] [address] [id number] [address] [place] [address], [place] [address] Mar, [facility] [address] [id number] [address] [place] [address], [place] [address] Mar, [facility] [address] [id number] [address] [place] [address], [place] [address] Mar, [facility] [address] [id number] [address] [place] [address], [place] [address] Mar, [facility] [address] [id number] [address] [place] [address], [place] [address] Mar, [facility] [address] [id number] [facility] [place] [address] Mar, 2013 [facility] [address] [id number] [facility] [place] [address] Mar, 2013 [facility] [address] [id number] [facility] [place] [address] Mar, 2013 [facility] [address] [id number] [address] [place] [address], [place] [address] Mar, 2013 [facility] [address] [id number] [address] [place] [address], [place] [address] Mar, 2013 [facility] [address] [id number] [address] [place] [address], [place] [address] Mar, 2013 [facility] [address] [id number] [address] [place] [address], [place] [address] Mar, 2013 [facility] [address] [id number] [address] [place] [address], [place] [address] Feb, [facility] [address] [id number] [address] [place] [address], [place] [address] Feb, [facility] [address] [id number] [address] [place] [address], [place] [address] Feb, [facility] [address] [id number] [address] [place] [address], [place] [address] Feb, [facility] [address] [id number] [address] [place] [address], [place] [address] Feb, [facility] [address] [id number] [address] [place] [address], [place] [address] Feb, [facility] [address] [id number] [address] [place] [address], [place] [address] Feb, [facility] [address] [id number] [address] [place] [address], [place] [address] Feb, [facility] [address] [id number] [address] [place] [address], [place] [address] Feb, [facility] [address] [id number] [facility] [place] [address] Feb, [facility] [address] [id number] [address] [place] [address], [place] [address] Feb, [facility] [address] [id number] [address] [place] [address], [place] [address] Feb, [facility] [address] [id number] [address] [place] [address], [place] [address] Feb, [facility] [address] [id number] [address] [place] [address], [place] [address] Feb, [facility] [address] [id number] [address] [place] [address], [place] [address] January, [facility] [address] [id number] [address] [place] [address], [place] [address] January, [facility] [address] [id number] [address] [place] [address], [place] [address] January, [facility] [address] [id number] [address] [place] [address], [place] [address] January, [facility] [address] [id number] [address] [place] [address], [place] [address] January, [facility] [address] [id number] [address] [place] [address], [place] [address] January, [facility] [address] [id number] [address] [place] [address], [place] [address] January, [facility] [address] [id number] [address] [place] [address], [place] [address] January, [facility] [address] [id number] [address] [place] [address], [place] [address] January, [facility] [address] [id number] [address] [place] [address], [place] [address] January, [facility] [address] [id number] [address] [place] [address], [place] [address] January, [facility] [address] [id number] [facility] [place] [address] January, [facility] [address] [id number] [address] [place] [address], [place] [address] January, [facility] [address] [id number] [address] [place] [address], [place] [address] January, [facility] [address] [id number] [address] [place] [address], [place] [address] Dec, [facility] [address] [id number] [address] [place] [address], [place] [address] Dec, [facility] [address] [id number] [address] [place] [address], [place] [address] Dec, [facility] [address] [id number] [address] [place] [address], [place] [address] Dec, [facility] [address] [id number] [address] [place] [address], [place] [address] Dec, [facility] [address] [id number] [address] [place] [address], [place] [address] Dec, [facility] [address] [id number] [address] [place] [address], [place] [address] Dec, [facility] [address] [id number] [address] [place] [address], [place] [address] Dec, [facility] [address] [id number] [address] [place] [address], [place] [address] Dec, [facility] [address] [id number] [address] [place] [address], [place] [address] Dec, [facility] [address] [id number] [address] [place] [address], [place] [address] Nov, [facility] [address] [id number] [address] [place] [address], [place] [address] Nov, [facility] [address] [id number] [facility] [place] [address] 10 Nov, 2013 [facility] [address] [id number] [facility] [place] [address] 10 Nov, 2013 [facility] [address] [id number] [facility] [place] [address] 08 Nov, 2013 [facility] [address] [id number] [address] [place] [address], [place] [address] 08 Nov, 2013 [facility] [address] [id number] [address] [place] [address], [place] [address] Nov, [facility] [address] [id number] [address] [place] [address], [place] [address] Nov, [facility] [address] [id number] [address] [place] [address], [place] [address] Nov, [facility] [address] [id number] [address] [place] [address], [place] [address] Nov, [facility] [address] [id number] [address] [place] [address], [place] [address] Oct, [facility] [address] [id number] [address] [place] [address], [place] [address] Oct, [facility] [address] [id number] [address] [place] [address], [place] [address] Oct, [facility] [address] [id number] [address] [place] [address], [place] [address] Oct, [facility] [address] [id number] [address] [place] [address], [place] [address] Oct, [facility] [address] [id number] [address] [place] [address], [place] [address] 20 Oct, 2013 [facility] [address] [id number] [address] [place] [address], [place] [address] 14 Oct, 2013 [facility] [address] [id number] [address] [place] [address], [place] [address] 14 Oct, 2013 [facility] [address] [id number] [address] [place] [address], [place] [address] 05 Oct, 2013 [facility] [address] [id number] [address] [place] [address], [place] [address] 05 Oct, 2013 [facility] [address] [id number] [address] [place] [address], [place] [address] Oct, [facility] [address] [id number] [address] [place] [address], [place] [address] Oct, [facility] [address] [id number] [address] [place] [address], [place] [address] Oct, [facility] [address] [id number] [address] [place] [address], [place] [address] Oct, [facility] [address] [id number] [address] [place] [address], [place] [address] Sep, [facility] [address] [id number] [address] [place] [address], [place] [address] Sep, [facility] [address] [id number] [address] [place] [address], [place] [address] Sep, [facility] [address] [id number] [address] [place] [address], [place] [address] 15 Sep, 2013 [facility] [address] [id number] [address] [place] [address], [place] [address] Sep, [facility] [address] [id number] [address] [place] [address], [place] [address] Sep, [facility] [address] [id number] [address] [place] [address], [place] [address] Sep, [facility] [address] [id number] [address] [place] [address], [place] [address] Sep, [facility] [address] [id number] [address] [place] [address], [place] [address] 08 Sep, 2013 [facility] [address] [id number] [address] [place] [address], [place] [address] 08 Sep, 2013 [facility] [address] [id number] [address] [place] [address], [place] [address] Aug, [facility] [address] [id number] [address] [place] [address], [place] [address] Aug, [facility] [address] [id number] [address] [place] [address], [place] [address] Jul, [facility] [address] [id number] [address] [place] [address], [place] [address] Jul, [facility] [address] [id number] [address] [place] [address], [place] [address] Jul, [facility] [address] [id number] [address] [place] [address], [place] [address] Jul, [facility] [address] [id number] [address] [place] [address], [place] [address] Jul, [facility] [address] [id number] [address] [place] [address], [place] [address] Jul, [facility] [address] [id number] [address] [place] [address], [place] [address] Jul, [facility] [address] [id number] [address] [place] [address], [place] [address] Jul, [facility] [address] [id number] [address] [place] [address] Jul, [facility] [address] [id number] [address] [place] [address], [place] [address] Jul, [facility] [address] [id number] [address] [place] [address], [place] [address] Jul, [facility] [address] [id number] [address] [place] [id number] Jul, [facility] [address] [id number] [address] [place] [id number] Jul, 2012 [facility] [address] [id number] [address] [place] [address], [place] [address] Jul, 2012 [facility] [address] [id number] [address] [place] [address] Jul, 2012 [facility] [address] [id number] [address] [place] [id number] Jul, 2012 [facility] [address] [id number] [address] [place] [id number] Jul, 2012 [facility] [address] [id number] [address] [place] [address], [place] [address] Jul, [facility] [address] [id number] [address] [place] [id number] Jul, [facility] [address] [id number] [address] [place] [id number] Jun, 2012 [facility] [address] [id number] [address] [place] [id number] 16 Jun, 2012 [facility] [address] [id number] [address] [place] [id number] 16 Jun, 2012 [facility] [address] [id number] [address] [place] [id number] 16 Jun, 2012 [facility] [address] [id number] [address] [place] [id number] 16 Jun, 2012 [facility] [facility] [address] [id number] [address] [place] [address] 16 Jun, 2012 [facility] [address] [id number] [address] [place] [address] 10 Jun, 2012 [facility] [address] [id number] [address] [place] [address] 10 Jun, 2012 [facility] [address] [id number] [address] [place] [address] 09 Jun, 2012 [facility] [address] [id number] [address] [place] [address], [place] [address] Jun, [facility] [address] [id number] [address] [place] [address], [place] [address] Jun, [facility] [address] [id number] [address] [place] [address], [place] [address] May, 2012 [facility] [address] [id number] [address] [place] [address], [place] [address] May, 2012 [facility] [address] [id number] [address] [place] [address], [place] [address] May, 2012 [facility] [address] [id number] [address] [place] [address], [place] [address] 17 May, 2012 [facility] [address] [id number] [address] [place] [address], [place] [address] May, [facility] [address] [id number] [address] [place] [address], [place] [address] May, [facility] [address] [id number] [address] [place] [address], [place] [address] May, [facility] [address] [id number] [address] [place] [address], [place] [address] May, [facility] [address] [id number] [address] [place] [address], [place] [address] Apr, [facility] [address] [id number] [address] [place] [address], [place] [address] Apr, [facility] [address] [id number] [address] [place] [address], [place] [address] Apr, [facility] [address] [id number] [address] [place] [address], [place] [address] Apr, [facility] [address] [id number] [address] [place] [address], [place] [address] Apr, [facility] [address] [id number] [address] [place] [address], [place] [address] Mar, [facility] [address] [id number] [address] [place] [address], [place] [address] Mar, [facility] [address] [id number] [address] [place] [address], [place] [address] Mar, [facility] [address] [id number] [address] [place] [address], [place] [address] Mar, [facility] [address] [id number] [address] [place] [address], [place] [address] Mar, [facility] [address] [id number] [address] [place] [address], [place] [address] Mar, [facility] [address] [id number] [address] [place] [address], [place] [address] Mar, [facility] [address] [id number] [address] [place] [address], [place] [address] Mar, [facility] [address] [id number] [address] [place] [address], [place] [address] Feb, [facility] [address] [id number] [address] [place] [address], [place] [address] Feb, [facility] [address] [id number] [address] [place] [address], [place] [address] January, [facility] [address] [id number] [address] [place] [address], [place] [address] January, [facility] [address] [id number] [address] [place] [address], [place] [address] Dec, [facility] [address] [id number] [address] [place] [address], [place] [address] Dec, [facility] [address] [id number] [address] [place] [address], [place] [address] Nov, [facility] [address] [id number] [address] [place] [address], [place] [address] Nov, [facility] [address] [id number] [address] [place] [address], [place] [address] Nov, [facility] [address] [id number] [address] [place] [address], [place] [address] Nov, [facility] [address] [id number] [address] [place] [address], [place] [address] 27 Oct, 2012 [facility] [address] [id number] [address] [place] [address], [place] [address] Oct, [facility] [address] [id number] [address] [place] [address], [place] [address] Oct, [facility] [address] [id number] [address] [place] [address], [place] [address] 26 Oct, 2012 [facility] [address] [id number] [address] [place] [address], [place] [address] 16 Oct, 2012 [facility] [address] [id number] [address] [place] [address], [place] [address] 14 Oct, 2012 [facility] [address] [id number] [address] [place] [address], [place] [address] 08 Oct, 2012 [facility] [address] [id number] [address] [place] [address], [place] [address] 07 Oct, 2012 [facility] [address] [id number] [address] [place] [address], [place] [address] 03 Oct, 2012 [facility] [address] [id number] [address] [place] [address], [place] [address] Sep, [facility] [address] [id number] [address] [place] [address], [place] [address] Sep, [facility] [address] [id number] [address] [place] [address], [place] [address] Sep, [facility] [address] [id number] [address] [place] [address], [place] [address] Sep, [facility] [address] [id number] [address] [place] [address], [place] [address] 17 Sep, 2012 [facility] [address] [id number] [address] [place] [address], [place] [address] 10 Sep, 2012 [facility] [address] [id number] [address] [place] [address], [place] [address] 09 Sep, 2012 [facility] [address] [id number] [address] [place] [address], [place] [address] Sep, [facility] [address] [id number] [address] [place] [address], [place] [address] Aug, [facility] [address] [id number] [address] [place] [address], [place] [address] Aug, [facility] [address] [id number] [address] [place] [address], [place] [address] Aug, [facility] [address] [id number] [address] [place] [address], [place] [address] Aug, [facility] [address] [id number] [address] [place] [address], [place] [address] Aug, [facility] [address] [id number] [address] [place] [address], [place] [address] Aug, [facility] [address] [id number] [address] [place] [address], [place] [address] Aug, [facility] [address] [id number] [address] [place] [address], [place] [address] Aug, [facility] [address] [id number] [address] [place] [address], [place] [address] Jul, [facility] [address] [id number] [address] [place] [address], [place] [address] Jul, [facility] [address] [id number] [address] [place] [address], [place] [address] Jul, [facility] [address] [id number] [address] [place] [address], [place] [address] Jul, [facility] [address] [id number] [address] [place] [address], [place] [address] Jul, [facility] [address] [id number] [address] [place] [address], [place] [address] Jul, [facility] [address] [id number] [address] [place] [address], [place] [address] Jun, [facility] [address] [id number] [address] [place] [address], [place] [address] Jun, [facility] [address] [id number] [address] [place] [address], [place] [address] Jun, [facility] [address] [id number] [address] [place] [address], [place] [address] Jun, [facility] [address] [id number] [address] [place] [address], [place] [address] Jun, [facility] [address] [id number] [address] [place] [address], [place] [address] Jun, [facility] [address] [id number] [address] [place] [address], [place] [address] Jun, [facility] [address] [id number] [address] [place] [address], [place] [address] Jun, [facility] [address] [id number] [address] [place] [address], [place] [address] 10 Jun, 2012 [facility] [address] [id number] [address] [place] [address], [place] [address] 26 May, 2012 [facility] [address] [id number] [address] [place] [address], [place] [address] 24 May, 2012 [facility] [address] [id number] [address] [place] [address], [place] [address] 18 May, 2012 [facility] [address] [id number] [address] [place] [address], [place] [address] 30 Apr, 2012 [facility] [address] [id number] [address] [place] [address], [place] [address] Apr, [facility] [address] [id number] [address] [place] [address], [place] [address] Apr, [facility] [address] [id number] [address] [place] [address], [place] [address] Apr, [facility] [address] [id number] [address] [place] [address], [place] [address] Apr, [facility] [address] [id number] [address] [place] [address], [place] [address] Apr, [facility] [address] [id number] [address] [place] [address], [place] [address] Mar, [facility] [address] [id number] [address] [place] [address], [place] [address] Mar, [facility] [address] [id number] [address] [place] [address], [place] [address] Mar, [facility] [address] [id number] [address] [place] [address], [place] [address] Mar, [facility] [address] [id number] [address] [place] [address], [place] [address] Feb, [facility] [address] [id number] [address] [place] [address], [place] [address] Feb, [facility] [address] [id number] [address] [place] [address], [place] [address] Feb, [facility] [address] [id number] [address] [place] [address], [place] [address] Feb, [facility] [address] [id number] [address] [place] [address], [place] [address] Feb, [facility] [address] [id number] [address] [place] [address], [place] [address] January, [facility] [address] [id number] [address] [place] [address], [place] [address] January, [facility] [address] [id number] [address] [place] [address], [place] [address] January, [facility] [address] [id number] [address] [place] [address], [place] [address] January, [facility] [address] [id number] [address] [place] [address], [place] [address] January, [facility] [address] [id number] [address] [place] [address], [place] [address] January, [facility] [address] [id number] [address] [place] [address], [place] [address] Dec, [facility] [address] [id number] [address] [place] [address], [place] [address] Dec, [facility] [address] [id number] [address] [place] [address], [place] [address] Dec, [facility] [address] [id number] [address] [place] [address], [place] [address] Dec, [facility] [address] [id number] [address] [place] [address], [place] [address] Dec, [facility] [address] [id number] [address] [place] [address], [place] [address] Nov, [facility] [address] [id number] [address] [place] [address], [place] [address] Nov, [facility] [address] [id number] [address] [place] [address], [place] [address] Nov, [facility] [address] [id number] [address] [place] [address], [place] [address] Nov, [facility] [address] [id number] [address] [place] [address], [place] [address] Oct, [facility] [address] [id number] [address] [place] [address], [place] [address] Oct, [facility] [address] [id number] [address] [place] [address], [place] [address] Oct, [facility] [address] [id number] [address] [place] [address], [place] [address] 13 Oct, 2011 [facility] [address] [id number] [address] [place] [address], [place] [address] Oct, [facility] [address] [id number] [address] [place] [address], [place] [address] Sep, [facility] [address] [id number] [address] [place] [address], [place] [address] Sep, [facility] [address] [id number] [address] [place] [address], [place] [address] Sep, [facility] [address] [id number] [address] [place] [address], [place] [address] Sep, [facility] [address] [id number] [address] [place] [address], [place] [address] Sep, [facility] [address] [id number] [address] [place] [address], [place] [address] Sep, [facility] [address] [id number] [address] [place] [address], [place] [address] Aug, [facility] [address] [id number] [address] [place] [address], [place] [address] Aug, [facility] [address] [id number] [address] [place] [address], [place] [address] Aug, [facility] [address] [id number] [address] [place] [address], [place] [address] Jul, [facility] [address] [id number] [address] [place] [address], [place] [address] Jul, [facility] [address] [id number] [address] [place] [address], [place] [address] Jul, [facility] [address] [id number] [address] [place] [address], [place] [address] Jul, [facility] [address] [id number] [address] [place] [address] [address] 31 Jun, 2011 [facility] [address] [id number] [address] [place] [address], [place] [address] 31 Jun, 2011 [facility] [address] [id number] [address] [place] [address], [place] [address] 18 Jun, 2011 [facility] [address] [id number] [address] [place] [address], [place] [address] 10 Jun, 2011 [facility] [address] [id number] [address] [place] [address], [place] [address] 10 Jun, 2011 [facility] [address] [id number] [address] [place] [address], [place] [address] 10 Jun, 2011 [facility] [address] [id number] [address] [place] [address], [place] [address] 11 Mar, 2011 [facility] [address] [id number] [address] [place] [address], [place] [address] 18 Dec, 2010 [facility] [address] [id number] [address] [place] [address], [place] [address] 11 Dec, 2010 [facility] [address] [id number] [address] [place] [address], [place] [address] 18 Nov, 2010 [facility] [address] [id number] [address] [place] [address], [place] [address] 16 Nov, 2010 [facility] [address] [id number] [address] [place] [address], [place] [address] Sep, [facility] [address] [id number] [address] [place] [address], [place] [address] Aug, [facility] [address] [id number] [address] [place] [address], [place] [address] Aug, [facility] [address] [id number] [address] [place] [address], [place] [address] Aug, [facility] [address] [id number] [address] [place] [address], [place] [address] Aug, [facility] [address] [id number] [address] [place] [address], [place] [address] 27 Aug, 2010 [facility] [address] [id number] [address] [place] [address], [place] [address] 14 Aug, 2010 [facility] [address] [id number] [address] [place] [address], [place] [address] 08 Aug, 2010 [facility] [address] [id number] [address] [place] [address], [place] [address] 08 Aug, 2010 [facility] [address] [id number] [address] [place] [address], [place] [address] 07 Aug, 2010 [facility] [address] [id number] [address] [place] [address], [place] [address] 06 Aug, 2010 [facility] [address] [id number] [address] [place] [address], [place] [address] Aug, [facility] [address] [id number] [address] [place] [address], [place] [address] Aug, [facility] [address] [id number] [address] [place] [address], [place] [address] 30 Jul, 2010 [facility] [address] [id number] [address] [place] [address], [place] [address] 30 Jul, 2010 [facility] [address] [id number] [address] [place] [address], [place] [address] 30 Jul, 2010 [facility] [address] [id number] [address] [place] [address], [place] [address] 17 Jul, 2010 [facility] [address] [id number] [address] [place] [id number] Jul, [facility] [address] [id number] [address] [place] [address], [place] [address] Jul, [facility] [address] [id number] [address] [place] [address], [place] [address] Jun, [facility] [address] [id number] [address] [place] [id number] Jun, [facility] [address] [id number] [address] [place] [address], [place] [address] 19 Jun, 2010 [facility] [address] [id number] [address] [place] [address], [place] [address] 13 Jun, 2010 [facility] [address] [id number] [address] [place] [address], [place] [address] 16 Apr, 2010 [facility] [address] [id number] [address] [place] [address], [place] [address] Mar, [facility] [address] [id number] [address] [place] [address], [place] [address] 17 Feb, 2010 [facility] [address] [id number] [address] [place] [address], [place] [address] January, [facility] [address] [id number] [address] [place] [address], [place] [address] 15 Dec, 2009 [facility] [address] [id number] [address] [place] [address], [place] [address] Nov, [facility] [address] [id number] [address] [place] [address], [place] [address] Aug, [facility] [address] [id number] [address] [place] [address], [place] [address] Aug, [facility] [address] [id number] [address] [place] [address], [place] [address] Aug, [facility] [address] [id number] [address] [place] [address], [place] [address] Jul, [facility] [address] [id number] [address] [place] [address], [place] [address] Jul, [facility] [address] [id number] [address] [place] [address], [place] [address] Jul, [facility] [address] [id number] [address] [place] [address], [place] [address] 30 Jun, 2009 [facility] [address] [id number] [address] [place] [id number] Jun, [facility] [address] [id number] [address] [place] [id number] Jun, [facility] [address] [id number] [address] [place] [id number] Jun, [facility] [address] [id number] [address] [place] [id number] Jun, [facility] [address] [id number] [address] [place] [id number] Jun, [facility] [address] [id number] [address] [place] [id number] Apr, [facility] [address] [id number] [address] [place] [id number] Apr, [facility] [address] [id number] [address] [place] [phone] Feb, [facility] [address] [id number] [address] [place] [id number] January, [facility] [address] [id number] [address] [place] [id number] Dec, IMMUNIZATIONS No Known Immunizations SOCIAL HISTORY [...] obesity Medical History skin cancer-basal cell R congregational (removed ) Medical History Arthritis Medical History [...]
--- OUTSIDE RECORDS SUMMARY | 2020-03-01 17:15 | XMS REPORT ---
Author Michele Fuentes Organization [facility] Address [address] [place] [address] Care Team Providers Care Account Assistant Name Role Phone TOBY ROSELINE Unavailable PROBLEMS Type Condition ICD9-CM Code VCS19-JL Code Onset Dates Condition S tatus SNOMED Code Problem Cough R05 Active 19647451 Problem Benign prostatic hyperplasia with lower urinary tract symptoms, unspecified morphology N40.1 Active 74076 6007 Problem Eustachian tube dysfunction, unspecified laterality H69.80 Active 45341729 Problem Chronic pain G89.29 Active 4085488 1 Problem DM neuro manif type II E11.49 Active 47241931 Problem Diabetes E11.9 Active 19385722 Problem Leukocytosis D72.829 Active 0306508 06 Problem Falling R29.6 Active 537928528 Problem Pressure ulcer of other site, stage 3 L89.893 Active 162761629 Problem 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 Active 852940957 Problem Eye exam abnormal R93.8 Active 16 1395690 Problem Dysuria R30.0 Active 96375080 Problem Hypokalemia E87.6 Active 52368829 Problem Morbid obesity E66.01 Active 97861 6002 Problem Anxiety F41.9 Active 07672018 Problem Diabetic polyneuropathy associated with type 2 d iabetes mellitus E11.42 Active 97342523 Problem Essential hypertension I10 Active 23545876 Problem Bilateral primary osteoarthritis of knee M17.0 Active 836325014 Problem Polyneuropathy associated with underlying disease G63 Active 780021589 Problem Anemia of chronic illness D63.8 Acti ve 537886592 Problem Lymphocytosis D72.820 Active 421106 09 Problem Retinal edema H35.81 Active 074481 6 Problem Chronic lymphocytic leukemia C91.10 A ctive 80758912 Problem Bipolar disorder, in partial remission, most rec ent episode depressed F31.75 Active 56513671 Problem Pure hypercholesterolemia E78.00 Acti ve 034500931 Problem Primary osteoarthritis of right knee M17.11 Active 009730358248732 Problem Bipolar disorder F31.9 Active 137 41120 Problem Bipolar I disorder, most recent episode (or curr ent) mixed, moderate F31.62 Active 28223336 Problem Chronic diastolic (congestive) heart failure I50.3 2 Active 358342712 Problem Reactive airway disease J45.909 Active 877716874982 Problem Insomnia, unspecified type G47.00 Act sharon 511921661 Problem Other chronic pain G89.29 Active 8 4306301 Problem Other iron deficiency anemia D50.8 A ctive 65173537 Problem Mild cognitive impairment G31.84 Acti ve 171229125 Problem Skin cancer C44.90 Active 97650734 7 ALLERGIES No Information ENCOUNTERS Encounter Location Date Diagnosis [facility] [address] [address] Jun, [facility] [address] [place] [id number] [place] [address] Jun, [facility] [address] [place] [id number] [place] [address] May, [facility] [address] [place] [id number] [place] [address] May, [place] [address] [place] [id number] [place] [address] Apr, Chronic pain G89.29 and Bipo lar disorder F31.9 [facility] [address] [place] [id number] [place] [address] Mar, Bipolar disorder F31.9 and C hronic pain G89.29 [facility] [address] [facility] [id number] [address] [place] [address] Feb, Bipolar disorder F31.9 [facility] [address] [place] [id number] [address] [place] [address] Feb, Cellulitis of right upper ex tremity L03.113 and Skin abrasion T14.8XXA [facility] [address] [place] [id number] [address] [place] [address] Feb, Bipolar disorder, in partial remission, most recent episode depressed F31.75 and Mild cognitive impairment G31.84 [facility] [address] [id number] [address] [place] [address] Feb, Chronic pain G89.29 [facility] [address] [id number] [address] [place] [address] Feb, Bipolar disorder, in partial remission, most recent episode depressed F31.75 and Mild cognitive impairment G31.84 [facility] [address] [id number] [address] [place] [address] January, Bipolar disorder, in partial remission, most recent episode depressed F31.75 and Mild cognitive impairment G31.84 [facility] [address] [id number] [address] [place] [address] January, Chronic pain G89.29 and Bipo lar disorder F31.9 [facility] [address] [id number] [address] [place] [address] January, Bipolar disorder, in partial remission, most recent episode depressed F31.75 and Mild cognitive impairment G31.84 [facility] [address] [id number] [address] [place] [address] Dec, [facility] [address] [id number] [address] [place] [address] Dec, Chronic pain G89.29 and Bipo lar disorder F31.9 [facility] [address] [id number] [address] [place] [address] Dec, Edema of both lower extremit ies R60.0 [facility] [address] [id number] [address] [place] [address] Dec, Bipolar disorder F31.9 [facility] [address] [id number] [address] [place] [address] Dec, Bipolar disorder, in partial remission, most recent episode depressed F31.75 and Mild cognitive impairment G31.84 [place] [address] [facility] [id number] [address] [place] [address] Nov, [place] [address] [facility] [id number] [address] [place] [address] Nov, Chronic pain G89.29 [place] [address] [facility] [id number] [address] [place] [address] Nov, Bipolar disorder, in partial remission, most recent episode depressed F31.75 and Mild cognitive impairment G31.84 [place] [address] [place] [id number] [address] [place] [address] Nov, Bipolar disorder F31.9 [place] [address] [place] [id number] [address] [place] [address] 04 Nov, 2018 Encounter for Medicare annua [...] unspecified morphology N40.1 and Essential hypertension I10 [place] [address] [place] [id number] [address] [place] [address] Oct, Chronic pain G89.29 [place] [address] [place] [id number] [address] [place] [address] Oct, Diabetes E11.9 [place] [address] [facility] [id number] [address] [place] [address] Oct, Bipolar I disorder, most rec ent episode (or current) mixed, moderate F31.62 and Mild cognitive impairment G31.84 [place] [address] [place] [id number] [address] [place] [address] Oct, Bipolar I disorder, most rec ent episode (or current) mixed, moderate F31.62 and Mild cognitive impairment G31.84 [place] [address] [facility] [id number] [address] [place] [address] Sep, Bipolar I disorder, most rec ent episode (or current) mixed, moderate F31.62 and Mild cognitive impairment G31.84 [place] [address] [place] [id number] [address] [place] [address] Sep, [place] [address] [place] [id number] [address] [place] [address] Sep, Diabetes E11.9 ; Hypoxia R09 .02 ; Hyperglycemia R73.9 ; Therapeutic drug monitoring Z51.81 ; BMI 50.0-59.9, adult Z68.43 and Skin cancer C44.90 [place] [address] [place] [id number] [address] [place] [address] Sep, Chronic pain G89.29 [place] [address] [place] [id number] [address] [place] [address] Sep, Bipolar I disorder, most rec ent episode (or current) mixed, moderate F31.62 [place] [address] [place] [id number] [address] [place] [address] Sep, [place] [address] [place] [id number] [address] [place] [address] Sep, [place] [address] [place] [id number] [address] [place] [address] Aug, Chronic pain G89.29 [place] [address] [facility] [id number] [address] [place] [address] Aug, Bipolar I disorder, most rec ent episode (or current) mixed, moderate F31.62 [place] [address] [place] [id number] [address] [place] [address] Aug, Bipolar I disorder, most rec ent episode (or current) mixed, moderate F31.62 and Mild cognitive impairment G31.84 [place] [address] [place] [id number] [address] [place] [address] Jul, [facility] [address] [id number] [address] [place] [address] Jul, Chronic pain G89.29 [facility] [address] [id number] [address] [place] [address] Jul, Bipolar I disorder, most rec ent episode (or current) mixed, moderate F31.62 and Mild cognitive impairment G31.84 [facility] [address] [id number] [address] [place] [address] Jul, Bipolar I disorder, most rec ent episode (or current) mixed, moderate F31.62 and MCI (mild cognitive impairment) G31.84 [facility] [address] [id number] [address] [place] [address] Jul, [facility] [address] [id number] [address] [place] [address] Jul, [facility] [address] [id number] [address] [place] [address] Jul, Bipolar I disorder, most rec ent episode (or current) mixed, moderate F31.62 [facility] [address] [id number] [address] [place] [address] Jul, Chronic pain G89.29 [facility] [address] [id number] [address] [place] [address] Jun, Bipolar I disorder, most rec ent episode (or current) mixed, moderate F31.62 [facility] [address] [id number] [address] [place] [address] Jun, Pre-procedure lab exam Z01.8 12 [facility] [address] [id number] [address] [place] [address] Jun, [facility] [address] [id number] [place] [id number] Jun, [facility] [address] [id number] [address] [place] [address] Jun, [place] [address] [facility] [id number] [address] [place] [address] Jun, Forgetfulness R68.89 ; Pre-s yncope R55 ; Localized edema R60.0 ; Other iron deficiency anemia D50.8 and BMI 50.0-59.9, adult Z68.43 [place] [address] [place] [id number] [address] [place] [address] Jun, Chronic pain G89.29 [place] [address] [place] [id number] [address] [place] [address] Jun, Chronic pain G89.29 [place] [address] [place] [id number] [place] [address] Jun, Bipolar I disorder, most rec ent episode (or current) mixed, moderate F31.62 [place] [address] [place] [id number] [address] [place] [address] May, Chronic pain G89.29 [place] [address] [place] [id number] [address] [place] [address] Apr, [place] [address] [place] [id number] [place] [address] Apr, Chronic pain G89.29 [place] [address] [place] [id number] [address] [place] [address] Apr, Primary osteoarthritis of ri ght knee M17.11 [place] [address] [facility] [id number] [address] [place] [address] Mar, [place] [address] [place] [id number] [place] [address] Mar, BMI 50.0-59.9, adult Z68.43 and Bipolar disorder, in partial remission, most recent episode depressed F31.75 [place] [address] [place] [id number] [address] [place] [address] Mar, Diabetes E11.9 ; Pure hyperc holesterolemia E78.00 ; Essential hypertension I10 ; Nausea with vomiting, unspecified R11.2 and Headache, unspecified headache type R51 [place] [address] [address] Mar, Bipolar I disorder, most rec ent episode (or current) mixed, moderate F31.62 [place] [address] [address] Mar, Bipolar I disorder, most rec ent episode (or current) mixed, moderate F31.62 [place] [address] [address] Mar, Chronic pain G89.29 [place] [address] [address] Mar, Bipolar I disorder, most rec ent episode (or current) mixed, moderate F31.62 [place] [address] [address] Feb, Bipolar I disorder, most rec ent episode (or current) mixed, moderate F31.62 [place] [address] [address] Feb, Chronic pain G89.29 [place] [address] [place] [id number] [place] [address] Feb, Decubitus ulcer of right josselin t, stage 3 L89.893 and BMI 50.0-59.9, adult Z68.43 [place] [address] [address] Feb, Bipolar I disorder, most rec ent episode (or current) mixed, moderate F31.62 [place] [address] [place] [id number] [place] [address] Feb, [place] [address] [place] [id number] [place] [address] January, [place] [address] [facility] [id number] [address] [place] [address] January, Chronic pain G89.29 [facility] [address] [facility] [id number] [address] [place] [address] January, Bipolar I disorder, most rec ent episode (or current) mixed, moderate F31.62 [place] [address] [place] [id number] [address] [place] [address] January, Bipolar I disorder, most rec ent episode (or current) mixed, moderate F31.62 [place] [address] [place] [id number] [address] [place] [address] Dec, Bipolar I disorder, most rec ent episode (or current) mixed, moderate F31.62 and BMI 50.0-59.9, adult Z68.43 [place] [address] [place] [id number] [address] [place] [address] Dec, Bipolar I disorder, most rec ent episode (or current) mixed, moderate F31.62 [place] [address] [place] [id number] [address] [place] [address] Dec, Chronic pain G89.29 [place] [address] [place] [id number] [address] [place] [address] Dec, DM neuro manif type II E11.4 9 ; Right flank pain R10.9 ; residential 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 Z79.891 ; Encounter for medication monitoring Z51.81 and BMI 50.0-59.9, adult Z68.43 [place] [address] [facility] [id number] [address] [place] [address] Dec, Bipolar I disorder, most rec ent episode (or current) mixed, moderate F31.62 [place] [address] [place] [id number] [address] [place] [address] Nov, Bipolar I disorder, most rec ent episode (or current) mixed, moderate F31.62 [place] [address] [place] [id number] [address] [place] [address] Nov, Chronic pain G89.29 [facility] [address] [facility] [id number] [address] [place] [address] Nov, Bipolar I disorder, most rec ent episode (or current) mixed, moderate F31.62 [facility] [address] [facility] [id number] [address] [place] [address] Nov, Hypokalemia E87.6 [facility] [address] [facility] [id number] [address] [place] [address] Nov, Bipolar I disorder, most rec ent episode (or current) mixed, moderate F31.62 [place] [address] [facility] [id number] [address] [place] [address] Oct, Chronic pain G89.29 [facility] [address] [place] [id number] [address] [place] [address] Oct, BMI 50.0-59.9, adult Z68.43 and Bipolar I disorder, most recent episode (or current) mixed, moderate F31.62 [place] [address] [facility] [id number] [address] [place] [address] Oct, Bipolar I disorder, most rec ent episode (or current) mixed, moderate F31.62 [place] [address] [place] [id number] [address] [place] [address] Oct, [place] [address] [facility] [id number] [address] [place] [address] Oct, Hypokalemia E87.6 [place] [address] [facility] [id number] [address] [place] [address] Oct, DM neuro manif type II E11.4 9 [facility] [address] [facility] [id number] [address] [place] [address] Oct, Bipolar I disorder, most rec ent episode (or current) mixed, moderate F31.62 [place] [address] [facility] [id number] [address] [place] [address] 20 Oct, 2017 Bipolar I disorder, most rec ent episode (or current) mixed, moderate F31.62 [place] [address] [address] 14 Oct, 2017 Hyperkalemia E87.5 ; Falling R29.6 ; BMI 50.0-59.9, adult Z68.43 and Acute left ankle pain M25.572 [place] [address] [address] 08 Oct, 2017 DM neuro manif type II E11.[address] [address] Oct, [place] [address] [address] Sep, Chronic pain G89.29 [place] [address] [address] Sep, [place] [address] [address] Sep, Bilateral primary osteoarthr itis of knee M17.[address] [address] Sep, Generalized edema R60.[address] [address] 16 Sep, 2017 Bipolar I disorder, most rec ent episode (or current) mixed, moderate F31.62 [place] [address] [address] 15 Sep, 2017 Hypoxia R09.02 ; Other hyper volemia E87.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 ; Anemia of chronic illness D63.8 and BMI 50.0- 59.9, adult Z68.43 [place] [id number] [place] [address] Sep, [facility] [address] [facility] [id number] [address] [place] [address] Sep, Bipolar I disorder, most rec ent episode (or current) mixed, moderate F31.62 [facility] [address] [place] [id number] [place] [address] Aug, Chronic pain G89.29 [facility] [address] [place] [id number] [address] [place] [address] Aug, Generalized edema R60.1 [facility] [address] [place] [id number] [place] [address] Aug, [facility] [address] [place] [id number] [place] [address] Aug, [facility] [address] [place] [id number] [place] [address] Aug, Bipolar I disorder, most rec ent episode (or current) mixed, moderate F31.62 [place] [address] [place] [id number] [place] [address] Aug, Bipolar I disorder, most rec ent episode (or current) mixed, moderate F31.62 [facility] [address] [place] [id number] [place] [address] 04 Aug, 2017 Chronic pain G89.29 [facility] [address] [place] [id number] [place] [address] 30 Jul, 2017 Bipolar I disorder, most rec ent episode (or current) mixed, moderate F31.62 [facility] [address] [place] [id number] [place] [address] 27 Jul, 2017 Bipolar I disorder, most rec ent episode (or current) mixed, moderate F31.62 and BMI 60.0-69.9, adult Z68.44 [facility] [address] [place] [id number] [address] [place] [address] Jul, Bipolar I disorder, most rec ent episode (or current) mixed, moderate F31.62 [facility] [address] [facility] [id number] [address] [place] [address] Jul, Chronic pain G89.29 [facility] [address] [facility] [id number] [address] [place] [address] Jul, Bipolar I disorder, most rec ent episode (or current) mixed, moderate F31.62 [facility] [address] [facility] [id number] [address] [place] [address] Jun, Polyneuropathy associated wi th underlying disease G63 and Diabetes E11.9 [facility] [address] [facility] [id number] [address] [place] [address] Jun, Bipolar I disorder, most rec ent episode (or current) mixed, moderate F31.62 [facility] [address] [facility] [id number] [address] [place] [address] Jun, Chronic pain G89.29 [facility] [address] [id number] [address] [place] [address] May, Bipolar I disorder, most rec ent episode (or current) mixed, moderate F31.62 [facility] [address] [facility] [id number] [address] [place] [address] May, Bipolar I disorder, most rec ent episode (or current) mixed, moderate F31.62 [facility] [address] [facility] [id number] [address] [place] [address] 20 May, 2017 Diabetic polyneuropathy asso ciated with type 2 diabetes mellitus E11.42 [facility] [address] [id number] [address] [place] [address] 18 May, 2017 Bipolar I disorder, most rec ent episode (or current) mixed, moderate F31.62 [facility] [address] [facility] [id number] [address] [place] [id number] 13 May, 2017 Bipolar I disorder, most rec ent episode (or current) mixed, moderate F31.62 [facility] [address] [id number] [address] [place] [phone] May, Chronic pain G89.29 [facility] [address] [id number] [address] [place] [id number] Apr, Bipolar I disorder, most rec ent episode (or current) mixed, moderate F31.62 [facility] [address] [id number] [address] [place] [id number] Apr, [facility] [address] [id number] [address] [place] [phone] Apr, Chronic pain G89.29 and DM n euro manif type II E11.49 [facility] [address] [id number] [address] [place] [id number] Apr, [facility] [address] [id number] [address] [place] [id number] Apr, Bipolar I disorder, most rec ent episode (or current) mixed, moderate F31.62 [facility] [address] [id number] [address] [place] [phone] Apr, Chronic pain G89.29 [facility] [address] [id number] [address] [place] [id number] Apr, Iliotibial band syndrome, le ft M76.32 [facility] [address] [id number] [address] [place] [phone] Apr, Bipolar I disorder, most rec ent episode (or current) mixed, moderate F31.62 [facility] [address] [id number] [address] [place] [id number] Mar, Bipolar I disorder, most rec ent episode (or current) mixed, moderate F31.62 [facility] [address] [facility] [id number] [address] [place] [phone] Mar, Bipolar I disorder, most rec ent episode (or current) mixed, moderate F31.62 [facility] [address] [facility] [id number] [address] [place] [phone] Mar, [facility] [address] [id number] [address] [place] [id number] Mar, Bipolar I disorder, most rec ent episode (or current) mixed, moderate F31.62 [facility] [address] [id number] [address] [place] [address] Mar, Chronic pain G89.29 [facility] [address] [facility] [id number] [address] [place] [address] Mar, Bipolar I disorder, most rec ent episode (or current) mixed, moderate F31.62 [facility] [address] [id number] [address] [place] [address] Mar, Bipolar I disorder, most rec ent episode (or current) mixed, moderate F31.62 [facility] [address] [id number] [address] [place] [address] Mar, Acute pain of left knee M25. 562 ; Left hip pain M25.552 ; Generalized edema R60.1 and Tongue swelling R22.0 [facility] [address] [id number] [address] [place] [address] Mar, [facility] [address] [facility] [id number] [address] [place] [address] Feb, Chronic pain G89.29 [facility] [address] [id number] [address] [place] [address] Feb, Diabetes E11.9 [facility] [address] [facility] [id number] [address] [place] [address] January, Chronic pain G89.29 [facility] [address] [facility] [id number] [address] [place] [address] January, [facility] [address] [id number] [address] [place] [address] January, Bipolar I disorder, most rec ent episode (or current) mixed, moderate F31.62 [facility] [address] [id number] [address] [place] [address] Dec, Bipolar I disorder, most rec ent episode (or current) mixed, moderate F31.62 [facility] [address] [facility] [id number] [address] [place] [address] Dec, Chronic pain G89.29 [facility] [address] [facility] [id number] [address] [place] [address] Dec, Bipolar I disorder, most rec ent episode (or current) mixed, moderate F31.62 [facility] [address] [facility] [id number] [address] [place] [address] Dec, Diabetes E11.9 ; Essential h ypertension I10 ; Chronic pain G89.29 and Morbid obesity E66.01 [facility] [address] [facility] [id number] [address] [place] [address] Dec, [facility] [address] [facility] [id number] [address] [place] [address] Dec, Bipolar I disorder, most rec ent episode (or current) mixed, moderate F31.62 [facility] [address] [facility] [id number] [address] [place] [address] Dec, Bipolar I disorder, most rec ent episode (or current) mixed, moderate F31.62 [facility] [address] [facility] [id number] [address] [place] [address] Nov, Chronic pain G89.29 [facility] [address] [id number] [address] [place] [address] Nov, Bipolar I disorder, most rec ent episode (or current) mixed, moderate F31.62 [facility] [address] [facility] [id number] [address] [place] [address] Nov, [facility] [address] [facility] [id number] [address] [place] [address] Nov, Bipolar I disorder, most rec ent episode (or current) mixed, moderate F31.62 [facility] [address] [facility] [id number] [address] [place] [address] Nov, Bipolar I disorder, most rec ent episode (or current) mixed, moderate F31.62 [facility] [address] [facility] [id number] [address] [place] [address] Nov, [facility] [address] [facility] [id number] [address] [place] [address] Nov, [facility] [address] [facility] [id number] [address] [place] [address] Nov, [facility] [address] [facility] [id number] [address] [place] [address] Oct, Chronic pain G89.29 [facility] [address] [facility] [id number] [address] [place] [address] Oct, Bipolar I disorder, most rec ent episode (or current) mixed, moderate F31.62 [facility] [address] [facility] [id number] [address] [place] [address] Oct, [facility] [address] [facility] [id number] [address] [place] [address] Oct, Chronic pain G89.29 ; Diabet es E11.9 ; Anxiety F41.9 and 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 [facility] [address] [facility] [id number] [address] [place] [address] Oct, [facility] [address] [facility] [id number] [address] [place] [address] Oct, Diabetes E11.9 [facility] [address] [facility] [id number] [address] [place] [address] Oct, Bipolar I disorder, most rec ent episode (or current) mixed, moderate F31.62 [facility] [address] [facility] [id number] [address] [place] [address] Sep, Chronic pain G89.29 [facility] [address] [id number] [address] [place] [address] Sep, Chronic pain G89.29 [facility] [address] [facility] [id number] [address] [place] [address] Aug, Chronic pain G89.29 [facility] [address] [facility] [id number] [address] [place] [address] Jul, [facility] [address] [facility] [id number] [address] [place] [address] Jul, Diabetes E11.9 [facility] [address] [facility] [id number] [address] [place] [address] Jul, Chronic pain G89.29 [facility] [address] [facility] [id number] [address] [place] [address] Jul, Bipolar I disorder, most rec ent episode (or current) mixed, moderate F31.62 [facility] [address] [facility] [id number] [address] [place] [address] Jun, Bipolar I disorder, most rec ent episode (or current) mixed, moderate F31.62 [facility] [address] [facility] [id number] [address] [place] [address] Jun, [facility] [address] [facility] [id number] [address] [place] [address] Jun, Bipolar I disorder, most rec ent episode (or current) mixed, moderate F31.62 [facility] [address] [facility] [id number] [address] [place] [address] 30 May, 2016 Insomnia, unspecified type G 47.00 [facility] [address] [facility] [id number] [address] [place] [phone] 22 May, 2016 Bipolar I disorder, most rec ent episode (or current) mixed, moderate F31.62 [facility] [address] [facility] [id number] [address] [place] [address] 14 May, 2016 [facility] [address] [facility] [id number] [address] [place] [address] May, Bipolar I disorder, most rec ent episode (or current) mixed, moderate F31.62 [place] [address] [id number] [address] [place] [address] May, Diabetes E11.9 and Essential hypertension I10 [place] [address] [id number] [address] [place] [address] Apr, Chronic pain G89.29 [place] [address] [facility] [id number] [address] [place] [address] Apr, Bipolar I disorder, most rec ent episode (or current) mixed, moderate F31.62 [place] [address] [id number] [address] [place] [address] Apr, [place] [id number] [place] [phone] Apr, [place] [address] [id number] [address] [place] [address] Mar, Chronic pain G89.29 ; Headac he, unspecified headache type R51 ; Neuropathy G62.9 ; Pain of right hip joint M25.551 and Essential hypertension I10 [place] [address] [id number] [address] [place] [address] Mar, Chronic pain G89.29 [place] [address] [id number] [address] [place] [address] Mar, Bipolar I disorder, most rec ent episode (or current) mixed, moderate F31.62 [place] [address] [id number] [address] [place] [address] Feb, Bipolar I disorder, most rec ent episode (or current) mixed, moderate F31.62 and Insomnia, unspecified type G47.00 [place] [address] [facility] [id number] [address] [place] [address] Feb, Chronic pain G89.29 [facility] [address] [id number] [address] [place] [address] Feb, Bipolar I disorder, most rec ent episode (or current) mixed, moderate F31.62 [facility] [address] [id number] [address] [place] [address] January, Bipolar I disorder, most rec ent episode (or current) mixed, moderate F31.62 [facility] [address] [id number] [address] [place] [address] January, Chronic pain G89.29 [facility] [address] [id number] [address] [place] [address] January, Chronic pain G89.29 and Esse ntial hypertension I10 [facility] [address] [id number] [address] [place] [address] January, Bipolar I disorder, most rec ent episode (or current) mixed, moderate F31.62 [facility] [address] [id number] [address] [place] [address] Dec, [facility] [address] [id number] [address] [place] [address] Dec, [facility] [address] [id number] [address] [place] [address] Dec, [facility] [address] [id number] [address] [place] [address] Dec, [facility] [address] [id number] [address] [place] [address] Nov, Reactive airway disease J45. 909 [facility] [address] [id number] [address] [place] [address] Nov, [facility] [address] [id number] [address] [place] [address] Nov, [facility] [address] [facility] [id number] [address] [place] [address] Nov, [place] [address] [address] Nov, [address] [address] Nov, Onychomycosis B35.1 ; Hammer toe M20.40 ; [place] or callus L84 and DM neuro manif type II E11.[address] [address] Nov, Chronic pain G89.29 ; Leukoc ytosis D72.829 and Diabetes E11.[address] [address] Nov, [place] [address] [address] Oct, Bronchitis J40 [address] [address] Oct, [place] [address] [address] Oct, [address] [address] Oct, Mastoiditis, unspecified lat erality H70.90 and Type 2 diabetes mellitus with complication E11.[address] [address] Sep, [address] [address] Sep, Dysuria R30.0 ; Cough R05 ; Benign prostatic hyperplasia with lower urinary tract symptoms, unspecified morphology N40.1 ; Hypokalemia E87.6 and Eustachian tube dysfunction, unspecified laterality H69.[address] [address] Sep, Moderate mixed bipolar I dis order F31.62 [place] [address] [id number] [address] [place] [address] Sep, Hypokalemia E87.6 [facility] [address] [id number] [address] [place] [address] Sep, [facility] [address] [id number] [address] [place] [address] Sep, Upper respiratory tract infe ction, unspecified type J06.9 [facility] [address] [id number] [address] [place] [address] Aug, [facility] [address] [id number] [address] [place] [address] Aug, Dysuria R30.0 [facility] [address] [id number] [address] [place] [address] Aug, [facility] [address] [id number] [address] [place] [address] Jul, [facility] [address] [id number] [address] [place] [address] Jul, [facility] [address] [id number] [address] [place] [address] Jul, [facility] [address] [id number] [address] [place] [address] Jul, [facility] [address] [id number] [address] [place] [address] Jun, [facility] [address] [id number] [address] [place] [address] Jun, [facility] [address] [id number] [address] [place] [address] Jun, [facility] [address] [id number] [address] [place] [address] 29 May, 2015 [facility] [address] [id number] [address] [place] [address] May, Bipolar I disorder, most rec ent episode (or current) mixed, moderate 296.62 [facility] [address] [id number] [address] [place] [address] May, [facility] [address] [facility] [id number] [address] [place] [address] May, Bipolar I disorder, most rec ent episode (or current) mixed, moderate 296.62 and Major depressive disorder, recurrent episode, severe, specified as with psychotic behavior 296.34 [facility] [address] [id number] [address] [place] [address] May, Bipolar I disorder, most rec ent episode (or current) mixed, moderate 296.62 [facility] [address] [facility] [id number] [address] [place] [address] May, [facility] [address] [facility] [id number] [address] [place] [address] Apr, [facility] [address] [facility] [id number] [address] [place] [address] Apr, [facility] [address] [facility] [id number] [address] [place] [address] Apr, Unspecified disorder of kidn ey and ureter 593.9 and Diabetes mellitus type 2, uncontrolled 250.02 [facility] [address] [facility] [id number] [address] [place] [address] Apr, [facility] [address] [facility] [id number] [address] [place] [address] Apr, [facility] [address] [facility] [id number] [address] [place] [address] Apr, [facility] [address] [facility] [id number] [address] [place] [address] Apr, [facility] [address] [facility] [id number] [address] [place] [address] Apr, Diabetes mellitus type II, u ncontrolled 250.02 [facility] [address] [facility] [id number] [address] [place] [address] Apr, [facility] [address] [facility] [id number] [address] [place] [address] Mar, [facility] [address] [facility] [id number] [address] [place] [address] Mar, [facility] [address] [facility] [id number] [address] [place] [address] Mar, [facility] [address] [facility] [id number] [address] [place] [address] Mar, Major depressive disorder, r ecurrent episode, severe, specified as with psychotic behavior 296.34 and Bipolar I disorder, most recent episode (or current) mixed, moderate 296.62 [facility] [address] [facility] [id number] [address] [place] [address] Mar, Diabetes 250.00 ; Anuria 788 .5 ; Nausea and vomiting 787.01 and Diarrhea 787.91 [facility] [address] [facility] [id number] [address] [place] [address] Mar, Diabetes 250.00 [facility] [address] [facility] [id number] [address] [place] [address] Mar, [facility] [address] [facility] [id number] [address] [place] [address] Mar, Diabetes 250.00 [facility] [address] [facility] [id number] [address] [place] [address] Mar, [facility] [address] [facility] [id number] [address] [place] [address] Mar, [facility] [address] [facility] [id number] [address] [place] [address] Mar, [facility] [address] [facility] [id number] [address] [place] [address] Mar, [facility] [address] [facility] [id number] [address] [place] [address] Mar, Bipolar I disorder, most rec ent episode (or current) mixed, moderate 296.62 and Major depressive disorder, recurrent episode, severe, specified as with psychotic behavior 296.[address] [address] Mar, Magnesium deficiency 275.2 ; Hypokalemia 276.8 ; Nausea & vomiting 787.01 and Diabetes mellitus type 2, uncontrolled 250.[address] [address] Feb, [address] [address] Feb, Bipolar I disorder, most rec ent episode (or current) mixed, moderate 296.[address] [address] Feb, Nausea and vomiting 787.01 ; Left elbow pain 719.42 ; Anuria 788.5 and Diabetes 250.[address] [address] Feb, [address] [address] Feb, Hypopotassemia 276.8 and Hyp okalemia 276.[address] [address] Feb, Hypopotassemia 276.8 and Hyp okalemia 276.[address] [address] Feb, Seborrheic keratoses 702.[address] [address] Feb, Hypopotassemia 276.8 and Low magnesium levels 275.[address] [address] January, [facility] [address] [id number] [address] [place] [address] January, [facility] [address] [id number] [address] [place] [address] January, [facility] [address] [id number] [address] [place] [address] January, Scalp lesion 709.9 [facility] [address] [id number] [address] [place] [address] January, [facility] [address] [id number] [address] [place] [address] Dec, Tear of medial cartilage or meniscus of knee, current 836.0 and 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 [facility] [address] [id number] [address] [place] [address] Dec, [facility] [address] [id number] [address] [place] [address] Dec, [facility] [address] [id number] [address] [place] [address] Dec, Squamous cell carcinoma, 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 [facility] [address] [id number] [address] [place] [address] 14 Dec, 2014 [facility] [address] [id number] [address] [place] [address] Dec, [facility] [address] [id number] [address] [place] [address] Nov, [facility] [address] [id number] [address] [place] [address] Nov, [facility] [address] [id number] [address] [place] [address] Nov, [facility] [address] [id number] [address] [place] [id number] Nov, [facility] [address] [id number] [address] [place] [address], [place] [address] 09 Nov, 2014 [facility] [address] [id number] [address] [place] [address], [place] [address] Nov, 2014 [facility] [address] [id number] [address] [place] [address], [place] [address] Nov, 2014 [facility] [address] [id number] [address] [place] [address], [place] [address] Nov, 2014 [facility] [address] [id number] [address] [place] [address], [place] [address] Nov, 2014 [facility] [address] [id number] [address] [place] [address], [place] [address] Nov, 2014 [facility] [address] [id number] [address] [place] [address], [place] [address] Nov, 2014 [facility] [address] [id number] [address] [place] [address], [place] [address] Nov, 2014 [facility] [address] [id number] [address] [place] [address], [place] [address] Oct, 2014 [facility] [address] [id number] [address] [place] [address], [place] [address] Oct, 2014 [facility] [address] [id number] [address] [place] [address], [place] [address] Oct, 2014 [facility] [address] [id number] [address] [place] [address], [place] [address] Oct, 2014 [facility] [address] [id number] [address] [place] [address], [place] [address] Oct, 2014 [facility] [address] [id number] [address] [place] [address], [place] [address] Oct, 2014 [facility] [address] [id number] [address] [place] [address], [place] [address] Oct, 2014 [facility] [address] [id number] [address] [place] [address], [place] [address] Oct, [facility] [address] [id number] [address] [place] [address], [place] [address] Oct, [facility] [address] [id number] [address] [place] [address], [place] [address] Sep, [facility] [address] [id number] [address] [place] [address], [place] [address] Sep, [facility] [address] [id number] [address] [place] [address], [place] [address] Sep, [facility] [address] [id number] [address] [place] [address], [place] [address] Sep, [facility] [address] [id number] [address] [place] [address], [place] [address] Sep, [facility] [address] [id number] [address] [place] [address], [place] [address] Sep, [facility] [address] [id number] [address] [place] [address], [place] [address] Sep, [facility] [address] [id number] [address] [place] [address], [place] [address] Sep, [facility] [address] [id number] [address] [place] [address], [place] [address] Sep, [facility] [address] [id number] [address] [place] [address], [place] [address] Sep, [facility] [address] [id number] [address] [place] [address] Sep, [facility] [address] [id number] [address] [place] [address], [place] [address] Sep, [facility] [address] [id number] [address] [place] [address], [place] [address] Sep, [facility] [address] [id number] [address] [place] [address], [place] [address] Sep, [facility] [address] [id number] [facility], [place] [address] Sep, [facility] [address] [id number] [address] [place] [address], [place] [address] Sep, [facility] [address] [id number] [address] [place] [address], [place] [address] Aug, [facility] [address] [id number] [address] [place] [address], [place] [address] Aug, [facility] [address] [id number] [address] [place] [address], [place] [address] Aug, [facility] [address] [id number] [address] [place] [address], [place] [address] Aug, [facility] [address] [id number] [address] [place] [address], [place] [address] Aug, [facility] [address] [id number] [address] [place] [address], [place] [address] Aug, [facility] [address] [id number] [address] [place] [address], [place] [address] Aug, [facility] [address] [id number] [address] [place] [address], [place] [address] Aug, [facility] [address] [id number] [address] [place] [address], [place] [address] Aug, [facility] [address] [id number] [address] [place] [address], [place] [address] Aug, [facility] [address] [id number] [address] [place] [address], [place] [address] Aug, [facility] [address] [place] [id number] Aug, [facility] [address] [id number] [address] [place] [address], [place] [address] Aug, [facility] [address] [id number] [address] [place] [address], [place] [address] Aug, [facility] [address] [id number] [address] [place] [address], [place] [address] 10 Aug, 2014 [facility] [address] [id number] [address] [place] [address], [place] [address] Aug, [facility] [address] [id number] [address] [place] [address], [place] [address] Aug, [facility] [address] [id number] [address] [place] [address], [place] [address] Aug, [facility] [address] [id number] [address] [place] [address], [place] [address] Aug, [facility] [address] [id number] [address] [place] [address], [place] [address] Aug, [facility] [address] [id number] [address] [place] [address], [place] [address] Aug, [facility] [address] [id number] [address] [place] [address], [place] [address] Aug, [facility] [address] [id number] [address] [place] [address], [place] [address] Aug, [facility] [address] [id number] [address] [place] [address], [place] [address] Aug, [facility] [address] [id number] [address] [place] [address], [place] [address] Aug, [facility] [address] [id number] [address] [place] [address], [place] [address] Aug, [facility] [address] [id number] [address] [place] [address], [place] [address] Aug, [facility] [address] [id number] [address] [place] [address], [place] [address] Aug, [facility] [address] [id number] [address] [place] [address], [place] [address] Aug, [facility] [address] [id number] [address] [place] [address], [place] [address] Aug, [facility] [address] [id number] [address] [place] [address], [place] [address] Jul, [facility] [address] [id number] [address] [place] [address], [place] [address] Jul, [facility] [address] [id number] [address] [place] [address], [place] [address] Jul, [facility] [address] [id number] [address] [place] [address], [place] [address] Jul, [facility] [address] [id number] [address] [place] [address], [place] [address] Jul, [facility] [address] [id number] [address] [place] [address], [place] [address] Jul, [facility] [address] [id number] [address] [place] [address], [place] [address] Jul, [facility] [address] [id number] [address] [place] [address], [place] [address] Jul, [facility] [address] [id number] [address] [place] [address], [place] [address] Jul, [facility] [address] [id number] [address] [place] [address], [place] [address] Jul, [facility] [address] [id number] [address] [place] [address], [place] [address] Jun, [facility] [address] [id number] [address] [place] [address], [place] [address] Jun, [facility] [address] [id number] [address] [place] [address], [place] [address] Jun, [facility] [address] [id number] [address] [place] [address], [place] [address] Jun, [facility] [address] [id number] [address] [place] [address], [place] [address] 15 Jun, 2014 [facility] [address] [id number] [address] [place] [address], [place] [address] 15 Jun, 2014 [facility] [address] [id number] [address] [place] [address], [place] [address] 05 Jun, 2014 [facility] [address] [id number] [address] [place] [address], [place] [address] 05 Jun, 2014 [facility] [address] [id number] [address] [place] [address], [place] [address] Jun, [facility] [address] [id number] [address] [place] [address], [place] [address] Jun, [facility] [address] [id number] [address] [place] [address], [place] [address] 29 May, 2013 [facility] [address] [id number] [address] [place] [address], [place] [address] 29 Sep, 2013 [facility] [address] [id number] [address] [place] [address], [place] [address] 26 May, 2013 [facility] [address] [id number] [address] [place] [address], [place] [address] 26 Sep, 2013 [facility] [address] [id number] [address] [place] [address], [place] [address] 17 May, 2013 [facility] [address] [id number] [address] [place] [address], [place] [address] 17 Sep, 2013 [facility] [address] [id number] [address] [place] [address], [place] [address] 15 Sep, 2013 [facility] [address] [id number] [address] [place] [address], [place] [address] 15 Sep, 2013 [facility] [address] [id number] [address] [place] [address], [place] [address] 15 Sep, 2013 [facility] [address] [id number] [address] [place] [address], [place] [address] 15 Sep, 2013 [facility] [address] [id number] [address] [place] [address], [place] [address] 10 May2013 [facility] [address] [id number] [facility] [place] [place] [address] May, 2013 [facility] [address] [id number] [facility] [address] May, [facility] [address] [id number] [facility] [place] [address] May, 2013 [facility] [address] [id number] [address] [place] [address], [place] [address] May, [facility] [address] [id number] [address] [place] [address], [place] [address] May, [facility] [address] [id number] [address] [place] [address], [place] [address] Apr, [facility] [address] [id number] [address] [place] [address], [place] [address] Apr, [facility] [address] [id number] [address] [place] [address], [place] [address] Apr, [facility] [address] [id number] [address] [place] [address], [place] [address] Apr, [facility] [address] [id number] [address] [place] [address], [place] [address] Apr, [facility] [address] [id number] [address] [place] [address], [place] [address] Apr, [facility] [address] [id number] [address] [place] [address], [place] [address] Apr, [facility] [address] [id number] [address] [place] [address], [place] [address] Apr, [facility] [address] [id number] [address] [place] [address], [place] [address] Apr, [facility] [address] [id number] [address] [place] [address], [place] [address] Apr, [facility] [address] [id number] [address] [place] [address], [place] [address] Apr, [facility] [address] [id number] [facility] [place] [address] Apr, [facility] [address] [id number] [address] [place] [address], [place] [address] Apr, [facility] [address] [id number] [address] [place] [address], [place] [address] Apr, [facility] [address] [id number] [address] [place] [address], [place] [address] Apr, [facility] [address] [id number] [address] [place] [address], [place] [address] Mar, [facility] [address] [id number] [address] [place] [address], [place] [address] Mar, [facility] [address] [id number] [address] [place] [address], [place] [address] Mar, [facility] [address] [id number] [address] [place] [address], [place] [address] Mar, [facility] [address] [id number] [address] [place] [address], [place] [address] Mar, [facility] [address] [id number] [address] [place] [address], [place] [address] Mar, [facility] [address] [id number] [address] [place] [address], [place] [address] Mar, [facility] [address] [id number] [address] [place] [address], [place] [address] Mar, [facility] [address] [id number] [address] [place] [address], [place] [address] Mar, [facility] [address] [id number] [address] [place] [address], [place] [address] Mar, [facility] [address] [id number] [address] [place] [address], [place] [address] Mar, [facility] [address] [id number] [facility] [address] Mar, 2013 [facility] [address] [id number] [facility] [place] [place] [address] Mar, 2013 [facility] [address] [id number] [facility] [place] [address] Mar, 2013 [facility] [address] [id number] [address] [place] [address], [place] [address] Mar, 2013 [facility] [address] [id number] [address] [place] [address], [place] [address] Mar, 2013 [facility] [address] [id number] [address] [place] [address], [place] [address] Mar, 2013 [facility] [address] [id number] [address] [place] [address], [place] [address] Mar, 2013 [facility] [address] [id number] [address] [place] [address], [place] [address] Feb, [facility] [address] [id number] [address] [place] [address], [place] [address] Feb, [facility] [address] [id number] [address] [place] [address], [place] [address] Feb, [facility] [address] [id number] [address] [place] [address], [place] [address] Feb, [facility] [address] [id number] [address] [place] [address], [place] [address] Feb, [facility] [address] [id number] [address] [place] [address], [place] [address] Feb, [facility] [address] [id number] [address] [place] [address], [place] [address] Feb, [facility] [address] [id number] [address] [place] [address], [place] [address] Feb, [facility] [address] [id number] [address] [place] [address], [place] [address] Feb, [facility] [address] [id number] [address] [place] [address], [place] [address] Feb, [facility] [address] [id number] [address] [place] [address], [place] [address] Feb, [facility] [address] [id number] [address] [place] [address], [place] [address] Feb, [facility] [address] [id number] [address] [place] [address], [place] [address] Feb, [facility] [address] [id number] [address] [place] [address], [place] [address] Feb, [facility] [address] [id number] [address] [place] [address], [place] [address] January, [facility] [address] [id number] [address] [place] [address], [place] [address] January, [facility] [address] [id number] [address] [place] [address], [place] [address] January, [facility] [address] [id number] [address] [place] [address], [place] [address] January, [facility] [address] [id number] [address] [place] [address], [place] [address] January, [facility] [address] [id number] [address] [place] [address], [place] [address] January, [facility] [address] [id number] [address] [place] [address], [place] [address] January, [facility] [address] [id number] [address] [place] [address], [place] [address] January, [facility] [address] [id number] [address] [place] [address], [place] [address] January, [facility] [address] [id number] [address] [place] [address], [place] [address] January, [facility] [address] [id number] [address] [place] [address], [place] [address] January, [facility] [address] [id number] [address] [place] [address], [place] [address] January, [facility] [address] [id number] [address] [place] [address], [place] [address] January, [facility] [address] [id number] [address] [place] [address], [place] [address] January, [facility] [address] [id number] [address] [place] [address], [place] [address] Dec, [facility] [address] [id number] [address] [place] [address], [place] [address] Dec, [facility] [address] [id number] [address] [place] [address], [place] [address] Dec, [facility] [address] [id number] [address] [place] [address], [place] [address] Dec, [facility] [address] [id number] [address] [place] [address], [place] [address] Dec, [facility] [address] [id number] [address] [place] [address], [place] [address] Dec, [facility] [address] [id number] [address] [place] [address], [place] [address] Dec, [facility] [address] [id number] [address] [place] [address], [place] [address] Dec, [facility] [address] [id number] [address] [place] [address], [place] [address] Dec, [facility] [address] [id number] [address] [place] [address], [place] [address] Dec, [facility] [address] [id number] [address] [place] [address], [place] [address] Nov, [facility] [address] [id number] [address] [place] [address], [place] [address] Nov, [facility] [address] [id number] [address] [place] [address], [place] [address] 10 Nov, 2013 [facility] [address] [id number] [address] [place] [address], [place] [address] 10 Nov, 2013 [facility] [address] [id number] [address] [place] [address], [place] [address] 08 Nov, 2013 [facility] [address] [id number] [address] [place] [address], [place] [address] 08 Nov, 2013 [facility] [address] [id number] [address] [place] [address], [place] [address] Nov, [facility] [address] [id number] [address] [place] [address], [place] [address] Nov, [facility] [address] [id number] [address] [place] [address], [place] [address] Nov, [facility] [address] [id number] [address] [place] [address], [place] [address] Nov, [facility] [address] [id number] [address] [place] [address], [place] [address] Oct, [facility] [address] [id number] [address] [place] [address], [place] [address] Oct, [facility] [address] [id number] [address] [place] [address], [place] [address] Oct, [facility] [address] [id number] [address] [place] [address], [place] [address] Oct, [facility] [address] [id number] [address] [place] [address], [place] [address] Oct, [facility] [address] [id number] [address] [place] [address], [place] [address] 20 Oct, 2013 [facility] [address] [id number] [address] [place] [address], [place] [address] 14 Oct, 2013 [facility] [address] [id number] [address] [place] [address], [place] [address] 14 Oct, 2013 [facility] [address] [id number] [address] [place] [address], [place] [address] Oct, [facility] [address] [id number] [address] [place] [address], [place] [address] Oct, [facility] [address] [id number] [address] [place] [address], [place] [address] Oct, [facility] [address] [id number] [address] [place] [address], [place] [address] Oct, [facility] [address] [id number] [address] [place] [address], [place] [address] Oct, [facility] [address] [id number] [address] [place] [address], [place] [address] Oct, [facility] [address] [id number] [address] [place] [address], [place] [address] Sep, [facility] [address] [id number] [address] [place] [address], [place] [address] Sep, [facility] [address] [id number] [address] [place] [address], [place] [address] Sep, [facility] [address] [id number] [address] [place] [address], [place] [address] Sep, [facility] [address] [id number] [address] [place] [address], [place] [address] Sep, [facility] [address] [id number] [address] [place] [address], [place] [address] Sep, [facility] [address] [id number] [address] [place] [address], [place] [address] Sep, [facility] [address] [id number] [address] [place] [address], [place] [address] Sep, [facility] [address] [id number] [address] [place] [address], [place] [address] Sep, [facility] [address] [id number] [address] [place] [address], [place] [address] Sep, [facility] [address] [id number] [address] [place] [address], [place] [address] Aug, [facility] [address] [id number] [address] [place] [address], [place] [address] Aug, [facility] [address] [id number] [address] [place] [address], [place] [address] Jul, [facility] [address] [id number] [address] [place] [address], [place] [address] Jul, [facility] [address] [id number] [address] [place] [address], [place] [address] Jul, [facility] [address] [id number] [address] [place] [address], [place] [address] Jul, [facility] [address] [id number] [address] [place] [address], [place] [address] Jul, [facility] [address] [id number] [address] [place] [address], [place] [address] Jul, [facility] [address] [id number] [address] [place] [address], [place] [address] Jul, [facility] [address] [id number] [address] [place] [address], [place] [address] Jul, [facility] [address] [id number] [address] [place] [address], [place] [address] Jul, [facility] [address] [id number] [address] [place] [address], [place] [address] Jul, [facility] [address] [id number] [address] [place] [address], [place] [address] Jul, [facility] [address] [id number] [address] [place] [address], [place] [address] Jul, [facility] [address] [id number] [address] [place] [address] Jul, [facility] [address] [id number] [address] [place] [address], [place] [address] Jul, [facility] [address] [id number] [address] [place] [address] Jul, [facility] [address] [id number] [address] [place] [address] Jul, [facility] [address] [id number] [address] [place] [address] Jul, [facility] [address] [id number] [address] [place] [address], [place] [address] Jul, [facility] [address] [id number] [address] [place] [address] Jul, [facility] [address] [id number] [address] [place] [address] Jun, [facility] [address] [id number] [address] [place] [address] 16 Jun, 2013 [facility] [address] [id number] [address] [place] [address] 16 Jun, 2012 [facility] [address] [id number] [address] [place] [address] 16 Jun, 2012 [facility] [address] [id number] [address] [place] [address] 16 Jun, 2012 [facility] [address] [id number] [address] [place] [address] 16 Jun, 2012 [facility] [address] [id number] [address] [place] [address] 10 Jun, 2012 [facility] [address] [id number] [address] [place] [address] 10 Jun, 2012 [facility] [address] [id number] [address] [place] [address] 09 Jun, 2013 [facility] [address] [id number] [address] [place] [address], [place] [address] Jun, [facility] [address] [id number] [address] [place] [address], [place] [address] Jun, [facility] [address] [id number] [address] [place] [address], [place] [address] May, [facility] [facility] [address] [id number] [address] [place] [address], [place] [address] May, 2012 [facility] [address] [id number] [address] [place] [address], [place] [address] May, 2012 [facility] [address] [id number] [address] [place] [address], [place] [address] 17 May, 2012 [facility] [address] [id number] [address] [place] [address], [place] [address] May, [facility] [address] [id number] [address] [place] [address], [place] [address] May, [facility] [address] [id number] [address] [place] [address], [place] [address] May, [facility] [address] [id number] [address] [place] [address], [place] [address] May, [facility] [address] [id number] [address] [place] [address], [place] [address] Apr, [facility] [address] [id number] [address] [place] [address], [place] [address] Apr, [facility] [address] [id number] [address] [place] [address], [place] [address] Apr, [facility] [address] [id number] [address] [place] [address], [place] [address] Apr, [facility] [address] [id number] [address] [place] [address], [place] [address] Apr, [facility] [address] [id number] [address] [place] [address], [place] [address] Mar, [facility] [address] [id number] [address] [place] [address], [place] [address] Mar, [facility] [address] [id number] [address] [place] [address], [place] [address] Mar, [facility] [address] [id number] [address] [place] [address], [place] [address] Mar, [facility] [address] [id number] [address] [place] [address], [place] [address] Mar, [facility] [address] [id number] [address] [place] [address], [place] [address] Mar, [facility] [address] [id number] [address] [place] [address], [place] [address] Mar, [facility] [address] [id number] [address] [place] [address], [place] [address] Mar, [facility] [address] [id number] [address] [place] [address], [place] [address] Feb, [facility] [address] [id number] [address] [place] [address], [place] [address] Feb, [facility] [address] [id number] [address] [place] [address], [place] [address] January, [facility] [address] [id number] [address] [place] [address], [place] [address] January, [facility] [address] [id number] [address] [place] [address], [place] [address] Dec, [facility] [address] [id number] [address] [place] [address], [place] [address] Dec, [facility] [address] [id number] [address] [place] [address], [place] [address] Nov, [facility] [address] [id number] [address] [place] [address], [place] [address] Nov, [facility] [address] [id number] [address] [place] [address], [place] [address] Nov, [facility] [address] [id number] [address] [place] [address], [place] [address] Nov, [facility] [address] [id number] [address] [place] [address], [place] [address] 27 Oct, 2012 [facility] [address] [id number] [address] [place] [address], [place] [address] Oct, [facility] [address] [id number] [address] [place] [address], [place] [address] Oct, [facility] [address] [id number] [address] [place] [address], [place] [address] 26 Oct, 2012 [facility] [address] [id number] [address] [place] [address], [place] [address] 16 Oct, 2012 [facility] [address] [id number] [address] [place] [address], [place] [address] 14 Oct, 2012 [facility] [address] [id number] [address] [place] [address], [place] [address] 08 Oct, 2012 [facility] [address] [id number] [address] [place] [address], [place] [address] 07 Oct, 2012 [facility] [address] [id number] [address] [place] [address], [place] [address] 03 Oct, 2012 [facility] [address] [id number] [address] [place] [address], [place] [address] 30 Sep, 2012 [facility] [address] [id number] [address] [place] [address], [place] [address] Sep, [facility] [address] [id number] [address] [place] [address], [place] [address] Sep, [facility] [address] [id number] [address] [place] [address], [place] [address] Sep, [facility] [address] [id number] [address] [place] [address], [place] [address] Sep, [facility] [address] [id number] [address] [place] [address], [place] [address] 10 Sep, 2012 [facility] [address] [id number] [address] [place] [address], [place] [address] Sep, [facility] [address] [id number] [address] [place] [address], [place] [address] Sep, [facility] [address] [id number] [address] [place] [address], [place] [address] Aug, [facility] [address] [id number] [address] [place] [address], [place] [address] Aug, [facility] [address] [id number] [address] [place] [address], [place] [address] Aug, [facility] [address] [id number] [address] [place] [address], [place] [address] Aug, [facility] [address] [id number] [address] [place] [address], [place] [address] Aug, [facility] [address] [id number] [address] [place] [address], [place] [address] Aug, [facility] [address] [id number] [address] [place] [address], [place] [address] Aug, [facility] [address] [id number] [address] [place] [address], [place] [address] Aug, [facility] [address] [id number] [address] [place] [address], [place] [address] Jul, [facility] [address] [id number] [address] [place] [address], [place] [address] Jul, [facility] [address] [id number] [address] [place] [address], [place] [address] Jul, [facility] [address] [id number] [address] [place] [address], [place] [address] Jul, [facility] [address] [id number] [address] [place] [address], [place] [address] Jul, [facility] [address] [id number] [address] [place] [address], [place] [address] Jul, [facility] [address] [id number] [address] [place] [address], [place] [address] Jun, [facility] [address] [id number] [address] [place] [address], [place] [address] Jun, [facility] [address] [id number] [address] [place] [address], [place] [address] Jun, [facility] [address] [id number] [address] [place] [address], [place] [address] Jun, [facility] [address] [id number] [address] [place] [address], [place] [address] Jun, [facility] [address] [id number] [address] [place] [address], [place] [address] Jun, [facility] [address] [id number] [address] [place] [address], [place] [address] Jun, [facility] [address] [id number] [address] [place] [address], [place] [address] Jun, [facility] [address] [id number] [address] [place] [address], [place] [address] 10 Jun, 2012 [facility] [address] [id number] [address] [place] [address], [place] [address] 26 May, 2012 [facility] [address] [id number] [address] [place] [address], [place] [address] 24 May, 2012 [facility] [address] [id number] [address] [place] [address], [place] [address] 18 May, 2012 [facility] [address] [id number] [address] [place] [address], [place] [address] 30 Apr, 2012 [facility] [address] [id number] [address] [place] [address], [place] [address] Apr, [facility] [address] [id number] [address] [place] [address], [place] [address] 18 Apr, 2012 [facility] [address] [id number] [address] [place] [address], [place] [address] 14 Apr, 2012 [facility] [address] [id number] [address] [place] [address], [place] [address] Apr, [facility] [address] [id number] [address] [place] [address], [place] [address] Apr, [facility] [address] [id number] [address] [place] [address], [place] [address] Mar, [facility] [address] [id number] [address] [place] [address], [place] [address] Mar, [facility] [address] [id number] [address] [place] [address], [place] [address] Mar, [facility] [address] [id number] [address] [place] [address], [place] [address] Mar, [facility] [address] [id number] [address] [place] [address], [place] [address] Feb, [facility] [address] [id number] [address] [place] [address], [place] [address] Feb, [facility] [address] [id number] [address] [place] [address], [place] [address] Feb, [facility] [address] [id number] [address] [place] [address], [place] [address] Feb, [facility] [address] [id number] [address] [place] [address], [place] [address] Feb, [facility] [address] [id number] [address] [place] [address], [place] [address] January, [facility] [address] [id number] [address] [place] [address], [place] [address] January, [facility] [address] [id number] [address] [place] [address], [place] [address] January, [facility] [address] [id number] [address] [place] [address], [place] [address] January, [facility] [address] [id number] [address] [place] [address], [place] [address] January, [facility] [address] [id number] [address] [place] [address], [place] [address] January, [facility] [address] [id number] [address] [place] [address], [place] [address] Dec, [facility] [address] [id number] [address] [place] [address], [place] [address] Dec, [facility] [address] [id number] [address] [place] [address], [place] [address] Dec, [facility] [address] [id number] [address] [place] [address], [place] [address] Dec, [facility] [address] [id number] [address] [place] [address], [place] [address] Dec, [facility] [address] [id number] [address] [place] [address], [place] [address] Nov, [facility] [address] [id number] [address] [place] [address], [place] [address] Nov, [facility] [address] [id number] [address] [place] [address], [place] [address] Nov, [facility] [address] [id number] [address] [place] [address], [place] [address] Nov, [facility] [address] [id number] [address] [place] [address], [place] [address] Oct, [facility] [address] [id number] [address] [place] [address], [place] [address] Oct, [facility] [address] [id number] [address] [place] [address], [place] [address] Oct, [facility] [address] [id number] [address] [place] [address], [place] [address] Oct, [facility] [address] [id number] [address] [place] [address], [place] [address] Oct, [facility] [address] [id number] [address] [place] [address], [place] [address] Sep, [facility] [address] [id number] [address] [place] [address], [place] [address] Sep, [facility] [address] [id number] [address] [place] [address], [place] [address] Sep, [facility] [address] [id number] [address] [place] [address], [place] [address] Sep, [facility] [address] [id number] [address] [place] [address], [place] [address] Sep, [facility] [address] [id number] [address] [place] [address], [place] [address] Sep, [facility] [address] [id number] [address] [place] [address], [place] [address] Aug, [facility] [address] [id number] [address] [place] [address], [place] [address] Aug, [facility] [address] [id number] [address] [place] [address], [place] [address] Aug, [facility] [address] [id number] [address] [place] [address], [place] [address] Jul, [facility] [address] [id number] [address] [place] [address], [place] [address] Jul, [facility] [address] [id number] [address] [place] [address], [place] [address] Jul, [facility] [address] [id number] [address] [place] [address], [place] [address] Jul, [facility] [address] [id number] [address] [place] [address], [place] [address] Jun, [facility] [address] [id number] [address] [place] [address], [place] [address] 31 Jun, 2011 [facility] [address] [id number] [address] [place] [address], [place] [address] 18 Jun, 2011 [facility] [address] [id number] [address] [place] [address], [place] [address] 10 Jun, 2011 [facility] [address] [id number] [address] [place] [address], [place] [address] 10 Jun, 2011 [facility] [address] [id number] [address] [place] [address], [place] [address] 10 Jun, 2011 [facility] [address] [id number] [address] [place] [address], [place] [address] 11 Mar, 2011 [facility] [address] [id number] [address] [place] [address], [place] [address] 18 Dec, 2010 [facility] [address] [id number] [address] [place] [address], [place] [address] 11 Dec, 2010 [facility] [address] [id number] [address] [place] [address], [place] [address] 18 Nov, 2010 [facility] [address] [id number] [address] [place] [address], [place] [address] 16 Nov, 2010 [facility] [address] [id number] [address] [place] [address], [place] [address] Sep, [facility] [address] [id number] [address] [place] [address], [place] [address] Aug, [facility] [address] [id number] [address] [place] [address], [place] [address] Aug, [facility] [address] [id number] [address] [place] [address], [place] [address] Aug, [facility] [address] [id number] [address] [place] [address], [place] [address] Aug, [facility] [address] [id number] [address] [place] [address], [place] [address] 27 Aug, 2010 [facility] [address] [id number] [address] [place] [address], [place] [address] 14 Aug, 2010 [facility] [address] [id number] [address] [place] [address], [place] [address] 08 Aug, 2010 [facility] [address] [id number] [address] [place] [address], [place] [address] 08 Aug, 2010 [facility] [address] [id number] [address] [place] [address], [place] [address] 07 Aug, 2010 [facility] [address] [id number] [address] [place] [address], [place] [address] 06 Aug, 2010 [facility] [address] [id number] [address] [place] [address], [place] [address] 06 Aug, 2010 [facility] [address] [id number] [address] [place] [address], [place] [address] Aug, [facility] [address] [id number] [address] [place] [address], [place] [address] 30 Jul, 2010 [facility] [address] [id number] [address] [place] [address], [place] [address] 30 Jul, 2010 [facility] [address] [id number] [address] [place] [address], [place] [address] 30 Jul, 2010 [facility] [address] [id number] [address] [place] [address], [place] [address] 17 Jul, 2010 [facility] [address] [id number] [address] [place] [address], [place] [address] 08 Jul, 2010 [facility] [address] [id number] [address] [place] [address], [place] [address] Jul, [facility] [address] [id number] [address] [place] [address], [place] [address] 24 Jun, 2010 [facility] [address] [id number] [address] [place] [address], [place] [address] Jun, [facility] [address] [id number] [address] [place] [address], [place] [address] 19 Jun, 2010 [facility] [address] [id number] [address] [place] [address], [place] [address] 13 Jun, 2010 [facility] [address] [id number] [address] [place] [address], [place] [address] 16 Apr, 2010 [facility] [address] [id number] [address] [place] [address], [place] [address] Mar, [facility] [address] [id number] [address] [place] [address], [place] [address] 17 Feb, 2010 [facility] [address] [id number] [address] [place] [address], [place] [address] January, [facility] [address] [id number] [address] [place] [address], [place] [address] 15 Dec, 2009 [facility] [address] [id number] [address] [place] [address], [place] [address] Nov, [facility] [address] [id number] [address] [place] [address], [place] [address] Aug, [facility] [address] [id number] [address] [place] [address], [place] [address] Aug, [facility] [address] [id number] [address] [place] [address], [place] [address] Aug, [facility] [address] [id number] [address] [place] [address], [place] [address] Jul, [facility] [address] [id number] [address] [place] [address], [place] [address] Jul, [facility] [address] [id number] [address] [place] [address], [place] [address] Jul, [facility] [address] [id number] [address] [place] [address], [place] [address] 30 Jun, 2009 [facility] [address] [id number] [address] [place] [address], [place] [address] Jun, [facility] [address] [id number] [address] [place] [address] Jun, [facility] [address] [id number] [address] [place] [address] Jun, [facility] [address] [id number] [address] [place] [address] Jun, [facility] [address] [id number] [address] [place] [address] Jun, [facility] [address] [id number] [address] [place] [phone] Apr, [facility] [address] [id number] [address] [place] [address] Apr, [facility] [address] [id number] [address] [place] [address] Feb, [facility] [address] [id number] [address] [place] [address] January, [facility] [address] [id number] [address] [place] [address] Dec, IMMUNIZATIONS No Known Immunizations SOCIAL HISTORY Never Assessed REASON FOR VISIT PLAN OF CARE VITAL SIGNS MEDICATIONS Unknown Medications RESULTS No Results PROCEDURES Procedure Date Ordered Result Body Site PSYTX PT&/FAMILY 45 MINUTES Jul 16, 2014 INSTRUCTIONS MEDICATIONS ADMINISTERED No Known Medications MEDICAL (GENERAL) HISTORY Type Description Date Medical History type II diabetes Medical History coronary artery disease stress test 15 Medical History chronic obstructive pulmonary disease (C OPD) Medical History gastroesophageal reflux disease (GERD) Medical History acute renal failure Medical History erectile dysfunction Medical History hyperlipidemia Medical History obesity Medical History skin cancer-basal cell R alevism (removed ) Medical History Arthritis Medical History [...] inability to urinate 09/16/15 Hospitalization History [facility] inpatient mental health ea rly 2000's Hospitalization History hyperkalemia 10/2017 Hospitalization History fluid in lung
--- OUTSIDE RECORDS SUMMARY | 2020-03-01 17:16 | XMS REPORT ---
Author Author Michele WASHBURN Organization [facility] Address [address] [place] [address] Care Team Providers Care Size Worker Name Role Phone NOEMI WASHBURN Unavailable PROBLEMS Type Condition ICD9-CM Code [id number] Code Onset Dates Condition S tatus SNOMED Code Problem Cough R05 Active 43408787 Problem Benign prostatic hyperplasia with lower urinary tract symptoms, unspecified morphology N40.1 Active 82280 6007 Problem Eustachian tube dysfunction, unspecified laterality H69.80 Active 53455496 Problem Chronic pain G89.29 Active 9616659 1 Problem DM neuro manif type II E11.49 Active 93506870 Problem Diabetes E11.9 Active 44530796 Problem Leukocytosis D72.829 Active 3753769 06 Problem Falling R29.6 Active 231381165 Problem Pressure ulcer of other site, stage 3 L89.893 Active 927920156 Problem 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 Active 707065247 Problem Eye exam abnormal R93.8 Active 16 2338807 Problem Dysuria R30.0 Active 08681020 Problem Hypokalemia E87.6 Active 84097270 Problem Morbid obesity E66.01 Active 42146 6002 Problem Anxiety F41.9 Active 74751646 Problem Diabetic polyneuropathy associated with type 2 d iabetes mellitus E11.42 Active 54015006 Problem Essential hypertension I10 Active 83535222 Problem Bilateral primary osteoarthritis of knee M17.0 Active 034903476 Problem Polyneuropathy associated with underlying disease G63 Active 195051264 Problem Anemia of chronic illness D63.8 Acti ve 577642539 Problem Lymphocytosis D72.820 Active 423524 09 Problem Retinal edema H35.81 Active 165602 6 Problem Chronic lymphocytic leukemia C91.10 A ctive 33875578 Problem Bipolar disorder, in partial remission, most rec ent episode depressed F31.75 Active 93241668 Problem Pure hypercholesterolemia E78.00 Acti ve 038266078 Problem Primary osteoarthritis of right knee M17.11 Active 677100374737901 Problem Bipolar disorder F31.9 Active 137 05420 Problem Bipolar I disorder, most recent episode (or curr ent) mixed, moderate F31.62 Active 46721493 Problem Chronic diastolic (congestive) heart failure I50.3 2 Active 240177228 Problem Reactive airway disease J45.909 Active 776683796893 Problem Insomnia, unspecified type G47.00 Act sharon 979722616 Problem Other chronic pain G89.29 Active 8 4225614 Problem Other iron deficiency anemia D50.8 A ctive 40054758 Problem Mild cognitive impairment G31.84 Acti ve 783904053 Problem Skin cancer C44.90 Active 18948203 7 ALLERGIES No Information ENCOUNTERS Encounter Location Date Diagnosis [place] [address] [facility] [id number] [address] [place] [address] Jun, [place] [address] [place] [id number] [address] [place] [address] Jun, [place] [address] [place] [id number] [address] [place] [address] May, [facility] [address] [facility] [id number] [address] [place] [address] Apr, Chronic pain G89.29 and Bipo lar disorder F31.9 [place] [id number] [facility] [id number] [address] [place] [address] Mar, Bipolar disorder F31.9 and C hronic pain G89.29 [facility] [address] [facility] [id number] [address] [place] [address] Feb, Bipolar disorder F31.9 [facility] [address] [facility] [id number] [address] [place] [address] Feb, Cellulitis of right upper ex tremity L03.113 and Skin abrasion T14.8XXA [facility] [address] [facility] [id number] [address] [place] [address] Feb, Bipolar disorder, in partial remission, most recent episode depressed F31.75 and Mild cognitive impairment G31.84 [facility] [address] [id number] [address] [place] [address] Feb, Chronic pain G89.29 [facility] [address] [id number] [address] [place] [address] Feb, Bipolar disorder, in partial remission, most recent episode depressed F31.75 and Mild cognitive impairment G31.84 [facility] [address] [id number] [address] [place] [address] January, Bipolar disorder, in partial remission, most recent episode depressed F31.75 and Mild cognitive impairment G31.84 [facility] [address] [id number] [address] [place] [address] January, Chronic pain G89.29 and Bipo lar disorder F31.9 [facility] [address] [id number] [address] [place] [address] January, Bipolar disorder, in partial remission, most recent episode depressed F31.75 and Mild cognitive impairment G31.84 [facility] [address] [id number] [address] [place] [address] Dec, [facility] [address] [id number] [address] [place] [address] Dec, Chronic pain G89.29 and Bipo lar disorder F31.9 [facility] [address] [id number] [address] [place] [address] Dec, Edema of both lower extremit ies R60.0 [facility] [address] [id number] [address] [place] [address] Dec, Bipolar disorder F31.9 [facility] [address] [id number] [address] [place] [address] Dec, Bipolar disorder, in partial remission, most recent episode depressed F31.75 and Mild cognitive impairment G31.84 [facility] [address] [id number] [address] [place] [address] Nov, [place] [address] [place] [id number] [address] [place] [address] Nov, Chronic pain G89.29 [place] [address] [place] [id number] [address] [place] [address] Nov, Bipolar disorder, in partial remission, most recent episode depressed F31.75 and Mild cognitive impairment G31.84 [place] [address] [place] [id number] [address] [place] [address] Nov, Bipolar disorder F31.9 [place] [address] [place] [id number] [address] [place] [address] Nov, [facility] Z[facility].00 ; Polyneuropathy [...] unspecified morphology N40.1 and Essential hypertension I10 [place] [address] [place] [address] Oct, Chronic pain G89.29 [place] [address] [place] [address] Oct, Diabetes E11.9 [place] [address] [place] [id number] [address] [place] [address] Oct, Bipolar I disorder, most rec ent episode (or current) mixed, moderate F31.62 and Mild cognitive impairment G31.84 [place] [address] [place] [id number] [address] [place] [address] Oct, Bipolar I disorder, most rec ent episode (or current) mixed, moderate F31.62 and Mild cognitive impairment G31.84 [place] [address] [place] [id number] [address] [place] [address] Sep, Bipolar I disorder, most rec ent episode (or current) mixed, moderate F31.62 and Mild cognitive impairment G31.84 [facility] [address] [facility] [id number] [address] [place] [address] Sep, [facility] [address] [facility] [id number] [address] [place] [address] Sep, Diabetes E11.9 ; Hypoxia R09 .02 ; Hyperglycemia R73.9 ; Therapeutic drug monitoring Z51.81 ; BMI 50.0-59.9, adult Z68.43 and Skin cancer C44.90 [place] [address] [facility] [id number] [address] [place] [address] Sep, Chronic pain G89.29 [place] [address] [place] [id number] [address] [place] [address] Sep, Bipolar I disorder, most rec ent episode (or current) mixed, moderate F31.62 [facility] [address] [facility] [id number] [address] [place] [address] Sep, [facility] [address] [facility] [id number] [address] [place] [address] Sep, [facility] [address] [facility] [id number] [address] [place] [address] Aug, Chronic pain G89.29 [facility] [address] [facility] [id number] [address] [place] [address] Aug, Bipolar I disorder, most rec ent episode (or current) mixed, moderate F31.62 [facility] [address] [facility] [id number] [address] [place] [address] Aug, Bipolar I disorder, most rec ent episode (or current) mixed, moderate F31.62 and Mild cognitive impairment G31.84 [facility] [address] [facility] [id number] [address] [place] [address] Jul, [facility] [address] [id number] [address] [place] [address] Jul, Chronic pain G89.29 [facility] [address] [id number] [address] [place] [address] Jul, Bipolar I disorder, most rec ent episode (or current) mixed, moderate F31.62 and Mild cognitive impairment G31.84 [facility] [address] [id number] [address] [place] [address] Jul, Bipolar I disorder, most rec ent episode (or current) mixed, moderate F31.62 and MCI (mild cognitive impairment) G31.84 [facility] [address] [id number] [address] [place] [address] Jul, [facility] [address] [id number] [address] [place] [address] Jul, [facility] [address] [id number] [address] [place] [address] Jul, Bipolar I disorder, most rec ent episode (or current) mixed, moderate F31.62 [facility] [address] [id number] [address] [place] [address] Jul, Chronic pain G89.29 [facility] [address] [id number] [address] [place] [address] Jun, Bipolar I disorder, most rec ent episode (or current) mixed, moderate F31.62 [facility] [address] [id number] [address] [place] [address] Jun, Pre-procedure lab exam Z01.8 12 [facility] [address] [id number] [address] [place] [address] Jun, [facility] [address] [id number] [place] [id number] Jun, [facility] [address] [id number] [address] [place] [address] Jun, [facility] [address] [address] Jun, Forgetfulness R68.89 ; Pre-s yncope R55 ; Localized edema R60.0 ; Other iron deficiency anemia D50.8 and BMI 50.0-59.9, adult Z68.43 [place] [address] [address] Jun, Chronic pain G89.29 [place] [address] [address] Jun, Chronic pain G89.29 [place] [address] [address] Jun, Bipolar I disorder, most rec ent episode (or current) mixed, moderate F31.62 [place] [address] [address] May, Chronic pain G89.29 [place] [address] [address] Apr, [place] [address] [address] Apr, Chronic pain G89.29 [place] [address] [place] [id number] [place] [address] Apr, Primary osteoarthritis of ri ght knee M17.11 [place] [address] [address] Mar, [place] [address] [address] Mar, BMI 50.0-59.9, adult Z68.43 and Bipolar disorder, in partial remission, most recent episode depressed F31.75 [place] [address] [place] [id number] [place] [address] Mar, Diabetes E11.9 ; Pure hyperc holesterolemia E78.00 ; Essential hypertension I10 ; Nausea with vomiting, unspecified R11.2 and Headache, unspecified headache type R51 [facility] [address] [facility] [id number] [address] [place] [address] Mar, Bipolar I disorder, most rec ent episode (or current) mixed, moderate F31.62 [facility] [address] [facility] [id number] [address] [place] [address] Mar, Bipolar I disorder, most rec ent episode (or current) mixed, moderate F31.62 [place] [address] [place] [id number] [address] [place] [address] Mar, Chronic pain G89.29 [place] [address] [facility] [id number] [address] [place] [address] Mar, Bipolar I disorder, most rec ent episode (or current) mixed, moderate F31.62 [place] [address] [place] [id number] [address] [place] [address] Feb, Bipolar I disorder, most rec ent episode (or current) mixed, moderate F31.62 [place] [address] [place] [id number] [address] [place] [address] Feb, Chronic pain G89.29 [facility] [address] [place] [id number] [address] [place] [address] Feb, Decubitus ulcer of right josselin t, stage 3 L89.893 and BMI 50.0-59.9, adult Z68.43 [place] [address] [place] [id number] [address] [place] [address] Feb, Bipolar I disorder, most rec ent episode (or current) mixed, moderate F31.62 [place] [address] [place] [id number] [address] [place] [address] Feb, [facility] [address] [facility] [id number] [address] [place] [address] January, [facility] [address] [facility] [id number] [address] [place] [address] January, Chronic pain G89.29 [facility] [address] [facility] [id number] [address] [place] [address] January, Bipolar I disorder, most rec ent episode (or current) mixed, moderate F31.62 [facility] [address] [place] [id number] [address] [place] [address] January, Bipolar I disorder, most rec ent episode (or current) mixed, moderate F31.62 [place] [address] [place] [id number] [address] [place] [address] Dec, Bipolar I disorder, most rec ent episode (or current) mixed, moderate F31.62 and BMI 50.0-59.9, adult Z68.43 [place] [address] [place] [id number] [place] [address] Dec, Bipolar I disorder, most rec ent episode (or current) mixed, moderate F31.62 [place] [address] [address] Dec, Chronic pain G89.29 [place] [address] [place] [id number] [place] [address] Dec, DM neuro manif type II E11.4 9 ; Right flank pain R10.9 ; 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 ; Encounter for medication monitoring Z51.81 and BMI 50.0-59.9, adult Z68.43 [place] [address] [place] [id number] [address] [place] [address] Dec, Bipolar I disorder, most rec ent episode (or current) mixed, moderate F31.62 [place] [address] [place] [id number] [address] [place] [address] Nov, Bipolar I disorder, most rec ent episode (or current) mixed, moderate F31.62 [place] [address] [place] [id number] [address] [place] [address] Nov, Chronic pain G89.29 [place] [address] [place] [id number] [address] [place] [address] Nov, Bipolar I disorder, most rec ent episode (or current) mixed, moderate F31.62 [place] [address] [place] [id number] [address] [place] [address] Nov, Hypokalemia E87.6 [place] [address] [place] [id number] [place] [address] Nov, Bipolar I disorder, most rec ent episode (or current) mixed, moderate F31.62 [place] [address] [place] [id number] [place] [address] Oct, Chronic pain G89.29 [place] [address] [place] [id number] [place] [address] Oct, BMI 50.0-59.9, adult Z68.43 and Bipolar I disorder, most recent episode (or current) mixed, moderate F31.62 [place] [address] [address] Oct, Bipolar I disorder, most rec ent episode (or current) mixed, moderate F31.62 [place] [address] [address] Oct, [place] [address] [address] Oct, Hypokalemia E87.6 [place] [address] [address] Oct, DM neuro manif type II E11.4 9 [place] [address] [address] Oct, Bipolar I disorder, most rec ent episode (or current) mixed, moderate F31.62 [place] [address] [place] [id number] [place] [address] Oct, Bipolar I disorder, most rec ent episode (or current) mixed, moderate F31.62 [place] [address] [address] 14 Oct, 2017 Hyperkalemia E87.5 ; Falling R29.6 ; BMI 50.0-59.9, adult Z68.43 and Acute left ankle pain M25.572 [place] [address] [address] 08 Oct, 2017 DM neuro manif type II E11.4 9 [place] [address] [address] Oct, [place] [address] [address] Sep, Chronic pain G89.29 [place] [address] [address] Sep, [place] [address] [address] Sep, Bilateral primary osteoarthr itis of knee M17.0 [place] [address] [address] 18 Sep, 2017 Generalized edema R60.1 [place] [address] [address] 16 Sep, 2017 Bipolar I disorder, most rec ent episode (or current) mixed, moderate F31.62 [place] [address] [address] 15 Sep, 2017 Hypoxia R09.02 ; Other hyper volemia E87.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 ; Anemia of chronic illness D63.8 and BMI 50.0- 59.9, adult Z68.43 [place] [address] [address] Sep, [place] [address] [facility] [id number] [address] [place] [address] Sep, Bipolar I disorder, most rec ent episode (or current) mixed, moderate F31.62 [facility] [address] [facility] [id number] [address] [place] [address] Aug, Chronic pain G89.29 [facility] [address] [facility] [id number] [address] [place] [address] Aug, Generalized edema R60.1 [facility] [address] [id number] [address] [place] [address] Aug, [facility] [address] [facility] [id number] [address] [place] [address] 18 Aug, 2017 [facility] [address] [facility] [id number] [address] [place] [address] Aug, Bipolar I disorder, most rec ent episode (or current) mixed, moderate F31.62 [facility] [address] [facility] [id number] [address] [place] [address] 07 Aug, 2017 Bipolar I disorder, most rec ent episode (or current) mixed, moderate F31.62 [facility] [address] [facility] [id number] [address] [place] [address] 04 Aug, 2017 Chronic pain G89.29 [facility] [address] [facility] [id number] [address] [place] [address] 30 Jul, 2017 Bipolar I disorder, most rec ent episode (or current) mixed, moderate F31.62 [facility] [address] [facility] [id number] [address] [place] [address] 27 Jul, 2017 Bipolar I disorder, most rec ent episode (or current) mixed, moderate F31.62 and BMI 60.0-69.9, adult Z68.44 [facility] [address] [facility] [id number] [address] [place] [address] 16 Jul, 2017 Bipolar I disorder, most rec ent episode (or current) mixed, moderate F31.62 [place] [address] [facility] [id number] [address] [place] [address] Jul, Chronic pain G89.29 [facility] [address] [facility] [id number] [address] [place] [address] Jul, Bipolar I disorder, most rec ent episode (or current) mixed, moderate F31.62 [facility] [address] [facility] [id number] [address] [place] [address] Jun, Polyneuropathy associated wi th underlying disease G63 and Diabetes E11.9 [facility] [address] [facility] [id number] [address] [place] [address] Jun, Bipolar I disorder, most rec ent episode (or current) mixed, moderate F31.62 [place] [address] [facility] [id number] [address] [place] [address] Jun, Chronic pain G89.29 [facility] [address] [facility] [id number] [address] [place] [address] May, Bipolar I disorder, most rec ent episode (or current) mixed, moderate F31.62 [place] [address] [facility] [id number] [address] [place] [address] May, Bipolar I disorder, most rec ent episode (or current) mixed, moderate F31.62 [place] [address] [facility] [id number] [address] [place] [address] May, Diabetic polyneuropathy asso ciated with type 2 diabetes mellitus E11.42 [facility] [address] [facility] [id number] [address] [place] [address] 18 May, 2017 Bipolar I disorder, most rec ent episode (or current) mixed, moderate F31.62 [place] [address] [facility] [id number] [address] [place] [address] 13 May, 2017 Bipolar I disorder, most rec ent episode (or current) mixed, moderate F31.62 [place] [address] [place] [id number] [address] [place] [address] May, Chronic pain G89.29 [facility] [address] [id number] [address] [place] [address] Apr, Bipolar I disorder, most rec ent episode (or current) mixed, moderate F31.62 [facility] [address] [id number] [address] [place] [address] Apr, [facility] [address] [facility] [id number] [address] [place] [address] Apr, Chronic pain G89.29 and DM n euro manif type II E11.49 [facility] [address] [id number] [address] [place] [address] Apr, [facility] [address] [facility] [id number] [address] [place] [address] Apr, Bipolar I disorder, most rec ent episode (or current) mixed, moderate F31.62 [facility] [address] [facility] [id number] [address] [place] [address] Apr, Chronic pain G89.29 [facility] [address] [facility] [id number] [address] [place] [address] Apr, Iliotibial band syndrome, le ft M76.32 [facility] [address] [facility] [id number] [address] [place] [address] Apr, Bipolar I disorder, most rec ent episode (or current) mixed, moderate F31.62 [facility] [address] [facility] [id number] [address] [place] [address] Mar, Bipolar I disorder, most rec ent episode (or current) mixed, moderate F31.62 [facility] [address] [facility] [id number] [address] [place] [address] Mar, Bipolar I disorder, most rec ent episode (or current) mixed, moderate F31.62 [facility] [address] [facility] [id number] [address] [place] [address] Mar, [facility] [address] [place] [id number] [address] [place] [address] Mar, Bipolar I disorder, most rec ent episode (or current) mixed, moderate F31.62 [facility] [address] [facility] [id number] [address] [place] [phone] Mar, Chronic pain G89.29 [facility] [address] [facility] [id number] [address] [place] [phone] Mar, Bipolar I disorder, most rec ent episode (or current) mixed, moderate F31.62 [facility] [address] [facility] [id number] [address] [place] [phone] Mar, Bipolar I disorder, most rec ent episode (or current) mixed, moderate F31.62 [facility] [address] [facility] [id number] [address] [place] [phone] Mar, Acute pain of left knee M25. 562 ; Left hip pain M25.552 ; Generalized edema R60.1 and Tongue swelling R22.0 [facility] [address] [facility] [id number] [address] [place] [phone] Mar, [facility] [address] [facility] [id number] [address] [place] [phone] Feb, Chronic pain G89.29 [facility] [address] [facility] [id number] [address] [place] [phone] Feb, Diabetes E11.9 [facility] [address] [facility] [id number] [address] [place] [phone] January, Chronic pain G89.29 [facility] [address] [facility] [id number] [address] [place] [address] January, [facility] [address] [facility] [id number] [address] [place] [address] January, Bipolar I disorder, most rec ent episode (or current) mixed, moderate F31.62 [facility] [address] [facility] [id number] [address] [place] [address] Dec, Bipolar I disorder, most rec ent episode (or current) mixed, moderate F31.62 [facility] [address] [facility] [id number] [address] [place] [address] Dec, Chronic pain G89.29 [facility] [address] [facility] [id number] [address] [place] [address] Dec, Bipolar I disorder, most rec ent episode (or current) mixed, moderate F31.62 [facility] [address] [facility] [id number] [address] [place] [address] Dec, Diabetes E11.9 ; Essential h ypertension I10 ; Chronic pain G89.29 and Morbid obesity E66.01 [facility] [address] [facility] [id number] [address] [place] [address] Dec, [facility] [address] [facility] [id number] [address] [place] [address] Dec, Bipolar I disorder, most rec ent episode (or current) mixed, moderate F31.62 [facility] [address] [facility] [id number] [address] [place] [address] Dec, Bipolar I disorder, most rec ent episode (or current) mixed, moderate F31.62 [facility] [address] [facility] [id number] [address] [place] [address] Nov, Chronic pain G89.29 [facility] [address] [facility] [id number] [address] [place] [address] Nov, Bipolar I disorder, most rec ent episode (or current) mixed, moderate F31.62 [facility] [address] [facility] [id number] [address] [place] [address] Nov, [facility] [address] [facility] [id number] [address] [place] [address] Nov, Bipolar I disorder, most rec ent episode (or current) mixed, moderate F31.62 [facility] [address] [facility] [id number] [address] [place] [address] Nov, Bipolar I disorder, most rec ent episode (or current) mixed, moderate F31.62 [facility] [address] [facility] [id number] [address] [place] [address] Nov, [facility] [address] [facility] [id number] [address] [place] [address] Nov, [facility] [address] [facility] [id number] [address] [place] [address] Nov, [facility] [address] [facility] [id number] [address] [place] [address] Oct, Chronic pain G89.29 [facility] [address] [facility] [id number] [address] [place] [address] Oct, Bipolar I disorder, most rec ent episode (or current) mixed, moderate F31.62 [facility] [address] [facility] [id number] [address] [place] [address] Oct, [facility] [address] [facility] [id number] [address] [place] [address] Oct, Chronic pain G89.29 ; Diabet es E11.9 ; Anxiety F41.9 and 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 [facility] [address] [facility] [id number] [address] [place] [address] Oct, [facility] [address] [facility] [id number] [address] [place] [address] Oct, Diabetes E11.9 [facility] [address] [facility] [id number] [address] [place] [address] Oct, Bipolar I disorder, most rec ent episode (or current) mixed, moderate F31.62 [facility] [address] [facility] [id number] [address] [place] [address] Sep, Chronic pain G89.29 [facility] [address] [facility] [id number] [address] [place] [address] Sep, Chronic pain G89.29 [facility] [address] [id number] [address] [place] [address] Aug, Chronic pain G89.29 [facility] [address] [id number] [address] [place] [address] Jul, [facility] [address] [facility] [id number] [address] [place] [address] Jul, Diabetes E11.9 [facility] [address] [id number] [address] [place] [address] Jul, Chronic pain G89.29 [facility] [address] [id number] [address] [place] [address] Jul, Bipolar I disorder, most rec ent episode (or current) mixed, moderate F31.62 [place] [address] [facility] [id number] [address] [place] [address] Jun, Bipolar I disorder, most rec ent episode (or current) mixed, moderate F31.62 [facility] [address] [facility] [id number] [address] [place] [address] Jun, [facility] [address] [facility] [id number] [address] [place] [address] Jun, Bipolar I disorder, most rec ent episode (or current) mixed, moderate F31.62 [place] [address] [facility] [id number] [address] [place] [address] 30 May, 2016 Insomnia, unspecified type G 47.00 [facility] [address] [id number] [address] [place] [address] May, Bipolar I disorder, most rec ent episode (or current) mixed, moderate F31.62 [facility] [address] [facility] [id number] [address] [place] [address] 14 May, 2016 [facility] [address] [facility] [id number] [address] [place] [address] May, Bipolar I disorder, most rec ent episode (or current) mixed, moderate F31.62 [place] [id number] [facility] [id number] [address] [place] [address] May, Diabetes E11.9 and Essential hypertension I10 [facility] [address] [facility] [id number] [address] [place] [address] Apr, Chronic pain G89.29 [place] [address] [facility] [id number] [address] [place] [address] Apr, Bipolar I disorder, most rec ent episode (or current) mixed, moderate F31.62 [place] [address] [facility] [id number] [address] [place] [address] Apr, [place] [address] [facility] [id number] [address] [place] [address] Apr, [place] [address] [place] [id number] [address] [place] [address] Mar, Chronic pain G89.29 ; Headac he, unspecified headache type R51 ; Neuropathy G62.9 ; Pain of right hip joint M25.551 and Essential hypertension I10 [place] [address] [facility] [id number] [address] [place] [address] Mar, Chronic pain G89.29 [place] [address] [facility] [id number] [address] [place] [address] Mar, Bipolar I disorder, most rec ent episode (or current) mixed, moderate F31.62 [place] [address] [facility] [id number] [address] [place] [address] Feb, Bipolar I disorder, most rec ent episode (or current) mixed, moderate F31.62 and Insomnia, unspecified type G47.00 [facility] [address] [facility] [id number] [address] [place] [address] Feb, Chronic pain G89.29 [place] [address] [facility] [id number] [address] [place] [address] Feb, Bipolar I disorder, most rec ent episode (or current) mixed, moderate F31.62 [facility] [address] [id number] [address] [place] [address] January, Bipolar I disorder, most rec ent episode (or current) mixed, moderate F31.62 [facility] [address] [id number] [address] [place] [address] January, Chronic pain G89.29 [facility] [address] [id number] [address] [place] [address] January, Chronic pain G89.29 and Esse ntial hypertension I10 [facility] [address] [id number] [address] [place] [address] January, Bipolar I disorder, most rec ent episode (or current) mixed, moderate F31.62 [facility] [address] [id number] [address] [place] [address] Dec, [facility] [address] [id number] [address] [place] [address] Dec, [facility] [address] [id number] [address] [place] [address] Dec, [facility] [address] [facility] [id number] [address] [place] [address] Dec, [facility] [address] [id number] [address] [place] [address] Nov, Reactive airway disease J45. 909 [facility] [address] [id number] [address] [place] [address] Nov, [facility] [address] [id number] [address] [place] [address] Nov, [facility] [address] [id number] [address] [place] [address] Nov, [facility] [address] [id number] [address] [place] [address] Nov, [place] [address] [address] Nov, Onychomycosis B35.1 ; Hammer toe M20.40 ; Vanduser or callus L84 and DM neuro manif type II E11.49 [place] [address] [address] Nov, Chronic pain G89.29 ; Leukoc ytosis D72.829 and Diabetes E11.9 [place] [address] [address] Nov, [place] [address] [address] Oct, Bronchitis J40 [place] [address] [address] Oct, [place] [address] [address] Oct, [place] [address] [address] Oct, Mastoiditis, unspecified lat erality H70.90 and Type 2 diabetes mellitus with complication E11.8 [place] [address] [address] Sep, [place] [address] [address] Sep, Dysuria R30.0 ; Cough R05 ; Benign prostatic hyperplasia with lower urinary tract symptoms, unspecified morphology N40.1 ; Hypokalemia E87.6 and Eustachian tube dysfunction, unspecified laterality H69.80 [place] [address] [address] Sep, Moderate mixed bipolar I dis order F31.[address] [address] Sep, Hypokalemia E87.6 [facility] [address] [id number] [address] [place] [address] Sep, [facility] [address] [facility] [id number] [address] [place] [address] Sep, Upper respiratory tract infe ction, unspecified type J06.9 [facility] [address] [facility] [id number] [address] [place] [address] Aug, [facility] [address] [id number] [address] [place] [address] Aug, Dysuria R30.0 [facility] [address] [facility] [id number] [address] [place] [address] Aug, [facility] [address] [facility] [id number] [address] [place] [address] Jul, [facility] [address] [facility] [id number] [address] [place] [address] Jul, [facility] [address] [facility] [id number] [address] [place] [address] Jul, [facility] [address] [facility] [id number] [address] [place] [address] Jul, [facility] [address] [facility] [id number] [address] [place] [address] Jun, [facility] [address] [id number] [address] [place] [address] Jun, [facility] [address] [facility] [id number] [address] [place] [address] Jun, [facility] [address] [facility] [id number] [address] [place] [address] May, [facility] [address] [facility] [id number] [address] [place] [address] May, Bipolar I disorder, most rec ent episode (or current) mixed, moderate 296.62 [facility] [address] [facility] [id number] [address] [place] [address] May, [facility] [address] [facility] [id number] [address] [place] [address] May, Bipolar I disorder, most rec ent episode (or current) mixed, moderate 296.62 and Major depressive disorder, recurrent episode, severe, specified as with psychotic behavior 296.34 [facility] [address] [facility] [id number] [address] [place] [address] May, Bipolar I disorder, most rec ent episode (or current) mixed, moderate 296.62 [facility] [address] [facility] [id number] [address] [place] [address] May, [facility] [address] [place] [id number] [address] [place] [address] Apr, [facility] [address] [place] [id number] [address] [place] [address] Apr, [facility] [address] [place] [id number] [address] [place] [address] Apr, Unspecified disorder of kidn ey and ureter 593.9 and Diabetes mellitus type 2, uncontrolled 250.02 [facility] [address] [place] [id number] [address] [place] [address] Apr, [facility] [address] [facility] [id number] [address] [place] [address] Apr, [facility] [address] [place] [id number] [address] [place] [address] Apr, [facility] [address] [facility] [id number] [address] [place] [address] Apr, [facility] [address] [place] [id number] [address] [place] [address] Apr, Diabetes mellitus type II, u ncontrolled 250.02 [facility] [address] [facility] [id number] [address] [place] [address] Apr, [facility] [address] [place] [id number] [address] [place] [address] Mar, [facility] [address] [place] [id number] [address] [place] [address] Mar, [facility] [address] [place] [id number] [address] [place] [address] Mar, [facility] [address] [place] [id number] [place] [address] Mar, Major depressive disorder, r ecurrent episode, severe, specified as with psychotic behavior 296.34 and Bipolar I disorder, most recent episode (or current) mixed, moderate 296.62 [facility] [address] [place] [id number] [place] [address] Mar, Diabetes 250.00 ; Anuria 788 .5 ; Nausea and vomiting 787.01 and Diarrhea 787.91 [facility] [address] [place] [id number] [address] [place] [address] Mar, Diabetes 250.00 [facility] [address] [place] [id number] [address] [place] [address] Mar, [facility] [address] [place] [id number] [address] [place] [address] Mar, Diabetes 250.00 [facility] [address] [place] [id number] [address] [place] [address] Mar, [facility] [address] [place] [id number] [address] [place] [address] Mar, [facility] [address] [place] [id number] [address] [place] [address] Mar, [facility] [address] [place] [id number] [address] [place] [address] Mar, [facility] [address] [place] [id number] [address] [place] [address] Mar, Bipolar I disorder, most rec ent episode (or current) mixed, moderate 296.62 and Major depressive disorder, recurrent episode, severe, specified as with psychotic behavior 296.[address] [address] Mar, Magnesium deficiency 275.2 ; Hypokalemia 276.8 ; Nausea & vomiting 787.01 and Diabetes mellitus type 2, uncontrolled 250.[address] [address] Feb, [address] [address] Feb, Bipolar I disorder, most rec ent episode (or current) mixed, moderate 296.[address] [address] Feb, Nausea and vomiting 787.01 ; Left elbow pain 719.42 ; Anuria 788.5 and Diabetes 250.[address] [address] Feb, [address] [address] Feb, Hypopotassemia 276.8 and Hyp okalemia 276.[address] [address] Feb, Hypopotassemia 276.8 and Hyp okalemia 276.[address] [address] Feb, Seborrheic keratoses 702.[address] [address] Feb, Hypopotassemia 276.8 and Low magnesium levels 275.[address] [address] January, [address] [address] January, [facility] [address] [id number] [address] [place] [address] January, [facility] [address] [id number] [address] [place] [address] January, Scalp lesion 709.9 [facility] [address] [id number] [address] [place] [address] January, [facility] [address] [id number] [address] [place] [address] Dec, Tear of medial cartilage or meniscus of knee, current 836.0 and 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 [facility] [address] [id number] [address] [place] [address] Dec, [facility] [address] [id number] [address] [place] [address] Dec, [facility] [address] [id number] [address] [place] [address] Dec, Squamous cell carcinoma, 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 [facility] [address] [id number] [address] [place] [address] Dec, [facility] [address] [id number] [address] [place] [address] Dec, [facility] [address] [id number] [address] [place] [address] Nov, [facility] [address] [id number] [address] [place] [address] Nov, [facility] [address] [id number] [address] [place] [address] Nov, [facility] [address] [id number] [address] [place] [address] Nov, [facility] [address] [id number] [address] [place] [address] Nov, [facility] [address] [id number] [address] [place] [address], [place] [address] Nov, 2014 [facility] [address] [id number] [address] [place] [address], [place] [address] Nov, [facility] [address] [id number] [address] [place] [address], [place] [address] Nov, 2014 [facility] [address] [id number] [address] [place] [address], [place] [address] Nov, 2014 [facility] [address] [id number] [address] [place] [address], [place] [address] Nov, 2014 [facility] [address] [id number] [address] [place] [address], [place] [address] Nov, [facility] [address] [id number] [address] [place] [address], [place] [address] Nov, [facility] [address] [id number] [address] [place] [address], [place] [address] Oct, 2014 [facility] [address] [id number] [address] [place] [address], [place] [address] Oct, 2014 [facility] [address] [id number] [address] [place] [address], [place] [address] Oct, 2014 [facility] [address] [id number] [address] [place] [address] Oct, 2014 [facility] [address] [id number] [address] [place] [address] Oct, 2014 [facility] [address] [id number] [address] [place] [address], [place] [address] Oct, 2014 [facility] [address] [id number] [address] [place] [address], [place] [address] Oct, 2014 [facility] [address] [id number] [address] [place] [address] Oct, 2014 [facility] [address] [id number] [address] [place] [address] Oct, [facility] [address] [id number] [address] [place] [address], [place] [address] Sep, [facility] [address] [id number] [address] [place] [address], [place] [address] Sep, [facility] [address] [id number] [address] [place] [address], [place] [address] Sep, [facility] [address] [id number] [address] [place] [address], [place] [address] Sep, [facility] [address] [id number] [address] [place] [address], [place] [address] Sep, [facility] [address] [id number] [address] [place] [address], [place] [address] Sep, [facility] [address] [id number] [address] [place] [address], [place] [address] Sep, [facility] [address] [id number] [address] [place] [address], [place] [address] Sep, [facility] [address] [id number] [address] [place] [address], [place] [address] Sep, [facility] [address] [id number] [address] [place] [address], [place] [address] Sep, [facility] [address] [id number] [address] [place] [address], [place] [address] Sep, [facility] [address] [id number] [address] [place] [address], [place] [address] Sep, [facility] [address] [id number] [address] [place] [address], [place] [address] Sep, [facility] [address] [id number] [address] [place] [address], [place] [address] Sep, [facility] [address] [id number] [address] [place] [address], [place] [address] Sep, [facility] [address] [id number] [address] [place] [address], [place] [address] Sep, [facility] [address] [id number] [address] [place] [address], [place] [address] Aug, [facility] [address] [id number] [facility] [place] [address] Aug, [facility] [address] [id number] [address] [place] [address], [place] [address] Aug, [facility] [address] [id number] [address] [place] [address], [place] [address] Aug, [facility] [address] [id number] [address] [place] [address], [place] [address] Aug, [facility] [address] [id number] [address] [place] [address], [place] [address] Aug, [facility] [address] [id number] [address] [place] [address], [place] [address] Aug, [facility] [address] [id number] [address] [place] [address], [place] [address] Aug, [facility] [address] [id number] [address] [place] [address], [place] [address] Aug, [facility] [address] [id number] [address] [place] [address], [place] [address] Aug, [facility] [address] [id number] [address] [place] [address], [place] [address] Aug, [facility] [place] [address] [place], [place] [id number] Aug, [facility] [address] [id number] [address] [place] [address], [place] [address] Aug, [facility] [address] [id number] [address] [place] [address], [place] [address] Aug, [facility] [address] [id number] [address] [place] [address], [place] [address] Aug, [facility] [address] [id number] [address] [place] [address], [place] [address] Aug, [facility] [address] [id number] [address] [place] [address], [place] [address] Aug, [facility] [address] [id number] [address] [place] [address], [place] [address] Aug, [facility] [address] [id number] [address] [place] [address], [place] [address] Aug, [facility] [address] [id number] [address] [place] [address], [place] [address] Aug, [facility] [address] [id number] [address] [place] [address], [place] [address] Aug, [facility] [address] [id number] [address] [place] [address], [place] [address] Aug, [facility] [address] [id number] [address] [place] [address], [place] [address] Aug, [facility] [facility] [address] [id number] [address] [place] [address], [place] [address] Aug, [facility] [address] [id number] [address] [place] [address], [place] [address] Aug, [facility] [address] [id number] [address] [place] [address], [place] [address] Aug, [facility] [address] [id number] [address] [place] [address], [place] [address] Aug, [facility] [address] [id number] [address] [place] [address], [place] [address] Aug, [facility] [address] [id number] [address] [place] [address], [place] [address] Aug, [facility] [address] [id number] [address] [place] [address], [place] [address] Aug, [facility] [address] [id number] [address] [place] [address], [place] [address] Jul, [facility] [address] [id number] [address] [place] [address], [place] [address] Jul, [facility] [address] [id number] [address] [place] [address], [place] [address] Jul, [facility] [address] [id number] [address] [place] [address], [place] [address] Jul, [facility] [address] [id number] [address] [place] [address], [place] [address] Jul, [facility] [address] [id number] [address] [place] [address], [place] [address] Jul, [facility] [address] [id number] [address] [place] [address], [place] [address] Jul, [facility] [address] [id number] [address] [place] [address], [place] [address] Jul, [facility] [address] [id number] [address] [place] [address], [place] [address] Jul, [facility] [address] [id number] [address] [place] [address], [place] [address] Jul, [facility] [address] [id number] [address] [place] [address], [place] [address] Jun, [facility] [address] [id number] [address] [place] [address], [place] [address] Jun, [facility] [address] [id number] [address] [place] [address] 16 Jun, 2014 [facility] [address] [id number] [address] [place] [address], [place] [address] 16 Jun, 2014 [facility] [address] [id number] [address] [place] [address], [place] [address] 15 Jun, 2014 [facility] [address] [id number] [address] [place] [address], [place] [address] 15 Jun, 2014 [facility] [address] [id number] [address] [place] [address], [place] [address] 05 Jun, 2014 [facility] [address] [id number] [address] [place] [address], [place] [address] Jun, [facility] [address] [id number] [address] [place] [address], [place] [address] Jun, [facility] [address] [id number] [address] [place] [address], [place] [address] Jun, [facility] [address] [id number] [address] [place] [address], [place] [address] 29 May, 2013 [facility] [address] [id number] [address] [place] [address], [place] [address] 29 May, 2013 [facility] [address] [id number] [address] [place] [address], [place] [address] 26 May, 2013 [facility] [address] [id number] [address] [place] [address], [place] [address] 26 May, 2013 [facility] [address] [id number] [address] [place] [address], [place] [address] 17 May, 2013 [facility] [address] [id number] [address] [place] [address], [place] [address] 17 May, 2013 [facility] [address] [id number] [address] [place] [address], [place] [address] 15 May, 2013 [facility] [address] [id number] [address] [place] [address], [place] [address] 15 Sep, 2013 [facility] [address] [id number] [address] [place] [address], [place] [address] 15 Sep, 2013 [facility] [address] [id number] [address] [place] [address], [place] [address] 15 May, 2013 [facility] [address] [id number] [address] [place] [address], [place] [address] 10 May, 2013 [facility] [address] [id number] [address] [place] [address], [place] [address] May, [facility] [address] [id number] [facility] [place] [address] May, [facility] [address] [id number] [address] [place] [address], [place] [address] May, [facility] [address] [id number] [address] [place] [address], [place] [address] May, [facility] [address] [id number] [address] [place] [address], [place] [address] May, [facility] [address] [id number] [address] [place] [address], [place] [address] Apr, [facility] [address] [id number] [address] [place] [address], [place] [address] Apr, [facility] [address] [id number] [address] [place] [address], [place] [address] Apr, [facility] [address] [id number] [address] [place] [address], [place] [address] Apr, [facility] [address] [id number] [address] [place] [address], [place] [address] Apr, [facility] [address] [id number] [address] [place] [address], [place] [address] Apr, [facility] [address] [id number] [address] [place] [address], [place] [address] Apr, [facility] [address] [id number] [address] [place] [address], [place] [address] Apr, [facility] [address] [id number] [address] [place] [address], [place] [address] Apr, [facility] [address] [id number] [address] [place] [address], [place] [address] Apr, [facility] [address] [id number] [address] [place] [address], [place] [address] Apr, [facility] [address] [id number] [address] [place] [address], [place] [address] Apr, [facility] [address] [id number] [address] [place] [address], [place] [address] Apr, [facility] [address] [id number] [address] [place] [address], [place] [address] Apr, [facility] [address] [id number] [address] [place] [address], [place] [address] Apr, [facility] [address] [id number] [address] [place] [address], [place] [address] Mar, [facility] [address] [id number] [address] [place] [address], [place] [address] Mar, [facility] [address] [id number] [address] [place] [address], [place] [address] Mar, [facility] [address] [id number] [address] [place] [address], [place] [address] Mar, [facility] [address] [id number] [address] [place] [address], [place] [address] Mar, [facility] [address] [id number] [address] [place] [address], [place] [address] Mar, [facility] [address] [id number] [address] [place] [address], [place] [address] Mar, [facility] [address] [id number] [address] [place] [address], [place] [address] Mar, [facility] [address] [id number] [address] [place] [address], [place] [address] Mar, [facility] [address] [id number] [address] [place] [address], [place] [address] Mar, [facility] [address] [id number] [address] [place] [address], [place] [address] Mar, [facility] [address] [id number] [address] [place] [address], [place] [address] Mar, [facility] [address] [id number] [facility] [place] [address] Mar, 2013 [facility] [address] [id number] [facility] [place] [address] Mar, 2013 [facility] [address] [id number] [facility] [place] [address] Mar, 2013 [facility] [address] [id number] [facility] [place] [address] Mar, 2013 [facility] [address] [id number] [facility] [place] [address] Mar, 2013 [facility] [address] [id number] [address] [place] [address], [place] [address] Mar, [facility] [address] [id number] [address] [place] [address], [place] [address] Feb, [facility] [address] [id number] [address] [place] [address], [place] [address] Feb, [facility] [address] [id number] [address] [place] [address], [place] [address] Feb, [facility] [address] [id number] [address] [place] [address], [place] [address] Feb, [facility] [address] [id number] [address] [place] [address], [place] [address] Feb, [facility] [address] [id number] [address] [place] [address], [place] [address] Feb, [facility] [address] [id number] [address] [place] [address], [place] [address] Feb, [facility] [address] [id number] [address] [place] [address], [place] [address] Feb, [facility] [address] [id number] [address] [place] [address], [place] [address] Feb, [facility] [address] [id number] [address] [place] [address], [place] [address] Feb, [facility] [address] [id number] [facility] [place] [address] Feb, [facility] [address] [id number] [facility] [place] [address] Feb, [facility] [address] [id number] [facility] [place] [address] Feb, [facility] [address] [id number] [address] [place] [address], [place] [address] Feb, [facility] [address] [id number] [facility] [place] [address] January, [facility] [address] [id number] [address] [place] [address], [place] [address] January, [facility] [address] [id number] [address] [place] [address], [place] [address] January, [facility] [address] [id number] [address] [place] [address], [place] [address] January, [facility] [address] [id number] [address] [place] [address], [place] [address] January, [facility] [address] [id number] [address] [place] [address], [place] [address] January, [facility] [address] [id number] [address] [place] [address], [place] [address] January, [facility] [address] [id number] [address] [place] [address], [place] [address] January, [facility] [address] [id number] [address] [place] [address], [place] [address] January, [facility] [address] [id number] [address] [place] [address], [place] [address] January, [facility] [address] [id number] [facility] [place] [address] January, [facility] [address] [id number] [facility] [place] [address] January, [facility] [address] [id number] [address] [place] [address], [place] [address] January, [facility] [address] [id number] [address] [place] [address], [place] [address] January, [facility] [address] [id number] [address] [place] [address], [place] [address] Dec, [facility] [address] [id number] [address] [place] [address], [place] [address] Dec, [facility] [address] [id number] [address] [place] [address], [place] [address] Dec, [facility] [address] [id number] [address] [place] [address], [place] [address] Dec, [facility] [address] [id number] [address] [place] [address], [place] [address] Dec, [facility] [address] [id number] [address] [place] [address], [place] [address] Dec, [facility] [address] [id number] [address] [place] [address], [place] [address] Dec, [facility] [address] [id number] [address] [place] [address], [place] [address] Dec, [facility] [address] [id number] [address] [place] [address], [place] [address] Dec, [facility] [address] [id number] [address] [place] [address], [place] [address] Dec, [facility] [address] [id number] [address] [place] [address], [place] [address] Nov, [facility] [address] [id number] [address] [place] [address], [place] [address] Nov, [facility] [address] [id number] [address] [place] [address], [place] [address] Nov, [facility] [address] [id number] [facility] [place] [address] Nov, [facility] [address] [id number] [address] [place] [address], [place] [address] Nov, [facility] [address] [id number] [facility] [place] [address] Nov, [facility] [address] [id number] [address] [place] [address], [place] [address] Nov, [facility] [address] [id number] [address] [place] [address], [place] [address] Nov, [facility] [address] [id number] [address] [place] [address], [place] [address] Nov, [facility] [address] [id number] [address] [place] [address], [place] [address] Nov, [facility] [address] [id number] [address] [place] [address], [place] [address] Oct, [facility] [address] [id number] [address] [place] [address], [place] [address] Oct, [facility] [address] [id number] [address] [place] [address], [place] [address] Oct, [facility] [address] [id number] [address] [place] [address], [place] [address] Oct, [facility] [address] [id number] [address] [place] [address], [place] [address] Oct, [facility] [address] [id number] [address] [place] [address], [place] [address] Oct, [facility] [address] [id number] [address] [place] [address], [place] [address] 14 Oct, 2013 [facility] [address] [id number] [address] [place] [address], [place] [address] Oct, [facility] [address] [id number] [address] [place] [address], [place] [address] 05 Oct, 2013 [facility] [address] [id number] [address] [place] [address], [place] [address] Oct, [facility] [address] [id number] [address] [place] [address], [place] [address] Oct, [facility] [address] [id number] [address] [place] [address], [place] [address] Oct, [facility] [address] [id number] [address] [place] [address], [place] [address] Oct, [facility] [address] [id number] [address] [place] [address], [place] [address] Oct, [facility] [address] [id number] [address] [place] [address], [place] [address] Sep, [facility] [address] [id number] [address] [place] [address], [place] [address] Sep, [facility] [address] [id number] [address] [place] [address], [place] [address] Sep, [facility] [address] [id number] [address] [place] [address], [place] [address] Sep, [facility] [address] [id number] [address] [place] [address], [place] [address] Sep, [facility] [address] [id number] [address] [place] [address], [place] [address] Sep, [facility] [address] [id number] [address] [place] [address], [place] [address] Sep, [facility] [address] [id number] [address] [place] [address], [place] [address] Sep, [facility] [address] [id number] [address] [place] [address], [place] [address] Sep, [facility] [address] [id number] [address] [place] [address], [place] [address] Sep, [facility] [address] [id number] [address] [place] [address], [place] [address] Aug, [facility] [address] [id number] [address] [place] [address], [place] [address] Aug, [facility] [address] [id number] [address] [place] [address], [place] [address] Jul, [facility] [address] [id number] [address] [place] [address], [place] [address] Jul, [facility] [address] [id number] [address] [place] [address], [place] [address] Jul, [facility] [address] [id number] [address] [place] [address], [place] [address] Jul, [facility] [address] [id number] [address] [place] [address], [place] [address] Jul, [facility] [address] [id number] [address] [place] [address], [place] [address] Jul, [facility] [address] [id number] [address] [place] [address], [place] [address] Jul, [facility] [address] [id number] [address] [place] [address], [place] [address] Jul, [facility] [address] [id number] [address] [place] [address], [place] [address] Jul, [facility] [address] [id number] [address] [place] [address] Jul, [facility] [address] [id number] [address] [place] [address], [place] [address] Jul, [facility] [address] [id number] [address] [place] [address], [place] [address] Jul, [facility] [address] [id number] [address] [place] [address], [place] [address] Jul, [facility] [address] [id number] [address] [place] [address], [place] [address] 05 Jul, 2012 [facility] [address] [id number] [address] [place] [address], [place] [address] Jul, 2012 [facility] [address] [id number] [address] [place] [address], [place] [address] Jul, 2012 [facility] [address] [id number] [address] [place] [address], [place] [address] Jul, 2012 [facility] [address] [id number] [address] [place] [address], [place] [address] Jul, 2012 [facility] [address] [id number] [address] [place] [address], [place] [address] Jul, 2012 [facility] [address] [id number] [address] [place] [address], [place] [address] Jun, 2012 [facility] [address] [id number] [address] [place] [address], [place] [address] 16 Jun, 2012 [facility] [address] [id number] [address] [place] [address], [place] [address] Jun, 2012 [facility] [address] [id number] [address] [place] [address], [place] [address] Jun, 2012 [facility] [address] [id number] [address] [place] [address], [place] [address] 16 Jun, 2012 [facility] [address] [id number] [address] [place] [address], [place] [address] 16 Jun, 2012 [facility] [address] [id number] [address] [place] [id number] 10 Jun, 2012 [facility] [address] [id number] [address] [place] [address], [place] [address] 10 Jun, 2012 [facility] [address] [id number] [address] [place] [address], [place] [address] 09 Jun, 2012 [facility] [address] [id number] [address] [place] [id number] 09 Jun2012 [facility] [address] [id number] [address] [place] [address], [place] [address] Jun, [facility] [address] [id number] [address] [place] [address], [place] [address] May, 2012 [facility] [address] [id number] [address] [place] [address], [place] [address] 25 May, 2012 [facility] [address] [id number] [address] [place] [address], [place] [address] 19 May, 2012 [facility] [address] [id number] [address] [place] [address], [place] [address] 17 May, 2012 [facility] [address] [id number] [address] [place] [address], [place] [address] May, [facility] [address] [id number] [address] [place] [address], [place] [address] May, [facility] [address] [id number] [address] [place] [address], [place] [address] May, [facility] [address] [id number] [address] [place] [address], [place] [address] May, [facility] [address] [id number] [address] [place] [address], [place] [address] Apr, [facility] [address] [id number] [address] [place] [address], [place] [address] Apr, [facility] [address] [id number] [address] [place] [address], [place] [address] Apr, [facility] [address] [id number] [address] [place] [address], [place] [address] Apr, [facility] [address] [id number] [address] [place] [address], [place] [address] Apr, [facility] [address] [id number] [address] [place] [address], [place] [address] Mar, [facility] [address] [id number] [address] [place] [address], [place] [address] Mar, [facility] [address] [id number] [address] [place] [address], [place] [address] Mar, [facility] [address] [id number] [address] [place] [address], [place] [address] Mar, [facility] [address] [id number] [address] [place] [address], [place] [address] Mar, [facility] [address] [id number] [address] [place] [address], [place] [address] Mar, [facility] [address] [id number] [address] [place] [address], [place] [address] Mar, [facility] [address] [id number] [address] [place] [address], [place] [address] Mar, [facility] [address] [id number] [address] [place] [address], [place] [address] Feb, [facility] [address] [id number] [address] [place] [address], [place] [address] Feb, [facility] [address] [id number] [address] [place] [address], [place] [address] January, [facility] [address] [id number] [address] [place] [address], [place] [address] January, [facility] [address] [id number] [address] [place] [address], [place] [address] Dec, [facility] [address] [id number] [address] [place] [address], [place] [address] Dec, [facility] [facility] [address] [id number] [address] [place] [address], [place] [address] Nov, [facility] [address] [id number] [address] [place] [address], [place] [address] Nov, [facility] [address] [id number] [address] [place] [address], [place] [address] Nov, [facility] [address] [id number] [address] [place] [address], [place] [address] 14 Nov, 2012 [facility] [address] [id number] [address] [place] [address], [place] [address] Oct, [facility] [address] [id number] [address] [place] [address], [place] [address] Oct, [facility] [address] [id number] [address] [place] [address], [place] [address] Oct, [facility] [address] [id number] [address] [place] [address], [place] [address] Oct, [facility] [address] [id number] [address] [place] [address], [place] [address] 16 Oct, 2012 [facility] [address] [id number] [address] [place] [address], [place] [address] 14 Oct, 2012 [facility] [address] [id number] [address] [place] [address], [place] [address] 08 Oct, 2012 [facility] [address] [id number] [address] [place] [address], [place] [address] 07 Oct, 2012 [facility] [address] [id number] [address] [place] [address], [place] [address] 03 Oct, 2012 [facility] [address] [id number] [address] [place] [address], [place] [address] 30 Sep, 2012 [facility] [address] [id number] [address] [place] [address], [place] [address] Sep, [facility] [address] [id number] [address] [place] [address], [place] [address] Sep, [facility] [address] [id number] [address] [place] [address], [place] [address] Sep, [facility] [address] [id number] [address] [place] [address], [place] [address] 17 Sep, 2012 [facility] [address] [id number] [address] [place] [address], [place] [address] Sep, [facility] [address] [id number] [address] [place] [address], [place] [address] Sep, [facility] [address] [id number] [address] [place] [address], [place] [address] Sep, [facility] [address] [id number] [address] [place] [address], [place] [address] Aug, [facility] [address] [id number] [address] [place] [address], [place] [address] Aug, [facility] [address] [id number] [address] [place] [address], [place] [address] Aug, [facility] [address] [id number] [address] [place] [address], [place] [address] Aug, [facility] [address] [id number] [address] [place] [address], [place] [address] Aug, [facility] [address] [id number] [address] [place] [address], [place] [address] Aug, [facility] [address] [id number] [address] [place] [address], [place] [address] Aug, [facility] [address] [id number] [address] [place] [address], [place] [address] Aug, [facility] [address] [id number] [address] [place] [address], [place] [address] Jul, [facility] [address] [id number] [address] [place] [address], [place] [address] Jul, [facility] [address] [id number] [address] [place] [address], [place] [address] Jul, [facility] [address] [id number] [address] [place] [address], [place] [address] Jul, [facility] [address] [id number] [address] [place] [address], [place] [address] Jul, [facility] [address] [id number] [address] [place] [address], [place] [address] Jul, [facility] [address] [id number] [address] [place] [address], [place] [address] Jun, [facility] [address] [id number] [address] [place] [address], [place] [address] Jun, [facility] [address] [id number] [address] [place] [address], [place] [address] Jun, [facility] [address] [id number] [address] [place] [address], [place] [address] Jun, [facility] [address] [id number] [address] [place] [address], [place] [address] Jun, [facility] [address] [id number] [address] [place] [address], [place] [address] Jun, [facility] [address] [id number] [address] [place] [address], [place] [address] Jun, [facility] [address] [id number] [address] [place] [address], [place] [address] Jun, [facility] [address] [id number] [address] [place] [address], [place] [address] 10 Jun, 2012 [facility] [address] [id number] [address] [place] [address], [place] [address] 26 May, 2012 [facility] [address] [id number] [address] [place] [address], [place] [address] 24 May, 2012 [facility] [address] [id number] [address] [place] [address], [place] [address] 18 May, 2012 [facility] [address] [id number] [address] [place] [address], [place] [address] 30 Apr, 2012 [facility] [address] [id number] [address] [place] [address], [place] [address] Apr, [facility] [address] [id number] [address] [place] [address], [place] [address] Apr, [facility] [address] [id number] [address] [place] [address], [place] [address] Apr, [facility] [address] [id number] [address] [place] [address], [place] [address] Apr, [facility] [address] [id number] [address] [place] [address], [place] [address] Apr, [facility] [address] [id number] [address] [place] [address], [place] [address] Mar, [facility] [address] [id number] [address] [place] [address], [place] [address] Mar, [facility] [address] [id number] [address] [place] [address], [place] [address] Mar, [facility] [address] [id number] [address] [place] [address], [place] [address] Mar, [facility] [address] [id number] [address] [place] [address], [place] [address] Feb, [facility] [address] [id number] [address] [place] [address], [place] [address] Feb, [facility] [address] [id number] [address] [place] [address], [place] [address] Feb, [facility] [address] [id number] [address] [place] [address], [place] [address] Feb, [facility] [address] [id number] [address] [place] [address], [place] [address] Feb, [facility] [address] [id number] [address] [place] [address], [place] [address] January, [facility] [address] [id number] [address] [place] [address], [place] [address] January, [facility] [address] [id number] [address] [place] [address], [place] [address] January, [facility] [address] [id number] [address] [place] [address], [place] [address] January, [facility] [address] [id number] [address] [place] [address], [place] [address] January, [facility] [address] [id number] [address] [place] [address], [place] [address] January, [facility] [address] [id number] [address] [place] [address], [place] [address] Dec, [facility] [address] [id number] [address] [place] [address], [place] [address] Dec, [facility] [address] [id number] [address] [place] [address], [place] [address] Dec, [facility] [address] [id number] [address] [place] [address], [place] [address] Dec, [facility] [address] [id number] [address] [place] [address], [place] [address] Dec, [facility] [address] [id number] [address] [place] [address], [place] [address] Nov, [facility] [address] [id number] [address] [place] [address], [place] [address] Nov, [facility] [address] [id number] [address] [place] [address], [place] [address] Nov, [facility] [address] [id number] [address] [place] [address], [place] [address] Nov, [facility] [address] [id number] [address] [place] [address], [place] [address] Oct, [facility] [address] [id number] [address] [place] [address], [place] [address] Oct, [facility] [address] [id number] [address] [place] [address], [place] [address] 24 Oct, 2011 [facility] [address] [id number] [address] [place] [address], [place] [address] 13 Oct, 2011 [facility] [address] [id number] [address] [place] [address], [place] [address] Oct, [facility] [address] [id number] [address] [place] [address], [place] [address] Sep, [facility] [address] [id number] [address] [place] [address], [place] [address] Sep, [facility] [address] [id number] [address] [place] [address], [place] [address] Sep, [facility] [address] [id number] [address] [place] [address], [place] [address] Sep, [facility] [address] [id number] [address] [place] [address], [place] [address] Sep, [facility] [address] [id number] [address] [place] [address], [place] [address] Sep, [facility] [address] [id number] [address] [place] [address], [place] [address] Aug, [facility] [address] [id number] [address] [place] [address], [place] [address] Aug, [facility] [address] [id number] [address] [place] [address], [place] [address] Aug, [facility] [address] [id number] [address] [place] [address], [place] [address] Jul, [facility] [address] [id number] [address] [place] [address], [place] [address] Jul, [facility] [address] [id number] [address] [place] [address], [place] [address] Jul, [facility] [address] [id number] [address] [place] [address], [place] [address] Jul, [facility] [address] [id number] [address] [place] [address], [place] [address] Jun, [facility] [address] [id number] [address] [place] [address], [place] [address] 31 Jun, 2011 [facility] [address] [id number] [address] [place] [address], [place] [address] 18 Jun, 2011 [facility] [address] [id number] [address] [place] [address], [place] [address] 10 Jun, 2011 [facility] [address] [id number] [address] [place] [address], [place] [address] 10 Jun, 2011 [facility] [address] [id number] [address] [place] [address], [place] [address] 10 Jun, 2011 [facility] [address] [id number] [address] [place] [address], [place] [address] 11 Mar, 2011 [facility] [address] [id number] [address] [place] [address], [place] [address] 18 Dec, 2010 [facility] [address] [id number] [address] [place] [address], [place] [address] 11 Dec, 2010 [facility] [address] [id number] [address] [place] [address], [place] [address] 18 Nov, 2010 [facility] [address] [id number] [address] [place] [address], [place] [address] 16 Nov, 2010 [facility] [address] [id number] [address] [place] [address], [place] [address] Sep, [facility] [address] [id number] [address] [place] [address], [place] [address] 31 Aug, 2010 [facility] [address] [id number] [address] [place] [address], [place] [address] Aug, [facility] [address] [id number] [address] [place] [address], [place] [address] Aug, [facility] [address] [id number] [address] [place] [address], [place] [address] Aug, [facility] [address] [id number] [address] [place] [address], [place] [address] Aug, [facility] [address] [id number] [address] [place] [address], [place] [address] 14 Aug, 2010 [facility] [address] [id number] [address] [place] [address], [place] [address] 08 Aug, 2010 [facility] [address] [id number] [address] [place] [address], [place] [address] 08 Aug, 2010 [facility] [address] [id number] [address] [place] [address], [place] [address] 07 Aug, 2010 [facility] [address] [id number] [address] [place] [address], [place] [address] 06 Aug, 2010 [facility] [address] [id number] [address] [place] [address], [place] [address] Aug, [facility] [address] [id number] [address] [place] [address], [place] [address] Aug, [facility] [address] [id number] [address] [place] [address], [place] [address] Jul, [facility] [address] [id number] [address] [place] [address], [place] [address] 30 Jul, 2010 [facility] [address] [id number] [address] [place] [address], [place] [address] Jul, [facility] [address] [id number] [address] [place] [address], [place] [address] 17 Jul, 2010 [facility] [address] [id number] [address] [place] [address], [place] [address] Jul, [facility] [address] [id number] [address] [place] [address], [place] [address] Jul, [facility] [address] [id number] [address] [place] [address], [place] [address] Jun, [facility] [address] [id number] [address] [place] [address], [place] [address] Jun, [facility] [address] [id number] [address] [place] [address], [place] [address] Jun, [facility] [address] [id number] [address] [place] [address], [place] [address] 13 Jun, 2010 [facility] [address] [id number] [address] [place] [address], [place] [address] 16 Apr, 2010 [facility] [address] [id number] [address] [place] [address], [place] [address] Mar, [facility] [address] [id number] [address] [place] [address], [place] [address] Feb, [facility] [address] [id number] [address] [place] [address], [place] [address] January, [facility] [address] [id number] [address] [place] [address], [place] [address] 15 Dec, 2009 [facility] [address] [id number] [address] [place] [address], [place] [address] Nov, [facility] [address] [id number] [address] [place] [address] Aug, [facility] [address] [id number] [address] [place] [address], [place] [address] Aug, [facility] [address] [id number] [address] [place] [address] Aug, [facility] [address] [id number] [address] [place] [address] Jul, [facility] [address] [id number] [address] [place] [address] Jul, [facility] [address] [id number] [address] [place] [address] Jul, [facility] [address] [id number] [address] [place] [address] 30 Jun, 2009 [facility] [address] [id number] [address] [place] [address] 29 Jun, 2009 [facility] [address] [id number] [address] [place] [address] Jun, [facility] [address] [facility] [id number] [address] [place] [address] Jun, [facility] [address] [facility] [id number] [address] [place] [address] Jun, [facility] [address] [facility] [id number] [address] [place] [address] Jun, [facility] [address] [facility] [id number] [address] [place] [address] Apr, [facility] [address] [facility] [id number] [address] [place] [address] Apr, [facility] [address] [facility] [id number] [address] [place] [address] Feb, [facility] [address] [facility] [id number] [address] [place] [address] January, [facility] [address] [facility] [id number] [address] [place] [address] Dec, IMMUNIZATIONS No Known Immunizations SOCIAL HISTORY [...] inability to urinate 09/16/15 Hospitalization History [facility] mental health ea rly 2000's Hospitalization History hyperkalemia 10/2017 Hospitalization History fluid in lung
--- OUTSIDE RECORDS SUMMARY | 2020-03-01 17:17 | XMS REPORT ---
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 Name Role Phone NOEMI WASHBURN Unavailable PROBLEMS Type Condition ICD9-CM Code TRA75-CJ Code Onset Dates Condition S tatus SNOMED Code Problem Cough R05 Active 27286683 Problem Benign prostatic hyperplasia with lower urinary tract symptoms, unspecified morphology N40.1 Active 73597 6007 Problem Eustachian tube dysfunction, unspecified laterality H69.80 Active 14974936 Problem Chronic pain G89.29 Active 8220666 1 Problem DM neuro manif type II E11.49 Active 29736606 Problem Diabetes E11.9 Active 12103575 Problem Leukocytosis D72.829 Active 9842981 06 Problem Falling R29.6 Active 938405340 Problem Pressure ulcer of other site, stage 3 L89.893 Active 305840974 Problem 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 Active 513567235 Problem Eye exam abnormal R93.8 Active 16 7511849 Problem Dysuria R30.0 Active 03717547 Problem Hypokalemia E87.6 Active 01010602 Problem Morbid obesity E66.01 Active 75690 6002 Problem Anxiety F41.9 Active 64473077 Problem Diabetic polyneuropathy associated with type 2 d iabetes mellitus E11.42 Active 34941086 Problem Essential hypertension I10 Active 66398947 Problem Bilateral primary osteoarthritis of knee M17.0 Active 162863110 Problem Polyneuropathy associated with underlying disease G63 Active 852323396 Problem Anemia of chronic illness D63.8 Acti ve 928778917 Problem Lymphocytosis D72.820 Active 496762 09 Problem Retinal edema H35.81 Active 559684 6 Problem Chronic lymphocytic leukemia C91.10 A ctive 34590697 Problem Bipolar disorder, in partial remission, most rec ent episode depressed F31.75 Active 86245681 Problem Pure hypercholesterolemia E78.00 Acti ve 244898193 Problem Primary osteoarthritis of right knee M17.11 Active 070181068143706 Problem Bipolar disorder F31.9 Active 137 86494 Problem Bipolar I disorder, most recent episode (or curr ent) mixed, moderate F31.62 Active 39990923 Problem Chronic diastolic (congestive) heart failure I50.3 2 Active 210237102 Problem Reactive airway disease J45.909 Active 336959458396 Problem Insomnia, unspecified type G47.00 Act sharon 245100289 Problem Other chronic pain G89.29 Active 8 0196894 Problem Other iron deficiency anemia D50.8 A ctive 69514124 Problem Mild cognitive impairment G31.84 Acti ve 852481968 Problem Skin cancer C44.90 Active 12275270 7 ALLERGIES No Information ENCOUNTERS Encounter Location Date Diagnosis [place] [address] [address] [facility] [id number] [address] [place] [phone] Jun, [place] [address] [address] [place] [id number] [address] [place] [phone] Jun, [place] [address] [address] [place] [id number] [address] [place] [address] May, [facility] [address] [facility] [id number] [address] [place] [address] Apr, Chronic pain G89.29 and Bipo lar disorder F31.9 [place] [id number] [facility] [id number] [address] [place] [address] Mar, Bipolar disorder F31.9 and C hronic pain G89.29 [facility] [address] [facility] [id number] [address] [place] [phone] Feb, Bipolar disorder F31.9 [facility] [address] [facility] [id number] [address] [place] [address] Feb, Cellulitis of right upper ex tremity L03.113 and Skin abrasion T14.8XXA [facility] [address] [facility] [id number] [address] [place] [address] Feb, Bipolar disorder, in partial remission, most recent episode depressed F31.75 and Mild cognitive impairment G31.84 [facility] [address] [id number] [address] [place] [address] Feb, Chronic pain G89.29 [facility] [address] [id number] [address] [place] [address] Feb, Bipolar disorder, in partial remission, most recent episode depressed F31.75 and Mild cognitive impairment G31.84 [facility] [address] [id number] [address] [place] [address] January, Bipolar disorder, in partial remission, most recent episode depressed F31.75 and Mild cognitive impairment G31.84 [facility] [address] [id number] [address] [place] [address] January, Chronic pain G89.29 and Bipo lar disorder F31.9 [facility] [address] [id number] [address] [place] [phone] January, Bipolar disorder, in partial remission, most recent episode depressed F31.75 and Mild cognitive impairment G31.84 [facility] [address] [id number] [address] [place] [phone] Dec, [facility] [address] [id number] [address] [place] [phone] Dec, Chronic pain G89.29 and Bipo lar disorder F31.9 [facility] [address] [id number] [address] [place] [phone] Dec, Edema of both lower extremit ies R60.0 [facility] [address] [id number] [address] [place] [address] Dec, Bipolar disorder F31.9 [facility] [address] [id number] [address] [place] [address] Dec, Bipolar disorder, in partial remission, most recent episode depressed F31.75 and Mild cognitive impairment G31.84 [facility] [address] [id number] [address] [place] [phone] Nov, [place] [address] [address] [place] [id number] [address] [place] [address] Nov, Chronic pain G89.29 [place] [address] [address] [place] [id number] [address] [place] [address] Nov, Bipolar disorder, in partial remission, most recent episode depressed F31.75 and Mild cognitive impairment G31.84 [place] [address] [address] [place] [id number] [address] [place] [address] Nov, Bipolar disorder F31.9 [place] [address] [address] [place] [id number] [address] [place] [address] Nov, Encounter for [facility] exam Z00.00 ; Polyneuropathy associated [...] unspecified morphology N40.1 and Essential hypertension I10 [place] [address] [place] [address] Oct, Chronic pain G89.29 [place] [address] [place] [address] Oct, Diabetes E11.9 [place] [address] [address] [place] [id number] [address] [place] [id number] Oct, Bipolar I disorder, most rec ent episode (or current) mixed, moderate F31.62 and Mild cognitive impairment G31.84 [place] [address] [address] [place] [id number] [address] [place] [phone] Oct, Bipolar I disorder, most rec ent episode (or current) mixed, moderate F31.62 and Mild cognitive impairment G31.84 [place] [address] [address] [place] [id number] [address] [place] [address] Sep, Bipolar I disorder, most rec ent episode (or current) mixed, moderate F31.62 and Mild cognitive impairment G31.84 [facility] [address] [facility] [id number] [address] [place] [address] Sep, [facility] [address] [facility] [id number] [address] [place] [address] Sep, Diabetes E11.9 ; Hypoxia R09 .02 ; Hyperglycemia R73.9 ; Therapeutic drug monitoring Z51.81 ; BMI 50.0-59.9, adult Z68.43 and Skin cancer C44.90 [place] [address] [address] [facility] [id number] [address] [place] [address] Sep, Chronic pain G89.29 [place] [address] [place] [id number] [address] [place] [phone] Sep, Bipolar I disorder, most rec ent episode (or current) mixed, moderate F31.62 [facility] [address] [facility] [id number] [address] [place] [phone] Sep, [facility] [address] [facility] [id number] [address] [place] [phone] Sep, [facility] [address] [facility] [id number] [address] [place] [phone] Aug, Chronic pain G89.29 [facility] [address] [facility] [id number] [address] [place] [address] Aug, Bipolar I disorder, most rec ent episode (or current) mixed, moderate F31.62 [facility] [address] [facility] [id number] [address] [place] [phone] Aug, Bipolar I disorder, most rec ent episode (or current) mixed, moderate F31.62 and Mild cognitive impairment G31.84 [facility] [address] [facility] [id number] [address] [place] [address] Jul, [facility] [address] [id number] [address] [place] [address] Jul, Chronic pain G89.29 [facility] [address] [id number] [address] [place] [address] Jul, Bipolar I disorder, most rec ent episode (or current) mixed, moderate F31.62 and Mild cognitive impairment G31.84 [facility] [address] [id number] [address] [place] [phone] Jul, Bipolar I disorder, most rec ent episode (or current) mixed, moderate F31.62 and MCI (mild cognitive impairment) G31.84 [facility] [address] [id number] [address] [place] [phone] Jul, [facility] [address] [id number] [address] [place] [id number] Jul, [facility] [address] [id number] [address] [place] [id number] Jul, Bipolar I disorder, most rec ent episode (or current) mixed, moderate F31.62 [facility] [address] [id number] [address] [place] [address] Jul, Chronic pain G89.29 [facility] [address] [id number] [address] [place] [address] Jun, Bipolar I disorder, most rec ent episode (or current) mixed, moderate F31.62 [facility] [address] [id number] [address] [place] [address] Jun, Pre-procedure lab exam Z01.8 12 [facility] [address] [id number] [place] [id number] Jun, [facility] [address] [id number] [address] [place] [address] Jun, [facility] [address] [id number] [address] [place] [id number] Jun, [facility] [address] [address] Jun, Forgetfulness R68.89 ; Pre-s yncope R55 ; Localized edema R60.0 ; Other iron deficiency anemia D50.8 and BMI 50.0-59.9, adult Z68.43 [place] [address] [address] Jun, Chronic pain G89.29 [place] [address] [address] Jun, Chronic pain G89.29 [place] [address] [address] Jun, Bipolar I disorder, most rec ent episode (or current) mixed, moderate F31.62 [place] [address] [address] May, Chronic pain G89.29 [place] [address] [address] Apr, [place] [address] [address] Apr, Chronic pain G89.29 [place] [address] [place] [id number] [place] [address] Apr, Primary osteoarthritis of ri ght knee M17.11 [place] [address] [address] Mar, [place] [address] [address] Mar, BMI 50.0-59.9, adult Z68.43 and Bipolar disorder, in partial remission, most recent episode depressed F31.75 [place] [address] [place] [id number] [place] [address] Mar, Diabetes E11.9 ; Pure hyperc holesterolemia E78.00 ; Essential hypertension I10 ; Nausea with vomiting, unspecified R11.2 and Headache, unspecified headache type R51 [facility] [address] [facility] [id number] [address] [place] [phone] Mar, Bipolar I disorder, most rec ent episode (or current) mixed, moderate F31.62 [facility] [address] [facility] [id number] [address] [place] [address] Mar, Bipolar I disorder, most rec ent episode (or current) mixed, moderate F31.62 [place] [address] [place] [id number] [address] [place] [address] Mar, Chronic pain G89.29 [place] [address] [facility] [id number] [address] [place] [address] Mar, Bipolar I disorder, most rec ent episode (or current) mixed, moderate F31.62 [place] [address] [place] [id number] [address] [place] [address] Feb, Bipolar I disorder, most rec ent episode (or current) mixed, moderate F31.62 [place] [address] [place] [id number] [address] [place] [address] Feb, Chronic pain G89.29 [facility] [address] [place] [id number] [address] [place] [address] Feb, Decubitus ulcer of right josselin t, stage 3 L89.893 and BMI 50.0-59.9, adult Z68.43 [place] [address] [place] [id number] [address] [place] [address] Feb, Bipolar I disorder, most rec ent episode (or current) mixed, moderate F31.62 [place] [address] [place] [id number] [address] [place] [phone] Feb, [facility] [address] [facility] [id number] [address] [place] [id number] January, [facility] [address] [facility] [id number] [address] [place] [address] January, Chronic pain G89.29 [facility] [address] [facility] [id number] [address] [place] [address] January, Bipolar I disorder, most rec ent episode (or current) mixed, moderate F31.62 [facility] [address] [place] [id number] [address] [place] [id number] January, Bipolar I disorder, most rec ent episode (or current) mixed, moderate F31.62 [place] [address] [place] [id number] [address] [place] [address] Dec, Bipolar I disorder, most rec ent episode (or current) mixed, moderate F31.62 and BMI 50.0-59.9, adult Z68.43 [place] [address] [place] [id number] [place] [address] Dec, Bipolar I disorder, most rec ent episode (or current) mixed, moderate F31.62 [place] [address] [address] Dec, Chronic pain G89.29 [place] [address] [place] [id number] [place] [address] Dec, DM neuro manif type II E11.4 9 ; Right flank pain R10.9 ; 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 ; Encounter for medication monitoring Z51.81 and BMI 50.0-59.9, adult Z68.43 [place] [address] [place] [id number] [address] [place] [address] Dec, Bipolar I disorder, most rec ent episode (or current) mixed, moderate F31.62 [place] [address] [place] [id number] [address] [place] [id number] Nov, Bipolar I disorder, most rec ent episode (or current) mixed, moderate F31.62 [place] [address] [place] [id number] [address] [place] [address] Nov, Chronic pain G89.29 [place] [address] [place] [id number] [address] [place] [address] Nov, Bipolar I disorder, most rec ent episode (or current) mixed, moderate F31.62 [place] [address] [place] [id number] [address] [place] [address] Nov, Hypokalemia E87.6 [place] [address] [place] [id number] [place] [address] Nov, Bipolar I disorder, most rec ent episode (or current) mixed, moderate F31.62 [place] [address] [place] [id number] [place] [address] Oct, Chronic pain G89.29 [place] [address] [place] [id number] [place] [address] Oct, BMI 50.0-59.9, adult Z68.43 and Bipolar I disorder, most recent episode (or current) mixed, moderate F31.62 [place] [address] [address] Oct, Bipolar I disorder, most rec ent episode (or current) mixed, moderate F31.62 [place] [address] [address] Oct, [place] [address] [address] Oct, Hypokalemia E87.6 [place] [address] [address] Oct, DM neuro manif type II E11.4 9 [place] [address] [address] Oct, Bipolar I disorder, most rec ent episode (or current) mixed, moderate F31.62 [place] [address] [place] [id number] [place] [address] Oct, Bipolar I disorder, most rec ent episode (or current) mixed, moderate F31.62 [place] [address] [address] 14 Oct, 2017 Hyperkalemia E87.5 ; Falling R29.6 ; BMI 50.0-59.9, adult Z68.43 and Acute left ankle pain M25.572 [place] [address] [address] 08 Oct, 2017 DM neuro manif type II E11.4 9 [place] [address] [address] Oct, [place] [address] [address] Sep, Chronic pain G89.29 [place] [address] [address] Sep, [place] [address] [address] Sep, Bilateral primary osteoarthr itis of knee M17.0 [place] [address] [address] 18 Sep, 2017 Generalized edema R60.1 [place] [address] [address] 16 Sep, 2017 Bipolar I disorder, most rec ent episode (or current) mixed, moderate F31.62 [place] [address] [address] 15 Sep, 2017 Hypoxia R09.02 ; Other hyper volemia E87.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 ; Anemia of chronic illness D63.8 and BMI 50.0- 59.9, adult Z68.43 [place] [address] [address] Sep, [place] [address] [facility] [id number] [address] [place] [address] Sep, Bipolar I disorder, most rec ent episode (or current) mixed, moderate F31.62 [facility] [address] [facility] [id number] [address] [place] [address] Aug, Chronic pain G89.29 [facility] [address] [facility] [id number] [address] [place] [address] Aug, Generalized edema R60.1 [facility] [address] [id number] [address] [place] [address] Aug, [facility] [address] [facility] [id number] [address] [place] [address] Aug, [facility] [address] [facility] [id number] [address] [place] [address] Aug, Bipolar I disorder, most rec ent episode (or current) mixed, moderate F31.62 [facility] [address] [facility] [id number] [address] [place] [address] 07 Aug, 2017 Bipolar I disorder, most rec ent episode (or current) mixed, moderate F31.62 [facility] [address] [facility] [id number] [address] [place] [address] 04 Aug, 2017 Chronic pain G89.29 [facility] [address] [facility] [id number] [address] [place] [address] 30 Jul, 2017 Bipolar I disorder, most rec ent episode (or current) mixed, moderate F31.62 [facility] [address] [facility] [id number] [address] [place] [address] 27 Jul, 2017 Bipolar I disorder, most rec ent episode (or current) mixed, moderate F31.62 and BMI 60.0-69.9, adult Z68.44 [facility] [address] [facility] [id number] [address] [place] [address] 16 Jul, 2017 Bipolar I disorder, most rec ent episode (or current) mixed, moderate F31.62 [place] [address] [facility] [id number] [address] [place] [address] Jul, Chronic pain G89.29 [facility] [address] [facility] [id number] [address] [place] [address] Jul, Bipolar I disorder, most rec ent episode (or current) mixed, moderate F31.62 [facility] [address] [facility] [id number] [address] [place] [address] Jun, Polyneuropathy associated wi th underlying disease G63 and Diabetes E11.9 [facility] [address] [facility] [id number] [address] [place] [address] Jun, Bipolar I disorder, most rec ent episode (or current) mixed, moderate F31.62 [place] [address] [facility] [id number] [address] [place] [address] Jun, Chronic pain G89.29 [facility] [address] [facility] [id number] [address] [place] [address] May, Bipolar I disorder, most rec ent episode (or current) mixed, moderate F31.62 [place] [address] [facility] [id number] [address] [place] [address] May, Bipolar I disorder, most rec ent episode (or current) mixed, moderate F31.62 [place] [address] [facility] [id number] [address] [place] [address] May, Diabetic polyneuropathy asso ciated with type 2 diabetes mellitus E11.42 [facility] [address] [facility] [id number] [address] [place] [phone] 18 May, 2017 Bipolar I disorder, most rec ent episode (or current) mixed, moderate F31.62 [place] [address] [facility] [id number] [address] [place] [address] 13 May, 2017 Bipolar I disorder, most rec ent episode (or current) mixed, moderate F31.62 [place] [address] [place] [id number] [address] [place] [address] May, Chronic pain G89.29 [facility] [address] [id number] [address] [place] [address] Apr, Bipolar I disorder, most rec ent episode (or current) mixed, moderate F31.62 [facility] [address] [id number] [address] [place] [address] Apr, [facility] [address] [facility] [id number] [address] [place] [address] Apr, Chronic pain G89.29 and DM n euro manif type II E11.49 [facility] [address] [id number] [address] [place] [id number] Apr, [facility] [address] [facility] [id number] [address] [place] [id number] Apr, Bipolar I disorder, most rec ent episode (or current) mixed, moderate F31.62 [facility] [address] [facility] [id number] [address] [place] [id number] Apr, Chronic pain G89.29 [facility] [address] [facility] [id number] [address] [place] [id number] Apr, Iliotibial band syndrome, le ft M76.32 [facility] [address] [facility] [id number] [address] [place] [id number] Apr, Bipolar I disorder, most rec ent episode (or current) mixed, moderate F31.62 [facility] [address] [facility] [id number] [address] [place] [id number] Mar, Bipolar I disorder, most rec ent episode (or current) mixed, moderate F31.62 [facility] [address] [facility] [id number] [address] [place] [id number] Mar, Bipolar I disorder, most rec ent episode (or current) mixed, moderate F31.62 [facility] [facility] [address] [facility] [id number] [address] [place] [phone] Mar, [facility] [address] [place] [id number] [address] [place] [phone] Mar, Bipolar I disorder, most rec ent episode (or current) mixed, moderate F31.62 [facility] [address] [facility] [id number] [address] [place] [phone] Mar, Chronic pain G89.29 [facility] [address] [facility] [id number] [address] [place] [phone] Mar, Bipolar I disorder, most rec ent episode (or current) mixed, moderate F31.62 [facility] [address] [facility] [id number] [address] [place] [phone] Mar, Bipolar I disorder, most rec ent episode (or current) mixed, moderate F31.62 [facility] [address] [facility] [id number] [address] [place] [phone] Mar, Acute pain of left knee M25. 562 ; Left hip pain M25.552 ; Generalized edema R60.1 and Tongue swelling R22.0 [facility] [address] [facility] [id number] [address] [place] [phone] Mar, [facility] [address] [facility] [id number] [address] [place] [phone] Feb, Chronic pain G89.29 [facility] [address] [facility] [id number] [address] [place] [phone] Feb, Diabetes E11.9 [facility] [address] [facility] [id number] [address] [place] [phone] January, Chronic pain G89.29 [facility] [address] [facility] [id number] [address] [place] [phone] January, [facility] [address] [facility] [id number] [address] [place] [phone] January, Bipolar I disorder, most rec ent episode (or current) mixed, moderate F31.62 [facility] [address] [facility] [id number] [address] [place] [phone] Dec, Bipolar I disorder, most rec ent episode (or current) mixed, moderate F31.62 [facility] [address] [facility] [id number] [address] [place] [phone] Dec, Chronic pain G89.29 [facility] [address] [facility] [id number] [address] [place] [phone] Dec, Bipolar I disorder, most rec ent episode (or current) mixed, moderate F31.62 [facility] [address] [facility] [id number] [address] [place] [phone] Dec, Diabetes E11.9 ; Essential h ypertension I10 ; Chronic pain G89.29 and Morbid obesity E66.01 [facility] [address] [facility] [id number] [address] [place] [phone] Dec, [facility] [address] [facility] [id number] [address] [place] [phone] Dec, Bipolar I disorder, most rec ent episode (or current) mixed, moderate F31.62 [facility] [address] [facility] [id number] [address] [place] [phone] Dec, Bipolar I disorder, most rec ent episode (or current) mixed, moderate F31.62 [facility] [address] [facility] [id number] [address] [place] [phone] Nov, Chronic pain G89.29 [facility] [address] [facility] [id number] [address] [place] [phone] Nov, Bipolar I disorder, most rec ent episode (or current) mixed, moderate F31.62 [facility] [address] [facility] [id number] [address] [place] [phone] Nov, [facility] [address] [facility] [id number] [address] [place] [id number] Nov, Bipolar I disorder, most rec ent episode (or current) mixed, moderate F31.62 [facility] [address] [facility] [id number] [address] [place] [phone] Nov, Bipolar I disorder, most rec ent episode (or current) mixed, moderate F31.62 [facility] [address] [facility] [id number] [address] [place] [phone] Nov, [facility] [address] [facility] [id number] [address] [place] [id number] Nov, [facility] [address] [facility] [id number] [address] [place] [phone] Nov, [facility] [address] [facility] [id number] [address] [place] [phone] Oct, Chronic pain G89.29 [facility] [address] [facility] [id number] [address] [place] [id number] Oct, Bipolar I disorder, most rec ent episode (or current) mixed, moderate F31.62 [facility] [address] [facility] [id number] [address] [place] [id number] Oct, [facility] [address] [facility] [id number] [address] [place] [id number] Oct, Chronic pain G89.29 ; Diabet es E11.9 ; Anxiety F41.9 and 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 [facility] [address] [facility] [id number] [address] [place] [phone] Oct, [facility] [address] [facility] [id number] [address] [place] [id number] Oct, Diabetes E11.9 [facility] [address] [facility] [id number] [address] [place] [phone] Oct, Bipolar I disorder, most rec ent episode (or current) mixed, moderate F31.62 [facility] [address] [facility] [id number] [address] [place] [address] Sep, Chronic pain G89.29 [facility] [address] [facility] [id number] [address] [place] [address] Sep, Chronic pain G89.29 [facility] [address] [id number] [address] [place] [id number] Aug, Chronic pain G89.29 [facility] [address] [id number] [address] [place] [id number] Jul, [facility] [address] [facility] [id number] [address] [place] [id number] Jul, Diabetes E11.9 [facility] [address] [id number] [address] [place] [phone] Jul, Chronic pain G89.29 [facility] [address] [id number] [address] [place] [phone] Jul, Bipolar I disorder, most rec ent episode (or current) mixed, moderate F31.62 [place] [address] [facility] [id number] [address] [place] [phone] Jun, Bipolar I disorder, most rec ent episode (or current) mixed, moderate F31.62 [facility] [address] [facility] [id number] [address] [place] [phone] Jun, [facility] [address] [facility] [id number] [address] [place] [phone] Jun, Bipolar I disorder, most rec ent episode (or current) mixed, moderate F31.62 [place] [address] [facility] [id number] [address] [place] [phone] 30 May, 2016 Insomnia, unspecified type G 47.00 [facility] [address] [id number] [address] [place] [phone] May, Bipolar I disorder, most rec ent episode (or current) mixed, moderate F31.62 [facility] [address] [facility] [id number] [address] [place] [phone] 14 May, 2016 [facility] [address] [facility] [id number] [address] [place] [phone] May, Bipolar I disorder, most rec ent episode (or current) mixed, moderate F31.62 [place] [id number] [facility] [id number] [address] [place] [phone] May, Diabetes E11.9 and Essential hypertension I10 [facility] [address] [facility] [id number] [address] [place] [phone] Apr, Chronic pain G89.29 [place] [address] [facility] [id number] [address] [place] [phone] Apr, Bipolar I disorder, most rec ent episode (or current) mixed, moderate F31.62 [place] [address] [facility] [id number] [address] [place] [phone] Apr, [place] [address] [facility] [id number] [address] [place] [phone] Apr, [place] [address] [place] [id number] [address] [place] [phone] Mar, Chronic pain G89.29 ; Headac he, unspecified headache type R51 ; Neuropathy G62.9 ; Pain of right hip joint M25.551 and Essential hypertension I10 [place] [address] [facility] [id number] [address] [place] [address] Mar, Chronic pain G89.29 [place] [address] [facility] [id number] [address] [place] [phone] Mar, Bipolar I disorder, most rec ent episode (or current) mixed, moderate F31.62 [place] [address] [facility] [id number] [address] [place] [phone] Feb, Bipolar I disorder, most rec ent episode (or current) mixed, moderate F31.62 and Insomnia, unspecified type G47.00 [facility] [address] [facility] [id number] [address] [place] [phone] Feb, Chronic pain G89.29 [place] [address] [facility] [id number] [address] [place] [address] Feb, Bipolar I disorder, most rec ent episode (or current) mixed, moderate F31.62 [facility] [address] [id number] [address] [place] [phone] January, Bipolar I disorder, most rec ent episode (or current) mixed, moderate F31.62 [facility] [address] [id number] [address] [place] [address] January, Chronic pain G89.29 [facility] [address] [id number] [address] [place] [phone] January, Chronic pain G89.29 and Esse ntial hypertension I10 [facility] [address] [id number] [address] [place] [phone] January, Bipolar I disorder, most rec ent episode (or current) mixed, moderate F31.62 [facility] [address] [id number] [address] [place] [phone] Dec, [facility] [address] [id number] [address] [place] [id number] Dec, [facility] [address] [id number] [address] [place] [phone] Dec, [facility] [address] [facility] [id number] [address] [place] [phone] Dec, [facility] [address] [id number] [address] [place] [id number] Nov, Reactive airway disease J45. 909 [facility] [address] [id number] [address] [place] [phone] Nov, [facility] [address] [id number] [address] [place] [phone] Nov, [facility] [address] [id number] [address] [place] [phone] Nov, [facility] [address] [id number] [address] [place] [phone] Nov, [place] [address] [phone] Nov, Onychomycosis B35.1 ; Hammer toe M20.40 ; [place] or callus L84 and DM neuro manif type II E11.49 [place] [address] [address] Nov, Chronic pain G89.29 ; Leukoc ytosis D72.829 and Diabetes E11.9 [place] [address] [address] Nov, [place] [address] [address] Oct, Bronchitis J40 [place] [address] [address] Oct, [place] [address] [address] Oct, [place] [address] [address] Oct, Mastoiditis, unspecified lat erality H70.90 and Type 2 diabetes mellitus with complication E11.8 [place] [address] [address] Sep, [place] [address] [address] Sep, Dysuria R30.0 ; Cough R05 ; Benign prostatic hyperplasia with lower urinary tract symptoms, unspecified morphology N40.1 ; Hypokalemia E87.6 and Eustachian tube dysfunction, unspecified laterality H69.80 [place] [address] [address] Sep, Moderate mixed bipolar I dis order F31.[address] [address] Sep, Hypokalemia E87.6 [facility] [address] [id number] [address] [place] [id number] Sep, [facility] [address] [facility] [id number] [address] [place] [id number] Sep, Upper respiratory tract infe ction, unspecified type J06.9 [facility] [address] [facility] [id number] [address] [place] [phone] Aug, [facility] [address] [id number] [address] [place] [id number] Aug, Dysuria R30.0 [facility] [address] [facility] [id number] [address] [place] [id number] Aug, [facility] [address] [facility] [id number] [address] [place] [phone] Jul, [facility] [address] [facility] [id number] [address] [place] [id number] Jul, [facility] [address] [facility] [id number] [address] [place] [phone] Jul, [facility] [address] [facility] [id number] [address] [place] [phone] Jul, [facility] [address] [facility] [id number] [address] [place] [phone] Jun, [facility] [address] [id number] [address] [place] [id number] Jun, [facility] [address] [facility] [id number] [address] [place] [phone] Jun, [facility] [address] [facility] [id number] [address] [place] [phone] May, [facility] [address] [facility] [id number] [address] [place] [phone] May, Bipolar I disorder, most rec ent episode (or current) mixed, moderate 296.62 [facility] [address] [facility] [id number] [address] [place] [phone] May, [facility] [address] [facility] [id number] [address] [place] [id number] May, Bipolar I disorder, most rec ent episode (or current) mixed, moderate 296.62 and Major depressive disorder, recurrent episode, severe, specified as with psychotic behavior 296.34 [facility] [address] [facility] [id number] [address] [place] [id number] May, Bipolar I disorder, most rec ent episode (or current) mixed, moderate 296.62 [facility] [address] [facility] [id number] [address] [place] [phone] May, [facility] [address] [place] [id number] [address] [place] [id number] Apr, [facility] [address] [place] [id number] [address] [place] [id number] Apr, [facility] [address] [place] [id number] [address] [place] [phone] Apr, Unspecified disorder of kidn ey and ureter 593.9 and Diabetes mellitus type 2, uncontrolled 250.02 [facility] [address] [place] [id number] [address] [place] [phone] Apr, [facility] [address] [facility] [id number] [address] [place] [phone] Apr, [facility] [address] [place] [id number] [address] [place] [phone] Apr, [facility] [address] [facility] [id number] [address] [place] [phone] Apr, [facility] [address] [place] [id number] [address] [place] [address] Apr, Diabetes mellitus type II, u ncontrolled 250.02 [facility] [address] [facility] [id number] [address] [place] [phone] Apr, [facility] [address] [place] [id number] [address] [place] [phone] Mar, [facility] [address] [place] [id number] [address] [place] [phone] Mar, [facility] [address] [place] [id number] [address] [place] [phone] Mar, [facility] [address] [place] [id number] [place] [phone] Mar, Major depressive disorder, r ecurrent episode, severe, specified as with psychotic behavior 296.34 and Bipolar I disorder, most recent episode (or current) mixed, moderate 296.62 [facility] [address] [place] [id number] [place] [address] Mar, Diabetes 250.00 ; Anuria 788 .5 ; Nausea and vomiting 787.01 and Diarrhea 787.91 [facility] [address] [place] [id number] [address] [place] [address] Mar, Diabetes 250.00 [facility] [address] [place] [id number] [address] [place] [phone] Mar, [facility] [address] [place] [id number] [address] [place] [phone] Mar, Diabetes 250.00 [facility] [address] [place] [id number] [address] [place] [phone] Mar, [facility] [address] [place] [id number] [address] [place] [phone] Mar, [facility] [address] [place] [id number] [address] [place] [phone] Mar, [facility] [address] [place] [id number] [address] [place] [phone] Mar, [facility] [address] [place] [id number] [address] [place] [phone] Mar, Bipolar I disorder, most rec ent episode (or current) mixed, moderate 296.62 and Major depressive disorder, recurrent episode, severe, specified as with psychotic behavior 296.[address] [address] Mar, Magnesium deficiency 275.2 ; Hypokalemia 276.8 ; Nausea & vomiting 787.01 and Diabetes mellitus type 2, uncontrolled 250.[address] [address] Feb, [address] [address] Feb, Bipolar I disorder, most rec ent episode (or current) mixed, moderate 296.[address] [address] Feb, Nausea and vomiting 787.01 ; Left elbow pain 719.42 ; Anuria 788.5 and Diabetes 250.[address] [address] Feb, [address] [address] Feb, Hypopotassemia 276.8 and Hyp okalemia 276.[address] [address] Feb, Hypopotassemia 276.8 and Hyp okalemia 276.[address] [address] Feb, Seborrheic keratoses 702.[address] [address] Feb, Hypopotassemia 276.8 and Low magnesium levels 275.[address] [address] January, [address] [address] January, [facility] [address] [id number] [address] [place] [phone] January, [facility] [address] [id number] [address] [place] [phone] January, Scalp lesion 709.9 [facility] [address] [id number] [address] [place] [phone] January, [facility] [address] [id number] [address] [place] [phone] Dec, Tear of medial cartilage or meniscus of knee, current 836.0 and 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 [facility] [address] [id number] [address] [place] [phone] Dec, [facility] [address] [id number] [address] [place] [phone] Dec, [facility] [address] [id number] [address] [place] [phone] Dec, Squamous cell carcinoma, 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 [facility] [address] [id number] [address] [place] [phone] Dec, [facility] [address] [id number] [address] [place] [phone] Dec, [facility] [address] [id number] [address] [place] [phone] Nov, [facility] [address] [id number] [address] [place] [phone] Nov, [facility] [address] [id number] [address] [place] [id number] Nov, [facility] [address] [id number] [address] [place] [id number] Nov, [facility] [address] [id number] [address] [place] [id number] Nov, [facility] [address] [id number] [address] [place] [address], [place] [phone] Nov, 2014 [facility] [address] [id number] [address] [place] [address], [place] [address] Nov, [facility] [address] [id number] [address] [place] [address], [place] [address] Nov, 2014 [facility] [address] [id number] [address] [place] [address], [place] [address] Nov, 2014 [facility] [address] [id number] [address] [place] [address], [place] [address] Nov, 2014 [facility] [address] [id number] [address] [place] [address], [place] [address] Nov, [facility] [address] [id number] [address] [place] [address], [place] [address] Nov, [facility] [address] [id number] [address] [place] [address], [place] [address] Oct, 2014 [facility] [address] [id number] [address] [place] [address], [place] [address] Oct, 2014 [facility] [address] [id number] [address] [place] [address], [place] [address] Oct, 2014 [facility] [address] [id number] [address] [place] [id number] Oct, 2014 [facility] [address] [id number] [address] [place] [phone] Oct, 2014 [facility] [address] [id number] [address] [place] [address], [place] [address] Oct, 2014 [facility] [address] [id number] [address] [place] [address], [place] [address] Oct, 2014 [facility] [address] [id number] [address] [place] [id number] Oct, 2014 [facility] [address] [id number] [address] [place] [phone] Oct, [facility] [address] [id number] [address] [place] [address], [place] [address] Sep, [facility] [address] [id number] [address] [place] [address], [place] [address] Sep, [facility] [address] [id number] [address] [place] [address], [place] [address] Sep, [facility] [address] [id number] [place] [address], [place] [address] Sep, [facility] [address] [id number] [address] [place] [address], [place] [address] Sep, [facility] [address] [id number] [address] [place] [address], [place] [address] Sep, [facility] [address] [id number] [address] [place] [address], [place] [address] Sep, [facility] [address] [id number] [address] [place] [address], [place] [address] Sep, [facility] [address] [id number] [address] [place] [address], [place] [address] Sep, [facility] [address] [id number] [address] [place] [address], [place] [address] Sep, [facility] [address] [id number] [address] [place] [address], [place] [address] Sep, [facility] [address] [id number] [address] [place] [address], [place] [address] Sep, [facility] [address] [id number] [address] [place] [address], [place] [address] Sep, [facility] [address] [id number] [address] [place] [address], [place] [address] Sep, [facility] [address] [id number] [address] [place] [address], [place] [address] Sep, [facility] [address] [id number] [address] [place] [address], [place] [address] Sep, [facility] [address] [id number] [address] [place] [address], [place] [address] Aug, [facility] [address] [id number] [facility] [place] [address] Aug, [facility] [address] [id number] [address] [place] [address], [place] [address] Aug, [facility] [address] [id number] [address] [place] [address], [place] [address] Aug, [facility] [address] [id number] [address] [place] [address], [place] [address] Aug, [facility] [address] [id number] [address] [place] [address], [place] [address] Aug, [facility] [address] [id number] [address] [place] [address], [place] [address] Aug, [facility] [address] [id number] [address] [place] [address], [place] [address] Aug, [facility] [address] [id number] [address] [place] [address], [place] [address] Aug, [facility] [address] [id number] [address] [place] [address], [place] [address] Aug, [facility] [address] [id number] [address] [place] [address], [place] [address] Aug, [facility] [address] [place] [id number] Aug, [facility] [address] [id number] [address] [place] [address], [place] [address] Aug, [facility] [address] [id number] [address] [place] [address], [place] [address] Aug, [facility] [address] [id number] [address] [place] [address], [place] [address] Aug, [facility] [address] [id number] [address] [place] [address], [place] [address] Aug, [facility] [address] [id number] [address] [place] [address], [place] [address] Aug, [facility] [address] [id number] [address] [place] [address], [place] [address] Aug, [facility] [address] [id number] [address] [place] [address], [place] [address] Aug, [facility] [address] [id number] [address] [place] [address], [place] [address] Aug, [facility] [address] [id number] [address] [place] [address], [place] [address] Aug, [facility] [address] [id number] [address] [place] [address], [place] [address] Aug, [facility] [address] [id number] [address] [place] [address], [place] [address] Aug, [facility] [address] [id number] [address] [place] [address], [place] [address] Aug, [facility] [address] [id number] [address] [place] [address], [place] [address] Aug, [facility] [address] [id number] [address] [place] [address], [place] [address] Aug, [facility] [address] [id number] [address] [place] [address], [place] [address] Aug, [facility] [address] [id number] [address] [place] [address], [place] [address] Aug, [facility] [address] [id number] [address] [place] [address], [place] [address] Aug, [facility] [address] [id number] [address] [place] [address], [place] [address] Aug, [facility] [address] [id number] [address] [place] [address], [place] [address] Jul, [facility] [address] [id number] [address] [place] [address], [place] [address] Jul, [facility] [address] [id number] [address] [place] [address], [place] [address] Jul, [facility] [address] [id number] [address] [place] [address], [place] [address] Jul, [facility] [address] [id number] [address] [place] [address], [place] [address] Jul, [facility] [address] [id number] [address] [place] [address], [place] [address] Jul, [facility] [address] [id number] [address] [place] [address], [place] [address] Jul, [facility] [address] [id number] [address] [place] [address], [place] [address] Jul, [facility] [address] [id number] [address] [place] [address], [place] [address] Jul, [facility] [address] [id number] [address] [place] [address], [place] [address] Jul, [facility] [address] [id number] [address] [place] [address], [place] [address] Jun, [facility] [address] [id number] [address] [place] [address], [place] [address] Jun, [facility] [address] [id number] [address] [place] [address] 16 Jun, 2014 [facility] [address] [id number] [address] [place] [address], [place] [address] 16 Jun, 2014 [facility] [address] [id number] [address] [place] [address], [place] [address] 15 Jun, 2014 [facility] [address] [id number] [address] [place] [address], [place] [address] 15 Jun, 2014 [facility] [address] [id number] [address] [place] [address], [place] [address] 05 Jun, 2014 [facility] [address] [id number] [address] [place] [address], [place] [address] Jun, [facility] [address] [id number] [address] [place] [address], [place] [address] Jun, [facility] [address] [id number] [address] [place] [address], [place] [address] Jun, [facility] [address] [id number] [address] [place] [address], [place] [address] 29 May, 2013 [facility] [address] [id number] [address] [place] [address], [place] [address] 29 May, 2013 [facility] [address] [id number] [address] [place] [address], [place] [address] 26 May, 2013 [facility] [address] [id number] [address] [place] [address], [place] [address] 26 May, 2013 [facility] [address] [id number] [address] [place] [address], [place] [address] 17 May, 2013 [facility] [address] [id number] [address] [place] [address], [place] [address] 17 May, 2013 [facility] [address] [id number] [address] [place] [address], [place] [address] 15 May, 2013 [facility] [address] [id number] [address] [place] [address], [place] [address] 15 Sep, 2013 [facility] [address] [id number] [address] [place] [address], [place] [address] 15 Sep, 2013 [facility] [address] [id number] [address] [place] [address], [place] [address] 15 May, 2013 [facility] [address] [id number] [address] [place] [address], [place] [address] 10 May, 2013 [facility] [address] [id number] [address] [place] [address], [place] [address] May, [facility] [address] [id number] [facility] [place] [address] May, [facility] [address] [id number] [address] [place] [address], [place] [address] May, [facility] [address] [id number] [address] [place] [address], [place] [address] May, [facility] [address] [id number] [address] [place] [address], [place] [address] May, [facility] [address] [id number] [address] [place] [address], [place] [address] Apr, [facility] [address] [id number] [address] [place] [address], [place] [address] Apr, [facility] [address] [id number] [address] [place] [address], [place] [address] Apr, [facility] [address] [id number] [address] [place] [address], [place] [address] Apr, [facility] [address] [id number] [address] [place] [address], [place] [address] Apr, [facility] [address] [id number] [address] [place] [address], [place] [address] Apr, [facility] [address] [id number] [address] [place] [address], [place] [address] Apr, [facility] [address] [id number] [address] [place] [address], [place] [address] Apr, [facility] [address] [id number] [address] [place] [address], [place] [address] Apr, [facility] [address] [id number] [address] [place] [address], [place] [address] Apr, [facility] [address] [id number] [address] [place] [address], [place] [address] Apr, [facility] [address] [id number] [address] [place] [address], [place] [address] Apr, [facility] [address] [id number] [address] [place] [address], [place] [address] Apr, [facility] [address] [id number] [address] [place] [address], [place] [address] Apr, [facility] [address] [id number] [address] [place] [address], [place] [address] Apr, [facility] [address] [id number] [address] [place] [address], [place] [address] Mar, [facility] [address] [id number] [address] [place] [address], [place] [address] Mar, [facility] [address] [id number] [address] [place] [address], [place] [address] Mar, [facility] [address] [id number] [address] [place] [address], [place] [address] Mar, [facility] [address] [id number] [address] [place] [address], [place] [address] Mar, [facility] [address] [id number] [address] [place] [address], [place] [address] Mar, [facility] [address] [id number] [address] [place] [address], [place] [address] Mar, [facility] [address] [id number] [address] [place] [address], [place] [address] Mar, [facility] [address] [id number] [address] [place] [address], [place] [address] Mar, [facility] [address] [id number] [address] [place] [address], [place] [address] Mar, [facility] [address] [id number] [address] [place] [address], [place] [address] Mar, [facility] [address] [id number] [address] [place] [address], [place] [address] Mar, [facility] [address] [id number] [facility] [place] [address] Mar, 2013 [facility] [address] [id number] [facility] [place] [place] [address] Mar, 2013 [facility] [address] [id number] [facility] [place] [address] Mar, 2013 [facility] [address] [id number] [facility] [place] [address] Mar, 2013 [facility] [address] [id number] [facility] [place] [address] Mar, 2013 [facility] [address] [id number] [address] [place] [address], [place] [address] Mar, [facility] [address] [id number] [address] [place] [address], [place] [address] Feb, [facility] [address] [id number] [address] [place] [address], [place] [address] Feb, [facility] [address] [id number] [address] [place] [address], [place] [address] Feb, [facility] [address] [id number] [address] [place] [address], [place] [address] Feb, [facility] [address] [id number] [address] [place] [address], [place] [address] Feb, [facility] [address] [id number] [address] [place] [address], [place] [address] Feb, [facility] [address] [id number] [address] [place] [address], [place] [address] Feb, [facility] [address] [id number] [address] [place] [address], [place] [address] Feb, [facility] [address] [id number] [address] [place] [address], [place] [address] Feb, [facility] [address] [id number] [address] [place] [address], [place] [address] Feb, [facility] [address] [id number] [facility] [place] [address] Feb, [facility] [address] [id number] [facility] [place] [address] Feb, [facility] [address] [id number] [facility] [place] [address] Feb, [facility] [address] [id number] [address] [place] [address], [place] [address] Feb, [facility] [address] [id number] [facility] [place] [address] January, [facility] [address] [id number] [address] [place] [address], [place] [address] January, [facility] [address] [id number] [address] [place] [address], [place] [address] January, [facility] [address] [id number] [address] [place] [address], [place] [address] January, [facility] [address] [id number] [address] [place] [address], [place] [address] January, [facility] [address] [id number] [address] [place] [address], [place] [address] January, [facility] [address] [id number] [address] [place] [address], [place] [address] January, [facility] [address] [id number] [address] [place] [address], [place] [address] January, [facility] [address] [id number] [address] [place] [address], [place] [address] January, [facility] [address] [id number] [address] [place] [address], [place] [address] January, [facility] [address] [id number] [facility] [address] January, [facility] [address] [id number] [facility] [place] [address] January, [facility] [address] [id number] [address] [place] [address], [place] [address] January, [facility] [address] [id number] [address] [place] [address], [place] [address] January, [facility] [address] [id number] [address] [place] [address], [place] [address] Dec, [facility] [address] [id number] [address] [place] [address], [place] [address] Dec, [facility] [address] [id number] [address] [place] [address], [place] [address] Dec, [facility] [address] [id number] [address] [place] [address], [place] [address] Dec, [facility] [address] [id number] [address] [place] [address], [place] [address] Dec, [facility] [address] [id number] [address] [place] [address], [place] [address] Dec, [facility] [address] [id number] [address] [place] [address], [place] [address] Dec, [facility] [address] [id number] [address] [place] [address], [place] [address] Dec, [facility] [address] [id number] [address] [place] [address], [place] [address] Dec, [facility] [address] [id number] [address] [place] [address], [place] [address] Dec, [facility] [address] [id number] [address] [place] [address], [place] [address] Nov, [facility] [address] [id number] [address] [place] [address], [place] [address] Nov, [facility] [address] [id number] [address] [place] [address], [place] [address] Nov, [facility] [address] [id number] [facility] [place] [address] Nov, [facility] [address] [id number] [address] [place] [address], [place] [address] Nov, [facility] [address] [id number] [facility] [address] Nov, [facility] [address] [id number] [address] [place] [address], [place] [address] Nov, [facility] [address] [id number] [address] [place] [address], [place] [address] Nov, [facility] [address] [id number] [address] [place] [address], [place] [address] Nov, [facility] [address] [id number] [address] [place] [address], [place] [address] Nov, [facility] [address] [id number] [address] [place] [address], [place] [address] Oct, [facility] [address] [id number] [address] [place] [address], [place] [address] Oct, [facility] [address] [id number] [address] [place] [address], [place] [address] Oct, [facility] [address] [id number] [address] [place] [address], [place] [address] Oct, [facility] [address] [id number] [address] [place] [address], [place] [address] Oct, [facility] [address] [id number] [address] [place] [address], [place] [address] Oct, [facility] [address] [id number] [address] [place] [address], [place] [address] 14 Oct, 2013 [facility] [address] [id number] [address] [place] [address], [place] [address] Oct, [facility] [address] [id number] [address] [place] [address], [place] [address] 05 Oct, 2013 [facility] [address] [id number] [address] [place] [address], [place] [address] Oct, [facility] [address] [id number] [address] [place] [address], [place] [address] Oct, [facility] [address] [id number] [address] [place] [address], [place] [address] Oct, [facility] [address] [id number] [address] [place] [address], [place] [address] Oct, [facility] [address] [id number] [address] [place] [address], [place] [address] Oct, [facility] [address] [id number] [address] [place] [address], [place] [address] Sep, [facility] [address] [id number] [address] [place] [address], [place] [address] Sep, [facility] [address] [id number] [address] [place] [address], [place] [address] Sep, [facility] [address] [id number] [address] [place] [address], [place] [address] Sep, [facility] [address] [id number] [address] [place] [address], [place] [address] Sep, [facility] [address] [id number] [address] [place] [address], [place] [address] Sep, [facility] [address] [id number] [address] [place] [address], [place] [address] Sep, [facility] [address] [id number] [address] [place] [address], [place] [address] Sep, [facility] [address] [id number] [address] [place] [address], [place] [address] Sep, [facility] [address] [id number] [address] [place] [address], [place] [address] Sep, [facility] [address] [id number] [address] [place] [address], [place] [address] Aug, [facility] [address] [id number] [address] [place] [address], [place] [address] Aug, [facility] [address] [id number] [address] [place] [address], [place] [address] Jul, [facility] [address] [id number] [address] [place] [address], [place] [address] Jul, [facility] [address] [id number] [address] [place] [address], [place] [address] Jul, [facility] [address] [id number] [address] [place] [address], [place] [address] Jul, [facility] [address] [id number] [address] [place] [address], [place] [address] Jul, [facility] [address] [id number] [address] [place] [address], [place] [address] Jul, [facility] [address] [id number] [address] [place] [address], [place] [address] Jul, [facility] [address] [id number] [address] [place] [address], [place] [address] Jul, [facility] [address] [id number] [address] [place] [address], [place] [address] Jul, [facility] [address] [id number] [address] [place] [address] Jul, [facility] [address] [id number] [address] [place] [address], [place] [address] Jul, [facility] [address] [id number] [address] [place] [address], [place] [address] Jul, [facility] [address] [id number] [address] [place] [address], [place] [address] Jul, [facility] [address] [id number] [address] [place] [address], [place] [address] 05 Jul, 2012 [facility] [address] [id number] [address] [place] [address], [place] [address] Jul, 2012 [facility] [address] [id number] [address] [place] [address], [place] [address] Jul, 2012 [facility] [address] [id number] [address] [place] [address], [place] [address] Jul, 2012 [facility] [address] [id number] [address] [place] [address], [place] [address] Jul, 2012 [facility] [address] [id number] [address] [place] [address], [place] [address] Jul, 2012 [facility] [address] [id number] [address] [place] [address], [place] [address] Jun, 2012 [facility] [address] [id number] [address] [place] [address], [place] [address] 16 Jun, 2012 [facility] [address] [id number] [address] [place] [address], [place] [address] Jun, 2012 [facility] [address] [id number] [address] [place] [address], [place] [address] Jun, 2012 [facility] [address] [id number] [address] [place] [address], [place] [address] 16 Jun, 2012 [facility] [address] [id number] [address] [place] [address], [place] [address] 16 Jun, 2012 [facility] [address] [id number] [address] [place] [address] 10 Jun, 2012 [facility] [address] [id number] [address] [place] [address], [place] [address] 10 Jun, 2012 [facility] [address] [id number] [address] [place] [address], [place] [address] 09 Jun, 2012 [facility] [address] [id number] [address] [place] [address] 09 Jun2012 [facility] [address] [id number] [address] [place] [address], [place] [address] Jun, [facility] [address] [id number] [address] [place] [address], [place] [address] May, 2012 [facility] [address] [id number] [address] [place] [address], [place] [address] 25 May, 2012 [facility] [address] [id number] [address] [place] [address], [place] [address] 19 May, 2012 [facility] [address] [id number] [address] [place] [address], [place] [address] 17 May, 2012 [facility] [address] [id number] [address] [place] [address], [place] [address] May, [facility] [address] [id number] [address] [place] [address], [place] [address] May, [facility] [address] [id number] [address] [place] [address], [place] [address] May, [facility] [address] [id number] [address] [place] [address], [place] [address] May, [facility] [address] [id number] [address] [place] [address], [place] [address] Apr, [facility] [address] [id number] [address] [place] [address], [place] [address] Apr, [facility] [address] [id number] [address] [place] [address], [place] [address] Apr, [facility] [address] [id number] [address] [place] [address], [place] [address] Apr, [facility] [address] [id number] [address] [place] [address], [place] [address] Apr, [facility] [address] [id number] [address] [place] [address], [place] [address] Mar, [facility] [address] [id number] [address] [place] [address], [place] [address] Mar, [facility] [address] [id number] [address] [place] [address], [place] [address] Mar, [facility] [address] [id number] [address] [place] [address], [place] [address] Mar, [facility] [address] [id number] [address] [place] [address], [place] [address] Mar, [facility] [address] [id number] [address] [place] [address], [place] [address] Mar, [facility] [address] [id number] [address] [place] [address], [place] [address] Mar, [facility] [address] [id number] [address] [place] [address], [place] [address] Mar, [facility] [address] [id number] [address] [place] [address], [place] [address] Feb, [facility] [address] [id number] [address] [place] [address], [place] [address] Feb, [facility] [address] [id number] [address] [place] [address], [place] [address] January, [facility] [address] [id number] [address] [place] [address], [place] [address] January, [facility] [address] [id number] [address] [place] [address], [place] [address] Dec, [facility] [address] [id number] [address] [place] [address], [place] [address] Dec, [facility] [address] [id number] [address] [place] [address], [place] [address] Nov, [facility] [address] [id number] [address] [place] [address], [place] [address] Nov, [facility] [address] [id number] [address] [place] [address], [place] [address] Nov, [facility] [address] [id number] [address] [place] [address], [place] [address] 14 Nov, 2012 [facility] [address] [id number] [address] [place] [address], [place] [address] Oct, [facility] [address] [id number] [address] [place] [address], [place] [address] Oct, [facility] [address] [id number] [address] [place] [address], [place] [address] Oct, [facility] [address] [id number] [address] [place] [address], [place] [address] Oct, [facility] [address] [id number] [address] [place] [address], [place] [address] 16 Oct, 2012 [facility] [address] [id number] [address] [place] [address], [place] [address] 14 Oct, 2012 [facility] [address] [id number] [address] [place] [address], [place] [address] 08 Oct, 2012 [facility] [address] [id number] [address] [place] [address], [place] [address] 07 Oct, 2012 [facility] [address] [id number] [address] [place] [address], [place] [address] 03 Oct, 2012 [facility] [address] [id number] [address] [place] [address], [place] [address] 30 Sep, 2012 [facility] [address] [id number] [address] [place] [address], [place] [address] Sep, [facility] [address] [id number] [address] [place] [address], [place] [address] Sep, [facility] [address] [id number] [address] [place] [address], [place] [address] Sep, [facility] [address] [id number] [address] [place] [address], [place] [address] 17 Sep, 2012 [facility] [address] [id number] [address] [place] [address], [place] [address] Sep, [facility] [address] [id number] [address] [place] [address], [place] [address] Sep, [facility] [address] [id number] [address] [place] [address], [place] [address] Sep, [facility] [address] [id number] [address] [place] [address], [place] [address] Aug, [facility] [address] [id number] [address] [place] [address], [place] [address] Aug, [facility] [address] [id number] [address] [place] [address], [place] [address] Aug, [facility] [address] [id number] [address] [place] [address], [place] [address] Aug, [facility] [address] [id number] [address] [place] [address], [place] [address] Aug, [facility] [address] [id number] [address] [place] [address], [place] [address] Aug, [facility] [address] [id number] [address] [place] [address], [place] [address] Aug, [facility] [address] [id number] [address] [place] [address], [place] [address] Aug, [facility] [address] [id number] [address] [place] [address], [place] [address] Jul, [facility] [address] [id number] [address] [place] [address], [place] [address] Jul, [facility] [address] [id number] [address] [place] [address], [place] [address] Jul, [facility] [address] [id number] [address] [place] [address], [place] [address] Jul, [facility] [address] [id number] [address] [place] [address], [place] [address] Jul, [facility] [address] [id number] [address] [place] [address], [place] [address] Jul, [facility] [address] [id number] [address] [place] [address], [place] [address] Jun, [facility] [address] [id number] [address] [place] [address], [place] [address] Jun, [facility] [address] [id number] [address] [place] [address], [place] [address] Jun, [facility] [address] [id number] [address] [place] [address], [place] [address] Jun, [facility] [address] [id number] [address] [place] [address], [place] [address] Jun, [facility] [address] [id number] [address] [place] [address], [place] [address] Jun, [facility] [address] [id number] [address] [place] [address], [place] [address] Jun, [facility] [address] [id number] [address] [place] [address], [place] [address] Jun, [facility] [address] [id number] [address] [place] [address], [place] [address] 10 Jun, 2012 [facility] [address] [id number] [address] [place] [address], [place] [address] 26 May, 2012 [facility] [address] [id number] [address] [place] [address], [place] [address] 24 May, 2012 [facility] [address] [id number] [address] [place] [address], [place] [address] 18 May, 2012 [facility] [address] [id number] [address] [place] [address], [place] [address] 30 Apr, 2012 [facility] [address] [id number] [address] [place] [address], [place] [address] Apr, [facility] [address] [id number] [address] [place] [address], [place] [address] Apr, [facility] [address] [id number] [address] [place] [address], [place] [address] Apr, [facility] [address] [id number] [address] [place] [address], [place] [address] Apr, [facility] [address] [id number] [address] [place] [address], [place] [address] Apr, [facility] [address] [id number] [address] [place] [address], [place] [address] Mar, [facility] [address] [id number] [address] [place] [address], [place] [address] Mar, [facility] [address] [id number] [address] [place] [address], [place] [address] Mar, [facility] [address] [id number] [address] [place] [address], [place] [address] Mar, [facility] [address] [id number] [address] [place] [address], [place] [address] Feb, [facility] [address] [id number] [address] [place] [address], [place] [address] Feb, [facility] [address] [id number] [address] [place] [address], [place] [address] Feb, [facility] [address] [id number] [address] [place] [address], [place] [address] Feb, [facility] [address] [id number] [address] [place] [address], [place] [address] Feb, [facility] [address] [id number] [address] [place] [address], [place] [address] January, [facility] [address] [id number] [address] [place] [address], [place] [address] January, [facility] [address] [id number] [address] [place] [address], [place] [address] January, [facility] [address] [id number] [address] [place] [address], [place] [address] January, [facility] [address] [id number] [address] [place] [address], [place] [address] January, [facility] [address] [id number] [address] [place] [address], [place] [address] January, [facility] [address] [id number] [address] [place] [address], [place] [address] Dec, [facility] [address] [id number] [address] [place] [address], [place] [address] Dec, [facility] [address] [id number] [address] [place] [address], [place] [address] Dec, [facility] [address] [id number] [address] [place] [address], [place] [address] Dec, [facility] [address] [id number] [address] [place] [address], [place] [address] Dec, [facility] [address] [id number] [address] [place] [address], [place] [address] Nov, [facility] [address] [id number] [address] [place] [address], [place] [address] Nov, [facility] [address] [id number] [address] [place] [address], [place] [address] Nov, [facility] [address] [id number] [address] [place] [address], [place] [address] Nov, [facility] [address] [id number] [address] [place] [address], [place] [address] Oct, [facility] [address] [id number] [address] [place] [address], [place] [address] Oct, [facility] [address] [id number] [address] [place] [address], [place] [address] 24 Oct, 2011 [facility] [address] [id number] [address] [place] [address], [place] [address] 13 Oct, 2011 [facility] [address] [id number] [address] [place] [address], [place] [address] Oct, [facility] [address] [id number] [address] [place] [address], [place] [address] Sep, [facility] [address] [id number] [address] [place] [address], [place] [address] Sep, [facility] [address] [id number] [address] [place] [address], [place] [address] Sep, [facility] [address] [id number] [address] [place] [address], [place] [address] Sep, [facility] [address] [id number] [address] [place] [address], [place] [address] Sep, [facility] [address] [id number] [address] [place] [address], [place] [address] Sep, [facility] [address] [id number] [address] [place] [address], [place] [address] Aug, [facility] [address] [id number] [address] [place] [address], [place] [address] Aug, [facility] [address] [id number] [address] [place] [address], [place] [address] Aug, [facility] [address] [id number] [address] [place] [address], [place] [address] Jul, [facility] [address] [id number] [address] [place] [address], [place] [address] Jul, [facility] [address] [id number] [address] [place] [address], [place] [address] Jul, [facility] [address] [id number] [address] [place] [address], [place] [address] Jul, [facility] [address] [id number] [address] [place] [address], [place] [address] Jun, [facility] [address] [id number] [address] [place] [address], [place] [address] 31 Jun, 2011 [facility] [address] [id number] [address] [place] [address], [place] [address] 18 Jun, 2011 [facility] [address] [id number] [address] [place] [address], [place] [address] 10 Jun, 2011 [facility] [address] [id number] [address] [place] [address], [place] [address] 10 Jun, 2011 [facility] [address] [id number] [address] [place] [address], [place] [address] 10 Jun, 2011 [facility] [address] [id number] [address] [place] [address], [place] [address] 11 Mar, 2011 [facility] [address] [id number] [address] [place] [address], [place] [address] 18 Dec, 2010 [facility] [address] [id number] [address] [place] [address], [place] [address] 11 Dec, 2010 [facility] [address] [id number] [address] [place] [address], [place] [address] 18 Nov, 2010 [facility] [address] [id number] [address] [place] [address], [place] [address] 16 Nov, 2010 [facility] [address] [id number] [address] [place] [address], [place] [address] Sep, [facility] [address] [id number] [address] [place] [address], [place] [address] 31 Aug, 2010 [facility] [address] [id number] [address] [place] [address], [place] [address] Aug, [facility] [address] [id number] [address] [place] [address], [place] [address] Aug, [facility] [address] [id number] [address] [place] [address], [place] [address] Aug, [facility] [address] [id number] [address] [place] [address], [place] [address] Aug, [facility] [address] [id number] [address] [place] [address], [place] [address] 14 Aug, 2010 [facility] [address] [id number] [address] [place] [address], [place] [address] 08 Aug, 2010 [facility] [address] [id number] [address] [place] [address], [place] [address] 08 Aug, 2010 [facility] [address] [id number] [address] [place] [address], [place] [address] 07 Aug, 2010 [facility] [address] [id number] [address] [place] [address], [place] [address] 06 Aug, 2010 [facility] [address] [id number] [address] [place] [address], [place] [address] Aug, [facility] [address] [id number] [address] [place] [address], [place] [address] Aug, [facility] [address] [id number] [address] [place] [address], [place] [address] Jul, [facility] [address] [id number] [address] [place] [address], [place] [address] 30 Jul, 2010 [facility] [address] [id number] [address] [place] [address], [place] [address] Jul, [facility] [address] [id number] [address] [place] [address], [place] [address] 17 Jul, 2010 [facility] [address] [id number] [address] [place] [address], [place] [address] Jul, [facility] [address] [id number] [address] [place] [address], [place] [address] Jul, [facility] [address] [id number] [address] [place] [address], [place] [address] Jun, [facility] [address] [id number] [address] [place] [address], [place] [address] Jun, [facility] [address] [id number] [address] [place] [address], [place] [address] Jun, [facility] [address] [id number] [address] [place] [address], [place] [address] 13 Jun, 2010 [facility] [address] [id number] [address] [place] [address], [place] [address] 16 Apr, 2010 [facility] [address] [id number] [address] [place] [address], [place] [address] Mar, [facility] [address] [id number] [address] [place] [address], [place] [address] Feb, [facility] [address] [id number] [address] [place] [address], [place] [address] January, [facility] [address] [id number] [address] [place] [address], [place] [address] 15 Dec, 2009 [facility] [address] [id number] [address] [place] [address], [place] [address] Nov, [facility] [address] [id number] [address] [place] [phone] Aug, [facility] [address] [id number] [address] [place] [address], [place] [address] Aug, [facility] [address] [id number] [address] [place] [phone] Aug, [facility] [address] [id number] [address] [place] [phone] Jul, [facility] [address] [id number] [address] [place] [id number] Jul, [facility] [address] [id number] [address] [place] [phone] Jul, [facility] [address] [id number] [address] [place] [id number] 30 Jun, 2009 [facility] [address] [id number] [address] [place] [id number] 29 Jun, 2009 [facility] [address] [id number] [address] [place] [phone] Jun, [facility] [address] [facility] [id number] [address] [place] [phone] Jun, [facility] [address] [facility] [id number] [address] [place] [id number] Jun, [facility] [address] [facility] [id number] [address] [place] [phone] Jun, [facility] [address] [facility] [id number] [address] [place] [id number] Apr, [facility] [address] [facility] [id number] [address] [place] [phone] Apr, [facility] [address] [facility] [id number] [address] [place] [phone] Feb, [facility] [address] [facility] [id number] [address] [place] [phone] January, [facility] [address] [facility] [id number] [address] [place] [id number] Dec, IMMUNIZATIONS No Known Immunizations SOCIAL HISTORY [...] obesity Medical History skin cancer-basal cell [facility] (removed ) Medical History Arthritis Medical History [...] History inability to urinate 09/16/15 Hospitalization History [facility] e[facility]ly 2000's Hospitalization History hyperkalemia 10/2017 Hospitalization History fluid in lung
--- OUTSIDE RECORDS SUMMARY | 2020-03-01 17:18 | XMS REPORT ---
Author Author Michele WASHBURN Organization [facility] Address [address] [place] [address] Care Team Providers Care Frame Operator Name Role Phone NOEMI WASHBURN Unavailable PROBLEMS Type Condition ICD9-CM Code [id number] Code Onset Dates Condition S tatus SNOMED Code Problem Cough R05 Active 13232709 Problem Benign prostatic hyperplasia with lower urinary tract symptoms, unspecified morphology N40.1 Active 51064 6007 Problem Eustachian tube dysfunction, unspecified laterality H69.80 Active 02899320 Problem Chronic pain G89.29 Active 9974902 1 Problem DM neuro manif type II E11.49 Active 42638286 Problem Diabetes E11.9 Active 86878906 Problem Leukocytosis D72.829 Active 7596454 06 Problem Falling R29.6 Active 928006604 Problem Pressure ulcer of other site, stage 3 L89.893 Active 168601751 Problem 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 Active 390180831 Problem Eye exam abnormal R93.8 Active 16 8511822 Problem Dysuria R30.0 Active 28083134 Problem Hypokalemia E87.6 Active 59492100 Problem Morbid obesity E66.01 Active 09021 6002 Problem Anxiety F41.9 Active 72591973 Problem Diabetic polyneuropathy associated with type 2 d iabetes mellitus E11.42 Active 04965995 Problem Essential hypertension I10 Active 84135105 Problem Bilateral primary osteoarthritis of knee M17.0 Active 298529676 Problem Polyneuropathy associated with underlying disease G63 Active 153091172 Problem Anemia of chronic illness D63.8 Acti ve 005534901 Problem Lymphocytosis D72.820 Active 723330 09 Problem Retinal edema H35.81 Active 508741 6 Problem Chronic lymphocytic leukemia C91.10 A ctive 02081576 Problem Bipolar disorder, in partial remission, most rec ent episode depressed F31.75 Active 96514134 Problem Pure hypercholesterolemia E78.00 Acti ve 935891446 Problem Primary osteoarthritis of right knee M17.11 Active 065533215707752 Problem Bipolar disorder F31.9 Active 137 93537 Problem Bipolar I disorder, most recent episode (or curr ent) mixed, moderate F31.62 Active 77218891 Problem Chronic diastolic (congestive) heart failure I50.3 2 Active 759997127 Problem Reactive airway disease J45.909 Active 149468712161 Problem Insomnia, unspecified type G47.00 Act sharon 483125765 Problem Other chronic pain G89.29 Active 8 9301994 Problem Other iron deficiency anemia D50.8 A ctive 97225405 Problem Mild cognitive impairment G31.84 Acti ve 916847793 Problem Skin cancer C44.90 Active 70428184 7 ALLERGIES No Information ENCOUNTERS Encounter Location Date Diagnosis [place] [address] [facility] [id number] [address] [place] [id number] Jun, [place] [address] [place] [id number] [address] [place] [address] Jun, [place] [address] [place] [id number] [address] [place] [address] May, [facility] [address] [facility] [id number] [address] [place] [address] Apr, Chronic pain G89.29 and Bipo lar disorder F31.9 [place] [address] [facility] [id number] [address] [place] [address] Mar, Bipolar disorder F31.9 and C hronic pain G89.29 [facility] [address] [facility] [id number] [address] [place] [address] Feb, Bipolar disorder F31.9 [facility] [address] [facility] [id number] [address] [place] [address] Feb, Cellulitis of right upper ex tremity L03.113 and Skin abrasion T14.8XXA [facility] [address] [facility] [id number] [address] [place] [address] Feb, Bipolar disorder, in partial remission, most recent episode depressed F31.75 and Mild cognitive impairment G31.84 [facility] [address] [id number] [address] [place] [address] Feb, Chronic pain G89.29 [facility] [address] [id number] [address] [place] [address] Feb, Bipolar disorder, in partial remission, most recent episode depressed F31.75 and Mild cognitive impairment G31.84 [facility] [address] [id number] [address] [place] [address] January, Bipolar disorder, in partial remission, most recent episode depressed F31.75 and Mild cognitive impairment G31.84 [facility] [address] [id number] [address] [place] [id number] January, Chronic pain G89.29 and Bipo lar disorder F31.9 [facility] [address] [id number] [address] [place] [address] January, Bipolar disorder, in partial remission, most recent episode depressed F31.75 and Mild cognitive impairment G31.84 [facility] [address] [id number] [address] [place] [address] Dec, [facility] [address] [id number] [address] [place] [address] Dec, Chronic pain G89.29 and Bipo lar disorder F31.9 [facility] [address] [id number] [address] [place] [address] Dec, Edema of both lower extremit ies R60.0 [facility] [address] [id number] [address] [place] [address] Dec, Bipolar disorder F31.9 [facility] [address] [id number] [address] [place] [address] Dec, Bipolar disorder, in partial remission, most recent episode depressed F31.75 and Mild cognitive impairment G31.84 [facility] [address] [id number] [address] [place] [address] Nov, [place] [address] [place] [id number] [address] [place] [address] Nov, Chronic pain G89.29 [place] [address] [place] [id number] [address] [place] [address] Nov, Bipolar disorder, in partial remission, most recent episode depressed F31.75 and Mild cognitive impairment G31.84 [place] [address] [place] [id number] [address] [place] [address] Nov, Bipolar disorder F31.9 [place] [address] [place] [id number] [address] [place] [address] Nov, [facility] Z[facility].00 ; Polyneuropathy [...] unspecified morphology N40.1 and Essential hypertension I10 [place] [id number] [place] [address] Oct, Chronic pain G89.29 [place] [id number] [place] [address] Oct, Diabetes E11.9 [place] [address] [place] [id number] [address] [place] [address] Oct, Bipolar I disorder, most rec ent episode (or current) mixed, moderate F31.62 and Mild cognitive impairment G31.84 [place] [address] [place] [id number] [address] [place] [address] Oct, Bipolar I disorder, most rec ent episode (or current) mixed, moderate F31.62 and Mild cognitive impairment G31.84 [place] [address] [place] [id number] [address] [place] [address] Sep, Bipolar I disorder, most rec ent episode (or current) mixed, moderate F31.62 and Mild cognitive impairment G31.84 [facility] [address] [facility] [id number] [address] [place] [address] Sep, [facility] [address] [facility] [id number] [address] [place] [address] Sep, Diabetes E11.9 ; Hypoxia R09 .02 ; Hyperglycemia R73.9 ; Therapeutic drug monitoring Z51.81 ; BMI 50.0-59.9, adult Z68.43 and Skin cancer C44.90 [place] [address] [facility] [id number] [address] [place] [address] Sep, Chronic pain G89.29 [place] [address] [place] [id number] [address] [place] [address] Sep, Bipolar I disorder, most rec ent episode (or current) mixed, moderate F31.62 [facility] [address] [facility] [id number] [address] [place] [address] Sep, [facility] [address] [facility] [id number] [address] [place] [address] Sep, [facility] [address] [facility] [id number] [address] [place] [address] Aug, Chronic pain G89.29 [facility] [address] [facility] [id number] [address] [place] [address] Aug, Bipolar I disorder, most rec ent episode (or current) mixed, moderate F31.62 [facility] [address] [facility] [id number] [address] [place] [address] Aug, Bipolar I disorder, most rec ent episode (or current) mixed, moderate F31.62 and Mild cognitive impairment G31.84 [facility] [address] [facility] [id number] [address] [place] [address] Jul, [facility] [address] [id number] [address] [place] [address] Jul, Chronic pain G89.29 [facility] [address] [id number] [address] [place] [address] Jul, Bipolar I disorder, most rec ent episode (or current) mixed, moderate F31.62 and Mild cognitive impairment G31.84 [facility] [address] [id number] [address] [place] [address] Jul, Bipolar I disorder, most rec ent episode (or current) mixed, moderate F31.62 and MCI (mild cognitive impairment) G31.84 [facility] [address] [id number] [address] [place] [address] Jul, [facility] [address] [id number] [address] [place] [address] Jul, [facility] [address] [id number] [address] [place] [address] Jul, Bipolar I disorder, most rec ent episode (or current) mixed, moderate F31.62 [facility] [address] [id number] [address] [place] [address] Jul, Chronic pain G89.29 [facility] [address] [id number] [address] [place] [address] Jun, Bipolar I disorder, most rec ent episode (or current) mixed, moderate F31.62 [facility] [address] [id number] [address] [place] [address] Jun, Pre-procedure lab exam Z01.[address] [facility] [address] [id number] [address] [place] [address] Jun, [facility] [address] [id number] [place] [address] [id number] Jun, [facility] [address] [id number] [address] [place] [address] Jun, [facility] [address] [address] Jun, Forgetfulness R68.89 ; Pre-s yncope R55 ; Localized edema R60.0 ; Other iron deficiency anemia D50.8 and BMI 50.0-59.9, adult Z68.43 [place] [address] [address] Jun, Chronic pain G89.29 [place] [address] [address] Jun, Chronic pain G89.29 [place] [address] [address] Jun, Bipolar I disorder, most rec ent episode (or current) mixed, moderate F31.62 [place] [address] [address] May, Chronic pain G89.29 [place] [address] [address] Apr, [place] [address] [address] Apr, Chronic pain G89.29 [place] [address] [place] [id number] [place] [address] Apr, Primary osteoarthritis of ri ght knee M17.11 [place] [address] [address] Mar, [place] [address] [address] Mar, BMI 50.0-59.9, adult Z68.43 and Bipolar disorder, in partial remission, most recent episode depressed F31.75 [place] [address] [place] [id number] [place] [address] Mar, Diabetes E11.9 ; Pure hyperc holesterolemia E78.00 ; Essential hypertension I10 ; Nausea with vomiting, unspecified R11.2 and Headache, unspecified headache type R51 [facility] [address] [facility] [id number] [address] [place] [address] Mar, Bipolar I disorder, most rec ent episode (or current) mixed, moderate F31.62 [facility] [address] [facility] [id number] [address] [place] [address] Mar, Bipolar I disorder, most rec ent episode (or current) mixed, moderate F31.62 [place] [address] [place] [id number] [address] [place] [address] Mar, Chronic pain G89.29 [place] [address] [facility] [id number] [address] [place] [address] Mar, Bipolar I disorder, most rec ent episode (or current) mixed, moderate F31.62 [place] [address] [place] [id number] [address] [place] [address] Feb, Bipolar I disorder, most rec ent episode (or current) mixed, moderate F31.62 [place] [address] [place] [id number] [address] [place] [address] Feb, Chronic pain G89.29 [facility] [address] [place] [id number] [address] [place] [address] Feb, Decubitus ulcer of right josselin t, stage 3 L89.893 and BMI 50.0-59.9, adult Z68.43 [place] [address] [place] [id number] [place] [address] Feb, Bipolar I disorder, most rec ent episode (or current) mixed, moderate F31.62 [place] [address] [place] [id number] [address] [place] [address] Feb, [facility] [address] [facility] [id number] [address] [place] [address] January, [facility] [address] [facility] [id number] [address] [place] [address] January, Chronic pain G89.29 [facility] [address] [facility] [id number] [address] [place] [address] January, Bipolar I disorder, most rec ent episode (or current) mixed, moderate F31.62 [facility] [address] [place] [id number] [place] [address] January, Bipolar I disorder, most rec ent episode (or current) mixed, moderate F31.62 [place] [address] [place] [id number] [address] [place] [address] Dec, Bipolar I disorder, most rec ent episode (or current) mixed, moderate F31.62 and BMI 50.0-59.9, adult Z68.43 [place] [address] [place] [id number] [place] [address] Dec, Bipolar I disorder, most rec ent episode (or current) mixed, moderate F31.62 [place] [address] [address] Dec, Chronic pain G89.29 [place] [address] [place] [id number] [place] [address] Dec, DM neuro manif type II E11.4 9 ; Right flank pain R10.9 ; 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 ; Encounter for medication monitoring Z51.81 and BMI 50.0-59.9, adult Z68.43 [place] [address] [place] [id number] [address] [place] [address] Dec, Bipolar I disorder, most rec ent episode (or current) mixed, moderate F31.62 [place] [address] [place] [id number] [address] [place] [address] Nov, Bipolar I disorder, most rec ent episode (or current) mixed, moderate F31.62 [place] [address] [place] [id number] [address] [place] [address] Nov, Chronic pain G89.29 [place] [address] [place] [id number] [address] [place] [address] Nov, Bipolar I disorder, most rec ent episode (or current) mixed, moderate F31.62 [place] [address] [place] [id number] [address] [place] [address] Nov, Hypokalemia E87.6 [place] [address] [place] [id number] [place] [address] Nov, Bipolar I disorder, most rec ent episode (or current) mixed, moderate F31.62 [place] [address] [place] [id number] [place] [address] Oct, Chronic pain G89.29 [place] [address] [place] [id number] [place] [address] Oct, BMI 50.0-59.9, adult Z68.43 and Bipolar I disorder, most recent episode (or current) mixed, moderate F31.62 [place] [address] [address] Oct, Bipolar I disorder, most rec ent episode (or current) mixed, moderate F31.62 [place] [address] [address] Oct, [place] [address] [address] Oct, Hypokalemia E87.6 [place] [address] [address] Oct, DM neuro manif type II E11.4 9 [place] [address] [address] Oct, Bipolar I disorder, most rec ent episode (or current) mixed, moderate F31.62 [place] [address] [place] [id number] [place] [address] Oct, Bipolar I disorder, most rec ent episode (or current) mixed, moderate F31.62 [place] [address] [address] 14 Oct, 2017 Hyperkalemia E87.5 ; Falling R29.6 ; BMI 50.0-59.9, adult Z68.43 and Acute left ankle pain M25.572 [place] [address] [address] 08 Oct, 2017 DM neuro manif type II E11.4 9 [place] [address] [address] Oct, [place] [address] [address] Sep, Chronic pain G89.29 [place] [address] [address] Sep, [place] [address] [address] Sep, Bilateral primary osteoarthr itis of knee M17.0 [place] [address] [address] 18 Sep, 2017 Generalized edema R60.1 [place] [address] [address] 16 Sep, 2017 Bipolar I disorder, most rec ent episode (or current) mixed, moderate F31.62 [place] [address] [address] 15 Sep, 2017 Hypoxia R09.02 ; Other hyper volemia E87.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 [address] [facility] [id number] [address] [place] [address] Aug, Chronic pain G89.29 [facility] [address] [facility] [id number] [address] [place] [address] Aug, Generalized edema R60.1 [facility] [address] [id number] [address] [place] [address] Aug, [facility] [address] [facility] [id number] [address] [place] [address] Aug, [facility] [address] [facility] [id number] [address] [place] [address] Aug, Bipolar I disorder, most rec ent episode (or current) mixed, moderate F31.62 [facility] [address] [facility] [id number] [address] [place] [address] 07 Aug, 2017 Bipolar I disorder, most rec ent episode (or current) mixed, moderate F31.62 [facility] [address] [facility] [id number] [address] [place] [address] 04 Aug, [address] [facility] [address] [facility] [id number] [address] [place] [address] 30 Jul, 2017 Bipolar I disorder, most rec ent episode (or current) mixed, moderate F31.62 [facility] [address] [facility] [id number] [address] [place] [address] 27 Jul, 2017 Bipolar I disorder, most rec ent episode (or current) mixed, moderate F31.62 and BMI 60.0-69.9, adult Z68.44 [facility] [address] [facility] [id number] [address] [place] [address] 16 Jul, 2017 Bipolar I disorder, most rec ent episode (or current) mixed, moderate F31.62 [place] [address] [facility] [id number] [address] [place] [address] Jul, Chronic pain G89.29 [facility] [address] [facility] [id number] [address] [place] [address] Jul, Bipolar I disorder, most rec ent episode (or current) mixed, moderate F31.62 [facility] [address] [facility] [id number] [address] [place] [address] Jun, Polyneuropathy associated wi th underlying disease G63 and Diabetes E11.9 [facility] [address] [facility] [id number] [address] [place] [address] Jun, Bipolar I disorder, most rec ent episode (or current) mixed, moderate F31.62 [place] [address] [facility] [id number] [address] [place] [address] Jun, Chronic pain G89.29 [facility] [address] [facility] [id number] [address] [place] [address] May, Bipolar I disorder, most rec ent episode (or current) mixed, moderate F31.62 [place] [address] [facility] [id number] [address] [place] [address] May, Bipolar I disorder, most rec ent episode (or current) mixed, moderate F31.62 [place] [address] [facility] [id number] [address] [place] [address] May, Diabetic polyneuropathy asso ciated with type [address] [facility] [address] [facility] [id number] [address] [place] [address] 18 May, 2017 Bipolar I disorder, most rec ent episode (or current) mixed, moderate F31.62 [place] [address] [facility] [id number] [address] [place] [address] 13 May, 2017 Bipolar I disorder, most rec ent episode (or current) mixed, moderate F31.62 [place] [address] [place] [id number] [address] [place] [address] May, Chronic pain G89.29 [facility] [address] [id number] [address] [place] [address] Apr, Bipolar I disorder, most rec ent episode (or current) mixed, moderate F31.62 [facility] [address] [id number] [address] [place] [address] Apr, [facility] [address] [facility] [id number] [address] [place] [address] Apr, Chronic pain G89.29 and DM n euro manif type II E11.49 [facility] [address] [id number] [address] [place] [address] Apr, [facility] [address] [facility] [id number] [address] [place] [address] Apr, Bipolar I disorder, most rec ent episode (or current) mixed, moderate F31.62 [facility] [address] [facility] [id number] [address] [place] [address] Apr, Chronic pain G89.29 [facility] [address] [facility] [id number] [address] [place] [address] Apr, Iliotibial band syndrome, le ft M76.32 [facility] [address] [facility] [id number] [address] [place] [address] Apr, Bipolar I disorder, most rec ent episode (or current) mixed, moderate F31.62 [facility] [address] [facility] [id number] [address] [place] [id number] Mar, Bipolar I disorder, most rec ent episode (or current) mixed, moderate F31.62 [facility] [address] [facility] [id number] [address] [place] [id number] Mar, Bipolar I disorder, most rec ent episode (or current) mixed, moderate F31.62 [facility] [address] [facility] [id number] [address] [place] [id number] Mar, [facility] [address] [place] [id number] [address] [place] [id number] Mar, Bipolar I disorder, most rec ent episode (or current) mixed, moderate F31.62 [facility] [address] [facility] [id number] [address] [place] [id number] Mar, Chronic pain G89.29 [facility] [address] [facility] [id number] [address] [place] [id number] Mar, Bipolar I disorder, most rec ent episode (or current) mixed, moderate F31.62 [facility] [address] [facility] [id number] [address] [place] [id number] Mar, Bipolar I disorder, most rec ent episode (or current) mixed, moderate F31.62 [facility] [address] [facility] [id number] [address] [place] [id number] Mar, Acute pain of left knee M25. 562 ; Left hip pain M25.552 ; Generalized edema R60.1 and Tongue swelling R22.0 [facility] [address] [facility] [id number] [address] [place] [id number] Mar, [facility] [address] [facility] [id number] [address] [place] [id number] Feb, Chronic pain G89.29 [facility] [address] [facility] [id number] [address] [place] [id number] Feb, Diabetes E11.9 [facility] [address] [facility] [id number] [address] [place] [id number] January, Chronic pain G89.29 [facility] [address] [facility] [id number] [address] [place] [id number] January, [facility] [address] [facility] [id number] [address] [place] [id number] January, Bipolar I disorder, most rec ent episode (or current) mixed, moderate F31.62 [facility] [address] [facility] [id number] [address] [place] [id number] Dec, Bipolar I disorder, most rec ent episode (or current) mixed, moderate F31.62 [facility] [address] [facility] [id number] [address] [place] [id number] Dec, Chronic pain G89.29 [facility] [address] [facility] [id number] [address] [place] [id number] Dec, Bipolar I disorder, most rec ent episode (or current) mixed, moderate F31.62 [facility] [address] [facility] [id number] [address] [place] [address] Dec, Diabetes E11.9 ; Essential h ypertension I10 ; Chronic pain G89.29 and Morbid obesity E66.01 [facility] [address] [facility] [id number] [address] [place] [id number] Dec, [facility] [address] [facility] [id number] [address] [place] [id number] Dec, Bipolar I disorder, most rec ent episode (or current) mixed, moderate F31.62 [facility] [address] [facility] [id number] [address] [place] [id number] Dec, Bipolar I disorder, most rec ent episode (or current) mixed, moderate F31.62 [facility] [address] [facility] [id number] [address] [place] [address] Nov, Chronic pain G89.29 [facility] [address] [facility] [id number] [address] [place] [id number] Nov, Bipolar I disorder, most rec ent episode (or current) mixed, moderate F31.62 [facility] [address] [facility] [id number] [address] [place] [id number] Nov, [facility] [address] [facility] [id number] [address] [place] [id number] Nov, Bipolar I disorder, most rec ent episode (or current) mixed, moderate F31.62 [facility] [address] [facility] [id number] [address] [place] [id number] Nov, Bipolar I disorder, most rec ent episode (or current) mixed, moderate F31.62 [facility] [address] [facility] [id number] [address] [place] [id number] Nov, [facility] [address] [facility] [id number] [address] [place] [id number] Nov, [facility] [address] [facility] [id number] [address] [place] [address] Nov, [facility] [address] [facility] [id number] [address] [place] [id number] Oct, Chronic pain G89.29 [facility] [address] [facility] [id number] [address] [place] [id number] Oct, Bipolar I disorder, most rec ent episode (or current) mixed, moderate F31.62 [facility] [address] [facility] [id number] [address] [place] [id number] Oct, 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 [address] [facility] [id number] [address] [place] [address] Oct, [facility] [address] [facility] [id number] [address] [place] [address] Oct, Diabetes E11.9 [facility] [address] [facility] [id number] [address] [place] [id number] Oct, Bipolar I disorder, most rec ent episode (or current) mixed, moderate F31.62 [facility] [address] [facility] [id number] [address] [place] [address] Sep, Chronic pain G89.29 [facility] [address] [facility] [id number] [address] [place] [address] Sep, Chronic pain G89.29 [facility] [address] [id number] [address] [place] [address] Aug, Chronic pain G89.29 [facility] [address] [id number] [address] [place] [id number] Jul, [facility] [address] [facility] [id number] [address] [place] [address] Jul, Diabetes E11.9 [facility] [address] [id number] [address] [place] [address] Jul, Chronic pain G89.29 [facility] [address] [id number] [address] [place] [address] Jul, Bipolar I disorder, most rec ent episode (or current) mixed, moderate F31.62 [place] [facility] [address] [facility] [id number] [address] [place] [address] Jun, Bipolar I disorder, most rec ent episode (or current) mixed, moderate F31.62 [facility] [address] [facility] [id number] [address] [place] [id number] Jun, [facility] [address] [facility] [id number] [address] [place] [address] Jun, Bipolar I disorder, most rec ent episode (or current) mixed, moderate F31.62 [facility] [address] [facility] [id number] [address] [place] [id number] 30 May, 2016 Insomnia, unspecified type G 47.00 [facility] [address] [id number] [address] [place] [address] May, Bipolar I disorder, most rec ent episode (or current) mixed, moderate F31.62 [facility] [address] [facility] [id number] [address] [place] [id number] 14 May, 2016 [facility] [address] [facility] [id number] [address] [place] [address] May, Bipolar I disorder, most rec ent episode (or current) mixed, moderate F31.62 [place] [address] [facility] [id number] [address] [place] [address] May, Diabetes E11.9 and Essential hypertension I10 [facility] [address] [facility] [id number] [address] [place] [address] Apr, Chronic pain G89.29 [facility] [place] [address] [facility] [id number] [address] [place] [address] Apr, Bipolar I disorder, most rec ent episode (or current) mixed, moderate F31.62 [facility] [place] [address] [facility] [id number] [address] [place] [address] Apr, [facility] [address] [facility] [id number] [address] [place] [address] Apr, [facility] [address] [place] [id number] [address] [place] [address] Mar, Chronic pain G89.29 ; Headac he, unspecified headache type R51 ; Neuropathy G62.9 ; Pain of right hip joint M25.551 and Essential hypertension I10 [place] [address] [facility] [id number] [address] [place] [address] Mar, Chronic pain G89.29 [place] [address] [facility] [id number] [address] [place] [address] Mar, Bipolar I disorder, most rec ent episode (or current) mixed, moderate F31.62 [place] [address] [facility] [id number] [address] [place] [address] Feb, Bipolar I disorder, most rec ent episode (or current) mixed, moderate F31.62 and Insomnia, unspecified type G47.00 [facility] [address] [facility] [id number] [address] [place] [address] Feb, Chronic pain G89.29 [place] [address] [facility] [id number] [address] [place] [id number] Feb, Bipolar I disorder, most rec ent episode (or current) mixed, moderate F31.62 [facility] [address] [id number] [address] [place] [address] January, Bipolar I disorder, most rec ent episode (or current) mixed, moderate F31.62 [facility] [address] [id number] [address] [place] [address] January, Chronic pain G89.29 [facility] [address] [id number] [address] [place] [address] January, Chronic pain G89.29 and Esse ntial hypertension I10 [facility] [address] [id number] [address] [place] [address] January, Bipolar I disorder, most rec ent episode (or current) mixed, moderate F31.62 [facility] [address] [id number] [address] [place] [address] Dec, [facility] [address] [id number] [address] [place] [id number] Dec, [facility] [address] [id number] [address] [place] [address] Dec, [facility] [address] [facility] [id number] [address] [place] [address] Dec, [facility] [address] [id number] [address] [place] [address] Nov, Reactive airway disease J45. 909 [facility] [address] [id number] [address] [place] [address] Nov, [facility] [address] [id number] [address] [place] [address] Nov, [facility] [address] [id number] [address] [place] [address] Nov, [facility] [address] [id number] [address] [place] [address] Nov, [place] [address] [address] Nov, Onychomycosis B35.1 ; Hammer toe M20.40 ; [place] or callus L84 and DM neuro manif type II E11.49 [place] [address] [address] Nov, Chronic pain G89.29 ; Leukoc ytosis D72.829 and Diabetes E11.9 [place] [address] [address] Nov, [place] [address] [address] Oct, Bronchitis J40 [place] [address] [address] Oct, [place] [address] [address] Oct, [place] [address] [address] Oct, Mastoiditis, unspecified lat erality H70.90 and Type 2 diabetes mellitus with complication E11.8 [place] [address] [address] Sep, [place] [address] [address] Sep, Dysuria R30.0 ; Cough R05 ; Benign prostatic hyperplasia with lower urinary tract symptoms, unspecified morphology N40.1 ; Hypokalemia E87.6 and Eustachian tube dysfunction, unspecified laterality H69.80 [place] [address] [address] Sep, Moderate mixed bipolar I dis order F31.[address] [address] Sep, Hypokalemia E87.6 [facility] [address] [id number] [address] [place] [address] Sep, [facility] [address] [facility] [id number] [address] [place] [address] Sep, Upper respiratory tract infe ction, unspecified type J06.9 [facility] [address] [facility] [id number] [address] [place] [address] Aug, [facility] [address] [id number] [address] [place] [id number] Aug, Dysuria R30.0 [facility] [address] [facility] [id number] [address] [place] [address] Aug, [facility] [address] [facility] [id number] [address] [place] [address] Jul, [facility] [address] [facility] [id number] [address] [place] [address] Jul, [facility] [address] [facility] [id number] [address] [place] [address] Jul, [facility] [address] [facility] [id number] [address] [place] [address] Jul, [facility] [address] [facility] [id number] [address] [place] [address] Jun, [facility] [address] [id number] [address] [place] [address] Jun, [facility] [address] [facility] [id number] [address] [place] [address] Jun, [facility] [address] [facility] [id number] [address] [place] [address] May, [facility] [address] [facility] [id number] [address] [place] [address] May, Bipolar I disorder, most rec ent episode (or current) mixed, moderate 296.62 [facility] [address] [facility] [id number] [address] [place] [address] May, [facility] [address] [facility] [id number] [address] [place] [address] May, Bipolar I disorder, most rec ent episode (or current) mixed, moderate 296.62 and Major depressive disorder, recurrent episode, severe, specified as with psychotic behavior 296.34 [facility] [address] [facility] [id number] [address] [place] [address] May, Bipolar I disorder, most rec ent episode (or current) mixed, moderate 296.62 [facility] [address] [facility] [id number] [address] [place] [address] May, [facility] [address] [place] [id number] [address] [place] [address] Apr, [facility] [address] [place] [id number] [address] [place] [address] Apr, [facility] [address] [place] [id number] [address] [place] [address] Apr, Unspecified disorder of kidn ey and ureter 593.9 and Diabetes mellitus type [address], [address] [facility] [address] [place] [id number] [address] [place] [id number] Apr, [facility] [address] [facility] [id number] [address] [place] [id number] Apr, [facility] [address] [place] [id number] [address] [place] [address] Apr, [facility] [address] [facility] [id number] [address] [place] [address] Apr, [facility] [address] [place] [id number] [address] [place] [address] Apr, Diabetes mellitus type II, u ncontrolled 250.02 [facility] [address] [facility] [id number] [address] [place] [id number] Apr, [facility] [address] [place] [id number] [address] [place] [address] Mar, [facility] [address] [place] [id number] [address] [place] [address] Mar, [facility] [address] [place] [id number] [address] [place] [id number] Mar, [facility] [address] [place] [id number] [place] [address] Mar, Major depressive disorder, r ecurrent episode, severe, specified as with psychotic behavior 296.34 and Bipolar I disorder, most recent episode (or current) mixed, moderate 296.62 [facility] [address] [place] [id number] [place] [address] Mar, Diabetes 250.00 ; Anuria 788 .5 ; Nausea and vomiting 787.[address] [facility] [address] [place] [id number] [address] [place] [address] Mar, Diabetes 250.00 [facility] [address] [place] [id number] [address] [place] [address] Mar, [facility] [address] [place] [id number] [address] [place] [address] Mar, Diabetes 250.00 [facility] [address] [place] [id number] [address] [place] [address] Mar, [facility] [address] [place] [id number] [address] [place] [address] Mar, [facility] [address] [place] [id number] [address] [place] [phone] Mar, [facility] [address] [place] [id number] [address] [place] [id number] Mar, [facility] [address] [place] [id number] [address] [place] [id number] Mar, Bipolar I disorder, most rec ent episode (or current) mixed, moderate 296.62 and Major depressive disorder, recurrent episode, severe, specified as with psychotic behavior 296.[address] [address] Mar, Magnesium deficiency 275.2 ; Hypokalemia 276.8 ; Nausea & vomiting 787.01 and Diabetes mellitus type 2, uncontrolled 250.[address] [address] Feb, [address] [address] Feb, Bipolar I disorder, most rec ent episode (or current) mixed, moderate 296.[address] [address] Feb, Nausea and vomiting 787.01 ; Left elbow pain 719.42 ; Anuria 788.5 and Diabetes 250.[address] [address] Feb, [address] [address] Feb, Hypopotassemia 276.8 and Hyp okalemia 276.[address] [address] Feb, Hypopotassemia 276.8 and Hyp okalemia 276.[address] [address] Feb, Seborrheic keratoses 702.[address] [address] Feb, Hypopotassemia 276.8 and Low magnesium levels 275.[address] [address] January, [address] [address] January, [facility] [address] [id number] [address] [place] [address] January, [facility] [address] [id number] [address] [place] [id number] January, Scalp lesion 709.9 [facility] [address] [id number] [address] [place] [id number] January, [facility] [address] [id number] [address] [place] [id number] Dec, Tear of medial cartilage or meniscus of knee, current 836.0 and 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 [facility] [address] [id number] [address] [place] [address] Dec, [facility] [address] [id number] [address] [place] [address] Dec, 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 [address] [id number] [address] [place] [id number] Dec, [facility] [address] [id number] [place] [id number] Dec, [facility] [address] [id number] [address] [place] [id number] Nov, [facility] [address] [id number] [address] [place] [id number] Nov, [facility] [address] [id number] [address] [place] [id number] Nov, [facility] [address] [id number] [address] [place] [id number] Nov, [facility] [address] [id number] [address] [place] [id number] Nov, [facility] [address] [id number] [address] [place] [address], [place] [address] Nov, 2014 [facility] [address] [id number] [address] [place] [address], [place] [address] Nov, [facility] [address] [id number] [address] [place] [address], [place] [address] Nov, 2014 [facility] [address] [id number] [address] [place] [address], [place] [address] Nov, 2014 [facility] [address] [id number] [address] [place] [address], [place] [address] Nov, 2014 [facility] [address] [id number] [address] [place] [address], [place] [address] Nov, [facility] [address] [id number] [address] [place] [address], [place] [address] Nov, [facility] [address] [id number] [address] [place] [address], [place] [address] Oct, 2014 [facility] [address] [id number] [address] [place] [address], [place] [address] Oct, 2014 [facility] [address] [id number] [address] [place] [address], [place] [address] Oct, 2014 [facility] [address] [id number] [address] [place] [id number] Oct, 2014 [facility] [address] [id number] [address] [place] [id number] Oct, 2014 [facility] [address] [id number] [address] [place] [address], [place] [address] Oct, 2014 [facility] [address] [id number] [address] [place] [address], [place] [address] Oct, 2014 [facility] [address] [id number] [address] [place] [id number] Oct, 2014 [facility] [address] [id number] [address] [place] [id number] Oct, [facility] [address] [id number] [address] [place] [address], [place] [address] Sep, [facility] [address] [id number] [address] [place] [address], [place] [address] Sep, [facility] [address] [id number] [address] [place] [address], [place] [address] Sep, [facility] [address] [id number] [address] [place] [address], [place] [address] Sep, [facility] [address] [id number] [address] [place] [address], [place] [address] Sep, [facility] [address] [id number] [address] [place] [address], [place] [address] Sep, [facility] [address] [id number] [address] [place] [address], [place] [address] Sep, [facility] [address] [id number] [address] [place] [address], [place] [address] Sep, [facility] [address] [id number] [address] [place] [address], [place] [address] Sep, [facility] [address] [id number] [address] [place] [address], [place] [address] Sep, [facility] [address] [id number] [address] [place] [address], [place] [address] Sep, [facility] [address] [id number] [address] [place] [address], [place] [address] Sep, [facility] [address] [id number] [address] [place] [address], [place] [address] Sep, [facility] [address] [id number] [address] [place] [address], [place] [address] Sep, [facility] [address] [id number] [address] [place] [address], [place] [address] Sep, [facility] [address] [id number] [address] [place] [address], [place] [address] Sep, [facility] [address] [id number] [address] [place] [address], [place] [address] Aug, [facility] [address] [id number] [facility] [place] [address] Aug, [facility] [address] [id number] [address] [place] [address], [place] [address] Aug, [facility] [address] [id number] [address] [place] [address], [place] [address] Aug, [facility] [address] [id number] [address] [place] [address], [place] [address] Aug, [facility] [address] [id number] [address] [place] [address], [place] [address] Aug, [facility] [address] [id number] [address] [place] [address], [place] [address] Aug, [facility] [address] [id number] [address] [place] [address], [place] [address] Aug, [facility] [address] [id number] [address] [place] [address], [place] [address] Aug, [facility] [address] [id number] [address] [place] [address], [place] [address] Aug, [facility] [address] [id number] [address] [place] [address], [place] [address] Aug, [facility] [address] [place] [id number] Aug, [facility] [address] [id number] [address] [place] [address], [place] [address] Aug, [facility] [address] [id number] [address] [place] [address], [place] [address] Aug, [facility] [address] [id number] [address] [place] [address], [place] [address] Aug, [facility] [address] [id number] [address] [place] [address], [place] [address] Aug, [facility] [address] [id number] [address] [place] [address], [place] [address] Aug, [facility] [address] [id number] [address] [place] [address], [place] [address] Aug, [facility] [address] [id number] [address] [place] [address], [place] [address] Aug, [facility] [address] [id number] [address] [place] [address], [place] [address] Aug, [facility] [address] [id number] [address] [place] [address], [place] [address] Aug, [facility] [address] [id number] [address] [place] [address], [place] [address] Aug, [facility] [address] [id number] [address] [place] [address], [place] [address] Aug, [facility] [address] [id number] [address] [place] [address], [place] [address] Aug, [facility] [address] [id number] [address] [place] [address], [place] [address] Aug, [facility] [address] [id number] [address] [place] [address], [place] [address] Aug, [facility] [address] [id number] [address] [place] [address], [place] [address] Aug, [facility] [address] [id number] [address] [place] [address], [place] [address] Aug, [facility] [address] [id number] [address] [place] [address], [place] [address] Aug, [facility] [address] [id number] [address] [place] [address], [place] [address] Aug, [facility] [address] [id number] [address] [place] [address], [place] [address] Jul, [facility] [address] [id number] [address] [place] [address], [place] [address] Jul, [facility] [address] [id number] [address] [place] [address], [place] [address] Jul, [facility] [address] [id number] [address] [place] [address], [place] [address] Jul, [facility] [address] [id number] [address] [place] [address], [place] [address] Jul, [facility] [address] [id number] [address] [place] [address], [place] [address] Jul, [facility] [address] [id number] [address] [place] [address], [place] [address] Jul, [facility] [address] [id number] [address] [place] [address], [place] [address] Jul, [facility] [address] [id number] [address] [place] [address], [place] [address] Jul, [facility] [address] [id number] [address] [place] [address], [place] [address] Jul, [facility] [address] [id number] [address] [place] [address], [place] [address] Jun, [facility] [address] [id number] [address] [place] [address], [place] [address] Jun, [facility] [address] [id number] [address] [place] [address] 16 Jun, 2014 [facility] [address] [id number] [address] [place] [address], [place] [address] 16 Jun, 2014 [facility] [address] [id number] [address] [place] [address], [place] [address] 15 Jun, 2014 [facility] [address] [id number] [address] [place] [address], [place] [address] 15 Jun, 2014 [facility] [address] [id number] [address] [place] [address], [place] [address] 05 Jun, 2014 [facility] [address] [id number] [address] [place] [address], [place] [address] Jun, [facility] [address] [id number] [address] [place] [address], [place] [address] Jun, [facility] [address] [id number] [address] [place] [address], [place] [address] Jun, [facility] [address] [id number] [address] [place] [address], [place] [address] 29 May, 2013 [facility] [address] [id number] [address] [place] [address], [place] [address] 29 May, 2013 [facility] [address] [id number] [address] [place] [address], [place] [address] 26 May, 2013 [facility] [address] [id number] [address] [place] [address], [place] [address] 26 May, 2013 [facility] [address] [id number] [address] [place] [address], [place] [address] 17 May, 2013 [facility] [address] [id number] [address] [place] [address], [place] [address] 17 May, 2013 [facility] [address] [id number] [address] [place] [address], [place] [address] 15 May, 2013 [facility] [address] [id number] [address] [place] [address], [place] [address] 15 Sep, 2013 [facility] [address] [id number] [address] [place] [address], [place] [address] 15 Sep, 2013 [facility] [address] [id number] [address] [place] [address], [place] [address] 15 May, 2013 [facility] [address] [id number] [address] [place] [address], [place] [address] 10 May, 2013 [facility] [address] [id number] [address] [place] [address], [place] [address] May, [facility] [address] [id number] [facility] [place] [address] May, [facility] [address] [id number] [address] [place] [address], [place] [address] May, [facility] [address] [id number] [address] [place] [address], [place] [address] May, [facility] [address] [id number] [address] [place] [address], [place] [address] May, [facility] [address] [id number] [address] [place] [address], [place] [address] Apr, [facility] [address] [id number] [address] [place] [address], [place] [address] Apr, [facility] [address] [id number] [address] [place] [address], [place] [address] Apr, [facility] [address] [id number] [address] [place] [address], [place] [address] Apr, [facility] [address] [id number] [address] [place] [address], [place] [address] Apr, [facility] [address] [id number] [address] [place] [address], [place] [address] Apr, [facility] [address] [id number] [address] [place] [address], [place] [address] Apr, [facility] [address] [id number] [address] [place] [address], [place] [address] Apr, [facility] [address] [id number] [address] [place] [address], [place] [address] Apr, [facility] [address] [id number] [address] [place] [address], [place] [address] Apr, [facility] [address] [id number] [address] [place] [address], [place] [address] Apr, [facility] [address] [id number] [address] [place] [address], [place] [address] Apr, [facility] [address] [id number] [address] [place] [address], [place] [address] Apr, [facility] [address] [id number] [address] [place] [address], [place] [address] Apr, [facility] [address] [id number] [address] [place] [address], [place] [address] Apr, [facility] [address] [id number] [address] [place] [address], [place] [address] Mar, [facility] [address] [id number] [address] [place] [address], [place] [address] Mar, [facility] [address] [id number] [address] [place] [address], [place] [address] Mar, [facility] [address] [id number] [address] [place] [address], [place] [address] Mar, [facility] [address] [id number] [address] [place] [address], [place] [address] Mar, [facility] [address] [id number] [address] [place] [address], [place] [address] Mar, [facility] [address] [id number] [address] [place] [address], [place] [address] Mar, [facility] [address] [id number] [address] [place] [address], [place] [address] Mar, [facility] [address] [id number] [address] [place] [address], [place] [address] Mar, [facility] [address] [id number] [address] [place] [address], [place] [address] Mar, [facility] [address] [id number] [address] [place] [address], [place] [address] Mar, [facility] [address] [id number] [address] [place] [address], [place] [address] Mar, [facility] [address] [id number] [facility] [place] [address] Mar, 2013 [facility] [address] [id number] [facility] [place] [address] Mar, 2013 [facility] [address] [id number] [facility] [place] [address] Mar, 2013 [facility] [address] [id number] [facility] [place] [address] Mar, 2013 [facility] [address] [id number] [facility] [place] [address] Mar, 2013 [facility] [address] [id number] [address] [place] [address], [place] [address] Mar, [facility] [address] [id number] [address] [place] [address], [place] [address] Feb, [facility] [address] [id number] [address] [place] [address], [place] [address] Feb, [facility] [address] [id number] [address] [place] [address], [place] [address] Feb, [facility] [address] [id number] [address] [place] [address], [place] [address] Feb, [facility] [address] [id number] [address] [place] [address], [place] [address] Feb, [facility] [address] [id number] [address] [place] [address], [place] [address] Feb, [facility] [address] [id number] [address] [place] [address], [place] [address] Feb, [facility] [address] [id number] [address] [place] [address], [place] [address] Feb, [facility] [address] [id number] [address] [place] [address], [place] [address] Feb, [facility] [address] [id number] [address] [place] [address], [place] [address] Feb, [facility] [address] [id number] [facility] [place] [address] Feb, [facility] [address] [id number] [facility] [place] [address] Feb, [facility] [address] [id number] [facility] [place] [address] Feb, [facility] [address] [id number] [address] [place] [address], [place] [address] Feb, [facility] [address] [id number] [facility] [place] [address] January, [facility] [address] [id number] [address] [place] [address], [place] [address] January, [facility] [address] [id number] [address] [place] [address], [place] [address] January, [facility] [address] [id number] [address] [place] [address], [place] [address] January, [facility] [address] [id number] [address] [place] [address], [place] [address] January, [facility] [address] [id number] [address] [place] [address], [place] [address] January, [facility] [address] [id number] [address] [place] [address], [place] [address] January, [facility] [address] [id number] [address] [place] [address], [place] [address] January, [facility] [address] [id number] [address] [place] [address], [place] [address] January, [facility] [address] [id number] [address] [place] [address], [place] [address] January, [facility] [address] [id number] [facility] [place] [address] January, [facility] [address] [id number] [facility] [place] [address] January, [facility] [address] [id number] [address] [place] [address], [place] [address] January, [facility] [address] [id number] [address] [place] [address], [place] [address] January, [facility] [address] [id number] [address] [place] [address], [place] [address] Dec, [facility] [address] [id number] [address] [place] [address], [place] [address] Dec, [facility] [address] [id number] [address] [place] [address], [place] [address] Dec, [facility] [address] [id number] [address] [place] [address], [place] [address] Dec, [facility] [address] [id number] [address] [place] [address], [place] [address] Dec, [facility] [address] [id number] [address] [place] [address], [place] [address] Dec, [facility] [address] [id number] [address] [place] [address], [place] [address] Dec, [facility] [address] [id number] [address] [place] [address], [place] [address] Dec, [facility] [address] [id number] [address] [place] [address], [place] [address] Dec, [facility] [address] [id number] [address] [place] [address], [place] [address] Dec, [facility] [address] [id number] [address] [place] [address], [place] [address] Nov, [facility] [address] [id number] [address] [place] [address], [place] [address] Nov, [facility] [address] [id number] [address] [place] [address], [place] [address] Nov, [facility] [address] [id number] [facility] [place] [address] Nov, [facility] [address] [id number] [address] [place] [address], [place] [address] Nov, [facility] [address] [id number] [facility] [place] [address] Nov, [facility] [address] [id number] [address] [place] [address], [place] [address] Nov, [facility] [address] [id number] [address] [place] [address], [place] [address] Nov, [facility] [address] [id number] [address] [place] [address], [place] [address] Nov, [facility] [address] [id number] [address] [place] [address], [place] [address] Nov, [facility] [address] [id number] [address] [place] [address], [place] [address] Oct, [facility] [address] [id number] [address] [place] [address], [place] [address] Oct, [facility] [address] [id number] [address] [place] [address], [place] [address] Oct, [facility] [address] [id number] [address] [place] [address], [place] [address] Oct, [facility] [address] [id number] [address] [place] [address], [place] [address] Oct, [facility] [address] [id number] [address] [place] [address], [place] [address] Oct, [facility] [address] [id number] [address] [place] [address], [place] [address] 14 Oct, 2013 [facility] [address] [id number] [address] [place] [address], [place] [address] Oct, [facility] [address] [id number] [address] [place] [address], [place] [address] 05 Oct, 2013 [facility] [address] [id number] [address] [place] [address], [place] [address] Oct, [facility] [address] [id number] [address] [place] [address], [place] [address] Oct, [facility] [address] [id number] [address] [place] [address], [place] [address] Oct, [facility] [address] [id number] [address] [place] [address], [place] [address] Oct, [facility] [address] [id number] [address] [place] [address], [place] [address] Oct, [facility] [address] [id number] [address] [place] [address], [place] [address] Sep, [facility] [address] [id number] [address] [place] [address], [place] [address] Sep, [facility] [address] [id number] [address] [place] [address], [place] [address] Sep, [facility] [address] [id number] [address] [place] [address], [place] [address] Sep, [facility] [address] [id number] [address] [place] [address], [place] [address] Sep, [facility] [address] [id number] [address] [place] [address], [place] [address] Sep, [facility] [address] [id number] [address] [place] [address], [place] [address] Sep, [facility] [address] [id number] [address] [place] [address], [place] [address] Sep, [facility] [address] [id number] [address] [place] [address], [place] [address] Sep, [facility] [address] [id number] [address] [place] [address], [place] [address] Sep, [facility] [address] [id number] [address] [place] [address], [place] [address] Aug, [facility] [address] [id number] [address] [place] [address], [place] [address] Aug, [facility] [address] [id number] [address] [place] [address], [place] [address] Jul, [facility] [address] [id number] [address] [place] [address], [place] [address] Jul, [facility] [address] [id number] [address] [place] [address], [place] [address] Jul, [facility] [address] [id number] [address] [place] [address], [place] [address] Jul, [facility] [address] [id number] [address] [place] [address], [place] [address] Jul, [facility] [address] [id number] [address] [place] [address], [place] [address] Jul, [facility] [address] [id number] [address] [place] [address], [place] [address] Jul, [facility] [address] [id number] [address] [place] [address], [place] [address] Jul, [facility] [address] [id number] [address] [place] [address], [place] [address] Jul, [facility] [address] [id number] [address] [place] [address] Jul, [facility] [address] [id number] [address] [place] [address], [place] [address] Jul, [facility] [address] [id number] [address] [place] [address], [place] [address] Jul, [facility] [address] [id number] [address] [place] [address], [place] [address] Jul, [facility] [address] [id number] [address] [place] [address], [place] [address] 05 Jul, 2012 [facility] [address] [id number] [address] [place] [address], [place] [address] Jul, 2012 [facility] [address] [id number] [address] [place] [address], [place] [address] Jul, 2012 [facility] [address] [id number] [address] [place] [address], [place] [address] Jul, 2012 [facility] [address] [id number] [address] [place] [address], [place] [address] Jul, 2012 [facility] [address] [id number] [address] [place] [address], [place] [address] Jul, 2012 [facility] [address] [id number] [address] [place] [address], [place] [address] Jun, 2012 [facility] [address] [id number] [address] [place] [address], [place] [address] 16 Jun, 2012 [facility] [address] [id number] [address] [place] [address], [place] [address] Jun, 2012 [facility] [address] [id number] [address] [place] [address], [place] [address] Jun, 2012 [facility] [address] [id number] [address] [place] [address], [place] [address] 16 Jun, 2012 [facility] [address] [id number] [address] [place] [address], [place] [address] 16 Jun, 2012 [facility] [address] [id number] [address] [place] [id number] 10 Jun, 2012 [facility] [address] [id number] [address] [place] [address], [place] [address] 10 Jun, 2012 [facility] [address] [id number] [address] [place] [address], [place] [address] 09 Jun, 2012 [facility] [address] [id number] [address] [place] [id number] 09 Jun2012 [facility] [address] [id number] [address] [place] [address], [place] [address] Jun, [facility] [address] [id number] [address] [place] [address], [place] [address] May, 2012 [facility] [address] [id number] [address] [place] [address], [place] [address] 25 May, 2012 [facility] [address] [id number] [address] [place] [address], [place] [address] 19 May, 2012 [facility] [address] [id number] [address] [place] [address], [place] [address] 17 May, 2012 [facility] [address] [id number] [address] [place] [address], [place] [address] May, [facility] [address] [id number] [address] [place] [address], [place] [address] May, [facility] [address] [id number] [address] [place] [address], [place] [address] May, [facility] [address] [id number] [address] [place] [address], [place] [address] May, [facility] [address] [id number] [address] [place] [address], [place] [address] Apr, [facility] [address] [id number] [address] [place] [address], [place] [address] Apr, [facility] [address] [id number] [address] [place] [address], [place] [address] Apr, [facility] [address] [id number] [address] [place] [address], [place] [address] Apr, [facility] [address] [id number] [address] [place] [address], [place] [address] Apr, [facility] [address] [id number] [address] [place] [address], [place] [address] Mar, [facility] [address] [id number] [address] [place] [address], [place] [address] Mar, [facility] [address] [id number] [address] [place] [address], [place] [address] Mar, [facility] [address] [id number] [address] [place] [address], [place] [address] Mar, [facility] [address] [id number] [address] [place] [address], [place] [address] Mar, [facility] [address] [id number] [address] [place] [address], [place] [address] Mar, [facility] [address] [id number] [address] [place] [address], [place] [address] Mar, [facility] [address] [id number] [address] [place] [address], [place] [address] Mar, [facility] [address] [id number] [address] [place] [address], [place] [address] Feb, [facility] [address] [id number] [address] [place] [address], [place] [address] Feb, [facility] [address] [id number] [address] [place] [address], [place] [address] January, [facility] [address] [id number] [address] [place] [address], [place] [address] January, [facility] [address] [id number] [address] [place] [address], [place] [address] Dec, [facility] [address] [id number] [address] [place] [address], [place] [address] Dec, [facility] [address] [id number] [address] [place] [address], [place] [address] Nov, [facility] [address] [id number] [address] [place] [address], [place] [address] Nov, [facility] [address] [id number] [address] [place] [address], [place] [address] Nov, [facility] [address] [id number] [address] [place] [address], [place] [address] 14 Nov, 2012 [facility] [address] [id number] [address] [place] [address], [place] [address] Oct, [facility] [address] [id number] [address] [place] [address], [place] [address] Oct, [facility] [address] [id number] [address] [place] [address], [place] [address] Oct, [facility] [address] [id number] [address] [place] [address], [place] [address] Oct, [facility] [address] [id number] [address] [place] [address], [place] [address] 16 Oct, 2012 [facility] [address] [id number] [address] [place] [address], [place] [address] 14 Oct, 2012 [facility] [address] [id number] [address] [place] [address], [place] [address] 08 Oct, 2012 [facility] [address] [id number] [address] [place] [address], [place] [address] 07 Oct, 2012 [facility] [address] [id number] [address] [place] [address], [place] [address] 03 Oct, 2012 [facility] [address] [id number] [address] [place] [address], [place] [address] 30 Sep, 2012 [facility] [address] [id number] [address] [place] [address], [place] [address] Sep, [facility] [address] [id number] [address] [place] [address], [place] [address] Sep, [facility] [address] [id number] [address] [place] [address], [place] [address] Sep, [facility] [address] [id number] [address] [place] [address], [place] [address] 17 Sep, 2012 [facility] [address] [id number] [address] [place] [address], [place] [address] Sep, [facility] [address] [id number] [address] [place] [address], [place] [address] Sep, [facility] [address] [id number] [address] [place] [address], [place] [address] Sep, [facility] [address] [id number] [address] [place] [address], [place] [address] Aug, [facility] [address] [id number] [address] [place] [address], [place] [address] Aug, [facility] [address] [id number] [address] [place] [address], [place] [address] Aug, [facility] [address] [id number] [address] [place] [address], [place] [address] Aug, [facility] [address] [id number] [address] [place] [address], [place] [address] Aug, [facility] [address] [id number] [address] [place] [address], [place] [address] Aug, [facility] [address] [id number] [address] [place] [address], [place] [address] Aug, [facility] [address] [id number] [address] [place] [address], [place] [address] Aug, [facility] [address] [id number] [address] [place] [address], [place] [address] Jul, [facility] [address] [id number] [address] [place] [address], [place] [address] Jul, [facility] [address] [id number] [address] [place] [address], [place] [address] Jul, [facility] [address] [id number] [address] [place] [address], [place] [address] Jul, [facility] [address] [id number] [address] [place] [address], [place] [address] Jul, [facility] [address] [id number] [address] [place] [address], [place] [address] Jul, [facility] [address] [id number] [address] [place] [address], [place] [address] Jun, [facility] [address] [id number] [address] [place] [address], [place] [address] Jun, [facility] [address] [id number] [address] [place] [address], [place] [address] Jun, [facility] [address] [id number] [address] [place] [address], [place] [address] Jun, [facility] [address] [id number] [address] [place] [address], [place] [address] Jun, [facility] [address] [id number] [address] [place] [address], [place] [address] Jun, [facility] [address] [id number] [address] [place] [address], [place] [address] Jun, [facility] [address] [id number] [address] [place] [address], [place] [address] Jun, [facility] [address] [id number] [address] [place] [address], [place] [address] 10 Jun, 2012 [facility] [address] [id number] [address] [place] [address], [place] [address] 26 May, 2012 [facility] [address] [id number] [address] [place] [address], [place] [address] 24 May, 2012 [facility] [address] [id number] [address] [place] [address], [place] [address] 18 May, 2012 [facility] [address] [id number] [address] [place] [address], [place] [address] 30 Apr, 2012 [facility] [address] [id number] [address] [place] [address], [place] [address] Apr, [facility] [address] [id number] [address] [place] [address], [place] [address] Apr, [facility] [address] [id number] [address] [place] [address], [place] [address] Apr, [facility] [address] [id number] [address] [place] [address], [place] [address] Apr, [facility] [address] [id number] [address] [place] [address], [place] [address] Apr, [facility] [address] [id number] [address] [place] [address], [place] [address] Mar, [facility] [address] [id number] [address] [place] [address], [place] [address] Mar, [facility] [address] [id number] [address] [place] [address], [place] [address] Mar, [facility] [address] [id number] [address] [place] [address], [place] [address] Mar, [facility] [address] [id number] [address] [place] [address], [place] [address] Feb, [facility] [address] [id number] [address] [place] [address], [place] [address] Feb, [facility] [address] [id number] [address] [place] [address], [place] [address] Feb, [facility] [address] [id number] [address] [place] [address], [place] [address] Feb, [facility] [address] [id number] [address] [place] [address], [place] [address] Feb, [facility] [address] [id number] [address] [place] [address], [place] [address] January, [facility] [address] [id number] [address] [place] [address], [place] [address] January, [facility] [address] [id number] [address] [place] [address], [place] [address] January, [facility] [address] [id number] [address] [place] [address], [place] [address] January, [facility] [address] [id number] [address] [place] [address], [place] [address] January, [facility] [address] [id number] [address] [place] [address], [place] [address] January, [facility] [address] [id number] [address] [place] [address], [place] [address] Dec, [facility] [address] [id number] [address] [place] [address], [place] [address] Dec, [facility] [address] [id number] [address] [place] [address], [place] [address] Dec, [facility] [address] [id number] [address] [place] [address], [place] [address] Dec, [facility] [address] [id number] [address] [place] [address], [place] [address] Dec, [facility] [address] [id number] [address] [place] [address], [place] [address] Nov, [facility] [address] [id number] [address] [place] [address], [place] [address] Nov, [facility] [address] [id number] [address] [place] [address], [place] [address] Nov, [facility] [address] [id number] [address] [place] [address], [place] [address] Nov, [facility] [address] [id number] [address] [place] [address], [place] [address] Oct, [facility] [address] [id number] [address] [place] [address], [place] [address] Oct, [facility] [address] [id number] [address] [place] [address], [place] [address] 24 Oct, 2011 [facility] [address] [id number] [address] [place] [address], [place] [address] 13 Oct, 2011 [facility] [address] [id number] [address] [place] [address], [place] [address] Oct, [facility] [address] [id number] [address] [place] [address], [place] [address] Sep, [facility] [address] [id number] [address] [place] [address], [place] [address] Sep, [facility] [address] [id number] [address] [place] [address], [place] [address] Sep, [facility] [address] [id number] [address] [place] [address], [place] [address] Sep, [facility] [address] [id number] [address] [place] [address], [place] [address] Sep, [facility] [address] [id number] [address] [place] [address], [place] [address] Sep, [facility] [address] [id number] [address] [place] [address], [place] [address] Aug, [facility] [address] [id number] [address] [place] [address], [place] [address] Aug, [facility] [address] [id number] [address] [place] [address], [place] [address] Aug, [facility] [address] [id number] [address] [place] [address], [place] [address] Jul, [facility] [address] [id number] [address] [place] [address], [place] [address] Jul, [facility] [address] [id number] [address] [place] [address], [place] [address] Jul, [facility] [address] [id number] [address] [place] [address], [place] [address] Jul, [facility] [address] [id number] [address] [place] [address], [place] [address] Jun, [facility] [address] [id number] [address] [place] [address], [place] [address] 31 Jun, 2011 [facility] [address] [id number] [address] [place] [address], [place] [address] 18 Jun, 2011 [facility] [address] [id number] [address] [place] [address], [place] [address] 10 Jun, 2011 [facility] [address] [id number] [address] [place] [address], [place] [address] 10 Jun, 2011 [facility] [address] [id number] [address] [place] [address], [place] [address] 10 Jun, 2011 [facility] [address] [id number] [address] [place] [address], [place] [address] 11 Mar, 2011 [facility] [address] [id number] [address] [place] [address], [place] [address] 18 Dec, 2010 [facility] [address] [id number] [address] [place] [address], [place] [address] 11 Dec, 2010 [facility] [address] [id number] [address] [place] [address], [place] [address] 18 Nov, 2010 [facility] [address] [id number] [address] [place] [address], [place] [address] 16 Nov, 2010 [facility] [address] [id number] [address] [place] [address], [place] [address] Sep, [facility] [address] [id number] [address] [place] [address], [place] [address] 31 Aug, 2010 [facility] [address] [id number] [address] [place] [address], [place] [address] Aug, [facility] [address] [id number] [address] [place] [address], [place] [address] Aug, [facility] [address] [id number] [address] [place] [address], [place] [address] Aug, [facility] [address] [id number] [address] [place] [address], [place] [address] Aug, [facility] [address] [id number] [address] [place] [address], [place] [address] 14 Aug, 2010 [facility] [address] [id number] [address] [place] [address], [place] [address] 08 Aug, 2010 [facility] [address] [id number] [address] [place] [address], [place] [address] 08 Aug, 2010 [facility] [address] [id number] [address] [place] [address], [place] [address] 07 Aug, 2010 [facility] [address] [id number] [address] [place] [address], [place] [address] 06 Aug, 2010 [facility] [address] [id number] [address] [place] [address], [place] [address] Aug, [facility] [address] [id number] [address] [place] [address], [place] [address] Aug, [facility] [address] [id number] [address] [place] [address], [place] [address] Jul, [facility] [address] [id number] [address] [place] [address], [place] [address] 30 Jul, 2010 [facility] [address] [id number] [address] [place] [address], [place] [address] Jul, [facility] [address] [id number] [address] [place] [address], [place] [address] 17 Jul, 2010 [facility] [address] [id number] [address] [place] [address], [place] [address] Jul, [facility] [address] [id number] [address] [place] [address], [place] [address] Jul, [facility] [address] [id number] [address] [place] [address], [place] [address] Jun, [facility] [address] [id number] [address] [place] [address], [place] [address] Jun, [facility] [address] [id number] [address] [place] [address], [place] [address] Jun, [facility] [address] [id number] [address] [place] [address], [place] [address] 13 Jun, 2010 [facility] [address] [id number] [address] [place] [address], [place] [address] 16 Apr, 2010 [facility] [address] [id number] [address] [place] [address], [place] [address] Mar, [facility] [address] [id number] [address] [place] [address], [place] [address] Feb, [facility] [address] [id number] [address] [place] [address], [place] [address] January, [facility] [address] [id number] [address] [place] [address], [place] [address] 15 Dec, 2009 [facility] [address] [id number] [address] [place] [address], [place] [address] Nov, [facility] [address] [id number] [address] [place] [id number] Aug, [facility] [address] [id number] [address] [place] [address], [place] [address] Aug, [facility] [address] [id number] [address] [place] [id number] Aug, [facility] [address] [id number] [address] [place] [address] Jul, [facility] [address] [id number] [address] [place] [address] Jul, [facility] [address] [id number] [address] [place] [address] Jul, [facility] [address] [id number] [address] [place] [address] 30 Jun, 2009 [facility] [address] [id number] [address] [place] [address] 29 Jun, 2009 [facility] [address] [id number] [address] [place] [id number] Jun, [facility] [address] [id number] [address] [place] [address] Jun, [facility] [address] [id number] [place] [id number] Jun, [facility] [address] [facility] [id number] [address] [place] [id number] Jun, [facility] [address] [facility] [id number] [address] [place] [id number] Apr, [facility] [address] [facility] [id number] [address] [place] [address] Apr, [facility] [address] [facility] [id number] [address] [place] [id number] Feb, [facility] [address] [facility] [id number] [address] [place] [id number] January, [facility] [address] [facility] [id number] [address] [place] [id number] Dec, IMMUNIZATIONS No Known Immunizations SOCIAL HISTORY Never Assessed REASON FOR VISIT Controlled 12/17 PLAN OF CARE VITAL SIGNS MEDICATIONS Medication Instructions Dosage Frequency Start Date End Date Duration S tatus Percocet 10-325 MG Orally 4 times a day 1 tablet as needed 6h 2 3 Nov, 2018 28 days Active RESULTS No Results [...] History inability to urinate 09/16/15 Hospitalization History [facility] inpatient mental health ea rly 1999's Hospitalization History hyperkalemia 10/2017 Hospitalization History fluid in lung
--- OUTSIDE RECORDS SUMMARY | 2020-03-01 17:18 | XMS REPORT ---
Author Michele Fuentes Organization [facility] Address [address] [place] [address] Care Team Providers Care Field Support Technician Name Role Phone TOBY ROSELINE Unavailable PROBLEMS Type Condition ICD9-CM Code CPF96-VL Code Onset Dates Condition S tatus SNOMED Code Problem Cough R05 Active 23683414 Problem Benign prostatic hyperplasia with lower urinary tract symptoms, unspecified morphology N40.1 Active 24542 6007 Problem Eustachian tube dysfunction, unspecified laterality H69.80 Active 78091946 Problem Chronic pain G89.29 Active 7589660 1 Problem DM neuro manif type II E11.49 Active 63836704 Problem Diabetes E11.9 Active 63809781 Problem Leukocytosis D72.829 Active 3531923 06 Problem Falling R29.6 Active 036673655 Problem Pressure ulcer of other site, stage 3 L89.893 Active 198175672 Problem 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 Active 151370707 Problem Eye exam abnormal R93.8 Active 16 4434673 Problem Dysuria R30.0 Active 45806606 Problem Hypokalemia E87.6 Active 69959828 Problem Morbid obesity E66.01 Active 23836 6002 Problem Anxiety F41.9 Active 95398534 Problem Diabetic polyneuropathy associated with type 2 d iabetes mellitus E11.42 Active 52800255 Problem Essential hypertension I10 Active 16309490 Problem Bilateral primary osteoarthritis of knee M17.0 Active 343420890 Problem Polyneuropathy associated with underlying disease G63 Active 831262475 Problem Anemia of chronic illness D63.8 Acti ve 526106231 Problem Lymphocytosis D72.820 Active 622324 09 Problem Retinal edema H35.81 Active 307641 6 Problem Chronic lymphocytic leukemia C91.10 A ctive 06559702 Problem Bipolar disorder, in partial remission, most rec ent episode depressed F31.75 Active 92605273 Problem Pure hypercholesterolemia E78.00 Acti ve 265225062 Problem Primary osteoarthritis of right knee M17.11 Active 764944472097917 Problem Bipolar disorder F31.9 Active 137 00593 Problem Bipolar I disorder, most recent episode (or curr ent) mixed, moderate F31.62 Active 27882668 Problem Chronic diastolic (congestive) heart failure I50.3 2 Active 373634892 Problem Reactive airway disease J45.909 Active 842610132048 Problem Insomnia, unspecified type G47.00 Act sharon 204577238 Problem Other chronic pain G89.29 Active 8 7723993 Problem Other iron deficiency anemia D50.8 A ctive 68365343 Problem Mild cognitive impairment G31.84 Acti ve 030718124 Problem Skin cancer C44.90 Active 92982792 7 ALLERGIES No Information ENCOUNTERS Encounter Location Date Diagnosis [place] [address] [address] Jun, [place] [address] [place] [id number] [address] [place] [id number] Jun, [place] [address] [place] [id number] May, [place] [address] [place] [id number] [address] [place] [id number] Apr, Chronic pain G89.29 and Bipo lar disorder F31.9 [place] [address] [facility] [id number] [address] [place] [id number] Mar, Bipolar disorder F31.9 and C hronic pain G89.29 [place] [address] [facility] [id number] [address] [place] [id number] Feb, Bipolar disorder F31.9 [place] [address] [facility] [id number] [address] [place] [id number] Feb, Cellulitis of right upper ex tremity L03.113 and Skin abrasion T14.8XXA [place] [address] [facility] [id number] [address] [place] [id number] Feb, Bipolar disorder, in partial remission, most recent episode depressed F31.75 and Mild cognitive impairment G31.84 [place] [address] [id number] [address] [place] [id number] Feb, Chronic pain G89.29 [facility] [address] [id number] [address] [place] [id number] Feb, Bipolar disorder, in partial remission, most recent episode depressed F31.75 and Mild cognitive impairment G31.84 [facility] [address] [id number] [address] [place] [id number] January, Bipolar disorder, in partial remission, most recent episode depressed F31.75 and Mild cognitive impairment G31.84 [facility] [address] [id number] [address] [place] [id number] January, Chronic pain G89.29 and Bipo lar disorder F31.9 [facility] [address] [facility] [id number] [address] [place] [id number] January, Bipolar disorder, in partial remission, most recent episode depressed F31.75 and Mild cognitive impairment G31.84 [facility] [address] [id number] [address] [place] [id number] Dec, [facility] [address] [id number] [address] [place] [id number] Dec, Chronic pain G89.29 and Bipo lar disorder F31.9 [facility] [address] [id number] [address] [place] [id number] Dec, Edema of both lower extremit ies R60.0 [facility] [address] [id number] [address] [place] [id number] Dec, Bipolar disorder F31.9 [facility] [address] [facility] [id number] [address] [place] [id number] Dec, Bipolar disorder, in partial remission, most recent episode depressed F31.75 and Mild cognitive impairment G31.84 [facility] [address] [id number] [address] [place] [id number] Nov, [place] [address] [place] [id number] [address] [place] [id number] Nov, Chronic pain G89.29 [place] [address] [address] Nov, Bipolar disorder, in partial remission, most recent episode depressed F31.75 and Mild cognitive impairment G31.[address] [address] Nov, Bipolar disorder F31.[address] [address] 04 Nov, 2018 Encounter for Medicare [facility] wellness exam Z00.00 ; Polyneuropathy associated [...] unspecified morphology N40.1 and Essential hypertension I10 [place] [id number] [place] [id number] Oct, Chronic pain G89.29 [place] [id number] [place] [id number] Oct, Diabetes E11.9 [place] [address] [place] [id number] [address] [place] [id number] Oct, Bipolar I disorder, most rec ent episode (or current) mixed, moderate F31.62 and Mild cognitive impairment G31.84 [place] [id number] [place] [id number] Oct, Bipolar I disorder, most rec ent episode (or current) mixed, moderate F31.62 and Mild cognitive impairment G31.84 [place] [id number] [place] [id number] Sep, Bipolar I disorder, most rec ent episode (or current) mixed, moderate F31.62 and Mild cognitive impairment G31.84 [facility] [address] [facility] [id number] [address] [place] [id number] Sep, [facility] [address] [facility] [id number] [address] [place] [id number] Sep, Diabetes E11.9 ; Hypoxia R09 .02 ; Hyperglycemia R73.9 ; Therapeutic drug monitoring Z51.81 ; BMI 50.0-59.9, adult Z68.43 and Skin cancer C44.90 [place] [address] [facility] [id number] [address] [place] [id number] Sep, Chronic pain G89.29 [place] [address] [place] [id number] [address] [place] [id number] Sep, Bipolar I disorder, most rec ent episode (or current) mixed, moderate F31.62 [place] [id number] [facility] [id number] [address] [place] [id number] Sep, [place] [address] [facility] [id number] [address] [place] [id number] Sep, [facility] [address] [facility] [id number] [address] [place] [id number] Aug, Chronic pain G89.29 [facility] [address] [facility] [id number] [address] [place] [id number] Aug, Bipolar I disorder, most rec ent episode (or current) mixed, moderate F31.62 [facility] [address] [facility] [id number] [address] [place] [id number] Aug, Bipolar I disorder, most rec ent episode (or current) mixed, moderate F31.62 and Mild cognitive impairment G31.84 [place] [address] [facility] [id number] [address] [place] [id number] Jul, [facility] [address] [facility] [id number] [address] [place] [id number] Jul, Chronic pain G89.29 [facility] [address] [id number] [address] [place] [id number] Jul, Bipolar I disorder, most rec ent episode (or current) mixed, moderate F31.62 and Mild cognitive impairment G31.84 [facility] [address] [id number] [address] [place] [id number] Jul, Bipolar I disorder, most rec ent episode (or current) mixed, moderate F31.62 and MCI (mild cognitive impairment) G31.84 [facility] [address] [id number] [address] [place] [id number] Jul, [facility] [address] [id number] [address] [place] [id number] Jul, [facility] [address] [id number] [address] [place] [id number] Jul, Bipolar I disorder, most rec ent episode (or current) mixed, moderate F31.62 [facility] [address] [id number] [address] [place] [id number] Jul, Chronic pain G89.29 [facility] [address] [id number] [address] [place] [id number] Jun, Bipolar I disorder, most rec ent episode (or current) mixed, moderate F31.62 [facility] [address] [id number] [address] [place] [id number] Jun, Pre-procedure lab exam Z01.8 12 [facility] [address] [id number] [address] [place] [id number] Jun, [facility] [address] [id number] [place] [id number] Jun, [facility] [address] [id number] [address] [place] [id number] Jun, [facility] [address] [id number] [address] [place] [id number] Jun, Forgetfulness R68.89 ; Pre-s yncope R55 ; Localized edema R60.0 ; Other iron deficiency anemia D50.8 and BMI 50.0-59.9, adult Z68.43 [place] [address] [place] [id number] [address] [place] [id number] Jun, Chronic pain G89.29 [place] [address] [address] Jun, Chronic pain G89.29 [place] [address] [address] Jun, Bipolar I disorder, most rec ent episode (or current) mixed, moderate F31.62 [place] [address] [place] [id number] [place] [id number] May, Chronic pain G89.29 [place] [address] [address] Apr, [place] [address] [address] Apr, Chronic pain G89.29 [place] [address] [place] [id number] [place] [id number] Apr, Primary osteoarthritis of ri ght knee M17.11 [place] [address] [address] Mar, [place] [address] [place] [id number] [place] [id number] Mar, BMI 50.0-59.9, adult Z68.43 and Bipolar disorder, in partial remission, most recent episode depressed F31.75 [place] [address] [place] [id number] [address] [place] [id number] Mar, Diabetes E11.9 ; Pure hyperc holesterolemia E78.00 ; Essential hypertension I10 ; Nausea with vomiting, unspecified R11.2 and Headache, unspecified headache type R51 [facility] [address] [facility] [id number] [address] [place] [id number] Mar, Bipolar I disorder, most rec ent episode (or current) mixed, moderate F31.62 [facility] [address] [facility] [id number] [address] [place] [id number] Mar, Bipolar I disorder, most rec ent episode (or current) mixed, moderate F31.62 [place] [address] [facility] [id number] [address] [place] [id number] Mar, Chronic pain G89.29 [place] [address] [facility] [id number] [address] [place] [id number] Mar, Bipolar I disorder, most rec ent episode (or current) mixed, moderate F31.62 [place] [address] [facility] [id number] [address] [place] [id number] Feb, Bipolar I disorder, most rec ent episode (or current) mixed, moderate F31.62 [place] [address] [facility] [id number] [address] [place] [id number] Feb, Chronic pain G89.29 [place] [address] [facility] [id number] [address] [place] [id number] Feb, Decubitus ulcer of right josselin t, stage 3 L89.893 and BMI 50.0-59.9, adult Z68.43 [place] [address] [facility] [id number] [address] [place] [id number] Feb, Bipolar I disorder, most rec ent episode (or current) mixed, moderate F31.62 [place] [address] [facility] [id number] [address] [place] [id number] Feb, [facility] [address] [facility] [id number] [address] [place] [id number] January, [facility] [address] [facility] [id number] [address] [place] [id number] January, Chronic pain G89.29 [facility] [address] [facility] [id number] [address] [place] [id number] January, Bipolar I disorder, most rec ent episode (or current) mixed, moderate F31.62 [facility] [address] [facility] [id number] [address] [place] [id number] January, Bipolar I disorder, most rec ent episode (or current) mixed, moderate F31.62 [place] [address] [place] [id number] [address] [place] [id number] Dec, Bipolar I disorder, most rec ent episode (or current) mixed, moderate F31.62 and BMI 50.0-59.9, adult Z68.43 [place] [address] [place] [id number] [place] [id number] Dec, Bipolar I disorder, most rec ent episode (or current) mixed, moderate F31.62 [place] [address] [place] [id number] [address] [place] [id number] Dec, Chronic pain G89.29 [place] [address] [place] [id number] [address] [place] [id number] Dec, DM neuro manif type II E11.4 9 ; Right flank pain R10.9 ; 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 ; Encounter for medication monitoring Z51.81 and BMI 50.0-59.9, adult Z68.43 [place] [address] [place] [id number] [address] [place] [id number] Dec, Bipolar I disorder, most rec ent episode (or current) mixed, moderate F31.62 [place] [address] [place] [id number] [address] [place] [id number] Nov, Bipolar I disorder, most rec ent episode (or current) mixed, moderate F31.62 [place] [address] [place] [id number] [address] [place] [id number] Nov, Chronic pain G89.29 [place] [address] [place] [id number] [place] [id number] Nov, Bipolar I disorder, most rec ent episode (or current) mixed, moderate F31.62 [place] [address] [address] Nov, Hypokalemia E87.6 [place] [address] [address] Nov, Bipolar I disorder, most rec ent episode (or current) mixed, moderate F31.62 [place] [address] [address] Oct, Chronic pain G89.29 [place] [address] [address] Oct, BMI 50.0-59.9, adult Z68.43 and Bipolar I disorder, most recent episode (or current) mixed, moderate F31.62 [place] [address] [address] Oct, Bipolar I disorder, most rec ent episode (or current) mixed, moderate F31.62 [place] [address] [address] Oct, [place] [address] [address] Oct, Hypokalemia E87.6 [place] [address] [address] Oct, DM neuro manif type II E11.4 9 [place] [address] [address] Oct, Bipolar I disorder, most rec ent episode (or current) mixed, moderate F31.62 [place] [address] [address] Oct, Bipolar I disorder, most rec ent episode (or current) mixed, moderate F31.62 [place] [address] [address] 14 Oct, 2017 Hyperkalemia E87.5 ; Falling R29.6 ; BMI 50.0-59.9, adult Z68.43 and Acute left ankle pain M25.572 [place] [address] [address] 08 Oct, 2017 DM neuro manif type II E11.4 9 [place] [address] [address] Oct, [place] [address] [address] Sep, Chronic pain G89.29 [place] [address] [address] Sep, [place] [address] [address] Sep, Bilateral primary osteoarthr itis of knee M17.0 [place] [address] [address] Sep, Generalized edema R60.1 [place] [address] [address] 16 Sep, 2017 Bipolar I disorder, most rec ent episode (or current) mixed, moderate F31.62 [place] [address] [address] 15 Sep, 2017 Hypoxia R09.02 ; Other hyper volemia E87.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 ; Anemia of chronic illness D63.8 and BMI 50.0- 59.9, adult Z68.43 [place] [address] [address] Sep, [place] [id number] [place] [id number] Sep, Bipolar I disorder, most rec ent episode (or current) mixed, moderate F31.62 [facility] [address] [facility] [id number] [address] [place] [id number] Aug, Chronic pain G89.29 [facility] [address] [facility] [id number] [address] [place] [id number] Aug, Generalized edema R60.1 [facility] [address] [facility] [id number] [address] [place] [id number] 18 Aug, 2017 [facility] [address] [facility] [id number] [address] [place] [id number] 18 Aug, 2017 [facility] [address] [facility] [id number] [address] [place] [id number] 14 Aug, 2017 Bipolar I disorder, most rec ent episode (or current) mixed, moderate F31.62 [facility] [address] [facility] [id number] [address] [place] [id number] 07 Aug, 2017 Bipolar I disorder, most rec ent episode (or current) mixed, moderate F31.62 [facility] [address] [facility] [id number] [address] [place] [id number] 04 Aug, 2017 Chronic pain G89.29 [facility] [address] [facility] [id number] [address] [place] [id number] 30 Jul, 2017 Bipolar I disorder, most rec ent episode (or current) mixed, moderate F31.62 [facility] [address] [id number] [address] [place] [address] Jul, Bipolar I disorder, most rec ent episode (or current) mixed, moderate F31.62 and BMI 60.0-69.9, adult Z68.44 [facility] [address] [facility] [id number] [address] [place] [id number] 16 Jul, 2017 Bipolar I disorder, most rec ent episode (or current) mixed, moderate F31.62 [facility] [address] [facility] [id number] [address] [place] [id number] Jul, Chronic pain G89.29 [facility] [address] [facility] [id number] [address] [place] [id number] Jul, Bipolar I disorder, most rec ent episode (or current) mixed, moderate F31.62 [facility] [address] [facility] [id number] [address] [place] [id number] Jun, Polyneuropathy associated wi th underlying disease G63 and Diabetes E11.9 [facility] [address] [facility] [id number] [address] [place] [id number] 16 Jun, 2017 Bipolar I disorder, most rec ent episode (or current) mixed, moderate F31.62 [facility] [address] [facility] [id number] [address] [place] [id number] Jun, Chronic pain G89.29 [place] [address] [place] [id number] [address] [place] [id number] May, Bipolar I disorder, most rec ent episode (or current) mixed, moderate F31.62 [place] [id number] [facility] [id number] [address] [place] [id number] May, Bipolar I disorder, most rec ent episode (or current) mixed, moderate F31.62 [place] [id number] [facility] [id number] [address] [place] [id number] May, Diabetic polyneuropathy asso ciated with type 2 diabetes mellitus E11.42 [facility] [address] [facility] [id number] [address] [place] [id number] 18 May, 2017 Bipolar I disorder, most rec ent episode (or current) mixed, moderate F31.62 [place] [address] [facility] [id number] [address] [place] [id number] 13 May, 2017 Bipolar I disorder, most rec ent episode (or current) mixed, moderate F31.62 [place] [address] [facility] [id number] [address] [place] [id number] May, Chronic pain G89.29 [facility] [address] [id number] [address] [place] [id number] Apr, Bipolar I disorder, most rec ent episode (or current) mixed, moderate F31.62 [facility] [address] [id number] [address] [place] [id number] Apr, [facility] [address] [id number] [address] [place] [id number] Apr, Chronic pain G89.29 and DM n euro manif type II E11.49 [facility] [address] [id number] [address] [place] [id number] Apr, [facility] [address] [id number] [address] [place] [id number] Apr, Bipolar I disorder, most rec ent episode (or current) mixed, moderate F31.62 [facility] [address] [facility] [id number] [address] [place] [id number] Apr, Chronic pain G89.29 [facility] [address] [id number] [address] [place] [id number] Apr, Iliotibial band syndrome, le ft M76.32 [facility] [address] [facility] [id number] [address] [place] [id number] Apr, Bipolar I disorder, most rec ent episode (or current) mixed, moderate F31.62 [facility] [address] [id number] [address] [place] [id number] Mar, Bipolar I disorder, most rec ent episode (or current) mixed, moderate F31.62 [facility] [address] [facility] [id number] [address] [place] [id number] Mar, Bipolar I disorder, most rec ent episode (or current) mixed, moderate F31.62 [facility] [address] [facility] [id number] [address] [place] [id number] Mar, [facility] [address] [facility] [id number] [address] [place] [id number] Mar, Bipolar I disorder, most rec ent episode (or current) mixed, moderate F31.62 [facility] [address] [facility] [id number] [address] [place] [id number] Mar, Chronic pain G89.29 [facility] [address] [facility] [id number] [address] [place] [id number] Mar, Bipolar I disorder, most rec ent episode (or current) mixed, moderate F31.62 [facility] [address] [facility] [id number] [address] [place] [id number] Mar, Bipolar I disorder, most rec ent episode (or current) mixed, moderate F31.62 [facility] [address] [facility] [id number] [address] [place] [id number] Mar, Acute pain of left knee M25. 562 ; Left hip pain M25.552 ; Generalized edema R60.1 and Tongue swelling R22.0 [facility] [address] [facility] [id number] [address] [place] [id number] Mar, [facility] [address] [facility] [id number] [address] [place] [id number] Feb, Chronic pain G89.29 [facility] [address] [facility] [id number] [address] [place] [id number] Feb, Diabetes E11.9 [facility] [address] [facility] [id number] [address] [place] [id number] January, Chronic pain G89.29 [facility] [address] [facility] [id number] [address] [place] [id number] January, [facility] [address] [facility] [id number] [address] [place] [id number] January, Bipolar I disorder, most rec ent episode (or current) mixed, moderate F31.62 [facility] [address] [facility] [id number] [address] [place] [id number] Dec, Bipolar I disorder, most rec ent episode (or current) mixed, moderate F31.62 [facility] [address] [id number] [address] [place] [id number] Dec, Chronic pain G89.29 [facility] [address] [facility] [id number] [address] [place] [id number] Dec, Bipolar I disorder, most rec ent episode (or current) mixed, moderate F31.62 [facility] [address] [facility] [id number] [address] [place] [id number] Dec, Diabetes E11.9 ; Essential h ypertension I10 ; Chronic pain G89.29 and Morbid obesity E66.01 [facility] [address] [facility] [id number] [address] [place] [id number] Dec, [facility] [address] [facility] [id number] [address] [place] [id number] Dec, Bipolar I disorder, most rec ent episode (or current) mixed, moderate F31.62 [facility] [address] [facility] [id number] [address] [place] [id number] Dec, Bipolar I disorder, most rec ent episode (or current) mixed, moderate F31.62 [facility] [address] [facility] [id number] [address] [place] [id number] Nov, Chronic pain G89.29 [facility] [address] [facility] [id number] [address] [place] [id number] Nov, Bipolar I disorder, most rec ent episode (or current) mixed, moderate F31.62 [facility] [address] [facility] [id number] [address] [place] [id number] Nov, [facility] [address] [facility] [id number] [address] [place] [id number] Nov, Bipolar I disorder, most rec ent episode (or current) mixed, moderate F31.62 [facility] [address] [facility] [id number] [address] [place] [id number] Nov, Bipolar I disorder, most rec ent episode (or current) mixed, moderate F31.62 [facility] [address] [facility] [id number] [address] [place] [id number] Nov, [facility] [address] [facility] [id number] [address] [place] [id number] Nov, [facility] [address] [place] [id number] [address] [place] [id number] Nov, [facility] [address] [place] [id number] [address] [place] [id number] Oct, Chronic pain G89.29 [facility] [address] [place] [id number] [place] [id number] Oct, Bipolar I disorder, most rec ent episode (or current) mixed, moderate F31.62 [facility] [address] [place] [id number] [address] [place] [id number] Oct, [facility] [address] [place] [id number] [place] [id number] Oct, Chronic pain G89.29 ; Diabet es E11.9 ; Anxiety F41.9 and 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 [facility] [address] [place] [id number] [address] [place] [id number] Oct, [facility] [address] [place] [id number] [address] [place] [id number] Oct, Diabetes E11.9 [facility] [address] [place] [id number] [address] [place] [id number] Oct, Bipolar I disorder, most rec ent episode (or current) mixed, moderate F31.62 [facility] [address] [place] [id number] [address] [place] [id number] Sep, Chronic pain G89.29 [facility] [address] [place] [id number] [address] [place] [id number] Sep, Chronic pain G89.29 [facility] [address] [id number] [address] [place] [id number] Aug, Chronic pain G89.29 [facility] [address] [id number] [address] [place] [id number] Jul, [facility] [address] [facility] [id number] [address] [place] [id number] Jul, Diabetes E11.9 [facility] [address] [id number] [address] [place] [id number] Jul, Chronic pain G89.29 [facility] [address] [id number] [address] [place] [id number] Jul, Bipolar I disorder, most rec ent episode (or current) mixed, moderate F31.62 [facility] [address] [facility] [id number] [address] [place] [id number] Jun, Bipolar I disorder, most rec ent episode (or current) mixed, moderate F31.62 [facility] [address] [facility] [id number] [address] [place] [id number] Jun, [facility] [address] [facility] [id number] [address] [place] [id number] Jun, Bipolar I disorder, most rec ent episode (or current) mixed, moderate F31.62 [facility] [address] [facility] [id number] [address] [place] [id number] 30 May, 2016 Insomnia, unspecified type G 47.00 [facility] [address] [id number] [address] [place] [id number] May, Bipolar I disorder, most rec ent episode (or current) mixed, moderate F31.62 [facility] [address] [facility] [id number] [address] [place] [id number] 14 May, 2016 [facility] [address] [facility] [id number] [address] [place] [id number] May, Bipolar I disorder, most rec ent episode (or current) mixed, moderate F31.62 [facility] [address] [facility] [id number] [address] [place] [id number] May, Diabetes E11.9 and Essential hypertension I10 [facility] [address] [facility] [id number] [address] [place] [id number] Apr, Chronic pain G89.29 [place] [address] [place] [id number] [address] [place] [id number] Apr, Bipolar I disorder, most rec ent episode (or current) mixed, moderate F31.62 [place] [address] [facility] [id number] [address] [place] [id number] Apr, [place] [address] [place] [id number] [address] [place] [id number] Apr, [place] [address] [place] [id number] [address] [place] [id number] Mar, Chronic pain G89.29 ; Headac he, unspecified headache type R51 ; Neuropathy G62.9 ; Pain of right hip joint M25.551 and Essential hypertension I10 [place] [address] [facility] [id number] [address] [place] [id number] Mar, Chronic pain G89.29 [place] [address] [facility] [id number] [address] [place] [id number] Mar, Bipolar I disorder, most rec ent episode (or current) mixed, moderate F31.62 [place] [address] [facility] [id number] [address] [place] [id number] Feb, Bipolar I disorder, most rec ent episode (or current) mixed, moderate F31.62 and Insomnia, unspecified type G47.00 [place] [address] [facility] [id number] [address] [place] [id number] Feb, Chronic pain G89.29 [place] [address] [facility] [id number] [address] [place] [id number] Feb, Bipolar I disorder, most rec ent episode (or current) mixed, moderate F31.62 [facility] [address] [id number] [address] [place] [id number] January, Bipolar I disorder, most rec ent episode (or current) mixed, moderate F31.62 [facility] [address] [id number] [address] [place] [id number] January, Chronic pain G89.29 [facility] [address] [id number] [address] [place] [id number] January, Chronic pain G89.29 and Esse ntial hypertension I10 [facility] [address] [id number] [address] [place] [id number] January, Bipolar I disorder, most rec ent episode (or current) mixed, moderate F31.62 [facility] [address] [id number] [address] [place] [id number] Dec, [facility] [address] [id number] [address] [place] [id number] Dec, [facility] [address] [id number] [address] [place] [id number] Dec, [facility] [address] [id number] [address] [place] [id number] Dec, [facility] [address] [id number] [address] [place] [id number] Nov, Reactive airway disease J45. 909 [facility] [address] [id number] [address] [place] [id number] Nov, [facility] [address] [id number] [address] [place] [id number] Nov, [facility] [address] [id number] [address] [place] [id number] Nov, [facility] [address] [id number] [address] [place] [id number] Nov, [place] [id number] [place] [id number] Nov, Onychomycosis B35.1 ; Hammer toe M20.40 ; [place] or callus L84 and DM neuro manif type II E11.49 [place] [address] [address] Nov, Chronic pain G89.29 ; Leukoc ytosis D72.829 and Diabetes E11.9 [place] [address] [address] Nov, [place] [address] [id number] Oct, Bronchitis J40 [place] [address] [id number] Oct, [place] [address] [id number] Oct, [place] [address] [address] Oct, Mastoiditis, unspecified lat erality H70.90 and Type 2 diabetes mellitus with complication E11.8 [place] [address] [address] Sep, [address] [id number] Sep, Dysuria R30.0 ; Cough R05 ; Benign prostatic hyperplasia with lower urinary tract symptoms, unspecified morphology N40.1 ; Hypokalemia E87.6 and Eustachian tube dysfunction, unspecified laterality H69.[address] [id number] Sep, Moderate mixed bipolar I dis order F31.[address] [id number] Sep, Hypokalemia E87.6 [facility] [address] [id number] [address] [place] [id number] Sep, [facility] [address] [facility] [id number] [address] [place] [id number] Sep, Upper respiratory tract infe ction, unspecified type J06.9 [facility] [address] [facility] [id number] [address] [place] [id number] Aug, [facility] [address] [id number] [address] [place] [id number] Aug, Dysuria R30.0 [facility] [address] [facility] [id number] [address] [place] [id number] Aug, [facility] [address] [facility] [id number] [address] [place] [id number] Jul, [facility] [address] [facility] [id number] [address] [place] [id number] Jul, [facility] [address] [facility] [id number] [address] [place] [id number] Jul, [facility] [address] [facility] [id number] [address] [place] [id number] Jul, [facility] [address] [facility] [id number] [address] [place] [id number] Jun, [facility] [address] [facility] [id number] [address] [place] [id number] Jun, [facility] [address] [id number] [address] [place] [id number] Jun, [facility] [address] [facility] [id number] [address] [place] [id number] May, [facility] [address] [facility] [id number] [address] [place] [id number] May, Bipolar I disorder, most rec ent episode (or current) mixed, moderate 296.62 [facility] [address] [facility] [id number] [address] [place] [id number] May, [facility] [address] [id number] [address] [place] [id number] May, Bipolar I disorder, most rec ent episode (or current) mixed, moderate 296.62 and Major depressive disorder, recurrent episode, severe, specified as with psychotic behavior 296.34 [facility] [address] [facility] [id number] [address] [place] [id number] May, Bipolar I disorder, most rec ent episode (or current) mixed, moderate 296.62 [facility] [address] [facility] [id number] [address] [place] [id number] May, [facility] [address] [place] [id number] [address] [place] [id number] Apr, [facility] [address] [facility] [id number] [address] [place] [id number] Apr, [facility] [address] [place] [id number] [address] [place] [id number] Apr, Unspecified disorder of kidn ey and ureter 593.9 and Diabetes mellitus type 2, uncontrolled 250.02 [facility] [address] [place] [id number] [address] [place] [id number] Apr, [facility] [address] [facility] [id number] [address] [place] [id number] Apr, [facility] [address] [facility] [id number] [address] [place] [id number] Apr, [facility] [address] [facility] [id number] [address] [place] [id number] Apr, [facility] [address] [facility] [id number] [address] [place] [id number] Apr, Diabetes mellitus type II, u ncontrolled 250.02 [facility] [address] [facility] [id number] [address] [place] [id number] Apr, [facility] [address] [facility] [id number] [address] [place] [id number] Mar, [facility] [address] [facility] [id number] [address] [place] [id number] Mar, [facility] [address] [facility] [id number] [address] [place] [id number] Mar, [facility] [address] [facility] [id number] [address] [place] [id number] Mar, Major depressive disorder, r ecurrent episode, severe, specified as with psychotic behavior 296.34 and Bipolar I disorder, most recent episode (or current) mixed, moderate 296.62 [facility] [address] [place] [id number] [address] [place] [id number] Mar, Diabetes 250.00 ; Anuria 788 .5 ; Nausea and vomiting 787.01 and Diarrhea 787.91 [facility] [address] [facility] [id number] [address] [place] [id number] Mar, Diabetes 250.00 [facility] [address] [facility] [id number] [address] [place] [id number] Mar, [facility] [address] [facility] [id number] [address] [place] [id number] Mar, Diabetes 250.00 [facility] [address] [facility] [id number] [address] [place] [id number] Mar, [facility] [address] [facility] [id number] [address] [place] [id number] Mar, [facility] [address] [facility] [id number] [address] [place] [id number] Mar, [facility] [address] [facility] [id number] [address] [place] [id number] Mar, [facility] [address] [facility] [id number] [address] [place] [id number] Mar, Bipolar I disorder, most rec ent episode (or current) mixed, moderate 296.62 and Major depressive disorder, recurrent episode, severe, specified as with psychotic behavior 296.[address] [address] Mar, Magnesium deficiency 275.2 ; Hypokalemia 276.8 ; Nausea & vomiting 787.01 and Diabetes mellitus type 2, uncontrolled 250.[address] [address] Feb, [address] [address] Feb, Bipolar I disorder, most rec ent episode (or current) mixed, moderate 296.[address] [id number] Feb, Nausea and vomiting 787.01 ; Left elbow pain 719.42 ; Anuria 788.5 and Diabetes 250.[address] [address] Feb, [address] [address] Feb, Hypopotassemia 276.8 and Hyp okalemia 276.[address] [id number] Feb, Hypopotassemia 276.8 and Hyp okalemia 276.[address] [address] Feb, Seborrheic keratoses 702.[address] [address] Feb, Hypopotassemia 276.8 and Low magnesium levels 275.[address] [address] January, [address] [id number] January, [facility] [address] [id number] [address] [place] [id number] January, [facility] [address] [id number] [address] [place] [id number] January, Scalp lesion 709.9 [facility] [address] [id number] [address] [place] [id number] January, [facility] [address] [id number] [address] [place] [id number] Dec, Tear of medial cartilage or meniscus of knee, current 836.0 and 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 [facility] [address] [id number] [address] [place] [id number] Dec, [facility] [address] [id number] [address] [place] [id number] Dec, [facility] [address] [id number] [address] [place] [id number] Dec, Squamous cell carcinoma, 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 [facility] [address] [id number] [address] [place] [id number] Dec, [facility] [address] [id number] [address] [place] [id number] Dec, [facility] [address] [id number] [address] [place] [id number] Nov, [facility] [address] [id number] [address] [place] [id number] Nov, [facility] [address] [id number] [address] [place] [id number] Nov, [facility] [address] [id number] [address] [place] [id number] Nov, [facility] [address] [id number] [address] [place] [id number] Nov, [facility] [address] [id number] [address] [place] [address], [place] [address] 09 Nov, 2014 [facility] [address] [id number] [address] [place] [address], [place] [address] Nov, 2014 [facility] [address] [id number] [address] [place] [address], [place] [address] Nov, 2014 [facility] [address] [id number] [address] [place] [address], [place] [address] Nov, 2014 [facility] [address] [id number] [address] [place] [address], [place] [address] Nov, 2014 [facility] [address] [id number] [address] [place] [address], [place] [id number] Nov, 2014 [facility] [address] [id number] [address] [place] [address], [place] [address] Nov, 2014 [facility] [address] [id number] [address] [place] [address], [place] [address] Oct, 2014 [facility] [address] [id number] [address] [place] [address], [place] [address] Oct, 2014 [facility] [address] [id number] [address] [place] [address], [place] [address] Oct, 2014 [facility] [address] [id number] [address] [place] [address], [place] [address] Oct, 2014 [facility] [address] [id number] [address] [place] [address], [place] [address] Oct, 2014 [facility] [address] [id number] [address] [place] [address], [place] [address] Oct, 2014 [facility] [address] [id number] [address] [place] [address], [place] [address] Oct, 2014 [facility] [address] [id number] [address] [place] [address], [place] [address] Oct, 2014 [facility] [address] [id number] [address] [place] [address], [place] [address] Oct, [facility] [address] [id number] [address] [place] [address], [place] [address] Sep, [facility] [address] [id number] [address] [place] [address], [place] [address] Sep, [facility] [address] [id number] [address] [place] [address], [place] [address] Sep, [facility] [address] [id number] [address] [place] [address], [place] [address] Sep, [facility] [address] [id number] [address] [place] [address], [place] [address] Sep, [facility] [address] [id number] [address] [place] [address], [place] [address] Sep, [facility] [address] [id number] [address] [place] [address], [place] [address] Sep, [facility] [address] [id number] [address] [place] [address], [place] [address] Sep, [facility] [address] [id number] [address] [place] [address], [place] [address] Sep, [facility] [address] [id number] [address] [place] [address], [place] [address] Sep, [facility] [address] [id number] [address] [place] [address], [place] [address] Sep, [facility] [address] [id number] 45 [address] [place] [id number] Sep, [facility] [address] [id number] [address] [place] [address], [place] [address] Sep, [facility] [address] [id number] [address] [place] [address], [place] [address] Sep, [facility] [address] [id number] [address] [place] [address], [place] [address] Sep, [facility] [address] [id number] [address] [place] [address], [place] [address] Sep, [facility] [address] [id number] [address] [place] [address], [place] [address] Aug, [facility] [address] [id number] [address] [place] [address], [place] [address] Aug, [facility] [address] [id number] [address] [place] [address], [place] [address] Aug, [facility] [address] [id number] [address] [place] [address], [place] [address] Aug, [facility] [address] [id number] [address] [place] [address], [place] [address] Aug, [facility] [address] [id number] [address] [place] [address], [place] [address] Aug, [facility] [address] [id number] [address] [place] [address], [place] [address] Aug, [facility] [address] [id number] [address] [place] [address], [place] [address] Aug, [facility] [address] [id number] [address] [place] [address], [place] [address] Aug, [facility] [address] [id number] [address] [place] [address], [place] [address] Aug, [facility] [address] [id number] [address] [place] [address], [place] [address] Aug, [facility] [address] [place] [id number] Aug, [facility] [address] [id number] [address] [place] [address], [place] [address] Aug, [facility] [address] [id number] [address] [place] [address], [place] [address] Aug, [facility] [address] [id number] [address] [place] [address], [place] [address] Aug, [facility] [address] [id number] [address] [place] [address], [place] [address] 10 Aug, 2014 [facility] [address] [id number] [address] [place] [address], [place] [address] Aug, [facility] [address] [id number] [address] [place] [address], [place] [address] Aug, [facility] [address] [id number] [address] [place] [address], [place] [address] Aug, [facility] [address] [id number] [address] [place] [address], [place] [address] Aug, [facility] [address] [id number] [address] [place] [address], [place] [address] Aug, [facility] [address] [id number] [address] [place] [address], [place] [address] Aug, [facility] [address] [id number] [address] [place] [address], [place] [address] Aug, [facility] [address] [id number] [address] [place] [address], [place] [address] Aug, [facility] [address] [id number] [address] [place] [address], [place] [address] Aug, [facility] [address] [id number] [address] [place] [address], [place] [address] Aug, [facility] [address] [id number] [address] [place] [address], [place] [address] Aug, [facility] [address] [id number] [address] [place] [address], [place] [address] Aug, [facility] [address] [id number] [address] [place] [address], [place] [address] Aug, [facility] [address] [id number] [address] [place] [address], [place] [address] Aug, [facility] [address] [id number] [address] [place] [address], [place] [address] Jul, [facility] [address] [id number] [address] [place] [address], [place] [address] Jul, [facility] [address] [id number] [address] [place] [address], [place] [address] Jul, [facility] [address] [id number] [address] [place] [address], [place] [address] Jul, [facility] [address] [id number] [address] [place] [address], [place] [address] Jul, [facility] [address] [id number] [address] [place] [address], [place] [address] Jul, [facility] [address] [id number] [address] [place] [address], [place] [address] Jul, [facility] [address] [id number] [address] [place] [address], [place] [address] Jul, [facility] [address] [id number] [address] [place] [address], [place] [address] Jul, [facility] [address] [id number] [address] [place] [address], [place] [address] Jul, [facility] [address] [id number] [address] [place] [address], [place] [address] Jun, [facility] [address] [id number] [address] [place] [address], [place] [address] Jun, [facility] [address] [id number] [address] [place] [id number] 16 Jun, 2014 [facility] [address] [id number] [address] [place] [address], [place] [address] 16 Jun, 2014 [facility] [address] [id number] [address] [place] [address], [place] [address] 15 Jun, 2014 [facility] [address] [id number] [address] [place] [address], [place] [address] 15 Jun, 2014 [facility] [address] [id number] [address] [place] [address], [place] [address] 05 Jun, 2014 [facility] [address] [id number] [address] [place] [address], [place] [address] 05 Jun, 2014 [facility] [address] [id number] [address] [place] [address], [place] [address] Jun, [facility] [address] [id number] [address] [place] [address], [place] [address] Jun, [facility] [address] [id number] [address] [place] [address], [place] [address] 29 Sep, 2013 [facility] [address] [id number] [address] [place] [address], [place] [address] 29 Sep, 2013 [facility] [address] [id number] [address] [place] [address], [place] [address] 26 Sep, 2013 [facility] [address] [id number] [address] [place] [address], [place] [address] 26 May, 2013 [facility] [address] [id number] [address] [place] [address], [place] [address] 17 Sep, 2013 [facility] [address] [id number] [address] [place] [address], [place] [address] 17 May, 2013 [facility] [address] [id number] [address] [place] [address], [place] [address] 15 Sep, 2013 [facility] [address] [id number] [address] [place] [address], [place] [address] 15 Sep, 2013 [facility] [address] [id number] [address] [place] [address], [place] [address] 15 Sep, 2013 [facility] [address] [id number] [address] [place] [address], [place] [address] 15 Sep, 2013 [facility] [address] [id number] [address] [place] [address], [place] [address] 10 Sep, 2013 [facility] [address] [id number] [address] [place] [address] [address] 10 May2013 [facility] [address] [id number] [facility] [address] May, 2013 [facility] [address] [id number] [facility] [address] May, [facility] [address] [id number] [facility] [address] May, [facility] [address] [id number] [address] [place] [address], [place] [address] May, [facility] [address] [id number] [facility] [address] Apr, [facility] [address] [id number] [address] [place] [address], [place] [address] Apr, [facility] [address] [id number] [address] [place] [address], [place] [address] Apr, [facility] [address] [id number] [address] [place] [address], [place] [address] Apr, [facility] [address] [id number] [address] [place] [address], [place] [address] Apr, [facility] [address] [id number] [address] [place] [address], [place] [address] Apr, [facility] [address] [id number] [address] [place] [address], [place] [address] Apr, [facility] [address] [id number] [address] [place] [address], [place] [address] Apr, [facility] [address] [id number] [address] [place] [address], [place] [address] Apr, [facility] [address] [id number] [address] [place] [address], [place] [address] Apr, [facility] [address] [id number] [address] [place] [address], [place] [address] Apr, [facility] [address] [id number] [address] [place] [address], [place] [address] Apr, [facility] [address] [id number] [facility] [address] Apr, [facility] [address] [id number] [address] [place] [address], [place] [address] Apr, [facility] [address] [id number] [address] [place] [address], [place] [address] Apr, [facility] [address] [id number] [address] [place] [address], [place] [address] Mar, [facility] [address] [id number] [address] [place] [address], [place] [address] Mar, [facility] [address] [id number] [address] [place] [address], [place] [address] Mar, [facility] [address] [id number] [address] [place] [address], [place] [address] Mar, [facility] [address] [id number] [address] [place] [address], [place] [address] Mar, [facility] [address] [id number] [address] [place] [address], [place] [address] Mar, [facility] [address] [id number] [address] [place] [address], [place] [address] Mar, [facility] [address] [id number] [address] [place] [address], [place] [address] Mar, [facility] [address] [id number] [address] [place] [address], [place] [address] Mar, [facility] [address] [id number] [address] [place] [address], [place] [address] Mar, [facility] [address] [id number] [address] [place] [address], [place] [address] Mar, [facility] [address] [id number] [address] [place] [address], [place] [address] Mar, [facility] [address] [id number] [facility] [address] Mar, 2013 [facility] [address] [id number] [facility] [address] Mar, 2013 [facility] [address] [id number] [facility] [address] Mar, 2013 [facility] [address] [id number] [address] [place] [address], [place] [address] Mar, 2013 [facility] [address] [id number] [address] [place] [address], [place] [address] Mar, 2013 [facility] [address] [id number] [address] [place] [address], [place] [address] Mar, [facility] [address] [id number] [address] [place] [address], [place] [address] Feb, [facility] [address] [id number] [address] [place] [address], [place] [address] Feb, [facility] [address] [id number] [address] [place] [address], [place] [address] Feb, [facility] [address] [id number] [address] [place] [address], [place] [address] Feb, [facility] [address] [id number] [address] [place] [address], [place] [address] Feb, [facility] [address] [id number] [address] [place] [address], [place] [address] Feb, [facility] [address] [id number] [address] [place] [address], [place] [address] Feb, [facility] [address] [id number] [address] [place] [address], [place] [address] Feb, [facility] [address] [id number] [address] [place] [address], [place] [address] Feb, [facility] [address] [id number] [address] [place] [address], [place] [address] Feb, [facility] [address] [id number] [address] [place] [address], [place] [address] Feb, [facility] [address] [id number] [address] [place] [address], [place] [address] Feb, [facility] [address] [id number] [address] [place] [address], [place] [address] Feb, [facility] [address] [id number] [address] [place] [address], [place] [address] Feb, [facility] [address] [id number] [address] [place] [address], [place] [address] January, [facility] [address] [id number] [address] [place] [address], [place] [address] January, [facility] [address] [id number] [address] [place] [address], [place] [address] January, [facility] [address] [id number] [address] [place] [address], [place] [address] January, [facility] [address] [id number] [address] [place] [address], [place] [address] January, [facility] [address] [id number] [address] [place] [address], [place] [address] January, [facility] [address] [id number] [address] [place] [address], [place] [address] January, [facility] [address] [id number] [address] [place] [address], [place] [address] January, [facility] [address] [id number] [address] [place] [address], [place] [address] January, [facility] [address] [id number] [address] [place] [address], [place] [address] January, [facility] [address] [id number] [address] [place] [address], [place] [address] January, [facility] [address] [id number] [address] [place] [address], [place] [address] January, [facility] [address] [id number] [address] [place] [address], [place] [address] January, [facility] [address] [id number] [address] [place] [address], [place] [address] January, [facility] [address] [id number] [address] [place] [address], [place] [address] Dec, [facility] [address] [id number] [address] [place] [address], [place] [address] Dec, [facility] [address] [id number] [address] [place] [address], [place] [address] Dec, [facility] [address] [id number] [address] [place] [address], [place] [address] Dec, [facility] [address] [id number] [address] [place] [address], [place] [address] Dec, [facility] [address] [id number] [address] [place] [address], [place] [address] Dec, [facility] [address] [id number] [address] [place] [address], [place] [address] Dec, [facility] [address] [id number] [address] [place] [address], [place] [address] Dec, [facility] [address] [id number] [address] [place] [address], [place] [address] Dec, [facility] [address] [id number] [address] [place] [address], [place] [address] Dec, [facility] [address] [id number] [address] [place] [address], [place] [address] Nov, [facility] [address] [id number] [address] [place] [address], [place] [address] Nov, [facility] [address] [id number] [address] [place] [address], [place] [address] Nov, [facility] [address] [id number] [address] [place] [address], [place] [address] 10 Nov, 2013 [facility] [address] [id number] [address] [place] [address], [place] [address] 08 Nov, 2013 [facility] [address] [id number] [address] [place] [address], [place] [address] 08 Nov, 2013 [facility] [address] [id number] [address] [place] [address], [place] [address] Nov, [facility] [address] [id number] [address] [place] [address], [place] [address] Nov, [facility] [address] [id number] [address] [place] [address], [place] [address] Nov, [facility] [address] [id number] [address] [place] [address], [place] [address] Nov, [facility] [address] [id number] [address] [place] [address], [place] [address] Oct, [facility] [address] [id number] [address] [place] [address], [place] [address] Oct, [facility] [address] [id number] [address] [place] [address], [place] [address] Oct, [facility] [address] [id number] [address] [place] [address], [place] [address] Oct, [facility] [address] [id number] [address] [place] [address], [place] [address] Oct, [facility] [address] [id number] [address] [place] [address], [place] [address] Oct, [facility] [address] [id number] [address] [place] [address], [place] [address] 14 Oct, 2013 [facility] [address] [id number] [address] [place] [address], [place] [address] 14 Oct, 2013 [facility] [address] [id number] [address] [place] [address], [place] [address] Oct, [facility] [address] [id number] [address] [place] [address], [place] [address] Oct, [facility] [address] [id number] [address] [place] [address], [place] [address] Oct, [facility] [address] [id number] [address] [place] [address], [place] [address] Oct, [facility] [address] [id number] [address] [place] [address], [place] [address] Oct, [facility] [address] [id number] [address] [place] [address], [place] [address] Oct, [facility] [address] [id number] [address] [place] [address], [place] [address] Sep, [facility] [address] [id number] [address] [place] [address], [place] [address] Sep, [facility] [address] [id number] [address] [place] [address], [place] [address] Sep, [facility] [address] [id number] [address] [place] [address], [place] [address] Sep, [facility] [address] [id number] [address] [place] [address], [place] [address] Sep, [facility] [address] [id number] [address] [place] [address], [place] [address] Sep, [facility] [address] [id number] [address] [place] [address], [place] [address] Sep, [facility] [address] [id number] [address] [place] [address], [place] [address] Sep, [facility] [address] [id number] [address] [place] [address], [place] [address] Sep, [facility] [address] [id number] [address] [place] [address], [place] [address] Sep, [facility] [address] [id number] [address] [place] [address], [place] [address] Aug, [facility] [address] [id number] [address] [place] [address], [place] [address] Aug, [facility] [address] [id number] [address] [place] [address], [place] [address] Jul, [facility] [address] [id number] [address] [place] [address], [place] [address] Jul, [facility] [address] [id number] [address] [place] [address], [place] [address] Jul, [facility] [address] [id number] [address] [place] [address], [place] [address] Jul, [facility] [address] [id number] [address] [place] [address], [place] [address] Jul, [facility] [address] [id number] [address] [place] [address], [place] [address] Jul, [facility] [address] [id number] [address] [place] [address], [place] [address] Jul, [facility] [address] [id number] [address] [place] [address], [place] [address] Jul, [facility] [address] [id number] [address] [place] [address], [place] [address] Jul, [facility] [address] [id number] [address] [place] [address], [place] [address] Jul, [facility] [address] [id number] [address] [place] [address], [place] [address] Jul, [facility] [address] [id number] [address] [place] [address], [place] [address] Jul, [facility] [address] [id number] [address] [place] [address], [place] [address] Jul, [facility] [address] [id number] [address] [place] [id number] Jul, [facility] [address] [id number] [address] [place] [address], [place] [address] Jul, 2012 [facility] [address] [id number] [address] [place] [id number] Jul, [facility] [address] [id number] [address] [place] [id number] Jul, [facility] [address] [id number] [address] [place] [id number] Jul, [facility] [address] [id number] [address] [place] [address], [place] [address] Jul, [facility] [address] [id number] [address] [place] [id number] Jun, [facility] [address] [id number] [address] [place] [id number] Jun, [facility] [address] [id number] [address] [place] [id number] Jun, [facility] [address] [id number] [address] [place] [id number] Jun, 2012 [facility] [address] [id number] [address] [place] [id number] Jun, [facility] [address] [id number] [address] [place] [id number] Jun, [facility] [address] [id number] [address] [place] [id number] Jun, [facility] [address] [id number] [address] [place] [address], [place] [address] Jun, [facility] [address] [id number] [address] [place] [id number] Jun, [facility] [address] [id number] [address] [place] [id number] Jun, [facility] [address] [id number] [address] [place] [address], [place] [address] Jun, [facility] [address] [id number] [address] [place] [address], [place] [address] May, 2012 [facility] [address] [id number] [address] [place] [address], [place] [address] May, [facility] [address] [id number] [address] [place] [address], [place] [address] May, 2012 [facility] [address] [id number] [address] [place] [address], [place] [address] 17 May, 2012 [facility] [address] [id number] [address] [place] [address], [place] [address] May, 2012 [facility] [address] [id number] [address] [place] [address], [place] [address] May, 2012 [facility] [address] [id number] [address] [place] [address], [place] [address] May, [facility] [address] [id number] [address] [place] [address], [place] [address] 05 May, 2013 [facility] [address] [id number] [address] [place] [address], [place] [address] Apr, [facility] [address] [id number] [address] [place] [address], [place] [address] Apr, [facility] [address] [id number] [address] [place] [address], [place] [address] Apr, [facility] [address] [id number] [address] [place] [address], [place] [address] Apr, [facility] [address] [id number] [address] [place] [address], [place] [address] Apr, [facility] [address] [id number] [address] [place] [address], [place] [address] Mar, [facility] [address] [id number] [address] [place] [address], [place] [address] Mar, [facility] [address] [id number] [address] [place] [address], [place] [address] Mar, [facility] [address] [id number] [address] [place] [address], [place] [address] Mar, [facility] [address] [id number] [address] [place] [address], [place] [address] Mar, [facility] [address] [id number] [address] [place] [address], [place] [address] Mar, [facility] [address] [id number] [address] [place] [address], [place] [address] Mar, [facility] [address] [id number] [address] [place] [address], [place] [address] Mar, [facility] [address] [id number] [address] [place] [address], [place] [address] Feb, [facility] [address] [id number] [address] [place] [address], [place] [address] Feb, [facility] [address] [id number] [address] [place] [address], [place] [address] January, [facility] [address] [id number] [address] [place] [address], [place] [address] January, [facility] [address] [id number] [address] [place] [address], [place] [address] Dec, [facility] [address] [id number] [address] [place] [address], [place] [address] Dec, [facility] [address] [id number] [address] [place] [address], [place] [address] Nov, [facility] [address] [id number] [address] [place] [address], [place] [address] Nov, [facility] [address] [id number] [address] [place] [address], [place] [address] Nov, [facility] [address] [id number] [address] [place] [address], [place] [address] 14 Nov, 2012 [facility] [address] [id number] [address] [place] [address], [place] [address] Oct, [facility] [address] [id number] [address] [place] [address], [place] [address] Oct, [facility] [address] [id number] [address] [place] [address], [place] [address] Oct, [facility] [address] [id number] [address] [place] [address], [place] [address] Oct, [facility] [address] [id number] [address] [place] [address], [place] [address] 16 Oct, 2012 [facility] [address] [id number] [address] [place] [address], [place] [address] 14 Oct, 2012 [facility] [address] [id number] [address] [place] [address], [place] [address] 08 Oct, 2012 [facility] [address] [id number] [address] [place] [address], [place] [address] 07 Oct, 2012 [facility] [address] [id number] [address] [place] [address], [place] [address] 03 Oct, 2012 [facility] [address] [id number] [address] [place] [address], [place] [address] 30 Sep, 2012 [facility] [address] [id number] [address] [place] [address], [place] [address] Sep, [facility] [address] [id number] [address] [place] [address], [place] [address] Sep, [facility] [address] [id number] [address] [place] [address], [place] [address] Sep, [facility] [address] [id number] [address] [place] [address], [place] [address] Sep, [facility] [address] [id number] [address] [place] [address], [place] [address] Sep, [facility] [address] [id number] [address] [place] [address], [place] [address] Sep, [facility] [address] [id number] [address] [place] [address], [place] [address] Sep, [facility] [address] [id number] [address] [place] [address], [place] [address] Aug, [facility] [address] [id number] [address] [place] [address], [place] [address] Aug, [facility] [address] [id number] [address] [place] [address], [place] [address] Aug, [facility] [address] [id number] [address] [place] [address], [place] [address] Aug, [facility] [address] [id number] [address] [place] [address], [place] [address] Aug, [facility] [address] [id number] [address] [place] [address], [place] [address] Aug, [facility] [address] [id number] [address] [place] [address], [place] [address] Aug, [facility] [address] [id number] [address] [place] [address], [place] [address] Aug, [facility] [address] [id number] [address] [place] [address], [place] [address] Jul, [facility] [address] [id number] [address] [place] [address], [place] [address] Jul, [facility] [address] [id number] [address] [place] [address], [place] [address] Jul, [facility] [address] [id number] [address] [place] [address], [place] [address] Jul, [facility] [address] [id number] [address] [place] [address], [place] [address] Jul, [facility] [address] [id number] [address] [place] [address], [place] [address] Jul, [facility] [address] [id number] [address] [place] [address], [place] [address] Jun, [facility] [address] [id number] [address] [place] [address], [place] [address] Jun, [facility] [address] [id number] [address] [place] [address], [place] [address] Jun, [facility] [address] [id number] [address] [place] [address], [place] [address] Jun, [facility] [address] [id number] [address] [place] [address], [place] [address] Jun, [facility] [address] [id number] [address] [place] [address], [place] [address] Jun, [facility] [address] [id number] [address] [place] [address], [place] [address] Jun, [facility] [address] [id number] [address] [place] [address], [place] [address] Jun, [facility] [address] [id number] [address] [place] [address], [place] [address] Jun, [facility] [address] [id number] [address] [place] [address], [place] [address] 26 May, 2012 [facility] [address] [id number] [address] [place] [address], [place] [address] 24 May, 2012 [facility] [address] [id number] [address] [place] [address], [place] [address] 18 May, 2012 [facility] [address] [id number] [address] [place] [address], [place] [address] 30 Apr, 2012 [facility] [address] [id number] [address] [place] [address], [place] [address] Apr, [facility] [address] [id number] [address] [place] [address], [place] [address] Apr, [facility] [address] [id number] [address] [place] [address], [place] [address] 14 Apr, 2012 [facility] [address] [id number] [address] [place] [address], [place] [address] Apr, [facility] [address] [id number] [address] [place] [address], [place] [address] Apr, [facility] [address] [id number] [address] [place] [address], [place] [address] Mar, [facility] [address] [id number] [address] [place] [address], [place] [address] Mar, [facility] [address] [id number] [address] [place] [address], [place] [address] Mar, [facility] [address] [id number] [address] [place] [address], [place] [address] Mar, [facility] [address] [id number] [address] [place] [address], [place] [address] Feb, [facility] [address] [id number] [address] [place] [address], [place] [address] Feb, [facility] [address] [id number] [address] [place] [address], [place] [address] Feb, [facility] [address] [id number] [address] [place] [address], [place] [address] Feb, [facility] [address] [id number] [address] [place] [address], [place] [address] Feb, [facility] [address] [id number] [address] [place] [address], [place] [address] January, [facility] [address] [id number] [address] [place] [address], [place] [address] January, [facility] [address] [id number] [address] [place] [address], [place] [address] January, [facility] [address] [id number] [address] [place] [address], [place] [address] January, [facility] [address] [id number] [address] [place] [address], [place] [address] January, [facility] [address] [id number] [address] [place] [address], [place] [address] January, [facility] [address] [id number] [address] [place] [address], [place] [address] Dec, [facility] [address] [id number] [address] [place] [address], [place] [address] Dec, [facility] [address] [id number] [address] [place] [address], [place] [address] Dec, [facility] [address] [id number] [address] [place] [address], [place] [address] Dec, [facility] [address] [id number] [address] [place] [address], [place] [address] Dec, [facility] [address] [id number] [address] [place] [address], [place] [address] Nov, [facility] [address] [id number] [address] [place] [address], [place] [address] Nov, [facility] [address] [id number] [address] [place] [address], [place] [address] Nov, [facility] [address] [id number] [address] [place] [address], [place] [address] Nov, [facility] [address] [id number] [address] [place] [address], [place] [address] Oct, [facility] [address] [id number] [address] [place] [address], [place] [address] Oct, [facility] [address] [id number] [address] [place] [address], [place] [address] 24 Oct, 2011 [facility] [address] [id number] [address] [place] [address], [place] [address] 13 Oct, 2011 [facility] [address] [id number] [address] [place] [address], [place] [address] Oct, [facility] [address] [id number] [address] [place] [address], [place] [address] Sep, [facility] [address] [id number] [address] [place] [address], [place] [address] Sep, [facility] [address] [id number] [address] [place] [address], [place] [address] Sep, [facility] [address] [id number] [address] [place] [address], [place] [address] Sep, [facility] [address] [id number] [address] [place] [address], [place] [address] Sep, [facility] [address] [id number] [address] [place] [address], [place] [address] Sep, [facility] [address] [id number] [address] [place] [address], [place] [address] Aug, [facility] [address] [id number] [address] [place] [address], [place] [address] Aug, [facility] [address] [id number] [address] [place] [address], [place] [address] Aug, [facility] [address] [id number] [address] [place] [address], [place] [address] Jul, [facility] [address] [id number] [address] [place] [address], [place] [address] Jul, [facility] [address] [id number] [address] [place] [address], [place] [address] Jul, [facility] [address] [id number] [address] [place] [address], [place] [address] Jul, [facility] [address] [id number] [address] [place] [address], [place] [address] Jun, [facility] [address] [id number] [address] [place] [address], [place] [address] Jun, [facility] [address] [id number] [address] [place] [address], [place] [address] 18 Jun, 2011 [facility] [address] [id number] [address] [place] [address], [place] [address] 10 Jun, 2011 [facility] [address] [id number] [address] [place] [address], [place] [address] 10 Jun, 2011 [facility] [address] [id number] [address] [place] [address], [place] [address] 10 Jun, 2011 [facility] [address] [id number] [address] [place] [address], [place] [address] 11 Mar, 2011 [facility] [address] [id number] [address] [place] [address], [place] [address] 18 Dec, 2010 [facility] [address] [id number] [address] [place] [address], [place] [address] 11 Dec, 2010 [facility] [address] [id number] [address] [place] [address], [place] [address] 18 Nov, 2010 [facility] [address] [id number] [address] [place] [address], [place] [address] 16 Nov, 2010 [facility] [address] [id number] [address] [place] [address], [place] [address] Sep, [facility] [address] [id number] [address] [place] [address], [place] [address] 31 Aug, 2010 [facility] [address] [id number] [address] [place] [address], [place] [address] 29 Aug, 2010 [facility] [address] [id number] [address] [place] [address], [place] [address] Aug, [facility] [address] [id number] [address] [place] [address], [place] [address] 29 Aug, 2010 [facility] [address] [id number] [address] [place] [address], [place] [address] 27 Aug, 2010 [facility] [address] [id number] [address] [place] [address], [place] [address] 14 Aug, 2010 [facility] [address] [id number] [address] [place] [address], [place] [address] 08 Aug, 2010 [facility] [address] [id number] [address] [place] [address], [place] [address] 08 Aug, 2010 [facility] [address] [id number] [address] [place] [address], [place] [address] 07 Aug, 2010 [facility] [address] [id number] [address] [place] [address], [place] [address] 06 Aug, 2010 [facility] [address] [id number] [address] [place] [address], [place] [address] 06 Aug, 2010 [facility] [address] [id number] [address] [place] [address], [place] [address] Aug, [facility] [address] [id number] [address] [place] [address], [place] [address] 30 Jul, 2010 [facility] [address] [id number] [address] [place] [address], [place] [address] 30 Jul, 2010 [facility] [address] [id number] [address] [place] [address], [place] [address] 30 Jul, 2010 [facility] [address] [id number] [address] [place] [address], [place] [address] Jul, [facility] [address] [id number] [address] [place] [address], [place] [address] Jul, [facility] [address] [id number] [address] [place] [id number] Jul, [facility] [address] [id number] [address] [place] [address], [place] [address] Jun, [facility] [address] [id number] [address] [place] [address], [place] [address] Jun, [facility] [address] [id number] [address] [place] [id number] Jun, [facility] [address] [id number] [address] [place] [address], [place] [address] 13 Jun, 2010 [facility] [address] [id number] [address] [place] [address], [place] [address] 16 Apr, 2010 [facility] [address] [id number] [address] [place] [address], [place] [address] Mar, [facility] [address] [id number] [address] [place] [address], [place] [address] 17 Feb, 2010 [facility] [address] [id number] [address] [place] [address], [place] [address] January, [facility] [address] [id number] [address] [place] [address], [place] [address] 15 Dec, 2009 [facility] [address] [id number] [address] [place] [address], [place] [address] Nov, [facility] [address] [id number] [address] [place] [address], [place] [address] Aug, [facility] [address] [id number] [address] [place] [address], [place] [address] Aug, [facility] [address] [id number] [address] [place] [address], [place] [address] Aug, [facility] [address] [id number] [address] [place] [address], [place] [address] Jul, [facility] [address] [id number] [address] [place] [address], [place] [address] Jul, [facility] [address] [id number] [address] [place] [address], [place] [address] 07 Jul, 2009 [facility] [address] [id number] [address] [place] [address], [place] [address] 30 Jun, 2009 [facility] [address] [id number] [address] [place] [address], [place] [address] 29 Jun, 2009 [facility] [address] [id number] [address] [place] [address], [place] [address] Jun, [facility] [address] [id number] [address] [place] [id number] Jun, [facility] [address] [id number] [address] [place] [id number] Jun, [facility] [address] [facility] [id number] [address] [place] [id number] Jun, [facility] [address] [id number] [address] [place] [id number] Apr, [facility] [address] [id number] [address] [place] [id number] Apr, [facility] [address] [facility] [id number] [address] [place] [id number] Feb, [facility] [address] [facility] [id number] [address] [place] [id number] January, [facility] [address] [facility] [id number] [address] [place] [id number] Dec, IMMUNIZATIONS No Known Immunizations SOCIAL HISTORY Never Assessed REASON FOR VISIT PLAN OF CARE VITAL SIGNS MEDICATIONS Unknown Medications RESULTS No Results PROCEDURES Procedure Date Ordered Result Body Site PSYTX PT&/FAMILY 45 MINUTES Jun 03, 2014 INSTRUCTIONS MEDICATIONS ADMINISTERED No Known Medications [...] History inability to urinate 09/16/15 Hospitalization History [facility] inpatient mental health ea rly 2000's Hospitalization History hyperkalemia 10/2017 Hospitalization History fluid in lung
[2020-03-01 17:19] LABS: ALBUMIN 3.5 GM/DL (3.2-4.5); CHLORIDE 96 MMOL/L (98-107); INR 0.9 (0.8-1.4); POTASSIUM 3.7 MMOL/L (3.6-5.0); SODIUM 133 MMOL/L (135-145)
--- OUTSIDE RECORDS SUMMARY | 2020-03-01 17:19 | XMS REPORT ---
Author Michele Joy Organization [facility] Address [address] [place] [address] Care Team Providers Care Deposition Operator Name Role Phone YONATHAN RIOS Unavailable PROBLEMS Type Condition ICD9-CM Code [id number] Code Onset Dates Condition S tatus SNOMED Code Problem Cough R05 Active 38458712 Problem Benign prostatic hyperplasia with lower urinary tract symptoms, unspecified morphology N40.1 Active 58547 6007 Problem Eustachian tube dysfunction, unspecified laterality H69.80 Active 17203404 Problem Chronic pain G89.29 Active 6105558 1 Problem DM neuro manif type II E11.49 Active 55418389 Problem Diabetes E11.9 Active 69321741 Problem Leukocytosis D72.829 Active 4965491 06 Problem Falling R29.6 Active 264592625 Problem Pressure ulcer of other site, stage 3 L89.893 Active 126604626 Problem 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 Active 961448045 Problem Eye exam abnormal R93.8 Active 16 2334872 Problem Dysuria R30.0 Active 39077640 Problem Hypokalemia E87.6 Active 60257164 Problem Morbid obesity E66.01 Active 54547 6002 Problem Anxiety F41.9 Active 08837826 Problem Diabetic polyneuropathy associated with type 2 d iabetes mellitus E11.42 Active 07264091 Problem Essential hypertension I10 Active 57284741 Problem Bilateral primary osteoarthritis of knee M17.0 Active 548875429 Problem Polyneuropathy associated with underlying disease G63 Active 763186989 Problem Anemia of chronic illness D63.8 Acti ve 573303525 Problem Lymphocytosis D72.820 Active 432517 09 Problem Retinal edema H35.81 Active 911409 6 Problem Chronic lymphocytic leukemia C91.10 A ctive 89937979 Problem Bipolar disorder, in partial remission, most rec ent episode depressed F31.75 Active 23617421 Problem Pure hypercholesterolemia E78.00 Acti ve 902122297 Problem Primary osteoarthritis of right knee M17.11 Active 534598895504561 Problem Bipolar disorder F31.9 Active 137 39212 Problem Bipolar I disorder, most recent episode (or curr ent) mixed, moderate F31.62 Active 45793372 Problem Chronic diastolic (congestive) heart failure I50.3 2 Active 445178862 Problem Reactive airway disease J45.909 Active 922121970097 Problem Insomnia, unspecified type G47.00 Act sharon 256062305 Problem Other chronic pain G89.29 Active 8 3941490 Problem Other iron deficiency anemia D50.8 A ctive 62075291 Problem Mild cognitive impairment G31.84 Acti ve 955899216 Problem Skin cancer C44.90 Active 18214850 7 ALLERGIES No Information ENCOUNTERS Encounter Location Date Diagnosis [facility] [address] [facility] [id number] [address] [place] [id number] Jun, [facility] [id number] [place] [phone] Jun, [place] [address] [address] [place] [id number] [address] [place] [id number] May, [place] [address] [place] [id number] [address] [place] [id number] Apr, Chronic pain G89.29 and Bipo lar disorder F31.9 [facility] [address] [facility] [id number] [address] [place] [id number] Mar, Bipolar disorder F31.9 and C hronic pain G89.29 [facility] [address] [facility] [id number] [address] [place] [id number] Feb, Bipolar disorder F31.9 [facility] [address] [facility] [id number] [address] [place] [id number] Feb, Cellulitis of right upper ex tremity L03.113 and Skin abrasion T14.8XXA [facility] [address] [facility] [id number] [address] [place] [phone] Feb, Bipolar disorder, in partial remission, most recent episode depressed F31.75 and Mild cognitive impairment G31.84 [facility] [address] [id number] [address] [place] [id number] 13 Feb, 2019 Chronic pain G89.29 [facility] [address] [id number] [address] [place] [id number] Feb, Bipolar disorder, in partial remission, most recent episode depressed F31.75 and Mild cognitive impairment G31.84 [facility] [address] [id number] [address] [place] [id number] January, Bipolar disorder, in partial remission, most recent episode depressed F31.75 and Mild cognitive impairment G31.84 [facility] [address] [id number] [address] [place] [id number] January, Chronic pain G89.29 and Bipo lar disorder F31.9 [facility] [address] [id number] [address] [place] [id number] January, Bipolar disorder, in partial remission, most recent episode depressed F31.75 and Mild cognitive impairment G31.84 [facility] [address] [id number] [address] [place] [id number] Dec, [facility] [address] [id number] [address] [place] [id number] Dec, Chronic pain G89.29 and Bipo lar disorder F31.9 [facility] [address] [id number] [address] [place] [id number] Dec, Edema of both lower extremit ies R60.0 [facility] [address] [id number] [address] [place] [id number] Dec, Bipolar disorder F31.9 [facility] [address] [id number] [address] [place] [id number] Dec, Bipolar disorder, in partial remission, most recent episode depressed F31.75 and Mild cognitive impairment G31.84 [facility] [address] [id number] [address] [place] [phone] Nov, [place] [address] [place] [id number] [address] [place] [id number] Nov, Chronic pain G89.29 [place] [address] [address] Nov, Bipolar disorder, in partial remission, most recent episode depressed F31.75 and Mild cognitive impairment G31.84 [place] [address] [address] Nov, Bipolar disorder F31.9 [place] [address] [id number] Nov, [facility] ; [...] unspecified morphology N40.1 and Essential hypertension I10 [place] [id number] [address] [place] [id number] Oct, Chronic pain G89.29 [place] [address] [place] [id number] [address] [place] [phone] Oct, Diabetes E11.9 [place] [address] [place] [id number] [address] [place] [id number] Oct, Bipolar I disorder, most rec ent episode (or current) mixed, moderate F31.62 and Mild cognitive impairment G31.84 [place] [id number] [address] [place] [id number] Oct, Bipolar I disorder, most rec ent episode (or current) mixed, moderate F31.62 and Mild cognitive impairment G31.84 [place] [address] [place] [id number] [address] [place] [id number] Sep, Bipolar I disorder, most rec ent episode (or current) mixed, moderate F31.62 and Mild cognitive impairment G31.84 [facility] [address] [facility] [id number] [address] [place] [id number] Sep, [facility] [address] [facility] [id number] [address] [place] [id number] Sep, Diabetes E11.9 ; Hypoxia R09 .02 ; Hyperglycemia R73.9 ; Therapeutic drug monitoring Z51.81 ; BMI 50.0-59.9, adult Z68.43 and Skin cancer C44.90 [place] [address] [facility] [id number] [address] [place] [id number] Sep, Chronic pain G89.29 [place] [address] [facility] [id number] [address] [place] [id number] Sep, Bipolar I disorder, most rec ent episode (or current) mixed, moderate F31.62 [facility] [address] [facility] [id number] [address] [place] [phone] Sep, [facility] [address] [facility] [id number] [address] [place] [id number] Sep, [facility] [address] [facility] [id number] [address] [place] [id number] Aug, Chronic pain G89.29 [facility] [address] [facility] [id number] [address] [place] [id number] Aug, Bipolar I disorder, most rec ent episode (or current) mixed, moderate F31.62 [facility] [address] [facility] [id number] [address] [place] [id number] Aug, Bipolar I disorder, most rec ent episode (or current) mixed, moderate F31.62 and Mild cognitive impairment G31.84 [facility] [address] [facility] [id number] [address] [place] [id number] Jul, [facility] [address] [id number] [address] [place] [id number] Jul, Chronic pain G89.29 [facility] [address] [id number] [address] [place] [id number] Jul, Bipolar I disorder, most rec ent episode (or current) mixed, moderate F31.62 and Mild cognitive impairment G31.84 [facility] [address] [id number] [address] [place] [id number] Jul, Bipolar I disorder, most rec ent episode (or current) mixed, moderate F31.62 and MCI (mild cognitive impairment) G31.84 [facility] [address] [id number] [address] [place] [id number] Jul, [facility] [address] [id number] [address] [place] [phone] Jul, [facility] [address] [id number] [address] [place] [id number] Jul, Bipolar I disorder, most rec ent episode (or current) mixed, moderate F31.62 [facility] [address] [id number] [address] [place] [id number] Jul, Chronic pain G89.29 [facility] [address] [id number] [address] [place] [id number] Jun, Bipolar I disorder, most rec ent episode (or current) mixed, moderate F31.62 [facility] [address] [id number] [address] [place] [id number] Jun, Pre-procedure lab exam Z01.8 12 [facility] [address] [id number] [address] [place] [id number] Jun, [facility] [place] [address] [id number] [place] [id number] Jun, [facility] [address] [id number] [address] [place] [id number] Jun, [facility] [address] [address] Jun, Forgetfulness R68.89 ; Pre-s yncope R55 ; Localized edema R60.0 ; Other iron deficiency anemia D50.8 and BMI 50.0-59.9, adult Z68.43 [place] [address] [address] Jun, Chronic pain G89.29 [place] [address] [address] Jun, Chronic pain G89.29 [place] [address] [address] Jun, Bipolar I disorder, most rec ent episode (or current) mixed, moderate F31.62 [place] [address] [address] May, Chronic pain G89.29 [place] [address] [address] Apr, [place] [address] [address] Apr, Chronic pain G89.29 [place] [address] [address] Apr, Primary osteoarthritis of ri ght knee M17.11 [place] [address] [address] Mar, [place] [address] [address] Mar, BMI 50.0-59.9, adult Z68.43 and Bipolar disorder, in partial remission, most recent episode depressed F31.75 [place] [address] [address] Mar, Diabetes E11.9 ; Pure hyperc holesterolemia E78.00 ; Essential hypertension I10 ; Nausea with vomiting, unspecified R11.2 and Headache, unspecified headache type R51 [facility] [address] [facility] [id number] [address] [place] [id number] Mar, Bipolar I disorder, most rec ent episode (or current) mixed, moderate F31.62 [facility] [address] [facility] [id number] [address] [place] [id number] Mar, Bipolar I disorder, most rec ent episode (or current) mixed, moderate F31.62 [place] [address] [facility] [id number] [address] [place] [id number] Mar, Chronic pain G89.29 [place] [address] [facility] [id number] [address] [place] [phone] Mar, Bipolar I disorder, most rec ent episode (or current) mixed, moderate F31.62 [place] [address] [place] [id number] [address] [place] [id number] Feb, Bipolar I disorder, most rec ent episode (or current) mixed, moderate F31.62 [place] [address] [facility] [id number] [address] [place] [id number] Feb, Chronic pain G89.29 [place] [address] [place] [id number] [address] [place] [id number] Feb, Decubitus ulcer of right josselin t, stage 3 L89.893 and BMI 50.0-59.9, adult Z68.43 [place] [address] [facility] [id number] [address] [place] [id number] Feb, Bipolar I disorder, most rec ent episode (or current) mixed, moderate F31.62 [place] [address] [place] [id number] [address] [place] [id number] Feb, [facility] [address] [facility] [id number] [address] [place] [id number] January, [facility] [address] [facility] [id number] [address] [place] [id number] January, Chronic pain G89.29 [facility] [address] [facility] [id number] [address] [place] [id number] January, Bipolar I disorder, most rec ent episode (or current) mixed, moderate F31.62 [facility] [address] [facility] [id number] [address] [place] [id number] January, Bipolar I disorder, most rec ent episode (or current) mixed, moderate F31.62 [place] [address] [place] [id number] [address] [place] [id number] Dec, Bipolar I disorder, most rec ent episode (or current) mixed, moderate F31.62 and BMI 50.0-59.9, adult Z68.43 [place] [address] [place] [id number] [place] [id number] Dec, Bipolar I disorder, most rec ent episode (or current) mixed, moderate F31.62 [place] [address] [place] [id number] [address] [place] [id number] Dec, Chronic pain G89.29 [place] [address] [place] [id number] [place] [address] Dec, DM neuro manif type II E11.4 9 ; Right flank pain R10.9 ; shelter 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 Z79.891 ; Encounter for medication monitoring Z51.81 and BMI 50.0-59.9, adult Z68.43 [place] [address] [place] [id number] [address] [place] [id number] Dec, Bipolar I disorder, most rec ent episode (or current) mixed, moderate F31.62 [place] [address] [place] [id number] [address] [place] [id number] Nov, Bipolar I disorder, most rec ent episode (or current) mixed, moderate F31.62 [place] [address] [place] [id number] [address] [place] [id number] Nov, Chronic pain G89.29 [place] [address] [place] [id number] [place] [phone] Nov, Bipolar I disorder, most rec ent episode (or current) mixed, moderate F31.62 [place] [address] [address] Nov, Hypokalemia E87.6 [place] [address] [address] Nov, Bipolar I disorder, most rec ent episode (or current) mixed, moderate F31.62 [place] [address] [address] Oct, Chronic pain G89.29 [place] [address] [address] Oct, BMI 50.0-59.9, adult Z68.43 and Bipolar I disorder, most recent episode (or current) mixed, moderate F31.62 [place] [address] [address] Oct, Bipolar I disorder, most rec ent episode (or current) mixed, moderate F31.62 [place] [address] [address] Oct, [place] [address] [address] Oct, Hypokalemia E87.6 [place] [address] [address] Oct, DM neuro manif type II E11.4 9 [place] [address] [address] Oct, Bipolar I disorder, most rec ent episode (or current) mixed, moderate F31.62 [place] [address] [place] [id number] [place] [address] Oct, Bipolar I disorder, most rec ent episode (or current) mixed, moderate F31.62 [place] [id number] [address] 14 Oct, 2017 Hyperkalemia E87.5 ; Falling R29.6 ; BMI 50.0-59.9, adult Z68.43 and Acute left ankle pain M25.572 [place] [address] [address] 08 Oct, 2017 DM neuro manif type II E11.4 9 [place] [address] [address] Oct, [place] [address] [address] Sep, Chronic pain G89.29 [place] [address] [address] Sep, [place] [address] [address] Sep, Bilateral primary osteoarthr itis of knee M17.[address] [address] 18 Sep, 2017 Generalized edema R60.1 [place] [address] [address] 16 Sep, 2017 Bipolar I disorder, most rec ent episode (or current) mixed, moderate F31.62 [place] [address] [address] 15 Sep, 2017 Hypoxia R09.02 ; Other hyper volemia E87.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 ; Anemia of chronic illness D63.8 and BMI 50.0- 59.9, adult Z68.43 [place] [address] [address] Sep, [place] [address] [facility] [id number] [address] [place] [phone] Sep, Bipolar I disorder, most rec ent episode (or current) mixed, moderate F31.62 [facility] [address] [facility] [id number] [address] [place] [id number] 28 Aug, 2017 Chronic pain G89.29 [facility] [address] [facility] [id number] [address] [place] [id number] Aug, Generalized edema R60.1 [facility] [address] [facility] [id number] [address] [place] [phone] Aug, [facility] [address] [facility] [id number] [address] [place] [id number] 18 Aug, 2017 [facility] [address] [facility] [id number] [address] [place] [id number] 14 Aug, 2017 Bipolar I disorder, most rec ent episode (or current) mixed, moderate F31.62 [facility] [address] [facility] [id number] [address] [place] [id number] 07 Aug, 2017 Bipolar I disorder, most rec ent episode (or current) mixed, moderate F31.62 [facility] [address] [facility] [id number] [address] [place] [id number] 04 Aug, 2017 Chronic pain G89.29 [facility] [address] [facility] [id number] [address] [place] [id number] 30 Jul, 2017 Bipolar I disorder, most rec ent episode (or current) mixed, moderate F31.62 [facility] [address] [facility] [id number] [address] [place] [id number] Jul, Bipolar I disorder, most rec ent episode (or current) mixed, moderate F31.62 and BMI 60.0-69.9, adult Z68.44 [facility] [address] [facility] [id number] [address] [place] [id number] 16 Jul, 2017 Bipolar I disorder, most rec ent episode (or current) mixed, moderate F31.62 [facility] [address] [place] [id number] [address] [place] [id number] Jul, Chronic pain G89.29 [facility] [address] [facility] [id number] [address] [place] [id number] Jul, Bipolar I disorder, most rec ent episode (or current) mixed, moderate F31.62 [facility] [address] [facility] [id number] [address] [place] [address] Jun, Polyneuropathy associated wi th underlying disease G63 and Diabetes E11.9 [facility] [address] [id number] [address] [place] [id number] Jun, Bipolar I disorder, most rec ent episode (or current) mixed, moderate F31.62 [place] [address] [facility] [id number] [address] [place] [id number] Jun, Chronic pain G89.29 [facility] [address] [facility] [id number] [address] [place] [id number] May, Bipolar I disorder, most rec ent episode (or current) mixed, moderate F31.62 [place] [address] [facility] [id number] [address] [place] [phone] May, Bipolar I disorder, most rec ent episode (or current) mixed, moderate F31.62 [place] [address] [facility] [id number] [address] [place] [address] May, Diabetic polyneuropathy asso ciated with type 2 diabetes mellitus E11.42 [facility] [address] [id number] [address] [place] [id number] 18 May, 2017 Bipolar I disorder, most rec ent episode (or current) mixed, moderate F31.62 [place] [address] [facility] [id number] [address] [place] [id number] May, Bipolar I disorder, most rec ent episode (or current) mixed, moderate F31.62 [place] [address] [facility] [id number] [address] [place] [address] May, Chronic pain G89.29 [facility] [address] [id number] [address] [place] [id number] Apr, Bipolar I disorder, most rec ent episode (or current) mixed, moderate F31.62 [facility] [address] [id number] [address] [place] [id number] Apr, [facility] [address] [id number] [address] [place] [id number] Apr, Chronic pain G89.29 and DM n euro manif type II E11.49 [facility] [address] [id number] [address] [place] [phone] Apr, [facility] [address] [id number] [address] [place] [id number] Apr, Bipolar I disorder, most rec ent episode (or current) mixed, moderate F31.62 [facility] [address] [id number] [address] [place] [id number] Apr, Chronic pain G89.29 [facility] [address] [id number] [address] [place] [id number] Apr, Iliotibial band syndrome, le ft M76.32 [facility] [address] [facility] [id number] [address] [place] [id number] Apr, Bipolar I disorder, most rec ent episode (or current) mixed, moderate F31.62 [facility] [address] [id number] [address] [place] [id number] Mar, Bipolar I disorder, most rec ent episode (or current) mixed, moderate F31.62 [facility] [address] [facility] [id number] [address] [place] [id number] Mar, Bipolar I disorder, most rec ent episode (or current) mixed, moderate F31.62 [facility] [address] [facility] [id number] [address] [place] [id number] Mar, [facility] [address] [facility] [id number] [address] [place] [phone] Mar, Bipolar I disorder, most rec ent episode (or current) mixed, moderate F31.62 [facility] [address] [facility] [id number] [address] [place] [id number] Mar, Chronic pain G89.29 [facility] [address] [facility] [id number] [address] [place] [phone] Mar, Bipolar I disorder, most rec ent episode (or current) mixed, moderate F31.62 [facility] [address] [facility] [id number] [address] [place] [id number] Mar, Bipolar I disorder, most rec ent episode (or current) mixed, moderate F31.62 [facility] [address] [facility] [id number] [address] [place] [id number] Mar, Acute pain of left knee M25. 562 ; Left hip pain M25.552 ; Generalized edema R60.1 and Tongue swelling R22.0 [facility] [address] [facility] [id number] [address] [place] [id number] Mar, [facility] [address] [facility] [id number] [address] [place] [phone] Feb, Chronic pain G89.29 [facility] [address] [facility] [id number] [address] [place] [id number] Feb, Diabetes E11.9 [facility] [address] [facility] [id number] [address] [place] [id number] January, Chronic pain G89.29 [facility] [address] [facility] [id number] [address] [place] [id number] January, [facility] [address] [facility] [id number] [address] [place] [id number] January, Bipolar I disorder, most rec ent episode (or current) mixed, moderate F31.62 [facility] [address] [facility] [id number] [address] [place] [id number] Dec, Bipolar I disorder, most rec ent episode (or current) mixed, moderate F31.62 [facility] [address] [id number] [address] [place] [id number] Dec, Chronic pain G89.29 [facility] [address] [facility] [id number] [address] [place] [id number] Dec, Bipolar I disorder, most rec ent episode (or current) mixed, moderate F31.62 [facility] [address] [facility] [id number] [address] [place] [id number] Dec, Diabetes E11.9 ; Essential h ypertension I10 ; Chronic pain G89.29 and Morbid obesity E66.01 [facility] [address] [facility] [id number] [address] [place] [id number] Dec, [facility] [address] [facility] [id number] [address] [place] [id number] Dec, Bipolar I disorder, most rec ent episode (or current) mixed, moderate F31.62 [facility] [address] [facility] [id number] [address] [place] [id number] Dec, Bipolar I disorder, most rec ent episode (or current) mixed, moderate F31.62 [facility] [address] [facility] [id number] [address] [place] [id number] Nov, Chronic pain G89.29 [facility] [address] [facility] [id number] [address] [place] [id number] Nov, Bipolar I disorder, most rec ent episode (or current) mixed, moderate F31.62 [facility] [address] [id number] [address] [place] [id number] Nov, [facility] [address] [facility] [id number] [address] [place] [id number] Nov, Bipolar I disorder, most rec ent episode (or current) mixed, moderate F31.62 [facility] [address] [facility] [id number] [address] [place] [id number] Nov, Bipolar I disorder, most rec ent episode (or current) mixed, moderate F31.62 [facility] [address] [facility] [id number] [address] [place] [id number] Nov, [facility] [address] [facility] [id number] [address] [place] [phone] Nov, [facility] [address] [facility] [id number] [address] [place] [id number] Nov, [facility] [address] [facility] [id number] [address] [place] [id number] Oct, Chronic pain G89.29 [facility] [address] [place] [id number] [address] [place] [id number] Oct, Bipolar I disorder, most rec ent episode (or current) mixed, moderate F31.62 [facility] [address] [place] [id number] [address] [place] [id number] Oct, [facility] [address] [place] [id number] [address] [place] [id number] Oct, Chronic pain G89.29 ; Diabet es E11.9 ; Anxiety F41.9 and 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 [facility] [address] [place] [id number] [address] [place] [id number] Oct, [facility] [address] [place] [id number] [address] [place] [id number] Oct, Diabetes E11.9 [facility] [address] [facility] [id number] [address] [place] [id number] Oct, Bipolar I disorder, most rec ent episode (or current) mixed, moderate F31.62 [facility] [address] [facility] [id number] [address] [place] [id number] Sep, Chronic pain G89.29 [facility] [address] [place] [id number] [address] [place] [id number] Sep, Chronic pain G89.29 [facility] [address] [id number] [address] [place] [id number] Aug, Chronic pain G89.29 [facility] [address] [id number] [address] [place] [id number] Jul, [facility] [address] [facility] [id number] [address] [place] [id number] Jul, Diabetes E11.9 [facility] [address] [id number] [address] [place] [id number] Jul, Chronic pain G89.29 [facility] [address] [facility] [id number] [address] [place] [id number] Jul, Bipolar I disorder, most rec ent episode (or current) mixed, moderate F31.62 [facility] [address] [facility] [id number] [address] [place] [id number] Jun, Bipolar I disorder, most rec ent episode (or current) mixed, moderate F31.62 [facility] [address] [facility] [id number] [address] [place] [id number] Jun, [facility] [address] [facility] [id number] [address] [place] [id number] Jun, Bipolar I disorder, most rec ent episode (or current) mixed, moderate F31.62 [facility] [address] [facility] [id number] [address] [place] [id number] 30 May, 2016 Insomnia, unspecified type G 47.00 [facility] [address] [id number] [address] [place] [id number] May, Bipolar I disorder, most rec ent episode (or current) mixed, moderate F31.62 [facility] [address] [facility] [id number] [address] [place] [id number] 14 May, 2016 [facility] [address] [facility] [id number] [address] [place] [id number] May, Bipolar I disorder, most rec ent episode (or current) mixed, moderate F31.62 [facility] [address] [facility] [id number] [address] [place] [id number] May, Diabetes E11.9 and Essential hypertension I10 [facility] [address] [facility] [id number] [address] [place] [id number] Apr, Chronic pain G89.29 [place] [address] [facility] [id number] [address] [place] [id number] Apr, Bipolar I disorder, most rec ent episode (or current) mixed, moderate F31.62 [place] [address] [facility] [id number] [address] [place] [id number] Apr, [place] [address] [facility] [id number] [address] [place] [id number] Apr, [place] [address] [place] [id number] [address] [place] [id number] Mar, Chronic pain G89.29 ; Headac he, unspecified headache type R51 ; Neuropathy G62.9 ; Pain of right hip joint M25.551 and Essential hypertension I10 [place] [address] [facility] [id number] [address] [place] [id number] Mar, Chronic pain G89.29 [place] [address] [facility] [id number] [address] [place] [id number] Mar, Bipolar I disorder, most rec ent episode (or current) mixed, moderate F31.62 [place] [address] [facility] [id number] [address] [place] [id number] Feb, Bipolar I disorder, most rec ent episode (or current) mixed, moderate F31.62 and Insomnia, unspecified type G47.00 [place] [address] [facility] [id number] [address] [place] [id number] Feb, Chronic pain G89.29 [place] [address] [facility] [id number] [address] [place] [id number] Feb, Bipolar I disorder, most rec ent episode (or current) mixed, moderate F31.62 [facility] [address] [id number] [address] [place] [id number] January, Bipolar I disorder, most rec ent episode (or current) mixed, moderate F31.62 [facility] [address] [id number] [address] [place] [id number] January, Chronic pain G89.29 [facility] [address] [id number] [address] [place] [id number] January, Chronic pain G89.29 and Esse ntial hypertension I10 [facility] [address] [id number] [address] [place] [id number] January, Bipolar I disorder, most rec ent episode (or current) mixed, moderate F31.62 [facility] [address] [id number] [address] [place] [id number] Dec, [facility] [address] [id number] [address] [place] [id number] Dec, [facility] [address] [id number] [address] [place] [phone] Dec, [facility] [address] [id number] [address] [place] [id number] Dec, [facility] [address] [id number] [address] [place] [id number] Nov, Reactive airway disease J45. 909 [facility] [address] [id number] [address] [place] [id number] Nov, [facility] [address] [id number] [address] [place] [phone] Nov, [facility] [address] [id number] [address] [place] [phone] Nov, [facility] [address] [facility] [id number] [address] [place] [id number] Nov, [place] [address] [id number] Nov, Onychomycosis B35.1 ; Hammer toe M20.40 ; [place] or callus L84 and DM neuro manif type II E11.49 [place] [address] [id number] Nov, Chronic pain G89.29 ; Leukoc ytosis D72.829 and Diabetes E11.9 [place] [address] [id number] Nov, [place] [address] [address] Oct, Bronchitis J40 [place] [address] [id number] Oct, [place] [address] [id number] Oct, [place] [address] [id number] Oct, Mastoiditis, unspecified lat erality H70.90 and Type 2 diabetes mellitus with complication E11.[address] [address] Sep, [address] [address] Sep, Dysuria R30.0 ; Cough R05 ; Benign prostatic hyperplasia with lower urinary tract symptoms, unspecified morphology N40.1 ; Hypokalemia E87.6 and Eustachian tube dysfunction, unspecified laterality H69.[address] [id number] Sep, Moderate mixed bipolar I dis order F31.[address] [address] Sep, Hypokalemia E87.6 [facility] [address] [facility] [id number] [address] [place] [id number] Sep, [facility] [address] [facility] [id number] [address] [place] [id number] Sep, Upper respiratory tract infe ction, unspecified type J06.9 [facility] [address] [facility] [id number] [address] [place] [phone] Aug, [facility] [address] [id number] [address] [place] [id number] Aug, Dysuria R30.0 [facility] [address] [facility] [id number] [address] [place] [id number] Aug, [facility] [address] [facility] [id number] [address] [place] [id number] Jul, [facility] [address] [facility] [id number] [address] [place] [id number] Jul, [facility] [address] [facility] [id number] [address] [place] [phone] Jul, [facility] [address] [facility] [id number] [address] [place] [phone] Jul, [facility] [address] [facility] [id number] [address] [place] [id number] Jun, [facility] [address] [facility] [id number] [address] [place] [phone] Jun, [facility] [address] [facility] [id number] [address] [place] [id number] Jun, [facility] [address] [facility] [id number] [address] [place] [phone] May, [facility] [address] [facility] [id number] [address] [place] [id number] May, Bipolar I disorder, most rec ent episode (or current) mixed, moderate 296.62 [facility] [address] [facility] [id number] [address] [place] [id number] May, [facility] [address] [facility] [id number] [address] [place] [id number] May, Bipolar I disorder, most rec ent episode (or current) mixed, moderate 296.62 and Major depressive disorder, recurrent episode, severe, specified as with psychotic behavior 296.34 [facility] [address] [facility] [id number] [address] [place] [id number] May, Bipolar I disorder, most rec ent episode (or current) mixed, moderate 296.62 [facility] [address] [facility] [id number] [address] [place] [id number] May, [facility] [address] [place] [id number] [address] [place] [id number] Apr, [facility] [address] [facility] [id number] [address] [place] [id number] Apr, [facility] [address] [place] [id number] [address] [place] [id number] Apr, Unspecified disorder of kidn ey and ureter 593.9 and Diabetes mellitus type 2, uncontrolled 250.02 [facility] [address] [facility] [id number] [address] [place] [id number] Apr, [facility] [address] [facility] [id number] [address] [place] [phone] Apr, [facility] [address] [facility] [id number] [address] [place] [phone] Apr, [facility] [address] [facility] [id number] [address] [place] [phone] Apr, [facility] [address] [facility] [id number] [address] [place] [id number] Apr, Diabetes mellitus type II, u ncontrolled 250.02 [facility] [address] [facility] [id number] [address] [place] [id number] Apr, [facility] [address] [facility] [id number] [address] [place] [phone] Mar, [facility] [address] [facility] [id number] [address] [place] [phone] Mar, [facility] [address] [facility] [id number] [address] [place] [id number] Mar, [facility] [address] [facility] [id number] [address] [place] [id number] Mar, Major depressive disorder, r ecurrent episode, severe, specified as with psychotic behavior 296.34 and Bipolar I disorder, most recent episode (or current) mixed, moderate 296.62 [facility] [address] [place] [id number] [address] [place] [id number] Mar, Diabetes 250.00 ; Anuria 788 .5 ; Nausea and vomiting 787.01 and Diarrhea 787.91 [facility] [address] [facility] [id number] [address] [place] [id number] Mar, Diabetes 250.00 [facility] [address] [facility] [id number] [address] [place] [id number] Mar, [facility] [address] [facility] [id number] [address] [place] [id number] Mar, Diabetes 250.00 [facility] [address] [facility] [id number] [address] [place] [id number] Mar, [facility] [address] [facility] [id number] [address] [place] [id number] Mar, [facility] [address] [facility] [id number] [address] [place] [phone] Mar, [facility] [address] [facility] [id number] [address] [place] [phone] Mar, [facility] [address] [facility] [id number] [address] [place] [id number] Mar, Bipolar I disorder, most rec ent episode (or current) mixed, moderate 296.62 and Major depressive disorder, recurrent episode, severe, specified as with psychotic behavior 296.[address] [id number] Mar, Magnesium deficiency 275.2 ; Hypokalemia 276.8 ; Nausea & vomiting 787.01 and Diabetes mellitus type 2, uncontrolled 250.[address] [id number] Feb, [address] [id number] Feb, Bipolar I disorder, most rec ent episode (or current) mixed, moderate 296.[address] [address] Feb, Nausea and vomiting 787.01 ; Left elbow pain 719.42 ; Anuria 788.5 and Diabetes 250.[address] [address] Feb, [address] [address] Feb, Hypopotassemia 276.8 and Hyp okalemia 276.[address] [address] Feb, Hypopotassemia 276.8 and Hyp okalemia 276.[address] [address] Feb, Seborrheic keratoses 702.[address] [address] Feb, Hypopotassemia 276.8 and Low magnesium levels 275.[address] [address] January, [address] [address] January, [facility] [address] [id number] [address] [place] [id number] January, [facility] [address] [id number] [address] [place] [id number] January, Scalp lesion 709.9 [facility] [address] [id number] [address] [place] [id number] January, [facility] [address] [id number] [address] [place] [id number] Dec, Tear of medial cartilage or meniscus of knee, current 836.0 and 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 [facility] [address] [id number] [address] [place] [id number] Dec, [facility] [address] [id number] [address] [place] [phone] Dec, [facility] [address] [id number] [address] [place] [id number] Dec, Squamous cell carcinoma, 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 [facility] [address] [id number] [address] [place] [id number] Dec, [facility] [address] [id number] [address] [place] [id number] Dec, [facility] [address] [id number] [address] [place] [phone] Nov, [facility] [address] [id number] [address] [place] [phone] Nov, [facility] [address] [id number] [address] [place] [phone] Nov, [facility] [address] [id number] [address] [place] [id number] Nov, [facility] [address] [id number] [address] [place] [phone] Nov, [facility] [address] [id number] [address] [place] [address], [place] [phone] 09 Nov, 2014 [facility] [address] [id number] [address] [place] [address], [place] [phone] Nov, 2014 [facility] [address] [id number] [address] [place] [address], [place] [phone] Nov, 2014 [facility] [address] [id number] [address] [place] [address], [place] [phone] Nov, 2014 [facility] [address] [id number] [address] [place] [address], [place] [id number] Nov, 2014 [facility] [address] [id number] [address] [place] [address], [place] [phone] Nov, 2014 [facility] [address] [id number] [address] [place] [address], [place] [phone] Nov, [facility] [address] [id number] [address] [place] [address], [place] [address] Oct, 2014 [facility] [address] [id number] [address] [place] [address], [place] [address] Oct, 2014 [facility] [address] [id number] [address] [place] [address], [place] [id number] Oct, 2014 [facility] [address] [id number] [address] [place] [id number] Oct, 2014 [facility] [address] [id number] [address] [place] [address], [place] [address] Oct, 2014 [facility] [address] [id number] [address] [place] [id number] Oct, 2014 [facility] [address] [id number] [address] [place] [address], [place] [address] Oct, 2014 [facility] [address] [id number] [address] [place] [phone] Oct, 2014 [facility] [address] [id number] [address] [place] [id number] Oct, [facility] [address] [id number] [address] [place] [address], [place] [address] Sep, [facility] [address] [id number] [address] [place] [address], [place] [address] Sep, [facility] [address] [id number] [address] [place] [address], [place] [address] Sep, [facility] [address] [id number] [address] [place] [address], [place] [address] Sep, [facility] [address] [id number] [address] [place] [address], [place] [address] Sep, [facility] [address] [id number] [address] [place] [address], [place] [address] Sep, [facility] [address] [id number] [address] [place] [address], [place] [address] Sep, [facility] [address] [id number] [address] [place] [address], [place] [address] Sep, [facility] [address] [id number] [address] [place] [address], [place] [address] Sep, [facility] [address] [id number] [address] [place] [address], [place] [address] Sep, [facility] [address] [id number] [address] [place] [id number] Sep, [facility] [address] [id number] [address] [place] [id number] Sep, [facility] [address] [id number] [address] [place] [address], [place] [address] Sep, [facility] [address] [id number] [address] [place] [id number] Sep, [facility] [address] [id number] [address] [place] [address], [place] [address] Sep, [facility] [address] [id number] [address] [place] [address], [place] [address] Sep, [facility] [address] [id number] [address] [place] [address], [place] [address] Aug, [facility] [address] [id number] [address] [place] [address], [place] [address] Aug, [facility] [address] [id number] [address] [place] [address], [place] [address] Aug, [facility] [address] [id number] [address] [place] [address], [place] [address] Aug, [facility] [address] [id number] [address] [place] [address], [place] [address] Aug, [facility] [address] [id number] [address] [place] [address], [place] [address] Aug, [facility] [address] [id number] [address] [place] [address], [place] [address] Aug, [facility] [address] [id number] [address] [place] [address], [place] [address] Aug, [facility] [address] [id number] [address] [place] [address], [place] [address] Aug, [facility] [address] [id number] [address] [place] [address], [place] [address] Aug, [facility] [address] [id number] [address] [place] [address], [place] [address] Aug, [facility] [address] [place] [id number] Aug, [facility] [address] [id number] [address] [place] [address], [place] [address] Aug, [facility] [address] [id number] [address] [place] [address], [place] [address] Aug, [facility] [address] [id number] [address] [place] [address], [place] [address] Aug, [facility] [address] [id number] [facility] [place] [address] Aug, [facility] [address] [id number] [address] [place] [address], [place] [address] Aug, [facility] [address] [id number] [address] [place] [address], [place] [address] Aug, [facility] [address] [id number] [address] [place] [address], [place] [address] Aug, [facility] [address] [id number] [address] [place] [address], [place] [address] Aug, [facility] [address] [id number] [address] [place] [address], [place] [address] Aug, [facility] [address] [id number] [address] [place] [address], [place] [address] Aug, [facility] [address] [id number] [address] [place] [address], [place] [address] Aug, [facility] [address] [id number] [address] [place] [address], [place] [address] Aug, [facility] [address] [id number] [address] [place] [address], [place] [address] Aug, [facility] [address] [id number] [address] [place] [address], [place] [address] Aug, [facility] [address] [id number] [address] [place] [address], [place] [address] Aug, [facility] [address] [id number] [address] [place] [address], [place] [address] Aug, [facility] [address] [id number] [address] [place] [address], [place] [address] Aug, [facility] [address] [id number] [address] [place] [address], [place] [address] Aug, [facility] [address] [id number] [address] [place] [address] [address] Jul, [facility] [address] [id number] [address] [place] [address], [place] [address] Jul, [facility] [address] [id number] [address] [place] [address], [place] [address] Jul, [facility] [address] [id number] [address] [place] [address], [place] [address] Jul, [facility] [address] [id number] [address] [place] [address], [place] [address] Jul, [facility] [address] [id number] [address] [place] [address], [place] [address] Jul, [facility] [address] [id number] [address] [place] [address], [place] [address] Jul, [facility] [address] [id number] [address] [place] [address], [place] [address] Jul, [facility] [address] [id number] [address] [place] [address], [place] [address] Jul, [facility] [address] [id number] [address] [place] [address], [place] [address] Jul, [facility] [address] [id number] [address] [place] [address], [place] [address] Jun, [facility] [address] [id number] [address] [place] [address], [place] [address] Jun, [facility] [address] [id number] [address] [place] [address] 16 Jun, 2014 [facility] [address] [id number] [address] [place] [address], [place] [address] 16 Jun, 2014 [facility] [address] [id number] [address] [place] [address], [place] [address] 15 Jun, 2014 [facility] [address] [id number] [address] [place] [address] 15 Jun, 2014 [facility] [address] [id number] [address] [place] [address], [place] [address] 05 Jun, 2014 [facility] [address] [id number] [address] [place] [address], [place] [address] 05 Jun, 2014 [facility] [address] [id number] [address] [place] [address], [place] [address] Jun, [facility] [address] [id number] [address] [place] [address], [place] [address] Jun, [facility] [address] [id number] [address] [place] [address], [place] [address] 29 May, 2013 [facility] [address] [id number] [address] [place] [address], [place] [address] 29 Sep, 2013 [facility] [address] [id number] [address] [place] [address], [place] [address] 26 May, 2013 [facility] [address] [id number] [address] [place] [address], [place] [address] 26 May, 2013 [facility] [address] [id number] [address] [place] [address], [place] [address] 17 Sep, 2013 [facility] [address] [id number] [address] [place] [address], [place] [address] 17 May, 2013 [facility] [address] [id number] [address] [place] [address], [place] [address] 15 May, 2013 [facility] [address] [id number] [address] [place] [address], [place] [address] 15 Sep, 2013 [facility] [address] [id number] [address] [place] [address], [place] [address] 15 Sep, 2013 [facility] [address] [id number] [address] [place] [address], [place] [address] 15 Sep, 2013 [facility] [address] [id number] [address] [place] [address], [place] [address] 10 May, 2013 [facility] [address] [id number] [address] [place] [address], [place] [address] May, [facility] [address] [id number] [facility] [address] May, 2013 [facility] [address] [id number] [facility] [place] [address] May, [facility] [address] [id number] [address] [place] [address], [place] [address] May, [facility] [address] [id number] [address] [place] [address], [place] [address] May, [facility] [address] [id number] [address] [place] [address], [place] [address] Apr, [facility] [address] [id number] [address] [place] [address], [place] [address] Apr, [facility] [address] [id number] [address] [place] [address], [place] [address] Apr, [facility] [address] [id number] [address] [place] [address], [place] [address] Apr, [facility] [address] [id number] [address] [place] [address], [place] [address] Apr, [facility] [address] [id number] [address] [place] [address], [place] [address] Apr, [facility] [address] [id number] [address] [place] [address], [place] [address] Apr, [facility] [address] [id number] [address] [place] [address], [place] [address] Apr, [facility] [address] [id number] [address] [place] [address], [place] [address] Apr, [facility] [address] [id number] [address] [place] [address], [place] [address] Apr, [facility] [address] [id number] [address] [place] [address], [place] [address] Apr, [facility] [address] [id number] [address] [place] [address], [place] [address] Apr, [facility] [address] [id number] [facility] [address] Apr, [facility] [address] [id number] [address] [place] [address], [place] [address] Apr, [facility] [address] [id number] [address] [place] [address], [place] [address] Apr, [facility] [address] [id number] [address] [place] [address], [place] [address] Mar, [facility] [address] [id number] [address] [place] [address], [place] [address] Mar, [facility] [address] [id number] [address] [place] [address], [place] [address] Mar, [facility] [address] [id number] [address] [place] [address], [place] [address] Mar, [facility] [address] [id number] [address] [place] [address], [place] [address] Mar, [facility] [address] [id number] [address] [place] [address], [place] [address] Mar, [facility] [address] [id number] [address] [place] [address], [place] [address] Mar, [facility] [address] [id number] [address] [place] [address], [place] [address] Mar, [facility] [address] [id number] [address] [place] [address], [place] [address] Mar, [facility] [address] [id number] [address] [place] [address], [place] [address] Mar, [facility] [address] [id number] [address] [place] [address], [place] [address] Mar, [facility] [address] [id number] [address] [place] [address], [place] [address] Mar, [facility] [address] [id number] [facility] [place] [address] Mar, 2013 [facility] [address] [id number] [facility] [address] Mar, 2013 [facility] [address] [id number] [facility] [place] [address] Mar, 2013 [facility] [address] [id number] [address] [place] [address], [place] [address] Mar, 2013 [facility] [address] [id number] [address] [place] [address], [place] [address] Mar, 2013 [facility] [address] [id number] [address] [place] [address], [place] [address] Mar, [facility] [address] [id number] [address] [place] [address], [place] [address] Feb, [facility] [address] [id number] [address] [place] [address], [place] [address] Feb, [facility] [address] [id number] [address] [place] [address], [place] [address] Feb, [facility] [address] [id number] [address] [place] [address], [place] [address] Feb, [facility] [address] [id number] [address] [place] [address], [place] [address] Feb, [facility] [address] [id number] [address] [place] [address], [place] [address] Feb, [facility] [address] [id number] [address] [place] [address], [place] [address] Feb, [facility] [address] [id number] [address] [place] [address], [place] [address] Feb, [facility] [address] [id number] [address] [place] [address], [place] [address] Feb, [facility] [address] [id number] [address] [place] [address], [place] [address] Feb, [facility] [address] [id number] [facility] [address] Feb, [facility] [address] [id number] [address] [place] [address], [place] [address] Feb, [facility] [address] [id number] [address] [place] [address], [place] [address] Feb, [facility] [address] [id number] [address] [place] [address], [place] [address] Feb, [facility] [address] [id number] [address] [place] [address], [place] [address] January, [facility] [address] [id number] [address] [place] [address], [place] [address] January, [facility] [address] [id number] [address] [place] [address], [place] [address] January, [facility] [address] [id number] [address] [place] [address], [place] [address] January, [facility] [address] [id number] [address] [place] [address], [place] [address] January, [facility] [address] [id number] [address] [place] [address], [place] [address] January, [facility] [address] [id number] [address] [place] [address], [place] [address] January, [facility] [address] [id number] [address] [place] [address], [place] [address] January, [facility] [address] [id number] [address] [place] [address], [place] [address] January, [facility] [address] [id number] [address] [place] [address], [place] [address] January, [facility] [address] [id number] [address] [place] [address], [place] [address] January, [facility] [address] [id number] [address] [place] [address], [place] [address] January, [facility] [address] [id number] [facility] [address] January, [facility] [address] [id number] [address] [place] [address], [place] [address] January, [facility] [address] [id number] [address] [place] [address], [place] [address] Dec, [facility] [address] [id number] [address] [place] [address], [place] [address] Dec, [facility] [address] [id number] [address] [place] [address], [place] [address] Dec, [facility] [address] [id number] [address] [place] [address], [place] [address] Dec, [facility] [address] [id number] [address] [place] [address], [place] [address] Dec, [facility] [address] [id number] [address] [place] [address], [place] [address] Dec, [facility] [address] [id number] [address] [place] [address], [place] [address] Dec, [facility] [address] [id number] [address] [place] [address], [place] [address] Dec, [facility] [address] [id number] [address] [place] [address], [place] [address] Dec, [facility] [address] [id number] [address] [place] [address], [place] [address] Dec, [facility] [address] [id number] [address] [place] [address], [place] [address] Nov, [facility] [address] [id number] [address] [place] [address], [place] [address] Nov, [facility] [address] [id number] [address] [place] [address], [place] [address] Nov, [facility] [address] [id number] [facility] [address] 10 Nov, 2013 [facility] [address] [id number] [address] [place] [address], [place] [address] 08 Nov, 2013 [facility] [address] [id number] [facility] [address] 08 Nov, 2013 [facility] [address] [id number] [address] [place] [address], [place] [address] Nov, [facility] [address] [id number] [address] [place] [address], [place] [address] Nov, [facility] [address] [id number] [address] [place] [address], [place] [address] Nov, [facility] [address] [id number] [address] [place] [address], [place] [address] Nov, [facility] [address] [id number] [address] [place] [address], [place] [address] Oct, [facility] [address] [id number] [address] [place] [address], [place] [address] Oct, [facility] [address] [id number] [address] [place] [address], [place] [address] Oct, [facility] [address] [id number] [address] [place] [address], [place] [address] Oct, [facility] [address] [id number] [address] [place] [address], [place] [address] Oct, [facility] [address] [id number] [address] [place] [address], [place] [address] Oct, [facility] [address] [id number] [address] [place] [address], [place] [address] 14 Oct, 2013 [facility] [address] [id number] [address] [place] [address], [place] [address] Oct, [facility] [address] [id number] [address] [place] [address], [place] [address] Oct, [facility] [address] [id number] [address] [place] [address], [place] [address] Oct, [facility] [address] [id number] [address] [place] [address], [place] [address] Oct, [facility] [address] [id number] [address] [place] [address], [place] [address] Oct, [facility] [address] [id number] [address] [place] [address], [place] [address] Oct, [facility] [address] [id number] [address] [place] [address], [place] [address] Oct, [facility] [address] [id number] [address] [place] [address], [place] [address] Sep, [facility] [address] [id number] [address] [place] [address], [place] [address] Sep, [facility] [address] [id number] [address] [place] [address], [place] [address] Sep, [facility] [address] [id number] [address] [place] [address], [place] [address] Sep, [facility] [address] [id number] [address] [place] [address], [place] [address] Sep, [facility] [address] [id number] [address] [place] [address], [place] [address] Sep, [facility] [address] [id number] [address] [place] [address], [place] [address] Sep, [facility] [address] [id number] [address] [place] [address], [place] [address] Sep, [facility] [address] [id number] [address] [place] [address], [place] [address] Sep, [facility] [address] [id number] [address] [place] [address], [place] [address] Sep, [facility] [address] [id number] [address] [place] [address], [place] [address] Aug, [facility] [address] [id number] [address] [place] [address], [place] [address] Aug, [facility] [address] [id number] [address] [place] [address], [place] [address] Jul, [facility] [address] [id number] [address] [place] [address], [place] [address] Jul, [facility] [address] [id number] [address] [place] [address], [place] [address] Jul, [facility] [address] [id number] [address] [place] [address], [place] [address] Jul, [facility] [address] [id number] [address] [place] [address], [place] [address] Jul, [facility] [address] [id number] [address] [place] [address], [place] [address] Jul, [facility] [address] [id number] [address] [place] [address], [place] [address] Jul, [facility] [address] [id number] [address] [place] [address], [place] [address] Jul, [facility] [address] [id number] [address] [place] [address], [place] [address] Jul, [facility] [address] [id number] [address] [place] [phone] Jul, [facility] [address] [id number] [address] [place] [address], [place] [address] Jul, [facility] [address] [id number] [address] [place] [address], [place] [address] Jul, [facility] [address] [id number] [address] [place] [id number] Jul, [facility] [address] [id number] [address] [place] [phone] Jul, [facility] [address] [id number] [address] [place] [id number] Jul, 2012 [facility] [address] [id number] [address] [place] [id number] Jul, 2012 [facility] [address] [id number] [address] [place] [phone] Jul, 2012 [facility] [address] [id number] [address] [place] [id number] Jul, 2012 [facility] [address] [id number] [address] [place] [address], [place] [address] Jul, [facility] [address] [id number] [address] [place] [phone] Jun, 2012 [facility] [address] [id number] [address] [place] [phone] Jun, 2012 [facility] [address] [id number] [address] [place] [phone] Jun, 2012 [facility] [address] [id number] [address] [place] [id number] Jun, 2012 [facility] [address] [id number] [address] [place] [phone] Jun, 2012 [facility] [address] [id number] [address] [place] [phone] Jun, 2012 [facility] [address] [id number] [address] [place] [phone] Jun, 2012 [facility] [address] [id number] [address] [place] [phone] Jun, 2012 [facility] [address] [id number] [address] [place] [phone] Jun, 2012 [facility] [address] [id number] [address] [place] [phone] Jun, 2012 [facility] [address] [id number] [address] [place] [address], [place] [address] Jun, [facility] [address] [id number] [address] [place] [address], [place] [address] May, [facility] [address] [id number] [address] [place] [address], [place] [address] May, [facility] [address] [id number] [address] [place] [address], [place] [address] May, 2012 [facility] [address] [id number] [address] [place] [address], [place] [address] 17 May, 2012 [facility] [address] [id number] [address] [place] [address], [place] [address] May, [facility] [address] [id number] [address] [place] [address], [place] [address] May, [facility] [address] [id number] [address] [place] [address], [place] [address] May, [facility] [address] [id number] [address] [place] [address], [place] [address] May, [facility] [address] [id number] [address] [place] [address], [place] [address] Apr, [facility] [address] [id number] [address] [place] [address], [place] [address] Apr, [facility] [address] [id number] [address] [place] [address], [place] [address] Apr, [facility] [address] [id number] [address] [place] [address], [place] [address] Apr, [facility] [address] [id number] [address] [place] [address], [place] [address] Apr, [facility] [address] [id number] [address] [place] [address], [place] [address] Mar, [facility] [address] [id number] [address] [place] [address], [place] [address] Mar, [facility] [address] [id number] [address] [place] [address], [place] [address] Mar, [facility] [address] [id number] [address] [place] [address], [place] [address] Mar, [facility] [address] [id number] [address] [place] [address], [place] [address] Mar, [facility] [address] [id number] [address] [place] [address], [place] [address] Mar, [facility] [address] [id number] [address] [place] [address], [place] [address] Mar, [facility] [address] [id number] [address] [place] [address], [place] [address] Mar, [facility] [address] [id number] [address] [place] [address], [place] [address] Feb, [facility] [address] [id number] [address] [place] [address], [place] [address] Feb, [facility] [address] [id number] [address] [place] [address], [place] [address] January, [facility] [address] [id number] [address] [place] [address], [place] [address] January, [facility] [address] [id number] [address] [place] [address], [place] [address] Dec, [facility] [address] [id number] [address] [place] [address], [place] [address] Dec, [facility] [address] [id number] [address] [place] [address], [place] [address] Nov, [facility] [facility] [address] [id number] [address] [place] [address], [place] [address] Nov, [facility] [address] [id number] [address] [place] [address], [place] [address] Nov, [facility] [address] [id number] [address] [place] [address], [place] [address] 14 Nov, 2012 [facility] [address] [id number] [address] [place] [address], [place] [address] Oct, [facility] [address] [id number] [address] [place] [address], [place] [address] Oct, [facility] [address] [id number] [address] [place] [address], [place] [address] Oct, 2012 [facility] [address] [id number] [address] [place] [address], [place] [address] 26 Oct, 2012 [facility] [address] [id number] [address] [place] [address], [place] [address] 16 Oct, 2012 [facility] [address] [id number] [address] [place] [address], [place] [address] 14 Oct, 2012 [facility] [address] [id number] [address] [place] [address], [place] [address] 08 Oct, 2012 [facility] [address] [id number] [address] [place] [address], [place] [address] 07 Oct, 2012 [facility] [address] [id number] [address] [place] [address], [place] [address] 03 Oct, 2012 [facility] [address] [id number] [address] [place] [address], [place] [address] Sep, [facility] [address] [id number] [address] [place] [address], [place] [address] Sep, [facility] [address] [id number] [address] [place] [address], [place] [address] Sep, [facility] [address] [id number] [address] [place] [address], [place] [address] Sep, [facility] [address] [id number] [address] [place] [address], [place] [address] Sep, [facility] [address] [id number] [address] [place] [address], [place] [address] Sep, [facility] [address] [id number] [address] [place] [address], [place] [address] Sep, [facility] [address] [id number] [address] [place] [address], [place] [address] Sep, [facility] [address] [id number] [address] [place] [address], [place] [address] Aug, [facility] [address] [id number] [address] [place] [address], [place] [address] Aug, [facility] [address] [id number] [address] [place] [address], [place] [address] Aug, [facility] [address] [id number] [address] [place] [address], [place] [address] Aug, [facility] [address] [id number] [address] [place] [address], [place] [address] Aug, [facility] [address] [id number] [address] [place] [address], [place] [address] Aug, [facility] [address] [id number] [address] [place] [address], [place] [address] Aug, [facility] [address] [id number] [address] [place] [address], [place] [address] Aug, [facility] [address] [id number] [address] [place] [address], [place] [address] Jul, [facility] [address] [id number] [address] [place] [address], [place] [address] Jul, [facility] [address] [id number] [address] [place] [address], [place] [address] Jul, [facility] [address] [id number] [address] [place] [address], [place] [address] Jul, [facility] [address] [id number] [address] [place] [address], [place] [address] Jul, [facility] [address] [id number] [address] [place] [address], [place] [address] Jul, [facility] [address] [id number] [address] [place] [address], [place] [address] Jun, [facility] [address] [id number] [address] [place] [address], [place] [address] Jun, [facility] [address] [id number] [address] [place] [address], [place] [address] Jun, [facility] [address] [id number] [address] [place] [address], [place] [address] Jun, [facility] [address] [id number] [address] [place] [address], [place] [address] Jun, [facility] [address] [id number] [address] [place] [address], [place] [address] Jun, [facility] [address] [id number] [address] [place] [address], [place] [address] Jun, [facility] [address] [id number] [address] [place] [address], [place] [address] Jun, [facility] [address] [id number] [address] [place] [address], [place] [address] Jun, [facility] [address] [id number] [address] [place] [address], [place] [address] 26 May, 2012 [facility] [address] [id number] [address] [place] [address], [place] [address] 24 May, 2012 [facility] [address] [id number] [address] [place] [address], [place] [address] 18 May, 2012 [facility] [address] [id number] [address] [place] [address], [place] [address] Apr, [facility] [address] [id number] [address] [place] [address], [place] [address] Apr, [facility] [address] [id number] [address] [place] [address], [place] [address] Apr, [facility] [address] [id number] [address] [place] [address], [place] [address] Apr, [facility] [address] [id number] [address] [place] [address], [place] [address] Apr, [facility] [address] [id number] [address] [place] [address], [place] [address] Apr, [facility] [address] [id number] [address] [place] [address], [place] [address] Mar, [facility] [address] [id number] [address] [place] [address], [place] [address] Mar, [facility] [address] [id number] [address] [place] [address], [place] [address] Mar, [facility] [address] [id number] [address] [place] [address], [place] [address] Mar, [facility] [address] [id number] [address] [place] [address], [place] [address] Feb, [facility] [address] [id number] [address] [place] [address], [place] [address] Feb, [facility] [address] [id number] [address] [place] [address], [place] [address] Feb, [facility] [address] [id number] [address] [place] [address], [place] [address] Feb, [facility] [address] [id number] [address] [place] [address], [place] [address] Feb, [facility] [address] [id number] [address] [place] [address], [place] [address] January, [facility] [address] [id number] [address] [place] [address], [place] [address] January, [facility] [address] [id number] [address] [place] [address], [place] [address] January, [facility] [address] [id number] [address] [place] [address], [place] [address] January, [facility] [address] [id number] [address] [place] [address], [place] [address] January, [facility] [address] [id number] [address] [place] [address], [place] [address] January, [facility] [address] [id number] [address] [place] [address], [place] [address] Dec, [facility] [address] [id number] [address] [place] [address], [place] [address] Dec, [facility] [address] [id number] [address] [place] [address], [place] [address] Dec, [facility] [address] [id number] [address] [place] [address], [place] [address] Dec, [facility] [address] [id number] [address] [place] [address], [place] [address] Dec, [facility] [address] [id number] [address] [place] [address], [place] [address] Nov, [facility] [address] [id number] [address] [place] [address], [place] [address] Nov, [facility] [address] [id number] [address] [place] [address], [place] [address] Nov, [facility] [address] [id number] [address] [place] [address], [place] [address] Nov, [facility] [address] [id number] [address] [place] [address], [place] [address] Oct, [facility] [address] [id number] [address] [place] [address], [place] [address] Oct, [facility] [address] [id number] [address] [place] [address], [place] [address] 24 Oct, 2011 [facility] [address] [id number] [address] [place] [address], [place] [address] 13 Oct, 2011 [facility] [address] [id number] [address] [place] [address], [place] [address] Oct, [facility] [address] [id number] [address] [place] [address], [place] [address] Sep, [facility] [address] [id number] [address] [place] [address], [place] [address] Sep, [facility] [address] [id number] [address] [place] [address], [place] [address] Sep, [facility] [address] [id number] [address] [place] [address], [place] [address] Sep, [facility] [address] [id number] [address] [place] [address], [place] [address] Sep, [facility] [address] [id number] [address] [place] [address], [place] [address] Sep, [facility] [address] [id number] [address] [place] [address], [place] [address] Aug, [facility] [address] [id number] [address] [place] [address], [place] [address] Aug, [facility] [address] [id number] [address] [place] [address], [place] [address] Aug, [facility] [address] [id number] [address] [place] [address], [place] [address] Jul, [facility] [address] [id number] [address] [place] [address], [place] [address] Jul, [facility] [address] [id number] [address] [place] [address], [place] [address] Jul, [facility] [address] [id number] [address] [place] [address], [place] [address] Jul, [facility] [address] [id number] [address] [place] [address], [place] [address] Jun, [facility] [address] [id number] [address] [place] [address] [address] 31 Jun, 2011 [facility] [address] [id number] [address] [place] [address], [place] [address] 18 Jun, 2011 [facility] [address] [id number] [address] [place] [address], [place] [address] 10 Jun, 2011 [facility] [address] [id number] [address] [place] [address], [place] [address] 10 Jun, 2011 [facility] [address] [id number] [address] [place] [address], [place] [address] 10 Jun, 2011 [facility] [address] [id number] [address] [place] [address], [place] [address] 11 Mar, 2011 [facility] [address] [id number] [address] [place] [address], [place] [address] 18 Dec, 2010 [facility] [address] [id number] [address] [place] [address], [place] [address] 11 Dec, 2010 [facility] [address] [id number] [address] [place] [address], [place] [address] 18 Nov, 2010 [facility] [address] [id number] [address] [place] [address], [place] [address] 16 Nov, 2010 [facility] [address] [id number] [address] [place] [address], [place] [address] 10 Sep, 2010 [facility] [address] [id number] [address] [place] [address], [place] [address] 31 Aug, 2010 [facility] [address] [id number] [address] [place] [address], [place] [address] 29 Aug, 2010 [facility] [address] [id number] [address] [place] [address], [place] [address] 29 Aug, 2010 [facility] [address] [id number] [address] [place] [address], [place] [address] 29 Aug, 2010 [facility] [address] [id number] [address] [place] [address], [place] [address] 27 Aug, 2010 [facility] [address] [id number] [address] [place] [address], [place] [address] 14 Aug, 2010 [facility] [address] [id number] [address] [place] [address], [place] [address] 08 Aug, 2010 [facility] [address] [id number] [address] [place] [address], [place] [address] 08 Aug, 2010 [facility] [address] [id number] [address] [place] [address], [place] [address] 07 Aug, 2010 [facility] [address] [id number] [address] [place] [address], [place] [address] 06 Aug, 2010 [facility] [address] [id number] [address] [place] [address], [place] [address] 06 Aug, 2010 [facility] [address] [id number] [address] [place] [address], [place] [address] Aug, [facility] [address] [id number] [address] [place] [address], [place] [address] 30 Jul, 2010 [facility] [address] [id number] [address] [place] [address], [place] [address] 30 Jul, 2010 [facility] [address] [id number] [address] [place] [address], [place] [address] 30 Jul, 2010 [facility] [address] [id number] [address] [place] [address], [place] [address] Jul, [facility] [address] [id number] [address] [place] [address], [place] [address] Jul, [facility] [address] [id number] [address] [place] [address] Jul, [facility] [address] [id number] [address] [place] [address], [place] [address] Jun, [facility] [address] [id number] [address] [place] [address] Jun, [facility] [address] [id number] [address] [place] [address] Jun, [facility] [address] [id number] [address] [place] [address], [place] [address] 13 Jun, 2010 [facility] [address] [id number] [address] [place] [address], [place] [address] 16 Apr, 2010 [facility] [address] [id number] [address] [place] [address], [place] [address] Mar, [facility] [address] [id number] [address] [place] [address], [place] [address] 17 Feb, 2010 [facility] [address] [id number] [address] [place] [address], [place] [address] January, [facility] [address] [id number] [address] [place] [address], [place] [address] Dec, [facility] [address] [id number] [address] [place] [address], [place] [address] Nov, [facility] [address] [id number] [address] [place] [address], [place] [address] Aug, [facility] [address] [id number] [address] [place] [address], [place] [address] Aug, [facility] [address] [id number] [address] [place] [address], [place] [address] Aug, [facility] [address] [id number] [address] [place] [address], [place] [address] Jul, [facility] [address] [id number] [address] [place] [address], [place] [address] Jul, [facility] [address] [id number] [address] [place] [address], [place] [address] Jul, [facility] [address] [id number] [address] [place] [address], [place] [address] 30 Jun, 2009 [facility] [address] [id number] [address] [place] [address], [place] [address] 29 Jun, 2009 [facility] [address] [id number] [address] [place] [address] Jun, [facility] [address] [id number] [address] [place] [address] Jun, [facility] [address] [id number] [address] [place] [address] Jun, [facility] [address] [id number] [address] [place] [address] Jun, [facility] [address] [id number] [address] [place] [address] Apr, [facility] [address] [id number] [address] [place] [address] Apr, [facility] [address] [id number] [address] [place] [address] Feb, [facility] [address] [id number] [address] [place] [address] January, [facility] [address] [id number] [address] [place] [address] Dec, IMMUNIZATIONS No Known Immunizations SOCIAL HISTORY Never Assessed REASON FOR VISIT ambien refill PLAN OF CARE VITAL SIGNS MEDICATIONS Medication Instructions Dosage Frequency Start Date End Date Duration S tatus Ambien 10 mg Orally at bedtime as needed for sleep 1 tablet 30 days Active RESULTS No Results PROCEDURES [...] obesity Medical History skin cancer-basal cell R gnosticist (removed ) Medical History Arthritis Medical History [...] leukemia Surgical History arthroscopic knee surgery (Right) 1994, 2004 Surgical History carpal tunnel release (Left) 2000 Surgical History EGD ([facility]) 2009 Surgical History colonoscopy 2010 ([facility]), 2014 ([facility] ) Surgical History heart cath: CAD [...] [facility]'s Hospitalization History hyperkalemia 10/2017 Hospitalization History fluid in lung
[2020-03-01 17:20] LABS: CALCIUM 8.6 MG/DL (8.5-10.1)
--- OUTSIDE RECORDS SUMMARY | 2020-03-01 17:20 | XMS REPORT ---
Author Michele Fuentes Organization [facility] Address [address] [place] [address] Care Team Providers Care Sandwich Hand Name Role Phone TOBY ROSELINE Unavailable PROBLEMS Type Condition ICD9-CM Code SHB14-VN Code Onset Dates Condition S tatus SNOMED Code Problem Cough R05 Active 26832811 Problem Benign prostatic hyperplasia with lower urinary tract symptoms, unspecified morphology N40.1 Active 12965 6007 Problem Eustachian tube dysfunction, unspecified laterality H69.80 Active 08228962 Problem Chronic pain G89.29 Active 6476475 1 Problem DM neuro manif type II E11.49 Active 68124410 Problem Diabetes E11.9 Active 81444842 Problem Leukocytosis D72.829 Active 9737699 06 Problem Falling R29.6 Active 091526822 Problem Pressure ulcer of other site, stage 3 L89.893 Active 289093926 Problem 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 Active 273507563 Problem Eye exam abnormal R93.8 Active 16 5839413 Problem Dysuria R30.0 Active 85139187 Problem Hypokalemia E87.6 Active 14157374 Problem Morbid obesity E66.01 Active 34745 6002 Problem Anxiety F41.9 Active 19610435 Problem Diabetic polyneuropathy associated with type 2 d iabetes mellitus E11.42 Active 90874323 Problem Essential hypertension I10 Active 89660997 Problem Bilateral primary osteoarthritis of knee M17.0 Active 509085561 Problem Polyneuropathy associated with underlying disease G63 Active 089651318 Problem Anemia of chronic illness D63.8 Acti ve 748360414 Problem Lymphocytosis D72.820 Active 692430 09 Problem Retinal edema H35.81 Active 941328 6 Problem Chronic lymphocytic leukemia C91.10 A ctive 30732603 Problem Bipolar disorder, in partial remission, most rec ent episode depressed F31.75 Active 71669532 Problem Pure hypercholesterolemia E78.00 Acti ve 619790287 Problem Primary osteoarthritis of right knee M17.11 Active 949454696519593 Problem Bipolar disorder F31.9 Active 137 77753 Problem Bipolar I disorder, most recent episode (or curr ent) mixed, moderate F31.62 Active 57780231 Problem Chronic diastolic (congestive) heart failure I50.3 2 Active 929876738 Problem Reactive airway disease J45.909 Active 083441741222 Problem Insomnia, unspecified type G47.00 Act sharon 846902524 Problem Other chronic pain G89.29 Active 8 0872208 Problem Other iron deficiency anemia D50.8 A ctive 66031564 Problem Mild cognitive impairment G31.84 Acti ve 010646185 Problem Skin cancer C44.90 Active 63765360 7 ALLERGIES No Information ENCOUNTERS Encounter Location Date Diagnosis [place] [address] [address] Jun, [place] [address] [address] [place] [id number] [place] [address] Jun, [place] [address] [place] [address] May, [place] [address] [address] [place] [id number] [place] [address] Apr, Chronic pain G89.29 and Bipo lar disorder F31.9 [place] [address] [address] [facility] [id number] [address] [place] [address] Mar, Bipolar disorder F31.9 and C hronic pain G89.29 [place] [address] [address] [facility] [id number] [address] [place] [address] Feb, Bipolar disorder F31.9 [place] [address] [address] [facility] [id number] [address] [place] [address] Feb, Cellulitis of right upper ex tremity L03.113 and Skin abrasion T14.8XXA [place] [address] [address] [facility] [id number] [address] [place] [address] Feb, Bipolar disorder, in partial remission, most recent episode depressed F31.75 and Mild cognitive impairment G31.84 [place] [address] [id number] [address] [place] [address] Feb, Chronic pain G89.29 [facility] [address] [id number] [address] [place] [address] Feb, Bipolar disorder, in partial remission, most recent episode depressed F31.75 and Mild cognitive impairment G31.84 [facility] [address] [id number] [address] [place] [address] January, Bipolar disorder, in partial remission, most recent episode depressed F31.75 and Mild cognitive impairment G31.84 [facility] [address] [id number] [address] [place] [address] January, Chronic pain G89.29 and Bipo lar disorder F31.9 [facility] [address] [facility] [id number] [address] [place] [address] January, Bipolar disorder, in partial remission, most recent episode depressed F31.75 and Mild cognitive impairment G31.84 [facility] [address] [id number] [address] [place] [address] Dec, [facility] [address] [id number] [address] [place] [address] Dec, Chronic pain G89.29 and Bipo lar disorder F31.9 [facility] [address] [id number] [address] [place] [address] Dec, Edema of both lower extremit ies R60.0 [facility] [address] [id number] [address] [place] [address] Dec, Bipolar disorder F31.9 [facility] [address] [facility] [id number] [address] [place] [address] Dec, Bipolar disorder, in partial remission, most recent episode depressed F31.75 and Mild cognitive impairment G31.84 [facility] [address] [id number] [address] [place] [address] Nov, [place] [address] [address] [place] [id number] [place] [address] Nov, Chronic pain G89.29 [place] [address] [address] Nov, Bipolar disorder, in partial remission, most recent episode depressed F31.75 and Mild cognitive impairment G31.[address] [address] Nov, Bipolar disorder F31.[address] [address] 04 Nov, [address] [facility] wellness exam Z00.00 ; [...] unspecified morphology N40.1 and Essential hypertension I10 [place] [id number] [place] [address] Oct, Chronic pain G89.29 [place] [id number] [place] [address] Oct, Diabetes E11.9 [place] [address] [place] [id number] [place] [address] Oct, Bipolar I disorder, most rec ent episode (or current) mixed, moderate F31.62 and Mild cognitive impairment G31.84 [place] [id number] [place] [address] Oct, Bipolar I disorder, most rec ent episode (or current) mixed, moderate F31.62 and Mild cognitive impairment G31.84 [place] [id number] [place] [address] Sep, Bipolar I disorder, most rec ent episode (or current) mixed, moderate F31.62 and Mild cognitive impairment G31.84 [facility] [address] [facility] [id number] [address] [place] [address] Sep, [facility] [address] [facility] [id number] [address] [place] [address] Sep, Diabetes E11.9 ; Hypoxia R09 .02 ; Hyperglycemia R73.9 ; Therapeutic drug monitoring Z51.81 ; BMI 50.0-59.9, adult Z68.43 and Skin cancer C44.90 [place] [address] [address] [facility] [id number] [address] [place] [address] Sep, Chronic pain G89.29 [place] [address] [address] [place] [id number] [address] [place] [address] Sep, Bipolar I disorder, most rec ent episode (or current) mixed, moderate F31.62 [place] [address] [facility] [id number] [address] [place] [address] Sep, [place] [address] [address] [facility] [id number] [address] [place] [address] Sep, [facility] [address] [facility] [id number] [address] [place] [address] Aug, Chronic pain G89.29 [facility] [address] [facility] [id number] [address] [place] [address] Aug, Bipolar I disorder, most rec ent episode (or current) mixed, moderate F31.62 [facility] [address] [facility] [id number] [address] [place] [address] Aug, Bipolar I disorder, most rec ent episode (or current) mixed, moderate F31.62 and Mild cognitive impairment G31.84 [place] [address] [facility] [id number] [address] [place] [address] Jul, [facility] [address] [facility] [id number] [address] [place] [address] Jul, Chronic pain G89.29 [facility] [address] [id number] [address] [place] [address] Jul, Bipolar I disorder, most rec ent episode (or current) mixed, moderate F31.62 and Mild cognitive impairment G31.84 [facility] [address] [id number] [address] [place] [address] Jul, Bipolar I disorder, most rec ent episode (or current) mixed, moderate F31.62 and MCI (mild cognitive impairment) G31.84 [facility] [address] [id number] [address] [place] [address] Jul, [facility] [address] [id number] [address] [place] [address] Jul, [facility] [address] [id number] [address] [place] [address] Jul, Bipolar I disorder, most rec ent episode (or current) mixed, moderate F31.62 [facility] [address] [id number] [address] [place] [address] Jul, Chronic pain G89.29 [facility] [address] [id number] [address] [place] [address] Jun, Bipolar I disorder, most rec ent episode (or current) mixed, moderate F31.62 [facility] [address] [id number] [address] [place] [address] Jun, Pre-procedure lab exam Z01.8 12 [facility] [address] [id number] [address] [place] [address] Jun, [facility] [address] [id number] [place] [id number] Jun, [facility] [address] [id number] [address] [place] [address] Jun, [facility] [address] [id number] [address] [place] [address] Jun, Forgetfulness R68.89 ; Pre-s yncope R55 ; Localized edema R60.0 ; Other iron deficiency anemia D50.8 and BMI 50.0-59.9, adult Z68.43 [place] [address] [address] [place] [id number] [place] [address] Jun, Chronic pain G89.29 [place] [address] [address] Jun, Chronic pain G89.29 [place] [address] [address] Jun, Bipolar I disorder, most rec ent episode (or current) mixed, moderate F31.62 [place] [address] [address] [place] [id number] [place] [address] May, Chronic pain G89.29 [place] [address] [address] Apr, [place] [address] [address] Apr, Chronic pain G89.29 [place] [address] [place] [id number] [place] [address] Apr, Primary osteoarthritis of ri ght knee M17.11 [place] [address] [address] Mar, [place] [address] [address] [place] [id number] [place] [address] Mar, BMI 50.0-59.9, adult Z68.43 and Bipolar disorder, in partial remission, most recent episode depressed F31.75 [place] [address] [address] [place] [id number] [place] [address] Mar, Diabetes E11.9 ; Pure hyperc holesterolemia E78.00 ; Essential hypertension I10 ; Nausea with vomiting, unspecified R11.2 and Headache, unspecified headache type R51 [facility] [address] [facility] [id number] [address] [place] [address] Mar, Bipolar I disorder, most rec ent episode (or current) mixed, moderate F31.62 [facility] [address] [facility] [id number] [address] [place] [address] Mar, Bipolar I disorder, most rec ent episode (or current) mixed, moderate F31.62 [place] [address] [address] [facility] [id number] [address] [place] [address] Mar, Chronic pain G89.29 [place] [address] [address] [facility] [id number] [address] [place] [address] Mar, Bipolar I disorder, most rec ent episode (or current) mixed, moderate F31.62 [place] [address] [address] [facility] [id number] [address] [place] [address] Feb, Bipolar I disorder, most rec ent episode (or current) mixed, moderate F31.62 [place] [address] [address] [facility] [id number] [address] [place] [address] Feb, Chronic pain G89.29 [place] [address] [address] [facility] [id number] [address] [place] [address] Feb, Decubitus ulcer of right josselin t, stage 3 L89.893 and BMI 50.0-59.9, adult Z68.43 [place] [address] [address] [facility] [id number] [address] [place] [address] Feb, Bipolar I disorder, most rec ent episode (or current) mixed, moderate F31.62 [place] [address] [address] [facility] [id number] [address] [place] [address] Feb, [facility] [address] [facility] [id number] [address] [place] [address] January, [facility] [address] [facility] [id number] [address] [place] [address] January, Chronic pain G89.29 [facility] [address] [facility] [id number] [address] [place] [address] January, Bipolar I disorder, most rec ent episode (or current) mixed, moderate F31.62 [facility] [address] [facility] [id number] [address] [place] [address] January, Bipolar I disorder, most rec ent episode (or current) mixed, moderate F31.62 [place] [address] [address] [place] [id number] [place] [address] Dec, Bipolar I disorder, most rec ent episode (or current) mixed, moderate F31.62 and BMI 50.0-59.9, adult Z68.43 [place] [address] [address] [place] [id number] [place] [address] Dec, Bipolar I disorder, most rec ent episode (or current) mixed, moderate F31.62 [place] [address] [place] [id number] [place] [address] Dec, Chronic pain G89.29 [place] [address] [place] [id number] [place] [address] Dec, DM neuro manif type II E11.4 9 ; Right flank pain R10.9 ; gun number 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 Z79.891 ; Encounter for medication monitoring Z51.81 and BMI 50.0-59.9, adult Z68.43 [place] [address] [place] [id number] [place] [address] Dec, Bipolar I disorder, most rec ent episode (or current) mixed, moderate F31.62 [place] [address] [place] [id number] [place] [address] Nov, Bipolar I disorder, most rec ent episode (or current) mixed, moderate F31.62 [place] [address] [place] [id number] [place] [address] Nov, Chronic pain G89.29 [place] [address] [place] [id number] [place] [address] Nov, Bipolar I disorder, most rec ent episode (or current) mixed, moderate F31.62 [place] [address] [address] Nov, Hypokalemia E87.6 [place] [address] [address] Nov, Bipolar I disorder, most rec ent episode (or current) mixed, moderate F31.62 [place] [address] [address] Oct, Chronic pain G89.29 [place] [address] [address] Oct, BMI 50.0-59.9, adult Z68.43 and Bipolar I disorder, most recent episode (or current) mixed, moderate F31.62 [place] [address] [address] Oct, Bipolar I disorder, most rec ent episode (or current) mixed, moderate F31.62 [place] [address] [address] Oct, [place] [address] [address] Oct, Hypokalemia E87.6 [place] [address] [address] Oct, DM neuro manif type II E11.4 9 [place] [address] [address] Oct, Bipolar I disorder, most rec ent episode (or current) mixed, moderate F31.62 [place] [address] [address] Oct, Bipolar I disorder, most rec ent episode (or current) mixed, moderate F31.62 [place] [address] [address] 14 Oct, 2017 Hyperkalemia E87.5 ; Falling R29.6 ; BMI 50.0-59.9, adult Z68.43 and Acute left ankle pain M25.572 [place] [address] [address] 08 Oct, 2017 DM neuro manif type II E11.4 9 [place] [address] [address] Oct, [place] [address] [address] Sep, Chronic pain G89.29 [place] [address] [address] Sep, [place] [address] [address] Sep, Bilateral primary osteoarthr itis of knee M17.0 [place] [address] [address] Sep, Generalized edema R60.1 [place] [address] [address] 16 Sep, 2017 Bipolar I disorder, most rec ent episode (or current) mixed, moderate F31.62 [place] [address] [address] 15 Sep, 2017 Hypoxia R09.02 ; Other hyper volemia E87.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 ; Anemia of chronic illness D63.8 and BMI 50.0- 59.9, adult Z68.43 [place] [address] [address] Sep, [place] [id number] [place] [address] Sep, Bipolar I disorder, most rec ent episode (or current) mixed, moderate F31.62 [facility] [address] [facility] [id number] [address] [place] [address] Aug, Chronic pain G89.29 [facility] [address] [facility] [id number] [address] [place] [address] Aug, Generalized edema R60.1 [facility] [address] [facility] [id number] [address] [place] [address] 18 Aug, 2017 [facility] [address] [facility] [id number] [address] [place] [address] 18 Aug, 2017 [facility] [address] [facility] [id number] [address] [place] [address] 14 Aug, 2017 Bipolar I disorder, most rec ent episode (or current) mixed, moderate F31.62 [facility] [address] [facility] [id number] [address] [place] [address] 07 Aug, 2017 Bipolar I disorder, most rec ent episode (or current) mixed, moderate F31.62 [facility] [address] [facility] [id number] [address] [place] [address] 04 Aug, 2017 Chronic pain G89.29 [facility] [address] [facility] [id number] [address] [place] [address] 30 Jul, 2017 Bipolar I disorder, most rec ent episode (or current) mixed, moderate F31.62 [facility] [address] [id number] [address] [place] [address] Jul, Bipolar I disorder, most rec ent episode (or current) mixed, moderate F31.62 and BMI 60.0-69.9, adult Z68.44 [facility] [address] [facility] [id number] [address] [place] [address] 16 Jul, 2017 Bipolar I disorder, most rec ent episode (or current) mixed, moderate F31.62 [facility] [address] [facility] [id number] [address] [place] [address] Jul, Chronic pain G89.29 [facility] [address] [facility] [id number] [address] [place] [address] Jul, Bipolar I disorder, most rec ent episode (or current) mixed, moderate F31.62 [facility] [address] [facility] [id number] [address] [place] [address] Jun, Polyneuropathy associated wi th underlying disease G63 and Diabetes E11.9 [facility] [address] [facility] [id number] [address] [place] [address] 16 Jun, 2017 Bipolar I disorder, most rec ent episode (or current) mixed, moderate F31.62 [facility] [address] [facility] [id number] [address] [place] [address] Jun, Chronic pain G89.29 [place] [address] [place] [id number] [address] [place] [address] May, Bipolar I disorder, most rec ent episode (or current) mixed, moderate F31.62 [place] [address] [facility] [id number] [address] [place] [address] May, Bipolar I disorder, most rec ent episode (or current) mixed, moderate F31.62 [place] [address] [facility] [id number] [address] [place] [address] May, Diabetic polyneuropathy asso ciated with type 2 diabetes mellitus E11.42 [facility] [address] [facility] [id number] [address] [place] [address] 18 May, 2017 Bipolar I disorder, most rec ent episode (or current) mixed, moderate F31.62 [place] [address] [facility] [id number] [address] [place] [address] 13 May, 2017 Bipolar I disorder, most rec ent episode (or current) mixed, moderate F31.62 [place] [address] [facility] [id number] [address] [place] [address] May, Chronic pain G89.29 [facility] [address] [id number] [address] [place] [address] Apr, Bipolar I disorder, most rec ent episode (or current) mixed, moderate F31.62 [facility] [address] [id number] [address] [place] [address] Apr, [facility] [address] [id number] [address] [place] [address] Apr, Chronic pain G89.29 and DM n euro manif type II E11.49 [facility] [address] [id number] [address] [place] [address] Apr, [facility] [address] [id number] [address] [place] [address] Apr, Bipolar I disorder, most rec ent episode (or current) mixed, moderate F31.62 [facility] [address] [facility] [id number] [address] [place] [address] Apr, Chronic pain G89.29 [facility] [address] [id number] [address] [place] [address] Apr, Iliotibial band syndrome, le ft M76.32 [facility] [address] [facility] [id number] [address] [place] [address] Apr, Bipolar I disorder, most rec ent episode (or current) mixed, moderate F31.62 [facility] [address] [id number] [address] [place] [address] Mar, Bipolar I disorder, most rec ent episode (or current) mixed, moderate F31.62 [facility] [address] [facility] [id number] [address] [place] [address] Mar, Bipolar I disorder, most rec ent episode (or current) mixed, moderate F31.62 [facility] [address] [facility] [id number] [address] [place] [id number] Mar, [facility] [address] [facility] [id number] [address] [place] [id number] Mar, Bipolar I disorder, most rec ent episode (or current) mixed, moderate F31.62 [facility] [address] [facility] [id number] [address] [place] [id number] Mar, Chronic pain G89.29 [facility] [address] [facility] [id number] [address] [place] [id number] Mar, Bipolar I disorder, most rec ent episode (or current) mixed, moderate F31.62 [facility] [address] [facility] [id number] [address] [place] [id number] Mar, Bipolar I disorder, most rec ent episode (or current) mixed, moderate F31.62 [facility] [address] [facility] [id number] [address] [place] [id number] Mar, Acute pain of left knee M25. 562 ; Left hip pain M25.552 ; Generalized edema R60.1 and Tongue swelling R22.0 [facility] [address] [facility] [id number] [address] [place] [address] Mar, [facility] [address] [facility] [id number] [address] [place] [address] Feb, Chronic pain G89.29 [facility] [address] [facility] [id number] [address] [place] [address] Feb, Diabetes E11.9 [facility] [address] [facility] [id number] [address] [place] [address] January, Chronic pain G89.29 [facility] [address] [facility] [id number] [address] [place] [address] January, [facility] [address] [facility] [id number] [address] [place] [address] January, Bipolar I disorder, most rec ent episode (or current) mixed, moderate F31.62 [facility] [address] [facility] [id number] [address] [place] [address] Dec, Bipolar I disorder, most rec ent episode (or current) mixed, moderate F31.62 [facility] [address] [id number] [address] [place] [address] Dec, Chronic pain G89.29 [facility] [address] [facility] [id number] [address] [place] [address] Dec, Bipolar I disorder, most rec ent episode (or current) mixed, moderate F31.62 [facility] [address] [facility] [id number] [address] [place] [address] Dec, Diabetes E11.9 ; Essential h ypertension I10 ; Chronic pain G89.29 and Morbid obesity E66.01 [facility] [address] [facility] [id number] [address] [place] [address] Dec, [facility] [address] [facility] [id number] [address] [place] [address] Dec, Bipolar I disorder, most rec ent episode (or current) mixed, moderate F31.62 [facility] [address] [facility] [id number] [address] [place] [address] Dec, Bipolar I disorder, most rec ent episode (or current) mixed, moderate F31.62 [facility] [address] [facility] [id number] [address] [place] [address] Nov, Chronic pain G89.29 [facility] [address] [facility] [id number] [address] [place] [address] Nov, Bipolar I disorder, most rec ent episode (or current) mixed, moderate F31.62 [facility] [address] [facility] [id number] [address] [place] [address] Nov, [facility] [address] [facility] [id number] [address] [place] [address] Nov, Bipolar I disorder, most rec ent episode (or current) mixed, moderate F31.62 [facility] [address] [facility] [id number] [address] [place] [address] Nov, Bipolar I disorder, most rec ent episode (or current) mixed, moderate F31.62 [facility] [address] [facility] [id number] [address] [place] [address] Nov, [facility] [address] [facility] [id number] [address] [place] [address] Nov, [facility] [address] [place] [id number] [address] [place] [address] Nov, [facility] [address] [place] [id number] [address] [place] [address] Oct, Chronic pain G89.29 [facility] [address] [place] [id number] [place] [address] Oct, Bipolar I disorder, most rec ent episode (or current) mixed, moderate F31.62 [facility] [address] [place] [id number] [address] [place] [address] Oct, [facility] [address] [place] [id number] [place] [address] Oct, Chronic pain G89.29 ; Diabet es E11.9 ; Anxiety F41.9 and 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 [facility] [address] [place] [id number] [address] [place] [address] Oct, [facility] [address] [place] [id number] [address] [place] [address] Oct, Diabetes E11.9 [facility] [address] [place] [id number] [address] [place] [address] Oct, Bipolar I disorder, most rec ent episode (or current) mixed, moderate F31.62 [facility] [address] [place] [id number] [address] [place] [address] Sep, Chronic pain G89.29 [facility] [address] [place] [id number] [address] [place] [address] Sep, Chronic pain G89.29 [facility] [address] [id number] [address] [place] [address] Aug, Chronic pain G89.29 [facility] [address] [id number] [address] [place] [address] Jul, [facility] [address] [facility] [id number] [address] [place] [address] Jul, Diabetes E11.9 [facility] [address] [id number] [address] [place] [address] Jul, Chronic pain G89.29 [facility] [address] [id number] [address] [place] [id number] Jul, Bipolar I disorder, most rec ent episode (or current) mixed, moderate F31.62 [facility] [address] [facility] [id number] [address] [place] [address] Jun, Bipolar I disorder, most rec ent episode (or current) mixed, moderate F31.62 [facility] [address] [facility] [id number] [address] [place] [address] Jun, [facility] [address] [facility] [id number] [address] [place] [address] Jun, Bipolar I disorder, most rec ent episode (or current) mixed, moderate F31.62 [facility] [address] [facility] [id number] [address] [place] [address] 30 May, 2016 Insomnia, unspecified type G 47.00 [facility] [address] [id number] [address] [place] [address] May, Bipolar I disorder, most rec ent episode (or current) mixed, moderate F31.62 [facility] [address] [facility] [id number] [address] [place] [address] 14 May, 2016 [facility] [address] [facility] [id number] [address] [place] [address] May, Bipolar I disorder, most rec ent episode (or current) mixed, moderate F31.62 [facility] [address] [facility] [id number] [address] [place] [address] May, Diabetes E11.9 and Essential hypertension I10 [facility] [address] [facility] [id number] [address] [place] [address] Apr, Chronic pain G89.29 [place] [address] [place] [id number] [address] [place] [address] Apr, Bipolar I disorder, most rec ent episode (or current) mixed, moderate F31.62 [place] [address] [facility] [id number] [address] [place] [address] Apr, [place] [address] [place] [id number] [address] [place] [address] Apr, [place] [address] [place] [id number] [address] [place] [address] Mar, Chronic pain G89.29 ; Headac he, unspecified headache type R51 ; Neuropathy G62.9 ; Pain of right hip joint M25.551 and Essential hypertension I10 [place] [address] [facility] [id number] [address] [place] [address] Mar, Chronic pain G89.29 [place] [address] [facility] [id number] [address] [place] [address] Mar, Bipolar I disorder, most rec ent episode (or current) mixed, moderate F31.62 [place] [address] [facility] [id number] [address] [place] [address] Feb, Bipolar I disorder, most rec ent episode (or current) mixed, moderate F31.62 and Insomnia, unspecified type G47.00 [place] [address] [facility] [id number] [address] [place] [address] Feb, Chronic pain G89.29 [place] [address] [facility] [id number] [address] [place] [address] Feb, Bipolar I disorder, most rec ent episode (or current) mixed, moderate F31.62 [facility] [address] [id number] [address] [place] [address] January, Bipolar I disorder, most rec ent episode (or current) mixed, moderate F31.62 [facility] [address] [id number] [address] [place] [address] January, Chronic pain G89.29 [facility] [address] [id number] [address] [place] [address] January, Chronic pain G89.29 and Esse ntial hypertension I10 [facility] [address] [id number] [address] [place] [address] January, Bipolar I disorder, most rec ent episode (or current) mixed, moderate F31.62 [facility] [address] [id number] [address] [place] [address] Dec, [facility] [address] [id number] [address] [place] [address] Dec, [facility] [address] [id number] [address] [place] [address] Dec, [facility] [address] [id number] [address] [place] [address] Dec, [facility] [address] [id number] [address] [place] [address] Nov, Reactive airway disease J45. 909 [facility] [address] [id number] [address] [place] [address] Nov, [facility] [address] [id number] [address] [place] [address] Nov, [facility] [address] [id number] [address] [place] [address] Nov, [facility] [address] [id number] [address] [place] [address] Nov, [place] [id number] [place] [address] Nov, Onychomycosis B35.1 ; Hammer toe M20.40 ; [place] or callus L84 and DM neuro manif type II E11.49 [place] [address] [address] Nov, Chronic pain G89.29 ; Leukoc ytosis D72.829 and Diabetes E11.9 [place] [address] [address] Nov, [place] [address] [address] Oct, Bronchitis J40 [place] [address] [address] Oct, [place] [address] [address] Oct, [place] [address] [address] Oct, Mastoiditis, unspecified lat erality H70.90 and Type 2 diabetes mellitus with complication E11.8 [place] [address] [address] Sep, [address] [address] Sep, Dysuria R30.0 ; Cough R05 ; Benign prostatic hyperplasia with lower urinary tract symptoms, unspecified morphology N40.1 ; Hypokalemia E87.6 and Eustachian tube dysfunction, unspecified laterality H69.[address] [address] Sep, Moderate mixed bipolar I dis order F31.[address] [address] Sep, Hypokalemia E87.6 [facility] [address] [id number] [address] [place] [address] Sep, [facility] [address] [facility] [id number] [address] [place] [address] Sep, Upper respiratory tract infe ction, unspecified type J06.9 [facility] [address] [facility] [id number] [address] [place] [address] Aug, [facility] [address] [id number] [address] [place] [address] Aug, Dysuria R30.0 [facility] [address] [facility] [id number] [address] [place] [address] Aug, [facility] [address] [facility] [id number] [address] [place] [address] Jul, [facility] [address] [facility] [id number] [address] [place] [address] Jul, [facility] [address] [facility] [id number] [address] [place] [address] Jul, [facility] [address] [facility] [id number] [address] [place] [address] Jul, [facility] [address] [facility] [id number] [address] [place] [address] Jun, [facility] [address] [facility] [id number] [address] [place] [address] Jun, [facility] [address] [id number] [address] [place] [address] Jun, [facility] [address] [facility] [id number] [address] [place] [address] May, [facility] [address] [facility] [id number] [address] [place] [address] May, Bipolar I disorder, most rec ent episode (or current) mixed, moderate 296.62 [facility] [address] [facility] [id number] [address] [place] [address] May, [facility] [address] [id number] [address] [place] [address] May, Bipolar I disorder, most rec ent episode (or current) mixed, moderate 296.62 and Major depressive disorder, recurrent episode, severe, specified as with psychotic behavior 296.34 [facility] [address] [facility] [id number] [address] [place] [address] May, Bipolar I disorder, most rec ent episode (or current) mixed, moderate 296.62 [facility] [address] [facility] [id number] [address] [place] [address] May, [facility] [address] [place] [id number] [address] [place] [address] Apr, [facility] [address] [facility] [id number] [address] [place] [address] Apr, [facility] [address] [place] [id number] [address] [place] [address] Apr, Unspecified disorder of kidn ey and ureter 593.9 and Diabetes mellitus type 2, uncontrolled 250.02 [facility] [address] [place] [id number] [address] [place] [address] Apr, [facility] [address] [facility] [id number] [address] [place] [address] Apr, [facility] [address] [facility] [id number] [address] [place] [address] Apr, [facility] [address] [facility] [id number] [address] [place] [address] Apr, [facility] [address] [facility] [id number] [address] [place] [address] Apr, Diabetes mellitus type II, u ncontrolled 250.02 [facility] [address] [facility] [id number] [address] [place] [address] Apr, [facility] [address] [facility] [id number] [address] [place] [address] Mar, [facility] [address] [facility] [id number] [address] [place] [address] Mar, [facility] [address] [facility] [id number] [address] [place] [address] Mar, [facility] [address] [facility] [id number] [address] [place] [address] Mar, Major depressive disorder, r ecurrent episode, severe, specified as with psychotic behavior 296.34 and Bipolar I disorder, most recent episode (or current) mixed, moderate 296.62 [facility] [address] [place] [id number] [address] [place] [address] Mar, Diabetes 250.00 ; Anuria 788 .5 ; Nausea and vomiting 787.01 and Diarrhea 787.91 [facility] [address] [facility] [id number] [address] [place] [address] Mar, Diabetes 250.00 [facility] [address] [facility] [id number] [address] [place] [address] Mar, [facility] [address] [facility] [id number] [address] [place] [address] Mar, Diabetes 250.00 [facility] [address] [facility] [id number] [address] [place] [address] Mar, [facility] [address] [facility] [id number] [address] [place] [address] Mar, [facility] [address] [facility] [id number] [address] [place] [address] Mar, [facility] [address] [facility] [id number] [address] [place] [address] Mar, [facility] [address] [facility] [id number] [address] [place] [address] Mar, Bipolar I disorder, most rec ent episode (or current) mixed, moderate 296.62 and Major depressive disorder, recurrent episode, severe, specified as with psychotic behavior 296.[address] [address] Mar, Magnesium deficiency 275.2 ; Hypokalemia 276.8 ; Nausea & vomiting 787.01 and Diabetes mellitus type 2, uncontrolled 250.[address] [address] Feb, [address] [address] Feb, Bipolar I disorder, most rec ent episode (or current) mixed, moderate 296.[address] [address] Feb, Nausea and vomiting 787.01 ; Left elbow pain 719.42 ; Anuria 788.5 and Diabetes 250.[address] [address] Feb, [address] [address] Feb, Hypopotassemia 276.8 and Hyp okalemia 276.[address] [address] Feb, Hypopotassemia 276.8 and Hyp okalemia 276.[address] [address] Feb, Seborrheic keratoses 702.[address] [address] Feb, Hypopotassemia 276.8 and Low magnesium levels 275.[address] [address] January, [address] [address] January, [facility] [address] [id number] [address] [place] [address] January, [facility] [address] [id number] [address] [place] [address] January, Scalp lesion 709.9 [facility] [address] [id number] [address] [place] [address] January, [facility] [address] [id number] [address] [place] [address] Dec, Tear of medial cartilage or meniscus of knee, current 836.0 and 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 [facility] [address] [id number] [address] [place] [address] Dec, [facility] [address] [id number] [address] [place] [address] Dec, [facility] [address] [id number] [address] [place] [address] Dec, Squamous cell carcinoma, 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 [facility] [address] [id number] [address] [place] [address] Dec, [facility] [address] [id number] [address] [place] [address] Dec, [facility] [address] [id number] [address] [place] [address] Nov, [facility] [address] [id number] [address] [place] [address] Nov, [facility] [address] [id number] [address] [place] [address] Nov, [facility] [address] [id number] [address] [place] [address] Nov, [facility] [address] [id number] [address] [place] [address] Nov, [facility] [address] [id number] [address] [place] [address], [place] [address] 09 Nov, 2014 [facility] [address] [id number] [address] [place] [address], [place] [address] Nov, 2014 [facility] [address] [id number] [address] [place] [address], [place] [address] Nov, 2014 [facility] [address] [id number] [address] [place] [address], [place] [address] Nov, 2014 [facility] [address] [id number] [address] [place] [address], [place] [address] Nov, 2014 [facility] [address] [id number] [address] [place] [address], [place] [address] Nov, 2014 [facility] [address] [id number] [address] [place] [address], [place] [address] Nov, 2014 [facility] [address] [id number] [address] [place] [address], [place] [address] Oct, 2014 [facility] [address] [id number] [address] [place] [address], [place] [address] Oct, 2014 [facility] [address] [id number] [address] [place] [address], [place] [address] Oct, 2014 [facility] [address] [id number] [address] [place] [address], [place] [address] Oct, 2014 [facility] [address] [id number] [address] [place] [address], [place] [address] Oct, 2014 [facility] [address] [id number] [address] [place] [address], [place] [address] Oct, 2014 [facility] [address] [id number] [address] [place] [address], [place] [address] Oct, 2014 [facility] [address] [id number] [address] [place] [address], [place] [address] Oct, 2014 [facility] [address] [id number] [address] [place] [address], [place] [address] Oct, [facility] [address] [id number] [address] [place] [address], [place] [address] Sep, [facility] [address] [id number] [address] [place] [address], [place] [address] Sep, [facility] [address] [id number] [address] [place] [address], [place] [address] Sep, [facility] [address] [id number] [address] [place] [address], [place] [address] Sep, [facility] [address] [id number] [address] [place] [address], [place] [address] Sep, [facility] [address] [id number] [address] [place] [address], [place] [address] Sep, [facility] [address] [id number] [address] [place] [address], [place] [address] Sep, [facility] [address] [id number] [address] [place] [address], [place] [address] Sep, [facility] [address] [id number] [address] [place] [address], [place] [address] Sep, [facility] [address] [id number] [address] [place] [address], [place] [address] Sep, [facility] [address] [id number] [address] [place] [address], [place] [address] Sep, [facility] [address] [id number] [address] [place] [address] Sep, [facility] [address] [id number] [address] [place] [address], [place] [address] Sep, [facility] [address] [id number] [address] [place] [address], [place] [address] Sep, [facility] [address] [id number] [address] [place] [address], [place] [address] Sep, [facility] [address] [id number] [address] [place] [address], [place] [address] Sep, [facility] [address] [id number] [address] [place] [address], [place] [address] Aug, [facility] [address] [id number] [address] [place] [address], [place] [address] Aug, [facility] [address] [id number] [address] [place] [address], [place] [address] Aug, [facility] [address] [id number] [address] [place] [address], [place] [address] Aug, [facility] [address] [id number] [address] [place] [address], [place] [address] Aug, [facility] [facility] [address] [id number] [address] [place] [address], [place] [address] Aug, [facility] [address] [id number] [address] [place] [address], [place] [address] Aug, [facility] [address] [id number] [address] [place] [address], [place] [address] Aug, [facility] [address] [id number] [address] [place] [address], [place] [address] Aug, [facility] [address] [id number] [address] [place] [address], [place] [address] Aug, [facility] [address] [id number] [address] [place] [address], [place] [address] Aug, [facility] [address] [place] [id number] Aug, [facility] [address] [id number] [address] [place] [address], [place] [address] Aug, [facility] [address] [id number] [address] [place] [address], [place] [address] Aug, [facility] [address] [id number] [address] [place] [address], [place] [address] Aug, [facility] [address] [id number] [address] [place] [address], [place] [address] 10 Aug, 2014 [facility] [address] [id number] [address] [place] [address], [place] [address] Aug, [facility] [address] [id number] [address] [place] [address], [place] [address] Aug, [facility] [address] [id number] [address] [place] [address], [place] [address] Aug, [facility] [address] [id number] [address] [place] [address], [place] [address] Aug, [facility] [address] [id number] [address] [place] [address], [place] [address] Aug, [facility] [address] [id number] [address] [place] [address], [place] [address] Aug, [facility] [address] [id number] [address] [place] [address], [place] [address] Aug, [facility] [address] [id number] [address] [place] [address], [place] [address] Aug, [facility] [address] [id number] [address] [place] [address], [place] [address] Aug, [facility] [address] [id number] [address] [place] [address], [place] [address] Aug, [facility] [address] [id number] [address] [place] [address], [place] [address] Aug, [facility] [address] [id number] [address] [place] [address], [place] [address] Aug, [facility] [address] [id number] [address] [place] [address], [place] [address] Aug, [facility] [address] [id number] [address] [place] [address], [place] [address] Aug, [facility] [address] [id number] [address] [place] [address], [place] [address] Jul, [facility] [address] [id number] [address] [place] [address], [place] [address] Jul, [facility] [address] [id number] [address] [place] [address], [place] [address] Jul, [facility] [address] [id number] [address] [place] [address], [place] [address] Jul, [facility] [address] [id number] [address] [place] [address], [place] [address] Jul, [facility] [address] [id number] [address] [place] [address], [place] [address] Jul, [facility] [address] [id number] [address] [place] [address], [place] [address] Jul, [facility] [address] [id number] [address] [place] [address], [place] [address] Jul, [facility] [address] [id number] [address] [place] [address], [place] [address] Jul, [facility] [address] [id number] [address] [place] [address], [place] [address] Jul, [facility] [address] [id number] [address] [place] [address], [place] [address] Jun, [facility] [address] [id number] [address] [place] [address], [place] [address] Jun, [facility] [address] [id number] [address] [place] [address] 16 Jun, 2014 [facility] [address] [id number] [address] [place] [address], [place] [address] 16 Jun, 2014 [facility] [address] [id number] [address] [place] [address], [place] [address] 15 Jun, 2014 [facility] [address] [id number] [address] [place] [address], [place] [address] 15 Jun, 2014 [facility] [address] [id number] [address] [place] [address], [place] [address] 05 Jun, 2014 [facility] [address] [id number] [address] [place] [address], [place] [address] 05 Jun, 2014 [facility] [address] [id number] [address] [place] [address], [place] [address] Jun, [facility] [address] [id number] [address] [place] [address], [place] [address] Jun, [facility] [address] [id number] [address] [place] [address], [place] [address] 29 Sep, 2013 [facility] [address] [id number] [address] [place] [address], [place] [address] 29 Sep, 2013 [facility] [address] [id number] [address] [place] [address], [place] [address] 26 Sep, 2013 [facility] [address] [id number] [address] [place] [address], [place] [address] 26 May, 2013 [facility] [address] [id number] [address] [place] [address], [place] [address] 17 Sep, 2013 [facility] [address] [id number] [address] [place] [address], [place] [address] 17 May, 2013 [facility] [address] [id number] [address] [place] [address], [place] [address] 15 Sep, 2013 [facility] [address] [id number] [address] [place] [address], [place] [address] 15 Sep, 2013 [facility] [address] [id number] [address] [place] [address], [place] [address] 15 Sep, 2013 [facility] [address] [id number] [address] [place] [address], [place] [address] 15 Sep, 2013 [facility] [address] [id number] [address] [place] [address], [place] [address] 10 Sep, 2013 [facility] [address] [id number] [address] [place] [address], [place] [address] 10 May2013 [facility] [address] [id number] [facility] [place] [address] May, 2013 [facility] [address] [id number] [facility] [place] [address] May, [facility] [address] [id number] [facility] [place] [address] May, [facility] [address] [id number] [address] [place] [address], [place] [address] May, [facility] [address] [id number] [facility] [place] [address] Apr, [facility] [address] [id number] [address] [place] [address], [place] [address] Apr, [facility] [address] [id number] [address] [place] [address], [place] [address] Apr, [facility] [address] [id number] [address] [place] [address], [place] [address] Apr, [facility] [address] [id number] [address] [place] [address], [place] [address] Apr, [facility] [address] [id number] [address] [place] [address], [place] [address] Apr, [facility] [address] [id number] [address] [place] [address], [place] [address] Apr, [facility] [address] [id number] [address] [place] [address], [place] [address] Apr, [facility] [address] [id number] [address] [place] [address], [place] [address] Apr, [facility] [address] [id number] [address] [place] [address], [place] [address] Apr, [facility] [address] [id number] [address] [place] [address], [place] [address] Apr, [facility] [address] [id number] [address] [place] [address], [place] [address] Apr, [facility] [address] [id number] [facility] [place] [address] Apr, [facility] [address] [id number] [address] [place] [address], [place] [address] Apr, [facility] [address] [id number] [address] [place] [address], [place] [address] Apr, [facility] [address] [id number] [address] [place] [address], [place] [address] Mar, [facility] [address] [id number] [address] [place] [address], [place] [address] Mar, [facility] [address] [id number] [address] [place] [address], [place] [address] Mar, [facility] [address] [id number] [address] [place] [address], [place] [address] Mar, [facility] [address] [id number] [address] [place] [address], [place] [address] Mar, [facility] [address] [id number] [address] [place] [address], [place] [address] Mar, [facility] [address] [id number] [address] [place] [address], [place] [address] Mar, [facility] [address] [id number] [address] [place] [address], [place] [address] Mar, [facility] [address] [id number] [address] [place] [address], [place] [address] Mar, [facility] [address] [id number] [address] [place] [address], [place] [address] Mar, [facility] [address] [id number] [address] [place] [address], [place] [address] Mar, [facility] [address] [id number] [address] [place] [address], [place] [address] Mar, [facility] [address] [id number] [facility] [place] [address] Mar, 2013 [facility] [address] [id number] [facility] [place] [address] Mar, 2013 [facility] [address] [id number] [facility] [place] [address] Mar, 2013 [facility] [address] [id number] [address] [place] [address], [place] [address] Mar, 2013 [facility] [address] [id number] [address] [place] [address], [place] [address] Mar, 2013 [facility] [address] [id number] [address] [place] [address], [place] [address] Mar, [facility] [address] [id number] [address] [place] [address], [place] [address] Feb, [facility] [address] [id number] [address] [place] [address], [place] [address] Feb, [facility] [address] [id number] [address] [place] [address], [place] [address] Feb, [facility] [address] [id number] [address] [place] [address], [place] [address] Feb, [facility] [address] [id number] [address] [place] [address], [place] [address] Feb, [facility] [address] [id number] [address] [place] [address], [place] [address] Feb, [facility] [address] [id number] [address] [place] [address], [place] [address] Feb, [facility] [address] [id number] [address] [place] [address], [place] [address] Feb, [facility] [address] [id number] [address] [place] [address], [place] [address] Feb, [facility] [address] [id number] [address] [place] [address], [place] [address] Feb, [facility] [address] [id number] [address] [place] [address], [place] [address] Feb, [facility] [address] [id number] [address] [place] [address], [place] [address] Feb, [facility] [address] [id number] [address] [place] [address], [place] [address] Feb, [facility] [address] [id number] [address] [place] [address], [place] [address] Feb, [facility] [address] [id number] [address] [place] [address], [place] [address] January, [facility] [address] [id number] [address] [place] [address], [place] [address] January, [facility] [address] [id number] [address] [place] [address], [place] [address] January, [facility] [address] [id number] [address] [place] [address], [place] [address] January, [facility] [address] [id number] [address] [place] [address], [place] [address] January, [facility] [address] [id number] [address] [place] [address], [place] [address] January, [facility] [address] [id number] [address] [place] [address], [place] [address] January, [facility] [address] [id number] [address] [place] [address], [place] [address] January, [facility] [address] [id number] [address] [place] [address], [place] [address] January, [facility] [address] [id number] [address] [place] [address], [place] [address] January, [facility] [address] [id number] [address] [place] [address], [place] [address] January, [facility] [address] [id number] [address] [place] [address], [place] [address] January, [facility] [address] [id number] [address] [place] [address], [place] [address] January, [facility] [address] [id number] [address] [place] [address], [place] [address] January, [facility] [address] [id number] [address] [place] [address], [place] [address] Dec, [facility] [address] [id number] [address] [place] [address], [place] [address] Dec, [facility] [address] [id number] [address] [place] [address], [place] [address] Dec, [facility] [address] [id number] [address] [place] [address], [place] [address] Dec, [facility] [address] [id number] [address] [place] [address], [place] [address] Dec, [facility] [address] [id number] [address] [place] [address], [place] [address] Dec, [facility] [address] [id number] [address] [place] [address], [place] [address] Dec, [facility] [address] [id number] [address] [place] [address], [place] [address] Dec, [facility] [address] [id number] [address] [place] [address], [place] [address] Dec, [facility] [address] [id number] [address] [place] [address], [place] [address] Dec, [facility] [address] [id number] [address] [place] [address], [place] [address] Nov, [facility] [address] [id number] [address] [place] [address], [place] [address] Nov, [facility] [address] [id number] [address] [place] [address], [place] [address] Nov, [facility] [address] [id number] [address] [place] [address], [place] [address] 10 Nov, 2013 [facility] [address] [id number] [address] [place] [address], [place] [address] 08 Nov, 2013 [facility] [address] [id number] [address] [place] [address], [place] [address] 08 Nov, 2013 [facility] [address] [id number] [address] [place] [address], [place] [address] Nov, [facility] [address] [id number] [address] [place] [address], [place] [address] Nov, [facility] [address] [id number] [address] [place] [address], [place] [address] Nov, [facility] [address] [id number] [address] [place] [address], [place] [address] Nov, [facility] [address] [id number] [address] [place] [address], [place] [address] Oct, [facility] [address] [id number] [address] [place] [address], [place] [address] Oct, [facility] [address] [id number] [address] [place] [address], [place] [address] Oct, [facility] [address] [id number] [address] [place] [address], [place] [address] Oct, [facility] [address] [id number] [address] [place] [address], [place] [address] Oct, [facility] [address] [id number] [address] [place] [address], [place] [address] Oct, [facility] [address] [id number] [address] [place] [address], [place] [address] 14 Oct, 2013 [facility] [address] [id number] [address] [place] [address], [place] [address] 14 Oct, 2013 [facility] [address] [id number] [address] [place] [address], [place] [address] Oct, [facility] [address] [id number] [address] [place] [address], [place] [address] Oct, [facility] [address] [id number] [address] [place] [address], [place] [address] Oct, [facility] [address] [id number] [address] [place] [address], [place] [address] Oct, [facility] [address] [id number] [address] [place] [address], [place] [address] Oct, [facility] [address] [id number] [address] [place] [address], [place] [address] Oct, [facility] [address] [id number] [address] [place] [address], [place] [address] Sep, [facility] [address] [id number] [address] [place] [address], [place] [address] Sep, [facility] [address] [id number] [address] [place] [address], [place] [address] Sep, [facility] [address] [id number] [address] [place] [address], [place] [address] Sep, [facility] [address] [id number] [address] [place] [address], [place] [address] Sep, [facility] [address] [id number] [address] [place] [address], [place] [address] Sep, [facility] [address] [id number] [address] [place] [address], [place] [address] Sep, [facility] [address] [id number] [address] [place] [address], [place] [address] Sep, [facility] [address] [id number] [address] [place] [address], [place] [address] Sep, [facility] [address] [id number] [address] [place] [address], [place] [address] Sep, [facility] [address] [id number] [address] [place] [address], [place] [address] Aug, [facility] [address] [id number] [address] [place] [address], [place] [address] Aug, [facility] [address] [id number] [address] [place] [address], [place] [address] Jul, [facility] [address] [id number] [address] [place] [address], [place] [address] Jul, [facility] [address] [id number] [address] [place] [address], [place] [address] Jul, [facility] [address] [id number] [address] [place] [address], [place] [address] Jul, [facility] [address] [id number] [address] [place] [address], [place] [address] Jul, [facility] [address] [id number] [address] [place] [address], [place] [address] Jul, [facility] [address] [id number] [address] [place] [address], [place] [address] Jul, [facility] [address] [id number] [address] [place] [address], [place] [address] Jul, [facility] [address] [id number] [address] [place] [address], [place] [address] Jul, [facility] [address] [id number] [address] [place] [address], [place] [address] Jul, [facility] [address] [id number] [address] [place] [address], [place] [address] Jul, [facility] [address] [id number] [address] [place] [address], [place] [address] Jul, [facility] [address] [id number] [address] [place] [address], [place] [address] Jul, [facility] [address] [id number] [address] [place] [address] Jul, [facility] [address] [id number] [address] [place] [address], [place] [address] Jul, 2012 [facility] [address] [id number] [address] [place] [address] Jul, [facility] [address] [id number] [address] [place] [address] Jul, [facility] [address] [id number] [address] [place] [address] Jul, [facility] [address] [id number] [address] [place] [address], [place] [address] Jul, [facility] [address] [id number] [address] [place] [address] Jun, [facility] [address] [id number] [address] [place] [address] Jun, [facility] [address] [id number] [address] [place] [address] Jun, [facility] [address] [id number] [address] [place] [address] Jun, 2012 [facility] [address] [id number] [address] [place] [address] Jun, [facility] [address] [id number] [address] [place] [address] Jun, [facility] [address] [id number] [address] [place] [address] Jun, [facility] [address] [id number] [address] [place] [address], [place] [address] Jun, [facility] [address] [id number] [address] [place] [address] Jun, [facility] [address] [id number] [address] [place] [address] Jun, [facility] [address] [id number] [address] [place] [address], [place] [address] Jun, [facility] [address] [id number] [address] [place] [address], [place] [address] May, 2012 [facility] [address] [id number] [address] [place] [address], [place] [address] May, [facility] [address] [id number] [address] [place] [address], [place] [address] May, 2012 [facility] [address] [id number] [address] [place] [address], [place] [address] 17 May, 2012 [facility] [address] [id number] [address] [place] [address], [place] [address] May, 2012 [facility] [address] [id number] [address] [place] [address], [place] [address] May, 2012 [facility] [address] [id number] [address] [place] [address], [place] [address] May, [facility] [address] [id number] [address] [place] [address], [place] [address] 05 May, 2013 [facility] [address] [id number] [address] [place] [address], [place] [address] Apr, [facility] [address] [id number] [address] [place] [address], [place] [address] Apr, [facility] [address] [id number] [address] [place] [address], [place] [address] Apr, [facility] [address] [id number] [address] [place] [address], [place] [address] Apr, [facility] [address] [id number] [address] [place] [address], [place] [address] Apr, [facility] [address] [id number] [address] [place] [address], [place] [address] Mar, [facility] [address] [id number] [address] [place] [address], [place] [address] Mar, [facility] [address] [id number] [address] [place] [address], [place] [address] Mar, [facility] [address] [id number] [address] [place] [address], [place] [address] Mar, [facility] [address] [id number] [address] [place] [address], [place] [address] Mar, [facility] [address] [address] [id number] [address] [place] [address], [place] [address] Mar, [facility] [address] [id number] [address] [place] [address], [place] [address] Mar, [facility] [address] [id number] [address] [place] [address], [place] [address] Mar, [facility] [address] [id number] [address] [place] [address], [place] [address] Feb, [facility] [address] [id number] [address] [place] [address], [place] [address] Feb, [facility] [address] [id number] [address] [place] [address], [place] [address] January, [facility] [address] [id number] [address] [place] [address], [place] [address] January, [facility] [address] [id number] [address] [place] [address], [place] [address] Dec, [facility] [address] [id number] [address] [place] [address], [place] [address] Dec, [facility] [address] [id number] [address] [place] [address], [place] [address] Nov, [facility] [address] [id number] [address] [place] [address], [place] [address] Nov, [facility] [address] [id number] [address] [place] [address], [place] [address] Nov, [facility] [address] [id number] [address] [place] [address], [place] [address] 14 Nov, 2012 [facility] [address] [id number] [address] [place] [address], [place] [address] Oct, [facility] [address] [id number] [address] [place] [address], [place] [address] Oct, [facility] [address] [id number] [address] [place] [address], [place] [address] Oct, [facility] [address] [id number] [address] [place] [address], [place] [address] Oct, [facility] [address] [id number] [address] [place] [address], [place] [address] 16 Oct, 2012 [facility] [address] [id number] [address] [place] [address], [place] [address] 14 Oct, 2012 [facility] [address] [id number] [address] [place] [address], [place] [address] 08 Oct, 2012 [facility] [address] [id number] [address] [place] [address], [place] [address] 07 Oct, 2012 [facility] [address] [id number] [address] [place] [address], [place] [address] 03 Oct, 2012 [facility] [address] [id number] [address] [place] [address], [place] [address] 30 Sep, 2012 [facility] [address] [id number] [address] [place] [address], [place] [address] Sep, [facility] [address] [id number] [address] [place] [address], [place] [address] Sep, [facility] [address] [id number] [address] [place] [address], [place] [address] Sep, [facility] [address] [id number] [address] [place] [address], [place] [address] Sep, [facility] [address] [id number] [address] [place] [address], [place] [address] Sep, [facility] [address] [id number] [address] [place] [address], [place] [address] Sep, [facility] [address] [id number] [address] [place] [address], [place] [address] Sep, [facility] [address] [id number] [address] [place] [address], [place] [address] Aug, [facility] [address] [id number] [address] [place] [address], [place] [address] Aug, [facility] [address] [id number] [address] [place] [address], [place] [address] Aug, [facility] [address] [id number] [address] [place] [address], [place] [address] Aug, [facility] [address] [id number] [address] [place] [address], [place] [address] Aug, [facility] [address] [id number] [address] [place] [address], [place] [address] Aug, [facility] [address] [id number] [address] [place] [address], [place] [address] Aug, [facility] [address] [id number] [address] [place] [address], [place] [address] Aug, [facility] [address] [id number] [address] [place] [address], [place] [address] Jul, [facility] [address] [id number] [address] [place] [address], [place] [address] Jul, [facility] [address] [id number] [address] [place] [address], [place] [address] Jul, [facility] [address] [id number] [address] [place] [address], [place] [address] Jul, [facility] [address] [id number] [address] [place] [address], [place] [address] Jul, [facility] [address] [id number] [address] [place] [address], [place] [address] Jul, [facility] [address] [id number] [address] [place] [address], [place] [address] Jun, [facility] [address] [id number] [address] [place] [address], [place] [address] Jun, [facility] [address] [id number] [address] [place] [address], [place] [address] Jun, [facility] [address] [id number] [address] [place] [address], [place] [address] Jun, [facility] [address] [id number] [address] [place] [address], [place] [address] Jun, [facility] [address] [id number] [address] [place] [address], [place] [address] Jun, [facility] [address] [id number] [address] [place] [address], [place] [address] Jun, [facility] [address] [id number] [address] [place] [address], [place] [address] Jun, [facility] [address] [id number] [address] [place] [address], [place] [address] Jun, [facility] [address] [id number] [address] [place] [address], [place] [address] 26 May, 2012 [facility] [address] [id number] [address] [place] [address], [place] [address] 24 May, 2012 [facility] [address] [id number] [address] [place] [address], [place] [address] 18 May, 2012 [facility] [address] [id number] [address] [place] [address], [place] [address] 30 Apr, 2012 [facility] [address] [id number] [address] [place] [address], [place] [address] Apr, [facility] [address] [id number] [address] [place] [address], [place] [address] Apr, [facility] [address] [id number] [address] [place] [address], [place] [address] 14 Apr, 2012 [facility] [address] [id number] [address] [place] [address], [place] [address] Apr, [facility] [address] [id number] [address] [place] [address], [place] [address] Apr, [facility] [address] [id number] [address] [place] [address], [place] [address] Mar, [facility] [address] [id number] [address] [place] [address], [place] [address] Mar, [facility] [address] [id number] [address] [place] [address], [place] [address] Mar, [facility] [address] [id number] [address] [place] [address], [place] [address] Mar, [facility] [address] [id number] [address] [place] [address], [place] [address] Feb, [facility] [address] [id number] [address] [place] [address], [place] [address] Feb, [facility] [address] [id number] [address] [place] [address], [place] [address] Feb, [facility] [address] [id number] [address] [place] [address], [place] [address] Feb, [facility] [address] [id number] [address] [place] [address], [place] [address] Feb, [facility] [address] [id number] [address] [place] [address], [place] [address] January, [facility] [address] [id number] [address] [place] [address], [place] [address] January, [facility] [address] [id number] [address] [place] [address], [place] [address] January, [facility] [address] [id number] [address] [place] [address], [place] [address] January, [facility] [address] [id number] [address] [place] [address], [place] [address] January, [facility] [address] [id number] [address] [place] [address], [place] [address] January, [facility] [address] [id number] [address] [place] [address], [place] [address] Dec, [facility] [address] [id number] [address] [place] [address], [place] [address] Dec, [facility] [address] [id number] [address] [place] [address], [place] [address] Dec, [facility] [address] [id number] [address] [place] [address], [place] [address] Dec, [facility] [address] [id number] [address] [place] [address], [place] [address] Dec, [facility] [address] [id number] [address] [place] [address], [place] [address] Nov, [facility] [address] [id number] [address] [place] [address], [place] [address] Nov, [facility] [address] [id number] [address] [place] [address], [place] [address] Nov, [facility] [address] [id number] [address] [place] [address], [place] [address] Nov, [facility] [address] [id number] [address] [place] [address], [place] [address] Oct, [facility] [address] [id number] [address] [place] [address], [place] [address] Oct, [facility] [address] [id number] [address] [place] [address], [place] [address] 24 Oct, 2011 [facility] [address] [id number] [address] [place] [address], [place] [address] 13 Oct, 2011 [facility] [address] [id number] [address] [place] [address], [place] [address] Oct, [facility] [address] [id number] [address] [place] [address], [place] [address] Sep, [facility] [address] [id number] [address] [place] [address], [place] [address] Sep, [facility] [address] [id number] [address] [place] [address], [place] [address] Sep, [facility] [address] [id number] [address] [place] [address], [place] [address] Sep, [facility] [address] [id number] [address] [place] [address], [place] [address] Sep, [facility] [address] [id number] [address] [place] [address], [place] [address] Sep, [facility] [address] [id number] [address] [place] [address], [place] [address] Aug, [facility] [address] [id number] [address] [place] [address], [place] [address] Aug, [facility] [address] [id number] [address] [place] [address], [place] [address] Aug, [facility] [address] [id number] [address] [place] [address], [place] [address] Jul, [facility] [address] [id number] [address] [place] [address], [place] [address] Jul, [facility] [address] [id number] [address] [place] [address], [place] [address] Jul, [facility] [address] [id number] [address] [place] [address], [place] [address] Jul, [facility] [address] [id number] [address] [place] [address], [place] [address] Jun, [facility] [address] [id number] [address] [place] [address], [place] [address] Jun, [facility] [address] [id number] [address] [place] [address], [place] [address] 18 Jun, 2011 [facility] [address] [id number] [address] [place] [address], [place] [address] 10 Jun, 2011 [facility] [address] [id number] [address] [place] [address], [place] [address] 10 Jun, 2011 [facility] [address] [id number] [address] [place] [address], [place] [address] 10 Jun, 2011 [facility] [address] [id number] [address] [place] [address], [place] [address] 11 Mar, 2011 [facility] [address] [id number] [address] [place] [address], [place] [address] 18 Dec, 2010 [facility] [address] [id number] [address] [place] [address], [place] [address] 11 Dec, 2010 [facility] [address] [id number] [address] [place] [address], [place] [address] 18 Nov, 2010 [facility] [address] [id number] [address] [place] [address], [place] [address] 16 Nov, 2010 [facility] [address] [id number] [address] [place] [address], [place] [address] Sep, [facility] [address] [id number] [address] [place] [address], [place] [address] 31 Aug, 2010 [facility] [address] [id number] [address] [place] [address], [place] [address] 29 Aug, 2010 [facility] [address] [id number] [address] [place] [address], [place] [address] Aug, [facility] [address] [id number] [address] [place] [address], [place] [address] 29 Aug, 2010 [facility] [address] [id number] [address] [place] [address], [place] [address] 27 Aug, 2010 [facility] [address] [id number] [address] [place] [address], [place] [address] 14 Aug, 2010 [facility] [address] [id number] [address] [place] [address], [place] [address] 08 Aug, 2010 [facility] [address] [id number] [address] [place] [address], [place] [address] 08 Aug, 2010 [facility] [address] [id number] [address] [place] [address], [place] [address] 07 Aug, 2010 [facility] [address] [id number] [address] [place] [address], [place] [address] 06 Aug, 2010 [facility] [address] [id number] [address] [place] [address], [place] [address] 06 Aug, 2010 [facility] [address] [id number] [address] [place] [address], [place] [address] Aug, [facility] [address] [id number] [address] [place] [address], [place] [address] 30 Jul, 2010 [facility] [address] [id number] [address] [place] [address], [place] [address] 30 Jul, 2010 [facility] [address] [id number] [address] [place] [address], [place] [address] 30 Jul, 2010 [facility] [address] [id number] [address] [place] [address], [place] [address] Jul, [facility] [address] [id number] [address] [place] [address], [place] [address] Jul, [facility] [address] [id number] [address] [place] [address] Jul, [facility] [address] [id number] [address] [place] [address], [place] [address] Jun, [facility] [address] [id number] [address] [place] [address], [place] [address] Jun, [facility] [address] [id number] [address] [place] [address] Jun, [facility] [address] [id number] [address] [place] [address], [place] [address] 13 Jun, 2010 [facility] [address] [id number] [address] [place] [address], [place] [address] 16 Apr, 2010 [facility] [address] [id number] [address] [place] [address], [place] [address] Mar, [facility] [address] [id number] [address] [place] [address], [place] [address] 17 Feb, 2010 [facility] [address] [id number] [address] [place] [address], [place] [address] January, [facility] [address] [id number] [address] [place] [address], [place] [address] 15 Dec, 2009 [facility] [address] [id number] [address] [place] [address], [place] [address] Nov, [facility] [address] [id number] [address] [place] [address], [place] [address] Aug, [facility] [address] [id number] [address] [place] [address], [place] [address] Aug, [facility] [address] [id number] [address] [place] [address], [place] [address] Aug, [facility] [address] [id number] [address] [place] [address], [place] [address] Jul, [facility] [address] [id number] [address] [place] [address], [place] [address] Jul, [facility] [address] [id number] [address] [place] [address], [place] [address] 07 Jul, 2009 [facility] [address] [id number] [address] [place] [address], [place] [address] 30 Jun, 2009 [facility] [address] [id number] [address] [place] [address], [place] [address] 29 Jun, 2009 [facility] [address] [id number] [address] [place] [address], [place] [address] Jun, [facility] [address] [id number] [address] [place] [address] Jun, [facility] [address] [id number] [address] [place] [address] Jun, [facility] [address] [id number] [address] [place] [address] Jun, [facility] [address] [id number] [address] [place] [address] Apr, [facility] [address] [id number] [address] [place] [address] Apr, [facility] [address] [id number] [address] [place] [address] Feb, [facility] [address] [facility] [id number] [address] [place] [address] January, [facility] [address] [facility] [id number] [address] [place] [address] Dec, IMMUNIZATIONS No Known Immunizations SOCIAL HISTORY Never Assessed REASON FOR VISIT f/u PLAN OF CARE Activity Details Follow Up 2 Weeks Reason:depression VITAL SIGNS MEDICATIONS Unknown Medications RESULTS No Results PROCEDURES Procedure Date Ordered Result Body Site Psychotherapy, patient and family, 45 minutes, establi shed patient December 11, 2018 [facility] VISIT MENTAL HEALTH ESTAB PT December 11, 2018 INSTRUCTIONS MEDICATIONS ADMINISTERED No Known Medications [...] History inability to urinate 09/16/15 Hospitalization History [facility] inpatient mental health ea rly 1999's Hospitalization History hyperkalemia 10/2017 Hospitalization History fluid in lung
[2020-03-01 17:21] LABS: TOTAL PROTEIN 6.4 GM/DL (6.4-8.2)
--- OUTSIDE RECORDS SUMMARY | 2020-03-01 17:21 | XMS REPORT ---
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 Name Role Phone NOEMI WASHBURN Unavailable PROBLEMS Type Condition ICD9-CM Code [id number] Code Onset Dates Condition S tatus SNOMED Code Problem Cough R05 Active 54499169 Problem Benign prostatic hyperplasia with lower urinary tract symptoms, unspecified morphology N40.1 Active 52451 6007 Problem Eustachian tube dysfunction, unspecified laterality H69.80 Active 29115266 Problem Chronic pain G89.29 Active 7332865 1 Problem DM neuro manif type II E11.49 Active 15941908 Problem Diabetes E11.9 Active 46869031 Problem Leukocytosis D72.829 Active 3747921 06 Problem Falling R29.6 Active 051176993 Problem Pressure ulcer of other site, stage 3 L89.893 Active 825344871 Problem 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 Active 559527408 Problem Eye exam abnormal R93.8 Active 16 4734107 Problem Dysuria R30.0 Active 70118790 Problem Hypokalemia E87.6 Active 77704916 Problem Morbid obesity E66.01 Active 20203 6002 Problem Anxiety F41.9 Active 96570597 Problem Diabetic polyneuropathy associated with type 2 d iabetes mellitus E11.42 Active 67227774 Problem Essential hypertension I10 Active 94980573 Problem Bilateral primary osteoarthritis of knee M17.0 Active 953397811 Problem Polyneuropathy associated with underlying disease G63 Active 403045952 Problem Anemia of chronic illness D63.8 Acti ve 418658490 Problem Lymphocytosis D72.820 Active 037780 09 Problem Retinal edema H35.81 Active 386046 6 Problem Chronic lymphocytic leukemia C91.10 A ctive 00028230 Problem Bipolar disorder, in partial remission, most rec ent episode depressed F31.75 Active 91366026 Problem Pure hypercholesterolemia E78.00 Acti ve 259110584 Problem Primary osteoarthritis of right knee M17.11 Active 299705104911807 Problem Bipolar disorder F31.9 Active 137 04979 Problem Bipolar I disorder, most recent episode (or curr ent) mixed, moderate F31.62 Active 38025601 Problem Chronic diastolic (congestive) heart failure I50.3 2 Active 047526376 Problem Reactive airway disease J45.909 Active 727252123059 Problem Insomnia, unspecified type G47.00 Act sharon 162357317 Problem Other chronic pain G89.29 Active 8 1225079 Problem Other iron deficiency anemia D50.8 A ctive 19596307 Problem Mild cognitive impairment G31.84 Acti ve 844439964 Problem Skin cancer C44.90 Active 63911796 7 ALLERGIES No Information ENCOUNTERS Encounter Location Date Diagnosis [place] [address] [facility] [id number] [address] [place] [phone] Jun, [place] [address] [address] [place] [id number] [address] [place] [id number] Jun, [place] [address] [address] [place] [id number] [address] [place] [id number] May, [facility] [address] [facility] [id number] [address] [place] [address] Apr, Chronic pain G89.29 and Bipo lar disorder F31.9 [place] [address] [facility] [id number] [address] [place] [address] Mar, Bipolar disorder F31.9 and C hronic pain G89.29 [facility] [address] [facility] [id number] [address] [place] [address] Feb, Bipolar disorder F31.9 [facility] [address] [facility] [id number] [address] [place] [address] Feb, Cellulitis of right upper ex tremity L03.113 and Skin abrasion T14.8XXA [facility] [address] [facility] [id number] [address] [place] [address] Feb, Bipolar disorder, in partial remission, most recent episode depressed F31.75 and Mild cognitive impairment G31.84 [facility] [address] [place] [address] [id number] [address] [place] [phone] Feb, Chronic pain G89.29 [facility] [address] [place] [address] [id number] [address] [place] [phone] Feb, Bipolar disorder, in partial remission, most recent episode depressed F31.75 and Mild cognitive impairment G31.84 [facility] [address] [place] [address] [id number] [address] [place] [phone] January, Bipolar disorder, in partial remission, most recent episode depressed F31.75 and Mild cognitive impairment G31.84 [facility] [address] [place] [address] [id number] [address] [place] [address] January, Chronic pain G89.29 and Bipo lar disorder F31.9 [facility] [address] [id number] [address] [place] [address] January, Bipolar disorder, in partial remission, most recent episode depressed F31.75 and Mild cognitive impairment G31.84 [facility] [address] [place] [id number] [address] [place] [address] Dec, [facility] [address] [place] [address] [id number] [address] [place] [phone] Dec, Chronic pain G89.29 and Bipo lar disorder F31.9 [facility] [address] [id number] [address] [place] [id number] Dec, Edema of both lower extremit ies R60.0 [facility] [address] [address] [id number] [address] [place] [address] Dec, Bipolar disorder F31.9 [facility] [address] [id number] [address] [place] [phone] Dec, Bipolar disorder, in partial remission, most recent episode depressed F31.75 and Mild cognitive impairment G31.84 [facility] [address] [id number] [address] [place] [phone] Nov, [place] [address] [place] [id number] [address] [place] [phone] Nov, Chronic pain G89.29 [place] [address] [address] [place] [id number] [address] [place] [phone] Nov, Bipolar disorder, in partial remission, most recent episode depressed F31.75 and Mild cognitive impairment G31.84 [place] [address] [address] [place] [id number] [address] [place] [address] Nov, Bipolar disorder F31.9 [place] [address] [address] [place] [id number] [address] [place] [address] Nov, En[facility] exam Z00.00 ; Polyneuropathy associated [...] N40.1 and Essential hypertension I10 [place] [id number] [place] [address] Oct, Chronic pain G89.29 [place] [id number] [place] [address] Oct, Diabetes E11.9 [place] [address] [address] [place] [id number] [address] [place] [phone] Oct, Bipolar I disorder, most rec ent episode (or current) mixed, moderate F31.62 and Mild cognitive impairment G31.84 [place] [address] [address] [place] [id number] [address] [place] [phone] Oct, Bipolar I disorder, most rec ent episode (or current) mixed, moderate F31.62 and Mild cognitive impairment G31.84 [place] [address] [address] [place] [id number] [address] [place] [address] Sep, Bipolar I disorder, most rec ent episode (or current) mixed, moderate F31.62 and Mild cognitive impairment G31.84 [facility] [address] [facility] [id number] [address] [place] [id number] Sep, [facility] [address] [facility] [id number] [address] [place] [address] Sep, Diabetes E11.9 ; Hypoxia R09 .02 ; Hyperglycemia R73.9 ; Therapeutic drug monitoring Z51.81 ; BMI 50.0-59.9, adult Z68.43 and Skin cancer C44.90 [place] [address] [address] [facility] [id number] [address] [place] [id number] Sep, Chronic pain G89.29 [place] [address] [address] [place] [id number] [address] [place] [address] Sep, Bipolar I disorder, most rec ent episode (or current) mixed, moderate F31.62 [facility] [address] [facility] [id number] [address] [place] [phone] Sep, [facility] [address] [facility] [id number] [address] [place] [address] Sep, [facility] [address] [facility] [id number] [address] [place] [phone] Aug, Chronic pain G89.29 [facility] [address] [facility] [id number] [address] [place] [id number] Aug, Bipolar I disorder, most rec ent episode (or current) mixed, moderate F31.62 [facility] [address] [facility] [id number] [address] [place] [phone] Aug, Bipolar I disorder, most rec ent episode (or current) mixed, moderate F31.62 and Mild cognitive impairment G31.84 [facility] [address] [facility] [id number] [address] [place] [address] Jul, [facility] [address] [id number] [address] [place] [id number] Jul, Chronic pain G89.29 [facility] [address] [address] [id number] [address] [place] [address] Jul, Bipolar I disorder, most rec ent episode (or current) mixed, moderate F31.62 and Mild cognitive impairment G31.84 [facility] [address] [place] [address] [id number] [address] [place] [id number] Jul, Bipolar I disorder, most rec ent episode (or current) mixed, moderate F31.62 and MCI (mild cognitive impairment) G31.84 [facility] [address] [place] [address] [id number] [address] [place] [id number] Jul, [facility] [address] [place] [address] [id number] [address] [place] [address] Jul, [facility] [address] [place] [address] [id number] [address] [place] [id number] Jul, Bipolar I disorder, most rec ent episode (or current) mixed, moderate F31.62 [facility] [address] [place] [address] [id number] [address] [place] [address] Jul, Chronic pain G89.29 [facility] [address] [address] [id number] [address] [place] [address] Jun, Bipolar I disorder, most rec ent episode (or current) mixed, moderate F31.62 [facility] [address] [place] [address] [id number] [address] [place] [id number] Jun, Pre-procedure lab exam Z01.8 12 [facility] [address] [address] [id number] [place] [id number] Jun, [facility] [address] [address] [id number] [address] [place] [phone] Jun, [facility] [address] [place] [address] [id number] [address] [place] [phone] Jun, [facility] [address] [id number] Jun, Forgetfulness R68.89 ; Pre-s yncope R55 ; Localized edema R60.0 ; Other iron deficiency anemia D50.8 and BMI 50.0-59.9, adult Z68.43 [place] [address] [address] Jun, Chronic pain G89.29 [place] [address] [id number] Jun, Chronic pain G89.29 [place] [address] [address] Jun, Bipolar I disorder, most rec ent episode (or current) mixed, moderate F31.62 [place] [address] [address] May, Chronic pain G89.29 [place] [address] [address] Apr, [place] [address] [address] Apr, Chronic pain G89.29 [place] [address] [place] [id number] [place] [address] Apr, Primary osteoarthritis of ri ght knee M17.11 [place] [address] [address] Mar, [place] [address] [address] Mar, BMI 50.0-59.9, adult Z68.43 and Bipolar disorder, in partial remission, most recent episode depressed F31.75 [place] [address] [place] [id number] [place] [address] Mar, Diabetes E11.9 ; Pure hyperc holesterolemia E78.00 ; Essential hypertension I10 ; Nausea with vomiting, unspecified R11.2 and Headache, unspecified headache type R51 [facility] [address] [facility] [id number] [address] [place] [id number] Mar, Bipolar I disorder, most rec ent episode (or current) mixed, moderate F31.62 [facility] [address] [facility] [id number] [address] [place] [address] Mar, Bipolar I disorder, most rec ent episode (or current) mixed, moderate F31.62 [place] [address] [place] [id number] [address] [place] [address] Mar, Chronic pain G89.29 [place] [address] [facility] [id number] [address] [place] [address] Mar, Bipolar I disorder, most rec ent episode (or current) mixed, moderate F31.62 [place] [address] [place] [id number] [address] [place] [address] Feb, Bipolar I disorder, most rec ent episode (or current) mixed, moderate F31.62 [place] [address] [place] [id number] [address] [place] [address] Feb, Chronic pain G89.29 [facility] [address] [place] [id number] [address] [place] [address] Feb, Decubitus ulcer of right josselin t, stage 3 L89.893 and BMI 50.0-59.9, adult Z68.43 [place] [address] [place] [id number] [address] [place] [address] Feb, Bipolar I disorder, most rec ent episode (or current) mixed, moderate F31.62 [place] [address] [place] [id number] [address] [place] [id number] Feb, [facility] [address] [facility] [id number] [address] [place] [address] January, [facility] [address] [facility] [id number] [address] [place] [address] January, Chronic pain G89.29 [facility] [address] [facility] [id number] [address] [place] [id number] January, Bipolar I disorder, most rec ent episode (or current) mixed, moderate F31.62 [facility] [address] [place] [id number] [address] [place] [address] January, Bipolar I disorder, most rec ent episode (or current) mixed, moderate F31.62 [place] [address] [place] [id number] [address] [place] [address] Dec, Bipolar I disorder, most rec ent episode (or current) mixed, moderate F31.62 and BMI 50.0-59.9, adult Z68.43 [place] [address] [place] [id number] [place] [address] Dec, Bipolar I disorder, most rec ent episode (or current) mixed, moderate F31.62 [place] [address] [address] Dec, Chronic pain G89.29 [place] [address] [place] [id number] [place] [address] Dec, DM neuro manif type II E11.4 9 ; Right flank pain R10.9 ; 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 ; Encounter for medication monitoring Z51.81 and BMI 50.0-59.9, adult Z68.43 [place] [address] [place] [id number] [address] [place] [address] Dec, Bipolar I disorder, most rec ent episode (or current) mixed, moderate F31.62 [place] [address] [place] [id number] [address] [place] [address] Nov, Bipolar I disorder, most rec ent episode (or current) mixed, moderate F31.62 [place] [address] [place] [id number] [address] [place] [address] Nov, Chronic pain G89.29 [place] [address] [place] [id number] [address] [place] [address] Nov, Bipolar I disorder, most rec ent episode (or current) mixed, moderate F31.62 [place] [address] [place] [id number] [address] [place] [address] Nov, Hypokalemia E87.6 [place] [address] [place] [id number] [place] [address] Nov, Bipolar I disorder, most rec ent episode (or current) mixed, moderate F31.62 [place] [address] [place] [id number] [place] [address] Oct, Chronic pain G89.29 [place] [address] [place] [id number] [place] [address] Oct, BMI 50.0-59.9, adult Z68.43 and Bipolar I disorder, most recent episode (or current) mixed, moderate F31.62 [place] [address] [address] Oct, Bipolar I disorder, most rec ent episode (or current) mixed, moderate F31.62 [place] [address] [address] Oct, [place] [address] [address] Oct, Hypokalemia E87.6 [place] [address] [address] Oct, DM neuro manif type II E11.4 9 [place] [address] [address] Oct, Bipolar I disorder, most rec ent episode (or current) mixed, moderate F31.62 [place] [address] [place] [id number] [place] [address] Oct, Bipolar I disorder, most rec ent episode (or current) mixed, moderate F31.62 [place] [address] [address] 14 Oct, 2017 Hyperkalemia E87.5 ; Falling R29.6 ; BMI 50.0-59.9, adult Z68.43 and Acute left ankle pain M25.572 [place] [address] [address] 08 Oct, 2017 DM neuro manif type II E11.4 9 [place] [address] [address] Oct, [place] [address] [address] Sep, Chronic pain G89.29 [place] [address] [address] Sep, [place] [address] [address] Sep, Bilateral primary osteoarthr itis of knee M17.0 [place] [address] [address] 18 Sep, 2017 Generalized edema R60.1 [place] [address] [address] 16 Sep, 2017 Bipolar I disorder, most rec ent episode (or current) mixed, moderate F31.62 [place] [address] [address] 15 Sep, 2017 Hypoxia R09.02 ; Other hyper volemia E87.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 ; Anemia of chronic illness D63.8 and BMI 50.0- 59.9, adult Z68.43 [place] [address] [address] Sep, [place] [address] [facility] [id number] [address] [place] [address] Sep, Bipolar I disorder, most rec ent episode (or current) mixed, moderate F31.62 [facility] [address] [facility] [id number] [address] [place] [address] Aug, Chronic pain G89.29 [facility] [address] [facility] [id number] [address] [place] [address] Aug, Generalized edema R60.1 [facility] [address] [place] [address] [id number] [address] [place] [address] Aug, [facility] [address] [facility] [id number] [address] [place] [address] Aug, [facility] [address] [facility] [id number] [address] [place] [address] Aug, Bipolar I disorder, most rec ent episode (or current) mixed, moderate F31.62 [facility] [address] [facility] [id number] [address] [place] [address] 07 Aug, 2017 Bipolar I disorder, most rec ent episode (or current) mixed, moderate F31.62 [facility] [address] [facility] [id number] [address] [place] [address] 04 Aug, 2017 Chronic pain G89.29 [facility] [address] [facility] [id number] [address] [place] [address] 30 Jul, 2017 Bipolar I disorder, most rec ent episode (or current) mixed, moderate F31.62 [facility] [address] [facility] [id number] [address] [place] [address] 27 Jul, 2017 Bipolar I disorder, most rec ent episode (or current) mixed, moderate F31.62 and BMI 60.0-69.9, adult Z68.44 [facility] [address] [facility] [id number] [address] [place] [id number] 16 Jul, 2017 Bipolar I disorder, most rec ent episode (or current) mixed, moderate F31.62 [place] [address] [facility] [id number] [address] [place] [address] Jul, Chronic pain G89.29 [facility] [address] [facility] [id number] [address] [place] [address] Jul, Bipolar I disorder, most rec ent episode (or current) mixed, moderate F31.62 [facility] [address] [facility] [id number] [address] [place] [address] Jun, Polyneuropathy associated wi th underlying disease G63 and Diabetes E11.9 [facility] [address] [facility] [id number] [address] [place] [address] Jun, Bipolar I disorder, most rec ent episode (or current) mixed, moderate F31.62 [place] [address] [facility] [id number] [address] [place] [address] Jun, Chronic pain G89.29 [facility] [address] [facility] [id number] [address] [place] [address] May, Bipolar I disorder, most rec ent episode (or current) mixed, moderate F31.62 [place] [address] [facility] [id number] [address] [place] [address] May, Bipolar I disorder, most rec ent episode (or current) mixed, moderate F31.62 [place] [address] [facility] [id number] [address] [place] [address] May, Diabetic polyneuropathy asso ciated with type 2 diabetes mellitus E11.42 [facility] [address] [facility] [id number] [address] [place] [address] 18 May, 2017 Bipolar I disorder, most rec ent episode (or current) mixed, moderate F31.62 [place] [address] [facility] [id number] [address] [place] [id number] 13 May, 2017 Bipolar I disorder, most rec ent episode (or current) mixed, moderate F31.62 [place] [address] [place] [id number] [address] [place] [address] May, Chronic pain G89.29 [facility] [address] [address] [id number] [address] [place] [address] Apr, Bipolar I disorder, most rec ent episode (or current) mixed, moderate F31.62 [facility] [address] [place] [address] [id number] [address] [place] [address] Apr, [facility] [address] [facility] [id number] [address] [place] [address] Apr, Chronic pain G89.29 and DM n euro manif type II E11.49 [facility] [address] [place] [address] [id number] [address] [place] [address] Apr, [facility] [address] [facility] [id number] [address] [place] [id number] Apr, Bipolar I disorder, most rec ent episode (or current) mixed, moderate F31.62 [facility] [address] [facility] [id number] [address] [place] [id number] Apr, Chronic pain G89.29 [facility] [address] [facility] [id number] [address] [place] [id number] Apr, Iliotibial band syndrome, le ft M76.32 [facility] [address] [facility] [id number] [address] [place] [id number] Apr, Bipolar I disorder, most rec ent episode (or current) mixed, moderate F31.62 [facility] [address] [facility] [id number] [address] [place] [id number] Mar, Bipolar I disorder, most rec ent episode (or current) mixed, moderate F31.62 [facility] [address] [facility] [id number] [address] [place] [id number] Mar, Bipolar I disorder, most rec ent episode (or current) mixed, moderate F31.62 [facility] [address] [facility] [id number] [address] [place] [id number] Mar, [facility] [address] [place] [id number] [address] [place] [id number] Mar, Bipolar I disorder, most rec ent episode (or current) mixed, moderate F31.62 [facility] [address] [facility] [id number] [address] [place] [id number] Mar, Chronic pain G89.29 [facility] [address] [facility] [id number] [address] [place] [phone] Mar, Bipolar I disorder, most rec ent episode (or current) mixed, moderate F31.62 [facility] [address] [facility] [id number] [address] [place] [id number] Mar, Bipolar I disorder, most rec ent episode (or current) mixed, moderate F31.62 [facility] [address] [facility] [id number] [address] [place] [id number] Mar, Acute pain of left knee M25. 562 ; Left hip pain M25.552 ; Generalized edema R60.1 and Tongue swelling R22.0 [facility] [address] [facility] [id number] [address] [place] [phone] Mar, [facility] [address] [facility] [id number] [address] [place] [phone] Feb, Chronic pain G89.29 [facility] [address] [facility] [id number] [address] [place] [id number] Feb, Diabetes E11.9 [facility] [address] [facility] [id number] [address] [place] [phone] January, Chronic pain G89.29 [facility] [address] [facility] [id number] [address] [place] [id number] January, [facility] [address] [facility] [id number] [address] [place] [phone] January, Bipolar I disorder, most rec ent episode (or current) mixed, moderate F31.62 [facility] [address] [facility] [id number] [address] [place] [id number] Dec, Bipolar I disorder, most rec ent episode (or current) mixed, moderate F31.62 [facility] [address] [facility] [id number] [address] [place] [phone] Dec, Chronic pain G89.29 [facility] [address] [facility] [id number] [address] [place] [id number] Dec, Bipolar I disorder, most rec ent episode (or current) mixed, moderate F31.62 [facility] [address] [facility] [id number] [address] [place] [address] Dec, Diabetes E11.9 ; Essential h ypertension I10 ; Chronic pain G89.29 and Morbid obesity E66.01 [facility] [address] [facility] [id number] [address] [place] [phone] Dec, [facility] [address] [facility] [id number] [address] [place] [phone] Dec, Bipolar I disorder, most rec ent episode (or current) mixed, moderate F31.62 [facility] [address] [facility] [id number] [address] [place] [id number] Dec, Bipolar I disorder, most rec ent episode (or current) mixed, moderate F31.62 [facility] [address] [facility] [id number] [address] [place] [id number] Nov, Chronic pain G89.29 [facility] [address] [facility] [id number] [address] [place] [id number] Nov, Bipolar I disorder, most rec ent episode (or current) mixed, moderate F31.62 [facility] [address] [facility] [id number] [address] [place] [phone] Nov, [facility] [address] [facility] [id number] [address] [place] [id number] Nov, Bipolar I disorder, most rec ent episode (or current) mixed, moderate F31.62 [facility] [address] [facility] [id number] [address] [place] [phone] Nov, Bipolar I disorder, most rec ent episode (or current) mixed, moderate F31.62 [facility] [address] [facility] [id number] [address] [place] [phone] Nov, [facility] [address] [facility] [id number] [address] [place] [phone] Nov, [facility] [address] [facility] [id number] [address] [place] [phone] Nov, [facility] [address] [facility] [id number] [address] [place] [id number] Oct, Chronic pain G89.29 [facility] [address] [facility] [id number] [address] [place] [id number] Oct, Bipolar I disorder, most rec ent episode (or current) mixed, moderate F31.62 [facility] [address] [facility] [id number] [address] [place] [phone] Oct, [facility] [address] [facility] [id number] [address] [place] [address] Oct, Chronic pain G89.29 ; Diabet es E11.9 ; Anxiety F41.9 and 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 [facility] [address] [facility] [id number] [address] [place] [id number] Oct, [facility] [address] [facility] [id number] [address] [place] [phone] Oct, Diabetes E11.9 [facility] [address] [facility] [id number] [address] [place] [id number] Oct, Bipolar I disorder, most rec ent episode (or current) mixed, moderate F31.62 [facility] [address] [facility] [id number] [address] [place] [address] Sep, Chronic pain G89.29 [facility] [address] [facility] [id number] [address] [place] [address] Sep, Chronic pain G89.29 [facility] [address] [id number] [address] [place] [address] Aug, Chronic pain G89.29 [facility] [address] [id number] [address] [place] [address] Jul, [facility] [address] [facility] [id number] [address] [place] [address] Jul, Diabetes E11.9 [facility] [address] [id number] [address] [place] [id number] Jul, Chronic pain G89.29 [facility] [address] [id number] [address] [place] [id number] Jul, Bipolar I disorder, most rec ent episode (or current) mixed, moderate F31.62 [place] [address] [facility] [id number] [address] [place] [phone] Jun, Bipolar I disorder, most rec ent episode (or current) mixed, moderate F31.62 [facility] [address] [facility] [id number] [address] [place] [phone] Jun, [facility] [address] [facility] [id number] [address] [place] [id number] Jun, Bipolar I disorder, most rec ent episode (or current) mixed, moderate F31.62 [place] [address] [facility] [id number] [address] [place] [id number] 30 May, 2016 Insomnia, unspecified type G 47.00 [facility] [address] [id number] [address] [place] [address] May, Bipolar I disorder, most rec ent episode (or current) mixed, moderate F31.62 [facility] [address] [facility] [id number] [address] [place] [phone] 14 May, 2016 [facility] [address] [facility] [id number] [address] [place] [phone] May, Bipolar I disorder, most rec ent episode (or current) mixed, moderate F31.62 [place] [address] [facility] [id number] [address] [place] [address] May, Diabetes E11.9 and Essential hypertension I10 [facility] [address] [facility] [id number] [address] [place] [address] Apr, Chronic pain G89.29 [place] [address] [facility] [id number] [address] [place] [id number] Apr, Bipolar I disorder, most rec ent episode (or current) mixed, moderate F31.62 [place] [address] [facility] [id number] [address] [place] [address] Apr, [place] [address] [facility] [id number] [address] [place] [address] Apr, [place] [address] [place] [id number] [address] [place] [address] Mar, Chronic pain G89.29 ; Headac he, unspecified headache type R51 ; Neuropathy G62.9 ; Pain of right hip joint M25.551 and Essential hypertension I10 [place] [address] [facility] [id number] [address] [place] [address] Mar, Chronic pain G89.29 [place] [address] [facility] [id number] [address] [place] [id number] Mar, Bipolar I disorder, most rec ent episode (or current) mixed, moderate F31.62 [place] [address] [facility] [id number] [address] [place] [phone] Feb, Bipolar I disorder, most rec ent episode (or current) mixed, moderate F31.62 and Insomnia, unspecified type G47.00 [facility] [address] [facility] [id number] [address] [place] [address] Feb, Chronic pain G89.29 [place] [address] [facility] [id number] [address] [place] [phone] Feb, Bipolar I disorder, most rec ent episode (or current) mixed, moderate F31.62 [facility] [address] [id number] [address] [place] [id number] January, Bipolar I disorder, most rec ent episode (or current) mixed, moderate F31.62 [facility] [address] [address] [id number] [address] [place] [address] January, Chronic pain G89.29 [facility] [address] [id number] [address] [place] [id number] January, Chronic pain G89.29 and Esse ntial hypertension I10 [facility] [address] [id number] [address] [place] [address] January, Bipolar I disorder, most rec ent episode (or current) mixed, moderate F31.62 [facility] [address] [id number] [address] [place] [phone] Dec, [facility] [address] [id number] [address] [place] [phone] Dec, [facility] [address] [id number] [address] [place] [phone] Dec, [facility] [address] [facility] [id number] [address] [place] [address] Dec, [facility] [address] [id number] [address] [place] [address] Nov, Reactive airway disease J45. 909 [facility] [address] [id number] [address] [place] [address] Nov, [facility] [address] [id number] [address] [place] [phone] Nov, [facility] [address] [id number] [address] [place] [phone] Nov, [facility] [address] [id number] [address] [place] [id number] Nov, [place] [address] [address] Nov, Onychomycosis B35.1 ; Hammer toe M20.40 ; [place] or callus L84 and DM neuro manif type II E11.49 [place] [address] [address] Nov, Chronic pain G89.29 ; Leukoc ytosis D72.829 and Diabetes E11.9 [place] [address] [address] Nov, [place] [address] [phone] Oct, Bronchitis J40 [place] [address] [address] Oct, [place] [address] [address] Oct, [place] [address] [address] Oct, Mastoiditis, unspecified lat erality H70.90 and Type 2 diabetes mellitus with complication E11.8 [place] [address] [address] Sep, [place] [address] [address] Sep, Dysuria R30.0 ; Cough R05 ; Benign prostatic hyperplasia with lower urinary tract symptoms, unspecified morphology N40.1 ; Hypokalemia E87.6 and Eustachian tube dysfunction, unspecified laterality H69.80 [place] [address] [address] Sep, Moderate mixed bipolar I dis order F31.[address] [address] Sep, Hypokalemia E87.6 [facility] [address] [id number] [address] [place] [address] Sep, [facility] [address] [facility] [id number] [address] [place] [address] Sep, Upper respiratory tract infe ction, unspecified type J06.9 [facility] [address] [facility] [id number] [address] [place] [id number] Aug, [facility] [address] [id number] [address] [place] [address] Aug, Dysuria R30.0 [facility] [address] [facility] [id number] [address] [place] [id number] Aug, [facility] [address] [facility] [id number] [address] [place] [id number] Jul, [facility] [address] [facility] [id number] [address] [place] [phone] Jul, [facility] [address] [facility] [id number] [address] [place] [id number] Jul, [facility] [address] [facility] [id number] [address] [place] [phone] Jul, [facility] [address] [facility] [id number] [address] [place] [phone] Jun, [facility] [address] [id number] [address] [place] [id number] Jun, [facility] [address] [facility] [id number] [address] [place] [phone] Jun, [facility] [address] [facility] [id number] [address] [place] [id number] May, [facility] [address] [facility] [id number] [address] [place] [id number] May, Bipolar I disorder, most rec ent episode (or current) mixed, moderate 296.62 [facility] [address] [facility] [id number] [address] [place] [address] May, [facility] [address] [facility] [id number] [address] [place] [address] May, Bipolar I disorder, most rec ent episode (or current) mixed, moderate 296.62 and Major depressive disorder, recurrent episode, severe, specified as with psychotic behavior 296.34 [facility] [address] [facility] [id number] [address] [place] [id number] May, Bipolar I disorder, most rec ent episode (or current) mixed, moderate 296.62 [facility] [address] [facility] [id number] [address] [place] [address] May, [facility] [address] [place] [id number] [address] [place] [address] Apr, [facility] [address] [place] [id number] [address] [place] [address] Apr, [facility] [address] [place] [id number] [address] [place] [address] Apr, Unspecified disorder of kidn ey and ureter 593.9 and Diabetes mellitus type 2, uncontrolled 250.02 [facility] [address] [place] [id number] [address] [place] [address] Apr, [facility] [address] [facility] [id number] [address] [place] [id number] Apr, [facility] [address] [place] [id number] [address] [place] [phone] Apr, [facility] [address] [facility] [id number] [address] [place] [address] Apr, [facility] [address] [place] [id number] [address] [place] [id number] Apr, Diabetes mellitus type II, u ncontrolled 250.02 [facility] [address] [facility] [id number] [address] [place] [id number] Apr, [facility] [address] [place] [id number] [address] [place] [phone] Mar, [facility] [address] [place] [id number] [address] [place] [id number] Mar, [facility] [address] [place] [id number] [address] [place] [phone] Mar, [facility] [address] [place] [id number] [place] [address] Mar, Major depressive disorder, r ecurrent episode, severe, specified as with psychotic behavior 296.34 and Bipolar I disorder, most recent episode (or current) mixed, moderate 296.62 [facility] [address] [place] [id number] [place] [address] Mar, Diabetes 250.00 ; Anuria 788 .5 ; Nausea and vomiting 787.01 and Diarrhea 787.91 [facility] [address] [place] [id number] [address] [place] [address] Mar, Diabetes 250.00 [facility] [address] [place] [id number] [address] [place] [address] Mar, [facility] [address] [place] [id number] [address] [place] [address] Mar, Diabetes 250.00 [facility] [address] [place] [id number] [address] [place] [id number] Mar, [facility] [address] [place] [id number] [address] [place] [phone] Mar, [facility] [address] [place] [id number] [address] [place] [address] Mar, [facility] [address] [place] [id number] [address] [place] [id number] Mar, [facility] [address] [place] [id number] [address] [place] [address] Mar, Bipolar I disorder, most rec ent episode (or current) mixed, moderate 296.62 and Major depressive disorder, recurrent episode, severe, specified as with psychotic behavior 296.[address] [address] Mar, Magnesium deficiency 275.2 ; Hypokalemia 276.8 ; Nausea & vomiting 787.01 and Diabetes mellitus type 2, uncontrolled 250.[address] [address] Feb, [address] [address] Feb, Bipolar I disorder, most rec ent episode (or current) mixed, moderate 296.[address] [address] Feb, Nausea and vomiting 787.01 ; Left elbow pain 719.42 ; Anuria 788.5 and Diabetes 250.[address] [address] Feb, [address] [address] Feb, Hypopotassemia 276.8 and Hyp okalemia 276.[address] [address] Feb, Hypopotassemia 276.8 and Hyp okalemia 276.[address] [address] Feb, Seborrheic keratoses 702.[address] [address] Feb, Hypopotassemia 276.8 and Low magnesium levels 275.[address] [address] January, [address] [address] January, [facility] [address] [id number] [address] [place] [address] January, [facility] [address] [id number] [address] [place] [address] January, Scalp lesion 709.9 [facility] [address] [id number] [address] [place] [id number] January, [facility] [address] [id number] [address] [place] [id number] Dec, Tear of medial cartilage or meniscus of knee, current 836.0 and 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 [facility] [address] [id number] [address] [place] [address] Dec, [facility] [address] [id number] [address] [place] [phone] Dec, [facility] [address] [id number] [address] [place] [id number] Dec, Squamous cell carcinoma, 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 [facility] [address] [id number] [address] [place] [phone] Dec, [facility] [address] [id number] [address] [place] [phone] Dec, [facility] [address] [id number] [address] [place] [phone] Nov, [facility] [address] [id number] [address] [place] [id number] Nov, [facility] [address] [id number] [address] [place] [id number] Nov, [facility] [address] [id number] [address] [place] [id number] Nov, [facility] [address] [id number] [address] [place] [id number] Nov, [facility] [address] [id number] [address] [place] [address], [place] [address] Nov, 2014 [facility] [address] [id number] [address] [place] [address], [place] [id number] Nov, [facility] [address] [id number] [address] [place] [address], [place] [address] Nov, 2014 [facility] [address] [id number] [address] [place] [address], [place] [id number] Nov, 2014 [facility] [address] [id number] [address] [place] [address], [place] [id number] Nov, 2014 [facility] [address] [id number] [address] [place] [address], [place] [id number] Nov, [facility] [address] [id number] [address] [place] [address], [place] [id number] Nov, [facility] [address] [id number] [address] [place] [address], [place] [id number] Oct, 2014 [facility] [address] [id number] [address] [place] [address], [place] [address] Oct, 2014 [facility] [address] [id number] [address] [place] [address], [place] [id number] Oct, 2014 [facility] [address] [id number] [address] [place] [id number] Oct, 2014 [facility] [address] [id number] [address] [place] [id number] Oct, 2014 [facility] [address] [id number] [address] [place] [address], [place] [id number] Oct, 2014 [facility] [address] [id number] [address] [place] [address], [place] [id number] Oct, 2014 [facility] [address] [id number] [address] [place] [id number] Oct, 2014 [facility] [address] [id number] [address] [place] [id number] Oct, [facility] [address] [id number] [address] [place] [address], [place] [id number] Sep, [facility] [address] [id number] [address] [place] [address], [place] [id number] Sep, [facility] [address] [id number] [address] [place] [address], [place] [id number] Sep, [facility] [address] [id number] [address] [place] [address], [place] [id number] Sep, [facility] [address] [id number] [address] [place] [address], [place] [id number] Sep, [facility] [address] [id number] [address] [place] [address], [place] [id number] Sep, [facility] [address] [id number] [address] [place] [address], [place] [id number] Sep, [facility] [address] [id number] [address] [place] [address], [place] [id number] Sep, [facility] [address] [id number] [address] [place] [address], [place] [id number] Sep, [facility] [address] [id number] [address] [place] [address], [place] [id number] Sep, [facility] [address] [id number] [address] [place] [address], [place] [address] Sep, [facility] [address] [id number] [address] [place] [address], [place] [address] Sep, [facility] [address] [id number] [address] [place] [address], [place] [address] Sep, [facility] [address] [id number] [address] [place] [address], [place] [address] Sep, [facility] [address] [id number] [address] [place] [address], [place] [address] Sep, [facility] [address] [id number] [address] [place] [address], [place] [address] Sep, [facility] [address] [id number] [address] [place] [address], [place] [address] Aug, [facility] [address] [id number] [facility] [place] [address] Aug, [facility] [address] [id number] [address] [place] [address], [place] [address] Aug, [facility] [address] [id number] [address] [place] [address], [place] [address] Aug, [facility] [address] [id number] [address] [place] [address], [place] [address] Aug, [facility] [address] [id number] [address] [place] [address], [place] [address] Aug, [facility] [address] [id number] [address] [place] [address], [place] [address] Aug, [facility] [address] [id number] [address] [place] [address], [place] [address] Aug, [facility] [address] [id number] [address] [place] [address], [place] [address] Aug, [facility] [address] [id number] [address] [place] [address], [place] [address] Aug, [facility] [address] [id number] [address] [place] [address], [place] [address] Aug, [facility] [address] [place] [id number] Aug, [facility] [address] [id number] [address] [place] [address], [place] [address] Aug, [facility] [address] [id number] [address] [place] [address], [place] [address] Aug, [facility] [address] [id number] [address] [place] [address], [place] [address] Aug, [facility] [address] [id number] [address] [place] [address], [place] [address] Aug, [facility] [address] [id number] [address] [place] [address], [place] [address] Aug, [facility] [address] [id number] [address] [place] [address], [place] [address] Aug, [facility] [address] [id number] [address] [place] [address], [place] [address] Aug, [facility] [address] [id number] [address] [place] [address], [place] [address] Aug, [facility] [address] [id number] [address] [place] [address], [place] [address] Aug, [facility] [address] [id number] [address] [place] [address], [place] [address] Aug, [facility] [address] [id number] [address] [place] [address], [place] [address] Aug, [facility] [address] [id number] [address] [place] [address], [place] [address] Aug, [facility] [address] [id number] [address] [place] [address], [place] [address] Aug, [facility] [address] [id number] [address] [place] [address], [place] [address] Aug, [facility] [address] [id number] [address] [place] [address], [place] [address] Aug, [facility] [address] [id number] [address] [place] [address], [place] [address] Aug, [facility] [address] [id number] [address] [place] [address], [place] [address] Aug, [facility] [address] [id number] [address] [place] [address], [place] [address] Aug, [facility] [address] [id number] [address] [place] [address], [place] [address] Jul, [facility] [address] [id number] [address] [place] [address], [place] [address] Jul, [facility] [address] [id number] [address] [place] [address], [place] [address] Jul, [facility] [address] [id number] [address] [place] [address], [place] [address] Jul, [facility] [address] [id number] [address] [place] [address], [place] [address] Jul, [facility] [address] [id number] [address] [place] [address], [place] [address] Jul, [facility] [address] [id number] [address] [place] [address], [place] [address] Jul, [facility] [address] [id number] [address] [place] [address], [place] [address] Jul, [facility] [address] [id number] [address] [place] [address], [place] [address] Jul, [facility] [address] [id number] [address] [place] [address], [place] [address] Jul, [facility] [address] [id number] [address] [place] [address], [place] [address] Jun, [facility] [address] [id number] [address] [place] [address], [place] [address] Jun, [facility] [address] [id number] [address] [place] [address] 16 Jun, 2014 [facility] [address] [id number] [address] [place] [address], [place] [address] 16 Jun, 2014 [facility] [address] [id number] [address] [place] [address], [place] [address] 15 Jun, 2014 [facility] [address] [id number] [address] [place] [address], [place] [address] 15 Jun, 2014 [facility] [address] [id number] [address] [place] [address], [place] [address] 05 Jun, 2014 [facility] [address] [id number] [address] [place] [address], [place] [address] Jun, [facility] [address] [id number] [address] [place] [address], [place] [address] Jun, [facility] [address] [id number] [address] [place] [address], [place] [address] Jun, [facility] [address] [id number] [address] [place] [address], [place] [address] 29 May, 2013 [facility] [address] [id number] [address] [place] [address], [place] [address] 29 May, 2013 [facility] [address] [id number] [address] [place] [address], [place] [address] 26 May, 2013 [facility] [address] [id number] [address] [place] [address], [place] [address] 26 May, 2013 [facility] [address] [id number] [address] [place] [address], [place] [address] 17 May, 2013 [facility] [address] [id number] [address] [place] [address], [place] [address] 17 May, 2013 [facility] [address] [id number] [address] [place] [address], [place] [address] 15 May, 2013 [facility] [address] [id number] [address] [place] [address], [place] [address] 15 Sep, 2013 [facility] [address] [id number] [address] [place] [address], [place] [address] 15 Sep, 2013 [facility] [address] [id number] [address] [place] [address], [place] [address] 15 May, 2013 [facility] [address] [id number] [address] [place] [address], [place] [address] 10 May, 2013 [facility] [address] [id number] [address] [place] [address], [place] [address] May, [facility] [address] [id number] [facility] [place] [address] May, [facility] [address] [id number] [address] [place] [address], [place] [address] May, [facility] [address] [id number] [address] [place] [address], [place] [address] May, [facility] [address] [id number] [address] [place] [address], [place] [address] May, [facility] [address] [id number] [address] [place] [address], [place] [address] Apr, [facility] [address] [id number] [address] [place] [address], [place] [address] Apr, [facility] [address] [id number] [address] [place] [address], [place] [address] Apr, [facility] [address] [id number] [address] [place] [address], [place] [address] Apr, [facility] [address] [id number] [address] [place] [address], [place] [address] Apr, [facility] [address] [id number] [address] [place] [address], [place] [address] Apr, [facility] [address] [id number] [address] [place] [address], [place] [address] Apr, [facility] [address] [id number] [address] [place] [address], [place] [address] Apr, [facility] [address] [id number] [address] [place] [address], [place] [address] Apr, [facility] [address] [id number] [address] [place] [address], [place] [address] Apr, [facility] [address] [id number] [address] [place] [address], [place] [address] Apr, [facility] [address] [id number] [address] [place] [address], [place] [address] Apr, [facility] [address] [id number] [address] [place] [address], [place] [address] Apr, [facility] [address] [id number] [address] [place] [address], [place] [address] Apr, [facility] [address] [id number] [address] [place] [address], [place] [address] Apr, [facility] [address] [id number] [address] [place] [address], [place] [address] Mar, [facility] [address] [id number] [address] [place] [address], [place] [address] Mar, [facility] [address] [id number] [address] [place] [address], [place] [address] Mar, [facility] [address] [id number] [address] [place] [address], [place] [address] Mar, [facility] [address] [id number] [address] [place] [address], [place] [address] Mar, [facility] [address] [id number] [address] [place] [address], [place] [address] Mar, [facility] [address] [id number] [address] [place] [address], [place] [address] Mar, [facility] [address] [id number] [address] [place] [address], [place] [address] Mar, [facility] [address] [id number] [address] [place] [address], [place] [address] Mar, [facility] [address] [id number] [address] [place] [address], [place] [address] Mar, [facility] [address] [id number] [address] [place] [address], [place] [address] Mar, [facility] [address] [id number] [address] [place] [address], [place] [address] Mar, [facility] [address] [id number] [facility] [place] [address] Mar, 2013 [facility] [address] [id number] [facility] [place] [address] Mar, 2013 [facility] [address] [id number] [facility] [place] [address] Mar, 2013 [facility] [address] [id number] [facility] [place] [address] Mar, 2013 [facility] [address] [id number] [facility] [place] [address] Mar, 2013 [facility] [address] [id number] [address] [place] [address], [place] [address] Mar, [facility] [address] [id number] [address] [place] [address], [place] [address] Feb, [facility] [address] [id number] [address] [place] [address], [place] [address] Feb, [facility] [address] [id number] [address] [place] [address], [place] [address] Feb, [facility] [address] [id number] [address] [place] [address], [place] [address] Feb, [facility] [address] [id number] [address] [place] [address], [place] [address] Feb, [facility] [address] [id number] [address] [place] [address], [place] [address] Feb, [facility] [address] [id number] [address] [place] [address], [place] [address] Feb, [facility] [address] [id number] [address] [place] [address], [place] [address] Feb, [facility] [address] [id number] [address] [place] [address], [place] [address] Feb, [facility] [address] [id number] [address] [place] [address], [place] [address] Feb, [facility] [address] [id number] [facility] [place] [address] Feb, [facility] [address] [id number] [facility] [place] [address] Feb, [facility] [address] [id number] [facility] [place] [address] Feb, [facility] [address] [id number] [address] [place] [address], [place] [address] Feb, [facility] [address] [id number] [facility] [place] [address] January, [facility] [address] [id number] [address] [place] [address], [place] [address] January, [facility] [address] [id number] [address] [place] [address], [place] [address] January, [facility] [address] [id number] [address] [place] [address], [place] [address] January, [facility] [address] [id number] [address] [place] [address], [place] [address] January, [facility] [address] [id number] [address] [place] [address], [place] [address] January, [facility] [address] [id number] [address] [place] [address], [place] [address] January, [facility] [address] [id number] [address] [place] [address], [place] [address] January, [facility] [address] [id number] [address] [place] [address], [place] [address] January, [facility] [address] [id number] [address] [place] [address], [place] [address] January, [facility] [address] [id number] [facility] [place] [address] January, [facility] [address] [id number] [facility] [place] [address] January, [facility] [address] [id number] [address] [place] [address], [place] [address] January, [facility] [address] [id number] [address] [place] [address], [place] [address] January, [facility] [address] [id number] [address] [place] [address], [place] [address] Dec, [facility] [address] [id number] [address] [place] [address], [place] [address] Dec, [facility] [address] [id number] [address] [place] [address], [place] [address] Dec, [facility] [address] [id number] [address] [place] [address], [place] [address] Dec, [facility] [address] [id number] [address] [place] [address], [place] [address] Dec, [facility] [address] [id number] [address] [place] [address], [place] [address] Dec, [facility] [address] [id number] [address] [place] [address], [place] [address] Dec, [facility] [address] [id number] [address] [place] [address], [place] [address] Dec, [facility] [address] [id number] [address] [place] [address], [place] [address] Dec, [facility] [address] [id number] [address] [place] [address], [place] [address] Dec, [facility] [address] [id number] [address] [place] [address], [place] [address] Nov, [facility] [address] [id number] [address] [place] [address], [place] [address] Nov, [facility] [address] [id number] [address] [place] [address], [place] [address] Nov, [facility] [address] [id number] [facility] [place] [address] Nov, [facility] [address] [id number] [address] [place] [address], [place] [address] Nov, [facility] [address] [id number] [facility] [place] [address] Nov, [facility] [address] [id number] [address] [place] [address], [place] [address] Nov, [facility] [address] [id number] [address] [place] [address], [place] [address] Nov, [facility] [address] [id number] [address] [place] [address], [place] [address] Nov, [facility] [address] [id number] [address] [place] [address], [place] [address] Nov, [facility] [address] [id number] [address] [place] [address], [place] [address] Oct, [facility] [address] [id number] [address] [place] [address], [place] [address] Oct, [facility] [address] [id number] [address] [place] [address], [place] [address] Oct, [facility] [address] [id number] [address] [place] [address], [place] [address] Oct, [facility] [address] [id number] [address] [place] [address], [place] [address] Oct, [facility] [address] [id number] [address] [place] [address], [place] [address] Oct, [facility] [address] [id number] [address] [place] [address], [place] [address] 14 Oct, 2013 [facility] [address] [id number] [address] [place] [address], [place] [address] Oct, [facility] [address] [id number] [address] [place] [address], [place] [address] 05 Oct, 2013 [facility] [address] [id number] [address] [place] [address], [place] [address] Oct, [facility] [address] [id number] [address] [place] [address], [place] [id number] Oct, [facility] [address] [id number] [address] [place] [address], [place] [address] Oct, [facility] [address] [id number] [address] [place] [address], [place] [address] Oct, [facility] [address] [id number] [address] [place] [address], [place] [address] Oct, [facility] [address] [id number] [address] [place] [address], [place] [address] Sep, [facility] [address] [id number] [address] [place] [address], [place] [address] Sep, [facility] [address] [id number] [address] [place] [address], [place] [address] Sep, [facility] [address] [id number] [address] [place] [address], [place] [address] Sep, [facility] [address] [id number] [address] [place] [address], [place] [address] Sep, [facility] [address] [id number] [address] [place] [address], [place] [address] Sep, [facility] [address] [id number] [address] [place] [address], [place] [address] Sep, [facility] [address] [id number] [address] [place] [address], [place] [address] Sep, [facility] [address] [id number] [address] [place] [address], [place] [address] Sep, [facility] [address] [id number] [address] [place] [address], [place] [address] Sep, [facility] [address] [id number] [address] [place] [address], [place] [address] Aug, [facility] [address] [id number] [address] [place] [address], [place] [address] Aug, [facility] [address] [id number] [address] [place] [address], [place] [address] Jul, [facility] [address] [id number] [address] [place] [address], [place] [address] Jul, [facility] [address] [id number] [address] [place] [address], [place] [address] Jul, [facility] [address] [id number] [address] [place] [address], [place] [address] Jul, [facility] [address] [id number] [address] [place] [address], [place] [address] Jul, [facility] [address] [id number] [address] [place] [address], [place] [address] Jul, [facility] [address] [id number] [address] [place] [address], [place] [address] Jul, [facility] [address] [id number] [address] [place] [address], [place] [address] Jul, [facility] [address] [id number] [address] [place] [address], [place] [address] Jul, [facility] [address] [id number] [address] [place] [address] Jul, [facility] [address] [id number] [address] [place] [address], [place] [address] Jul, [facility] [address] [id number] [address] [place] [address], [place] [address] Jul, [facility] [address] [id number] [address] [place] [address], [place] [address] Jul, [facility] [address] [id number] [address] [place] [address], [place] [address] 05 Jul, 2012 [facility] [address] [id number] [address] [place] [address], [place] [id number] Jul, 2012 [facility] [address] [id number] [address] [place] [address], [place] [address] Jul, 2012 [facility] [address] [id number] [address] [place] [address], [place] [address] Jul, 2012 [facility] [address] [id number] [address] [place] [address], [place] [address] Jul, 2012 [facility] [address] [id number] [address] [place] [address], [place] [address] Jul, 2012 [facility] [address] [id number] [address] [place] [address], [place] [address] Jun, 2012 [facility] [address] [id number] [address] [place] [address], [place] [address] 16 Jun, 2012 [facility] [address] [id number] [address] [place] [address], [place] [address] Jun, 2012 [facility] [address] [id number] [address] [place] [address], [place] [address] Jun, 2012 [facility] [address] [id number] [address] [place] [address], [place] [address] 16 Jun, 2012 [facility] [address] [id number] [address] [place] [address], [place] [address] 16 Jun, 2012 [facility] [address] [id number] [address] [place] [id number] 10 Jun, 2012 [facility] [address] [id number] [address] [place] [address], [place] [address] 10 Jun, 2012 [facility] [address] [id number] [address] [place] [address], [place] [address] 09 Jun, 2012 [facility] [facility] [address] [id number] [address] [place] [address] 09 Jun2012 [facility] [address] [id number] [address] [place] [address], [place] [address] Jun, [facility] [address] [id number] [address] [place] [address], [place] [address] May, 2012 [facility] [address] [id number] [address] [place] [address], [place] [address] 25 May, 2012 [facility] [address] [id number] [address] [place] [address], [place] [address] 19 May, 2012 [facility] [address] [id number] [address] [place] [address], [place] [address] 17 May, 2012 [facility] [address] [id number] [address] [place] [address], [place] [address] May, [facility] [address] [id number] [address] [place] [address], [place] [address] May, [facility] [address] [id number] [address] [place] [address], [place] [address] May, [facility] [address] [id number] [address] [place] [address], [place] [address] May, [facility] [address] [id number] [address] [place] [address], [place] [address] Apr, [facility] [address] [id number] [address] [place] [address], [place] [address] Apr, [facility] [address] [id number] [address] [place] [address], [place] [address] Apr, [facility] [address] [id number] [address] [place] [address], [place] [address] Apr, [facility] [address] [id number] [address] [place] [address], [place] [address] Apr, [facility] [address] [id number] [address] [place] [address], [place] [address] Mar, [facility] [address] [id number] [address] [place] [address], [place] [address] Mar, [facility] [address] [id number] [address] [place] [address], [place] [address] Mar, [facility] [address] [id number] [address] [place] [address], [place] [address] Mar, [facility] [address] [id number] [address] [place] [address], [place] [address] Mar, [facility] [address] [id number] [address] [place] [address], [place] [address] Mar, [facility] [address] [id number] [address] [place] [address], [place] [address] Mar, [facility] [address] [id number] [address] [place] [address], [place] [address] Mar, [facility] [address] [id number] [address] [place] [address], [place] [address] Feb, [facility] [address] [id number] [address] [place] [address], [place] [address] Feb, [facility] [address] [id number] [address] [place] [address], [place] [address] January, [facility] [address] [id number] [address] [place] [address], [place] [address] January, [facility] [address] [id number] [address] [place] [address], [place] [address] Dec, [facility] [address] [id number] [address] [place] [address], [place] [address] Dec, [facility] [address] [id number] [address] [place] [address], [place] [address] Nov, [facility] [address] [id number] [address] [place] [address], [place] [address] Nov, [facility] [address] [id number] [address] [place] [address], [place] [address] Nov, [facility] [address] [id number] [address] [place] [address], [place] [address] 14 Nov, 2012 [facility] [address] [id number] [address] [place] [address], [place] [address] Oct, [facility] [address] [id number] [address] [place] [address], [place] [address] Oct, [facility] [address] [id number] [address] [place] [address], [place] [address] Oct, [facility] [address] [id number] [address] [place] [address], [place] [address] Oct, [facility] [address] [id number] [address] [place] [address], [place] [address] 16 Oct, 2012 [facility] [address] [id number] [address] [place] [address], [place] [address] 14 Oct, 2012 [facility] [address] [id number] [address] [place] [address], [place] [address] 08 Oct, 2012 [facility] [address] [id number] [address] [place] [address], [place] [address] 07 Oct, 2012 [facility] [address] [id number] [address] [place] [address], [place] [address] 03 Oct, 2012 [facility] [address] [id number] [address] [place] [address], [place] [address] 30 Sep, 2012 [facility] [address] [id number] [address] [place] [address], [place] [address] Sep, [facility] [address] [id number] [address] [place] [address], [place] [address] Sep, [facility] [address] [id number] [address] [place] [address], [place] [address] Sep, [facility] [address] [id number] [address] [place] [address], [place] [address] 17 Sep, 2012 [facility] [address] [id number] [address] [place] [address], [place] [address] Sep, [facility] [address] [id number] [address] [place] [address], [place] [address] Sep, [facility] [address] [id number] [address] [place] [address], [place] [address] Sep, [facility] [address] [id number] [address] [place] [address], [place] [address] Aug, [facility] [address] [id number] [address] [place] [address], [place] [address] Aug, [facility] [address] [id number] [address] [place] [address], [place] [address] Aug, [facility] [address] [id number] [address] [place] [address], [place] [address] Aug, [facility] [address] [id number] [address] [place] [address], [place] [address] Aug, [facility] [address] [id number] [address] [place] [address], [place] [address] Aug, [facility] [address] [id number] [address] [place] [address], [place] [address] Aug, [facility] [address] [id number] [address] [place] [address], [place] [address] Aug, [facility] [address] [id number] [address] [place] [address], [place] [address] Jul, [facility] [address] [id number] [address] [place] [address], [place] [address] Jul, [facility] [address] [id number] [address] [place] [address], [place] [address] Jul, [facility] [address] [id number] [address] [place] [address], [place] [address] Jul, [facility] [address] [id number] [address] [place] [address], [place] [address] Jul, [facility] [address] [id number] [address] [place] [address], [place] [address] Jul, [facility] [address] [id number] [address] [place] [address], [place] [address] Jun, [facility] [address] [id number] [address] [place] [address], [place] [address] Jun, [facility] [address] [id number] [address] [place] [address], [place] [address] Jun, [facility] [address] [id number] [address] [place] [address], [place] [address] Jun, [facility] [address] [id number] [address] [place] [address], [place] [address] Jun, [facility] [address] [id number] [address] [place] [address], [place] [address] Jun, [facility] [address] [id number] [address] [place] [address], [place] [address] Jun, [facility] [address] [id number] [address] [place] [address], [place] [address] Jun, [facility] [address] [id number] [address] [place] [address], [place] [address] 10 Jun, 2012 [facility] [address] [id number] [address] [place] [address], [place] [address] 26 May, 2012 [facility] [address] [id number] [address] [place] [address], [place] [address] 24 May, 2012 [facility] [address] [id number] [address] [place] [address], [place] [address] 18 May, 2012 [facility] [address] [id number] [address] [place] [address], [place] [address] 30 Apr, 2012 [facility] [address] [id number] [address] [place] [address], [place] [address] Apr, [facility] [address] [id number] [address] [place] [address], [place] [address] Apr, [facility] [address] [id number] [address] [place] [address], [place] [address] Apr, [facility] [address] [id number] [address] [place] [address], [place] [address] Apr, [facility] [address] [id number] [address] [place] [address], [place] [address] Apr, [facility] [address] [id number] [address] [place] [address], [place] [address] Mar, [facility] [address] [id number] [address] [place] [address], [place] [address] Mar, [facility] [address] [id number] [address] [place] [address], [place] [address] Mar, [facility] [address] [id number] [address] [place] [address], [place] [address] Mar, [facility] [address] [id number] [address] [place] [address], [place] [address] Feb, [facility] [address] [id number] [address] [place] [address], [place] [address] Feb, [facility] [address] [id number] [address] [place] [address], [place] [address] Feb, [facility] [address] [id number] [address] [place] [address], [place] [address] Feb, [facility] [address] [id number] [address] [place] [address], [place] [address] Feb, [facility] [address] [id number] [address] [place] [address], [place] [address] January, [facility] [address] [id number] [address] [place] [address], [place] [address] January, [facility] [address] [id number] [address] [place] [address], [place] [address] January, [facility] [address] [id number] [address] [place] [address], [place] [address] January, [facility] [address] [id number] [address] [place] [address], [place] [address] January, [facility] [address] [id number] [address] [place] [address], [place] [address] January, [facility] [address] [id number] [address] [place] [address], [place] [address] Dec, [facility] [address] [id number] [address] [place] [address], [place] [address] Dec, [facility] [address] [id number] [address] [place] [address], [place] [address] Dec, [facility] [address] [id number] [address] [place] [address], [place] [address] Dec, [facility] [address] [id number] [address] [place] [address], [place] [address] Dec, [facility] [address] [id number] [address] [place] [address], [place] [address] Nov, [facility] [address] [id number] [address] [place] [address], [place] [address] Nov, [facility] [address] [id number] [address] [place] [address], [place] [address] Nov, [facility] [address] [id number] [address] [place] [address], [place] [address] Nov, [facility] [address] [id number] [address] [place] [address], [place] [address] Oct, [facility] [address] [id number] [address] [place] [address], [place] [address] Oct, [facility] [address] [id number] [address] [place] [address], [place] [address] 24 Oct, 2011 [facility] [address] [id number] [address] [place] [address], [place] [address] 13 Oct, 2011 [facility] [address] [id number] [address] [place] [address], [place] [address] Oct, [facility] [address] [id number] [address] [place] [address], [place] [address] Sep, [facility] [address] [id number] [address] [place] [address], [place] [address] Sep, [facility] [address] [id number] [address] [place] [address], [place] [address] Sep, [facility] [address] [id number] [address] [place] [address], [place] [address] Sep, [facility] [address] [id number] [address] [place] [address], [place] [address] Sep, [facility] [address] [id number] [address] [place] [address], [place] [address] Sep, [facility] [address] [id number] [address] [place] [address], [place] [address] Aug, [facility] [address] [id number] [address] [place] [address], [place] [address] Aug, [facility] [address] [id number] [address] [place] [address], [place] [address] Aug, [facility] [address] [id number] [address] [place] [address], [place] [address] Jul, [facility] [address] [id number] [address] [place] [address], [place] [address] Jul, [facility] [address] [id number] [address] [place] [address], [place] [address] Jul, [facility] [address] [id number] [address] [place] [address], [place] [address] Jul, [facility] [address] [id number] [address] [place] [address], [place] [address] Jun, [facility] [address] [id number] [address] [place] [address], [place] [address] 31 Jun, 2011 [facility] [address] [id number] [address] [place] [address], [place] [address] 18 Jun, 2011 [facility] [address] [id number] [address] [place] [address], [place] [address] 10 Jun, 2011 [facility] [address] [id number] [address] [place] [address], [place] [address] 10 Jun, 2011 [facility] [address] [id number] [address] [place] [address], [place] [address] 10 Jun, 2011 [facility] [address] [id number] [address] [place] [address], [place] [address] 11 Mar, 2011 [facility] [address] [id number] [address] [place] [address], [place] [address] 18 Dec, 2010 [facility] [address] [id number] [address] [place] [address], [place] [address] 11 Dec, 2010 [facility] [address] [id number] [address] [place] [address], [place] [address] 18 Nov, 2010 [facility] [address] [id number] [address] [place] [address], [place] [address] 16 Nov, 2010 [facility] [address] [id number] [address] [place] [address], [place] [address] Sep, [facility] [address] [id number] [address] [place] [address], [place] [address] 31 Aug, 2010 [facility] [address] [id number] [address] [place] [address], [place] [address] Aug, [facility] [address] [id number] [address] [place] [address], [place] [address] Aug, [facility] [address] [id number] [address] [place] [address], [place] [address] Aug, [facility] [address] [id number] [address] [place] [address], [place] [address] Aug, [facility] [address] [id number] [address] [place] [address], [place] [address] 14 Aug, 2010 [facility] [address] [id number] [address] [place] [address], [place] [address] 08 Aug, 2010 [facility] [address] [id number] [address] [place] [address], [place] [address] 08 Aug, 2010 [facility] [address] [id number] [address] [place] [address], [place] [address] 07 Aug, 2010 [facility] [address] [id number] [address] [place] [address], [place] [address] 06 Aug, 2010 [facility] [address] [id number] [address] [place] [address], [place] [address] Aug, [facility] [address] [id number] [address] [place] [address], [place] [address] Aug, [facility] [address] [id number] [address] [place] [address], [place] [address] Jul, [facility] [address] [id number] [address] [place] [address], [place] [address] 30 Jul, 2010 [facility] [address] [id number] [address] [place] [address], [place] [address] Jul, [facility] [address] [id number] [address] [place] [address], [place] [address] 17 Jul, 2010 [facility] [address] [id number] [address] [place] [address], [place] [address] Jul, [facility] [address] [id number] [address] [place] [address], [place] [id number] Jul, [facility] [address] [id number] [address] [place] [address], [place] [id number] Jun, [facility] [address] [id number] [address] [place] [address], [place] [id number] Jun, [facility] [address] [id number] [address] [place] [address], [place] [id number] Jun, [facility] [address] [id number] [address] [place] [address], [place] [id number] 13 Jun, 2010 [facility] [address] [id number] [address] [place] [address], [place] [id number] 16 Apr, 2010 [facility] [address] [id number] [address] [place] [address], [place] [id number] Mar, [facility] [address] [id number] [address] [place] [address], [place] [id number] Feb, [facility] [address] [id number] [address] [place] [address], [place] [id number] January, [facility] [address] [id number] [address] [place] [address], [place] [id number] 15 Dec, 2009 [facility] [address] [id number] [address] [place] [address], [place] [id number] Nov, [facility] [address] [id number] [address] [place] [id number] Aug, [facility] [address] [id number] [address] [place] [address], [place] [address] Aug, [facility] [address] [id number] [address] [place] [id number] Aug, [facility] [address] [id number] [address] [place] [id number] Jul, [facility] [address] [id number] [address] [place] [id number] Jul, [facility] [address] [id number] [address] [place] [id number] Jul, [facility] [address] [id number] [address] [place] [id number] 30 Jun, 2009 [facility] [address] [id number] [address] [place] [id number] 29 Jun, 2009 [facility] [address] [id number] [address] [place] [id number] Jun, [facility] [address] [facility] [id number] [address] [place] [phone] Jun, [facility] [address] [facility] [id number] [address] [place] [phone] Jun, [facility] [address] [facility] [id number] [address] [place] [id number] Jun, [facility] [address] [facility] [id number] [address] [place] [id number] Apr, [facility] [address] [facility] [id number] [address] [place] [id number] Apr, [facility] [address] [facility] [id number] [address] [place] [id number] Feb, [facility] [address] [facility] [id number] [address] [place] [phone] January, [facility] [address] [facility] [id number] [address] [place] [id number] Dec, IMMUNIZATIONS No Known Immunizations SOCIAL HISTORY [...] History inability to urinate 09/16/15 Hospitalization History [facility] mental health ea rly 2000's Hospitalization History hyperkalemia 10/2017 Hospitalization History fluid in lung
--- OUTSIDE RECORDS SUMMARY | 2020-03-01 17:21 | XMS REPORT ---
Author Author Michele Lazaro Organization [facility] Address Unknown Care Team Providers Care Burial Vault Maker Name Role Phone ALYSE Lazaro Unavailable PROBLEMS Type Condition ICD9-CM Code GZU75-AK Code Onset Dates Condition S tatus SNOMED Code Problem Cough R05 Active 68112715 Problem Benign prostatic hyperplasia with lower urinary tract symptoms, unspecified morphology N40.1 Active 22864 6007 Problem Eustachian tube dysfunction, unspecified laterality H69.80 Active 64274498 Problem Chronic pain G89.29 Active 9209768 1 Problem DM neuro manif type II E11.49 Active 88893788 Problem Diabetes E11.9 Active 72605655 Problem Leukocytosis D72.829 Active 8350569 06 Problem Falling R29.6 Active 995499145 Problem Pressure ulcer of other site, stage 3 L89.893 Active 105528446 Problem 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 Active 959013281 Problem Eye exam abnormal R93.8 Active 16 1091326 Problem Dysuria R30.0 Active 42385852 Problem Hypokalemia E87.6 Active 93935309 Problem Morbid obesity E66.01 Active 46489 6002 Problem Anxiety F41.9 Active 36872945 Problem Diabetic polyneuropathy associated with type 2 d iabetes mellitus E11.42 Active 05732816 Problem Essential hypertension I10 Active 04269791 Problem Bilateral primary osteoarthritis of knee M17.0 Active 830297884 Problem Polyneuropathy associated with underlying disease G63 Active 541645442 Problem Anemia of chronic illness D63.8 Acti ve 335820626 Problem Lymphocytosis D72.820 Active 989022 09 Problem Retinal edema H35.81 Active 674964 6 Problem Chronic lymphocytic leukemia C91.10 A ctive 23761819 Problem Bipolar disorder, in partial remission, most rec ent episode depressed F31.75 Active 81305748 Problem Pure hypercholesterolemia E78.00 Acti ve 273216205 Problem Primary osteoarthritis of right knee M17.11 Active 190454296780572 Problem Bipolar disorder F31.9 Active 137 03306 Problem Bipolar I disorder, most recent episode (or curr ent) mixed, moderate F31.62 Active 98048574 Problem Chronic diastolic (congestive) heart failure I50.3 2 Active 761709422 Problem Reactive airway disease J45.909 Active 134446036214 Problem Insomnia, unspecified type G47.00 Act sharon 809056930 Problem Other chronic pain G89.29 Active 8 5783139 Problem Other iron deficiency anemia D50.8 A ctive 17505562 Problem Mild cognitive impairment G31.84 Acti ve 404003275 Problem Skin cancer C44.90 Active 02899872 7 ALLERGIES No Information ENCOUNTERS Encounter Location Date Diagnosis [place] [address] [address] [place] [id number] Jun, [place] [address] [address] Jun, [place] [address] [address] May, [place] [address] [address] Apr, Chronic pain G89.29 and Bipo lar disorder F31.9 [place] [address] [place] [id number] [address] [place] [id number] Mar, Bipolar disorder F31.9 and C hronic pain G89.29 [place] [address] [address] [place] [id number] [address] [place] [address] Feb, Bipolar disorder F31.9 [place] [address] [address] [facility] [id number] [address] [place] [id number] Feb, Cellulitis of right upper ex tremity L03.113 and Skin abrasion T14.8XXA [place] [address] [address] [facility] [id number] [address] [place] [id number] Feb, Bipolar disorder, in partial remission, most recent episode depressed F31.75 and Mild cognitive impairment G31.84 [place] [address] [id number] [address] [place] [id number] 13 Feb, 2019 Chronic pain G89.29 [facility] [address] [id number] [address] [place] [id number] Feb, Bipolar disorder, in partial remission, most recent episode depressed F31.75 and Mild cognitive impairment G31.84 [facility] [address] [id number] [address] [place] [id number] January, Bipolar disorder, in partial remission, most recent episode depressed F31.75 and Mild cognitive impairment G31.84 [facility] [address] [id number] [address] [place] [id number] January, Chronic pain G89.29 and Bipo lar disorder F31.9 [facility] [address] [id number] [address] [place] [id number] January, Bipolar disorder, in partial remission, most recent episode depressed F31.75 and Mild cognitive impairment G31.84 [facility] [address] [id number] [address] [place] [id number] Dec, [facility] [address] [id number] [address] [place] [id number] Dec, Chronic pain G89.29 and Bipo lar disorder F31.9 [facility] [address] [id number] [address] [place] [id number] Dec, Edema of both lower extremit ies R60.0 [facility] [address] [id number] [address] [place] [id number] Dec, Bipolar disorder F31.9 [facility] [address] [id number] [address] [place] [id number] Dec, Bipolar disorder, in partial remission, most recent episode depressed F31.75 and Mild cognitive impairment G31.84 [facility] [address] [id number] [address] [place] [id number] Nov, [facility] [address] [place] [id number] [address] [place] [id number] Nov, Chronic pain G89.[address] [address] Nov, Bipolar disorder, in partial remission, most recent episode depressed F31.75 and Mild cognitive impairment G31.84 [place] [id number] [address] [place] [address] Nov, Bipolar disorder F31.[address] [address] Nov, Encounter for Medicare annua wellness exam Z00.00 [...] unspecified morphology N40.1 and Essential hypertension I10 [address] [address] Oct, Chronic pain G89.29 [place] [address] [place] [id number] [address] [place] [address] Oct, Diabetes E11.9 [place] [address] [place] [id number] [address] [place] [id number] Oct, Bipolar I disorder, most rec ent episode (or current) mixed, moderate F31.62 and Mild cognitive impairment G31.84 [place] [id number] [address] [place] [id number] Oct, Bipolar I disorder, most rec ent episode (or current) mixed, moderate F31.62 and Mild cognitive impairment G31.84 [place] [address] [place] [id number] [address] [place] [address] Sep, Bipolar I disorder, most rec ent episode (or current) mixed, moderate F31.62 and Mild cognitive impairment G31.84 [facility] [address] [id number] [address] [place] [address] Sep, [place] [address] [facility] [id number] [address] [place] [address] Sep, Diabetes E11.9 ; Hypoxia R09 .02 ; Hyperglycemia R73.9 ; Therapeutic drug monitoring Z51.81 ; BMI 50.0-59.9, adult Z68.43 and Skin cancer C44.90 [place] [address] [address] [facility] [id number] [address] [place] [address] Sep, Chronic pain G89.29 [place] [address] [address] [facility] [id number] [address] [place] [id number] Sep, Bipolar I disorder, most rec ent episode (or current) mixed, moderate F31.62 [place] [address] [address] [facility] [id number] [address] [place] [id number] Sep, [place] [address] [address] [facility] [id number] [address] [place] [phone] Sep, [facility] [address] [facility] [id number] [address] [place] [id number] Aug, Chronic pain G89.29 [place] [address] [address] [facility] [id number] [address] [place] [id number] Aug, Bipolar I disorder, most rec ent episode (or current) mixed, moderate F31.62 [place] [address] [id number] [address] [place] [address] Aug, Bipolar I disorder, most rec ent episode (or current) mixed, moderate F31.62 and Mild cognitive impairment G31.84 [place] [address] [address] [facility] [id number] [address] [place] [id number] Jul, [place] [address] [address] [facility] [id number] [address] [place] [address] Jul, Chronic pain G89.29 [facility] [address] [id number] [address] [place] [id number] Jul, Bipolar I disorder, most rec ent episode (or current) mixed, moderate F31.62 and Mild cognitive impairment G31.84 [facility] [address] [id number] [address] [place] [id number] Jul, Bipolar I disorder, most rec ent episode (or current) mixed, moderate F31.62 and MCI (mild cognitive impairment) G31.84 [facility] [address] [id number] [address] [place] [id number] Jul, [facility] [address] [id number] [address] [place] [phone] Jul, [facility] [address] [id number] [address] [place] [id number] Jul, Bipolar I disorder, most rec ent episode (or current) mixed, moderate F31.62 [facility] [address] [id number] [address] [place] [id number] Jul, Chronic pain G89.29 [facility] [address] [id number] [address] [place] [id number] Jun, Bipolar I disorder, most rec ent episode (or current) mixed, moderate F31.62 [facility] [address] [id number] [address] [place] [id number] Jun, Pre-procedure lab exam Z01.8 12 [facility] [address] [id number] [address] [place] [phone] Jun, [facility] [address] [id number] [place] [id number] Jun, [facility] [address] [id number] [address] [place] [id number] Jun, [facility] [address] [id number] [address] [place] [id number] Jun, Forgetfulness R68.89 ; Pre-s yncope R55 ; Localized edema R60.0 ; Other iron deficiency anemia D50.8 and BMI 50.0-59.9, adult Z68.43 [place] [id number] [place] [address] Jun, Chronic pain G89.29 [place] [address] [address] Jun, Chronic pain G89.29 [place] [address] [address] Jun, Bipolar I disorder, most rec ent episode (or current) mixed, moderate F31.62 [place] [address] [place] [id number] [place] [address] May, Chronic pain G89.29 [place] [address] [address] Apr, [place] [address] [address] Apr, Chronic pain G89.29 [place] [address] [place] [id number] [place] [address] Apr, Primary osteoarthritis of ri ght knee M17.11 [place] [address] [address] Mar, [place] [address] [address] Mar, BMI 50.0-59.9, adult Z68.43 and Bipolar disorder, in partial remission, most recent episode depressed F31.75 [place] [address] [place] [id number] [address] [place] [id number] Mar, Diabetes E11.9 ; Pure hyperc holesterolemia E78.00 ; Essential hypertension I10 ; Nausea with vomiting, unspecified R11.2 and Headache, unspecified headache type R51 [facility] [address] [facility] [id number] [address] [place] [id number] Mar, Bipolar I disorder, most rec ent episode (or current) mixed, moderate F31.62 [facility] [address] [facility] [id number] [address] [place] [id number] Mar, Bipolar I disorder, most rec ent episode (or current) mixed, moderate F31.62 [place] [address] [address] [facility] [id number] [address] [place] [address] Mar, Chronic pain G89.29 [place] [address] [address] [facility] [id number] [address] [place] [id number] Mar, Bipolar I disorder, most rec ent episode (or current) mixed, moderate F31.62 [place] [address] [facility] [id number] [address] [place] [id number] Feb, Bipolar I disorder, most rec ent episode (or current) mixed, moderate F31.62 [facility] [address] [facility] [id number] [address] [place] [id number] Feb, Chronic pain G89.29 [facility] [address] [facility] [id number] [address] [place] [id number] Feb, Decubitus ulcer of right josselin t, stage 3 L89.893 and BMI 50.0-59.9, adult Z68.43 [place] [address] [address] [facility] [id number] [address] [place] [id number] Feb, Bipolar I disorder, most rec ent episode (or current) mixed, moderate F31.62 [place] [address] [facility] [id number] [address] [place] [id number] Feb, [facility] [address] [facility] [id number] [address] [place] [id number] January, [facility] [address] [facility] [id number] [address] [place] [address] January, Chronic pain G89.29 [place] [address] [facility] [id number] [address] [place] [id number] January, Bipolar I disorder, most rec ent episode (or current) mixed, moderate F31.62 [place] [address] [facility] [id number] [address] [place] [id number] January, Bipolar I disorder, most rec ent episode (or current) mixed, moderate F31.62 [place] [address] [facility] [id number] [address] [place] [id number] Dec, Bipolar I disorder, most rec ent episode (or current) mixed, moderate F31.62 and BMI 50.0-59.9, adult Z68.43 [place] [address] [place] [id number] [place] [address] Dec, Bipolar I disorder, most rec ent episode (or current) mixed, moderate F31.62 [place] [address] [place] [id number] [address] [place] [address] Dec, Chronic pain G89.29 [place] [address] [place] [id number] [address] [place] [id number] Dec, DM neuro manif type II E11.4 9 ; Right flank pain R10.9 ; [facility] 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 Z79.891 ; Encounter for medication monitoring Z51.81 and BMI 50.0-59.9, adult Z68.43 [place] [address] [place] [id number] [address] [place] [id number] Dec, Bipolar I disorder, most rec ent episode (or current) mixed, moderate F31.62 [place] [address] [place] [id number] [address] [place] [address] Nov, Bipolar I disorder, most rec ent episode (or current) mixed, moderate F31.62 [place] [address] [facility] [id number] [address] [place] [address] Nov, Chronic pain G89.29 [place] [address] [place] [id number] [address] [place] [address] Nov, Bipolar I disorder, most rec ent episode (or current) mixed, moderate F31.62 [place] [address] [address] Nov, Hypokalemia E87.6 [place] [address] [place] [id number] [place] [address] Nov, Bipolar I disorder, most rec ent episode (or current) mixed, moderate F31.62 [place] [address] [place] [id number] [place] [address] Oct, Chronic pain G89.29 [place] [address] [address] Oct, BMI 50.0-59.9, adult Z68.43 and Bipolar I disorder, most recent episode (or current) mixed, moderate F31.62 [place] [address] [address] Oct, Bipolar I disorder, most rec ent episode (or current) mixed, moderate F31.62 [place] [address] [address] Oct, [place] [address] [address] Oct, Hypokalemia E87.6 [place] [address] [address] Oct, DM neuro manif type II E11.4 9 [place] [address] [place] [id number] [place] [address] Oct, Bipolar I disorder, most rec ent episode (or current) mixed, moderate F31.62 [place] [address] [place] [id number] [place] [address] Oct, Bipolar I disorder, most rec ent episode (or current) mixed, moderate F31.62 [place] [address] [address] 14 Oct, 2017 Hyperkalemia E87.5 ; Falling R29.6 ; BMI 50.0-59.9, adult Z68.43 and Acute left ankle pain M25.572 [place] [address] [address] 08 Oct, 2017 DM neuro manif type II E11.4 9 [place] [address] [address] Oct, [place] [address] [address] Sep, Chronic pain G89.29 [place] [address] [address] Sep, [place] [address] [address] Sep, Bilateral primary osteoarthr itis of knee M17.0 [place] [address] [address] Sep, Generalized edema R60.1 [place] [address] [address] 16 Sep, 2017 Bipolar I disorder, most rec ent episode (or current) mixed, moderate F31.62 [place] [address] [address] 15 Sep, 2017 Hypoxia R09.02 ; Other hyper volemia E87.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 ; Anemia of chronic illness D63.8 and BMI 50.0- 59.9, adult Z68.43 [place] [address] [address] Sep, [place] [address] [place] [address] [place] [address] Sep, Bipolar I disorder, most rec ent episode (or current) mixed, moderate F31.62 [facility] [address] [facility] [id number] [address] [place] [address] 28 Aug, 2017 Chronic pain G89.29 [facility] [address] [facility] [id number] [address] [place] [id number] Aug, Generalized edema R60.1 [facility] [address] [facility] [id number] [address] [place] [phone] Aug, [facility] [address] [facility] [id number] [address] [place] [phone] Aug, [facility] [address] [facility] [id number] [address] [place] [id number] 14 Aug, 2017 Bipolar I disorder, most rec ent episode (or current) mixed, moderate F31.62 [place] [address] [facility] [id number] [address] [place] [phone] 07 Aug, 2017 Bipolar I disorder, most rec ent episode (or current) mixed, moderate F31.62 [place] [address] [facility] [id number] [address] [place] [address] 04 Aug, 2017 Chronic pain G89.29 [facility] [address] [facility] [id number] [address] [place] [address] 30 Jul, 2017 Bipolar I disorder, most rec ent episode (or current) mixed, moderate F31.62 [facility] [address] [id number] [address] [place] [address] Jul, Bipolar I disorder, most rec ent episode (or current) mixed, moderate F31.62 and BMI 60.0-69.9, adult Z68.44 [facility] [address] [facility] [id number] [address] [place] [address] 16 Jul, 2017 Bipolar I disorder, most rec ent episode (or current) mixed, moderate F31.62 [place] [address] [facility] [id number] [address] [place] [address] Jul, Chronic pain G89.29 [facility] [address] [facility] [id number] [address] [place] [address] Jul, Bipolar I disorder, most rec ent episode (or current) mixed, moderate F31.62 [facility] [address] [facility] [id number] [address] [place] [id number] Jun, Polyneuropathy associated wi th underlying disease G63 and Diabetes E11.9 [facility] [address] [facility] [id number] [address] [place] [id number] 16 Jun, 2017 Bipolar I disorder, most rec ent episode (or current) mixed, moderate F31.62 [facility] [address] [facility] [id number] [address] [place] [address] Jun, Chronic pain G89.29 [facility] [address] [place] [id number] [address] [place] [address] May, Bipolar I disorder, most rec ent episode (or current) mixed, moderate F31.62 [facility] [address] [facility] [id number] [address] [place] [address] May, Bipolar I disorder, most rec ent episode (or current) mixed, moderate F31.62 [facility] [address] [facility] [id number] [address] [place] [id number] 20 May, 2017 Diabetic polyneuropathy asso ciated with type 2 diabetes mellitus E11.42 [facility] [address] [facility] [id number] [address] [place] [id number] 18 May, 2017 Bipolar I disorder, most rec ent episode (or current) mixed, moderate F31.62 [facility] [address] [facility] [id number] [address] [place] [id number] 13 May, 2017 Bipolar I disorder, most rec ent episode (or current) mixed, moderate F31.62 [facility] [address] [place] [id number] [address] [place] [id number] May, Chronic pain G89.29 [facility] [address] [id number] [address] [place] [id number] Apr, Bipolar I disorder, most rec ent episode (or current) mixed, moderate F31.62 [facility] [address] [id number] [address] [place] [id number] Apr, [facility] [address] [id number] [address] [place] [id number] Apr, Chronic pain G89.29 and DM n euro manif type II E11.49 [facility] [address] [id number] [address] [place] [id number] Apr, [facility] [address] [id number] [address] [place] [id number] Apr, Bipolar I disorder, most rec ent episode (or current) mixed, moderate F31.62 [facility] [address] [facility] [id number] [address] [place] [id number] Apr, Chronic pain G89.29 [facility] [address] [id number] [address] [place] [id number] Apr, Iliotibial band syndrome, le ft M76.32 [facility] [address] [facility] [id number] [address] [place] [id number] Apr, Bipolar I disorder, most rec ent episode (or current) mixed, moderate F31.62 [facility] [address] [id number] [address] [place] [id number] Mar, Bipolar I disorder, most rec ent episode (or current) mixed, moderate F31.62 [facility] [address] [facility] [id number] [address] [place] [id number] Mar, Bipolar I disorder, most rec ent episode (or current) mixed, moderate F31.62 [facility] [address] [facility] [id number] [address] [place] [id number] Mar, [facility] [address] [id number] [address] [place] [id number] Mar, Bipolar I disorder, most rec ent episode (or current) mixed, moderate F31.62 [facility] [address] [facility] [id number] [address] [place] [phone] Mar, Chronic pain G89.29 [facility] [address] [facility] [id number] [address] [place] [id number] Mar, Bipolar I disorder, most rec ent episode (or current) mixed, moderate F31.62 [facility] [address] [facility] [id number] [address] [place] [phone] Mar, Bipolar I disorder, most rec ent episode (or current) mixed, moderate F31.62 [facility] [address] [facility] [id number] [address] [place] [id number] Mar, Acute pain of left knee M25. 562 ; Left hip pain M25.552 ; Generalized edema R60.1 and Tongue swelling R22.0 [facility] [address] [facility] [id number] [address] [place] [phone] Mar, [facility] [address] [facility] [id number] [address] [place] [phone] Feb, Chronic pain G89.29 [facility] [address] [facility] [id number] [address] [place] [phone] Feb, Diabetes E11.9 [facility] [address] [facility] [id number] [address] [place] [phone] January, Chronic pain G89.29 [facility] [address] [facility] [id number] [address] [place] [phone] January, [facility] [address] [facility] [id number] [address] [place] [phone] January, Bipolar I disorder, most rec ent episode (or current) mixed, moderate F31.62 [facility] [address] [facility] [id number] [address] [place] [id number] Dec, Bipolar I disorder, most rec ent episode (or current) mixed, moderate F31.62 [facility] [address] [id number] [address] [place] [id number] Dec, Chronic pain G89.29 [facility] [address] [facility] [id number] [address] [place] [id number] Dec, Bipolar I disorder, most rec ent episode (or current) mixed, moderate F31.62 [facility] [address] [facility] [id number] [address] [place] [id number] Dec, Diabetes E11.9 ; Essential h ypertension I10 ; Chronic pain G89.29 and Morbid obesity E66.01 [facility] [address] [id number] [address] [place] [phone] Dec, [facility] [address] [facility] [id number] [address] [place] [phone] Dec, Bipolar I disorder, most rec ent episode (or current) mixed, moderate F31.62 [facility] [address] [id number] [address] [place] [id number] Dec, Bipolar I disorder, most rec ent episode (or current) mixed, moderate F31.62 [facility] [address] [facility] [id number] [address] [place] [id number] Nov, Chronic pain G89.29 [facility] [address] [facility] [id number] [address] [place] [id number] Nov, Bipolar I disorder, most rec ent episode (or current) mixed, moderate F31.62 [facility] [address] [id number] [address] [place] [phone] Nov, [facility] [address] [id number] [address] [place] [phone] Nov, Bipolar I disorder, most rec ent episode (or current) mixed, moderate F31.62 [facility] [address] [facility] [id number] [address] [place] [id number] Nov, Bipolar I disorder, most rec ent episode (or current) mixed, moderate F31.62 [facility] [address] [facility] [id number] [address] [place] [phone] Nov, [facility] [address] [facility] [id number] [address] [place] [id number] Nov, [facility] [address] [facility] [id number] [address] [place] [phone] Nov, [facility] [address] [facility] [id number] [address] [place] [id number] Oct, Chronic pain G89.29 [facility] [address] [facility] [id number] [address] [place] [phone] Oct, Bipolar I disorder, most rec ent episode (or current) mixed, moderate F31.62 [facility] [place] [address] [place] [id number] [address] [place] [id number] Oct, [facility] [address] [facility] [id number] [address] [place] [id number] Oct, Chronic pain G89.29 ; Diabet es E11.9 ; Anxiety F41.9 and 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 [facility] [address] [facility] [id number] [address] [place] [phone] Oct, [facility] [address] [facility] [id number] [address] [place] [phone] Oct, Diabetes E11.9 [facility] [address] [facility] [id number] [address] [place] [id number] Oct, Bipolar I disorder, most rec ent episode (or current) mixed, moderate F31.62 [facility] [address] [facility] [id number] [address] [place] [id number] Sep, Chronic pain G89.29 [facility] [address] [facility] [id number] [address] [place] [id number] Sep, Chronic pain G89.29 [facility] [address] [id number] [address] [place] [id number] Aug, Chronic pain G89.29 [facility] [address] [id number] [address] [place] [id number] Jul, [facility] [address] [facility] [id number] [address] [place] [phone] Jul, Diabetes E11.9 [facility] [address] [id number] [address] [place] [id number] Jul, Chronic pain G89.29 [facility] [address] [id number] [address] [place] [id number] Jul, Bipolar I disorder, most rec ent episode (or current) mixed, moderate F31.62 [facility] [address] [facility] [id number] [address] [place] [id number] Jun, Bipolar I disorder, most rec ent episode (or current) mixed, moderate F31.62 [facility] [address] [facility] [id number] [address] [place] [id number] Jun, [facility] [address] [facility] [id number] [address] [place] [id number] Jun, Bipolar I disorder, most rec ent episode (or current) mixed, moderate F31.62 [facility] [address] [facility] [id number] [address] [place] [id number] 30 May, 2016 Insomnia, unspecified type G 47.00 [facility] [address] [id number] [address] [place] [phone] May, Bipolar I disorder, most rec ent episode (or current) mixed, moderate F31.62 [facility] [address] [facility] [id number] [address] [place] [id number] 14 May, 2016 [facility] [address] [facility] [id number] [address] [place] [id number] May, Bipolar I disorder, most rec ent episode (or current) mixed, moderate F31.62 [facility] [address] [facility] [id number] [address] [place] [phone] May, Diabetes E11.9 and Essential hypertension I10 [facility] [address] [facility] [id number] [address] [place] [id number] Apr, Chronic pain G89.29 [facility] [address] [facility] [id number] [address] [place] [phone] Apr, Bipolar I disorder, most rec ent episode (or current) mixed, moderate F31.62 [place] [address] [facility] [id number] [address] [place] [phone] Apr, [place] [address] [place] [id number] [address] [place] [id number] Apr, [place] [place] [address] [place] [id number] [address] [place] [id number] Mar, Chronic pain G89.29 ; Headac he, unspecified headache type R51 ; Neuropathy G62.9 ; Pain of right hip joint M25.551 and Essential hypertension I10 [place] [address] [facility] [id number] [address] [place] [phone] Mar, Chronic pain G89.29 [place] [place] [address] [facility] [id number] [address] [place] [id number] Mar, Bipolar I disorder, most rec ent episode (or current) mixed, moderate F31.62 [place] [address] [place] [id number] [address] [place] [id number] Feb, Bipolar I disorder, most rec ent episode (or current) mixed, moderate F31.62 and Insomnia, unspecified type G47.00 [place] [address] [facility] [id number] [address] [place] [phone] Feb, Chronic pain G89.29 [facility] [address] [facility] [id number] [address] [place] [phone] Feb, Bipolar I disorder, most rec ent episode (or current) mixed, moderate F31.62 [facility] [address] [id number] [address] [place] [id number] January, Bipolar I disorder, most rec ent episode (or current) mixed, moderate F31.62 [facility] [address] [id number] [address] [place] [phone] January, Chronic pain G89.29 [facility] [address] [id number] [address] [place] [id number] January, Chronic pain G89.29 and Esse ntial hypertension I10 [facility] [address] [id number] [address] [place] [id number] January, Bipolar I disorder, most rec ent episode (or current) mixed, moderate F31.62 [facility] [address] [id number] [address] [place] [id number] Dec, [facility] [address] [id number] [address] [place] [id number] Dec, [facility] [address] [id number] [address] [place] [id number] Dec, [facility] [address] [id number] [address] [place] [id number] Dec, [facility] [address] [id number] [address] [place] [phone] Nov, Reactive airway disease J45. 909 [facility] [address] [id number] [address] [place] [id number] Nov, [facility] [address] [id number] [address] [place] [phone] Nov, [facility] [address] [id number] [address] [place] [phone] Nov, [facility] [address] [id number] [address] [place] [phone] Nov, [place] [address] [address] Nov, Onychomycosis B35.1 ; Hammer toe M20.40 ; [place] or callus L84 and DM neuro manif type II E11.49 [place] [address] [id number] Nov, Chronic pain G89.29 ; Leukoc ytosis D72.829 and Diabetes E11.9 [place] [address] [address] Nov, [place] [address] [id number] Oct, Bronchitis J40 [place] [address] [id number] Oct, [address] [address] Oct, [place] [address] [address] Oct, Mastoiditis, unspecified lat erality H70.90 and Type 2 diabetes mellitus with complication E11.[address] [address] Sep, [address] [address] Sep, Dysuria R30.0 ; Cough R05 ; Benign prostatic hyperplasia with lower urinary tract symptoms, unspecified morphology N40.1 ; Hypokalemia E87.6 and Eustachian tube dysfunction, unspecified laterality H69.[address] [address] Sep, Moderate mixed bipolar I dis order F31.[address] [address] Sep, Hypokalemia E87.6 [facility] [address] [id number] [address] [place] [phone] Sep, [facility] [address] [facility] [id number] [address] [place] [id number] Sep, Upper respiratory tract infe ction, unspecified type J06.9 [facility] [address] [facility] [id number] [address] [place] [phone] Aug, [facility] [address] [facility] [id number] [address] [place] [id number] Aug, Dysuria R30.0 [facility] [address] [facility] [id number] [address] [place] [phone] Aug, [facility] [address] [facility] [id number] [address] [place] [phone] Jul, [facility] [address] [facility] [id number] [address] [place] [id number] Jul, [facility] [address] [facility] [id number] [address] [place] [id number] Jul, [facility] [address] [facility] [id number] [address] [place] [phone] Jul, [facility] [address] [facility] [id number] [address] [place] [phone] Jun, [facility] [address] [facility] [id number] [address] [place] [phone] Jun, [facility] [address] [facility] [id number] [address] [place] [id number] Jun, [facility] [address] [facility] [id number] [address] [place] [id number] May, [facility] [address] [facility] [id number] [address] [place] [id number] May, Bipolar I disorder, most rec ent episode (or current) mixed, moderate 296.62 [facility] [address] [facility] [id number] [address] [place] [phone] May, [facility] [address] [id number] [address] [place] [id number] May, Bipolar I disorder, most rec ent episode (or current) mixed, moderate 296.62 and Major depressive disorder, recurrent episode, severe, specified as with psychotic behavior 296.34 [facility] [address] [facility] [id number] [address] [place] [phone] May, Bipolar I disorder, most rec ent episode (or current) mixed, moderate 296.62 [facility] [address] [id number] [address] [place] [id number] May, [facility] [address] [facility] [id number] [address] [place] [phone] Apr, [facility] [address] [facility] [id number] [address] [place] [phone] Apr, [facility] [address] [place] [id number] [address] [place] [id number] Apr, Unspecified disorder of kidn ey and ureter 593.9 and Diabetes mellitus type 2, uncontrolled 250.02 [facility] [address] [facility] [id number] [address] [place] [id number] Apr, [facility] [address] [facility] [id number] [address] [place] [id number] Apr, [facility] [address] [facility] [id number] [address] [place] [id number] Apr, [facility] [address] [facility] [id number] [address] [place] [id number] Apr, [facility] [address] [facility] [id number] [address] [place] [id number] Apr, Diabetes mellitus type II, u ncontrolled 250.02 [facility] [address] [facility] [id number] [address] [place] [phone] Apr, [facility] [address] [facility] [id number] [address] [place] [phone] Mar, [facility] [address] [facility] [id number] [address] [place] [id number] Mar, [facility] [address] [facility] [id number] [address] [place] [phone] Mar, [facility] [address] [place] [id number] [address] [place] [phone] Mar, Major depressive disorder, r ecurrent episode, severe, specified as with psychotic behavior 296.34 and Bipolar I disorder, most recent episode (or current) mixed, moderate 296.62 [facility] [address] [place] [id number] [address] [place] [phone] Mar, Diabetes 250.00 ; Anuria 788 .5 ; Nausea and vomiting 787.01 and Diarrhea 787.91 [facility] [address] [place] [id number] [address] [place] [id number] Mar, Diabetes 250.00 [facility] [address] [facility] [id number] [address] [place] [phone] Mar, [facility] [address] [facility] [id number] [address] [place] [id number] Mar, Diabetes 250.00 [facility] [address] [place] [id number] [address] [place] [phone] Mar, [facility] [address] [facility] [id number] [address] [place] [phone] Mar, [facility] [address] [facility] [id number] [address] [place] [phone] Mar, [facility] [address] [facility] [id number] [address] [place] [id number] Mar, [facility] [address] [facility] [id number] [address] [place] [id number] Mar, Bipolar I disorder, most rec ent episode (or current) mixed, moderate 296.62 and Major depressive disorder, recurrent episode, severe, specified as with psychotic behavior 296.[address] [address] Mar, Magnesium deficiency 275.2 ; Hypokalemia 276.8 ; Nausea & vomiting 787.01 and Diabetes mellitus type 2, uncontrolled 250.[address] [address] Feb, [address] [address] Feb, Bipolar I disorder, most rec ent episode (or current) mixed, moderate 296.[address] [address] Feb, Nausea and vomiting 787.01 ; Left elbow pain 719.42 ; Anuria 788.5 and Diabetes 250.[address] [address] Feb, [address] [address] Feb, Hypopotassemia 276.8 and Hyp okalemia 276.[address] [address] Feb, Hypopotassemia 276.8 and Hyp okalemia 276.[address] [address] Feb, Seborrheic keratoses 702.[address] [address] Feb, Hypopotassemia 276.8 and Low magnesium levels 275.[address] [address] January, [address] [address] January, [facility] [address] [id number] [address] [place] [id number] January, [facility] [address] [id number] [address] [place] [id number] January, Scalp lesion 709.9 [facility] [address] [id number] [address] [place] [id number] January, [facility] [address] [id number] [address] [place] [address] Dec, Tear of medial cartilage or meniscus of knee, current 836.0 and 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 [facility] [address] [id number] [address] [place] [id number] Dec, [facility] [address] [id number] [address] [place] [id number] Dec, [facility] [address] [id number] [address] [place] [id number] Dec, Squamous cell carcinoma, 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 [facility] [address] [id number] [address] [place] [id number] Dec, [facility] [address] [id number] [address] [place] [id number] Dec, [facility] [address] [id number] [address] [place] [phone] Nov, [facility] [address] [id number] [address] [place] [id number] Nov, [facility] [address] [id number] [address] [place] [phone] Nov, [facility] [address] [id number] [address] [place] [id number] Nov, [facility] [address] [id number] [address] [place] [id number] Nov, [facility] [address] [id number] [address] [place] [id number] Nov, 2014 [facility] [address] [id number] [address] [place] [address], [place] [address] Nov, 2014 [facility] [address] [id number] [address] [place] [address], [place] [address] Nov, 2014 [facility] [address] [id number] [address] [place] [address], [place] [address] Nov, 2014 [facility] [address] [id number] [address] [place] [address], [place] [address] Nov, 2014 [facility] [address] [id number] [address] [place] [address], [place] [address] Nov, [facility] [address] [id number] [address] [place] [address], [place] [address] Nov, 2014 [facility] [address] [id number] [address] [place] [id number] Oct, 2014 [facility] [address] [id number] [address] [place] [id number] Oct, 2014 [facility] [address] [id number] [address] [place] [address], [place] [address] Oct, 2014 [facility] [address] [id number] [address] [place] [phone] Oct, 2014 [facility] [address] [id number] [address] [place] [address], [place] [address] Oct, 2014 [facility] [address] [id number] [address] [place] [id number] Oct, 2014 [facility] [address] [id number] [address] [place] [address], [place] [address] Oct, 2014 [facility] [address] [id number] [address] [place] [id number] Oct, 2014 [facility] [address] [id number] [address] [place] [phone] Oct, [facility] [address] [id number] [address] [place] [address], [place] [address] Sep, [facility] [address] [id number] [address] [place] [address], [place] [address] Sep, [facility] [address] [id number] [address] [place] [address], [place] [address] Sep, [facility] [address] [id number] [address] [place] [address], [place] [address] Sep, [facility] [address] [id number] [address] [place] [address], [place] [address] Sep, [facility] [address] [id number] [place] [address], [place] [address] Sep, [facility] [address] [id number] [address] [place] [address], [place] [address] Sep, [facility] [address] [id number] [address] [place] [address], [place] [address] Sep, [facility] [address] [id number] [address] [place] [address], [place] [address] Sep, [facility] [address] [id number] [address] [place] [address], [place] [address] Sep, [facility] [address] [id number] [address] [place] [address], [place] [address] Sep, [facility] [address] [id number] [address] [place] [address], [place] [address] Sep, [facility] [address] [id number] [address] [place] [address], [place] [address] Sep, [facility] [address] [id number] [address] [place] [address], [place] [address] Sep, [facility] [address] [id number] [address] [place] [address], [place] [address] Sep, [facility] [address] [id number] [address] [place] [address] [place] [address] Sep, [facility] [address] [id number] [facility] [place] [address] Aug, [facility] [address] [id number] [address] [place] [address], [place] [address] Aug, [facility] [address] [id number] [address] [place] [address], [place] [address] Aug, [facility] [address] [id number] [address] [place] [address], [place] [address] Aug, [facility] [address] [id number] [address] [place] [address], [place] [address] Aug, [facility] [address] [id number] [address] [place] [address], [place] [address] Aug, [facility] [address] [id number] [address] [place] [address], [place] [address] Aug, [facility] [address] [id number] [address] [place] [address], [place] [address] Aug, [facility] [address] [id number] [address] [place] [address], [place] [address] Aug, [facility] [address] [id number] [address] [place] [address], [place] [address] Aug, [facility] [address] [id number] [address] [place] [address], [place] [address] Aug, [facility] [address] [place] [id number] Aug, [facility] [address] [id number] [address] [place] [address], [place] [address] Aug, [facility] [address] [id number] [address] [place] [address], [place] [address] Aug, [facility] [address] [id number] [address] [place] [address], [place] [address] Aug, [facility] [address] [id number] [address] [place] [address], [place] [address] 10 Aug, 2014 [facility] [address] [id number] [address] [place] [address], [place] [address] Aug, [facility] [address] [id number] [address] [place] [address], [place] [address] Aug, [facility] [address] [id number] [address] [place] [address], [place] [address] Aug, [facility] [address] [id number] [address] [place] [address], [place] [address] Aug, [facility] [address] [id number] [address] [place] [address], [place] [address] Aug, [facility] [address] [id number] [address] [place] [address], [place] [address] Aug, [facility] [address] [id number] [address] [place] [address], [place] [address] Aug, [facility] [address] [id number] [address] [place] [address], [place] [address] Aug, [facility] [address] [id number] [address] [place] [address], [place] [address] Aug, [facility] [address] [id number] [address] [place] [address], [place] [address] Aug, [facility] [address] [id number] [address] [place] [address], [place] [address] Aug, [facility] [address] [id number] [address] [place] [address], [place] [address] Aug, [facility] [address] [id number] [address] [place] [address], [place] [address] Aug, [facility] [address] [id number] [address] [place] [address], [place] [address] Aug, [facility] [address] [id number] [address] [place] [address], [place] [address] Jul, [facility] [address] [id number] [address] [place] [address], [place] [address] Jul, [facility] [address] [id number] [address] [place] [address], [place] [address] Jul, [facility] [address] [id number] [address] [place] [address], [place] [address] Jul, [facility] [address] [id number] [address] [place] [address], [place] [address] Jul, [facility] [address] [id number] [address] [place] [address], [place] [address] Jul, [facility] [address] [id number] [address] [place] [address], [place] [address] Jul, [facility] [address] [id number] [address] [place] [address], [place] [address] Jul, [facility] [address] [id number] [address] [place] [address], [place] [address] Jul, [facility] [address] [id number] [address] [place] [address], [place] [address] Jul, [facility] [address] [id number] [address] [place] [address] Jun, [facility] [address] [id number] [address] [place] [address] Jun, [facility] [address] [id number] [address] [place] [address] 16 Jun, 2014 [facility] [address] [id number] [address] [place] [address], [place] [address] 16 Jun, 2014 [facility] [address] [id number] [address] [place] [address], [place] [address] 15 Jun, 2014 [facility] [address] [id number] [address] [place] [address] 15 Jun, 2014 [facility] [address] [id number] [address] [place] [address] 05 Jun, 2014 [facility] [address] [id number] [address] [place] [address], [place] [address] Jun, [facility] [address] [id number] [address] [place] [address], [place] [address] Jun, [facility] [address] [id number] [address] [place] [address], [place] [address] Jun, [facility] [address] [id number] [address] [place] [address], [place] [address] 29 May, 2013 [facility] [address] [id number] [address] [place] [address], [place] [address] 29 Sep, 2013 [facility] [address] [id number] [address] [place] [address], [place] [address] 26 May, 2013 [facility] [address] [id number] [address] [place] [address], [place] [address] 26 May, 2013 [facility] [address] [id number] [address] [place] [address], [place] [address] 17 May, 2013 [facility] [address] [id number] [address] [place] [address], [place] [address] 17 May, 2013 [facility] [address] [id number] [address] [place] [address], [place] [address] 15 May, 2013 [facility] [address] [id number] [address] [place] [address], [place] [address] 15 Sep, 2013 [facility] [address] [id number] [address] [place] [address], [place] [address] 15 Sep, 2013 [facility] [address] [id number] [address] [place] [address], [place] [address] 15 May, 2013 [facility] [address] [id number] [address] [place] [address], [place] [address] 10 May, 2013 [facility] [address] [id number] [address] [place] [address], [place] [address] 10 May, 2013 [facility] [address] [id number] [facility] [place] [address] May, 2013 [facility] [address] [id number] [facility] [place] [address] May, 2013 [facility] [address] [id number] [facility] [place] [address] May, [facility] [address] [id number] [facility] [place] [address] May, [facility] [address] [id number] [facility] [place] [address] Apr, [facility] [address] [id number] [address] [place] [address], [place] [address] Apr, [facility] [address] [id number] [address] [place] [address], [place] [address] Apr, [facility] [address] [id number] [address] [place] [address], [place] [address] Apr, [facility] [address] [id number] [address] [place] [address], [place] [address] Apr, [facility] [address] [id number] [address] [place] [address], [place] [address] Apr, [facility] [address] [id number] [address] [place] [address], [place] [address] Apr, [facility] [address] [id number] [address] [place] [address], [place] [address] Apr, [facility] [address] [id number] [address] [place] [address], [place] [address] Apr, [facility] [address] [id number] [address] [place] [address], [place] [address] Apr, [facility] [address] [id number] [address] [place] [address], [place] [address] Apr, [facility] [address] [id number] [address] [place] [address], [place] [address] Apr, [facility] [address] [id number] [facility] [place] [address] Apr, [facility] [address] [id number] [address] [place] [address], [place] [address] Apr, [facility] [address] [id number] [address] [place] [address], [place] [address] Apr, [facility] [address] [id number] [address] [place] [address], [place] [address] Mar, [facility] [address] [id number] [address] [place] [address], [place] [address] Mar, [facility] [address] [id number] [address] [place] [address], [place] [address] Mar, [facility] [address] [id number] [address] [place] [address], [place] [address] Mar, [facility] [address] [id number] [address] [place] [address], [place] [address] Mar, [facility] [address] [id number] [address] [place] [address], [place] [address] Mar, [facility] [address] [id number] [address] [place] [address], [place] [address] Mar, [facility] [address] [id number] [address] [place] [address], [place] [address] Mar, [facility] [address] [id number] [address] [place] [address], [place] [address] Mar, [facility] [address] [id number] [address] [place] [address], [place] [address] Mar, [facility] [address] [id number] [address] [place] [address], [place] [address] Mar, [facility] [address] [id number] [address] [place] [address], [place] [address] Mar, [facility] [address] [id number] [facility] [place] [address] Mar, 2013 [facility] [address] [id number] [address] [place] [address], [place] [address] Mar, 2013 [facility] [address] [id number] [facility] [place] [address] Mar, 2013 [facility] [address] [id number] [address] [place] [address], [place] [address] Mar, 2013 [facility] [address] [id number] [address] [place] [address], [place] [address] Mar, 2013 [facility] [address] [id number] [address] [place] [address], [place] [address] Mar, [facility] [address] [id number] [address] [place] [address], [place] [address] Feb, [facility] [address] [id number] [address] [place] [address], [place] [address] Feb, [facility] [address] [id number] [address] [place] [address], [place] [address] Feb, [facility] [address] [id number] [address] [place] [address], [place] [address] Feb, [facility] [address] [id number] [address] [place] [address], [place] [address] Feb, [facility] [address] [id number] [address] [place] [address], [place] [address] Feb, [facility] [address] [id number] [address] [place] [address], [place] [address] Feb, [facility] [address] [id number] [address] [place] [address], [place] [address] Feb, [facility] [address] [id number] [address] [place] [address], [place] [address] Feb, [facility] [address] [id number] [address] [place] [address], [place] [address] Feb, [facility] [address] [id number] [facility] [place] [address] Feb, [facility] [address] [id number] [address] [place] [address], [place] [address] Feb, [facility] [address] [id number] [address] [place] [address], [place] [address] Feb, [facility] [address] [id number] [address] [place] [address], [place] [address] Feb, [facility] [address] [id number] [address] [place] [address], [place] [address] January, [facility] [address] [id number] [address] [place] [address], [place] [address] January, [facility] [address] [id number] [address] [place] [address], [place] [address] January, [facility] [address] [id number] [address] [place] [address], [place] [address] January, [facility] [address] [id number] [address] [place] [address], [place] [address] January, [facility] [address] [id number] [address] [place] [address], [place] [address] January, [facility] [address] [id number] [address] [place] [address], [place] [address] January, [facility] [address] [id number] [address] [place] [address], [place] [address] January, [facility] [address] [id number] [address] [place] [address], [place] [address] January, [facility] [address] [id number] [address] [place] [address], [place] [address] January, [facility] [address] [id number] [address] [place] [address], [place] [address] January, [facility] [address] [id number] [address] [place] [address], [place] [address] January, [facility] [address] [id number] [facility] [place] [address] January, [facility] [address] [id number] [address] [place] [address], [place] [address] January, [facility] [address] [id number] [address] [place] [address], [place] [address] Dec, [facility] [address] [id number] [address] [place] [address], [place] [address] Dec, [facility] [address] [id number] [address] [place] [address], [place] [address] Dec, [facility] [address] [id number] [address] [place] [address], [place] [address] Dec, [facility] [address] [id number] [address] [place] [address], [place] [address] Dec, [facility] [address] [id number] [address] [place] [address], [place] [address] Dec, [facility] [address] [id number] [address] [place] [address], [place] [address] Dec, [facility] [address] [id number] [address] [place] [address], [place] [address] Dec, [facility] [address] [id number] [address] [place] [address], [place] [address] Dec, [facility] [address] [id number] [address] [place] [address], [place] [address] Dec, [facility] [address] [id number] [address] [place] [address], [place] [address] Nov, [facility] [address] [id number] [address] [place] [address], [place] [address] Nov, [facility] [address] [id number] [address] [place] [address], [place] [address] Nov, [facility] [address] [id number] [address] [place] [address], [place] [address] 10 Nov, 2013 [facility] [address] [id number] [address] [place] [address], [place] [address] Nov, [facility] [address] [id number] [address] [place] [address], [place] [address] Nov, [facility] [address] [id number] [address] [place] [address], [place] [address] Nov, [facility] [address] [id number] [address] [place] [address], [place] [address] Nov, [facility] [address] [id number] [address] [place] [address], [place] [address] Nov, [facility] [address] [id number] [address] [place] [address], [place] [address] Nov, [facility] [address] [id number] [address] [place] [address], [place] [address] Oct, [facility] [address] [id number] [address] [place] [address], [place] [address] Oct, [facility] [address] [id number] [address] [place] [address], [place] [address] Oct, [facility] [address] [id number] [address] [place] [address], [place] [address] Oct, [facility] [address] [id number] [address] [place] [address], [place] [address] Oct, [facility] [address] [id number] [address] [place] [address], [place] [address] Oct, [facility] [address] [id number] [address] [place] [address], [place] [address] 14 Oct, 2013 [facility] [address] [id number] [address] [place] [address], [place] [address] 14 Oct, 2013 [facility] [address] [id number] [address] [place] [address], [place] [address] Oct, [facility] [address] [id number] [address] [place] [address], [place] [address] Oct, [facility] [address] [id number] [address] [place] [address], [place] [address] Oct, [facility] [address] [id number] [address] [place] [address], [place] [address] Oct, [facility] [address] [id number] [address] [place] [address], [place] [address] Oct, [facility] [address] [id number] [address] [place] [address], [place] [address] Oct, [facility] [address] [id number] [address] [place] [address], [place] [address] Sep, [facility] [address] [id number] [address] [place] [address], [place] [address] Sep, [facility] [address] [id number] [address] [place] [address], [place] [address] Sep, [facility] [address] [id number] [address] [place] [address], [place] [address] Sep, [facility] [address] [id number] [address] [place] [address], [place] [address] Sep, [facility] [address] [id number] [address] [place] [address], [place] [address] Sep, [facility] [address] [id number] [address] [place] [address], [place] [address] Sep, [facility] [address] [id number] [address] [place] [address], [place] [address] Sep, [facility] [address] [id number] [address] [place] [address], [place] [address] Sep, [facility] [address] [id number] [address] [place] [address], [place] [address] Sep, [facility] [address] [id number] [address] [place] [address], [place] [address] Aug, [facility] [address] [id number] [address] [place] [address], [place] [address] Aug, [facility] [address] [id number] [address] [place] [address], [place] [address] Jul, [facility] [address] [id number] [address] [place] [address], [place] [address] Jul, [facility] [address] [id number] [address] [place] [address], [place] [address] Jul, [facility] [address] [id number] [address] [place] [address], [place] [address] Jul, [facility] [address] [id number] [address] [place] [address], [place] [address] Jul, [facility] [address] [id number] [address] [place] [address], [place] [address] Jul, [facility] [address] [id number] [address] [place] [address], [place] [address] Jul, [facility] [address] [id number] [address] [place] [address], [place] [address] Jul, [facility] [address] [id number] [address] [place] [address], [place] [address] Jul, [facility] [address] [id number] [address] [place] [address], [place] [address] Jul, [facility] [address] [id number] [address] [place] [address], [place] [address] Jul, [facility] [address] [id number] [address] [place] [address], [place] [address] Jul, [facility] [address] [id number] [address] [place] [address], [place] [address] Jul, [facility] [address] [id number] [address] [place] [address], [place] [address] Jul, [facility] [address] [id number] [address] [place] [address], [place] [address] Jul, 2012 [facility] [address] [id number] [address] [place] [address], [place] [address] Jul, [facility] [address] [id number] [address] [place] [address], [place] [address] Jul, [facility] [address] [id number] [address] [place] [address] Jul, [facility] [address] [id number] [address] [place] [address], [place] [address] Jul, [facility] [address] [id number] [address] [place] [address] Jun, 2012 [facility] [address] [id number] [address] [place] [address] Jun, 2012 [facility] [address] [id number] [address] [place] [address] Jun, 2012 [facility] [address] [id number] [address] [place] [phone] Jun, 2012 [facility] [address] [id number] [address] [place] [phone] Jun, 2012 [facility] [address] [id number] [address] [place] [id number] Jun, 2012 [facility] [address] [id number] [address] [place] [phone] Jun, 2012 [facility] [address] [id number] [address] [place] [address], [place] [address] Jun, 2012 [facility] [address] [id number] [address] [place] [id number] Jun, [facility] [address] [id number] [address] [place] [phone] Jun, [facility] [address] [id number] [address] [place] [address], [place] [address] Jun, [facility] [address] [id number] [address] [place] [address], [place] [address] May, 2012 [facility] [address] [id number] [address] [place] [address], [place] [address] May, [facility] [address] [id number] [address] [place] [address], [place] [address] 19 May, 2012 [facility] [address] [id number] [address] [place] [address], [place] [address] 17 May, 2012 [facility] [facility] [address] [id number] [address] [place] [address], [place] [address] 11 May, 2013 [facility] [address] [id number] [address] [place] [address], [place] [address] May, [facility] [address] [id number] [address] [place] [address], [place] [address] May, [facility] [address] [id number] [address] [place] [address], [place] [address] 05 May, 2013 [facility] [address] [id number] [address] [place] [address], [place] [address] Apr, [facility] [address] [id number] [address] [place] [address], [place] [address] Apr, [facility] [address] [id number] [address] [place] [address], [place] [address] Apr, [facility] [address] [id number] [address] [place] [address], [place] [address] Apr, [facility] [address] [id number] [address] [place] [address], [place] [address] Apr, [facility] [address] [id number] [address] [place] [address], [place] [address] Mar, [facility] [address] [id number] [address] [place] [address], [place] [address] Mar, [facility] [address] [id number] [address] [place] [address], [place] [address] Mar, [facility] [address] [id number] [address] [place] [address], [place] [address] Mar, [facility] [address] [id number] [address] [place] [address], [place] [address] Mar, [facility] [address] [id number] [address] [place] [address], [place] [address] Mar, [facility] [address] [id number] [address] [place] [address], [place] [address] Mar, [facility] [address] [id number] [address] [place] [address], [place] [address] Mar, [facility] [address] [id number] [address] [place] [address], [place] [address] Feb, [facility] [address] [id number] [address] [place] [address], [place] [address] Feb, [facility] [address] [id number] [address] [place] [address], [place] [address] January, [facility] [address] [id number] [address] [place] [address], [place] [address] January, [facility] [address] [id number] [address] [place] [address], [place] [address] Dec, [facility] [address] [id number] [address] [place] [address], [place] [address] Dec, [facility] [address] [id number] [address] [place] [address], [place] [address] Nov, [facility] [address] [id number] [address] [place] [address], [place] [address] Nov, [facility] [address] [id number] [address] [place] [address], [place] [address] Nov, [facility] [address] [id number] [address] [place] [address], [place] [address] Nov, [facility] [address] [id number] [address] [place] [address], [place] [address] Oct, [facility] [address] [id number] [address] [place] [address], [place] [address] Oct, [facility] [address] [id number] [address] [place] [address], [place] [address] Oct, [facility] [address] [id number] [address] [place] [address], [place] [address] 26 Oct, 2012 [facility] [address] [id number] [address] [place] [address], [place] [address] 16 Oct, 2012 [facility] [address] [id number] [address] [place] [address], [place] [address] 14 Oct, 2012 [facility] [address] [id number] [address] [place] [address], [place] [address] 08 Oct, 2012 [facility] [address] [id number] [address] [place] [address], [place] [address] 07 Oct, 2012 [facility] [address] [id number] [address] [place] [address], [place] [address] 03 Oct, 2012 [facility] [address] [id number] [address] [place] [address], [place] [address] 30 Sep, 2012 [facility] [address] [id number] [address] [place] [address], [place] [address] Sep, [facility] [address] [id number] [address] [place] [address], [place] [address] Sep, [facility] [address] [id number] [address] [place] [address], [place] [address] Sep, [facility] [address] [id number] [address] [place] [address], [place] [address] 17 Sep, 2012 [facility] [address] [id number] [address] [place] [address], [place] [address] Sep, [facility] [address] [id number] [address] [place] [address], [place] [address] Sep, [facility] [address] [id number] [address] [place] [address], [place] [address] Sep, [facility] [address] [id number] [address] [place] [address], [place] [address] Aug, [facility] [address] [id number] [address] [place] [address], [place] [address] Aug, [facility] [address] [id number] [address] [place] [address], [place] [address] Aug, [facility] [address] [id number] [address] [place] [address], [place] [address] Aug, [facility] [address] [id number] [address] [place] [address], [place] [address] Aug, [facility] [address] [id number] [address] [place] [address], [place] [address] Aug, [facility] [address] [id number] [address] [place] [address], [place] [address] Aug, [facility] [address] [id number] [address] [place] [address], [place] [address] Aug, [facility] [address] [id number] [address] [place] [address], [place] [address] Jul, [facility] [address] [id number] [address] [place] [address], [place] [address] Jul, [facility] [address] [id number] [address] [place] [address], [place] [address] Jul, [facility] [address] [id number] [address] [place] [address], [place] [address] Jul, [facility] [address] [id number] [address] [place] [address], [place] [address] Jul, [facility] [address] [id number] [address] [place] [address] Jul, [facility] [address] [id number] [address] [place] [address], [place] [address] Jun, [facility] [address] [id number] [address] [place] [address], [place] [address] Jun, [facility] [address] [id number] [address] [place] [address], [place] [address] Jun, [facility] [address] [id number] [address] [place] [address], [place] [address] Jun, [facility] [address] [id number] [address] [place] [address], [place] [address] Jun, [facility] [address] [id number] [address] [place] [address], [place] [address] Jun, [facility] [address] [id number] [address] [place] [address], [place] [address] Jun, [facility] [address] [id number] [address] [place] [address], [place] [address] Jun, [facility] [address] [id number] [address] [place] [address], [place] [address] Jun, [facility] [address] [id number] [address] [place] [address], [place] [address] May, [facility] [address] [id number] [address] [place] [address], [place] [address] 24 May, 2012 [facility] [address] [id number] [address] [place] [address], [place] [address] 18 May, 2012 [facility] [address] [id number] [address] [place] [address], [place] [address] 30 Apr, 2012 [facility] [address] [id number] [address] [place] [address], [place] [address] Apr, [facility] [address] [id number] [address] [place] [address], [place] [address] Apr, [facility] [address] [id number] [facility] [place] [address] 14 Apr, 2012 [facility] [address] [id number] [address] [place] [address], [place] [address] Apr, [facility] [address] [id number] [address] [place] [address], [place] [address] Apr, [facility] [address] [id number] [address] [place] [address], [place] [address] Mar, [facility] [address] [id number] [address] [place] [address], [place] [address] Mar, [facility] [address] [id number] [address] [place] [address], [place] [address] Mar, [facility] [address] [id number] [address] [place] [address], [place] [address] Mar, [facility] [address] [id number] [address] [place] [address], [place] [address] Feb, [facility] [address] [id number] [address] [place] [address], [place] [address] Feb, [facility] [address] [id number] [address] [place] [address], [place] [address] Feb, [facility] [address] [id number] [address] [place] [address], [place] [address] Feb, [facility] [address] [id number] [address] [place] [address], [place] [address] Feb, [facility] [address] [id number] [address] [place] [address], [place] [address] January, [facility] [address] [id number] [address] [place] [address], [place] [address] January, [facility] [address] [id number] [address] [place] [address], [place] [address] January, [facility] [address] [id number] [address] [place] [address], [place] [address] January, [facility] [address] [id number] [address] [place] [address], [place] [address] January, [facility] [address] [id number] [address] [place] [address], [place] [address] January, [facility] [address] [id number] [address] [place] [address], [place] [address] Dec, [facility] [address] [id number] [address] [place] [address], [place] [address] Dec, [facility] [address] [id number] [address] [place] [address], [place] [address] Dec, [facility] [address] [id number] [address] [place] [address], [place] [address] Dec, [facility] [address] [id number] [address] [place] [address], [place] [address] Dec, [facility] [address] [id number] [address] [place] [address], [place] [address] Nov, [facility] [address] [id number] [address] [place] [address], [place] [address] Nov, [facility] [address] [id number] [address] [place] [address], [place] [address] Nov, [facility] [address] [id number] [address] [place] [address], [place] [address] Nov, [facility] [address] [id number] [address] [place] [address], [place] [address] Oct, [facility] [address] [id number] [address] [place] [address], [place] [address] Oct, [facility] [address] [id number] [address] [place] [address], [place] [address] 24 Oct, 2011 [facility] [address] [id number] [address] [place] [address], [place] [address] Oct, [facility] [address] [id number] [address] [place] [address], [place] [address] Oct, [facility] [address] [id number] [address] [place] [address], [place] [address] Sep, [facility] [address] [id number] [address] [place] [address], [place] [address] Sep, [facility] [address] [id number] [address] [place] [address], [place] [address] Sep, [facility] [address] [id number] [address] [place] [address], [place] [address] Sep, [facility] [address] [id number] [address] [place] [address], [place] [address] Sep, [facility] [address] [id number] [address] [place] [address], [place] [address] Sep, [facility] [address] [id number] [address] [place] [address], [place] [address] Aug, [facility] [address] [id number] [address] [place] [address], [place] [address] Aug, [facility] [address] [id number] [address] [place] [address], [place] [address] Aug, [facility] [address] [id number] [address] [place] [address], [place] [address] Jul, [facility] [address] [id number] [address] [place] [address], [place] [address] Jul, [facility] [address] [id number] [address] [place] [address], [place] [address] Jul, [facility] [address] [id number] [address] [place] [address], [place] [address] Jul, [facility] [address] [id number] [address] [place] [address], [place] [address] Jun, [facility] [address] [id number] [address] [place] [address], [place] [address] Jun, [facility] [address] [id number] [address] [place] [address], [place] [address] 18 Jun, 2011 [facility] [address] [id number] [address] [place] [address], [place] [address] 10 Jun, 2011 [facility] [address] [id number] [address] [place] [address], [place] [address] 10 Jun, 2011 [facility] [address] [id number] [address] [place] [address], [place] [address] 10 Jun, 2011 [facility] [address] [id number] [address] [place] [address], [place] [address] 11 Mar, 2011 [facility] [address] [id number] [address] [place] [address], [place] [address] 18 Dec, 2010 [facility] [address] [id number] [address] [place] [address], [place] [address] 11 Dec, 2010 [facility] [address] [id number] [address] [place] [address], [place] [address] 18 Nov, 2010 [facility] [address] [id number] [address] [place] [address], [place] [address] 16 Nov, 2010 [facility] [address] [id number] [address] [place] [address] Sep, [facility] [address] [id number] [address] [place] [address], [place] [address] 31 Aug, 2010 [facility] [address] [id number] [address] [place] [address] Aug, [facility] [address] [id number] [address] [place] [address], [place] [address] Aug, [facility] [address] [id number] [address] [place] [address], [place] [address] Aug, [facility] [address] [id number] [address] [place] [address], [place] [address] 27 Aug, 2010 [facility] [address] [id number] [address] [place] [address] 14 Aug, 2010 [facility] [address] [id number] [address] [place] [address], [place] [address] 08 Aug, 2010 [facility] [address] [id number] [address] [place] [address] 08 Aug, 2010 [facility] [address] [id number] [address] [place] [address] 07 Aug, 2010 [facility] [address] [id number] [address] [place] [address] 06 Aug, 2010 [facility] [address] [id number] [address] [place] [address], [place] [address] Aug, [facility] [address] [id number] [address] [place] [address] Aug, [facility] [address] [id number] [address] [place] [address] Jul, [facility] [address] [id number] [address] [place] [address] Jul, [facility] [address] [id number] [address] [place] [address] Jul, [facility] [address] [id number] [address] [place] [address] Jul, [facility] [address] [id number] [address] [place] [address] Jul, [facility] [address] [id number] [address] [place] [address] Jul, [facility] [address] [id number] [address] [place] [address] Jun, [facility] [address] [id number] [address] [place] [address] Jun, [facility] [address] [id number] [address] [place] [address] Jun, [facility] [address] [id number] [address] [place] [address], [place] [address] 13 Jun, 2010 [facility] [address] [id number] [address] [place] [address], [place] [address] 16 Apr, 2010 [facility] [address] [id number] [address] [place] [address], [place] [address] 20 Mar, 2010 [facility] [address] [id number] [address] [place] [address], [place] [address] 17 Feb, 2010 [facility] [address] [id number] [address] [place] [address], [place] [address] January, [facility] [address] [id number] [address] [place] [address], [place] [address] 15 Dec, 2009 [facility] [address] [id number] [address] [place] [address], [place] [address] Nov, [facility] [address] [id number] [address] [place] [address], [place] [address] 31 Aug, 2009 [facility] [address] [id number] [address] [place] [address], [place] [address] 23 Aug, 2009 [facility] [address] [id number] [address] [place] [address], [place] [address] Aug, [facility] [address] [id number] [address] [place] [address], [place] [address] 12 Jul, 2009 [facility] [address] [id number] [address] [place] [address], [place] [address] Jul, [facility] [address] [id number] [address] [place] [address], [place] [address] 07 Jul, 2009 [facility] [address] [id number] [address] [place] [address], [place] [address] 30 Jun, 2009 [facility] [address] [id number] [address] [place] [address], [place] [address] 29 Jun, 2009 [facility] [address] [id number] [address] [place] [address] [address] Jun, [facility] [address] [id number] [address] [place] [phone] Jun, [facility] [address] [id number] [address] [place] [phone] Jun, [facility] [address] [facility] [id number] [address] [place] [phone] Jun, [facility] [address] [id number] [address] [place] [id number] Apr, [facility] [address] [facility] [id number] [address] [place] [phone] Apr, [facility] [address] [facility] [id number] [address] [place] [phone] Feb, [facility] [address] [facility] [id number] [address] [place] [phone] January, [facility] [address] [facility] [id number] [address] [place] [phone] Dec, IMMUNIZATIONS No Known Immunizations SOCIAL HISTORY [...] History inability to urinate 09/16/15 Hospitalization History [facility] e[facility] 1999's Hospitalization History hyperkalemia 10/2017 Hospitalization History fluid in lung
[2020-03-01 17:22] LABS: CARBON DIOXIDE 25 MMOL/L (21-32)
--- OUTSIDE RECORDS SUMMARY | 2020-03-01 17:22 | XMS REPORT ---
Author Author Michele WASHBURN Organization [facility] Address [address] [place] [address] Care Team Providers Care Lens Inspector Name Role Phone NOEMI WASHBURN Unavailable PROBLEMS Type Condition ICD9-CM Code OMA11-CP Code Onset Dates Condition S tatus SNOMED Code Problem Cough R05 Active 94347583 Problem Benign prostatic hyperplasia with lower urinary tract symptoms, unspecified morphology N40.1 Active 84532 6007 Problem Eustachian tube dysfunction, unspecified laterality H69.80 Active 21637347 Problem Chronic pain G89.29 Active 2246428 1 Problem DM neuro manif type II E11.49 Active 81920995 Problem Diabetes E11.9 Active 09707914 Problem Leukocytosis D72.829 Active 1781224 06 Problem Falling R29.6 Active 935475590 Problem Pressure ulcer of other site, stage 3 L89.893 Active 436391172 Problem 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 Active 772368559 Problem Eye exam abnormal R93.8 Active 16 5146314 Problem Dysuria R30.0 Active 19257048 Problem Hypokalemia E87.6 Active 31018035 Problem Morbid obesity E66.01 Active 24869 6002 Problem Anxiety F41.9 Active 23217020 Problem Diabetic polyneuropathy associated with type 2 d iabetes mellitus E11.42 Active 17624365 Problem Essential hypertension I10 Active 72927144 Problem Bilateral primary osteoarthritis of knee M17.0 Active 713495990 Problem Polyneuropathy associated with underlying disease G63 Active 126157915 Problem Anemia of chronic illness D63.8 Acti ve 431739759 Problem Lymphocytosis D72.820 Active 141824 09 Problem Retinal edema H35.81 Active 746613 6 Problem Chronic lymphocytic leukemia C91.10 A ctive 55425849 Problem Bipolar disorder, in partial remission, most rec ent episode depressed F31.75 Active 13729409 Problem Pure hypercholesterolemia E78.00 Acti ve 569495105 Problem Primary osteoarthritis of right knee M17.11 Active 123286292331978 Problem Bipolar disorder F31.9 Active 137 16318 Problem Bipolar I disorder, most recent episode (or curr ent) mixed, moderate F31.62 Active 89304620 Problem Chronic diastolic (congestive) heart failure I50.3 2 Active 390292919 Problem Reactive airway disease J45.909 Active 513146876151 Problem Insomnia, unspecified type G47.00 Act sharon 882869518 Problem Other chronic pain G89.29 Active 8 8831718 Problem Other iron deficiency anemia D50.8 A ctive 72747183 Problem Mild cognitive impairment G31.84 Acti ve 069671768 Problem Skin cancer C44.90 Active 76373642 7 ALLERGIES No Information ENCOUNTERS Encounter Location Date Diagnosis [place] [address] [facility] [id number] [address] [place] [id number] Jun, [place] [address] [place] [id number] [address] [place] [id number] Jun, [place] [address] [place] [id number] [address] [place] [id number] May, [facility] [address] [facility] [id number] [address] [place] [id number] Apr, Chronic pain G89.29 and Bipo lar disorder F31.9 [place] [id number] [facility] [id number] [address] [place] [id number] Mar, Bipolar disorder F31.9 and C hronic pain G89.29 [facility] [address] [facility] [id number] [address] [place] [phone] Feb, Bipolar disorder F31.9 [facility] [address] [facility] [id number] [address] [place] [id number] Feb, Cellulitis of right upper ex tremity L03.113 and Skin abrasion T14.8XXA [facility] [address] [facility] [id number] [address] [place] [phone] Feb, Bipolar disorder, in partial remission, most recent episode depressed F31.75 and Mild cognitive impairment G31.84 [facility] [address] [id number] [address] [place] [id number] Feb, Chronic pain G89.29 [facility] [address] [id number] [address] [place] [id number] Feb, Bipolar disorder, in partial remission, most recent episode depressed F31.75 and Mild cognitive impairment G31.84 [facility] [address] [id number] [address] [place] [id number] January, Bipolar disorder, in partial remission, most recent episode depressed F31.75 and Mild cognitive impairment G31.84 [facility] [address] [id number] [address] [place] [id number] January, Chronic pain G89.29 and Bipo lar disorder F31.9 [facility] [address] [id number] [address] [place] [id number] January, Bipolar disorder, in partial remission, most recent episode depressed F31.75 and Mild cognitive impairment G31.84 [facility] [address] [id number] [address] [place] [id number] Dec, [facility] [address] [id number] [address] [place] [id number] Dec, Chronic pain G89.29 and Bipo lar disorder F31.9 [facility] [address] [id number] [address] [place] [id number] Dec, Edema of both lower extremit ies R60.0 [facility] [address] [id number] [address] [place] [id number] Dec, Bipolar disorder F31.9 [facility] [address] [id number] [address] [place] [id number] Dec, Bipolar disorder, in partial remission, most recent episode depressed F31.75 and Mild cognitive impairment G31.84 [facility] [address] [id number] [address] [place] [id number] Nov, [place] [address] [place] [id number] [address] [place] [id number] Nov, Chronic pain G89.29 [place] [address] [place] [id number] [address] [place] [id number] Nov, Bipolar disorder, in partial remission, most recent episode depressed F31.75 and Mild cognitive impairment G31.84 [place] [address] [place] [id number] [address] [place] [id number] Nov, Bipolar disorder F31.9 [place] [address] [place] [id number] [address] [place] [id number] Nov, Encounter for Medicare [facility] wellness exam Z00.00 ; [...] unspecified morphology N40.1 and Essential hypertension I10 [place] [id number] [place] [address] Oct, Chronic pain G89.29 [place] [id number] [place] [address] Oct, Diabetes E11.9 [place] [address] [place] [id number] [address] [place] [id number] Oct, Bipolar I disorder, most rec ent episode (or current) mixed, moderate F31.62 and Mild cognitive impairment G31.84 [place] [address] [place] [id number] [address] [place] [phone] Oct, Bipolar I disorder, most rec ent episode (or current) mixed, moderate F31.62 and Mild cognitive impairment G31.84 [place] [address] [place] [id number] [address] [place] [id number] Sep, Bipolar I disorder, most rec ent episode (or current) mixed, moderate F31.62 and Mild cognitive impairment G31.84 [facility] [address] [facility] [id number] [address] [place] [id number] Sep, [facility] [address] [facility] [id number] [address] [place] [id number] Sep, Diabetes E11.9 ; Hypoxia R09 .02 ; Hyperglycemia R73.9 ; Therapeutic drug monitoring Z51.81 ; BMI 50.0-59.9, adult Z68.43 and Skin cancer C44.90 [place] [address] [facility] [id number] [address] [place] [id number] Sep, Chronic pain G89.29 [place] [address] [place] [id number] [address] [place] [id number] Sep, Bipolar I disorder, most rec ent episode (or current) mixed, moderate F31.62 [facility] [address] [facility] [id number] [address] [place] [phone] Sep, [facility] [address] [facility] [id number] [address] [place] [phone] Sep, [facility] [address] [facility] [id number] [address] [place] [id number] Aug, Chronic pain G89.29 [facility] [address] [facility] [id number] [address] [place] [phone] Aug, Bipolar I disorder, most rec ent episode (or current) mixed, moderate F31.62 [facility] [address] [facility] [id number] [address] [place] [id number] Aug, Bipolar I disorder, most rec ent episode (or current) mixed, moderate F31.62 and Mild cognitive impairment G31.84 [facility] [address] [facility] [id number] [address] [place] [phone] Jul, [facility] [address] [id number] [address] [place] [id number] Jul, Chronic pain G89.29 [facility] [address] [id number] [address] [place] [id number] Jul, Bipolar I disorder, most rec ent episode (or current) mixed, moderate F31.62 and Mild cognitive impairment G31.84 [facility] [address] [id number] [address] [place] [id number] Jul, Bipolar I disorder, most rec ent episode (or current) mixed, moderate F31.62 and MCI (mild cognitive impairment) G31.84 [facility] [address] [id number] [address] [place] [id number] Jul, [facility] [address] [id number] [address] [place] [id number] Jul, [facility] [address] [id number] [address] [place] [id number] Jul, Bipolar I disorder, most rec ent episode (or current) mixed, moderate F31.62 [facility] [address] [id number] [address] [place] [id number] Jul, Chronic pain G89.29 [facility] [address] [id number] [address] [place] [id number] Jun, Bipolar I disorder, most rec ent episode (or current) mixed, moderate F31.62 [facility] [address] [id number] [address] [place] [id number] Jun, Pre-procedure lab exam Z01.8 12 [facility] [address] [id number] [address] [place] [phone] Jun, [facility] [address] [id number] [place] [address] [id number] Jun, [facility] [address] [id number] [address] [place] [phone] Jun, [facility] [address] [address] Jun, Forgetfulness R68.89 ; Pre-s yncope R55 ; Localized edema R60.0 ; Other iron deficiency anemia D50.8 and BMI 50.0-59.9, adult Z68.43 [place] [address] [address] Jun, Chronic pain G89.29 [place] [address] [address] Jun, Chronic pain G89.29 [place] [address] [address] Jun, Bipolar I disorder, most rec ent episode (or current) mixed, moderate F31.62 [place] [address] [address] May, Chronic pain G89.29 [place] [address] [address] Apr, [place] [address] [address] Apr, Chronic pain G89.29 [place] [address] [place] [id number] [place] [id number] Apr, Primary osteoarthritis of ri ght knee M17.11 [place] [address] [address] Mar, [place] [address] [address] Mar, BMI 50.0-59.9, adult Z68.43 and Bipolar disorder, in partial remission, most recent episode depressed F31.75 [place] [address] [place] [id number] [place] [address] Mar, Diabetes E11.9 ; Pure hyperc holesterolemia E78.00 ; Essential hypertension I10 ; Nausea with vomiting, unspecified R11.2 and Headache, unspecified headache type R51 [facility] [address] [facility] [id number] [address] [place] [id number] Mar, Bipolar I disorder, most rec ent episode (or current) mixed, moderate F31.62 [facility] [address] [facility] [id number] [address] [place] [phone] Mar, Bipolar I disorder, most rec ent episode (or current) mixed, moderate F31.62 [place] [address] [place] [id number] [address] [place] [id number] Mar, Chronic pain G89.29 [place] [address] [facility] [id number] [address] [place] [id number] Mar, Bipolar I disorder, most rec ent episode (or current) mixed, moderate F31.62 [place] [address] [place] [id number] [address] [place] [id number] Feb, Bipolar I disorder, most rec ent episode (or current) mixed, moderate F31.62 [place] [address] [place] [id number] [address] [place] [id number] Feb, Chronic pain G89.29 [facility] [address] [place] [id number] [address] [place] [id number] Feb, Decubitus ulcer of right josselin t, stage 3 L89.893 and BMI 50.0-59.9, adult Z68.43 [place] [address] [place] [id number] [address] [place] [id number] Feb, Bipolar I disorder, most rec ent episode (or current) mixed, moderate F31.62 [place] [address] [place] [id number] [address] [place] [id number] Feb, [facility] [address] [facility] [id number] [address] [place] [id number] January, [facility] [address] [facility] [id number] [address] [place] [id number] January, Chronic pain G89.29 [facility] [address] [facility] [id number] [address] [place] [id number] January, Bipolar I disorder, most rec ent episode (or current) mixed, moderate F31.62 [facility] [address] [place] [id number] [address] [place] [id number] January, Bipolar I disorder, most rec ent episode (or current) mixed, moderate F31.62 [place] [address] [place] [id number] [address] [place] [id number] Dec, Bipolar I disorder, most rec ent episode (or current) mixed, moderate F31.62 and BMI 50.0-59.9, adult Z68.43 [place] [address] [place] [id number] [place] [address] Dec, Bipolar I disorder, most rec ent episode (or current) mixed, moderate F31.62 [place] [address] [address] Dec, Chronic pain G89.29 [place] [address] [place] [id number] [place] [id number] Dec, DM neuro manif type II E11.4 9 ; Right flank pain R10.9 ; [employer] 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 Z79.891 ; Encounter for medication monitoring Z51.81 and BMI 50.0-59.9, adult Z68.43 [place] [address] [place] [id number] [address] [place] [id number] Dec, Bipolar I disorder, most rec ent episode (or current) mixed, moderate F31.62 [place] [address] [place] [id number] [address] [place] [id number] Nov, Bipolar I disorder, most rec ent episode (or current) mixed, moderate F31.62 [place] [address] [place] [id number] [address] [place] [id number] Nov, Chronic pain G89.29 [place] [address] [place] [id number] [address] [place] [address] Nov, Bipolar I disorder, most rec ent episode (or current) mixed, moderate F31.62 [place] [address] [place] [id number] [address] [place] [id number] Nov, Hypokalemia E87.6 [place] [address] [place] [id number] [place] [id number] Nov, Bipolar I disorder, most rec ent episode (or current) mixed, moderate F31.62 [place] [address] [place] [id number] [place] [id number] Oct, Chronic pain G89.29 [place] [address] [place] [id number] [place] [address] Oct, BMI 50.0-59.9, adult Z68.43 and Bipolar I disorder, most recent episode (or current) mixed, moderate F31.62 [place] [address] [address] Oct, Bipolar I disorder, most rec ent episode (or current) mixed, moderate F31.62 [place] [address] [address] Oct, [place] [address] [address] Oct, Hypokalemia E87.6 [place] [address] [address] Oct, DM neuro manif type II E11.4 9 [place] [address] [address] Oct, Bipolar I disorder, most rec ent episode (or current) mixed, moderate F31.62 [place] [address] [place] [id number] [place] [address] Oct, Bipolar I disorder, most rec ent episode (or current) mixed, moderate F31.62 [place] [address] [address] 14 Oct, 2017 Hyperkalemia E87.5 ; Falling R29.6 ; BMI 50.0-59.9, adult Z68.43 and Acute left ankle pain M25.572 [place] [address] [address] 08 Oct, 2017 DM neuro manif type II E11.4 9 [place] [address] [address] Oct, [place] [address] [address] Sep, Chronic pain G89.29 [place] [address] [address] Sep, [place] [address] [address] Sep, Bilateral primary osteoarthr itis of knee M17.0 [place] [address] [address] 18 Sep, 2017 Generalized edema R60.1 [place] [address] [address] 16 Sep, 2017 Bipolar I disorder, most rec ent episode (or current) mixed, moderate F31.62 [place] [address] [address] 15 Sep, 2017 Hypoxia R09.02 ; Other hyper volemia E87.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 ; Anemia of chronic illness D63.8 and BMI 50.0- 59.9, adult Z68.43 [place] [address] [address] Sep, [place] [address] [facility] [id number] [address] [place] [id number] Sep, Bipolar I disorder, most rec ent episode (or current) mixed, moderate F31.62 [facility] [address] [facility] [id number] [address] [place] [address] Aug, Chronic pain G89.29 [facility] [address] [facility] [id number] [address] [place] [id number] Aug, Generalized edema R60.1 [facility] [address] [id number] [address] [place] [phone] Aug, [facility] [address] [facility] [id number] [address] [place] [phone] Aug, [facility] [address] [facility] [id number] [address] [place] [id number] Aug, Bipolar I disorder, most rec ent episode (or current) mixed, moderate F31.62 [facility] [address] [facility] [id number] [address] [place] [id number] 07 Aug, 2017 Bipolar I disorder, most rec ent episode (or current) mixed, moderate F31.62 [facility] [address] [facility] [id number] [address] [place] [id number] 04 Aug, 2017 Chronic pain G89.29 [facility] [address] [facility] [id number] [address] [place] [id number] 30 Jul, 2017 Bipolar I disorder, most rec ent episode (or current) mixed, moderate F31.62 [facility] [address] [facility] [id number] [address] [place] [id number] 27 Jul, 2017 Bipolar I disorder, most rec ent episode (or current) mixed, moderate F31.62 and BMI 60.0-69.9, adult Z68.44 [facility] [address] [facility] [id number] [address] [place] [id number] 16 Jul, 2017 Bipolar I disorder, most rec ent episode (or current) mixed, moderate F31.62 [place] [address] [facility] [id number] [address] [place] [id number] Jul, Chronic pain G89.29 [facility] [address] [facility] [id number] [address] [place] [phone] Jul, Bipolar I disorder, most rec ent episode (or current) mixed, moderate F31.62 [facility] [address] [facility] [id number] [address] [place] [phone] Jun, Polyneuropathy associated wi th underlying disease G63 and Diabetes E11.9 [facility] [address] [facility] [id number] [address] [place] [address] Jun, Bipolar I disorder, most rec ent episode (or current) mixed, moderate F31.62 [place] [address] [facility] [id number] [address] [place] [id number] Jun, Chronic pain G89.29 [facility] [address] [facility] [id number] [address] [place] [phone] May, Bipolar I disorder, most rec ent episode (or current) mixed, moderate F31.62 [place] [address] [facility] [id number] [address] [place] [address] May, Bipolar I disorder, most rec ent episode (or current) mixed, moderate F31.62 [place] [address] [facility] [id number] [address] [place] [address] May, Diabetic polyneuropathy asso ciated with type 2 diabetes mellitus E11.42 [facility] [address] [facility] [id number] [address] [place] [id number] 18 May, 2017 Bipolar I disorder, most rec ent episode (or current) mixed, moderate F31.62 [place] [address] [facility] [id number] [address] [place] [id number] 13 May, 2017 Bipolar I disorder, most rec ent episode (or current) mixed, moderate F31.62 [place] [address] [place] [id number] [address] [place] [address] May, Chronic pain G89.29 [facility] [address] [id number] [address] [place] [phone] Apr, Bipolar I disorder, most rec ent episode (or current) mixed, moderate F31.62 [facility] [address] [id number] [address] [place] [id number] Apr, [facility] [address] [facility] [id number] [address] [place] [id number] Apr, Chronic pain G89.29 and DM n euro manif type II E11.49 [facility] [address] [id number] [address] [place] [id number] Apr, [facility] [address] [facility] [id number] [address] [place] [id number] Apr, Bipolar I disorder, most rec ent episode (or current) mixed, moderate F31.62 [facility] [address] [facility] [id number] [address] [place] [phone] Apr, Chronic pain G89.29 [facility] [address] [facility] [id number] [address] [place] [id number] Apr, Iliotibial band syndrome, le ft M76.32 [facility] [address] [facility] [id number] [address] [place] [id number] Apr, Bipolar I disorder, most rec ent episode (or current) mixed, moderate F31.62 [facility] [address] [facility] [id number] [address] [place] [id number] Mar, Bipolar I disorder, most rec ent episode (or current) mixed, moderate F31.62 [facility] [address] [facility] [id number] [address] [place] [id number] Mar, Bipolar I disorder, most rec ent episode (or current) mixed, moderate F31.62 [facility] [address] [facility] [id number] [address] [place] [id number] Mar, [facility] [address] [place] [id number] [address] [place] [id number] Mar, Bipolar I disorder, most rec ent episode (or current) mixed, moderate F31.62 [facility] [address] [facility] [id number] [address] [place] [id number] Mar, Chronic pain G89.29 [facility] [address] [facility] [id number] [address] [place] [id number] Mar, Bipolar I disorder, most rec ent episode (or current) mixed, moderate F31.62 [facility] [address] [facility] [id number] [address] [place] [id number] Mar, Bipolar I disorder, most rec ent episode (or current) mixed, moderate F31.62 [facility] [address] [facility] [id number] [address] [place] [id number] Mar, Acute pain of left knee M25. 562 ; Left hip pain M25.552 ; Generalized edema R60.1 and Tongue swelling R22.0 [facility] [address] [facility] [id number] [address] [place] [id number] Mar, [facility] [address] [facility] [id number] [address] [place] [id number] Feb, Chronic pain G89.29 [facility] [address] [facility] [id number] [address] [place] [id number] Feb, Diabetes E11.9 [facility] [address] [facility] [id number] [address] [place] [id number] January, Chronic pain G89.29 [facility] [address] [facility] [id number] [address] [place] [id number] January, [facility] [address] [facility] [id number] [address] [place] [id number] January, Bipolar I disorder, most rec ent episode (or current) mixed, moderate F31.62 [facility] [address] [facility] [id number] [address] [place] [id number] Dec, Bipolar I disorder, most rec ent episode (or current) mixed, moderate F31.62 [facility] [address] [facility] [id number] [address] [place] [id number] Dec, Chronic pain G89.29 [facility] [address] [facility] [id number] [address] [place] [id number] Dec, Bipolar I disorder, most rec ent episode (or current) mixed, moderate F31.62 [facility] [address] [facility] [id number] [address] [place] [id number] Dec, Diabetes E11.9 ; Essential h ypertension I10 ; Chronic pain G89.29 and Morbid obesity E66.01 [facility] [address] [facility] [id number] [address] [place] [id number] Dec, [facility] [address] [facility] [id number] [address] [place] [id number] Dec, Bipolar I disorder, most rec ent episode (or current) mixed, moderate F31.62 [facility] [address] [facility] [id number] [address] [place] [id number] Dec, Bipolar I disorder, most rec ent episode (or current) mixed, moderate F31.62 [facility] [address] [facility] [id number] [address] [place] [id number] Nov, Chronic pain G89.29 [facility] [address] [facility] [id number] [address] [place] [id number] Nov, Bipolar I disorder, most rec ent episode (or current) mixed, moderate F31.62 [facility] [address] [facility] [id number] [address] [place] [id number] Nov, [facility] [address] [facility] [id number] [address] [place] [id number] Nov, Bipolar I disorder, most rec ent episode (or current) mixed, moderate F31.62 [facility] [address] [facility] [id number] [address] [place] [id number] Nov, Bipolar I disorder, most rec ent episode (or current) mixed, moderate F31.62 [facility] [address] [facility] [id number] [address] [place] [id number] Nov, [facility] [address] [facility] [id number] [address] [place] [id number] Nov, [facility] [address] [facility] [id number] [address] [place] [id number] Nov, [facility] [address] [facility] [id number] [address] [place] [id number] Oct, Chronic pain G89.29 [facility] [address] [facility] [id number] [address] [place] [id number] Oct, Bipolar I disorder, most rec ent episode (or current) mixed, moderate F31.62 [facility] [address] [facility] [id number] [address] [place] [id number] Oct, [facility] [address] [facility] [id number] [address] [place] [id number] Oct, Chronic pain G89.29 ; Diabet es E11.9 ; Anxiety F41.9 and 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 [facility] [address] [facility] [id number] [address] [place] [id number] Oct, [facility] [address] [facility] [id number] [address] [place] [id number] Oct, Diabetes E11.9 [facility] [address] [facility] [id number] [address] [place] [id number] Oct, Bipolar I disorder, most rec ent episode (or current) mixed, moderate F31.62 [facility] [address] [facility] [id number] [address] [place] [phone] Sep, Chronic pain G89.29 [facility] [address] [facility] [id number] [address] [place] [id number] Sep, Chronic pain G89.29 [facility] [address] [id number] [address] [place] [id number] Aug, Chronic pain G89.29 [facility] [address] [id number] [address] [place] [id number] Jul, [facility] [address] [facility] [id number] [address] [place] [id number] Jul, Diabetes E11.9 [facility] [address] [id number] [address] [place] [id number] Jul, Chronic pain G89.29 [facility] [address] [id number] [address] [place] [id number] Jul, Bipolar I disorder, most rec ent episode (or current) mixed, moderate F31.62 [facility] [address] [facility] [id number] [address] [place] [id number] Jun, Bipolar I disorder, most rec ent episode (or current) mixed, moderate F31.62 [facility] [address] [facility] [id number] [address] [place] [id number] Jun, [facility] [address] [facility] [id number] [address] [place] [id number] Jun, Bipolar I disorder, most rec ent episode (or current) mixed, moderate F31.62 [facility] [address] [facility] [id number] [address] [place] [id number] 30 May, 2016 Insomnia, unspecified type G 47.00 [facility] [address] [id number] [address] [place] [id number] May, Bipolar I disorder, most rec ent episode (or current) mixed, moderate F31.62 [facility] [address] [facility] [id number] [address] [place] [id number] 14 May, 2016 [facility] [address] [facility] [id number] [address] [place] [id number] May, Bipolar I disorder, most rec ent episode (or current) mixed, moderate F31.62 [place] [id number] [facility] [id number] [address] [place] [id number] May, Diabetes E11.9 and Essential hypertension I10 [facility] [address] [facility] [id number] [address] [place] [id number] Apr, Chronic pain G89.29 [facility] [address] [facility] [id number] [address] [place] [id number] Apr, Bipolar I disorder, most rec ent episode (or current) mixed, moderate F31.62 [facility] [address] [facility] [id number] [address] [place] [id number] Apr, [facility] [address] [facility] [id number] [address] [place] [id number] Apr, [facility] [place] [address] [place] [id number] [address] [place] [id number] Mar, Chronic pain G89.29 ; Headac he, unspecified headache type R51 ; Neuropathy G62.9 ; Pain of right hip joint M25.551 and Essential hypertension I10 [facility] [address] [facility] [id number] [address] [place] [id number] Mar, Chronic pain G89.29 [place] [address] [facility] [id number] [address] [place] [id number] Mar, Bipolar I disorder, most rec ent episode (or current) mixed, moderate F31.62 [facility] [address] [facility] [id number] [address] [place] [id number] Feb, Bipolar I disorder, most rec ent episode (or current) mixed, moderate F31.62 and Insomnia, unspecified type G47.00 [facility] [address] [facility] [id number] [address] [place] [id number] Feb, Chronic pain G89.29 [facility] [place] [address] [facility] [id number] [address] [place] [id number] Feb, Bipolar I disorder, most rec ent episode (or current) mixed, moderate F31.62 [facility] [address] [id number] [address] [place] [id number] January, Bipolar I disorder, most rec ent episode (or current) mixed, moderate F31.62 [facility] [address] [id number] [address] [place] [id number] January, Chronic pain G89.29 [facility] [address] [id number] [address] [place] [id number] January, Chronic pain G89.29 and Esse ntial hypertension I10 [facility] [address] [id number] [address] [place] [id number] January, Bipolar I disorder, most rec ent episode (or current) mixed, moderate F31.62 [facility] [address] [id number] [address] [place] [id number] Dec, [facility] [address] [id number] [address] [place] [id number] Dec, [facility] [address] [id number] [address] [place] [id number] Dec, [facility] [address] [facility] [id number] [address] [place] [id number] Dec, [facility] [address] [id number] [address] [place] [id number] Nov, Reactive airway disease J45. 909 [facility] [address] [id number] [address] [place] [id number] Nov, [facility] [address] [id number] [address] [place] [id number] Nov, [facility] [address] [id number] [address] [place] [id number] Nov, [facility] [address] [id number] [address] [place] [id number] Nov, [place] [address] [id number] Nov, Onychomycosis B35.1 ; Hammer toe M20.40 ; Evans or callus L84 and DM neuro manif type II E11.49 [place] [address] [id number] Nov, Chronic pain G89.29 ; Leukoc ytosis D72.829 and Diabetes E11.9 [place] [address] [id number] Nov, [place] [address] [address] Oct, Bronchitis J40 [place] [address] [id number] Oct, [place] [address] [address] Oct, [place] [address] [address] Oct, Mastoiditis, unspecified lat erality H70.90 and Type 2 diabetes mellitus with complication E11.8 [place] [address] [id number] Sep, [place] [address] [id number] Sep, Dysuria R30.0 ; Cough R05 ; Benign prostatic hyperplasia with lower urinary tract symptoms, unspecified morphology N40.1 ; Hypokalemia E87.6 and Eustachian tube dysfunction, unspecified laterality H69.80 [place] [address] [address] Sep, Moderate mixed bipolar I dis order F31.[address] [address] Sep, Hypokalemia E87.6 [facility] [address] [id number] [address] [place] [id number] Sep, [facility] [address] [facility] [id number] [address] [place] [id number] Sep, Upper respiratory tract infe ction, unspecified type J06.9 [facility] [address] [facility] [id number] [address] [place] [id number] Aug, [facility] [address] [id number] [address] [place] [id number] Aug, Dysuria R30.0 [facility] [address] [facility] [id number] [address] [place] [id number] Aug, [facility] [address] [facility] [id number] [address] [place] [id number] Jul, [facility] [address] [facility] [id number] [address] [place] [id number] Jul, [facility] [address] [facility] [id number] [address] [place] [id number] Jul, [facility] [address] [facility] [id number] [address] [place] [id number] Jul, [facility] [address] [facility] [id number] [address] [place] [id number] Jun, [facility] [address] [id number] [address] [place] [id number] Jun, [facility] [address] [facility] [id number] [address] [place] [id number] Jun, [facility] [address] [facility] [id number] [address] [place] [id number] May, [facility] [address] [facility] [id number] [address] [place] [id number] May, Bipolar I disorder, most rec ent episode (or current) mixed, moderate 296.62 [facility] [address] [facility] [id number] [address] [place] [id number] May, [facility] [address] [facility] [id number] [address] [place] [id number] May, Bipolar I disorder, most rec ent episode (or current) mixed, moderate 296.62 and Major depressive disorder, recurrent episode, severe, specified as with psychotic behavior 296.34 [facility] [address] [facility] [id number] [address] [place] [id number] May, Bipolar I disorder, most rec ent episode (or current) mixed, moderate 296.62 [facility] [address] [facility] [id number] [address] [place] [id number] May, [facility] [address] [place] [id number] [address] [place] [id number] Apr, [facility] [address] [place] [id number] [address] [place] [id number] Apr, [facility] [address] [place] [id number] [address] [place] [id number] Apr, Unspecified disorder of kidn ey and ureter 593.9 and Diabetes mellitus type 2, uncontrolled 250.02 [facility] [address] [place] [id number] [address] [place] [id number] Apr, [facility] [address] [facility] [id number] [address] [place] [phone] Apr, [facility] [address] [place] [id number] [address] [place] [id number] Apr, [facility] [address] [facility] [id number] [address] [place] [id number] Apr, [facility] [address] [place] [id number] [address] [place] [id number] Apr, Diabetes mellitus type II, u ncontrolled 250.02 [facility] [address] [facility] [id number] [address] [place] [id number] Apr, [facility] [address] [place] [id number] [address] [place] [id number] Mar, [facility] [address] [place] [id number] [address] [place] [phone] Mar, [facility] [address] [place] [id number] [address] [place] [id number] Mar, [facility] [address] [place] [id number] [place] [address] Mar, Major depressive disorder, r ecurrent episode, severe, specified as with psychotic behavior 296.34 and Bipolar I disorder, most recent episode (or current) mixed, moderate 296.62 [facility] [address] [place] [id number] [place] [address] Mar, Diabetes 250.00 ; Anuria 788 .5 ; Nausea and vomiting 787.01 and Diarrhea 787.91 [facility] [address] [place] [id number] [address] [place] [id number] Mar, Diabetes 250.00 [facility] [address] [place] [id number] [address] [place] [id number] Mar, [facility] [address] [place] [id number] [address] [place] [id number] Mar, Diabetes 250.00 [facility] [address] [place] [id number] [address] [place] [id number] Mar, [facility] [address] [place] [id number] [address] [place] [id number] Mar, [facility] [address] [place] [id number] [address] [place] [id number] Mar, [facility] [address] [place] [id number] [address] [place] [phone] Mar, [facility] [address] [place] [id number] [address] [place] [id number] Mar, Bipolar I disorder, most rec ent episode (or current) mixed, moderate 296.62 and Major depressive disorder, recurrent episode, severe, specified as with psychotic behavior 296.[address] [id number] Mar, Magnesium deficiency 275.2 ; Hypokalemia 276.8 ; Nausea & vomiting 787.01 and Diabetes mellitus type 2, uncontrolled 250.[address] [address] Feb, [address] [address] Feb, Bipolar I disorder, most rec ent episode (or current) mixed, moderate 296.[address] [address] Feb, Nausea and vomiting 787.01 ; Left elbow pain 719.42 ; Anuria 788.5 and Diabetes 250.[address] [address] Feb, [address] [address] Feb, Hypopotassemia 276.8 and Hyp okalemia 276.[address] [address] Feb, Hypopotassemia 276.8 and Hyp okalemia 276.[address] [address] Feb, Seborrheic keratoses 702.[address] [address] Feb, Hypopotassemia 276.8 and Low magnesium levels 275.[address] [address] January, [address] [address] January, [facility] [address] [id number] [address] [place] [id number] January, [facility] [address] [id number] [address] [place] [id number] January, Scalp lesion 709.9 [facility] [address] [id number] [address] [place] [id number] January, [facility] [address] [id number] [address] [place] [id number] Dec, Tear of medial cartilage or meniscus of knee, current 836.0 and 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 [facility] [address] [id number] [address] [place] [phone] Dec, [facility] [address] [id number] [address] [place] [phone] Dec, [facility] [address] [id number] [address] [place] [id number] Dec, Squamous cell carcinoma, 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 [facility] [address] [id number] [address] [place] [id number] Dec, [facility] [address] [id number] [address] [place] [phone] Dec, [facility] [address] [id number] [address] [place] [id number] Nov, [facility] [address] [id number] [address] [place] [phone] Nov, [facility] [address] [id number] [address] [place] [phone] Nov, [facility] [address] [id number] [address] [place] [id number] Nov, [facility] [address] [id number] [address] [place] [id number] Nov, [facility] [address] [id number] [address] [place] [address], [place] [address] Nov, 2014 [facility] [address] [id number] [address] [place] [address], [place] [address] Nov, [facility] [address] [id number] [address] [place] [address], [place] [address] Nov, 2014 [facility] [address] [id number] [address] [place] [address], [place] [address] Nov, 2014 [facility] [address] [id number] [address] [place] [address], [place] [address] Nov, 2014 [facility] [address] [id number] [address] [place] [address], [place] [address] Nov, [facility] [address] [id number] [address] [place] [address], [place] [address] Nov, [facility] [address] [id number] [address] [place] [address], [place] [address] Oct, 2014 [facility] [address] [id number] [address] [place] [address], [place] [address] Oct, 2014 [facility] [address] [id number] [address] [place] [address], [place] [address] Oct, 2014 [facility] [address] [id number] [address] [place] [phone] Oct, 2014 [facility] [address] [id number] [address] [place] [id number] Oct, 2014 [facility] [address] [id number] [address] [place] [address], [place] [address] Oct, 2014 [facility] [address] [id number] [address] [place] [address], [place] [address] Oct, 2014 [facility] [address] [id number] [address] [place] [id number] Oct, 2014 [facility] [address] [id number] [address] [place] [id number] Oct, [facility] [address] [id number] [address] [place] [address], [place] [address] Sep, [facility] [address] [id number] [address] [place] [address], [place] [address] Sep, [facility] [address] [id number] [address] [place] [address], [place] [address] Sep, [facility] [address] [id number] [address] [place] [address], [place] [address] Sep, [facility] [address] [id number] [address] [place] [address], [place] [address] Sep, [facility] [address] [id number] [address] [place] [address], [place] [address] Sep, [facility] [address] [id number] [address] [place] [address], [place] [address] Sep, [facility] [address] [id number] [address] [place] [address], [place] [address] Sep, [facility] [address] [id number] [address] [place] [address], [place] [address] Sep, [facility] [address] [id number] [address] [place] [address], [place] [address] Sep, [facility] [address] [id number] [address] [place] [address], [place] [address] Sep, [facility] [address] [id number] [address] [place] [address], [place] [address] Sep, [facility] [address] [id number] [address] [place] [address], [place] [address] Sep, [facility] [address] [id number] [address] [place] [address], [place] [address] Sep, [facility] [address] [id number] [address] [place] [address], [place] [address] Sep, [facility] [address] [id number] [address] [place] [address], [place] [address] Sep, [facility] [address] [id number] [address] [place] [address], [place] [address] Aug, [facility] [address] [id number] [facility] [address] Aug, [facility] [address] [id number] [address] [place] [address], [place] [address] Aug, [facility] [place] [address] [id number] [address] [place] [address], [place] [address] Aug, [facility] [address] [id number] [address] [place] [address], [place] [address] Aug, [facility] [address] [id number] [address] [place] [address], [place] [address] Aug, [facility] [address] [id number] [address] [place] [address], [place] [address] Aug, [facility] [address] [id number] [address] [place] [address], [place] [address] Aug, [facility] [address] [id number] [address] [place] [address], [place] [address] Aug, [facility] [address] [id number] [address] [place] [address], [place] [address] Aug, [facility] [address] [id number] [address] [place] [address], [place] [address] Aug, [facility] [place] [id number] Aug, [facility] [place] [address] [id number] [address] [place] [address], [place] [address] Aug, [facility] [address] [id number] [address] [place] [address], [place] [address] Aug, [facility] [address] [id number] [address] [place] [address], [place] [address] Aug, [facility] [address] [id number] [address] [place] [address], [place] [address] Aug, [facility] [address] [id number] [address] [place] [address], [place] [address] Aug, [facility] [address] [id number] [address] [place] [address], [place] [address] Aug, [facility] [address] [id number] [address] [place] [address], [place] [address] Aug, [facility] [address] [id number] [address] [place] [address], [place] [address] Aug, [facility] [address] [id number] [address] [place] [address], [place] [address] Aug, [facility] [address] [id number] [address] [place] [address], [place] [address] Aug, [facility] [address] [id number] [address] [place] [address], [place] [address] Aug, [facility] [address] [id number] [address] [place] [address], [place] [address] Aug, [facility] [address] [id number] [address] [place] [address], [place] [address] Aug, [facility] [address] [id number] [address] [place] [address], [place] [address] Aug, [facility] [address] [id number] [address] [place] [address], [place] [address] Aug, [facility] [address] [id number] [address] [place] [address], [place] [address] Aug, [facility] [address] [id number] [address] [place] [address], [place] [address] Aug, [facility] [address] [id number] [address] [place] [address], [place] [address] Aug, [facility] [address] [id number] [address] [place] [address], [place] [address] Jul, [facility] [address] [id number] [address] [place] [address], [place] [address] Jul, [facility] [address] [id number] [address] [place] [address], [place] [address] Jul, [facility] [address] [id number] [address] [place] [address], [place] [address] Jul, [facility] [address] [id number] [address] [place] [address], [place] [address] Jul, [facility] [address] [id number] [address] [place] [address], [place] [address] Jul, [facility] [address] [id number] [address] [place] [address], [place] [address] Jul, [facility] [address] [id number] [address] [place] [address], [place] [address] Jul, [facility] [address] [id number] [address] [place] [address], [place] [address] Jul, [facility] [address] [id number] [address] [place] [address], [place] [address] Jul, [facility] [address] [id number] [address] [place] [address], [place] [address] Jun, [facility] [address] [id number] [address] [place] [address], [place] [address] Jun, [facility] [address] [id number] [address] [place] [address] 16 Jun, 2014 [facility] [address] [id number] [address] [place] [address], [place] [address] 16 Jun, 2014 [facility] [address] [id number] [address] [place] [address], [place] [address] 15 Jun, 2014 [facility] [address] [id number] [address] [place] [address], [place] [address] 15 Jun, 2014 [facility] [address] [id number] [address] [place] [address], [place] [address] 05 Jun, 2014 [facility] [address] [id number] [address] [place] [address], [place] [address] Jun, [facility] [address] [id number] [address] [place] [address], [place] [address] Jun, [facility] [address] [id number] [address] [place] [address], [place] [address] Jun, [facility] [address] [id number] [address] [place] [address], [place] [address] 29 May, 2013 [facility] [address] [id number] [address] [place] [address], [place] [address] 29 May, 2013 [facility] [address] [id number] [address] [place] [address], [place] [address] 26 May, 2013 [facility] [address] [id number] [address] [place] [address], [place] [address] 26 May, 2013 [facility] [address] [id number] [address] [place] [address], [place] [address] 17 May, 2013 [facility] [address] [id number] [address] [place] [address], [place] [address] 17 May, 2013 [facility] [address] [id number] [address] [place] [address], [place] [address] 15 May, 2013 [facility] [address] [id number] [address] [place] [address], [place] [address] 15 Sep, 2013 [facility] [address] [id number] [address] [place] [address], [place] [address] 15 Sep, 2013 [facility] [address] [id number] [address] [place] [address], [place] [address] 15 May, 2013 [facility] [address] [id number] [address] [place] [address], [place] [address] 10 May, 2013 [facility] [address] [id number] [address] [place] [address], [place] [address] May, [facility] [address] [id number] [facility] [address] May, [facility] [address] [id number] [address] [place] [address], [place] [address] May, [facility] [address] [id number] [address] [place] [address], [place] [address] May, [facility] [address] [id number] [address] [place] [address], [place] [address] May, [facility] [address] [id number] [address] [place] [address], [place] [address] Apr, [facility] [address] [id number] [address] [place] [address], [place] [address] Apr, [facility] [address] [id number] [address] [place] [address], [place] [address] Apr, [facility] [address] [id number] [address] [place] [address], [place] [address] Apr, [facility] [address] [id number] [address] [place] [address], [place] [address] Apr, [facility] [address] [id number] [address] [place] [address], [place] [address] Apr, [facility] [address] [id number] [address] [place] [address], [place] [address] Apr, [facility] [address] [id number] [address] [place] [address], [place] [address] Apr, [facility] [address] [id number] [address] [place] [address], [place] [address] Apr, [facility] [address] [id number] [address] [place] [address], [place] [address] Apr, [facility] [address] [id number] [address] [place] [address], [place] [address] Apr, [facility] [address] [id number] [address] [place] [address], [place] [address] Apr, [facility] [address] [id number] [address] [place] [address], [place] [address] Apr, [facility] [address] [id number] [address] [place] [address], [place] [address] Apr, [facility] [address] [id number] [address] [place] [address], [place] [address] Apr, [facility] [address] [id number] [address] [place] [address], [place] [address] Mar, [facility] [address] [id number] [address] [place] [address], [place] [address] Mar, [facility] [address] [id number] [address] [place] [address], [place] [address] Mar, [facility] [address] [id number] [address] [place] [address], [place] [address] Mar, [facility] [address] [id number] [address] [place] [address], [place] [address] Mar, [facility] [address] [id number] [address] [place] [address], [place] [address] Mar, [facility] [address] [id number] [address] [place] [address], [place] [address] Mar, [facility] [address] [id number] [address] [place] [address], [place] [address] Mar, [facility] [address] [id number] [address] [place] [address], [place] [address] Mar, [facility] [address] [id number] [address] [place] [address], [place] [address] Mar, [facility] [address] [id number] [address] [place] [address], [place] [address] Mar, [facility] [address] [id number] [address] [place] [address], [place] [address] Mar, [facility] [address] [id number] [facility] [address] Mar, 2013 [facility] [address] [id number] [facility] [address] Mar, 2013 [facility] [address] [id number] [facility] [address] Mar, 2013 [facility] [address] [id number] [facility] [address] Mar, 2013 [facility] [address] [id number] [facility] [address] Mar, 2013 [facility] [address] [id number] [address] [place] [address], [place] [address] Mar, [facility] [address] [id number] [address] [place] [address], [place] [address] Feb, [facility] [address] [id number] [address] [place] [address], [place] [address] Feb, [facility] [address] [id number] [address] [place] [address], [place] [address] Feb, [facility] [address] [id number] [address] [place] [address], [place] [address] Feb, [facility] [address] [id number] [address] [place] [address], [place] [address] Feb, [facility] [address] [id number] [address] [place] [address], [place] [address] Feb, [facility] [address] [id number] [address] [place] [address], [place] [address] Feb, [facility] [address] [id number] [address] [place] [address], [place] [address] Feb, [facility] [address] [id number] [address] [place] [address], [place] [address] Feb, [facility] [address] [id number] [address] [place] [address], [place] [address] Feb, [facility] [address] [id number] [facility] [address] Feb, [facility] [address] [id number] [facility] [address] Feb, [facility] [address] [id number] [facility] [address] Feb, [facility] [address] [id number] [address] [place] [address], [place] [address] Feb, [facility] [address] [id number] [facility] [address] January, [facility] [address] [id number] [address] [place] [address], [place] [address] January, [facility] [address] [id number] [address] [place] [address], [place] [address] January, [facility] [address] [id number] [address] [place] [address], [place] [address] January, [facility] [address] [id number] [address] [place] [address], [place] [address] January, [facility] [address] [id number] [address] [place] [address], [place] [address] January, [facility] [address] [id number] [address] [place] [address], [place] [address] January, [facility] [address] [id number] [address] [place] [address], [place] [address] January, [facility] [address] [id number] [address] [place] [address], [place] [address] January, [facility] [address] [id number] [address] [place] [address], [place] [address] January, [facility] [address] [id number] [facility] [address] January, [facility] [address] [id number] [facility] [address] January, [facility] [address] [id number] [address] [place] [address], [place] [address] January, [facility] [address] [id number] [address] [place] [address], [place] [address] January, [facility] [address] [id number] [address] [place] [address], [place] [address] Dec, [facility] [address] [id number] [address] [place] [address], [place] [address] Dec, [facility] [address] [id number] [address] [place] [address], [place] [address] Dec, [facility] [address] [id number] [address] [place] [address], [place] [address] Dec, [facility] [address] [id number] [address] [place] [address], [place] [address] Dec, [facility] [address] [id number] [address] [place] [address], [place] [address] Dec, [facility] [address] [id number] [address] [place] [address], [place] [address] Dec, [facility] [address] [id number] [address] [place] [address], [place] [address] Dec, [facility] [address] [id number] [address] [place] [address], [place] [address] Dec, [facility] [address] [id number] [address] [place] [address], [place] [address] Dec, [facility] [address] [id number] [address] [place] [address], [place] [address] Nov, [facility] [address] [id number] [address] [place] [address], [place] [address] Nov, [facility] [address] [id number] [address] [place] [address], [place] [address] Nov, [facility] [address] [id number] [facility] [address] Nov, [facility] [address] [id number] [address] [place] [address], [place] [address] Nov, [facility] [address] [id number] [facility] [address] Nov, [facility] [address] [id number] [address] [place] [address], [place] [address] Nov, [facility] [address] [id number] [address] [place] [address], [place] [address] Nov, [facility] [address] [id number] [address] [place] [address], [place] [address] Nov, [facility] [address] [id number] [address] [place] [address], [place] [address] Nov, [facility] [address] [id number] [address] [place] [address], [place] [address] Oct, [facility] [address] [id number] [address] [place] [address], [place] [address] Oct, [facility] [address] [id number] [address] [place] [address], [place] [address] Oct, [facility] [address] [id number] [address] [place] [address], [place] [address] Oct, [facility] [address] [id number] [address] [place] [address], [place] [address] Oct, [facility] [address] [id number] [address] [place] [address], [place] [address] Oct, [facility] [address] [id number] [address] [place] [address], [place] [address] 14 Oct, 2013 [facility] [address] [id number] [address] [place] [address], [place] [address] Oct, [facility] [address] [id number] [address] [place] [address], [place] [address] 05 Oct, 2013 [facility] [address] [id number] [address] [place] [address], [place] [address] Oct, [facility] [address] [id number] [address] [place] [address], [place] [address] Oct, [facility] [address] [id number] [address] [place] [address], [place] [address] Oct, [facility] [address] [id number] [address] [place] [address], [place] [address] Oct, [facility] [address] [id number] [address] [place] [address], [place] [address] Oct, [facility] [address] [id number] [address] [place] [address], [place] [address] Sep, [facility] [address] [id number] [address] [place] [address], [place] [address] Sep, [facility] [address] [id number] [address] [place] [address], [place] [address] Sep, [facility] [address] [id number] [address] [place] [address], [place] [address] Sep, [facility] [address] [id number] [address] [place] [address], [place] [address] Sep, [facility] [address] [id number] [address] [place] [address], [place] [address] Sep, [facility] [address] [id number] [address] [place] [address], [place] [address] Sep, [facility] [address] [id number] [address] [place] [address], [place] [address] Sep, [facility] [address] [id number] [address] [place] [address], [place] [address] Sep, [facility] [address] [id number] [address] [place] [address], [place] [address] Sep, [facility] [address] [id number] [address] [place] [address], [place] [address] Aug, [facility] [address] [id number] [address] [place] [address], [place] [address] Aug, [facility] [address] [id number] [address] [place] [address], [place] [address] Jul, [facility] [address] [id number] [address] [place] [address], [place] [address] Jul, [facility] [address] [id number] [address] [place] [address], [place] [address] Jul, [facility] [address] [id number] [address] [place] [address], [place] [address] Jul, [facility] [address] [id number] [address] [place] [address], [place] [address] Jul, [facility] [address] [id number] [address] [place] [address], [place] [address] Jul, [facility] [address] [id number] [address] [place] [address], [place] [address] Jul, [facility] [address] [id number] [address] [place] [address], [place] [address] Jul, [facility] [address] [id number] [address] [place] [address], [place] [address] Jul, [facility] [address] [id number] [address] [place] [address] Jul, [facility] [address] [id number] [address] [place] [address], [place] [address] Jul, [facility] [address] [id number] [address] [place] [address], [place] [address] Jul, [facility] [address] [id number] [address] [place] [address], [place] [address] Jul, [facility] [address] [id number] [address] [place] [address], [place] [address] 05 Jul, 2012 [facility] [address] [id number] [address] [place] [address], [place] [address] Jul, 2012 [facility] [address] [id number] [address] [place] [address], [place] [address] Jul, 2012 [facility] [address] [id number] [address] [place] [address], [place] [address] Jul, 2012 [facility] [address] [id number] [address] [place] [address], [place] [address] Jul, 2012 [facility] [address] [id number] [address] [place] [address], [place] [address] Jul, 2012 [facility] [address] [id number] [address] [place] [address], [place] [address] Jun, 2012 [facility] [address] [id number] [address] [place] [address], [place] [address] 16 Jun, 2012 [facility] [address] [id number] [address] [place] [address], [place] [address] Jun, 2012 [facility] [address] [id number] [address] [place] [address], [place] [address] Jun, 2012 [facility] [address] [id number] [address] [place] [address], [place] [address] 16 Jun, 2012 [facility] [address] [id number] [address] [place] [address], [place] [address] 16 Jun, 2012 [facility] [address] [id number] [address] [place] [address] 10 Jun, 2012 [facility] [address] [id number] [address] [place] [address], [place] [address] 10 Jun, 2012 [facility] [address] [id number] [address] [place] [address], [place] [address] 09 Jun, 2012 [facility] [address] [id number] [address] [place] [id number] 09 Jun2012 [facility] [address] [id number] [address] [place] [address], [place] [address] Jun, [facility] [address] [id number] [address] [place] [address], [place] [address] May, 2012 [facility] [address] [id number] [address] [place] [address], [place] [address] 25 May, 2012 [facility] [address] [id number] [address] [place] [address], [place] [address] 19 May, 2012 [facility] [address] [id number] [address] [place] [address], [place] [address] 17 May, 2012 [facility] [address] [id number] [address] [place] [address], [place] [address] May, [facility] [address] [id number] [address] [place] [address], [place] [address] May, [facility] [address] [id number] [address] [place] [address], [place] [address] May, [facility] [address] [id number] [address] [place] [address], [place] [address] May, [facility] [address] [id number] [address] [place] [address], [place] [address] Apr, [facility] [address] [id number] [address] [place] [address], [place] [address] Apr, [facility] [address] [id number] [address] [place] [address], [place] [address] Apr, [facility] [address] [id number] [address] [place] [address], [place] [address] Apr, [facility] [address] [id number] [address] [place] [address], [place] [address] Apr, [facility] [address] [id number] [address] [place] [address], [place] [address] Mar, [facility] [facility] [address] [id number] [address] [place] [address], [place] [address] Mar, [facility] [address] [id number] [address] [place] [address], [place] [address] Mar, [facility] [address] [id number] [address] [place] [address], [place] [address] Mar, [facility] [address] [id number] [address] [place] [address], [place] [address] Mar, [facility] [address] [id number] [address] [place] [address], [place] [address] Mar, [facility] [address] [id number] [address] [place] [address], [place] [address] Mar, [facility] [address] [id number] [address] [place] [address], [place] [address] Mar, [facility] [address] [id number] [address] [place] [address], [place] [address] Feb, [facility] [address] [id number] [address] [place] [address], [place] [address] Feb, [facility] [place] [address] [id number] [address] [place] [address], [place] [address] January, [facility] [address] [id number] [address] [place] [address], [place] [address] January, [facility] [place] [address] [id number] [address] [place] [address], [place] [address] Dec, [facility] [address] [id number] [address] [place] [address], [place] [address] Dec, [facility] [address] [id number] [address] [place] [address], [place] [address] Nov, [facility] [address] [id number] [address] [place] [address], [place] [address] Nov, [facility] [address] [id number] [address] [place] [address], [place] [address] Nov, [facility] [address] [id number] [address] [place] [address], [place] [address] 14 Nov, 2012 [facility] [address] [id number] [address] [place] [address], [place] [address] Oct, [facility] [address] [id number] [address] [place] [address], [place] [address] Oct, [facility] [address] [id number] [address] [place] [address], [place] [address] Oct, [facility] [address] [id number] [address] [place] [address], [place] [address] Oct, [facility] [address] [id number] [address] [place] [address], [place] [address] 16 Oct, 2012 [facility] [address] [id number] [address] [place] [address], [place] [address] 14 Oct, 2012 [facility] [address] [id number] [address] [place] [address], [place] [address] 08 Oct, 2012 [facility] [address] [id number] [address] [place] [address], [place] [address] 07 Oct, 2012 [facility] [address] [id number] [address] [place] [address], [place] [address] 03 Oct, 2012 [facility] [address] [id number] [address] [place] [address], [place] [address] 30 Sep, 2012 [facility] [address] [id number] [address] [place] [address], [place] [address] Sep, [facility] [address] [id number] [address] [place] [address], [place] [address] Sep, [facility] [address] [id number] [address] [place] [address], [place] [address] Sep, [facility] [address] [id number] [address] [place] [address], [place] [address] 17 Sep, 2012 [facility] [address] [id number] [address] [place] [address], [place] [address] Sep, [facility] [address] [id number] [address] [place] [address], [place] [address] Sep, [facility] [address] [id number] [address] [place] [address], [place] [address] Sep, [facility] [address] [id number] [address] [place] [address], [place] [address] Aug, [facility] [address] [id number] [address] [place] [address], [place] [address] Aug, [facility] [address] [id number] [address] [place] [address], [place] [address] Aug, [facility] [address] [id number] [address] [place] [address], [place] [address] Aug, [facility] [address] [id number] [address] [place] [address], [place] [address] Aug, [facility] [address] [id number] [address] [place] [address], [place] [address] Aug, [facility] [address] [id number] [address] [place] [address], [place] [address] Aug, [facility] [address] [id number] [address] [place] [address], [place] [address] Aug, [facility] [address] [id number] [address] [place] [address], [place] [address] Jul, [facility] [address] [id number] [address] [place] [address], [place] [address] Jul, [facility] [address] [id number] [address] [place] [address], [place] [address] Jul, [facility] [address] [id number] [address] [place] [address], [place] [address] Jul, [facility] [address] [id number] [address] [place] [address], [place] [address] Jul, [facility] [address] [id number] [address] [place] [address], [place] [address] Jul, [facility] [address] [id number] [address] [place] [address], [place] [address] Jun, [facility] [address] [id number] [address] [place] [address], [place] [address] Jun, [facility] [address] [id number] [address] [place] [address], [place] [address] Jun, [facility] [address] [id number] [address] [place] [address], [place] [address] Jun, [facility] [address] [id number] [address] [place] [address], [place] [address] Jun, [facility] [address] [id number] [address] [place] [address], [place] [address] Jun, [facility] [address] [id number] [address] [place] [address], [place] [address] Jun, [facility] [address] [id number] [address] [place] [address], [place] [address] Jun, [facility] [address] [id number] [address] [place] [address], [place] [address] 10 Jun, 2012 [facility] [address] [id number] [address] [place] [address], [place] [address] 26 May, 2012 [facility] [address] [id number] [address] [place] [address], [place] [address] 24 May, 2012 [facility] [address] [id number] [address] [place] [address], [place] [address] 18 May, 2012 [facility] [address] [id number] [address] [place] [address], [place] [address] 30 Apr, 2012 [facility] [address] [id number] [address] [place] [address], [place] [address] Apr, [facility] [address] [id number] [address] [place] [address], [place] [address] Apr, [facility] [address] [id number] [address] [place] [address], [place] [address] Apr, [facility] [address] [id number] [address] [place] [address], [place] [address] Apr, [facility] [address] [id number] [address] [place] [address], [place] [address] Apr, [facility] [address] [id number] [address] [place] [address], [place] [address] Mar, [facility] [address] [id number] [address] [place] [address], [place] [address] Mar, [facility] [address] [id number] [address] [place] [address], [place] [address] Mar, [facility] [address] [id number] [address] [place] [address], [place] [address] Mar, [facility] [address] [id number] [address] [place] [address], [place] [address] Feb, [facility] [address] [id number] [address] [place] [address], [place] [address] Feb, [facility] [address] [id number] [address] [place] [address], [place] [address] Feb, [facility] [address] [id number] [address] [place] [address], [place] [address] Feb, [facility] [address] [id number] [address] [place] [address], [place] [address] Feb, [facility] [address] [id number] [address] [place] [address], [place] [address] January, [facility] [address] [id number] [address] [place] [address], [place] [address] January, [facility] [address] [id number] [address] [place] [address], [place] [address] January, [facility] [address] [id number] [address] [place] [address], [place] [address] January, [facility] [address] [id number] [address] [place] [address], [place] [address] January, [facility] [address] [id number] [address] [place] [address], [place] [address] January, [facility] [address] [id number] [address] [place] [address], [place] [address] Dec, [facility] [address] [id number] [address] [place] [address], [place] [address] Dec, [facility] [address] [id number] [address] [place] [address], [place] [address] Dec, [facility] [address] [id number] [address] [place] [address], [place] [address] Dec, [facility] [address] [id number] [address] [place] [address], [place] [address] Dec, [facility] [address] [id number] [address] [place] [address], [place] [address] Nov, [facility] [address] [id number] [address] [place] [address], [place] [address] Nov, [facility] [address] [id number] [address] [place] [address], [place] [address] Nov, [facility] [address] [id number] [address] [place] [address], [place] [address] Nov, [facility] [address] [id number] [address] [place] [address], [place] [address] Oct, [facility] [address] [id number] [address] [place] [address], [place] [address] Oct, [facility] [address] [id number] [address] [place] [address], [place] [address] 24 Oct, 2011 [facility] [address] [id number] [address] [place] [address], [place] [address] 13 Oct, 2011 [facility] [address] [id number] [address] [place] [address], [place] [address] Oct, [facility] [address] [id number] [address] [place] [address], [place] [address] Sep, [facility] [address] [id number] [address] [place] [address], [place] [address] Sep, [facility] [address] [id number] [address] [place] [address], [place] [address] Sep, [facility] [address] [id number] [address] [place] [address], [place] [address] Sep, [facility] [address] [id number] [address] [place] [address], [place] [address] Sep, [facility] [address] [id number] [address] [place] [address], [place] [address] Sep, [facility] [place] [address] [id number] [address] [place] [address], [place] [address] Aug, [facility] [address] [id number] [address] [place] [address], [place] [address] Aug, [facility] [address] [id number] [address] [place] [address], [place] [address] Aug, [facility] [address] [id number] [address] [place] [address], [place] [address] Jul, [facility] [address] [id number] [address] [place] [address], [place] [address] Jul, [facility] [address] [id number] [address] [place] [address], [place] [address] Jul, [facility] [address] [id number] [address] [place] [address], [place] [address] Jul, [facility] [address] [id number] [address] [place] [address], [place] [address] Jun, [facility] [address] [id number] [address] [place] [address], [place] [address] 31 Jun, 2011 [facility] [address] [id number] [address] [place] [address], [place] [address] 18 Jun, 2011 [facility] [address] [id number] [address] [place] [address], [place] [address] 10 Jun, 2011 [facility] [address] [id number] [address] [place] [address], [place] [address] 10 Jun, 2011 [facility] [address] [id number] [address] [place] [address], [place] [address] 10 Jun, 2011 [facility] [address] [id number] [address] [place] [address], [place] [address] 11 Mar, 2011 [facility] [address] [id number] [address] [place] [address], [place] [address] 18 Dec, 2010 [facility] [address] [id number] [address] [place] [address], [place] [address] 11 Dec, 2010 [facility] [address] [id number] [address] [place] [address], [place] [address] 18 Nov, 2010 [facility] [address] [id number] [address] [place] [address], [place] [address] 16 Nov, 2010 [facility] [address] [id number] [address] [place] [address], [place] [address] Sep, [facility] [address] [id number] [address] [place] [address], [place] [address] 31 Aug, 2010 [facility] [address] [id number] [address] [place] [address], [place] [address] Aug, [facility] [address] [id number] [address] [place] [address], [place] [address] Aug, [facility] [address] [id number] [address] [place] [address], [place] [address] Aug, [facility] [address] [id number] [address] [place] [address], [place] [address] Aug, [facility] [address] [id number] [address] [place] [address], [place] [address] 14 Aug, 2010 [facility] [address] [id number] [address] [place] [address], [place] [address] 08 Aug, 2010 [facility] [address] [id number] [address] [place] [address], [place] [address] 08 Aug, 2010 [facility] [address] [id number] [address] [place] [address], [place] [address] 07 Aug, 2010 [facility] [address] [id number] [address] [place] [address], [place] [address] 06 Aug, 2010 [facility] [address] [id number] [address] [place] [address], [place] [address] Aug, [facility] [address] [id number] [address] [place] [address], [place] [address] Aug, [facility] [address] [id number] [address] [place] [address], [place] [address] Jul, [facility] [address] [id number] [address] [place] [address], [place] [address] 30 Jul, 2010 [facility] [address] [id number] [address] [place] [address], [place] [address] Jul, [facility] [address] [id number] [address] [place] [address], [place] [address] 17 Jul, 2010 [facility] [address] [id number] [address] [place] [address], [place] [address] Jul, [facility] [address] [id number] [address] [place] [address], [place] [address] Jul, [facility] [address] [id number] [address] [place] [address], [place] [address] Jun, [facility] [address] [id number] [address] [place] [address], [place] [address] Jun, [facility] [address] [id number] [address] [place] [address], [place] [address] Jun, [facility] [address] [id number] [address] [place] [address], [place] [address] 13 Jun, 2010 [facility] [address] [id number] [address] [place] [address], [place] [address] 16 Apr, 2010 [facility] [address] [id number] [address] [place] [address], [place] [address] Mar, [facility] [address] [id number] [address] [place] [address], [place] [address] Feb, [facility] [address] [id number] [address] [place] [address], [place] [address] January, [facility] [address] [id number] [address] [place] [address], [place] [address] 15 Dec, 2009 [facility] [address] [id number] [address] [place] [address], [place] [address] Nov, [facility] [address] [id number] [address] [place] [address] Aug, [facility] [address] [id number] [address] [place] [address], [place] [address] Aug, [facility] [address] [id number] [address] [place] [id number] Aug, [facility] [address] [id number] [address] [place] [address] Jul, [facility] [address] [id number] [address] [place] [address] Jul, [facility] [address] [id number] [address] [place] [id number] Jul, [facility] [address] [id number] [address] [place] [address] 30 Jun, 2009 [facility] [address] [id number] [address] [place] [id number] 29 Jun, 2009 [facility] [address] [id number] [address] [place] [address] Jun, [facility] [address] [facility] [id number] [address] [place] [id number] Jun, [facility] [address] [facility] [id number] [address] [place] [id number] Jun, [facility] [address] [facility] [id number] [address] [place] [id number] Jun, [facility] [address] [facility] [id number] [address] [place] [id number] Apr, [facility] [address] [facility] [id number] [address] [place] [id number] Apr, [facility] [address] [facility] [id number] [address] [place] [id number] Feb, [facility] [address] [facility] [id number] [address] [place] [phone] January, [facility] [address] [facility] [id number] [address] [place] [id number] Dec, IMMUNIZATIONS No Known Immunizations SOCIAL HISTORY Never Assessed REASON FOR VISIT PLAN OF CARE VITAL SIGNS Height 67 in 2014-08-04 Weight 332.31 lbs 2014-08-04 Temperature 97.4 degrees Fahrenheit 2014-08-04 Heart Rate 94 bpm 2014-08-04 Respiratory Rate 22 2014-08-04 Blood pressure systolic 162 mmHg 2014-08-04 Blood pressure diastolic 84 mmHg 2014-08-04 MEDICATIONS Unknown Medications RESULTS No Results PROCEDURES Procedure Date Ordered Result Body Site GLYCATED HEMOGLOBIN TEST Aug 04, 2014 INSTRUCTIONS MEDICATIONS ADMINISTERED No Known [...] colonoscopy 2009 ([facility]), 2013 ([place] ) Surgical History heart cath: CAD w/ [...] History inability to urinate 09/16/15 Hospitalization History [facility] 2000's Hospitalization History hyperkalemia 10/2017 Hospitalization History fluid in lung
[2020-03-01 17:23] LABS: BILIRUBIN,TOTAL 0.3 MG/DL (0.1-1.0)
--- OUTSIDE RECORDS SUMMARY | 2020-03-01 17:23 | XMS REPORT ---
Author Author Michele WASHBURN Organization [facility] Address [address] [place] [address] Care Team Providers Care Coil Taper Name Role Phone NOEMI WASHBURN Unavailable PROBLEMS Type Condition ICD9-CM Code ZDJ85-NM Code Onset Dates Condition S tatus SNOMED Code Problem Cough R05 Active 90317528 Problem Benign prostatic hyperplasia with lower urinary tract symptoms, unspecified morphology N40.1 Active 71318 6007 Problem Eustachian tube dysfunction, unspecified laterality H69.80 Active 91765969 Problem Chronic pain G89.29 Active 7974530 1 Problem DM neuro manif type II E11.49 Active 74870074 Problem Diabetes E11.9 Active 21075754 Problem Leukocytosis D72.829 Active 1625493 06 Problem Falling R29.6 Active 702022748 Problem Pressure ulcer of other site, stage 3 L89.893 Active 310236903 Problem 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 Active 999742653 Problem Eye exam abnormal R93.8 Active 16 9044665 Problem Dysuria R30.0 Active 12108858 Problem Hypokalemia E87.6 Active 75716175 Problem Morbid obesity E66.01 Active 32626 6002 Problem Anxiety F41.9 Active 02907740 Problem Diabetic polyneuropathy associated with type 2 d iabetes mellitus E11.42 Active 11931868 Problem Essential hypertension I10 Active 64692312 Problem Bilateral primary osteoarthritis of knee M17.0 Active 088336744 Problem Polyneuropathy associated with underlying disease G63 Active 072055637 Problem Anemia of chronic illness D63.8 Acti ve 742172365 Problem Lymphocytosis D72.820 Active 636454 09 Problem Retinal edema H35.81 Active 405667 6 Problem Chronic lymphocytic leukemia C91.10 A ctive 34440646 Problem Bipolar disorder, in partial remission, most rec ent episode depressed F31.75 Active 64184285 Problem Pure hypercholesterolemia E78.00 Acti ve 334453307 Problem Primary osteoarthritis of right knee M17.11 Active 894075154018839 Problem Bipolar disorder F31.9 Active 137 03639 Problem Bipolar I disorder, most recent episode (or curr ent) mixed, moderate F31.62 Active 07042599 Problem Chronic diastolic (congestive) heart failure I50.3 2 Active 516010360 Problem Reactive airway disease J45.909 Active 344960441612 Problem Insomnia, unspecified type G47.00 Act sharon 402499769 Problem Other chronic pain G89.29 Active 8 7875749 Problem Other iron deficiency anemia D50.8 A ctive 61267773 Problem Mild cognitive impairment G31.84 Acti ve 553812232 Problem Skin cancer C44.90 Active 57460982 7 ALLERGIES No Information ENCOUNTERS Encounter Location Date Diagnosis [place] [address] [facility] [id number] [address] [place] [address] Apr, Chronic pain G89.29 and Bipo lar disorder F31.9 [place] [address] [place] [id number] [address] [place] [phone] Mar, Bipolar disorder F31.9 and C hronic pain G89.29 [facility] [address] [facility] [id number] [address] [place] [phone] Feb, Bipolar disorder F31.9 [facility] [address] [facility] [id number] [address] [place] [id number] Feb, Cellulitis of right upper ex tremity L03.113 and Skin abrasion T14.8XXA [facility] [address] [facility] [id number] [address] [place] [address] Feb, Bipolar disorder, in partial remission, most recent episode depressed F31.75 and Mild cognitive impairment G31.84 [facility] [address] [facility] [id number] [address] [place] [phone] Feb, Chronic pain G89.29 [facility] [address] [facility] [id number] [address] [place] [address] Feb, Bipolar disorder, in partial remission, most recent episode depressed F31.75 and Mild cognitive impairment G31.84 [facility] [address] [id number] [address] [place] [phone] January, Bipolar disorder, in partial remission, most recent episode depressed F31.75 and Mild cognitive impairment G31.84 [facility] [address] [id number] [address] [place] [phone] January, Chronic pain G89.29 and Bipo lar disorder F31.9 [facility] [address] [id number] [address] [place] [id number] January, Bipolar disorder, in partial remission, most recent episode depressed F31.75 and Mild cognitive impairment G31.84 [facility] [address] [id number] [address] [place] [address] Dec, [facility] [address] [id number] [address] [place] [address] Dec, Chronic pain G89.29 and Bipo lar disorder F31.9 [facility] [address] [id number] [address] [place] [phone] Dec, Edema of both lower extremit ies R60.0 [facility] [address] [id number] [address] [place] [id number] Dec, Bipolar disorder F31.9 [facility] [address] [id number] [address] [place] [phone] Dec, Bipolar disorder, in partial remission, most recent episode depressed F31.75 and Mild cognitive impairment G31.84 [facility] [address] [id number] [address] [place] [phone] Nov, [facility] [address] [id number] [address] [place] [phone] Nov, Chronic pain G89.29 [facility] [address] [id number] [address] [place] [id number] Nov, Bipolar disorder, in partial remission, most recent episode depressed F31.75 and Mild cognitive impairment G31.84 [place] [address] [place] [id number] [address] [place] [phone] Nov, Bipolar disorder F31.[address] [id number] 04 Nov, 2018 Encounter for Medicare jordan[place]a [...] N40.1 and Essential hypertension I10 [place] [id number] [address] [place] [address] 21 Oct, 2018 Chronic pain G89.29 [place] [address] [place] [id number] [address] [place] [id number] 18 Oct, 2018 Diabetes E11.9 [place] [address] [address] 11 Oct, 2018 Bipolar I disorder, most rec ent episode (or current) mixed, moderate F31.62 and Mild cognitive impairment G31.84 [place] [address] [place] [id number] [address] [place] [id number] Oct, Bipolar I disorder, most rec ent episode (or current) mixed, moderate F31.62 and Mild cognitive impairment G31.84 [place] [address] [place] [id number] [address] [place] [phone] Sep, Bipolar I disorder, most rec ent episode (or current) mixed, moderate F31.62 and Mild cognitive impairment G31.84 [place] [address] [place] [id number] [address] [place] [phone] Sep, [place] [id number] [address] [place] [address] Sep, Diabetes E11.9 ; Hypoxia R09 .02 ; Hyperglycemia R73.9 ; Therapeutic drug monitoring Z51.81 ; BMI 50.0-59.9, adult Z68.43 and Skin cancer C44.90 [facility] [address] [facility] [id number] [address] [place] [phone] Sep, Chronic pain G89.29 [facility] [address] [facility] [id number] [address] [place] [phone] Sep, Bipolar I disorder, most rec ent episode (or current) mixed, moderate F31.62 [place] [address] [facility] [id number] [address] [place] [phone] Sep, [place] [address] [place] [id number] [address] [place] [phone] Sep, [place] [address] [place] [id number] [address] [place] [phone] Aug, Chronic pain G89.29 [facility] [address] [facility] [id number] [address] [place] [phone] Aug, Bipolar I disorder, most rec ent episode (or current) mixed, moderate F31.62 [place] [address] [place] [id number] [address] [place] [phone] Aug, Bipolar I disorder, most rec ent episode (or current) mixed, moderate F31.62 and Mild cognitive impairment G31.84 [place] [address] [facility] [id number] [address] [place] [phone] Jul, [facility] [address] [facility] [id number] [address] [place] [phone] Jul, Chronic pain G89.29 [facility] [address] [facility] [id number] [address] [place] [address] Jul, Bipolar I disorder, most rec ent episode (or current) mixed, moderate F31.62 and Mild cognitive impairment G31.84 [place] [address] [facility] [id number] [address] [place] [phone] Jul, Bipolar I disorder, most rec ent episode (or current) mixed, moderate F31.62 and MCI (mild cognitive impairment) G31.84 [facility] [address] [facility] [id number] [address] [place] [phone] Jul, [facility] [address] [facility] [id number] [address] [place] [phone] Jul, [facility] [address] [facility] [id number] [address] [place] [address] Jul, Bipolar I disorder, most rec ent episode (or current) mixed, moderate F31.62 [place] [address] [facility] [id number] [address] [place] [address] Jul, Chronic pain G89.29 [place] [address] [facility] [id number] [address] [place] [phone] Jun, Bipolar I disorder, most rec ent episode (or current) mixed, moderate F31.62 [place] [address] [facility] [id number] [address] [place] [address] Jun, Pre-procedure lab exam Z01.8 12 [place] [address] [place] [id number] [address] [place] [id number] Jun, [facility] [address] [place] [id number] [place] [id number] Jun, [facility] [address] [place] [id number] [address] [place] [phone] Jun, [place] [address] [facility] [id number] [address] [place] [phone] Jun, Forgetfulness R68.89 ; Pre-s yncope R55 ; Localized edema R60.0 ; Other iron deficiency anemia D50.8 and BMI 50.0-59.9, adult Z68.43 [place] [address] [place] [id number] [address] [place] [address] Jun, Chronic pain G89.29 [facility] [address] [place] [id number] [address] [place] [phone] 05 Jun, 2018 Chronic pain G89.29 [facility] [address] [facility] [id number] [address] [place] [phone] Jun, Bipolar I disorder, most rec ent episode (or current) mixed, moderate F31.62 [place] [address] [place] [id number] [address] [place] [phone] May, Chronic pain G89.29 [place] [address] [place] [id number] [address] [place] [id number] Apr, [place] [address] [place] [id number] [place] [address] Apr, Chronic pain G89.29 [place] [address] [address] Apr, [facility] M17.11 [place] [address] [place] [id number] [address] [place] [phone] Mar, [place] [address] [place] [id number] [place] [address] Mar, BMI 50.0-59.9, adult Z68.43 and Bipolar disorder, in partial remission, most recent episode depressed F31.75 [place] [address] [place] [id number] [place] [address] Mar, Diabetes E11.9 ; Pure hyperc holesterolemia E78.00 ; Essential hypertension I10 ; Nausea with vomiting, unspecified R11.2 and Headache, unspecified headache type R51 [place] [address] [place] [id number] [address] [place] [address] Mar, Bipolar I disorder, most rec ent episode (or current) mixed, moderate F31.62 [place] [address] [place] [id number] [address] [place] [id number] Mar, Bipolar I disorder, most rec ent episode (or current) mixed, moderate F31.62 [facility] [address] [id number] [address] [place] [phone] Mar, Chronic pain G89.29 [facility] [address] [id number] [address] [place] [address] Mar, Bipolar I disorder, most rec ent episode (or current) mixed, moderate F31.62 [facility] [address] [id number] [address] [place] [address] Feb, Bipolar I disorder, most rec ent episode (or current) mixed, moderate F31.62 [place] [address] [id number] [address] [place] [id number] 14 Feb, 2018 Chronic pain G89.29 [facility] [address] [id number] [address] [place] [phone] Feb, Decubitus ulcer of right josselin t, stage 3 L89.893 and BMI 50.0-59.9, adult Z68.43 [facility] [address] [id number] [address] [place] [phone] Feb, Bipolar I disorder, most rec ent episode (or current) mixed, moderate F31.62 [facility] [address] [id number] [address] [place] [phone] Feb, [facility] [address] [id number] [address] [place] [phone] January, [facility] [address] [id number] [address] [place] [phone] January, Chronic pain G89.29 [facility] [address] [id number] [address] [place] [phone] January, Bipolar I disorder, most rec ent episode (or current) mixed, moderate F31.62 [facility] [address] [facility] [id number] [address] [place] [phone] January, Bipolar I disorder, most rec ent episode (or current) mixed, moderate F31.62 [facility] [address] [facility] [id number] [address] [place] [phone] Dec, Bipolar I disorder, most rec ent episode (or current) mixed, moderate F31.62 and BMI 50.0-59.9, adult Z68.43 [facility] [address] [facility] [id number] [address] [place] [address] Dec, Bipolar I disorder, most rec ent episode (or current) mixed, moderate F31.62 [place] [address] [facility] [id number] [address] [place] [phone] Dec, Chronic pain G89.29 [place] [address] [place] [id number] [address] [place] [phone] Dec, DM neuro manif type II E11.4 9 ; Right flank pain R10.9 ; 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 ; Encounter for medication monitoring Z51.81 and BMI 50.0-59.9, adult Z68.43 [place] [address] [place] [id number] [address] [place] [id number] Dec, Bipolar I disorder, most rec ent episode (or current) mixed, moderate F31.62 [place] [address] [place] [id number] [address] [place] [phone] Nov, Bipolar I disorder, most rec ent episode (or current) mixed, moderate F31.62 [place] [address] [place] [id number] [address] [place] [id number] Nov, Chronic pain G89.29 [place] [address] [facility] [id number] [address] [place] [phone] Nov, Bipolar I disorder, most rec ent episode (or current) mixed, moderate F31.62 [place] [address] [facility] [id number] [address] [place] [address] Nov, Hypokalemia E87.6 [place] [address] [address] Nov, Bipolar I disorder, most rec ent episode (or current) mixed, moderate F31.62 [place] [address] [address] Oct, Chronic pain G89.29 [place] [address] [address] Oct, BMI 50.0-59.9, adult Z68.43 and Bipolar I disorder, most recent episode (or current) mixed, moderate F31.62 [place] [address] [address] Oct, Bipolar I disorder, most rec ent episode (or current) mixed, moderate F31.62 [place] [address] [address] Oct, [place] [address] [address] Oct, Hypokalemia E87.6 [place] [address] [address] Oct, DM neuro manif type II E11.4 9 [place] [address] [address] Oct, Bipolar I disorder, most rec ent episode (or current) mixed, moderate F31.62 [place] [address] [address] Oct, Bipolar I disorder, most rec ent episode (or current) mixed, moderate F31.62 [place] [address] [address] 14 Oct, 2017 Hyperkalemia E87.5 ; Falling R29.6 ; BMI 50.0-59.9, adult Z68.43 and Acute left ankle pain M25.572 [place] [address] [address] 08 Oct, 2017 DM neuro manif type II E11.4 9 [place] [address] [address] Oct, [place] [address] [address] Sep, Chronic pain G89.29 [place] [address] [address] Sep, [place] [address] [address] Sep, Bilateral primary osteoarthr itis of knee M17.0 [place] [address] [address] Sep, Generalized edema R60.[address] [id number] 16 Sep, 2017 Bipolar I disorder, most rec ent episode (or current) mixed, moderate F31.[address] [address] 15 Sep, 2017 Hypoxia R09.02 ; Other hyper volemia E87.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 ; Anemia of chronic illness D63.8 and BMI 50.0- 59.9, adult Z68.43 [place] [address] [address] Sep, [address] [address] Sep, Bipolar I disorder, most rec ent episode (or current) mixed, moderate F31.62 [place] [address] [address] Aug, Chronic pain G89.29 [place] [address] [place] [id number] [address] [place] [address] Aug, Generalized edema R60.1 [facility] [address] [facility] [id number] [address] [place] [address] Aug, [facility] [address] [facility] [id number] [address] [place] [phone] Aug, [facility] [address] [place] [id number] [address] [place] [address] Aug, Bipolar I disorder, most rec ent episode (or current) mixed, moderate F31.62 [facility] [address] [place] [id number] [address] [place] [phone] Aug, Bipolar I disorder, most rec ent episode (or current) mixed, moderate F31.62 [place] [address] [place] [id number] [address] [place] [address] Aug, Chronic pain G89.29 [facility] [address] [place] [id number] [address] [place] [phone] Jul, Bipolar I disorder, most rec ent episode (or current) mixed, moderate F31.62 [facility] [address] [place] [id number] [address] [place] [address] Jul, Bipolar I disorder, most rec ent episode (or current) mixed, moderate F31.62 and BMI 60.0-69.9, adult Z68.44 [facility] [address] [place] [id number] [address] [place] [address] Jul, Bipolar I disorder, most rec ent episode (or current) mixed, moderate F31.62 [facility] [address] [place] [id number] [address] [place] [address] Jul, Chronic pain G89.29 [facility] [address] [place] [id number] [address] [place] [phone] 02 Jul, 2017 Bipolar I disorder, most rec ent episode (or current) mixed, moderate F31.62 [facility] [address] [place] [id number] [address] [place] [address] Jun, Polyneuropathy associated wi th underlying disease G63 and Diabetes E11.9 [facility] [address] [facility] [id number] [address] [place] [phone] 16 Jun, 2017 Bipolar I disorder, most rec ent episode (or current) mixed, moderate F31.62 [facility] [address] [place] [id number] [address] [place] [address] 09 Jun, 2017 Chronic pain G89.29 [facility] [address] [place] [id number] [address] [place] [phone] May, Bipolar I disorder, most rec ent episode (or current) mixed, moderate F31.62 [facility] [address] [place] [id number] [address] [place] [address] May, Bipolar I disorder, most rec ent episode (or current) mixed, moderate F31.62 [facility] [address] [place] [id number] [address] [place] [phone] May, Diabetic polyneuropathy asso ciated with type 2 diabetes mellitus E11.42 [facility] [address] [place] [id number] [address] [place] [id number] 18 May, 2017 Bipolar I disorder, most rec ent episode (or current) mixed, moderate F31.62 [facility] [address] [place] [id number] [address] [place] [address] May, Bipolar I disorder, most rec ent episode (or current) mixed, moderate F31.62 [facility] [address] [facility] [id number] [address] [place] [address] May, Chronic pain G89.29 [facility] [address] [place] [id number] [address] [place] [address] Apr, Bipolar I disorder, most rec ent episode (or current) mixed, moderate F31.62 [facility] [address] [place] [id number] [address] [place] [address] Apr, [facility] [address] [id number] [address] [place] [address] Apr, Chronic pain G89.29 and DM n euro manif type II E11.49 [facility] [address] [id number] [address] [place] [id number] Apr, [facility] [address] [id number] [address] [place] [phone] Apr, Bipolar I disorder, most rec ent episode (or current) mixed, moderate F31.62 [facility] [address] [id number] [address] [place] [phone] Apr, Chronic pain G89.29 [facility] [address] [id number] [address] [place] [id number] Apr, Iliotibial band syndrome, le ft M76.32 [facility] [address] [id number] [address] [place] [id number] Apr, Bipolar I disorder, most rec ent episode (or current) mixed, moderate F31.62 [facility] [address] [id number] [address] [place] [phone] Mar, Bipolar I disorder, most rec ent episode (or current) mixed, moderate F31.62 [facility] [address] [id number] [address] [place] [id number] Mar, Bipolar I disorder, most rec ent episode (or current) mixed, moderate F31.62 [facility] [address] [id number] [address] [place] [phone] Mar, [facility] [address] [id number] [address] [place] [phone] Mar, Bipolar I disorder, most rec ent episode (or current) mixed, moderate F31.62 [facility] [address] [id number] [address] [place] [id number] Mar, Chronic pain G89.29 [facility] [address] [id number] [address] [place] [phone] Mar, Bipolar I disorder, most rec ent episode (or current) mixed, moderate F31.62 [facility] [facility] [address] [facility] [id number] [address] [place] [phone] Mar, Bipolar I disorder, most rec ent episode (or current) mixed, moderate F31.62 [facility] [address] [facility] [id number] [address] [place] [phone] Mar, Acute pain of left knee M25. 562 ; Left hip pain M25.552 ; Generalized edema R60.1 and Tongue swelling R22.0 [facility] [address] [facility] [id number] [address] [place] [phone] Mar, [facility] [address] [facility] [id number] [address] [place] [phone] Feb, Chronic pain G89.29 [facility] [address] [place] [id number] [address] [place] [phone] Feb, Diabetes E11.9 [facility] [address] [facility] [id number] [address] [place] [phone] January, Chronic pain G89.29 [facility] [address] [facility] [id number] [address] [place] [phone] January, [facility] [address] [facility] [id number] [address] [place] [phone] January, Bipolar I disorder, most rec ent episode (or current) mixed, moderate F31.62 [facility] [address] [facility] [id number] [address] [place] [phone] Dec, Bipolar I disorder, most rec ent episode (or current) mixed, moderate F31.62 [facility] [address] [facility] [id number] [address] [place] [phone] Dec, Chronic pain G89.29 [facility] [address] [facility] [id number] [address] [place] [phone] Dec, Bipolar I disorder, most rec ent episode (or current) mixed, moderate F31.62 [facility] [address] [id number] [address] [place] [id number] Dec, Diabetes E11.9 ; Essential h ypertension I10 ; Chronic pain G89.29 and Morbid obesity E66.01 [facility] [address] [id number] [address] [place] [id number] Dec, [facility] [address] [id number] [address] [place] [phone] Dec, Bipolar I disorder, most rec ent episode (or current) mixed, moderate F31.62 [facility] [address] [facility] [id number] [address] [place] [id number] Dec, Bipolar I disorder, most rec ent episode (or current) mixed, moderate F31.62 [facility] [address] [facility] [id number] [address] [place] [phone] Nov, Chronic pain G89.29 [facility] [address] [id number] [address] [place] [phone] Nov, Bipolar I disorder, most rec ent episode (or current) mixed, moderate F31.62 [facility] [address] [facility] [id number] [address] [place] [phone] Nov, [facility] [address] [facility] [id number] [address] [place] [phone] Nov, Bipolar I disorder, most rec ent episode (or current) mixed, moderate F31.62 [facility] [address] [id number] [address] [place] [phone] Nov, Bipolar I disorder, most rec ent episode (or current) mixed, moderate F31.62 [facility] [address] [facility] [id number] [address] [place] [id number] Nov, [facility] [address] [facility] [id number] [address] [place] [phone] Nov, [facility] [address] [facility] [id number] [address] [place] [phone] Nov, [facility] [address] [facility] [id number] [address] [place] [phone] Oct, Chronic pain G89.29 [facility] [address] [facility] [id number] [address] [place] [phone] Oct, Bipolar I disorder, most rec ent episode (or current) mixed, moderate F31.62 [facility] [address] [facility] [id number] [address] [place] [phone] Oct, [facility] [address] [facility] [id number] [address] [place] [phone] Oct, Chronic pain G89.29 ; Diabet es E11.9 ; Anxiety F41.9 and 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 [facility] [address] [facility] [id number] [address] [place] [phone] Oct, [facility] [address] [facility] [id number] [address] [place] [phone] Oct, Diabetes E11.9 [facility] [address] [facility] [id number] [address] [place] [id number] Oct, Bipolar I disorder, most rec ent episode (or current) mixed, moderate F31.62 [facility] [address] [facility] [id number] [address] [place] [phone] Sep, Chronic pain G89.29 [facility] [address] [facility] [id number] [address] [place] [phone] Sep, Chronic pain G89.29 [facility] [address] [facility] [id number] [address] [place] [phone] Aug, Chronic pain G89.29 [facility] [address] [facility] [id number] [address] [place] [id number] Jul, [facility] [address] [facility] [id number] [address] [place] [phone] Jul, Diabetes E11.9 [facility] [address] [facility] [id number] [address] [place] [phone] Jul, Chronic pain G89.29 [facility] [address] [facility] [id number] [address] [place] [id number] Jul, Bipolar I disorder, most rec ent episode (or current) mixed, moderate F31.62 [place] [address] [facility] [id number] [address] [place] [phone] Jun, Bipolar I disorder, most rec ent episode (or current) mixed, moderate F31.62 [place] [address] [place] [id number] [address] [place] [phone] Jun, [place] [address] [place] [id number] [address] [place] [phone] Jun, Bipolar I disorder, most rec ent episode (or current) mixed, moderate F31.62 [place] [address] [place] [id number] [address] [place] [phone] May, Insomnia, unspecified type G 47.00 [place] [address] [facility] [id number] [address] [place] [phone] May, Bipolar I disorder, most rec ent episode (or current) mixed, moderate F31.62 [place] [address] [place] [id number] [address] [place] [id number] 14 May, 2016 [place] [address] [facility] [id number] [address] [place] [phone] 08 May, 2016 Bipolar I disorder, most rec ent episode (or current) mixed, moderate F31.62 [place] [address] [facility] [id number] [address] [place] [phone] 06 May, 2016 Diabetes E11.9 and Essential hypertension I10 [place] [address] [facility] [id number] [address] [place] [id number] Apr, Chronic pain G89.29 [facility] [address] [facility] [id number] [address] [place] [phone] Apr, Bipolar I disorder, most rec ent episode (or current) mixed, moderate F31.62 [place] [id number] [facility] [id number] [address] [place] [id number] Apr, [place] [address] [facility] [id number] [address] [place] [phone] Apr, [place] [address] [facility] [id number] [address] [place] [phone] Mar, Chronic pain G89.29 ; Headac he, unspecified headache type R51 ; Neuropathy G62.9 ; Pain of right hip joint M25.551 and Essential hypertension I10 [place] [address] [place] [id number] [address] [place] [phone] Mar, Chronic pain G89.29 [place] [address] [facility] [id number] [address] [place] [id number] Mar, Bipolar I disorder, most rec ent episode (or current) mixed, moderate F31.62 [place] [address] [place] [id number] [address] [place] [phone] Feb, Bipolar I disorder, most rec ent episode (or current) mixed, moderate F31.62 and Insomnia, unspecified type G47.00 [place] [address] [facility] [id number] [address] [place] [phone] Feb, Chronic pain G89.29 [place] [address] [facility] [id number] [address] [place] [phone] Feb, Bipolar I disorder, most rec ent episode (or current) mixed, moderate F31.62 [place] [address] [facility] [id number] [address] [place] [phone] January, Bipolar I disorder, most rec ent episode (or current) mixed, moderate F31.62 [place] [address] [place] [id number] [address] [place] [phone] January, Chronic pain G89.29 [facility] [address] [id number] [address] [place] [phone] January, Chronic pain G89.29 and Esse ntial hypertension I10 [facility] [address] [facility] [id number] [address] [place] [phone] January, Bipolar I disorder, most rec ent episode (or current) mixed, moderate F31.62 [facility] [address] [id number] [address] [place] [phone] Dec, [facility] [address] [facility] [id number] [address] [place] [phone] Dec, [facility] [address] [facility] [id number] [address] [place] [phone] Dec, [facility] [address] [facility] [id number] [address] [place] [phone] Dec, [facility] [address] [facility] [id number] [address] [place] [phone] Nov, Reactive airway disease J45. 909 [facility] [address] [facility] [id number] [address] [place] [phone] Nov, [facility] [address] [facility] [id number] [address] [place] [phone] Nov, [facility] [address] [facility] [id number] [address] [place] [phone] 30 Nov, 2015 [facility] [address] [facility] [id number] [address] [place] [id number] Nov, [facility] [address] [place] [id number] [address] [place] [phone] Nov, Onychomycosis B35.1 ; Hammer toe M20.40 ; [place] or callus L84 and DM neuro manif type II E11.49 [facility] [address] [facility] [id number] [address] [place] [address] Nov, Chronic pain G89.29 ; Leukoc ytosis D72.829 and Diabetes E11.9 [place] [address] [address] Nov, [place] [address] [address] Oct, Bronchitis J40 [place] [address] [id number] Oct, [place] [address] [address] Oct, [place] [address] [address] Oct, Mastoiditis, unspecified lat erality H70.90 and Type 2 diabetes mellitus with complication E11.8 [place] [address] [address] Sep, [place] [address] [address] Sep, Dysuria R30.0 ; Cough R05 ; Benign prostatic hyperplasia with lower urinary tract symptoms, unspecified morphology N40.1 ; Hypokalemia E87.6 and Eustachian tube dysfunction, unspecified laterality H69.80 [place] [address] [address] Sep, Moderate mixed bipolar I dis order F31.62 [place] [address] [address] Sep, Hypokalemia E87.6 [place] [address] [phone] Sep, [place] [address] [phone] Sep, Upper respiratory tract infe ction, unspecified type J06.9 [place] [address] [place] [id number] [address] [place] [phone] Aug, [facility] [address] [id number] [address] [place] [phone] Aug, Dysuria R30.0 [facility] [address] [id number] [address] [place] [phone] Aug, [facility] [address] [id number] [address] [place] [id number] Jul, [facility] [address] [id number] [address] [place] [phone] Jul, [facility] [address] [id number] [address] [place] [phone] Jul, [facility] [address] [id number] [address] [place] [phone] Jul, [facility] [address] [id number] [address] [place] [phone] Jun, [facility] [address] [id number] [address] [place] [phone] Jun, [facility] [address] [id number] [address] [place] [phone] Jun, [facility] [address] [id number] [address] [place] [id number] May, [facility] [address] [id number] [address] [place] [phone] May, Bipolar I disorder, most rec ent episode (or current) mixed, moderate 296.62 [facility] [address] [id number] [address] [place] [id number] 16 May, 2015 [facility] [address] [id number] [address] [place] [phone] 02 May, 2015 Bipolar I disorder, most rec ent episode (or current) mixed, moderate 296.62 and Major depressive disorder, recurrent episode, severe, specified as with psychotic behavior 296.34 [facility] [address] [facility] [id number] [address] [place] [phone] May, Bipolar I disorder, most rec ent episode (or current) mixed, moderate 296.62 [facility] [address] [facility] [id number] [address] [place] [phone] May, [facility] [address] [facility] [id number] [address] [place] [phone] Apr, [facility] [address] [facility] [id number] [address] [place] [id number] Apr, [facility] [address] [facility] [id number] [address] [place] [phone] Apr, Unspecified disorder of kidn ey and ureter 593.9 and Diabetes mellitus type 2, uncontrolled 250.02 [facility] [address] [place] [id number] [address] [place] [phone] Apr, [facility] [address] [facility] [id number] [address] [place] [id number] Apr, [facility] [address] [facility] [id number] [address] [place] [phone] Apr, [facility] [address] [facility] [id number] [address] [place] [phone] Apr, [facility] [address] [facility] [id number] [address] [place] [id number] Apr, Diabetes mellitus type II, u ncontrolled 250.02 [facility] [address] [facility] [id number] [address] [place] [phone] Apr, [facility] [address] [facility] [id number] [address] [place] [phone] Mar, [facility] [address] [facility] [id number] [address] [place] [phone] Mar, [facility] [address] [facility] [id number] [address] [place] [id number] Mar, [facility] [address] [place] [id number] [address] [place] [phone] Mar, Major depressive disorder, r ecurrent episode, severe, specified as with psychotic behavior 296.34 and Bipolar I disorder, most recent episode (or current) mixed, moderate 296.62 [facility] [address] [place] [id number] [address] [place] [phone] Mar, Diabetes 250.00 ; Anuria 788 .5 ; Nausea and vomiting 787.01 and Diarrhea 787.91 [facility] [address] [place] [id number] [address] [place] [phone] Mar, Diabetes 250.00 [facility] [address] [id number] Mar, [facility] [address] [place] [id number] [address] [place] [phone] Mar, Diabetes 250.00 [facility] [address] [place] [id number] [address] [place] [phone] Mar, [facility] [address] [place] [id number] [address] [place] [phone] Mar, [facility] [address] [place] [id number] [address] [place] [id number] Mar, [facility] [address] [place] [id number] [address] [place] [phone] Mar, [facility] [address] [place] [id number] [address] [place] [phone] Mar, Bipolar I disorder, most rec ent episode (or current) mixed, moderate 296.62 and Major depressive disorder, recurrent episode, severe, specified as with psychotic behavior 296.34 [facility] [address] [place] [id number] [address] [place] [id number] Mar, Magnesium deficiency 275.2 ; Hypokalemia 276.8 ; Nausea & vomiting 787.01 and Diabetes mellitus type 2, uncontrolled 250.02 [facility] [address] [place] [id number] [address] [place] [phone] Feb, [facility] [address] [id number] Feb, Bipolar I disorder, most rec ent episode (or current) mixed, moderate 296.62 [facility] [address] [address] Feb, Nausea and vomiting 787.01 ; Left elbow pain 719.42 ; Anuria 788.5 and Diabetes 250.00 [facility] [address] [address] Feb, [facility] [address] [phone] Feb, Hypopotassemia 276.8 and Hyp okalemia 276.8 [place] [address] [address] Feb, Hypopotassemia 276.8 and Hyp okalemia 276.8 [place] [address] [address] Feb, Seborrheic keratoses 702.19 [facility] [address] [place] [id number] [address] [place] [id number] Feb, Hypopotassemia 276.8 and Low magnesium levels 275.2 [facility] [address] [place] [id number] [address] [place] [id number] January, [facility] [address] [place] [id number] [address] [place] [id number] January, [facility] [address] [address] January, [facility] [address] [place] [id number] [address] [place] [phone] January, Scalp lesion 709.9 [facility] [address] [address] January, [facility] [address] [id number] [address] [place] [phone] Dec, Tear of medial cartilage or meniscus of knee, current 836.0 and 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 [facility] [address] [id number] [address] [place] [phone] Dec, [facility] [address] [id number] [address] [place] [id number] Dec, [facility] [address] [id number] [address] [place] [id number] Dec, Squamous cell carcinoma, 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 [facility] [address] [id number] [address] [place] [phone] 14 Dec, 2014 [facility] [address] [id number] [address] [place] [id number] Dec, [facility] [address] [id number] [address] [place] [id number] Nov, [facility] [address] [id number] [address] [place] [phone] Nov, [facility] [address] [id number] [address] [place] [id number] Nov, [facility] [address] [id number] [address] [place] [id number] Nov, [facility] [address] [id number] [address] [place] [id number] Nov, [facility] [address] [id number] [address] [place] [id number] Nov, [facility] [address] [id number] [address] [place] [id number] Nov, [facility] [address] [id number] [address] [place] [id number] Nov, [facility] [address] [id number] [address] [place] [address], [place] [id number] Nov, [facility] [address] [id number] [address] [place] [address], [place] [id number] Nov, [facility] [address] [id number] [address] [place] [address], [place] [id number] Nov, [facility] [address] [id number] [address] [place] [address], [place] [address] Nov, [facility] [address] [id number] [address] [place] [address], [place] [id number] Oct, 2014 [facility] [address] [id number] [address] [place] [address], [place] [id number] Oct, 2014 [facility] [address] [id number] [address] [place] [address], [place] [address] Oct, 2014 [facility] [address] [id number] [address] [place] [address], [place] [address] Oct, 2014 [facility] [address] [id number] [address] [place] [address], [place] [id number] Oct, 2014 [facility] [address] [id number] [address] [place] [address], [place] [address] Oct, 2014 [facility] [address] [id number] [address] [place] [address], [place] [address] Oct, 2014 [facility] [address] [id number] [address] [place] [id number] Oct, 2014 [facility] [address] [id number] [address] [place] [address], [place] [address] Oct, [facility] [address] [id number] [address] [place] [address], [place] [address] Sep, [facility] [address] [id number] [address] [place] [id number] Sep, [facility] [address] [id number] [address] [place] [id number] Sep, [facility] [address] [id number] [address] [place] [address], [place] [address] Sep, [facility] [address] [id number] [address] [place] [address], [place] [address] Sep, [facility] [address] [id number] [address] [place] [address], [place] [address] Sep, [facility] [address] [id number] [address] [place] [address], [place] [address] Sep, [facility] [address] [id number] [address] [place] [address], [place] [address] Sep, [facility] [address] [id number] [address] [place] [address], [place] [address] Sep, [facility] [address] [id number] [address] [place] [address], [place] [address] Sep, [facility] [address] [id number] [address] [place] [address], [place] [address] Sep, [facility] [address] [id number] [address] [place] [address], [place] [address] Sep, [facility] [address] [id number] [address] [place] [address], [place] [address] Sep, [facility] [address] [id number] [address] [place] [address], [place] [address] Sep, [facility] [address] [id number] [address] [place] [address], [place] [address] Sep, [facility] [address] [id number] [address] [place] [address], [place] [address] Sep, [facility] [address] [id number] [address] [place] [address], [place] [address] Aug, [facility] [address] [id number] [address] [place] [address], [place] [address] Aug, [facility] [address] [id number] [facility] [place] [address] Aug, [facility] [address] [id number] [facility] [address] Aug, [facility] [address] [id number] [facility] [address] Aug, [facility] [address] [id number] [facility] [place] [address] Aug, [facility] [address] [id number] [facility] [place] [address] Aug, [facility] [address] [id number] [address] [place] [address], [place] [address] Aug, [facility] [address] [id number] [address] [place] [address], [place] [address] Aug, [facility] [address] [id number] [address] [place] [address], [place] [address] Aug, [facility] [address] [id number] [address] [place] [address], [place] [address] Aug, [facility] [address] [place] [id number] Aug, [facility] [address] [id number] [address] [place] [address], [place] [address] Aug, [facility] [address] [id number] [address] [place] [address], [place] [address] Aug, [facility] [address] [id number] [address] [place] [address], [place] [address] Aug, [facility] [address] [id number] [address] [place] [address], [place] [address] Aug, [facility] [address] [id number] [facility] [place] [address] Aug, [facility] [address] [id number] [address] [place] [address], [place] [address] Aug, [facility] [address] [id number] [address] [place] [address], [place] [address] Aug, [facility] [address] [id number] [address] [place] [address], [place] [address] Aug, [facility] [address] [id number] [address] [place] [address], [place] [address] Aug, [facility] [address] [id number] [address] [place] [address], [place] [address] Aug, [facility] [address] [id number] [address] [place] [address], [place] [address] Aug, [facility] [address] [id number] [address] [place] [address], [place] [address] Aug, [facility] [address] [id number] [address] [place] [address], [place] [address] Aug, [facility] [address] [id number] [address] [place] [address], [place] [address] Aug, [facility] [address] [id number] [address] [place] [address], [place] [address] Aug, [facility] [address] [id number] [address] [place] [address], [place] [address] Aug, [facility] [address] [id number] [address] [place] [address], [place] [address] Aug, [facility] [address] [id number] [address] [place] [address], [place] [address] Aug, [facility] [address] [id number] [address] [place] [address], [place] [address] Jul, [facility] [address] [id number] [address] [place] [address], [place] [address] Jul, [facility] [address] [id number] [address] [place] [address], [place] [address] Jul, [facility] [address] [id number] [address] [place] [address], [place] [address] Jul, [facility] [address] [id number] [address] [place] [address], [place] [address] Jul, [facility] [address] [id number] [address] [place] [address], [place] [address] Jul, [facility] [address] [id number] [address] [place] [address], [place] [address] Jul, [facility] [address] [id number] [address] [place] [address], [place] [address] Jul, [facility] [address] [id number] [address] [place] [address], [place] [address] Jul, [facility] [address] [id number] [address] [place] [address], [place] [address] Jul, [facility] [address] [id number] [address] [place] [address], [place] [address] Jun, [facility] [address] [id number] [address] [place] [address], [place] [address] Jun, [facility] [address] [id number] [address] [place] [address], [place] [address] Jun, [facility] [address] [id number] [address] [place] [address], [place] [address] Jun, [facility] [address] [id number] [address] [place] [address] Jun, [facility] [address] [id number] [address] [place] [address] Jun, [facility] [address] [id number] [address] [place] [address], [place] [address] Jun, [facility] [address] [id number] [address] [place] [address], [place] [address] Jun, [facility] [address] [id number] [address] [place] [address], [place] [address] Jun, [facility] [address] [id number] [address] [place] [address], [place] [address] Jun, 2013 [facility] [address] [id number] [address] [place] [address], [place] [address] 29 Sep, 2013 [facility] [address] [id number] [address] [place] [address], [place] [address] 29 Sep, 2013 [facility] [address] [id number] [address] [place] [address], [place] [address] 26 Sep, 2013 [facility] [address] [id number] [address] [place] [address], [place] [address] 26 Sep, 2013 [facility] [address] [id number] [address] [place] [address], [place] [address] 17 Sep, 2013 [facility] [address] [id number] [address] [place] [address], [place] [address] 17 Sep, 2013 [facility] [address] [id number] [address] [place] [address], [place] [address] 15 May, 2013 [facility] [address] [id number] [address] [place] [address], [place] [address] 15 Sep, 2013 [facility] [address] [id number] [address] [place] [address], [place] [address] 15 May, 2013 [facility] [address] [id number] [address] [place] [address], [place] [address] 15 Sep, 2013 [facility] [address] [id number] [address] [place] [address], [place] [address] 10 Sep, 2013 [facility] [address] [id number] [address] [place] [address], [place] [address] 10 Sep, 2013 [facility] [address] [id number] [address] [place] [address], [place] [address] 09 Sep, 2013 [facility] [address] [id number] [address] [place] [address], [place] [address] 09 Sep, 2013 [facility] [address] [id number] [address] [place] [address], [place] [address] May, [facility] [address] [id number] [address] [place] [address], [place] [address] May, [facility] [address] [id number] [address] [place] [address], [place] [address] Apr, [facility] [address] [id number] [address] [place] [address], [place] [address] Apr, [facility] [address] [id number] [address] [place] [address], [place] [address] Apr, [facility] [address] [id number] [address] [place] [address], [place] [address] Apr, [facility] [address] [id number] [address] [place] [address], [place] [address] Apr, [facility] [address] [id number] [address] [place] [address], [place] [address] Apr, [facility] [address] [id number] [address] [place] [address], [place] [address] Apr, [facility] [address] [id number] [address] [place] [address], [place] [address] Apr, [facility] [address] [id number] [address] [place] [address], [place] [address] Apr, [facility] [address] [id number] [address] [place] [address], [place] [address] Apr, [facility] [address] [id number] [address] [place] [address], [place] [address] Apr, [facility] [address] [id number] [address] [place] [address], [place] [address] Apr, [facility] [address] [id number] [address] [place] [address], [place] [address] Apr, [facility] [address] [id number] [address] [place] [address], [place] [address] Apr, [facility] [address] [id number] [address] [place] [address], [place] [address] Apr, [facility] [address] [id number] [facility] [address] Mar, 2013 [facility] [address] [id number] [address] [place] [address], [place] [address] Mar, [facility] [address] [id number] [address] [place] [address], [place] [address] Mar, [facility] [address] [id number] [address] [place] [address], [place] [address] Mar, [facility] [address] [id number] [address] [place] [address], [place] [address] Mar, [facility] [address] [id number] [address] [place] [address], [place] [address] Mar, [facility] [address] [id number] [address] [place] [address], [place] [address] Mar, [facility] [address] [id number] [address] [place] [address], [place] [address] Mar, [facility] [address] [id number] [address] [place] [address], [place] [address] Mar, [facility] [address] [id number] [address] [place] [address], [place] [address] Mar, [facility] [address] [id number] [address] [place] [address], [place] [address] Mar, 2013 [facility] [address] [id number] [address] [place] [address], [place] [address] Mar, 2013 [facility] [address] [id number] [address] [place] [address], [place] [address] Mar, 2013 [facility] [address] [id number] [address] [place] [address], [place] [address] Mar, 2013 [facility] [address] [id number] [address] [place] [address], [place] [address] Mar, 2013 [facility] [address] [id number] [facility] [place] [address] Mar, [facility] [address] [id number] [facility] [place] [address] Mar, [facility] [address] [id number] [facility] [place] [address] Mar, [facility] [address] [id number] [facility] [place] [address] Feb, [facility] [address] [id number] [facility] [place] [address] Feb, [facility] [address] [id number] [address] [place] [address], [place] [address] Feb, [facility] [address] [id number] [address] [place] [address], [place] [address] Feb, [facility] [address] [id number] [address] [place] [address], [place] [address] Feb, [facility] [address] [id number] [address] [place] [address], [place] [address] Feb, [facility] [address] [id number] [address] [place] [address], [place] [address] Feb, [facility] [address] [id number] [address] [place] [address], [place] [address] Feb, [facility] [address] [id number] [address] [place] [address], [place] [address] Feb, [facility] [address] [id number] [address] [place] [address], [place] [address] Feb, [facility] [address] [id number] [address] [place] [address], [place] [address] Feb, [facility] [address] [id number] [address] [place] [address], [place] [address] Feb, [facility] [address] [id number] [address] [place] [address], [place] [address] Feb, [facility] [address] [id number] [facility] [address] Feb, [facility] [address] [id number] [facility] [place] [address] January[facility] [address] [id number] [facility] [place] [address] January, [facility] [address] [id number] [address] [place] [address], [place] [address] January, [facility] [address] [id number] [facility] [place] [address] January, [facility] [address] [id number] [address] [place] [address], [place] [address] January, [facility] [address] [id number] [address] [place] [address], [place] [address] January, [facility] [address] [id number] [address] [place] [address], [place] [address] January, [facility] [address] [id number] [address] [place] [address], [place] [address] January, [facility] [address] [id number] [address] [place] [address], [place] [address] January, [facility] [address] [id number] [address] [place] [address], [place] [address] January, [facility] [address] [id number] [address] [place] [address], [place] [address] January, [facility] [address] [id number] [address] [place] [address], [place] [address] January, [facility] [address] [id number] [address] [place] [address], [place] [address] January, [facility] [address] [id number] [address] [place] [address], [place] [address] January, [facility] [address] [id number] [facility] [address] Dec, [facility] [address] [id number] [address] [place] [address], [place] [address] Dec, [facility] [address] [id number] [address] [place] [address], [place] [address] Dec, [facility] [address] [id number] [address] [place] [address], [place] [address] Dec, [facility] [address] [id number] [address] [place] [address], [place] [address] Dec, [facility] [address] [id number] [address] [place] [address], [place] [address] Dec, [facility] [address] [id number] [address] [place] [address], [place] [address] Dec, [facility] [address] [id number] [address] [place] [address], [place] [address] Dec, [facility] [address] [id number] [address] [place] [address], [place] [address] Dec, [facility] [address] [id number] [address] [place] [address], [place] [address] Dec, [facility] [address] [id number] [address] [place] [address], [place] [address] Nov, [facility] [address] [id number] [address] [place] [address], [place] [address] Nov, [facility] [address] [id number] [address] [place] [address], [place] [address] Nov, [facility] [address] [id number] [address] [place] [address], [place] [address] Nov, [facility] [address] [id number] [address] [place] [address], [place] [address] Nov, [facility] [address] [id number] [address] [place] [address], [place] [address] Nov, [facility] [address] [id number] [address] [place] [address], [place] [address] Nov, [facility] [address] [id number] [address] [place] [address], [place] [address] Nov, [facility] [address] [id number] [address] [place] [address], [place] [address] Nov, [facility] [address] [id number] [address] [place] [address], [place] [address] Nov, [facility] [address] [id number] [address] [place] [address], [place] [address] Oct, [facility] [address] [id number] [address] [place] [address], [place] [address] Oct, [facility] [address] [id number] [address] [place] [address], [place] [address] Oct, [facility] [address] [id number] [address] [place] [address], [place] [address] Oct, [facility] [address] [id number] [address] [place] [address], [place] [address] Oct, [facility] [address] [id number] [address] [place] [address], [place] [address] Oct, [facility] [address] [id number] [address] [place] [address], [place] [address] Oct, [facility] [address] [id number] [address] [place] [address], [place] [address] Oct, [facility] [address] [id number] [address] [place] [address], [place] [address] Oct, [facility] [address] [id number] [address] [place] [address], [place] [address] Oct, [facility] [address] [id number] [address] [place] [address], [place] [address] Oct, [facility] [address] [id number] [address] [place] [address], [place] [address] Oct, [facility] [address] [id number] [address] [place] [address], [place] [address] Oct, [facility] [address] [id number] [address] [place] [address], [place] [address] Oct, [facility] [address] [id number] [address] [place] [address], [place] [address] Sep, [facility] [address] [id number] [address] [place] [address], [place] [address] Sep, [facility] [address] [id number] [address] [place] [address], [place] [address] Sep, [facility] [address] [id number] [address] [place] [address], [place] [address] Sep, [facility] [address] [id number] [address] [place] [address], [place] [address] Sep, [facility] [address] [id number] [address] [place] [address], [place] [address] Sep, [facility] [address] [id number] [address] [place] [address], [place] [address] Sep, [facility] [address] [id number] [address] [place] [address], [place] [address] Sep, [facility] [address] [id number] [address] [place] [address], [place] [address] Sep, [facility] [address] [id number] [address] [place] [address], [place] [address] Sep, [facility] [address] [id number] [address] [place] [address], [place] [address] Aug, [facility] [address] [id number] [address] [place] [address], [place] [address] Aug, [facility] [address] [id number] [address] [place] [address], [place] [address] Jul, [facility] [address] [id number] [address] [place] [address], [place] [address] Jul, [facility] [address] [id number] [address] [place] [address], [place] [address] Jul, [facility] [address] [id number] [address] [place] [address], [place] [address] Jul, [facility] [address] [id number] [address] [place] [address], [place] [address] Jul, [facility] [address] [id number] [address] [place] [address], [place] [address] Jul, [facility] [address] [id number] [address] [place] [address], [place] [address] Jul, [facility] [address] [id number] [address] [place] [address], [place] [address] Jul, [facility] [address] [id number] [address] [place] [address], [place] [address] Jul, [facility] [address] [id number] [address] [place] [address], [place] [address] Jul, [facility] [address] [id number] [address] [place] [id number] Jul, [facility] [address] [id number] [address] [place] [address], [place] [address] Jul, [facility] [address] [id number] [address] [place] [address] Jul, [facility] [address] [id number] [address] [place] [address], [place] [address] Jul, [facility] [address] [id number] [address] [place] [id number] Jul, [facility] [address] [id number] [address] [place] [address], [place] [address] Jul, [facility] [address] [id number] [address] [place] [address], [place] [address] Jul, [facility] [address] [id number] [address] [place] [address], [place] [address] Jul, 2012 [facility] [address] [id number] [address] [place] [address], [place] [address] Jul, 2012 [facility] [address] [id number] [address] [place] [address], [place] [address] Jun, 2012 [facility] [address] [id number] [address] [place] [address], [place] [address] Jun, 2012 [facility] [address] [id number] [address] [place] [address], [place] [address] Jun, 2012 [facility] [address] [id number] [address] [place] [address], [place] [address] Jun, 2012 [facility] [address] [id number] [address] [place] [address], [place] [address] Jun, 2012 [facility] [address] [id number] [address] [place] [address], [place] [address] Jun, 2012 [facility] [address] [id number] [address] [place] [address], [place] [address] Jun, 2012 [facility] [address] [id number] [address] [place] [address], [place] [address] Jun, [facility] [address] [id number] [address] [place] [address], [place] [address] Jun, 2012 [facility] [address] [id number] [address] [place] [address] Jun, 2012 [facility] [address] [id number] [address] [place] [address], [place] [address] Jun, [facility] [address] [id number] [address] [place] [address], [place] [address] May, [facility] [address] [id number] [address] [place] [address], [place] [address] 25 May, 2013 [facility] [address] [id number] [address] [place] [address], [place] [address] 19 May, 2012 [facility] [address] [id number] [address] [place] [address], [place] [address] 17 May, 2012 [facility] [address] [id number] [address] [place] [address], [place] [address] 11 May, 2012 [facility] [address] [id number] [address] [place] [address], [place] [address] 10 May, 2012 [facility] [address] [id number] [address] [place] [address], [place] [address] 09 May, 2013 [facility] [address] [id number] [address] [place] [address], [place] [address] 05 May, 2013 [facility] [address] [id number] [address] [place] [address], [place] [address] Apr, [facility] [address] [id number] [address] [place] [address], [place] [address] Apr, [facility] [address] [id number] [address] [place] [address], [place] [address] Apr, [facility] [address] [id number] [address] [place] [address], [place] [address] Apr, [facility] [address] [id number] [address] [place] [address], [place] [address] Apr, [facility] [address] [id number] [address] [place] [address], [place] [address] Mar, [facility] [address] [id number] [address] [place] [address], [place] [address] Mar, [facility] [address] [id number] [address] [place] [address], [place] [address] Mar, [facility] [address] [id number] [address] [place] [address], [place] [address] Mar, [facility] [address] [id number] [address] [place] [address], [place] [address] Mar, [facility] [address] [id number] [address] [place] [address], [place] [address] Mar, [facility] [address] [id number] [address] [place] [address], [place] [address] Mar, [facility] [address] [id number] [address] [place] [address], [place] [address] Mar, [facility] [address] [id number] [address] [place] [address], [place] [address] Feb, [facility] [address] [id number] [address] [place] [address], [place] [address] Feb, [facility] [address] [id number] [address] [place] [address], [place] [address] January, [facility] [address] [id number] [address] [place] [address], [place] [address] January, [facility] [address] [id number] [address] [place] [address], [place] [address] Dec, [facility] [address] [id number] [address] [place] [address], [place] [address] Dec, [facility] [address] [id number] [address] [place] [address], [place] [address] Nov, [facility] [address] [id number] [address] [place] [address], [place] [address] Nov, [facility] [address] [id number] [address] [place] [address], [place] [address] Nov, [facility] [address] [id number] [address] [place] [address], [place] [address] Nov, [facility] [address] [id number] [address] [place] [address], [place] [address] Oct, [facility] [address] [id number] [address] [place] [address], [place] [address] Oct, [facility] [address] [id number] [address] [place] [address], [place] [address] 26 Oct, 2012 [facility] [address] [id number] [address] [place] [address], [place] [address] 26 Oct, 2012 [facility] [address] [id number] [address] [place] [address], [place] [address] 16 Oct, 2012 [facility] [address] [id number] [address] [place] [address], [place] [address] 14 Oct, 2012 [facility] [address] [id number] [address] [place] [address], [place] [address] 08 Oct, 2012 [facility] [address] [id number] [address] [place] [address], [place] [address] 07 Oct, 2012 [facility] [address] [id number] [address] [place] [address], [place] [address] 03 Oct, 2012 [facility] [address] [id number] [address] [place] [address], [place] [address] 30 Sep, 2012 [facility] [address] [id number] [address] [place] [address], [place] [address] Sep, [facility] [address] [id number] [address] [place] [address], [place] [address] Sep, [facility] [address] [id number] [address] [place] [address], [place] [address] Sep, [facility] [address] [id number] [address] [place] [address], [place] [address] Sep, [facility] [address] [id number] [address] [place] [address], [place] [address] Sep, [facility] [address] [id number] [address] [place] [address], [place] [address] 09 Sep, 2012 [facility] [address] [id number] [address] [place] [address], [place] [address] 08 Sep, 2012 [facility] [address] [id number] [address] [place] [address], [place] [address] Aug, [facility] [address] [id number] [address] [place] [address], [place] [address] Aug, [facility] [address] [id number] [address] [place] [address], [place] [address] Aug, [facility] [address] [id number] [address] [place] [address], [place] [address] Aug, [facility] [address] [id number] [address] [place] [address], [place] [address] Aug, [facility] [address] [id number] [address] [place] [address], [place] [address] Aug, [facility] [address] [id number] [address] [place] [address], [place] [address] Aug, [facility] [address] [id number] [address] [place] [address], [place] [address] Aug, [facility] [address] [id number] [address] [place] [address], [place] [address] Jul, [facility] [address] [id number] [address] [place] [address], [place] [address] Jul, [facility] [address] [id number] [address] [place] [address], [place] [address] Jul, [facility] [address] [id number] [address] [place] [address], [place] [address] Jul, [facility] [address] [id number] [address] [place] [address] Jul, [facility] [address] [id number] [address] [place] [address], [place] [address] Jul, [facility] [address] [id number] [address] [place] [address], [place] [address] Jun, [facility] [address] [id number] [address] [place] [address], [place] [address] Jun, [facility] [address] [id number] [address] [place] [address], [place] [address] 23 Jun, 2012 [facility] [address] [id number] [address] [place] [address], [place] [address] 23 Jun, 2012 [facility] [address] [id number] [address] [place] [address], [place] [address] 22 Jun, 2012 [facility] [address] [id number] [address] [place] [address], [place] [address] 19 Jun, 2012 [facility] [address] [id number] [address] [place] [address], [place] [address] 19 Jun, 2012 [facility] [address] [id number] [address] [place] [address], [place] [address] 10 Jun, 2012 [facility] [address] [id number] [address] [place] [address], [place] [address] 10 Jun, 2012 [facility] [address] [id number] [address] [place] [address], [place] [address] 26 May, 2012 [facility] [address] [id number] [address] [place] [address], [place] [address] 24 May, 2012 [facility] [address] [id number] [address] [place] [address], [place] [address] 18 May, 2012 [facility] [address] [id number] [address] [place] [address], [place] [address] 30 Apr, 2012 [facility] [address] [id number] [address] [place] [address], [place] [address] 29 Apr, 2012 [facility] [address] [id number] [address] [place] [address], [place] [address] 18 Apr, 2012 [facility] [address] [id number] [address] [place] [address], [place] [address] 14 Apr, 2012 [facility] [address] [id number] [address] [place] [address], [place] [address] 10 Apr, 2012 [facility] [address] [id number] [address] [place] [address], [place] [address] Apr, [facility] [address] [id number] [address] [place] [address], [place] [address] Mar, [facility] [address] [id number] [address] [place] [address], [place] [address] Mar, [facility] [address] [id number] [address] [place] [address], [place] [address] Mar, [facility] [address] [id number] [address] [place] [address], [place] [address] Mar, [facility] [address] [id number] [address] [place] [address], [place] [address] Feb, [facility] [address] [id number] [address] [place] [address], [place] [address] Feb, [facility] [address] [id number] [address] [place] [address], [place] [address] Feb, [facility] [address] [id number] [address] [place] [address], [place] [address] Feb, [facility] [address] [id number] [address] [place] [address], [place] [address] Feb, [facility] [address] [id number] [address] [place] [address], [place] [address] January, [facility] [address] [id number] [address] [place] [address], [place] [address] January, [facility] [address] [id number] [address] [place] [address], [place] [address] January, [facility] [address] [id number] [address] [place] [address], [place] [address] January, [facility] [address] [id number] [address] [place] [address], [place] [address] January, [facility] [address] [id number] [address] [place] [address], [place] [address] January, [facility] [address] [id number] [address] [place] [address], [place] [address] 24 Dec, 2011 [facility] [address] [id number] [address] [place] [address], [place] [address] 24 Dec, 2011 [facility] [address] [id number] [address] [place] [address], [place] [address] 17 Dec, 2011 [facility] [address] [id number] [address] [place] [address], [place] [address] 09 Dec, 2011 [facility] [address] [id number] [address] [place] [address], [place] [address] 06 Dec, 2011 [facility] [address] [id number] [address] [place] [address], [place] [address] 27 Nov, 2011 [facility] [address] [id number] [address] [place] [address], [place] [address] 14 Nov, 2011 [facility] [address] [id number] [address] [place] [address], [place] [address] 12 Nov, 2011 [facility] [address] [id number] [address] [place] [address], [place] [address] 07 Nov, 2011 [facility] [address] [id number] [address] [place] [address], [place] [address] 29 Oct, 2011 [facility] [address] [id number] [address] [place] [address], [place] [address] 28 Oct, 2011 [facility] [address] [id number] [address] [place] [address], [place] [address] 24 Oct, 2011 [facility] [address] [id number] [address] [place] [address], [place] [address] 13 Oct, 2011 [facility] [address] [id number] [address] [place] [address], [place] [address] 08 Oct, 2011 [facility] [address] [id number] [address] [place] [address], [place] [address] 31 Sep, 2011 [facility] [address] [id number] [address] [place] [address], [place] [address] Sep, [facility] [address] [id number] [address] [place] [address], [place] [address] Sep, [facility] [address] [id number] [address] [place] [address], [place] [address] Sep, [facility] [address] [id number] [address] [place] [address], [place] [address] Sep, [facility] [address] [id number] [address] [place] [address], [place] [address] Sep, [facility] [address] [id number] [address] [place] [address], [place] [address] Aug, [facility] [address] [id number] [address] [place] [address], [place] [address] Aug, [facility] [address] [id number] [address] [place] [address], [place] [address] Aug, [facility] [address] [id number] [address] [place] [address], [place] [address] Jul, [facility] [address] [id number] [address] [place] [address], [place] [address] Jul, [facility] [address] [id number] [address] [place] [address], [place] [address] Jul, [facility] [address] [id number] [address] [place] [address], [place] [address] Jul, [facility] [address] [id number] [address] [place] [address], [place] [address] Jun, [facility] [address] [id number] [address] [place] [address], [place] [address] Jun, [facility] [address] [id number] [address] [place] [address], [place] [address] Jun, [facility] [address] [id number] [address] [place] [address], [place] [address] Jun, [facility] [address] [id number] [address] [place] [address], [place] [address] 10 Jun, 2011 [facility] [address] [id number] [address] [place] [address], [place] [address] 10 Jun, 2011 [facility] [address] [id number] [address] [place] [address], [place] [address] 11 Mar, 2011 [facility] [address] [id number] [address] [place] [address], [place] [address] 18 Dec, 2010 [facility] [address] [id number] [address] [place] [address], [place] [address] 11 Dec, 2010 [facility] [address] [id number] [address] [place] [address], [place] [address] 18 Nov, 2010 [facility] [address] [id number] [address] [place] [address], [place] [address] 16 Nov, 2010 [facility] [address] [id number] [address] [place] [address], [place] [address] 10 Sep, 2010 [facility] [address] [id number] [address] [place] [address], [place] [address] 31 Aug, 2010 [facility] [address] [id number] [address] [place] [address], [place] [address] 29 Aug, 2010 [facility] [address] [id number] [address] [place] [address], [place] [address] 29 Aug, 2010 [facility] [address] [id number] [address] [place] [address], [place] [address] 29 Aug, 2010 [facility] [address] [id number] [address] [place] [address], [place] [address] 27 Aug, 2010 [facility] [address] [id number] [address] [place] [address], [place] [address] 14 Aug, 2010 [facility] [address] [id number] [address] [place] [address], [place] [address] 08 Aug, 2010 [facility] [address] [id number] [address] [place] [address], [place] [address] 08 Aug, 2010 [facility] [address] [id number] [address] [place] [address], [place] [address] Aug, [facility] [address] [id number] [address] [place] [address], [place] [address] Aug, [facility] [address] [id number] [address] [place] [address], [place] [address] Aug, [facility] [address] [id number] [address] [place] [address], [place] [address] Aug, [facility] [address] [id number] [address] [place] [address], [place] [address] Jul, [facility] [address] [id number] [address] [place] [address], [place] [address] Jul, [facility] [address] [id number] [address] [place] [address], [place] [address] Jul, [facility] [address] [id number] [address] [place] [address], [place] [address] Jul, [facility] [address] [id number] [address] [place] [address], [place] [address] Jul, [facility] [address] [id number] [address] [place] [address], [place] [address] Jul, [facility] [address] [id number] [address] [place] [address], [place] [address] 24 Jun, 2010 [facility] [address] [id number] [address] [place] [address], [place] [address] Jun, [facility] [address] [id number] [address] [place] [address], [place] [address] Jun, [facility] [address] [id number] [address] [place] [address], [place] [address] Jun, [facility] [address] [id number] [address] [place] [address], [place] [address] 16 Apr, 2010 [facility] [address] [id number] [address] [place] [address], [place] [address] Mar, [facility] [address] [id number] [address] [place] [phone] Feb, [facility] [address] [id number] [address] [place] [phone] January, [facility] [address] [id number] [address] [place] [phone] 15 Dec, 2009 [facility] [address] [id number] [address] [place] [phone] Nov, [facility] [address] [id number] [address] [place] [address], [place] [address] Aug, [facility] [address] [id number] [address] [place] [phone] Aug, [facility] [address] [id number] [address] [place] [address], [place] [address] Aug, [facility] [address] [id number] [address] [place] [phone] Jul, [facility] [address] [id number] [address] [place] [phone] Jul, [facility] [address] [id number] [address] [place] [phone] Jul, [facility] [address] [id number] [address] [place] [id number] 30 Jun, 2009 [facility] [address] [id number] [address] [place] [phone] 29 Jun, 2009 [facility] [address] [id number] [address] [place] [phone] Jun, [facility] [address] [id number] [address] [place] [phone] Jun, [facility] [address] [id number] [address] [place] [id number] Jun, [facility] [address] [id number] [address] [place] [phone] Jun, [facility] [address] [facility] [id number] [address] [place] [phone] Apr, [facility] [address] [facility] [id number] [address] [place] [id number] Apr, [facility] [address] [facility] [id number] [address] [place] [phone] Feb, [facility] [address] [facility] [id number] [address] [place] [phone] January, [facility] [address] [facility] [id number] [address] [place] [phone] Dec, IMMUNIZATIONS No Known Immunizations SOCIAL HISTORY [...] obesity Medical History skin cancer-basal cell [employer] (removed ) Medical History Arthritis Medical History [...] to urinate 09/16/15 Hospitalization History [facility] inpatient mental health ea rly 1999' Hospitalization History hyperkalemia 10/2017 Hospitalization History fluid in lung
--- OUTSIDE RECORDS SUMMARY | 2020-03-01 17:23 | XMS REPORT ---
Author Author Michele WASHBURN Organization [facility] Address [address] [place] [address] Care Team Providers Care Speech Communication Professor Name Role Phone NOEMI WASHBURN Unavailable PROBLEMS Type Condition ICD9-CM Code NOD38-HX Code Onset Dates Condition S tatus SNOMED Code Problem Cough R05 Active 28589618 Problem Benign prostatic hyperplasia with lower urinary tract symptoms, unspecified morphology N40.1 Active 23312 6007 Problem Eustachian tube dysfunction, unspecified laterality H69.80 Active 51129073 Problem Chronic pain G89.29 Active 1228300 1 Problem DM neuro manif type II E11.49 Active 03446509 Problem Diabetes E11.9 Active 83902809 Problem Leukocytosis D72.829 Active 2308893 06 Problem Falling R29.6 Active 424702929 Problem Pressure ulcer of other site, stage 3 L89.893 Active 067045500 Problem 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 Active 434528708 Problem Eye exam abnormal R93.8 Active 16 5939230 Problem Dysuria R30.0 Active 30206657 Problem Hypokalemia E87.6 Active 59905951 Problem Morbid obesity E66.01 Active 95948 6002 Problem Anxiety F41.9 Active 49453157 Problem Diabetic polyneuropathy associated with type 2 d iabetes mellitus E11.42 Active 60932419 Problem Essential hypertension I10 Active 44757712 Problem Bilateral primary osteoarthritis of knee M17.0 Active 664442006 Problem Polyneuropathy associated with underlying disease G63 Active 437582887 Problem Anemia of chronic illness D63.8 Acti ve 505759607 Problem Lymphocytosis D72.820 Active 024033 09 Problem Retinal edema H35.81 Active 825968 6 Problem Chronic lymphocytic leukemia C91.10 A ctive 17839301 Problem Bipolar disorder, in partial remission, most rec ent episode depressed F31.75 Active 25579180 Problem Pure hypercholesterolemia E78.00 Acti ve 558724913 Problem Primary osteoarthritis of right knee M17.11 Active 430212997052340 Problem Bipolar disorder F31.9 Active 137 34286 Problem Bipolar I disorder, most recent episode (or curr ent) mixed, moderate F31.62 Active 28013010 Problem Chronic diastolic (congestive) heart failure I50.3 2 Active 273068799 Problem Reactive airway disease J45.909 Active 067546414020 Problem Insomnia, unspecified type G47.00 Act sharon 581075179 Problem Other chronic pain G89.29 Active 8 8033830 Problem Other iron deficiency anemia D50.8 A ctive 33760505 Problem Mild cognitive impairment G31.84 Acti ve 096030225 Problem Skin cancer C44.90 Active 37976753 7 ALLERGIES No Information ENCOUNTERS Encounter Location Date Diagnosis [place] [address] [address] [facility] [id number] [address] [place] [phone] Jun, [place] [address] [place] [id number] [address] [place] [address] Jun, [place] [address] [place] [id number] [address] [place] [address] May, [facility] [address] [facility] [id number] [address] [place] [address] Apr, Chronic pain G89.29 and Bipo lar disorder F31.9 [place] [facility] [id number] [address] [place] [phone] Mar, Bipolar disorder F31.9 and C hronic pain G89.29 [facility] [address] [facility] [id number] [address] [place] [phone] Feb, Bipolar disorder F31.9 [facility] [address] [facility] [id number] [address] [place] [phone] Feb, Cellulitis of right upper ex tremity L03.113 and Skin abrasion T14.8XXA [facility] [address] [facility] [id number] [address] [place] [phone] Feb, Bipolar disorder, in partial remission, most recent episode depressed F31.75 and Mild cognitive impairment G31.84 [facility] [address] [id number] [address] [place] [phone] Feb, Chronic pain G89.29 [facility] [address] [id number] [address] [place] [address] Feb, Bipolar disorder, in partial remission, most recent episode depressed F31.75 and Mild cognitive impairment G31.84 [facility] [address] [id number] [address] [place] [phone] January, Bipolar disorder, in partial remission, most recent episode depressed F31.75 and Mild cognitive impairment G31.84 [facility] [address] [id number] [address] [place] [phone] January, Chronic pain G89.29 and Bipo lar disorder F31.9 [facility] [address] [id number] [address] [place] [phone] January, Bipolar disorder, in partial remission, most recent episode depressed F31.75 and Mild cognitive impairment G31.84 [facility] [address] [id number] [address] [place] [phone] Dec, [facility] [address] [id number] [address] [place] [phone] Dec, Chronic pain G89.29 and Bipo lar disorder F31.9 [facility] [address] [id number] [address] [place] [phone] Dec, Edema of both lower extremit ies R60.0 [facility] [address] [id number] [address] [place] [id number] Dec, Bipolar disorder F31.9 [facility] [address] [id number] [address] [place] [phone] Dec, Bipolar disorder, in partial remission, most recent episode depressed F31.75 and Mild cognitive impairment G31.84 [facility] [address] [id number] [address] [place] [phone] Nov, [place] [address] [place] [id number] [address] [place] [address] Nov, Chronic pain G89.29 [place] [address] [place] [id number] [address] [place] [phone] Nov, Bipolar disorder, in partial remission, most recent episode depressed F31.75 and Mild cognitive impairment G31.84 [place] [address] [address] [place] [id number] [address] [place] [address] Nov, Bipolar disorder F31.9 [place] [address] [address] [place] [id number] [address] [place] [address] Nov, [facility] Z[facility].00 ; Polyneuropathy associated with [...] unspecified morphology N40.1 and Essential hypertension I10 [place] [id number] [place] [address] Oct, Chronic pain G89.29 [place] [id number] [place] [address] Oct, Diabetes E11.9 [place] [address] [place] [id number] [address] [place] [phone] Oct, Bipolar I disorder, most rec ent episode (or current) mixed, moderate F31.62 and Mild cognitive impairment G31.84 [place] [address] [place] [id number] [address] [place] [phone] Oct, Bipolar I disorder, most rec ent episode (or current) mixed, moderate F31.62 and Mild cognitive impairment G31.84 [place] [address] [address] [place] [id number] [address] [place] [address] Sep, Bipolar I disorder, most rec ent episode (or current) mixed, moderate F31.62 and Mild cognitive impairment G31.84 [facility] [address] [facility] [id number] [address] [place] [phone] Sep, [facility] [address] [facility] [id number] [address] [place] [address] Sep, Diabetes E11.9 ; Hypoxia R09 .02 ; Hyperglycemia R73.9 ; Therapeutic drug monitoring Z51.81 ; BMI 50.0-59.9, adult Z68.43 and Skin cancer C44.90 [place] [address] [address] [facility] [id number] [address] [place] [phone] Sep, Chronic pain G89.29 [place] [address] [place] [id number] [address] [place] [phone] Sep, Bipolar I disorder, most rec ent episode (or current) mixed, moderate F31.62 [facility] [address] [facility] [id number] [address] [place] [phone] Sep, [facility] [address] [facility] [id number] [address] [place] [phone] Sep, [facility] [address] [facility] [id number] [address] [place] [phone] Aug, Chronic pain G89.29 [facility] [address] [facility] [id number] [address] [place] [phone] Aug, Bipolar I disorder, most rec ent episode (or current) mixed, moderate F31.62 [facility] [address] [facility] [id number] [address] [place] [phone] Aug, Bipolar I disorder, most rec ent episode (or current) mixed, moderate F31.62 and Mild cognitive impairment G31.84 [facility] [address] [facility] [id number] [address] [place] [phone] Jul, [facility] [address] [id number] [address] [place] [phone] Jul, Chronic pain G89.29 [facility] [address] [id number] [address] [place] [phone] Jul, Bipolar I disorder, most rec ent episode (or current) mixed, moderate F31.62 and Mild cognitive impairment G31.84 [facility] [address] [id number] [address] [place] [phone] Jul, Bipolar I disorder, most rec ent episode (or current) mixed, moderate F31.62 and MCI (mild cognitive impairment) G31.84 [facility] [address] [id number] [address] [place] [phone] Jul, [facility] [address] [id number] [address] [place] [phone] Jul, [facility] [address] [id number] [address] [place] [phone] Jul, Bipolar I disorder, most rec ent episode (or current) mixed, moderate F31.62 [facility] [address] [id number] [address] [place] [phone] Jul, Chronic pain G89.29 [facility] [address] [id number] [address] [place] [phone] Jun, Bipolar I disorder, most rec ent episode (or current) mixed, moderate F31.62 [facility] [address] [id number] [address] [place] [phone] Jun, Pre-procedure lab exam Z01.8 12 [facility] [address] [id number] [address] [place] [phone] Jun, [facility] [address] [id number] [place] [id number] Jun, [facility] [address] [id number] [address] [place] [phone] Jun, [facility] [address] [address] Jun, Forgetfulness R68.89 ; Pre-s yncope R55 ; Localized edema R60.0 ; Other iron deficiency anemia D50.8 and BMI 50.0-59.9, adult Z68.43 [place] [address] [address] Jun, Chronic pain G89.29 [place] [address] [address] Jun, Chronic pain G89.29 [place] [address] [address] Jun, Bipolar I disorder, most rec ent episode (or current) mixed, moderate F31.62 [place] [address] [address] May, Chronic pain G89.29 [place] [address] [address] Apr, [place] [address] [address] Apr, Chronic pain G89.29 [place] [address] [place] [id number] [place] [address] Apr, Primary osteoarthritis of ri ght knee M17.11 [place] [address] [address] Mar, [place] [address] [address] Mar, BMI 50.0-59.9, adult Z68.43 and Bipolar disorder, in partial remission, most recent episode depressed F31.75 [place] [address] [place] [id number] [place] [address] Mar, Diabetes E11.9 ; Pure hyperc holesterolemia E78.00 ; Essential hypertension I10 ; Nausea with vomiting, unspecified R11.2 and Headache, unspecified headache type R51 [facility] [address] [facility] [id number] [address] [place] [phone] Mar, Bipolar I disorder, most rec ent episode (or current) mixed, moderate F31.62 [facility] [address] [facility] [id number] [address] [place] [address] Mar, Bipolar I disorder, most rec ent episode (or current) mixed, moderate F31.62 [place] [address] [place] [id number] [address] [place] [address] Mar, Chronic pain G89.29 [place] [address] [facility] [id number] [address] [place] [phone] Mar, Bipolar I disorder, most rec ent episode (or current) mixed, moderate F31.62 [place] [address] [place] [id number] [address] [place] [phone] Feb, Bipolar I disorder, most rec ent episode (or current) mixed, moderate F31.62 [place] [place] [id number] [address] [place] [address] Feb, Chronic pain G89.29 [facility] [address] [place] [id number] [address] [place] [phone] Feb, Decubitus ulcer of right josselin t, stage 3 L89.893 and BMI 50.0-59.9, adult Z68.43 [place] [address] [place] [id number] [address] [place] [address] Feb, Bipolar I disorder, most rec ent episode (or current) mixed, moderate F31.62 [place] [address] [place] [id number] [address] [place] [address] Feb, [facility] [address] [facility] [id number] [address] [place] [id number] January, [facility] [address] [facility] [id number] [address] [place] [phone] January, Chronic pain G89.29 [facility] [address] [facility] [id number] [address] [place] [id number] January, Bipolar I disorder, most rec ent episode (or current) mixed, moderate F31.62 [facility] [address] [place] [id number] [address] [place] [address] January, Bipolar I disorder, most rec ent episode (or current) mixed, moderate F31.62 [place] [address] [place] [id number] [address] [place] [address] Dec, Bipolar I disorder, most rec ent episode (or current) mixed, moderate F31.62 and BMI 50.0-59.9, adult Z68.43 [place] [address] [place] [id number] [place] [address] Dec, Bipolar I disorder, most rec ent episode (or current) mixed, moderate F31.62 [place] [address] [address] Dec, Chronic pain G89.29 [place] [address] [place] [id number] [place] [address] Dec, DM neuro manif type II E11.4 9 ; Right flank pain R10.9 ; 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 ; Encounter for medication monitoring Z51.81 and BMI 50.0-59.9, adult Z68.43 [place] [address] [place] [id number] [address] [place] [address] Dec, Bipolar I disorder, most rec ent episode (or current) mixed, moderate F31.62 [place] [address] [place] [id number] [address] [place] [address] Nov, Bipolar I disorder, most rec ent episode (or current) mixed, moderate F31.62 [place] [address] [place] [id number] [address] [place] [address] Nov, Chronic pain G89.29 [place] [address] [place] [id number] [address] [place] [address] Nov, Bipolar I disorder, most rec ent episode (or current) mixed, moderate F31.62 [place] [address] [place] [id number] [address] [place] [address] Nov, Hypokalemia E87.6 [place] [address] [place] [id number] [place] [address] Nov, Bipolar I disorder, most rec ent episode (or current) mixed, moderate F31.62 [place] [address] [place] [id number] [place] [address] Oct, Chronic pain G89.29 [place] [address] [place] [id number] [place] [address] Oct, BMI 50.0-59.9, adult Z68.43 and Bipolar I disorder, most recent episode (or current) mixed, moderate F31.62 [place] [address] [address] Oct, Bipolar I disorder, most rec ent episode (or current) mixed, moderate F31.62 [place] [address] [address] Oct, [place] [address] [address] Oct, Hypokalemia E87.6 [place] [address] [address] Oct, DM neuro manif type II E11.4 9 [place] [address] [address] Oct, Bipolar I disorder, most rec ent episode (or current) mixed, moderate F31.62 [place] [address] [place] [id number] [place] [address] Oct, Bipolar I disorder, most rec ent episode (or current) mixed, moderate F31.62 [place] [address] [address] 14 Oct, 2017 Hyperkalemia E87.5 ; Falling R29.6 ; BMI 50.0-59.9, adult Z68.43 and Acute left ankle pain M25.572 [place] [address] [address] 08 Oct, 2017 DM neuro manif type II E11.4 9 [place] [address] [address] Oct, [place] [address] [address] Sep, Chronic pain G89.29 [place] [address] [address] Sep, [place] [address] [address] Sep, Bilateral primary osteoarthr itis of knee M17.0 [place] [address] [address] 18 Sep, 2017 Generalized edema R60.1 [place] [address] [address] 16 Sep, 2017 Bipolar I disorder, most rec ent episode (or current) mixed, moderate F31.62 [place] [address] [address] 15 Sep, 2017 Hypoxia R09.02 ; Other hyper volemia E87.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 ; Anemia of chronic illness D63.8 and BMI 50.0- 59.9, adult Z68.43 [place] [address] [address] Sep, [place] [address] [facility] [id number] [address] [place] [phone] Sep, Bipolar I disorder, most rec ent episode (or current) mixed, moderate F31.62 [facility] [address] [facility] [id number] [address] [place] [address] Aug, Chronic pain G89.29 [facility] [address] [facility] [id number] [address] [place] [address] Aug, Generalized edema R60.1 [facility] [address] [id number] [address] [place] [phone] Aug, [facility] [address] [facility] [id number] [address] [place] [phone] 18 Aug, 2017 [facility] [address] [facility] [id number] [address] [place] [address] Aug, Bipolar I disorder, most rec ent episode (or current) mixed, moderate F31.62 [facility] [address] [facility] [id number] [address] [place] [phone] 07 Aug, 2017 Bipolar I disorder, most rec ent episode (or current) mixed, moderate F31.62 [facility] [address] [facility] [id number] [address] [place] [phone] 04 Aug, 2017 Chronic pain G89.29 [facility] [address] [facility] [id number] [address] [place] [phone] 30 Jul, 2017 Bipolar I disorder, most rec ent episode (or current) mixed, moderate F31.62 [facility] [address] [facility] [id number] [address] [place] [phone] 27 Jul, 2017 Bipolar I disorder, most rec ent episode (or current) mixed, moderate F31.62 and BMI 60.0-69.9, adult Z68.44 [facility] [address] [facility] [id number] [address] [place] [phone] 16 Jul, 2017 Bipolar I disorder, most rec ent episode (or current) mixed, moderate F31.62 [place] [address] [facility] [id number] [address] [place] [address] Jul, Chronic pain G89.29 [facility] [address] [facility] [id number] [address] [place] [address] Jul, Bipolar I disorder, most rec ent episode (or current) mixed, moderate F31.62 [facility] [address] [facility] [id number] [address] [place] [address] Jun, Polyneuropathy associated wi th underlying disease G63 and Diabetes E11.9 [facility] [address] [facility] [id number] [address] [place] [address] Jun, Bipolar I disorder, most rec ent episode (or current) mixed, moderate F31.62 [place] [address] [facility] [id number] [address] [place] [address] Jun, Chronic pain G89.29 [facility] [address] [facility] [id number] [address] [place] [address] May, Bipolar I disorder, most rec ent episode (or current) mixed, moderate F31.62 [place] [address] [facility] [id number] [address] [place] [address] May, Bipolar I disorder, most rec ent episode (or current) mixed, moderate F31.62 [place] [address] [facility] [id number] [address] [place] [address] May, Diabetic polyneuropathy asso ciated with type 2 diabetes mellitus E11.42 [facility] [address] [facility] [id number] [address] [place] [phone] 18 May, 2017 Bipolar I disorder, most rec ent episode (or current) mixed, moderate F31.62 [place] [address] [facility] [id number] [address] [place] [address] 13 May, 2017 Bipolar I disorder, most rec ent episode (or current) mixed, moderate F31.62 [place] [address] [place] [id number] [address] [place] [address] May, Chronic pain G89.29 [facility] [address] [id number] [address] [place] [phone] Apr, Bipolar I disorder, most rec ent episode (or current) mixed, moderate F31.62 [facility] [address] [id number] [address] [place] [id number] Apr, [facility] [address] [facility] [id number] [address] [place] [phone] Apr, Chronic pain G89.29 and DM n euro manif type II E11.49 [facility] [address] [id number] [address] [place] [phone] Apr, [facility] [address] [facility] [id number] [address] [place] [phone] Apr, Bipolar I disorder, most rec ent episode (or current) mixed, moderate F31.62 [facility] [address] [facility] [id number] [address] [place] [id number] Apr, Chronic pain G89.29 [facility] [address] [facility] [id number] [address] [place] [id number] Apr, Iliotibial band syndrome, le ft M76.32 [facility] [address] [facility] [id number] [address] [place] [phone] Apr, Bipolar I disorder, most rec ent episode (or current) mixed, moderate F31.62 [facility] [address] [facility] [id number] [address] [place] [id number] Mar, Bipolar I disorder, most rec ent episode (or current) mixed, moderate F31.62 [facility] [address] [facility] [id number] [address] [place] [phone] Mar, Bipolar I disorder, most rec ent episode (or current) mixed, moderate F31.62 [facility] [address] [facility] [id number] [address] [place] [phone] Mar, [facility] [address] [place] [id number] [address] [place] [phone] Mar, Bipolar I disorder, most rec ent episode (or current) mixed, moderate F31.62 [facility] [address] [facility] [id number] [address] [place] [phone] Mar, Chronic pain G89.29 [facility] [address] [facility] [id number] [address] [place] [phone] Mar, Bipolar I disorder, most rec ent episode (or current) mixed, moderate F31.62 [facility] [address] [facility] [id number] [address] [place] [phone] Mar, Bipolar I disorder, most rec ent episode (or current) mixed, moderate F31.62 [facility] [address] [facility] [id number] [address] [place] [phone] Mar, Acute pain of left knee M25. 562 ; Left hip pain M25.552 ; Generalized edema R60.1 and Tongue swelling R22.0 [facility] [address] [facility] [id number] [address] [place] [phone] Mar, [facility] [address] [facility] [id number] [address] [place] [phone] Feb, Chronic pain G89.29 [facility] [address] [facility] [id number] [address] [place] [phone] Feb, Diabetes E11.9 [facility] [address] [facility] [id number] [address] [place] [phone] January, Chronic pain G89.29 [facility] [address] [facility] [id number] [address] [place] [phone] January, [facility] [address] [facility] [id number] [address] [place] [phone] January, Bipolar I disorder, most rec ent episode (or current) mixed, moderate F31.62 [facility] [address] [facility] [id number] [address] [place] [phone] Dec, Bipolar I disorder, most rec ent episode (or current) mixed, moderate F31.62 [facility] [address] [facility] [id number] [address] [place] [phone] Dec, Chronic pain G89.29 [facility] [address] [facility] [id number] [address] [place] [phone] Dec, Bipolar I disorder, most rec ent episode (or current) mixed, moderate F31.62 [facility] [address] [facility] [id number] [address] [place] [phone] Dec, Diabetes E11.9 ; Essential h ypertension I10 ; Chronic pain G89.29 and Morbid obesity E66.01 [facility] [address] [facility] [id number] [address] [place] [phone] Dec, [facility] [address] [facility] [id number] [address] [place] [phone] Dec, Bipolar I disorder, most rec ent episode (or current) mixed, moderate F31.62 [facility] [address] [facility] [id number] [address] [place] [phone] Dec, Bipolar I disorder, most rec ent episode (or current) mixed, moderate F31.62 [facility] [address] [facility] [id number] [address] [place] [phone] Nov, Chronic pain G89.29 [facility] [address] [facility] [id number] [address] [place] [phone] Nov, Bipolar I disorder, most rec ent episode (or current) mixed, moderate F31.62 [facility] [address] [facility] [id number] [address] [place] [phone] Nov, [facility] [address] [facility] [id number] [address] [place] [phone] Nov, Bipolar I disorder, most rec ent episode (or current) mixed, moderate F31.62 [facility] [address] [facility] [id number] [address] [place] [phone] Nov, Bipolar I disorder, most rec ent episode (or current) mixed, moderate F31.62 [facility] [address] [facility] [id number] [address] [place] [phone] Nov, [facility] [address] [facility] [id number] [address] [place] [phone] Nov, [facility] [address] [facility] [id number] [address] [place] [phone] Nov, [facility] [address] [facility] [id number] [address] [place] [phone] Oct, Chronic pain G89.29 [facility] [address] [facility] [id number] [address] [place] [phone] Oct, Bipolar I disorder, most rec ent episode (or current) mixed, moderate F31.62 [facility] [address] [facility] [id number] [address] [place] [phone] Oct, [facility] [address] [facility] [id number] [address] [place] [phone] Oct, Chronic pain G89.29 ; Diabet es E11.9 ; Anxiety F41.9 and 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 [facility] [address] [facility] [id number] [address] [place] [phone] Oct, [facility] [address] [facility] [id number] [address] [place] [phone] Oct, Diabetes E11.9 [facility] [address] [facility] [id number] [address] [place] [phone] Oct, Bipolar I disorder, most rec ent episode (or current) mixed, moderate F31.62 [facility] [address] [facility] [id number] [address] [place] [phone] Sep, Chronic pain G89.29 [facility] [address] [facility] [id number] [address] [place] [phone] Sep, Chronic pain G89.29 [facility] [address] [id number] [address] [place] [phone] Aug, Chronic pain G89.29 [facility] [address] [id number] [address] [place] [id number] Jul, [facility] [address] [facility] [id number] [address] [place] [phone] Jul, Diabetes E11.9 [facility] [address] [id number] [address] [place] [phone] Jul, Chronic pain G89.29 [facility] [address] [id number] [address] [place] [phone] Jul, Bipolar I disorder, most rec ent episode (or current) mixed, moderate F31.62 [place] [address] [facility] [id number] [address] [place] [phone] Jun, Bipolar I disorder, most rec ent episode (or current) mixed, moderate F31.62 [facility] [address] [facility] [id number] [address] [place] [phone] Jun, [facility] [address] [facility] [id number] [address] [place] [phone] Jun, Bipolar I disorder, most rec ent episode (or current) mixed, moderate F31.62 [place] [address] [facility] [id number] [address] [place] [phone] 30 May, 2016 Insomnia, unspecified type G 47.00 [facility] [address] [id number] [address] [place] [phone] May, Bipolar I disorder, most rec ent episode (or current) mixed, moderate F31.62 [facility] [address] [facility] [id number] [address] [place] [phone] 14 May, 2016 [facility] [address] [facility] [id number] [address] [place] [phone] May, Bipolar I disorder, most rec ent episode (or current) mixed, moderate F31.62 [place] [address] [facility] [id number] [address] [place] [phone] May, Diabetes E11.9 and Essential hypertension I10 [facility] [address] [facility] [id number] [address] [place] [phone] Apr, Chronic pain G89.29 [place] [address] [facility] [id number] [address] [place] [phone] Apr, Bipolar I disorder, most rec ent episode (or current) mixed, moderate F31.62 [place] [address] [facility] [id number] [address] [place] [phone] Apr, [place] [address] [facility] [id number] [address] [place] [phone] Apr, [place] [address] [place] [id number] [address] [place] [phone] Mar, Chronic pain G89.29 ; Headac he, unspecified headache type R51 ; Neuropathy G62.9 ; Pain of right hip joint M25.551 and Essential hypertension I10 [place] [address] [facility] [id number] [address] [place] [address] Mar, Chronic pain G89.29 [place] [address] [facility] [id number] [address] [place] [phone] Mar, Bipolar I disorder, most rec ent episode (or current) mixed, moderate F31.62 [place] [address] [facility] [id number] [address] [place] [phone] Feb, Bipolar I disorder, most rec ent episode (or current) mixed, moderate F31.62 and Insomnia, unspecified type G47.00 [facility] [address] [facility] [id number] [address] [place] [phone] Feb, Chronic pain G89.29 [place] [address] [facility] [id number] [address] [place] [phone] Feb, Bipolar I disorder, most rec ent episode (or current) mixed, moderate F31.62 [facility] [address] [id number] [address] [place] [phone] January, Bipolar I disorder, most rec ent episode (or current) mixed, moderate F31.62 [facility] [address] [id number] [address] [place] [phone] January, Chronic pain G89.29 [facility] [address] [id number] [address] [place] [phone] January, Chronic pain G89.29 and Esse ntial hypertension I10 [facility] [address] [id number] [address] [place] [phone] January, Bipolar I disorder, most rec ent episode (or current) mixed, moderate F31.62 [facility] [address] [id number] [address] [place] [phone] Dec, [facility] [address] [id number] [address] [place] [phone] Dec, [facility] [address] [id number] [address] [place] [phone] Dec, [facility] [address] [facility] [id number] [address] [place] [phone] Dec, [facility] [address] [id number] [address] [place] [phone] Nov, Reactive airway disease J45. 909 [facility] [address] [id number] [address] [place] [phone] Nov, [facility] [address] [id number] [address] [place] [phone] Nov, [facility] [address] [id number] [address] [place] [phone] Nov, [facility] [address] [id number] [address] [place] [phone] Nov, [place] [address] [address] Nov, Onychomycosis B35.1 ; Hammer toe M20.40 ; [place] or callus L84 and DM neuro manif type II E11.49 [place] [address] [address] Nov, Chronic pain G89.29 ; Leukoc ytosis D72.829 and Diabetes E11.9 [place] [address] [address] Nov, [place] [address] [address] Oct, Bronchitis J40 [place] [address] [address] Oct, [place] [address] [address] Oct, [place] [address] [address] Oct, Mastoiditis, unspecified lat erality H70.90 and Type 2 diabetes mellitus with complication E11.8 [place] [address] [phone] Sep, [place] [address] [address] Sep, Dysuria R30.0 ; Cough R05 ; Benign prostatic hyperplasia with lower urinary tract symptoms, unspecified morphology N40.1 ; Hypokalemia E87.6 and Eustachian tube dysfunction, unspecified laterality H69.80 [place] [address] [address] Sep, Moderate mixed bipolar I dis order F31.[address] [address] Sep, Hypokalemia E87.6 [facility] [address] [id number] [address] [place] [phone] Sep, [facility] [address] [facility] [id number] [address] [place] [phone] Sep, Upper respiratory tract infe ction, unspecified type J06.9 [facility] [address] [facility] [id number] [address] [place] [phone] Aug, [facility] [address] [id number] [address] [place] [phone] Aug, Dysuria R30.0 [facility] [address] [facility] [id number] [address] [place] [phone] Aug, [facility] [address] [facility] [id number] [address] [place] [phone] Jul, [facility] [address] [facility] [id number] [address] [place] [phone] Jul, [facility] [address] [facility] [id number] [address] [place] [phone] Jul, [facility] [address] [facility] [id number] [address] [place] [phone] Jul, [facility] [address] [facility] [id number] [address] [place] [phone] Jun, [facility] [address] [id number] [address] [place] [phone] Jun, [facility] [address] [facility] [id number] [address] [place] [phone] Jun, [facility] [address] [facility] [id number] [address] [place] [phone] May, [facility] [address] [facility] [id number] [address] [place] [phone] May, Bipolar I disorder, most rec ent episode (or current) mixed, moderate 296.62 [facility] [address] [facility] [id number] [address] [place] [phone] May, [facility] [address] [facility] [id number] [address] [place] [phone] May, Bipolar I disorder, most rec ent episode (or current) mixed, moderate 296.62 and Major depressive disorder, recurrent episode, severe, specified as with psychotic behavior 296.34 [facility] [address] [facility] [id number] [address] [place] [phone] May, Bipolar I disorder, most rec ent episode (or current) mixed, moderate 296.62 [facility] [address] [facility] [id number] [address] [place] [phone] May, [facility] [address] [place] [id number] [address] [place] [phone] Apr, [facility] [address] [place] [place] [id number] [address] [place] [phone] Apr, [facility] [address] [place] [id number] [address] [place] [phone] Apr, Unspecified disorder of kidn ey and ureter 593.9 and Diabetes mellitus type 2, uncontrolled 250.02 [facility] [address] [place] [id number] [address] [place] [phone] Apr, [facility] [address] [facility] [id number] [address] [place] [phone] Apr, [facility] [address] [place] [id number] [address] [place] [phone] Apr, [facility] [address] [facility] [id number] [address] [place] [phone] Apr, [facility] [address] [place] [id number] [address] [place] [phone] Apr, Diabetes mellitus type II, u ncontrolled 250.02 [facility] [address] [facility] [id number] [address] [place] [phone] Apr, [facility] [address] [place] [id number] [address] [place] [phone] Mar, [facility] [address] [place] [id number] [address] [place] [phone] Mar, [facility] [address] [place] [id number] [address] [place] [phone] Mar, [facility] [address] [place] [id number] [place] [address] Mar, Major depressive disorder, r ecurrent episode, severe, specified as with psychotic behavior 296.34 and Bipolar I disorder, most recent episode (or current) mixed, moderate 296.62 [facility] [address] [place] [id number] [place] [address] Mar, Diabetes 250.00 ; Anuria 788 .5 ; Nausea and vomiting 787.01 and Diarrhea 787.91 [facility] [address] [place] [id number] [address] [place] [address] Mar, Diabetes 250.00 [facility] [address] [place] [id number] [address] [place] [phone] Mar, [facility] [address] [place] [id number] [address] [place] [phone] Mar, Diabetes 250.00 [facility] [address] [place] [id number] [address] [place] [phone] Mar, [facility] [address] [place] [id number] [address] [place] [phone] Mar, [facility] [address] [place] [id number] [address] [place] [phone] Mar, [facility] [address] [place] [id number] [address] [place] [phone] Mar, [facility] [address] [place] [id number] [address] [place] [phone] Mar, Bipolar I disorder, most rec ent episode (or current) mixed, moderate 296.62 and Major depressive disorder, recurrent episode, severe, specified as with psychotic behavior 296.[address] [address] Mar, Magnesium deficiency 275.2 ; Hypokalemia 276.8 ; Nausea & vomiting 787.01 and Diabetes mellitus type 2, uncontrolled 250.[address] [address] Feb, [address] [address] Feb, Bipolar I disorder, most rec ent episode (or current) mixed, moderate 296.[address] [address] Feb, Nausea and vomiting 787.01 ; Left elbow pain 719.42 ; Anuria 788.5 and Diabetes 250.[address] [address] Feb, [address] [address] Feb, Hypopotassemia 276.8 and Hyp okalemia 276.[address] [address] Feb, Hypopotassemia 276.8 and Hyp okalemia 276.[address] [address] Feb, Seborrheic keratoses 702.[address] [address] Feb, Hypopotassemia 276.8 and Low magnesium levels 275.[address] [address] January, [address] [address] January, [facility] [address] [id number] [address] [place] [phone] January, [facility] [address] [id number] [address] [place] [phone] January, Scalp lesion 709.9 [facility] [address] [id number] [address] [place] [phone] January, [facility] [address] [id number] [address] [place] [phone] Dec, Tear of medial cartilage or meniscus of knee, current 836.0 and 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 [facility] [address] [id number] [address] [place] [phone] Dec, [facility] [address] [id number] [address] [place] [phone] Dec, [facility] [address] [id number] [address] [place] [phone] Dec, Squamous cell carcinoma, 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 [facility] [address] [id number] [address] [place] [phone] Dec, [facility] [address] [id number] [address] [place] [phone] Dec, [facility] [address] [id number] [address] [place] [phone] Nov, [facility] [address] [id number] [address] [place] [phone] Nov, [facility] [address] [id number] [address] [place] [phone] Nov, [facility] [address] [id number] [address] [place] [phone] Nov, [facility] [address] [id number] [address] [place] [phone] Nov, [facility] [address] [id number] [address] [place] [address], [place] [address] Nov, 2014 [facility] [address] [id number] [address] [place] [address], [place] [id number] Nov, [facility] [address] [id number] [address] [place] [address], [place] [id number] Nov, 2014 [facility] [address] [id number] [address] [place] [address], [place] [id number] Nov, 2014 [facility] [address] [id number] [address] [place] [address], [place] [phone] Nov, 2014 [facility] [address] [id number] [address] [place] [address], [place] [id number] Nov, [facility] [address] [id number] [address] [place] [address], [place] [address] Nov, [facility] [address] [id number] [address] [place] [address], [place] [address] Oct, 2014 [facility] [address] [id number] [address] [place] [address], [place] [address] Oct, 2014 [facility] [address] [id number] [address] [place] [address], [place] [id number] Oct, 2014 [facility] [address] [id number] [address] [place] [id number] Oct, 2014 [facility] [address] [id number] [address] [place] [phone] Oct, 2014 [facility] [address] [id number] [address] [place] [address], [place] [id number] Oct, 2014 [facility] [address] [id number] [address] [place] [address], [place] [address] Oct, 2014 [facility] [address] [id number] [address] [place] [id number] Oct, 2014 [facility] [address] [id number] [address] [place] [phone] Oct, [facility] [address] [id number] [address] [place] [address], [place] [address] Sep, [facility] [address] [id number] [address] [place] [address], [place] [address] Sep, [facility] [address] [id number] [address] [place] [address], [place] [phone] Sep, [facility] [address] [id number] [address] [place] [address], [place] [address] Sep, [facility] [address] [id number] [address] [place] [address], [place] [address] Sep, [facility] [address] [id number] [address] [place] [address], [place] [id number] Sep, [facility] [facility] [address] [id number] [address] [place] [address], [place] [address] Sep, [facility] [address] [id number] [address] [place] [address], [place] [address] Sep, [facility] [address] [id number] [address] [place] [address], [place] [address] Sep, [facility] [address] [id number] [address] [place] [address], [place] [address] Sep, [facility] [address] [id number] [address] [place] [address], [place] [address] Sep, [facility] [address] [id number] [address] [place] [address], [place] [address] Sep, [facility] [address] [id number] [address] [place] [address], [place] [address] Sep, [facility] [address] [id number] [address] [place] [address], [place] [address] Sep, [facility] [address] [id number] [address] [place] [address], [place] [address] Sep, [facility] [address] [id number] [address] [place] [address], [place] [address] Sep, [facility] [address] [id number] [address] [place] [address], [place] [address] Aug, [facility] [address] [id number] [facility] [place] [address] Aug, [facility] [address] [id number] [address] [place] [address], [place] [address] Aug, [facility] [address] [id number] [address] [place] [address], [place] [address] Aug, [facility] [address] [id number] [address] [place] [address], [place] [address] Aug, [facility] [address] [id number] [address] [place] [address], [place] [address] Aug, [facility] [address] [id number] [address] [place] [address], [place] [address] Aug, [facility] [address] [id number] [address] [place] [address], [place] [address] Aug, [facility] [address] [id number] [address] [place] [address], [place] [address] Aug, [facility] [address] [id number] [address] [place] [address], [place] [address] Aug, [facility] [address] [id number] [address] [place] [address], [place] [address] Aug, [facility] [address] [place] [id number] Aug, [facility] [address] [id number] [address] [place] [address], [place] [address] Aug, [facility] [address] [id number] [address] [place] [address], [place] [address] Aug, [facility] [address] [id number] [address] [place] [address], [place] [address] Aug, [facility] [address] [id number] [address] [place] [address], [place] [address] Aug, [facility] [address] [id number] [address] [place] [address], [place] [address] Aug, [facility] [address] [id number] [address] [place] [address], [place] [address] Aug, [facility] [address] [id number] [address] [place] [address], [place] [address] Aug, [facility] [address] [id number] [address] [place] [address], [place] [address] Aug, [facility] [address] [id number] [address] [place] [address], [place] [address] Aug, [facility] [address] [id number] [address] [place] [address], [place] [address] Aug, [facility] [address] [id number] [address] [place] [address], [place] [address] Aug, [facility] [address] [id number] [address] [place] [address], [place] [address] Aug, [facility] [address] [id number] [address] [place] [address], [place] [address] Aug, [facility] [address] [id number] [address] [place] [address], [place] [address] Aug, [facility] [address] [id number] [address] [place] [address], [place] [address] Aug, [facility] [address] [id number] [address] [place] [address], [place] [address] Aug, [facility] [address] [id number] [address] [place] [address], [place] [address] Aug, [facility] [address] [id number] [address] [place] [address], [place] [address] Aug, [facility] [address] [id number] [address] [place] [address], [place] [address] Jul, [facility] [address] [id number] [address] [place] [address], [place] [address] Jul, [facility] [address] [id number] [address] [place] [address], [place] [address] Jul, [facility] [address] [id number] [address] [place] [address], [place] [address] Jul, [facility] [address] [id number] [address] [place] [address], [place] [address] Jul, [facility] [address] [id number] [address] [place] [address], [place] [address] Jul, [facility] [address] [id number] [address] [place] [address], [place] [address] Jul, [facility] [address] [id number] [address] [place] [address], [place] [address] Jul, [facility] [address] [id number] [address] [place] [address], [place] [address] Jul, [facility] [address] [id number] [address] [place] [address], [place] [address] Jul, [facility] [address] [id number] [address] [place] [address], [place] [address] Jun, [facility] [address] [id number] [address] [place] [address], [place] [address] Jun, [facility] [address] [id number] [address] [place] [address] 16 Jun, 2014 [facility] [address] [id number] [address] [place] [address], [place] [address] 16 Jun, 2014 [facility] [address] [id number] [address] [place] [address], [place] [address] 15 Jun, 2014 [facility] [address] [id number] [address] [place] [address], [place] [address] 15 Jun, 2014 [facility] [address] [id number] [address] [place] [address], [place] [address] 05 Jun, 2014 [facility] [address] [id number] [address] [place] [address], [place] [address] Jun, [facility] [address] [id number] [address] [place] [address], [place] [address] Jun, [facility] [address] [id number] [address] [place] [address], [place] [address] Jun, [facility] [address] [id number] [address] [place] [address], [place] [address] 29 May, 2013 [facility] [address] [id number] [address] [place] [address], [place] [address] 29 May, 2013 [facility] [address] [id number] [address] [place] [address], [place] [address] 26 May, 2013 [facility] [address] [id number] [address] [place] [address], [place] [address] 26 May, 2013 [facility] [address] [id number] [address] [place] [address], [place] [address] 17 May, 2013 [facility] [address] [id number] [address] [place] [address], [place] [address] 17 May, 2013 [facility] [address] [id number] [address] [place] [address], [place] [address] 15 May, 2013 [facility] [address] [id number] [address] [place] [address], [place] [address] 15 Sep, 2013 [facility] [address] [id number] [address] [place] [address], [place] [address] 15 Sep, 2013 [facility] [address] [id number] [address] [place] [address], [place] [address] 15 May, 2013 [facility] [address] [id number] [address] [place] [address], [place] [address] 10 May, 2013 [facility] [address] [id number] [address] [place] [address], [place] [address] May, [facility] [address] [id number] [facility] [place] [address] May, [facility] [address] [id number] [address] [place] [address], [place] [address] May, [facility] [address] [id number] [address] [place] [address], [place] [address] May, [facility] [address] [id number] [address] [place] [address], [place] [address] May, [facility] [address] [id number] [address] [place] [address], [place] [address] Apr, [facility] [address] [id number] [address] [place] [address], [place] [address] Apr, [facility] [address] [id number] [address] [place] [address], [place] [address] Apr, [facility] [address] [id number] [address] [place] [address], [place] [address] Apr, [facility] [address] [id number] [address] [place] [address], [place] [address] Apr, [facility] [address] [id number] [address] [place] [address], [place] [address] Apr, [facility] [address] [id number] [address] [place] [address], [place] [address] Apr, [facility] [address] [id number] [address] [place] [address], [place] [address] Apr, [facility] [address] [id number] [address] [place] [address], [place] [address] Apr, [facility] [address] [id number] [address] [place] [address], [place] [address] Apr, [facility] [address] [id number] [address] [place] [address], [place] [address] Apr, [facility] [address] [id number] [address] [place] [address], [place] [address] Apr, [facility] [address] [id number] [address] [place] [address], [place] [address] Apr, [facility] [address] [id number] [address] [place] [address], [place] [address] Apr, [facility] [address] [id number] [address] [place] [address], [place] [address] Apr, [facility] [address] [id number] [address] [place] [address], [place] [address] Mar, [facility] [address] [id number] [address] [place] [address], [place] [address] Mar, [facility] [address] [id number] [address] [place] [address], [place] [address] Mar, [facility] [address] [id number] [address] [place] [address], [place] [address] Mar, [facility] [address] [id number] [address] [place] [address], [place] [address] Mar, [facility] [address] [id number] [address] [place] [address], [place] [address] Mar, [facility] [address] [id number] [address] [place] [address], [place] [address] Mar, [facility] [address] [id number] [address] [place] [address], [place] [address] Mar, [facility] [address] [id number] [address] [place] [address], [place] [address] Mar, [facility] [address] [id number] [address] [place] [address], [place] [address] Mar, [facility] [address] [id number] [address] [place] [address], [place] [address] Mar, [facility] [address] [id number] [address] [place] [address], [place] [address] Mar, [facility] [address] [id number] [facility] [place] [address] Mar, 2013 [facility] [address] [id number] [facility] [place] [address] Mar, 2013 [facility] [address] [id number] [facility] [place] [address] Mar, 2013 [facility] [address] [id number] [facility] [place] [address] Mar, 2013 [facility] [address] [id number] [facility] [place] [address] Mar, 2013 [facility] [address] [id number] [address] [place] [address], [place] [address] Mar, [facility] [address] [id number] [address] [place] [address], [place] [address] Feb, [facility] [address] [id number] [address] [place] [address], [place] [address] Feb, [facility] [address] [id number] [address] [place] [address], [place] [address] Feb, [facility] [address] [id number] [address] [place] [address], [place] [address] Feb, [facility] [address] [id number] [address] [place] [address], [place] [address] Feb, [facility] [address] [id number] [address] [place] [address], [place] [address] Feb, [facility] [address] [id number] [address] [place] [address], [place] [address] Feb, [facility] [address] [id number] [address] [place] [address], [place] [address] Feb, [facility] [address] [id number] [address] [place] [address], [place] [address] Feb, [facility] [address] [id number] [address] [place] [address], [place] [address] Feb, [facility] [address] [id number] [facility] [place] [address] Feb, [facility] [address] [id number] [facility] [place] [address] Feb, [facility] [address] [id number] [facility] [place] [address] Feb, [facility] [address] [id number] [address] [place] [address], [place] [address] Feb, [facility] [address] [id number] [facility] [place] [address] January, [facility] [address] [id number] [address] [place] [address], [place] [address] January, [facility] [address] [id number] [address] [place] [address], [place] [address] January, [facility] [address] [id number] [address] [place] [address], [place] [address] January, [facility] [address] [id number] [address] [place] [address], [place] [address] January, [facility] [address] [id number] [address] [place] [address], [place] [address] January, [facility] [address] [id number] [address] [place] [address], [place] [address] January, [facility] [address] [id number] [address] [place] [address], [place] [address] January, [facility] [address] [id number] [address] [place] [address], [place] [address] January, [facility] [address] [id number] [address] [place] [address], [place] [address] January, [facility] [address] [id number] [facility] [place] [address] January, [facility] [address] [id number] [facility] [place] [address] January, [facility] [address] [id number] [address] [place] [address], [place] [address] January, [facility] [address] [id number] [address] [place] [address], [place] [address] January, [facility] [address] [id number] [address] [place] [address], [place] [address] Dec, [facility] [address] [id number] [address] [place] [address], [place] [address] Dec, [facility] [address] [id number] [address] [place] [address], [place] [address] Dec, [facility] [address] [id number] [address] [place] [address], [place] [address] Dec, [facility] [address] [id number] [address] [place] [address], [place] [address] Dec, [facility] [address] [id number] [address] [place] [address], [place] [address] Dec, [facility] [address] [id number] [address] [place] [address], [place] [address] Dec, [facility] [address] [id number] [address] [place] [address], [place] [address] Dec, [facility] [address] [id number] [address] [place] [address], [place] [address] Dec, [facility] [address] [id number] [address] [place] [address], [place] [address] Dec, [facility] [address] [id number] [address] [place] [address], [place] [address] Nov, [facility] [address] [id number] [address] [place] [address], [place] [address] Nov, [facility] [address] [id number] [address] [place] [address], [place] [address] Nov, [facility] [address] [id number] [facility] [place] [address] Nov, [facility] [address] [id number] [address] [place] [address], [place] [address] Nov, [facility] [address] [id number] [facility] [place] [address] Nov, [facility] [address] [id number] [address] [place] [address], [place] [address] Nov, [facility] [address] [id number] [address] [place] [address], [place] [address] Nov, [facility] [address] [id number] [address] [place] [address], [place] [address] Nov, [facility] [address] [id number] [address] [place] [address], [place] [address] Nov, [facility] [address] [id number] [address] [place] [address], [place] [address] Oct, [facility] [address] [id number] [address] [place] [address], [place] [address] Oct, [facility] [address] [id number] [address] [place] [address], [place] [address] Oct, [facility] [address] [id number] [address] [place] [address], [place] [address] Oct, [facility] [address] [id number] [address] [place] [address], [place] [address] Oct, [facility] [address] [id number] [address] [place] [address], [place] [address] Oct, [facility] [address] [id number] [address] [place] [address], [place] [address] 14 Oct, 2013 [facility] [address] [id number] [address] [place] [address], [place] [address] Oct, [facility] [address] [id number] [address] [place] [address], [place] [address] 05 Oct, 2013 [facility] [address] [id number] [address] [place] [address], [place] [address] Oct, [facility] [address] [id number] [address] [place] [address], [place] [phone] Oct, [facility] [address] [id number] [address] [place] [address], [place] [address] Oct, [facility] [address] [id number] [address] [place] [address], [place] [address] Oct, [facility] [address] [id number] [address] [place] [address], [place] [address] Oct, [facility] [address] [id number] [address] [place] [address], [place] [address] Sep, [facility] [address] [id number] [address] [place] [address], [place] [address] Sep, [facility] [address] [id number] [address] [place] [address], [place] [address] Sep, [facility] [address] [id number] [address] [place] [address], [place] [address] Sep, [facility] [address] [id number] [address] [place] [address], [place] [address] Sep, [facility] [address] [id number] [address] [place] [address], [place] [address] Sep, [facility] [address] [id number] [address] [place] [address], [place] [address] Sep, [facility] [address] [id number] [address] [place] [address], [place] [address] Sep, [facility] [address] [id number] [address] [place] [address], [place] [address] Sep, [facility] [address] [id number] [address] [place] [address], [place] [address] Sep, [facility] [address] [id number] [address] [place] [address], [place] [address] Aug, [facility] [address] [id number] [address] [place] [address], [place] [address] Aug, [facility] [address] [id number] [address] [place] [address], [place] [address] Jul, [facility] [address] [id number] [address] [place] [address], [place] [address] Jul, [facility] [address] [id number] [address] [place] [address], [place] [address] Jul, [facility] [address] [id number] [address] [place] [address], [place] [address] Jul, [facility] [address] [id number] [address] [place] [address], [place] [address] Jul, [facility] [address] [id number] [address] [place] [address], [place] [address] Jul, [facility] [address] [id number] [address] [place] [address], [place] [address] Jul, [facility] [address] [id number] [address] [place] [address], [place] [address] Jul, [facility] [address] [id number] [address] [place] [address], [place] [address] Jul, [facility] [address] [id number] [address] [place] [id number] Jul, [facility] [address] [id number] [address] [place] [address], [place] [address] Jul, [facility] [address] [id number] [address] [place] [address], [place] [address] Jul, [facility] [address] [id number] [address] [place] [address], [place] [address] Jul, [facility] [address] [id number] [address] [place] [address], [place] [address] 05 Jul, 2012 [facility] [address] [id number] [address] [place] [address], [place] [address] Jul, 2012 [facility] [address] [id number] [address] [place] [address], [place] [address] Jul, 2012 [facility] [address] [id number] [address] [place] [address], [place] [address] Jul, 2012 [facility] [address] [id number] [address] [place] [address], [place] [address] Jul, 2012 [facility] [address] [id number] [address] [place] [address], [place] [address] Jul, 2012 [facility] [address] [id number] [address] [place] [address], [place] [address] Jun, 2012 [facility] [address] [id number] [address] [place] [address], [place] [address] 16 Jun, 2012 [facility] [address] [id number] [address] [place] [address], [place] [address] Jun, 2012 [facility] [address] [id number] [address] [place] [address], [place] [address] Jun, 2012 [facility] [address] [id number] [address] [place] [address], [place] [address] 16 Jun, 2012 [facility] [address] [id number] [address] [place] [address], [place] [address] 16 Jun, 2012 [facility] [address] [id number] [address] [place] [id number] 10 Jun, 2012 [facility] [address] [id number] [address] [place] [address], [place] [address] 10 Jun, 2012 [facility] [address] [id number] [address] [place] [address], [place] [address] 09 Jun, 2012 [facility] [address] [id number] [address] [place] [id number] 09 Jun2012 [facility] [address] [id number] [address] [place] [address], [place] [address] Jun, [facility] [address] [id number] [address] [place] [address], [place] [address] May, 2012 [facility] [address] [id number] [address] [place] [address], [place] [address] 25 May, 2012 [facility] [address] [id number] [address] [place] [address], [place] [address] 19 May, 2012 [facility] [address] [id number] [address] [place] [address], [place] [address] 17 May, 2012 [facility] [address] [id number] [address] [place] [address], [place] [address] May, [facility] [facility] [address] [id number] [address] [place] [address], [place] [address] May, [facility] [address] [id number] [address] [place] [address], [place] [address] May, [facility] [address] [id number] [address] [place] [address], [place] [address] May, [facility] [address] [id number] [address] [place] [address], [place] [address] Apr, [facility] [address] [id number] [address] [place] [address], [place] [address] Apr, [facility] [address] [id number] [address] [place] [address], [place] [address] Apr, [facility] [address] [id number] [address] [place] [address], [place] [address] Apr, [facility] [address] [id number] [address] [place] [address], [place] [address] Apr, [facility] [address] [id number] [address] [place] [address], [place] [address] Mar, [facility] [address] [id number] [address] [place] [address], [place] [address] Mar, [facility] [address] [id number] [address] [place] [address], [place] [address] Mar, [facility] [address] [id number] [address] [place] [address], [place] [address] Mar, [facility] [address] [id number] [address] [place] [address], [place] [address] Mar, [facility] [address] [id number] [address] [place] [address], [place] [address] Mar, [facility] [address] [id number] [address] [place] [address], [place] [address] Mar, [facility] [address] [id number] [address] [place] [address], [place] [address] Mar, [facility] [address] [id number] [address] [place] [address], [place] [address] Feb, [facility] [address] [id number] [address] [place] [address], [place] [address] Feb, [facility] [address] [id number] [address] [place] [address], [place] [address] January, [facility] [address] [id number] [address] [place] [address], [place] [address] January, [facility] [address] [id number] [address] [place] [address], [place] [address] Dec, [facility] [address] [id number] [address] [place] [address], [place] [address] Dec, [facility] [address] [id number] [address] [place] [address], [place] [address] Nov, [facility] [address] [id number] [address] [place] [address], [place] [address] Nov, [facility] [address] [id number] [address] [place] [address], [place] [address] Nov, [facility] [address] [id number] [address] [place] [address], [place] [address] 14 Nov, 2012 [facility] [address] [id number] [address] [place] [address], [place] [address] Oct, [facility] [address] [id number] [address] [place] [address], [place] [address] Oct, [facility] [address] [id number] [address] [place] [address], [place] [address] Oct, [facility] [address] [id number] [address] [place] [address], [place] [address] Oct, [facility] [address] [id number] [address] [place] [address], [place] [address] 16 Oct, 2012 [facility] [address] [id number] [address] [place] [address], [place] [address] 14 Oct, 2012 [facility] [address] [id number] [address] [place] [address], [place] [address] 08 Oct, 2012 [facility] [address] [id number] [address] [place] [address], [place] [address] 07 Oct, 2012 [facility] [address] [id number] [address] [place] [address], [place] [address] 03 Oct, 2012 [facility] [address] [id number] [address] [place] [address], [place] [address] 30 Sep, 2012 [facility] [address] [id number] [address] [place] [address], [place] [address] Sep, [facility] [address] [id number] [address] [place] [address], [place] [address] Sep, [facility] [address] [id number] [address] [place] [address], [place] [address] Sep, [facility] [address] [id number] [address] [place] [address], [place] [address] 17 Sep, 2012 [facility] [address] [id number] [address] [place] [address], [place] [address] Sep, [facility] [address] [id number] [address] [place] [address], [place] [address] Sep, [facility] [address] [id number] [address] [place] [address], [place] [address] Sep, [facility] [address] [id number] [address] [place] [address], [place] [address] Aug, [facility] [address] [id number] [address] [place] [address], [place] [address] Aug, [facility] [address] [id number] [address] [place] [address], [place] [address] Aug, [facility] [address] [id number] [address] [place] [address], [place] [address] Aug, [facility] [address] [id number] [address] [place] [address], [place] [address] Aug, [facility] [address] [id number] [address] [place] [address], [place] [address] Aug, [facility] [address] [id number] [address] [place] [address], [place] [address] Aug, [facility] [address] [id number] [address] [place] [address], [place] [address] Aug, [facility] [address] [id number] [address] [place] [address], [place] [address] Jul, [facility] [address] [id number] [address] [place] [address], [place] [address] Jul, [facility] [address] [id number] [address] [place] [address], [place] [address] Jul, [facility] [address] [id number] [address] [place] [address], [place] [address] Jul, [facility] [address] [id number] [address] [place] [address], [place] [address] Jul, [facility] [address] [id number] [address] [place] [address], [place] [address] Jul, [facility] [address] [id number] [address] [place] [address], [place] [address] Jun, [facility] [address] [id number] [address] [place] [address], [place] [address] Jun, [facility] [address] [id number] [address] [place] [address], [place] [address] Jun, [facility] [address] [id number] [address] [place] [address], [place] [address] Jun, [facility] [address] [id number] [address] [place] [address], [place] [address] Jun, [facility] [address] [id number] [address] [place] [address], [place] [address] Jun, [facility] [address] [id number] [address] [place] [address], [place] [address] Jun, [facility] [address] [id number] [address] [place] [address], [place] [address] Jun, [facility] [address] [id number] [address] [place] [address], [place] [address] 10 Jun, 2012 [facility] [address] [id number] [address] [place] [address], [place] [address] 26 May, 2012 [facility] [address] [id number] [address] [place] [address], [place] [address] 24 May, 2012 [facility] [address] [id number] [address] [place] [address], [place] [address] 18 May, 2012 [facility] [address] [id number] [address] [place] [address], [place] [address] 30 Apr, 2012 [facility] [address] [id number] [address] [place] [address], [place] [address] Apr, [facility] [address] [id number] [address] [place] [address], [place] [address] Apr, [facility] [address] [id number] [address] [place] [address], [place] [address] Apr, [facility] [address] [id number] [address] [place] [address], [place] [address] Apr, [facility] [address] [id number] [address] [place] [address], [place] [address] Apr, [facility] [address] [id number] [address] [place] [address], [place] [address] Mar, [facility] [address] [id number] [address] [place] [address], [place] [address] Mar, [facility] [address] [id number] [address] [place] [address], [place] [address] Mar, [facility] [address] [id number] [address] [place] [address], [place] [address] Mar, [facility] [address] [id number] [address] [place] [address], [place] [address] Feb, [facility] [address] [id number] [address] [place] [address], [place] [address] Feb, [facility] [address] [id number] [address] [place] [address], [place] [address] Feb, [facility] [address] [id number] [address] [place] [address], [place] [address] Feb, [facility] [address] [id number] [address] [place] [address], [place] [address] Feb, [facility] [address] [id number] [address] [place] [address], [place] [address] January, [facility] [address] [id number] [address] [place] [address], [place] [address] January, [facility] [address] [id number] [address] [place] [address], [place] [address] January, [facility] [address] [id number] [address] [place] [address], [place] [address] January, [facility] [address] [id number] [address] [place] [address], [place] [address] January, [facility] [address] [id number] [address] [place] [address], [place] [address] January, [facility] [address] [id number] [address] [place] [address], [place] [address] Dec, [facility] [address] [id number] [address] [place] [address], [place] [address] Dec, [facility] [address] [id number] [address] [place] [address], [place] [address] Dec, [facility] [address] [id number] [address] [place] [address], [place] [address] Dec, [facility] [address] [id number] [address] [place] [address], [place] [address] Dec, [facility] [address] [id number] [address] [place] [address], [place] [address] Nov, [facility] [address] [id number] [address] [place] [address], [place] [address] Nov, [facility] [address] [id number] [address] [place] [address], [place] [address] Nov, [facility] [address] [id number] [address] [place] [address], [place] [address] Nov, [facility] [address] [id number] [address] [place] [address], [place] [address] Oct, [facility] [address] [id number] [address] [place] [address], [place] [address] Oct, [facility] [address] [id number] [address] [place] [address], [place] [address] 24 Oct, 2011 [facility] [address] [id number] [address] [place] [address], [place] [address] 13 Oct, 2011 [facility] [address] [id number] [address] [place] [address], [place] [address] Oct, [facility] [address] [id number] [address] [place] [address], [place] [address] Sep, [facility] [address] [id number] [address] [place] [address], [place] [address] Sep, [facility] [address] [id number] [address] [place] [address], [place] [address] Sep, [facility] [address] [id number] [address] [place] [address], [place] [address] Sep, [facility] [address] [id number] [address] [place] [address], [place] [address] Sep, [facility] [address] [id number] [address] [place] [address], [place] [address] Sep, [facility] [address] [id number] [address] [place] [address], [place] [address] Aug, [facility] [address] [id number] [address] [place] [address], [place] [address] Aug, [facility] [address] [id number] [address] [place] [address], [place] [address] Aug, [facility] [address] [id number] [address] [place] [address], [place] [address] Jul, [facility] [address] [id number] [address] [place] [address], [place] [address] Jul, [facility] [address] [id number] [address] [place] [address], [place] [address] Jul, [facility] [address] [id number] [address] [place] [address], [place] [address] Jul, [facility] [address] [id number] [address] [place] [address], [place] [address] Jun, [facility] [address] [id number] [address] [place] [address], [place] [address] 31 Jun, 2011 [facility] [address] [id number] [address] [place] [address], [place] [address] 18 Jun, 2011 [facility] [address] [id number] [address] [place] [address], [place] [address] 10 Jun, 2011 [facility] [address] [id number] [address] [place] [address], [place] [address] 10 Jun, 2011 [facility] [address] [id number] [address] [place] [address], [place] [address] 10 Jun, 2011 [facility] [address] [id number] [address] [place] [address], [place] [address] 11 Mar, 2011 [facility] [address] [id number] [address] [place] [address], [place] [address] 18 Dec, 2010 [facility] [address] [id number] [address] [place] [address], [place] [address] 11 Dec, 2010 [facility] [address] [id number] [address] [place] [address], [place] [address] 18 Nov, 2010 [facility] [address] [id number] [address] [place] [address], [place] [address] 16 Nov, 2010 [facility] [address] [id number] [address] [place] [address], [place] [address] Sep, [facility] [address] [id number] [address] [place] [address], [place] [address] 31 Aug, 2010 [facility] [address] [id number] [address] [place] [address], [place] [address] Aug, [facility] [address] [id number] [address] [place] [address], [place] [address] Aug, [facility] [address] [id number] [address] [place] [address], [place] [address] Aug, [facility] [address] [id number] [address] [place] [address], [place] [address] Aug, [facility] [address] [id number] [address] [place] [address], [place] [address] 14 Aug, 2010 [facility] [address] [id number] [address] [place] [address], [place] [address] 08 Aug, 2010 [facility] [address] [id number] [address] [place] [address], [place] [address] 08 Aug, 2010 [facility] [address] [id number] [address] [place] [address], [place] [address] 07 Aug, 2010 [facility] [address] [id number] [address] [place] [address], [place] [address] 06 Aug, 2010 [facility] [address] [id number] [address] [place] [address], [place] [address] Aug, [facility] [address] [id number] [address] [place] [address], [place] [address] Aug, [facility] [address] [id number] [address] [place] [address], [place] [address] Jul, [facility] [address] [id number] [address] [place] [address], [place] [address] 30 Jul, 2010 [facility] [address] [id number] [address] [place] [address], [place] [address] Jul, [facility] [address] [id number] [address] [place] [address], [place] [address] 17 Jul, 2010 [facility] [address] [id number] [address] [place] [address], [place] [address] Jul, [facility] [address] [id number] [address] [place] [address], [place] [address] Jul, [facility] [address] [id number] [address] [place] [address], [place] [address] Jun, [facility] [address] [id number] [address] [place] [address], [place] [address] Jun, [facility] [address] [id number] [address] [place] [address], [place] [address] Jun, [facility] [address] [id number] [address] [place] [address], [place] [address] 13 Jun, 2010 [facility] [address] [id number] [address] [place] [address], [place] [address] 16 Apr, 2010 [facility] [address] [id number] [address] [place] [address], [place] [address] Mar, [facility] [address] [id number] [address] [place] [address], [place] [address] Feb, [facility] [address] [id number] [address] [place] [address], [place] [address] January, [facility] [address] [id number] [address] [place] [address], [place] [address] 15 Dec, 2009 [facility] [address] [id number] [address] [place] [address], [place] [address] Nov, [facility] [address] [id number] [address] [place] [id number] Aug, [facility] [address] [id number] [address] [place] [address], [place] [address] Aug, [facility] [address] [id number] [address] [place] [id number] Aug, [facility] [address] [id number] [address] [place] [id number] Jul, [facility] [address] [id number] [address] [place] [id number] Jul, [facility] [address] [id number] [address] [place] [phone] Jul, [facility] [address] [id number] [address] [place] [phone] 30 Jun, 2009 [facility] [address] [id number] [address] [place] [phone] 29 Jun, 2009 [facility] [address] [id number] [address] [place] [phone] Jun, [facility] [address] [facility] [id number] [address] [place] [phone] Jun, [facility] [address] [facility] [id number] [address] [place] [phone] Jun, [facility] [address] [facility] [id number] [address] [place] [phone] Jun, [facility] [address] [facility] [id number] [address] [place] [phone] Apr, [facility] [address] [facility] [id number] [address] [place] [phone] Apr, [facility] [address] [facility] [id number] [address] [place] [phone] Feb, [facility] [address] [facility] [id number] [address] [place] [phone] January, [facility] [address] [facility] [id number] [address] [place] [phone] Dec, IMMUNIZATIONS No Known Immunizations SOCIAL HISTORY [...] Medical History skin cancer-basal cell R 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
--- OUTSIDE RECORDS SUMMARY | 2020-03-01 17:24 | XMS REPORT ---
Author Author Michele WASHBURN Organization [facility] [place] Address [address] [place] [address] Care Team Providers Care Level Vial Inspector And Tester Name Role Phone NOEMI WASHBURN Unavailable PROBLEMS Type Condition ICD9-CM Code [id number] Code Onset Dates Condition S tatus SNOMED Code Problem Cough R05 Active 84954523 Problem Benign prostatic hyperplasia with lower urinary tract symptoms, unspecified morphology N40.1 Active 24532 6007 Problem Eustachian tube dysfunction, unspecified laterality H69.80 Active 76662958 Problem Chronic pain G89.29 Active 7767120 1 Problem DM neuro manif type II E11.49 Active 31679804 Problem Diabetes E11.9 Active 14664051 Problem Leukocytosis D72.829 Active 5637416 06 Problem Falling R29.6 Active 333141088 Problem Pressure ulcer of other site, stage 3 L89.893 Active 129183410 Problem 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 Active 611204848 Problem Eye exam abnormal R93.8 Active 16 1768621 Problem Dysuria R30.0 Active 52359793 Problem Hypokalemia E87.6 Active 00256520 Problem Morbid obesity E66.01 Active 54111 6002 Problem Anxiety F41.9 Active 75057412 Problem Diabetic polyneuropathy associated with type 2 d iabetes mellitus E11.42 Active 27081791 Problem Essential hypertension I10 Active 62224846 Problem Bilateral primary osteoarthritis of knee M17.0 Active 983638844 Problem Polyneuropathy associated with underlying disease G63 Active 368977843 Problem Anemia of chronic illness D63.8 Acti ve 306969117 Problem Lymphocytosis D72.820 Active 479553 09 Problem Retinal edema H35.81 Active 368306 6 Problem Chronic lymphocytic leukemia C91.10 A ctive 76420920 Problem Bipolar disorder, in partial remission, most rec ent episode depressed F31.75 Active 07535745 Problem Pure hypercholesterolemia E78.00 Acti ve 810075236 Problem Primary osteoarthritis of right knee M17.11 Active 265373692980885 Problem Bipolar disorder F31.9 Active 137 78282 Problem Bipolar I disorder, most recent episode (or curr ent) mixed, moderate F31.62 Active 56756214 Problem Chronic diastolic (congestive) heart failure I50.3 2 Active 515356146 Problem Reactive airway disease J45.909 Active 179222287200 Problem Insomnia, unspecified type G47.00 Act sharon 495903937 Problem Other chronic pain G89.29 Active 8 5475899 Problem Other iron deficiency anemia D50.8 A ctive 72468796 Problem Mild cognitive impairment G31.84 Acti ve 929241410 Problem Skin cancer C44.90 Active 77544158 7 ALLERGIES No Information ENCOUNTERS Encounter Location Date Diagnosis [place] [address] [facility] [id number] [address] [place] [id number] Mar, [place] [address] [place] [id number] [address] [place] [phone] Mar, [place] [address] [facility] [id number] [address] [place] [id number] Mar, Bipolar disorder F31.9 and C hronic pain G89.29 [place] [address] [facility] [id number] [address] [place] [id number] 24 Feb, 2019 Bipolar disorder F31.9 [facility] [place] [address] [facility] [id number] [address] [place] [id number] 17 Feb, 2019 Cellulitis of right upper ex tremity L03.113 and Skin abrasion T14.8XXA [facility] [place] [address] [facility] [id number] [address] [place] [id number] 17 Feb, 2019 Bipolar disorder, in partial remission, most recent episode depressed F31.75 and Mild cognitive impairment G31.84 [place] [address] [facility] [id number] [address] [place] [address] 13 Feb, 2019 Chronic pain G89.29 [place] [address] [facility] [id number] [address] [place] [id number] 03 Feb, 2019 Bipolar disorder, in partial remission, most recent episode depressed F31.75 and Mild cognitive impairment G31.84 [facility] [place] [address] [id number] [address] [place] [id number] January, Bipolar disorder, in partial remission, most recent episode depressed F31.75 and Mild cognitive impairment G31.84 [facility] [place] [address] [id number] [address] [place] [id number] January, Chronic pain G89.29 and Bipo lar disorder F31.9 [facility] [place] [address] [id number] [address] [place] [address] January, Bipolar disorder, in partial remission, most recent episode depressed F31.75 and Mild cognitive impairment G31.84 [facility] [place] [address] [id number] [address] [place] [id number] Dec, [facility] [place] [address] [id number] [address] [place] [address] Dec, Chronic pain G89.29 and Bipo lar disorder F31.9 [facility] [place] [address] [id number] [address] [place] [phone] Dec, Edema of both lower extremit ies R60.0 [facility] [place] [address] [id number] [address] [place] [phone] Dec, Bipolar disorder F31.9 [facility] [place] [address] [id number] [address] [place] [phone] Dec, Bipolar disorder, in partial remission, most recent episode depressed F31.75 and Mild cognitive impairment G31.84 [facility] [place] [address] [id number] [address] [place] [phone] Nov, [facility] [place] [address] [id number] [address] [place] [id number] Nov, Chronic pain G89.29 [facility] [place] [address] [id number] [address] [place] [id number] Nov, Bipolar disorder, in partial remission, most recent episode depressed F31.75 and Mild cognitive impairment G31.84 [place] [address] [place] [id number] [address] [place] [id number] Nov, Bipolar disorder F31.9 [place] [address] [place] [id number] [address] [place] [id number] 04 Nov, 2018 [facility].00 ; Polyneuropathy associated with [...] unspecified morphology N40.1 and Essential hypertension I10 [place] [address] [place] [id number] [place] [address] Oct, Chronic pain G89.29 [place] [id number] [place] [id number] 18 Oct, 2018 Diabetes E11.9 [place] [address] [place] [id number] [address] [place] [address] Oct, Bipolar I disorder, most rec ent episode (or current) mixed, moderate F31.62 and Mild cognitive impairment G31.84 [place] [id number] [place] [address] Oct, Bipolar I disorder, most rec ent episode (or current) mixed, moderate F31.62 and Mild cognitive impairment G31.84 [place] [address] [place] [id number] [address] [place] [id number] Sep, Bipolar I disorder, most rec ent episode (or current) mixed, moderate F31.62 and Mild cognitive impairment G31.84 [place] [address] [place] [id number] [address] [place] [id number] Sep, [facility] [place] [address] [id number] [address] [place] [address] Sep, Diabetes E11.9 ; Hypoxia R09 .02 ; Hyperglycemia R73.9 ; Therapeutic drug monitoring Z51.81 ; BMI 50.0-59.9, adult Z68.43 and Skin cancer C44.90 [place] [address] [facility] [id number] [address] [place] [phone] Sep, Chronic pain G89.29 [place] [address] [id number] [address] [place] [phone] Sep, Bipolar I disorder, most rec ent episode (or current) mixed, moderate F31.62 [place] [address] [facility] [id number] [address] [place] [phone] Sep, [place] [address] [facility] [id number] [address] [place] [phone] Sep, [place] [address] [facility] [id number] [address] [place] [address] Aug, Chronic pain G89.29 [place] [address] [id number] [address] [place] [phone] Aug, Bipolar I disorder, most rec ent episode (or current) mixed, moderate F31.62 [place] [address] [facility] [id number] [address] [place] [phone] Aug, Bipolar I disorder, most rec ent episode (or current) mixed, moderate F31.62 and Mild cognitive impairment G31.84 [place] [address] [id number] [address] [place] [id number] Jul, [place] [address] [facility] [id number] [address] [place] [address] Jul, Chronic pain G89.29 [facility] [place] [address] [id number] [address] [place] [phone] Jul, Bipolar I disorder, most rec ent episode (or current) mixed, moderate F31.62 and Mild cognitive impairment G31.84 [facility] [place] [address] [facility] [id number] [address] [place] [address] Jul, Bipolar I disorder, most rec ent episode (or current) mixed, moderate F31.62 and MCI (mild cognitive impairment) G31.84 [facility] [place] [address] [facility] [id number] [address] [place] [phone] Jul, [facility] [place] [address] [facility] [id number] [address] [place] [phone] Jul, [place] [address] [facility] [id number] [address] [place] [id number] Jul, Bipolar I disorder, most rec ent episode (or current) mixed, moderate F31.62 [place] [address] [facility] [id number] [address] [place] [address] Jul, Chronic pain G89.29 [place] [address] [facility] [id number] [address] [place] [id number] Jun, Bipolar I disorder, most rec ent episode (or current) mixed, moderate F31.62 [place] [address] [place] [id number] [address] [place] [address] Jun, Pre-procedure lab exam Z01.8 12 [place] [address] [place] [id number] [address] [place] [phone] Jun, [facility] [address] [id number] [place] [id number] Jun, [place] [address] [facility] [id number] [address] [place] [phone] Jun, [place] [address] [place] [id number] [address] [place] [address] Jun, Forgetfulness R68.89 ; Pre-s yncope R55 ; Localized edema R60.0 ; Other iron deficiency anemia D50.8 and BMI 50.0-59.9, adult Z68.43 [place] [address] [place] [id number] [address] [place] [address] 05 Jun, 2018 Chronic pain G89.29 [facility] [place] [address] [place] [id number] [address] [place] [id number] 05 Jun, 2018 Chronic pain G89.29 [facility] [place] [address] [place] [id number] [address] [place] [phone] Jun, Bipolar I disorder, most rec ent episode (or current) mixed, moderate F31.62 [facility] [place] [address] [place] [id number] [address] [place] [address] May, Chronic pain G89.29 [facility] [place] [address] [address] Apr, [place] [address] [place] [id number] [place] [address] Apr, Chronic pain G89.29 [place] [address] [address] Apr, Primary osteoarthritis of ri t knee M17.11 [place] [address] [address] Mar, [place] [address] [address] Mar, BMI 50.0-59.9, adult Z68.43 and Bipolar disorder, in partial remission, most recent episode depressed F31.75 [place] [address] [place] [id number] [address] [place] [address] Mar, Diabetes E11.9 ; Pure hyperc holesterolemia E78.00 ; Essential hypertension I10 ; Nausea with vomiting, unspecified R11.2 and Headache, unspecified headache type R51 [place] [address] [place] [id number] [place] [address] Mar, Bipolar I disorder, most rec ent episode (or current) mixed, moderate F31.62 [place] [address] [address] Mar, Bipolar I disorder, most rec ent episode (or current) mixed, moderate F31.62 [facility] [place] [address] [facility] [id number] [address] [place] [id number] Mar, Chronic pain G89.29 [facility] [place] [address] [facility] [id number] [address] [place] [phone] Mar, Bipolar I disorder, most rec ent episode (or current) mixed, moderate F31.62 [place] [address] [facility] [id number] [address] [place] [phone] Feb, Bipolar I disorder, most rec ent episode (or current) mixed, moderate F31.62 [place] [address] [place] [id number] [address] [place] [address] Feb, Chronic pain G89.29 [place] [address] [place] [id number] [address] [place] [id number] Feb, Decubitus ulcer of right josselin t, stage 3 L89.893 and BMI 50.0-59.9, adult Z68.43 [place] [address] [facility] [id number] [address] [place] [id number] Feb, Bipolar I disorder, most rec ent episode (or current) mixed, moderate F31.62 [place] [address] [facility] [id number] [address] [place] [address] Feb, [facility] [place] [address] [facility] [id number] [address] [place] [address] January, [facility] [place] [address] [facility] [id number] [address] [place] [id number] January, Chronic pain G89.29 [facility] [place] [address] [facility] [id number] [address] [place] [id number] January, Bipolar I disorder, most rec ent episode (or current) mixed, moderate F31.62 [place] [address] [facility] [id number] [address] [place] [phone] January, Bipolar I disorder, most rec ent episode (or current) mixed, moderate F31.62 [place] [address] [facility] [id number] [address] [place] [address] Dec, Bipolar I disorder, most rec ent episode (or current) mixed, moderate F31.62 and BMI 50.0-59.9, adult Z68.43 [place] [address] [place] [id number] [address] [place] [address] Dec, Bipolar I disorder, most rec ent episode (or current) mixed, moderate F31.62 [place] [address] [facility] [id number] [address] [place] [id number] Dec, Chronic pain G89.29 [place] [address] [facility] [id number] [address] [place] [address] Dec, DM neuro manif type II E11.4 9 ; Right flank pain R10.9 ; 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 ; Encounter for medication monitoring Z51.81 and BMI 50.0-59.9, adult Z68.43 [place] [address] [place] [id number] [address] [place] [address] Dec, Bipolar I disorder, most rec ent episode (or current) mixed, moderate F31.62 [place] [address] [place] [id number] [address] [place] [id number] Nov, Bipolar I disorder, most rec ent episode (or current) mixed, moderate F31.62 [place] [address] [facility] [id number] [address] [place] [address] Nov, Chronic pain G89.29 [place] [address] [place] [id number] [address] [place] [address] Nov, Bipolar I disorder, most rec ent episode (or current) mixed, moderate F31.62 [place] [address] [facility] [id number] [address] [place] [address] Nov, Hypokalemia E87.6 [place] [address] [place] [id number] [address] [place] [address] Nov, Bipolar I disorder, most rec ent episode (or current) mixed, moderate F31.62 [place] [address] [place] [id number] [place] [address] Oct, Chronic pain G89.29 [place] [address] [address] Oct, BMI 50.0-59.9, adult Z68.43 and Bipolar I disorder, most recent episode (or current) mixed, moderate F31.62 [place] [address] [address] Oct, Bipolar I disorder, most rec ent episode (or current) mixed, moderate F31.62 [place] [address] [address] Oct, [place] [address] [address] Oct, Hypokalemia E87.6 [place] [address] [address] Oct, DM neuro manif type II E11.4 9 [place] [address] [address] Oct, Bipolar I disorder, most rec ent episode (or current) mixed, moderate F31.62 [place] [address] [place] [id number] [address] [place] [address] Oct, Bipolar I disorder, most rec ent episode (or current) mixed, moderate F31.62 [place] [address] [place] [id number] [address] [place] [address] 14 Oct, 2017 Hyperkalemia E87.5 ; Falling R29.6 ; BMI 50.0-59.9, adult Z68.43 and Acute left ankle pain M25.572 [place] [address] [place] [id number] [address] [place] [address] 08 Oct, 2017 DM neuro manif type II E11.4 9 [place] [id number] [place] [address] Oct, [place] [address] [place] [id number] [place] [address] Sep, Chronic pain G89.29 [place] [address] [address] Sep, [place] [address] [address] Sep, Bilateral primary osteoarthr itis of knee M17.0 [place] [address] [address] Sep, Generalized edema R60.1 [place] [address] [address] 16 Sep, 2017 Bipolar I disorder, most rec ent episode (or current) mixed, moderate F31.62 [place] [address] [address] 15 Sep, 2017 Hypoxia R09.02 ; Other hyper volemia E87.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 ; Anemia of chronic illness D63.8 and BMI 50.0- 59.9, adult Z68.43 [place] [address] [place] [id number] [address] [place] [address] Sep, [address] [address] Sep, Bipolar I disorder, most rec ent episode (or current) mixed, moderate F31.62 [place] [address] [address] Aug, Chronic pain G89.29 [facility] [place] [address] [facility] [id number] [address] [place] [address] Aug, Generalized edema R60.1 [facility] [place] [address] [facility] [id number] [address] [place] [address] Aug, [facility] [place] [address] [facility] [id number] [address] [place] [address] Aug, [facility] [place] [address] [facility] [id number] [address] [place] [id number] 14 Aug, 2017 Bipolar I disorder, most rec ent episode (or current) mixed, moderate F31.62 [place] [address] [facility] [id number] [address] [place] [phone] Aug, Bipolar I disorder, most rec ent episode (or current) mixed, moderate F31.62 [place] [address] [facility] [id number] [address] [place] [id number] 04 Aug, 2017 Chronic pain G89.29 [facility] [place] [address] [facility] [id number] [address] [place] [id number] 30 Jul, 2017 Bipolar I disorder, most rec ent episode (or current) mixed, moderate F31.62 [facility] [place] [address] [facility] [id number] [address] [place] [id number] Jul, Bipolar I disorder, most rec ent episode (or current) mixed, moderate F31.62 and BMI 60.0-69.9, adult Z68.44 [facility] [place] [address] [facility] [id number] [address] [place] [id number] 16 Jul, 2017 Bipolar I disorder, most rec ent episode (or current) mixed, moderate F31.62 [place] [address] [facility] [id number] [address] [place] [id number] 06 Jul, 2017 Chronic pain G89.29 [facility] [place] [address] [facility] [id number] [address] [place] [phone] 02 Jul, 2017 Bipolar I disorder, most rec ent episode (or current) mixed, moderate F31.62 [facility] [place] [address] [id number] [address] [place] [id number] 18 Jun, 2017 Polyneuropathy associated wi th underlying disease G63 and Diabetes E11.9 [facility] [place] [address] [id number] [address] [place] [phone] 16 Jun, 2017 Bipolar I disorder, most rec ent episode (or current) mixed, moderate F31.62 [facility] [place] [address] [id number] [address] [place] [phone] Jun, Chronic pain G89.29 [facility] [place] [address] [id number] [address] [place] [phone] May, Bipolar I disorder, most rec ent episode (or current) mixed, moderate F31.62 [facility] [place] [address] [facility] [id number] [address] [place] [phone] 21 May, 2017 Bipolar I disorder, most rec ent episode (or current) mixed, moderate F31.62 [facility] [place] [address] [id number] [address] [place] [phone] 20 May, 2017 Diabetic polyneuropathy asso ciated with type 2 diabetes mellitus E11.42 [facility] [place] [address] [id number] [address] [place] [id number] 18 May, 2017 Bipolar I disorder, most rec ent episode (or current) mixed, moderate F31.62 [facility] [place] [address] [facility] [id number] [address] [place] [phone] 13 May, 2017 Bipolar I disorder, most rec ent episode (or current) mixed, moderate F31.62 [facility] [place] [address] [id number] [address] [place] [phone] May, Chronic pain G89.29 [facility] [place] [address] [facility] [id number] [address] [place] [phone] Apr, Bipolar I disorder, most rec ent episode (or current) mixed, moderate F31.62 [facility] [place] [address] [facility] [id number] [address] [place] [id number] Apr, [facility] [place] [address] [id number] [address] [place] [phone] Apr, Chronic pain G89.29 and DM n euro manif type II E11.49 [facility] [place] [address] [facility] [id number] [address] [place] [id number] Apr, [facility] [place] [address] [facility] [id number] [address] [place] [phone] Apr, Bipolar I disorder, most rec ent episode (or current) mixed, moderate F31.62 [facility] [place] [address] [facility] [id number] [address] [place] [phone] Apr, Chronic pain G89.29 [facility] [place] [address] [facility] [id number] [address] [place] [id number] Apr, Iliotibial band syndrome, le ft M76.32 [facility] [place] [address] [facility] [id number] [address] [place] [phone] Apr, Bipolar I disorder, most rec ent episode (or current) mixed, moderate F31.62 [facility] [place] [address] [facility] [id number] [address] [place] [phone] Mar, Bipolar I disorder, most rec ent episode (or current) mixed, moderate F31.62 [facility] [place] [address] [facility] [id number] [address] [place] [phone] Mar, Bipolar I disorder, most rec ent episode (or current) mixed, moderate F31.62 [facility] [place] [address] [facility] [id number] [address] [place] [id number] Mar, [facility] [place] [address] [facility] [id number] [address] [place] [phone] Mar, Bipolar I disorder, most rec ent episode (or current) mixed, moderate F31.62 [facility] [place] [address] [facility] [id number] [address] [place] [phone] Mar, Chronic pain G89.29 [facility] [place] [address] [id number] [address] [place] [id number] Mar, Bipolar I disorder, most rec ent episode (or current) mixed, moderate F31.62 [facility] [place] [address] [id number] [address] [place] [phone] Mar, Bipolar I disorder, most rec ent episode (or current) mixed, moderate F31.62 [facility] [place] [address] [id number] [address] [place] [id number] Mar, Acute pain of left knee M25. 562 ; Left hip pain M25.552 ; Generalized edema R60.1 and Tongue swelling R22.0 [facility] [place] [address] [id number] [address] [place] [phone] Mar, [facility] [place] [address] [id number] [address] [place] [phone] Feb, Chronic pain G89.29 [facility] [place] [address] [id number] [address] [place] [id number] Feb, Diabetes E11.9 [facility] [place] [address] [id number] [address] [place] [id number] January, Chronic pain G89.29 [facility] [place] [address] [facility] [id number] [address] [place] [id number] January, [facility] [place] [address] [id number] [address] [place] [id number] January, Bipolar I disorder, most rec ent episode (or current) mixed, moderate F31.62 [facility] [place] [address] [id number] [address] [place] [phone] Dec, Bipolar I disorder, most rec ent episode (or current) mixed, moderate F31.62 [facility] [place] [address] [facility] [id number] [address] [place] [id number] Dec, Chronic pain G89.29 [facility] [place] [address] [id number] [address] [place] [phone] Dec, Bipolar I disorder, most rec ent episode (or current) mixed, moderate F31.62 [facility] [place] [address] [place] [id number] [address] [place] [id number] Dec, Diabetes E11.9 ; Essential h ypertension I10 ; Chronic pain G89.29 and Morbid obesity E66.01 [facility] [place] [address] [place] [id number] [address] [place] [id number] Dec, [facility] [place] [address] [facility] [id number] [address] [place] [id number] Dec, Bipolar I disorder, most rec ent episode (or current) mixed, moderate F31.62 [facility] [place] [address] [place] [place] [id number] [address] [place] [phone] Dec, Bipolar I disorder, most rec ent episode (or current) mixed, moderate F31.62 [facility] [place] [address] [place] [id number] [address] [place] [id number] Nov, Chronic pain G89.29 [facility] [place] [address] [place] [place] [id number] [address] [place] [id number] Nov, Bipolar I disorder, most rec ent episode (or current) mixed, moderate F31.62 [facility] [place] [address] [place] [place] [id number] [address] [place] [id number] Nov, [facility] [place] [address] [facility] [id number] [address] [place] [phone] Nov, Bipolar I disorder, most rec ent episode (or current) mixed, moderate F31.62 [facility] [place] [address] [place] [id number] [address] [place] [phone] Nov, Bipolar I disorder, most rec ent episode (or current) mixed, moderate F31.62 [facility] [place] [address] [place] [place] [id number] [address] [place] [id number] Nov, [facility] [place] [address] [place] [id number] [address] [place] [phone] Nov, [facility] [place] [address] [facility] [id number] [address] [place] [id number] Nov, [facility] [place] [address] [facility] [id number] [address] [place] [id number] Oct, Chronic pain G89.29 [facility] [place] [address] [facility] [id number] [address] [place] [phone] Oct, Bipolar I disorder, most rec ent episode (or current) mixed, moderate F31.62 [facility] [place] [address] [facility] [id number] [address] [place] [id number] Oct, [facility] [place] [address] [facility] [id number] [address] [place] [phone] Oct, Chronic pain G89.29 ; Diabet es E11.9 ; Anxiety F41.9 and 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 [facility] [place] [address] [facility] [id number] [address] [place] [phone] Oct, [facility] [place] [address] [facility] [id number] [address] [place] [phone] Oct, Diabetes E11.9 [facility] [place] [address] [facility] [id number] [address] [place] [id number] Oct, Bipolar I disorder, most rec ent episode (or current) mixed, moderate F31.62 [facility] [place] [address] [facility] [id number] [address] [place] [id number] Sep, Chronic pain G89.29 [facility] [place] [address] [facility] [id number] [address] [place] [phone] Sep, Chronic pain G89.29 [facility] [place] [address] [facility] [id number] [address] [place] [id number] Aug, Chronic pain G89.29 [facility] [place] [address] [facility] [id number] [address] [place] [phone] Jul, [facility] [place] [address] [facility] [id number] [address] [place] [phone] Jul, Diabetes E11.9 [facility] [place] [address] [facility] [id number] [address] [place] [phone] Jul, Chronic pain G89.29 [facility] [place] [address] [facility] [id number] [address] [place] [phone] Jul, Bipolar I disorder, most rec ent episode (or current) mixed, moderate F31.62 [facility] [place] [address] [facility] [id number] [address] [place] [phone] Jun, Bipolar I disorder, most rec ent episode (or current) mixed, moderate F31.62 [place] [address] [facility] [id number] [address] [place] [phone] Jun, [facility] [place] [address] [facility] [id number] [address] [place] [phone] Jun, Bipolar I disorder, most rec ent episode (or current) mixed, moderate F31.62 [place] [id number] [facility] [id number] [address] [place] [phone] 30 May, 2016 Insomnia, unspecified type G 47.00 [facility] [place] [address] [facility] [id number] [address] [place] [phone] May, Bipolar I disorder, most rec ent episode (or current) mixed, moderate F31.62 [facility] [place] [address] [facility] [id number] [address] [place] [id number] 14 May, 2016 [facility] [place] [address] [facility] [id number] [address] [place] [phone] 08 May, 2016 Bipolar I disorder, most rec ent episode (or current) mixed, moderate F31.62 [facility] [place] [address] [facility] [id number] [address] [place] [phone] 06 May, 2016 Diabetes E11.9 and Essential hypertension I10 [facility] [place] [address] [facility] [id number] [address] [place] [id number] Apr, Chronic pain G89.29 [facility] [place] [address] [id number] [address] [place] [phone] Apr, Bipolar I disorder, most rec ent episode (or current) mixed, moderate F31.62 [facility] [place] [address] [facility] [id number] [address] [place] [phone] Apr, [facility] [place] [address] [facility] [id number] [address] [place] [phone] Apr, [facility] [place] [address] [facility] [id number] [address] [place] [id number] Mar, Chronic pain G89.29 ; Headac he, unspecified headache type R51 ; Neuropathy G62.9 ; Pain of right hip joint M25.551 and Essential hypertension I10 [place] [address] [id number] [address] [place] [phone] Mar, Chronic pain G89.29 [facility] [place] [address] [facility] [id number] [address] [place] [id number] Mar, Bipolar I disorder, most rec ent episode (or current) mixed, moderate F31.62 [place] [address] [id number] [address] [place] [phone] Feb, Bipolar I disorder, most rec ent episode (or current) mixed, moderate F31.62 and Insomnia, unspecified type G47.00 [place] [address] [facility] [id number] [address] [place] [phone] Feb, Chronic pain G89.29 [facility] [place] [address] [facility] [id number] [address] [place] [phone] Feb, Bipolar I disorder, most rec ent episode (or current) mixed, moderate F31.62 [place] [address] [id number] [address] [place] [phone] January, Bipolar I disorder, most rec ent episode (or current) mixed, moderate F31.62 [place] [address] [facility] [id number] [address] [place] [phone] January, Chronic pain G89.29 [facility] [place] [address] [facility] [id number] [address] [place] [phone] January, Chronic pain G89.29 and Esse ntial hypertension I10 [facility] [place] [address] [id number] [address] [place] [phone] January, Bipolar I disorder, most rec ent episode (or current) mixed, moderate F31.62 [facility] [place] [address] [facility] [id number] [address] [place] [id number] Dec, [facility] [place] [address] [facility] [id number] [address] [place] [phone] Dec, [facility] [place] [address] [place] [id number] [address] [place] [id number] Dec, [facility] [place] [address] [facility] [id number] [address] [place] [id number] Dec, [facility] [place] [address] [facility] [id number] [address] [place] [phone] Nov, Reactive airway disease J45. 909 [facility] [place] [address] [place] [id number] [address] [place] [phone] Nov, [facility] [place] [address] [id number] [address] [place] [phone] Nov, [facility] [place] [address] [facility] [id number] [address] [place] [id number] Nov, [facility] [place] [address] [facility] [id number] [address] [place] [phone] Nov, [facility] [place] [address] [place] [id number] [address] [place] [phone] Nov, Onychomycosis B35.1 ; Hammer toe M20.40 ; Irvona or callus L84 and DM neuro manif type II E11.49 [facility] [place] [address] [address] Nov, Chronic pain G89.29 ; Leukoc ytosis D72.829 and Diabetes E11.9 [place] [address] [address] Nov, [place] [address] [address] Oct, Bronchitis J40 [place] [address] [address] Oct, [place] [address] [phone] Oct, [place] [address] [id number] Oct, Mastoiditis, unspecified lat erality H70.90 and Type 2 diabetes mellitus with complication E11.8 [place] [address] [address] Sep, [place] [address] [address] Sep, Dysuria R30.0 ; Cough R05 ; Benign prostatic hyperplasia with lower urinary tract symptoms, unspecified morphology N40.1 ; Hypokalemia E87.6 and Eustachian tube dysfunction, unspecified laterality H69.80 [place] [address] [address] Sep, Moderate mixed bipolar I dis order F31.62 [place] [address] [id number] Sep, Hypokalemia E87.6 [place] [address] [address] Sep, [place] [address] [address] Sep, Upper respiratory tract infe ction, unspecified type J06.9 [facility] [place] [address] [id number] [address] [place] [id number] Aug, [facility] [place] [address] [id number] [address] [place] [id number] Aug, Dysuria R30.0 [facility] [place] [address] [id number] [address] [place] [id number] Aug, [facility] [place] [address] [id number] [address] [place] [id number] Jul, [facility] [place] [address] [id number] [address] [place] [id number] Jul, [facility] [place] [address] [id number] [address] [place] [id number] Jul, [facility] [place] [address] [id number] [address] [place] [id number] Jul, [facility] [place] [address] [id number] [address] [place] [phone] Jun, [facility] [place] [address] [id number] [address] [place] [id number] Jun, [facility] [place] [address] [id number] [address] [place] [id number] Jun, [facility] [place] [address] [facility] [id number] [address] [place] [id number] May, [facility] [place] [address] [id number] [address] [place] [id number] May, Bipolar I disorder, most rec ent episode (or current) mixed, moderate 296.62 [facility] [place] [address] [id number] [address] [place] [id number] 16 May, 2015 [facility] [place] [address] [facility] [id number] [address] [place] [id number] May, Bipolar I disorder, most rec ent episode (or current) mixed, moderate 296.62 and Major depressive disorder, recurrent episode, severe, specified as with psychotic behavior 296.34 [facility] [place] [address] [id number] [address] [place] [id number] May, Bipolar I disorder, most rec ent episode (or current) mixed, moderate 296.62 [facility] [place] [address] [id number] [address] [place] [id number] May, [facility] [place] [address] [id number] [address] [place] [id number] Apr, [facility] [place] [address] [id number] [address] [place] [id number] Apr, [facility] [place] [address] [facility] [id number] [address] [place] [id number] Apr, Unspecified disorder of kidn ey and ureter 593.9 and Diabetes mellitus type 2, uncontrolled 250.02 [facility] [place] [address] [facility] [id number] [address] [place] [id number] Apr, [facility] [place] [facility] [address] [id number] [address] [place] [address] Apr, [facility] [place] [address] [facility] [id number] [address] [place] [address] Apr, [facility] [place] [address] [facility] [id number] [address] [place] [address] Apr, [facility] [place] [address] [id number] [address] [place] [address] Apr, Diabetes mellitus type II, u ncontrolled 250.02 [facility] [place] [address] [id number] [address] [place] [address] Apr, [facility] [place] [address] [facility] [id number] [address] [place] [address] Mar, [facility] [place] [address] [facility] [id number] [address] [place] [address] Mar, [facility] [place] [address] [place] [id number] [address] [place] [address] Mar, [facility] [place] [address] [id number] [address] [place] [address] Mar, Major depressive disorder, r ecurrent episode, severe, specified as with psychotic behavior 296.34 and Bipolar I disorder, most recent episode (or current) mixed, moderate 296.62 [facility] [place] [address] [id number] [address] [place] [address] Mar, Diabetes 250.00 ; Anuria 788 .5 ; Nausea and vomiting 787.01 and Diarrhea 787.91 [facility] [place] [address] [id number] [address] [place] [address] Mar, Diabetes 250.00 [facility] [place] [address] [place] [id number] [place] [address] Mar, [facility] [place] [address] [address] Mar, Diabetes 250.00 [facility] [place] [address] [place] [id number] [address] [place] [address] Mar, [facility] [place] [address] [address] Mar, [facility] [place] [address] [place] [id number] [address] [place] [address] Mar, [facility] [place] [address] [id number] [address] [place] [address] Mar, [facility] [place] [address] [id number] [address] [place] [address] Mar, Bipolar I disorder, most rec ent episode (or current) mixed, moderate 296.62 and Major depressive disorder, recurrent episode, severe, specified as with psychotic behavior 296.34 [facility] [place] [address] [id number] [address] [place] [address] Mar, Magnesium deficiency 275.2 ; Hypokalemia 276.8 ; Nausea & vomiting 787.01 and Diabetes mellitus type 2, uncontrolled 250.02 [facility] [place] [address] [id number] Feb, [facility] [place] [address] [address] Feb, Bipolar I disorder, most rec ent episode (or current) mixed, moderate 296.62 [place] [address] [address] Feb, Nausea and vomiting 787.01 ; Left elbow pain 719.42 ; Anuria 788.5 and Diabetes 250.00 [place] [address] [address] Feb, [place] [address] [address] Feb, Hypopotassemia 276.8 and Hyp okalemia 276.8 [place] [address] [address] Feb, Hypopotassemia 276.8 and Hyp okalemia 276.8 [place] [address] [address] Feb, Seborrheic keratoses 702.19 [place] [address] [address] Feb, Hypopotassemia 276.8 and Low magnesium levels 275.2 [place] [address] [id number] January, [facility] [place] [address] [id number] January, [place] [address] [id number] January, [facility] [place] [address] [address] January, Scalp lesion 709.9 [facility] [address] [id number] [address] [place] [address] January, [facility] [address] [id number] [address] [place] [address] Dec, Tear of medial cartilage or meniscus of knee, current 836.0 and 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 [facility] [address] [id number] [address] [place] [address] Dec, [facility] [address] [id number] [address] [place] [address] Dec, [facility] [address] [id number] [address] [place] [address] Dec, Squamous cell carcinoma, 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 [facility] [address] [id number] [address] [place] [address] Dec, [facility] [address] [id number] [address] [place] [address] Dec, [facility] [address] [id number] [address] [place] [address] Nov, [facility] [address] [id number] [address] [place] [address] Nov, [facility] [address] [id number] [address] [place] [address] Nov, [facility] [address] [id number] [address] [place] [address] Nov, [facility] [address] [id number] [address] [place] [address] Nov, [facility] [address] [id number] [address] [place] [address] Nov, [facility] [address] [id number] [address] [place] [address] Nov, [facility] [address] [id number] [address] [place] [address] Nov, [facility] [address] [id number] [address] [place] [address], [place] [address] Nov, [facility] [address] [id number] [address] [place] [address], [place] [address] Nov, [facility] [address] [id number] [address] [place] [address], [place] [address] Nov, [facility] [address] [id number] [address] [place] [address], [place] [address] Nov, [facility] [address] [id number] [address] [place] [address], [place] [address] Oct, 2014 [facility] [address] [id number] [address] [place] [address], [place] [address] Oct, 2014 [facility] [address] [id number] [address] [place] [address], [place] [address] Oct, 2014 [facility] [address] [id number] [address] [place] [address] Oct, 2014 [facility] [address] [id number] [address] [place] [address], [place] [address] Oct, 2014 [facility] [address] [id number] [address] [place] [address], [place] [address] Oct, 2014 [facility] [address] [id number] [address] [place] [address], [place] [address] Oct, 2014 [facility] [address] [id number] [address] [place] [address] Oct, 2014 [facility] [address] [id number] [address] [place] [address] Oct, [facility] [address] [id number] [address] [place] [address] Sep, [facility] [address] [id number] [address] [place] [address] Sep, [facility] [address] [id number] [address] [place] [address], [place] [address] Sep, [facility] [address] [id number] [address] [place] [address], [place] [address] Sep, [facility] [address] [id number] [address] [place] [address], [place] [address] Sep, [facility] [address] [id number] [address] [place] [address], [place] [address] Sep, [facility] [address] [id number] [address] [place] [address], [place] [address] Sep, [facility] [address] [id number] [address] [place] [address], [place] [address] Sep, [facility] [address] [id number] [address] [place] [address], [place] [address] Sep, [facility] [address] [id number] [address] [place] [address], [place] [address] Sep, [facility] [address] [id number] [address] [place] [address], [place] [address] Sep, [facility] [address] [id number] [address] [place] [address], [place] [address] Sep, [facility] [address] [id number] [address] [place] [address], [place] [address] Sep, [facility] [address] [id number] [address] [place] [address], [place] [address] Sep, [facility] [address] [id number] [address] [place] [address], [place] [address] Sep, [facility] [address] [id number] [address] [place] [address], [place] [address] Sep, [facility] [address] [id number] [address] [place] [address], [place] [address] Aug, [facility] [address] [id number] [address] [place] [address], [place] [address] Aug, [facility] [address] [id number] [facility] [place] [address] Aug, [facility] [address] [id number] [address] [place] [address], [place] [address] Aug, [facility] [address] [id number] [facility] [place] [address] Aug, [facility] [address] [id number] [address] [place] [address], [place] [address] Aug, [facility] [address] [id number] [facility] [place] [address] Aug, [facility] [address] [id number] [address] [place] [address], [place] [address] Aug, [facility] [address] [id number] [address] [place] [address], [place] [address] Aug, [facility] [address] [id number] [address] [place] [address], [place] [address] Aug, [facility] [address] [id number] [address] [place] [address], [place] [address] Aug, [facility] [place] [id number] Aug, [facility] [address] [id number] [address] [place] [address], [place] [address] Aug, [facility] [address] [id number] [address] [place] [address], [place] [address] Aug, [facility] [address] [id number] [address] [place] [address], [place] [address] Aug, [facility] [address] [id number] [address] [place] [address], [place] [address] Aug, [facility] [address] [id number] [address] [place] [address], [place] [address] Aug, [facility] [address] [id number] [address] [place] [address], [place] [address] Aug, [facility] [address] [id number] [address] [place] [address], [place] [address] 08 Aug, 2014 [facility] [address] [id number] [address] [place] [address], [place] [address] Aug, [facility] [address] [id number] [address] [place] [address], [place] [address] Aug, [facility] [address] [id number] [address] [place] [address], [place] [address] Aug, [facility] [address] [id number] [address] [place] [address], [place] [address] Aug, [facility] [address] [id number] [address] [place] [address], [place] [address] Aug, [facility] [address] [id number] [address] [place] [address], [place] [address] Aug, [facility] [address] [id number] [address] [place] [address], [place] [address] Aug, [facility] [address] [id number] [address] [place] [address], [place] [address] Aug, [facility] [address] [id number] [address] [place] [address], [place] [address] Aug, [facility] [address] [id number] [address] [place] [address], [place] [address] Aug, [facility] [address] [id number] [address] [place] [address], [place] [address] Aug, [facility] [address] [id number] [address] [place] [address], [place] [address] Jul, [facility] [address] [id number] [address] [place] [address], [place] [address] Jul, [facility] [address] [id number] [address] [place] [address], [place] [address] Jul, [facility] [address] [id number] [address] [place] [address], [place] [address] Jul, [facility] [address] [id number] [address] [place] [address], [place] [address] Jul, [facility] [address] [id number] [address] [place] [address], [place] [address] Jul, [facility] [address] [id number] [address] [place] [address], [place] [address] Jul, [facility] [address] [id number] [address] [place] [address], [place] [address] Jul, [facility] [address] [id number] [address] [place] [address], [place] [address] Jul, [facility] [address] [id number] [address] [place] [address], [place] [address] Jul, [facility] [address] [id number] [address] [place] [address], [place] [address] Jun, [facility] [address] [id number] [address] [place] [address], [place] [address] Jun, [facility] [address] [id number] [address] [place] [address], [place] [address] Jun, [facility] [address] [id number] [address] [place] [address], [place] [address] Jun, [facility] [address] [id number] [address] [place] [address], [place] [address] Jun, [facility] [address] [id number] [address] [place] [address], [place] [address] Jun, [facility] [address] [id number] [address] [place] [address], [place] [address] Jun, [facility] [address] [id number] [address] [place] [address], [place] [address] Jun, [facility] [address] [id number] [address] [place] [address], [place] [address] Jun, [facility] [address] [id number] [address] [place] [address], [place] [address] Jun, [facility] [address] [id number] [address] [place] [address], [place] [address] 29 May, 2013 [facility] [address] [id number] [address] [place] [address], [place] [address] 29 Sep, 2013 [facility] [address] [id number] [address] [place] [address], [place] [address] 26 Sep, 2013 [facility] [address] [id number] [address] [place] [address], [place] [address] 26 Sep, 2013 [facility] [address] [id number] [address] [place] [address], [place] [address] 17 May, 2013 [facility] [address] [id number] [address] [place] [address], [place] [address] 17 May, 2013 [facility] [address] [id number] [address] [place] [address], [place] [address] 15 May, 2013 [facility] [address] [id number] [address] [place] [address], [place] [address] 15 May, 2013 [facility] [address] [id number] [address] [place] [address], [place] [address] 15 May, 2013 [facility] [address] [id number] [address] [place] [address], [place] [address] 15 May, 2013 [facility] [address] [id number] [address] [place] [address] 10 Sep, 2013 [facility] [address] [id number] [address] [place] [address], [place] [address] 10 May, 2013 [facility] [address] [id number] [address] [place] [address], [place] [address] 09 Sep, 2013 [facility] [address] [id number] [address] [place] [address], [place] [address] 09 Sep, 2013 [facility] [address] [id number] [facility] [place] [address] May, [facility] [address] [id number] [address] [place] [address], [place] [address] May, [facility] [address] [id number] [facility] [place] [address] Apr, [facility] [address] [id number] [address] [place] [address], [place] [address] Apr, [facility] [address] [id number] [address] [place] [address], [place] [address] Apr, [facility] [address] [id number] [address] [place] [address], [place] [address] Apr, [facility] [address] [id number] [address] [place] [address], [place] [address] Apr, [facility] [address] [id number] [address] [place] [address], [place] [address] Apr, [facility] [address] [id number] [address] [place] [address], [place] [address] Apr, [facility] [address] [id number] [address] [place] [address], [place] [address] Apr, [facility] [address] [id number] [address] [place] [address], [place] [address] Apr, [facility] [address] [id number] [address] [place] [address], [place] [address] Apr, [facility] [address] [id number] [address] [place] [address], [place] [address] Apr, [facility] [address] [id number] [address] [place] [address], [place] [address] Apr, [facility] [address] [id number] [address] [place] [address], [place] [address] Apr, [facility] [address] [id number] [address] [place] [address], [place] [address] Apr, [facility] [address] [id number] [address] [place] [address], [place] [address] Apr, [facility] [address] [id number] [address] [place] [address], [place] [address] Mar, [facility] [address] [id number] [address] [place] [address], [place] [address] Mar, [facility] [address] [id number] [address] [place] [address], [place] [address] Mar, [facility] [address] [id number] [address] [place] [address], [place] [address] Mar, [facility] [address] [id number] [address] [place] [address], [place] [address] Mar, [facility] [address] [id number] [address] [place] [address], [place] [address] Mar, [facility] [address] [id number] [address] [place] [address], [place] [address] Mar, [facility] [address] [id number] [address] [place] [address], [place] [address] Mar, [facility] [address] [id number] [address] [place] [address], [place] [address] Mar, [facility] [address] [id number] [address] [place] [address], [place] [address] Mar, [facility] [address] [id number] [address] [place] [address], [place] [address] Mar, [facility] [address] [id number] [address] [place] [address], [place] [address] Mar, [facility] [address] [id number] [address] [place] [address], [place] [address] Mar, [facility] [address] [id number] [address] [place] [address], [place] [address] Mar, [facility] [address] [id number] [address] [place] [address], [place] [address] Mar, [facility] [address] [id number] [facility] [place] [address] Mar, [facility] [address] [id number] [address] [place] [address], [place] [address] Mar, [facility] [address] [id number] [address] [place] [address], [place] [address] Mar, [facility] [address] [id number] [address] [place] [address], [place] [address] Feb, [facility] [address] [id number] [address] [place] [address], [place] [address] Feb, [facility] [address] [id number] [address] [place] [address], [place] [address] Feb, [facility] [address] [id number] [address] [place] [address], [place] [address] Feb, [facility] [address] [id number] [address] [place] [address], [place] [address] Feb, [facility] [address] [id number] [address] [place] [address], [place] [address] Feb, [facility] [address] [id number] [address] [place] [address], [place] [address] Feb, [facility] [address] [id number] [address] [place] [address], [place] [address] Feb, [facility] [address] [id number] [address] [place] [address], [place] [address] Feb, [facility] [address] [id number] [address] [place] [address], [place] [address] Feb, [facility] [address] [id number] [address] [place] [address], [place] [address] Feb, [facility] [address] [id number] [address] [place] [address], [place] [address] Feb, [facility] [address] [id number] [facility] [place] [address] Feb, [facility] [address] [id number] [facility] [place] [address] Feb, [facility] [address] [id number] [facility] [place] [address] January, [facility] [address] [id number] [facility] [place] [address] January, [facility] [address] [id number] [facility] [place] [address] January, [facility] [address] [id number] [address] [place] [address], [place] [address] January, [facility] [address] [id number] [address] [place] [address], [place] [address] January, [facility] [address] [id number] [address] [place] [address], [place] [address] January, [facility] [address] [id number] [address] [place] [address], [place] [address] January, [facility] [address] [id number] [address] [place] [address], [place] [address] January, [facility] [address] [id number] [address] [place] [address], [place] [address] January, [facility] [address] [id number] [address] [place] [address], [place] [address] January, [facility] [address] [id number] [address] [place] [address], [place] [address] January, [facility] [address] [id number] [address] [place] [address], [place] [address] January, [facility] [address] [id number] [address] [place] [address], [place] [address] January, [facility] [address] [address] [id number] [address] [place] [address], [place] [address] January, [facility] [address] [id number] [facility] [place] [address] Dec, [facility] [address] [id number] [facility] [place] [address] Dec, [facility] [address] [id number] [address] [place] [address], [place] [address] Dec, [facility] [address] [id number] [address] [place] [address], [place] [address] Dec, [facility] [address] [id number] [address] [place] [address], [place] [address] Dec, [facility] [address] [id number] [address] [place] [address], [place] [address] Dec, [facility] [address] [id number] [address] [place] [address], [place] [address] Dec, [facility] [address] [id number] [address] [place] [address], [place] [address] Dec, [facility] [address] [id number] [address] [place] [address], [place] [address] Dec, [facility] [address] [id number] [address] [place] [address], [place] [address] Dec, [facility] [address] [id number] [address] [place] [address], [place] [address] Nov, [facility] [address] [id number] [address] [place] [address], [place] [address] Nov, [facility] [address] [id number] [address] [place] [address], [place] [address] Nov, [facility] [address] [id number] [address] [place] [address], [place] [address] Nov, [facility] [address] [id number] [address] [place] [address], [place] [address] Nov, [facility] [address] [id number] [address] [place] [address], [place] [address] 08 Nov, 2013 [facility] [address] [id number] [address] [place] [address], [place] [address] 05 Nov, 2013 [facility] [address] [id number] [address] [place] [address], [place] [address] 05 Nov, 2013 [facility] [address] [id number] [address] [place] [address], [place] [address] Nov, [facility] [address] [id number] [address] [place] [address], [place] [address] Nov, [facility] [address] [id number] [address] [place] [address], [place] [address] Oct, [facility] [address] [id number] [address] [place] [address], [place] [address] Oct, [facility] [address] [id number] [address] [place] [address], [place] [address] Oct, [facility] [address] [id number] [address] [place] [address], [place] [address] Oct, [facility] [address] [id number] [address] [place] [address], [place] [address] 20 Oct, 2013 [facility] [address] [id number] [address] [place] [address], [place] [address] 20 Oct, 2013 [facility] [address] [id number] [address] [place] [address], [place] [address] 14 Oct, 2013 [facility] [address] [id number] [address] [place] [address], [place] [address] 14 Oct, 2013 [facility] [address] [id number] [address] [place] [address], [place] [address] 05 Oct, 2013 [facility] [address] [id number] [address] [place] [address], [place] [address] 05 Oct, 2013 [facility] [address] [id number] [address] [place] [address], [place] [address] Oct, [facility] [address] [id number] [address] [place] [address], [place] [address] Oct, [facility] [address] [id number] [address] [place] [address], [place] [address] Oct, [facility] [address] [id number] [address] [place] [address], [place] [address] Oct, [facility] [address] [id number] [address] [place] [address], [place] [address] Sep, [facility] [address] [id number] [address] [place] [address], [place] [address] Sep, [facility] [address] [id number] [address] [place] [address], [place] [address] Sep, [facility] [address] [id number] [address] [place] [address], [place] [address] Sep, [facility] [address] [id number] [address] [place] [address], [place] [address] Sep, [facility] [address] [id number] [address] [place] [address], [place] [address] Sep, [facility] [address] [id number] [address] [place] [address], [place] [address] Sep, [facility] [address] [id number] [address] [place] [address], [place] [address] Sep, [facility] [address] [id number] [address] [place] [address], [place] [address] Sep, [facility] [address] [id number] [address] [place] [address], [place] [address] Sep, [facility] [address] [id number] [address] [place] [address], [place] [address] Aug, [facility] [address] [id number] [address] [place] [address], [place] [address] Aug, [facility] [address] [id number] [address] [place] [address], [place] [address] Jul, [facility] [address] [id number] [address] [place] [address], [place] [address] Jul, [facility] [address] [id number] [address] [place] [address], [place] [address] Jul, [facility] [address] [id number] [address] [place] [address], [place] [address] Jul, [facility] [address] [id number] [address] [place] [address], [place] [address] Jul, [facility] [address] [id number] [address] [place] [address], [place] [address] Jul, [facility] [address] [id number] [address] [place] [address], [place] [address] Jul, [facility] [address] [id number] [address] [place] [address], [place] [address] Jul, [facility] [address] [id number] [address] [place] [address], [place] [address] Jul, [facility] [address] [id number] [address] [place] [address], [place] [address] Jul, [facility] [address] [id number] [address] [place] [address], [place] [address] Jul, [facility] [address] [id number] [address] [place] [address], [place] [address] Jul, [facility] [address] [id number] [address] [place] [address], [place] [address] Jul, [facility] [address] [id number] [address] [place] [address], [place] [address] Jul, [facility] [address] [id number] [address] [place] [address], [place] [address] Jul, [facility] [address] [id number] [address] [place] [address], [place] [address] Jul, [facility] [address] [id number] [address] [place] [address], [place] [address] Jul, 2012 [facility] [address] [id number] [address] [place] [address], [place] [address] Jul, [facility] [address] [id number] [address] [place] [address], [place] [address] Jul, 2012 [facility] [address] [id number] [address] [place] [address], [place] [address] Jun, 2012 [facility] [address] [id number] [address] [place] [address], [place] [address] Jun, 2012 [facility] [address] [id number] [address] [place] [address], [place] [address] Jun, 2012 [facility] [address] [id number] [address] [place] [address], [place] [address] Jun, 2012 [facility] [address] [id number] [address] [place] [address] Jun, [facility] [address] [id number] [address] [place] [address] Jun, [facility] [address] [id number] [address] [place] [address] Jun, [facility] [address] [id number] [address] [place] [address] Jun, [facility] [address] [id number] [address] [place] [address] Jun, [facility] [address] [id number] [address] [place] [address] Jun, [facility] [address] [id number] [address] [place] [address] Jun, [facility] [address] [id number] [address] [place] [address] May, [facility] [address] [id number] [address] [place] [address] 25 May, 2013 [facility] [address] [id number] [address] [place] [address], [place] [address] 19 May, 2012 [facility] [address] [id number] [address] [place] [address], [place] [address] 17 May, 2013 [facility] [address] [id number] [address] [place] [address], [place] [address] 11 May, 2012 [facility] [address] [id number] [address] [place] [address], [place] [address] 10 May, 2012 [facility] [address] [id number] [address] [place] [address], [place] [address] 09 May, 2013 [facility] [address] [id number] [address] [place] [address], [place] [address] 05 May, 2013 [facility] [address] [id number] [address] [place] [address], [place] [address] Apr, [facility] [address] [id number] [address] [place] [address], [place] [address] Apr, [facility] [address] [id number] [address] [place] [address], [place] [address] Apr, [facility] [address] [id number] [address] [place] [address], [place] [address] Apr, [facility] [address] [id number] [address] [place] [address], [place] [address] Apr, [facility] [address] [id number] [address] [place] [address], [place] [address] Mar, [facility] [address] [id number] [address] [place] [address], [place] [address] Mar, [facility] [address] [id number] [address] [place] [address], [place] [address] Mar, [facility] [address] [id number] [address] [place] [address], [place] [address] Mar, [facility] [address] [id number] [facility] [place] [address] Mar, [facility] [address] [id number] [address] [place] [address], [place] [address] Mar, [facility] [address] [id number] [address] [place] [address], [place] [address] Mar, [facility] [address] [id number] [address] [place] [address], [place] [address] Mar, [facility] [address] [id number] [address] [place] [address], [place] [address] Feb, [facility] [address] [id number] [address] [place] [address], [place] [address] Feb, [facility] [address] [id number] [address] [place] [address], [place] [address] January, [facility] [address] [id number] [address] [place] [address], [place] [address] January, [facility] [address] [id number] [address] [place] [address], [place] [address] Dec, [facility] [address] [id number] [address] [place] [address], [place] [address] Dec, [facility] [address] [id number] [address] [place] [address], [place] [address] Nov, [facility] [address] [id number] [address] [place] [address], [place] [address] Nov, [facility] [address] [id number] [address] [place] [address], [place] [address] Nov, [facility] [address] [id number] [address] [place] [address], [place] [address] Nov, [facility] [address] [id number] [address] [place] [address], [place] [address] Oct, [facility] [address] [id number] [address] [place] [address], [place] [address] Oct, [facility] [address] [id number] [address] [place] [address], [place] [address] Oct, [facility] [address] [id number] [address] [place] [address], [place] [address] Oct, [facility] [address] [id number] [address] [place] [address], [place] [address] 16 Oct, 2012 [facility] [address] [id number] [address] [place] [address], [place] [address] 14 Oct, 2012 [facility] [address] [id number] [address] [place] [address], [place] [address] 08 Oct, 2012 [facility] [address] [id number] [address] [place] [address], [place] [address] 07 Oct, 2012 [facility] [address] [id number] [address] [place] [address], [place] [address] 03 Oct, 2012 [facility] [address] [id number] [address] [place] [address], [place] [address] Sep, [facility] [address] [id number] [address] [place] [address], [place] [address] Sep, [facility] [address] [id number] [address] [place] [address], [place] [address] Sep, [facility] [address] [id number] [address] [place] [address], [place] [address] Sep, [facility] [address] [id number] [address] [place] [address], [place] [address] Sep, [facility] [address] [id number] [address] [place] [address], [place] [address] Sep, [facility] [address] [id number] [address] [place] [address], [place] [address] 09 Sep, 2012 [facility] [address] [id number] [address] [place] [address], [place] [address] 08 Sep, 2012 [facility] [address] [id number] [address] [place] [address], [place] [address] 31 Aug, 2012 [facility] [address] [id number] [address] [place] [address], [place] [address] Aug, [facility] [address] [id number] [address] [place] [address], [place] [address] Aug, [facility] [address] [id number] [address] [place] [address], [place] [address] Aug, [facility] [address] [id number] [address] [place] [address], [place] [address] Aug, [facility] [address] [id number] [address] [place] [address], [place] [address] Aug, [facility] [address] [id number] [address] [place] [address], [place] [address] Aug, [facility] [address] [id number] [address] [place] [address], [place] [address] Aug, [facility] [address] [id number] [address] [place] [address], [place] [address] Jul, [facility] [address] [id number] [address] [place] [address], [place] [address] Jul, [facility] [address] [id number] [address] [place] [address], [place] [address] Jul, [facility] [address] [id number] [address] [place] [address], [place] [address] Jul, [facility] [address] [id number] [address] [place] [address], [place] [address] Jul, [facility] [address] [id number] [address] [place] [address], [place] [address] Jul, [facility] [address] [id number] [address] [place] [address], [place] [address] Jun, [facility] [address] [id number] [address] [place] [address], [place] [address] Jun, [facility] [address] [id number] [address] [place] [address], [place] [address] Jun, [facility] [address] [id number] [address] [place] [address], [place] [address] Jun, [facility] [address] [id number] [address] [place] [address], [place] [address] Jun, [facility] [address] [id number] [address] [place] [address], [place] [address] Jun, [facility] [address] [id number] [address] [place] [address], [place] [address] Jun, [facility] [address] [id number] [address] [place] [address], [place] [address] Jun, [facility] [address] [id number] [address] [place] [address], [place] [address] Jun, [facility] [address] [id number] [address] [place] [address], [place] [address] 26 May, 2012 [facility] [address] [id number] [address] [place] [address], [place] [address] 24 May, 2012 [facility] [address] [id number] [address] [place] [address], [place] [address] 18 May, 2012 [facility] [address] [id number] [address] [place] [address], [place] [address] 30 Apr, 2012 [facility] [address] [id number] [address] [place] [address], [place] [address] 29 Apr, 2012 [facility] [address] [id number] [address] [place] [address], [place] [address] 18 Apr, 2012 [facility] [address] [id number] [address] [place] [address], [place] [address] 14 Apr, 2012 [facility] [address] [id number] [address] [place] [address], [place] [address] 10 Apr, 2012 [facility] [address] [id number] [address] [place] [address], [place] [address] Apr, [facility] [address] [id number] [address] [place] [address], [place] [address] Mar, [facility] [address] [id number] [address] [place] [address], [place] [address] Mar, [facility] [address] [id number] [address] [place] [address], [place] [address] Mar, [facility] [address] [id number] [address] [place] [address], [place] [address] Mar, [facility] [address] [id number] [address] [place] [address], [place] [address] Feb, [facility] [address] [id number] [address] [place] [address], [place] [address] Feb, [facility] [address] [id number] [address] [place] [address], [place] [address] Feb, [facility] [address] [id number] [address] [place] [address], [place] [address] Feb, [facility] [address] [id number] [address] [place] [address], [place] [address] Feb, [facility] [address] [id number] [address] [place] [address], [place] [address] January, [facility] [address] [id number] [address] [place] [address], [place] [address] January, [facility] [address] [id number] [address] [place] [address], [place] [address] January, [facility] [address] [id number] [address] [place] [address], [place] [address] January, [facility] [address] [id number] [address] [place] [address], [place] [address] January, [facility] [address] [id number] [address] [place] [address], [place] [address] January, [facility] [address] [id number] [address] [place] [address], [place] [address] Dec, [facility] [address] [id number] [address] [place] [address], [place] [address] 24 Dec, 2011 [facility] [address] [id number] [address] [place] [address], [place] [address] 17 Dec, 2011 [facility] [address] [id number] [address] [place] [address], [place] [address] Dec, [facility] [address] [id number] [address] [place] [address], [place] [address] Dec, [facility] [address] [id number] [address] [place] [address], [place] [address] 27 Nov, 2011 [facility] [address] [id number] [address] [place] [address], [place] [address] 14 Nov, 2011 [facility] [address] [id number] [address] [place] [address], [place] [address] Nov, [facility] [address] [id number] [address] [place] [address], [place] [address] Nov, [facility] [address] [id number] [address] [place] [address], [place] [address] 29 Oct, 2011 [facility] [address] [id number] [address] [place] [address], [place] [address] Oct, [facility] [address] [id number] [address] [place] [address], [place] [address] 24 Oct, 2011 [facility] [address] [id number] [address] [place] [address], [place] [address] 13 Oct, 2011 [facility] [address] [id number] [address] [place] [address], [place] [address] 08 Oct, 2011 [facility] [address] [id number] [address] [place] [address], [place] [address] Sep, [facility] [address] [id number] [address] [place] [address], [place] [address] Sep, [facility] [address] [id number] [address] [place] [address], [place] [address] Sep, [facility] [address] [id number] [address] [place] [address], [place] [address] Sep, [facility] [address] [id number] [address] [place] [address], [place] [address] Sep, [facility] [address] [id number] [address] [place] [address], [place] [address] Sep, [facility] [address] [id number] [address] [place] [address], [place] [address] Aug, [facility] [address] [id number] [address] [place] [address], [place] [address] Aug, [facility] [address] [id number] [address] [place] [address], [place] [address] Aug, [facility] [address] [id number] [address] [place] [address], [place] [address] Jul, [facility] [address] [id number] [address] [place] [address], [place] [address] Jul, [facility] [address] [id number] [address] [place] [address], [place] [address] Jul, [facility] [address] [id number] [address] [place] [address], [place] [address] Jul, [facility] [address] [id number] [address] [place] [address], [place] [address] Jun, [facility] [address] [id number] [address] [place] [address], [place] [address] Jun, [facility] [address] [id number] [address] [place] [address], [place] [address] Jun, [facility] [address] [id number] [address] [place] [address], [place] [address] Jun, [facility] [address] [id number] [address] [place] [address], [place] [address] 10 Jun, 2011 [facility] [address] [id number] [address] [place] [address], [place] [address] 10 Jun, 2011 [facility] [address] [id number] [address] [place] [address], [place] [address] 11 Mar, 2011 [facility] [address] [id number] [address] [place] [address], [place] [address] 18 Dec, 2010 [facility] [address] [id number] [address] [place] [address], [place] [address] 11 Dec, 2010 [facility] [address] [id number] [address] [place] [address], [place] [address] 18 Nov, 2010 [facility] [address] [id number] [address] [place] [address], [place] [address] 16 Nov, 2010 [facility] [address] [id number] [address] [place] [address], [place] [address] 10 Sep, 2010 [facility] [address] [id number] [address] [place] [address], [place] [address] 31 Aug, 2010 [facility] [address] [id number] [address] [place] [address], [place] [address] 29 Aug, 2010 [facility] [address] [id number] [address] [place] [address], [place] [address] 29 Aug, 2010 [facility] [address] [id number] [address] [place] [address], [place] [address] 29 Aug, 2010 [facility] [address] [id number] [address] [place] [address], [place] [address] 27 Aug, 2010 [facility] [address] [id number] [address] [place] [address], [place] [address] 14 Aug, 2010 [facility] [address] [id number] [address] [place] [address], [place] [address] 08 Aug, 2010 [facility] [address] [id number] [address] [place] [address], [place] [address] 08 Aug, 2010 [facility] [address] [id number] [address] [place] [address], [place] [address] Aug, [facility] [address] [id number] [address] [place] [address], [place] [address] Aug, [facility] [address] [id number] [address] [place] [address], [place] [address] Aug, [facility] [address] [id number] [address] [place] [id number] Aug, [facility] [address] [id number] [address] [place] [address], [place] [address] Jul, [facility] [address] [id number] [address] [place] [address] Jul, [facility] [address] [id number] [address] [place] [address], [place] [address] Jul, [facility] [address] [id number] [address] [place] [id number] Jul, [facility] [address] [id number] [address] [place] [address] Jul, [facility] [address] [id number] [address] [place] [id number] Jul, [facility] [address] [id number] [address] [place] [address] 24 Jun, 2010 [facility] [address] [id number] [address] [place] [address] Jun, [facility] [address] [id number] [address] [place] [address] Jun, [facility] [address] [id number] [address] [place] [address] Jun, [facility] [address] [id number] [address] [place] [address] Apr, [facility] [address] [id number] [address] [place] [address], [place] [address] Mar, [facility] [address] [id number] [address] [place] [address], [place] [address] 17 Feb, 2010 [facility] [address] [id number] [address] [place] [address], [place] [address] January, [facility] [address] [id number] [address] [place] [address], [place] [address] 15 Dec, 2009 [facility] [address] [id number] [address] [place] [address], [place] [address] Nov, [facility] [address] [id number] [address] [place] [address], [place] [address] 31 Aug, 2009 [facility] [address] [id number] [address] [place] [address], [place] [address] Aug, [facility] [address] [id number] [address] [place] [address], [place] [address] Aug, [facility] [address] [id number] [address] [place] [address], [place] [address] Jul, [facility] [address] [id number] [address] [place] [address], [place] [address] Jul, [facility] [address] [id number] [address] [place] [address], [place] [address] 07 Jul, 2009 [facility] [address] [id number] [address] [place] [address], [place] [address] 30 Jun, 2009 [facility] [address] [id number] [address] [place] [address] 29 Jun, 2009 [facility] [address] [id number] [address] [place] [address], [place] [address] 26 Jun, 2009 [facility] [address] [id number] [address] [place] [address], [place] [address] 22 Jun, 2009 [facility] [address] [id number] [address] [place] [phone] Jun, [facility] [place] [address] [facility] [id number] [address] [place] [phone] Jun, [facility] [place] [address] [facility] [id number] [address] [place] [id number] Apr, [facility] [place] [address] [facility] [id number] [address] [place] [id number] Apr, [facility] [place] [address] [facility] [id number] [address] [place] [id number] Feb, [facility] [place] [address] [facility] [id number] [address] [place] [address] January, [facility] [place] [address] [facility] [id number] [address] [place] [phone] Dec, IMMUNIZATIONS No Known Immunizations SOCIAL HISTORY [...] Medical History skin cancer-basal cell R samaritan (removed ) Medical History Arthritis Medical History [...] History inability to urinate 09/16/15 Hospitalization History [facility] inpatient mental health ea rly 1999's Hospitalization History hyperkalemia 10/2017 Hospitalization History fluid in lung
[2020-03-01 17:25] LABS: ALKALINE PHOSPHATASE 89 U/L (40-136); CREATININE SERUM 1.18 MG/DL (0.60-1.30); GFR ESTIMATED > 60
--- OUTSIDE RECORDS SUMMARY | 2020-03-01 17:25 | XMS REPORT ---
Author Author Michele Lazaro Organization [facility] Address Unknown Care Team Providers Care Medicine Aide Name Role Phone ALYSE Lazaro Unavailable PROBLEMS Type Condition ICD9-CM Code FJE77-TU Code Onset Dates Condition S tatus SNOMED Code Problem Cough R05 Active 68298365 Problem Benign prostatic hyperplasia with lower urinary tract symptoms, unspecified morphology N40.1 Active 38665 6007 Problem Eustachian tube dysfunction, unspecified laterality H69.80 Active 33914195 Problem Chronic pain G89.29 Active 7782066 1 Problem DM neuro manif type II E11.49 Active 97639576 Problem Diabetes E11.9 Active 40318384 Problem Leukocytosis D72.829 Active 9961501 06 Problem Falling R29.6 Active 642509572 Problem Pressure ulcer of other site, stage 3 L89.893 Active 331917785 Problem 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 Active 951907270 Problem Eye exam abnormal R93.8 Active 16 0410956 Problem Dysuria R30.0 Active 83003187 Problem Hypokalemia E87.6 Active 74860038 Problem Morbid obesity E66.01 Active 90810 6002 Problem Anxiety F41.9 Active 95824985 Problem Diabetic polyneuropathy associated with type 2 d iabetes mellitus E11.42 Active 15538937 Problem Essential hypertension I10 Active 16926795 Problem Bilateral primary osteoarthritis of knee M17.0 Active 698659565 Problem Polyneuropathy associated with underlying disease G63 Active 557351048 Problem Anemia of chronic illness D63.8 Acti ve 906560569 Problem Lymphocytosis D72.820 Active 909232 09 Problem Retinal edema H35.81 Active 904558 6 Problem Chronic lymphocytic leukemia C91.10 A ctive 17550975 Problem Bipolar disorder, in partial remission, most rec ent episode depressed F31.75 Active 75227070 Problem Pure hypercholesterolemia E78.00 Acti ve 404108847 Problem Primary osteoarthritis of right knee M17.11 Active 055188341630732 Problem Bipolar disorder F31.9 Active 137 24803 Problem Bipolar I disorder, most recent episode (or curr ent) mixed, moderate F31.62 Active 83061277 Problem Chronic diastolic (congestive) heart failure I50.3 2 Active 806382695 Problem Reactive airway disease J45.909 Active 255153735079 Problem Insomnia, unspecified type G47.00 Act shaorn 259868284 Problem Other chronic pain G89.29 Active 8 1245577 Problem Other iron deficiency anemia D50.8 A ctive 82217327 Problem Mild cognitive impairment G31.84 Acti ve 295116448 Problem Skin cancer C44.90 Active 78432364 7 ALLERGIES No Information ENCOUNTERS Encounter Location Date Diagnosis [place] [address] [address] [facility] [id number] [address] [place] [id number] Mar, [place] [address] [facility] [id number] [address] [place] [id number] Mar, [place] [address] [facility] [id number] [address] [place] [id number] Feb, Bipolar disorder F31.9 [place] [address] [facility] [id number] [address] [place] [id number] Feb, Cellulitis of right upper ex tremity L03.113 and Skin abrasion T14.8XXA [place] [address] [facility] [id number] [address] [place] [id number] Feb, Bipolar disorder, in partial remission, most recent episode depressed F31.75 and Mild cognitive impairment G31.84 [place] [address] [facility] [id number] [address] [place] [id number] Feb, Chronic pain G89.29 [place] [address] [facility] [id number] [address] [place] [address] 03 Feb, 2019 Bipolar disorder, in partial remission, most recent episode depressed F31.75 and Mild cognitive impairment G31.84 [place] [address] [facility] [id number] [address] [place] [id number] January, Bipolar disorder, in partial remission, most recent episode depressed F31.75 and Mild cognitive impairment G31.84 [facility] [address] [id number] [address] [place] [id number] January, Chronic pain G89.29 and Bipo lar disorder F31.9 [facility] [address] [id number] [address] [place] [id number] January, Bipolar disorder, in partial remission, most recent episode depressed F31.75 and Mild cognitive impairment G31.84 [facility] [address] [id number] [address] [place] [id number] Dec, [facility] [address] [id number] [address] [place] [id number] Dec, Chronic pain G89.29 and Bipo lar disorder F31.9 [facility] [address] [id number] [address] [place] [id number] Dec, Edema of both lower extremit ies R60.0 [facility] [address] [id number] [address] [place] [id number] Dec, Bipolar disorder F31.9 [facility] [address] [id number] [address] [place] [id number] Dec, Bipolar disorder, in partial remission, most recent episode depressed F31.75 and Mild cognitive impairment G31.84 [facility] [address] [id number] [address] [place] [id number] Nov, [facility] [address] [id number] [address] [place] [id number] Nov, Chronic pain G89.29 [facility] [address] [id number] [address] [place] [id number] Nov, Bipolar disorder, in partial remission, most recent episode depressed F31.75 and Mild cognitive impairment G31.84 [facility] [address] [id number] [address] [place] [id number] Nov, Bipolar disorder F31.9 [place] [id number] [address] [place] [id number] 04 Nov, 2018 Encounter for Medicare annua [...] unspecified morphology N40.1 and Essential hypertension I10 [address] [address] 21 Oct, 2018 Chronic pain G89.[address] [address] 18 Oct, 2018 Diabetes E11.[address] [address] 11 Oct, 2018 Bipolar I disorder, most rec ent episode (or current) mixed, moderate F31.62 and Mild cognitive impairment G31.84 [place] [id number] [address] [place] [id number] 06 Oct, 2018 Bipolar I disorder, most rec ent episode (or current) mixed, moderate F31.62 and Mild cognitive impairment G31.84 [place] [id number] [address] [place] [id number] Sep, Bipolar I disorder, most rec ent episode (or current) mixed, moderate F31.62 and Mild cognitive impairment G31.[address] [address] Sep, [address] [address] Sep, Diabetes E11.9 ; Hypoxia R09 .02 ; Hyperglycemia R73.9 ; Therapeutic drug monitoring Z51.81 ; BMI 50.0-59.9, adult Z68.43 and Skin cancer C44.90 [facility] [address] [id number] [address] [place] [id number] Sep, Chronic pain G89.29 [facility] [address] [id number] [address] [place] [id number] Sep, Bipolar I disorder, most rec ent episode (or current) mixed, moderate F31.62 [facility] [address] [id number] [address] [place] [id number] Sep, [facility] [address] [id number] [address] [place] [id number] Sep, [facility] [address] [id number] [address] [place] [id number] Aug, Chronic pain G89.29 [facility] [address] [facility] [id number] [address] [place] [id number] Aug, Bipolar I disorder, most rec ent episode (or current) mixed, moderate F31.62 [facility] [address] [id number] [address] [place] [id number] Aug, Bipolar I disorder, most rec ent episode (or current) mixed, moderate F31.62 and Mild cognitive impairment G31.84 [facility] [address] [facility] [id number] [address] [place] [id number] Jul, [facility] [address] [id number] [address] [place] [id number] Jul, Chronic pain G89.29 [facility] [address] [id number] [address] [place] [id number] Jul, Bipolar I disorder, most rec ent episode (or current) mixed, moderate F31.62 and Mild cognitive impairment G31.84 [facility] [address] [id number] [address] [place] [id number] Jul, Bipolar I disorder, most rec ent episode (or current) mixed, moderate F31.62 and MCI (mild cognitive impairment) G31.84 [facility] [address] [id number] [address] [place] [id number] Jul, [facility] [address] [id number] [address] [place] [id number] Jul, [facility] [address] [id number] [address] [place] [id number] Jul, Bipolar I disorder, most rec ent episode (or current) mixed, moderate F31.62 [facility] [address] [id number] [address] [place] [id number] Jul, Chronic pain G89.29 [place] [address] [id number] [address] [place] [id number] Jun, Bipolar I disorder, most rec ent episode (or current) mixed, moderate F31.62 [facility] [address] [facility] [id number] [address] [place] [id number] Jun, Pre-procedure lab exam Z01.8 12 [facility] [address] [id number] [address] [place] [id number] Jun, [facility] [address] [id number] [place] [id number] Jun, [facility] [address] [facility] [id number] [address] [place] [id number] Jun, [facility] [address] [facility] [id number] [address] [place] [id number] Jun, Forgetfulness R68.89 ; Pre-s yncope R55 ; Localized edema R60.0 ; Other iron deficiency anemia D50.8 and BMI 50.0-59.9, adult Z68.43 [facility] [address] [id number] [address] [place] [id number] Jun, Chronic pain G89.29 [facility] [address] [facility] [id number] [address] [place] [id number] Jun, Chronic pain G89.29 [facility] [address] [place] [id number] [address] [place] [id number] Jun, Bipolar I disorder, most rec ent episode (or current) mixed, moderate F31.62 [place] [address] [place] [id number] [address] [place] [id number] May, Chronic pain G89.29 [facility] [address] [place] [id number] Apr, [place] [address] [address] Apr, Chronic pain G89.29 [place] [address] [address] Apr, Primary osteoarthritis of ri ght knee M17.11 [place] [address] [address] Mar, [place] [address] [address] Mar, BMI 50.0-59.9, adult Z68.43 and Bipolar disorder, in partial remission, most recent episode depressed F31.75 [place] [address] [address] Mar, Diabetes E11.9 ; Pure hyperc holesterolemia E78.00 ; Essential hypertension I10 ; Nausea with vomiting, unspecified R11.2 and Headache, unspecified headache type R51 [place] [address] [place] [id number] [place] [address] Mar, Bipolar I disorder, most rec ent episode (or current) mixed, moderate F31.62 [place] [address] [place] [id number] [address] [place] [id number] Mar, Bipolar I disorder, most rec ent episode (or current) mixed, moderate F31.62 [place] [address] [address] Mar, Chronic pain G89.29 [facility] [address] [id number] [address] [place] [id number] Mar, Bipolar I disorder, most rec ent episode (or current) mixed, moderate F31.62 [facility] [address] [facility] [id number] [address] [place] [id number] Feb, Bipolar I disorder, most rec ent episode (or current) mixed, moderate F31.62 [facility] [address] [facility] [id number] [address] [place] [id number] Feb, Chronic pain G89.29 [facility] [address] [facility] [id number] [address] [place] [id number] Feb, Decubitus ulcer of right josselin t, stage 3 L89.893 and BMI 50.0-59.9, adult Z68.43 [place] [address] [facility] [id number] [address] [place] [id number] Feb, Bipolar I disorder, most rec ent episode (or current) mixed, moderate F31.62 [place] [address] [facility] [id number] [address] [place] [id number] Feb, [facility] [address] [facility] [id number] [address] [place] [id number] January, [place] [address] [facility] [id number] [address] [place] [id number] January, Chronic pain G89.29 [facility] [address] [id number] [address] [place] [id number] January, Bipolar I disorder, most rec ent episode (or current) mixed, moderate F31.62 [facility] [address] [facility] [id number] [address] [place] [id number] January, Bipolar I disorder, most rec ent episode (or current) mixed, moderate F31.62 [place] [address] [facility] [id number] [address] [place] [id number] Dec, Bipolar I disorder, most rec ent episode (or current) mixed, moderate F31.62 and BMI 50.0-59.9, adult Z68.43 [facility] [address] [place] [id number] [place] [address] Dec, Bipolar I disorder, most rec ent episode (or current) mixed, moderate F31.62 [place] [address] [place] [id number] [address] [place] [id number] Dec, Chronic pain G89.29 [place] [address] [place] [id number] [place] [address] Dec, DM neuro manif type II E11.4 9 ; Right flank pain R10.9 ; 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 ; Encounter for medication monitoring Z51.81 and BMI 50.0-59.9, adult Z68.43 [place] [address] [place] [id number] [place] [address] Dec, Bipolar I disorder, most rec ent episode (or current) mixed, moderate F31.62 [place] [address] [address] Nov, Bipolar I disorder, most rec ent episode (or current) mixed, moderate F31.62 [place] [address] [place] [id number] [address] [place] [id number] Nov, Chronic pain G89.29 [place] [address] [place] [id number] [address] [place] [id number] Nov, Bipolar I disorder, most rec ent episode (or current) mixed, moderate F31.62 [place] [address] [place] [id number] [place] [address] Nov, Hypokalemia E87.6 [place] [address] [place] [id number] [address] [place] [id number] Nov, Bipolar I disorder, most rec ent episode (or current) mixed, moderate F31.62 [place] [address] [place] [address] Oct, Chronic pain G89.29 [place] [address] [address] Oct, BMI 50.0-59.9, adult Z68.43 and Bipolar I disorder, most recent episode (or current) mixed, moderate F31.62 [place] [address] [address] Oct, Bipolar I disorder, most rec ent episode (or current) mixed, moderate F31.62 [place] [address] [address] Oct, [place] [address] [address] Oct, Hypokalemia E87.6 [place] [address] [address] Oct, DM neuro manif type II E11.4 9 [place] [address] [address] Oct, Bipolar I disorder, most rec ent episode (or current) mixed, moderate F31.62 [place] [address] [address] Oct, Bipolar I disorder, most rec ent episode (or current) mixed, moderate F31.62 [place] [address] [address] 14 Oct, 2017 Hyperkalemia E87.5 ; Falling R29.6 ; BMI 50.0-59.9, adult Z68.43 and Acute left ankle pain M25.572 [place] [address] [address] 08 Oct, 2017 DM neuro manif type II E11.4 9 [place] [address] [place] [id number] [place] [address] Oct, [facility] [address] [address] Sep, Chronic pain G89.29 [facility] [address] [place] [id number] [address] [place] [address] Sep, [place] [address] [address] Sep, Bilateral primary osteoarthr itis of knee M17.0 [place] [address] [address] Sep, Generalized edema R60.1 [place] [address] [address] Sep, Bipolar I disorder, most rec ent episode (or current) mixed, moderate F31.62 [place] [address] [place] [id number] [address] [place] [address] Sep, Hypoxia R09.02 ; Other hyper volemia E87.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 ; Anemia of chronic illness D63.8 and BMI 50.0- 59.9, adult Z68.43 [place] [address] [place] [id number] [address] [place] [address] Sep, [place] [address] [address] Sep, Bipolar I disorder, most rec ent episode (or current) mixed, moderate F31.62 [place] [address] [place] [id number] [address] [place] [address] Aug, Chronic pain G89.29 [place] [address] [place] [id number] [address] [place] [address] Aug, Generalized edema R60.1 [place] [address] [place] [id number] [address] [place] [address] 18 Aug, 2017 [facility] [address] [facility] [id number] [address] [place] [address] 18 Aug, 2017 [facility] [address] [place] [id number] [address] [place] [address] 14 Aug, 2017 Bipolar I disorder, most rec ent episode (or current) mixed, moderate F31.62 [place] [address] [place] [id number] [address] [place] [address] Aug, Bipolar I disorder, most rec ent episode (or current) mixed, moderate F31.62 [place] [address] [place] [id number] [place] [address] 04 Aug, 2017 Chronic pain G89.29 [place] [address] [place] [id number] [place] [address] Jul, Bipolar I disorder, most rec ent episode (or current) mixed, moderate F31.62 [place] [address] [place] [id number] [address] [place] [address] 27 Jul, 2017 Bipolar I disorder, most rec ent episode (or current) mixed, moderate F31.62 and BMI 60.0-69.9, adult Z68.44 [place] [address] [place] [id number] [place] [address] 16 Jul, 2017 Bipolar I disorder, most rec ent episode (or current) mixed, moderate F31.62 [facility] [address] [place] [id number] [address] [place] [id number] 06 Jul, 2017 Chronic pain G89.29 [place] [address] [place] [id number] [place] [address] 02 Jul, 2017 Bipolar I disorder, most rec ent episode (or current) mixed, moderate F31.62 [facility] [address] [place] [id number] [address] [place] [address] Jun, Polyneuropathy associated wi th underlying disease G63 and Diabetes E11.9 [facility] [address] [id number] [address] [place] [address] 16 Jun, 2017 Bipolar I disorder, most rec ent episode (or current) mixed, moderate F31.62 [facility] [address] [facility] [id number] [address] [place] [address] 09 Jun, 2017 Chronic pain G89.29 [facility] [address] [id number] [address] [place] [address] May, Bipolar I disorder, most rec ent episode (or current) mixed, moderate F31.62 [facility] [address] [id number] [address] [place] [address] 21 May, 2017 Bipolar I disorder, most rec ent episode (or current) mixed, moderate F31.62 [place] [address] [facility] [id number] [address] [place] [address] 20 May, 2017 Diabetic polyneuropathy asso ciated with type 2 diabetes mellitus E11.42 [facility] [address] [id number] [address] [place] [id number] 18 May, 2017 Bipolar I disorder, most rec ent episode (or current) mixed, moderate F31.62 [place] [address] [id number] [address] [place] [address] 13 May, 2017 Bipolar I disorder, most rec ent episode (or current) mixed, moderate F31.62 [place] [address] [facility] [id number] [address] [place] [address] May, Chronic pain G89.29 [facility] [address] [id number] [address] [place] [address] Apr, Bipolar I disorder, most rec ent episode (or current) mixed, moderate F31.62 [facility] [address] [facility] [id number] [address] [place] [address] Apr, [facility] [address] [facility] [id number] [address] [place] [address] Apr, Chronic pain G89.29 and DM n euro manif type II E11.49 [facility] [address] [facility] [id number] [address] [place] [id number] Apr, [facility] [address] [facility] [id number] [address] [place] [address] Apr, Bipolar I disorder, most rec ent episode (or current) mixed, moderate F31.62 [facility] [address] [facility] [id number] [address] [place] [address] Apr, Chronic pain G89.29 [facility] [address] [id number] [address] [place] [address] Apr, Iliotibial band syndrome, le ft M76.32 [facility] [address] [facility] [id number] [address] [place] [address] Apr, Bipolar I disorder, most rec ent episode (or current) mixed, moderate F31.62 [facility] [address] [facility] [id number] [address] [place] [id number] Mar, Bipolar I disorder, most rec ent episode (or current) mixed, moderate F31.62 [facility] [address] [facility] [id number] [address] [place] [id number] Mar, Bipolar I disorder, most rec ent episode (or current) mixed, moderate F31.62 [facility] [address] [facility] [id number] [address] [place] [id number] Mar, [facility] [address] [facility] [id number] [address] [place] [id number] Mar, Bipolar I disorder, most rec ent episode (or current) mixed, moderate F31.62 [facility] [address] [facility] [id number] [address] [place] [phone] Mar, Chronic pain G89.29 [facility] [address] [facility] [id number] [address] [place] [id number] Mar, Bipolar I disorder, most rec ent episode (or current) mixed, moderate F31.62 [facility] [address] [id number] [address] [place] [id number] Mar, Bipolar I disorder, most rec ent episode (or current) mixed, moderate F31.62 [facility] [address] [facility] [id number] [address] [place] [id number] Mar, Acute pain of left knee M25. 562 ; Left hip pain M25.552 ; Generalized edema R60.1 and Tongue swelling R22.0 [facility] [address] [address] [id number] [address] [place] [id number] Mar, [facility] [address] [id number] [address] [place] [id number] Feb, Chronic pain G89.29 [facility] [address] [facility] [id number] [address] [place] [id number] Feb, Diabetes E11.9 [facility] [address] [facility] [id number] [address] [place] [id number] January, Chronic pain G89.29 [facility] [address] [facility] [id number] [address] [place] [id number] January, [facility] [address] [facility] [id number] [address] [place] [id number] January, Bipolar I disorder, most rec ent episode (or current) mixed, moderate F31.62 [facility] [address] [facility] [id number] [address] [place] [id number] Dec, Bipolar I disorder, most rec ent episode (or current) mixed, moderate F31.62 [facility] [address] [facility] [id number] [address] [place] [id number] Dec, Chronic pain G89.29 [facility] [address] [facility] [id number] [address] [place] [id number] Dec, Bipolar I disorder, most rec ent episode (or current) mixed, moderate F31.62 [facility] [address] [facility] [id number] [address] [place] [id number] Dec, Diabetes E11.9 ; Essential h ypertension I10 ; Chronic pain G89.29 and Morbid obesity E66.01 [facility] [address] [facility] [id number] [address] [place] [id number] Dec, [facility] [address] [facility] [id number] [address] [place] [id number] Dec, Bipolar I disorder, most rec ent episode (or current) mixed, moderate F31.62 [facility] [address] [id number] [address] [place] [id number] Dec, Bipolar I disorder, most rec ent episode (or current) mixed, moderate F31.62 [facility] [address] [facility] [id number] [address] [place] [id number] Nov, Chronic pain G89.29 [facility] [address] [facility] [id number] [address] [place] [id number] Nov, Bipolar I disorder, most rec ent episode (or current) mixed, moderate F31.62 [facility] [address] [id number] [address] [place] [id number] Nov, [facility] [address] [facility] [id number] [address] [place] [id number] Nov, Bipolar I disorder, most rec ent episode (or current) mixed, moderate F31.62 [facility] [address] [facility] [id number] [address] [place] [id number] Nov, Bipolar I disorder, most rec ent episode (or current) mixed, moderate F31.62 [facility] [address] [facility] [id number] [address] [place] [id number] Nov, [facility] [address] [facility] [id number] [address] [place] [id number] Nov, [facility] [address] [facility] [id number] [address] [place] [id number] Nov, [facility] [address] [place] [id number] [address] [place] [id number] Oct, Chronic pain G89.29 [facility] [address] [id number] [address] [place] [id number] Oct, Bipolar I disorder, most rec ent episode (or current) mixed, moderate F31.62 [facility] [address] [id number] [address] [place] [id number] Oct, [facility] [address] [facility] [id number] [address] [place] [id number] Oct, Chronic pain G89.29 ; Diabet es E11.9 ; Anxiety F41.9 and 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 [facility] [address] [facility] [id number] [address] [place] [id number] Oct, [facility] [address] [facility] [id number] [address] [place] [id number] Oct, Diabetes E11.9 [facility] [address] [facility] [id number] [address] [place] [id number] Oct, Bipolar I disorder, most rec ent episode (or current) mixed, moderate F31.62 [facility] [address] [facility] [id number] [address] [place] [id number] Sep, Chronic pain G89.29 [facility] [address] [facility] [id number] [address] [place] [id number] Sep, Chronic pain G89.29 [facility] [address] [facility] [id number] [address] [place] [id number] Aug, Chronic pain G89.29 [facility] [address] [facility] [id number] [address] [place] [phone] Jul, [facility] [address] [facility] [id number] [address] [place] [id number] Jul, Diabetes E11.9 [facility] [address] [place] [id number] [address] [place] [id number] Jul, Chronic pain G89.29 [facility] [address] [place] [id number] [address] [place] [id number] Jul, Bipolar I disorder, most rec ent episode (or current) mixed, moderate F31.62 [facility] [address] [place] [id number] [address] [place] [id number] Jun, Bipolar I disorder, most rec ent episode (or current) mixed, moderate F31.62 [facility] [address] [place] [id number] [address] [place] [id number] Jun, [facility] [address] [place] [id number] [place] [phone] Jun, Bipolar I disorder, most rec ent episode (or current) mixed, moderate F31.62 [place] [address] [place] [id number] [address] [place] [id number] May, Insomnia, unspecified type G 47.00 [facility] [address] [place] [id number] [address] [place] [id number] May, Bipolar I disorder, most rec ent episode (or current) mixed, moderate F31.62 [facility] [address] [place] [id number] [address] [place] [id number] 14 May, 2016 [facility] [address] [place] [id number] [address] [place] [id number] 08 May, 2016 Bipolar I disorder, most rec ent episode (or current) mixed, moderate F31.62 [facility] [address] [place] [id number] [address] [place] [id number] 06 May, 2016 Diabetes E11.9 and Essential hypertension I10 [facility] [address] [facility] [id number] [address] [place] [id number] Apr, Chronic pain G89.29 [facility] [address] [place] [id number] [address] [place] [id number] Apr, Bipolar I disorder, most rec ent episode (or current) mixed, moderate F31.62 [facility] [address] [id number] [address] [place] [id number] Apr, [place] [address] [facility] [id number] [address] [place] [id number] Apr, [facility] [address] [facility] [id number] [address] [place] [id number] Mar, Chronic pain G89.29 ; Headac he, unspecified headache type R51 ; Neuropathy G62.9 ; Pain of right hip joint M25.551 and Essential hypertension I10 [place] [address] [facility] [id number] [address] [place] [id number] Mar, Chronic pain G89.29 [place] [address] [facility] [id number] [address] [place] [id number] Mar, Bipolar I disorder, most rec ent episode (or current) mixed, moderate F31.62 [place] [address] [facility] [id number] [address] [place] [id number] Feb, Bipolar I disorder, most rec ent episode (or current) mixed, moderate F31.62 and Insomnia, unspecified type G47.00 [place] [address] [facility] [id number] [address] [place] [id number] Feb, Chronic pain G89.29 [place] [address] [facility] [id number] [address] [place] [id number] Feb, Bipolar I disorder, most rec ent episode (or current) mixed, moderate F31.62 [place] [address] [id number] [address] [place] [id number] January, Bipolar I disorder, most rec ent episode (or current) mixed, moderate F31.62 [place] [address] [facility] [id number] [address] [place] [id number] January, Chronic pain G89.29 [place] [address] [facility] [id number] [address] [place] [id number] January, Chronic pain G89.29 and Esse ntial hypertension I10 [facility] [address] [place] [address] January, Bipolar I disorder, most rec ent episode (or current) mixed, moderate F31.62 [facility] [address] [place] [id number] [address] [place] [id number] Dec, [facility] [address] [facility] [id number] [address] [place] [id number] Dec, [facility] [address] [facility] [id number] [address] [place] [id number] Dec, [facility] [address] [place] [id number] [address] [place] [id number] Dec, [facility] [address] [place] [id number] [address] [place] [id number] Nov, Reactive airway disease J45. 909 [facility] [address] [place] [id number] [address] [place] [id number] Nov, [facility] [address] [place] [id number] [address] [place] [id number] Nov, [facility] [address] [place] [id number] [address] [place] [phone] Nov, [facility] [address] [place] [id number] Nov, [facility] [address] [place] [id number] [address] [place] [id number] Nov, Onychomycosis B35.1 ; Hammer toe M20.40 ; Alma or callus L84 and DM neuro manif type II E11.49 [facility] [address] [place] [id number] [address] [place] [id number] 15 Nov, 2015 Chronic pain G89.29 ; Leukoc ytosis D72.829 and Diabetes E11.9 [facility] [address] [address] Nov, [facility] [address] [address] Oct, Bronchitis J40 [facility] [address] [address] Oct, [facility] [address] [address] Oct, [facility] [address] [address] Oct, Mastoiditis, unspecified lat erality H70.90 and Type 2 diabetes mellitus with complication E11.8 [place] [address] [address] Sep, [place] [address] [address] Sep, Dysuria R30.0 ; Cough R05 ; Benign prostatic hyperplasia with lower urinary tract symptoms, unspecified morphology N40.1 ; Hypokalemia E87.6 and Eustachian tube dysfunction, unspecified laterality H69.80 [place] [address] [address] Sep, Moderate mixed bipolar I dis order F31.62 [place] [address] [address] Sep, Hypokalemia E87.6 [place] [address] [address] Sep, [place] [address] [address] Sep, Upper respiratory tract infe ction, unspecified type J06.9 [facility] [address] [address] Aug, [facility] [address] [place] [address] Aug, Dysuria R30.0 [facility] [address] [id number] [address] [place] [id number] Aug, [facility] [address] [id number] [address] [place] [id number] Jul, [facility] [address] [id number] [address] [place] [id number] Jul, [facility] [address] [id number] [address] [place] [id number] Jul, [facility] [address] [id number] [address] [place] [phone] Jul, [facility] [address] [id number] [address] [place] [id number] Jun, [facility] [address] [id number] [address] [place] [phone] Jun, [facility] [address] [id number] [address] [place] [id number] Jun, [facility] [address] [id number] [address] [place] [phone] May, [facility] [address] [id number] [address] [place] [id number] May, Bipolar I disorder, most rec ent episode (or current) mixed, moderate 296.62 [facility] [address] [id number] [address] [place] [id number] 16 May, 2015 [facility] [address] [id number] [address] [place] [id number] May, Bipolar I disorder, most rec ent episode (or current) mixed, moderate 296.62 and Major depressive disorder, recurrent episode, severe, specified as with psychotic behavior 296.34 [facility] [address] [id number] [address] [place] [id number] May, Bipolar I disorder, most rec ent episode (or current) mixed, moderate 296.62 [facility] [address] [facility] [id number] [address] [place] [id number] May, [facility] [address] [place] [id number] [address] [place] [id number] Apr, [facility] [address] [place] [id number] [address] [place] [phone] Apr, [facility] [address] [place] [id number] [address] [place] [id number] Apr, Unspecified disorder of kidn ey and ureter 593.9 and Diabetes mellitus type 2, uncontrolled 250.02 [facility] [address] [place] [id number] [address] [place] [id number] Apr, [facility] [address] [place] [id number] [address] [place] [phone] Apr, [facility] [address] [place] [id number] [address] [place] [id number] Apr, [facility] [address] [place] [id number] [address] [place] [id number] Apr, [facility] [address] [place] [id number] [address] [place] [address] Apr, Diabetes mellitus type II, u ncontrolled 250.02 [facility] [address] [place] [id number] [address] [place] [id number] Apr, [facility] [address] [place] [id number] [address] [place] [phone] Mar, [facility] [address] [place] [id number] [address] [place] [id number] Mar, [facility] [address] [place] [id number] [address] [place] [id number] Mar, [facility] [address] [place] [id number] [address] [place] [id number] Mar, Major depressive disorder, r ecurrent episode, severe, specified as with psychotic behavior 296.34 and Bipolar I disorder, most recent episode (or current) mixed, moderate 296.62 [facility] [address] [place] [id number] [address] [place] [address] Mar, Diabetes 250.00 ; Anuria 788 .5 ; Nausea and vomiting 787.01 and Diarrhea 787.91 [facility] [address] [facility] [id number] [address] [place] [address] Mar, Diabetes 250.00 [facility] [address] [place] [id number] [address] [place] [id number] Mar, [facility] [address] [place] [id number] [address] [place] [address] Mar, Diabetes 250.00 [facility] [address] [place] [id number] [address] [place] [id number] Mar, [facility] [address] [place] [id number] [address] [place] [phone] Mar, [facility] [address] [place] [id number] [address] [place] [phone] Mar, [facility] [address] [place] [id number] [address] [place] [id number] Mar, [facility] [address] [place] [id number] [address] [place] [id number] Mar, Bipolar I disorder, most rec ent episode (or current) mixed, moderate 296.62 and Major depressive disorder, recurrent episode, severe, specified as with psychotic behavior 296.34 [facility] [address] [place] [id number] [address] [place] [address] Mar, Magnesium deficiency 275.2 ; Hypokalemia 276.8 ; Nausea & vomiting 787.01 and Diabetes mellitus type 2, uncontrolled 250.02 [facility] [address] [place] [id number] [address] [place] [phone] Feb, [facility] [address] [address] Feb, Bipolar I disorder, most rec ent episode (or current) mixed, moderate 296.62 [place] [address] [address] Feb, Nausea and vomiting 787.01 ; Left elbow pain 719.42 ; Anuria 788.5 and Diabetes 250.[address] [address] Feb, [address] [address] Feb, Hypopotassemia 276.8 and Hyp okalemia 276.[address] [address] Feb, Hypopotassemia 276.8 and Hyp okalemia 276.[address] [address] Feb, Seborrheic keratoses 702.19 [place] [address] [address] Feb, Hypopotassemia 276.8 and Low magnesium levels 275.2 [place] [address] [address] January, [place] [address] [address] January, [place] [address] [address] January, [place] [address] [address] January, Scalp lesion 709.9 [place] [address] [address] January, [place] [address] [address] Dec, Tear of medial cartilage or meniscus of knee, current 836.0 and 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 [facility] [address] [id number] [address] [place] [id number] Dec, [facility] [address] [id number] [address] [place] [id number] Dec, [facility] [address] [id number] [address] [place] [id number] Dec, Squamous cell carcinoma, 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 [facility] [address] [id number] [address] [place] [id number] Dec, [facility] [address] [id number] [address] [place] [id number] Dec, [facility] [address] [id number] [address] [place] [id number] Nov, [facility] [address] [id number] [address] [place] [id number] Nov, [facility] [address] [id number] [address] [place] [phone] Nov, [facility] [address] [id number] [address] [place] [id number] Nov, [facility] [address] [id number] [address] [place] [id number] Nov, [facility] [address] [id number] [address] [place] [id number] Nov, [facility] [address] [id number] [address] [place] [id number] Nov, [facility] [address] [id number] [address] [place] [id number] Nov, [facility] [address] [id number] [address] [place] [id number] Nov, [facility] [address] [id number] [address] [place] [address], [place] [address] Nov, [facility] [address] [id number] [address] [place] [address], [place] [address] Nov, [facility] [address] [id number] [address] [place] [address], [place] [address] Nov, [facility] [address] [id number] [address] [place] [address], [place] [address] Oct, 2014 [facility] [address] [id number] [address] [place] [address], [place] [address] Oct, 2014 [facility] [address] [id number] [address] [place] [address], [place] [address] Oct, 2014 [facility] [address] [id number] [address] [place] [address], [place] [address] Oct, 2014 [facility] [address] [id number] [address] [place] [address], [place] [address] Oct, 2014 [facility] [address] [id number] [address] [place] [address], [place] [address] Oct, 2014 [facility] [address] [id number] [address] [place] [address], [place] [address] Oct, 2014 [facility] [address] [id number] [address] [place] [address], [place] [address] Oct, [facility] [address] [id number] [address] [place] [address], [place] [address] Oct, [facility] [address] [id number] [address] [place] [address], [place] [address] Sep, [facility] [address] [id number] [address] [place] [address], [place] [address] Sep, [facility] [address] [id number] [address] [place] [address], [place] [address] Sep, [facility] [address] [id number] [address] [place] [address], [place] [address] Sep, [facility] [address] [id number] [address] [place] [address], [place] [address] Sep, [facility] [address] [id number] [address] [place] [address], [place] [address] Sep, [facility] [address] [id number] [address] [place] [address], [place] [address] Sep, [facility] [address] [id number] [address] [place] [address], [place] [address] Sep, [facility] [address] [id number] [address] [place] [address], [place] [address] Sep, [facility] [address] [id number] [address] [place] [address], [place] [address] Sep, [facility] [address] [id number] [address] [place] [address], [place] [address] Sep, [facility] [address] [id number] [address] [place] [address], [place] [address] Sep, [facility] [address] [id number] [address] [place] [address], [place] [address] Sep, [facility] [address] [id number] [address] [place] [address], [place] [address] Sep, [facility] [address] [id number] [address] [place] [address], [place] [address] Sep, [facility] [address] [id number] [address] [place] [address], [place] [address] Sep, [facility] [address] [id number] [address] [place] [address], [place] [address] Aug, [facility] [address] [id number] [address] [place] [address], [place] [address] Aug, [facility] [address] [id number] [address] [place] [address], [place] [address] Aug, [facility] [address] [id number] [address] [place] [address] Aug, [facility] [address] [id number] [facility] [place] [address] Aug, [facility] [address] [id number] [address] [place] [address], [place] [address] Aug, [facility] [address] [address] [id number] [address] [place] [address], [place] [address] Aug, [facility] [address] [id number] [address] [place] [address], [place] [address] Aug, [facility] [address] [id number] [address] [place] [address], [place] [address] Aug, [facility] [address] [id number] [address] [place] [address], [place] [address] Aug, [facility] [address] [id number] [address] [place] [address], [place] [address] Aug, [facility] [place] [id number] Aug, [facility] [address] [id number] [address] [place] [address], [place] [address] Aug, [facility] [address] [id number] [address] [place] [address], [place] [address] Aug, [facility] [address] [id number] [address] [place] [address], [place] [address] Aug, [facility] [address] [id number] [address] [place] [address], [place] [address] Aug, [facility] [address] [id number] [address] [place] [address], [place] [address] Aug, [facility] [address] [id number] [address] [place] [address], [place] [address] Aug, [facility] [address] [id number] [address] [place] [address], [place] [address] Aug, [facility] [address] [id number] [address] [place] [address], [place] [address] 08 Aug, 2014 [facility] [address] [id number] [address] [place] [address], [place] [address] Aug, [facility] [address] [id number] [address] [place] [address], [place] [address] Aug, [facility] [address] [id number] [address] [place] [address], [place] [address] Aug, [facility] [address] [id number] [address] [place] [address], [place] [address] Aug, [facility] [address] [id number] [address] [place] [address], [place] [address] Aug, [facility] [address] [id number] [address] [place] [address], [place] [address] Aug, [facility] [address] [id number] [address] [place] [address], [place] [address] Aug, [facility] [address] [id number] [address] [place] [address], [place] [address] Aug, [facility] [address] [id number] [address] [place] [address], [place] [address] Aug, [facility] [address] [id number] [address] [place] [address], [place] [address] Aug, [facility] [address] [id number] [address] [place] [address], [place] [address] Jul, [facility] [address] [id number] [address] [place] [address], [place] [address] Jul, [facility] [address] [id number] [address] [place] [address], [place] [address] Jul, [facility] [address] [id number] [address] [place] [address], [place] [address] Jul, [facility] [address] [id number] [address] [place] [address], [place] [address] Jul, [facility] [address] [id number] [address] [place] [address], [place] [address] Jul, [facility] [address] [id number] [address] [place] [address], [place] [address] Jul, [facility] [address] [id number] [address] [place] [address], [place] [address] Jul, [facility] [address] [id number] [address] [place] [address], [place] [address] Jul, [facility] [address] [id number] [address] [place] [address], [place] [address] Jul, [facility] [address] [id number] [address] [place] [address], [place] [address] Jun, [facility] [address] [id number] [address] [place] [address], [place] [address] Jun, [facility] [address] [id number] [address] [place] [address] Jun, [facility] [address] [id number] [address] [place] [address], [place] [address] Jun, [facility] [address] [id number] [address] [place] [address] Jun, [facility] [address] [id number] [address] [place] [address] Jun, [facility] [address] [id number] [address] [place] [address] Jun, [facility] [address] [id number] [address] [place] [address], [place] [address] Jun, [facility] [address] [id number] [address] [place] [address] Jun, [facility] [address] [id number] [address] [place] [address], [place] [address] Jun, [facility] [address] [id number] [address] [place] [address], [place] [address] 29 Sep, 2013 [facility] [address] [id number] [address] [place] [address], [place] [address] 29 Sep, 2013 [facility] [address] [id number] [facility] [place] [address] 26 Sep, 2013 [facility] [address] [id number] [address] [place] [address], [place] [address] 26 Sep, 2013 [facility] [address] [id number] [address] [place] [address], [place] [address] 17 Sep, 2013 [facility] [address] [id number] [address] [place] [address], [place] [address] 17 Sep, 2013 [facility] [address] [id number] [address] [place] [address], [place] [address] 15 Sep, 2013 [facility] [address] [id number] [address] [place] [address], [place] [address] 15 Sep, 2013 [facility] [address] [id number] [address] [place] [address], [place] [address] 15 Sep, 2013 [facility] [address] [id number] [address] [place] [address], [place] [address] 15 Sep, 2013 [facility] [address] [id number] [address] [place] [address], [place] [address] 10 Sep, 2013 [facility] [address] [id number] [address] [place] [address], [place] [address] 10 Sep, 2013 [facility] [address] [id number] [address] [place] [address], [place] [address] 09 Sep, 2013 [facility] [address] [id number] [address] [place] [address], [place] [address] 09 Sep, 2013 [facility] [address] [id number] [address] [place] [address], [place] [address] 04 Sep, 2013 [facility] [address] [id number] [address] [place] [address], [place] [address] 04 Sep, 2013 [facility] [address] [id number] [facility] [place] [address] Apr, [facility] [address] [id number] [facility] [place] [address] Apr, [facility] [address] [id number] [facility] [place] [address] Apr, [facility] [address] [id number] [facility] [place] [address] Apr, [facility] [address] [id number] [facility] [place] [address] Apr, [facility] [address] [id number] [address] [place] [address], [place] [address] Apr, [facility] [address] [id number] [address] [place] [address], [place] [address] Apr, [facility] [address] [id number] [address] [place] [address], [place] [address] Apr, [facility] [address] [id number] [address] [place] [address], [place] [address] Apr, [facility] [address] [id number] [address] [place] [address], [place] [address] Apr, [facility] [address] [id number] [address] [place] [address], [place] [address] Apr, [facility] [address] [id number] [address] [place] [address], [place] [address] Apr, [facility] [address] [id number] [address] [place] [address], [place] [address] Apr, [facility] [address] [id number] [address] [place] [address], [place] [address] Apr, [facility] [address] [id number] [address] [place] [address], [place] [address] Apr, [facility] [address] [id number] [address] [place] [address], [place] [address] Mar, 2013 [facility] [address] [id number] [facility] [place] [address] Mar, 2013 [facility] [address] [id number] [address] [place] [address], [place] [address] Mar, 2013 [facility] [address] [id number] [address] [place] [address], [place] [address] Mar, 2013 [facility] [address] [id number] [address] [place] [address], [place] [address] Mar, 2013 [facility] [address] [id number] [address] [place] [address], [place] [address] Mar, 2013 [facility] [address] [id number] [address] [place] [address], [place] [address] Mar, 2013 [facility] [address] [id number] [address] [place] [address], [place] [address] Mar, 2013 [facility] [address] [id number] [address] [place] [address], [place] [address] Mar, 2013 [facility] [address] [id number] [address] [place] [address], [place] [address] Mar, 2013 [facility] [address] [id number] [address] [place] [address], [place] [address] Mar, 2013 [facility] [address] [id number] [address] [place] [address], [place] [address] Mar, 2013 [facility] [address] [id number] [address] [place] [address], [place] [address] Mar, 2013 [facility] [address] [id number] [address] [place] [address], [place] [address] Mar, 2013 [facility] [address] [id number] [address] [place] [address], [place] [address] Mar, 2013 [facility] [address] [id number] [address] [place] [address], [place] [address] Mar, 2013 [facility] [address] [id number] [facility] [place] [address] Mar, [facility] [address] [id number] [facility] [place] [address] Mar, [facility] [address] [id number] [facility] [place] [address] Feb, [facility] [address] [id number] [address] [place] [address], [place] [address] Feb, [facility] [address] [id number] [address] [place] [address], [place] [address] Feb, [facility] [address] [id number] [address] [place] [address], [place] [address] Feb, [facility] [address] [id number] [address] [place] [address], [place] [address] Feb, [facility] [address] [id number] [address] [place] [address], [place] [address] Feb, [facility] [address] [id number] [address] [place] [address], [place] [address] Feb, [facility] [address] [id number] [address] [place] [address], [place] [address] Feb, [facility] [address] [id number] [address] [place] [address], [place] [address] Feb, [facility] [address] [id number] [address] [place] [address], [place] [address] Feb, [facility] [address] [id number] [address] [place] [address], [place] [address] Feb, [facility] [address] [id number] [address] [place] [address], [place] [address] Feb, [facility] [address] [id number] [address] [place] [address], [place] [address] Feb, [facility] [address] [id number] [address] [place] [address], [place] [address] Feb, [facility] [address] [id number] [address] [place] [address], [place] [address] January, [facility] [address] [id number] [address] [place] [address], [place] [address] January, [facility] [address] [id number] [address] [place] [address], [place] [address] January, [facility] [address] [id number] [address] [place] [address], [place] [address] January, [facility] [address] [id number] [address] [place] [address], [place] [address] January, [facility] [address] [id number] [address] [place] [address], [place] [address] January, [facility] [address] [id number] [address] [place] [address], [place] [address] January, [facility] [address] [id number] [address] [place] [address], [place] [address] January, [facility] [address] [id number] [address] [place] [address], [place] [address] January, [facility] [address] [id number] [address] [place] [address], [place] [address] January, [facility] [address] [id number] [address] [place] [address], [place] [address] January, [facility] [address] [id number] [address] [place] [address], [place] [address] January, [facility] [address] [id number] [address] [place] [address], [place] [address] January, [facility] [address] [id number] [address] [place] [address], [place] [address] January, [facility] [address] [id number] [address] [place] [address], [place] [address] Dec, [facility] [address] [id number] [address] [place] [address], [place] [address] Dec, [facility] [address] [id number] [facility] [place] [address] Dec, [facility] [address] [id number] [address] [place] [address], [place] [address] Dec, [facility] [address] [id number] [address] [place] [address], [place] [address] Dec, [facility] [address] [id number] [address] [place] [address], [place] [address] Dec, [facility] [address] [id number] [address] [place] [address], [place] [address] Dec, [facility] [address] [id number] [address] [place] [address], [place] [address] Dec, [facility] [address] [id number] [address] [place] [address], [place] [address] Dec, [facility] [address] [id number] [address] [place] [address], [place] [address] Dec, [facility] [address] [id number] [address] [place] [address], [place] [address] Nov, [facility] [address] [id number] [address] [place] [address], [place] [address] Nov, [facility] [address] [id number] [address] [place] [address], [place] [address] Nov, [facility] [address] [id number] [address] [place] [address], [place] [address] Nov, [facility] [address] [id number] [address] [place] [address], [place] [address] Nov, [facility] [address] [id number] [address] [place] [address], [place] [address] Nov, [facility] [address] [id number] [address] [place] [address], [place] [address] Nov, [facility] [address] [id number] [facility] [place] [address] Nov, [facility] [address] [id number] [address] [place] [address], [place] [address] Nov, [facility] [address] [id number] [facility] [place] [address] Nov, [facility] [address] [id number] [address] [place] [address], [place] [address] Oct, [facility] [address] [id number] [address] [place] [address], [place] [address] Oct, [facility] [address] [id number] [address] [place] [address], [place] [address] Oct, [facility] [address] [id number] [address] [place] [address], [place] [address] Oct, [facility] [address] [id number] [address] [place] [address], [place] [address] Oct, [facility] [address] [id number] [address] [place] [address], [place] [address] Oct, [facility] [address] [id number] [address] [place] [address], [place] [address] Oct, [facility] [address] [id number] [address] [place] [address], [place] [address] Oct, [facility] [address] [id number] [address] [place] [address], [place] [address] Oct, [facility] [address] [id number] [address] [place] [address], [place] [address] Oct, [facility] [address] [id number] [address] [place] [address], [place] [address] Oct, [facility] [address] [id number] [address] [place] [address], [place] [address] Oct, [facility] [address] [id number] [address] [place] [address], [place] [address] Oct, [facility] [address] [id number] [address] [place] [address], [place] [address] Oct, [facility] [address] [id number] [address] [place] [address], [place] [address] Sep, [facility] [address] [id number] [address] [place] [address], [place] [address] Sep, [facility] [address] [id number] [address] [place] [address], [place] [address] 15 Sep, 2013 [facility] [address] [id number] [address] [place] [address], [place] [address] 15 Sep, 2013 [facility] [address] [id number] [address] [place] [address], [place] [address] Sep, [facility] [address] [id number] [address] [place] [address], [place] [address] Sep, [facility] [address] [id number] [address] [place] [address], [place] [address] Sep, [facility] [address] [id number] [address] [place] [address], [place] [address] Sep, [facility] [address] [id number] [address] [place] [address], [place] [address] Sep, [facility] [address] [id number] [address] [place] [address], [place] [address] Sep, [facility] [address] [id number] [address] [place] [address], [place] [address] Aug, [facility] [address] [id number] [address] [place] [address], [place] [address] Aug, [facility] [address] [id number] [address] [place] [address], [place] [address] Jul, [facility] [address] [id number] [address] [place] [address], [place] [address] Jul, [facility] [address] [id number] [address] [place] [address], [place] [address] Jul, [facility] [address] [id number] [address] [place] [address], [place] [address] Jul, [facility] [address] [id number] [address] [place] [address], [place] [address] Jul, [facility] [address] [id number] [address] [place] [address], [place] [address] Jul, [facility] [address] [id number] [address] [place] [address], [place] [address] Jul, [facility] [address] [id number] [address] [place] [address], [place] [address] Jul, [facility] [address] [id number] [address] [place] [address], [place] [address] Jul, [facility] [address] [id number] [address] [place] [address], [place] [address] Jul, [facility] [address] [id number] [address] [place] [address], [place] [address] Jul, [facility] [address] [id number] [address] [place] [address], [place] [address] Jul, [facility] [address] [id number] [address] [place] [address], [place] [address] Jul, [facility] [address] [id number] [address] [place] [address], [place] [address] Jul, [facility] [address] [id number] [address] [place] [address], [place] [address] Jul, [facility] [address] [id number] [address] [place] [address], [place] [address] Jul, [facility] [address] [id number] [address] [place] [address], [place] [address] Jul, [facility] [address] [id number] [address] [place] [address], [place] [address] Jul, [facility] [address] [id number] [address] [place] [address], [place] [address] Jul, [facility] [address] [id number] [address] [place] [address], [place] [address] Jun, 2012 [facility] [address] [id number] [address] [place] [address], [place] [address] Jun, 2012 [facility] [address] [id number] [address] [place] [id number] Jun, 2012 [facility] [address] [id number] [address] [place] [address], [place] [address] Jun, 2012 [facility] [address] [id number] [address] [place] [address], [place] [address] Jun, [facility] [address] [id number] [address] [place] [address], [place] [address] Jun, [facility] [address] [id number] [address] [place] [id number] Jun, [facility] [address] [id number] [address] [place] [address] Jun, [facility] [address] [id number] [address] [place] [id number] Jun, [facility] [address] [id number] [address] [place] [id number] Jun, [facility] [address] [id number] [address] [place] [id number] Jun, [facility] [address] [id number] [address] [place] [address], [place] [address] May, 2012 [facility] [address] [id number] [address] [place] [address], [place] [address] 25 May, 2012 [facility] [address] [id number] [address] [place] [address], [place] [address] 19 May, 2013 [facility] [address] [id number] [facility] [place] [address] 17 May, 2012 [facility] [address] [id number] [address] [place] [address], [place] [address] 11 May, 2012 [facility] [address] [id number] [address] [place] [address], [place] [address] 10 May, 2012 [facility] [address] [id number] [address] [place] [address], [place] [address] 09 May, 2013 [facility] [address] [id number] [address] [place] [address], [place] [address] 05 May, 2013 [facility] [address] [id number] [address] [place] [address], [place] [address] Apr, [facility] [address] [id number] [address] [place] [address], [place] [address] Apr, [facility] [address] [id number] [address] [place] [address], [place] [address] Apr, [facility] [address] [id number] [address] [place] [address], [place] [address] Apr, [facility] [address] [id number] [address] [place] [address], [place] [address] Apr, [facility] [address] [id number] [address] [place] [address], [place] [address] Mar, [facility] [address] [id number] [address] [place] [address], [place] [address] Mar, [facility] [address] [id number] [address] [place] [address], [place] [address] Mar, [facility] [address] [id number] [address] [place] [address], [place] [address] Mar, [facility] [address] [id number] [address] [place] [address], [place] [address] Mar, [facility] [address] [id number] [address] [place] [address], [place] [address] Mar, [facility] [address] [id number] [address] [place] [address], [place] [address] Mar, [facility] [address] [id number] [address] [place] [address], [place] [address] Mar, [facility] [address] [id number] [address] [place] [address], [place] [address] Feb, [facility] [address] [id number] [address] [place] [address], [place] [address] Feb, [facility] [address] [id number] [address] [place] [address], [place] [address] January, [facility] [address] [id number] [address] [place] [address], [place] [address] January, [facility] [address] [id number] [address] [place] [address], [place] [address] Dec, [facility] [address] [id number] [address] [place] [address], [place] [address] Dec, [facility] [address] [id number] [address] [place] [address], [place] [address] Nov, [facility] [address] [id number] [address] [place] [address], [place] [address] Nov, [facility] [address] [id number] [address] [place] [address], [place] [address] Nov, [facility] [address] [id number] [address] [place] [address], [place] [address] Nov, [facility] [address] [id number] [address] [place] [address], [place] [address] Oct, [facility] [address] [id number] [address] [place] [address], [place] [address] Oct, [facility] [address] [id number] [address] [place] [address], [place] [address] Oct, [facility] [address] [id number] [address] [place] [address], [place] [address] 26 Oct, 2012 [facility] [address] [id number] [address] [place] [address], [place] [address] 16 Oct, 2012 [facility] [address] [id number] [address] [place] [address], [place] [address] 14 Oct, 2012 [facility] [address] [id number] [address] [place] [address], [place] [address] 08 Oct, 2012 [facility] [address] [id number] [address] [place] [address], [place] [address] 07 Oct, 2012 [facility] [address] [id number] [address] [place] [address], [place] [address] 03 Oct, 2012 [facility] [address] [id number] [address] [place] [address], [place] [address] 30 Sep, 2012 [facility] [address] [id number] [address] [place] [address], [place] [address] Sep, [facility] [address] [id number] [address] [place] [address], [place] [address] Sep, [facility] [address] [id number] [address] [place] [address], [place] [address] Sep, [facility] [address] [id number] [address] [place] [address], [place] [address] 17 Sep, 2012 [facility] [address] [id number] [address] [place] [address], [place] [address] Sep, [facility] [address] [id number] [address] [place] [address], [place] [address] 09 Sep, 2012 [facility] [address] [id number] [address] [place] [address], [place] [address] 08 Sep, 2012 [facility] [address] [id number] [address] [place] [address], [place] [address] Aug, [facility] [address] [id number] [address] [place] [address], [place] [address] Aug, [facility] [address] [id number] [address] [place] [address], [place] [address] Aug, [facility] [address] [id number] [address] [place] [address], [place] [address] Aug, [facility] [address] [id number] [address] [place] [address], [place] [address] Aug, [facility] [address] [id number] [address] [place] [address], [place] [address] Aug, [facility] [address] [id number] [address] [place] [address], [place] [address] Aug, [facility] [address] [id number] [address] [place] [address], [place] [address] Aug, [facility] [address] [id number] [address] [place] [address], [place] [address] Jul, [facility] [address] [id number] [address] [place] [address], [place] [address] Jul, [facility] [address] [id number] [address] [place] [address], [place] [address] Jul, [facility] [address] [id number] [address] [place] [address], [place] [address] Jul, [facility] [address] [id number] [address] [place] [address], [place] [address] Jul, [facility] [address] [id number] [address] [place] [address], [place] [address] Jul, [facility] [address] [id number] [address] [place] [address], [place] [address] Jun, [facility] [address] [id number] [address] [place] [address], [place] [address] Jun, [facility] [address] [id number] [address] [place] [address], [place] [address] Jun, [facility] [address] [id number] [address] [place] [address] [place] [address] 23 Jun, 2012 [facility] [address] [id number] [address] [place] [address], [place] [address] Jun, [facility] [address] [id number] [address] [place] [address], [place] [address] Jun, [facility] [address] [id number] [address] [place] [address], [place] [address] Jun, [facility] [address] [id number] [address] [place] [address], [place] [address] 10 Jun, 2012 [facility] [address] [id number] [address] [place] [address], [place] [address] 10 Jun, 2012 [facility] [address] [id number] [address] [place] [address], [place] [address] 26 May, 2012 [facility] [address] [id number] [address] [place] [address], [place] [address] 24 May, 2012 [facility] [address] [id number] [address] [place] [address], [place] [address] 18 May, 2012 [facility] [address] [id number] [address] [place] [address], [place] [address] 30 Apr, 2012 [facility] [address] [id number] [address] [place] [address], [place] [address] 29 Apr, 2012 [facility] [address] [id number] [address] [place] [address], [place] [address] Apr, [facility] [address] [id number] [address] [place] [address], [place] [address] 14 Apr, 2012 [facility] [address] [id number] [address] [place] [address], [place] [address] Apr, [facility] [address] [id number] [address] [place] [address], [place] [address] Apr, [facility] [address] [id number] [address] [place] [address], [place] [address] Mar, [facility] [address] [id number] [address] [place] [address], [place] [address] Mar, [facility] [address] [id number] [address] [place] [address], [place] [address] Mar, [facility] [address] [id number] [address] [place] [address], [place] [address] Mar, [facility] [address] [id number] [address] [place] [address], [place] [address] Feb, [facility] [address] [id number] [address] [place] [address], [place] [address] Feb, [facility] [address] [id number] [address] [place] [address], [place] [address] Feb, [facility] [address] [id number] [address] [place] [address], [place] [address] Feb, [facility] [address] [id number] [address] [place] [address], [place] [address] Feb, [facility] [address] [id number] [address] [place] [address], [place] [address] January, [facility] [address] [id number] [address] [place] [address], [place] [address] January, [facility] [address] [id number] [address] [place] [address], [place] [address] January, [facility] [address] [id number] [address] [place] [address], [place] [address] January, [facility] [address] [id number] [address] [place] [address], [place] [address] January, [facility] [address] [id number] [address] [place] [address], [place] [address] January, [facility] [address] [id number] [address] [place] [address], [place] [address] Dec, [facility] [address] [id number] [address] [place] [address], [place] [address] Dec, 2011 [facility] [address] [id number] [address] [place] [address], [place] [address] 17 Dec, 2011 [facility] [address] [id number] [address] [place] [address], [place] [address] 09 Dec, 2011 [facility] [address] [id number] [address] [place] [address], [place] [address] 06 Dec, 2011 [facility] [address] [id number] [address] [place] [address], [place] [address] 27 Nov, 2011 [facility] [address] [id number] [address] [place] [address], [place] [address] 14 Nov, 2011 [facility] [address] [id number] [address] [place] [address], [place] [address] Nov, [facility] [address] [id number] [address] [place] [address], [place] [address] Nov, [facility] [address] [id number] [address] [place] [address], [place] [address] 29 Oct, 2011 [facility] [address] [id number] [address] [place] [address], [place] [address] 28 Oct, 2011 [facility] [address] [id number] [address] [place] [address], [place] [address] 24 Oct, 2011 [facility] [address] [id number] [address] [place] [address], [place] [address] Oct, [facility] [address] [id number] [address] [place] [address], [place] [address] 08 Oct, 2011 [facility] [address] [id number] [address] [place] [address], [place] [address] Sep, [facility] [address] [id number] [address] [place] [address], [place] [address] 30 Sep, 2011 [facility] [address] [id number] [address] [place] [address], [place] [address] Sep, [facility] [address] [id number] [address] [place] [address], [place] [address] Sep, [facility] [address] [id number] [address] [place] [address], [place] [address] Sep, [facility] [address] [id number] [address] [place] [address], [place] [address] Sep, [facility] [address] [id number] [address] [place] [address], [place] [address] Aug, [facility] [address] [id number] [address] [place] [address], [place] [address] Aug, [facility] [address] [id number] [address] [place] [address], [place] [address] Aug, [facility] [address] [id number] [address] [place] [address], [place] [address] Jul, [facility] [address] [id number] [address] [place] [address], [place] [address] Jul, [facility] [address] [id number] [address] [place] [address], [place] [address] Jul, [facility] [address] [id number] [address] [place] [address], [place] [address] Jul, [facility] [address] [id number] [address] [place] [address], [place] [address] Jun, [facility] [address] [id number] [address] [place] [address], [place] [address] Jun, [facility] [address] [id number] [address] [place] [address], [place] [address] Jun, [facility] [address] [id number] [address] [place] [address], [place] [address] Jun, [facility] [address] [id number] [address] [place] [address], [place] [address] Jun, [facility] [address] [id number] [address] [place] [address], [place] [address] Jun, [facility] [address] [id number] [address] [place] [address], [place] [address] 11 Mar, 2011 [facility] [address] [id number] [address] [place] [address], [place] [address] 18 Dec, 2010 [facility] [address] [id number] [address] [place] [address], [place] [address] 11 Dec, 2010 [facility] [address] [id number] [address] [place] [address], [place] [address] 18 Nov, 2010 [facility] [address] [id number] [address] [place] [address], [place] [address] 16 Nov, 2010 [facility] [address] [id number] [address] [place] [address], [place] [address] 10 Sep, 2010 [facility] [address] [id number] [address] [place] [address], [place] [address] 31 Aug, 2010 [facility] [address] [id number] [address] [place] [address], [place] [address] 29 Aug, 2010 [facility] [address] [id number] [address] [place] [address], [place] [address] 29 Aug, 2010 [facility] [address] [id number] [address] [place] [address], [place] [address] 29 Aug, 2010 [facility] [address] [id number] [address] [place] [address], [place] [address] 27 Aug, 2010 [facility] [address] [id number] [address] [place] [address], [place] [address] 14 Aug, 2010 [facility] [address] [id number] [address] [place] [address], [place] [address] 08 Aug, 2010 [facility] [address] [id number] [address] [place] [address], [place] [address] 08 Aug, 2010 [facility] [address] [id number] [address] [place] [address], [place] [address] 07 Aug, 2010 [facility] [address] [id number] [address] [place] [address], [place] [address] 06 Aug, 2010 [facility] [address] [id number] [address] [place] [address], [place] [address] Aug, [facility] [address] [id number] [address] [place] [address], [place] [address] Aug, [facility] [address] [id number] [address] [place] [address], [place] [address] Jul, [facility] [address] [id number] [address] [place] [address], [place] [address] Jul, [facility] [address] [id number] [address] [place] [address], [place] [address] Jul, [facility] [address] [id number] [address] [place] [address], [place] [address] Jul, [facility] [address] [id number] [address] [place] [address], [place] [address] Jul, [facility] [address] [id number] [address] [place] [address], [place] [address] Jul, [facility] [address] [id number] [address] [place] [address], [place] [address] 24 Jun, 2010 [facility] [address] [id number] [address] [place] [address], [place] [address] Jun, [facility] [address] [id number] [address] [place] [address], [place] [address] Jun, [facility] [address] [id number] [address] [place] [address], [place] [address] Jun, [facility] [address] [id number] [address] [place] [address], [place] [address] 16 Apr, 2010 [facility] [address] [id number] [address] [place] [address], [place] [address] Mar, [facility] [address] [id number] [address] [place] [address], [place] [address] Feb, [facility] [address] [id number] [address] [place] [address], [place] [address] January, [facility] [address] [id number] [address] [place] [address], [place] [address] 15 Dec, 2009 [facility] [address] [id number] [address] [place] [address], [place] [address] Nov, [facility] [address] [id number] [address] [place] [address], [place] [address] Aug, [facility] [address] [id number] [address] [place] [address], [place] [address] Aug, [facility] [address] [id number] [address] [place] [address], [place] [address] Aug, [facility] [address] [id number] [address] [place] [address], [place] [address] Jul, [facility] [address] [id number] [address] [place] [address], [place] [address] Jul, [facility] [address] [id number] [address] [place] [address], [place] [address] Jul, [facility] [address] [id number] [address] [place] [address], [place] [address] 30 Jun, 2009 [facility] [address] [id number] [address] [place] [address], [place] [address] 29 Jun, 2009 [facility] [address] [id number] [address] [place] [id number] Jun, [facility] [address] [id number] [address] [place] [address], [place] [phone] Jun, [facility] [address] [id number] [address] [place] [phone] Jun, [facility] [address] [id number] [address] [place] [phone] Jun, [facility] [address] [id number] [address] [place] [phone] Apr, [facility] [address] [facility] [id number] [address] [place] [phone] Apr, [facility] [address] [facility] [id number] [address] [place] [phone] Feb, [facility] [address] [facility] [id number] [address] [place] [phone] January, [facility] [address] [facility] [id number] [address] [place] [phone] Dec, IMMUNIZATIONS No Known Immunizations SOCIAL HISTORY Never Assessed REASON FOR VISIT PLAN OF CARE VITAL SIGNS Height 67 in 2014-12-01 Weight 308.38 lbs 2014-12-01 Temperature 98.5 degrees Fahrenheit 2014-12-01 Heart Rate 64 bpm 2014-12-01 Respiratory Rate 28 2014-12-01 Blood pressure systolic 130 mmHg 2014-12-01 Blood pressure diastolic 80 mmHg 2014-12-01 MEDICATIONS Unknown Medications RESULTS No Results PROCEDURES [...] History inability to urinate 09/16/15 Hospitalization History [facility] health ea rly 1999' Hospitalization History hyperkalemia 10/2017 Hospitalization History fluid in lung
[2020-03-01 17:26] LABS: BUN/CREATININE RATIO 11
--- OUTSIDE RECORDS SUMMARY | 2020-03-01 17:26 | XMS REPORT ---
Author Author Michele WASHBURN Organization [facility] Address [address] [place] [address] Care Team Providers Care Hotel Service Supervisor Name Role Phone NOEMI WASHBURN Unavailable PROBLEMS Type Condition ICD9-CM Code [id number] Code Onset Dates Condition S tatus SNOMED Code Problem Cough R05 Active 81355235 Problem Benign prostatic hyperplasia with lower urinary tract symptoms, unspecified morphology N40.1 Active 51885 6007 Problem Eustachian tube dysfunction, unspecified laterality H69.80 Active 09353105 Problem Chronic pain G89.29 Active 1382224 1 Problem DM neuro manif type II E11.49 Active 31763549 Problem Diabetes E11.9 Active 29959203 Problem Leukocytosis D72.829 Active 6542787 06 Problem Falling R29.6 Active 339015934 Problem Pressure ulcer of other site, stage 3 L89.893 Active 969211711 Problem 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 Active 435883155 Problem Eye exam abnormal R93.8 Active 16 1812127 Problem Dysuria R30.0 Active 29372010 Problem Hypokalemia E87.6 Active 34637661 Problem Morbid obesity E66.01 Active 46437 6002 Problem Anxiety F41.9 Active 94284120 Problem Diabetic polyneuropathy associated with type 2 d iabetes mellitus E11.42 Active 96608438 Problem Essential hypertension I10 Active 40531796 Problem Bilateral primary osteoarthritis of knee M17.0 Active 379701619 Problem Polyneuropathy associated with underlying disease G63 Active 164519534 Problem Anemia of chronic illness D63.8 Acti ve 716533395 Problem Lymphocytosis D72.820 Active 907782 09 Problem Retinal edema H35.81 Active 357957 6 Problem Chronic lymphocytic leukemia C91.10 A ctive 45241101 Problem Bipolar disorder, in partial remission, most rec ent episode depressed F31.75 Active 53982022 Problem Pure hypercholesterolemia E78.00 Acti ve 776886093 Problem Primary osteoarthritis of right knee M17.11 Active 526895313777298 Problem Bipolar disorder F31.9 Active 137 75341 Problem Bipolar I disorder, most recent episode (or curr ent) mixed, moderate F31.62 Active 96091254 Problem Chronic diastolic (congestive) heart failure I50.3 2 Active 377754423 Problem Reactive airway disease J45.909 Active 504933034862 Problem Insomnia, unspecified type G47.00 Act sharon 467597103 Problem Other chronic pain G89.29 Active 8 0098780 Problem Other iron deficiency anemia D50.8 A ctive 66077100 Problem Mild cognitive impairment G31.84 Acti ve 978544210 Problem Skin cancer C44.90 Active 46786657 7 ALLERGIES No Information ENCOUNTERS Encounter Location Date Diagnosis [place] [address] [address] [facility] [id number] [address] [place] [address] Mar, [place] [address] [address] [place] [id number] [address] [place] [address] Mar, [place] [address] [address] [facility] [id number] [address] [place] [address] Feb, Bipolar disorder F31.9 [place] [address] [address] [facility] [id number] [address] [place] [address] Feb, Cellulitis of right upper ex tremity L03.113 and Skin abrasion T14.8XXA [place] [address] [address] [facility] [id number] [address] [place] [address] Feb, Bipolar disorder, in partial remission, most recent episode depressed F31.75 and Mild cognitive impairment G31.84 [place] [address] [facility] [id number] [address] [place] [address] Feb, Chronic pain G89.29 [place] [address] [address] [facility] [id number] [address] [place] [address] Feb, Bipolar disorder, in partial remission, most recent episode depressed F31.75 and Mild cognitive impairment G31.84 [place] [address] [address] [facility] [id number] [address] [place] [address] January, Bipolar disorder, in partial remission, most recent episode depressed F31.75 and Mild cognitive impairment G31.84 [facility] [address] [id number] [address] [place] [address] January, Chronic pain G89.29 and Bipo lar disorder F31.9 [facility] [address] [id number] [address] [place] [address] January, Bipolar disorder, in partial remission, most recent episode depressed F31.75 and Mild cognitive impairment G31.84 [facility] [address] [id number] [address] [place] [address] Dec, [facility] [address] [id number] [address] [place] [address] Dec, Chronic pain G89.29 and Bipo lar disorder F31.9 [facility] [address] [id number] [address] [place] [address] Dec, Edema of both lower extremit ies R60.0 [facility] [address] [id number] [address] [place] [address] Dec, Bipolar disorder F31.9 [facility] [address] [id number] [address] [place] [id number] Dec, Bipolar disorder, in partial remission, most recent episode depressed F31.75 and Mild cognitive impairment G31.84 [facility] [address] [id number] [address] [place] [address] Nov, [facility] [address] [id number] [address] [place] [address] Nov, Chronic pain G89.29 [facility] [address] [id number] [address] [place] [address] Nov, Bipolar disorder, in partial remission, most recent episode depressed F31.75 and Mild cognitive impairment G31.84 [facility] [address] [id number] [address] [place] [address] Nov, Bipolar disorder F31.9 [place] [address] [address] [place] [id number] [address] [place] [address] 04 Nov, 2018 Encounter for Medicare hilary l wellness exam Z00.00 ; Polyneuropathy associated [...] unspecified morphology N40.1 and Essential hypertension I10 [address] [address] 21 Oct, 2018 Chronic pain G89.[address] [address] 18 Oct, 2018 Diabetes E11.9 [place] [address] [address] [place] [id number] [address] [place] [address] Oct, Bipolar I disorder, most rec ent episode (or current) mixed, moderate F31.62 and Mild cognitive impairment G31.84 [place] [id number] [address] [place] [address] Oct, Bipolar I disorder, most rec ent episode (or current) mixed, moderate F31.62 and Mild cognitive impairment G31.84 [place] [address] [address] [place] [id number] [address] [place] [address] Sep, Bipolar I disorder, most rec ent episode (or current) mixed, moderate F31.62 and Mild cognitive impairment G31.84 [place] [id number] [address] [place] [address] Sep, [place] [id number] [address] [place] [address] Sep, Diabetes E11.9 ; Hypoxia R09 .02 ; Hyperglycemia R73.9 ; Therapeutic drug monitoring Z51.81 ; BMI 50.0-59.9, adult Z68.43 and Skin cancer C44.90 [place] [address] [address] [facility] [id number] [address] [place] [address] Sep, Chronic pain G89.29 [facility] [address] [facility] [id number] [address] [place] [address] Sep, Bipolar I disorder, most rec ent episode (or current) mixed, moderate F31.62 [facility] [address] [facility] [id number] [address] [place] [address] Sep, [place] [address] [address] [facility] [id number] [address] [place] [address] Sep, [facility] [address] [facility] [id number] [address] [place] [address] Aug, Chronic pain G89.29 [place] [address] [address] [facility] [id number] [address] [place] [address] Aug, Bipolar I disorder, most rec ent episode (or current) mixed, moderate F31.62 [place] [address] [address] [facility] [id number] [address] [place] [address] Aug, Bipolar I disorder, most rec ent episode (or current) mixed, moderate F31.62 and Mild cognitive impairment G31.84 [place] [address] [address] [facility] [id number] [address] [place] [address] Jul, [place] [address] [address] [facility] [id number] [address] [place] [address] Jul, Chronic pain G89.29 [place] [address] [address] [facility] [id number] [address] [place] [address] Jul, Bipolar I disorder, most rec ent episode (or current) mixed, moderate F31.62 and Mild cognitive impairment G31.84 [place] [address] [facility] [id number] [address] [place] [address] Jul, Bipolar I disorder, most rec ent episode (or current) mixed, moderate F31.62 and MCI (mild cognitive impairment) G31.84 [facility] [address] [id number] [address] [place] [id number] Jul, [facility] [address] [id number] [address] [place] [id number] Jul, [facility] [address] [facility] [id number] [address] [place] [address] Jul, Bipolar I disorder, most rec ent episode (or current) mixed, moderate F31.62 [facility] [address] [id number] [address] [place] [address] Jul, Chronic pain G89.29 [facility] [address] [facility] [id number] [address] [place] [address] Jun, Bipolar I disorder, most rec ent episode (or current) mixed, moderate F31.62 [place] [address] [address] [facility] [id number] [address] [place] [address] Jun, Pre-procedure lab exam Z01.8 12 [place] [address] [address] [facility] [id number] [address] [place] [address] Jun, [facility] [address] [id number] [place] [id number] Jun, [facility] [address] [facility] [id number] [address] [place] [address] Jun, [facility] [address] [facility] [id number] [address] [place] [address] Jun, Forgetfulness R68.89 ; Pre-s yncope R55 ; Localized edema R60.0 ; Other iron deficiency anemia D50.8 and BMI 50.0-59.9, adult Z68.43 [facility] [address] [id number] [address] [place] [address] Jun, Chronic pain G89.29 [facility] [address] [facility] [id number] [address] [place] [address] Jun, Chronic pain G89.29 [facility] [address] [facility] [id number] [address] [place] [address] Jun, Bipolar I disorder, most rec ent episode (or current) mixed, moderate F31.62 [facility] [address] [facility] [id number] [address] [place] [address] May, Chronic pain G89.29 [facility] [address] [facility] [id number] [address] [place] [address] Apr, [facility] [address] [facility] [id number] [address] [place] [address] Apr, Chronic pain G89.29 [place] [address] [address] [facility] [id number] [address] [place] [address] Apr, Primary osteoarthritis of ri ght knee M17.11 [place] [address] [address] [facility] [id number] [address] [place] [address] Mar, [place] [address] [address] [facility] [id number] [address] [place] [address] Mar, BMI 50.0-59.9, adult Z68.43 and Bipolar disorder, in partial remission, most recent episode depressed F31.75 [place] [address] [address] [place] [id number] [address] [place] [address] Mar, Diabetes E11.9 ; Pure hyperc holesterolemia E78.00 ; Essential hypertension I10 ; Nausea with vomiting, unspecified R11.2 and Headache, unspecified headache type R51 [place] [address] [facility] [id number] [address] [place] [address] Mar, Bipolar I disorder, most rec ent episode (or current) mixed, moderate F31.62 [place] [address] [address] [facility] [id number] [address] [place] [address] Mar, Bipolar I disorder, most rec ent episode (or current) mixed, moderate F31.62 [place] [address] [address] [place] [id number] [address] [place] [address] 13 Mar, 2018 Chronic pain G89.29 [facility] [address] [id number] [address] [place] [address] Mar, Bipolar I disorder, most rec ent episode (or current) mixed, moderate F31.62 [facility] [address] [facility] [id number] [address] [place] [address] Feb, Bipolar I disorder, most rec ent episode (or current) mixed, moderate F31.62 [facility] [address] [facility] [id number] [address] [place] [address] 14 Feb, 2018 Chronic pain G89.29 [facility] [address] [facility] [id number] [address] [place] [id number] Feb, Decubitus ulcer of right josselin t, stage 3 L89.893 and BMI 50.0-59.9, adult Z68.43 [facility] [address] [place] [id number] [address] [place] [address] Feb, Bipolar I disorder, most rec ent episode (or current) mixed, moderate F31.62 [facility] [address] [facility] [id number] [address] [place] [id number] Feb, [facility] [address] [facility] [id number] [address] [place] [address] January, [facility] [address] [facility] [id number] [address] [place] [address] January, Chronic pain G89.29 [facility] [address] [facility] [id number] [address] [place] [address] January, Bipolar I disorder, most rec ent episode (or current) mixed, moderate F31.62 [facility] [address] [facility] [id number] [address] [place] [address] January, Bipolar I disorder, most rec ent episode (or current) mixed, moderate F31.62 [facility] [address] [facility] [id number] [address] [place] [address] Dec, Bipolar I disorder, most rec ent episode (or current) mixed, moderate F31.62 and BMI 50.0-59.9, adult Z68.43 [place] [address] [address] [place] [id number] [address] [place] [address] Dec, Bipolar I disorder, most rec ent episode (or current) mixed, moderate F31.62 [place] [address] [place] [id number] [place] [address] Dec, Chronic pain G89.29 [place] [address] [address] [place] [id number] [place] [address] Dec, DM neuro manif type II E11.4 9 ; Right flank pain R10.9 ; manager terminal 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 Z79.891 ; Encounter for medication monitoring Z51.81 and BMI 50.0-59.9, adult Z68.43 [place] [address] [address] Dec, Bipolar I disorder, most rec ent episode (or current) mixed, moderate F31.62 [place] [address] [address] Nov, Bipolar I disorder, most rec ent episode (or current) mixed, moderate F31.62 [place] [address] [place] [id number] [address] [place] [address] Nov, Chronic pain G89.29 [place] [address] [place] [id number] [address] [place] [address] Nov, Bipolar I disorder, most rec ent episode (or current) mixed, moderate F31.62 [place] [address] [place] [id number] [address] [place] [address] Nov, Hypokalemia E87.6 [place] [address] [address] [place] [id number] [address] [place] [address] Nov, Bipolar I disorder, most rec ent episode (or current) mixed, moderate F31.62 [facility] [address] [facility] [id number] [address] [place] [address] Oct, Chronic pain G89.29 [facility] [address] [place] [id number] [address] [place] [address] Oct, BMI 50.0-59.9, adult Z68.43 and Bipolar I disorder, most recent episode (or current) mixed, moderate F31.62 [facility] [address] [place] [id number] [place] [address] Oct, Bipolar I disorder, most rec ent episode (or current) mixed, moderate F31.62 [place] [address] [place] [id number] [place] [address] Oct, [place] [address] [address] Oct, Hypokalemia E87.6 [place] [address] [place] [id number] [place] [address] Oct, DM neuro manif type II E11.4 9 [place] [address] [place] [id number] [place] [address] Oct, Bipolar I disorder, most rec ent episode (or current) mixed, moderate F31.62 [place] [address] [place] [id number] [address] [place] [address] Oct, Bipolar I disorder, most rec ent episode (or current) mixed, moderate F31.62 [place] [address] [place] [id number] [address] [place] [address] 14 Oct, 2017 Hyperkalemia E87.5 ; Falling R29.6 ; BMI 50.0-59.9, adult Z68.43 and Acute left ankle pain M25.572 [place] [address] [address] [place] [id number] [address] [place] [address] Oct, DM neuro manif type II E11.4 9 [place] [address] [address] [place] [id number] [address] [place] [address] Oct, [place] [address] [address] Sep, Chronic pain G89.29 [facility] [address] [place] [id number] [place] [address] Sep, [place] [address] [address] Sep, Bilateral primary osteoarthr itis of knee M17.[address] [address] Sep, Generalized edema R60.1 [place] [address] [address] [place] [id number] [place] [address] Sep, Bipolar I disorder, most rec ent episode (or current) mixed, moderate F31.62 [place] [address] [address] Sep, Hypoxia R09.02 ; Other hyper volemia E87.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 ; Anemia of chronic illness D63.8 and BMI 50.0- 59.9, adult Z68.43 [place] [address] [address] Sep, [place] [address] [address] Sep, Bipolar I disorder, most rec ent episode (or current) mixed, moderate F31.62 [place] [address] [place] [id number] [place] [address] Aug, Chronic pain G89.29 [place] [address] [place] [id number] [address] [place] [address] Aug, Generalized edema R60.1 [facility] [address] [facility] [id number] [address] [place] [address] 18 Aug, 2017 [place] [address] [facility] [id number] [address] [place] [address] 18 Aug, 2017 [facility] [address] [facility] [id number] [address] [place] [address] 14 Aug, 2017 Bipolar I disorder, most rec ent episode (or current) mixed, moderate F31.62 [place] [address] [facility] [id number] [address] [place] [address] Aug, Bipolar I disorder, most rec ent episode (or current) mixed, moderate F31.62 [place] [address] [facility] [id number] [address] [place] [address] 04 Aug, 2017 Chronic pain G89.29 [place] [address] [place] [id number] [address] [place] [address] Jul, Bipolar I disorder, most rec ent episode (or current) mixed, moderate F31.62 [place] [address] [place] [id number] [address] [place] [address] Jul, Bipolar I disorder, most rec ent episode (or current) mixed, moderate F31.62 and BMI 60.0-69.9, adult Z68.44 [place] [address] [place] [id number] [address] [place] [address] 16 Jul, 2017 Bipolar I disorder, most rec ent episode (or current) mixed, moderate F31.62 [place] [address] [facility] [id number] [address] [place] [address] 06 Jul, 2017 Chronic pain G89.29 [place] [address] [facility] [id number] [address] [place] [address] 02 Jul, 2017 Bipolar I disorder, most rec ent episode (or current) mixed, moderate F31.62 [place] [address] [facility] [id number] [address] [place] [address] Jun, Polyneuropathy associated wi th underlying disease G63 and Diabetes E11.9 [facility] [address] [id number] [address] [place] [address] 16 Jun, 2017 Bipolar I disorder, most rec ent episode (or current) mixed, moderate F31.62 [facility] [address] [id number] [address] [place] [address] 09 Jun, 2017 Chronic pain G89.29 [facility] [address] [id number] [address] [place] [address] May, Bipolar I disorder, most rec ent episode (or current) mixed, moderate F31.62 [place] [address] [id number] [address] [place] [address] May, Bipolar I disorder, most rec ent episode (or current) mixed, moderate F31.62 [facility] [address] [facility] [id number] [address] [place] [address] May, Diabetic polyneuropathy asso ciated with type 2 diabetes mellitus E11.42 [facility] [address] [id number] [address] [place] [address] 18 May, 2017 Bipolar I disorder, most rec ent episode (or current) mixed, moderate F31.62 [facility] [address] [facility] [id number] [address] [place] [id number] 13 May, 2017 Bipolar I disorder, most rec ent episode (or current) mixed, moderate F31.62 [place] [address] [id number] [address] [place] [id number] May, Chronic pain G89.29 [facility] [address] [id number] [address] [place] [id number] Apr, Bipolar I disorder, most rec ent episode (or current) mixed, moderate F31.62 [facility] [address] [id number] [address] [place] [id number] Apr, [facility] [address] [id number] [address] [place] [id number] Apr, Chronic pain G89.29 and DM n euro manif type II E11.49 [facility] [address] [id number] [address] [place] [id number] Apr, [facility] [address] [facility] [id number] [address] [place] [id number] Apr, Bipolar I disorder, most rec ent episode (or current) mixed, moderate F31.62 [facility] [address] [id number] [address] [place] [id number] Apr, Chronic pain G89.29 [facility] [address] [id number] [address] [place] [id number] Apr, Iliotibial band syndrome, le ft M76.32 [facility] [address] [facility] [id number] [address] [place] [phone] Apr, Bipolar I disorder, most rec ent episode (or current) mixed, moderate F31.62 [facility] [address] [facility] [facility] [id number] [address] [place] [address] Mar, Bipolar I disorder, most rec ent episode (or current) mixed, moderate F31.62 [facility] [address] [id number] [address] [place] [address] Mar, Bipolar I disorder, most rec ent episode (or current) mixed, moderate F31.62 [facility] [address] [facility] [id number] [address] [place] [address] Mar, [facility] [address] [facility] [id number] [address] [place] [address] Mar, Bipolar I disorder, most rec ent episode (or current) mixed, moderate F31.62 [facility] [address] [facility] [id number] [address] [place] [address] Mar, Chronic pain G89.29 [facility] [address] [facility] [id number] [address] [place] [address] Mar, Bipolar I disorder, most rec ent episode (or current) mixed, moderate F31.62 [facility] [address] [id number] [address] [place] [id number] Mar, Bipolar I disorder, most rec ent episode (or current) mixed, moderate F31.62 [facility] [address] [facility] [id number] [address] [place] [address] Mar, Acute pain of left knee M25. 562 ; Left hip pain M25.552 ; Generalized edema R60.1 and Tongue swelling R22.0 [facility] [address] [id number] [address] [place] [phone] Mar, [facility] [address] [facility] [id number] [address] [place] [address] Feb, Chronic pain G89.29 [facility] [address] [facility] [id number] [address] [place] [address] Feb, Diabetes E11.9 [facility] [address] [facility] [id number] [address] [place] [address] January, Chronic pain G89.29 [facility] [address] [id number] [address] [place] [phone] January, [facility] [address] [facility] [id number] [address] [place] [id number] January, Bipolar I disorder, most rec ent episode (or current) mixed, moderate F31.62 [facility] [address] [facility] [id number] [address] [place] [address] Dec, Bipolar I disorder, most rec ent episode (or current) mixed, moderate F31.62 [facility] [address] [id number] [address] [place] [address] Dec, Chronic pain G89.29 [facility] [address] [facility] [id number] [address] [place] [id number] Dec, Bipolar I disorder, most rec ent episode (or current) mixed, moderate F31.62 [facility] [address] [facility] [id number] [address] [place] [address] Dec, Diabetes E11.9 ; Essential h ypertension I10 ; Chronic pain G89.29 and Morbid obesity E66.01 [facility] [address] [facility] [id number] [address] [place] [id number] Dec, [facility] [address] [facility] [id number] [address] [place] [phone] Dec, Bipolar I disorder, most rec ent episode (or current) mixed, moderate F31.62 [facility] [address] [facility] [id number] [address] [place] [address] Dec, Bipolar I disorder, most rec ent episode (or current) mixed, moderate F31.62 [facility] [address] [place] [id number] [address] [place] [id number] Nov, Chronic pain G89.29 [facility] [address] [facility] [id number] [address] [place] [id number] Nov, Bipolar I disorder, most rec ent episode (or current) mixed, moderate F31.62 [facility] [address] [facility] [id number] [address] [place] [phone] Nov, [facility] [address] [place] [id number] [address] [place] [address] Nov, Bipolar I disorder, most rec ent episode (or current) mixed, moderate F31.62 [facility] [address] [facility] [id number] [address] [place] [phone] Nov, Bipolar I disorder, most rec ent episode (or current) mixed, moderate F31.62 [facility] [address] [facility] [id number] [address] [place] [address] Nov, [facility] [address] [facility] [id number] [address] [place] [phone] Nov, [facility] [address] [place] [id number] [address] [place] [address] Nov, [facility] [address] [facility] [id number] [address] [place] [address] Oct, Chronic pain G89.29 [facility] [address] [facility] [id number] [address] [place] [phone] Oct, Bipolar I disorder, most rec ent episode (or current) mixed, moderate F31.62 [facility] [address] [facility] [id number] [address] [place] [address] Oct, [facility] [address] [facility] [id number] [address] [place] [address] Oct, Chronic pain G89.29 ; Diabet es E11.9 ; Anxiety F41.9 and 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 [facility] [address] [facility] [id number] [address] [place] [address] Oct, [facility] [address] [facility] [id number] [address] [place] [phone] Oct, Diabetes E11.9 [facility] [address] [facility] [id number] [address] [place] [id number] Oct, Bipolar I disorder, most rec ent episode (or current) mixed, moderate F31.62 [facility] [address] [facility] [id number] [address] [place] [address] Sep, Chronic pain G89.29 [facility] [address] [facility] [id number] [address] [place] [address] Sep, Chronic pain G89.29 [facility] [address] [facility] [id number] [address] [place] [address] Aug, Chronic pain G89.29 [facility] [address] [facility] [id number] [address] [place] [id number] Jul, [facility] [address] [facility] [id number] [address] [place] [address] Jul, Diabetes E11.9 [facility] [address] [facility] [id number] [address] [place] [address] Jul, Chronic pain G89.29 [place] [address] [facility] [id number] [address] [place] [id number] Jul, Bipolar I disorder, most rec ent episode (or current) mixed, moderate F31.62 [place] [address] [facility] [id number] [address] [place] [address] Jun, Bipolar I disorder, most rec ent episode (or current) mixed, moderate F31.62 [place] [address] [facility] [id number] [address] [place] [address] Jun, [place] [address] [facility] [id number] [address] [place] [address] Jun, Bipolar I disorder, most rec ent episode (or current) mixed, moderate F31.62 [place] [address] [facility] [id number] [address] [place] [address] May, Insomnia, unspecified type G 47.00 [place] [address] [facility] [id number] [address] [place] [address] May, Bipolar I disorder, most rec ent episode (or current) mixed, moderate F31.62 [place] [address] [facility] [id number] [address] [place] [address] 14 May, 2016 [place] [address] [facility] [id number] [address] [place] [phone] 08 May, 2016 Bipolar I disorder, most rec ent episode (or current) mixed, moderate F31.62 [place] [address] [facility] [id number] [address] [place] [address] 06 May, 2016 Diabetes E11.9 and Essential hypertension I10 [place] [address] [facility] [id number] [address] [place] [address] Apr, Chronic pain G89.29 [place] [address] [facility] [id number] [address] [place] [address] Apr, Bipolar I disorder, most rec ent episode (or current) mixed, moderate F31.62 [facility] [address] [id number] [address] [place] [address] Apr, [facility] [address] [id number] [address] [place] [address] Apr, [facility] [address] [facility] [id number] [address] [place] [address] Mar, Chronic pain G89.29 ; Headac he, unspecified headache type R51 ; Neuropathy G62.9 ; Pain of right hip joint M25.551 and Essential hypertension I10 [place] [address] [id number] [address] [place] [address] Mar, Chronic pain G89.29 [place] [address] [facility] [id number] [address] [place] [address] Mar, Bipolar I disorder, most rec ent episode (or current) mixed, moderate F31.62 [facility] [address] [id number] [address] [place] [address] Feb, Bipolar I disorder, most rec ent episode (or current) mixed, moderate F31.62 and Insomnia, unspecified type G47.00 [place] [address] [facility] [id number] [address] [place] [address] Feb, Chronic pain G89.29 [facility] [address] [id number] [address] [place] [address] Feb, Bipolar I disorder, most rec ent episode (or current) mixed, moderate F31.62 [place] [address] [id number] [address] [place] [phone] January, Bipolar I disorder, most rec ent episode (or current) mixed, moderate F31.62 [place] [address] [facility] [id number] [address] [place] [address] January, Chronic pain G89.29 [place] [address] [address] January, Chronic pain G89.29 and Esse ntial hypertension I10 [facility] [address] [address] January, Bipolar I disorder, most rec ent episode (or current) mixed, moderate F31.62 [facility] [address] [address] Dec, [facility] [address] [address] Dec, [facility] [address] [address] Dec, [facility] [address] [address] Dec, [facility] [address] [address] Nov, Reactive airway disease J45. 909 [facility] [address] [address] Nov, [facility] [address] [address] Nov, [facility] [address] [address] Nov, [facility] [address] [address] Nov, [facility] [address] [address] Nov, Onychomycosis B35.1 ; Hammer toe M20.40 ; [place] or callus L84 and DM neuro manif type II E11.49 [facility] [address] [place] [id number] [address] [place] [address] 15 Nov, 2015 Chronic pain G89.29 ; Leukoc ytosis D72.829 and Diabetes E11.9 [facility] [address] [address] Nov, [facility] [address] [address] Oct, Bronchitis J40 [facility] [address] [address] Oct, [facility] [address] [address] Oct, [place] [address] [address] Oct, Mastoiditis, unspecified lat erality H70.90 and Type 2 diabetes mellitus with complication E11.8 [place] [address] [address] Sep, [place] [address] [address] Sep, Dysuria R30.0 ; Cough R05 ; Benign prostatic hyperplasia with lower urinary tract symptoms, unspecified morphology N40.1 ; Hypokalemia E87.6 and Eustachian tube dysfunction, unspecified laterality H69.80 [place] [address] [address] Sep, Moderate mixed bipolar I dis order F31.62 [place] [address] [address] Sep, Hypokalemia E87.6 [place] [address] [address] Sep, [place] [address] [address] Sep, Upper respiratory tract infe ction, unspecified type J06.9 [place] [address] [address] Aug, [place] [address] [id number] [address] [place] [address] Aug, Dysuria R30.0 [facility] [address] [id number] [address] [place] [address] Aug, [facility] [address] [id number] [address] [place] [address] Jul, [facility] [address] [id number] [address] [place] [address] Jul, [facility] [address] [id number] [address] [place] [address] Jul, [facility] [address] [id number] [address] [place] [address] Jul, [facility] [address] [id number] [address] [place] [address] Jun, [facility] [address] [id number] [address] [place] [phone] Jun, [facility] [address] [id number] [address] [place] [address] Jun, [facility] [address] [id number] [address] [place] [address] May, [facility] [address] [id number] [address] [place] [address] May, Bipolar I disorder, most rec ent episode (or current) mixed, moderate 296.62 [facility] [address] [id number] [address] [place] [address] 16 May, 2015 [facility] [address] [id number] [address] [place] [phone] May, Bipolar I disorder, most rec ent episode (or current) mixed, moderate 296.62 and Major depressive disorder, recurrent episode, severe, specified as with psychotic behavior 296.34 [facility] [address] [id number] [address] [place] [address] May, Bipolar I disorder, most rec ent episode (or current) mixed, moderate 296.62 [facility] [address] [id number] [address] [place] [address] May, [facility] [address] [facility] [id number] [address] [place] [address] Apr, [facility] [address] [facility] [id number] [address] [place] [address] Apr, [facility] [address] [facility] [id number] [address] [place] [address] Apr, Unspecified disorder of kidn ey and ureter 593.9 and Diabetes mellitus type 2, uncontrolled 250.02 [facility] [address] [facility] [id number] [address] [place] [address] Apr, [facility] [address] [facility] [id number] [address] [place] [address] Apr, [facility] [address] [place] [id number] [address] [place] [address] Apr, [facility] [address] [id number] [address] [place] [address] Apr, [facility] [address] [facility] [id number] [address] [place] [address] Apr, Diabetes mellitus type II, u ncontrolled 250.02 [facility] [address] [facility] [id number] [address] [place] [address] Apr, [facility] [address] [id number] [address] [place] [address] Mar, [facility] [address] [facility] [id number] [address] [place] [address] Mar, [facility] [address] [facility] [id number] [address] [place] [address] Mar, [facility] [address] [facility] [id number] [address] [place] [address] Mar, Major depressive disorder, r ecurrent episode, severe, specified as with psychotic behavior 296.34 and Bipolar I disorder, most recent episode (or current) mixed, moderate 296.62 [facility] [address] [address] Mar, Diabetes 250.00 ; Anuria 788 .5 ; Nausea and vomiting 787.01 and Diarrhea 787.91 [facility] [address] [address] Mar, Diabetes 250.00 [facility] [address] [address] Mar, [facility] [address] [address] Mar, Diabetes 250.00 [facility] [address] [address] Mar, [facility] [address] [address] Mar, [facility] [address] [address] Mar, [facility] [address] [address] Mar, [facility] [address] [address] Mar, Bipolar I disorder, most rec ent episode (or current) mixed, moderate 296.62 and Major depressive disorder, recurrent episode, severe, specified as with psychotic behavior 296.34 [facility] [address] [address] Mar, Magnesium deficiency 275.2 ; Hypokalemia 276.8 ; Nausea & vomiting 787.01 and Diabetes mellitus type 2, uncontrolled 250.02 [facility] [address] [place] [id number] [place] [address] Feb, [facility] [address] [address] Feb, Bipolar I disorder, most rec ent episode (or current) mixed, moderate 296.62 [place] [address] [address] Feb, Nausea and vomiting 787.01 ; Left elbow pain 719.42 ; Anuria 788.5 and Diabetes 250.00 [place] [address] [address] Feb, [place] [address] [address] Feb, Hypopotassemia 276.8 and Hyp okalemia 276.8 [place] [address] [address] Feb, Hypopotassemia 276.8 and Hyp okalemia 276.8 [place] [address] [address] Feb, Seborrheic keratoses 702.19 [place] [address] [address] Feb, Hypopotassemia 276.8 and Low magnesium levels 275.2 [place] [address] [address] January, [place] [address] [address] January, [facility] [address] [address] January, [place] [address] [address] January, Scalp lesion 709.9 [place] [address] [address] January, [facility] [address] [address] 30 Dec, 2014 Tear of medial cartilage or meniscus of knee, current 836.0 and 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 [address] [id number] [address] [place] [address] 14 Dec, 2014 [facility] [place] [address] [id number] [address] [place] [address] Dec, [facility] [place] [address] [id number] [address] [place] [address] Nov, [facility] [place] [address] [id number] [address] [place] [address] Nov, [facility] [place] [address] [id number] [address] [place] [address] Nov, [facility] [place] [address] [id number] [address] [place] [id number] Nov, [facility] [address] [id number] [address] [place] [id number] Nov, [facility] [place] [address] [id number] [address] [place] [phone] Nov, [facility] [place] [address] [id number] [address] [place] [phone] Nov, [facility] [place] [address] [id number] [address] [place] [phone] Nov, [facility] [place] [address] [id number] [address] [place] [id number] Nov, [facility] [address] [id number] [address] [place] [address], [place] [id number] Nov, [facility] [address] [id number] [address] [place] [address], [place] [id number] Nov, [facility] [address] [id number] [address] [place] [address], [place] [id number] Nov, [facility] [address] [id number] [address] [place] [address], [place] [id number] Oct, 2014 [facility] [address] [id number] [address] [place] [address], [place] [id number] Oct, 2014 [facility] [address] [id number] [address] [place] [address], [place] [address] Oct, 2014 [facility] [address] [id number] [address] [place] [address], [place] [address] Oct, 2014 [facility] [address] [id number] [address] [place] [id number] Oct, [facility] [address] [id number] [address] [place] [address], [place] [id number] Oct, [facility] [address] [id number] [address] [place] [phone] Oct, [facility] [address] [id number] [address] [place] [phone] Oct, [facility] [address] [id number] [address] [place] [phone] Oct, [facility] [address] [id number] [address] [place] [phone] Sep, [facility] [address] [id number] [address] [place] [phone] Sep, [facility] [address] [id number] [address] [place] [phone] Sep, [facility] [address] [id number] [address] [place] [phone] Sep, [facility] [address] [id number] [address] [place] [address], [place] [address] Sep, [facility] [address] [id number] [address] [place] [place] [address], [place] [address] Sep, [facility] [address] [id number] [address] [place] [address], [place] [address] Sep, [facility] [address] [id number] [address] [place] [address], [place] [address] Sep, [facility] [address] [id number] [address] [place] [address], [place] [address] Sep, [facility] [address] [id number] [address] [place] [address], [place] [address] Sep, [facility] [address] [id number] [address] [place] [address], [place] [address] Sep, [facility] [address] [id number] [address] [place] [address], [place] [address] Sep, [facility] [address] [id number] [address] [place] [address], [place] [address] Sep, [facility] [address] [id number] [address] [place] [address], [place] [address] Sep, [facility] [address] [id number] [address] [place] [address], [place] [address] Sep, [facility] [address] [id number] [address] [place] [address], [place] [address] Sep, [facility] [address] [id number] [address] [place] [address], [place] [address] Aug, [facility] [address] [id number] [address] [place] [address], [place] [address] Aug, [facility] [address] [id number] [address] [place] [address], [place] [address] Aug, [facility] [address] [id number] [facility] [place] [address] Aug, [facility] [address] [id number] [facility] [place] [address] Aug, [facility] [address] [id number] [facility] [place] [address] Aug, [facility] [address] [id number] [facility] [place] [address] Aug, [facility] [address] [id number] [facility] [place] [address] Aug, [facility] [address] [id number] [address] [place] [address], [place] [address] Aug, [facility] [address] [id number] [address] [place] [address], [place] [address] Aug, [facility] [address] [id number] [address] [place] [address], [place] [address] Aug, [facility] [place] [id number] Aug, [facility] [address] [id number] [address] [place] [address], [place] [address] Aug, [facility] [place] [address] [id number] [address] [place] [address], [place] [address] Aug, [facility] [address] [id number] [address] [place] [address], [place] [address] Aug, [facility] [address] [id number] [address] [place] [address], [place] [address] Aug, [facility] [address] [id number] [address] [place] [address], [place] [address] Aug, [facility] [address] [id number] [facility] [place] [address] Aug, [facility] [address] [id number] [address] [place] [address], [place] [address] Aug, [facility] [address] [id number] [address] [place] [address], [place] [address] Aug, [facility] [address] [id number] [address] [place] [address], [place] [address] Aug, [facility] [address] [id number] [address] [place] [address], [place] [address] Aug, [facility] [address] [id number] [address] [place] [address], [place] [address] Aug, [facility] [address] [id number] [address] [place] [address], [place] [address] Aug, [facility] [address] [id number] [address] [place] [address], [place] [address] Aug, [facility] [address] [id number] [address] [place] [address], [place] [address] Aug, [facility] [address] [id number] [address] [place] [address], [place] [address] Aug, [facility] [address] [id number] [address] [place] [address], [place] [address] Aug, [facility] [address] [id number] [address] [place] [address], [place] [address] Aug, [facility] [address] [id number] [address] [place] [address], [place] [address] Aug, [facility] [address] [id number] [address] [place] [address], [place] [address] Jul, [facility] [address] [id number] [address] [place] [address], [place] [address] Jul, [facility] [address] [id number] [address] [place] [address], [place] [address] Jul, [facility] [address] [id number] [address] [place] [address], [place] [address] Jul, [facility] [address] [id number] [address] [place] [address] Jul, [facility] [address] [id number] [address] [place] [address], [place] [address] Jul, [facility] [address] [id number] [address] [place] [id number] Jul, [facility] [address] [id number] [address] [place] [address], [place] [address] Jul, [facility] [address] [id number] [address] [place] [id number] Jul, [facility] [address] [id number] [address] [place] [address], [place] [address] Jul, [facility] [address] [id number] [address] [place] [address], [place] [address] Jun, [facility] [address] [id number] [address] [place] [id number] Jun, [facility] [address] [id number] [address] [place] [id number] Jun, [facility] [address] [id number] [address] [place] [id number] Jun, [facility] [address] [id number] [address] [place] [address] Jun, [facility] [address] [id number] [address] [place] [id number] Jun, [facility] [address] [id number] [address] [place] [id number] Jun, [facility] [address] [id number] [address] [place] [id number] Jun, [facility] [address] [id number] [address] [place] [id number] Jun, [facility] [address] [id number] [address] [place] [id number] Jun, [facility] [address] [id number] [facility] [place] [address] 29 Sep, 2013 [facility] [address] [id number] [facility] [place] [address] 29 Sep, 2013 [facility] [address] [id number] [facility] [place] [address] 26 Sep, 2013 [facility] [address] [id number] [address] [place] [address], [place] [address] 26 Sep, 2013 [facility] [address] [id number] [address] [place] [address], [place] [address] 17 Sep, 2013 [facility] [address] [id number] [address] [place] [address], [place] [address] 17 Sep, 2013 [facility] [address] [id number] [address] [place] [address], [place] [address] 15 Sep, 2013 [facility] [address] [id number] [address] [place] [address], [place] [address] 15 Sep, 2013 [facility] [address] [id number] [address] [place] [address], [place] [address] 15 Sep, 2013 [facility] [address] [id number] [address] [place] [address], [place] [address] 15 Sep, 2013 [facility] [address] [id number] [address] [place] [address], [place] [address] 10 Sep, 2013 [facility] [address] [id number] [address] [place] [address], [place] [address] 10 Sep, 2013 [facility] [address] [id number] [address] [place] [address], [place] [address] 09 Sep, 2013 [facility] [address] [id number] [address] [place] [address], [place] [address] 09 Sep, 2013 [facility] [address] [id number] [address] [place] [address], [place] [address] 04 Sep, 2013 [facility] [address] [id number] [address] [place] [address], [place] [address] May, [facility] [address] [id number] [facility] [place] [address] Apr, [facility] [address] [id number] [address] [place] [address], [place] [address] Apr, [facility] [address] [id number] [address] [place] [address], [place] [address] Apr, [facility] [address] [id number] [address] [place] [address], [place] [address] Apr, [facility] [address] [id number] [address] [place] [address], [place] [address] Apr, [facility] [address] [id number] [address] [place] [address], [place] [address] Apr, [facility] [address] [id number] [address] [place] [address], [place] [address] Apr, [facility] [address] [id number] [address] [place] [address], [place] [address] Apr, [facility] [address] [id number] [address] [place] [address], [place] [address] Apr, [facility] [address] [id number] [address] [place] [address], [place] [address] Apr, [facility] [address] [id number] [address] [place] [address], [place] [address] Apr, [facility] [address] [id number] [address] [place] [address], [place] [address] Apr, [facility] [address] [id number] [address] [place] [address], [place] [address] Apr, [facility] [address] [id number] [address] [place] [address], [place] [address] Apr, [facility] [address] [id number] [address] [place] [address], [place] [address] Apr, [facility] [address] [id number] [address] [place] [address], [place] [address] Mar, 2013 [facility] [address] [id number] [facility] [place] [address] Mar, 2013 [facility] [address] [id number] [facility] [place] [address] Mar, 2013 [facility] [address] [id number] [address] [place] [address], [place] [address] Mar, 2013 [facility] [address] [id number] [address] [place] [address], [place] [address] Mar, 2013 [facility] [address] [id number] [address] [place] [address], [place] [address] Mar, 2013 [facility] [address] [id number] [address] [place] [address], [place] [address] Mar, 2013 [facility] [address] [id number] [address] [place] [address], [place] [address] Mar, 2013 [facility] [address] [id number] [address] [place] [address], [place] [address] Mar, 2013 [facility] [address] [id number] [address] [place] [address], [place] [address] Mar, 2013 [facility] [address] [id number] [address] [place] [address], [place] [address] Mar, 2013 [facility] [address] [id number] [address] [place] [address], [place] [address] Mar, 2013 [facility] [address] [id number] [address] [place] [address], [place] [address] Mar, 2013 [facility] [address] [id number] [address] [place] [address], [place] [address] Mar, 2013 [facility] [address] [id number] [address] [place] [address], [place] [address] Mar, 2013 [facility] [address] [id number] [address] [place] [address], [place] [address] Mar2013 [facility] [address] [id number] [facility] [place] [address] Mar, [facility] [address] [id number] [facility] [place] [address] Mar, [facility] [address] [id number] [facility] [place] [address] Feb, [facility] [address] [id number] [facility] [place] [address] Feb, [facility] [address] [id number] [facility] [place] [address] Feb, [facility] [address] [id number] [address] [place] [address], [place] [address] Feb, [facility] [address] [id number] [address] [place] [address], [place] [address] Feb, [facility] [address] [id number] [address] [place] [address], [place] [address] Feb, [facility] [address] [id number] [address] [place] [address], [place] [address] Feb, [facility] [address] [id number] [address] [place] [address], [place] [address] Feb, [facility] [address] [id number] [address] [place] [address], [place] [address] Feb, [facility] [address] [id number] [address] [place] [address], [place] [address] Feb, [facility] [address] [id number] [address] [place] [address], [place] [address] Feb, [facility] [address] [id number] [address] [place] [address], [place] [address] Feb, [facility] [address] [id number] [address] [place] [address], [place] [address] Feb, [facility] [address] [id number] [address] [place] [address], [place] [address] Feb, [facility] [address] [id number] [facility] [place] [address] January, [facility] [address] [id number] [address] [place] [address], [place] [address] January, [facility] [address] [id number] [address] [place] [address], [place] [address] January, [facility] [address] [id number] [address] [place] [address], [place] [address] January, [facility] [address] [id number] [address] [place] [address], [place] [address] January, [facility] [address] [id number] [address] [place] [address], [place] [address] January, [facility] [address] [id number] [address] [place] [address], [place] [address] January, [facility] [address] [id number] [address] [place] [address], [place] [address] January, [facility] [address] [id number] [address] [place] [address], [place] [address] January, [facility] [address] [id number] [address] [place] [address], [place] [address] January, [facility] [address] [id number] [address] [place] [address], [place] [address] January, [facility] [address] [id number] [address] [place] [address], [place] [address] January, [facility] [address] [id number] [address] [place] [address], [place] [address] January, [facility] [address] [id number] [address] [place] [address], [place] [address] January, [facility] [address] [id number] [address] [place] [address], [place] [address] Dec, [facility] [address] [id number] [facility] [place] [address] Dec, [facility] [address] [id number] [facility] [place] [address] Dec, [facility] [address] [id number] [address] [place] [address], [place] [address] Dec, [facility] [address] [id number] [address] [place] [address], [place] [address] Dec, [facility] [address] [id number] [address] [place] [address], [place] [address] Dec, [facility] [address] [id number] [address] [place] [address], [place] [address] Dec, [facility] [address] [id number] [address] [place] [address], [place] [address] Dec, [facility] [address] [id number] [address] [place] [address], [place] [address] Dec, [facility] [address] [id number] [address] [place] [address], [place] [address] Dec, [facility] [address] [id number] [address] [place] [address], [place] [address] Nov, [facility] [address] [id number] [address] [place] [address], [place] [address] Nov, [facility] [address] [id number] [address] [place] [address], [place] [address] Nov, [facility] [address] [id number] [address] [place] [address], [place] [address] Nov, [facility] [address] [id number] [address] [place] [address], [place] [address] Nov, [facility] [address] [id number] [address] [place] [address], [place] [address] Nov, [facility] [address] [id number] [address] [place] [address], [place] [address] Nov, [facility] [address] [id number] [facility] [place] [address] Nov, [facility] [address] [id number] [address] [place] [address], [place] [address] Nov, [facility] [address] [id number] [facility] [place] [address] Nov, [facility] [address] [id number] [address] [place] [address], [place] [address] Oct, [facility] [address] [id number] [address] [place] [address], [place] [address] Oct, [facility] [address] [id number] [address] [place] [address], [place] [address] Oct, [facility] [address] [id number] [address] [place] [address], [place] [address] Oct, [facility] [address] [id number] [address] [place] [address], [place] [address] Oct, [facility] [address] [id number] [address] [place] [address], [place] [address] Oct, [facility] [address] [id number] [address] [place] [address], [place] [address] Oct, [facility] [address] [id number] [address] [place] [address], [place] [address] Oct, [facility] [address] [id number] [address] [place] [address], [place] [address] Oct, [facility] [address] [id number] [address] [place] [address], [place] [address] Oct, [facility] [address] [id number] [address] [place] [address], [place] [address] Oct, [facility] [address] [id number] [address] [place] [address], [place] [address] Oct, [facility] [address] [id number] [address] [place] [address], [place] [address] Oct, [facility] [address] [id number] [address] [place] [address], [place] [address] Oct, [facility] [address] [id number] [address] [place] [address], [place] [address] Sep, [facility] [address] [id number] [address] [place] [address], [place] [address] Sep, [facility] [address] [id number] [address] [place] [address], [place] [address] Sep, [facility] [address] [id number] [address] [place] [address], [place] [address] Sep, [facility] [address] [id number] [address] [place] [address], [place] [address] Sep, [facility] [address] [id number] [address] [place] [address], [place] [address] Sep, [facility] [address] [id number] [address] [place] [address], [place] [address] Sep, [facility] [address] [id number] [address] [place] [address], [place] [address] Sep, [facility] [address] [id number] [address] [place] [address], [place] [address] Sep, [facility] [address] [id number] [address] [place] [address], [place] [address] Sep, [facility] [address] [id number] [address] [place] [address], [place] [address] Aug, [facility] [address] [id number] [address] [place] [address], [place] [address] Aug, [facility] [address] [id number] [address] [place] [address], [place] [address] Jul, [facility] [address] [id number] [address] [place] [address] [address] Jul, [facility] [address] [id number] [address] [place] [address], [place] [address] Jul, [facility] [address] [id number] [address] [place] [address], [place] [address] Jul, [facility] [address] [id number] [address] [place] [address], [place] [address] Jul, [facility] [address] [id number] [address] [place] [address], [place] [address] Jul, [facility] [address] [id number] [address] [place] [address], [place] [address] Jul, [facility] [address] [id number] [address] [place] [address], [place] [address] Jul, [facility] [address] [id number] [address] [place] [address], [place] [address] Jul, [facility] [address] [id number] [address] [place] [address], [place] [address] Jul, [facility] [address] [id number] [address] [place] [address], [place] [address] Jul, [facility] [address] [id number] [address] [place] [address], [place] [address] Jul, [facility] [address] [id number] [address] [place] [address] Jul, [facility] [address] [id number] [address] [place] [address] Jul, [facility] [address] [id number] [address] [place] [address], [place] [address] Jul, [facility] [address] [id number] [address] [place] [id number] Jul, [facility] [address] [id number] [address] [place] [id number] Jul, [facility] [address] [id number] [address] [place] [address], [place] [address] Jul, 2012 [facility] [address] [id number] [address] [place] [address], [place] [address] Jul, 2012 [facility] [address] [id number] [address] [place] [address], [place] [address] Jun, 2012 [facility] [address] [id number] [address] [place] [address], [place] [address] Jun, 2012 [facility] [address] [id number] [address] [place] [address], [place] [address] Jun, 2012 [facility] [address] [id number] [address] [place] [address], [place] [address] Jun, 2012 [facility] [address] [id number] [address] [place] [address], [place] [address] Jun, 2012 [facility] [address] [id number] [address] [place] [address], [place] [address] Jun, 2012 [facility] [address] [id number] [address] [place] [address], [place] [address] Jun, 2012 [facility] [address] [id number] [address] [place] [address], [place] [address] Jun, 2012 [facility] [address] [id number] [address] [place] [address] Jun, [facility] [address] [id number] [address] [place] [address], [place] [address] Jun, 2012 [facility] [address] [id number] [address] [place] [id number] Jun, [facility] [address] [id number] [address] [place] [address], [place] [address] May, 2012 [facility] [address] [id number] [address] [place] [address], [place] [address] 25 May, 2012 [facility] [address] [id number] [address] [place] [address] 19 May, 2012 [facility] [address] [id number] [address] [place] [address], [place] [address] 17 May, 2013 [facility] [address] [id number] [address] [place] [address], [place] [address] May, [facility] [address] [id number] [address] [place] [address], [place] [address] May, [facility] [address] [id number] [address] [place] [address], [place] [address] May, [facility] [address] [id number] [address] [place] [address], [place] [address] 05 May, 2013 [facility] [address] [id number] [address] [place] [address], [place] [address] Apr, [facility] [address] [id number] [address] [place] [address], [place] [address] Apr, [facility] [address] [id number] [address] [place] [address], [place] [address] Apr, [facility] [address] [id number] [address] [place] [address], [place] [address] Apr, [facility] [address] [id number] [address] [place] [address], [place] [address] Apr, [facility] [address] [id number] [address] [place] [address], [place] [address] Mar, [facility] [address] [id number] [address] [place] [address], [place] [address] Mar, [facility] [address] [id number] [address] [place] [address], [place] [address] Mar, [facility] [address] [id number] [address] [place] [address], [place] [address] Mar, [facility] [address] [id number] [address] [place] [address], [place] [address] Mar, [facility] [address] [id number] [address] [place] [address], [place] [address] Mar, [facility] [address] [id number] [address] [place] [address], [place] [address] Mar, [facility] [address] [id number] [address] [place] [address], [place] [address] Mar, [facility] [address] [id number] [address] [place] [address], [place] [address] Feb, [facility] [address] [id number] [address] [place] [address], [place] [address] Feb, [facility] [address] [id number] [address] [place] [address], [place] [address] January, [facility] [address] [id number] [address] [place] [address], [place] [address] January, [facility] [address] [id number] [address] [place] [address], [place] [address] Dec, [facility] [address] [id number] [address] [place] [address], [place] [address] Dec, [facility] [address] [id number] [address] [place] [address], [place] [address] Nov, [facility] [address] [id number] [address] [place] [address], [place] [address] Nov, [facility] [address] [id number] [address] [place] [address], [place] [address] Nov, [facility] [address] [id number] [address] [place] [address], [place] [address] Nov, [facility] [address] [id number] [address] [place] [address], [place] [address] Oct, [facility] [address] [id number] [address] [place] [address], [place] [address] Oct, [facility] [address] [id number] [address] [place] [address], [place] [address] Oct, [facility] [address] [id number] [address] [place] [address], [place] [address] 26 Oct, 2012 [facility] [address] [id number] [address] [place] [address], [place] [address] 16 Oct, 2012 [facility] [address] [id number] [address] [place] [address], [place] [address] 14 Oct, 2012 [facility] [address] [id number] [address] [place] [address], [place] [address] 08 Oct, 2012 [facility] [address] [id number] [address] [place] [address], [place] [address] 07 Oct, 2012 [facility] [address] [id number] [address] [place] [address], [place] [address] 03 Oct, 2012 [facility] [address] [id number] [address] [place] [address], [place] [address] 30 Sep, 2012 [facility] [address] [id number] [address] [place] [address], [place] [address] Sep, [facility] [address] [id number] [address] [place] [address], [place] [address] Sep, [facility] [address] [id number] [address] [place] [address], [place] [address] Sep, [facility] [address] [id number] [address] [place] [address], [place] [address] 17 Sep, 2012 [facility] [address] [id number] [address] [place] [address], [place] [address] Sep, [facility] [address] [id number] [address] [place] [address], [place] [address] Sep, [facility] [address] [id number] [address] [place] [address], [place] [address] 08 Sep, 2012 [facility] [address] [id number] [address] [place] [address], [place] [address] Aug, [facility] [address] [id number] [address] [place] [address], [place] [address] Aug, [facility] [address] [id number] [address] [place] [address], [place] [address] Aug, [facility] [address] [id number] [address] [place] [address], [place] [address] Aug, [facility] [address] [id number] [address] [place] [address], [place] [address] Aug, [facility] [address] [id number] [address] [place] [address], [place] [address] Aug, [facility] [address] [id number] [address] [place] [address], [place] [address] Aug, [facility] [address] [id number] [address] [place] [address], [place] [address] Aug, [facility] [address] [id number] [address] [place] [address], [place] [address] Jul, [facility] [address] [id number] [address] [place] [address], [place] [address] Jul, [facility] [address] [id number] [address] [place] [address], [place] [address] Jul, [facility] [address] [id number] [address] [place] [address], [place] [address] Jul, [facility] [address] [id number] [address] [place] [address], [place] [address] Jul, [facility] [address] [id number] [address] [place] [address], [place] [address] Jul, [facility] [address] [id number] [address] [place] [address], [place] [address] Jun, [facility] [address] [id number] [address] [place] [address], [place] [address] Jun, [facility] [address] [id number] [address] [place] [address], [place] [address] Jun, [facility] [address] [id number] [address] [place] [address], [place] [address] 23 Jun, 2012 [facility] [address] [id number] [address] [place] [address], [place] [address] Jun, [facility] [address] [id number] [address] [place] [address], [place] [address] Jun, [facility] [address] [id number] [address] [place] [address], [place] [address] Jun, [facility] [address] [id number] [address] [place] [address], [place] [address] Jun, [facility] [address] [id number] [address] [place] [address], [place] [address] Jun, [facility] [address] [id number] [address] [place] [address], [place] [address] 26 May, 2012 [facility] [address] [id number] [address] [place] [address], [place] [address] 24 May, 2012 [facility] [address] [id number] [address] [place] [address], [place] [address] 18 May, 2012 [facility] [address] [id number] [address] [place] [address], [place] [address] 30 Apr, 2012 [facility] [address] [id number] [address] [place] [address], [place] [address] 29 Apr, 2012 [facility] [address] [id number] [address] [place] [address], [place] [address] Apr, [facility] [address] [id number] [address] [place] [address], [place] [address] 14 Apr, 2012 [facility] [address] [id number] [address] [place] [address], [place] [address] Apr, [facility] [address] [id number] [address] [place] [address], [place] [address] Apr, [facility] [address] [id number] [address] [place] [address], [place] [address] Mar, [facility] [address] [id number] [address] [place] [address], [place] [address] Mar, [facility] [address] [id number] [address] [place] [address], [place] [address] Mar, [facility] [address] [id number] [address] [place] [address], [place] [address] Mar, [facility] [address] [id number] [address] [place] [address], [place] [address] Feb, [facility] [address] [id number] [address] [place] [address], [place] [address] Feb, [facility] [address] [id number] [address] [place] [address], [place] [address] Feb, [facility] [address] [id number] [address] [place] [address], [place] [address] Feb, [facility] [address] [id number] [address] [place] [address], [place] [address] Feb, [facility] [address] [id number] [address] [place] [address], [place] [address] January, [facility] [address] [id number] [address] [place] [address], [place] [address] January, [facility] [address] [id number] [address] [place] [address], [place] [address] January, [facility] [address] [id number] [address] [place] [address], [place] [address] January, [facility] [address] [id number] [address] [place] [address], [place] [address] January, [facility] [address] [id number] [address] [place] [address], [place] [address] January, [facility] [address] [id number] [address] [place] [address], [place] [address] Dec, [facility] [address] [id number] [address] [place] [address], [place] [address] 24 Dec, 2011 [facility] [address] [id number] [address] [place] [address], [place] [address] 17 Dec, 2011 [facility] [address] [id number] [address] [place] [address], [place] [address] 09 Dec, 2011 [facility] [address] [id number] [address] [place] [address], [place] [address] 06 Dec, 2011 [facility] [address] [id number] [address] [place] [address], [place] [address] 27 Nov, 2011 [facility] [address] [id number] [address] [place] [address], [place] [address] 14 Nov, 2011 [facility] [address] [id number] [address] [place] [address], [place] [address] 12 Nov, 2011 [facility] [address] [id number] [address] [place] [address], [place] [address] 07 Nov, 2011 [facility] [address] [id number] [address] [place] [address], [place] [address] 29 Oct, 2011 [facility] [address] [id number] [address] [place] [address], [place] [address] 28 Oct, 2011 [facility] [address] [id number] [address] [place] [address], [place] [address] 24 Oct, 2011 [facility] [address] [id number] [address] [place] [address], [place] [address] 13 Oct, 2011 [facility] [address] [id number] [address] [place] [address], [place] [address] 08 Oct, 2011 [facility] [address] [id number] [address] [place] [address], [place] [address] 31 Sep, 2011 [facility] [address] [id number] [address] [place] [address], [place] [address] 30 Sep, 2011 [facility] [address] [id number] [address] [place] [address], [place] [address] Sep, [facility] [address] [id number] [address] [place] [address], [place] [address] Sep, [facility] [address] [id number] [address] [place] [address], [place] [address] Sep, [facility] [address] [id number] [address] [place] [address], [place] [address] Sep, [facility] [address] [id number] [address] [place] [address], [place] [address] Aug, [facility] [address] [id number] [address] [place] [address], [place] [address] Aug, [facility] [address] [id number] [address] [place] [address], [place] [address] Aug, [facility] [address] [id number] [address] [place] [address], [place] [address] Jul, [facility] [address] [id number] [address] [place] [address], [place] [address] Jul, [facility] [address] [id number] [address] [place] [address], [place] [address] Jul, [facility] [address] [id number] [address] [place] [address] Jul, [facility] [address] [id number] [address] [place] [address] Jun, [facility] [address] [id number] [address] [place] [address] Jun, [facility] [address] [id number] [address] [place] [address], [place] [address] 18 Jun, 2011 [facility] [address] [id number] [address] [place] [address], [place] [address] Jun, [facility] [address] [id number] [address] [place] [id number] Jun, [facility] [address] [id number] [address] [place] [address] 10 Jun, 2011 [facility] [address] [id number] [address] [place] [address], [place] [address] 11 Mar, 2011 [facility] [address] [id number] [address] [place] [address], [place] [address] 18 Dec, 2010 [facility] [address] [id number] [address] [place] [address], [place] [address] 11 Dec, 2010 [facility] [address] [id number] [address] [place] [address], [place] [address] 18 Nov, 2010 [facility] [address] [id number] [address] [place] [address], [place] [address] 16 Nov, 2010 [facility] [address] [id number] [address] [place] [address], [place] [address] 10 Sep, 2010 [facility] [address] [id number] [address] [place] [address], [place] [address] 31 Aug, 2010 [facility] [address] [id number] [address] [place] [address], [place] [address] 29 Aug, 2010 [facility] [address] [id number] [address] [place] [address], [place] [address] 29 Aug, 2010 [facility] [address] [id number] [address] [place] [address], [place] [address] 29 Aug, 2010 [facility] [address] [id number] [address] [place] [address], [place] [address] 27 Aug, 2010 [facility] [address] [id number] [address] [place] [address], [place] [address] 14 Aug, 2010 [facility] [address] [id number] [address] [place] [address], [place] [address] 08 Aug, 2010 [facility] [address] [id number] [address] [place] [address], [place] [address] 08 Aug, 2010 [facility] [address] [id number] [address] [place] [address], [place] [address] 07 Aug, 2010 [facility] [address] [id number] [address] [place] [address], [place] [address] Aug, [facility] [address] [id number] [address] [place] [address], [place] [address] Aug, [facility] [address] [id number] [address] [place] [address], [place] [address] Aug, [facility] [address] [id number] [address] [place] [address], [place] [address] Jul, [facility] [address] [id number] [address] [place] [address], [place] [address] Jul, [facility] [address] [id number] [address] [place] [address], [place] [address] Jul, [facility] [address] [id number] [address] [place] [address], [place] [address] Jul, [facility] [address] [id number] [address] [place] [address], [place] [address] Jul, [facility] [address] [id number] [address] [place] [address], [place] [address] Jul, [facility] [address] [id number] [address] [place] [address], [place] [address] Jun, [facility] [address] [id number] [address] [place] [address], [place] [address] Jun, [facility] [address] [id number] [address] [place] [address], [place] [address] Jun, [facility] [address] [id number] [address] [place] [address], [place] [address] Jun, [facility] [address] [id number] [address] [place] [address], [place] [address] Apr, [facility] [address] [id number] [address] [place] [address], [place] [address] Mar, [facility] [address] [id number] [address] [place] [address], [place] [address] Feb, [facility] [address] [id number] [address] [place] [phone] January, [facility] [address] [id number] [address] [place] [address], [place] [address] 15 Dec, 2009 [facility] [address] [id number] [address] [place] [id number] Nov, [facility] [address] [id number] [address] [place] [address], [place] [address] Aug, [facility] [address] [id number] [address] [place] [address], [place] [address] Aug, [facility] [address] [id number] [address] [place] [phone] Aug, [facility] [address] [id number] [address] [place] [address], [place] [address] Jul, [facility] [address] [id number] [address] [place] [phone] Jul, [facility] [address] [id number] [address] [place] [phone] Jul, [facility] [address] [id number] [address] [place] [phone] 30 Jun, 2009 [facility] [address] [id number] [address] [place] [id number] 29 Jun, 2009 [facility] [address] [id number] [address] [place] [phone] Jun, [facility] [address] [id number] [address] [place] [id number] Jun, [facility] [address] [id number] [address] [place] [phone] Jun, [facility] [address] [id number] [address] [place] [phone] Jun, [facility] [address] [id number] [address] [place] [id number] 17 Apr, 2009 [facility] [address] [facility] [id number] [address] [place] [phone] Apr, [facility] [address] [facility] [id number] [address] [place] [phone] Feb, [facility] [address] [facility] [id number] [address] [place] [phone] January, [facility] [address] [facility] [id number] [address] [place] [phone] Dec, IMMUNIZATIONS No Known Immunizations SOCIAL HISTORY Never Assessed REASON FOR VISIT PLAN OF CARE VITAL SIGNS Height 67 in 2014-12-17 Weight 302 lbs 2014-12-17 Temperature 98 degrees Fahrenheit 2014-12-17 Heart Rate 68 bpm 2014-12-17 Respiratory Rate 26 2014-12-17 Blood pressure systolic 132 mmHg 2014-12-17 Blood pressure diastolic 70 mmHg 2014-12-17 MEDICATIONS Unknown Medications RESULTS No Results PROCEDURES Procedure Date Ordered Result Body Site COMPLETE CBC W/AUTO DIFF WBC December 17, 2014 RBC SED RATE, NONAUTOMATED December 17, 2014 C-REACTIVE PROTEIN December 17, 2014 ASSAY OF PSA, TOTAL December 17, 2014 GLYCATED HEMOGLOBIN TEST December 17, 2014 MICROALBUMIN, SEMIQUANT December 17, 2014 LIPID PANEL December 17, 2014 COMPREHEN METABOLIC PANEL December 17, 2014 URINALYSIS, AUTO, W/O SCOPE December 17, 2014 VISIT December 17, 2014 VENIPUNCT, ROUTINE* December 17, 2014 INSTRUCTIONS MEDICATIONS ADMINISTERED No Known Medications [...] inability to urinate 09/16/15 Hospitalization History [facility] inpatient mental health ea rly 2000's Hospitalization History hyperkalemia 10/2017 Hospitalization History fluid in lung
--- OUTSIDE RECORDS SUMMARY | 2020-03-01 17:26 | XMS REPORT ---
Author Author Michele WASHBURN Organization [facility] Address [address] [place] [address] Care Team Providers Care Maintenance Service Dispatcher Name Role Phone NOEMI WASHBURN Unavailable PROBLEMS Type Condition ICD9-CM Code PAH89-NX Code Onset Dates Condition S tatus SNOMED Code Problem Cough R05 Active 97806013 Problem Benign prostatic hyperplasia with lower urinary tract symptoms, unspecified morphology N40.1 Active 64585 6007 Problem Eustachian tube dysfunction, unspecified laterality H69.80 Active 61160815 Problem Chronic pain G89.29 Active 1617150 1 Problem DM neuro manif type II E11.49 Active 94126793 Problem Diabetes E11.9 Active 06526071 Problem Leukocytosis D72.829 Active 4572179 06 Problem Falling R29.6 Active 876402967 Problem Pressure ulcer of other site, stage 3 L89.893 Active 107793052 Problem 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 Active 112863179 Problem Eye exam abnormal R93.8 Active 16 0964668 Problem Dysuria R30.0 Active 50820159 Problem Hypokalemia E87.6 Active 97243233 Problem Morbid obesity E66.01 Active 48620 6002 Problem Anxiety F41.9 Active 40727347 Problem Diabetic polyneuropathy associated with type 2 d iabetes mellitus E11.42 Active 07215016 Problem Essential hypertension I10 Active 75403167 Problem Bilateral primary osteoarthritis of knee M17.0 Active 630620745 Problem Polyneuropathy associated with underlying disease G63 Active 307290848 Problem Anemia of chronic illness D63.8 Acti ve 194730298 Problem Lymphocytosis D72.820 Active 988422 09 Problem Retinal edema H35.81 Active 713111 6 Problem Chronic lymphocytic leukemia C91.10 A ctive 76261530 Problem Bipolar disorder, in partial remission, most rec ent episode depressed F31.75 Active 32895637 Problem Pure hypercholesterolemia E78.00 Acti ve 942183495 Problem Primary osteoarthritis of right knee M17.11 Active [id number] Problem Bipolar disorder F31.9 Active 137 44392 Problem Bipolar I disorder, most recent episode (or curr ent) mixed, moderate F31.62 Active 29167844 Problem Chronic diastolic (congestive) heart failure I50.3 2 Active 948804547 Problem Reactive airway disease J45.909 Active 821033907642 Problem Insomnia, unspecified type G47.00 Act sharon 357464485 Problem Other chronic pain G89.29 Active 8 1599507 Problem Other iron deficiency anemia D50.8 A ctive 98652032 Problem Mild cognitive impairment G31.84 Acti ve 965531588 Problem Skin cancer C44.90 Active 86424813 7 ALLERGIES No Information ENCOUNTERS Encounter Location Date Diagnosis [place] [address] [address] [facility] [id number] [address] [place] [id number] Mar, [place] [address] [address] [place] [id number] [address] [place] [id number] Mar, [place] [address] [address] [facility] [id number] [address] [place] [address] Feb, Bipolar disorder F31.9 [place] [address] [address] [facility] [id number] [address] [place] [address] Feb, Cellulitis of right upper ex tremity L03.113 and Skin abrasion T14.8XXA [place] [address] [address] [facility] [id number] [address] [place] [address] Feb, Bipolar disorder, in partial remission, most recent episode depressed F31.75 and Mild cognitive impairment G31.84 [place] [address] [facility] [id number] [address] [place] [address] Feb, Chronic pain G89.29 [place] [address] [address] [facility] [id number] [address] [place] [address] Feb, Bipolar disorder, in partial remission, most recent episode depressed F31.75 and Mild cognitive impairment G31.84 [place] [address] [address] [facility] [id number] [address] [place] [address] January, Bipolar disorder, in partial remission, most recent episode depressed F31.75 and Mild cognitive impairment G31.84 [facility] [address] [id number] [address] [place] [address] January, Chronic pain G89.29 and Bipo lar disorder F31.9 [facility] [address] [id number] [address] [place] [address] January, Bipolar disorder, in partial remission, most recent episode depressed F31.75 and Mild cognitive impairment G31.84 [facility] [address] [id number] [address] [place] [address] Dec, [facility] [address] [id number] [address] [place] [id number] Dec, Chronic pain G89.29 and Bipo lar disorder F31.9 [facility] [address] [id number] [address] [place] [id number] Dec, Edema of both lower extremit ies R60.0 [facility] [address] [id number] [address] [place] [id number] Dec, Bipolar disorder F31.9 [facility] [address] [id number] [address] [place] [address] Dec, Bipolar disorder, in partial remission, most recent episode depressed F31.75 and Mild cognitive impairment G31.84 [facility] [address] [id number] [address] [place] [id number] Nov, [facility] [address] [id number] [address] [place] [address] Nov, Chronic pain G89.29 [facility] [address] [id number] [address] [place] [id number] Nov, Bipolar disorder, in partial remission, most recent episode depressed F31.75 and Mild cognitive impairment G31.84 [facility] [address] [id number] [address] [place] [id number] Nov, Bipolar disorder F31.9 [place] [address] [address] [place] [id number] [address] [place] [id number] 04 Nov, 2018 Encounter for Medicare hilary [...] unspecified morphology N40.1 and Essential hypertension I10 [address] [id number] 21 Oct, 2018 Chronic pain G89.[address] [address] 18 Oct, 2018 Diabetes E11.9 [place] [address] [address] [place] [id number] [address] [place] [id number] Oct, Bipolar I disorder, most rec ent episode (or current) mixed, moderate F31.62 and Mild cognitive impairment G31.84 [place] [id number] [address] [place] [id number] Oct, Bipolar I disorder, most rec ent episode (or current) mixed, moderate F31.62 and Mild cognitive impairment G31.84 [place] [address] [address] [place] [id number] [address] [place] [address] Sep, Bipolar I disorder, most rec ent episode (or current) mixed, moderate F31.62 and Mild cognitive impairment G31.84 [place] [id number] [address] [place] [address] Sep, [place] [id number] [address] [place] [address] Sep, Diabetes E11.9 ; Hypoxia R09 .02 ; Hyperglycemia R73.9 ; Therapeutic drug monitoring Z51.81 ; BMI 50.0-59.9, adult Z68.43 and Skin cancer C44.90 [place] [address] [address] [facility] [id number] [address] [place] [address] Sep, Chronic pain G89.29 [facility] [address] [facility] [id number] [address] [place] [id number] Sep, Bipolar I disorder, most rec ent episode (or current) mixed, moderate F31.62 [facility] [address] [facility] [id number] [address] [place] [phone] Sep, [place] [address] [address] [facility] [id number] [address] [place] [id number] Sep, [facility] [address] [facility] [id number] [address] [place] [id number] Aug, Chronic pain G89.29 [place] [address] [address] [facility] [id number] [address] [place] [id number] Aug, Bipolar I disorder, most rec ent episode (or current) mixed, moderate F31.62 [place] [address] [address] [facility] [id number] [address] [place] [id number] Aug, Bipolar I disorder, most rec ent episode (or current) mixed, moderate F31.62 and Mild cognitive impairment G31.84 [place] [address] [address] [facility] [id number] [address] [place] [address] Jul, [place] [address] [address] [facility] [id number] [address] [place] [address] Jul, Chronic pain G89.29 [place] [address] [address] [facility] [id number] [address] [place] [id number] Jul, Bipolar I disorder, most rec ent episode (or current) mixed, moderate F31.62 and Mild cognitive impairment G31.84 [place] [facility] [id number] [address] [place] [address] Jul, Bipolar I disorder, most rec ent episode (or current) mixed, moderate F31.62 and MCI (mild cognitive impairment) G31.84 [facility] [address] [id number] [address] [place] [id number] Jul, [facility] [address] [id number] [address] [place] [id number] Jul, [facility] [address] [facility] [id number] [address] [place] [id number] Jul, Bipolar I disorder, most rec ent episode (or current) mixed, moderate F31.62 [facility] [address] [id number] [address] [place] [id number] Jul, Chronic pain G89.29 [facility] [address] [facility] [id number] [address] [place] [id number] Jun, Bipolar I disorder, most rec ent episode (or current) mixed, moderate F31.62 [place] [address] [address] [facility] [id number] [address] [place] [id number] Jun, Pre-procedure lab exam Z01.8 12 [facility] [address] [id number] [place] [id number] Jun, [facility] [address] [facility] [id number] [address] [place] [id number] Jun, [facility] [address] [facility] [id number] [address] [place] [id number] Jun, [facility] [address] [facility] [id number] [address] [place] [address] Jun, Forgetfulness R68.89 ; Pre-s yncope R55 ; Localized edema R60.0 ; Other iron deficiency anemia D50.8 and BMI 50.0-59.9, adult Z68.43 [facility] [address] [id number] [address] [place] [id number] Jun, Chronic pain G89.29 [facility] [address] [facility] [id number] [address] [place] [address] Jun, Chronic pain G89.29 [facility] [address] [facility] [id number] [address] [place] [address] Jun, Bipolar I disorder, most rec ent episode (or current) mixed, moderate F31.62 [facility] [address] [facility] [id number] [address] [place] [id number] May, Chronic pain G89.29 [facility] [address] [facility] [id number] [address] [place] [address] Apr, [facility] [address] [facility] [id number] [address] [place] [address] Apr, Chronic pain G89.29 [place] [address] [address] [facility] [id number] [address] [place] [address] Apr, Primary osteoarthritis of ri ght knee M17.11 [place] [address] [address] [facility] [id number] [address] [place] [id number] Mar, [place] [address] [address] [facility] [id number] [address] [place] [address] Mar, BMI 50.0-59.9, adult Z68.43 and Bipolar disorder, in partial remission, most recent episode depressed F31.75 [place] [address] [address] [place] [id number] [address] [place] [address] Mar, Diabetes E11.9 ; Pure hyperc holesterolemia E78.00 ; Essential hypertension I10 ; Nausea with vomiting, unspecified R11.2 and Headache, unspecified headache type R51 [place] [address] [facility] [id number] [address] [place] [id number] Mar, Bipolar I disorder, most rec ent episode (or current) mixed, moderate F31.62 [place] [address] [address] [facility] [id number] [address] [place] [id number] Mar, Bipolar I disorder, most rec ent episode (or current) mixed, moderate F31.62 [place] [address] [address] [place] [id number] [address] [place] [id number] 13 Mar, 2018 Chronic pain G89.29 [facility] [address] [id number] [address] [place] [id number] Mar, Bipolar I disorder, most rec ent episode (or current) mixed, moderate F31.62 [facility] [address] [facility] [id number] [address] [place] [id number] Feb, Bipolar I disorder, most rec ent episode (or current) mixed, moderate F31.62 [facility] [address] [facility] [id number] [address] [place] [id number] 14 Feb, 2018 Chronic pain G89.29 [facility] [address] [facility] [id number] [address] [place] [address] Feb, Decubitus ulcer of right josselin t, stage 3 L89.893 and BMI 50.0-59.9, adult Z68.43 [facility] [address] [place] [id number] [address] [place] [id number] Feb, Bipolar I disorder, most rec ent episode (or current) mixed, moderate F31.62 [facility] [address] [facility] [id number] [address] [place] [id number] Feb, [facility] [address] [facility] [id number] [address] [place] [id number] January, [facility] [address] [facility] [id number] [address] [place] [address] January, Chronic pain G89.29 [facility] [address] [facility] [id number] [address] [place] [id number] January, Bipolar I disorder, most rec ent episode (or current) mixed, moderate F31.62 [facility] [address] [facility] [id number] [address] [place] [address] January, Bipolar I disorder, most rec ent episode (or current) mixed, moderate F31.62 [facility] [address] [facility] [id number] [address] [place] [id number] Dec, Bipolar I disorder, most rec ent episode (or current) mixed, moderate F31.62 and BMI 50.0-59.9, adult Z68.43 [place] [address] [address] [place] [id number] [address] [place] [address] Dec, Bipolar I disorder, most rec ent episode (or current) mixed, moderate F31.62 [place] [address] [place] [id number] [place] [address] Dec, Chronic pain G89.29 [place] [address] [place] [id number] [place] [address] Dec, DM neuro manif type II E11.4 9 ; Right flank pain R10.9 ; 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 ; Encounter for medication monitoring Z51.81 and BMI 50.0-59.9, adult Z68.43 [place] [address] [address] Dec, Bipolar I disorder, most rec ent episode (or current) mixed, moderate F31.62 [place] [address] [address] Nov, Bipolar I disorder, most rec ent episode (or current) mixed, moderate F31.62 [place] [address] [place] [id number] [address] [place] [address] Nov, Chronic pain G89.29 [place] [address] [place] [id number] [address] [place] [address] Nov, Bipolar I disorder, most rec ent episode (or current) mixed, moderate F31.62 [place] [address] [place] [id number] [address] [place] [address] Nov, Hypokalemia E87.6 [place] [address] [place] [id number] [address] [place] [id number] Nov, Bipolar I disorder, most rec ent episode (or current) mixed, moderate F31.62 [facility] [address] [facility] [id number] [address] [place] [address] Oct, Chronic pain G89.29 [facility] [address] [place] [id number] [address] [place] [address] Oct, BMI 50.0-59.9, adult Z68.43 and Bipolar I disorder, most recent episode (or current) mixed, moderate F31.62 [facility] [address] [place] [id number] [place] [address] Oct, Bipolar I disorder, most rec ent episode (or current) mixed, moderate F31.62 [place] [address] [place] [id number] [place] [address] Oct, [place] [address] [address] Oct, Hypokalemia E87.6 [place] [address] [place] [id number] [place] [address] Oct, DM neuro manif type II E11.4 9 [place] [address] [place] [id number] [place] [address] Oct, Bipolar I disorder, most rec ent episode (or current) mixed, moderate F31.62 [place] [address] [place] [id number] [address] [place] [id number] Oct, Bipolar I disorder, most rec ent episode (or current) mixed, moderate F31.62 [place] [address] [place] [id number] [address] [place] [address] 14 Oct, 2017 Hyperkalemia E87.5 ; Falling R29.6 ; BMI 50.0-59.9, adult Z68.43 and Acute left ankle pain M25.572 [place] [address] [place] [id number] [address] [place] [address] Oct, DM neuro manif type II E11.4 9 [place] [address] [place] [id number] [address] [place] [address] Oct, [place] [address] [address] Sep, Chronic pain G89.29 [facility] [address] [place] [id number] [place] [address] Sep, [place] [address] [address] Sep, Bilateral primary osteoarthr itis of knee M17.[address] [address] Sep, Generalized edema R60.1 [place] [address] [place] [id number] [place] [address] Sep, Bipolar I disorder, most rec ent episode (or current) mixed, moderate F31.62 [place] [address] [address] Sep, Hypoxia R09.02 ; Other hyper volemia E87.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 ; Anemia of chronic illness D63.8 and BMI 50.0- 59.9, adult Z68.43 [place] [address] [address] Sep, [place] [address] [address] Sep, Bipolar I disorder, most rec ent episode (or current) mixed, moderate F31.62 [place] [address] [place] [id number] [place] [address] Aug, Chronic pain G89.29 [place] [address] [place] [id number] [address] [place] [address] Aug, Generalized edema R60.1 [facility] [address] [facility] [id number] [address] [place] [address] 18 Aug, 2017 [place] [address] [facility] [id number] [address] [place] [address] 18 Aug, 2017 [facility] [address] [facility] [id number] [address] [place] [address] 14 Aug, 2017 Bipolar I disorder, most rec ent episode (or current) mixed, moderate F31.62 [place] [address] [facility] [id number] [address] [place] [address] Aug, Bipolar I disorder, most rec ent episode (or current) mixed, moderate F31.62 [place] [address] [facility] [id number] [address] [place] [address] 04 Aug, 2017 Chronic pain G89.29 [place] [address] [place] [id number] [address] [place] [id number] Jul, Bipolar I disorder, most rec ent episode (or current) mixed, moderate F31.62 [place] [address] [place] [id number] [address] [place] [address] Jul, Bipolar I disorder, most rec ent episode (or current) mixed, moderate F31.62 and BMI 60.0-69.9, adult Z68.44 [place] [address] [place] [id number] [address] [place] [address] 16 Jul, 2017 Bipolar I disorder, most rec ent episode (or current) mixed, moderate F31.62 [place] [address] [facility] [id number] [address] [place] [address] 06 Jul, 2017 Chronic pain G89.29 [place] [address] [facility] [id number] [address] [place] [address] 02 Jul, 2017 Bipolar I disorder, most rec ent episode (or current) mixed, moderate F31.62 [place] [address] [facility] [id number] [address] [place] [address] Jun, Polyneuropathy associated wi th underlying disease G63 and Diabetes E11.9 [facility] [address] [id number] [address] [place] [id number] 16 Jun, 2017 Bipolar I disorder, most rec ent episode (or current) mixed, moderate F31.62 [facility] [address] [id number] [address] [place] [address] 09 Jun, 2017 Chronic pain G89.29 [facility] [address] [id number] [address] [place] [address] May, Bipolar I disorder, most rec ent episode (or current) mixed, moderate F31.62 [place] [address] [id number] [address] [place] [address] May, Bipolar I disorder, most rec ent episode (or current) mixed, moderate F31.62 [facility] [address] [facility] [id number] [address] [place] [address] May, Diabetic polyneuropathy asso ciated with type 2 diabetes mellitus E11.42 [facility] [address] [id number] [address] [place] [address] 18 May, 2017 Bipolar I disorder, most rec ent episode (or current) mixed, moderate F31.62 [facility] [address] [facility] [id number] [address] [place] [id number] 13 May, 2017 Bipolar I disorder, most rec ent episode (or current) mixed, moderate F31.62 [place] [address] [id number] [address] [place] [address] May, Chronic pain G89.29 [facility] [address] [id number] [address] [place] [id number] Apr, Bipolar I disorder, most rec ent episode (or current) mixed, moderate F31.62 [facility] [address] [id number] [address] [place] [address] Apr, [facility] [address] [id number] [address] [place] [address] Apr, Chronic pain G89.29 and DM n euro manif type II E11.49 [facility] [address] [id number] [address] [place] [address] Apr, [facility] [address] [facility] [id number] [address] [place] [address] Apr, Bipolar I disorder, most rec ent episode (or current) mixed, moderate F31.62 [facility] [address] [id number] [address] [place] [address] Apr, Chronic pain G89.29 [facility] [address] [id number] [address] [place] [id number] Apr, Iliotibial band syndrome, le ft M76.32 [facility] [address] [facility] [id number] [address] [place] [address] Apr, Bipolar I disorder, most rec ent episode (or current) mixed, moderate F31.62 [facility] [address] [facility] [id number] [address] [place] [id number] Mar, Bipolar I disorder, most rec ent episode (or current) mixed, moderate F31.62 [facility] [address] [id number] [address] [place] [id number] Mar, Bipolar I disorder, most rec ent episode (or current) mixed, moderate F31.62 [facility] [address] [facility] [id number] [address] [place] [id number] Mar, [facility] [address] [facility] [id number] [address] [place] [id number] Mar, Bipolar I disorder, most rec ent episode (or current) mixed, moderate F31.62 [facility] [address] [facility] [id number] [address] [place] [id number] Mar, Chronic pain G89.29 [facility] [address] [facility] [id number] [address] [place] [id number] Mar, Bipolar I disorder, most rec ent episode (or current) mixed, moderate F31.62 [facility] [address] [id number] [address] [place] [address] Mar, Bipolar I disorder, most rec ent episode (or current) mixed, moderate F31.62 [facility] [address] [facility] [id number] [address] [place] [address] Mar, Acute pain of left knee M25. 562 ; Left hip pain M25.552 ; Generalized edema R60.1 and Tongue swelling R22.0 [facility] [address] [id number] [address] [place] [address] Mar, [facility] [address] [facility] [id number] [address] [place] [address] Feb, Chronic pain G89.29 [facility] [address] [facility] [id number] [address] [place] [address] Feb, Diabetes E11.9 [facility] [address] [facility] [id number] [address] [place] [address] January, Chronic pain G89.29 [facility] [address] [id number] [address] [place] [address] January, [facility] [address] [facility] [id number] [address] [place] [id number] January, Bipolar I disorder, most rec ent episode (or current) mixed, moderate F31.62 [facility] [address] [facility] [id number] [address] [place] [address] Dec, Bipolar I disorder, most rec ent episode (or current) mixed, moderate F31.62 [facility] [address] [id number] [address] [place] [address] Dec, Chronic pain G89.29 [facility] [address] [facility] [id number] [address] [place] [id number] Dec, Bipolar I disorder, most rec ent episode (or current) mixed, moderate F31.62 [facility] [address] [facility] [id number] [address] [place] [address] Dec, Diabetes E11.9 ; Essential h ypertension I10 ; Chronic pain G89.29 and Morbid obesity E66.01 [facility] [address] [facility] [id number] [address] [place] [id number] Dec, [facility] [address] [facility] [id number] [address] [place] [id number] Dec, Bipolar I disorder, most rec ent episode (or current) mixed, moderate F31.62 [facility] [address] [facility] [id number] [address] [place] [address] Dec, Bipolar I disorder, most rec ent episode (or current) mixed, moderate F31.62 [facility] [address] [place] [id number] [address] [place] [address] Nov, Chronic pain G89.29 [facility] [address] [facility] [id number] [address] [place] [address] Nov, Bipolar I disorder, most rec ent episode (or current) mixed, moderate F31.62 [facility] [address] [facility] [id number] [address] [place] [phone] Nov, [facility] [address] [place] [id number] [address] [place] [id number] Nov, Bipolar I disorder, most rec ent episode (or current) mixed, moderate F31.62 [facility] [address] [facility] [id number] [address] [place] [address] Nov, Bipolar I disorder, most rec ent episode (or current) mixed, moderate F31.62 [facility] [address] [facility] [id number] [address] [place] [address] Nov, [facility] [address] [facility] [id number] [address] [place] [phone] Nov, [facility] [address] [place] [id number] [address] [place] [phone] Nov, [facility] [address] [facility] [id number] [address] [place] [address] Oct, Chronic pain G89.29 [facility] [address] [facility] [id number] [address] [place] [address] Oct, Bipolar I disorder, most rec ent episode (or current) mixed, moderate F31.62 [facility] [address] [facility] [id number] [address] [place] [address] Oct, [facility] [address] [facility] [id number] [address] [place] [id number] Oct, Chronic pain G89.29 ; Diabet es E11.9 ; Anxiety F41.9 and 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 [facility] [address] [facility] [id number] [address] [place] [address] Oct, [facility] [address] [facility] [id number] [address] [place] [id number] Oct, Diabetes E11.9 [facility] [address] [facility] [id number] [address] [place] [id number] Oct, Bipolar I disorder, most rec ent episode (or current) mixed, moderate F31.62 [facility] [address] [facility] [id number] [address] [place] [address] Sep, Chronic pain G89.29 [facility] [address] [facility] [id number] [address] [place] [address] Sep, Chronic pain G89.29 [facility] [address] [facility] [id number] [address] [place] [id number] Aug, Chronic pain G89.29 [facility] [address] [facility] [id number] [address] [place] [address] Jul, [facility] [address] [facility] [id number] [address] [place] [id number] Jul, Diabetes E11.9 [facility] [address] [facility] [id number] [address] [place] [id number] Jul, Chronic pain G89.29 [place] [address] [facility] [id number] [address] [place] [id number] Jul, Bipolar I disorder, most rec ent episode (or current) mixed, moderate F31.62 [place] [address] [facility] [id number] [address] [place] [id number] Jun, Bipolar I disorder, most rec ent episode (or current) mixed, moderate F31.62 [place] [address] [facility] [id number] [address] [place] [address] Jun, [place] [address] [facility] [id number] [address] [place] [address] Jun, Bipolar I disorder, most rec ent episode (or current) mixed, moderate F31.62 [place] [address] [facility] [id number] [address] [place] [address] May, Insomnia, unspecified type G 47.00 [place] [address] [facility] [id number] [address] [place] [phone] May, Bipolar I disorder, most rec ent episode (or current) mixed, moderate F31.62 [place] [address] [facility] [id number] [address] [place] [id number] 14 May, 2016 [place] [address] [facility] [id number] [address] [place] [id number] 08 May, 2016 Bipolar I disorder, most rec ent episode (or current) mixed, moderate F31.62 [place] [address] [facility] [id number] [address] [place] [id number] 06 May, 2016 Diabetes E11.9 and Essential hypertension I10 [place] [address] [facility] [id number] [address] [place] [address] Apr, Chronic pain G89.29 [place] [address] [facility] [id number] [address] [place] [id number] Apr, Bipolar I disorder, most rec ent episode (or current) mixed, moderate F31.62 [facility] [address] [id number] [address] [place] [address] Apr, [facility] [address] [id number] [address] [place] [id number] Apr, [facility] [address] [facility] [id number] [address] [place] [id number] Mar, Chronic pain G89.29 ; Headac he, unspecified headache type R51 ; Neuropathy G62.9 ; Pain of right hip joint M25.551 and Essential hypertension I10 [place] [address] [id number] [address] [place] [address] Mar, Chronic pain G89.29 [place] [address] [facility] [id number] [address] [place] [address] Mar, Bipolar I disorder, most rec ent episode (or current) mixed, moderate F31.62 [facility] [address] [id number] [address] [place] [id number] Feb, Bipolar I disorder, most rec ent episode (or current) mixed, moderate F31.62 and Insomnia, unspecified type G47.00 [place] [address] [facility] [id number] [address] [place] [phone] Feb, Chronic pain G89.29 [facility] [address] [id number] [address] [place] [address] Feb, Bipolar I disorder, most rec ent episode (or current) mixed, moderate F31.62 [place] [address] [id number] [address] [place] [address] January, Bipolar I disorder, most rec ent episode (or current) mixed, moderate F31.62 [place] [address] [facility] [id number] [address] [place] [address] January, Chronic pain G89.29 [place] [address] [address] January, Chronic pain G89.29 and Esse ntial hypertension I10 [facility] [address] [address] January, Bipolar I disorder, most rec ent episode (or current) mixed, moderate F31.62 [facility] [address] [address] Dec, [facility] [address] [address] Dec, [facility] [address] [address] Dec, [facility] [address] [address] Dec, [facility] [address] [address] Nov, Reactive airway disease J45. 909 [facility] [address] [address] Nov, [facility] [address] [address] Nov, [facility] [address] [address] Nov, [facility] [address] [address] Nov, [facility] [address] [address] Nov, Onychomycosis B35.1 ; Hammer toe M20.40 ; [place] or callus L84 and DM neuro manif type II E11.49 [facility] [address] [place] [id number] [address] [place] [address] 15 Nov, 2015 Chronic pain G89.29 ; Leukoc ytosis D72.829 and Diabetes E11.9 [facility] [address] [address] Nov, [facility] [address] [address] Oct, Bronchitis J40 [facility] [address] [address] Oct, [facility] [address] [address] Oct, [place] [address] [address] Oct, Mastoiditis, unspecified lat erality H70.90 and Type 2 diabetes mellitus with complication E11.8 [place] [address] [address] Sep, [place] [address] [address] Sep, Dysuria R30.0 ; Cough R05 ; Benign prostatic hyperplasia with lower urinary tract symptoms, unspecified morphology N40.1 ; Hypokalemia E87.6 and Eustachian tube dysfunction, unspecified laterality H69.80 [place] [address] [address] Sep, Moderate mixed bipolar I dis order F31.62 [place] [address] [address] Sep, Hypokalemia E87.6 [place] [address] [address] Sep, [place] [address] [address] Sep, Upper respiratory tract infe ction, unspecified type J06.9 [place] [address] [address] Aug, [place] [address] [id number] [address] [place] [address] Aug, Dysuria R30.0 [facility] [address] [id number] [address] [place] [id number] Aug, [facility] [address] [id number] [address] [place] [address] Jul, [facility] [address] [id number] [address] [place] [address] Jul, [facility] [address] [id number] [address] [place] [address] Jul, [facility] [address] [id number] [address] [place] [address] Jul, [facility] [address] [id number] [address] [place] [address] Jun, [facility] [address] [id number] [address] [place] [address] Jun, [facility] [address] [id number] [address] [place] [id number] Jun, [facility] [address] [id number] [address] [place] [address] May, [facility] [address] [id number] [address] [place] [address] May, Bipolar I disorder, most rec ent episode (or current) mixed, moderate 296.62 [facility] [address] [id number] [address] [place] [address] 16 May, 2015 [facility] [address] [id number] [address] [place] [address] May, Bipolar I disorder, most rec ent episode (or current) mixed, moderate 296.62 and Major depressive disorder, recurrent episode, severe, specified as with psychotic behavior 296.34 [facility] [address] [id number] [address] [place] [address] May, Bipolar I disorder, most rec ent episode (or current) mixed, moderate 296.62 [facility] [address] [id number] [address] [place] [address] May, [facility] [address] [facility] [id number] [address] [place] [address] Apr, [facility] [address] [facility] [id number] [address] [place] [address] Apr, [facility] [address] [facility] [id number] [address] [place] [address] Apr, Unspecified disorder of kidn ey and ureter 593.9 and Diabetes mellitus type 2, uncontrolled 250.02 [facility] [address] [facility] [id number] [address] [place] [address] Apr, [facility] [address] [facility] [id number] [address] [place] [address] Apr, [facility] [address] [place] [id number] [address] [place] [address] Apr, [facility] [address] [id number] [address] [place] [address] Apr, [facility] [address] [facility] [id number] [address] [place] [address] Apr, Diabetes mellitus type II, u ncontrolled 250.02 [facility] [address] [facility] [id number] [address] [place] [address] Apr, [facility] [address] [id number] [address] [place] [address] Mar, [facility] [address] [facility] [id number] [address] [place] [address] Mar, [facility] [address] [facility] [id number] [address] [place] [address] Mar, [facility] [address] [facility] [id number] [address] [place] [address] Mar, Major depressive disorder, r ecurrent episode, severe, specified as with psychotic behavior 296.34 and Bipolar I disorder, most recent episode (or current) mixed, moderate 296.62 [facility] [address] [address] Mar, Diabetes 250.00 ; Anuria 788 .5 ; Nausea and vomiting 787.01 and Diarrhea 787.91 [facility] [address] [address] Mar, Diabetes 250.00 [facility] [address] [address] Mar, [facility] [address] [address] Mar, Diabetes 250.00 [facility] [address] [address] Mar, [facility] [address] [address] Mar, [facility] [address] [address] Mar, [facility] [address] [address] Mar, [facility] [address] [address] Mar, Bipolar I disorder, most rec ent episode (or current) mixed, moderate 296.62 and Major depressive disorder, recurrent episode, severe, specified as with psychotic behavior 296.34 [facility] [address] [address] Mar, Magnesium deficiency 275.2 ; Hypokalemia 276.8 ; Nausea & vomiting 787.01 and Diabetes mellitus type 2, uncontrolled 250.02 [facility] [address] [place] [id number] [place] [address] Feb, [facility] [address] [address] Feb, Bipolar I disorder, most rec ent episode (or current) mixed, moderate 296.62 [place] [address] [address] Feb, Nausea and vomiting 787.01 ; Left elbow pain 719.42 ; Anuria 788.5 and Diabetes 250.00 [place] [address] [address] Feb, [place] [address] [address] Feb, Hypopotassemia 276.8 and Hyp okalemia 276.8 [place] [address] [address] Feb, Hypopotassemia 276.8 and Hyp okalemia 276.8 [place] [address] [address] Feb, Seborrheic keratoses 702.19 [place] [address] [address] Feb, Hypopotassemia 276.8 and Low magnesium levels 275.2 [place] [address] [address] January, [place] [address] [address] January, [facility] [address] [address] January, [place] [address] [address] January, Scalp lesion 709.9 [place] [address] [address] January, [facility] [address] [address] 30 Dec, 2014 Tear of medial cartilage or meniscus of knee, current 836.0 and 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 [facility] [address] [id number] [address] [place] [address] Dec, [facility] [place] [address] [id number] [address] [place] [address] Dec, [facility] [place] [address] [id number] [address] [place] [address] Dec, Squamous cell carcinoma, 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 [facility] [address] [id number] [address] [place] [id number] 14 Dec, 2014 [facility] [place] [address] [id number] [address] [place] [address] Dec, [facility] [place] [address] [id number] [address] [place] [id number] Nov, [facility] [place] [address] [id number] [address] [place] [address] Nov, [facility] [place] [address] [id number] [address] [place] [id number] Nov, [facility] [place] [address] [id number] [address] [place] [id number] Nov, [facility] [address] [id number] [address] [place] [address] Nov, [facility] [place] [address] [id number] [address] [place] [address] Nov, [facility] [place] [address] [id number] [address] [place] [address] Nov, [facility] [place] [address] [id number] [address] [place] [id number] Nov, [facility] [place] [address] [id number] [address] [place] [id number] Nov, [facility] [address] [id number] [address] [place] [address], [place] [address] Nov, [facility] [address] [id number] [address] [place] [address], [place] [address] Nov, [facility] [address] [id number] [address] [place] [address], [place] [address] Nov, [facility] [address] [id number] [address] [place] [address], [place] [address] Oct, 2014 [facility] [address] [id number] [address] [place] [address], [place] [address] Oct, 2014 [facility] [address] [id number] [address] [place] [address], [place] [address] Oct, 2014 [facility] [address] [id number] [address] [place] [address], [place] [address] Oct, 2014 [facility] [address] [id number] [address] [place] [id number] Oct, [facility] [address] [id number] [address] [place] [address], [place] [address] Oct, [facility] [address] [id number] [address] [place] [id number] Oct, [facility] [address] [id number] [address] [place] [id number] Oct, [facility] [address] [id number] [address] [place] [id number] Oct, [facility] [address] [id number] [address] [place] [id number] Sep, [facility] [address] [id number] [address] [place] [address] Sep, [facility] [address] [id number] [address] [place] [id number] Sep, [facility] [address] [id number] [address] [place] [id number] Sep, [facility] [address] [id number] [address] [place] [address], [place] [address] Sep, [facility] [address] [id number] [address] [place] [address], [place] [address] Sep, [facility] [address] [id number] [address] [place] [address], [place] [address] Sep, [facility] [address] [id number] [address] [place] [address], [place] [address] Sep, [facility] [address] [id number] [address] [place] [address], [place] [address] Sep, [facility] [address] [id number] [address] [place] [address], [place] [address] Sep, [facility] [address] [id number] [address] [place] [address], [place] [address] Sep, [facility] [address] [id number] [address] [place] [address], [place] [address] Sep, [facility] [address] [id number] [address] [place] [address], [place] [address] Sep, [facility] [address] [id number] [address] [place] [address], [place] [address] Sep, [facility] [address] [id number] [address] [place] [address], [place] [address] Sep, [facility] [address] [id number] [address] [place] [address], [place] [address] Sep, [facility] [address] [id number] [address] [place] [address], [place] [address] Aug, [facility] [address] [id number] [address] [place] [address], [place] [address] Aug, [facility] [address] [id number] [address] [place] [address], [place] [address] Aug, [facility] [address] [id number] [facility] [place] [address] Aug, [facility] [address] [id number] [facility] [place] [address] Aug, [facility] [address] [id number] [facility] [place] [address] Aug, [facility] [address] [id number] [facility] [place] [address] Aug, [facility] [facility] [address] [id number] [facility] [place] [address] Aug, [facility] [address] [id number] [address] [place] [address], [place] [address] Aug, [facility] [address] [id number] [address] [place] [address], [place] [address] Aug, [facility] [address] [id number] [address] [place] [address], [place] [address] Aug, [facility] [address] [place] [id number] Aug, [facility] [address] [id number] [address] [place] [address], [place] [address] Aug, [facility] [place] [address] [id number] [address] [place] [address], [place] [address] Aug, [facility] [address] [id number] [address] [place] [address], [place] [address] Aug, [facility] [address] [id number] [address] [place] [address], [place] [address] Aug, [facility] [address] [id number] [address] [place] [address], [place] [address] Aug, [facility] [address] [id number] [facility] [place] [address] Aug, [facility] [address] [id number] [address] [place] [address], [place] [address] Aug, [facility] [address] [id number] [address] [place] [address], [place] [address] Aug, [facility] [address] [id number] [address] [place] [address], [place] [address] Aug, [facility] [address] [id number] [address] [place] [address], [place] [address] Aug, [facility] [address] [id number] [address] [place] [address], [place] [address] Aug, [facility] [address] [id number] [address] [place] [address], [place] [address] Aug, [facility] [address] [id number] [address] [place] [address], [place] [address] Aug, [facility] [address] [id number] [address] [place] [address], [place] [address] Aug, [facility] [address] [id number] [address] [place] [address], [place] [address] Aug, [facility] [address] [id number] [address] [place] [address], [place] [address] Aug, [facility] [address] [id number] [address] [place] [address], [place] [address] Aug, [facility] [address] [id number] [address] [place] [address], [place] [address] Aug, [facility] [address] [id number] [address] [place] [address], [place] [address] Jul, [facility] [address] [id number] [address] [place] [address], [place] [address] Jul, [facility] [address] [id number] [address] [place] [address], [place] [address] Jul, [facility] [address] [id number] [address] [place] [address], [place] [address] Jul, [facility] [address] [id number] [address] [place] [address] Jul, [facility] [address] [id number] [address] [place] [address], [place] [address] Jul, [facility] [address] [id number] [address] [place] [address] Jul, [facility] [address] [id number] [address] [place] [address], [place] [address] Jul, [facility] [address] [id number] [address] [place] [address] Jul, [facility] [address] [id number] [address] [place] [address], [place] [address] Jul, [facility] [address] [id number] [address] [place] [address], [place] [address] Jun, [facility] [address] [id number] [address] [place] [address] Jun, [facility] [address] [id number] [address] [place] [address] Jun, [facility] [address] [id number] [address] [place] [address] Jun, [facility] [address] [id number] [address] [place] [address] Jun, [facility] [address] [id number] [address] [place] [address] Jun, [facility] [address] [id number] [address] [place] [address] Jun, [facility] [address] [id number] [address] [place] [address] Jun, [facility] [address] [id number] [address] [place] [address] Jun, [facility] [address] [id number] [address] [place] [address] Jun, [facility] [address] [id number] [facility] [place] [address] 29 Sep, 2013 [facility] [address] [id number] [facility] [place] [address] 29 Sep, 2013 [facility] [address] [id number] [facility] [place] [address] 26 Sep, 2013 [facility] [address] [id number] [address] [place] [address], [place] [address] 26 Sep, 2013 [facility] [address] [id number] [address] [place] [address], [place] [address] 17 Sep, 2013 [facility] [address] [id number] [address] [place] [address], [place] [address] 17 Sep, 2013 [facility] [address] [id number] [address] [place] [address], [place] [address] 15 Sep, 2013 [facility] [address] [id number] [address] [place] [address], [place] [address] 15 Sep, 2013 [facility] [address] [id number] [address] [place] [address], [place] [address] 15 Sep, 2013 [facility] [address] [id number] [address] [place] [address], [place] [address] 15 Sep, 2013 [facility] [address] [id number] [address] [place] [address], [place] [address] 10 Sep, 2013 [facility] [address] [id number] [address] [place] [address], [place] [address] 10 Sep, 2013 [facility] [address] [id number] [address] [place] [address], [place] [address] 09 Sep, 2013 [facility] [address] [id number] [address] [place] [address], [place] [address] 09 Sep, 2013 [facility] [address] [id number] [address] [place] [address], [place] [address] 04 Sep, 2013 [facility] [address] [id number] [address] [place] [address], [place] [address] May, [facility] [address] [id number] [facility] [place] [address] Apr, [facility] [address] [id number] [address] [place] [address], [place] [address] Apr, [facility] [address] [id number] [address] [place] [address], [place] [address] Apr, [facility] [address] [id number] [address] [place] [address], [place] [address] Apr, [facility] [address] [id number] [address] [place] [address], [place] [address] Apr, [facility] [address] [id number] [address] [place] [address], [place] [address] Apr, [facility] [address] [id number] [address] [place] [address], [place] [address] Apr, [facility] [address] [id number] [address] [place] [address], [place] [address] Apr, [facility] [address] [id number] [address] [place] [address], [place] [address] Apr, [facility] [address] [id number] [address] [place] [address], [place] [address] Apr, [facility] [address] [id number] [address] [place] [address], [place] [address] Apr, [facility] [address] [id number] [address] [place] [address], [place] [address] Apr, [facility] [address] [id number] [address] [place] [address], [place] [address] Apr, [facility] [address] [id number] [address] [place] [address], [place] [address] Apr, [facility] [address] [id number] [address] [place] [address], [place] [address] Apr, [facility] [address] [id number] [address] [place] [address], [place] [address] Mar, 2013 [facility] [address] [id number] [facility] [place] [address] Mar, 2013 [facility] [address] [id number] [facility] [place] [address] Mar, 2013 [facility] [address] [id number] [address] [place] [address], [place] [address] Mar, 2013 [facility] [address] [id number] [address] [place] [address], [place] [address] Mar, 2013 [facility] [address] [id number] [address] [place] [address], [place] [address] Mar, 2013 [facility] [address] [id number] [address] [place] [address], [place] [address] Mar, 2013 [facility] [address] [id number] [address] [place] [address], [place] [address] Mar, 2013 [facility] [address] [id number] [address] [place] [address], [place] [address] Mar, 2013 [facility] [address] [id number] [address] [place] [address], [place] [address] Mar, 2013 [facility] [address] [id number] [address] [place] [address], [place] [address] Mar, 2013 [facility] [address] [id number] [address] [place] [address], [place] [address] Mar, 2013 [facility] [address] [id number] [address] [place] [address], [place] [address] Mar, 2013 [facility] [address] [id number] [address] [place] [address], [place] [address] Mar, 2013 [facility] [address] [id number] [address] [place] [address], [place] [address] Mar, 2013 [facility] [address] [id number] [address] [place] [address], [place] [address] Mar2013 [facility] [address] [id number] [facility] [place] [address] Mar, [facility] [address] [id number] [facility] [place] [address] Mar, [facility] [address] [id number] [facility] [place] [address] Feb, [facility] [address] [id number] [facility] [place] [address] Feb, [facility] [address] [id number] [facility] [place] [address] Feb, [facility] [address] [id number] [address] [place] [address], [place] [address] Feb, [facility] [address] [id number] [address] [place] [address], [place] [address] Feb, [facility] [address] [id number] [address] [place] [address], [place] [address] Feb, [facility] [address] [id number] [address] [place] [address], [place] [address] Feb, [facility] [address] [id number] [address] [place] [address], [place] [address] Feb, [facility] [address] [id number] [address] [place] [address], [place] [address] Feb, [facility] [address] [id number] [address] [place] [address], [place] [address] Feb, [facility] [address] [id number] [address] [place] [address], [place] [address] Feb, [facility] [address] [id number] [address] [place] [address], [place] [address] Feb, [facility] [address] [id number] [address] [place] [address], [place] [address] Feb, [facility] [address] [id number] [address] [place] [address], [place] [address] Feb, [facility] [address] [id number] [facility] [place] [address] January, [facility] [address] [id number] [address] [place] [address], [place] [address] January, [facility] [address] [id number] [address] [place] [address], [place] [address] January, [facility] [address] [id number] [address] [place] [address], [place] [address] January, [facility] [address] [id number] [address] [place] [address], [place] [address] January, [facility] [address] [id number] [address] [place] [address], [place] [address] January, [facility] [address] [id number] [address] [place] [address], [place] [address] January, [facility] [address] [id number] [address] [place] [address], [place] [address] January, [facility] [address] [id number] [address] [place] [address], [place] [address] January, [facility] [address] [id number] [address] [place] [address], [place] [address] January, [facility] [address] [id number] [address] [place] [address], [place] [address] January, [facility] [address] [id number] [address] [place] [address], [place] [address] January, [facility] [address] [id number] [address] [place] [address], [place] [address] January, [facility] [address] [id number] [address] [place] [address], [place] [address] January, [facility] [address] [id number] [address] [place] [address], [place] [address] Dec, [facility] [address] [id number] [facility] [place] [address] Dec, [facility] [address] [id number] [facility] [place] [address] Dec, [facility] [address] [id number] [address] [place] [address], [place] [address] Dec, [facility] [address] [id number] [address] [place] [address], [place] [address] Dec, [facility] [address] [id number] [address] [place] [address], [place] [address] Dec, [facility] [address] [id number] [address] [place] [address], [place] [address] Dec, [facility] [address] [id number] [address] [place] [address], [place] [address] Dec, [facility] [address] [id number] [address] [place] [address], [place] [address] Dec, [facility] [address] [id number] [address] [place] [address], [place] [address] Dec, [facility] [address] [id number] [address] [place] [address], [place] [address] Nov, [facility] [address] [id number] [address] [place] [address], [place] [address] Nov, [facility] [address] [id number] [address] [place] [address], [place] [address] Nov, [facility] [address] [id number] [address] [place] [address], [place] [address] Nov, [facility] [address] [id number] [address] [place] [address], [place] [address] Nov, [facility] [address] [id number] [address] [place] [address], [place] [address] Nov, [facility] [address] [id number] [address] [place] [address], [place] [address] Nov, [facility] [address] [id number] [facility] [place] [address] Nov, [facility] [address] [id number] [address] [place] [address], [place] [address] Nov, [facility] [address] [id number] [facility] [place] [address] Nov, [facility] [address] [id number] [address] [place] [address], [place] [address] Oct, [facility] [address] [id number] [address] [place] [address], [place] [address] Oct, [facility] [address] [id number] [address] [place] [address], [place] [address] Oct, [facility] [address] [id number] [address] [place] [address], [place] [address] Oct, [facility] [address] [id number] [address] [place] [address], [place] [address] Oct, [facility] [address] [id number] [address] [place] [address], [place] [address] Oct, [facility] [address] [id number] [address] [place] [address], [place] [address] Oct, [facility] [address] [id number] [address] [place] [address], [place] [address] Oct, [facility] [address] [id number] [address] [place] [address], [place] [address] Oct, [facility] [address] [id number] [address] [place] [address], [place] [address] Oct, [facility] [address] [id number] [address] [place] [address], [place] [address] Oct, [facility] [address] [id number] [address] [place] [address], [place] [address] Oct, [facility] [address] [id number] [address] [place] [address], [place] [address] Oct, [facility] [address] [id number] [address] [place] [address], [place] [address] Oct, [facility] [address] [id number] [address] [place] [address], [place] [address] Sep, [facility] [address] [id number] [address] [place] [address], [place] [address] Sep, [facility] [address] [id number] [address] [place] [address], [place] [address] Sep, [facility] [address] [id number] [address] [place] [address], [place] [address] Sep, [facility] [address] [id number] [address] [place] [address], [place] [address] Sep, [facility] [address] [id number] [address] [place] [address], [place] [address] Sep, [facility] [address] [id number] [address] [place] [address], [place] [address] Sep, [facility] [address] [id number] [address] [place] [address], [place] [address] Sep, [facility] [address] [id number] [address] [place] [address], [place] [address] Sep, [facility] [address] [id number] [address] [place] [address], [place] [address] Sep, [facility] [address] [id number] [address] [place] [address], [place] [address] Aug, [facility] [address] [id number] [address] [place] [address], [place] [address] Aug, [facility] [address] [id number] [address] [place] [address], [place] [address] Jul, [facility] [address] [id number] [address] [place] [address] [address] Jul, [facility] [address] [id number] [address] [place] [address], [place] [address] Jul, [facility] [address] [id number] [address] [place] [address], [place] [address] Jul, [facility] [address] [id number] [address] [place] [address], [place] [address] Jul, [facility] [address] [id number] [address] [place] [address], [place] [address] Jul, [facility] [address] [id number] [address] [place] [address], [place] [address] Jul, [facility] [address] [id number] [address] [place] [address], [place] [address] Jul, [facility] [address] [id number] [address] [place] [address], [place] [address] Jul, [facility] [address] [id number] [address] [place] [address], [place] [address] Jul, [facility] [address] [id number] [address] [place] [address], [place] [address] Jul, [facility] [address] [id number] [address] [place] [address], [place] [address] Jul, [facility] [address] [id number] [address] [place] [address] Jul, [facility] [address] [id number] [address] [place] [address] Jul, [facility] [address] [id number] [address] [place] [address], [place] [address] Jul, [facility] [address] [id number] [address] [place] [address] Jul, [facility] [address] [id number] [address] [place] [address] Jul, [facility] [address] [id number] [address] [place] [address], [place] [address] Jul, 2012 [facility] [address] [id number] [address] [place] [address], [place] [address] Jul, 2012 [facility] [address] [id number] [address] [place] [address], [place] [address] Jun, 2012 [facility] [address] [id number] [address] [place] [address], [place] [address] Jun, 2012 [facility] [address] [id number] [address] [place] [address], [place] [address] Jun, 2012 [facility] [address] [id number] [address] [place] [address], [place] [address] Jun, 2012 [facility] [address] [id number] [address] [place] [address], [place] [address] Jun, 2012 [facility] [address] [id number] [address] [place] [address], [place] [address] Jun, 2012 [facility] [address] [id number] [address] [place] [address], [place] [address] Jun, 2012 [facility] [address] [id number] [address] [place] [address], [place] [address] Jun, 2012 [facility] [address] [id number] [address] [place] [address] Jun, [facility] [address] [id number] [address] [place] [address], [place] [address] Jun, 2012 [facility] [address] [id number] [address] [place] [address] Jun, [facility] [address] [id number] [address] [place] [address], [place] [address] May, 2012 [facility] [address] [id number] [address] [place] [address], [place] [address] 25 May, 2012 [facility] [address] [id number] [address] [place] [address] 19 May, 2012 [facility] [address] [id number] [address] [place] [address], [place] [address] 17 May, 2013 [facility] [address] [id number] [address] [place] [address], [place] [address] May, [facility] [address] [id number] [address] [place] [address], [place] [address] May, [facility] [address] [id number] [address] [place] [address], [place] [address] May, [facility] [address] [id number] [address] [place] [address], [place] [address] 05 May, 2013 [facility] [address] [id number] [address] [place] [address], [place] [address] Apr, [facility] [address] [id number] [address] [place] [address], [place] [address] Apr, [facility] [address] [id number] [address] [place] [address], [place] [address] Apr, [facility] [address] [id number] [address] [place] [address], [place] [address] Apr, [facility] [address] [id number] [address] [place] [address], [place] [address] Apr, [facility] [address] [id number] [address] [place] [address], [place] [address] Mar, [facility] [address] [id number] [address] [place] [address], [place] [address] Mar, [facility] [address] [id number] [address] [place] [address], [place] [address] Mar, [facility] [address] [id number] [address] [place] [address], [place] [address] Mar, [facility] [address] [id number] [address] [place] [address], [place] [address] Mar, [facility] [address] [id number] [address] [place] [address], [place] [address] Mar, [facility] [address] [id number] [address] [place] [address], [place] [address] Mar, [facility] [address] [id number] [address] [place] [address], [place] [address] Mar, [facility] [address] [id number] [address] [place] [address], [place] [address] Feb, [facility] [address] [id number] [address] [place] [address], [place] [address] Feb, [facility] [address] [id number] [address] [place] [address], [place] [address] January, [facility] [address] [id number] [address] [place] [address], [place] [address] January, [facility] [address] [id number] [address] [place] [address], [place] [address] Dec, [facility] [address] [id number] [address] [place] [address], [place] [address] Dec, [facility] [address] [id number] [address] [place] [address], [place] [address] Nov, [facility] [address] [id number] [address] [place] [address], [place] [address] Nov, [facility] [address] [id number] [address] [place] [address], [place] [address] Nov, [facility] [address] [id number] [address] [place] [address], [place] [address] Nov, [facility] [address] [id number] [address] [place] [address], [place] [address] Oct, [facility] [address] [id number] [address] [place] [address], [place] [address] Oct, [facility] [address] [id number] [address] [place] [address], [place] [address] Oct, [facility] [address] [id number] [address] [place] [address], [place] [address] 26 Oct, 2012 [facility] [address] [id number] [address] [place] [address], [place] [address] 16 Oct, 2012 [facility] [address] [id number] [address] [place] [address], [place] [address] 14 Oct, 2012 [facility] [address] [id number] [address] [place] [address], [place] [address] 08 Oct, 2012 [facility] [address] [id number] [address] [place] [address], [place] [address] 07 Oct, 2012 [facility] [address] [id number] [address] [place] [address], [place] [address] 03 Oct, 2012 [facility] [address] [id number] [address] [place] [address], [place] [address] 30 Sep, 2012 [facility] [address] [id number] [address] [place] [address], [place] [address] Sep, [facility] [address] [id number] [address] [place] [address], [place] [address] Sep, [facility] [address] [id number] [address] [place] [address], [place] [address] Sep, [facility] [address] [id number] [address] [place] [address], [place] [address] 17 Sep, 2012 [facility] [address] [id number] [address] [place] [address], [place] [address] Sep, [facility] [address] [id number] [address] [place] [address], [place] [address] Sep, [facility] [address] [id number] [address] [place] [address], [place] [address] 08 Sep, 2012 [facility] [address] [id number] [address] [place] [address], [place] [address] Aug, [facility] [address] [id number] [address] [place] [address], [place] [address] Aug, [facility] [address] [id number] [address] [place] [address], [place] [address] Aug, [facility] [address] [id number] [address] [place] [address], [place] [address] Aug, [facility] [address] [id number] [address] [place] [address], [place] [address] Aug, [facility] [address] [id number] [address] [place] [address], [place] [address] Aug, [facility] [address] [id number] [address] [place] [address], [place] [address] Aug, [facility] [address] [id number] [address] [place] [address], [place] [address] Aug, [facility] [address] [id number] [address] [place] [address], [place] [address] Jul, [facility] [address] [id number] [address] [place] [address], [place] [address] Jul, [facility] [address] [id number] [address] [place] [address], [place] [address] Jul, [facility] [address] [id number] [address] [place] [address], [place] [address] Jul, [facility] [address] [id number] [address] [place] [address], [place] [address] Jul, [facility] [address] [id number] [address] [place] [address], [place] [address] Jul, [facility] [address] [id number] [address] [place] [address], [place] [address] Jun, [facility] [address] [id number] [address] [place] [address], [place] [address] Jun, [facility] [address] [id number] [address] [place] [address], [place] [address] Jun, [facility] [address] [id number] [address] [place] [address], [place] [address] 23 Jun, 2012 [facility] [address] [id number] [address] [place] [address], [place] [address] Jun, [facility] [address] [id number] [address] [place] [address], [place] [address] Jun, [facility] [address] [id number] [address] [place] [address], [place] [address] Jun, [facility] [address] [id number] [address] [place] [address], [place] [address] Jun, [facility] [address] [id number] [address] [place] [address], [place] [address] Jun, [facility] [address] [id number] [address] [place] [address], [place] [address] 26 May, 2012 [facility] [address] [id number] [address] [place] [address], [place] [address] 24 May, 2012 [facility] [address] [id number] [address] [place] [address], [place] [address] 18 May, 2012 [facility] [address] [id number] [address] [place] [address], [place] [address] 30 Apr, 2012 [facility] [address] [id number] [address] [place] [address], [place] [address] 29 Apr, 2012 [facility] [address] [id number] [address] [place] [address], [place] [address] Apr, [facility] [address] [id number] [address] [place] [address], [place] [address] 14 Apr, 2012 [facility] [address] [id number] [address] [place] [address], [place] [address] Apr, [facility] [address] [id number] [address] [place] [address], [place] [address] Apr, [facility] [address] [id number] [address] [place] [address], [place] [address] Mar, [facility] [address] [id number] [address] [place] [address], [place] [address] Mar, [facility] [address] [id number] [address] [place] [address], [place] [address] Mar, [facility] [address] [id number] [address] [place] [address], [place] [address] Mar, [facility] [address] [id number] [address] [place] [address], [place] [address] Feb, [facility] [address] [id number] [address] [place] [address], [place] [address] Feb, [facility] [address] [id number] [address] [place] [address], [place] [address] Feb, [facility] [address] [id number] [address] [place] [address], [place] [address] Feb, [facility] [address] [id number] [address] [place] [address], [place] [address] Feb, [facility] [address] [id number] [address] [place] [address], [place] [address] January, [facility] [address] [id number] [address] [place] [address], [place] [address] January, [facility] [address] [id number] [address] [place] [address], [place] [address] January, [facility] [address] [id number] [address] [place] [address], [place] [address] January, [facility] [address] [id number] [address] [place] [address], [place] [address] January, [facility] [address] [id number] [address] [place] [address], [place] [address] January, [facility] [address] [id number] [address] [place] [address], [place] [address] Dec, [facility] [address] [id number] [address] [place] [address], [place] [address] 24 Dec, 2011 [facility] [address] [id number] [address] [place] [address], [place] [address] 17 Dec, 2011 [facility] [address] [id number] [address] [place] [address], [place] [address] 09 Dec, 2011 [facility] [address] [id number] [address] [place] [address], [place] [address] 06 Dec, 2011 [facility] [address] [id number] [address] [place] [address], [place] [address] 27 Nov, 2011 [facility] [address] [id number] [address] [place] [address], [place] [address] 14 Nov, 2011 [facility] [address] [id number] [address] [place] [address], [place] [address] 12 Nov, 2011 [facility] [address] [id number] [address] [place] [address], [place] [address] 07 Nov, 2011 [facility] [address] [id number] [address] [place] [address], [place] [address] 29 Oct, 2011 [facility] [address] [id number] [address] [place] [address], [place] [address] 28 Oct, 2011 [facility] [address] [id number] [address] [place] [address], [place] [address] 24 Oct, 2011 [facility] [address] [id number] [address] [place] [address], [place] [address] 13 Oct, 2011 [facility] [address] [id number] [address] [place] [address], [place] [address] 08 Oct, 2011 [facility] [address] [id number] [address] [place] [address], [place] [address] 31 Sep, 2011 [facility] [address] [id number] [address] [place] [address], [place] [address] 30 Sep, 2011 [facility] [address] [id number] [address] [place] [address], [place] [address] Sep, [facility] [address] [id number] [address] [place] [address], [place] [address] Sep, [facility] [address] [id number] [address] [place] [address], [place] [address] Sep, [facility] [address] [id number] [address] [place] [address], [place] [address] Sep, [facility] [address] [id number] [address] [place] [address], [place] [address] Aug, [facility] [address] [id number] [address] [place] [address], [place] [address] Aug, [facility] [address] [id number] [address] [place] [address], [place] [address] Aug, [facility] [address] [id number] [address] [place] [address], [place] [address] Jul, [facility] [address] [id number] [address] [place] [address], [place] [address] Jul, [facility] [address] [id number] [address] [place] [address], [place] [address] Jul, [facility] [address] [id number] [address] [place] [address] Jul, [facility] [address] [id number] [address] [place] [address] Jun, [facility] [address] [id number] [address] [place] [address] Jun, [facility] [address] [id number] [address] [place] [address], [place] [address] 18 Jun, 2011 [facility] [address] [id number] [address] [place] [address], [place] [address] Jun, [facility] [address] [id number] [address] [place] [address] Jun, [facility] [address] [id number] [address] [place] [address] 10 Jun, 2011 [facility] [address] [id number] [address] [place] [address], [place] [address] 11 Mar, 2011 [facility] [address] [id number] [address] [place] [address], [place] [address] 18 Dec, 2010 [facility] [address] [id number] [address] [place] [address], [place] [address] 11 Dec, 2010 [facility] [address] [id number] [address] [place] [address], [place] [address] 18 Nov, 2010 [facility] [address] [id number] [address] [place] [address], [place] [address] 16 Nov, 2010 [facility] [address] [id number] [address] [place] [address], [place] [address] 10 Sep, 2010 [facility] [address] [id number] [address] [place] [address], [place] [address] 31 Aug, 2010 [facility] [address] [id number] [address] [place] [address], [place] [address] 29 Aug, 2010 [facility] [address] [id number] [address] [place] [address], [place] [address] 29 Aug, 2010 [facility] [address] [id number] [address] [place] [address], [place] [address] 29 Aug, 2010 [facility] [address] [id number] [address] [place] [address], [place] [address] 27 Aug, 2010 [facility] [address] [id number] [address] [place] [address], [place] [address] 14 Aug, 2010 [facility] [address] [id number] [address] [place] [address], [place] [address] 08 Aug, 2010 [facility] [address] [id number] [address] [place] [address], [place] [address] 08 Aug, 2010 [facility] [address] [id number] [address] [place] [address], [place] [address] 07 Aug, 2010 [facility] [address] [id number] [address] [place] [address], [place] [address] Aug, [facility] [address] [id number] [address] [place] [address], [place] [address] Aug, [facility] [address] [id number] [address] [place] [address], [place] [address] Aug, [facility] [address] [id number] [address] [place] [address], [place] [address] Jul, [facility] [address] [id number] [address] [place] [address], [place] [address] Jul, [facility] [address] [id number] [address] [place] [address], [place] [address] Jul, [facility] [address] [id number] [address] [place] [address], [place] [address] Jul, [facility] [address] [id number] [address] [place] [address], [place] [address] Jul, [facility] [address] [id number] [address] [place] [address], [place] [address] Jul, [facility] [address] [id number] [address] [place] [address], [place] [address] Jun, [facility] [address] [id number] [address] [place] [address], [place] [address] Jun, [facility] [address] [id number] [address] [place] [address], [place] [address] Jun, [facility] [address] [id number] [address] [place] [address], [place] [address] Jun, [facility] [address] [id number] [address] [place] [address], [place] [address] Apr, [facility] [address] [id number] [address] [place] [address], [place] [address] Mar, [facility] [address] [id number] [address] [place] [address], [place] [address] Feb, [facility] [address] [id number] [address] [place] [address] January, [facility] [address] [id number] [address] [place] [address], [place] [address] 15 Dec, 2009 [facility] [address] [id number] [address] [place] [address] Nov, [facility] [address] [id number] [address] [place] [address], [place] [address] Aug, [facility] [address] [id number] [address] [place] [address], [place] [address] Aug, [facility] [address] [id number] [address] [place] [address] Aug, [facility] [address] [id number] [address] [place] [address], [place] [address] Jul, [facility] [address] [id number] [address] [place] [address] Jul, [facility] [address] [id number] [address] [place] [address] Jul, [facility] [address] [id number] [address] [place] [address] 30 Jun, 2009 [facility] [address] [id number] [address] [place] [address] 29 Jun, 2009 [facility] [address] [id number] [address] [place] [address] Jun, [facility] [address] [id number] [address] [place] [address] Jun, [facility] [address] [id number] [address] [place] [address] Jun, [facility] [address] [id number] [address] [place] [address] Jun, [facility] [address] [id number] [address] [place] [address] Apr, [facility] [address] [facility] [id number] [address] [place] [address] Apr, [facility] [address] [facility] [id number] [address] [place] [id number] Feb, [facility] [address] [facility] [id number] [address] [place] [id number] January, [facility] [address] [facility] [id number] [address] [place] [id number] Dec, IMMUNIZATIONS No Known Immunizations SOCIAL HISTORY [...] Medical History skin cancer-basal cell R zoroastrian (removed ) Medical History Arthritis Medical History [...] colonoscopy 2009 ([facility]), 2013 ([facility] ) Surgical History heart cath: CAD w/ [...] urinate 09/16/15 Hospitalization History [facility] e[facility] 1999' Hospitalization History hyperkalemia 10/2017 Hospitalization History fluid in lung
--- OUTSIDE RECORDS SUMMARY | 2020-03-01 17:27 | XMS REPORT ---
Author Author Michele WASHBURN Organization [facility] [place] Address [address] [place] [address] Care Team Providers Care Rn Progressive Care Name Role Phone NOEMI WASHBURN Unavailable PROBLEMS Type Condition ICD9-CM Code QGJ10-XY Code Onset Dates Condition S tatus SNOMED Code Problem Cough R05 Active 65888410 Problem Benign prostatic hyperplasia with lower urinary tract symptoms, unspecified morphology N40.1 Active 88940 6007 Problem Eustachian tube dysfunction, unspecified laterality H69.80 Active 70693913 Problem Chronic pain G89.29 Active 7288558 1 Problem DM neuro manif type II E11.49 Active 44601368 Problem Diabetes E11.9 Active 70496312 Problem Leukocytosis D72.829 Active 6745932 06 Problem Falling R29.6 Active 545616256 Problem Pressure ulcer of other site, stage 3 L89.893 Active 188511552 Problem 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 Active 241540372 Problem Eye exam abnormal R93.8 Active 16 6784062 Problem Dysuria R30.0 Active 88466823 Problem Hypokalemia E87.6 Active 25219074 Problem Morbid obesity E66.01 Active 90723 6002 Problem Anxiety F41.9 Active 41124858 Problem Diabetic polyneuropathy associated with type 2 d iabetes mellitus E11.42 Active 58204375 Problem Essential hypertension I10 Active 16308119 Problem Bilateral primary osteoarthritis of knee M17.0 Active 029760575 Problem Polyneuropathy associated with underlying disease G63 Active 869884725 Problem Anemia of chronic illness D63.8 Acti ve 646748849 Problem Lymphocytosis D72.820 Active 197460 09 Problem Retinal edema H35.81 Active 512296 6 Problem Chronic lymphocytic leukemia C91.10 A ctive 86156512 Problem Bipolar disorder, in partial remission, most rec ent episode depressed F31.75 Active 63895957 Problem Pure hypercholesterolemia E78.00 Acti ve 074831212 Problem Primary osteoarthritis of right knee M17.11 Active 791563790666556 Problem Bipolar disorder F31.9 Active 137 88070 Problem Bipolar I disorder, most recent episode (or curr ent) mixed, moderate F31.62 Active 20126706 Problem Chronic diastolic (congestive) heart failure I50.3 2 Active 079400980 Problem Reactive airway disease J45.909 Active 745914589021 Problem Insomnia, unspecified type G47.00 Act sharon 514312726 Problem Other chronic pain G89.29 Active 8 5461986 Problem Other iron deficiency anemia D50.8 A ctive 93273948 Problem Mild cognitive impairment G31.84 Acti ve 265812447 Problem Skin cancer C44.90 Active 13188226 7 ALLERGIES No Information ENCOUNTERS Encounter Location Date Diagnosis [place] [address] [address] [facility] [id number] [address] [place] [phone] Mar, [place] [address] [address] [place] [id number] [address] [place] [phone] Mar, [place] [address] [address] [facility] [id number] [address] [place] [phone] Feb, Bipolar disorder F31.9 [place] [address] [address] [facility] [id number] [address] [place] [id number] Feb, Cellulitis of right upper ex tremity L03.113 and Skin abrasion T14.8XXA [place] [address] [address] [facility] [id number] [address] [place] [phone] Feb, Bipolar disorder, in partial remission, most recent episode depressed F31.75 and Mild cognitive impairment G31.84 [place] [address] [facility] [id number] [address] [place] [address] Feb, Chronic pain G89.29 [place] [address] [address] [facility] [id number] [address] [place] [address] Feb, Bipolar disorder, in partial remission, most recent episode depressed F31.75 and Mild cognitive impairment G31.84 [place] [address] [address] [facility] [id number] [address] [place] [address] January, Bipolar disorder, in partial remission, most recent episode depressed F31.75 and Mild cognitive impairment G31.84 [facility] [place] [address] [id number] [address] [place] [phone] January, Chronic pain G89.29 and Bipo lar disorder F31.9 [facility] [place] [address] [id number] [address] [place] [phone] January, Bipolar disorder, in partial remission, most recent episode depressed F31.75 and Mild cognitive impairment G31.84 [facility] [place] [address] [id number] [address] [place] [phone] Dec, [facility] [place] [address] [id number] [address] [place] [id number] Dec, Chronic pain G89.29 and Bipo lar disorder F31.9 [facility] [place] [address] [id number] [address] [place] [phone] Dec, Edema of both lower extremit ies R60.0 [facility] [place] [address] [id number] [address] [place] [id number] Dec, Bipolar disorder F31.9 [facility] [place] [address] [id number] [address] [place] [phone] Dec, Bipolar disorder, in partial remission, most recent episode depressed F31.75 and Mild cognitive impairment G31.84 [facility] [place] [address] [id number] [address] [place] [id number] Nov, [facility] [place] [address] [id number] [address] [place] [phone] Nov, Chronic pain G89.29 [facility] [place] [address] [id number] [address] [place] [id number] Nov, Bipolar disorder, in partial remission, most recent episode depressed F31.75 and Mild cognitive impairment G31.84 [facility] [place] [address] [id number] [address] [place] [phone] Nov, Bipolar disorder F31.9 [place] [address] [address] [place] [id number] [address] [place] [id number] 04 Nov, 2018 Encounter for Medicare hilary [...] unspecified morphology N40.1 and Essential hypertension I10 [address] [id number] 21 Oct, 2018 Chronic pain G89.[address] [id number] 18 Oct, 2018 Diabetes E11.9 [place] [address] [address] [place] [id number] [address] [place] [phone] Oct, Bipolar I disorder, most rec ent episode (or current) mixed, moderate F31.62 and Mild cognitive impairment G31.84 [place] [id number] [address] [place] [address] Oct, Bipolar I disorder, most rec ent episode (or current) mixed, moderate F31.62 and Mild cognitive impairment G31.84 [place] [address] [address] [place] [id number] [address] [place] [address] Sep, Bipolar I disorder, most rec ent episode (or current) mixed, moderate F31.62 and Mild cognitive impairment G31.84 [place] [id number] [address] [place] [address] Sep, [place] [id number] [address] [place] [address] Sep, Diabetes E11.9 ; Hypoxia R09 .02 ; Hyperglycemia R73.9 ; Therapeutic drug monitoring Z51.81 ; BMI 50.0-59.9, adult Z68.43 and Skin cancer C44.90 [place] [address] [address] [facility] [id number] [address] [place] [phone] Sep, Chronic pain G89.29 [facility] [place] [address] [facility] [id number] [address] [place] [phone] Sep, Bipolar I disorder, most rec ent episode (or current) mixed, moderate F31.62 [facility] [place] [address] [facility] [id number] [address] [place] [phone] Sep, [place] [address] [address] [facility] [id number] [address] [place] [phone] Sep, [facility] [place] [address] [facility] [id number] [address] [place] [address] Aug, Chronic pain G89.29 [place] [address] [address] [facility] [id number] [address] [place] [phone] Aug, Bipolar I disorder, most rec ent episode (or current) mixed, moderate F31.62 [place] [address] [address] [facility] [id number] [address] [place] [phone] Aug, Bipolar I disorder, most rec ent episode (or current) mixed, moderate F31.62 and Mild cognitive impairment G31.84 [place] [address] [address] [facility] [id number] [address] [place] [address] Jul, [place] [address] [address] [facility] [id number] [address] [place] [address] Jul, Chronic pain G89.29 [place] [address] [address] [facility] [id number] [address] [place] [phone] Jul, Bipolar I disorder, most rec ent episode (or current) mixed, moderate F31.62 and Mild cognitive impairment G31.84 [place] [address] [facility] [id number] [address] [place] [phone] Jul, Bipolar I disorder, most rec ent episode (or current) mixed, moderate F31.62 and MCI (mild cognitive impairment) G31.84 [facility] [place] [address] [id number] [address] [place] [phone] Jul, [facility] [place] [address] [id number] [address] [place] [phone] Jul, [facility] [place] [address] [facility] [id number] [address] [place] [phone] Jul, Bipolar I disorder, most rec ent episode (or current) mixed, moderate F31.62 [facility] [place] [address] [id number] [address] [place] [phone] Jul, Chronic pain G89.29 [facility] [place] [address] [facility] [id number] [address] [place] [phone] Jun, Bipolar I disorder, most rec ent episode (or current) mixed, moderate F31.62 [place] [address] [address] [facility] [id number] [address] [place] [phone] Jun, Pre-procedure lab exam Z01.8 12 [place] [address] [address] [facility] [id number] [address] [place] [phone] Jun, [facility] [address] [id number] [place] [id number] Jun, [facility] [place] [address] [facility] [id number] [address] [place] [phone] Jun, [facility] [place] [address] [facility] [id number] [address] [place] [address] Jun, Forgetfulness R68.89 ; Pre-s yncope R55 ; Localized edema R60.0 ; Other iron deficiency anemia D50.8 and BMI 50.0-59.9, adult Z68.43 [facility] [place] [address] [id number] [address] [place] [phone] Jun, Chronic pain G89.29 [facility] [place] [address] [facility] [id number] [address] [place] [address] Jun, Chronic pain G89.29 [facility] [place] [address] [facility] [id number] [address] [place] [phone] Jun, Bipolar I disorder, most rec ent episode (or current) mixed, moderate F31.62 [facility] [place] [address] [facility] [id number] [address] [place] [address] May, Chronic pain G89.29 [facility] [place] [address] [facility] [id number] [address] [place] [phone] Apr, [facility] [place] [address] [facility] [id number] [address] [place] [phone] Apr, Chronic pain G89.29 [place] [address] [address] [facility] [id number] [address] [place] [phone] Apr, Primary osteoarthritis of ri ght knee M17.11 [place] [address] [address] [facility] [id number] [address] [place] [address] Mar, [place] [address] [address] [facility] [id number] [address] [place] [phone] Mar, BMI 50.0-59.9, adult Z68.43 and Bipolar disorder, in partial remission, most recent episode depressed F31.75 [place] [address] [address] [place] [id number] [address] [place] [address] Mar, Diabetes E11.9 ; Pure hyperc holesterolemia E78.00 ; Essential hypertension I10 ; Nausea with vomiting, unspecified R11.2 and Headache, unspecified headache type R51 [place] [address] [facility] [id number] [address] [place] [phone] Mar, Bipolar I disorder, most rec ent episode (or current) mixed, moderate F31.62 [place] [address] [address] [facility] [id number] [address] [place] [phone] Mar, Bipolar I disorder, most rec ent episode (or current) mixed, moderate F31.62 [place] [address] [address] [place] [id number] [address] [place] [id number] 13 Mar, 2018 Chronic pain G89.29 [facility] [place] [address] [id number] [address] [place] [address] Mar, Bipolar I disorder, most rec ent episode (or current) mixed, moderate F31.62 [facility] [place] [address] [facility] [id number] [address] [place] [phone] Feb, Bipolar I disorder, most rec ent episode (or current) mixed, moderate F31.62 [facility] [place] [address] [facility] [id number] [address] [place] [id number] 14 Feb, 2018 Chronic pain G89.29 [facility] [place] [address] [facility] [id number] [address] [place] [phone] Feb, Decubitus ulcer of right josselin t, stage 3 L89.893 and BMI 50.0-59.9, adult Z68.43 [facility] [place] [address] [place] [id number] [address] [place] [phone] Feb, Bipolar I disorder, most rec ent episode (or current) mixed, moderate F31.62 [facility] [place] [address] [facility] [id number] [address] [place] [id number] Feb, [facility] [place] [address] [facility] [id number] [address] [place] [id number] January, [facility] [place] [address] [facility] [id number] [address] [place] [phone] January, Chronic pain G89.29 [facility] [place] [address] [facility] [id number] [address] [place] [address] January, Bipolar I disorder, most rec ent episode (or current) mixed, moderate F31.62 [facility] [place] [address] [facility] [id number] [address] [place] [address] January, Bipolar I disorder, most rec ent episode (or current) mixed, moderate F31.62 [facility] [place] [address] [facility] [id number] [address] [place] [phone] Dec, Bipolar I disorder, most rec ent episode (or current) mixed, moderate F31.62 and BMI 50.0-59.9, adult Z68.43 [place] [address] [address] [place] [id number] [address] [place] [address] Dec, Bipolar I disorder, most rec ent episode (or current) mixed, moderate F31.62 [place] [address] [place] [id number] [place] [address] Dec, Chronic pain G89.29 [place] [address] [place] [id number] [place] [address] Dec, DM neuro manif type II E11.4 9 ; Right flank pain R10.9 ; 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 ; Encounter for medication monitoring Z51.81 and BMI 50.0-59.9, adult Z68.43 [place] [address] [address] Dec, Bipolar I disorder, most rec ent episode (or current) mixed, moderate F31.62 [place] [address] [address] Nov, Bipolar I disorder, most rec ent episode (or current) mixed, moderate F31.62 [place] [address] [address] [place] [id number] [address] [place] [address] Nov, Chronic pain G89.29 [place] [address] [address] [place] [id number] [address] [place] [address] Nov, Bipolar I disorder, most rec ent episode (or current) mixed, moderate F31.62 [place] [address] [address] [place] [id number] [address] [place] [address] Nov, Hypokalemia E87.6 [place] [address] [address] [place] [id number] [address] [place] [phone] Nov, Bipolar I disorder, most rec ent episode (or current) mixed, moderate F31.62 [facility] [place] [address] [facility] [id number] [address] [place] [address] Oct, Chronic pain G89.29 [facility] [place] [address] [place] [id number] [address] [place] [address] Oct, BMI 50.0-59.9, adult Z68.43 and Bipolar I disorder, most recent episode (or current) mixed, moderate F31.62 [facility] [place] [address] [place] [id number] [place] [address] Oct, Bipolar I disorder, most rec ent episode (or current) mixed, moderate F31.62 [place] [address] [place] [id number] [place] [address] Oct, [place] [address] [address] Oct, Hypokalemia E87.6 [place] [address] [place] [id number] [place] [id number] Oct, DM neuro manif type II E11.4 9 [place] [address] [place] [id number] [place] [address] Oct, Bipolar I disorder, most rec ent episode (or current) mixed, moderate F31.62 [place] [address] [place] [id number] [address] [place] [address] Oct, Bipolar I disorder, most rec ent episode (or current) mixed, moderate F31.62 [place] [address] [place] [id number] [address] [place] [address] 14 Oct, 2017 Hyperkalemia E87.5 ; Falling R29.6 ; BMI 50.0-59.9, adult Z68.43 and Acute left ankle pain M25.572 [place] [address] [address] [place] [id number] [address] [place] [address] Oct, DM neuro manif type II E11.4 9 [place] [address] [place] [id number] [address] [place] [address] Oct, [place] [address] [address] Sep, Chronic pain G89.29 [facility] [place] [address] [place] [id number] [place] [address] Sep, [place] [address] [address] Sep, Bilateral primary osteoarthr itis of knee M17.[address] [address] Sep, Generalized edema R60.1 [place] [address] [place] [id number] [place] [address] Sep, Bipolar I disorder, most rec ent episode (or current) mixed, moderate F31.62 [place] [address] [address] Sep, Hypoxia R09.02 ; Other hyper volemia E87.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 ; Anemia of chronic illness D63.8 and BMI 50.0- 59.9, adult Z68.43 [place] [address] [address] Sep, [place] [address] [address] Sep, Bipolar I disorder, most rec ent episode (or current) mixed, moderate F31.62 [place] [address] [place] [id number] [place] [address] Aug, Chronic pain G89.29 [place] [address] [place] [id number] [address] [place] [phone] Aug, Generalized edema R60.1 [facility] [place] [address] [facility] [id number] [address] [place] [address] 18 Aug, 2017 [place] [address] [facility] [id number] [address] [place] [phone] 18 Aug, 2017 [facility] [place] [address] [facility] [id number] [address] [place] [id number] 14 Aug, 2017 Bipolar I disorder, most rec ent episode (or current) mixed, moderate F31.62 [place] [address] [facility] [id number] [address] [place] [address] Aug, Bipolar I disorder, most rec ent episode (or current) mixed, moderate F31.62 [place] [address] [facility] [id number] [address] [place] [id number] 04 Aug, 2017 Chronic pain G89.29 [place] [address] [place] [id number] [address] [place] [address] Jul, Bipolar I disorder, most rec ent episode (or current) mixed, moderate F31.62 [place] [address] [place] [id number] [address] [place] [id number] Jul, Bipolar I disorder, most rec ent episode (or current) mixed, moderate F31.62 and BMI 60.0-69.9, adult Z68.44 [place] [address] [place] [id number] [address] [place] [id number] 16 Jul, 2017 Bipolar I disorder, most rec ent episode (or current) mixed, moderate F31.62 [place] [address] [facility] [id number] [address] [place] [id number] 06 Jul, 2017 Chronic pain G89.29 [place] [address] [facility] [id number] [address] [place] [id number] 02 Jul, 2017 Bipolar I disorder, most rec ent episode (or current) mixed, moderate F31.62 [place] [address] [facility] [id number] [address] [place] [phone] Jun, Polyneuropathy associated wi th underlying disease G63 and Diabetes E11.9 [facility] [place] [address] [id number] [address] [place] [phone] 16 Jun, 2017 Bipolar I disorder, most rec ent episode (or current) mixed, moderate F31.62 [facility] [place] [address] [id number] [address] [place] [phone] 09 Jun, 2017 Chronic pain G89.29 [facility] [place] [address] [id number] [address] [place] [phone] May, Bipolar I disorder, most rec ent episode (or current) mixed, moderate F31.62 [place] [id number] [id number] [address] [place] [phone] May, Bipolar I disorder, most rec ent episode (or current) mixed, moderate F31.62 [facility], [place] [address] [facility] [id number] [address] [place] [id number] May, Diabetic polyneuropathy asso ciated with type 2 diabetes mellitus E11.42 [facility], [place] [address] [id number] [address] [place] [phone] 18 May, 2017 Bipolar I disorder, most rec ent episode (or current) mixed, moderate F31.62 [facility], [place] [address] [facility] [id number] [address] [place] [phone] 13 May, 2017 Bipolar I disorder, most rec ent episode (or current) mixed, moderate F31.62 [place] [id number] [id number] [address] [place] [phone] May, Chronic pain G89.29 [facility], [place] [address] [id number] [address] [place] [id number] Apr, Bipolar I disorder, most rec ent episode (or current) mixed, moderate F31.62 [facility], [place] [address] [id number] [address] [place] [phone] Apr, [facility], [place] [address] [id number] [address] [place] [phone] Apr, Chronic pain G89.29 and DM n euro manif type II E11.49 [facility], [place] [address] [id number] [address] [place] [phone] Apr, [facility], [place] [address] [facility] [id number] [address] [place] [phone] Apr, Bipolar I disorder, most rec ent episode (or current) mixed, moderate F31.62 [facility], [place] [address] [id number] 66 [place] [phone] Apr, Chronic pain G89.29 [facility], [place] [address] [id number] [address] [place] [phone] Apr, Iliotibial band syndrome, le ft M76.32 [facility], [place] [address] [facility] [id number] [address] [place] [address] Apr, Bipolar I disorder, most rec ent episode (or current) mixed, moderate F31.62 [facility], [place] [address] [facility] [id number] [address] [place] [phone] Mar, Bipolar I disorder, most rec ent episode (or current) mixed, moderate F31.62 [facility], [place] [address] [id number] [address] [place] [id number] Mar, Bipolar I disorder, most rec ent episode (or current) mixed, moderate F31.62 [facility], [place] [address] [facility] [id number] [address] [place] [phone] Mar, [facility], [place] [address] [facility] [id number] [address] [place] [id number] Mar, Bipolar I disorder, most rec ent episode (or current) mixed, moderate F31.62 [facility], [place] [address] [facility] [id number] [address] [place] [address] Mar, Chronic pain G89.29 [facility], [place] [address] [facility] [id number] [address] [place] [phone] Mar, Bipolar I disorder, most rec ent episode (or current) mixed, moderate F31.62 [facility], [place] [address] [id number] [address] [place] [phone] Mar, Bipolar I disorder, most rec ent episode (or current) mixed, moderate F31.62 [facility], [place] [address] [facility] [id number] [address] [place] [phone] Mar, Acute pain of left knee M25. 562 ; Left hip pain M25.552 ; Generalized edema R60.1 and Tongue swelling R22.0 [facility], [place] [address] [id number] [address] [place] [id number] Mar, [facility], [place] [address] [facility] [id number] [address] [place] [id number] Feb, Chronic pain G89.29 [facility], [place] [address] [facility] [id number] [address] [place] [id number] Feb, Diabetes E11.9 [facility], [place] [address] [facility] [id number] [address] [place] [phone] January, Chronic pain G89.29 [facility], [place] [address] [id number] [address] [place] [id number] January, [facility], [place] [address] [facility] [id number] [address] [place] [phone] January, Bipolar I disorder, most rec ent episode (or current) mixed, moderate F31.62 [facility], [place] [address] [facility] [id number] [address] [place] [id number] Dec, Bipolar I disorder, most rec ent episode (or current) mixed, moderate F31.62 [facility], [place] [address] [id number] [address] [place] [id number] Dec, Chronic pain G89.29 [facility], [place] [address] [facility] [id number] [address] [place] [phone] Dec, Bipolar I disorder, most rec ent episode (or current) mixed, moderate F31.62 [facility], [place] [address] [facility] [id number] [address] [place] [address] Dec, Diabetes E11.9 ; Essential h ypertension I10 ; Chronic pain G89.29 and Morbid obesity E66.01 [facility], [place] [address] [facility] [id number] [address] [place] [phone] Dec, [facility], [place] [address] [facility] [id number] [address] [place] [id number] Dec, Bipolar I disorder, most rec ent episode (or current) mixed, moderate F31.62 [facility], [place] [address] [facility] [id number] [address] [place] [phone] Dec, Bipolar I disorder, most rec ent episode (or current) mixed, moderate F31.62 [facility], [place] [address] [place] [id number] [address] [place] [phone] Nov, Chronic pain G89.29 [facility], [place] [address] [facility] [id number] [address] [place] [id number] Nov, Bipolar I disorder, most rec ent episode (or current) mixed, moderate F31.62 [facility], [place] [address] [facility] [id number] [address] [place] [id number] Nov, [facility], [place] [address] [place] [id number] [address] [place] [phone] Nov, Bipolar I disorder, most rec ent episode (or current) mixed, moderate F31.62 [facility], [place] [address] [facility] [id number] [address] [place] [phone] Nov, Bipolar I disorder, most rec ent episode (or current) mixed, moderate F31.62 [facility], [place] [address] [facility] [id number] [address] [place] [phone] Nov, [facility], [place] [address] [facility] [id number] [address] [place] [phone] Nov, [facility], [place] [address] [place] [id number] [address] [place] [phone] Nov, [facility], [place] [address] [facility] [id number] [address] [place] [address] Oct, Chronic pain G89.29 [facility], [place] [address] [facility] [id number] [address] [place] [phone] Oct, Bipolar I disorder, most rec ent episode (or current) mixed, moderate F31.62 [facility], [place] [address] [facility] [id number] [address] [place] [phone] Oct, [facility], [place] [address] [facility] [id number] [address] [place] [address] Oct, Chronic pain G89.29 ; Diabet es E11.9 ; Anxiety F41.9 and 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 [facility], [place] [address] [facility] [id number] [address] [place] [id number] Oct, [facility], [place] [address] [facility] [id number] [address] [place] [address] Oct, Diabetes E11.9 [facility], [place] [address] [facility] [id number] [address] [place] [id number] Oct, Bipolar I disorder, most rec ent episode (or current) mixed, moderate F31.62 [facility], [place] [address] [facility] [id number] [address] [place] [phone] Sep, Chronic pain G89.29 [facility], [place] [address] [facility] [id number] [address] [place] [id number] Sep, Chronic pain G89.29 [facility], [place] [address] [facility] [id number] [address] [place] [phone] Aug, Chronic pain G89.29 [facility], [place] [address] [facility] [id number] [address] [place] [id number] Jul, [facility], [place] [address] [facility] [id number] [address] [place] [id number] Jul, Diabetes E11.9 [facility], [place] [address] [facility] [id number] [address] [place] [phone] Jul, Chronic pain G89.29 [place] [address] [facility] [id number] [address] [place] [id number] Jul, Bipolar I disorder, most rec ent episode (or current) mixed, moderate F31.62 [place] [address] [facility] [id number] [address] [place] [phone] Jun, Bipolar I disorder, most rec ent episode (or current) mixed, moderate F31.62 [place] [address] [facility] [id number] [address] [place] [id number] Jun, [place] [address] [facility] [id number] [address] [place] [phone] Jun, Bipolar I disorder, most rec ent episode (or current) mixed, moderate F31.62 [place] [address] [facility] [id number] [address] [place] [id number] May, Insomnia, unspecified type G 47.00 [place] [address] [facility] [id number] [address] [place] [address] May, Bipolar I disorder, most rec ent episode (or current) mixed, moderate F31.62 [place] [address] [facility] [id number] [address] [place] [phone] 14 May, 2016 [place] [address] [facility] [id number] [address] [place] [id number] 08 May, 2016 Bipolar I disorder, most rec ent episode (or current) mixed, moderate F31.62 [place] [address] [facility] [id number] [address] [place] [id number] 06 May, 2016 Diabetes E11.9 and Essential hypertension I10 [place] [address] [facility] [id number] [address] [place] [address] Apr, Chronic pain G89.29 [place] [address] [facility] [id number] [address] [place] [phone] Apr, Bipolar I disorder, most rec ent episode (or current) mixed, moderate F31.62 [facility], [place] [address] [id number] [address] [place] [id number] Apr, [facility], [place] [address] [id number] [address] [place] [phone] Apr, [facility], [place] [address] [facility] [id number] [address] [place] [phone] Mar, Chronic pain G89.29 ; Headac he, unspecified headache type R51 ; Neuropathy G62.9 ; Pain of right hip joint M25.551 and Essential hypertension I10 [place] [address] [id number] [address] [place] [address] Mar, Chronic pain G89.29 [place] [address] [facility] [id number] [address] [place] [phone] Mar, Bipolar I disorder, most rec ent episode (or current) mixed, moderate F31.62 [facility], [place] [address] [id number] [address] [place] [phone] Feb, Bipolar I disorder, most rec ent episode (or current) mixed, moderate F31.62 and Insomnia, unspecified type G47.00 [place] [id number] [facility] [id number] [address] [place] [id number] Feb, Chronic pain G89.29 [facility], [place] [address] [id number] [address] [place] [phone] Feb, Bipolar I disorder, most rec ent episode (or current) mixed, moderate F31.62 [place] [address] [id number] [address] [place] [address] January, Bipolar I disorder, most rec ent episode (or current) mixed, moderate F31.62 [place] [address] [facility] [id number] [address] [place] [address] January, Chronic pain G89.29 [place] [address] [address] January, Chronic pain G89.29 and Esse ntial hypertension I10 [facility], [place] [address] [id number] January, Bipolar I disorder, most rec ent episode (or current) mixed, moderate F31.62 [facility], [place] [address] [address] Dec, [facility], [place] [address] [address] Dec, [facility], [place] [address] [address] Dec, [facility], [place] [address] [address] Dec, [facility], [place] [address] [address] Nov, Reactive airway disease J45. 909 [facility], [place] [address] [address] Nov, [facility], [place] [address] [phone] Nov, [facility], [place] [address] [address] Nov, [facility], [place] [address] [address] Nov, [facility], [place] [address] [address] Nov, Onychomycosis B35.1 ; Hammer toe M20.40 ; [place] or callus L84 and DM neuro manif type II E11.49 [facility], [place] [address] [place] [id number] [address] [place] [phone] 15 Nov, 2015 Chronic pain G89.29 ; Leukoc ytosis D72.829 and Diabetes E11.9 [facility], [place] [address] [address] Nov, [facility], [place] [address] [address] Oct, Bronchitis J40 [facility], [place] [address] [address] Oct, [facility], [place] [address] [id number] Oct, [place] [address] [address] Oct, Mastoiditis, unspecified lat erality H70.90 and Type 2 diabetes mellitus with complication E11.8 [place] [address] [address] Sep, [place] [address] [address] Sep, Dysuria R30.0 ; Cough R05 ; Benign prostatic hyperplasia with lower urinary tract symptoms, unspecified morphology N40.1 ; Hypokalemia E87.6 and Eustachian tube dysfunction, unspecified laterality H69.80 [place] [address] [address] Sep, Moderate mixed bipolar I dis order F31.62 [place] [address] [address] Sep, Hypokalemia E87.6 [place] [address] [address] Sep, [place] [address] [address] Sep, Upper respiratory tract infe ction, unspecified type J06.9 [place] [address] [address] Aug, [place] [address] [id number] [address] [place] [phone] Aug, Dysuria R30.0 [facility], [place] [address] [id number] [address] [place] [phone] Aug, [facility], [place] [address] [id number] [address] [place] [id number] Jul, [facility], [place] [address] [id number] [address] [place] [phone] Jul, [facility], [place] [address] [id number] [address] [place] [id number] Jul, [facility], [place] [address] [id number] [address] [place] [phone] Jul, [facility], [place] [address] [id number] [address] [place] [phone] Jun, [facility], [place] [address] [id number] [address] [place] [phone] Jun, [facility], [place] [address] [id number] [address] [place] [phone] Jun, [facility], [place] [address] [id number] [address] [place] [phone] May, [facility], [place] [address] [id number] [address] [place] [id number] May, Bipolar I disorder, most rec ent episode (or current) mixed, moderate 296.62 [facility], [place] [address] [id number] [address] [place] [id number] 16 May, 2015 [facility], [place] [address] [id number] [address] [place] [phone] May, Bipolar I disorder, most rec ent episode (or current) mixed, moderate 296.62 and Major depressive disorder, recurrent episode, severe, specified as with psychotic behavior 296.34 [facility], [place] [address] [id number] [address] [place] [phone] May, Bipolar I disorder, most rec ent episode (or current) mixed, moderate 296.62 [facility], [place] [address] [id number] [address] [place] [address] May, [facility], [place] [address] [facility] [id number] [address] [place] [id number] Apr, [facility], [place] [address] [facility] [id number] [address] [place] [phone] Apr, [facility] [place] [address] [facility] [id number] [address] [place] [address] Apr, Unspecified disorder of kidn ey and ureter 593.9 and Diabetes mellitus type 2, uncontrolled 250.02 [facility] [place] [address] [facility] [id number] [address] [place] [id number] Apr, [facility] [place] [address] [facility] [id number] [address] [place] [phone] Apr, [facility], [place] [address] [place] [id number] [address] [place] [phone] Apr, [facility], [place] [address] [id number] [address] [place] [phone] Apr, [facility] [place] [address] [facility] [id number] [address] [place] [address] Apr, Diabetes mellitus type II, u ncontrolled 250.02 [facility] [place] [address] [facility] [id number] [address] [place] [id number] Apr, [facility], [place] [address] [id number] [address] [place] [phone] Mar, [facility] [place] [address] [facility] [id number] [address] [place] [id number] Mar, [facility] [place] [address] [facility] [id number] [address] [place] [address] Mar, [facility] [place] [address] [facility] [id number] [address] [place] [address] Mar, Major depressive disorder, r ecurrent episode, severe, specified as with psychotic behavior 296.34 and Bipolar I disorder, most recent episode (or current) mixed, moderate 296.62 [facility] [place] [address] [address] Mar, Diabetes 250.00 ; Anuria 788 .5 ; Nausea and vomiting 787.01 and Diarrhea 787.91 [facility], [place] [address] [address] Mar, Diabetes 250.00 [facility] [place] [address] [address] Mar, [facility] [place] [address] [address] Mar, Diabetes 250.00 [facility] [place] [address] [address] Mar, [facility] [place] [address] [address] Mar, [facility] [place] [address] [address] Mar, [facility] [place] [address] [address] Mar, [facility] [place] [address] [address] Mar, Bipolar I disorder, most rec ent episode (or current) mixed, moderate 296.62 and Major depressive disorder, recurrent episode, severe, specified as with psychotic behavior 296.34 [facility] [place] [address] [address] Mar, Magnesium deficiency 275.2 ; Hypokalemia 276.8 ; Nausea & vomiting 787.01 and Diabetes mellitus type 2, uncontrolled 250.02 [facility] [place] [address] [place] [id number] [place] [phone] Feb, [facility], [place] [address] [id number] Feb, Bipolar I disorder, most rec ent episode (or current) mixed, moderate 296.62 [place] [address] [id number] Feb, Nausea and vomiting 787.01 ; Left elbow pain 719.42 ; Anuria 788.5 and Diabetes 250.00 [place] [address] [address] Feb, [place] [address] [id number] Feb, Hypopotassemia 276.8 and Hyp okalemia 276.8 [place] [address] [id number] Feb, Hypopotassemia 276.8 and Hyp okalemia 276.8 [place] [address] [id number] Feb, Seborrheic keratoses 702.19 [place] [address] [id number] Feb, Hypopotassemia 276.8 and Low magnesium levels 275.2 [place] [address] [id number] January, [place] [address] [address] January, [facility] [place] [address] [id number] January, [place] [address] [id number] January, Scalp lesion 709.9 [place] [address] [id number] January, [facility] [place] [address] [id number] 30 Dec, 2014 Tear of medial cartilage or meniscus of knee, current 836.0 and 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 [facility] [address] [id number] [address] [place] [id number] Dec, [facility] [address] [id number] [address] [place] [id number] Dec, [facility] [address] [id number] [address] [place] [phone] Dec, Squamous cell carcinoma, 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 [facility] [address] [id number] [address] [place] [id number] 14 Dec, 2014 [facility] [address] [id number] [address] [place] [id number] Dec, [facility] [address] [id number] [address] [place] [id number] Nov, [facility] [address] [id number] [address] [place] [id number] Nov, [facility] [address] [id number] [address] [place] [id number] Nov, [facility] [address] [id number] [address] [place] [id number] Nov, [facility] [place] [address] [id number] [address] [place] [id number] Nov, [facility] [address] [id number] [address] [place] [id number] Nov, [facility] [address] [id number] [address] [place] [id number] Nov, [facility] [address] [id number] [address] [place] [phone] Nov, [facility] [address] [id number] [address] [place] [id number] Nov, [facility] [address] [id number] [address] [place] [address], [place] [id number] Nov, [facility] [address] [id number] [address] [place] [address], [place] [id number] Nov, [facility] [address] [id number] [address] [place] [address], [place] [id number] Nov, [facility] [address] [id number] [address] [place] [address], [place] [id number] Oct, 2014 [facility] [address] [id number] [address] [place] [address], [place] [id number] Oct, 2014 [facility] [address] [id number] [address] [place] [address], [place] [id number] Oct, 2014 [facility] [facility] [address] [id number] [address] [place] [address], [place] [address] Oct, 2014 [facility] [address] [id number] [address] [place] [id number] Oct, [facility] [address] [id number] [address] [place] [address], [place] [address] Oct, [facility] [address] [id number] [address] [place] [id number] Oct, [facility] [address] [id number] [address] [place] [id number] Oct, [facility] [address] [id number] [address] [place] [id number] Oct, [facility] [address] [id number] [address] [place] [id number] Sep, [facility] [address] [id number] [address] [place] [id number] Sep, [facility] [address] [id number] [address] [place] [id number] Sep, [facility] [address] [id number] [address] [place] [id number] Sep, [facility] [address] [id number] [address] [place] [address], [place] [address] Sep, [facility] [address] [id number] [address] [place] [address], [place] [address] Sep, [facility] [address] [id number] [address] [place] [address], [place] [address] Sep, [facility] [address] [id number] [address] [place] [address], [place] [address] Sep, [facility] [address] [id number] [address] [place] [address], [place] [address] Sep, [facility] [address] [id number] [address] [place] [address], [place] [address] Sep, [facility] [address] [id number] [address] [place] [address], [place] [address] Sep, [facility] [address] [id number] [address] [place] [address], [place] [address] Sep, [facility] [address] [id number] [address] [place] [address], [place] [address] Sep, [facility] [address] [id number] [address] [place] [address], [place] [address] Sep, [facility] [address] [id number] [address] [place] [address], [place] [address] Sep, [facility] [address] [id number] [address] [place] [address], [place] [address] Sep, [facility] [address] [id number] [address] [place] [address], [place] [address] Aug, [facility] [address] [id number] [address] [place] [address], [place] [address] Aug, [facility] [address] [id number] [address] [place] [address], [place] [address] Aug, [facility] [address] [id number] [facility] [address] Aug, [facility] [address] [id number] [facility] [address] Aug, [facility] [address] [id number] [facility] [address] Aug, [facility] [address] [id number] [facility] [address] Aug, [facility] [address] [id number] [facility] [address] Aug, [facility] [address] [id number] [address] [place] [address], [place] [address] Aug, [facility] [address] [id number] [address] [place] [address], [place] [address] Aug, [facility] [address] [id number] [address] [place] [address], [place] [address] Aug, [facility] [address] [place] [id number] Aug, [facility] [address] [id number] [address] [place] [address], [place] [address] Aug, [facility] [address] [id number] [address] [place] [address], [place] [address] Aug, [facility] [address] [id number] [address] [place] [address], [place] [address] Aug, [facility] [address] [id number] [address] [place] [address], [place] [address] Aug, [facility] [address] [id number] [address] [place] [address], [place] [address] Aug, [facility] [address] [id number] [facility] [place] [address] Aug, [facility] [address] [id number] [address] [place] [address], [place] [address] Aug, [facility] [address] [id number] [address] [place] [address], [place] [address] Aug, [facility] [address] [id number] [address] [place] [address], [place] [address] Aug, [facility] [address] [id number] [address] [place] [address], [place] [address] Aug, [facility] [address] [id number] [address] [place] [address], [place] [address] Aug, [facility] [address] [id number] [address] [place] [address], [place] [address] Aug, [facility] [address] [id number] [address] [place] [address], [place] [address] Aug, [facility] [address] [id number] [address] [place] [address], [place] [address] Aug, [facility] [address] [id number] [address] [place] [address], [place] [address] Aug, [facility] [address] [id number] [address] [place] [address], [place] [address] Aug, [facility] [address] [id number] [address] [place] [address], [place] [address] Aug, [facility] [address] [id number] [address] [place] [address], [place] [address] Aug, [facility] [address] [id number] [address] [place] [address], [place] [address] Jul, [facility] [address] [id number] [address] [place] [address], [place] [address] Jul, [facility] [address] [id number] [address] [place] [address], [place] [address] Jul, [facility] [address] [id number] [address] [place] [address], [place] [address] Jul, [facility] [address] [id number] [address] [place] [id number] Jul, [facility] [address] [id number] [address] [place] [address], [place] [address] Jul, [facility] [address] [id number] [address] [place] [id number] Jul, [facility] [address] [id number] [address] [place] [address], [place] [address] Jul, [facility] [address] [id number] [address] [place] [id number] Jul, [facility] [address] [id number] [address] [place] [address], [place] [address] Jul, [facility] [address] [id number] [address] [place] [address], [place] [address] Jun, [facility] [address] [id number] [address] [place] [id number] Jun, [facility] [address] [id number] [address] [place] [id number] Jun, [facility] [address] [id number] [address] [place] [address] Jun, [facility] [address] [id number] [address] [place] [id number] Jun, [facility] [address] [id number] [address] [place] [id number] Jun, [facility] [address] [id number] [address] [place] [address] Jun, [facility] [address] [id number] [address] [place] [address] Jun, [facility] [address] [id number] [address] [place] [id number] Jun, [facility] [address] [id number] [address] [place] [id number] Jun, [facility] [address] [id number] [facility] [place] [address] 29 Sep, 2013 [facility] [address] [id number] [facility] [place] [address] 29 Sep, 2013 [facility] [address] [id number] [facility] [address] 26 Sep, 2013 [facility] [address] [id number] [address] [place] [address], [place] [address] 26 Sep, 2013 [facility] [address] [id number] [address] [place] [address], [place] [address] 17 Sep, 2013 [facility] [address] [id number] [address] [place] [address], [place] [address] 17 Sep, 2013 [facility] [address] [id number] [address] [place] [address], [place] [address] 15 Sep, 2013 [facility] [address] [id number] [address] [place] [address], [place] [address] 15 Sep, 2013 [facility] [address] [id number] [address] [place] [address], [place] [address] 15 Sep, 2013 [facility] [address] [id number] [address] [place] [address], [place] [address] 15 Sep, 2013 [facility] [address] [id number] [address] [place] [address], [place] [address] 10 Sep, 2013 [facility] [address] [id number] [address] [place] [address], [place] [address] 10 Sep, 2013 [facility] [address] [id number] [address] [place] [address], [place] [address] 09 Sep, 2013 [facility] [address] [id number] [address] [place] [address], [place] [address] 09 Sep, 2013 [facility] [address] [id number] [address] [place] [address], [place] [id number] 04 Sep, 2013 [facility] [address] [id number] [address] [place] [address], [place] [address] May, [facility] [address] [id number] [facility] [address] Apr, [facility] [address] [id number] [address] [place] [address], [place] [address] Apr, [facility] [address] [id number] [address] [place] [address], [place] [address] Apr, [facility] [address] [id number] [address] [place] [address], [place] [address] Apr, [facility] [address] [id number] [address] [place] [address], [place] [address] Apr, [facility] [address] [id number] [address] [place] [address], [place] [address] Apr, [facility] [address] [id number] [address] [place] [address], [place] [address] Apr, [facility] [address] [id number] [address] [place] [address], [place] [address] Apr, [facility] [address] [id number] [address] [place] [address], [place] [address] Apr, [facility] [address] [id number] [address] [place] [address], [place] [address] Apr, [facility] [address] [id number] [address] [place] [address], [place] [address] Apr, [facility] [address] [id number] [address] [place] [address], [place] [address] Apr, [facility] [address] [id number] [address] [place] [address], [place] [address] Apr, [facility] [address] [id number] [address] [place] [address], [place] [address] Apr, [facility] [address] [id number] [address] [place] [address], [place] [address] Apr, [facility] [address] [id number] [address] [place] [address], [place] [address] Mar, 2013 [facility] [address] [id number] [facility] [address] Mar, 2013 [facility] [address] [id number] [facility] [address] Mar, 2013 [facility] [address] [id number] [address] [place] [address], [place] [address] Mar, 2013 [facility] [address] [id number] [address] [place] [address], [place] [address] Mar, 2013 [facility] [address] [id number] [address] [place] [address], [place] [address] Mar, 2013 [facility] [address] [id number] [address] [place] [address], [place] [address] Mar, 2013 [facility] [address] [id number] [address] [place] [address], [place] [address] Mar, 2013 [facility] [address] [id number] [address] [place] [address], [place] [address] Mar, 2013 [facility] [address] [id number] [address] [place] [address], [place] [address] Mar, 2013 [facility] [address] [id number] [address] [place] [address], [place] [address] Mar, 2013 [facility] [address] [id number] [address] [place] [address], [place] [address] Mar, 2013 [facility] [address] [id number] [address] [place] [address], [place] [address] Mar, 2013 [facility] [address] [id number] [address] [place] [address], [place] [address] Mar, 2013 [facility] [address] [id number] [address] [place] [address], [place] [address] Mar, 2013 [facility] [address] [id number] [address] [place] [address], [place] [address] Mar2013 [facility] [address] [id number] [facility] [address] Mar, [facility] [address] [id number] [facility] [place] [address] Mar, [facility] [address] [id number] [facility] [place] [address] Feb, [facility] [address] [id number] [facility] [place] [address] Feb, [facility] [address] [id number] [facility] [place] [address] Feb, [facility] [address] [id number] [address] [place] [address], [place] [address] Feb, [facility] [address] [id number] [address] [place] [address], [place] [address] Feb, [facility] [address] [id number] [address] [place] [address], [place] [address] Feb, [facility] [address] [id number] [address] [place] [address], [place] [address] Feb, [facility] [address] [id number] [address] [place] [address], [place] [address] Feb, [facility] [address] [id number] [address] [place] [address], [place] [address] Feb, [facility] [address] [id number] [address] [place] [address], [place] [address] Feb, [facility] [address] [id number] [address] [place] [address], [place] [address] Feb, [facility] [address] [id number] [address] [place] [address], [place] [address] Feb, [facility] [address] [id number] [address] [place] [address], [place] [address] Feb, [facility] [address] [id number] [address] [place] [address], [place] [address] Feb, [facility] [address] [id number] [facility] [address] January, [facility] [address] [id number] [address] [place] [address], [place] [address] January, [facility] [address] [id number] [address] [place] [address], [place] [address] January, [facility] [address] [id number] [address] [place] [address], [place] [address] January, [facility] [address] [id number] [address] [place] [address], [place] [address] January, [facility] [address] [id number] [address] [place] [address], [place] [address] January, [facility] [address] [id number] [address] [place] [address], [place] [address] January, [facility] [address] [id number] [address] [place] [address], [place] [address] January, [facility] [address] [id number] [address] [place] [address], [place] [address] January, [facility] [address] [id number] [address] [place] [address], [place] [address] January, [facility] [address] [id number] [address] [place] [address], [place] [address] January, [facility] [address] [id number] [address] [place] [address], [place] [address] January, [facility] [address] [id number] [address] [place] [address], [place] [address] January, [facility] [address] [id number] [address] [place] [address], [place] [address] January, [facility] [address] [id number] [address] [place] [address], [place] [address] Dec, [facility] [address] [id number] [facility] [place] [address] Dec, [facility] [address] [id number] [facility] [place] [address] Dec, [facility] [address] [id number] [address] [place] [address], [place] [address] Dec, [facility] [address] [id number] [address] [place] [address], [place] [address] Dec, [facility] [address] [id number] [address] [place] [address], [place] [address] Dec, [facility] [address] [id number] [address] [place] [address], [place] [id number] Dec, [facility] [address] [id number] [address] [place] [address], [place] [id number] Dec, [facility] [address] [id number] [address] [place] [address], [place] [id number] Dec, [facility] [address] [id number] [address] [place] [address], [place] [id number] Dec, [facility] [address] [id number] [address] [place] [address], [place] [address] Nov, [facility] [address] [id number] [address] [place] [address], [place] [address] Nov, [facility] [address] [id number] [address] [place] [address], [place] [address] Nov, [facility] [address] [id number] [address] [place] [address], [place] [address] Nov, [facility] [address] [id number] [address] [place] [address], [place] [id number] Nov, [facility] [address] [id number] [address] [place] [address], [place] [id number] Nov, [facility] [address] [id number] [address] [place] [address], [place] [id number] Nov, [facility] [address] [id number] [facility] [id number] Nov, [facility] [address] [id number] [address] [place] [address], [place] [id number] Nov, [facility] [address] [id number] [facility] [address] Nov, [facility] [address] [id number] [address] [place] [address], [place] [address] Oct, [facility] [address] [id number] [address] [place] [address], [place] [address] Oct, [facility] [address] [id number] [address] [place] [address], [place] [address] Oct, [facility] [address] [id number] [address] [place] [address], [place] [address] Oct, [facility] [address] [id number] [address] [place] [address], [place] [address] Oct, [facility] [address] [id number] [address] [place] [address], [place] [address] Oct, [facility] [address] [id number] [address] [place] [address], [place] [address] Oct, [facility] [address] [id number] [address] [place] [address], [place] [address] Oct, [facility] [address] [id number] [address] [place] [address], [place] [address] Oct, [facility] [address] [id number] [address] [place] [address], [place] [id number] Oct, [facility] [address] [id number] [address] [place] [address], [place] [address] Oct, [facility] [address] [id number] [address] [place] [address], [place] [address] Oct, [facility] [address] [id number] [address] [place] [address], [place] [address] Oct, [facility] [address] [id number] [address] [place] [address], [place] [address] Oct, [facility] [address] [id number] [address] [place] [address], [place] [address] Sep, [facility] [address] [id number] [address] [place] [address], [place] [address] Sep, [facility] [address] [id number] [address] [place] [address], [place] [id number] Sep, [facility] [address] [id number] [address] [place] [address], [place] [address] Sep, [facility] [address] [id number] [address] [place] [address], [place] [address] Sep, [facility] [address] [id number] [address] [place] [address], [place] [id number] Sep, [facility] [address] [id number] [address] [place] [address], [place] [id number] Sep, [facility] [address] [id number] [address] [place] [address], [place] [address] Sep, [facility] [address] [id number] [address] [place] [address], [place] [address] Sep, [facility] [address] [id number] [address] [place] [address], [place] [address] Sep, [facility] [address] [id number] [address] [place] [address], [place] [address] Aug, [facility] [address] [id number] [address] [place] [address], [place] [address] Aug, [facility] [address] [id number] [address] [place] [address], [place] [address] Jul, [facility] [address] [id number] [address] [place] [address] [address] Jul, [facility] [address] [id number] [address] [place] [address], [place] [address] Jul, [facility] [address] [id number] [address] [place] [address], [place] [address] Jul, [facility] [address] [id number] [address] [place] [address], [place] [address] Jul, [facility] [address] [id number] [address] [place] [address], [place] [id number] Jul, [facility] [address] [id number] [address] [place] [address], [place] [address] Jul, [facility] [address] [id number] [address] [place] [address], [place] [address] Jul, [facility] [address] [id number] [address] [place] [address], [place] [address] Jul, [facility] [address] [id number] [address] [place] [address], [place] [address] Jul, [facility] [address] [id number] [address] [place] [address], [place] [address] Jul, [facility] [address] [id number] [address] [place] [address], [place] [address] Jul, [facility] [address] [id number] [address] [place] [id number] Jul, [facility] [address] [id number] [address] [place] [id number] Jul, [facility] [address] [id number] [address] [place] [address], [place] [address] Jul, [facility] [address] [id number] [address] [place] [id number] Jul, [facility] [address] [id number] [address] [place] [id number] Jul, [facility] [address] [id number] [address] [place] [address], [place] [address] Jul, 2012 [facility] [address] [id number] [address] [place] [address], [place] [address] Jul, 2012 [facility] [address] [id number] [address] [place] [address], [place] [address] Jun, 2012 [facility] [address] [id number] [address] [place] [address], [place] [address] Jun, 2012 [facility] [address] [id number] [address] [place] [address], [place] [address] Jun, 2012 [facility] [address] [id number] [address] [place] [address], [place] [address] Jun, 2012 [facility] [address] [id number] [address] [place] [address], [place] [address] Jun, 2012 [facility] [address] [id number] [address] [place] [address], [place] [address] Jun, 2012 [facility] [address] [id number] [address] [place] [address], [place] [address] Jun, 2012 [facility] [address] [id number] [address] [place] [address], [place] [address] Jun, 2012 [facility] [address] [id number] [address] [place] [id number] Jun, [facility] [address] [id number] [address] [place] [address], [place] [address] Jun, 2012 [facility] [address] [id number] [address] [place] [id number] Jun, [facility] [address] [id number] [address] [place] [address], [place] [address] May, 2012 [facility] [address] [id number] [address] [place] [address], [place] [address] 25 May, 2012 [facility] [address] [id number] [address] [place] [id number] 19 May, 2012 [facility] [address] [id number] [address] [place] [address], [place] [address] 17 May, 2013 [facility] [address] [id number] [address] [place] [address], [place] [address] May, [facility] [address] [id number] [address] [place] [address], [place] [address] May, [facility] [address] [id number] [address] [place] [address], [place] [address] May, [facility] [address] [id number] [address] [place] [address], [place] [address] 05 May, 2013 [facility] [address] [id number] [address] [place] [address], [place] [address] Apr, [facility] [address] [id number] [address] [place] [address], [place] [address] Apr, [facility] [address] [id number] [address] [place] [address], [place] [address] Apr, [facility] [address] [id number] [address] [place] [address], [place] [address] Apr, [facility] [address] [id number] [address] [place] [address], [place] [address] Apr, [facility] [address] [id number] [address] [place] [address], [place] [address] Mar, [facility] [address] [id number] [address] [place] [address], [place] [address] Mar, [facility] [address] [id number] [address] [place] [address], [place] [address] Mar, [facility] [address] [id number] [address] [place] [address], [place] [address] Mar, [facility] [address] [id number] [address] [place] [address], [place] [address] Mar, [facility] [address] [id number] [address] [place] [address], [place] [address] Mar, [facility] [address] [id number] [address] [place] [address], [place] [address] Mar, [facility] [address] [id number] [address] [place] [address], [place] [address] Mar, [facility] [address] [id number] [address] [place] [address], [place] [address] Feb, [facility] [address] [id number] [address] [place] [address], [place] [address] Feb, [facility] [address] [id number] [address] [place] [address], [place] [address] January, [facility] [address] [id number] [address] [place] [address], [place] [address] January, [facility] [address] [id number] [address] [place] [address], [place] [address] Dec, [facility] [address] [id number] [address] [place] [address], [place] [address] Dec, [facility] [address] [id number] [address] [place] [address], [place] [address] Nov, [facility] [address] [id number] [address] [place] [address], [place] [address] Nov, [facility] [address] [id number] [address] [place] [address], [place] [address] Nov, [facility] [address] [id number] [address] [place] [address], [place] [address] Nov, [facility] [address] [id number] [address] [place] [address], [place] [address] Oct, [facility] [address] [id number] [address] [place] [address], [place] [address] Oct, [facility] [address] [id number] [address] [place] [address], [place] [address] Oct, [facility] [address] [id number] [address] [place] [address], [place] [address] 26 Oct, 2012 [facility] [address] [id number] [address] [place] [address], [place] [address] 16 Oct, 2012 [facility] [address] [id number] [address] [place] [address], [place] [address] 14 Oct, 2012 [facility] [address] [id number] [address] [place] [address], [place] [address] 08 Oct, 2012 [facility] [address] [id number] [address] [place] [address], [place] [address] 07 Oct, 2012 [facility] [address] [id number] [address] [place] [address], [place] [address] 03 Oct, 2012 [facility] [address] [id number] [address] [place] [address], [place] [address] 30 Sep, 2012 [facility] [address] [id number] [address] [place] [address], [place] [address] Sep, [facility] [address] [id number] [address] [place] [address], [place] [address] Sep, [facility] [address] [id number] [address] [place] [address], [place] [address] Sep, [facility] [address] [id number] [address] [place] [address], [place] [address] 17 Sep, 2012 [facility] [address] [id number] [address] [place] [address], [place] [address] Sep, [facility] [address] [id number] [address] [place] [address], [place] [address] Sep, [facility] [address] [id number] [address] [place] [address], [place] [address] 08 Sep, 2012 [facility] [address] [id number] [address] [place] [address], [place] [address] Aug, [facility] [address] [id number] [address] [place] [address], [place] [address] Aug, [facility] [address] [id number] [address] [place] [address], [place] [address] Aug, [facility] [address] [id number] [address] [place] [address], [place] [address] Aug, [facility] [address] [id number] [address] [place] [address], [place] [address] Aug, [facility] [address] [id number] [address] [place] [address], [place] [address] Aug, [facility] [address] [id number] [address] [place] [address], [place] [address] Aug, [facility] [address] [id number] [address] [place] [address], [place] [address] Aug, [facility] [address] [id number] [address] [place] [address], [place] [address] Jul, [facility] [address] [id number] [address] [place] [address], [place] [address] Jul, [facility] [address] [id number] [address] [place] [address], [place] [address] Jul, [facility] [address] [id number] [address] [place] [address], [place] [address] Jul, [facility] [address] [id number] [address] [place] [address], [place] [address] Jul, [facility] [address] [id number] [address] [place] [address], [place] [address] Jul, [facility] [address] [id number] [address] [place] [address], [place] [address] Jun, [facility] [address] [id number] [address] [place] [address], [place] [address] Jun, [facility] [address] [id number] [address] [place] [address], [place] [address] Jun, [facility] [address] [id number] [address] [place] [address], [place] [address] 23 Jun, 2012 [facility] [address] [id number] [address] [place] [address], [place] [address] Jun, [facility] [address] [id number] [address] [place] [address], [place] [address] Jun, [facility] [address] [id number] [address] [place] [address], [place] [address] Jun, [facility] [address] [id number] [address] [place] [address], [place] [address] Jun, [facility] [address] [id number] [address] [place] [address], [place] [address] Jun, [facility] [address] [id number] [address] [place] [address], [place] [address] 26 May, 2012 [facility] [address] [id number] [address] [place] [address], [place] [address] 24 May, 2012 [facility] [address] [id number] [address] [place] [address], [place] [address] 18 May, 2012 [facility] [address] [id number] [address] [place] [address], [place] [address] 30 Apr, 2012 [facility] [address] [id number] [address] [place] [address], [place] [address] 29 Apr, 2012 [facility] [address] [id number] [address] [place] [address], [place] [address] Apr, [facility] [address] [id number] [address] [place] [address], [place] [address] 14 Apr, 2012 [facility] [address] [id number] [address] [place] [address], [place] [address] Apr, [facility] [address] [id number] [address] [place] [address], [place] [address] Apr, [facility] [address] [id number] [address] [place] [address], [place] [address] Mar, [facility] [address] [id number] [address] [place] [address], [place] [address] Mar, [facility] [address] [id number] [address] [place] [address], [place] [address] Mar, [facility] [address] [id number] [address] [place] [address], [place] [address] Mar, [facility] [address] [id number] [address] [place] [address], [place] [address] Feb, [facility] [address] [id number] [address] [place] [address], [place] [address] Feb, [facility] [address] [id number] [address] [place] [address], [place] [address] Feb, [facility] [address] [id number] [address] [place] [address], [place] [address] Feb, [facility] [address] [id number] [address] [place] [address], [place] [address] Feb, [facility] [address] [id number] [address] [place] [address], [place] [address] January, [facility] [address] [id number] [address] [place] [address], [place] [address] January, [facility] [address] [id number] [address] [place] [address], [place] [address] January, [facility] [address] [id number] [address] [place] [address], [place] [address] January, [facility] [address] [id number] [address] [place] [address], [place] [address] January, [facility] [address] [id number] [address] [place] [address], [place] [address] January, [facility] [address] [id number] [address] [place] [address], [place] [address] Dec, [facility] [address] [id number] [address] [place] [address], [place] [address] 24 Dec, 2011 [facility] [address] [id number] [address] [place] [address], [place] [address] 17 Dec, 2011 [facility] [address] [id number] [address] [place] [address], [place] [address] 09 Dec, 2011 [facility] [address] [id number] [address] [place] [address], [place] [address] 06 Dec, 2011 [facility] [address] [id number] [address] [place] [address], [place] [address] 27 Nov, 2011 [facility] [address] [id number] [address] [place] [address], [place] [address] 14 Nov, 2011 [facility] [address] [id number] [address] [place] [address], [place] [address] 12 Nov, 2011 [facility] [address] [id number] [address] [place] [address], [place] [address] 07 Nov, 2011 [facility] [address] [id number] [address] [place] [address], [place] [address] 29 Oct, 2011 [facility] [address] [id number] [address] [place] [address], [place] [address] 28 Oct, 2011 [facility] [address] [id number] [address] [place] [address], [place] [address] 24 Oct, 2011 [facility] [address] [id number] [address] [place] [address], [place] [address] 13 Oct, 2011 [facility] [address] [id number] [address] [place] [address], [place] [address] 08 Oct, 2011 [facility] [address] [id number] [address] [place] [address], [place] [address] 31 Sep, 2011 [facility] [address] [id number] [address] [place] [address], [place] [address] 30 Sep, 2011 [facility] [address] [id number] [address] [place] [address], [place] [address] Sep, [facility] [address] [id number] [address] [place] [address], [place] [address] Sep, [facility] [address] [id number] [address] [place] [address], [place] [address] Sep, [facility] [address] [id number] [address] [place] [address], [place] [address] Sep, [facility] [address] [id number] [address] [place] [address], [place] [address] Aug, [facility] [address] [id number] [address] [place] [address], [place] [address] Aug, [facility] [address] [id number] [address] [place] [address], [place] [address] Aug, [facility] [address] [id number] [address] [place] [address], [place] [address] Jul, [facility] [address] [id number] [address] [place] [address], [place] [address] Jul, [facility] [address] [id number] [address] [place] [address], [place] [address] Jul, [facility] [address] [id number] [address] [place] [id number] Jul, [facility] [address] [id number] [address] [place] [id number] Jun, [facility] [address] [id number] [address] [place] [id number] Jun, [facility] [address] [id number] [address] [place] [address], [place] [address] 18 Jun, 2011 [facility] [address] [id number] [address] [place] [address], [place] [address] Jun, [facility] [address] [id number] [address] [place] [id number] Jun, [facility] [address] [id number] [address] [place] [id number] 10 Jun, 2011 [facility] [address] [id number] [address] [place] [address], [place] [address] 11 Mar, 2011 [facility] [address] [id number] [address] [place] [address], [place] [address] 18 Dec, 2010 [facility] [address] [id number] [address] [place] [address], [place] [address] 11 Dec, 2010 [facility] [address] [id number] [address] [place] [address], [place] [address] 18 Nov, 2010 [facility] [address] [id number] [address] [place] [address], [place] [address] 16 Nov, 2010 [facility] [address] [id number] [address] [place] [address], [place] [address] 10 Sep, 2010 [facility] [address] [id number] [address] [place] [address], [place] [address] 31 Aug, 2010 [facility] [address] [id number] [address] [place] [address], [place] [address] 29 Aug, 2010 [facility] [address] [id number] [address] [place] [address], [place] [id number] 29 Aug, 2010 [facility] [address] [id number] [address] [place] [address], [place] [id number] 29 Aug, 2010 [facility] [address] [id number] [address] [place] [address], [place] [id number] 27 Aug, 2010 [facility] [address] [id number] [address] [place] [address], [place] [id number] 14 Aug, 2010 [facility] [address] [id number] [address] [place] [address], [place] [id number] 08 Aug, 2010 [facility] [address] [id number] [address] [place] [address], [place] [id number] 08 Aug, 2010 [facility] [address] [id number] [address] [place] [address], [place] [id number] 07 Aug, 2010 [facility] [address] [id number] [address] [place] [address], [place] [id number] Aug, [facility] [address] [id number] [address] [place] [address], [place] [id number] Aug, [facility] [address] [id number] [address] [place] [address], [place] [id number] Aug, [facility] [address] [id number] [address] [place] [address], [place] [id number] Jul, [facility] [address] [id number] [address] [place] [address], [place] [id number] Jul, [facility] [address] [id number] [address] [place] [address], [place] [id number] Jul, [facility] [address] [id number] [address] [place] [address], [place] [id number] Jul, [facility] [address] [id number] [address] [place] [address], [place] [id number] Jul, [facility] [address] [id number] [address] [place] [address], [place] [id number] Jul, [facility] [address] [id number] [address] [place] [address], [place] [id number] Jun, [facility] [address] [id number] [address] [place] [address], [place] [id number] Jun, [facility] [address] [id number] [address] [place] [address], [place] [address] Jun, [facility] [address] [id number] [address] [place] [address], [place] [id number] Jun, [facility] [address] [id number] [address] [place] [address], [place] [id number] Apr, [facility] [address] [id number] [address] [place] [address], [place] [id number] Mar, [facility] [address] [id number] [address] [place] [address], [place] [id number] Feb, [facility] [address] [id number] [address] [place] [phone] January, [facility] [address] [id number] [address] [place] [address], [place] [id number] 15 Dec, 2009 [facility] [address] [id number] [address] [place] [phone] Nov, [facility] [address] [id number] [address] [place] [address], [place] [id number] Aug, [facility] [address] [id number] [address] [place] [address], [place] [id number] Aug, [facility] [address] [id number] [address] [place] [phone] Aug, [facility] [address] [id number] [address] [place] [address], [place] [id number] Jul, [facility] [address] [id number] [address] [place] [phone] Jul, [facility] [address] [id number] [address] [place] [phone] Jul, [facility] [address] [id number] [address] [place] [id number] 30 Jun, 2009 [facility] [address] [id number] [address] [place] [phone] 29 Jun, 2009 [facility] [address] [id number] [address] [place] [phone] Jun, [facility] [address] [id number] [address] [place] [phone] Jun, [facility] [address] [id number] [address] [place] [phone] Jun, [facility] [address] [id number] [address] [place] [id number] Jun, [facility] [address] [id number] [address] [place] [phone] Apr, [facility] [place] [address] [facility] [id number] [address] [place] [phone] Apr, [facility] [place] [address] [facility] [id number] [address] [place] [phone] Feb, [facility] [place] [address] [facility] [id number] [address] [place] [phone] January, [facility] [place] [address] [facility] [id number] [address] [place] [phone] Dec, IMMUNIZATIONS No Known Immunizations SOCIAL HISTORY [...] Medical History skin cancer-basal cell R spiritism (removed ) Medical History Arthritis Medical History [...] (Left) 2000 Surgical History EGD ([facility]) 2009 Surgical History colonoscopy 2009 ([facility]), 2013 ([place] ) Surgical History heart cath: CAD w/ [...] urinate 09/16/15 Hospitalization History [facility] e[facility] 1999' Hospitalization History hyperkalemia 10/2017 Hospitalization History fluid in lung
[2020-03-01 17:28] LABS: ALANINE AMINOTRANSFERASE 15 U/L (0-55); MAGNESIUM 1.5 MG/DL (1.6-2.4)
--- OUTSIDE RECORDS SUMMARY | 2020-03-01 17:28 | XMS REPORT ---
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 Name Role Phone NOEMI WASHBURN Unavailable PROBLEMS Type Condition ICD9-CM Code KUV90-DK Code Onset Dates Condition S tatus SNOMED Code Problem Cough R05 Active 38764540 Problem Benign prostatic hyperplasia with lower urinary tract symptoms, unspecified morphology N40.1 Active 00153 6007 Problem Eustachian tube dysfunction, unspecified laterality H69.80 Active 85957740 Problem Chronic pain G89.29 Active 9310531 1 Problem DM neuro manif type II E11.49 Active 44423689 Problem Diabetes E11.9 Active 68251425 Problem Leukocytosis D72.829 Active 0005651 06 Problem Falling R29.6 Active 901817476 Problem Pressure ulcer of other site, stage 3 L89.893 Active 958594241 Problem 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 Active 892295888 Problem Eye exam abnormal R93.8 Active 16 9515658 Problem Dysuria R30.0 Active 00424957 Problem Hypokalemia E87.6 Active 88516312 Problem Morbid obesity E66.01 Active 25374 6002 Problem Anxiety F41.9 Active 54706369 Problem Diabetic polyneuropathy associated with type 2 d iabetes mellitus E11.42 Active 85832624 Problem Essential hypertension I10 Active 88670851 Problem Bilateral primary osteoarthritis of knee M17.0 Active 932870070 Problem Polyneuropathy associated with underlying disease G63 Active 956038981 Problem Anemia of chronic illness D63.8 Acti ve 602104541 Problem Lymphocytosis D72.820 Active 068818 09 Problem Retinal edema H35.81 Active 815267 6 Problem Chronic lymphocytic leukemia C91.10 A ctive 83608530 Problem Bipolar disorder, in partial remission, most rec ent episode depressed F31.75 Active 40104597 Problem Pure hypercholesterolemia E78.00 Acti ve 833117698 Problem Primary osteoarthritis of right knee M17.11 Active 046238169137878 Problem Bipolar disorder F31.9 Active 137 16045 Problem Bipolar I disorder, most recent episode (or curr ent) mixed, moderate F31.62 Active 73174663 Problem Chronic diastolic (congestive) heart failure I50.3 2 Active 005052247 Problem Reactive airway disease J45.909 Active 035970755714 Problem Insomnia, unspecified type G47.00 Act sharon 736266907 Problem Other chronic pain G89.29 Active 8 4095071 Problem Other iron deficiency anemia D50.8 A ctive 14471978 Problem Mild cognitive impairment G31.84 Acti ve 460998769 Problem Skin cancer C44.90 Active 96462108 7 ALLERGIES No Information ENCOUNTERS Encounter Location Date Diagnosis [place] [address] [address] [facility] [id number] [address] [place] [address] Mar, [place] [address] [address] [place] [id number] [address] [place] [address] Mar, [place] [address] [address] [facility] [id number] [address] [place] [address] Feb, Bipolar disorder F31.9 [place] [address] [address] [facility] [id number] [address] [place] [address] Feb, Cellulitis of right upper ex tremity L03.113 and Skin abrasion T14.8XXA [place] [address] [address] [facility] [id number] [address] [place] [address] Feb, Bipolar disorder, in partial remission, most recent episode depressed F31.75 and Mild cognitive impairment G31.84 [place] [address] [facility] [id number] [address] [place] [address] Feb, Chronic pain G89.29 [place] [address] [address] [facility] [id number] [address] [place] [address] Feb, Bipolar disorder, in partial remission, most recent episode depressed F31.75 and Mild cognitive impairment G31.84 [place] [address] [address] [facility] [id number] [address] [place] [address] January, Bipolar disorder, in partial remission, most recent episode depressed F31.75 and Mild cognitive impairment G31.84 [facility] [address] [id number] [address] [place] [address] January, Chronic pain G89.29 and Bipo lar disorder F31.9 [facility] [address] [id number] [address] [place] [address] January, Bipolar disorder, in partial remission, most recent episode depressed F31.75 and Mild cognitive impairment G31.84 [facility] [address] [id number] [address] [place] [address] Dec, [facility] [address] [id number] [address] [place] [address] Dec, Chronic pain G89.29 and Bipo lar disorder F31.9 [facility] [address] [id number] [address] [place] [address] Dec, Edema of both lower extremit ies R60.0 [facility] [address] [id number] [address] [place] [address] Dec, Bipolar disorder F31.9 [facility] [address] [id number] [address] [place] [address] Dec, Bipolar disorder, in partial remission, most recent episode depressed F31.75 and Mild cognitive impairment G31.84 [facility] [address] [id number] [address] [place] [address] Nov, [facility] [address] [id number] [address] [place] [address] Nov, Chronic pain G89.29 [facility] [address] [id number] [address] [place] [address] Nov, Bipolar disorder, in partial remission, most recent episode depressed F31.75 and Mild cognitive impairment G31.84 [facility] [address] [id number] [address] [place] [address] Nov, Bipolar disorder F31.9 [place] [address] [address] [place] [id number] [address] [place] [address] 04 Nov, 2018 Encounter for Medicare hilary [...] unspecified morphology N40.1 and Essential hypertension I10 [address] [address] 21 Oct, 2018 Chronic pain G89.[address] [address] 18 Oct, 2018 Diabetes E11.9 [place] [address] [address] [place] [id number] [address] [place] [address] Oct, Bipolar I disorder, most rec ent episode (or current) mixed, moderate F31.62 and Mild cognitive impairment G31.84 [place] [id number] [place] [address] Oct, Bipolar I disorder, most rec ent episode (or current) mixed, moderate F31.62 and Mild cognitive impairment G31.84 [place] [address] [address] [place] [id number] [address] [place] [address] Sep, Bipolar I disorder, most rec ent episode (or current) mixed, moderate F31.62 and Mild cognitive impairment G31.84 [place] [id number] [address] [place] [address] Sep, [place] [id number] [address] [place] [address] Sep, Diabetes E11.9 ; Hypoxia R09 .02 ; Hyperglycemia R73.9 ; Therapeutic drug monitoring Z51.81 ; BMI 50.0-59.9, adult Z68.43 and Skin cancer C44.90 [place] [address] [address] [facility] [id number] [address] [place] [address] Sep, Chronic pain G89.29 [facility] [address] [facility] [id number] [address] [place] [address] Sep, Bipolar I disorder, most rec ent episode (or current) mixed, moderate F31.62 [facility] [address] [facility] [id number] [address] [place] [address] Sep, [place] [address] [address] [facility] [id number] [address] [place] [address] Sep, [facility] [address] [facility] [id number] [address] [place] [address] Aug, Chronic pain G89.29 [place] [address] [address] [facility] [id number] [address] [place] [address] Aug, Bipolar I disorder, most rec ent episode (or current) mixed, moderate F31.62 [place] [address] [address] [facility] [id number] [address] [place] [address] Aug, Bipolar I disorder, most rec ent episode (or current) mixed, moderate F31.62 and Mild cognitive impairment G31.84 [place] [address] [address] [facility] [id number] [address] [place] [address] Jul, [place] [address] [address] [facility] [id number] [address] [place] [address] Jul, Chronic pain G89.29 [place] [address] [address] [facility] [id number] [address] [place] [address] Jul, Bipolar I disorder, most rec ent episode (or current) mixed, moderate F31.62 and Mild cognitive impairment G31.84 [place] [address] [facility] [id number] [address] [place] [address] Jul, Bipolar I disorder, most rec ent episode (or current) mixed, moderate F31.62 and MCI (mild cognitive impairment) G31.84 [facility] [address] [id number] [address] [place] [address] Jul, [facility] [address] [id number] [address] [place] [address] Jul, [facility] [address] [facility] [id number] [address] [place] [address] Jul, Bipolar I disorder, most rec ent episode (or current) mixed, moderate F31.62 [facility] [address] [id number] [address] [place] [address] Jul, Chronic pain G89.29 [facility] [address] [facility] [id number] [address] [place] [address] Jun, Bipolar I disorder, most rec ent episode (or current) mixed, moderate F31.62 [place] [address] [address] [facility] [id number] [address] [place] [address] Jun, Pre-procedure lab exam Z01.8 12 [facility] [address] [id number] [place] [address] [id number] Jun, [facility] [address] [facility] [id number] [address] [place] [address] Jun, [facility] [address] [facility] [id number] [address] [place] [address] Jun, [facility] [address] [facility] [id number] [address] [place] [address] Jun, Forgetfulness R68.89 ; Pre-s yncope R55 ; Localized edema R60.0 ; Other iron deficiency anemia D50.8 and BMI 50.0-59.9, adult Z68.43 [facility] [address] [id number] [address] [place] [address] Jun, Chronic pain G89.29 [facility] [address] [facility] [id number] [address] [place] [address] Jun, Chronic pain G89.29 [facility] [address] [facility] [id number] [address] [place] [address] Jun, Bipolar I disorder, most rec ent episode (or current) mixed, moderate F31.62 [facility] [address] [facility] [id number] [address] [place] [address] May, Chronic pain G89.29 [facility] [address] [facility] [id number] [address] [place] [address] Apr, [facility] [address] [facility] [id number] [address] [place] [address] Apr, Chronic pain G89.29 [place] [address] [address] [facility] [id number] [address] [place] [address] Apr, Primary osteoarthritis of ri ght knee M17.11 [place] [address] [address] [facility] [id number] [address] [place] [address] Mar, [place] [address] [address] [facility] [id number] [address] [place] [address] Mar, BMI 50.0-59.9, adult Z68.43 and Bipolar disorder, in partial remission, most recent episode depressed F31.75 [place] [address] [address] [place] [id number] [address] [place] [address] Mar, Diabetes E11.9 ; Pure hyperc holesterolemia E78.00 ; Essential hypertension I10 ; Nausea with vomiting, unspecified R11.2 and Headache, unspecified headache type R51 [place] [address] [facility] [id number] [address] [place] [address] Mar, Bipolar I disorder, most rec ent episode (or current) mixed, moderate F31.62 [place] [address] [address] [facility] [id number] [address] [place] [address] Mar, Bipolar I disorder, most rec ent episode (or current) mixed, moderate F31.62 [place] [address] [address] [place] [id number] [address] [place] [address] 13 Mar, 2018 Chronic pain G89.29 [facility] [address] [id number] [address] [place] [address] Mar, Bipolar I disorder, most rec ent episode (or current) mixed, moderate F31.62 [facility] [address] [facility] [id number] [address] [place] [address] Feb, Bipolar I disorder, most rec ent episode (or current) mixed, moderate F31.62 [facility] [address] [facility] [id number] [address] [place] [address] 14 Feb, 2018 Chronic pain G89.29 [facility] [address] [facility] [id number] [address] [place] [address] Feb, Decubitus ulcer of right josselin t, stage 3 L89.893 and BMI 50.0-59.9, adult Z68.43 [facility] [address] [place] [id number] [address] [place] [address] Feb, Bipolar I disorder, most rec ent episode (or current) mixed, moderate F31.62 [facility] [address] [facility] [id number] [address] [place] [address] Feb, [facility] [address] [facility] [id number] [address] [place] [address] January, [facility] [address] [facility] [id number] [address] [place] [address] January, Chronic pain G89.29 [facility] [address] [facility] [id number] [address] [place] [address] January, Bipolar I disorder, most rec ent episode (or current) mixed, moderate F31.62 [facility] [address] [facility] [id number] [address] [place] [address] January, Bipolar I disorder, most rec ent episode (or current) mixed, moderate F31.62 [facility] [address] [facility] [id number] [address] [place] [address] Dec, Bipolar I disorder, most rec ent episode (or current) mixed, moderate F31.62 and BMI 50.0-59.9, adult Z68.43 [place] [address] [address] [place] [id number] [address] [place] [address] Dec, Bipolar I disorder, most rec ent episode (or current) mixed, moderate F31.62 [place] [address] [address] [place] [id number] [place] [address] Dec, Chronic pain G89.29 [place] [address] [address] [place] [id number] [place] [address] Dec, DM neuro manif type II E11.4 9 ; Right flank pain R10.9 ; 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 ; Encounter for medication monitoring Z51.81 and BMI 50.0-59.9, adult Z68.43 [place] [address] [address] Dec, Bipolar I disorder, most rec ent episode (or current) mixed, moderate F31.62 [place] [address] [address] Nov, Bipolar I disorder, most rec ent episode (or current) mixed, moderate F31.62 [place] [address] [address] [place] [id number] [address] [place] [address] Nov, Chronic pain G89.29 [place] [address] [address] [place] [id number] [address] [place] [address] Nov, Bipolar I disorder, most rec ent episode (or current) mixed, moderate F31.62 [place] [address] [address] [place] [id number] [address] [place] [address] Nov, Hypokalemia E87.6 [place] [address] [address] [place] [id number] [address] [place] [address] Nov, Bipolar I disorder, most rec ent episode (or current) mixed, moderate F31.62 [facility] [address] [facility] [id number] [address] [place] [address] Oct, Chronic pain G89.29 [facility] [address] [place] [id number] [address] [place] [address] Oct, BMI 50.0-59.9, adult Z68.43 and Bipolar I disorder, most recent episode (or current) mixed, moderate F31.62 [facility] [address] [place] [id number] [place] [address] Oct, Bipolar I disorder, most rec ent episode (or current) mixed, moderate F31.62 [place] [address] [address] [place] [id number] [place] [address] Oct, [place] [address] [address] Oct, Hypokalemia E87.6 [place] [address] [address] [place] [id number] [place] [address] Oct, DM neuro manif type II E11.4 9 [place] [address] [address] [place] [id number] [place] [address] Oct, Bipolar I disorder, most rec ent episode (or current) mixed, moderate F31.62 [place] [address] [address] [place] [id number] [address] [place] [address] Oct, Bipolar I disorder, most rec ent episode (or current) mixed, moderate F31.62 [place] [address] [address] [place] [id number] [address] [place] [address] 14 Oct, 2017 Hyperkalemia E87.5 ; Falling R29.6 ; BMI 50.0-59.9, adult Z68.43 and Acute left ankle pain M25.572 [place] [address] [address] [place] [id number] [address] [place] [address] Oct, DM neuro manif type II E11.4 9 [place] [address] [address] [place] [id number] [address] [place] [address] Oct, [place] [address] [address] Sep, Chronic pain G89.29 [facility] [address] [place] [id number] [place] [address] Sep, [place] [address] [address] Sep, Bilateral primary osteoarthr itis of knee M17.[address] [address] Sep, Generalized edema R60.1 [place] [address] [address] [place] [id number] [place] [address] Sep, Bipolar I disorder, most rec ent episode (or current) mixed, moderate F31.62 [place] [address] [address] Sep, Hypoxia R09.02 ; Other hyper volemia E87.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 ; Anemia of chronic illness D63.8 and BMI 50.0- 59.9, adult Z68.43 [place] [address] [address] Sep, [place] [address] [address] Sep, Bipolar I disorder, most rec ent episode (or current) mixed, moderate F31.62 [place] [address] [address] [place] [id number] [place] [address] Aug, Chronic pain G89.29 [place] [address] [address] [place] [id number] [address] [place] [address] Aug, Generalized edema R60.1 [facility] [address] [facility] [id number] [address] [place] [address] 18 Aug, 2017 [place] [address] [facility] [id number] [address] [place] [address] 18 Aug, 2017 [facility] [address] [facility] [id number] [address] [place] [address] 14 Aug, 2017 Bipolar I disorder, most rec ent episode (or current) mixed, moderate F31.62 [place] [address] [facility] [id number] [address] [place] [address] Aug, Bipolar I disorder, most rec ent episode (or current) mixed, moderate F31.62 [place] [address] [facility] [id number] [address] [place] [address] 04 Aug, 2017 Chronic pain G89.29 [place] [address] [address] [place] [id number] [address] [place] [address] Jul, Bipolar I disorder, most rec ent episode (or current) mixed, moderate F31.62 [place] [address] [address] [place] [id number] [address] [place] [address] Jul, Bipolar I disorder, most rec ent episode (or current) mixed, moderate F31.62 and BMI 60.0-69.9, adult Z68.44 [place] [address] [address] [place] [id number] [address] [place] [address] 16 Jul, 2017 Bipolar I disorder, most rec ent episode (or current) mixed, moderate F31.62 [place] [address] [facility] [id number] [address] [place] [address] 06 Jul, 2017 Chronic pain G89.29 [place] [address] [facility] [id number] [address] [place] [address] 02 Jul, 2017 Bipolar I disorder, most rec ent episode (or current) mixed, moderate F31.62 [place] [address] [facility] [id number] [address] [place] [address] Jun, Polyneuropathy associated wi th underlying disease G63 and Diabetes E11.9 [facility] [address] [id number] [address] [place] [address] 16 Jun, 2017 Bipolar I disorder, most rec ent episode (or current) mixed, moderate F31.62 [facility] [address] [id number] [address] [place] [address] 09 Jun, 2017 Chronic pain G89.29 [facility] [address] [id number] [address] [place] [address] May, Bipolar I disorder, most rec ent episode (or current) mixed, moderate F31.62 [place] [address] [id number] [address] [place] [address] May, Bipolar I disorder, most rec ent episode (or current) mixed, moderate F31.62 [facility] [address] [facility] [id number] [address] [place] [address] May, Diabetic polyneuropathy asso ciated with type 2 diabetes mellitus E11.42 [facility] [address] [id number] [address] [place] [address] 18 May, 2017 Bipolar I disorder, most rec ent episode (or current) mixed, moderate F31.62 [facility] [address] [facility] [id number] [address] [place] [address] 13 May, 2017 Bipolar I disorder, most rec ent episode (or current) mixed, moderate F31.62 [place] [address] [id number] [address] [place] [address] May, Chronic pain G89.29 [facility] [address] [id number] [address] [place] [address] Apr, Bipolar I disorder, most rec ent episode (or current) mixed, moderate F31.62 [facility] [address] [id number] [address] [place] [address] Apr, [facility] [address] [id number] [address] [place] [address] Apr, Chronic pain G89.29 and DM n euro manif type II E11.49 [facility] [address] [id number] [address] [place] [address] Apr, [facility] [address] [facility] [id number] [address] [place] [id number] Apr, Bipolar I disorder, most rec ent episode (or current) mixed, moderate F31.62 [facility] [address] [id number] [address] [place] [id number] Apr, Chronic pain G89.29 [facility] [address] [id number] [address] [place] [id number] Apr, Iliotibial band syndrome, le ft M76.32 [facility] [address] [facility] [id number] [address] [place] [id number] Apr, Bipolar I disorder, most rec ent episode (or current) mixed, moderate F31.62 [facility] [address] [facility] [id number] [address] [place] [address] Mar, Bipolar I disorder, most rec ent episode (or current) mixed, moderate F31.62 [facility] [address] [id number] [address] [place] [address] Mar, Bipolar I disorder, most rec ent episode (or current) mixed, moderate F31.62 [facility] [address] [facility] [id number] [address] [place] [address] Mar, [facility] [address] [facility] [id number] [address] [place] [address] Mar, Bipolar I disorder, most rec ent episode (or current) mixed, moderate F31.62 [facility] [address] [facility] [id number] [address] [place] [address] Mar, Chronic pain G89.29 [facility] [address] [facility] [id number] [address] [place] [address] Mar, Bipolar I disorder, most rec ent episode (or current) mixed, moderate F31.62 [facility] [address] [id number] [address] [place] [address] Mar, Bipolar I disorder, most rec ent episode (or current) mixed, moderate F31.62 [facility] [address] [facility] [id number] [address] [place] [address] Mar, Acute pain of left knee M25. 562 ; Left hip pain M25.552 ; Generalized edema R60.1 and Tongue swelling R22.0 [facility] [address] [id number] [address] [place] [address] Mar, [facility] [address] [facility] [id number] [address] [place] [address] Feb, Chronic pain G89.29 [facility] [address] [facility] [id number] [address] [place] [address] Feb, Diabetes E11.9 [facility] [address] [facility] [id number] [address] [place] [address] January, Chronic pain G89.29 [facility] [address] [id number] [address] [place] [address] January, [facility] [address] [facility] [id number] [address] [place] [address] January, Bipolar I disorder, most rec ent episode (or current) mixed, moderate F31.62 [facility] [address] [facility] [id number] [address] [place] [address] Dec, Bipolar I disorder, most rec ent episode (or current) mixed, moderate F31.62 [facility] [address] [id number] [address] [place] [address] Dec, Chronic pain G89.29 [facility] [address] [facility] [id number] [address] [place] [address] Dec, Bipolar I disorder, most rec ent episode (or current) mixed, moderate F31.62 [facility] [address] [facility] [id number] [address] [place] [address] Dec, Diabetes E11.9 ; Essential h ypertension I10 ; Chronic pain G89.29 and Morbid obesity E66.01 [facility] [address] [facility] [id number] [address] [place] [address] Dec, [facility] [address] [facility] [id number] [address] [place] [address] Dec, Bipolar I disorder, most rec ent episode (or current) mixed, moderate F31.62 [facility] [address] [facility] [id number] [address] [place] [address] Dec, Bipolar I disorder, most rec ent episode (or current) mixed, moderate F31.62 [facility] [address] [place] [id number] [address] [place] [address] Nov, Chronic pain G89.29 [facility] [address] [facility] [id number] [address] [place] [address] Nov, Bipolar I disorder, most rec ent episode (or current) mixed, moderate F31.62 [facility] [address] [facility] [id number] [address] [place] [address] Nov, [facility] [address] [place] [id number] [address] [place] [address] Nov, Bipolar I disorder, most rec ent episode (or current) mixed, moderate F31.62 [facility] [address] [facility] [id number] [address] [place] [address] Nov, Bipolar I disorder, most rec ent episode (or current) mixed, moderate F31.62 [facility] [address] [facility] [id number] [address] [place] [address] Nov, [facility] [address] [facility] [id number] [address] [place] [address] Nov, [facility] [address] [place] [id number] [address] [place] [address] Nov, [facility] [address] [facility] [id number] [address] [place] [address] Oct, Chronic pain G89.29 [facility] [address] [facility] [id number] [address] [place] [address] Oct, Bipolar I disorder, most rec ent episode (or current) mixed, moderate F31.62 [facility] [address] [facility] [id number] [address] [place] [address] Oct, [facility] [address] [facility] [id number] [address] [place] [address] Oct, Chronic pain G89.29 ; Diabet es E11.9 ; Anxiety F41.9 and 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 [facility] [address] [facility] [id number] [address] [place] [address] Oct, [facility] [address] [facility] [id number] [address] [place] [address] Oct, Diabetes E11.9 [facility] [address] [facility] [id number] [address] [place] [address] Oct, Bipolar I disorder, most rec ent episode (or current) mixed, moderate F31.62 [facility] [address] [facility] [id number] [address] [place] [address] Sep, Chronic pain G89.29 [facility] [address] [facility] [id number] [address] [place] [address] Sep, Chronic pain G89.29 [facility] [address] [facility] [id number] [address] [place] [address] Aug, Chronic pain G89.29 [facility] [address] [facility] [id number] [address] [place] [address] Jul, [facility] [address] [facility] [id number] [address] [place] [address] Jul, Diabetes E11.9 [facility] [address] [facility] [id number] [address] [place] [address] Jul, Chronic pain G89.29 [place] [address] [facility] [id number] [address] [place] [address] Jul, Bipolar I disorder, most rec ent episode (or current) mixed, moderate F31.62 [place] [address] [facility] [id number] [address] [place] [address] Jun, Bipolar I disorder, most rec ent episode (or current) mixed, moderate F31.62 [place] [address] [facility] [id number] [address] [place] [address] Jun, [place] [address] [facility] [id number] [address] [place] [address] Jun, Bipolar I disorder, most rec ent episode (or current) mixed, moderate F31.62 [place] [address] [facility] [id number] [address] [place] [address] May, Insomnia, unspecified type G 47.00 [place] [address] [facility] [id number] [address] [place] [address] May, Bipolar I disorder, most rec ent episode (or current) mixed, moderate F31.62 [place] [address] [facility] [id number] [address] [place] [address] 14 May, 2016 [place] [address] [facility] [id number] [address] [place] [address] 08 May, 2016 Bipolar I disorder, most rec ent episode (or current) mixed, moderate F31.62 [place] [address] [facility] [id number] [address] [place] [address] 06 May, 2016 Diabetes E11.9 and Essential hypertension I10 [place] [address] [facility] [id number] [address] [place] [address] Apr, Chronic pain G89.29 [place] [address] [facility] [id number] [address] [place] [address] Apr, Bipolar I disorder, most rec ent episode (or current) mixed, moderate F31.62 [facility] [address] [id number] [address] [place] [address] Apr, [facility] [address] [id number] [address] [place] [address] Apr, [facility] [address] [facility] [id number] [address] [place] [address] Mar, Chronic pain G89.29 ; Headac he, unspecified headache type R51 ; Neuropathy G62.9 ; Pain of right hip joint M25.551 and Essential hypertension I10 [place] [address] [id number] [address] [place] [address] Mar, Chronic pain G89.29 [place] [address] [facility] [id number] [address] [place] [address] Mar, Bipolar I disorder, most rec ent episode (or current) mixed, moderate F31.62 [facility] [address] [id number] [address] [place] [address] Feb, Bipolar I disorder, most rec ent episode (or current) mixed, moderate F31.62 and Insomnia, unspecified type G47.00 [place] [id number] [facility] [id number] [address] [place] [address] Feb, Chronic pain G89.29 [facility] [address] [id number] [address] [place] [address] Feb, Bipolar I disorder, most rec ent episode (or current) mixed, moderate F31.62 [place] [address] [id number] [address] [place] [address] January, Bipolar I disorder, most rec ent episode (or current) mixed, moderate F31.62 [place] [address] [facility] [id number] [address] [place] [address] January, Chronic pain G89.29 [place] [address] [address] January, Chronic pain G89.29 and Esse ntial hypertension I10 [facility] [address] [address] January, Bipolar I disorder, most rec ent episode (or current) mixed, moderate F31.62 [facility] [address] [address] Dec, [facility] [address] [address] Dec, [facility] [address] [address] Dec, [facility] [address] [address] Dec, [facility] [address] [address] Nov, Reactive airway disease J45. 909 [facility] [address] [address] Nov, [facility] [address] [address] Nov, [facility] [address] [address] Nov, [facility] [address] [address] Nov, [facility] [address] [address] Nov, Onychomycosis B35.1 ; Hammer toe M20.40 ; [place] or callus L84 and DM neuro manif type II E11.49 [facility] [address] [place] [id number] [address] [place] [address] 15 Nov, 2015 Chronic pain G89.29 ; Leukoc ytosis D72.829 and Diabetes E11.9 [facility] [address] [address] Nov, [facility] [address] [address] Oct, Bronchitis J40 [facility] [address] [address] Oct, [facility] [address] [address] Oct, [place] [address] [address] Oct, Mastoiditis, unspecified lat erality H70.90 and Type 2 diabetes mellitus with complication E11.8 [place] [address] [address] Sep, [place] [address] [address] Sep, Dysuria R30.0 ; Cough R05 ; Benign prostatic hyperplasia with lower urinary tract symptoms, unspecified morphology N40.1 ; Hypokalemia E87.6 and Eustachian tube dysfunction, unspecified laterality H69.80 [place] [address] [address] Sep, Moderate mixed bipolar I dis order F31.62 [place] [address] [address] Sep, Hypokalemia E87.6 [place] [address] [address] Sep, [place] [address] [address] Sep, Upper respiratory tract infe ction, unspecified type J06.9 [place] [address] [address] Aug, [place] [address] [id number] [address] [place] [address] Aug, Dysuria R30.0 [facility] [address] [id number] [address] [place] [address] Aug, [facility] [address] [id number] [address] [place] [address] Jul, [facility] [address] [id number] [address] [place] [address] Jul, [facility] [address] [id number] [address] [place] [address] Jul, [facility] [address] [id number] [address] [place] [address] Jul, [facility] [address] [id number] [address] [place] [address] Jun, [facility] [address] [id number] [address] [place] [address] Jun, [facility] [address] [id number] [address] [place] [address] Jun, [facility] [address] [id number] [address] [place] [address] May, [facility] [address] [id number] [address] [place] [address] May, Bipolar I disorder, most rec ent episode (or current) mixed, moderate 296.62 [facility] [address] [id number] [address] [place] [address] 16 May, 2015 [facility] [address] [id number] [address] [place] [address] May, Bipolar I disorder, most rec ent episode (or current) mixed, moderate 296.62 and Major depressive disorder, recurrent episode, severe, specified as with psychotic behavior 296.34 [facility] [address] [id number] [address] [place] [address] May, Bipolar I disorder, most rec ent episode (or current) mixed, moderate 296.62 [facility] [address] [id number] [address] [place] [address] May, [facility] [address] [facility] [id number] [address] [place] [address] Apr, [facility] [address] [facility] [id number] [address] [place] [address] Apr, [facility] [address] [facility] [id number] [address] [place] [address] Apr, Unspecified disorder of kidn ey and ureter 593.9 and Diabetes mellitus type 2, uncontrolled 250.02 [facility] [address] [facility] [id number] [address] [place] [address] Apr, [facility] [address] [facility] [id number] [address] [place] [address] Apr, [facility] [address] [place] [id number] [address] [place] [address] Apr, [facility] [address] [id number] [address] [place] [address] Apr, [facility] [address] [facility] [id number] [address] [place] [address] Apr, Diabetes mellitus type II, u ncontrolled 250.02 [facility] [address] [facility] [id number] [address] [place] [address] Apr, [facility] [address] [id number] [address] [place] [address] Mar, [facility] [address] [facility] [id number] [address] [place] [address] Mar, [facility] [address] [facility] [id number] [address] [place] [address] Mar, [facility] [address] [facility] [id number] [address] [place] [address] Mar, Major depressive disorder, r ecurrent episode, severe, specified as with psychotic behavior 296.34 and Bipolar I disorder, most recent episode (or current) mixed, moderate 296.62 [facility] [address] [address] Mar, Diabetes 250.00 ; Anuria 788 .5 ; Nausea and vomiting 787.01 and Diarrhea 787.91 [facility] [address] [address] Mar, Diabetes 250.00 [facility] [address] [address] Mar, [facility] [address] [address] Mar, Diabetes 250.00 [facility] [address] [address] Mar, [facility] [address] [address] Mar, [facility] [address] [address] Mar, [facility] [address] [address] Mar, [facility] [address] [address] Mar, Bipolar I disorder, most rec ent episode (or current) mixed, moderate 296.62 and Major depressive disorder, recurrent episode, severe, specified as with psychotic behavior 296.34 [facility] [address] [address] Mar, Magnesium deficiency 275.2 ; Hypokalemia 276.8 ; Nausea & vomiting 787.01 and Diabetes mellitus type 2, uncontrolled 250.02 [facility] [address] [place] [id number] [place] [address] Feb, [facility] [address] [address] Feb, Bipolar I disorder, most rec ent episode (or current) mixed, moderate 296.62 [place] [address] [address] Feb, Nausea and vomiting 787.01 ; Left elbow pain 719.42 ; Anuria 788.5 and Diabetes 250.00 [place] [address] [address] Feb, [place] [address] [address] Feb, Hypopotassemia 276.8 and Hyp okalemia 276.8 [place] [address] [address] Feb, Hypopotassemia 276.8 and Hyp okalemia 276.8 [place] [address] [address] Feb, Seborrheic keratoses 702.19 [place] [address] [address] Feb, Hypopotassemia 276.8 and Low magnesium levels 275.2 [place] [address] [address] January, [place] [address] [address] January, [facility] [address] [address] January, [place] [address] [address] January, Scalp lesion 709.9 [place] [address] [address] January, [facility] [address] [address] 30 Dec, 2014 Tear of medial cartilage or meniscus of knee, current 836.0 and 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 [facility] [address] [id number] [address] [place] [address] Dec, [facility] [address] [id number] [address] [place] [address] Dec, [facility] [address] [id number] [address] [place] [address] Dec, Squamous cell carcinoma, 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 [facility] [address] [id number] [address] [place] [address] 14 Dec, 2014 [facility] [address] [id number] [address] [place] [address] Dec, [facility] [address] [id number] [address] [place] [address] Nov, [facility] [address] [id number] [address] [place] [address] Nov, [facility] [address] [id number] [address] [place] [address] Nov, [facility] [address] [id number] [address] [place] [address] Nov, [facility] [address] [id number] [address] [place] [address] Nov, [facility] [address] [id number] [address] [place] [address] Nov, [facility] [address] [id number] [address] [place] [address] Nov, [facility] [address] [id number] [address] [place] [address] Nov, [facility] [address] [id number] [address] [place] [address] Nov, [facility] [address] [id number] [address] [place] [address], [place] [address] Nov, [facility] [address] [id number] [address] [place] [address], [place] [address] Nov, [facility] [address] [id number] [address] [place] [address], [place] [address] Nov, [facility] [address] [id number] [address] [place] [address], [place] [address] Oct, 2014 [facility] [address] [id number] [address] [place] [address], [place] [id number] Oct, 2014 [facility] [address] [id number] [address] [place] [address], [place] [address] Oct, 2014 [facility] [address] [id number] [address] [place] [address], [place] [address] Oct, 2014 [facility] [address] [id number] [address] [place] [id number] Oct, [facility] [address] [id number] [address] [place] [address], [place] [address] Oct, [facility] [address] [id number] [address] [place] [id number] Oct, [facility] [address] [id number] [address] [place] [id number] Oct, [facility] [address] [id number] [address] [place] [id number] Oct, [facility] [address] [id number] [address] [place] [id number] Sep, [facility] [address] [id number] [address] [place] [id number] Sep, [facility] [address] [id number] [address] [place] [id number] Sep, [facility] [address] [id number] [address] [place] [id number] Sep, [facility] [address] [id number] [address] [place] [address], [place] [id number] Sep, [facility] [address] [id number] [address] [place] [address], [place] [id number] Sep, [facility] [address] [id number] [address] [place] [address], [place] [id number] Sep, [facility] [address] [id number] [address] [place] [address], [place] [address] Sep, [facility] [address] [id number] [address] [place] [address], [place] [address] Sep, [facility] [address] [id number] [address] [place] [address], [place] [id number] Sep, [facility] [address] [id number] [address] [place] [address], [place] [id number] Sep, [facility] [address] [id number] [address] [place] [address], [place] [id number] Sep, [facility] [address] [id number] [address] [place] [address], [place] [address] Sep, [facility] [address] [id number] [address] [place] [address], [place] [address] Sep, [facility] [address] [id number] [address] [place] [address], [place] [address] Sep, [facility] [address] [id number] [address] [place] [address], [place] [address] Sep, [facility] [address] [id number] [address] [place] [address], [place] [address] Aug, [facility] [address] [id number] [address] [place] [address], [place] [address] Aug, [facility] [address] [id number] [address] [place] [address], [place] [address] Aug, [facility] [address] [id number] [facility] [place] [address] Aug, [facility] [address] [id number] [facility] [place] [address] Aug, [facility] [address] [id number] [facility] [place] [address] Aug, [facility] [address] [id number] [facility] [place] [address] Aug, [facility] [address] [id number] [facility] [place] [address] Aug, [facility] [address] [id number] [address] [place] [address], [place] [address] Aug, [facility] [address] [id number] [address] [place] [address], [place] [address] Aug, [facility] [address] [id number] [address] [place] [address], [place] [address] Aug, [facility] [address] [place] [id number] Aug, [facility] [address] [id number] [address] [place] [address], [place] [address] Aug, [facility] [address] [id number] [address] [place] [address], [place] [address] Aug, [facility] [address] [id number] [address] [place] [address], [place] [address] Aug, [facility] [address] [id number] [address] [place] [address], [place] [address] Aug, [facility] [address] [id number] [address] [place] [address], [place] [address] Aug, [facility] [address] [id number] [facility] [place] [address] Aug, [facility] [address] [id number] [address] [place] [address], [place] [address] Aug, [facility] [address] [id number] [address] [place] [address], [place] [address] Aug, [facility] [address] [id number] [address] [place] [address], [place] [address] Aug, [facility] [address] [id number] [address] [place] [address], [place] [address] Aug, [facility] [address] [id number] [address] [place] [address], [place] [address] Aug, [facility] [address] [id number] [address] [place] [address], [place] [address] Aug, [facility] [address] [id number] [address] [place] [address], [place] [address] Aug, [facility] [address] [id number] [address] [place] [address], [place] [address] Aug, [facility] [address] [id number] [address] [place] [address], [place] [address] Aug, [facility] [address] [id number] [address] [place] [address], [place] [address] Aug, [facility] [address] [id number] [address] [place] [address], [place] [address] Aug, [facility] [address] [id number] [address] [place] [address], [place] [address] Aug, [facility] [address] [id number] [address] [place] [address], [place] [address] Jul, [facility] [address] [id number] [address] [place] [address], [place] [address] Jul, [facility] [address] [id number] [address] [place] [address], [place] [address] Jul, [facility] [address] [id number] [address] [place] [address], [place] [address] Jul, [facility] [address] [id number] [address] [place] [address] Jul, [facility] [address] [id number] [address] [place] [address], [place] [address] Jul, [facility] [address] [id number] [address] [place] [address] Jul, [facility] [address] [id number] [address] [place] [address], [place] [address] Jul, [facility] [address] [id number] [address] [place] [address] Jul, [facility] [address] [id number] [address] [place] [address], [place] [address] Jul, [facility] [address] [id number] [address] [place] [address], [place] [address] Jun, [facility] [address] [id number] [address] [place] [address] Jun, [facility] [address] [id number] [address] [place] [address] Jun, [facility] [address] [id number] [address] [place] [address] Jun, [facility] [address] [id number] [address] [place] [address] Jun, [facility] [address] [id number] [address] [place] [address] Jun, [facility] [address] [id number] [address] [place] [address] Jun, [facility] [address] [id number] [address] [place] [address] Jun, [facility] [address] [id number] [address] [place] [address] Jun, [facility] [address] [id number] [address] [place] [address] Jun, [facility] [address] [id number] [facility] [place] [address] 29 Sep, 2013 [facility] [address] [id number] [facility] [place] [address] 29 Sep, 2013 [facility] [address] [id number] [facility] [place] [address] 26 Sep, 2013 [facility] [address] [id number] [address] [place] [address], [place] [address] 26 Sep, 2013 [facility] [address] [id number] [address] [place] [address], [place] [address] 17 Sep, 2013 [facility] [address] [id number] [address] [place] [address], [place] [address] 17 Sep, 2013 [facility] [address] [id number] [address] [place] [address], [place] [address] 15 Sep, 2013 [facility] [address] [id number] [address] [place] [address], [place] [address] 15 Sep, 2013 [facility] [address] [id number] [address] [place] [address], [place] [address] 15 Sep, 2013 [facility] [address] [id number] [address] [place] [address], [place] [address] 15 Sep, 2013 [facility] [address] [id number] [address] [place] [address], [place] [address] 10 Sep, 2013 [facility] [address] [id number] [address] [place] [address], [place] [address] 10 Sep, 2013 [facility] [address] [id number] [address] [place] [address], [place] [address] 09 Sep, 2013 [facility] [address] [id number] [address] [place] [address], [place] [address] 09 Sep, 2013 [facility] [address] [id number] [address] [place] [address], [place] [address] 04 Sep, 2013 [facility] [address] [id number] [address] [place] [address], [place] [address] May, [facility] [address] [id number] [facility] [place] [address] Apr, [facility] [address] [id number] [address] [place] [address], [place] [address] Apr, [facility] [address] [id number] [address] [place] [address], [place] [address] Apr, [facility] [address] [id number] [address] [place] [address], [place] [address] Apr, [facility] [address] [id number] [address] [place] [address], [place] [address] Apr, [facility] [address] [id number] [address] [place] [address], [place] [address] Apr, [facility] [address] [id number] [address] [place] [address], [place] [address] Apr, [facility] [address] [id number] [address] [place] [address], [place] [address] Apr, [facility] [address] [id number] [address] [place] [address], [place] [address] Apr, [facility] [address] [id number] [address] [place] [address], [place] [address] Apr, [facility] [address] [id number] [address] [place] [address], [place] [address] Apr, [facility] [address] [id number] [address] [place] [address], [place] [address] Apr, [facility] [address] [id number] [address] [place] [address], [place] [address] Apr, [facility] [address] [id number] [address] [place] [address], [place] [address] Apr, [facility] [address] [id number] [address] [place] [address], [place] [address] Apr, [facility] [address] [id number] [address] [place] [address], [place] [address] Mar, 2013 [facility] [address] [id number] [facility] [place] [address] Mar, 2013 [facility] [address] [id number] [facility] [place] [address] Mar, 2013 [facility] [address] [id number] [address] [place] [address], [place] [address] Mar, 2013 [facility] [address] [id number] [address] [place] [address], [place] [address] Mar, 2013 [facility] [address] [id number] [address] [place] [address], [place] [address] Mar, 2013 [facility] [address] [id number] [address] [place] [address], [place] [address] Mar, 2013 [facility] [address] [id number] [address] [place] [address], [place] [address] Mar, 2013 [facility] [address] [id number] [address] [place] [address], [place] [address] Mar, 2013 [facility] [address] [id number] [address] [place] [address], [place] [address] Mar, 2013 [facility] [address] [id number] [address] [place] [address], [place] [address] Mar, 2013 [facility] [address] [id number] [address] [place] [address], [place] [address] Mar, 2013 [facility] [address] [id number] [address] [place] [address], [place] [address] Mar, 2013 [facility] [address] [id number] [address] [place] [address], [place] [address] Mar, 2013 [facility] [address] [id number] [address] [place] [address], [place] [address] Mar, 2013 [facility] [address] [id number] [address] [place] [address], [place] [address] Mar2013 [facility] [address] [id number] [facility] [place] [address] Mar, [facility] [address] [id number] [facility] [place] [address] Mar, [facility] [address] [id number] [facility] [place] [address] Feb, [facility] [address] [id number] [facility] [place] [address] Feb, [facility] [address] [id number] [facility] [place] [address] Feb, [facility] [address] [id number] [address] [place] [address], [place] [address] Feb, [facility] [address] [id number] [address] [place] [address], [place] [address] Feb, [facility] [address] [id number] [address] [place] [address], [place] [address] Feb, [facility] [address] [id number] [address] [place] [address], [place] [address] Feb, [facility] [address] [id number] [address] [place] [address], [place] [address] Feb, [facility] [address] [id number] [address] [place] [address], [place] [address] Feb, [facility] [address] [id number] [address] [place] [address], [place] [address] Feb, [facility] [address] [id number] [address] [place] [address], [place] [address] Feb, [facility] [address] [id number] [address] [place] [address], [place] [address] Feb, [facility] [address] [id number] [address] [place] [address], [place] [address] Feb, [facility] [address] [id number] [address] [place] [address], [place] [address] Feb, [facility] [address] [id number] [facility] [place] [address] January, [facility] [address] [id number] [address] [place] [address], [place] [address] January, [facility] [address] [id number] [address] [place] [address], [place] [address] January, [facility] [address] [id number] [address] [place] [address], [place] [address] January, [facility] [address] [id number] [address] [place] [address], [place] [address] January, [facility] [address] [id number] [address] [place] [address], [place] [address] January, [facility] [address] [id number] [address] [place] [address], [place] [address] January, [facility] [address] [id number] [address] [place] [address], [place] [address] January, [facility] [address] [id number] [address] [place] [address], [place] [address] January, [facility] [address] [id number] [address] [place] [address], [place] [address] January, [facility] [address] [id number] [address] [place] [address], [place] [address] January, [facility] [address] [id number] [address] [place] [address], [place] [address] January, [facility] [address] [id number] [address] [place] [address], [place] [address] January, [facility] [address] [id number] [address] [place] [address], [place] [address] January, [facility] [address] [id number] [address] [place] [address], [place] [address] Dec, [facility] [address] [id number] [facility] [place] [address] Dec, [facility] [address] [id number] [facility] [place] [address] Dec, [facility] [address] [id number] [address] [place] [address], [place] [address] Dec, [facility] [address] [id number] [address] [place] [address], [place] [address] Dec, [facility] [address] [id number] [address] [place] [address], [place] [address] Dec, [facility] [address] [id number] [address] [place] [address], [place] [address] Dec, [facility] [address] [id number] [address] [place] [address], [place] [address] Dec, [facility] [address] [id number] [address] [place] [address], [place] [address] Dec, [facility] [address] [id number] [address] [place] [address], [place] [address] Dec, [facility] [address] [id number] [address] [place] [address], [place] [address] Nov, [facility] [address] [id number] [address] [place] [address], [place] [address] Nov, [facility] [address] [id number] [address] [place] [address], [place] [address] Nov, [facility] [address] [id number] [address] [place] [address], [place] [address] Nov, [facility] [address] [id number] [address] [place] [address], [place] [address] Nov, [facility] [address] [id number] [address] [place] [address], [place] [address] Nov, [facility] [address] [id number] [address] [place] [address], [place] [address] Nov, [facility] [address] [id number] [facility] [place] [address] Nov, [facility] [address] [id number] [address] [place] [address], [place] [address] Nov, [facility] [address] [id number] [facility] [place] [address] Nov, [facility] [address] [id number] [address] [place] [address], [place] [address] Oct, [facility] [address] [id number] [address] [place] [address], [place] [id number] Oct, [facility] [address] [id number] [address] [place] [address], [place] [address] Oct, [facility] [address] [id number] [address] [place] [address], [place] [address] Oct, [facility] [address] [id number] [address] [place] [address], [place] [address] Oct, [facility] [address] [id number] [address] [place] [address], [place] [address] Oct, [facility] [address] [id number] [address] [place] [address], [place] [address] Oct, [facility] [address] [id number] [address] [place] [address], [place] [address] Oct, [facility] [address] [id number] [address] [place] [address], [place] [address] Oct, [facility] [address] [id number] [address] [place] [address], [place] [address] Oct, [facility] [address] [id number] [address] [place] [address], [place] [address] Oct, [facility] [address] [id number] [address] [place] [address], [place] [address] Oct, [facility] [address] [id number] [address] [place] [address], [place] [address] Oct, [facility] [address] [id number] [address] [place] [address], [place] [address] Oct, [facility] [address] [id number] [address] [place] [address], [place] [address] Sep, [facility] [address] [id number] [address] [place] [address], [place] [address] Sep, [facility] [address] [id number] [address] [place] [address], [place] [address] Sep, [facility] [address] [id number] [address] [place] [address], [place] [address] Sep, [facility] [address] [id number] [address] [place] [address], [place] [address] Sep, [facility] [address] [id number] [address] [place] [address], [place] [address] Sep, [facility] [address] [id number] [address] [place] [address], [place] [address] Sep, [facility] [address] [id number] [address] [place] [address], [place] [address] Sep, [facility] [address] [id number] [address] [place] [address], [place] [address] Sep, [facility] [address] [id number] [address] [place] [address], [place] [address] Sep, [facility] [address] [id number] [address] [place] [address], [place] [address] Aug, [facility] [address] [id number] [address] [place] [address], [place] [address] Aug, [facility] [address] [id number] [address] [place] [address], [place] [address] Jul, [facility] [address] [id number] [address] [place] [address] [address] Jul, [facility] [address] [id number] [address] [place] [address], [place] [address] Jul, [facility] [address] [id number] [address] [place] [address], [place] [address] Jul, [facility] [address] [id number] [address] [place] [address], [place] [address] Jul, [facility] [address] [id number] [address] [place] [address], [place] [address] Jul, [facility] [address] [id number] [address] [place] [address], [place] [address] Jul, [facility] [address] [id number] [address] [place] [address], [place] [address] Jul, [facility] [address] [id number] [address] [place] [address], [place] [address] Jul, [facility] [address] [id number] [address] [place] [address], [place] [address] Jul, [facility] [address] [id number] [address] [place] [address], [place] [address] Jul, [facility] [address] [id number] [address] [place] [address], [place] [address] Jul, [facility] [address] [id number] [address] [place] [address] Jul, [facility] [address] [id number] [address] [place] [address] Jul, [facility] [address] [id number] [address] [place] [address], [place] [address] Jul, [facility] [address] [id number] [address] [place] [id number] Jul, [facility] [address] [id number] [address] [place] [address] Jul, [facility] [address] [id number] [address] [place] [address], [place] [address] Jul, 2012 [facility] [address] [id number] [address] [place] [address], [place] [address] Jul, 2012 [facility] [address] [id number] [address] [place] [address], [place] [address] Jun, 2012 [facility] [address] [id number] [address] [place] [address], [place] [address] Jun, 2012 [facility] [address] [id number] [address] [place] [address], [place] [address] Jun, 2012 [facility] [address] [id number] [address] [place] [address], [place] [address] Jun, 2012 [facility] [address] [id number] [address] [place] [address], [place] [address] Jun, 2012 [facility] [address] [id number] [address] [place] [address], [place] [address] Jun, 2012 [facility] [address] [id number] [address] [place] [address], [place] [address] Jun, 2012 [facility] [address] [id number] [address] [place] [address], [place] [address] Jun, 2012 [facility] [address] [id number] [address] [place] [id number] Jun, [facility] [address] [id number] [address] [place] [address], [place] [address] Jun, 2012 [facility] [address] [id number] [address] [place] [id number] Jun, [facility] [address] [id number] [address] [place] [address], [place] [address] May, 2012 [facility] [address] [id number] [address] [place] [address], [place] [address] 25 May, 2012 [facility] [address] [id number] [address] [place] [id number] 19 May, 2012 [facility] [address] [id number] [address] [place] [address], [place] [address] 17 May, 2013 [facility] [address] [id number] [address] [place] [address], [place] [address] May, [facility] [address] [id number] [address] [place] [address], [place] [address] May, [facility] [address] [id number] [address] [place] [address], [place] [address] May, [facility] [address] [id number] [address] [place] [address], [place] [address] 05 May, 2013 [facility] [address] [id number] [address] [place] [address], [place] [address] Apr, [facility] [address] [id number] [address] [place] [address], [place] [address] Apr, [facility] [address] [id number] [address] [place] [address], [place] [address] Apr, [facility] [address] [id number] [address] [place] [address], [place] [address] Apr, [facility] [address] [id number] [address] [place] [address], [place] [address] Apr, [facility] [address] [id number] [address] [place] [address], [place] [address] Mar, [facility] [address] [id number] [address] [place] [address], [place] [address] Mar, [facility] [address] [id number] [address] [place] [address], [place] [address] Mar, [facility] [address] [id number] [address] [place] [address], [place] [address] Mar, [facility] [address] [id number] [address] [place] [address], [place] [address] Mar, [facility] [address] [id number] [address] [place] [address], [place] [id number] Mar, [facility] [address] [id number] [address] [place] [address], [place] [address] Mar, [facility] [address] [id number] [address] [place] [address], [place] [address] Mar, [facility] [address] [id number] [address] [place] [address], [place] [address] Feb, [facility] [address] [id number] [address] [place] [address], [place] [address] Feb, [facility] [address] [id number] [address] [place] [address], [place] [address] January, [facility] [address] [id number] [address] [place] [address], [place] [address] January, [facility] [address] [id number] [address] [place] [address], [place] [address] Dec, [facility] [address] [id number] [address] [place] [address], [place] [address] Dec, [facility] [address] [id number] [address] [place] [address], [place] [address] Nov, [facility] [address] [id number] [address] [place] [address], [place] [address] Nov, [facility] [address] [id number] [address] [place] [address], [place] [address] Nov, [facility] [address] [id number] [address] [place] [address], [place] [address] Nov, [facility] [address] [id number] [address] [place] [address], [place] [address] Oct, [facility] [address] [id number] [address] [place] [address], [place] [address] Oct, [facility] [address] [id number] [address] [place] [address], [place] [address] Oct, [facility] [address] [id number] [address] [place] [address], [place] [address] 26 Oct, 2012 [facility] [address] [id number] [address] [place] [address], [place] [address] 16 Oct, 2012 [facility] [address] [id number] [address] [place] [address], [place] [address] 14 Oct, 2012 [facility] [address] [id number] [address] [place] [address], [place] [address] 08 Oct, 2012 [facility] [address] [id number] [address] [place] [address], [place] [address] 07 Oct, 2012 [facility] [address] [id number] [address] [place] [address], [place] [address] 03 Oct, 2012 [facility] [address] [id number] [address] [place] [address], [place] [address] 30 Sep, 2012 [facility] [address] [id number] [address] [place] [address], [place] [address] Sep, [facility] [address] [id number] [address] [place] [address], [place] [address] Sep, [facility] [address] [id number] [address] [place] [address], [place] [address] Sep, [facility] [address] [id number] [address] [place] [address], [place] [address] 17 Sep, 2012 [facility] [address] [id number] [address] [place] [address], [place] [address] Sep, [facility] [address] [id number] [address] [place] [address], [place] [address] Sep, [facility] [address] [id number] [address] [place] [address], [place] [address] 08 Sep, 2012 [facility] [address] [id number] [address] [place] [address], [place] [address] Aug, [facility] [address] [id number] [address] [place] [address], [place] [address] Aug, [facility] [address] [id number] [address] [place] [address], [place] [address] Aug, [facility] [address] [id number] [address] [place] [address], [place] [address] Aug, [facility] [address] [id number] [address] [place] [address], [place] [address] Aug, [facility] [address] [id number] [address] [place] [address], [place] [address] Aug, [facility] [address] [id number] [address] [place] [address], [place] [address] Aug, [facility] [address] [id number] [address] [place] [address], [place] [address] Aug, [facility] [address] [id number] [address] [place] [address], [place] [address] Jul, [facility] [address] [id number] [address] [place] [address], [place] [address] Jul, [facility] [address] [id number] [address] [place] [address], [place] [address] Jul, [facility] [address] [id number] [address] [place] [address], [place] [address] Jul, [facility] [address] [id number] [address] [place] [address], [place] [address] Jul, [facility] [address] [id number] [address] [place] [address], [place] [address] Jul, [facility] [address] [id number] [address] [place] [address], [place] [address] Jun, [facility] [address] [id number] [address] [place] [address], [place] [address] Jun, [facility] [address] [id number] [address] [place] [address], [place] [address] Jun, [facility] [address] [id number] [address] [place] [address], [place] [address] 23 Jun, 2012 [facility] [address] [id number] [address] [place] [address], [place] [address] Jun, [facility] [address] [id number] [address] [place] [address], [place] [address] Jun, [facility] [address] [id number] [address] [place] [address], [place] [address] Jun, [facility] [address] [id number] [address] [place] [address], [place] [address] Jun, [facility] [address] [id number] [address] [place] [address], [place] [address] Jun, [facility] [address] [id number] [address] [place] [address], [place] [address] 26 May, 2012 [facility] [address] [id number] [address] [place] [address], [place] [address] 24 May, 2012 [facility] [address] [id number] [address] [place] [address], [place] [address] 18 May, 2012 [facility] [address] [id number] [address] [place] [address], [place] [address] 30 Apr, 2012 [facility] [address] [id number] [address] [place] [address], [place] [address] 29 Apr, 2012 [facility] [address] [id number] [address] [place] [address], [place] [address] Apr, [facility] [address] [id number] [address] [place] [address], [place] [address] 14 Apr, 2012 [facility] [address] [id number] [address] [place] [address], [place] [address] Apr, [facility] [address] [id number] [address] [place] [address], [place] [address] Apr, [facility] [address] [id number] [address] [place] [address], [place] [address] Mar, [facility] [address] [id number] [address] [place] [address], [place] [address] Mar, [facility] [address] [id number] [address] [place] [address], [place] [address] Mar, [facility] [address] [id number] [address] [place] [address], [place] [address] Mar, [facility] [address] [id number] [address] [place] [address], [place] [address] Feb, [facility] [address] [id number] [address] [place] [address], [place] [address] Feb, [facility] [address] [id number] [address] [place] [address], [place] [address] Feb, [facility] [address] [id number] [address] [place] [address], [place] [address] Feb, [facility] [address] [id number] [address] [place] [address], [place] [address] Feb, [facility] [address] [id number] [address] [place] [address], [place] [address] January, [facility] [address] [id number] [address] [place] [address], [place] [address] January, [facility] [address] [id number] [address] [place] [address], [place] [address] January, [facility] [address] [id number] [address] [place] [address], [place] [address] January, [facility] [address] [id number] [address] [place] [address], [place] [address] January, [facility] [address] [id number] [address] [place] [address], [place] [address] January, [facility] [address] [id number] [address] [place] [address], [place] [address] Dec, [facility] [address] [id number] [address] [place] [address], [place] [address] 24 Dec, 2011 [facility] [address] [id number] [address] [place] [address], [place] [address] 17 Dec, 2011 [facility] [address] [id number] [address] [place] [address], [place] [address] 09 Dec, 2011 [facility] [address] [id number] [address] [place] [address], [place] [address] 06 Dec, 2011 [facility] [address] [id number] [address] [place] [address], [place] [address] 27 Nov, 2011 [facility] [address] [id number] [address] [place] [address], [place] [address] 14 Nov, 2011 [facility] [address] [id number] [address] [place] [address], [place] [address] 12 Nov, 2011 [facility] [address] [id number] [address] [place] [address], [place] [address] 07 Nov, 2011 [facility] [address] [id number] [address] [place] [address], [place] [address] 29 Oct, 2011 [facility] [address] [id number] [address] [place] [address], [place] [address] 28 Oct, 2011 [facility] [address] [id number] [address] [place] [address], [place] [address] 24 Oct, 2011 [facility] [address] [id number] [address] [place] [address], [place] [address] 13 Oct, 2011 [facility] [address] [id number] [address] [place] [address], [place] [address] 08 Oct, 2011 [facility] [address] [id number] [address] [place] [address], [place] [address] 31 Sep, 2011 [facility] [address] [id number] [address] [place] [address], [place] [address] 30 Sep, 2011 [facility] [address] [id number] [address] [place] [address], [place] [address] Sep, [facility] [address] [id number] [address] [place] [address], [place] [address] Sep, [facility] [address] [id number] [address] [place] [address], [place] [address] Sep, [facility] [address] [id number] [address] [place] [address], [place] [address] Sep, [facility] [address] [id number] [address] [place] [address], [place] [address] Aug, [facility] [address] [id number] [address] [place] [address], [place] [address] Aug, [facility] [address] [id number] [address] [place] [address], [place] [address] Aug, [facility] [address] [id number] [address] [place] [address], [place] [address] Jul, [facility] [address] [id number] [address] [place] [address], [place] [address] Jul, [facility] [address] [id number] [address] [place] [address], [place] [address] Jul, [facility] [address] [id number] [address] [place] [id number] Jul, [facility] [address] [id number] [address] [place] [address] Jun, [facility] [address] [id number] [address] [place] [address] Jun, [facility] [address] [id number] [address] [place] [address], [place] [address] 18 Jun, 2011 [facility] [address] [id number] [address] [place] [address], [place] [address] Jun, [facility] [address] [id number] [address] [place] [id number] Jun, [facility] [address] [id number] [address] [place] [id number] 10 Jun, 2011 [facility] [address] [id number] [address] [place] [address], [place] [address] 11 Mar, 2011 [facility] [address] [id number] [address] [place] [address], [place] [address] 18 Dec, 2010 [facility] [address] [id number] [address] [place] [address], [place] [address] 11 Dec, 2010 [facility] [address] [id number] [address] [place] [address], [place] [address] 18 Nov, 2010 [facility] [address] [id number] [address] [place] [address], [place] [address] 16 Nov, 2010 [facility] [address] [id number] [address] [place] [address], [place] [address] 10 Sep, 2010 [facility] [address] [id number] [address] [place] [address], [place] [address] 31 Aug, 2010 [facility] [address] [id number] [address] [place] [address], [place] [address] 29 Aug, 2010 [facility] [address] [id number] [address] [place] [address], [place] [address] 29 Aug, 2010 [facility] [address] [id number] [address] [place] [address], [place] [address] 29 Aug, 2010 [facility] [address] [id number] [address] [place] [address], [place] [address] 27 Aug, 2010 [facility] [address] [id number] [address] [place] [address], [place] [address] 14 Aug, 2010 [facility] [address] [id number] [address] [place] [address], [place] [address] 08 Aug, 2010 [facility] [address] [id number] [address] [place] [address], [place] [address] 08 Aug, 2010 [facility] [address] [id number] [address] [place] [address], [place] [address] 07 Aug, 2010 [facility] [address] [id number] [address] [place] [address], [place] [address] Aug, [facility] [address] [id number] [address] [place] [address], [place] [address] Aug, [facility] [address] [id number] [address] [place] [address], [place] [address] Aug, [facility] [address] [id number] [address] [place] [address], [place] [address] Jul, [facility] [address] [id number] [address] [place] [address], [place] [address] Jul, [facility] [address] [id number] [address] [place] [address], [place] [address] Jul, [facility] [address] [id number] [address] [place] [address], [place] [address] Jul, [facility] [address] [id number] [address] [place] [address], [place] [address] Jul, [facility] [address] [id number] [address] [place] [address], [place] [address] Jul, [facility] [address] [id number] [address] [place] [address], [place] [address] Jun, [facility] [address] [id number] [address] [place] [address], [place] [address] Jun, [facility] [address] [id number] [address] [place] [address], [place] [address] Jun, [facility] [address] [id number] [address] [place] [address], [place] [address] Jun, [facility] [address] [id number] [address] [place] [address], [place] [address] Apr, [facility] [address] [id number] [address] [place] [address], [place] [address] Mar, [facility] [address] [id number] [address] [place] [address], [place] [address] Feb, [facility] [address] [id number] [address] [place] [phone] January, [facility] [address] [id number] [address] [place] [address], [place] [id number] 15 Dec, 2009 [facility] [address] [id number] [address] [place] [id number] Nov, [facility] [address] [id number] [address] [place] [address], [place] [address] Aug, [facility] [address] [id number] [address] [place] [address], [place] [address] Aug, [facility] [address] [id number] [address] [place] [phone] Aug, [facility] [address] [id number] [address] [place] [address], [place] [address] Jul, [facility] [address] [id number] [address] [place] [id number] Jul, [facility] [address] [id number] [address] [place] [phone] Jul, [facility] [address] [id number] [address] [place] [id number] 30 Jun, 2009 [facility] [address] [id number] [address] [place] [phone] 29 Jun, 2009 [facility] [address] [id number] [address] [place] [phone] Jun, [facility] [address] [id number] [address] [place] [id number] Jun, [facility] [address] [id number] [address] [place] [phone] Jun, [facility] [address] [id number] [address] [place] [id number] Jun, [facility] [address] [id number] [address] [place] [phone] Apr, [facility] [address] [facility] [id number] [address] [place] [phone] Apr, [facility] [address] [facility] [id number] [address] [place] [id number] Feb, [facility] [address] [facility] [id number] [address] [place] [phone] January, [facility] [address] [facility] [id number] [address] [place] [id number] Dec, IMMUNIZATIONS No Known Immunizations SOCIAL HISTORY Never Assessed REASON FOR VISIT PLAN OF CARE VITAL SIGNS Height 67 in 2013-11-14 Weight 340.12 lbs 2013-11-14 Temperature 97.5 degrees Fahrenheit 2013-11-14 Heart Rate 82 bpm 2013-11-14 Respiratory Rate 26 2013-11-14 Blood pressure systolic 139 mmHg 2013-11-14 Blood pressure diastolic 84 mmHg 2013-11-14 MEDICATIONS Unknown Medications RESULTS No Results PROCEDURES Procedure Date Ordered Result Body Site COMPLETE CBC W/AUTO DIFF WBC Nov 14, 2013 ASSAY THYROID STIM HORMONE Nov 14, 2013 GLYCATED HEMOGLOBIN TEST Nov 14, 2013 COMPREHEN METABOLIC PANEL Nov 14, 2013 CHEST X-RAY Nov 14, 2013 CT HEAD/BRAIN W/O&W DYE Nov 14, 2013 ELECTROCARDIOGRAM, TRACING Nov 14, 2013 VENIPUNCT, ROUTINE* Nov 14, 2013 INSTRUCTIONS MEDICATIONS ADMINISTERED No Known Medications MEDICAL (GENERAL) HISTORY Type Description Date Medical History type II diabetes Medical History coronary artery disease stress test 15 Medical History chronic obstructive pulmonary disease (C OPD) Medical History gastroesophageal reflux disease (GERD) Medical History acute renal failure Medical History erectile dysfunction Medical History hyperlipidemia Medical History obesity Medical History skin cancer-basal cell R [facility] (removed ) Medical History Arthritis Medical History [...] to urinate 09/16/15 Hospitalization History [facility] inpatient mental health ea rly 2000's Hospitalization History hyperkalemia 10/2017 Hospitalization History fluid in lung
[2020-03-01 17:29] LABS: GLUCOSE 525 MG/DL (70-105)
--- OUTSIDE RECORDS SUMMARY | 2020-03-01 17:29 | XMS REPORT ---
Author Author Michele WASHBURN Organization [facility] Address [address] [place] [address] Care Team Providers Care Loss Prevention Guard Name Role Phone NOEMI WASHBURN Unavailable PROBLEMS Type Condition ICD9-CM Code ILE01-JT Code Onset Dates Condition S tatus SNOMED Code Problem Cough R05 Active 13609132 Problem Benign prostatic hyperplasia with lower urinary tract symptoms, unspecified morphology N40.1 Active 54635 6007 Problem Eustachian tube dysfunction, unspecified laterality H69.80 Active 72825640 Problem Chronic pain G89.29 Active 2466210 1 Problem DM neuro manif type II E11.49 Active 38308762 Problem Diabetes E11.9 Active 31926776 Problem Leukocytosis D72.829 Active 1534430 06 Problem Falling R29.6 Active 574899626 Problem Pressure ulcer of other site, stage 3 L89.893 Active 806843089 Problem 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 Active 327803999 Problem Eye exam abnormal R93.8 Active 16 0335691 Problem Dysuria R30.0 Active 17116821 Problem Hypokalemia E87.6 Active 44599483 Problem Morbid obesity E66.01 Active 75792 6002 Problem Anxiety F41.9 Active 83249336 Problem Diabetic polyneuropathy associated with type 2 d iabetes mellitus E11.42 Active 98259268 Problem Essential hypertension I10 Active 24416040 Problem Bilateral primary osteoarthritis of knee M17.0 Active 753419989 Problem Polyneuropathy associated with underlying disease G63 Active 550566932 Problem Anemia of chronic illness D63.8 Acti ve 727445654 Problem Lymphocytosis D72.820 Active 147475 09 Problem Retinal edema H35.81 Active 806313 6 Problem Chronic lymphocytic leukemia C91.10 A ctive 70340333 Problem Bipolar disorder, in partial remission, most rec ent episode depressed F31.75 Active 41970897 Problem Pure hypercholesterolemia E78.00 Acti ve 663223144 Problem Primary osteoarthritis of right knee M17.11 Active 942564156558992 Problem Bipolar disorder F31.9 Active 137 69074 Problem Bipolar I disorder, most recent episode (or curr ent) mixed, moderate F31.62 Active 98368789 Problem Chronic diastolic (congestive) heart failure I50.3 2 Active 583251959 Problem Reactive airway disease J45.909 Active 361907608466 Problem Insomnia, unspecified type G47.00 Act sharon 868222854 Problem Other chronic pain G89.29 Active 8 0017438 Problem Other iron deficiency anemia D50.8 A ctive 31602300 Problem Mild cognitive impairment G31.84 Acti ve 617838840 Problem Skin cancer C44.90 Active 80265527 7 ALLERGIES No Information ENCOUNTERS Encounter Location Date Diagnosis [place] [address] [facility] [id number] [address] [place] [address] Mar, [place] [address] [place] [id number] [address] [place] [address] Mar, [place] [address] [place] [id number] [address] [place] [address] Mar, [facility] [address] [facility] [id number] [address] [place] [address] Feb, Bipolar disorder F31.9 [place] [address] [facility] [id number] [address] [place] [address] Feb, Cellulitis of right upper ex tremity L03.113 and Skin abrasion T14.8XXA [place] [address] [facility] [id number] [address] [place] [address] Feb, Bipolar disorder, in partial remission, most recent episode depressed F31.75 and Mild cognitive impairment G31.84 [place] [address] [facility] [id number] [address] [place] [address] 13 Feb, 2019 Chronic pain G89.29 [facility] [address] [facility] [id number] [address] [place] [address] Feb, Bipolar disorder, in partial remission, most recent episode depressed F31.75 and Mild cognitive impairment G31.84 [facility] [address] [id number] [address] [place] [address] January, Bipolar disorder, in partial remission, most recent episode depressed F31.75 and Mild cognitive impairment G31.84 [facility] [address] [id number] [address] [place] [address] January, Chronic pain G89.29 and Bipo lar disorder F31.9 [facility] [address] [id number] [address] [place] [address] January, Bipolar disorder, in partial remission, most recent episode depressed F31.75 and Mild cognitive impairment G31.84 [facility] [address] [id number] [address] [place] [address] Dec, [facility] [address] [id number] [address] [place] [address] Dec, Chronic pain G89.29 and Bipo lar disorder F31.9 [facility] [address] [id number] [address] [place] [address] Dec, Edema of both lower extremit ies R60.0 [facility] [address] [id number] [address] [place] [address] Dec, Bipolar disorder F31.9 [facility] [address] [id number] [address] [place] [address] Dec, Bipolar disorder, in partial remission, most recent episode depressed F31.75 and Mild cognitive impairment G31.84 [facility] [address] [id number] [address] [place] [address] Nov, [facility] [address] [id number] [address] [place] [address] Nov, Chronic pain G89.29 [facility] [address] [id number] [address] [place] [address] Nov, Bipolar disorder, in partial remission, most recent episode depressed F31.75 and Mild cognitive impairment G31.84 [place] [id number] [place] [address] Nov, Bipolar disorder F31.[address] [address] 04 Nov, 2018 Encounter for Medicare annua [...] unspecified morphology N40.1 and Essential hypertension I10 [address] [address] 21 Oct, 2018 Chronic pain G89.29 [place] [address] [address] 18 Oct, 2018 Diabetes E11.[address] [address] 11 Oct, 2018 Bipolar I disorder, most rec ent episode (or current) mixed, moderate F31.62 and Mild cognitive impairment G31.84 [place] [address] [place] [id number] [address] [place] [address] Oct, Bipolar I disorder, most rec ent episode (or current) mixed, moderate F31.62 and Mild cognitive impairment G31.84 [place] [address] [place] [id number] [address] [place] [address] Sep, Bipolar I disorder, most rec ent episode (or current) mixed, moderate F31.62 and Mild cognitive impairment G31.84 [place] [address] [place] [id number] [address] [place] [address] Sep, [address] [place] [address] Sep, Diabetes E11.9 ; Hypoxia R09 .02 ; Hyperglycemia R73.9 ; Therapeutic drug monitoring Z51.81 ; BMI 50.0-59.9, adult Z68.43 and Skin cancer C44.90 [facility] [address] [facility] [id number] [address] [place] [address] Sep, Chronic pain G89.29 [facility] [address] [facility] [id number] [address] [place] [address] Sep, Bipolar I disorder, most rec ent episode (or current) mixed, moderate F31.62 [place] [address] [facility] [id number] [address] [place] [address] Sep, [place] [address] [facility] [id number] [address] [place] [address] Sep, [facility] [address] [place] [id number] [address] [place] [address] Aug, Chronic pain G89.29 [facility] [address] [facility] [id number] [address] [place] [address] Aug, Bipolar I disorder, most rec ent episode (or current) mixed, moderate F31.62 [place] [address] [facility] [id number] [address] [place] [address] Aug, Bipolar I disorder, most rec ent episode (or current) mixed, moderate F31.62 and Mild cognitive impairment G31.84 [facility] [address] [facility] [id number] [address] [place] [address] Jul, [facility] [address] [facility] [id number] [address] [place] [address] Jul, Chronic pain G89.29 [facility] [address] [facility] [id number] [address] [place] [address] Jul, Bipolar I disorder, most rec ent episode (or current) mixed, moderate F31.62 and Mild cognitive impairment G31.84 [place] [address] [place] [id number] [address] [place] [address] Jul, Bipolar I disorder, most rec ent episode (or current) mixed, moderate F31.62 and MCI (mild cognitive impairment) G31.84 [facility] [address] [id number] [address] [place] [address] Jul, [facility] [address] [facility] [id number] [address] [place] [address] Jul, [facility] [address] [facility] [id number] [address] [place] [address] Jul, Bipolar I disorder, most rec ent episode (or current) mixed, moderate F31.62 [place] [address] [facility] [id number] [address] [place] [address] Jul, Chronic pain G89.29 [place] [address] [facility] [id number] [address] [place] [address] Jun, Bipolar I disorder, most rec ent episode (or current) mixed, moderate F31.62 [facility] [address] [facility] [id number] [address] [place] [address] Jun, Pre-procedure lab exam Z01.8 12 [facility] [address] [id number] [place] [id number] Jun, [facility] [address] [facility] [id number] [address] [place] [address] Jun, [facility] [address] [facility] [id number] [address] [place] [address] Jun, [facility] [address] [facility] [id number] [address] [place] [address] Jun, Forgetfulness R68.89 ; Pre-s yncope R55 ; Localized edema R60.0 ; Other iron deficiency anemia D50.8 and BMI 50.0-59.9, adult Z68.43 [facility] [address] [facility] [id number] [address] [place] [address] Jun, Chronic pain G89.29 [facility] [address] [facility] [id number] [address] [place] [address] Jun, Chronic pain G89.29 [facility] [address] [facility] [id number] [address] [place] [address] Jun, Bipolar I disorder, most rec ent episode (or current) mixed, moderate F31.62 [place] [address] [place] [id number] [address] [place] [address] May, Chronic pain G89.29 [facility] [address] [place] [id number] [address] [place] [address] Apr, [place] [address] [place] [id number] [place] [address] Apr, Chronic pain G89.29 [place] [address] [place] [id number] [address] [place] [address] Apr, Primary osteoarthritis of ri t knee M17.11 [place] [address] [place] [id number] [address] [place] [address] Mar, [place] [address] [place] [id number] [place] [address] Mar, BMI 50.0-59.9, adult Z68.43 and Bipolar disorder, in partial remission, most recent episode depressed F31.75 [place] [address] [place] [id number] [address] [place] [address] Mar, Diabetes E11.9 ; Pure hyperc holesterolemia E78.00 ; Essential hypertension I10 ; Nausea with vomiting, unspecified R11.2 and Headache, unspecified headache type R51 [place] [address] [place] [id number] [address] [place] [address] Mar, Bipolar I disorder, most rec ent episode (or current) mixed, moderate F31.62 [place] [address] [place] [id number] [address] [place] [address] Mar, Bipolar I disorder, most rec ent episode (or current) mixed, moderate F31.62 [facility] [address] [id number] [address] [place] [address] Mar, Chronic pain G89.29 [facility] [address] [id number] [address] [place] [address] Mar, Bipolar I disorder, most rec ent episode (or current) mixed, moderate F31.62 [facility] [address] [id number] [address] [place] [address] Feb, Bipolar I disorder, most rec ent episode (or current) mixed, moderate F31.62 [place] [address] [facility] [id number] [address] [place] [address] Feb, Chronic pain G89.29 [facility] [address] [facility] [id number] [address] [place] [address] Feb, Decubitus ulcer of right josselin t, stage 3 L89.893 and BMI 50.0-59.9, adult Z68.43 [facility] [address] [facility] [id number] [address] [place] [address] Feb, Bipolar I disorder, most rec ent episode (or current) mixed, moderate F31.62 [facility] [address] [facility] [id number] [address] [place] [id number] Feb, [facility] [address] [facility] [id number] [address] [place] [address] January, [facility] [address] [id number] [address] [place] [address] January, Chronic pain G89.29 [facility] [address] [facility] [id number] [address] [place] [address] January, Bipolar I disorder, most rec ent episode (or current) mixed, moderate F31.62 [facility] [address] [facility] [id number] [address] [place] [address] January, Bipolar I disorder, most rec ent episode (or current) mixed, moderate F31.62 [facility] [address] [facility] [id number] [address] [place] [address] Dec, Bipolar I disorder, most rec ent episode (or current) mixed, moderate F31.62 and BMI 50.0-59.9, adult Z68.43 [facility] [address] [facility] [id number] [address] [place] [address] Dec, Bipolar I disorder, most rec ent episode (or current) mixed, moderate F31.62 [place] [address] [facility] [id number] [address] [place] [address] Dec, Chronic pain G89.29 [place] [address] [place] [id number] [address] [place] [address] Dec, DM neuro manif type II E11.4 9 ; Right flank pain R10.9 ; [facility] 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 Z79.891 ; Encounter for medication monitoring Z51.81 and BMI 50.0-59.9, adult Z68.43 [place] [address] [facility] [id number] [address] [place] [address] Dec, Bipolar I disorder, most rec ent episode (or current) mixed, moderate F31.62 [place] [address] [facility] [id number] [address] [place] [address] Nov, Bipolar I disorder, most rec ent episode (or current) mixed, moderate F31.62 [place] [address] [facility] [id number] [address] [place] [address] Nov, Chronic pain G89.29 [facility] [address] [facility] [id number] [address] [place] [address] Nov, Bipolar I disorder, most rec ent episode (or current) mixed, moderate F31.62 [place] [address] [facility] [id number] [address] [place] [address] Nov, Hypokalemia E87.6 [place] [address] [address] Nov, Bipolar I disorder, most rec ent episode (or current) mixed, moderate F31.62 [place] [address] [address] Oct, Chronic pain G89.29 [place] [address] [address] Oct, BMI 50.0-59.9, adult Z68.43 and Bipolar I disorder, most recent episode (or current) mixed, moderate F31.62 [place] [address] [address] Oct, Bipolar I disorder, most rec ent episode (or current) mixed, moderate F31.62 [place] [address] [address] Oct, [place] [address] [address] Oct, Hypokalemia E87.6 [place] [address] [address] Oct, DM neuro manif type II E11.4 9 [place] [address] [address] Oct, Bipolar I disorder, most rec ent episode (or current) mixed, moderate F31.62 [place] [address] [address] Oct, Bipolar I disorder, most rec ent episode (or current) mixed, moderate F31.62 [place] [address] [address] 14 Oct, 2017 Hyperkalemia E87.5 ; Falling R29.6 ; BMI 50.0-59.9, adult Z68.43 and Acute left ankle pain M25.572 [place] [address] [address] 08 Oct, 2017 DM neuro manif type II E11.4 9 [place] [address] [address] Oct, [place] [address] [address] Sep, Chronic pain G89.29 [place] [address] [address] Sep, [place] [address] [address] Sep, Bilateral primary osteoarthr itis of knee M17.0 [place] [address] [address] Sep, Generalized edema R60.1 [place] [address] [address] Sep, Bipolar I disorder, most rec ent episode (or current) mixed, moderate F31.62 [place] [address] [address] Sep, Hypoxia R09.02 ; Other hyper volemia E87.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 ; Anemia of chronic illness D63.8 and BMI 50.0- 59.9, adult Z68.43 [place] [address] [address] Sep, [address] [address] Sep, Bipolar I disorder, most rec ent episode (or current) mixed, moderate F31.62 [place] [address] [address] Aug, Chronic pain G89.29 [place] [address] [place] [id number] [address] [place] [address] Aug, Generalized edema R60.1 [facility] [address] [facility] [id number] [address] [place] [address] Aug, [facility] [address] [facility] [id number] [address] [place] [address] Aug, [facility] [address] [facility] [id number] [address] [place] [address] 14 Aug, 2017 Bipolar I disorder, most rec ent episode (or current) mixed, moderate F31.62 [place] [address] [facility] [id number] [address] [place] [address] Aug, Bipolar I disorder, most rec ent episode (or current) mixed, moderate F31.62 [place] [address] [place] [id number] [address] [place] [address] Aug, Chronic pain G89.29 [facility] [address] [place] [id number] [address] [place] [address] Jul, Bipolar I disorder, most rec ent episode (or current) mixed, moderate F31.62 [place] [address] [place] [id number] [address] [place] [address] Jul, Bipolar I disorder, most rec ent episode (or current) mixed, moderate F31.62 and BMI 60.0-69.9, adult Z68.44 [place] [address] [facility] [id number] [address] [place] [address] Jul, Bipolar I disorder, most rec ent episode (or current) mixed, moderate F31.62 [place] [address] [facility] [id number] [address] [place] [address] 06 Jul, 2017 Chronic pain G89.29 [facility] [address] [facility] [id number] [address] [place] [address] 02 Jul, 2017 Bipolar I disorder, most rec ent episode (or current) mixed, moderate F31.62 [place] [address] [place] [id number] [address] [place] [address] 18 Jun, 2017 Polyneuropathy associated wi th underlying disease G63 and Diabetes E11.9 [facility] [address] [facility] [id number] [address] [place] [address] 16 Jun, 2017 Bipolar I disorder, most rec ent episode (or current) mixed, moderate F31.62 [place] [address] [place] [id number] [address] [place] [address] 09 Jun, 2017 Chronic pain G89.29 [place] [address] [place] [id number] [address] [place] [address] May, Bipolar I disorder, most rec ent episode (or current) mixed, moderate F31.62 [place] [address] [place] [id number] [address] [place] [address] May, Bipolar I disorder, most rec ent episode (or current) mixed, moderate F31.62 [place] [address] [place] [id number] [address] [place] [address] May, Diabetic polyneuropathy asso ciated with type 2 diabetes mellitus E11.42 [place] [address] [place] [id number] [address] [place] [address] 18 May, 2017 Bipolar I disorder, most rec ent episode (or current) mixed, moderate F31.62 [place] [address] [place] [id number] [address] [place] [address] May, Bipolar I disorder, most rec ent episode (or current) mixed, moderate F31.62 [place] [address] [facility] [id number] [address] [place] [address] May, Chronic pain G89.29 [facility] [address] [facility] [id number] [address] [place] [address] Apr, Bipolar I disorder, most rec ent episode (or current) mixed, moderate F31.62 [place] [address] [place] [id number] [address] [place] [address] Apr, [facility] [address] [id number] [address] [place] [address] Apr, Chronic pain G89.29 and DM n euro manif type II E11.49 [facility] [address] [id number] [address] [place] [address] Apr, [facility] [address] [id number] [address] [place] [address] Apr, Bipolar I disorder, most rec ent episode (or current) mixed, moderate F31.62 [facility] [address] [id number] [address] [place] [id number] Apr, Chronic pain G89.29 [facility] [address] [id number] [address] [place] [id number] Apr, Iliotibial band syndrome, le ft M76.32 [facility] [address] [id number] [address] [place] [id number] Apr, Bipolar I disorder, most rec ent episode (or current) mixed, moderate F31.62 [facility] [address] [id number] [address] [place] [id number] Mar, Bipolar I disorder, most rec ent episode (or current) mixed, moderate F31.62 [facility] [address] [id number] [address] [place] [id number] Mar, Bipolar I disorder, most rec ent episode (or current) mixed, moderate F31.62 [facility] [address] [id number] [address] [place] [phone] Mar, [facility] [address] [id number] [address] [place] [id number] Mar, Bipolar I disorder, most rec ent episode (or current) mixed, moderate F31.62 [facility] [address] [id number] [address] [place] [phone] Mar, Chronic pain G89.29 [facility] [address] [id number] [address] [place] [id number] Mar, Bipolar I disorder, most rec ent episode (or current) mixed, moderate F31.62 [facility] [address] [facility] [id number] [address] [place] [phone] Mar, Bipolar I disorder, most rec ent episode (or current) mixed, moderate F31.62 [facility] [address] [facility] [id number] [address] [place] [phone] Mar, Acute pain of left knee M25. 562 ; Left hip pain M25.552 ; Generalized edema R60.1 and Tongue swelling R22.0 [facility] [address] [id number] [address] [place] [id number] Mar, [facility] [address] [facility] [id number] [address] [place] [address] Feb, Chronic pain G89.29 [facility] [address] [facility] [id number] [address] [place] [address] Feb, Diabetes E11.9 [facility] [address] [id number] [address] [place] [address] January, Chronic pain G89.29 [facility] [address] [facility] [id number] [address] [place] [id number] January, [facility] [address] [facility] [id number] [address] [place] [address] January, Bipolar I disorder, most rec ent episode (or current) mixed, moderate F31.62 [facility] [address] [facility] [id number] [address] [place] [address] Dec, Bipolar I disorder, most rec ent episode (or current) mixed, moderate F31.62 [facility] [address] [facility] [id number] [address] [place] [address] Dec, Chronic pain G89.29 [facility] [address] [facility] [id number] [address] [place] [address] Dec, Bipolar I disorder, most rec ent episode (or current) mixed, moderate F31.62 [facility] [address] [id number] [address] [place] [address] Dec, Diabetes E11.9 ; Essential h ypertension I10 ; Chronic pain G89.29 and Morbid obesity E66.01 [facility] [address] [id number] [address] [place] [id number] Dec, [facility] [address] [facility] [id number] [address] [place] [address] Dec, Bipolar I disorder, most rec ent episode (or current) mixed, moderate F31.62 [facility] [address] [facility] [id number] [address] [place] [id number] Dec, Bipolar I disorder, most rec ent episode (or current) mixed, moderate F31.62 [facility] [address] [facility] [id number] [address] [place] [address] Nov, Chronic pain G89.29 [facility] [address] [id number] [address] [place] [address] Nov, Bipolar I disorder, most rec ent episode (or current) mixed, moderate F31.62 [facility] [address] [facility] [id number] [address] [place] [id number] Nov, [facility] [address] [facility] [id number] [address] [place] [address] Nov, Bipolar I disorder, most rec ent episode (or current) mixed, moderate F31.62 [facility] [address] [facility] [id number] [address] [place] [address] Nov, Bipolar I disorder, most rec ent episode (or current) mixed, moderate F31.62 [facility] [address] [facility] [id number] [address] [place] [address] Nov, [facility] [address] [facility] [id number] [address] [place] [address] Nov, [facility] [address] [facility] [id number] [address] [place] [address] Nov, [facility] [address] [facility] [id number] [address] [place] [address] Oct, Chronic pain G89.29 [facility] [address] [facility] [id number] [address] [place] [address] Oct, Bipolar I disorder, most rec ent episode (or current) mixed, moderate F31.62 [facility] [address] [facility] [id number] [address] [place] [address] Oct, [facility] [address] [facility] [id number] [address] [place] [address] Oct, Chronic pain G89.29 ; Diabet es E11.9 ; Anxiety F41.9 and 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 [facility] [address] [facility] [id number] [address] [place] [address] Oct, [facility] [address] [facility] [id number] [address] [place] [address] Oct, Diabetes E11.9 [facility] [address] [facility] [id number] [address] [place] [address] Oct, Bipolar I disorder, most rec ent episode (or current) mixed, moderate F31.62 [facility] [address] [facility] [id number] [address] [place] [address] Sep, Chronic pain G89.29 [facility] [address] [facility] [id number] [address] [place] [address] Sep, Chronic pain G89.29 [facility] [address] [facility] [id number] [address] [place] [address] Aug, Chronic pain G89.29 [facility] [address] [facility] [id number] [address] [place] [address] Jul, [facility] [address] [facility] [id number] [address] [place] [address] Jul, Diabetes E11.9 [facility] [address] [facility] [id number] [address] [place] [address] Jul, Chronic pain G89.29 [facility] [address] [facility] [id number] [address] [place] [address] Jul, Bipolar I disorder, most rec ent episode (or current) mixed, moderate F31.62 [facility] [address] [facility] [id number] [address] [place] [address] Jun, Bipolar I disorder, most rec ent episode (or current) mixed, moderate F31.62 [facility] [address] [facility] [id number] [address] [place] [address] Jun, [facility] [address] [facility] [id number] [address] [place] [address] Jun, Bipolar I disorder, most rec ent episode (or current) mixed, moderate F31.62 [facility] [address] [facility] [id number] [address] [place] [address] 30 May, 2016 Insomnia, unspecified type G 47.00 [facility] [address] [facility] [id number] [address] [place] [address] May, Bipolar I disorder, most rec ent episode (or current) mixed, moderate F31.62 [facility] [address] [facility] [id number] [address] [place] [address] 14 May, 2016 [facility] [place] [address] [facility] [id number] [address] [place] [address] 08 May, 2016 Bipolar I disorder, most rec ent episode (or current) mixed, moderate F31.62 [facility] [address] [facility] [id number] [address] [place] [address] 06 May, 2016 Diabetes E11.9 and Essential hypertension I10 [facility] [address] [facility] [id number] [address] [place] [address] Apr, Chronic pain G89.29 [facility] [address] [facility] [id number] [address] [place] [address] Apr, Bipolar I disorder, most rec ent episode (or current) mixed, moderate F31.62 [facility] [address] [facility] [id number] [address] [place] [address] Apr, [facility] [address] [place] [id number] [address] [place] [address] Apr, [facility] [address] [place] [id number] [address] [place] [address] Mar, Chronic pain G89.29 ; Headac he, unspecified headache type R51 ; Neuropathy G62.9 ; Pain of right hip joint M25.551 and Essential hypertension I10 [facility] [address] [place] [id number] [address] [place] [address] Mar, Chronic pain G89.29 [facility] [address] [place] [id number] [address] [place] [address] Mar, Bipolar I disorder, most rec ent episode (or current) mixed, moderate F31.62 [facility] [address] [place] [id number] [address] [place] [address] Feb, Bipolar I disorder, most rec ent episode (or current) mixed, moderate F31.62 and Insomnia, unspecified type G47.00 [facility] [place] [address] [facility] [id number] [address] [place] [address] Feb, Chronic pain G89.29 [facility] [place] [address] [facility] [id number] [address] [place] [address] Feb, Bipolar I disorder, most rec ent episode (or current) mixed, moderate F31.62 [facility] [place] [address] [facility] [id number] [address] [place] [address] January, Bipolar I disorder, most rec ent episode (or current) mixed, moderate F31.62 [facility] [place] [address] [place] [id number] [address] [place] [address] January, Chronic pain G89.29 [facility] [address] [id number] [address] [place] [address] January, Chronic pain G89.29 and Esse ntial hypertension I10 [facility] [address] [facility] [id number] [address] [place] [address] January, Bipolar I disorder, most rec ent episode (or current) mixed, moderate F31.62 [facility] [address] [facility] [id number] [address] [place] [id number] Dec, [facility] [address] [facility] [id number] [address] [place] [address] Dec, [facility] [address] [facility] [id number] [address] [place] [address] Dec, [facility] [address] [facility] [id number] [address] [place] [address] Dec, [facility] [address] [facility] [id number] [address] [place] [address] Nov, Reactive airway disease J45. 909 [facility] [address] [facility] [id number] [address] [place] [address] Nov, [facility] [address] [facility] [id number] [address] [place] [address] Nov, [facility] [address] [facility] [id number] [address] [place] [address] Nov, [facility] [address] [facility] [id number] [address] [place] [address] Nov, [facility] [address] [place] [id number] [address] [place] [address] Nov, Onychomycosis B35.1 ; Hammer toe M20.40 ; [place] or callus L84 and DM neuro manif type II E11.49 [facility] [address] [facility] [id number] [address] [place] [address] Nov, Chronic pain G89.29 ; Leukoc ytosis D72.829 and Diabetes E11.9 [place] [address] [address] Nov, [place] [address] [address] Oct, Bronchitis J40 [place] [address] [address] Oct, [place] [address] [address] Oct, [place] [address] [address] Oct, Mastoiditis, unspecified lat erality H70.90 and Type 2 diabetes mellitus with complication E11.8 [facility] [address] [address] Sep, [place] [address] [address] Sep, Dysuria R30.0 ; Cough R05 ; Benign prostatic hyperplasia with lower urinary tract symptoms, unspecified morphology N40.1 ; Hypokalemia E87.6 and Eustachian tube dysfunction, unspecified laterality H69.80 [place] [address] [address] Sep, Moderate mixed bipolar I dis order F31.62 [facility] [address] [address] Sep, Hypokalemia E87.6 [place] [address] [address] Sep, [place] [address] [address] Sep, Upper respiratory tract infe ction, unspecified type J06.9 [facility] [place] [address] [id number] [address] [place] [address] Aug, [facility] [address] [id number] [address] [place] [address] Aug, Dysuria R30.0 [facility] [address] [id number] [address] [place] [address] Aug, [facility] [address] [id number] [address] [place] [address] Jul, [facility] [address] [id number] [address] [place] [address] Jul, [facility] [address] [id number] [address] [place] [address] Jul, [facility] [address] [id number] [address] [place] [address] Jul, [facility] [address] [id number] [address] [place] [address] Jun, [facility] [address] [id number] [address] [place] [address] Jun, [facility] [address] [id number] [address] [place] [id number] Jun, [facility] [address] [id number] [address] [place] [address] May, [facility] [address] [id number] [address] [place] [address] May, Bipolar I disorder, most rec ent episode (or current) mixed, moderate 296.62 [facility] [address] [id number] [address] [place] [address] 16 May, 2015 [facility] [address] [id number] [address] [place] [address] May, Bipolar I disorder, most rec ent episode (or current) mixed, moderate 296.62 and Major depressive disorder, recurrent episode, severe, specified as with psychotic behavior 296.34 [facility] [address] [id number] [address] [place] [address] May, Bipolar I disorder, most rec ent episode (or current) mixed, moderate 296.62 [facility] [address] [facility] [id number] [address] [place] [address] May, [facility] [address] [facility] [id number] [address] [place] [address] Apr, [facility] [address] [facility] [id number] [address] [place] [address] Apr, [facility] [address] [facility] [id number] [address] [place] [address] Apr, Unspecified disorder of kidn ey and ureter 593.9 and Diabetes mellitus type 2, uncontrolled 250.02 [facility] [address] [facility] [id number] [address] [place] [address] Apr, [facility] [address] [facility] [id number] [address] [place] [address] Apr, [facility] [address] [facility] [id number] [address] [place] [address] Apr, [facility] [address] [facility] [id number] [address] [place] [address] Apr, [facility] [address] [facility] [id number] [address] [place] [address] Apr, Diabetes mellitus type II, u ncontrolled 250.02 [facility] [address] [id number] [address] [place] [address] Apr, [facility] [address] [facility] [id number] [address] [place] [address] Mar, [facility] [address] [facility] [id number] [address] [place] [address] Mar, [facility] [address] [facility] [id number] [address] [place] [address] Mar, [facility] [address] [place] [id number] [address] [place] [address] Mar, Major depressive disorder, r ecurrent episode, severe, specified as with psychotic behavior 296.34 and Bipolar I disorder, most recent episode (or current) mixed, moderate 296.62 [facility] [address] [place] [id number] [address] [place] [address] Mar, Diabetes 250.00 ; Anuria 788 .5 ; Nausea and vomiting 787.01 and Diarrhea 787.91 [facility] [address] [place] [id number] [address] [place] [address] Mar, Diabetes 250.00 [facility] [address] [address] Mar, [facility] [address] [address] Mar, Diabetes 250.00 [facility] [address] [place] [id number] [address] [place] [address] Mar, [facility] [address] [address] Mar, [facility] [address] [place] [id number] [address] [place] [address] Mar, [facility] [address] [place] [id number] [address] [place] [address] Mar, [facility] [address] [place] [id number] [address] [place] [address] Mar, Bipolar I disorder, most rec ent episode (or current) mixed, moderate 296.62 and Major depressive disorder, recurrent episode, severe, specified as with psychotic behavior 296.34 [facility] [address] [place] [id number] [address] [place] [address] Mar, Magnesium deficiency 275.2 ; Hypokalemia 276.8 ; Nausea & vomiting 787.01 and Diabetes mellitus type 2, uncontrolled 250.02 [facility] [address] [place] [id number] [address] [place] [address] Feb, [facility] [address] [address] Feb, Bipolar I disorder, most rec ent episode (or current) mixed, moderate 296.62 [facility] [address] [place] [id number] [place] [address] Feb, Nausea and vomiting 787.01 ; Left elbow pain 719.42 ; Anuria 788.5 and Diabetes 250.00 [facility] [address] [address] Feb, [place] [address] [address] Feb, Hypopotassemia 276.8 and Hyp okalemia 276.8 [place] [address] [address] Feb, Hypopotassemia 276.8 and Hyp okalemia 276.8 [place] [address] [place] [id number] [address] [place] [address] Feb, Seborrheic keratoses 702.19 [place] [address] [place] [id number] [address] [place] [address] Feb, Hypopotassemia 276.8 and Low magnesium levels 275.2 [place] [address] [place] [id number] [address] [place] [address] January, [facility] [address] [place] [id number] [address] [place] [address] January, [facility] [address] [address] January, [facility] [address] [place] [id number] [address] [place] [address] January, Scalp lesion 709.9 [place] [address] [address] January, [facility] [address] [id number] [address] [place] [address] 30 Dec, 2014 Tear of medial cartilage or meniscus of knee, current 836.0 and 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 [facility] [place] [address] [id number] [address] [place] [address] Dec, [facility] [address] [id number] [address] [place] [address] Dec, [facility] [address] [id number] [address] [place] [address] Dec, Squamous cell carcinoma, 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 [facility] [address] [id number] [address] [place] [id number] 14 Dec, 2014 [facility] [address] [id number] [address] [place] [address] Dec, [facility] [address] [id number] [address] [place] [address] Nov, [facility] [address] [id number] [address] [place] [address] Nov, [facility] [address] [id number] [address] [place] [address] Nov, [facility] [address] [id number] [address] [place] [address] Nov, [facility] [address] [id number] [address] [place] [address] Nov, [facility] [address] [id number] [address] [place] [id number] Nov, [facility] [address] [id number] [address] [place] [id number] Nov, [facility] [address] [id number] [address] [place] [id number] Nov, [facility] [address] [id number] [address] [place] [address], [place] [id number] Nov, [facility] [address] [id number] [address] [place] [address], [place] [id number] Nov, [facility] [address] [id number] [address] [place] [address], [place] [id number] Nov, [facility] [address] [id number] [address] [place] [address], [place] [id number] Nov, [facility] [address] [id number] [address] [place] [address], [place] [id number] Oct, 2014 [facility] [address] [id number] [address] [place] [address], [place] [id number] Oct, 2014 [facility] [address] [id number] [address] [place] [address], [place] [id number] Oct, 2014 [facility] [address] [id number] [address] [place] [address], [place] [id number] Oct, [facility] [address] [id number] [address] [place] [address], [place] [id number] Oct, [facility] [address] [id number] [address] [place] [address], [place] [id number] Oct, [facility] [address] [id number] [address] [place] [id number] Oct, 2014 [facility] [address] [id number] [address] [place] [id number] Oct, 2014 [facility] [address] [id number] [address] [place] [address], [place] [id number] Oct, [facility] [address] [id number] [address] [place] [id number] Sep, [facility] [address] [id number] [address] [place] [id number] Sep, [facility] [address] [id number] [address] [place] [id number] Sep, [facility] [address] [id number] [address] [place] [address], [place] [id number] Sep, [facility] [address] [id number] [address] [place] [address], [place] [id number] Sep, [facility] [address] [id number] [address] [place] [address], [place] [id number] Sep, [facility] [address] [id number] [address] [place] [address], [place] [id number] Sep, [facility] [address] [id number] [address] [place] [address], [place] [id number] Sep, [facility] [address] [id number] [address] [place] [address], [place] [id number] Sep, [facility] [address] [id number] [address] [place] [address], [place] [address] Sep, [facility] [address] [id number] [address] [place] [address], [place] [id number] Sep, [facility] [address] [id number] [address] [place] [address], [place] [id number] Sep, [facility] [address] [id number] [address] [place] [address], [place] [id number] Sep, [facility] [address] [id number] [address] [place] [address], [place] [id number] Sep, [facility] [address] [id number] [address] [place] [address], [place] [id number] Sep, [facility] [address] [id number] [address] [place] [address], [place] [address] Sep, [facility] [address] [id number] [address] [place] [address], [place] [address] Aug, [facility] [address] [id number] [address] [place] [address], [place] [address] Aug, [facility] [address] [id number] [facility] [place] [address] Aug, [facility] [address] [id number] [facility] [place] [address] Aug, [facility] [address] [id number] [facility] [place] [address] Aug, [facility] [address] [id number] [facility] [place] [address] Aug, [facility] [address] [id number] [facility] [place] [address] Aug, [facility] [address] [id number] [address] [place] [address], [place] [address] Aug, [facility] [address] [id number] [address] [place] [address], [place] [address] Aug, [facility] [address] [id number] [address] [place] [address], [place] [address] Aug, [facility] [address] [id number] [address] [place] [address], [place] [address] Aug, [facility] [place] [address] [place] [id number] Aug, [facility] [address] [id number] [address] [place] [address], [place] [address] Aug, [facility] [address] [id number] [address] [place] [address], [place] [address] Aug, [facility] [address] [id number] [address] [place] [address], [place] [address] Aug, [facility] [address] [id number] [address] [place] [address], [place] [address] Aug, [facility] [address] [id number] [facility] [place] [address] Aug, [facility] [address] [id number] [address] [place] [address], [place] [address] Aug, [facility] [address] [id number] [address] [place] [address], [place] [address] Aug, [facility] [address] [id number] [address] [place] [address], [place] [address] Aug, [facility] [address] [id number] [address] [place] [address], [place] [address] Aug, [facility] [address] [id number] [address] [place] [address], [place] [address] Aug, [facility] [address] [id number] [address] [place] [address], [place] [address] Aug, [facility] [address] [id number] [address] [place] [address], [place] [address] Aug, [facility] [address] [id number] [address] [place] [address], [place] [address] Aug, [facility] [address] [id number] [address] [place] [address], [place] [address] Aug, [facility] [address] [id number] [address] [place] [address], [place] [address] Aug, [facility] [address] [id number] [address] [place] [address], [place] [address] Aug, [facility] [address] [id number] [address] [place] [address], [place] [address] Aug, [facility] [address] [id number] [address] [place] [address], [place] [address] Aug, [facility] [address] [id number] [address] [place] [address], [place] [address] Jul, [facility] [address] [id number] [address] [place] [address], [place] [address] Jul, [facility] [address] [id number] [address] [place] [address], [place] [address] Jul, [facility] [address] [id number] [address] [place] [id number] Jul, [facility] [address] [id number] [address] [place] [address], [place] [address] Jul, [facility] [address] [id number] [address] [place] [address] Jul, [facility] [address] [id number] [address] [place] [address], [place] [address] Jul, [facility] [address] [id number] [address] [place] [id number] Jul, [facility] [address] [id number] [address] [place] [address], [place] [address] Jul, [facility] [address] [id number] [address] [place] [address], [place] [address] Jul, [facility] [address] [id number] [address] [place] [id number] Jun, [facility] [address] [id number] [address] [place] [address], [place] [address] Jun, [facility] [address] [id number] [address] [place] [address] Jun, [facility] [address] [id number] [address] [place] [address] Jun, [facility] [address] [id number] [address] [place] [address] Jun, [facility] [address] [id number] [address] [place] [address] Jun, [facility] [address] [id number] [address] [place] [address] Jun, [facility] [address] [id number] [address] [place] [address] Jun, [facility] [address] [id number] [address] [place] [address], [place] [address] Jun, [facility] [address] [id number] [address] [place] [address], [place] [address] Jun, 2013 [facility] [address] [id number] [address] [place] [address], [place] [address] 29 Sep, 2013 [facility] [address] [id number] [address] [place] [address], [place] [address] 29 Sep, 2013 [facility] [address] [id number] [address] [place] [address], [place] [address] 26 Sep, 2013 [facility] [address] [id number] [address] [place] [address], [place] [address] 26 Sep, 2013 [facility] [address] [id number] [address] [place] [address], [place] [address] 17 Sep, 2013 [facility] [address] [id number] [address] [place] [address], [place] [address] 17 Sep, 2013 [facility] [address] [id number] [address] [place] [address], [place] [address] 15 Sep, 2013 [facility] [address] [id number] [address] [place] [address], [place] [address] 15 Sep, 2013 [facility] [address] [id number] [address] [place] [address], [place] [address] 15 Sep, 2013 [facility] [address] [id number] [address] [place] [address], [place] [address] 15 May, 2013 [facility] [address] [id number] [address] [place] [address], [place] [address] 10 Sep, 2013 [facility] [address] [id number] [address] [place] [address], [place] [address] 10 Sep, 2013 [facility] [address] [id number] [address] [place] [address], [place] [address] 09 Sep, 2013 [facility] [address] [id number] [address] [place] [address], [place] [address] 09 Sep, 2013 [facility] [address] [id number] [address] [place] [address], [place] [address] May, [facility] [address] [id number] [facility] [place] [address] May, [facility] [address] [id number] [address] [place] [address], [place] [address] Apr, [facility] [address] [id number] [address] [place] [address], [place] [address] Apr, [facility] [address] [id number] [address] [place] [address], [place] [address] Apr, [facility] [address] [id number] [address] [place] [address], [place] [address] Apr, [facility] [address] [id number] [address] [place] [address], [place] [address] Apr, [facility] [address] [id number] [address] [place] [address], [place] [address] Apr, [facility] [address] [id number] [address] [place] [address], [place] [address] Apr, [facility] [address] [id number] [address] [place] [address], [place] [address] Apr, [facility] [address] [id number] [address] [place] [address], [place] [address] Apr, [facility] [address] [id number] [address] [place] [address], [place] [address] Apr, [facility] [address] [id number] [address] [place] [address], [place] [address] Apr, [facility] [address] [id number] [address] [place] [address], [place] [address] Apr, [facility] [address] [id number] [address] [place] [address], [place] [address] Apr, [facility] [address] [id number] [address] [place] [address], [place] [address] Apr, [facility] [address] [id number] [address] [place] [address], [place] [address] Apr, [facility] [address] [id number] [facility] [place] [address] Mar, [facility] [address] [id number] [address] [place] [address], [place] [address] Mar, [facility] [address] [id number] [address] [place] [address], [place] [address] Mar, 2013 [facility] [address] [id number] [address] [place] [address], [place] [address] Mar, [facility] [address] [id number] [address] [place] [address], [place] [address] Mar, [facility] [address] [id number] [address] [place] [address], [place] [address] Mar, [facility] [address] [id number] [address] [place] [address], [place] [address] Mar, [facility] [address] [id number] [address] [place] [address], [place] [address] Mar, [facility] [address] [id number] [address] [place] [address], [place] [address] Mar, [facility] [address] [id number] [address] [place] [address], [place] [address] Mar, [facility] [address] [id number] [address] [place] [address], [place] [address] Mar, 2013 [facility] [address] [id number] [address] [place] [address], [place] [address] Mar, 2013 [facility] [address] [id number] [address] [place] [address], [place] [address] Mar, 2013 [facility] [address] [id number] [address] [place] [address], [place] [address] Mar, 2013 [facility] [address] [id number] [address] [place] [address], [place] [address] Mar2013 [facility] [address] [id number] [facility] [place] [address] Mar, [facility] [address] [id number] [facility] [place] [address] Mar, [facility] [address] [id number] [facility] [place] [address] Mar, [facility] [address] [id number] [facility] [place] [address] Feb, [facility] [address] [id number] [facility] [place] [address] Feb, [facility] [address] [id number] [address] [place] [address], [place] [address] Feb, [facility] [address] [id number] [address] [place] [address], [place] [address] Feb, [facility] [address] [id number] [address] [place] [address], [place] [address] Feb, [facility] [address] [id number] [address] [place] [address], [place] [address] Feb, [facility] [address] [id number] [address] [place] [address], [place] [address] Feb, [facility] [address] [id number] [address] [place] [address], [place] [address] Feb, [facility] [address] [id number] [address] [place] [address], [place] [address] Feb, [facility] [address] [id number] [address] [place] [address], [place] [address] Feb, [facility] [address] [id number] [address] [place] [address], [place] [address] Feb, [facility] [address] [id number] [address] [place] [address], [place] [address] Feb, [facility] [address] [id number] [address] [place] [address], [place] [address] Feb, [facility] [address] [id number] [facility] [place] [address] Feb, [facility] [address] [id number] [address] [place] [address], [place] [address] January, [facility] [address] [id number] [address] [place] [address], [place] [address] January, [facility] [address] [id number] [address] [place] [address], [place] [address] January, [facility] [address] [id number] [address] [place] [address], [place] [address] January, [facility] [address] [id number] [address] [place] [address], [place] [address] January, [facility] [address] [id number] [address] [place] [address], [place] [address] January, [facility] [address] [id number] [address] [place] [address], [place] [address] January, [facility] [address] [id number] [address] [place] [address], [place] [address] January, [facility] [address] [id number] [address] [place] [address], [place] [address] January, [facility] [address] [id number] [address] [place] [address], [place] [address] January, [facility] [address] [id number] [address] [place] [address], [place] [address] January, [facility] [address] [id number] [address] [place] [address], [place] [address] January, [facility] [address] [id number] [address] [place] [address], [place] [address] January, [facility] [address] [id number] [address] [place] [address], [place] [address] January, [facility] [address] [id number] [facility] [place] [address] Dec, [facility] [address] [id number] [facility] [place] [address] Dec, [facility] [address] [id number] [address] [place] [address], [place] [address] Dec, [facility] [address] [id number] [address] [place] [address], [place] [address] Dec, [facility] [address] [id number] [address] [place] [address], [place] [address] Dec, [facility] [address] [id number] [address] [place] [address], [place] [address] Dec, [facility] [address] [id number] [address] [place] [address], [place] [address] Dec, [facility] [address] [id number] [address] [place] [address], [place] [address] Dec, [facility] [address] [id number] [address] [place] [address], [place] [address] Dec, [facility] [address] [id number] [address] [place] [address], [place] [address] Dec, [facility] [address] [id number] [address] [place] [address], [place] [address] Nov, [facility] [address] [id number] [address] [place] [address], [place] [address] Nov, [facility] [address] [id number] [address] [place] [address], [place] [address] Nov, [facility] [address] [id number] [address] [place] [address], [place] [address] Nov, [facility] [address] [id number] [address] [place] [address], [place] [address] Nov, [facility] [address] [id number] [address] [place] [address], [place] [address] Nov, [facility] [address] [id number] [facility] [place] [address] 05 Nov, 2013 [facility] [address] [id number] [address] [place] [address], [place] [address] Nov, [facility] [address] [id number] [address] [place] [address], [place] [address] Nov, [facility] [address] [id number] [address] [place] [address], [place] [address] Nov, [facility] [address] [id number] [address] [place] [address], [place] [address] Oct, [facility] [address] [id number] [address] [place] [address], [place] [address] Oct, [facility] [address] [id number] [address] [place] [address], [place] [address] Oct, [facility] [address] [id number] [address] [place] [address], [place] [address] Oct, [facility] [address] [id number] [address] [place] [address], [place] [address] Oct, [facility] [address] [id number] [address] [place] [address], [place] [address] Oct, [facility] [address] [id number] [address] [place] [address], [place] [address] Oct, [facility] [address] [id number] [address] [place] [address], [place] [address] Oct, [facility] [address] [id number] [address] [place] [address], [place] [address] Oct, [facility] [address] [id number] [address] [place] [address], [place] [address] 05 Oct, 2013 [facility] [address] [id number] [address] [place] [address], [place] [address] 04 Oct, 2013 [facility] [address] [id number] [address] [place] [address], [place] [id number] 04 Oct, 2013 [facility] [address] [id number] [address] [place] [address], [place] [id number] Oct, [facility] [address] [id number] [address] [place] [address], [place] [id number] Oct, [facility] [address] [id number] [address] [place] [address], [place] [id number] Sep, [facility] [address] [id number] [address] [place] [address], [place] [id number] Sep, [facility] [address] [id number] [address] [place] [address], [place] [address] Sep, [facility] [address] [id number] [address] [place] [address], [place] [address] Sep, [facility] [address] [id number] [address] [place] [address], [place] [id number] Sep, [facility] [address] [id number] [address] [place] [address], [place] [address] Sep, [facility] [address] [id number] [address] [place] [address], [place] [address] Sep, [facility] [address] [id number] [address] [place] [address], [place] [id number] Sep, [facility] [address] [id number] [address] [place] [address], [place] [address] Sep, [facility] [address] [id number] [address] [place] [address], [place] [address] Sep, [facility] [address] [id number] [address] [place] [address], [place] [id number] Aug, [facility] [address] [id number] [address] [place] [address], [place] [id number] Aug, [facility] [address] [id number] [address] [place] [address] [address] Jul, [facility] [address] [id number] [address] [place] [address], [place] [address] Jul, [facility] [address] [id number] [address] [place] [address], [place] [address] Jul, [facility] [address] [id number] [address] [place] [address], [place] [address] Jul, [facility] [address] [id number] [address] [place] [address], [place] [address] Jul, [facility] [address] [id number] [address] [place] [address], [place] [address] Jul, [facility] [address] [id number] [address] [place] [address], [place] [id number] Jul, [facility] [address] [id number] [address] [place] [address], [place] [id number] Jul, [facility] [address] [id number] [address] [place] [address], [place] [id number] Jul, [facility] [address] [id number] [address] [place] [address], [place] [id number] Jul, [facility] [address] [id number] [address] [place] [address], [place] [address] Jul, [facility] [address] [id number] [address] [place] [id number] Jul, [facility] [address] [id number] [address] [place] [id number] Jul, [facility] [address] [id number] [address] [place] [address], [place] [id number] Jul, [facility] [address] [id number] [address] [place] [id number] Jul, [facility] [address] [id number] [address] [place] [id number] Jul, [facility] [address] [id number] [address] [place] [address], [place] [id number] 05 Jul, 2012 [facility] [address] [id number] [address] [place] [address], [place] [address] Jul, 2012 [facility] [address] [id number] [address] [place] [address], [place] [address] Jul, 2012 [facility] [address] [id number] [address] [place] [address], [place] [address] Jun, 2012 [facility] [address] [id number] [address] [place] [address], [place] [address] Jun, 2012 [facility] [address] [id number] [address] [place] [address], [place] [address] Jun, 2012 [facility] [address] [id number] [address] [place] [address], [place] [address] Jun, 2012 [facility] [address] [id number] [address] [place] [address], [place] [id number] Jun, 2012 [facility] [address] [id number] [address] [place] [address], [place] [address] Jun, 2012 [facility] [address] [id number] [address] [place] [address], [place] [address] Jun, 2012 [facility] [address] [id number] [address] [place] [id number] Jun, 2012 [facility] [address] [id number] [address] [place] [address], [place] [address] Jun, 2012 [facility] [address] [id number] [address] [place] [id number] Jun, 2012 [facility] [address] [id number] [address] [place] [address], [place] [address] Jun, [facility] [address] [id number] [address] [place] [address], [place] [address] May, 2012 [facility] [address] [id number] [address] [place] [id number] 25 May, 2012 [facility] [address] [id number] [address] [place] [address], [place] [address] May, 2012 [facility] [address] [id number] [address] [place] [address], [place] [address] May, [facility] [address] [id number] [address] [place] [address], [place] [address] May, [facility] [address] [id number] [address] [place] [address], [place] [address] May, [facility] [address] [id number] [address] [place] [address], [place] [address] May, [facility] [address] [id number] [address] [place] [address], [place] [address] May, [facility] [address] [id number] [address] [place] [address], [place] [address] Apr, [facility] [address] [id number] [address] [place] [address], [place] [address] Apr, [facility] [address] [id number] [address] [place] [address], [place] [address] Apr, [facility] [address] [id number] [address] [place] [address], [place] [address] Apr, [facility] [address] [id number] [address] [place] [address], [place] [address] Apr, [facility] [address] [id number] [address] [place] [address], [place] [address] Mar, [facility] [address] [id number] [address] [place] [address], [place] [address] Mar, [facility] [address] [id number] [address] [place] [address], [place] [address] Mar, [facility] [address] [id number] [address] [place] [address], [place] [address] Mar, [facility] [address] [id number] [address] [place] [address], [place] [address] Mar, [facility] [address] [id number] [facility] [place] [address] Mar, [facility] [address] [id number] [address] [place] [address], [place] [address] Mar, [facility] [address] [id number] [address] [place] [address], [place] [address] Mar, [facility] [address] [id number] [address] [place] [address], [place] [address] Feb, [facility] [address] [id number] [address] [place] [address], [place] [address] Feb, [facility] [address] [id number] [address] [place] [address], [place] [address] January, [facility] [address] [id number] [address] [place] [address], [place] [address] January, [facility] [address] [id number] [address] [place] [address], [place] [address] Dec, [facility] [address] [id number] [address] [place] [address], [place] [address] Dec, [facility] [address] [id number] [address] [place] [address], [place] [address] Nov, [facility] [address] [id number] [address] [place] [address], [place] [address] Nov, [facility] [address] [id number] [address] [place] [address], [place] [address] Nov, [facility] [address] [id number] [address] [place] [address], [place] [address] Nov, [facility] [address] [id number] [address] [place] [address], [place] [address] Oct, [facility] [address] [id number] [address] [place] [address], [place] [address] Oct, [facility] [address] [id number] [address] [place] [address], [place] [address] 26 Oct, 2012 [facility] [address] [id number] [address] [place] [address], [place] [address] 26 Oct, 2012 [facility] [address] [id number] [address] [place] [address], [place] [address] 16 Oct, 2012 [facility] [address] [id number] [address] [place] [address], [place] [address] 14 Oct, 2012 [facility] [address] [id number] [address] [place] [address], [place] [address] 08 Oct, 2012 [facility] [address] [id number] [address] [place] [address], [place] [id number] 07 Oct, 2012 [facility] [address] [id number] [address] [place] [address], [place] [address] 03 Oct, 2012 [facility] [address] [id number] [address] [place] [address], [place] [address] 30 Sep, 2012 [facility] [address] [id number] [address] [place] [address], [place] [address] Sep, [facility] [address] [id number] [address] [place] [address], [place] [address] Sep, [facility] [address] [id number] [address] [place] [address], [place] [address] Sep, [facility] [address] [id number] [address] [place] [address], [place] [address] Sep, [facility] [address] [id number] [address] [place] [address], [place] [address] Sep, [facility] [address] [id number] [address] [place] [address], [place] [address] 09 Sep, 2012 [facility] [address] [id number] [address] [place] [address], [place] [address] 08 Sep, 2012 [facility] [address] [id number] [address] [place] [address], [place] [address] Aug, [facility] [address] [id number] [address] [place] [address], [place] [address] Aug, [facility] [address] [id number] [address] [place] [address], [place] [address] Aug, [facility] [address] [id number] [address] [place] [address], [place] [address] Aug, [facility] [address] [id number] [address] [place] [address], [place] [address] Aug, [facility] [address] [id number] [address] [place] [address], [place] [address] Aug, [facility] [address] [id number] [address] [place] [address], [place] [address] Aug, [facility] [address] [id number] [address] [place] [address], [place] [address] Aug, [facility] [address] [id number] [address] [place] [address], [place] [address] Jul, [facility] [address] [id number] [address] [place] [address], [place] [address] Jul, [facility] [address] [id number] [address] [place] [address], [place] [address] Jul, [facility] [address] [id number] [address] [place] [address], [place] [address] Jul, [facility] [address] [id number] [address] [place] [address], [place] [address] Jul, [facility] [address] [id number] [address] [place] [address], [place] [address] Jul, [facility] [address] [id number] [address] [place] [address], [place] [address] Jun, [facility] [address] [id number] [address] [place] [address], [place] [address] Jun, [facility] [address] [id number] [address] [place] [address], [place] [address] 23 Jun, 2012 [facility] [address] [id number] [address] [place] [address], [place] [id number] 23 Jun, 2012 [facility] [address] [id number] [address] [place] [address], [place] [address] Jun, [facility] [address] [id number] [address] [place] [address], [place] [address] 19 Jun, 2012 [facility] [address] [id number] [address] [place] [address], [place] [id number] 19 Jun, 2012 [facility] [address] [id number] [address] [place] [address], [place] [address] 10 Jun, 2012 [facility] [address] [id number] [address] [place] [address], [place] [address] 10 Jun, 2012 [facility] [address] [id number] [address] [place] [address], [place] [address] 26 May, 2012 [facility] [address] [id number] [address] [place] [address], [place] [address] 24 May, 2012 [facility] [address] [id number] [address] [place] [address], [place] [address] 18 May, 2012 [facility] [address] [id number] [address] [place] [address], [place] [address] 30 Apr, 2012 [facility] [address] [id number] [address] [place] [address], [place] [address] 29 Apr, 2012 [facility] [address] [id number] [address] [place] [address], [place] [address] 18 Apr, 2012 [facility] [address] [id number] [address] [place] [address], [place] [address] 14 Apr, 2012 [facility] [address] [id number] [address] [place] [address], [place] [address] 10 Apr, 2012 [facility] [address] [id number] [address] [place] [address], [place] [address] Apr, [facility] [address] [id number] [address] [place] [address], [place] [address] Mar, [facility] [address] [id number] [address] [place] [address], [place] [address] Mar, [facility] [address] [id number] [address] [place] [address], [place] [address] Mar, [facility] [address] [id number] [address] [place] [address], [place] [address] Mar, [facility] [address] [id number] [address] [place] [address], [place] [address] Feb, [facility] [address] [id number] [address] [place] [address], [place] [address] Feb, [facility] [address] [id number] [address] [place] [address], [place] [address] Feb, [facility] [address] [id number] [address] [place] [address], [place] [address] Feb, [facility] [address] [id number] [address] [place] [address], [place] [address] Feb, [facility] [address] [id number] [address] [place] [address], [place] [address] January, [facility] [address] [id number] [address] [place] [address], [place] [address] January, [facility] [address] [id number] [address] [place] [address], [place] [address] January, [facility] [address] [id number] [address] [place] [address], [place] [address] January, [facility] [address] [id number] [address] [place] [address], [place] [address] January, [facility] [address] [id number] [address] [place] [address], [place] [address] January, [facility] [address] [id number] [address] [place] [address], [place] [address] 24 Dec, 2011 [facility] [address] [id number] [address] [place] [address], [place] [address] 24 Dec, 2011 [facility] [address] [id number] [address] [place] [address], [place] [id number] 17 Dec, 2011 [facility] [address] [id number] [address] [place] [address], [place] [address] 09 Dec, 2011 [facility] [address] [id number] [address] [place] [address], [place] [address] 06 Dec, 2011 [facility] [address] [id number] [address] [place] [address], [place] [address] 27 Nov, 2011 [facility] [address] [id number] [address] [place] [address], [place] [address] 14 Nov, 2011 [facility] [address] [id number] [address] [place] [address], [place] [address] 12 Nov, 2011 [facility] [address] [id number] [address] [place] [address], [place] [address] 07 Nov, 2011 [facility] [address] [id number] [address] [place] [address], [place] [address] 29 Oct, 2011 [facility] [address] [id number] [address] [place] [address], [place] [address] 28 Oct, 2011 [facility] [address] [id number] [address] [place] [address], [place] [address] 24 Oct, 2011 [facility] [address] [id number] [address] [place] [address], [place] [address] 13 Oct, 2011 [facility] [address] [id number] [address] [place] [address], [place] [address] 08 Oct, 2011 [facility] [address] [id number] [address] [place] [address], [place] [id number] 31 Sep, 2011 [facility] [address] [id number] [address] [place] [address], [place] [address] 30 Sep, 2011 [facility] [address] [id number] [address] [place] [address], [place] [address] Sep, [facility] [address] [id number] [address] [place] [address], [place] [address] Sep, [facility] [address] [id number] [address] [place] [address], [place] [address] Sep, [facility] [address] [id number] [address] [place] [address], [place] [address] Sep, [facility] [address] [id number] [address] [place] [address], [place] [address] Aug, [facility] [address] [id number] [address] [place] [address], [place] [address] Aug, [facility] [address] [id number] [address] [place] [address], [place] [id number] Aug, [facility] [address] [id number] [address] [place] [address], [place] [address] Jul, [facility] [address] [id number] [address] [place] [address], [place] [address] Jul, [facility] [address] [id number] [address] [place] [address] Jul, [facility] [address] [id number] [address] [place] [id number] Jul, [facility] [address] [id number] [address] [place] [id number] Jun, [facility] [address] [id number] [address] [place] [address], [place] [address] Jun, [facility] [address] [id number] [address] [place] [address], [place] [address] Jun, [facility] [address] [id number] [address] [place] [id number] Jun, [facility] [address] [id number] [address] [place] [id number] 10 Jun, 2011 [facility] [address] [id number] [address] [place] [address], [place] [address] 10 Jun, 2011 [facility] [address] [id number] [address] [place] [address], [place] [address] 11 Mar, 2011 [facility] [address] [id number] [address] [place] [address], [place] [address] 18 Dec, 2010 [facility] [address] [id number] [address] [place] [address], [place] [address] 11 Dec, 2010 [facility] [address] [id number] [address] [place] [address], [place] [id number] 18 Nov, 2010 [facility] [address] [id number] [address] [place] [address], [place] [id number] 16 Nov, 2010 [facility] [address] [id number] [address] [place] [address], [place] [address] 10 Sep, 2010 [facility] [address] [id number] [address] [place] [address], [place] [address] 31 Aug, 2010 [facility] [address] [id number] [address] [place] [address], [place] [address] 29 Aug, 2010 [facility] [address] [id number] [address] [place] [address], [place] [address] 29 Aug, 2010 [facility] [address] [id number] [address] [place] [address], [place] [address] 29 Aug, 2010 [facility] [address] [id number] [address] [place] [address], [place] [id number] 27 Aug, 2010 [facility] [address] [id number] [address] [place] [address], [place] [address] 14 Aug, 2010 [facility] [address] [id number] [address] [place] [address], [place] [address] 08 Aug, 2010 [facility] [address] [id number] [address] [place] [address], [place] [id number] 08 Aug, 2010 [facility] [address] [id number] [address] [place] [address], [place] [id number] 07 Aug, 2010 [facility] [address] [id number] [address] [place] [address], [place] [address] Aug, [facility] [address] [id number] [address] [place] [address], [place] [id number] Aug, [facility] [address] [id number] [address] [place] [address], [place] [id number] Aug, [facility] [address] [id number] [address] [place] [address], [place] [id number] Jul, [facility] [address] [id number] [address] [place] [address], [place] [address] Jul, [facility] [address] [id number] [address] [place] [address], [place] [address] Jul, [facility] [address] [id number] [address] [place] [address], [place] [id number] Jul, [facility] [address] [id number] [address] [place] [address], [place] [id number] Jul, [facility] [address] [id number] [address] [place] [address], [place] [id number] Jul, [facility] [address] [id number] [address] [place] [address], [place] [id number] 24 Jun, 2010 [facility] [address] [id number] [address] [place] [address], [place] [id number] Jun, [facility] [address] [id number] [address] [place] [address], [place] [id number] Jun, [facility] [address] [id number] [address] [place] [address], [place] [id number] Jun, [facility] [address] [id number] [address] [place] [address], [place] [id number] Apr, [facility] [address] [id number] [address] [place] [address], [place] [id number] Mar, [facility] [address] [id number] [address] [place] [address], [place] [id number] 17 Feb, 2010 [facility] [address] [id number] [address] [place] [address], [place] [id number] January, [facility] [address] [id number] [address] [place] [address], [place] [id number] 15 Dec, 2009 [facility] [address] [id number] [address] [place] [address], [place] [id number] Nov, [facility] [address] [id number] [address] [place] [address], [place] [id number] 31 Aug, 2009 [facility] [address] [id number] [address] [place] [phone] Aug, [facility] [address] [id number] [address] [place] [address], [place] [id number] Aug, [facility] [address] [id number] [address] [place] [id number] Jul, [facility] [address] [id number] [address] [place] [address], [place] [id number] Jul, [facility] [address] [id number] [address] [place] [phone] Jul, [facility] [address] [id number] [address] [place] [id number] 30 Jun, 2009 [facility] [address] [id number] [address] [place] [id number] 29 Jun, 2009 [facility] [address] [id number] [address] [place] [id number] Jun, [facility] [address] [id number] [address] [place] [phone] Jun, [facility] [address] [id number] [address] [place] [phone] Jun, [facility] [address] [id number] [address] [place] [id number] Jun, [facility] [address] [facility] [id number] [address] [place] [id number] Apr, [facility] [address] [facility] [id number] [address] [place] [phone] Apr, [facility] [address] [facility] [id number] [address] [place] [id number] Feb, [facility] [address] [facility] [id number] [address] [place] [id number] January, [facility] [address] [facility] [id number] [address] [place] [phone] Dec, IMMUNIZATIONS No Known Immunizations SOCIAL HISTORY [...] History inability to urinate 09/16/15 Hospitalization History [facility] inpatient mental health ea rly 1999' Hospitalization History hyperkalemia 10/2017 Hospitalization History fluid in lung
--- OUTSIDE RECORDS SUMMARY | 2020-03-01 17:29 | XMS REPORT ---
Author Author Michele Lazaro Organization [facility] [place] Address Unknown Care Team Providers Care Executive Vice President Of Sales Name Role Phone ALYSE Lazaro Unavailable PROBLEMS Type Condition ICD9-CM Code BIM17-HW Code Onset Dates Condition S tatus SNOMED Code Problem Cough R05 Active 34190955 Problem Benign prostatic hyperplasia with lower urinary tract symptoms, unspecified morphology N40.1 Active 51307 6007 Problem Eustachian tube dysfunction, unspecified laterality H69.80 Active 65889306 Problem Chronic pain G89.29 Active 1607068 1 Problem DM neuro manif type II E11.49 Active 95437394 Problem Diabetes E11.9 Active 71552257 Problem Leukocytosis D72.829 Active 5923064 06 Problem Falling R29.6 Active 526244179 Problem Pressure ulcer of other site, stage 3 L89.893 Active 172907522 Problem 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 Active 292667153 Problem Eye exam abnormal R93.8 Active 16 7885656 Problem Dysuria R30.0 Active 91344138 Problem Hypokalemia E87.6 Active 71307521 Problem Morbid obesity E66.01 Active 95859 6002 Problem Anxiety F41.9 Active 60579970 Problem Diabetic polyneuropathy associated with type 2 d iabetes mellitus E11.42 Active 44129752 Problem Essential hypertension I10 Active 47960506 Problem Bilateral primary osteoarthritis of knee M17.0 Active 723195124 Problem Polyneuropathy associated with underlying disease G63 Active 231876459 Problem Anemia of chronic illness D63.8 Acti ve 119463776 Problem Lymphocytosis D72.820 Active 961964 09 Problem Retinal edema H35.81 Active 655195 6 Problem Chronic lymphocytic leukemia C91.10 A ctive 05094867 Problem Bipolar disorder, in partial remission, most rec ent episode depressed F31.75 Active 84557119 Problem Pure hypercholesterolemia E78.00 Acti ve 786405823 Problem Primary osteoarthritis of right knee M17.11 Active 495361992600027 Problem Bipolar disorder F31.9 Active 137 33192 Problem Bipolar I disorder, most recent episode (or curr ent) mixed, moderate F31.62 Active 90617338 Problem Chronic diastolic (congestive) heart failure I50.3 2 Active 544953441 Problem Reactive airway disease J45.909 Active 697520790480 Problem Insomnia, unspecified type G47.00 Act sharon 450767618 Problem Other chronic pain G89.29 Active 8 4328203 Problem Other iron deficiency anemia D50.8 A ctive 81739337 Problem Mild cognitive impairment G31.84 Acti ve 475317752 Problem Skin cancer C44.90 Active 19940631 7 ALLERGIES No Information ENCOUNTERS Encounter Location Date Diagnosis [place] [address] [address] Mar, [place] [address] [address] Mar, [place] [address] [address] Mar, [place] [address] [place] [id number] [place] [address] Feb, Bipolar disorder F31.9 [place] [address] [place] [id number] [address] [place] [address] Feb, Cellulitis of right upper ex tremity L03.113 and Skin abrasion T14.8XXA [place] [address] [place] [id number] [address] [place] [address] Feb, Bipolar disorder, in partial remission, most recent episode depressed F31.75 and Mild cognitive impairment G31.84 [place] [address] [facility] [id number] [address] [place] [address] 13 Feb, 2019 Chronic pain G89.29 [place] [address] [place] [id number] [address] [place] [address] Feb, Bipolar disorder, in partial remission, most recent episode depressed F31.75 and Mild cognitive impairment G31.84 [place] [address] [id number] [address] [place] [address] January, Bipolar disorder, in partial remission, most recent episode depressed F31.75 and Mild cognitive impairment G31.84 [facility] [place] [address] [id number] [address] [place] [address] January, Chronic pain G89.29 and Bipo lar disorder F31.9 [facility] [place] [address] [id number] [address] [place] [address] January, Bipolar disorder, in partial remission, most recent episode depressed F31.75 and Mild cognitive impairment G31.84 [facility] [place] [address] [id number] [address] [place] [address] Dec, [facility] [place] [address] [id number] [address] [place] [address] Dec, Chronic pain G89.29 and Bipo lar disorder F31.9 [facility] [place] [address] [id number] [address] [place] [address] Dec, Edema of both lower extremit ies R60.0 [facility] [place] [address] [id number] [address] [place] [address] Dec, Bipolar disorder F31.9 [facility] [place] [address] [id number] [address] [place] [address] Dec, Bipolar disorder, in partial remission, most recent episode depressed F31.75 and Mild cognitive impairment G31.84 [facility] [place] [address] [id number] [address] [place] [address] Nov, [facility] [place] [address] [id number] [address] [place] [address] Nov, Chronic pain G89.29 [facility] [place] [address] [id number] [address] [place] [address] Nov, Bipolar disorder, in partial remission, most recent episode depressed F31.75 and Mild cognitive impairment G31.84 [facility] [place] [id number] [place] [address] Nov, Bipolar disorder F31.[address] [address] 04 Nov, 2018 Encounter for Medicare [email or web address] [...] morphology N40.1 and Essential hypertension I10 [address] [address] Oct, Chronic pain G89.29 [place] [address] [address] 18 Oct, 2018 Diabetes E11.9 [place] [address] [address] Oct, Bipolar I disorder, most rec ent episode (or current) mixed, moderate F31.62 and Mild cognitive impairment G31.84 [place] [address] [place] [id number] [address] [place] [address] Oct, Bipolar I disorder, most rec ent episode (or current) mixed, moderate F31.62 and Mild cognitive impairment G31.84 [place] [address] [place] [id number] [address] [place] [address] Sep, Bipolar I disorder, most rec ent episode (or current) mixed, moderate F31.62 and Mild cognitive impairment G31.84 [place] [address] [place] [id number] [address] [place] [address] Sep, [place] [address] [place] [id number] [place] [address] Sep, Diabetes E11.9 ; Hypoxia R09 .02 ; Hyperglycemia R73.9 ; Therapeutic drug monitoring Z51.81 ; BMI 50.0-59.9, adult Z68.43 and Skin cancer C44.90 [facility] [place] [address] [id number] [address] [place] [address] Sep, Chronic pain G89.29 [facility] [place] [address] [id number] [address] [place] [address] Sep, Bipolar I disorder, most rec ent episode (or current) mixed, moderate F31.62 [facility] [place] [address] [id number] [address] [place] [address] Sep, [facility] [place] [address] [facility] [id number] [address] [place] [address] Sep, [facility] [place] [address] [facility] [id number] [address] [place] [address] Aug, Chronic pain G89.29 [facility] [place] [address] [id number] [address] [place] [address] Aug, Bipolar I disorder, most rec ent episode (or current) mixed, moderate F31.62 [place] [address] [facility] [id number] [address] [place] [address] Aug, Bipolar I disorder, most rec ent episode (or current) mixed, moderate F31.62 and Mild cognitive impairment G31.84 [facility] [place] [address] [facility] [id number] [address] [place] [address] Jul, [facility] [place] [address] [id number] [address] [place] [address] Jul, Chronic pain G89.29 [facility] [place] [address] [facility] [id number] [address] [place] [address] Jul, Bipolar I disorder, most rec ent episode (or current) mixed, moderate F31.62 and Mild cognitive impairment G31.84 [place] [address] [facility] [id number] [address] [place] [address] Jul, Bipolar I disorder, most rec ent episode (or current) mixed, moderate F31.62 and MCI (mild cognitive impairment) G31.84 [facility] [place] [address] [id number] [address] [place] [address] Jul, [facility] [place] [address] [facility] [id number] [address] [place] [address] Jul, [facility] [place] [address] [facility] [id number] [address] [place] [address] Jul, Bipolar I disorder, most rec ent episode (or current) mixed, moderate F31.62 [facility] [place] [address] [id number] [address] [place] [address] Jul, Chronic pain G89.29 [facility] [place] [address] [facility] [id number] [address] [place] [address] Jun, Bipolar I disorder, most rec ent episode (or current) mixed, moderate F31.62 [facility] [place] [address] [facility] [id number] [address] [place] [address] Jun, Pre-procedure lab exam Z01.8 12 [facility] [place] [address] [facility] [id number] [address] [place] [address] Jun, [facility] [address] [id number] [place] [id number] Jun, [facility] [place] [address] [facility] [id number] [address] [place] [address] Jun, [facility] [place] [address] [facility] [id number] [address] [place] [address] Jun, Forgetfulness R68.89 ; Pre-s yncope R55 ; Localized edema R60.0 ; Other iron deficiency anemia D50.8 and BMI 50.0-59.9, adult Z68.43 [facility] [place] [address] [facility] [id number] [address] [place] [address] Jun, Chronic pain G89.29 [facility] [place] [address] [facility] [id number] [address] [place] [address] Jun, Chronic pain G89.29 [facility] [place] [address] [facility] [id number] [address] [place] [address] Jun, Bipolar I disorder, most rec ent episode (or current) mixed, moderate F31.62 [facility] [place] [address] [place] [id number] [address] [place] [address] May, Chronic pain G89.29 [facility] [place] [address] [facility] [id number] [address] [place] [address] Apr, [place] [address] [facility] [id number] [address] [place] [address] Apr, Chronic pain G89.29 [place] [address] [place] [id number] [address] [place] [address] Apr, Primary osteoarthritis of ri t knee M17.11 [place] [address] [facility] [id number] [address] [place] [address] Mar, [place] [address] [place] [id number] [address] [place] [address] Mar, BMI 50.0-59.9, adult Z68.43 and Bipolar disorder, in partial remission, most recent episode depressed F31.75 [place] [address] [place] [id number] [address] [place] [address] Mar, Diabetes E11.9 ; Pure hyperc holesterolemia E78.00 ; Essential hypertension I10 ; Nausea with vomiting, unspecified R11.2 and Headache, unspecified headache type R51 [place] [address] [place] [id number] [address] [place] [address] Mar, Bipolar I disorder, most rec ent episode (or current) mixed, moderate F31.62 [place] [address] [place] [id number] [address] [place] [address] Mar, Bipolar I disorder, most rec ent episode (or current) mixed, moderate F31.62 [facility] [place] [address] [facility] [id number] [address] [place] [address] Mar, Chronic pain G89.29 [facility] [place] [address] [facility] [id number] [address] [place] [address] Mar, Bipolar I disorder, most rec ent episode (or current) mixed, moderate F31.62 [facility] [place] [address] [facility] [id number] [address] [place] [address] Feb, Bipolar I disorder, most rec ent episode (or current) mixed, moderate F31.62 [place] [address] [facility] [id number] [address] [place] [address] Feb, Chronic pain G89.29 [facility] [place] [address] [facility] [id number] [address] [place] [address] Feb, Decubitus ulcer of right josselin t, stage 3 L89.893 and BMI 50.0-59.9, adult Z68.43 [facility] [place] [address] [facility] [id number] [address] [place] [address] Feb, Bipolar I disorder, most rec ent episode (or current) mixed, moderate F31.62 [facility] [place] [address] [facility] [id number] [address] [place] [address] Feb, [facility] [place] [address] [facility] [id number] [address] [place] [address] January, [facility] [place] [address] [facility] [id number] [address] [place] [address] January, Chronic pain G89.29 [facility] [place] [address] [facility] [id number] [address] [place] [address] January, Bipolar I disorder, most rec ent episode (or current) mixed, moderate F31.62 [facility] [place] [address] [facility] [id number] [address] [place] [address] January, Bipolar I disorder, most rec ent episode (or current) mixed, moderate F31.62 [place] [address] [facility] [id number] [address] [place] [address] Dec, Bipolar I disorder, most rec ent episode (or current) mixed, moderate F31.62 and BMI 50.0-59.9, adult Z68.43 [place] [address] [facility] [id number] [address] [place] [address] Dec, Bipolar I disorder, most rec ent episode (or current) mixed, moderate F31.62 [place] [address] [facility] [id number] [address] [place] [address] Dec, Chronic pain G89.29 [place] [address] [place] [id number] [address] [place] [address] Dec, DM neuro manif type II E11.4 9 ; Right flank pain R10.9 ; nursing home 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 Z79.891 ; Encounter for medication monitoring Z51.81 and BMI 50.0-59.9, adult Z68.43 [place] [address] [facility] [id number] [address] [place] [address] Dec, Bipolar I disorder, most rec ent episode (or current) mixed, moderate F31.62 [place] [address] [place] [id number] [address] [place] [address] Nov, Bipolar I disorder, most rec ent episode (or current) mixed, moderate F31.62 [place] [address] [facility] [id number] [address] [place] [address] Nov, Chronic pain G89.29 [place] [address] [facility] [id number] [address] [place] [address] Nov, Bipolar I disorder, most rec ent episode (or current) mixed, moderate F31.62 [place] [address] [facility] [id number] [address] [place] [address] Nov, Hypokalemia E87.6 [place] [address] [place] [id number] [address] [place] [address] Nov, Bipolar I disorder, most rec ent episode (or current) mixed, moderate F31.62 [place] [address] [place] [id number] [place] [address] Oct, Chronic pain G89.29 [place] [address] [address] Oct, BMI 50.0-59.9, adult Z68.43 and Bipolar I disorder, most recent episode (or current) mixed, moderate F31.62 [place] [address] [address] Oct, Bipolar I disorder, most rec ent episode (or current) mixed, moderate F31.62 [place] [address] [address] Oct, [place] [address] [address] Oct, Hypokalemia E87.6 [place] [address] [address] Oct, DM neuro manif type II E11.4 9 [place] [address] [address] Oct, Bipolar I disorder, most rec ent episode (or current) mixed, moderate F31.62 [place] [address] [address] Oct, Bipolar I disorder, most rec ent episode (or current) mixed, moderate F31.62 [place] [address] [address] 14 Oct, 2017 Hyperkalemia E87.5 ; Falling R29.6 ; BMI 50.0-59.9, adult Z68.43 and Acute left ankle pain M25.572 [place] [address] [address] 08 Oct, 2017 DM neuro manif type II E11.4 9 [place] [address] [address] Oct, [facility] [place] [address] [place] [id number] [place] [address] Sep, Chronic pain G89.29 [place] [address] [address] Sep, [place] [address] [address] Sep, Bilateral primary osteoarthr itis of knee M17.0 [place] [address] [address] Sep, Generalized edema R60.1 [place] [address] [address] Sep, Bipolar I disorder, most rec ent episode (or current) mixed, moderate F31.62 [place] [address] [address] Sep, Hypoxia R09.02 ; Other hyper volemia E87.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 ; Anemia of chronic illness D63.8 and BMI 50.0- 59.9, adult Z68.43 [place] [address] [address] Sep, [place] [address] [address] Sep, Bipolar I disorder, most rec ent episode (or current) mixed, moderate F31.62 [place] [address] [place] [id number] [place] [address] Aug, Chronic pain G89.29 [place] [address] [place] [address] Aug, Generalized edema R60.1 [facility] [place] [address] [id number] [address] [place] [address] Aug, [facility] [place] [address] [facility] [id number] [address] [place] [address] Aug, [facility] [place] [address] [place] [id number] [address] [place] [address] Aug, Bipolar I disorder, most rec ent episode (or current) mixed, moderate F31.62 [place] [address] [id number] [address] [place] [address] Aug, Bipolar I disorder, most rec ent episode (or current) mixed, moderate F31.62 [place] [address] [place] [id number] [address] [place] [address] Aug, Chronic pain G89.29 [place] [address] [place] [id number] [address] [place] [address] Jul, Bipolar I disorder, most rec ent episode (or current) mixed, moderate F31.62 [place] [address] [place] [id number] [address] [place] [address] Jul, Bipolar I disorder, most rec ent episode (or current) mixed, moderate F31.62 and BMI 60.0-69.9, adult Z68.44 [place] [address] [place] [id number] [address] [place] [address] 16 Jul, 2017 Bipolar I disorder, most rec ent episode (or current) mixed, moderate F31.62 [place] [address] [facility] [id number] [address] [place] [address] Jul, Chronic pain G89.29 [facility] [place] [address] [place] [id number] [address] [place] [address] 02 Jul, 2017 Bipolar I disorder, most rec ent episode (or current) mixed, moderate F31.62 [place] [address] [facility] [id number] [address] [place] [address] Jun, Polyneuropathy associated wi th underlying disease G63 and Diabetes E11.9 [facility] [place] [address] [facility] [id number] [address] [place] [address] 16 Jun, 2017 Bipolar I disorder, most rec ent episode (or current) mixed, moderate F31.62 [facility] [place] [address] [facility] [id number] [address] [place] [address] 09 Jun, 2017 Chronic pain G89.29 [facility] [place] [address] [facility] [id number] [address] [place] [address] May, Bipolar I disorder, most rec ent episode (or current) mixed, moderate F31.62 [place] [address] [facility] [id number] [address] [place] [address] May, Bipolar I disorder, most rec ent episode (or current) mixed, moderate F31.62 [place] [address] [facility] [id number] [address] [place] [address] May, Diabetic polyneuropathy asso ciated with type 2 diabetes mellitus E11.42 [facility] [place] [address] [facility] [id number] [address] [place] [address] 18 May, 2017 Bipolar I disorder, most rec ent episode (or current) mixed, moderate F31.62 [facility] [place] [address] [facility] [id number] [address] [place] [address] May, Bipolar I disorder, most rec ent episode (or current) mixed, moderate F31.62 [facility] [place] [address] [facility] [id number] [address] [place] [address] May, Chronic pain G89.29 [facility] [place] [address] [facility] [id number] [address] [place] [id number] Apr, Bipolar I disorder, most rec ent episode (or current) mixed, moderate F31.62 [facility] [place] [address] [facility] [id number] [address] [place] [id number] Apr, [facility] [place] [address] [place] [id number] [address] [place] [phone] Apr, Chronic pain G89.29 and DM n euro manif type II E11.49 [facility] [place] [address] [id number] [address] [place] [id number] Apr, [facility] [place] [address] [facility] [id number] [address] [place] [id number] Apr, Bipolar I disorder, most rec ent episode (or current) mixed, moderate F31.62 [facility] [place] [address] [id number] [address] [place] [address] Apr, Chronic pain G89.29 [facility] [place] [address] [id number] [address] [place] [address] Apr, Iliotibial band syndrome, le ft M76.32 [facility] [place] [address] [facility] [id number] [address] [place] [phone] Apr, Bipolar I disorder, most rec ent episode (or current) mixed, moderate F31.62 [facility] [place] [address] [id number] [address] [place] [phone] Mar, Bipolar I disorder, most rec ent episode (or current) mixed, moderate F31.62 [facility] [place] [address] [facility] [id number] [address] [place] [phone] Mar, Bipolar I disorder, most rec ent episode (or current) mixed, moderate F31.62 [facility] [place] [address] [facility] [id number] [address] [place] [phone] Mar, [facility] [place] [address] [facility] [id number] [address] [place] [address] Mar, Bipolar I disorder, most rec ent episode (or current) mixed, moderate F31.62 [facility] [place] [address] [facility] [id number] [address] [place] [phone] Mar, Chronic pain G89.29 [facility] [place] [address] [facility] [id number] [address] [place] [id number] Mar, Bipolar I disorder, most rec ent episode (or current) mixed, moderate F31.62 [facility] [place] [address] [id number] [address] [place] [id number] Mar, Bipolar I disorder, most rec ent episode (or current) mixed, moderate F31.62 [facility] [place] [address] [id number] [address] [place] [id number] Mar, Acute pain of left knee M25. 562 ; Left hip pain M25.552 ; Generalized edema R60.1 and Tongue swelling R22.0 [facility] [place] [address] [id number] [address] [place] [phone] Mar, [facility] [place] [address] [id number] [address] [place] [id number] Feb, Chronic pain G89.29 [facility] [place] [address] [facility] [id number] [address] [place] [address] Feb, Diabetes E11.9 [facility] [place] [address] [id number] [address] [place] [id number] January, Chronic pain G89.29 [facility] [place] [address] [id number] [address] [place] [phone] January, [facility] [place] [address] [id number] [address] [place] [phone] January, Bipolar I disorder, most rec ent episode (or current) mixed, moderate F31.62 [facility] [place] [address] [id number] [address] [place] [id number] Dec, Bipolar I disorder, most rec ent episode (or current) mixed, moderate F31.62 [facility] [place] [address] [facility] [id number] [address] [place] [address] Dec, Chronic pain G89.29 [facility] [place] [address] [id number] [address] [place] [id number] Dec, Bipolar I disorder, most rec ent episode (or current) mixed, moderate F31.62 [facility] [place] [address] [id number] [address] [place] [address] Dec, Diabetes E11.9 ; Essential h ypertension I10 ; Chronic pain G89.29 and Morbid obesity E66.01 [facility] [place] [address] [id number] [address] [place] [id number] Dec, [facility] [place] [address] [id number] [address] [place] [phone] Dec, Bipolar I disorder, most rec ent episode (or current) mixed, moderate F31.62 [facility] [place] [address] [facility] [id number] [address] [place] [phone] Dec, Bipolar I disorder, most rec ent episode (or current) mixed, moderate F31.62 [facility] [place] [address] [facility] [id number] [address] [place] [address] Nov, Chronic pain G89.29 [facility] [place] [address] [id number] [address] [place] [phone] Nov, Bipolar I disorder, most rec ent episode (or current) mixed, moderate F31.62 [facility] [place] [address] [facility] [id number] [address] [place] [id number] Nov, [facility] [place] [address] [facility] [id number] [address] [place] [phone] Nov, Bipolar I disorder, most rec ent episode (or current) mixed, moderate F31.62 [facility] [place] [address] [id number] [address] [place] [id number] Nov, Bipolar I disorder, most rec ent episode (or current) mixed, moderate F31.62 [facility] [place] [address] [facility] [id number] [address] [place] [id number] Nov, [facility] [place] [address] [facility] [id number] [address] [place] [phone] Nov, [facility] [place] [address] [facility] [id number] [address] [place] [phone] Nov, [facility] [place] [address] [facility] [id number] [address] [place] [id number] Oct, Chronic pain G89.29 [facility] [place] [address] [facility] [id number] [address] [place] [phone] Oct, Bipolar I disorder, most rec ent episode (or current) mixed, moderate F31.62 [facility] [place] [address] [facility] [id number] [address] [place] [id number] Oct, [facility] [place] [address] [facility] [id number] [address] [place] [address] Oct, Chronic pain G89.29 ; Diabet es E11.9 ; Anxiety F41.9 and 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 [facility] [place] [address] [facility] [id number] [address] [place] [phone] Oct, [facility] [place] [address] [facility] [id number] [address] [place] [phone] Oct, Diabetes E11.9 [facility] [place] [address] [facility] [id number] [address] [place] [phone] Oct, Bipolar I disorder, most rec ent episode (or current) mixed, moderate F31.62 [facility] [place] [address] [facility] [id number] [address] [place] [address] Sep, Chronic pain G89.29 [facility] [place] [address] [facility] [id number] [address] [place] [address] Sep, Chronic pain G89.29 [facility] [place] [address] [facility] [id number] [address] [place] [address] Aug, Chronic pain G89.29 [facility] [place] [address] [facility] [id number] [address] [place] [phone] Jul, [facility] [place] [address] [facility] [id number] [address] [place] [address] Jul, Diabetes E11.9 [facility] [place] [address] [facility] [id number] [address] [place] [address] Jul, Chronic pain G89.29 [place] [address] [facility] [id number] [address] [place] [address] Jul, Bipolar I disorder, most rec ent episode (or current) mixed, moderate F31.62 [place] [address] [facility] [id number] [address] [place] [address] Jun, Bipolar I disorder, most rec ent episode (or current) mixed, moderate F31.62 [place] [address] [facility] [id number] [address] [place] [address] Jun, [place] [address] [place] [id number] [address] [place] [phone] Jun, Bipolar I disorder, most rec ent episode (or current) mixed, moderate F31.62 [place] [address] [facility] [id number] [address] [place] [address] May, Insomnia, unspecified type G 47.00 [place] [address] [facility] [id number] [address] [place] [address] May, Bipolar I disorder, most rec ent episode (or current) mixed, moderate F31.62 [place] [address] [facility] [id number] [address] [place] [address] 14 May, 2016 [facility] [place] [address] [facility] [id number] [address] [place] [address] 08 May, 2016 Bipolar I disorder, most rec ent episode (or current) mixed, moderate F31.62 [place] [address] [facility] [id number] [address] [place] [address] 06 May, 2016 Diabetes E11.9 and Essential hypertension I10 [place] [address] [facility] [id number] [address] [place] [address] Apr, Chronic pain G89.29 [place] [address] [place] [id number] [address] [place] [address] Apr, Bipolar I disorder, most rec ent episode (or current) mixed, moderate F31.62 [place] [address] [place] [id number] [address] [place] [address] Apr, [place] [address] [place] [id number] [place] [address] Apr, [place] [address] [place] [id number] [place] [address] Mar, Chronic pain G89.29 ; Headac he, unspecified headache type R51 ; Neuropathy G62.9 ; Pain of right hip joint M25.551 and Essential hypertension I10 [place] [address] [place] [id number] [address] [place] [address] Mar, Chronic pain G89.29 [place] [address] [place] [id number] [address] [place] [address] Mar, Bipolar I disorder, most rec ent episode (or current) mixed, moderate F31.62 [place] [address] [address] Feb, Bipolar I disorder, most rec ent episode (or current) mixed, moderate F31.62 and Insomnia, unspecified type G47.00 [place] [address] [place] [id number] [address] [place] [address] Feb, Chronic pain G89.29 [place] [address] [place] [id number] [address] [place] [address] Feb, Bipolar I disorder, most rec ent episode (or current) mixed, moderate F31.62 [place] [address] [place] [id number] [address] [place] [phone] January, Bipolar I disorder, most rec ent episode (or current) mixed, moderate F31.62 [place] [address] [place] [id number] [address] [place] [address] January, Chronic pain G89.29 [facility] [place] [address] [facility] [id number] [address] [place] [address] January, Chronic pain G89.29 and Esse ntial hypertension I10 [facility] [place] [address] [facility] [id number] [address] [place] [phone] January, Bipolar I disorder, most rec ent episode (or current) mixed, moderate F31.62 [facility] [place] [address] [facility] [id number] [address] [place] [address] Dec, [facility] [place] [address] [facility] [id number] [address] [place] [address] Dec, [facility] [place] [address] [facility] [id number] [address] [place] [phone] Dec, [facility] [place] [address] [place] [id number] [address] [place] [phone] Dec, [facility] [place] [address] [place] [id number] [address] [place] [address] Nov, Reactive airway disease J45. 909 [facility] [place] [address] [place] [id number] [address] [place] [address] Nov, [facility] [place] [address] [facility] [id number] [address] [place] [address] Nov, [facility] [place] [address] [place] [id number] [address] [place] [phone] Nov, [facility] [place] [address] [facility] [id number] [address] [place] [address] Nov, [facility] [place] [address] [place] [id number] [address] [place] [address] Nov, Onychomycosis B35.1 ; Hammer toe M20.40 ; [place] or callus L84 and DM neuro manif type II E11.49 [facility] [place] [address] [facility] [id number] [address] [place] [address] Nov, Chronic pain G89.29 ; Leukoc ytosis D72.829 and Diabetes E11.9 [place] [address] [address] Nov, [facility] [place] [address] [place] [id number] [address] [place] [address] Oct, Bronchitis J40 [place] [address] [address] Oct, [place] [address] [address] Oct, [place] [address] [address] Oct, Mastoiditis, unspecified lat erality H70.90 and Type 2 diabetes mellitus with complication E11.8 [place] [address] [address] Sep, [place] [address] [address] Sep, Dysuria R30.0 ; Cough R05 ; Benign prostatic hyperplasia with lower urinary tract symptoms, unspecified morphology N40.1 ; Hypokalemia E87.6 and Eustachian tube dysfunction, unspecified laterality H69.80 [place] [address] [address] Sep, Moderate mixed bipolar I dis order F31.62 [place] [address] [place] [id number] [address] [place] [address] Sep, Hypokalemia E87.6 [place] [address] [address] Sep, [place] [address] [address] Sep, Upper respiratory tract infe ction, unspecified type J06.9 [place] [address] [place] [address] Aug, [facility] [place] [address] [id number] [address] [place] [address] Aug, Dysuria R30.0 [facility] [place] [address] [id number] [address] [place] [id number] Aug, [facility] [place] [address] [id number] [address] [place] [phone] Jul, [facility] [place] [address] [id number] [address] [place] [address] Jul, [facility] [place] [address] [id number] [address] [place] [address] Jul, [facility] [place] [address] [id number] [address] [place] [phone] Jul, [facility] [place] [address] [id number] [address] [place] [phone] Jun, [facility] [place] [address] [id number] [address] [place] [phone] Jun, [facility] [place] [address] [id number] [address] [place] [address] Jun, [facility] [place] [address] [facility] [id number] [address] [place] [address] May, [facility] [place] [address] [id number] [address] [place] [address] May, Bipolar I disorder, most rec ent episode (or current) mixed, moderate 296.62 [facility] [place] [address] [id number] [address] [place] [id number] 16 May, 2015 [facility] [place] [address] [facility] [id number] [address] [place] [phone] 02 May, 2015 Bipolar I disorder, most rec ent episode (or current) mixed, moderate 296.62 and Major depressive disorder, recurrent episode, severe, specified as with psychotic behavior 296.34 [facility] [place] [address] [id number] [address] [place] [phone] May, Bipolar I disorder, most rec ent episode (or current) mixed, moderate 296.62 [facility] [place] [address] [facility] [id number] [address] [place] [phone] May, [facility] [place] [address] [facility] [id number] [address] [place] [address] Apr, [facility] [place] [address] [facility] [id number] [address] [place] [address] Apr, [facility] [place] [address] [facility] [id number] [address] [place] [address] Apr, Unspecified disorder of kidn ey and ureter 593.9 and Diabetes mellitus type 2, uncontrolled 250.02 [facility] [place] [address] [facility] [id number] [address] [place] [address] Apr, [facility] [place] [address] [facility] [id number] [address] [place] [address] Apr, [facility] [place] [address] [facility] [id number] [address] [place] [id number] Apr, [facility] [place] [address] [facility] [id number] [address] [place] [address] Apr, [facility] [place] [address] [facility] [id number] [address] [place] [address] Apr, Diabetes mellitus type II, u ncontrolled 250.02 [facility] [place] [address] [id number] [address] [place] [address] Apr, [facility] [place] [address] [facility] [id number] [address] [place] [address] Mar, [facility] [place] [address] [facility] [id number] [address] [place] [address] Mar, [facility] [place] [address] [facility] [id number] [address] [place] [address] Mar, [facility] [place] [address] [place] [id number] [address] [place] [address] Mar, Major depressive disorder, r ecurrent episode, severe, specified as with psychotic behavior 296.34 and Bipolar I disorder, most recent episode (or current) mixed, moderate 296.62 [facility] [place] [address] [place] [id number] [address] [place] [address] Mar, Diabetes 250.00 ; Anuria 788 .5 ; Nausea and vomiting 787.01 and Diarrhea 787.91 [facility] [place] [address] [address] Mar, Diabetes 250.00 [facility] [place] [address] [address] Mar, [facility] [place] [address] [address] Mar, Diabetes 250.00 [facility] [place] [address] [address] Mar, [facility] [place] [address] [address] Mar, [facility] [place] [address] [address] Mar, [facility] [place] [address] [address] Mar, [facility] [place] [address] [place] [id number] [address] [place] [address] Mar, Bipolar I disorder, most rec ent episode (or current) mixed, moderate 296.62 and Major depressive disorder, recurrent episode, severe, specified as with psychotic behavior 296.34 [facility] [place] [address] [place] [id number] [address] [place] [address] Mar, Magnesium deficiency 275.2 ; Hypokalemia 276.8 ; Nausea & vomiting 787.01 and Diabetes mellitus type 2, uncontrolled 250.02 [facility] [place] [address] [address] Feb, [facility] [place] [address] [address] Feb, Bipolar I disorder, most rec ent episode (or current) mixed, moderate 296.62 [facility] [place] [address] [address] Feb, Nausea and vomiting 787.01 ; Left elbow pain 719.42 ; Anuria 788.5 and Diabetes 250.00 [place] [address] [address] Feb, [place] [address] [address] Feb, Hypopotassemia 276.8 and Hyp okalemia 276.8 [place] [address] [address] Feb, Hypopotassemia 276.8 and Hyp okalemia 276.8 [place] [address] [address] Feb, Seborrheic keratoses 702.19 [place] [address] [address] Feb, Hypopotassemia 276.8 and Low magnesium levels 275.2 [place] [address] [address] January, [facility] [place] [address] [address] January, [place] [address] [address] January, [facility] [place] [address] [address] January, Scalp lesion 709.9 [place] [address] [address] January, [facility] [address] [id number] [address] [place] [id number] Dec, Tear of medial cartilage or meniscus of knee, current 836.0 and 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 [facility] [address] [id number] [address] [place] [address], [place] [address] Dec, [facility] [address] [id number] [address] [place] [id number] Dec, [facility] [address] [id number] [address] [place] [id number] Dec, Squamous cell carcinoma, 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 [facility] [address] [id number] [address] [place] [id number] 14 Dec, 2014 [facility] [address] [id number] [address] [place] [id number] Dec, [facility] [address] [id number] [address] [place], [place] [address] Nov, [facility] [address] [id number] [address] [place] [address] Nov, [facility] [address] [id number] [address] [place] [address] Nov, [facility] [address] [id number] [address] [place] [address] Nov, [facility] [address] [id number] [address] [place] [address] Nov, [facility] [address] [id number] [address] [place] [address] Nov, [facility] [address] [id number] [address] [place] [address] Nov, [facility] [address] [id number] [address] [place] [address] Nov, [facility] [address] [id number] [address] [place] [address], [place] [address] Nov, 2014 [facility] [address] [id number] [address] [place] [address], [place] [address] Nov, [facility] [address] [id number] [address] [place] [address], [place] [address] Nov, 2014 [facility] [address] [id number] [address] [place] [address], [place] [address] Nov, 2014 [facility] [address] [id number] [address] [place] [address], [place] [address] Oct, 2014 [facility] [address] [id number] [address] [place] [address], [place] [address] Oct, 2014 [facility] [address] [id number] [address] [place] [address], [place] [address] Oct, 2014 [facility] [address] [id number] [address] [place] [address], [place] [address] Oct, 2014 [facility] [address] [id number] [address] [place] [address], [place] [address] Oct, 2014 [facility] [address] [id number] [address] [place] [address], [place] [address] Oct, 2014 [facility] [address] [id number] [address] [place] [address], [place] [address] Oct, 2014 [facility] [address] [id number] [address] [place] [address], [place] [address] Oct, [facility] [address] [id number] [address] [place] [address], [place] [address] Oct, [facility] [address] [id number] [address] [place] [address], [place] [address] Sep, [facility] [address] [id number] [address] [place] [address], [place] [address] Sep, [facility] [address] [id number] [address] [place] [address], [place] [address] Sep, [facility] [address] [id number] [address] [place] [address], [place] [address] Sep, [facility] [address] [id number] [address] [place] [address], [place] [address] Sep, [facility] [address] [id number] [address] [place] [address], [place] [address] Sep, [facility] [address] [id number] [address] [place] [address], [place] [address] Sep, [facility] [address] [id number] [address] [place] [address], [place] [address] Sep, [facility] [address] [id number] [address] [place] [address], [place] [address] Sep, [facility] [address] [id number] [address] [place] [address], [place] [address] Sep, [facility] [address] [id number] [address] [place] [address], [place] [address] Sep, [facility] [address] [id number] [address] [place] [address], [place] [address] Sep, [facility] [address] [id number] [address] [place] [address], [place] [address] Sep, [facility] [address] [id number] [address] [place] [address], [place] [address] Sep, [facility] [address] [id number] [address] [place] [address] Sep, [facility] [address] [id number] [address] [place] [address], [place] [address] Sep, [facility] [address] [id number] [address] [place] [address], [place] [address] Aug, [facility] [address] [id number] [address] [place] [address], [place] [address] Aug, [facility] [address] [id number] [facility] [place] [address] Aug, [facility] [address] [id number] [facility] [place] [address] Aug, [facility] [address] [id number] [facility] [place] [address] Aug, [facility] [address] [id number] [facility] [place] [address] Aug, [facility] [address] [id number] [facility] [place] [address] Aug, [facility] [address] [id number] [address] [place] [address], [place] [address] Aug, [facility] [address] [id number] [address] [place] [address], [place] [address] Aug, [facility] [address] [id number] [address] [place] [address], [place] [address] Aug, [facility] [address] [id number] [address] [place] [address], [place] [address] Aug, [facility] [address] [place] [id number] Aug, [facility] [address] [id number] [address] [place] [address], [place] [address] Aug, [facility] [address] [id number] [address] [place] [address], [place] [address] Aug, [facility] [address] [id number] [address] [place] [address], [place] [address] Aug, [facility] [address] [id number] [address] [place] [address], [place] [address] Aug, [facility] [address] [id number] [address] [place] [address], [place] [address] Aug, [facility] [address] [id number] [facility] [place] [address] Aug, [facility] [address] [id number] [address] [place] [address], [place] [address] 08 Aug, 2014 [facility] [address] [id number] [address] [place] [address], [place] [address] Aug, [facility] [address] [id number] [address] [place] [address], [place] [address] Aug, [facility] [address] [id number] [address] [place] [address], [place] [address] Aug, [facility] [address] [id number] [address] [place] [address], [place] [address] Aug, [facility] [address] [id number] [address] [place] [address], [place] [address] Aug, [facility] [address] [id number] [address] [place] [address], [place] [address] Aug, [facility] [address] [id number] [address] [place] [address], [place] [address] Aug, [facility] [address] [id number] [address] [place] [address], [place] [address] Aug, [facility] [address] [id number] [address] [place] [address], [place] [address] Aug, [facility] [address] [id number] [address] [place] [address], [place] [address] Aug, [facility] [address] [id number] [address] [place] [address], [place] [address] Aug, [facility] [address] [id number] [address] [place] [address], [place] [address] Jul, [facility] [address] [id number] [address] [place] [address], [place] [address] Jul, [facility] [address] [id number] [address] [place] [address], [place] [address] Jul, [facility] [address] [id number] [address] [place] [address], [place] [address] Jul, [facility] [address] [id number] [address] [place] [address], [place] [address] Jul, [facility] [address] [id number] [address] [place] [address], [place] [address] Jul, [facility] [address] [id number] [address] [place] [address], [place] [address] Jul, [facility] [address] [id number] [address] [place] [address], [place] [address] Jul, [facility] [address] [id number] [address] [place] [address], [place] [address] Jul, [facility] [address] [id number] [address] [place] [address], [place] [address] Jul, [facility] [address] [id number] [address] [place] [address], [place] [address] Jun, [facility] [address] [id number] [address] [place] [address], [place] [address] Jun, [facility] [address] [id number] [address] [place] [address], [place] [address] Jun, [facility] [address] [id number] [address] [place] [address] Jun, [facility] [address] [id number] [address] [place] [address], [place] [address] Jun, [facility] [address] [id number] [address] [place] [address] Jun, [facility] [address] [id number] [address] [place] [address], [place] [address] Jun, [facility] [address] [id number] [address] [place] [address], [place] [address] Jun, [facility] [address] [id number] [address] [place] [address], [place] [address] Jun, [facility] [address] [id number] [address] [place] [address], [place] [address] Jun, 2013 [facility] [address] [id number] [address] [place] [address], [place] [address] 29 Sep, 2013 [facility] [address] [id number] [address] [place] [address], [place] [address] 29 Sep, 2013 [facility] [address] [id number] [address] [place] [address], [place] [address] 26 Sep, 2013 [facility] [address] [id number] [address] [place] [address], [place] [address] 26 Sep, 2013 [facility] [address] [id number] [address] [place] [address], [place] [address] 17 Sep, 2013 [facility] [address] [id number] [address] [place] [address], [place] [address] 17 Sep, 2013 [facility] [address] [id number] [address] [place] [address], [place] [address] 15 Sep, 2013 [facility] [address] [id number] [address] [place] [address], [place] [address] 15 Sep, 2013 [facility] [address] [id number] [address] [place] [address], [place] [address] 15 Sep, 2013 [facility] [address] [id number] [address] [place] [address], [place] [address] 15 Sep, 2013 [facility] [address] [id number] [address] [place] [address], [place] [address] 10 Sep, 2013 [facility] [address] [id number] [address] [place] [address], [place] [address] 10 Sep, 2013 [facility] [address] [id number] [address] [place] [address], [place] [address] 09 Sep, 2013 [facility] [address] [id number] [address] [place] [address], [place] [address] 09 Sep, 2013 [facility] [address] [id number] [address] [place] [address], [place] [address] 04 Sep, 2013 [facility] [address] [id number] [facility] [place] [address] May, [facility] [address] [id number] [facility] [place] [address] Apr, [facility] [address] [id number] [facility] [place] [address] Apr, [facility] [address] [id number] [address] [place] [address], [place] [address] Apr, [facility] [address] [id number] [address] [place] [address], [place] [address] Apr, [facility] [address] [id number] [address] [place] [address], [place] [address] Apr, [facility] [address] [id number] [address] [place] [address], [place] [address] Apr, [facility] [address] [id number] [address] [place] [address], [place] [address] Apr, [facility] [address] [id number] [address] [place] [address], [place] [address] Apr, [facility] [address] [id number] [address] [place] [address], [place] [address] Apr, [facility] [address] [id number] [address] [place] [address], [place] [address] Apr, [facility] [address] [id number] [address] [place] [address], [place] [address] Apr, [facility] [address] [id number] [address] [place] [address], [place] [address] Apr, [facility] [address] [id number] [address] [place] [address], [place] [address] Apr, [facility] [address] [id number] [address] [place] [address], [place] [address] Apr, [facility] [address] [id number] [address] [place] [address], [place] [address] Apr, [facility] [address] [id number] [facility] [place] [address] Mar, [facility] [address] [id number] [address] [place] [address], [place] [address] Mar, [facility] [address] [id number] [address] [place] [address], [place] [address] Mar, [facility] [address] [id number] [address] [place] [address], [place] [address] Mar, [facility] [address] [id number] [address] [place] [address], [place] [address] Mar, [facility] [address] [id number] [address] [place] [address], [place] [address] Mar, [facility] [address] [id number] [address] [place] [address], [place] [address] Mar, [facility] [address] [id number] [address] [place] [address], [place] [address] Mar, [facility] [address] [id number] [address] [place] [address], [place] [address] Mar, [facility] [address] [id number] [address] [place] [address], [place] [address] Mar, [facility] [address] [id number] [address] [place] [address], [place] [address] Mar, [facility] [address] [id number] [address] [place] [address], [place] [address] Mar, [facility] [address] [id number] [address] [place] [address], [place] [address] Mar, [facility] [address] [id number] [address] [place] [address], [place] [address] Mar, [facility] [address] [id number] [address] [place] [address], [place] [address] Mar, 2013 [facility] [address] [id number] [facility] [place] [address] Mar, [facility] [address] [id number] [facility] [place] [address] Mar, [facility] [address] [id number] [facility] [place] [address] Mar, [facility] [address] [id number] [address] [place] [address], [place] [address] Feb, [facility] [address] [id number] [address] [place] [address], [place] [address] Feb, [facility] [address] [id number] [address] [place] [address], [place] [address] Feb, [facility] [address] [id number] [address] [place] [address], [place] [address] Feb, [facility] [address] [id number] [address] [place] [address], [place] [address] Feb, [facility] [address] [id number] [address] [place] [address], [place] [address] Feb, [facility] [address] [id number] [address] [place] [address], [place] [address] Feb, [facility] [address] [id number] [address] [place] [address], [place] [address] Feb, [facility] [address] [id number] [address] [place] [address], [place] [address] Feb, [facility] [address] [id number] [address] [place] [address], [place] [address] Feb, [facility] [address] [id number] [address] [place] [address], [place] [address] Feb, [facility] [address] [id number] [address] [place] [address], [place] [address] Feb, [facility] [address] [id number] [address] [place] [address], [place] [address] Feb, [facility] [address] [id number] [address] [place] [address], [place] [address] Feb, [facility] [address] [id number] [address] [place] [address], [place] [address] January, [facility] [address] [id number] [address] [place] [address], [place] [address] January, [facility] [address] [id number] [address] [place] [address], [place] [address] January, [facility] [address] [id number] [address] [place] [address], [place] [address] January, [facility] [address] [id number] [address] [place] [address], [place] [address] January, [facility] [address] [id number] [address] [place] [address], [place] [address] January, [facility] [address] [id number] [address] [place] [address], [place] [address] January, [facility] [address] [id number] [address] [place] [address], [place] [address] January, [facility] [address] [id number] [address] [place] [address], [place] [address] January, [facility] [address] [id number] [address] [place] [address], [place] [address] January, [facility] [address] [id number] [address] [place] [address], [place] [address] January, [facility] [address] [id number] [address] [place] [address], [place] [address] January, [facility] [address] [id number] [address] [place] [address], [place] [address] January, [facility] [address] [id number] [address] [place] [address], [place] [address] January, [facility] [address] [id number] [address] [place] [address], [place] [address] Dec, [facility] [address] [id number] [facility] [place] [address] Dec, [facility] [address] [id number] [address] [place] [address], [place] [address] Dec, [facility] [address] [id number] [address] [place] [address], [place] [address] Dec, [facility] [address] [id number] [address] [place] [address], [place] [address] Dec, [facility] [address] [id number] [address] [place] [address], [place] [address] Dec, [facility] [address] [id number] [address] [place] [address], [place] [address] Dec, [facility] [address] [id number] [address] [place] [address], [place] [address] Dec, [facility] [address] [id number] [address] [place] [address], [place] [address] Dec, [facility] [address] [id number] [address] [place] [address], [place] [address] Dec, [facility] [address] [id number] [address] [place] [address], [place] [address] Nov, [facility] [address] [id number] [address] [place] [address], [place] [address] Nov, [facility] [address] [id number] [address] [place] [address], [place] [address] Nov, [facility] [address] [id number] [address] [place] [address], [place] [address] Nov, [facility] [address] [id number] [address] [place] [address], [place] [address] Nov, [facility] [address] [id number] [address] [place] [address], [place] [address] Nov, [facility] [address] [id number] [address] [place] [address] 05 Nov, 2013 [facility] [address] [id number] [address] [place] [address], [place] [address] Nov, [facility] [address] [id number] [address] [place] [address], [place] [address] Nov, [facility] [address] [id number] [address] [place] [address], [place] [address] Nov, [facility] [address] [id number] [address] [place] [address], [place] [address] Oct, [facility] [address] [id number] [address] [place] [address], [place] [address] Oct, [facility] [address] [id number] [address] [place] [address], [place] [address] Oct, [facility] [address] [id number] [address] [place] [address], [place] [address] Oct, [facility] [address] [id number] [address] [place] [address], [place] [address] Oct, [facility] [address] [id number] [address] [place] [address], [place] [address] Oct, [facility] [address] [id number] [address] [place] [address], [place] [address] Oct, [facility] [address] [id number] [address] [place] [address], [place] [address] Oct, [facility] [address] [id number] [address] [place] [address], [place] [address] Oct, [facility] [address] [id number] [address] [place] [address], [place] [address] Oct, [facility] [address] [id number] [address] [place] [address], [place] [address] Oct, [facility] [address] [id number] [address] [place] [address], [place] [address] 04 Oct, 2013 [facility] [address] [id number] [address] [place] [address], [place] [address] Oct, [facility] [address] [id number] [address] [place] [address], [place] [address] Oct, [facility] [address] [id number] [address] [place] [address], [place] [address] Sep, [facility] [address] [id number] [address] [place] [address], [place] [address] Sep, [facility] [address] [id number] [address] [place] [address], [place] [address] Sep, [facility] [address] [id number] [address] [place] [address], [place] [address] Sep, [facility] [address] [id number] [address] [place] [address], [place] [address] Sep, [facility] [address] [id number] [address] [place] [address], [place] [address] Sep, [facility] [address] [id number] [address] [place] [address], [place] [address] Sep, [facility] [address] [id number] [address] [place] [address], [place] [address] Sep, [facility] [address] [id number] [address] [place] [address], [place] [address] Sep, [facility] [address] [id number] [address] [place] [address], [place] [address] Sep, [facility] [address] [id number] [address] [place] [address], [place] [address] Aug, [facility] [address] [id number] [address] [place] [address], [place] [address] Aug, [facility] [address] [id number] [address] [place] [address], [place] [address] Jul, [facility] [address] [id number] [address] [place] [address], [place] [address] Jul, [facility] [address] [id number] [address] [place] [address], [place] [address] Jul, [facility] [address] [id number] [address] [place] [address], [place] [address] Jul, [facility] [address] [id number] [address] [place] [address], [place] [address] Jul, [facility] [address] [id number] [address] [place] [address], [place] [address] Jul, [facility] [address] [id number] [address] [place] [address], [place] [address] Jul, [facility] [address] [id number] 77 [place] [address], [place] [address] Jul, [facility] [address] [id number] [address] [place] [address], [place] [address] Jul, [facility] [address] [id number] [address] [place] [address], [place] [address] Jul, [facility] [address] [id number] [address] [place] [address], [place] [address] Jul, [facility] [address] [id number] [address] [place] [address], [place] [address] Jul, [facility] [address] [id number] [address] [place] [address], [place] [address] Jul, [facility] [address] [id number] [address] [place] [address], [place] [address] Jul, [facility] [address] [id number] [address] [place] [address], [place] [address] Jul, [facility] [address] [id number] [address] [place] [address], [place] [address] Jul, [facility] [address] [id number] [address] [place] [address], [place] [address] Jul, [facility] [address] [id number] [address] [place] [address], [place] [address] Jul, [facility] [address] [id number] [address] [place] [address], [place] [address] Jul, [facility] [address] [id number] [address] [place] [address], [place] [address] Jun, 2012 [facility] [address] [id number] [address] [place] [address] Jun, 2012 [facility] [address] [id number] [address] [place] [address], [place] [address] Jun, 2012 [facility] [address] [id number] [address] [place] [address], [place] [address] Jun, 2012 [facility] [address] [id number] [address] [place] [address], [place] [address] Jun, [facility] [address] [id number] [address] [place] [address] Jun, [facility] [address] [id number] [address] [place] [address] Jun, [facility] [address] [id number] [address] [place] [address] Jun, [facility] [address] [id number] [address] [place] [address] Jun, [facility] [address] [id number] [address] [place] [address] Jun, [facility] [address] [id number] [address] [place] [address], [place] [address] Jun, [facility] [address] [id number] [address] [place] [address] May, [facility] [address] [id number] [address] [place] [address], [place] [address] 25 May, 2013 [facility] [address] [id number] [address] [place] [address], [place] [address] 19 May, 2012 [facility] [address] [id number] [address] [place] [address], [place] [address] 17 May, 2012 [facility] [address] [id number] [address] [place] [address], [place] [address] 11 May, 2012 [facility] [address] [id number] [address] [place] [address], [place] [address] 10 May, 2012 [facility] [address] [id number] [address] [place] [address], [place] [address] 09 May, 2013 [facility] [address] [id number] [address] [place] [address], [place] [address] 05 May, 2013 [facility] [address] [id number] [address] [place] [address], [place] [address] Apr, [facility] [address] [id number] [address] [place] [address], [place] [address] Apr, [facility] [address] [id number] [address] [place] [address], [place] [address] Apr, [facility] [address] [id number] [address] [place] [address], [place] [address] Apr, [facility] [address] [id number] [address] [place] [address], [place] [address] Apr, [facility] [address] [id number] [address] [place] [address], [place] [address] Mar, [facility] [address] [id number] [address] [place] [address], [place] [address] Mar, [facility] [address] [id number] [address] [place] [address], [place] [address] Mar, [facility] [address] [id number] [address] [place] [address], [place] [address] Mar, [facility] [address] [id number] [address] [place] [address], [place] [address] Mar, [facility] [address] [id number] [address] [place] [address], [place] [address] Mar, [facility] [address] [id number] [address] [place] [address], [place] [address] Mar, [facility] [address] [id number] [address] [place] [address], [place] [address] Mar, [facility] [address] [id number] [address] [place] [address], [place] [address] Feb, [facility] [address] [id number] [address] [place] [address], [place] [address] Feb, [facility] [address] [id number] [address] [place] [address], [place] [address] January, [facility] [address] [id number] [address] [place] [address], [place] [address] January, [facility] [address] [id number] [address] [place] [address], [place] [address] Dec, [facility] [address] [id number] [address] [place] [address], [place] [address] Dec, [facility] [address] [id number] [address] [place] [address], [place] [address] Nov, [facility] [address] [id number] [address] [place] [address], [place] [address] Nov, [facility] [address] [id number] [address] [place] [address], [place] [address] Nov, [facility] [address] [id number] [address] [place] [address], [place] [address] Nov, [facility] [address] [id number] [address] [place] [address], [place] [address] Oct, [facility] [address] [id number] [address] [place] [address], [place] [address] Oct, [facility] [address] [id number] [address] [place] [address], [place] [address] 26 Oct, 2012 [facility] [address] [id number] [address] [place] [address], [place] [address] 26 Oct, 2012 [facility] [address] [id number] [address] [place] [address], [place] [address] 16 Oct, 2012 [facility] [address] [id number] [address] [place] [address], [place] [address] 14 Oct, 2012 [facility] [address] [id number] [address] [place] [address], [place] [address] 08 Oct, 2012 [facility] [address] [id number] [address] [place] [address], [place] [address] 07 Oct, 2012 [facility] [address] [id number] [address] [place] [address], [place] [address] 03 Oct, 2012 [facility] [address] [id number] [address] [place] [address], [place] [address] 30 Sep, 2012 [facility] [address] [id number] [address] [place] [address], [place] [address] Sep, [facility] [address] [id number] [address] [place] [address], [place] [address] Sep, [facility] [address] [id number] [address] [place] [address], [place] [address] Sep, [facility] [address] [id number] [address] [place] [address], [place] [address] Sep, [facility] [address] [id number] [address] [place] [address], [place] [address] Sep, [facility] [address] [id number] [address] [place] [address], [place] [address] 09 Sep, 2012 [facility] [address] [id number] [address] [place] [address], [place] [address] 08 Sep, 2012 [facility] [address] [id number] [address] [place] [address], [place] [address] Aug, [facility] [address] [id number] [address] [place] [address], [place] [address] Aug, [facility] [address] [id number] [address] [place] [address], [place] [address] Aug, [facility] [address] [id number] [address] [place] [address], [place] [address] Aug, [facility] [address] [id number] [address] [place] [address], [place] [address] Aug, [facility] [address] [id number] [address] [place] [address], [place] [address] Aug, [facility] [address] [id number] [address] [place] [address], [place] [address] Aug, [facility] [address] [id number] [address] [place] [address], [place] [address] Aug, [facility] [address] [id number] [address] [place] [address], [place] [address] Jul, [facility] [address] [id number] [address] [place] [address], [place] [address] Jul, [facility] [address] [id number] [address] [place] [address], [place] [address] Jul, [facility] [address] [id number] [address] [place] [address], [place] [address] Jul, [facility] [address] [id number] [address] [place] [address], [place] [address] Jul, [facility] [address] [id number] [address] [place] [address], [place] [address] Jul, [facility] [address] [id number] [address] [place] [address], [place] [address] Jun, [facility] [address] [id number] [address] [place] [address], [place] [address] Jun, [facility] [address] [id number] [address] [place] [address] [place] [address] 23 Jun, 2012 [facility] [address] [id number] [address] [place] [address], [place] [address] 23 Jun, 2012 [facility] [address] [id number] [address] [place] [address], [place] [address] 22 Jun, 2012 [facility] [address] [id number] [address] [place] [address], [place] [address] 19 Jun, 2012 [facility] [address] [id number] [address] [place] [address], [place] [address] 19 Jun, 2012 [facility] [address] [id number] [address] [place] [address], [place] [address] 10 Jun, 2012 [facility] [address] [id number] [address] [place] [address], [place] [address] 10 Jun, 2012 [facility] [address] [id number] [address] [place] [address], [place] [address] 26 May, 2012 [facility] [address] [id number] [address] [place] [address], [place] [address] 24 May, 2012 [facility] [address] [id number] [address] [place] [address], [place] [address] 18 May, 2012 [facility] [address] [id number] [address] [place] [address], [place] [address] 30 Apr, 2012 [facility] [address] [id number] [address] [place] [address], [place] [address] 29 Apr, 2012 [facility] [address] [id number] [address] [place] [address], [place] [address] 18 Apr, 2012 [facility] [address] [id number] [address] [place] [address], [place] [address] 14 Apr, 2012 [facility] [address] [id number] [address] [place] [address], [place] [address] 10 Apr, 2012 [facility] [address] [id number] [address] [place] [address], [place] [address] 07 Apr, 2012 [facility] [address] [id number] [address] [place] [address], [place] [address] Mar, [facility] [address] [id number] [address] [place] [address], [place] [address] Mar, [facility] [address] [id number] [address] [place] [address], [place] [address] Mar, [facility] [address] [id number] [address] [place] [address], [place] [address] Mar, [facility] [address] [id number] [address] [place] [address], [place] [address] Feb, [facility] [address] [id number] [address] [place] [address], [place] [address] Feb, [facility] [address] [id number] [address] [place] [address], [place] [address] Feb, [facility] [address] [id number] [address] [place] [address], [place] [address] Feb, [facility] [address] [id number] [address] [place] [address], [place] [address] Feb, [facility] [address] [id number] [address] [place] [address], [place] [address] January, [facility] [address] [id number] [address] [place] [address], [place] [address] January, [facility] [address] [id number] [address] [place] [address], [place] [address] January, [facility] [address] [id number] [address] [place] [address], [place] [address] January, [facility] [address] [id number] [address] [place] [address], [place] [address] January, [facility] [address] [id number] [address] [place] [address], [place] [address] January, [facility] [address] [id number] [address] [place] [address], [place] [address] Dec, 2011 [facility] [address] [id number] [address] [place] [address], [place] [address] 24 Dec, 2011 [facility] [address] [id number] [address] [place] [address], [place] [address] 17 Dec, 2011 [facility] [address] [id number] [address] [place] [address], [place] [address] 09 Dec, 2011 [facility] [address] [id number] [address] [place] [address], [place] [address] 06 Dec, 2011 [facility] [address] [id number] [address] [place] [address], [place] [address] 27 Nov, 2011 [facility] [address] [id number] [address] [place] [address], [place] [address] 14 Nov, 2011 [facility] [address] [id number] [address] [place] [address], [place] [address] Nov, [facility] [address] [id number] [address] [place] [address], [place] [address] 07 Nov, 2011 [facility] [address] [id number] [address] [place] [address], [place] [address] 29 Oct, 2011 [facility] [address] [id number] [address] [place] [address], [place] [address] 28 Oct, 2011 [facility] [address] [id number] [address] [place] [address], [place] [address] 24 Oct, 2011 [facility] [address] [id number] [address] [place] [address], [place] [address] 13 Oct, 2011 [facility] [address] [id number] [address] [place] [address], [place] [address] 08 Oct, 2011 [facility] [address] [id number] [address] [place] [address], [place] [address] 31 Sep, 2011 [facility] [address] [id number] [address] [place] [address], [place] [address] 30 Sep, 2011 [facility] [address] [id number] [address] [place] [address], [place] [address] Sep, [facility] [address] [id number] [address] [place] [address], [place] [address] Sep, [facility] [address] [id number] [address] [place] [address], [place] [address] Sep, [facility] [address] [id number] [address] [place] [address], [place] [address] Sep, [facility] [address] [id number] [address] [place] [address], [place] [address] Aug, [facility] [address] [id number] [address] [place] [address], [place] [address] Aug, [facility] [address] [id number] [address] [place] [address], [place] [address] Aug, [facility] [address] [id number] [address] [place] [address], [place] [address] Jul, [facility] [address] [id number] [address] [place] [address], [place] [address] Jul, [facility] [address] [id number] [address] [place] [address], [place] [address] Jul, [facility] [address] [id number] [address] [place] [address], [place] [address] Jul, [facility] [address] [id number] [address] [place] [address], [place] [address] Jun, [facility] [address] [id number] [address] [place] [address], [place] [address] Jun, [facility] [address] [id number] [address] [place] [address], [place] [address] Jun, [facility] [address] [id number] [address] [place] [address], [place] [address] Jun, [facility] [address] [id number] [address] [place] [address], [place] [address] Jun, [facility] [address] [id number] [address] [place] [address], [place] [address] 10 Jun, 2011 [facility] [address] [id number] [address] [place] [address], [place] [address] 11 Mar, 2011 [facility] [address] [id number] [address] [place] [address], [place] [address] 18 Dec, 2010 [facility] [address] [id number] [address] [place] [address], [place] [address] 11 Dec, 2010 [facility] [address] [id number] [address] [place] [address], [place] [address] 18 Nov, 2010 [facility] [address] [id number] [address] [place] [address], [place] [address] 16 Nov, 2010 [facility] [address] [id number] [address] [place] [address], [place] [address] 10 Sep, 2010 [facility] [address] [id number] [address] [place] [address], [place] [address] 31 Aug, 2010 [facility] [address] [id number] [address] [place] [address], [place] [address] 29 Aug, 2010 [facility] [address] [id number] [address] [place] [address], [place] [address] 29 Aug, 2010 [facility] [address] [id number] [address] [place] [address], [place] [address] 29 Aug, 2010 [facility] [address] [id number] [address] [place] [address], [place] [address] 27 Aug, 2010 [facility] [address] [id number] [address] [place] [address], [place] [address] 14 Aug, 2010 [facility] [address] [id number] [address] [place] [address], [place] [address] 08 Aug, 2010 [facility] [address] [id number] [address] [place] [address], [place] [address] 08 Aug, 2010 [facility] [address] [id number] [address] [place] [address], [place] [address] 07 Aug, 2010 [facility] [address] [id number] [address] [place] [address], [place] [address] 06 Aug, 2010 [facility] [address] [id number] [address] [place] [address], [place] [address] Aug, [facility] [address] [id number] [address] [place] [address], [place] [address] Aug, [facility] [address] [id number] [address] [place] [address], [place] [address] Jul, [facility] [address] [id number] [address] [place] [address], [place] [address] Jul, [facility] [address] [id number] [address] [place] [address], [place] [address] Jul, [facility] [address] [id number] [address] [place] [address], [place] [address] Jul, [facility] [address] [id number] [address] [place] [address], [place] [address] Jul, [facility] [address] [id number] [address] [place] [address], [place] [address] Jul, [facility] [address] [id number] [address] [place] [address], [place] [address] 24 Jun, 2010 [facility] [address] [id number] [address] [place] [address], [place] [address] Jun, [facility] [address] [id number] [address] [place] [address], [place] [address] Jun, [facility] [address] [id number] [address] [place] [address], [place] [address] Jun, [facility] [address] [id number] [address] [place] [address], [place] [address] Apr, [facility] [address] [id number] [address] [place] [address], [place] [address] Mar, [facility] [address] [id number] [address] [place] [address], [place] [address] 17 Feb, 2010 [facility] [address] [id number] [address] [place] [address], [place] [address] January, [facility] [address] [id number] [address] [place] [address], [place] [address] 15 Dec, 2009 [facility] [address] [id number] [address] [place] [address], [place] [address] Nov, [facility] [address] [id number] [address] [place] [address], [place] [address] Aug, [facility] [address] [id number] [address] [place] [address], [place] [address] Aug, [facility] [address] [id number] [address] [place] [address], [place] [address] Aug, [facility] [address] [id number] [address] [place] [address], [place] [address] Jul, [facility] [address] [id number] [address] [place] [address], [place] [address] Jul, [facility] [address] [id number] [address] [place] [address], [place] [address] Jul, [facility] [address] [id number] [address] [place] [address], [place] [address] 30 Jun, 2009 [facility] [address] [id number] [address] [place] [address], [place] [address] 29 Jun, 2009 [facility] [address] [id number] [address] [place] [address], [place] [address] Jun, [facility] [address] [id number] [address] [place] [address], [place] [address] 22 Jun, 2009 [facility] [address] [id number] [address] [place] [address] 12 Jun, 2009 [facility] [address] [id number] [address] [place] [address] Jun, [facility] [address] [facility] [id number] [address] [place] [address] Apr, [facility] [place] [address] [facility] [id number] [address] [place] [address] Apr, [facility] [place] [address] [facility] [id number] [address] [place] [address] Feb, [facility] [place] [address] [facility] [id number] [address] [place] [address] January, [facility] [place] [address] [facility] [id number] [address] [place] [address] Dec, IMMUNIZATIONS No Known Immunizations SOCIAL HISTORY Never Assessed REASON FOR VISIT PLAN OF CARE VITAL SIGNS Height 67 in 2014-10-17 Weight 303.12 lbs 2014-10-17 Temperature 98.5 degrees Fahrenheit 2014-10-17 Heart Rate 88 bpm 2014-10-17 Respiratory Rate 28 2014-10-17 Blood pressure systolic 144 mmHg 2014-10-17 Blood pressure diastolic 86 mmHg 2014-10-17 MEDICATIONS Unknown Medications RESULTS No Results PROCEDURES [...] Medical History skin cancer-basal cell R yarsanism (removed ) Medical History Arthritis Medical History [...] History inability to urinate 09/16/15 Hospitalization History [facility] mental health ea rly 2000's Hospitalization History hyperkalemia 10/2017 Hospitalization History fluid in lung
--- OUTSIDE RECORDS SUMMARY | 2020-03-01 17:30 | XMS REPORT ---
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 Name Role Phone NOEMI WASHBURN Unavailable PROBLEMS Type Condition ICD9-CM Code QWN03-FP Code Onset Dates Condition S tatus SNOMED Code Problem Cough R05 Active 27659601 Problem Benign prostatic hyperplasia with lower urinary tract symptoms, unspecified morphology N40.1 Active 80829 6007 Problem Eustachian tube dysfunction, unspecified laterality H69.80 Active 02683309 Problem Chronic pain G89.29 Active 6502258 1 Problem DM neuro manif type II E11.49 Active 17450317 Problem Diabetes E11.9 Active 19680389 Problem Leukocytosis D72.829 Active 7222610 06 Problem Falling R29.6 Active 466719468 Problem Pressure ulcer of other site, stage 3 L89.893 Active 288408471 Problem 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 Active 686411150 Problem Eye exam abnormal R93.8 Active 16 6206249 Problem Dysuria R30.0 Active 69418706 Problem Hypokalemia E87.6 Active 03736436 Problem Morbid obesity E66.01 Active 14935 6002 Problem Anxiety F41.9 Active 27762537 Problem Diabetic polyneuropathy associated with type 2 d iabetes mellitus E11.42 Active 42036100 Problem Essential hypertension I10 Active 94474174 Problem Bilateral primary osteoarthritis of knee M17.0 Active 278177233 Problem Polyneuropathy associated with underlying disease G63 Active 470961072 Problem Anemia of chronic illness D63.8 Acti ve 797784924 Problem Lymphocytosis D72.820 Active 266020 09 Problem Retinal edema H35.81 Active 157493 6 Problem Chronic lymphocytic leukemia C91.10 A ctive 97580224 Problem Bipolar disorder, in partial remission, most rec ent episode depressed F31.75 Active 67763954 Problem Pure hypercholesterolemia E78.00 Acti ve 086446721 Problem Primary osteoarthritis of right knee M17.11 Active 162259740555906 Problem Bipolar disorder F31.9 Active 137 76720 Problem Bipolar I disorder, most recent episode (or curr ent) mixed, moderate F31.62 Active 77536240 Problem Chronic diastolic (congestive) heart failure I50.3 2 Active 633366894 Problem Reactive airway disease J45.909 Active 371714516898 Problem Insomnia, unspecified type G47.00 Act sharon 080056057 Problem Other chronic pain G89.29 Active 8 1699241 Problem Other iron deficiency anemia D50.8 A ctive 80391170 Problem Mild cognitive impairment G31.84 Acti ve 829945533 Problem Skin cancer C44.90 Active 45409267 7 ALLERGIES No Information ENCOUNTERS Encounter Location Date Diagnosis [place] [address] [facility] [id number] [address] [place] [address] Mar, [place] [address] [place] [id number] [address] [place] [address] Mar, [place] [address] [place] [id number] [address] [place] [address] Mar, [facility] [address] [facility] [id number] [address] [place] [address] Feb, Bipolar disorder F31.9 [place] [address] [facility] [id number] [address] [place] [address] Feb, Cellulitis of right upper ex tremity L03.113 and Skin abrasion T14.8XXA [place] [address] [facility] [id number] [address] [place] [address] Feb, Bipolar disorder, in partial remission, most recent episode depressed F31.75 and Mild cognitive impairment G31.84 [place] [facility] [id number] [address] [place] [address] 13 Feb, 2019 Chronic pain G89.29 [facility] [address] [facility] [id number] [address] [place] [address] Feb, Bipolar disorder, in partial remission, most recent episode depressed F31.75 and Mild cognitive impairment G31.84 [facility] [address] [id number] [address] [place] [address] January, Bipolar disorder, in partial remission, most recent episode depressed F31.75 and Mild cognitive impairment G31.84 [facility] [address] [id number] [address] [place] [address] January, Chronic pain G89.29 and Bipo lar disorder F31.9 [facility] [address] [id number] [address] [place] [address] January, Bipolar disorder, in partial remission, most recent episode depressed F31.75 and Mild cognitive impairment G31.84 [facility] [address] [id number] [address] [place] [address] Dec, [facility] [address] [id number] [address] [place] [address] Dec, Chronic pain G89.29 and Bipo lar disorder F31.9 [facility] [address] [id number] [address] [place] [address] Dec, Edema of both lower extremit ies R60.0 [facility] [address] [id number] [address] [place] [address] Dec, Bipolar disorder F31.9 [facility] [address] [id number] [address] [place] [address] Dec, Bipolar disorder, in partial remission, most recent episode depressed F31.75 and Mild cognitive impairment G31.84 [facility] [address] [id number] [address] [place] [phone] Nov, [facility] [address] [id number] [address] [place] [address] Nov, Chronic pain G89.29 [facility] [address] [id number] [address] [place] [address] Nov, Bipolar disorder, in partial remission, most recent episode depressed F31.75 and Mild cognitive impairment G31.84 [place] [id number] [place] [address] Nov, Bipolar disorder F31.[address] [address] 04 Nov, 2018 Encounter for Medicare annua [...] unspecified morphology N40.1 and Essential hypertension I10 [address] [address] 21 Oct, 2018 Chronic pain G89.29 [place] [address] [address] 18 Oct, 2018 Diabetes E11.[address] [address] 11 Oct, 2018 Bipolar I disorder, most rec ent episode (or current) mixed, moderate F31.62 and Mild cognitive impairment G31.84 [place] [address] [place] [id number] [address] [place] [address] Oct, Bipolar I disorder, most rec ent episode (or current) mixed, moderate F31.62 and Mild cognitive impairment G31.84 [place] [address] [place] [id number] [address] [place] [address] Sep, Bipolar I disorder, most rec ent episode (or current) mixed, moderate F31.62 and Mild cognitive impairment G31.84 [place] [address] [place] [id number] [address] [place] [address] Sep, [address] [place] [address] Sep, Diabetes E11.9 ; Hypoxia R09 .02 ; Hyperglycemia R73.9 ; Therapeutic drug monitoring Z51.81 ; BMI 50.0-59.9, adult Z68.43 and Skin cancer C44.90 [facility] [address] [facility] [id number] [address] [place] [address] Sep, Chronic pain G89.29 [facility] [address] [facility] [id number] [address] [place] [address] Sep, Bipolar I disorder, most rec ent episode (or current) mixed, moderate F31.62 [place] [address] [facility] [id number] [address] [place] [address] Sep, [place] [address] [facility] [id number] [address] [place] [address] Sep, [facility] [address] [place] [id number] [address] [place] [address] Aug, Chronic pain G89.29 [facility] [address] [facility] [id number] [address] [place] [address] Aug, Bipolar I disorder, most rec ent episode (or current) mixed, moderate F31.62 [place] [address] [facility] [id number] [address] [place] [address] Aug, Bipolar I disorder, most rec ent episode (or current) mixed, moderate F31.62 and Mild cognitive impairment G31.84 [facility] [address] [facility] [id number] [address] [place] [address] Jul, [facility] [address] [facility] [id number] [address] [place] [address] Jul, Chronic pain G89.29 [facility] [address] [facility] [id number] [address] [place] [address] Jul, Bipolar I disorder, most rec ent episode (or current) mixed, moderate F31.62 and Mild cognitive impairment G31.84 [place] [address] [place] [id number] [address] [place] [address] Jul, Bipolar I disorder, most rec ent episode (or current) mixed, moderate F31.62 and MCI (mild cognitive impairment) G31.84 [facility] [address] [facility] [id number] [address] [place] [address] Jul, [facility] [address] [facility] [id number] [address] [place] [address] Jul, [facility] [address] [facility] [id number] [address] [place] [address] Jul, Bipolar I disorder, most rec ent episode (or current) mixed, moderate F31.62 [place] [address] [facility] [id number] [address] [place] [address] Jul, Chronic pain G89.29 [place] [address] [facility] [id number] [address] [place] [address] Jun, Bipolar I disorder, most rec ent episode (or current) mixed, moderate F31.62 [place] [address] [facility] [id number] [address] [place] [address] Jun, Pre-procedure lab exam Z01.8 12 [place] [address] [place] [id number] [address] [place] [address] Jun, [facility] [address] [place] [id number] [place] [id number] Jun, [facility] [address] [place] [id number] [address] [place] [address] Jun, [place] [address] [facility] [id number] [address] [place] [address] Jun, Forgetfulness R68.89 ; Pre-s yncope R55 ; Localized edema R60.0 ; Other iron deficiency anemia D50.8 and BMI 50.0-59.9, adult Z68.43 [place] [address] [place] [id number] [address] [place] [address] Jun, Chronic pain G89.29 [facility] [address] [facility] [id number] [address] [place] [address] Jun, Chronic pain G89.29 [facility] [address] [facility] [id number] [address] [place] [address] Jun, Bipolar I disorder, most rec ent episode (or current) mixed, moderate F31.62 [place] [address] [place] [id number] [address] [place] [address] May, Chronic pain G89.29 [facility] [address] [place] [id number] [address] [place] [address] Apr, [place] [address] [place] [id number] [place] [address] Apr, Chronic pain G89.29 [place] [address] [place] [id number] [address] [place] [address] Apr, Primary osteoarthritis of ri t knee M17.11 [place] [address] [place] [id number] [address] [place] [address] Mar, [place] [address] [place] [id number] [place] [address] Mar, BMI 50.0-59.9, adult Z68.43 and Bipolar disorder, in partial remission, most recent episode depressed F31.75 [place] [address] [place] [id number] [address] [place] [address] Mar, Diabetes E11.9 ; Pure hyperc holesterolemia E78.00 ; Essential hypertension I10 ; Nausea with vomiting, unspecified R11.2 and Headache, unspecified headache type R51 [place] [address] [place] [id number] [address] [place] [address] Mar, Bipolar I disorder, most rec ent episode (or current) mixed, moderate F31.62 [place] [address] [place] [id number] [address] [place] [phone] Mar, Bipolar I disorder, most rec ent episode (or current) mixed, moderate F31.62 [facility] [address] [id number] [address] [place] [address] Mar, Chronic pain G89.29 [facility] [address] [id number] [address] [place] [address] Mar, Bipolar I disorder, most rec ent episode (or current) mixed, moderate F31.62 [facility] [address] [id number] [address] [place] [address] Feb, Bipolar I disorder, most rec ent episode (or current) mixed, moderate F31.62 [place] [address] [facility] [id number] [address] [place] [address] Feb, Chronic pain G89.29 [facility] [address] [facility] [id number] [address] [place] [address] Feb, Decubitus ulcer of right josselin t, stage 3 L89.893 and BMI 50.0-59.9, adult Z68.43 [facility] [address] [facility] [id number] [address] [place] [address] Feb, Bipolar I disorder, most rec ent episode (or current) mixed, moderate F31.62 [facility] [address] [facility] [id number] [address] [place] [address] Feb, [facility] [address] [facility] [id number] [address] [place] [phone] January, [facility] [address] [id number] [address] [place] [phone] January, Chronic pain G89.29 [facility] [address] [facility] [id number] [address] [place] [address] January, Bipolar I disorder, most rec ent episode (or current) mixed, moderate F31.62 [facility] [address] [facility] [id number] [address] [place] [address] January, Bipolar I disorder, most rec ent episode (or current) mixed, moderate F31.62 [facility] [address] [facility] [id number] [address] [place] [address] Dec, Bipolar I disorder, most rec ent episode (or current) mixed, moderate F31.62 and BMI 50.0-59.9, adult Z68.43 [facility] [address] [facility] [id number] [address] [place] [address] Dec, Bipolar I disorder, most rec ent episode (or current) mixed, moderate F31.62 [place] [address] [facility] [id number] [address] [place] [address] Dec, Chronic pain G89.29 [place] [address] [place] [id number] [address] [place] [address] Dec, DM neuro manif type II E11.4 9 ; Right flank pain R10.9 ; MCC 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 Z79.891 ; Encounter for medication monitoring Z51.81 and BMI 50.0-59.9, adult Z68.43 [place] [address] [facility] [id number] [address] [place] [address] Dec, Bipolar I disorder, most rec ent episode (or current) mixed, moderate F31.62 [place] [address] [facility] [id number] [address] [place] [address] Nov, Bipolar I disorder, most rec ent episode (or current) mixed, moderate F31.62 [place] [address] [facility] [id number] [address] [place] [address] Nov, Chronic pain G89.29 [facility] [address] [facility] [id number] [address] [place] [address] Nov, Bipolar I disorder, most rec ent episode (or current) mixed, moderate F31.62 [place] [address] [facility] [id number] [address] [place] [address] Nov, Hypokalemia E87.6 [place] [address] [address] Nov, Bipolar I disorder, most rec ent episode (or current) mixed, moderate F31.62 [place] [address] [address] Oct, Chronic pain G89.29 [place] [address] [address] Oct, BMI 50.0-59.9, adult Z68.43 and Bipolar I disorder, most recent episode (or current) mixed, moderate F31.62 [place] [address] [address] Oct, Bipolar I disorder, most rec ent episode (or current) mixed, moderate F31.62 [place] [address] [address] Oct, [place] [address] [address] Oct, Hypokalemia E87.6 [place] [address] [address] Oct, DM neuro manif type II E11.4 9 [place] [address] [address] Oct, Bipolar I disorder, most rec ent episode (or current) mixed, moderate F31.62 [place] [address] [address] Oct, Bipolar I disorder, most rec ent episode (or current) mixed, moderate F31.62 [place] [address] [address] 14 Oct, 2017 Hyperkalemia E87.5 ; Falling R29.6 ; BMI 50.0-59.9, adult Z68.43 and Acute left ankle pain M25.572 [place] [address] [address] 08 Oct, 2017 DM neuro manif type II E11.4 9 [place] [address] [address] Oct, [place] [address] [address] Sep, Chronic pain G89.29 [place] [address] [address] Sep, [place] [address] [address] Sep, Bilateral primary osteoarthr itis of knee M17.0 [place] [address] [address] Sep, Generalized edema R60.1 [place] [address] [address] Sep, Bipolar I disorder, most rec ent episode (or current) mixed, moderate F31.62 [place] [address] [address] Sep, Hypoxia R09.02 ; Other hyper volemia E87.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 ; Anemia of chronic illness D63.8 and BMI 50.0- 59.9, adult Z68.43 [place] [address] [address] Sep, [address] [address] Sep, Bipolar I disorder, most rec ent episode (or current) mixed, moderate F31.62 [place] [address] [address] Aug, Chronic pain G89.29 [place] [address] [place] [id number] [address] [place] [address] Aug, Generalized edema R60.1 [facility] [address] [facility] [id number] [address] [place] [address] Aug, [facility] [address] [facility] [id number] [address] [place] [address] Aug, [facility] [address] [facility] [id number] [address] [place] [address] 14 Aug, 2017 Bipolar I disorder, most rec ent episode (or current) mixed, moderate F31.62 [place] [address] [facility] [id number] [address] [place] [address] Aug, Bipolar I disorder, most rec ent episode (or current) mixed, moderate F31.62 [place] [address] [place] [id number] [address] [place] [address] Aug, Chronic pain G89.29 [facility] [address] [place] [id number] [address] [place] [address] Jul, Bipolar I disorder, most rec ent episode (or current) mixed, moderate F31.62 [place] [address] [place] [id number] [address] [place] [address] Jul, Bipolar I disorder, most rec ent episode (or current) mixed, moderate F31.62 and BMI 60.0-69.9, adult Z68.44 [place] [address] [facility] [id number] [address] [place] [address] Jul, Bipolar I disorder, most rec ent episode (or current) mixed, moderate F31.62 [place] [address] [facility] [id number] [address] [place] [address] 06 Jul, 2017 Chronic pain G89.29 [facility] [address] [facility] [id number] [address] [place] [address] 02 Jul, 2017 Bipolar I disorder, most rec ent episode (or current) mixed, moderate F31.62 [place] [address] [place] [id number] [address] [place] [address] 18 Jun, 2017 Polyneuropathy associated wi th underlying disease G63 and Diabetes E11.9 [facility] [address] [facility] [id number] [address] [place] [address] 16 Jun, 2017 Bipolar I disorder, most rec ent episode (or current) mixed, moderate F31.62 [place] [address] [place] [id number] [address] [place] [address] 09 Jun, 2017 Chronic pain G89.29 [place] [address] [place] [id number] [address] [place] [address] May, Bipolar I disorder, most rec ent episode (or current) mixed, moderate F31.62 [place] [address] [place] [id number] [address] [place] [address] May, Bipolar I disorder, most rec ent episode (or current) mixed, moderate F31.62 [place] [address] [place] [id number] [address] [place] [address] May, Diabetic polyneuropathy asso ciated with type 2 diabetes mellitus E11.42 [place] [address] [place] [id number] [address] [place] [address] 18 May, 2017 Bipolar I disorder, most rec ent episode (or current) mixed, moderate F31.62 [place] [address] [place] [id number] [address] [place] [address] May, Bipolar I disorder, most rec ent episode (or current) mixed, moderate F31.62 [place] [address] [facility] [id number] [address] [place] [address] May, Chronic pain G89.29 [facility] [address] [facility] [id number] [address] [place] [address] Apr, Bipolar I disorder, most rec ent episode (or current) mixed, moderate F31.62 [place] [address] [place] [id number] [address] [place] [address] Apr, [facility] [address] [id number] [address] [place] [address] Apr, Chronic pain G89.29 and DM n euro manif type II E11.49 [facility] [address] [id number] [address] [place] [address] Apr, [facility] [address] [id number] [address] [place] [address] Apr, Bipolar I disorder, most rec ent episode (or current) mixed, moderate F31.62 [facility] [address] [id number] [address] [place] [address] Apr, Chronic pain G89.29 [facility] [address] [id number] [address] [place] [address] Apr, Iliotibial band syndrome, le ft M76.32 [facility] [address] [id number] [address] [place] [address] Apr, Bipolar I disorder, most rec ent episode (or current) mixed, moderate F31.62 [facility] [address] [id number] [address] [place] [address] Mar, Bipolar I disorder, most rec ent episode (or current) mixed, moderate F31.62 [facility] [address] [id number] [address] [place] [address] Mar, Bipolar I disorder, most rec ent episode (or current) mixed, moderate F31.62 [facility] [address] [id number] [address] [place] [address] Mar, [facility] [address] [id number] [address] [place] [phone] Mar, Bipolar I disorder, most rec ent episode (or current) mixed, moderate F31.62 [facility] [address] [id number] [address] [place] [phone] Mar, Chronic pain G89.29 [facility] [address] [id number] [address] [place] [phone] Mar, Bipolar I disorder, most rec ent episode (or current) mixed, moderate F31.62 [facility] [address] [facility] [id number] [address] [place] [phone] Mar, Bipolar I disorder, most rec ent episode (or current) mixed, moderate F31.62 [facility] [address] [facility] [id number] [address] [place] [address] Mar, Acute pain of left knee M25. 562 ; Left hip pain M25.552 ; Generalized edema R60.1 and Tongue swelling R22.0 [facility] [address] [id number] [address] [place] [address] Mar, [facility] [address] [facility] [id number] [address] [place] [address] Feb, Chronic pain G89.29 [facility] [address] [facility] [id number] [address] [place] [address] Feb, Diabetes E11.9 [facility] [address] [id number] [address] [place] [phone] January, Chronic pain G89.29 [facility] [address] [facility] [id number] [address] [place] [phone] January, [facility] [address] [facility] [id number] [address] [place] [address] January, Bipolar I disorder, most rec ent episode (or current) mixed, moderate F31.62 [facility] [address] [facility] [id number] [address] [place] [address] Dec, Bipolar I disorder, most rec ent episode (or current) mixed, moderate F31.62 [facility] [address] [facility] [id number] [address] [place] [address] Dec, Chronic pain G89.29 [facility] [address] [facility] [id number] [address] [place] [address] Dec, Bipolar I disorder, most rec ent episode (or current) mixed, moderate F31.62 [facility] [address] [id number] [address] [place] [address] Dec, Diabetes E11.9 ; Essential h ypertension I10 ; Chronic pain G89.29 and Morbid obesity E66.01 [facility] [address] [id number] [address] [place] [phone] Dec, [facility] [address] [facility] [id number] [address] [place] [address] Dec, Bipolar I disorder, most rec ent episode (or current) mixed, moderate F31.62 [facility] [address] [facility] [id number] [address] [place] [phone] Dec, Bipolar I disorder, most rec ent episode (or current) mixed, moderate F31.62 [facility] [address] [facility] [id number] [address] [place] [address] Nov, Chronic pain G89.29 [facility] [address] [id number] [address] [place] [id number] Nov, Bipolar I disorder, most rec ent episode (or current) mixed, moderate F31.62 [facility] [address] [facility] [id number] [address] [place] [phone] Nov, [facility] [address] [facility] [id number] [address] [place] [phone] Nov, Bipolar I disorder, most rec ent episode (or current) mixed, moderate F31.62 [facility] [address] [facility] [id number] [address] [place] [phone] Nov, Bipolar I disorder, most rec ent episode (or current) mixed, moderate F31.62 [facility] [address] [facility] [id number] [address] [place] [phone] Nov, [facility] [address] [facility] [id number] [address] [place] [phone] Nov, [facility] [address] [facility] [id number] [address] [place] [address] Nov, [facility] [address] [facility] [id number] [address] [place] [address] Oct, Chronic pain G89.29 [facility] [address] [facility] [id number] [address] [place] [address] Oct, Bipolar I disorder, most rec ent episode (or current) mixed, moderate F31.62 [facility] [address] [facility] [id number] [address] [place] [address] Oct, [facility] [address] [facility] [id number] [address] [place] [address] Oct, Chronic pain G89.29 ; Diabet es E11.9 ; Anxiety F41.9 and 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 [facility] [address] [facility] [id number] [address] [place] [phone] Oct, [facility] [address] [facility] [id number] [address] [place] [address] Oct, Diabetes E11.9 [facility] [address] [facility] [id number] [address] [place] [address] Oct, Bipolar I disorder, most rec ent episode (or current) mixed, moderate F31.62 [facility] [address] [facility] [id number] [address] [place] [address] Sep, Chronic pain G89.29 [facility] [address] [facility] [id number] [address] [place] [address] Sep, Chronic pain G89.29 [facility] [address] [facility] [id number] [address] [place] [address] Aug, Chronic pain G89.29 [facility] [address] [facility] [id number] [address] [place] [phone] Jul, [facility] [address] [facility] [id number] [address] [place] [address] Jul, Diabetes E11.9 [facility] [address] [facility] [id number] [address] [place] [address] Jul, Chronic pain G89.29 [facility] [address] [facility] [id number] [address] [place] [address] Jul, Bipolar I disorder, most rec ent episode (or current) mixed, moderate F31.62 [facility] [address] [facility] [id number] [address] [place] [address] Jun, Bipolar I disorder, most rec ent episode (or current) mixed, moderate F31.62 [facility] [address] [facility] [id number] [address] [place] [address] Jun, [facility] [address] [facility] [id number] [address] [place] [phone] Jun, Bipolar I disorder, most rec ent episode (or current) mixed, moderate F31.62 [facility] [address] [facility] [id number] [address] [place] [address] 30 May, 2016 Insomnia, unspecified type G 47.00 [facility] [address] [facility] [id number] [address] [place] [address] May, Bipolar I disorder, most rec ent episode (or current) mixed, moderate F31.62 [facility] [address] [facility] [id number] [address] [place] [address] 14 May, 2016 [facility] [address] [facility] [id number] [address] [place] [id number] 08 May, 2016 Bipolar I disorder, most rec ent episode (or current) mixed, moderate F31.62 [facility] [address] [facility] [id number] [address] [place] [address] 06 May, 2016 Diabetes E11.9 and Essential hypertension I10 [facility] [address] [facility] [id number] [address] [place] [address] Apr, Chronic pain G89.29 [facility] [address] [facility] [id number] [address] [place] [phone] Apr, Bipolar I disorder, most rec ent episode (or current) mixed, moderate F31.62 [facility] [address] [facility] [id number] [address] [place] [address] Apr, [facility] [place] [address] [place] [id number] [address] [place] [id number] Apr, [facility] [address] [place] [id number] [address] [place] [phone] Mar, Chronic pain G89.29 ; Headac he, unspecified headache type R51 ; Neuropathy G62.9 ; Pain of right hip joint M25.551 and Essential hypertension I10 [facility] [address] [place] [id number] [address] [place] [address] Mar, Chronic pain G89.29 [facility] [address] [place] [id number] [address] [place] [address] Mar, Bipolar I disorder, most rec ent episode (or current) mixed, moderate F31.62 [facility] [address] [place] [id number] [address] [place] [phone] Feb, Bipolar I disorder, most rec ent episode (or current) mixed, moderate F31.62 and Insomnia, unspecified type G47.00 [facility] [address] [facility] [id number] [address] [place] [address] Feb, Chronic pain G89.29 [facility] [address] [facility] [id number] [address] [place] [address] Feb, Bipolar I disorder, most rec ent episode (or current) mixed, moderate F31.62 [facility] [facility] [address] [facility] [id number] [address] [place] [address] January, Bipolar I disorder, most rec ent episode (or current) mixed, moderate F31.62 [facility] [address] [place] [id number] [address] [place] [address] January, Chronic pain G89.29 [facility] [address] [id number] [address] [place] [address] January, Chronic pain G89.29 and Esse ntial hypertension I10 [facility] [address] [facility] [id number] [address] [place] [address] January, Bipolar I disorder, most rec ent episode (or current) mixed, moderate F31.62 [facility] [address] [facility] [id number] [address] [place] [address] Dec, [facility] [address] [facility] [id number] [address] [place] [phone] Dec, [facility] [address] [facility] [id number] [address] [place] [address] Dec, [facility] [address] [facility] [id number] [address] [place] [address] Dec, [facility] [address] [facility] [id number] [address] [place] [address] Nov, Reactive airway disease J45. 909 [facility] [address] [facility] [id number] [address] [place] [address] Nov, [facility] [address] [facility] [id number] [address] [place] [address] Nov, [facility] [address] [facility] [id number] [address] [place] [address] Nov, [facility] [address] [facility] [id number] [address] [place] [address] Nov, [facility] [address] [place] [id number] [address] [place] [address] Nov, Onychomycosis B35.1 ; Hammer toe M20.40 ; [place] or callus L84 and DM neuro manif type II E11.49 [facility] [address] [facility] [id number] [address] [place] [address] Nov, Chronic pain G89.29 ; Leukoc ytosis D72.829 and Diabetes E11.9 [place] [address] [address] Nov, [facility] [address] [address] Oct, Bronchitis J40 [place] [address] [address] Oct, [place] [address] [address] Oct, [place] [address] [address] Oct, Mastoiditis, unspecified lat erality H70.90 and Type 2 diabetes mellitus with complication E11.8 [place] [address] [address] Sep, [facility] [address] [address] Sep, Dysuria R30.0 ; Cough R05 ; Benign prostatic hyperplasia with lower urinary tract symptoms, unspecified morphology N40.1 ; Hypokalemia E87.6 and Eustachian tube dysfunction, unspecified laterality H69.80 [place] [address] [address] Sep, Moderate mixed bipolar I dis order F31.62 [facility] [address] [address] Sep, Hypokalemia E87.6 [place] [address] [address] Sep, [place] [address] [address] Sep, Upper respiratory tract infe ction, unspecified type J06.9 [place] [address] [id number] [address] [place] [address] Aug, [facility] [address] [id number] [address] [place] [address] Aug, Dysuria R30.0 [facility] [address] [id number] [address] [place] [address] Aug, [facility] [address] [id number] [address] [place] [address] Jul, [facility] [address] [id number] [address] [place] [address] Jul, [facility] [address] [id number] [address] [place] [address] Jul, [facility] [address] [id number] [address] [place] [address] Jul, [facility] [address] [id number] [address] [place] [phone] Jun, [facility] [address] [id number] [address] [place] [phone] Jun, [facility] [address] [id number] [address] [place] [address] Jun, [facility] [address] [id number] [address] [place] [address] May, [facility] [address] [id number] [address] [place] [address] May, Bipolar I disorder, most rec ent episode (or current) mixed, moderate 296.62 [facility] [address] [id number] [address] [place] [id number] 16 May, 2015 [facility] [address] [id number] [address] [place] [address] May, Bipolar I disorder, most rec ent episode (or current) mixed, moderate 296.62 and Major depressive disorder, recurrent episode, severe, specified as with psychotic behavior 296.34 [facility] [address] [id number] [address] [place] [address] May, Bipolar I disorder, most rec ent episode (or current) mixed, moderate 296.62 [facility] [address] [facility] [id number] [address] [place] [address] May, [facility] [address] [facility] [id number] [address] [place] [address] Apr, [facility] [address] [facility] [id number] [address] [place] [id number] Apr, [facility] [address] [facility] [id number] [address] [place] [address] Apr, Unspecified disorder of kidn ey and ureter 593.9 and Diabetes mellitus type 2, uncontrolled 250.02 [facility] [address] [facility] [id number] [address] [place] [phone] Apr, [facility] [address] [facility] [id number] [address] [place] [phone] Apr, [facility] [address] [facility] [id number] [address] [place] [address] Apr, [facility] [address] [facility] [id number] [address] [place] [address] Apr, [facility] [address] [facility] [id number] [address] [place] [address] Apr, Diabetes mellitus type II, u ncontrolled 250.02 [facility] [address] [id number] [address] [place] [address] Apr, [facility] [address] [facility] [id number] [address] [place] [address] Mar, [facility] [address] [facility] [id number] [address] [place] [address] Mar, [facility] [address] [facility] [id number] [address] [place] [phone] Mar, [facility] [address] [place] [id number] [address] [place] [address] Mar, Major depressive disorder, r ecurrent episode, severe, specified as with psychotic behavior 296.34 and Bipolar I disorder, most recent episode (or current) mixed, moderate 296.62 [facility] [address] [place] [id number] [address] [place] [address] Mar, Diabetes 250.00 ; Anuria 788 .5 ; Nausea and vomiting 787.01 and Diarrhea 787.91 [facility] [address] [place] [id number] [address] [place] [address] Mar, Diabetes 250.00 [facility] [address] [id number] Mar, [facility] [address] [address] Mar, Diabetes 250.00 [facility] [address] [place] [id number] [address] [place] [address] Mar, [facility] [address] [address] Mar, [facility] [address] [place] [id number] [address] [place] [address] Mar, [facility] [address] [place] [id number] [address] [place] [phone] Mar, [facility] [address] [place] [id number] [address] [place] [address] Mar, Bipolar I disorder, most rec ent episode (or current) mixed, moderate 296.62 and Major depressive disorder, recurrent episode, severe, specified as with psychotic behavior 296.34 [facility] [address] [place] [id number] [address] [place] [address] Mar, Magnesium deficiency 275.2 ; Hypokalemia 276.8 ; Nausea & vomiting 787.01 and Diabetes mellitus type 2, uncontrolled 250.02 [facility] [address] [place] [id number] [address] [place] [address] Feb, [facility] [address] [address] Feb, Bipolar I disorder, most rec ent episode (or current) mixed, moderate 296.62 [facility] [address] [place] [id number] [place] [address] Feb, Nausea and vomiting 787.01 ; Left elbow pain 719.42 ; Anuria 788.5 and Diabetes 250.00 [facility] [address] [address] Feb, [place] [address] [address] Feb, Hypopotassemia 276.8 and Hyp okalemia 276.8 [place] [address] [address] Feb, Hypopotassemia 276.8 and Hyp okalemia 276.8 [place] [address] [place] [id number] [address] [place] [address] Feb, Seborrheic keratoses 702.19 [place] [address] [place] [id number] [address] [place] [address] Feb, Hypopotassemia 276.8 and Low magnesium levels 275.2 [place] [address] [place] [id number] [address] [place] [address] January, [facility] [address] [place] [id number] [address] [place] [address] January, [facility] [address] [address] January, [facility] [address] [place] [id number] [address] [place] [address] January, Scalp lesion 709.9 [place] [address] [address] January, [facility] [address] [id number] [address] [place] [phone] 30 Dec, 2014 Tear of medial cartilage or meniscus of knee, current 836.0 and 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 [facility] [address] [id number] [address] [place] [address] Dec, [facility] [address] [id number] [address] [place] [phone] Dec, [facility] [address] [id number] [address] [place] [address] Dec, Squamous cell carcinoma, 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 [facility] [address] [id number] [address] [place] [address] 14 Dec, 2014 [facility] [address] [id number] [address] [place] [address] Dec, [facility] [address] [id number] [address] [place] [phone] Nov, [facility] [address] [id number] [address] [place] [address] Nov, [facility] [address] [id number] [address] [place] [address] Nov, [facility] [address] [id number] [address] [place] [address] Nov, [facility] [address] [id number] [address] [place] [phone] Nov, [facility] [address] [id number] [address] [place] [phone] Nov, [facility] [address] [id number] [address] [place] [phone] Nov, [facility] [address] [id number] [address] [place] [phone] Nov, [facility] [address] [id number] [address] [place] [address], [place] [address] Nov, [facility] [address] [id number] [address] [place] [address], [place] [address] Nov, [facility] [address] [id number] [address] [place] [address], [place] [address] Nov, [facility] [address] [id number] [address] [place] [address], [place] [address] Nov, [facility] [address] [id number] [address] [place] [address], [place] [address] Oct, 2014 [facility] [address] [id number] [address] [place] [address], [place] [address] Oct, 2014 [facility] [address] [id number] [address] [place] [address], [place] [address] Oct, 2014 [facility] [address] [id number] [address] [place] [address], [place] [address] Oct, [facility] [address] [id number] [address] [place] [address], [place] [address] Oct, [facility] [address] [id number] [address] [place] [address], [place] [address] Oct, [facility] [address] [id number] [address] [place] [id number] Oct, 2014 [facility] [address] [id number] [address] [place] [id number] Oct, 2014 [facility] [address] [id number] [address] [place] [address], [place] [address] Oct, [facility] [address] [id number] [address] [place] [id number] Sep, [facility] [address] [id number] [address] [place] [address] Sep, [facility] [address] [id number] [address] [place] [id number] Sep, [facility] [address] [id number] [address] [place] [address], [place] [address] Sep, [facility] [address] [id number] [address] [place] [address], [place] [address] Sep, [facility] [address] [id number] [address] [place] [address], [place] [address] Sep, [facility] [address] [id number] [address] [place] [address], [place] [address] Sep, [facility] [address] [id number] [address] [place] [address], [place] [address] Sep, [facility] [address] [id number] [address] [place] [address], [place] [address] Sep, [facility] [address] [id number] [address] [place] [address], [place] [address] Sep, [facility] [address] [id number] [address] [place] [address], [place] [address] Sep, [facility] [address] [id number] [address] [place] [address], [place] [address] Sep, [facility] [address] [id number] [address] [place] [address], [place] [address] Sep, [facility] [address] [id number] [address] [place] [address], [place] [address] Sep, [facility] [address] [id number] [address] [place] [address], [place] [address] Sep, [facility] [address] [id number] [address] [place] [address], [place] [address] Sep, [facility] [address] [id number] [address] [place] [address], [place] [address] Aug, [facility] [address] [id number] [address] [place] [address], [place] [address] Aug, [facility] [address] [id number] [facility] [place] [address] Aug, [facility] [address] [id number] [facility] [place] [address] Aug, [facility] [address] [id number] [facility] [place] [address] Aug, [facility] [address] [id number] [facility] [place] [address] Aug, [facility] [address] [id number] [facility] [place] [address] Aug, [facility] [address] [id number] [address] [place] [address], [place] [address] Aug, [facility] [address] [id number] [address] [place] [address], [place] [address] Aug, [facility] [address] [id number] [address] [place] [address], [place] [address] Aug, [facility] [address] [id number] [address] [place] [address], [place] [address] Aug, [facility] [address] [place] [id number] Aug, [facility] [address] [id number] [address] [place] [address], [place] [address] Aug, [facility] [address] [id number] [address] [place] [address], [place] [address] Aug, [facility] [address] [id number] [address] [place] [address], [place] [address] Aug, [facility] [address] [id number] [address] [place] [address], [place] [address] Aug, [facility] [address] [id number] [facility] [place] [address] Aug, [facility] [address] [id number] [address] [place] [address], [place] [address] Aug, [facility] [address] [id number] [address] [place] [address], [place] [address] Aug, [facility] [address] [id number] [address] [place] [address], [place] [address] Aug, [facility] [address] [id number] [address] [place] [address], [place] [address] Aug, [facility] [address] [id number] [address] [place] [address], [place] [address] Aug, [facility] [address] [id number] [address] [place] [address], [place] [address] Aug, [facility] [address] [id number] [address] [place] [address], [place] [address] Aug, [facility] [address] [id number] [address] [place] [address], [place] [address] Aug, [facility] [address] [id number] [address] [place] [address], [place] [address] Aug, [facility] [address] [id number] [address] [place] [address], [place] [address] Aug, [facility] [address] [id number] [address] [place] [address], [place] [address] Aug, [facility] [address] [id number] [address] [place] [address], [place] [address] Aug, [facility] [address] [id number] [address] [place] [address], [place] [address] Aug, [facility] [address] [id number] [address] [place] [address], [place] [address] Jul, [facility] [address] [id number] [address] [place] [address], [place] [address] Jul, [facility] [address] [id number] [address] [place] [address], [place] [address] Jul, [facility] [address] [id number] [address] [place] [address] Jul, [facility] [address] [id number] [address] [place] [address], [place] [address] Jul, [facility] [address] [id number] [address] [place] [address] Jul, [facility] [address] [id number] [address] [place] [address], [place] [address] Jul, [facility] [address] [id number] [address] [place] [address] Jul, [facility] [address] [id number] [address] [place] [address], [place] [address] Jul, [facility] [address] [id number] [address] [place] [address], [place] [address] Jul, [facility] [address] [id number] [address] [place] [address] Jun, [facility] [address] [id number] [address] [place] [address], [place] [address] Jun, [facility] [address] [id number] [address] [place] [address] Jun, [facility] [address] [id number] [address] [place] [address] Jun, [facility] [address] [id number] [address] [place] [address] Jun, [facility] [address] [id number] [address] [place] [address] Jun, [facility] [address] [id number] [address] [place] [address] Jun, [facility] [address] [id number] [address] [place] [address] Jun, [facility] [address] [id number] [address] [place] [address], [place] [address] Jun, [facility] [address] [id number] [address] [place] [address], [place] [address] Jun, 2013 [facility] [address] [id number] [address] [place] [address], [place] [address] 29 Sep, 2013 [facility] [address] [id number] [address] [place] [address], [place] [address] 29 Sep, 2013 [facility] [address] [id number] [address] [place] [address], [place] [address] 26 Sep, 2013 [facility] [address] [id number] [address] [place] [address], [place] [address] 26 Sep, 2013 [facility] [address] [id number] [address] [place] [address], [place] [address] 17 Sep, 2013 [facility] [address] [id number] [address] [place] [address], [place] [address] 17 Sep, 2013 [facility] [address] [id number] [address] [place] [address], [place] [address] 15 Sep, 2013 [facility] [address] [id number] [address] [place] [address], [place] [address] 15 Sep, 2013 [facility] [address] [id number] [address] [place] [address], [place] [address] 15 Sep, 2013 [facility] [address] [id number] [address] [place] [address], [place] [address] 15 May, 2013 [facility] [address] [id number] [address] [place] [address], [place] [address] 10 Sep, 2013 [facility] [address] [id number] [address] [place] [address], [place] [address] 10 Sep, 2013 [facility] [address] [id number] [address] [place] [address], [place] [address] 09 Sep, 2013 [facility] [address] [id number] [address] [place] [address], [place] [address] 09 Sep, 2013 [facility] [address] [id number] [address] [place] [address], [place] [address] May, [facility] [address] [id number] [facility] [place] [address] May, [facility] [address] [id number] [address] [place] [address], [place] [address] Apr, [facility] [address] [id number] [address] [place] [address], [place] [address] Apr, [facility] [address] [id number] [address] [place] [address], [place] [address] Apr, [facility] [address] [id number] [address] [place] [address], [place] [address] Apr, [facility] [address] [id number] [address] [place] [address], [place] [address] Apr, [facility] [address] [id number] [address] [place] [address], [place] [address] Apr, [facility] [address] [id number] [address] [place] [address], [place] [address] Apr, [facility] [address] [id number] [address] [place] [address], [place] [address] Apr, [facility] [address] [id number] [address] [place] [address], [place] [address] Apr, [facility] [address] [id number] [address] [place] [address], [place] [address] Apr, [facility] [address] [id number] [address] [place] [address], [place] [address] Apr, [facility] [address] [id number] [address] [place] [address], [place] [address] Apr, [facility] [address] [id number] [address] [place] [address], [place] [address] Apr, [facility] [address] [id number] [address] [place] [address], [place] [address] Apr, [facility] [address] [id number] [address] [place] [address], [place] [address] Apr, [facility] [address] [id number] [facility] [place] [address] Mar, [facility] [address] [id number] [address] [place] [address], [place] [address] Mar, [facility] [address] [id number] [address] [place] [address], [place] [address] Mar, 2013 [facility] [address] [id number] [address] [place] [address], [place] [address] Mar, [facility] [address] [id number] [address] [place] [address], [place] [address] Mar, [facility] [address] [id number] [address] [place] [address], [place] [address] Mar, [facility] [address] [id number] [address] [place] [address], [place] [address] Mar, [facility] [address] [id number] [address] [place] [address], [place] [address] Mar, [facility] [address] [id number] [address] [place] [address], [place] [address] Mar, [facility] [address] [id number] [address] [place] [address], [place] [address] Mar, [facility] [address] [id number] [address] [place] [address], [place] [address] Mar, 2013 [facility] [address] [id number] [address] [place] [address], [place] [address] Mar, 2013 [facility] [address] [id number] [address] [place] [address], [place] [address] Mar, 2013 [facility] [address] [id number] [address] [place] [address], [place] [address] Mar, 2013 [facility] [address] [id number] [address] [place] [address], [place] [address] Mar2013 [facility] [address] [id number] [facility] [place] [address] Mar, [facility] [address] [id number] [facility] [place] [address] Mar, [facility] [address] [id number] [facility] [place] [address] Mar, [facility] [address] [id number] [facility] [place] [address] Feb, [facility] [address] [id number] [facility] [place] [address] Feb, [facility] [address] [id number] [address] [place] [address], [place] [address] Feb, [facility] [address] [id number] [address] [place] [address], [place] [address] Feb, [facility] [address] [id number] [address] [place] [address], [place] [address] Feb, [facility] [address] [id number] [address] [place] [address], [place] [address] Feb, [facility] [address] [id number] [address] [place] [address], [place] [address] Feb, [facility] [address] [id number] [address] [place] [address], [place] [address] Feb, [facility] [address] [id number] [address] [place] [address], [place] [address] Feb, [facility] [address] [id number] [address] [place] [address], [place] [address] Feb, [facility] [address] [id number] [address] [place] [address], [place] [address] Feb, [facility] [address] [id number] [address] [place] [address], [place] [address] Feb, [facility] [address] [id number] [address] [place] [address], [place] [address] Feb, [facility] [address] [id number] [facility] [place] [address] Feb, [facility] [address] [id number] [address] [place] [address], [place] [address] January, [facility] [address] [id number] [address] [place] [address], [place] [address] January, [facility] [address] [id number] [address] [place] [address], [place] [address] January, [facility] [address] [id number] [address] [place] [address], [place] [address] January, [facility] [address] [id number] [address] [place] [address], [place] [address] January, [facility] [address] [id number] [address] [place] [address], [place] [address] January, [facility] [address] [id number] [address] [place] [address], [place] [address] January, [facility] [address] [id number] [address] [place] [address], [place] [address] January, [facility] [address] [id number] [address] [place] [address], [place] [address] January, [facility] [address] [id number] [address] [place] [address], [place] [address] January, [facility] [address] [id number] [address] [place] [address], [place] [address] January, [facility] [address] [id number] [address] [place] [address], [place] [address] January, [facility] [address] [id number] [address] [place] [address], [place] [address] January, [facility] [address] [id number] [address] [place] [address], [place] [address] January, [facility] [address] [id number] [facility] [place] [address] Dec, [facility] [address] [id number] [facility] [place] [address] Dec, [facility] [address] [id number] [address] [place] [address], [place] [address] Dec, [facility] [address] [id number] [address] [place] [address], [place] [address] Dec, [facility] [address] [id number] [address] [place] [address], [place] [address] Dec, [facility] [address] [id number] [address] [place] [address], [place] [address] Dec, [facility] [address] [id number] [address] [place] [address], [place] [address] Dec, [facility] [address] [id number] [address] [place] [address], [place] [address] Dec, [facility] [address] [id number] [address] [place] [address], [place] [address] Dec, [facility] [address] [id number] [address] [place] [address], [place] [address] Dec, [facility] [address] [id number] [address] [place] [address], [place] [address] Nov, [facility] [address] [id number] [address] [place] [address], [place] [address] Nov, [facility] [address] [id number] [address] [place] [address], [place] [address] Nov, [facility] [address] [id number] [address] [place] [address], [place] [address] Nov, [facility] [address] [id number] [address] [place] [address], [place] [address] Nov, [facility] [address] [id number] [address] [place] [address], [place] [address] Nov, [facility] [address] [id number] [facility] [place] [address] 05 Nov, 2013 [facility] [address] [id number] [address] [place] [address], [place] [address] Nov, [facility] [address] [id number] [address] [place] [address], [place] [address] Nov, [facility] [address] [id number] [address] [place] [address], [place] [address] Nov, [facility] [address] [id number] [address] [place] [address], [place] [address] Oct, [facility] [address] [id number] [address] [place] [address], [place] [address] Oct, [facility] [address] [id number] [address] [place] [address], [place] [address] Oct, [facility] [address] [id number] [address] [place] [address], [place] [address] Oct, [facility] [address] [id number] [address] [place] [address], [place] [address] Oct, [facility] [address] [id number] [address] [place] [address], [place] [address] Oct, [facility] [address] [id number] [address] [place] [address], [place] [address] Oct, [facility] [address] [id number] [address] [place] [address], [place] [address] Oct, [facility] [address] [id number] [address] [place] [address], [place] [address] Oct, [facility] [address] [id number] [address] [place] [address], [place] [address] 05 Oct, 2013 [facility] [address] [id number] [address] [place] [address], [place] [address] 04 Oct, 2013 [facility] [address] [id number] [address] [place] [address], [place] [address] 04 Oct, 2013 [facility] [address] [id number] [address] [place] [address], [place] [address] Oct, [facility] [address] [id number] [address] [place] [address], [place] [address] Oct, [facility] [address] [id number] [address] [place] [address], [place] [address] Sep, [facility] [address] [id number] [address] [place] [address], [place] [address] Sep, [facility] [address] [id number] [address] [place] [address], [place] [address] Sep, [facility] [address] [id number] [address] [place] [address], [place] [address] Sep, [facility] [address] [id number] [address] [place] [address], [place] [address] Sep, [facility] [address] [id number] [address] [place] [address], [place] [address] Sep, [facility] [address] [id number] [address] [place] [address], [place] [address] Sep, [facility] [address] [id number] [address] [place] [address], [place] [address] Sep, [facility] [address] [id number] [address] [place] [address], [place] [address] Sep, [facility] [address] [id number] [address] [place] [address], [place] [address] Sep, [facility] [address] [id number] [address] [place] [address], [place] [address] Aug, [facility] [address] [id number] [address] [place] [address], [place] [address] Aug, [facility] [address] [id number] [address] [place] [address] [address] Jul, [facility] [address] [id number] [address] [place] [address], [place] [address] Jul, [facility] [address] [id number] [address] [place] [address], [place] [address] Jul, [facility] [address] [id number] [address] [place] [address], [place] [address] Jul, [facility] [address] [id number] [address] [place] [address], [place] [address] Jul, [facility] [address] [id number] [address] [place] [address], [place] [address] Jul, [facility] [address] [id number] [address] [place] [address], [place] [address] Jul, [facility] [address] [id number] [address] [place] [address], [place] [address] Jul, [facility] [address] [id number] [address] [place] [address], [place] [address] Jul, [facility] [address] [id number] [address] [place] [address], [place] [address] Jul, [facility] [address] [id number] [address] [place] [address], [place] [address] Jul, [facility] [address] [id number] [address] [place] [address] Jul, [facility] [address] [id number] [address] [place] [address] Jul, [facility] [address] [id number] [address] [place] [address], [place] [address] Jul, [facility] [address] [id number] [address] [place] [address] Jul, [facility] [address] [id number] [address] [place] [address] Jul, [facility] [address] [id number] [address] [place] [address], [place] [address] 05 Jul, 2012 [facility] [address] [id number] [address] [place] [address], [place] [address] Jul, 2012 [facility] [address] [id number] [address] [place] [address], [place] [address] Jul, 2012 [facility] [address] [id number] [address] [place] [address], [place] [address] Jun, 2012 [facility] [address] [id number] [address] [place] [address], [place] [address] Jun, 2012 [facility] [address] [id number] [address] [place] [address], [place] [address] Jun, 2012 [facility] [address] [id number] [address] [place] [address], [place] [address] Jun, 2012 [facility] [address] [id number] [address] [place] [address], [place] [address] Jun, 2012 [facility] [address] [id number] [address] [place] [address], [place] [address] Jun, 2012 [facility] [address] [id number] [address] [place] [address], [place] [address] Jun, 2012 [facility] [address] [id number] [address] [place] [address] Jun, 2012 [facility] [address] [id number] [address] [place] [address], [place] [address] Jun, 2012 [facility] [address] [id number] [address] [place] [address] Jun, 2012 [facility] [address] [id number] [address] [place] [address], [place] [address] Jun, [facility] [address] [id number] [address] [place] [address], [place] [address] May, 2012 [facility] [address] [id number] [address] [place] [address] 25 May, 2012 [facility] [address] [id number] [address] [place] [address], [place] [address] May, 2012 [facility] [address] [id number] [address] [place] [address], [place] [address] May, [facility] [address] [id number] [address] [place] [address], [place] [address] May, [facility] [address] [id number] [address] [place] [address], [place] [address] May, [facility] [address] [id number] [address] [place] [address], [place] [address] May, [facility] [address] [id number] [address] [place] [address], [place] [address] May, [facility] [address] [id number] [address] [place] [address], [place] [address] Apr, [facility] [address] [id number] [address] [place] [address], [place] [address] Apr, [facility] [address] [id number] [address] [place] [address], [place] [address] Apr, [facility] [address] [id number] [address] [place] [address], [place] [address] Apr, [facility] [address] [id number] [address] [place] [address], [place] [address] Apr, [facility] [address] [id number] [address] [place] [address], [place] [address] Mar, [facility] [address] [id number] [address] [place] [address], [place] [address] Mar, [facility] [address] [id number] [address] [place] [address], [place] [address] Mar, [facility] [address] [id number] [address] [place] [address], [place] [address] Mar, [facility] [address] [id number] [address] [place] [address], [place] [address] Mar, [facility] [address] [id number] [facility] [place] [address] Mar, [facility] [address] [id number] [address] [place] [address], [place] [address] Mar, [facility] [address] [id number] [address] [place] [address], [place] [address] Mar, [facility] [address] [id number] [address] [place] [address], [place] [address] Feb, [facility] [address] [id number] [address] [place] [address], [place] [address] Feb, [facility] [address] [id number] [address] [place] [address], [place] [address] January, [facility] [address] [id number] [address] [place] [address], [place] [address] January, [facility] [address] [id number] [address] [place] [address], [place] [address] Dec, [facility] [address] [id number] [address] [place] [address], [place] [address] Dec, [facility] [address] [id number] [address] [place] [address], [place] [address] Nov, [facility] [address] [id number] [address] [place] [address], [place] [address] Nov, [facility] [address] [id number] [address] [place] [address], [place] [address] Nov, [facility] [address] [id number] [address] [place] [address], [place] [address] Nov, [facility] [address] [id number] [address] [place] [address], [place] [address] Oct, [facility] [address] [id number] [address] [place] [address], [place] [address] Oct, [facility] [address] [id number] [address] [place] [address], [place] [address] 26 Oct, 2012 [facility] [address] [id number] [address] [place] [address], [place] [address] 26 Oct, 2012 [facility] [address] [id number] [address] [place] [address], [place] [address] 16 Oct, 2012 [facility] [address] [id number] [address] [place] [address], [place] [address] 14 Oct, 2012 [facility] [address] [id number] [address] [place] [address], [place] [address] 08 Oct, 2012 [facility] [address] [id number] [address] [place] [address], [place] [address] 07 Oct, 2012 [facility] [address] [id number] [address] [place] [address], [place] [address] 03 Oct, 2012 [facility] [address] [id number] [address] [place] [address], [place] [address] 30 Sep, 2012 [facility] [address] [id number] [address] [place] [address], [place] [address] Sep, [facility] [address] [id number] [address] [place] [address], [place] [address] Sep, [facility] [address] [id number] [address] [place] [address], [place] [address] Sep, [facility] [address] [id number] [address] [place] [address], [place] [address] Sep, [facility] [address] [id number] [address] [place] [address], [place] [address] Sep, [facility] [address] [id number] [address] [place] [address], [place] [address] 09 Sep, 2012 [facility] [address] [id number] [address] [place] [address], [place] [address] 08 Sep, 2012 [facility] [address] [id number] [address] [place] [address], [place] [address] Aug, [facility] [address] [id number] [address] [place] [address], [place] [address] Aug, [facility] [address] [id number] [address] [place] [address], [place] [address] Aug, [facility] [address] [id number] [address] [place] [address], [place] [address] Aug, [facility] [address] [id number] [address] [place] [address], [place] [address] Aug, [facility] [address] [id number] [address] [place] [address], [place] [address] Aug, [facility] [address] [id number] [address] [place] [address], [place] [address] Aug, [facility] [address] [id number] [address] [place] [address], [place] [address] Aug, [facility] [address] [id number] [address] [place] [address], [place] [address] Jul, [facility] [address] [id number] [address] [place] [address], [place] [address] Jul, [facility] [address] [id number] [address] [place] [address], [place] [address] Jul, [facility] [address] [id number] [address] [place] [address], [place] [address] Jul, [facility] [address] [id number] [address] [place] [address], [place] [address] Jul, [facility] [address] [id number] [address] [place] [address], [place] [address] Jul, [facility] [address] [id number] [address] [place] [address], [place] [address] Jun, [facility] [address] [id number] [address] [place] [address], [place] [address] Jun, [facility] [address] [id number] [address] [place] [address], [place] [address] 23 Jun, 2012 [facility] [address] [id number] [address] [place] [address], [place] [address] 23 Jun, 2012 [facility] [address] [id number] [address] [place] [address], [place] [address] Jun, [facility] [address] [id number] [address] [place] [address], [place] [address] 19 Jun, 2012 [facility] [address] [id number] [address] [place] [address], [place] [address] 19 Jun, 2012 [facility] [address] [id number] [address] [place] [address], [place] [address] 10 Jun, 2012 [facility] [address] [id number] [address] [place] [address], [place] [address] 10 Jun, 2012 [facility] [address] [id number] [address] [place] [address], [place] [address] 26 May, 2012 [facility] [address] [id number] [address] [place] [address], [place] [address] 24 May, 2012 [facility] [address] [id number] [address] [place] [address], [place] [address] 18 May, 2012 [facility] [address] [id number] [address] [place] [address], [place] [address] 30 Apr, 2012 [facility] [address] [id number] [address] [place] [address], [place] [address] 29 Apr, 2012 [facility] [address] [id number] [address] [place] [address], [place] [address] 18 Apr, 2012 [facility] [address] [id number] [address] [place] [address], [place] [address] 14 Apr, 2012 [facility] [address] [id number] [address] [place] [address], [place] [address] 10 Apr, 2012 [facility] [address] [id number] [address] [place] [address], [place] [address] Apr, [facility] [address] [id number] [address] [place] [address], [place] [address] Mar, [facility] [address] [id number] [address] [place] [address], [place] [address] Mar, [facility] [address] [id number] [address] [place] [address], [place] [address] Mar, [facility] [address] [id number] [address] [place] [address], [place] [address] Mar, [facility] [address] [id number] [address] [place] [address], [place] [address] Feb, [facility] [address] [id number] [address] [place] [address], [place] [address] Feb, [facility] [address] [id number] [address] [place] [address], [place] [address] Feb, [facility] [address] [id number] [address] [place] [address], [place] [address] Feb, [facility] [address] [id number] [address] [place] [address], [place] [address] Feb, [facility] [address] [id number] [address] [place] [address], [place] [address] January, [facility] [address] [id number] [address] [place] [address], [place] [address] January, [facility] [address] [id number] [address] [place] [address], [place] [address] January, [facility] [address] [id number] [address] [place] [address], [place] [address] January, [facility] [address] [id number] [address] [place] [address], [place] [address] January, [facility] [address] [id number] [address] [place] [address], [place] [address] January, [facility] [address] [id number] [address] [place] [address], [place] [address] 24 Dec, 2011 [facility] [address] [id number] [address] [place] [address], [place] [address] 24 Dec, 2011 [facility] [address] [id number] [address] [place] [address], [place] [address] 17 Dec, 2011 [facility] [address] [id number] [address] [place] [address], [place] [address] 09 Dec, 2011 [facility] [address] [id number] [address] [place] [address], [place] [address] 06 Dec, 2011 [facility] [address] [id number] [address] [place] [address], [place] [address] 27 Nov, 2011 [facility] [address] [id number] [address] [place] [address], [place] [address] 14 Nov, 2011 [facility] [address] [id number] [address] [place] [address], [place] [address] 12 Nov, 2011 [facility] [address] [id number] [address] [place] [address], [place] [address] 07 Nov, 2011 [facility] [address] [id number] [address] [place] [address], [place] [address] 29 Oct, 2011 [facility] [address] [id number] [address] [place] [address], [place] [address] 28 Oct, 2011 [facility] [address] [id number] [address] [place] [address], [place] [address] 24 Oct, 2011 [facility] [address] [id number] [address] [place] [address], [place] [address] 13 Oct, 2011 [facility] [address] [id number] [address] [place] [address], [place] [address] 08 Oct, 2011 [facility] [address] [id number] [address] [place] [address], [place] [address] 31 Sep, 2011 [facility] [address] [id number] [address] [place] [address], [place] [address] 30 Sep, 2011 [facility] [address] [id number] [address] [place] [address], [place] [address] Sep, [facility] [address] [id number] [address] [place] [address], [place] [address] Sep, [facility] [address] [id number] [address] [place] [address], [place] [address] Sep, [facility] [address] [id number] [address] [place] [address], [place] [address] Sep, [facility] [address] [id number] [address] [place] [address], [place] [address] Aug, [facility] [address] [id number] [address] [place] [address], [place] [address] Aug, [facility] [address] [id number] [address] [place] [address], [place] [address] Aug, [facility] [address] [id number] [address] [place] [address], [place] [address] Jul, [facility] [address] [id number] [address] [place] [address], [place] [address] Jul, [facility] [address] [id number] [address] [place] [address] Jul, [facility] [address] [id number] [address] [place] [address] Jul, [facility] [address] [id number] [address] [place] [address] Jun, [facility] [address] [id number] [address] [place] [address], [place] [address] Jun, [facility] [address] [id number] [address] [place] [address], [place] [address] Jun, [facility] [address] [id number] [address] [place] [address] Jun, [facility] [address] [id number] [address] [place] [address] 10 Jun, 2011 [facility] [address] [id number] [address] [place] [address], [place] [address] 10 Jun, 2011 [facility] [address] [id number] [address] [place] [address], [place] [address] 11 Mar, 2011 [facility] [address] [id number] [address] [place] [address], [place] [address] 18 Dec, 2010 [facility] [address] [id number] [address] [place] [address], [place] [address] 11 Dec, 2010 [facility] [address] [id number] [address] [place] [address], [place] [address] 18 Nov, 2010 [facility] [address] [id number] [address] [place] [address], [place] [address] 16 Nov, 2010 [facility] [address] [id number] [address] [place] [address], [place] [address] 10 Sep, 2010 [facility] [address] [id number] [address] [place] [address], [place] [address] 31 Aug, 2010 [facility] [address] [id number] [address] [place] [address], [place] [address] 29 Aug, 2010 [facility] [address] [id number] [address] [place] [address], [place] [address] 29 Aug, 2010 [facility] [address] [id number] [address] [place] [address], [place] [address] 29 Aug, 2010 [facility] [address] [id number] [address] [place] [address], [place] [address] 27 Aug, 2010 [facility] [address] [id number] [address] [place] [address], [place] [address] 14 Aug, 2010 [facility] [address] [id number] [address] [place] [address], [place] [address] 08 Aug, 2010 [facility] [address] [id number] [address] [place] [address], [place] [address] 08 Aug, 2010 [facility] [address] [id number] [address] [place] [address], [place] [address] 07 Aug, 2010 [facility] [address] [id number] [address] [place] [address], [place] [address] Aug, [facility] [address] [id number] [address] [place] [address], [place] [address] Aug, [facility] [address] [id number] [address] [place] [address], [place] [address] Aug, [facility] [address] [id number] [address] [place] [address], [place] [address] Jul, [facility] [address] [id number] [address] [place] [address], [place] [address] Jul, [facility] [address] [id number] [address] [place] [address], [place] [address] Jul, [facility] [address] [id number] [address] [place] [address], [place] [address] Jul, [facility] [address] [id number] [address] [place] [address], [place] [address] Jul, [facility] [address] [id number] [address] [place] [address], [place] [address] Jul, [facility] [address] [id number] [address] [place] [address], [place] [address] 24 Jun, 2010 [facility] [address] [id number] [address] [place] [address], [place] [address] Jun, [facility] [address] [id number] [address] [place] [address], [place] [address] Jun, [facility] [address] [id number] [address] [place] [address], [place] [address] Jun, [facility] [address] [id number] [address] [place] [address], [place] [address] Apr, [facility] [address] [id number] [address] [place] [address], [place] [address] Mar, [facility] [address] [id number] [address] [place] [address], [place] [address] 17 Feb, 2010 [facility] [address] [id number] [address] [place] [address], [place] [address] January, [facility] [address] [id number] [address] [place] [address], [place] [address] 15 Dec, 2009 [facility] [address] [id number] [address] [place] [address], [place] [address] Nov, [facility] [address] [id number] [address] [place] [address], [place] [address] 31 Aug, 2009 [facility] [address] [id number] [address] [place] [address] Aug, [facility] [address] [id number] [address] [place] [address], [place] [address] Aug, [facility] [address] [id number] [address] [place] [address] Jul, [facility] [address] [id number] [address] [place] [address], [place] [address] Jul, [facility] [address] [id number] [address] [place] [address] Jul, [facility] [address] [id number] [address] [place] [address] 30 Jun, 2009 [facility] [address] [id number] [address] [place] [address] 29 Jun, 2009 [facility] [address] [id number] [address] [place] [address] Jun, [facility] [address] [id number] [address] [place] [address] Jun, [facility] [address] [id number] [address] [place] [address] Jun, [facility] [address] [id number] [address] [place] [address] Jun, [facility] [address] [facility] [id number] [address] [place] [address] Apr, [facility] [address] [facility] [id number] [address] [place] [id number] Apr, [facility] [address] [facility] [id number] [address] [place] [address] Feb, [facility] [address] [facility] [id number] [address] [place] [id number] January, [facility] [address] [facility] [id number] [address] [place] [id number] Dec, IMMUNIZATIONS No Known Immunizations SOCIAL HISTORY [...] [facility] Hospitalization History hyperkalemia 10/2017 Hospitalization History fluid in lung
--- OUTSIDE RECORDS SUMMARY | 2020-03-01 17:31 | XMS REPORT ---
Author Author Michele Verduzco Doctor Organization [facility] Address Unknown Phone Unavailable Care Team Providers Care Jewelry Coater Name Role Phone Migration, Doctor Unavailable Unavailable PROBLEMS Type Condition ICD9-CM Code COR82-[place] Code Onset Dates Condition S tatus SNOMED Code Problem Cough R05 Active 30628586 Problem Benign prostatic hyperplasia with lower urinary tract symptoms, unspecified morphology N40.1 Active 47278 6007 Problem Eustachian tube dysfunction, unspecified laterality H69.80 Active 44598715 Problem Chronic pain G89.29 Active 8720707 1 Problem DM neuro manif type II E11.49 Active 09109083 Problem Diabetes E11.9 Active 04664505 Problem Leukocytosis D72.829 Active 7199068 06 Problem Falling R29.6 Active 576454249 Problem Pressure ulcer of other site, stage 3 L89.893 Active 520171201 Problem 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 Active 977357519 Problem Eye exam abnormal R93.8 Active 16 9760245 Problem Dysuria R30.0 Active 72150033 Problem Hypokalemia E87.6 Active 00798412 Problem Morbid obesity E66.01 Active 44402 6002 Problem Anxiety F41.9 Active 95630389 Problem Diabetic polyneuropathy associated with type 2 d iabetes mellitus E11.42 Active 86775494 Problem Essential hypertension I10 Active 50166170 Problem Bilateral primary osteoarthritis of knee M17.0 Active 574668504 Problem Polyneuropathy associated with underlying disease G63 Active 077729993 Problem Anemia of chronic illness D63.8 Acti ve 925510703 Problem Lymphocytosis D72.820 Active 385665 09 Problem Retinal edema H35.81 Active 316576 6 Problem Chronic lymphocytic leukemia C91.10 A ctive 20392952 Problem Bipolar disorder, in partial remission, most rec ent episode depressed F31.75 Active 22548723 Problem Pure hypercholesterolemia E78.00 Acti ve 306323862 Problem Primary osteoarthritis of right knee M17.11 Active 666804778244100 Problem Bipolar disorder F31.9 Active 137 43834 Problem Bipolar I disorder, most recent episode (or curr ent) mixed, moderate F31.62 Active 33091092 Problem Chronic diastolic (congestive) heart failure I50.3 2 Active 311735150 Problem Reactive airway disease J45.909 Active 295845384865 Problem Insomnia, unspecified type G47.00 Act sharon 724701144 Problem Other chronic pain G89.29 Active 8 8336550 Problem Other iron deficiency anemia D50.8 A ctive 87202215 Problem Mild cognitive impairment G31.84 Acti ve 225834561 Problem Skin cancer C44.90 Active 35292410 7 ALLERGIES No Information ENCOUNTERS Encounter Location Date Diagnosis [facility] [address] [id number] [address] [place] [phone] Mar, [facility] [address] [id number] [address] [place] [address] Feb, [facility] [address] [facility] [id number] [address] [place] [phone] Feb, [facility] [address] [id number] [address] [place] [address] January, [facility] [address] [id number] [address] [place] [phone] January, [facility] [address] [facility] [id number] [address] [place] [address] January, Bipolar disorder, in partial remission, most recent episode depressed F31.75 and Mild cognitive impairment G31.84 [facility] [address] [id number] [address] [place] [phone] January, Chronic pain G89.29 and Bipo lar disorder F31.9 [facility] [address] [facility] [id number] [address] [place] [address] January, Bipolar disorder, in partial remission, most recent episode depressed F31.75 and Mild cognitive impairment G31.84 [facility] [address] [id number] [address] [place] [address] Dec, [facility] [address] [facility] [id number] [address] [place] [address] 17 Dec, 2018 Chronic pain G89.29 and Bipo lar disorder F31.9 [facility] [address] [place] [id number] [address] [place] [phone] 17 Dec, 2018 Edema of both lower extremit ies R60.0 [facility] [address] [place] [id number] [address] [place] [id number] 15 Dec, 2018 Bipolar disorder F31.9 [place] [address] [place] [id number] [address] [place] [phone] 08 Dec, 2018 Bipolar disorder, in partial remission, most recent episode depressed F31.75 and Mild cognitive impairment G31.84 [place] [address] [place] [id number] [address] [place] [address] Nov, [place] [address] [address] Nov, Chronic pain G89.29 [place] [address] [place] [address] Nov, Bipolar disorder, in partial remission, most recent episode depressed F31.75 and Mild cognitive impairment G31.84 [place] [address] [place] [id number] [address] [place] [phone] 18 Nov, 2018 Bipolar disorder F31.9 [place] [address] [place] [address] 04 Nov, 2018 Encounter for Medicare ann l wellness exam Z00.00 ; Polyneuropathy associated [...] unspecified morphology N40.1 and Essential hypertension I10 [place] [address] [place] [id number] [address] [place] [address] Oct, Chronic pain G89.29 [place] [address] [facility] [id number] [address] [place] [phone] 18 Oct, 2018 Diabetes E11.9 [place] [address] [facility] [id number] [address] [place] [phone] Oct, Bipolar I disorder, most rec ent episode (or current) mixed, moderate F31.62 and Mild cognitive impairment G31.84 [place] [address] [facility] [id number] [address] [place] [phone] Oct, Bipolar I disorder, most rec ent episode (or current) mixed, moderate F31.62 and Mild cognitive impairment G31.84 [place] [address] [place] [id number] [address] [place] [phone] Sep, Bipolar I disorder, most rec ent episode (or current) mixed, moderate F31.62 and Mild cognitive impairment G31.84 [place] [address] [place] [id number] [address] [place] [address] Sep, [place] [id number] [place] [address] Sep, Diabetes E11.9 ; Hypoxia R09 .02 ; Hyperglycemia R73.9 ; Therapeutic drug monitoring Z51.81 ; BMI 50.0-59.9, adult Z68.43 and Skin cancer C44.90 [place] [address] [facility] [id number] [address] [place] [phone] Sep, Chronic pain G89.29 [place] [address] [facility] [id number] [address] [place] [phone] Sep, Bipolar I disorder, most rec ent episode (or current) mixed, moderate F31.62 [place] [address] [facility] [id number] [address] [place] [phone] Sep, [place] [address] [place] [id number] [address] [place] [id number] Sep, [facility] [address] [id number] [address] [place] [address] Aug, Chronic pain G89.29 [facility] [address] [id number] [address] [place] [address] Aug, Bipolar I disorder, most rec ent episode (or current) mixed, moderate F31.62 [facility] [address] [id number] [address] [place] [address] Aug, Bipolar I disorder, most rec ent episode (or current) mixed, moderate F31.62 and Mild cognitive impairment G31.84 [facility] [address] [id number] [address] [place] [phone] Jul, [facility] [address] [facility] [id number] [address] [place] [address] Jul, Chronic pain G89.29 [facility] [address] [id number] [address] [place] [phone] Jul, Bipolar I disorder, most rec ent episode (or current) mixed, moderate F31.62 and Mild cognitive impairment G31.84 [facility] [address] [facility] [id number] [address] [place] [address] Jul, Bipolar I disorder, most rec ent episode (or current) mixed, moderate F31.62 and MCI (mild cognitive impairment) G31.84 [facility] [address] [id number] [address] [place] [phone] Jul, [facility] [address] [id number] [address] [place] [id number] Jul, [facility] [address] [facility] [id number] [address] [place] [id number] Jul, Bipolar I disorder, most rec ent episode (or current) mixed, moderate F31.62 [facility] [address] [facility] [id number] [address] [place] [id number] Jul, Chronic pain G89.29 [facility] [address] [id number] [address] [place] [phone] Jun, Bipolar I disorder, most rec ent episode (or current) mixed, moderate F31.62 [facility] [address] [id number] [address] [place] [id number] Jun, Pre-procedure lab exam Z01.8 12 [facility] [address] [id number] [address] [place] [phone] Jun, [facility] [address] [id number] [place] [id number] Jun, [facility] [address] [id number] [address] [place] [id number] Jun, [facility] [address] [id number] [address] [place] [phone] Jun, Forgetfulness R68.89 ; Pre-s yncope R55 ; Localized edema R60.0 ; Other iron deficiency anemia D50.8 and BMI 50.0-59.9, adult Z68.43 [facility] [address] [id number] [address] [place] [address] Jun, Chronic pain G89.29 [facility] [address] [id number] [address] [place] [id number] Jun, Chronic pain G89.29 [facility] [address] [facility] [id number] [address] [place] [id number] Jun, Bipolar I disorder, most rec ent episode (or current) mixed, moderate F31.62 [facility] [address] [id number] [address] [place] [id number] May, Chronic pain G89.29 [facility] [address] [id number] [address] [place] [address] Apr, [facility] [address] [id number] [address] [place] [id number] 10 Aug, 2018 Chronic pain G89.29 [facility] [address] [place] [id number] [address] [place] [id number] Apr, Primary osteoarthritis of ri ght knee M17.11 [facility] [address] [facility] [id number] [address] [place] [id number] Mar, [facility] [address] [place] [id number] [address] [place] [address] Mar, BMI 50.0-59.9, adult Z68.43 and Bipolar disorder, in partial remission, most recent episode depressed F31.75 [place] [address] [place] [id number] [address] [place] [address] Mar, Diabetes E11.9 ; Pure hyperc holesterolemia E78.00 ; Essential hypertension I10 ; Nausea with vomiting, unspecified R11.2 and Headache, unspecified headache type R51 [place] [address] [place] [id number] [address] [place] [phone] Mar, Bipolar I disorder, most rec ent episode (or current) mixed, moderate F31.62 [place] [address] [place] [id number] [address] [place] [address] Mar, Bipolar I disorder, most rec ent episode (or current) mixed, moderate F31.62 [place] [address] [place] [id number] [address] [place] [address] Mar, Chronic pain G89.29 [place] [address] [place] [id number] [address] [place] [address] Mar, Bipolar I disorder, most rec ent episode (or current) mixed, moderate F31.62 [place] [address] [place] [id number] [address] [place] [phone] Feb, Bipolar I disorder, most rec ent episode (or current) mixed, moderate F31.62 [place] [address] [place] [id number] [address] [place] [address] Feb, Chronic pain G89.29 [place] [address] [place] [id number] [address] [place] [address] Feb, Decubitus ulcer of right josselin t, stage 3 L89.893 and BMI 50.0-59.9, adult Z68.43 [facility] [address] [facility] [id number] [address] [place] [address] Feb, Bipolar I disorder, most rec ent episode (or current) mixed, moderate F31.62 [facility] [address] [facility] [id number] [address] [place] [id number] Feb, [facility] [address] [facility] [id number] [address] [place] [address] January, [place] [address] [facility] [id number] [address] [place] [address] January, Chronic pain G89.29 [facility] [address] [facility] [id number] [address] [place] [address] January, Bipolar I disorder, most rec ent episode (or current) mixed, moderate F31.62 [facility] [address] [facility] [id number] [address] [place] [address] January, Bipolar I disorder, most rec ent episode (or current) mixed, moderate F31.62 [place] [address] [facility] [id number] [address] [place] [address] Dec, Bipolar I disorder, most rec ent episode (or current) mixed, moderate F31.62 and BMI 50.0-59.9, adult Z68.43 [facility] [address] [facility] [id number] [address] [place] [address] Dec, Bipolar I disorder, most rec ent episode (or current) mixed, moderate F31.62 [facility] [address] [facility] [id number] [address] [place] [address] Dec, Chronic pain G89.29 [facility] [address] [facility] [id number] [address] [place] [address] 18 Apr, 2018 DM neuro manif type II E11.4 9 ; Right flank pain R10.9 ; skilled nursing 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 Z79.891 ; Encounter for medication monitoring Z51.81 and BMI 50.0-59.9, adult Z68.43 [facility] [address] [place] [id number] [address] [place] [id number] 04 Dec, 2017 Bipolar I disorder, most rec ent episode (or current) mixed, moderate F31.62 [place] [address] [place] [id number] [address] [place] [address] Nov, Bipolar I disorder, most rec ent episode (or current) mixed, moderate F31.62 [place] [address] [place] [id number] [address] [place] [address] Nov, Chronic pain G89.29 [place] [address] [place] [id number] [address] [place] [phone] Nov, Bipolar I disorder, most rec ent episode (or current) mixed, moderate F31.62 [place] [address] [place] [id number] [address] [place] [phone] Nov, Hypokalemia E87.6 [place] [address] [place] [id number] [address] [place] [phone] Nov, Bipolar I disorder, most rec ent episode (or current) mixed, moderate F31.62 [place] [address] [place] [id number] [address] [place] [address] Oct, Chronic pain G89.29 [place] [address] [place] [id number] [address] [place] [address] Oct, BMI 50.0-59.9, adult Z68.43 and Bipolar I disorder, most recent episode (or current) mixed, moderate F31.62 [place] [address] [place] [id number] [address] [place] [address] Oct, Bipolar I disorder, most rec ent episode (or current) mixed, moderate F31.62 [place] [address] [place] [id number] [place] [address] Oct, [facility] [address] [facility] [id number] [address] [place] [address] Oct, Hypokalemia E87.6 [facility] [address] [place] [id number] [address] [place] [address] Oct, DM neuro manif type II E11.4 9 [facility] [address] [place] [id number] [address] [place] [address] Oct, Bipolar I disorder, most rec ent episode (or current) mixed, moderate F31.62 [place] [address] [place] [id number] [place] [address] 20 Oct, 2017 Bipolar I disorder, most rec ent episode (or current) mixed, moderate F31.62 [place] [address] [address] 14 Oct, 2017 Hyperkalemia E87.5 ; Falling R29.6 ; BMI 50.0-59.9, adult Z68.43 and Acute left ankle pain M25.572 [place] [address] [address] Oct, DM neuro manif type II E11.4 9 [facility] [address] [place] [id number] [address] [place] [address] Oct, [facility] [address] [address] Sep, Chronic pain G89.29 [facility] [address] [place] [id number] [address] [place] [address] Sep, [place] [address] [id number] Sep, Bilateral primary osteoarthr itis of knee M17.0 [facility] [address] [place] [id number] [address] [place] [address] Sep, Generalized edema R60.1 [facility] [address] [facility] [id number] [address] [place] [id number] 16 Sep, 2017 Bipolar I disorder, most rec ent episode (or current) mixed, moderate F31.62 [facility] [address] [facility] [id number] [address] [place] [address] 15 Sep, 2017 Hypoxia R09.02 ; Other hyper volemia E87.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 ; Anemia of chronic illness D63.8 and BMI 50.0- 59.9, adult Z68.43 [place] [address] [facility] [id number] [address] [place] [phone] 03 Sep, 2017 [place] [address] [place] [id number] [address] [place] [address] Sep, Bipolar I disorder, most rec ent episode (or current) mixed, moderate F31.62 [place] [address] [facility] [id number] [address] [place] [address] Aug, Chronic pain G89.29 [place] [address] [facility] [id number] [address] [place] [address] Aug, Generalized edema R60.1 [facility] [address] [facility] [id number] [address] [place] [address] 18 Aug, 2017 [facility] [address] [facility] [id number] [address] [place] [address] Aug, [facility] [address] [facility] [id number] [address] [place] [id number] 14 Aug, 2017 Bipolar I disorder, most rec ent episode (or current) mixed, moderate F31.62 [facility] [address] [facility] [id number] [address] [place] [id number] 07 Aug, 2017 Bipolar I disorder, most rec ent episode (or current) mixed, moderate F31.62 [place] [address] [place] [id number] [address] [place] [address] Aug, Chronic pain G89.29 [facility] [address] [facility] [id number] [address] [place] [address] Jul, Bipolar I disorder, most rec ent episode (or current) mixed, moderate F31.62 [facility] [address] [place] [id number] [address] [place] [address] Jul, Bipolar I disorder, most rec ent episode (or current) mixed, moderate F31.62 and BMI 60.0-69.9, adult Z68.44 [place] [address] [facility] [id number] [address] [place] [address] Jul, Bipolar I disorder, most rec ent episode (or current) mixed, moderate F31.62 [place] [address] [place] [id number] [address] [place] [address] Jul, Chronic pain G89.29 [place] [address] [place] [id number] [address] [place] [id number] Jul, Bipolar I disorder, most rec ent episode (or current) mixed, moderate F31.62 [place] [address] [place] [id number] [address] [place] [address] Jun, Polyneuropathy associated wi th underlying disease G63 and Diabetes E11.9 [place] [address] [facility] [id number] [address] [place] [address] Jun, Bipolar I disorder, most rec ent episode (or current) mixed, moderate F31.62 [place] [address] [place] [id number] [address] [place] [address] Jun, Chronic pain G89.29 [place] [address] [place] [id number] [address] [place] [address] May, Bipolar I disorder, most rec ent episode (or current) mixed, moderate F31.62 [place] [address] [place] [id number] [address] [place] [address] May, Bipolar I disorder, most rec ent episode (or current) mixed, moderate F31.62 [facility] [address] [id number] [address] [place] [phone] 20 May, 2017 Diabetic polyneuropathy asso ciated with type 2 diabetes mellitus E11.42 [facility] [address] [id number] [address] [place] [phone] 18 May, 2017 Bipolar I disorder, most rec ent episode (or current) mixed, moderate F31.62 [facility] [address] [id number] [address] [place] [id number] 13 May, 2017 Bipolar I disorder, most rec ent episode (or current) mixed, moderate F31.62 [facility] [address] [id number] [address] [place] [id number] 12 May, 2017 Chronic pain G89.29 [facility] [address] [id number] [address] [place] [phone] Apr, Bipolar I disorder, most rec ent episode (or current) mixed, moderate F31.62 [facility] [address] [id number] [address] [place] [phone] Apr, [facility] [address] [id number] [address] [place] [phone] Apr, Chronic pain G89.29 and DM n euro manif type II E11.49 [facility] [address] [id number] [address] [place] [id number] Apr, [facility] [address] [id number] [address] [place] [phone] Apr, Bipolar I disorder, most rec ent episode (or current) mixed, moderate F31.62 [facility] [address] [id number] [address] [place] [phone] Apr, Chronic pain G89.29 [facility] [address] [id number] [address] [place] [phone] Apr, Iliotibial band syndrome, le ft M76.32 [facility] [address] [facility] [id number] [address] [place] [phone] Apr, Bipolar I disorder, most rec ent episode (or current) mixed, moderate F31.62 [facility] [address] [facility] [id number] [address] [place] [phone] Mar, Bipolar I disorder, most rec ent episode (or current) mixed, moderate F31.62 [facility] [address] [facility] [id number] [address] [place] [phone] Mar, Bipolar I disorder, most rec ent episode (or current) mixed, moderate F31.62 [facility] [address] [facility] [id number] [address] [place] [phone] Mar, [facility] [address] [place] [id number] [address] [place] [phone] Mar, Bipolar I disorder, most rec ent episode (or current) mixed, moderate F31.62 [facility] [address] [facility] [id number] [address] [place] [phone] Mar, Chronic pain G89.29 [facility] [address] [facility] [id number] [address] [place] [phone] Mar, Bipolar I disorder, most rec ent episode (or current) mixed, moderate F31.62 [facility] [address] [facility] [id number] [address] [place] [phone] Mar, Bipolar I disorder, most rec ent episode (or current) mixed, moderate F31.62 [facility] [address] [facility] [id number] [address] [place] [phone] Mar, Acute pain of left knee M25. 562 ; Left hip pain M25.552 ; Generalized edema R60.1 and Tongue swelling R22.0 [facility] [address] [facility] [id number] [address] [place] [phone] Mar, [facility] [address] [place] [id number] [address] [place] [phone] Feb, Chronic pain G89.29 [facility] [address] [id number] [address] [place] [id number] Feb, Diabetes E11.9 [facility] [address] [id number] [address] [place] [phone] January, Chronic pain G89.29 [facility] [address] [id number] [address] [place] [phone] January, [facility] [address] [id number] [address] [place] [phone] January, Bipolar I disorder, most rec ent episode (or current) mixed, moderate F31.62 [facility] [address] [id number] [address] [place] [phone] Dec, Bipolar I disorder, most rec ent episode (or current) mixed, moderate F31.62 [place] [id number] [facility] [id number] [address] [place] [id number] Dec, Chronic pain G89.29 [facility] [address] [id number] [address] [place] [id number] Dec, Bipolar I disorder, most rec ent episode (or current) mixed, moderate F31.62 [facility] [address] [facility] [id number] [address] [place] [phone] Dec, Diabetes E11.9 ; Essential h ypertension I10 ; Chronic pain G89.29 and Morbid obesity E66.01 [facility] [address] [id number] [address] [place] [phone] Dec, [facility] [address] [facility] [id number] [address] [place] [phone] Dec, Bipolar I disorder, most rec ent episode (or current) mixed, moderate F31.62 [facility] [address] [facility] [id number] [address] [place] [id number] Dec, Bipolar I disorder, most rec ent episode (or current) mixed, moderate F31.62 [facility] [address] [id number] [address] [place] [phone] Nov, Chronic pain G89.29 [facility] [address] [id number] [address] [place] [phone] Nov, Bipolar I disorder, most rec ent episode (or current) mixed, moderate F31.62 [facility] [address] [id number] [address] [place] [phone] Nov, [facility] [address] [id number] [address] [place] [id number] Nov, Bipolar I disorder, most rec ent episode (or current) mixed, moderate F31.62 [facility] [address] [facility] [id number] [address] [place] [id number] Nov, Bipolar I disorder, most rec ent episode (or current) mixed, moderate F31.62 [facility] [address] [facility] [id number] [address] [place] [phone] Nov, [facility] [address] [facility] [id number] [address] [place] [phone] Nov, [facility] [address] [facility] [id number] [address] [place] [phone] Nov, [facility] [address] [facility] [id number] [address] [place] [phone] Oct, Chronic pain G89.29 [facility] [address] [facility] [id number] [address] [place] [phone] Oct, Bipolar I disorder, most rec ent episode (or current) mixed, moderate F31.62 [facility] [address] [id number] [address] [place] [id number] Oct, [facility] [address] [facility] [id number] [address] [place] [phone] Oct, Chronic pain G89.29 ; Diabet es E11.9 ; Anxiety F41.9 and 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 [facility] [address] [id number] [address] [place] [phone] Oct, [facility] [address] [facility] [id number] [address] [place] [phone] Oct, Diabetes E11.9 [facility] [address] [id number] [address] [place] [phone] Oct, Bipolar I disorder, most rec ent episode (or current) mixed, moderate F31.62 [facility] [address] [id number] [address] [place] [phone] Sep, Chronic pain G89.29 [facility] [address] [facility] [id number] [address] [place] [phone] Sep, Chronic pain G89.29 [facility] [address] [facility] [id number] [address] [place] [id number] Aug, Chronic pain G89.29 [facility] [address] [id number] [address] [place] [id number] Jul, [facility] [address] [facility] [id number] [address] [place] [phone] Jul, Diabetes E11.9 [facility] [address] [facility] [id number] [address] [place] [address] Jul, Chronic pain G89.29 [facility] [address] [facility] [id number] [address] [place] [id number] Jul, Bipolar I disorder, most rec ent episode (or current) mixed, moderate F31.62 [facility] [address] [facility] [id number] [address] [place] [id number] Jun, Bipolar I disorder, most rec ent episode (or current) mixed, moderate F31.62 [facility] [address] [facility] [id number] [address] [place] [phone] Jun, [facility] [address] [facility] [id number] [address] [place] [phone] Jun, Bipolar I disorder, most rec ent episode (or current) mixed, moderate F31.62 [facility] [address] [facility] [id number] [address] [place] [phone] 30 May, 2016 Insomnia, unspecified type G 47.00 [place] [address] [facility] [id number] [address] [place] [phone] May, Bipolar I disorder, most rec ent episode (or current) mixed, moderate F31.62 [place] [address] [facility] [id number] [address] [place] [phone] 14 May, 2016 [place] [address] [place] [id number] [address] [place] [phone] May, Bipolar I disorder, most rec ent episode (or current) mixed, moderate F31.62 [place] [address] [place] [id number] [address] [place] [id number] May, Diabetes E11.9 and Essential hypertension I10 [place] [address] [facility] [id number] [address] [place] [address] Apr, Chronic pain G89.29 [place] [address] [place] [id number] [address] [place] [phone] Apr, Bipolar I disorder, most rec ent episode (or current) mixed, moderate F31.62 [place] [address] [place] [id number] [address] [place] [phone] Apr, [place] [address] [place] [id number] [address] [place] [phone] Apr, [place] [address] [place] [id number] [address] [place] [id number] Mar, Chronic pain G89.29 ; Headac he, unspecified headache type R51 ; Neuropathy G62.9 ; Pain of right hip joint M25.551 and Essential hypertension I10 [place] [address] [id number] [address] [place] [id number] Mar, Chronic pain G89.29 [facility] [address] [id number] [address] [place] [id number] Mar, Bipolar I disorder, most rec ent episode (or current) mixed, moderate F31.62 [facility] [address] [facility] [id number] [address] [place] [phone] Feb, Bipolar I disorder, most rec ent episode (or current) mixed, moderate F31.62 and Insomnia, unspecified type G47.00 [facility] [address] [id number] [address] [place] [phone] Feb, Chronic pain G89.29 [facility] [address] [facility] [id number] [address] [place] [phone] Feb, Bipolar I disorder, most rec ent episode (or current) mixed, moderate F31.62 [facility] [address] [facility] [id number] [address] [place] [id number] January, Bipolar I disorder, most rec ent episode (or current) mixed, moderate F31.62 [facility] [address] [facility] [id number] [address] [place] [address] January, Chronic pain G89.29 [facility] [address] [facility] [id number] [address] [place] [id number] January, Chronic pain G89.29 and Esse ntial hypertension I10 [facility] [address] [id number] [address] [place] [phone] January, Bipolar I disorder, most rec ent episode (or current) mixed, moderate F31.62 [facility] [address] [facility] [id number] [address] [place] [phone] Dec, [facility] [address] [facility] [id number] [address] [place] [phone] Dec, [facility] [address] [facility] [id number] [address] [place] [phone] Dec, [facility] [address] [facility] [id number] [address] [place] [phone] Dec, [facility] [address] [facility] [id number] [address] [place] [id number] Nov, Reactive airway disease J45. 909 [facility] [address] [place] [id number] [address] [place] [phone] Nov, [facility] [address] [place] [id number] [place] [phone] Nov, [facility] [address] [facility] [id number] [address] [place] [phone] Nov, [facility] [address] [place] [id number] [place] [phone] Nov, [facility] [address] [phone] Nov, Onychomycosis B35.1 ; Hammer toe M20.40 ; [place] or callus L84 and DM neuro manif type II E11.49 [facility] [address] [id number] Nov, Chronic pain G89.29 ; Leukoc ytosis D72.829 and Diabetes E11.9 [facility] [address] [place] [id number] [address] [place] [address] Nov, [facility] [address] [place] [id number] [address] [place] [phone] Oct, Bronchitis J40 [facility] [address] [facility] [id number] [address] [place] [phone] Oct, [facility] [address] [place] [id number] [address] [place] [id number] Oct, [facility] [address] [place] [id number] [address] [place] [phone] Oct, Mastoiditis, unspecified lat erality H70.90 and Type 2 diabetes mellitus with complication E11.8 [facility] [address] [facility] [id number] [address] [place] [id number] Sep, [facility] [address] [place] [id number] [address] [place] [id number] Sep, Dysuria R30.0 ; Cough R05 ; Benign prostatic hyperplasia with lower urinary tract symptoms, unspecified morphology N40.1 ; Hypokalemia E87.6 and Eustachian tube dysfunction, unspecified laterality H69.80 [facility] [address] [place] [id number] [address] [place] [phone] Sep, Moderate mixed bipolar I dis order F31.62 [facility] [address] [place] [id number] [address] [place] [phone] Sep, Hypokalemia E87.6 [place] [address] [place] [id number] [address] [place] [phone] Sep, [facility] [address] [place] [id number] [address] [place] [phone] Sep, Upper respiratory tract infe ction, unspecified type J06.9 [facility] [address] [place] [id number] [address] [place] [phone] Aug, [facility] [address] [place] [id number] [address] [place] [phone] Aug, Dysuria R30.0 [facility] [address] [place] [id number] [address] [place] [id number] Aug, [facility] [address] [place] [id number] [address] [place] [id number] Jul, [facility] [address] [place] [id number] [address] [place] [phone] Jul, [facility] [address] [place] [id number] [address] [place] [phone] Jul, [facility] [address] [place] [id number] [address] [place] [phone] Jul, [facility] [address] [facility] [id number] [address] [place] [phone] Jun, [facility] [address] [place] [id number] [address] [place] [phone] Jun, [facility] [address] [place] [id number] [address] [place] [phone] Jun, [facility] [address] [place] [id number] [address] [place] [phone] May, [facility] [address] [place] [id number] [address] [place] [phone] May, Bipolar I disorder, most rec ent episode (or current) mixed, moderate 296.62 [facility] [address] [place] [id number] [place] [phone] May, [facility] [address] [place] [id number] [address] [place] [phone] May, Bipolar I disorder, most rec ent episode (or current) mixed, moderate 296.62 and Major depressive disorder, recurrent episode, severe, specified as with psychotic behavior 296.34 [facility] [address] [place] [id number] [address] [place] [address] May, Bipolar I disorder, most rec ent episode (or current) mixed, moderate 296.62 [facility] [address] [place] [id number] [address] [place] [phone] May, [facility] [address] [place] [id number] [address] [place] [phone] Apr, [facility] [address] [place] [id number] [address] [place] [phone] Apr, [facility] [address] [place] [id number] [address] [place] [phone] Apr, Unspecified disorder of kidn ey and ureter 593.9 and Diabetes mellitus type 2, uncontrolled 250.02 [facility] [address] [facility] [id number] [address] [place] [phone] Apr, [facility] [address] [facility] [id number] [address] [place] [address] Apr, [facility] [address] [facility] [id number] [address] [place] [phone] Apr, [facility] [address] [place] [id number] [address] [place] [phone] Apr, [facility] [address] [facility] [id number] [address] [place] [id number] Apr, Diabetes mellitus type II, u ncontrolled 250.02 [facility] [address] [facility] [id number] [address] [place] [phone] Apr, [facility] [address] [phone] Mar, [facility] [address] [place] [id number] [address] [place] [id number] Mar, [facility] [address] [facility] [id number] [address] [place] [phone] Mar, [facility] [address] [place] [id number] [address] [place] [id number] Mar, Major depressive disorder, r ecurrent episode, severe, specified as with psychotic behavior 296.34 and Bipolar I disorder, most recent episode (or current) mixed, moderate 296.62 [facility] [address] [place] [id number] [address] [place] [address] Mar, Diabetes 250.00 ; Anuria 788 .5 ; Nausea and vomiting 787.01 and Diarrhea 787.91 [facility] [address] [place] [id number] [address] [place] [id number] Mar, Diabetes 250.00 [facility] [address] [place] [id number] [address] [place] [phone] Mar, [facility] [address] [place] [id number] [address] [place] [address] Mar, Diabetes 250.00 [facility] [address] [address] Mar, [facility] [address] [address] Mar, [facility] [address] [address] Mar, [facility] [address] [address] Mar, [place] [address] [address] Mar, Bipolar I disorder, most rec ent episode (or current) mixed, moderate 296.62 and Major depressive disorder, recurrent episode, severe, specified as with psychotic behavior 296.[address] [address] Mar, Magnesium deficiency 275.2 ; Hypokalemia 276.8 ; Nausea & vomiting 787.01 and Diabetes mellitus type 2, uncontrolled 250.[address] [address] Feb, [address] [address] Feb, Bipolar I disorder, most rec ent episode (or current) mixed, moderate 296.62 [place] [address] [address] Feb, Nausea and vomiting 787.01 ; Left elbow pain 719.42 ; Anuria 788.5 and Diabetes 250.00 [facility] [address] [place] [id number] [address] [place] [phone] Feb, [facility] [address] [address] Feb, Hypopotassemia 276.8 and Hyp okalemia 276.8 [facility] [address] [id number] [address] [place] [id number] Feb, Hypopotassemia 276.8 and Hyp okalemia 276.8 [facility] [address] [id number] [address] [place] [id number] Feb, Seborrheic keratoses 702.19 [facility] [address] [facility] [id number] [address] [place] [id number] Feb, Hypopotassemia 276.8 and Low magnesium levels 275.2 [facility] [address] [id number] [address] [place] [phone] January, [facility] [address] [facility] [id number] [address] [place] [id number] January, [facility] [address] [facility] [id number] [address] [place] [id number] January, [facility] [address] [facility] [id number] [address] [place] [phone] January, Scalp lesion 709.9 [facility] [address] [facility] [id number] [address] [place] [phone] January, [facility] [address] [facility] [id number] [address] [place] [phone] Dec, Tear of medial cartilage or meniscus of knee, current 836.0 and 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 [facility] [address] [facility] [id number] [address] [place] [id number] Dec, [facility] [address] [id number] [address] [place] [address] Dec, [facility] [address] [facility] [id number] [address] [place] [phone] Dec, Squamous cell carcinoma, 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 [facility] [address] [facility] [id number] [address] [place] [id number] 14 Dec, 2014 [facility] [address] [id number] [address] [place] [address], [place] [address] 13 Dec, 2014 [facility] [address] [id number] [address] [place] [address], [place] [id number] Nov, [facility] [address] [id number] [address] [place] [address], [place] [id number] Nov, [facility] [address] [id number] [address] [place] [address], [place] [id number] Nov, [facility] [address] [id number] [address] [place] [address], [place] [address] Nov, [facility] [address] [id number] [address] [place] [address], [place] [id number] Nov, [facility] [address] [id number] [address] [place] [address], [place] [address] Nov, [facility] [address] [id number] [address] [place] [address], [place] [id number] Nov, [facility] [address] [id number] [address] [place] [address], [place] [id number] Nov, [facility] [address] [id number] [address] [place] [address], [place] [address] Nov, [facility] [address] [id number] [address] [place] [address], [place] [address] Nov, [facility] [address] [id number] [address] [place] [address], [place] [id number] Nov, [facility] [address] [id number] [address] [place] [address], [place] [id number] Nov, [facility] [address] [id number] [address] [place] [address], [place] [id number] Oct, [facility] [address] [id number] [address] [place] [address], [place] [address] Oct, [facility] [address] [id number] [address] [place] [address], [place] [id number] Oct, 2014 [facility] [address] [id number] [address] [place] [address], [place] [id number] Oct, 2014 [facility] [address] [id number] [address] [place] [address], [place] [id number] Oct, 2014 [facility] [address] [id number] [address] [place] [address], [place] [id number] Oct, 2014 [facility] [address] [id number] [address] [place] [address], [place] [id number] Oct, 2014 [facility] [address] [id number] [address] [place] [address], [place] [id number] Oct, 2014 [facility] [address] [id number] [address] [place] [address], [place] [id number] Oct, [facility] [address] [id number] [address] [place] [address], [place] [id number] Sep, [facility] [address] [id number] [address] [place] [address], [place] [id number] Sep, [facility] [address] [id number] [address] [place] [address], [place] [address] Sep, [facility] [address] [id number] [address] [place] [address], [place] [id number] Sep, [facility] [address] [id number] [address] [place] [address], [place] [id number] Sep, [facility] [facility] [address] [id number] [address] [place] [address] Sep, [facility] [address] [id number] [address] [place] [address], [place] [address] Sep, [facility] [address] [id number] [address] [place] [address], [place] [address] Sep, [facility] [address] [id number] [address] [place] [address] Sep, [facility] [address] [id number] [address] [place] [address], [place] [address] 14 Sep, 2014 [facility] [address] [id number] [address] [place] [address], [place] [address] Sep, [facility] [address] [id number] [address] [place] [address], [place] [address] Sep, [facility] [address] [id number] [address] [place] [address], [place] [address] Sep, [facility] [address] [id number] [address] [place] [address], [place] [address] Sep, [facility] [address] [id number] [address] [place] [address], [place] [address] Sep, [facility] [address] [id number] [address] [place] [address], [place] [address] Sep, [facility] [address] [id number] [address] [place] [address], [place] [address] Aug, [facility] [address] [id number] [address] [place] [address], [place] [address] Aug, [facility] [address] [id number] [address] [place] [address], [place] [address] Aug, [facility] [address] [id number] [address] [place] [address], [place] [address] 31 Aug, 2014 [facility] [address] [id number] [address] [place] [address], [place] [address] 31 Aug, 2014 [facility] [address] [id number] [address] [place] [address], [place] [address] 31 Aug, 2014 [facility] [address] [id number] [address] [place] [address], [place] [address] 17 Aug, 2014 [facility] [address] [id number] [address] [place] [address], [place] [address] 17 Aug, 2014 [facility] [address] [id number] [address] [place] [address], [place] [address] Aug, [facility] [address] [id number] [facility] [place] [address] Aug, [facility] [address] [id number] [address] [place] [address], [place] [address] Aug, [facility] [place] [id number] Aug, [facility] [address] [id number] [address] [place] [address], [place] [address] Aug, [facility] [address] [id number] [address] [place] [address], [place] [address] Aug, [facility] [address] [id number] [address] [place] [address], [place] [address] Aug, [facility] [address] [id number] [address] [place] [address], [place] [address] Aug, [facility] [address] [id number] [address] [place] [address], [place] [address] Aug, [facility] [address] [id number] [address] [place] [address], [place] [address] Aug, [facility] [address] [id number] [address] [place] [address], [place] [address] Aug, [facility] [address] [id number] [address] [place] [address], [place] [address] Aug, [facility] [address] [id number] [address] [place] [address], [place] [address] Aug, [facility] [address] [id number] [address] [place] [address], [place] [address] Aug, [facility] [address] [id number] [address] [place] [address], [place] [address] Aug, [facility] [address] [id number] [address] [place] [address], [place] [address] Aug, [facility] [address] [id number] [address] [place] [address], [place] [address] Aug, [facility] [address] [id number] [address] [place] [address], [place] [address] Aug, [facility] [address] [id number] [address] [place] [address], [place] [address] Aug, [facility] [address] [id number] [address] [place] [address], [place] [address] Aug, [facility] [address] [id number] [address] [place] [address], [place] [address] Aug, [facility] [address] [id number] [address] [place] [address], [place] [address] Aug, [facility] [address] [id number] [address] [place] [address], [place] [address] Jul, [facility] [address] [id number] [address] [place] [address], [place] [address] Jul, [facility] [address] [id number] [address] [place] [address], [place] [address] Jul, [facility] [address] [id number] [address] [place] [address], [place] [address] Jul, [facility] [address] [id number] [address] [place] [address], [place] [address] Jul, [facility] [address] [id number] [address] [place] [address], [place] [address] Jul, [facility] [address] [id number] [address] [place] [address], [place] [address] Jul, [facility] [address] [id number] [address] [place] [address], [place] [address] Jul, [facility] [address] [id number] [address] [place] [address], [place] [address] Jul, [facility] [address] [id number] [address] [place] [address], [place] [address] Jul, [facility] [address] [id number] [address] [place] [address], [place] [address] Jun, [facility] [address] [id number] [address] [place] [address], [place] [address] Jun, [facility] [address] [id number] [address] [place] [address], [place] [address] Jun, [facility] [address] [id number] [address] [place] [address], [place] [address] Jun, [facility] [address] [id number] [address] [place] [address], [place] [address] Jun, [facility] [address] [id number] [address] [place] [address], [place] [address] Jun, [facility] [address] [id number] [address] [place] [address], [place] [address] Jun, [facility] [address] [id number] [address] [place] [address], [place] [address] Jun, [facility] [address] [id number] [address] [place] [address], [place] [address] Jun, [facility] [address] [id number] [address] [place] [address], [place] [address] Jun, [facility] [address] [id number] [address] [place] [address], [place] [address] 29 May, 2014 [facility] [address] [id number] [address] [place] [address], [place] [address] 29 May, 2013 [facility] [address] [id number] [address] [place] [address], [place] [address] 26 May, 2014 [facility] [address] [id number] [address] [place] [address], [place] [address] 26 May, 2013 [facility] [address] [id number] [address] [place] [address], [place] [address] 17 May, 2013 [facility] [address] [id number] [address] [place] [address], [place] [address] 17 May, 2013 [facility] [address] [id number] [facility] [place] [address] 15 May, 2013 [facility] [address] [id number] [address] [place] [address], [place] [address] 15 May, 2013 [facility] [address] [id number] [address] [place] [address], [place] [address] 15 May, 2013 [facility] [address] [id number] [address] [place] [address], [place] [address] 15 May, 2013 [facility] [address] [id number] [address] [place] [address], [place] [address] 10 May, 2013 [facility] [address] [id number] [address] [place] [address], [place] [address] 10 May, 2013 [facility] [address] [id number] [address] [place] [address], [place] [address] 09 May, 2013 [facility] [address] [id number] [address] [place] [address], [place] [address] 09 May, 2013 [facility] [address] [id number] [address] [place] [address], [place] [address] 04 May, 2013 [facility] [address] [id number] [address] [place] [address], [place] [address] 04 May, 2013 [facility] [address] [id number] [address] [place] [address], [place] [address] Apr, [facility] [address] [id number] [address] [place] [address], [place] [address] Apr, [facility] [address] [id number] [address] [place] [address], [place] [address] Apr, [facility] [address] [id number] [address] [place] [address], [place] [address] Apr, [facility] [address] [id number] [address] [place] [address], [place] [address] Apr, [facility] [address] [id number] [facility] [place] [address] Apr, [facility] [address] [id number] [facility] [place] [address] Apr, [facility] [address] [id number] [facility] [place] [address] Apr, [facility] [address] [id number] [address] [place] [address], [place] [address] Apr, [facility] [address] [id number] [address] [place] [address], [place] [address] Apr, [facility] [address] [id number] [address] [place] [address], [place] [address] Apr, [facility] [address] [id number] [address] [place] [address], [place] [address] Apr, [facility] [address] [id number] [address] [place] [address], [place] [address] Apr, [facility] [address] [id number] [address] [place] [address], [place] [address] Apr, [facility] [address] [id number] [address] [place] [address], [place] [address] Apr, [facility] [address] [id number] [address] [place] [address], [place] [address] Mar, [facility] [address] [id number] [address] [place] [address], [place] [address] Mar, [facility] [address] [id number] [address] [place] [address], [place] [address] Mar, [facility] [address] [id number] [address] [place] [address], [place] [address] Mar, [facility] [address] [id number] [address] [place] [address], [place] [address] Mar, [facility] [address] [id number] [address] [place] [address], [place] [address] Mar, [facility] [address] [id number] [address] [place] [address], [place] [address] Mar, 2013 [facility] [address] [id number] [address] [place] [address], [place] [address] Mar, 2013 [facility] [address] [id number] [address] [place] [address], [place] [address] Mar, 2013 [facility] [address] [id number] [address] [place] [address], [place] [address] Mar, 2013 [facility] [address] [id number] [address] [place] [address], [place] [address] Mar, 2013 [facility] [address] [id number] [address] [place] [address], [place] [address] Mar, 2013 [facility] [address] [id number] [address] [place] [address], [place] [address] Mar, 2013 [facility] [address] [id number] [address] [place] [address], [place] [address] Mar, 2013 [facility] [address] [id number] [address] [place] [address], [place] [address] Mar, 2013 [facility] [address] [id number] [address] [place] [address], [place] [address] Mar, 2013 [facility] [address] [id number] [address] [place] [address], [place] [address] Mar, 2013 [facility] [address] [id number] [address] [place] [address], [place] [address] Mar, [facility] [address] [id number] [address] [place] [address], [place] [address] Feb, [facility] [address] [id number] [address] [place] [address], [place] [address] Feb, [facility] [address] [id number] [address] [place] [address], [place] [address] Feb, [facility] [address] [id number] [address] [place] [id number] 16 Feb, 2014 [facility] [address] [id number] [facility] [place] [address] Feb, [facility] [address] [id number] [facility] [place] [address] Feb, [facility] [address] [id number] [facility] [place] [address] Feb, [facility] [address] [id number] [address] [place] [address], [place] [address] Feb, [facility] [address] [id number] [address] [place] [address], [place] [address] Feb, [facility] [address] [id number] [address] [place] [address], [place] [address] Feb, [facility] [address] [id number] [address] [place] [address], [place] [address] Feb, [facility] [address] [id number] [address] [place] [address], [place] [address] Feb, [facility] [address] [id number] [address] [place] [address], [place] [address] Feb, [facility] [address] [id number] [address] [place] [address], [place] [address] Feb, [facility] [address] [id number] [address] [place] [address], [place] [address] January, [facility] [address] [id number] [address] [place] [address], [place] [address] January, [facility] [address] [id number] [address] [place] [address], [place] [address] January, [facility] [address] [id number] [address] [place] [address], [place] [address] January, [facility] [address] [id number] [address] [place] [address], [place] [address] January, [facility] [address] [id number] [facility] [place] [address] January, [facility] [address] [id number] [facility] [place] [address] January, [facility] [address] [id number] [facility] [place] [address] January, [facility] [address] [id number] [address] [place] [address], [place] [address] January, [facility] [address] [id number] [address] [place] [address], [place] [address] January, [facility] [address] [id number] [address] [place] [address], [place] [address] January, [facility] [address] [id number] [address] [place] [address], [place] [address] January, [facility] [address] [id number] [address] [place] [address], [place] [address] January, [facility] [address] [id number] [address] [place] [address], [place] [address] January, [facility] [address] [id number] [address] [place] [address], [place] [address] Dec, [facility] [address] [id number] [address] [place] [address], [place] [address] Dec, [facility] [address] [id number] [address] [place] [address], [place] [id number] Dec, [facility] [address] [id number] [address] [place] [address], [place] [address] Dec, [facility] [address] [id number] [address] [place] [address], [place] [address] Dec, [facility] [address] [id number] [address] [place] [address], [place] [address] Dec, [facility] [address] [id number] [address] [place] [address], [place] [address] Dec, [facility] [address] [id number] [facility] [place] [address] Dec, [facility] [address] [id number] [address] [place] [address], [place] [address] Dec, [facility] [address] [id number] [address] [place] [address], [place] [address] Dec, [facility] [address] [id number] [address] [place] [address], [place] [address] Nov, [facility] [address] [id number] [address] [place] [address], [place] [address] Nov, [facility] [address] [id number] [address] [place] [address], [place] [address] Nov, [facility] [address] [id number] [address] [place] [address], [place] [address] Nov, [facility] [address] [id number] [address] [place] [address], [place] [address] Nov, [facility] [address] [id number] [address] [place] [address], [place] [address] Nov, [facility] [address] [id number] [address] [place] [address], [place] [address] Nov, [facility] [address] [id number] [address] [place] [address], [place] [address] Nov, [facility] [address] [id number] [address] [place] [address], [place] [address] Nov, [facility] [address] [id number] [address] [place] [address], [place] [address] Nov, [facility] [address] [id number] [address] [place] [address], [place] [address] Oct, [facility] [address] [id number] [address] [place] [address], [place] [address] Oct, [facility] [address] [id number] [address] [place] [address], [place] [id number] Oct, [facility] [address] [id number] [address] [place] [address], [place] [address] Oct, [facility] [address] [id number] [address] [place] [address], [place] [address] Oct, [facility] [address] [id number] [address] [place] [address], [place] [id number] Oct, [facility] [address] [id number] [address] [place] [address], [place] [id number] Oct, [facility] [address] [id number] [address] [place] [address], [place] [id number] Oct, [facility] [address] [id number] [address] [place] [address], [place] [id number] Oct, [facility] [address] [id number] [address] [place] [address], [place] [address] Oct, [facility] [address] [id number] [address] [place] [address], [place] [address] Oct, [facility] [address] [id number] [address] [place] [address], [place] [id number] Oct, [facility] [address] [id number] [address] [place] [address], [place] [address] Oct, [facility] [address] [id number] [address] [place] [address], [place] [address] Oct, [facility] [address] [id number] [address] [place] [address], [place] [id number] Sep, [facility] [address] [id number] [address] [place] [address], [place] [id number] Sep, [facility] [address] [id number] [address] [place] [address], [place] [address] Sep, [facility] [address] [id number] [address] [place] [id number] 15 Sep, 2013 [facility] [address] [id number] [address] [place] [address], [place] [id number] 14 Sep, 2013 [facility] [address] [id number] [address] [place] [address], [place] [id number] 14 Sep, 2013 [facility] [address] [id number] [address] [place] [address], [place] [address] Sep, [facility] [address] [id number] [address] [place] [address], [place] [id number] Sep, [facility] [address] [id number] [address] [place] [address], [place] [address] Sep, [facility] [address] [id number] [address] [place] [address], [place] [address] Sep, [facility] [address] [id number] [address] [place] [address], [place] [address] Aug, [facility] [address] [id number] [address] [place] [address], [place] [address] Aug, [facility] [address] [id number] [address] [place] [address], [place] [address] Jul, [facility] [address] [id number] [address] [place] [address], [place] [address] Jul, [facility] [address] [id number] [address] [place] [address], [place] [address] Jul, [facility] [address] [id number] [address] [place] [address], [place] [address] Jul, [facility] [address] [id number] [address] [place] [address], [place] [address] Jul, [facility] [address] [id number] [address] [place] [address], [place] [address] Jul, [facility] [address] [id number] [address] [place] [address], [place] [address] Jul, [facility] [address] [id number] [address] [place] [address], [place] [id number] 12 Jul, 2013 [facility] [address] [id number] [address] [place] [address], [place] [address] Jul, [facility] [address] [id number] [address] [place] [address], [place] [id number] 08 Jul, 2013 [facility] [address] [id number] [address] [place] [address], [place] [id number] Jul, 2012 [facility] [address] [id number] [address] [place] [address], [place] [address] Jul, 2012 [facility] [address] [id number] [address] [place] [address], [place] [address] Jul, [facility] [address] [id number] [address] [place] [address], [place] [address] Jul, [facility] [address] [id number] [address] [place] [address], [place] [address] Jul, [facility] [address] [id number] [address] [place] [address], [place] [id number] Jul, [facility] [address] [id number] [address] [place] [address], [place] [id number] Jul, [facility] [address] [id number] [address] [place] [address], [place] [address] Jul, [facility] [address] [id number] [address] [place] [address], [place] [id number] Jul, [facility] [address] [id number] [address] [place] [address], [place] [address] Jun, [facility] [address] [id number] [address] [place] [address], [place] [address] Jun, [facility] [address] [id number] [address] [place] [address], [place] [address] Jun, [facility] [address] [id number] [address] [place] [address], [place] [id number] Jun, [facility] [address] [id number] [address] [place] [address], [place] [id number] 16 Jun, 2013 [facility] [address] [id number] [address] [place] [address], [place] [id number] 16 Jun, 2013 [facility] [address] [id number] [address] [place] [address], [place] [id number] 10 Jun, 2013 [facility] [address] [id number] [address] [place] [address], [place] [id number] 10 Jun, 2013 [facility] [address] [id number] [address] [place] [address], [place] [id number] Jun, [facility] [address] [id number] [address] [place] [address], [place] [id number] 09 Jun, 2013 [facility] [address] [id number] [address] [place] [address], [place] [id number] Jun, [facility] [facility] [address] [id number] [address] [place] [id number] 26 Sep, 2012 [facility] [address] [id number] [address] [place] [address], [place] [address] 25 Sep, 2012 [facility] [address] [id number] [address] [place] [address] 19 Sep, 2012 [facility] [address] [id number] [address] [place] [address], [place] [address] 17 Sep, 2012 [facility] [address] [id number] [address] [place] [id number] 11 Sep, 2012 [facility] [address] [id number] [address] [place] [address], [place] [address] 10 Sep, 2012 [facility] [address] [id number] [address] [place] [id number] 09 Sep, 2012 [facility] [address] [id number] [address] [place] [address], [place] [address] 05 Sep, 2012 [facility] [address] [id number] [address] [place] [address], [place] [address] Apr, [facility] [address] [id number] [address] [place] [address], [place] [address] Apr, [facility] [address] [id number] [address] [place] [address], [place] [address] Apr, [facility] [address] [id number] [address] [place] [address], [place] [address] Apr, [facility] [address] [id number] [address] [place] [address], [place] [address] Apr, [facility] [address] [id number] [address] [place] [address], [place] [address] Mar, [facility] [address] [id number] [address] [place] [address], [place] [address] Mar, [facility] [address] [id number] [address] [place] [address], [place] [address] Mar, [facility] [address] [id number] [address] [place] [address], [place] [address] Mar, [facility] [address] [id number] [address] [place] [address], [place] [address] Mar, [facility] [address] [id number] [address] [place] [address], [place] [address] Mar, [facility] [address] [id number] [address] [place] [address], [place] [address] Mar, [facility] [address] [id number] [address] [place] [address], [place] [address] Mar, [facility] [address] [id number] [address] [place] [address], [place] [address] Feb, [facility] [address] [id number] [address] [place] [address], [place] [address] Feb, [facility] [address] [id number] [address] [place] [address], [place] [address] January, [facility] [address] [id number] [address] [place] [address], [place] [address] January, [facility] [address] [id number] [address] [place] [address], [place] [address] Dec, [facility] [address] [id number] [address] [place] [address], [place] [address] Dec, [facility] [address] [id number] [address] [place] [address], [place] [address] Nov, [facility] [address] [id number] [address] [place] [address], [place] [address] Nov, [facility] [address] [id number] [address] [place] [address], [place] [address] Nov, [facility] [address] [id number] [address] [place] [address], [place] [address] Nov, [facility] [address] [id number] [address] [place] [address], [place] [address] Oct, [facility] [address] [id number] [address] [place] [address], [place] [address] Oct, [facility] [address] [id number] [address] [place] [address], [place] [address] Oct, [facility] [address] [id number] [address] [place] [address], [place] [address] Oct, [facility] [address] [id number] [address] [place] [address], [place] [address] 16 Oct, 2012 [facility] [address] [id number] [address] [place] [address], [place] [address] 14 Oct, 2012 [facility] [address] [id number] [address] [place] [address], [place] [address] 08 Oct, 2012 [facility] [address] [id number] [address] [place] [address], [place] [address] 07 Oct, 2012 [facility] [address] [id number] [address] [place] [address], [place] [address] 03 Oct, 2012 [facility] [address] [id number] [address] [place] [address], [place] [address] 30 Sep, 2012 [facility] [address] [id number] [address] [place] [address], [place] [address] Sep, [facility] [address] [id number] [address] [place] [address], [place] [address] Sep, [facility] [address] [id number] [address] [place] [address], [place] [address] Sep, [facility] [address] [id number] [address] [place] [address], [place] [address] Sep, [facility] [address] [id number] [address] [place] [address], [place] [address] Sep, [facility] [address] [id number] [address] [place] [address], [place] [address] Sep, [facility] [address] [id number] [address] [place] [address], [place] [address] Sep, [facility] [address] [id number] [address] [place] [address], [place] [address] 31 Aug, 2012 [facility] [address] [id number] [address] [place] [address], [place] [address] 31 Aug, 2012 [facility] [address] [id number] [address] [place] [address], [place] [address] Aug, [facility] [address] [id number] [address] [place] [address], [place] [address] Aug, [facility] [address] [id number] [address] [place] [address], [place] [address] Aug, [facility] [address] [id number] [address] [place] [address], [place] [address] Aug, [facility] [address] [id number] [address] [place] [address], [place] [address] 18 Aug, 2012 [facility] [address] [id number] [address] [place] [address], [place] [address] Aug, [facility] [address] [id number] [address] [place] [address], [place] [address] Jul, [facility] [address] [id number] [address] [place] [address], [place] [address] Jul, [facility] [address] [id number] [address] [place] [address], [place] [address] Jul, [facility] [address] [id number] [address] [place] [address], [place] [address] Jul, [facility] [address] [id number] [address] [place] [address], [place] [address] Jul, [facility] [address] [id number] [address] [place] [address], [place] [address] Jul, [facility] [address] [id number] [address] [place] [address], [place] [address] Jun, [facility] [address] [id number] [address] [place] [address], [place] [address] Jun, [facility] [address] [id number] [address] [place] [address], [place] [address] Jun, [facility] [address] [id number] [address] [place] [address], [place] [address] Jun, [facility] [address] [id number] [address] [place] [address], [place] [address] Jun, [facility] [address] [id number] [address] [place] [address], [place] [address] Jun, [facility] [address] [id number] [address] [place] [address], [place] [address] Jun, [facility] [address] [id number] [address] [place] [address], [place] [address] Jun, [facility] [address] [id number] [address] [place] [address], [place] [address] Jun, [facility] [address] [id number] [address] [place] [address], [place] [address] 26 May, 2012 [facility] [address] [id number] [address] [place] [address], [place] [address] 24 May, 2012 [facility] [address] [id number] [address] [place] [address], [place] [address] May, [facility] [address] [id number] [address] [place] [address], [place] [address] Apr, [facility] [address] [id number] [address] [place] [address], [place] [address] Apr, [facility] [address] [id number] [address] [place] [address], [place] [address] Apr, [facility] [address] [id number] [address] [place] [address], [place] [address] Apr, [facility] [address] [id number] [address] [place] [address], [place] [address] Apr, [facility] [address] [id number] [address] [place] [address], [place] [address] Apr, [facility] [address] [id number] [address] [place] [address], [place] [address] Mar, [facility] [address] [id number] [address] [place] [address], [place] [address] Mar, [facility] [address] [id number] [address] [place] [address], [place] [address] Mar, [facility] [address] [id number] [address] [place] [address], [place] [address] Mar, [facility] [address] [id number] [address] [place] [address], [place] [address] Feb, [facility] [address] [id number] [address] [place] [address], [place] [address] Feb, [facility] [address] [id number] [address] [place] [address], [place] [address] Feb, [facility] [address] [id number] [address] [place] [address], [place] [address] Feb, [facility] [address] [id number] [address] [place] [address], [place] [address] Feb, [facility] [address] [id number] [address] [place] [address], [place] [address] January, [facility] [address] [id number] [address] [place] [address], [place] [address] January, [facility] [address] [id number] [address] [place] [address], [place] [address] January, [facility] [address] [id number] [address] [place] [address], [place] [address] January, [facility] [address] [id number] [address] [place] [address], [place] [address] January, [facility] [address] [id number] [address] [place] [address], [place] [address] January, [facility] [address] [id number] [address] [place] [address], [place] [address] Dec, [facility] [address] [id number] [address] [place] [address], [place] [address] Dec, [facility] [address] [id number] [address] [place] [address], [place] [address] Dec, [facility] [address] [id number] [address] [place] [address], [place] [address] Dec, [facility] [address] [id number] [address] [place] [address], [place] [address] Dec, [facility] [address] [id number] [address] [place] [address], [place] [address] Nov, [facility] [address] [id number] [address] [place] [address], [place] [address] 14 Nov, 2011 [facility] [address] [id number] [address] [place] [address], [place] [address] 12 Nov, 2011 [facility] [address] [id number] [address] [place] [address], [place] [address] 07 Nov, 2011 [facility] [address] [id number] [address] [place] [address], [place] [address] 29 Oct, 2011 [facility] [address] [id number] [address] [place] [address], [place] [address] 28 Oct, 2011 [facility] [address] [id number] [address] [place] [address], [place] [address] 24 Oct, 2011 [facility] [address] [id number] [address] [place] [address], [place] [address] 13 Oct, 2011 [facility] [address] [id number] [address] [place] [address], [place] [address] 08 Oct, 2011 [facility] [address] [id number] [address] [place] [address], [place] [address] Sep, [facility] [address] [id number] [address] [place] [address], [place] [address] Sep, [facility] [address] [id number] [address] [place] [address], [place] [address] Sep, [facility] [address] [id number] [address] [place] [address], [place] [address] Sep, [facility] [address] [id number] [address] [place] [address], [place] [address] Sep, [facility] [address] [id number] [address] [place] [address], [place] [address] Sep, [facility] [address] [id number] [address] [place] [address], [place] [address] Aug, [facility] [address] [id number] [address] [place] [address], [place] [address] Aug, [facility] [address] [id number] [address] [place] [address], [place] [address] Aug, [facility] [address] [id number] [address] [place] [address], [place] [address] Jul, [facility] [address] [id number] [address] [place] [address], [place] [address] Jul, [facility] [address] [id number] [address] [place] [address], [place] [address] Jul, [facility] [address] [id number] [address] [place] [address], [place] [address] Jul, [facility] [address] [id number] [address] [place] [address], [place] [address] Jun, [facility] [address] [id number] [address] [place] [address], [place] [address] Jun, [facility] [address] [id number] [address] [place] [address], [place] [address] Jun, [facility] [address] [id number] [address] [place] [address], [place] [address] Jun, [facility] [address] [id number] [address] [place] [address], [place] [address] Jun, [facility] [address] [id number] [address] [place] [address], [place] [address] Jun, [facility] [address] [id number] [address] [place] [address], [place] [address] Mar, [facility] [address] [id number] [address] [place] [address], [place] [address] Dec, [facility] [address] [id number] [address] [place] [address], [place] [address] Dec, [facility] [address] [id number] [address] [place] [address], [place] [address] Nov, [facility] [address] [id number] [address] [place] [address], [place] [address] 16 Nov, 2010 [facility] [address] [id number] [address] [place] [address], [place] [address] 10 Sep, 2010 [facility] [address] [id number] [address] [place] [address], [place] [address] Aug, [facility] [address] [id number] [address] [place] [address], [place] [address] Aug, [facility] [address] [id number] [address] [place] [address], [place] [address] Aug, [facility] [address] [id number] [address] [place] [address], [place] [address] Aug, [facility] [address] [id number] [address] [place] [address], [place] [address] Aug, [facility] [address] [id number] [address] [place] [address], [place] [address] Aug, [facility] [address] [id number] [address] [place] [address], [place] [address] Aug, [facility] [address] [id number] [address] [place] [address], [place] [address] Aug, [facility] [address] [id number] [address] [place] [address], [place] [address] Aug, [facility] [address] [id number] [address] [place] [address], [place] [address] Aug, [facility] [address] [id number] [address] [place] [address], [place] [address] Aug, [facility] [address] [id number] [address] [place] [address], [place] [address] Aug, [facility] [address] [id number] [address] [place] [address], [place] [address] Jul, [facility] [address] [id number] [address] [place] [address], [place] [address] Jul, [facility] [address] [id number] [address] [place] [address], [place] [address] 30 Jul, 2010 [facility] [address] [id number] [address] [place] [address], [place] [address] 17 Jul, 2010 [facility] [address] [id number] [address] [place] [address], [place] [address] 08 Jul, 2010 [facility] [address] [id number] [address] [place] [address], [place] [address] Jul, [facility] [address] [id number] [address] [place] [address], [place] [id number] 24 Jun, 2010 [facility] [address] [id number] [address] [place] [address], [place] [address] Jun, [facility] [address] [id number] [address] [place] [address], [place] [address] Jun, [facility] [address] [id number] [address] [place] [address], [place] [address] Jun, [facility] [address] [id number] [address] [place] [address], [place] [address] 16 Apr, 2010 [facility] [address] [id number] [address] [place] [address], [place] [address] Mar, [facility] [address] [id number] [address] [place] [address], [place] [address] Feb, [facility] [address] [id number] [address] [place] [id number] January, [facility] [address] [id number] [address] [place] [phone] 15 Dec, 2009 [facility] [address] [id number] [address] [place] [address], [place] [id number] Nov, [facility] [address] [id number] [address] [place] [address], [place] [id number] 31 Aug, 2009 [facility] [address] [id number] [address] [place] [address], [place] [id number] Aug, [facility] [address] [id number] [address] [place] [phone] Aug, [facility] [address] [id number] [address] [place] [phone] Jul, [facility] [address] [id number] [address] [place] [phone] Jul, [facility] [address] [id number] [address] [place] [id number] Jul, [facility] [address] [id number] [address] [place] [phone] Jun, [facility] [address] [id number] [address] [place] [phone] Jun, [facility] [address] [id number] [address] [place] [id number] Jun, [facility] [address] [id number] [address] [place] [phone] Jun, [facility] [address] [id number] [address] [place] [phone] Jun, [facility] [address] [id number] [address] [place] [phone] Jun, [facility] [address] [id number] [address] [place] [id number] Apr, [facility] [address] [id number] [address] [place] [phone] Apr, [facility] [address] [id number] [address] [place] [phone] Feb, [facility] [address] [id number] [address] [place] [phone] January, [facility] [address] [id number] [address] [place] [id number] Dec, IMMUNIZATIONS No Known Immunizations SOCIAL HISTORY Never Assessed REASON FOR VISIT EMR-[facility] PLAN OF CARE VITAL SIGNS MEDICATIONS Unknown [...] Medical History skin cancer-basal cell R taoism (removed ) Medical History Arthritis Medical History [...] EGD ([place]) 2009 Surgical History colonoscopy 2009 ([facility]), 2013 ([place] ) Surgical History heart cath: CAD w/ [...] History inability to urinate 09/16/15 Hospitalization History [facility] health ea rly 1999's Hospitalization History hyperkalemia 10/2017 Hospitalization History fluid in lung
--- OUTSIDE RECORDS SUMMARY | 2020-03-01 17:32 | XMS REPORT ---
Author Author Michele Verduzco Doctor Organization [facility] Address Unknown Phone Unavailable Care Team Providers Care Cotton Dispatcher Name Role Phone Migration, Doctor Unavailable Unavailable PROBLEMS Type Condition ICD9-CM Code OIR41-SF Code Onset Dates Condition S tatus SNOMED Code Problem Cough R05 Active 41846636 Problem Benign prostatic hyperplasia with lower urinary tract symptoms, unspecified morphology N40.1 Active 64859 6007 Problem Eustachian tube dysfunction, unspecified laterality H69.80 Active 50223371 Problem Chronic pain G89.29 Active 8716745 1 Problem DM neuro manif type II E11.49 Active 95285544 Problem Diabetes E11.9 Active 77660440 Problem Leukocytosis D72.829 Active 7411890 06 Problem Falling R29.6 Active 956272757 Problem Pressure ulcer of other site, stage 3 L89.893 Active 822922270 Problem 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 Active 396970462 Problem Eye exam abnormal R93.8 Active 16 3228637 Problem Dysuria R30.0 Active 16359773 Problem Hypokalemia E87.6 Active 27017834 Problem Morbid obesity E66.01 Active 58285 6002 Problem Anxiety F41.9 Active 97424653 Problem Diabetic polyneuropathy associated with type 2 d iabetes mellitus E11.42 Active 14141266 Problem Essential hypertension I10 Active 70319160 Problem Bilateral primary osteoarthritis of knee M17.0 Active 234581233 Problem Polyneuropathy associated with underlying disease G63 Active 851795294 Problem Anemia of chronic illness D63.8 Acti ve 833010664 Problem Lymphocytosis D72.820 Active 384609 09 Problem Retinal edema H35.81 Active 921452 6 Problem Chronic lymphocytic leukemia C91.10 A ctive 52691301 Problem Bipolar disorder, in partial remission, most rec ent episode depressed F31.75 Active 63673516 Problem Pure hypercholesterolemia E78.00 Acti ve 184189023 Problem Primary osteoarthritis of right knee M17.11 Active 003545688155723 Problem Bipolar disorder F31.9 Active 137 78505 Problem Bipolar I disorder, most recent episode (or curr ent) mixed, moderate F31.62 Active 97627354 Problem Chronic diastolic (congestive) heart failure I50.3 2 Active 197277465 Problem Reactive airway disease J45.909 Active 404018563437 Problem Insomnia, unspecified type G47.00 Act sharon 273781339 Problem Other chronic pain G89.29 Active 8 8761830 Problem Other iron deficiency anemia D50.8 A ctive 84919696 Problem Mild cognitive impairment G31.84 Acti ve 487767025 Problem Skin cancer C44.90 Active 34206890 7 ALLERGIES No Information ENCOUNTERS Encounter Location Date Diagnosis [facility] [address] [id number] [address] [place] [address] Mar, [facility] [address] [id number] [address] [place] [address] Feb, [facility] [address] [facility] [id number] [address] [place] [address] Feb, [facility] [address] [id number] [address] [place] [address] January, [facility] [address] [id number] [address] [place] [address] January, [facility] [address] [facility] [id number] [address] [place] [address] January, Bipolar disorder, in partial remission, most recent episode depressed F31.75 and Mild cognitive impairment G31.84 [facility] [address] [id number] [address] [place] [address] January, Chronic pain G89.29 and Bipo lar disorder F31.9 [facility] [address] [facility] [id number] [address] [place] [address] January, Bipolar disorder, in partial remission, most recent episode depressed F31.75 and Mild cognitive impairment G31.84 [facility] [address] [id number] [address] [place] [address] Dec, [facility] [address] [facility] [id number] [address] [place] [address] 17 Dec, 2018 Chronic pain G89.29 and Bipo lar disorder F31.9 [place] [address] [place] [id number] [address] [place] [address] 17 Dec, 2018 Edema of both lower extremit ies R60.0 [place] [address] [place] [id number] [address] [place] [address] 15 Dec, 2018 Bipolar disorder F31.9 [place] [address] [place] [id number] [address] [place] [address] 08 Dec, 2018 Bipolar disorder, in partial remission, most recent episode depressed F31.75 and Mild cognitive impairment G31.84 [place] [address] [place] [id number] [address] [place] [address] Nov, [place] [address] [address] Nov, Chronic pain G89.29 [place] [address] [place] [address] Nov, Bipolar disorder, in partial remission, most recent episode depressed F31.75 and Mild cognitive impairment G31.84 [place] [address] [place] [id number] [address] [place] [address] 18 Nov, 2018 Bipolar disorder F31.9 [place] [id number] [place] [address] 04 Nov, 2018 Encounter for Medicare ann [...] unspecified morphology N40.1 and Essential hypertension I10 [place] [address] [place] [id number] [address] [place] [address] Oct, Chronic pain G89.29 [place] [address] [facility] [id number] [address] [place] [address] 18 Oct, 2018 Diabetes E11.9 [place] [address] [facility] [id number] [address] [place] [address] Oct, Bipolar I disorder, most rec ent episode (or current) mixed, moderate F31.62 and Mild cognitive impairment G31.84 [place] [address] [facility] [id number] [address] [place] [address] Oct, Bipolar I disorder, most rec ent episode (or current) mixed, moderate F31.62 and Mild cognitive impairment G31.84 [place] [address] [place] [id number] [address] [place] [address] Sep, Bipolar I disorder, most rec ent episode (or current) mixed, moderate F31.62 and Mild cognitive impairment G31.84 [place] [address] [place] [id number] [address] [place] [address] Sep, [place] [id number] [place] [address] Sep, Diabetes E11.9 ; Hypoxia R09 .02 ; Hyperglycemia R73.9 ; Therapeutic drug monitoring Z51.81 ; BMI 50.0-59.9, adult Z68.43 and Skin cancer C44.90 [place] [address] [facility] [id number] [address] [place] [address] Sep, Chronic pain G89.29 [place] [address] [facility] [id number] [address] [place] [address] Sep, Bipolar I disorder, most rec ent episode (or current) mixed, moderate F31.62 [place] [address] [facility] [id number] [address] [place] [address] Sep, [place] [address] [place] [id number] [address] [place] [address] Sep, [facility] [address] [id number] [address] [place] [address] Aug, Chronic pain G89.29 [facility] [address] [id number] [address] [place], [place] [address] Aug, Bipolar I disorder, most rec ent episode (or current) mixed, moderate F31.62 [facility] [address] [id number] [address] [place] [address] Aug, Bipolar I disorder, most rec ent episode (or current) mixed, moderate F31.62 and Mild cognitive impairment G31.84 [facility] [address] [id number] [address] [place] [address] Jul, [facility] [address] [facility] [id number] [address] [place] [address] Jul, Chronic pain G89.29 [facility] [address] [id number] [address] [place] [address] Jul, Bipolar I disorder, most rec ent episode (or current) mixed, moderate F31.62 and Mild cognitive impairment G31.84 [facility] [address] [facility] [id number] [address] [place] [address] Jul, Bipolar I disorder, most rec ent episode (or current) mixed, moderate F31.62 and MCI (mild cognitive impairment) G31.84 [facility] [address] [id number] [address] [place] [address] Jul, [facility] [address] [id number] [address] [place] [address] Jul, [facility] [address] [facility] [id number] [address] [place] [address] Jul, Bipolar I disorder, most rec ent episode (or current) mixed, moderate F31.62 [facility] [address] [facility] [id number] [address] [place] [address] Jul, Chronic pain G89.29 [facility] [address] [id number] [address] [place] [address] Jun, Bipolar I disorder, most rec ent episode (or current) mixed, moderate F31.62 [facility] [address] [id number] [address] [place] [address] Jun, Pre-procedure lab exam Z01.8 12 [facility] [address] [id number] [place] [id number] Jun, [facility] [address] [id number] [address] [place] [address] Jun, [facility] [address] [id number] [address] [place] [address] Jun, [facility] [address] [id number] [address] [place] [address] Jun, Forgetfulness R68.89 ; Pre-s yncope R55 ; Localized edema R60.0 ; Other iron deficiency anemia D50.8 and BMI 50.0-59.9, adult Z68.43 [facility] [address] [id number] [address] [place] [address] Jun, Chronic pain G89.29 [facility] [address] [id number] [address] [place] [address] Jun, Chronic pain G89.29 [facility] [address] [facility] [id number] [address] [place] [address] Jun, Bipolar I disorder, most rec ent episode (or current) mixed, moderate F31.62 [facility] [address] [id number] [address] [place] [address] May, Chronic pain G89.29 [facility] [address] [id number] [address] [place] [address] Apr, [facility] [address] [id number] [address] [place] [address] 10 Aug, 2018 Chronic pain G89.29 [facility] [address] [place] [id number] [address] [place] [address] Apr, Primary osteoarthritis of ri ght knee M17.11 [facility] [address] [facility] [id number] [address] [place] [address] Mar, [facility] [address] [place] [id number] [address] [place] [address] Mar, BMI 50.0-59.9, adult Z68.43 and Bipolar disorder, in partial remission, most recent episode depressed F31.75 [place] [address] [place] [id number] [address] [place] [address] Mar, Diabetes E11.9 ; Pure hyperc holesterolemia E78.00 ; Essential hypertension I10 ; Nausea with vomiting, unspecified R11.2 and Headache, unspecified headache type R51 [place] [address] [place] [id number] [address] [place] [address] Mar, Bipolar I disorder, most rec ent episode (or current) mixed, moderate F31.62 [place] [address] [place] [id number] [address] [place] [address] Mar, Bipolar I disorder, most rec ent episode (or current) mixed, moderate F31.62 [place] [address] [place] [id number] [address] [place] [address] Mar, Chronic pain G89.29 [place] [address] [place] [id number] [address] [place] [address] Mar, Bipolar I disorder, most rec ent episode (or current) mixed, moderate F31.62 [place] [address] [place] [id number] [address] [place] [address] Feb, Bipolar I disorder, most rec ent episode (or current) mixed, moderate F31.62 [place] [address] [place] [id number] [address] [place] [address] Feb, Chronic pain G89.29 [place] [address] [place] [id number] [address] [place] [address] Feb, Decubitus ulcer of right josselin t, stage 3 L89.893 and BMI 50.0-59.9, adult Z68.43 [facility] [address] [facility] [id number] [address] [place] [address] Feb, Bipolar I disorder, most rec ent episode (or current) mixed, moderate F31.62 [facility] [address] [facility] [id number] [address] [place] [address] Feb, [facility] [address] [facility] [id number] [address] [place] [address] January, [place] [address] [facility] [id number] [address] [place] [address] January, Chronic pain G89.29 [facility] [address] [facility] [id number] [address] [place] [address] January, Bipolar I disorder, most rec ent episode (or current) mixed, moderate F31.62 [facility] [address] [facility] [id number] [address] [place] [address] January, Bipolar I disorder, most rec ent episode (or current) mixed, moderate F31.62 [place] [address] [facility] [id number] [address] [place] [address] Dec, Bipolar I disorder, most rec ent episode (or current) mixed, moderate F31.62 and BMI 50.0-59.9, adult Z68.43 [facility] [address] [facility] [id number] [address] [place] [address] Dec, Bipolar I disorder, most rec ent episode (or current) mixed, moderate F31.62 [facility] [address] [facility] [id number] [address] [place] [address] Dec, Chronic pain G89.29 [facility] [address] [facility] [id number] [address] [place] [address] 18 Apr, 2018 DM neuro manif type II E11.4 9 ; Right flank pain R10.9 ; FDC 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 Z79.891 ; Encounter for medication monitoring Z51.81 and BMI 50.0-59.9, adult Z68.43 [facility] [address] [place] [id number] [address] [place] [address] 04 Dec, 2017 Bipolar I disorder, most rec ent episode (or current) mixed, moderate F31.62 [place] [address] [place] [id number] [address] [place] [address] Nov, Bipolar I disorder, most rec ent episode (or current) mixed, moderate F31.62 [place] [address] [place] [id number] [address] [place] [address] Nov, Chronic pain G89.29 [place] [address] [place] [id number] [address] [place] [address] Nov, Bipolar I disorder, most rec ent episode (or current) mixed, moderate F31.62 [place] [address] [place] [id number] [address] [place] [address] Nov, Hypokalemia E87.6 [place] [address] [place] [id number] [address] [place] [address] Nov, Bipolar I disorder, most rec ent episode (or current) mixed, moderate F31.62 [place] [address] [place] [id number] [address] [place] [address] Oct, Chronic pain G89.29 [place] [address] [place] [id number] [address] [place] [address] Oct, BMI 50.0-59.9, adult Z68.43 and Bipolar I disorder, most recent episode (or current) mixed, moderate F31.62 [place] [address] [place] [id number] [address] [place] [address] Oct, Bipolar I disorder, most rec ent episode (or current) mixed, moderate F31.62 [place] [address] [place] [id number] [place] [address] Oct, [facility] [address] [facility] [id number] [address] [place] [address] Oct, Hypokalemia E87.6 [facility] [address] [place] [id number] [address] [place] [address] Oct, DM neuro manif type II E11.4 9 [facility] [address] [place] [id number] [address] [place] [address] Oct, Bipolar I disorder, most rec ent episode (or current) mixed, moderate F31.62 [place] [address] [place] [id number] [place] [address] 20 Oct, 2017 Bipolar I disorder, most rec ent episode (or current) mixed, moderate F31.62 [place] [address] [address] 14 Oct, 2017 Hyperkalemia E87.5 ; Falling R29.6 ; BMI 50.0-59.9, adult Z68.43 and Acute left ankle pain M25.572 [place] [address] [address] Oct, DM neuro manif type II E11.4 9 [facility] [address] [place] [id number] [address] [place] [address] Oct, [facility] [address] [address] Sep, Chronic pain G89.29 [facility] [address] [place] [id number] [address] [place] [address] Sep, [place] [address] [address] Sep, Bilateral primary osteoarthr itis of knee M17.0 [facility] [address] [place] [id number] [address] [place] [address] Sep, Generalized edema R60.1 [facility] [address] [facility] [id number] [address] [place] [address] 16 Sep, 2017 Bipolar I disorder, most rec ent episode (or current) mixed, moderate F31.62 [facility] [address] 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 [id number] [address] [place] [address] 03 Sep, 2017 [place] [address] [place] [id number] [address] [place] [address] Sep, Bipolar I disorder, most rec ent episode (or current) mixed, moderate F31.62 [place] [address] [facility] [id number] [address] [place] [address] Aug, Chronic pain G89.29 [place] [address] [facility] [id number] [address] [place] [phone] Aug, Generalized edema R60.1 [facility] [address] [facility] [id number] [address] [place] [address] 18 Aug, 2017 [facility] [address] [facility] [id number] [address] [place] [address] Aug, [facility] [address] [facility] [id number] [address] [place] [address] 14 Aug, 2017 Bipolar I disorder, most rec ent episode (or current) mixed, moderate F31.62 [facility] [address] [facility] [id number] [address] [place] [address] 07 Aug, 2017 Bipolar I disorder, most rec ent episode (or current) mixed, moderate F31.62 [place] [address] [place] [id number] [address] [place] [address] Aug, Chronic pain G89.29 [facility] [address] [facility] [id number] [address] [place] [address] Jul, Bipolar I disorder, most rec ent episode (or current) mixed, moderate F31.62 [facility] [address] [place] [id number] [address] [place] [address] Jul, Bipolar I disorder, most rec ent episode (or current) mixed, moderate F31.62 and BMI 60.0-69.9, adult Z68.44 [place] [address] [facility] [id number] [address] [place] [address] Jul, Bipolar I disorder, most rec ent episode (or current) mixed, moderate F31.62 [place] [address] [place] [id number] [address] [place] [address] Jul, Chronic pain G89.29 [place] [address] [place] [id number] [address] [place] [address] Jul, Bipolar I disorder, most rec ent episode (or current) mixed, moderate F31.62 [place] [address] [place] [id number] [address] [place] [address] Jun, Polyneuropathy associated wi th underlying disease G63 and Diabetes E11.9 [place] [address] [facility] [id number] [address] [place] [address] Jun, Bipolar I disorder, most rec ent episode (or current) mixed, moderate F31.62 [place] [address] [place] [id number] [address] [place] [address] Jun, Chronic pain G89.29 [place] [address] [place] [id number] [address] [place] [address] May, Bipolar I disorder, most rec ent episode (or current) mixed, moderate F31.62 [place] [address] [place] [id number] [address] [place] [address] May, Bipolar I disorder, most rec ent episode (or current) mixed, moderate F31.62 [facility] [address] [id number] [address] [place] [address] 20 May, 2017 Diabetic polyneuropathy asso ciated with type 2 diabetes mellitus E11.42 [facility] [address] [id number] [address] [place] [address] 18 May, 2017 Bipolar I disorder, most rec ent episode (or current) mixed, moderate F31.62 [facility] [address] [id number] [address] [place] [phone] 13 May, 2017 Bipolar I disorder, most rec ent episode (or current) mixed, moderate F31.62 [facility] [address] [id number] [address] [place] [id number] 12 May, 2017 Chronic pain G89.29 [facility] [address] [id number] [address] [place] [id number] Apr, Bipolar I disorder, most rec ent episode (or current) mixed, moderate F31.62 [facility] [address] [id number] [address] [place] [phone] Apr, [facility] [address] [id number] [address] [place] [id number] Apr, Chronic pain G89.29 and DM n euro manif type II E11.49 [facility] [address] [id number] [address] [place] [id number] Apr, [facility] [address] [id number] [address] [place] [id number] Apr, Bipolar I disorder, most rec ent episode (or current) mixed, moderate F31.62 [facility] [address] [id number] [address] [place] [id number] Apr, Chronic pain G89.29 [facility] [address] [id number] [address] [place] [id number] Apr, Iliotibial band syndrome, le ft M76.32 [facility] [address] [facility] [id number] [address] [place] [id number] Apr, Bipolar I disorder, most rec ent episode (or current) mixed, moderate F31.62 [facility] [address] [facility] [id number] [address] [place] [id number] Mar, Bipolar I disorder, most rec ent episode (or current) mixed, moderate F31.62 [facility] [address] [facility] [id number] [address] [place] [address] Mar, Bipolar I disorder, most rec ent episode (or current) mixed, moderate F31.62 [facility] [address] [facility] [id number] [address] [place] [address] Mar, [facility] [address] [place] [id number] [address] [place] [address] Mar, Bipolar I disorder, most rec ent episode (or current) mixed, moderate F31.62 [facility] [address] [facility] [id number] [address] [place] [address] Mar, Chronic pain G89.29 [facility] [address] [facility] [id number] [address] [place] [address] Mar, Bipolar I disorder, most rec ent episode (or current) mixed, moderate F31.62 [facility] [address] [facility] [id number] [address] [place] [address] Mar, Bipolar I disorder, most rec ent episode (or current) mixed, moderate F31.62 [facility] [address] [facility] [id number] [address] [place] [address] Mar, Acute pain of left knee M25. 562 ; Left hip pain M25.552 ; Generalized edema R60.1 and Tongue swelling R22.0 [facility] [address] [facility] [id number] [address] [place] [address] Mar, [facility] [address] [place] [id number] [address] [place] [address] Feb, Chronic pain G89.29 [facility] [address] [id number] [address] [place] [address] Feb, Diabetes E11.9 [facility] [address] [id number] [address] [place] [address] January, Chronic pain G89.29 [facility] [address] [id number] [address] [place] [address] January, [facility] [address] [id number] [address] [place] [address] January, Bipolar I disorder, most rec ent episode (or current) mixed, moderate F31.62 [facility] [address] [id number] [address] [place] [address] Dec, Bipolar I disorder, most rec ent episode (or current) mixed, moderate F31.62 [place] [id number] [facility] [id number] [address] [place] [address] Dec, Chronic pain G89.29 [facility] [address] [id number] [address] [place] [address] Dec, Bipolar I disorder, most rec ent episode (or current) mixed, moderate F31.62 [facility] [address] [facility] [id number] [address] [place] [address] Dec, Diabetes E11.9 ; Essential h ypertension I10 ; Chronic pain G89.29 and Morbid obesity E66.01 [facility] [address] [id number] [address] [place] [address] Dec, [facility] [address] [facility] [id number] [address] [place] [address] Dec, Bipolar I disorder, most rec ent episode (or current) mixed, moderate F31.62 [facility] [address] [facility] [id number] [address] [place] [address] Dec, Bipolar I disorder, most rec ent episode (or current) mixed, moderate F31.62 [facility] [address] [id number] [address] [place] [address] Nov, Chronic pain G89.29 [facility] [address] [id number] [address] [place] [address] Nov, Bipolar I disorder, most rec ent episode (or current) mixed, moderate F31.62 [facility] [address] [id number] [address] [place] [address] Nov, [facility] [address] [id number] [address] [place] [address] Nov, Bipolar I disorder, most rec ent episode (or current) mixed, moderate F31.62 [facility] [address] [facility] [id number] [address] [place] [address] Nov, Bipolar I disorder, most rec ent episode (or current) mixed, moderate F31.62 [facility] [address] [facility] [id number] [address] [place] [address] Nov, [facility] [address] [facility] [id number] [address] [place] [address] Nov, [facility] [address] [facility] [id number] [address] [place] [address] Nov, [facility] [address] [facility] [id number] [address] [place] [address] Oct, Chronic pain G89.29 [facility] [address] [facility] [id number] [address] [place] [address] Oct, Bipolar I disorder, most rec ent episode (or current) mixed, moderate F31.62 [facility] [address] [id number] [address] [place] [address] Oct, [facility] [address] 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 [id number] [address] [place] [address] Oct, Diabetes E11.9 [facility] [address] [id number] [address] [place] [address] Oct, Bipolar I disorder, most rec ent episode (or current) mixed, moderate F31.62 [facility] [address] [id number] [address] [place] [address] Sep, Chronic pain G89.29 [facility] [address] [facility] [id number] [address] [place] [address] Sep, Chronic pain G89.29 [facility] [address] [facility] [id number] [address] [place] [address] Aug, Chronic pain G89.29 [facility] [address] [id number] [address] [place] [address] Jul, [facility] [address] [facility] [id number] [address] [place] [address] Jul, Diabetes E11.9 [facility] [address] [facility] [id number] [address] [place] [address] Jul, Chronic pain G89.29 [facility] [address] [facility] [id number] [address] [place] [address] Jul, Bipolar I disorder, most rec ent episode (or current) mixed, moderate F31.62 [facility] [address] [facility] [id number] [address] [place] [address] Jun, Bipolar I disorder, most rec ent episode (or current) mixed, moderate F31.62 [facility] [address] [facility] [id number] [address] [place] [address] Jun, [facility] [address] [facility] [id number] [address] [place] [address] Jun, Bipolar I disorder, most rec ent episode (or current) mixed, moderate F31.62 [facility] [address] [facility] [id number] [address] [place] [address] 30 May, 2016 Insomnia, unspecified type G 47.00 [place] [address] [facility] [id number] [address] [place] [address] May, Bipolar I disorder, most rec ent episode (or current) mixed, moderate F31.62 [place] [address] [facility] [id number] [address] [place] [address] 14 May, 2016 [place] [address] [place] [id number] [address] [place] [address] May, Bipolar I disorder, most rec ent episode (or current) mixed, moderate F31.62 [place] [address] [place] [id number] [address] [place] [address] May, Diabetes E11.9 and Essential hypertension I10 [place] [address] [facility] [id number] [address] [place] [address] Apr, Chronic pain G89.29 [place] [address] [place] [id number] [address] [place] [address] Apr, Bipolar I disorder, most rec ent episode (or current) mixed, moderate F31.62 [place] [address] [place] [id number] [address] [place] [address] Apr, [place] [address] [place] [id number] [address] [place] [address] Apr, [place] [address] [place] [id number] [address] [place] [address] Mar, Chronic pain G89.29 ; Headac he, unspecified headache type R51 ; Neuropathy G62.9 ; Pain of right hip joint M25.551 and Essential hypertension I10 [place] [address] [id number] [address] [place] [address] Mar, Chronic pain G89.29 [facility] [address] [id number] [address] [place] [address] Mar, Bipolar I disorder, most rec ent episode (or current) mixed, moderate F31.62 [facility] [address] [facility] [id number] [address] [place] [address] Feb, Bipolar I disorder, most rec ent episode (or current) mixed, moderate F31.62 and Insomnia, unspecified type G47.00 [facility] [address] [id number] [address] [place] [address] Feb, Chronic pain G89.29 [facility] [address] [facility] [id number] [address] [place] [address] Feb, Bipolar I disorder, most rec ent episode (or current) mixed, moderate F31.62 [facility] [address] [facility] [id number] [address] [place] [address] January, Bipolar I disorder, most rec ent episode (or current) mixed, moderate F31.62 [facility] [address] [facility] [id number] [address] [place] [address] January, Chronic pain G89.29 [facility] [address] [facility] [id number] [address] [place] [address] January, Chronic pain G89.29 and Esse ntial hypertension I10 [facility] [address] [id number] [address] [place] [address] January, Bipolar I disorder, most rec ent episode (or current) mixed, moderate F31.62 [facility] [address] [facility] [id number] [address] [place] [address] Dec, [facility] [address] [facility] [id number] [address] [place] [address] Dec, [facility] [address] [facility] [id number] [address] [place] [address] Dec, [facility] [address] [facility] [id number] [address] [place] [address] Dec, [facility] [address] [facility] [id number] [address] [place] [address] Nov, Reactive airway disease J45. 909 [facility] [address] [place] [id number] [address] [place] [address] Nov, [facility] [address] [place] [id number] [place] [address] Nov, [facility] [address] [facility] [id number] [address] [place] [phone] Nov, [facility] [address] [place] [id number] [place] [address] Nov, [facility] [address] [address] Nov, Onychomycosis B35.1 ; Hammer toe M20.40 ; [place] or callus L84 and DM neuro manif type II E11.49 [facility] [address] [address] Nov, Chronic pain G89.29 ; Leukoc ytosis D72.829 and Diabetes E11.9 [facility] [address] [place] [id number] [address] [place] [address] Nov, [facility] [address] [place] [id number] [address] [place] [address] Oct, Bronchitis J40 [facility] [address] [facility] [id number] [address] [place] [address] Oct, [facility] [address] [place] [id number] [address] [place] [address] Oct, [facility] [address] [place] [id number] [address] [place] [address] Oct, Mastoiditis, unspecified lat erality H70.90 and Type 2 diabetes mellitus with complication E11.8 [facility] [address] [facility] [id number] [address] [place] [address] Sep, [facility] [address] [place] [id number] [address] [place] [address] Sep, Dysuria R30.0 ; Cough R05 ; Benign prostatic hyperplasia with lower urinary tract symptoms, unspecified morphology N40.1 ; Hypokalemia E87.6 and Eustachian tube dysfunction, unspecified laterality H69.80 [facility] [address] [place] [id number] [address] [place] [address] Sep, Moderate mixed bipolar I dis order F31.62 [facility] [address] [place] [id number] [address] [place] [address] Sep, Hypokalemia E87.6 [place] [address] [place] [id number] [address] [place] [address] Sep, [facility] [address] [place] [id number] [address] [place] [address] Sep, Upper respiratory tract infe ction, unspecified type J06.9 [facility] [address] [place] [id number] [address] [place] [address] Aug, [facility] [address] [place] [id number] [address] [place] [address] Aug, Dysuria R30.0 [facility] [address] [place] [id number] [address] [place] [address] Aug, [facility] [address] [place] [id number] [address] [place] [address] Jul, [facility] [address] [place] [id number] [address] [place] [address] Jul, [facility] [address] [place] [id number] [address] [place] [address] Jul, [facility] [address] [place] [id number] [address] [place] [address] Jul, [facility] [address] [facility] [id number] [address] [place] [address] Jun, [facility] [address] [place] [id number] [address] [place] [address] Jun, [facility] [address] [place] [id number] [address] [place] [address] Jun, [facility] [address] [place] [id number] [address] [place] [address] May, [facility] [address] [place] [id number] [address] [place] [address] May, Bipolar I disorder, most rec ent episode (or current) mixed, moderate 296.62 [facility] [address] [place] [id number] [place] [address] May, [facility] [address] [place] [id number] [address] [place] [address] May, Bipolar I disorder, most rec ent episode (or current) mixed, moderate 296.62 and Major depressive disorder, recurrent episode, severe, specified as with psychotic behavior 296.34 [facility] [address] [place] [id number] [address] [place] [address] May, Bipolar I disorder, most rec ent episode (or current) mixed, moderate 296.62 [facility] [address] [place] [id number] [address] [place] [address] May, [facility] [address] [place] [id number] [address] [place] [address] Apr, [facility] [address] [place] [id number] [address] [place] [address] Apr, [facility] [address] [place] [id number] [address] [place] [address] Apr, Unspecified disorder of kidn ey and ureter 593.9 and Diabetes mellitus type 2, uncontrolled 250.02 [facility] [address] [facility] [id number] [address] [place] [address] Apr, [facility] [address] [facility] [id number] [address] [place] [address] Apr, [facility] [address] [facility] [id number] [address] [place] [address] Apr, [facility] [address] [place] [id number] [address] [place] [address] Apr, [facility] [address] [facility] [id number] [address] [place] [address] Apr, Diabetes mellitus type II, u ncontrolled 250.02 [facility] [address] [facility] [id number] [address] [place] [address] Apr, [facility] [address] [id number] Mar, [facility] [address] [place] [id number] [address] [place] [address] Mar, [facility] [address] [facility] [id number] [address] [place] [address] Mar, [facility] [address] [place] [id number] [address] [place] [address] Mar, Major depressive disorder, r ecurrent episode, severe, specified as with psychotic behavior 296.34 and Bipolar I disorder, most recent episode (or current) mixed, moderate 296.62 [facility] [address] [place] [id number] [address] [place] [address] Mar, Diabetes 250.00 ; Anuria 788 .5 ; Nausea and vomiting 787.01 and Diarrhea 787.91 [facility] [address] [place] [id number] [address] [place] [address] Mar, Diabetes 250.00 [facility] [address] [place] [id number] [address] [place] [address] Mar, [facility] [address] [place] [id number] [address] [place] [address] Mar, Diabetes 250.00 [facility] [address] [address] Mar, [facility] [address] [address] Mar, [facility] [address] [address] Mar, [facility] [address] [address] Mar, [place] [address] [address] Mar, Bipolar I disorder, most rec ent episode (or current) mixed, moderate 296.62 and Major depressive disorder, recurrent episode, severe, specified as with psychotic behavior 296.[address] [address] Mar, Magnesium deficiency 275.2 ; Hypokalemia 276.8 ; Nausea & vomiting 787.01 and Diabetes mellitus type 2, uncontrolled 250.[address] [address] Feb, [address] [address] Feb, Bipolar I disorder, most rec ent episode (or current) mixed, moderate 296.62 [place] [address] [id number] Feb, Nausea and vomiting 787.01 ; Left elbow pain 719.42 ; Anuria 788.5 and Diabetes 250.00 [facility] [address] [place] [id number] [address] [place] [address] Feb, [facility] [address] [address] Feb, Hypopotassemia 276.8 and Hyp okalemia 276.8 [facility] [address] [id number] [address] [place] [address] Feb, Hypopotassemia 276.8 and Hyp okalemia 276.8 [facility] [address] [id number] [address] [place] [address] Feb, Seborrheic keratoses 702.19 [facility] [address] [facility] [id number] [address] [place] [address] Feb, Hypopotassemia 276.8 and Low magnesium levels 275.2 [facility] [address] [id number] [address] [place] [address] January, [facility] [address] [facility] [id number] [address] [place] [address] January, [facility] [address] [facility] [id number] [address] [place] [id number] January, [facility] [address] [facility] [id number] [address] [place] [id number] January, Scalp lesion 709.9 [facility] [address] [facility] [id number] [address] [place] [phone] January, [facility] [address] [facility] [id number] [address] [place] [phone] Dec, Tear of medial cartilage or meniscus of knee, current 836.0 and 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 [facility] [address] [facility] [id number] [address] [place] [phone] Dec, [facility] [address] [id number] [address] [place] [phone] Dec, [facility] [address] 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 [id number] [address] [place] [id number] 14 Dec, 2014 [facility] [address] [id number] [address] [place] [address], [place] [id number] 13 Dec, 2014 [facility] [address] [id number] [address] [place] [address], [place] [address] Nov, [facility] [address] [id number] [address] [place] [address], [place] [id number] Nov, [facility] [address] [id number] [address] [place] [address], [place] [id number] Nov, [facility] [address] [id number] [address] [place] [address], [place] [id number] Nov, [facility] [address] [id number] [address] [place] [address], [place] [id number] Nov, [facility] [address] [id number] [address] [place] [address], [place] [id number] Nov, [facility] [address] [id number] [address] [place] [address], [place] [id number] Nov, [facility] [address] [id number] [address] [place] [address], [place] [address] Nov, [facility] [address] [id number] [address] [place] [address], [place] [address] Nov, [facility] [address] [id number] [address] [place] [address], [place] [address] Nov, [facility] [address] [id number] [address] [place] [address], [place] [address] Nov, [facility] [address] [id number] [address] [place] [address], [place] [address] Nov, [facility] [address] [id number] [address] [place] [address], [place] [address] Oct, [facility] [address] [id number] [address] [place] [address], [place] [address] Oct, [facility] [address] [id number] [address] [place] [address], [place] [address] Oct, 2014 [facility] [address] [id number] [address] [place] [address], [place] [address] Oct, 2014 [facility] [address] [id number] [address] [place] [address], [place] [address] Oct, 2014 [facility] [address] [id number] [address] [place] [address], [place] [address] Oct, 2014 [facility] [address] [id number] [address] [place] [address], [place] [address] Oct, 2014 [facility] [address] [id number] [address] [place] [address], [place] [address] Oct, 2014 [facility] [address] [id number] [address] [place] [address], [place] [address] Oct, [facility] [address] [id number] [address] [place] [address], [place] [address] Sep, [facility] [address] [id number] [address] [place] [address], [place] [address] Sep, [facility] [address] [id number] [address] [place] [address], [place] [address] Sep, [facility] [address] [id number] [address] [place] [address], [place] [address] Sep, [facility] [address] [id number] [address] [place] [address], [place] [address] Sep, [facility] [address] [id number] [address] [place] [address] Sep, [facility] [address] [id number] [address] [place] [address], [place] [address] Sep, [facility] [address] [id number] [address] [place] [address], [place] [address] Sep, [facility] [address] [id number] [address] [place] [address] Sep, [facility] [address] [id number] [address] [place] [address], [place] [address] 14 Sep, 2014 [facility] [address] [id number] [address] [place] [address], [place] [address] Sep, [facility] [address] [id number] [address] [place] [address], [place] [address] Sep, [facility] [address] [id number] [address] [place] [address], [place] [address] Sep, [facility] [address] [id number] [address] [place] [address], [place] [address] Sep, [facility] [address] [id number] [address] [place] [address], [place] [address] Sep, [facility] [address] [id number] [address] [place] [address], [place] [address] Sep, [facility] [address] [id number] [address] [place] [address], [place] [address] Aug, [facility] [address] [id number] [address] [place] [address], [place] [address] Aug, [facility] [address] [id number] [address] [place] [address], [place] [address] Aug, [facility] [address] [id number] [address] [place] [address], [place] [address] 31 Aug, 2014 [facility] [address] [id number] [address] [place] [address], [place] [address] 31 Aug, 2014 [facility] [address] [id number] [address] [place] [address], [place] [address] 31 Aug, 2014 [facility] [address] [id number] [address] [place] [address], [place] [address] 17 Aug, 2014 [facility] [address] [id number] [address] [place] [address], [place] [address] 17 Aug, 2014 [facility] [address] [id number] [address] [place] [address], [place] [address] Aug, [facility] [address] [id number] [facility] [place] [address] Aug, [facility] [address] [id number] [address] [place] [address], [place] [address] Aug, [facility] [place] [id number] Aug, [facility] [address] [id number] [address] [place] [address], [place] [address] Aug, [facility] [address] [id number] [address] [place] [address], [place] [address] Aug, [facility] [address] [id number] [address] [place] [address], [place] [address] Aug, [facility] [address] [id number] [address] [place] [address], [place] [address] Aug, [facility] [address] [id number] [address] [place] [address], [place] [address] Aug, [facility] [address] [id number] [address] [place] [address], [place] [address] Aug, [facility] [address] [id number] [address] [place] [address], [place] [address] Aug, [facility] [address] [id number] [address] [place] [address], [place] [address] Aug, [facility] [address] [id number] [address] [place] [address], [place] [address] Aug, [facility] [address] [id number] [address] [place] [address], [place] [address] Aug, [facility] [address] [id number] [address] [place] [address], [place] [address] Aug, [facility] [address] [id number] [address] [place] [address], [place] [address] Aug, [facility] [address] [id number] [address] [place] [address], [place] [address] Aug, [facility] [address] [id number] [address] [place] [address], [place] [address] Aug, [facility] [address] [id number] [address] [place] [address], [place] [address] Aug, [facility] [address] [id number] [address] [place] [address], [place] [address] Aug, [facility] [address] [id number] [address] [place] [address], [place] [address] Aug, [facility] [address] [id number] [address] [place] [address], [place] [address] Aug, [facility] [address] [id number] [address] [place] [address], [place] [address] Jul, [facility] [address] [id number] [address] [place] [address], [place] [address] Jul, [facility] [address] [id number] [address] [place] [address], [place] [address] Jul, [facility] [address] [id number] [address] [place] [address], [place] [address] Jul, [facility] [address] [id number] [address] [place] [address], [place] [address] Jul, [facility] [address] [id number] [address] [place] [address], [place] [address] Jul, [facility] [address] [id number] [address] [place] [address], [place] [address] Jul, [facility] [address] [id number] [address] [place] [address], [place] [address] Jul, [facility] [address] [id number] [address] [place] [address], [place] [address] Jul, [facility] [address] [id number] [address] [place] [address], [place] [address] Jul, [facility] [address] [id number] [address] [place] [address], [place] [address] Jun, [facility] [address] [id number] [address] [place] [address], [place] [address] Jun, [facility] [address] [id number] [address] [place] [address], [place] [address] Jun, [facility] [address] [id number] [address] [place] [address], [place] [address] Jun, [facility] [address] [id number] [address] [place] [address], [place] [address] Jun, [facility] [address] [id number] [address] [place] [address], [place] [address] Jun, [facility] [address] [id number] [address] [place] [address], [place] [address] Jun, [facility] [address] [id number] [address] [place] [address], [place] [address] Jun, [facility] [address] [id number] [address] [place] [address], [place] [address] Jun, [facility] [address] [id number] [address] [place] [address], [place] [address] Jun, [facility] [address] [id number] [address] [place] [address], [place] [address] 29 May, 2014 [facility] [address] [id number] [address] [place] [address], [place] [address] 29 May, 2013 [facility] [address] [id number] [address] [place] [address], [place] [address] 26 May, 2014 [facility] [address] [id number] [address] [place] [address], [place] [address] 26 May, 2013 [facility] [address] [id number] [address] [place] [address], [place] [address] 17 May, 2013 [facility] [address] [id number] [address] [place] [address], [place] [address] 17 May, 2013 [facility] [address] [id number] [facility] [place] [address] 15 May, 2013 [facility] [address] [id number] [address] [place] [address], [place] [address] 15 May, 2013 [facility] [address] [id number] [address] [place] [address], [place] [address] 15 May, 2013 [facility] [address] [id number] [address] [place] [address], [place] [address] 15 May, 2013 [facility] [address] [id number] [address] [place] [address], [place] [address] 10 May, 2013 [facility] [address] [id number] [address] [place] [address], [place] [address] 10 May, 2013 [facility] [address] [id number] [address] [place] [address], [place] [address] 09 May, 2013 [facility] [address] [id number] [address] [place] [address], [place] [address] 09 May, 2013 [facility] [address] [id number] [address] [place] [address], [place] [address] 04 May, 2013 [facility] [address] [id number] [address] [place] [address], [place] [address] 04 May, 2013 [facility] [address] [id number] [address] [place] [address], [place] [address] Apr, [facility] [address] [id number] [address] [place] [address], [place] [address] Apr, [facility] [address] [id number] [address] [place] [address], [place] [address] Apr, [facility] [address] [id number] [address] [place] [address], [place] [address] Apr, [facility] [address] [id number] [address] [place] [address], [place] [address] Apr, [facility] [address] [id number] [facility] [place] [address] Apr, [facility] [address] [id number] [address] [place] [address] Apr, [facility] [address] [id number] [address] [place] [address] Apr, [facility] [address] [id number] [address] [place] [address], [place] [address] Apr, [facility] [address] [id number] [address] [place] [address], [place] [address] Apr, [facility] [address] [id number] [address] [place] [address], [place] [address] Apr, [facility] [address] [id number] [address] [place] [address], [place] [address] Apr, [facility] [address] [id number] [address] [place] [address], [place] [address] Apr, [facility] [address] [id number] [address] [place] [address], [place] [address] Apr, [facility] [address] [id number] [address] [place] [address], [place] [address] Apr, [facility] [address] [id number] [address] [place] [address], [place] [address] Mar, [facility] [address] [id number] [address] [place] [address], [place] [address] Mar, [facility] [address] [id number] [address] [place] [address], [place] [address] Mar, [facility] [address] [id number] [address] [place] [address], [place] [address] Mar, [facility] [address] [id number] [address] [place] [address], [place] [address] Mar, [facility] [address] [id number] [address] [place] [address], [place] [address] Mar, [facility] [address] [id number] [address] [place] [address], [place] [address] Mar, 2013 [facility] [address] [id number] [address] [place] [address], [place] [address] Mar, 2013 [facility] [address] [id number] [address] [place] [address], [place] [address] Mar, 2013 [facility] [address] [id number] [address] [place] [address], [place] [address] Mar, 2013 [facility] [address] [id number] [address] [place] [address], [place] [address] Mar, 2013 [facility] [address] [id number] [address] [place] [address], [place] [address] Mar, 2013 [facility] [address] [id number] [address] [place] [address], [place] [address] Mar, 2013 [facility] [address] [id number] [address] [place] [address], [place] [address] Mar, 2013 [facility] [address] [id number] [address] [place] [address], [place] [address] Mar, 2013 [facility] [address] [id number] [address] [place] [address], [place] [address] Mar, 2013 [facility] [address] [id number] [address] [place] [address], [place] [address] Mar, 2013 [facility] [address] [id number] [address] [place] [address], [place] [address] Mar, [facility] [address] [id number] [address] [place] [address], [place] [address] Feb, [facility] [address] [id number] [address] [place] [address], [place] [address] Feb, [facility] [address] [id number] [address] [place] [address], [place] [address] Feb, [facility] [address] [id number] [address] [place] [address] 16 Feb, 2014 [facility] [address] [id number] [address] [place] [address] Feb, [facility] [address] [id number] [address] [place] [address] Feb, [facility] [address] [id number] [address] [place] [address] Feb, [facility] [address] [id number] [address] [place] [address], [place] [address] Feb, [facility] [address] [id number] [address] [place] [address], [place] [address] Feb, [facility] [address] [id number] [address] [place] [address], [place] [address] Feb, [facility] [address] [id number] [address] [place] [address], [place] [address] Feb, [facility] [address] [id number] [address] [place] [address], [place] [address] Feb, [facility] [address] [id number] [address] [place] [address], [place] [address] Feb, [facility] [address] [id number] [address] [place] [address], [place] [address] Feb, [facility] [address] [id number] [address] [place] [address], [place] [address] January, [facility] [address] [id number] [address] [place] [address], [place] [address] January, [facility] [address] [id number] [address] [place] [address], [place] [address] January, [facility] [address] [id number] [address] [place] [address], [place] [address] January, [facility] [address] [id number] [address] [place] [address], [place] [address] January, [facility] [address] [id number] [address] [place] [address] January, [facility] [address] [id number] [address] [place] [address] January, [facility] [address] [id number] [address] [place] [address] January, [facility] [address] [id number] [address] [place] [address], [place] [address] January, [facility] [address] [id number] [address] [place] [address], [place] [address] January, [facility] [address] [id number] [address] [place] [address], [place] [address] January, [facility] [address] [id number] [address] [place] [address], [place] [address] January, [facility] [address] [id number] [address] [place] [address], [place] [address] January, [facility] [address] [id number] [address] [place] [address], [place] [address] January, [facility] [address] [id number] [address] [place] [address], [place] [address] Dec, [facility] [address] [id number] [address] [place] [address], [place] [address] Dec, [facility] [address] [id number] [address] [place] [address], [place] [address] Dec, [facility] [address] [id number] [address] [place] [address], [place] [address] Dec, [facility] [address] [id number] [address] [place] [address], [place] [address] Dec, [facility] [address] [id number] [address] [place] [address], [place] [address] Dec, [facility] [address] [id number] [address] [place] [address], [place] [address] Dec, [facility] [address] [id number] [facility] [place] [address] Dec, [facility] [address] [id number] [address] [place] [address], [place] [address] Dec, [facility] [address] [id number] [address] [place] [address], [place] [address] Dec, [facility] [address] [id number] [address] [place] [address], [place] [address] Nov, [facility] [address] [id number] [address] [place] [address], [place] [address] Nov, [facility] [address] [id number] [address] [place] [address], [place] [address] Nov, [facility] [address] [id number] [address] [place] [address], [place] [address] Nov, [facility] [address] [id number] [address] [place] [address], [place] [address] Nov, [facility] [address] [id number] [address] [place] [address], [place] [address] Nov, [facility] [address] [id number] [address] [place] [address], [place] [address] Nov, [facility] [address] [id number] [address] [place] [address], [place] [address] Nov, [facility] [address] [id number] [address] [place] [address], [place] [address] Nov, [facility] [address] [id number] [address] [place] [address], [place] [address] Nov, [facility] [address] [id number] [address] [place] [address], [place] [address] Oct, [facility] [address] [id number] [address] [place] [address], [place] [address] Oct, [facility] [address] [id number] [address] [place] [address], [place] [address] Oct, [facility] [address] [id number] [address] [place] [address], [place] [address] Oct, [facility] [address] [id number] [address] [place] [address], [place] [address] Oct, [facility] [address] [id number] [address] [place] [address], [place] [address] Oct, [facility] [address] [id number] [address] [place] [address], [place] [address] Oct, [facility] [address] [id number] [address] [place] [address], [place] [address] Oct, [facility] [address] [id number] [address] [place] [address], [place] [address] Oct, [facility] [address] [id number] [address] [place] [address], [place] [address] Oct, [facility] [address] [id number] [address] [place] [address], [place] [address] Oct, [facility] [address] [id number] [address] [place] [address], [place] [address] Oct, [facility] [address] [id number] [address] [place] [address], [place] [address] Oct, [facility] [address] [id number] [address] [place] [address], [place] [address] Oct, [facility] [address] [id number] [address] [place] [address], [place] [address] Sep, [facility] [address] [id number] [address] [place] [address], [place] [address] Sep, [facility] [address] [id number] [address] [place] [address], [place] [address] Sep, [facility] [address] [id number] [address] [place] [address] 15 Sep, 2013 [facility] [address] [id number] [address] [place] [address], [place] [address] 14 Sep, 2013 [facility] [address] [id number] [address] [place] [address], [place] [address] 14 Sep, 2013 [facility] [address] [id number] [address] [place] [address], [place] [address] Sep, [facility] [address] [id number] [address] [place] [address], [place] [address] Sep, [facility] [address] [id number] [address] [place] [address], [place] [address] Sep, [facility] [address] [id number] [address] [place] [address], [place] [address] Sep, [facility] [address] [id number] [address] [place] [address], [place] [address] Aug, [facility] [address] [id number] [address] [place] [address], [place] [address] Aug, [facility] [address] [id number] [address] [place] [address], [place] [address] Jul, [facility] [address] [id number] [address] [place] [place] [address], [place] [address] Jul, [facility] [address] [id number] [address] [place] [address], [place] [address] Jul, [facility] [address] [id number] [address] [place] [address], [place] [address] Jul, [facility] [address] [id number] [address] [place] [address], [place] [address] Jul, [facility] [address] [id number] [address] [place] [address], [place] [address] Jul, [facility] [address] [id number] [address] [place] [address], [place] [address] Jul, [facility] [address] [id number] [address] [place] [address], [place] [address] 12 Jul, 2013 [facility] [address] [id number] [address] [place] [address], [place] [address] Jul, [facility] [address] [id number] [address] [place] [address], [place] [address] 08 Jul, 2013 [facility] [address] [id number] [address] [place] [address], [place] [address] Jul, 2012 [facility] [address] [id number] [address] [place] [address], [place] [address] Jul, 2012 [facility] [address] [id number] [address] [place] [address], [place] [address] Jul, [facility] [address] [id number] [address] [place] [address], [place] [address] Jul, [facility] [address] [id number] [address] [place] [address], [place] [address] Jul, [facility] [address] [id number] [address] [place] [address], [place] [address] Jul, [facility] [address] [id number] [address] [place] [address], [place] [address] Jul, [facility] [address] [id number] [address] [place] [address], [place] [address] Jul, [facility] [address] [id number] [address] [place] [address], [place] [address] Jul, [facility] [address] [id number] [address] [place] [address], [place] [address] Jun, [facility] [address] [id number] [address] [place] [address], [place] [address] Jun, [facility] [address] [id number] [address] [place] [address], [place] [address] Jun, [facility] [address] [id number] [address] [place] [address], [place] [address] Jun, [facility] [address] [id number] [address] [place] [address], [place] [address] 16 Jun, 2013 [facility] [address] [id number] [address] [place] [address], [place] [address] 16 Jun, 2013 [facility] [address] [id number] [address] [place] [address], [place] [address] 10 Jun, 2013 [facility] [address] [id number] [address] [place] [address], [place] [address] 10 Jun, 2013 [facility] [address] [id number] [address] [place] [address], [place] [address] Jun, [facility] [address] [id number] [address] [place] [address], [place] [address] 09 Jun, 2013 [facility] [address] [id number] [address] [place] [address], [place] [address] Jun, [facility] [address] [id number] [address] [place] [address] 26 Sep, 2012 [facility] [address] [id number] [address] [place] [address], [place] [address] 25 Sep, 2012 [facility] [address] [id number] [address] [place] [address] 19 Sep, 2012 [facility] [address] [id number] [address] [place] [address], [place] [address] 17 Sep, 2012 [facility] [address] [id number] [address] [place] [address] 11 Sep, 2012 [facility] [address] [id number] [address] [place] [address], [place] [address] 10 Sep, 2012 [facility] [address] [id number] [address] [place] [address] 09 Sep, 2012 [facility] [address] [id number] [address] [place] [address], [place] [address] 05 Sep, 2012 [facility] [address] [id number] [address] [place] [address], [place] [address] Apr, [facility] [address] [id number] [address] [place] [address], [place] [address] Apr, [facility] [address] [id number] [address] [place] [address], [place] [address] Apr, [facility] [address] [id number] [address] [place] [address], [place] [address] Apr, [facility] [address] [id number] [address] [place] [address], [place] [address] Apr, [facility] [address] [id number] [address] [place] [address], [place] [address] Mar, [facility] [address] [id number] [address] [place] [address], [place] [address] Mar, [facility] [address] [id number] [address] [place] [address], [place] [address] Mar, [facility] [address] [id number] [address] [place] [address], [place] [address] Mar, [facility] [address] [id number] [address] [place] [address], [place] [address] Mar, [facility] [address] [id number] [address] [place] [address], [place] [address] Mar, [facility] [address] [id number] [address] [place] [address], [place] [address] Mar, [facility] [address] [id number] [address] [place] [address], [place] [address] Mar, [facility] [address] [id number] [address] [place] [address], [place] [address] Feb, [facility] [address] [id number] [address] [place] [address], [place] [address] Feb, [facility] [address] [id number] [address] [place] [address], [place] [address] January, [facility] [address] [id number] [address] [place] [address], [place] [address] January, [facility] [address] [id number] [address] [place] [address], [place] [address] Dec, [facility] [address] [id number] [address] [place] [address], [place] [address] Dec, [facility] [address] [id number] [address] [place] [address], [place] [address] Nov, [facility] [address] [id number] [address] [place] [address], [place] [address] Nov, [facility] [address] [id number] [address] [place] [address], [place] [address] Nov, [facility] [address] [id number] [address] [place] [address], [place] [address] Nov, [facility] [address] [id number] [address] [place] [address], [place] [address] Oct, [facility] [address] [id number] [address] [place] [address], [place] [address] Oct, [facility] [address] [id number] [address] [place] [address], [place] [address] Oct, [facility] [address] [id number] [address] [place] [address], [place] [address] Oct, [facility] [address] [id number] [address] [place] [address], [place] [address] 16 Oct, 2012 [facility] [address] [id number] [address] [place] [address], [place] [address] 14 Oct, 2012 [facility] [address] [id number] [address] [place] [address], [place] [address] 08 Oct, 2012 [facility] [address] [id number] [address] [place] [address], [place] [address] 07 Oct, 2012 [facility] [address] [id number] [address] [place] [address], [place] [address] 03 Oct, 2012 [facility] [address] [id number] [address] [place] [address], [place] [address] 30 Sep, 2012 [facility] [address] [id number] [address] [place] [address], [place] [address] Sep, [facility] [address] [id number] [address] [place] [address], [place] [address] Sep, [facility] [address] [id number] [address] [place] [address], [place] [address] Sep, [facility] [address] [id number] [address] [place] [address], [place] [address] Sep, [facility] [address] [id number] [address] [place] [address], [place] [address] Sep, [facility] [address] [id number] [address] [place] [address], [place] [address] Sep, [facility] [address] [id number] [address] [place] [address], [place] [address] Sep, [facility] [address] [id number] [address] [place] [address], [place] [address] [address], [address] [facility] [address] [id number] [address] [place] [address], [place] [address] 31 Aug, 2012 [facility] [address] [id number] [address] [place] [address], [place] [address] Aug, [facility] [address] [id number] [address] [place] [address], [place] [address] Aug, [facility] [address] [id number] [address] [place] [address], [place] [address] Aug, [facility] [address] [id number] [address] [place] [address], [place] [address] Aug, [facility] [address] [id number] [address] [place] [address], [place] [address] 18 Aug, 2012 [facility] [address] [id number] [address] [place] [address], [place] [address] Aug, [facility] [address] [id number] [address] [place] [address], [place] [address] Jul, [facility] [address] [id number] [address] [place] [address], [place] [address] Jul, [facility] [address] [id number] [address] [place] [address], [place] [address] Jul, [facility] [address] [id number] [address] [place] [address], [place] [address] Jul, [facility] [address] [id number] [address] [place] [address], [place] [address] Jul, [facility] [address] [id number] [address] [place] [address], [place] [address] Jul, [facility] [address] [id number] [address] [place] [address], [place] [address] Jun, [facility] [address] [id number] [address] [place] [address], [place] [address] Jun, [facility] [address] [id number] [address] [place] [address], [place] [address] Jun, [facility] [address] [id number] [address] [place] [address], [place] [address] Jun, [facility] [address] [id number] [address] [place] [address], [place] [address] Jun, [facility] [address] [id number] [address] [place] [address], [place] [address] Jun, [facility] [address] [id number] [address] [place] [address], [place] [address] Jun, [facility] [address] [id number] [address] [place] [address], [place] [address] Jun, [facility] [address] [id number] [address] [place] [address], [place] [address] Jun, [facility] [address] [id number] [address] [place] [address], [place] [address] 26 May, 2012 [facility] [address] [id number] [address] [place] [address], [place] [address] 24 May, 2012 [facility] [address] [id number] [address] [place] [address], [place] [address] May, [facility] [address] [id number] [address] [place] [address], [place] [address] Apr, [facility] [address] [id number] [address] [place] [address], [place] [address] Apr, [facility] [address] [id number] [address] [place] [address], [place] [address] Apr, [facility] [address] [id number] [address] [place] [address], [place] [address] Apr, [facility] [address] [id number] [address] [place] [address], [place] [address] Apr, [facility] [address] [id number] [address] [place] [address], [place] [address] Apr, [facility] [address] [id number] [address] [place] [address], [place] [address] Mar, [facility] [address] [id number] [address] [place] [address], [place] [address] Mar, [facility] [address] [id number] [address] [place] [address], [place] [address] Mar, [facility] [address] [id number] [address] [place] [address], [place] [address] Mar, [facility] [address] [id number] [address] [place] [address], [place] [address] Feb, [facility] [address] [id number] [address] [place] [address], [place] [address] Feb, [facility] [address] [id number] [address] [place] [address], [place] [address] Feb, [facility] [address] [id number] [address] [place] [address], [place] [address] Feb, [facility] [address] [id number] [address] [place] [address], [place] [address] Feb, [facility] [address] [id number] [address] [place] [address], [place] [address] January, [facility] [address] [id number] [address] [place] [address], [place] [address] January, [facility] [address] [id number] [address] [place] [address], [place] [address] January, [facility] [address] [id number] [address] [place] [address], [place] [address] January, [facility] [address] [id number] [address] [place] [address], [place] [address] January, [facility] [address] [id number] [address] [place] [address], [place] [address] January, [facility] [address] [id number] [address] [place] [address], [place] [address] Dec, [facility] [address] [id number] [address] [place] [address], [place] [address] Dec, [facility] [address] [id number] [address] [place] [address], [place] [address] Dec, [facility] [address] [id number] [address] [place] [address], [place] [address] Dec, [facility] [address] [id number] [address] [place] [address], [place] [address] Dec, [facility] [address] [id number] [address] [place] [address], [place] [address] Nov, [facility] [address] [id number] [address] [place] [address], [place] [address] 14 Nov, 2011 [facility] [address] [id number] [address] [place] [address], [place] [address] 12 Nov, 2011 [facility] [address] [id number] [address] [place] [address], [place] [address] 07 Nov, 2011 [facility] [address] [id number] [address] [place] [address], [place] [address] 29 Oct, 2011 [facility] [address] [id number] [address] [place] [address], [place] [address] 28 Oct, 2011 [facility] [address] [id number] [address] [place] [address], [place] [address] 24 Oct, 2011 [facility] [address] [id number] [address] [place] [address], [place] [address] 13 Oct, 2011 [facility] [address] [id number] [address] [place] [address], [place] [address] 08 Oct, 2011 [facility] [address] [id number] [address] [place] [address], [place] [address] Sep, [facility] [address] [id number] [address] [place] [address], [place] [address] Sep, [facility] [address] [id number] [address] [place] [address], [place] [address] Sep, [facility] [address] [id number] [address] [place] [address], [place] [address] Sep, [facility] [address] [id number] [address] [place] [address], [place] [address] Sep, [facility] [address] [id number] [address] [place] [address], [place] [address] Sep, [facility] [address] [id number] [address] [place] [address], [place] [address] Aug, [facility] [address] [id number] [address] [place] [address], [place] [address] Aug, [facility] [address] [id number] [address] [place] [address], [place] [address] Aug, [facility] [address] [id number] [address] [place] [address], [place] [address] Jul, [facility] [address] [id number] [address] [place] [address], [place] [address] Jul, [facility] [address] [id number] [address] [place] [address], [place] [address] Jul, [facility] [address] [id number] [address] [place] [address], [place] [address] Jul, [facility] [address] [id number] [address] [place] [address], [place] [address] Jun, [facility] [address] [id number] [address] [place] [address], [place] [address] Jun, [facility] [address] [id number] [address] [place] [address], [place] [address] Jun, [facility] [address] [id number] [address] [place] [address], [place] [address] Jun, [facility] [address] [id number] [address] [place] [address], [place] [address] Jun, [facility] [address] [id number] [address] [place] [address], [place] [address] Jun, [facility] [address] [id number] [address] [place] [address], [place] [address] Mar, [facility] [address] [id number] [address] [place] [address], [place] [address] Dec, [facility] [address] [id number] [address] [place] [address], [place] [address] Dec, [facility] [address] [id number] [address] [place] [address], [place] [address] Nov, [facility] [address] [id number] [address] [place] [address], [place] [address] 16 Nov, 2010 [facility] [address] [id number] [address] [place] [address], [place] [address] 10 Sep, 2010 [facility] [address] [id number] [address] [place] [address], [place] [address] Aug, [facility] [address] [id number] [address] [place] [address], [place] [address] Aug, [facility] [address] [id number] [address] [place] [address], [place] [address] Aug, [facility] [address] [id number] [address] [place] [address], [place] [address] Aug, [facility] [address] [id number] [address] [place] [address], [place] [address] Aug, [facility] [address] [id number] [address] [place] [address], [place] [address] Aug, [facility] [address] [id number] [address] [place] [address], [place] [address] Aug, [facility] [address] [id number] [address] [place] [address], [place] [address] Aug, [facility] [address] [id number] [address] [place] [address], [place] [address] Aug, [facility] [address] [id number] [address] [place] [address], [place] [address] Aug, [facility] [address] [id number] [address] [place] [address], [place] [address] Aug, [facility] [address] [id number] [address] [place] [address], [place] [address] Aug, [facility] [address] [id number] [address] [place] [address], [place] [address] Jul, [facility] [address] [id number] [address] [place] [address], [place] [address] Jul, [facility] [address] [id number] [address] [place] [address], [place] [address] 30 Jul, 2010 [facility] [address] [id number] [address] [place] [address], [place] [address] 17 Jul, 2010 [facility] [address] [id number] [address] [place] [address], [place] [address] 08 Jul, 2010 [facility] [address] [id number] [address] [place] [address], [place] [address] Jul, [facility] [address] [id number] [address] [place] [address], [place] [address] 24 Jun, 2010 [facility] [address] [id number] [address] [place] [address], [place] [address] Jun, [facility] [address] [id number] [address] [place] [address], [place] [address] Jun, [facility] [address] [id number] [address] [place] [address], [place] [address] Jun, [facility] [address] [id number] [address] [place] [address], [place] [address] 16 Apr, 2010 [facility] [address] [id number] [address] [place] [address], [place] [address] Mar, [facility] [address] [id number] [address] [place] [address], [place] [address] Feb, [facility] [address] [id number] [address] [place] [address] January, [facility] [address] [id number] [address] [place] [address] 15 Dec, 2009 [facility] [address] [id number] [address] [place] [address], [place] [address] Nov, [facility] [address] [id number] [address] [place] [address], [place] [address] 31 Aug, 2009 [facility] [address] [address] [id number] [address] [place] [address], [place] [address] Aug, [facility] [address] [id number] [address] [place] [phone] Aug, [facility] [address] [id number] [address] [place] [id number] Jul, [facility] [address] [id number] [address] [place] [id number] Jul, [facility] [address] [id number] [address] [place] [id number] Jul, [facility] [address] [id number] [address] [place] [id number] Jun, [facility] [address] [id number] [address] [place] [phone] Jun, [facility] [address] [id number] [address] [place] [id number] Jun, [facility] [address] [id number] [address] [place] [id number] Jun, [facility] [address] [id number] [address] [place] [phone] Jun, [facility] [address] [id number] [address] [place] [id number] Jun, [facility] [address] [id number] [address] [place] [id number] Apr, [facility] [address] [id number] [address] [place] [phone] Apr, [facility] [address] [id number] [address] [place] [phone] Feb, [facility] [address] [id number] [address] [place] [id number] January, [facility] [address] [id number] [address] [place] [id number] Dec, IMMUNIZATIONS No Known Immunizations SOCIAL HISTORY Never Assessed REASON FOR VISIT EMR-[facility] [place] PLAN OF CARE VITAL SIGNS MEDICATIONS Unknown [...] colonoscopy 2009 ([facility]), 2013 ([place] ) Surgical History heart cath: CAD w/ [...] History inability to urinate 09/16/15 Hospitalization History [facility] health ea rly 1999's Hospitalization History hyperkalemia 10/2017 Hospitalization History fluid in lung
--- OUTSIDE RECORDS SUMMARY | 2020-03-01 17:32 | XMS REPORT ---
Author Author Michele Verduzco Doctor Organization [facility] Address Unknown Phone Unavailable Care Team Providers Care Digital Marketing Specialist Name Role Phone Migration, Doctor Unavailable Unavailable PROBLEMS Type Condition ICD9-CM Code [id number] Code Onset Dates Condition S tatus SNOMED Code Problem Cough R05 Active 13662742 Problem Benign prostatic hyperplasia with lower urinary tract symptoms, unspecified morphology N40.1 Active 83639 6007 Problem Eustachian tube dysfunction, unspecified laterality H69.80 Active 33792555 Problem Chronic pain G89.29 Active 8974279 1 Problem DM neuro manif type II E11.49 Active 91212292 Problem Diabetes E11.9 Active 65777838 Problem Leukocytosis D72.829 Active 0133727 06 Problem Falling R29.6 Active 905093442 Problem Pressure ulcer of other site, stage 3 L89.893 Active 939772004 Problem 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 Active 838917784 Problem Eye exam abnormal R93.8 Active 16 2552316 Problem Dysuria R30.0 Active 72531444 Problem Hypokalemia E87.6 Active 79828387 Problem Morbid obesity E66.01 Active 31536 6002 Problem Anxiety F41.9 Active 51771192 Problem Diabetic polyneuropathy associated with type 2 d iabetes mellitus E11.42 Active 49046948 Problem Essential hypertension I10 Active 14442259 Problem Bilateral primary osteoarthritis of knee M17.0 Active 366992393 Problem Polyneuropathy associated with underlying disease G63 Active 253620244 Problem Anemia of chronic illness D63.8 Acti ve 724152968 Problem Lymphocytosis D72.820 Active 455884 09 Problem Retinal edema H35.81 Active 617137 6 Problem Chronic lymphocytic leukemia C91.10 A ctive 56534115 Problem Bipolar disorder, in partial remission, most rec ent episode depressed F31.75 Active 84233189 Problem Pure hypercholesterolemia E78.00 Acti ve 237698318 Problem Primary osteoarthritis of right knee M17.11 Active 924623598032605 Problem Bipolar disorder F31.9 Active 137 35062 Problem Bipolar I disorder, most recent episode (or curr ent) mixed, moderate F31.62 Active 91738629 Problem Chronic diastolic (congestive) heart failure I50.3 2 Active 587363665 Problem Reactive airway disease J45.909 Active 939266647708 Problem Insomnia, unspecified type G47.00 Act sharon 272791881 Problem Other chronic pain G89.29 Active 8 8175167 Problem Other iron deficiency anemia D50.8 A ctive 82958574 Problem Mild cognitive impairment G31.84 Acti ve 095330036 Problem Skin cancer C44.90 Active 41982175 7 ALLERGIES No Information ENCOUNTERS Encounter Location Date Diagnosis [facility] [address] [id number] [address] [place] [phone] Mar, [facility] [address] [id number] [address] [place] [phone] Feb, [facility] [address] [facility] [id number] [address] [place] [phone] Feb, [facility] [address] [id number] [address] [place] [phone] January, [facility] [address] [id number] [address] [place] [phone] January, [facility] [address] [facility] [id number] [address] [place] [phone] January, Bipolar disorder, in partial remission, most recent episode depressed F31.75 and Mild cognitive impairment G31.84 [facility] [address] [id number] [address] [place] [id number] January, Chronic pain G89.29 and Bipo lar disorder F31.9 [facility] [address] [facility] [id number] [address] [place] [phone] January, Bipolar disorder, in partial remission, most recent episode depressed F31.75 and Mild cognitive impairment G31.84 [facility] [address] [id number] [address] [place] [phone] Dec, [facility] [address] [facility] [id number] [address] [place] [id number] 17 Dec, 2018 Chronic pain G89.29 and Bipo lar disorder F31.9 [place] [address] [place] [id number] [address] [place] [id number] 17 Dec, 2018 Edema of both lower extremit ies R60.0 [place] [address] [place] [id number] [address] [place] [phone] 15 Dec, 2018 Bipolar disorder F31.9 [place] [address] [place] [id number] [address] [place] [phone] 08 Dec, 2018 Bipolar disorder, in partial remission, most recent episode depressed F31.75 and Mild cognitive impairment G31.84 [place] [address] [place] [id number] [address] [place] [phone] Nov, [place] [address] [address] Nov, Chronic pain G89.29 [place] [address] [place] [phone] Nov, Bipolar disorder, in partial remission, most recent episode depressed F31.75 and Mild cognitive impairment G31.84 [place] [address] [place] [id number] [address] [place] [phone] 18 Nov, 2018 Bipolar disorder F31.9 [place] [id number] [place] [phone] 04 Nov, 2018 Encounter for Medicare ann [...] unspecified morphology N40.1 and Essential hypertension I10 [place] [address] [place] [id number] [address] [place] [phone] Oct, Chronic pain G89.29 [place] [address] [facility] [id number] [address] [place] [phone] 18 Oct, 2018 Diabetes E11.9 [place] [address] [facility] [id number] [address] [place] [phone] Oct, Bipolar I disorder, most rec ent episode (or current) mixed, moderate F31.62 and Mild cognitive impairment G31.84 [place] [address] [facility] [id number] [address] [place] [phone] Oct, Bipolar I disorder, most rec ent episode (or current) mixed, moderate F31.62 and Mild cognitive impairment G31.84 [place] [address] [place] [id number] [address] [place] [phone] Sep, Bipolar I disorder, most rec ent episode (or current) mixed, moderate F31.62 and Mild cognitive impairment G31.84 [place] [address] [place] [id number] [address] [place] [phone] Sep, [place] [id number] [place] [phone] Sep, Diabetes E11.9 ; Hypoxia R09 .02 ; Hyperglycemia R73.9 ; Therapeutic drug monitoring Z51.81 ; BMI 50.0-59.9, adult Z68.43 and Skin cancer C44.90 [place] [address] [facility] [id number] [address] [place] [address] Sep, Chronic pain G89.29 [place] [address] [facility] [id number] [address] [place] [phone] Sep, Bipolar I disorder, most rec ent episode (or current) mixed, moderate F31.62 [place] [address] [facility] [id number] [address] [place] [phone] Sep, [place] [address] [place] [id number] [address] [place] [phone] Sep, [facility] [address] [id number] [address] [place] [phone] Aug, Chronic pain G89.29 [facility] [address] [id number] [address] [place], [place] [address] Aug, Bipolar I disorder, most rec ent episode (or current) mixed, moderate F31.62 [facility] [address] [id number] [address] [place] [phone] Aug, Bipolar I disorder, most rec ent episode (or current) mixed, moderate F31.62 and Mild cognitive impairment G31.84 [facility] [address] [id number] [address] [place] [phone] Jul, [facility] [address] [facility] [id number] [address] [place] [phone] Jul, Chronic pain G89.29 [facility] [address] [id number] [address] [place] [address] Jul, Bipolar I disorder, most rec ent episode (or current) mixed, moderate F31.62 and Mild cognitive impairment G31.84 [facility] [address] [facility] [id number] [address] [place] [phone] Jul, Bipolar I disorder, most rec ent episode (or current) mixed, moderate F31.62 and MCI (mild cognitive impairment) G31.84 [facility] [address] [id number] [address] [place] [phone] Jul, [facility] [address] [id number] [address] [place] [phone] Jul, [facility] [address] [facility] [id number] [address] [place] [id number] Jul, Bipolar I disorder, most rec ent episode (or current) mixed, moderate F31.62 [facility] [address] [facility] [id number] [address] [place] [address] Jul, Chronic pain G89.29 [facility] [address] [id number] [address] [place] [phone] Jun, Bipolar I disorder, most rec ent episode (or current) mixed, moderate F31.62 [facility] [address] [id number] [address] [place] [phone] Jun, Pre-procedure lab exam Z01.8 12 [facility] [address] [id number] [address] [place] [phone] Jun, [facility] [address] [id number] [place] [id number] Jun, [facility] [address] [id number] [address] [place] [phone] Jun, [facility] [address] [id number] [address] [place] [phone] Jun, Forgetfulness R68.89 ; Pre-s yncope R55 ; Localized edema R60.0 ; Other iron deficiency anemia D50.8 and BMI 50.0-59.9, adult Z68.43 [facility] [address] [id number] [address] [place] [phone] Jun, Chronic pain G89.29 [facility] [address] [id number] [address] [place] [phone] Jun, Chronic pain G89.29 [facility] [address] [facility] [id number] [address] [place] [phone] Jun, Bipolar I disorder, most rec ent episode (or current) mixed, moderate F31.62 [facility] [address] [id number] [address] [place] [phone] May, Chronic pain G89.29 [facility] [address] [id number] [address] [place] [phone] Apr, [facility] [address] [id number] [address] [place] [id number] 10 Aug, 2018 Chronic pain G89.29 [facility] [address] [place] [id number] [address] [place] [phone] Apr, Primary osteoarthritis of ri ght knee M17.11 [facility] [address] [facility] [id number] [address] [place] [phone] Mar, [facility] [address] [place] [id number] [address] [place] [address] Mar, BMI 50.0-59.9, adult Z68.43 and Bipolar disorder, in partial remission, most recent episode depressed F31.75 [place] [address] [place] [id number] [address] [place] [phone] Mar, Diabetes E11.9 ; Pure hyperc holesterolemia E78.00 ; Essential hypertension I10 ; Nausea with vomiting, unspecified R11.2 and Headache, unspecified headache type R51 [place] [address] [place] [id number] [address] [place] [phone] Mar, Bipolar I disorder, most rec ent episode (or current) mixed, moderate F31.62 [place] [address] [place] [id number] [address] [place] [phone] Mar, Bipolar I disorder, most rec ent episode (or current) mixed, moderate F31.62 [place] [address] [place] [id number] [address] [place] [phone] Mar, Chronic pain G89.29 [place] [address] [place] [id number] [address] [place] [phone] Mar, Bipolar I disorder, most rec ent episode (or current) mixed, moderate F31.62 [place] [address] [place] [id number] [address] [place] [phone] Feb, Bipolar I disorder, most rec ent episode (or current) mixed, moderate F31.62 [place] [address] [place] [id number] [address] [place] [phone] Feb, Chronic pain G89.29 [place] [address] [place] [id number] [address] [place] [phone] Feb, Decubitus ulcer of right josselin t, stage 3 L89.893 and BMI 50.0-59.9, adult Z68.43 [facility] [address] [facility] [id number] [address] [place] [phone] Feb, Bipolar I disorder, most rec ent episode (or current) mixed, moderate F31.62 [facility] [address] [facility] [id number] [address] [place] [phone] Feb, [facility] [address] [facility] [id number] [address] [place] [phone] January, [place] [address] [facility] [id number] [address] [place] [phone] January, Chronic pain G89.29 [facility] [address] [facility] [id number] [address] [place] [phone] January, Bipolar I disorder, most rec ent episode (or current) mixed, moderate F31.62 [facility] [address] [facility] [id number] [address] [place] [phone] January, Bipolar I disorder, most rec ent episode (or current) mixed, moderate F31.62 [place] [address] [facility] [id number] [address] [place] [id number] Dec, Bipolar I disorder, most rec ent episode (or current) mixed, moderate F31.62 and BMI 50.0-59.9, adult Z68.43 [facility] [address] [facility] [id number] [address] [place] [id number] Dec, Bipolar I disorder, most rec ent episode (or current) mixed, moderate F31.62 [facility] [address] [facility] [id number] [address] [place] [phone] Dec, Chronic pain G89.29 [facility] [address] [facility] [id number] [address] [place] [id number] 18 Apr, 2018 DM neuro manif type II E11.4 9 ; Right flank pain R10.9 ; FCI 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 Z79.891 ; Encounter for medication monitoring Z51.81 and BMI 50.0-59.9, adult Z68.43 [facility] [address] [place] [id number] [address] [place] [phone] 04 Dec, 2017 Bipolar I disorder, most rec ent episode (or current) mixed, moderate F31.62 [place] [address] [place] [id number] [address] [place] [phone] Nov, Bipolar I disorder, most rec ent episode (or current) mixed, moderate F31.62 [place] [address] [place] [id number] [address] [place] [address] Nov, Chronic pain G89.29 [place] [address] [place] [id number] [address] [place] [phone] Nov, Bipolar I disorder, most rec ent episode (or current) mixed, moderate F31.62 [place] [address] [place] [id number] [address] [place] [phone] Nov, Hypokalemia E87.6 [place] [address] [place] [id number] [address] [place] [phone] Nov, Bipolar I disorder, most rec ent episode (or current) mixed, moderate F31.62 [place] [address] [place] [id number] [address] [place] [phone] Oct, Chronic pain G89.29 [place] [address] [place] [id number] [address] [place] [address] Oct, BMI 50.0-59.9, adult Z68.43 and Bipolar I disorder, most recent episode (or current) mixed, moderate F31.62 [place] [address] [place] [id number] [address] [place] [phone] Oct, Bipolar I disorder, most rec ent episode (or current) mixed, moderate F31.62 [place] [address] [place] [id number] [place] [phone] Oct, [facility] [address] [facility] [id number] [address] [place] [phone] Oct, Hypokalemia E87.6 [facility] [address] [place] [id number] [address] [place] [phone] Oct, DM neuro manif type II E11.4 9 [facility] [address] [place] [id number] [address] [place] [phone] Oct, Bipolar I disorder, most rec ent episode (or current) mixed, moderate F31.62 [place] [address] [place] [id number] [place] [phone] 20 Oct, 2017 Bipolar I disorder, most rec ent episode (or current) mixed, moderate F31.62 [place] [address] [address] 14 Oct, 2017 Hyperkalemia E87.5 ; Falling R29.6 ; BMI 50.0-59.9, adult Z68.43 and Acute left ankle pain M25.572 [place] [address] [address] Oct, DM neuro manif type II E11.4 9 [facility] [address] [place] [id number] [address] [place] [phone] Oct, [facility] [address] [phone] Sep, Chronic pain G89.29 [facility] [address] [place] [id number] [address] [place] [address] Sep, [place] [address] [address] Sep, Bilateral primary osteoarthr itis of knee M17.0 [facility] [address] [place] [id number] [address] [place] [phone] Sep, Generalized edema R60.1 [facility] [address] [facility] [id number] [address] [place] [phone] 16 Sep, 2017 Bipolar I disorder, most rec ent episode (or current) mixed, moderate F31.62 [facility] [address] [facility] [id number] [address] [place] [phone] 15 Sep, 2017 Hypoxia R09.02 ; Other hyper volemia E87.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 ; Anemia of chronic illness D63.8 and BMI 50.0- 59.9, adult Z68.43 [place] [address] [facility] [id number] [address] [place] [phone] 03 Sep, 2017 [place] [address] [place] [id number] [address] [place] [phone] Sep, Bipolar I disorder, most rec ent episode (or current) mixed, moderate F31.62 [place] [address] [facility] [id number] [address] [place] [phone] Aug, Chronic pain G89.29 [place] [address] [facility] [id number] [address] [place] [phone] Aug, Generalized edema R60.1 [facility] [address] [facility] [id number] [address] [place] [phone] 18 Aug, 2017 [facility] [address] [facility] [id number] [address] [place] [phone] Aug, [facility] [address] [facility] [id number] [address] [place] [id number] 14 Aug, 2017 Bipolar I disorder, most rec ent episode (or current) mixed, moderate F31.62 [facility] [address] [facility] [id number] [address] [place] [phone] 07 Aug, 2017 Bipolar I disorder, most rec ent episode (or current) mixed, moderate F31.62 [place] [address] [place] [id number] [address] [place] [phone] Aug, Chronic pain G89.29 [facility] [address] [facility] [id number] [address] [place] [phone] Jul, Bipolar I disorder, most rec ent episode (or current) mixed, moderate F31.62 [facility] [address] [place] [id number] [address] [place] [phone] Jul, Bipolar I disorder, most rec ent episode (or current) mixed, moderate F31.62 and BMI 60.0-69.9, adult Z68.44 [place] [address] [facility] [id number] [address] [place] [phone] Jul, Bipolar I disorder, most rec ent episode (or current) mixed, moderate F31.62 [place] [address] [place] [id number] [address] [place] [phone] Jul, Chronic pain G89.29 [place] [address] [place] [id number] [address] [place] [address] Jul, Bipolar I disorder, most rec ent episode (or current) mixed, moderate F31.62 [place] [address] [place] [id number] [address] [place] [address] Jun, Polyneuropathy associated wi th underlying disease G63 and Diabetes E11.9 [place] [address] [facility] [id number] [address] [place] [phone] Jun, Bipolar I disorder, most rec ent episode (or current) mixed, moderate F31.62 [place] [address] [place] [id number] [address] [place] [address] Jun, Chronic pain G89.29 [place] [address] [place] [id number] [address] [place] [phone] May, Bipolar I disorder, most rec ent episode (or current) mixed, moderate F31.62 [place] [address] [place] [id number] [address] [place] [phone] May, Bipolar I disorder, most rec ent episode (or current) mixed, moderate F31.62 [facility] [address] [id number] [address] [place] [phone] 20 May, 2017 Diabetic polyneuropathy asso ciated with type 2 diabetes mellitus E11.42 [facility] [address] [id number] [address] [place] [id number] 18 May, 2017 Bipolar I disorder, most rec ent episode (or current) mixed, moderate F31.62 [facility] [address] [id number] [address] [place] [phone] 13 May, 2017 Bipolar I disorder, most rec ent episode (or current) mixed, moderate F31.62 [facility] [address] [id number] [address] [place] [id number] 12 May, 2017 Chronic pain G89.29 [facility] [address] [id number] [address] [place] [phone] Apr, Bipolar I disorder, most rec ent episode (or current) mixed, moderate F31.62 [facility] [address] [id number] [address] [place] [id number] Apr, [facility] [address] [id number] [address] [place] [phone] Apr, Chronic pain G89.29 and DM n euro manif type II E11.49 [facility] [address] [id number] [address] [place] [phone] Apr, [facility] [address] [id number] [address] [place] [address] [id number] Apr, Bipolar I disorder, most rec ent episode (or current) mixed, moderate F31.62 [facility] [address] [id number] [address] [place] [id number] Apr, Chronic pain G89.29 [facility] [address] [id number] [address] [place] [phone] Apr, Iliotibial band syndrome, le ft M76.32 [facility] [address] [facility] [id number] [address] [place] [phone] Apr, Bipolar I disorder, most rec ent episode (or current) mixed, moderate F31.62 [facility] [address] [facility] [id number] [address] [place] [phone] Mar, Bipolar I disorder, most rec ent episode (or current) mixed, moderate F31.62 [facility] [address] [facility] [id number] [address] [place] [phone] Mar, Bipolar I disorder, most rec ent episode (or current) mixed, moderate F31.62 [facility] [address] [facility] [id number] [address] [place] [phone] Mar, [facility] [address] [place] [id number] [address] [place] [phone] Mar, Bipolar I disorder, most rec ent episode (or current) mixed, moderate F31.62 [facility] [address] [facility] [id number] [address] [place] [phone] Mar, Chronic pain G89.29 [facility] [address] [facility] [id number] [address] [place] [phone] Mar, Bipolar I disorder, most rec ent episode (or current) mixed, moderate F31.62 [facility] [address] [facility] [id number] [address] [place] [phone] Mar, Bipolar I disorder, most rec ent episode (or current) mixed, moderate F31.62 [facility] [address] [facility] [id number] [address] [place] [phone] Mar, Acute pain of left knee M25. 562 ; Left hip pain M25.552 ; Generalized edema R60.1 and Tongue swelling R22.0 [facility] [address] [facility] [id number] [address] [place] [phone] Mar, [facility] [address] [place] [id number] [address] [place] [id number] Feb, Chronic pain G89.29 [facility] [address] [id number] [address] [place] [phone] Feb, Diabetes E11.9 [facility] [address] [id number] [address] [place] [phone] January, Chronic pain G89.29 [facility] [address] [id number] [address] [place] [phone] January, [facility] [address] [id number] [address] [place] [phone] January, Bipolar I disorder, most rec ent episode (or current) mixed, moderate F31.62 [facility] [address] [id number] [address] [place] [phone] Dec, Bipolar I disorder, most rec ent episode (or current) mixed, moderate F31.62 [place] [id number] [facility] [id number] [address] [place] [phone] Dec, Chronic pain G89.29 [facility] [address] [id number] [address] [place] [phone] Dec, Bipolar I disorder, most rec ent episode (or current) mixed, moderate F31.62 [facility] [address] [facility] [id number] [address] [place] [phone] Dec, Diabetes E11.9 ; Essential h ypertension I10 ; Chronic pain G89.29 and Morbid obesity E66.01 [facility] [address] [id number] [address] [place] [phone] Dec, [facility] [address] [facility] [id number] [address] [place] [id number] Dec, Bipolar I disorder, most rec ent episode (or current) mixed, moderate F31.62 [facility] [address] [facility] [id number] [address] [place] [phone] Dec, Bipolar I disorder, most rec ent episode (or current) mixed, moderate F31.62 [facility] [address] [id number] [address] [place] [phone] Nov, Chronic pain G89.29 [facility] [address] [id number] [address] [place] [phone] Nov, Bipolar I disorder, most rec ent episode (or current) mixed, moderate F31.62 [facility] [address] [id number] [address] [place] [phone] Nov, [facility] [address] [id number] [address] [place] [phone] Nov, Bipolar I disorder, most rec ent episode (or current) mixed, moderate F31.62 [facility] [address] [facility] [id number] [address] [place] [phone] Nov, Bipolar I disorder, most rec ent episode (or current) mixed, moderate F31.62 [facility] [address] [facility] [id number] [address] [place] [phone] Nov, [facility] [address] [facility] [id number] [address] [place] [phone] Nov, [facility] [address] [facility] [id number] [address] [place] [phone] Nov, [facility] [address] [facility] [id number] [address] [place] [phone] Oct, Chronic pain G89.29 [facility] [address] [facility] [id number] [address] [place] [phone] Oct, Bipolar I disorder, most rec ent episode (or current) mixed, moderate F31.62 [facility] [address] [id number] [address] [place] [phone] Oct, [facility] [address] [facility] [id number] [address] [place] [phone] Oct, Chronic pain G89.29 ; Diabet es E11.9 ; Anxiety F41.9 and 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 [facility] [address] [id number] [address] [place] [phone] Oct, [facility] [address] [facility] [id number] [address] [place] [phone] Oct, Diabetes E11.9 [facility] [address] [id number] [address] [place] [phone] Oct, Bipolar I disorder, most rec ent episode (or current) mixed, moderate F31.62 [facility] [address] [id number] [address] [place] [phone] Sep, Chronic pain G89.29 [facility] [address] [facility] [id number] [address] [place] [id number] Sep, Chronic pain G89.29 [facility] [address] [facility] [id number] [address] [place] [phone] Aug, Chronic pain G89.29 [facility] [address] [id number] [address] [place] [phone] Jul, [facility] [address] [facility] [id number] [address] [place] [phone] Jul, Diabetes E11.9 [facility] [address] [facility] [id number] [address] [place] [phone] Jul, Chronic pain G89.29 [facility] [address] [facility] [id number] [address] [place] [id number] Jul, Bipolar I disorder, most rec ent episode (or current) mixed, moderate F31.62 [facility] [address] [facility] [id number] [address] [place] [id number] Jun, Bipolar I disorder, most rec ent episode (or current) mixed, moderate F31.62 [facility] [address] [facility] [id number] [address] [place] [phone] Jun, [facility] [address] [facility] [id number] [address] [place] [phone] Jun, Bipolar I disorder, most rec ent episode (or current) mixed, moderate F31.62 [facility] [address] [facility] [id number] [address] [place] [phone] 30 May, 2016 Insomnia, unspecified type G 47.00 [place] [address] [facility] [id number] [address] [place] [phone] May, Bipolar I disorder, most rec ent episode (or current) mixed, moderate F31.62 [place] [address] [facility] [id number] [address] [place] [phone] 14 May, 2016 [place] [address] [place] [id number] [address] [place] [phone] May, Bipolar I disorder, most rec ent episode (or current) mixed, moderate F31.62 [place] [address] [place] [id number] [address] [place] [phone] May, Diabetes E11.9 and Essential hypertension I10 [place] [address] [facility] [id number] [address] [place] [phone] Apr, Chronic pain G89.29 [place] [address] [place] [id number] [address] [place] [phone] Apr, Bipolar I disorder, most rec ent episode (or current) mixed, moderate F31.62 [place] [address] [place] [id number] [address] [place] [phone] Apr, [place] [address] [place] [id number] [address] [place] [phone] Apr, [place] [address] [place] [id number] [address] [place] [phone] Mar, Chronic pain G89.29 ; Headac he, unspecified headache type R51 ; Neuropathy G62.9 ; Pain of right hip joint M25.551 and Essential hypertension I10 [place] [address] [id number] [address] [place] [phone] Mar, Chronic pain G89.29 [facility] [address] [id number] [address] [place] [phone] Mar, Bipolar I disorder, most rec ent episode (or current) mixed, moderate F31.62 [facility] [address] [facility] [id number] [address] [place] [phone] Feb, Bipolar I disorder, most rec ent episode (or current) mixed, moderate F31.62 and Insomnia, unspecified type G47.00 [facility] [address] [id number] [address] [place] [phone] Feb, Chronic pain G89.29 [facility] [address] [facility] [id number] [address] [place] [phone] Feb, Bipolar I disorder, most rec ent episode (or current) mixed, moderate F31.62 [facility] [address] [facility] [id number] [address] [place] [phone] January, Bipolar I disorder, most rec ent episode (or current) mixed, moderate F31.62 [facility] [address] [facility] [id number] [address] [place] [phone] January, Chronic pain G89.29 [facility] [address] [facility] [id number] [address] [place] [phone] January, Chronic pain G89.29 and Esse ntial hypertension I10 [facility] [address] [id number] [address] [place] [phone] January, Bipolar I disorder, most rec ent episode (or current) mixed, moderate F31.62 [facility] [address] [facility] [id number] [address] [place] [phone] Dec, [facility] [address] [facility] [id number] [address] [place] [phone] Dec, [facility] [address] [facility] [id number] [address] [place] [phone] Dec, [facility] [address] [facility] [id number] [address] [place] [phone] Dec, [facility] [address] [facility] [id number] [address] [place] [phone] Nov, Reactive airway disease J45. 909 [facility] [address] [place] [id number] [address] [place] [phone] Nov, [facility] [address] [place] [id number] [place] [phone] Nov, [facility] [address] [facility] [id number] [address] [place] [id number] Nov, [facility] [address] [place] [id number] [place] [phone] Nov, [facility] [address] [address] Nov, Onychomycosis B35.1 ; Hammer toe M20.40 ; Osprey or callus L84 and DM neuro manif type II E11.49 [facility] [address] [phone] Nov, Chronic pain G89.29 ; Leukoc ytosis D72.829 and Diabetes E11.9 [facility] [address] [place] [id number] [address] [place] [phone] Nov, [facility] [address] [place] [id number] [address] [place] [phone] Oct, Bronchitis J40 [facility] [address] [facility] [id number] [address] [place] [phone] Oct, [facility] [address] [place] [id number] [address] [place] [phone] Oct, [facility] [address] [place] [id number] [address] [place] [phone] Oct, Mastoiditis, unspecified lat erality H70.90 and Type 2 diabetes mellitus with complication E11.8 [facility] [address] [facility] [id number] [address] [place] [phone] Sep, [facility] [address] [place] [id number] [address] [place] [phone] Sep, Dysuria R30.0 ; Cough R05 ; Benign prostatic hyperplasia with lower urinary tract symptoms, unspecified morphology N40.1 ; Hypokalemia E87.6 and Eustachian tube dysfunction, unspecified laterality H69.80 [facility] [address] [place] [id number] [address] [place] [phone] Sep, Moderate mixed bipolar I dis order F31.62 [facility] [address] [place] [id number] [address] [place] [phone] Sep, Hypokalemia E87.6 [place] [address] [place] [id number] [address] [place] [phone] Sep, [facility] [address] [place] [id number] [address] [place] [phone] Sep, Upper respiratory tract infe ction, unspecified type J06.9 [facility] [address] [place] [id number] [address] [place] [phone] Aug, [facility] [address] [place] [id number] [address] [place] [phone] Aug, Dysuria R30.0 [facility] [address] [place] [id number] [address] [place] [phone] Aug, [facility] [address] [place] [id number] [address] [place] [phone] Jul, [facility] [address] [place] [id number] [address] [place] [phone] Jul, [facility] [address] [place] [id number] [address] [place] [phone] Jul, [facility] [address] [place] [id number] [address] [place] [phone] Jul, [facility] [address] [facility] [id number] [address] [place] [phone] Jun, [facility] [address] [place] [id number] [address] [place] [phone] Jun, [facility] [address] [place] [id number] [address] [place] [phone] Jun, [facility] [address] [place] [id number] [address] [place] [phone] May, [facility] [address] [place] [id number] [address] [place] [phone] May, Bipolar I disorder, most rec ent episode (or current) mixed, moderate 296.62 [facility] [address] [place] [id number] [place] [phone] May, [facility] [address] [place] [id number] [address] [place] [phone] May, Bipolar I disorder, most rec ent episode (or current) mixed, moderate 296.62 and Major depressive disorder, recurrent episode, severe, specified as with psychotic behavior 296.34 [facility] [address] [place] [id number] [address] [place] [phone] May, Bipolar I disorder, most rec ent episode (or current) mixed, moderate 296.62 [facility] [address] [place] [id number] [address] [place] [phone] May, [facility] [address] [place] [id number] [address] [place] [phone] Apr, [facility] [address] [place] [id number] [address] [place] [phone] Apr, [facility] [address] [place] [id number] [address] [place] [phone] Apr, Unspecified disorder of kidn ey and ureter 593.9 and Diabetes mellitus type 2, uncontrolled 250.02 [facility] [address] [facility] [id number] [address] [place] [phone] Apr, [facility] [address] [facility] [id number] [address] [place] [phone] Apr, [facility] [address] [facility] [id number] [address] [place] [phone] Apr, [facility] [address] [place] [id number] [address] [place] [phone] Apr, [facility] [address] [facility] [id number] [address] [place] [phone] Apr, Diabetes mellitus type II, u ncontrolled 250.02 [facility] [address] [facility] [id number] [address] [place] [phone] Apr, [facility] [address] [phone] Mar, [facility] [address] [place] [id number] [address] [place] [phone] Mar, [facility] [address] [facility] [id number] [address] [place] [phone] Mar, [facility] [address] [place] [id number] [address] [place] [phone] Mar, Major depressive disorder, r ecurrent episode, severe, specified as with psychotic behavior 296.34 and Bipolar I disorder, most recent episode (or current) mixed, moderate 296.62 [facility] [address] [place] [id number] [address] [place] [address] Mar, Diabetes 250.00 ; Anuria 788 .5 ; Nausea and vomiting 787.01 and Diarrhea 787.91 [facility] [address] [place] [id number] [address] [place] [phone] Mar, Diabetes 250.00 [facility] [address] [place] [id number] [address] [place] [phone] Mar, [facility] [address] [place] [id number] [address] [place] [address] Mar, Diabetes 250.00 [facility] [address] [address] Mar, [facility] [address] [phone] Mar, [facility] [address] [phone] Mar, [facility] [address] [phone] Mar, [place] [address] [address] Mar, Bipolar I disorder, most rec ent episode (or current) mixed, moderate 296.62 and Major depressive disorder, recurrent episode, severe, specified as with psychotic behavior 296.[address] [address] Mar, Magnesium deficiency 275.2 ; Hypokalemia 276.8 ; Nausea & vomiting 787.01 and Diabetes mellitus type 2, uncontrolled [address] [address] Feb, [address] [address] Feb, Bipolar I disorder, most rec ent episode (or current) mixed, moderate 296.62 [place] [address] [address] Feb, Nausea and vomiting 787.01 ; Left elbow pain 719.42 ; Anuria 788.5 and Diabetes 250.00 [facility] [address] [place] [id number] [address] [place] [id number] Feb, [facility] [address] [address] Feb, Hypopotassemia 276.8 and Hyp okalemia 276.8 [facility] [address] [id number] [address] [place] [id number] Feb, Hypopotassemia 276.8 and Hyp okalemia 276.8 [facility] [address] [id number] [address] [place] [id number] Feb, Seborrheic keratoses 702.19 [facility] [address] [facility] [id number] [address] [place] [id number] Feb, Hypopotassemia 276.8 and Low magnesium levels 275.2 [facility] [address] [id number] [address] [place] [id number] January, [facility] [address] [facility] [id number] [address] [place] [id number] January, [facility] [address] [facility] [id number] [address] [place] [id number] January, [facility] [address] [facility] [id number] [address] [place] [id number] January, Scalp lesion 709.9 [facility] [address] [facility] [id number] [address] [place] [id number] January, [facility] [address] [facility] [id number] [address] [place] [id number] Dec, Tear of medial cartilage or meniscus of knee, current 836.0 and 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 [facility] [address] [facility] [id number] [address] [place] [id number] Dec, [facility] [address] [id number] [address] [place] [id number] Dec, [facility] [address] [facility] [id number] [address] [place] [id number] Dec, Squamous cell carcinoma, 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 [facility] [address] [facility] [facility] [id number] [address] [place] [address] 14 Dec, 2014 [facility] [address] [id number] [address] [place] [address], [place] [address] 13 Dec, 2014 [facility] [address] [id number] [address] [place] [address], [place] [address] Nov, [facility] [address] [id number] [address] [place] [address], [place] [address] Nov, [facility] [address] [id number] [address] [place] [address], [place] [address] Nov, [facility] [address] [id number] [address] [place] [address], [place] [address] Nov, [facility] [address] [id number] [address] [place] [address], [place] [address] Nov, [facility] [address] [id number] [address] [place] [address], [place] [address] Nov, [facility] [address] [id number] [address] [place] [address], [place] [address] Nov, [facility] [address] [id number] [address] [place] [address], [place] [address] Nov, [facility] [address] [id number] [address] [place] [address], [place] [address] Nov, [facility] [address] [id number] [address] [place] [address], [place] [address] Nov, [facility] [address] [id number] [address] [place] [address], [place] [address] Nov, [facility] [address] [id number] [address] [place] [address], [place] [address] Nov, [facility] [address] [id number] [address] [place] [address], [place] [address] Oct, [facility] [address] [id number] [address] [place] [address], [place] [address] Oct, [facility] [address] [id number] [address] [place] [address], [place] [address] Oct, 2014 [facility] [address] [id number] [address] [place] [address], [place] [address] Oct, 2014 [facility] [address] [id number] [address] [place] [address], [place] [address] Oct, 2014 [facility] [address] [id number] [address] [place] [address], [place] [address] Oct, 2014 [facility] [address] [id number] [address] [place] [address], [place] [address] Oct, 2014 [facility] [address] [id number] [address] [place] [address], [place] [address] Oct, 2014 [facility] [address] [id number] [address] [place] [address], [place] [address] Oct, [facility] [address] [id number] [address] [place] [address], [place] [address] Sep, [facility] [address] [id number] [address] [place] [address], [place] [address] Sep, [facility] [address] [id number] [address] [place] [address], [place] [address] Sep, [facility] [address] [id number] [address] [place] [address], [place] [address] Sep, [facility] [address] [id number] [address] [place] [address], [place] [address] Sep, [facility] [address] [id number] [address] [place] [address] Sep, [facility] [address] [id number] [address] [place] [address], [place] [address] Sep, [facility] [address] [id number] [address] [place] [address], [place] [address] Sep, [facility] [address] [id number] [address] [place] [address] Sep, [facility] [address] [id number] [address] [place] [address], [place] [address] 14 Sep, 2014 [facility] [address] [id number] [address] [place] [address], [place] [address] Sep, [facility] [address] [id number] [address] [place] [address], [place] [address] Sep, [facility] [address] [id number] [address] [place] [address], [place] [address] Sep, [facility] [address] [id number] [address] [place] [address], [place] [address] Sep, [facility] [address] [id number] [address] [place] [address], [place] [address] Sep, [facility] [address] [id number] [address] [place] [address], [place] [address] Sep, [facility] [address] [id number] [address] [place] [address], [place] [address] Aug, [facility] [address] [id number] [address] [place] [address], [place] [address] Aug, [facility] [address] [id number] [address] [place] [address], [place] [address] Aug, [facility] [address] [id number] [address] [place] [address], [place] [address] 31 Aug, 2014 [facility] [address] [id number] [address] [place] [address], [place] [address] 31 Aug, 2014 [facility] [address] [id number] [address] [place] [address], [place] [address] 31 Aug, 2014 [facility] [address] [id number] [address] [place] [address], [place] [address] 17 Aug, 2014 [facility] [address] [id number] [address] [place] [address], [place] [address] 17 Aug, 2014 [facility] [address] [id number] [address] [place] [address], [place] [address] Aug, [facility] [address] [id number] [facility] [place] [address] Aug, [facility] [address] [id number] [address] [place] [address], [place] [address] Aug, [facility] [place] [id number] Aug, [facility] [address] [id number] [address] [place] [address], [place] [address] Aug, [facility] [address] [id number] [address] [place] [address], [place] [address] Aug, [facility] [address] [id number] [address] [place] [address], [place] [address] Aug, [facility] [address] [id number] [address] [place] [address], [place] [address] Aug, [facility] [address] [id number] [address] [place] [address], [place] [address] Aug, [facility] [address] [id number] [address] [place] [address], [place] [address] Aug, [facility] [address] [id number] [address] [place] [address], [place] [address] Aug, [facility] [address] [id number] [address] [place] [address], [place] [address] Aug, [facility] [address] [id number] [address] [place] [address], [place] [address] Aug, [facility] [address] [id number] [address] [place] [address], [place] [address] Aug, [facility] [address] [id number] [address] [place] [address], [place] [address] Aug, [facility] [address] [id number] [address] [place] [address], [place] [address] Aug, [facility] [address] [id number] [address] [place] [address], [place] [address] Aug, [facility] [address] [id number] [address] [place] [address], [place] [address] Aug, [facility] [address] [id number] [address] [place] [address], [place] [address] Aug, [facility] [address] [id number] [address] [place] [address], [place] [address] Aug, [facility] [address] [id number] [address] [place] [address], [place] [address] Aug, [facility] [address] [id number] [address] [place] [address], [place] [address] Aug, [facility] [address] [id number] [address] [place] [address], [place] [address] Jul, [facility] [address] [id number] [address] [place] [address], [place] [address] Jul, [facility] [address] [id number] [address] [place] [address], [place] [address] Jul, [facility] [address] [id number] [address] [place] [address], [place] [address] Jul, [facility] [address] [id number] [address] [place] [address], [place] [address] Jul, [facility] [address] [id number] [address] [place] [address], [place] [address] Jul, [facility] [address] [id number] [address] [place] [address], [place] [address] Jul, [facility] [address] [id number] [address] [place] [address], [place] [address] Jul, [facility] [address] [id number] [address] [place] [address], [place] [address] Jul, [facility] [address] [id number] [address] [place] [address], [place] [address] Jul, [facility] [address] [id number] [address] [place] [address], [place] [address] Jun, [facility] [address] [id number] [address] [place] [address], [place] [address] Jun, [facility] [address] [id number] [address] [place] [address], [place] [address] Jun, [facility] [address] [id number] [address] [place] [address], [place] [address] Jun, [facility] [address] [id number] [address] [place] [address], [place] [address] Jun, [facility] [address] [id number] [address] [place] [address], [place] [address] Jun, [facility] [address] [id number] [address] [place] [address], [place] [address] Jun, [facility] [address] [id number] [address] [place] [address], [place] [address] Jun, [facility] [address] [id number] [address] [place] [address], [place] [address] Jun, [facility] [address] [id number] [address] [place] [address], [place] [address] Jun, [facility] [address] [id number] [address] [place] [address], [place] [address] 29 May, 2014 [facility] [address] [id number] [address] [place] [address], [place] [address] 29 May, 2013 [facility] [address] [id number] [address] [place] [address], [place] [address] 26 May, 2014 [facility] [address] [id number] [address] [place] [address], [place] [address] 26 May, 2013 [facility] [address] [id number] [address] [place] [address], [place] [address] 17 May, 2013 [facility] [address] [id number] [address] [place] [address], [place] [address] 17 May, 2013 [facility] [address] [id number] [facility] [place] [address] 15 May, 2013 [facility] [address] [id number] [address] [place] [address], [place] [address] 15 May, 2013 [facility] [address] [id number] [address] [place] [address], [place] [address] 15 May, 2013 [facility] [address] [id number] [address] [place] [address], [place] [address] 15 May, 2013 [facility] [address] [id number] [address] [place] [address], [place] [address] 10 May, 2013 [facility] [address] [id number] [address] [place] [address], [place] [address] 10 May, 2013 [facility] [address] [id number] [address] [place] [address], [place] [address] 09 May, 2013 [facility] [address] [id number] [address] [place] [address], [place] [address] 09 May, 2013 [facility] [address] [id number] [address] [place] [address], [place] [address] 04 May, 2013 [facility] [address] [id number] [address] [place] [address], [place] [address] 04 May, 2013 [facility] [address] [id number] [address] [place] [address], [place] [address] Apr, [facility] [address] [id number] [address] [place] [address], [place] [address] Apr, [facility] [address] [id number] [address] [place] [address], [place] [address] Apr, [facility] [address] [id number] [address] [place] [address], [place] [address] Apr, [facility] [address] [id number] [address] [place] [address], [place] [address] Apr, [facility] [address] [id number] [facility] [place] [address] Apr, [facility] [address] [id number] [facility] [place] [address] Apr, [facility] [address] [id number] [facility] [place] [address] Apr, [facility] [address] [id number] [address] [place] [address], [place] [address] Apr, [facility] [address] [id number] [address] [place] [address], [place] [address] Apr, [facility] [address] [id number] [address] [place] [address], [place] [address] Apr, [facility] [address] [id number] [address] [place] [address], [place] [address] Apr, [facility] [address] [id number] [address] [place] [address], [place] [address] Apr, [facility] [address] [id number] [address] [place] [address], [place] [address] Apr, [facility] [address] [id number] [address] [place] [address], [place] [address] Apr, [facility] [address] [id number] [address] [place] [address], [place] [address] Mar, [facility] [address] [id number] [address] [place] [address], [place] [address] Mar, [facility] [address] [id number] [address] [place] [address], [place] [address] Mar, [facility] [address] [id number] [address] [place] [address], [place] [address] Mar, [facility] [address] [id number] [address] [place] [address], [place] [address] Mar, [facility] [address] [id number] [address] [place] [address], [place] [address] Mar, [facility] [address] [id number] [address] [place] [address], [place] [address] Mar, 2013 [facility] [address] [id number] [address] [place] [address], [place] [address] Mar, 2013 [facility] [address] [id number] [address] [place] [address], [place] [address] Mar, 2013 [facility] [address] [id number] [address] [place] [address], [place] [address] Mar, 2013 [facility] [address] [id number] [address] [place] [address], [place] [address] Mar, 2013 [facility] [address] [id number] [address] [place] [address], [place] [address] Mar, 2013 [facility] [address] [id number] [address] [place] [address], [place] [address] Mar, 2013 [facility] [address] [id number] [address] [place] [address], [place] [address] Mar, 2013 [facility] [address] [id number] [address] [place] [address], [place] [address] Mar, 2013 [facility] [address] [id number] [address] [place] [address], [place] [address] Mar, 2013 [facility] [address] [id number] [address] [place] [address], [place] [address] Mar, 2013 [facility] [address] [id number] [address] [place] [address], [place] [address] Mar, [facility] [address] [id number] [address] [place] [address], [place] [address] Feb, [facility] [address] [id number] [address] [place] [address], [place] [address] Feb, [facility] [address] [id number] [address] [place] [address], [place] [address] Feb, [facility] [address] [id number] [address] [place] [address] 16 Feb, 2014 [facility] [address] [id number] [facility] [place] [address] Feb, [facility] [address] [id number] [facility] [place] [address] Feb, [facility] [address] [id number] [facility] [place] [address] Feb, [facility] [address] [id number] [address] [place] [address], [place] [address] Feb, [facility] [address] [id number] [address] [place] [address], [place] [address] Feb, [facility] [address] [id number] [address] [place] [address], [place] [address] Feb, [facility] [address] [id number] [address] [place] [address], [place] [address] Feb, [facility] [address] [id number] [address] [place] [address], [place] [address] Feb, [facility] [address] [id number] [address] [place] [address], [place] [address] Feb, [facility] [address] [id number] [address] [place] [address], [place] [address] Feb, [facility] [address] [id number] [address] [place] [address], [place] [address] January, [facility] [address] [id number] [address] [place] [address], [place] [address] January, [facility] [address] [id number] [address] [place] [address], [place] [address] January, [facility] [address] [id number] [address] [place] [address], [place] [address] January, [facility] [address] [id number] [address] [place] [address], [place] [address] January, [facility] [address] [id number] [facility] [place] [address] January, [facility] [address] [id number] [facility] [place] [address] January, [facility] [address] [id number] [facility] [place] [address] January, [facility] [address] [id number] [address] [place] [address], [place] [address] January, [facility] [address] [id number] [address] [place] [address], [place] [address] January, [facility] [address] [id number] [address] [place] [address], [place] [address] January, [facility] [address] [id number] [address] [place] [address], [place] [address] January, [facility] [address] [id number] [address] [place] [address], [place] [address] January, [facility] [address] [id number] [address] [place] [address], [place] [address] January, [facility] [address] [id number] [address] [place] [address], [place] [address] Dec, [facility] [address] [id number] [address] [place] [address], [place] [address] Dec, [facility] [address] [id number] [address] [place] [address], [place] [address] Dec, [facility] [address] [id number] [address] [place] [address], [place] [address] Dec, [facility] [address] [id number] [address] [place] [address], [place] [address] Dec, [facility] [address] [id number] [address] [place] [address], [place] [address] Dec, [facility] [address] [id number] [address] [place] [address], [place] [address] Dec, [facility] [address] [id number] [facility] [place] [address] Dec, [facility] [address] [id number] [address] [place] [address], [place] [address] Dec, [facility] [address] [id number] [address] [place] [address], [place] [address] Dec, [facility] [address] [id number] [address] [place] [address], [place] [address] Nov, [facility] [address] [id number] [address] [place] [address], [place] [address] Nov, [facility] [address] [id number] [address] [place] [address], [place] [address] Nov, [facility] [address] [id number] [address] [place] [address], [place] [address] Nov, [facility] [address] [id number] [address] [place] [address], [place] [address] Nov, [facility] [address] [id number] [address] [place] [address], [place] [address] Nov, [facility] [address] [id number] [address] [place] [address], [place] [address] Nov, [facility] [address] [id number] [address] [place] [address], [place] [address] Nov, [facility] [address] [id number] [address] [place] [address], [place] [address] Nov, [facility] [address] [id number] [address] [place] [address], [place] [address] Nov, [facility] [address] [id number] [address] [place] [address], [place] [address] Oct, [facility] [address] [id number] [address] [place] [address], [place] [address] Oct, [facility] [address] [id number] [address] [place] [address], [place] [address] Oct, [facility] [address] [id number] [address] [place] [address], [place] [address] Oct, [facility] [address] [id number] [address] [place] [address], [place] [address] Oct, [facility] [address] [id number] [address] [place] [address], [place] [address] Oct, [facility] [address] [id number] [address] [place] [address], [place] [address] Oct, [facility] [address] [id number] [address] [place] [address], [place] [address] Oct, [facility] [address] [id number] [address] [place] [address], [place] [address] Oct, [facility] [address] [id number] [address] [place] [address], [place] [address] Oct, [facility] [address] [id number] [address] [place] [address], [place] [address] Oct, [facility] [address] [id number] [address] [place] [address], [place] [address] Oct, [facility] [address] [id number] [address] [place] [address], [place] [address] Oct, [facility] [address] [id number] [address] [place] [address], [place] [address] Oct, [facility] [address] [id number] [address] [place] [address], [place] [address] Sep, [facility] [address] [id number] [address] [place] [address], [place] [address] Sep, [facility] [address] [id number] [address] [place] [address], [place] [address] Sep, [facility] [address] [id number] [address] [place] [address] 15 Sep, 2013 [facility] [address] [id number] [address] [place] [address], [place] [address] 14 Sep, 2013 [facility] [address] [id number] [address] [place] [address], [place] [address] 14 Sep, 2013 [facility] [address] [id number] [address] [place] [address], [place] [address] Sep, [facility] [address] [id number] [address] [place] [address], [place] [address] Sep, [facility] [address] [id number] [address] [place] [address], [place] [address] Sep, [facility] [address] [id number] [address] [place] [address], [place] [address] Sep, [facility] [address] [id number] [address] [place] [address], [place] [address] Aug, [facility] [address] [id number] [address] [place] [address], [place] [address] Aug, [facility] [address] [id number] [address] [place] [address], [place] [address] Jul, [facility] [address] [id number] [address] [place] [address], [place] [address] Jul, [facility] [address] [id number] [address] [place] [address], [place] [address] Jul, [facility] [address] [id number] [address] [place] [address], [place] [address] Jul, [facility] [address] [id number] [address] [place] [address], [place] [address] Jul, [facility] [address] [id number] [address] [place] [address], [place] [address] Jul, [facility] [address] [id number] [address] [place] [address], [place] [address] Jul, [facility] [address] [id number] [address] [place] [address], [place] [address] 12 Jul, 2013 [facility] [address] [id number] [address] [place] [address], [place] [address] Jul, [facility] [address] [id number] [address] [place] [address], [place] [address] 08 Jul, 2013 [facility] [address] [id number] [address] [place] [address], [place] [address] Jul, 2012 [facility] [address] [id number] [address] [place] [address], [place] [address] Jul, 2012 [facility] [address] [id number] [address] [place] [address], [place] [address] Jul, [facility] [address] [id number] [address] [place] [address], [place] [address] Jul, [facility] [address] [id number] [address] [place] [address], [place] [address] Jul, [facility] [address] [id number] [address] [place] [address], [place] [address] Jul, [facility] [address] [id number] [address] [place] [address], [place] [address] Jul, [facility] [address] [id number] [address] [place] [address], [place] [address] Jul, [facility] [address] [id number] [address] [place] [address], [place] [address] Jul, [facility] [address] [id number] [address] [place] [address], [place] [address] Jun, [facility] [address] [id number] [address] [place] [address], [place] [address] Jun, [facility] [address] [id number] [address] [place] [address], [place] [address] Jun, [facility] [address] [id number] [address] [place] [address], [place] [address] Jun, [facility] [address] [id number] [address] [place] [address], [place] [address] 16 Jun, 2013 [facility] [address] [id number] [address] [place] [address], [place] [address] 16 Jun, 2013 [facility] [address] [id number] [address] [place] [address], [place] [address] 10 Jun, 2013 [facility] [address] [id number] [address] [place] [address], [place] [address] 10 Jun, 2013 [facility] [address] [id number] [address] [place] [address], [place] [address] Jun, [facility] [address] [id number] [address] [place] [address], [place] [address] 09 Jun, 2013 [facility] [address] [id number] [address] [place] [address], [place] [address] Jun, [facility] [address] [id number] [address] [place] [address] 26 Sep, 2012 [facility] [address] [id number] [address] [place] [address], [place] [address] 25 Sep, 2012 [facility] [address] [id number] [address] [place] [address] 19 Sep, 2012 [facility] [address] [id number] [address] [place] [address], [place] [address] 17 Sep, 2012 [facility] [address] [id number] [address] [place] [address] 11 Sep, 2012 [facility] [address] [id number] [address] [place] [address], [place] [address] 10 Sep, 2012 [facility] [address] [id number] [address] [place] [address] 09 Sep, 2012 [facility] [address] [id number] [address] [place] [address], [place] [address] 05 Sep, 2012 [facility] [address] [id number] [address] [place] [address], [place] [address] Apr, [facility] [address] [id number] [address] [place] [address], [place] [address] Apr, [facility] [address] [id number] [address] [place] [address], [place] [address] Apr, [facility] [address] [id number] [address] [place] [address], [place] [address] Apr, [facility] [address] [id number] [address] [place] [address], [place] [address] Apr, [facility] [address] [id number] [address] [place] [address], [place] [address] Mar, [facility] [address] [id number] [address] [place] [address], [place] [address] Mar, [facility] [address] [id number] [address] [place] [address], [place] [address] Mar, [facility] [address] [id number] [address] [place] [address], [place] [address] Mar, [facility] [address] [id number] [address] [place] [address], [place] [address] Mar, [facility] [address] [id number] [address] [place] [address], [place] [address] Mar, [facility] [address] [id number] [address] [place] [address], [place] [address] Mar, [facility] [address] [id number] [address] [place] [address], [place] [address] Mar, [facility] [address] [id number] [address] [place] [address], [place] [address] Feb, [facility] [address] [id number] [address] [place] [address], [place] [address] Feb, [facility] [address] [id number] [address] [place] [address], [place] [address] January, [facility] [address] [id number] [address] [place] [address], [place] [address] January, [facility] [address] [id number] [address] [place] [address], [place] [address] Dec, [facility] [address] [id number] [address] [place] [address], [place] [address] Dec, [facility] [address] [id number] [address] [place] [address], [place] [address] Nov, [facility] [address] [id number] [address] [place] [address], [place] [address] Nov, [facility] [address] [id number] [address] [place] [address], [place] [address] Nov, [facility] [address] [id number] [address] [place] [address], [place] [address] Nov, [facility] [address] [id number] [address] [place] [address], [place] [address] Oct, [facility] [address] [id number] [address] [place] [address], [place] [address] Oct, [facility] [address] [id number] [address] [place] [address], [place] [address] Oct, [facility] [address] [id number] [address] [place] [address], [place] [address] Oct, [facility] [address] [id number] [address] [place] [address], [place] [address] 16 Oct, 2012 [facility] [address] [id number] [address] [place] [address], [place] [address] 14 Oct, 2012 [facility] [address] [id number] [address] [place] [address], [place] [address] 08 Oct, 2012 [facility] [address] [id number] [address] [place] [address], [place] [address] 07 Oct, 2012 [facility] [address] [id number] [address] [place] [address], [place] [address] 03 Oct, 2012 [facility] [address] [id number] [address] [place] [address], [place] [address] 30 Sep, 2012 [facility] [address] [id number] [address] [place] [address], [place] [address] Sep, [facility] [address] [id number] [address] [place] [address], [place] [address] Sep, [facility] [address] [id number] [address] [place] [address], [place] [address] Sep, [facility] [address] [id number] [address] [place] [address], [place] [address] Sep, [facility] [address] [id number] [address] [place] [address], [place] [address] Sep, [facility] [address] [id number] [address] [place] [address], [place] [address] Sep, [facility] [address] [id number] [address] [place] [address], [place] [address] Sep, [facility] [address] [id number] [address] [place] [address], [place] [address] 31 Aug, 2012 [facility] [address] [id number] [address] [place] [address], [place] [address] 31 Aug, 2012 [facility] [address] [id number] [address] [place] [address], [place] [address] Aug, [facility] [address] [id number] [address] [place] [address], [place] [address] Aug, [facility] [address] [id number] [address] [place] [address], [place] [address] Aug, [facility] [address] [id number] [address] [place] [address], [place] [address] Aug, [facility] [address] [id number] [address] [place] [address], [place] [address] 18 Aug, 2012 [facility] [address] [id number] [address] [place] [address], [place] [address] Aug, [facility] [address] [id number] [address] [place] [address], [place] [address] Jul, [facility] [address] [id number] [address] [place] [address], [place] [address] Jul, [facility] [address] [id number] [address] [place] [address], [place] [address] Jul, [facility] [address] [id number] [address] [place] [address], [place] [address] Jul, [facility] [address] [id number] [address] [place] [address], [place] [address] Jul, [facility] [address] [id number] [address] [place] [address], [place] [address] Jul, [facility] [address] [id number] [address] [place] [address], [place] [address] Jun, [facility] [address] [id number] [address] [place] [address], [place] [address] Jun, [facility] [address] [id number] [address] [place] [address], [place] [address] Jun, [facility] [address] [id number] [address] [place] [address], [place] [address] Jun, [facility] [address] [id number] [address] [place] [address], [place] [address] Jun, [facility] [address] [id number] [address] [place] [address], [place] [address] Jun, [facility] [address] [id number] [address] [place] [address], [place] [address] Jun, [facility] [address] [id number] [address] [place] [address], [place] [address] Jun, [facility] [address] [id number] [address] [place] [address], [place] [address] Jun, [facility] [address] [id number] [address] [place] [address], [place] [address] 26 May, 2012 [facility] [address] [id number] [address] [place] [address], [place] [address] 24 May, 2012 [facility] [address] [id number] [address] [place] [address], [place] [address] May, [facility] [address] [id number] [address] [place] [address], [place] [address] Apr, [facility] [address] [id number] [address] [place] [address], [place] [address] Apr, [facility] [address] [id number] [address] [place] [address], [place] [address] Apr, [facility] [address] [id number] [address] [place] [address], [place] [address] Apr, [facility] [address] [id number] [address] [place] [address], [place] [address] Apr, [facility] [address] [id number] [address] [place] [address], [place] [address] Apr, [facility] [address] [id number] [address] [place] [address], [place] [address] Mar, [facility] [address] [id number] [address] [place] [address], [place] [address] Mar, [facility] [address] [id number] [address] [place] [address], [place] [address] Mar, [facility] [address] [id number] [address] [place] [address], [place] [address] Mar, [facility] [address] [id number] [address] [place] [address], [place] [address] Feb, [facility] [address] [id number] [address] [place] [address], [place] [address] Feb, [facility] [address] [id number] [address] [place] [address], [place] [address] Feb, [facility] [address] [id number] [address] [place] [address], [place] [address] Feb, [facility] [address] [id number] [address] [place] [address], [place] [address] Feb, [facility] [address] [id number] [address] [place] [address], [place] [address] January, [facility] [address] [id number] [address] [place] [address], [place] [address] January, [facility] [address] [id number] [address] [place] [address], [place] [address] January, [facility] [address] [id number] [address] [place] [address], [place] [address] January, [facility] [address] [id number] [address] [place] [address], [place] [address] January, [facility] [address] [id number] [address] [place] [address], [place] [address] January, [facility] [address] [id number] [address] [place] [address], [place] [address] Dec, [facility] [address] [id number] [address] [place] [address], [place] [address] Dec, [facility] [address] [id number] [address] [place] [address], [place] [address] Dec, [facility] [address] [id number] [address] [place] [address], [place] [address] Dec, [facility] [address] [id number] [address] [place] [address], [place] [address] Dec, [facility] [address] [id number] [address] [place] [address], [place] [address] Nov, [facility] [address] [id number] [address] [place] [address], [place] [address] 14 Nov, 2011 [facility] [address] [id number] [address] [place] [address], [place] [address] 12 Nov, 2011 [facility] [address] [id number] [address] [place] [address], [place] [address] 07 Nov, 2011 [facility] [address] [id number] [address] [place] [address], [place] [address] 29 Oct, 2011 [facility] [address] [id number] [address] [place] [address], [place] [address] 28 Oct, 2011 [facility] [address] [id number] [address] [place] [address], [place] [address] 24 Oct, 2011 [facility] [address] [id number] [address] [place] [address], [place] [address] 13 Oct, 2011 [facility] [address] [id number] [address] [place] [address], [place] [address] 08 Oct, 2011 [facility] [address] [id number] [address] [place] [address], [place] [address] Sep, [facility] [address] [id number] [address] [place] [address], [place] [address] Sep, [facility] [address] [id number] [address] [place] [address], [place] [address] Sep, [facility] [address] [id number] [address] [place] [address], [place] [address] Sep, [facility] [address] [id number] [address] [place] [address], [place] [address] Sep, [facility] [address] [id number] [address] [place] [address], [place] [address] Sep, [facility] [address] [id number] [address] [place] [address], [place] [address] Aug, [facility] [address] [id number] [address] [place] [address], [place] [address] Aug, [facility] [address] [id number] [address] [place] [address], [place] [address] Aug, [facility] [address] [id number] [address] [place] [address], [place] [address] Jul, [facility] [address] [id number] [address] [place] [address], [place] [address] Jul, [facility] [address] [id number] [address] [place] [address], [place] [address] Jul, [facility] [address] [id number] [address] [place] [address], [place] [address] Jul, [facility] [address] [id number] [address] [place] [address], [place] [address] Jun, [facility] [address] [id number] [address] [place] [address], [place] [address] Jun, [facility] [address] [id number] [address] [place] [address], [place] [address] Jun, [facility] [address] [id number] [address] [place] [address], [place] [address] Jun, [facility] [address] [id number] [address] [place] [address], [place] [address] Jun, [facility] [address] [id number] [address] [place] [address], [place] [address] Jun, [facility] [address] [id number] [address] [place] [address], [place] [address] Mar, [facility] [address] [id number] [address] [place] [address], [place] [address] Dec, [facility] [address] [id number] [address] [place] [address], [place] [address] Dec, [facility] [address] [id number] [address] [place] [address], [place] [address] Nov, [facility] [address] [id number] [address] [place] [address], [place] [address] 16 Nov, 2010 [facility] [address] [id number] [address] [place] [address], [place] [address] 10 Sep, 2010 [facility] [address] [id number] [address] [place] [address], [place] [address] Aug, [facility] [address] [id number] [address] [place] [address], [place] [address] Aug, [facility] [address] [id number] [address] [place] [address], [place] [address] Aug, [facility] [address] [id number] [address] [place] [address], [place] [address] Aug, [facility] [address] [id number] [address] [place] [address], [place] [address] Aug, [facility] [address] [id number] [address] [place] [address], [place] [address] Aug, [facility] [address] [id number] [address] [place] [address], [place] [address] Aug, [facility] [address] [id number] [address] [place] [address], [place] [address] Aug, [facility] [address] [id number] [address] [place] [address], [place] [address] Aug, [facility] [address] [id number] [address] [place] [address], [place] [address] Aug, [facility] [address] [id number] [address] [place] [address], [place] [address] Aug, [facility] [address] [id number] [address] [place] [address], [place] [address] Aug, [facility] [address] [id number] [address] [place] [address], [place] [address] Jul, [facility] [address] [id number] [address] [place] [address], [place] [address] Jul, [facility] [address] [id number] [address] [place] [address], [place] [address] 30 Jul, 2010 [facility] [address] [id number] [address] [place] [address], [place] [address] 17 Jul, 2010 [facility] [address] [id number] [address] [place] [address], [place] [address] 08 Jul, 2010 [facility] [address] [id number] [address] [place] [address], [place] [address] Jul, [facility] [address] [id number] [address] [place] [address], [place] [address] 24 Jun, 2010 [facility] [address] [id number] [address] [place] [address], [place] [address] Jun, [facility] [address] [id number] [address] [place] [address], [place] [address] Jun, [facility] [address] [id number] [address] [place] [address], [place] [address] Jun, [facility] [address] [id number] [address] [place] [address], [place] [address] 16 Apr, 2010 [facility] [address] [id number] [address] [place] [address], [place] [address] Mar, [facility] [address] [id number] [address] [place] [address], [place] [address] Feb, [facility] [address] [id number] [address] [place] [address] January, [facility] [address] [id number] [address] [place] [address] 15 Dec, 2009 [facility] [address] [id number] [address] [place] [address], [place] [address] Nov, [facility] [address] [id number] [address] [place] [address], [place] [address] 31 Aug, 2009 [facility] [address] [id number] [address] [place] [address], [place] [address] Aug, [facility] [address] [id number] [address] [place] [address] Aug, [facility] [facility] [address] [id number] [address] [place] [phone] Jul, [facility] [address] [id number] [address] [place] [phone] Jul, [facility] [address] [id number] [address] [place] [id number] Jul, [facility] [address] [id number] [address] [place] [phone] Jun, [facility] [address] [id number] [address] [place] [phone] Jun, [facility] [address] [id number] [address] [place] [phone] Jun, [facility] [address] [id number] [address] [place] [phone] Jun, [facility] [address] [id number] [address] [place] [phone] Jun, [facility] [address] [id number] [address] [place] [phone] Jun, [facility] [address] [id number] [address] [place] [phone] Apr, [facility] [address] [id number] [address] [place] [phone] Apr, [facility] [address] [id number] [address] [place] [phone] Feb, [facility] [address] [id number] [address] [place] [phone] January, [facility] [address] [id number] [address] [place] [phone] Dec, IMMUNIZATIONS No Known Immunizations SOCIAL HISTORY Never Assessed REASON FOR VISIT EMR[place] [place] OF CARE VITAL SIGNS MEDICATIONS Unknown [...] EGD ([facility]) 2009 Surgical History colonoscopy 2009 ([facility]), 2013 ([place] ) Surgical History heart cath: CAD w/ [...] [facility] health ea rly 1999's Hospitalization History hyperkalemia 10/2017 Hospitalization History fluid in lung
[2020-03-01] MEDS ORDERED: NS IV 500 ML 500 ML IV ONE (17:33)
[2020-03-01] MEDS ORDERED: inSUlin (REGULAR) HUMAN 1 UNIT/0.01 ML (CHARGE PER UNIT) IV STA (17:33)
--- OUTSIDE RECORDS SUMMARY | 2020-03-01 17:33 | XMS REPORT ---
Author Author Michele Verduzco Doctor Organization [facility] Address Unknown Phone Unavailable Care Team Providers Care Commercial Intern Name Role Phone Migration, Doctor Unavailable Unavailable PROBLEMS Type Condition ICD9-CM Code JYQ35-OD Code Onset Dates Condition S tatus SNOMED Code Problem Cough R05 Active 96589217 Problem Benign prostatic hyperplasia with lower urinary tract symptoms, unspecified morphology N40.1 Active 75072 6007 Problem Eustachian tube dysfunction, unspecified laterality H69.80 Active 68573572 Problem Chronic pain G89.29 Active 4484101 1 Problem DM neuro manif type II E11.49 Active 36677276 Problem Diabetes E11.9 Active 50547013 Problem Leukocytosis D72.829 Active 6425287 06 Problem Falling R29.6 Active 674903234 Problem Pressure ulcer of other site, stage 3 L89.893 Active 569114448 Problem 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 Active 857526143 Problem Eye exam abnormal R93.8 Active 16 7970530 Problem Dysuria R30.0 Active 62609469 Problem Hypokalemia E87.6 Active 39842630 Problem Morbid obesity E66.01 Active 42819 6002 Problem Anxiety F41.9 Active 73250006 Problem Diabetic polyneuropathy associated with type 2 d iabetes mellitus E11.42 Active 51012783 Problem Essential hypertension I10 Active 47996020 Problem Bilateral primary osteoarthritis of knee M17.0 Active 152700677 Problem Polyneuropathy associated with underlying disease G63 Active 459161023 Problem Anemia of chronic illness D63.8 Acti ve 096028963 Problem Lymphocytosis D72.820 Active 605319 09 Problem Retinal edema H35.81 Active 928311 6 Problem Chronic lymphocytic leukemia C91.10 A ctive 11871647 Problem Bipolar disorder, in partial remission, most rec ent episode depressed F31.75 Active 44697240 Problem Pure hypercholesterolemia E78.00 Acti ve 153722340 Problem Primary osteoarthritis of right knee M17.11 Active [id number] Problem Bipolar disorder F31.9 Active 137 98661 Problem Bipolar I disorder, most recent episode (or curr ent) mixed, moderate F31.62 Active 55236895 Problem Chronic diastolic (congestive) heart failure I50.3 2 Active 452657826 Problem Reactive airway disease J45.909 Active 688522394138 Problem Insomnia, unspecified type G47.00 Act sharon 191797066 Problem Other chronic pain G89.29 Active 8 8422416 Problem Other iron deficiency anemia D50.8 A ctive 57713278 Problem Mild cognitive impairment G31.84 Acti ve 937156851 Problem Skin cancer C44.90 Active 82509312 7 ALLERGIES No Information ENCOUNTERS Encounter Location Date Diagnosis [facility] [address] [id number] [address] [place] [id number] Mar, [facility] [address] [id number] [address] [place] [address] Feb, [facility] [address] [facility] [id number] [address] [place] [phone] Feb, [facility] [address] [id number] [address] [place] [address] January, [facility] [address] [id number] [address] [place] [address] January, [facility] [address] [facility] [id number] [address] [place] [address] January, Bipolar disorder, in partial remission, most recent episode depressed F31.75 and Mild cognitive impairment G31.84 [facility] [address] [id number] [address] [place] [address] January, Chronic pain G89.29 and Bipo lar disorder F31.9 [facility] [address] [facility] [id number] [address] [place] [address] January, Bipolar disorder, in partial remission, most recent episode depressed F31.75 and Mild cognitive impairment G31.84 [facility] [address] [id number] [address] [place] [address] Dec, [facility] [address] [facility] [id number] [address] [place] [address] 17 Dec, 2018 Chronic pain G89.29 and Bipo lar disorder F31.9 [facility] [address] [place] [id number] [address] [place] [address] 17 Dec, 2018 Edema of both lower extremit ies R60.0 [facility] [address] [place] [id number] [address] [place] [id number] 15 Dec, 2018 Bipolar disorder F31.9 [facility] [address] [place] [id number] [address] [place] [address] 08 Dec, 2018 Bipolar disorder, in partial remission, most recent episode depressed F31.75 and Mild cognitive impairment G31.84 [facility] [address] [place] [id number] [address] [place] [address] Nov, [facility] [address] [address] Nov, Chronic pain G89.29 [facility] [address] [place] [address] Nov, Bipolar disorder, in partial remission, most recent episode depressed F31.75 and Mild cognitive impairment G31.84 [facility] [address] [place] [id number] [address] [place] [address] 18 Nov, 2018 Bipolar disorder F31.9 [facility] [id number] [place] [address] 04 Nov, 2018 Encounter for Medicare ann [...] unspecified morphology N40.1 and Essential hypertension I10 [facility] [address] [place] [id number] [address] [place] [address] Oct, Chronic pain G89.29 [facility] [place] [address] [facility] [id number] [address] [place] [address] 18 Oct, 2018 Diabetes E11.9 [facility] [address] [facility] [id number] [address] [place] [address] Oct, Bipolar I disorder, most rec ent episode (or current) mixed, moderate F31.62 and Mild cognitive impairment G31.84 [facility] [place] [address] [facility] [id number] [address] [place] [address] Oct, Bipolar I disorder, most rec ent episode (or current) mixed, moderate F31.62 and Mild cognitive impairment G31.84 [facility] [address] [place] [id number] [address] [place] [address] Sep, Bipolar I disorder, most rec ent episode (or current) mixed, moderate F31.62 and Mild cognitive impairment G31.84 [facility] [address] [place] [id number] [address] [place] [address] Sep, [place] [id number] [place] [address] Sep, Diabetes E11.9 ; Hypoxia R09 .02 ; Hyperglycemia R73.9 ; Therapeutic drug monitoring Z51.81 ; BMI 50.0-59.9, adult Z68.43 and Skin cancer C44.90 [facility] [address] [facility] [id number] [address] [place] [address] Sep, Chronic pain G89.29 [facility] [place] [address] [facility] [id number] [address] [place] [address] Sep, Bipolar I disorder, most rec ent episode (or current) mixed, moderate F31.62 [facility] [address] [facility] [id number] [address] [place] [address] Sep, [facility] [address] [place] [id number] [address] [place] [address] Sep, [facility] [address] [id number] [address] [place] [address] Aug, Chronic pain G89.29 [facility] [address] [id number] [address] [place], [place] [address] Aug, Bipolar I disorder, most rec ent episode (or current) mixed, moderate F31.62 [facility] [address] [id number] [address] [place] [address] Aug, Bipolar I disorder, most rec ent episode (or current) mixed, moderate F31.62 and Mild cognitive impairment G31.84 [facility] [address] [id number] [address] [place] [address] Jul, [facility] [address] [facility] [id number] [address] [place] [address] Jul, Chronic pain G89.29 [facility] [address] [id number] [address] [place] [address] Jul, Bipolar I disorder, most rec ent episode (or current) mixed, moderate F31.62 and Mild cognitive impairment G31.84 [facility] [address] [facility] [id number] [address] [place] [address] Jul, Bipolar I disorder, most rec ent episode (or current) mixed, moderate F31.62 and MCI (mild cognitive impairment) G31.84 [facility] [address] [id number] [address] [place] [address] Jul, [facility] [address] [id number] [address] [place] [address] Jul, [facility] [address] [facility] [id number] [address] [place] [address] Jul, Bipolar I disorder, most rec ent episode (or current) mixed, moderate F31.62 [facility] [address] [facility] [id number] [address] [place] [address] Jul, Chronic pain G89.29 [facility] [address] [id number] [address] [place] [phone] Jun, Bipolar I disorder, most rec ent episode (or current) mixed, moderate F31.62 [facility] [address] [id number] [address] [place] [address] Jun, Pre-procedure lab exam Z01.8 12 [facility] [address] [id number] [address] [place] [id number] Jun, [facility] [address] [id number] [place] [id number] Jun, [facility] [address] [id number] [address] [place] [address] Jun, [facility] [address] [id number] [address] [place] [address] Jun, Forgetfulness R68.89 ; Pre-s yncope R55 ; Localized edema R60.0 ; Other iron deficiency anemia D50.8 and BMI 50.0-59.9, adult Z68.43 [facility] [address] [id number] [address] [place] [address] Jun, Chronic pain G89.29 [facility] [address] [id number] [address] [place] [address] Jun, Chronic pain G89.29 [facility] [address] [facility] [id number] [address] [place] [address] Jun, Bipolar I disorder, most rec ent episode (or current) mixed, moderate F31.62 [facility] [address] [id number] [address] [place] [address] May, Chronic pain G89.29 [facility] [address] [id number] [address] [place] [address] Apr, [facility] [address] [id number] [address] [place] [address] 10 Aug, 2018 Chronic pain G89.29 [facility] [address] [place] [id number] [address] [place] [address] Apr, Primary osteoarthritis of ri ght knee M17.11 [facility] [address] [facility] [id number] [address] [place] [address] Mar, [facility] [address] [place] [id number] [address] [place] [address] Mar, BMI 50.0-59.9, adult Z68.43 and Bipolar disorder, in partial remission, most recent episode depressed F31.75 [facility] [address] [place] [id number] [address] [place] [address] Mar, Diabetes E11.9 ; Pure hyperc holesterolemia E78.00 ; Essential hypertension I10 ; Nausea with vomiting, unspecified R11.2 and Headache, unspecified headache type R51 [facility] [address] [place] [id number] [address] [place] [address] Mar, Bipolar I disorder, most rec ent episode (or current) mixed, moderate F31.62 [facility] [address] [place] [id number] [address] [place] [address] Mar, Bipolar I disorder, most rec ent episode (or current) mixed, moderate F31.62 [facility] [address] [place] [id number] [address] [place] [address] Mar, Chronic pain G89.29 [facility] [address] [place] [id number] [address] [place] [address] Mar, Bipolar I disorder, most rec ent episode (or current) mixed, moderate F31.62 [facility] [address] [place] [id number] [address] [place] [address] Feb, Bipolar I disorder, most rec ent episode (or current) mixed, moderate F31.62 [place] [address] [place] [id number] [address] [place] [address] Feb, Chronic pain G89.29 [facility] [place] [address] [place] [id number] [address] [place] [address] Feb, Decubitus ulcer of right josselin t, stage 3 L89.893 and BMI 50.0-59.9, adult Z68.43 [facility] [address] [facility] [id number] [address] [place] [address] Feb, Bipolar I disorder, most rec ent episode (or current) mixed, moderate F31.62 [facility] [address] [facility] [id number] [address] [place] [phone] Feb, [facility] [address] [facility] [id number] [address] [place] [address] January, [place] [address] [facility] [id number] [address] [place] [address] January, Chronic pain G89.29 [facility] [address] [facility] [id number] [address] [place] [address] January, Bipolar I disorder, most rec ent episode (or current) mixed, moderate F31.62 [facility] [address] [facility] [id number] [address] [place] [address] January, Bipolar I disorder, most rec ent episode (or current) mixed, moderate F31.62 [place] [address] [facility] [id number] [address] [place] [address] Dec, Bipolar I disorder, most rec ent episode (or current) mixed, moderate F31.62 and BMI 50.0-59.9, adult Z68.43 [facility] [address] [facility] [id number] [address] [place] [address] Dec, Bipolar I disorder, most rec ent episode (or current) mixed, moderate F31.62 [facility] [address] [facility] [id number] [address] [place] [address] Dec, Chronic pain G89.29 [facility] [address] [facility] [id number] [address] [place] [address] 18 Apr, 2018 DM neuro manif type II E11.4 9 ; Right flank pain R10.9 ; correction 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 Z79.891 ; Encounter for medication monitoring Z51.81 and BMI 50.0-59.9, adult Z68.43 [facility] [address] [place] [id number] [address] [place] [id number] 04 Dec, 2017 Bipolar I disorder, most rec ent episode (or current) mixed, moderate F31.62 [facility] [address] [place] [id number] [address] [place] [phone] Nov, Bipolar I disorder, most rec ent episode (or current) mixed, moderate F31.62 [facility] [place] [address] [place] [id number] [address] [place] [address] Nov, Chronic pain G89.29 [facility] [place] [address] [place] [id number] [address] [place] [address] Nov, Bipolar I disorder, most rec ent episode (or current) mixed, moderate F31.62 [facility] [place] [address] [place] [id number] [address] [place] [address] Nov, Hypokalemia E87.6 [facility] [address] [place] [id number] [address] [place] [address] Nov, Bipolar I disorder, most rec ent episode (or current) mixed, moderate F31.62 [facility] [place] [address] [place] [id number] [address] [place] [address] Oct, Chronic pain G89.29 [facility] [place] [address] [place] [id number] [address] [place] [address] Oct, BMI 50.0-59.9, adult Z68.43 and Bipolar I disorder, most recent episode (or current) mixed, moderate F31.62 [place] [address] [place] [id number] [address] [place] [address] Oct, Bipolar I disorder, most rec ent episode (or current) mixed, moderate F31.62 [place] [address] [place] [id number] [place] [address] Oct, [facility] [address] [facility] [id number] [address] [place] [address] Oct, Hypokalemia E87.6 [facility] [address] [place] [id number] [address] [place] [address] Oct, DM neuro manif type II E11.4 9 [facility] [address] [place] [id number] [address] [place] [address] Oct, Bipolar I disorder, most rec ent episode (or current) mixed, moderate F31.62 [place] [address] [place] [id number] [place] [address] 20 Oct, 2017 Bipolar I disorder, most rec ent episode (or current) mixed, moderate F31.62 [place] [address] [address] 14 Oct, 2017 Hyperkalemia E87.5 ; Falling R29.6 ; BMI 50.0-59.9, adult Z68.43 and Acute left ankle pain M25.572 [place] [address] [address] Oct, DM neuro manif type II E11.4 9 [facility] [address] [place] [id number] [address] [place] [address] Oct, [facility] [address] [address] Sep, Chronic pain G89.29 [facility] [address] [place] [id number] [address] [place] [address] Sep, [place] [address] [address] Sep, Bilateral primary osteoarthr itis of knee M17.0 [facility] [address] [place] [id number] [address] [place] [address] Sep, Generalized edema R60.1 [facility] [address] [facility] [id number] [address] [place] [address] 16 Sep, 2017 Bipolar I disorder, most rec ent episode (or current) mixed, moderate F31.62 [facility] [address] [facility] [id number] [address] [place] [address] 15 Sep, 2017 Hypoxia R09.02 ; Other hyper volemia E87.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 ; Anemia of chronic illness D63.8 and BMI 50.0- 59.9, adult Z68.43 [place] [address] [facility] [id number] [address] [place] [address] 03 Sep, 2017 [place] [address] [place] [id number] [address] [place] [address] Sep, Bipolar I disorder, most rec ent episode (or current) mixed, moderate F31.62 [place] [address] [facility] [id number] [address] [place] [address] Aug, Chronic pain G89.29 [place] [address] [facility] [id number] [address] [place] [address] Aug, Generalized edema R60.1 [facility] [address] [facility] [id number] [address] [place] [address] 18 Aug, 2017 [facility] [address] [facility] [id number] [address] [place] [address] Aug, [facility] [address] [facility] [id number] [address] [place] [address] 14 Aug, 2017 Bipolar I disorder, most rec ent episode (or current) mixed, moderate F31.62 [facility] [address] [facility] [id number] [address] [place] [phone] 07 Aug, 2017 Bipolar I disorder, most rec ent episode (or current) mixed, moderate F31.62 [place] [address] [place] [id number] [address] [place] [address] Aug, Chronic pain G89.29 [facility] [address] [facility] [id number] [address] [place] [address] Jul, Bipolar I disorder, most rec ent episode (or current) mixed, moderate F31.62 [facility] [address] [place] [id number] [address] [place] [address] Jul, Bipolar I disorder, most rec ent episode (or current) mixed, moderate F31.62 and BMI 60.0-69.9, adult Z68.44 [place] [address] [facility] [id number] [address] [place] [address] Jul, Bipolar I disorder, most rec ent episode (or current) mixed, moderate F31.62 [place] [address] [place] [id number] [address] [place] [address] Jul, Chronic pain G89.29 [place] [address] [place] [id number] [address] [place] [address] Jul, Bipolar I disorder, most rec ent episode (or current) mixed, moderate F31.62 [place] [address] [place] [id number] [address] [place] [address] Jun, Polyneuropathy associated wi th underlying disease G63 and Diabetes E11.9 [place] [address] [facility] [id number] [address] [place] [address] Jun, Bipolar I disorder, most rec ent episode (or current) mixed, moderate F31.62 [place] [address] [place] [id number] [address] [place] [address] Jun, Chronic pain G89.29 [place] [address] [place] [id number] [address] [place] [address] May, Bipolar I disorder, most rec ent episode (or current) mixed, moderate F31.62 [place] [address] [place] [id number] [address] [place] [address] May, Bipolar I disorder, most rec ent episode (or current) mixed, moderate F31.62 [facility] [address] [id number] [address] [place] [address] 20 May, 2017 Diabetic polyneuropathy asso ciated with type 2 diabetes mellitus E11.42 [facility] [address] [id number] [address] [place] [address] 18 May, 2017 Bipolar I disorder, most rec ent episode (or current) mixed, moderate F31.62 [facility] [address] [id number] [address] [place] [address] 13 May, 2017 Bipolar I disorder, most rec ent episode (or current) mixed, moderate F31.62 [facility] [address] [id number] [address] [place] [address] 12 May, 2017 Chronic pain G89.29 [facility] [address] [id number] [address] [place] [address] Apr, Bipolar I disorder, most rec ent episode (or current) mixed, moderate F31.62 [facility] [address] [id number] [address] [place] [address] Apr, [facility] [address] [id number] [address] [place] [address] Apr, Chronic pain G89.29 and DM n euro manif type II E11.49 [facility] [address] [id number] [address] [place] [address] Apr, [facility] [address] [id number] [address] [place] [phone] Apr, Bipolar I disorder, most rec ent episode (or current) mixed, moderate F31.62 [facility] [address] [id number] [address] [place] [id number] Apr, Chronic pain G89.29 [facility] [address] [id number] [address] [place] [phone] Apr, Iliotibial band syndrome, le ft M76.32 [facility] [address] [facility] [id number] [address] [place] [id number] Apr, Bipolar I disorder, most rec ent episode (or current) mixed, moderate F31.62 [facility] [address] [facility] [id number] [address] [place] [phone] Mar, Bipolar I disorder, most rec ent episode (or current) mixed, moderate F31.62 [facility] [address] [facility] [id number] [address] [place] [id number] Mar, Bipolar I disorder, most rec ent episode (or current) mixed, moderate F31.62 [facility] [address] [facility] [id number] [address] [place] [address] [address] Mar, [facility] [address] [id number] [address] [place] [address] Mar, Bipolar I disorder, most rec ent episode (or current) mixed, moderate F31.62 [facility] [address] [facility] [id number] [address] [place] [address] Mar, Chronic pain G89.29 [facility] [address] [facility] [id number] [address] [place] [address] Mar, Bipolar I disorder, most rec ent episode (or current) mixed, moderate F31.62 [facility] [address] [facility] [id number] [address] [place] [address] Mar, Bipolar I disorder, most rec ent episode (or current) mixed, moderate F31.62 [facility] [address] [facility] [id number] [address] [place] [address] Mar, Acute pain of left knee M25. 562 ; Left hip pain M25.552 ; Generalized edema R60.1 and Tongue swelling R22.0 [facility] [address] [facility] [id number] [address] [place] [address] Mar, [facility] [address] [id number] [address] [place] [address] Feb, Chronic pain G89.29 [facility] [address] [id number] [address] [place] [address] Feb, Diabetes E11.9 [facility] [address] [id number] [address] [place] [address] January, Chronic pain G89.29 [facility] [address] [id number] [address] [place] [id number] January, [facility] [address] [id number] [address] [place] [address] January, Bipolar I disorder, most rec ent episode (or current) mixed, moderate F31.62 [facility] [address] [id number] [address] [place] [phone] Dec, Bipolar I disorder, most rec ent episode (or current) mixed, moderate F31.62 [place] [id number] [facility] [id number] [address] [place] [address] Dec, Chronic pain G89.29 [facility] [address] [id number] [address] [place] [address] Dec, Bipolar I disorder, most rec ent episode (or current) mixed, moderate F31.62 [facility] [address] [facility] [id number] [address] [place] [address] Dec, Diabetes E11.9 ; Essential h ypertension I10 ; Chronic pain G89.29 and Morbid obesity E66.01 [facility] [address] [id number] [address] [place] [address] Dec, [facility] [address] [facility] [id number] [address] [place] [id number] Dec, Bipolar I disorder, most rec ent episode (or current) mixed, moderate F31.62 [facility] [address] [facility] [id number] [address] [place] [address] Dec, Bipolar I disorder, most rec ent episode (or current) mixed, moderate F31.62 [facility] [address] [id number] [address] [place] [address] Nov, Chronic pain G89.29 [facility] [address] [id number] [address] [place] [id number] Nov, Bipolar I disorder, most rec ent episode (or current) mixed, moderate F31.62 [facility] [address] [id number] [address] [place] [id number] Nov, [facility] [address] [id number] [address] [place] [id number] Nov, Bipolar I disorder, most rec ent episode (or current) mixed, moderate F31.62 [facility] [address] [facility] [id number] [address] [place] [id number] Nov, Bipolar I disorder, most rec ent episode (or current) mixed, moderate F31.62 [facility] [address] [facility] [id number] [address] [place] [address] Nov, [facility] [address] [facility] [id number] [address] [place] [id number] Nov, [facility] [address] [facility] [id number] [address] [place] [address] Nov, [facility] [address] [facility] [id number] [address] [place] [address] Oct, Chronic pain G89.29 [facility] [address] [facility] [id number] [address] [place] [id number] Oct, Bipolar I disorder, most rec ent episode (or current) mixed, moderate F31.62 [facility] [address] [id number] [address] [place] [id number] Oct, [facility] [address] [facility] [id number] [address] [place] [address] Oct, Chronic pain G89.29 ; Diabet es E11.9 ; Anxiety F41.9 and 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 [facility] [address] [id number] [address] [place] [address] Oct, [facility] [address] [facility] [id number] [address] [place] [address] Oct, Diabetes E11.9 [facility] [address] [id number] [address] [place] [id number] Oct, Bipolar I disorder, most rec ent episode (or current) mixed, moderate F31.62 [facility] [address] [id number] [address] [place] [address] Sep, Chronic pain G89.29 [facility] [address] [facility] [id number] [address] [place] [address] Sep, Chronic pain G89.29 [facility] [address] [facility] [id number] [address] [place] [address] Aug, Chronic pain G89.29 [facility] [address] [id number] [address] [place] [id number] Jul, [facility] [address] [facility] [id number] [address] [place] [address] Jul, Diabetes E11.9 [facility] [address] [facility] [id number] [address] [place] [id number] Jul, Chronic pain G89.29 [facility] [address] [facility] [id number] [address] [place] [id number] Jul, Bipolar I disorder, most rec ent episode (or current) mixed, moderate F31.62 [facility] [address] [facility] [id number] [address] [place] [address] Jun, Bipolar I disorder, most rec ent episode (or current) mixed, moderate F31.62 [facility] [address] [facility] [id number] [address] [place] [id number] Jun, [facility] [address] [facility] [id number] [address] [place] [id number] Jun, Bipolar I disorder, most rec ent episode (or current) mixed, moderate F31.62 [facility] [address] [facility] [id number] [address] [place] [id number] 30 May, 2016 Insomnia, unspecified type G 47.00 [place] [address] [facility] [id number] [address] [place] [address] May, Bipolar I disorder, most rec ent episode (or current) mixed, moderate F31.62 [place] [address] [facility] [id number] [address] [place] [id number] 14 May, 2016 [place] [address] [place] [id number] [address] [place] [id number] May, Bipolar I disorder, most rec ent episode (or current) mixed, moderate F31.62 [place] [address] [id number] [address] [place] [address] May, Diabetes E11.9 and Essential hypertension I10 [place] [address] [facility] [id number] [address] [place] [address] Apr, Chronic pain G89.29 [place] [address] [id number] [address] [place] [address] Apr, Bipolar I disorder, most rec ent episode (or current) mixed, moderate F31.62 [place] [address] [id number] [address] [place] [address] Apr, [place] [address] [place] [id number] [address] [place] [address] Apr, [place] [address] [id number] [address] [place] [address] Mar, Chronic pain G89.29 ; Headac he, unspecified headache type R51 ; Neuropathy G62.9 ; Pain of right hip joint M25.551 and Essential hypertension I10 [place] [address] [id number] [address] [place] [address] Mar, Chronic pain G89.29 [facility] [address] [id number] [address] [place] [address] Mar, Bipolar I disorder, most rec ent episode (or current) mixed, moderate F31.62 [facility] [address] [facility] [id number] [address] [place] [id number] Feb, Bipolar I disorder, most rec ent episode (or current) mixed, moderate F31.62 and Insomnia, unspecified type G47.00 [facility] [address] [id number] [address] [place] [id number] Feb, Chronic pain G89.29 [facility] [address] [facility] [id number] [address] [place] [address] Feb, Bipolar I disorder, most rec ent episode (or current) mixed, moderate F31.62 [facility] [address] [facility] [id number] [address] [place] [address] January, Bipolar I disorder, most rec ent episode (or current) mixed, moderate F31.62 [facility] [address] [facility] [id number] [address] [place] [address] January, Chronic pain G89.29 [facility] [address] [facility] [id number] [address] [place] [address] January, Chronic pain G89.29 and Esse ntial hypertension I10 [facility] [address] [id number] [address] [place] [address] January, Bipolar I disorder, most rec ent episode (or current) mixed, moderate F31.62 [facility] [address] [facility] [id number] [address] [place] [address] Dec, [facility] [address] [facility] [id number] [address] [place] [id number] Dec, [facility] [address] [facility] [id number] [address] [place] [phone] Dec, [facility] [address] [facility] [id number] [address] [place] [address] Dec, [facility] [address] [facility] [id number] [address] [place] [address] Nov, Reactive airway disease J45. 909 [facility] [address] [id number] [address] [place] [phone] Nov, [facility] [id number] [place] [address] Nov, [facility] [address] [facility] [id number] [address] [place] [phone] Nov, [facility] [id number] [place] [address] Nov, [facility] [address] [address] Nov, Onychomycosis B35.1 ; Hammer toe M20.40 ; [place] or callus L84 and DM neuro manif type II E11.49 [facility] [address] [address] Nov, Chronic pain G89.29 ; Leukoc ytosis D72.829 and Diabetes E11.9 [facility] [address] [id number] [address] [place] [address] Nov, [facility] [id number] [address] [place] [address] Oct, Bronchitis J40 [facility] [address] [facility] [id number] [address] [place] [id number] Oct, [facility] [id number] [address] [place] [address] Oct, [facility] [id number] [address] [place] [address] Oct, Mastoiditis, unspecified lat erality H70.90 and Type 2 diabetes mellitus with complication E11.8 [facility] [address] [facility] [id number] [address] [place] [address] Sep, [facility] [id number] [address] [place] [address] Sep, Dysuria R30.0 ; Cough R05 ; Benign prostatic hyperplasia with lower urinary tract symptoms, unspecified morphology N40.1 ; Hypokalemia E87.6 and Eustachian tube dysfunction, unspecified laterality H69.80 [facility] [id number] [address] [place] [address] Sep, Moderate mixed bipolar I dis order F31.62 [facility] [address] [id number] [address] [place] [address] Sep, Hypokalemia E87.6 [place] [address] [id number] [place] [address] Sep, [facility] [id number] [address] [place] [address] Sep, Upper respiratory tract infe ction, unspecified type J06.9 [facility] [address] [place] [id number] [place] [address] Aug, [facility] [id number] [place] [id number] Aug, Dysuria R30.0 [facility] [id number] [address] [place] [address] Aug, [facility] [id number] [place] [address] Jul, [facility] [address] [id number] [place] [id number] Jul, [facility] [id number] [place] [address] Jul, [facility] [address] [place] [id number] [place] [address] Jul, [facility] [address] [facility] [id number] [address] [place] [phone] Jun, [facility] [id number] [address] [place] [phone] Jun, [facility] [id number] [place] [address] Jun, [facility] [id number] [place] [address] May, [facility] [id number] [place] [address] May, Bipolar I disorder, most rec ent episode (or current) mixed, moderate 296.62 [facility] [id number] [place] [address] May, [facility] [id number] [place] [id number] May, Bipolar I disorder, most rec ent episode (or current) mixed, moderate 296.62 and Major depressive disorder, recurrent episode, severe, specified as with psychotic behavior 296.34 [facility] [id number] [place] [address] May, Bipolar I disorder, most rec ent episode (or current) mixed, moderate 296.62 [facility] [id number] [place] [address] May, [facility] [id number] [place] [address] Apr, [facility] [id number] [place] [address] Apr, [facility] [id number] [place] [address] Apr, Unspecified disorder of kidn ey and ureter 593.9 and Diabetes mellitus type 2, uncontrolled 250.02 [facility] [address] [facility] [id number] [address] [place] [address] Apr, [facility] [address] [facility] [id number] [address] [place] [address] Apr, [facility] [address] [facility] [id number] [address] [place] [address] Apr, [facility] [id number] [address] [place] [address] Apr, [facility] [address] [facility] [id number] [address] [place] [address] Apr, Diabetes mellitus type II, u ncontrolled 250.02 [facility] [address] [facility] [id number] [address] [place] [address] Apr, [facility] [address] [address] Mar, [facility] [address] [id number] [address] [place] [address] Mar, [facility] [address] [facility] [id number] [address] [place] [address] Mar, [facility] [id number] [address] [place] [address] Mar, Major depressive disorder, r ecurrent episode, severe, specified as with psychotic behavior 296.34 and Bipolar I disorder, most recent episode (or current) mixed, moderate 296.62 [facility] [address] [id number] [address] [place] [address] Mar, Diabetes 250.00 ; Anuria 788 .5 ; Nausea and vomiting 787.01 and Diarrhea 787.91 [facility] [address] [id number] [address] [place] [address] Mar, Diabetes 250.00 [facility] [address] [id number] [address] [place] [address] Mar, [facility] [address] [id number] [address] [place] [address] Mar, Diabetes 250.00 [facility] [address] [address] Mar, [facility] [address] [address] Mar, [facility] [address] [address] Mar, [facility] [address] [address] Mar, [place] [address] [address] Mar, Bipolar I disorder, most rec ent episode (or current) mixed, moderate 296.62 and Major depressive disorder, recurrent episode, severe, specified as with psychotic behavior 296.[address] [address] Mar, Magnesium deficiency 275.2 ; Hypokalemia 276.8 ; Nausea & vomiting 787.01 and Diabetes mellitus type 2, uncontrolled 250.[address] [address] Feb, [address] [address] Feb, Bipolar I disorder, most rec ent episode (or current) mixed, moderate 296.62 [place] [address] [address] Feb, Nausea and vomiting 787.01 ; Left elbow pain 719.42 ; Anuria 788.5 and Diabetes 250.00 [facility] [address] [place] [id number] [address] [place] [address] Feb, [facility] [address] [address] Feb, Hypopotassemia 276.8 and Hyp okalemia 276.8 [facility] [address] [id number] [address] [place] [address] Feb, Hypopotassemia 276.8 and Hyp okalemia 276.8 [facility] [address] [id number] [address] [place] [address] Feb, Seborrheic keratoses 702.19 [facility] [address] [facility] [id number] [address] [place] [address] Feb, Hypopotassemia 276.8 and Low magnesium levels 275.2 [facility] [address] [id number] [address] [place] [address] January, [facility] [address] [facility] [id number] [address] [place] [address] January, [facility] [address] [facility] [id number] [address] [place] [address] January, [facility] [address] [facility] [id number] [address] [place] [phone] January, Scalp lesion 709.9 [facility] [address] [facility] [id number] [address] [place] [address] January, [facility] [address] [facility] [id number] [address] [place] [id number] Dec, Tear of medial cartilage or meniscus of knee, current 836.0 and 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 [facility] [address] [facility] [id number] [address] [place] [address] Dec, [facility] [address] [id number] [address] [place] [address] Dec, [facility] [address] [facility] [id number] [address] [place] [address] Dec, Squamous cell carcinoma, 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 [facility] [address] [facility] [id number] [address] [place] [address] 14 Dec, 2014 [facility] [address] [id number] [address] [place] [address], [place] [address] 13 Dec, 2014 [facility] [address] [id number] [address] [place] [address], [place] [address] Nov, [facility] [address] [id number] [address] [place] [address], [place] [address] Nov, [facility] [address] [id number] [address] [place] [address], [place] [address] Nov, [facility] [address] [id number] [address] [place] [address], [place] [address] Nov, [facility] [address] [id number] [address] [place] [address], [place] [address] Nov, [facility] [address] [id number] [address] [place] [address], [place] [address] Nov, [facility] [address] [id number] [address] [place] [address], [place] [id number] Nov, [facility] [address] [id number] [address] [place] [address], [place] [id number] Nov, [facility] [address] [id number] [address] [place] [address], [place] [id number] Nov, [facility] [address] [id number] [address] [place] [address], [place] [id number] Nov, [facility] [address] [id number] [address] [place] [address], [place] [id number] Nov, [facility] [address] [id number] [address] [place] [address], [place] [id number] Nov, [facility] [address] [id number] [address] [place] [address], [place] [id number] Oct, [facility] [address] [id number] [address] [place] [address], [place] [id number] Oct, [facility] [address] [id number] [address] [place] [address], [place] [id number] Oct, 2014 [facility] [address] [id number] [address] [place] [address], [place] [id number] Oct, 2014 [facility] [address] [id number] [address] [place] [address], [place] [id number] Oct, 2014 [facility] [address] [id number] [address] [place] [address], [place] [id number] Oct, 2014 [facility] [address] [id number] [address] [place] [address], [place] [id number] Oct, 2014 [facility] [address] [id number] [address] [place] [address], [place] [id number] Oct, 2014 [facility] [address] [id number] [address] [place] [address], [place] [id number] Oct, [facility] [address] [id number] [address] [place] [address], [place] [id number] Sep, [facility] [address] [id number] [address] [place] [address], [place] [address] Sep, [facility] [address] [id number] [address] [place] [address], [place] [id number] Sep, [facility] [address] [id number] [address] [place], [place] [address], [place] [address] Sep, [facility] [address] [id number] [address] [place] [address], [place] [address] Sep, [facility] [address] [id number] [address] [place] [address] Sep, [facility] [address] [id number] [address] [place] [address], [place] [address] Sep, [facility] [address] [id number] [address] [place] [address], [place] [address] Sep, [facility] [address] [id number] [address] [place] [address] Sep, [facility] [address] [id number] [address] [place] [address], [place] [address] 14 Sep, 2014 [facility] [address] [id number] [address] [place] [address], [place] [address] Sep, [facility] [address] [id number] [address] [place] [address], [place] [address] Sep, [facility] [address] [id number] [address] [place] [address], [place] [address] Sep, [facility] [address] [id number] [address] [place] [address], [place] [address] Sep, [facility] [address] [id number] [address] [place] [address], [place] [address] Sep, [facility] [address] [id number] [address] [place] [address], [place] [address] Sep, [facility] [address] [id number] [address] [place] [address], [place] [address] Aug, [facility] [address] [id number] [address] [place] [address], [place] [address] Aug, [facility] [address] [id number] [address] [place] [address], [place] [address] Aug, [facility] [address] [id number] [address] [place] [address], [place] [address] 31 Aug, 2014 [facility] [address] [id number] [address] [place] [address], [place] [address] 31 Aug, 2014 [facility] [address] [id number] [address] [place] [address], [place] [address] 31 Aug, 2014 [facility] [address] [id number] [address] [place] [address], [place] [address] 17 Aug, 2014 [facility] [address] [id number] [address] [place] [address], [place] [address] 17 Aug, 2014 [facility] [address] [id number] [address] [place] [address], [place] [address] Aug, [facility] [address] [id number] [facility] [place] [address] Aug, [facility] [address] [id number] [address] [place] [address], [place] [address] Aug, [facility] [place] [address] [place] [id number] Aug, [facility] [address] [id number] [address] [place] [address], [place] [address] Aug, [facility] [address] [id number] [address] [place] [address], [place] [address] Aug, [facility] [address] [id number] [address] [place] [address], [place] [address] Aug, [facility] [address] [id number] [address] [place] [address], [place] [address] Aug, [facility] [address] [id number] [address] [place] [address], [place] [address] Aug, [facility] [address] [id number] [address] [place] [address], [place] [address] Aug, [facility] [address] [id number] [address] [place] [address], [place] [address] Aug, [facility] [address] [id number] [address] [place] [address], [place] [address] Aug, [facility] [address] [id number] [address] [place] [address], [place] [address] Aug, [facility] [address] [id number] [address] [place] [address], [place] [address] Aug, [facility] [address] [id number] [address] [place] [address], [place] [address] Aug, [facility] [address] [id number] [address] [place] [address], [place] [address] Aug, [facility] [address] [id number] [address] [place] [address], [place] [address] Aug, [facility] [address] [id number] [address] [place] [address], [place] [address] Aug, [facility] [address] [id number] [address] [place] [address], [place] [address] Aug, [facility] [address] [id number] [address] [place] [address], [place] [address] Aug, [facility] [address] [id number] [address] [place] [address], [place] [address] Aug, [facility] [address] [id number] [address] [place] [address], [place] [address] Aug, [facility] [address] [id number] [address] [place] [address], [place] [address] Jul, [facility] [address] [id number] [address] [place] [address], [place] [address] Jul, [facility] [address] [id number] [address] [place] [address], [place] [address] Jul, [facility] [address] [id number] [address] [place] [address], [place] [address] Jul, [facility] [address] [id number] [address] [place] [address], [place] [address] Jul, [facility] [address] [id number] [address] [place] [address], [place] [address] Jul, [facility] [address] [id number] [address] [place] [address], [place] [address] Jul, [facility] [address] [id number] [address] [place] [address], [place] [address] Jul, [facility] [address] [id number] [address] [place] [address], [place] [address] Jul, [facility] [address] [id number] [address] [place] [address], [place] [address] Jul, [facility] [address] [id number] [address] [place] [address], [place] [address] Jun, [facility] [address] [id number] [address] [place] [address], [place] [address] Jun, [facility] [address] [id number] [address] [place] [address], [place] [address] Jun, [facility] [address] [id number] [address] [place] [address], [place] [address] Jun, [facility] [address] [id number] [address] [place] [address], [place] [address] Jun, [facility] [address] [id number] [address] [place] [address], [place] [address] Jun, [facility] [address] [id number] [address] [place] [address], [place] [address] Jun, [facility] [address] [id number] [address] [place] [address], [place] [address] Jun, [facility] [address] [id number] [address] [place] [address], [place] [address] Jun, [facility] [address] [id number] [address] [place] [address], [place] [address] Jun, [facility] [address] [id number] [address] [place] [address], [place] [address] 29 May, 2014 [facility] [address] [id number] [address] [place] [address], [place] [address] 29 May, 2013 [facility] [address] [id number] [address] [place] [address], [place] [address] 26 May, 2014 [facility] [address] [id number] [address] [place] [address], [place] [address] 26 May, 2013 [facility] [address] [id number] [address] [place] [address], [place] [address] 17 May, 2013 [facility] [address] [id number] [address] [place] [address], [place] [address] 17 May, 2013 [facility] [address] [id number] [facility] [place] [address] 15 May, 2013 [facility] [address] [id number] [address] [place] [address], [place] [address] 15 May, 2013 [facility] [address] [id number] [address] [place] [address], [place] [address] 15 May, 2013 [facility] [address] [id number] [address] [place] [address], [place] [address] 15 May, 2013 [facility] [address] [id number] [address] [place] [address], [place] [address] 10 May, 2013 [facility] [address] [id number] [address] [place] [address], [place] [address] 10 May, 2013 [facility] [address] [id number] [address] [place] [address], [place] [address] 09 May, 2013 [facility] [address] [id number] [address] [place] [address], [place] [address] 09 May, 2013 [facility] [address] [id number] [address] [place] [address], [place] [address] 04 May, 2013 [facility] [address] [id number] [address] [place] [address], [place] [address] 04 May, 2013 [facility] [address] [id number] [address] [place] [address], [place] [address] Apr, [facility] [address] [id number] [address] [place] [address], [place] [address] Apr, [facility] [address] [id number] [address] [place] [address], [place] [address] Apr, [facility] [address] [id number] [address] [place] [address], [place] [address] Apr, [facility] [address] [id number] [address] [place] [address], [place] [address] Apr, [facility] [address] [id number] [facility] [place] [address] Apr, [facility] [address] [id number] [facility] [place] [address] Apr, [facility] [address] [id number] [facility] [place] [address] Apr, [facility] [address] [id number] [address] [place] [address], [place] [address] Apr, [facility] [address] [id number] [address] [place] [address], [place] [address] Apr, [facility] [address] [id number] [address] [place] [address], [place] [address] Apr, [facility] [address] [id number] [address] [place] [address], [place] [address] Apr, [facility] [address] [id number] [address] [place] [address], [place] [address] Apr, [facility] [address] [id number] [address] [place] [address], [place] [address] Apr, [facility] [address] [id number] [address] [place] [address], [place] [address] Apr, [facility] [address] [id number] [address] [place] [address], [place] [address] Mar, [facility] [address] [id number] [address] [place] [address], [place] [address] Mar, [facility] [address] [id number] [address] [place] [address], [place] [address] Mar, [facility] [address] [id number] [address] [place] [address], [place] [address] Mar, [facility] [address] [id number] [address] [place] [address], [place] [address] Mar, [facility] [address] [id number] [address] [place] [address], [place] [address] Mar, [facility] [address] [id number] [address] [place] [address], [place] [address] Mar, 2013 [facility] [address] [id number] [address] [place] [address], [place] [address] Mar, 2013 [facility] [address] [id number] [address] [place] [address], [place] [address] Mar, 2013 [facility] [address] [id number] [address] [place] [address], [place] [address] Mar, 2013 [facility] [address] [id number] [address] [place] [address], [place] [address] Mar, 2013 [facility] [address] [id number] [address] [place] [address], [place] [address] Mar, 2013 [facility] [address] [id number] [address] [place] [address], [place] [address] Mar, 2013 [facility] [address] [id number] [address] [place] [address], [place] [address] Mar, 2013 [facility] [address] [id number] [address] [place] [address], [place] [address] Mar, 2013 [facility] [address] [id number] [address] [place] [address], [place] [address] Mar, 2013 [facility] [address] [id number] [address] [place] [address], [place] [address] Mar, 2013 [facility] [address] [id number] [address] [place] [address], [place] [address] Mar, [facility] [address] [id number] [address] [place] [address], [place] [address] Feb, [facility] [address] [id number] [address] [place] [address], [place] [address] Feb, [facility] [address] [id number] [address] [place] [address], [place] [address] Feb, [facility] [address] [id number] [address] [place] [address] 16 Feb, 2014 [facility] [address] [id number] [facility] [place] [address] Feb, [facility] [address] [id number] [facility] [place] [address] Feb, [facility] [address] [id number] [facility] [place] [address] Feb, [facility] [address] [id number] [address] [place] [address], [place] [address] Feb, [facility] [address] [id number] [address] [place] [address], [place] [address] Feb, [facility] [address] [id number] [address] [place] [address], [place] [address] Feb, [facility] [address] [id number] [address] [place] [address], [place] [address] Feb, [facility] [address] [id number] [address] [place] [address], [place] [address] Feb, [facility] [address] [id number] [address] [place] [address], [place] [address] Feb, [facility] [address] [id number] [address] [place] [address], [place] [address] Feb, [facility] [address] [id number] [address] [place] [address], [place] [address] January, [facility] [address] [id number] [address] [place] [address], [place] [address] January, [facility] [address] [id number] [address] [place] [address], [place] [address] January, [facility] [address] [id number] [address] [place] [address], [place] [address] January, [facility] [address] [id number] [address] [place] [address], [place] [address] January, [facility] [address] [id number] [facility] [place] [address] January, [facility] [address] [id number] [facility] [place] [address] January, [facility] [address] [id number] [facility] [place] [address] January, [facility] [address] [id number] [address] [place] [address], [place] [address] January, [facility] [address] [id number] [address] [place] [address], [place] [address] January, [facility] [address] [id number] [address] [place] [address], [place] [address] January, [facility] [address] [id number] [address] [place] [address], [place] [address] January, [facility] [address] [id number] [address] [place] [address], [place] [address] January, [facility] [address] [id number] [address] [place] [address], [place] [address] January, [facility] [address] [id number] [address] [place] [address], [place] [address] Dec, [facility] [address] [id number] [address] [place] [address], [place] [address] Dec, [facility] [address] [id number] [address] [place] [address], [place] [address] Dec, [facility] [address] [id number] [address] [place] [address], [place] [address] Dec, [facility] [address] [id number] [address] [place] [address], [place] [address] Dec, [facility] [address] [id number] [address] [place] [address], [place] [address] Dec, [facility] [address] [id number] [address] [place] [address], [place] [address] Dec, [facility] [address] [id number] [facility] [place] [address] Dec, [facility] [address] [id number] [address] [place] [address], [place] [address] Dec, [facility] [address] [id number] [address] [place] [address], [place] [address] Dec, [facility] [address] [id number] [address] [place] [address], [place] [address] Nov, [facility] [address] [id number] [address] [place] [address], [place] [address] Nov, [facility] [address] [id number] [address] [place] [address], [place] [address] Nov, [facility] [address] [id number] [address] [place] [address], [place] [address] Nov, [facility] [address] [id number] [address] [place] [address], [place] [address] Nov, [facility] [address] [id number] [address] [place] [address], [place] [address] Nov, [facility] [address] [id number] [address] [place] [address], [place] [address] Nov, [facility] [address] [id number] [address] [place] [address], [place] [address] Nov, [facility] [address] [id number] [address] [place] [address], [place] [address] Nov, [facility] [address] [id number] [address] [place] [address], [place] [id number] Nov, [facility] [address] [id number] [address] [place] [address], [place] [address] Oct, [facility] [address] [id number] [address] [place] [address], [place] [address] Oct, [facility] [address] [id number] [address] [place] [address], [place] [address] Oct, [facility] [address] [id number] [address] [place] [address], [place] [address] Oct, [facility] [address] [id number] [address] [place] [address], [place] [address] Oct, [facility] [address] [id number] [address] [place] [address], [place] [id number] Oct, [facility] [address] [id number] [address] [place] [address], [place] [id number] Oct, [facility] [address] [id number] [address] [place] [address], [place] [id number] Oct, [facility] [address] [id number] [address] [place] [address], [place] [address] Oct, [facility] [address] [id number] [address] [place] [address], [place] [id number] Oct, [facility] [address] [id number] [address] [place] [address], [place] [id number] Oct, [facility] [address] [id number] [address] [place] [address], [place] [id number] Oct, [facility] [address] [id number] [address] [place] [address], [place] [address] Oct, [facility] [address] [id number] [address] [place] [address], [place] [address] Oct, [facility] [address] [id number] [address] [place] [address], [place] [address] Sep, [facility] [address] [id number] [address] [place] [address], [place] [address] Sep, [facility] [address] [id number] [address] [place] [address], [place] [address] Sep, [facility] [address] [id number] [address] [place] [id number] 15 Sep, 2013 [facility] [address] [id number] [address] [place] [address], [place] [id number] 14 Sep, 2013 [facility] [address] [id number] [address] [place] [address], [place] [id number] 14 Sep, 2013 [facility] [address] [id number] [address] [place] [address], [place] [address] Sep, [facility] [address] [id number] [address] [place] [address], [place] [address] Sep, [facility] [address] [id number] [address] [place] [address], [place] [address] Sep, [facility] [address] [id number] [address] [place] [address], [place] [id number] Sep, [facility] [address] [id number] [address] [place] [address], [place] [address] Aug, [facility] [address] [id number] [address] [place] [address], [place] [address] Aug, [facility] [address] [id number] [address] [place] [address], [place] [id number] Jul, [facility] [address] [id number] [address] [place] [address], [place] [id number] Jul, [facility] [address] [id number] [address] [place] [address], [place] [id number] Jul, [facility] [address] [id number] [address] [place] [address], [place] [id number] Jul, [facility] [address] [id number] [address] [place] [address], [place] [address] Jul, [facility] [address] [id number] [address] [place] [address], [place] [address] Jul, [facility] [address] [id number] [address] [place] [address], [place] [address] Jul, [facility] [address] [id number] [address] [place] [address], [place] [id number] 12 Jul, 2013 [facility] [address] [id number] [address] [place] [address], [place] [address] Jul, [facility] [address] [id number] [address] [place] [address], [place] [id number] 08 Jul, 2013 [facility] [address] [id number] [address] [place] [address], [place] [address] Jul, 2012 [facility] [address] [id number] [address] [place] [address], [place] [address] Jul, 2012 [facility] [address] [id number] [address] [place] [address], [place] [address] Jul, [facility] [address] [id number] [address] [place] [address], [place] [id number] Jul, [facility] [address] [id number] [address] [place] [address], [place] [id number] Jul, [facility] [address] [id number] [address] [place] [address], [place] [id number] Jul, [facility] [address] [id number] [address] [place] [address], [place] [address] Jul, [facility] [address] [id number] [address] [place] [address], [place] [address] Jul, [facility] [address] [id number] [address] [place] [address], [place] [id number] Jul, [facility] [address] [id number] [address] [place] [address], [place] [address] Jun, [facility] [address] [id number] [address] [place] [address], [place] [address] Jun, [facility] [address] [id number] [address] [place] [address], [place] [address] Jun, [facility] [address] [id number] [address] [place] [address], [place] [address] Jun, [facility] [address] [id number] [address] [place] [address], [place] [address] 16 Jun, 2013 [facility] [address] [id number] [address] [place] [address], [place] [address] 16 Jun, 2013 [facility] [address] [id number] [address] [place] [address], [place] [address] 10 Jun, 2013 [facility] [address] [id number] [address] [place] [address], [place] [address] 10 Jun, 2013 [facility] [address] [id number] [address] [place] [address], [place] [address] Jun, [facility] [address] [id number] [address] [place] [address], [place] [address] 09 Jun, 2013 [facility] [address] [id number] [address] [place] [address], [place] [address] Jun, [facility] [address] [id number] [address] [place] [address] 26 Sep, 2012 [facility] [address] [id number] [address] [place] [address], [place] [address] 25 Sep, 2012 [facility] [address] [id number] [address] [place] [address] 19 Sep, 2012 [facility] [address] [id number] [address] [place] [address], [place] [address] 17 Sep, 2012 [facility] [address] [id number] [address] [place] [id number] 11 Sep, 2012 [facility] [address] [id number] [address] [place] [address], [place] [address] 10 Sep, 2012 [facility] [address] [id number] [address] [place] [address] 09 Sep, 2012 [facility] [address] [id number] [address] [place] [address], [place] [address] 05 Sep, 2012 [facility] [address] [id number] [address] [place] [address], [place] [address] Apr, [facility] [address] [id number] [address] [place] [address], [place] [address] Apr, [facility] [address] [id number] [address] [place] [address], [place] [address] Apr, [facility] [address] [id number] [address] [place] [address], [place] [address] Apr, [facility] [address] [id number] [address] [place] [address], [place] [address] Apr, [facility] [address] [id number] [address] [place] [address], [place] [address] Mar, [facility] [address] [id number] [address] [place] [address], [place] [address] Mar, [facility] [address] [id number] [address] [place] [address], [place] [address] Mar, [facility] [address] [id number] [address] [place] [address], [place] [address] Mar, [facility] [address] [id number] [address] [place] [address], [place] [address] Mar, [facility] [address] [id number] [address] [place] [address], [place] [address] Mar, [facility] [address] [id number] [address] [place] [address], [place] [address] Mar, [facility] [address] [id number] [address] [place] [address], [place] [address] Mar, [facility] [address] [id number] [address] [place] [address], [place] [address] Feb, [facility] [address] [id number] [address] [place] [address], [place] [address] Feb, [facility] [address] [id number] [address] [place] [address], [place] [address] January, [facility] [address] [id number] [address] [place] [address], [place] [address] January, [facility] [address] [id number] [address] [place] [address], [place] [address] Dec, [facility] [address] [id number] [address] [place] [address], [place] [address] Dec, [facility] [address] [id number] [address] [place] [address], [place] [address] Nov, [facility] [address] [id number] [address] [place] [address], [place] [address] Nov, [facility] [address] [id number] [address] [place] [address], [place] [address] Nov, [facility] [address] [id number] [address] [place] [address], [place] [address] Nov, [facility] [address] [id number] [address] [place] [address], [place] [address] Oct, [facility] [address] [id number] [address] [place] [address], [place] [address] Oct, [facility] [address] [id number] [address] [place] [address], [place] [address] Oct, [facility] [address] [id number] [address] [place] [address], [place] [address] Oct, [facility] [address] [id number] [address] [place] [address], [place] [address] 16 Oct, 2012 [facility] [address] [id number] [address] [place] [address], [place] [address] 14 Oct, 2012 [facility] [address] [id number] [address] [place] [address], [place] [address] 08 Oct, 2012 [facility] [address] [id number] [address] [place] [address], [place] [address] 07 Oct, 2012 [facility] [address] [id number] [address] [place] [address], [place] [address] 03 Oct, 2012 [facility] [address] [id number] [address] [place] [address], [place] [address] 30 Sep, 2012 [facility] [address] [id number] [address] [place] [address], [place] [address] Sep, [facility] [address] [id number] [address] [place] [address], [place] [address] Sep, [facility] [address] [id number] [address] [place] [address], [place] [address] Sep, [facility] [address] [id number] [address] [place] [address], [place] [address] Sep, [facility] [address] [id number] [address] [place] [address], [place] [address] Sep, [facility] [address] [id number] [address] [place] [address], [place] [address] Sep, [facility] [address] [id number] [address] [place] [address], [place] [address] Sep, [facility] [address] [id number] [address] [place] [address], [place] [address] 31 Aug, 2012 [facility] [address] [id number] [address] [place] [address], [place] [address] 31 Aug, 2012 [facility] [address] [id number] [address] [place] [address], [place] [address] Aug, [facility] [address] [id number] [address] [place] [address], [place] [address] Aug, [facility] [address] [id number] [address] [place] [address], [place] [address] Aug, [facility] [address] [id number] [address] [place] [address], [place] [address] Aug, [facility] [address] [id number] [address] [place] [address], [place] [address] 18 Aug, 2012 [facility] [address] [id number] [address] [place] [address], [place] [address] Aug, [facility] [address] [id number] [address] [place] [address], [place] [address] Jul, [facility] [address] [id number] [address] [place] [address], [place] [address] Jul, [facility] [address] [id number] [address] [place] [address], [place] [address] Jul, [facility] [address] [id number] [address] [place] [address], [place] [address] Jul, [facility] [address] [id number] [address] [place] [address], [place] [address] Jul, [facility] [address] [id number] [address] [place] [address], [place] [address] Jul, [facility] [address] [id number] [address] [place] [address], [place] [address] Jun, [facility] [address] [id number] [address] [place] [address], [place] [address] Jun, [facility] [address] [id number] [address] [place] [address], [place] [address] Jun, [facility] [address] [id number] [address] [place] [address], [place] [address] Jun, [facility] [address] [id number] [address] [place] [address], [place] [address] Jun, [facility] [address] [id number] [address] [place] [address], [place] [address] Jun, [facility] [address] [id number] [address] [place] [address], [place] [address] Jun, [facility] [address] [id number] [address] [place] [address], [place] [address] Jun, [facility] [address] [id number] [address] [place] [address], [place] [address] Jun, [facility] [address] [id number] [address] [place] [address], [place] [address] 26 May, 2012 [facility] [address] [id number] [address] [place] [address], [place] [address] 24 May, 2012 [facility] [address] [id number] [address] [place] [address], [place] [address] May, [facility] [address] [id number] [address] [place] [address], [place] [address] Apr, [facility] [address] [id number] [address] [place] [address], [place] [address] Apr, [facility] [address] [id number] [address] [place] [address], [place] [address] Apr, [facility] [address] [id number] [address] [place] [address], [place] [address] Apr, [facility] [address] [id number] [address] [place] [address], [place] [address] Apr, [facility] [address] [id number] [address] [place] [address], [place] [address] Apr, [facility] [address] [id number] [address] [place] [address], [place] [address] Mar, [facility] [address] [id number] [address] [place] [address], [place] [address] Mar, [facility] [address] [id number] [address] [place] [address], [place] [address] Mar, [facility] [address] [id number] [address] [place] [address], [place] [address] Mar, [facility] [address] [id number] [address] [place] [address], [place] [address] Feb, [facility] [address] [id number] [address] [place] [address], [place] [address] Feb, [facility] [address] [id number] [address] [place] [address], [place] [address] Feb, [facility] [address] [id number] [address] [place] [address], [place] [address] Feb, [facility] [address] [id number] [address] [place] [address], [place] [address] Feb, [facility] [address] [id number] [address] [place] [address], [place] [address] January, [facility] [address] [id number] [address] [place] [address], [place] [address] January, [facility] [address] [id number] [address] [place] [address], [place] [address] January, [facility] [address] [id number] [address] [place] [address], [place] [address] January, [facility] [address] [id number] [address] [place] [address], [place] [address] January, [facility] [address] [id number] [address] [place] [address], [place] [address] January, [facility] [address] [id number] [address] [place] [address], [place] [address] Dec, [facility] [address] [id number] [address] [place] [address], [place] [address] Dec, [facility] [address] [id number] [address] [place] [address], [place] [address] Dec, [facility] [address] [id number] [address] [place] [address], [place] [address] Dec, [facility] [address] [id number] [address] [place] [address], [place] [address] Dec, [facility] [address] [id number] [address] [place] [address], [place] [address] Nov, [facility] [address] [id number] [address] [place] [address], [place] [address] 14 Nov, 2011 [facility] [address] [id number] [address] [place] [address], [place] [address] 12 Nov, 2011 [facility] [address] [id number] [address] [place] [address], [place] [address] 07 Nov, 2011 [facility] [address] [id number] [address] [place] [address], [place] [address] 29 Oct, 2011 [facility] [address] [id number] [address] [place] [address], [place] [address] 28 Oct, 2011 [facility] [address] [id number] [address] [place] [address], [place] [address] 24 Oct, 2011 [facility] [address] [id number] [address] [place] [address], [place] [address] 13 Oct, 2011 [facility] [address] [id number] [address] [place] [address], [place] [address] 08 Oct, 2011 [facility] [address] [id number] [address] [place] [address], [place] [address] Sep, [facility] [address] [id number] [address] [place] [address], [place] [address] Sep, [facility] [address] [id number] [address] [place] [address], [place] [address] Sep, [facility] [address] [id number] [address] [place] [address], [place] [address] Sep, [facility] [address] [id number] [address] [place] [address], [place] [address] Sep, [facility] [address] [id number] [address] [place] [address], [place] [address] Sep, [facility] [address] [id number] [address] [place] [address], [place] [address] Aug, [facility] [address] [id number] [address] [place] [address], [place] [address] Aug, [facility] [address] [id number] [address] [place] [address], [place] [address] Aug, [facility] [address] [id number] [address] [place] [address], [place] [address] Jul, [facility] [address] [id number] [address] [place] [address], [place] [address] Jul, [facility] [address] [id number] [address] [place] [address], [place] [address] Jul, [facility] [address] [id number] [address] [place] [address], [place] [address] Jul, [facility] [address] [id number] [address] [place] [address], [place] [address] Jun, [facility] [address] [id number] [address] [place] [address], [place] [address] Jun, [facility] [address] [id number] [address] [place] [address], [place] [address] Jun, [facility] [address] [id number] [address] [place] [address], [place] [address] Jun, [facility] [address] [id number] [address] [place] [address], [place] [address] Jun, [facility] [address] [id number] [address] [place] [address], [place] [address] Jun, [facility] [address] [id number] [address] [place] [address], [place] [address] Mar, [facility] [address] [id number] [address] [place] [address], [place] [address] Dec, [facility] [address] [id number] [address] [place] [address], [place] [address] Dec, [facility] [address] [id number] [address] [place] [address], [place] [address] Nov, [facility] [address] [id number] [address] [place] [address], [place] [address] 16 Nov, 2010 [facility] [address] [id number] [address] [place] [address], [place] [address] 10 Sep, 2010 [facility] [address] [id number] [address] [place] [address], [place] [address] Aug, [facility] [address] [id number] [address] [place] [address], [place] [address] Aug, [facility] [address] [id number] [address] [place] [address], [place] [address] Aug, [facility] [address] [id number] [address] [place] [address], [place] [address] Aug, [facility] [address] [id number] [address] [place] [address], [place] [address] Aug, [facility] [address] [id number] [address] [place] [address], [place] [address] Aug, [facility] [address] [id number] [address] [place] [address], [place] [address] Aug, [facility] [address] [id number] [address] [place] [address], [place] [address] Aug, [facility] [address] [id number] [address] [place] [address], [place] [address] Aug, [facility] [address] [id number] [address] [place] [address], [place] [address] Aug, [facility] [address] [id number] [address] [place] [address], [place] [address] Aug, [facility] [address] [id number] [address] [place] [address], [place] [address] Aug, [facility] [address] [id number] [address] [place] [address], [place] [address] Jul, [facility] [address] [id number] [address] [place] [address], [place] [address] Jul, [facility] [address] [id number] [address] [place] [address], [place] [id number] 30 Jul, 2010 [facility] [address] [id number] [address] [place] [address], [place] [id number] 17 Jul, 2010 [facility] [address] [id number] [address] [place] [address], [place] [id number] 08 Jul, 2010 [facility] [address] [id number] [address] [place] [address], [place] [address] Jul, [facility] [address] [id number] [address] [place] [address], [place] [address] 24 Jun, 2010 [facility] [address] [id number] [address] [place] [address], [place] [address] Jun, [facility] [address] [id number] [address] [place] [address], [place] [address] Jun, [facility] [address] [id number] [address] [place] [address], [place] [address] Jun, [facility] [address] [id number] [address] [place] [address], [place] [address] 16 Apr, 2010 [facility] [address] [id number] [address] [place] [address], [place] [address] Mar, [facility] [address] [id number] [address] [place] [address], [place] [address] Feb, [facility] [address] [id number] [address] [place] [id number] January, [facility] [address] [id number] [address] [place] [id number] 15 Dec, 2009 [facility] [address] [id number] [address] [place] [address], [place] [id number] Nov, [facility] [address] [id number] [address] [place] [address], [place] [address] 31 Aug, 2009 [facility] [address] [id number] [address] [place] [address], [place] [address] Aug, [facility] [address] [id number] [address] [place] [id number] Aug, [facility] [address] [id number] [address] [place] [id number] Jul, [facility] [address] [id number] [address] [place] [id number] Jul, [facility] [address] [id number] [address] [place] [id number] Jul, [facility] [address] [id number] [address] [place] [id number] Jun, [facility] [address] [id number] [address] [place] [id number] Jun, [facility] [address] [id number] [address] [place] [id number] Jun, [facility] [address] [id number] [address] [place] [id number] Jun, [facility] [address] [id number] [address] [place] [id number] Jun, [facility] [address] [id number] [address] [place] [id number] Jun, [facility] [address] [id number] [address] [place] [id number] Apr, [facility] [address] [id number] [address] [place] [id number] Apr, [facility] [address] [id number] [address] [place] [id number] Feb, [facility] [address] [id number] [address] [place] [id number] January, [facility] [address] [id number] [address] [place] [id number] Dec, IMMUNIZATIONS No Known Immunizations SOCIAL HISTORY Never Assessed REASON FOR VISIT EMR-[facility] PLAN OF CARE VITAL SIGNS MEDICATIONS Unknown [...] Medical History skin cancer-basal cell R mormonism (removed ) Medical History Arthritis Medical History [...] colonoscopy 2009 ([facility] 2013 ([facility] ) Surgical History heart cath: CAD w/ [...] inability to urinate 09/16/15 Hospitalization History [facility] health ea rly 1999's Hospitalization History hyperkalemia 10/2017 Hospitalization History fluid in lung
--- OUTSIDE RECORDS SUMMARY | 2020-03-01 17:34 | XMS REPORT ---
Author Author Michele WASHBURN Organization [facility] Address [address] [place] [address] Care Team Providers Care Miller Wood Flour Name Role Phone NOEMI WASHBURN Unavailable PROBLEMS Type Condition ICD9-CM Code VAK34-IE Code Onset Dates Condition S tatus SNOMED Code Problem Cough R05 Active 30561647 Problem Benign prostatic hyperplasia with lower urinary tract symptoms, unspecified morphology N40.1 Active 93254 6007 Problem Eustachian tube dysfunction, unspecified laterality H69.80 Active 49753354 Problem Chronic pain G89.29 Active 8566562 1 Problem DM neuro manif type II E11.49 Active 86662778 Problem Diabetes E11.9 Active 05807983 Problem Leukocytosis D72.829 Active 1943689 06 Problem Falling R29.6 Active 816328629 Problem Pressure ulcer of other site, stage 3 L89.893 Active 883584196 Problem 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 Active 783852494 Problem Eye exam abnormal R93.8 Active 16 2839962 Problem Dysuria R30.0 Active 17377245 Problem Hypokalemia E87.6 Active 62257985 Problem Morbid obesity E66.01 Active 26325 6002 Problem Anxiety F41.9 Active 99778219 Problem Diabetic polyneuropathy associated with type 2 d iabetes mellitus E11.42 Active 60877537 Problem Essential hypertension I10 Active 85204111 Problem Bilateral primary osteoarthritis of knee M17.0 Active 112973575 Problem Polyneuropathy associated with underlying disease G63 Active 279924388 Problem Anemia of chronic illness D63.8 Acti ve 059043685 Problem Lymphocytosis D72.820 Active 212700 09 Problem Retinal edema H35.81 Active 792400 6 Problem Chronic lymphocytic leukemia C91.10 A ctive 93728407 Problem Bipolar disorder, in partial remission, most rec ent episode depressed F31.75 Active 62646380 Problem Pure hypercholesterolemia E78.00 Acti ve 827718028 Problem Primary osteoarthritis of right knee M17.11 Active 726578290138713 Problem Bipolar disorder F31.9 Active 137 47235 Problem Bipolar I disorder, most recent episode (or curr ent) mixed, moderate F31.62 Active 81242629 Problem Chronic diastolic (congestive) heart failure I50.3 2 Active 305007715 Problem Reactive airway disease J45.909 Active 668319171536 Problem Insomnia, unspecified type G47.00 Act sharon 589629017 Problem Other chronic pain G89.29 Active 8 9055251 Problem Other iron deficiency anemia D50.8 A ctive 43913533 Problem Mild cognitive impairment G31.84 Acti ve 695421193 Problem Skin cancer C44.90 Active 24261068 7 ALLERGIES Substance Reaction Event Type Date Status Breo Ellipta Tongue Swelling Drug Allergy Nov, Active ENCOUNTERS Encounter Location Date Diagnosis [facility] [address] [facility] [id number] [address] [place] [address] Mar, [facility] [address] [place] [id number] [address] [place] [address] Feb, [facility] [address] [facility] [id number] [address] [place] [address] January, [facility] [address] [place] [id number] [address] [place] [address] January, [facility] [address] [facility] [id number] [address] [place] [address] January, [facility] [address] [facility] [id number] [address] [place] [address] January, Bipolar disorder, in partial remission, most recent episode depressed F31.75 and Mild cognitive impairment G31.84 [facility] [address] [facility] [id number] [address] [place] [address] Dec, [facility] [address] [facility] [id number] [address] [place] [address] Dec, Chronic pain G89.29 and Bipo lar disorder F31.9 [facility] [address] [facility] [id number] [address] [place] [address] Dec, 2018 Edema of both lower extremit ies R60.0 [place] [address] [facility] [id number] [address] [place] [address] 15 Dec, 2018 Bipolar disorder F31.9 [facility] [address] [facility] [id number] [address] [place] [address] Dec, Bipolar disorder, in partial remission, most recent episode depressed F31.75 and Mild cognitive impairment G31.84 [place] [address] [facility] [id number] [address] [place] [address] Nov, [place] [address] [facility] [id number] [address] [place] [address] Nov, Chronic pain G89.29 [place] [address] [facility] [id number] [address] [place] [address] Nov, Bipolar disorder, in partial remission, most recent episode depressed F31.75 and Mild cognitive impairment G31.84 [place] [address] [facility] [id number] [address] [place] [address] 18 Nov, 2018 Bipolar disorder F31.9 [place] [address] [facility] [id number] [address] [place] [address] 04 Nov, 2018 Encounter for Medicare annua [...] unspecified morphology N40.1 and Essential hypertension I10 [place] [address] [facility] [id number] [address] [place] [address] Oct, Chronic pain G89.29 [place] [address] [place] [id number] [address] [place] [address] Oct, Diabetes E11.9 [facility] [address] [facility] [id number] [address] [place] [address] Oct, Bipolar I disorder, most rec ent episode (or current) mixed, moderate F31.62 and Mild cognitive impairment G31.84 [place] [address] [place] [id number] [address] [place] [address] Oct, Bipolar I disorder, most rec ent episode (or current) mixed, moderate F31.62 and Mild cognitive impairment G31.84 [place] [address] [facility] [id number] [address] [place] [address] Sep, Bipolar I disorder, most rec ent episode (or current) mixed, moderate F31.62 and Mild cognitive impairment G31.84 [place] [address] [place] [id number] [address] [place] [address] Sep, [place] [id number] [address] [place] [address] Sep, Diabetes E11.9 ; Hypoxia R09 .02 ; Hyperglycemia R73.9 ; Therapeutic drug monitoring Z51.81 ; BMI 50.0-59.9, adult Z68.43 and Skin cancer C44.90 [place] [address] [facility] [id number] [address] [place] [address] Sep, Chronic pain G89.29 [place] [id number] [address] [place] [address] Sep, Bipolar I disorder, most rec ent episode (or current) mixed, moderate F31.62 [place] [address] [facility] [id number] [address] [place] [address] Sep, [place] [id number] [address] [place] [address] Sep, [place] [address] [place] [id number] [address] [place] [address] Aug, Chronic pain G89.29 [place] [id number] [address] [place] [address] Aug, Bipolar I disorder, most rec ent episode (or current) mixed, moderate F31.62 [facility] [address] [facility] [id number] [address] [place] [address] Aug, Bipolar I disorder, most rec ent episode (or current) mixed, moderate F31.62 and Mild cognitive impairment G31.84 [facility] [address] [facility] [id number] [address] [place] [address] Jul, [facility] [address] [facility] [id number] [address] [place] [address] Jul, Chronic pain G89.29 [facility] [address] [facility] [id number] [address] [place] [address] Jul, Bipolar I disorder, most rec ent episode (or current) mixed, moderate F31.62 and Mild cognitive impairment G31.84 [facility] [address] [place] [id number] [address] [place] [address] Jul, Bipolar I disorder, most rec ent episode (or current) mixed, moderate F31.62 and MCI (mild cognitive impairment) G31.84 [facility] [address] [facility] [id number] [address] [place] [address] Jul, [facility] [address] [facility] [id number] [address] [place] [address] Jul, [facility] [address] [facility] [id number] [address] [place] [address] Jul, Bipolar I disorder, most rec ent episode (or current) mixed, moderate F31.62 [facility] [address] [facility] [id number] [address] [place] [address] Jul, Chronic pain G89.29 [facility] [address] [facility] [id number] [address] [place] [address] Jun, Bipolar I disorder, most rec ent episode (or current) mixed, moderate F31.62 [place] [id number] [facility] [id number] [address] [place] [address] Jun, Pre-procedure lab exam Z01.8 12 [facility] [address] [facility] [id number] [address] [place] [address] Jun, [facility] [address] [facility] [id number] [place] [id number] Jun, [facility] [address] [facility] [id number] [address] [place] [address] Jun, [facility] [address] [facility] [id number] [address] [place] [address] Jun, Forgetfulness R68.89 ; Pre-s yncope R55 ; Localized edema R60.0 ; Other iron deficiency anemia D50.8 and BMI 50.0-59.9, adult Z68.43 [place] [address] [place] [id number] [address] [place] [address] Jun, Chronic pain G89.29 [facility] [address] [place] [id number] [address] [place] [address] Jun, Chronic pain G89.29 [place] [address] [place] [id number] [address] [place] [address] Jun, Bipolar I disorder, most rec ent episode (or current) mixed, moderate F31.62 [facility] [address] [place] [id number] [address] [place] [address] May, Chronic pain G89.29 [facility] [address] [facility] [id number] [address] [place] [address] Apr, [facility] [address] [place] [id number] [address] [place] [address] Apr, Chronic pain G89.29 [facility] [address] [place] [id number] [address] [place] [address] Apr, Primary osteoarthritis of ri ght knee M17.11 [facility] [address] [address] Mar, [place] [address] [address] Mar, BMI 50.0-59.9, adult Z68.43 and Bipolar disorder, in partial remission, most recent episode depressed F31.75 [place] [address] [address] Mar, Diabetes E11.9 ; Pure hyperc holesterolemia E78.00 ; Essential hypertension I10 ; Nausea with vomiting, unspecified R11.2 and Headache, unspecified headache type R51 [place] [address] [address] Mar, Bipolar I disorder, most rec ent episode (or current) mixed, moderate F31.62 [place] [address] [address] Mar, Bipolar I disorder, most rec ent episode (or current) mixed, moderate F31.62 [place] [address] [address] Mar, Chronic pain G89.29 [place] [address] [address] Mar, Bipolar I disorder, most rec ent episode (or current) mixed, moderate F31.62 [place] [address] [address] Feb, Bipolar I disorder, most rec ent episode (or current) mixed, moderate F31.62 [place] [address] [address] 14 Feb, 2018 Chronic pain G89.29 [place] [address] [place] [id number] [place] [address] 06 Feb, 2018 Decubitus ulcer of right josselin t, stage 3 L89.893 and BMI 50.0-59.9, adult Z68.43 [place] [address] [facility] [id number] [address] [place] [address] Feb, Bipolar I disorder, most rec ent episode (or current) mixed, moderate F31.62 [facility] [address] [facility] [id number] [address] [place] [address] Feb, [place] [address] [facility] [id number] [address] [place] [address] January, [place] [address] [facility] [id number] [address] [place] [address] January, Chronic pain G89.29 [place] [address] [facility] [id number] [address] [place] [address] January, Bipolar I disorder, most rec ent episode (or current) mixed, moderate F31.62 [place] [address] [place] [id number] [address] [place] [address] January, Bipolar I disorder, most rec ent episode (or current) mixed, moderate F31.62 [place] [address] [facility] [id number] [address] [place] [address] Dec, Bipolar I disorder, most rec ent episode (or current) mixed, moderate F31.62 and BMI 50.0-59.9, adult Z68.43 [place] [address] [place] [id number] [address] [place] [address] Dec, Bipolar I disorder, most rec ent episode (or current) mixed, moderate F31.62 [place] [address] [facility] [id number] [address] [place] [address] Dec, Chronic pain G89.29 [place] [address] [place] [id number] [address] [place] [address] Dec, DM neuro manif type II E11.4 9 ; Right flank pain R10.9 ; 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 ; Encounter for medication monitoring Z51.81 and BMI 50.0-59.9, adult Z68.43 [place] [address] [facility] [id number] [address] [place] [address] Dec, Bipolar I disorder, most rec ent episode (or current) mixed, moderate F31.62 [facility] [address] [facility] [id number] [address] [place] [address] Nov, Bipolar I disorder, most rec ent episode (or current) mixed, moderate F31.62 [facility] [address] [facility] [id number] [address] [place] [address] Nov, Chronic pain G89.29 [place] [address] [facility] [id number] [address] [place] [address] Nov, Bipolar I disorder, most rec ent episode (or current) mixed, moderate F31.62 [place] [address] [facility] [id number] [address] [place] [address] Nov, Hypokalemia E87.6 [place] [address] [place] [id number] [address] [place] [address] Nov, Bipolar I disorder, most rec ent episode (or current) mixed, moderate F31.62 [place] [address] [facility] [id number] [address] [place] [address] Oct, Chronic pain G89.29 [facility] [address] [facility] [id number] [address] [place] [address] Oct, BMI 50.0-59.9, adult Z68.43 and Bipolar I disorder, most recent episode (or current) mixed, moderate F31.62 [place] [address] [facility] [id number] [address] [place] [address] Oct, Bipolar I disorder, most rec ent episode (or current) mixed, moderate F31.62 [facility] [address] [facility] [id number] [address] [place] [address] Oct, [facility] [address] [facility] [id number] [address] [place] [address] Oct, Hypokalemia E87.6 [facility] [address] [facility] [id number] [address] [place] [address] Oct, DM neuro manif type II E11.4 9 [facility] [address] [facility] [id number] [address] [place] [address] Oct, Bipolar I disorder, most rec ent episode (or current) mixed, moderate F31.62 [facility] [address] [place] [id number] [address] [place] [address] Oct, Bipolar I disorder, most rec ent episode (or current) mixed, moderate F31.62 [place] [address] [place] [id number] [address] [place] [address] Oct, Hyperkalemia E87.5 ; Falling R29.6 ; BMI 50.0-59.9, adult Z68.43 and Acute left ankle pain M25.572 [place] [address] [place] [id number] [address] [place] [address] Oct, DM neuro manif type II E11.4 9 [facility] [address] [place] [id number] [address] [place] [address] Oct, [place] [address] [place] [id number] [place] [address] Sep, Chronic pain G89.29 [place] [address] [place] [id number] [address] [place] [address] Sep, [place] [address] [place] [id number] [address] [place] [address] Sep, Bilateral primary osteoarthr itis of knee M17.0 [place] [address] [place] [id number] [address] [place] [address] Sep, Generalized edema R60.1 [facility] [address] [place] [id number] [address] [place] [address] Sep, Bipolar I disorder, most rec ent episode (or current) mixed, moderate F31.62 [place] [id number] [place] [id number] [address] [place] [address] 15 Sep, 2017 Hypoxia R09.02 ; Other hyper volemia E87.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 ; Anemia of chronic illness D63.8 and BMI 50.0- 59.9, adult Z68.43 [place] [address] [place] [id number] [address] [place] [address] Sep, [place] [address] [place] [id number] [address] [place] [address] Sep, Bipolar I disorder, most rec ent episode (or current) mixed, moderate F31.62 [place] [address] [place] [id number] [address] [place] [address] Aug, Chronic pain G89.29 [place] [address] [place] [id number] [address] [place] [address] Aug, Generalized edema R60.1 [place] [address] [place] [id number] [address] [place] [address] Aug, [place] [address] [place] [id number] [address] [place] [address] Aug, [place] [address] [place] [id number] [address] [place] [address] 14 Aug, 2017 Bipolar I disorder, most rec ent episode (or current) mixed, moderate F31.62 [place] [address] [place] [id number] [address] [place] [address] 07 Aug, 2017 Bipolar I disorder, most rec ent episode (or current) mixed, moderate F31.62 [place] [address] [place] [id number] [address] [place] [address] 04 Aug, 2017 Chronic pain G89.29 [place] [address] [place] [id number] [address] [place] [address] Jul, Bipolar I disorder, most rec ent episode (or current) mixed, moderate F31.62 [facility] [address] [facility] [id number] [address] [place] [address] Jul, Bipolar I disorder, most rec ent episode (or current) mixed, moderate F31.62 and BMI 60.0-69.9, adult Z68.44 [place] [address] [place] [id number] [address] [place] [address] Jul, Bipolar I disorder, most rec ent episode (or current) mixed, moderate F31.62 [place] [address] [facility] [id number] [address] [place] [address] Jul, Chronic pain G89.29 [place] [address] [place] [id number] [address] [place] [address] Jul, Bipolar I disorder, most rec ent episode (or current) mixed, moderate F31.62 [place] [address] [place] [id number] [address] [place] [address] Jun, Polyneuropathy associated wi th underlying disease G63 and Diabetes E11.9 [place] [address] [place] [id number] [address] [place] [address] Jun, Bipolar I disorder, most rec ent episode (or current) mixed, moderate F31.62 [place] [address] [place] [id number] [address] [place] [address] Jun, Chronic pain G89.29 [facility] [address] [place] [id number] [address] [place] [address] May, Bipolar I disorder, most rec ent episode (or current) mixed, moderate F31.62 [facility] [address] [facility] [id number] [address] [place] [address] May, Bipolar I disorder, most rec ent episode (or current) mixed, moderate F31.62 [place] [address] [place] [id number] [address] [place] [address] May, Diabetic polyneuropathy asso ciated with type 2 diabetes mellitus E11.42 [facility] [address] [id number] [address] [place] [id number] 18 May, 2017 Bipolar I disorder, most rec ent episode (or current) mixed, moderate F31.62 [facility] [address] [id number] [address] [place] [phone] 13 May, 2017 Bipolar I disorder, most rec ent episode (or current) mixed, moderate F31.62 [facility] [address] [id number] [address] [place] [id number] 12 May, 2017 Chronic pain G89.29 [facility] [address] [id number] [address] [place] [id number] 30 Apr, 2017 Bipolar I disorder, most rec ent episode (or current) mixed, moderate F31.62 [facility] [address] [id number] [address] [place] [phone] Apr, [facility] [address] [id number] [address] [place] [phone] Apr, Chronic pain G89.29 and DM n euro manif type II E11.49 [facility] [address] [id number] [address] [place] [phone] Apr, [facility] [address] [id number] [address] [place] [phone] Apr, Bipolar I disorder, most rec ent episode (or current) mixed, moderate F31.62 [facility] [address] [id number] [address] [place] [id number] 14 Apr, 2017 Chronic pain G89.29 [facility] [address] [id number] [address] [place] [phone] 03 Apr, 2017 Iliotibial band syndrome, le ft M76.32 [facility] [address] [id number] [address] [place] [phone] Apr, Bipolar I disorder, most rec ent episode (or current) mixed, moderate F31.62 [facility] [address] [facility] [id number] [address] [place] [phone] Mar, Bipolar I disorder, most rec ent episode (or current) mixed, moderate F31.62 [facility] [address] [facility] [id number] [address] [place] [phone] Mar, Bipolar I disorder, most rec ent episode (or current) mixed, moderate F31.62 [facility] [address] [facility] [id number] [address] [place] [phone] Mar, [facility] [address] [facility] [facility] [id number] [address] [place] [address] Mar, Bipolar I disorder, most rec ent episode (or current) mixed, moderate F31.62 [facility] [address] [id number] [address] [place] [address] Mar, Chronic pain G89.29 [facility] [address] [id number] [address] [place] [address] Mar, Bipolar I disorder, most rec ent episode (or current) mixed, moderate F31.62 [facility] [address] [facility] [id number] [address] [place] [address] Mar, Bipolar I disorder, most rec ent episode (or current) mixed, moderate F31.62 [facility] [address] [facility] [id number] [address] [place] [address] Mar, Acute pain of left knee M25. 562 ; Left hip pain M25.552 ; Generalized edema R60.1 and Tongue swelling R22.0 [facility] [address] [facility] [id number] [address] [place] [address] Mar, [facility] [address] [id number] [address] [place] [address] Feb, Chronic pain G89.29 [facility] [address] [id number] [address] [place] [address] Feb, Diabetes E11.9 [facility] [address] [facility] [id number] [address] [place] [address] January, Chronic pain G89.29 [facility] [address] [facility] [id number] [address] [place] [address] January, [facility] [address] [facility] [id number] [address] [place] [address] January, Bipolar I disorder, most rec ent episode (or current) mixed, moderate F31.62 [facility] [address] [facility] [id number] [address] [place] [address] Dec, Bipolar I disorder, most rec ent episode (or current) mixed, moderate F31.62 [facility] [address] [facility] [id number] [address] [place] [address] Dec, Chronic pain G89.29 [place] [address] [facility] [id number] [address] [place] [address] Dec, Bipolar I disorder, most rec ent episode (or current) mixed, moderate F31.62 [place] [id number] [facility] [id number] [address] [place] [address] Dec, Diabetes E11.9 ; Essential h ypertension I10 ; Chronic pain G89.29 and Morbid obesity E66.01 [facility] [address] [facility] [id number] [address] [place] [address] Dec, [facility] [address] [facility] [id number] [address] [place] [address] Dec, Bipolar I disorder, most rec ent episode (or current) mixed, moderate F31.62 [facility] [address] [facility] [id number] [address] [place] [address] Dec, Bipolar I disorder, most rec ent episode (or current) mixed, moderate F31.62 [place] [address] [facility] [id number] [address] [place] [address] Nov, Chronic pain G89.29 [facility] [address] [id number] [address] [place] [address] Nov, Bipolar I disorder, most rec ent episode (or current) mixed, moderate F31.62 [facility] [address] [id number] [address] [place] [address] Nov, [facility] [address] [facility] [id number] [address] [place] [address] Nov, Bipolar I disorder, most rec ent episode (or current) mixed, moderate F31.62 [facility] [address] [id number] [address] [place] [address] Nov, Bipolar I disorder, most rec ent episode (or current) mixed, moderate F31.62 [facility] [address] [id number] [address] [place] [address] Nov, [facility] [address] [facility] [id number] [address] [place] [address] Nov, [facility] [address] [id number] [address] [place] [address] Nov, [facility] [address] [facility] [id number] [address] [place] [address] Oct, Chronic pain G89.29 [facility] [address] [facility] [id number] [address] [place] [address] Oct, Bipolar I disorder, most rec ent episode (or current) mixed, moderate F31.62 [facility] [address] [facility] [id number] [address] [place] [address] Oct, [facility] [address] [facility] [id number] [address] [place] [address] Oct, Chronic pain G89.29 ; Diabet es E11.9 ; Anxiety F41.9 and 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 [facility] [address] [facility] [id number] [address] [place] [address] Oct, [facility] [address] [id number] [address] [place] [address] Oct, Diabetes E11.9 [facility] [address] [id number] [address] [place] [address] Oct, Bipolar I disorder, most rec ent episode (or current) mixed, moderate F31.62 [facility] [address] [facility] [id number] [address] [place] [address] Sep, Chronic pain G89.29 [facility] [address] [id number] [address] [place] [address] Sep, Chronic pain G89.29 [facility] [address] [id number] [address] [place] [address] Aug, Chronic pain G89.29 [facility] [address] [facility] [id number] [address] [place] [address] Jul, [facility] [address] [facility] [id number] [address] [place] [address] Jul, Diabetes E11.9 [facility] [address] [id number] [address] [place] [address] Jul, Chronic pain G89.29 [facility] [address] [facility] [id number] [address] [place] [address] Jul, Bipolar I disorder, most rec ent episode (or current) mixed, moderate F31.62 [facility] [address] [facility] [id number] [address] [place] [address] Jun, Bipolar I disorder, most rec ent episode (or current) mixed, moderate F31.62 [facility] [address] [facility] [id number] [address] [place] [address] Jun, [facility] [address] [facility] [id number] [address] [place] [address] Jun, Bipolar I disorder, most rec ent episode (or current) mixed, moderate F31.62 [facility] [address] [id number] [address] [place] [address] 30 May, 2016 Insomnia, unspecified type G 47.00 [place] [address] [id number] [address] [place] [address] 22 May, 2016 Bipolar I disorder, most rec ent episode (or current) mixed, moderate F31.62 [place] [address] [address] [id number] [place] [address] 14 May, 2016 [place] [address] [address] 08 May, 2016 Bipolar I disorder, most rec ent episode (or current) mixed, moderate F31.62 [place] [address] [address] 06 May, 2016 Diabetes E11.9 and Essential hypertension I10 [place] [address] [address] Apr, Chronic pain G89.29 [place] [address] [address] Apr, Bipolar I disorder, most rec ent episode (or current) mixed, moderate F31.62 [place] [address] [place] [id number] [address] [place] [address] Apr, [place] [address] [address] Apr, [place] [address] [address] Mar, Chronic pain G89.29 ; Headac he, unspecified headache type R51 ; Neuropathy G62.9 ; Pain of right hip joint M25.551 and Essential hypertension I10 [place] [address] [id number] [address] [place] [address] Mar, Chronic pain G89.29 [place] [address] [address] [id number] [address] [place] [address] Mar, Bipolar I disorder, most rec ent episode (or current) mixed, moderate F31.62 [facility] [address] [id number] [address] [place] [address] Feb, Bipolar I disorder, most rec ent episode (or current) mixed, moderate F31.62 and Insomnia, unspecified type G47.00 [facility] [address] [id number] [address] [place] [address] Feb, Chronic pain G89.29 [facility] [address] [id number] [address] [place] [address] Feb, Bipolar I disorder, most rec ent episode (or current) mixed, moderate F31.62 [facility] [address] [id number] [address] [place] [address] January, Bipolar I disorder, most rec ent episode (or current) mixed, moderate F31.62 [facility] [address] [id number] [address] [place] [address] January, Chronic pain G89.29 [facility] [address] [id number] [address] [place] [address] January, Chronic pain G89.29 and Esse ntial hypertension I10 [facility] [address] [id number] [address] [place] [address] January, Bipolar I disorder, most rec ent episode (or current) mixed, moderate F31.62 [facility] [address] [id number] [address] [place] [address] Dec, [facility] [address] [id number] [address] [place] [address] Dec, [facility] [address] [id number] [address] [place] [address] Dec, [facility] [address] [id number] [address] [place] [address] Dec, [facility] [address] [id number] [address] [place] [address] Nov, Reactive airway disease J45. 909 [facility] [address] [facility] [id number] [address] [place] [address] Nov, [facility] [address] [facility] [id number] [address] [place] [address] Nov, [facility] [address] [id number] [address] [place] [address] Nov, [facility] [address] [id number] [address] [place] [address] Nov, [facility] [address] [address] [id number] [address] [place] [address] Nov, Onychomycosis B35.1 ; Hammer toe M20.40 ; Mcclure or callus L84 and DM neuro manif type II E11.49 [place] [id number] [place] [address] Nov, Chronic pain G89.29 ; Leukoc ytosis D72.829 and Diabetes E11.9 [facility] [id number] [place] [address] Nov, [facility] [address] [id number] [address] [place] [address] Oct, Bronchitis J40 [facility] [address] [id number] [address] [place] [address] Oct, [facility] [address] [facility] [id number] [address] [place] [address] Oct, [facility] [address] [id number] [address] [place] [address] Oct, Mastoiditis, unspecified lat erality H70.90 and Type 2 diabetes mellitus with complication E11.8 [facility] [address] [id number] [address] [place] [address] Sep, [facility] [address] [id number] [address] [place] [address] Sep, Dysuria R30.0 ; Cough R05 ; Benign prostatic hyperplasia with lower urinary tract symptoms, unspecified morphology N40.1 ; Hypokalemia E87.6 and Eustachian tube dysfunction, unspecified laterality H69.80 [facility] [address] [id number] [address] [place] [address] Sep, Moderate mixed bipolar I dis order F31.62 [facility] [address] [id number] [address] [place] [address] Sep, Hypokalemia E87.6 [facility] [address] [id number] [address] [place] [address] Sep, [facility] [address] [id number] [address] [place] [address] Sep, Upper respiratory tract infe ction, unspecified type J06.9 [facility] [address] [id number] [address] [place] [address] Aug, [facility] [address] [id number] [address] [place] [address] Aug, Dysuria R30.0 [facility] [address] [id number] [address] [place] [address] Aug, [facility] [address] [id number] [address] [place] [address] Jul, [facility] [address] [id number] [address] [place] [address] Jul, [facility] [address] [id number] [address] [place] [address] Jul, [facility] [address] [id number] [address] [place] [address] Jul, [facility] [address] [id number] [address] [place] [address] Jun, [facility] [address] [facility] [id number] [address] [place] [address] Jun, [facility] [address] [facility] [id number] [address] [place] [address] Jun, [facility] [address] [facility] [id number] [address] [place] [address] May, [facility] [address] [id number] [address] [place] [address] May, Bipolar I disorder, most rec ent episode (or current) mixed, moderate 296.62 [facility] [address] [facility] [id number] [address] [place] [address] May, [facility] [address] [id number] [address] [place] [address] May, Bipolar I disorder, most rec ent episode (or current) mixed, moderate 296.62 and Major depressive disorder, recurrent episode, severe, specified as with psychotic behavior 296.34 [facility] [address] [id number] [address] [place] [address] May, Bipolar I disorder, most rec ent episode (or current) mixed, moderate 296.62 [facility] [address] [id number] [address] [place] [address] May, [facility] [address] [id number] [address] [place] [address] Apr, [facility] [address] [id number] [address] [place] [address] Apr, [facility] [address] [id number] [address] [place] [address] Apr, Unspecified disorder of kidn ey and ureter 593.9 and Diabetes mellitus type 2, uncontrolled 250.02 [facility] [address] [id number] [address] [place] [address] Apr, [facility] [address] [id number] [address] [place] [address] Apr, [facility] [address] [facility] [id number] [address] [place] [address] Apr, [facility] [address] [facility] [id number] [address] [place] [address] Apr, [facility] [address] [facility] [id number] [address] [place] [address] Apr, Diabetes mellitus type II, u ncontrolled 250.02 [facility] [address] [facility] [id number] [address] [place] [address] Apr, [facility] [address] [id number] [address] [place] [address] Mar, [facility] [address] [id number] [address] [place] [address] Mar, [facility] [address] [place] [address] [id number] [address] [place] [address] Mar, [facility] [address] [id number] [address] [place] [address] Mar, Major depressive disorder, r ecurrent episode, severe, specified as with psychotic behavior 296.34 and Bipolar I disorder, most recent episode (or current) mixed, moderate 296.62 [facility] [address] [id number] [address] [place] [address] Mar, Diabetes 250.00 ; Anuria 788 .5 ; Nausea and vomiting 787.01 and Diarrhea 787.91 [facility] [address] [facility] [id number] [address] [place] [address] Mar, Diabetes 250.00 [facility] [address] [place] [address] [id number] [address] [place] [address] Mar, [facility] [address] [place] [address] [id number] [address] [place] [address] Mar, Diabetes 250.00 [facility] [address] [place] [address] [id number] [address] [place] [address] Mar, [facility] [address] [address] Mar, [facility] [address] [address] Mar, [facility] [address] [address] Mar, [facility] [address] [address] Mar, Bipolar I disorder, most rec ent episode (or current) mixed, moderate 296.62 and Major depressive disorder, recurrent episode, severe, specified as with psychotic behavior 296.34 [place] [address] [address] Mar, Magnesium deficiency 275.2 ; Hypokalemia 276.8 ; Nausea & vomiting 787.01 and Diabetes mellitus type 2, uncontrolled 250.02 [facility] [address] [address] Feb, [facility] [address] [address] Feb, Bipolar I disorder, most rec ent episode (or current) mixed, moderate 296.62 [facility] [address] [address] Feb, Nausea and vomiting 787.01 ; Left elbow pain 719.42 ; Anuria 788.5 and Diabetes 250.00 [facility] [address] [address] Feb, [facility] [address] [address] Feb, Hypopotassemia 276.8 and Hyp okalemia 276.8 [facility] [address] [address] Feb, Hypopotassemia 276.8 and Hyp okalemia 276.8 [place] [id number] [id number] [address] [place] [address] Feb, Seborrheic keratoses 702.19 [facility] [address] [id number] [address] [place] [address] Feb, Hypopotassemia 276.8 and Low magnesium levels 275.2 [facility] [address] [id number] [address] [place] [address] January, [facility] [address] [id number] [address] [place] [address] January, [facility] [address] [id number] [address] [place] [address] January, [facility] [address] [facility] [id number] [address] [place] [address] January, Scalp lesion 709.9 [facility] [address] [facility] [id number] [address] [place] [address] January, [facility] [address] [facility] [id number] [address] [place] [address] Dec, Tear of medial cartilage or meniscus of knee, current 836.0 and 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 [facility] [address] [facility] [id number] [address] [place] [address] Dec, [facility] [address] [facility] [id number] [address] [place] [address] Dec, [facility] [address] [facility] [id number] [address] [place] [address] Dec, Squamous cell carcinoma, 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 [facility] [address] [facility] [id number] [address] [place] [address] 14 Dec, 2014 [facility] [address] [facility] [id number] [address] [place] [id number] Dec, [facility] [address] [facility] [id number] [address] [place] [id number] Nov, [facility] [address] [id number] [facility] [id number] Nov, [facility] [address] [id number] [address] [place] [address], [place] [id number] Nov, [facility] [address] [id number] [address] [place] [address], [place] [id number] Nov, [facility] [address] [id number] [address] [place] [address], [place] [id number] Nov, [facility] [address] [id number] [address] [place] [address], [place] [id number] Nov, [facility] [address] [id number] [address] [place] [address], [place] [id number] Nov, [facility] [address] [id number] [address] [place] [address], [place] [id number] Nov, [facility] [address] [id number] [address] [place] [address], [place] [id number] Nov, [facility] [address] [id number] [address] [place] [address], [place] [id number] Nov, [facility] [address] [id number] [address] [place] [address], [place] [id number] Nov, [facility] [address] [id number] [address] [place] [address], [place] [id number] Nov, [facility] [address] [id number] [address] [place] [address], [place] [id number] Oct, [facility] [address] [id number] [address] [place] [address], [place] [id number] Oct, [facility] [address] [id number] [address] [place] [address], [place] [id number] Oct, [facility] [address] [id number] [address] [place] [address], [place] [id number] Oct, [facility] [address] [id number] [address] [place] [address], [place] [id number] Oct, 2014 [facility] [address] [id number] [address] [place] [address], [place] [id number] Oct, [facility] [address] [id number] [address] [place] [address], [place] [id number] Oct, 2014 [facility] [address] [id number] [address] [place] [address], [place] [id number] Oct, [facility] [address] [id number] [address] [place] [address], [place] [id number] Oct, [facility] [address] [id number] [address] [place] [address], [place] [id number] Sep, [facility] [address] [id number] [address] [place] [address], [place] [id number] Sep, [facility] [address] [id number] [address] [place] [address], [place] [id number] Sep, [facility] [address] [id number] [address] [place] [address], [place] [id number] Sep, [facility] [address] [id number] [address] [place] [address], [place] [address] Sep, [facility] [address] [id number] [address] [place] [address], [place] [address] Sep, [facility] [address] [id number] [address] [place] [address], [place] [address] Sep, [facility] [address] [id number] [address] [place] [address], [place] [address] Sep, [facility] [address] [id number] [address] [place] [address], [place] [address] Sep, [facility] [address] [id number] [address] [place] [address], [place] [address] Sep, [facility] [address] [id number] [address] [place] [address], [place] [address] Sep, [facility] [address] [id number] [address] [place] [address], [place] [address] Sep, [facility] [address] [id number] [address] [place] [address], [place] [address] Sep, [facility] [address] [id number] [address] [place] [address], [place] [address] Sep, [facility] [address] [id number] [address] [place] [address], [place] [address] Sep, [facility] [address] [id number] [address] [place] [address], [place] [address] Sep, [facility] [address] [id number] [address] [place] [address], [place] [address] Aug, [facility] [address] [id number] [address] [place] [address], [place] [address] Aug, [facility] [address] [id number] [address] [place] [address], [place] [address] Aug, [facility] [address] [id number] [address] [place] [address], [place] [address] Aug, [facility] [address] [id number] [address] [place] [address], [place] [address] Aug, [facility] [address] [id number] [address] [place] [address], [place] [address] Aug, [facility] [address] [id number] [address] [place] [address], [place] [address] Aug, [facility] [address] [id number] [address] [place] [address], [place] [address] Aug, [facility] [address] [id number] [address] [place] [address], [place] [id number] Aug, [facility] [address] [id number] [address] [place] [address], [place] [address] Aug, [facility] [address] [id number] [facility] [address] Aug, [facility] [address] [place] [id number] Aug, [facility] [address] [id number] [facility] [address] Aug, [facility] [address] [id number] [facility] [address] Aug, [facility] [address] [id number] [facility] [address] Aug, [facility] [address] [id number] [address] [place] [address], [place] [address] Aug, [facility] [address] [id number] [facility] [address] Aug, [facility] [address] [id number] [address] [place] [address], [place] [address] Aug, [facility] [address] [id number] [address] [place] [address], [place] [address] Aug, [facility] [address] [id number] [address] [place] [address], [place] [address] Aug, [facility] [address] [id number] [address] [place] [address], [place] [address] Aug, [facility] [address] [id number] [address] [place] [address], [place] [address] Aug, [facility] [address] [id number] [address] [place] [address], [place] [address] Aug, [facility] [address] [id number] [address] [place] [address], [place] [address] Aug, [facility] [address] [id number] [address] [place] [address], [place] [address] Aug, [facility] [address] [id number] [address] [place] [address], [place] [address] Aug, [facility] [address] [id number] [address] [place] [address], [place] [address] Aug, [facility] [address] [id number] [address] [place] [address], [place] [address] Aug, [facility] [address] [id number] [address] [place] [address], [place] [address] Aug, [facility] [address] [id number] [address] [place] [address], [place] [address] Aug, [facility] [address] [id number] [address] [place] [address], [place] [address] Jul, [facility] [address] [id number] [address] [place] [address], [place] [address] Jul, [facility] [address] [id number] [address] [place] [address], [place] [address] Jul, [facility] [address] [id number] [address] [place] [address], [place] [address] Jul, [facility] [address] [id number] [address] [place] [address], [place] [address] Jul, [facility] [address] [id number] [address] [place] [address], [place] [address] Jul, [facility] [address] [id number] [address] [place] [address], [place] [address] Jul, [facility] [address] [id number] [address] [place] [address], [place] [address] Jul, [facility] [address] [id number] [address] [place] [address], [place] [address] Jul, [facility] [address] [id number] [address] [place] [address], [place] [address] Jul, [facility] [address] [id number] [address] [place] [address], [place] [address] Jun, [facility] [address] [id number] [address] [place] [address], [place] [address] Jun, [facility] [address] [id number] [address] [place] [address], [place] [address] 16 Jun, 2014 [facility] [address] [id number] [address] [place] [address], [place] [address] 16 Jun, 2014 [facility] [address] [id number] [address] [place] [address], [place] [id number] 15 Jun, 2014 [facility] [address] [id number] [address] [place] [address], [place] [id number] 15 Jun, 2014 [facility] [address] [id number] [address] [place] [address], [place] [address] Jun, [facility] [address] [id number] [address] [place] [address], [place] [address] Jun, [facility] [address] [id number] [address] [place] [address], [place] [address] Jun, [facility] [address] [id number] [address] [place] [address], [place] [address] Jun, [facility] [address] [id number] [address] [place] [address], [place] [address] 29 May, 2013 [facility] [address] [id number] [address] [place] [address], [place] [address] 29 Sep, 2013 [facility] [address] [id number] [address] [place] [address], [place] [address] 26 Sep, 2013 [facility] [address] [id number] [address] [place] [id number] 26 Sep, 2013 [facility] [address] [id number] [address] [place] [address], [place] [address] 17 Sep, 2013 [facility] [address] [id number] [address] [place] [address], [place] [address] 17 Sep, 2013 [facility] [address] [id number] [address] [place] [address], [place] [id number] 15 May, 2013 [facility] [address] [id number] [facility] [address] 15 May, 2013 [facility] [address] [id number] [address] [place] [address], [place] [address] 15 May, 2013 [facility] [address] [id number] [facility] [address] 15 May, 2013 [facility] [address] [id number] [address] [place] [address], [place] [address] 10 May, 2013 [facility] [address] [id number] [address] [place] [address], [place] [address] 10 May, 2013 [facility] [address] [id number] [address] [place] [address], [place] [address] 09 May, 2013 [facility] [address] [id number] [address] [place] [address], [place] [address] 09 May, 2013 [facility] [address] [id number] [address] [place] [address], [place] [address] 04 May, 2013 [facility] [address] [id number] [address] [place] [address], [place] [address] May, 2013 [facility] [address] [id number] [address] [place] [address], [place] [address] Apr, [facility] [address] [id number] [address] [place] [address], [place] [address] Apr, [facility] [address] [id number] [address] [place] [address], [place] [address] Apr, [facility] [address] [id number] [address] [place] [address], [place] [address] Apr, [facility] [address] [id number] [address] [place] [address], [place] [address] Apr, [facility] [address] [id number] [address] [place] [address], [place] [address] Apr, [facility] [address] [id number] [address] [place] [address], [place] [address] Apr, [facility] [address] [id number] [facility] [address] Apr, [facility] [address] [id number] [address] [place] [address], [place] [address] Apr, [facility] [address] [id number] [address] [place] [address], [place] [address] Apr, [facility] [address] [id number] [address] [place] [address], [place] [address] Apr, [facility] [address] [id number] [address] [place] [address], [place] [address] Apr, [facility] [address] [id number] [address] [place] [address], [place] [address] Apr, [facility] [address] [id number] [address] [place] [address], [place] [address] Apr, [facility] [address] [id number] [address] [place] [address], [place] [address] Apr, [facility] [address] [id number] [address] [place] [address], [place] [address] Mar, [facility] [address] [id number] [address] [place] [address], [place] [id number] Mar, [facility] [address] [id number] [address] [place] [address], [place] [address] Mar, [facility] [address] [id number] [address] [place] [address], [place] [address] Mar, [facility] [address] [id number] [address] [place] [address], [place] [address] Mar, [facility] [address] [id number] [address] [place] [address], [place] [address] Mar, [facility] [address] [id number] [address] [place] [address], [place] [address] Mar, [facility] [address] [id number] [address] [place] [address], [place] [address] Mar, 2013 [facility] [address] [id number] [address] [place] [address], [place] [id number] Mar, 2013 [facility] [address] [id number] [address] [place] [address], [place] [address] Mar, 2013 [facility] [address] [id number] [address] [place] [address], [place] [address] Mar, 2013 [facility] [address] [id number] [address] [place] [address], [place] [address] Mar, 2013 [facility] [address] [id number] [address] [place] [address], [place] [address] Mar, 2013 [facility] [address] [id number] [address] [place] [address], [place] [address] Mar, 2013 [facility] [address] [id number] [address] [place] [address], [place] [address] Mar, 2013 [facility] [address] [id number] [address] [place] [address], [place] [address] Mar, 2013 [facility] [address] [id number] [address] [place] [address], [place] [address] Mar, [facility] [address] [id number] [address] [place] [address], [place] [address] Mar, [facility] [address] [id number] [address] [place] [address], [place] [address] Feb, [facility] [address] [id number] [address] [place] [address], [place] [address] Feb, [facility] [address] [id number] [address] [place] [address], [place] [address] Feb, [facility] [address] [id number] [address] [place] [address], [place] [address] Feb, [facility] [address] [id number] [address] [place] [address], [place] [address] Feb, [facility] [address] [id number] [facility] [address] Feb, [facility] [address] [id number] [facility] [address] Feb, [facility] [address] [id number] [facility] [address] Feb, [facility] [address] [id number] [facility] [address] Feb, [facility] [address] [id number] [facility] [address] Feb, [facility] [address] [id number] [facility] [address] Feb, [facility] [address] [id number] [facility] [address] Feb, [facility] [address] [id number] [address] [place] [address], [place] [address] Feb, [facility] [address] [id number] [address] [place] [address], [place] [address] Feb, [facility] [address] [id number] [address] [place] [address], [place] [address] January, [facility] [address] [id number] [address] [place] [address], [place] [address] January, [facility] [address] [id number] [address] [place] [address], [place] [address] January, [facility] [address] [id number] [address] [place] [address], [place] [address] January, [facility] [address] [id number] [address] [place] [address], [place] [address] January, [facility] [address] [id number] [facility] [address] January, [facility] [address] [id number] [address] [place] [address], [place] [address] January, [facility] [address] [id number] [facility] [address] January, [facility] [address] [id number] [address] [place] [address], [place] [address] January, [facility] [address] [id number] [address] [place] [address], [place] [address] January, [facility] [address] [id number] [address] [place] [address], [place] [address] January, [facility] [address] [id number] [address] [place] [address], [place] [address] January, [facility] [address] [id number] [address] [place] [address], [place] [address] January, [facility] [address] [id number] [address] [place] [address], [place] [address] January, [facility] [address] [id number] [address] [place] [address], [place] [address] Dec, [facility] [address] [id number] [address] [place] [address], [place] [address] Dec, [facility] [address] [id number] [address] [place] [address], [place] [address] Dec, [facility] [address] [id number] [address] [place] [address], [place] [address] Dec, [facility] [address] [id number] [address] [place] [address], [place] [address] Dec, [facility] [address] [id number] [address] [place] [address], [place] [address] Dec, [facility] [address] [id number] [address] [place] [address], [place] [address] Dec, [facility] [address] [id number] [address] [place] [address], [place] [address] Dec, [facility] [address] [id number] [address] [place] [address], [place] [address] Dec, [facility] [address] [id number] [facility] [address] Dec, [facility] [address] [id number] [address] [place] [address], [place] [address] Nov, [facility] [address] [id number] [address] [place] [address], [place] [address] Nov, [facility] [address] [id number] [address] [place] [address], [place] [address] Nov, [facility] [address] [id number] [address] [place] [address], [place] [address] Nov, [facility] [address] [id number] [address] [place] [address], [place] [address] Nov, [facility] [address] [id number] [address] [place] [address], [place] [address] Nov, [facility] [address] [id number] [address] [place] [address], [place] [address] Nov, [facility] [address] [id number] [address] [place] [address], [place] [address] Nov, [facility] [address] [id number] [address] [place] [address], [place] [address] Nov, [facility] [address] [id number] [address] [place] [address], [place] [address] Nov, [facility] [address] [id number] [address] [place] [address], [place] [address] Oct, [facility] [address] [id number] [address] [place] [address], [place] [address] Oct, [facility] [address] [id number] [address] [place] [address], [place] [address] Oct, [facility] [address] [id number] [address] [place] [address], [place] [address] Oct, [facility] [address] [id number] [address] [place] [address], [place] [address] Oct, [facility] [address] [id number] [address] [place] [address], [place] [id number] Oct, [facility] [address] [id number] [address] [place] [address], [place] [id number] Oct, [facility] [address] [id number] [address] [place] [address], [place] [id number] Oct, [facility] [address] [id number] [address] [place] [address], [place] [id number] Oct, [facility] [address] [id number] [address] [place] [address], [place] [id number] Oct, [facility] [address] [id number] [address] [place] [address], [place] [id number] Oct, [facility] [address] [id number] [address] [place] [address], [place] [id number] Oct, [facility] [address] [id number] [address] [place] [address], [place] [id number] Oct, [facility] [address] [id number] [address] [place] [address], [place] [id number] Oct, [facility] [address] [id number] [address] [place] [address], [place] [id number] Sep, [facility] [address] [id number] [address] [place] [address], [place] [id number] Sep, [facility] [address] [id number] [address] [place] [address], [place] [id number] Sep, [facility] [address] [id number] [address] [place] [address], [place] [id number] Sep, [facility] [address] [id number] [address] [place] [address], [place] [id number] Sep, [facility] [address] [id number] [address] [place] [address], [place] [id number] 14 Sep, 2013 [facility] [address] [id number] [address] [place] [address], [place] [id number] 14 Sep, 2013 [facility] [address] [id number] [address] [place] [address], [place] [id number] 14 Sep, 2013 [facility] [address] [id number] [address] [place] [address], [place] [id number] 08 Sep, 2013 [facility] [address] [id number] [address] [place] [address], [place] [id number] 08 Sep, 2013 [facility] [address] [id number] [address] [place] [address], [place] [id number] Aug, [facility] [address] [id number] [address] [place] [address], [place] [id number] Aug, [facility] [address] [id number] [address] [place] [address], [place] [id number] Jul, [facility] [address] [id number] [address] [place] [address], [place] [id number] Jul, [facility] [address] [id number] [address] [place] [address], [place] [id number] Jul, [facility] [address] [id number] [address] [place] [address], [place] [id number] Jul, [facility] [address] [id number] [address] [place] [address], [place] [id number] Jul, [facility] [address] [id number] [address] [place] [address], [place] [id number] Jul, [facility] [address] [id number] [address] [place] [address], [place] [id number] Jul, [facility] [address] [id number] [address] [place] [address], [place] [id number] Jul, [facility] [address] [id number] [address] [place] [address], [place] [id number] Jul, [facility] [address] [id number] [address] [place] [address], [place] [id number] 08 Jul, 2013 [facility] [address] [id number] [address] [place] [address], [place] [id number] Jul, [facility] [address] [id number] [address] [place] [address], [place] [id number] Jul, 2012 [facility] [address] [id number] [address] [place] [address], [place] [id number] Jul, [facility] [address] [id number] [address] [place] [address], [place] [id number] Jul, 2012 [facility] [address] [id number] [address] [place] [address], [place] [id number] Jul, [facility] [address] [id number] [address] [place] [address], [place] [id number] Jul, [facility] [address] [id number] [address] [place] [id number] Jul, [facility] [address] [id number] [address] [place] [address], [place] [id number] Jul, [facility] [address] [id number] [address] [place] [id number] Jul, [facility] [address] [id number] [address] [place] [id number] Jun, [facility] [address] [id number] [address] [place] [id number] Jun, [facility] [address] [id number] [address] [place] [id number] Jun, [facility] [address] [id number] [address] [place], [place] [id number] Jun, [facility] [address] [id number] [address] [place] [id number] Jun, [facility] [address] [id number] [address] [place] [id number] 16 Jun, 2013 [facility] [address] [id number] [address] [place] [address], [place] [id number] 10 Jun, 2013 [facility] [address] [id number] [address] [place] [address], [place] [id number] 10 Jun, 2013 [facility] [address] [id number] [address] [place] [address], [place] [id number] Jun, [facility] [address] [id number] [address] [place] [address], [place] [id number] Jun, [facility] [address] [id number] [address] [place] [address], [place] [id number] Jun, [facility] [address] [id number] [address] [place] [address], [place] [id number] 26 May, 2013 [facility] [address] [id number] [address] [place] [address], [place] [id number] 25 May, 2013 [facility] [address] [id number] [address] [place] [address], [place] [id number] 19 May, 2012 [facility] [address] [id number] [address] [place] [address], [place] [id number] 17 May, 2012 [facility] [address] [id number] [address] [place] [address], [place] [id number] 11 May, 2013 [facility] [address] [id number] [address] [place] [address], [place] [id number] 10 May, 2012 [facility] [address] [id number] [address] [place] [address], [place] [id number] 09 May, 2012 [facility] [address] [id number] [address] [place] [address], [place] [id number] 05 May, 2012 [facility] [address] [id number] [address] [place] [address], [place] [id number] 30 Apr, 2013 [facility] [address] [id number] [address] [place] [address], [place] [id number] 29 Apr, 2013 [facility] [address] [id number] [facility] [id number] Apr, [facility] [address] [id number] [address] [place] [address], [place] [id number] Apr, [facility] [address] [id number] [address] [place] [address], [place] [id number] Apr, [facility] [address] [id number] [address] [place] [address], [place] [id number] Mar, [facility] [address] [id number] [address] [place] [address], [place] [id number] Mar, [facility] [address] [id number] [address] [place] [address], [place] [id number] Mar, [facility] [address] [id number] [address] [place] [address], [place] [id number] Mar, [facility] [address] [id number] [address] [place] [address], [place] [id number] Mar, [facility] [address] [id number] [address] [place] [address], [place] [id number] Mar, [facility] [address] [id number] [address] [place] [address], [place] [id number] Mar, [facility] [address] [id number] [address] [place] [address], [place] [address] Mar, [facility] [address] [id number] [address] [place] [address], [place] [id number] Feb, [facility] [address] [id number] [address] [place] [address], [place] [id number] Feb, [facility] [address] [id number] [address] [place] [address], [place] [id number] January, [facility] [address] [id number] [address] [place] [address], [place] [id number] January, [facility] [address] [id number] [address] [place] [address], [place] [id number] 10 Dec, 2012 [facility] [address] [id number] [address] [place] [address], [place] [id number] 09 Dec, 2012 [facility] [address] [id number] [address] [place] [address], [place] [id number] 23 Nov, 2012 [facility] [address] [id number] [address] [place] [address], [place] [id number] Nov, [facility] [address] [id number] [address] [place] [address], [place] [id number] Nov, [facility] [address] [id number] [address] [place] [address], [place] [id number] Nov, [facility] [address] [id number] [address] [place] [address], [place] [id number] 27 Oct, 2012 [facility] [address] [id number] [address] [place] [address], [place] [id number] Oct, [facility] [address] [id number] [address] [place] [address], [place] [id number] Oct, [facility] [address] [id number] [address] [place] [address], [place] [id number] Oct, [facility] [address] [id number] [address] [place] [address], [place] [id number] 16 Oct, 2012 [facility] [address] [id number] [address] [place] [address], [place] [id number] 14 Oct, 2012 [facility] [address] [id number] [address] [place] [address], [place] [id number] 08 Oct, 2012 [facility] [address] [id number] [address] [place] [address], [place] [id number] 07 Oct, 2012 [facility] [address] [id number] [address] [place] [address], [place] [id number] 03 Oct, 2012 [facility] [address] [id number] [address] [place] [address], [place] [id number] Sep, [facility] [address] [id number] [address] [place] [address], [place] [id number] 29 Sep, 2012 [facility] [address] [id number] [address] [place] [address], [place] [id number] Sep, [facility] [address] [id number] [address] [place] [address], [place] [id number] Sep, [facility] [address] [id number] [address] [place] [address], [place] [id number] 17 Sep, 2012 [facility] [address] [id number] [address] [place] [address], [place] [id number] Sep, [facility] [address] [id number] [address] [place] [address], [place] [id number] Sep, [facility] [address] [id number] [address] [place] [address], [place] [id number] Sep, [facility] [address] [id number] [address] [place] [address], [place] [id number] 31 Aug, 2012 [facility] [address] [id number] [address] [place] [address], [place] [id number] 31 Aug, 2012 [facility] [address] [id number] [address] [place] [address], [place] [id number] Aug, [facility] [address] [id number] [address] [place] [address], [place] [id number] Aug, [facility] [address] [id number] [address] [place] [address], [place] [id number] Aug, [facility] [address] [id number] [address] [place] [address], [place] [id number] Aug, [facility] [address] [id number] [address] [place] [address], [place] [id number] Aug, [facility] [address] [id number] [address] [place] [address], [place] [id number] 18 Aug, 2012 [facility] [address] [id number] [address] [place] [address] [address] Jul, [facility] [address] [id number] [address] [place] [address], [place] [id number] Jul, [facility] [address] [id number] [address] [place] [address], [place] [id number] Jul, [facility] [address] [id number] [address] [place] [address], [place] [id number] Jul, [facility] [address] [id number] [address] [place] [address], [place] [address] Jul, [facility] [address] [id number] [address] [place] [address], [place] [id number] Jul, [facility] [address] [id number] [address] [place] [address], [place] [id number] Jun, [facility] [address] [id number] [address] [place] [address], [place] [id number] Jun, [facility] [address] [id number] [address] [place] [address], [place] [id number] Jun, [facility] [address] [id number] [address] [place] [address], [place] [address] Jun, [facility] [address] [id number] [address] [place] [id number] Jun, [facility] [address] [id number] [address] [place] [id number] Jun, [facility] [address] [id number] [address] [place] [id number] Jun, [facility] [address] [id number] [address] [place] [address], [place] [id number] Jun, [facility] [address] [id number] [address] [place] [id number] Jun, [facility] [address] [id number] [address] [place] [address], [place] [id number] 26 May, 2012 [facility] [address] [id number] [address] [place] [address], [place] [id number] 24 May, 2012 [facility] [address] [id number] [address] [place] [address], [place] [id number] May, [facility] [address] [id number] [address] [place] [address], [place] [id number] Apr, [facility] [address] [id number] [address] [place] [address], [place] [address] Apr, [facility] [address] [id number] [address] [place] [address], [place] [id number] Apr, [facility] [address] [id number] [address] [place] [address], [place] [id number] Apr, [facility] [address] [id number] [address] [place] [address], [place] [id number] Apr, [facility] [address] [id number] [address] [place] [address], [place] [id number] Apr, [facility] [address] [id number] [address] [place] [address], [place] [id number] Mar, [facility] [address] [id number] [address] [place] [address], [place] [id number] Mar, [facility] [address] [id number] [address] [place] [address], [place] [id number] Mar, [facility] [address] [id number] [address] [place] [address], [place] [id number] Mar, [facility] [address] [id number] [address] [place] [address], [place] [address] Feb, [facility] [address] [id number] [address] [place] [address], [place] [id number] Feb, [facility] [address] [id number] [address] [place] [address], [place] [id number] Feb, [facility] [address] [id number] [address] [place] [address], [place] [id number] Feb, [facility] [address] [id number] [address] [place] [address], [place] [id number] Feb, [facility] [address] [id number] [address] [place] [address], [place] [id number] January, [facility] [address] [id number] [address] [place] [address], [place] [id number] January, [facility] [address] [id number] [address] [place] [address], [place] [id number] January, [facility] [address] [id number] [address] [place] [address], [place] [id number] January, [facility] [address] [id number] [address] [place] [address], [place] [id number] January, [facility] [address] [id number] [address] [place] [address], [place] [id number] January, [facility] [address] [id number] [address] [place] [address], [place] [id number] Dec, [facility] [address] [id number] [address] [place] [address], [place] [id number] Dec, [facility] [address] [id number] [address] [place] [address], [place] [id number] Dec, [facility] [address] [id number] [address] [place] [address], [place] [id number] Dec, [facility] [address] [id number] [address] [place] [address], [place] [id number] Dec, [facility] [address] [id number] [address] [place] [address], [place] [id number] Nov, [facility] [address] [id number] [address] [place] [address], [place] [id number] 14 Nov, 2011 [facility] [address] [id number] [address] [place] [address], [place] [id number] Nov, [facility] [address] [id number] [address] [place] [address], [place] [id number] Nov, [facility] [address] [id number] [address] [place] [address], [place] [id number] Oct, [facility] [address] [id number] [address] [place] [address], [place] [id number] Oct, [facility] [address] [id number] [address] [place] [address], [place] [id number] 24 Oct, 2011 [facility] [address] [id number] [address] [place] [address], [place] [id number] Oct, [facility] [address] [id number] [address] [place] [address], [place] [id number] Oct, [facility] [address] [id number] [address] [place] [address], [place] [id number] Sep, [facility] [address] [id number] [address] [place] [address], [place] [id number] Sep, [facility] [address] [id number] [address] [place] [address], [place] [id number] Sep, [facility] [address] [id number] [address] [place] [address], [place] [id number] Sep, [facility] [address] [id number] [address] [place] [address], [place] [id number] Sep, [facility] [address] [id number] [address] [place] [address], [place] [id number] Sep, [facility] [address] [id number] [address] [place] [address], [place] [id number] Aug, [facility] [address] [id number] [address] [place] [address], [place] [id number] Aug, [facility] [address] [id number] [address] [place] [address], [place] [id number] Aug, [facility] [address] [id number] [address] [place] [address], [place] [id number] Jul, [facility] [address] [id number] [address] [place] [address], [place] [id number] Jul, [facility] [address] [id number] [address] [place] [address], [place] [address] Jul, [facility] [address] [id number] [address] [place] [address], [place] [id number] Jul, [facility] [address] [id number] [address] [place] [address], [place] [address] Jun, [facility] [address] [id number] [address] [place] [address], [place] [id number] Jun, [facility] [address] [id number] [address] [place] [address], [place] [id number] Jun, [facility] [address] [id number] [address] [place] [address], [place] [id number] Jun, [facility] [address] [id number] [address] [place] [address], [place] [id number] Jun, [facility] [address] [id number] [address] [place] [address], [place] [id number] Jun, [facility] [address] [id number] [address] [place] [address], [place] [id number] Mar, [facility] [address] [id number] [address] [place] [address], [place] [id number] Dec, [facility] [address] [id number] [address] [place] [address], [place] [address] Dec, [facility] [address] [id number] [address] [place] [address], [place] [id number] 18 Nov, 2010 [facility] [address] [id number] [address] [place] [address], [place] [id number] 16 Nov, 2010 [facility] [address] [id number] [address] [place] [address], [place] [id number] 10 Sep, 2010 [facility] [address] [id number] [address] [place] [address], [place] [id number] 31 Aug, 2010 [facility] [address] [id number] [address] [place] [address], [place] [id number] 29 Aug, 2010 [facility] [address] [id number] [address] [place] [address], [place] [id number] 29 Aug, 2010 [facility] [address] [id number] [address] [place] [address], [place] [id number] 29 Aug, 2010 [facility] [address] [id number] [address] [place] [address], [place] [address] 27 Aug, 2010 [facility] [address] [id number] [address] [place] [address], [place] [id number] 14 Aug, 2010 [facility] [address] [id number] [address] [place] [address], [place] [id number] 08 Aug, 2010 [facility] [address] [id number] [address] [place] [address], [place] [id number] 08 Aug, 2010 [facility] [address] [id number] [address] [place] [address], [place] [id number] 07 Aug, 2010 [facility] [address] [id number] [address] [place] [address], [place] [id number] 06 Aug, 2010 [facility] [address] [id number] [address] [place] [address], [place] [id number] 06 Aug, 2010 [facility] [address] [id number] [address] [place] [address], [place] [id number] Aug, [facility] [address] [id number] [address] [place] [id number] 30 Jul, 2010 [facility] [address] [id number] [address] [place] [address], [place] [id number] Jul, [facility] [address] [id number] [address] [place] [address], [place] [id number] 30 Jul, 2010 [facility] [address] [id number] [address] [place] [address], [place] [id number] 17 Jul, 2010 [facility] [address] [id number] [address] [place] [address], [place] [id number] 08 Jul, 2010 [facility] [address] [id number] [address] [place] [address], [place] [id number] Jul, [facility] [address] [id number] [address] [place] [address], [place] [id number] 24 Jun, 2010 [facility] [address] [id number] [address] [place] [address], [place] [id number] Jun, [facility] [address] [id number] [address] [place] [address], [place] [id number] Jun, [facility] [address] [id number] [address] [place] [address], [place] [id number] Jun, [facility] [address] [id number] [address] [place] [address], [place] [id number] 16 Apr, 2010 [facility] [address] [id number] [address] [place] [address], [place] [id number] Mar, [facility] [address] [id number] [address] [place] [address], [place] [id number] Feb, [facility] [address] [id number] [address] [place] [address], [place] [id number] January, [facility] [address] [id number] [address] [place] [address], [place] [id number] 15 Dec, 2009 [facility] [address] [id number] [address] [place] [address], [place] [id number] Nov, [facility] [address] [id number] [address] [place] [address], [place] [id number] Aug, [facility] [address] [id number] [address] [place] [address], [place] [id number] Aug, [facility] [address] [id number] [address] [place] [address], [place] [id number] 07 Aug, 2009 [facility] [address] [id number] [address] [place] [address], [place] [id number] Jul, [facility] [address] [id number] [address] [place] [id number] Jul, [facility] [address] [id number] [address] [place] [id number] Jul, [facility] [address] [id number] [address] [place] [id number] Jun, [facility] [address] [id number] [address] [place] [id number] Jun, [facility] [address] [id number] [address] [place] [id number] Jun, [facility] [address] [id number] [address] [place] [id number] Jun, [facility] [address] [id number] [address] [place] [id number] Jun, [facility] [address] [id number] [address] [place] [phone] Jun, [facility] [address] [id number] [address] [place] [id number] Apr, [facility] [address] [id number] [address] [place] [id number] Apr, [facility] [address] [id number] [address] [place] [id number] Feb, [facility] [address] [id number] [address] [place] [id number] January, [facility] [address] [id number] [address] [place] [id number] Dec, IMMUNIZATIONS Vaccine Route Administration Date Status TDAP (BOOSTRIX) IM Intramuscular November 26, 2018 Administered SOCIAL HISTORY Never Assessed REASON FOR VISIT Medicare AWV --DONTE Hernandez PLAN OF CARE Activity Details Follow Up 1 Year Reason:AWV VITAL SIGNS Height 67 in 2018-11-26 Weight 354.3 lbs 2018-11-26 Temperature 97.8 degrees Fahrenheit 2018-11-26 Heart Rate 86 bpm 2018-11-26 Respiratory Rate 22 2018-11-26 Oximetry at rest:93 % 2018-11-26 BMI 55.49 kg/m2 2018-11-26 Blood pressure systolic 166 mmHg 2018-11-26 Blood pressure diastolic 92 mmHg 2018-11-26 MEDICATIONS Medication Instructions Dosage Frequency Start Date End Date Duration S kalia Naproxen 500 MG TAKE ONE TABLET BY M OUTH EVERY 12 HOURS NEEDED FOR HEADACHE 90 Active Furosemide 20 MG Orally Once a day 3 tablets 24h 30 Active Percocet 10-325 MG Orally 4 times a day 1 tablet as needed 6h 2 1 Oct, 2018 28 days Active Clonidine HCl 0.1 MG Orally 2 times a day 1 tablet 12h 90 Active Valium 5 mg Orally Twice a day as needed for anxiety 1 tablet Oct, Active Aspirin 81 mg 1 tablet by Oral route 1 time per day 2013 Active Abilify 30 MG TAKE ONE TABLET BY MOUTH ONCE DAILY 30 Active Metoprolol Succinate ER 100 mg Orally twice a day 1 tablet 12h 90 days Active Potassium Chloride Kathi ER 20 MEQ Orally Once a day 1 tablet with food 24h 30 days Active NovoLog Flexpen 100 UNIT/ML INJECT 30 UN ITS SUBCUTANEOUSLY WITH BREAKFAST, 30 UNITS WITH LUNCH AND 40 UNITS WITH EVENING MEAL 90 Active Symbicort 80-4.5 MCG/ACT Inhalation Twice a day 2 puffs 12h 30 Active Ambien 10 mg Orally at bedtime as needed for sleep 1 tablet 30 Active Amlodipine Besylate 5 mg Orally Once a day 1 tablet 24h Nov, 90 days Active Allopurinol 300 MG Orally Once a day 1 tablet 24h 90 Active Singulair 10 mg Orally Once a day 1 Tablet by Oral route 1 time per day 24h Nov, 90 days Active Fluticasone Propionate 50 MCG/ACT Nasally Once a day 1 spray in each nostril 24h 30 Active Glucocard Expression Test - as directed Sep, Active Nexium 40 MG Orally Once a day 1 capsule 24h 90 Active Ventolin HFA 108 (90 Base) MCG/ACT Inhalation every 4 hrs 2 puffs a s needed 4h 30 Active Atorvastatin Calcium 20 MG Orally Once a day 1 tablet at bedtime 24h Active Vitamin D3 1,000 unit 2 capsule by Oral route 1 time per day Apr, Active Zofran ODT 8 MG Orally Twice a day as needed 1 tablet on the tongue and allow to dissolve 15 Active Gabapentin 300 MG Orally 3 times a day 2 capsules 8h 28 Mar, 2016 Active Voltaren 1 % Transdermal every 4-6 hours as needed 4grams to knee and hip 5 Active Losartan Potassium 100 MG Orally Once a day 1 tablet 24h Active Silver Sulfadiazine 1 % Externally Once a day 1 application to a ffected area 24h Feb, Not-Taking Victoza 18 MG/3ML INJECT 1.8MG SUBCUTANEOUSLY ONCE DAILY 90 Active Incruse Ellipta 62.5 MCG/INH Inhalation Once a day 1 puff 24h 90 Active Flomax 0.4 mg Orally Once a day 1 capsule 30 minutes after the same meal each day 24h 90 Active Lantus 100 UNIT/ML Subcutaneous 2 times a day 100u 12h Sep, Active Clopidogrel Bisulfate 75 MG Orally Once a day 1 tablet 24h 90 Not-Taking Imbruvica 140 MG Orally Once a day 3 capsules in the evening 24h Oct, Active Trintellix 20 MG TAKE ONE (1) TABLET BY MOUTH ONCE DAILY 30 Active RESULTS No Results PROCEDURES Procedure Date Ordered Result Body Site SINGLE IMMUNIZATION ADMIN November 26, 2018 TDAP (BOOSTRIX) November 26, 2018 ANNUAL TANIA VST; [facility] PPS INIT November 26, 2018 [facility] VISIT IPPE/AWV November 26, 2018 INSTRUCTIONS MEDICATIONS ADMINISTERED No Known [...] to urinate 09/16/15 Hospitalization History [facility] mental health e[facility] 1999's Hospitalization History hyperkalemia 10/2017 Hospitalization History fluid in lung
--- OUTSIDE RECORDS SUMMARY | 2020-03-01 17:34 | XMS REPORT ---
Author Author Michele Verduzco Doctor Organization [facility] Address Unknown Phone Unavailable Care Team Providers Care Associate Material Handler Name Role Phone Migration, Doctor Unavailable Unavailable PROBLEMS Type Condition ICD9-CM Code CAR94-BS Code Onset Dates Condition S tatus SNOMED Code Problem Cough R05 Active 05245323 Problem Benign prostatic hyperplasia with lower urinary tract symptoms, unspecified morphology N40.1 Active 48882 6007 Problem Eustachian tube dysfunction, unspecified laterality H69.80 Active 91148786 Problem Chronic pain G89.29 Active 8692191 1 Problem DM neuro manif type II E11.49 Active 69718278 Problem Diabetes E11.9 Active 48975483 Problem Leukocytosis D72.829 Active 4875978 06 Problem Falling R29.6 Active 738456792 Problem Pressure ulcer of other site, stage 3 L89.893 Active 527873253 Problem 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 Active 768098309 Problem Eye exam abnormal R93.8 Active 16 8208755 Problem Dysuria R30.0 Active 90375433 Problem Hypokalemia E87.6 Active 14964149 Problem Morbid obesity E66.01 Active 02350 6002 Problem Anxiety F41.9 Active 41367315 Problem Diabetic polyneuropathy associated with type 2 d iabetes mellitus E11.42 Active 05300739 Problem Essential hypertension I10 Active 83047387 Problem Bilateral primary osteoarthritis of knee M17.0 Active 155115947 Problem Polyneuropathy associated with underlying disease G63 Active 307027714 Problem Anemia of chronic illness D63.8 Acti ve 467939527 Problem Lymphocytosis D72.820 Active 279254 09 Problem Retinal edema H35.81 Active 745079 6 Problem Chronic lymphocytic leukemia C91.10 A ctive 40809021 Problem Bipolar disorder, in partial remission, most rec ent episode depressed F31.75 Active 10636410 Problem Pure hypercholesterolemia E78.00 Acti ve 893225676 Problem Primary osteoarthritis of right knee M17.11 Active 692136623268541 Problem Bipolar disorder F31.9 Active 137 37916 Problem Bipolar I disorder, most recent episode (or curr ent) mixed, moderate F31.62 Active 57422779 Problem Chronic diastolic (congestive) heart failure I50.3 2 Active 325681878 Problem Reactive airway disease J45.909 Active 756274938195 Problem Insomnia, unspecified type G47.00 Act sharon 941455865 Problem Other chronic pain G89.29 Active 8 0386920 Problem Other iron deficiency anemia D50.8 A ctive 35955805 Problem Mild cognitive impairment G31.84 Acti ve 168467026 Problem Skin cancer C44.90 Active 84242209 7 ALLERGIES No Information ENCOUNTERS Encounter Location Date Diagnosis [facility] [address] [facility] [id number] [address] [place] [address] Mar, [facility] [address] [facility] [id number] [address] [place] [address] January, [facility] [address] [facility] [id number] [address] [place] [address] January, [facility] [address] [facility] [id number] [address] [place] [address] January, [facility] [address] [facility] [id number] [address] [place] [address] Dec, [facility] [address] [facility] [id number] [address] [place] [address] Dec, Chronic pain G89.29 and Bipo lar disorder F31.9 [facility] [address] [facility] [id number] [address] [place] [address] Dec, Edema of both lower extremit ies R60.0 [facility] [address] [facility] [id number] [address] [place] [address] Dec, Bipolar disorder F31.9 [facility] [address] [facility] [id number] [address] [place] [address] Dec, Bipolar disorder, in partial remission, most recent episode depressed F31.75 and Mild cognitive impairment G31.84 [facility] [address] [facility] [id number] [address] [place] [address] Nov, [place] [address] [place] [id number] [address] [place] [address] Nov, Chronic pain G89.29 [place] [address] [place] [id number] [address] [place] [address] Nov, Bipolar disorder, in partial remission, most recent episode depressed F31.75 and Mild cognitive impairment G31.84 [place] [id number] [place] [address] Nov, Bipolar disorder F31.9 [place] [id number] [address] [place] [phone] 04 Nov, 2018 Encounter for Medicare annua [...] unspecified morphology N40.1 and Essential hypertension I10 [place] [address] [place] [id number] [address] [place] [address] Oct, Chronic pain G89.29 [place] [address] [place] [id number] [address] [place] [address] Oct, Diabetes E11.9 [place] [address] [facility] [id number] [address] [place] [address] Oct, Bipolar I disorder, most rec ent episode (or current) mixed, moderate F31.62 and Mild cognitive impairment G31.84 [place] [address] [place] [id number] [address] [place] [address] Oct, Bipolar I disorder, most rec ent episode (or current) mixed, moderate F31.62 and Mild cognitive impairment G31.84 [place] [address] [facility] [id number] [address] [place] [address] Sep, Bipolar I disorder, most rec ent episode (or current) mixed, moderate F31.62 and Mild cognitive impairment G31.84 [place] [address] [place] [id number] [address] [place] [address] Sep, [place] [address] [place] [id number] [address] [place] [address] Sep, Diabetes E11.9 ; Hypoxia R09 .02 ; Hyperglycemia R73.9 ; Therapeutic drug monitoring Z51.81 ; BMI 50.0-59.9, adult Z68.43 and Skin cancer C44.90 [place] [address] [place] [id number] [address] [place] [address] Sep, Chronic pain G89.29 [place] [address] [place] [id number] [address] [place] [address] Sep, Bipolar I disorder, most rec ent episode (or current) mixed, moderate F31.62 [place] [address] [place] [id number] [address] [place] [address] Sep, [place] [address] [place] [id number] [address] [place] [address] Sep, [place] [address] [place] [id number] [address] [place] [address] Aug, Chronic pain G89.29 [place] [address] [place] [id number] [address] [place] [address] Aug, Bipolar I disorder, most rec ent episode (or current) mixed, moderate F31.62 [place] [address] [place] [id number] [address] [place] [address] Aug, Bipolar I disorder, most rec ent episode (or current) mixed, moderate F31.62 and Mild cognitive impairment G31.84 [place] [address] [place] [id number] [address] [place] [address] Jul, [facility] [address] [id number] [address] [place] [address] Jul, Chronic pain G89.29 [facility] [address] [id number] [address] [place] [address] Jul, Bipolar I disorder, most rec ent episode (or current) mixed, moderate F31.62 and Mild cognitive impairment G31.84 [facility] [address] [id number] [address] [place] [address] Jul, Bipolar I disorder, most rec ent episode (or current) mixed, moderate F31.62 and MCI (mild cognitive impairment) G31.84 [facility] [address] [id number] [address] [place] [address] Jul, [facility] [address] [id number] [address] [place] [address] Jul, [facility] [address] [id number] [address] [place] [address] Jul, Bipolar I disorder, most rec ent episode (or current) mixed, moderate F31.62 [facility] [address] [id number] [address] [place] [address] Jul, Chronic pain G89.29 [facility] [address] [id number] [address] [place] [address] Jun, Bipolar I disorder, most rec ent episode (or current) mixed, moderate F31.62 [facility] [address] [id number] [address] [place] [address] Jun, Pre-procedure lab exam Z01.8 12 [facility] [address] [id number] [place] [id number] Jun, [facility] [address] [id number] [address] [place] [address] Jun, [facility] [address] [id number] [address] [place] [address] Jun, [place] [address] [place] [id number] [address] [place] [address] Jun, Forgetfulness R68.89 ; Pre-s yncope R55 ; Localized edema R60.0 ; Other iron deficiency anemia D50.8 and BMI 50.0-59.9, adult Z68.43 [place] [address] [place] [id number] [address] [place] [address] Jun, Chronic pain G89.29 [place] [address] [place] [id number] [address] [place] [address] Jun, Chronic pain G89.29 [place] [address] [place] [id number] [place] [address] Jun, Bipolar I disorder, most rec ent episode (or current) mixed, moderate F31.62 [place] [address] [place] [id number] [address] [place] [address] May, Chronic pain G89.29 [place] [address] [place] [id number] [address] [place] [address] Apr, [place] [address] [place] [id number] [place] [address] Apr, Chronic pain G89.29 [place] [address] [place] [id number] [address] [place] [address] Apr, Primary osteoarthritis of ri ght knee M17.11 [place] [address] [place] [id number] [address] [place] [address] Mar, [place] [address] [place] [id number] [address] [place] [address] Mar, BMI 50.0-59.9, adult Z68.43 and Bipolar disorder, in partial remission, most recent episode depressed F31.75 [place] [address] [place] [id number] [address] [place] [address] Mar, Diabetes E11.9 ; Pure hyperc holesterolemia E78.00 ; Essential hypertension I10 ; Nausea with vomiting, unspecified R11.2 and Headache, unspecified headache type R51 [facility] [address] [facility] [id number] [address] [place] [address] Mar, Bipolar I disorder, most rec ent episode (or current) mixed, moderate F31.62 [facility] [address] [place] [id number] [address] [place] [address] Mar, Bipolar I disorder, most rec ent episode (or current) mixed, moderate F31.62 [place] [address] [facility] [id number] [address] [place] [address] Mar, Chronic pain G89.29 [place] [address] [facility] [id number] [address] [place] [address] Mar, Bipolar I disorder, most rec ent episode (or current) mixed, moderate F31.62 [place] [address] [place] [id number] [address] [place] [address] Feb, Bipolar I disorder, most rec ent episode (or current) mixed, moderate F31.62 [place] [address] [facility] [id number] [address] [place] [address] Feb, Chronic pain G89.29 [facility] [address] [facility] [id number] [address] [place] [phone] Feb, Decubitus ulcer of right josselin t, stage 3 L89.893 and BMI 50.0-59.9, adult Z68.43 [facility] [address] [place] [id number] [address] [place] [address] Feb, Bipolar I disorder, most rec ent episode (or current) mixed, moderate F31.62 [place] [address] [place] [id number] [address] [place] [address] Feb, [place] [address] [facility] [id number] [address] [place] [address] January, [place] [address] [place] [id number] [address] [place] [address] January, Chronic pain G89.29 [place] [address] [facility] [id number] [address] [place] [address] January, Bipolar I disorder, most rec ent episode (or current) mixed, moderate F31.62 [place] [address] [facility] [id number] [address] [place] [address] January, Bipolar I disorder, most rec ent episode (or current) mixed, moderate F31.62 [place] [address] [facility] [id number] [address] [place] [address] Dec, Bipolar I disorder, most rec ent episode (or current) mixed, moderate F31.62 and BMI 50.0-59.9, adult Z68.43 [place] [address] [facility] [id number] [address] [place] [address] Dec, Bipolar I disorder, most rec ent episode (or current) mixed, moderate F31.62 [place] [address] [place] [id number] [address] [place] [address] Dec, Chronic pain G89.29 [place] [address] [place] [id number] [address] [place] [address] Dec, DM neuro manif type II E11.4 9 ; Right flank pain R10.9 ; [facility] 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 Z79.891 ; Encounter for medication monitoring Z51.81 and BMI 50.0-59.9, adult Z68.43 [place] [address] [place] [id number] [address] [place] [address] Dec, Bipolar I disorder, most rec ent episode (or current) mixed, moderate F31.62 [place] [address] [place] [id number] [address] [place] [address] Nov, Bipolar I disorder, most rec ent episode (or current) mixed, moderate F31.62 [place] [address] [place] [id number] [address] [place] [address] Nov, Chronic pain G89.29 [facility] [address] [facility] [id number] [address] [place] [address] Nov, Bipolar I disorder, most rec ent episode (or current) mixed, moderate F31.62 [facility] [address] [facility] [id number] [address] [place] [address] Nov, Hypokalemia E87.6 [facility] [address] [place] [id number] [address] [place] [address] Nov, Bipolar I disorder, most rec ent episode (or current) mixed, moderate F31.62 [facility] [address] [place] [id number] [address] [place] [address] Oct, Chronic pain G89.29 [facility] [address] [place] [id number] [address] [place] [address] Oct, BMI 50.0-59.9, adult Z68.43 and Bipolar I disorder, most recent episode (or current) mixed, moderate F31.62 [facility] [address] [place] [id number] [address] [place] [address] Oct, Bipolar I disorder, most rec ent episode (or current) mixed, moderate F31.62 [facility] [address] [place] [id number] [address] [place] [address] Oct, [place] [address] [place] [id number] [address] [place] [address] Oct, Hypokalemia E87.6 [facility] [address] [place] [id number] [address] [place] [address] Oct, DM neuro manif type II E11.4 9 [facility] [address] [place] [id number] [address] [place] [address] Oct, Bipolar I disorder, most rec ent episode (or current) mixed, moderate F31.62 [place] [address] [place] [id number] [address] [place] [address] Oct, Bipolar I disorder, most rec ent episode (or current) mixed, moderate F31.62 [place] [address] [address] 14 Oct, 2017 Hyperkalemia E87.5 ; Falling R29.6 ; BMI 50.0-59.9, adult Z68.43 and Acute left ankle pain M25.572 [place] [address] [address] 08 Oct, 2017 DM neuro manif type II E11.4 9 [place] [address] [address] Oct, [place] [address] [address] Sep, Chronic pain G89.29 [place] [address] [address] Sep, [place] [address] [address] Sep, Bilateral primary osteoarthr itis of knee M17.[address] [address] Sep, Generalized edema R60.1 [place] [address] [id number] 16 Sep, 2017 Bipolar I disorder, most rec ent episode (or current) mixed, moderate F31.62 [place] [address] [address] 15 Sep, 2017 Hypoxia R09.02 ; Other hyper volemia E87.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 ; Anemia of chronic illness D63.8 and BMI 50.0- 59.9, adult Z68.43 [place] [address] [address] Sep, [facility] [address] [id number] [address] [place] [address] Sep, Bipolar I disorder, most rec ent episode (or current) mixed, moderate F31.62 [facility] [address] [id number] [address] [place] [address] Aug, Chronic pain G89.29 [facility] [address] [id number] [address] [place] [address] Aug, Generalized edema R60.1 [facility] [address] [id number] [address] [place] [address] Aug, [facility] [address] [id number] [address] [place] [address] Aug, [facility] [address] [id number] [address] [place] [address] Aug, Bipolar I disorder, most rec ent episode (or current) mixed, moderate F31.62 [facility] [address] [id number] [address] [place] [address] 07 Aug, 2017 Bipolar I disorder, most rec ent episode (or current) mixed, moderate F31.62 [facility] [address] [id number] [address] [place] [address] 04 Aug, 2017 Chronic pain G89.29 [facility] [address] [id number] [address] [place] [address] Jul, Bipolar I disorder, most rec ent episode (or current) mixed, moderate F31.62 [facility] [address] [id number] [address] [place] [address] Jul, Bipolar I disorder, most rec ent episode (or current) mixed, moderate F31.62 and BMI 60.0-69.9, adult Z68.44 [facility] [address] [id number] [address] [place] [phone] 16 Jul, 2017 Bipolar I disorder, most rec ent episode (or current) mixed, moderate F31.62 [facility] [address] [facility] [id number] [address] [place] [address] Jul, Chronic pain G89.29 [facility] [address] [facility] [id number] [address] [place] [address] Jul, Bipolar I disorder, most rec ent episode (or current) mixed, moderate F31.62 [facility] [address] [facility] [id number] [address] [place] [address] Jun, Polyneuropathy associated wi th underlying disease G63 and Diabetes E11.9 [facility] [address] [facility] [id number] [address] [place] [address] Jun, Bipolar I disorder, most rec ent episode (or current) mixed, moderate F31.62 [facility] [address] [facility] [id number] [address] [place] [address] Jun, Chronic pain G89.29 [facility] [address] [facility] [id number] [address] [place] [address] May, Bipolar I disorder, most rec ent episode (or current) mixed, moderate F31.62 [facility] [address] [facility] [id number] [address] [place] [address] May, Bipolar I disorder, most rec ent episode (or current) mixed, moderate F31.62 [facility] [address] [facility] [id number] [address] [place] [address] 20 May, 2017 Diabetic polyneuropathy asso ciated with type 2 diabetes mellitus E11.42 [facility] [address] [id number] [address] [place] [address] 18 May, 2017 Bipolar I disorder, most rec ent episode (or current) mixed, moderate F31.62 [facility] [address] [facility] [id number] [address] [place] [phone] 13 May, 2017 Bipolar I disorder, most rec ent episode (or current) mixed, moderate F31.62 [facility] [address] [id number] [address] [place] [address] May, Chronic pain G89.29 [facility] [address] [id number] [address] [place] [phone] Apr, Bipolar I disorder, most rec ent episode (or current) mixed, moderate F31.62 [facility] [address] [id number] [address] [place] [address] Apr, [facility] [address] [id number] [address] [place] [address] Apr, Chronic pain G89.29 and DM n euro manif type II E11.49 [facility] [address] [id number] [address] [place] [address] Apr, [facility] [address] [id number] [address] [place] [phone] Apr, Bipolar I disorder, most rec ent episode (or current) mixed, moderate F31.62 [facility] [address] [facility] [id number] [address] [place] [id number] Apr, Chronic pain G89.29 [facility] [address] [facility] [id number] [address] [place] [phone] Apr, Iliotibial band syndrome, le ft M76.32 [facility] [address] [facility] [id number] [address] [place] [phone] Apr, Bipolar I disorder, most rec ent episode (or current) mixed, moderate F31.62 [facility] [address] [facility] [id number] [address] [place] [phone] Mar, Bipolar I disorder, most rec ent episode (or current) mixed, moderate F31.62 [facility] [address] [facility] [id number] [address] [place] [phone] Mar, Bipolar I disorder, most rec ent episode (or current) mixed, moderate F31.62 [facility] [address] [place] [id number] [address] [place] [phone] Mar, [facility] [address] [id number] [address] [place] [phone] Mar, Bipolar I disorder, most rec ent episode (or current) mixed, moderate F31.62 [facility] [address] [id number] [address] [place] [phone] Mar, Chronic pain G89.29 [facility] [address] [id number] [address] [place] [phone] Mar, Bipolar I disorder, most rec ent episode (or current) mixed, moderate F31.62 [facility] [address] [id number] [address] [place] [phone] Mar, Bipolar I disorder, most rec ent episode (or current) mixed, moderate F31.62 [facility] [address] [facility] [id number] [address] [place] [phone] Mar, Acute pain of left knee M25. 562 ; Left hip pain M25.552 ; Generalized edema R60.1 and Tongue swelling R22.0 [facility] [address] [id number] [address] [place] [phone] Mar, [facility] [address] [facility] [id number] [address] [place] [address] Feb, Chronic pain G89.29 [facility] [address] [facility] [id number] [address] [place] [address] Feb, Diabetes E11.9 [facility] [address] [id number] [address] [place] [phone] January, Chronic pain G89.29 [facility] [address] [id number] [address] [place] [phone] January, [facility] [address] [facility] [id number] [address] [place] [phone] January, Bipolar I disorder, most rec ent episode (or current) mixed, moderate F31.62 [facility] [address] [id number] [address] [place] [phone] Dec, Bipolar I disorder, most rec ent episode (or current) mixed, moderate F31.62 [facility] [address] [id number] [address] [place] [phone] Dec, Chronic pain G89.29 [facility] [address] [facility] [id number] [address] [place] [phone] Dec, Bipolar I disorder, most rec ent episode (or current) mixed, moderate F31.62 [facility] [address] [facility] [id number] [address] [place] [phone] Dec, Diabetes E11.9 ; Essential h ypertension I10 ; Chronic pain G89.29 and Morbid obesity E66.01 [facility] [address] [facility] [id number] [address] [place] [phone] Dec, [facility] [address] [facility] [id number] [address] [place] [phone] Dec, Bipolar I disorder, most rec ent episode (or current) mixed, moderate F31.62 [facility] [address] [facility] [id number] [address] [place] [phone] Dec, Bipolar I disorder, most rec ent episode (or current) mixed, moderate F31.62 [facility] [address] [facility] [id number] [address] [place] [id number] Nov, Chronic pain G89.29 [facility] [address] [id number] [address] [place] [phone] Nov, Bipolar I disorder, most rec ent episode (or current) mixed, moderate F31.62 [facility] [address] [facility] [id number] [address] [place] [phone] Nov, [facility] [address] [facility] [id number] [address] [place] [phone] Nov, Bipolar I disorder, most rec ent episode (or current) mixed, moderate F31.62 [facility] [address] [facility] [id number] [address] [place] [phone] Nov, Bipolar I disorder, most rec ent episode (or current) mixed, moderate F31.62 [facility] [address] [facility] [id number] [address] [place] [phone] Nov, [facility] [address] [place] [id number] [address] [place] [phone] Nov, [facility] [address] [facility] [id number] [address] [place] [phone] Nov, [facility] [address] [facility] [id number] [address] [place] [phone] Oct, Chronic pain G89.29 [facility] [address] [place] [id number] [address] [place] [id number] Oct, Bipolar I disorder, most rec ent episode (or current) mixed, moderate F31.62 [facility] [address] [place] [id number] [address] [place] [phone] Oct, [facility] [address] 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 [id number] [address] [place] [phone] Oct, [facility] [address] [facility] [id number] [address] [place] [phone] Oct, Diabetes E11.9 [facility] [address] [facility] [id number] [address] [place] [phone] Oct, Bipolar I disorder, most rec ent episode (or current) mixed, moderate F31.62 [facility] [address] [facility] [id number] [address] [place] [phone] Sep, Chronic pain G89.29 [facility] [address] [facility] [id number] [address] [place] [address] Sep, Chronic pain G89.29 [facility] [address] [facility] [id number] [address] [place] [phone] Aug, Chronic pain G89.29 [facility] [address] [facility] [id number] [address] [place] [phone] Jul, [facility] [address] [facility] [id number] [address] [place] [phone] Jul, Diabetes E11.9 [facility] [address] [facility] [id number] [address] [place] [phone] Jul, Chronic pain G89.29 [facility] [address] [facility] [id number] [address] [place] [phone] Jul, Bipolar I disorder, most rec ent episode (or current) mixed, moderate F31.62 [facility] [address] [place] [id number] [address] [place] [phone] Jun, Bipolar I disorder, most rec ent episode (or current) mixed, moderate F31.62 [facility] [address] [facility] [id number] [address] [place] [phone] Jun, [facility] [address] [place] [id number] [address] [place] [phone] Jun, Bipolar I disorder, most rec ent episode (or current) mixed, moderate F31.62 [facility] [address] [facility] [id number] [address] [place] [phone] 30 May, 2016 Insomnia, unspecified type G 47.00 [facility] [address] [facility] [id number] [address] [place] [phone] 22 May, 2016 Bipolar I disorder, most rec ent episode (or current) mixed, moderate F31.62 [facility] [address] [facility] [id number] [address] [place] [phone] 14 May, 2016 [facility] [address] [place] [id number] [address] [place] [phone] May, Bipolar I disorder, most rec ent episode (or current) mixed, moderate F31.62 [facility] [address] [facility] [id number] [address] [place] [phone] May, Diabetes E11.9 and Essential hypertension I10 [facility] [address] [facility] [id number] [address] [place] [address] Apr, Chronic pain G89.29 [facility] [address] [facility] [id number] [address] [place] [phone] Apr, Bipolar I disorder, most rec ent episode (or current) mixed, moderate F31.62 [place] [address] [facility] [id number] [address] [place] [phone] Apr, [place] [address] [place] [id number] [address] [place] [address] Apr, [place] [address] [facility] [id number] [address] [place] [phone] Mar, Chronic pain G89.29 ; Headac he, unspecified headache type R51 ; Neuropathy G62.9 ; Pain of right hip joint M25.551 and Essential hypertension I10 [place] [address] [facility] [id number] [address] [place] [address] Mar, Chronic pain G89.29 [place] [address] [facility] [id number] [address] [place] [phone] Mar, Bipolar I disorder, most rec ent episode (or current) mixed, moderate F31.62 [place] [address] [facility] [id number] [address] [place] [phone] Feb, Bipolar I disorder, most rec ent episode (or current) mixed, moderate F31.62 and Insomnia, unspecified type G47.00 [facility] [address] [id number] [address] [place] [address] Feb, Chronic pain G89.29 [facility] [address] [facility] [id number] [address] [place] [phone] Feb, Bipolar I disorder, most rec ent episode (or current) mixed, moderate F31.62 [facility] [address] [id number] [address] [place] [phone] January, Bipolar I disorder, most rec ent episode (or current) mixed, moderate F31.62 [facility] [address] [id number] [address] [place] [address] January, Chronic pain G89.29 [facility] [address] [id number] [address] [place] [phone] January, Chronic pain G89.29 and Esse ntial hypertension I10 [facility] [address] [id number] [address] [place] [phone] January, Bipolar I disorder, most rec ent episode (or current) mixed, moderate F31.62 [facility] [address] [id number] [address] [place] [phone] Dec, [facility] [address] [id number] [address] [place] [phone] Dec, [facility] [address] [id number] [address] [place] [phone] Dec, [facility] [address] [id number] [address] [place] [phone] Dec, [facility] [address] [id number] [address] [place] [phone] Nov, Reactive airway disease J45. 909 [facility] [address] [id number] [address] [place] [phone] Nov, [facility] [address] [id number] [address] [place] [phone] Nov, [facility] [address] [id number] [address] [place] [phone] Nov, [facility] [address] [id number] [address] [place] [address] Nov, [place] [address] [address] Nov, Onychomycosis B35.1 ; Hammer toe M20.40 ; [place] or callus L84 and DM neuro manif type II E11.49 [place] [address] [phone] Nov, Chronic pain G89.29 ; Leukoc ytosis D72.829 and Diabetes E11.9 [place] [address] [address] Nov, [place] [address] [phone] Oct, Bronchitis J40 [place] [address] [address] Oct, [place] [address] [phone] Oct, [place] [address] [id number] Oct, Mastoiditis, unspecified lat erality H70.90 and Type 2 diabetes mellitus with complication E11.8 [place] [address] [address] Sep, [place] [address] [address] Sep, Dysuria R30.0 ; Cough R05 ; Benign prostatic hyperplasia with lower urinary tract symptoms, unspecified morphology N40.1 ; Hypokalemia E87.6 and Eustachian tube dysfunction, unspecified laterality H69.[address] [id number] Sep, Moderate mixed bipolar I dis order F31.[address] [address] Sep, Hypokalemia E87.6 [facility] [address] [id number] [address] [place] [phone] Sep, [facility] [address] [facility] [id number] [address] [place] [phone] Sep, Upper respiratory tract infe ction, unspecified type J06.9 [facility] [address] [id number] [address] [place] [phone] Aug, [facility] [address] [id number] [address] [place] [phone] Aug, Dysuria R30.0 [facility] [address] [id number] [address] [place] [phone] Aug, [facility] [address] [id number] [address] [place] [phone] Jul, [facility] [address] [id number] [address] [place] [phone] Jul, [facility] [address] [id number] [address] [place] [phone] Jul, [facility] [address] [facility] [id number] [address] [place] [phone] Jul, [facility] [address] [id number] [address] [place] [phone] Jun, [facility] [address] [id number] [address] [place] [phone] Jun, [facility] [address] [id number] [address] [place] [phone] Jun, [facility] [address] [id number] [address] [place] [phone] May, [facility] [address] [facility] [id number] [address] [place] [phone] May, Bipolar I disorder, most rec ent episode (or current) mixed, moderate 296.62 [facility] [address] [facility] [id number] [address] [place] [address] May, [facility] [address] [facility] [id number] [address] [place] [phone] May, Bipolar I disorder, most rec ent episode (or current) mixed, moderate 296.62 and Major depressive disorder, recurrent episode, severe, specified as with psychotic behavior 296.34 [facility] [address] [facility] [id number] [address] [place] [phone] May, Bipolar I disorder, most rec ent episode (or current) mixed, moderate 296.62 [facility] [address] [facility] [id number] [address] [place] [phone] May, [facility] [address] [place] [id number] [address] [place] [phone] Apr, [facility] [address] [facility] [id number] [address] [place] [phone] Apr, [facility] [address] [place] [id number] [address] [place] [id number] Apr, Unspecified disorder of kidn ey and ureter 593.9 and Diabetes mellitus type 2, uncontrolled 250.02 [facility] [address] [place] [id number] [address] [place] [phone] Apr, [facility] [address] [facility] [id number] [address] [place] [phone] Apr, [facility] [address] [facility] [id number] [address] [place] [phone] Apr, [facility] [address] [facility] [id number] [address] [place] [phone] Apr, [facility] [address] [facility] [id number] [address] [place] [phone] Apr, Diabetes mellitus type II, u ncontrolled 250.02 [facility] [address] [place] [id number] [address] [place] [phone] Apr, [facility] [address] [facility] [id number] [address] [place] [phone] Mar, [facility] [address] [place] [id number] [address] [place] [phone] Mar, [facility] [address] [place] [id number] [address] [place] [id number] Mar, [facility] [address] [place] [id number] [address] [place] [phone] Mar, Major depressive disorder, r ecurrent episode, severe, specified as with psychotic behavior 296.34 and Bipolar I disorder, most recent episode (or current) mixed, moderate 296.62 [facility] [address] [place] [id number] [address] [place] [address] Mar, Diabetes 250.00 ; Anuria 788 .5 ; Nausea and vomiting 787.01 and Diarrhea 787.91 [facility] [address] [place] [id number] [address] [place] [address] Mar, Diabetes 250.00 [facility] [address] [place] [id number] [address] [place] [address] Mar, [facility] [address] [place] [id number] [address] [place] [address] Mar, Diabetes 250.00 [facility] [address] [place] [id number] [address] [place] [phone] Mar, [facility] [address] [place] [id number] [address] [place] [phone] Mar, [facility] [address] [place] [id number] [address] [place] [phone] Mar, [facility] [address] [place] [id number] [address] [place] [phone] Mar, [facility] [address] [place] [id number] [address] [place] [address] Mar, Bipolar I disorder, most rec ent episode (or current) mixed, moderate 296.62 and Major depressive disorder, recurrent episode, severe, specified as with psychotic behavior 296.[address] [address] Mar, Magnesium deficiency 275.2 ; Hypokalemia 276.8 ; Nausea & vomiting 787.01 and Diabetes mellitus type 2, uncontrolled 250.[address] [address] Feb, [address] [address] Feb, Bipolar I disorder, most rec ent episode (or current) mixed, moderate 296.[address] [id number] Feb, Nausea and vomiting 787.01 ; Left elbow pain 719.42 ; Anuria 788.5 and Diabetes 250.[address] [id number] Feb, [address] [address] Feb, Hypopotassemia 276.8 and Hyp okalemia 276.[address] [address] Feb, Hypopotassemia 276.8 and Hyp okalemia 276.[address] [address] Feb, Seborrheic keratoses 702.[address] [address] Feb, Hypopotassemia 276.8 and Low magnesium levels 275.[address] [address] January, [address] [address] January, [facility] [address] [id number] [address] [place] [address] January, [facility] [address] [id number] [address] [place] [phone] January, Scalp lesion 709.9 [facility] [address] [id number] [address] [place] [phone] January, [facility] [address] [id number] [address] [place] [address] Dec, Tear of medial cartilage or meniscus of knee, current 836.0 and 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 [facility] [address] [id number] [address] [place] [phone] Dec, [facility] [address] [id number] [address] [place] [phone] Dec, [facility] [address] [id number] [address] [place] [phone] Dec, Squamous cell carcinoma, 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 [facility] [address] [id number] [address] [place] [phone] Dec, [facility] [address] [id number] [address] [place] [phone] Dec, [facility] [address] [id number] [address] [place] [phone] Nov, [facility] [address] [id number] [address] [place] [phone] Nov, [facility] [address] [id number] [address] [place] [phone] Nov, [facility] [address] [id number] [address] [place] [phone] Nov, [facility] [address] [id number] [address] [place] [id number] Nov, [facility] [address] [id number] [address] [place] [address], [place] [id number] Nov, [facility] [address] [id number] [address] [place] [address], [place] [id number] Nov, 2014 [facility] [address] [id number] [address] [place] [address], [place] [id number] Nov, 2014 [facility] [address] [id number] [address] [place] [address], [place] [address] Nov, 2014 [facility] [address] [id number] [address] [place] [address], [place] [id number] Nov, [facility] [address] [id number] [address] [place] [address], [place] [address] Nov, [facility] [address] [id number] [address] [place] [address], [place] [address] Nov, [facility] [address] [id number] [address] [place] [id number] Oct, 2014 [facility] [address] [id number] [address] [place] [address], [place] [address] Oct, 2014 [facility] [address] [id number] [address] [place] [id number] Oct, 2014 [facility] [address] [id number] [address] [place] [id number] Oct, 2014 [facility] [address] [id number] [address] [place] [id number] Oct, 2014 [facility] [address] [id number] [address] [place] [address], [place] [address] Oct, 2014 [facility] [address] [id number] [address] [place] [id number] Oct, 2014 [facility] [address] [id number] [address] [place] [id number] Oct, 2014 [facility] [address] [id number] [address] [place] [address], [place] [address] Oct, [facility] [address] [id number] [address] [place] [address], [place] [id number] Sep, [facility] [address] [id number] [address] [place] [address], [place] [address] Sep, [facility] [address] [id number] [address] [place] [address], [place] [address] Sep, [facility] [address] [id number] [address] [place] [address], [place] [address] Sep, [facility] [address] [id number] [address] [place] [address], [place] [address] Sep, [facility] [address] [id number] [address] [place] [address], [place] [address] Sep, [facility] [address] [id number] [address] [place] [address], [place] [address] Sep, [facility] [address] [id number] [address] [place] [address], [place] [address] Sep, [facility] [address] [id number] [address] [place] [address], [place] [address] Sep, [facility] [address] [id number] [address] [place] [address], [place] [address] Sep, [facility] [address] [id number] [address] [place] [address], [place] [address] Sep, [facility] [address] [id number] [address] [place] [address], [place] [address] Sep, [facility] [address] [id number] [address] [place] [address], [place] [address] Sep, [facility] [address] [id number] [address] [place] [address], [place] [address] Sep, [facility] [address] [id number] [address] [place] [address], [place] [address] Sep, [facility] [address] [id number] [address] [place] [address], [place] [address] Sep, [facility] [address] [id number] [address] [place] [address], [place] [address] Aug, [facility] [address] [id number] [address] [place] [address], [place] [address] Aug, [facility] [address] [id number] [address] [place] [address], [place] [address] Aug, [facility] [address] [id number] [address] [place] [address], [place] [address] Aug, [facility] [address] [id number] [address] [place] [address], [place] [address] Aug, [facility] [address] [id number] [address] [place] [address], [place] [address] Aug, [facility] [address] [id number] [address] [place] [address], [place] [address] Aug, [facility] [address] [id number] [address] [place] [address], [place] [address] Aug, [facility] [address] [id number] [address] [place] [address], [place] [address] Aug, [facility] [address] [id number] [address] [place] [address], [place] [address] Aug, [facility] [address] [id number] [address] [place] [address], [place] [address] Aug, [facility] [address] [place] [id number] Aug, [facility] [address] [id number] [address] [place] [address], [place] [address] Aug, [facility] [address] [id number] [address] [place] [address], [place] [address] Aug, [facility] [address] [id number] [address] [place] [address], [place] [address] Aug, [facility] [address] [id number] [address] [place] [address], [place] [address] Aug, [facility] [address] [id number] [address] [place] [address], [place] [address] Aug, [facility] [address] [id number] [address] [place] [address], [place] [address] Aug, [facility] [address] [id number] [address] [place] [address], [place] [address] Aug, [facility] [address] [id number] [address] [place] [address], [place] [address] Aug, [facility] [address] [id number] [address] [place] [address], [place] [address] Aug, [facility] [address] [id number] [address] [place] [address], [place] [address] Aug, [facility] [address] [id number] [address] [place] [address], [place] [address] Aug, [facility] [address] [id number] [address] [place] [address], [place] [address] Aug, [facility] [address] [id number] [address] [place] [address], [place] [address] Aug, [facility] [address] [id number] [address] [place] [address], [place] [address] Aug, [facility] [address] [id number] [address] [place] [address], [place] [address] Aug, [facility] [address] [id number] [address] [place] [address], [place] [address] Aug, [facility] [address] [id number] [address] [place] [address], [place] [address] Aug, [facility] [address] [id number] [address] [place] [address], [place] [address] Aug, [facility] [address] [id number] [address] [place] [address], [place] [address] Jul, [facility] [address] [id number] [address] [place] [address], [place] [address] Jul, [facility] [address] [id number] [address] [place] [address], [place] [address] Jul, [facility] [address] [id number] [address] [place] [address], [place] [address] Jul, [facility] [address] [id number] [address] [place] [address], [place] [address] Jul, [facility] [address] [id number] [address] [place] [address], [place] [address] Jul, [facility] [address] [id number] [address] [place] [address], [place] [address] Jul, [facility] [address] [id number] [address] [place] [address], [place] [address] Jul, [facility] [address] [id number] [address] [place] [address], [place] [address] Jul, [facility] [address] [id number] [address] [place] [address], [place] [address] Jul, [facility] [address] [id number] [address] [place] [address], [place] [address] Jun, [facility] [address] [id number] [address] [place] [address], [place] [address] Jun, [facility] [address] [id number] [address] [place] [address], [place] [address] Jun, [facility] [address] [id number] [address] [place] [address], [place] [address] 16 Jun, 2014 [facility] [address] [id number] [address] [place] [address], [place] [address] 15 Jun, 2014 [facility] [address] [id number] [address] [place] [address], [place] [address] 15 Jun, 2014 [facility] [address] [id number] [address] [place] [address], [place] [address] 05 Jun, 2014 [facility] [address] [id number] [address] [place] [address], [place] [address] Jun, [facility] [address] [id number] [address] [place] [address], [place] [address] Jun, [facility] [address] [id number] [address] [place] [address], [place] [address] Jun, [facility] [address] [id number] [address] [place] [address], [place] [address] 29 May, 2014 [facility] [address] [id number] [address] [place] [address], [place] [address] 29 May, 2013 [facility] [address] [id number] [address] [place] [address], [place] [address] 26 May, 2013 [facility] [address] [id number] [address] [place] [address], [place] [address] 26 May, 2013 [facility] [address] [id number] [address] [place] [address], [place] [address] 17 May, 2013 [facility] [address] [id number] [address] [place] [address], [place] [address] 17 May, 2013 [facility] [address] [id number] [address] [place] [address], [place] [address] 15 May, 2013 [facility] [address] [id number] [address] [place] [address] 15 May, 2013 [facility] [address] [id number] [address] [place] [address], [place] [address] 15 May, 2013 [facility] [address] [id number] [address] [place] [address], [place] [address] 15 May, 2013 [facility] [address] [id number] [address] [place] [address], [place] [address] 10 May, 2013 [facility] [address] [id number] [address] [place] [address], [place] [address] May, [facility] [address] [id number] [address] [place] [address], [place] [address] May, [facility] [address] [id number] [address] [place] [address], [place] [address] May, [facility] [address] [id number] [address] [place] [address], [place] [address] May, [facility] [address] [id number] [address] [place] [address], [place] [address] May, [facility] [address] [id number] [address] [place] [address], [place] [address] Apr, [facility] [address] [id number] [address] [place] [address], [place] [address] Apr, [facility] [address] [id number] [address] [place] [address], [place] [address] Apr, [facility] [address] [id number] [address] [place] [address], [place] [address] Apr, [facility] [address] [id number] [address] [place] [address], [place] [address] Apr, [facility] [address] [id number] [address] [place] [address], [place] [address] Apr, [facility] [address] [id number] [address] [place] [address], [place] [address] Apr, [facility] [address] [id number] [address] [place] [address], [place] [address] Apr, [facility] [address] [id number] [address] [place] [address], [place] [address] Apr, [facility] [address] [id number] [address] [place] [address], [place] [address] Apr, [facility] [address] [id number] [address] [place] [address], [place] [address] Apr, [facility] [address] [id number] [facility] [place] [address] Apr, [facility] [address] [id number] [facility] [place] [address] Apr, [facility] [address] [id number] [address] [place] [address] Apr, [facility] [address] [id number] [address] [place] [address] Apr, [facility] [address] [id number] [address] [place] [address] Mar, [facility] [address] [id number] [facility] [place] [address] Mar, [facility] [address] [id number] [address] [place] [address], [place] [address] Mar, [facility] [address] [id number] [address] [place] [address], [place] [address] Mar, [facility] [address] [id number] [address] [place] [address], [place] [address] Mar, [facility] [address] [id number] [address] [place] [address], [place] [address] Mar, [facility] [address] [id number] [address] [place] [address], [place] [address] Mar, [facility] [address] [id number] [address] [place] [address], [place] [address] Mar, [facility] [address] [id number] [address] [place] [address], [place] [address] Mar, [facility] [address] [id number] [address] [place] [address], [place] [address] Mar, [facility] [address] [id number] [address] [place] [address], [place] [address] Mar, [facility] [address] [id number] [address] [place] [address], [place] [address] Mar, 2013 [facility] [address] [id number] [facility] [place] [address] Mar, 2013 [facility] [address] [id number] [address] [place] [address] Mar, 2013 [facility] [address] [id number] [address] [place] [address] Mar, 2013 [facility] [address] [id number] [address] [place] [address], [place] [address] Mar, 2013 [facility] [address] [id number] [address] [place] [address], [place] [address] Mar, [facility] [address] [id number] [address] [place] [address], [place] [address] Mar, [facility] [address] [id number] [address] [place] [address], [place] [address] Feb, [facility] [address] [id number] [address] [place] [address], [place] [address] Feb, [facility] [address] [id number] [address] [place] [address], [place] [address] Feb, [facility] [address] [id number] [address] [place] [address], [place] [address] Feb, [facility] [address] [id number] [address] [place] [address], [place] [address] Feb, [facility] [address] [id number] [address] [place] [address], [place] [address] Feb, [facility] [address] [id number] [address] [place] [address], [place] [address] Feb, [facility] [address] [id number] [address] [place] [address], [place] [address] Feb, [facility] [address] [id number] [address] [place] [address], [place] [address] Feb, [facility] [address] [id number] [facility] [place] [address] Feb, [facility] [address] [id number] [address] [place] [address], [place] [address] Feb, [facility] [address] [id number] [facility] [place] [address] Feb, [facility] [address] [id number] [address] [place] [address], [place] [address] Feb, [facility] [address] [id number] [address] [place] [address], [place] [address] Feb, [facility] [address] [id number] [address] [place] [address], [place] [address] January, [facility] [address] [id number] [address] [place] [address], [place] [address] January, [facility] [address] [id number] [address] [place] [address], [place] [address] January, [facility] [address] [id number] [address] [place] [address], [place] [address] January, [facility] [address] [id number] [address] [place] [address], [place] [address] January, [facility] [address] [id number] [address] [place] [address], [place] [address] January, [facility] [address] [id number] [address] [place] [address], [place] [address] January, [facility] [address] [id number] [address] [place] [address], [place] [address] January, [facility] [address] [id number] [address] [place] [address], [place] [address] January, [facility] [address] [id number] [address] [place] [address], [place] [address] January, [facility] [address] [id number] [address] [place] [address], [place] [address] January, [facility] [address] [id number] [address] [place] [address] January, [facility] [address] [id number] [address] [place] [address], [place] [address] January, [facility] [address] [id number] [address] [place] [address], [place] [address] January, [facility] [address] [id number] [address] [place] [address], [place] [address] Dec, [facility] [address] [id number] [address] [place] [address], [place] [address] Dec, [facility] [address] [id number] [address] [place] [address], [place] [address] Dec, [facility] [address] [id number] [address] [place] [address], [place] [address] Dec, [facility] [address] [id number] [address] [place] [address], [place] [address] Dec, [facility] [address] [id number] [address] [place] [address], [place] [address] Dec, [facility] [address] [id number] [address] [place] [address], [place] [address] Dec, [facility] [address] [id number] [address] [place] [address], [place] [address] Dec, [facility] [address] [id number] [address] [place] [address], [place] [address] Dec, [facility] [address] [id number] [address] [place] [address], [place] [address] Dec, [facility] [address] [id number] [address] [place] [address], [place] [address] Nov, [facility] [address] [id number] [address] [place] [address], [place] [address] Nov, [facility] [address] [id number] [address] [place] [address], [place] [address] Nov, [facility] [address] [id number] [address] [place] [address], [place] [address] Nov, [facility] [address] [id number] [address] [place] [address], [place] [address] Nov, [facility] [address] [id number] [address] [place] [address], [place] [address] Nov, [facility] [address] [id number] [address] [place] [address], [place] [address] Nov, [facility] [address] [id number] [address] [place] [address], [place] [address] Nov, [facility] [address] [id number] [address] [place] [address], [place] [address] Nov, [facility] [address] [id number] [address] [place] [address], [place] [address] Nov, [facility] [address] [id number] [address] [place] [address], [place] [address] Oct, [facility] [address] [id number] [address] [place] [address], [place] [address] Oct, [facility] [address] [id number] [address] [place] [address], [place] [address] Oct, [facility] [address] [id number] [address] [place] [address], [place] [address] Oct, [facility] [address] [id number] [address] [place] [address], [place] [address] Oct, [facility] [address] [id number] [address] [place] [address], [place] [address] Oct, [facility] [address] [id number] [address] [place] [address], [place] [address] 14 Oct, 2013 [facility] [address] [id number] [address] [place] [address], [place] [address] Oct, [facility] [address] [id number] [address] [place] [address], [place] [address] Oct, [facility] [address] [id number] [address] [place] [address], [place] [address] Oct, [facility] [address] [id number] [address] [place] [address], [place] [address] Oct, [facility] [address] [id number] [address] [place] [address], [place] [address] Oct, [facility] [address] [id number] [address] [place] [address], [place] [address] Oct, [facility] [address] [id number] [address] [place] [address], [place] [address] Oct, [facility] [address] [id number] [address] [place] [address], [place] [address] Sep, [facility] [address] [id number] [address] [place] [address], [place] [address] Sep, [facility] [address] [id number] [address] [place] [address], [place] [address] Sep, [facility] [address] [id number] [address] [place] [address], [place] [address] Sep, [facility] [address] [id number] [address] [place] [address], [place] [address] Sep, [facility] [address] [id number] [address] [place] [address], [place] [address] Sep, [facility] [address] [id number] [address] [place] [address], [place] [address] Sep, [facility] [address] [id number] [address] [place] [address], [place] [address] Sep, [facility] [address] [id number] [address] [place] [address], [place] [address] Sep, [facility] [address] [id number] [address] [place] [address], [place] [address] 08 Sep, 2013 [facility] [address] [id number] [address] [place] [address], [place] [address] 10 Aug, 2013 [facility] [address] [id number] [address] [place] [address], [place] [address] Aug, [facility] [address] [id number] [address] [place] [address], [place] [address] Jul, [facility] [address] [id number] [address] [place] [address], [place] [address] Jul, [facility] [address] [id number] [address] [place] [address], [place] [address] Jul, [facility] [address] [id number] [address] [place] [address], [place] [address] Jul, [facility] [address] [id number] [address] [place] [address], [place] [address] Jul, [facility] [address] [id number] [address] [place] [address], [place] [address] Jul, [facility] [address] [id number] [address] [place] [address], [place] [address] Jul, [facility] [address] [id number] [address] [place] [address], [place] [address] Jul, [facility] [address] [id number] [address] [place] [address], [place] [address] Jul, [facility] [address] [id number] [address] [place] [address], [place] [address] Jul, [facility] [address] [id number] [address] [place] [address], [place] [address] Jul, [facility] [address] [id number] [address] [place] [address], [place] [address] Jul, [facility] [address] [id number] [address] [place] [address], [place] [address] Jul, [facility] [address] [id number] [address] [place] [address], [place] [address] 05 Jul, 2012 [facility] [address] [id number] [address] [place] [address], [place] [address] Jul, 2012 [facility] [address] [id number] [address] [place] [address], [place] [address] Jul, 2012 [facility] [address] [id number] [address] [place] [address], [place] [address] Jul, 2012 [facility] [address] [id number] [address] [place] [address], [place] [address] Jul, 2012 [facility] [address] [id number] [address] [place] [address], [place] [address] Jul, [facility] [address] [id number] [address] [place] [address], [place] [address] Jun, 2012 [facility] [address] [id number] [address] [place] [address], [place] [address] 16 Jun, 2012 [facility] [address] [id number] [address] [place] [address], [place] [address] 16 Jun, 2012 [facility] [address] [id number] [address] [place] [address], [place] [address] 16 Jun, 2012 [facility] [address] [id number] [address] [place] [address], [place] [address] 16 Jun, 2012 [facility] [address] [id number] [address] [place] [address], [place] [id number] 16 Jun, 2012 [facility] [address] [id number] [address] [place] [address], [place] [address] 10 Jun, 2013 [facility] [address] [id number] [address] [place] [address], [place] [address] 10 Jun, 2012 [facility] [address] [id number] [address] [place] [address] 09 Jun, 2012 [facility] [address] [id number] [address] [place] [address] Jun, [facility] [address] [id number] [address] [place] [address], [place] [address] Jun, [facility] [address] [id number] [address] [place] [address], [place] [address] May, [facility] [address] [id number] [address] [place] [address], [place] [address] May, [facility] [address] [id number] [address] [place] [address], [place] [address] May, 2012 [facility] [address] [id number] [address] [place] [address], [place] [address] 17 May, 2013 [facility] [address] [id number] [address] [place] [address], [place] [address] May, [facility] [address] [id number] [address] [place] [address], [place] [address] May, [facility] [address] [id number] [address] [place] [address], [place] [address] May, [facility] [address] [id number] [address] [place] [address], [place] [address] May, [facility] [address] [id number] [address] [place] [address], [place] [address] Apr, [facility] [address] [id number] [address] [place] [address], [place] [address] Apr, [facility] [address] [id number] [address] [place] [address], [place] [address] Apr, [facility] [address] [id number] [address] [place] [address], [place] [address] Apr, [facility] [address] [id number] [address] [place] [address], [place] [address] Apr, [facility] [address] [id number] [address] [place] [address], [place] [address] Mar, [facility] [address] [id number] [address] [place] [address], [place] [address] Mar, [facility] [address] [id number] [address] [place] [address], [place] [address] Mar, [facility] [address] [id number] [address] [place] [address], [place] [address] Mar, [facility] [address] [id number] [address] [place] [address], [place] [address] Mar, [facility] [address] [id number] [address] [place] [address], [place] [address] Mar, [facility] [address] [id number] [address] [place] [address], [place] [address] Mar, [facility] [address] [id number] [address] [place] [address], [place] [address] Mar, [facility] [address] [id number] [address] [place] [address], [place] [address] Feb, [facility] [address] [id number] [address] [place] [address], [place] [address] Feb, [facility] [address] [id number] [address] [place] [address], [place] [address] January, [facility] [address] [id number] [address] [place] [address], [place] [address] January, [facility] [address] [id number] [address] [place] [address], [place] [address] Dec, [facility] [address] [id number] [address] [place] [address], [place] [address] Dec, [facility] [address] [id number] [address] [place] [address], [place] [address] Nov, [facility] [address] [id number] [address] [place] [address], [place] [address] Nov, [facility] [address] [id number] [address] [place] [address], [place] [address] Nov, [facility] [address] [id number] [address] [place] [address], [place] [address] Nov, [facility] [address] [id number] [address] [place] [address], [place] [address] Oct, [facility] [address] [id number] [address] [place] [address], [place] [address] Oct, [facility] [address] [id number] [address] [place] [address], [place] [address] Oct, [facility] [address] [id number] [address] [place] [address], [place] [address] Oct, [facility] [address] [id number] [address] [place] [address], [place] [address] 16 Oct, 2012 [facility] [address] [id number] [address] [place] [address], [place] [address] 14 Oct, 2012 [facility] [address] [id number] [address] [place] [address], [place] [address] 08 Oct, 2012 [facility] [address] [id number] [address] [place] [address], [place] [address] 07 Oct, 2012 [facility] [address] [id number] [address] [place] [address], [place] [address] 03 Oct, 2012 [facility] [address] [id number] [address] [place] [address], [place] [address] Sep, [facility] [address] [id number] [address] [place] [address], [place] [address] Sep, [facility] [address] [id number] [address] [place] [address], [place] [address] Sep, [facility] [address] [id number] [address] [place] [address], [place] [address] Sep, [facility] [address] [id number] [address] [place] [address], [place] [address] Sep, [facility] [address] [id number] [address] [place] [address], [place] [address] 10 Sep, 2012 [facility] [address] [id number] [address] [place] [address], [place] [address] Sep, [facility] [address] [id number] [address] [place] [address], [place] [address] Sep, [facility] [address] [id number] [address] [place] [address], [place] [address] Aug, [facility] [address] [id number] [address] [place] [address], [place] [address] Aug, [facility] [address] [id number] [address] [place] [address], [place] [address] Aug, [facility] [address] [id number] [address] [place] [address], [place] [address] Aug, [facility] [address] [id number] [address] [place] [address], [place] [address] Aug, [facility] [address] [id number] [address] [place] [address], [place] [address] Aug, [facility] [address] [id number] [address] [place] [address], [place] [address] Aug, [facility] [address] [id number] [address] [place] [address], [place] [address] Aug, [facility] [address] [id number] [address] [place] [address], [place] [address] Jul, [facility] [address] [id number] [address] [place] [address], [place] [address] Jul, [facility] [address] [id number] [address] [place] [address], [place] [address] Jul, [facility] [address] [id number] [address] [place] [address], [place] [address] Jul, [facility] [address] [id number] [address] [place] [address], [place] [address] Jul, [facility] [address] [id number] [address] [place] [address], [place] [address] Jul, [facility] [address] [id number] [address] [place] [address], [place] [address] Jun, [facility] [address] [id number] [address] [place] [address], [place] [address] Jun, [facility] [address] [id number] [address] [place] [address], [place] [address] Jun, [facility] [address] [id number] [address] [place] [address], [place] [address] Jun, [facility] [address] [id number] [address] [place] [address], [place] [address] Jun, [facility] [address] [id number] [address] [place] [address], [place] [address] Jun, [facility] [address] [id number] [address] [place] [address], [place] [address] Jun, [facility] [address] [id number] [address] [place] [address], [place] [address] Jun, [facility] [address] [id number] [address] [place] [address], [place] [address] Jun, [facility] [address] [id number] [address] [place] [address], [place] [address] 26 May, 2012 [facility] [address] [id number] [address] [place] [address] 24 May, 2012 [facility] [address] [id number] [address] [place] [address], [place] [address] 18 May, 2012 [facility] [address] [id number] [address] [place] [address], [place] [address] 30 Apr, 2012 [facility] [address] [id number] [address] [place] [address], [place] [address] Apr, [facility] [address] [id number] [address] [place] [address] Apr, [facility] [address] [id number] [address] [place] [address], [place] [address] Apr, [facility] [address] [id number] [address] [place] [address], [place] [address] Apr, [facility] [address] [id number] [address] [place] [address], [place] [address] Apr, [facility] [address] [id number] [address] [place] [address], [place] [address] Mar, [facility] [address] [id number] [address] [place] [address], [place] [address] Mar, [facility] [address] [id number] [address] [place] [address], [place] [address] Mar, [facility] [address] [id number] [address] [place] [address], [place] [address] Mar, [facility] [address] [id number] [address] [place] [address], [place] [address] Feb, [facility] [address] [id number] [address] [place] [address], [place] [address] Feb, [facility] [address] [id number] [address] [place] [address], [place] [address] Feb, [facility] [address] [id number] [address] [place] [address], [place] [address] Feb, [facility] [address] [id number] [address] [place] [address], [place] [address] Feb, [facility] [address] [id number] [address] [place] [address], [place] [address] January, [facility] [address] [id number] [address] [place] [address], [place] [address] January, [facility] [address] [id number] [address] [place] [address], [place] [address] January, [facility] [address] [id number] [address] [place] [address], [place] [address] January, [facility] [address] [id number] [address] [place] [address], [place] [address] January, [facility] [address] [id number] [address] [place] [address], [place] [address] January, [facility] [address] [id number] [address] [place] [address], [place] [address] Dec, [facility] [address] [id number] [address] [place] [address], [place] [address] Dec, [facility] [address] [id number] [address] [place] [address], [place] [address] Dec, [facility] [address] [id number] [address] [place] [address], [place] [address] Dec, [facility] [address] [id number] [address] [place] [address], [place] [address] Dec, [facility] [address] [id number] [address] [place] [address], [place] [address] Nov, [facility] [address] [id number] [address] [place] [address], [place] [address] Nov, [facility] [address] [id number] [address] [place] [address], [place] [address] Nov, [facility] [address] [id number] [address] [place] [address], [place] [address] Nov, [facility] [address] [id number] [address] [place] [address], [place] [address] Oct, [facility] [address] [id number] [address] [place] [address], [place] [address] Oct, [facility] [address] [id number] [address] [place] [address], [place] [address] Oct, [facility] [address] [id number] [address] [place] [address], [place] [address] Oct, [facility] [address] [id number] [address] [place] [address], [place] [address] Oct, [facility] [address] [id number] [address] [place] [address], [place] [address] Sep, [facility] [address] [id number] [address] [place] [address], [place] [address] Sep, [facility] [address] [id number] [address] [place] [address], [place] [address] Sep, [facility] [address] [id number] [address] [place] [address], [place] [address] Sep, [facility] [address] [id number] [address] [place] [address], [place] [address] Sep, [facility] [address] [id number] [address] [place] [address], [place] [address] Sep, [facility] [address] [id number] [address] [place] [address], [place] [address] Aug, [facility] [address] [id number] [address] [place] [address], [place] [address] Aug, [facility] [address] [id number] [address] [place] [address], [place] [address] Aug, [facility] [address] [id number] [address] [place] [address], [place] [address] Jul, [facility] [address] [id number] [address] [place] [address] Jul, [facility] [address] [id number] [address] [place] [address], [place] [address] Jul, [facility] [address] [id number] [address] [place] [address], [place] [address] Jul, [facility] [address] [id number] [address] [place] [address], [place] [address] Jun, [facility] [address] [id number] [address] [place] [address], [place] [address] 31 Jun, 2011 [facility] [address] [id number] [address] [place] [address], [place] [address] 18 Jun, 2011 [facility] [address] [id number] [address] [place] [address], [place] [address] 10 Jun, 2011 [facility] [address] [id number] [address] [place] [address], [place] [address] 10 Jun, 2011 [facility] [address] [id number] [address] [place] [address], [place] [address] 10 Jun, 2011 [facility] [address] [id number] [address] [place] [address], [place] [address] 11 Mar, 2011 [facility] [address] [id number] [address] [place] [address], [place] [address] 18 Dec, 2010 [facility] [address] [id number] [address] [place] [address], [place] [address] 11 Dec, 2010 [facility] [address] [id number] [address] [place] [address], [place] [address] 18 Nov, 2010 [facility] [address] [id number] [address] [place] [address], [place] [address] 16 Nov, 2010 [facility] [address] [id number] [address] [place] [address], [place] [address] 10 Sep, 2010 [facility] [address] [id number] [address] [place] [address], [place] [address] 31 Aug, 2010 [facility] [address] [id number] [address] [place] [address], [place] [address] Aug, [facility] [address] [id number] [address] [place] [address], [place] [address] Aug, [facility] [address] [id number] [address] [place] [address], [place] [address] Aug, [facility] [address] [id number] [address] [place] [address], [place] [address] Aug, [facility] [address] [id number] [address] [place] [address], [place] [address] 14 Aug, 2010 [facility] [address] [id number] [address] [place] [address], [place] [address] 08 Aug, 2010 [facility] [address] [id number] [address] [place] [address], [place] [address] 08 Aug, 2010 [facility] [address] [id number] [address] [place] [address], [place] [address] 07 Aug, 2010 [facility] [address] [id number] [address] [place] [address], [place] [address] 06 Aug, 2010 [facility] [address] [id number] [address] [place] [address], [place] [address] Aug, [facility] [address] [id number] [address] [place] [address], [place] [address] Aug, [facility] [address] [id number] [address] [place] [address] Jul, [facility] [address] [id number] [address] [place] [address], [place] [address] Jul, [facility] [address] [id number] [address] [place] [address] Jul, [facility] [address] [id number] [address] [place] [address] Jul, [facility] [address] [id number] [address] [place] [id number] Jul, [facility] [address] [id number] [address] [place] [phone] Jul, [facility] [address] [id number] [address] [place] [phone] Jun, [facility] [address] [id number] [address] [place] [id number] Jun, [facility] [address] [id number] [address] [place] [phone] 19 Jun, 2010 [facility] [address] [id number] [address] [place] [address], [place] [address] 13 Jun, 2010 [facility] [address] [id number] [address] [place] [id number] 16 Apr, 2010 [facility] [address] [id number] [address] [place] [address], [place] [address] 20 Mar, 2010 [facility] [address] [id number] [address] [place] [address], [place] [id number] 17 Feb, 2010 [facility] [address] [id number] [address] [place] [address], [place] [address] January, [facility] [address] [id number] [address] [place] [address], [place] [address] 15 Dec, 2009 [facility] [address] [id number] [address] [place] [address], [place] [address] Nov, [facility] [address] [id number] [address] [place] [address], [place] [address] Aug, [facility] [address] [id number] [address] [place] [address], [place] [address] Aug, [facility] [address] [id number] [address] [place] [address], [place] [address] Aug, [facility] [address] [id number] [address] [place] [id number] Jul, [facility] [address] [id number] [address] [place] [phone] Jul, [facility] [address] [id number] [address] [place] [id number] 07 Jul, 2009 [facility] [address] [id number] [address] [place] [address], [place] [address] 30 Jun, 2009 [facility] [address] [id number] [address] [place] [address], [place] [address] 29 Jun, 2009 [facility] [address] [id number] [address] [place] [id number] Jun, [facility] [address] [id number] [address] [place] [id number] Jun, [facility] [address] [id number] [address] [place] [id number] Jun, [facility] [address] [id number] [address] [place] [id number] Jun, [facility] [address] [id number] [address] [place] [id number] Apr, [facility] [address] [id number] [address] [place] [id number] Apr, [facility] [address] [id number] [address] [place] [id number] Feb, [facility] [address] [facility] [id number] [address] [place] [phone] January, [facility] [address] [id number] [address] [place] [id number] Dec, IMMUNIZATIONS No Known Immunizations SOCIAL HISTORY Never Assessed REASON FOR VISIT [facility] [place] VITAL SIGNS MEDICATIONS Unknown [...] obesity Medical History skin cancer-basal cell R jew (removed ) Medical History Arthritis Medical History [...] History inability to urinate 09/16/15 Hospitalization History [facility] inpatient mental health ea rly 2000's Hospitalization History hyperkalemia 10/2017 Hospitalization History fluid in lung
--- OUTSIDE RECORDS SUMMARY | 2020-03-01 17:35 | XMS REPORT ---
Author Author Michele Verduzco Doctor Organization [facility] Address Unknown Phone Unavailable Care Team Providers Care Manager Regional Sales Name Role Phone Migration, Doctor Unavailable Unavailable PROBLEMS Type Condition ICD9-CM Code XKH70-[id number] Code Onset Dates Condition S tatus SNOMED Code Problem Cough R05 Active 15352531 Problem Benign prostatic hyperplasia with lower urinary tract symptoms, unspecified morphology N40.1 Active 63069 6007 Problem Eustachian tube dysfunction, unspecified laterality H69.80 Active 33087038 Problem Chronic pain G89.29 Active 6880236 1 Problem DM neuro manif type II E11.49 Active 73416285 Problem Diabetes E11.9 Active 61951798 Problem Leukocytosis D72.829 Active 2517609 06 Problem Falling R29.6 Active 725536582 Problem Pressure ulcer of other site, stage 3 L89.893 Active 221560463 Problem 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 Active 458289941 Problem Eye exam abnormal R93.8 Active 16 8479052 Problem Dysuria R30.0 Active 11356068 Problem Hypokalemia E87.6 Active 33445998 Problem Morbid obesity E66.01 Active 65504 6002 Problem Anxiety F41.9 Active 56301424 Problem Diabetic polyneuropathy associated with type 2 d iabetes mellitus E11.42 Active 69682981 Problem Essential hypertension I10 Active 80512770 Problem Bilateral primary osteoarthritis of knee M17.0 Active 523144481 Problem Polyneuropathy associated with underlying disease G63 Active 163972286 Problem Anemia of chronic illness D63.8 Acti ve 320210451 Problem Lymphocytosis D72.820 Active 994155 09 Problem Retinal edema H35.81 Active 981894 6 Problem Chronic lymphocytic leukemia C91.10 A ctive 84866054 Problem Bipolar disorder, in partial remission, most rec ent episode depressed F31.75 Active 68324516 Problem Pure hypercholesterolemia E78.00 Acti ve 954044949 Problem Primary osteoarthritis of right knee M17.11 Active 259291830579589 Problem Bipolar disorder F31.9 Active 137 75889 Problem Bipolar I disorder, most recent episode (or curr ent) mixed, moderate F31.62 Active 53403961 Problem Chronic diastolic (congestive) heart failure I50.3 2 Active 088900848 Problem Reactive airway disease J45.909 Active 067217710939 Problem Insomnia, unspecified type G47.00 Act sharon 167829404 Problem Other chronic pain G89.29 Active 8 8914743 Problem Other iron deficiency anemia D50.8 A ctive 52212195 Problem Mild cognitive impairment G31.84 Acti ve 595472189 Problem Skin cancer C44.90 Active 93003530 7 ALLERGIES No Information ENCOUNTERS Encounter Location Date Diagnosis [facility] [address] [facility] [id number] [address] [place] [id number] Mar, [facility] [address] [facility] [id number] [address] [place] [phone] January, [facility] [address] [facility] [id number] [address] [place] [address] January, [facility] [address] [facility] [id number] [address] [place] [address] January, [facility] [address] [facility] [id number] [address] [place] [address] Dec, [facility] [address] [facility] [id number] [address] [place] [id number] Dec, Chronic pain G89.29 and Bipo lar disorder F31.9 [facility] [address] [facility] [id number] [address] [place] [phone] Dec, Edema of both lower extremit ies R60.0 [facility] [address] [facility] [id number] [address] [place] [phone] Dec, Bipolar disorder F31.9 [facility] [address] [facility] [id number] [address] [place] [address] Dec, Bipolar disorder, in partial remission, most recent episode depressed F31.75 and Mild cognitive impairment G31.84 [facility] [address] [facility] [id number] [address] [place] [phone] Nov, [place] [address] [place] [id number] [address] [place] [address] Nov, Chronic pain G89.29 [place] [address] [place] [id number] [address] [place] [address] Nov, Bipolar disorder, in partial remission, most recent episode depressed F31.75 and Mild cognitive impairment G31.84 [place] [id number] [place] [address] Nov, Bipolar disorder F31.9 [place] [id number] [address] [place] [id number] 04 Nov, 2018 Encounter for Medicare annua [...] unspecified morphology N40.1 and Essential hypertension I10 [place] [address] [place] [id number] [address] [place] [address] Oct, Chronic pain G89.29 [place] [address] [place] [id number] [address] [place] [id number] Oct, Diabetes E11.9 [place] [address] [facility] [id number] [address] [place] [phone] Oct, Bipolar I disorder, most rec ent episode (or current) mixed, moderate F31.62 and Mild cognitive impairment G31.84 [place] [address] [place] [id number] [address] [place] [id number] Oct, Bipolar I disorder, most rec ent episode (or current) mixed, moderate F31.62 and Mild cognitive impairment G31.84 [place] [address] [facility] [id number] [address] [place] [phone] Sep, Bipolar I disorder, most rec ent episode (or current) mixed, moderate F31.62 and Mild cognitive impairment G31.84 [place] [address] [place] [id number] [address] [place] [address] Sep, [place] [address] [place] [id number] [address] [place] [address] Sep, Diabetes E11.9 ; Hypoxia R09 .02 ; Hyperglycemia R73.9 ; Therapeutic drug monitoring Z51.81 ; BMI 50.0-59.9, adult Z68.43 and Skin cancer C44.90 [place] [address] [place] [id number] [address] [place] [address] Sep, Chronic pain G89.29 [place] [address] [place] [id number] [address] [place] [address] Sep, Bipolar I disorder, most rec ent episode (or current) mixed, moderate F31.62 [place] [address] [place] [id number] [address] [place] [address] Sep, [place] [address] [place] [id number] [address] [place] [id number] Sep, [place] [address] [place] [id number] [place] [id number] Aug, Chronic pain G89.29 [place] [address] [place] [id number] [address] [place] [id number] Aug, Bipolar I disorder, most rec ent episode (or current) mixed, moderate F31.62 [place] [address] [place] [id number] [address] [place] [address] Aug, Bipolar I disorder, most rec ent episode (or current) mixed, moderate F31.62 and Mild cognitive impairment G31.84 [place] [address] [place] [id number] [place] [id number] Jul, [facility] [address] [id number] [address] [place] [address] Jul, Chronic pain G89.29 [facility] [address] [id number] [address] [place] [phone] Jul, Bipolar I disorder, most rec ent episode (or current) mixed, moderate F31.62 and Mild cognitive impairment G31.84 [facility] [address] [id number] [address] [place] [address] Jul, Bipolar I disorder, most rec ent episode (or current) mixed, moderate F31.62 and MCI (mild cognitive impairment) G31.84 [facility] [address] [id number] [address] [place] [address] Jul, [facility] [address] [id number] [address] [place] [address] Jul, [facility] [address] [id number] [address] [place] [id number] Jul, Bipolar I disorder, most rec ent episode (or current) mixed, moderate F31.62 [facility] [address] [id number] [address] [place] [address] Jul, Chronic pain G89.29 [facility] [address] [id number] [address] [place] [id number] Jun, Bipolar I disorder, most rec ent episode (or current) mixed, moderate F31.62 [facility] [address] [id number] [address] [place] [address] Jun, Pre-procedure lab exam Z01.8 12 [facility] [address] [id number] [address] [place] [phone] Jun, [facility] [address] [id number] [place] [id number] Jun, [facility] [address] [id number] [address] [place] [phone] Jun, [place] [address] [place] [id number] [place] [id number] Jun, Forgetfulness R68.89 ; Pre-s yncope R55 ; Localized edema R60.0 ; Other iron deficiency anemia D50.8 and BMI 50.0-59.9, adult Z68.43 [place] [address] [place] [id number] [place] [address] Jun, Chronic pain G89.29 [place] [address] [place] [id number] [place] [address] Jun, Chronic pain G89.29 [place] [address] [place] [id number] [place] [address] Jun, Bipolar I disorder, most rec ent episode (or current) mixed, moderate F31.62 [place] [address] [place] [id number] [place] [address] May, Chronic pain G89.29 [place] [address] [place] [id number] [place] [address] Apr, [place] [address] [place] [id number] [place] [address] Apr, Chronic pain G89.29 [place] [address] [place] [id number] [place] [address] Apr, Primary osteoarthritis of ri ght knee M17.11 [place] [address] [place] [id number] [place] [address] Mar, [place] [address] [place] [id number] [place] [address] Mar, BMI 50.0-59.9, adult Z68.43 and Bipolar disorder, in partial remission, most recent episode depressed F31.75 [place] [address] [place] [id number] [place] [address] Mar, Diabetes E11.9 ; Pure hyperc holesterolemia E78.00 ; Essential hypertension I10 ; Nausea with vomiting, unspecified R11.2 and Headache, unspecified headache type R51 [facility] [address] [facility] [id number] [address] [place] [address] Mar, Bipolar I disorder, most rec ent episode (or current) mixed, moderate F31.62 [facility] [address] [place] [id number] [address] [place] [address] Mar, Bipolar I disorder, most rec ent episode (or current) mixed, moderate F31.62 [place] [address] [facility] [id number] [address] [place] [phone] Mar, Chronic pain G89.29 [place] [address] [facility] [id number] [address] [place] [id number] Mar, Bipolar I disorder, most rec ent episode (or current) mixed, moderate F31.62 [place] [address] [place] [id number] [place] [id number] Feb, Bipolar I disorder, most rec ent episode (or current) mixed, moderate F31.62 [place] [address] [facility] [id number] [address] [place] [address] Feb, Chronic pain G89.29 [facility] [address] [facility] [id number] [address] [place] [address] Feb, Decubitus ulcer of right josselin t, stage 3 L89.893 and BMI 50.0-59.9, adult Z68.43 [facility] [address] [place] [id number] [place] [address] Feb, Bipolar I disorder, most rec ent episode (or current) mixed, moderate F31.62 [place] [address] [place] [id number] [place] [address] Feb, [place] [address] [facility] [id number] [address] [place] [address] January, [place] [address] [place] [id number] [place] [address] January, Chronic pain G89.29 [place] [address] [facility] [id number] [address] [place] [address] January, Bipolar I disorder, most rec ent episode (or current) mixed, moderate F31.62 [place] [address] [facility] [id number] [address] [place] [address] January, Bipolar I disorder, most rec ent episode (or current) mixed, moderate F31.62 [place] [address] [facility] [id number] [address] [place] [address] Dec, Bipolar I disorder, most rec ent episode (or current) mixed, moderate F31.62 and BMI 50.0-59.9, adult Z68.43 [place] [address] [facility] [id number] [address] [place] [address] Dec, Bipolar I disorder, most rec ent episode (or current) mixed, moderate F31.62 [place] [address] [place] [id number] [place] [address] Dec, Chronic pain G89.29 [place] [address] [place] [id number] [place] [address] Dec, DM neuro manif type II E11.4 9 ; Right flank pain R10.9 ; jail 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 Z79.891 ; Encounter for medication monitoring Z51.81 and BMI 50.0-59.9, adult Z68.43 [place] [address] [place] [id number] [address] [place] [address] Dec, Bipolar I disorder, most rec ent episode (or current) mixed, moderate F31.62 [place] [address] [place] [id number] [place] [address] Nov, Bipolar I disorder, most rec ent episode (or current) mixed, moderate F31.62 [place] [address] [place] [id number] [place] [address] Nov, Chronic pain G89.29 [facility] [address] [facility] [id number] [address] [place] [address] Nov, Bipolar I disorder, most rec ent episode (or current) mixed, moderate F31.62 [facility] [address] [facility] [id number] [address] [place] [address] Nov, Hypokalemia E87.6 [facility] [address] [place] [id number] [address] [place] [address] Nov, Bipolar I disorder, most rec ent episode (or current) mixed, moderate F31.62 [facility] [address] [place] [id number] [address] [place] [address] Oct, Chronic pain G89.29 [facility] [address] [place] [id number] [address] [place] [address] Oct, BMI 50.0-59.9, adult Z68.43 and Bipolar I disorder, most recent episode (or current) mixed, moderate F31.62 [facility] [address] [place] [id number] [address] [place] [address] Oct, Bipolar I disorder, most rec ent episode (or current) mixed, moderate F31.62 [facility] [address] [place] [id number] [address] [place] [address] Oct, [place] [address] [place] [id number] [place] [address] Oct, Hypokalemia E87.6 [facility] [address] [place] [id number] [address] [place] [address] Oct, DM neuro manif type II E11.4 9 [facility] [address] [place] [id number] [address] [place] [address] Oct, Bipolar I disorder, most rec ent episode (or current) mixed, moderate F31.62 [place] [address] [place] [id number] [address] [place] [address] Oct, Bipolar I disorder, most rec ent episode (or current) mixed, moderate F31.62 [place] [address] [address] 14 Oct, 2017 Hyperkalemia E87.5 ; Falling R29.6 ; BMI 50.0-59.9, adult Z68.43 and Acute left ankle pain M25.572 [place] [address] [address] 08 Oct, 2017 DM neuro manif type II E11.4 9 [place] [address] [address] Oct, [place] [address] [address] Sep, Chronic pain G89.29 [place] [address] [address] Sep, [place] [address] [address] Sep, Bilateral primary osteoarthr itis of knee M17.[address] [address] Sep, Generalized edema R60.1 [place] [address] [address] 16 Sep, 2017 Bipolar I disorder, most rec ent episode (or current) mixed, moderate F31.62 [place] [address] [address] 15 Sep, 2017 Hypoxia R09.02 ; Other hyper volemia E87.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 ; Anemia of chronic illness D63.8 and BMI 50.0- 59.9, adult Z68.43 [place] [address] [address] Sep, [facility] [address] [id number] [address] [place] [address] Sep, Bipolar I disorder, most rec ent episode (or current) mixed, moderate F31.62 [facility] [address] [id number] [address] [place] [address] Aug, Chronic pain G89.29 [facility] [address] [id number] [address] [place] [address] Aug, Generalized edema R60.1 [facility] [address] [id number] [address] [place] [address] Aug, [facility] [address] [id number] [address] [place] [address] Aug, [facility] [address] [id number] [address] [place] [address] Aug, Bipolar I disorder, most rec ent episode (or current) mixed, moderate F31.62 [facility] [address] [id number] [address] [place] [id number] 07 Aug, 2017 Bipolar I disorder, most rec ent episode (or current) mixed, moderate F31.62 [facility] [address] [id number] [address] [place] [address] 04 Aug, 2017 Chronic pain G89.29 [facility] [address] [id number] [address] [place] [address] Jul, Bipolar I disorder, most rec ent episode (or current) mixed, moderate F31.62 [facility] [address] [id number] [address] [place] [address] Jul, Bipolar I disorder, most rec ent episode (or current) mixed, moderate F31.62 and BMI 60.0-69.9, adult Z68.44 [facility] [address] [id number] [address] [place] [id number] 16 Jul, 2017 Bipolar I disorder, most rec ent episode (or current) mixed, moderate F31.62 [facility] [address] [facility] [id number] [address] [place] [address] Jul, Chronic pain G89.29 [facility] [address] [facility] [id number] [address] [place] [address] Jul, Bipolar I disorder, most rec ent episode (or current) mixed, moderate F31.62 [facility] [address] [facility] [id number] [address] [place] [address] Jun, Polyneuropathy associated wi th underlying disease G63 and Diabetes E11.9 [facility] [address] [facility] [id number] [address] [place] [address] Jun, Bipolar I disorder, most rec ent episode (or current) mixed, moderate F31.62 [facility] [address] [facility] [id number] [address] [place] [address] Jun, Chronic pain G89.29 [facility] [address] [facility] [id number] [address] [place] [address] May, Bipolar I disorder, most rec ent episode (or current) mixed, moderate F31.62 [facility] [address] [facility] [id number] [address] [place] [address] May, Bipolar I disorder, most rec ent episode (or current) mixed, moderate F31.62 [facility] [address] [facility] [id number] [address] [place] [address] 20 May, 2017 Diabetic polyneuropathy asso ciated with type 2 diabetes mellitus E11.42 [facility] [address] [id number] [address] [place] [id number] 18 May, 2017 Bipolar I disorder, most rec ent episode (or current) mixed, moderate F31.62 [facility] [address] [facility] [id number] [address] [place] [address] 13 May, 2017 Bipolar I disorder, most rec ent episode (or current) mixed, moderate F31.62 [facility] [address] [id number] [address] [place] [address] May, Chronic pain G89.29 [facility] [address] [id number] [address] [place] [address] Apr, Bipolar I disorder, most rec ent episode (or current) mixed, moderate F31.62 [facility] [address] [id number] [address] [place] [address] Apr, [facility] [address] [id number] [address] [place] [address] Apr, Chronic pain G89.29 and DM n euro manif type II E11.49 [facility] [address] [id number] [address] [place] [address] Apr, [facility] [address] [id number] [address] [place] [address] Apr, Bipolar I disorder, most rec ent episode (or current) mixed, moderate F31.62 [facility] [address] [facility] [id number] [address] [place] [address] Apr, Chronic pain G89.29 [facility] [address] [facility] [id number] [address] [place] [address] Apr, Iliotibial band syndrome, le ft M76.32 [facility] [address] [facility] [id number] [address] [place] [id number] Apr, Bipolar I disorder, most rec ent episode (or current) mixed, moderate F31.62 [facility] [address] [facility] [id number] [address] [place] [id number] Mar, Bipolar I disorder, most rec ent episode (or current) mixed, moderate F31.62 [facility] [address] [facility] [id number] [address] [place] [id number] Mar, Bipolar I disorder, most rec ent episode (or current) mixed, moderate F31.62 [facility] [address] [place] [id number] [address] [place] [id number] Mar, [facility] [address] [id number] [address] [place] [id number] Mar, Bipolar I disorder, most rec ent episode (or current) mixed, moderate F31.62 [facility] [address] [id number] [address] [place] [id number] Mar, Chronic pain G89.29 [facility] [address] [id number] [address] [place] [id number] Mar, Bipolar I disorder, most rec ent episode (or current) mixed, moderate F31.62 [facility] [address] [id number] [address] [place] [id number] Mar, Bipolar I disorder, most rec ent episode (or current) mixed, moderate F31.62 [facility] [address] [facility] [id number] [address] [place] [id number] Mar, Acute pain of left knee M25. 562 ; Left hip pain M25.552 ; Generalized edema R60.1 and Tongue swelling R22.0 [facility] [address] [id number] [address] [place] [id number] Mar, [facility] [address] [facility] [id number] [address] [place] [id number] Feb, Chronic pain G89.29 [facility] [address] [facility] [id number] [address] [place] [phone] Feb, Diabetes E11.9 [facility] [address] [id number] [address] [place] [id number] January, Chronic pain G89.29 [facility] [address] [id number] [address] [place] [phone] January, [facility] [address] [facility] [id number] [address] [place] [phone] January, Bipolar I disorder, most rec ent episode (or current) mixed, moderate F31.62 [facility] [address] [id number] [address] [place] [id number] Dec, Bipolar I disorder, most rec ent episode (or current) mixed, moderate F31.62 [facility] [address] [id number] [address] [place] [id number] Dec, Chronic pain G89.29 [facility] [address] [facility] [id number] [address] [place] [phone] Dec, Bipolar I disorder, most rec ent episode (or current) mixed, moderate F31.62 [facility] [address] [facility] [id number] [address] [place] [id number] Dec, Diabetes E11.9 ; Essential h ypertension I10 ; Chronic pain G89.29 and Morbid obesity E66.01 [facility] [address] [facility] [id number] [address] [place] [id number] Dec, [facility] [address] [facility] [id number] [address] [place] [id number] Dec, Bipolar I disorder, most rec ent episode (or current) mixed, moderate F31.62 [facility] [address] [facility] [id number] [address] [place] [phone] Dec, Bipolar I disorder, most rec ent episode (or current) mixed, moderate F31.62 [facility] [address] [facility] [id number] [address] [place] [id number] Nov, Chronic pain G89.29 [facility] [address] [id number] [address] [place] [id number] Nov, Bipolar I disorder, most rec ent episode (or current) mixed, moderate F31.62 [facility] [address] [facility] [id number] [address] [place] [phone] Nov, [facility] [address] [facility] [id number] [address] [place] [phone] Nov, Bipolar I disorder, most rec ent episode (or current) mixed, moderate F31.62 [facility] [address] [facility] [id number] [address] [place] [id number] Nov, Bipolar I disorder, most rec ent episode (or current) mixed, moderate F31.62 [facility] [address] [facility] [id number] [address] [place] [phone] Nov, [facility] [address] [place] [id number] [address] [place] [phone] Nov, [facility] [address] [facility] [id number] [address] [place] [id number] Nov, [facility] [address] [facility] [id number] [address] [place] [phone] Oct, Chronic pain G89.29 [facility] [address] [place] [id number] [address] [place] [phone] Oct, Bipolar I disorder, most rec ent episode (or current) mixed, moderate F31.62 [facility] [address] [place] [id number] [address] [place] [id number] Oct, [facility] [address] [facility] [id number] [address] [place] [address] Oct, Chronic pain G89.29 ; Diabet es E11.9 ; Anxiety F41.9 and 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 [facility] [address] [facility] [id number] [address] [place] [id number] Oct, [facility] [address] [facility] [id number] [address] [place] [phone] Oct, Diabetes E11.9 [facility] [address] [facility] [id number] [address] [place] [id number] Oct, Bipolar I disorder, most rec ent episode (or current) mixed, moderate F31.62 [facility] [address] [facility] [id number] [address] [place] [address] Sep, Chronic pain G89.29 [facility] [address] [facility] [id number] [address] [place] [phone] Sep, Chronic pain G89.29 [facility] [address] [facility] [id number] [address] [place] [id number] Aug, Chronic pain G89.29 [facility] [address] [facility] [id number] [address] [place] [address] Jul, [facility] [address] [facility] [id number] [address] [place] [phone] Jul, Diabetes E11.9 [facility] [address] [facility] [id number] [address] [place] [address] Jul, Chronic pain G89.29 [facility] [address] [facility] [id number] [address] [place] [phone] Jul, Bipolar I disorder, most rec ent episode (or current) mixed, moderate F31.62 [facility] [address] [place] [id number] [address] [place] [phone] Jun, Bipolar I disorder, most rec ent episode (or current) mixed, moderate F31.62 [facility] [address] [facility] [id number] [address] [place] [phone] Jun, [facility] [address] [place] [id number] [address] [place] [phone] Jun, Bipolar I disorder, most rec ent episode (or current) mixed, moderate F31.62 [facility] [address] [facility] [id number] [address] [place] [address] 30 May, 2016 Insomnia, unspecified type G 47.00 [facility] [address] [facility] [id number] [address] [place] [phone] 22 May, 2016 Bipolar I disorder, most rec ent episode (or current) mixed, moderate F31.62 [facility] [address] [facility] [id number] [address] [place] [id number] 14 May, 2016 [facility] [address] [place] [id number] [address] [place] [id number] May, Bipolar I disorder, most rec ent episode (or current) mixed, moderate F31.62 [facility] [address] [facility] [id number] [address] [place] [id number] May, Diabetes E11.9 and Essential hypertension I10 [facility] [address] [facility] [id number] [address] [place] [address] Apr, Chronic pain G89.29 [facility] [address] [facility] [id number] [address] [place] [phone] Apr, Bipolar I disorder, most rec ent episode (or current) mixed, moderate F31.62 [place] [address] [facility] [id number] [address] [place] [address] Apr, [place] [address] [place] [id number] [address] [place] [id number] Apr, [place] [address] [facility] [id number] [address] [place] [address] Mar, Chronic pain G89.29 ; Headac he, unspecified headache type R51 ; Neuropathy G62.9 ; Pain of right hip joint M25.551 and Essential hypertension I10 [place] [address] [facility] [id number] [address] [place] [address] Mar, Chronic pain G89.29 [place] [address] [facility] [id number] [address] [place] [address] Mar, Bipolar I disorder, most rec ent episode (or current) mixed, moderate F31.62 [place] [address] [facility] [id number] [address] [place] [address] Feb, Bipolar I disorder, most rec ent episode (or current) mixed, moderate F31.62 and Insomnia, unspecified type G47.00 [facility] [address] [id number] [address] [place] [phone] Feb, Chronic pain G89.29 [facility] [address] [facility] [id number] [address] [place] [address] Feb, Bipolar I disorder, most rec ent episode (or current) mixed, moderate F31.62 [facility] [address] [id number] [address] [place] [id number] January, Bipolar I disorder, most rec ent episode (or current) mixed, moderate F31.62 [facility] [address] [id number] [address] [place] [address] January, Chronic pain G89.29 [facility] [address] [id number] [address] [place] [phone] January, Chronic pain G89.29 and Esse ntial hypertension I10 [facility] [address] [id number] [address] [place] [id number] January, Bipolar I disorder, most rec ent episode (or current) mixed, moderate F31.62 [facility] [address] [id number] [address] [place] [id number] Dec, [facility] [address] [id number] [address] [place] [id number] Dec, [facility] [address] [id number] [address] [place] [phone] Dec, [facility] [address] [id number] [address] [place] [id number] Dec, [facility] [address] [id number] [address] [place] [phone] Nov, Reactive airway disease J45. 909 [facility] [address] [id number] [address] [place] [phone] Nov, [facility] [address] [id number] [address] [place] [phone] Nov, [facility] [address] [id number] [address] [place] [id number] Nov, [facility] [address] [id number] [address] [place] [phone] Nov, [place] [address] [address] Nov, Onychomycosis B35.1 ; Hammer toe M20.40 ; [place] or callus L84 and DM neuro manif type II E11.49 [place] [address] [address] Nov, Chronic pain G89.29 ; Leukoc ytosis D72.829 and Diabetes E11.9 [place] [address] [address] Nov, [place] [address] [address] Oct, Bronchitis J40 [place] [address] [address] Oct, [place] [address] [address] Oct, [place] [address] [address] Oct, Mastoiditis, unspecified lat erality H70.90 and Type 2 diabetes mellitus with complication E11.8 [place] [address] [address] Sep, [place] [address] [address] Sep, Dysuria R30.0 ; Cough R05 ; Benign prostatic hyperplasia with lower urinary tract symptoms, unspecified morphology N40.1 ; Hypokalemia E87.6 and Eustachian tube dysfunction, unspecified laterality H69.[address] [address] Sep, Moderate mixed bipolar I dis order F31.[address] [address] Sep, Hypokalemia E87.6 [facility] [address] [id number] [address] [place] [id number] Sep, [facility] [address] [facility] [id number] [address] [place] [address] Sep, Upper respiratory tract infe ction, unspecified type J06.9 [facility] [address] [id number] [address] [place] [phone] Aug, [facility] [address] [id number] [address] [place] [phone] Aug, Dysuria R30.0 [facility] [address] [id number] [address] [place] [phone] Aug, [facility] [address] [id number] [address] [place] [phone] Jul, [facility] [address] [id number] [address] [place] [phone] Jul, [facility] [address] [id number] [address] [place] [address] Jul, [facility] [address] [facility] [id number] [address] [place] [id number] Jul, [facility] [address] [id number] [address] [place] [phone] Jun, [facility] [address] [id number] [address] [place] [phone] Jun, [facility] [address] [id number] [address] [place] [address] Jun, [facility] [address] [id number] [address] [place] [phone] May, [facility] [address] [facility] [id number] [address] [place] [id number] May, Bipolar I disorder, most rec ent episode (or current) mixed, moderate 296.62 [facility] [address] [facility] [id number] [address] [place] [id number] May, [facility] [address] [facility] [id number] [address] [place] [address] May, Bipolar I disorder, most rec ent episode (or current) mixed, moderate 296.62 and Major depressive disorder, recurrent episode, severe, specified as with psychotic behavior 296.34 [facility] [address] [facility] [id number] [address] [place] [id number] May, Bipolar I disorder, most rec ent episode (or current) mixed, moderate 296.62 [facility] [address] [facility] [id number] [address] [place] [address] May, [facility] [address] [place] [id number] [address] [place] [address] Apr, [facility] [address] [facility] [id number] [address] [place] [address] Apr, [facility] [address] [place] [id number] [address] [place] [id number] Apr, Unspecified disorder of kidn ey and ureter 593.9 and Diabetes mellitus type 2, uncontrolled 250.02 [facility] [address] [place] [id number] [address] [place] [address] Apr, [facility] [address] [facility] [id number] [address] [place] [address] Apr, [facility] [address] [facility] [id number] [address] [place] [address] Apr, [facility] [address] [facility] [id number] [address] [place] [address] Apr, [facility] [address] [facility] [id number] [address] [place] [address] Apr, Diabetes mellitus type II, u ncontrolled 250.02 [facility] [address] [place] [id number] [address] [place] [phone] Apr, [facility] [address] [facility] [id number] [address] [place] [phone] Mar, [facility] [address] [place] [id number] [address] [place] [address] Mar, [facility] [address] [place] [id number] [address] [place] [address] Mar, [facility] [address] [place] [id number] [address] [place] [address] Mar, Major depressive disorder, r ecurrent episode, severe, specified as with psychotic behavior 296.34 and Bipolar I disorder, most recent episode (or current) mixed, moderate 296.62 [facility] [address] [place] [id number] [address] [place] [address] Mar, Diabetes 250.00 ; Anuria 788 .5 ; Nausea and vomiting 787.01 and Diarrhea 787.91 [facility] [address] [place] [id number] [address] [place] [address] Mar, Diabetes 250.00 [facility] [address] [place] [id number] [address] [place] [address] Mar, [facility] [address] [place] [id number] [address] [place] [address] Mar, Diabetes 250.00 [facility] [address] [place] [id number] [address] [place] [phone] Mar, [facility] [address] [place] [id number] [address] [place] [address] Mar, [facility] [address] [place] [id number] [address] [place] [address] Mar, [facility] [address] [place] [id number] [address] [place] [address] Mar, [facility] [address] [place] [id number] [address] [place] [address] Mar, Bipolar I disorder, most rec ent episode (or current) mixed, moderate 296.62 and Major depressive disorder, recurrent episode, severe, specified as with psychotic behavior 296.[address] [address] Mar, Magnesium deficiency 275.2 ; Hypokalemia 276.8 ; Nausea & vomiting 787.01 and Diabetes mellitus type 2, uncontrolled 250.[address] [address] Feb, [address] [address] Feb, Bipolar I disorder, most rec ent episode (or current) mixed, moderate 296.[address] [address] Feb, Nausea and vomiting 787.01 ; Left elbow pain 719.42 ; Anuria 788.5 and Diabetes 250.[address] [address] Feb, [address] [address] Feb, Hypopotassemia 276.8 and Hyp okalemia 276.[address] [address] Feb, Hypopotassemia 276.8 and Hyp okalemia 276.[address] [address] Feb, Seborrheic keratoses 702.[address] [address] Feb, Hypopotassemia 276.8 and Low magnesium levels 275.[address] [address] January, [address] [address] January, [facility] [address] [id number] [address] [place] [address] January, [facility] [address] [id number] [address] [place] [address] January, Scalp lesion 709.9 [facility] [address] [id number] [address] [place] [address] January, [facility] [address] [id number] [address] [place] [address] Dec, Tear of medial cartilage or meniscus of knee, current 836.0 and 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 [facility] [address] [id number] [address] [place] [address] Dec, [facility] [address] [id number] [address] [place] [id number] Dec, [facility] [address] [id number] [address] [place] [address] Dec, Squamous cell carcinoma, 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 [facility] [address] [id number] [address] [place] [address] Dec, [facility] [address] [id number] [address] [place] [id number] Dec, [facility] [address] [id number] [address] [place] [address] Nov, [facility] [address] [id number] [address] [place] [id number] Nov, [facility] [address] [id number] [address] [place] [id number] Nov, [facility] [address] [id number] [address] [place] [id number] Nov, [facility] [address] [id number] [address] [place] [id number] Nov, [facility] [address] [id number] [address] [place] [address], [place] [address] Nov, [facility] [address] [id number] [address] [place] [address], [place] [address] Nov, 2014 [facility] [address] [id number] [address] [place] [address], [place] [address] Nov, 2014 [facility] [address] [id number] [address] [place] [address], [place] [address] Nov, 2014 [facility] [address] [id number] [address] [place] [address], [place] [address] Nov, [facility] [address] [id number] [address] [place] [address], [place] [address] Nov, [facility] [address] [id number] [address] [place] [address], [place] [address] Nov, [facility] [address] [id number] [address] [place] [id number] Oct, 2014 [facility] [address] [id number] [address] [place] [address], [place] [id number] Oct, 2014 [facility] [address] [id number] [address] [place] [id number] Oct, 2014 [facility] [address] [id number] [address] [place] [id number] Oct, 2014 [facility] [address] [id number] [address] [place] [id number] Oct, 2014 [facility] [address] [id number] [address] [place] [address], [place] [address] Oct, 2014 [facility] [address] [id number] [address] [place] [id number] Oct, 2014 [facility] [address] [id number] [address] [place] [id number] Oct, 2014 [facility] [address] [id number] [address] [place] [address], [place] [address] Oct, [facility] [place] [address] [id number] [address] [place] [address], [place] [address] Sep, [facility] [address] [id number] [address] [place] [address], [place] [address] Sep, [facility] [address] [id number] [address] [place] [address], [place] [id number] Sep, [facility] [address] [id number] [address] [place] [address], [place] [address] Sep, [facility] [place] [address] [id number] [address] [place] [address], [place] [address] Sep, [facility] [address] [id number] [address] [place] [address], [place] [address] Sep, [facility] [address] [id number] [address] [place] [address], [place] [address] Sep, [facility] [address] [id number] [address] [place] [address], [place] [address] Sep, [facility] [place] [address] [id number] [address] [place] [address], [place] [address] Sep, [facility] [address] [id number] [address] [place] [address], [place] [address] Sep, [facility] [place] [address] [id number] [address] [place] [address], [place] [address] Sep, [facility] [address] [id number] [address] [place] [address], [place] [address] Sep, [facility] [address] [id number] [address] [place] [address], [place] [id number] Sep, [facility] [address] [id number] [address] [place] [address], [place] [address] Sep, [facility] [address] [id number] [address] [place] [address], [place] [address] Sep, [facility] [address] [id number] [address] [place] [address], [place] [address] Sep, [facility] [address] [id number] [address] [place] [address], [place] [address] Aug, [facility] [address] [id number] [address] [place] [address], [place] [address] Aug, [facility] [address] [id number] [address] [place] [address], [place] [address] Aug, [facility] [address] [id number] [address] [place] [address], [place] [address] Aug, [facility] [address] [id number] [address] [place] [address], [place] [address] Aug, [facility] [address] [id number] [address] [place] [address], [place] [address] Aug, [facility] [address] [id number] [address] [place] [address], [place] [address] Aug, [facility] [address] [id number] [address] [place] [address], [place] [address] Aug, [facility] [address] [id number] [address] [place] [address], [place] [address] Aug, [facility] [address] [id number] [address] [place] [address], [place] [address] Aug, [facility] [address] [id number] [address] [place] [address], [place] [address] Aug, [facility] [address] [place] [id number] Aug, [facility] [address] [id number] [address] [place] [address], [place] [address] Aug, [facility] [address] [id number] [address] [place] [address], [place] [address] Aug, [facility] [address] [id number] [address] [place] [address], [place] [address] Aug, [facility] [address] [id number] [address] [place] [address], [place] [address] Aug, [facility] [address] [id number] [address] [place] [address], [place] [address] Aug, [facility] [address] [id number] [address] [place] [address], [place] [address] Aug, [facility] [address] [id number] [address] [place] [address], [place] [address] Aug, [facility] [address] [id number] [address] [place] [address], [place] [address] Aug, [facility] [address] [id number] [address] [place] [address], [place] [address] Aug, [facility] [address] [id number] [address] [place] [address], [place] [address] Aug, [facility] [address] [id number] [address] [place] [address], [place] [address] Aug, [facility] [address] [id number] [address] [place] [address], [place] [address] Aug, [facility] [address] [id number] [address] [place] [address], [place] [address] Aug, [facility] [address] [id number] [address] [place] [address], [place] [address] Aug, [facility] [address] [id number] [address] [place] [address], [place] [address] Aug, [facility] [address] [id number] [address] [place] [address], [place] [address] Aug, [facility] [address] [id number] [address] [place] [address], [place] [address] Aug, [facility] [address] [id number] [address] [place] [address], [place] [address] Aug, [facility] [address] [id number] [address] [place] [address], [place] [address] Jul, [facility] [address] [id number] [address] [place] [address], [place] [address] Jul, [facility] [address] [id number] [address] [place] [address], [place] [address] Jul, [facility] [address] [id number] [address] [place] [address], [place] [address] Jul, [facility] [address] [id number] [address] [place] [address], [place] [address] Jul, [facility] [address] [id number] [address] [place] [address], [place] [address] Jul, [facility] [address] [id number] [address] [place] [address], [place] [address] Jul, [facility] [address] [id number] [address] [place] [address], [place] [address] Jul, [facility] [address] [id number] [address] [place] [address], [place] [address] Jul, [facility] [address] [id number] [address] [place] [address], [place] [address] Jul, [facility] [address] [id number] [address] [place] [address], [place] [address] Jun, [facility] [address] [id number] [address] [place] [address], [place] [address] Jun, [facility] [address] [id number] [address] [place] [address], [place] [address] Jun, [facility] [address] [id number] [address] [place] [address], [place] [address] 16 Jun, 2014 [facility] [address] [id number] [address] [place] [address], [place] [address] 15 Jun, 2014 [facility] [address] [id number] [address] [place] [address], [place] [address] 15 Jun, 2014 [facility] [address] [id number] [address] [place] [address], [place] [address] 05 Jun, 2014 [facility] [address] [id number] [address] [place] [address], [place] [address] Jun, [facility] [address] [id number] [address] [place] [address], [place] [address] Jun, [facility] [address] [id number] [address] [place] [address], [place] [address] Jun, [facility] [address] [id number] [address] [place] [address], [place] [address] 29 May, 2014 [facility] [address] [id number] [address] [place] [address], [place] [address] 29 May, 2013 [facility] [address] [id number] [address] [place] [address], [place] [address] 26 May, 2013 [facility] [address] [id number] [address] [place] [address], [place] [address] 26 May, 2013 [facility] [address] [id number] [address] [place] [address], [place] [address] 17 May, 2013 [facility] [address] [id number] [address] [place] [address], [place] [address] 17 May, 2013 [facility] [address] [id number] [address] [place] [address], [place] [address] 15 May, 2013 [facility] [address] [id number] [address] [place] [address] 15 May, 2013 [facility] [address] [id number] [address] [place] [address], [place] [address] 15 May, 2013 [facility] [address] [id number] [address] [place] [address], [place] [address] 15 May, 2013 [facility] [address] [id number] [address] [place] [address], [place] [address] 10 May, 2013 [facility] [address] [id number] [address] [place] [address], [place] [address] May, [facility] [address] [id number] [address] [place] [address], [place] [address] May, [facility] [address] [id number] [address] [place] [address], [place] [address] May, [facility] [address] [id number] [address] [place] [address], [place] [address] May, [facility] [address] [id number] [address] [place] [address], [place] [address] May, [facility] [address] [id number] [address] [place] [address], [place] [address] Apr, [facility] [address] [id number] [address] [place] [address], [place] [address] Apr, [facility] [address] [id number] [address] [place] [address], [place] [address] Apr, [facility] [address] [id number] [address] [place] [address], [place] [address] Apr, [facility] [address] [id number] [address] [place] [address], [place] [address] Apr, [facility] [address] [id number] [address] [place] [address], [place] [address] Apr, [facility] [address] [id number] [address] [place] [address], [place] [address] Apr, [facility] [address] [id number] [address] [place] [address], [place] [address] Apr, [facility] [address] [id number] [address] [place] [address], [place] [address] Apr, [facility] [address] [id number] [address] [place] [address], [place] [address] Apr, [facility] [address] [id number] [address] [place] [address], [place] [address] Apr, [facility] [address] [id number] [facility] [place] [address] Apr, [facility] [address] [id number] [facility] [place] [address] Apr, [facility] [address] [id number] [facility] [place] [address] Apr, [facility] [address] [id number] [facility] [address] Apr, [facility] [address] [id number] [facility] [place] [address] Mar, [facility] [address] [id number] [facility] [place] [address] Mar, [facility] [address] [id number] [address] [place] [address], [place] [address] Mar, [facility] [address] [id number] [address] [place] [address], [place] [address] Mar, [facility] [address] [id number] [address] [place] [address], [place] [address] Mar, [facility] [address] [id number] [address] [place] [address], [place] [address] Mar, [facility] [address] [id number] [address] [place] [address], [place] [address] Mar, [facility] [address] [id number] [address] [place] [address], [place] [address] Mar, [facility] [address] [id number] [address] [place] [address], [place] [address] Mar, [facility] [address] [id number] [address] [place] [address], [place] [address] Mar, [facility] [address] [id number] [address] [place] [address], [place] [address] Mar, [facility] [address] [id number] [address] [place] [address], [place] [address] Mar, 2013 [facility] [address] [id number] [facility] [place] [address] Mar, 2013 [facility] [address] [id number] [facility] [address] Mar, 2013 [facility] [address] [id number] [facility] [place] [address] Mar, 2013 [facility] [address] [id number] [address] [place] [address], [place] [address] Mar, 2013 [facility] [address] [id number] [address] [place] [address], [place] [address] Mar, [facility] [address] [id number] [address] [place] [address], [place] [address] Mar, [facility] [address] [id number] [address] [place] [address], [place] [address] Feb, [facility] [address] [id number] [address] [place] [address], [place] [address] Feb, [facility] [address] [id number] [address] [place] [address], [place] [address] Feb, [facility] [address] [id number] [address] [place] [address], [place] [address] Feb, [facility] [address] [id number] [address] [place] [address], [place] [address] Feb, [facility] [address] [id number] [address] [place] [address], [place] [address] Feb, [facility] [address] [id number] [address] [place] [address], [place] [address] Feb, [facility] [address] [id number] [address] [place] [address], [place] [address] Feb, [facility] [address] [id number] [address] [place] [address], [place] [address] Feb, [facility] [address] [id number] [facility] [place] [address] Feb, [facility] [address] [id number] [address] [place] [address], [place] [address] Feb, [facility] [address] [id number] [facility] [place] [address] Feb, [facility] [address] [id number] [address] [place] [address], [place] [address] Feb, [facility] [address] [id number] [address] [place] [address], [place] [address] Feb, [facility] [address] [id number] [address] [place] [address], [place] [address] January, [facility] [address] [id number] [address] [place] [address], [place] [address] January, [facility] [address] [id number] [address] [place] [address], [place] [address] January, [facility] [address] [id number] [address] [place] [address], [place] [address] January, [facility] [address] [id number] [address] [place] [address], [place] [address] January, [facility] [address] [id number] [address] [place] [address], [place] [address] January, [facility] [address] [id number] [address] [place] [address], [place] [address] January, [facility] [address] [id number] [address] [place] [address], [place] [address] January, [facility] [address] [id number] [address] [place] [address], [place] [address] January, [facility] [address] [id number] [address] [place] [address], [place] [address] January, [facility] [address] [id number] [address] [place] [address], [place] [address] January, [facility] [address] [id number] [facility] [place] [address] January, [facility] [address] [id number] [address] [place] [address], [place] [address] January, [facility] [address] [id number] [address] [place] [address], [place] [address] January, [facility] [address] [id number] [address] [place] [address], [place] [address] Dec, [facility] [address] [id number] [address] [place] [address], [place] [address] Dec, [facility] [address] [id number] [address] [place] [address], [place] [address] Dec, [facility] [address] [id number] [address] [place] [address], [place] [address] Dec, [facility] [address] [id number] [address] [place] [address], [place] [address] Dec, [facility] [address] [id number] [address] [place] [address], [place] [address] Dec, [facility] [address] [id number] [address] [place] [address], [place] [address] Dec, [facility] [address] [id number] [address] [place] [address], [place] [address] Dec, [facility] [address] [id number] [address] [place] [address], [place] [address] Dec, [facility] [address] [id number] [address] [place] [address], [place] [address] Dec, [facility] [address] [id number] [address] [place] [address], [place] [address] Nov, [facility] [address] [id number] [address] [place] [address], [place] [address] Nov, [facility] [address] [id number] [address] [place] [address], [place] [address] Nov, [facility] [address] [id number] [address] [place] [address], [place] [address] Nov, [facility] [address] [id number] [address] [place] [address], [place] [address] Nov, [facility] [address] [id number] [address] [place] [address], [place] [address] Nov, [facility] [address] [id number] [address] [place] [address], [place] [address] Nov, [facility] [address] [id number] [address] [place] [address], [place] [address] Nov, [facility] [address] [id number] [address] [place] [address], [place] [address] Nov, [facility] [address] [id number] [address] [place] [address], [place] [address] Nov, [facility] [address] [id number] [address] [place] [address], [place] [address] Oct, [facility] [address] [id number] [address] [place] [address], [place] [address] Oct, [facility] [address] [id number] [address] [place] [address], [place] [address] Oct, [facility] [address] [id number] [address] [place] [address], [place] [address] Oct, [facility] [address] [id number] [address] [place] [address], [place] [address] Oct, [facility] [address] [id number] [address] [place] [address], [place] [address] Oct, [facility] [address] [id number] [address] [place] [address], [place] [address] 14 Oct, 2013 [facility] [address] [id number] [address] [place] [address], [place] [address] Oct, [facility] [address] [id number] [address] [place] [address], [place] [address] Oct, [facility] [address] [id number] [address] [place] [address], [place] [address] Oct, [facility] [address] [id number] [address] [place] [address], [place] [address] Oct, [facility] [address] [id number] [address] [place] [address], [place] [address] Oct, [facility] [address] [id number] [address] [place] [address], [place] [address] Oct, [facility] [address] [id number] [address] [place] [address], [place] [address] Oct, [facility] [address] [id number] [address] [place] [address], [place] [address] Sep, [facility] [address] [id number] [address] [place] [address], [place] [address] Sep, [facility] [address] [id number] [address] [place] [address], [place] [address] Sep, [facility] [address] [id number] [address] [place] [address], [place] [address] Sep, [facility] [address] [id number] [address] [place] [address], [place] [address] Sep, [facility] [address] [id number] [address] [place] [address], [place] [address] Sep, [facility] [address] [id number] [address] [place] [address], [place] [address] Sep, [facility] [address] [id number] [address] [place] [address], [place] [address] Sep, [facility] [address] [id number] [address] [place] [address], [place] [address] Sep, [facility] [address] [id number] [address] [place] [address], [place] [address] 08 Sep, 2013 [facility] [place] [address] [id number] [address] [place] [address], [place] [address] 10 Aug, 2013 [facility] [address] [id number] [address] [place] [address], [place] [address] Aug, [facility] [address] [id number] [address] [place] [address], [place] [address] Jul, [facility] [address] [id number] [address] [place] [address], [place] [address] Jul, [facility] [address] [id number] [address] [place] [address], [place] [address] Jul, [facility] [address] [id number] [address] [place] [address], [place] [address] Jul, [facility] [place] [address] [id number] [address] [place] [address], [place] [address] Jul, [facility] [place] [address] [id number] [address] [place] [address], [place] [address] Jul, [facility] [place] [address] [id number] [address] [place] [address], [place] [address] Jul, [facility] [place] [address] [id number] [address] [place] [address], [place] [address] Jul, [facility] [place] [address] [id number] [address] [place] [address], [place] [address] Jul, [facility] [address] [id number] [address] [place] [address], [place] [address] Jul, [facility] [address] [id number] [address] [place] [address], [place] [address] Jul, [facility] [address] [id number] [address] [place] [address], [place] [address] Jul, [facility] [address] [id number] [address] [place] [address], [place] [address] Jul, [facility] [address] [id number] [address] [place] [address], [place] [address] 05 Jul, 2012 [facility] [address] [id number] [address] [place] [address], [place] [address] Jul, 2012 [facility] [address] [id number] [address] [place] [address], [place] [address] Jul, 2012 [facility] [address] [id number] [address] [place] [address], [place] [address] Jul, 2012 [facility] [address] [id number] [address] [place] [address], [place] [address] Jul, 2012 [facility] [address] [id number] [address] [place] [address], [place] [address] Jul, [facility] [address] [id number] [address] [place] [address], [place] [address] Jun, 2012 [facility] [address] [id number] [address] [place] [address], [place] [address] 16 Jun, 2012 [facility] [address] [id number] [address] [place] [address], [place] [address] 16 Jun, 2012 [facility] [address] [id number] [address] [place] [address], [place] [address] 16 Jun, 2012 [facility] [address] [id number] [address] [place] [address], [place] [address] 16 Jun, 2012 [facility] [address] [id number] [address] [place] [address], [place] [address] 16 Jun, 2012 [facility] [address] [id number] [address] [place] [address], [place] [address] 10 Jun, 2013 [facility] [address] [id number] [address] [place] [address], [place] [address] 10 Jun, 2012 [facility] [address] [id number] [address] [place] [id number] 09 Jun, 2012 [facility] [address] [id number] [address] [place] [id number] Jun, [facility] [address] [id number] [address] [place] [address], [place] [address] Jun, [facility] [address] [id number] [address] [place] [address], [place] [address] May, [facility] [address] [id number] [address] [place] [address], [place] [address] May, [facility] [address] [id number] [address] [place] [address], [place] [address] May, 2012 [facility] [address] [id number] [address] [place] [address], [place] [address] 17 May, 2013 [facility] [address] [id number] [address] [place] [address], [place] [address] May, [facility] [address] [id number] [address] [place] [address], [place] [address] May, [facility] [address] [id number] [address] [place] [address], [place] [address] May, [facility] [address] [id number] [address] [place] [address], [place] [address] May, [facility] [address] [id number] [address] [place] [address], [place] [address] Apr, [facility] [address] [id number] [address] [place] [address], [place] [address] Apr, [facility] [address] [id number] [address] [place] [address], [place] [address] Apr, [facility] [address] [id number] [address] [place] [address], [place] [address] Apr, [facility] [address] [id number] [address] [place] [address], [place] [address] Apr, [facility] [address] [id number] [address] [place] [address], [place] [address] Mar, [facility] [address] [id number] [address] [place] [address], [place] [address] Mar, [facility] [place] [address] [id number] [address] [place] [address], [place] [address] Mar, [facility] [address] [id number] [address] [place] [address], [place] [address] Mar, [facility] [place] [address] [id number] [address] [place] [address], [place] [address] Mar, [facility] [address] [id number] [address] [place] [address], [place] [address] Mar, [facility] [address] [id number] [address] [place] [address], [place] [address] Mar, [facility] [place] [address] [id number] [address] [place] [address], [place] [address] Mar, [facility] [address] [id number] [address] [place] [address], [place] [address] Feb, [facility] [place] [address] [id number] [address] [place] [address], [place] [address] Feb, [facility] [place] [address] [id number] [address] [place] [address], [place] [address] January, [facility] [address] [id number] [address] [place] [address], [place] [address] January, [facility] [place] [address] [id number] [address] [place] [address], [place] [address] Dec, [facility] [address] [id number] [address] [place] [address], [place] [address] Dec, [facility] [address] [id number] [address] [place] [address], [place] [address] Nov, [facility] [address] [id number] [address] [place] [address], [place] [address] Nov, [facility] [address] [id number] [address] [place] [address], [place] [address] Nov, [facility] [place] [address] [id number] [address] [place] [address], [place] [address] Nov, [facility] [address] [id number] [address] [place] [address], [place] [address] Oct, [facility] [address] [id number] [address] [place] [address], [place] [address] Oct, [facility] [address] [id number] [address] [place] [address], [place] [address] Oct, [facility] [address] [id number] [address] [place] [address], [place] [address] Oct, [facility] [address] [id number] [address] [place] [address], [place] [address] 16 Oct, 2012 [facility] [address] [id number] [address] [place] [address], [place] [address] 14 Oct, 2012 [facility] [address] [id number] [address] [place] [address], [place] [address] 08 Oct, 2012 [facility] [place] [address] [id number] [address] [place] [address], [place] [address] 07 Oct, 2012 [facility] [address] [id number] [address] [place] [address], [place] [address] 03 Oct, 2012 [facility] [place] [address] [id number] [address] [place] [address], [place] [address] Sep, [facility] [address] [id number] [address] [place] [address], [place] [address] Sep, [facility] [address] [id number] [address] [place] [address], [place] [address] Sep, [facility] [address] [id number] [address] [place] [address], [place] [address] Sep, [facility] [address] [id number] [address] [place] [address], [place] [address] Sep, [facility] [address] [id number] [address] [place] [address], [place] [address] 10 Sep, 2012 [facility] [place] [address] [id number] [address] [place] [address], [place] [address] Sep, [facility] [place] [address] [id number] [address] [place] [address], [place] [address] Sep, [facility] [address] [id number] [address] [place] [address], [place] [address] Aug, [facility] [address] [id number] [address] [place] [address], [place] [address] Aug, [facility] [place] [address] [id number] [address] [place] [address], [place] [address] Aug, [facility] [address] [id number] [address] [place] [address], [place] [address] Aug, [facility] [address] [id number] [address] [place] [address], [place] [address] Aug, [facility] [address] [id number] [address] [place] [address], [place] [address] Aug, [facility] [place] [address] [id number] [address] [place] [address], [place] [address] Aug, [facility] [address] [id number] [address] [place] [address], [place] [address] Aug, [facility] [place] [address] [id number] [address] [place] [address], [place] [address] Jul, [facility] [address] [id number] [address] [place] [address], [place] [address] Jul, [facility] [address] [id number] [address] [place] [address], [place] [address] Jul, [facility] [address] [id number] [address] [place] [address], [place] [address] Jul, [facility] [address] [id number] [address] [place] [address], [place] [address] Jul, [facility] [address] [id number] [address] [place] [address], [place] [address] Jul, [facility] [address] [id number] [address] [place] [address], [place] [address] Jun, [facility] [address] [id number] [address] [place] [address], [place] [address] Jun, [facility] [address] [id number] [address] [place] [address], [place] [address] Jun, [facility] [address] [id number] [address] [place] [address], [place] [address] Jun, [facility] [address] [id number] [address] [place] [address], [place] [address] Jun, [facility] [address] [id number] [address] [place] [address], [place] [address] Jun, [facility] [address] [id number] [address] [place] [address], [place] [address] Jun, [facility] [address] [id number] [address] [place] [address], [place] [address] Jun, [facility] [address] [id number] [address] [place] [address], [place] [address] Jun, [facility] [address] [id number] [address] [place] [address], [place] [address] 26 May, 2012 [facility] [address] [id number] [address] [place] [address] 24 May, 2012 [facility] [address] [id number] [address] [place] [address], [place] [address] 18 May, 2012 [facility] [address] [id number] [address] [place] [address], [place] [address] 30 Apr, 2012 [facility] [address] [id number] [address] [place] [address], [place] [address] Apr, [facility] [address] [id number] [address] [place] [address] Apr, [facility] [address] [id number] [address] [place] [address], [place] [address] Apr, [facility] [address] [id number] [address] [place] [address], [place] [address] Apr, [facility] [address] [id number] [address] [place] [address], [place] [address] Apr, [facility] [address] [id number] [address] [place] [address], [place] [address] Mar, [facility] [address] [id number] [address] [place] [address], [place] [address] Mar, [facility] [address] [id number] [address] [place] [address], [place] [address] Mar, [facility] [address] [id number] [address] [place] [address], [place] [address] Mar, [facility] [address] [id number] [address] [place] [address], [place] [address] Feb, [facility] [address] [id number] [address] [place] [address], [place] [address] Feb, [facility] [address] [id number] [address] [place] [address], [place] [address] Feb, [facility] [address] [id number] [address] [place] [address], [place] [address] Feb, [facility] [address] [id number] [address] [place] [address], [place] [address] Feb, [facility] [address] [id number] [address] [place] [address], [place] [address] January, [facility] [address] [id number] [address] [place] [address], [place] [address] January, [facility] [address] [id number] [address] [place] [address], [place] [address] January, [facility] [address] [id number] [address] [place] [address], [place] [address] January, [facility] [address] [id number] [address] [place] [address], [place] [address] January, [facility] [address] [id number] [address] [place] [address], [place] [address] January, [facility] [address] [id number] [address] [place] [address], [place] [address] Dec, [facility] [address] [id number] [address] [place] [address], [place] [address] Dec, [facility] [address] [id number] [address] [place] [address], [place] [address] Dec, [facility] [address] [id number] [address] [place] [address], [place] [address] Dec, [facility] [address] [id number] [address] [place] [address], [place] [address] Dec, [facility] [address] [id number] [address] [place] [address], [place] [address] Nov, [facility] [address] [id number] [address] [place] [address], [place] [address] Nov, [facility] [address] [id number] [address] [place] [address], [place] [address] Nov, [facility] [address] [id number] [address] [place] [address], [place] [address] Nov, [facility] [address] [id number] [address] [place] [address], [place] [address] Oct, [facility] [address] [id number] [address] [place] [address], [place] [address] Oct, [facility] [address] [id number] [address] [place] [address], [place] [address] Oct, [facility] [address] [id number] [address] [place] [address], [place] [address] Oct, [facility] [address] [id number] [address] [place] [address], [place] [address] Oct, [facility] [address] [id number] [address] [place] [address], [place] [address] Sep, [facility] [address] [id number] [address] [place] [address], [place] [address] Sep, [facility] [address] [id number] [address] [place] [address], [place] [address] Sep, [facility] [address] [id number] [address] [place] [address], [place] [address] Sep, [facility] [address] [id number] [address] [place] [address], [place] [address] Sep, [facility] [address] [id number] [address] [place] [address], [place] [address] Sep, [facility] [address] [id number] [address] [place] [address], [place] [address] Aug, [facility] [address] [id number] [address] [place] [address], [place] [address] Aug, [facility] [address] [id number] [address] [place] [address], [place] [address] Aug, [facility] [address] [id number] [address] [place] [address], [place] [address] Jul, [facility] [address] [id number] [address] [place] [address] Jul, [facility] [address] [id number] [address] [place] [address], [place] [address] Jul, [facility] [address] [id number] [address] [place] [address], [place] [address] Jul, [facility] [address] [id number] [address] [place] [address], [place] [address] Jun, [facility] [address] [id number] [address] [place] [address], [place] [address] 31 Jun, 2011 [facility] [address] [id number] [address] [place] [address], [place] [address] 18 Jun, 2011 [facility] [address] [id number] [address] [place] [address], [place] [address] 10 Jun, 2011 [facility] [address] [id number] [address] [place] [address], [place] [address] 10 Jun, 2011 [facility] [address] [id number] [address] [place] [address], [place] [address] 10 Jun, 2011 [facility] [address] [id number] [address] [place] [address], [place] [address] 11 Mar, 2011 [facility] [address] [id number] [address] [place] [address], [place] [address] 18 Dec, 2010 [facility] [address] [id number] [address] [place] [address], [place] [address] 11 Dec, 2010 [facility] [place] [address] [id number] [address] [place] [address], [place] [address] 18 Nov, 2010 [facility] [place] [address] [id number] [address] [place] [address], [place] [address] 16 Nov, 2010 [facility] [address] [id number] [address] [place] [address], [place] [address] 10 Sep, 2010 [facility] [address] [id number] [address] [place] [address], [place] [address] 31 Aug, 2010 [facility] [address] [id number] [address] [place] [address], [place] [address] Aug, [facility] [address] [id number] [address] [place] [address], [place] [address] Aug, [facility] [address] [id number] [address] [place] [address], [place] [address] Aug, [facility] [address] [id number] [address] [place] [address], [place] [address] Aug, [facility] [address] [id number] [address] [place] [address], [place] [address] 14 Aug, 2010 [facility] [address] [id number] [address] [place] [address], [place] [address] 08 Aug, 2010 [facility] [address] [id number] [address] [place] [address], [place] [id number] 08 Aug, 2010 [facility] [address] [id number] [address] [place] [address], [place] [address] 07 Aug, 2010 [facility] [address] [id number] [address] [place] [address], [place] [id number] 06 Aug, 2010 [facility] [address] [id number] [address] [place] [address], [place] [id number] Aug, [facility] [address] [id number] [address] [place] [address], [place] [address] Aug, [facility] [address] [id number] [address] [place] [id number] Jul, [facility] [address] [id number] [address] [place] [address], [place] [address] Jul, [facility] [address] [id number] [address] [place] [id number] Jul, [facility] [address] [id number] [address] [place] [id number] Jul, [facility] [address] [id number] [address] [place] [id number] Jul, [facility] [address] [id number] [address] [place] [id number] Jul, [facility] [address] [id number] [address] [place] [id number] Jun, [facility] [address] [id number] [address] [place] [id number] Jun, [facility] [address] [id number] [address] [place] [id number] 19 Jun, 2010 [facility] [address] [id number] [address] [place] [address], [place] [id number] 13 Jun, 2010 [facility] [address] [id number] [address] [place] [id number] 16 Apr, 2010 [facility] [address] [id number] [address] [place] [address], [place] [address] 20 Mar, 2010 [facility] [address] [id number] [address] [place] [address], [place] [id number] 17 Feb, 2010 [facility] [address] [id number] [address] [place] [address], [place] [address] January, [facility] [address] [id number] [address] [place] [address], [place] [id number] 15 Dec, 2009 [facility] [address] [id number] [address] [place] [address], [place] [address] Nov, [facility] [address] [id number] [address] [place] [address], [place] [address] Aug, [facility] [address] [id number] [address] [place] [address], [place] [address] Aug, [facility] [address] [id number] [address] [place] [address], [place] [address] Aug, [facility] [address] [id number] [address] [place] [id number] Jul, [facility] [address] [id number] [address] [place] [id number] Jul, [facility] [address] [id number] [address] [place] [id number] 07 Jul, 2009 [facility] [address] [id number] [address] [place] [address], [place] [id number] 30 Jun, 2009 [facility] [address] [id number] [address] [place] [address], [place] [address] 29 Jun, 2009 [facility] [address] [id number] [address] [place] [id number] Jun, [facility] [address] [id number] [address] [place] [id number] Jun, [facility] [address] [id number] [address] [place] [phone] Jun, [facility] [address] [id number] [address] [place] [phone] Jun, [facility] [address] [id number] [address] [place] [id number] Apr, [facility] [address] [id number] [address] [place] [id number] Apr, [facility] [address] [id number] [address] [place] [phone] Feb, [facility] [address] [facility] [id number] [address] [place] [phone] January, [facility] [address] [id number] [address] [place] [phone] Dec, IMMUNIZATIONS No Known Immunizations SOCIAL HISTORY Never Assessed REASON FOR VISIT [facility] [place] PLAN OF CARE VITAL SIGNS MEDICATIONS Unknown [...] History inability to urinate 09/16/15 Hospitalization History [facility] inpatient [facility] health ea rly 2000's Hospitalization History hyperkalemia 10/2017 Hospitalization History fluid in lung
--- OUTSIDE RECORDS SUMMARY | 2020-03-01 17:36 | XMS REPORT ---
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 [employer] Name Role Phone Migration, Doctor Unavailable Unavailable PROBLEMS Type Condition ICD9-CM Code [id number] Code Onset Dates Condition S tatus SNOMED Code Problem Cough R05 Active 33682009 Problem Benign prostatic hyperplasia with lower urinary tract symptoms, unspecified morphology N40.1 Active 25744 6007 Problem Eustachian tube dysfunction, unspecified laterality H69.80 Active 39781824 Problem Chronic pain G89.29 Active 3536988 1 Problem DM neuro manif type II E11.49 Active 92304518 Problem Diabetes E11.9 Active 32623604 Problem Leukocytosis D72.829 Active 7319210 06 Problem Falling R29.6 Active 703374922 Problem Pressure ulcer of other site, stage 3 L89.893 Active 539234795 Problem 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 Active 154659089 Problem Eye exam abnormal R93.8 Active 16 2069740 Problem Dysuria R30.0 Active 74613810 Problem Hypokalemia E87.6 Active 00774619 Problem Morbid obesity E66.01 Active 21281 6002 Problem Anxiety F41.9 Active 18940901 Problem Diabetic polyneuropathy associated with type 2 d iabetes mellitus E11.42 Active 46328546 Problem Essential hypertension I10 Active 86816747 Problem Bilateral primary osteoarthritis of knee M17.0 Active 148438632 Problem Polyneuropathy associated with underlying disease G63 Active 762941052 Problem Anemia of chronic illness D63.8 Acti ve 805246525 Problem Lymphocytosis D72.820 Active 699300 09 Problem Retinal edema H35.81 Active 769110 6 Problem Chronic lymphocytic leukemia C91.10 A ctive 51216538 Problem Bipolar disorder, in partial remission, most rec ent episode depressed F31.75 Active 66604202 Problem Pure hypercholesterolemia E78.00 Acti ve 994494801 Problem Primary osteoarthritis of right knee M17.11 Active 118406501805422 Problem Bipolar disorder F31.9 Active 137 06470 Problem Bipolar I disorder, most recent episode (or curr ent) mixed, moderate F31.62 Active 93497924 Problem Chronic diastolic (congestive) heart failure I50.3 2 Active 613851622 Problem Reactive airway disease J45.909 Active 446705783800 Problem Insomnia, unspecified type G47.00 Act sharon 967271565 Problem Other chronic pain G89.29 Active 8 0044833 Problem Other iron deficiency anemia D50.8 A ctive 22833899 Problem Mild cognitive impairment G31.84 Acti ve 899026950 Problem Skin cancer C44.90 Active 46537755 7 ALLERGIES No Information ENCOUNTERS Encounter Location Date Diagnosis [facility] [address] [facility] [id number] [address] [place] [id number] Mar, [facility] [address] [facility] [id number] [address] [place] [id number] January, [facility] [address] [facility] [id number] [address] [place] [id number] January, [facility] [address] [facility] [id number] [address] [place] [id number] January, [facility] [address] [facility] [id number] [address] [place] [address] Dec, [facility] [address] [facility] [id number] [address] [place] [id number] Dec, Chronic pain G89.29 and Bipo lar disorder F31.9 [facility] [address] [facility] [id number] [address] [place] [address] Dec, Edema of both lower extremit ies R60.0 [facility] [address] [facility] [id number] [address] [place] [id number] Dec, Bipolar disorder F31.9 [facility] [address] [facility] [id number] [address] [place] [id number] Dec, Bipolar disorder, in partial remission, most recent episode depressed F31.75 and Mild cognitive impairment G31.84 [facility] [address] [facility] [id number] [address] [place] [address] Nov, [place] [address] [place] [id number] [address] [place] [address] Nov, Chronic pain G89.29 [place] [address] [place] [id number] [address] [place] [address] Nov, Bipolar disorder, in partial remission, most recent episode depressed F31.75 and Mild cognitive impairment G31.84 [place] [id number] [place] [address] Nov, Bipolar disorder F31.9 [place] [id number] [address] [place] [id number] 04 Nov, 2018 Encounter for Medicare annua [...] unspecified morphology N40.1 and Essential hypertension I10 [place] [address] [place] [id number] [address] [place] [address] Oct, Chronic pain G89.29 [place] [address] [place] [id number] [address] [place] [address] Oct, Diabetes E11.9 [place] [address] [facility] [id number] [address] [place] [id number] Oct, Bipolar I disorder, most rec ent episode (or current) mixed, moderate F31.62 and Mild cognitive impairment G31.84 [place] [address] [place] [id number] [address] [place] [id number] Oct, Bipolar I disorder, most rec ent episode (or current) mixed, moderate F31.62 and Mild cognitive impairment G31.84 [place] [address] [facility] [id number] [address] [place] [address] Sep, Bipolar I disorder, most rec ent episode (or current) mixed, moderate F31.62 and Mild cognitive impairment G31.84 [place] [address] [place] [id number] [address] [place] [address] Sep, [place] [address] [place] [id number] [address] [place] [address] Sep, Diabetes E11.9 ; Hypoxia R09 .02 ; Hyperglycemia R73.9 ; Therapeutic drug monitoring Z51.81 ; BMI 50.0-59.9, adult Z68.43 and Skin cancer C44.90 [place] [address] [place] [id number] [address] [place] [id number] Sep, Chronic pain G89.29 [place] [address] [place] [id number] [address] [place] [address] Sep, Bipolar I disorder, most rec ent episode (or current) mixed, moderate F31.62 [place] [address] [place] [id number] [address] [place] [address] Sep, [place] [address] [place] [id number] [address] [place] [address] Sep, [place] [address] [place] [id number] [address] [place] [address] Aug, Chronic pain G89.29 [place] [address] [place] [id number] [address] [place] [address] Aug, Bipolar I disorder, most rec ent episode (or current) mixed, moderate F31.62 [place] [address] [place] [id number] [address] [place] [id number] Aug, Bipolar I disorder, most rec ent episode (or current) mixed, moderate F31.62 and Mild cognitive impairment G31.84 [place] [address] [place] [id number] [address] [place] [address] Jul, [facility] [address] [id number] [address] [place] [address] Jul, Chronic pain G89.29 [facility] [address] [id number] [address] [place] [address] Jul, Bipolar I disorder, most rec ent episode (or current) mixed, moderate F31.62 and Mild cognitive impairment G31.84 [facility] [address] [id number] [address] [place] [address] Jul, Bipolar I disorder, most rec ent episode (or current) mixed, moderate F31.62 and MCI (mild cognitive impairment) G31.84 [facility] [address] [id number] [address] [place] [address] Jul, [facility] [address] [id number] [address] [place] [phone] Jul, [facility] [address] [id number] [address] [place] [address] Jul, Bipolar I disorder, most rec ent episode (or current) mixed, moderate F31.62 [facility] [address] [id number] [address] [place] [address] Jul, Chronic pain G89.29 [facility] [address] [id number] [address] [place] [id number] Jun, Bipolar I disorder, most rec ent episode (or current) mixed, moderate F31.62 [facility] [address] [id number] [address] [place] [id number] Jun, Pre-procedure lab exam Z01.8 12 [facility] [address] [id number] [address] [place] [id number] Jun, [facility] [address] [id number] [place] [id number] Jun, [facility] [address] [id number] [address] [place] [id number] Jun, [place] [id number] [place] [id number] [address] [place] [address] Jun, Forgetfulness R68.89 ; Pre-s yncope R55 ; Localized edema R60.0 ; Other iron deficiency anemia D50.8 and BMI 50.0-59.9, adult Z68.43 [place] [address] [place] [id number] [address] [place] [address] Jun, Chronic pain G89.29 [place] [address] [place] [id number] [address] [place] [address] Jun, Chronic pain G89.29 [place] [address] [place] [id number] [place] [address] Jun, Bipolar I disorder, most rec ent episode (or current) mixed, moderate F31.62 [place] [address] [place] [id number] [address] [place] [address] May, Chronic pain G89.29 [place] [address] [place] [id number] [address] [place] [address] Apr, [place] [address] [place] [id number] [place] [address] Apr, Chronic pain G89.29 [place] [address] [place] [id number] [address] [place] [address] Apr, Primary osteoarthritis of ri ght knee M17.11 [place] [address] [place] [id number] [address] [place] [id number] Mar, [place] [address] [place] [id number] [address] [place] [id number] Mar, BMI 50.0-59.9, adult Z68.43 and Bipolar disorder, in partial remission, most recent episode depressed F31.75 [place] [address] [place] [id number] [address] [place] [address] Mar, Diabetes E11.9 ; Pure hyperc holesterolemia E78.00 ; Essential hypertension I10 ; Nausea with vomiting, unspecified R11.2 and Headache, unspecified headache type R51 [facility] [address] [facility] [id number] [address] [place] [address] Mar, Bipolar I disorder, most rec ent episode (or current) mixed, moderate F31.62 [facility] [address] [place] [id number] [address] [place] [id number] Mar, Bipolar I disorder, most rec ent episode (or current) mixed, moderate F31.62 [place] [address] [facility] [id number] [address] [place] [address] Mar, Chronic pain G89.29 [place] [address] [facility] [id number] [address] [place] [id number] Mar, Bipolar I disorder, most rec ent episode (or current) mixed, moderate F31.62 [place] [address] [place] [id number] [address] [place] [id number] Feb, Bipolar I disorder, most rec ent episode (or current) mixed, moderate F31.62 [place] [address] [facility] [id number] [address] [place] [address] Feb, Chronic pain G89.29 [facility] [address] [facility] [id number] [address] [place] [address] Feb, Decubitus ulcer of right josselin t, stage 3 L89.893 and BMI 50.0-59.9, adult Z68.43 [facility] [address] [place] [id number] [address] [place] [id number] Feb, Bipolar I disorder, most rec ent episode (or current) mixed, moderate F31.62 [place] [address] [place] [id number] [address] [place] [id number] Feb, [place] [address] [facility] [id number] [address] [place] [id number] January, [place] [address] [place] [id number] [address] [place] [address] January, Chronic pain G89.29 [place] [address] [facility] [id number] [address] [place] [id number] January, Bipolar I disorder, most rec ent episode (or current) mixed, moderate F31.62 [place] [address] [facility] [id number] [address] [place] [id number] January, Bipolar I disorder, most rec ent episode (or current) mixed, moderate F31.62 [place] [address] [facility] [id number] [address] [place] [address] Dec, Bipolar I disorder, most rec ent episode (or current) mixed, moderate F31.62 and BMI 50.0-59.9, adult Z68.43 [place] [address] [facility] [id number] [address] [place] [address] Dec, Bipolar I disorder, most rec ent episode (or current) mixed, moderate F31.62 [place] [address] [place] [id number] [address] [place] [address] Dec, Chronic pain G89.29 [place] [address] [place] [id number] [address] [place] [address] Dec, DM neuro manif type II E11.4 9 ; Right flank pain R10.9 ; FDC 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 Z79.891 ; Encounter for medication monitoring Z51.81 and BMI 50.0-59.9, adult Z68.43 [place] [address] [place] [id number] [address] [place] [address] Dec, Bipolar I disorder, most rec ent episode (or current) mixed, moderate F31.62 [place] [address] [place] [id number] [address] [place] [id number] Nov, Bipolar I disorder, most rec ent episode (or current) mixed, moderate F31.62 [place] [address] [place] [id number] [address] [place] [address] Nov, Chronic pain G89.29 [facility] [address] [facility] [id number] [address] [place] [id number] Nov, Bipolar I disorder, most rec ent episode (or current) mixed, moderate F31.62 [facility] [address] [facility] [id number] [address] [place] [address] Nov, Hypokalemia E87.6 [facility] [address] [place] [id number] [address] [place] [address] Nov, Bipolar I disorder, most rec ent episode (or current) mixed, moderate F31.62 [facility] [address] [place] [id number] [address] [place] [address] Oct, Chronic pain G89.29 [facility] [address] [place] [id number] [address] [place] [address] Oct, BMI 50.0-59.9, adult Z68.43 and Bipolar I disorder, most recent episode (or current) mixed, moderate F31.62 [facility] [address] [place] [id number] [address] [place] [address] Oct, Bipolar I disorder, most rec ent episode (or current) mixed, moderate F31.62 [facility] [address] [place] [id number] [address] [place] [address] Oct, [place] [address] [place] [id number] [address] [place] [address] Oct, Hypokalemia E87.6 [facility] [address] [place] [id number] [address] [place] [address] Oct, DM neuro manif type II E11.4 9 [facility] [address] [place] [id number] [address] [place] [address] Oct, Bipolar I disorder, most rec ent episode (or current) mixed, moderate F31.62 [place] [address] [place] [id number] [address] [place] [address] Oct, Bipolar I disorder, most rec ent episode (or current) mixed, moderate F31.62 [place] [address] [address] 14 Oct, 2017 Hyperkalemia E87.5 ; Falling R29.6 ; BMI 50.0-59.9, adult Z68.43 and Acute left ankle pain M25.572 [place] [address] [address] 08 Oct, 2017 DM neuro manif type II E11.4 9 [place] [address] [address] Oct, [place] [address] [address] Sep, Chronic pain G89.29 [place] [address] [address] Sep, [place] [address] [address] Sep, Bilateral primary osteoarthr itis of knee M17.[address] [address] Sep, Generalized edema R60.1 [place] [address] [address] 16 Sep, 2017 Bipolar I disorder, most rec ent episode (or current) mixed, moderate F31.62 [place] [address] [address] 15 Sep, 2017 Hypoxia R09.02 ; Other hyper volemia E87.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 ; Anemia of chronic illness D63.8 and BMI 50.0- 59.9, adult Z68.43 [place] [address] [address] Sep, [facility] [address] [id number] [address] [place] [address] Sep, Bipolar I disorder, most rec ent episode (or current) mixed, moderate F31.62 [facility] [address] [id number] [address] [place] [address] Aug, Chronic pain G89.29 [facility] [address] [id number] [address] [place] [address] Aug, Generalized edema R60.1 [facility] [address] [id number] [address] [place] [address] Aug, [facility] [address] [id number] [address] [place] [address] Aug, [facility] [address] [id number] [address] [place] [address] Aug, Bipolar I disorder, most rec ent episode (or current) mixed, moderate F31.62 [facility] [address] [id number] [address] [place] [id number] 07 Aug, 2017 Bipolar I disorder, most rec ent episode (or current) mixed, moderate F31.62 [facility] [address] [id number] [address] [place] [address] 04 Aug, 2017 Chronic pain G89.29 [facility] [address] [id number] [address] [place] [address] Jul, Bipolar I disorder, most rec ent episode (or current) mixed, moderate F31.62 [facility] [address] [id number] [address] [place] [address] Jul, Bipolar I disorder, most rec ent episode (or current) mixed, moderate F31.62 and BMI 60.0-69.9, adult Z68.44 [facility] [address] [id number] [address] [place] [address] 16 Jul, 2017 Bipolar I disorder, most rec ent episode (or current) mixed, moderate F31.62 [facility] [address] [facility] [id number] [address] [place] [address] Jul, Chronic pain G89.29 [facility] [address] [facility] [id number] [address] [place] [address] Jul, Bipolar I disorder, most rec ent episode (or current) mixed, moderate F31.62 [facility] [address] [facility] [id number] [address] [place] [address] Jun, Polyneuropathy associated wi th underlying disease G63 and Diabetes E11.9 [facility] [address] [facility] [id number] [address] [place] [id number] Jun, Bipolar I disorder, most rec ent episode (or current) mixed, moderate F31.62 [facility] [address] [facility] [id number] [address] [place] [address] Jun, Chronic pain G89.29 [facility] [address] [facility] [id number] [address] [place] [address] May, Bipolar I disorder, most rec ent episode (or current) mixed, moderate F31.62 [facility] [address] [facility] [id number] [address] [place] [address] May, Bipolar I disorder, most rec ent episode (or current) mixed, moderate F31.62 [facility] [address] [facility] [id number] [address] [place] [id number] 20 May, 2017 Diabetic polyneuropathy asso ciated with type 2 diabetes mellitus E11.42 [facility] [address] [id number] [address] [place] [id number] 18 May, 2017 Bipolar I disorder, most rec ent episode (or current) mixed, moderate F31.62 [facility] [address] [facility] [id number] [address] [place] [address] 13 May, 2017 Bipolar I disorder, most rec ent episode (or current) mixed, moderate F31.62 [facility] [address] [id number] [address] [place] [address] May, Chronic pain G89.29 [facility] [address] [id number] [address] [place] [address] Apr, Bipolar I disorder, most rec ent episode (or current) mixed, moderate F31.62 [facility] [address] [id number] [address] [place] [address] Apr, [facility] [address] [id number] [address] [place] [address] Apr, Chronic pain G89.29 and DM n euro manif type II E11.49 [facility] [address] [id number] [address] [place] [address] Apr, [facility] [address] [id number] [address] [place] [id number] Apr, Bipolar I disorder, most rec ent episode (or current) mixed, moderate F31.62 [facility] [address] [facility] [id number] [address] [place] [address] Apr, Chronic pain G89.29 [facility] [address] [facility] [id number] [address] [place] [address] Apr, Iliotibial band syndrome, le ft M76.32 [facility] [address] [facility] [id number] [address] [place] [phone] Apr, Bipolar I disorder, most rec ent episode (or current) mixed, moderate F31.62 [facility] [address] [facility] [id number] [address] [place] [phone] Mar, Bipolar I disorder, most rec ent episode (or current) mixed, moderate F31.62 [facility] [address] [facility] [id number] [address] [place] [phone] Mar, Bipolar I disorder, most rec ent episode (or current) mixed, moderate F31.62 [facility] [address] [place] [id number] [address] [place] [phone] Mar, [facility] [address] [id number] [address] [place] [id number] Mar, Bipolar I disorder, most rec ent episode (or current) mixed, moderate F31.62 [facility] [address] [id number] [address] [place] [id number] Mar, Chronic pain G89.29 [facility] [address] [id number] [address] [place] [phone] Mar, Bipolar I disorder, most rec ent episode (or current) mixed, moderate F31.62 [facility] [address] [id number] [address] [place] [id number] Mar, Bipolar I disorder, most rec ent episode (or current) mixed, moderate F31.62 [facility] [address] [facility] [id number] [address] [place] [id number] Mar, Acute pain of left knee M25. 562 ; Left hip pain M25.552 ; Generalized edema R60.1 and Tongue swelling R22.0 [facility] [address] [id number] [address] [place] [id number] Mar, [facility] [address] [facility] [id number] [address] [place] [id number] Feb, Chronic pain G89.29 [facility] [address] [facility] [id number] [address] [place] [id number] Feb, Diabetes E11.9 [facility] [address] [id number] [address] [place] [id number] January, Chronic pain G89.29 [facility] [address] [id number] [address] [place] [id number] January, [facility] [address] [facility] [id number] [address] [place] [id number] January, Bipolar I disorder, most rec ent episode (or current) mixed, moderate F31.62 [facility] [address] [id number] [address] [place] [id number] Dec, Bipolar I disorder, most rec ent episode (or current) mixed, moderate F31.62 [facility] [address] [id number] [address] [place] [id number] Dec, Chronic pain G89.29 [facility] [address] [facility] [id number] [address] [place] [id number] Dec, Bipolar I disorder, most rec ent episode (or current) mixed, moderate F31.62 [facility] [address] [facility] [id number] [address] [place] [id number] Dec, Diabetes E11.9 ; Essential h ypertension I10 ; Chronic pain G89.29 and Morbid obesity E66.01 [facility] [address] [facility] [id number] [address] [place] [id number] Dec, [facility] [address] [facility] [id number] [address] [place] [id number] Dec, Bipolar I disorder, most rec ent episode (or current) mixed, moderate F31.62 [facility] [address] [facility] [id number] [address] [place] [id number] Dec, Bipolar I disorder, most rec ent episode (or current) mixed, moderate F31.62 [facility] [address] [facility] [id number] [address] [place] [id number] Nov, Chronic pain G89.29 [facility] [address] [id number] [address] [place] [id number] Nov, Bipolar I disorder, most rec ent episode (or current) mixed, moderate F31.62 [facility] [address] [facility] [id number] [address] [place] [id number] Nov, [facility] [address] [facility] [id number] [address] [place] [id number] Nov, Bipolar I disorder, most rec ent episode (or current) mixed, moderate F31.62 [facility] [address] [facility] [id number] [address] [place] [id number] Nov, Bipolar I disorder, most rec ent episode (or current) mixed, moderate F31.62 [facility] [address] [facility] [id number] [address] [place] [id number] Nov, [facility] [address] [place] [id number] [address] [place] [id number] Nov, [facility] [address] [facility] [id number] [address] [place] [id number] Nov, [facility] [address] [facility] [id number] [address] [place] [id number] Oct, Chronic pain G89.29 [facility] [address] [place] [id number] [address] [place] [id number] Oct, Bipolar I disorder, most rec ent episode (or current) mixed, moderate F31.62 [facility] [address] [place] [id number] [address] [place] [id number] Oct, [facility] [address] 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 [id number] [address] [place] [id number] Oct, [facility] [address] [facility] [id number] [address] [place] [id number] Oct, Diabetes E11.9 [facility] [address] [facility] [id number] [address] [place] [id number] Oct, Bipolar I disorder, most rec ent episode (or current) mixed, moderate F31.62 [facility] [address] [facility] [id number] [address] [place] [id number] Sep, Chronic pain G89.29 [facility] [address] [facility] [id number] [address] [place] [id number] Sep, Chronic pain G89.29 [facility] [address] [facility] [id number] [address] [place] [id number] Aug, Chronic pain G89.29 [facility] [address] [facility] [id number] [address] [place] [id number] Jul, [facility] [address] [facility] [id number] [address] [place] [id number] Jul, Diabetes E11.9 [facility] [address] [facility] [id number] [address] [place] [id number] Jul, Chronic pain G89.29 [facility] [address] [facility] [id number] [address] [place] [id number] Jul, Bipolar I disorder, most rec ent episode (or current) mixed, moderate F31.62 [facility] [address] [place] [id number] [address] [place] [id number] Jun, Bipolar I disorder, most rec ent episode (or current) mixed, moderate F31.62 [facility] [address] [facility] [id number] [address] [place] [id number] Jun, [facility] [address] [place] [id number] [address] [place] [id number] Jun, Bipolar I disorder, most rec ent episode (or current) mixed, moderate F31.62 [facility] [address] [facility] [id number] [address] [place] [id number] 30 May, 2016 Insomnia, unspecified type G 47.00 [facility] [address] [facility] [id number] [address] [place] [id number] 22 May, 2016 Bipolar I disorder, most rec ent episode (or current) mixed, moderate F31.62 [facility] [address] [facility] [id number] [address] [place] [id number] 14 May, 2016 [facility] [address] [place] [id number] [address] [place] [id number] May, Bipolar I disorder, most rec ent episode (or current) mixed, moderate F31.62 [facility] [address] [facility] [id number] [address] [place] [id number] May, Diabetes E11.9 and Essential hypertension I10 [facility] [address] [facility] [id number] [address] [place] [address] Apr, Chronic pain G89.29 [facility] [address] [facility] [id number] [address] [place] [id number] Apr, Bipolar I disorder, most rec ent episode (or current) mixed, moderate F31.62 [place] [address] [facility] [id number] [address] [place] [id number] Apr, [place] [address] [place] [id number] [address] [place] [id number] Apr, [place] [address] [facility] [id number] [address] [place] [address] Mar, Chronic pain G89.29 ; Headac he, unspecified headache type R51 ; Neuropathy G62.9 ; Pain of right hip joint M25.551 and Essential hypertension I10 [place] [address] [facility] [id number] [address] [place] [address] Mar, Chronic pain G89.29 [place] [address] [facility] [id number] [address] [place] [id number] Mar, Bipolar I disorder, most rec ent episode (or current) mixed, moderate F31.62 [place] [id number] [facility] [id number] [address] [place] [id number] Feb, Bipolar I disorder, most rec ent episode (or current) mixed, moderate F31.62 and Insomnia, unspecified type G47.00 [facility] [address] [id number] [address] [place] [id number] Feb, Chronic pain G89.29 [facility] [address] [facility] [id number] [address] [place] [id number] Feb, Bipolar I disorder, most rec ent episode (or current) mixed, moderate F31.62 [facility] [address] [id number] [address] [place] [id number] January, Bipolar I disorder, most rec ent episode (or current) mixed, moderate F31.62 [facility] [address] [id number] [address] [place] [address] January, Chronic pain G89.29 [facility] [address] [id number] [address] [place] [id number] January, Chronic pain G89.29 and Esse ntial hypertension I10 [facility] [address] [id number] [address] [place] [id number] January, Bipolar I disorder, most rec ent episode (or current) mixed, moderate F31.62 [facility] [address] [id number] [address] [place] [id number] Dec, [facility] [address] [id number] [address] [place] [id number] Dec, [facility] [address] [id number] [address] [place] [id number] Dec, [facility] [address] [id number] [address] [place] [id number] Dec, [facility] [address] [id number] [address] [place] [id number] Nov, Reactive airway disease J45. 909 [facility] [address] [id number] [address] [place] [id number] Nov, [facility] [address] [id number] [address] [place] [id number] Nov, [facility] [address] [id number] [address] [place] [id number] Nov, [facility] [address] [id number] [address] [place] [id number] Nov, [place] [address] [address] Nov, Onychomycosis B35.1 ; Hammer toe M20.40 ; Tyler or callus L84 and DM neuro manif type II E11.49 [place] [address] [address] Nov, Chronic pain G89.29 ; Leukoc ytosis D72.829 and Diabetes E11.9 [place] [address] [id number] Nov, [place] [address] [address] Oct, Bronchitis J40 [place] [address] [address] Oct, [place] [address] [address] Oct, [place] [address] [address] Oct, Mastoiditis, unspecified lat erality H70.90 and Type 2 diabetes mellitus with complication E11.8 [place] [address] [address] Sep, [place] [address] [address] Sep, Dysuria R30.0 ; Cough R05 ; Benign prostatic hyperplasia with lower urinary tract symptoms, unspecified morphology N40.1 ; Hypokalemia E87.6 and Eustachian tube dysfunction, unspecified laterality H69.[address] [address] Sep, Moderate mixed bipolar I dis order F31.[address] [address] Sep, Hypokalemia E87.6 [facility] [address] [id number] [address] [place] [id number] Sep, [facility] [address] [facility] [id number] [address] [place] [id number] Sep, Upper respiratory tract infe ction, unspecified type J06.9 [facility] [address] [id number] [address] [place] [id number] Aug, [facility] [address] [id number] [address] [place] [id number] Aug, Dysuria R30.0 [facility] [address] [id number] [address] [place] [id number] Aug, [facility] [address] [id number] [address] [place] [id number] Jul, [facility] [address] [id number] [address] [place] [id number] Jul, [facility] [address] [id number] [address] [place] [id number] Jul, [facility] [address] [facility] [id number] [address] [place] [id number] Jul, [facility] [address] [id number] [address] [place] [id number] Jun, [facility] [address] [id number] [address] [place] [id number] Jun, [facility] [address] [id number] [address] [place] [id number] Jun, [facility] [address] [id number] [address] [place] [id number] May, [facility] [address] [facility] [id number] [address] [place] [id number] May, Bipolar I disorder, most rec ent episode (or current) mixed, moderate 296.62 [facility] [address] [facility] [id number] [address] [place] [id number] May, [facility] [address] [facility] [id number] [address] [place] [id number] May, Bipolar I disorder, most rec ent episode (or current) mixed, moderate 296.62 and Major depressive disorder, recurrent episode, severe, specified as with psychotic behavior 296.34 [facility] [address] [facility] [id number] [address] [place] [id number] May, Bipolar I disorder, most rec ent episode (or current) mixed, moderate 296.62 [facility] [address] [facility] [id number] [address] [place] [id number] May, [facility] [address] [place] [id number] [address] [place] [id number] Apr, [facility] [address] [facility] [id number] [address] [place] [id number] Apr, [facility] [address] [place] [id number] [address] [place] [id number] Apr, Unspecified disorder of kidn ey and ureter 593.9 and Diabetes mellitus type 2, uncontrolled 250.02 [facility] [address] [place] [id number] [address] [place] [id number] Apr, [facility] [address] [facility] [id number] [address] [place] [id number] Apr, [facility] [address] [facility] [id number] [address] [place] [address] Apr, [facility] [address] [facility] [id number] [address] [place] [id number] Apr, [facility] [address] [facility] [id number] [address] [place] [id number] Apr, Diabetes mellitus type II, u ncontrolled 250.02 [facility] [address] [place] [id number] [address] [place] [id number] Apr, [facility] [address] [facility] [id number] [address] [place] [id number] Mar, [facility] [address] [place] [id number] [address] [place] [id number] Mar, [facility] [address] [place] [id number] [address] [place] [address] Mar, [facility] [address] [place] [id number] [address] [place] [id number] Mar, Major depressive disorder, r ecurrent episode, severe, specified as with psychotic behavior 296.34 and Bipolar I disorder, most recent episode (or current) mixed, moderate 296.62 [facility] [address] [place] [id number] [address] [place] [address] Mar, Diabetes 250.00 ; Anuria 788 .5 ; Nausea and vomiting 787.01 and Diarrhea 787.91 [facility] [address] [place] [id number] [address] [place] [address] Mar, Diabetes 250.00 [facility] [address] [place] [id number] [address] [place] [id number] Mar, [facility] [address] [place] [id number] [address] [place] [id number] Mar, Diabetes 250.00 [facility] [address] [place] [id number] [address] [place] [id number] Mar, [facility] [address] [place] [id number] [address] [place] [id number] Mar, [facility] [address] [place] [id number] [address] [place] [id number] Mar, [facility] [address] [place] [id number] [address] [place] [id number] Mar, [facility] [address] [place] [id number] [address] [place] [id number] Mar, Bipolar I disorder, most rec ent episode (or current) mixed, moderate 296.62 and Major depressive disorder, recurrent episode, severe, specified as with psychotic behavior 296.[address] [address] Mar, Magnesium deficiency 275.2 ; Hypokalemia 276.8 ; Nausea & vomiting 787.01 and Diabetes mellitus type 2, uncontrolled [address] [address] Feb, [address] [address] Feb, Bipolar I disorder, most rec ent episode (or current) mixed, moderate 296.[address] [address] Feb, Nausea and vomiting 787.01 ; Left elbow pain 719.42 ; Anuria 788.5 and Diabetes 250.[address] [address] Feb, [address] [address] Feb, Hypopotassemia 276.8 and Hyp okalemia 276.[address] [address] Feb, Hypopotassemia 276.8 and Hyp okalemia 276.[address] [address] Feb, Seborrheic keratoses 702.[address] [address] Feb, Hypopotassemia 276.8 and Low magnesium levels 275.[address] [address] January, [address] [address] January, [facility] [address] [id number] [address] [place] [id number] January, [facility] [address] [id number] [address] [place] [id number] January, Scalp lesion 709.9 [facility] [address] [id number] [address] [place] [address] January, [facility] [address] [id number] [address] [place] [id number] Dec, Tear of medial cartilage or meniscus of knee, current 836.0 and 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 [facility] [address] [id number] [address] [place] [id number] Dec, [facility] [address] [id number] [address] [place] [id number] Dec, [facility] [address] [id number] [address] [place] [id number] Dec, Squamous cell carcinoma, 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 [facility] [address] [id number] [address] [place] [id number] Dec, [facility] [address] [id number] [address] [place] [id number] Dec, [facility] [address] [id number] [address] [place] [id number] Nov, [facility] [address] [id number] [address] [place] [id number] Nov, [facility] [address] [id number] [address] [place] [id number] Nov, [facility] [address] [id number] [address] [place] [id number] Nov, [facility] [address] [id number] [address] [place] [id number] Nov, [facility] [address] [id number] [address] [place] [address], [place] [address] Nov, [facility] [address] [id number] [address] [place] [address], [place] [address] Nov, 2014 [facility] [address] [id number] [address] [place] [address], [place] [address] Nov, 2014 [facility] [address] [id number] [address] [place] [address], [place] [address] Nov, 2014 [facility] [address] [id number] [address] [place] [address], [place] [address] Nov, [facility] [address] [id number] [address] [place] [address], [place] [address] Nov, [facility] [address] [id number] [address] [place] [address], [place] [address] Nov, [facility] [address] [id number] [address] [place] [id number] Oct, 2014 [facility] [address] [id number] [address] [place] [address], [place] [address] Oct, 2014 [facility] [address] [id number] [address] [place] [id number] Oct, 2014 [facility] [address] [id number] [address] [place] [id number] Oct, 2014 [facility] [address] [id number] [address] [place] [id number] Oct, 2014 [facility] [address] [id number] [address] [place] [address], [place] [address] Oct, 2014 [facility] [address] [id number] [address] [place] [id number] Oct, 2014 [facility] [address] [id number] [address] [place] [id number] Oct, 2014 [facility] [address] [id number] [address] [place] [address], [place] [address] Oct, [facility] [address] [id number] [address] [place] [address], [place] [address] Sep, [facility] [address] [id number] [address] [place] [address], [place] [address] Sep, [facility] [address] [id number] [address] [place] [address], [place] [address] Sep, [facility] [address] [id number] [address] [place] [address], [place] [address] Sep, [facility] [address] [id number] [address] [place] [address], [place] [address] Sep, [facility] [address] [id number] [address] [place] [address], [place] [address] Sep, [facility] [address] [id number] [address] [place] [address], [place] [address] Sep, [facility] [address] [id number] [address] [place] [address], [place] [address] Sep, [facility] [address] [id number] [address] [place] [address], [place] [address] Sep, [facility] [address] [id number] [address] [place] [address], [place] [address] Sep, [facility] [address] [id number] [address] [place] [address], [place] [address] Sep, [facility] [address] [id number] [address] [place] [address], [place] [address] Sep, [facility] [address] [id number] [address] [place] [address], [place] [address] Sep, [facility] [address] [id number] [address] [place] [address], [place] [address] Sep, [facility] [address] [id number] [address] [place] [address] [address] Sep, [facility] [address] [id number] [address] [place] [address], [place] [address] Sep, [facility] [address] [id number] [address] [place] [address], [place] [address] Aug, [facility] [address] [id number] [address] [place] [address], [place] [address] Aug, [facility] [address] [id number] [address] [place] [address], [place] [address] Aug, [facility] [address] [id number] [address] [place] [address], [place] [address] Aug, [facility] [address] [id number] [address] [place] [address], [place] [address] Aug, [facility] [address] [id number] [address] [place] [address], [place] [address] Aug, [facility] [address] [id number] [address] [place] [address], [place] [address] Aug, [facility] [address] [id number] [address] [place] [address], [place] [address] Aug, [facility] [address] [id number] [address] [place] [address], [place] [address] Aug, [facility] [address] [id number] [address] [place] [address], [place] [address] Aug, [facility] [address] [id number] [address] [place] [address], [place] [address] Aug, [facility] [place] [id number] Aug, [facility] [address] [id number] [address] [place] [address], [place] [address] Aug, [facility] [address] [id number] [address] [place] [address], [place] [address] Aug, [facility] [address] [id number] [address] [place] [address], [place] [address] Aug, [facility] [address] [id number] [address] [place] [address], [place] [address] Aug, [facility] [address] [id number] [address] [place] [address], [place] [address] Aug, [facility] [address] [id number] [address] [place] [address], [place] [address] Aug, [facility] [address] [id number] [address] [place] [address], [place] [address] Aug, [facility] [address] [id number] [address] [place] [address], [place] [address] Aug, [facility] [address] [id number] [address] [place] [address], [place] [address] Aug, [facility] [address] [id number] [address] [place] [address], [place] [address] Aug, [facility] [address] [id number] [address] [place] [address], [place] [address] Aug, [facility] [address] [id number] [address] [place] [address], [place] [address] Aug, [facility] [address] [id number] [address] [place] [address], [place] [address] Aug, [facility] [address] [id number] [address] [place] [address], [place] [address] Aug, [facility] [address] [id number] [address] [place] [address], [place] [address] Aug, [facility] [address] [id number] [address] [place] [address], [place] [address] Aug, [facility] [address] [id number] [address] [place] [address], [place] [address] Aug, [facility] [address] [id number] [address] [place] [address], [place] [address] Aug, [facility] [address] [id number] [address] [place] [address], [place] [address] Jul, [facility] [address] [id number] [address] [place] [address], [place] [address] Jul, [facility] [address] [id number] [address] [place] [address], [place] [address] Jul, [facility] [address] [id number] [address] [place] [address], [place] [address] Jul, [facility] [address] [id number] [address] [place] [address], [place] [address] Jul, [facility] [address] [id number] [address] [place] [address], [place] [address] Jul, [facility] [address] [id number] [address] [place] [address], [place] [address] Jul, [facility] [address] [id number] [address] [place] [address], [place] [address] Jul, [facility] [address] [id number] [address] [place] [address], [place] [address] Jul, [facility] [address] [id number] [address] [place] [address], [place] [address] Jul, [facility] [address] [id number] [address] [place] [address], [place] [address] Jun, [facility] [address] [id number] [address] [place] [address], [place] [address] Jun, [facility] [address] [id number] [address] [place] [address], [place] [address] Jun, [facility] [address] [id number] [address] [place] [address], [place] [address] 16 Jun, 2014 [facility] [address] [id number] [address] [place] [address], [place] [address] 15 Jun, 2014 [facility] [address] [id number] [address] [place] [address], [place] [address] 15 Jun, 2014 [facility] [address] [id number] [address] [place] [address], [place] [address] 05 Jun, 2014 [facility] [address] [id number] [address] [place] [address], [place] [address] Jun, [facility] [address] [id number] [address] [place] [address], [place] [address] Jun, [facility] [address] [id number] [address] [place] [address], [place] [address] Jun, [facility] [address] [id number] [address] [place] [address], [place] [address] 29 May, 2014 [facility] [address] [id number] [address] [place] [address], [place] [address] 29 May, 2013 [facility] [address] [id number] [address] [place] [address], [place] [address] 26 May, 2013 [facility] [address] [id number] [address] [place] [address], [place] [address] 26 May, 2013 [facility] [address] [id number] [address] [place] [address], [place] [address] 17 May, 2013 [facility] [address] [id number] [address] [place] [address], [place] [address] 17 May, 2013 [facility] [address] [id number] [address] [place] [address], [place] [address] 15 May, 2013 [facility] [address] [id number] [address] [place] [address] 15 May, 2013 [facility] [address] [id number] [address] [place] [address], [place] [address] 15 May, 2013 [facility] [address] [id number] [address] [place] [address], [place] [address] 15 May, 2013 [facility] [address] [id number] [address] [place] [address], [place] [address] 10 May, 2013 [facility] [address] [id number] [address] [place] [address], [place] [address] May, [facility] [address] [id number] [address] [place] [address], [place] [address] May, [facility] [address] [id number] [address] [place] [address], [place] [address] May, [facility] [address] [id number] [address] [place] [address], [place] [address] May, [facility] [address] [id number] [address] [place] [address], [place] [address] May, [facility] [address] [id number] [address] [place] [address], [place] [address] Apr, [facility] [address] [id number] [address] [place] [address], [place] [address] Apr, [facility] [address] [id number] [address] [place] [address], [place] [address] Apr, [facility] [address] [id number] [address] [place] [address], [place] [address] Apr, [facility] [address] [id number] [address] [place] [address], [place] [address] Apr, [facility] [address] [id number] [address] [place] [address], [place] [address] Apr, [facility] [address] [id number] [address] [place] [address], [place] [address] Apr, [facility] [address] [id number] [address] [place] [address], [place] [address] Apr, [facility] [address] [id number] [address] [place] [address], [place] [address] Apr, [facility] [address] [id number] [address] [place] [address], [place] [address] Apr, [facility] [address] [id number] [address] [place] [address], [place] [address] Apr, [facility] [address] [id number] [facility] [place] [address] Apr, [facility] [address] [id number] [facility] [place] [address] Apr, [facility] [address] [id number] [facility] [place] [address] Apr, [facility] [address] [id number] [facility] [place] [address] Apr, [facility] [address] [id number] [facility] [place] [address] Mar, [facility] [address] [id number] [facility] [place] [address] Mar, [facility] [address] [id number] [address] [place] [address], [place] [address] Mar, [facility] [address] [id number] [address] [place] [address], [place] [address] Mar, [facility] [address] [id number] [address] [place] [address], [place] [address] Mar, [facility] [address] [id number] [address] [place] [address], [place] [address] Mar, [facility] [address] [id number] [address] [place] [address], [place] [address] Mar, [facility] [address] [id number] [address] [place] [address], [place] [address] Mar, [facility] [address] [id number] [address] [place] [address], [place] [address] Mar, [facility] [address] [id number] [address] [place] [address], [place] [address] Mar, [facility] [address] [id number] [address] [place] [address], [place] [address] Mar, [facility] [address] [id number] [address] [place] [address], [place] [address] Mar, 2013 [facility] [address] [id number] [facility] [place] [address] Mar, 2013 [facility] [address] [id number] [facility] [place] [address] Mar, 2013 [facility] [address] [id number] [facility] [place] [address] Mar, 2013 [facility] [address] [id number] [address] [place] [address], [place] [address] Mar, 2013 [facility] [address] [id number] [address] [place] [address], [place] [address] Mar, [facility] [address] [id number] [address] [place] [address], [place] [address] Mar, [facility] [address] [id number] [address] [place] [address], [place] [address] Feb, [facility] [address] [id number] [address] [place] [address], [place] [address] Feb, [facility] [address] [id number] [address] [place] [address], [place] [address] Feb, [facility] [address] [id number] [address] [place] [address], [place] [address] Feb, [facility] [address] [id number] [address] [place] [address], [place] [address] Feb, [facility] [address] [id number] [address] [place] [address], [place] [address] Feb, [facility] [address] [id number] [address] [place] [address], [place] [address] Feb, [facility] [address] [id number] [address] [place] [address], [place] [address] Feb, [facility] [address] [id number] [address] [place] [address], [place] [address] Feb, [facility] [address] [id number] [facility] [place] [address] Feb, [facility] [address] [id number] [address] [place] [address], [place] [address] Feb, [facility] [address] [id number] [facility] [place] [address] Feb, [facility] [address] [id number] [address] [place] [address], [place] [address] Feb, [facility] [address] [id number] [address] [place] [address], [place] [address] Feb, [facility] [address] [id number] [address] [place] [address], [place] [address] January, [facility] [address] [id number] [address] [place] [address], [place] [address] January, [facility] [address] [id number] [address] [place] [address], [place] [address] January, [facility] [address] [id number] [address] [place] [address], [place] [address] January, [facility] [address] [id number] [address] [place] [address], [place] [address] January, [facility] [address] [id number] [address] [place] [address], [place] [address] January, [facility] [address] [id number] [address] [place] [address], [place] [address] January, [facility] [address] [id number] [address] [place] [address], [place] [address] January, [facility] [address] [id number] [address] [place] [address], [place] [address] January, [facility] [address] [id number] [address] [place] [address], [place] [address] January, [facility] [address] [id number] [address] [place] [address], [place] [address] January, [facility] [address] [id number] [facility] [place] [address] January, [facility] [address] [id number] [address] [place] [address], [place] [address] January, [facility] [address] [id number] [address] [place] [address], [place] [address] January, [facility] [address] [id number] [address] [place] [address], [place] [address] Dec, [facility] [address] [id number] [address] [place] [address], [place] [address] Dec, [facility] [address] [id number] [address] [place] [address], [place] [address] Dec, [facility] [address] [id number] [address] [place] [address], [place] [address] Dec, [facility] [address] [id number] [address] [place] [address], [place] [address] Dec, [facility] [address] [id number] [address] [place] [address], [place] [address] Dec, [facility] [address] [id number] [address] [place] [address], [place] [address] Dec, [facility] [address] [id number] [address] [place] [address], [place] [address] Dec, [facility] [address] [id number] [address] [place] [address], [place] [address] Dec, [facility] [address] [id number] [address] [place] [address], [place] [address] Dec, [facility] [address] [id number] [address] [place] [address], [place] [address] Nov, [facility] [address] [id number] [address] [place] [address], [place] [address] Nov, [facility] [address] [id number] [address] [place] [address], [place] [address] Nov, [facility] [address] [id number] [address] [place] [address], [place] [address] Nov, [facility] [address] [id number] [address] [place] [address], [place] [address] Nov, [facility] [address] [id number] [address] [place] [address], [place] [address] Nov, [facility] [address] [id number] [address] [place] [address], [place] [address] Nov, [facility] [address] [id number] [address] [place] [address], [place] [address] Nov, [facility] [address] [id number] [address] [place] [address], [place] [address] Nov, [facility] [address] [id number] [address] [place] [address], [place] [address] Nov, [facility] [address] [id number] [address] [place] [address], [place] [address] Oct, [facility] [address] [id number] [address] [place] [address], [place] [address] Oct, [facility] [address] [id number] [address] [place] [address], [place] [address] Oct, [facility] [address] [id number] [address] [place] [address], [place] [address] Oct, [facility] [address] [id number] [address] [place] [address], [place] [address] Oct, [facility] [address] [id number] [address] [place] [address], [place] [address] Oct, [facility] [address] [id number] [address] [place] [address], [place] [address] 14 Oct, 2013 [facility] [address] [id number] [address] [place] [address], [place] [address] Oct, [facility] [address] [id number] [address] [place] [address], [place] [address] Oct, [facility] [address] [id number] [address] [place] [address], [place] [address] Oct, [facility] [address] [id number] [address] [place] [address], [place] [address] Oct, [facility] [address] [id number] [address] [place] [address], [place] [address] Oct, [facility] [address] [id number] [address] [place] [address], [place] [address] Oct, [facility] [address] [id number] [address] [place] [address], [place] [address] Oct, [facility] [address] [id number] [address] [place] [address], [place] [address] Sep, [facility] [address] [id number] [address] [place] [address], [place] [address] Sep, [facility] [address] [id number] [address] [place] [address], [place] [address] Sep, [facility] [address] [id number] [address] [place] [address], [place] [address] Sep, [facility] [address] [id number] [address] [place] [address], [place] [address] Sep, [facility] [address] [id number] [address] [place] [address], [place] [address] Sep, [facility] [address] [id number] [address] [place] [address], [place] [address] Sep, [facility] [address] [id number] [address] [place] [address], [place] [address] Sep, [facility] [address] [id number] [address] [place] [address], [place] [address] Sep, [facility] [address] [id number] [address] [place] [address], [place] [address] 08 Sep, 2013 [facility] [address] [id number] [address] [place] [address], [place] [address] 10 Aug, 2013 [facility] [address] [id number] [address] [place] [address], [place] [address] Aug, [facility] [address] [id number] [address] [place] [address], [place] [address] Jul, [facility] [address] [id number] [address] [place] [address], [place] [address] Jul, [facility] [address] [id number] [address] [place] [address], [place] [address] Jul, [facility] [address] [id number] [address] [place] [address], [place] [address] Jul, [facility] [address] [id number] [address] [place] [address], [place] [address] Jul, [facility] [address] [id number] [address] [place] [address], [place] [address] Jul, [facility] [address] [id number] [address] [place] [address], [place] [address] Jul, [facility] [address] [id number] [address] [place] [address], [place] [address] Jul, [facility] [address] [id number] [address] [place] [address], [place] [address] Jul, [facility] [address] [id number] [address] [place] [address], [place] [address] Jul, [facility] [address] [id number] [address] [place] [address], [place] [address] Jul, [facility] [address] [id number] [address] [place] [address], [place] [address] Jul, [facility] [address] [id number] [address] [place] [address], [place] [address] Jul, [facility] [address] [id number] [address] [place] [address], [place] [address] 05 Jul, 2012 [facility] [address] [id number] [address] [place] [address], [place] [address] Jul, 2012 [facility] [address] [id number] [address] [place] [address], [place] [address] Jul, 2012 [facility] [address] [id number] [address] [place] [address], [place] [address] Jul, 2012 [facility] [address] [id number] [address] [place] [address], [place] [address] Jul, 2012 [facility] [address] [id number] [address] [place] [address], [place] [address] Jul, [facility] [address] [id number] [address] [place] [address], [place] [address] Jun, 2012 [facility] [address] [id number] [address] [place] [address], [place] [address] 16 Jun, 2012 [facility] [address] [id number] [address] [place] [address], [place] [address] 16 Jun, 2012 [facility] [address] [id number] [address] [place] [address], [place] [address] 16 Jun, 2012 [facility] [address] [id number] [address] [place] [address], [place] [address] 16 Jun, 2012 [facility] [address] [id number] [address] [place] [address], [place] [address] 16 Jun, 2012 [facility] [address] [id number] [address] [place] [address], [place] [address] 10 Jun, 2013 [facility] [address] [id number] [address] [place] [address], [place] [address] 10 Jun, 2012 [facility] [address] [id number] [address] [place] [address] 09 Jun, 2012 [facility] [address] [id number] [address] [place] [address] Jun, [facility] [address] [id number] [address] [place] [address], [place] [address] Jun, [facility] [address] [id number] [address] [place] [address], [place] [address] May, [facility] [address] [id number] [address] [place] [address], [place] [address] May, [facility] [address] [id number] [address] [place] [address], [place] [address] May, 2012 [facility] [address] [id number] [address] [place] [address], [place] [address] 17 May, 2013 [facility] [address] [id number] [address] [place] [address], [place] [address] May, [facility] [address] [id number] [address] [place] [address], [place] [address] May, [facility] [address] [id number] [address] [place] [address] [address] May, [facility] [address] [id number] [address] [place] [address], [place] [address] May, [facility] [address] [id number] [address] [place] [address], [place] [address] Apr, [facility] [address] [id number] [address] [place] [address], [place] [address] Apr, [facility] [address] [id number] [address] [place] [address], [place] [address] Apr, [facility] [address] [id number] [address] [place] [address], [place] [address] Apr, [facility] [address] [id number] [address] [place] [address], [place] [address] Apr, [facility] [address] [id number] [address] [place] [address], [place] [address] Mar, [facility] [address] [id number] [address] [place] [address], [place] [address] Mar, [facility] [address] [id number] [address] [place] [address], [place] [address] Mar, [facility] [address] [id number] [address] [place] [address], [place] [address] Mar, [facility] [address] [id number] [address] [place] [address], [place] [address] Mar, [facility] [address] [id number] [address] [place] [address], [place] [address] Mar, [facility] [address] [id number] [address] [place] [address], [place] [address] Mar, [facility] [address] [id number] [address] [place] [address], [place] [address] Mar, [facility] [address] [id number] [address] [place] [address], [place] [address] Feb, [facility] [address] [id number] [address] [place] [address], [place] [address] Feb, [facility] [address] [id number] [address] [place] [address], [place] [address] January, [facility] [address] [id number] [address] [place] [address], [place] [address] January, [facility] [address] [id number] [address] [place] [address], [place] [address] Dec, [facility] [address] [id number] [address] [place] [address], [place] [address] Dec, [facility] [address] [id number] [address] [place] [address], [place] [address] Nov, [facility] [address] [id number] [address] [place] [address], [place] [address] Nov, [facility] [address] [id number] [address] [place] [address], [place] [address] Nov, [facility] [address] [id number] [address] [place] [address], [place] [address] Nov, [facility] [address] [id number] [address] [place] [address], [place] [address] Oct, [facility] [address] [id number] [address] [place] [address], [place] [address] Oct, [facility] [address] [id number] [address] [place] [address], [place] [address] Oct, [facility] [address] [id number] [address] [place] [address], [place] [address] Oct, [facility] [address] [id number] [address] [place] [address], [place] [address] 16 Oct, 2012 [facility] [address] [id number] [address] [place] [address], [place] [address] 14 Oct, 2012 [facility] [address] [id number] [address] [place] [address], [place] [address] 08 Oct, 2012 [facility] [address] [id number] [address] [place] [address], [place] [address] 07 Oct, 2012 [facility] [address] [id number] [address] [place] [address], [place] [address] 03 Oct, 2012 [facility] [address] [id number] [address] [place] [address], [place] [address] Sep, [facility] [address] [id number] [address] [place] [address], [place] [address] Sep, [facility] [address] [id number] [address] [place] [address], [place] [address] Sep, [facility] [address] [id number] [address] [place] [address], [place] [address] Sep, [facility] [address] [id number] [address] [place] [address], [place] [address] Sep, [facility] [address] [id number] [address] [place] [address], [place] [address] 10 Sep, 2012 [facility] [address] [id number] [address] [place] [address], [place] [address] Sep, [facility] [address] [id number] [address] [place] [address], [place] [address] Sep, [facility] [address] [id number] [address] [place] [address], [place] [address] Aug, [facility] [address] [id number] [address] [place] [address], [place] [address] Aug, [facility] [address] [id number] [address] [place] [address], [place] [address] Aug, [facility] [address] [id number] [address] [place] [address], [place] [address] Aug, [facility] [address] [id number] [address] [place] [address], [place] [address] Aug, [facility] [address] [id number] [address] [place] [address], [place] [address] Aug, [facility] [address] [id number] [address] [place] [address], [place] [address] Aug, [facility] [address] [id number] [address] [place] [address], [place] [address] Aug, [facility] [address] [id number] [address] [place] [address], [place] [address] Jul, [facility] [address] [id number] [address] [place] [address], [place] [address] Jul, [facility] [address] [id number] [address] [place] [address], [place] [address] Jul, [facility] [address] [id number] [address] [place] [address], [place] [address] Jul, [facility] [address] [id number] [address] [place] [address], [place] [address] Jul, [facility] [address] [id number] [address] [place] [address], [place] [address] Jul, [facility] [address] [id number] [address] [place] [address], [place] [address] Jun, [facility] [address] [id number] [address] [place] [address], [place] [address] Jun, [facility] [address] [id number] [address] [place] [address], [place] [address] Jun, [facility] [address] [id number] [address] [place] [address], [place] [address] Jun, [facility] [address] [id number] [address] [place] [address], [place] [address] Jun, [facility] [address] [id number] [address] [place] [address], [place] [address] Jun, [facility] [address] [id number] [address] [place] [address], [place] [address] Jun, [facility] [address] [id number] [address] [place] [address], [place] [address] Jun, [facility] [address] [id number] [address] [place] [address], [place] [address] Jun, [facility] [address] [id number] [address] [place] [address], [place] [address] 26 May, 2012 [facility] [address] [id number] [address] [place] [address] 24 May, 2012 [facility] [address] [id number] [address] [place] [address], [place] [address] 18 May, 2012 [facility] [address] [id number] [address] [place] [address], [place] [address] 30 Apr, 2012 [facility] [address] [id number] [address] [place] [address], [place] [address] Apr, [facility] [address] [id number] [address] [place] [address] Apr, [facility] [address] [id number] [address] [place] [address], [place] [address] Apr, [facility] [address] [id number] [address] [place] [address], [place] [address] Apr, [facility] [address] [id number] [address] [place] [address], [place] [address] Apr, [facility] [address] [id number] [address] [place] [address], [place] [address] Mar, [facility] [address] [id number] [address] [place] [address], [place] [address] Mar, [facility] [address] [id number] [address] [place] [address], [place] [address] Mar, [facility] [address] [id number] [address] [place] [address], [place] [address] Mar, [facility] [address] [id number] [address] [place] [address], [place] [address] Feb, [facility] [address] [id number] [address] [place] [address], [place] [address] Feb, [facility] [address] [id number] [address] [place] [address], [place] [address] Feb, [facility] [address] [id number] [address] [place] [address], [place] [address] Feb, [facility] [address] [id number] [address] [place] [address], [place] [address] Feb, [facility] [address] [id number] [address] [place] [address], [place] [address] January, [facility] [address] [id number] [address] [place] [address], [place] [address] January, [facility] [address] [id number] [address] [place] [address], [place] [address] January, [facility] [address] [id number] [address] [place] [address], [place] [address] January, [facility] [address] [id number] [address] [place] [address], [place] [address] January, [facility] [address] [id number] [address] [place] [address], [place] [address] January, [facility] [address] [id number] [address] [place] [address], [place] [address] Dec, [facility] [address] [id number] [address] [place] [address], [place] [address] Dec, [facility] [address] [id number] [address] [place] [address], [place] [address] Dec, [facility] [address] [id number] [address] [place] [address], [place] [address] Dec, [facility] [address] [id number] [address] [place] [address], [place] [address] Dec, [facility] [address] [id number] [address] [place] [address], [place] [address] Nov, [facility] [address] [id number] [address] [place] [address], [place] [address] Nov, [facility] [address] [id number] [address] [place] [address], [place] [address] Nov, [facility] [address] [id number] [address] [place] [address], [place] [address] Nov, [facility] [address] [id number] [address] [place] [address], [place] [address] Oct, [facility] [address] [id number] [address] [place] [address], [place] [address] Oct, [facility] [address] [id number] [address] [place] [address], [place] [address] Oct, [facility] [address] [id number] [address] [place] [address], [place] [address] Oct, [facility] [address] [id number] [address] [place] [address], [place] [address] Oct, [facility] [address] [id number] [address] [place] [address], [place] [address] Sep, [facility] [address] [id number] [address] [place] [address], [place] [address] Sep, [facility] [address] [id number] [address] [place] [address], [place] [address] Sep, [facility] [address] [id number] [address] [place] [address], [place] [address] Sep, [facility] [address] [id number] [address] [place] [address], [place] [address] Sep, [facility] [address] [id number] [address] [place] [address], [place] [address] Sep, [facility] [address] [id number] [address] [place] [address], [place] [address] Aug, [facility] [address] [id number] [address] [place] [address], [place] [address] Aug, [facility] [address] [id number] [address] [place] [address], [place] [address] Aug, [facility] [address] [id number] [address] [place] [address], [place] [address] Jul, [facility] [address] [id number] [address] [place] [address] Jul, [facility] [address] [id number] [address] [place] [address], [place] [address] Jul, [facility] [address] [id number] [address] [place] [address], [place] [address] Jul, [facility] [address] [id number] [address] [place] [address], [place] [address] Jun, [facility] [address] [id number] [address] [place] [address], [place] [address] 31 Jun, 2011 [facility] [address] [id number] [address] [place] [address], [place] [address] 18 Jun, 2011 [facility] [address] [id number] [address] [place] [address], [place] [address] 10 Jun, 2011 [facility] [address] [id number] [address] [place] [address], [place] [address] 10 Jun, 2011 [facility] [address] [id number] [address] [place] [address], [place] [address] 10 Jun, 2011 [facility] [address] [id number] [address] [place] [address], [place] [address] 11 Mar, 2011 [facility] [address] [id number] [address] [place] [address], [place] [address] 18 Dec, 2010 [facility] [address] [id number] [address] [place] [address], [place] [address] 11 Dec, 2010 [facility] [address] [id number] [address] [place] [address], [place] [address] 18 Nov, 2010 [facility] [address] [id number] [address] [place] [address], [place] [address] 16 Nov, 2010 [facility] [address] [id number] [address] [place] [address], [place] [address] 10 Sep, 2010 [facility] [address] [id number] [address] [place] [address], [place] [address] 31 Aug, 2010 [facility] [address] [id number] [address] [place] [address], [place] [address] Aug, [facility] [address] [id number] [address] [place] [address], [place] [address] Aug, [facility] [address] [id number] [address] [place] [address], [place] [address] Aug, [facility] [address] [id number] [address] [place] [address], [place] [address] Aug, [facility] [address] [id number] [address] [place] [address], [place] [address] 14 Aug, 2010 [facility] [address] [id number] [address] [place] [address], [place] [address] 08 Aug, 2010 [facility] [address] [id number] [address] [place] [address], [place] [address] 08 Aug, 2010 [facility] [address] [id number] [address] [place] [address], [place] [address] 07 Aug, 2010 [facility] [address] [id number] [address] [place] [address], [place] [address] 06 Aug, 2010 [facility] [address] [id number] [address] [place] [address], [place] [address] Aug, [facility] [address] [id number] [address] [place] [address], [place] [address] Aug, [facility] [address] [id number] [address] [place] [address] Jul, [facility] [address] [id number] [address] [place] [address], [place] [address] Jul, [facility] [address] [id number] [address] [place] [address] Jul, [facility] [address] [id number] [address] [place] [address] Jul, [facility] [address] [id number] [address] [place] [address] Jul, [facility] [address] [id number] [address] [place] [address] Jul, [facility] [address] [id number] [address] [place] [address] Jun, [facility] [address] [id number] [address] [place] [address] Jun, [facility] [address] [id number] [address] [place] [address] 19 Jun, 2010 [facility] [address] [id number] [address] [place] [address], [place] [address] 13 Jun, 2010 [facility] [address] [id number] [address] [place] [address] 16 Apr, 2010 [facility] [address] [id number] [address] [place] [address], [place] [address] 20 Mar, 2010 [facility] [address] [id number] [address] [place] [address], [place] [address] 17 Feb, 2010 [facility] [address] [id number] [address] [place] [address], [place] [address] January, [facility] [address] [id number] [address] [place] [address], [place] [address] 15 Dec, 2009 [facility] [address] [id number] [address] [place] [address], [place] [address] Nov, [facility] [address] [id number] [address] [place] [address], [place] [address] Aug, [facility] [address] [id number] [address] [place] [address], [place] [address] Aug, [facility] [address] [id number] [address] [place] [address], [place] [address] Aug, [facility] [address] [id number] [address] [place] [id number] Jul, [facility] [address] [id number] [address] [place] [id number] Jul, [facility] [address] [id number] [address] [place] [id number] 07 Jul, 2009 [facility] [address] [id number] [address] [place] [address], [place] [address] 30 Jun, 2009 [facility] [address] [id number] [address] [place] [address], [place] [address] 29 Jun, 2009 [facility] [address] [id number] [address] [place] [id number] Jun, [facility] [address] [id number] [address] [place] [id number] Jun, [facility] [address] [id number] [address] [place] [id number] Jun, [facility] [address] [id number] [address] [place] [id number] Jun, [facility] [address] [id number] [address] [place] [id number] Apr, [facility] [address] [id number] [address] [place] [id number] Apr, [facility] [address] [id number] [address] [place] [id number] Feb, [facility] [address] [facility] [id number] [address] [place] [id number] January, [facility] [address] [id number] [address] [place] [id number] Dec, IMMUNIZATIONS No Known Immunizations SOCIAL HISTORY Never Assessed REASON FOR VISIT [facility] PLAN OF CARE VITAL SIGNS MEDICATIONS Unknown [...] Medical History skin cancer-basal cell R orthodox (removed ) Medical History Arthritis Medical History [...] History inability to urinate 09/16/15 Hospitalization History [facility] inpatient mental health ea rly 2000's Hospitalization History hyperkalemia 10/2017 Hospitalization History fluid in lung
--- OUTSIDE RECORDS SUMMARY | 2020-03-01 17:37 | XMS REPORT ---
Author Author Michele Verduzco Doctor Organization [facility] Address Unknown Phone Unavailable Care Team Providers Care Supervisor [employer] Name Role Phone Migration, Doctor Unavailable Unavailable PROBLEMS Type Condition ICD9-CM Code PFP83-HR Code Onset Dates Condition S tatus SNOMED Code Problem Cough R05 Active 40373139 Problem Benign prostatic hyperplasia with lower urinary tract symptoms, unspecified morphology N40.1 Active 28412 6007 Problem Eustachian tube dysfunction, unspecified laterality H69.80 Active 63341552 Problem Chronic pain G89.29 Active 1941255 1 Problem DM neuro manif type II E11.49 Active 04571155 Problem Diabetes E11.9 Active 16975307 Problem Leukocytosis D72.829 Active 0338426 06 Problem Falling R29.6 Active 927973817 Problem Pressure ulcer of other site, stage 3 L89.893 Active 794099858 Problem 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 Active 282528503 Problem Eye exam abnormal R93.8 Active 16 3470887 Problem Dysuria R30.0 Active 50466270 Problem Hypokalemia E87.6 Active 34464692 Problem Morbid obesity E66.01 Active 47562 6002 Problem Anxiety F41.9 Active 63440943 Problem Diabetic polyneuropathy associated with type 2 d iabetes mellitus E11.42 Active 05005766 Problem Essential hypertension I10 Active 27698754 Problem Bilateral primary osteoarthritis of knee M17.0 Active 899959362 Problem Polyneuropathy associated with underlying disease G63 Active 987935705 Problem Anemia of chronic illness D63.8 Acti ve 461173154 Problem Lymphocytosis D72.820 Active 065549 09 Problem Retinal edema H35.81 Active 844690 6 Problem Chronic lymphocytic leukemia C91.10 A ctive 71481599 Problem Bipolar disorder, in partial remission, most rec ent episode depressed F31.75 Active 72913069 Problem Pure hypercholesterolemia E78.00 Acti ve 865689630 Problem Primary osteoarthritis of right knee M17.11 Active 158522804896885 Problem Bipolar disorder F31.9 Active 137 97075 Problem Bipolar I disorder, most recent episode (or curr ent) mixed, moderate F31.62 Active 00696433 Problem Chronic diastolic (congestive) heart failure I50.3 2 Active 063963660 Problem Reactive airway disease J45.909 Active 448201352312 Problem Insomnia, unspecified type G47.00 Act sharon 084675728 Problem Other chronic pain G89.29 Active 8 3264743 Problem Other iron deficiency anemia D50.8 A ctive 18045873 Problem Mild cognitive impairment G31.84 Acti ve 254264112 Problem Skin cancer C44.90 Active 97700343 7 ALLERGIES No Information ENCOUNTERS Encounter Location Date Diagnosis [facility] [address] [facility] [id number] [address] [place] [address] Mar, [facility] [address] [facility] [id number] [address] [place] [address] January, [facility] [address] [facility] [id number] [address] [place] [address] January, [facility] [address] [facility] [id number] [address] [place] [address] January, [facility] [address] [facility] [id number] [address] [place] [address] Dec, Chronic pain G89.29 and Bipo lar disorder F31.9 [facility] [address] [facility] [id number] [address] [place] [address] Dec, Edema of both lower extremit ies R60.0 [facility] [address] [facility] [id number] [address] [place] [address] Dec, Bipolar disorder F31.9 [facility] [address] [facility] [id number] [address] [place] [address] Dec, Bipolar disorder, in partial remission, most recent episode depressed F31.75 and Mild cognitive impairment G31.84 [facility] [address] [facility] [id number] [address] [place] [address] Nov, [facility] [address] [facility] [id number] [address] [place] [address] Nov, Chronic pain G89.29 [place] [address] [place] [id number] [address] [place] [address] Nov, Bipolar disorder, in partial remission, most recent episode depressed F31.75 and Mild cognitive impairment G31.84 [place] [address] [place] [id number] [address] [place] [address] Nov, Bipolar disorder F31.9 [place] [address] [place] [id number] [address] [place] [address] 04 Nov, 2018 Encounter for Medicare annua [...] unspecified morphology N40.1 and Essential hypertension I10 [place] [address] [place] [id number] [address] [place] [address] Oct, Chronic pain G89.29 [place] [address] [place] [id number] [address] [place] [address] 18 Oct, 2018 Diabetes E11.9 [place] [address] [place] [id number] [address] [place] [address] Oct, Bipolar I disorder, most rec ent episode (or current) mixed, moderate F31.62 and Mild cognitive impairment G31.84 [place] [address] [place] [id number] [address] [place] [address] Oct, Bipolar I disorder, most rec ent episode (or current) mixed, moderate F31.62 and Mild cognitive impairment G31.84 [place] [address] [place] [id number] [address] [place] [address] Sep, Bipolar I disorder, most rec ent episode (or current) mixed, moderate F31.62 and Mild cognitive impairment G31.84 [facility] [address] [facility] [id number] [address] [place] [address] Sep, [facility] [address] [facility] [id number] [address] [place] [address] Sep, Diabetes E11.9 ; Hypoxia R09 .02 ; Hyperglycemia R73.9 ; Therapeutic drug monitoring Z51.81 ; BMI 50.0-59.9, adult Z68.43 and Skin cancer C44.90 [facility] [address] [id number] [address] [place] [address] Sep, Chronic pain G89.29 [place] [address] [facility] [id number] [address] [place] [address] Sep, Bipolar I disorder, most rec ent episode (or current) mixed, moderate F31.62 [place] [address] [facility] [id number] [address] [place] [address] Sep, [facility] [address] [id number] [address] [place] [address] Sep, [facility] [address] [facility] [id number] [address] [place] [address] Aug, Chronic pain G89.29 [facility] [address] [facility] [id number] [address] [place] [address] Aug, Bipolar I disorder, most rec ent episode (or current) mixed, moderate F31.62 [facility] [address] [id number] [address] [place] [address] Aug, Bipolar I disorder, most rec ent episode (or current) mixed, moderate F31.62 and Mild cognitive impairment G31.84 [facility] [address] [id number] [address] [place] [address] Jul, [facility] [address] [facility] [id number] [address] [place] [address] Jul, Chronic pain G89.29 [facility] [address] [id number] [address] [place] [address] Jul, Bipolar I disorder, most rec ent episode (or current) mixed, moderate F31.62 and Mild cognitive impairment G31.84 [facility] [address] [id number] [address] [place] [address] Jul, Bipolar I disorder, most rec ent episode (or current) mixed, moderate F31.62 and MCI (mild cognitive impairment) G31.84 [facility] [address] [id number] [address] [place] [address] Jul, [facility] [address] [id number] [address] [place] [address] Jul, [facility] [address] [id number] [address] [place] [address] Jul, Bipolar I disorder, most rec ent episode (or current) mixed, moderate F31.62 [facility] [address] [id number] [address] [place] [address] Jul, Chronic pain G89.29 [facility] [address] [id number] [address] [place] [address] Jun, Bipolar I disorder, most rec ent episode (or current) mixed, moderate F31.62 [facility] [address] [id number] [address] [place] [address] Jun, Pre-procedure lab exam Z01.8 12 [facility] [address] [id number] [address] [place] [address] Jun, [facility] [address] [id number] [place] [id number] Jun, [facility] [address] [id number] [address] [place] [address] Jun, [facility] [address] [id number] [address] [place] [address] Jun, Forgetfulness R68.89 ; Pre-s yncope R55 ; Localized edema R60.0 ; Other iron deficiency anemia D50.8 and BMI 50.0-59.9, adult Z68.43 [place] [address] [address] Jun, Chronic pain G89.29 [place] [address] [address] Jun, Chronic pain G89.29 [place] [address] [address] Jun, Bipolar I disorder, most rec ent episode (or current) mixed, moderate F31.62 [place] [address] [address] May, Chronic pain G89.29 [place] [address] [address] Apr, [place] [address] [address] Apr, Chronic pain G89.29 [place] [address] [address] Apr, Primary osteoarthritis of ri ght knee M17.11 [place] [address] [address] Mar, [place] [address] [address] Mar, BMI 50.0-59.9, adult Z68.43 and Bipolar disorder, in partial remission, most recent episode depressed F31.75 [place] [address] [address] Mar, Diabetes E11.9 ; Pure hyperc holesterolemia E78.00 ; Essential hypertension I10 ; Nausea with vomiting, unspecified R11.2 and Headache, unspecified headache type R51 [place] [address] [place] [id number] [place] [address] Mar, Bipolar I disorder, most rec ent episode (or current) mixed, moderate F31.62 [facility] [address] [facility] [id number] [address] [place] [address] Mar, Bipolar I disorder, most rec ent episode (or current) mixed, moderate F31.62 [facility] [address] [facility] [id number] [address] [place] [address] Mar, Chronic pain G89.29 [facility] [address] [facility] [id number] [address] [place] [address] Mar, Bipolar I disorder, most rec ent episode (or current) mixed, moderate F31.62 [place] [address] [facility] [id number] [address] [place] [address] Feb, Bipolar I disorder, most rec ent episode (or current) mixed, moderate F31.62 [place] [address] [place] [id number] [address] [place] [address] Feb, Chronic pain G89.29 [facility] [address] [place] [id number] [address] [place] [address] Feb, Decubitus ulcer of right josselin t, stage 3 L89.893 and BMI 50.0-59.9, adult Z68.43 [place] [address] [place] [id number] [address] [place] [address] Feb, Bipolar I disorder, most rec ent episode (or current) mixed, moderate F31.62 [facility] [address] [facility] [id number] [address] [place] [address] Feb, [facility] [address] [facility] [id number] [address] [place] [address] January, [facility] [address] [facility] [id number] [address] [place] [address] January, Chronic pain G89.29 [facility] [address] [address] January, Bipolar I disorder, most rec ent episode (or current) mixed, moderate F31.62 [place] [address] [address] January, Bipolar I disorder, most rec ent episode (or current) mixed, moderate F31.62 [place] [address] [address] Dec, Bipolar I disorder, most rec ent episode (or current) mixed, moderate F31.62 and BMI 50.0-59.9, adult Z68.43 [place] [address] [address] Dec, Bipolar I disorder, most rec ent episode (or current) mixed, moderate F31.62 [place] [address] [address] Dec, Chronic pain G89.29 [place] [address] [address] Dec, DM neuro manif type II E11.4 9 ; Right flank pain R10.9 ; MCFP 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 Z79.891 ; Encounter for medication monitoring Z51.81 and BMI 50.0-59.9, adult Z68.43 [place] [address] [address] Dec, Bipolar I disorder, most rec ent episode (or current) mixed, moderate F31.62 [place] [address] [address] Nov, Bipolar I disorder, most rec ent episode (or current) mixed, moderate F31.62 [place] [address] [address] Nov, Chronic pain G89.29 [place] [address] [address] Nov, Bipolar I disorder, most rec ent episode (or current) mixed, moderate F31.62 [facility] [address] [facility] [id number] [address] [place] [address] Nov, Hypokalemia E87.6 [facility] [address] [facility] [id number] [address] [place] [address] Nov, Bipolar I disorder, most rec ent episode (or current) mixed, moderate F31.62 [facility] [address] [place] [id number] [address] [place] [address] Oct, Chronic pain G89.29 [place] [address] [place] [id number] [address] [place] [address] Oct, BMI 50.0-59.9, adult Z68.43 and Bipolar I disorder, most recent episode (or current) mixed, moderate F31.62 [place] [address] [place] [id number] [address] [place] [address] Oct, Bipolar I disorder, most rec ent episode (or current) mixed, moderate F31.62 [place] [address] [place] [id number] [address] [place] [address] Oct, [place] [address] [place] [id number] [address] [place] [address] Oct, Hypokalemia E87.6 [facility] [address] [place] [id number] [address] [place] [address] Oct, DM neuro manif type II E11.4 9 [facility] [address] [facility] [id number] [address] [place] [address] Oct, Bipolar I disorder, most rec ent episode (or current) mixed, moderate F31.62 [facility] [address] [place] [id number] [address] [place] [address] Oct, Bipolar I disorder, most rec ent episode (or current) mixed, moderate F31.62 [place] [address] [address] 14 Oct, 2017 Hyperkalemia E87.5 ; Falling R29.6 ; BMI 50.0-59.9, adult Z68.43 and Acute left ankle pain M25.572 [place] [address] [address] 08 Oct, 2017 DM neuro manif type II E11.4 9 [place] [address] [address] Oct, [place] [address] [address] Sep, Chronic pain G89.29 [place] [address] [address] Sep, [place] [address] [address] Sep, Bilateral primary osteoarthr itis of knee M17.[address] [address] Sep, Generalized edema R60.[address] [address] 16 Sep, 2017 Bipolar I disorder, most rec ent episode (or current) mixed, moderate F31.[address] [address] 15 Sep, 2017 Hypoxia R09.02 ; Other hyper volemia E87.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 [id number] [address] [place] [address] Aug, Chronic pain G89.29 [facility] [address] [facility] [id number] [address] [place] [address] Aug, Generalized edema R60.1 [facility] [address] [place] [id number] [address] [place] [address] Aug, [facility] [address] [place] [id number] [address] [place] [address] Aug, [facility] [address] [place] [id number] [place] [address] Aug, Bipolar I disorder, most rec ent episode (or current) mixed, moderate F31.62 [place] [address] [place] [id number] [address] [place] [address] Aug, Bipolar I disorder, most rec ent episode (or current) mixed, moderate F31.62 [place] [address] [place] [id number] [address] [place] [address] Aug, Chronic pain G89.29 [facility] [address] [place] [id number] [address] [place] [address] 30 Jul, 2017 Bipolar I disorder, most rec ent episode (or current) mixed, moderate F31.62 [facility] [address] [place] [id number] [address] [place] [address] Jul, Bipolar I disorder, most rec ent episode (or current) mixed, moderate F31.62 and BMI 60.0-69.9, adult Z68.44 [facility] [address] [place] [id number] [address] [place] [address] 16 Jul, 2017 Bipolar I disorder, most rec ent episode (or current) mixed, moderate F31.62 [place] [address] [place] [id number] [address] [place] [address] Jul, Chronic pain G89.29 [facility] [address] [id number] [address] [place] [address] Jul, Bipolar I disorder, most rec ent episode (or current) mixed, moderate F31.62 [facility] [address] [facility] [id number] [address] [place] [address] Jun, Polyneuropathy associated wi th underlying disease G63 and Diabetes E11.9 [facility] [address] [id number] [address] [place] [address] Jun, Bipolar I disorder, most rec ent episode (or current) mixed, moderate F31.62 [facility] [address] [facility] [id number] [address] [place] [address] Jun, Chronic pain G89.29 [facility] [address] [facility] [id number] [address] [place] [address] May, Bipolar I disorder, most rec ent episode (or current) mixed, moderate F31.62 [facility] [address] [facility] [id number] [address] [place] [address] May, Bipolar I disorder, most rec ent episode (or current) mixed, moderate F31.62 [facility] [address] [facility] [id number] [address] [place] [address] May, Diabetic polyneuropathy asso ciated with type 2 diabetes mellitus E11.42 [facility] [address] [id number] [address] [place] [address] 18 May, 2017 Bipolar I disorder, most rec ent episode (or current) mixed, moderate F31.62 [facility] [address] [facility] [id number] [address] [place] [address] 13 May, 2017 Bipolar I disorder, most rec ent episode (or current) mixed, moderate F31.62 [facility] [address] [facility] [id number] [address] [place] [address] 12 May, 2017 Chronic pain G89.29 [facility] [address] [id number] [address] [place] [address] Apr, Bipolar I disorder, most rec ent episode (or current) mixed, moderate F31.62 [facility] [address] [id number] [address] [place] [address] Apr, [facility] [address] [facility] [id number] [address] [place] [address] Apr, Chronic pain G89.29 and DM n euro manif type II E11.49 [facility] [address] [id number] [address] [place] [address] Apr, [facility] [address] [id number] [address] [place] [address] Apr, Bipolar I disorder, most rec ent episode (or current) mixed, moderate F31.62 [facility] [address] [facility] [id number] [address] [place] [address] Apr, Chronic pain G89.29 [facility] [address] [id number] [address] [place] [address] Apr, Iliotibial band syndrome, le ft M76.32 [facility] [address] [facility] [id number] [address] [place] [address] Apr, Bipolar I disorder, most rec ent episode (or current) mixed, moderate F31.62 [facility] [address] [facility] [id number] [address] [place] [address] Mar, Bipolar I disorder, most rec ent episode (or current) mixed, moderate F31.62 [facility] [address] [facility] [id number] [address] [place] [address] Mar, Bipolar I disorder, most rec ent episode (or current) mixed, moderate F31.62 [facility] [address] [facility] [id number] [address] [place] [address] Mar, [facility] [address] [facility] [id number] [address] [place] [address] Mar, Bipolar I disorder, most rec ent episode (or current) mixed, moderate F31.62 [facility] [address] [id number] [address] [place] [phone] Mar, Chronic pain G89.29 [facility] [address] [id number] [address] [place] [id number] Mar, Bipolar I disorder, most rec ent episode (or current) mixed, moderate F31.62 [facility] [address] [facility] [id number] [address] [place] [phone] Mar, Bipolar I disorder, most rec ent episode (or current) mixed, moderate F31.62 [place] [address] [facility] [id number] [address] [place] [phone] Mar, Acute pain of left knee M25. 562 ; Left hip pain M25.552 ; Generalized edema R60.1 and Tongue swelling R22.0 [facility] [address] [facility] [id number] [address] [place] [phone] Mar, [facility] [address] [id number] [address] [place] [phone] Feb, Chronic pain G89.29 [facility] [address] [facility] [id number] [address] [place] [id number] Feb, Diabetes E11.9 [facility] [address] [id number] [address] [place] [id number] January, Chronic pain G89.29 [facility] [address] [id number] [address] [place] [address] January, [facility] [address] [facility] [id number] [address] [place] [address] January, Bipolar I disorder, most rec ent episode (or current) mixed, moderate F31.62 [facility] [address] [facility] [id number] [address] [place] [address] Dec, Bipolar I disorder, most rec ent episode (or current) mixed, moderate F31.62 [facility] [address] [id number] [address] [place] [address] Dec, Chronic pain G89.29 [facility] [address] [facility] [id number] [address] [place] [address] Dec, Bipolar I disorder, most rec ent episode (or current) mixed, moderate F31.62 [facility] [address] [facility] [id number] [address] [place] [address] Dec, Diabetes E11.9 ; Essential h ypertension I10 ; Chronic pain G89.29 and Morbid obesity E66.01 [facility] [address] [id number] [address] [place] [address] Dec, [facility] [address] [facility] [id number] [address] [place] [address] Dec, Bipolar I disorder, most rec ent episode (or current) mixed, moderate F31.62 [facility] [address] [facility] [id number] [address] [place] [address] Dec, Bipolar I disorder, most rec ent episode (or current) mixed, moderate F31.62 [facility] [address] [facility] [id number] [address] [place] [address] Nov, Chronic pain G89.29 [facility] [address] [id number] [address] [place] [address] Nov, Bipolar I disorder, most rec ent episode (or current) mixed, moderate F31.62 [facility] [address] [id number] [address] [place] [address] Nov, [facility] [address] [facility] [id number] [address] [place] [address] Nov, Bipolar I disorder, most rec ent episode (or current) mixed, moderate F31.62 [facility] [address] [facility] [id number] [address] [place] [address] Nov, Bipolar I disorder, most rec ent episode (or current) mixed, moderate F31.62 [facility] [address] [facility] [id number] [address] [place] [address] Nov, [facility] [address] [facility] [id number] [address] [place] [address] Nov, [facility] [address] [place] [id number] [address] [place] [address] Nov, [facility] [address] [facility] [id number] [address] [place] [address] Oct, Chronic pain G89.29 [facility] [address] 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 [id number] [address] [place] [address] Oct, Bipolar I disorder, most rec ent episode (or current) mixed, moderate F31.62 [facility] [address] [facility] [id number] [address] [place] [address] Sep, Chronic pain G89.29 [facility] [address] [place] [id number] [address] [place] [address] Sep, Chronic pain G89.29 [facility] [address] [facility] [id number] [address] [place] [address] Aug, Chronic pain G89.29 [facility] [address] [facility] [id number] [address] [place] [address] Jul, [facility] [address] [facility] [id number] [address] [place] [address] Jul, Diabetes E11.9 [facility] [address] [facility] [id number] [address] [place] [address] Jul, Chronic pain G89.29 [facility] [address] [facility] [id number] [address] [place] [address] Jul, Bipolar I disorder, most rec ent episode (or current) mixed, moderate F31.62 [place] [address] [place] [id number] [address] [place] [address] Jun, Bipolar I disorder, most rec ent episode (or current) mixed, moderate F31.62 [place] [address] [facility] [id number] [address] [place] [address] Jun, [facility] [address] [facility] [id number] [address] [place] [address] Jun, Bipolar I disorder, most rec ent episode (or current) mixed, moderate F31.62 [place] [address] [facility] [id number] [address] [place] [address] 30 May, 2016 Insomnia, unspecified type G 47.00 [facility] [address] [facility] [id number] [address] [place] [address] 22 May, 2016 Bipolar I disorder, most rec ent episode (or current) mixed, moderate F31.62 [facility] [address] [facility] [id number] [address] [place] [address] 14 May, 2016 [facility] [address] [facility] [id number] [address] [place] [address] 08 May, 2016 Bipolar I disorder, most rec ent episode (or current) mixed, moderate F31.62 [place] [address] [facility] [id number] [address] [place] [address] May, Diabetes E11.9 and Essential hypertension I10 [place] [address] [facility] [id number] [address] [place] [address] Apr, Chronic pain G89.29 [place] [address] [facility] [id number] [address] [place] [address] Apr, Bipolar I disorder, most rec ent episode (or current) mixed, moderate F31.62 [place] [address] [facility] [id number] [address] [place] [address] Apr, [place] [address] [facility] [id number] [address] [place] [address] Apr, [place] [address] [place] [id number] [address] [place] [address] Mar, Chronic pain G89.29 ; Headac he, unspecified headache type R51 ; Neuropathy G62.9 ; Pain of right hip joint M25.551 and Essential hypertension I10 [place] [address] [facility] [id number] [address] [place] [address] Mar, Chronic pain G89.29 [place] [address] [facility] [id number] [address] [place] [address] Mar, Bipolar I disorder, most rec ent episode (or current) mixed, moderate F31.62 [place] [address] [facility] [id number] [address] [place] [address] Feb, Bipolar I disorder, most rec ent episode (or current) mixed, moderate F31.62 and Insomnia, unspecified type G47.00 [place] [address] [facility] [id number] [address] [place] [address] Feb, Chronic pain G89.29 [place] [address] [facility] [id number] [address] [place] [address] Feb, Bipolar I disorder, most rec ent episode (or current) mixed, moderate F31.62 [facility] [address] [id number] [address] [place] [address] January, Bipolar I disorder, most rec ent episode (or current) mixed, moderate F31.62 [facility] [address] [id number] [address] [place] [address] January, Chronic pain G89.29 [facility] [address] [id number] [address] [place] [address] January, Chronic pain G89.29 and Esse ntial hypertension I10 [facility] [address] [id number] [address] [place] [address] January, Bipolar I disorder, most rec ent episode (or current) mixed, moderate F31.62 [facility] [address] [id number] [address] [place] [address] Dec, [facility] [address] [id number] [address] [place] [address] Dec, [facility] [address] [id number] [address] [place] [address] Dec, [facility] [address] [id number] [address] [place] [address] Dec, [facility] [address] [id number] [address] [place] [address] Nov, Reactive airway disease J45. 909 [facility] [address] [id number] [address] [place] [address] Nov, [facility] [address] [id number] [address] [place] [address] Nov, [facility] [address] [id number] [address] [place] [address] Nov, [facility] [address] [id number] [address] [place] [address] Nov, [facility] [address] [address] Nov, Onychomycosis B35.1 ; Hammer toe M20.40 ; Shelby or callus L84 and DM neuro manif type II E11.49 [place] [address] [address] Nov, Chronic pain G89.29 ; Leukoc ytosis D72.829 and Diabetes E11.9 [place] [address] [address] Nov, [place] [address] [address] Oct, Bronchitis J40 [place] [address] [address] Oct, [place] [address] [address] Oct, [place] [address] [address] Oct, Mastoiditis, unspecified lat erality H70.90 and Type 2 diabetes mellitus with complication E11.[address] [address] Sep, [address] [address] Sep, Dysuria R30.0 ; Cough R05 ; Benign prostatic hyperplasia with lower urinary tract symptoms, unspecified morphology N40.1 ; Hypokalemia E87.6 and Eustachian tube dysfunction, unspecified laterality H69.[address] [address] Sep, Moderate mixed bipolar I dis order F31.[address] [address] Sep, Hypokalemia E87.6 [place] [address] [place] [address] Sep, [facility] [address] [id number] [address] [place] [address] Sep, Upper respiratory tract infe ction, unspecified type J06.9 [facility] [address] [id number] [address] [place] [address] Aug, [facility] [address] [id number] [address] [place] [address] Aug, Dysuria R30.0 [facility] [address] [id number] [address] [place] [address] Aug, [facility] [address] [id number] [address] [place] [address] Jul, [facility] [address] [id number] [address] [place] [address] Jul, [facility] [address] [id number] [address] [place] [address] Jul, [facility] [address] [id number] [address] [place] [address] Jul, [facility] [address] [facility] [id number] [address] [place] [address] Jun, [facility] [address] [id number] [address] [place] [address] Jun, [facility] [address] [id number] [address] [place] [address] Jun, [facility] [address] [id number] [address] [place] [address] 29 May, 2015 [facility] [address] [facility] [id number] [address] [place] [address] May, Bipolar I disorder, most rec ent episode (or current) mixed, moderate 296.62 [facility] [address] [id number] [address] [place] [address] May, [facility] [address] [id number] [address] [place] [address] May, Bipolar I disorder, most rec ent episode (or current) mixed, moderate 296.62 and Major depressive disorder, recurrent episode, severe, specified as with psychotic behavior 296.34 [facility] [address] [id number] [address] [place] [address] May, Bipolar I disorder, most rec ent episode (or current) mixed, moderate 296.62 [facility] [address] [id number] [address] [place] [address] May, [facility] [address] [facility] [id number] [address] [place] [address] Apr, [facility] [address] [facility] [id number] [address] [place] [address] Apr, [facility] [address] [facility] [id number] [address] [place] [address] Apr, Unspecified disorder of kidn ey and ureter 593.9 and Diabetes mellitus type 2, uncontrolled 250.02 [facility] [address] [facility] [id number] [address] [place] [address] Apr, [facility] [address] [facility] [id number] [address] [place] [address] Apr, [facility] [address] [facility] [id number] [address] [place] [address] Apr, [facility] [address] [id number] [address] [place] [address] Apr, [facility] [address] [facility] [id number] [address] [place] [address] Apr, Diabetes mellitus type II, u ncontrolled 250.02 [facility] [address] [facility] [id number] [address] [place] [address] Apr, [facility] [address] [facility] [id number] [address] [place] [address] Mar, [facility] [address] [facility] [id number] [address] [place] [address] Mar, [facility] [address] [facility] [id number] [address] [place] [address] Mar, [facility] [address] [facility] [id number] [address] [place] [address] Mar, Major depressive disorder, r ecurrent episode, severe, specified as with psychotic behavior 296.34 and Bipolar I disorder, most recent episode (or current) mixed, moderate 296.62 [facility] [address] [facility] [id number] [address] [place] [address] Mar, Diabetes 250.00 ; Anuria 788 .5 ; Nausea and vomiting 787.01 and Diarrhea 787.91 [facility] [address] [facility] [id number] [address] [place] [address] Mar, Diabetes 250.00 [facility] [address] [facility] [id number] [address] [place] [address] Mar, [facility] [address] [facility] [id number] [address] [place] [address] Mar, Diabetes 250.00 [facility] [address] [facility] [id number] [address] [place] [address] Mar, [facility] [address] [facility] [id number] [address] [place] [address] Mar, [facility] [address] [facility] [id number] [address] [place] [address] Mar, [facility] [address] [facility] [id number] [address] [place] [address] Mar, [facility] [address] [facility] [id number] [address] [place] [address] Mar, Bipolar I disorder, most rec ent episode (or current) mixed, moderate 296.62 and Major depressive disorder, recurrent episode, severe, specified as with psychotic behavior 296.34 [place] [address] [address] Mar, Magnesium deficiency 275.2 ; Hypokalemia 276.8 ; Nausea & vomiting 787.01 and Diabetes mellitus type 2, uncontrolled 250.02 [place] [address] [address] Feb, [place] [address] [address] Feb, Bipolar I disorder, most rec ent episode (or current) mixed, moderate 296.[address] [address] Feb, Nausea and vomiting 787.01 ; Left elbow pain 719.42 ; Anuria 788.5 and Diabetes 250.[address] [address] Feb, [place] [address] [address] Feb, Hypopotassemia 276.8 and Hyp okalemia 276.[address] [address] Feb, Hypopotassemia 276.8 and Hyp okalemia 276.[address] [address] Feb, Seborrheic keratoses 702.19 [place] [address] [address] Feb, Hypopotassemia 276.8 and Low magnesium levels 275.2 [place] [address] [address] January, [place] [address] [address] January, [place] [address] [address] January, [facility] [address] [id number] [address] [place] [address] January, Scalp lesion 709.9 [facility] [address] [id number] [address] [place] [address] January, [facility] [address] [id number] [address] [place] [address] Dec, Tear of medial cartilage or meniscus of knee, current 836.0 and 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 [facility] [address] [id number] [address] [place] [address] Dec, [facility] [address] [id number] [address] [place] [address] Dec, [facility] [address] [id number] [address] [place] [address] Dec, Squamous cell carcinoma, 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 [facility] [address] [id number] [address] [place] [address] Dec, [facility] [address] [id number] [address] [place] [address] Dec, [facility] [address] [id number] [address] [place] [address] Nov, [facility] [address] [id number] [address] [place] [address] Nov, [facility] [address] [id number] [address] [place] [address] Nov, [facility] [address] [id number] [address] [place] [address] Nov, [facility] [address] [id number] [address] [place] [address] Nov, [facility] [address] [id number] [address] [place] [address] Nov, [facility] [place] [facility] [address] [id number] [address] [place] [address], [place] [address] Nov, [facility] [place] [facility] [address] [id number] [address] [place] [address], [place] [address] Nov, 2014 [facility] [place] [facility] [address] [id number] [address] [place] [address], [place] [address] Nov, 2014 [facility] [place] [facility] [address] [id number] [address] [place] [address], [place] [address] Nov, [facility] [place] [facility] [address] [id number] [address] [place] [address], [place] [address] Nov, [facility] [place] [facility] [address] [id number] [address] [place] [address], [place] [address] Nov, [facility] [place] [facility] [address] [id number] [address] [place] [address], [place] [address] Oct, 2014 [facility] [address] [id number] [address] [place] [address], [place] [address] Oct, 2014 [facility] [address] [id number] [address] [place] [address], [place] [address] Oct, 2014 [facility] [address] [id number] [address] [place] [address], [place] [address] Oct, 2014 [facility] [address] [id number] [address] [place] [address], [place] [address] Oct, 2014 [facility] [address] [id number] [address] [place] [address] Oct, 2014 [facility] [address] [id number] [address] [place] [address], [place] [address] Oct, 2014 [facility] [address] [id number] [address] [place] [address], [place] [address] Oct, 2014 [facility] [address] [id number] [address] [place] [address], [place] [address] Oct, 2014 [facility] [address] [id number] [address] [place] [address], [place] [address] Sep, [facility] [address] [id number] [address] [place] [address], [place] [address] Sep, [facility] [address] [id number] [address] [place] [address], [place] [address] Sep, [facility] [address] [id number] [address] [place] [address], [place] [address] Sep, [facility] [address] [id number] [address] [place] [address], [place] [address] Sep, [facility] [address] [id number] [address] [place] [address], [place] [address] Sep, [facility] [address] [id number] [address] [place] [address], [place] [address] Sep, [facility] [address] [id number] [address] [place] [address], [place] [address] Sep, [facility] [address] [id number] [address] [place] [address], [place] [address] Sep, [facility] [address] [id number] [address] [place] [address], [place] [address] Sep, [facility] [address] [id number] [address] [place] [address], [place] [address] Sep, [facility] [address] [id number] [address] [place] [address], [place] [address] Sep, [facility] [address] [id number] [address] [place] [address], [place] [address] Sep, [facility] [address] [id number] [address] [place] [address], [place] [address] Sep, [facility] [address] [id number] [address] [place] [address], [place] [address] Sep, [facility] [address] [id number] [address] [place] [address], [place] [address] Sep, [facility] [address] [id number] [facility] [place] [address] Aug, [facility] [facility] [address] [id number] [facility] [place] [address] Aug, [facility] [address] [id number] [address] [place] [address], [place] [address] Aug, [facility] [address] [id number] [address] [place] [address], [place] [address] Aug, [facility] [address] [id number] [address] [place] [address], [place] [address] Aug, [facility] [address] [id number] [address] [place] [address], [place] [address] Aug, [facility] [address] [id number] [address] [place] [address], [place] [address] Aug, [facility] [address] [id number] [address] [place] [address], [place] [address] Aug, [facility] [address] [id number] [address] [place] [address], [place] [address] Aug, [facility] [address] [id number] [address] [place] [address], [place] [address] Aug, [facility] [address] [id number] [address] [place] [address], [place] [address] Aug, [facility] [place] [address] [place] [id number] Aug, [facility] [address] [id number] [address] [place] [address], [place] [address] Aug, [facility] [address] [id number] [address] [place] [address], [place] [address] Aug, [facility] [address] [id number] [address] [place] [address], [place] [address] Aug, [facility] [address] [id number] [address] [place] [address], [place] [address] Aug, [facility] [address] [id number] [address] [place] [address], [place] [address] Aug, [facility] [address] [id number] [address] [place] [address], [place] [address] Aug, [facility] [address] [id number] [address] [place] [address], [place] [address] Aug, [facility] [address] [id number] [address] [place] [address], [place] [address] Aug, [facility] [address] [id number] [address] [place] [address], [place] [address] Aug, [facility] [address] [id number] [address] [place] [address], [place] [address] Aug, [facility] [address] [id number] [address] [place] [address], [place] [address] Aug, [facility] [address] [id number] [address] [place] [address], [place] [address] Aug, [facility] [address] [id number] [address] [place] [address], [place] [address] Aug, [facility] [address] [id number] [address] [place] [address], [place] [address] Aug, [facility] [address] [id number] [address] [place] [address], [place] [address] Aug, [facility] [address] [id number] [address] [place] [address], [place] [address] Aug, [facility] [address] [id number] [address] [place] [address], [place] [address] Aug, [facility] [address] [id number] [address] [place] [address], [place] [address] Aug, [facility] [address] [id number] [address] [place] [address], [place] [address] Jul, [facility] [address] [id number] [address] [place] [address], [place] [address] Jul, [facility] [address] [id number] [address] [place] [address], [place] [address] Jul, [facility] [address] [id number] [address] [place] [address], [place] [address] Jul, [facility] [address] [id number] [address] [place] [address], [place] [address] Jul, [facility] [address] [id number] [address] [place] [address], [place] [address] Jul, [facility] [address] [id number] [address] [place] [address], [place] [address] Jul, [facility] [address] [id number] [address] [place] [address], [place] [address] Jul, [facility] [address] [id number] [address] [place] [address], [place] [address] Jul, [facility] [address] [id number] [address] [place] [address], [place] [address] Jul, [facility] [address] [id number] [address] [place] [address], [place] [address] Jun, [facility] [address] [id number] [address] [place] [address], [place] [address] Jun, [facility] [address] [id number] [address] [place] [address], [place] [address] Jun, [facility] [address] [id number] [address] [place] [address], [place] [address] 16 Jun, 2014 [facility] [address] [id number] [address] [place] [address], [place] [address] 15 Jun, 2014 [facility] [address] [id number] [address] [place] [address], [place] [address] 15 Jun, 2014 [facility] [address] [id number] [address] [place] [address], [place] [address] Jun, [facility] [address] [id number] [address] [place] [address], [place] [address] Jun, [facility] [address] [id number] [address] [place] [address], [place] [address] Jun, [facility] [address] [id number] [address] [place] [address], [place] [address] Jun, [facility] [address] [id number] [address] [place] [address], [place] [address] 29 May, 2013 [facility] [address] [id number] [address] [place] [address], [place] [address] 29 May, 2013 [facility] [address] [id number] [address] [place] [address], [place] [address] 26 May, 2013 [facility] [address] [id number] [address] [place] [address], [place] [address] 26 May, 2013 [facility] [address] [id number] [address] [place] [address], [place] [address] 17 May, 2013 [facility] [address] [id number] [address] [place] [address], [place] [address] 17 May, 2013 [facility] [address] [id number] [address] [place] [address], [place] [address] 15 May, 2013 [facility] [address] [id number] [address] [place] [address], [place] [address] 15 May, 2013 [facility] [address] [id number] [address] [place] [address] 15 May, 2013 [facility] [address] [id number] [address] [place] [address], [place] [address] 15 May, 2013 [facility] [address] [id number] [address] [place] [address], [place] [address] 10 May, 2013 [facility] [address] [id number] [address] [place] [address] 10 May, 2013 [facility] [address] [id number] [address] [place] [address], [place] [address] May, [facility] [address] [id number] [address] [place] [address], [place] [address] May, [facility] [address] [id number] [address] [place] [address], [place] [address] May, [facility] [address] [id number] [address] [place] [address], [place] [address] May, [facility] [address] [id number] [address] [place] [address], [place] [address] Apr, [facility] [address] [id number] [address] [place] [address], [place] [address] Apr, [facility] [address] [id number] [address] [place] [address], [place] [address] Apr, [facility] [address] [id number] [address] [place] [address], [place] [address] Apr, [facility] [address] [id number] [address] [place] [address], [place] [address] Apr, [facility] [address] [id number] [address] [place] [address], [place] [address] Apr, [facility] [address] [id number] [address] [place] [address], [place] [address] Apr, [facility] [address] [id number] [address] [place] [address], [place] [address] Apr, [facility] [address] [id number] [address] [place] [address], [place] [address] Apr, [facility] [address] [id number] [address] [place] [address], [place] [address] Apr, [facility] [address] [id number] [address] [place] [address], [place] [address] Apr, [facility] [address] [id number] [address] [place] [address], [place] [address] Apr, [facility] [address] [id number] [facility] [place] [address] Apr, [facility] [address] [id number] [facility] [place] [address] Apr, [facility] [address] [id number] [facility] [place] [address] Apr, [facility] [address] [id number] [facility] [place] [address] Mar, [facility] [address] [id number] [facility] [place] [address] Mar, [facility] [address] [id number] [address] [place] [address], [place] [address] Mar, [facility] [address] [id number] [address] [place] [address], [place] [address] Mar, [facility] [address] [id number] [address] [place] [address], [place] [address] Mar, [facility] [address] [id number] [address] [place] [address], [place] [address] Mar, [facility] [address] [id number] [address] [place] [address], [place] [address] Mar, [facility] [address] [id number] [address] [place] [address], [place] [address] Mar, [facility] [address] [id number] [address] [place] [address], [place] [address] Mar, [facility] [address] [id number] [address] [place] [address], [place] [address] Mar, [facility] [address] [id number] [address] [place] [address], [place] [address] Mar, [facility] [address] [id number] [address] [place] [address], [place] [address] Mar, [facility] [address] [id number] [address] [place] [address], [place] [address] Mar, 2013 [facility] [address] [id number] [facility] [place] [address] Mar, 2013 [facility] [address] [id number] [facility] [place] [address] Mar, 2013 [facility] [address] [id number] [facility] [place] [address] Mar, 2013 [facility] [address] [id number] [address] [place] [address], [place] [address] Mar, [facility] [address] [id number] [facility] [place] [address] Mar, [facility] [address] [id number] [address] [place] [address], [place] [address] Feb, [facility] [address] [id number] [address] [place] [address], [place] [address] Feb, [facility] [address] [id number] [address] [place] [address], [place] [address] Feb, [facility] [address] [id number] [address] [place] [address], [place] [address] Feb, [facility] [address] [id number] [address] [place] [address], [place] [address] Feb, [facility] [address] [id number] [address] [place] [address], [place] [address] Feb, [facility] [address] [id number] [address] [place] [address], [place] [address] Feb, [facility] [address] [id number] [address] [place] [address], [place] [address] Feb, [facility] [address] [id number] [address] [place] [address], [place] [address] Feb, [facility] [address] [id number] [address] [place] [address], [place] [address] Feb, [facility] [address] [id number] [facility] [place] [address] Feb, [facility] [address] [id number] [address] [place] [address], [place] [address] Feb, [facility] [address] [id number] [address] [place] [address], [place] [address] Feb, [facility] [address] [id number] [address] [place] [address], [place] [address] Feb, [facility] [address] [id number] [address] [place] [address], [place] [address] January, [facility] [address] [id number] [address] [place] [address], [place] [address] January, [facility] [address] [id number] [address] [place] [address], [place] [address] January, [facility] [address] [id number] [address] [place] [address], [place] [address] January, [facility] [address] [id number] [address] [place] [address], [place] [address] January, [facility] [address] [id number] [address] [place] [address], [place] [address] January, [facility] [address] [id number] [address] [place] [address], [place] [address] January, [facility] [address] [id number] [address] [place] [address], [place] [address] January, [facility] [address] [id number] [address] [place] [address], [place] [address] January, [facility] [address] [id number] [address] [place] [address], [place] [address] January, [facility] [address] [id number] [address] [place] [address], [place] [address] January, [facility] [address] [id number] [address] [place] [address], [place] [address] January, [facility] [address] [id number] [facility] [place] [address] January, [facility] [address] [id number] [address] [place] [address], [place] [address] January, [facility] [address] [id number] [address] [place] [address], [place] [address] Dec, [facility] [address] [id number] [address] [place] [address], [place] [address] Dec, [facility] [address] [id number] [address] [place] [address], [place] [address] Dec, [facility] [address] [id number] [address] [place] [address], [place] [address] Dec, [facility] [address] [id number] [address] [place] [address], [place] [address] Dec, [facility] [address] [id number] [address] [place] [address], [place] [address] Dec, [facility] [address] [id number] [address] [place] [address], [place] [address] Dec, [facility] [address] [id number] [address] [place] [address], [place] [address] Dec, [facility] [address] [id number] [address] [place] [address], [place] [address] Dec, [facility] [address] [id number] [address] [place] [address], [place] [address] Dec, [facility] [address] [id number] [address] [place] [address], [place] [address] Nov, [facility] [address] [id number] [address] [place] [address], [place] [address] Nov, [facility] [address] [id number] [address] [place] [address], [place] [address] Nov, [facility] [address] [id number] [address] [place] [address], [place] [address] Nov, [facility] [address] [id number] [address] [place] [address], [place] [address] 08 Nov, 2013 [facility] [address] [id number] [address] [place] [address], [place] [address] 08 Nov, 2013 [facility] [address] [id number] [address] [place] [address], [place] [address] Nov, [facility] [address] [id number] [address] [place] [address], [place] [address] Nov, [facility] [address] [id number] [address] [place] [address], [place] [address] Nov, [facility] [address] [id number] [address] [place] [address], [place] [address] Nov, [facility] [address] [id number] [address] [place] [address], [place] [address] Oct, [facility] [address] [id number] [address] [place] [address], [place] [address] Oct, [facility] [address] [id number] [address] [place] [address], [place] [address] Oct, [facility] [address] [id number] [address] [place] [address], [place] [address] Oct, [facility] [address] [id number] [address] [place] [address], [place] [address] 20 Oct, 2013 [facility] [address] [id number] [address] [place] [address], [place] [address] Oct, [facility] [address] [id number] [address] [place] [address], [place] [address] 14 Oct, 2013 [facility] [address] [id number] [address] [place] [address], [place] [address] 14 Oct, 2013 [facility] [address] [id number] [address] [place] [address], [place] [address] 05 Oct, 2013 [facility] [address] [id number] [address] [place] [address], [place] [address] Oct, [facility] [address] [id number] [address] [place] [address], [place] [address] Oct, [facility] [address] [id number] [address] [place] [address], [place] [address] Oct, [facility] [address] [id number] [address] [place] [address], [place] [address] Oct, [facility] [address] [id number] [address] [place] [address], [place] [address] Oct, [facility] [address] [id number] [address] [place] [address], [place] [address] Sep, [facility] [address] [id number] [address] [place] [address], [place] [address] Sep, [facility] [address] [id number] [address] [place] [address], [place] [address] Sep, [facility] [address] [id number] [address] [place] [address], [place] [address] Sep, [facility] [address] [id number] [address] [place] [address], [place] [address] Sep, [facility] [address] [id number] [address] [place] [address], [place] [address] Sep, [facility] [address] [id number] [address] [place] [address], [place] [address] Sep, [facility] [address] [id number] [address] [place] [address], [place] [address] Sep, [facility] [address] [id number] [address] [place] [address], [place] [address] Sep, [facility] [address] [id number] [address] [place] [address], [place] [address] Sep, [facility] [address] [id number] [address] [place] [address], [place] [address] 10 Aug, 2013 [facility] [address] [id number] [address] [place] [address], [place] [address] Aug, [facility] [address] [id number] [address] [place] [address], [place] [address] Jul, [facility] [address] [id number] [address] [place] [address], [place] [address] Jul, [facility] [address] [id number] [address] [place] [address], [place] [address] Jul, [facility] [address] [id number] [address] [place] [address], [place] [address] Jul, [facility] [address] [id number] [address] [place] [address], [place] [address] Jul, [facility] [address] [id number] [address] [place] [address], [place] [address] Jul, [facility] [address] [id number] [address] [place] [address], [place] [address] Jul, [facility] [address] [id number] [address] [place] [address], [place] [address] Jul, [facility] [address] [id number] [address] [place] [address], [place] [address] Jul, [facility] [address] [id number] [address] [place] [address], [place] [address] Jul, [facility] [address] [id number] [address] [place] [address] Jul, [facility] [address] [id number] [address] [place] [address] Jul, [facility] [address] [id number] [address] [place] [address], [place] [address] Jul, [facility] [address] [id number] [address] [place] [id number] 05 Jul, 2013 [facility] [address] [id number] [address] [place] [address], [place] [address] Jul, 2012 [facility] [address] [id number] [address] [place] [address], [place] [address] Jul, 2012 [facility] [address] [id number] [address] [place] [address], [place] [address] Jul, 2012 [facility] [address] [id number] [address] [place] [address], [place] [address] Jul, 2012 [facility] [address] [id number] [address] [place] [address], [place] [address] Jul, 2012 [facility] [address] [id number] [address] [place] [address], [place] [address] Jun, 2012 [facility] [address] [id number] [address] [place] [address], [place] [address] Jun, 2012 [facility] [address] [id number] [address] [place] [address], [place] [address] Jun, [facility] [address] [id number] [address] [place] [address], [place] [address] Jun, [facility] [address] [id number] [address] [place] [address], [place] [address] Jun, 2012 [facility] [address] [id number] [address] [place] [address], [place] [address] Jun, [facility] [address] [id number] [address] [place] [address], [place] [address] Jun, [facility] [address] [id number] [address] [place] [address], [place] [address] Jun, [facility] [address] [id number] [address] [place] [address], [place] [address] Jun, [facility] [address] [id number] [address] [place] [address] Jun, [facility] [address] [id number] [address] [place] [address] Jun, [facility] [address] [id number] [address] [place] [address], [place] [address] May, 2012 [facility] [address] [id number] [address] [place] [address], [place] [address] May, [facility] [address] [id number] [address] [place] [address], [place] [address] May, 2012 [facility] [address] [id number] [address] [place] [address], [place] [address] 17 May, 2012 [facility] [address] [id number] [address] [place] [address], [place] [address] May, [facility] [address] [id number] [address] [place] [address], [place] [address] May, [facility] [address] [id number] [address] [place] [address], [place] [address] May, [facility] [address] [id number] [address] [place] [address], [place] [address] May, [facility] [address] [address] [id number] [address] [place] [address], [place] [address] Apr, [facility] [address] [id number] [address] [place] [address], [place] [address] Apr, [facility] [address] [id number] [address] [place] [address], [place] [address] Apr, [facility] [address] [id number] [address] [place] [address], [place] [address] Apr, [facility] [address] [id number] [address] [place] [address], [place] [address] Apr, [facility] [address] [id number] [address] [place] [address], [place] [address] Mar, [facility] [address] [id number] [address] [place] [address], [place] [address] Mar, [facility] [address] [id number] [address] [place] [address], [place] [address] Mar, [facility] [address] [id number] [address] [place] [address], [place] [address] Mar, [facility] [address] [id number] [address] [place] [address], [place] [address] Mar, [facility] [address] [id number] [address] [place] [address], [place] [address] Mar, [facility] [address] [id number] [address] [place] [address], [place] [address] Mar, [facility] [address] [id number] [address] [place] [address], [place] [address] Mar, [facility] [address] [id number] [address] [place] [address], [place] [address] Feb, [facility] [address] [id number] [address] [place] [address], [place] [address] Feb, [facility] [address] [id number] [address] [place] [address], [place] [address] January, [facility] [address] [id number] [address] [place] [address], [place] [address] January, [facility] [address] [id number] [address] [place] [address], [place] [address] Dec, [facility] [address] [id number] [address] [place] [address], [place] [address] Dec, [facility] [address] [id number] [address] [place] [address], [place] [address] Nov, [facility] [address] [id number] [address] [place] [address], [place] [address] Nov, [facility] [address] [id number] [address] [place] [address], [place] [address] Nov, [facility] [address] [id number] [address] [place] [address], [place] [address] Nov, [facility] [address] [id number] [address] [place] [address], [place] [address] Oct, [facility] [address] [id number] [address] [place] [address], [place] [address] Oct, [facility] [address] [id number] [address] [place] [address], [place] [address] Oct, [facility] [address] [id number] [address] [place] [address], [place] [address] Oct, [facility] [address] [id number] [address] [place] [address], [place] [address] 16 Oct, 2012 [facility] [address] [id number] [address] [place] [address], [place] [address] 14 Oct, 2012 [facility] [address] [id number] [address] [place] [address], [place] [address] 08 Oct, 2012 [facility] [address] [id number] [address] [place] [address], [place] [address] 07 Oct, 2012 [facility] [address] [id number] [address] [place] [address], [place] [address] 03 Oct, 2012 [facility] [address] [id number] [address] [place] [address], [place] [address] Sep, [facility] [address] [id number] [address] [place] [address], [place] [address] Sep, [facility] [address] [id number] [address] [place] [address], [place] [address] Sep, [facility] [address] [id number] [address] [place] [address], [place] [address] Sep, [facility] [address] [id number] [address] [place] [address], [place] [address] Sep, [facility] [address] [id number] [address] [place] [address], [place] [address] Sep, [facility] [address] [id number] [address] [place] [address], [place] [address] Sep, [facility] [address] [id number] [address] [place] [address], [place] [address] Sep, [facility] [address] [id number] [address] [place] [address], [place] [address] Aug, [facility] [address] [id number] [address] [place] [address], [place] [address] Aug, [facility] [address] [id number] [address] [place] [address], [place] [address] Aug, [facility] [address] [id number] [address] [place] [address], [place] [address] Aug, [facility] [address] [id number] [address] [place] [address], [place] [address] Aug, [facility] [address] [id number] [address] [place] [address], [place] [address] Aug, [facility] [address] [id number] [address] [place] [address], [place] [address] Aug, [facility] [address] [id number] [address] [place] [address], [place] [address] Aug, [facility] [address] [id number] [address] [place] [address], [place] [address] Jul, [facility] [address] [id number] [address] [place] [address], [place] [address] Jul, [facility] [address] [id number] [address] [place] [address], [place] [address] Jul, [facility] [address] [id number] [address] [place] [address], [place] [address] Jul, [facility] [address] [id number] [address] [place] [address], [place] [address] Jul, [facility] [address] [id number] [address] [place] [address], [place] [address] Jul, [facility] [address] [id number] [address] [place] [address], [place] [address] Jun, [facility] [address] [id number] [address] [place] [address], [place] [address] Jun, [facility] [address] [id number] [address] [place] [address], [place] [address] Jun, [facility] [address] [id number] [address] [place] [address], [place] [address] Jun, [facility] [address] [id number] [address] [place] [address], [place] [address] Jun, [facility] [address] [id number] [address] [place] [address], [place] [address] Jun, [facility] [address] [id number] [address] [place] [address], [place] [address] Jun, [facility] [address] [id number] [address] [place] [address], [place] [address] Jun, [facility] [address] [id number] [address] [place] [address], [place] [address] Jun, [facility] [address] [id number] [address] [place] [address], [place] [address] May, [facility] [address] [id number] [address] [place] [address], [place] [address] 24 May, 2012 [facility] [address] [id number] [address] [place] [address] 18 May, 2012 [facility] [address] [id number] [address] [place] [address], [place] [address] Apr, [facility] [address] [id number] [address] [place] [address], [place] [address] Apr, [facility] [address] [id number] [address] [place] [address] Apr, [facility] [address] [id number] [address] [place] [address] Apr, [facility] [address] [id number] [address] [place] [address], [place] [address] Apr, [facility] [address] [id number] [address] [place] [address], [place] [address] Apr, [facility] [address] [id number] [address] [place] [address], [place] [address] Mar, [facility] [address] [id number] [address] [place] [address], [place] [address] Mar, [facility] [address] [id number] [address] [place] [address], [place] [address] Mar, [facility] [address] [id number] [address] [place] [address], [place] [address] Mar, [facility] [address] [id number] [address] [place] [address], [place] [address] Feb, [facility] [address] [id number] [address] [place] [address], [place] [address] Feb, [facility] [address] [id number] [address] [place] [address], [place] [address] Feb, [facility] [address] [id number] [address] [place] [address], [place] [address] Feb, [facility] [address] [id number] [address] [place] [address], [place] [address] Feb, [facility] [address] [id number] [address] [place] [address], [place] [address] January, [facility] [address] [id number] [address] [place] [address], [place] [address] January, [facility] [address] [id number] [address] [place] [address], [place] [address] January, [facility] [address] [id number] [address] [place] [address], [place] [address] January, [facility] [address] [id number] [address] [place] [address], [place] [address] January, [facility] [address] [id number] [address] [place] [address], [place] [address] January, [facility] [address] [id number] [address] [place] [address], [place] [address] Dec, [facility] [address] [id number] [address] [place] [address], [place] [address] Dec, [facility] [address] [id number] [address] [place] [address], [place] [address] Dec, [facility] [address] [id number] [address] [place] [address], [place] [address] Dec, [facility] [address] [id number] [address] [place] [address], [place] [address] Dec, [facility] [address] [id number] [address] [place] [address], [place] [address] Nov, [facility] [address] [id number] [address] [place] [address], [place] [address] 14 Nov, 2011 [facility] [address] [id number] [address] [place] [address], [place] [address] Nov, [facility] [address] [id number] [address] [place] [address], [place] [address] Nov, [facility] [address] [id number] [address] [place] [address], [place] [address] 29 Oct, 2011 [facility] [address] [id number] [address] [place] [address], [place] [address] Oct, [facility] [address] [id number] [address] [place] [address], [place] [address] 24 Oct, 2011 [facility] [address] [id number] [address] [place] [address], [place] [address] 13 Oct, 2011 [facility] [address] [id number] [address] [place] [address], [place] [address] Oct, [facility] [address] [id number] [address] [place] [address], [place] [address] Sep, [facility] [address] [id number] [address] [place] [address], [place] [address] Sep, [facility] [address] [id number] [address] [place] [address], [place] [address] Sep, [facility] [address] [id number] [address] [place] [address] Sep, [facility] [address] [id number] [address] [place] [address], [place] [address] Sep, [facility] [address] [id number] [address] [place] [address], [place] [address] Sep, [facility] [address] [id number] [address] [place] [address], [place] [address] Aug, [facility] [address] [id number] [address] [place] [address], [place] [address] Aug, [facility] [address] [id number] [address] [place] [address], [place] [address] Aug, [facility] [address] [id number] [address] [place] [address], [place] [address] Jul, [facility] [address] [id number] [address] [place] [address] Jul, [facility] [address] [id number] [address] [place] [address] Jul, [facility] [address] [id number] [address] [place] [address], [place] [address] Jul, [facility] [address] [id number] [address] [place] [address], [place] [address] Jun, [facility] [address] [id number] [address] [place] [address], [place] [address] Jun, [facility] [address] [id number] [address] [place] [address], [place] [address] 18 Jun, 2011 [facility] [address] [id number] [address] [place] [address], [place] [address] 10 Jun, 2011 [facility] [address] [id number] [address] [place] [address], [place] [address] 10 Jun, 2011 [facility] [address] [id number] [address] [place] [address], [place] [address] 10 Jun, 2011 [facility] [address] [id number] [address] [place] [address], [place] [address] 11 Mar, 2011 [facility] [address] [id number] [address] [place] [address], [place] [address] 18 Dec, 2010 [facility] [address] [id number] [address] [place] [address], [place] [address] 11 Dec, 2010 [facility] [address] [id number] [address] [place] [address], [place] [address] 18 Nov, 2010 [facility] [address] [id number] [address] [place] [address], [place] [address] 16 Nov, 2010 [facility] [address] [id number] [address] [place] [address], [place] [address] 10 Sep, 2010 [facility] [address] [id number] [address] [place] [address], [place] [address] 31 Aug, 2010 [facility] [address] [id number] [address] [place] [address], [place] [address] 29 Aug, 2010 [facility] [address] [id number] [address] [place] [address], [place] [address] 29 Aug, 2010 [facility] [address] [id number] [address] [place] [address], [place] [address] 29 Aug, 2010 [facility] [address] [id number] [address] [place] [address], [place] [address] 27 Aug, 2010 [facility] [address] [id number] [address] [place] [address], [place] [address] 14 Aug, 2010 [facility] [address] [id number] [address] [place] [address], [place] [address] 08 Aug, 2010 [facility] [address] [id number] [address] [place] [address], [place] [address] 08 Aug, 2010 [facility] [address] [id number] [address] [place] [address], [place] [address] 07 Aug, 2010 [facility] [address] [id number] [address] [place] [address], [place] [address] Aug, [facility] [address] [id number] [address] [place] [address], [place] [address] Aug, [facility] [address] [id number] [address] [place] [address], [place] [address] Aug, [facility] [address] [id number] [address] [place] [address] Jul, [facility] [address] [id number] [address] [place] [address] Jul, [facility] [address] [id number] [address] [place] [address], [place] [address] Jul, [facility] [address] [id number] [address] [place] [address] Jul, [facility] [address] [id number] [address] [place] [address] Jul, [facility] [address] [id number] [address] [place] [address] Jul, [facility] [address] [id number] [address] [place] [address] Jun, [facility] [address] [id number] [address] [place] [address] Jun, [facility] [address] [id number] [address] [place] [address] Jun, [facility] [address] [id number] [address] [place] [address] 13 Jun, 2010 [facility] [address] [id number] [address] [place] [address], [place] [address] 16 Apr, 2010 [facility] [address] [id number] [address] [place] [address] 20 Mar, 2010 [facility] [address] [id number] [address] [place] [address], [place] [address] 17 Feb, 2010 [facility] [address] [id number] [address] [place] [address], [place] [address] 11 Jan, 2010 [facility] [address] [id number] [address] [place] [address], [place] [address] 15 Dec, 2009 [facility] [address] [id number] [address] [place] [address], [place] [address] Nov, [facility] [address] [id number] [address] [place] [address] 31 Aug, 2009 [facility] [address] [id number] [address] [place] [address], [place] [address] Aug, [facility] [address] [id number] [address] [place] [address] Aug, [facility] [address] [id number] [address] [place] [address] Jul, [facility] [address] [id number] [address] [place] [address] Jul, [facility] [address] [id number] [address] [place] [phone] Jul, [facility] [address] [id number] [address] [place] [id number] 30 Jun, 2009 [facility] [address] [id number] [address] [place] [id number] 29 Jun, 2009 [facility] [address] [id number] [address] [place] [id number] 26 Jun, 2009 [facility] [address] [id number] [address] [place] [id number] Jun, [facility] [address] [id number] [address] [place] [id number] Jun, [facility] [address] [id number] [address] [place] [id number] Jun, [facility] [address] [id number] [address] [place] [id number] Apr, [facility] [address] [id number] [address] [place] [phone] Apr, [facility] [address] [facility] [id number] [address] [place] [phone] Feb, [facility] [address] [facility] [id number] [address] [place] [id number] January, [facility] [address] [facility] [id number] [address] [place] [id number] Dec, IMMUNIZATIONS No Known Immunizations SOCIAL HISTORY Never Assessed REASON FOR VISIT EMR-[facility] PLAN OF CARE VITAL SIGNS [...] Hospitalization History [facility] mental health ea rly 1999's Hospitalization History hyperkalemia 10/2017 Hospitalization History fluid in lung
--- OUTSIDE RECORDS SUMMARY | 2020-03-01 17:37 | XMS REPORT ---
Author Author Michele Verduzco Doctor Organization [facility] Address Unknown Phone Unavailable Care Team Providers Care Bottom Hoop Driver Name Role Phone Migration, Doctor Unavailable Unavailable PROBLEMS Type Condition ICD9-CM Code VYH60-[place] Code Onset Dates Condition S tatus SNOMED Code Problem Cough R05 Active 25346483 Problem Benign prostatic hyperplasia with lower urinary tract symptoms, unspecified morphology N40.1 Active 53852 6007 Problem Eustachian tube dysfunction, unspecified laterality H69.80 Active 61138071 Problem Chronic pain G89.29 Active 6212293 1 Problem DM neuro manif type II E11.49 Active 88646310 Problem Diabetes E11.9 Active 59731004 Problem Leukocytosis D72.829 Active 3665782 06 Problem Falling R29.6 Active 245830126 Problem Pressure ulcer of other site, stage 3 L89.893 Active 866489283 Problem 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 Active 843194058 Problem Eye exam abnormal R93.8 Active 16 3047510 Problem Dysuria R30.0 Active 53374715 Problem Hypokalemia E87.6 Active 25774420 Problem Morbid obesity E66.01 Active 87259 6002 Problem Anxiety F41.9 Active 85028800 Problem Diabetic polyneuropathy associated with type 2 d iabetes mellitus E11.42 Active 29662495 Problem Essential hypertension I10 Active 81570796 Problem Bilateral primary osteoarthritis of knee M17.0 Active 344106831 Problem Polyneuropathy associated with underlying disease G63 Active 847324707 Problem Anemia of chronic illness D63.8 Acti ve 185321292 Problem Lymphocytosis D72.820 Active 428063 09 Problem Retinal edema H35.81 Active 671239 6 Problem Chronic lymphocytic leukemia C91.10 A ctive 53868065 Problem Bipolar disorder, in partial remission, most rec ent episode depressed F31.75 Active 18796578 Problem Pure hypercholesterolemia E78.00 Acti ve 550604360 Problem Primary osteoarthritis of right knee M17.11 Active 902063853894811 Problem Bipolar disorder F31.9 Active 137 83159 Problem Bipolar I disorder, most recent episode (or curr ent) mixed, moderate F31.62 Active 77551410 Problem Chronic diastolic (congestive) heart failure I50.3 2 Active 087584371 Problem Reactive airway disease J45.909 Active 818588552852 Problem Insomnia, unspecified type G47.00 Act sharon 656255229 Problem Other chronic pain G89.29 Active 8 7266533 Problem Other iron deficiency anemia D50.8 A ctive 75181264 Problem Mild cognitive impairment G31.84 Acti ve 893471140 Problem Skin cancer C44.90 Active 35799636 7 ALLERGIES No Information ENCOUNTERS Encounter Location Date Diagnosis [facility] [place] [address] [facility] [id number] [address] [place] [address] Mar, [facility] [place] [address] [facility] [id number] [address] [place] [id number] January, [facility] [place] [address] [facility] [id number] [address] [place] [id number] January, [facility] [place] [address] [facility] [id number] [address] [place] [id number] January, [facility] [place] [address] [facility] [id number] [address] [place] [id number] Dec, [facility] [place] [address] [facility] [id number] [address] [place] [id number] Dec, Chronic pain G89.29 and Bipo lar disorder F31.9 [facility] [place] [address] [facility] [id number] [address] [place] [phone] Dec, Edema of both lower extremit ies R60.0 [facility] [place] [address] [facility] [id number] [address] [place] [id number] Dec, Bipolar disorder F31.9 [facility] [place] [address] [facility] [id number] [address] [place] [id number] Dec, Bipolar disorder, in partial remission, most recent episode depressed F31.75 and Mild cognitive impairment G31.84 [facility] [place] [address] [facility] [id number] [address] [place] [phone] Nov, [place] [address] [place] [id number] [address] [place] [id number] Nov, Chronic pain G89.29 [place] [address] [place] [id number] [address] [place] [phone] Nov, Bipolar disorder, in partial remission, most recent episode depressed F31.75 and Mild cognitive impairment G31.84 [place] [id number] [place] [phone] Nov, Bipolar disorder F31.9 [place] [id number] [address] [place] [id number] 04 Nov, 2018 Encounter for Medicare annua [...] unspecified morphology N40.1 and Essential hypertension I10 [place] [address] [place] [id number] [address] [place] [id number] Oct, Chronic pain G89.29 [place] [address] [place] [id number] [address] [place] [phone] Oct, Diabetes E11.9 [place] [address] [facility] [id number] [address] [place] [phone] Oct, Bipolar I disorder, most rec ent episode (or current) mixed, moderate F31.62 and Mild cognitive impairment G31.84 [place] [address] [place] [id number] [address] [place] [phone] Oct, Bipolar I disorder, most rec ent episode (or current) mixed, moderate F31.62 and Mild cognitive impairment G31.84 [place] [address] [facility] [id number] [address] [place] [phone] Sep, Bipolar I disorder, most rec ent episode (or current) mixed, moderate F31.62 and Mild cognitive impairment G31.84 [place] [address] [place] [id number] [address] [place] [phone] Sep, [place] [address] [place] [id number] [address] [place] [address] Sep, Diabetes E11.9 ; Hypoxia R09 .02 ; Hyperglycemia R73.9 ; Therapeutic drug monitoring Z51.81 ; BMI 50.0-59.9, adult Z68.43 and Skin cancer C44.90 [place] [address] [place] [id number] [address] [place] [address] Sep, Chronic pain G89.29 [place] [address] [place] [id number] [address] [place] [id number] Sep, Bipolar I disorder, most rec ent episode (or current) mixed, moderate F31.62 [place] [address] [place] [id number] [address] [place] [phone] Sep, [place] [address] [place] [id number] [address] [place] [id number] Sep, [place] [address] [place] [id number] [address] [place] [id number] Aug, Chronic pain G89.29 [place] [address] [place] [id number] [address] [place] [id number] Aug, Bipolar I disorder, most rec ent episode (or current) mixed, moderate F31.62 [place] [address] [place] [id number] [address] [place] [phone] Aug, Bipolar I disorder, most rec ent episode (or current) mixed, moderate F31.62 and Mild cognitive impairment G31.84 [place] [address] [place] [id number] [address] [place] [phone] Jul, [facility] [place] [address] [id number] [address] [place] [id number] Jul, Chronic pain G89.29 [facility] [place] [address] [id number] [address] [place] [id number] Jul, Bipolar I disorder, most rec ent episode (or current) mixed, moderate F31.62 and Mild cognitive impairment G31.84 [facility] [place] [address] [id number] [address] [place] [id number] Jul, Bipolar I disorder, most rec ent episode (or current) mixed, moderate F31.62 and MCI (mild cognitive impairment) G31.84 [facility] [place] [address] [id number] [address] [place] [id number] Jul, [facility] [place] [address] [id number] [address] [place] [phone] Jul, [facility] [place] [address] [id number] [address] [place] [phone] Jul, Bipolar I disorder, most rec ent episode (or current) mixed, moderate F31.62 [facility] [place] [address] [id number] [address] [place] [id number] Jul, Chronic pain G89.29 [facility] [place] [address] [id number] [address] [place] [id number] Jun, Bipolar I disorder, most rec ent episode (or current) mixed, moderate F31.62 [facility] [place] [address] [id number] [address] [place] [id number] Jun, Pre-procedure lab exam Z01.8 12 [facility] [place] [address] [id number] [address] [place] [phone] Jun, [facility] [address] [id number] [place] [id number] Jun, [facility] [place] [address] [id number] [address] [place] [phone] Jun, [place] [id number] [place] [id number] [address] [place] [address] Jun, Forgetfulness R68.89 ; Pre-s yncope R55 ; Localized edema R60.0 ; Other iron deficiency anemia D50.8 and BMI 50.0-59.9, adult Z68.43 [place] [address] [place] [id number] [address] [place] [phone] Jun, Chronic pain G89.29 [place] [address] [place] [id number] [address] [place] [address] Jun, Chronic pain G89.29 [place] [address] [place] [id number] [place] [phone] Jun, Bipolar I disorder, most rec ent episode (or current) mixed, moderate F31.62 [place] [address] [place] [id number] [address] [place] [address] May, Chronic pain G89.29 [place] [address] [place] [id number] [address] [place] [id number] Apr, [place] [address] [place] [id number] [place] [address] Apr, Chronic pain G89.29 [place] [address] [place] [id number] [address] [place] [id number] Apr, Primary osteoarthritis of ri ght knee M17.11 [place] [address] [place] [id number] [address] [place] [phone] Mar, [place] [address] [place] [id number] [address] [place] [address] Mar, BMI 50.0-59.9, adult Z68.43 and Bipolar disorder, in partial remission, most recent episode depressed F31.75 [place] [address] [place] [id number] [address] [place] [address] Mar, Diabetes E11.9 ; Pure hyperc holesterolemia E78.00 ; Essential hypertension I10 ; Nausea with vomiting, unspecified R11.2 and Headache, unspecified headache type R51 [facility] [place] [address] [facility] [id number] [address] [place] [id number] Mar, Bipolar I disorder, most rec ent episode (or current) mixed, moderate F31.62 [facility] [place] [address] [place] [id number] [address] [place] [id number] Mar, Bipolar I disorder, most rec ent episode (or current) mixed, moderate F31.62 [place] [address] [facility] [id number] [address] [place] [phone] Mar, Chronic pain G89.29 [place] [address] [facility] [id number] [address] [place] [phone] Mar, Bipolar I disorder, most rec ent episode (or current) mixed, moderate F31.62 [place] [address] [place] [id number] [address] [place] [id number] Feb, Bipolar I disorder, most rec ent episode (or current) mixed, moderate F31.62 [place] [address] [facility] [id number] [address] [place] [id number] Feb, Chronic pain G89.29 [facility] [place] [address] [facility] [id number] [address] [place] [id number] Feb, Decubitus ulcer of right josselin t, stage 3 L89.893 and BMI 50.0-59.9, adult Z68.43 [facility] [place] [address] [place] [id number] [address] [place] [id number] Feb, Bipolar I disorder, most rec ent episode (or current) mixed, moderate F31.62 [place] [address] [place] [id number] [address] [place] [id number] Feb, [place] [address] [facility] [id number] [address] [place] [id number] January, [place] [address] [place] [id number] [address] [place] [id number] January, Chronic pain G89.29 [place] [address] [facility] [id number] [address] [place] [id number] January, Bipolar I disorder, most rec ent episode (or current) mixed, moderate F31.62 [place] [address] [facility] [id number] [address] [place] [id number] January, Bipolar I disorder, most rec ent episode (or current) mixed, moderate F31.62 [place] [address] [facility] [id number] [address] [place] [id number] Dec, Bipolar I disorder, most rec ent episode (or current) mixed, moderate F31.62 and BMI 50.0-59.9, adult Z68.43 [place] [address] [facility] [id number] [address] [place] [address] Dec, Bipolar I disorder, most rec ent episode (or current) mixed, moderate F31.62 [place] [address] [place] [id number] [address] [place] [id number] Dec, Chronic pain G89.29 [place] [address] [place] [id number] [address] [place] [address] Dec, DM neuro manif type II E11.4 9 ; Right flank pain R10.9 ; USP 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 Z79.891 ; Encounter for medication monitoring Z51.81 and BMI 50.0-59.9, adult Z68.43 [place] [address] [place] [id number] [address] [place] [id number] Dec, Bipolar I disorder, most rec ent episode (or current) mixed, moderate F31.62 [place] [address] [place] [id number] [address] [place] [id number] Nov, Bipolar I disorder, most rec ent episode (or current) mixed, moderate F31.62 [place] [address] [place] [id number] [address] [place] [address] Nov, Chronic pain G89.29 [facility] [place] [address] [facility] [id number] [address] [place] [address] Nov, Bipolar I disorder, most rec ent episode (or current) mixed, moderate F31.62 [facility] [place] [address] [facility] [id number] [address] [place] [id number] Nov, Hypokalemia E87.6 [facility] [place] [address] [place] [id number] [address] [place] [phone] Nov, Bipolar I disorder, most rec ent episode (or current) mixed, moderate F31.62 [facility] [place] [address] [place] [id number] [address] [place] [address] Oct, Chronic pain G89.29 [facility] [place] [address] [place] [id number] [address] [place] [address] Oct, BMI 50.0-59.9, adult Z68.43 and Bipolar I disorder, most recent episode (or current) mixed, moderate F31.62 [facility] [place] [address] [place] [id number] [address] [place] [address] Oct, Bipolar I disorder, most rec ent episode (or current) mixed, moderate F31.62 [facility] [place] [address] [place] [id number] [address] [place] [address] Oct, [place] [address] [place] [id number] [address] [place] [id number] Oct, Hypokalemia E87.6 [facility] [place] [address] [place] [id number] [address] [place] [phone] Oct, DM neuro manif type II E11.4 9 [facility] [place] [address] [place] [id number] [address] [place] [address] Oct, Bipolar I disorder, most rec ent episode (or current) mixed, moderate F31.62 [place] [address] [place] [id number] [address] [place] [phone] Oct, Bipolar I disorder, most rec ent episode (or current) mixed, moderate F31.62 [place] [address] [address] 14 Oct, 2017 Hyperkalemia E87.5 ; Falling R29.6 ; BMI 50.0-59.9, adult Z68.43 and Acute left ankle pain M25.572 [place] [address] [address] 08 Oct, 2017 DM neuro manif type II E11.4 9 [place] [address] [address] Oct, [place] [address] [address] Sep, Chronic pain G89.29 [place] [address] [address] Sep, [place] [address] [address] Sep, Bilateral primary osteoarthr itis of knee M17.[address] [address] Sep, Generalized edema R60.1 [place] [address] [address] 16 Sep, 2017 Bipolar I disorder, most rec ent episode (or current) mixed, moderate F31.62 [place] [address] [address] 15 Sep, 2017 Hypoxia R09.02 ; Other hyper volemia E87.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 ; Anemia of chronic illness D63.8 and BMI 50.0- 59.9, adult Z68.43 [place] [address] [address] Sep, [facility] [place] [address] [id number] [address] [place] [id number] Sep, Bipolar I disorder, most rec ent episode (or current) mixed, moderate F31.62 [facility] [place] [address] [id number] [address] [place] [address] Aug, Chronic pain G89.29 [facility] [place] [address] [id number] [address] [place] [address] Aug, Generalized edema R60.1 [facility] [place] [address] [id number] [address] [place] [phone] Aug, [facility] [place] [address] [id number] [address] [place] [id number] Aug, [facility] [place] [address] [id number] [address] [place] [address] Aug, Bipolar I disorder, most rec ent episode (or current) mixed, moderate F31.62 [facility] [place] [address] [id number] [address] [place] [id number] 07 Aug, 2017 Bipolar I disorder, most rec ent episode (or current) mixed, moderate F31.62 [facility] [place] [address] [id number] [address] [place] [id number] 04 Aug, 2017 Chronic pain G89.29 [facility] [place] [address] [id number] [address] [place] [id number] Jul, Bipolar I disorder, most rec ent episode (or current) mixed, moderate F31.62 [facility] [place] [address] [id number] [address] [place] [id number] Jul, Bipolar I disorder, most rec ent episode (or current) mixed, moderate F31.62 and BMI 60.0-69.9, adult Z68.44 [facility] [place] [address] [id number] [address] [place] [id number] 16 Jul, 2017 Bipolar I disorder, most rec ent episode (or current) mixed, moderate F31.62 [facility] [place] [address] [facility] [id number] [address] [place] [address] Jul, Chronic pain G89.29 [facility] [place] [address] [facility] [id number] [address] [place] [phone] Jul, Bipolar I disorder, most rec ent episode (or current) mixed, moderate F31.62 [facility] [place] [address] [facility] [id number] [address] [place] [id number] Jun, Polyneuropathy associated wi th underlying disease G63 and Diabetes E11.9 [facility] [place] [address] [facility] [id number] [address] [place] [id number] Jun, Bipolar I disorder, most rec ent episode (or current) mixed, moderate F31.62 [facility] [place] [address] [facility] [id number] [address] [place] [phone] Jun, Chronic pain G89.29 [facility] [place] [address] [facility] [id number] [address] [place] [phone] May, Bipolar I disorder, most rec ent episode (or current) mixed, moderate F31.62 [facility] [place] [address] [facility] [id number] [address] [place] [phone] May, Bipolar I disorder, most rec ent episode (or current) mixed, moderate F31.62 [facility] [place] [address] [facility] [id number] [address] [place] [phone] 20 May, 2017 Diabetic polyneuropathy asso ciated with type 2 diabetes mellitus E11.42 [facility] [place] [address] [id number] [address] [place] [phone] 18 May, 2017 Bipolar I disorder, most rec ent episode (or current) mixed, moderate F31.62 [facility] [place] [address] [facility] [id number] [address] [place] [phone] 13 May, 2017 Bipolar I disorder, most rec ent episode (or current) mixed, moderate F31.62 [facility] [place] [address] [id number] [address] [place] [phone] May, Chronic pain G89.29 [facility] [place] [address] [id number] [address] [place] [id number] Apr, Bipolar I disorder, most rec ent episode (or current) mixed, moderate F31.62 [facility] [place] [address] [id number] [address] [place] [phone] Apr, [facility] [place] [address] [id number] [address] [place] [phone] Apr, Chronic pain G89.29 and DM n euro manif type II E11.49 [facility] [place] [address] [id number] [address] [place] [phone] Apr, [facility] [place] [address] [id number] [address] [place] [phone] Apr, Bipolar I disorder, most rec ent episode (or current) mixed, moderate F31.62 [facility] [place] [address] [facility] [id number] [address] [place] [phone] Apr, Chronic pain G89.29 [facility] [place] [address] [facility] [id number] [address] [place] [phone] Apr, Iliotibial band syndrome, le ft M76.32 [facility] [place] [address] [facility] [id number] [address] [place] [phone] Apr, Bipolar I disorder, most rec ent episode (or current) mixed, moderate F31.62 [facility] [place] [address] [facility] [id number] [address] [place] [id number] Mar, Bipolar I disorder, most rec ent episode (or current) mixed, moderate F31.62 [facility] [place] [address] [facility] [id number] [address] [place] [id number] Mar, Bipolar I disorder, most rec ent episode (or current) mixed, moderate F31.62 [facility] [place] [address] [place] [id number] [address] [place] [phone] Mar, [facility] [place] [address] [id number] [address] [place] [id number] Mar, Bipolar I disorder, most rec ent episode (or current) mixed, moderate F31.62 [facility] [place] [address] [id number] [address] [place] [phone] Mar, Chronic pain G89.29 [facility] [place] [address] [id number] [address] [place] [id number] Mar, Bipolar I disorder, most rec ent episode (or current) mixed, moderate F31.62 [facility] [place] [address] [id number] [address] [place] [id number] Mar, Bipolar I disorder, most rec ent episode (or current) mixed, moderate F31.62 [facility] [place] [address] [facility] [id number] [address] [place] [id number] Mar, Acute pain of left knee M25. 562 ; Left hip pain M25.552 ; Generalized edema R60.1 and Tongue swelling R22.0 [facility] [place] [address] [id number] [address] [place] [phone] Mar, [facility] [place] [address] [facility] [id number] [address] [place] [phone] Feb, Chronic pain G89.29 [facility] [place] [address] [facility] [id number] [address] [place] [phone] Feb, Diabetes E11.9 [facility] [place] [address] [id number] [address] [place] [id number] January, Chronic pain G89.29 [facility] [place] [address] [id number] [address] [place] [phone] January, [facility] [place] [address] [facility] [id number] [address] [place] [id number] January, Bipolar I disorder, most rec ent episode (or current) mixed, moderate F31.62 [facility] [place] [address] [id number] [address] [place] [id number] Dec, Bipolar I disorder, most rec ent episode (or current) mixed, moderate F31.62 [facility] [place] [address] [id number] [address] [place] [phone] Dec, Chronic pain G89.29 [facility] [place] [address] [facility] [id number] [address] [place] [phone] Dec, Bipolar I disorder, most rec ent episode (or current) mixed, moderate F31.62 [facility] [place] [address] [facility] [id number] [address] [place] [id number] Dec, Diabetes E11.9 ; Essential h ypertension I10 ; Chronic pain G89.29 and Morbid obesity E66.01 [facility] [place] [address] [facility] [id number] [address] [place] [phone] Dec, [facility] [place] [address] [facility] [id number] [address] [place] [id number] Dec, Bipolar I disorder, most rec ent episode (or current) mixed, moderate F31.62 [facility] [place] [address] [facility] [id number] [address] [place] [id number] Dec, Bipolar I disorder, most rec ent episode (or current) mixed, moderate F31.62 [facility] [place] [address] [facility] [id number] [address] [place] [id number] Nov, Chronic pain G89.29 [facility] [place] [address] [id number] [address] [place] [phone] Nov, Bipolar I disorder, most rec ent episode (or current) mixed, moderate F31.62 [facility] [place] [address] [facility] [id number] [address] [place] [phone] Nov, [facility] [place] [address] [facility] [id number] [address] [place] [id number] Nov, Bipolar I disorder, most rec ent episode (or current) mixed, moderate F31.62 [facility] [place] [address] [facility] [id number] [address] [place] [id number] Nov, Bipolar I disorder, most rec ent episode (or current) mixed, moderate F31.62 [facility] [place] [address] [facility] [id number] [address] [place] [phone] Nov, [facility] [place] [address] [place] [id number] [address] [place] [id number] Nov, [facility] [place] [address] [facility] [id number] [address] [place] [phone] Nov, [facility] [place] [address] [facility] [id number] [address] [place] [id number] Oct, Chronic pain G89.29 [facility] [place] [address] [place] [id number] [address] [place] [phone] Oct, Bipolar I disorder, most rec ent episode (or current) mixed, moderate F31.62 [facility] [place] [address] [place] [id number] [address] [place] [phone] Oct, [facility] [place] [address] 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 [id number] [address] [place] [phone] Oct, [facility] [place] [address] [facility] [id number] [address] [place] [phone] Oct, Diabetes E11.9 [facility] [place] [address] [facility] [id number] [address] [place] [phone] Oct, Bipolar I disorder, most rec ent episode (or current) mixed, moderate F31.62 [facility] [place] [address] [facility] [id number] [address] [place] [id number] Sep, Chronic pain G89.29 [facility] [place] [address] [facility] [id number] [address] [place] [phone] Sep, Chronic pain G89.29 [facility] [place] [address] [facility] [id number] [address] [place] [id number] Aug, Chronic pain G89.29 [facility] [place] [address] [facility] [id number] [address] [place] [phone] Jul, [facility] [place] [address] [facility] [id number] [address] [place] [id number] Jul, Diabetes E11.9 [facility] [place] [address] [facility] [id number] [address] [place] [phone] Jul, Chronic pain G89.29 [facility] [place] [address] [facility] [id number] [address] [place] [phone] Jul, Bipolar I disorder, most rec ent episode (or current) mixed, moderate F31.62 [facility] [place] [address] [place] [id number] [address] [place] [id number] Jun, Bipolar I disorder, most rec ent episode (or current) mixed, moderate F31.62 [facility] [place] [address] [facility] [id number] [address] [place] [phone] Jun, [facility] [place] [address] [place] [id number] [address] [place] [id number] Jun, Bipolar I disorder, most rec ent episode (or current) mixed, moderate F31.62 [facility] [place] [address] [facility] [id number] [address] [place] [phone] 30 May, 2016 Insomnia, unspecified type G 47.00 [facility] [place] [address] [facility] [id number] [address] [place] [phone] 22 May, 2016 Bipolar I disorder, most rec ent episode (or current) mixed, moderate F31.62 [facility] [place] [address] [facility] [id number] [address] [place] [id number] 14 May, 2016 [facility] [place] [address] [place] [id number] [address] [place] [id number] May, Bipolar I disorder, most rec ent episode (or current) mixed, moderate F31.62 [facility] [place] [address] [facility] [id number] [address] [place] [phone] May, Diabetes E11.9 and Essential hypertension I10 [facility] [place] [address] [facility] [id number] [address] [place] [id number] Apr, Chronic pain G89.29 [facility] [place] [address] [facility] [id number] [address] [place] [phone] Apr, Bipolar I disorder, most rec ent episode (or current) mixed, moderate F31.62 [place] [address] [facility] [id number] [address] [place] [phone] Apr, [place] [address] [place] [id number] [address] [place] [id number] Apr, [place] [address] [facility] [id number] [address] [place] [id number] Mar, Chronic pain G89.29 ; Headac he, unspecified headache type R51 ; Neuropathy G62.9 ; Pain of right hip joint M25.551 and Essential hypertension I10 [place] [address] [facility] [id number] [address] [place] [id number] Mar, Chronic pain G89.29 [place] [address] [facility] [id number] [address] [place] [id number] Mar, Bipolar I disorder, most rec ent episode (or current) mixed, moderate F31.62 [place] [id number] [facility] [id number] [address] [place] [phone] Feb, Bipolar I disorder, most rec ent episode (or current) mixed, moderate F31.62 and Insomnia, unspecified type G47.00 [facility] [place] [address] [id number] [address] [place] [id number] Feb, Chronic pain G89.29 [facility] [place] [address] [facility] [id number] [address] [place] [phone] Feb, Bipolar I disorder, most rec ent episode (or current) mixed, moderate F31.62 [facility] [place] [address] [id number] [address] [place] [phone] January, Bipolar I disorder, most rec ent episode (or current) mixed, moderate F31.62 [facility] [place] [address] [id number] [address] [place] [id number] January, Chronic pain G89.29 [facility] [place] [address] [id number] [address] [place] [id number] January, Chronic pain G89.29 and Esse ntial hypertension I10 [facility] [place] [address] [id number] [address] [place] [id number] January, Bipolar I disorder, most rec ent episode (or current) mixed, moderate F31.62 [facility] [place] [address] [id number] [address] [place] [phone] Dec, [facility] [place] [address] [id number] [address] [place] [phone] Dec, [facility] [place] [address] [id number] [address] [place] [id number] Dec, [facility] [place] [address] [id number] [address] [place] [id number] Dec, [facility] [place] [address] [id number] [address] [place] [id number] Nov, Reactive airway disease J45. 909 [facility] [place] [address] [id number] [address] [place] [phone] Nov, [facility] [place] [address] [id number] [address] [place] [phone] Nov, [facility] [place] [address] [id number] [address] [place] [phone] Nov, [facility] [place] [address] [id number] [address] [place] [phone] Nov, [place] [address] [id number] Nov, Onychomycosis B35.1 ; Hammer toe M20.40 ; [place] or callus L84 and DM neuro manif type II E11.49 [place] [address] [id number] Nov, Chronic pain G89.29 ; Leukoc ytosis D72.829 and Diabetes E11.9 [place] [address] [id number] Nov, [place] [address] [address] Oct, Bronchitis J40 [place] [address] [id number] Oct, [place] [address] [address] Oct, [place] [address] [id number] Oct, Mastoiditis, unspecified lat erality H70.90 and Type 2 diabetes mellitus with complication E11.8 [place] [address] [id number] Sep, [place] [address] [address] Sep, Dysuria R30.0 ; Cough R05 ; Benign prostatic hyperplasia with lower urinary tract symptoms, unspecified morphology N40.1 ; Hypokalemia E87.6 and Eustachian tube dysfunction, unspecified laterality H69.[address] [address] Sep, Moderate mixed bipolar I dis order F31.[address] [id number] Sep, Hypokalemia E87.6 [facility] [address] [id number] [address] [place] [id number] Sep, [facility] [address] [facility] [id number] [address] [place] [id number] Sep, Upper respiratory tract infe ction, unspecified type J06.9 [facility] [place] [address] [id number] [address] [place] [id number] Aug, [facility] [address] [id number] [address] [place] [id number] Aug, Dysuria R30.0 [facility] [place] [address] [id number] [address] [place] [phone] Aug, [facility] [address] [id number] [address] [place] [phone] Jul, [facility] [address] [id number] [address] [place] [id number] Jul, [facility] [address] [id number] [address] [place] [phone] Jul, [facility] [address] [facility] [id number] [address] [place] [phone] Jul, [facility] [address] [id number] [address] [place] [id number] Jun, [facility] [address] [id number] [address] [place] [phone] Jun, [facility] [address] [id number] [address] [place] [phone] Jun, [facility] [address] [id number] [address] [place] [id number] May, [facility] [address] [facility] [id number] [address] [place] [phone] May, Bipolar I disorder, most rec ent episode (or current) mixed, moderate 296.62 [facility] [place] [address] [facility] [id number] [address] [place] [id number] May, [facility] [place] [address] [facility] [id number] [address] [place] [id number] May, Bipolar I disorder, most rec ent episode (or current) mixed, moderate 296.62 and Major depressive disorder, recurrent episode, severe, specified as with psychotic behavior 296.34 [facility] [place] [address] [facility] [id number] [address] [place] [id number] May, Bipolar I disorder, most rec ent episode (or current) mixed, moderate 296.62 [facility] [place] [address] [facility] [id number] [address] [place] [phone] May, [facility] [place] [address] [place] [id number] [address] [place] [id number] Apr, [facility] [place] [address] [facility] [id number] [address] [place] [phone] Apr, [facility] [place] [address] [place] [id number] [address] [place] [phone] Apr, Unspecified disorder of kidn ey and ureter 593.9 and Diabetes mellitus type 2, uncontrolled 250.02 [facility] [place] [address] [place] [id number] [address] [place] [phone] Apr, [facility] [place] [address] [facility] [id number] [address] [place] [phone] Apr, [facility] [place] [address] [facility] [id number] [address] [place] [phone] Apr, [facility] [place] [address] [facility] [id number] [address] [place] [phone] Apr, [facility] [place] [address] [facility] [id number] [address] [place] [phone] Apr, Diabetes mellitus type II, u ncontrolled 250.02 [facility] [place] [address] [place] [id number] [address] [place] [phone] Apr, [facility] [place] [address] [facility] [id number] [address] [place] [phone] Mar, [facility] [place] [address] [place] [id number] [address] [place] [phone] Mar, [facility] [place] [address] [place] [id number] [address] [place] [phone] Mar, [facility] [place] [address] [place] [id number] [address] [place] [phone] Mar, Major depressive disorder, r ecurrent episode, severe, specified as with psychotic behavior 296.34 and Bipolar I disorder, most recent episode (or current) mixed, moderate 296.62 [facility] [place] [address] [place] [id number] [address] [place] [phone] Mar, Diabetes 250.00 ; Anuria 788 .5 ; Nausea and vomiting 787.01 and Diarrhea 787.91 [facility] [place] [address] [place] [id number] [address] [place] [phone] Mar, Diabetes 250.00 [facility] [place] [address] [place] [id number] [address] [place] [phone] Mar, [facility] [place] [address] [place] [id number] [address] [place] [phone] Mar, Diabetes 250.00 [facility] [place] [address] [place] [id number] [address] [place] [phone] Mar, [facility] [place] [address] [place] [id number] [address] [place] [phone] Mar, [facility] [place] [address] [place] [id number] [address] [place] [phone] Mar, [facility] [place] [address] [place] [id number] [address] [place] [phone] Mar, [facility] [place] [address] [place] [id number] [address] [place] [phone] Mar, Bipolar I disorder, most rec ent episode (or current) mixed, moderate 296.62 and Major depressive disorder, recurrent episode, severe, specified as with psychotic behavior 296.[address] [phone] Mar, Magnesium deficiency 275.2 ; Hypokalemia 276.8 ; Nausea & vomiting 787.01 and Diabetes mellitus type 2, uncontrolled 250.[address] [address] Feb, [address] [address] Feb, Bipolar I disorder, most rec ent episode (or current) mixed, moderate 296.[address] [address] Feb, Nausea and vomiting 787.01 ; Left elbow pain 719.42 ; Anuria 788.5 and Diabetes 250.[address] [address] Feb, [address] [address] Feb, Hypopotassemia 276.8 and Hyp okalemia 276.[address] [address] Feb, Hypopotassemia 276.8 and Hyp okalemia 276.[address] [address] Feb, Seborrheic keratoses 702.[address] [address] Feb, Hypopotassemia 276.8 and Low magnesium levels 275.[address] [address] January, [address] [address] January, [facility] [place] [address] [id number] [address] [place] [address] January, [facility] [place] [address] [id number] [address] [place] [address] January, Scalp lesion 709.9 [facility] [place] [address] [id number] [address] [place] [address] January, [facility] [place] [address] [id number] [address] [place] [address] Dec, Tear of medial cartilage or meniscus of knee, current 836.0 and 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 [facility] [place] [address] [id number] [address] [place] [address] Dec, [facility] [place] [address] [id number] [address] [place] [address] Dec, [facility] [place] [address] [id number] [address] [place] [address] Dec, Squamous cell carcinoma, 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 [facility] [place] [address] [id number] [address] [place] [address] Dec, [facility] [place] [address] [id number] [address] [place] [address] Dec, [facility] [place] [address] [id number] [address] [place] [address] Nov, [facility] [place] [address] [id number] [address] [place] [address] Nov, [facility] [address] [id number] [address] [place] [address] Nov, [facility] [place] [address] [id number] [address] [place] [address] Nov, [facility] [place] [address] [id number] [address] [place] [address] Nov, [facility] [address] [id number] [address] [place] [address], [place] [address] Nov, [facility] [address] [id number] [address] [place] [address], [place] [address] Nov, 2014 [facility] [address] [id number] [address] [place] [address], [place] [address] Nov, 2014 [facility] [address] [id number] [address] [place] [address], [place] [address] Nov, 2014 [facility] [address] [id number] [address] [place] [address], [place] [address] Nov, [facility] [address] [id number] [address] [place] [address], [place] [address] Nov, [facility] [address] [id number] [address] [place] [address], [place] [address] Nov, [facility] [address] [id number] [address] [place] [address] Oct, 2014 [facility] [address] [id number] [address] [place] [address], [place] [address] Oct, 2014 [facility] [address] [id number] [address] [place] [address] Oct, 2014 [facility] [address] [id number] [address] [place] [address] Oct, 2014 [facility] [address] [id number] [address] [place] [address] Oct, 2014 [facility] [address] [id number] [address] [place] [address], [place] [address] Oct, 2014 [facility] [address] [id number] [address] [place] [address] Oct, 2014 [facility] [address] [id number] [address] [place] [address] Oct, 2014 [facility] [address] [id number] [address] [place] [address], [place] [address] Oct, [facility] [address] [id number] [address] [place] [address], [place] [address] Sep, [facility] [address] [id number] [address] [place] [address], [place] [address] Sep, [facility] [address] [id number] [address] [place] [address], [place] [address] Sep, [facility] [address] [id number] [address] [place] [address], [place] [address] Sep, [facility] [address] [id number] [address] [place] [address], [place] [address] Sep, [facility] [address] [id number] [address] [place] [address], [place] [address] Sep, [facility] [address] [id number] [address] [place] [address], [place] [address] Sep, [facility] [address] [id number] [address] [place] [address], [place] [address] Sep, [facility] [address] [id number] [address] [place] [address], [place] [address] Sep, [facility] [address] [id number] [address] [place] [address], [place] [address] Sep, [facility] [address] [id number] [address] [place] [address], [place] [address] Sep, [facility] [address] [id number] [address] [place] [address], [place] [address] Sep, [facility] [address] [id number] [address] [place] [address], [place] [address] Sep, [facility] [address] [id number] [address] [place] [address], [place] [address] Sep, [facility] [address] [id number] [address] [place] [address], [place] [address] Sep, [facility] [address] [id number] [address] [place] [address], [place] [address] Sep, [facility] [address] [id number] [address] [place] [address], [place] [address] Aug, [facility] [address] [id number] [address] [place] [address], [place] [address] Aug, [facility] [address] [id number] [address] [place] [address], [place] [address] Aug, [facility] [address] [id number] [address] [place] [address], [place] [address] Aug, [facility] [address] [id number] [address] [place] [address], [place] [address] Aug, [facility] [address] [id number] [address] [place] [address], [place] [address] Aug, [facility] [address] [id number] [address] [place] [address], [place] [address] Aug, [facility] [address] [id number] [address] [place] [address], [place] [address] Aug, [facility] [address] [id number] [address] [place] [address], [place] [address] Aug, [facility] [address] [id number] [address] [place] [address], [place] [address] Aug, [facility] [address] [id number] [address] [place] [address], [place] [address] Aug, [facility] [address] [place] [id number] Aug, [facility] [address] [id number] [address] [place] [address], [place] [address] Aug, [facility] [address] [id number] [address] [place] [address], [place] [address] Aug, [facility] [address] [id number] [address] [place] [address], [place] [address] Aug, [facility] [address] [id number] [address] [place] [address], [place] [address] Aug, [facility] [address] [id number] [address] [place] [address], [place] [address] Aug, [facility] [address] [id number] [address] [place] [address], [place] [address] Aug, [facility] [address] [id number] [address] [place] [address], [place] [address] Aug, [facility] [address] [id number] [address] [place] [address], [place] [address] Aug, [facility] [address] [id number] [address] [place] [address], [place] [address] Aug, [facility] [address] [id number] [address] [place] [address], [place] [address] Aug, [facility] [address] [id number] [address] [place] [address], [place] [address] Aug, [facility] [address] [id number] [address] [place] [address], [place] [address] Aug, [facility] [address] [id number] [address] [place] [address], [place] [address] Aug, [facility] [address] [id number] [address] [place] [address], [place] [address] Aug, [facility] [address] [id number] [address] [place] [address], [place] [address] Aug, [facility] [address] [id number] [address] [place] [address], [place] [address] Aug, [facility] [address] [id number] [address] [place] [address], [place] [address] Aug, [facility] [address] [id number] [address] [place] [address], [place] [address] Aug, [facility] [address] [id number] [address] [place] [address], [place] [address] Jul, [facility] [address] [id number] [address] [place] [address], [place] [address] Jul, [facility] [address] [id number] [address] [place] [address], [place] [address] Jul, [facility] [address] [id number] [address] [place] [address], [place] [address] Jul, [facility] [address] [id number] [address] [place] [address], [place] [address] Jul, [facility] [address] [id number] [address] [place] [address], [place] [address] Jul, [facility] [address] [id number] [address] [place] [address], [place] [address] Jul, [facility] [address] [id number] [address] [place] [address], [place] [address] Jul, [facility] [address] [id number] [address] [place] [address], [place] [address] Jul, [facility] [address] [id number] [address] [place] [address], [place] [address] Jul, [facility] [address] [id number] [address] [place] [address], [place] [address] Jun, [facility] [address] [id number] [address] [place] [address], [place] [address] Jun, [facility] [address] [id number] [address] [place] [address], [place] [address] Jun, [facility] [address] [id number] [address] [place] [address], [place] [address] 16 Jun, 2014 [facility] [address] [id number] [address] [place] [address], [place] [address] 15 Jun, 2014 [facility] [address] [id number] [address] [place] [address], [place] [address] 15 Jun, 2014 [facility] [address] [id number] [address] [place] [address], [place] [address] 05 Jun, 2014 [facility] [address] [id number] [address] [place] [address], [place] [address] Jun, [facility] [address] [id number] [address] [place] [address], [place] [address] Jun, [facility] [address] [id number] [address] [place] [address], [place] [address] Jun, [facility] [address] [id number] [address] [place] [address], [place] [address] 29 May, 2014 [facility] [address] [id number] [address] [place] [address], [place] [address] 29 May, 2013 [facility] [address] [id number] [address] [place] [address], [place] [address] 26 May, 2013 [facility] [address] [id number] [address] [place] [address], [place] [address] 26 May, 2013 [facility] [address] [id number] [address] [place] [address], [place] [address] 17 May, 2013 [facility] [address] [id number] [address] [place] [address], [place] [address] 17 May, 2013 [facility] [address] [id number] [address] [place] [address], [place] [address] 15 May, 2013 [facility] [address] [id number] [address] [place] [address] 15 May, 2013 [facility] [address] [id number] [address] [place] [address], [place] [address] 15 May, 2013 [facility] [address] [id number] [address] [place] [address], [place] [address] 15 May, 2013 [facility] [address] [id number] [address] [place] [address], [place] [address] 10 May, 2013 [facility] [address] [id number] [address] [place] [address], [place] [address] May, [facility] [address] [id number] [address] [place] [address], [place] [address] May, [facility] [address] [id number] [address] [place] [address], [place] [address] May, [facility] [address] [id number] [address] [place] [address], [place] [address] May, [facility] [address] [id number] [address] [place] [address], [place] [address] May, [facility] [address] [id number] [address] [place] [address], [place] [address] Apr, [facility] [address] [id number] [address] [place] [address], [place] [address] Apr, [facility] [address] [id number] [address] [place] [address], [place] [address] Apr, [facility] [address] [id number] [address] [place] [address], [place] [address] Apr, [facility] [address] [id number] [address] [place] [address], [place] [address] Apr, [facility] [address] [id number] [address] [place] [address], [place] [address] Apr, [facility] [address] [id number] [address] [place] [address], [place] [address] Apr, [facility] [address] [id number] [address] [place] [address], [place] [address] Apr, [facility] [address] [id number] [address] [place] [address], [place] [address] Apr, [facility] [address] [id number] [address] [place] [address], [place] [address] Apr, [facility] [address] [id number] [address] [place] [address], [place] [address] Apr, [facility] [address] [id number] [facility] [place] [address] Apr, [facility] [address] [id number] [facility] [place] [address] Apr, [facility] [address] [id number] [facility] [place] [address] Apr, [facility] [address] [id number] [facility] [place] [address] Apr, [facility] [address] [id number] [facility] [place] [address] Mar, [facility] [address] [id number] [facility] [place] [address] Mar, [facility] [address] [id number] [address] [place] [address], [place] [address] Mar, [facility] [address] [id number] [address] [place] [address], [place] [address] Mar, [facility] [address] [id number] [address] [place] [address], [place] [address] Mar, [facility] [address] [id number] [address] [place] [address], [place] [address] Mar, [facility] [address] [id number] [address] [place] [address], [place] [address] Mar, [facility] [address] [id number] [address] [place] [address], [place] [address] Mar, [facility] [address] [id number] [address] [place] [address], [place] [address] Mar, [facility] [address] [id number] [address] [place] [address], [place] [address] Mar, [facility] [address] [id number] [address] [place] [address], [place] [address] Mar, [facility] [address] [id number] [address] [place] [address], [place] [address] Mar, 2013 [facility] [address] [id number] [facility] [place] [address] Mar, 2013 [facility] [address] [id number] [facility] [place] [address] Mar, 2013 [facility] [address] [id number] [facility] [place] [address] Mar, 2013 [facility] [address] [id number] [address] [place] [address], [place] [address] Mar, 2013 [facility] [address] [id number] [address] [place] [address], [place] [address] Mar, [facility] [address] [id number] [address] [place] [address], [place] [address] Mar, [facility] [address] [id number] [address] [place] [address], [place] [address] Feb, [facility] [address] [id number] [address] [place] [address], [place] [address] Feb, [facility] [address] [id number] [address] [place] [address], [place] [address] Feb, [facility] [address] [id number] [address] [place] [address], [place] [address] Feb, [facility] [address] [id number] [address] [place] [address], [place] [address] Feb, [facility] [address] [id number] [address] [place] [address], [place] [address] Feb, [facility] [address] [id number] [address] [place] [address], [place] [address] Feb, [facility] [address] [id number] [address] [place] [address], [place] [address] Feb, [facility] [address] [id number] [address] [place] [address], [place] [address] Feb, [facility] [address] [id number] [facility] [place] [address] Feb, [facility] [address] [id number] [address] [place] [address], [place] [address] Feb, [facility] [address] [id number] [facility] [place] [address] Feb, [facility] [address] [id number] [address] [place] [address], [place] [address] Feb, [facility] [address] [id number] [address] [place] [address], [place] [address] Feb, [facility] [address] [id number] [address] [place] [address], [place] [address] January, [facility] [address] [id number] [address] [place] [address], [place] [address] January, [facility] [address] [id number] [address] [place] [address], [place] [address] January, [facility] [address] [id number] [address] [place] [address], [place] [address] January, [facility] [address] [id number] [address] [place] [address], [place] [address] January, [facility] [address] [id number] [address] [place] [address], [place] [address] January, [facility] [address] [id number] [address] [place] [address], [place] [address] January, [facility] [address] [id number] [address] [place] [address], [place] [address] January, [facility] [address] [id number] [address] [place] [address], [place] [address] January, [facility] [address] [id number] [address] [place] [address], [place] [address] January, [facility] [address] [id number] [address] [place] [address], [place] [address] January, [facility] [address] [id number] [facility] [place] [address] January, [facility] [address] [id number] [address] [place] [address], [place] [address] January, [facility] [address] [id number] [address] [place] [address], [place] [address] January, [facility] [address] [id number] [address] [place] [address], [place] [address] Dec, [facility] [address] [id number] [address] [place] [address], [place] [address] Dec, [facility] [address] [id number] [address] [place] [address], [place] [address] Dec, [facility] [address] [id number] [address] [place] [address], [place] [address] Dec, [facility] [address] [id number] [address] [place] [address], [place] [address] Dec, [facility] [address] [id number] [address] [place] [address], [place] [address] Dec, [facility] [address] [id number] [address] [place] [address], [place] [address] Dec, [facility] [address] [id number] [address] [place] [address], [place] [address] Dec, [facility] [address] [id number] [address] [place] [address], [place] [address] Dec, [facility] [address] [id number] [address] [place] [address], [place] [address] Dec, [facility] [address] [id number] [address] [place] [address], [place] [address] Nov, [facility] [address] [id number] [address] [place] [address], [place] [address] Nov, [facility] [address] [id number] [address] [place] [address], [place] [address] Nov, [facility] [address] [id number] [address] [place] [address], [place] [address] Nov, [facility] [address] [id number] [address] [place] [address], [place] [address] Nov, [facility] [address] [id number] [address] [place] [address], [place] [address] Nov, [facility] [address] [id number] [address] [place] [address], [place] [address] Nov, [facility] [address] [id number] [address] [place] [address], [place] [address] Nov, [facility] [address] [id number] [address] [place] [address], [place] [address] Nov, [facility] [address] [id number] [address] [place] [address], [place] [address] Nov, [facility] [address] [id number] [address] [place] [address], [place] [address] Oct, [facility] [address] [id number] [address] [place] [address], [place] [address] Oct, [facility] [address] [id number] [address] [place] [address], [place] [address] Oct, [facility] [address] [id number] [address] [place] [address], [place] [address] Oct, [facility] [address] [id number] [address] [place] [address], [place] [address] Oct, [facility] [address] [id number] [address] [place] [address], [place] [address] Oct, [facility] [address] [id number] [address] [place] [address], [place] [address] 14 Oct, 2013 [facility] [address] [id number] [address] [place] [address] [address] Oct, [facility] [address] [id number] [address] [place] [address], [place] [address] Oct, [facility] [address] [id number] [address] [place] [address], [place] [address] Oct, [facility] [address] [id number] [address] [place] [address], [place] [address] Oct, [facility] [address] [id number] [address] [place] [address], [place] [address] Oct, [facility] [address] [id number] [address] [place] [address], [place] [address] Oct, [facility] [address] [id number] [address] [place] [address], [place] [address] Oct, [facility] [address] [id number] [address] [place] [address], [place] [address] Sep, [facility] [address] [id number] [address] [place] [address], [place] [address] Sep, [facility] [address] [id number] [address] [place] [address], [place] [address] Sep, [facility] [address] [id number] [address] [place] [address], [place] [address] Sep, [facility] [address] [id number] [address] [place] [address], [place] [address] Sep, [facility] [address] [id number] [address] [place] [address], [place] [address] Sep, [facility] [address] [id number] [address] [place] [address], [place] [address] Sep, [facility] [address] [id number] [address] [place] [address], [place] [address] Sep, [facility] [address] [id number] [address] [place] [address], [place] [address] Sep, [facility] [address] [id number] [address] [place] [address], [place] [address] 08 Sep, 2013 [facility] [address] [id number] [address] [place] [address], [place] [address] 10 Aug, 2013 [facility] [address] [id number] [address] [place] [address], [place] [address] Aug, [facility] [address] [id number] [address] [place] [address], [place] [address] Jul, [facility] [address] [id number] [address] [place] [address], [place] [address] Jul, [facility] [address] [id number] [address] [place] [address], [place] [address] Jul, [facility] [address] [id number] [address] [place] [address], [place] [address] Jul, [facility] [address] [id number] [address] [place] [address], [place] [address] Jul, [facility] [address] [id number] [address] [place] [address], [place] [address] Jul, [facility] [address] [id number] [address] [place] [address], [place] [address] Jul, [facility] [address] [id number] [address] [place] [address], [place] [address] Jul, [facility] [address] [id number] [address] [place] [address], [place] [address] Jul, [facility] [address] [id number] [address] [place] [address], [place] [address] Jul, [facility] [address] [id number] [address] [place] [address], [place] [address] Jul, [facility] [address] [id number] [address] [place] [address], [place] [address] Jul, [facility] [address] [id number] [address] [place] [address], [place] [address] Jul, [facility] [address] [id number] [address] [place] [address], [place] [address] 05 Jul, 2012 [facility] [address] [id number] [address] [place] [address], [place] [address] Jul, 2012 [facility] [address] [id number] [address] [place] [address], [place] [address] Jul, 2012 [facility] [address] [id number] [address] [place] [address], [place] [address] Jul, 2012 [facility] [address] [id number] [address] [place] [address], [place] [address] Jul, 2012 [facility] [address] [id number] [address] [place] [address], [place] [address] Jul, [facility] [address] [id number] [address] [place] [address], [place] [address] Jun, 2012 [facility] [address] [id number] [address] [place] [address], [place] [address] 16 Jun, 2012 [facility] [address] [id number] [address] [place] [address], [place] [address] 16 Jun, 2012 [facility] [address] [id number] [address] [place] [address], [place] [address] 16 Jun, 2012 [facility] [address] [id number] [address] [place] [address], [place] [address] 16 Jun, 2012 [facility] [address] [id number] [address] [place] [address], [place] [address] 16 Jun, 2012 [facility] [address] [id number] [address] [place] [address], [place] [address] 10 Jun, 2013 [facility] [address] [id number] [address] [place] [address], [place] [address] 10 Jun, 2012 [facility] [address] [id number] [address] [place] [address] 09 Jun, 2012 [facility] [address] [id number] [address] [place] [address] Jun, [facility] [address] [id number] [address] [place] [address], [place] [address] Jun, [facility] [address] [id number] [address] [place] [address], [place] [address] May, [facility] [address] [id number] [address] [place] [address], [place] [address] May, [facility] [address] [id number] [address] [place] [address], [place] [address] May, 2012 [facility] [address] [id number] [address] [place] [address], [place] [address] 17 May, 2013 [facility] [address] [id number] [address] [place] [address], [place] [address] May, [facility] [address] [id number] [address] [place] [address], [place] [address] May, [facility] [address] [id number] [address] [place] [address], [place] [address] May, [facility] [address] [id number] [address] [place] [address], [place] [address] May, [facility] [address] [id number] [address] [place] [address], [place] [address] Apr, [facility] [address] [id number] [address] [place] [address], [place] [address] Apr, [facility] [address] [id number] [address] [place] [address], [place] [address] Apr, [facility] [address] [id number] [address] [place] [address], [place] [address] Apr, [facility] [address] [id number] [address] [place] [address], [place] [address] Apr, [facility] [address] [id number] [address] [place] [address], [place] [address] Mar, [facility] [address] [id number] [address] [place] [address], [place] [address] Mar, [facility] [address] [id number] [address] [place] [address], [place] [address] Mar, [facility] [address] [id number] [address] [place] [address], [place] [address] Mar, [facility] [address] [id number] [address] [place] [address], [place] [address] Mar, [facility] [address] [id number] [address] [place] [address], [place] [address] Mar, [facility] [address] [id number] [address] [place] [address], [place] [address] Mar, [facility] [address] [id number] [address] [place] [address], [place] [address] Mar, [facility] [address] [id number] [address] [place] [address], [place] [address] Feb, [facility] [address] [id number] [address] [place] [address], [place] [address] Feb, [facility] [address] [id number] [address] [place] [address], [place] [address] January, [facility] [address] [id number] [address] [place] [address], [place] [address] January, [facility] [address] [id number] [address] [place] [address], [place] [address] Dec, [facility] [address] [id number] [address] [place] [address], [place] [address] Dec, [facility] [address] [id number] [address] [place] [address], [place] [address] Nov, [facility] [address] [id number] [address] [place] [address], [place] [address] Nov, [facility] [address] [id number] [address] [place] [address], [place] [address] Nov, [facility] [address] [id number] [address] [place] [address], [place] [address] Nov, [facility] [address] [id number] [address] [place] [address], [place] [address] Oct, [facility] [address] [id number] [address] [place] [address], [place] [address] Oct, [facility] [address] [id number] [address] [place] [address], [place] [address] Oct, [facility] [address] [id number] [address] [place] [address], [place] [address] Oct, [facility] [address] [id number] [address] [place] [address], [place] [address] 16 Oct, 2012 [facility] [address] [id number] [address] [place] [address], [place] [address] 14 Oct, 2012 [facility] [address] [id number] [address] [place] [address], [place] [address] 08 Oct, 2012 [facility] [address] [id number] [address] [place] [address], [place] [address] 07 Oct, 2012 [facility] [address] [id number] [address] [place] [address], [place] [address] 03 Oct, 2012 [facility] [address] [id number] [address] [place] [address], [place] [address] Sep, [facility] [address] [id number] [address] [place] [address], [place] [address] Sep, [facility] [address] [id number] [address] [place] [address], [place] [address] Sep, [facility] [address] [id number] [address] [place] [address], [place] [address] Sep, [facility] [address] [id number] [address] [place] [address], [place] [address] Sep, [facility] [address] [id number] [address] [place] [address], [place] [address] 10 Sep, 2012 [facility] [address] [id number] [address] [place] [address], [place] [address] Sep, [facility] [address] [id number] [address] [place] [address], [place] [address] Sep, [facility] [address] [id number] [address] [place] [address], [place] [address] Aug, [facility] [address] [id number] [address] [place] [address], [place] [address] Aug, [facility] [address] [id number] [address] [place] [address], [place] [address] Aug, [facility] [address] [id number] [address] [place] [address], [place] [address] Aug, [facility] [address] [id number] [address] [place] [address], [place] [address] Aug, [facility] [address] [id number] [address] [place] [address], [place] [address] Aug, [facility] [address] [id number] [address] [place] [address], [place] [address] Aug, [facility] [address] [id number] [address] [place] [address], [place] [address] Aug, [facility] [address] [id number] [address] [place] [address], [place] [address] Jul, [facility] [address] [id number] [address] [place] [address], [place] [address] Jul, [facility] [address] [id number] [address] [place] [address], [place] [address] Jul, [facility] [address] [id number] [address] [place] [address], [place] [address] Jul, [facility] [address] [id number] [address] [place] [address], [place] [address] Jul, [facility] [address] [id number] [address] [place] [address], [place] [address] Jul, [facility] [address] [id number] [address] [place] [address], [place] [address] Jun, [facility] [address] [id number] [address] [place] [address], [place] [address] Jun, [facility] [address] [id number] [address] [place] [address], [place] [address] Jun, [facility] [address] [id number] [address] [place] [address], [place] [address] Jun, [facility] [address] [id number] [address] [place] [address], [place] [address] Jun, [facility] [address] [id number] [address] [place] [address], [place] [address] Jun, [facility] [address] [id number] [address] [place] [address], [place] [address] Jun, [facility] [address] [id number] [address] [place] [address], [place] [address] Jun, [facility] [address] [id number] [address] [place] [address], [place] [address] Jun, [facility] [address] [id number] [address] [place] [address], [place] [address] 26 May, 2012 [facility] [address] [id number] [address] [place] [address] 24 May, 2012 [facility] [address] [id number] [address] [place] [address], [place] [address] 18 May, 2012 [facility] [address] [id number] [address] [place] [address], [place] [address] 30 Apr, 2012 [facility] [address] [id number] [address] [place] [address], [place] [address] Apr, [facility] [address] [id number] [address] [place] [address] Apr, [facility] [address] [id number] [address] [place] [address], [place] [address] Apr, [facility] [address] [id number] [address] [place] [address], [place] [address] Apr, [facility] [address] [id number] [address] [place] [address], [place] [address] Apr, [facility] [address] [id number] [address] [place] [address], [place] [address] Mar, [facility] [address] [id number] [address] [place] [address], [place] [address] Mar, [facility] [address] [id number] [address] [place] [address], [place] [address] Mar, [facility] [address] [id number] [address] [place] [address], [place] [address] Mar, [facility] [address] [id number] [address] [place] [address], [place] [address] Feb, [facility] [address] [id number] [address] [place] [address], [place] [address] Feb, [facility] [address] [id number] [address] [place] [address], [place] [address] Feb, [facility] [address] [id number] [address] [place] [address], [place] [address] Feb, [facility] [address] [id number] [address] [place] [address], [place] [address] Feb, [facility] [address] [id number] [address] [place] [address], [place] [address] January, [facility] [address] [id number] [address] [place] [address], [place] [address] January, [facility] [address] [id number] [address] [place] [address], [place] [address] January, [facility] [address] [id number] [address] [place] [address], [place] [address] January, [facility] [address] [id number] [address] [place] [address], [place] [address] January, [facility] [address] [id number] [address] [place] [address], [place] [address] January, [facility] [address] [id number] [address] [place] [address], [place] [address] Dec, [facility] [address] [id number] [address] [place] [address], [place] [address] Dec, [facility] [address] [id number] [address] [place] [address], [place] [address] Dec, [facility] [address] [id number] [address] [place] [address], [place] [address] Dec, [facility] [address] [id number] [address] [place] [address], [place] [address] Dec, [facility] [address] [id number] [address] [place] [address], [place] [address] Nov, [facility] [address] [id number] [address] [place] [address], [place] [address] Nov, [facility] [address] [id number] [address] [place] [address], [place] [address] Nov, [facility] [address] [id number] [address] [place] [address], [place] [address] Nov, [facility] [address] [id number] [address] [place] [address], [place] [address] Oct, [facility] [address] [id number] [address] [place] [address], [place] [address] Oct, [facility] [address] [id number] [address] [place] [address], [place] [address] Oct, [facility] [address] [id number] [address] [place] [address], [place] [address] Oct, [facility] [address] [id number] [address] [place] [address], [place] [address] Oct, [facility] [address] [id number] [address] [place] [address], [place] [address] Sep, [facility] [address] [id number] [address] [place] [address], [place] [address] Sep, [facility] [address] [id number] [address] [place] [address], [place] [address] Sep, [facility] [address] [id number] [address] [place] [address], [place] [address] Sep, [facility] [address] [id number] [address] [place] [address], [place] [address] Sep, [facility] [address] [id number] [address] [place] [address], [place] [address] Sep, [facility] [address] [id number] [address] [place] [address], [place] [address] Aug, [facility] [address] [id number] [address] [place] [address], [place] [address] Aug, [facility] [address] [id number] [address] [place] [address], [place] [address] Aug, [facility] [address] [id number] [address] [place] [address], [place] [address] Jul, [facility] [address] [id number] [address] [place] [id number] Jul, [facility] [address] [id number] [address] [place] [address], [place] [address] Jul, [facility] [address] [id number] [address] [place] [address], [place] [address] Jul, [facility] [address] [id number] [address] [place] [address], [place] [address] Jun, [facility] [address] [id number] [address] [place] [address], [place] [address] 31 Jun, 2011 [facility] [address] [id number] [address] [place] [address], [place] [address] 18 Jun, 2011 [facility] [address] [id number] [address] [place] [address], [place] [address] 10 Jun, 2011 [facility] [address] [id number] [address] [place] [address], [place] [address] 10 Jun, 2011 [facility] [address] [id number] [address] [place] [address], [place] [address] 10 Jun, 2011 [facility] [address] [id number] [address] [place] [address], [place] [address] 11 Mar, 2011 [facility] [address] [id number] [address] [place] [address], [place] [address] 18 Dec, 2010 [facility] [address] [id number] [address] [place] [address], [place] [address] 11 Dec, 2010 [facility] [address] [id number] [address] [place] [address], [place] [address] 18 Nov, 2010 [facility] [address] [id number] [address] [place] [address], [place] [address] 16 Nov, 2010 [facility] [address] [id number] [address] [place] [address], [place] [address] 10 Sep, 2010 [facility] [address] [id number] [address] [place] [address], [place] [address] 31 Aug, 2010 [facility] [address] [id number] [address] [place] [address], [place] [address] Aug, [facility] [address] [id number] [address] [place] [address], [place] [address] Aug, [facility] [address] [id number] [address] [place] [address], [place] [address] Aug, [facility] [address] [id number] [address] [place] [address], [place] [address] Aug, [facility] [address] [id number] [address] [place] [address], [place] [address] 14 Aug, 2010 [facility] [address] [id number] [address] [place] [address], [place] [address] 08 Aug, 2010 [facility] [address] [id number] [address] [place] [address], [place] [address] 08 Aug, 2010 [facility] [address] [id number] [address] [place] [address], [place] [address] 07 Aug, 2010 [facility] [address] [id number] [address] [place] [address], [place] [address] 06 Aug, 2010 [facility] [address] [id number] [address] [place] [address], [place] [address] Aug, [facility] [address] [id number] [address] [place] [address], [place] [address] Aug, [facility] [address] [id number] [address] [place] [address] Jul, [facility] [address] [id number] [address] [place] [address], [place] [address] Jul, [facility] [address] [id number] [address] [place] [address] Jul, [facility] [address] [id number] [address] [place] [address] Jul, [facility] [address] [id number] [address] [place] [address] Jul, [facility] [address] [id number] [address] [place] [address] Jul, [facility] [address] [id number] [address] [place] [id number] Jun, [facility] [address] [id number] [address] [place] [address] Jun, [facility] [address] [id number] [address] [place] [id number] 19 Jun, 2010 [facility] [address] [id number] [address] [place] [address], [place] [address] 13 Jun, 2010 [facility] [address] [id number] [address] [place] [address] 16 Apr, 2010 [facility] [address] [id number] [address] [place] [address], [place] [id number] 20 Mar, 2010 [facility] [address] [id number] [address] [place] [address], [place] [id number] 17 Feb, 2010 [facility] [address] [id number] [address] [place] [address], [place] [phone] January, [facility] [address] [id number] [address] [place] [address], [place] [id number] 15 Dec, 2009 [facility] [address] [id number] [address] [place] [address], [place] [phone] Nov, [facility] [address] [id number] [address] [place] [address], [place] [phone] Aug, [facility] [address] [id number] [address] [place] [address], [place] [address] Aug, [facility] [address] [id number] [address] [place] [address], [place] [address] Aug, [facility] [address] [id number] [address] [place] [phone] Jul, [facility] [address] [id number] [address] [place] [id number] Jul, [facility] [address] [id number] [address] [place] [phone] 07 Jul, 2009 [facility] [address] [id number] [address] [place] [address], [place] [address] 30 Jun, 2009 [facility] [address] [id number] [address] [place] [address], [place] [id number] 29 Jun, 2009 [facility] [address] [id number] [address] [place] [phone] Jun, [facility] [place] [address] [id number] [address] [place] [phone] Jun, [facility] [place] [address] [id number] [address] [place] [phone] Jun, [facility] [place] [address] [id number] [address] [place] [phone] Jun, [facility] [place] [address] [id number] [address] [place] [id number] Apr, [facility] [place] [address] [id number] [address] [place] [id number] Apr, [facility] [place] [address] [id number] [address] [place] [phone] Feb, [facility] [place] [address] [facility] [id number] [address] [place] [phone] January, [facility] [place] [address] [id number] [address] [place] [id number] Dec, IMMUNIZATIONS No Known Immunizations SOCIAL HISTORY Never Assessed REASON FOR VISIT [facility] [place]AN OF CARE VITAL SIGNS MEDICATIONS [...] History inability to urinate 09/16/15 Hospitalization History [facility] inpatient mental health ea rly 2000's Hospitalization History hyperkalemia 10/2017 Hospitalization History fluid in lung
--- OUTSIDE RECORDS SUMMARY | 2020-03-01 17:38 | XMS REPORT ---
Author Author Michele Verduzco Doctor Organization [facility] Address Unknown Phone Unavailable Care Team Providers Care Adhesion Tester Name Role Phone Migration, Doctor Unavailable Unavailable PROBLEMS Type Condition ICD9-CM Code IFC88-WL Code Onset Dates Condition S tatus SNOMED Code Problem Cough R05 Active 70924978 Problem Benign prostatic hyperplasia with lower urinary tract symptoms, unspecified morphology N40.1 Active 42415 6007 Problem Eustachian tube dysfunction, unspecified laterality H69.80 Active 06455187 Problem Chronic pain G89.29 Active 7889051 1 Problem DM neuro manif type II E11.49 Active 34977412 Problem Diabetes E11.9 Active 94093432 Problem Leukocytosis D72.829 Active 0742236 06 Problem Falling R29.6 Active 057880658 Problem Pressure ulcer of other site, stage 3 L89.893 Active 708674084 Problem 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 Active 242248217 Problem Eye exam abnormal R93.8 Active 16 8790357 Problem Dysuria R30.0 Active 16139640 Problem Hypokalemia E87.6 Active 17613437 Problem Morbid obesity E66.01 Active 97951 6002 Problem Anxiety F41.9 Active 91569391 Problem Diabetic polyneuropathy associated with type 2 d iabetes mellitus E11.42 Active 44302170 Problem Essential hypertension I10 Active 10927695 Problem Bilateral primary osteoarthritis of knee M17.0 Active 389992905 Problem Polyneuropathy associated with underlying disease G63 Active 113463861 Problem Anemia of chronic illness D63.8 Acti ve 860603203 Problem Lymphocytosis D72.820 Active 036294 09 Problem Retinal edema H35.81 Active 405105 6 Problem Chronic lymphocytic leukemia C91.10 A ctive 84885027 Problem Bipolar disorder, in partial remission, most rec ent episode depressed F31.75 Active 96075872 Problem Pure hypercholesterolemia E78.00 Acti ve 232214281 Problem Primary osteoarthritis of right knee M17.11 Active 755873250067808 Problem Bipolar disorder F31.9 Active 137 47003 Problem Bipolar I disorder, most recent episode (or curr ent) mixed, moderate F31.62 Active 48204513 Problem Chronic diastolic (congestive) heart failure I50.3 2 Active 228095161 Problem Reactive airway disease J45.909 Active 326175589636 Problem Insomnia, unspecified type G47.00 Act sharon 907993502 Problem Other chronic pain G89.29 Active 8 7612753 Problem Other iron deficiency anemia D50.8 A ctive 69206470 Problem Mild cognitive impairment G31.84 Acti ve 435595688 Problem Skin cancer C44.90 Active 97437007 7 ALLERGIES No Information ENCOUNTERS Encounter Location Date Diagnosis [facility] [address] [facility] [id number] [address] [place] [address] Mar, [facility] [address] [facility] [id number] [address] [place] [address] January, [facility] [address] [facility] [id number] [address] [place] [id number] January, [facility] [address] [facility] [id number] [address] [place] [id number] January, [facility] [address] [facility] [id number] [address] [place] [address] Dec, [facility] [address] [facility] [id number] [address] [place] [address] Dec, Chronic pain G89.29 and Bipo lar disorder F31.9 [facility] [address] [facility] [id number] [address] [place] [address] Dec, Edema of both lower extremit ies R60.0 [facility] [address] [facility] [id number] [address] [place] [address] Dec, Bipolar disorder F31.9 [facility] [address] [facility] [id number] [address] [place] [address] Dec, Bipolar disorder, in partial remission, most recent episode depressed F31.75 and Mild cognitive impairment G31.84 [facility] [address] [facility] [id number] [address] [place] [address] Nov, [place] [address] [place] [id number] [address] [place] [address] Nov, Chronic pain G89.29 [place] [address] [place] [id number] [address] [place] [address] Nov, Bipolar disorder, in partial remission, most recent episode depressed F31.75 and Mild cognitive impairment G31.84 [place] [id number] [place] [address] Nov, Bipolar disorder F31.9 [place] [id number] [address] [place] [id number] 04 Nov, 2018 Encounter for Medicare annua [...] N40.1 and Essential hypertension I10 [place] [address] [place] [id number] [address] [place] [address] Oct, Chronic pain G89.29 [place] [address] [place] [id number] [address] [place] [address] Oct, Diabetes E11.9 [place] [address] [facility] [id number] [address] [place] [address] Oct, Bipolar I disorder, most rec ent episode (or current) mixed, moderate F31.62 and Mild cognitive impairment G31.84 [place] [address] [place] [id number] [address] [place] [address] Oct, Bipolar I disorder, most rec ent episode (or current) mixed, moderate F31.62 and Mild cognitive impairment G31.84 [place] [address] [facility] [id number] [address] [place] [address] Sep, Bipolar I disorder, most rec ent episode (or current) mixed, moderate F31.62 and Mild cognitive impairment G31.84 [place] [address] [place] [id number] [address] [place] [address] Sep, [place] [address] [place] [id number] [address] [place] [address] Sep, Diabetes E11.9 ; Hypoxia R09 .02 ; Hyperglycemia R73.9 ; Therapeutic drug monitoring Z51.81 ; BMI 50.0-59.9, adult Z68.43 and Skin cancer C44.90 [place] [address] [place] [id number] [address] [place] [address] Sep, Chronic pain G89.29 [place] [address] [place] [id number] [address] [place] [address] Sep, Bipolar I disorder, most rec ent episode (or current) mixed, moderate F31.62 [place] [address] [place] [id number] [address] [place] [address] Sep, [place] [address] [place] [id number] [address] [place] [address] Sep, [place] [address] [place] [id number] [address] [place] [address] Aug, Chronic pain G89.29 [place] [address] [place] [id number] [address] [place] [address] Aug, Bipolar I disorder, most rec ent episode (or current) mixed, moderate F31.62 [place] [address] [place] [id number] [address] [place] [address] Aug, Bipolar I disorder, most rec ent episode (or current) mixed, moderate F31.62 and Mild cognitive impairment G31.84 [place] [address] [place] [id number] [address] [place] [address] Jul, [facility] [address] [id number] [address] [place] [address] Jul, Chronic pain G89.29 [facility] [address] [id number] [address] [place] [address] Jul, Bipolar I disorder, most rec ent episode (or current) mixed, moderate F31.62 and Mild cognitive impairment G31.84 [facility] [address] [id number] [address] [place] [address] Jul, Bipolar I disorder, most rec ent episode (or current) mixed, moderate F31.62 and MCI (mild cognitive impairment) G31.84 [facility] [address] [id number] [address] [place] [phone] Jul, [facility] [address] [id number] [address] [place] [address] Jul, [facility] [address] [id number] [address] [place] [address] Jul, Bipolar I disorder, most rec ent episode (or current) mixed, moderate F31.62 [facility] [address] [id number] [address] [place] [address] Jul, Chronic pain G89.29 [facility] [address] [id number] [address] [place] [phone] Jun, Bipolar I disorder, most rec ent episode (or current) mixed, moderate F31.62 [facility] [address] [id number] [address] [place] [address] Jun, Pre-procedure lab exam Z01.8 12 [facility] [address] [id number] [address] [place] [address] Jun, [facility] [address] [id number] [place] [address] [id number] Jun, [facility] [address] [id number] [address] [place] [address] Jun, [place] [id number] [place] [id number] [address] [place] [address] Jun, Forgetfulness R68.89 ; Pre-s yncope R55 ; Localized edema R60.0 ; Other iron deficiency anemia D50.8 and BMI 50.0-59.9, adult Z68.43 [place] [address] [place] [id number] [address] [place] [address] Jun, Chronic pain G89.29 [place] [address] [place] [id number] [address] [place] [address] Jun, Chronic pain G89.29 [place] [address] [place] [id number] [place] [address] Jun, Bipolar I disorder, most rec ent episode (or current) mixed, moderate F31.62 [place] [address] [place] [id number] [address] [place] [address] May, Chronic pain G89.29 [place] [address] [place] [id number] [address] [place] [address] Apr, [place] [address] [place] [id number] [place] [address] Apr, Chronic pain G89.29 [place] [address] [place] [id number] [address] [place] [address] Apr, Primary osteoarthritis of ri ght knee M17.11 [place] [address] [place] [id number] [address] [place] [address] Mar, [place] [address] [place] [id number] [address] [place] [address] Mar, BMI 50.0-59.9, adult Z68.43 and Bipolar disorder, in partial remission, most recent episode depressed F31.75 [place] [address] [place] [id number] [address] [place] [address] Mar, Diabetes E11.9 ; Pure hyperc holesterolemia E78.00 ; Essential hypertension I10 ; Nausea with vomiting, unspecified R11.2 and Headache, unspecified headache type R51 [facility] [address] [facility] [id number] [address] [place] [address] Mar, Bipolar I disorder, most rec ent episode (or current) mixed, moderate F31.62 [facility] [address] [place] [id number] [address] [place] [address] Mar, Bipolar I disorder, most rec ent episode (or current) mixed, moderate F31.62 [place] [address] [facility] [id number] [address] [place] [address] Mar, Chronic pain G89.29 [place] [address] [facility] [id number] [address] [place] [address] Mar, Bipolar I disorder, most rec ent episode (or current) mixed, moderate F31.62 [place] [address] [place] [id number] [address] [place] [address] Feb, Bipolar I disorder, most rec ent episode (or current) mixed, moderate F31.62 [place] [address] [facility] [id number] [address] [place] [address] Feb, Chronic pain G89.29 [facility] [address] [facility] [id number] [address] [place] [address] Feb, Decubitus ulcer of right josselin t, stage 3 L89.893 and BMI 50.0-59.9, adult Z68.43 [facility] [address] [place] [id number] [address] [place] [address] Feb, Bipolar I disorder, most rec ent episode (or current) mixed, moderate F31.62 [place] [address] [place] [id number] [address] [place] [address] Feb, [place] [address] [facility] [id number] [address] [place] [address] January, [place] [address] [place] [id number] [address] [place] [address] January, Chronic pain G89.29 [place] [address] [facility] [id number] [address] [place] [address] January, Bipolar I disorder, most rec ent episode (or current) mixed, moderate F31.62 [place] [address] [facility] [id number] [address] [place] [address] January, Bipolar I disorder, most rec ent episode (or current) mixed, moderate F31.62 [place] [address] [facility] [id number] [address] [place] [address] Dec, Bipolar I disorder, most rec ent episode (or current) mixed, moderate F31.62 and BMI 50.0-59.9, adult Z68.43 [place] [address] [facility] [id number] [address] [place] [address] Dec, Bipolar I disorder, most rec ent episode (or current) mixed, moderate F31.62 [place] [address] [place] [id number] [address] [place] [address] Dec, Chronic pain G89.29 [place] [address] [place] [id number] [address] [place] [address] Dec, DM neuro manif type II E11.4 9 ; Right flank pain R10.9 ; long-term 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 Z79.891 ; Encounter for medication monitoring Z51.81 and BMI 50.0-59.9, adult Z68.43 [place] [address] [place] [id number] [address] [place] [address] Dec, Bipolar I disorder, most rec ent episode (or current) mixed, moderate F31.62 [place] [address] [place] [id number] [address] [place] [address] Nov, Bipolar I disorder, most rec ent episode (or current) mixed, moderate F31.62 [place] [address] [place] [id number] [address] [place] [address] Nov, Chronic pain G89.29 [facility] [address] [facility] [id number] [address] [place] [address] Nov, Bipolar I disorder, most rec ent episode (or current) mixed, moderate F31.62 [facility] [address] [facility] [id number] [address] [place] [address] Nov, Hypokalemia E87.6 [facility] [address] [place] [id number] [address] [place] [address] Nov, Bipolar I disorder, most rec ent episode (or current) mixed, moderate F31.62 [facility] [address] [place] [id number] [address] [place] [address] Oct, Chronic pain G89.29 [facility] [address] [place] [id number] [address] [place] [address] Oct, BMI 50.0-59.9, adult Z68.43 and Bipolar I disorder, most recent episode (or current) mixed, moderate F31.62 [facility] [address] [place] [id number] [address] [place] [address] Oct, Bipolar I disorder, most rec ent episode (or current) mixed, moderate F31.62 [facility] [address] [place] [id number] [address] [place] [address] Oct, [place] [address] [place] [id number] [address] [place] [address] Oct, Hypokalemia E87.6 [facility] [address] [place] [id number] [address] [place] [address] Oct, DM neuro manif type II E11.4 9 [facility] [address] [place] [id number] [address] [place] [address] Oct, Bipolar I disorder, most rec ent episode (or current) mixed, moderate F31.62 [place] [address] [place] [id number] [address] [place] [address] Oct, Bipolar I disorder, most rec ent episode (or current) mixed, moderate F31.62 [place] [address] [address] 14 Oct, 2017 Hyperkalemia E87.5 ; Falling R29.6 ; BMI 50.0-59.9, adult Z68.43 and Acute left ankle pain M25.572 [place] [address] [address] 08 Oct, 2017 DM neuro manif type II E11.4 9 [place] [address] [address] Oct, [place] [address] [address] Sep, Chronic pain G89.29 [place] [address] [address] Sep, [place] [address] [address] Sep, Bilateral primary osteoarthr itis of knee M17.[address] [address] Sep, Generalized edema R60.1 [place] [address] [address] 16 Sep, 2017 Bipolar I disorder, most rec ent episode (or current) mixed, moderate F31.62 [place] [address] [address] 15 Sep, 2017 Hypoxia R09.02 ; Other hyper volemia E87.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 ; Anemia of chronic illness D63.8 and BMI 50.0- 59.9, adult Z68.43 [place] [address] [address] Sep, [facility] [address] [id number] [address] [place] [address] Sep, Bipolar I disorder, most rec ent episode (or current) mixed, moderate F31.62 [facility] [address] [id number] [address] [place] [address] Aug, Chronic pain G89.29 [facility] [address] [id number] [address] [place] [address] Aug, Generalized edema R60.1 [facility] [address] [id number] [address] [place] [address] Aug, [facility] [address] [id number] [address] [place] [address] Aug, [facility] [address] [id number] [address] [place] [address] Aug, Bipolar I disorder, most rec ent episode (or current) mixed, moderate F31.62 [facility] [address] [id number] [address] [place] [phone] 07 Aug, 2017 Bipolar I disorder, most rec ent episode (or current) mixed, moderate F31.62 [facility] [address] [id number] [address] [place] [address] 04 Aug, 2017 Chronic pain G89.29 [facility] [address] [id number] [address] [place] [address] Jul, Bipolar I disorder, most rec ent episode (or current) mixed, moderate F31.62 [facility] [address] [id number] [address] [place] [address] Jul, Bipolar I disorder, most rec ent episode (or current) mixed, moderate F31.62 and BMI 60.0-69.9, adult Z68.44 [facility] [address] [id number] [address] [place] [id number] 16 Jul, 2017 Bipolar I disorder, most rec ent episode (or current) mixed, moderate F31.62 [facility] [address] [facility] [id number] [address] [place] [address] Jul, Chronic pain G89.29 [facility] [address] [facility] [id number] [address] [place] [address] Jul, Bipolar I disorder, most rec ent episode (or current) mixed, moderate F31.62 [facility] [address] [facility] [id number] [address] [place] [address] Jun, Polyneuropathy associated wi th underlying disease G63 and Diabetes E11.9 [facility] [address] [facility] [id number] [address] [place] [address] Jun, Bipolar I disorder, most rec ent episode (or current) mixed, moderate F31.62 [facility] [address] [facility] [id number] [address] [place] [address] Jun, Chronic pain G89.29 [facility] [address] [facility] [id number] [address] [place] [address] May, Bipolar I disorder, most rec ent episode (or current) mixed, moderate F31.62 [facility] [address] [facility] [id number] [address] [place] [address] May, Bipolar I disorder, most rec ent episode (or current) mixed, moderate F31.62 [facility] [address] [facility] [id number] [address] [place] [address] 20 May, 2017 Diabetic polyneuropathy asso ciated with type 2 diabetes mellitus E11.42 [facility] [address] [id number] [address] [place] [address] 18 May, 2017 Bipolar I disorder, most rec ent episode (or current) mixed, moderate F31.62 [facility] [address] [facility] [id number] [address] [place] [address] 13 May, 2017 Bipolar I disorder, most rec ent episode (or current) mixed, moderate F31.62 [facility] [address] [id number] [address] [place] [address] May, Chronic pain G89.29 [facility] [address] [id number] [address] [place] [address] Apr, Bipolar I disorder, most rec ent episode (or current) mixed, moderate F31.62 [facility] [address] [id number] [address] [place] [address] Apr, [facility] [address] [id number] [address] [place] [address] Apr, Chronic pain G89.29 and DM n euro manif type II E11.49 [facility] [address] [id number] [address] [place] [address] Apr, [facility] [address] [id number] [address] [place] [address] Apr, Bipolar I disorder, most rec ent episode (or current) mixed, moderate F31.62 [facility] [address] [facility] [id number] [address] [place] [address] Apr, Chronic pain G89.29 [facility] [address] [facility] [id number] [address] [place] [address] Apr, Iliotibial band syndrome, le ft M76.32 [facility] [address] [facility] [id number] [address] [place] [address] Apr, Bipolar I disorder, most rec ent episode (or current) mixed, moderate F31.62 [facility] [address] [facility] [id number] [address] [place] [address] Mar, Bipolar I disorder, most rec ent episode (or current) mixed, moderate F31.62 [facility] [address] [facility] [id number] [address] [place] [address] Mar, Bipolar I disorder, most rec ent episode (or current) mixed, moderate F31.62 [facility] [address] [place] [id number] [address] [place] [address] Mar, [facility] [address] [id number] [address] [place] [address] Mar, Bipolar I disorder, most rec ent episode (or current) mixed, moderate F31.62 [facility] [address] [id number] [address] [place] [phone] Mar, Chronic pain G89.29 [facility] [address] [id number] [address] [place] [phone] Mar, Bipolar I disorder, most rec ent episode (or current) mixed, moderate F31.62 [facility] [address] [id number] [address] [place] [id number] Mar, Bipolar I disorder, most rec ent episode (or current) mixed, moderate F31.62 [facility] [address] [facility] [id number] [address] [place] [phone] Mar, Acute pain of left knee M25. 562 ; Left hip pain M25.552 ; Generalized edema R60.1 and Tongue swelling R22.0 [facility] [address] [id number] [address] [place] [id number] Mar, [facility] [address] [facility] [id number] [address] [place] [phone] Feb, Chronic pain G89.29 [facility] [address] [facility] [id number] [place] [address] Feb, Diabetes E11.9 [facility] [address] [id number] [address] [place] [address] January, Chronic pain G89.29 [facility] [address] [id number] [address] [place] [id number] January, [facility] [address] [facility] [id number] [address] [place] [address] January, Bipolar I disorder, most rec ent episode (or current) mixed, moderate F31.62 [facility] [address] [id number] [address] [place] [address] Dec, Bipolar I disorder, most rec ent episode (or current) mixed, moderate F31.62 [facility] [address] [id number] [address] [place] [address] Dec, Chronic pain G89.29 [facility] [address] [facility] [id number] [address] [place] [address] Dec, Bipolar I disorder, most rec ent episode (or current) mixed, moderate F31.62 [facility] [address] [facility] [id number] [address] [place] [address] Dec, Diabetes E11.9 ; Essential h ypertension I10 ; Chronic pain G89.29 and Morbid obesity E66.01 [facility] [address] [facility] [id number] [address] [place] [address] Dec, [facility] [address] [facility] [id number] [address] [place] [address] Dec, Bipolar I disorder, most rec ent episode (or current) mixed, moderate F31.62 [facility] [address] [facility] [id number] [address] [place] [phone] Dec, Bipolar I disorder, most rec ent episode (or current) mixed, moderate F31.62 [facility] [address] [facility] [id number] [address] [place] [phone] Nov, Chronic pain G89.29 [facility] [address] [id number] [address] [place] [id number] Nov, Bipolar I disorder, most rec ent episode (or current) mixed, moderate F31.62 [facility] [address] [facility] [id number] [address] [place] [phone] Nov, [facility] [address] [facility] [id number] [address] [place] [id number] Nov, Bipolar I disorder, most rec ent episode (or current) mixed, moderate F31.62 [facility] [address] [facility] [id number] [address] [place] [address] Nov, Bipolar I disorder, most rec ent episode (or current) mixed, moderate F31.62 [facility] [address] [facility] [id number] [address] [place] [address] Nov, [facility] [address] [place] [id number] [address] [place] [address] Nov, [facility] [address] [facility] [id number] [address] [place] [id number] Nov, [facility] [address] [facility] [id number] [address] [place] [id number] Oct, Chronic pain G89.29 [facility] [address] [place] [id number] [address] [place] [address] Oct, Bipolar I disorder, most rec ent episode (or current) mixed, moderate F31.62 [facility] [address] [place] [id number] [address] [place] [phone] Oct, [facility] [address] [facility] [id number] [address] [place] [address] Oct, Chronic pain G89.29 ; Diabet es E11.9 ; Anxiety F41.9 and 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 [facility] [address] [facility] [id number] [address] [place] [address] Oct, [facility] [address] [facility] [id number] [address] [place] [address] Oct, Diabetes E11.9 [facility] [address] [facility] [id number] [address] [place] [id number] Oct, Bipolar I disorder, most rec ent episode (or current) mixed, moderate F31.62 [facility] [address] [facility] [id number] [address] [place] [address] Sep, Chronic pain G89.29 [facility] [address] [facility] [id number] [address] [place] [address] Sep, Chronic pain G89.29 [facility] [address] [facility] [id number] [address] [place] [address] Aug, Chronic pain G89.29 [facility] [address] [facility] [id number] [address] [place] [id number] Jul, [facility] [address] [facility] [id number] [address] [place] [phone] Jul, Diabetes E11.9 [facility] [address] [facility] [id number] [address] [place] [address] Jul, Chronic pain G89.29 [facility] [address] [facility] [id number] [address] [place] [id number] Jul, Bipolar I disorder, most rec ent episode (or current) mixed, moderate F31.62 [facility] [address] [place] [id number] [address] [place] [address] Jun, Bipolar I disorder, most rec ent episode (or current) mixed, moderate F31.62 [facility] [address] [facility] [id number] [address] [place] [address] Jun, [facility] [address] [place] [id number] [address] [place] [phone] Jun, Bipolar I disorder, most rec ent episode (or current) mixed, moderate F31.62 [facility] [address] [facility] [id number] [address] [place] [address] 30 May, 2016 Insomnia, unspecified type G 47.00 [facility] [address] [facility] [id number] [address] [place] [phone] 22 May, 2016 Bipolar I disorder, most rec ent episode (or current) mixed, moderate F31.62 [facility] [address] [facility] [id number] [address] [place] [phone] 14 May, 2016 [facility] [address] [place] [id number] [address] [place] [phone] May, Bipolar I disorder, most rec ent episode (or current) mixed, moderate F31.62 [facility] [address] [facility] [id number] [address] [place] [address] May, Diabetes E11.9 and Essential hypertension I10 [facility] [address] [facility] [id number] [address] [place] [address] Apr, Chronic pain G89.29 [facility] [address] [facility] [id number] [address] [place] [address] Apr, Bipolar I disorder, most rec ent episode (or current) mixed, moderate F31.62 [place] [address] [facility] [id number] [address] [place] [address] Apr, [place] [address] [place] [id number] [address] [place] [address] Apr, [place] [address] [facility] [id number] [address] [place] [address] Mar, Chronic pain G89.29 ; Headac he, unspecified headache type R51 ; Neuropathy G62.9 ; Pain of right hip joint M25.551 and Essential hypertension I10 [place] [address] [facility] [id number] [address] [place] [address] Mar, Chronic pain G89.29 [place] [address] [facility] [id number] [address] [place] [address] Mar, Bipolar I disorder, most rec ent episode (or current) mixed, moderate F31.62 [place] [id number] [facility] [id number] [address] [place] [id number] Feb, Bipolar I disorder, most rec ent episode (or current) mixed, moderate F31.62 and Insomnia, unspecified type G47.00 [facility] [address] [id number] [address] [place] [address] Feb, Chronic pain G89.29 [facility] [address] [facility] [id number] [address] [place] [address] Feb, Bipolar I disorder, most rec ent episode (or current) mixed, moderate F31.62 [facility] [address] [id number] [address] [place] [address] January, Bipolar I disorder, most rec ent episode (or current) mixed, moderate F31.62 [facility] [address] [id number] [address] [place] [address] January, Chronic pain G89.29 [facility] [address] [id number] [address] [place] [address] January, Chronic pain G89.29 and Esse ntial hypertension I10 [facility] [address] [id number] [address] [place] [address] January, Bipolar I disorder, most rec ent episode (or current) mixed, moderate F31.62 [facility] [address] [id number] [address] [place] [address] Dec, [facility] [address] [id number] [address] [place] [phone] Dec, [facility] [address] [id number] [address] [place] [address] Dec, [facility] [address] [id number] [address] [place] [address] Dec, [facility] [address] [id number] [address] [place] [address] Nov, Reactive airway disease J45. 909 [facility] [address] [id number] [address] [place] [phone] Nov, [facility] [address] [id number] [address] [place] [address] Nov, [facility] [address] [id number] [address] [place] [phone] Nov, [facility] [address] [id number] [address] [place] [address] Nov, [place] [address] [address] Nov, Onychomycosis B35.1 ; Hammer toe M20.40 ; [place] or callus L84 and DM neuro manif type II E11.49 [place] [address] [address] Nov, Chronic pain G89.29 ; Leukoc ytosis D72.829 and Diabetes E11.9 [place] [address] [address] Nov, [place] [address] [address] Oct, Bronchitis J40 [place] [address] [id number] Oct, [place] [address] [address] Oct, [place] [address] [address] Oct, Mastoiditis, unspecified lat erality H70.90 and Type 2 diabetes mellitus with complication E11.8 [place] [address] [address] Sep, [place] [address] [address] Sep, Dysuria R30.0 ; Cough R05 ; Benign prostatic hyperplasia with lower urinary tract symptoms, unspecified morphology N40.1 ; Hypokalemia E87.6 and Eustachian tube dysfunction, unspecified laterality H69.[address] [address] Sep, Moderate mixed bipolar I dis order F31.[address] [address] Sep, Hypokalemia E87.6 [facility] [address] [id number] [address] [place] [address] Sep, [facility] [address] [facility] [id number] [address] [place] [address] Sep, Upper respiratory tract infe ction, unspecified type J06.9 [facility] [address] [id number] [address] [place] [address] Aug, [facility] [address] [id number] [address] [place] [address] Aug, Dysuria R30.0 [facility] [address] [id number] [address] [place] [address] Aug, [facility] [address] [id number] [address] [place] [address] Jul, [facility] [address] [id number] [address] [place] [id number] Jul, [facility] [address] [id number] [address] [place] [address] Jul, [facility] [address] [facility] [id number] [address] [place] [address] Jul, [facility] [address] [id number] [address] [place] [address] Jun, [facility] [address] [id number] [address] [place] [id number] Jun, [facility] [address] [id number] [address] [place] [address] Jun, [facility] [address] [id number] [address] [place] [address] May, [facility] [address] [facility] [id number] [address] [place] [address] May, Bipolar I disorder, most rec ent episode (or current) mixed, moderate 296.62 [facility] [address] [facility] [id number] [address] [place] [address] May, [facility] [address] [facility] [id number] [address] [place] [address] May, Bipolar I disorder, most rec ent episode (or current) mixed, moderate 296.62 and Major depressive disorder, recurrent episode, severe, specified as with psychotic behavior 296.34 [facility] [address] [facility] [id number] [address] [place] [address] May, Bipolar I disorder, most rec ent episode (or current) mixed, moderate 296.62 [facility] [address] [facility] [id number] [address] [place] [address] May, [facility] [address] [place] [id number] [address] [place] [address] Apr, [facility] [address] [facility] [id number] [address] [place] [address] Apr, [facility] [address] [place] [id number] [address] [place] [address] Apr, Unspecified disorder of kidn ey and ureter 593.9 and Diabetes mellitus type 2, uncontrolled 250.02 [facility] [address] [place] [id number] [address] [place] [phone] Apr, [facility] [address] [facility] [id number] [address] [place] [address] Apr, [facility] [address] [facility] [id number] [address] [place] [address] Apr, [facility] [address] [facility] [id number] [address] [place] [address] Apr, [facility] [address] [facility] [id number] [address] [place] [address] Apr, Diabetes mellitus type II, u ncontrolled 250.02 [facility] [address] [place] [id number] [address] [place] [address] Apr, [facility] [address] [facility] [id number] [address] [place] [address] Mar, [facility] [address] [place] [id number] [address] [place] [address] Mar, [facility] [address] [place] [id number] [address] [place] [address] Mar, [facility] [address] [place] [id number] [address] [place] [address] Mar, Major depressive disorder, r ecurrent episode, severe, specified as with psychotic behavior 296.34 and Bipolar I disorder, most recent episode (or current) mixed, moderate 296.62 [facility] [address] [place] [id number] [address] [place] [address] Mar, Diabetes 250.00 ; Anuria 788 .5 ; Nausea and vomiting 787.01 and Diarrhea 787.91 [facility] [address] [place] [id number] [address] [place] [address] Mar, Diabetes 250.00 [facility] [address] [place] [id number] [address] [place] [address] Mar, [facility] [address] [place] [id number] [address] [place] [address] Mar, Diabetes 250.00 [facility] [address] [place] [id number] [address] [place] [address] Mar, [facility] [address] [place] [id number] [address] [place] [address] Mar, [facility] [address] [place] [id number] [address] [place] [address] Mar, [facility] [address] [place] [id number] [address] [place] [address] Mar, [facility] [address] [place] [id number] [address] [place] [address] Mar, Bipolar I disorder, most rec ent episode (or current) mixed, moderate 296.62 and Major depressive disorder, recurrent episode, severe, specified as with psychotic behavior 296.[address] [address] Mar, Magnesium deficiency 275.2 ; Hypokalemia 276.8 ; Nausea & vomiting 787.01 and Diabetes mellitus type 2, uncontrolled 250.[address] [address] Feb, [address] [address] Feb, Bipolar I disorder, most rec ent episode (or current) mixed, moderate 296.[address] [address] Feb, Nausea and vomiting 787.01 ; Left elbow pain 719.42 ; Anuria 788.5 and Diabetes 250.[address] [address] Feb, [address] [address] Feb, Hypopotassemia 276.8 and Hyp okalemia 276.[address] [address] Feb, Hypopotassemia 276.8 and Hyp okalemia 276.[address] [address] Feb, Seborrheic keratoses 702.[address] [address] Feb, Hypopotassemia 276.8 and Low magnesium levels 275.[address] [address] January, [address] [address] January, [facility] [address] [id number] [address] [place] [address] January, [facility] [address] [id number] [address] [place] [address] January, Scalp lesion 709.9 [facility] [address] [id number] [address] [place] [address] January, [facility] [address] [id number] [address] [place] [address] Dec, Tear of medial cartilage or meniscus of knee, current 836.0 and 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 [facility] [address] [id number] [address] [place] [address] Dec, [facility] [address] [id number] [address] [place] [address] Dec, [facility] [address] [id number] [address] [place] [address] Dec, Squamous cell carcinoma, 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 [facility] [address] [id number] [address] [place] [address] Dec, [facility] [address] [id number] [address] [place] [address] Dec, [facility] [address] [id number] [address] [place] [address] Nov, [facility] [address] [id number] [address] [place] [address] Nov, [facility] [address] [id number] [address] [place] [phone] Nov, [facility] [address] [id number] [address] [place] [phone] Nov, [facility] [address] [id number] [address] [place] [address] Nov, [facility] [address] [id number] [address] [place] [address], [place] [address] Nov, [facility] [address] [id number] [address] [place] [address], [place] [address] Nov, 2014 [facility] [address] [id number] [address] [place] [address], [place] [address] Nov, 2014 [facility] [address] [id number] [address] [place] [address], [place] [address] Nov, 2014 [facility] [address] [id number] [address] [place] [address], [place] [address] Nov, [facility] [address] [id number] [address] [place] [address], [place] [address] Nov, [facility] [address] [id number] [address] [place] [address], [place] [address] Nov, [facility] [address] [id number] [address] [place] [address] Oct, 2014 [facility] [address] [id number] [address] [place] [address], [place] [address] Oct, 2014 [facility] [address] [id number] [address] [place] [address] Oct, 2014 [facility] [address] [id number] [address] [place] [address] Oct, 2014 [facility] [address] [id number] [address] [place] [address] Oct, 2014 [facility] [address] [id number] [address] [place] [address], [place] [address] Oct, 2014 [facility] [address] [id number] [address] [place] [address] Oct, 2014 [facility] [address] [id number] [address] [place] [address] Oct, 2014 [facility] [address] [id number] [address] [place] [address], [place] [address] Oct, [facility] [address] [id number] [address] [place] [address], [place] [address] Sep, [facility] [address] [id number] [address] [place] [address], [place] [address] Sep, [facility] [address] [id number] [address] [place] [address], [place] [address] Sep, [facility] [address] [id number] [address] [place] [address], [place] [address] Sep, [facility] [address] [id number] [address] [place] [address], [place] [address] Sep, [facility] [address] [id number] [address] [place] [address], [place] [address] Sep, [facility] [address] [id number] [address] [place] [address], [place] [address] Sep, [facility] [address] [id number] [address] [place] [address], [place] [address] Sep, [facility] [address] [id number] [address] [place] [address], [place] [address] Sep, [facility] [address] [id number] [address] [place] [address], [place] [address] Sep, [facility] [address] [id number] [address] [place] [address], [place] [address] Sep, [facility] [address] [id number] [address] [place] [address], [place] [address] Sep, [facility] [address] [id number] [address] [place] [address], [place] [address] Sep, [facility] [address] [id number] [address] [place] [address], [place] [address] Sep, [facility] [address] [id number] [address] [place] [address], [place] [address] Sep, [facility] [address] [id number] [address] [place] [address], [place] [address] Sep, [facility] [address] [id number] [address] [place] [address], [place] [address] Aug, [facility] [address] [id number] [address] [place] [address], [place] [address] Aug, [facility] [address] [id number] [address] [place], [place] [address], [place] [address] Aug, [facility] [address] [id number] [address] [place] [address], [place] [address] Aug, [facility] [address] [id number] [address] [place] [address], [place] [address] Aug, [facility] [address] [id number] [address] [place] [address], [place] [address] Aug, [facility] [address] [id number] [address] [place] [address], [place] [address] Aug, [facility] [address] [id number] [address] [place] [address], [place] [address] Aug, [facility] [address] [id number] [address] [place] [address], [place] [address] Aug, [facility] [address] [id number] [address] [place] [address], [place] [address] Aug, [facility] [address] [id number] [address] [place] [address], [place] [address] Aug, [facility] [place], [place] [id number] Aug, [facility] [address] [id number] [address] [place] [address], [place] [address] Aug, [facility] [address] [id number] [address] [place] [address], [place] [address] Aug, [facility] [address] [id number] [address] [place] [address], [place] [address] Aug, [facility] [address] [id number] [address] [place] [address], [place] [address] Aug, [facility] [address] [id number] [address] [place] [address], [place] [address] Aug, [facility] [address] [id number] [address] [place] [address], [place] [address] Aug, [facility] [address] [id number] [address] [place] [address], [place] [address] Aug, [facility] [address] [id number] [address] [place] [address], [place] [address] Aug, [facility] [address] [id number] [address] [place] [address], [place] [address] Aug, [facility] [address] [id number] [address] [place] [address], [place] [address] Aug, [facility] [address] [id number] [address] [place] [address], [place] [address] Aug, [facility] [address] [id number] [address] [place] [address], [place] [address] Aug, [facility] [address] [id number] [address] [place] [address], [place] [address] Aug, [facility] [address] [id number] [address] [place] [address], [place] [address] Aug, [facility] [address] [id number] [address] [place] [address], [place] [address] Aug, [facility] [address] [id number] [address] [place] [address], [place] [address] Aug, [facility] [address] [id number] [address] [place] [address], [place] [address] Aug, [facility] [address] [id number] [address] [place] [address], [place] [address] Aug, [facility] [address] [id number] [address] [place] [address], [place] [address] Jul, [facility] [address] [id number] [address] [place] [address], [place] [address] Jul, [facility] [address] [id number] [address] [place] [address], [place] [address] Jul, [facility] [address] [id number] [address] [place] [address], [place] [address] Jul, [facility] [address] [id number] [address] [place] [address], [place] [address] Jul, [facility] [address] [id number] [address] [place] [address], [place] [address] Jul, [facility] [address] [id number] [address] [place] [address], [place] [address] Jul, [facility] [address] [id number] [address] [place] [address], [place] [address] Jul, [facility] [address] [id number] [address] [place] [address], [place] [address] Jul, [facility] [address] [id number] [address] [place] [address], [place] [address] Jul, [facility] [address] [id number] [address] [place] [address], [place] [address] Jun, [facility] [address] [id number] [address] [place] [address], [place] [address] Jun, [facility] [address] [id number] [address] [place] [address], [place] [address] Jun, [facility] [address] [id number] [address] [place] [address], [place] [address] 16 Jun, 2014 [facility] [address] [id number] [address] [place] [address], [place] [address] 15 Jun, 2014 [facility] [address] [id number] [address] [place] [address], [place] [address] 15 Jun, 2014 [facility] [address] [id number] [address] [place] [address], [place] [address] 05 Jun, 2014 [facility] [address] [id number] [address] [place] [address], [place] [address] Jun, [facility] [address] [id number] [address] [place] [address], [place] [address] Jun, [facility] [address] [id number] [address] [place] [address], [place] [address] Jun, [facility] [address] [id number] [address] [place] [address], [place] [address] 29 May, 2014 [facility] [address] [id number] [address] [place] [address], [place] [address] 29 May, 2013 [facility] [address] [id number] [address] [place] [address], [place] [address] 26 May, 2013 [facility] [address] [id number] [address] [place] [address], [place] [address] 26 May, 2013 [facility] [address] [id number] [address] [place] [address], [place] [address] 17 May, 2013 [facility] [address] [id number] [address] [place] [address], [place] [address] 17 May, 2013 [facility] [address] [id number] [address] [place] [address], [place] [address] 15 May, 2013 [facility] [address] [id number] [address] [place] [address] 15 May, 2013 [facility] [address] [id number] [address] [place] [address], [place] [address] 15 May, 2013 [facility] [address] [id number] [address] [place] [address], [place] [address] 15 May, 2013 [facility] [address] [id number] [address] [place] [address], [place] [address] 10 May, 2013 [facility] [address] [id number] [address] [place] [address], [place] [address] May, [facility] [address] [id number] [address] [place] [address], [place] [address] May, [facility] [address] [id number] [address] [place] [address], [place] [address] May, [facility] [address] [id number] [address] [place] [address], [place] [address] May, [facility] [address] [id number] [address] [place] [address], [place] [address] May, [facility] [address] [id number] [address] [place] [address], [place] [address] Apr, [facility] [address] [id number] [address] [place] [address], [place] [address] Apr, [facility] [address] [id number] [address] [place] [address], [place] [address] Apr, [facility] [address] [id number] [address] [place] [address], [place] [address] Apr, [facility] [address] [id number] [address] [place] [address], [place] [address] Apr, [facility] [address] [id number] [address] [place] [address], [place] [address] Apr, [facility] [address] [id number] [address] [place] [address], [place] [address] Apr, [facility] [address] [id number] [address] [place] [address], [place] [address] Apr, [facility] [address] [id number] [address] [place] [address], [place] [address] Apr, [facility] [address] [id number] [address] [place] [address], [place] [address] Apr, [facility] [address] [id number] [address] [place] [address], [place] [address] Apr, [facility] [address] [id number] [facility] [place] [address] Apr, [facility] [address] [id number] [facility] [place] [address] Apr, [facility] [address] [id number] [facility] [place] [address] Apr, [facility] [address] [id number] [facility] [place] [address] Apr, [facility] [address] [id number] [facility] [place] [address] Mar, [facility] [address] [id number] [facility] [place] [address] Mar, [facility] [address] [id number] [address] [place] [address], [place] [address] Mar, [facility] [address] [id number] [address] [place] [address], [place] [address] Mar, [facility] [address] [id number] [address] [place] [address], [place] [address] Mar, [facility] [address] [id number] [address] [place] [address], [place] [address] Mar, [facility] [address] [id number] [address] [place] [address], [place] [address] Mar, [facility] [address] [id number] [address] [place] [address], [place] [address] Mar, [facility] [address] [id number] [address] [place] [address], [place] [address] Mar, [facility] [address] [id number] [address] [place] [address], [place] [address] Mar, [facility] [address] [id number] [address] [place] [address], [place] [address] Mar, [facility] [address] [id number] [address] [place] [address], [place] [address] Mar, 2013 [facility] [address] [id number] [facility] [place] [address] Mar, 2013 [facility] [address] [id number] [facility] [place] [address] Mar, 2013 [facility] [address] [id number] [facility] [place] [address] Mar, 2013 [facility] [address] [id number] [address] [place] [address], [place] [address] Mar, 2013 [facility] [address] [id number] [address] [place] [address], [place] [address] Mar, [facility] [address] [id number] [address] [place] [address], [place] [address] Mar, [facility] [address] [id number] [address] [place] [address], [place] [address] Feb, [facility] [address] [id number] [address] [place] [address], [place] [address] Feb, [facility] [address] [id number] [address] [place] [address], [place] [address] Feb, [facility] [address] [id number] [address] [place] [address], [place] [address] Feb, [facility] [address] [id number] [address] [place] [address], [place] [address] Feb, [facility] [address] [id number] [address] [place] [address], [place] [address] Feb, [facility] [address] [id number] [address] [place] [address], [place] [address] Feb, [facility] [address] [id number] [address] [place] [address], [place] [address] Feb, [facility] [address] [id number] [address] [place] [address], [place] [address] Feb, [facility] [address] [id number] [facility] [place] [address] Feb, [facility] [address] [id number] [address] [place] [address], [place] [address] Feb, [facility] [address] [id number] [facility] [place] [address] Feb, [facility] [address] [id number] [address] [place] [address], [place] [address] Feb, [facility] [address] [id number] [address] [place] [address], [place] [address] Feb, [facility] [address] [id number] [address] [place] [address], [place] [address] January, [facility] [address] [id number] [address] [place] [address], [place] [address] January, [facility] [address] [id number] [address] [place] [address], [place] [address] January, [facility] [address] [id number] [address] [place] [address], [place] [address] January, [facility] [address] [id number] [address] [place] [address], [place] [address] January, [facility] [address] [id number] [address] [place] [address], [place] [address] January, [facility] [address] [id number] [address] [place] [address], [place] [address] January, [facility] [address] [id number] [address] [place] [address], [place] [address] January, [facility] [address] [id number] [address] [place] [address], [place] [address] January, [facility] [address] [id number] [address] [place] [address], [place] [address] January, [facility] [address] [id number] [address] [place] [address], [place] [address] January, [facility] [address] [id number] [facility] [place] [address] January, [facility] [address] [id number] [address] [place] [address], [place] [address] January, [facility] [address] [id number] [address] [place] [address], [place] [address] January, [facility] [address] [id number] [address] [place] [address], [place] [address] Dec, [facility] [address] [id number] [address] [place] [address], [place] [address] Dec, [facility] [address] [id number] [address] [place] [address], [place] [address] Dec, [facility] [address] [id number] [address] [place] [address], [place] [address] Dec, [facility] [address] [id number] [address] [place] [address], [place] [address] Dec, [facility] [address] [id number] [address] [place] [address], [place] [address] Dec, [facility] [address] [id number] [address] [place] [address], [place] [address] Dec, [facility] [address] [id number] [address] [place] [address], [place] [address] Dec, [facility] [address] [id number] [address] [place] [address], [place] [address] Dec, [facility] [address] [id number] [address] [place] [address], [place] [address] Dec, [facility] [address] [id number] [address] [place] [address], [place] [address] Nov, [facility] [address] [id number] [address] [place] [address], [place] [address] Nov, [facility] [address] [id number] [address] [place] [address], [place] [address] Nov, [facility] [address] [id number] [address] [place] [address], [place] [address] Nov, [facility] [address] [id number] [address] [place] [address], [place] [address] Nov, [facility] [address] [id number] [address] [place] [address], [place] [address] Nov, [facility] [address] [id number] [address] [place] [address], [place] [address] Nov, [facility] [address] [id number] [address] [place] [address], [place] [address] Nov, [facility] [address] [id number] [address] [place] [address], [place] [address] Nov, [facility] [address] [id number] [address] [place] [address], [place] [address] Nov, [facility] [address] [id number] [address] [place] [address], [place] [address] Oct, [facility] [address] [id number] [address] [place] [address], [place] [address] Oct, [facility] [address] [id number] [address] [place] [address], [place] [address] Oct, [facility] [address] [id number] [address] [place] [address], [place] [address] Oct, [facility] [address] [id number] [address] [place] [address], [place] [address] Oct, [facility] [address] [id number] [address] [place] [address], [place] [address] Oct, [facility] [address] [id number] [address] [place] [address], [place] [address] 14 Oct, 2013 [facility] [address] [id number] [address] [place] [address], [place] [address] Oct, [facility] [address] [id number] [address] [place] [address], [place] [address] Oct, [facility] [address] [id number] [address] [place] [address], [place] [address] Oct, [facility] [address] [id number] [address] [place] [address], [place] [address] Oct, [facility] [address] [id number] [address] [place] [address], [place] [address] Oct, [facility] [address] [id number] [address] [place] [address], [place] [address] Oct, [facility] [address] [id number] [address] [place] [address], [place] [address] Oct, [facility] [address] [id number] [address] [place] [address], [place] [address] Sep, [facility] [address] [id number] [address] [place] [address], [place] [address] Sep, [facility] [address] [id number] [address] [place] [address], [place] [address] Sep, [facility] [address] [id number] [address] [place] [address], [place] [address] Sep, [facility] [address] [id number] [address] [place] [address], [place] [address] Sep, [facility] [address] [id number] [address] [place] [address], [place] [address] Sep, [facility] [address] [id number] [address] [place] [address], [place] [address] Sep, [facility] [address] [id number] [address] [place] [address], [place] [address] Sep, [facility] [address] [id number] [address] [place] [address], [place] [address] Sep, [facility] [address] [id number] [address] [place] [address], [place] [address] 08 Sep, 2013 [facility] [address] [id number] [address] [place] [address], [place] [address] 10 Aug, 2013 [facility] [address] [id number] [address] [place] [address], [place] [address] Aug, [facility] [address] [id number] [address] [place] [address], [place] [address] Jul, [facility] [address] [id number] [address] [place] [address], [place] [address] Jul, [facility] [address] [id number] [address] [place] [address], [place] [address] Jul, [facility] [address] [id number] [address] [place] [address], [place] [address] Jul, [facility] [address] [id number] [address] [place] [address], [place] [address] Jul, [facility] [address] [id number] [address] [place] [address], [place] [address] Jul, [facility] [address] [id number] [address] [place] [address], [place] [address] Jul, [facility] [address] [id number] [address] [place] [address], [place] [address] Jul, [facility] [address] [id number] [address] [place] [address], [place] [address] Jul, [facility] [address] [id number] [address] [place] [address], [place] [address] Jul, [facility] [address] [id number] [address] [place] [address], [place] [address] Jul, [facility] [address] [id number] [address] [place] [address], [place] [address] Jul, [facility] [address] [id number] [address] [place] [address], [place] [address] Jul, [facility] [address] [id number] [address] [place] [address], [place] [address] 05 Jul, 2012 [facility] [address] [id number] [address] [place] [address], [place] [address] Jul, 2012 [facility] [address] [id number] [address] [place] [address], [place] [address] Jul, 2012 [facility] [address] [id number] [address] [place] [address], [place] [address] Jul, 2012 [facility] [address] [id number] [address] [place] [address], [place] [address] Jul, 2012 [facility] [address] [id number] [address] [place] [address], [place] [address] Jul, [facility] [address] [id number] [address] [place] [address], [place] [address] Jun, 2012 [facility] [address] [id number] [address] [place] [address], [place] [address] 16 Jun, 2012 [facility] [address] [id number] [address] [place] [address], [place] [address] 16 Jun, 2012 [facility] [address] [id number] [address] [place] [address], [place] [address] 16 Jun, 2012 [facility] [address] [id number] [address] [place] [address], [place] [address] 16 Jun, 2012 [facility] [address] [id number] [address] [place] [address], [place] [address] 16 Jun, 2012 [facility] [address] [id number] [address] [place] [address], [place] [address] 10 Jun, 2013 [facility] [address] [id number] [address] [place] [address], [place] [address] 10 Jun, 2012 [facility] [address] [id number] [address] [place] [address] 09 Jun, 2012 [facility] [address] [id number] [address] [place] [address] Jun, [facility] [address] [id number] [address] [place] [address], [place] [address] Jun, [facility] [address] [id number] [address] [place] [address], [place] [address] May, [facility] [address] [id number] [address] [place] [address], [place] [address] May, [facility] [address] [id number] [address] [place] [address], [place] [address] May, 2012 [facility] [address] [id number] [address] [place] [address], [place] [address] 17 May, 2013 [facility] [address] [id number] [address] [place] [address], [place] [address] May, [facility] [address] [id number] [address] [place] [address], [place] [address] May, [facility] [address] [id number] [address] [place] [address], [place] [address] May, [facility] [address] [id number] [address] [place] [address], [place] [address] May, [facility] [address] [id number] [address] [place] [address], [place] [address] Apr, [facility] [address] [id number] [address] [place] [address], [place] [address] Apr, [facility] [address] [id number] [address] [place] [address], [place] [address] Apr, [facility] [address] [id number] [address] [place] [address], [place] [address] Apr, [facility] [address] [id number] [address] [place] [address], [place] [address] Apr, [facility] [address] [id number] [address] [place] [address], [place] [address] Mar, [facility] [address] [id number] [address] [place] [address], [place] [address] Mar, [facility] [address] [id number] [address] [place] [address], [place] [address] Mar, [facility] [address] [id number] [address] [place] [address], [place] [address] Mar, [facility] [address] [id number] [address] [place] [address], [place] [address] Mar, [facility] [address] [id number] [address] [place] [address], [place] [address] Mar, [facility] [address] [id number] [address] [place] [address], [place] [address] Mar, [facility] [address] [id number] [address] [place] [address], [place] [address] Mar, [facility] [address] [id number] [address] [place] [address], [place] [address] Feb, [facility] [address] [id number] [address] [place] [address], [place] [address] Feb, [facility] [address] [id number] [address] [place] [address], [place] [address] January, [facility] [address] [id number] [address] [place] [address], [place] [address] January, [facility] [address] [id number] [address] [place] [address], [place] [address] Dec, [facility] [address] [id number] [address] [place] [address], [place] [address] Dec, [facility] [address] [id number] [address] [place] [address], [place] [address] Nov, [facility] [address] [id number] [address] [place] [address], [place] [address] Nov, [facility] [address] [id number] [address] [place] [address], [place] [address] Nov, [facility] [address] [id number] [address] [place] [address], [place] [address] Nov, [facility] [address] [id number] [address] [place] [address], [place] [address] Oct, [facility] [address] [id number] [address] [place] [address], [place] [address] Oct, [facility] [address] [id number] [address] [place] [address], [place] [address] Oct, [facility] [address] [id number] [address] [place] [address], [place] [address] Oct, [facility] [address] [id number] [address] [place] [address], [place] [address] 16 Oct, 2012 [facility] [address] [id number] [address] [place] [address], [place] [address] 14 Oct, 2012 [facility] [address] [id number] [address] [place] [address], [place] [address] 08 Oct, 2012 [facility] [address] [id number] [address] [place] [address], [place] [address] 07 Oct, 2012 [facility] [address] [id number] [address] [place] [address], [place] [address] 03 Oct, 2012 [facility] [address] [id number] [address] [place] [address], [place] [address] Sep, [facility] [address] [id number] [address] [place] [address], [place] [address] Sep, [facility] [address] [id number] [address] [place] [address], [place] [address] Sep, [facility] [address] [id number] [address] [place] [address], [place] [address] Sep, [facility] [address] [id number] [address] [place] [address], [place] [address] Sep, [facility] [address] [id number] [address] [place] [address], [place] [address] 10 Sep, 2012 [facility] [address] [id number] [address] [place] [address], [place] [address] Sep, [facility] [address] [id number] [address] [place] [address], [place] [address] Sep, [facility] [address] [id number] [address] [place] [address], [place] [address] Aug, [facility] [address] [id number] [address] [place] [address], [place] [address] Aug, [facility] [address] [id number] [address] [place] [address], [place] [address] Aug, [facility] [address] [id number] [address] [place] [address], [place] [address] Aug, [facility] [address] [id number] [address] [place] [address], [place] [address] Aug, [facility] [address] [id number] [address] [place] [address], [place] [address] Aug, [facility] [address] [id number] [address] [place] [address], [place] [address] Aug, [facility] [address] [id number] [address] [place] [address], [place] [address] Aug, [facility] [address] [id number] [address] [place] [address], [place] [address] Jul, [facility] [address] [id number] [address] [place] [address], [place] [address] Jul, [facility] [address] [id number] [address] [place] [address], [place] [address] Jul, [facility] [address] [id number] [address] [place] [address], [place] [address] Jul, [facility] [address] [id number] [address] [place] [address], [place] [address] Jul, [facility] [address] [id number] [address] [place] [address], [place] [address] Jul, [facility] [address] [id number] [address] [place] [address], [place] [address] Jun, [facility] [address] [id number] [address] [place] [address], [place] [address] Jun, [facility] [address] [id number] [address] [place] [address], [place] [address] Jun, [facility] [address] [id number] [address] [place] [address], [place] [address] Jun, [facility] [address] [id number] [address] [place] [address], [place] [address] Jun, [facility] [address] [id number] [address] [place] [address], [place] [address] Jun, [facility] [address] [id number] [address] [place] [address], [place] [address] Jun, [facility] [address] [id number] [address] [place] [address], [place] [address] Jun, [facility] [address] [id number] [address] [place] [address], [place] [address] Jun, [facility] [address] [id number] [address] [place] [address], [place] [address] 26 May, 2012 [facility] [address] [id number] [address] [place] [address] 24 May, 2012 [facility] [address] [id number] [address] [place] [address], [place] [address] 18 May, 2012 [facility] [address] [id number] [address] [place] [address], [place] [address] 30 Apr, 2012 [facility] [address] [id number] [address] [place] [address], [place] [address] Apr, [facility] [address] [id number] [address] [place] [address] Apr, [facility] [address] [id number] [address] [place] [address], [place] [address] Apr, [facility] [address] [id number] [address] [place] [address], [place] [address] Apr, [facility] [address] [id number] [address] [place] [address], [place] [address] Apr, [facility] [address] [id number] [address] [place] [address], [place] [address] Mar, [facility] [address] [id number] [address] [place] [address], [place] [address] Mar, [facility] [address] [id number] [address] [place] [address], [place] [address] Mar, [facility] [address] [id number] [address] [place] [address], [place] [address] Mar, [facility] [address] [id number] [address] [place] [address], [place] [address] Feb, [facility] [address] [id number] [address] [place] [address], [place] [address] Feb, [facility] [address] [id number] [address] [place] [address], [place] [address] Feb, [facility] [address] [id number] [address] [place] [address], [place] [address] Feb, [facility] [address] [id number] [address] [place] [address], [place] [address] Feb, [facility] [address] [id number] [address] [place] [address], [place] [address] January, [facility] [address] [id number] [address] [place] [address], [place] [address] January, [facility] [address] [id number] [address] [place] [address], [place] [address] January, [facility] [address] [id number] [address] [place] [address], [place] [address] January, [facility] [address] [id number] [address] [place] [address], [place] [address] January, [facility] [address] [id number] [address] [place] [address], [place] [address] January, [facility] [address] [id number] [address] [place] [address], [place] [address] Dec, [facility] [address] [id number] [address] [place] [address], [place] [address] Dec, [facility] [address] [id number] [address] [place] [address], [place] [address] Dec, [facility] [address] [id number] [address] [place] [address], [place] [address] Dec, [facility] [address] [id number] [address] [place] [address], [place] [address] Dec, [facility] [address] [id number] [address] [place] [address], [place] [address] Nov, [facility] [address] [id number] [address] [place] [address], [place] [address] Nov, [facility] [address] [id number] [address] [place] [address], [place] [address] Nov, [facility] [address] [id number] [address] [place] [address], [place] [address] Nov, [facility] [address] [id number] [address] [place] [address], [place] [address] Oct, [facility] [address] [id number] [address] [place] [address], [place] [address] Oct, [facility] [address] [id number] [address] [place] [address], [place] [address] Oct, [facility] [address] [id number] [address] [place] [address], [place] [address] Oct, [facility] [address] [id number] [address] [place] [address], [place] [address] Oct, [facility] [address] [id number] [address] [place] [address], [place] [address] Sep, [facility] [address] [id number] [address] [place] [address], [place] [address] Sep, [facility] [address] [id number] [address] [place] [address], [place] [address] Sep, [facility] [address] [id number] [address] [place] [address], [place] [address] Sep, [facility] [address] [id number] [address] [place] [address], [place] [address] Sep, [facility] [address] [id number] [address] [place] [address], [place] [address] Sep, [facility] [address] [id number] [address] [place] [address], [place] [address] Aug, [facility] [address] [id number] [address] [place] [address], [place] [address] Aug, [facility] [address] [id number] [address] [place] [address], [place] [address] Aug, [facility] [address] [id number] [address] [place] [address], [place] [address] Jul, [facility] [address] [id number] [address] [place] [address] Jul, [facility] [address] [id number] [address] [place] [address], [place] [address] Jul, [facility] [address] [id number] [address] [place] [address], [place] [address] Jul, [facility] [address] [id number] [address] [place] [address], [place] [address] Jun, [facility] [address] [id number] [address] [place] [address], [place] [address] 31 Jun, 2011 [facility] [address] [id number] [address] [place] [address], [place] [address] 18 Jun, 2011 [facility] [address] [id number] [address] [place] [address], [place] [address] 10 Jun, 2011 [facility] [address] [id number] [address] [place] [address], [place] [address] 10 Jun, 2011 [facility] [address] [id number] [address] [place] [address], [place] [address] 10 Jun, 2011 [facility] [address] [id number] [address] [place] [address], [place] [address] 11 Mar, 2011 [facility] [address] [id number] [address] [place] [address], [place] [address] 18 Dec, 2010 [facility] [address] [id number] [address] [place] [address], [place] [address] 11 Dec, 2010 [facility] [address] [id number] [address] [place] [address], [place] [address] 18 Nov, 2010 [facility] [address] [id number] [address] [place] [address], [place] [address] 16 Nov, 2010 [facility] [address] [id number] [address] [place] [address], [place] [address] 10 Sep, 2010 [facility] [address] [id number] [address] [place] [address], [place] [address] 31 Aug, 2010 [facility] [address] [id number] [address] [place] [address], [place] [address] Aug, [facility] [address] [id number] [address] [place] [address], [place] [address] Aug, [facility] [address] [id number] [address] [place] [address], [place] [address] Aug, [facility] [address] [id number] [address] [place] [address], [place] [address] Aug, [facility] [address] [id number] [address] [place] [address], [place] [address] 14 Aug, 2010 [facility] [address] [id number] [address] [place] [address], [place] [address] 08 Aug, 2010 [facility] [address] [id number] [address] [place] [address], [place] [address] 08 Aug, 2010 [facility] [address] [id number] [address] [place] [address], [place] [address] 07 Aug, 2010 [facility] [address] [id number] [address] [place] [address], [place] [address] 06 Aug, 2010 [facility] [address] [id number] [address] [place] [address], [place] [address] Aug, [facility] [address] [id number] [address] [place] [address], [place] [address] Aug, [facility] [address] [id number] [address] [place] [address] Jul, [facility] [address] [id number] [address] [place] [address], [place] [address] Jul, [facility] [address] [id number] [address] [place] [address] Jul, [facility] [address] [id number] [address] [place] [address] Jul, [facility] [address] [id number] [address] [place] [address] Jul, [facility] [address] [id number] [address] [place] [address] Jul, [facility] [address] [id number] [address] [place] [address] Jun, [facility] [address] [id number] [address] [place] [address] Jun, [facility] [address] [id number] [address] [place] [address] 19 Jun, 2010 [facility] [address] [id number] [address] [place] [address], [place] [address] 13 Jun, 2010 [facility] [address] [id number] [address] [place] [address] 16 Apr, 2010 [facility] [address] [id number] [address] [place] [address], [place] [address] 20 Mar, 2010 [facility] [address] [id number] [address] [place] [address], [place] [address] 17 Feb, 2010 [facility] [address] [id number] [address] [place] [address], [place] [address] January, [facility] [address] [id number] [address] [place] [address], [place] [address] 15 Dec, 2009 [facility] [address] [id number] [address] [place] [address], [place] [address] Nov, [facility] [address] [id number] [address] [place] [address], [place] [address] Aug, [facility] [address] [id number] [address] [place] [address], [place] [address] Aug, [facility] [address] [id number] [address] [place] [address], [place] [address] Aug, [facility] [address] [id number] [address] [place] [address] Jul, [facility] [address] [id number] [address] [place] [address] Jul, [facility] [address] [id number] [address] [place] [address] 07 Jul, 2009 [facility] [address] [id number] [address] [place] [address], [place] [address] 30 Jun, 2009 [facility] [address] [id number] [address] [place] [address], [place] [address] 29 Jun, 2009 [facility] [address] [id number] [address] [place] [address] Jun, [facility] [address] [id number] [address] [place] [phone] Jun, [facility] [address] [id number] [address] [place] [phone] Jun, [facility] [address] [id number] [address] [place] [id number] Jun, [facility] [address] [id number] [address] [place] [id number] Apr, [facility] [address] [id number] [address] [place] [id number] Apr, [facility] [address] [id number] [address] [place] [phone] Feb, [facility] [address] [facility] [id number] [address] [place] [phone] January, [facility] [address] [id number] [address] [place] [id number] Dec, IMMUNIZATIONS No Known Immunizations SOCIAL HISTORY Never Assessed REASON FOR VISIT [facility] PLAN OF CARE VITAL SIGNS MEDICATIONS Unknown [...] obesity Medical History skin cancer-basal cell R adventist (removed ) Medical History Arthritis Medical History [...] History inability to urinate 09/16/15 Hospitalization History [facility] inpatient mental health ea rly 2000's Hospitalization History hyperkalemia 10/2017 Hospitalization History fluid in lung
--- OUTSIDE RECORDS SUMMARY | 2020-03-01 17:39 | XMS REPORT ---
Author Author Michele Verduzco Doctor Organization [facility] Address Unknown Phone Unavailable Care Team Providers Care Welt Beater Name Role Phone Migration, Doctor Unavailable Unavailable PROBLEMS Type Condition ICD9-CM Code [id number] Code Onset Dates Condition S tatus SNOMED Code Problem Hypokalemia E87.6 Active 62402607 Problem Cough R05 Active 25669817 Problem Dysuria R30.0 Active 99799658 Problem DM neuro manif type II E11.49 Active 67856239 Problem Benign prostatic hyperplasia with lower urinary tract symptoms, unspecified morphology N40.1 Active 81297 6007 Problem Leukocytosis D72.829 Active 4687570 06 Problem Chronic pain G89.29 Active 1653839 1 Problem 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 Active 207291042 Problem Eye exam abnormal R93.8 Active 16 2987549 Problem Anemia of chronic illness D63.8 Acti ve 799590455 Problem Lymphocytosis D72.820 Active 597756 09 Problem Eustachian tube dysfunction, unspecified laterality H69.80 Active 55344911 Problem Pressure ulcer of other site, stage 3 L89.893 Active 603287025 Problem Anxiety F41.9 Active 64936511 Problem Insomnia, unspecified type G47.00 Act sharon 743627832 Problem Essential hypertension I10 Active 60721618 Problem Morbid obesity E66.01 Active 30093 6002 Problem Polyneuropathy associated with underlying disease G63 Active 890214797 Problem Diabetic polyneuropathy associated with type 2 d iabetes mellitus E11.42 Active 17589827 Problem Retinal edema H35.81 Active 501945 6 Problem Chronic lymphocytic leukemia C91.10 A ctive 86823483 Problem Bilateral primary osteoarthritis of knee M17.0 Active 454105531 Problem Falling R29.6 Active 486618428 Problem Bipolar disorder, in partial remission, most rec ent episode depressed F31.75 Active 95674123 Problem Pure hypercholesterolemia E78.00 Acti ve 368837533 Problem Skin cancer C44.90 Active 57240282 7 Problem Reactive airway disease J45.909 Active 583330430738 Problem Bipolar disorder F31.9 Active 137 32610 Problem Diabetes E11.9 Active 58875448 Problem Bipolar I disorder, most recent episode (or curr ent) mixed, moderate F31.62 Active 62905029 Problem Primary osteoarthritis of right knee M17.11 Active 205178340934251 Problem Other chronic pain G89.29 Active 8 3975577 Problem Other iron deficiency anemia D50.8 A ctive 29740650 Problem Mild cognitive impairment G31.84 Acti ve 513276412 ALLERGIES No Information ENCOUNTERS Encounter Location Date Diagnosis [facility] [address] [id number] [address] [place] [phone] January, [facility] [address] [id number] [address] [place] [phone] January, [facility] [address] [id number] [address] [place] [phone] January, [facility] [address] [id number] [address] [place] [address] Dec, [facility] [address] [id number] [address] [place] [phone] Dec, [facility] [address] [id number] [address] [place] [phone] Dec, [facility] [address] [id number] [address] [place] [address] Dec, Bipolar disorder, in partial remission, most recent episode depressed F31.75 and Mild cognitive impairment G31.84 [facility] [address] [id number] [address] [place] [address] Nov, [facility] [address] [id number] [address] [place] [address] Nov, Chronic pain G89.29 [facility] [address] [id number] [address] [place] [phone] Nov, Bipolar disorder, in partial remission, most recent episode depressed F31.75 and Mild cognitive impairment G31.84 [facility] [address] [place] [id number] [address] [place] [address] 18 Nov, 2018 Bipolar disorder F31.[address] [address] 04 Nov, 2018 Encounter for Medicare annua [...] unspecified morphology N40.1 and Essential hypertension I10 [address] [address] Oct, Chronic pain G89.[address] [address] 18 Oct, 2018 Diabetes E11.[address] [address] Oct, Bipolar I disorder, most rec ent episode (or current) mixed, moderate F31.62 and Mild cognitive impairment G31.84 [place] [id number] [address] [place] [phone] Oct, Bipolar I disorder, most rec ent episode (or current) mixed, moderate F31.62 and Mild cognitive impairment G31.84 [place] [address] [place] [id number] [address] [place] [address] Sep, Bipolar I disorder, most rec ent episode (or current) mixed, moderate F31.62 and Mild cognitive impairment G31.84 [place] [address] [place] [id number] [address] [place] [address] Sep, [address] [address] Sep, Diabetes E11.9 ; Hypoxia R09 .02 ; Hyperglycemia R73.9 ; Therapeutic drug monitoring Z51.81 ; BMI 50.0-59.9, adult Z68.43 and Skin cancer C44.90 [facility] [address] [id number] [address] [place] [address] Sep, Chronic pain G89.29 [facility] [address] [id number] [address] [place] [address] Sep, Bipolar I disorder, most rec ent episode (or current) mixed, moderate F31.62 [place] [address] [id number] [address] [place] [address] Sep, [place] [address] [facility] [id number] [address] [place] [phone] Sep, [place] [address] [facility] [id number] [address] [place] [address] Aug, Chronic pain G89.29 [facility] [address] [id number] [address] [place] [address] Aug, Bipolar I disorder, most rec ent episode (or current) mixed, moderate F31.62 [place] [address] [facility] [id number] [address] [place] [address] Aug, Bipolar I disorder, most rec ent episode (or current) mixed, moderate F31.62 and Mild cognitive impairment G31.84 [place] [address] [facility] [id number] [address] [place] [address] Jul, [facility] [address] [facility] [id number] [address] [place] [address] Jul, Chronic pain G89.29 [facility] [address] [facility] [id number] [address] [place] [address] Jul, Bipolar I disorder, most rec ent episode (or current) mixed, moderate F31.62 and Mild cognitive impairment G31.84 [place] [address] [facility] [id number] [address] [place] [address] Jul, Bipolar I disorder, most rec ent episode (or current) mixed, moderate F31.62 and MCI (mild cognitive impairment) G31.84 [facility] [address] [facility] [id number] [address] [place] [address] Jul, [facility] [address] [facility] [id number] [address] [place] [address] Jul, [facility] [address] [facility] [id number] [address] [place] [address] Jul, Bipolar I disorder, most rec ent episode (or current) mixed, moderate F31.62 [facility] [address] [facility] [id number] [address] [place] [address] Jul, Chronic pain G89.29 [facility] [address] [facility] [id number] [address] [place] [address] Jun, Bipolar I disorder, most rec ent episode (or current) mixed, moderate F31.62 [facility] [address] [facility] [id number] [address] [place] [address] Jun, Pre-procedure lab exam Z01.8 12 [facility] [address] [facility] [id number] [address] [place] [phone] Jun, [facility] [address] [id number] [place] [id number] Jun, [facility] [address] [facility] [id number] [address] [place] [address] Jun, [facility] [address] [facility] [id number] [address] [place] [address] Jun, Forgetfulness R68.89 ; Pre-s yncope R55 ; Localized edema R60.0 ; Other iron deficiency anemia D50.8 and BMI 50.0-59.9, adult Z68.43 [facility] [address] [facility] [id number] [address] [place] [address] Jun, Chronic pain G89.29 [facility] [address] [facility] [id number] [address] [place] [address] Jun, Chronic pain G89.29 [facility] [address] [facility] [id number] [address] [place] [address] Jun, Bipolar I disorder, most rec ent episode (or current) mixed, moderate F31.62 [facility] [address] [facility] [id number] [address] [place] [address] May, Chronic pain G89.29 [facility] [address] [facility] [id number] [address] [place] [address] Apr, [facility] [address] [facility] [id number] [address] [place] [address] Apr, Chronic pain G89.29 [facility] [address] [place] [id number] [address] [place] [address] Apr, Primary osteoarthritis of ri t knee M17.11 [place] [address] [facility] [id number] [address] [place] [address] Mar, [place] [address] [facility] [id number] [address] [place] [address] Mar, BMI 50.0-59.9, adult Z68.43 and Bipolar disorder, in partial remission, most recent episode depressed F31.75 [place] [address] [place] [id number] [address] [place] [address] Mar, Diabetes E11.9 ; Pure hyperc holesterolemia E78.00 ; Essential hypertension I10 ; Nausea with vomiting, unspecified R11.2 and Headache, unspecified headache type R51 [place] [address] [place] [id number] [address] [place] [address] Mar, Bipolar I disorder, most rec ent episode (or current) mixed, moderate F31.62 [place] [id number] [place] [id number] [address] [place] [address] Mar, Bipolar I disorder, most rec ent episode (or current) mixed, moderate F31.62 [facility] [address] [facility] [id number] [address] [place] [address] Mar, Chronic pain G89.29 [facility] [address] [facility] [id number] [address] [place] [address] Mar, Bipolar I disorder, most rec ent episode (or current) mixed, moderate F31.62 [facility] [address] [facility] [id number] [address] [place] [address] Feb, Bipolar I disorder, most rec ent episode (or current) mixed, moderate F31.62 [place] [address] [facility] [id number] [address] [place] [address] Feb, Chronic pain G89.29 [place] [address] [facility] [id number] [address] [place] [address] Feb, Decubitus ulcer of right josselin t, stage 3 L89.893 and BMI 50.0-59.9, adult Z68.43 [place] [address] [facility] [id number] [address] [place] [address] Feb, Bipolar I disorder, most rec ent episode (or current) mixed, moderate F31.62 [place] [id number] [facility] [id number] [address] [place] [address] Feb, [place] [address] [facility] [id number] [address] [place] [address] January, [facility] [address] [facility] [id number] [address] [place] [address] January, Chronic pain G89.29 [facility] [address] [facility] [id number] [address] [place] [phone] January, Bipolar I disorder, most rec ent episode (or current) mixed, moderate F31.62 [facility] [address] [facility] [id number] [address] [place] [address] January, Bipolar I disorder, most rec ent episode (or current) mixed, moderate F31.62 [place] [id number] [facility] [id number] [address] [place] [phone] Dec, Bipolar I disorder, most rec ent episode (or current) mixed, moderate F31.62 and BMI 50.0-59.9, adult Z68.43 [place] [address] [facility] [id number] [address] [place] [address] Dec, Bipolar I disorder, most rec ent episode (or current) mixed, moderate F31.62 [place] [address] [facility] [id number] [address] [place] [address] Dec, Chronic pain G89.29 [place] [address] [place] [id number] [address] [place] [address] Dec, DM neuro manif type II E11.4 9 ; Right flank pain R10.9 ; 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 ; Encounter for medication monitoring Z51.81 and BMI 50.0-59.9, adult Z68.43 [place] [address] [place] [id number] [address] [place] [address] Dec, Bipolar I disorder, most rec ent episode (or current) mixed, moderate F31.62 [place] [address] [place] [id number] [address] [place] [address] Nov, Bipolar I disorder, most rec ent episode (or current) mixed, moderate F31.62 [place] [address] [facility] [id number] [address] [place] [address] Nov, Chronic pain G89.29 [place] [address] [facility] [id number] [address] [place] [phone] Nov, Bipolar I disorder, most rec ent episode (or current) mixed, moderate F31.62 [place] [address] [facility] [id number] [address] [place] [address] Nov, Hypokalemia E87.6 [place] [address] [place] [id number] [address] [place] [address] Nov, Bipolar I disorder, most rec ent episode (or current) mixed, moderate F31.62 [place] [address] [address] Oct, Chronic pain G89.29 [place] [address] [address] Oct, BMI 50.0-59.9, adult Z68.43 and Bipolar I disorder, most recent episode (or current) mixed, moderate F31.62 [place] [address] [address] Oct, Bipolar I disorder, most rec ent episode (or current) mixed, moderate F31.62 [place] [address] [address] Oct, [place] [address] [address] Oct, Hypokalemia E87.6 [place] [address] [address] Oct, DM neuro manif type II E11.4 9 [place] [address] [address] Oct, Bipolar I disorder, most rec ent episode (or current) mixed, moderate F31.62 [place] [address] [address] Oct, Bipolar I disorder, most rec ent episode (or current) mixed, moderate F31.62 [place] [address] [address] 14 Oct, 2017 Hyperkalemia E87.5 ; Falling R29.6 ; BMI 50.0-59.9, adult Z68.43 and Acute left ankle pain M25.572 [place] [address] [address] 08 Oct, 2017 DM neuro manif type II E11.4 9 [place] [address] [place] [id number] [place] [address] Oct, [facility] [address] [place] [id number] [address] [place] [address] Sep, Chronic pain G89.29 [place] [address] [place] [id number] [place] [address] Sep, [place] [address] [place] [id number] [place] [address] Sep, Bilateral primary osteoarthr itis of knee M17.0 [place] [address] [place] [id number] [place] [address] Sep, Generalized edema R60.1 [place] [address] [address] Sep, Bipolar I disorder, most rec ent episode (or current) mixed, moderate F31.62 [place] [address] [address] Sep, Hypoxia R09.02 ; Other hyper volemia E87.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 ; Anemia of chronic illness D63.8 and BMI 50.0- 59.9, adult Z68.43 [place] [address] [place] [id number] [address] [place] [address] Sep, [place] [address] [place] [id number] [place] [address] Sep, Bipolar I disorder, most rec ent episode (or current) mixed, moderate F31.62 [place] [address] [place] [id number] [address] [place] [address] Aug, Chronic pain G89.29 [place] [address] [place] [id number] [place] [address] Aug, Generalized edema R60.1 [facility] [address] [facility] [id number] [address] [place] [address] Aug, [facility] [address] [facility] [id number] [address] [place] [address] Aug, [facility] [address] [facility] [id number] [address] [place] [address] 14 Aug, 2017 Bipolar I disorder, most rec ent episode (or current) mixed, moderate F31.62 [place] [address] [facility] [id number] [address] [place] [address] Aug, Bipolar I disorder, most rec ent episode (or current) mixed, moderate F31.62 [place] [address] [place] [id number] [address] [place] [address] Aug, Chronic pain G89.29 [place] [address] [facility] [id number] [address] [place] [address] Jul, Bipolar I disorder, most rec ent episode (or current) mixed, moderate F31.62 [place] [address] [facility] [id number] [address] [place] [address] Jul, Bipolar I disorder, most rec ent episode (or current) mixed, moderate F31.62 and BMI 60.0-69.9, adult Z68.44 [place] [address] [place] [id number] [address] [place] [address] 16 Jul, 2017 Bipolar I disorder, most rec ent episode (or current) mixed, moderate F31.62 [place] [address] [facility] [id number] [address] [place] [address] 06 Jul, 2017 Chronic pain G89.29 [facility] [address] [facility] [id number] [address] [place] [address] 02 Jul, 2017 Bipolar I disorder, most rec ent episode (or current) mixed, moderate F31.62 [place] [address] [facility] [id number] [address] [place] [address] Jun, Polyneuropathy associated wi th underlying disease G63 and Diabetes E11.9 [facility] [address] [facility] [id number] [address] [place] [address] 16 Jun, 2017 Bipolar I disorder, most rec ent episode (or current) mixed, moderate F31.62 [facility] [address] [facility] [id number] [address] [place] [address] 09 Jun, 2017 Chronic pain G89.29 [facility] [address] [facility] [id number] [address] [place] [address] May, Bipolar I disorder, most rec ent episode (or current) mixed, moderate F31.62 [place] [address] [facility] [id number] [address] [place] [address] May, Bipolar I disorder, most rec ent episode (or current) mixed, moderate F31.62 [facility] [address] [facility] [id number] [address] [place] [address] May, Diabetic polyneuropathy asso ciated with type 2 diabetes mellitus E11.42 [facility] [address] [facility] [id number] [address] [place] [address] 18 May, 2017 Bipolar I disorder, most rec ent episode (or current) mixed, moderate F31.62 [facility] [address] [facility] [id number] [address] [place] [address] May, Bipolar I disorder, most rec ent episode (or current) mixed, moderate F31.62 [facility] [address] [facility] [id number] [address] [place] [address] May, Chronic pain G89.29 [facility] [address] [facility] [id number] [address] [place] [address] Apr, Bipolar I disorder, most rec ent episode (or current) mixed, moderate F31.62 [facility] [address] [facility] [id number] [address] [place] [address] Apr, [facility] [address] [id number] [address] [place] [address] Apr, Chronic pain G89.29 and DM n euro manif type II E11.49 [facility] [address] [id number] [address] [place] [address] Apr, [facility] [address] [facility] [id number] [address] [place] [address] Apr, Bipolar I disorder, most rec ent episode (or current) mixed, moderate F31.62 [facility] [address] [id number] [address] [place] [address] Apr, Chronic pain G89.29 [facility] [address] [id number] [address] [place] [address] Apr, Iliotibial band syndrome, le ft M76.32 [facility] [address] [facility] [id number] [address] [place] [phone] Apr, Bipolar I disorder, most rec ent episode (or current) mixed, moderate F31.62 [facility] [address] [id number] [address] [place] [phone] Mar, Bipolar I disorder, most rec ent episode (or current) mixed, moderate F31.62 [facility] [address] [id number] [address] [place] [address] Mar, Bipolar I disorder, most rec ent episode (or current) mixed, moderate F31.62 [facility] [address] [id number] [address] [place] [address] Mar, [facility] [address] [id number] [address] [place] [phone] Mar, Bipolar I disorder, most rec ent episode (or current) mixed, moderate F31.62 [facility] [address] [id number] [address] [place] [phone] Mar, Chronic pain G89.29 [facility] [address] [facility] [id number] [address] [place] [phone] Mar, Bipolar I disorder, most rec ent episode (or current) mixed, moderate F31.62 [facility] [address] [id number] [address] [place] [phone] Mar, Bipolar I disorder, most rec ent episode (or current) mixed, moderate F31.62 [facility] [address] [id number] [address] [place] [id number] Mar, Acute pain of left knee M25. 562 ; Left hip pain M25.552 ; Generalized edema R60.1 and Tongue swelling R22.0 [facility] [address] [id number] [address] [place] [phone] Mar, [facility] [address] [id number] [address] [place] [phone] Feb, Chronic pain G89.29 [facility] [address] [id number] [address] [place] [id number] Feb, Diabetes E11.9 [facility] [address] [id number] [address] [place] [phone] January, Chronic pain G89.29 [facility] [address] [id number] [address] [place] [phone] January, [facility] [address] [address] [id number] [address] [place] [address] January, Bipolar I disorder, most rec ent episode (or current) mixed, moderate F31.62 [facility] [address] [id number] [address] [place] [address] Dec, Bipolar I disorder, most rec ent episode (or current) mixed, moderate F31.62 [facility] [address] [id number] [address] [place] [address] Dec, Chronic pain G89.29 [facility] [address] [id number] [address] [place] [phone] Dec, Bipolar I disorder, most rec ent episode (or current) mixed, moderate F31.62 [facility] [address] [id number] [address] [place] [address] Dec, Diabetes E11.9 ; Essential h ypertension I10 ; Chronic pain G89.29 and Morbid obesity E66.01 [facility] [address] [id number] [address] [place] [phone] Dec, [facility] [address] [id number] [address] [place] [address] Dec, Bipolar I disorder, most rec ent episode (or current) mixed, moderate F31.62 [facility] [address] [id number] [address] [place] [address] Dec, Bipolar I disorder, most rec ent episode (or current) mixed, moderate F31.62 [facility] [address] [id number] [address] [place] [address] Nov, Chronic pain G89.29 [facility] [address] [id number] [address] [place] [phone] Nov, Bipolar I disorder, most rec ent episode (or current) mixed, moderate F31.62 [facility] [address] [id number] [address] [place] [phone] Nov, [facility] [address] [id number] [address] [place] [phone] Nov, Bipolar I disorder, most rec ent episode (or current) mixed, moderate F31.62 [facility] [address] [id number] [address] [place] [phone] Nov, Bipolar I disorder, most rec ent episode (or current) mixed, moderate F31.62 [facility] [address] [facility] [id number] [address] [place] [phone] Nov, [facility] [address] [id number] [address] [place] [phone] Nov, [facility] [address] [facility] [id number] [address] [place] [address] Nov, [facility] [address] [facility] [id number] [address] [place] [id number] Oct, Chronic pain G89.29 [facility] [address] [facility] [id number] [address] [place] [address] Oct, Bipolar I disorder, most rec ent episode (or current) mixed, moderate F31.62 [facility] [address] [facility] [id number] [address] [place] [phone] Oct, [facility] [address] [facility] [id number] [address] [place] [address] Oct, Chronic pain G89.29 ; Diabet es E11.9 ; Anxiety F41.9 and 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 [facility] [address] [facility] [id number] [address] [place] [address] Oct, [facility] [address] [facility] [id number] [address] [place] [address] Oct, Diabetes E11.9 [facility] [address] [facility] [id number] [address] [place] [address] Oct, Bipolar I disorder, most rec ent episode (or current) mixed, moderate F31.62 [facility] [address] [facility] [id number] [address] [place] [address] Sep, Chronic pain G89.29 [facility] [address] [facility] [id number] [address] [place] [address] Sep, Chronic pain G89.29 [facility] [address] [facility] [id number] [address] [place] [phone] Aug, Chronic pain G89.29 [facility] [address] [facility] [id number] [address] [place] [address] Jul, [facility] [address] [facility] [id number] [address] [place] [address] Jul, Diabetes E11.9 [facility] [address] [facility] [id number] [address] [place] [address] Jul, Chronic pain G89.29 [facility] [address] [facility] [id number] [address] [place] [phone] Jul, Bipolar I disorder, most rec ent episode (or current) mixed, moderate F31.62 [facility] [place] [address] [place] [id number] [address] [place] [address] Jun, Bipolar I disorder, most rec ent episode (or current) mixed, moderate F31.62 [facility] [place] [address] [place] [id number] [address] [place] [phone] Jun, [facility] [place] [address] [place] [id number] [address] [place] [id number] Jun, Bipolar I disorder, most rec ent episode (or current) mixed, moderate F31.62 [facility] [place] [address] [facility] [id number] [address] [place] [address] May, Insomnia, unspecified type G 47.00 [facility] [place] [address] [facility] [id number] [address] [place] [address] May, Bipolar I disorder, most rec ent episode (or current) mixed, moderate F31.62 [facility] [place] [address] [place] [id number] [address] [place] [phone] 14 May, 2016 [place] [address] [place] [id number] [address] [place] [phone] May, Bipolar I disorder, most rec ent episode (or current) mixed, moderate F31.62 [facility] [place] [address] [facility] [id number] [address] [place] [address] May, Diabetes E11.9 and Essential hypertension I10 [facility] [address] [facility] [id number] [address] [place] [address] Apr, Chronic pain G89.29 [place] [address] [place] [id number] [address] [place] [address] Apr, Bipolar I disorder, most rec ent episode (or current) mixed, moderate F31.62 [place] [address] [place] [id number] [address] [place] [address] Apr, [place] [address] [place] [id number] [address] [place] [address] Apr, [place] [address] [address] Mar, Chronic pain G89.29 ; Headac he, unspecified headache type R51 ; Neuropathy G62.9 ; Pain of right hip joint M25.551 and Essential hypertension I10 [facility] [address] [place] [id number] [address] [place] [address] Mar, Chronic pain G89.29 [place] [address] [place] [id number] [address] [place] [address] Mar, Bipolar I disorder, most rec ent episode (or current) mixed, moderate F31.62 [place] [address] [address] Feb, Bipolar I disorder, most rec ent episode (or current) mixed, moderate F31.62 and Insomnia, unspecified type G47.00 [place] [address] [place] [id number] [address] [place] [phone] Feb, Chronic pain G89.29 [place] [address] [place] [id number] [address] [place] [phone] Feb, Bipolar I disorder, most rec ent episode (or current) mixed, moderate F31.62 [place] [address] [place] [id number] [address] [place] [address] January, Bipolar I disorder, most rec ent episode (or current) mixed, moderate F31.62 [place] [address] [place] [id number] [address] [place] [address] January, Chronic pain G89.29 [facility] [address] [facility] [id number] [address] [place] [address] January, Chronic pain G89.29 and Esse ntial hypertension I10 [facility] [address] [facility] [id number] [address] [place] [phone] January, Bipolar I disorder, most rec ent episode (or current) mixed, moderate F31.62 [facility] [address] [facility] [id number] [address] [place] [address] Dec, [facility] [address] [facility] [id number] [address] [place] [phone] Dec, [facility] [address] [facility] [id number] [address] [place] [address] Dec, [facility] [address] [facility] [id number] [address] [place] [phone] Dec, [facility] [address] [facility] [id number] [address] [place] [phone] Nov, Reactive airway disease J45. 909 [facility] [address] [facility] [id number] [address] [place] [phone] Nov, [facility] [address] [facility] [id number] [address] [place] [address] Nov, [facility] [address] [facility] [id number] [address] [place] [phone] Nov, [facility] [address] [facility] [id number] [address] [place] [address] Nov, [facility] [address] [place] [id number] [address] [place] [address] Nov, Onychomycosis B35.1 ; Hammer toe M20.40 ; Farrar or callus L84 and DM neuro manif type II E11.49 [facility] [address] [facility] [id number] [address] [place] [address] Nov, Chronic pain G89.29 ; Leukoc ytosis D72.829 and Diabetes E11.9 [place] [address] [address] Nov, [place] [address] [address] Oct, Bronchitis J40 [place] [address] [address] Oct, [place] [address] [address] Oct, [place] [address] [address] Oct, Mastoiditis, unspecified lat erality H70.90 and Type 2 diabetes mellitus with complication E11.8 [place] [address] [address] Sep, [place] [address] [address] Sep, Dysuria R30.0 ; Cough R05 ; Benign prostatic hyperplasia with lower urinary tract symptoms, unspecified morphology N40.1 ; Hypokalemia E87.6 and Eustachian tube dysfunction, unspecified laterality H69.80 [place] [address] [address] Sep, Moderate mixed bipolar I dis order F31.62 [place] [address] [address] Sep, Hypokalemia E87.6 [place] [address] [address] Sep, [place] [address] [address] Sep, Upper respiratory tract infe ction, unspecified type J06.9 [place] [address] [place] [address] Aug, [facility] [address] [id number] [address] [place] [address] Aug, Dysuria R30.0 [facility] [address] [id number] [address] [place] [address] Aug, [facility] [address] [id number] [address] [place] [phone] Jul, [facility] [address] [id number] [address] [place] [phone] Jul, [facility] [address] [id number] [address] [place] [address] Jul, [facility] [address] [id number] [address] [place] [address] Jul, [facility] [address] [facility] [id number] [address] [place] [phone] Jun, [facility] [address] [id number] [address] [place] [address] Jun, [facility] [address] [id number] [address] [place] [address] Jun, [facility] [address] [facility] [id number] [address] [place] [phone] May, [facility] [address] [facility] [id number] [address] [place] [address] May, Bipolar I disorder, most rec ent episode (or current) mixed, moderate 296.62 [facility] [address] [id number] [address] [place] [address] 16 May, 2015 [facility] [address] [facility] [id number] [address] [place] [address] May, Bipolar I disorder, most rec ent episode (or current) mixed, moderate 296.62 and Major depressive disorder, recurrent episode, severe, specified as with psychotic behavior 296.34 [facility] [address] [id number] [address] [place] [address] May, Bipolar I disorder, most rec ent episode (or current) mixed, moderate 296.62 [facility] [address] [facility] [id number] [address] [place] [address] May, [facility] [address] [facility] [id number] [address] [place] [address] Apr, [facility] [address] [facility] [id number] [address] [place] [phone] Apr, [facility] [address] [facility] [id number] [address] [place] [address] Apr, Unspecified disorder of kidn ey and ureter 593.9 and Diabetes mellitus type 2, uncontrolled 250.02 [facility] [address] [facility] [id number] [address] [place] [phone] Apr, [facility] [address] [facility] [id number] [address] [place] [phone] Apr, [facility] [address] [facility] [id number] [address] [place] [address] Apr, [facility] [address] [facility] [id number] [address] [place] [phone] Apr, [facility] [address] [facility] [id number] [address] [place] [address] Apr, Diabetes mellitus type II, u ncontrolled 250.02 [facility] [address] [id number] [address] [place] [address] Apr, [facility] [address] [id number] [address] [place] [address] Mar, [facility] [address] [facility] [id number] [address] [place] [phone] Mar, [facility] [address] [facility] [id number] [address] [place] [address] Mar, [facility] [address] [place] [id number] [address] [place] [address] Mar, Major depressive disorder, r ecurrent episode, severe, specified as with psychotic behavior 296.34 and Bipolar I disorder, most recent episode (or current) mixed, moderate 296.62 [facility] [address] [address] Mar, Diabetes 250.00 ; Anuria 788 .5 ; Nausea and vomiting 787.01 and Diarrhea 787.91 [facility] [address] [address] Mar, Diabetes 250.00 [facility] [address] [address] Mar, [facility] [address] [address] Mar, Diabetes 250.00 [facility] [address] [address] Mar, [facility] [address] [address] Mar, [facility] [address] [address] Mar, [facility] [address] [address] Mar, [facility] [address] [place] [id number] [address] [place] [address] Mar, Bipolar I disorder, most rec ent episode (or current) mixed, moderate 296.62 and Major depressive disorder, recurrent episode, severe, specified as with psychotic behavior 296.34 [place] [address] [address] Mar, Magnesium deficiency 275.2 ; Hypokalemia 276.8 ; Nausea & vomiting 787.01 and Diabetes mellitus type 2, uncontrolled 250.02 [facility] [address] [address] Feb, [place] [address] [address] Feb, Bipolar I disorder, most rec ent episode (or current) mixed, moderate 296.62 [place] [address] [address] Feb, Nausea and vomiting 787.01 ; Left elbow pain 719.42 ; Anuria 788.5 and Diabetes 250.00 [place] [address] [address] Feb, [place] [address] [address] Feb, Hypopotassemia 276.8 and Hyp okalemia 276.8 [place] [address] [address] Feb, Hypopotassemia 276.8 and Hyp okalemia 276.8 [place] [address] [address] Feb, Seborrheic keratoses 702.19 [place] [address] [address] Feb, Hypopotassemia 276.8 and Low magnesium levels 275.2 [place] [address] [address] January, [place] [address] [address] January, [place] [address] [address] January, [facility] [address] [address] January, Scalp lesion 709.9 [place] [address] [address] January, [facility] [address] [id number] [address] [place] [address] Dec, Tear of medial cartilage or meniscus of knee, current 836.0 and 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 [facility] [address] [id number] [address] [place] [address], [place] [address] Dec, [facility] [address] [id number] [address] [place] [address] Dec, [facility] [address] [id number] [address] [place] [address] Dec, Squamous cell carcinoma, 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 [facility] [address] [id number] [address] [place] [address] 14 Dec, 2014 [facility] [address] [id number] [address] [place] [phone] Dec, [facility] [address] [id number] [address] [place] [address] Nov, [facility] [address] [id number] [address] [place] [phone] Nov, [facility] [address] [id number] [address] [place] [address] Nov, [facility] [address] [id number] [address] [place] [address] Nov, [facility] [address] [id number] [address] [place] [phone] Nov, [facility] [address] [id number] [address] [place] [phone] Nov, [facility] [address] [id number] [address] [place] [address] Nov, [facility] [address] [id number] [address] [place] [phone] Nov, [facility] [address] [id number] [address] [place] [address] [place] [address] Nov, 2014 [facility] [address] [id number] [address] [place] [address], [place] [address] Nov, [facility] [address] [id number] [address] [place] [address], [place] [address] Nov, [facility] [address] [id number] [address] [place] [address], [place] [address] Nov, [facility] [address] [id number] [address] [place] [address], [place] [address] Oct, 2014 [facility] [address] [id number] [address] [place] [address], [place] [address] Oct, 2014 [facility] [address] [id number] [address] [place] [address], [place] [address] Oct, 2014 [facility] [address] [id number] [address] [place] [address], [place] [address] Oct, 2014 [facility] [address] [id number] [address] [place] [address], [place] [address] Oct, 2014 [facility] [address] [id number] [address] [place] [address], [place] [address] Oct, 2014 [facility] [address] [id number] [address] [place] [address], [place] [address] Oct, [facility] [address] [id number] [address] [place] [address], [place] [address] Oct, [facility] [address] [id number] [address] [place] [address], [place] [address] Oct, [facility] [address] [id number] [address] [place] [address], [place] [address] Sep, [facility] [address] [id number] [address] [place] [address], [place] [address] Sep, [facility] [address] [id number] [address] [place] [address], [place] [address] Sep, [facility] [address] [id number] [address] [place] [address], [place] [address] Sep, [facility] [address] [id number] [address] [place] [address], [place] [address] Sep, [facility] [address] [id number] [address] [place] [address], [place] [address] Sep, [facility] [address] [id number] [address] [place] [address], [place] [address] Sep, [facility] [address] [id number] [address] [place] [address], [place] [address] Sep, [facility] [address] [id number] [address] [place] [address], [place] [address] Sep, [facility] [address] [id number] [address] [place] [address], [place] [address] Sep, [facility] [address] [id number] [address] [place] [address], [place] [address] Sep, [facility] [address] [id number] [address] [place] [address], [place] [address] Sep, [facility] [address] [id number] [address] [place] [address], [place] [address] Sep, [facility] [address] [id number] [address] [place] [address], [place] [address] Sep, [facility] [address] [id number] [address] [place] [address], [place] [address] Sep, [facility] [address] [id number] [address] [place] [address], [place] [address] Sep, [facility] [address] [id number] [address] [place] [address], [place] [address] Aug, [facility] [address] [id number] [address] [place] [address], [place] [address] Aug, [facility] [address] [id number] [address] [place] [address], [place] [address] Aug, [facility] [address] [id number] [facility] [place] [address] Aug, [facility] [address] [id number] [facility] [place] [address] Aug, [facility] [address] [id number] [facility] [place] [address] Aug, [facility] [address] [id number] [facility] [place] [address] Aug, [facility] [address] [id number] [address] [place] [address], [place] [address] Aug, [facility] [address] [id number] [address] [place] [address], [place] [address] Aug, [facility] [address] [id number] [address] [place] [address], [place] [address] Aug, [facility] [address] [id number] [address] [place] [address], [place] [address] Aug, [facility] [address] [place] [id number] Aug, [facility] [address] [id number] [address] [place] [address], [place] [address] Aug, [facility] [address] [id number] [address] [place] [address], [place] [address] Aug, [facility] [address] [id number] [address] [place] [address], [place] [address] Aug, [facility] [address] [address] [id number] [address] [place] [address], [place] [address] Aug, [facility] [address] [id number] [facility] [place] [address] Aug, [facility] [address] [id number] [facility] [place] [address] Aug, [facility] [address] [id number] [address] [place] [address], [place] [address] 08 Aug, 2014 [facility] [address] [id number] [address] [place] [address], [place] [address] Aug, [facility] [address] [id number] [address] [place] [address], [place] [address] Aug, [facility] [address] [id number] [address] [place] [address], [place] [address] Aug, [facility] [address] [id number] [address] [place] [address], [place] [address] Aug, [facility] [address] [id number] [address] [place] [address], [place] [address] Aug, [facility] [address] [id number] [address] [place] [address], [place] [address] Aug, [facility] [address] [id number] [address] [place] [address], [place] [address] Aug, [facility] [address] [id number] [address] [place] [address], [place] [address] Aug, [facility] [address] [id number] [address] [place] [address], [place] [address] Aug, [facility] [address] [id number] [address] [place] [address], [place] [address] Aug, [facility] [address] [id number] [address] [place] [address], [place] [address] Aug, [facility] [address] [id number] [address] [place] [address], [place] [address] Jul, [facility] [address] [id number] [address] [place] [address], [place] [address] Jul, [facility] [address] [id number] [address] [place] [address], [place] [address] Jul, [facility] [address] [id number] [address] [place] [address], [place] [address] Jul, [facility] [address] [id number] [address] [place] [address], [place] [address] Jul, [facility] [address] [id number] [address] [place] [address], [place] [address] Jul, [facility] [address] [id number] [address] [place] [address], [place] [address] Jul, [facility] [address] [id number] [address] [place] [address], [place] [address] Jul, [facility] [address] [id number] [address] [place] [address], [place] [address] Jul, [facility] [address] [id number] [address] [place] [address], [place] [address] Jul, [facility] [address] [id number] [address] [place] [address], [place] [address] Jun, [facility] [address] [id number] [address] [place] [address], [place] [address] Jun, [facility] [address] [id number] [address] [place] [address], [place] [address] Jun, [facility] [address] [id number] [address] [place] [address], [place] [address] Jun, [facility] [address] [id number] [address] [place] [address], [place] [address] Jun, [facility] [address] [id number] [address] [place] [address], [place] [address] Jun, [facility] [address] [id number] [address] [place] [address], [place] [address] Jun, [facility] [address] [id number] [address] [place] [address], [place] [address] Jun, [facility] [address] [id number] [address] [place] [address], [place] [address] Jun, [facility] [address] [id number] [address] [place] [address] [place] [address] Jun, 2013 [facility] [address] [id number] [address] [place] [address], [place] [address] 29 Sep, 2013 [facility] [address] [id number] [address] [place] [address], [place] [address] 29 Sep, 2013 [facility] [address] [id number] [address] [place] [address], [place] [address] 26 Sep, 2013 [facility] [address] [id number] [address] [place] [address], [place] [address] 26 Sep, 2013 [facility] [address] [id number] [address] [place] [address], [place] [address] 17 Sep, 2013 [facility] [address] [id number] [address] [place] [address], [place] [address] 17 Sep, 2013 [facility] [address] [id number] [address] [place] [address], [place] [address] 15 Sep, 2013 [facility] [address] [id number] [address] [place] [address], [place] [address] 15 Sep, 2013 [facility] [address] [id number] [address] [place] [address], [place] [address] 15 Sep, 2013 [facility] [address] [id number] [address] [place] [address], [place] [address] 15 Sep, 2013 [facility] [address] [id number] [address] [place] [address], [place] [address] 10 Sep, 2013 [facility] [address] [id number] [address] [place] [address], [place] [address] 10 Sep, 2013 [facility] [address] [id number] [address] [place] [address], [place] [address] 09 Sep, 2013 [facility] [address] [id number] [address] [place] [address], [place] [address] 09 Sep, 2013 [facility] [address] [id number] [address] [place] [address], [place] [address] 04 Sep, 2013 [facility] [address] [id number] [facility] [place] [address] May, [facility] [address] [id number] [facility] [place] [address] Apr, [facility] [address] [id number] [facility] [place] [address] Apr, [facility] [address] [id number] [address] [place] [address], [place] [address] Apr, [facility] [address] [id number] [address] [place] [address], [place] [address] Apr, [facility] [address] [id number] [address] [place] [address], [place] [address] Apr, [facility] [address] [id number] [address] [place] [address], [place] [address] Apr, [facility] [address] [id number] [address] [place] [address], [place] [address] Apr, [facility] [address] [id number] [address] [place] [address], [place] [address] Apr, [facility] [address] [id number] [address] [place] [address], [place] [address] Apr, [facility] [address] [id number] [address] [place] [address], [place] [address] Apr, [facility] [address] [id number] [address] [place] [address], [place] [address] Apr, [facility] [address] [id number] [address] [place] [address], [place] [address] Apr, [facility] [address] [id number] [address] [place] [address], [place] [address] Apr, [facility] [address] [id number] [address] [place] [address], [place] [address] Apr, [facility] [address] [id number] [address] [place] [address], [place] [address] Apr, [facility] [address] [id number] [facility] [place] [address] Mar, [facility] [address] [id number] [address] [place] [address], [place] [address] Mar, [facility] [address] [id number] [address] [place] [address], [place] [address] Mar, [facility] [address] [id number] [address] [place] [address], [place] [address] Mar, [facility] [address] [id number] [address] [place] [address], [place] [address] Mar, [facility] [address] [id number] [address] [place] [address], [place] [address] Mar, [facility] [address] [id number] [address] [place] [address], [place] [address] Mar, [facility] [address] [id number] [address] [place] [address], [place] [address] Mar, [facility] [address] [id number] [address] [place] [address], [place] [address] Mar, [facility] [address] [id number] [address] [place] [address], [place] [address] Mar, [facility] [address] [id number] [address] [place] [address], [place] [address] Mar, [facility] [address] [id number] [address] [place] [address], [place] [address] Mar, 2013 [facility] [address] [id number] [address] [place] [address], [place] [address] Mar, [facility] [address] [id number] [address] [place] [address], [place] [address] Mar, [facility] [address] [id number] [address] [place] [address], [place] [address] Mar, 2013 [facility] [address] [id number] [facility] [address] Mar, [facility] [address] [id number] [facility] [place] [address] Mar, [facility] [address] [id number] [facility] [place] [address] Mar, [facility] [address] [id number] [address] [place] [address], [place] [address] Feb, [facility] [address] [id number] [address] [place] [address], [place] [address] Feb, [facility] [address] [id number] [address] [place] [address], [place] [address] Feb, [facility] [address] [id number] [address] [place] [address], [place] [address] Feb, [facility] [address] [id number] [address] [place] [address], [place] [address] Feb, [facility] [address] [id number] [address] [place] [address], [place] [address] Feb, [facility] [address] [id number] [address] [place] [address], [place] [address] Feb, [facility] [address] [id number] [address] [place] [address], [place] [address] Feb, [facility] [address] [id number] [address] [place] [address], [place] [address] Feb, [facility] [address] [id number] [address] [place] [address], [place] [address] Feb, [facility] [address] [id number] [address] [place] [address], [place] [address] Feb, [facility] [address] [id number] [address] [place] [address], [place] [address] Feb, [facility] [address] [id number] [address] [place] [address], [place] [address] Feb, [facility] [address] [id number] [address] [place] [address], [place] [address] Feb, [facility] [address] [id number] [address] [place] [address], [place] [address] January, [facility] [address] [id number] [address] [place] [address], [place] [address] January, [facility] [address] [id number] [address] [place] [address], [place] [address] January, [facility] [address] [id number] [address] [place] [address], [place] [address] January, [facility] [address] [id number] [address] [place] [address], [place] [address] January, [facility] [address] [id number] [address] [place] [address], [place] [address] January, [facility] [address] [id number] [address] [place] [address], [place] [address] January, [facility] [address] [id number] [address] [place] [address], [place] [address] January, [facility] [address] [id number] [address] [place] [address], [place] [address] January, [facility] [address] [id number] [address] [place] [address], [place] [address] January, [facility] [address] [id number] [address] [place] [address], [place] [address] January, [facility] [address] [id number] [address] [place] [address], [place] [address] January, [facility] [address] [id number] [address] [place] [address], [place] [address] January, [facility] [address] [id number] [address] [place] [address], [place] [address] January, [facility] [address] [id number] [address] [place] [address], [place] [address] Dec, [facility] [address] [id number] [facility] [place] [address] Dec, [facility] [address] [id number] [address] [place] [address], [place] [address] Dec, [facility] [address] [id number] [address] [place] [address], [place] [address] Dec, [facility] [address] [id number] [address] [place] [address], [place] [address] Dec, [facility] [address] [id number] [address] [place] [address], [place] [address] Dec, [facility] [address] [id number] [address] [place] [address], [place] [address] Dec, [facility] [address] [id number] [address] [place] [address], [place] [address] Dec, [facility] [address] [id number] [address] [place] [address], [place] [address] Dec, [facility] [address] [id number] [address] [place] [address], [place] [address] Dec, [facility] [address] [id number] [address] [place] [address], [place] [address] Nov, [facility] [address] [id number] [address] [place] [address], [place] [address] Nov, [facility] [address] [id number] [address] [place] [address], [place] [address] Nov, [facility] [address] [id number] [address] [place] [address], [place] [address] Nov, [facility] [address] [id number] [address] [place] [address], [place] [address] Nov, [facility] [address] [id number] [address] [place] [address], [place] [address] Nov, [facility] [address] [id number] [address] [place] [address], [place] [address] Nov, [facility] [address] [id number] [address] [place] [address], [place] [address] Nov, [facility] [address] [id number] [address] [place] [address], [place] [address] Nov, [facility] [address] [id number] [address] [place] [address], [place] [address] Nov, [facility] [address] [id number] [address] [place] [address], [place] [address] Oct, [facility] [address] [id number] [address] [place] [address], [place] [address] Oct, [facility] [address] [id number] [address] [place] [address], [place] [address] Oct, [facility] [address] [id number] [address] [place] [address], [place] [address] Oct, [facility] [address] [id number] [address] [place] [address], [place] [address] Oct, [facility] [address] [id number] [address] [place] [address], [place] [address] Oct, [facility] [address] [id number] [address] [place] [address], [place] [address] Oct, [facility] [address] [id number] [address] [place] [address], [place] [address] Oct, [facility] [address] [id number] [address] [place] [address], [place] [address] Oct, [facility] [address] [id number] [address] [place] [address], [place] [address] Oct, [facility] [address] [id number] [address] [place] [address], [place] [address] Oct, [facility] [address] [id number] [address] [place] [address] 04 Oct, 2013 [facility] [address] [id number] [address] [place] [address], [place] [address] Oct, [facility] [address] [id number] [address] [place] [address], [place] [address] Oct, [facility] [address] [id number] [address] [place] [address], [place] [address] Sep, [facility] [address] [id number] [address] [place] [address], [place] [address] Sep, [facility] [address] [id number] [address] [place] [address], [place] [address] Sep, [facility] [address] [id number] [address] [place] [address], [place] [address] Sep, [facility] [address] [id number] [address] [place] [address], [place] [address] Sep, [facility] [address] [id number] [address] [place] [address], [place] [address] Sep, [facility] [address] [id number] [address] [place] [address], [place] [address] Sep, [facility] [address] [id number] [address] [place] [address], [place] [address] Sep, [facility] [address] [id number] [address] [place] [address], [place] [address] Sep, [facility] [address] [id number] [address] [place] [address], [place] [address] Sep, [facility] [address] [id number] [address] [place] [address], [place] [address] Aug, [facility] [address] [id number] [address] [place] [address], [place] [address] Aug, [facility] [address] [id number] [address] [place] [address], [place] [address] Jul, [facility] [address] [id number] [address] [place] [address], [place] [address] Jul, [facility] [address] [id number] [address] [place] [address], [place] [address] Jul, [facility] [address] [id number] [address] [place] [address], [place] [address] Jul, [facility] [address] [id number] [address] [place] [address], [place] [address] Jul, [facility] [address] [id number] [address] [place] [address], [place] [address] Jul, [facility] [address] [id number] [address] [place] [address], [place] [address] Jul, [facility] [address] [id number] [address] [place] [address], [place] [address] Jul, [facility] [address] [id number] [address] [place] [address], [place] [address] Jul, [facility] [address] [id number] [address] [place] [address], [place] [address] Jul, [facility] [address] [id number] [address] [place] [address], [place] [address] Jul, [facility] [address] [id number] [address] [place] [address], [place] [address] Jul, [facility] [address] [id number] [address] [place] [address], [place] [address] Jul, [facility] [address] [id number] [address] [place] [address], [place] [address] Jul, [facility] [address] [id number] [address] [place] [address], [place] [address] Jul, [facility] [address] [id number] [address] [place] [address], [place] [address] Jul, [facility] [address] [id number] [address] [address] Jul, [facility] [address] [id number] [address] [place] [address], [place] [address] Jul, [facility] [address] [id number] [address] [place] [address], [place] [address] Jul, [facility] [address] [id number] [address] [place] [address], [place] [address] Jun, 2012 [facility] [address] [id number] [address] [place] [address] Jun, 2012 [facility] [address] [id number] [address] [place] [address], [place] [address] Jun, 2012 [facility] [address] [id number] [address] [place] [address] Jun, 2012 [facility] [address] [id number] [address] [place] [address] Jun, 2012 [facility] [address] [id number] [address] [place] [address] Jun, [facility] [address] [id number] [address] [place] [address] Jun, [facility] [address] [id number] [address] [place] [address] Jun, [facility] [address] [id number] [address] [place] [address] Jun, [facility] [address] [id number] [address] [place] [address] Jun, [facility] [address] [id number] [address] [place] [address], [place] [address] Jun, [facility] [address] [id number] [address] [place] [address] May, [facility] [address] [id number] [address] [place] [address] May, [facility] [address] [id number] [address] [place] [address], [place] [address] 19 May, 2012 [facility] [address] [id number] [address] [place] [address], [place] [address] 17 May, 2012 [facility] [address] [id number] [address] [place] [address], [place] [address] 11 May, 2013 [facility] [address] [id number] [address] [place] [address], [place] [address] 10 May, 2012 [facility] [address] [id number] [address] [place] [address], [place] [address] 09 May, 2013 [facility] [address] [id number] [address] [place] [address], [place] [address] 05 May, 2013 [facility] [address] [id number] [address] [place] [address], [place] [address] Apr, [facility] [address] [id number] [address] [place] [address], [place] [address] Apr, [facility] [address] [id number] [address] [place] [address], [place] [address] Apr, [facility] [address] [id number] [address] [place] [address], [place] [address] Apr, [facility] [address] [id number] [address] [place] [address], [place] [address] Apr, [facility] [address] [id number] [address] [place] [address], [place] [address] Mar, [facility] [address] [id number] [address] [place] [address], [place] [address] Mar, [facility] [address] [id number] [address] [place] [address], [place] [address] Mar, [facility] [address] [id number] [address] [place] [address], [place] [address] Mar, [facility] [address] [id number] [address] [place] [address], [place] [address] Mar, [facility] [address] [id number] [address] [place] [address], [place] [address] Mar, [facility] [address] [id number] [address] [place] [address], [place] [address] Mar, [facility] [address] [id number] [address] [place] [address], [place] [address] Mar, [facility] [address] [id number] [address] [place] [address], [place] [address] Feb, [facility] [address] [id number] [address] [place] [address], [place] [address] Feb, [facility] [address] [id number] [address] [place] [address], [place] [address] January, [facility] [address] [id number] [address] [place] [address], [place] [address] January, [facility] [address] [id number] [address] [place] [address], [place] [address] Dec, [facility] [address] [id number] [address] [place] [address], [place] [address] Dec, [facility] [address] [id number] [address] [place] [address], [place] [address] Nov, [facility] [address] [id number] [address] [place] [address], [place] [address] Nov, [facility] [address] [id number] [address] [place] [address], [place] [address] Nov, [facility] [address] [id number] [address] [place] [address], [place] [address] Nov, [facility] [address] [id number] [address] [place] [address], [place] [address] Oct, [facility] [address] [id number] [address] [place] [address], [place] [address] Oct, [facility] [address] [id number] [address] [place] [address], [place] [address] 26 Oct, 2012 [facility] [address] [id number] [address] [place] [address], [place] [address] 26 Oct, 2012 [facility] [address] [id number] [address] [place] [address], [place] [address] 16 Oct, 2012 [facility] [address] [id number] [address] [place] [address], [place] [address] 14 Oct, 2012 [facility] [address] [id number] [address] [place] [address], [place] [address] 08 Oct, 2012 [facility] [address] [id number] [address] [place] [address], [place] [address] 07 Oct, 2012 [facility] [address] [id number] [address] [place] [address], [place] [address] 03 Oct, 2012 [facility] [address] [id number] [address] [place] [address], [place] [address] 30 Sep, 2012 [facility] [address] [id number] [address] [place] [address], [place] [address] Sep, [facility] [address] [id number] [address] [place] [address], [place] [address] Sep, [facility] [address] [id number] [address] [place] [address], [place] [address] Sep, [facility] [address] [id number] [address] [place] [address], [place] [address] Sep, [facility] [address] [id number] [address] [place] [address], [place] [address] Sep, [facility] [address] [id number] [address] [place] [address], [place] [address] 09 Sep, 2012 [facility] [address] [id number] [address] [place] [address], [place] [address] 08 Sep, 2012 [facility] [address] [id number] [address] [place] [address], [place] [address] Aug, [facility] [address] [id number] [address] [place] [address], [place] [address] Aug, [facility] [address] [id number] [address] [place] [address], [place] [address] Aug, [facility] [address] [id number] [address] [place] [address], [place] [address] Aug, [facility] [address] [id number] [address] [place] [address], [place] [address] Aug, [facility] [address] [id number] [address] [place] [address], [place] [address] Aug, [facility] [address] [id number] [address] [place] [address], [place] [address] Aug, [facility] [address] [id number] [address] [place] [address], [place] [address] Aug, [facility] [address] [id number] [address] [place] [address], [place] [address] Jul, [facility] [address] [id number] [address] [place] [address], [place] [address] Jul, [facility] [address] [id number] [address] [place] [address], [place] [address] Jul, [facility] [address] [id number] [address] [place] [address], [place] [address] Jul, [facility] [address] [id number] [address] [place] [address] Jul, [facility] [address] [id number] [address] [place] [address], [place] [address] Jul, [facility] [address] [id number] [address] [place] [address], [place] [address] Jun, [facility] [address] [id number] [address] [place] [address], [place] [address] Jun, [facility] [address] [id number] [address] [place] [address] Jun, [facility] [address] [id number] [address] [place] [address], [place] [address] 23 Jun, 2012 [facility] [address] [id number] [address] [place] [address], [place] [address] Jun, [facility] [address] [id number] [address] [place] [address], [place] [address] 19 Jun, 2012 [facility] [address] [id number] [address] [place] [address], [place] [address] 19 Jun, 2012 [facility] [address] [id number] [address] [place] [address], [place] [address] 10 Jun, 2012 [facility] [address] [id number] [address] [place] [address], [place] [address] 10 Jun, 2012 [facility] [address] [id number] [address] [place] [address], [place] [address] 26 May, 2012 [facility] [address] [id number] [address] [place] [address], [place] [address] 24 May, 2012 [facility] [address] [id number] [address] [place] [address], [place] [address] 18 May, 2012 [facility] [address] [id number] [address] [place] [address], [place] [address] 30 Apr, 2012 [facility] [address] [id number] [address] [place] [address], [place] [address] 29 Apr, 2012 [facility] [address] [id number] [address] [place] [address], [place] [address] 18 Apr, 2012 [facility] [address] [id number] [address] [place] [address], [place] [address] 14 Apr, 2012 [facility] [address] [id number] [address] [place] [address], [place] [address] 10 Apr, 2012 [facility] [address] [id number] [address] [place] [address], [place] [address] 07 Apr, 2012 [facility] [address] [id number] [facility] [place] [address] Mar, [facility] [address] [id number] [address] [place] [address], [place] [address] Mar, [facility] [address] [id number] [address] [place] [address], [place] [address] Mar, [facility] [address] [id number] [address] [place] [address], [place] [address] Mar, [facility] [address] [id number] [address] [place] [address], [place] [address] Feb, [facility] [address] [id number] [address] [place] [address], [place] [address] Feb, [facility] [address] [id number] [address] [place] [address], [place] [address] Feb, [facility] [address] [id number] [address] [place] [address], [place] [address] Feb, [facility] [address] [id number] [address] [place] [address], [place] [address] Feb, [facility] [address] [id number] [address] [place] [address], [place] [address] January, [facility] [address] [id number] [address] [place] [address], [place] [address] January, [facility] [address] [id number] [address] [place] [address], [place] [address] January, [facility] [address] [id number] [address] [place] [address], [place] [address] January, [facility] [address] [id number] [address] [place] [address], [place] [address] January, [facility] [address] [id number] [address] [place] [address], [place] [address] January, [facility] [address] [id number] [address] [place] [address], [place] [address] 24 Dec, 2011 [facility] [address] [id number] [address] [place] [address], [place] [address] 24 Dec, 2011 [facility] [address] [id number] [address] [place] [address], [place] [address] 17 Dec, 2011 [facility] [address] [id number] [address] [place] [address], [place] [address] 09 Dec, 2011 [facility] [address] [id number] [address] [place] [address], [place] [address] 06 Dec, 2011 [facility] [address] [id number] [address] [place] [address], [place] [address] 27 Nov, 2011 [facility] [address] [id number] [address] [place] [address], [place] [address] 14 Nov, 2011 [facility] [address] [id number] [address] [place] [address], [place] [address] Nov, [facility] [address] [id number] [address] [place] [address], [place] [address] 07 Nov, 2011 [facility] [address] [id number] [address] [place] [address], [place] [address] 29 Oct, 2011 [facility] [address] [id number] [address] [place] [address], [place] [address] 28 Oct, 2011 [facility] [address] [id number] [address] [place] [address], [place] [address] 24 Oct, 2011 [facility] [address] [id number] [address] [place] [address], [place] [address] 13 Oct, 2011 [facility] [address] [id number] [address] [place] [address], [place] [address] 08 Oct, 2011 [facility] [address] [id number] [address] [place] [address], [place] [address] 31 Sep, 2011 [facility] [address] [id number] [address] [place] [address], [place] [address] 30 Sep, 2011 [facility] [address] [id number] [address] [place] [address], [place] [address] Sep, [facility] [address] [id number] [address] [place] [address], [place] [address] Sep, [facility] [address] [id number] [address] [place] [address], [place] [address] Sep, [facility] [address] [id number] [address] [place] [address], [place] [address] Sep, [facility] [address] [id number] [address] [place] [address], [place] [address] Aug, [facility] [address] [id number] [address] [place] [address], [place] [address] Aug, [facility] [address] [id number] [address] [place] [address], [place] [address] Aug, [facility] [address] [id number] [address] [place] [address], [place] [address] Jul, [facility] [address] [id number] [address] [place] [address], [place] [address] Jul, [facility] [address] [id number] [address] [place] [address], [place] [address] Jul, [facility] [address] [id number] [address] [place] [address], [place] [address] Jul, [facility] [address] [id number] [address] [place] [address], [place] [address] Jun, [facility] [address] [id number] [address] [place] [address], [place] [address] Jun, [facility] [address] [id number] [address] [place] [address], [place] [address] Jun, [facility] [address] [id number] [address] [place] [address], [place] [address] Jun, [facility] [address] [id number] [address] [place] [address], [place] [address] Jun, [facility] [address] [id number] [address] [place] [address], [place] [address] 10 Jun, 2011 [facility] [address] [id number] [address] [place] [address], [place] [address] 11 Mar, 2011 [facility] [address] [id number] [address] [place] [address], [place] [address] 18 Dec, 2010 [facility] [address] [id number] [address] [place] [address], [place] [address] 11 Dec, 2010 [facility] [address] [id number] [address] [place] [address], [place] [address] 18 Nov, 2010 [facility] [address] [id number] [address] [place] [address], [place] [address] 16 Nov, 2010 [facility] [address] [id number] [address] [place] [address], [place] [address] 10 Sep, 2010 [facility] [address] [id number] [address] [place] [address], [place] [address] 31 Aug, 2010 [facility] [address] [id number] [address] [place] [address], [place] [address] 29 Aug, 2010 [facility] [address] [id number] [address] [place] [address], [place] [address] 29 Aug, 2010 [facility] [address] [id number] [address] [place] [address], [place] [address] 29 Aug, 2010 [facility] [address] [id number] [address] [place] [address], [place] [address] 27 Aug, 2010 [facility] [address] [id number] [address] [place] [address], [place] [address] 14 Aug, 2010 [facility] [address] [id number] [address] [place] [address], [place] [address] 08 Aug, 2010 [facility] [address] [id number] [address] [place] [address], [place] [address] 08 Aug, 2010 [facility] [address] [id number] [address] [place] [address] [place] [address] 07 Aug, 2010 [facility] [address] [id number] [address] [place] [address], [place] [address] Aug, [facility] [address] [id number] [address] [place] [address] Aug, [facility] [address] [id number] [address] [place] [address], [place] [address] Aug, [facility] [address] [id number] [address] [place] [address], [place] [address] Jul, [facility] [address] [id number] [address] [place] [address], [place] [address] Jul, [facility] [address] [id number] [address] [place] [address], [place] [address] Jul, [facility] [address] [id number] [address] [place] [address], [place] [address] Jul, [facility] [address] [id number] [address] [place] [address], [place] [address] Jul, [facility] [address] [id number] [address] [place] [address], [place] [address] Jul, [facility] [address] [id number] [address] [place] [address], [place] [address] Jun, [facility] [address] [id number] [address] [place] [address], [place] [address] Jun, [facility] [address] [id number] [address] [place] [address] Jun, [facility] [address] [id number] [address] [place] [address] Jun, [facility] [address] [id number] [address] [place] [address] Apr, [facility] [address] [id number] [address] [place] [address] Mar, [facility] [address] [id number] [address] [place] [address], [place] [address] 17 Feb, 2010 [facility] [address] [id number] [address] [place] [address], [place] [address] January, [facility] [address] [id number] [address] [place] [address], [place] [address] 15 Dec, 2009 [facility] [address] [id number] [address] [place] [address], [place] [address] Nov, [facility] [address] [id number] [address] [place] [address], [place] [address] 31 Aug, 2009 [facility] [address] [id number] [address] [place] [address], [place] [address] Aug, [facility] [address] [id number] [address] [place] [address], [place] [address] Aug, [facility] [address] [id number] [address] [place] [address], [place] [address] Jul, [facility] [address] [id number] [address] [place] [address], [place] [address] Jul, [facility] [address] [id number] [address] [place] [address], [place] [address] Jul, [facility] [address] [id number] [address] [place] [address], [place] [address] 30 Jun, 2009 [facility] [address] [id number] [address] [place] [address], [place] [address] 29 Jun, 2009 [facility] [address] [id number] [address] [place] [address], [place] [address] Jun, [facility] [address] [id number] [address] [place] [address], [place] [address] 22 Jun, 2009 [facility] [address] [id number] [address] [place] [address] Jun, [facility] [address] [id number] [address] [place] [address] Jun, [facility] [address] [facility] [id number] [address] [place] [address] Apr, [facility] [address] [facility] [id number] [address] [place] [address] Apr, [facility] [address] [facility] [id number] [address] [place] [address] Feb, [facility] [address] [facility] [id number] [address] [place] [address] January, [facility] [address] [facility] [id number] [address] [place] [address] Dec, IMMUNIZATIONS No Known Immunizations SOCIAL HISTORY Never Assessed [place] FOR [place] [place] VITAL SIGNS MEDICATIONS Unknown [...]
--- OUTSIDE RECORDS SUMMARY | 2020-03-01 17:39 | XMS REPORT ---
Author Author Michele Verduzco Doctor Organization [facility] Address Unknown Phone Unavailable Care Team Providers Care Manager Rail Name Role Phone Migration, Doctor Unavailable Unavailable PROBLEMS Type Condition ICD9-CM Code [id number] Code Onset Dates Condition S tatus SNOMED Code Problem Hypokalemia E87.6 Active 09981021 Problem Cough R05 Active 04948012 Problem Dysuria R30.0 Active 60040181 Problem DM neuro manif type II E11.49 Active 79212672 Problem Benign prostatic hyperplasia with lower urinary tract symptoms, unspecified morphology N40.1 Active 30314 6007 Problem Leukocytosis D72.829 Active 3595005 06 Problem Chronic pain G89.29 Active 4814333 1 Problem 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 Active 095392683 Problem Eye exam abnormal R93.8 Active 16 1492128 Problem Anemia of chronic illness D63.8 Acti ve 836907827 Problem Lymphocytosis D72.820 Active 026516 09 Problem Eustachian tube dysfunction, unspecified laterality H69.80 Active 68878117 Problem Pressure ulcer of other site, stage 3 L89.893 Active 121400989 Problem Anxiety F41.9 Active 20963245 Problem Insomnia, unspecified type G47.00 Act sharon 295618405 Problem Essential hypertension I10 Active 91360732 Problem Morbid obesity E66.01 Active 07596 6002 Problem Polyneuropathy associated with underlying disease G63 Active 291986607 Problem Diabetic polyneuropathy associated with type 2 d iabetes mellitus E11.42 Active 41505973 Problem Retinal edema H35.81 Active 190162 6 Problem Chronic lymphocytic leukemia C91.10 A ctive 60907660 Problem Bilateral primary osteoarthritis of knee M17.0 Active 591647471 Problem Falling R29.6 Active 202807651 Problem Bipolar disorder, in partial remission, most rec ent episode depressed F31.75 Active 01860124 Problem Pure hypercholesterolemia E78.00 Acti ve 767051063 Problem Skin cancer C44.90 Active 42914918 7 Problem Reactive airway disease J45.909 Active 104261594745 Problem Bipolar disorder F31.9 Active 137 30561 Problem Diabetes E11.9 Active 67530597 Problem Bipolar I disorder, most recent episode (or curr ent) mixed, moderate F31.62 Active 14612814 Problem Primary osteoarthritis of right knee M17.11 Active 478159068424384 Problem Other chronic pain G89.29 Active 8 8835681 Problem Other iron deficiency anemia D50.8 A ctive 62530481 Problem Mild cognitive impairment G31.84 Acti ve [id number] ALLERGIES No Information ENCOUNTERS Encounter Location Date Diagnosis [facility] [address] [id number] [address] [place] [address] January, [facility] [address] [id number] [address] [place] [address] January, [facility] [address] [id number] [address] [place] [address] January, [facility] [address] [id number] [address] [place] [address] Dec, [facility] [address] [id number] [address] [place] [address] Dec, [facility] [address] [id number] [address] [place] [address] Dec, [facility] [address] [id number] [address] [place] [address] Dec, Bipolar disorder, in partial remission, most recent episode depressed F31.75 and Mild cognitive impairment G31.84 [facility] [address] [id number] [address] [place] [address] Nov, [facility] [address] [id number] [address] [place] [address] Nov, Chronic pain G89.29 [facility] [address] [id number] [address] [place] [address] Nov, Bipolar disorder, in partial remission, most recent episode depressed F31.75 and Mild cognitive impairment G31.84 [facility] [address] [place] [id number] [address] [place] [address] 18 Nov, 2018 Bipolar disorder F31.[address] [address] 04 Nov, 2018 Encounter for Medicare annua [...] morphology N40.1 and Essential hypertension I10 [address] [address] Oct, Chronic pain G89.[address] [address] 18 Oct, 2018 Diabetes [address] [address] Oct, Bipolar I disorder, most rec ent episode (or current) mixed, moderate F31.62 and Mild cognitive impairment G31.84 [place] [id number] [address] [place] [address] Oct, Bipolar I disorder, most rec ent episode (or current) mixed, moderate F31.62 and Mild cognitive impairment G31.84 [place] [address] [place] [id number] [address] [place] [address] Sep, Bipolar I disorder, most rec ent episode (or current) mixed, moderate F31.62 and Mild cognitive impairment G31.84 [place] [address] [place] [id number] [address] [place] [address] Sep, [address] [address] Sep, Diabetes E11.9 ; Hypoxia R09 .02 ; Hyperglycemia R73.9 ; Therapeutic drug monitoring Z51.81 ; BMI 50.0-59.9, adult Z68.43 and Skin cancer C44.90 [facility] [address] [id number] [address] [place] [address] Sep, Chronic pain G89.29 [facility] [address] [id number] [address] [place] [address] Sep, Bipolar I disorder, most rec ent episode (or current) mixed, moderate F31.62 [place] [address] [id number] [address] [place] [address] Sep, [place] [address] [facility] [id number] [address] [place] [address] Sep, [place] [address] [facility] [id number] [address] [place] [address] Aug, Chronic pain G89.29 [facility] [address] [id number] [address] [place] [address] Aug, Bipolar I disorder, most rec ent episode (or current) mixed, moderate F31.62 [place] [address] [facility] [id number] [address] [place] [address] Aug, Bipolar I disorder, most rec ent episode (or current) mixed, moderate F31.62 and Mild cognitive impairment G31.84 [place] [address] [facility] [id number] [address] [place] [address] Jul, [facility] [address] [facility] [id number] [address] [place] [address] Jul, Chronic pain G89.29 [facility] [address] [facility] [id number] [address] [place] [address] Jul, Bipolar I disorder, most rec ent episode (or current) mixed, moderate F31.62 and Mild cognitive impairment G31.84 [place] [address] [facility] [id number] [address] [place] [address] Jul, Bipolar I disorder, most rec ent episode (or current) mixed, moderate F31.62 and MCI (mild cognitive impairment) G31.84 [facility] [address] [id number] [address] [place] [address] Jul, [facility] [address] [facility] [id number] [address] [place] [address] Jul, [facility] [address] [facility] [id number] [address] [place] [address] Jul, Bipolar I disorder, most rec ent episode (or current) mixed, moderate F31.62 [facility] [address] [facility] [id number] [address] [place] [address] Jul, Chronic pain G89.29 [facility] [address] [facility] [id number] [address] [place] [address] Jun, Bipolar I disorder, most rec ent episode (or current) mixed, moderate F31.62 [facility] [address] [facility] [id number] [address] [place] [address] Jun, Pre-procedure lab exam Z01.8 12 [facility] [address] [id number] [place] [address] [id number] Jun, [facility] [address] [facility] [id number] [address] [place] [address] Jun, [facility] [address] [facility] [id number] [address] [place] [address] Jun, [facility] [address] [facility] [id number] [address] [place] [address] Jun, Forgetfulness R68.89 ; Pre-s yncope R55 ; Localized edema R60.0 ; Other iron deficiency anemia D50.8 and BMI 50.0-59.9, adult Z68.43 [facility] [address] [facility] [id number] [address] [place] [address] Jun, Chronic pain G89.29 [facility] [address] [facility] [id number] [address] [place] [address] Jun, Chronic pain G89.29 [facility] [address] [facility] [id number] [address] [place] [address] Jun, Bipolar I disorder, most rec ent episode (or current) mixed, moderate F31.62 [facility] [address] [facility] [id number] [address] [place] [id number] May, Chronic pain G89.29 [facility] [address] [facility] [id number] [address] [place] [address] Apr, [facility] [address] [facility] [id number] [address] [place] [address] Apr, Chronic pain G89.29 [facility] [address] [place] [id number] [address] [place] [address] Apr, Primary osteoarthritis of ri t knee M17.11 [place] [address] [facility] [id number] [address] [place] [address] Mar, [place] [address] [facility] [id number] [address] [place] [address] Mar, BMI 50.0-59.9, adult Z68.43 and Bipolar disorder, in partial remission, most recent episode depressed F31.75 [place] [address] [place] [id number] [address] [place] [address] Mar, Diabetes E11.9 ; Pure hyperc holesterolemia E78.00 ; Essential hypertension I10 ; Nausea with vomiting, unspecified R11.2 and Headache, unspecified headache type R51 [place] [address] [place] [id number] [address] [place] [address] Mar, Bipolar I disorder, most rec ent episode (or current) mixed, moderate F31.62 [place] [address] [place] [id number] [address] [place] [address] Mar, Bipolar I disorder, most rec ent episode (or current) mixed, moderate F31.62 [facility] [address] [facility] [id number] [address] [place] [address] Mar, Chronic pain G89.29 [facility] [address] [facility] [id number] [address] [place] [address] Mar, Bipolar I disorder, most rec ent episode (or current) mixed, moderate F31.62 [facility] [address] [facility] [id number] [address] [place] [address] Feb, Bipolar I disorder, most rec ent episode (or current) mixed, moderate F31.62 [place] [address] [facility] [id number] [address] [place] [address] Feb, Chronic pain G89.29 [place] [address] [facility] [id number] [address] [place] [address] Feb, Decubitus ulcer of right josselin t, stage 3 L89.893 and BMI 50.0-59.9, adult Z68.43 [place] [address] [facility] [id number] [address] [place] [address] Feb, Bipolar I disorder, most rec ent episode (or current) mixed, moderate F31.62 [place] [address] [facility] [id number] [address] [place] [address] Feb, [place] [address] [facility] [id number] [address] [place] [address] January, [facility] [address] [facility] [id number] [address] [place] [address] January, Chronic pain G89.29 [facility] [address] [facility] [id number] [address] [place] [address] January, Bipolar I disorder, most rec ent episode (or current) mixed, moderate F31.62 [facility] [address] [facility] [id number] [address] [place] [address] January, Bipolar I disorder, most rec ent episode (or current) mixed, moderate F31.62 [place] [address] [facility] [id number] [address] [place] [address] Dec, Bipolar I disorder, most rec ent episode (or current) mixed, moderate F31.62 and BMI 50.0-59.9, adult Z68.43 [place] [address] [facility] [id number] [address] [place] [address] Dec, Bipolar I disorder, most rec ent episode (or current) mixed, moderate F31.62 [place] [address] [facility] [id number] [address] [place] [address] Dec, Chronic pain G89.29 [place] [address] [place] [id number] [address] [place] [address] Dec, DM neuro manif type II E11.4 9 ; Right flank pain R10.9 ; 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 ; Encounter for medication monitoring Z51.81 and BMI 50.0-59.9, adult Z68.43 [place] [address] [place] [id number] [address] [place] [address] Dec, Bipolar I disorder, most rec ent episode (or current) mixed, moderate F31.62 [place] [address] [place] [id number] [address] [place] [address] Nov, Bipolar I disorder, most rec ent episode (or current) mixed, moderate F31.62 [place] [address] [facility] [id number] [address] [place] [address] Nov, Chronic pain G89.29 [place] [address] [facility] [id number] [address] [place] [address] Nov, Bipolar I disorder, most rec ent episode (or current) mixed, moderate F31.62 [place] [address] [facility] [id number] [address] [place] [address] Nov, Hypokalemia E87.6 [place] [address] [place] [id number] [address] [place] [address] Nov, Bipolar I disorder, most rec ent episode (or current) mixed, moderate F31.62 [place] [address] [address] Oct, Chronic pain G89.29 [place] [address] [address] Oct, BMI 50.0-59.9, adult Z68.43 and Bipolar I disorder, most recent episode (or current) mixed, moderate F31.62 [place] [address] [address] Oct, Bipolar I disorder, most rec ent episode (or current) mixed, moderate F31.62 [place] [address] [address] Oct, [place] [address] [address] Oct, Hypokalemia E87.6 [place] [address] [address] Oct, DM neuro manif type II E11.4 9 [place] [address] [address] Oct, Bipolar I disorder, most rec ent episode (or current) mixed, moderate F31.62 [place] [address] [address] Oct, Bipolar I disorder, most rec ent episode (or current) mixed, moderate F31.62 [place] [address] [address] 14 Oct, 2017 Hyperkalemia E87.5 ; Falling R29.6 ; BMI 50.0-59.9, adult Z68.43 and Acute left ankle pain M25.572 [place] [address] [address] 08 Oct, 2017 DM neuro manif type II E11.4 9 [place] [address] [place] [id number] [place] [address] Oct, [facility] [address] [place] [id number] [address] [place] [address] Sep, Chronic pain G89.29 [place] [address] [place] [id number] [place] [address] Sep, [place] [address] [place] [id number] [place] [address] Sep, Bilateral primary osteoarthr itis of knee M17.0 [place] [address] [place] [id number] [place] [address] Sep, Generalized edema R60.1 [place] [address] [address] Sep, Bipolar I disorder, most rec ent episode (or current) mixed, moderate F31.62 [place] [address] [address] Sep, Hypoxia R09.02 ; Other hyper volemia E87.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 ; Anemia of chronic illness D63.8 and BMI 50.0- 59.9, adult Z68.43 [place] [address] [place] [id number] [address] [place] [address] Sep, [place] [address] [place] [id number] [place] [address] Sep, Bipolar I disorder, most rec ent episode (or current) mixed, moderate F31.62 [place] [address] [place] [id number] [address] [place] [address] Aug, Chronic pain G89.29 [place] [address] [place] [id number] [place] [address] Aug, Generalized edema R60.1 [facility] [address] [facility] [id number] [address] [place] [address] Aug, [facility] [address] [facility] [id number] [address] [place] [address] Aug, [facility] [address] [facility] [id number] [address] [place] [address] 14 Aug, 2017 Bipolar I disorder, most rec ent episode (or current) mixed, moderate F31.62 [place] [address] [facility] [id number] [address] [place] [address] Aug, Bipolar I disorder, most rec ent episode (or current) mixed, moderate F31.62 [place] [address] [place] [id number] [address] [place] [address] Aug, Chronic pain G89.29 [place] [address] [facility] [id number] [address] [place] [address] Jul, Bipolar I disorder, most rec ent episode (or current) mixed, moderate F31.62 [place] [address] [facility] [id number] [address] [place] [address] Jul, Bipolar I disorder, most rec ent episode (or current) mixed, moderate F31.62 and BMI 60.0-69.9, adult Z68.44 [place] [address] [place] [id number] [address] [place] [address] 16 Jul, 2017 Bipolar I disorder, most rec ent episode (or current) mixed, moderate F31.62 [place] [address] [facility] [id number] [address] [place] [address] 06 Jul, 2017 Chronic pain G89.29 [facility] [address] [facility] [id number] [address] [place] [address] 02 Jul, 2017 Bipolar I disorder, most rec ent episode (or current) mixed, moderate F31.62 [place] [address] [facility] [id number] [address] [place] [address] Jun, Polyneuropathy associated wi th underlying disease G63 and Diabetes E11.9 [facility] [address] [facility] [id number] [address] [place] [address] 16 Jun, 2017 Bipolar I disorder, most rec ent episode (or current) mixed, moderate F31.62 [facility] [address] [facility] [id number] [address] [place] [address] 09 Jun, 2017 Chronic pain G89.29 [facility] [address] [facility] [id number] [address] [place] [address] May, Bipolar I disorder, most rec ent episode (or current) mixed, moderate F31.62 [place] [address] [facility] [id number] [address] [place] [address] May, Bipolar I disorder, most rec ent episode (or current) mixed, moderate F31.62 [facility] [address] [facility] [id number] [address] [place] [address] May, Diabetic polyneuropathy asso ciated with type 2 diabetes mellitus E11.42 [facility] [address] [facility] [id number] [address] [place] [id number] 18 May, 2017 Bipolar I disorder, most rec ent episode (or current) mixed, moderate F31.62 [facility] [address] [facility] [id number] [address] [place] [id number] May, Bipolar I disorder, most rec ent episode (or current) mixed, moderate F31.62 [facility] [address] [facility] [id number] [address] [place] [id number] May, Chronic pain G89.29 [facility] [address] [facility] [id number] [address] [place] [id number] Apr, Bipolar I disorder, most rec ent episode (or current) mixed, moderate F31.62 [facility] [address] [facility] [id number] [address] [place] [id number] Apr, [facility] [address] [id number] [address] [place] [phone] Apr, Chronic pain G89.29 and DM n euro manif type II E11.49 [facility] [address] [id number] [address] [place] [id number] Apr, [facility] [address] [facility] [id number] [address] [place] [id number] Apr, Bipolar I disorder, most rec ent episode (or current) mixed, moderate F31.62 [facility] [address] [id number] [address] [place] [id number] Apr, Chronic pain G89.29 [facility] [address] [id number] [address] [place] [id number] Apr, Iliotibial band syndrome, le ft M76.32 [facility] [address] [facility] [id number] [address] [place] [id number] Apr, Bipolar I disorder, most rec ent episode (or current) mixed, moderate F31.62 [facility] [address] [id number] [address] [place] [id number] Mar, Bipolar I disorder, most rec ent episode (or current) mixed, moderate F31.62 [facility] [address] [id number] [address] [place] [id number] Mar, Bipolar I disorder, most rec ent episode (or current) mixed, moderate F31.62 [facility] [address] [id number] [address] [place] [id number] Mar, [facility] [address] [id number] [address] [place] [id number] Mar, Bipolar I disorder, most rec ent episode (or current) mixed, moderate F31.62 [facility] [address] [id number] [address] [place] [address] Mar, Chronic pain G89.29 [facility] [address] [facility] [id number] [address] [place] [address] Mar, Bipolar I disorder, most rec ent episode (or current) mixed, moderate F31.62 [facility] [address] [id number] [address] [place] [address] Mar, Bipolar I disorder, most rec ent episode (or current) mixed, moderate F31.62 [facility] [address] [id number] [address] [place] [address] Mar, Acute pain of left knee M25. 562 ; Left hip pain M25.552 ; Generalized edema R60.1 and Tongue swelling R22.0 [facility] [address] [id number] [address] [place] [address] Mar, [facility] [address] [id number] [address] [place] [address] Feb, Chronic pain G89.29 [facility] [address] [id number] [address] [place] [address] Feb, Diabetes E11.9 [facility] [address] [id number] [address] [place] [address] January, Chronic pain G89.29 [facility] [address] [id number] [address] [place] [address] January, [facility] [address] [id number] [address] [place] [address] January, Bipolar I disorder, most rec ent episode (or current) mixed, moderate F31.62 [facility] [address] [id number] [address] [place] [address] Dec, Bipolar I disorder, most rec ent episode (or current) mixed, moderate F31.62 [facility] [address] [id number] [address] [place] [address] Dec, Chronic pain G89.29 [facility] [address] [id number] [address] [place] [address] Dec, Bipolar I disorder, most rec ent episode (or current) mixed, moderate F31.62 [facility] [address] [id number] [address] [place] [address] Dec, Diabetes E11.9 ; Essential h ypertension I10 ; Chronic pain G89.29 and Morbid obesity E66.01 [facility] [address] [id number] [address] [place] [address] Dec, [facility] [address] [id number] [address] [place] [address] Dec, Bipolar I disorder, most rec ent episode (or current) mixed, moderate F31.62 [facility] [address] [id number] [address] [place] [address] Dec, Bipolar I disorder, most rec ent episode (or current) mixed, moderate F31.62 [facility] [address] [id number] [address] [place] [address] Nov, Chronic pain G89.29 [facility] [address] [id number] [address] [place] [address] Nov, Bipolar I disorder, most rec ent episode (or current) mixed, moderate F31.62 [facility] [address] [id number] [address] [place] [address] Nov, [facility] [address] [id number] [address] [place] [address] Nov, Bipolar I disorder, most rec ent episode (or current) mixed, moderate F31.62 [facility] [address] [id number] [address] [place] [address] Nov, Bipolar I disorder, most rec ent episode (or current) mixed, moderate F31.62 [facility] [address] [facility] [id number] [address] [place] [address] Nov, [facility] [address] [id number] [address] [place] [address] Nov, [facility] [address] [facility] [id number] [address] [place] [address] Nov, [facility] [address] [facility] [id number] [address] [place] [address] Oct, Chronic pain G89.29 [facility] [address] [facility] [id number] [address] [place] [address] Oct, Bipolar I disorder, most rec ent episode (or current) mixed, moderate F31.62 [facility] [address] [facility] [id number] [address] [place] [address] Oct, [facility] [address] [facility] [id number] [address] [place] [address] Oct, Chronic pain G89.29 ; Diabet es E11.9 ; Anxiety F41.9 and 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 [facility] [address] [facility] [id number] [address] [place] [address] Oct, [facility] [address] [facility] [id number] [address] [place] [address] Oct, Diabetes E11.9 [facility] [address] [facility] [id number] [address] [place] [address] Oct, Bipolar I disorder, most rec ent episode (or current) mixed, moderate F31.62 [facility] [address] [facility] [id number] [address] [place] [address] Sep, Chronic pain G89.29 [facility] [address] [facility] [id number] [address] [place] [address] Sep, Chronic pain G89.29 [facility] [address] [facility] [id number] [address] [place] [address] Aug, Chronic pain G89.29 [facility] [address] [facility] [id number] [address] [place] [address] Jul, [facility] [address] [facility] [id number] [address] [place] [address] Jul, Diabetes E11.9 [facility] [address] [facility] [id number] [address] [place] [address] Jul, Chronic pain G89.29 [facility] [address] [facility] [id number] [address] [place] [address] Jul, Bipolar I disorder, most rec ent episode (or current) mixed, moderate F31.62 [facility] [address] [place] [id number] [address] [place] [address] Jun, Bipolar I disorder, most rec ent episode (or current) mixed, moderate F31.62 [facility] [address] [place] [id number] [address] [place] [address] Jun, [facility] [address] [place] [id number] [address] [place] [address] Jun, Bipolar I disorder, most rec ent episode (or current) mixed, moderate F31.62 [facility] [place] [address] [facility] [id number] [address] [place] [address] May, Insomnia, unspecified type G 47.00 [facility] [place] [address] [facility] [id number] [address] [place] [address] May, Bipolar I disorder, most rec ent episode (or current) mixed, moderate F31.62 [facility] [place] [address] [place] [id number] [address] [place] [address] 14 May, 2016 [facility] [place] [address] [place] [id number] [address] [place] [address] May, Bipolar I disorder, most rec ent episode (or current) mixed, moderate F31.62 [place] [address] [facility] [id number] [address] [place] [address] May, Diabetes E11.9 and Essential hypertension I10 [place] [address] [facility] [id number] [address] [place] [address] Apr, Chronic pain G89.29 [facility] [place] [address] [place] [id number] [address] [place] [address] Apr, Bipolar I disorder, most rec ent episode (or current) mixed, moderate F31.62 [facility] [place] [address] [place] [id number] [address] [place] [address] Apr, [facility] [place] [address] [place] [id number] [address] [place] [address] Apr, [place] [address] [address] Mar, Chronic pain G89.29 ; Headac he, unspecified headache type R51 ; Neuropathy G62.9 ; Pain of right hip joint M25.551 and Essential hypertension I10 [place] [address] [place] [id number] [address] [place] [address] Mar, Chronic pain G89.29 [facility] [place] [address] [place] [id number] [address] [place] [address] Mar, Bipolar I disorder, most rec ent episode (or current) mixed, moderate F31.62 [facility] [address] [address] Feb, Bipolar I disorder, most rec ent episode (or current) mixed, moderate F31.62 and Insomnia, unspecified type G47.00 [facility] [place] [address] [place] [id number] [address] [place] [address] Feb, Chronic pain G89.29 [facility] [place] [address] [place] [id number] [address] [place] [address] Feb, Bipolar I disorder, most rec ent episode (or current) mixed, moderate F31.62 [facility] [place] [address] [place] [id number] [address] [place] [address] January, Bipolar I disorder, most rec ent episode (or current) mixed, moderate F31.62 [facility] [place] [address] [place] [id number] [address] [place] [address] January, Chronic pain G89.29 [facility] [address] [facility] [id number] [address] [place] [address] January, Chronic pain G89.29 and Esse ntial hypertension I10 [facility] [address] [facility] [id number] [address] [place] [address] January, Bipolar I disorder, most rec ent episode (or current) mixed, moderate F31.62 [facility] [address] [facility] [id number] [address] [place] [address] Dec, [facility] [address] [facility] [id number] [address] [place] [address] Dec, [facility] [address] [facility] [id number] [address] [place] [address] Dec, [facility] [address] [facility] [id number] [address] [place] [address] Dec, [facility] [address] [facility] [id number] [address] [place] [address] Nov, Reactive airway disease J45. 909 [facility] [address] [facility] [id number] [address] [place] [address] Nov, [facility] [address] [facility] [id number] [address] [place] [address] Nov, [facility] [address] [facility] [id number] [address] [place] [address] Nov, [facility] [address] [facility] [id number] [address] [place] [address] Nov, [facility] [address] [place] [id number] [address] [place] [address] Nov, Onychomycosis B35.1 ; Hammer toe M20.40 ; [place] or callus L84 and DM neuro manif type II E11.49 [facility] [address] [facility] [id number] [address] [place] [address] Nov, Chronic pain G89.29 ; Leukoc ytosis D72.829 and Diabetes E11.9 [place] [address] [address] Nov, [place] [address] [address] Oct, Bronchitis J40 [place] [address] [address] Oct, [place] [address] [address] Oct, [place] [address] [address] Oct, Mastoiditis, unspecified lat erality H70.90 and Type 2 diabetes mellitus with complication E11.8 [place] [address] [address] Sep, [place] [address] [address] Sep, Dysuria R30.0 ; Cough R05 ; Benign prostatic hyperplasia with lower urinary tract symptoms, unspecified morphology N40.1 ; Hypokalemia E87.6 and Eustachian tube dysfunction, unspecified laterality H69.80 [place] [address] [address] Sep, Moderate mixed bipolar I dis order F31.62 [place] [address] [address] Sep, Hypokalemia E87.6 [place] [address] [address] Sep, [place] [address] [address] Sep, Upper respiratory tract infe ction, unspecified type J06.9 [place] [address] [place] [address] Aug, [facility] [address] [id number] [address] [place] [address] Aug, Dysuria R30.0 [facility] [address] [id number] [address] [place] [address] Aug, [facility] [address] [id number] [address] [place] [address] Jul, [facility] [address] [id number] [address] [place] [address] Jul, [facility] [address] [id number] [address] [place] [address] Jul, [facility] [address] [id number] [address] [place] [address] Jul, [facility] [address] [facility] [id number] [address] [place] [address] Jun, [facility] [address] [id number] [address] [place] [address] Jun, [facility] [address] [id number] [address] [place] [address] Jun, [facility] [address] [facility] [id number] [address] [place] [address] May, [facility] [address] [facility] [id number] [address] [place] [address] May, Bipolar I disorder, most rec ent episode (or current) mixed, moderate 296.62 [facility] [address] [id number] [address] [place] [address] 16 May, 2015 [facility] [address] [facility] [id number] [address] [place] [address] May, Bipolar I disorder, most rec ent episode (or current) mixed, moderate 296.62 and Major depressive disorder, recurrent episode, severe, specified as with psychotic behavior 296.34 [facility] [address] [id number] [address] [place] [address] May, Bipolar I disorder, most rec ent episode (or current) mixed, moderate 296.62 [facility] [address] [facility] [id number] [address] [place] [address] May, [facility] [address] [facility] [id number] [address] [place] [address] Apr, [facility] [address] [facility] [id number] [address] [place] [address] Apr, [facility] [address] [facility] [id number] [address] [place] [address] Apr, Unspecified disorder of kidn ey and ureter 593.9 and Diabetes mellitus type 2, uncontrolled 250.02 [facility] [address] [facility] [id number] [address] [place] [address] Apr, [facility] [address] [facility] [id number] [address] [place] [address] Apr, [facility] [address] [facility] [id number] [address] [place] [address] Apr, [facility] [address] [facility] [id number] [address] [place] [address] Apr, [facility] [address] [facility] [id number] [address] [place] [address] Apr, Diabetes mellitus type II, u ncontrolled 250.02 [facility] [address] [id number] [address] [place] [address] Apr, [facility] [address] [id number] [address] [place] [address] Mar, [facility] [address] [facility] [id number] [address] [place] [address] Mar, [facility] [address] [facility] [id number] [address] [place] [address] Mar, [facility] [address] [place] [id number] [address] [place] [address] Mar, Major depressive disorder, r ecurrent episode, severe, specified as with psychotic behavior 296.34 and Bipolar I disorder, most recent episode (or current) mixed, moderate 296.62 [facility] [address] [address] Mar, Diabetes 250.00 ; Anuria 788 .5 ; Nausea and vomiting 787.01 and Diarrhea 787.91 [facility] [address] [address] Mar, Diabetes 250.00 [facility] [address] [address] Mar, [facility] [address] [address] Mar, Diabetes 250.00 [facility] [address] [address] Mar, [facility] [address] [address] Mar, [facility] [address] [address] Mar, [facility] [address] [address] Mar, [facility] [address] [place] [id number] [address] [place] [address] Mar, Bipolar I disorder, most rec ent episode (or current) mixed, moderate 296.62 and Major depressive disorder, recurrent episode, severe, specified as with psychotic behavior 296.34 [place] [address] [address] Mar, Magnesium deficiency 275.2 ; Hypokalemia 276.8 ; Nausea & vomiting 787.01 and Diabetes mellitus type 2, uncontrolled 250.02 [facility] [address] [place] [address] [address] Feb, [place] [address] [address] Feb, Bipolar I disorder, most rec ent episode (or current) mixed, moderate 296.62 [place] [address] [address] Feb, Nausea and vomiting 787.01 ; Left elbow pain 719.42 ; Anuria 788.5 and Diabetes 250.00 [place] [address] [address] Feb, [place] [address] [address] Feb, Hypopotassemia 276.8 and Hyp okalemia 276.8 [place] [address] [address] Feb, Hypopotassemia 276.8 and Hyp okalemia 276.8 [place] [address] [address] Feb, Seborrheic keratoses 702.19 [place] [address] [address] Feb, Hypopotassemia 276.8 and Low magnesium levels 275.2 [place] [address] [address] January, [place] [address] [address] January, [place] [address] [address] January, [facility] [address] [address] January, Scalp lesion 709.9 [place] [address] [address] January, [facility] [address] [id number] [address] [place] [address] Dec, Tear of medial cartilage or meniscus of knee, current 836.0 and 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 [facility] [address] [id number] [address] [place] [address], [place] [address] Dec, [facility] [address] [id number] [address] [place] [address] Dec, [facility] [address] [id number] [address] [place] [id number] Dec, Squamous cell carcinoma, 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 [facility] [address] [id number] [address] [place] [id number] 14 Dec, 2014 [facility] [address] [id number] [address] [place] [phone] Dec, [facility] [address] [id number] [address] [place] [id number] Nov, [facility] [address] [id number] [address] [place] [id number] Nov, [facility] [address] [id number] [address] [place] [address] Nov, [facility] [address] [id number] [address] [place] [id number] Nov, [facility] [address] [id number] [address] [place] [address] Nov, [facility] [address] [id number] [address] [place] [id number] Nov, [facility] [address] [id number] [address] [place] [id number] Nov, [facility] [address] [id number] [address] [place] [id number] Nov, [facility] [address] [id number] [address] [place] [address] [place] [address] Nov, 2014 [facility] [address] [id number] [address] [place] [address], [place] [address] Nov, [facility] [address] [id number] [address] [place] [address], [place] [address] Nov, [facility] [address] [id number] [address] [place] [address], [place] [address] Nov, [facility] [address] [id number] [address] [place] [address], [place] [address] Oct, 2014 [facility] [address] [id number] [address] [place] [address], [place] [address] Oct, 2014 [facility] [address] [id number] [address] [place] [address], [place] [address] Oct, 2014 [facility] [address] [id number] [address] [place] [address], [place] [address] Oct, 2014 [facility] [address] [id number] [address] [place] [address], [place] [address] Oct, 2014 [facility] [address] [id number] [address] [place] [address], [place] [address] Oct, 2014 [facility] [address] [id number] [address] [place] [address], [place] [address] Oct, [facility] [address] [id number] [address] [place] [address], [place] [address] Oct, [facility] [address] [id number] [address] [place] [address], [place] [address] Oct, [facility] [address] [id number] [address] [place] [address], [place] [address] Sep, [facility] [address] [id number] [address] [place] [address], [place] [address] Sep, [facility] [address] [id number] [address] [place] [address], [place] [address] Sep, [facility] [address] [id number] [address] [place] [address], [place] [address] Sep, [facility] [address] [id number] [address] [place] [address], [place] [address] Sep, [facility] [address] [id number] [address] [place] [address], [place] [address] Sep, [facility] [address] [id number] [address] [place] [address], [place] [address] Sep, [facility] [address] [id number] [address] [place] [address], [place] [address] Sep, [facility] [address] [id number] [address] [place] [address], [place] [address] Sep, [facility] [address] [id number] [address] [place] [address], [place] [address] Sep, [facility] [address] [id number] [address] [place] [address], [place] [address] Sep, [facility] [address] [id number] [address] [place] [address], [place] [address] Sep, [facility] [address] [id number] [address] [place] [address], [place] [address] Sep, [facility] [address] [id number] [address] [place] [address], [place] [address] Sep, [facility] [address] [id number] [address] [place] [address], [place] [address] Sep, [facility] [address] [id number] [address] [place] [address], [place] [address] Sep, [facility] [address] [id number] [address] [place] [address], [place] [address] Aug, [facility] [address] [id number] [address] [place] [address], [place] [address] Aug, [facility] [address] [id number] [address] [place] [address], [place] [address] Aug, [facility] [address] [id number] [facility] [place] [address] Aug, [facility] [address] [id number] [facility] [place] [address] Aug, [facility] [address] [id number] [facility] [place] [address] Aug, [facility] [address] [id number] [facility] [place] [address] Aug, [facility] [address] [id number] [address] [place] [address], [place] [address] Aug, [facility] [address] [id number] [address] [place] [address], [place] [address] Aug, [facility] [address] [id number] [address] [place] [address], [place] [address] Aug, [facility] [address] [id number] [address] [place] [address], [place] [address] Aug, [facility] [address] [place] [id number] Aug, [facility] [address] [id number] [address] [place] [address], [place] [address] Aug, [facility] [address] [id number] [address] [place] [address], [place] [address] Aug, [facility] [address] [id number] [address] [place] [address], [place] [address] Aug, [facility] [address] [id number] [address] [place] [address], [place] [address] Aug, [facility] [address] [id number] [facility] [place] [address] Aug, [facility] [address] [id number] [facility] [place] [address] Aug, [facility] [address] [id number] [address] [place] [address], [place] [address] 08 Aug, 2014 [facility] [address] [id number] [address] [place] [address], [place] [address] Aug, [facility] [address] [id number] [address] [place] [address], [place] [address] Aug, [facility] [address] [id number] [address] [place] [address], [place] [address] Aug, [facility] [address] [id number] [address] [place] [address], [place] [address] Aug, [facility] [address] [id number] [address] [place] [address], [place] [address] Aug, [facility] [address] [id number] [address] [place] [address], [place] [address] Aug, [facility] [address] [id number] [address] [place] [address], [place] [address] Aug, [facility] [address] [id number] [address] [place] [address], [place] [address] Aug, [facility] [address] [id number] [address] [place] [address], [place] [address] Aug, [facility] [address] [id number] [address] [place] [address], [place] [address] Aug, [facility] [address] [id number] [address] [place] [address], [place] [address] Aug, [facility] [address] [id number] [address] [place] [address], [place] [address] Jul, [facility] [address] [id number] [address] [place] [address], [place] [address] Jul, [facility] [address] [id number] [address] [place] [address], [place] [address] Jul, [facility] [address] [id number] [address] [place] [address], [place] [address] Jul, [facility] [address] [id number] [address] [place] [address], [place] [address] Jul, [facility] [address] [id number] [address] [place] [address], [place] [address] Jul, [facility] [address] [id number] [address] [place] [address], [place] [address] Jul, [facility] [address] [id number] [address] [place] [address], [place] [address] Jul, [facility] [address] [id number] [address] [place] [address], [place] [address] Jul, [facility] [address] [id number] [address] [place] [address], [place] [address] Jul, [facility] [address] [id number] [address] [place] [address], [place] [address] Jun, [facility] [address] [id number] [address] [place] [address], [place] [address] Jun, [facility] [address] [id number] [address] [place] [address], [place] [address] Jun, [facility] [address] [id number] [address] [place] [address], [place] [address] Jun, [facility] [address] [id number] [address] [place] [address], [place] [address] Jun, [facility] [address] [id number] [address] [place] [address], [place] [address] Jun, [facility] [address] [id number] [address] [place] [address], [place] [address] Jun, [facility] [address] [id number] [address] [place] [address], [place] [address] Jun, [facility] [address] [id number] [address] [place] [address], [place] [address] Jun, [facility] [address] [id number] [address] [place] [address] [place] [address] Jun, 2013 [facility] [address] [id number] [address] [place] [address], [place] [address] 29 Sep, 2013 [facility] [address] [id number] [address] [place] [address], [place] [address] 29 Sep, 2013 [facility] [address] [id number] [address] [place] [address], [place] [address] 26 Sep, 2013 [facility] [address] [id number] [address] [place] [address], [place] [address] 26 Sep, 2013 [facility] [address] [id number] [address] [place] [address], [place] [address] 17 Sep, 2013 [facility] [address] [id number] [address] [place] [address], [place] [address] 17 Sep, 2013 [facility] [address] [id number] [address] [place] [address], [place] [address] 15 Sep, 2013 [facility] [address] [id number] [address] [place] [address], [place] [address] 15 Sep, 2013 [facility] [address] [id number] [address] [place] [address], [place] [address] 15 Sep, 2013 [facility] [address] [id number] [address] [place] [address], [place] [address] 15 Sep, 2013 [facility] [address] [id number] [address] [place] [address], [place] [address] 10 Sep, 2013 [facility] [address] [id number] [address] [place] [address], [place] [address] 10 Sep, 2013 [facility] [address] [id number] [address] [place] [address], [place] [address] 09 Sep, 2013 [facility] [address] [id number] [address] [place] [address], [place] [address] 09 Sep, 2013 [facility] [address] [id number] [address] [place] [address], [place] [address] 04 Sep, 2013 [facility] [address] [id number] [facility] [place] [address] May, [facility] [address] [id number] [facility] [place] [address] Apr, [facility] [address] [id number] [facility] [place] [address] Apr, [facility] [address] [id number] [address] [place] [address], [place] [address] Apr, [facility] [address] [id number] [address] [place] [address], [place] [address] Apr, [facility] [address] [id number] [address] [place] [address], [place] [address] Apr, [facility] [address] [id number] [address] [place] [address], [place] [address] Apr, [facility] [address] [id number] [address] [place] [address], [place] [address] Apr, [facility] [address] [id number] [address] [place] [address], [place] [address] Apr, [facility] [address] [id number] [address] [place] [address], [place] [address] Apr, [facility] [address] [id number] [address] [place] [address], [place] [address] Apr, [facility] [address] [id number] [address] [place] [address], [place] [address] Apr, [facility] [address] [id number] [address] [place] [address], [place] [address] Apr, [facility] [address] [id number] [address] [place] [address], [place] [address] Apr, [facility] [address] [id number] [address] [place] [address], [place] [address] Apr, [facility] [address] [id number] [address] [place] [address], [place] [address] Apr, [facility] [address] [id number] [facility] [place] [address] Mar, [facility] [address] [id number] [address] [place] [address], [place] [address] Mar, [facility] [address] [id number] [address] [place] [address], [place] [address] Mar, [facility] [address] [id number] [address] [place] [address], [place] [address] Mar, [facility] [address] [id number] [address] [place] [address], [place] [address] Mar, [facility] [address] [id number] [address] [place] [address], [place] [address] Mar, [facility] [address] [id number] [address] [place] [address], [place] [address] Mar, [facility] [address] [id number] [address] [place] [address], [place] [address] Mar, [facility] [address] [id number] [address] [place] [address], [place] [address] Mar, [facility] [address] [id number] [address] [place] [address], [place] [address] Mar, [facility] [address] [id number] [address] [place] [address], [place] [address] Mar, [facility] [address] [id number] [address] [place] [address], [place] [address] Mar, 2013 [facility] [address] [id number] [address] [place] [address], [place] [address] Mar, [facility] [address] [id number] [address] [place] [address], [place] [address] Mar, [facility] [address] [id number] [address] [place] [address], [place] [address] Mar, 2013 [facility] [address] [id number] [facility] [address] Mar, [facility] [address] [id number] [facility] [place] [address] Mar, [facility] [address] [id number] [facility] [place] [address] Mar, [facility] [address] [id number] [address] [place] [address], [place] [address] Feb, [facility] [address] [id number] [address] [place] [address], [place] [address] Feb, [facility] [address] [id number] [address] [place] [address], [place] [address] Feb, [facility] [address] [id number] [address] [place] [address], [place] [address] Feb, [facility] [address] [id number] [address] [place] [address], [place] [address] Feb, [facility] [address] [id number] [address] [place] [address], [place] [address] Feb, [facility] [address] [id number] [address] [place] [address], [place] [address] Feb, [facility] [address] [id number] [address] [place] [address], [place] [address] Feb, [facility] [address] [id number] [address] [place] [address], [place] [address] Feb, [facility] [address] [id number] [address] [place] [address], [place] [address] Feb, [facility] [address] [id number] [address] [place] [address], [place] [address] Feb, [facility] [address] [id number] [address] [place] [address], [place] [address] Feb, [facility] [address] [id number] [address] [place] [address], [place] [address] Feb, [facility] [address] [id number] [address] [place] [address], [place] [address] Feb, [facility] [address] [id number] [address] [place] [address], [place] [address] January, [facility] [address] [id number] [address] [place] [address], [place] [address] January, [facility] [address] [id number] [address] [place] [address], [place] [address] January, [facility] [address] [id number] [address] [place] [address], [place] [address] January, [facility] [address] [id number] [address] [place] [address], [place] [address] January, [facility] [address] [id number] [address] [place] [address], [place] [address] January, [facility] [address] [id number] [address] [place] [address], [place] [address] January, [facility] [address] [id number] [address] [place] [address], [place] [address] January, [facility] [address] [id number] [address] [place] [address], [place] [address] January, [facility] [address] [id number] [address] [place] [address], [place] [address] January, [facility] [address] [id number] [address] [place] [address], [place] [address] January, [facility] [address] [id number] [address] [place] [address], [place] [address] January, [facility] [address] [id number] [address] [place] [address], [place] [address] January, [facility] [address] [id number] [address] [place] [address], [place] [address] January, [facility] [address] [id number] [address] [place] [address], [place] [address] Dec, [facility] [address] [id number] [facility] [place] [address] Dec, [facility] [address] [id number] [address] [place] [address], [place] [address] Dec, [facility] [address] [id number] [address] [place] [address], [place] [address] Dec, [facility] [address] [id number] [address] [place] [address], [place] [address] Dec, [facility] [address] [id number] [address] [place] [address], [place] [address] Dec, [facility] [address] [id number] [address] [place] [address], [place] [address] Dec, [facility] [address] [id number] [address] [place] [address], [place] [address] Dec, [facility] [address] [id number] [address] [place] [address], [place] [address] Dec, [facility] [address] [id number] [address] [place] [address], [place] [address] Dec, [facility] [address] [id number] [address] [place] [address], [place] [address] Nov, [facility] [address] [id number] [address] [place] [address], [place] [address] Nov, [facility] [address] [id number] [address] [place] [address], [place] [address] Nov, [facility] [address] [id number] [address] [place] [address], [place] [address] Nov, [facility] [address] [id number] [address] [place] [address], [place] [address] Nov, [facility] [address] [id number] [address] [place] [address], [place] [address] Nov, [facility] [address] [id number] [address] [place] [address], [place] [address] Nov, [facility] [address] [id number] [address] [place] [address], [place] [address] Nov, [facility] [address] [id number] [address] [place] [address], [place] [address] Nov, [facility] [address] [id number] [address] [place] [address], [place] [address] Nov, [facility] [address] [id number] [address] [place] [address], [place] [address] Oct, [facility] [address] [id number] [address] [place] [address], [place] [address] Oct, [facility] [address] [id number] [address] [place] [address], [place] [address] Oct, [facility] [address] [id number] [address] [place] [address], [place] [address] Oct, [facility] [address] [id number] [address] [place] [address], [place] [address] Oct, [facility] [address] [id number] [address] [place] [address], [place] [address] Oct, [facility] [address] [id number] [address] [place] [address], [place] [address] Oct, [facility] [address] [id number] [address] [place] [address], [place] [address] Oct, [facility] [address] [id number] [address] [place] [address], [place] [address] Oct, [facility] [address] [id number] [address] [place] [address], [place] [address] Oct, [facility] [address] [id number] [address] [place] [address], [place] [address] Oct, [facility] [address] [id number] [address] [place] [id number] 04 Oct, 2013 [facility] [address] [id number] [address] [place] [address], [place] [address] Oct, [facility] [address] [id number] [address] [place] [address], [place] [address] Oct, [facility] [address] [id number] [address] [place] [address], [place] [address] Sep, [facility] [address] [id number] [address] [place] [address], [place] [address] Sep, [facility] [address] [id number] [address] [place] [address], [place] [address] Sep, [facility] [address] [id number] [address] [place] [address], [place] [address] Sep, [facility] [address] [id number] [address] [place] [address], [place] [address] Sep, [facility] [address] [id number] [address] [place] [address], [place] [address] Sep, [facility] [address] [id number] [address] [place] [address], [place] [address] Sep, [facility] [address] [id number] [address] [place] [address], [place] [address] Sep, [facility] [address] [id number] [address] [place] [address], [place] [address] Sep, [facility] [address] [id number] [address] [place] [address], [place] [address] Sep, [facility] [address] [id number] [address] [place] [address], [place] [address] Aug, [facility] [address] [id number] [address] [place] [address], [place] [address] Aug, [facility] [address] [id number] [address] [place] [address], [place] [address] Jul, [facility] [address] [id number] [address] [place] [address], [place] [address] Jul, [facility] [address] [id number] [address] [place] [address], [place] [address] Jul, [facility] [address] [id number] [address] [place] [address], [place] [address] Jul, [facility] [address] [id number] [address] [place] [address], [place] [address] Jul, [facility] [address] [id number] [address] [place] [address], [place] [address] Jul, [facility] [address] [id number] [address] [place] [address], [place] [address] Jul, [facility] [address] [id number] [address] [place] [address], [place] [address] Jul, [facility] [address] [id number] [address] [place] [address], [place] [address] Jul, [facility] [address] [id number] [address] [place] [address], [place] [address] Jul, [facility] [address] [id number] [address] [place] [address], [place] [address] Jul, [facility] [address] [id number] [address] [place] [address], [place] [address] Jul, [facility] [address] [id number] [address] [place] [address], [place] [address] Jul, [facility] [address] [id number] [address] [place] [address], [place] [address] Jul, [facility] [address] [id number] [address] [place] [address], [place] [address] Jul, [facility] [address] [id number] [address] [place] [address], [place] [address] Jul, [facility] [address] [id number] [address] [address] Jul, [facility] [address] [id number] [address] [place] [address], [place] [address] Jul, [facility] [address] [id number] [address] [place] [address], [place] [address] Jul, [facility] [address] [id number] [address] [place] [address], [place] [address] Jun, 2012 [facility] [address] [id number] [address] [place] [address] Jun, 2012 [facility] [address] [id number] [address] [place] [address], [place] [address] Jun, 2012 [facility] [address] [id number] [address] [place] [address] Jun, 2012 [facility] [address] [id number] [address] [place] [address] Jun, 2012 [facility] [address] [id number] [address] [place] [address] Jun, [facility] [address] [id number] [address] [place] [address] Jun, [facility] [address] [id number] [address] [place] [address] Jun, [facility] [address] [id number] [address] [place] [address] Jun, [facility] [address] [id number] [address] [place] [address] Jun, [facility] [address] [id number] [address] [place] [address], [place] [address] Jun, [facility] [address] [id number] [address] [place] [address] May, [facility] [address] [id number] [address] [place] [address] May, [facility] [address] [id number] [address] [place] [address], [place] [address] 19 May, 2012 [facility] [address] [id number] [address] [place] [address], [place] [address] 17 May, 2012 [facility] [address] [id number] [address] [place] [address], [place] [address] 11 May, 2013 [facility] [address] [id number] [address] [place] [address], [place] [address] 10 May, 2012 [facility] [address] [id number] [address] [place] [address], [place] [address] 09 May, 2013 [facility] [address] [id number] [address] [place] [address], [place] [address] 05 May, 2013 [facility] [address] [id number] [address] [place] [address], [place] [address] Apr, [facility] [address] [id number] [address] [place] [address], [place] [address] Apr, [facility] [address] [id number] [address] [place] [address], [place] [address] Apr, [facility] [address] [id number] [address] [place] [address], [place] [address] Apr, [facility] [address] [id number] [address] [place] [address], [place] [address] Apr, [facility] [address] [id number] [address] [place] [address], [place] [address] Mar, [facility] [address] [id number] [address] [place] [address], [place] [address] Mar, [facility] [address] [id number] [address] [place] [address], [place] [address] Mar, [facility] [address] [id number] [address] [place] [address], [place] [address] Mar, [facility] [address] [id number] [address] [place] [address], [place] [address] Mar, [facility] [address] [id number] [address] [place] [address], [place] [address] Mar, [facility] [address] [id number] [address] [place] [address], [place] [address] Mar, [facility] [address] [id number] [address] [place] [address], [place] [address] Mar, [facility] [address] [id number] [address] [place] [address], [place] [address] Feb, [facility] [address] [id number] [address] [place] [address], [place] [address] Feb, [facility] [address] [id number] [address] [place] [address], [place] [address] January, [facility] [address] [id number] [address] [place] [address], [place] [address] January, [facility] [address] [id number] [address] [place] [address], [place] [address] Dec, [facility] [address] [id number] [address] [place] [address], [place] [address] Dec, [facility] [address] [id number] [address] [place] [address], [place] [address] Nov, [facility] [address] [id number] [address] [place] [address], [place] [address] Nov, [facility] [address] [id number] [address] [place] [address], [place] [address] Nov, [facility] [address] [id number] [address] [place] [address], [place] [address] Nov, [facility] [address] [id number] [address] [place] [address], [place] [address] Oct, [facility] [address] [id number] [address] [place] [address], [place] [address] Oct, [facility] [address] [id number] [address] [place] [address], [place] [address] 26 Oct, 2012 [facility] [address] [id number] [address] [place] [address], [place] [address] 26 Oct, 2012 [facility] [address] [id number] [address] [place] [address], [place] [address] 16 Oct, 2012 [facility] [address] [id number] [address] [place] [address], [place] [address] 14 Oct, 2012 [facility] [address] [id number] [address] [place] [address], [place] [address] 08 Oct, 2012 [facility] [address] [id number] [address] [place] [address], [place] [address] 07 Oct, 2012 [facility] [address] [id number] [address] [place] [address], [place] [address] 03 Oct, 2012 [facility] [address] [id number] [address] [place] [address], [place] [address] 30 Sep, 2012 [facility] [address] [id number] [address] [place] [address], [place] [address] Sep, [facility] [address] [id number] [address] [place] [address], [place] [address] Sep, [facility] [address] [id number] [address] [place] [address], [place] [address] Sep, [facility] [address] [id number] [address] [place] [address], [place] [address] Sep, [facility] [address] [id number] [address] [place] [address], [place] [address] Sep, [facility] [address] [id number] [address] [place] [address], [place] [address] 09 Sep, 2012 [facility] [address] [id number] [address] [place] [address], [place] [address] 08 Sep, 2012 [facility] [address] [id number] [address] [place] [address], [place] [address] Aug, [facility] [address] [id number] [address] [place] [address], [place] [address] Aug, [facility] [address] [id number] [address] [place] [address], [place] [address] Aug, [facility] [address] [id number] [address] [place] [address], [place] [address] Aug, [facility] [address] [id number] [address] [place] [address], [place] [address] Aug, [facility] [address] [id number] [address] [place] [address], [place] [address] Aug, [facility] [address] [id number] [address] [place] [address], [place] [address] Aug, [facility] [address] [id number] [address] [place] [address], [place] [address] Aug, [facility] [address] [id number] [address] [place] [address], [place] [address] Jul, [facility] [address] [id number] [address] [place] [address], [place] [address] Jul, [facility] [address] [id number] [address] [place] [address], [place] [address] Jul, [facility] [address] [id number] [address] [place] [address], [place] [address] Jul, [facility] [address] [id number] [address] [place] [address] Jul, [facility] [address] [id number] [address] [place] [address], [place] [address] Jul, [facility] [address] [id number] [address] [place] [address], [place] [address] Jun, [facility] [address] [id number] [address] [place] [address], [place] [address] Jun, [facility] [address] [id number] [address] [place] [address] Jun, [facility] [address] [id number] [address] [place] [address], [place] [address] 23 Jun, 2012 [facility] [address] [id number] [address] [place] [address], [place] [address] Jun, [facility] [address] [id number] [address] [place] [address], [place] [address] 19 Jun, 2012 [facility] [address] [id number] [address] [place] [address], [place] [address] 19 Jun, 2012 [facility] [address] [id number] [address] [place] [address], [place] [address] 10 Jun, 2012 [facility] [address] [id number] [address] [place] [address], [place] [address] 10 Jun, 2012 [facility] [address] [id number] [address] [place] [address], [place] [address] 26 May, 2012 [facility] [address] [id number] [address] [place] [address], [place] [address] 24 May, 2012 [facility] [address] [id number] [address] [place] [address], [place] [address] 18 May, 2012 [facility] [address] [id number] [address] [place] [address], [place] [address] 30 Apr, 2012 [facility] [address] [id number] [address] [place] [address], [place] [address] 29 Apr, 2012 [facility] [address] [id number] [address] [place] [address], [place] [address] 18 Apr, 2012 [facility] [address] [id number] [address] [place] [address], [place] [address] 14 Apr, 2012 [facility] [address] [id number] [address] [place] [address], [place] [address] 10 Apr, 2012 [facility] [address] [id number] [address] [place] [address], [place] [address] 07 Apr, 2012 [facility] [address] [id number] [facility] [place] [address] Mar, [facility] [address] [id number] [address] [place] [address], [place] [address] Mar, [facility] [address] [id number] [address] [place] [address], [place] [address] Mar, [facility] [address] [id number] [address] [place] [address], [place] [address] Mar, [facility] [address] [id number] [address] [place] [address], [place] [address] Feb, [facility] [address] [id number] [address] [place] [address], [place] [address] Feb, [facility] [address] [id number] [address] [place] [address], [place] [address] Feb, [facility] [address] [id number] [address] [place] [address], [place] [address] Feb, [facility] [address] [id number] [address] [place] [address], [place] [address] Feb, [facility] [address] [id number] [address] [place] [address], [place] [address] January, [facility] [address] [id number] [address] [place] [address], [place] [address] January, [facility] [address] [id number] [address] [place] [address], [place] [address] January, [facility] [address] [id number] [address] [place] [address], [place] [address] January, [facility] [address] [id number] [address] [place] [address], [place] [address] January, [facility] [address] [id number] [address] [place] [address], [place] [address] January, [facility] [address] [id number] [address] [place] [address], [place] [address] 24 Dec, 2011 [facility] [address] [id number] [address] [place] [address], [place] [address] 24 Dec, 2011 [facility] [address] [id number] [address] [place] [address], [place] [address] 17 Dec, 2011 [facility] [address] [id number] [address] [place] [address], [place] [address] 09 Dec, 2011 [facility] [address] [id number] [address] [place] [address], [place] [address] 06 Dec, 2011 [facility] [address] [id number] [address] [place] [address], [place] [address] 27 Nov, 2011 [facility] [address] [id number] [address] [place] [address], [place] [address] 14 Nov, 2011 [facility] [address] [id number] [address] [place] [address], [place] [address] Nov, [facility] [address] [id number] [address] [place] [address], [place] [address] 07 Nov, 2011 [facility] [address] [id number] [address] [place] [address], [place] [address] 29 Oct, 2011 [facility] [address] [id number] [address] [place] [address], [place] [address] 28 Oct, 2011 [facility] [address] [id number] [address] [place] [address], [place] [address] 24 Oct, 2011 [facility] [address] [id number] [address] [place] [address], [place] [address] 13 Oct, 2011 [facility] [address] [id number] [address] [place] [address], [place] [address] 08 Oct, 2011 [facility] [address] [id number] [address] [place] [address], [place] [address] 31 Sep, 2011 [facility] [address] [id number] [address] [place] [address], [place] [address] 30 Sep, 2011 [facility] [address] [id number] [address] [place] [address], [place] [address] Sep, [facility] [address] [id number] [address] [place] [address], [place] [address] Sep, [facility] [address] [id number] [address] [place] [address], [place] [address] Sep, [facility] [address] [id number] [address] [place] [address], [place] [address] Sep, [facility] [address] [id number] [address] [place] [address], [place] [address] Aug, [facility] [address] [id number] [address] [place] [address], [place] [address] Aug, [facility] [address] [id number] [address] [place] [address], [place] [address] Aug, [facility] [address] [id number] [address] [place] [address], [place] [address] Jul, [facility] [address] [id number] [address] [place] [address], [place] [address] Jul, [facility] [address] [id number] [address] [place] [address], [place] [address] Jul, [facility] [address] [id number] [address] [place] [address], [place] [address] Jul, [facility] [address] [id number] [address] [place] [address], [place] [address] Jun, [facility] [address] [id number] [address] [place] [address], [place] [address] Jun, [facility] [address] [id number] [address] [place] [address], [place] [address] Jun, [facility] [address] [id number] [address] [place] [address], [place] [address] Jun, [facility] [address] [id number] [address] [place] [address], [place] [address] Jun, [facility] [address] [id number] [address] [place] [address], [place] [address] 10 Jun, 2011 [facility] [address] [id number] [address] [place] [address], [place] [address] 11 Mar, 2011 [facility] [address] [id number] [address] [place] [address], [place] [address] 18 Dec, 2010 [facility] [address] [id number] [address] [place] [address], [place] [address] 11 Dec, 2010 [facility] [address] [id number] [address] [place] [address], [place] [address] 18 Nov, 2010 [facility] [address] [id number] [address] [place] [address], [place] [address] 16 Nov, 2010 [facility] [address] [id number] [address] [place] [address], [place] [address] 10 Sep, 2010 [facility] [address] [id number] [address] [place] [address], [place] [address] 31 Aug, 2010 [facility] [address] [id number] [address] [place] [address], [place] [address] 29 Aug, 2010 [facility] [address] [id number] [address] [place] [address], [place] [address] 29 Aug, 2010 [facility] [address] [id number] [address] [place] [address], [place] [address] 29 Aug, 2010 [facility] [address] [id number] [address] [place] [address], [place] [address] 27 Aug, 2010 [facility] [address] [id number] [address] [place] [address], [place] [address] 14 Aug, 2010 [facility] [address] [id number] [address] [place] [address], [place] [address] 08 Aug, 2010 [facility] [address] [id number] [address] [place] [address], [place] [address] 08 Aug, 2010 [facility] [address] [id number] [address] [place] [address] [place] [address] 07 Aug, 2010 [facility] [address] [id number] [address] [place] [address], [place] [address] Aug, [facility] [address] [id number] [address] [place] [address] Aug, [facility] [address] [id number] [address] [place] [address], [place] [address] Aug, [facility] [address] [id number] [address] [place] [address], [place] [address] Jul, [facility] [address] [id number] [address] [place] [address], [place] [address] Jul, [facility] [address] [id number] [address] [place] [address], [place] [address] Jul, [facility] [address] [id number] [address] [place] [address], [place] [address] Jul, [facility] [address] [id number] [address] [place] [address], [place] [address] Jul, [facility] [address] [id number] [address] [place] [address], [place] [address] Jul, [facility] [address] [id number] [address] [place] [address], [place] [address] Jun, [facility] [address] [id number] [address] [place] [address], [place] [address] Jun, [facility] [address] [id number] [address] [place] [address] Jun, [facility] [address] [id number] [address] [place] [address] Jun, [facility] [address] [id number] [address] [place] [address] Apr, [facility] [address] [id number] [address] [place] [id number] Mar, [facility] [address] [id number] [address] [place] [address], [place] [address] 17 Feb, 2010 [facility] [address] [id number] [address] [place] [address], [place] [address] January, [facility] [address] [id number] [address] [place] [address], [place] [address] 15 Dec, 2009 [facility] [address] [id number] [address] [place] [address], [place] [address] Nov, [facility] [address] [id number] [address] [place] [address], [place] [address] 31 Aug, 2009 [facility] [address] [id number] [address] [place] [address], [place] [address] Aug, [facility] [address] [id number] [address] [place] [address], [place] [address] Aug, [facility] [address] [id number] [address] [place] [address], [place] [address] Jul, [facility] [address] [id number] [address] [place] [address], [place] [address] Jul, [facility] [address] [id number] [address] [place] [address], [place] [address] Jul, [facility] [address] [id number] [address] [place] [address], [place] [address] 30 Jun, 2009 [facility] [address] [id number] [address] [place] [address], [place] [address] 29 Jun, 2009 [facility] [address] [id number] [address] [place] [address], [place] [address] Jun, [facility] [address] [id number] [address] [place] [address], [place] [address] 22 Jun, 2009 [facility] [address] [id number] [address] [place] [id number] Jun, [facility] [address] [id number] [address] [place] [id number] Jun, [facility] [address] [facility] [id number] [address] [place] [phone] Apr, [facility] [address] [facility] [id number] [address] [place] [id number] Apr, [facility] [address] [facility] [id number] [address] [place] [id number] Feb, [facility] [address] [facility] [id number] [address] [place] [phone] January, [facility] [address] [facility] [id number] [address] [place] [phone] Dec, IMMUNIZATIONS No Known Immunizations SOCIAL HISTORY Never Assessed REASON FOR VISIT EMR-[facility] PLAN OF CARE VITAL SIGNS [...] Medical History skin cancer-basal cell R synagogue (removed ) Medical History Arthritis Medical History [...] [facility] inpatient mental health ea rly 1999's Hospitalization History hyperkalemia 10/2017 Hospitalization History fluid in lung
--- OUTSIDE RECORDS SUMMARY | 2020-03-01 17:40 | XMS REPORT ---
Author Author Michele Verduzco Doctor Organization [facility] Address Unknown Phone Unavailable Care Team Providers Care Spa Coordinator Name Role Phone Migration, Doctor Unavailable Unavailable PROBLEMS Type Condition ICD9-CM Code JHI60-CS Code Onset Dates Condition S tatus SNOMED Code Problem Hypokalemia E87.6 Active 45519998 Problem Cough R05 Active 02827499 Problem Dysuria R30.0 Active 91066078 Problem DM neuro manif type II E11.49 Active 85866107 Problem Benign prostatic hyperplasia with lower urinary tract symptoms, unspecified morphology N40.1 Active 88646 6007 Problem Leukocytosis D72.829 Active 6950159 06 Problem Chronic pain G89.29 Active 6256944 1 Problem 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 Active 611116354 Problem Eye exam abnormal R93.8 Active 16 5062987 Problem Anemia of chronic illness D63.8 Acti ve 830978302 Problem Lymphocytosis D72.820 Active 693754 09 Problem Eustachian tube dysfunction, unspecified laterality H69.80 Active 46239312 Problem Pressure ulcer of other site, stage 3 L89.893 Active 061221344 Problem Anxiety F41.9 Active 19016968 Problem Insomnia, unspecified type G47.00 Act sharon 783803673 Problem Essential hypertension I10 Active 51920686 Problem Morbid obesity E66.01 Active 82253 6002 Problem Polyneuropathy associated with underlying disease G63 Active 188555917 Problem Diabetic polyneuropathy associated with type 2 d iabetes mellitus E11.42 Active 49231840 Problem Retinal edema H35.81 Active 434062 6 Problem Chronic lymphocytic leukemia C91.10 A ctive 23355965 Problem Bilateral primary osteoarthritis of knee M17.0 Active 784988804 Problem Falling R29.6 Active 026051893 Problem Bipolar disorder, in partial remission, most rec ent episode depressed F31.75 Active 51798764 Problem Pure hypercholesterolemia E78.00 Acti ve 939054332 Problem Skin cancer C44.90 Active 80820142 7 Problem Reactive airway disease J45.909 Active 149435299421 Problem Bipolar disorder F31.9 Active 137 99101 Problem Diabetes E11.9 Active 25592369 Problem Bipolar I disorder, most recent episode (or curr ent) mixed, moderate F31.62 Active 10745494 Problem Primary osteoarthritis of right knee M17.11 Active 350905166997882 Problem Other chronic pain G89.29 Active 8 4587931 Problem Other iron deficiency anemia D50.8 A ctive 73422840 Problem Mild cognitive impairment G31.84 Acti ve 711167881 ALLERGIES No Information ENCOUNTERS Encounter Location Date Diagnosis [facility] [address] [id number] [address] [place] [id number] January, [facility] [address] [id number] [address] [place] [id number] January, [facility] [address] [id number] [address] [place] [id number] Dec, [facility] [address] [facility] [id number] [address] [place] [id number] Dec, [facility] [address] [id number] [address] [place] [id number] Dec, [facility] [address] [id number] [address] [place] [id number] Nov, [facility] [address] [id number] [address] [place] [address] Nov, Chronic pain G89.29 [facility] [address] [id number] [address] [place] [address] Nov, Bipolar disorder, in partial remission, most recent episode depressed F31.75 and Mild cognitive impairment G31.84 [facility] [address] [id number] [address] [place] [address] Nov, Bipolar disorder F31.9 [facility] [address] [facility] [id number] [address] [place] [id number] 04 Nov, 2018 Encounter for Medicare annua [...] unspecified morphology N40.1 and Essential hypertension I10 [address] [address] Oct, Chronic pain G89.[address] [address] Oct, Diabetes E11.[address] [address] Oct, Bipolar I disorder, most rec ent episode (or current) mixed, moderate F31.62 and Mild cognitive impairment G31.[address] [address] Oct, Bipolar I disorder, most rec ent episode (or current) mixed, moderate F31.62 and Mild cognitive impairment G31.[address] [address] Sep, Bipolar I disorder, most rec ent episode (or current) mixed, moderate F31.62 and Mild cognitive impairment G31.[address] [address] Sep, [address] [address] Sep, Diabetes E11.9 ; Hypoxia R09 .02 ; Hyperglycemia R73.9 ; Therapeutic drug monitoring Z51.81 ; BMI 50.0-59.9, adult Z68.43 and Skin cancer C44.[address] [address] Sep, Chronic pain G89.29 [facility] [address] [id number] [address] [place] [phone] Sep, Bipolar I disorder, most rec ent episode (or current) mixed, moderate F31.62 [facility] [address] [id number] [address] [place] [id number] Sep, [facility] [address] [id number] [address] [place] [id number] Sep, [facility] [address] [id number] [address] [place] [phone] Aug, Chronic pain G89.29 [facility] [address] [id number] [address] [place] [address] Aug, Bipolar I disorder, most rec ent episode (or current) mixed, moderate F31.62 [facility] [address] [id number] [address] [place] [id number] Aug, Bipolar I disorder, most rec ent episode (or current) mixed, moderate F31.62 and Mild cognitive impairment G31.84 [facility] [address] [id number] [address] [place] [id number] Jul, [facility] [address] [id number] [address] [place] [id number] Jul, Chronic pain G89.29 [facility] [address] [id number] [address] [place] [id number] Jul, Bipolar I disorder, most rec ent episode (or current) mixed, moderate F31.62 and Mild cognitive impairment G31.84 [facility] [address] [id number] [address] [place] [id number] Jul, Bipolar I disorder, most rec ent episode (or current) mixed, moderate F31.62 and MCI (mild cognitive impairment) G31.84 [facility] [address] [id number] [address] [place] [id number] Jul, [facility] [address] [id number] [address] [place] [id number] Jul, [facility] [address] [id number] [address] [place] [id number] Jul, Bipolar I disorder, most rec ent episode (or current) mixed, moderate F31.62 [facility] [address] [facility] [id number] [address] [place] [id number] Jul, Chronic pain G89.29 [facility] [address] [facility] [id number] [address] [place] [id number] Jun, Bipolar I disorder, most rec ent episode (or current) mixed, moderate F31.62 [facility] [address] [facility] [id number] [address] [place] [address] Jun, Pre-procedure lab exam Z01.8 12 [facility] [address] [facility] [id number] [address] [place] [phone] Jun, [facility] [address] [id number] [place] [id number] Jun, [facility] [address] [facility] [id number] [address] [place] [phone] Jun, [facility] [address] [facility] [id number] [address] [place] [id number] Jun, Forgetfulness R68.89 ; Pre-s yncope R55 ; Localized edema R60.0 ; Other iron deficiency anemia D50.8 and BMI 50.0-59.9, adult Z68.43 [facility] [address] [id number] [address] [place] [address] Jun, Chronic pain G89.29 [facility] [address] [facility] [id number] [address] [place] [address] Jun, Chronic pain G89.29 [facility] [address] [facility] [id number] [address] [place] [id number] Jun, Bipolar I disorder, most rec ent episode (or current) mixed, moderate F31.62 [place] [address] [facility] [id number] [address] [place] [id number] 07 May, 2018 Chronic pain G89.29 [facility] [address] [facility] [id number] [address] [place] [address] Apr, [place] [address] [facility] [id number] [address] [place] [address] Apr, Chronic pain G89.29 [place] [address] [facility] [id number] [address] [place] [id number] Apr, Primary osteoarthritis of ri ght knee M17.11 [place] [address] [facility] [id number] [address] [place] [address] Mar, [place] [address] [facility] [id number] [address] [place] [address] Mar, BMI 50.0-59.9, adult Z68.43 and Bipolar disorder, in partial remission, most recent episode depressed F31.75 [place] [address] [facility] [id number] [address] [place] [address] Mar, Diabetes E11.9 ; Pure hyperc holesterolemia E78.00 ; Essential hypertension I10 ; Nausea with vomiting, unspecified R11.2 and Headache, unspecified headache type R51 [place] [address] [facility] [id number] [address] [place] [id number] Mar, Bipolar I disorder, most rec ent episode (or current) mixed, moderate F31.62 [place] [address] [facility] [id number] [address] [place] [id number] Mar, Bipolar I disorder, most rec ent episode (or current) mixed, moderate F31.62 [place] [address] [facility] [id number] [address] [place] [address] Mar, Chronic pain G89.29 [place] [address] [facility] [id number] [address] [place] [phone] Mar, Bipolar I disorder, most rec ent episode (or current) mixed, moderate F31.62 [facility] [address] [id number] [address] [place] [id number] 18 Feb, 2018 Bipolar I disorder, most rec ent episode (or current) mixed, moderate F31.62 [facility] [address] [facility] [id number] [address] [place] [id number] 14 Feb, 2018 Chronic pain G89.29 [facility] [address] [id number] [address] [place] [id number] 06 Feb, 2018 Decubitus ulcer of right josselin t, stage 3 L89.893 and BMI 50.0-59.9, adult Z68.43 [facility] [address] [facility] [id number] [address] [place] [id number] 04 Feb, 2018 Bipolar I disorder, most rec ent episode (or current) mixed, moderate F31.62 [place] [address] [facility] [id number] [address] [place] [id number] Feb, [facility] [address] [id number] [address] [place] [phone] January, [facility] [address] [facility] [id number] [address] [place] [id number] January, Chronic pain G89.29 [facility] [address] [facility] [id number] [address] [place] [id number] January, Bipolar I disorder, most rec ent episode (or current) mixed, moderate F31.62 [facility] [address] [id number] [address] [place] [id number] January, Bipolar I disorder, most rec ent episode (or current) mixed, moderate F31.62 [facility] [address] [facility] [id number] [address] [place] [id number] Dec, Bipolar I disorder, most rec ent episode (or current) mixed, moderate F31.62 and BMI 50.0-59.9, adult Z68.43 [facility] [address] [facility] [id number] [address] [place] [id number] Dec, Bipolar I disorder, most rec ent episode (or current) mixed, moderate F31.62 [facility] [address] [facility] [id number] [address] [place] [id number] Dec, Chronic pain G89.29 [place] [address] [place] [id number] [address] [place] [id number] Dec, DM neuro manif type II E11.4 9 ; Right flank pain R10.9 ; longterm 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 Z79.891 ; Encounter for medication monitoring Z51.81 and BMI 50.0-59.9, adult Z68.43 [place] [address] [place] [id number] [address] [place] [id number] Dec, Bipolar I disorder, most rec ent episode (or current) mixed, moderate F31.62 [place] [address] [place] [id number] [address] [place] [id number] Nov, Bipolar I disorder, most rec ent episode (or current) mixed, moderate F31.62 [place] [address] [place] [id number] [address] [place] [id number] Nov, Chronic pain G89.29 [place] [address] [place] [id number] [address] [place] [id number] Nov, Bipolar I disorder, most rec ent episode (or current) mixed, moderate F31.62 [place] [address] [place] [id number] [address] [place] [id number] Nov, Hypokalemia E87.6 [place] [address] [facility] [id number] [address] [place] [id number] Nov, Bipolar I disorder, most rec ent episode (or current) mixed, moderate F31.62 [place] [address] [facility] [id number] [address] [place] [id number] Oct, Chronic pain G89.29 [place] [address] [place] [id number] [address] [place] [address] Oct, BMI 50.0-59.9, adult Z68.43 and Bipolar I disorder, most recent episode (or current) mixed, moderate F31.62 [place] [address] [facility] [id number] [address] [place] [id number] Oct, Bipolar I disorder, most rec ent episode (or current) mixed, moderate F31.62 [place] [address] [facility] [id number] [address] [place] [phone] Oct, [place] [address] [facility] [id number] [address] [place] [phone] Oct, Hypokalemia E87.6 [place] [address] [place] [id number] [address] [place] [id number] Oct, DM neuro manif type II E11.4 9 [place] [address] [place] [id number] [address] [place] [id number] Oct, Bipolar I disorder, most rec ent episode (or current) mixed, moderate F31.62 [place] [address] [facility] [id number] [address] [place] [id number] Oct, Bipolar I disorder, most rec ent episode (or current) mixed, moderate F31.62 [place] [address] [place] [id number] [address] [place] [address] Oct, Hyperkalemia E87.5 ; Falling R29.6 ; BMI 50.0-59.9, adult Z68.43 and Acute left ankle pain M25.572 [place] [address] [facility] [id number] [address] [place] [phone] Oct, DM neuro manif type II E11.4 9 [place] [address] [facility] [id number] [address] [place] [id number] Oct, [place] [address] [facility] [id number] [address] [place] [id number] Sep, Chronic pain G89.29 [facility] [address] [place] [id number] [address] [place] [address] Sep, [facility] [address] [address] Sep, Bilateral primary osteoarthr itis of knee M17.0 [place] [address] [address] Sep, Generalized edema R60.1 [facility] [address] [address] Sep, Bipolar I disorder, most rec ent episode (or current) mixed, moderate F31.62 [place] [address] [address] Sep, Hypoxia R09.02 ; Other hyper volemia E87.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 ; Anemia of chronic illness D63.8 and BMI 50.0- 59.9, adult Z68.43 [place] [address] [address] Sep, [place] [address] [address] Sep, Bipolar I disorder, most rec ent episode (or current) mixed, moderate F31.62 [place] [address] [place] [id number] [address] [place] [address] Aug, Chronic pain G89.29 [place] [address] [place] [id number] [address] [place] [address] Aug, Generalized edema R60.1 [facility] [address] [place] [id number] [place] [address] Aug, [place] [address] [address] Aug, [facility] [address] [facility] [id number] [address] [place] [id number] 14 Aug, 2017 Bipolar I disorder, most rec ent episode (or current) mixed, moderate F31.62 [facility] [address] [facility] [id number] [address] [place] [address] Aug, Bipolar I disorder, most rec ent episode (or current) mixed, moderate F31.62 [place] [address] [facility] [id number] [address] [place] [address] 04 Aug, 2017 Chronic pain G89.29 [place] [address] [facility] [id number] [address] [place] [id number] 30 Jul, 2017 Bipolar I disorder, most rec ent episode (or current) mixed, moderate F31.62 [place] [address] [place] [id number] [address] [place] [address] Jul, Bipolar I disorder, most rec ent episode (or current) mixed, moderate F31.62 and BMI 60.0-69.9, adult Z68.44 [place] [address] [place] [id number] [address] [place] [id number] 16 Jul, 2017 Bipolar I disorder, most rec ent episode (or current) mixed, moderate F31.62 [place] [address] [place] [id number] [address] [place] [address] Jul, Chronic pain G89.29 [facility] [address] [place] [id number] [address] [place] [id number] 02 Jul, 2017 Bipolar I disorder, most rec ent episode (or current) mixed, moderate F31.62 [place] [address] [facility] [id number] [address] [place] [id number] 18 Jun, 2017 Polyneuropathy associated wi th underlying disease G63 and Diabetes E11.9 [facility] [address] [facility] [id number] [address] [place] [id number] 16 Jun, 2017 Bipolar I disorder, most rec ent episode (or current) mixed, moderate F31.62 [place] [address] [id number] [address] [place] [id number] Jun, Chronic pain G89.29 [facility] [address] [id number] [address] [place] [id number] May, Bipolar I disorder, most rec ent episode (or current) mixed, moderate F31.62 [facility] [address] [id number] [address] [place] [id number] May, Bipolar I disorder, most rec ent episode (or current) mixed, moderate F31.62 [facility] [address] [id number] [address] [place] [id number] 20 May, 2017 Diabetic polyneuropathy asso ciated with type 2 diabetes mellitus E11.42 [facility] [address] [id number] [address] [place] [id number] 18 May, 2017 Bipolar I disorder, most rec ent episode (or current) mixed, moderate F31.62 [facility] [address] [id number] [address] [place] [address] May, Bipolar I disorder, most rec ent episode (or current) mixed, moderate F31.62 [facility] [address] [id number] [address] [place] [address] May, Chronic pain G89.29 [facility] [address] [id number] [address] [place] [id number] Apr, Bipolar I disorder, most rec ent episode (or current) mixed, moderate F31.62 [facility] [address] [id number] [address] [place] [address] Apr, [facility] [address] [id number] [address] [place] [id number] Apr, Chronic pain G89.29 and DM n euro manif type II E11.49 [facility] [address] [id number] [address] [place] [address] Apr, [facility] [address] [id number] [address] [place] [id number] Apr, Bipolar I disorder, most rec ent episode (or current) mixed, moderate F31.62 [facility] [address] [facility] [id number] [address] [place] [id number] Apr, Chronic pain G89.29 [facility] [address] [facility] [id number] [address] [place] [id number] Apr, Iliotibial band syndrome, le ft M76.32 [facility] [address] [facility] [id number] [address] [place] [id number] Apr, Bipolar I disorder, most rec ent episode (or current) mixed, moderate F31.62 [facility] [address] [facility] [id number] [address] [place] [address] Mar, Bipolar I disorder, most rec ent episode (or current) mixed, moderate F31.62 [facility] [address] [place] [id number] [address] [place] [address] Mar, Bipolar I disorder, most rec ent episode (or current) mixed, moderate F31.62 [facility] [address] [facility] [id number] [address] [place] [address] Mar, [facility] [address] [facility] [id number] [address] [place] [id number] Mar, Bipolar I disorder, most rec ent episode (or current) mixed, moderate F31.62 [facility] [address] [facility] [id number] [address] [place] [id number] Mar, Chronic pain G89.29 [facility] [address] [facility] [id number] [address] [place] [id number] Mar, Bipolar I disorder, most rec ent episode (or current) mixed, moderate F31.62 [facility] [address] [facility] [id number] [address] [place] [phone] Mar, Bipolar I disorder, most rec ent episode (or current) mixed, moderate F31.62 [facility] [address] [place] [id number] [address] [place] [address] Mar, Acute pain of left knee M25. 562 ; Left hip pain M25.552 ; Generalized edema R60.1 and Tongue swelling R22.0 [facility] [address] [place] [id number] [address] [place] [phone] Mar, [place] [address] [id number] [place] [id number] Feb, Chronic pain G89.29 [facility] [id number] [place] [phone] Feb, Diabetes E11.9 [place] [id number] [place] [id number] January, Chronic pain G89.29 [facility] [place] [id number] [place] [phone] January, [place] [id number] [place] [phone] January, Bipolar I disorder, most rec ent episode (or current) mixed, moderate F31.62 [place] [id number] [place] [phone] Dec, Bipolar I disorder, most rec ent episode (or current) mixed, moderate F31.62 [place] [id number] [place] [id number] Dec, Chronic pain G89.29 [place] [id number] [place] [id number] Dec, Bipolar I disorder, most rec ent episode (or current) mixed, moderate F31.62 [place] [id number] [place] [id number] Dec, Diabetes E11.9 ; Essential h ypertension I10 ; Chronic pain G89.29 and Morbid obesity E66.01 [place] [address] [place] [id number] [address] [place] [id number] Dec, [facility] [address] [id number] [address] [place] [id number] Dec, Bipolar I disorder, most rec ent episode (or current) mixed, moderate F31.62 [facility] [address] [facility] [id number] [address] [place] [id number] Dec, Bipolar I disorder, most rec ent episode (or current) mixed, moderate F31.62 [facility] [address] [facility] [id number] [address] [place] [id number] Nov, Chronic pain G89.29 [facility] [address] [facility] [id number] [address] [place] [id number] Nov, Bipolar I disorder, most rec ent episode (or current) mixed, moderate F31.62 [facility] [address] [facility] [id number] [address] [place] [id number] Nov, [facility] [address] [facility] [id number] [address] [place] [id number] Nov, Bipolar I disorder, most rec ent episode (or current) mixed, moderate F31.62 [facility] [address] [facility] [id number] [address] [place] [id number] Nov, Bipolar I disorder, most rec ent episode (or current) mixed, moderate F31.62 [facility] [address] [facility] [id number] [address] [place] [id number] Nov, [facility] [address] [facility] [id number] [address] [place] [id number] Nov, [facility] [address] [facility] [id number] [address] [place] [phone] Nov, [facility] [address] [facility] [id number] [address] [place] [id number] Oct, Chronic pain G89.29 [facility] [address] [facility] [id number] [address] [place] [id number] Oct, Bipolar I disorder, most rec ent episode (or current) mixed, moderate F31.62 [facility] [address] [id number] [address] [place] [id number] Oct, [facility] [address] [id number] [address] [place] [phone] 15 Oct, 2016 Chronic pain G89.29 ; Diabet es E11.9 ; Anxiety F41.9 and 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 [facility] [address] [id number] [address] [place] [phone] Oct, [facility] [address] [id number] [address] [place] [id number] Oct, Diabetes E11.9 [facility] [address] [id number] [address] [place] [id number] Oct, Bipolar I disorder, most rec ent episode (or current) mixed, moderate F31.62 [facility] [address] [id number] [address] [place] [id number] Sep, Chronic pain G89.29 [facility] [address] [id number] [address] [place] [id number] Sep, Chronic pain G89.29 [facility] [address] [facility] [id number] [address] [place] [id number] Aug, Chronic pain G89.29 [facility] [address] [id number] [address] [place] [id number] Jul, [facility] [address] [id number] [address] [place] [id number] Jul, Diabetes E11.9 [facility] [address] [id number] [address] [place] [id number] Jul, Chronic pain G89.29 [facility] [address] [facility] [id number] [address] [place] [id number] Jul, Bipolar I disorder, most rec ent episode (or current) mixed, moderate F31.62 [facility] [address] [id number] [address] [place] [phone] Jun, Bipolar I disorder, most rec ent episode (or current) mixed, moderate F31.62 [facility] [address] [facility] [id number] [address] [place] [phone] Jun, [facility] [address] [id number] [address] [place] [id number] Jun, Bipolar I disorder, most rec ent episode (or current) mixed, moderate F31.62 [facility] [address] [facility] [id number] [address] [place] [id number] May, Insomnia, unspecified type G 47.00 [facility] [address] [facility] [id number] [address] [place] [id number] May, Bipolar I disorder, most rec ent episode (or current) mixed, moderate F31.62 [facility] [address] [id number] [address] [place] [id number] May, [facility] [address] [facility] [id number] [address] [place] [id number] May, Bipolar I disorder, most rec ent episode (or current) mixed, moderate F31.62 [facility] [address] [facility] [id number] [address] [place] [id number] May, Diabetes E11.9 and Essential hypertension I10 [facility] [address] [id number] [address] [place] [address] Apr, Chronic pain G89.29 [facility] [address] [facility] [id number] [address] [place] [address] Apr, Bipolar I disorder, most rec ent episode (or current) mixed, moderate F31.62 [facility] [address] [facility] [id number] [address] [place] [address] Apr, [facility] [address] [place] [id number] [address] [place] [id number] Apr, [facility] [place] [address] [place] [id number] [address] [place] [address] Mar, Chronic pain G89.29 ; Headac he, unspecified headache type R51 ; Neuropathy G62.9 ; Pain of right hip joint M25.551 and Essential hypertension I10 [facility] [address] [place] [id number] [address] [place] [id number] Mar, Chronic pain G89.29 [facility] [place] [address] [place] [id number] [address] [place] [id number] Mar, Bipolar I disorder, most rec ent episode (or current) mixed, moderate F31.62 [facility] [place] [address] [place] [id number] [place] [address] Feb, Bipolar I disorder, most rec ent episode (or current) mixed, moderate F31.62 and Insomnia, unspecified type G47.00 [facility] [place] [address] [place] [id number] [address] [place] [address] Feb, Chronic pain G89.29 [facility] [place] [address] [place] [id number] [address] [place] [id number] Feb, Bipolar I disorder, most rec ent episode (or current) mixed, moderate F31.62 [facility] [place] [address] [place] [id number] [address] [place] [address] January, Bipolar I disorder, most rec ent episode (or current) mixed, moderate F31.62 [facility] [address] [place] [id number] [address] [place] [address] January, Chronic pain G89.29 [facility] [place] [address] [place] [id number] [address] [place] [address] January, Chronic pain G89.29 and Esse ntial hypertension I10 [facility] [place] [address] [place] [id number] [address] [place] [address] January, Bipolar I disorder, most rec ent episode (or current) mixed, moderate F31.62 [facility] [address] [facility] [id number] [address] [place] [id number] Dec, [facility] [address] [facility] [id number] [address] [place] [id number] Dec, [facility] [address] [facility] [id number] [address] [place] [phone] Dec, [facility] [address] [facility] [id number] [address] [place] [id number] Dec, [facility] [address] [place] [id number] [place] [address] Nov, Reactive airway disease J45. 909 [facility] [address] [place] [id number] [address] [place] [address] Nov, [facility] [address] [place] [id number] [place] [address] Nov, [facility] [address] [place] [id number] [address] [place] [id number] Nov, [facility] [address] [place] [id number] [place] [address] Nov, [facility] [address] [place] [id number] [address] [place] [address] Nov, Onychomycosis B35.1 ; Hammer toe M20.40 ; [place] or callus L84 and DM neuro manif type II E11.49 [facility] [address] [place] [id number] [address] [place] [id number] Nov, Chronic pain G89.29 ; Leukoc ytosis D72.829 and Diabetes E11.9 [facility] [address] [place] [id number] [address] [place] [address] Nov, [facility] [address] [place] [id number] [address] [place] [id number] 23 Feb, 2016 Bronchitis J40 [place] [address] [address] Oct, [facility] [address] [address] Oct, [facility] [address] [address] Oct, Mastoiditis, unspecified lat erality H70.90 and Type 2 diabetes mellitus with complication E11.8 [facility] [address] [address] Sep, [facility] [place] [address] [address] Sep, Dysuria R30.0 ; Cough R05 ; Benign prostatic hyperplasia with lower urinary tract symptoms, unspecified morphology N40.1 ; Hypokalemia E87.6 and Eustachian tube dysfunction, unspecified laterality H69.80 [facility] [facility] [address] [id number] Sep, Moderate mixed bipolar I dis order F31.62 [facility] [address] [address] Sep, Hypokalemia E87.6 [facility] [address] [address] Sep, [facility] [place] [address] [id number] Sep, Upper respiratory tract infe ction, unspecified type J06.9 [facility] [address] [address] Aug, [facility] [address] [address] Aug, Dysuria R30.0 [facility] [address] [address] Aug, [facility] [address] [id number] [address] [place] [address] Jul, [facility] [address] [id number] [address] [place] [phone] Jul, [facility] [address] [id number] [address] [place] [id number] Jul, [facility] [address] [id number] [address] [place] [id number] Jul, [facility] [address] [id number] [address] [place] [id number] Jun, [facility] [address] [id number] [address] [place] [phone] Jun, [facility] [address] [id number] [address] [place] [id number] Jun, [facility] [address] [id number] [address] [place] [id number] May, [facility] [address] [id number] [address] [place] [id number] May, Bipolar I disorder, most rec ent episode (or current) mixed, moderate 296.62 [facility] [address] [id number] [address] [place] [address] May, [facility] [address] [id number] [address] [place] [id number] May, Bipolar I disorder, most rec ent episode (or current) mixed, moderate 296.62 and Major depressive disorder, recurrent episode, severe, specified as with psychotic behavior 296.34 [facility] [address] [id number] [address] [place] [address] May, Bipolar I disorder, most rec ent episode (or current) mixed, moderate 296.62 [facility] [address] [id number] [address] [place] [address] May, [facility] [address] [id number] [address] [place] [id number] Apr, [facility] [address] [id number] [address] [place] [id number] Apr, [facility] [address] [facility] [id number] [address] [place] [address] Apr, Unspecified disorder of kidn ey and ureter 593.9 and Diabetes mellitus type 2, uncontrolled 250.02 [facility] [address] [id number] [address] [place] [address] Apr, [facility] [address] [id number] [address] [place] [phone] Apr, [facility] [address] [facility] [id number] [address] [place] [id number] Apr, [facility] [address] [facility] [id number] [address] [place] [address] Apr, [facility] [address] [facility] [id number] [address] [place] [address] Apr, Diabetes mellitus type II, u ncontrolled 250.02 [facility] [address] [facility] [id number] [address] [place] [id number] Apr, [facility] [address] [facility] [id number] [address] [place] [id number] Mar, [facility] [address] [facility] [id number] [address] [place] [phone] Mar, [facility] [address] [facility] [id number] [address] [place] [id number] Mar, [facility] [address] [facility] [id number] [address] [place] [address] Mar, Major depressive disorder, r ecurrent episode, severe, specified as with psychotic behavior 296.34 and Bipolar I disorder, most recent episode (or current) mixed, moderate 296.62 [facility] [address] [facility] [id number] [address] [place] [address] Mar, Diabetes 250.00 ; Anuria 788 .5 ; Nausea and vomiting 787.01 and Diarrhea 787.91 [facility] [address] [address] Mar, Diabetes 250.00 [facility] [address] [id number] Mar, [facility] [address] [address] Mar, Diabetes 250.00 [facility] [address] [address] Mar, [facility] [address] [address] Mar, [facility] [address] [address] Mar, [facility] [address] [address] Mar, [facility] [address] [address] Mar, Bipolar I disorder, most rec ent episode (or current) mixed, moderate 296.62 and Major depressive disorder, recurrent episode, severe, specified as with psychotic behavior 296.34 [facility] [address] [address] Mar, Magnesium deficiency 275.2 ; Hypokalemia 276.8 ; Nausea & vomiting 787.01 and Diabetes mellitus type 2, uncontrolled 250.02 [facility] [address] [place] [id number] [address] [place] [address] Feb, [facility] [address] [address] Feb, Bipolar I disorder, most rec ent episode (or current) mixed, moderate 296.62 [facility] [address] [address] Feb, Nausea and vomiting 787.01 ; Left elbow pain 719.42 ; Anuria 788.5 and Diabetes 250.00 [facility] [address] [place] [id number] [address] [place] [id number] Feb, [facility] [address] [place] [id number] [address] [place] [address] Feb, Hypopotassemia 276.8 and Hyp okalemia 276.8 [facility] [address] [facility] [id number] [place] [id number] Feb, Hypopotassemia 276.8 and Hyp okalemia 276.8 [facility] [address] [place] [id number] [place] [address] Feb, Seborrheic keratoses 702.19 [facility] [address] [place] [id number] [place] [address] Feb, Hypopotassemia 276.8 and Low magnesium levels 275.2 [facility] [address] [facility] [id number] [address] [place] [id number] January, [facility] [address] [place] [id number] [address] [place] [id number] January, [facility] [address] [place] [id number] [address] [place] [id number] January, [facility] [address] [place] [id number] [address] [place] [address] January, Scalp lesion 709.9 [facility] [address] [place] [id number] [address] [place] [address] January, [facility] [address] [place] [id number] [address] [place] [address] Dec, Tear of medial cartilage or meniscus of knee, current 836.0 and 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 [facility] [address] [place] [id number] [address] [place] [id number] Dec, [facility] [address] [id number] [address] [place] [address], [place] [address] Dec, [facility] [address] [id number] [address] [place] [address], [place] [address] 28 Dec, 2014 Squamous cell carcinoma, 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 [facility] [address] [id number] [address] [place] [address], [place] [address] 14 Dec, 2014 [facility] [address] [id number] [address] [place] [address], [place] [address] 13 Dec, 2014 [facility] [address] [id number] [address] [place] [address], [place] [address] Nov, [facility] [address] [id number] [address] [place] [address], [place] [address] Nov, [facility] [address] [id number] [address] [place] [address], [place] [address] Nov, [facility] [address] [id number] [address] [place] [address], [place] [address] Nov, [facility] [address] [id number] [address] [place] [address], [place] [address] Nov, [facility] [address] [id number] [address] [place] [address], [place] [address] Nov, [facility] [address] [id number] [address] [place] [address], [place] [address] Nov, [facility] [address] [id number] [address] [place] [address], [place] [address] Nov, [facility] [address] [id number] [address] [place] [address], [place] [address] Nov, [facility] [address] [id number] [address] [place] [address], [place] [address] Nov, [facility] [address] [id number] [address] [place] [address], [place] [address] Nov, [facility] [address] [id number] [address] [place] [address], [place] [address] Nov, [facility] [address] [id number] [address] [place] [address], [place] [address] Oct, 2014 [facility] [address] [id number] [address] [place] [address], [place] [address] Oct, 2014 [facility] [address] [id number] [address] [place] [address], [place] [address] Oct, 2014 [facility] [address] [id number] [address] [place] [address], [place] [address] Oct, 2014 [facility] [address] [id number] [address] [place] [address], [place] [address] Oct, 2014 [facility] [address] [id number] [address] [place] [address], [place] [address] Oct, 2014 [facility] [address] [id number] [address] [place] [address], [place] [address] Oct, 2014 [facility] [address] [id number] [address] [place] [address], [place] [address] Oct, [facility] [address] [id number] [address] [place] [phone] Oct, [facility] [address] [id number] [address] [place] [id number] Sep, [facility] [address] [id number] [address] [place] [address] Sep, [facility] [address] [id number] [address] [place] [phone] Sep, [facility] [address] [id number] [address] [place] [phone] Sep, [facility] [address] [id number] [address] [place] [id number] Sep, [facility] [address] [id number] [address] [place] [phone] Sep, [facility] [address] [id number] [address] [place] [address], [place] [address] Sep, [facility] [address] [id number] [address] [place] [address], [place] [address] Sep, [facility] [address] [id number] [address] [place] [address], [place] [address] Sep, [facility] [address] [id number] [address] [place] [address], [place] [address] Sep, [facility] [address] [id number] [address] [place] [address], [place] [address] Sep, [facility] [address] [id number] [address] [place] [address], [place] [address] Sep, [facility] [address] [id number] [address] [place] [address], [place] [address] Sep, [facility] [address] [id number] [address] [place] [address], [place] [address] Sep, [facility] [address] [id number] [address] [place] [address], [place] [address] Sep, [facility] [address] [id number] [address] [place] [address], [place] [address] Sep, [facility] [address] [id number] [address] [place] [address], [place] [address] Aug, [facility] [address] [id number] [address] [place] [address], [place] [address] Aug, [facility] [address] [id number] [address] [place] [address], [place] [address] Aug, [facility] [address] [id number] [address] [place] [address], [place] [address] Aug, [facility] [address] [id number] [address] [place] [address], [place] [address] Aug, [facility] [address] [id number] [facility] [place] [address] Aug, [facility] [address] [id number] [facility] [place] [address] Aug, [facility] [address] [id number] [facility] [place] [address] Aug, [facility] [address] [id number] [address] [place] [address], [place] [address] Aug, [facility] [address] [id number] [address] [place] [address], [place] [address] Aug, [facility] [address] [id number] [address] [place] [address], [place] [address] Aug, [facility] [address] [place] [id number] Aug, [facility] [address] [id number] [address] [place] [address], [place] [address] Aug, [facility] [address] [id number] [address] [place] [address], [place] [address] Aug, [facility] [address] [id number] [address] [place] [address], [place] [address] Aug, [facility] [facility], [facility] [address] [id number] [address] [place] [address], [place] [address] Aug, [facility] [address] [id number] [address] [place] [address], [place] [address] Aug, [facility] [address] [id number] [address] [place] [address], [place] [address] Aug, [facility] [address] [id number] [address] [place] [address], [place] [address] Aug, [facility] [address] [id number] [address] [place] [address], [place] [address] Aug, [facility] [address] [id number] [address] [place] [address], [place] [address] Aug, [facility] [address] [id number] [address] [place] [address], [place] [address] Aug, [facility] [address] [id number] [address] [place] [address], [place] [address] Aug, [facility] [address] [id number] [address] [place] [address], [place] [address] Aug, [facility] [address] [id number] [address] [place] [address], [place] [address] Aug, [facility] [address] [id number] [address] [place] [address], [place] [address] Aug, [facility] [address] [id number] [address] [place] [address], [place] [address] Aug, [facility] [address] [id number] [address] [place] [address], [place] [address] Aug, [facility] [address] [id number] [address] [place] [address], [place] [address] Aug, [facility] [address] [id number] [address] [place] [address], [place] [address] Aug, [facility] [address] [id number] [address] [place] [address], [place] [address] Jul, [facility] [address] [id number] [address] [place] [address], [place] [address] Jul, [facility] [address] [id number] [address] [place] [address], [place] [address] Jul, [facility] [address] [id number] [address] [place] [address], [place] [address] Jul, [facility] [address] [id number] [address] [place] [address], [place] [address] Jul, [facility] [address] [id number] [address] [place] [address], [place] [address] Jul, [facility] [address] [id number] [address] [place] [address] Jul, [facility] [address] [id number] [address] [place] [address], [place] [address] Jul, [facility] [address] [id number] [address] [place] [address] Jul, [facility] [address] [id number] [address] [place] [address], [place] [address] Jul, [facility] [address] [id number] [address] [place] [address], [place] [address] Jun, [facility] [address] [id number] [address] [place] [address], [place] [address] Jun, [facility] [address] [id number] [address] [place] [address], [place] [address] Jun, [facility] [address] [id number] [address] [place] [address] Jun, [facility] [address] [id number] [address] [place] [address] Jun, [facility] [address] [id number] [address] [place] [address] Jun, [facility] [address] [id number] [address] [place] [address] Jun, [facility] [address] [id number] [address] [place] [address] Jun, [facility] [address] [id number] [address] [place] [address] Jun, [facility] [address] [id number] [address] [place] [address] Jun, [facility] [address] [id number] [address] [place] [address] May, [facility] [address] [id number] [address] [place] [address], [place] [address] 29 May, 2014 [facility] [address] [id number] [facility] [place] [address] 26 Sep, 2013 [facility] [address] [id number] [facility] [place] [address] 26 Sep, 2013 [facility] [address] [id number] [facility] [place] [address] 17 Sep, 2013 [facility] [address] [id number] [address] [place] [address], [place] [address] 17 Sep, 2013 [facility] [address] [id number] [address] [place] [address], [place] [address] 15 Sep, 2013 [facility] [address] [id number] [address] [place] [address], [place] [address] 15 May, 2013 [facility] [address] [id number] [address] [place] [address], [place] [address] 15 May, 2013 [facility] [address] [id number] [address] [place] [address], [place] [address] 15 May, 2013 [facility] [address] [id number] [address] [place] [address], [place] [address] 10 May, 2013 [facility] [address] [id number] [address] [place] [address], [place] [address] 10 May, 2013 [facility] [address] [id number] [address] [place] [address], [place] [address] 09 May, 2013 [facility] [address] [id number] [address] [place] [address], [place] [address] 09 May, 2013 [facility] [address] [id number] [address] [place] [address], [place] [address] 04 May, 2013 [facility] [address] [id number] [address] [place] [address], [place] [address] 04 May, 2013 [facility] [address] [id number] [address] [place] [address], [place] [address] Apr, [facility] [address] [id number] [address] [place] [address], [place] [address] Apr, [facility] [address] [id number] [facility] [place] [address] Apr, [facility] [address] [id number] [address] [place] [address], [place] [address] Apr, [facility] [address] [id number] [facility] [place] [address] Apr, [facility] [address] [id number] [address] [place] [address], [place] [address] Apr, [facility] [address] [id number] [address] [place] [address], [place] [address] Apr, [facility] [address] [id number] [address] [place] [address], [place] [address] Apr, [facility] [address] [id number] [address] [place] [address], [place] [address] Apr, [facility] [address] [id number] [address] [place] [address], [place] [address] Apr, [facility] [address] [id number] [address] [place] [address], [place] [address] Apr, [facility] [address] [id number] [address] [place] [address], [place] [address] Apr, [facility] [address] [id number] [address] [place] [address], [place] [address] Apr, [facility] [address] [id number] [address] [place] [address], [place] [address] Apr, [facility] [address] [id number] [address] [place] [address], [place] [address] Apr, [facility] [address] [id number] [address] [place] [address], [place] [address] Mar, [facility] [address] [id number] [address] [place] [address], [place] [address] Mar, [facility] [address] [id number] [address] [place] [address], [place] [address] Mar, 2013 [facility] [address] [id number] [facility] [place] [address] Mar, 2013 [facility] [address] [id number] [address] [place] [address], [place] [address] Mar, 2013 [facility] [address] [id number] [address] [place] [address], [place] [address] Mar, 2013 [facility] [address] [id number] [address] [place] [address], [place] [address] Mar, 2013 [facility] [address] [id number] [address] [place] [address], [place] [address] Mar, 2013 [facility] [address] [id number] [address] [place] [address], [place] [address] Mar, 2013 [facility] [address] [id number] [address] [place] [address], [place] [address] Mar, 2013 [facility] [address] [id number] [address] [place] [address], [place] [address] Mar, 2013 [facility] [address] [id number] [address] [place] [address], [place] [address] Mar, 2013 [facility] [address] [id number] [address] [place] [address], [place] [address] Mar, 2013 [facility] [address] [id number] [address] [place] [address], [place] [address] Mar, 2013 [facility] [address] [id number] [address] [place] [address], [place] [address] Mar, 2013 [facility] [address] [id number] [address] [place] [address], [place] [address] Mar, 2013 [facility] [address] [id number] [address] [place] [address], [place] [address] Mar, 2013 [facility] [address] [id number] [address] [place] [address] [address] Mar2013 [facility] [address] [id number] [facility] [place] [address] Feb, [facility] [address] [id number] [facility] [place] [address] Feb, [facility] [address] [id number] [facility] [place] [address] Feb, [facility] [address] [id number] [facility] [place] [address] Feb, [facility] [address] [id number] [facility] [place] [address] Feb, [facility] [address] [id number] [address] [place] [address], [place] [address] Feb, [facility] [address] [id number] [address] [place] [address], [place] [address] Feb, [facility] [address] [id number] [address] [place] [address], [place] [address] Feb, [facility] [address] [id number] [address] [place] [address], [place] [address] Feb, [facility] [address] [id number] [address] [place] [address], [place] [address] Feb, [facility] [address] [id number] [address] [place] [address], [place] [address] Feb, [facility] [address] [id number] [address] [place] [address], [place] [address] Feb, [facility] [address] [id number] [address] [place] [address], [place] [address] Feb, [facility] [address] [id number] [address] [place] [address], [place] [address] Feb, [facility] [address] [id number] [address] [place] [address], [place] [address] January, [facility] [address] [id number] [address] [place] [address], [place] [address] January, [facility] [address] [id number] [facility] [place] [address] January, [facility] [address] [id number] [address] [place] [address], [place] [address] January, [facility] [address] [id number] [address] [place] [address], [place] [address] January, [facility] [address] [id number] [address] [place] [address], [place] [address] January, [facility] [address] [id number] [address] [place] [address], [place] [address] January, [facility] [address] [id number] [address] [place] [address], [place] [address] January, [facility] [address] [id number] [address] [place] [address], [place] [address] January, [facility] [address] [id number] [address] [place] [address], [place] [address] January, [facility] [address] [id number] [address] [place] [address], [place] [address] January, [facility] [address] [id number] [address] [place] [address], [place] [address] January, [facility] [address] [id number] [address] [place] [address], [place] [address] January, [facility] [address] [id number] [address] [place] [address], [place] [address] January, [facility] [address] [id number] [address] [place] [address], [place] [address] Dec, [facility] [address] [id number] [address] [place] [address], [place] [address] Dec, [facility] [address] [id number] [address] [place] [address], [place] [address] Dec, [facility] [address] [id number] [facility] [place] [address] Dec, [facility] [address] [id number] [facility] [place] [address] Dec, [facility] [address] [id number] [facility] [place] [address] Dec, [facility] [address] [id number] [address] [place] [address], [place] [address] Dec, [facility] [address] [id number] [address] [place] [address], [place] [address] Dec, [facility] [address] [id number] [address] [place] [address], [place] [address] Dec, [facility] [address] [id number] [address] [place] [address], [place] [address] Dec, [facility] [address] [id number] [address] [place] [address], [place] [address] Nov, [facility] [address] [id number] [address] [place] [address], [place] [address] Nov, [facility] [address] [id number] [address] [place] [address], [place] [address] Nov, [facility] [address] [id number] [address] [place] [address], [place] [address] Nov, [facility] [address] [id number] [address] [place] [address], [place] [address] Nov, [facility] [address] [id number] [address] [place] [address], [place] [address] Nov, [facility] [address] [id number] [address] [place] [address], [place] [address] 05 Nov, 2013 [facility] [address] [id number] [address] [place] [address], [place] [address] 05 Nov, 2013 [facility] [address] [id number] [address] [place] [address], [place] [address] Nov, [facility] [address] [id number] [address] [place] [address], [place] [address] Nov, [facility] [address] [id number] [address] [place] [address], [place] [address] Oct, [facility] [address] [id number] [address] [place] [address], [place] [address] Oct, [facility] [address] [id number] [address] [place] [address], [place] [address] Oct, [facility] [address] [id number] [address] [place] [address], [place] [address] Oct, [facility] [address] [id number] [address] [place] [address], [place] [address] Oct, [facility] [address] [id number] [address] [place] [address], [place] [address] Oct, [facility] [address] [id number] [address] [place] [address], [place] [address] Oct, [facility] [address] [id number] [address] [place] [address], [place] [address] Oct, [facility] [address] [id number] [address] [place] [address], [place] [address] Oct, [facility] [address] [id number] [address] [place] [address], [place] [address] Oct, [facility] [address] [id number] [address] [place] [address], [place] [address] Oct, [facility] [address] [id number] [address] [place] [address], [place] [address] Oct, [facility] [address] [id number] [address] [place] [address], [place] [address] Oct, [facility] [address] [id number] [address] [place] [address], [place] [address] Oct, [facility] [address] [id number] [address] [place] [address], [place] [address] Sep, [facility] [address] [id number] [address] [place] [address], [place] [address] Sep, [facility] [address] [id number] [address] [place] [address], [place] [address] 15 Sep, 2013 [facility] [address] [id number] [address] [place] [address], [place] [address] 15 Sep, 2013 [facility] [address] [id number] [address] [place] [address], [place] [address] 14 Sep, 2013 [facility] [address] [id number] [address] [place] [address], [place] [address] Sep, [facility] [address] [id number] [address] [place] [address], [place] [address] Sep, [facility] [address] [id number] [address] [place] [address], [place] [address] Sep, [facility] [address] [id number] [address] [place] [address], [place] [address] 08 Sep, 2013 [facility] [address] [id number] [address] [place] [address], [place] [address] Sep, [facility] [address] [id number] [address] [place] [address], [place] [address] 10 Aug, 2013 [facility] [address] [id number] [address] [place] [address], [place] [address] Aug, [facility] [address] [id number] [address] [place] [address], [place] [address] Jul, [facility] [address] [id number] [address] [place] [address], [place] [address] Jul, [facility] [address] [id number] [address] [place] [address], [place] [address] 13 Jul, 2013 [facility] [address] [id number] [address] [place] [address] [address] Jul, [facility] [address] [id number] [address] [place] [address], [place] [address] Jul, [facility] [address] [id number] [address] [place] [address], [place] [address] Jul, [facility] [address] [id number] [address] [place] [address], [place] [address] Jul, [facility] [address] [id number] [address] [place] [address], [place] [address] Jul, [facility] [address] [id number] [address] [place] [address], [place] [address] Jul, [facility] [address] [id number] [address] [place] [address], [place] [address] Jul, [facility] [address] [id number] [address] [place] [address], [place] [address] Jul, [facility] [address] [id number] [address] [place] [address], [place] [address] Jul, [facility] [address] [id number] [address] [place] [address], [place] [address] Jul, [facility] [address] [id number] [address] [place] [address], [place] [address] Jul, [facility] [address] [id number] [address] [place] [address] Jul, [facility] [address] [id number] [address] [place] [address] Jul, [facility] [address] [id number] [address] [place] [address], [place] [address] Jul, [facility] [address] [id number] [address] [place] [address], [place] [address] Jul, [facility] [address] [id number] [address] [place] [address], [place] [address] Jul, [facility] [address] [id number] [address] [place] [address], [place] [address] 16 Jun, 2012 [facility] [address] [id number] [address] [place] [address], [place] [address] 16 Jun, 2012 [facility] [address] [id number] [address] [place] [address], [place] [address] 16 Jun, 2012 [facility] [address] [id number] [address] [place] [address], [place] [address] 16 Jun, 2012 [facility] [address] [id number] [address] [place] [address], [place] [address] 16 Jun, 2012 [facility] [address] [id number] [address] [place] [address], [place] [address] 16 Jun, 2012 [facility] [address] [id number] [address] [place] [address], [place] [address] 10 Jun, 2012 [facility] [address] [id number] [address] [place] [address], [place] [address] 10 Jun, 2012 [facility] [address] [id number] [address] [place] [address], [place] [address] 09 Jun, 2012 [facility] [address] [id number] [address] [place] [address], [place] [address] 09 Jun, 2012 [facility] [address] [id number] [address] [place] [address], [place] [address] 01 Jun, 2013 [facility] [address] [id number] [address] [place] [address], [place] [address] 26 Sep, 2012 [facility] [address] [id number] [address] [place] [address], [place] [address] 25 Sep, 2012 [facility] [address] [id number] [address] [place] [address], [place] [address] 19 Sep, 2012 [facility] [address] [id number] [address] [place] [address], [place] [address] 17 Sep, 2012 [facility] [address] [id number] [address] [place] [address] 11 May, 2013 [facility] [address] [id number] [address] [place] [address], [place] [address] May, [facility] [address] [id number] [address] [place] [address], [place] [address] May, [facility] [address] [address] [id number] [address] [place] [address], [place] [address] May, [facility] [address] [id number] [address] [place] [address], [place] [address] Apr, [facility] [address] [id number] [address] [place] [address], [place] [address] Apr, [facility] [address] [id number] [address] [place] [address], [place] [address] Apr, [facility] [address] [id number] [address] [place] [address], [place] [address] Apr, [facility] [address] [id number] [address] [place] [address], [place] [address] Apr, [facility] [address] [id number] [address] [place] [address], [place] [address] Mar, [facility] [address] [id number] [address] [place] [address], [place] [address] Mar, [facility] [address] [id number] [address] [place] [address], [place] [address] Mar, [facility] [address] [id number] [address] [place] [address], [place] [address] Mar, [facility] [address] [id number] [address] [place] [address], [place] [address] Mar, [facility] [address] [id number] [address] [place] [address], [place] [address] Mar, [facility] [address] [id number] [address] [place] [address], [place] [address] Mar, [facility] [address] [id number] [address] [place] [address], [place] [address] Mar, [facility] [address] [id number] [address] [place] [address], [place] [address] Feb, [facility] [address] [id number] [address] [place] [address], [place] [address] Feb, [facility] [address] [id number] [address] [place] [address], [place] [address] January, [facility] [address] [id number] [address] [place] [address], [place] [address] January, [facility] [address] [id number] [address] [place] [address], [place] [address] Dec, [facility] [address] [id number] [address] [place] [address], [place] [address] Dec, [facility] [address] [id number] [address] [place] [address], [place] [address] Nov, [facility] [address] [id number] [address] [place] [address], [place] [address] Nov, [facility] [address] [id number] [address] [place] [address], [place] [address] Nov, [facility] [address] [id number] [address] [place] [address], [place] [address] Nov, [facility] [address] [id number] [address] [place] [address], [place] [address] Oct, [facility] [address] [id number] [address] [place] [address], [place] [address] Oct, [facility] [address] [id number] [address] [place] [address], [place] [address] Oct, [facility] [address] [id number] [address] [place] [address], [place] [address] Oct, [facility] [address] [id number] [address] [place] [address], [place] [address] Oct, [facility] [address] [id number] [address] [place] [address], [place] [address] 14 Oct, 2012 [facility] [address] [id number] [address] [place] [address], [place] [address] 08 Oct, 2012 [facility] [address] [id number] [address] [place] [address], [place] [address] 07 Oct, 2012 [facility] [address] [id number] [address] [place] [address], [place] [address] 03 Oct, 2012 [facility] [address] [id number] [address] [place] [address], [place] [address] 30 Sep, 2012 [facility] [address] [id number] [address] [place] [address], [place] [address] Sep, [facility] [address] [id number] [address] [place] [address], [place] [address] Sep, [facility] [address] [id number] [address] [place] [address], [place] [address] Sep, [facility] [address] [id number] [address] [place] [address], [place] [address] Sep, [facility] [address] [id number] [address] [place] [address], [place] [address] Sep, [facility] [address] [id number] [address] [place] [address], [place] [address] Sep, [facility] [address] [id number] [address] [place] [address], [place] [address] Sep, [facility] [address] [id number] [address] [place] [address], [place] [address] Aug, [facility] [address] [id number] [address] [place] [address], [place] [address] Aug, [facility] [address] [id number] [address] [place] [address], [place] [address] Aug, [facility] [address] [id number] [address] [place] [address], [place] [address] Aug, [facility] [address] [id number] [address] [place] [address], [place] [address] Aug, [facility] [address] [id number] [address] [place] [address], [place] [address] Aug, [facility] [address] [id number] [address] [place] [address], [place] [address] Aug, [facility] [address] [id number] [address] [place] [address], [place] [address] Aug, [facility] [address] [id number] [address] [place] [address], [place] [address] Jul, [facility] [address] [id number] [address] [place] [address], [place] [address] Jul, [facility] [address] [id number] [address] [place] [address], [place] [address] Jul, [facility] [address] [id number] [address] [place] [address], [place] [address] Jul, [facility] [address] [id number] [address] [place] [address], [place] [address] Jul, [facility] [address] [id number] [address] [place] [address], [place] [address] Jul, [facility] [address] [id number] [address] [place] [address], [place] [address] Jun, [facility] [address] [id number] [address] [place] [address], [place] [address] Jun, [facility] [address] [id number] [address] [place] [address], [place] [address] Jun, [facility] [address] [id number] [address] [place] [address], [place] [address] Jun, [facility] [address] [id number] [address] [place] [address], [place] [address] Jun, [facility] [address] [id number] [address] [place] [address], [place] [address] 19 Jun, 2012 [facility] [address] [id number] [address] [place] [address], [place] [address] 19 Jun, 2012 [facility] [address] [id number] [address] [place] [address], [place] [address] 10 Jun, 2012 [facility] [address] [id number] [address] [place] [address], [place] [address] 10 Jun, 2012 [facility] [address] [id number] [address] [place] [address], [place] [address] 26 May, 2012 [facility] [address] [id number] [address] [place] [address], [place] [address] 24 May, 2012 [facility] [address] [id number] [address] [place] [address], [place] [address] 18 May, 2012 [facility] [address] [id number] [address] [place] [address], [place] [address] 30 Apr, 2012 [facility] [address] [id number] [address] [place] [address], [place] [address] Apr, [facility] [address] [id number] [address] [place] [address], [place] [address] Apr, [facility] [address] [id number] [address] [place] [address], [place] [address] 14 Apr, 2012 [facility] [address] [id number] [address] [place] [address], [place] [address] Apr, [facility] [address] [id number] [address] [place] [address], [place] [address] Apr, [facility] [address] [id number] [address] [place] [address], [place] [address] Mar, [facility] [address] [id number] [address] [place] [address], [place] [address] Mar, [facility] [address] [id number] [address] [place] [address], [place] [address] Mar, [facility] [address] [id number] [address] [place] [address], [place] [address] Mar, [facility] [address] [id number] [address] [place] [address], [place] [address] Feb, [facility] [address] [id number] [address] [place] [address], [place] [address] Feb, [facility] [address] [id number] [address] [place] [address], [place] [address] Feb, [facility] [address] [id number] [address] [place] [address], [place] [address] Feb, [facility] [address] [id number] [address] [place] [address], [place] [address] Feb, [facility] [address] [id number] [address] [place] [address], [place] [address] January, [facility] [address] [id number] [address] [place] [address], [place] [address] January, [facility] [address] [id number] [address] [place] [address], [place] [address] January, [facility] [address] [id number] [address] [place] [address], [place] [address] January, [facility] [address] [id number] [address] [place] [address], [place] [address] January, [facility] [address] [id number] [address] [place] [address], [place] [address] January, [facility] [address] [id number] [address] [place] [address], [place] [address] Dec, [facility] [address] [id number] [address] [place] [address], [place] [address] Dec, [facility] [address] [id number] [address] [place] [address], [place] [address] Dec, [facility] [address] [id number] [address] [place] [address], [place] [address] 09 Dec, 2011 [facility] [address] [id number] [address] [place] [address], [place] [address] 06 Dec, 2011 [facility] [address] [id number] [address] [place] [address], [place] [address] 27 Nov, 2011 [facility] [address] [id number] [address] [place] [address], [place] [address] 14 Nov, 2011 [facility] [address] [id number] [address] [place] [address], [place] [address] 12 Nov, 2011 [facility] [address] [id number] [address] [place] [address], [place] [address] 07 Nov, 2011 [facility] [address] [id number] [address] [place] [address], [place] [address] 29 Oct, 2011 [facility] [address] [id number] [address] [place] [address], [place] [address] 28 Oct, 2011 [facility] [address] [id number] [address] [place] [address], [place] [address] 24 Oct, 2011 [facility] [address] [id number] [address] [place] [address], [place] [address] 13 Oct, 2011 [facility] [address] [id number] [address] [place] [address], [place] [address] 08 Oct, 2011 [facility] [address] [id number] [address] [place] [address], [place] [address] 31 Sep, 2011 [facility] [address] [id number] [address] [place] [address], [place] [address] 30 Sep, 2011 [facility] [address] [id number] [address] [place] [address], [place] [address] 12 Sep, 2011 [facility] [address] [id number] [address] [place] [address], [place] [address] 10 Sep, 2011 [facility] [address] [id number] [address] [place] [address], [place] [address] Sep, [facility] [address] [id number] [address] [place] [address], [place] [address] Sep, [facility] [address] [id number] [address] [place] [address], [place] [address] Aug, [facility] [address] [id number] [address] [place] [address], [place] [address] Aug, [facility] [address] [id number] [address] [place] [address], [place] [address] Aug, [facility] [address] [id number] [address] [place] [address], [place] [address] Jul, [facility] [address] [id number] [address] [place] [address], [place] [address] Jul, [facility] [address] [id number] [address] [place] [address], [place] [address] Jul, [facility] [address] [id number] [address] [place] [address], [place] [address] Jul, [facility] [address] [id number] [address] [place] [address], [place] [address] Jun, [facility] [address] [id number] [address] [place] [address], [place] [address] Jun, [facility] [address] [id number] [address] [place] [address], [place] [address] Jun, [facility] [address] [id number] [address] [place] [address] Jun, [facility] [address] [id number] [address] [place] [address], [place] [address] Jun, [facility] [address] [id number] [address] [place] [address], [place] [address] Jun, [facility] [address] [id number] [address] [place] [address] Mar, [facility] [address] [id number] [address] [place] [address] 18 Dec, 2010 [facility] [address] [id number] [address] [place] [address], [place] [address] 11 Dec, 2010 [facility] [address] [id number] [address] [place] [address], [place] [address] 18 Nov, 2010 [facility] [address] [id number] [address] [place] [address], [place] [address] 16 Nov, 2010 [facility] [address] [id number] [address] [place] [address], [place] [address] 10 Sep, 2010 [facility] [address] [id number] [address] [place] [address], [place] [address] 31 Aug, 2010 [facility] [address] [id number] [address] [place] [address], [place] [address] 29 Aug, 2010 [facility] [address] [id number] [address] [place] [address], [place] [address] 29 Aug, 2010 [facility] [address] [id number] [address] [place] [address], [place] [address] 29 Aug, 2010 [facility] [address] [id number] [address] [place] [address], [place] [address] 27 Aug, 2010 [facility] [address] [id number] [address] [place] [address], [place] [address] 14 Aug, 2010 [facility] [address] [id number] [address] [place] [address], [place] [address] 08 Aug, 2010 [facility] [address] [id number] [address] [place] [address], [place] [address] 08 Aug, 2010 [facility] [address] [id number] [address] [place] [address], [place] [address] 07 Aug, 2010 [facility] [address] [id number] [address] [place] [address], [place] [address] 06 Aug, 2010 [facility] [address] [id number] [address] [place] [address], [place] [address] 06 Aug, 2010 [facility] [address] [id number] [address] [place] [address], [place] [address] Aug, [facility] [address] [id number] [address] [place] [address], [place] [address] Jul, [facility] [address] [id number] [address] [place] [address], [place] [address] Jul, [facility] [address] [id number] [address] [place] [address], [place] [address] Jul, [facility] [address] [id number] [address] [place] [address], [place] [address] Jul, [facility] [address] [id number] [address] [place] [address], [place] [address] Jul, [facility] [address] [id number] [address] [place] [address], [place] [address] Jul, [facility] [address] [id number] [address] [place] [address], [place] [address] Jun, [facility] [address] [id number] [address] [place] [address], [place] [address] Jun, [facility] [address] [id number] [address] [place] [address], [place] [address] Jun, [facility] [address] [id number] [address] [place] [address], [place] [address] Jun, [facility] [address] [id number] [address] [place] [address], [place] [address] Apr, [facility] [address] [id number] [address] [place] [address], [place] [address] Mar, [facility] [address] [id number] [address] [place] [address], [place] [address] Feb, [facility] [address] [id number] [address] [place] [address], [place] [address] January, [facility] [address] [id number] [address] [place] [address], [place] [address] Dec, [facility] [address] [id number] [address] [place] [id number] Nov, [facility] [address] [id number] [address] [place] [address], [place] [address] Aug, [facility] [address] [id number] [address] [place] [address], [place] [address] Aug, [facility] [address] [id number] [address] [place] [phone] Aug, [facility] [address] [id number] [address] [place] [address], [place] [address] Jul, [facility] [address] [id number] [address] [place] [phone] Jul, [facility] [address] [id number] [address] [place] [address], [place] [address] Jul, [facility] [address] [id number] [address] [place] [id number] 30 Jun, 2009 [facility] [address] [id number] [address] [place] [address], [place] [address] 29 Jun, 2009 [facility] [address] [id number] [address] [place] [phone] Jun, [facility] [address] [id number] [address] [place] [phone] Jun, [facility] [address] [id number] [address] [place] [phone] Jun, [facility] [address] [id number] [address] [place] [phone] Jun, [facility] [address] [id number] [address] [place] [id number] Apr, [facility] [address] [id number] [address] [place] [id number] Apr, [facility] [address] [id number] [address] [place] [phone] Feb, [facility] [address] [facility] [id number] [address] [place] [phone] January, [facility] [address] [facility] [id number] [address] [place] [phone] Dec, IMMUNIZATIONS No Known Immunizations SOCIAL HISTORY Never Assessed REASON FOR VISIT [facility] PLAN OF CARE VITAL SIGNS MEDICATIONS Medication Instructions Dosage Frequency Start Date End Date Duration S tatus metformin 1,000 mg take 1 tablet by Ora l route 2 times per day Must make and attend f/u appt for refills Nov, Active Aspirin 81 mg 1 tablet by Oral route 1 time per day 28 A 2013 Active Percocet 10-325 mg take 1 tablet by Oral route a s needed 4 times per day PRN Nov, Active Depakote ER 500 mg take 1 tablet by Ora l route 2 times per day Must make and attend f/u appt for refills Nov, Active Seroquel XR 200 mg 1 tablet by Oral route 1 time per d ay for 30 day(s) January, Active Augmentin 875-125 mg 1 tablet by Oral route 2 times pe r day for 14 day(s) Apr, Active Doxycycline Hyclate 100 mg 1 tablet by Oral rout e 2 times per day for 10 days Apr, Active Vitamin D3 1,000 unit 2 capsule by Oral route 1 time per day Apr, Active Lipitor 40 mg 1 tablet by Oral route 1 time per day 14 2013 Active Lantus 100 unit/mL inject 100 Units by Subcutaneous ro [place] 2 times per day Nov, Active Plavix 75 mg 1 tablet by Oral rou te 1 time per day Must make and attend f/u appt for refills Nov, Active ProAir HFA 90 mcg/actuation inhale 2 puf fs by Inhalation route every 4-6 hours as needed PRN shortness of breath/cough Nov, Active Nexium 40 mg take 1 capsule by Or al route 1 time per day Must make and attend f/u appt for refills Nov, Active Zetia 10 mg 1 tablet by Oral rou te 1 time per day Must make and attend f/u appt for refills Nov, Active Ambien 10 mg 1 tablet by Oral route 1 time per day at hs Nov, Active Gabapentin 300 mg 1 capsule by Oral route 2 times per day Apr, Active Actos 45 mg 1 tablet by Oral route 1 time per day Nov Active Fetzima 40 mg take 1 Capsule Unspecified by Oral route 1 time per day Sep, Active Abilify 15 mg 1 tablet by Oral route 2 times per day Nov, Active Cipro 500 mg 1 tablet by Oral route every 12 hours for 14 day(s) January, Active Furosemide 40 mg 1 tablet by Oral rou te 1 time per day Must make and attend f/u appt for refills Nov, Active Bactrim DS 800-160 mg 1 tablet by Oral route 2 times p er day for 10 day(s) Oct, Active Seroquel 50 mg 1 tablet by Oral route 3 times per day Nov, Active Flonase 50 mcg/actuation 1 sprays by Clement al route 1 time per day in each nostril Apr, Active Albuterol Sulfate 2.5 mg /3 mL (0.083 %) 1 Each by Inhalation route every 6 hours for cough and wheeze PRN for wheezing or cough Apr, Active Singulair 10 mg 1 Tablet by Oral route 1 time per day Nov, Active morphine 15 mg 1 Tablet by Oral route 1 time per day at HS Nov, Active NovoLog Flexpen 100 unit/mL inject 30 Un it by Subcutaneous route 1 time per day with evening meals Aug, Activ e Zofran ODT 8 mg 1 tablet by Oral route every 4 hours P RN nausea or vomiting Oct, Active Pyridium 100 mg 1 tablet by Oral route 3 times per day for 3 day(s) Apr, Active RESULTS No Results PROCEDURES No Known [...] Medical History skin cancer-basal cell R pentecostal (removed ) Medical History Arthritis Medical History [...] Surgical History colonoscopy 2009 ([facility]), 2013 ([facility] ) Surgical History heart cath: CAD w/ [...] to urinate 09/16/15 Hospitalization History [facility] mental health e[facility] 1999's Hospitalization History hyperkalemia 10/2017 Hospitalization History fluid in lung
--- OUTSIDE RECORDS SUMMARY | 2020-03-01 17:41 | XMS REPORT ---
Author Author Michele Verduzco Doctor Organization [facility] Address Unknown Phone Unavailable Care Team Providers Care Material Requirements Planning Manager Name Role Phone Migration, Doctor Unavailable Unavailable PROBLEMS Type Condition ICD9-CM Code LDP45-UE Code Onset Dates Condition S tatus SNOMED Code Problem Hypokalemia E87.6 Active 31276899 Problem Cough R05 Active 86184169 Problem Dysuria R30.0 Active 06799806 Problem DM neuro manif type II E11.49 Active 81997450 Problem Benign prostatic hyperplasia with lower urinary tract symptoms, unspecified morphology N40.1 Active 39800 6007 Problem Leukocytosis D72.829 Active 3595656 06 Problem Chronic pain G89.29 Active 6113583 1 Problem 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 Active 219145727 Problem Eye exam abnormal R93.8 Active 16 5667832 Problem Anemia of chronic illness D63.8 Acti ve 049020615 Problem Lymphocytosis D72.820 Active 680301 09 Problem Eustachian tube dysfunction, unspecified laterality H69.80 Active 00259805 Problem Pressure ulcer of other site, stage 3 L89.893 Active 162754073 Problem Anxiety F41.9 Active 60324757 Problem Insomnia, unspecified type G47.00 Act sharon 032191706 Problem Essential hypertension I10 Active 56732388 Problem Morbid obesity E66.01 Active 56484 6002 Problem Polyneuropathy associated with underlying disease G63 Active 425169637 Problem Diabetic polyneuropathy associated with type 2 d iabetes mellitus E11.42 Active 41244350 Problem Retinal edema H35.81 Active 842044 6 Problem Chronic lymphocytic leukemia C91.10 A ctive 89926657 Problem Bilateral primary osteoarthritis of knee M17.0 Active 332313632 Problem Falling R29.6 Active 944174249 Problem Bipolar disorder, in partial remission, most rec ent episode depressed F31.75 Active 27128574 Problem Pure hypercholesterolemia E78.00 Acti ve 948183106 Problem Skin cancer C44.90 Active 58373283 7 Problem Reactive airway disease J45.909 Active 125544483323 Problem Bipolar disorder F31.9 Active 137 85198 Problem Diabetes E11.9 Active 65381119 Problem Bipolar I disorder, most recent episode (or curr ent) mixed, moderate F31.62 Active 94091232 Problem Primary osteoarthritis of right knee M17.11 Active 825192457480036 Problem Other chronic pain G89.29 Active 8 8551833 Problem Other iron deficiency anemia D50.8 A ctive 23385330 Problem Mild cognitive impairment G31.84 Acti ve [id number] ALLERGIES No Information ENCOUNTERS Encounter Location Date Diagnosis [facility] [address] [id number] [address] [place] [id number] January, [facility] [address] [id number] [address] [place] [address] Dec, [facility] [address] [facility] [id number] [address] [place] [address] Dec, [facility] [address] [facility] [id number] [address] [place] [id number] Dec, [facility] [address] [id number] [address] [place] [address] Nov, [facility] [address] [facility] [id number] [address] [place] [address] Nov, Chronic pain G89.29 [facility] [address] [facility] [id number] [address] [place] [phone] Nov, Bipolar disorder, in partial remission, most recent episode depressed F31.75 and Mild cognitive impairment G31.84 [facility] [address] [facility] [id number] [address] [place] [id number] 18 Nov, 2018 Bipolar disorder F31.9 [facility] [address] [facility] [id number] [address] [place] [address] 04 Nov, 2018 Encounter for Medicare annua [...] unspecified morphology N40.1 and Essential hypertension I10 [address] [address] Oct, Chronic pain G89.[address] [address] Oct, Diabetes E11.[address] [address] Oct, Bipolar I disorder, most rec ent episode (or current) mixed, moderate F31.62 and Mild cognitive impairment G31.[address] [address] Oct, Bipolar I disorder, most rec ent episode (or current) mixed, moderate F31.62 and Mild cognitive impairment G31.[address] [address] Sep, Bipolar I disorder, most rec ent episode (or current) mixed, moderate F31.62 and Mild cognitive impairment G31.84 [place] [id number] [address] [place] [address] Sep, [address] [address] Sep, Diabetes E11.9 ; Hypoxia R09 .02 ; Hyperglycemia R73.9 ; Therapeutic drug monitoring Z51.81 ; BMI 50.0-59.9, adult Z68.43 and Skin cancer C44.90 [place] [id number] [address] [place] [address] Sep, Chronic pain G89.[address] [address] Sep, Bipolar I disorder, most rec ent episode (or current) mixed, moderate F31.62 [facility] [address] [id number] [address] [place] [id number] Sep, [facility] [address] [id number] [address] [place] [phone] Sep, [facility] [address] [id number] [address] [place] [address] Aug, Chronic pain G89.29 [facility] [address] [id number] [address] [place] [id number] Aug, Bipolar I disorder, most rec ent episode (or current) mixed, moderate F31.62 [facility] [address] [id number] [address] [place] [phone] Aug, Bipolar I disorder, most rec ent episode (or current) mixed, moderate F31.62 and Mild cognitive impairment G31.84 [facility] [address] [id number] [address] [place] [id number] Jul, [facility] [address] [id number] [address] [place] [address] Jul, Chronic pain G89.29 [facility] [address] [id number] [address] [place] [address] Jul, Bipolar I disorder, most rec ent episode (or current) mixed, moderate F31.62 and Mild cognitive impairment G31.84 [facility] [address] [id number] [address] [place] [address] Jul, Bipolar I disorder, most rec ent episode (or current) mixed, moderate F31.62 and MCI (mild cognitive impairment) G31.84 [facility] [address] [id number] [address] [place] [id number] Jul, [facility] [address] [id number] [address] [place] [id number] Jul, [facility] [address] [facility] [id number] [address] [place] [id number] Jul, Bipolar I disorder, most rec ent episode (or current) mixed, moderate F31.62 [facility] [address] [facility] [id number] [address] [place] [address] Jul, Chronic pain G89.29 [facility] [address] [facility] [id number] [address] [place] [address] Jun, Bipolar I disorder, most rec ent episode (or current) mixed, moderate F31.62 [facility] [address] [facility] [id number] [address] [place] [id number] Jun, Pre-procedure lab exam Z01.8 12 [place] [address] [facility] [id number] [address] [place] [phone] Jun, [facility] [address] [facility] [id number] [place] [id number] Jun, [facility] [address] [place] [id number] [address] [place] [id number] Jun, [place] [id number] [facility] [id number] [address] [place] [address] Jun, Forgetfulness R68.89 ; Pre-s yncope R55 ; Localized edema R60.0 ; Other iron deficiency anemia D50.8 and BMI 50.0-59.9, adult Z68.43 [facility] [address] [facility] [id number] [address] [place] [address] Jun, Chronic pain G89.29 [facility] [address] [place] [id number] [address] [place] [address] Jun, Chronic pain G89.29 [facility] [address] [facility] [id number] [address] [place] [address] Jun, Bipolar I disorder, most rec ent episode (or current) mixed, moderate F31.62 [facility] [address] [place] [id number] [address] [place] [address] May, Chronic pain G89.29 [facility] [address] [place] [id number] [address] [place] [address] Apr, [place] [address] [place] [id number] [address] [place] [address] Apr, Chronic pain G89.29 [facility] [address] [place] [id number] [address] [place] [address] Apr, Primary osteoarthritis of ri ght knee M17.11 [place] [address] [facility] [id number] [address] [place] [phone] Mar, [place] [address] [place] [id number] [place] [address] Mar, BMI 50.0-59.9, adult Z68.43 and Bipolar disorder, in partial remission, most recent episode depressed F31.75 [place] [address] [address] Mar, Diabetes E11.9 ; Pure hyperc holesterolemia E78.00 ; Essential hypertension I10 ; Nausea with vomiting, unspecified R11.2 and Headache, unspecified headache type R51 [place] [address] [place] [id number] [place] [address] Mar, Bipolar I disorder, most rec ent episode (or current) mixed, moderate F31.62 [place] [address] [place] [id number] [address] [place] [address] Mar, Bipolar I disorder, most rec ent episode (or current) mixed, moderate F31.62 [place] [address] [place] [id number] [address] [place] [address] Mar, Chronic pain G89.29 [place] [address] [place] [id number] [address] [place] [address] Mar, Bipolar I disorder, most rec ent episode (or current) mixed, moderate F31.62 [place] [address] [place] [id number] [address] [place] [id number] 18 Feb, 2018 Bipolar I disorder, most rec ent episode (or current) mixed, moderate F31.62 [facility] [address] [id number] [address] [place] [address] 14 Feb, 2018 Chronic pain G89.29 [facility] [address] [id number] [address] [place] [address] 06 Feb, 2018 Decubitus ulcer of right josselin t, stage 3 L89.893 and BMI 50.0-59.9, adult Z68.43 [facility] [address] [id number] [address] [place] [address] Feb, Bipolar I disorder, most rec ent episode (or current) mixed, moderate F31.62 [facility] [address] [id number] [address] [place] [id number] Feb, [place] [address] [facility] [id number] [address] [place] [phone] January, [facility] [address] [id number] [address] [place] [id number] January, Chronic pain G89.29 [facility] [address] [id number] [address] [place] [id number] January, Bipolar I disorder, most rec ent episode (or current) mixed, moderate F31.62 [facility] [address] [id number] [address] [place] [address] January, Bipolar I disorder, most rec ent episode (or current) mixed, moderate F31.62 [facility] [address] [id number] [address] [place] [id number] Dec, Bipolar I disorder, most rec ent episode (or current) mixed, moderate F31.62 and BMI 50.0-59.9, adult Z68.43 [facility] [address] [id number] [address] [place] [address] Dec, Bipolar I disorder, most rec ent episode (or current) mixed, moderate F31.62 [place] [address] [place] [id number] [address] [place] [address] Dec, Chronic pain G89.29 [place] [address] [place] [id number] [address] [place] [address] Dec, DM neuro manif type II E11.4 9 ; Right flank pain R10.9 ; intermediate 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 Z79.891 ; Encounter for medication monitoring Z51.81 and BMI 50.0-59.9, adult Z68.43 [place] [address] [place] [id number] [address] [place] [address] Dec, Bipolar I disorder, most rec ent episode (or current) mixed, moderate F31.62 [place] [address] [place] [id number] [place] [address] Nov, Bipolar I disorder, most rec ent episode (or current) mixed, moderate F31.62 [place] [address] [place] [id number] [address] [place] [address] Nov, Chronic pain G89.29 [place] [address] [place] [id number] [address] [place] [address] Nov, Bipolar I disorder, most rec ent episode (or current) mixed, moderate F31.62 [place] [address] [place] [id number] [address] [place] [address] Nov, Hypokalemia E87.6 [place] [address] [place] [id number] [address] [place] [id number] Nov, Bipolar I disorder, most rec ent episode (or current) mixed, moderate F31.62 [place] [address] [place] [id number] [address] [place] [address] Oct, Chronic pain G89.29 [place] [address] [place] [id number] [address] [place] [address] Oct, BMI 50.0-59.9, adult Z68.43 and Bipolar I disorder, most recent episode (or current) mixed, moderate F31.62 [facility] [address] [facility] [id number] [address] [place] [id number] Oct, Bipolar I disorder, most rec ent episode (or current) mixed, moderate F31.62 [facility] [address] [facility] [id number] [address] [place] [address] Oct, [facility] [address] [facility] [id number] [address] [place] [phone] Oct, Hypokalemia E87.6 [facility] [address] [facility] [id number] [address] [place] [address] Oct, DM neuro manif type II E11.4 [address] [place] [address] [facility] [id number] [address] [place] [address] Oct, Bipolar I disorder, most rec ent episode (or current) mixed, moderate F31.62 [facility] [address] [facility] [id number] [address] [place] [address] Oct, Bipolar I disorder, most rec ent episode (or current) mixed, moderate F31.62 [place] [address] [facility] [id number] [address] [place] [address] 14 Oct, 2017 Hyperkalemia E87.5 ; Falling R29.6 ; BMI 50.0-59.9, adult Z68.43 and Acute left ankle pain M25.572 [facility] [address] [facility] [id number] [address] [place] [address] Oct, DM neuro manif type II E11.4 9 [facility] [address] [facility] [id number] [address] [place] [address] Oct, [facility] [address] [facility] [id number] [address] [place] [address] Sep, Chronic pain G89.29 [facility] [address] [place] [id number] [address] [place] [address] Sep, [place] [address] [place] [id number] [address] [place] [address] Sep, Bilateral primary osteoarthr itis of knee M17.0 [place] [address] [place] [id number] [address] [place] [id number] 18 Sep, 2017 Generalized edema R60.1 [place] [address] [place] [id number] [address] [place] [id number] 16 Sep, 2017 Bipolar I disorder, most rec ent episode (or current) mixed, moderate F31.62 [place] [address] [place] [id number] [address] [place] [address] 15 Sep, 2017 Hypoxia R09.02 ; Other hyper volemia E87.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 ; Anemia of chronic illness D63.8 and BMI 50.0- 59.9, adult Z68.43 [place] [address] [place] [id number] [address] [place] [address] Sep, [place] [address] [place] [id number] [place] [address] Sep, Bipolar I disorder, most rec ent episode (or current) mixed, moderate F31.62 [place] [address] [place] [id number] [address] [place] [address] Aug, Chronic pain G89.29 [place] [address] [place] [id number] [address] [place] [address] Aug, Generalized edema R60.1 [place] [address] [place] [id number] [address] [place] [address] Aug, [place] [address] [place] [id number] [address] [place] [address] Aug, [place] [address] [place] [id number] [address] [place] [address] 14 Aug, 2017 Bipolar I disorder, most rec ent episode (or current) mixed, moderate F31.62 [facility] [address] [facility] [id number] [address] [place] [id number] Aug, Bipolar I disorder, most rec ent episode (or current) mixed, moderate F31.62 [facility] [address] [place] [id number] [address] [place] [address] Aug, Chronic pain G89.29 [facility] [address] [place] [id number] [address] [place] [address] Jul, Bipolar I disorder, most rec ent episode (or current) mixed, moderate F31.62 [place] [address] [place] [id number] [address] [place] [address] Jul, Bipolar I disorder, most rec ent episode (or current) mixed, moderate F31.62 and BMI 60.0-69.9, adult Z68.44 [place] [address] [place] [id number] [address] [place] [address] Jul, Bipolar I disorder, most rec ent episode (or current) mixed, moderate F31.62 [place] [address] [place] [id number] [address] [place] [address] Jul, Chronic pain G89.29 [place] [address] [place] [id number] [address] [place] [address] Jul, Bipolar I disorder, most rec ent episode (or current) mixed, moderate F31.62 [place] [address] [place] [id number] [address] [place] [address] Jun, Polyneuropathy associated wi th underlying disease G63 and Diabetes E11.9 [place] [address] [place] [id number] [address] [place] [address] Jun, Bipolar I disorder, most rec ent episode (or current) mixed, moderate F31.62 [facility] [address] [place] [id number] [address] [place] [address] Jun, Chronic pain G89.29 [facility] [address] [id number] [address] [place] [id number] 27 May, 2017 Bipolar I disorder, most rec ent episode (or current) mixed, moderate F31.62 [facility] [address] [id number] [address] [place] [id number] May, Bipolar I disorder, most rec ent episode (or current) mixed, moderate F31.62 [facility] [address] [id number] [address] [place] [address] May, Diabetic polyneuropathy asso ciated with type 2 diabetes mellitus E11.42 [facility] [address] [id number] [address] [place] [address] 18 May, 2017 Bipolar I disorder, most rec ent episode (or current) mixed, moderate F31.62 [facility] [address] [id number] [address] [place] [address] 13 May, 2017 Bipolar I disorder, most rec ent episode (or current) mixed, moderate F31.62 [facility] [address] [id number] [address] [place] [address] May, Chronic pain G89.29 [facility] [address] [id number] [address] [place] [address] Apr, Bipolar I disorder, most rec ent episode (or current) mixed, moderate F31.62 [facility] [address] [id number] [address] [place] [address] Apr, [facility] [address] [id number] [address] [place] [address] Apr, Chronic pain G89.29 and DM n euro manif type II E11.49 [facility] [address] [id number] [address] [place] [address] Apr, [facility] [address] [id number] [address] [place] [address] Apr, Bipolar I disorder, most rec ent episode (or current) mixed, moderate F31.62 [facility] [address] [id number] [address] [place] [address] Apr, Chronic pain G89.29 [facility] [address] [id number] [address] [place] [address] Apr, Iliotibial band syndrome, le ft M76.32 [facility] [address] [id number] [address] [place] [address] Apr, Bipolar I disorder, most rec ent episode (or current) mixed, moderate F31.62 [facility] [address] [id number] [address] [place] [address] Mar, Bipolar I disorder, most rec ent episode (or current) mixed, moderate F31.62 [facility] [address] [id number] [address] [place] [address] Mar, Bipolar I disorder, most rec ent episode (or current) mixed, moderate F31.62 [facility] [address] [id number] [address] [place] [address] Mar, [facility] [address] [id number] [address] [place] [address] Mar, Bipolar I disorder, most rec ent episode (or current) mixed, moderate F31.62 [facility] [address] [id number] [address] [place] [id number] Mar, Chronic pain G89.29 [facility] [address] [id number] [address] [place] [address] Mar, Bipolar I disorder, most rec ent episode (or current) mixed, moderate F31.62 [facility] [address] [facility] [id number] [address] [place] [address] Mar, Bipolar I disorder, most rec ent episode (or current) mixed, moderate F31.62 [facility] [address] [facility] [id number] [address] [place] [address] Mar, Acute pain of left knee M25. 562 ; Left hip pain M25.552 ; Generalized edema R60.1 and Tongue swelling R22.0 [facility] [address] [id number] [address] [place] [address] Mar, [facility] [address] [id number] [address] [place] [id number] Feb, Chronic pain G89.29 [facility] [address] [id number] [address] [place] [address] Feb, Diabetes E11.9 [facility] [address] [id number] [address] [place] [address] January, Chronic pain G89.29 [facility] [address] [facility] [id number] [address] [place] [id number] January, [facility] [address] [facility] [id number] [address] [place] [id number] January, Bipolar I disorder, most rec ent episode (or current) mixed, moderate F31.62 [facility] [address] [facility] [id number] [address] [place] [id number] Dec, Bipolar I disorder, most rec ent episode (or current) mixed, moderate F31.62 [facility] [address] [facility] [id number] [address] [place] [phone] Dec, Chronic pain G89.29 [facility] [address] [facility] [id number] [address] [place] [phone] Dec, Bipolar I disorder, most rec ent episode (or current) mixed, moderate F31.62 [facility] [address] [id number] [address] [place] [id number] Dec, Diabetes E11.9 ; Essential h ypertension I10 ; Chronic pain G89.29 and Morbid obesity E66.01 [facility] [address] [id number] [address] [place] [phone] Dec, [facility] [address] [facility] [id number] [address] [place] [id number] Dec, Bipolar I disorder, most rec ent episode (or current) mixed, moderate F31.62 [facility] [address] [facility] [id number] [address] [place] [id number] Dec, Bipolar I disorder, most rec ent episode (or current) mixed, moderate F31.62 [facility] [address] [facility] [id number] [address] [place] [id number] Nov, Chronic pain G89.29 [facility] [address] [id number] [address] [place] [id number] Nov, Bipolar I disorder, most rec ent episode (or current) mixed, moderate F31.62 [facility] [address] [facility] [id number] [place] [address] Nov, [facility] [address] [facility] [id number] [address] [place] [id number] Nov, Bipolar I disorder, most rec ent episode (or current) mixed, moderate F31.62 [facility] [address] [facility] [id number] [address] [place] [address] Nov, Bipolar I disorder, most rec ent episode (or current) mixed, moderate F31.62 [facility] [address] [facility] [id number] [address] [place] [address] Nov, [facility] [address] [facility] [id number] [address] [place] [address] Nov, [facility] [address] [facility] [id number] [address] [place] [address] Nov, [facility] [address] [facility] [id number] [address] [place] [address] Oct, Chronic pain G89.29 [facility] [address] 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 [id number] [address] [place] [id number] Oct, [facility] [address] [id number] [address] [place] [id number] Oct, Diabetes E11.9 [facility] [address] [facility] [id number] [address] [place] [address] Oct, Bipolar I disorder, most rec ent episode (or current) mixed, moderate F31.62 [facility] [address] [facility] [id number] [address] [place] [address] Sep, Chronic pain G89.29 [facility] [address] [id number] [address] [place] [id number] Sep, Chronic pain G89.29 [facility] [address] [facility] [id number] [address] [place] [address] Aug, Chronic pain G89.29 [facility] [address] [facility] [id number] [address] [place] [id number] Jul, [facility] [address] [facility] [id number] [address] [place] [address] Jul, Diabetes E11.9 [facility] [address] [id number] [address] [place] [address] Jul, Chronic pain G89.29 [facility] [address] [facility] [id number] [address] [place] [address] Jul, Bipolar I disorder, most rec ent episode (or current) mixed, moderate F31.62 [facility] [address] [facility] [id number] [address] [place] [id number] Jun, Bipolar I disorder, most rec ent episode (or current) mixed, moderate F31.62 [facility] [address] [facility] [id number] [address] [place] [id number] Jun, [facility] [address] [facility] [id number] [address] [place] [id number] Jun, Bipolar I disorder, most rec ent episode (or current) mixed, moderate F31.62 [facility] [address] [facility] [id number] [address] [place] [address] May, Insomnia, unspecified type G 47.00 [facility] [address] [facility] [id number] [address] [place] [address] May, Bipolar I disorder, most rec ent episode (or current) mixed, moderate F31.62 [facility] [address] [place] [id number] [address] [place] [id number] May, [facility] [address] [facility] [id number] [address] [place] [id number] May, Bipolar I disorder, most rec ent episode (or current) mixed, moderate F31.62 [facility] [address] [facility] [id number] [address] [place] [address] May, Diabetes E11.9 and Essential hypertension I10 [facility] [address] [facility] [id number] [address] [place] [address] Apr, Chronic pain G89.29 [facility] [address] [id number] [address] [place] [id number] Apr, Bipolar I disorder, most rec ent episode (or current) mixed, moderate F31.62 [facility] [address] [facility] [id number] [address] [place] [id number] Apr, [facility] [address] [facility] [id number] [address] [place] [address] Apr, [facility] [address] [facility] [id number] [address] [place] [address] Mar, Chronic pain G89.29 ; Headac he, unspecified headache type R51 ; Neuropathy G62.9 ; Pain of right hip joint M25.551 and Essential hypertension I10 [place] [address] [facility] [id number] [address] [place] [id number] Mar, Chronic pain G89.29 [place] [address] [facility] [id number] [address] [place] [address] Mar, Bipolar I disorder, most rec ent episode (or current) mixed, moderate F31.62 [place] [address] [facility] [id number] [address] [place] [id number] Feb, Bipolar I disorder, most rec ent episode (or current) mixed, moderate F31.62 and Insomnia, unspecified type G47.00 [place] [address] [facility] [id number] [address] [place] [address] Feb, Chronic pain G89.29 [place] [address] [facility] [id number] [address] [place] [id number] Feb, Bipolar I disorder, most rec ent episode (or current) mixed, moderate F31.62 [place] [address] [facility] [id number] [address] [place] [id number] January, Bipolar I disorder, most rec ent episode (or current) mixed, moderate F31.62 [place] [address] [facility] [id number] [address] [place] [id number] January, Chronic pain G89.29 [place] [address] [facility] [id number] [address] [place] [id number] January, Chronic pain G89.29 and Esse ntial hypertension I10 [place] [address] [facility] [id number] [address] [place] [address] January, Bipolar I disorder, most rec ent episode (or current) mixed, moderate F31.62 [place] [address] [facility] [id number] [address] [place] [address] Dec, [facility] [address] [facility] [id number] [address] [place] [phone] Dec, [facility] [address] [facility] [id number] [address] [place] [phone] Dec, [facility] [address] [facility] [id number] [address] [place] [phone] Dec, [facility] [address] [facility] [id number] [address] [place] [phone] Nov, Reactive airway disease J45. 909 [facility] [address] [facility] [id number] [address] [place] [id number] Nov, [facility] [address] [facility] [id number] [address] [place] [id number] Nov, [facility] [address] [place] [id number] [address] [place] [id number] Nov, [facility] [address] [facility] [id number] [address] [place] [id number] Nov, [facility] [address] [facility] [id number] [address] [place] [address] Nov, Onychomycosis B35.1 ; Hammer toe M20.40 ; [place] or callus L84 and DM neuro manif type II E11.49 [facility] [address] [facility] [id number] [address] [place] [address] Nov, Chronic pain G89.29 ; Leukoc ytosis D72.829 and Diabetes E11.9 [facility] [address] [facility] [id number] [address] [place] [phone] Nov, [facility] [address] [place] [id number] [address] [place] [phone] Oct, Bronchitis J40 [facility] [address] [facility] [id number] [address] [place] [address] Oct, [place] [address] [phone] Oct, [place] [address] [address] Oct, Mastoiditis, unspecified lat erality H70.90 and Type 2 diabetes mellitus with complication E11.8 [place] [address] [address] Sep, [place] [address] [address] Sep, Dysuria R30.0 ; Cough R05 ; Benign prostatic hyperplasia with lower urinary tract symptoms, unspecified morphology N40.1 ; Hypokalemia E87.6 and Eustachian tube dysfunction, unspecified laterality H69.80 [place] [address] [address] Sep, Moderate mixed bipolar I dis order F31.62 [place] [address] [address] Sep, Hypokalemia E87.6 [place] [address] [address] Sep, [place] [address] [address] Sep, Upper respiratory tract infe ction, unspecified type J06.9 [place] [address] [address] Aug, [place] [address] [address] Aug, Dysuria R30.0 [place] [address] [place] [id number] [place] [address] Aug, [place] [address] [address] Jul, [facility] [address] [id number] [address] [place] [address] Jul, [facility] [address] [id number] [address] [place] [id number] Jul, [facility] [address] [id number] [address] [place] [phone] Jul, [facility] [address] [id number] [address] [place] [address] Jun, [facility] [address] [id number] [address] [place] [id number] Jun, [facility] [address] [id number] [address] [place] [id number] Jun, [facility] [address] [id number] [address] [place] [address] May, [facility] [address] [id number] [address] [place] [id number] May, Bipolar I disorder, most rec ent episode (or current) mixed, moderate 296.62 [facility] [address] [id number] [address] [place] [address] May, [facility] [address] [id number] [address] [place] [id number] May, Bipolar I disorder, most rec ent episode (or current) mixed, moderate 296.62 and Major depressive disorder, recurrent episode, severe, specified as with psychotic behavior 296.34 [facility] [address] [id number] [address] [place] [address] May, Bipolar I disorder, most rec ent episode (or current) mixed, moderate 296.62 [facility] [address] [id number] [address] [place] [id number] May, [facility] [address] [id number] [address] [place] [id number] Apr, [facility] [address] [id number] [address] [place] [address] Apr, [facility] [address] [facility] [id number] [address] [place] [address] Apr, Unspecified disorder of kidn ey and ureter 593.9 and Diabetes mellitus type 2, uncontrolled 250.02 [facility] [address] [facility] [id number] [address] [place] [id number] Apr, [facility] [address] [facility] [id number] [address] [place] [phone] Apr, [facility] [address] [facility] [id number] [address] [place] [address] Apr, [facility] [address] [place] [id number] [address] [place] [address] Apr, [facility] [address] [place] [id number] [address] [place] [address] Apr, Diabetes mellitus type II, u ncontrolled 250.02 [facility] [address] [facility] [id number] [address] [place] [address] Apr, [facility] [address] [place] [id number] [address] [place] [phone] Mar, [facility] [address] [place] [id number] [address] [place] [address] Mar, [facility] [address] [place] [id number] [address] [place] [address] Mar, [facility] [address] [facility] [id number] [address] [place] [address] Mar, Major depressive disorder, r ecurrent episode, severe, specified as with psychotic behavior 296.34 and Bipolar I disorder, most recent episode (or current) mixed, moderate 296.62 [facility] [address] [place] [id number] [address] [place] [address] Mar, Diabetes 250.00 ; Anuria 788 .5 ; Nausea and vomiting 787.01 and Diarrhea 787.91 [facility] [address] [address] Mar, Diabetes 250.00 [facility] [address] [address] Mar, [facility] [address] [address] Mar, Diabetes 250.00 [facility] [address] [address] Mar, [facility] [address] [address] Mar, [facility] [address] [address] Mar, [facility] [address] [address] Mar, [facility] [address] [address] Mar, Bipolar I disorder, most rec ent episode (or current) mixed, moderate 296.62 and Major depressive disorder, recurrent episode, severe, specified as with psychotic behavior 296.34 [facility] [address] [address] Mar, Magnesium deficiency 275.2 ; Hypokalemia 276.8 ; Nausea & vomiting 787.01 and Diabetes mellitus type 2, uncontrolled 250.02 [facility] [address] [place] [id number] [address] [place] [address] Feb, [facility] [address] [address] Feb, Bipolar I disorder, most rec ent episode (or current) mixed, moderate 296.62 [facility] [address] [address] Feb, Nausea and vomiting 787.01 ; Left elbow pain 719.42 ; Anuria 788.5 and Diabetes 250.00 [facility] [address] [facility] [id number] [address] [place] [id number] Feb, [facility] [address] [facility] [id number] [address] [place] [address] Feb, Hypopotassemia 276.8 and Hyp okalemia 276.8 [facility] [address] [facility] [id number] [address] [place] [address] Feb, Hypopotassemia 276.8 and Hyp okalemia 276.8 [facility] [address] [facility] [id number] [address] [place] [address] Feb, Seborrheic keratoses 702.19 [facility] [address] [facility] [id number] [address] [place] [address] Feb, Hypopotassemia 276.8 and Low magnesium levels 275.2 [facility] [address] [place] [id number] [address] [place] [address] January, [facility] [address] [facility] [id number] [address] [place] [phone] January, [facility] [address] [place] [id number] [address] [place] [id number] January, [facility] [address] [place] [id number] [address] [place] [address] January, Scalp lesion 709.9 [facility] [address] [place] [id number] [address] [place] [address] January, [facility] [address] [place] [id number] [address] [place] [address] Dec, Tear of medial cartilage or meniscus of knee, current 836.0 and 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 [facility] [address] 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 [facility] [address] [id number] [address] [place] [address], [place] [address] 14 Dec, 2014 [facility] [address] [id number] [address] [place] [address], [place] [address] Dec, [facility] [address] [id number] [address] [place] [address], [place] [address] Nov, [facility] [address] [id number] [address] [place] [address], [place] [address] Nov, [facility] [address] [id number] [address] [place] [address], [place] [address] Nov, [facility] [address] [id number] [address] [place] [address], [place] [address] Nov, [facility] [address] [id number] [address] [place] [address], [place] [address] Nov, [facility] [address] [id number] [address] [place] [address], [place] [address] Nov, [facility] [address] [id number] [address] [place] [address], [place] [address] Nov, [facility] [address] [id number] [address] [place] [address], [place] [address] Nov, [facility] [address] [id number] [address] [place] [address], [place] [address] Nov, [facility] [address] [id number] [address] [place] [address], [place] [address] Nov, [facility] [address] [id number] [address] [place] [address], [place] [address] Nov, [facility] [address] [id number] [address] [place] [address], [place] [address] Nov, [facility] [address] [id number] [address] [place] [address], [place] [address] Oct, 2014 [facility] [address] [id number] [address] [place] [address], [place] [address] Oct, 2014 [facility] [address] [id number] [address] [place] [address], [place] [address] Oct, 2014 [facility] [address] [id number] [address] [place] [address], [place] [address] Oct, 2014 [facility] [address] [id number] [address] [place] [address], [place] [address] Oct, 2014 [facility] [address] [id number] [address] [place] [address], [place] [address] Oct, 2014 [facility] [address] [id number] [address] [place] [address], [place] [address] Oct, 2014 [facility] [address] [id number] [address] [place] [phone] Oct, 2014 [facility] [address] [id number] [address] [place] [address], [place] [address] Oct, [facility] [address] [id number] [address] [place] [address] Sep, [facility] [address] [id number] [address] [place] [address] Sep, [facility] [address] [id number] [address] [place] [address] Sep, [facility] [address] [id number] [address] [place] [address] Sep, [facility] [address] [id number] [address] [place] [address] Sep, [facility] [address] [id number] [address] [place] [address] Sep, [facility] [address] [id number] [address] [place] [address] Sep, [facility] [address] [id number] [address] [place] [address], [place] [address] Sep, [facility] [address] [id number] [address] [place] [address], [place] [address] Sep, [facility] [address] [id number] [address] [place] [address], [place] [address] Sep, [facility] [address] [id number] [address] [place] [address], [place] [address] Sep, [facility] [address] [id number] [address] [place] [address], [place] [address] Sep, [facility] [address] [id number] [address] [place] [address], [place] [address] Sep, [facility] [address] [id number] [address] [place] [address], [place] [address] Sep, [facility] [address] [id number] [address] [place] [address], [place] [address] Sep, [facility] [address] [id number] [address] [place] [address], [place] [address] Sep, [facility] [address] [id number] [address] [place] [address], [place] [address] Aug, [facility] [address] [id number] [address] [place] [address], [place] [address] Aug, [facility] [address] [id number] [address] [place] [address], [place] [address] Aug, [facility] [address] [id number] [address] [place] [address], [place] [address] Aug, [facility] [address] [id number] [address] [place] [address], [place] [address] Aug, [facility] [address] [id number] [address] [place] [address], [place] [address] Aug, [facility] [address] [id number] [facility] [place] [address] Aug, [facility] [address] [id number] [facility] [place] [address] Aug, [facility] [address] [id number] [facility] [place] [address] Aug, [facility] [address] [id number] [facility] [place] [address] Aug, [facility] [address] [id number] [address] [place] [address], [place] [address] Aug, [facility] [address] [place] [id number] Aug, [facility] [address] [id number] [address] [place] [address], [place] [address] Aug, [facility] [address] [id number] [address] [place] [address], [place] [address] Aug, [facility] [address] [id number] [address] [place] [address], [place] [address] Aug, [facility] [address] [id number] [address] [place] [address], [place] [address] Aug, [facility] [address] [id number] [address] [place] [address], [place] [address] Aug, [facility] [address] [id number] [address] [place] [address], [place] [address] Aug, [facility] [address] [id number] [address] [place] [address], [place] [address] Aug, [facility] [address] [id number] [address] [place] [address], [place] [address] Aug, [facility] [address] [id number] [address] [place] [address], [place] [address] Aug, [facility] [address] [id number] [address] [place] [address], [place] [address] Aug, [facility] [address] [id number] [address] [place] [address], [place] [address] Aug, [facility] [address] [id number] [address] [place] [address], [place] [address] Aug, [facility] [address] [id number] [address] [place] [address], [place] [address] Aug, [facility] [address] [id number] [address] [place] [address], [place] [address] Aug, [facility] [address] [id number] [address] [place] [address], [place] [address] Aug, [facility] [address] [id number] [address] [place] [address], [place] [address] Aug, [facility] [address] [id number] [address] [place] [address], [place] [address] Aug, [facility] [address] [id number] [address] [place] [address], [place] [address] Aug, [facility] [address] [id number] [address] [place] [address], [place] [address] Jul, [facility] [facility] [address] [id number] [address] [place] [address], [place] [address] Jul, [facility] [address] [id number] [address] [place] [address], [place] [address] Jul, [facility] [address] [id number] [address] [place] [address], [place] [address] Jul, [facility] [address] [id number] [address] [place] [address], [place] [address] Jul, [facility] [address] [id number] [address] [place] [address], [place] [address] Jul, [facility] [address] [id number] [address] [place] [address], [place] [address] Jul, [facility] [address] [id number] [address] [place] [address] Jul, [facility] [address] [id number] [address] [place] [address], [place] [address] Jul, [facility] [address] [id number] [address] [place] [address] Jul, [facility] [address] [id number] [address] [place] [address], [place] [address] Jun, [facility] [address] [id number] [address] [place] [address], [place] [address] Jun, [facility] [address] [id number] [address] [place] [address], [place] [address] Jun, [facility] [address] [id number] [address] [place] [address], [place] [address] Jun, [facility] [address] [id number] [address] [place] [address], [place] [address] Jun, [facility] [address] [id number] [address] [place] [address], [place] [address] Jun, [facility] [address] [id number] [address] [place] [address], [place] [address] Jun, [facility] [address] [id number] [address] [place] [address], [place] [address] Jun, [facility] [address] [id number] [address] [place] [address] Jun, [facility] [address] [id number] [address] [place] [address] Jun, [facility] [address] [id number] [address] [place] [address], [place] [address] May, [facility] [address] [id number] [address] [place] [address], [place] [address] 29 May, 2014 [facility] [address] [id number] [address] [place] [address], [place] [address] May, [facility] [address] [id number] [facility] [place] [address] 26 Sep, 2013 [facility] [address] [id number] [facility] [place] [address] 17 Sep, 2013 [facility] [address] [id number] [facility] [place] [address] 17 May, 2013 [facility] [address] [id number] [address] [place] [address], [place] [address] 15 May, 2013 [facility] [address] [id number] [address] [place] [address], [place] [address] 15 May, 2013 [facility] [address] [id number] [address] [place] [address], [place] [address] 15 May, 2013 [facility] [address] [id number] [address] [place] [address], [place] [address] 15 May, 2013 [facility] [address] [id number] [address] [place] [address], [place] [address] 10 May, 2013 [facility] [address] [id number] [address] [place] [address], [place] [address] 10 May, 2013 [facility] [address] [id number] [address] [place] [address], [place] [address] 09 May, 2013 [facility] [address] [id number] [address] [place] [address], [place] [address] 09 May, 2013 [facility] [address] [id number] [address] [place] [address], [place] [address] 04 May, 2013 [facility] [address] [id number] [address] [place] [address], [place] [address] May, 2013 [facility] [address] [id number] [address] [place] [address], [place] [address] Apr, [facility] [address] [id number] [address] [place] [address], [place] [address] Apr, [facility] [address] [id number] [address] [place] [address], [place] [address] Apr, [facility] [address] [id number] [facility] [place] [address] Apr, [facility] [address] [id number] [facility] [place] [address] Apr, [facility] [address] [id number] [facility] [place] [address] Apr, [facility] [address] [id number] [address] [place] [address], [place] [address] Apr, [facility] [address] [id number] [address] [place] [address], [place] [address] Apr, [facility] [address] [id number] [address] [place] [address], [place] [address] Apr, [facility] [address] [id number] [address] [place] [address], [place] [address] Apr, [facility] [address] [id number] [address] [place] [address], [place] [address] Apr, [facility] [address] [id number] [address] [place] [address], [place] [address] Apr, [facility] [address] [id number] [address] [place] [address], [place] [address] Apr, [facility] [address] [id number] [address] [place] [address], [place] [address] Apr, [facility] [address] [id number] [address] [place] [address], [place] [address] Apr, [facility] [address] [id number] [address] [place] [address], [place] [address] Mar, [facility] [address] [id number] [address] [place] [address], [place] [address] Mar, [facility] [address] [id number] [address] [place] [address], [place] [address] Mar, [facility] [address] [id number] [address] [place] [address], [place] [address] Mar, 2013 [facility] [address] [id number] [facility] [place] [address] Mar, 2013 [facility] [address] [id number] [address] [place] [address], [place] [address] Mar, 2013 [facility] [address] [id number] [address] [place] [address], [place] [address] Mar, 2013 [facility] [address] [id number] [address] [place] [address], [place] [address] Mar, 2013 [facility] [address] [id number] [address] [place] [address], [place] [address] Mar, 2013 [facility] [address] [id number] [address] [place] [address], [place] [address] Mar, 2013 [facility] [address] [id number] [address] [place] [address], [place] [address] Mar, 2013 [facility] [address] [id number] [address] [place] [address], [place] [address] Mar, 2013 [facility] [address] [id number] [address] [place] [address], [place] [address] Mar, 2013 [facility] [address] [id number] [address] [place] [address], [place] [address] Mar, 2013 [facility] [address] [id number] [address] [place] [address], [place] [address] Mar, 2013 [facility] [address] [id number] [address] [place] [address], [place] [address] Mar, 2013 [facility] [address] [id number] [address] [place] [address], [place] [address] Mar, [facility] [address] [id number] [address] [place] [address], [place] [address] Mar, 2013 [facility] [address] [id number] [address] [place] [address], [place] [address] Feb, [facility] [address] [id number] [facility] [place] [address] Feb, [facility] [address] [id number] [facility] [place] [address] Feb, [facility] [address] [id number] [facility] [place] [address] Feb, [facility] [address] [id number] [facility] [place] [address] Feb, [facility] [address] [id number] [facility] [place] [address] Feb, [facility] [address] [id number] [address] [place] [address], [place] [address] Feb, [facility] [address] [id number] [address] [place] [address], [place] [address] Feb, [facility] [address] [id number] [address] [place] [address], [place] [address] Feb, [facility] [address] [id number] [address] [place] [address], [place] [address] Feb, [facility] [address] [id number] [address] [place] [address], [place] [address] Feb, [facility] [address] [id number] [address] [place] [address], [place] [address] Feb, [facility] [address] [id number] [address] [place] [address], [place] [address] Feb, [facility] [address] [id number] [address] [place] [address], [place] [address] Feb, [facility] [address] [id number] [address] [place] [address], [place] [address] January, [facility] [address] [id number] [address] [place] [address], [place] [address] January, [facility] [address] [id number] [address] [place] [address], [place] [address] January, [facility] [address] [id number] [address] [place] [address], [place] [address] January, [facility] [address] [id number] [address] [place] [address], [place] [address] January, [facility] [address] [id number] [address] [place] [address], [place] [address] January, [facility] [address] [id number] [address] [place] [address], [place] [address] January, [facility] [address] [id number] [address] [place] [address], [place] [address] January, [facility] [address] [id number] [address] [place] [address], [place] [address] January, [facility] [address] [id number] [address] [place] [address], [place] [address] January, [facility] [address] [id number] [address] [place] [address], [place] [address] January, [facility] [address] [id number] [address] [place] [address], [place] [address] January, [facility] [address] [id number] [address] [place] [address], [place] [address] January, [facility] [address] [id number] [address] [place] [address], [place] [address] January, [facility] [address] [id number] [address] [place] [address], [place] [address] Dec, [facility] [address] [id number] [address] [place] [address], [place] [address] Dec, [facility] [address] [id number] [address] [place] [address], [place] [address] Dec, [facility] [address] [id number] [address] [place] [address], [place] [address] Dec, [facility] [address] [id number] [facility] [place] [address] Dec, [facility] [address] [id number] [facility] [place] [address] Dec, [facility] [address] [id number] [facility] [place] [address] Dec, [facility] [address] [id number] [address] [place] [address], [place] [address] Dec, [facility] [address] [id number] [address] [place] [address], [place] [address] Dec, [facility] [address] [id number] [address] [place] [address], [place] [address] Dec, [facility] [address] [id number] [address] [place] [address], [place] [address] Nov, [facility] [address] [id number] [address] [place] [address], [place] [address] Nov, [facility] [address] [id number] [address] [place] [address], [place] [address] Nov, [facility] [address] [id number] [address] [place] [address], [place] [address] Nov, [facility] [address] [id number] [address] [place] [address], [place] [address] Nov, [facility] [address] [id number] [address] [place] [address], [place] [address] Nov, [facility] [address] [id number] [address] [place] [address], [place] [address] Nov, [facility] [address] [id number] [address] [place] [address], [place] [address] Nov, [facility] [address] [id number] [address] [place] [address], [place] [address] Nov, [facility] [address] [id number] [address] [place] [address], [place] [address] Nov, [facility] [address] [id number] [address] [place] [address], [place] [address] Oct, [facility] [address] [id number] [address] [place] [address], [place] [address] Oct, [facility] [address] [id number] [address] [place] [address], [place] [address] Oct, [facility] [address] [id number] [address] [place] [address], [place] [address] Oct, [facility] [address] [id number] [address] [place] [address], [place] [address] Oct, [facility] [address] [id number] [address] [place] [address], [place] [address] Oct, [facility] [address] [id number] [address] [place] [address], [place] [address] Oct, [facility] [address] [id number] [address] [place] [address], [place] [address] Oct, [facility] [address] [id number] [address] [place] [address], [place] [address] Oct, [facility] [address] [id number] [address] [place] [address], [place] [address] Oct, [facility] [address] [id number] [address] [place] [address], [place] [address] Oct, [facility] [address] [id number] [address] [place] [address], [place] [address] Oct, [facility] [address] [id number] [address] [place] [address], [place] [address] Oct, [facility] [address] [id number] [address] [place] [address], [place] [address] Oct, [facility] [address] [id number] [address] [place] [address], [place] [address] Sep, [facility] [address] [id number] [address] [place] [address], [place] [address] 20 Sep, 2013 [facility] [address] [id number] [address] [place] [address], [place] [address] 15 Sep, 2013 [facility] [address] [id number] [address] [place] [address], [place] [address] 15 Sep, 2013 [facility] [address] [id number] [address] [place] [address], [place] [address] 14 Sep, 2013 [facility] [address] [id number] [address] [place] [address], [place] [address] 14 Sep, 2013 [facility] [address] [id number] [address] [place] [address], [place] [address] Sep, [facility] [address] [id number] [address] [place] [address], [place] [address] 14 Sep, 2013 [facility] [address] [id number] [address] [place] [address], [place] [address] 08 Sep, 2013 [facility] [address] [id number] [address] [place] [address], [place] [address] 08 Sep, 2013 [facility] [address] [id number] [address] [place] [address], [place] [address] Aug, [facility] [address] [id number] [address] [place] [address], [place] [address] Aug, [facility] [address] [id number] [address] [place] [address], [place] [address] Jul, [facility] [address] [id number] [address] [place] [address], [place] [address] Jul, [facility] [address] [id number] [address] [place] [address], [place] [address] 13 Jul, 2013 [facility] [address] [id number] [address] [place] [address], [place] [address] 13 Jul, 2013 [facility] [address] [id number] [address] [place] [address] [address] Jul, [facility] [address] [id number] [address] [place] [address], [place] [address] Jul, [facility] [address] [id number] [address] [place] [address], [place] [address] Jul, [facility] [address] [id number] [address] [place] [address], [place] [address] Jul, [facility] [address] [id number] [address] [place] [address], [place] [address] Jul, [facility] [address] [id number] [address] [place] [address], [place] [address] Jul, [facility] [address] [id number] [address] [place] [address], [place] [address] Jul, [facility] [address] [id number] [address] [place] [address], [place] [address] Jul, [facility] [address] [id number] [address] [place] [address], [place] [address] Jul, [facility] [address] [id number] [address] [place] [address], [place] [address] Jul, [facility] [address] [id number] [address] [place] [address] Jul, [facility] [address] [id number] [address] [place] [address] Jul, [facility] [address] [id number] [address] [place] [address] Jul, [facility] [address] [id number] [address] [place] [address], [place] [address] Jul, [facility] [address] [id number] [address] [place] [address] Jul, [facility] [address] [id number] [address] [place] [address], [place] [address] Jun, [facility] [address] [id number] [address] [place] [address], [place] [address] 16 Jun, 2012 [facility] [address] [id number] [address] [place] [address], [place] [address] 16 Jun, 2012 [facility] [address] [id number] [address] [place] [address], [place] [address] 16 Jun, 2012 [facility] [address] [id number] [address] [place] [address], [place] [address] 16 Jun, 2012 [facility] [address] [id number] [address] [place] [address], [place] [address] 16 Jun, 2012 [facility] [address] [id number] [address] [place] [address], [place] [address] 10 Jun, 2012 [facility] [address] [id number] [address] [place] [address], [place] [address] 10 Jun, 2012 [facility] [address] [id number] [address] [place] [address], [place] [address] 09 Jun, 2012 [facility] [address] [id number] [address] [place] [address], [place] [address] 09 Jun, 2012 [facility] [address] [id number] [address] [place] [address], [place] [address] Jun, 2012 [facility] [address] [id number] [address] [place] [address], [place] [address] 26 Sep, 2012 [facility] [address] [id number] [address] [place] [address], [place] [address] 25 Sep, 2012 [facility] [address] [id number] [address] [place] [address], [place] [address] 19 Sep, 2012 [facility] [address] [id number] [address] [place] [address], [place] [address] 17 Sep, 2012 [facility] [address] [id number] [address] [place] [address], [place] [address] 11 Sep, 2012 [facility] [address] [id number] [address] [place] [address] May, [facility] [address] [id number] [address] [place] [address], [place] [address] May, [facility] [address] [id number] [address] [place] [address], [place] [address] May, [facility] [address] [id number] [address] [place] [address], [place] [address] Apr, [facility] [address] [id number] [address] [place] [address], [place] [address] Apr, [facility] [address] [id number] [address] [place] [address], [place] [address] Apr, [facility] [address] [id number] [address] [place] [address], [place] [address] Apr, [facility] [address] [id number] [address] [place] [address], [place] [address] Apr, [facility] [address] [id number] [address] [place] [address], [place] [address] Mar, [facility] [address] [id number] [address] [place] [address], [place] [address] Mar, [facility] [address] [id number] [address] [place] [address], [place] [address] Mar, [facility] [address] [id number] [address] [place] [address], [place] [address] Mar, [facility] [address] [id number] [address] [place] [address], [place] [address] Mar, [facility] [address] [id number] [address] [place] [address], [place] [address] Mar, [facility] [address] [id number] [address] [place] [address], [place] [address] Mar, [facility] [address] [id number] [address] [place] [address], [place] [address] Mar, [facility] [address] [id number] [address] [place] [address], [place] [address] Feb, [facility] [address] [id number] [address] [place] [address], [place] [address] Feb, [facility] [address] [id number] [address] [place] [address], [place] [address] January, [facility] [address] [id number] [address] [place] [address], [place] [address] January, [facility] [address] [id number] [address] [place] [address], [place] [address] Dec, [facility] [address] [id number] [address] [place] [address], [place] [address] Dec, [facility] [address] [id number] [address] [place] [address], [place] [address] Nov, [facility] [address] [id number] [address] [place] [address], [place] [address] Nov, [facility] [address] [id number] [address] [place] [address], [place] [address] Nov, [facility] [address] [id number] [address] [place] [address], [place] [address] Nov, [facility] [address] [id number] [address] [place] [address], [place] [address] Oct, [facility] [address] [id number] [address] [place] [address], [place] [address] Oct, [facility] [address] [id number] [address] [place] [address], [place] [address] Oct, [facility] [address] [id number] [address] [place] [address], [place] [address] Oct, [facility] [address] [id number] [address] [place] [address], [place] [address] 16 Oct, 2012 [facility] [address] [id number] [address] [place] [address], [place] [address] 14 Oct, 2012 [facility] [address] [id number] [address] [place] [address], [place] [address] 08 Oct, 2012 [facility] [address] [id number] [address] [place] [address], [place] [address] 07 Oct, 2012 [facility] [address] [id number] [address] [place] [address], [place] [address] Oct, [facility] [address] [id number] [address] [place] [address], [place] [address] Sep, [facility] [address] [id number] [address] [place] [address], [place] [address] Sep, [facility] [address] [id number] [address] [place] [address], [place] [address] Sep, [facility] [address] [id number] [address] [place] [address], [place] [address] Sep, [facility] [address] [id number] [address] [place] [address], [place] [address] Sep, [facility] [address] [id number] [address] [place] [address], [place] [address] Sep, [facility] [address] [id number] [address] [place] [address], [place] [address] Sep, [facility] [address] [id number] [address] [place] [address], [place] [address] Sep, [facility] [address] [id number] [address] [place] [address], [place] [address] Aug, [facility] [address] [id number] [address] [place] [address], [place] [address] Aug, [facility] [address] [id number] [address] [place] [address], [place] [address] Aug, [facility] [address] [id number] [address] [place] [address], [place] [address] Aug, [facility] [address] [id number] [address] [place] [address], [place] [address] Aug, [facility] [address] [id number] [address] [place] [address], [place] [address] Aug, [facility] [address] [id number] [address] [place] [address], [place] [address] Aug, [facility] [address] [id number] [address] [place] [address], [place] [address] Aug, [facility] [address] [id number] [address] [place] [address], [place] [address] Jul, [facility] [address] [id number] [address] [place] [address], [place] [address] Jul, [facility] [address] [id number] [address] [place] [address], [place] [address] Jul, [facility] [address] [id number] [address] [place] [address], [place] [address] Jul, [facility] [address] [id number] [address] [place] [address], [place] [address] Jul, [facility] [address] [id number] [address] [place] [address], [place] [address] Jul, [facility] [address] [id number] [address] [place] [address], [place] [address] Jun, [facility] [address] [id number] [address] [place] [id number] Jun, [facility] [address] [id number] [address] [place] [address] Jun, [facility] [address] [id number] [address] [place] [address], [place] [address] Jun, [facility] [address] [id number] [address] [place] [address], [place] [address] Jun, [facility] [address] [id number] [address] [place] [address], [place] [address] Jun, [facility] [address] [id number] [address] [place] [address], [place] [address] 19 Jun, 2012 [facility] [address] [id number] [address] [place] [address], [place] [address] Jun, [facility] [address] [id number] [address] [place] [address], [place] [address] 10 Jun, 2012 [facility] [address] [id number] [address] [place] [address], [place] [address] 26 May, 2012 [facility] [address] [id number] [address] [place] [address], [place] [address] 24 May, 2012 [facility] [address] [id number] [address] [place] [address], [place] [address] May, [facility] [address] [id number] [address] [place] [address], [place] [address] 30 Apr, 2012 [facility] [address] [id number] [address] [place] [address], [place] [address] Apr, [facility] [address] [id number] [address] [place] [address], [place] [address] Apr, [facility] [address] [id number] [address] [place] [address], [place] [address] Apr, [facility] [address] [id number] [address] [place] [address], [place] [address] Apr, [facility] [address] [id number] [address] [place] [address], [place] [address] Apr, [facility] [address] [id number] [address] [place] [address], [place] [address] Mar, [facility] [address] [id number] [address] [place] [address], [place] [address] Mar, [facility] [address] [id number] [address] [place] [address], [place] [address] Mar, [facility] [address] [id number] [address] [place] [address], [place] [address] Mar, [facility] [address] [id number] [address] [place] [address], [place] [address] Feb, [facility] [address] [id number] [address] [place] [address], [place] [address] Feb, [facility] [address] [id number] [address] [place] [address], [place] [address] Feb, [facility] [address] [id number] [address] [place] [address], [place] [address] Feb, [facility] [address] [id number] [address] [place] [address], [place] [address] Feb, [facility] [address] [id number] [address] [place] [address], [place] [address] January, [facility] [address] [id number] [address] [place] [address], [place] [address] January, [facility] [address] [id number] [address] [place] [address], [place] [address] January, [facility] [address] [id number] [address] [place] [address], [place] [address] January, [facility] [address] [id number] [address] [place] [address], [place] [address] January, [facility] [address] [id number] [address] [place] [address], [place] [address] January, [facility] [address] [id number] [address] [place] [address], [place] [address] Dec, [facility] [address] [id number] [address] [place] [address], [place] [address] Dec, [facility] [address] [id number] [address] [place] [address], [place] [address] Dec, [facility] [address] [id number] [address] [place] [address], [place] [address] Dec, [facility] [address] [id number] [address] [place] [address], [place] [address] 06 Dec, 2011 [facility] [address] [id number] [address] [place] [address], [place] [address] 27 Nov, 2011 [facility] [address] [id number] [address] [place] [address], [place] [address] 14 Nov, 2011 [facility] [address] [id number] [address] [place] [address], [place] [address] 12 Nov, 2011 [facility] [address] [id number] [address] [place] [address], [place] [address] 07 Nov, 2011 [facility] [address] [id number] [address] [place] [address], [place] [address] 29 Oct, 2011 [facility] [address] [id number] [address] [place] [address], [place] [address] 28 Oct, 2011 [facility] [address] [id number] [address] [place] [address], [place] [address] 24 Oct, 2011 [facility] [address] [id number] [address] [place] [address], [place] [address] 13 Oct, 2011 [facility] [address] [id number] [address] [place] [address], [place] [address] 08 Oct, 2011 [facility] [address] [id number] [address] [place] [address], [place] [address] 31 Sep, 2011 [facility] [address] [id number] [address] [place] [address], [place] [address] 30 Sep, 2011 [facility] [address] [id number] [address] [place] [address], [place] [address] Sep, [facility] [address] [id number] [address] [place] [address], [place] [address] Sep, [facility] [address] [id number] [address] [place] [address], [place] [address] Sep, [facility] [address] [id number] [address] [place] [address], [place] [address] Sep, [facility] [address] [id number] [address] [place] [address], [place] [address] Aug, [facility] [address] [id number] [address] [place] [address], [place] [address] Aug, [facility] [address] [id number] [address] [place] [address], [place] [address] Aug, [facility] [address] [id number] [address] [place] [address], [place] [address] Jul, [facility] [address] [id number] [address] [place] [address], [place] [address] Jul, [facility] [address] [id number] [address] [place] [address], [place] [address] Jul, [facility] [address] [id number] [address] [place] [address], [place] [address] Jul, [facility] [address] [id number] [address] [place] [address], [place] [address] Jun, [facility] [address] [id number] [address] [place] [address], [place] [address] Jun, [facility] [address] [id number] [address] [place] [address] Jun, [facility] [address] [id number] [address] [place] [address] Jun, [facility] [address] [id number] [address] [place] [id number] Jun, [facility] [address] [id number] [address] [place] [address], [place] [address] Jun, [facility] [address] [id number] [address] [place] [address], [place] [address] Mar, [facility] [address] [id number] [address] [place] [address] Dec, [facility] [address] [id number] [address] [place] [address] 11 Dec, 2010 [facility] [address] [id number] [address] [place] [address], [place] [address] 18 Nov, 2010 [facility] [address] [id number] [address] [place] [address], [place] [address] 16 Nov, 2010 [facility] [address] [id number] [address] [place] [address], [place] [address] 10 Sep, 2010 [facility] [address] [id number] [address] [place] [address], [place] [address] 31 Aug, 2010 [facility] [address] [id number] [address] [place] [address], [place] [address] 29 Aug, 2010 [facility] [address] [id number] [address] [place] [address], [place] [address] 29 Aug, 2010 [facility] [address] [id number] [address] [place] [address], [place] [address] 29 Aug, 2010 [facility] [address] [id number] [address] [place] [address], [place] [address] 27 Aug, 2010 [facility] [address] [id number] [address] [place] [address], [place] [address] 14 Aug, 2010 [facility] [address] [id number] [address] [place] [address], [place] [address] 08 Aug, 2010 [facility] [address] [id number] [address] [place] [address], [place] [address] 08 Aug, 2010 [facility] [address] [id number] [address] [place] [address], [place] [address] 07 Aug, 2010 [facility] [address] [id number] [address] [place] [address], [place] [address] 06 Aug, 2010 [facility] [address] [id number] [address] [place] [address], [place] [address] 06 Aug, 2010 [facility] [address] [id number] [address] [place] [address], [place] [address] Aug, [facility] [address] [id number] [address] [place] [address], [place] [address] 30 Jul, 2010 [facility] [address] [id number] [address] [place] [address], [place] [address] 30 Jul, 2010 [facility] [address] [id number] [address] [place] [address], [place] [address] Jul, [facility] [address] [id number] [address] [place] [address], [place] [address] Jul, [facility] [address] [id number] [address] [place] [address], [place] [address] Jul, [facility] [address] [id number] [address] [place] [address], [place] [address] Jul, [facility] [address] [id number] [address] [place] [address], [place] [address] 24 Jun, 2010 [facility] [address] [id number] [address] [place] [address], [place] [address] Jun, [facility] [address] [id number] [address] [place] [address], [place] [address] Jun, [facility] [address] [id number] [address] [place] [address], [place] [address] Jun, [facility] [address] [id number] [address] [place] [address], [place] [address] 16 Apr, 2010 [facility] [address] [id number] [address] [place] [address], [place] [address] Mar, [facility] [address] [id number] [address] [place] [address], [place] [address] Feb, [facility] [address] [id number] [address] [place] [address], [place] [address] January, [facility] [address] [id number] [address] [place] [address], [place] [address] 15 Dec, 2009 [facility] [address] [id number] [address] [place] [address], [place] [address] Nov, [facility] [address] [id number] [address] [place] [address] 31 Aug, 2009 [facility] [address] [id number] [address] [place] [address], [place] [address] Aug, [facility] [address] [id number] [address] [place] [address], [place] [address] Aug, [facility] [address] [id number] [address] [place] [address] Jul, [facility] [address] [id number] [address] [place] [address], [place] [address] Jul, [facility] [address] [id number] [address] [place] [address] Jul, [facility] [address] [id number] [address] [place] [address], [place] [address] 30 Jun, 2009 [facility] [address] [id number] [address] [place] [address] Jun, [facility] [address] [id number] [address] [place] [address] Jun, [facility] [address] [id number] [address] [place] [address] Jun, [facility] [address] [id number] [address] [place] [address] Jun, [facility] [address] [id number] [address] [place] [address] Jun, [facility] [address] [id number] [address] [place] [address] Apr, [facility] [address] [id number] [address] [place] [address] Apr, [facility] [address] [id number] [address] [place] [id number] Feb, [facility] [address] [id number] [address] [place] [address] January, [facility] [address] [facility] [id number] [address] [place] [address] Dec, IMMUNIZATIONS No Known Immunizations SOCIAL HISTORY Never Assessed REASON FOR [place]IT [place] [place] VITAL SIGNS MEDICATIONS Unknown [...] Medical History skin cancer-basal cell R restorationism (removed ) Medical History Arthritis Medical History [...] 2009 Surgical History colonoscopy 2009 ([facility]), 2013 ([facility] ) Surgical History heart cath: CAD w/ [...] inability to urinate 09/16/15 Hospitalization History [facility] health ea rly 1999' Hospitalization History hyperkalemia 10/2017 Hospitalization History fluid in lung
--- OUTSIDE RECORDS SUMMARY | 2020-03-01 17:45 | XMS REPORT ---
Author Michele Fuentes Organization [facility] Address [address] [place] [address] Care Team Providers Care Private Inquiry Agent Name Role Phone ROSELINE LUIS Unavailable PROBLEMS Type Condition ICD9-CM Code OXS48-UM Code Onset Dates Condition S tatus SNOMED Code Problem Leukocytosis D72.829 Active 1387638 06 Problem Bipolar I disorder, most recent episode (or curr ent) mixed, moderate F31.62 Active 62020492 Problem Reactive airway disease J45.909 Active 200079196451 Problem Anxiety F41.9 Active 31371032 Problem Insomnia, unspecified type G47.00 Act sharon 729872581 Problem Essential hypertension I10 Active 44977779 Problem Morbid obesity E66.01 Active 85839 6002 Problem Skin cancer C44.90 Active 76107719 7 Problem DM neuro manif type II E11.49 Active 49973370 Problem Mild cognitive impairment G31.84 Acti ve 522997604 Problem Benign prostatic hyperplasia with lower urinary tract symptoms, unspecified morphology N40.1 Active 88147 6007 Problem Chronic pain G89.29 Active 7950113 1 Problem Diabetes E11.9 Active 94633492 Problem Retinal edema H35.81 Active 490322 6 Problem Anemia of chronic illness D63.8 Acti ve 443703895 Problem Falling R29.6 Active 097095260 Problem Pressure ulcer of other site, stage 3 L89.893 Active 069333066 Problem 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 Active 653016053 Problem Eye exam abnormal R93.8 Active 16 4052245 Problem Pure hypercholesterolemia E78.00 Acti ve 122748306 Problem Dysuria R30.0 Active 05539069 Problem Bipolar disorder, in partial remission, most rec ent episode depressed F31.75 Active 83043004 Problem Hypokalemia E87.6 Active 80676298 Problem Other iron deficiency anemia D50.8 A ctive 56759872 Problem Eustachian tube dysfunction, unspecified laterality H69.80 Active 02687352 Problem Primary osteoarthritis of right knee M17.11 Active [id number] Problem Cough R05 Active 56735985 Problem Bipolar disorder F31.9 Active 137 20039 Problem Chronic diastolic (congestive) heart failure I50.3 2 Active 283444101 Problem Psychophysiological insomnia F51.04 A ctive 952851687 Problem Gastroesophageal reflux disease without esophagitis K21.9 Active 173738601 Problem Polyneuropathy associated with underlying disease G63 Active 361207017 Problem Other secondary acute gout, 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 0 Active 265962323 Problem Diabetic polyneuropathy associated with type 2 d iabetes mellitus E11.42 Active 80487615 Problem Chronic lymphocytic leukemia C91.10 A ctive 47563270 Problem Bilateral primary osteoarthritis of knee M17.0 Active 873401427 Problem Type 2 diabetes mellitus with diabetic neuropathy, uns pecified E11.40 Active 66202890 Problem penitentiary (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 Z79.4 Active 616578947 Problem Lymphocytosis D72.820 Active 718174 09 Problem Mood disorder F39 Active 891819 05 Problem Bipolar I disorder, most recent episode depressed, moderat e F31.32 Active 052731908 ALLERGIES No Information ENCOUNTERS Encounter Location Date Diagnosis [id number] [id number] [place] [phone] January, [facility] [id number] [place] [phone] January, Chronic pain G89.29 [facility] [id number] [place] [phone] Dec, [facility] [address] [id number] [address] [place] [phone] Dec, Chronic pain G89.29 [facility] [facility] [id number] [place] [phone] Dec, [facility] [address] [id number] [address] [place] [phone] Dec, [facility] [facility] [id number] [place] [phone] Dec, Gastroesophageal reflux dise ase without esophagitis K21.9 and Pure hypercholesterolemia E78.00 [facility] [address] [id number] [address] [place] [phone] Dec, Mood disorder F39 [facility] [id number] [place] [id number] 31 Nov, 2019 Other secondary acute gout, 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 [facility] [id number] [place] [phone] Nov, Gastroesophageal reflux dise ase without esophagitis K21.9 [facility] [facility] [id number] [place] [phone] Nov, Chronic pain G89.29 [facility] [facility] [id number] [place] [phone] Nov, Bipolar I disorder, most rec ent episode depressed, moderate F31.32 ; Anxiety F41.9 and Mild cognitive impairment G31.84 [facility] [id number] [place] [phone] Nov, [facility] [id number] [place] [phone] Nov, Syncope, unspecified syncope type R55 [facility] [facility] [facility] [id number] [place] [phone] Nov, Mood disorder F39 [facility] [facility] [id number] [place] [phone] Oct, Chronic pain G89.29 [facility] [address] [id number] [address] [place] [phone] Oct, [facility] [facility] [id number] [place] [phone] Oct, Mood disorder F39 [facility] [facility] [id number] [place] [phone] Oct, [place] [address] [id number] [address] [place] [id number] 10 Oct, 2019 Bipolar disorder, in partial remission, most recent episode depressed F31.75 and Mild cognitive impairment G31.84 [facility] [address] [id number] [address] [place] [phone] 04 Oct, 2019 Mood disorder F39 [facility] [address] [id number] [address] [place] [phone] 28 Sep, 2019 [facility] [address] [id number] [address] [place] [phone] Sep, Mood disorder F39 [facility] [address] [id number] [address] [place] [id number] 13 Sep, 2019 Bipolar disorder, in partial remission, most recent episode depressed F31.75 and Mild cognitive impairment G31.84 [facility] [address] [id number] [address] [place] [phone] 06 Sep, 2019 Mood disorder F39 [facility] [address] [id number] [address] [place] [phone] Sep, [facility] [address] [id number] [address] [place] [id number] Sep, Mood disorder F39 [facility] [address] [id number] [address] [place] [phone] Sep, [facility] [address] [id number] [address] [place] [phone] Aug, Mood disorder F39 [facility] [address] [id number] [address] [place] [phone] Aug, [facility] [address] [id number] [address] [place] [phone] Aug, [facility] [address] [id number] [address] [place] [phone] Aug, [facility] [address] [id number] [address] [place] [phone] Aug, [facility] [address] [id number] [address] [place] [phone] Aug, [facility] [address] [id number] [address] [place] [phone] Aug, [facility] [address] [id number] [address] [place] [phone] Aug, [facility] [address] [id number] [address] [place] [phone] Aug, Essential hypertension I10 [facility] [address] [id number] [address] [place] [phone] Aug, Bipolar disorder, in partial remission, most recent episode depressed F31.75 and Mild cognitive impairment G31.84 [facility] [address] [id number] [address] [place] [phone] Aug, Mood disorder F39 [facility] [address] [id number] [address] [place] [phone] Aug, [facility] [address] [id number] [address] [place] [phone] Aug, Bipolar disorder, in partial remission, most recent episode depressed F31.75 and Mild cognitive impairment G31.84 [facility] [address] [id number] [address] [place] [id number] Jul, Bipolar disorder, in partial remission, most recent episode depressed F31.75 and Mild cognitive impairment G31.84 [facility] [address] [id number] [address] [place] [id number] Jul, Psychophysiological insomnia F51.04 [facility] [address] [id number] [address] [place] [phone] Jul, [facility] [address] [id number] [address] [place] [id number] Jul, [facility] [address] [id number] [address] [place] [id number] Jul, [facility] [address] [facility] [id number] [place] [phone] Jul, [facility] [address] [facility] [id number] [place] [phone] Jul, [facility] [address] [facility] [id number] [place] [phone] Jul, [facility] [address] [facility] [id number] [place] [phone] Jul, Bipolar disorder, in partial remission, most recent episode depressed F31.75 and Mild cognitive impairment G31.84 [place] [facility] [id number] [place] [id number] Jul, Chronic pain G89.29 ; Diabet es E11.9 ; Essential hypertension I10 ; Ill feeling R68.89 ; Local infection of the skin and subcutaneous tissue, unspecified L08.9 and Other injury of unspecified body region, initial encounter T14.8XXA [facility] [facility] [id number] [place] [phone] Jun, Bipolar disorder, in partial remission, most recent episode depressed F31.75 and Mild cognitive impairment G31.84 [facility] [address] [facility] [id number] [place] [id number] Jun, [facility] [address] [facility] [id number] [place] [phone] Jun, Bipolar disorder, in partial remission, most recent episode depressed F31.75 and Mild cognitive impairment G31.84 [facility] [address] [facility] [id number] [place] [phone] Jun, Psychophysiological insomnia F51.04 [facility] [address] [facility] [id number] [place] [phone] Jun, Psychophysiological insomnia F51.04 ; Chronic pain G89.29 ; Bipolar I disorder, most recent episode (or current) mixed, moderate F31.62 ; 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 ; Polyneuropathy associated with underlying disease G63 ; Type 2 diabetes mellitus with diabetic neuropathy, unspecified E11.40 ; long term care phlebotomist (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 Z79.4 and Hyperglycemia R73.9 [facility] [address] [facility] [id number] [place] [phone] Jun, Bipolar disorder, in partial remission, most recent episode depressed F31.75 and Mild cognitive impairment G31.84 [facility] [id number] [place] [phone] Jun, [facility] [id number] [place] [id number] Jun, Bipolar disorder F31.9 [facility] [place] [id number] [place] [phone] May, Bipolar disorder, in partial remission, most recent episode depressed F31.75 and Mild cognitive impairment G31.84 [facility] [id number] [place] [phone] May, [facility] [facility] [id number] [place] [id number] Apr, Chronic pain G89.29 and Bipo lar disorder F31.9 [facility] [address] [facility] [id number] [place] [id number] Mar, Bipolar disorder F31.9 and C hronic pain G89.29 [facility] [address] [facility] [id number] [place] [phone] Feb, Bipolar disorder F31.9 [facility] [address] [facility] [id number] [place] [phone] Feb, Cellulitis of right upper ex tremity L03.113 and Skin abrasion T14.8XXA [facility] [address] [facility] [id number] [place] [phone] Feb, Bipolar disorder, in partial remission, most recent episode depressed F31.75 and Mild cognitive impairment G31.84 [facility] [address] [id number] [address] [place] [phone] Feb, Chronic pain G89.29 [facility] [address] [id number] [address] [place] [phone] Feb, Bipolar disorder, in partial remission, most recent episode depressed F31.75 and Mild cognitive impairment G31.84 [facility] [address] [id number] [address] [place] [phone] January, Bipolar disorder, in partial remission, most recent episode depressed F31.75 and Mild cognitive impairment G31.84 [facility] [address] [id number] [address] [place] [id number] January, Chronic pain G89.29 and Bipo lar disorder F31.9 [facility] [address] [id number] [address] [place] [phone] January, Bipolar disorder, in partial remission, most recent episode depressed F31.75 and Mild cognitive impairment G31.84 [facility] [address] [id number] [address] [place] [phone] Dec, [facility] [address] [id number] [address] [place] [phone] Dec, Chronic pain G89.29 and Bipo lar disorder F31.9 [facility] [address] [id number] [address] [place] [phone] Dec, Edema of both lower extremit ies R60.0 [facility] [address] [id number] [address] [place] [id number] Dec, Bipolar disorder F31.9 [facility] [address] [id number] [address] [place] [phone] Dec, Bipolar disorder, in partial remission, most recent episode depressed F31.75 and Mild cognitive impairment G31.84 [facility] [address] [id number] [address] [place] [phone] Nov, [place] [address] [place] [id number] [address] [place] [phone] Nov, Chronic pain G89.29 [place] [address] [place] [id number] [address] [place] [address] Nov, Bipolar disorder, in partial remission, most recent episode depressed F31.75 and Mild cognitive impairment G31.84 [place] [id number] [place] [phone] Nov, Bipolar disorder F31.9 [place] [address] [place] [id number] [address] [place] [phone] 04 Nov, 2018 [facility] ; [...] unspecified morphology N40.1 and Essential hypertension I10 [place] [id number] [place] [phone] Oct, Chronic pain G89.29 [place] [address] [place] [id number] [address] [place] [phone] Oct, Diabetes E11.9 [place] [address] [place] [id number] [address] [place] [id number] Oct, Bipolar I disorder, most rec ent episode (or current) mixed, moderate F31.62 and Mild cognitive impairment G31.84 [place] [address] [place] [id number] [address] [place] [phone] Oct, Bipolar I disorder, most rec ent episode (or current) mixed, moderate F31.62 and Mild cognitive impairment G31.84 [place] [id number] [address] [place] [phone] Sep, Bipolar I disorder, most rec ent episode (or current) mixed, moderate F31.62 and Mild cognitive impairment G31.84 [facility] [address] [facility] [id number] [place] [address] Sep, [place] [address] [place] [id number] [address] [place] [address] Sep, Diabetes E11.9 ; Hypoxia R09 .02 ; Hyperglycemia R73.9 ; Therapeutic drug monitoring Z51.81 ; BMI 50.0-59.9, adult Z68.43 and Skin cancer C44.90 [place] [address] [place] [id number] [address] [place] [address] Sep, Chronic pain G89.29 [place] [address] [place] [id number] [address] [place] [address] Sep, Bipolar I disorder, most rec ent episode (or current) mixed, moderate F31.62 [place] [address] [place] [id number] [address] [place] [id number] Sep, [place] [address] [place] [id number] [address] [place] [address] Sep, [place] [address] [place] [id number] [address] [place] [address] Aug, Chronic pain G89.29 [place] [address] [place] [id number] [address] [place] [address] Aug, Bipolar I disorder, most rec ent episode (or current) mixed, moderate F31.62 [place] [address] [place] [id number] [address] [place] [phone] Aug, Bipolar I disorder, most rec ent episode (or current) mixed, moderate F31.62 and Mild cognitive impairment G31.84 [facility] [address] [place] [id number] [address] [place] [id number] Jul, [facility] [address] [place] [id number] [address] [place] [phone] Jul, Chronic pain G89.29 [facility] [address] [id number] [address] [place] [id number] Jul, Bipolar I disorder, most rec ent episode (or current) mixed, moderate F31.62 and Mild cognitive impairment G31.84 [facility] [address] [id number] [address] [place] [id number] Jul, Bipolar I disorder, most rec ent episode (or current) mixed, moderate F31.62 and MCI (mild cognitive impairment) G31.84 [facility] [address] [id number] [address] [place] [id number] Jul, [facility] [address] [id number] [address] [place] [phone] Jul, [facility] [address] [id number] [address] [place] [id number] Jul, Bipolar I disorder, most rec ent episode (or current) mixed, moderate F31.62 [facility] [address] [id number] [address] [place] [phone] Jul, Chronic pain G89.29 [facility] [address] [id number] [address] [place] [phone] Jun, Bipolar I disorder, most rec ent episode (or current) mixed, moderate F31.62 [facility] [address] [id number] [address] [place] [phone] Jun, Pre-procedure lab exam Z01.8 12 [facility] [address] [id number] [address] [place] [id number] Jun, [facility] [address] [id number] [place] [address] [id number] Jun, [facility] [address] [id number] [address] [place] [address] Jun, [facility] [address] [place] [id number] [address] [place] [phone] Jun, Forgetfulness R68.89 ; Pre-s yncope R55 ; Localized edema R60.0 ; Other iron deficiency anemia D50.8 and BMI 50.0-59.9, adult Z68.43 [place] [address] [place] [id number] [address] [place] [address] Jun, Chronic pain G89.29 [place] [address] [place] [id number] [place] [address] Jun, Chronic pain G89.29 [place] [address] [address] Jun, Bipolar I disorder, most rec ent episode (or current) mixed, moderate F31.62 [place] [address] [place] [id number] [place] [phone] May, Chronic pain G89.29 [place] [address] [address] Apr, [place] [address] [address] Apr, Chronic pain G89.29 [place] [address] [place] [id number] [address] [place] [id number] Apr, Primary osteoarthritis of ri ght knee M17.11 [place] [address] [place] [id number] [address] [place] [id number] Mar, [place] [address] [place] [id number] [place] [address] Mar, BMI 50.0-59.9, adult Z68.43 and Bipolar disorder, in partial remission, most recent episode depressed F31.75 [place] [address] [place] [id number] [address] [place] [phone] Mar, Diabetes E11.9 ; Pure hyperc holesterolemia E78.00 ; Essential hypertension I10 ; Nausea with vomiting, unspecified R11.2 and Headache, unspecified headache type R51 [facility] [address] [facility] [id number] [place] [phone] Mar, Bipolar I disorder, most rec ent episode (or current) mixed, moderate F31.62 [facility] [address] [facility] [id number] [place] [id number] Mar, Bipolar I disorder, most rec ent episode (or current) mixed, moderate F31.62 [facility] [address] [facility] [id number] [place] [id number] Mar, Chronic pain G89.29 [facility] [address] [facility] [id number] [place] [id number] Mar, Bipolar I disorder, most rec ent episode (or current) mixed, moderate F31.62 [place] [address] [place] [id number] [address] [place] [phone] Feb, Bipolar I disorder, most rec ent episode (or current) mixed, moderate F31.62 [facility] [address] [place] [id number] [address] [place] [id number] Feb, Chronic pain G89.29 [facility] [address] [facility] [id number] [place] [id number] 06 Feb, 2018 Decubitus ulcer of right josselin t, stage 3 L89.893 and BMI 50.0-59.9, adult Z68.43 [facility] [id number] [place] [id number] Feb, Bipolar I disorder, most rec ent episode (or current) mixed, moderate F31.62 [facility] [address] [place] [id number] [address] [place] [id number] Feb, [facility] [id number] [place] [id number] January, [facility] [address] [place] [id number] [address] [place] [id number] January, Chronic pain G89.29 [place] [address] [place] [id number] [address] [place] [id number] January, Bipolar I disorder, most rec ent episode (or current) mixed, moderate F31.62 [place] [address] [place] [id number] [address] [place] [id number] January, Bipolar I disorder, most rec ent episode (or current) mixed, moderate F31.62 [place] [address] [id number] Dec, Bipolar I disorder, most rec ent episode (or current) mixed, moderate F31.62 and BMI 50.0-59.9, adult Z68.43 [place] [address] [address] Dec, Bipolar I disorder, most rec ent episode (or current) mixed, moderate F31.62 [place] [address] [address] Dec, Chronic pain G89.29 [place] [address] [address] Dec, DM neuro manif type II E11.4 9 ; Right flank pain R10.9 ; pen[facility]entiary 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 Z79.891 ; Encounter for medication monitoring Z51.81 and BMI 50.0-59.9, adult Z68.43 [place] [address] [address] Dec, Bipolar I disorder, most rec ent episode (or current) mixed, moderate F31.62 [place] [address] [place] [id number] [place] [address] Nov, Bipolar I disorder, most rec ent episode (or current) mixed, moderate F31.62 [place] [address] [place] [id number] [place] [phone] Nov, Chronic pain G89.29 [place] [address] [place] [id number] [place] [address] Nov, Bipolar I disorder, most rec ent episode (or current) mixed, moderate F31.62 [place] [address] [place] [id number] [place] [phone] Nov, Hypokalemia E87.6 [place] [address] [place] [id number] [place] [phone] Nov, Bipolar I disorder, most rec ent episode (or current) mixed, moderate F31.62 [place] [address] [place] [id number] [place] [address] Oct, Chronic pain G89.29 [place] [address] [address] Oct, BMI 50.0-59.9, adult Z68.43 and Bipolar I disorder, most recent episode (or current) mixed, moderate F31.62 [place] [address] [address] Oct, Bipolar I disorder, most rec ent episode (or current) mixed, moderate F31.62 [place] [address] [address] Oct, [place] [address] [address] Oct, Hypokalemia E87.6 [place] [address] [address] Oct, DM neuro manif type II E11.4 9 [place] [address] [address] Oct, Bipolar I disorder, most rec ent episode (or current) mixed, moderate F31.62 [place] [address] [place] [id number] [place] [address] Oct, Bipolar I disorder, most rec ent episode (or current) mixed, moderate F31.62 [place] [address] [address] 14 Oct, 2017 Hyperkalemia E87.5 ; Falling R29.6 ; BMI 50.0-59.9, adult Z68.43 and Acute left ankle pain M25.572 [place] [address] [address] 08 Oct, 2017 DM neuro manif type II E11.4 9 [place] [address] [address] Oct, [place] [address] [address] Sep, Chronic pain G89.29 [place] [address] [address] Sep, [place] [address] [address] Sep, Bilateral primary osteoarthr itis of knee M17.0 [place] [address] [address] Sep, Generalized edema R60.1 [place] [address] [address] 16 Sep, 2017 Bipolar I disorder, most rec ent episode (or current) mixed, moderate F31.62 [place] [address] [address] 15 Sep, 2017 Hypoxia R09.02 ; Other hyper volemia E87.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 ; Anemia of chronic illness D63.8 and BMI 50.0- 59.9, adult Z68.43 [place] [address] [address] Sep, [facility] [address] [id number] [address] [place] [address] Sep, Bipolar I disorder, most rec ent episode (or current) mixed, moderate F31.62 [facility] [address] [id number] [address] [place] [address] Aug, Chronic pain G89.29 [facility] [address] [facility] [id number] [place] [address] Aug, Generalized edema R60.1 [facility] [address] [id number] [address] [place] [id number] Aug, [facility] [address] [facility] [id number] [address] [place] [phone] Aug, [facility] [address] [facility] [id number] [place] [address] Aug, Bipolar I disorder, most rec ent episode (or current) mixed, moderate F31.62 [facility] [address] [facility] [id number] [place] [id number] 07 Aug, 2017 Bipolar I disorder, most rec ent episode (or current) mixed, moderate F31.62 [facility] [address] [facility] [id number] [place] [address] 04 Aug, 2017 Chronic pain G89.29 [facility] [address] [facility] [id number] [place] [address] Jul, Bipolar I disorder, most rec ent episode (or current) mixed, moderate F31.62 [facility] [address] [id number] [address] [place] [address] Jul, Bipolar I disorder, most rec ent episode (or current) mixed, moderate F31.62 and BMI 60.0-69.9, adult Z68.44 [facility] [address] [facility] [id number] [place] [id number] 16 Jul, 2017 Bipolar I disorder, most rec ent episode (or current) mixed, moderate F31.62 [facility] [address] [facility] [id number] [place] [id number] 06 Jul, 2017 Chronic pain G89.29 [facility] [address] [facility] [id number] [place] [address] Jul, Bipolar I disorder, most rec ent episode (or current) mixed, moderate F31.62 [facility] [address] [facility] [id number] [place] [address] Jun, Polyneuropathy associated wi th underlying disease G63 and Diabetes E11.9 [facility] [address] [facility] [id number] [place] [address] Jun, Bipolar I disorder, most rec ent episode (or current) mixed, moderate F31.62 [facility] [address] [facility] [id number] [place] [address] Jun, Chronic pain G89.29 [facility] [address] [facility] [id number] [place] [id number] 27 May, 2017 Bipolar I disorder, most rec ent episode (or current) mixed, moderate F31.62 [place] [address] [facility] [id number] [place] [phone] May, Bipolar I disorder, most rec ent episode (or current) mixed, moderate F31.62 [facility] [address] [facility] [id number] [place] [id number] 20 May, 2017 Diabetic polyneuropathy asso ciated with type 2 diabetes mellitus E11.42 [facility] [address] [facility] [id number] [place] [id number] 18 May, 2017 Bipolar I disorder, most rec ent episode (or current) mixed, moderate F31.62 [facility] [address] [facility] [id number] [place] [id number] 13 May, 2017 Bipolar I disorder, most rec ent episode (or current) mixed, moderate F31.62 [facility] [address] [facility] [id number] [place] [address] May, Chronic pain G89.29 [facility] [address] [id number] [address] [place] [address] Apr, Bipolar I disorder, most rec ent episode (or current) mixed, moderate F31.62 [facility] [address] [id number] [address] [place] [id number] Apr, [facility] [address] [id number] [address] [place] [address] Apr, Chronic pain G89.29 and DM n euro manif type II E11.49 [facility] [address] [id number] [address] [place] [id number] Apr, [facility] [address] [id number] [address] [place] [id number] Apr, Bipolar I disorder, most rec ent episode (or current) mixed, moderate F31.62 [facility] [address] [facility] [id number] [place] [id number] Apr, Chronic pain G89.29 [facility] [address] [id number] [address] [place] [address] Apr, Iliotibial band syndrome, le ft M76.32 [facility] [address] [id number] [address] [place] [id number] Apr, Bipolar I disorder, most rec ent episode (or current) mixed, moderate F31.62 [facility] [address] [facility] [id number] [place] [id number] Mar, Bipolar I disorder, most rec ent episode (or current) mixed, moderate F31.62 [facility] [address] [facility] [id number] [place] [phone] Mar, Bipolar I disorder, most rec ent episode (or current) mixed, moderate F31.62 [facility] [address] [facility] [id number] [place] [id number] Mar, [facility] [address] [id number] [address] [place] [id number] Mar, Bipolar I disorder, most rec ent episode (or current) mixed, moderate F31.62 [facility] [address] [facility] [id number] [place] [address] Mar, Chronic pain G89.29 [facility] [address] [facility] [id number] [place] [phone] Mar, Bipolar I disorder, most rec ent episode (or current) mixed, moderate F31.62 [facility] [address] [facility] [id number] [place] [address] Mar, Bipolar I disorder, most rec ent episode (or current) mixed, moderate F31.62 [facility] [address] [facility] [id number] [place] [id number] Mar, Acute pain of left knee M25. 562 ; Left hip pain M25.552 ; Generalized edema R60.1 and Tongue swelling R22.0 [facility] [address] [facility] [id number] [place] [id number] Mar, [facility] [address] [facility] [id number] [place] [id number] Feb, Chronic pain G89.29 [facility] [address] [facility] [id number] [place] [id number] Feb, Diabetes E11.9 [facility] [address] [facility] [id number] [place] [phone] January, Chronic pain G89.29 [facility] [address] [facility] [id number] [place] [id number] January, [facility] [address] [facility] [id number] [place] [id number] January, Bipolar I disorder, most rec ent episode (or current) mixed, moderate F31.62 [facility] [address] [facility] [id number] [place] [phone] Dec, Bipolar I disorder, most rec ent episode (or current) mixed, moderate F31.62 [facility] [address] [id number] [address] [place] [address] Dec, Chronic pain G89.29 [facility] [address] [id number] [address] [place] [phone] Dec, Bipolar I disorder, most rec ent episode (or current) mixed, moderate F31.62 [facility] [address] [facility] [id number] [place] [phone] Dec, Diabetes E11.9 ; Essential h ypertension I10 ; Chronic pain G89.29 and Morbid obesity E66.01 [facility] [address] [id number] [address] [place] [id number] Dec, [facility] [address] [facility] [id number] [place] [phone] Dec, Bipolar I disorder, most rec ent episode (or current) mixed, moderate F31.62 [facility] [address] [id number] [address] [place] [phone] Dec, Bipolar I disorder, most rec ent episode (or current) mixed, moderate F31.62 [facility] [address] [facility] [id number] [place] [id number] Nov, Chronic pain G89.29 [facility] [address] [id number] [address] [place] [id number] Nov, Bipolar I disorder, most rec ent episode (or current) mixed, moderate F31.62 [facility] [address] [id number] [address] [place] [phone] Nov, [facility] [address] [facility] [id number] [place] [phone] Nov, Bipolar I disorder, most rec ent episode (or current) mixed, moderate F31.62 [facility] [address] [facility] [id number] [place] [id number] Nov, Bipolar I disorder, most rec ent episode (or current) mixed, moderate F31.62 [facility] [address] [facility] [id number] [place] [phone] Nov, [facility] [address] [facility] [id number] [place] [id number] Nov, [facility] [address] [facility] [id number] [place] [phone] Nov, [facility] [address] [facility] [id number] [place] [address] Oct, Chronic pain G89.29 [facility] [address] [place] [id number] [place] [id number] Oct, Bipolar I disorder, most rec ent episode (or current) mixed, moderate F31.62 [facility] [address] [place] [id number] [address] [place] [id number] Oct, [facility] [address] [place] [id number] [place] [id number] Oct, Chronic pain G89.29 ; Diabet es E11.9 ; Anxiety F41.9 and 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 [facility] [address] [place] [id number] [place] [id number] Oct, [facility] [address] [facility] [id number] [place] [phone] Oct, Diabetes E11.9 [facility] [address] [facility] [id number] [place] [id number] Oct, Bipolar I disorder, most rec ent episode (or current) mixed, moderate F31.62 [facility] [address] [facility] [id number] [place] [address] Sep, Chronic pain G89.29 [facility] [address] [facility] [id number] [place] [id number] Sep, Chronic pain G89.29 [facility] [address] [id number] [address] [place] [id number] Aug, Chronic pain G89.29 [facility] [address] [id number] [address] [place] [phone] Jul, [facility] [address] [facility] [id number] [place] [id number] Jul, Diabetes E11.9 [facility] [address] [id number] [address] [place] [id number] Jul, Chronic pain G89.29 [facility] [address] [id number] [address] [place] [id number] Jul, Bipolar I disorder, most rec ent episode (or current) mixed, moderate F31.62 [facility] [address] [facility] [id number] [place] [id number] Jun, Bipolar I disorder, most rec ent episode (or current) mixed, moderate F31.62 [facility] [address] [id number] [address] [place] [address] Jun, [facility] [address] [facility] [id number] [place] [id number] Jun, Bipolar I disorder, most rec ent episode (or current) mixed, moderate F31.62 [facility] [address] [id number] [address] [place] [phone] 30 May, 2016 Insomnia, unspecified type G 47.00 [facility] [address] [id number] [address] [place] [phone] May, Bipolar I disorder, most rec ent episode (or current) mixed, moderate F31.62 [facility] [address] [facility] [id number] [place] [id number] 14 May, 2016 [facility] [address] [facility] [id number] [place] [id number] May, Bipolar I disorder, most rec ent episode (or current) mixed, moderate F31.62 [place] [address] [facility] [id number] [place] [address] May, Diabetes E11.9 and Essential hypertension I10 [place] [address] [facility] [id number] [place] [address] Apr, Chronic pain G89.29 [place] [address] [facility] [id number] [place] [id number] Apr, Bipolar I disorder, most rec ent episode (or current) mixed, moderate F31.62 [place] [address] [facility] [id number] [place] [phone] Apr, [place] [address] [facility] [id number] [place] [id number] Apr, [place] [address] [place] [id number] [place] [address] Mar, Chronic pain G89.29 ; Headac he, unspecified headache type R51 ; Neuropathy G62.9 ; Pain of right hip joint M25.551 and Essential hypertension I10 [place] [address] [facility] [id number] [place] [address] Mar, Chronic pain G89.29 [place] [address] [facility] [id number] [place] [id number] Mar, Bipolar I disorder, most rec ent episode (or current) mixed, moderate F31.62 [place] [address] [facility] [id number] [place] [id number] Feb, Bipolar I disorder, most rec ent episode (or current) mixed, moderate F31.62 and Insomnia, unspecified type G47.00 [place] [address] [facility] [id number] [place] [phone] Feb, Chronic pain G89.29 [place] [address] [facility] [id number] [place] [phone] Feb, Bipolar I disorder, most rec ent episode (or current) mixed, moderate F31.62 [facility] [address] [id number] [address] [place] [id number] January, Bipolar I disorder, most rec ent episode (or current) mixed, moderate F31.62 [facility] [address] [id number] [address] [place] [id number] January, Chronic pain G89.29 [facility] [address] [id number] [address] [place] [id number] January, Chronic pain G89.29 and Esse ntial hypertension I10 [facility] [address] [id number] [address] [place] [phone] January, Bipolar I disorder, most rec ent episode (or current) mixed, moderate F31.62 [facility] [address] [id number] [address] [place] [phone] Dec, [facility] [address] [id number] [address] [place] [phone] Dec, [facility] [address] [id number] [address] [place] [phone] Dec, [facility] [address] [facility] [id number] [place] [phone] Dec, [facility] [address] [id number] [address] [place] [address] Nov, Reactive airway disease J45. 909 [facility] [address] [id number] [address] [place] [id number] Nov, [facility] [address] [id number] [address] [place] [phone] Nov, [facility] [address] [id number] [address] [place] [phone] Nov, [facility] [address] [id number] [address] [place] [phone] Nov, [place] [address] [address] Nov, Onychomycosis B35.1 ; Hammer toe M20.40 ; Hephzibah or callus L84 and DM neuro manif type II E11.49 [place] [address] [address] Nov, Chronic pain G89.29 ; Leukoc ytosis D72.829 and Diabetes E11.9 [place] [id number] [place] [phone] Nov, [place] [address] [address] Oct, Bronchitis J40 [place] [address] [phone] Oct, [place] [address] [address] Oct, [place] [address] [address] Oct, Mastoiditis, unspecified lat erality H70.90 and Type 2 diabetes mellitus with complication E11.[address] [address] Sep, [place] [address] [address] Sep, Dysuria R30.0 ; Cough R05 ; Benign prostatic hyperplasia with lower urinary tract symptoms, unspecified morphology N40.1 ; Hypokalemia E87.6 and Eustachian tube dysfunction, unspecified laterality H69.80 [place] [address] [id number] Sep, Moderate mixed bipolar I dis order F31.[address] [id number] Sep, Hypokalemia E87.6 [facility] [address] [id number] [address] [place] [id number] Sep, [facility] [address] [id number] [address] [place] [id number] Sep, Upper respiratory tract infe ction, unspecified type J06.9 [facility] [address] [id number] [address] [place] [id number] Aug, [facility] [address] [id number] [address] [place] [id number] Aug, Dysuria R30.0 [facility] [address] [id number] [address] [place] [id number] Aug, [facility] [address] [id number] [address] [place] [id number] Jul, [facility] [address] [id number] [address] [place] [id number] Jul, [facility] [address] [id number] [address] [place] [id number] Jul, [facility] [address] [id number] [address] [place] [id number] Jul, [facility] [address] [facility] [id number] [place] [id number] Jun, [facility] [address] [id number] [address] [place] [id number] Jun, [facility] [address] [id number] [address] [place] [id number] Jun, [facility] [address] [id number] [address] [place] [id number] May, [facility] [address] [id number] [address] [place] [id number] May, Bipolar I disorder, most rec ent episode (or current) mixed, moderate 296.62 [facility] [address] [facility] [id number] [place] [id number] May, [facility] [address] [facility] [id number] [place] [id number] May, Bipolar I disorder, most rec ent episode (or current) mixed, moderate 296.62 and Major depressive disorder, recurrent episode, severe, specified as with psychotic behavior 296.34 [facility] [address] [facility] [id number] [place] [id number] May, Bipolar I disorder, most rec ent episode (or current) mixed, moderate 296.62 [facility] [address] [facility] [facility] [id number] [place] [address] May, [facility] [address] [id number] [address] [place] [address] Apr, [facility] [address] [id number] [address] [place] [address] Apr, [facility] [address] [id number] [address] [place] [address] Apr, Unspecified disorder of kidn ey and ureter 593.9 and Diabetes mellitus type 2, uncontrolled 250.02 [facility] [address] [id number] [address] [place] [address] Apr, [facility] [address] [facility] [id number] [place] [address] Apr, [facility] [address] [id number] [address] [place] [address] Apr, [facility] [address] [facility] [id number] [place] [address] Apr, [facility] [address] [id number] [address] [place] [address] Apr, Diabetes mellitus type II, u ncontrolled 250.02 [facility] [address] [id number] [address] [place] [address] Apr, [facility] [address] [id number] [address] [place] [address] Mar, [facility] [address] [id number] [address] [place] [address] Mar, [facility] [address] [id number] [address] [place] [address] Mar, [facility] [address] [address] Mar, Major depressive disorder, r ecurrent episode, severe, specified as with psychotic behavior 296.34 and Bipolar I disorder, most recent episode (or current) mixed, moderate 296.62 [facility] [address] [address] Mar, Diabetes 250.00 ; Anuria 788 .5 ; Nausea and vomiting 787.01 and Diarrhea 787.91 [facility] [address] [id number] [address] [place] [address] Mar, Diabetes 250.00 [facility] [address] [address] Mar, [facility] [address] [address] Mar, Diabetes 250.00 [facility] [address] [id number] [address] [place] [address] Mar, [facility] [address] [id number] [address] [place] [address] Mar, [facility] [address] [id number] [address] [place] [address] Mar, [facility] [address] [id number] [address] [place] [address] Mar, [facility] [address] [id number] [address] [place] [address] Mar, Bipolar I disorder, most rec ent episode (or current) mixed, moderate 296.62 and Major depressive disorder, recurrent episode, severe, specified as with psychotic behavior 296.[address] [address] Mar, Magnesium deficiency 275.2 ; Hypokalemia 276.8 ; Nausea & vomiting 787.01 and Diabetes mellitus type 2, uncontrolled 250.[address] [address] Feb, [address] [address] Feb, Bipolar I disorder, most rec ent episode (or current) mixed, moderate 296.[address] [address] Feb, Nausea and vomiting 787.01 ; Left elbow pain 719.42 ; Anuria 788.5 and Diabetes 250.[address] [address] Feb, [address] [address] Feb, Hypopotassemia 276.8 and Hyp okalemia 276.[address] [address] Feb, Hypopotassemia 276.8 and Hyp okalemia 276.[address] [address] Feb, Seborrheic keratoses 702.[address] [address] Feb, Hypopotassemia 276.8 and Low magnesium levels 275.[address] [address] January, [address] [address] January, [facility] [address] [id number] [address] [place] [address] January, [facility] [address] [id number] [address] [place] [address] January, Scalp lesion 709.9 [facility] [address] [id number] [address] [place] [address] January, [facility] [address] [id number] [address] [place] [address] Dec, Tear of medial cartilage or meniscus of knee, current 836.0 and 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 [facility] [address] [id number] [address] [place] [address] Dec, [facility] [address] [id number] [address] [place] [address] Dec, [facility] [address] [id number] [address] [place] [address] Dec, Squamous cell carcinoma, 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 [facility] [address] [id number] [address] [place] [address] Dec, [facility] [address] [id number] [address] [place] [address] Dec, [facility] [address] [id number] [address] [place] [address] Nov, [facility] [address] [id number] [address] [place] [address] Nov, [facility] [address] [id number] [address] [place] [address] Nov, [facility] [address] [id number] [address] [place] [address] Nov, [facility] [address] [id number] [address] [place] [address] Nov, [facility] [address] [id number] [address] [place] [address], [place] [address] 09 Nov, 2014 [facility] [address] [id number] [address] [place] [address], [place] [address] Nov, 2014 [facility] [address] [id number] [address] [place] [address], [place] [address] Nov, 2014 [facility] [address] [id number] [address] [place] [address], [place] [address] Nov, 2014 [facility] [address] [id number] [address] [place] [address], [place] [address] Nov, 2014 [facility] [address] [id number] [address] [place] [address], [place] [address] Nov, 2014 [facility] [address] [id number] [address] [place] [address], [place] [address] Nov, 2014 [facility] [address] [id number] [address] [place] [address], [place] [address] Oct, 2014 [facility] [address] [id number] [address] [place] [address], [place] [address] Oct, 2014 [facility] [address] [id number] [address] [place] [address] Oct, 2014 [facility] [address] [id number] [address] [place] [address] Oct, 2014 [facility] [address] [id number] [address] [place] [address] Oct, 2014 [facility] [address] [id number] [address] [place] [address], [place] [address] Oct, 2014 [facility] [address] [id number] [address] [place] [address] Oct, 2014 [facility] [address] [id number] [address] [place] [address] Oct, 2014 [facility] [address] [id number] [address] [place] [address] Oct, [facility] [address] [id number] [address] [place] [address], [place] [address] Sep, [facility] [address] [id number] [address] [place] [address], [place] [address] Sep, [facility] [address] [id number] [address] [place] [address], [place] [address] Sep, [facility] [address] [id number] [address] [place] [address], [place] [address] Sep, [facility] [address] [id number] [address] [place] [address], [place] [address] Sep, [facility] [address] [id number] [address] [place] [address], [place] [address] Sep, [facility] [address] [id number] [address] [place] [address], [place] [address] Sep, [facility] [address] [id number] [address] [place] [address], [place] [address] Sep, [facility] [address] [id number] [address] [place] [address], [place] [address] Sep, [facility] [address] [id number] [address] [place] [address], [place] [address] Sep, [facility] [address] [id number] [address] [place] [address], [place] [address] Sep, [facility] [address] [id number] [address] [place] [address] Sep, [facility] [address] [id number] [address] [place] [address], [place] [address] Sep, [facility] [address] [id number] [address] [place] [address] Sep, [facility] [address] [id number] [address] [place] [address], [place] [address] Sep, [facility] [address] [id number] [facility] [place] [address] Sep, [facility] [address] [id number] [facility] [place] [address] Aug, [facility] [address] [id number] [facility] [place] [address] Aug, [facility] [address] [id number] [facility] [place] [address] Aug, [facility] [address] [id number] [facility] [place] [address] Aug, [facility] [address] [id number] [facility] [place] [address] Aug, [facility] [address] [id number] [address] [place] [address], [place] [address] Aug, [facility] [address] [id number] [address] [place] [address], [place] [address] Aug, [facility] [address] [id number] [address] [place] [address], [place] [address] Aug, [facility] [address] [id number] [address] [place] [address], [place] [address] Aug, [facility] [address] [id number] [address] [place] [address], [place] [address] Aug, [facility] [address] [id number] [address] [place] [address], [place] [address] Aug, [facility] [address] [place] [id number] Aug, [facility] [address] [id number] [address] [place] [address], [place] [address] Aug, [facility] [address] [id number] [address] [place] [address], [place] [address] Aug, [facility] [address] [id number] [address] [place] [address], [place] [address] Aug, [facility] [address] [id number] [address] [place] [address], [place] [address] Aug, [facility] [address] [id number] [address] [place] [address], [place] [address] Aug, [facility] [address] [id number] [address] [place] [address], [place] [address] Aug, [facility] [address] [id number] [address] [place] [address], [place] [address] Aug, [facility] [address] [id number] [address] [place] [address], [place] [address] Aug, [facility] [address] [id number] [address] [place] [address], [place] [address] Aug, [facility] [address] [id number] [address] [place] [address], [place] [address] Aug, [facility] [address] [id number] [address] [place] [address], [place] [address] Aug, [facility] [address] [id number] [address] [place] [address], [place] [address] Aug, [facility] [address] [id number] [address] [place] [address], [place] [address] Aug, [facility] [address] [id number] [address] [place] [address], [place] [address] Aug, [facility] [address] [id number] [address] [place] [address], [place] [address] Aug, [facility] [address] [id number] [address] [place] [address], [place] [address] Aug, [facility] [address] [id number] [address] [place] [address], [place] [address] Aug, [facility] [address] [id number] [address] [place] [address], [place] [address] Aug, [facility] [address] [id number] [address] [place] [address], [place] [address] Jul, [facility] [address] [id number] [address] [place] [address], [place] [address] Jul, [facility] [address] [id number] [address] [place] [address], [place] [address] Jul, [facility] [address] [id number] [address] [place] [address], [place] [address] Jul, [facility] [address] [id number] [address] [place] [address], [place] [address] Jul, [facility] [address] [id number] [address] [place] [address], [place] [address] Jul, [facility] [address] [id number] [address] [place] [address], [place] [address] Jul, [facility] [address] [id number] [address] [place] [address], [place] [address] Jul, [facility] [address] [id number] [address] [place] [address], [place] [address] Jul, [facility] [address] [id number] [address] [place] [address], [place] [address] Jul, [facility] [address] [id number] [address] [place] [address], [place] [address] Jun, [facility] [address] [id number] [address] [place] [address], [place] [address] Jun, [facility] [address] [id number] [address] [place] [address] 16 Jun, 2014 [facility] [address] [id number] [address] [place] [address], [place] [address] 16 Jun, 2014 [facility] [address] [id number] [address] [place] [address], [place] [address] 15 Jun, 2014 [facility] [address] [id number] [address] [place] [address], [place] [address] 15 Jun, 2014 [facility] [address] [id number] [facility] [place] [address] 05 Jun, 2014 [facility] [address] [id number] [address] [place] [address], [place] [address] Jun, [facility] [address] [id number] [address] [place] [address], [place] [address] Jun, [facility] [address] [id number] [address] [place] [address], [place] [address] Jun, [facility] [address] [id number] [address] [place] [address], [place] [address] 29 May, 2013 [facility] [address] [id number] [address] [place] [address], [place] [address] 29 May, 2013 [facility] [address] [id number] [address] [place] [address], [place] [address] 26 May, 2013 [facility] [address] [id number] [address] [place] [address], [place] [address] 26 May, 2013 [facility] [address] [id number] [address] [place] [address], [place] [address] 17 May, 2013 [facility] [address] [id number] [address] [place] [address], [place] [address] 17 May, 2013 [facility] [address] [id number] [address] [place] [address], [place] [address] 15 May, 2013 [facility] [address] [id number] [address] [place] [address], [place] [address] 15 Sep, 2013 [facility] [address] [id number] [address] [place] [address], [place] [address] 15 Sep, 2013 [facility] [address] [id number] [address] [place] [address], [place] [address] 15 Sep, 2013 [facility] [address] [id number] [address] [place] [address], [place] [address] 10 May, 2013 [facility] [address] [id number] [address] [place] [address], [place] [address] May, [facility] [address] [id number] [facility] [place] [address] May, [facility] [address] [id number] [facility] [place] [address] May, [facility] [address] [id number] [facility] [place] [address] May, [facility] [address] [id number] [address] [place] [address], [place] [address] May, [facility] [address] [id number] [facility] [place] [address] Apr, [facility] [address] [id number] [address] [place] [address], [place] [address] Apr, [facility] [address] [id number] [address] [place] [address], [place] [address] Apr, [facility] [address] [id number] [address] [place] [address], [place] [address] Apr, [facility] [address] [id number] [address] [place] [address], [place] [address] Apr, [facility] [address] [id number] [address] [place] [address], [place] [address] Apr, [facility] [address] [id number] [address] [place] [address], [place] [address] Apr, [facility] [address] [id number] [address] [place] [address], [place] [address] Apr, [facility] [address] [id number] [address] [place] [address], [place] [address] Apr, [facility] [address] [id number] [address] [place] [address], [place] [address] Apr, [facility] [address] [id number] [address] [place] [address], [place] [address] Apr, [facility] [address] [id number] [facility] [place] [address] Apr, [facility] [address] [id number] [address] [place] [address], [place] [address] Apr, [facility] [address] [id number] [address] [place] [address], [place] [address] Apr, [facility] [address] [id number] [address] [place] [address], [place] [address] Apr, [facility] [address] [id number] [address] [place] [address], [place] [address] Mar, [facility] [address] [id number] [address] [place] [address], [place] [address] Mar, [facility] [address] [id number] [address] [place] [address], [place] [address] Mar, [facility] [address] [id number] [address] [place] [address], [place] [address] Mar, [facility] [address] [id number] [address] [place] [address], [place] [address] Mar, [facility] [address] [id number] [address] [place] [address], [place] [address] Mar, [facility] [address] [id number] [address] [place] [address], [place] [address] Mar, [facility] [address] [id number] [address] [place] [address], [place] [address] Mar, [facility] [address] [id number] [address] [place] [address], [place] [address] Mar, [facility] [address] [id number] [address] [place] [address], [place] [address] Mar, [facility] [address] [id number] [address] [place] [address], [place] [address] Mar, [facility] [address] [id number] [address] [place] [address], [place] [address] Mar, [facility] [address] [id number] [facility] [place] [address] Mar, 2013 [facility] [address] [id number] [facility] [place] [address] Mar, 2013 [facility] [address] [id number] [facility] [place] [address] Mar, 2013 [facility] [address] [id number] [address] [place] [address], [place] [address] Mar, 2013 [facility] [address] [id number] [address] [place] [address], [place] [address] Mar, [facility] [address] [id number] [address] [place] [address], [place] [address] Mar, [facility] [address] [id number] [address] [place] [address], [place] [address] Feb, [facility] [address] [id number] [address] [place] [address], [place] [address] Feb, [facility] [address] [id number] [address] [place] [address], [place] [address] Feb, [facility] [address] [id number] [address] [place] [address], [place] [address] Feb, [facility] [address] [id number] [address] [place] [address], [place] [address] Feb, [facility] [address] [id number] [address] [place] [address], [place] [address] Feb, [facility] [address] [id number] [address] [place] [address], [place] [address] Feb, [facility] [address] [id number] [address] [place] [address], [place] [address] Feb, [facility] [address] [id number] [address] [place] [address], [place] [address] Feb, [facility] [address] [id number] [address] [place] [address], [place] [address] Feb, [facility] [address] [id number] [facility] [place] [address] Feb, [facility] [address] [id number] [address] [place] [address], [place] [address] Feb, [facility] [address] [id number] [address] [place] [address], [place] [address] Feb, [facility] [address] [id number] [address] [place] [address], [place] [address] Feb, [facility] [address] [id number] [address] [place] [address], [place] [address] January, [facility] [address] [id number] [address] [place] [address], [place] [address] January, [facility] [address] [id number] [address] [place] [address], [place] [address] January, [facility] [address] [id number] [address] [place] [address], [place] [address] January, [facility] [address] [id number] [address] [place] [address], [place] [address] January, [facility] [address] [id number] [address] [place] [address], [place] [address] January, [facility] [address] [id number] [address] [place] [address], [place] [address] January, [facility] [address] [id number] [address] [place] [address], [place] [address] January, [facility] [address] [id number] [address] [place] [address], [place] [address] January, [facility] [address] [id number] [address] [place] [address], [place] [address] January, [facility] [address] [id number] [address] [place] [address], [place] [address] January, [facility] [address] [id number] [facility] [place] [address] January, [facility] [address] [id number] [address] [place] [address], [place] [address] January, [facility] [address] [id number] [address] [place] [address], [place] [address] January, [facility] [address] [id number] [address] [place] [address], [place] [address] Dec, [facility] [address] [id number] [address] [place] [address], [place] [address] Dec, [facility] [address] [id number] [address] [place] [address], [place] [address] Dec, [facility] [address] [id number] [address] [place] [address], [place] [address] Dec, [facility] [address] [id number] [address] [place] [address], [place] [address] Dec, [facility] [address] [id number] [address] [place] [address], [place] [address] Dec, [facility] [address] [id number] [address] [place] [address], [place] [address] Dec, [facility] [address] [id number] [address] [place] [address], [place] [address] Dec, [facility] [address] [id number] [address] [place] [address], [place] [address] Dec, [facility] [address] [id number] [address] [place] [address], [place] [address] Dec, [facility] [address] [id number] [address] [place] [address], [place] [address] Nov, [facility] [address] [address] [id number] [address] [place] [address], [place] [address] Nov, [facility] [address] [id number] [address] [place] [address], [place] [address] Nov, [facility] [address] [id number] [address] [place] [address], [place] [address] 10 Nov, 2013 [facility] [address] [id number] [address] [place] [address], [place] [address] Nov, [facility] [address] [id number] [address] [place] [address], [place] [address] Nov, [facility] [address] [id number] [address] [place] [address], [place] [address] Nov, [facility] [address] [id number] [address] [place] [address], [place] [address] Nov, [facility] [address] [id number] [address] [place] [address], [place] [address] Nov, [facility] [address] [id number] [address] [place] [address], [place] [address] Nov, [facility] [address] [id number] [address] [place] [address], [place] [address] Oct, [facility] [address] [id number] [address] [place] [address], [place] [address] Oct, [facility] [address] [id number] [address] [place] [address], [place] [address] Oct, [facility] [address] [id number] [address] [place] [address], [place] [address] Oct, [facility] [address] [id number] [address] [place] [address], [place] [address] Oct, [facility] [address] [id number] [address] [place] [address], [place] [address] Oct, [facility] [address] [id number] [address] [place] [address], [place] [address] 14 Oct, 2013 [facility] [address] [id number] [address] [place] [address], [place] [address] Oct, [facility] [address] [id number] [address] [place] [address], [place] [address] 05 Oct, 2013 [facility] [address] [id number] [address] [place] [address], [place] [address] Oct, [facility] [address] [id number] [address] [place] [address], [place] [address] Oct, [facility] [address] [id number] [address] [place] [address], [place] [address] Oct, [facility] [address] [id number] [address] [place] [address], [place] [address] Oct, [facility] [address] [id number] [address] [place] [address], [place] [address] Oct, [facility] [address] [id number] [address] [place] [address], [place] [address] Sep, [facility] [address] [id number] [address] [place] [address], [place] [address] Sep, [facility] [address] [id number] [address] [place] [address], [place] [address] Sep, [facility] [address] [id number] [address] [place] [address], [place] [address] Sep, [facility] [address] [id number] [address] [place] [address], [place] [address] Sep, [facility] [address] [id number] [address] [place] [address], [place] [address] Sep, [facility] [address] [id number] [address] [place] [address], [place] [address] Sep, [facility] [address] [id number] [address] [place] [address], [place] [address] Sep, [facility] [address] [id number] [address] [place] [address], [place] [address] 08 Sep, 2013 [facility] [address] [id number] [address] [place] [address], [place] [address] 08 Sep, 2013 [facility] [address] [id number] [address] [place] [address], [place] [address] Aug, [facility] [address] [id number] [address] [place] [address], [place] [address] Aug, [facility] [address] [id number] [address] [place] [address], [place] [address] Jul, [facility] [address] [id number] [address] [place] [address], [place] [address] Jul, [facility] [address] [id number] [address] [place] [address], [place] [address] Jul, [facility] [address] [id number] [address] [place] [address], [place] [address] Jul, [facility] [address] [id number] [address] [place] [address], [place] [address] Jul, [facility] [address] [id number] [address] [place] [address] Jul, [facility] [address] [id number] [address] [place] [address], [place] [address] Jul, [facility] [address] [id number] [address] [place] [address] Jul, [facility] [address] [id number] [address] [place] [address] Jul, [facility] [address] [id number] [address] [place] [address] Jul, [facility] [address] [id number] [address] [place] [address], [place] [address] Jul, [facility] [address] [id number] [address] [place] [address] Jul, [facility] [address] [id number] [address] [place] [address] Jul, [facility] [address] [id number] [address] [place] [address], [place] [address] 05 Jul, 2012 [facility] [address] [id number] [address] [place] [address], [place] [address] Jul, 2012 [facility] [address] [id number] [address] [place] [address], [place] [address] Jul, 2012 [facility] [address] [id number] [address] [place] [address], [place] [address] Jul, 2012 [facility] [address] [id number] [address] [place] [address], [place] [address] Jul, 2012 [facility] [address] [id number] [address] [place] [address], [place] [address] Jul, 2012 [facility] [address] [id number] [address] [place] [address], [place] [address] Jun, 2012 [facility] [address] [id number] [address] [place] [address], [place] [address] Jun, 2012 [facility] [address] [id number] [address] [place] [address], [place] [address] Jun, 2012 [facility] [address] [id number] [address] [place] [address], [place] [address] Jun, 2012 [facility] [address] [id number] [address] [place] [address], [place] [address] 16 Jun, 2012 [facility] [address] [id number] [address] [place] [address], [place] [address] 16 Jun, 2012 [facility] [address] [id number] [address] [place] [address] 10 Jun, 2012 [facility] [address] [id number] [address] [place] [address], [place] [address] 10 Jun, 2012 [facility] [address] [id number] [address] [place] [address], [place] [address] Jun, 2012 [facility] [address] [id number] [address] [place] [address], [place] [address] Jun, [facility] [address] [id number] [address] [place] [address], [place] [address] Jun, [facility] [address] [id number] [address] [place] [address], [place] [address] May, [facility] [address] [id number] [address] [place] [address], [place] [address] May, 2012 [facility] [address] [id number] [address] [place] [address], [place] [address] May, 2012 [facility] [address] [id number] [address] [place] [address], [place] [address] 17 May, 2012 [facility] [address] [id number] [address] [place] [address], [place] [address] May, [facility] [address] [id number] [address] [place] [address], [place] [address] May, [facility] [address] [id number] [address] [place] [address], [place] [address] May, [facility] [address] [id number] [address] [place] [address], [place] [address] May, [facility] [address] [id number] [address] [place] [address], [place] [address] Apr, [facility] [address] [id number] [address] [place] [address], [place] [address] Apr, [facility] [address] [id number] [address] [place] [address], [place] [address] Apr, [facility] [address] [id number] [address] [place] [address], [place] [address] Apr, [facility] [address] [id number] [address] [place] [address], [place] [address] Apr, [facility] [address] [id number] [address] [place] [address], [place] [address] Mar, [facility] [address] [id number] [address] [place] [address], [place] [address] Mar, [facility] [address] [id number] [address] [place] [address], [place] [address] Mar, [facility] [address] [id number] [address] [place] [address], [place] [address] Mar, [facility] [address] [id number] [address] [place] [address], [place] [address] Mar, [facility] [address] [id number] [address] [place] [address], [place] [address] Mar, [facility] [address] [id number] [address] [place] [address], [place] [address] Mar, [facility] [address] [id number] [address] [place] [address], [place] [address] Mar, [facility] [address] [id number] [address] [place] [address], [place] [address] Feb, [facility] [address] [id number] [address] [place] [address], [place] [address] Feb, [facility] [address] [id number] [address] [place] [address], [place] [address] January, [facility] [address] [id number] [address] [place] [address], [place] [address] January, [facility] [address] [id number] [address] [place] [address], [place] [address] Dec, [facility] [address] [id number] [address] [place] [address], [place] [address] Dec, [facility] [address] [id number] [address] [place] [address], [place] [address] Nov, [facility] [address] [id number] [address] [place] [address], [place] [address] Nov, [facility] [address] [id number] [address] [place] [address], [place] [address] Nov, [facility] [address] [id number] [address] [place] [address], [place] [address] 14 Nov, 2012 [facility] [address] [id number] [address] [place] [address], [place] [address] Oct, [facility] [address] [id number] [address] [place] [address], [place] [address] Oct, [facility] [address] [id number] [address] [place] [address], [place] [address] Oct, [facility] [address] [id number] [address] [place] [address], [place] [address] Oct, [facility] [address] [id number] [address] [place] [address], [place] [address] 16 Oct, 2012 [facility] [address] [id number] [address] [place] [address], [place] [address] 14 Oct, 2012 [facility] [address] [id number] [address] [place] [address], [place] [address] 08 Oct, 2012 [facility] [address] [id number] [address] [place] [address], [place] [address] 07 Oct, 2012 [facility] [address] [id number] [address] [place] [address], [place] [address] 03 Oct, 2012 [facility] [address] [id number] [address] [place] [address], [place] [address] Sep, [facility] [address] [id number] [address] [place] [address], [place] [address] Sep, [facility] [address] [id number] [address] [place] [address], [place] [address] Sep, [facility] [address] [id number] [address] [place] [address], [place] [address] Sep, [facility] [address] [id number] [address] [place] [address], [place] [address] Sep, [facility] [address] [id number] [address] [place] [address], [place] [address] Sep, [facility] [address] [id number] [address] [place] [address], [place] [address] Sep, [facility] [address] [id number] [address] [place] [address], [place] [address] Sep, [facility] [address] [id number] [address] [place] [address], [place] [address] Aug, [facility] [address] [id number] [address] [place] [address], [place] [address] Aug, [facility] [address] [id number] [address] [place] [address], [place] [address] Aug, [facility] [address] [id number] [address] [place] [address], [place] [address] Aug, [facility] [address] [id number] [address] [place] [address], [place] [address] Aug, [facility] [address] [id number] [address] [place] [address], [place] [address] Aug, [facility] [address] [id number] [address] [place] [address], [place] [address] Aug, [facility] [address] [id number] [address] [place] [address], [place] [address] Aug, [facility] [address] [id number] [address] [place] [address], [place] [address] Jul, [facility] [address] [id number] [address] [place] [address], [place] [address] Jul, [facility] [address] [id number] [address] [place] [address], [place] [address] Jul, [facility] [address] [id number] [address] [place] [address], [place] [address] Jul, [facility] [address] [id number] [address] [place] [address], [place] [address] Jul, [facility] [address] [id number] [address] [place] [address], [place] [address] Jul, [facility] [address] [id number] [address] [place] [address], [place] [address] Jun, [facility] [address] [id number] [address] [place] [address], [place] [address] Jun, [facility] [address] [id number] [address] [place] [address], [place] [address] Jun, [facility] [address] [id number] [address] [place] [address], [place] [address] Jun, [facility] [address] [id number] [address] [place] [address], [place] [address] Jun, [facility] [address] [id number] [address] [place] [address], [place] [address] Jun, [facility] [address] [id number] [address] [place] [address], [place] [address] Jun, [facility] [address] [id number] [address] [place] [address], [place] [address] Jun, [facility] [address] [id number] [address] [place] [address], [place] [address] 10 Jun, 2012 [facility] [address] [id number] [address] [place] [address], [place] [address] 26 May, 2012 [facility] [address] [id number] [address] [place] [address], [place] [address] 24 May, 2012 [facility] [address] [id number] [address] [place] [address], [place] [address] 18 May, 2012 [facility] [address] [id number] [address] [place] [address], [place] [address] Apr, [facility] [address] [id number] [address] [place] [address], [place] [address] Apr, [facility] [address] [id number] [address] [place] [address], [place] [address] Apr, [facility] [address] [id number] [address] [place] [address], [place] [address] Apr, [facility] [address] [id number] [address] [place] [address], [place] [address] Apr, [facility] [address] [id number] [address] [place] [address], [place] [address] Apr, [facility] [address] [id number] [address] [place] [address], [place] [address] Mar, [facility] [address] [id number] [address] [place] [address], [place] [address] Mar, [facility] [address] [id number] [address] [place] [address], [place] [address] Mar, [facility] [address] [id number] [address] [place] [address], [place] [address] Mar, [facility] [address] [id number] [address] [place] [address], [place] [address] Feb, [facility] [address] [id number] [address] [place] [address], [place] [address] Feb, [facility] [address] [id number] [address] [place] [address], [place] [address] Feb, [facility] [address] [id number] [address] [place] [address], [place] [address] Feb, [facility] [address] [id number] [address] [place] [address], [place] [address] Feb, [facility] [address] [id number] [address] [place] [address], [place] [address] January, [facility] [address] [id number] [address] [place] [address], [place] [address] January, [facility] [address] [id number] [address] [place] [address], [place] [address] January, [facility] [address] [id number] [address] [place] [address], [place] [address] January, [facility] [address] [id number] [address] [place] [address], [place] [address] January, [facility] [address] [id number] [address] [place] [address], [place] [address] January, [facility] [address] [id number] [address] [place] [address], [place] [address] Dec, [facility] [address] [id number] [address] [place] [address], [place] [address] Dec, [facility] [address] [id number] [address] [place] [address], [place] [address] Dec, [facility] [address] [id number] [address] [place] [address], [place] [address] Dec, [facility] [address] [id number] [address] [place] [address], [place] [address] Dec, [facility] [address] [id number] [address] [place] [address], [place] [address] Nov, [facility] [address] [id number] [address] [place] [address], [place] [address] 14 Nov, 2011 [facility] [address] [id number] [address] [place] [address], [place] [address] Nov, [facility] [address] [id number] [address] [place] [address], [place] [address] Nov, [facility] [address] [id number] [address] [place] [address], [place] [address] Oct, [facility] [address] [id number] [address] [place] [address], [place] [address] Oct, [facility] [address] [id number] [address] [place] [address], [place] [address] 24 Oct, 2011 [facility] [address] [id number] [address] [place] [address], [place] [address] 13 Oct, 2011 [facility] [address] [id number] [address] [place] [address], [place] [address] Oct, [facility] [address] [id number] [address] [place] [address], [place] [address] Sep, [facility] [address] [id number] [address] [place] [address], [place] [address] Sep, [facility] [address] [id number] [address] [place] [address], [place] [address] Sep, [facility] [address] [id number] [address] [place] [address], [place] [address] Sep, [facility] [address] [id number] [address] [place] [address], [place] [address] Sep, [facility] [address] [id number] [address] [place] [address], [place] [address] Sep, [facility] [address] [id number] [address] [place] [address], [place] [address] Aug, [facility] [address] [id number] [address] [place] [address], [place] [address] Aug, [facility] [address] [id number] [address] [place] [address] Aug, [facility] [address] [id number] [address] [place] [address] Jul, [facility] [address] [id number] [address] [place] [address] Jul, [facility] [address] [id number] [address] [place] [address], [place] [address] Jul, [facility] [address] [id number] [address] [place] [address], [place] [address] Jul, [facility] [address] [id number] [address] [place] [address] Jun, [facility] [address] [id number] [address] [place] [address] 31 Jun, 2011 [facility] [address] [id number] [address] [place] [address], [place] [address] 18 Jun, 2011 [facility] [address] [id number] [address] [place] [address], [place] [address] 10 Jun, 2011 [facility] [address] [id number] [address] [place] [address], [place] [address] 10 Jun, 2011 [facility] [address] [id number] [address] [place] [address], [place] [address] 10 Jun, 2011 [facility] [address] [id number] [address] [place] [address], [place] [address] 11 Mar, 2011 [facility] [address] [id number] [address] [place] [address], [place] [address] 18 Dec, 2010 [facility] [address] [id number] [address] [place] [address], [place] [address] 11 Dec, 2010 [facility] [address] [id number] [address] [place] [address], [place] [address] 18 Nov, 2010 [facility] [address] [id number] [address] [place] [address], [place] [address] 16 Nov, 2010 [facility] [address] [id number] [address] [place] [address], [place] [address] 10 Sep, 2010 [facility] [address] [id number] [address] [place] [address], [place] [address] 31 Aug, 2010 [facility] [address] [id number] [address] [place] [address], [place] [address] 29 Aug, 2010 [facility] [address] [id number] [address] [place] [address], [place] [address] 29 Aug, 2010 [facility] [address] [id number] [address] [place] [address], [place] [address] 29 Aug, 2010 [facility] [address] [id number] [address] [place] [address], [place] [address] 27 Aug, 2010 [facility] [address] [id number] [address] [place] [address], [place] [address] 14 Aug, 2010 [facility] [address] [id number] [address] [place] [address], [place] [address] 08 Aug, 2010 [facility] [address] [id number] [address] [place] [address], [place] [address] 08 Aug, 2010 [facility] [address] [id number] [address] [place] [address], [place] [address] 07 Aug, 2010 [facility] [address] [id number] [address] [place] [address], [place] [address] 06 Aug, 2010 [facility] [address] [id number] [address] [place] [address], [place] [address] Aug, [facility] [address] [id number] [address] [place] [address], [place] [address] Aug, [facility] [address] [id number] [address] [place] [address], [place] [address] Jul, [facility] [address] [id number] [address] [place] [address], [place] [address] Jul, [facility] [address] [id number] [address] [place] [address], [place] [address] Jul, [facility] [address] [id number] [address] [place] [address], [place] [address] 17 Jul, 2010 [facility] [address] [id number] [address] [place] [address], [place] [address] Jul, [facility] [address] [id number] [address] [place] [address], [place] [address] Jul, [facility] [address] [id number] [address] [place] [address], [place] [address] Jun, [facility] [address] [id number] [address] [place] [address], [place] [address] Jun, [facility] [address] [id number] [address] [place] [address], [place] [address] 19 Jun, 2010 [facility] [address] [id number] [address] [place] [address], [place] [address] 13 Jun, 2010 [facility] [address] [id number] [address] [place] [address], [place] [address] 16 Apr, 2010 [facility] [address] [id number] [address] [place] [address], [place] [address] 20 Mar, 2010 [facility] [address] [id number] [address] [place] [address], [place] [address] 17 Feb, 2010 [facility] [address] [id number] [address] [place] [address], [place] [address] January, [facility] [address] [id number] [address] [place] [address], [place] [address] 15 Dec, 2009 [facility] [address] [id number] [address] [place] [address], [place] [address] Nov, [facility] [address] [id number] [address] [place] [address], [place] [address] 31 Aug, 2009 [facility] [address] [id number] [address] [place] [address], [place] [address] Aug, [facility] [address] [id number] [address] [place] [id number] Aug, [facility] [address] [id number] [address] [place] [id number] Jul, [facility] [address] [id number] [address] [place] [id number] Jul, [facility] [address] [id number] [address] [place] [address], [place] [address] Jul, [facility] [address] [id number] [address] [place] [id number] 30 Jun, 2009 [facility] [address] [id number] [address] [place] [address], [place] [address] 29 Jun, 2009 [facility] [address] [id number] [address] [place] [id number] Jun, [facility] [address] [id number] [address] [place] [phone] Jun, [facility] [address] [id number] [address] [place] [phone] Jun, [facility] [address] [facility] [id number] [place] [id number] Jun, [facility] [address] [facility] [id number] [place] [id number] Apr, [facility] [address] [facility] [id number] [place] [id number] Apr, [facility] [address] [facility] [id number] [place] [id number] Feb, [facility] [address] [facility] [id number] [place] [phone] January, [facility] [address] [facility] [id number] [place] [id number] Dec, IMMUNIZATIONS No Known Immunizations SOCIAL HISTORY Never Assessed REASON FOR VISIT PLAN OF CARE VITAL SIGNS MEDICATIONS Unknown Medications RESULTS No Results PROCEDURES Procedure Date Ordered Result Body Site PSYTX PT&/FAMILY 45 MINUTES Apr 25, 2013 INSTRUCTIONS MEDICATIONS ADMINISTERED No Known Medications MEDICAL (GENERAL) HISTORY Type Description Date Medical History type II diabetes Medical History coronary artery disease stress test Medical History chronic obstructive pulmonary disease (C OPD) Medical History gastroesophageal reflux disease (GERD) Medical History acute renal failure Medical History erectile dysfunction Medical History hyperlipidemia Medical History obesity Medical History skin cancer-basal cell R [employer] (removed ) Medical History Arthritis Medical History [...] colonoscopy 2009 ([facility] 2013 ([facility] ) Surgical History heart cath: [...] inability to urinate 09/16/15 Hospitalization History [facility] inpatient mental health ea rly 1999's Hospitalization History hyperkalemia 10/2017 Hospitalization History fluid in lung
--- OUTSIDE RECORDS SUMMARY | 2020-03-01 17:46 | XMS REPORT ---
Author Author Michele WASHBURN Organization [facility] Address [address] [place] [address] Care Team Providers Care Retail Branch Manager Name Role Phone NOEMI WASHBURN Unavailable PROBLEMS Type Condition ICD9-CM Code RBH22-RK Code Onset Dates Condition S tatus SNOMED Code Problem Leukocytosis D72.829 Active 7087254 06 Problem Bipolar I disorder, most recent episode (or curr ent) mixed, moderate F31.62 Active 09088912 Problem Reactive airway disease J45.909 Active 499088809430 Problem Anxiety F41.9 Active 08475252 Problem Insomnia, unspecified type G47.00 Act sharon 095807433 Problem Essential hypertension I10 Active 82377755 Problem Morbid obesity E66.01 Active 71925 6002 Problem Skin cancer C44.90 Active 20209749 7 Problem DM neuro manif type II E11.49 Active 94688362 Problem Mild cognitive impairment G31.84 Acti ve 252890338 Problem Benign prostatic hyperplasia with lower urinary tract symptoms, unspecified morphology N40.1 Active 31961 6007 Problem Chronic pain G89.29 Active 6460922 1 Problem Diabetes E11.9 Active 10954860 Problem Retinal edema H35.81 Active 825656 6 Problem Anemia of chronic illness D63.8 Acti ve 952286288 Problem Falling R29.6 Active 008504152 Problem Pressure ulcer of other site, stage 3 L89.893 Active 635985476 Problem 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 Active 876035230 Problem Eye exam abnormal R93.8 Active 16 0923726 Problem Pure hypercholesterolemia E78.00 Acti ve 589988147 Problem Dysuria R30.0 Active 72309056 Problem Bipolar disorder, in partial remission, most rec ent episode depressed F31.75 Active 32309810 Problem Hypokalemia E87.6 Active 01570058 Problem Other iron deficiency anemia D50.8 A ctive 18889134 Problem Eustachian tube dysfunction, unspecified laterality H69.80 Active 39890551 Problem Primary osteoarthritis of right knee M17.11 Active [id number] Problem Cough R05 Active 10311952 Problem Bipolar disorder F31.9 Active 137 68855 Problem Chronic diastolic (congestive) heart failure I50.3 2 Active 303627312 Problem Psychophysiological insomnia F51.04 A ctive 203860946 Problem Gastroesophageal reflux disease without esophagitis K21.9 Active 084507615 Problem Polyneuropathy associated with underlying disease G63 Active 519329288 Problem Other secondary acute gout, 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 0 Active 330116060 Problem Diabetic polyneuropathy associated with type 2 d iabetes mellitus E11.42 Active 75461310 Problem Chronic lymphocytic leukemia C91.10 A ctive 08964944 Problem Bilateral primary osteoarthritis of knee M17.0 Active 527026109 Problem Type 2 diabetes mellitus with diabetic neuropathy, uns pecified E11.40 Active 37771577 Problem FDC (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 Z79.4 Active 795865697 Problem Lymphocytosis D72.820 Active 090329 09 Problem Mood disorder F39 Active 350761 05 Problem Bipolar I disorder, most recent episode depressed, moderat e F31.32 Active 701197141 ALLERGIES No Information ENCOUNTERS Encounter Location Date Diagnosis [place] [address] [place] [id number] [place] [address] January, Chronic pain G89.29 [place] [address] [facility] [id number] [address] [place] [address] Dec, [facility] [address] [facility] [id number] [address] [place] [address] Dec, Chronic pain G89.29 [facility] [address] [facility] [id number] [address] [place] [address] Dec, [facility] [address] [place] [id number] [address] [place] [address] Dec, [facility] [address] [facility] [id number] [address] [place] [address] Dec, Gastroesophageal reflux dise ase without esophagitis K21.9 and Pure hypercholesterolemia E78.00 [facility] [address] [facility] [id number] [address] [place] [address] Dec, Mood disorder F39 [facility] [address] [facility] [id number] [address] [place] [address] Nov, Other secondary acute gout, 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 [facility] [address] [facility] [id number] [address] [place] [address] Nov, Gastroesophageal reflux dise ase without esophagitis K21.9 [facility] [address] [facility] [id number] [address] [place] [address] Nov, Chronic pain G89.29 [place] [address] [facility] [id number] [address] [place] [address] Nov, Bipolar I disorder, most rec ent episode depressed, moderate F31.32 ; Anxiety F41.9 and Mild cognitive impairment G31.84 [place] [address] [facility] [id number] [address] [place] [address] Nov, [facility] [address] [facility] [id number] [address] [place] [address] Nov, Syncope, unspecified syncope type R55 [place] [address] [facility] [id number] [address] [place] [address] Nov, Mood disorder F39 [facility] [address] [facility] [id number] [address] [place] [address] Oct, Chronic pain G89.29 [facility] [address] [facility] [id number] [address] [place] [address] Oct, [facility] [address] [facility] [id number] [address] [place] [address] Oct, Mood disorder F39 [facility] [address] [facility] [id number] [address] [place] [address] Oct, [facility] [address] [facility] [id number] [address] [place] [address] Oct, Bipolar disorder, in partial remission, most recent episode depressed F31.75 and Mild cognitive impairment G31.84 [facility] [address] [id number] [address] [place] [address] 04 Oct, 2019 Mood disorder F39 [facility] [address] [id number] [address] [place] [address] Sep, [facility] [address] [id number] [address] [place] [address] Sep, Mood disorder F39 [facility] [address] [id number] [address] [place] [address] Sep, Bipolar disorder, in partial remission, most recent episode depressed F31.75 and Mild cognitive impairment G31.84 [facility] [address] [id number] [address] [place] [address] Sep, Mood disorder F39 [facility] [address] [id number] [address] [place] [address] Sep, [facility] [address] [id number] [address] [place] [id number] Sep, Mood disorder F39 [facility] [address] [id number] [address] [place] [address] Sep, [facility] [address] [id number] [address] [place] [address] Aug, Mood disorder F39 [facility] [address] [id number] [address] [place] [id number] Aug, [facility] [address] [id number] [address] [place] [address] Aug, [facility] [address] [id number] [address] [place] [address] Aug, [facility] [address] [id number] [address] [place] [address] Aug, [facility] [address] [id number] [address] [place] [address] Aug, [facility] [address] [id number] [address] [place] [address] Aug, [facility] [address] [id number] [address] [place] [id number] Aug, [facility] [address] [id number] [address] [place] [address] Aug, Essential hypertension I10 [facility] [address] [id number] [address] [place] [address] Aug, Bipolar disorder, in partial remission, most recent episode depressed F31.75 and Mild cognitive impairment G31.84 [facility] [address] [id number] [address] [place] [address] Aug, Mood disorder F39 [facility] [address] [id number] [address] [place] [id number] Aug, [facility] [address] [id number] [address] [place] [address] Aug, Bipolar disorder, in partial remission, most recent episode depressed F31.75 and Mild cognitive impairment G31.84 [facility] [address] [id number] [address] [place] [address] Jul, Bipolar disorder, in partial remission, most recent episode depressed F31.75 and Mild cognitive impairment G31.84 [facility] [address] [id number] [address] [place] [address] Jul, Psychophysiological insomnia F51.04 [facility] [address] [id number] [address] [place] [address] Jul, [facility] [address] [id number] [address] [place] [address] Jul, [facility] [address] [id number] [address] [place] [address] Jul, [facility] [address] [id number] [address] [place] [address] Jul, [facility] [address] [id number] [address] [place] [address] Jul, [facility] [address] [facility] [id number] [address] [place] [address] Jul, [facility] [address] [facility] [id number] [address] [place] [address] Jul, Bipolar disorder, in partial remission, most recent episode depressed F31.75 and Mild cognitive impairment G31.84 [facility] [address] [facility] [id number] [address] [place] [address] Jul, Chronic pain G89.29 ; Diabet es E11.9 ; Essential hypertension I10 ; Ill feeling R68.89 ; Local infection of the skin and subcutaneous tissue, unspecified L08.9 and Other injury of unspecified body region, initial encounter T14.8XXA [place] [address] [facility] [id number] [address] [place] [address] Jun, Bipolar disorder, in partial remission, most recent episode depressed F31.75 and Mild cognitive impairment G31.84 [place] [address] [facility] [id number] [address] [place] [address] Jun, [place] [address] [facility] [id number] [address] [place] [address] Jun, Bipolar disorder, in partial remission, most recent episode depressed F31.75 and Mild cognitive impairment G31.84 [place] [address] [facility] [id number] [address] [place] [address] Jun, Psychophysiological insomnia F51.04 [place] [address] 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 ; Polyneuropathy associated with underlying disease G63 ; Type 2 diabetes mellitus with diabetic neuropathy, unspecified E11.40 ; FDC (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 Z79.4 and Hyperglycemia R73.9 [place] [address] [place] [id number] [address] [place] [address] Jun, Bipolar disorder, in partial remission, most recent episode depressed F31.75 and Mild cognitive impairment G31.84 [place] [id number] [place] [address] Jun, [place] [address] [place] [id number] [address] [place] [address] Jun, Bipolar disorder F31.9 [place] [address] [place] [id number] [place] [address] May, Bipolar disorder, in partial remission, most recent episode depressed F31.75 and Mild cognitive impairment G31.84 [place] [id number] [place] [address] May, [place] [address] [place] [id number] [address] [place] [address] Apr, Chronic pain G89.29 and Bipo lar disorder F31.9 [place] [address] [place] [id number] [address] [place] [address] Mar, Bipolar disorder F31.9 and C hronic pain G89.29 [place] [address] [place] [id number] [address] [place] [address] Feb, Bipolar disorder F31.9 [place] [address] [place] [id number] [address] [place] [address] Feb, Cellulitis of right upper ex tremity L03.113 and Skin abrasion T14.8XXA [place] [address] [place] [id number] [address] [place] [address] Feb, Bipolar disorder, in partial remission, most recent episode depressed F31.75 and Mild cognitive impairment G31.84 [place] [address] [place] [id number] [address] [place] [id number] Feb, Chronic pain G89.29 [facility] [address] [id number] [address] [place] [address] Feb, Bipolar disorder, in partial remission, most recent episode depressed F31.75 and Mild cognitive impairment G31.84 [facility] [address] [id number] [address] [place] [address] January, Bipolar disorder, in partial remission, most recent episode depressed F31.75 and Mild cognitive impairment G31.84 [facility] [address] [id number] [address] [place] [address] January, Chronic pain G89.29 and Bipo lar disorder F31.9 [facility] [address] [id number] [address] [place] [address] January, Bipolar disorder, in partial remission, most recent episode depressed F31.75 and Mild cognitive impairment G31.84 [facility] [address] [id number] [address] [place] [address] Dec, [facility] [address] [id number] [address] [place] [address] Dec, Chronic pain G89.29 and Bipo lar disorder F31.9 [facility] [address] [id number] [address] [place] [address] Dec, Edema of both lower extremit ies R60.0 [facility] [address] [id number] [address] [place] [address] Dec, Bipolar disorder F31.9 [facility] [address] [id number] [address] [place] [address] Dec, Bipolar disorder, in partial remission, most recent episode depressed F31.75 and Mild cognitive impairment G31.84 [facility] [address] [id number] [address] [place] [address] Nov, [facility] [address] [id number] [address] [place] [address] Nov, Chronic pain G89.29 [place] [address] [facility] [id number] [address] [place] [address] Nov, Bipolar disorder, in partial remission, most recent episode depressed F31.75 and Mild cognitive impairment G31.84 [place] [address] [place] [id number] [address] [place] [address] Nov, Bipolar disorder F31.9 [place] [address] [place] [id number] [address] [place] [address] 04 Nov, 2018 Encounter for Medicare annua [...] unspecified morphology N40.1 and Essential hypertension I10 [place] [address] [place] [id number] [address] [place] [address] Oct, Chronic pain G89.29 [place] [address] [facility] [id number] [address] [place] [address] Oct, Diabetes E11.9 [place] [address] [place] [id number] [address] [place] [address] Oct, Bipolar I disorder, most rec ent episode (or current) mixed, moderate F31.62 and Mild cognitive impairment G31.84 [place] [address] [place] [id number] [address] [place] [address] Oct, Bipolar I disorder, most rec ent episode (or current) mixed, moderate F31.62 and Mild cognitive impairment G31.84 [place] [address] [place] [id number] [address] [place] [address] Sep, Bipolar I disorder, most rec ent episode (or current) mixed, moderate F31.62 and Mild cognitive impairment G31.84 [facility] [address] [id number] [address] [place] [address] Sep, [facility] [address] [facility] [id number] [address] [place] [address] Sep, Diabetes E11.9 ; Hypoxia R09 .02 ; Hyperglycemia R73.9 ; Therapeutic drug monitoring Z51.81 ; BMI 50.0-59.9, adult Z68.43 and Skin cancer C44.90 [facility] [address] [id number] [address] [place] [address] Sep, Chronic pain G89.29 [facility] [address] [facility] [id number] [address] [place] [address] Sep, Bipolar I disorder, most rec ent episode (or current) mixed, moderate F31.62 [facility] [address] [facility] [id number] [address] [place] [address] Sep, [facility] [address] [facility] [id number] [address] [place] [address] Sep, [facility] [address] [facility] [id number] [address] [place] [address] Aug, Chronic pain G89.29 [facility] [address] [facility] [id number] [address] [place] [address] Aug, Bipolar I disorder, most rec ent episode (or current) mixed, moderate F31.62 [facility] [address] [id number] [address] [place] [address] Aug, Bipolar I disorder, most rec ent episode (or current) mixed, moderate F31.62 and Mild cognitive impairment G31.84 [facility] [address] [id number] [address] [place] [address] Jul, [facility] [address] [facility] [id number] [address] [place] [address] Jul, Chronic pain G89.29 [facility] [place] [facility] [address] [id number] [address] [place] [address] Jul, Bipolar I disorder, most rec ent episode (or current) mixed, moderate F31.62 and Mild cognitive impairment G31.84 [facility] [address] [id number] [address] [place] [address] Jul, Bipolar I disorder, most rec ent episode (or current) mixed, moderate F31.62 and MCI (mild cognitive impairment) G31.84 [facility] [address] [id number] [address] [place] [address] Jul, [facility] [address] [id number] [address] [place] [address] Jul, [facility] [address] [id number] [address] [place] [address] Jul, Bipolar I disorder, most rec ent episode (or current) mixed, moderate F31.62 [facility] [address] [id number] [address] [place] [address] Jul, Chronic pain G89.29 [facility] [address] [id number] [address] [place] [address] Jun, Bipolar I disorder, most rec ent episode (or current) mixed, moderate F31.62 [facility] [address] [id number] [address] [place] [address] Jun, Pre-procedure lab exam Z01.8 12 [facility] [address] [id number] [address] [place] [address] Jun, [facility] [address] [id number] [place] [id number] Jun, [facility] [address] [id number] [address] [place] [address] Jun, [facility] [address] [id number] [address] [place] [address] Jun, Forgetfulness R68.89 ; Pre-s yncope R55 ; Localized edema R60.0 ; Other iron deficiency anemia D50.8 and BMI 50.0-59.9, adult Z68.43 [place] [address] [address] Jun, Chronic pain G89.29 [place] [address] [address] Jun, Chronic pain G89.29 [place] [address] [address] Jun, Bipolar I disorder, most rec ent episode (or current) mixed, moderate F31.62 [place] [address] [address] May, Chronic pain G89.29 [place] [address] [address] Apr, [place] [address] [address] Apr, Chronic pain G89.29 [place] [address] [address] Apr, Primary osteoarthritis of ri ght knee M17.11 [place] [address] [address] Mar, [place] [address] [address] Mar, BMI 50.0-59.9, adult Z68.43 and Bipolar disorder, in partial remission, most recent episode depressed F31.75 [place] [address] [address] Mar, Diabetes E11.9 ; Pure hyperc holesterolemia E78.00 ; Essential hypertension I10 ; Nausea with vomiting, unspecified R11.2 and Headache, unspecified headache type R51 [place] [address] [place] [address] Mar, Bipolar I disorder, most rec ent episode (or current) mixed, moderate F31.62 [facility] [address] [facility] [id number] [address] [place] [id number] Mar, Bipolar I disorder, most rec ent episode (or current) mixed, moderate F31.62 [facility] [address] [facility] [id number] [address] [place] [address] Mar, Chronic pain G89.29 [facility] [address] [facility] [id number] [address] [place] [address] Mar, Bipolar I disorder, most rec ent episode (or current) mixed, moderate F31.62 [facility] [address] [facility] [id number] [address] [place] [id number] Feb, Bipolar I disorder, most rec ent episode (or current) mixed, moderate F31.62 [facility] [address] [facility] [id number] [address] [place] [phone] Feb, Chronic pain G89.29 [facility] [address] [facility] [id number] [address] [place] [id number] Feb, Decubitus ulcer of right josselin t, stage 3 L89.893 and BMI 50.0-59.9, adult Z68.43 [facility] [address] [facility] [id number] [address] [place] [id number] Feb, Bipolar I disorder, most rec ent episode (or current) mixed, moderate F31.62 [facility] [address] [facility] [id number] [address] [place] [phone] Feb, [facility] [address] [facility] [id number] [address] [place] [phone] January, [facility] [address] [facility] [id number] [address] [place] [phone] January, Chronic pain G89.29 [facility] [address] [facility] [id number] [address] [place] [id number] January, Bipolar I disorder, most rec ent episode (or current) mixed, moderate F31.62 [place] [address] [place] [id number] [place] [address] January, Bipolar I disorder, most rec ent episode (or current) mixed, moderate F31.62 [place] [address] [address] Dec, Bipolar I disorder, most rec ent episode (or current) mixed, moderate F31.62 and BMI 50.0-59.9, adult Z68.43 [place] [address] [address] Dec, Bipolar I disorder, most rec ent episode (or current) mixed, moderate F31.62 [place] [address] [address] Dec, Chronic pain G89.29 [place] [address] [address] Dec, DM neuro manif type II E11.4 9 ; Right flank pain R10.9 ; FDC 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 Z79.891 ; Encounter for medication monitoring Z51.81 and BMI 50.0-59.9, adult Z68.43 [place] [address] [address] Dec, Bipolar I disorder, most rec ent episode (or current) mixed, moderate F31.62 [place] [address] [place] [id number] [place] [address] Nov, Bipolar I disorder, most rec ent episode (or current) mixed, moderate F31.62 [place] [address] [place] [id number] [address] [place] [address] Nov, Chronic pain G89.29 [place] [address] [place] [id number] [place] [address] Nov, Bipolar I disorder, most rec ent episode (or current) mixed, moderate F31.62 [facility] [address] [facility] [id number] [address] [place] [address] Nov, Hypokalemia E87.6 [facility] [address] [place] [id number] [address] [place] [address] Nov, Bipolar I disorder, most rec ent episode (or current) mixed, moderate F31.62 [facility] [address] [place] [id number] [address] [place] [address] Oct, Chronic pain G89.29 [facility] [address] [place] [id number] [place] [address] Oct, BMI 50.0-59.9, adult Z68.43 and Bipolar I disorder, most recent episode (or current) mixed, moderate F31.62 [place] [address] [place] [id number] [place] [address] Oct, Bipolar I disorder, most rec ent episode (or current) mixed, moderate F31.62 [facility] [address] [place] [id number] [address] [place] [address] Oct, [facility] [address] [place] [id number] [place] [address] Oct, Hypokalemia E87.6 [facility] [address] [place] [id number] [address] [place] [address] Oct, DM neuro manif type II E11.4 9 [facility] [address] [facility] [id number] [address] [place] [address] Oct, Bipolar I disorder, most rec ent episode (or current) mixed, moderate F31.62 [facility] [address] [place] [id number] [address] [place] [address] Oct, Bipolar I disorder, most rec ent episode (or current) mixed, moderate F31.62 [facility] [address] [address] 14 Oct, 2017 Hyperkalemia E87.5 ; Falling R29.6 ; BMI 50.0-59.9, adult Z68.43 and Acute left ankle pain M25.572 [place] [address] [address] 08 Oct, 2017 DM neuro manif type II E11.4 9 [place] [address] [address] 01 Oct, 2017 [place] [address] [address] Sep, Chronic pain G89.29 [place] [address] [address] Sep, [place] [address] [address] Sep, Bilateral primary osteoarthr itis of knee M17.0 [place] [address] [address] Sep, Generalized edema R60.[address] [address] 16 Sep, 2017 Bipolar I disorder, most rec ent episode (or current) mixed, moderate F31.[address] [address] 15 Sep, 2017 Hypoxia R09.02 ; Other hyper volemia E87.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 [id number] [address] [place] [address] Aug, Chronic pain G89.29 [facility] [address] [facility] [id number] [address] [place] [address] Aug, Generalized edema R60.1 [facility] [address] [facility] [id number] [address] [place] [address] Aug, [facility] [address] [place] [id number] [address] [place] [address] Aug, [facility] [address] [place] [id number] [address] [place] [address] Aug, Bipolar I disorder, most rec ent episode (or current) mixed, moderate F31.62 [place] [address] [place] [id number] [address] [place] [address] Aug, Bipolar I disorder, most rec ent episode (or current) mixed, moderate F31.62 [place] [address] [facility] [id number] [address] [place] [address] Aug, Chronic pain G89.29 [facility] [address] [facility] [id number] [address] [place] [address] Jul, Bipolar I disorder, most rec ent episode (or current) mixed, moderate F31.62 [facility] [address] [facility] [id number] [address] [place] [address] Jul, Bipolar I disorder, most rec ent episode (or current) mixed, moderate F31.62 and BMI 60.0-69.9, adult Z68.44 [place] [address] [facility] [id number] [address] [place] [id number] 16 Jul, 2017 Bipolar I disorder, most rec ent episode (or current) mixed, moderate F31.62 [place] [address] [place] [id number] [address] [place] [address] Jul, Chronic pain G89.29 [facility] [address] [id number] [address] [place] [address] Jul, Bipolar I disorder, most rec ent episode (or current) mixed, moderate F31.62 [facility] [address] [id number] [address] [place] [address] Jun, Polyneuropathy associated wi th underlying disease G63 and Diabetes E11.9 [facility] [address] [id number] [address] [place] [id number] Jun, Bipolar I disorder, most rec ent episode (or current) mixed, moderate F31.62 [facility] [address] [id number] [address] [place] [address] Jun, Chronic pain G89.29 [facility] [address] [facility] [id number] [address] [place] [address] May, Bipolar I disorder, most rec ent episode (or current) mixed, moderate F31.62 [facility] [address] [id number] [address] [place] [address] May, Bipolar I disorder, most rec ent episode (or current) mixed, moderate F31.62 [facility] [address] [facility] [id number] [address] [place] [id number] May, Diabetic polyneuropathy asso ciated with type 2 diabetes mellitus E11.42 [facility] [address] [id number] [address] [place] [id number] 18 May, 2017 Bipolar I disorder, most rec ent episode (or current) mixed, moderate F31.62 [facility] [address] [id number] [address] [place] [id number] 13 May, 2017 Bipolar I disorder, most rec ent episode (or current) mixed, moderate F31.62 [facility] [address] [facility] [id number] [address] [place] [address] 12 May, 2017 Chronic pain G89.29 [facility] [address] [id number] [address] [place] [address] Apr, Bipolar I disorder, most rec ent episode (or current) mixed, moderate F31.62 [facility] [address] [id number] [address] [place] [id number] Apr, [facility] [address] [facility] [id number] [address] [place] [address] Apr, Chronic pain G89.29 and DM n euro manif type II E11.49 [facility] [address] [id number] [address] [place] [id number] Apr, [facility] [address] [facility] [id number] [address] [place] [id number] Apr, Bipolar I disorder, most rec ent episode (or current) mixed, moderate F31.62 [facility] [address] [facility] [id number] [address] [place] [address] Apr, Chronic pain G89.29 [facility] [address] [facility] [id number] [address] [place] [id number] Apr, Iliotibial band syndrome, le ft M76.32 [facility] [address] [facility] [id number] [address] [place] [id number] Apr, Bipolar I disorder, most rec ent episode (or current) mixed, moderate F31.62 [facility] [address] [facility] [id number] [address] [place] [address] Mar, Bipolar I disorder, most rec ent episode (or current) mixed, moderate F31.62 [facility] [address] [facility] [id number] [address] [place] [address] Mar, Bipolar I disorder, most rec ent episode (or current) mixed, moderate F31.62 [facility] [address] [facility] [id number] [address] [place] [phone] Mar, [facility] [address] [facility] [id number] [address] [place] [address] Mar, Bipolar I disorder, most rec ent episode (or current) mixed, moderate F31.62 [facility] [address] [facility] [id number] [address] [place] [address] Mar, Chronic pain G89.29 [facility] [address] [facility] [id number] [address] [place] [id number] Mar, Bipolar I disorder, most rec ent episode (or current) mixed, moderate F31.62 [facility] [address] [facility] [id number] [address] [place] [id number] Mar, Bipolar I disorder, most rec ent episode (or current) mixed, moderate F31.62 [place] [address] [facility] [id number] [address] [place] [address] Mar, Acute pain of left knee M25. 562 ; Left hip pain M25.552 ; Generalized edema R60.1 and Tongue swelling R22.0 [place] [id number] [facility] [id number] [address] [place] [phone] Mar, [facility] [address] [facility] [id number] [address] [place] [id number] Feb, Chronic pain G89.29 [facility] [address] [facility] [id number] [address] [place] [address] Feb, Diabetes E11.9 [facility] [address] [facility] [id number] [address] [place] [address] January, Chronic pain G89.29 [facility] [address] [facility] [id number] [address] [place] [id number] January, [facility] [address] [facility] [id number] [address] [place] [address] January, Bipolar I disorder, most rec ent episode (or current) mixed, moderate F31.62 [facility] [address] [facility] [id number] [address] [place] [address] Dec, Bipolar I disorder, most rec ent episode (or current) mixed, moderate F31.62 [facility] [address] [id number] [address] [place] [id number] Dec, Chronic pain G89.29 [facility] [address] [facility] [id number] [address] [place] [id number] Dec, Bipolar I disorder, most rec ent episode (or current) mixed, moderate F31.62 [facility] [address] [facility] [id number] [address] [place] [id number] Dec, Diabetes E11.9 ; Essential h ypertension I10 ; Chronic pain G89.29 and Morbid obesity E66.01 [facility] [address] [id number] [address] [place] [id number] Dec, [facility] [address] [facility] [id number] [address] [place] [id number] Dec, Bipolar I disorder, most rec ent episode (or current) mixed, moderate F31.62 [facility] [address] [facility] [id number] [address] [place] [address] Dec, Bipolar I disorder, most rec ent episode (or current) mixed, moderate F31.62 [facility] [address] [facility] [id number] [address] [place] [address] Nov, Chronic pain G89.29 [facility] [address] [id number] [address] [place] [id number] Nov, Bipolar I disorder, most rec ent episode (or current) mixed, moderate F31.62 [facility] [address] [id number] [address] [place] [id number] Nov, [facility] [address] [facility] [id number] [address] [place] [id number] Nov, Bipolar I disorder, most rec ent episode (or current) mixed, moderate F31.62 [facility] [address] [facility] [id number] [address] [place] [address] Nov, Bipolar I disorder, most rec ent episode (or current) mixed, moderate F31.62 [facility] [address] [facility] [id number] [address] [place] [address] Nov, [facility] [address] [facility] [id number] [address] [place] [id number] Nov, [facility] [address] [facility] [id number] [address] [place] [address] Nov, [facility] [address] [facility] [id number] [address] [place] [address] Oct, Chronic pain G89.29 [facility] [address] 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 [id number] [address] [place] [address] Oct, Bipolar I disorder, most rec ent episode (or current) mixed, moderate F31.62 [facility] [address] [facility] [id number] [address] [place] [address] Sep, Chronic pain G89.29 [facility] [address] [place] [id number] [address] [place] [id number] Sep, Chronic pain G89.29 [facility] [address] [place] [id number] [address] [place] [address] Aug, Chronic pain G89.29 [facility] [address] [facility] [id number] [address] [place] [id number] Jul, [facility] [address] [facility] [id number] [address] [place] [address] Jul, Diabetes E11.9 [facility] [address] [facility] [id number] [address] [place] [id number] Jul, Chronic pain G89.29 [facility] [address] [id number] [address] [place] [id number] Jul, Bipolar I disorder, most rec ent episode (or current) mixed, moderate F31.62 [place] [address] [facility] [id number] [address] [place] [id number] Jun, Bipolar I disorder, most rec ent episode (or current) mixed, moderate F31.62 [place] [address] [facility] [id number] [address] [place] [id number] Jun, [facility] [address] [facility] [id number] [address] [place] [id number] Jun, Bipolar I disorder, most rec ent episode (or current) mixed, moderate F31.62 [place] [address] [facility] [id number] [address] [place] [address] 30 May, 2016 Insomnia, unspecified type G 47.00 [facility] [address] [facility] [id number] [address] [place] [id number] May, Bipolar I disorder, most rec ent episode (or current) mixed, moderate F31.62 [facility] [address] [facility] [id number] [address] [place] [id number] 14 May, 2016 [facility] [address] [facility] [id number] [address] [place] [id number] 08 May, 2016 Bipolar I disorder, most rec ent episode (or current) mixed, moderate F31.62 [place] [address] [facility] [id number] [address] [place] [id number] May, Diabetes E11.9 and Essential hypertension I10 [place] [address] [facility] [id number] [address] [place] [id number] Apr, Chronic pain G89.29 [place] [address] [facility] [id number] [address] [place] [id number] Apr, Bipolar I disorder, most rec ent episode (or current) mixed, moderate F31.62 [place] [address] [facility] [id number] [address] [place] [id number] Apr, [place] [address] [facility] [id number] [address] [place] [address] Apr, [place] [address] [place] [id number] [address] [place] [address] Mar, Chronic pain G89.29 ; Headac he, unspecified headache type R51 ; Neuropathy G62.9 ; Pain of right hip joint M25.551 and Essential hypertension I10 [place] [address] [facility] [id number] [address] [place] [address] Mar, Chronic pain G89.29 [place] [address] [facility] [id number] [address] [place] [id number] Mar, Bipolar I disorder, most rec ent episode (or current) mixed, moderate F31.62 [place] [address] [facility] [id number] [address] [place] [address] Feb, Bipolar I disorder, most rec ent episode (or current) mixed, moderate F31.62 and Insomnia, unspecified type G47.00 [place] [address] [facility] [id number] [address] [place] [address] Feb, Chronic pain G89.29 [place] [address] [facility] [id number] [address] [place] [id number] Feb, Bipolar I disorder, most rec ent episode (or current) mixed, moderate F31.62 [facility] [address] [id number] [address] [place] [id number] January, Bipolar I disorder, most rec ent episode (or current) mixed, moderate F31.62 [facility] [address] [id number] [address] [place] [phone] January, Chronic pain G89.29 [facility] [address] [id number] [address] [place] [id number] January, Chronic pain G89.29 and Esse ntial hypertension I10 [facility] [address] [id number] [address] [place] [address] January, Bipolar I disorder, most rec ent episode (or current) mixed, moderate F31.62 [facility] [address] [id number] [address] [place] [id number] Dec, [facility] [address] [id number] [address] [place] [phone] Dec, [facility] [address] [id number] [address] [place] [id number] Dec, [facility] [address] [id number] [address] [place] [id number] Dec, [facility] [address] [facility] [id number] [address] [place] [phone] Nov, Reactive airway disease J45. 909 [facility] [address] [id number] [address] [place] [id number] Nov, [facility] [address] [id number] [address] [place] [id number] Nov, [facility] [address] [id number] [address] [place] [id number] Nov, [facility] [address] [id number] [address] [place] [id number] Nov, [facility] [address] [id number] [address] [place] [phone] Nov, Onychomycosis B35.1 ; Hammer toe M20.40 ; [place] or callus L84 and DM neuro manif type II E11.49 [place] [address] [address] Nov, Chronic pain G89.29 ; Leukoc ytosis D72.829 and Diabetes E11.9 [place] [address] [id number] Nov, [place] [address] [address] Oct, Bronchitis J40 [place] [address] [phone] Oct, [place] [address] [id number] Oct, [place] [address] [address] Oct, Mastoiditis, unspecified lat erality H70.90 and Type 2 diabetes mellitus with complication E11.8 [place] [address] [id number] Sep, [place] [address] [address] Sep, Dysuria R30.0 ; Cough R05 ; Benign prostatic hyperplasia with lower urinary tract symptoms, unspecified morphology N40.1 ; Hypokalemia E87.6 and Eustachian tube dysfunction, unspecified laterality H69.[address] [address] Sep, Moderate mixed bipolar I dis order F31.62 [place] [address] [address] Sep, Hypokalemia E87.6 [place] [address] [place] [address] Sep, [facility] [address] [id number] [address] [place] [id number] Sep, Upper respiratory tract infe ction, unspecified type J06.9 [facility] [address] [id number] [address] [place] [phone] Aug, [facility] [address] [id number] [address] [place] [id number] Aug, Dysuria R30.0 [facility] [address] [id number] [address] [place] [id number] Aug, [facility] [address] [id number] [address] [place] [id number] Jul, [facility] [address] [id number] [address] [place] [id number] Jul, [facility] [address] [id number] [address] [place] [id number] Jul, [facility] [address] [id number] [address] [place] [phone] Jul, [facility] [address] [facility] [id number] [address] [place] [id number] Jun, [facility] [address] [id number] [address] [place] [id number] Jun, [facility] [address] [id number] [address] [place] [phone] Jun, [facility] [address] [id number] [address] [place] [phone] May, [facility] [address] [facility] [id number] [address] [place] [id number] May, Bipolar I disorder, most rec ent episode (or current) mixed, moderate 296.62 [facility] [address] [id number] [address] [place] [id number] May, [facility] [address] [facility] [id number] [address] [place] [id number] May, Bipolar I disorder, most rec ent episode (or current) mixed, moderate 296.62 and Major depressive disorder, recurrent episode, severe, specified as with psychotic behavior 296.34 [facility] [address] [id number] [address] [place] [id number] May, Bipolar I disorder, most rec ent episode (or current) mixed, moderate 296.62 [facility] [address] [id number] [address] [place] [id number] May, [facility] [address] [facility] [id number] [address] [place] [phone] Apr, [facility] [address] [facility] [id number] [address] [place] [phone] Apr, [facility] [address] [facility] [id number] [address] [place] [id number] Apr, Unspecified disorder of kidn ey and ureter 593.9 and Diabetes mellitus type 2, uncontrolled 250.02 [facility] [address] [facility] [id number] [address] [place] [id number] Apr, [facility] [address] [facility] [id number] [address] [place] [phone] Apr, [facility] [address] [facility] [id number] [address] [place] [phone] Apr, [facility] [address] [id number] [address] [place] [phone] Apr, [facility] [address] [facility] [id number] [address] [place] [id number] Apr, Diabetes mellitus type II, u ncontrolled 250.02 [facility] [address] [facility] [id number] [address] [place] [id number] Apr, [facility] [address] [facility] [id number] [address] [place] [phone] Mar, [facility] [address] [facility] [id number] [address] [place] [phone] Mar, [facility] [address] [facility] [id number] [address] [place] [phone] Mar, [facility] [address] [facility] [id number] [address] [place] [id number] Mar, Major depressive disorder, r ecurrent episode, severe, specified as with psychotic behavior 296.34 and Bipolar I disorder, most recent episode (or current) mixed, moderate 296.62 [facility] [address] [facility] [id number] [address] [place] [id number] Mar, Diabetes 250.00 ; Anuria 788 .5 ; Nausea and vomiting 787.01 and Diarrhea 787.91 [facility] [address] [facility] [id number] [address] [place] [id number] Mar, Diabetes 250.00 [facility] [address] [facility] [id number] [address] [place] [phone] Mar, [facility] [address] [facility] [id number] [address] [place] [id number] Mar, Diabetes 250.00 [facility] [address] [facility] [id number] [address] [place] [id number] Mar, [facility] [address] [facility] [id number] [address] [place] [phone] Mar, [facility] [address] [facility] [id number] [address] [place] [id number] Mar, [facility] [address] [facility] [id number] [address] [place] [phone] Mar, [facility] [address] [facility] [id number] [address] [place] [id number] Mar, Bipolar I disorder, most rec ent episode (or current) mixed, moderate 296.62 and Major depressive disorder, recurrent episode, severe, specified as with psychotic behavior 296.34 [place] [address] [address] Mar, Magnesium deficiency 275.2 ; Hypokalemia 276.8 ; Nausea & vomiting 787.01 and Diabetes mellitus type 2, uncontrolled 250.02 [place] [address] [address] Feb, [place] [address] [id number] Feb, Bipolar I disorder, most rec ent episode (or current) mixed, moderate 296.[address] [address] Feb, Nausea and vomiting 787.01 ; Left elbow pain 719.42 ; Anuria 788.5 and Diabetes 250.[address] [address] Feb, [place] [address] [address] Feb, Hypopotassemia 276.8 and Hyp okalemia 276.[address] [address] Feb, Hypopotassemia 276.8 and Hyp okalemia 276.[address] [address] Feb, Seborrheic keratoses 702.19 [place] [address] [address] Feb, Hypopotassemia 276.8 and Low magnesium levels 275.[address] [address] January, [place] [address] [address] January, [place] [address] [address] January, [facility] [address] [id number] [address] [place] [address] January, Scalp lesion 709.9 [facility] [address] [id number] [address] [place] [id number] January, [facility] [address] [id number] [address] [place] [address] Dec, Tear of medial cartilage or meniscus of knee, current 836.0 and 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 [facility] [address] [id number] [address] [place] [phone] Dec, [facility] [address] [id number] [address] [place] [id number] Dec, [facility] [address] [id number] [address] [place] [id number] Dec, Squamous cell carcinoma, 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 [facility] [address] [id number] [address] [place] [id number] 14 Dec, 2014 [facility] [address] [id number] [address] [place] [id number] Dec, [facility] [address] [id number] [address] [place] [id number] Nov, [facility] [address] [id number] [address] [place] [id number] Nov, [facility] [address] [id number] [address] [place] [phone] Nov, [facility] [address] [id number] [address] [place] [id number] Nov, [facility] [address] [id number] [address] [place] [id number] Nov, [facility] [address] [id number] [address] [place] [id number] Nov, [facility] [address] [id number] [address] [place] [address], [place] [id number] Nov, 2014 [facility] [address] [id number] [address] [place] [address], [place] [id number] Nov, 2014 [facility] [address] [id number] [address] [place] [address], [place] [id number] Nov, 2014 [facility] [address] [id number] [address] [place] [address], [place] [id number] Nov, 2014 [facility] [address] [id number] [address] [place] [address], [place] [id number] Nov, [facility] [address] [id number] [address] [place] [address], [place] [id number] Nov, 2014 [facility] [address] [id number] [address] [place] [address], [place] [id number] Oct, 2014 [facility] [address] [id number] [address] [place] [address], [place] [id number] Oct, 2014 [facility] [address] [id number] [address] [place] [address], [place] [id number] Oct, 2014 [facility] [address] [id number] [address] [place] [address], [place] [id number] Oct, 2014 [facility] [address] [id number] [address] [place] [address], [place] [id number] Oct, 2014 [facility] [address] [id number] [address] [place] [id number] Oct, 2014 [facility] [address] [id number] [address] [place] [address], [place] [id number] Oct, 2014 [facility] [address] [id number] [address] [place] [address], [place] [id number] Oct, 2014 [facility] [address] [id number] [address] [place] [address], [place] [id number] Oct, 2014 [facility] [address] [id number] [address] [place] [address], [place] [id number] Sep, [facility] [address] [id number] [address] [place] [address], [place] [id number] Sep, [facility] [address] [id number] [address] [place] [address], [place] [id number] Sep, [facility] [address] [id number] [address] [place] [address], [place] [id number] Sep, [facility] [address] [id number] [address] [place] [address], [place] [id number] Sep, [facility] [address] [id number] [address] [place] [address], [place] [id number] Sep, [facility] [address] [id number] [address] [place] [address], [place] [id number] Sep, [facility] [address] [id number] [address] [place] [address], [place] [id number] Sep, [facility] [address] [id number] [address] [place] [address], [place] [id number] Sep, [facility] [address] [id number] [address] [place] [address], [place] [id number] Sep, [facility] [address] [id number] [address] [place] [address], [place] [id number] Sep, [facility] [address] [id number] [address] [place] [address], [place] [id number] Sep, [facility] [address] [id number] [address] [place] [address], [place] [id number] Sep, [facility] [address] [id number] [address] [place] [address], [place] [id number] Sep, [facility] [address] [id number] [address] [place] [address], [place] [id number] Sep, [facility] [address] [id number] [address] [place] [address], [place] [id number] Sep, [facility] [address] [id number] [address] [place] [address], [place] [id number] Aug, [facility] [address] [id number] [address] [place] [address], [place] [id number] Aug, [facility] [address] [id number] [address] [place] [address], [place] [id number] Aug, [facility] [address] [id number] [address] [place] [address], [place] [id number] Aug, [facility] [address] [id number] [address] [place] [address], [place] [id number] Aug, [facility] [address] [id number] [address] [place] [address], [place] [id number] Aug, [facility] [address] [id number] [address] [place] [address], [place] [id number] Aug, [facility] [address] [id number] [address] [place] [address], [place] [id number] Aug, [facility] [address] [id number] [address] [place] [address], [place] [id number] Aug, [facility] [address] [id number] [address] [place] [address], [place] [id number] Aug, [facility] [address] [id number] [address] [place] [address], [place] [id number] Aug, [facility] [address] [place] [id number] Aug, [facility] [address] [id number] [address] [place] [address], [place] [id number] Aug, [facility] [address] [id number] [address] [place] [address], [place] [id number] Aug, [facility] [address] [id number] [address] [place] [address], [place] [id number] Aug, [facility] [address] [id number] [address] [place] [address], [place] [id number] Aug, [facility] [address] [id number] [facility] [place] [id number] Aug, [facility] [address] [id number] [address] [place] [address], [place] [id number] Aug, [facility] [address] [id number] [address] [place] [address], [place] [id number] Aug, [facility] [address] [id number] [address] [place] [address], [place] [id number] Aug, [facility] [address] [id number] [address] [place] [address], [place] [id number] Aug, [facility] [address] [id number] [address] [place] [address], [place] [id number] Aug, [facility] [address] [id number] [address] [place] [address], [place] [id number] Aug, [facility] [address] [id number] [address] [place] [address], [place] [id number] Aug, [facility] [address] [id number] [address] [place] [address], [place] [address] Aug, [facility] [address] [id number] [address] [place] [address], [place] [id number] Aug, [facility] [address] [id number] [address] [place] [address], [place] [id number] Aug, [facility] [address] [id number] [address] [place] [address], [place] [id number] Aug, [facility] [address] [id number] [address] [place] [address], [place] [id number] Aug, [facility] [address] [id number] [address] [place] [address], [place] [address] Aug, [facility] [address] [id number] [address] [place] [address], [place] [id number] Jul, [facility] [address] [id number] [address] [place] [address], [place] [address] Jul, [facility] [address] [id number] [address] [place] [address], [place] [id number] Jul, [facility] [address] [id number] [address] [place] [address], [place] [id number] Jul, [facility] [address] [id number] [address] [place] [address], [place] [id number] Jul, [facility] [address] [id number] [address] [place] [address], [place] [address] Jul, [facility] [address] [id number] [address] [place] [address], [place] [address] Jul, [facility] [address] [id number] [address] [place] [address], [place] [id number] Jul, [facility] [address] [id number] [address] [place] [address], [place] [id number] Jul, [facility] [address] [id number] [address] [place] [address], [place] [id number] Jul, [facility] [address] [id number] [address] [place] [address], [place] [id number] Jun, [facility] [address] [id number] [address] [place] [address], [place] [id number] Jun, [facility] [address] [id number] [address] [place] [address], [place] [address] Jun, [facility] [address] [id number] [address] [place] [address], [place] [id number] 16 Jun, 2014 [facility] [address] [id number] [address] [place] [address], [place] [id number] 15 Jun, 2014 [facility] [address] [id number] [address] [place] [address], [place] [id number] Jun, [facility] [address] [id number] [address] [place] [address], [place] [id number] 05 Jun, 2014 [facility] [address] [id number] [address] [place] [address], [place] [id number] Jun, [facility] [address] [id number] [address] [place] [address], [place] [address] Jun, [facility] [address] [id number] [address] [place] [address], [place] [address] Jun, [facility] [address] [id number] [address] [place] [address], [place] [id number] 29 May, 2013 [facility] [address] [id number] [address] [place] [address], [place] [id number] 29 May, 2013 [facility] [address] [id number] [address] [place] [address], [place] [id number] 26 May, 2013 [facility] [address] [id number] [address] [place] [address], [place] [id number] 26 May, 2013 [facility] [address] [id number] [address] [place] [address], [place] [id number] 17 May, 2013 [facility] [address] [id number] [address] [place] [address], [place] [id number] 17 May, 2013 [facility] [address] [id number] [address] [place] [address], [place] [id number] 15 May, 2013 [facility] [address] [id number] [address] [place] [address], [place] [id number] 15 May, 2013 [facility] [address] [id number] [address] [place] [address], [place] [id number] 15 Sep, 2013 [facility] [address] [id number] [address] [place] [address], [place] [id number] 15 May, 2013 [facility] [address] [id number] [address] [place] [address], [place] [id number] 10 May, 2013 [facility] [address] [id number] [address] [place] [address], [place] [id number] 10 May, 2013 [facility] [address] [id number] [address] [place] [address], [place] [id number] May, [facility] [address] [id number] [facility] [place] [id number] May, [facility] [address] [id number] [address] [place] [address], [place] [id number] May, [facility] [address] [id number] [address] [place] [address], [place] [id number] May, [facility] [address] [id number] [address] [place] [address], [place] [id number] Apr, [facility] [address] [id number] [address] [place] [address], [place] [id number] Apr, [facility] [address] [id number] [address] [place] [address], [place] [id number] Apr, [facility] [address] [id number] [address] [place] [address], [place] [id number] Apr, [facility] [address] [id number] [address] [place] [address], [place] [id number] Apr, [facility] [address] [id number] [address] [place] [address], [place] [id number] Apr, [facility] [address] [id number] [address] [place] [address], [place] [id number] Apr, [facility] [address] [id number] [address] [place] [address], [place] [id number] Apr, [facility] [address] [id number] [address] [place] [address], [place] [id number] Apr, [facility] [address] [id number] [address] [place] [address], [place] [id number] Apr, [facility] [address] [id number] [address] [place] [address], [place] [id number] Apr, [facility] [address] [id number] [address] [place] [address], [place] [id number] Apr, [facility] [address] [id number] [facility] [place] [id number] Apr, [facility] [address] [id number] [facility] [place] [id number] Apr, [facility] [address] [id number] [address] [place] [address], [place] [id number] Apr, [facility] [address] [id number] [address] [place] [address], [place] [id number] Mar, [facility] [address] [id number] [address] [place] [address], [place] [id number] Mar, [facility] [address] [id number] [address] [place] [address], [place] [id number] Mar, [facility] [address] [id number] [address] [place] [address], [place] [id number] Mar, [facility] [address] [id number] [address] [place] [address], [place] [id number] Mar, [facility] [address] [id number] [address] [place] [address], [place] [id number] Mar, [facility] [address] [id number] [address] [place] [address], [place] [id number] Mar, [facility] [address] [id number] [address] [place] [address], [place] [id number] Mar, [facility] [address] [id number] [address] [place] [address], [place] [id number] Mar, [facility] [address] [id number] [address] [place] [address], [place] [id number] Mar, [facility] [address] [id number] [address] [place] [address], [place] [id number] Mar, [facility] [address] [id number] [address] [place] [address], [place] [id number] Mar, [facility] [address] [id number] [address] [place] [address], [place] [id number] Mar, [facility] [address] [id number] [facility] [place] [id number] Mar, 2013 [facility] [address] [id number] [facility] [place] [id number] Mar, 2013 [facility] [address] [id number] [facility] [place] [id number] Mar, 2013 [facility] [address] [id number] [address] [place] [address], [place] [address] Mar, 2013 [facility] [address] [id number] [address] [place] [address], [place] [address] Mar, [facility] [address] [id number] [address] [place] [address], [place] [address] Feb, [facility] [address] [id number] [address] [place] [address], [place] [id number] Feb, [facility] [address] [id number] [address] [place] [address], [place] [address] Feb, [facility] [address] [id number] [address] [place] [address], [place] [address] Feb, [facility] [address] [id number] [address] [place] [address], [place] [address] Feb, [facility] [address] [id number] [address] [place] [address], [place] [address] Feb, [facility] [address] [id number] [address] [place] [address], [place] [id number] Feb, [facility] [address] [id number] [address] [place] [address], [place] [address] Feb, [facility] [address] [id number] [address] [place] [address], [place] [address] Feb, [facility] [address] [id number] [address] [place] [address], [place] [address] Feb, [facility] [address] [id number] [address] [place] [address], [place] [address] Feb, [facility] [address] [id number] [facility] [place] [address] Feb, [facility] [address] [id number] [address] [place] [address], [place] [address] Feb, [facility] [address] [id number] [address] [place] [address], [place] [address] Feb, [facility] [address] [id number] [address] [place] [address], [place] [id number] January, [facility] [address] [id number] [address] [place] [address], [place] [address] January, [facility] [address] [id number] [address] [place] [address], [place] [address] January, [facility] [address] [id number] [address] [place] [address], [place] [address] January, [facility] [address] [id number] [address] [place] [address], [place] [id number] January, [facility] [address] [id number] [address] [place] [address], [place] [id number] January, [facility] [address] [id number] [address] [place] [address], [place] [id number] January, [facility] [address] [id number] [address] [place] [address], [place] [address] January, [facility] [address] [id number] [address] [place] [address], [place] [id number] January, [facility] [address] [id number] [address] [place] [address], [place] [address] January, [facility] [address] [id number] [address] [place] [address], [place] [id number] January, [facility] [address] [id number] [address] [place] [address], [place] [phone] January, [facility] [address] [id number] [facility] [place] [address] January, [facility] [address] [id number] [address] [place] [address], [place] [id number] January, [facility] [address] [id number] [address] [place] [address], [place] [address] Dec, [facility] [address] [id number] [address] [place] [address], [place] [address] Dec, [facility] [address] [id number] [address] [place] [address], [place] [address] Dec, [facility] [address] [id number] [address] [place] [address], [place] [id number] Dec, [facility] [address] [id number] [address] [place] [address], [place] [id number] Dec, [facility] [address] [id number] [address] [place] [address], [place] [id number] Dec, [facility] [address] [id number] [address] [place] [address], [place] [id number] Dec, [facility] [address] [id number] [address] [place] [address], [place] [id number] Dec, [facility] [address] [id number] [address] [place] [address], [place] [address] Dec, [facility] [address] [id number] [address] [place] [address], [place] [id number] Dec, [facility] [address] [id number] [address] [place] [address], [place] [id number] Nov, [facility] [address] [id number] [address] [place] [address], [place] [address] Nov, [facility] [address] [id number] [address] [place] [address], [place] [address] Nov, [facility] [address] [id number] [address] [place] [address], [place] [address] Nov, [facility] [address] [id number] [address] [place] [address], [place] [address] Nov, [facility] [address] [id number] [address] [place] [address], [place] [id number] 08 Nov, 2013 [facility] [address] [id number] [address] [place] [address], [place] [address] Nov, [facility] [address] [id number] [address] [place] [address], [place] [address] Nov, [facility] [address] [id number] [address] [place] [address], [place] [address] Nov, [facility] [address] [id number] [address] [place] [address], [place] [address] Nov, [facility] [address] [id number] [address] [place] [address], [place] [id number] Oct, [facility] [address] [id number] [address] [place] [address], [place] [address] Oct, [facility] [address] [id number] [address] [place] [address], [place] [id number] Oct, [facility] [address] [id number] [address] [place] [address], [place] [id number] Oct, [facility] [address] [id number] [address] [place] [address], [place] [address] Oct, [facility] [address] [id number] [address] [place] [address], [place] [id number] Oct, [facility] [address] [id number] [address] [place] [address], [place] [id number] 14 Oct, 2013 [facility] [address] [id number] [address] [place] [address], [place] [id number] 14 Oct, 2013 [facility] [address] [id number] [address] [place] [address], [place] [address] 05 Oct, 2013 [facility] [address] [id number] [address] [place] [address], [place] [address] Oct, [facility] [address] [id number] [address] [place] [address], [place] [address] Oct, [facility] [address] [id number] [address] [place] [address], [place] [id number] Oct, [facility] [address] [id number] [address] [place] [address], [place] [address] Oct, [facility] [address] [id number] [address] [place] [address], [place] [address] Oct, [facility] [address] [id number] [address] [place] [address], [place] [address] Sep, [facility] [address] [id number] [address] [place] [address], [place] [address] Sep, [facility] [address] [id number] [address] [place] [address], [place] [id number] Sep, [facility] [address] [id number] [address] [place] [address], [place] [id number] Sep, [facility] [address] [id number] [address] [place] [address], [place] [address] Sep, [facility] [address] [id number] [address] [place] [address], [place] [address] Sep, [facility] [address] [id number] [address] [place] [address], [place] [address] Sep, [facility] [address] [id number] [address] [place] [address], [place] [id number] Sep, [facility] [address] [id number] [address] [place] [address], [place] [address] Sep, [facility] [address] [id number] [address] [place] [address], [place] [address] Sep, [facility] [address] [id number] [address] [place] [id number] Aug, [facility] [address] [id number] [address] [place] [address], [place] [address] Aug, [facility] [address] [id number] [address] [place] [address], [place] [address] Jul, [facility] [address] [id number] [address] [place] [address], [place] [address] Jul, [facility] [address] [id number] [address] [place] [address], [place] [address] Jul, [facility] [address] [id number] [address] [place] [address], [place] [address] Jul, [facility] [address] [id number] [address] [place] [address], [place] [address] Jul, [facility] [address] [id number] [address] [place] [address], [place] [id number] Jul, [facility] [address] [id number] [address] [place] [address], [place] [id number] Jul, [facility] [address] [id number] [address] [place] [address], [place] [address] Jul, [facility] [address] [id number] [address] [place] [address], [place] [address] Jul, [facility] [address] [id number] [address] [place] [address], [place] [address] Jul, [facility] [address] [id number] [address] [place] [address], [place] [address] Jul, [facility] [address] [id number] [address] [place] [address], [place] [address] Jul, [facility] [address] [id number] [address] [place] [address], [place] [address] Jul, [facility] [address] [id number] [address] [place] [address], [place] [id number] 05 Jul, 2013 [facility] [address] [id number] [address] [place] [address], [place] [id number] 05 Jul, 2012 [facility] [address] [id number] [address] [place] [address], [place] [address] Jul, 2012 [facility] [address] [id number] [address] [place] [address], [place] [id number] Jul, 2012 [facility] [address] [id number] [address] [place] [address], [place] [id number] Jul, 2012 [facility] [address] [id number] [address] [place] [address], [place] [address] Jul, 2012 [facility] [address] [id number] [address] [place] [address], [place] [id number] Jun, 2012 [facility] [address] [id number] [address] [place] [address], [place] [id number] Jun, 2012 [facility] [address] [id number] [address] [place] [address], [place] [address] Jun, 2012 [facility] [address] [id number] [address] [place] [address], [place] [address] Jun, 2012 [facility] [address] [id number] [address] [place] [address], [place] [address] Jun, 2012 [facility] [address] [id number] [address] [place] [address], [place] [address] Jun, 2012 [facility] [address] [id number] [address] [place] [address], [place] [address] Jun, 2012 [facility] [address] [id number] [address] [place] [address], [place] [address] Jun, 2012 [facility] [address] [id number] [address] [place] [address], [place] [id number] Jun, 2012 [facility] [address] [id number] [address] [place] [address], [place] [address] Jun, [facility] [address] [id number] [address] [place] [address], [place] [address] Jun, [facility] [address] [id number] [address] [place] [address], [place] [address] May, 2012 [facility] [address] [id number] [address] [place] [address], [place] [address] May, [facility] [address] [id number] [address] [place] [address], [place] [address] May, [facility] [address] [id number] [address] [place] [address], [place] [address] 17 May, 2012 [facility] [address] [id number] [address] [place] [address], [place] [address] May, [facility] [address] [id number] [address] [place] [address], [place] [address] May, [facility] [address] [id number] [address] [place] [address], [place] [address] May, [facility] [address] [id number] [address] [place] [address], [place] [address] 05 May, 2013 [facility] [address] [id number] [address] [place] [address], [place] [address] Apr, [facility] [address] [id number] [address] [place] [address], [place] [address] Apr, [facility] [address] [id number] [address] [place] [address], [place] [address] Apr, [facility] [address] [id number] [address] [place] [address], [place] [address] Apr, [facility] [address] [id number] [address] [place] [address], [place] [address] Apr, [facility] [address] [id number] [address] [place] [address], [place] [address] Mar, [facility] [address] [id number] [address] [place] [address], [place] [id number] Mar, [facility] [address] [id number] [address] [place] [address], [place] [id number] Mar, [facility] [address] [id number] [address] [place] [address], [place] [address] Mar, [facility] [address] [id number] [address] [place] [address], [place] [address] Mar, [facility] [address] [id number] [address] [place] [address], [place] [id number] Mar, [facility] [address] [id number] [address] [place] [address], [place] [address] Mar, [facility] [address] [id number] [address] [place] [address], [place] [address] Mar, [facility] [address] [id number] [address] [place] [address], [place] [address] Feb, [facility] [address] [id number] [address] [place] [address], [place] [address] Feb, [facility] [address] [id number] [address] [place] [address], [place] [id number] January, [facility] [address] [id number] [address] [place] [address], [place] [id number] January, [facility] [address] [id number] [address] [place] [address], [place] [address] Dec, [facility] [address] [id number] [address] [place] [address], [place] [address] Dec, [facility] [address] [id number] [address] [place] [address], [place] [address] Nov, [facility] [address] [id number] [address] [place] [address], [place] [address] Nov, [facility] [address] [id number] [address] [place] [address], [place] [address] Nov, [facility] [address] [id number] [address] [place] [address], [place] [address] Nov, [facility] [address] [id number] [facility] [place] [address] Oct, [facility] [address] [id number] [address] [place] [address], [place] [id number] Oct, [facility] [address] [id number] [address] [place] [address], [place] [address] Oct, [facility] [address] [id number] [address] [place] [address], [place] [address] Oct, [facility] [address] [id number] [address] [place] [address], [place] [id number] 16 Oct, 2012 [facility] [address] [id number] [address] [place] [address], [place] [id number] 14 Oct, 2012 [facility] [address] [id number] [address] [place] [address], [place] [id number] 08 Oct, 2012 [facility] [address] [id number] [address] [place] [address], [place] [id number] 07 Oct, 2012 [facility] [address] [id number] [address] [place] [address], [place] [id number] 03 Oct, 2012 [facility] [address] [id number] [address] [place] [address], [place] [address] Sep, [facility] [address] [id number] [address] [place] [address], [place] [address] Sep, [facility] [address] [id number] [address] [place] [address], [place] [id number] Sep, [facility] [address] [id number] [address] [place] [address], [place] [id number] Sep, [facility] [address] [id number] [address] [place] [address], [place] [id number] Sep, [facility] [address] [id number] [address] [place] [address], [place] [id number] Sep, [facility] [address] [id number] [address] [place] [address], [place] [id number] Sep, [facility] [address] [id number] [address] [place] [address], [place] [id number] Sep, [facility] [address] [id number] [address] [place] [address], [place] [id number] Aug, [facility] [address] [id number] [address] [place] [address], [place] [id number] Aug, [facility] [address] [id number] [address] [place] [address], [place] [id number] Aug, [facility] [address] [id number] [address] [place] [address], [place] [id number] Aug, [facility] [address] [id number] [address] [place] [address], [place] [address] Aug, [facility] [address] [id number] [address] [place] [address], [place] [id number] Aug, [facility] [address] [id number] [address] [place] [address], [place] [id number] Aug, [facility] [address] [id number] [address] [place] [address], [place] [id number] Aug, [facility] [address] [id number] [address] [place] [address], [place] [id number] Jul, [facility] [address] [id number] [address] [place] [address], [place] [id number] Jul, [facility] [address] [id number] [address] [place] [address], [place] [id number] Jul, [facility] [address] [id number] [address] [place] [address], [place] [id number] Jul, [facility] [address] [id number] [address] [place] [address], [place] [id number] Jul, [facility] [address] [id number] [address] [place] [address], [place] [id number] Jul, [facility] [address] [id number] [address] [place] [address], [place] [id number] Jun, [facility] [address] [id number] [address] [place] [address], [place] [id number] Jun, [facility] [address] [id number] [address] [place] [address], [place] [id number] Jun, [facility] [address] [id number] [address] [place] [address], [place] [id number] Jun, [facility] [address] [id number] [address] [place] [address], [place] [address] Jun, [facility] [address] [id number] [address] [place] [address], [place] [id number] Jun, [facility] [address] [id number] [address] [place] [address], [place] [id number] Jun, [facility] [address] [id number] [address] [place] [address], [place] [id number] Jun, [facility] [address] [id number] [address] [place] [address], [place] [id number] Jun, [facility] [address] [id number] [address] [place] [address], [place] [id number] May, [facility] [address] [id number] [address] [place] [address], [place] [id number] 24 May, 2012 [facility] [address] [id number] [address] [place] [address], [place] [id number] May, [facility] [address] [id number] [address] [place] [address], [place] [id number] Apr, [facility] [address] [id number] [address] [place] [address], [place] [id number] Apr, [facility] [address] [id number] [address] [place] [address], [place] [id number] Apr, [facility] [address] [id number] [address] [place] [address], [place] [id number] Apr, [facility] [address] [id number] [address] [place] [address], [place] [id number] Apr, [facility] [address] [id number] [address] [place] [address], [place] [address] Apr, [facility] [address] [id number] [address] [place] [address], [place] [id number] Mar, [facility] [address] [id number] [address] [place] [address], [place] [id number] Mar, [facility] [address] [id number] [address] [place] [address], [place] [id number] Mar, [facility] [address] [id number] [address] [place] [address], [place] [id number] Mar, [facility] [address] [id number] [address] [place] [address], [place] [id number] Feb, [facility] [address] [id number] [address] [place] [address], [place] [id number] Feb, [facility] [address] [id number] [address] [place] [address], [place] [id number] Feb, [facility] [address] [id number] [address] [place] [address], [place] [id number] Feb, [facility] [address] [id number] [address] [place] [address], [place] [id number] Feb, [facility] [address] [id number] [address] [place] [address], [place] [id number] January, [facility] [address] [id number] [address] [place] [address], [place] [id number] January, [facility] [address] [id number] [address] [place] [address], [place] [id number] January, [facility] [address] [id number] [address] [place] [address], [place] [id number] January, [facility] [address] [id number] [address] [place] [address], [place] [id number] January, [facility] [address] [id number] [address] [place] [address], [place] [id number] January, [facility] [address] [id number] [address] [place] [address], [place] [id number] Dec, [facility] [address] [id number] [address] [place] [address], [place] [id number] Dec, [facility] [address] [id number] [address] [place] [address], [place] [id number] Dec, [facility] [address] [id number] [address] [place] [address], [place] [id number] Dec, [facility] [address] [id number] [address] [place] [address], [place] [id number] Dec, [facility] [address] [id number] [address] [place] [address], [place] [id number] Nov, [facility] [address] [id number] [address] [place] [address], [place] [id number] 14 Nov, 2011 [facility] [address] [id number] [address] [place] [address], [place] [id number] Nov, [facility] [address] [id number] [address] [place] [address], [place] [id number] Nov, [facility] [address] [id number] [address] [place] [address], [place] [id number] 29 Oct, 2011 [facility] [address] [id number] [address] [place] [address], [place] [id number] Oct, [facility] [address] [id number] [address] [place] [address], [place] [id number] 24 Oct, 2011 [facility] [address] [id number] [address] [place] [address], [place] [id number] 13 Oct, 2011 [facility] [address] [id number] [address] [place] [address] [address] Oct, [facility] [address] [id number] [address] [place] [address], [place] [id number] Sep, [facility] [address] [id number] [address] [place] [address], [place] [id number] Sep, [facility] [address] [id number] [address] [place] [address], [place] [id number] Sep, [facility] [address] [id number] [address] [place] [address], [place] [id number] Sep, [facility] [address] [id number] [address] [place] [address], [place] [id number] Sep, [facility] [address] [id number] [address] [place] [address], [place] [id number] Sep, [facility] [address] [id number] [address] [place] [address], [place] [id number] Aug, [facility] [address] [id number] [address] [place] [address], [place] [id number] Aug, [facility] [address] [id number] [address] [place] [address], [place] [id number] Aug, [facility] [address] [id number] [address] [place] [address], [place] [id number] Jul, [facility] [address] [id number] [address] [place] [id number] Jul, [facility] [address] [id number] [address] [place] [id number] Jul, [facility] [address] [id number] [address] [place] [address], [place] [id number] Jul, [facility] [address] [id number] [address] [place] [address], [place] [id number] Jun, [facility] [address] [id number] [address] [place] [address], [place] [id number] Jun, [facility] [address] [id number] [address] [place] [address], [place] [id number] 18 Jun, 2011 [facility] [address] [id number] [address] [place] [address], [place] [id number] 10 Jun, 2011 [facility] [address] [id number] [address] [place] [address], [place] [id number] 10 Jun, 2011 [facility] [address] [id number] [address] [place] [address], [place] [id number] 10 Jun, 2011 [facility] [address] [id number] [address] [place] [address], [place] [id number] 11 Mar, 2011 [facility] [address] [id number] [address] [place] [address], [place] [id number] 18 Dec, 2010 [facility] [address] [id number] [address] [place] [address], [place] [id number] 11 Dec, 2010 [facility] [address] [id number] [address] [place] [address], [place] [id number] 18 Nov, 2010 [facility] [address] [id number] [address] [place] [address], [place] [id number] 16 Nov, 2010 [facility] [address] [id number] [address] [place] [address], [place] [id number] 10 Sep, 2010 [facility] [address] [id number] [address] [place] [address], [place] [id number] 31 Aug, 2010 [facility] [address] [id number] [address] [place] [address], [place] [id number] 29 Aug, 2010 [facility] [address] [id number] [address] [place] [address], [place] [id number] 29 Aug, 2010 [facility] [address] [id number] [address] [place] [address], [place] [id number] 29 Aug, 2010 [facility] [address] [id number] [address] [place] [address], [place] [id number] 27 Aug, 2010 [facility] [address] [id number] [address] [place] [address], [place] [id number] 14 Aug, 2010 [facility] [address] [id number] [address] [place] [address], [place] [id number] 08 Aug, 2010 [facility] [address] [id number] [address] [place] [address], [place] [id number] 08 Aug, 2010 [facility] [address] [id number] [address] [place] [address], [place] [id number] 07 Aug, 2010 [facility] [address] [id number] [address] [place] [address], [place] [id number] Aug, [facility] [address] [id number] [address] [place] [address], [place] [id number] Aug, [facility] [address] [id number] [address] [place] [address], [place] [id number] Aug, [facility] [address] [id number] [address] [place] [address], [place] [id number] Jul, [facility] [address] [id number] [address] [place] [address], [place] [id number] Jul, [facility] [address] [id number] [address] [place] [address], [place] [id number] Jul, [facility] [address] [id number] [address] [place] [id number] Jul, [facility] [address] [id number] [address] [place] [id number] Jul, [facility] [address] [id number] [address] [place] [id number] Jul, [facility] [address] [id number] [address] [place] [address], [place] [id number] Jun, [facility] [address] [id number] [address] [place] [address], [place] [id number] Jun, [facility] [address] [id number] [address] [place] [id number] Jun, [facility] [address] [id number] [address] [place] [id number] 13 Jun, 2010 [facility] [address] [id number] [address] [place] [address], [place] [id number] 16 Apr, 2010 [facility] [address] [id number] [address] [place] [id number] 20 Mar, 2010 [facility] [address] [id number] [address] [place] [address], [place] [id number] 17 Feb, 2010 [facility] [address] [id number] [address] [place] [id number] January, [facility] [address] [id number] [address] [place] [address], [place] [id number] 15 Dec, 2009 [facility] [address] [id number] [address] [place] [id number] Nov, [facility] [address] [id number] [address] [place] [id number] 31 Aug, 2009 [facility] [address] [id number] [address] [place] [id number] Aug, [facility] [address] [id number] [address] [place] [id number] Aug, [facility] [address] [id number] [address] [place] [id number] Jul, [facility] [address] [id number] [address] [place] [id number] Jul, [facility] [address] [id number] [address] [place] [phone] Jul, [facility] [address] [id number] [address] [place] [id number] 30 Jun, 2009 [facility] [address] [id number] [address] [place] [id number] 29 Jun, 2009 [facility] [address] [id number] [address] [place] [id number] Jun, [facility] [address] [id number] [address] [place] [id number] Jun, [facility] [address] [facility] [id number] [address] [place] [phone] Jun, [facility] [address] [facility] [id number] [address] [place] [id number] Jun, [facility] [address] [facility] [id number] [address] [place] [id number] Apr, [facility] [address] [facility] [id number] [address] [place] [id number] Apr, [facility] [address] [facility] [id number] [address] [place] [id number] Feb, [facility] [address] [facility] [id number] [address] [place] [id number] January, [facility] [address] [facility] [id number] [address] [place] [id number] Dec, IMMUNIZATIONS No Known Immunizations SOCIAL HISTORY [...] obesity Medical History skin cancer-basal cell R shinto (removed ) Medical History Arthritis Medical History [...] History inability to urinate 09/16/15 Hospitalization History [facility] mental health ea [facility]ly 1999's Hospitalization History hyperkalemia 10/2017 Hospitalization History fluid in lung
--- OUTSIDE RECORDS SUMMARY | 2020-03-01 17:46 | XMS REPORT ---
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 Name Role Phone Migration, Doctor Unavailable Unavailable PROBLEMS Type Condition ICD9-CM Code IQN13-DP Code Onset Dates Condition S tatus SNOMED Code Problem Leukocytosis D72.829 Active 2297612 06 Problem Bipolar I disorder, most recent episode (or curr ent) mixed, moderate F31.62 Active 24261338 Problem Reactive airway disease J45.909 Active 404300763279 Problem Anxiety F41.9 Active 69132586 Problem Insomnia, unspecified type G47.00 Act sharon 159488536 Problem Essential hypertension I10 Active 04095800 Problem Morbid obesity E66.01 Active 36926 6002 Problem Skin cancer C44.90 Active 13273824 7 Problem DM neuro manif type II E11.49 Active 88133719 Problem Mild cognitive impairment G31.84 Acti ve 969612265 Problem Benign prostatic hyperplasia with lower urinary tract symptoms, unspecified morphology N40.1 Active 34474 6007 Problem Chronic pain G89.29 Active 7183220 1 Problem Diabetes E11.9 Active 19438955 Problem Retinal edema H35.81 Active 848320 6 Problem Anemia of chronic illness D63.8 Acti ve 226413424 Problem Falling R29.6 Active 040431696 Problem Pressure ulcer of other site, stage 3 L89.893 Active 676895114 Problem 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 Active 233632916 Problem Eye exam abnormal R93.8 Active 16 7237021 Problem Pure hypercholesterolemia E78.00 Acti ve 880669782 Problem Dysuria R30.0 Active 82813381 Problem Bipolar disorder, in partial remission, most rec ent episode depressed F31.75 Active 67841811 Problem Hypokalemia E87.6 Active 41252821 Problem Other iron deficiency anemia D50.8 A ctive 41548257 Problem Eustachian tube dysfunction, unspecified laterality H69.80 Active 46963224 Problem Primary osteoarthritis of right knee M17.11 Active 160234710489119 Problem Cough R05 Active 49707640 Problem Bipolar disorder F31.9 Active 137 46346 Problem Chronic diastolic (congestive) heart failure I50.3 2 Active 255203605 Problem Psychophysiological insomnia F51.04 A ctive 781680318 Problem Gastroesophageal reflux disease without esophagitis K21.9 Active 363185829 Problem Polyneuropathy associated with underlying disease G63 Active 649910948 Problem Other secondary acute gout, 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 0 Active 189770852 Problem Diabetic polyneuropathy associated with type 2 d iabetes mellitus E11.42 Active 90545802 Problem Chronic lymphocytic leukemia C91.10 A ctive 94685411 Problem Bilateral primary osteoarthritis of knee M17.0 Active 005953569 Problem Type 2 diabetes mellitus with diabetic neuropathy, uns pecified E11.40 Active 99014309 Problem assisted (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 Z79.4 Active 429629294 Problem Lymphocytosis D72.820 Active 198863 09 Problem Mood disorder F39 Active 048753 05 Problem Bipolar I disorder, most recent episode depressed, moderat e F31.32 Active 965500353 ALLERGIES No Information ENCOUNTERS Encounter Location Date Diagnosis [place] [address] [facility] [id number] [address] [place] [address] January, [place] [address] [facility] [id number] [address] [place] [address] January, Chronic pain G89.29 [place] [address] [facility] [id number] [address] [place] [address] Dec, [place] [address] [facility] [id number] [address] [place] [address] 17 Dec, 2019 Chronic pain G89.29 [place] [address] [facility] [id number] [address] [place] [address] Dec, [place] [address] [facility] [id number] [address] [place] [address] Dec, [place] [address] [facility] [id number] [address] [place] [address] Dec, Gastroesophageal reflux dise ase without esophagitis K21.9 and Pure hypercholesterolemia E78.00 [place] [address] [id number] [address] [place] [address] Dec, Mood disorder F39 [facility] [address] [facility] [id number] [address] [place] [address] Nov, Other secondary acute gout, 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 [facility] [address] [facility] [id number] [address] [place] [address] Nov, Gastroesophageal reflux dise ase without esophagitis K21.9 [facility] [address] [facility] [id number] [address] [place] [address] Nov, Chronic pain G89.29 [place] [address] [facility] [id number] [address] [place] [address] Nov, Bipolar I disorder, most rec ent episode depressed, moderate F31.32 ; Anxiety F41.9 and Mild cognitive impairment G31.84 [place] [address] [facility] [id number] [address] [place] [address] Nov, [facility] [address] [facility] [id number] [address] [place] [address] Nov, Syncope, unspecified syncope type R55 [facility] [address] [facility] [id number] [address] [place] [address] Nov, Mood disorder F39 [facility] [address] [facility] [id number] [address] [place] [address] Oct, Chronic pain G89.29 [facility] [address] [id number] [address] [place] [address] Oct, [facility] [address] [id number] [address] [place] [address] Oct, Mood disorder F39 [facility] [address] [facility] [id number] [address] [place] [address] Oct, [facility] [address] [facility] [id number] [address] [place] [address] Oct, Bipolar disorder, in partial remission, most recent episode depressed F31.75 and Mild cognitive impairment G31.84 [facility] [address] [id number] [address] [place] [address] 04 Oct, 2019 Mood disorder F39 [facility] [address] [id number] [address] [place] [phone] 28 Sep, 2019 [facility] [address] [id number] [address] [place] [address] Sep, Mood disorder F39 [facility] [address] [id number] [address] [place] [address] 13 Sep, 2019 Bipolar disorder, in partial remission, most recent episode depressed F31.75 and Mild cognitive impairment G31.84 [facility] [address] [id number] [address] [place] [address] 06 Sep, 2019 Mood disorder F39 [facility] [address] [id number] [address] [place] [address] Sep, [facility] [address] [id number] [address] [place] [address] Sep, Mood disorder F39 [facility] [address] [id number] [address] [place] [address] Sep, [facility] [address] [id number] [address] [place] [address] Aug, Mood disorder F39 [facility] [address] [id number] [address] [place] [phone] Aug, [facility] [address] [id number] [address] [place] [address] Aug, [facility] [address] [id number] [address] [place] [address] Aug, [facility] [address] [id number] [address] [place] [address] Aug, [facility] [address] [id number] [address] [place] [address] Aug, [facility] [address] [id number] [address] [place] [address] Aug, [facility] [address] [id number] [address] [place] [address] Aug, [facility] [address] [id number] [address] [place] [address] Aug, Essential hypertension I10 [facility] [address] [id number] [address] [place] [address] Aug, Bipolar disorder, in partial remission, most recent episode depressed F31.75 and Mild cognitive impairment G31.84 [facility] [address] [id number] [address] [place] [address] Aug, Mood disorder F39 [facility] [address] [id number] [address] [place] [address] Aug, [facility] [address] [id number] [address] [place] [address] Aug, Bipolar disorder, in partial remission, most recent episode depressed F31.75 and Mild cognitive impairment G31.84 [facility] [address] [id number] [address] [place] [address] Jul, Bipolar disorder, in partial remission, most recent episode depressed F31.75 and Mild cognitive impairment G31.84 [facility] [address] [id number] [address] [place] [address] Jul, Psychophysiological insomnia F51.04 [facility] [address] [id number] [address] [place] [address] Jul, [facility] [address] [id number] [address] [place] [address] Jul, [facility] [address] [id number] [address] [place] [address] Jul, [facility] [address] [id number] [address] [place] [address] Jul, [facility] [address] [facility] [id number] [address] [place] [address] Jul, [facility] [address] [facility] [id number] [address] [place] [address] Jul, [facility] [address] [facility] [id number] [address] [place] [address] Jul, Bipolar disorder, in partial remission, most recent episode depressed F31.75 and Mild cognitive impairment G31.84 [place] [address] [facility] [id number] [address] [place] [address] Jul, Chronic pain G89.29 ; Diabet es E11.9 ; Essential hypertension I10 ; Ill feeling R68.89 ; Local infection of the skin and subcutaneous tissue, unspecified L08.9 and Other injury of unspecified body region, initial encounter T14.8XXA [place] [address] [facility] [id number] [address] [place] [address] Jun, Bipolar disorder, in partial remission, most recent episode depressed F31.75 and Mild cognitive impairment G31.84 [place] [address] [facility] [id number] [address] [place] [address] Jun, [place] [address] [facility] [id number] [address] [place] [address] Jun, Bipolar disorder, in partial remission, most recent episode depressed F31.75 and Mild cognitive impairment G31.84 [place] [id number] [facility] [id number] [address] [place] [address] Jun, Psychophysiological insomnia F51.04 [place] [address] [facility] [id number] [address] [place] [address] Jun, Psychophysiological insomnia F51.04 ; Chronic pain G89.29 ; Bipolar I disorder, most recent episode (or current) mixed, moderate F31.62 ; 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 ; Polyneuropathy associated with underlying disease G63 ; Type 2 diabetes mellitus with diabetic neuropathy, unspecified E11.40 ; assisted (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 Z79.4 and Hyperglycemia R73.9 [place] [address] [place] [id number] [address] [place] [address] Jun, Bipolar disorder, in partial remission, most recent episode depressed F31.75 and Mild cognitive impairment G31.84 [place] [id number] [place] [address] Jun, [place] [address] [place] [id number] [address] [place] [address] Jun, Bipolar disorder F31.9 [place] [address] [place] [id number] [address] [place] [address] May, Bipolar disorder, in partial remission, most recent episode depressed F31.75 and Mild cognitive impairment G31.84 [place] [id number] [place] [address] May, [place] [address] [place] [id number] [address] [place] [address] Apr, Chronic pain G89.29 and Bipo lar disorder F31.9 [place] [address] [place] [id number] [address] [place] [address] Mar, Bipolar disorder F31.9 and C hronic pain G89.29 [place] [address] [place] [id number] [address] [place] [address] Feb, Bipolar disorder F31.9 [place] [address] [place] [id number] [address] [place] [address] Feb, Cellulitis of right upper ex tremity L03.113 and Skin abrasion T14.8XXA [place] [address] [place] [id number] [address] [place] [address] Feb, Bipolar disorder, in partial remission, most recent episode depressed F31.75 and Mild cognitive impairment G31.84 [place] [address] [place] [id number] [address] [place] [address] Feb, Chronic pain G89.29 [facility] [address] [id number] [address] [place] [address] Feb, Bipolar disorder, in partial remission, most recent episode depressed F31.75 and Mild cognitive impairment G31.84 [facility] [address] [id number] [address] [place] [address] January, Bipolar disorder, in partial remission, most recent episode depressed F31.75 and Mild cognitive impairment G31.84 [facility] [address] [id number] [address] [place] [address] January, Chronic pain G89.29 and Bipo lar disorder F31.9 [facility] [address] [id number] [address] [place] [address] January, Bipolar disorder, in partial remission, most recent episode depressed F31.75 and Mild cognitive impairment G31.84 [facility] [address] [id number] [address] [place] [address] Dec, [facility] [address] [id number] [address] [place] [address] Dec, Chronic pain G89.29 and Bipo lar disorder F31.9 [facility] [address] [id number] [address] [place] [address] Dec, Edema of both lower extremit ies R60.0 [facility] [address] [id number] [address] [place] [address] Dec, Bipolar disorder F31.9 [facility] [address] [id number] [address] [place] [address] Dec, Bipolar disorder, in partial remission, most recent episode depressed F31.75 and Mild cognitive impairment G31.84 [facility] [address] [id number] [address] [place] [address] Nov, [facility] [address] [id number] [address] [place] [address] Nov, Chronic pain G89.29 [place] [address] [place] [id number] [address] [place] [address] Nov, Bipolar disorder, in partial remission, most recent episode depressed F31.75 and Mild cognitive impairment G31.84 [place] [address] [place] [id number] [address] [place] [address] Nov, Bipolar disorder F31.9 [place] [address] [place] [id number] [address] [place] [address] 04 Nov, 2018 Encounter for Medicare annua [...] unspecified morphology N40.1 and Essential hypertension I10 [place] [address] [place] [id number] [address] [place] [address] Oct, Chronic pain G89.29 [place] [address] [place] [id number] [address] [place] [address] 18 Oct, 2018 Diabetes E11.9 [place] [address] [place] [id number] [address] [place] [address] Oct, Bipolar I disorder, most rec ent episode (or current) mixed, moderate F31.62 and Mild cognitive impairment G31.84 [place] [address] [place] [id number] [address] [place] [address] Oct, Bipolar I disorder, most rec ent episode (or current) mixed, moderate F31.62 and Mild cognitive impairment G31.84 [place] [address] [place] [id number] [address] [place] [address] Sep, Bipolar I disorder, most rec ent episode (or current) mixed, moderate F31.62 and Mild cognitive impairment G31.84 [facility] [address] [facility] [id number] [address] [place] [address] Sep, [facility] [address] [facility] [id number] [address] [place] [address] Sep, Diabetes E11.9 ; Hypoxia R09 .02 ; Hyperglycemia R73.9 ; Therapeutic drug monitoring Z51.81 ; BMI 50.0-59.9, adult Z68.43 and Skin cancer C44.90 [facility] [address] [id number] [address] [place] [address] Sep, Chronic pain G89.29 [place] [address] [facility] [id number] [address] [place] [address] Sep, Bipolar I disorder, most rec ent episode (or current) mixed, moderate F31.62 [place] [address] [facility] [id number] [address] [place] [address] Sep, [facility] [address] [id number] [address] [place] [address] Sep, [facility] [address] [facility] [id number] [address] [place] [address] Aug, Chronic pain G89.29 [facility] [address] [facility] [id number] [address] [place] [address] Aug, Bipolar I disorder, most rec ent episode (or current) mixed, moderate F31.62 [facility] [address] [id number] [address] [place] [address] Aug, Bipolar I disorder, most rec ent episode (or current) mixed, moderate F31.62 and Mild cognitive impairment G31.84 [facility] [address] [id number] [address] [place] [address] Jul, [facility] [address] [facility] [id number] [address] [place] [address] Jul, Chronic pain G89.29 [facility] [address] [id number] [address] [place] [address] Jul, Bipolar I disorder, most rec ent episode (or current) mixed, moderate F31.62 and Mild cognitive impairment G31.84 [facility] [address] [id number] [address] [place] [address] Jul, Bipolar I disorder, most rec ent episode (or current) mixed, moderate F31.62 and MCI (mild cognitive impairment) G31.84 [facility] [address] [id number] [address] [place] [address] Jul, [facility] [address] [id number] [address] [place] [address] Jul, [facility] [address] [id number] [address] [place] [phone] Jul, Bipolar I disorder, most rec ent episode (or current) mixed, moderate F31.62 [facility] [address] [id number] [address] [place] [address] Jul, Chronic pain G89.29 [facility] [address] [id number] [address] [place] [address] Jun, Bipolar I disorder, most rec ent episode (or current) mixed, moderate F31.62 [facility] [address] [id number] [address] [place] [address] Jun, Pre-procedure lab exam Z01.8 12 [facility] [address] [id number] [address] [place] [address] Jun, [facility] [address] [id number] [place] [id number] Jun, [facility] [address] [id number] [address] [place] [address] Jun, [facility] [address] [id number] [address] [place] [id number] Jun, Forgetfulness R68.89 ; Pre-s yncope R55 ; Localized edema R60.0 ; Other iron deficiency anemia D50.8 and BMI 50.0-59.9, adult Z68.43 [place] [address] [address] Jun, Chronic pain G89.29 [place] [address] [address] Jun, Chronic pain G89.29 [place] [address] [address] Jun, Bipolar I disorder, most rec ent episode (or current) mixed, moderate F31.62 [place] [address] [address] May, Chronic pain G89.29 [place] [address] [address] Apr, [place] [address] [address] Apr, Chronic pain G89.29 [place] [address] [address] Apr, Primary osteoarthritis of ri ght knee M17.11 [place] [address] [address] Mar, [place] [address] [address] Mar, BMI 50.0-59.9, adult Z68.43 and Bipolar disorder, in partial remission, most recent episode depressed F31.75 [place] [address] [address] Mar, Diabetes E11.9 ; Pure hyperc holesterolemia E78.00 ; Essential hypertension I10 ; Nausea with vomiting, unspecified R11.2 and Headache, unspecified headache type R51 [place] [address] [address] [place] [id number] [place] [id number] Mar, Bipolar I disorder, most rec ent episode (or current) mixed, moderate F31.62 [facility] [address] [facility] [id number] [address] [place] [id number] Mar, Bipolar I disorder, most rec ent episode (or current) mixed, moderate F31.62 [facility] [address] [facility] [id number] [address] [place] [id number] Mar, Chronic pain G89.29 [facility] [address] [facility] [id number] [address] [place] [id number] Mar, Bipolar I disorder, most rec ent episode (or current) mixed, moderate F31.62 [place] [address] [address] [facility] [id number] [address] [place] [phone] Feb, Bipolar I disorder, most rec ent episode (or current) mixed, moderate F31.62 [place] [address] [place] [id number] [address] [place] [address] Feb, Chronic pain G89.29 [facility] [address] [place] [id number] [address] [place] [address] Feb, Decubitus ulcer of right josselin t, stage 3 L89.893 and BMI 50.0-59.9, adult Z68.43 [place] [address] [place] [id number] [address] [place] [phone] Feb, Bipolar I disorder, most rec ent episode (or current) mixed, moderate F31.62 [facility] [address] [facility] [id number] [address] [place] [phone] Feb, [facility] [address] [facility] [id number] [address] [place] [phone] January, [facility] [address] [facility] [id number] [address] [place] [address] January, Chronic pain G89.29 [facility] [address] [address] January, Bipolar I disorder, most rec ent episode (or current) mixed, moderate F31.62 [place] [address] [address] January, Bipolar I disorder, most rec ent episode (or current) mixed, moderate F31.62 [place] [address] [address] Dec, Bipolar I disorder, most rec ent episode (or current) mixed, moderate F31.62 and BMI 50.0-59.9, adult Z68.43 [place] [address] [address] Dec, Bipolar I disorder, most rec ent episode (or current) mixed, moderate F31.62 [place] [address] [address] Dec, Chronic pain G89.29 [place] [address] [address] Dec, DM neuro manif type II E11.4 9 ; Right flank pain R10.9 ; assisted 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 Z79.891 ; Encounter for medication monitoring Z51.81 and BMI 50.0-59.9, adult Z68.43 [place] [address] [address] Dec, Bipolar I disorder, most rec ent episode (or current) mixed, moderate F31.62 [place] [address] [address] Nov, Bipolar I disorder, most rec ent episode (or current) mixed, moderate F31.62 [place] [address] [address] Nov, Chronic pain G89.29 [place] [address] [address] Nov, Bipolar I disorder, most rec ent episode (or current) mixed, moderate F31.62 [facility] [address] [facility] [id number] [address] [place] [phone] Nov, Hypokalemia E87.6 [facility] [address] [facility] [id number] [address] [place] [phone] Nov, Bipolar I disorder, most rec ent episode (or current) mixed, moderate F31.62 [facility] [address] [place] [id number] [address] [place] [address] Oct, Chronic pain G89.29 [place] [address] [place] [id number] [address] [place] [address] Oct, BMI 50.0-59.9, adult Z68.43 and Bipolar I disorder, most recent episode (or current) mixed, moderate F31.62 [place] [address] [place] [id number] [address] [place] [phone] Oct, Bipolar I disorder, most rec ent episode (or current) mixed, moderate F31.62 [place] [address] [place] [id number] [address] [place] [address] Oct, [place] [address] [place] [id number] [address] [place] [phone] Oct, Hypokalemia E87.6 [facility] [address] [place] [id number] [address] [place] [phone] Oct, DM neuro manif type II E11.4 9 [facility] [address] [facility] [id number] [address] [place] [phone] Oct, Bipolar I disorder, most rec ent episode (or current) mixed, moderate F31.62 [facility] [address] [place] [id number] [address] [place] [address] Oct, Bipolar I disorder, most rec ent episode (or current) mixed, moderate F31.62 [place] [address] [address] 14 Oct, 2017 Hyperkalemia E87.5 ; Falling R29.6 ; BMI 50.0-59.9, adult Z68.43 and Acute left ankle pain M25.572 [place] [address] [address] 08 Oct, 2017 DM neuro manif type II E11.4 9 [place] [address] [address] Oct, [place] [address] [address] Sep, Chronic pain G89.29 [place] [address] [address] Sep, [place] [address] [address] Sep, Bilateral primary osteoarthr itis of knee M17.[address] [address] Sep, Generalized edema R60.[address] [address] 16 Sep, 2017 Bipolar I disorder, most rec ent episode (or current) mixed, moderate F31.[address] [address] 15 Sep, 2017 Hypoxia R09.02 ; Other hyper volemia E87.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 [address] [facility] [id number] [address] [place] [address] Aug, Chronic pain G89.29 [facility] [address] [facility] [id number] [address] [place] [address] Aug, Generalized edema R60.1 [facility] [address] [place] [id number] [address] [place] [address] Aug, [facility] [address] [place] [id number] [address] [place] [address] Aug, [facility] [address] [place] [id number] [place] [address] Aug, Bipolar I disorder, most rec ent episode (or current) mixed, moderate F31.62 [place] [address] [place] [id number] [address] [place] [address] Aug, Bipolar I disorder, most rec ent episode (or current) mixed, moderate F31.62 [place] [address] [place] [id number] [address] [place] [address] Aug, Chronic pain G89.29 [facility] [address] [place] [id number] [address] [place] [address] 30 Jul, 2017 Bipolar I disorder, most rec ent episode (or current) mixed, moderate F31.62 [facility] [address] [place] [id number] [address] [place] [address] Jul, Bipolar I disorder, most rec ent episode (or current) mixed, moderate F31.62 and BMI 60.0-69.9, adult Z68.44 [facility] [address] [place] [id number] [address] [place] [address] 16 Jul, 2017 Bipolar I disorder, most rec ent episode (or current) mixed, moderate F31.62 [place] [address] [place] [id number] [address] [place] [address] Jul, Chronic pain G89.29 [facility] [address] [id number] [address] [place] [address] Jul, Bipolar I disorder, most rec ent episode (or current) mixed, moderate F31.62 [facility] [address] [facility] [id number] [address] [place] [address] Jun, Polyneuropathy associated wi th underlying disease G63 and Diabetes E11.9 [facility] [address] [id number] [address] [place] [address] Jun, Bipolar I disorder, most rec ent episode (or current) mixed, moderate F31.62 [facility] [address] [facility] [id number] [address] [place] [address] Jun, Chronic pain G89.29 [facility] [address] [facility] [id number] [address] [place] [address] May, Bipolar I disorder, most rec ent episode (or current) mixed, moderate F31.62 [facility] [address] [facility] [id number] [address] [place] [address] May, Bipolar I disorder, most rec ent episode (or current) mixed, moderate F31.62 [facility] [address] [facility] [id number] [address] [place] [address] May, Diabetic polyneuropathy asso ciated with type 2 diabetes mellitus E11.42 [facility] [address] [id number] [address] [place] [address] 18 May, 2017 Bipolar I disorder, most rec ent episode (or current) mixed, moderate F31.62 [facility] [address] [facility] [id number] [address] [place] [address] 13 May, 2017 Bipolar I disorder, most rec ent episode (or current) mixed, moderate F31.62 [facility] [address] [facility] [id number] [address] [place] [address] 12 May, 2017 Chronic pain G89.29 [facility] [address] [id number] [address] [place] [address] Apr, Bipolar I disorder, most rec ent episode (or current) mixed, moderate F31.62 [facility] [address] [id number] [address] [place] [address] Apr, [facility] [address] [facility] [id number] [address] [place] [address] Apr, Chronic pain G89.29 and DM n euro manif type II E11.49 [facility] [address] [id number] [address] [place] [address] Apr, [facility] [address] [id number] [address] [place] [phone] Apr, Bipolar I disorder, most rec ent episode (or current) mixed, moderate F31.62 [facility] [address] [facility] [id number] [address] [place] [address] Apr, Chronic pain G89.29 [facility] [address] [id number] [address] [place] [address] Apr, Iliotibial band syndrome, le ft M76.32 [facility] [address] [facility] [id number] [address] [place] [address] Apr, Bipolar I disorder, most rec ent episode (or current) mixed, moderate F31.62 [facility] [address] [facility] [id number] [address] [place] [address] Mar, Bipolar I disorder, most rec ent episode (or current) mixed, moderate F31.62 [facility] [address] [facility] [id number] [address] [place] [address] Mar, Bipolar I disorder, most rec ent episode (or current) mixed, moderate F31.62 [facility] [address] [facility] [id number] [address] [place] [address] Mar, [facility] [address] [facility] [id number] [address] [place] [address] Mar, Bipolar I disorder, most rec ent episode (or current) mixed, moderate F31.62 [facility] [address] [id number] [address] [place] [address] Mar, Chronic pain G89.29 [facility] [address] [id number] [address] [place] [address] Mar, Bipolar I disorder, most rec ent episode (or current) mixed, moderate F31.62 [facility] [address] [facility] [id number] [address] [place] [address] Mar, Bipolar I disorder, most rec ent episode (or current) mixed, moderate F31.62 [place] [address] [facility] [id number] [address] [place] [address] Mar, Acute pain of left knee M25. 562 ; Left hip pain M25.552 ; Generalized edema R60.1 and Tongue swelling R22.0 [facility] [address] [facility] [id number] [address] [place] [address] Mar, [facility] [address] [id number] [address] [place] [address] Feb, Chronic pain G89.29 [facility] [address] [facility] [id number] [address] [place] [address] Feb, Diabetes E11.9 [facility] [address] [id number] [address] [place] [address] January, Chronic pain G89.29 [facility] [address] [id number] [address] [place] [phone] January, [facility] [address] [facility] [id number] [address] [place] [address] January, Bipolar I disorder, most rec ent episode (or current) mixed, moderate F31.62 [facility] [address] [facility] [id number] [address] [place] [address] Dec, Bipolar I disorder, most rec ent episode (or current) mixed, moderate F31.62 [facility] [address] [id number] [address] [place] [address] Dec, Chronic pain G89.29 [facility] [address] [facility] [id number] [address] [place] [address] Dec, Bipolar I disorder, most rec ent episode (or current) mixed, moderate F31.62 [facility] [address] [facility] [id number] [address] [place] [address] Dec, Diabetes E11.9 ; Essential h ypertension I10 ; Chronic pain G89.29 and Morbid obesity E66.01 [facility] [address] [id number] [address] [place] [phone] Dec, [facility] [address] [facility] [id number] [address] [place] [address] Dec, Bipolar I disorder, most rec ent episode (or current) mixed, moderate F31.62 [facility] [address] [facility] [id number] [address] [place] [address] Dec, Bipolar I disorder, most rec ent episode (or current) mixed, moderate F31.62 [facility] [address] [facility] [id number] [address] [place] [address] Nov, Chronic pain G89.29 [facility] [address] [id number] [address] [place] [address] Nov, Bipolar I disorder, most rec ent episode (or current) mixed, moderate F31.62 [facility] [address] [id number] [address] [place] [address] Nov, [facility] [address] [facility] [id number] [address] [place] [address] Nov, Bipolar I disorder, most rec ent episode (or current) mixed, moderate F31.62 [facility] [address] [facility] [id number] [address] [place] [address] Nov, Bipolar I disorder, most rec ent episode (or current) mixed, moderate F31.62 [facility] [address] [facility] [id number] [address] [place] [address] Nov, [facility] [address] [facility] [id number] [address] [place] [address] Nov, [facility] [address] [place] [id number] [address] [place] [address] Nov, [facility] [address] [facility] [id number] [address] [place] [address] Oct, Chronic pain G89.29 [facility] [address] [facility] [id number] [address] [place] [address] Oct, Bipolar I disorder, most rec ent episode (or current) mixed, moderate F31.62 [facility] [address] [place] [id number] [address] [place] [address] Oct, 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 [address] [place] [id number] [address] [place] [address] Oct, [facility] [address] [place] [id number] [address] [place] [address] Oct, Diabetes E11.9 [facility] [address] [facility] [id number] [address] [place] [address] Oct, Bipolar I disorder, most rec ent episode (or current) mixed, moderate F31.62 [facility] [address] [facility] [id number] [address] [place] [address] Sep, Chronic pain G89.29 [facility] [address] [place] [id number] [address] [place] [address] Sep, Chronic pain G89.29 [facility] [address] [facility] [id number] [address] [place] [address] Aug, Chronic pain G89.29 [facility] [address] [facility] [id number] [address] [place] [id number] Jul, [facility] [address] [facility] [id number] [address] [place] [address] Jul, Diabetes E11.9 [facility] [address] [facility] [id number] [address] [place] [address] Jul, Chronic pain G89.29 [facility] [address] [facility] [id number] [address] [place] [address] Jul, Bipolar I disorder, most rec ent episode (or current) mixed, moderate F31.62 [place] [address] [place] [id number] [address] [place] [address] Jun, Bipolar I disorder, most rec ent episode (or current) mixed, moderate F31.62 [place] [address] [facility] [id number] [address] [place] [address] Jun, [facility] [address] [facility] [id number] [address] [place] [address] Jun, Bipolar I disorder, most rec ent episode (or current) mixed, moderate F31.62 [place] [address] [facility] [id number] [address] [place] [address] 30 May, 2016 Insomnia, unspecified type G 47.00 [facility] [address] [facility] [id number] [address] [place] [address] 22 May, 2016 Bipolar I disorder, most rec ent episode (or current) mixed, moderate F31.62 [facility] [address] [facility] [id number] [address] [place] [address] 14 May, 2016 [facility] [address] [facility] [id number] [address] [place] [id number] 08 May, 2016 Bipolar I disorder, most rec ent episode (or current) mixed, moderate F31.62 [place] [address] [facility] [id number] [address] [place] [address] May, Diabetes E11.9 and Essential hypertension I10 [place] [address] [facility] [id number] [address] [place] [phone] Apr, Chronic pain G89.29 [place] [address] [address] [facility] [id number] [address] [place] [phone] Apr, Bipolar I disorder, most rec ent episode (or current) mixed, moderate F31.62 [place] [address] [address] [facility] [id number] [address] [place] [id number] Apr, [place] [address] [address] [facility] [id number] [address] [place] [phone] Apr, [place] [address] [address] [place] [id number] [address] [place] [phone] Mar, Chronic pain G89.29 ; Headac he, unspecified headache type R51 ; Neuropathy G62.9 ; Pain of right hip joint M25.551 and Essential hypertension I10 [place] [address] [address] [facility] [id number] [address] [place] [phone] Mar, Chronic pain G89.29 [place] [address] [address] [facility] [id number] [address] [place] [phone] Mar, Bipolar I disorder, most rec ent episode (or current) mixed, moderate F31.62 [place] [address] [address] [facility] [id number] [address] [place] [id number] Feb, Bipolar I disorder, most rec ent episode (or current) mixed, moderate F31.62 and Insomnia, unspecified type G47.00 [place] [address] [address] [facility] [id number] [address] [place] [phone] Feb, Chronic pain G89.29 [place] [address] [address] [facility] [id number] [address] [place] [phone] Feb, Bipolar I disorder, most rec ent episode (or current) mixed, moderate F31.62 [facility] [address] [id number] [address] [place] [phone] January, Bipolar I disorder, most rec ent episode (or current) mixed, moderate F31.62 [facility] [address] [id number] [address] [place] [phone] January, Chronic pain G89.29 [facility] [address] [id number] [address] [place] [phone] January, Chronic pain G89.29 and Esse ntial hypertension I10 [facility] [address] [id number] [address] [place] [phone] January, Bipolar I disorder, most rec ent episode (or current) mixed, moderate F31.62 [facility] [address] [id number] [address] [place] [phone] Dec, [facility] [address] [id number] [address] [place] [phone] Dec, [facility] [address] [id number] [address] [place] [phone] Dec, [facility] [address] [id number] [address] [place] [phone] Dec, [facility] [address] [id number] [address] [place] [id number] Nov, Reactive airway disease J45. 909 [facility] [address] [id number] [address] [place] [phone] Nov, [facility] [address] [id number] [address] [place] [phone] Nov, [facility] [address] [id number] [address] [place] [address] Nov, [facility] [address] [id number] [address] [place] [address] Nov, [facility] [address] [address] Nov, Onychomycosis B35.1 ; Hammer toe M20.40 ; [place] or callus L84 and DM neuro manif type II E11.49 [place] [address] [address] Nov, Chronic pain G89.29 ; Leukoc ytosis D72.829 and Diabetes E11.9 [place] [address] [address] Nov, [place] [address] [address] Oct, Bronchitis J40 [place] [address] [address] Oct, [place] [address] [address] Oct, [place] [address] [address] Oct, Mastoiditis, unspecified lat erality H70.90 and Type 2 diabetes mellitus with complication E11.[address] [address] Sep, [address] [address] Sep, Dysuria R30.0 ; Cough R05 ; Benign prostatic hyperplasia with lower urinary tract symptoms, unspecified morphology N40.1 ; Hypokalemia E87.6 and Eustachian tube dysfunction, unspecified laterality H69.[address] [address] Sep, Moderate mixed bipolar I dis order F31.[address] [address] Sep, Hypokalemia E87.6 [place] [address] [place] [address] Sep, [facility] [address] [id number] [address] [place] [address] Sep, Upper respiratory tract infe ction, unspecified type J06.9 [facility] [address] [id number] [address] [place] [address] Aug, [facility] [address] [id number] [address] [place] [address] Aug, Dysuria R30.0 [facility] [address] [id number] [address] [place] [address] Aug, [facility] [address] [id number] [address] [place] [address] Jul, [facility] [address] [id number] [address] [place] [address] Jul, [facility] [address] [id number] [address] [place] [address] Jul, [facility] [address] [id number] [address] [place] [address] Jul, [facility] [address] [facility] [id number] [address] [place] [address] Jun, [facility] [address] [id number] [address] [place] [address] Jun, [facility] [address] [id number] [address] [place] [address] Jun, [facility] [address] [id number] [address] [place] [address] 29 May, 2015 [facility] [address] [facility] [id number] [address] [place] [address] May, Bipolar I disorder, most rec ent episode (or current) mixed, moderate 296.62 [facility] [address] [id number] [address] [place] [address] May, [facility] [address] [id number] [address] [place] [address] May, Bipolar I disorder, most rec ent episode (or current) mixed, moderate 296.62 and Major depressive disorder, recurrent episode, severe, specified as with psychotic behavior 296.34 [facility] [address] [id number] [address] [place] [address] May, Bipolar I disorder, most rec ent episode (or current) mixed, moderate 296.62 [facility] [address] [id number] [address] [place] [address] May, [facility] [address] [facility] [id number] [address] [place] [address] Apr, [facility] [address] [facility] [id number] [address] [place] [address] Apr, [facility] [address] [facility] [id number] [address] [place] [address] Apr, Unspecified disorder of kidn ey and ureter 593.9 and Diabetes mellitus type 2, uncontrolled 250.02 [facility] [address] [facility] [id number] [address] [place] [address] Apr, [facility] [address] [facility] [id number] [address] [place] [address] Apr, [facility] [address] [facility] [id number] [address] [place] [address] Apr, [facility] [address] [id number] [address] [place] [address] Apr, [facility] [address] [facility] [id number] [address] [place] [address] Apr, Diabetes mellitus type II, u ncontrolled 250.02 [facility] [address] [facility] [id number] [address] [place] [address] Apr, [facility] [address] [facility] [id number] [address] [place] [address] Mar, [facility] [address] [facility] [id number] [address] [place] [address] Mar, [facility] [address] [facility] [id number] [address] [place] [address] Mar, [facility] [address] [facility] [id number] [address] [place] [address] Mar, Major depressive disorder, r ecurrent episode, severe, specified as with psychotic behavior 296.34 and Bipolar I disorder, most recent episode (or current) mixed, moderate 296.62 [facility] [address] [facility] [id number] [address] [place] [address] Mar, Diabetes 250.00 ; Anuria 788 .5 ; Nausea and vomiting 787.01 and Diarrhea 787.91 [facility] [address] [facility] [id number] [address] [place] [address] Mar, Diabetes 250.00 [facility] [address] [facility] [id number] [address] [place] [address] Mar, [facility] [address] [facility] [id number] [address] [place] [address] Mar, Diabetes 250.00 [facility] [address] [facility] [id number] [address] [place] [address] Mar, [facility] [address] [facility] [id number] [address] [place] [address] Mar, [facility] [address] [facility] [id number] [address] [place] [address] Mar, [facility] [address] [facility] [id number] [address] [place] [address] Mar, [facility] [address] [facility] [id number] [address] [place] [address] Mar, Bipolar I disorder, most rec ent episode (or current) mixed, moderate 296.62 and Major depressive disorder, recurrent episode, severe, specified as with psychotic behavior 296.34 [place] [address] [address] Mar, Magnesium deficiency 275.2 ; Hypokalemia 276.8 ; Nausea & vomiting 787.01 and Diabetes mellitus type 2, uncontrolled 250.02 [place] [address] [address] Feb, [place] [address] [address] Feb, Bipolar I disorder, most rec ent episode (or current) mixed, moderate 296.[address] [address] Feb, Nausea and vomiting 787.01 ; Left elbow pain 719.42 ; Anuria 788.5 and Diabetes 250.[address] [address] Feb, [place] [address] [address] Feb, Hypopotassemia 276.8 and Hyp okalemia 276.[address] [address] Feb, Hypopotassemia 276.8 and Hyp okalemia 276.[address] [address] Feb, Seborrheic keratoses 702.19 [place] [address] [address] Feb, Hypopotassemia 276.8 and Low magnesium levels 275.2 [place] [address] [address] January, [place] [address] [address] January, [place] [address] [address] January, [facility] [address] [id number] [address] [place] [address] January, Scalp lesion 709.9 [facility] [address] [id number] [address] [place] [address] January, [facility] [address] [id number] [address] [place] [address] Dec, Tear of medial cartilage or meniscus of knee, current 836.0 and 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 [facility] [address] [id number] [address] [place] [address] Dec, [facility] [address] [id number] [address] [place] [address] Dec, [facility] [address] [id number] [address] [place] [address] Dec, Squamous cell carcinoma, 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 [address] [id number] [address] [place] [address] Dec, [facility] [address] [id number] [address] [place] [address] Dec, [facility] [address] [id number] [address] [place] [address] Nov, [facility] [address] [id number] [address] [place] [address] Nov, [facility] [address] [id number] [address] [place] [address] Nov, [facility] [address] [id number] [address] [place] [address] Nov, [facility] [address] [id number] [address] [place] [address] Nov, [facility] [address] [id number] [address] [place] [address] Nov, [facility] [place] [facility] [address] [id number] [address] [place] [address], [place] [address] Nov, [facility] [place] [facility] [address] [id number] [address] [place] [address], [place] [address] Nov, 2014 [facility] [place] [facility] [address] [id number] [address] [place] [address], [place] [address] Nov, 2014 [facility] [place] [facility] [address] [id number] [address] [place] [address], [place] [address] Nov, [facility] [place] [facility] [address] [id number] [address] [place] [address], [place] [address] Nov, [facility] [place] [facility] [address] [id number] [address] [place] [address], [place] [address] Nov, [facility] [place] [facility] [address] [id number] [address] [place] [address], [place] [address] Oct, 2014 [facility] [place] [facility] [address] [id number] [address] [place] [address], [place] [address] Oct, 2014 [facility] [place] [facility] [address] [id number] [address] [place] [address], [place] [address] Oct, 2014 [facility] [place] [facility] [address] [id number] [address] [place] [address], [place] [address] Oct, 2014 [facility] [place] [facility] [address] [id number] [address] [place] [address], [place] [address] Oct, 2014 [facility] [place] [facility] [address] [id number] [address] [place] [address] Oct, 2014 [facility] [place] [facility] [address] [id number] [address] [place] [address], [place] [address] Oct, 2014 [facility] [place] [facility] [address] [id number] [address] [place] [address], [place] [address] Oct, 2014 [facility] [place] [facility] [address] [id number] [address] [place] [address], [place] [address] Oct, 2014 [facility] [place] [facility] [address] [id number] [address] [place] [address], [place] [address] Sep, [facility] [address] [id number] [address] [place] [address], [place] [address] Sep, [facility] [address] [id number] [address] [place] [address], [place] [address] Sep, [facility] [address] [id number] [address] [place] [address], [place] [address] Sep, [facility] [address] [id number] [address] [place] [address], [place] [address] Sep, [facility] [address] [id number] [address] [place] [address], [place] [address] Sep, [facility] [address] [id number] [address] [place] [address], [place] [address] Sep, [facility] [address] [id number] [address] [place] [address], [place] [address] Sep, [facility] [address] [id number] [address] [place] [address], [place] [address] Sep, [facility] [address] [id number] [address] [place] [address], [place] [address] Sep, [facility] [address] [id number] [address] [place] [address], [place] [address] Sep, [facility] [address] [id number] [address] [place] [address], [place] [address] Sep, [facility] [address] [id number] [address] [place] [address], [place] [address] Sep, [facility] [address] [id number] [address] [place] [address], [place] [address] Sep, [facility] [address] [id number] [address] [place] [address], [place] [address] Sep, [facility] [address] [id number] [address] [place] [address], [place] [address] Sep, [facility] [address] [id number] [facility] [place] [address] Aug, [facility] [address] [id number] [facility] [place] [address] Aug, [facility] [address] [id number] [address] [place] [address], [place] [address] Aug, [facility] [address] [id number] [address] [place] [address], [place] [address] Aug, [facility] [address] [id number] [address] [place] [address], [place] [address] Aug, [facility] [address] [id number] [address] [place] [address], [place] [address] Aug, [facility] [address] [id number] [address] [place] [address], [place] [address] Aug, [facility] [address] [id number] [address] [place] [address], [place] [address] Aug, [facility] [address] [id number] [address] [place] [address], [place] [address] Aug, [facility] [address] [id number] [address] [place] [address], [place] [address] Aug, [facility] [address] [id number] [address] [place] [address], [place] [address] Aug, [facility] [place] [id number] Aug, [facility] [address] [id number] [address] [place] [address], [place] [address] Aug, [facility] [address] [id number] [address] [place] [address], [place] [address] Aug, [facility] [address] [id number] [address] [place] [address], [place] [address] Aug, [facility] [address] [id number] [address] [place] [address], [place] [address] Aug, [facility] [address] [id number] [address] [place] [address], [place] [address] Aug, [facility] [address] [id number] [address] [place] [address], [place] [address] Aug, [facility] [address] [id number] [address] [place] [address], [place] [address] Aug, [facility] [place] [facility] [address] [id number] [address] [place] [address], [place] [address] Aug, [facility] [address] [id number] [address] [place] [address], [place] [address] Aug, [facility] [address] [id number] [address] [place] [address], [place] [address] Aug, [facility] [address] [id number] [address] [place] [address], [place] [address] Aug, [facility] [address] [id number] [address] [place] [address], [place] [address] Aug, [facility] [address] [id number] [address] [place] [address], [place] [address] Aug, [facility] [address] [id number] [address] [place] [address], [place] [address] Aug, [facility] [address] [id number] [address] [place] [address], [place] [address] Aug, [facility] [place] [facility] [address] [id number] [address] [place] [address], [place] [address] Aug, [facility] [place] [facility] [address] [id number] [address] [place] [address], [place] [address] Aug, [facility] [place] [facility] [address] [id number] [address] [place] [address], [place] [address] Aug, [facility] [place] [facility] [address] [id number] [address] [place] [address], [place] [address] Jul, [facility] [place] [facility] [address] [id number] [address] [place] [address], [place] [address] Jul, [facility] [address] [id number] [address] [place] [address], [place] [address] Jul, [facility] [address] [id number] [address] [place] [address], [place] [address] Jul, [facility] [address] [id number] [address] [place] [address], [place] [address] Jul, [facility] [address] [id number] [address] [place] [address], [place] [address] Jul, [facility] [address] [id number] [address] [place] [address], [place] [address] Jul, [facility] [address] [id number] [address] [place] [address], [place] [address] Jul, [facility] [address] [id number] [address] [place] [address], [place] [address] Jul, [facility] [address] [id number] [address] [place] [address], [place] [address] Jul, [facility] [address] [id number] [address] [place] [address], [place] [address] Jun, [facility] [address] [id number] [address] [place] [address], [place] [address] Jun, [facility] [address] [id number] [address] [place] [address], [place] [address] Jun, [facility] [address] [id number] [address] [place] [address], [place] [address] 16 Jun, 2014 [facility] [address] [id number] [address] [place] [address], [place] [address] 15 Jun, 2014 [facility] [address] [id number] [address] [place] [address], [place] [address] 15 Jun, 2014 [facility] [address] [id number] [address] [place] [address], [place] [address] Jun, [facility] [address] [id number] [address] [place] [address], [place] [address] Jun, [facility] [address] [id number] [address] [place] [address], [place] [address] Jun, [facility] [address] [id number] [address] [place] [address], [place] [address] Jun, [facility] [address] [id number] [address] [place] [address], [place] [address] 29 May, 2013 [facility] [address] [id number] [address] [place] [address], [place] [address] 29 May, 2013 [facility] [address] [id number] [address] [place] [address], [place] [address] 26 May, 2013 [facility] [address] [id number] [address] [place] [address], [place] [address] 26 May, 2013 [facility] [address] [id number] [address] [place] [address], [place] [address] 17 May, 2013 [facility] [address] [id number] [address] [place] [address], [place] [address] 17 May, 2013 [facility] [address] [id number] [address] [place] [address], [place] [address] 15 May, 2013 [facility] [address] [id number] [address] [place] [address], [place] [address] 15 May, 2013 [facility] [address] [id number] [address] [place] [address] 15 May, 2013 [facility] [address] [id number] [address] [place] [address], [place] [address] 15 May, 2013 [facility] [address] [id number] [address] [place] [address], [place] [address] 10 May, 2013 [facility] [address] [id number] [address] [place] [address] 10 May, 2013 [facility] [address] [id number] [address] [place] [address], [place] [address] May, [facility] [address] [id number] [address] [place] [address], [place] [address] May, [facility] [address] [id number] [address] [place] [address], [place] [address] May, [facility] [address] [id number] [address] [place] [address], [place] [address] May, [facility] [address] [id number] [address] [place] [address], [place] [address] Apr, [facility] [address] [id number] [address] [place] [address], [place] [address] Apr, [facility] [address] [id number] [address] [place] [address], [place] [address] Apr, [facility] [address] [id number] [address] [place] [address], [place] [address] Apr, [facility] [address] [id number] [address] [place] [address], [place] [address] Apr, [facility] [address] [id number] [address] [place] [address], [place] [address] Apr, [facility] [address] [id number] [address] [place] [address], [place] [address] Apr, [facility] [address] [id number] [address] [place] [address], [place] [address] Apr, [facility] [address] [id number] [address] [place] [address], [place] [address] Apr, [facility] [address] [id number] [address] [place] [address], [place] [address] Apr, [facility] [address] [id number] [address] [place] [address], [place] [address] Apr, [facility] [address] [id number] [address] [place] [address], [place] [address] Apr, [facility] [address] [id number] [facility] [place] [address] Apr, [facility] [address] [id number] [facility] [place] [address] Apr, [facility] [address] [id number] [facility] [place] [address] Apr, [facility] [address] [id number] [facility] [place] [address] Mar, [facility] [address] [id number] [facility] [place] [address] Mar, [facility] [address] [id number] [address] [place] [address], [place] [address] Mar, [facility] [address] [id number] [address] [place] [address], [place] [address] Mar, [facility] [address] [id number] [address] [place] [address], [place] [address] Mar, [facility] [address] [id number] [address] [place] [address], [place] [address] Mar, [facility] [address] [id number] [address] [place] [address], [place] [address] Mar, [facility] [address] [id number] [address] [place] [address], [place] [address] Mar, [facility] [address] [id number] [address] [place] [address], [place] [address] Mar, [facility] [address] [id number] [address] [place] [address], [place] [address] Mar, [facility] [address] [id number] [address] [place] [address], [place] [address] Mar, [facility] [address] [id number] [address] [place] [address], [place] [address] Mar, [facility] [address] [id number] [address] [place] [address], [place] [address] Mar, 2013 [facility] [address] [id number] [facility] [place] [address] Mar, 2013 [facility] [address] [id number] [facility] [place] [address] Mar, 2013 [facility] [address] [id number] [facility] [place] [address] Mar, 2013 [facility] [address] [id number] [address] [place] [address], [place] [address] Mar, [facility] [address] [id number] [facility] [place] [address] Mar, [facility] [address] [id number] [address] [place] [address], [place] [address] Feb, [facility] [address] [id number] [address] [place] [address], [place] [address] Feb, [facility] [address] [id number] [address] [place] [address], [place] [address] Feb, [facility] [address] [id number] [address] [place] [address], [place] [address] Feb, [facility] [address] [id number] [address] [place] [address], [place] [address] Feb, [facility] [address] [id number] [address] [place] [address], [place] [address] Feb, [facility] [address] [id number] [address] [place] [address], [place] [address] Feb, [facility] [address] [id number] [address] [place] [address], [place] [address] Feb, [facility] [address] [id number] [address] [place] [address], [place] [address] Feb, [facility] [address] [id number] [address] [place] [address], [place] [address] Feb, [facility] [address] [id number] [facility] [place] [address] Feb, [facility] [address] [id number] [address] [place] [address], [place] [address] Feb, [facility] [address] [id number] [address] [place] [address], [place] [address] Feb, [facility] [address] [id number] [address] [place] [address], [place] [address] Feb, [facility] [address] [id number] [address] [place] [address], [place] [address] January, [facility] [address] [id number] [address] [place] [address], [place] [address] January, [facility] [address] [id number] [address] [place] [address], [place] [address] January, [facility] [address] [id number] [address] [place] [address], [place] [address] January, [facility] [address] [id number] [address] [place] [address], [place] [address] January, [facility] [address] [id number] [address] [place] [address], [place] [address] January, [facility] [address] [id number] [address] [place] [address], [place] [address] January, [facility] [address] [id number] [address] [place] [address], [place] [address] January, [facility] [address] [id number] [address] [place] [address], [place] [address] January, [facility] [address] [id number] [address] [place] [address], [place] [address] January, [facility] [address] [id number] [address] [place] [address], [place] [address] January, [facility] [address] [id number] [address] [place] [address], [place] [address] January, [facility] [address] [id number] [facility] [place] [address] January, [facility] [address] [id number] [address] [place] [address], [place] [address] January, [facility] [address] [id number] [address] [place] [address], [place] [address] Dec, [facility] [address] [id number] [address] [place] [address], [place] [address] Dec, [facility] [address] [id number] [address] [place] [address], [place] [address] Dec, [facility] [address] [id number] [address] [place] [address], [place] [address] Dec, [facility] [address] [id number] [address] [place] [address], [place] [address] Dec, [facility] [address] [id number] [address] [place] [address], [place] [address] Dec, [facility] [address] [id number] [address] [place] [address], [place] [address] Dec, [facility] [address] [id number] [address] [place] [address], [place] [address] Dec, [facility] [address] [id number] [address] [place] [address], [place] [address] Dec, [facility] [address] [id number] [address] [place] [address], [place] [address] Dec, [facility] [address] [id number] [address] [place] [address], [place] [address] Nov, [facility] [address] [id number] [address] [place] [address], [place] [address] Nov, [facility] [address] [id number] [address] [place] [address], [place] [address] Nov, [facility] [address] [id number] [address] [place] [address], [place] [address] Nov, [facility] [address] [id number] [address] [place] [address], [place] [address] 08 Nov, 2013 [facility] [address] [id number] [address] [place] [address], [place] [address] 08 Nov, 2013 [facility] [address] [id number] [address] [place] [address], [place] [address] Nov, [facility] [address] [id number] [address] [place] [address], [place] [address] Nov, [facility] [address] [id number] [address] [place] [address], [place] [address] Nov, [facility] [address] [id number] [address] [place] [address], [place] [address] Nov, [facility] [address] [id number] [address] [place] [address], [place] [address] Oct, [facility] [address] [id number] [address] [place] [address], [place] [address] Oct, [facility] [address] [id number] [address] [place] [address], [place] [address] Oct, [facility] [address] [id number] [address] [place] [address], [place] [address] Oct, [facility] [address] [id number] [address] [place] [address], [place] [address] 20 Oct, 2013 [facility] [address] [id number] [address] [place] [address], [place] [address] Oct, [facility] [address] [id number] [address] [place] [address], [place] [address] 14 Oct, 2013 [facility] [address] [id number] [address] [place] [address], [place] [address] 14 Oct, 2013 [facility] [address] [id number] [address] [place] [address], [place] [address] 05 Oct, 2013 [facility] [address] [id number] [address] [place] [address], [place] [address] Oct, [facility] [address] [id number] [address] [place] [address], [place] [address] Oct, [facility] [address] [id number] [address] [place] [address], [place] [address] Oct, [facility] [address] [id number] [address] [place] [address], [place] [address] Oct, [facility] [address] [id number] [address] [place] [address], [place] [address] Oct, [facility] [address] [id number] [address] [place] [address], [place] [address] Sep, [facility] [address] [id number] [address] [place] [address], [place] [address] Sep, [facility] [address] [id number] [address] [place] [address], [place] [address] Sep, [facility] [address] [id number] [address] [place] [address], [place] [address] Sep, [facility] [address] [id number] [address] [place] [address], [place] [address] Sep, [facility] [address] [id number] [address] [place] [address], [place] [address] Sep, [facility] [address] [id number] [address] [place] [address], [place] [address] Sep, [facility] [address] [id number] [address] [place] [address], [place] [address] Sep, [facility] [address] [id number] [address] [place] [address], [place] [address] Sep, [facility] [address] [id number] [address] [place] [address], [place] [address] Sep, [facility] [address] [id number] [address] [place] [address], [place] [address] 10 Aug, 2013 [facility] [address] [id number] [address] [place] [address], [place] [address] Aug, [facility] [address] [id number] [address] [place] [address], [place] [address] Jul, [facility] [address] [id number] [address] [place] [address], [place] [address] Jul, [facility] [address] [id number] [address] [place] [address], [place] [address] Jul, [facility] [address] [id number] [address] [place] [address], [place] [address] Jul, [facility] [address] [id number] [address] [place] [address], [place] [address] Jul, [facility] [address] [id number] [address] [place] [address], [place] [address] Jul, [facility] [address] [id number] [address] [place] [address], [place] [address] Jul, [facility] [address] [id number] [address] [place] [address], [place] [address] Jul, [facility] [address] [id number] [address] [place] [address], [place] [address] Jul, [facility] [address] [id number] [address] [place] [address], [place] [address] Jul, [facility] [address] [id number] [address] [place] [address] Jul, [facility] [address] [id number] [address] [place] [address] Jul, [facility] [address] [id number] [address] [place] [address], [place] [address] Jul, [facility] [address] [id number] [address] [place] [address] 05 Jul, 2013 [facility] [address] [id number] [address] [place] [address], [place] [address] Jul, 2012 [facility] [address] [id number] [address] [place] [address], [place] [address] Jul, 2012 [facility] [address] [id number] [address] [place] [address], [place] [address] Jul, 2012 [facility] [address] [id number] [address] [place] [address], [place] [address] Jul, 2012 [facility] [address] [id number] [address] [place] [address], [place] [address] Jul, 2012 [facility] [address] [id number] [address] [place] [address], [place] [address] Jun, 2012 [facility] [address] [id number] [address] [place] [address], [place] [address] Jun, 2012 [facility] [address] [id number] [address] [place] [address], [place] [address] Jun, [facility] [address] [id number] [address] [place] [address], [place] [address] Jun, [facility] [address] [id number] [address] [place] [address], [place] [address] Jun, 2012 [facility] [address] [id number] [address] [place] [address], [place] [address] Jun, [facility] [address] [id number] [address] [place] [address], [place] [address] Jun, [facility] [address] [id number] [address] [place] [address], [place] [address] Jun, [facility] [address] [id number] [address] [place] [address], [place] [address] Jun, [facility] [address] [id number] [address] [place] [address] Jun, [facility] [address] [id number] [address] [place] [address] Jun, [facility] [address] [id number] [address] [place] [address], [place] [address] May, 2012 [facility] [address] [id number] [address] [place] [address], [place] [address] May, [facility] [address] [id number] [address] [place] [address], [place] [address] May, 2012 [facility] [address] [id number] [address] [place] [address], [place] [address] 17 May, 2012 [facility] [address] [id number] [address] [place] [address], [place] [address] May, [facility] [address] [id number] [address] [place] [address], [place] [address] May, [facility] [address] [id number] [address] [place] [address], [place] [address] May, [facility] [address] [id number] [address] [place] [address], [place] [address] May, [facility] [address] [id number] [address] [place] [address], [place] [address] Apr, [facility] [address] [id number] [address] [place] [address], [place] [address] Apr, [facility] [address] [id number] [address] [place] [address], [place] [address] Apr, [facility] [address] [id number] [address] [place] [address], [place] [address] Apr, [facility] [address] [id number] [address] [place] [address], [place] [address] Apr, [facility] [address] [id number] [address] [place] [address], [place] [address] Mar, [facility] [address] [id number] [address] [place] [address], [place] [address] Mar, [facility] [address] [id number] [address] [place] [address], [place] [address] Mar, [facility] [address] [id number] [address] [place] [address], [place] [address] Mar, [facility] [address] [id number] [address] [place] [address], [place] [address] Mar, [facility] [address] [id number] [address] [place] [address], [place] [address] Mar, [facility] [address] [id number] [address] [place] [address], [place] [address] Mar, [facility] [address] [id number] [address] [place] [address], [place] [address] Mar, [facility] [address] [id number] [address] [place] [address], [place] [address] Feb, [facility] [address] [id number] [address] [place] [address], [place] [address] Feb, [facility] [address] [id number] [address] [place] [address], [place] [address] January, [facility] [address] [id number] [address] [place] [address], [place] [address] January, [facility] [address] [id number] [address] [place] [address], [place] [address] Dec, [facility] [address] [id number] [address] [place] [address], [place] [address] Dec, [facility] [address] [id number] [address] [place] [address], [place] [address] Nov, [facility] [address] [id number] [address] [place] [address], [place] [address] Nov, [facility] [address] [id number] [address] [place] [address], [place] [address] Nov, [facility] [address] [id number] [address] [place] [address], [place] [address] Nov, [facility] [address] [id number] [address] [place] [address], [place] [address] Oct, [facility] [address] [id number] [address] [place] [address], [place] [address] Oct, [facility] [address] [id number] [address] [place] [address], [place] [address] Oct, [facility] [address] [id number] [address] [place] [address], [place] [address] Oct, [facility] [address] [id number] [address] [place] [address], [place] [address] 16 Oct, 2012 [facility] [address] [id number] [address] [place] [address], [place] [address] 14 Oct, 2012 [facility] [address] [id number] [address] [place] [address], [place] [address] 08 Oct, 2012 [facility] [address] [id number] [address] [place] [address], [place] [address] 07 Oct, 2012 [facility] [address] [id number] [address] [place] [address], [place] [address] 03 Oct, 2012 [facility] [address] [id number] [address] [place] [address], [place] [address] Sep, [facility] [address] [id number] [address] [place] [address], [place] [address] Sep, [facility] [address] [id number] [address] [place] [address], [place] [address] Sep, [facility] [address] [id number] [address] [place] [address], [place] [address] Sep, [facility] [address] [id number] [address] [place] [address], [place] [address] Sep, [facility] [address] [id number] [address] [place] [address], [place] [address] Sep, [facility] [address] [id number] [address] [place] [address], [place] [address] Sep, [facility] [address] [id number] [address] [place] [address], [place] [address] Sep, [facility] [address] [id number] [address] [place] [address], [place] [address] Aug, [facility] [address] [id number] [address] [place] [address], [place] [address] Aug, [facility] [address] [id number] [address] [place] [address], [place] [address] Aug, [facility] [address] [id number] [address] [place] [address], [place] [address] Aug, [facility] [address] [id number] [address] [place] [address], [place] [address] Aug, [facility] [address] [id number] [address] [place] [address], [place] [address] Aug, [facility] [address] [id number] [address] [place] [address], [place] [address] Aug, [facility] [address] [id number] [address] [place] [address], [place] [address] Aug, [facility] [address] [id number] [address] [place] [address], [place] [address] Jul, [facility] [address] [id number] [address] [place] [address], [place] [address] Jul, [facility] [address] [id number] [address] [place] [address], [place] [address] Jul, [facility] [address] [id number] [address] [place] [address], [place] [address] Jul, [facility] [address] [id number] [address] [place] [address], [place] [address] Jul, [facility] [address] [id number] [address] [place] [address], [place] [address] Jul, [facility] [address] [id number] [address] [place] [address], [place] [address] Jun, [facility] [address] [id number] [address] [place] [address], [place] [address] Jun, [facility] [address] [id number] [address] [place] [address], [place] [address] Jun, [facility] [address] [id number] [address] [place] [address], [place] [address] Jun, [facility] [address] [id number] [address] [place] [address], [place] [address] Jun, [facility] [address] [id number] [address] [place] [address], [place] [address] Jun, [facility] [address] [id number] [address] [place] [address], [place] [address] Jun, [facility] [address] [id number] [address] [place] [address], [place] [address] Jun, [facility] [address] [id number] [address] [place] [address], [place] [address] Jun, [facility] [address] [id number] [address] [place] [address], [place] [address] May, [facility] [address] [id number] [address] [place] [address], [place] [address] 24 May, 2012 [facility] [address] [id number] [address] [place] [address] 18 May, 2012 [facility] [address] [id number] [address] [place] [address], [place] [address] Apr, [facility] [address] [id number] [address] [place] [address], [place] [address] Apr, [facility] [address] [id number] [address] [place] [address] Apr, [facility] [address] [id number] [address] [place] [address] Apr, [facility] [address] [id number] [address] [place] [address], [place] [address] Apr, [facility] [address] [id number] [address] [place] [address], [place] [id number] Apr, [facility] [address] [id number] [address] [place] [address], [place] [address] Mar, [facility] [address] [id number] [address] [place] [address], [place] [address] Mar, [facility] [address] [id number] [address] [place] [address], [place] [address] Mar, [facility] [address] [id number] [address] [place] [address], [place] [address] Mar, [facility] [address] [id number] [address] [place] [address], [place] [address] Feb, [facility] [address] [id number] [address] [place] [address], [place] [address] Feb, [facility] [address] [id number] [address] [place] [address], [place] [address] Feb, [facility] [address] [id number] [address] [place] [address], [place] [address] Feb, [facility] [address] [id number] [address] [place] [address], [place] [address] Feb, [facility] [address] [id number] [address] [place] [address], [place] [address] January, [facility] [address] [id number] [address] [place] [address], [place] [address] January, [facility] [address] [id number] [address] [place] [address], [place] [address] January, [facility] [address] [id number] [address] [place] [address], [place] [address] January, [facility] [address] [id number] [address] [place] [address], [place] [address] January, [facility] [address] [id number] [address] [place] [address], [place] [address] January, [facility] [address] [id number] [address] [place] [address], [place] [address] Dec, [facility] [address] [id number] [address] [place] [address], [place] [address] Dec, [facility] [address] [id number] [address] [place] [address], [place] [address] Dec, [facility] [address] [id number] [address] [place] [address], [place] [address] Dec, [facility] [address] [id number] [address] [place] [address], [place] [address] Dec, [facility] [address] [id number] [address] [place] [address], [place] [address] Nov, [facility] [address] [id number] [address] [place] [address], [place] [address] 14 Nov, 2011 [facility] [address] [id number] [address] [place] [address], [place] [address] Nov, [facility] [address] [id number] [address] [place] [address], [place] [address] Nov, [facility] [address] [id number] [address] [place] [address], [place] [address] 29 Oct, 2011 [facility] [address] [id number] [address] [place] [address], [place] [address] Oct, [facility] [address] [id number] [address] [place] [address], [place] [address] 24 Oct, 2011 [facility] [address] [id number] [address] [place] [address], [place] [address] 13 Oct, 2011 [facility] [address] [id number] [address] [place] [address], [place] [address] Oct, [facility] [address] [id number] [address] [place] [address], [place] [address] Sep, [facility] [address] [id number] [address] [place] [address], [place] [address] Sep, [facility] [address] [id number] [address] [place] [address], [place] [address] Sep, [facility] [address] [id number] [address] [place] [address] Sep, [facility] [address] [id number] [address] [place] [address], [place] [address] Sep, [facility] [address] [id number] [address] [place] [address], [place] [address] Sep, [facility] [address] [id number] [address] [place] [address], [place] [address] Aug, [facility] [address] [id number] [address] [place] [address], [place] [address] Aug, [facility] [address] [id number] [address] [place] [address], [place] [address] Aug, [facility] [address] [id number] [address] [place] [address], [place] [address] Jul, [facility] [address] [id number] [address] [place] [address] Jul, [facility] [address] [id number] [address] [place] [address] Jul, [facility] [address] [id number] [address] [place] [address], [place] [address] Jul, [facility] [address] [id number] [address] [place] [address], [place] [address] Jun, [facility] [address] [id number] [address] [place] [address], [place] [address] Jun, [facility] [address] [id number] [address] [place] [address], [place] [address] 18 Jun, 2011 [facility] [address] [id number] [address] [place] [address], [place] [address] 10 Jun, 2011 [facility] [address] [id number] [address] [place] [address], [place] [address] 10 Jun, 2011 [facility] [address] [id number] [address] [place] [address], [place] [address] 10 Jun, 2011 [facility] [address] [id number] [address] [place] [address], [place] [address] 11 Mar, 2011 [facility] [address] [id number] [address] [place] [address], [place] [address] 18 Dec, 2010 [facility] [address] [id number] [address] [place] [address], [place] [address] 11 Dec, 2010 [facility] [address] [id number] [address] [place] [address], [place] [address] 18 Nov, 2010 [facility] [address] [id number] [address] [place] [address], [place] [address] 16 Nov, 2010 [facility] [address] [id number] [address] [place] [address], [place] [address] 10 Sep, 2010 [facility] [address] [id number] [address] [place] [address], [place] [address] 31 Aug, 2010 [facility] [address] [id number] [address] [place] [address], [place] [address] 29 Aug, 2010 [facility] [address] [id number] [address] [place] [address], [place] [address] 29 Aug, 2010 [facility] [address] [id number] [address] [place] [address], [place] [address] 29 Aug, 2010 [facility] [address] [id number] [address] [place] [address], [place] [address] 27 Aug, 2010 [facility] [address] [id number] [address] [place] [address], [place] [address] 14 Aug, 2010 [facility] [address] [id number] [address] [place] [address], [place] [address] 08 Aug, 2010 [facility] [address] [id number] [address] [place] [address], [place] [address] 08 Aug, 2010 [facility] [address] [id number] [address] [place] [address], [place] [address] 07 Aug, 2010 [facility] [address] [id number] [address] [place] [address], [place] [address] Aug, [facility] [address] [id number] [address] [place] [address], [place] [address] Aug, [facility] [address] [id number] [address] [place] [address], [place] [address] Aug, [facility] [address] [id number] [address] [place] [address] Jul, [facility] [address] [id number] [address] [place] [address] Jul, [facility] [address] [id number] [address] [place] [address], [place] [address] Jul, [facility] [address] [id number] [address] [place] [address] Jul, [facility] [address] [id number] [address] [place] [address] Jul, [facility] [address] [id number] [address] [place] [address] Jul, [facility] [address] [id number] [address] [place] [address] Jun, [facility] [address] [id number] [address] [place] [address] Jun, [facility] [address] [id number] [address] [place] [address] Jun, [facility] [address] [id number] [address] [place] [address] 13 Jun, 2010 [facility] [address] [id number] [address] [place] [address], [place] [address] 16 Apr, 2010 [facility] [address] [id number] [address] [place] [address] 20 Mar, 2010 [facility] [address] [id number] [address] [place] [address], [place] [address] 17 Feb, 2010 [facility] [address] [id number] [address] [place] [address], [place] [address] 11 Jan, 2010 [facility] [address] [id number] [address] [place] [address], [place] [address] 15 Dec, 2009 [facility] [address] [id number] [address] [place] [address], [place] [address] Nov, [facility] [address] [id number] [address] [place] [address] 31 Aug, 2009 [facility] [address] [id number] [address] [place] [address], [place] [address] Aug, [facility] [address] [id number] [address] [place] [address] Aug, [facility] [address] [id number] [address] [place] [address] Jul, [facility] [address] [id number] [address] [place] [address] Jul, [facility] [address] [id number] [address] [place] [address] Jul, [facility] [address] [id number] [address] [place] [address] 30 Jun, 2009 [facility] [address] [id number] [address] [place] [address] 29 Jun, 2009 [facility] [address] [id number] [address] [place] [address] 26 Jun, 2009 [facility] [address] [facility] [id number] [address] [place] [address] Jun, [facility] [address] [facility] [id number] [address] [place] [address] Jun, [facility] [address] [id number] [address] [place] [address] Jun, [facility] [address] [facility] [id number] [address] [place] [address] Apr, [facility] [address] [facility] [id number] [address] [place] [address] Apr, [facility] [address] [facility] [id number] [address] [place] [address] Feb, [facility] [address] [facility] [id number] [address] [place] [address] January, [facility] [address] [facility] [id number] [address] [place] [address] Dec, IMMUNIZATIONS No Known Immunizations SOCIAL HISTORY [...] Medical History skin cancer-basal cell R sabianism (removed ) Medical History Arthritis Medical History [...] to urinate 09/16/15 Hospitalization History [facility] 1999's Hospitalization History hyperkalemia 10/2017 Hospitalization History fluid in lung
--- OUTSIDE RECORDS SUMMARY | 2020-03-01 17:47 | XMS REPORT ---
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 Role Phone Migration, Doctor Unavailable Unavailable PROBLEMS Type Condition ICD9-CM Code XTW99-YG Code Onset Dates Condition S tatus SNOMED Code Problem Leukocytosis D72.829 Active 5568787 06 Problem Bipolar I disorder, most recent episode (or curr ent) mixed, moderate F31.62 Active 98316127 Problem Reactive airway disease J45.909 Active 895629740055 Problem Anxiety F41.9 Active 95154948 Problem Insomnia, unspecified type G47.00 Act sharon 502432950 Problem Essential hypertension I10 Active 52395713 Problem Morbid obesity E66.01 Active 77946 6002 Problem Skin cancer C44.90 Active 87460290 7 Problem DM neuro manif type II E11.49 Active 24397625 Problem Mild cognitive impairment G31.84 Acti ve 060095200 Problem Benign prostatic hyperplasia with lower urinary tract symptoms, unspecified morphology N40.1 Active 85879 6007 Problem Chronic pain G89.29 Active 2876637 1 Problem Diabetes E11.9 Active 40513588 Problem Retinal edema H35.81 Active 532648 6 Problem Anemia of chronic illness D63.8 Acti ve 051167436 Problem Falling R29.6 Active 866514801 Problem Pressure ulcer of other site, stage 3 L89.893 Active 911082141 Problem 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 Active 989250948 Problem Eye exam abnormal R93.8 Active 16 8753700 Problem Pure hypercholesterolemia E78.00 Acti ve 181335325 Problem Dysuria R30.0 Active 79477020 Problem Bipolar disorder, in partial remission, most rec ent episode depressed F31.75 Active 85640151 Problem Hypokalemia E87.6 Active 48998544 Problem Other iron deficiency anemia D50.8 A ctive 07394314 Problem Eustachian tube dysfunction, unspecified laterality H69.80 Active 68326148 Problem Primary osteoarthritis of right knee M17.11 Active 199161036832832 Problem Cough R05 Active 57597236 Problem Bipolar disorder F31.9 Active 137 35040 Problem Chronic diastolic (congestive) heart failure I50.3 2 Active 267368497 Problem Psychophysiological insomnia F51.04 A ctive 841677737 Problem Gastroesophageal reflux disease without esophagitis K21.9 Active 114849397 Problem Polyneuropathy associated with underlying disease G63 Active 303598743 Problem Other secondary acute gout, 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 0 Active 933808282 Problem Diabetic polyneuropathy associated with type 2 d iabetes mellitus E11.42 Active 61130535 Problem Chronic lymphocytic leukemia C91.10 A ctive 83591944 Problem Bilateral primary osteoarthritis of knee M17.0 Active 814362388 Problem Type 2 diabetes mellitus with diabetic neuropathy, uns pecified E11.40 Active 51057354 Problem MCC (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 Z79.4 Active 023020325 Problem Lymphocytosis D72.820 Active 389821 09 Problem Mood disorder F39 Active 108469 05 Problem Bipolar I disorder, most recent episode depressed, moderat e F31.32 Active 867253039 ALLERGIES No Information ENCOUNTERS Encounter Location Date Diagnosis [facility] [address] [facility] [id number] [address] [place] [phone] January, Chronic pain G89.29 [facility] [address] [facility] [id number] [address] [place] [phone] Dec, [facility] [address] [facility] [id number] [address] [place] [phone] Dec, Chronic pain G89.29 [facility] [address] [facility] [id number] [address] [place] [phone] Dec, [facility] [address] [facility] [id number] [address] [place] [phone] Dec, [facility] [address] [facility] [id number] [address] [place] [phone] Dec, Gastroesophageal reflux dise ase without esophagitis K21.9 and Pure hypercholesterolemia E78.00 [facility] [address] [facility] [id number] [address] [place] [phone] Dec, Mood disorder F39 [facility] [address] [id number] [address] [place] [phone] 31 Nov, 2019 Other secondary acute gout, 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 [facility] [address] [id number] [address] [place] [phone] Nov, Gastroesophageal reflux dise ase without esophagitis K21.9 [facility] [address] [facility] [id number] [address] [place] [phone] Nov, Chronic pain G89.29 [facility] [address] [id number] [address] [place] [phone] Nov, Bipolar I disorder, most rec ent episode depressed, moderate F31.32 ; Anxiety F41.9 and Mild cognitive impairment G31.84 [facility] [address] [facility] [id number] [address] [place] [id number] Nov, [facility] [address] [facility] [id number] [address] [place] [phone] Nov, Syncope, unspecified syncope type R55 [facility] [address] [id number] [address] [place] [phone] Nov, Mood disorder F39 [facility] [address] [facility] [id number] [address] [place] [phone] 24 Oct, 2019 Chronic pain G89.29 [facility] [address] [facility] [id number] [address] [place] [phone] Oct, [facility] [address] [id number] [address] [place] [phone] Oct, Mood disorder F39 [facility] [address] [facility] [id number] [address] [place] [phone] Oct, [facility] [address] [facility] [id number] [address] [place] [phone] Oct, Bipolar disorder, in partial remission, most recent episode depressed F31.75 and Mild cognitive impairment G31.84 [facility] [address] [id number] [address] [place] [phone] Oct, Mood disorder F39 [facility] [address] [id number] [address] [place] [phone] Sep, [facility] [address] [id number] [address] [place] [phone] Sep, Mood disorder F39 [facility] [address] [id number] [address] [place] [phone] Sep, Bipolar disorder, in partial remission, most recent episode depressed F31.75 and Mild cognitive impairment G31.84 [facility] [address] [id number] [address] [place] [phone] Sep, Mood disorder F39 [facility] [address] [id number] [address] [place] [phone] Sep, [facility] [address] [id number] [address] [place] [phone] Sep, Mood disorder F39 [facility] [address] [id number] [address] [place] [phone] Sep, [facility] [address] [id number] [address] [place] [phone] Aug, Mood disorder F39 [facility] [address] [id number] [address] [place] [phone] Aug, [facility] [address] [id number] [address] [place] [phone] Aug, [facility] [address] [id number] [address] [place] [phone] Aug, [facility] [address] [id number] [address] [place] [phone] Aug, [facility] [address] [id number] [address] [place] [phone] Aug, [facility] [address] [id number] [address] [place] [phone] Aug, [facility] [address] [id number] [address] [place] [phone] Aug, [facility] [address] [id number] [address] [place] [phone] Aug, Essential hypertension I10 [facility] [address] [id number] [address] [place] [phone] Aug, Bipolar disorder, in partial remission, most recent episode depressed F31.75 and Mild cognitive impairment G31.84 [facility] [address] [id number] [address] [place] [phone] Aug, Mood disorder F39 [facility] [address] [id number] [address] [place] [phone] Aug, [facility] [address] [id number] [address] [place] [phone] Aug, Bipolar disorder, in partial remission, most recent episode depressed F31.75 and Mild cognitive impairment G31.84 [facility] [address] [id number] [address] [place] [phone] Jul, Bipolar disorder, in partial remission, most recent episode depressed F31.75 and Mild cognitive impairment G31.84 [facility] [address] [id number] [address] [place] [phone] Jul, Psychophysiological insomnia F51.04 [facility] [address] [id number] [address] [place] [phone] Jul, [facility] [address] [id number] [address] [place] [id number] Jul, [facility] [address] [id number] [address] [place] [phone] Jul, [facility] [address] [id number] [address] [place] [id number] Jul, [facility] [address] [id number] [address] [place] [phone] Jul, [place] [address] [facility] [id number] [address] [place] [phone] Jul, [place] [address] [facility] [id number] [address] [place] [id number] Jul, Bipolar disorder, in partial remission, most recent episode depressed F31.75 and Mild cognitive impairment G31.84 [place] [address] [place] [id number] [address] [place] [id number] Jul, Chronic pain G89.29 ; Diabet es E11.9 ; Essential hypertension I10 ; Ill feeling R68.89 ; Local infection of the skin and subcutaneous tissue, unspecified L08.9 and Other injury of unspecified body region, initial encounter T14.8XXA [place] [address] [place] [id number] [address] [place] [phone] Jun, Bipolar disorder, in partial remission, most recent episode depressed F31.75 and Mild cognitive impairment G31.84 [place] [address] [facility] [id number] [address] [place] [phone] Jun, [place] [address] [facility] [id number] [address] [place] [phone] Jun, Bipolar disorder, in partial remission, most recent episode depressed F31.75 and Mild cognitive impairment G31.84 [place] [address] [place] [id number] [address] [place] [phone] Jun, Psychophysiological insomnia F51.04 [place] [address] [facility] [id number] [address] [place] [phone] Jun, Psychophysiological insomnia F51.04 ; Chronic pain G89.29 ; Bipolar I disorder, most recent episode (or current) mixed, moderate F31.62 ; 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 ; Polyneuropathy associated with underlying disease G63 ; Type 2 diabetes mellitus with diabetic neuropathy, unspecified E11.40 ; 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 and Hyperglycemia R73.9 [place] [address] [id number] [address] [place] [phone] Jun, Bipolar disorder, in partial remission, most recent episode depressed F31.75 and Mild cognitive impairment G31.84 [facility] [address] [id number] [address] [place] [phone] Jun, [facility] [address] [id number] [address] [place] [phone] Jun, Bipolar disorder F31.9 [facility] [address] [id number] [address] [place] [phone] May, Bipolar disorder, in partial remission, most recent episode depressed F31.75 and Mild cognitive impairment G31.84 [facility] [address] [id number] [address] [place] [phone] May, [facility] [address] [id number] [address] [place] [phone] Apr, Chronic pain G89.29 and Bipo lar disorder F31.9 [facility] [address] [id number] [address] [place] [phone] Mar, Bipolar disorder F31.9 and C hronic pain G89.29 [facility] [address] [id number] [address] [place] [phone] Feb, Bipolar disorder F31.9 [facility] [address] [id number] [address] [place] [phone] Feb, Cellulitis of right upper ex tremity L03.113 and Skin abrasion T14.8XXA [facility] [address] [id number] [address] [place] [phone] Feb, Bipolar disorder, in partial remission, most recent episode depressed F31.75 and Mild cognitive impairment G31.84 [facility] [address] [id number] [address] [place] [phone] Feb, Chronic pain G89.29 [facility] [address] [id number] [address] [place] [phone] Feb, Bipolar disorder, in partial remission, most recent episode depressed F31.75 and Mild cognitive impairment G31.84 [facility] [address] [id number] [address] [place] [phone] January, Bipolar disorder, in partial remission, most recent episode depressed F31.75 and Mild cognitive impairment G31.84 [facility] [address] [id number] [address] [place] [phone] January, Chronic pain G89.29 and Bipo lar disorder F31.9 [facility] [address] [id number] [address] [place] [phone] January, Bipolar disorder, in partial remission, most recent episode depressed F31.75 and Mild cognitive impairment G31.84 [facility] [address] [id number] [address] [place] [phone] Dec, [facility] [address] [id number] [address] [place] [phone] Dec, Chronic pain G89.29 and Bipo lar disorder F31.9 [facility] [address] [id number] [address] [place] [phone] Dec, Edema of both lower extremit ies R60.0 [facility] [address] [id number] [address] [place] [phone] Dec, Bipolar disorder F31.9 [facility] [address] [id number] [address] [place] [phone] Dec, Bipolar disorder, in partial remission, most recent episode depressed F31.75 and Mild cognitive impairment G31.84 [facility] [address] [id number] [address] [place] [phone] Nov, [facility] [address] [id number] [address] [place] [phone] Nov, Chronic pain G89.29 [facility] [address] [id number] Nov, Bipolar disorder, in partial remission, most recent episode depressed F31.75 and Mild cognitive impairment G31.84 [place] [address] [phone] Nov, Bipolar disorder F31.9 [place] [address] [phone] 04 Nov, 2018 [facility] ; Polyneuropathy associated [...] unspecified morphology N40.1 and Essential hypertension I10 [place] [address] [id number] Oct, Chronic pain G89.[address] [id number] 18 Oct, 2018 Diabetes E11.9 [place] [address] [id number] Oct, Bipolar I disorder, most rec ent episode (or current) mixed, moderate F31.62 and Mild cognitive impairment G31.84 [place] [address] [place] [id number] [address] [place] [phone] Oct, Bipolar I disorder, most rec ent episode (or current) mixed, moderate F31.62 and Mild cognitive impairment G31.84 [place] [address] [place] [id number] [address] [place] [id number] Sep, Bipolar I disorder, most rec ent episode (or current) mixed, moderate F31.62 and Mild cognitive impairment G31.84 [place] [address] [place] [id number] [address] [place] [phone] Sep, [place] [address] [place] [id number] [address] [place] [id number] Sep, Diabetes E11.9 ; Hypoxia R09 .02 ; Hyperglycemia R73.9 ; Therapeutic drug monitoring Z51.81 ; BMI 50.0-59.9, adult Z68.43 and Skin cancer C44.90 [place] [address] [place] [id number] [address] [place] [phone] Sep, Chronic pain G89.29 [place] [address] [place] [id number] [address] [place] [phone] Sep, Bipolar I disorder, most rec ent episode (or current) mixed, moderate F31.62 [place] [address] [place] [id number] [place] [phone] Sep, [place] [address] [place] [id number] [address] [place] [phone] Sep, [place] [address] [place] [id number] [address] [place] [phone] Aug, Chronic pain G89.29 [place] [address] [place] [id number] [address] [place] [phone] Aug, Bipolar I disorder, most rec ent episode (or current) mixed, moderate F31.62 [place] [address] [place] [id number] [address] [place] [phone] Aug, Bipolar I disorder, most rec ent episode (or current) mixed, moderate F31.62 and Mild cognitive impairment G31.84 [place] [address] [place] [id number] [address] [place] [phone] Jul, [place] [address] [place] [id number] [address] [place] [phone] Jul, Chronic pain G89.29 [place] [address] [place] [id number] [address] [place] [id number] Jul, Bipolar I disorder, most rec ent episode (or current) mixed, moderate F31.62 and Mild cognitive impairment G31.84 [facility] [address] [facility] [id number] [address] [place] [phone] Jul, Bipolar I disorder, most rec ent episode (or current) mixed, moderate F31.62 and MCI (mild cognitive impairment) G31.84 [facility] [address] [facility] [id number] [address] [place] [phone] Jul, [facility] [address] [id number] [address] [place] [phone] Jul, [facility] [address] [facility] [id number] [address] [place] [phone] Jul, Bipolar I disorder, most rec ent episode (or current) mixed, moderate F31.62 [place] [address] [facility] [id number] [address] [place] [id number] Jul, Chronic pain G89.29 [place] [address] [id number] [address] [place] [phone] Jun, Bipolar I disorder, most rec ent episode (or current) mixed, moderate F31.62 [place] [address] [facility] [id number] [address] [place] [phone] Jun, Pre-procedure lab exam Z01.8 12 [facility] [address] [facility] [id number] [address] [place] [phone] Jun, [facility] [address] [id number] [id number] Jun, [place] [address] [facility] [id number] [address] [place] [phone] Jun, [facility] [address] [facility] [id number] [address] [place] [phone] Jun, Forgetfulness R68.89 ; Pre-s yncope R55 ; Localized edema R60.0 ; Other iron deficiency anemia D50.8 and BMI 50.0-59.9, adult Z68.43 [facility] [address] [facility] [id number] [address] [place] [phone] Jun, Chronic pain G89.29 [facility] [address] [facility] [id number] [address] [place] [phone] 05 Jun, 2018 Chronic pain G89.29 [facility] [address] [facility] [id number] [address] [place] [phone] Jun, Bipolar I disorder, most rec ent episode (or current) mixed, moderate F31.62 [place] [address] [address] [facility] [id number] [address] [place] [phone] May, Chronic pain G89.29 [place] [address] [address] [facility] [id number] [address] [place] [phone] Apr, [place] [address] [address] [place] [id number] [address] [phone] Apr, Chronic pain G89.29 [facility] [address] [facility] [id number] [address] [place] [phone] Apr, Primary osteoarthritis of ri ght knee M17.11 [place] [address] [address] [facility] [id number] [address] [place] [phone] Mar, [facility] [address] [facility] [id number] [address] [phone] Mar, BMI 50.0-59.9, adult Z68.43 and Bipolar disorder, in partial remission, most recent episode depressed F31.75 [place] [address] [facility] [id number] [address] [place] [phone] Mar, Diabetes E11.9 ; Pure hyperc holesterolemia E78.00 ; Essential hypertension I10 ; Nausea with vomiting, unspecified R11.2 and Headache, unspecified headache type R51 [facility] [address] [facility] [facility] [id number] [address] [place] [phone] Mar, Bipolar I disorder, most rec ent episode (or current) mixed, moderate F31.62 [facility] [address] [id number] [address] [place] [phone] Mar, Bipolar I disorder, most rec ent episode (or current) mixed, moderate F31.62 [facility] [address] [id number] [address] [place] [phone] Mar, Chronic pain G89.29 [facility] [address] [id number] [address] [place] [phone] Mar, Bipolar I disorder, most rec ent episode (or current) mixed, moderate F31.62 [place] [address] [id number] [address] [place] [phone] Feb, Bipolar I disorder, most rec ent episode (or current) mixed, moderate F31.62 [place] [address] [facility] [id number] [address] [place] [phone] Feb, Chronic pain G89.29 [place] [address] [facility] [id number] [address] [place] [phone] Feb, Decubitus ulcer of right josselin t, stage 3 L89.893 and BMI 50.0-59.9, adult Z68.43 [facility] [address] [facility] [id number] [address] [place] [phone] Feb, Bipolar I disorder, most rec ent episode (or current) mixed, moderate F31.62 [place] [address] [facility] [id number] [address] [place] [phone] Feb, [facility] [address] [id number] [address] [place] [phone] January, [facility] [address] [facility] [id number] [address] [place] [phone] January, Chronic pain G89.29 [facility] [address] [id number] [address] [place] [phone] January, Bipolar I disorder, most rec ent episode (or current) mixed, moderate F31.62 [place] [id number] [facility] [id number] [address] [place] [phone] January, Bipolar I disorder, most rec ent episode (or current) mixed, moderate F31.62 [facility] [address] [facility] [id number] [address] [place] [phone] Dec, Bipolar I disorder, most rec ent episode (or current) mixed, moderate F31.62 and BMI 50.0-59.9, adult Z68.43 [place] [address] [facility] [id number] [address] [place] [phone] Dec, Bipolar I disorder, most rec ent episode (or current) mixed, moderate F31.62 [place] [address] [place] [id number] [address] [place] [phone] Dec, Chronic pain G89.29 [place] [address] [place] [id number] [address] [place] [phone] Dec, DM neuro manif type II E11.4 9 ; Right flank pain R10.9 ; [facility] 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 Z79.891 ; Encounter for medication monitoring Z51.81 and BMI 50.0-59.9, adult Z68.43 [place] [address] [place] [id number] [address] [place] [phone] Dec, Bipolar I disorder, most rec ent episode (or current) mixed, moderate F31.62 [place] [address] [place] [id number] [address] [place] [phone] Nov, Bipolar I disorder, most rec ent episode (or current) mixed, moderate F31.62 [place] [address] [facility] [id number] [address] [place] [phone] Nov, Chronic pain G89.29 [place] [address] [facility] [id number] [address] [place] [phone] Nov, Bipolar I disorder, most rec ent episode (or current) mixed, moderate F31.62 [place] [address] [id number] Nov, Hypokalemia E87.6 [place] [address] [id number] Nov, Bipolar I disorder, most rec ent episode (or current) mixed, moderate F31.62 [place] [address] [address] Oct, Chronic pain G89.29 [place] [address] [address] Oct, BMI 50.0-59.9, adult Z68.43 and Bipolar I disorder, most recent episode (or current) mixed, moderate F31.62 [place] [address] [id number] Oct, Bipolar I disorder, most rec ent episode (or current) mixed, moderate F31.62 [place] [address] [address] Oct, [place] [address] [phone] Oct, Hypokalemia E87.6 [place] [address] [address] Oct, DM neuro manif type II E11.4 9 [place] [address] [address] Oct, Bipolar I disorder, most rec ent episode (or current) mixed, moderate F31.62 [place] [address] [address] Oct, Bipolar I disorder, most rec ent episode (or current) mixed, moderate F31.62 [place] [address] [address] 14 Oct, 2017 Hyperkalemia E87.5 ; Falling R29.6 ; BMI 50.0-59.9, adult Z68.43 and Acute left ankle pain M25.572 [place] [id number] [phone] 08 Oct, 2017 DM neuro manif type II E11.4 9 [place] [address] [place] [id number] [address] [place] [phone] Oct, [place] [address] [address] Sep, Chronic pain G89.29 [place] [address] [place] [id number] [address] [place] [phone] Sep, [place] [address] [address] Sep, Bilateral primary osteoarthr itis of knee M17.0 [place] [address] [address] Sep, Generalized edema R60.1 [place] [address] [address] 16 Sep, 2017 Bipolar I disorder, most rec ent episode (or current) mixed, moderate F31.62 [place] [address] [address] 15 Sep, 2017 Hypoxia R09.02 ; Other hyper volemia E87.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 ; Anemia of chronic illness D63.8 and BMI 50.0- 59.9, adult Z68.43 [place] [address] [address] Sep, [place] [address] [address] Sep, Bipolar I disorder, most rec ent episode (or current) mixed, moderate F31.62 [place] [address] [facility] [id number] [address] [place] [phone] Aug, Chronic pain G89.29 [facility] [address] [facility] [id number] [address] [place] [phone] Aug, Generalized edema R60.1 [facility] [address] [facility] [id number] [address] [place] [phone] Aug, [facility] [address] [facility] [id number] [address] [place] [phone] Aug, [facility] [address] [facility] [id number] [address] [place] [phone] 14 Aug, 2017 Bipolar I disorder, most rec ent episode (or current) mixed, moderate F31.62 [place] [address] [facility] [id number] [address] [place] [phone] 07 Aug, 2017 Bipolar I disorder, most rec ent episode (or current) mixed, moderate F31.62 [place] [address] [facility] [id number] [address] [place] [phone] 04 Aug, 2017 Chronic pain G89.29 [place] [address] [facility] [id number] [address] [place] [phone] 30 Jul, 2017 Bipolar I disorder, most rec ent episode (or current) mixed, moderate F31.62 [place] [address] [facility] [id number] [address] [place] [id number] Jul, Bipolar I disorder, most rec ent episode (or current) mixed, moderate F31.62 and BMI 60.0-69.9, adult Z68.44 [facility] [address] [facility] [id number] [address] [place] [phone] 16 Jul, 2017 Bipolar I disorder, most rec ent episode (or current) mixed, moderate F31.62 [place] [address] [facility] [id number] [address] [place] [phone] 06 Jul, 2017 Chronic pain G89.29 [facility] [address] [facility] [id number] [address] [place] [phone] Jul, Bipolar I disorder, most rec ent episode (or current) mixed, moderate F31.62 [facility] [address] [facility] [id number] [address] [place] [phone] Jun, Polyneuropathy associated wi th underlying disease G63 and Diabetes E11.9 [facility] [address] [id number] [address] [place] [phone] Jun, Bipolar I disorder, most rec ent episode (or current) mixed, moderate F31.62 [facility] [address] [id number] [address] [place] [phone] Jun, Chronic pain G89.29 [facility] [address] [facility] [id number] [address] [place] [phone] May, Bipolar I disorder, most rec ent episode (or current) mixed, moderate F31.62 [facility] [address] [facility] [id number] [address] [place] [phone] May, Bipolar I disorder, most rec ent episode (or current) mixed, moderate F31.62 [facility] [address] [id number] [address] [place] [phone] May, Diabetic polyneuropathy asso ciated with type 2 diabetes mellitus E11.42 [facility] [address] [id number] [address] [place] [phone] 18 May, 2017 Bipolar I disorder, most rec ent episode (or current) mixed, moderate F31.62 [facility] [address] [id number] [address] [place] [phone] 13 May, 2017 Bipolar I disorder, most rec ent episode (or current) mixed, moderate F31.62 [facility] [address] [facility] [id number] [address] [place] [phone] May, Chronic pain G89.29 [facility] [address] [facility] [id number] [address] [place] [phone] Apr, Bipolar I disorder, most rec ent episode (or current) mixed, moderate F31.62 [facility] [address] [id number] [address] [place] [phone] Apr, [facility] [address] [id number] [address] [place] [phone] Apr, Chronic pain G89.29 and DM n euro manif type II E11.49 [facility] [address] [id number] [address] [place] [phone] Apr, [facility] [address] [id number] [address] [place] [phone] Apr, Bipolar I disorder, most rec ent episode (or current) mixed, moderate F31.62 [facility] [address] [facility] [id number] [address] [place] [phone] Apr, Chronic pain G89.29 [facility] [address] [facility] [id number] [address] [place] [phone] Apr, Iliotibial band syndrome, le ft M76.32 [facility] [address] [id number] [address] [place] [phone] Apr, Bipolar I disorder, most rec ent episode (or current) mixed, moderate F31.62 [facility] [address] [facility] [id number] [address] [place] [phone] Mar, Bipolar I disorder, most rec ent episode (or current) mixed, moderate F31.62 [facility] [address] [id number] [address] [place] [phone] Mar, Bipolar I disorder, most rec ent episode (or current) mixed, moderate F31.62 [facility] [address] [facility] [id number] [address] [place] [phone] Mar, [facility] [address] [facility] [id number] [address] [place] [phone] Mar, Bipolar I disorder, most rec ent episode (or current) mixed, moderate F31.62 [facility] [address] [facility] [id number] [address] [place] [phone] Mar, Chronic pain G89.29 [facility] [address] [facility] [id number] [address] [place] [phone] Mar, Bipolar I disorder, most rec ent episode (or current) mixed, moderate F31.62 [facility] [address] [facility] [id number] [address] [place] [phone] Mar, Bipolar I disorder, most rec ent episode (or current) mixed, moderate F31.62 [facility] [address] [facility] [id number] [address] [place] [phone] Mar, Acute pain of left knee M25. 562 ; Left hip pain M25.552 ; Generalized edema R60.1 and Tongue swelling R22.0 [facility] [address] [facility] [id number] [address] [place] [phone] Mar, [facility] [address] [place] [id number] [address] [place] [phone] Feb, Chronic pain G89.29 [facility] [address] [facility] [id number] [address] [place] [phone] Feb, Diabetes E11.9 [facility] [address] [facility] [id number] [address] [place] [phone] January, Chronic pain G89.29 [facility] [address] [facility] [id number] [address] [place] [phone] January, [facility] [address] [facility] [id number] [address] [place] [id number] January, Bipolar I disorder, most rec ent episode (or current) mixed, moderate F31.62 [facility] [address] [facility] [id number] [address] [place] [phone] Dec, Bipolar I disorder, most rec ent episode (or current) mixed, moderate F31.62 [facility] [address] [place] [id number] [address] [place] [phone] Dec, Chronic pain G89.29 [facility] [address] [id number] [address] [place] [id number] Dec, Bipolar I disorder, most rec ent episode (or current) mixed, moderate F31.62 [facility] [address] [facility] [id number] [address] [place] [phone] Dec, Diabetes E11.9 ; Essential h ypertension I10 ; Chronic pain G89.29 and Morbid obesity E66.01 [facility] [address] [id number] [address] [place] [phone] Dec, [facility] [address] [facility] [id number] [address] [place] [phone] Dec, Bipolar I disorder, most rec ent episode (or current) mixed, moderate F31.62 [facility] [address] [facility] [id number] [address] [place] [phone] Dec, Bipolar I disorder, most rec ent episode (or current) mixed, moderate F31.62 [facility] [address] [facility] [id number] [address] [place] [phone] Nov, Chronic pain G89.29 [facility] [address] [facility] [id number] [address] [place] [phone] Nov, Bipolar I disorder, most rec ent episode (or current) mixed, moderate F31.62 [facility] [address] [facility] [id number] [address] [place] [phone] Nov, [facility] [address] [id number] [address] [place] [phone] Nov, Bipolar I disorder, most rec ent episode (or current) mixed, moderate F31.62 [facility] [address] [facility] [id number] [address] [phone] Nov, Bipolar I disorder, most rec ent episode (or current) mixed, moderate F31.62 [facility] [address] [facility] [id number] [address] [place] [phone] Nov, [facility] [address] [id number] [address] [place] [phone] Nov, [facility] [address] [id number] [address] [place] [phone] Nov, [facility] [address] [facility] [id number] [address] [place] [phone] Oct, Chronic pain G89.29 [facility] [address] [id number] [address] [phone] Oct, Bipolar I disorder, most rec ent episode (or current) mixed, moderate F31.62 [facility] [address] [id number] [address] [place] [phone] Oct, [facility] [address] [facility] [id number] [address] [place] [phone] Oct, Chronic pain G89.29 ; Diabet es E11.9 ; Anxiety F41.9 and 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 [facility] [address] [id number] [address] [place] [phone] Oct, [facility] [address] [facility] [id number] [address] [place] [phone] Oct, Diabetes E11.9 [facility] [address] [facility] [id number] [address] [phone] Oct, Bipolar I disorder, most rec ent episode (or current) mixed, moderate F31.62 [facility] [address] [id number] [address] [phone] Sep, Chronic pain G89.29 [facility] [address] [facility] [id number] [address] [phone] Sep, Chronic pain G89.29 [facility] [address] [facility] [id number] [address] [place] [phone] Aug, Chronic pain G89.29 [facility] [address] [facility] [id number] [address] [phone] Jul, [facility] [address] [facility] [id number] [address] [place] [phone] Jul, Diabetes E11.9 [facility] [address] [place] [id number] [address] [phone] Jul, Chronic pain G89.29 [facility] [address] [facility] [id number] [address] [phone] Jul, Bipolar I disorder, most rec ent episode (or current) mixed, moderate F31.62 [place] [address] [place] [id number] [place] [phone] Jun, Bipolar I disorder, most rec ent episode (or current) mixed, moderate F31.62 [place] [address] [place] [id number] [address] [phone] Jun, [place] [address] [place] [id number] [address] [place] [phone] Jun, Bipolar I disorder, most rec ent episode (or current) mixed, moderate F31.62 [place] [address] [place] [id number] [address] [phone] May, Insomnia, unspecified type G 47.00 [place] [address] [place] [id number] [address] [place] [phone] May, Bipolar I disorder, most rec ent episode (or current) mixed, moderate F31.62 [place] [address] [place] [id number] [address] [place] [phone] 14 May, 2016 [place] [address] [place] [id number] [place] [phone] May, Bipolar I disorder, most rec ent episode (or current) mixed, moderate F31.62 [place] [address] [place] [id number] [address] [place] [phone] May, Diabetes E11.9 and Essential hypertension I10 [facility] [address] [facility] [id number] [address] [place] [phone] Apr, Chronic pain G89.29 [facility] [address] [facility] [id number] [address] [place] [phone] Apr, Bipolar I disorder, most rec ent episode (or current) mixed, moderate F31.62 [facility] [address] [facility] [id number] [address] [place] [phone] Apr, [facility] [address] [facility] [id number] [address] [place] [phone] Apr, [facility] [address] [facility] [id number] [address] [place] [phone] Mar, Chronic pain G89.29 ; Headac he, unspecified headache type R51 ; Neuropathy G62.9 ; Pain of right hip joint M25.551 and Essential hypertension I10 [facility] [address] [facility] [id number] [address] [place] [phone] Mar, Chronic pain G89.29 [place] [id number] [facility] [id number] [address] [place] [phone] Mar, Bipolar I disorder, most rec ent episode (or current) mixed, moderate F31.62 [place] [address] [place] [id number] [address] [place] [phone] Feb, Bipolar I disorder, most rec ent episode (or current) mixed, moderate F31.62 and Insomnia, unspecified type G47.00 [place] [address] [facility] [id number] [address] [place] [phone] Feb, Chronic pain G89.29 [place] [address] [facility] [id number] [address] [place] [phone] Feb, Bipolar I disorder, most rec ent episode (or current) mixed, moderate F31.62 [place] [address] [facility] [id number] [address] [place] [phone] January, Bipolar I disorder, most rec ent episode (or current) mixed, moderate F31.62 [facility] [address] [id number] [address] [place] [phone] January, Chronic pain G89.29 [facility] [address] [id number] [address] [place] [phone] January, Chronic pain G89.29 and Esse ntial hypertension I10 [facility] [address] [id number] [address] [place] [phone] January, Bipolar I disorder, most rec ent episode (or current) mixed, moderate F31.62 [facility] [address] [id number] [address] [place] [place] [phone] Dec, [facility] [address] [facility] [id number] [address] [place] [phone] Dec, [facility] [address] [id number] [address] [place] [phone] Dec, [facility] [address] [id number] [address] [place] [phone] Dec, [facility] [address] [facility] [id number] [address] [place] [phone] Nov, Reactive airway disease J45. 909 [facility] [address] [id number] [address] [place] [phone] Nov, [facility] [address] [id number] [address] [place] [phone] Nov, [facility] [address] [id number] [address] [place] [phone] Nov, [facility] [address] [id number] [address] [place] [phone] Nov, [facility] [address] [facility] [id number] [address] [place] [phone] Nov, Onychomycosis B35.1 ; Hammer toe M20.40 ; [place] or callus L84 and DM neuro manif type II E11.49 [facility] [address] [facility] [id number] [address] [place] [phone] Nov, Chronic pain G89.29 ; Leukoc ytosis D72.829 and Diabetes E11.9 [place] [id number] [place] [id number] [address] [place] [phone] Nov, [facility] [address] [facility] [id number] [address] [place] [phone] Oct, Bronchitis J40 [place] [address] [place] [id number] [address] [place] [phone] Oct, [place] [address] [place] [address] Oct, [place] [address] [address] Oct, Mastoiditis, unspecified lat erality H70.90 and Type 2 diabetes mellitus with complication E11.8 [place] [id number] [place] [phone] Sep, [place] [address] [address] Sep, Dysuria R30.0 ; Cough R05 ; Benign prostatic hyperplasia with lower urinary tract symptoms, unspecified morphology N40.1 ; Hypokalemia E87.6 and Eustachian tube dysfunction, unspecified laterality H69.80 [place] [address] [place] [id number] [address] [place] [phone] Sep, Moderate mixed bipolar I dis order F31.62 [place] [address] [place] [id number] [address] [place] [phone] Sep, Hypokalemia E87.6 [place] [address] [place] [id number] [address] [place] [phone] Sep, [place] [address] [place] [id number] [address] Sep, Upper respiratory tract infe ction, unspecified type J06.9 [facility] [address] [id number] [address] [place] [phone] Aug, [facility] [address] [facility] [id number] [address] [place] [phone] Aug, Dysuria R30.0 [facility] [address] [id number] [address] [place] [phone] Aug, [facility] [address] [id number] [address] [place] [id number] Jul, [facility] [address] [facility] [id number] [address] [place] [phone] Jul, [facility] [address] [id number] [address] [place] [phone] Jul, [facility] [address] [facility] [id number] [address] [place] [phone] Jul, [facility] [address] [id number] [address] [place] [phone] Jun, [facility] [address] [facility] [id number] [address] [place] [phone] Jun, [facility] [address] [facility] [id number] [address] [place] [phone] Jun, [facility] [address] [facility] [id number] [address] [place] [phone] 29 May, 2015 [facility] [address] [id number] [address] [place] [phone] 25 May, 2015 Bipolar I disorder, most rec ent episode (or current) mixed, moderate 296.62 [facility] [address] [id number] [address] [place] [phone] 16 May, 2015 [facility] [address] [facility] [id number] [address] [place] [phone] May, Bipolar I disorder, most rec ent episode (or current) mixed, moderate 296.62 and Major depressive disorder, recurrent episode, severe, specified as with psychotic behavior 296.34 [facility] [address] [id number] [address] [place] [phone] May, Bipolar I disorder, most rec ent episode (or current) mixed, moderate 296.62 [facility] [address] [facility] [id number] [address] [place] [phone] May, [facility] [address] [facility] [id number] [address] [place] [phone] Apr, [facility] [address] [facility] [id number] [address] [place] [phone] Apr, [facility] [address] [place] [id number] [address] [place] [phone] Apr, Unspecified disorder of kidn ey and ureter 593.9 and Diabetes mellitus type 2, uncontrolled 250.02 [facility] [address] [facility] [id number] [address] [place] [phone] Apr, [facility] [address] [facility] [id number] [address] [place] [phone] Apr, [facility] [address] [facility] [id number] [address] [place] [phone] Apr, [facility] [address] [facility] [id number] [address] [place] [phone] Apr, [facility] [address] [facility] [id number] [address] [place] [phone] Apr, Diabetes mellitus type II, u ncontrolled 250.02 [facility] [address] [facility] [id number] [address] [place] [phone] Apr, [facility] [address] [facility] [id number] [address] [place] [phone] Mar, [facility] [address] [facility] [id number] [address] [place] [phone] Mar, [facility] [address] [place] [id number] [address] [place] [phone] Mar, [facility] [address] [place] [id number] [address] [place] [phone] Mar, Major depressive disorder, r ecurrent episode, severe, specified as with psychotic behavior 296.34 and Bipolar I disorder, most recent episode (or current) mixed, moderate 296.62 [facility] [id number] [place] [phone] Mar, Diabetes 250.00 ; Anuria 788 .5 ; Nausea and vomiting 787.01 and Diarrhea 787.91 [facility] [address] [place] [id number] [address] [place] [phone] Mar, Diabetes 250.00 [facility] [address] [place] [id number] [address] [place] [phone] Mar, [facility] [address] [place] [id number] [address] [place] [phone] Mar, Diabetes 250.00 [facility] [address] [place] [id number] [address] [place] [phone] Mar, [facility] [address] [place] [id number] [address] [place] [phone] Mar, [facility] [address] [place] [phone] Mar, [facility] [address] [place] [id number] [address] [place] [phone] Mar, [facility] [address] [place] [id number] [address] [place] [phone] Mar, Bipolar I disorder, most rec ent episode (or current) mixed, moderate 296.62 and Major depressive disorder, recurrent episode, severe, specified as with psychotic behavior 296.34 [facility] [address] [place] [id number] [address] [place] [phone] Mar, Magnesium deficiency 275.2 ; Hypokalemia 276.8 ; Nausea & vomiting 787.01 and Diabetes mellitus type 2, uncontrolled 250.02 [place] [address] [address] Feb, [place] [address] [address] Feb, Bipolar I disorder, most rec ent episode (or current) mixed, moderate 296.62 [place] [address] [address] Feb, Nausea and vomiting 787.01 ; Left elbow pain 719.42 ; Anuria 788.5 and Diabetes 250.00 [place] [address] [address] Feb, [address] [address] Feb, Hypopotassemia 276.8 and Hyp okalemia 276.[address] [address] Feb, Hypopotassemia 276.8 and Hyp okalemia 276.8 [place] [address] [id number] Feb, Seborrheic keratoses 702.[address] [address] Feb, Hypopotassemia 276.8 and Low magnesium levels 275.2 [place] [address] [address] January, [place] [address] [address] January, [place] [address] [address] January, [place] [address] [address] January, Scalp lesion 709.9 [facility] [address] [id number] [address] [place] [phone] January, [facility] [address] [id number] [address] [place] [phone] Dec, Tear of medial cartilage or meniscus of knee, current 836.0 and 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 [facility] [address] [id number] [address] [place] [phone] Dec, [facility] [address] [id number] [address] [place] [phone] Dec, 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 [address] [id number] [address] [place] [phone] Nov, [facility] [address] [id number] [address] [place] [phone] Nov, [facility] [address] [id number] [address] [place] [phone] Nov, [facility] [address] [id number] [address] [place] [phone] Nov, [facility] [address] [id number] [address] [place] [phone] Nov, [facility] [address] [id number] [address] [place] [phone] Nov, [facility] [address] [id number] [address] [place] [phone] Nov, [facility] [address] [id number] [address] [place] [address], [place] [address] Nov, [facility] [place] [facility] [address] [id number] [address] [place] [address], [place] [address] Nov, [facility] [place] [facility] [address] [id number] [address] [place] [address], [place] [address] Nov, [facility] [place] [facility] [address] [id number] [address] [place] [address], [place] [address] Nov, [facility] [place] [facility] [address] [id number] [address] [place] [address], [place] [address] Nov, [facility] [place] [facility] [address] [id number] [address] [place] [address], [place] [address] Oct, 2014 [facility] [place] [facility] [address] [id number] [address] [place] [address], [place] [address] Oct, 2014 [facility] [place] [facility] [address] [id number] [address] [place] [address], [place] [address] Oct, 2014 [facility] [place] [facility] [address] [id number] [address] [place] [address], [place] [address] Oct, 2014 [facility] [place] [facility] [address] [id number] [address] [place] [address], [place] [address] Oct, 2014 [facility] [place] [facility] [address] [id number] [address] [place] [address], [place] [address] Oct, 2014 [facility] [place] [facility] [address] [id number] [address] [place] [phone] Oct, 2014 [facility] [place] [facility] [address] [id number] [address] [place] [address], [place] [address] Oct, 2014 [facility] [place] [facility] [address] [id number] [address] [place] [phone] Oct, 2014 [facility] [place] [facility] [address] [id number] [address] [place] [address], [place] [address] Sep, [facility] [place] [facility] [address] [id number] [address] [place] [address], [place] [address] Sep, [facility] [address] [id number] [address] [place] [address], [place] [address] Sep, [facility] [address] [id number] [address] [place] [address], [place] [address] Sep, [facility] [address] [id number] [address] [place] [address], [place] [address] Sep, [facility] [address] [id number] [address] [place] [address], [place] [address] Sep, [facility] [address] [id number] [address] [place] [address], [place] [address] Sep, [facility] [address] [id number] [address] [place] [address], [place] [address] Sep, [facility] [address] [id number] [address] [place] [address], [place] [address] Sep, [facility] [address] [id number] [address] [place] [address], [place] [address] Sep, [facility] [address] [id number] [address] [place] [address], [place] [address] Sep, [facility] [address] [id number] [address] [place] [address], [place] [address] Sep, [facility] [address] [id number] [address] [place] [address], [place] [address] Sep, [facility] [address] [id number] [address] [place] [address], [place] [address] Sep, [facility] [address] [id number] [address] [place] [address], [place] [address] Sep, [facility] [address] [id number] [address] [place] [address], [place] [address] Sep, [facility] [address] [id number] [address] [place] [address], [place] [address] Aug, [facility] [address] [id number] [facility] [place] [address] Aug, [facility] [address] [id number] [facility] [place] [address] Aug, [facility] [address] [id number] [facility] [place] [address] Aug, [facility] [address] [id number] [address] [place] [address], [place] [address] Aug, [facility] [address] [id number] [address] [place] [address], [place] [address] Aug, [facility] [address] [id number] [address] [place] [address], [place] [address] Aug, [facility] [address] [id number] [address] [place] [address], [place] [address] Aug, [facility] [address] [id number] [address] [place] [address], [place] [address] Aug, [facility] [address] [id number] [address] [place] [address], [place] [address] Aug, [facility] [address] [id number] [address] [place] [address], [place] [address] Aug, [facility] [address] [place] [id number] Aug, [facility] [address] [id number] [address] [place] [address], [place] [address] Aug, [facility] [address] [id number] [address] [place] [address], [place] [address] Aug, [facility] [address] [id number] [address] [place] [address], [place] [address] Aug, [facility] [address] [id number] [address] [place] [address], [place] [address] Aug, [facility] [address] [id number] [address] [place] [address], [place] [address] Aug, [facility] [address] [id number] [address] [place] [address], [place] [address] Aug, [facility] [address] [id number] [address] [place] [address], [place] [address] Aug, [facility] [address] [id number] [address] [place] [address], [place] [address] Aug, [facility] [place] [facility] [address] [id number] [address] [place] [address], [place] [address] Aug, [facility] [address] [id number] [address] [place] [address], [place] [address] Aug, [facility] [address] [id number] [address] [place] [address], [place] [address] Aug, [facility] [address] [id number] [address] [place] [address], [place] [address] Aug, [facility] [place] [facility] [address] [id number] [address] [place] [address], [place] [address] Aug, [facility] [address] [id number] [address] [place] [address], [place] [address] Aug, [facility] [address] [id number] [address] [place] [address], [place] [address] Aug, [facility] [place] [facility] [address] [id number] [address] [place] [address], [place] [address] Aug, [facility] [address] [id number] [address] [place] [address], [place] [address] Aug, [facility] [address] [id number] [address] [place] [address], [place] [address] Aug, [facility] [address] [id number] [address] [place] [address], [place] [address] Jul, [facility] [address] [id number] [address] [place] [address], [place] [address] Jul, [facility] [address] [id number] [address] [place] [address], [place] [address] Jul, [facility] [address] [id number] [address] [place] [address], [place] [address] Jul, [facility] [address] [id number] [address] [place] [address], [place] [address] Jul, [facility] [address] [id number] [address] [place] [address], [place] [address] Jul, [facility] [address] [id number] [address] [place] [address], [place] [address] Jul, [facility] [address] [id number] [address] [place] [address], [place] [address] Jul, [facility] [address] [id number] [address] [place] [address], [place] [address] Jul, [facility] [address] [id number] [address] [place] [address], [place] [address] Jul, [facility] [address] [id number] [address] [place] [address], [place] [address] Jun, [facility] [address] [id number] [address] [place] [address], [place] [address] Jun, [facility] [address] [id number] [address] [place] [address], [place] [address] Jun, [facility] [address] [id number] [address] [place] [address], [place] [address] Jun, [facility] [address] [id number] [address] [place] [address], [place] [address] Jun, [facility] [address] [id number] [address] [place] [address], [place] [address] Jun, [facility] [address] [id number] [address] [place] [address], [place] [address] Jun, [facility] [address] [id number] [address] [place] [address], [place] [address] Jun, [facility] [address] [id number] [address] [place] [address], [place] [address] Jun, [facility] [address] [id number] [address] [place] [address], [place] [address] Jun, [facility] [address] [id number] [address] [place] [address], [place] [address] 29 May, 2013 [facility] [address] [id number] [address] [place] [address], [place] [address] 29 May, 2013 [facility] [address] [id number] [address] [place] [address], [place] [address] 26 May, 2013 [facility] [address] [id number] [address] [place] [address], [place] [address] 26 May, 2013 [facility] [address] [id number] [address] [place] [address], [place] [address] 17 May, 2013 [facility] [address] [id number] [address] [place] [address], [place] [address] 17 May, 2013 [facility] [address] [id number] [address] [place] [address], [place] [address] 15 May, 2013 [facility] [address] [id number] [address] [place] [address], [place] [address] 15 May, 2013 [facility] [address] [id number] [address] [place] [address], [place] [address] 15 May, 2013 [facility] [address] [id number] [address] [place] [address], [place] [address] 15 May, 2013 [facility] [address] [id number] [address] [place] [address], [place] [address] 10 May, 2013 [facility] [address] [id number] [address] [place] [address], [place] [address] 10 May, 2013 [facility] [address] [id number] [address] [place] [address], [place] [address] 09 May, 2013 [facility] [address] [id number] [address] [place] [address], [place] [address] May, [facility] [address] [id number] [address] [place] [address], [place] [address] May, [facility] [address] [id number] [address] [place] [address], [place] [address] May, [facility] [address] [id number] [address] [place] [address], [place] [address] Apr, [facility] [address] [id number] [address] [place] [address], [place] [address] Apr, [facility] [address] [id number] [address] [place] [address], [place] [address] Apr, [facility] [facility] [address] [id number] [address] [place] [address], [place] [address] Apr, [facility] [address] [id number] [address] [place] [address], [place] [address] Apr, [facility] [address] [id number] [address] [place] [address], [place] [address] Apr, [facility] [address] [id number] [address] [place] [address], [place] [address] Apr, [facility] [address] [id number] [address] [place] [address], [place] [address] Apr, [facility] [address] [id number] [address] [place] [address], [place] [address] Apr, [facility] [address] [id number] [address] [place] [address], [place] [address] Apr, [facility] [address] [id number] [address] [place] [address], [place] [address] Apr, [facility] [address] [id number] [address] [place] [address], [place] [address] Apr, [facility] [address] [id number] [address] [place] [address], [place] [address] Apr, [facility] [address] [id number] [facility] [place] [address] Apr, [facility] [address] [id number] [facility] [place] [address] Apr, [facility] [address] [id number] [facility] [place] [address] Mar, [facility] [address] [id number] [facility] [place] [address] Mar, [facility] [address] [id number] [facility] [place] [address] Mar, [facility] [address] [id number] [address] [place] [address], [place] [address] Mar, [facility] [address] [id number] [address] [place] [address], [place] [address] Mar, [facility] [address] [id number] [address] [place] [address], [place] [address] Mar, [facility] [address] [id number] [address] [place] [address], [place] [address] Mar, [facility] [address] [id number] [address] [place] [address], [place] [address] Mar, [facility] [address] [id number] [address] [place] [address], [place] [address] Mar, [facility] [address] [id number] [address] [place] [address], [place] [address] Mar, [facility] [address] [id number] [address] [place] [address], [place] [address] Mar, [facility] [address] [id number] [address] [place] [address], [place] [address] Mar, [facility] [address] [id number] [address] [place] [address], [place] [address] Mar, [facility] [address] [id number] [address] [place] [address], [place] [address] Mar, [facility] [address] [id number] [facility] [place] [address] Mar, [facility] [address] [id number] [facility] [place] [address] Mar, [facility] [address] [id number] [facility] [place] [address] Mar, [facility] [address] [id number] [facility] [place] [address] Mar, [facility] [address] [id number] [facility] [place] [address] Feb, [facility] [address] [id number] [address] [place] [address], [place] [address] Feb, [facility] [address] [id number] [address] [place] [address], [place] [address] Feb, [facility] [address] [id number] [address] [place] [address], [place] [address] Feb, [facility] [address] [id number] [address] [place] [address], [place] [address] Feb, [facility] [address] [id number] [address] [place] [address], [place] [address] Feb, [facility] [address] [id number] [address] [place] [address], [place] [address] Feb, [facility] [address] [id number] [address] [place] [address], [place] [address] Feb, [facility] [address] [id number] [address] [place] [address], [place] [address] Feb, [facility] [address] [id number] [address] [place] [address], [place] [address] Feb, [facility] [address] [id number] [address] [place] [address], [place] [address] Feb, [facility] [address] [id number] [facility] [place] [address] Feb, [facility] [address] [id number] [address] [place] [address], [place] [address] Feb, [facility] [address] [id number] [address] [place] [address], [place] [address] Feb, [facility] [address] [id number] [address] [place] [address], [place] [address] January, [facility] [address] [id number] [address] [place] [address], [place] [address] January, [facility] [address] [id number] [address] [place] [address], [place] [address] January, [facility] [address] [id number] [address] [place] [address], [place] [address] January, [facility] [address] [id number] [address] [place] [address], [place] [address] January, [facility] [address] [id number] [address] [place] [address], [place] [address] January, [facility] [address] [id number] [address] [place] [address], [place] [address] January, [facility] [address] [id number] [address] [place] [address], [place] [address] January, [facility] [address] [id number] [address] [place] [address], [place] [address] January, [facility] [address] [id number] [address] [place] [address], [place] [address] January, [facility] [address] [id number] [address] [place] [address], [place] [address] January, [facility] [address] [id number] [address] [place] [address], [place] [address] January, [facility] [address] [id number] [address] [place] [address], [place] [address] January, [facility] [address] [id number] [facility] [place] [address] January, [facility] [address] [id number] [facility] [place] [address] Dec, [facility] [address] [id number] [facility] [place] [address] Dec, [facility] [address] [id number] [address] [place] [address], [place] [address] Dec, [facility] [address] [id number] [address] [place] [address], [place] [address] Dec, [facility] [address] [id number] [address] [place] [address], [place] [address] Dec, [facility] [address] [id number] [address] [place] [address], [place] [address] Dec, [facility] [address] [id number] [address] [place] [address], [place] [address] Dec, [facility] [address] [id number] [address] [place] [address], [place] [address] Dec, [facility] [address] [id number] [address] [place] [address], [place] [address] Dec, [facility] [address] [id number] [address] [place] [address], [place] [address] Dec, [facility] [address] [id number] [address] [place] [address], [place] [address] Nov, [facility] [address] [id number] [address] [place] [address], [place] [address] Nov, [facility] [address] [id number] [address] [place] [address], [place] [address] Nov, [facility] [address] [id number] [address] [place] [address], [place] [address] Nov, [facility] [address] [id number] [address] [address] 08 Nov, 2013 [facility] [address] [id number] [address] [place] [address], [place] [address] 08 Nov, 2013 [facility] [address] [id number] [address] [place] [address], [place] [address] Nov, [facility] [address] [id number] [address] [place] [address], [place] [address] Nov, [facility] [address] [id number] [address] [place] [address], [place] [address] Nov, [facility] [address] [id number] [address] [place] [address], [place] [address] Nov, [facility] [address] [id number] [address] [place] [address], [place] [address] Oct, [facility] [address] [id number] [address] [place] [address], [place] [address] Oct, [facility] [address] [id number] [address] [place] [address], [place] [address] Oct, [facility] [address] [id number] [address] [place] [address], [place] [address] Oct, [facility] [address] [id number] [address] [place] [address], [place] [address] Oct, [facility] [address] [id number] [address] [place] [address], [place] [address] Oct, [facility] [address] [id number] [address] [place] [address], [place] [address] 14 Oct, 2013 [facility] [address] [id number] [address] [place] [address], [place] [address] 14 Oct, 2013 [facility] [address] [id number] [address] [place] [address] 05 Oct, 2013 [facility] [address] [id number] [address] [place] [address] Oct, [facility] [address] [id number] [address] [place] [address], [place] [address] Oct, [facility] [address] [id number] [address] [place] [address], [place] [address] Oct, [facility] [address] [id number] [address] [place] [address], [place] [address] Oct, [facility] [address] [id number] [address] [place] [address], [place] [address] Oct, [facility] [address] [id number] [address] [place] [address], [place] [address] Sep, [facility] [address] [id number] [address] [place] [address], [place] [address] Sep, [facility] [address] [id number] [address] [place] [address], [place] [address] Sep, [facility] [address] [id number] [address] [place] [address], [place] [address] Sep, [facility] [address] [id number] [address] [place] [address], [place] [address] Sep, [facility] [address] [id number] [address] [place] [address], [place] [address] Sep, [facility] [address] [id number] [address] [place] [address], [place] [address] Sep, [facility] [address] [id number] [address] [place] [address], [place] [address] Sep, [facility] [address] [id number] [address] [place] [address], [place] [address] Sep, [facility] [address] [id number] [address] [place] [address], [place] [address] Sep, [facility] [address] [id number] [address] [place] [address], [place] [address] Aug, [facility] [address] [id number] [address] [place] [address], [place] [address] Aug, [facility] [address] [id number] [address] [place] [address], [place] [address] Jul, [facility] [address] [id number] [address] [place] [address], [place] [address] Jul, [facility] [address] [id number] [address] [place] [address], [place] [address] Jul, [facility] [address] [id number] [address] [place] [address], [place] [address] Jul, [facility] [address] [id number] [address] [place] [address], [place] [address] Jul, [facility] [address] [id number] [address] [place] [address], [place] [address] Jul, [facility] [address] [id number] [address] [place] [address], [place] [address] Jul, [facility] [address] [id number] [address] [place] [address], [place] [address] Jul, [facility] [address] [id number] [address] [place] [address], [place] [address] Jul, [facility] [address] [id number] [address] [place] [address], [place] [address] Jul, [facility] [address] [id number] [address] [place] [address], [place] [address] Jul, [facility] [address] [id number] [address] [place] [address] Jul, [facility] [address] [id number] [address] [place] [address] Jul, [facility] [address] [id number] [address] [place] [address], [place] [address] Jul, [facility] [address] [id number] [address] [place] [address] Jul, [facility] [address] [id number] [address] [place] [address], [place] [address] 05 Jul, 2012 [facility] [address] [id number] [address] [place] [address], [place] [address] Jul, 2012 [facility] [address] [id number] [address] [place] [address], [place] [address] Jul, 2012 [facility] [address] [id number] [address] [place] [address], [place] [address] Jul, 2012 [facility] [address] [id number] [address] [place] [address], [place] [address] Jun, 2012 [facility] [address] [id number] [address] [place] [address], [place] [address] Jun, 2012 [facility] [address] [id number] [address] [place] [address], [place] [address] Jun, 2012 [facility] [address] [id number] [address] [place] [address], [place] [address] Jun, [facility] [address] [id number] [address] [place] [address], [place] [address] Jun, [facility] [address] [id number] [address] [place] [address], [place] [address] Jun, [facility] [address] [id number] [address] [place] [address], [place] [address] Jun, [facility] [address] [id number] [address] [place] [address], [place] [address] Jun, [facility] [address] [id number] [address] [place] [address], [place] [address] Jun, [facility] [address] [id number] [address] [place] [address], [place] [address] Jun, [facility] [address] [id number] [address] [place] [address] Jun, [facility] [address] [id number] [address] [place] [address] May, 2012 [facility] [address] [id number] [address] [place] [address], [place] [address] 25 May, 2012 [facility] [address] [id number] [address] [place] [address], [place] [address] 19 May, 2012 [facility] [address] [id number] [address] [place] [address], [place] [address] 17 May, 2012 [facility] [address] [id number] [address] [place] [address], [place] [address] 11 May, 2012 [facility] [address] [id number] [address] [place] [address], [place] [address] 10 May, 2013 [facility] [address] [id number] [address] [place] [address], [place] [address] May, [facility] [address] [id number] [address] [place] [address], [place] [address] 05 May, 2013 [facility] [address] [id number] [address] [place] [address], [place] [address] Apr, [facility] [address] [id number] [address] [place] [address], [place] [address] Apr, [facility] [address] [id number] [address] [place] [address], [place] [address] Apr, [facility] [address] [id number] [address] [place] [address], [place] [address] Apr, [facility] [address] [id number] [address] [place] [address], [place] [address] Apr, [facility] [address] [id number] [address] [place] [address], [place] [address] Mar, [facility] [address] [id number] [address] [place] [address], [place] [address] Mar, [facility] [address] [id number] [address] [place] [address], [place] [address] Mar, [facility] [address] [id number] [address] [place] [address], [place] [address] Mar, [facility] [address] [id number] [address] [place] [address], [place] [address] Mar, [facility] [address] [id number] [address] [place] [address], [place] [address] Mar, [facility] [address] [id number] [address] [place] [address], [place] [address] Mar, [facility] [address] [id number] [address] [place] [address], [place] [address] Mar, [facility] [address] [id number] [address] [place] [address], [place] [address] Feb, [facility] [address] [id number] [address] [place] [address], [place] [address] Feb, [facility] [address] [id number] [address] [place] [address], [place] [address] January, [facility] [address] [id number] [address] [place] [address], [place] [address] January, [facility] [address] [id number] [address] [place] [address], [place] [address] Dec, [facility] [address] [id number] [address] [place] [address], [place] [address] Dec, [facility] [address] [id number] [address] [place] [address], [place] [address] Nov, [facility] [address] [id number] [address] [place] [address], [place] [address] Nov, [facility] [address] [id number] [address] [place] [address], [place] [address] Nov, [facility] [address] [id number] [address] [place] [address], [place] [address] Nov, [facility] [address] [id number] [address] [place] [address], [place] [address] Oct, [facility] [address] [id number] [address] [place] [address], [place] [address] Oct, [facility] [address] [id number] [address] [place] [address], [place] [address] Oct, [facility] [address] [id number] [address] [place] [address], [place] [address] Oct, [facility] [address] [id number] [address] [place] [address], [place] [address] 16 Oct, 2012 [facility] [address] [id number] [address] [place] [address], [place] [address] 14 Oct, 2012 [facility] [address] [id number] [address] [place] [address], [place] [address] 08 Oct, 2012 [facility] [address] [id number] [address] [place] [address], [place] [address] 07 Oct, 2012 [facility] [address] [id number] [address] [place] [address], [place] [address] 03 Oct, 2012 [facility] [address] [id number] [address] [place] [address], [place] [address] Sep, [facility] [address] [id number] [address] [place] [address], [place] [address] Sep, [facility] [address] [id number] [address] [place] [address], [place] [address] Sep, [facility] [address] [id number] [address] [place] [address], [place] [address] Sep, [facility] [address] [id number] [address] [place] [address], [place] [address] Sep, [facility] [address] [id number] [address] [place] [address], [place] [address] Sep, [facility] [address] [id number] [address] [place] [address], [place] [address] Sep, [facility] [address] [id number] [address] [place] [address], [place] [address] Sep, [facility] [address] [id number] [address] [place] [address], [place] [address] Aug, [facility] [address] [id number] [address] [place] [address], [place] [address] Aug, [facility] [address] [id number] [address] [place] [address], [place] [address] Aug, [facility] [address] [id number] [address] [place] [address], [place] [address] Aug, [facility] [address] [id number] [address] [place] [address], [place] [address] Aug, [facility] [address] [id number] [address] [place] [address], [place] [address] Aug, [facility] [address] [id number] [address] [place] [address], [place] [address] Aug, [facility] [address] [id number] [address] [place] [address], [place] [address] Aug, [facility] [address] [id number] [address] [place] [address], [place] [address] Jul, [facility] [address] [id number] [address] [place] [address], [place] [address] Jul, [facility] [address] [id number] [address] [place] [address], [place] [address] Jul, [facility] [address] [id number] [address] [place] [address], [place] [address] Jul, [facility] [address] [id number] [address] [place] [address], [place] [address] Jul, [facility] [address] [id number] [address] [place] [address], [place] [address] Jul, [facility] [address] [id number] [address] [place] [address], [place] [address] Jun, [facility] [address] [id number] [address] [place] [address], [place] [address] Jun, [facility] [address] [id number] [address] [place] [address], [place] [address] Jun, [facility] [address] [id number] [address] [place] [address], [place] [address] Jun, [facility] [address] [id number] [address] [place] [address], [place] [address] Jun, [facility] [address] [id number] [address] [place] [address], [place] [address] Jun, [facility] [address] [id number] [address] [place] [address], [place] [address] Jun, [facility] [address] [id number] [address] [place] [address], [place] [address] Jun, [facility] [address] [id number] [address] [place] [address], [place] [address] 10 Jun, 2012 [facility] [address] [id number] [address] [place] [address], [place] [address] 26 May, 2012 [facility] [address] [id number] [address] [place] [address], [place] [address] 24 May, 2012 [facility] [address] [id number] [address] [place] [address], [place] [address] 18 May, 2012 [facility] [address] [id number] [address] [address] 30 Apr, 2012 [facility] [address] [id number] [address] [place] [address], [place] [address] 29 Apr, 2012 [facility] [facility] [address] [id number] [address] [place] [address], [place] [address] Apr, [facility] [address] [id number] [address] [place] [address], [place] [address] 14 Apr, 2012 [facility] [address] [id number] [address] [place] [phone] Apr, [facility] [address] [id number] [address] [place] [address], [place] [address] Apr, [facility] [address] [id number] [address] [place] [address], [place] [address] Mar, [facility] [address] [id number] [address] [place] [address], [place] [address] Mar, [facility] [address] [id number] [address] [place] [address], [place] [address] Mar, [facility] [address] [id number] [address] [place] [address], [place] [address] Mar, [facility] [address] [id number] [address] [place] [address], [place] [address] Feb, [facility] [address] [id number] [address] [place] [address], [place] [address] Feb, [facility] [address] [id number] [address] [place] [address], [place] [address] Feb, [facility] [address] [id number] [address] [place] [address], [place] [address] Feb, [facility] [address] [id number] [address] [place] [address], [place] [address] Feb, [facility] [address] [id number] [address] [place] [address], [place] [address] January, [facility] [address] [id number] [address] [place] [address], [place] [address] January, [facility] [address] [id number] [address] [place] [address], [place] [address] January, [facility] [address] [id number] [address] [place] [address], [place] [address] January, [facility] [address] [id number] [address] [place] [address], [place] [address] January, [facility] [address] [id number] [address] [place] [address], [place] [address] January, [facility] [address] [id number] [address] [place] [address], [place] [address] 24 Dec, 2011 [facility] [address] [id number] [address] [place] [address], [place] [address] Dec, [facility] [address] [id number] [address] [place] [address], [place] [address] Dec, [facility] [address] [id number] [address] [place] [address], [place] [address] Dec, [facility] [address] [id number] [address] [place] [address], [place] [address] Dec, [facility] [address] [id number] [address] [place] [address], [place] [address] 27 Nov, 2011 [facility] [address] [id number] [address] [place] [address], [place] [address] 14 Nov, 2011 [facility] [address] [id number] [address] [place] [address], [place] [address] 12 Nov, 2011 [facility] [address] [id number] [address] [place] [address], [place] [address] 07 Nov, 2011 [facility] [address] [id number] [address] [place] [address], [place] [address] 29 Oct, 2011 [facility] [address] [id number] [address] [place] [address], [place] [address] 28 Oct, 2011 [facility] [address] [id number] [address] [place] [address], [place] [address] 24 Oct, 2011 [facility] [address] [id number] [address] [place] [address], [place] [address] 13 Oct, 2011 [facility] [address] [id number] [address] [place] [address], [place] [address] 08 Oct, 2011 [facility] [address] [id number] [address] [address] Sep, [facility] [address] [id number] [address] [place] [address], [place] [address] Sep, [facility] [address] [id number] [address] [phone] Sep, [facility] [address] [id number] [address] [place] [phone] Sep, [facility] [address] [id number] [address] [place] [phone] Sep, [facility] [address] [id number] [address] [place] [address], [place] [address] Sep, [facility] [address] [id number] [address] [place] [phone] Aug, [facility] [address] [id number] [address] [place] [address], [place] [address] Aug, [facility] [address] [id number] [address] [place] [phone] Aug, [facility] [address] [id number] [address] [place] [phone] Jul, [facility] [address] [id number] [address] [place] [phone] Jul, [facility] [address] [id number] [address] [place] [phone] Jul, [facility] [address] [id number] [address] [place] [id number] Jul, [facility] [address] [id number] [address] [place] [address], [place] [address] Jun, [facility] [address] [id number] [address] [place] [phone] Jun, [facility] [address] [id number] [address] [place] [phone] Jun, [facility] [address] [id number] [address] [place] [address], [place] [address] 10 Jun, 2011 [facility] [address] [id number] [address] [place] [address], [place] [address] 10 Jun, 2011 [facility] [address] [id number] [address] [place] [address], [place] [address] 10 Jun, 2011 [facility] [address] [id number] [address] [place] [address], [place] [address] 11 Mar, 2011 [facility] [address] [id number] [address] [place] [address], [place] [address] 18 Dec, 2010 [facility] [address] [id number] [address] [place] [address], [place] [address] 11 Dec, 2010 [facility] [address] [id number] [address] [place] [address], [place] [address] 18 Nov, 2010 [facility] [address] [id number] [address] [place] [address], [place] [address] 16 Nov, 2010 [facility] [address] [id number] [address] [place] [address], [place] [address] 10 Sep, 2010 [facility] [address] [id number] [address] [place] [address], [place] [address] 31 Aug, 2010 [facility] [address] [id number] [address] [place] [address], [place] [address] 29 Aug, 2010 [facility] [address] [id number] [address] [place] [address], [place] [address] 29 Aug, 2010 [facility] [address] [id number] [address] [place] [address], [place] [address] 29 Aug, 2010 [facility] [address] [id number] [address] [place] [address], [place] [address] 27 Aug, 2010 [facility] [address] [id number] [address] [place] [address], [place] [address] 14 Aug, 2010 [facility] [address] [id number] [address] [place] [address], [place] [address] Aug, [facility] [address] [id number] [address] [place] [address], [place] [address] 08 Aug, 2010 [facility] [address] [id number] [address] [place] [address], [place] [address] Aug, [facility] [address] [id number] [address] [place] [phone] Aug, [facility] [address] [id number] [address] [place] [address], [place] [address] Aug, [facility] [address] [id number] [address] [place] [address], [place] [address] Aug, [facility] [address] [id number] [address] [place] [phone] Jul, [facility] [address] [id number] [address] [place] [address], [place] [address] Jul, [facility] [address] [id number] [address] [place] [id number] Jul, [facility] [address] [id number] [address] [place] [phone] Jul, [facility] [address] [id number] [address] [place] [phone] Jul, [facility] [address] [id number] [address] [place] [phone] Jul, [facility] [address] [id number] [address] [place] [phone] Jun, [facility] [address] [id number] [address] [place] [id number] Jun, [facility] [address] [id number] [address] [place] [phone] Jun, [facility] [address] [id number] [address] [place] [phone] Jun, [facility] [address] [id number] [address] [place] [phone] 16 Apr, 2010 [facility] [address] [id number] [address] [place] [address], [place] [address] Mar, [facility] [address] [id number] [address] [place] [id number] Feb, [facility] [address] [id number] [address] [place] [address], [place] [address] January, [facility] [address] [id number] [address] [place] [phone] 15 Dec, 2009 [facility] [address] [id number] [address] [place] [address], [place] [address] Nov, [facility] [address] [id number] [address] [place] [address], [place] [address] Aug, [facility] [address] [id number] [address] [place] [id number] Aug, [facility] [address] [id number] [address] [place] [address], [place] [address] Aug, [facility] [address] [id number] [address] [place] [phone] Jul, [facility] [address] [id number] [address] [place] [id number] Jul, [facility] [address] [id number] [address] [place] [phone] Jul, [facility] [address] [id number] [address] [place] [id number] 30 Jun, 2009 [facility] [address] [id number] [address] [place] [phone] 29 Jun, 2009 [facility] [address] [id number] [address] [place] [phone] Jun, [facility] [address] [id number] [address] [place] [id number] 22 Jun, 2009 [facility] [place] [address] [facility] [id number] [address] [place] [phone] Jun, [facility] [address] [facility] [id number] [address] [place] [id number] Jun, [facility] [address] [id number] [address] [place] [id number] Apr, [facility] [address] [facility] [id number] [address] [place] [phone] Apr, [facility] [address] [facility] [id number] [address] [place] [id number] Feb, [facility] [address] [facility] [id number] [address] [place] [phone] January, [facility] [address] [facility] [id number] [address] [place] [phone] Dec, IMMUNIZATIONS No Known Immunizations SOCIAL HISTORY Never Assessed REASON FOR VISIT PLAN OF CARE VITAL SIGNS Weight 327.38 lbs 2013-07-10 Temperature 98 degrees Fahrenheit 2013-07-10 Heart Rate 88 bpm 2013-07-10 Respiratory Rate 22 2013-07-10 Blood pressure systolic 140 mmHg 2013-07-10 Blood pressure diastolic 80 mmHg 2013-07-10 MEDICATIONS Unknown Medications RESULTS No Results PROCEDURES Procedure Date Ordered Result Body Site PSYTX PT&/FAMILY 45 MINUTES Jul 10, 2013 X-RAY EXAM OF WRIST Jul 10, 2013 INSTRUCTIONS MEDICATIONS ADMINISTERED No Known Medications [...] History inability to urinate 09/16/15 Hospitalization History [facility] inpatient mental health ea rly 1999's Hospitalization History hyperkalemia 10/2017 Hospitalization History fluid in lung
--- OUTSIDE RECORDS SUMMARY | 2020-03-01 17:48 | XMS REPORT ---
Author Author Michele Barros Organization [facility] Address [address] [place] [address] Care Team Providers Care Monitoring And Evaluation Advisor Name Role Phone Papo COREY Unavailable PROBLEMS Type Condition ICD9-CM Code [id number] Code Onset Dates Condition S tatus SNOMED Code Problem Leukocytosis D72.829 Active 8790895 06 Problem Bipolar I disorder, most recent episode (or curr ent) mixed, moderate F31.62 Active 76719545 Problem Reactive airway disease J45.909 Active 793084940201 Problem Anxiety F41.9 Active 64396798 Problem Insomnia, unspecified type G47.00 Act sharon 046487630 Problem Essential hypertension I10 Active 39715638 Problem Morbid obesity E66.01 Active 57749 6002 Problem Skin cancer C44.90 Active 19483910 7 Problem DM neuro manif type II E11.49 Active 95462712 Problem Mild cognitive impairment G31.84 Acti ve 361599189 Problem Benign prostatic hyperplasia with lower urinary tract symptoms, unspecified morphology N40.1 Active 08152 6007 Problem Chronic pain G89.29 Active 0207664 1 Problem Diabetes E11.9 Active 60015112 Problem Retinal edema H35.81 Active 810780 6 Problem Anemia of chronic illness D63.8 Acti ve 193701981 Problem Falling R29.6 Active 326194050 Problem Pressure ulcer of other site, stage 3 L89.893 Active 109880232 Problem 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 Active 959775842 Problem Eye exam abnormal R93.8 Active 16 2504243 Problem Pure hypercholesterolemia E78.00 Acti ve 718488700 Problem Dysuria R30.0 Active 79551333 Problem Bipolar disorder, in partial remission, most rec ent episode depressed F31.75 Active 73337005 Problem Hypokalemia E87.6 Active 23393494 Problem Other iron deficiency anemia D50.8 A ctive 26421059 Problem Eustachian tube dysfunction, unspecified laterality H69.80 Active 57306827 Problem Primary osteoarthritis of right knee M17.11 Active 986388810651435 Problem Cough R05 Active 49921529 Problem Bipolar disorder F31.9 Active 137 14415 Problem Chronic diastolic (congestive) heart failure I50.3 2 Active 740865435 Problem Psychophysiological insomnia F51.04 A ctive 424190395 Problem Gastroesophageal reflux disease without esophagitis K21.9 Active 006475265 Problem Polyneuropathy associated with underlying disease G63 Active 194434033 Problem Other secondary acute gout, 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 0 Active 027645900 Problem Diabetic polyneuropathy associated with type 2 d iabetes mellitus E11.42 Active 79767027 Problem Chronic lymphocytic leukemia C91.10 A ctive 51515322 Problem Bilateral primary osteoarthritis of knee M17.0 Active 003738911 Problem Type 2 diabetes mellitus with diabetic neuropathy, uns pecified E11.40 Active 27285422 Problem correction (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 Z79.4 Active 244474205 Problem Lymphocytosis D72.820 Active 250759 09 Problem Mood disorder F39 Active 006836 05 Problem Bipolar I disorder, most recent episode depressed, moderat e F31.32 Active 723165951 ALLERGIES No Information ENCOUNTERS Encounter Location Date Diagnosis [facility] [address] [facility] [id number] [address] [place] [address] Dec, [facility] [address] [facility] [id number] [address] [place] [address] Dec, Chronic pain G89.29 [facility] [address] [facility] [id number] [address] [place] [address] 13 Dec, 2019 [facility] [address] [facility] [id number] [address] [place] [address] Dec, [facility] [address] [facility] [id number] [address] [place] [address] Dec, Gastroesophageal reflux dise ase without esophagitis K21.9 and Pure hypercholesterolemia E78.00 [facility] [address] [facility] [id number] [address] [place] [address] Dec, Mood disorder F39 [facility] [address] [id number] [address] [place] [address] 31 Nov, 2019 Other secondary acute gout, 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 [facility] [address] [id number] [address] [place] [address] Nov, Gastroesophageal reflux dise ase without esophagitis K21.9 [facility] [address] [facility] [id number] [address] [place] [address] Nov, Chronic pain G89.29 [facility] [address] [facility] [id number] [address] [place] [address] Nov, Bipolar I disorder, most rec ent episode depressed, moderate F31.32 ; Anxiety F41.9 and Mild cognitive impairment G31.84 [place] [address] [facility] [id number] [address] [place] [address] Nov, [place] [address] [facility] [id number] [address] [place] [address] Nov, Syncope, unspecified syncope type R55 [place] [address] [id number] [address] [place] [address] Nov, Mood disorder F39 [place] [address] [facility] [id number] [address] [place] [address] Oct, Chronic pain G89.29 [facility] [address] [facility] [id number] [address] [place] [address] Oct, [facility] [address] [facility] [id number] [address] [place] [address] Oct, Mood disorder F39 [facility] [address] [facility] [id number] [address] [place] [address] Oct, [facility] [address] [facility] [id number] [address] [place] [address] Oct, Bipolar disorder, in partial remission, most recent episode depressed F31.75 and Mild cognitive impairment G31.84 [place] [address] [id number] [address] [place] [address] 04 Oct, [address] [facility] [address] [id number] [address] [place] [address] Sep, [facility] [address] [id number] [address] [place] [address] Sep, Mood disorder F39 [facility] [address] [id number] [address] [place] [address] Sep, Bipolar disorder, in partial remission, most recent episode depressed F31.75 and Mild cognitive impairment G31.84 [facility] [address] [id number] [address] [place] [address] Sep, Mood disorder F39 [facility] [address] [id number] [address] [place] [address] Sep, [facility] [address] [id number] [address] [place] [address] Sep, Mood disorder F39 [facility] [address] [id number] [address] [place] [address] Sep, [facility] [address] [id number] [address] [place] [address] Aug, Mood disorder F39 [facility] [address] [id number] [address] [place] [address] Aug, [facility] [address] [id number] [address] [place] [address] Aug, [facility] [address] [id number] [address] [place] [address] Aug, [facility] [address] [id number] [address] [place] [address] Aug, [facility] [address] [id number] [address] [place] [address] Aug, [facility] [address] [id number] [address] [place] [address] Aug, [facility] [address] [id number] [address] [place] [address] Aug, [facility] [address] [id number] [address] [place] [address] Aug, Essential hypertension I10 [facility] [address] [id number] [address] [place] [address] Aug, Bipolar disorder, in partial remission, most recent episode depressed F31.75 and Mild cognitive impairment G31.84 [facility] [address] [id number] [address] [place] [address] Aug, Mood disorder F39 [facility] [address] [id number] [address] [place] [address] Aug, [facility] [address] [id number] [address] [place] [address] Aug, Bipolar disorder, in partial remission, most recent episode depressed F31.75 and Mild cognitive impairment G31.84 [facility] [address] [id number] [address] [place] [address] Jul, Bipolar disorder, in partial remission, most recent episode depressed F31.75 and Mild cognitive impairment G31.84 [facility] [address] [id number] [address] [place] [address] Jul, Psychophysiological insomnia F51.04 [facility] [address] [id number] [address] [place] [address] Jul, [facility] [address] [id number] [address] [place] [address] Jul, [facility] [address] [id number] [address] [place] [address] Jul, [facility] [address] [id number] [address] [place] [address] Jul, [facility] [address] [id number] [address] [place] [address] Jul, [place] [address] [facility] [id number] [address] [place] [address] Jul, [place] [address] [facility] [id number] [address] [place] [address] Jul, Bipolar disorder, in partial remission, most recent episode depressed F31.75 and Mild cognitive impairment G31.84 [place] [address] [place] [id number] [address] [place] [address] Jul, Chronic pain G89.29 ; Diabet es E11.9 ; Essential hypertension I10 ; Ill feeling R68.89 ; Local infection of the skin and subcutaneous tissue, unspecified L08.9 and Other injury of unspecified body region, initial encounter T14.8XXA [place] [address] [place] [id number] [address] [place] [address] Jun, Bipolar disorder, in partial remission, most recent episode depressed F31.75 and Mild cognitive impairment G31.84 [place] [address] [facility] [id number] [address] [place] [address] Jun, [address] [id number] [address] [place] [address] Jun, Bipolar disorder, in partial remission, most recent episode depressed F31.75 and Mild cognitive impairment G31.84 [place] [address] [place] [id number] [address] [place] [address] Jun, Psychophysiological insomnia F51.04 [place] [address] [facility] [id number] [address] [place] [address] Jun, Psychophysiological insomnia F51.04 ; Chronic pain G89.29 ; Bipolar I disorder, most recent episode (or current) mixed, moderate F31.62 ; 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 ; Polyneuropathy associated with underlying disease G63 ; Type 2 diabetes mellitus with diabetic neuropathy, unspecified E11.40 ; 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 and Hyperglycemia R73.9 [place] [address] [id number] [address] [place] [address] Jun, Bipolar disorder, in partial remission, most recent episode depressed F31.75 and Mild cognitive impairment G31.84 [facility] [address] [id number] [address] [place] [address] Jun, [facility] [address] [facility] [id number] [address] [place] [address] Jun, Bipolar disorder F31.9 [facility] [address] [id number] [address] [place] [address] May, Bipolar disorder, in partial remission, most recent episode depressed F31.75 and Mild cognitive impairment G31.84 [facility] [address] [facility] [id number] [address] [place] [address] May, [facility] [address] [facility] [id number] [address] [place] [address] Apr, Chronic pain G89.29 and Bipo lar disorder F31.9 [facility] [address] [id number] [address] [place] [address] Mar, Bipolar disorder F31.9 and C hronic pain G89.29 [facility] [address] [facility] [id number] [address] [place] [address] Feb, Bipolar disorder F31.9 [facility] [address] [facility] [id number] [address] [place] [address] Feb, Cellulitis of right upper ex tremity L03.113 and Skin abrasion T14.8XXA [facility] [address] [id number] [address] [place] [address] Feb, Bipolar disorder, in partial remission, most recent episode depressed F31.75 and Mild cognitive impairment G31.84 [facility] [address] [id number] [address] [place] [address] Feb, Chronic pain G89.29 [facility] [address] [facility] [id number] [address] [place] [address] Feb, Bipolar disorder, in partial remission, most recent episode depressed F31.75 and Mild cognitive impairment G31.84 [facility] [address] [id number] [address] [place] [address] January, Bipolar disorder, in partial remission, most recent episode depressed F31.75 and Mild cognitive impairment G31.84 [facility] [address] [id number] [address] [place] [address] January, Chronic pain G89.29 and Bipo lar disorder F31.9 [facility] [address] [id number] [address] [place] [address] January, Bipolar disorder, in partial remission, most recent episode depressed F31.75 and Mild cognitive impairment G31.84 [facility] [address] [id number] [address] [place] [address] Dec, [facility] [address] [id number] [address] [place] [address] Dec, Chronic pain G89.29 and Bipo lar disorder F31.9 [facility] [address] [id number] [address] [place] [address] Dec, Edema of both lower extremit ies R60.0 [facility] [address] [id number] [address] [place] [address] Dec, Bipolar disorder F31.9 [facility] [address] [id number] [address] [place] [address] Dec, Bipolar disorder, in partial remission, most recent episode depressed F31.75 and Mild cognitive impairment G31.84 [facility] [address] [id number] [address] [place] [address] Nov, [facility] [address] [id number] [address] [place] [address] Nov, Chronic pain G89.29 [facility] [address] [id number] [address] [place] [address] Nov, Bipolar disorder, in partial remission, most recent episode depressed F31.75 and Mild cognitive impairment G31.84 [place] [address] [place] [id number] [address] [place] [address] Nov, Bipolar disorder F31.9 [place] [address] [place] [id number] [address] [place] [address] 04 Nov, 2018 [facility] ; Polyneuropathy [...] unspecified morphology N40.1 and Essential hypertension I10 [place] [address] [place] [id number] [address] [place] [address] Oct, Chronic pain G89.29 [place] [address] [place] [id number] [address] [place] [address] 18 Oct, 2018 Diabetes E11.9 [place] [address] [place] [id number] [address] [place] [address] Oct, Bipolar I disorder, most rec ent episode (or current) mixed, moderate F31.62 and Mild cognitive impairment G31.84 [place] [address] [place] [id number] [address] [place] [address] Oct, Bipolar I disorder, most rec ent episode (or current) mixed, moderate F31.62 and Mild cognitive impairment G31.84 [place] [address] [place] [id number] [address] [place] [address] Sep, Bipolar I disorder, most rec ent episode (or current) mixed, moderate F31.62 and Mild cognitive impairment G31.84 [place] [address] [place] [id number] [address] [place] [address] Sep, [facility] [address] [facility] [id number] [address] [place] [address] Sep, Diabetes E11.9 ; Hypoxia R09 .02 ; Hyperglycemia R73.9 ; Therapeutic drug monitoring Z51.81 ; BMI 50.0-59.9, adult Z68.43 and Skin cancer C44.90 [place] [address] [place] [id number] [address] [place] [address] Sep, Chronic pain G89.29 [place] [address] [place] [id number] [address] [place] [address] Sep, Bipolar I disorder, most rec ent episode (or current) mixed, moderate F31.62 [place] [address] [place] [id number] [place] [address] Sep, [place] [address] [place] [id number] [address] [place] [address] Sep, [place] [address] [place] [id number] [address] [place] [address] Aug, Chronic pain G89.29 [place] [address] [place] [id number] [address] [place] [address] Aug, Bipolar I disorder, most rec ent episode (or current) mixed, moderate F31.62 [place] [address] [place] [id number] [address] [place] [address] Aug, Bipolar I disorder, most rec ent episode (or current) mixed, moderate F31.62 and Mild cognitive impairment G31.84 [place] [address] [place] [id number] [address] [place] [address] Jul, [place] [address] [place] [id number] [address] [place] [address] Jul, Chronic pain G89.29 [place] [address] [place] [id number] [address] [place] [address] Jul, Bipolar I disorder, most rec ent episode (or current) mixed, moderate F31.62 and Mild cognitive impairment G31.84 [facility] [address] [facility] [id number] [address] [place] [address] Jul, Bipolar I disorder, most rec ent episode (or current) mixed, moderate F31.62 and MCI (mild cognitive impairment) G31.84 [facility] [address] [facility] [id number] [address] [place] [address] Jul, [facility] [address] [facility] [id number] [address] [place] [address] Jul, [facility] [address] [facility] [id number] [address] [place] [address] Jul, Bipolar I disorder, most rec ent episode (or current) mixed, moderate F31.62 [facility] [address] [facility] [id number] [address] [place] [address] Jul, Chronic pain G89.29 [facility] [address] [facility] [id number] [address] [place] [address] Jun, Bipolar I disorder, most rec ent episode (or current) mixed, moderate F31.62 [place] [address] [facility] [id number] [address] [place] [address] Jun, Pre-procedure lab exam Z01.8 12 [place] [address] [place] [id number] [address] [place] [address] Jun, [facility] [address] [id number] [place] [id number] Jun, [facility] [address] [facility] [id number] [address] [place] [address] Jun, [place] [address] [place] [id number] [address] [place] [address] Jun, Forgetfulness R68.89 ; Pre-s yncope R55 ; Localized edema R60.0 ; Other iron deficiency anemia D50.8 and BMI 50.0-59.9, adult Z68.43 [facility] [address] [facility] [id number] [address] [place] [address] Jun, Chronic pain G89.29 [facility] [address] [facility] [id number] [address] [place] [address] Jun, Chronic pain G89.29 [facility] [address] [facility] [id number] [address] [place] [address] Jun, Bipolar I disorder, most rec ent episode (or current) mixed, moderate F31.62 [facility] [address] [facility] [id number] [address] [place] [address] May, Chronic pain G89.29 [facility] [address] [facility] [id number] [address] [place] [address] Apr, [place] [address] [place] [id number] [address] [place] [address] Apr, Chronic pain G89.29 [facility] [address] [facility] [id number] [address] [place] [address] Apr, Primary osteoarthritis of ri ght knee M17.11 [facility] [address] [facility] [id number] [address] [place] [address] Mar, [facility] [address] [facility] [id number] [address] [place] [address] Mar, BMI 50.0-59.9, adult Z68.43 and Bipolar disorder, in partial remission, most recent episode depressed F31.75 [facility] [address] [facility] [id number] [address] [place] [id number] Mar, Diabetes E11.9 ; Pure hyperc holesterolemia E78.00 ; Essential hypertension I10 ; Nausea with vomiting, unspecified R11.2 and Headache, unspecified headache type R51 [facility] [address] [facility] [id number] [address] [place] [id number] Mar, Bipolar I disorder, most rec ent episode (or current) mixed, moderate F31.62 [facility] [address] [facility] [id number] [address] [place] [id number] Mar, 2018 Bipolar I disorder, most rec ent episode (or current) mixed, moderate F31.62 [facility] [address] [facility] [id number] [address] [place] [id number] Mar, Chronic pain G89.29 [facility] [address] [facility] [id number] [address] [place] [address] Mar, Bipolar I disorder, most rec ent episode (or current) mixed, moderate F31.62 [facility] [address] [facility] [id number] [address] [place] [address] Feb, Bipolar I disorder, most rec ent episode (or current) mixed, moderate F31.62 [facility] [address] [facility] [id number] [address] [place] [address] Feb, Chronic pain G89.29 [facility] [address] [facility] [id number] [address] [place] [address] Feb, Decubitus ulcer of right josselin t, stage 3 L89.893 and BMI 50.0-59.9, adult Z68.43 [facility] [address] [facility] [id number] [address] [place] [address] Feb, Bipolar I disorder, most rec ent episode (or current) mixed, moderate F31.62 [facility] [address] [facility] [id number] [address] [place] [address] Feb, [facility] [address] [facility] [id number] [address] [place] [address] January, [facility] [address] [facility] [id number] [address] [place] [address] January, Chronic pain G89.29 [facility] [address] [facility] [id number] [address] [place] [address] January, Bipolar I disorder, most rec ent episode (or current) mixed, moderate F31.62 [place] [address] [facility] [id number] [address] [place] [address] January, Bipolar I disorder, most rec ent episode (or current) mixed, moderate F31.62 [place] [address] [place] [id number] [address] [place] [address] Dec, Bipolar I disorder, most rec ent episode (or current) mixed, moderate F31.62 and BMI 50.0-59.9, adult Z68.43 [place] [address] [place] [id number] [place] [address] Dec, Bipolar I disorder, most rec ent episode (or current) mixed, moderate F31.62 [place] [address] [place] [id number] [place] [address] Dec, Chronic pain G89.29 [place] [address] [address] Dec, DM neuro manif type II E11.4 9 ; Right flank pain R10.9 ; correction 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 Z79.891 ; Encounter for medication monitoring Z51.81 and BMI 50.0-59.9, adult Z68.43 [place] [address] [place] [id number] [address] [place] [address] Dec, Bipolar I disorder, most rec ent episode (or current) mixed, moderate F31.62 [place] [address] [place] [id number] [address] [place] [address] Nov, Bipolar I disorder, most rec ent episode (or current) mixed, moderate F31.62 [place] [address] [place] [id number] [address] [place] [address] Nov, Chronic pain G89.29 [place] [address] [place] [id number] [address] [place] [address] Nov, Bipolar I disorder, most rec ent episode (or current) mixed, moderate F31.62 [place] [address] [place] [id number] [address] [place] [address] Nov, Hypokalemia E87.6 [place] [address] [address] Nov, Bipolar I disorder, most rec ent episode (or current) mixed, moderate F31.62 [place] [address] [address] Oct, Chronic pain G89.29 [place] [address] [address] Oct, BMI 50.0-59.9, adult Z68.43 and Bipolar I disorder, most recent episode (or current) mixed, moderate F31.62 [place] [address] [address] Oct, Bipolar I disorder, most rec ent episode (or current) mixed, moderate F31.62 [place] [address] [address] Oct, [place] [address] [address] Oct, Hypokalemia E87.6 [place] [address] [address] Oct, DM neuro manif type II E11.4 9 [place] [address] [address] Oct, Bipolar I disorder, most rec ent episode (or current) mixed, moderate F31.62 [place] [address] [address] Oct, Bipolar I disorder, most rec ent episode (or current) mixed, moderate F31.62 [place] [address] [address] [place] [id number] [address] [place] [address] 14 Oct, 2017 Hyperkalemia E87.5 ; Falling R29.6 ; BMI 50.0-59.9, adult Z68.43 and Acute left ankle pain M25.572 [place] [address] [address] 08 Oct, 2017 DM neuro manif type II E11.4 9 [place] [address] [place] [id number] [place] [address] Oct, [place] [address] [address] Sep, Chronic pain G89.29 [place] [address] [address] Sep, [place] [address] [address] Sep, Bilateral primary osteoarthr itis of knee M17.0 [place] [address] [address] Sep, Generalized edema R60.1 [place] [address] [address] 16 Sep, 2017 Bipolar I disorder, most rec ent episode (or current) mixed, moderate F31.62 [place] [address] [address] 15 Sep, 2017 Hypoxia R09.02 ; Other hyper volemia E87.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 ; Anemia of chronic illness D63.8 and BMI 50.0- 59.9, adult Z68.43 [place] [address] [address] Sep, [place] [address] [address] Sep, Bipolar I disorder, most rec ent episode (or current) mixed, moderate F31.62 [place] [address] [place] [id number] [place] [address] Aug, Chronic pain G89.29 [facility] [address] [facility] [id number] [address] [place] [address] Aug, Generalized edema R60.1 [facility] [address] [facility] [id number] [address] [place] [address] Aug, [facility] [address] [facility] [id number] [address] [place] [address] Aug, [facility] [address] [facility] [id number] [address] [place] [address] 14 Aug, 2017 Bipolar I disorder, most rec ent episode (or current) mixed, moderate F31.62 [place] [address] [facility] [id number] [address] [place] [address] Aug, Bipolar I disorder, most rec ent episode (or current) mixed, moderate F31.62 [place] [address] [facility] [id number] [address] [place] [address] 04 Aug, 2017 Chronic pain G89.29 [place] [address] [facility] [id number] [address] [place] [address] 30 Jul, 2017 Bipolar I disorder, most rec ent episode (or current) mixed, moderate F31.62 [place] [address] [facility] [id number] [address] [place] [address] Jul, Bipolar I disorder, most rec ent episode (or current) mixed, moderate F31.62 and BMI 60.0-69.9, adult Z68.44 [place] [address] [facility] [id number] [address] [place] [address] 16 Jul, 2017 Bipolar I disorder, most rec ent episode (or current) mixed, moderate F31.62 [place] [address] [facility] [id number] [address] [place] [address] 06 Jul, 2017 Chronic pain G89.29 [place] [address] [facility] [id number] [address] [place] [address] Jul, Bipolar I disorder, most rec ent episode (or current) mixed, moderate F31.62 [facility] [address] [facility] [id number] [address] [place] [address] Jun, Polyneuropathy associated wi th underlying disease G63 and Diabetes E11.9 [facility] [address] [facility] [id number] [address] [place] [address] Jun, Bipolar I disorder, most rec ent episode (or current) mixed, moderate F31.62 [facility] [address] [facility] [id number] [address] [place] [address] Jun, Chronic pain G89.29 [facility] [address] [facility] [id number] [address] [place] [address] May, Bipolar I disorder, most rec ent episode (or current) mixed, moderate F31.62 [facility] [address] [facility] [id number] [address] [place] [address] May, Bipolar I disorder, most rec ent episode (or current) mixed, moderate F31.62 [facility] [address] [facility] [id number] [address] [place] [address] 20 May, 2017 Diabetic polyneuropathy asso ciated with type 2 diabetes mellitus E11.42 [facility] [address] [facility] [id number] [address] [place] [address] 18 May, 2017 Bipolar I disorder, most rec ent episode (or current) mixed, moderate F31.62 [facility] [address] [facility] [id number] [address] [place] [address] 13 May, 2017 Bipolar I disorder, most rec ent episode (or current) mixed, moderate F31.62 [facility] [address] [facility] [id number] [address] [place] [address] May, Chronic pain G89.29 [facility] [address] [facility] [id number] [address] [place] [address] Apr, Bipolar I disorder, most rec ent episode (or current) mixed, moderate F31.62 [facility] [address] [id number] [address] [place] [address] Apr, [facility] [address] [id number] [address] [place] [address] Apr, Chronic pain G89.29 and DM n euro manif type II E11.49 [facility] [address] [id number] [address] [place] [address] Apr, [facility] [address] [id number] [address] [place] [address] Apr, Bipolar I disorder, most rec ent episode (or current) mixed, moderate F31.62 [facility] [address] [facility] [id number] [address] [place] [address] Apr, Chronic pain G89.29 [facility] [address] [facility] [id number] [address] [place] [address] Apr, Iliotibial band syndrome, le ft M76.32 [facility] [address] [facility] [id number] [address] [place] [address] Apr, Bipolar I disorder, most rec ent episode (or current) mixed, moderate F31.62 [facility] [address] [facility] [id number] [address] [place] [address] Mar, Bipolar I disorder, most rec ent episode (or current) mixed, moderate F31.62 [facility] [address] [facility] [id number] [address] [place] [address] Mar, Bipolar I disorder, most rec ent episode (or current) mixed, moderate F31.62 [facility] [address] [facility] [id number] [address] [place] [address] Mar, [facility] [address] [facility] [id number] [address] [place] [phone] Mar, Bipolar I disorder, most rec ent episode (or current) mixed, moderate F31.62 [facility] [address] [id number] [address] [place] [address] Mar, Chronic pain G89.29 [facility] [address] [id number] [address] [place] [address] Mar, Bipolar I disorder, most rec ent episode (or current) mixed, moderate F31.62 [facility] [address] [facility] [id number] [address] [place] [address] Mar, Bipolar I disorder, most rec ent episode (or current) mixed, moderate F31.62 [facility] [address] [id number] [address] [place] [address] Mar, Acute pain of left knee M25. 562 ; Left hip pain M25.552 ; Generalized edema R60.1 and Tongue swelling R22.0 [facility] [address] [facility] [id number] [address] [place] [address] Mar, [facility] [address] [facility] [id number] [address] [place] [address] Feb, Chronic pain G89.29 [facility] [address] [id number] [address] [place] [address] Feb, Diabetes E11.9 [facility] [address] [facility] [id number] [address] [place] [address] January, Chronic pain G89.29 [facility] [address] [facility] [id number] [address] [place] [address] January, [facility] [address] [facility] [id number] [address] [place] [address] January, Bipolar I disorder, most rec ent episode (or current) mixed, moderate F31.62 [facility] [address] [facility] [id number] [address] [place] [address] Dec, Bipolar I disorder, most rec ent episode (or current) mixed, moderate F31.62 [facility] [address] [facility] [id number] [address] [place] [address] Dec, Chronic pain G89.29 [facility] [address] [facility] [id number] [address] [place] [address] Dec, Bipolar I disorder, most rec ent episode (or current) mixed, moderate F31.62 [facility] [address] [facility] [id number] [address] [place] [address] Dec, Diabetes E11.9 ; Essential h ypertension I10 ; Chronic pain G89.29 and Morbid obesity E66.01 [facility] [address] [facility] [id number] [address] [place] [address] Dec, [facility] [address] [facility] [id number] [address] [place] [address] Dec, Bipolar I disorder, most rec ent episode (or current) mixed, moderate F31.62 [facility] [address] [facility] [id number] [address] [place] [address] Dec, Bipolar I disorder, most rec ent episode (or current) mixed, moderate F31.62 [facility] [address] [facility] [id number] [address] [place] [address] Nov, Chronic pain G89.29 [facility] [address] [facility] [id number] [address] [place] [address] Nov, Bipolar I disorder, most rec ent episode (or current) mixed, moderate F31.62 [facility] [address] [facility] [id number] [address] [place] [address] Nov, [facility] [address] [facility] [id number] [address] [place] [address] Nov, Bipolar I disorder, most rec ent episode (or current) mixed, moderate F31.62 [facility] [address] [facility] [id number] [address] [place] [address] Nov, Bipolar I disorder, most rec ent episode (or current) mixed, moderate F31.62 [facility] [address] [facility] [id number] [address] [place] [address] Nov, [facility] [address] [facility] [id number] [address] [place] [address] Nov, [facility] [address] [facility] [id number] [address] [place] [address] Nov, [facility] [address] [facility] [id number] [address] [place] [address] Oct, Chronic pain G89.29 [facility] [address] [facility] [id number] [address] [place] [address] Oct, Bipolar I disorder, most rec ent episode (or current) mixed, moderate F31.62 [facility] [address] [facility] [id number] [address] [place] [address] Oct, [facility] [address] [facility] [id number] [address] [place] [address] Oct, Chronic pain G89.29 ; Diabet es E11.9 ; Anxiety F41.9 and 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 [facility] [address] [facility] [id number] [address] [place] [address] Oct, [facility] [address] [facility] [id number] [address] [place] [address] Oct, Diabetes E11.9 [facility] [address] [facility] [id number] [address] [place] [address] Oct, Bipolar I disorder, most rec ent episode (or current) mixed, moderate F31.62 [facility] [address] [facility] [id number] [address] [place] [address] Sep, Chronic pain G89.29 [facility] [address] [facility] [id number] [address] [place] [address] Sep, Chronic pain G89.29 [facility] [address] [facility] [id number] [address] [place] [address] Aug, Chronic pain G89.29 [facility] [address] [facility] [id number] [address] [place] [address] Jul, [place] [address] [place] [id number] [address] [place] [address] Jul, Diabetes E11.9 [place] [address] [place] [id number] [address] [place] [address] Jul, Chronic pain G89.29 [place] [address] [place] [id number] [address] [place] [address] Jul, Bipolar I disorder, most rec ent episode (or current) mixed, moderate F31.62 [place] [address] [place] [id number] [place] [address] Jun, Bipolar I disorder, most rec ent episode (or current) mixed, moderate F31.62 [place] [address] [place] [id number] [address] [place] [address] Jun, [place] [address] [place] [id number] [address] [place] [address] Jun, Bipolar I disorder, most rec ent episode (or current) mixed, moderate F31.62 [place] [address] [place] [id number] [address] [place] [address] May, Insomnia, unspecified type G 47.00 [place] [address] [place] [id number] [address] [place] [address] May, Bipolar I disorder, most rec ent episode (or current) mixed, moderate F31.62 [place] [address] [facility] [id number] [address] [place] [address] 14 May, 2016 [place] [address] [place] [id number] [address] [place] [address] 08 May, 2016 Bipolar I disorder, most rec ent episode (or current) mixed, moderate F31.62 [place] [address] [place] [id number] [address] [place] [address] 06 May, 2016 Diabetes E11.9 and Essential hypertension I10 [facility] [address] [facility] [id number] [address] [place] [address] Apr, Chronic pain G89.29 [facility] [address] [facility] [id number] [address] [place] [address] Apr, Bipolar I disorder, most rec ent episode (or current) mixed, moderate F31.62 [place] [address] [facility] [id number] [address] [place] [address] Apr, [place] [address] [facility] [id number] [address] [place] [address] Apr, [place] [address] [facility] [id number] [address] [place] [id number] Mar, Chronic pain G89.29 ; Headac he, unspecified headache type R51 ; Neuropathy G62.9 ; Pain of right hip joint M25.551 and Essential hypertension I10 [place] [address] [address] [facility] [id number] [address] [place] [phone] Mar, Chronic pain G89.29 [place] [address] [facility] [id number] [address] [place] [phone] Mar, Bipolar I disorder, most rec ent episode (or current) mixed, moderate F31.62 [place] [address] [facility] [id number] [address] [place] [id number] Feb, Bipolar I disorder, most rec ent episode (or current) mixed, moderate F31.62 and Insomnia, unspecified type G47.00 [place] [address] [address] [facility] [id number] [address] [place] [phone] Feb, Chronic pain G89.29 [place] [address] [address] [facility] [id number] [address] [place] [phone] Feb, Bipolar I disorder, most rec ent episode (or current) mixed, moderate F31.62 [place] [address] [address] [facility] [id number] [address] [place] [phone] January, Bipolar I disorder, most rec ent episode (or current) mixed, moderate F31.62 [facility] [address] [id number] [address] [place] [phone] January, Chronic pain G89.29 [facility] [address] [id number] [address] [place] [phone] January, Chronic pain G89.29 and Esse ntial hypertension I10 [facility] [address] [id number] [address] [place] [phone] January, Bipolar I disorder, most rec ent episode (or current) mixed, moderate F31.62 [facility] [address] [id number] [address] [place] [phone] Dec, [facility] [address] [facility] [id number] [address] [place] [phone] Dec, [facility] [address] [facility] [id number] [address] [place] [address] Dec, [facility] [address] [id number] [address] [place] [address] Dec, [facility] [address] [facility] [id number] [address] [place] [address] Nov, Reactive airway disease J45. 909 [facility] [address] [facility] [id number] [address] [place] [address] Nov, [facility] [address] [id number] [address] [place] [address] Nov, [facility] [address] [facility] [id number] [address] [place] [address] Nov, [facility] [address] [facility] [id number] [address] [place] [address] Nov, [facility] [address] [facility] [id number] [address] [place] [address] Nov, Onychomycosis B35.1 ; Hammer toe M20.40 ; [place] or callus L84 and DM neuro manif type II E11.49 [facility] [address] [id number] [address] [place] [address] Nov, Chronic pain G89.29 ; Leukoc ytosis D72.829 and Diabetes E11.9 [facility] [address] [facility] [id number] [address] [place] [address] Nov, [facility] [address] [id number] [address] [place] [address] Oct, Bronchitis J40 [facility] [id number] [place] [address] Oct, [place] [address] [address] Oct, [place] [address] [address] Oct, Mastoiditis, unspecified lat erality H70.90 and Type 2 diabetes mellitus with complication E11.8 [place] [address] [place] [id number] [address] [place] [address] Sep, [place] [address] [address] Sep, Dysuria R30.0 ; Cough R05 ; Benign prostatic hyperplasia with lower urinary tract symptoms, unspecified morphology N40.1 ; Hypokalemia E87.6 and Eustachian tube dysfunction, unspecified laterality H69.80 [place] [address] [place] [id number] [address] [place] [address] Sep, Moderate mixed bipolar I dis order F31.62 [place] [address] [place] [id number] [address] [place] [address] Sep, Hypokalemia E87.6 [place] [address] [place] [id number] [address] [place] [address] Sep, [place] [address] [address] Sep, Upper respiratory tract infe ction, unspecified type J06.9 [facility] [address] [id number] [address] [place] [address] Aug, [facility] [address] [id number] [address] [place] [address] Aug, Dysuria R30.0 [facility] [address] [id number] [address] [place] [address] Aug, [facility] [address] [id number] [address] [place] [address] Jul, [facility] [address] [id number] [address] [place] [address] Jul, [facility] [address] [id number] [address] [place] [address] Jul, [facility] [address] [id number] [address] [place] [address] Jul, [facility] [address] [id number] [address] [place] [address] Jun, [facility] [address] [facility] [id number] [address] [place] [address] Jun, [facility] [address] [id number] [address] [place] [address] Jun, [facility] [address] [id number] [address] [place] [address] May, [facility] [address] [id number] [address] [place] [address] May, Bipolar I disorder, most rec ent episode (or current) mixed, moderate 296.62 [facility] [address] [id number] [address] [place] [address] 16 May, 2015 [facility] [address] [id number] [address] [place] [address] May, Bipolar I disorder, most rec ent episode (or current) mixed, moderate 296.62 and Major depressive disorder, recurrent episode, severe, specified as with psychotic behavior 296.34 [facility] [address] [facility] [id number] [address] [place] [address] May, Bipolar I disorder, most rec ent episode (or current) mixed, moderate 296.62 [facility] [address] [id number] [address] [place] [address] May, [facility] [address] [id number] [address] [place] [address] Apr, [facility] [address] [id number] [address] [place] [address] Apr, [facility] [address] [id number] [address] [place] [address] Apr, Unspecified disorder of kidn ey and ureter 593.9 and Diabetes mellitus type 2, uncontrolled 250.02 [facility] [address] [id number] [address] [place] [address] Apr, [facility] [address] [id number] [address] [place] [address] Apr, [facility] [address] [id number] [address] [place] [address] Apr, [facility] [address] [id number] [address] [place] [address] Apr, [facility] [address] [id number] [address] [place] [address] Apr, Diabetes mellitus type II, u ncontrolled 250.02 [facility] [address] [facility] [id number] [address] [place] [address] Apr, [facility] [address] [facility] [id number] [address] [place] [address] Mar, [facility] [address] [id number] [address] [place] [address] Mar, [facility] [address] [id number] [address] [place] [address] Mar, [facility] [address] [address] [id number] [place] [address] Mar, Major depressive disorder, r ecurrent episode, severe, specified as with psychotic behavior 296.34 and Bipolar I disorder, most recent episode (or current) mixed, moderate 296.62 [facility] [address] [place] [id number] [address] [place] [address] Mar, Diabetes 250.00 ; Anuria 788 .5 ; Nausea and vomiting 787.01 and Diarrhea 787.91 [facility] [address] [place] [id number] [address] [place] [address] Mar, Diabetes 250.00 [facility] [address] [address] Mar, [facility] [address] [place] [id number] [address] [place] [address] Mar, Diabetes 250.00 [facility] [address] [place] [id number] [address] [place] [address] Mar, [facility] [address] [id number] [address] [place] [address] Mar, [facility] [address] [id number] [address] [place] [address] Mar, [facility] [address] [id number] [address] [place] [address] Mar, [facility] [address] [place] [id number] [address] [place] [address] Mar, Bipolar I disorder, most rec ent episode (or current) mixed, moderate 296.62 and Major depressive disorder, recurrent episode, severe, specified as with psychotic behavior 296.34 [facility] [address] [place] [id number] [address] [place] [address] Mar, Magnesium deficiency 275.2 ; Hypokalemia 276.8 ; Nausea & vomiting 787.01 and Diabetes mellitus type 2, uncontrolled 250.02 [place] [address] [address] Feb, [place] [address] [address] Feb, Bipolar I disorder, most rec ent episode (or current) mixed, moderate 296.62 [place] [address] [address] Feb, Nausea and vomiting 787.01 ; Left elbow pain 719.42 ; Anuria 788.5 and Diabetes 250.00 [place] [address] [address] Feb, [address] [address] Feb, Hypopotassemia 276.8 and Hyp okalemia 276.[address] [address] Feb, Hypopotassemia 276.8 and Hyp okalemia 276.[address] [address] Feb, Seborrheic keratoses 702.[address] [address] Feb, Hypopotassemia 276.8 and Low magnesium levels 275.2 [place] [address] [address] January, [place] [address] [address] January, [place] [address] [address] January, [place] [address] [address] January, Scalp lesion 709.9 [facility] [address] [id number] [address] [place] [address] January, [facility] [address] [id number] [address] [place] [address] Dec, Tear of medial cartilage or meniscus of knee, current 836.0 and 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 [facility] [address] [id number] [address] [place] [address] Dec, [facility] [address] [id number] [address] [place] [address] Dec, [facility] [address] [id number] [address] [place] [address] Dec, Squamous cell carcinoma, 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 [facility] [address] [id number] [address] [place] [address] Dec, [facility] [address] [id number] [address] [place] [address] Dec, [facility] [address] [id number] [address] [place] [address] Nov, [facility] [address] [id number] [address] [place] [address] Nov, [facility] [address] [id number] [address] [place] [address] Nov, [facility] [address] [id number] [address] [place] [address] Nov, [facility] [address] [id number] [address] [place] [address] Nov, [facility] [address] [id number] [address] [place] [address] Nov, [facility] [address] [id number] [address] [place] [address] Nov, [facility] [address] [id number] [address] [place] [address], [place] [address] Nov, 2014 [facility] [address] [id number] [address] [place] [address], [place] [address] Nov, 2014 [facility] [address] [id number] [address] [place] [address], [place] [address] Nov, 2014 [facility] [address] [id number] [address] [place] [address], [place] [address] Nov, 2014 [facility] [address] [id number] [address] [place] [address], [place] [address] Nov, 2014 [facility] [address] [id number] [address] [place] [address], [place] [address] Oct, 2014 [facility] [address] [id number] [address] [place] [address], [place] [address] Oct, 2014 [facility] [address] [id number] [address] [place] [address], [place] [address] Oct, 2014 [facility] [address] [id number] [address] [place] [address], [place] [address] Oct, 2014 [facility] [address] [id number] [address] [place] [address], [place] [address] Oct, 2014 [facility] [address] [id number] [address] [place] [address], [place] [address] Oct, 2014 [facility] [address] [id number] [address] [place] [address] Oct, 2014 [facility] [address] [id number] [address] [place] [address], [place] [address] Oct, 2014 [facility] [address] [id number] [address] [place] [address], [place] [address] Oct, 2014 [facility] [address] [id number] [address] [place] [address], [place] [address] Sep, [facility] [address] [id number] [address] [place] [address], [place] [address] Sep, [facility] [address] [id number] [address] [place] [address], [place] [address] Sep, [facility] [address] [id number] [address] [place] [address], [place] [address] Sep, [facility] [address] [id number] [address] [place] [address], [place] [address] Sep, [facility] [address] [id number] [address] [place] [address], [place] [address] Sep, [facility] [address] [id number] [address] [place] [address], [place] [address] Sep, [facility] [address] [id number] [address] [place] [address], [place] [address] Sep, [facility] [address] [id number] [address] [place] [address], [place] [address] Sep, [facility] [address] [id number] [address] [place] [address], [place] [address] Sep, [facility] [address] [id number] [address] [place] [address], [place] [address] Sep, [facility] [address] [id number] [address] [place] [address], [place] [address] Sep, [facility] [address] [id number] [address] [place] [address], [place] [address] Sep, [facility] [address] [id number] [address] [place] [address], [place] [address] Sep, [facility] [address] [id number] [address] [place] [address], [place] [address] Sep, [facility] [address] [id number] [address] [place] [address], [place] [address] Sep, [facility] [address] [id number] [address] [place] [address], [place] [address] Aug, [facility] [address] [id number] [facility] [place] [address] Aug, [facility] [address] [id number] [facility] [place] [address] Aug, [facility] [address] [id number] [facility] [place] [address] Aug, [facility] [address] [id number] [facility] [place] [address] Aug, [facility] [address] [id number] [facility] [place] [address] Aug, [facility] [address] [id number] [facility] [place] [address] Aug, [facility] [address] [id number] [facility] [place] [address] Aug, [facility] [address] [id number] [address] [place] [address], [place] [address] Aug, [facility] [address] [id number] [address] [place] [address], [place] [address] Aug, [facility] [address] [id number] [address] [place] [address], [place] [address] Aug, [facility] [address] [place] [id number] Aug, [facility] [address] [id number] [address] [place] [address], [place] [address] Aug, [facility] [address] [id number] [address] [place] [address], [place] [address] Aug, [facility] [address] [id number] [facility] [place] [address] Aug, [facility] [address] [id number] [facility] [place] [address] Aug, [facility] [address] [id number] [facility] [place] [address] Aug, [facility] [address] [id number] [address] [place] [address], [place] [address] Aug, [facility] [address] [id number] [address] [place] [address], [place] [address] Aug, [facility] [address] [id number] [address] [place] [address], [place] [address] Aug, [facility] [address] [id number] [address] [place] [address], [place] [address] Aug, [facility] [address] [id number] [address] [place] [address], [place] [address] Aug, [facility] [address] [id number] [address] [place] [address], [place] [address] Aug, [facility] [address] [id number] [address] [place] [address], [place] [address] Aug, [facility] [address] [id number] [address] [place] [address], [place] [address] Aug, [facility] [address] [id number] [address] [place] [address], [place] [address] Aug, [facility] [address] [id number] [address] [place] [address], [place] [address] Aug, [facility] [address] [id number] [address] [place] [address], [place] [address] Aug, [facility] [address] [id number] [address] [place] [address], [place] [address] Aug, [facility] [address] [id number] [address] [place] [address], [place] [address] Aug, [facility] [address] [id number] [address] [place] [address], [place] [address] Jul, [facility] [address] [id number] [address] [place] [address], [place] [address] Jul, [facility] [address] [id number] [address] [place] [address], [place] [address] Jul, [facility] [address] [id number] [address] [place] [address], [place] [address] Jul, [facility] [address] [id number] [address] [place] [address], [place] [address] Jul, [facility] [address] [id number] [address] [place] [address], [place] [address] Jul, [facility] [address] [id number] [address] [place] [address], [place] [address] Jul, [facility] [address] [id number] [address] [place] [address], [place] [address] Jul, [facility] [address] [id number] [address] [place] [address], [place] [address] Jul, [facility] [address] [id number] [address] [place] [address], [place] [address] Jul, [facility] [address] [id number] [address] [place] [address], [place] [address] Jun, [facility] [address] [id number] [address] [place] [address], [place] [address] Jun, [facility] [address] [id number] [address] [place] [address] Jun, [facility] [address] [id number] [address] [place] [address], [place] [address] Jun, [facility] [address] [id number] [address] [place] [address] Jun, [facility] [address] [id number] [address] [place] [id number] Jun, [facility] [place] [address] [id number] [address] [place] [address] Jun, [facility] [place] [address] [id number] [address] [place] [id number] Jun, [facility] [place] [address] [id number] [address] [place] [address], [place] [address] Jun, [facility] [place] [address] [id number] [address] [place] [address], [place] [address] Jun, [facility] [place] [address] [id number] [address] [place] [address], [place] [address] 29 May, 2013 [facility] [address] [id number] [address] [place] [address], [place] [address] 29 Sep, 2013 [facility] [place] [address] [id number] [address] [place] [address], [place] [address] 26 Sep, 2013 [facility] [place] [address] [id number] [address] [place] [address], [place] [address] 26 May, 2013 [facility] [place] [address] [id number] [address] [place] [address], [place] [address] 17 May, 2013 [facility] [place] [address] [id number] [address] [place] [address], [place] [address] 17 May, 2013 [facility] [place] [address] [id number] [address] [place] [address], [place] [address] 15 May, 2013 [facility] [place] [address] [id number] [address] [place] [address], [place] [address] 15 May, 2013 [facility] [place] [address] [id number] [address] [place] [address], [place] [address] 15 May, 2013 [facility] [place] [address] [id number] [address] [place] [address], [place] [address] 15 May, 2013 [facility] [address] [id number] [address] [place] [address], [place] [address] 10 Sep, 2013 [facility] [address] [id number] [address] [place] [address], [place] [address] 10 Sep, 2013 [facility] [address] [id number] [address] [place] [address], [place] [address] 09 Sep, 2013 [facility] [place] [address] [id number] [address] [place] [address], [place] [address] May, [facility] [address] [id number] [facility] [place] [address] May, [facility] [address] [id number] [address] [place] [address], [place] [address] May, [facility] [address] [id number] [address] [place] [address], [place] [address] Apr, [facility] [address] [id number] [address] [place] [address], [place] [address] Apr, [facility] [address] [id number] [address] [place] [address], [place] [address] Apr, [facility] [address] [id number] [address] [place] [address], [place] [address] Apr, [facility] [address] [id number] [address] [place] [address], [place] [address] Apr, [facility] [address] [id number] [address] [place] [address], [place] [address] Apr, [facility] [address] [id number] [address] [place] [address], [place] [address] Apr, [facility] [address] [id number] [address] [place] [address], [place] [address] Apr, [facility] [address] [id number] [address] [place] [address], [place] [address] Apr, [facility] [address] [id number] [address] [place] [address], [place] [address] Apr, [facility] [address] [id number] [address] [place] [address], [place] [address] Apr, [facility] [address] [id number] [address] [place] [address], [place] [address] Apr, [facility] [address] [id number] [address] [place] [address], [place] [address] Apr, [facility] [address] [id number] [address] [place] [address] Apr, [facility] [address] [id number] [address] [place] [address], [place] [address] Apr, [facility] [address] [id number] [address] [place] [address], [place] [address] Mar, [facility] [address] [id number] [address] [place] [address], [place] [address] Mar, [facility] [address] [id number] [address] [place] [address], [place] [address] Mar, [facility] [address] [id number] [address] [place] [address], [place] [address] Mar, [facility] [address] [id number] [address] [place] [address], [place] [address] Mar, [facility] [address] [id number] [address] [place] [address], [place] [address] Mar, [facility] [address] [id number] [address] [place] [address], [place] [address] Mar, [facility] [address] [id number] [address] [place] [address], [place] [address] Mar, [facility] [address] [id number] [address] [place] [address], [place] [address] Mar, [facility] [address] [id number] [address] [place] [address], [place] [address] Mar, [facility] [address] [id number] [address] [place] [address], [place] [address] Mar, [facility] [address] [id number] [address] [place] [address], [place] [address] Mar, [facility] [address] [id number] [address] [place] [address], [place] [address] Mar, [facility] [address] [id number] [address] [place] [address], [place] [address] Mar, [facility] [address] [id number] [facility] [place] [address] Mar, 2013 [facility] [address] [id number] [address] [place] [address], [place] [address] Mar, 2013 [facility] [address] [id number] [address] [place] [address], [place] [address] Mar, [facility] [address] [id number] [address] [place] [address], [place] [address] Mar, [facility] [address] [id number] [address] [place] [address], [place] [address] Feb, [facility] [address] [id number] [address] [place] [address], [place] [address] Feb, [facility] [address] [id number] [address] [place] [address], [place] [address] Feb, [facility] [address] [id number] [address] [place] [address], [place] [address] Feb, [facility] [address] [id number] [address] [place] [address], [place] [address] Feb, [facility] [address] [id number] [address] [place] [address], [place] [address] Feb, [facility] [address] [id number] [address] [place] [address], [place] [address] Feb, [facility] [address] [id number] [address] [place] [address], [place] [address] Feb, [facility] [address] [id number] [address] [place] [address], [place] [address] Feb, [facility] [address] [id number] [address] [place] [address], [place] [address] Feb, [facility] [address] [id number] [address] [place] [address], [place] [address] Feb, [facility] [address] [id number] [address] [place] [address], [place] [address] Feb, [facility] [address] [id number] [facility] [place] [address] Feb, [facility] [address] [id number] [address] [place] [address], [place] [address] Feb, [facility] [address] [id number] [address] [place] [address], [place] [address] January, [facility] [address] [id number] [address] [place] [address], [place] [address] January, [facility] [address] [id number] [address] [place] [address], [place] [address] January, [facility] [address] [id number] [address] [place] [address], [place] [address] January, [facility] [address] [id number] [address] [place] [address], [place] [address] January, [facility] [address] [id number] [address] [place] [address], [place] [address] January, [facility] [address] [id number] [address] [place] [address], [place] [address] January, [facility] [address] [id number] [address] [place] [address], [place] [address] January, [facility] [address] [id number] [address] [place] [address], [place] [address] January, [facility] [address] [id number] [address] [place] [address], [place] [address] January, [facility] [address] [id number] [address] [place] [address], [place] [address] January, [facility] [address] [id number] [address] [place] [address], [place] [address] January, [facility] [address] [id number] [address] [place] [address], [place] [address] January, [facility] [address] [id number] [facility] [place] [address] January, [facility] [address] [id number] [facility] [place] [address] Dec, [facility] [address] [id number] [facility] [place] [address] Dec, [facility] [address] [id number] [address] [place] [address], [place] [address] Dec, [facility] [address] [id number] [facility] [place] [address] Dec, [facility] [address] [id number] [address] [place] [address], [place] [address] Dec, [facility] [address] [id number] [address] [place] [address], [place] [address] Dec, [facility] [address] [id number] [address] [place] [address], [place] [address] Dec, [facility] [address] [id number] [address] [place] [address], [place] [address] Dec, [facility] [address] [id number] [address] [place] [address], [place] [address] Dec, [facility] [address] [id number] [address] [place] [address], [place] [address] Dec, [facility] [address] [id number] [address] [place] [address], [place] [address] Nov, [facility] [address] [id number] [address] [place] [address], [place] [address] Nov, [facility] [address] [id number] [address] [place] [address], [place] [address] Nov, [facility] [address] [id number] [address] [place] [address], [place] [address] Nov, [facility] [address] [id number] [address] [place] [address], [place] [address] Nov, [facility] [address] [id number] [facility] [place] [address] 08 Nov, 2013 [facility] [address] [id number] [address] [place] [address], [place] [address] Nov, [facility] [address] [id number] [address] [place] [address], [place] [address] Nov, [facility] [address] [id number] [address] [place] [address], [place] [address] Nov, [facility] [address] [id number] [address] [place] [address], [place] [address] Nov, [facility] [address] [id number] [address] [place] [address], [place] [address] Oct, [facility] [address] [id number] [address] [place] [address], [place] [address] Oct, [facility] [address] [id number] [address] [place] [address], [place] [address] Oct, [facility] [address] [id number] [address] [place] [address], [place] [address] Oct, [facility] [address] [id number] [address] [place] [address], [place] [address] Oct, [facility] [address] [id number] [address] [place] [address], [place] [address] Oct, [facility] [address] [id number] [address] [place] [address], [place] [address] 14 Oct, 2013 [facility] [address] [id number] [address] [place] [address], [place] [address] 14 Oct, 2013 [facility] [address] [id number] [address] [place] [address], [place] [address] 05 Oct, 2013 [facility] [address] [id number] [address] [place] [address], [place] [address] 05 Oct, 2013 [facility] [address] [id number] [address] [place] [address], [place] [address] Oct, [facility] [address] [id number] [address] [place] [address], [place] [address] Oct, [facility] [address] [id number] [address] [place] [address], [place] [address] Oct, [facility] [address] [id number] [address] [place] [address], [place] [address] Oct, [facility] [address] [id number] [address] [place] [address], [place] [address] Sep, [facility] [address] [id number] [address] [place] [address], [place] [address] Sep, [facility] [address] [id number] [address] [place] [address], [place] [address] Sep, [facility] [address] [id number] [address] [place] [address], [place] [address] Sep, [facility] [address] [id number] [address] [place] [address], [place] [address] Sep, [facility] [address] [id number] [address] [place] [address], [place] [address] Sep, [facility] [address] [id number] [address] [place] [address], [place] [address] Sep, [facility] [address] [id number] [address] [place] [address], [place] [address] Sep, [facility] [address] [id number] [address] [place] [address], [place] [address] Sep, [facility] [address] [id number] [address] [place] [address], [place] [address] Sep, [facility] [address] [id number] [address] [place] [address], [place] [address] Aug, [facility] [address] [id number] [address] [address] Aug, [facility] [address] [id number] [address] [place] [address], [place] [address] Jul, [facility] [address] [id number] [address] [place] [address], [place] [address] Jul, [facility] [address] [id number] [address] [place] [address], [place] [address] Jul, [facility] [address] [id number] [address] [place] [address] Jul, [facility] [address] [id number] [address] [place] [address], [place] [address] Jul, [facility] [address] [id number] [address] [place] [address] Jul, [facility] [address] [id number] [address] [place] [address], [place] [address] Jul, [facility] [address] [id number] [address] [place] [address] Jul, [facility] [address] [id number] [address] [place] [address] Jul, [facility] [address] [id number] [address] [place] [address] Jul, [facility] [address] [id number] [address] [place] [address] Jul, [facility] [address] [id number] [address] [place] [address] Jul, [facility] [address] [id number] [address] [place] [address], [place] [address] Jul, [facility] [address] [id number] [address] [place] [address] Jul, [facility] [address] [id number] [address] [place] [address] Jul, [facility] [address] [id number] [address] [place] [address], [place] [address] 05 Jul, 2012 [facility] [address] [id number] [address] [place] [address], [place] [address] Jul, 2012 [facility] [address] [id number] [address] [place] [address], [place] [address] Jul, 2012 [facility] [address] [id number] [address] [place] [address], [place] [address] Jul, 2012 [facility] [address] [id number] [address] [place] [address], [place] [address] Jun, 2012 [facility] [address] [id number] [address] [place] [address], [place] [address] Jun, 2012 [facility] [address] [id number] [address] [place] [address], [place] [address] Jun, 2012 [facility] [address] [id number] [address] [place] [address], [place] [address] Jun, 2012 [facility] [address] [id number] [address] [place] [address], [place] [address] Jun, 2012 [facility] [address] [id number] [address] [place] [address], [place] [address] Jun, 2012 [facility] [address] [id number] [address] [place] [address] Jun, [facility] [address] [id number] [address] [place] [address], [place] [address] Jun, 2012 [facility] [address] [id number] [address] [place] [address], [place] [address] Jun, [facility] [address] [id number] [address] [place] [address], [place] [address] Jun, [facility] [address] [id number] [address] [place] [address], [place] [address] Jun, [facility] [address] [id number] [address] [place] [address], [place] [address] May, [facility] [address] [id number] [address] [place] [address], [place] [address] 25 May, 2012 [facility] [address] [id number] [address] [place] [address], [place] [address] 19 May, 2012 [facility] [address] [id number] [address] [place] [address], [place] [address] 17 May, 2012 [facility] [address] [id number] [address] [place] [address], [place] [address] 11 May, 2012 [facility] [address] [id number] [address] [place] [address], [place] [address] 10 May, 2012 [facility] [address] [id number] [address] [place] [address], [place] [address] May, [facility] [address] [id number] [address] [place] [address], [place] [address] 05 May, 2013 [facility] [address] [id number] [address] [place] [address], [place] [address] Apr, [facility] [address] [id number] [address] [place] [address], [place] [address] Apr, [facility] [address] [id number] [address] [place] [address], [place] [address] Apr, [facility] [address] [id number] [address] [place] [address], [place] [address] Apr, [facility] [address] [id number] [address] [place] [address], [place] [address] Apr, [facility] [address] [id number] [address] [place] [address], [place] [address] Mar, [facility] [address] [id number] [address] [place] [address], [place] [address] Mar, [facility] [address] [id number] [address] [place] [address], [place] [address] Mar, [facility] [address] [id number] [address] [place] [address], [place] [address] Mar, [facility] [address] [id number] [address] [place] [address], [place] [address] Mar, [facility] [address] [id number] [address] [place] [address], [place] [address] Mar, [facility] [address] [id number] [address] [place] [address], [place] [address] Mar, [facility] [address] [id number] [address] [place] [address], [place] [address] Mar, [facility] [address] [id number] [address] [place] [address], [place] [address] Feb, [facility] [address] [id number] [address] [place] [address], [place] [address] Feb, [facility] [address] [id number] [address] [place] [address], [place] [address] January, [facility] [address] [id number] [address] [place] [address], [place] [address] January, [facility] [address] [id number] [address] [place] [address], [place] [address] Dec, [facility] [address] [id number] [address] [place] [address], [place] [address] Dec, [facility] [address] [id number] [address] [place] [address], [place] [address] Nov, [facility] [address] [id number] [address] [place] [address], [place] [address] Nov, [facility] [address] [id number] [address] [place] [address], [place] [address] Nov, [facility] [address] [id number] [address] [place] [address], [place] [address] Nov, [facility] [address] [id number] [address] [place] [address], [place] [address] Oct, [facility] [address] [id number] [address] [place] [address], [place] [address] Oct, [facility] [address] [id number] [address] [place] [address], [place] [address] Oct, [facility] [address] [id number] [address] [place] [address], [place] [address] Oct, [facility] [address] [id number] [address] [place] [address], [place] [address] 16 Oct, 2012 [facility] [address] [id number] [address] [place] [address], [place] [address] 14 Oct, 2012 [facility] [address] [id number] [address] [place] [address], [place] [address] 08 Oct, 2012 [facility] [address] [id number] [address] [place] [address], [place] [address] 07 Oct, 2012 [facility] [address] [id number] [address] [place] [address], [place] [address] 03 Oct, 2012 [facility] [address] [id number] [address] [place] [address], [place] [address] Sep, [facility] [address] [id number] [address] [place] [address], [place] [address] Sep, [facility] [address] [id number] [address] [place] [id number] Sep, [facility] [address] [id number] [address] [place] [address] Sep, [facility] [address] [id number] [address] [place] [address], [place] [address] Sep, [facility] [address] [id number] [address] [place] [address], [place] [address] Sep, [facility] [address] [id number] [address] [place] [id number] Sep, [facility] [address] [id number] [address] [place] [address] Sep, [facility] [address] [id number] [address] [place] [address], [place] [address] Aug, [facility] [address] [id number] [address] [place] [address], [place] [address] Aug, [facility] [address] [id number] [address] [place] [address], [place] [address] Aug, [facility] [address] [id number] [address] [place] [address], [place] [address] Aug, [facility] [address] [id number] [address] [place] [address], [place] [address] Aug, [facility] [address] [id number] [address] [place] [address], [place] [address] Aug, [facility] [address] [id number] [address] [place] [address], [place] [address] Aug, [facility] [address] [id number] [address] [place] [address], [place] [address] Aug, [facility] [address] [id number] [address] [place] [address], [place] [address] Jul, [facility] [address] [id number] [address] [place] [address], [place] [address] Jul, [facility] [address] [id number] [address] [place] [address], [place] [address] Jul, [facility] [address] [id number] [address] [place] [address], [place] [address] Jul, [facility] [address] [id number] [address] [place] [address], [place] [address] Jul, [facility] [address] [id number] [address] [place] [address], [place] [address] Jul, [facility] [address] [id number] [address] [place] [address], [place] [address] Jun, [facility] [address] [id number] [address] [place] [address], [place] [address] Jun, [facility] [address] [id number] [address] [place] [address], [place] [address] Jun, [facility] [address] [id number] [address] [place] [address], [place] [address] Jun, [facility] [address] [id number] [address] [place] [address], [place] [address] Jun, [facility] [address] [id number] [address] [place] [address], [place] [address] Jun, [facility] [address] [id number] [address] [place] [address], [place] [address] Jun, [facility] [address] [id number] [address] [place] [address], [place] [address] Jun, [facility] [address] [id number] [address] [place] [address], [place] [address] 10 Jun, 2012 [facility] [address] [id number] [address] [place] [address], [place] [address] 26 May, 2012 [facility] [address] [id number] [address] [place] [address], [place] [address] 24 May, 2012 [facility] [address] [id number] [address] [place] [address], [place] [address] 18 May, 2012 [facility] [address] [id number] [address] [place] [address], [place] [address] 30 Apr, 2012 [facility] [address] [id number] [address] [place] [address], [place] [address] 29 Apr, 2012 [facility] [address] [id number] [address] [place] [address], [place] [address] Apr, [facility] [address] [id number] [address] [place] [address], [place] [address] 14 Apr, 2012 [facility] [address] [id number] [address] [place] [address], [place] [address] Apr, [facility] [facility] [address] [id number] [address] [place] [address], [place] [address] Apr, [facility] [address] [id number] [address] [place] [address], [place] [address] Mar, [facility] [address] [id number] [address] [place] [address], [place] [address] Mar, [facility] [address] [id number] [address] [place] [address], [place] [address] Mar, [facility] [address] [id number] [address] [place] [address], [place] [address] Mar, [facility] [address] [id number] [address] [place] [address], [place] [address] Feb, [facility] [address] [id number] [address] [place] [address], [place] [address] Feb, [facility] [address] [id number] [address] [place] [address], [place] [address] Feb, [facility] [address] [id number] [address] [place] [address], [place] [address] Feb, [facility] [address] [id number] [address] [place] [address], [place] [address] Feb, [facility] [address] [id number] [address] [place] [address], [place] [address] January, [facility] [address] [id number] [address] [place] [address], [place] [address] January, [facility] [address] [id number] [address] [place] [address], [place] [address] January, [facility] [address] [id number] [address] [place] [address], [place] [address] January, [facility] [address] [id number] [address] [place] [address], [place] [address] January, [facility] [address] [id number] [address] [place] [address], [place] [address] January, [facility] [address] [id number] [address] [place] [address], [place] [address] 24 Dec, 2011 [facility] [address] [id number] [address] [place] [address], [place] [address] 24 Dec, 2011 [facility] [address] [id number] [address] [place] [address], [place] [address] 17 Dec, 2011 [facility] [address] [id number] [address] [place] [address], [place] [address] 09 Dec, 2011 [facility] [address] [id number] [address] [place] [address], [place] [address] 06 Dec, 2011 [facility] [address] [id number] [address] [place] [address], [place] [address] 27 Nov, 2011 [facility] [address] [id number] [address] [place] [address], [place] [address] 14 Nov, 2011 [facility] [address] [id number] [address] [place] [address], [place] [address] 12 Nov, 2011 [facility] [address] [id number] [address] [place] [address], [place] [address] 07 Nov, 2011 [facility] [address] [id number] [address] [place] [address], [place] [address] 29 Oct, 2011 [facility] [address] [id number] [address] [place] [address], [place] [address] 28 Oct, 2011 [facility] [address] [id number] [address] [place] [address], [place] [address] 24 Oct, 2011 [facility] [address] [id number] [address] [place] [address], [place] [address] 13 Oct, 2011 [facility] [address] [id number] [address] [place] [address], [place] [address] 08 Oct, 2011 [facility] [address] [id number] [address] [place] [address], [place] [address] Sep, [facility] [address] [id number] [address] [place] [address], [place] [address] Sep, [facility] [address] [id number] [address] [place] [address], [place] [address] Sep, [facility] [address] [id number] [address] [place] [address], [place] [address] Sep, [facility] [address] [id number] [address] [place] [address], [place] [address] Sep, [facility] [address] [id number] [address] [place] [address], [place] [address] Sep, [facility] [address] [id number] [address] [place] [address], [place] [address] Aug, [facility] [address] [id number] [address] [place] [address], [place] [address] Aug, [facility] [address] [id number] [address] [place] [address], [place] [address] Aug, [facility] [address] [id number] [address] [place] [address], [place] [address] Jul, [facility] [address] [id number] [address] [place] [address], [place] [address] Jul, [facility] [address] [id number] [address] [place] [address], [place] [address] Jul, [facility] [address] [id number] [address] [place] [address], [place] [address] Jul, [facility] [address] [id number] [address] [place] [address], [place] [address] Jun, [facility] [address] [id number] [address] [place] [address], [place] [address] Jun, [facility] [address] [id number] [address] [place] [address], [place] [address] Jun, [facility] [address] [id number] [address] [place] [address] [place] [address] 10 Jun, 2011 [facility] [address] [id number] [address] [place] [address], [place] [address] 10 Jun, 2011 [facility] [address] [id number] [address] [place] [address], [place] [address] 10 Jun, 2011 [facility] [address] [id number] [address] [place] [address], [place] [address] 11 Mar, 2011 [facility] [address] [id number] [address] [place] [address], [place] [address] 18 Dec, 2010 [facility] [address] [id number] [address] [place] [address], [place] [address] 11 Dec, 2010 [facility] [address] [id number] [address] [place] [address], [place] [address] 18 Nov, 2010 [facility] [address] [id number] [address] [place] [address], [place] [address] 16 Nov, 2010 [facility] [address] [id number] [address] [place] [address], [place] [address] 10 Sep, 2010 [facility] [address] [id number] [address] [place] [address], [place] [address] 31 Aug, 2010 [facility] [address] [id number] [address] [place] [address], [place] [address] 29 Aug, 2010 [facility] [address] [id number] [address] [place] [address], [place] [address] 29 Aug, 2010 [facility] [address] [id number] [address] [place] [address], [place] [address] 29 Aug, 2010 [facility] [address] [id number] [address] [place] [address], [place] [address] 27 Aug, 2010 [facility] [address] [id number] [address] [place] [address], [place] [address] 14 Aug, 2010 [facility] [address] [id number] [address] [place] [address], [place] [address] 08 Aug, 2010 [facility] [address] [id number] [address] [place] [address], [place] [address] 08 Aug, 2010 [facility] [address] [id number] [address] [place] [address], [place] [address] 07 Aug, 2010 [facility] [address] [id number] [address] [place] [address], [place] [address] 06 Aug, 2010 [facility] [address] [id number] [address] [place] [address], [place] [address] Aug, [facility] [address] [id number] [address] [place] [address], [place] [address] Aug, [facility] [address] [id number] [address] [place] [address], [place] [address] Jul, [facility] [address] [id number] [address] [place] [address], [place] [address] Jul, [facility] [address] [id number] [address] [place] [address], [place] [address] Jul, [facility] [address] [id number] [address] [place] [address], [place] [address] Jul, [facility] [address] [id number] [address] [place] [address], [place] [address] Jul, [facility] [address] [id number] [address] [place] [address], [place] [address] Jul, [facility] [address] [id number] [address] [place] [address], [place] [address] 24 Jun, 2010 [facility] [address] [id number] [address] [place] [address], [place] [address] Jun, [facility] [address] [id number] [address] [place] [address], [place] [address] Jun, [facility] [address] [id number] [address] [place] [address] 13 Jun, 2010 [facility] [address] [id number] [address] [place] [address] 16 Apr, 2010 [facility] [address] [id number] [address] [place] [address], [place] [address] Mar, [facility] [address] [id number] [address] [place] [address], [place] [address] Feb, [facility] [address] [id number] [address] [place] [address], [place] [address] January, [facility] [address] [id number] [address] [place] [address], [place] [address] 15 Dec, 2009 [facility] [address] [id number] [address] [place] [address], [place] [address] Nov, [facility] [address] [id number] [address] [place] [address] Aug, [facility] [address] [id number] [address] [place] [address], [place] [address] Aug, [facility] [address] [id number] [address] [place] [address] Aug, [facility] [address] [id number] [address] [place] [address] Jul, [facility] [address] [id number] [address] [place] [address] Jul, [facility] [address] [id number] [address] [place] [address] Jul, [facility] [address] [id number] [address] [place] [address] 30 Jun, 2009 [facility] [address] [id number] [address] [place] [address], [place] [address] 29 Jun, 2009 [facility] [address] [id number] [address] [place] [address] Jun, [facility] [address] [id number] [address] [place] [address] Jun, [facility] [address] [id number] [address] [place] [address] Jun, [facility] [address] [facility] [id number] [address] [place] [address] Jun, [facility] [address] [facility] [id number] [address] [place] [address] Apr, [facility] [address] [facility] [id number] [address] [place] [address] Apr, [facility] [address] [facility] [id number] [address] [place] [address] Feb, [facility] [address] [facility] [id number] [address] [place] [address] January, [facility] [address] [facility] [id number] [address] [place] [address] Dec, IMMUNIZATIONS No Known Immunizations SOCIAL HISTORY Never Assessed REASON FOR VISIT PLAN OF CARE VITAL SIGNS Height 67 in 2013-04-05 Weight 331 lbs 2013-04-05 Temperature 98 degrees Fahrenheit 2013-04-05 Heart Rate 78 bpm 2013-04-05 Respiratory Rate 22 2013-04-05 Blood pressure systolic 126 mmHg 2013-04-05 Blood pressure diastolic 82 mmHg 2013-04-05 MEDICATIONS Unknown Medications RESULTS No Results PROCEDURES Procedure Date Ordered Result Body Site PSYTX PT&/FAMILY 45 MINUTES April 05, 2013 INSTRUCTIONS MEDICATIONS ADMINISTERED No Known Medications MEDICAL (GENERAL) HISTORY Type Description Date Medical History type II diabetes Medical History coronary artery disease stress test Medical History chronic obstructive pulmonary disease (C OPD) Medical History gastroesophageal reflux disease (GERD) Medical History acute renal failure Medical History erectile dysfunction Medical History hyperlipidemia Medical History obesity Medical History skin cancer-basal cell 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
--- OUTSIDE RECORDS SUMMARY | 2020-03-01 17:49 | XMS REPORT ---
Author Author Michele WASHBURN Organization [facility] [place] Address [address] [place] [address] Care Team Providers Care Community Relations Liaison Name Role Phone NOEMI WASHBURN Unavailable PROBLEMS Type Condition ICD9-CM Code PXH68-BZ Code Onset Dates Condition S tatus SNOMED Code Problem Leukocytosis D72.829 Active 7926763 06 Problem Bipolar I disorder, most recent episode (or curr ent) mixed, moderate F31.62 Active 16051289 Problem Reactive airway disease J45.909 Active 334831332577 Problem Anxiety F41.9 Active 20605065 Problem Insomnia, unspecified type G47.00 Act sharon 147108447 Problem Essential hypertension I10 Active 75408554 Problem Morbid obesity E66.01 Active 84126 6002 Problem Skin cancer C44.90 Active 59380196 7 Problem DM neuro manif type II E11.49 Active 06559424 Problem Mild cognitive impairment G31.84 Acti ve 918348146 Problem Benign prostatic hyperplasia with lower urinary tract symptoms, unspecified morphology N40.1 Active 83656 6007 Problem Chronic pain G89.29 Active 8965185 1 Problem Diabetes E11.9 Active 49876433 Problem Retinal edema H35.81 Active 789933 6 Problem Anemia of chronic illness D63.8 Acti ve 083101850 Problem Falling R29.6 Active 427874124 Problem Pressure ulcer of other site, stage 3 L89.893 Active 738684324 Problem 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 Active 544838787 Problem Eye exam abnormal R93.8 Active 16 0509885 Problem Pure hypercholesterolemia E78.00 Acti ve 313262379 Problem Dysuria R30.0 Active 17404221 Problem Bipolar disorder, in partial remission, most rec ent episode depressed F31.75 Active 91001179 Problem Hypokalemia E87.6 Active 34217630 Problem Other iron deficiency anemia D50.8 A ctive 49759504 Problem Eustachian tube dysfunction, unspecified laterality H69.80 Active 89447424 Problem Primary osteoarthritis of right knee M17.11 Active 923340303068517 Problem Cough R05 Active 88130579 Problem Bipolar disorder F31.9 Active 137 67926 Problem Chronic diastolic (congestive) heart failure I50.3 2 Active 410998267 Problem Psychophysiological insomnia F51.04 A ctive 402630088 Problem Gastroesophageal reflux disease without esophagitis K21.9 Active 396565666 Problem Polyneuropathy associated with underlying disease G63 Active 738163902 Problem Other secondary acute gout, 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 0 Active 623499266 Problem Diabetic polyneuropathy associated with type 2 d iabetes mellitus E11.42 Active 94030351 Problem Chronic lymphocytic leukemia C91.10 A ctive 00124535 Problem Bilateral primary osteoarthritis of knee M17.0 Active 322452062 Problem Type 2 diabetes mellitus with diabetic neuropathy, uns pecified E11.40 Active 94626151 Problem intermediate (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 Z79.4 Active 945359868 Problem Lymphocytosis D72.820 Active 053936 09 Problem Mood disorder F39 Active 055913 05 Problem Bipolar I disorder, most recent episode depressed, moderat e F31.32 Active 412559249 ALLERGIES No Information ENCOUNTERS Encounter Location Date Diagnosis [facility] [place] [address] [facility] [id number] [address] [place] [id number] Dec, [facility] [place] [address] [facility] [id number] [address] [place] [address] 17 Dec, 2019 Chronic pain G89.29 [facility] [place] [address] [facility] [id number] [address] [place] [address] 13 Dec, 2019 [facility] [place] [address] [id number] [address] [place] [address] Dec, [facility] [place] [address] [facility] [id number] [address] [place] [address] Dec, Gastroesophageal reflux dise ase without esophagitis K21.9 and Pure hypercholesterolemia E78.00 [facility] [place] [address] [facility] [id number] [address] [place] [address] Dec, Mood disorder F39 [facility] [place] [address] [facility] [id number] [address] [place] [address] 31 Nov, 2019 Other secondary acute gout, 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 [facility] [place] [address] [facility] [id number] [address] [place] [id number] Nov, Gastroesophageal reflux dise ase without esophagitis K21.9 [facility] [place] [address] [facility] [id number] [address] [place] [address] Nov, Chronic pain G89.29 [facility] [place] [address] [facility] [id number] [address] [place] [address] Nov, Bipolar I disorder, most rec ent episode depressed, moderate F31.32 ; Anxiety F41.9 and Mild cognitive impairment G31.84 [place] [address] [facility] [id number] [address] [place] [phone] Nov, [place] [address] [facility] [id number] [address] [place] [address] Nov, Syncope, unspecified syncope type R55 [place] [address] [facility] [id number] [address] [place] [address] Nov, Mood disorder F39 [place] [address] [facility] [id number] [address] [place] [id number] Oct, Chronic pain G89.29 [facility] [place] [address] [facility] [id number] [address] [place] [id number] Oct, [facility] [place] [address] [facility] [id number] [address] [place] [address] Oct, Mood disorder F39 [facility] [place] [address] [facility] [id number] [address] [place] [address] Oct, [place] [address] [facility] [id number] [address] [place] [id number] Oct, Bipolar disorder, in partial remission, most recent episode depressed F31.75 and Mild cognitive impairment G31.84 [place] [address] [facility] [id number] [address] [place] [address] Oct, Mood disorder F39 [facility] [place] [address] [id number] [address] [place] [id number] Sep, [facility] [address] [id number] [address] [place] [phone] Sep, Mood disorder F39 [facility] [place] [address] [id number] [address] [place] [address] Sep, Bipolar disorder, in partial remission, most recent episode depressed F31.75 and Mild cognitive impairment G31.84 [facility] [place] [address] [id number] [address] [place] [phone] Sep, Mood disorder F39 [facility] [place] [address] [id number] [address] [place] [id number] Sep, [facility] [place] [address] [id number] [address] [place] [phone] Sep, Mood disorder F39 [facility] [place] [address] [id number] [address] [place] [id number] Sep, [facility] [place] [address] [id number] [address] [place] [id number] Aug, Mood disorder F39 [facility] [place] [address] [id number] [address] [place] [id number] Aug, [facility] [place] [address] [id number] [address] [place] [id number] Aug, [facility] [place] [address] [id number] [address] [place] [id number] Aug, [facility] [place] [address] [id number] [address] [place] [id number] Aug, [facility] [address] [id number] [address] [place] [phone] Aug, [facility] [place] [address] [id number] [address] [place] [id number] Aug, [facility] [place] [address] [id number] [address] [place] [id number] Aug, [facility] [place] [address] [id number] [address] [place] [address] Aug, Essential hypertension I10 [facility] [place] [address] [id number] [address] [place] [address] Aug, Bipolar disorder, in partial remission, most recent episode depressed F31.75 and Mild cognitive impairment G31.84 [facility] [place] [address] [id number] [address] [place] [id number] Aug, Mood disorder F39 [facility] [place] [address] [id number] [address] [place] [id number] Aug, [facility] [place] [address] [id number] [address] [place] [phone] Aug, Bipolar disorder, in partial remission, most recent episode depressed F31.75 and Mild cognitive impairment G31.84 [facility] [place] [address] [id number] [address] [place] [address] Jul, Bipolar disorder, in partial remission, most recent episode depressed F31.75 and Mild cognitive impairment G31.84 [facility] [place] [address] [id number] [address] [place] [id number] Jul, Psychophysiological insomnia F51.04 [facility] [place] [address] [id number] [address] [place] [id number] Jul, [facility] [place] [address] [id number] [address] [place] [id number] Jul, [facility] [place] [address] [id number] [address] [place] [id number] Jul, [facility] [place] [address] [id number] [address] [place] [id number] Jul, [facility] [place] [address] [id number] [address] [place] [id number] Jul, [place] [address] [facility] [id number] [address] [place] [id number] Jul, [place] [address] [facility] [id number] [address] [place] [id number] Jul, Bipolar disorder, in partial remission, most recent episode depressed F31.75 and Mild cognitive impairment G31.84 [place] [address] [place] [id number] [address] [place] [address] Jul, Chronic pain G89.29 ; Diabet es E11.9 ; Essential hypertension I10 ; Ill feeling R68.89 ; Local infection of the skin and subcutaneous tissue, unspecified L08.9 and Other injury of unspecified body region, initial encounter T14.8XXA [place] [address] [place] [id number] [address] [place] [id number] Jun, Bipolar disorder, in partial remission, most recent episode depressed F31.75 and Mild cognitive impairment G31.84 [place] [address] [facility] [id number] [address] [place] [phone] Jun, [place] [address] [facility] [id number] [address] [place] [address] Jun, Bipolar disorder, in partial remission, most recent episode depressed F31.75 and Mild cognitive impairment G31.84 [place] [address] [place] [id number] [address] [place] [id number] Jun, Psychophysiological insomnia F51.04 [place] [address] [facility] [id number] [address] [place] [address] Jun, Psychophysiological insomnia F51.04 ; Chronic pain G89.29 ; Bipolar I disorder, most recent episode (or current) mixed, moderate F31.62 ; 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 ; Polyneuropathy associated with underlying disease G63 ; Type 2 diabetes mellitus with diabetic neuropathy, unspecified E11.40 ; 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 and Hyperglycemia R73.[address] [id number] [address] [place] [address] Jun, Bipolar disorder, in partial remission, most recent episode depressed F31.75 and Mild cognitive impairment G31.84 [facility] [place] [address] [id number] [address] [place] [phone] Jun, [facility] [place] [address] [facility] [id number] [address] [place] [id number] Jun, Bipolar disorder F31.9 [facility] [place] [address] [facility] [id number] [address] [place] [id number] May, Bipolar disorder, in partial remission, most recent episode depressed F31.75 and Mild cognitive impairment G31.84 [facility] [place] [address] [facility] [id number] [address] [place] [id number] May, [facility] [place] [address] [facility] [id number] [address] [place] [id number] Apr, Chronic pain G89.29 and Bipo lar disorder F31.9 [facility] [place] [address] [id number] [address] [place] [phone] Mar, Bipolar disorder F31.9 and C hronic pain G89.29 [facility] [place] [address] [facility] [id number] [address] [place] [phone] Feb, Bipolar disorder F31.9 [facility] [place] [address] [id number] [address] [place] [id number] Feb, Cellulitis of right upper ex tremity L03.113 and Skin abrasion T14.8XXA [facility] [place] [address] [id number] [address] [place] [id number] Feb, Bipolar disorder, in partial remission, most recent episode depressed F31.75 and Mild cognitive impairment G31.84 [facility] [place] [address] [id number] [address] [place] [address] Feb, Chronic pain G89.29 [facility] [place] [address] [facility] [id number] [address] [place] [address] Feb, Bipolar disorder, in partial remission, most recent episode depressed F31.75 and Mild cognitive impairment G31.84 [facility] [place] [address] [id number] [address] [place] [id number] January, Bipolar disorder, in partial remission, most recent episode depressed F31.75 and Mild cognitive impairment G31.84 [facility] [place] [address] [id number] [address] [place] [id number] January, Chronic pain G89.29 and Bipo lar disorder F31.9 [facility] [place] [address] [id number] [address] [place] [id number] January, Bipolar disorder, in partial remission, most recent episode depressed F31.75 and Mild cognitive impairment G31.84 [facility] [place] [address] [id number] [address] [place] [address] Dec, [facility] [place] [address] [id number] [address] [place] [address] Dec, Chronic pain G89.29 and Bipo lar disorder F31.9 [facility] [place] [address] [id number] [address] [place] [address] Dec, Edema of both lower extremit ies R60.0 [facility] [place] [address] [id number] [address] [place] [id number] Dec, Bipolar disorder F31.9 [facility] [place] [address] [id number] [address] [place] [address] Dec, Bipolar disorder, in partial remission, most recent episode depressed F31.75 and Mild cognitive impairment G31.84 [facility] [place] [address] [id number] [address] [place] [address] Nov, [facility] [place] [address] [id number] [address] [place] [address] Nov, Chronic pain G89.29 [facility] [place] [address] [id number] [address] [place] [address] Nov, Bipolar disorder, in partial remission, most recent episode depressed F31.75 and Mild cognitive impairment G31.84 [place] [address] [place] [id number] [address] [place] [address] Nov, Bipolar disorder F31.9 [place] [address] [place] [id number] [address] [place] [id number] 04 Nov, 2018 [facility] ; Polyneuropathy associated with [...] N40.1 and Essential hypertension I10 [place] [id number] [place] [address] Oct, Chronic pain G89.29 [place] [address] [place] [id number] [address] [place] [address] 18 Oct, 2018 Diabetes E11.9 [place] [address] [place] [id number] [address] [place] [phone] Oct, Bipolar I disorder, most rec ent episode (or current) mixed, moderate F31.62 and Mild cognitive impairment G31.84 [place] [address] [place] [id number] [address] [place] [address] Oct, Bipolar I disorder, most rec ent episode (or current) mixed, moderate F31.62 and Mild cognitive impairment G31.84 [place] [address] [place] [id number] [address] [place] [address] Sep, Bipolar I disorder, most rec ent episode (or current) mixed, moderate F31.62 and Mild cognitive impairment G31.84 [place] [address] [place] [id number] [address] [place] [address] Sep, [facility] [place] [address] [place] [id number] [address] [place] [address] Sep, Diabetes E11.9 ; Hypoxia R09 .02 ; Hyperglycemia R73.9 ; Therapeutic drug monitoring Z51.81 ; BMI 50.0-59.9, adult Z68.43 and Skin cancer C44.90 [place] [address] [place] [id number] [place] [address] Sep, Chronic pain G89.29 [place] [address] [place] [id number] [place] [address] Sep, Bipolar I disorder, most rec ent episode (or current) mixed, moderate F31.62 [place] [address] [place] [id number] [place] [address] Sep, [place] [address] [place] [id number] [place] [address] Sep, [place] [address] [place] [id number] [address] [place] [address] Aug, Chronic pain G89.29 [place] [address] [place] [id number] [address] [place] [address] Aug, Bipolar I disorder, most rec ent episode (or current) mixed, moderate F31.62 [place] [address] [place] [id number] [address] [place] [address] Aug, Bipolar I disorder, most rec ent episode (or current) mixed, moderate F31.62 and Mild cognitive impairment G31.84 [place] [address] [place] [id number] [address] [place] [address] Jul, [place] [address] [place] [id number] [address] [place] [id number] Jul, Chronic pain G89.29 [facility] [place] [address] [place] [id number] [address] [place] [address] Jul, Bipolar I disorder, most rec ent episode (or current) mixed, moderate F31.62 and Mild cognitive impairment G31.84 [place] [address] [facility] [id number] [address] [place] [address] Jul, Bipolar I disorder, most rec ent episode (or current) mixed, moderate F31.62 and MCI (mild cognitive impairment) G31.84 [place] [address] [facility] [id number] [address] [place] [address] Jul, [facility] [place] [address] [facility] [id number] [address] [place] [id number] Jul, [place] [address] [place] [id number] [place] [address] Jul, Bipolar I disorder, most rec ent episode (or current) mixed, moderate F31.62 [place] [address] [place] [id number] [address] [place] [address] Jul, Chronic pain G89.29 [place] [address] [facility] [id number] [address] [place] [address] Jun, Bipolar I disorder, most rec ent episode (or current) mixed, moderate F31.62 [place] [address] [place] [id number] [address] [place] [phone] Jun, Pre-procedure lab exam Z01.8 12 [place] [address] [place] [id number] [address] [place] [address] Jun, [facility] [address] [id number] [place] [id number] Jun, [place] [address] [facility] [id number] [address] [place] [address] Jun, [place] [address] [place] [id number] [address] [place] [address] Jun, Forgetfulness R68.89 ; Pre-s yncope R55 ; Localized edema R60.0 ; Other iron deficiency anemia D50.8 and BMI 50.0-59.9, adult Z68.43 [facility] [place] [address] [facility] [id number] [address] [place] [address] Jun, Chronic pain G89.29 [facility] [place] [address] [facility] [id number] [address] [place] [id number] Jun, Chronic pain G89.29 [facility], [place], [facility] [address] [facility] [id number] [address] [place] [phone] Jun, Bipolar I disorder, most rec ent episode (or current) mixed, moderate F31.62 [facility], [place], [facility] [address] [facility] [id number] [address] [place] [phone] May, Chronic pain G89.29 [facility], [place], [facility] [address] [facility] [id number] [address] [place] [id number] Apr, [place] [address] [facility] [id number] [address] [place] [address] Apr, Chronic pain G89.29 [facility] [place] [address] [facility] [id number] [address] [place] [id number] Apr, Primary osteoarthritis of ri ght knee M17.11 [facility] [place] [address] [facility] [id number] [address] [place] [phone] Mar, [facility] [place] [address] [facility] [id number] [address] [place] [phone] Mar, BMI 50.0-59.9, adult Z68.43 and Bipolar disorder, in partial remission, most recent episode depressed F31.75 [facility] [place] [address] [facility] [id number] [address] [place] [address] Mar, Diabetes E11.9 ; Pure hyperc holesterolemia E78.00 ; Essential hypertension I10 ; Nausea with vomiting, unspecified R11.2 and Headache, unspecified headache type R51 [facility] [place] [address] [facility] [id number] [address] [place] [id number] Mar, Bipolar I disorder, most rec ent episode (or current) mixed, moderate F31.62 [facility] [place] [address] [id number] [address] [place] [id number] 16 Mar, 2018 Bipolar I disorder, most rec ent episode (or current) mixed, moderate F31.62 [facility] [place] [address] [facility] [id number] [address] [place] [phone] Mar, Chronic pain G89.29 [facility] [place] [address] [facility] [id number] [address] [place] [id number] Mar, Bipolar I disorder, most rec ent episode (or current) mixed, moderate F31.62 [facility] [place] [address] [facility] [id number] [address] [place] [id number] Feb, Bipolar I disorder, most rec ent episode (or current) mixed, moderate F31.62 [facility] [place] [address] [facility] [id number] [address] [place] [id number] Feb, Chronic pain G89.29 [facility] [place] [address] [facility] [id number] [address] [place] [id number] Feb, Decubitus ulcer of right josselin t, stage 3 L89.893 and BMI 50.0-59.9, adult Z68.43 [facility] [place] [address] [facility] [id number] [address] [place] [phone] Feb, Bipolar I disorder, most rec ent episode (or current) mixed, moderate F31.62 [facility] [place] [address] [facility] [id number] [address] [place] [phone] Feb, [facility] [place] [address] [facility] [id number] [address] [place] [phone] January, [facility] [place] [address] [facility] [id number] [address] [place] [phone] January, Chronic pain G89.29 [facility] [place] [address] [facility] [id number] [address] [place] [address] January, Bipolar I disorder, most rec ent episode (or current) mixed, moderate F31.62 [place] [address] [place] [id number] [address] [place] [id number] January, Bipolar I disorder, most rec ent episode (or current) mixed, moderate F31.62 [place] [address] [place] [id number] [address] [place] [phone] Dec, Bipolar I disorder, most rec ent episode (or current) mixed, moderate F31.62 and BMI 50.0-59.9, adult Z68.43 [place] [address] [address] Dec, Bipolar I disorder, most rec ent episode (or current) mixed, moderate F31.62 [place] [address] [address] Dec, Chronic pain G89.29 [place] [address] [address] Dec, DM neuro manif type II E11.4 9 ; Right flank pain R10.9 ; intermediate 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 Z79.891 ; Encounter for medication monitoring Z51.81 and BMI 50.0-59.9, adult Z68.43 [place] [address] [address] Dec, Bipolar I disorder, most rec ent episode (or current) mixed, moderate F31.62 [place] [address] [place] [id number] [address] [place] [address] Nov, Bipolar I disorder, most rec ent episode (or current) mixed, moderate F31.62 [place] [address] [place] [id number] [address] [place] [address] Nov, Chronic pain G89.29 [place] [address] [place] [id number] [place] [address] Nov, Bipolar I disorder, most rec ent episode (or current) mixed, moderate F31.62 [place] [address] [place] [id number] [place] [address] Nov, Hypokalemia E87.6 [place] [address] [place] [id number] [place] [address] Nov, Bipolar I disorder, most rec ent episode (or current) mixed, moderate F31.62 [place] [address] [address] Oct, Chronic pain G89.29 [place] [address] [address] Oct, BMI 50.0-59.9, adult Z68.43 and Bipolar I disorder, most recent episode (or current) mixed, moderate F31.62 [place] [address] [address] Oct, Bipolar I disorder, most rec ent episode (or current) mixed, moderate F31.62 [place] [address] [address] Oct, [place] [address] [address] Oct, Hypokalemia E87.6 [place] [address] [place] [id number] [place] [address] Oct, DM neuro manif type II E11.4 9 [place] [address] [address] Oct, Bipolar I disorder, most rec ent episode (or current) mixed, moderate F31.62 [place] [address] [address] Oct, Bipolar I disorder, most rec ent episode (or current) mixed, moderate F31.62 [place] [address] [place] [id number] [place] [address] 14 Oct, 2017 Hyperkalemia E87.5 ; Falling R29.6 ; BMI 50.0-59.9, adult Z68.43 and Acute left ankle pain M25.572 [place] [id number] [place] [id number] 08 Oct, 2017 DM neuro manif type II E11.4 9 [place] [address] [place] [id number] [address] [place] [address] Oct, [place] [address] [place] [id number] [place] [address] Sep, Chronic pain G89.29 [place] [address] [place] [id number] [address] [place] [phone] Sep, [place] [address] [place] [id number] [place] [address] Sep, Bilateral primary osteoarthr itis of knee M17.0 [place] [address] [address] Sep, Generalized edema R60.1 [place] [address] [address] 16 Sep, 2017 Bipolar I disorder, most rec ent episode (or current) mixed, moderate F31.62 [place] [address] [address] 15 Sep, 2017 Hypoxia R09.02 ; Other hyper volemia E87.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 ; Anemia of chronic illness D63.8 and BMI 50.0- 59.9, adult Z68.43 [place] [address] [address] Sep, [place] [address] [place] [id number] [place] [address] Sep, Bipolar I disorder, most rec ent episode (or current) mixed, moderate F31.62 [place] [address] [place] [address] Aug, Chronic pain G89.29 [facility] [place] [address] [facility] [id number] [address] [place] [phone] Aug, Generalized edema R60.1 [facility] [place] [address] [facility] [id number] [address] [place] [address] Aug, [facility] [place] [address] [facility] [id number] [address] [place] [id number] Aug, [facility] [place] [address] [facility] [id number] [address] [place] [address] 14 Aug, 2017 Bipolar I disorder, most rec ent episode (or current) mixed, moderate F31.62 [place] [address] [place] [id number] [address] [place] [phone] 07 Aug, 2017 Bipolar I disorder, most rec ent episode (or current) mixed, moderate F31.62 [place] [address] [place] [id number] [address] [place] [id number] Aug, Chronic pain G89.29 [facility] [place] [address] [facility] [id number] [address] [place] [address] 30 Jul, 2017 Bipolar I disorder, most rec ent episode (or current) mixed, moderate F31.62 [facility] [place] [address] [facility] [id number] [address] [place] [address] Jul, Bipolar I disorder, most rec ent episode (or current) mixed, moderate F31.62 and BMI 60.0-69.9, adult Z68.44 [facility] [place] [address] [facility] [id number] [address] [place] [id number] 16 Jul, 2017 Bipolar I disorder, most rec ent episode (or current) mixed, moderate F31.62 [facility] [place] [address] [facility] [id number] [address] [place] [id number] 06 Jul, 2017 Chronic pain G89.29 [facility] [place] [address] [place] [id number] [address] [place] [address] Jul, Bipolar I disorder, most rec ent episode (or current) mixed, moderate F31.62 [facility] [place] [address] [facility] [id number] [address] [place] [address] Jun, Polyneuropathy associated wi th underlying disease G63 and Diabetes E11.9 [facility] [place] [address] [facility] [id number] [address] [place] [id number] 16 Jun, 2017 Bipolar I disorder, most rec ent episode (or current) mixed, moderate F31.62 [facility] [place] [address] [facility] [id number] [address] [place] [address] Jun, Chronic pain G89.29 [facility] [place] [address] [facility] [id number] [address] [place] [address] May, Bipolar I disorder, most rec ent episode (or current) mixed, moderate F31.62 [facility] [place] [address] [place] [id number] [address] [place] [id number] May, Bipolar I disorder, most rec ent episode (or current) mixed, moderate F31.62 [facility] [place] [address] [facility] [id number] [address] [place] [phone] 20 May, 2017 Diabetic polyneuropathy asso ciated with type 2 diabetes mellitus E11.42 [facility] [place] [address] [facility] [id number] [address] [place] [id number] 18 May, 2017 Bipolar I disorder, most rec ent episode (or current) mixed, moderate F31.62 [facility] [place] [address] [facility] [id number] [address] [place] [id number] 13 May, 2017 Bipolar I disorder, most rec ent episode (or current) mixed, moderate F31.62 [facility] [place] [address] [facility] [id number] [address] [place] [id number] May, Chronic pain G89.29 [facility] [place] [address] [facility] [id number] [address] [place] [phone] Apr, Bipolar I disorder, most rec ent episode (or current) mixed, moderate F31.62 [facility] [place] [address] [id number] [address] [place] [id number] Apr, [facility] [place] [address] [id number] [address] [place] [id number] Apr, Chronic pain G89.29 and DM n euro manif type II E11.49 [facility] [place] [address] [id number] [address] [place] [id number] Apr, [facility] [place] [address] [id number] [address] [place] [phone] Apr, Bipolar I disorder, most rec ent episode (or current) mixed, moderate F31.62 [facility] [place] [address] [facility] [id number] [address] [place] [id number] Apr, Chronic pain G89.29 [facility] [place] [address] [facility] [id number] [address] [place] [id number] Apr, Iliotibial band syndrome, le ft M76.32 [facility] [place] [address] [facility] [id number] [address] [place] [id number] Apr, Bipolar I disorder, most rec ent episode (or current) mixed, moderate F31.62 [facility] [place] [address] [facility] [id number] [address] [place] [id number] Mar, Bipolar I disorder, most rec ent episode (or current) mixed, moderate F31.62 [facility] [place] [address] [facility] [id number] [address] [place] [phone] Mar, Bipolar I disorder, most rec ent episode (or current) mixed, moderate F31.62 [facility] [place] [address] [facility] [id number] [address] [place] [phone] Mar, [facility] [place] [address] [facility] [id number] [address] [place] [phone] Mar, Bipolar I disorder, most rec ent episode (or current) mixed, moderate F31.62 [facility] [place] [address] [facility] [id number] [address] [place] [phone] Mar, Chronic pain G89.29 [facility] [place] [address] [facility] [id number] [address] [place] [id number] Mar, Bipolar I disorder, most rec ent episode (or current) mixed, moderate F31.62 [facility] [place] [address] [facility] [id number] [address] [place] [id number] Mar, Bipolar I disorder, most rec ent episode (or current) mixed, moderate F31.62 [facility] [place] [address] [facility] [id number] [address] [place] [id number] Mar, Acute pain of left knee M25. 562 ; Left hip pain M25.552 ; Generalized edema R60.1 and Tongue swelling R22.0 [facility] [place] [address] [facility] [id number] [address] [place] [id number] Mar, [facility] [place] [address] [facility] [id number] [address] [place] [id number] Feb, Chronic pain G89.29 [facility] [place] [address] [facility] [id number] [address] [place] [phone] Feb, Diabetes E11.9 [facility] [place] [address] [facility] [id number] [address] [place] [phone] January, Chronic pain G89.29 [facility] [place] [address] [facility] [id number] [address] [place] [id number] January, [facility] [place] [address] [facility] [id number] [address] [place] [address] January, Bipolar I disorder, most rec ent episode (or current) mixed, moderate F31.62 [facility] [place] [address] [facility] [id number] [address] [place] [id number] Dec, Bipolar I disorder, most rec ent episode (or current) mixed, moderate F31.62 [facility] [place] [address] [facility] [id number] [address] [place] [phone] 24 Apr, 2017 Chronic pain G89.29 [facility] [place] [address] [id number] [address] [place] [id number] Dec, Bipolar I disorder, most rec ent episode (or current) mixed, moderate F31.62 [facility] [place] [address] [facility] [id number] [address] [place] [address] Dec, Diabetes E11.9 ; Essential h ypertension I10 ; Chronic pain G89.29 and Morbid obesity E66.01 [facility] [place] [address] [facility] [id number] [address] [place] [id number] Dec, [facility] [place] [address] [facility] [id number] [address] [place] [phone] Dec, Bipolar I disorder, most rec ent episode (or current) mixed, moderate F31.62 [facility] [place] [address] [facility] [id number] [address] [place] [id number] Dec, Bipolar I disorder, most rec ent episode (or current) mixed, moderate F31.62 [facility] [place] [address] [facility] [id number] [address] [place] [phone] Nov, Chronic pain G89.29 [facility] [place] [address] [facility] [id number] [address] [place] [address] Nov, Bipolar I disorder, most rec ent episode (or current) mixed, moderate F31.62 [facility] [place] [address] [facility] [id number] [address] [place] [id number] Nov, [facility] [place] [address] [facility] [id number] [address] [place] [id number] Nov, Bipolar I disorder, most rec ent episode (or current) mixed, moderate F31.62 [facility] [place] [address] [facility] [id number] [address] [place] [phone] Nov, Bipolar I disorder, most rec ent episode (or current) mixed, moderate F31.62 [facility] [place] [address] [facility] [id number] [address] [place] [id number] Nov, [facility] [place] [address] [id number] [address] [place] [phone] Nov, [facility] [place] [address] [id number] [address] [place] [phone] Nov, [facility] [place] [address] [facility] [id number] [address] [place] [phone] Oct, Chronic pain G89.29 [facility] [place] [address] [facility] [id number] [address] [place] [phone] Oct, Bipolar I disorder, most rec ent episode (or current) mixed, moderate F31.62 [facility] [place] [address] [id number] [address] [place] [phone] Oct, [facility] [place] [address] [facility] [id number] [address] [place] [address] Oct, Chronic pain G89.29 ; Diabet es E11.9 ; Anxiety F41.9 and 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 [facility] [place] [address] [facility] [id number] [address] [place] [phone] Oct, [facility] [place] [address] [facility] [id number] [address] [place] [id number] Oct, Diabetes E11.9 [facility] [place] [address] [facility] [id number] [address] [place] [id number] Oct, Bipolar I disorder, most rec ent episode (or current) mixed, moderate F31.62 [facility] [place] [address] [facility] [id number] [address] [place] [phone] Sep, Chronic pain G89.29 [facility] [place] [address] [facility] [id number] [address] [place] [phone] Sep, Chronic pain G89.29 [facility], [place], [facility] [address] [facility] [id number] [address] [place] [id number] Aug, Chronic pain G89.29 [facility], [place], [facility] [address] [facility] [id number] [address] [place] [id number] Jul, [facility], [place], [facility] [address] [place] [id number] [address] [place] [id number] Jul, Diabetes E11.9 [facility], [place], [facility] [address] [place] [id number] [address] [place] [phone] Jul, Chronic pain G89.29 [place] [address] [place] [id number] [place] [phone] Jul, Bipolar I disorder, most rec ent episode (or current) mixed, moderate F31.62 [place] [address] [place] [id number] [place] [phone] Jun, Bipolar I disorder, most rec ent episode (or current) mixed, moderate F31.62 [place] [address] [place] [id number] [address] [place] [id number] Jun, [place] [address] [place] [id number] [address] [place] [phone] Jun, Bipolar I disorder, most rec ent episode (or current) mixed, moderate F31.62 [place] [address] [place] [id number] [address] [place] [address] May, Insomnia, unspecified type G 47.00 [place] [address] [place] [id number] [address] [place] [address] May, Bipolar I disorder, most rec ent episode (or current) mixed, moderate F31.62 [place] [address] [place] [id number] [address] [place] [id number] 14 May, 2016 [place] [address] [place] [id number] [place] [id number] 08 May, 2016 Bipolar I disorder, most rec ent episode (or current) mixed, moderate F31.62 [place] [address] [place] [id number] [address] [place] [phone] May, Diabetes E11.9 and Essential hypertension I10 [facility] [place] [address] [id number] [address] [place] [phone] Apr, Chronic pain G89.29 [facility] [place] [address] [facility] [id number] [address] [place] [phone] Apr, Bipolar I disorder, most rec ent episode (or current) mixed, moderate F31.62 [place] [address] [facility] [id number] [address] [place] [id number] Apr, [facility] [place] [address] [facility] [id number] [address] [place] [id number] Apr, [place] [address] [facility] [id number] [address] [place] [address] Mar, Chronic pain G89.29 ; Headac he, unspecified headache type R51 ; Neuropathy G62.9 ; Pain of right hip joint M25.551 and Essential hypertension I10 [place] [address] [facility] [id number] [address] [place] [address] Mar, Chronic pain G89.29 [place] [address] [facility] [id number] [address] [place] [phone] Mar, Bipolar I disorder, most rec ent episode (or current) mixed, moderate F31.62 [place] [address] [facility] [id number] [address] [place] [id number] Feb, Bipolar I disorder, most rec ent episode (or current) mixed, moderate F31.62 and Insomnia, unspecified type G47.00 [place] [address] [id number] [address] [place] [id number] Feb, Chronic pain G89.29 [place] [address] [facility] [id number] [address] [place] [id number] Feb, Bipolar I disorder, most rec ent episode (or current) mixed, moderate F31.62 [place] [address] [facility] [id number] [address] [place] [id number] January, Bipolar I disorder, most rec ent episode (or current) mixed, moderate F31.62 [facility] [place] [address] [id number] [address] [place] [id number] January, Chronic pain G89.29 [facility] [place] [address] [facility] [id number] [address] [place] [phone] January, Chronic pain G89.29 and Esse ntial hypertension I10 [facility] [place] [address] [id number] [address] [place] [id number] January, Bipolar I disorder, most rec ent episode (or current) mixed, moderate F31.62 [facility] [place] [address] [id number] [address] [place] [id number] Dec, [facility] [place] [address] [facility] [id number] [address] [place] [id number] Dec, [facility] [place] [address] [facility] [id number] [address] [place] [phone] Dec, [facility] [place] [address] [facility] [id number] [address] [place] [id number] Dec, [facility] [place] [address] [facility] [id number] [address] [place] [phone] Nov, Reactive airway disease J45. 909 [facility] [place] [address] [facility] [id number] [address] [place] [id number] Nov, [facility] [place] [address] [id number] [address] [place] [phone] Nov, [facility] [place] [address] [facility] [id number] [address] [place] [id number] Nov, [facility] [place] [address] [facility] [id number] [address] [place] [phone] Nov, [facility] [place] [address] [facility] [id number] [address] [place] [address] Nov, Onychomycosis B35.1 ; Hammer toe M20.40 ; [place] or callus L84 and DM neuro manif type II E11.49 [facility] [place] [address] [place] [id number] [address] [place] [phone] Nov, Chronic pain G89.29 ; Leukoc ytosis D72.829 and Diabetes E11.9 [facility] [place] [address] [facility] [id number] [address] [place] [phone] Nov, [facility] [place] [address] [place] [id number] [address] [place] [phone] Oct, Bronchitis J40 [facility] [place] [address] [place] [id number] [address] [place] [phone] Oct, [place] [address] [address] Oct, [place] [address] [address] Oct, Mastoiditis, unspecified lat erality H70.90 and Type 2 diabetes mellitus with complication E11.8 [place] [address] [place] [id number] [address] [place] [address] Sep, [place] [address] [id number] Sep, Dysuria R30.0 ; Cough R05 ; Benign prostatic hyperplasia with lower urinary tract symptoms, unspecified morphology N40.1 ; Hypokalemia E87.6 and Eustachian tube dysfunction, unspecified laterality H69.80 [place] [id number] [place] [address] Sep, Moderate mixed bipolar I dis order F31.62 [place] [address] [address] Sep, Hypokalemia E87.6 [place] [address] [place] [id number] [address] [place] [phone] Sep, [place] [address] [id number] Sep, Upper respiratory tract infe ction, unspecified type J06.9 [facility] [place] [address] [id number] [address] [place] [id number] Aug, [facility] [place] [address] [id number] [address] [place] [phone] Aug, Dysuria R30.0 [facility] [place] [address] [id number] [address] [place] [phone] Aug, [facility] [place] [address] [id number] [address] [place] [id number] Jul, [facility] [place] [address] [id number] [address] [place] [id number] Jul, [facility] [place] [address] [id number] [address] [place] [id number] Jul, [facility] [place] [address] [id number] [address] [place] [phone] Jul, [facility] [place] [address] [id number] [address] [place] [id number] Jun, [facility] [place] [address] [id number] [address] [place] [id number] Jun, [facility] [place] [address] [id number] [address] [place] [id number] Jun, [facility] [place] [address] [id number] [address] [place] [phone] May, [facility] [place] [address] [id number] [address] [place] [phone] May, Bipolar I disorder, most rec ent episode (or current) mixed, moderate 296.62 [facility] [place] [address] [id number] [address] [place] [id number] 16 May, 2015 [facility] [place] [address] [id number] [address] [place] [phone] May, Bipolar I disorder, most rec ent episode (or current) mixed, moderate 296.62 and Major depressive disorder, recurrent episode, severe, specified as with psychotic behavior 296.34 [facility] [place] [address] [facility] [id number] [address] [place] [phone] May, Bipolar I disorder, most rec ent episode (or current) mixed, moderate 296.62 [facility] [place] [address] [facility] [id number] [address] [place] [phone] May, [facility] [place] [address] [facility] [id number] [address] [place] [phone] Apr, [facility] [place] [address] [facility] [id number] [address] [place] [phone] Apr, [facility] [place] [address] [place] [id number] [address] [place] [id number] Apr, Unspecified disorder of kidn ey and ureter 593.9 and Diabetes mellitus type 2, uncontrolled 250.02 [facility] [place] [address] [place] [id number] [address] [place] [phone] Apr, [facility] [place] [address] [facility] [id number] [address] [place] [phone] Apr, [facility] [place] [address] [place] [id number] [address] [place] [phone] Apr, [facility] [place] [address] [facility] [id number] [address] [place] [id number] Apr, [facility] [place] [address] [place] [id number] [address] [place] [id number] Apr, Diabetes mellitus type II, u ncontrolled 250.02 [facility] [place] [address] [facility] [id number] [address] [place] [phone] Apr, [facility] [place] [address] [facility] [id number] [address] [place] [phone] Mar, [facility] [place] [address] [place] [id number] [address] [place] [phone] Mar, [facility] [place] [address] [facility] [id number] [address] [place] [id number] Mar, [facility] [place] [address] [place] [id number] [address] [place] [phone] Mar, Major depressive disorder, r ecurrent episode, severe, specified as with psychotic behavior 296.34 and Bipolar I disorder, most recent episode (or current) mixed, moderate 296.62 [facility] [place] [address] [place] [address] Mar, Diabetes 250.00 ; Anuria 788 .5 ; Nausea and vomiting 787.01 and Diarrhea 787.91 [facility] [place] [address] [place] [id number] [address] [place] [id number] Mar, Diabetes 250.00 [facility] [place] [address] [place] [id number] [address] [place] [address] Mar, [facility] [place] [address] [place] [id number] [address] [place] [address] Mar, Diabetes 250.00 [facility] [place] [address] [place] [id number] [address] [place] [id number] Mar, [facility] [place] [address] [place] [id number] [address] [place] [phone] Mar, [facility] [place] [address] [place] [id number] [address] [place] [id number] Mar, [facility] [place] [address] [place] [id number] [address] [place] [id number] Mar, [facility] [place] [address] [place] [id number] [address] [place] [id number] Mar, Bipolar I disorder, most rec ent episode (or current) mixed, moderate 296.62 and Major depressive disorder, recurrent episode, severe, specified as with psychotic behavior 296.34 [facility] [place] [address] [place] [id number] [address] [place] [id number] Mar, Magnesium deficiency 275.2 ; Hypokalemia 276.8 ; Nausea & vomiting 787.01 and Diabetes mellitus type 2, uncontrolled 250.02 [place] [address] [address] Feb, [facility] [place] [address] [address] Feb, Bipolar I disorder, most rec ent episode (or current) mixed, moderate 296.62 [place] [address] [address] Feb, Nausea and vomiting 787.01 ; Left elbow pain 719.42 ; Anuria 788.5 and Diabetes 250.00 [place] [address] [address] Feb, [place] [address] [address] Feb, Hypopotassemia 276.8 and Hyp okalemia 276.[address] [address] Feb, Hypopotassemia 276.8 and Hyp okalemia 276.8 [place] [address] [address] Feb, Seborrheic keratoses 702.19 [place] [address] [address] Feb, Hypopotassemia 276.8 and Low magnesium levels 275.2 [place] [address] [address] January, [place] [address] [address] January, [place] [address] [address] January, [place] [address] [address] January, Scalp lesion 709.9 [facility] [place] [address] [id number] [address] [place] [phone] January, [facility] [place] [address] [id number] [address] [place] [phone] Dec, Tear of medial cartilage or meniscus of knee, current 836.0 and 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 [facility] [place] [address] [id number] [address] [place] [phone] Dec, [facility] [place] [address] [id number] [address] [place] [phone] Dec, [facility] [place] [address] [id number] [address] [place] [id number] Dec, Squamous cell carcinoma, 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 [facility] [place] [address] [id number] [address] [place] [phone] Dec, [facility] [place] [address] [id number] [address] [place] [phone] Dec, [facility] [place] [address] [id number] [address] [place] [phone] Nov, [facility] [place] [address] [id number] [address] [place] [phone] Nov, [facility] [place] [address] [id number] [address] [place] [id number] Nov, [facility] [place] [address] [id number] [address] [place] [phone] Nov, [facility] [place] [address] [id number] [address] [place] [phone] Nov, [facility] [place] [address] [id number] [address] [place] [id number] Nov, [facility] [place] [address] [id number] [address] [place] [id number] Nov, [facility] [address] [id number] [address] [place] [address], [place] [id number] Nov, 2014 [facility] [address] [id number] [address] [place] [address], [place] [id number] Nov, 2014 [facility] [address] [id number] [address] [place] [address], [place] [id number] Nov, 2014 [facility] [address] [id number] [address] [place] [address], [place] [address] Nov, 2014 [facility] [address] [id number] [address] [place] [address], [place] [address] Nov, 2014 [facility] [address] [id number] [address] [place] [address], [place] [id number] Oct, 2014 [facility] [address] [id number] [address] [place] [address], [place] [id number] Oct, 2014 [facility] [address] [id number] [address] [place] [address], [place] [id number] Oct, 2014 [facility] [address] [id number] [address] [place] [address], [place] [id number] Oct, 2014 [facility] [address] [id number] [address] [place] [address], [place] [address] Oct, 2014 [facility] [address] [id number] [address] [place] [id number] Oct, 2014 [facility] [address] [id number] [address] [place] [id number] Oct, 2014 [facility] [address] [id number] [address] [place] [address], [place] [id number] Oct, 2014 [facility] [address] [id number] [address] [place] [phone] Oct, 2014 [facility] [address] [id number] [address] [place] [id number] Sep, [facility] [address] [id number] [address] [place] [id number] Sep, [facility] [address] [id number] [address] [place] [address], [place] [id number] Sep, [facility] [address] [id number] [address] [place] [address], [place] [id number] Sep, [facility] [address] [id number] [address] [place] [address], [place] [id number] Sep, [facility] [address] [id number] [address] [place] [address], [place] [id number] Sep, [facility] [address] [id number] [address] [place] [address], [place] [phone] Sep, [facility] [address] [id number] [address] [place] [address], [place] [id number] Sep, [facility] [address] [id number] [address] [place] [address], [place] [id number] Sep, [facility] [address] [id number] [address] [place] [address], [place] [id number] Sep, [facility] [address] [id number] [address] [place] [address], [place] [id number] Sep, [facility] [address] [id number] [address] [place] [address], [place] [id number] Sep, [facility] [address] [id number] [address] [place] [address], [place] [address] Sep, [facility] [address] [id number] [address] [place] [address], [place] [id number] Sep, [facility] [address] [id number] [address] [place] [address], [place] [id number] Sep, [facility] [address] [id number] [address] [place] [address], [place] [id number] Sep, [facility] [address] [id number] [address] [place] [address], [place] [address] Aug, [facility] [address] [id number] [facility] [place] [address] Aug, [facility] [address] [id number] [facility] [place] [id number] Aug, [facility] [address] [id number] [facility] [place] [id number] Aug, [facility] [address] [id number] [facility] [place] [id number] Aug, [facility] [address] [id number] [facility] [place] [address] Aug, [facility] [address] [id number] [facility] [place] [address] Aug, [facility] [address] [id number] [facility] [place] [address] Aug, [facility] [address] [id number] [address] [place] [address], [place] [address] Aug, [facility] [address] [id number] [address] [place] [address], [place] [address] Aug, [facility] [address] [id number] [address] [place] [address], [place] [id number] Aug, [facility] [place] [place], [place] [id number] Aug, [facility] [address] [id number] [address] [place] [address], [place] [id number] Aug, [facility] [address] [id number] [address] [place] [address], [place] [id number] Aug, [facility] [address] [id number] [facility] [place] [address] Aug, [facility] [address] [id number] [facility] [place] [id number] Aug, [facility] [address] [id number] [facility] [place] [address] Aug, [facility] [address] [id number] [address] [place] [address], [place] [id number] Aug, [facility] [address] [id number] [address] [place] [address], [place] [id number] Aug, [facility] [address] [id number] [address] [place] [address], [place] [id number] Aug, [facility] [address] [id number] [address] [place] [address], [place] [address] Aug, [facility] [address] [id number] [address] [place] [address], [place] [address] Aug, [facility] [address] [id number] [address] [place] [address], [place] [id number] Aug, [facility] [address] [id number] [address] [place] [address], [place] [id number] Aug, [facility] [address] [id number] [address] [place] [address], [place] [id number] Aug, [facility] [address] [id number] [address] [place] [address], [place] [id number] Aug, [facility] [address] [id number] [address] [place] [address], [place] [id number] Aug, [facility] [address] [id number] [address] [place] [address], [place] [address] Aug, [facility] [address] [id number] [address] [place] [address], [place] [address] Aug, [facility] [address] [id number] [address] [place] [address], [place] [address] Aug, [facility] [address] [id number] [address] [place] [address], [place] [address] Jul, [facility] [address] [id number] [address] [place] [address], [place] [address] Jul, [facility] [address] [id number] [address] [place] [id number] Jul, [facility] [address] [id number] [address] [place] [address], [place] [address] Jul, [facility] [address] [id number] [address] [place] [address], [place] [address] Jul, [facility] [address] [id number] [address] [place] [address], [place] [address] Jul, [facility] [address] [id number] [address] [place] [address], [place] [address] Jul, [facility] [address] [id number] [address] [place] [address], [place] [address] Jul, [facility] [address] [id number] [address] [place] [address], [place] [address] Jul, [facility] [address] [id number] [address] [place] [address], [place] [address] Jul, [facility] [address] [id number] [address] [place] [address], [place] [address] Jun, [facility] [address] [id number] [address] [place] [address], [place] [address] Jun, [facility] [address] [id number] [address] [place] [address], [place] [id number] Jun, [facility] [address] [id number] [address] [place] [id number] Jun, [facility] [address] [id number] [address] [place] [id number] Jun, [facility] [address] [id number] [address] [place] [id number] Jun, [facility] [address] [id number] [address] [place] [address], [place] [address] Jun, [facility] [address] [id number] [address] [place] [id number] Jun, [facility] [address] [id number] [facility] [place] [address] Jun, [facility] [address] [id number] [address] [place] [address], [place] [address] Jun, [facility] [address] [id number] [address] [place] [address], [place] [address] 29 May, 2013 [facility] [address] [id number] [address] [place] [address], [place] [address] 29 Sep, 2013 [facility] [address] [id number] [address] [place] [address], [place] [address] 26 May, 2013 [facility] [address] [id number] [address] [place] [address], [place] [address] 26 May, 2013 [facility] [address] [id number] [address] [place] [address], [place] [address] 17 May, 2013 [facility] [address] [id number] [address] [place] [address], [place] [address] 17 May, 2013 [facility] [address] [id number] [address] [place] [address], [place] [address] 15 May, 2013 [facility] [address] [id number] [address] [place] [address], [place] [address] 15 May, 2013 [facility] [address] [id number] [address] [place] [address], [place] [address] 15 May, 2013 [facility] [address] [id number] [address] [place] [address], [place] [address] 15 May, 2013 [facility] [address] [id number] [address] [place] [address], [place] [address] 10 Sep, 2013 [facility] [address] [id number] [address] [place] [address], [place] [address] 10 Sep, 2013 [facility] [address] [id number] [address] [place] [address], [place] [address] 09 Sep, 2013 [facility] [address] [id number] [address] [place] [address], [place] [address] May, [facility] [address] [id number] [facility] [place] [address] May, [facility] [address] [id number] [facility] [place] [address] May, [facility] [address] [id number] [facility] [place] [address] Apr, [facility] [address] [id number] [address] [place] [address], [place] [address] Apr, [facility] [address] [id number] [address] [place] [address], [place] [address] Apr, [facility] [address] [id number] [address] [place] [address], [place] [address] Apr, [facility] [address] [id number] [address] [place] [address], [place] [address] Apr, [facility] [address] [id number] [address] [place] [address], [place] [address] Apr, [facility] [address] [id number] [address] [place] [address], [place] [address] Apr, [facility] [address] [id number] [address] [place] [address], [place] [address] Apr, [facility] [address] [id number] [address] [place] [address], [place] [address] Apr, [facility] [address] [id number] [address] [place] [address], [place] [address] Apr, [facility] [address] [id number] [address] [place] [address], [place] [address] Apr, [facility] [address] [id number] [address] [place] [address], [place] [address] Apr, [facility] [address] [id number] [address] [place] [address], [place] [address] Apr, [facility] [address] [id number] [facility] [place] [address] Apr, [facility] [address] [id number] [address] [place] [address], [place] [address] Apr, [facility] [address] [id number] [address] [place] [address], [place] [address] Mar, [facility] [address] [id number] [address] [place] [address], [place] [address] Mar, [facility] [address] [id number] [address] [place] [address], [place] [address] Mar, [facility] [address] [id number] [address] [place] [address], [place] [address] Mar, [facility] [address] [id number] [address] [place] [address], [place] [address] Mar, [facility] [address] [id number] [address] [place] [address], [place] [address] Mar, [facility] [address] [id number] [address] [place] [address], [place] [address] Mar, [facility] [address] [id number] [address] [place] [address], [place] [address] Mar, [facility] [address] [id number] [address] [place] [address], [place] [address] Mar, [facility] [address] [id number] [address] [place] [address], [place] [address] Mar, [facility] [address] [id number] [address] [place] [address], [place] [address] Mar, [facility] [address] [id number] [address] [place] [address], [place] [address] Mar, [facility] [address] [id number] [address] [place] [address], [place] [address] Mar, [facility] [address] [id number] [address] [place] [address], [place] [address] Mar, [facility] [address] [id number] [facility] [place] [address] Mar, 2013 [facility] [address] [id number] [facility] [place] [address] Mar, 2013 [facility] [address] [id number] [facility] [place] [address] Mar, [facility] [address] [id number] [facility] [place] [address] Mar, [facility] [address] [id number] [facility] [place] [address] Feb, [facility] [address] [id number] [address] [place] [address], [place] [address] Feb, [facility] [address] [id number] [address] [place] [address], [place] [address] Feb, [facility] [address] [id number] [address] [place] [address], [place] [address] Feb, [facility] [address] [id number] [address] [place] [address], [place] [address] Feb, [facility] [address] [id number] [address] [place] [address], [place] [address] Feb, [facility] [address] [id number] [address] [place] [address], [place] [address] Feb, [facility] [address] [id number] [address] [place] [address], [place] [address] Feb, [facility] [address] [id number] [address] [place] [address], [place] [address] Feb, [facility] [address] [id number] [address] [place] [address], [place] [address] Feb, [facility] [address] [id number] [address] [place] [address], [place] [address] Feb, [facility] [address] [id number] [address] [place] [address], [place] [address] Feb, [facility] [address] [id number] [address] [place] [address], [place] [address] Feb, [facility] [address] [id number] [address] [place] [address], [place] [address] Feb, [facility] [address] [id number] [address] [place] [address], [place] [address] January, [facility] [address] [id number] [address] [place] [address], [place] [address] January, [facility] [address] [id number] [address] [place] [address], [place] [address] January, [facility] [address] [id number] [address] [place] [address], [place] [address] January, [facility] [address] [id number] [address] [place] [address], [place] [address] January, [facility] [address] [id number] [address] [place] [address], [place] [address] January, [facility] [address] [id number] [address] [place] [address], [place] [address] January, [facility] [address] [id number] [address] [place] [address], [place] [address] January, [facility] [address] [id number] [address] [place] [address], [place] [address] January, [facility] [address] [id number] [address] [place] [address], [place] [address] January, [facility] [address] [id number] [address] [place] [address], [place] [address] January, [facility] [address] [id number] [address] [place] [address], [place] [address] January, [facility] [address] [id number] [address] [place] [address], [place] [address] January, [facility] [address] [id number] [facility] [place] [address] January, [facility] [address] [id number] [facility] [place] [address] Dec, [facility] [address] [id number] [facility] [place] [address] Dec, [facility] [address] [id number] [address] [place] [address], [place] [address] Dec, [facility] [address] [id number] [address] [place] [address], [place] [address] Dec, [facility] [address] [id number] [address] [place] [address], [place] [address] Dec, [facility] [address] [id number] [address] [place] [address], [place] [address] Dec, [facility] [address] [id number] [address] [place] [address], [place] [address] Dec, [facility] [address] [id number] [address] [place] [address], [place] [address] Dec, [facility] [address] [id number] [address] [place] [address], [place] [address] Dec, [facility] [address] [id number] [address] [place] [address], [place] [address] Dec, [facility] [address] [id number] [address] [place] [address], [place] [address] Nov, [facility] [address] [id number] [address] [place] [address], [place] [address] Nov, [facility] [address] [id number] [address] [place] [address], [place] [address] Nov, [facility] [address] [id number] [address] [place] [address], [place] [address] Nov, [facility] [address] [id number] [address] [place] [address], [place] [address] Nov, [facility] [address] [id number] [facility] [place] [id number] 08 Nov, 2013 [facility] [address] [id number] [address] [place] [address], [place] [address] Nov, [facility] [address] [id number] [address] [place] [address], [place] [address] Nov, [facility] [address] [id number] [address] [place] [address], [place] [address] Nov, [facility] [address] [id number] [address] [place] [address], [place] [address] Nov, [facility] [address] [id number] [address] [place] [address], [place] [address] Oct, [facility] [address] [id number] [address] [place] [address], [place] [address] Oct, [facility] [address] [id number] [address] [place] [address], [place] [address] Oct, [facility] [address] [id number] [address] [place] [address], [place] [address] Oct, [facility] [address] [id number] [address] [place] [address], [place] [address] Oct, [facility] [address] [id number] [address] [place] [address], [place] [address] Oct, [facility] [address] [id number] [address] [place] [address], [place] [address] 14 Oct, 2013 [facility] [address] [id number] [address] [place] [address], [place] [address] 14 Oct, 2013 [facility] [address] [id number] [address] [place] [address], [place] [address] 05 Oct, 2013 [facility] [address] [id number] [address] [place] [address], [place] [address] Oct, [facility] [address] [id number] [address] [place] [address], [place] [address] 04 Oct, 2013 [facility] [address] [id number] [address] [place] [address], [place] [address] Oct, [facility] [address] [id number] [address] [place] [address], [place] [address] Oct, [facility] [address] [id number] [address] [place] [address], [place] [id number] Oct, [facility] [address] [id number] [address] [place] [address], [place] [address] Sep, [facility] [address] [id number] [address] [place] [address], [place] [address] Sep, [facility] [address] [id number] [address] [place] [address], [place] [address] Sep, [facility] [address] [id number] [address] [place] [address], [place] [id number] Sep, [facility] [address] [id number] [address] [place] [address], [place] [address] Sep, [facility] [address] [id number] [address] [place] [address], [place] [address] Sep, [facility] [address] [id number] [address] [place] [address], [place] [address] Sep, [facility] [address] [id number] [address] [place] [address], [place] [id number] Sep, [facility] [address] [id number] [address] [place] [address], [place] [address] Sep, [facility] [address] [id number] [address] [place] [address], [place] [address] Sep, [facility] [address] [id number] [address] [place] [address], [place] [id number] 10 Aug, 2013 [facility] [address] [id number] [address] [place] [address], [place] [address] Aug, [facility] [address] [id number] [address] [place] [address], [place] [address] Jul, [facility] [address] [id number] [address] [place] [address], [place] [address] Jul, [facility] [address] [id number] [address] [place] [address], [place] [address] Jul, [facility] [address] [id number] [address] [place] [address], [place] [address] Jul, [facility] [address] [id number] [address] [place] [address], [place] [address] Jul, [facility] [address] [id number] [address] [place] [id number] Jul, [facility] [address] [id number] [address] [place] [address], [place] [address] Jul, [facility] [address] [id number] [address] [place] [id number] Jul, [facility] [address] [id number] [address] [place] [id number] Jul, [facility] [address] [id number] [address] [place] [id number] Jul, [facility] [address] [id number] [address] [place] [id number] Jul, [facility] [address] [id number] [address] [place] [id number] Jul, [facility] [address] [id number] [address] [place] [id number] Jul, [facility] [address] [id number] [address] [place] [id number] Jul, [facility] [address] [id number] [address] [place] [id number] Jul, [facility] [address] [id number] [address] [place] [address], [place] [id number] 05 Jul, 2012 [facility] [address] [id number] [address] [place] [address], [place] [id number] Jul, 2012 [facility] [address] [id number] [address] [place] [address], [place] [address] Jul, 2012 [facility] [address] [id number] [address] [place] [address], [place] [id number] Jul, 2012 [facility] [address] [id number] [address] [place] [address], [place] [address] Jun, 2012 [facility] [address] [id number] [address] [place] [address], [place] [id number] Jun, 2012 [facility] [address] [id number] [address] [place] [address], [place] [id number] Jun, 2012 [facility] [address] [id number] [address] [place] [address], [place] [address] Jun, 2012 [facility] [address] [id number] [address] [place] [address], [place] [id number] Jun, 2012 [facility] [address] [id number] [address] [place] [address], [place] [id number] Jun, 2012 [facility] [address] [id number] [address] [place] [address], [place] [id number] Jun, 2012 [facility] [address] [id number] [address] [place] [address], [place] [id number] Jun, 2012 [facility] [address] [id number] [address] [place] [id number] Jun, [facility] [address] [id number] [address] [place] [address], [place] [id number] Jun, [facility] [address] [id number] [address] [place] [address], [place] [phone] Jun, [facility] [address] [id number] [address] [place] [address], [place] [id number] May, [facility] [address] [id number] [address] [place] [address], [place] [id number] 25 May, 2012 [facility] [address] [id number] [address] [place] [address], [place] [id number] 19 May, 2012 [facility] [address] [id number] [address] [place] [address], [place] [id number] 17 May, 2012 [facility] [address] [id number] [address] [place] [address], [place] [id number] 11 May, 2012 [facility] [address] [id number] [address] [place] [address], [place] [id number] 10 May, 2012 [facility] [address] [id number] [address] [place] [address], [place] [id number] 09 May, 2012 [facility] [address] [id number] [address] [place] [address], [place] [id number] 05 May, 2012 [facility] [address] [id number] [address] [place] [address], [place] [id number] Apr, [facility] [address] [id number] [address] [place] [address], [place] [id number] Apr, [facility] [address] [id number] [address] [place] [address], [place] [phone] Apr, [facility] [address] [id number] [address] [place] [address], [place] [id number] Apr, [facility] [address] [id number] [address] [place] [address], [place] [id number] Apr, [facility] [address] [id number] [address] [place] [address], [place] [phone] Mar, [facility] [address] [id number] [address] [place] [address], [place] [id number] Mar, [facility] [address] [id number] [address] [place] [address], [place] [id number] Mar, [facility] [address] [id number] [address] [place] [address], [place] [id number] Mar, [facility] [address] [id number] [address] [place] [address], [place] [id number] Mar, [facility] [address] [id number] [address] [place] [address], [place] [id number] Mar, [facility] [address] [id number] [address] [place] [address], [place] [id number] Mar, [facility] [address] [id number] [address] [place] [address], [place] [phone] Mar, [facility] [address] [id number] [address] [place] [address], [place] [id number] Feb, [facility] [address] [id number] [address] [place] [address], [place] [id number] Feb, [facility] [address] [id number] [address] [place] [address], [place] [id number] January, [facility] [address] [id number] [address] [place] [address], [place] [id number] January, [facility] [address] [id number] [address] [place] [address], [place] [id number] Dec, [facility] [address] [id number] [address] [place] [address], [place] [id number] Dec, [facility] [address] [id number] [address] [place] [address], [place] [id number] Nov, [facility] [address] [id number] [address] [place] [address], [place] [id number] Nov, [facility] [address] [id number] [address] [place] [address], [place] [phone] Nov, [facility] [address] [id number] [address] [place] [address], [place] [phone] Nov, [facility] [address] [id number] [address] [place] [address], [place] [id number] Oct, [facility] [address] [id number] [address] [place] [address], [place] [id number] Oct, 2012 [facility] [address] [id number] [address] [place] [address], [place] [id number] Oct, [facility] [address] [id number] [address] [place] [address], [place] [phone] Oct, 2012 [facility] [address] [id number] [address] [place] [address], [place] [phone] 16 Oct, 2012 [facility] [address] [id number] [address] [place] [address], [place] [phone] 14 Oct, 2012 [facility] [address] [id number] [address] [place] [address], [place] [id number] 08 Oct, 2012 [facility] [address] [id number] [address] [place] [address], [place] [phone] 07 Oct, 2012 [facility] [address] [id number] [address] [place] [address], [place] [id number] 03 Oct, 2012 [facility] [address] [id number] [address] [place] [address], [place] [phone] Sep, [facility] [address] [id number] [address] [place] [address], [place] [phone] Sep, [facility] [address] [id number] [address] [place] [address], [place] [phone] Sep, [facility] [address] [id number] [address] [place] [address], [place] [phone] Sep, [facility] [address] [id number] [address] [place] [address], [place] [phone] Sep, [facility] [address] [id number] [address] [place] [address], [place] [id number] Sep, [facility] [address] [id number] [address] [place] [address], [place] [phone] Sep, [facility] [address] [id number] [address] [place] [address], [place] [id number] Sep, [facility] [address] [id number] [address] [place] [address], [place] [address] Aug, [facility] [address] [id number] [address] [place] [address], [place] [address] Aug, [facility] [address] [id number] [address] [place] [address], [place] [address] Aug, [facility] [address] [id number] [address] [place] [address], [place] [phone] Aug, [facility] [address] [id number] [address] [place] [address], [place] [address] Aug, [facility] [address] [id number] [address] [place] [address], [place] [id number] Aug, [facility] [address] [id number] [address] [place] [address], [place] [address] Aug, [facility] [address] [id number] [address] [place] [address], [place] [address] Aug, [facility] [address] [id number] [address] [place] [address], [place] [id number] Jul, [facility] [address] [id number] [address] [place] [address], [place] [id number] Jul, [facility] [address] [id number] [address] [place] [address], [place] [id number] Jul, [facility] [address] [id number] [address] [place] [address], [place] [address] Jul, [facility] [address] [id number] [address] [place] [address], [place] [id number] Jul, [facility] [address] [id number] [address] [place] [address], [place] [id number] Jul, [facility] [address] [id number] [address] [place] [address], [place] [address] Jun, [facility] [address] [id number] [address] [place] [address], [place] [address] Jun, [facility] [address] [id number] [address] [place] [address], [place] [address] Jun, [facility] [address] [id number] [address] [place] [address], [place] [address] Jun, [facility] [address] [id number] [address] [place] [address], [place] [address] Jun, [facility] [address] [id number] [address] [place] [address], [place] [phone] Jun, [facility] [address] [id number] [address] [place] [address], [place] [address] Jun, [facility] [address] [id number] [address] [place] [address], [place] [address] Jun, [facility] [address] [id number] [address] [place] [address], [place] [address] 10 Jun, 2012 [facility] [address] [id number] [address] [place] [address], [place] [address] 26 May, 2012 [facility] [address] [id number] [address] [place] [address], [place] [address] 24 May, 2012 [facility] [address] [id number] [address] [place] [address], [place] [address] 18 May, 2012 [facility] [address] [id number] [address] [place] [address], [place] [id number] 30 Apr, 2012 [facility] [address] [id number] [address] [place] [address], [place] [address] 29 Apr, 2012 [facility] [address] [id number] [address] [place] [address], [place] [address] Apr, [facility] [address] [id number] [address] [place] [address], [place] [address] 14 Apr, 2012 [facility] [address] [id number] [address] [place] [address], [place] [address] Apr, [facility] [address] [id number] [address] [place] [address], [place] [phone] Apr, [facility] [address] [id number] [address] [place] [address], [place] [phone] Mar, [facility] [address] [id number] [address] [place] [address], [place] [id number] Mar, [facility] [address] [id number] [address] [place] [address], [place] [address] Mar, [facility] [address] [id number] [address] [place] [address], [place] [address] Mar, [facility] [address] [id number] [address] [place] [address], [place] [id number] Feb, [facility] [address] [id number] [address] [place] [address], [place] [address] Feb, [facility] [address] [id number] [address] [place] [address], [place] [phone] Feb, [facility] [address] [id number] [address] [place] [address], [place] [phone] Feb, [facility] [address] [id number] [address] [place] [address], [place] [id number] Feb, [facility] [address] [id number] [address] [place] [address], [place] [phone] January, [facility] [address] [id number] [address] [place] [address], [place] [phone] January, [facility] [address] [id number] [address] [place] [address], [place] [address] January, [facility] [address] [id number] [address] [place] [address], [place] [address] January, [facility] [address] [id number] [address] [place] [address], [place] [address] January, [facility] [address] [id number] [address] [place] [address], [place] [id number] January, [facility] [address] [id number] [address] [place] [address], [place] [address] 24 Dec, 2011 [facility] [address] [id number] [address] [place] [address], [place] [address] 24 Dec, 2011 [facility] [address] [id number] [address] [place] [address], [place] [address] 17 Dec, 2011 [facility] [address] [id number] [address] [place] [address], [place] [address] 09 Dec, 2011 [facility] [address] [id number] [address] [place] [address], [place] [id number] 06 Dec, 2011 [facility] [address] [id number] [address] [place] [address], [place] [address] 27 Nov, 2011 [facility] [address] [id number] [address] [place] [address], [place] [address] 14 Nov, 2011 [facility] [address] [id number] [address] [place] [address], [place] [address] 12 Nov, 2011 [facility] [address] [id number] [address] [place] [address], [place] [id number] 07 Nov, 2011 [facility] [address] [id number] [address] [place] [address], [place] [address] 29 Oct, 2011 [facility] [address] [id number] [address] [place] [address], [place] [id number] 28 Oct, 2011 [facility] [address] [id number] [address] [place] [address], [place] [address] 24 Oct, 2011 [facility] [address] [id number] [address] [place] [address], [place] [id number] 13 Oct, 2011 [facility] [address] [id number] [address] [place] [address], [place] [id number] 08 Oct, 2011 [facility] [address] [id number] [address] [place] [address], [place] [address] Sep, [facility] [address] [id number] [address] [place] [address], [place] [address] Sep, [facility] [address] [id number] [address] [place] [address], [place] [phone] Sep, [facility] [address] [id number] [address] [place] [address], [place] [id number] Sep, [facility] [address] [id number] [address] [place] [address], [place] [address] Sep, [facility] [address] [id number] [address] [place] [address], [place] [id number] Sep, [facility] [address] [id number] [address] [place] [address], [place] [address] Aug, [facility] [address] [id number] [address] [place] [address], [place] [address] Aug, [facility] [address] [id number] [address] [place] [id number] Aug, [facility] [address] [id number] [address] [place] [address], [place] [address] Jul, [facility] [address] [id number] [address] [place] [phone] Jul, [facility] [address] [id number] [address] [place] [id number] Jul, [facility] [address] [id number] [address] [place] [phone] Jul, [facility] [address] [id number] [address] [place] [address], [place] [id number] Jun, [facility] [address] [id number] [address] [place] [address], [place] [address] Jun, [facility] [address] [id number] [address] [place] [id number] Jun, [facility] [address] [id number] [address] [place] [id number] 10 Jun, 2011 [facility] [address] [id number] [address] [place] [address], [place] [address] 10 Jun, 2011 [facility] [address] [id number] [address] [place] [address], [place] [address] 10 Jun, 2011 [facility] [address] [id number] [address] [place] [address], [place] [address] 11 Mar, 2011 [facility] [address] [id number] [address] [place] [address], [place] [id number] 18 Dec, 2010 [facility] [address] [id number] [address] [place] [address], [place] [id number] 11 Dec, 2010 [facility] [address] [id number] [address] [place] [address], [place] [address] 18 Nov, 2010 [facility] [address] [id number] [address] [place] [address], [place] [address] 16 Nov, 2010 [facility] [address] [id number] [address] [place] [address], [place] [address] 10 Sep, 2010 [facility] [address] [id number] [address] [place] [address], [place] [phone] 31 Aug, 2010 [facility] [address] [id number] [address] [place] [address], [place] [id number] 29 Aug, 2010 [facility] [address] [id number] [address] [place] [address], [place] [phone] 29 Aug, 2010 [facility] [address] [id number] [address] [place] [address], [place] [phone] 29 Aug, 2010 [facility] [address] [id number] [address] [place] [address], [place] [id number] 27 Aug, 2010 [facility] [address] [id number] [address] [place] [address], [place] [address] 14 Aug, 2010 [facility] [address] [id number] [address] [place] [address], [place] [id number] 08 Aug, 2010 [facility] [address] [id number] [address] [place] [address], [place] [id number] 08 Aug, 2010 [facility] [address] [id number] [address] [place] [address], [place] [phone] Aug, [facility] [address] [id number] [address] [place] [address], [place] [address] Aug, [facility] [address] [id number] [address] [place] [address], [place] [address] Aug, [facility] [address] [id number] [address] [place] [address], [place] [address] Aug, [facility] [address] [id number] [address] [place] [address], [place] [address] Jul, [facility] [address] [id number] [address] [place] [address], [place] [address] Jul, [facility] [address] [id number] [address] [place] [address], [place] [address] Jul, [facility] [address] [id number] [address] [place] [address], [place] [address] Jul, [facility] [address] [id number] [address] [place] [address], [place] [address] Jul, [facility] [address] [id number] [address] [place] [address], [place] [id number] Jul, [facility] [address] [id number] [address] [place] [address], [place] [address] Jun, [facility] [address] [id number] [address] [place] [address], [place] [phone] Jun, [facility] [address] [id number] [address] [place] [address], [place] [id number] Jun, [facility] [address] [id number] [address] [place] [address], [place] [address] Jun, [facility] [address] [id number] [address] [place] [address], [place] [address] 16 Apr, 2010 [facility] [address] [id number] [address] [place] [address], [place] [id number] Mar, [facility] [address] [id number] [address] [place] [address], [place] [address] Feb, [facility] [address] [id number] [address] [place] [address], [place] [id number] January, [facility] [address] [id number] [address] [place] [address], [place] [id number] 15 Dec, 2009 [facility] [address] [id number] [address] [place] [address], [place] [id number] Nov, [facility] [address] [id number] [address] [place] [address], [place] [id number] Aug, [facility] [address] [id number] [address] [place] [address], [place] [phone] Aug, [facility] [address] [id number] [address] [place] [id number] Aug, [facility] [address] [id number] [address] [place] [id number] Jul, [facility] [address] [id number] [address] [place] [id number] Jul, [facility] [address] [id number] [address] [place] [id number] Jul, [facility] [address] [id number] [address] [place] [id number] 30 Jun, 2009 [facility] [address] [id number] [address] [place] [address], [place] [id number] 29 Jun, 2009 [facility] [address] [id number] [address] [place] [id number] Jun, [facility] [address] [id number] [address] [place] [id number] 22 Jun, 2009 [facility] [address] [id number] [address] [place] [id number] Jun, [facility] [place] [address] [facility] [id number] [address] [place] [id number] Jun, [facility] [place] [address] [facility] [id number] [address] [place] [phone] Apr, [facility] [place] [address] [facility] [id number] [address] [place] [id number] Apr, [facility] [place] [address] [facility] [id number] [address] [place] [id number] Feb, [facility] [place] [address] [facility] [id number] [address] [place] [phone] January, [facility] [place] [address] [facility] [id number] [address] [place] [id number] Dec, IMMUNIZATIONS No Known Immunizations SOCIAL HISTORY [...] History inability to urinate 09/16/15 Hospitalization History [facility] health ea rly 2000's Hospitalization History hyperkalemia 10/2017 Hospitalization History fluid in lung
--- OUTSIDE RECORDS SUMMARY | 2020-03-01 17:49 | XMS REPORT ---
Author Author Michele AWSHBURN Organization [facility] Address [address] [place] [address] Care Team Providers Care Logistics Research Engineer Name Role Phone NOEMI WASHBURN Unavailable PROBLEMS Type Condition ICD9-CM Code LSE17-SU Code Onset Dates Condition S tatus SNOMED Code Problem Leukocytosis D72.829 Active 9146609 06 Problem Bipolar I disorder, most recent episode (or curr ent) mixed, moderate F31.62 Active 70888273 Problem Reactive airway disease J45.909 Active 684353074422 Problem Anxiety F41.9 Active 37911803 Problem Insomnia, unspecified type G47.00 Act sharon 459700787 Problem Essential hypertension I10 Active 70542909 Problem Morbid obesity E66.01 Active 97074 6002 Problem Skin cancer C44.90 Active 78750794 7 Problem DM neuro manif type II E11.49 Active 12113676 Problem Mild cognitive impairment G31.84 Acti ve 074378860 Problem Benign prostatic hyperplasia with lower urinary tract symptoms, unspecified morphology N40.1 Active 59581 6007 Problem Chronic pain G89.29 Active 5464511 1 Problem Diabetes E11.9 Active 42004832 Problem Retinal edema H35.81 Active 178526 6 Problem Anemia of chronic illness D63.8 Acti ve 148499408 Problem Falling R29.6 Active 644347330 Problem Pressure ulcer of other site, stage 3 L89.893 Active 220491353 Problem 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 Active 953977463 Problem Eye exam abnormal R93.8 Active 16 3135244 Problem Pure hypercholesterolemia E78.00 Acti ve 671740412 Problem Dysuria R30.0 Active 00338218 Problem Bipolar disorder, in partial remission, most rec ent episode depressed F31.75 Active 24754026 Problem Hypokalemia E87.6 Active 70087227 Problem Other iron deficiency anemia D50.8 A ctive 50818607 Problem Eustachian tube dysfunction, unspecified laterality H69.80 Active 63844224 Problem Primary osteoarthritis of right knee M17.11 Active 965062119708454 Problem Cough R05 Active 35552177 Problem Bipolar disorder F31.9 Active 137 34056 Problem Chronic diastolic (congestive) heart failure I50.3 2 Active 259018625 Problem Psychophysiological insomnia F51.04 A ctive 362941202 Problem Gastroesophageal reflux disease without esophagitis K21.9 Active 706331948 Problem Polyneuropathy associated with underlying disease G63 Active 368979593 Problem Other secondary acute gout, 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 0 Active 491033891 Problem Diabetic polyneuropathy associated with type 2 d iabetes mellitus E11.42 Active 72625091 Problem Chronic lymphocytic leukemia C91.10 A ctive 53770360 Problem Bilateral primary osteoarthritis of knee M17.0 Active 281718539 Problem Type 2 diabetes mellitus with diabetic neuropathy, uns pecified E11.40 Active 39863488 Problem correction (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 Z79.4 Active 373982244 Problem Lymphocytosis D72.820 Active 886466 09 Problem Mood disorder F39 Active 525415 05 Problem Bipolar I disorder, most recent episode depressed, moderat e F31.32 Active 331515360 ALLERGIES No Information ENCOUNTERS Encounter Location Date Diagnosis [facility] [address] [facility] [id number] [address] [place] [phone] Dec, [facility] [address] [facility] [id number] [address] [place] [phone] 17 Dec, 2019 Chronic pain G89.29 [facility] [address] [facility] [id number] [address] [place] [phone] 13 Dec, 2019 [facility] [address] [id number] [address] [place] [phone] Dec, [facility] [address] [facility] [id number] [address] [place] [phone] Dec, Gastroesophageal reflux dise ase without esophagitis K21.9 and Pure hypercholesterolemia E78.00 [facility] [address] [id number] [address] [place] [phone] Dec, Mood disorder F39 [facility] [address] [facility] [id number] [address] [place] [phone] 31 Nov, 2019 Other secondary acute gout, 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 [facility] [address] [facility] [id number] [address] [place] [phone] Nov, Gastroesophageal reflux dise ase without esophagitis K21.9 [facility] [address] [facility] [id number] [address] [place] [address] Nov, Chronic pain G89.29 [facility] [address] [id number] [address] [place] [address] Nov, Bipolar I disorder, most rec ent episode depressed, moderate F31.32 ; Anxiety F41.9 and Mild cognitive impairment G31.84 [place] [address] [facility] [id number] [address] [place] [phone] Nov, [place] [address] [facility] [id number] [address] [place] [phone] Nov, Syncope, unspecified syncope type R55 [place] [address] [facility] [id number] [address] [place] [phone] Nov, Mood disorder F39 [place] [address] [facility] [id number] [address] [place] [address] Oct, Chronic pain G89.29 [facility] [address] [facility] [id number] [address] [place] [address] Oct, [facility] [address] [facility] [id number] [address] [place] [phone] Oct, Mood disorder F39 [facility] [address] [facility] [id number] [address] [place] [address] Oct, [place] [address] [facility] [id number] [address] [place] [phone] Oct, Bipolar disorder, in partial remission, most recent episode depressed F31.75 and Mild cognitive impairment G31.84 [place] [address] [facility] [id number] [address] [place] [phone] Oct, Mood disorder F39 [facility] [address] [id number] [address] [place] [phone] Sep, [facility] [address] [id number] [address] [place] [phone] Sep, Mood disorder F39 [facility] [address] [id number] [address] [place] [phone] Sep, Bipolar disorder, in partial remission, most recent episode depressed F31.75 and Mild cognitive impairment G31.84 [facility] [address] [id number] [address] [place] [phone] Sep, Mood disorder F39 [facility] [address] [id number] [address] [place] [phone] Sep, [facility] [address] [id number] [address] [place] [address] Sep, Mood disorder F39 [facility] [address] [id number] [address] [place] [phone] Sep, [facility] [address] [id number] [address] [place] [phone] Aug, Mood disorder F39 [facility] [address] [id number] [address] [place] [phone] Aug, [facility] [address] [id number] [address] [place] [phone] Aug, [facility] [address] [id number] [address] [place] [address] Aug, [facility] [address] [id number] [address] [place] [phone] Aug, [facility] [address] [id number] [address] [place] [phone] Aug, [facility] [address] [id number] [address] [place] [address] Aug, [facility] [address] [id number] [address] [place] [phone] Aug, [facility] [address] [id number] [address] [place] [phone] Aug, Essential hypertension I10 [facility] [address] [id number] [address] [place] [phone] Aug, Bipolar disorder, in partial remission, most recent episode depressed F31.75 and Mild cognitive impairment G31.84 [facility] [address] [id number] [address] [place] [phone] Aug, Mood disorder F39 [facility] [address] [id number] [address] [place] [address] Aug, [facility] [address] [id number] [address] [place] [phone] Aug, Bipolar disorder, in partial remission, most recent episode depressed F31.75 and Mild cognitive impairment G31.84 [facility] [address] [id number] [address] [place] [address] Jul, Bipolar disorder, in partial remission, most recent episode depressed F31.75 and Mild cognitive impairment G31.84 [facility] [address] [id number] [address] [place] [address] Jul, Psychophysiological insomnia F51.04 [facility] [address] [id number] [address] [place] [address] Jul, [facility] [address] [id number] [address] [place] [phone] Jul, [facility] [address] [id number] [address] [place] [phone] Jul, [facility] [address] [id number] [address] [place] [phone] Jul, [facility] [address] [id number] [address] [place] [address] Jul, [place] [address] [facility] [id number] [address] [place] [phone] Jul, [place] [address] [facility] [id number] [address] [place] [id number] Jul, Bipolar disorder, in partial remission, most recent episode depressed F31.75 and Mild cognitive impairment G31.84 [place] [address] [place] [id number] [address] [place] [address] Jul, Chronic pain G89.29 ; Diabet es E11.9 ; Essential hypertension I10 ; Ill feeling R68.89 ; Local infection of the skin and subcutaneous tissue, unspecified L08.9 and Other injury of unspecified body region, initial encounter T14.8XXA [place] [address] [place] [id number] [address] [place] [phone] Jun, Bipolar disorder, in partial remission, most recent episode depressed F31.75 and Mild cognitive impairment G31.84 [place] [address] [facility] [id number] [address] [place] [address] Jun, [place] [address] [facility] [id number] [address] [place] [phone] Jun, Bipolar disorder, in partial remission, most recent episode depressed F31.75 and Mild cognitive impairment G31.84 [place] [address] [place] [id number] [address] [place] [address] Jun, Psychophysiological insomnia F51.04 [place] [address] [facility] [id number] [address] [place] [address] Jun, Psychophysiological insomnia F51.04 ; Chronic pain G89.29 ; Bipolar I disorder, most recent episode (or current) mixed, moderate F31.62 ; 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 ; Polyneuropathy associated with underlying disease G63 ; Type 2 diabetes mellitus with diabetic neuropathy, unspecified E11.40 ; medical 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 (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 Z79.4 and Hyperglycemia R73.[address] [id number] [address] [place] [phone] Jun, Bipolar disorder, in partial remission, most recent episode depressed F31.75 and Mild cognitive impairment G31.84 [facility] [address] [id number] [address] [place] [phone] Jun, [facility] [address] [facility] [id number] [address] [place] [phone] Jun, Bipolar disorder F31.9 [facility] [address] [id number] [address] [place] [address] May, Bipolar disorder, in partial remission, most recent episode depressed F31.75 and Mild cognitive impairment G31.84 [facility] [address] [facility] [id number] [address] [place] [phone] May, [facility] [address] [id number] [address] [place] [address] Apr, Chronic pain G89.29 and Bipo lar disorder F31.9 [facility] [address] [id number] [address] [place] [phone] Mar, Bipolar disorder F31.9 and C hronic pain G89.29 [facility] [address] [id number] [address] [place] [phone] Feb, Bipolar disorder F31.9 [facility] [address] [id number] [address] [place] [phone] Feb, Cellulitis of right upper ex tremity L03.113 and Skin abrasion T14.8XXA [facility] [address] [id number] [address] [place] [phone] Feb, Bipolar disorder, in partial remission, most recent episode depressed F31.75 and Mild cognitive impairment G31.84 [facility] [address] [id number] [address] [place] [phone] Feb, Chronic pain G89.29 [facility] [address] [id number] [address] [place] [address] Feb, Bipolar disorder, in partial remission, most recent episode depressed F31.75 and Mild cognitive impairment G31.84 [facility] [address] [id number] [address] [place] [phone] January, Bipolar disorder, in partial remission, most recent episode depressed F31.75 and Mild cognitive impairment G31.84 [facility] [address] [id number] [address] [place] [address] January, Chronic pain G89.29 and Bipo lar disorder F31.9 [facility] [address] [id number] [address] [place] [phone] January, Bipolar disorder, in partial remission, most recent episode depressed F31.75 and Mild cognitive impairment G31.84 [facility] [address] [id number] [address] [place] [address] Dec, [facility] [address] [id number] [address] [place] [address] Dec, Chronic pain G89.29 and Bipo lar disorder F31.9 [facility] [address] [id number] [address] [place] [phone] Dec, Edema of both lower extremit ies R60.0 [facility] [address] [id number] [address] [place] [phone] Dec, Bipolar disorder F31.9 [facility] [address] [id number] [address] [place] [phone] Dec, Bipolar disorder, in partial remission, most recent episode depressed F31.75 and Mild cognitive impairment G31.84 [facility] [address] [id number] [address] [place] [phone] Nov, [facility] [address] [id number] [address] [place] [address] Nov, Chronic pain G89.29 [facility] [address] [id number] [address] [place] [phone] Nov, Bipolar disorder, in partial remission, most recent episode depressed F31.75 and Mild cognitive impairment G31.84 [place] [address] [place] [id number] [address] [place] [address] Nov, Bipolar disorder F31.9 [place] [address] [place] [id number] [address] [place] [phone] 04 Nov, 2018 [facility] Z00.00 ; Polyneuropathy associated [...] unspecified morphology N40.1 and Essential hypertension I10 [place] [id number] [place] [address] Oct, Chronic pain G89.29 [place] [address] [place] [id number] [address] [place] [address] 18 Oct, 2018 Diabetes E11.9 [place] [address] [place] [id number] [address] [place] [phone] Oct, Bipolar I disorder, most rec ent episode (or current) mixed, moderate F31.62 and Mild cognitive impairment G31.84 [place] [address] [place] [id number] [address] [place] [address] Oct, Bipolar I disorder, most rec ent episode (or current) mixed, moderate F31.62 and Mild cognitive impairment G31.84 [place] [address] [place] [id number] [address] [place] [address] Sep, Bipolar I disorder, most rec ent episode (or current) mixed, moderate F31.62 and Mild cognitive impairment G31.84 [place] [address] [place] [id number] [address] [place] [phone] Sep, [facility] [address] [place] [id number] [address] [place] [address] Sep, Diabetes E11.9 ; Hypoxia R09 .02 ; Hyperglycemia R73.9 ; Therapeutic drug monitoring Z51.81 ; BMI 50.0-59.9, adult Z68.43 and Skin cancer C44.90 [place] [address] [place] [id number] [place] [address] Sep, Chronic pain G89.29 [place] [address] [place] [id number] [place] [address] Sep, Bipolar I disorder, most rec ent episode (or current) mixed, moderate F31.62 [place] [address] [place] [id number] [place] [address] Sep, [place] [address] [place] [id number] [place] [address] Sep, [place] [address] [place] [id number] [address] [place] [address] Aug, Chronic pain G89.29 [place] [address] [place] [id number] [address] [place] [address] Aug, Bipolar I disorder, most rec ent episode (or current) mixed, moderate F31.62 [place] [address] [place] [id number] [address] [place] [address] Aug, Bipolar I disorder, most rec ent episode (or current) mixed, moderate F31.62 and Mild cognitive impairment G31.84 [place] [address] [place] [id number] [address] [place] [address] Jul, [place] [address] [place] [id number] [address] [place] [address] Jul, Chronic pain G89.29 [facility] [address] [place] [id number] [address] [place] [address] Jul, Bipolar I disorder, most rec ent episode (or current) mixed, moderate F31.62 and Mild cognitive impairment G31.84 [place] [address] [facility] [id number] [address] [place] [address] Jul, Bipolar I disorder, most rec ent episode (or current) mixed, moderate F31.62 and MCI (mild cognitive impairment) G31.84 [place] [address] [facility] [id number] [address] [place] [address] Jul, [facility] [address] [facility] [id number] [address] [place] [address] Jul, [place] [address] [place] [id number] [place] [address] Jul, Bipolar I disorder, most rec ent episode (or current) mixed, moderate F31.62 [place] [address] [place] [id number] [address] [place] [address] Jul, Chronic pain G89.29 [place] [address] [id number] [address] [place] [address] Jun, Bipolar I disorder, most rec ent episode (or current) mixed, moderate F31.62 [place] [address] [place] [id number] [address] [place] [address] Jun, Pre-procedure lab exam Z01.8 12 [place] [address] [place] [id number] [address] [place] [address] Jun, [facility] [address] [id number] [place] [id number] Jun, [place] [address] [facility] [id number] [address] [place] [phone] Jun, [place] [address] [place] [id number] [address] [place] [address] Jun, Forgetfulness R68.89 ; Pre-s yncope R55 ; Localized edema R60.0 ; Other iron deficiency anemia D50.8 and BMI 50.0-59.9, adult Z68.43 [facility] [address] [facility] [id number] [address] [place] [address] Jun, Chronic pain G89.29 [facility] [address] [facility] [id number] [address] [place] [address] Jun, Chronic pain G89.29 [facility] [address] [facility] [id number] [address] [place] [address] Jun, Bipolar I disorder, most rec ent episode (or current) mixed, moderate F31.62 [facility] [address] [facility] [id number] [address] [place] [address] May, Chronic pain G89.29 [facility] [address] [facility] [id number] [address] [place] [address] Apr, [place] [address] [facility] [id number] [address] [place] [address] Apr, Chronic pain G89.29 [facility] [address] [facility] [id number] [address] [place] [address] Apr, Primary osteoarthritis of ri ght knee M17.11 [facility] [address] [facility] [id number] [address] [place] [address] Mar, [facility] [address] [facility] [id number] [address] [place] [phone] Mar, BMI 50.0-59.9, adult Z68.43 and Bipolar disorder, in partial remission, most recent episode depressed F31.75 [facility] [address] [facility] [id number] [address] [place] [address] Mar, Diabetes E11.9 ; Pure hyperc holesterolemia E78.00 ; Essential hypertension I10 ; Nausea with vomiting, unspecified R11.2 and Headache, unspecified headache type R51 [facility] [address] [facility] [id number] [address] [place] [phone] Mar, Bipolar I disorder, most rec ent episode (or current) mixed, moderate F31.62 [facility] [address] [id number] [address] [place] [phone] 16 Mar, 2018 Bipolar I disorder, most rec ent episode (or current) mixed, moderate F31.62 [facility] [address] [facility] [id number] [address] [place] [address] Mar, Chronic pain G89.29 [facility] [address] [facility] [id number] [address] [place] [id number] Mar, Bipolar I disorder, most rec ent episode (or current) mixed, moderate F31.62 [facility] [address] [facility] [id number] [address] [place] [id number] Feb, Bipolar I disorder, most rec ent episode (or current) mixed, moderate F31.62 [facility] [address] [facility] [id number] [address] [place] [id number] Feb, Chronic pain G89.29 [facility] [address] [facility] [id number] [address] [place] [address] [address] Feb, Decubitus ulcer of right josselin t, stage 3 L89.893 and BMI 50.0-59.9, adult Z68.43 [facility] [address] [facility] [id number] [address] [place] [phone] Feb, Bipolar I disorder, most rec ent episode (or current) mixed, moderate F31.62 [facility] [address] [id number] [address] [place] [phone] Feb, [facility] [address] [facility] [id number] [address] [place] [phone] January, [facility] [address] [id number] [address] [place] [address] January, Chronic pain G89.29 [facility] [address] [id number] [address] [place] [phone] January, Bipolar I disorder, most rec ent episode (or current) mixed, moderate F31.62 [place] [address] [place] [id number] [address] [place] [address] January, Bipolar I disorder, most rec ent episode (or current) mixed, moderate F31.62 [place] [address] [place] [id number] [address] [place] [address] Dec, Bipolar I disorder, most rec ent episode (or current) mixed, moderate F31.62 and BMI 50.0-59.9, adult Z68.43 [place] [address] [address] Dec, Bipolar I disorder, most rec ent episode (or current) mixed, moderate F31.62 [place] [address] [address] Dec, Chronic pain G89.29 [place] [address] [address] Dec, DM neuro manif type II E11.4 9 ; Right flank pain R10.9 ; correction 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 Z79.891 ; Encounter for medication monitoring Z51.81 and BMI 50.0-59.9, adult Z68.43 [place] [address] [address] Dec, Bipolar I disorder, most rec ent episode (or current) mixed, moderate F31.62 [place] [address] [place] [id number] [address] [place] [address] Nov, Bipolar I disorder, most rec ent episode (or current) mixed, moderate F31.62 [place] [address] [place] [id number] [address] [place] [address] Nov, Chronic pain G89.29 [place] [address] [place] [id number] [place] [address] Nov, Bipolar I disorder, most rec ent episode (or current) mixed, moderate F31.62 [place] [address] [place] [id number] [place] [address] Nov, Hypokalemia E87.6 [place] [address] [place] [id number] [place] [address] Nov, Bipolar I disorder, most rec ent episode (or current) mixed, moderate F31.62 [place] [address] [address] Oct, Chronic pain G89.29 [place] [address] [address] Oct, BMI 50.0-59.9, adult Z68.43 and Bipolar I disorder, most recent episode (or current) mixed, moderate F31.62 [place] [address] [address] Oct, Bipolar I disorder, most rec ent episode (or current) mixed, moderate F31.62 [place] [address] [address] Oct, [place] [address] [address] Oct, Hypokalemia E87.6 [place] [address] [place] [id number] [place] [address] Oct, DM neuro manif type II E11.4 9 [place] [address] [address] Oct, Bipolar I disorder, most rec ent episode (or current) mixed, moderate F31.62 [place] [address] [address] Oct, Bipolar I disorder, most rec ent episode (or current) mixed, moderate F31.62 [place] [address] [place] [id number] [place] [address] 14 Oct, 2017 Hyperkalemia E87.5 ; Falling R29.6 ; BMI 50.0-59.9, adult Z68.43 and Acute left ankle pain M25.572 [place] [id number] [place] [address] 08 Oct, 2017 DM neuro manif type II E11.4 9 [place] [address] [place] [id number] [address] [place] [phone] Oct, [place] [address] [place] [id number] [place] [address] Sep, Chronic pain G89.29 [place] [address] [place] [id number] [address] [place] [address] Sep, [place] [address] [place] [id number] [place] [address] Sep, Bilateral primary osteoarthr itis of knee M17.0 [place] [address] [address] Sep, Generalized edema R60.1 [place] [address] [address] 16 Sep, 2017 Bipolar I disorder, most rec ent episode (or current) mixed, moderate F31.62 [place] [address] [address] 15 Sep, 2017 Hypoxia R09.02 ; Other hyper volemia E87.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 ; Anemia of chronic illness D63.8 and BMI 50.0- 59.9, adult Z68.43 [place] [address] [address] Sep, [place] [address] [place] [id number] [place] [address] Sep, Bipolar I disorder, most rec ent episode (or current) mixed, moderate F31.62 [place] [address] [place] [address] Aug, Chronic pain G89.29 [facility] [address] [id number] [address] [place] [address] Aug, Generalized edema R60.1 [facility] [address] [id number] [address] [place] [address] Aug, [facility] [address] [id number] [address] [place] [address] Aug, [facility] [address] [id number] [address] [place] [address] 14 Aug, 2017 Bipolar I disorder, most rec ent episode (or current) mixed, moderate F31.62 [place] [address] [place] [id number] [address] [place] [address] 07 Aug, 2017 Bipolar I disorder, most rec ent episode (or current) mixed, moderate F31.62 [place] [address] [place] [id number] [address] [place] [address] Aug, Chronic pain G89.29 [facility] [address] [id number] [address] [place] [address] 30 Jul, 2017 Bipolar I disorder, most rec ent episode (or current) mixed, moderate F31.62 [facility] [address] [id number] [address] [place] [address] Jul, Bipolar I disorder, most rec ent episode (or current) mixed, moderate F31.62 and BMI 60.0-69.9, adult Z68.44 [facility] [address] [id number] [address] [place] [address] 16 Jul, 2017 Bipolar I disorder, most rec ent episode (or current) mixed, moderate F31.62 [facility] [address] [id number] [address] [place] [address] 06 Jul, 2017 Chronic pain G89.29 [facility] [address] [place] [id number] [address] [place] [address] Jul, Bipolar I disorder, most rec ent episode (or current) mixed, moderate F31.62 [facility] [address] [id number] [address] [place] [address] Jun, Polyneuropathy associated wi th underlying disease G63 and Diabetes E11.9 [facility] [address] [id number] [address] [place] [phone] 16 Jun, 2017 Bipolar I disorder, most rec ent episode (or current) mixed, moderate F31.62 [facility] [address] [id number] [address] [place] [address] Jun, Chronic pain G89.29 [facility] [address] [id number] [address] [place] [address] May, Bipolar I disorder, most rec ent episode (or current) mixed, moderate F31.62 [facility] [address] [place] [id number] [address] [place] [address] May, Bipolar I disorder, most rec ent episode (or current) mixed, moderate F31.62 [facility] [address] [id number] [address] [place] [id number] 20 May, 2017 Diabetic polyneuropathy asso ciated with type 2 diabetes mellitus E11.42 [facility] [address] [id number] [address] [place] [id number] 18 May, 2017 Bipolar I disorder, most rec ent episode (or current) mixed, moderate F31.62 [facility] [address] [id number] [address] [place] [phone] 13 May, 2017 Bipolar I disorder, most rec ent episode (or current) mixed, moderate F31.62 [facility] [address] [id number] [address] [place] [id number] May, Chronic pain G89.29 [facility] [address] [id number] [address] [place] [address] Apr, Bipolar I disorder, most rec ent episode (or current) mixed, moderate F31.62 [facility] [address] [id number] [address] [place] [address] Apr, [facility] [address] [id number] [address] [place] [address] Apr, Chronic pain G89.29 and DM n euro manif type II E11.49 [facility] [address] [id number] [address] [place] [phone] Apr, [facility] [address] [id number] [address] [place] [address] Apr, Bipolar I disorder, most rec ent episode (or current) mixed, moderate F31.62 [facility] [address] [id number] [address] [place] [phone] Apr, Chronic pain G89.29 [facility] [address] [id number] [address] [place] [address] Apr, Iliotibial band syndrome, le ft M76.32 [facility] [address] [id number] [address] [place] [phone] Apr, Bipolar I disorder, most rec ent episode (or current) mixed, moderate F31.62 [facility] [address] [id number] [address] [place] [phone] Mar, Bipolar I disorder, most rec ent episode (or current) mixed, moderate F31.62 [facility] [address] [id number] [address] [place] [phone] Mar, Bipolar I disorder, most rec ent episode (or current) mixed, moderate F31.62 [facility] [address] [id number] [address] [place] [phone] Mar, [facility] [address] [id number] [address] [place] [address] Mar, Bipolar I disorder, most rec ent episode (or current) mixed, moderate F31.62 [facility] [address] [id number] [address] [place] [id number] Mar, Chronic pain G89.29 [facility] [address] [id number] [address] [place] [address] Mar, Bipolar I disorder, most rec ent episode (or current) mixed, moderate F31.62 [facility] [address] [id number] [address] [place] [id number] Mar, Bipolar I disorder, most rec ent episode (or current) mixed, moderate F31.62 [facility] [address] [id number] [address] [place] [phone] Mar, Acute pain of left knee M25. 562 ; Left hip pain M25.552 ; Generalized edema R60.1 and Tongue swelling R22.0 [facility] [address] [id number] [address] [place] [phone] Mar, [facility] [address] [id number] [address] [place] [phone] Feb, Chronic pain G89.29 [facility] [address] [id number] [address] [place] [address] Feb, Diabetes E11.9 [facility] [address] [id number] [address] [place] [phone] January, Chronic pain G89.29 [facility] [address] [id number] [address] [place] [address] January, [facility] [address] [id number] [address] [place] [phone] January, Bipolar I disorder, most rec ent episode (or current) mixed, moderate F31.62 [facility] [address] [id number] [address] [place] [address] Dec, Bipolar I disorder, most rec ent episode (or current) mixed, moderate F31.62 [facility] [address] [id number] [address] [place] [phone] 24 Apr, 2017 Chronic pain G89.29 [facility] [address] [id number] [address] [place] [phone] Dec, Bipolar I disorder, most rec ent episode (or current) mixed, moderate F31.62 [facility] [address] [id number] [address] [place] [address] Dec, Diabetes E11.9 ; Essential h ypertension I10 ; Chronic pain G89.29 and Morbid obesity E66.01 [facility] [address] [id number] [address] [place] [phone] Dec, [facility] [address] [id number] [address] [place] [phone] Dec, Bipolar I disorder, most rec ent episode (or current) mixed, moderate F31.62 [facility] [address] [id number] [address] [place] [phone] Dec, Bipolar I disorder, most rec ent episode (or current) mixed, moderate F31.62 [facility] [address] [id number] [address] [place] [phone] Nov, Chronic pain G89.29 [facility] [address] [id number] [address] [place] [address] Nov, Bipolar I disorder, most rec ent episode (or current) mixed, moderate F31.62 [facility] [address] [id number] [address] [place] [phone] Nov, [facility] [address] [id number] [address] [place] [phone] Nov, Bipolar I disorder, most rec ent episode (or current) mixed, moderate F31.62 [facility] [address] [id number] [address] [place] [phone] Nov, Bipolar I disorder, most rec ent episode (or current) mixed, moderate F31.62 [facility] [address] [id number] [address] [place] [phone] Nov, [facility] [address] [id number] [address] [place] [address] Nov, [facility] [address] [id number] [address] [place] [phone] Nov, [facility] [address] [id number] [address] [place] [phone] Oct, Chronic pain G89.29 [facility] [address] [id number] [address] [place] [phone] Oct, Bipolar I disorder, most rec ent episode (or current) mixed, moderate F31.62 [facility] [address] [id number] [address] [place] [phone] Oct, [facility] [address] [id number] [address] [place] [phone] Oct, Chronic pain G89.29 ; Diabet es E11.9 ; Anxiety F41.9 and 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 [facility] [address] [id number] [address] [place] [address] Oct, [facility] [address] [id number] [address] [place] [address] Oct, Diabetes E11.9 [facility] [address] [id number] [address] [place] [phone] Oct, Bipolar I disorder, most rec ent episode (or current) mixed, moderate F31.62 [facility] [address] [id number] [address] [place] [phone] Sep, Chronic pain G89.29 [facility] [address] [id number] [address] [place] [address] Sep, Chronic pain G89.29 [facility] [address] [id number] [address] [place] [phone] Aug, Chronic pain G89.29 [facility] [address] [id number] [address] [place] [phone] Jul, [facility] [address] [place] [id number] [address] [place] [phone] Jul, Diabetes E11.9 [facility] [address] [place] [id number] [address] [place] [phone] Jul, Chronic pain G89.29 [place] [address] [place] [id number] [address] [place] [phone] Jul, Bipolar I disorder, most rec ent episode (or current) mixed, moderate F31.62 [place] [address] [place] [id number] [place] [address] Jun, Bipolar I disorder, most rec ent episode (or current) mixed, moderate F31.62 [place] [address] [place] [id number] [address] [place] [phone] Jun, [place] [address] [place] [id number] [address] [place] [phone] Jun, Bipolar I disorder, most rec ent episode (or current) mixed, moderate F31.62 [place] [address] [place] [id number] [address] [place] [address] May, Insomnia, unspecified type G 47.00 [place] [address] [place] [id number] [address] [place] [phone] May, Bipolar I disorder, most rec ent episode (or current) mixed, moderate F31.62 [place] [address] [place] [id number] [address] [place] [address] 14 May, 2016 [place] [address] [place] [id number] [place] [phone] 08 May, 2016 Bipolar I disorder, most rec ent episode (or current) mixed, moderate F31.62 [place] [address] [place] [id number] [address] [place] [address] May, Diabetes E11.9 and Essential hypertension I10 [facility] [address] [id number] [address] [place] [address] Apr, Chronic pain G89.29 [facility] [address] [id number] [address] [place] [phone] Apr, Bipolar I disorder, most rec ent episode (or current) mixed, moderate F31.62 [place] [address] [facility] [id number] [address] [place] [address] Apr, [facility] [address] [id number] [address] [place] [phone] Apr, [place] [address] [facility] [id number] [address] [place] [phone] Mar, Chronic pain G89.29 ; Headac he, unspecified headache type R51 ; Neuropathy G62.9 ; Pain of right hip joint M25.551 and Essential hypertension I10 [place] [address] [facility] [id number] [address] [place] [address] Mar, Chronic pain G89.29 [place] [address] [facility] [id number] [address] [place] [phone] Mar, Bipolar I disorder, most rec ent episode (or current) mixed, moderate F31.62 [place] [address] [facility] [id number] [address] [place] [address] Feb, Bipolar I disorder, most rec ent episode (or current) mixed, moderate F31.62 and Insomnia, unspecified type G47.00 [place] [address] [id number] [address] [place] [phone] Feb, Chronic pain G89.29 [place] [address] [facility] [id number] [address] [place] [phone] Feb, Bipolar I disorder, most rec ent episode (or current) mixed, moderate F31.62 [place] [address] [id number] [address] [place] [phone] January, Bipolar I disorder, most rec ent episode (or current) mixed, moderate F31.62 [facility] [address] [id number] [address] [place] [phone] January, Chronic pain G89.29 [facility] [address] [id number] [address] [place] [phone] January, Chronic pain G89.29 and Esse ntial hypertension I10 [facility] [address] [id number] [address] [place] [id number] January, Bipolar I disorder, most rec ent episode (or current) mixed, moderate F31.62 [facility] [address] [id number] [address] [place] [phone] Dec, [facility] [address] [facility] [id number] [address] [place] [id number] Dec, [facility] [address] [facility] [id number] [address] [place] [id number] Dec, [facility] [address] [facility] [id number] [address] [place] [phone] Dec, [facility] [address] [facility] [id number] [address] [place] [id number] Nov, Reactive airway disease J45. 909 [facility] [address] [facility] [id number] [address] [place] [id number] Nov, [facility] [address] [id number] [address] [place] [phone] Nov, [facility] [address] [facility] [id number] [address] [place] [phone] Nov, [facility] [address] [facility] [id number] [address] [place] [id number] Nov, [facility] [address] [facility] [id number] [address] [place] [phone] Nov, Onychomycosis B35.1 ; Hammer toe M20.40 ; Cisco or callus L84 and DM neuro manif type II E11.49 [facility] [address] [place] [id number] [address] [place] [id number] Nov, Chronic pain G89.29 ; Leukoc ytosis D72.829 and Diabetes E11.9 [facility] [address] [facility] [id number] [address] [place] [phone] Nov, [facility] [address] [id number] [address] [place] [address] Oct, Bronchitis J40 [facility] [address] [id number] [address] [place] [address] Oct, [place] [address] [address] Oct, [place] [address] [address] Oct, Mastoiditis, unspecified lat erality H70.90 and Type 2 diabetes mellitus with complication E11.8 [place] [address] [place] [id number] [address] [place] [address] Sep, [place] [address] [address] Sep, Dysuria R30.0 ; Cough R05 ; Benign prostatic hyperplasia with lower urinary tract symptoms, unspecified morphology N40.1 ; Hypokalemia E87.6 and Eustachian tube dysfunction, unspecified laterality H69.80 [place] [address] [place] [address] Sep, Moderate mixed bipolar I dis order F31.62 [place] [address] [address] Sep, Hypokalemia E87.6 [place] [address] [place] [id number] [address] [place] [address] Sep, [place] [address] [address] Sep, Upper respiratory tract infe ction, unspecified type J06.9 [facility] [address] [id number] [address] [place] [address] Aug, [facility] [address] [id number] [address] [place] [address] Aug, Dysuria R30.0 [facility] [address] [id number] [address] [place] [address] Aug, [facility] [address] [id number] [address] [place] [address] Jul, [facility] [address] [id number] [address] [place] [address] Jul, [facility] [address] [id number] [address] [place] [address] Jul, [facility] [address] [id number] [address] [place] [address] Jul, [facility] [address] [id number] [address] [place] [address] Jun, [facility] [address] [id number] [address] [place] [address] Jun, [facility] [address] [id number] [address] [place] [address] Jun, [facility] [address] [id number] [address] [place] [address] May, [facility] [address] [id number] [address] [place] [address] May, Bipolar I disorder, most rec ent episode (or current) mixed, moderate 296.62 [facility] [address] [id number] [address] [place] [address] 16 May, 2015 [facility] [address] [id number] [address] [place] [address] May, Bipolar I disorder, most rec ent episode (or current) mixed, moderate 296.62 and Major depressive disorder, recurrent episode, severe, specified as with psychotic behavior 296.34 [facility] [address] [facility] [id number] [address] [place] [address] May, Bipolar I disorder, most rec ent episode (or current) mixed, moderate 296.62 [facility] [address] [facility] [id number] [address] [place] [address] May, [facility] [address] [facility] [id number] [address] [place] [address] Apr, [facility] [address] [facility] [id number] [address] [place] [address] Apr, [facility] [address] [id number] [address] [place] [address] Apr, Unspecified disorder of kidn ey and ureter 593.9 and Diabetes mellitus type 2, uncontrolled 250.02 [facility] [address] [id number] [address] [place] [address] Apr, [facility] [address] [facility] [id number] [address] [place] [address] Apr, [facility] [address] [id number] [address] [place] [address] Apr, [facility] [address] [facility] [id number] [address] [place] [address] Apr, [facility] [address] [id number] [address] [place] [address] Apr, Diabetes mellitus type II, u ncontrolled 250.02 [facility] [address] [facility] [id number] [address] [place] [address] Apr, [facility] [address] [facility] [id number] [address] [place] [address] Mar, [facility] [address] [id number] [address] [place] [address] Mar, [facility] [address] [facility] [id number] [address] [place] [address] Mar, [facility] [address] [id number] [address] [place] [address] Mar, Major depressive disorder, r ecurrent episode, severe, specified as with psychotic behavior 296.34 and Bipolar I disorder, most recent episode (or current) mixed, moderate 296.62 [facility] [address] [place] [address] Mar, Diabetes 250.00 ; Anuria 788 .5 ; Nausea and vomiting 787.01 and Diarrhea 787.91 [facility] [address] [id number] [address] [place] [address] Mar, Diabetes 250.00 [facility] [address] [place] [id number] [address] [place] [address] Mar, [facility] [address] [address] [id number] [address] [place] [address] Mar, Diabetes 250.00 [facility] [address] [id number] [address] [place] [address] Mar, [facility] [address] [id number] [address] [place] [address] Mar, [facility] [address] [id number] [address] [place] [address] Mar, [facility] [address] [id number] [address] [place] [address] Mar, [facility] [address] [id number] [address] [place] [address] Mar, Bipolar I disorder, most rec ent episode (or current) mixed, moderate 296.62 and Major depressive disorder, recurrent episode, severe, specified as with psychotic behavior 296.34 [facility] [address] [id number] [address] [place] [address] Mar, Magnesium deficiency 275.2 ; Hypokalemia 276.8 ; Nausea & vomiting 787.01 and Diabetes mellitus type 2, uncontrolled 250.02 [place] [address] [address] Feb, [facility] [address] [address] Feb, Bipolar I disorder, most rec ent episode (or current) mixed, moderate 296.62 [place] [address] [address] Feb, Nausea and vomiting 787.01 ; Left elbow pain 719.42 ; Anuria 788.5 and Diabetes 250.00 [place] [address] [address] Feb, [place] [address] [address] Feb, Hypopotassemia 276.8 and Hyp okalemia 276.[address] [address] Feb, Hypopotassemia 276.8 and Hyp okalemia 276.8 [place] [address] [address] Feb, Seborrheic keratoses 702.19 [place] [address] [address] Feb, Hypopotassemia 276.8 and Low magnesium levels 275.2 [place] [address] [address] January, [place] [address] [address] January, [place] [address] [address] January, [place] [address] [address] January, Scalp lesion 709.9 [facility] [address] [id number] [address] [place] [address] January, [facility] [address] [id number] [address] [place] [address] Dec, Tear of medial cartilage or meniscus of knee, current 836.0 and 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 [facility] [address] [id number] [address] [place] [address] Dec, [facility] [address] [id number] [address] [place] [address] Dec, [facility] [address] [id number] [address] [place] [address] Dec, Squamous cell carcinoma, 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 [facility] [address] [id number] [address] [place] [address] Dec, [facility] [address] [id number] [address] [place] [address] Dec, [facility] [address] [id number] [address] [place] [address] Nov, [facility] [address] [id number] [address] [place] [address] Nov, [facility] [address] [id number] [address] [place] [address] Nov, [facility] [address] [id number] [address] [place] [address] Nov, [facility] [address] [id number] [address] [place] [address] Nov, [facility] [address] [id number] [address] [place] [address] Nov, [facility] [address] [id number] [address] [place] [address] Nov, [facility] [address] [id number] [address] [place] [address], [place] [address] Nov, 2014 [facility] [address] [id number] [address] [place] [address], [place] [address] Nov, 2014 [facility] [address] [id number] [address] [place] [address], [place] [address] Nov, 2014 [facility] [address] [id number] [address] [place] [address], [place] [address] Nov, 2014 [facility] [address] [id number] [address] [place] [address], [place] [address] Nov, 2014 [facility] [address] [id number] [address] [place] [address], [place] [address] Oct, 2014 [facility] [address] [id number] [address] [place] [address], [place] [address] Oct, 2014 [facility] [address] [id number] [address] [place] [address], [place] [address] Oct, 2014 [facility] [address] [id number] [address] [place] [address], [place] [address] Oct, 2014 [facility] [address] [id number] [address] [place] [address], [place] [address] Oct, 2014 [facility] [address] [id number] [address] [place] [address] Oct, 2014 [facility] [address] [id number] [address] [place] [address] Oct, 2014 [facility] [address] [id number] [address] [place] [address], [place] [address] Oct, 2014 [facility] [address] [id number] [address] [place] [address] Oct, 2014 [facility] [address] [id number] [address] [place] [address] Sep, [facility] [address] [id number] [address] [place] [address] Sep, [facility] [address] [id number] [address] [place] [address], [place] [address] Sep, [facility] [address] [id number] [address] [place] [address], [place] [address] Sep, [facility] [address] [id number] [address] [place] [address], [place] [address] Sep, [facility] [address] [id number] [address] [place] [address], [place] [address] Sep, [facility] [address] [id number] [address] [place] [address], [place] [address] Sep, [facility] [address] [id number] [address] [place] [address], [place] [address] Sep, [facility] [address] [id number] [address] [place] [address], [place] [address] Sep, [facility] [address] [id number] [address] [place] [address], [place] [address] Sep, [facility] [address] [id number] [address] [place] [address], [place] [address] Sep, [facility] [address] [id number] [address] [place] [address], [place] [address] Sep, [facility] [address] [id number] [address] [place] [address], [place] [address] Sep, [facility] [address] [id number] [address] [place] [address], [place] [address] Sep, [facility] [address] [id number] [address] [place] [address], [place] [address] Sep, [facility] [address] [id number] [address] [place] [address], [place] [address] Sep, [facility] [address] [id number] [address] [place] [address], [place] [address] Aug, [facility] [address] [id number] [facility] [place] [address] Aug, [facility] [address] [id number] [facility] [place] [address] Aug, [facility] [address] [id number] [facility] [place] [address] Aug, [facility] [address] [id number] [facility] [place] [address] Aug, [facility] [address] [id number] [facility] [place] [address] Aug, [facility] [address] [id number] [facility] [place] [address] Aug, [facility] [address] [id number] [facility] [place] [address] Aug, [facility] [address] [id number] [address] [place] [address], [place] [address] Aug, [facility] [address] [id number] [address] [place] [address], [place] [address] Aug, [facility] [address] [id number] [address] [place] [address], [place] [address] Aug, [facility] [address] [place] [id number] Aug, [facility] [address] [id number] [address] [place] [address], [place] [address] Aug, [facility] [address] [id number] [address] [place] [address], [place] [address] Aug, [facility] [address] [id number] [facility] [place] [address] Aug, [facility] [address] [id number] [facility] [place] [address] Aug, [facility] [address] [id number] [facility] [place] [address] Aug, [facility] [address] [id number] [address] [place] [address], [place] [address] Aug, [facility] [address] [id number] [address] [place] [address], [place] [address] Aug, [facility] [address] [id number] [address] [place] [address], [place] [address] Aug, [facility] [address] [id number] [address] [place] [address], [place] [address] Aug, [facility] [address] [id number] [address] [place] [address], [place] [address] Aug, [facility] [address] [id number] [address] [place] [address], [place] [address] Aug, [facility] [address] [id number] [address] [place] [address], [place] [address] Aug, [facility] [address] [id number] [address] [place] [address], [place] [address] Aug, [facility] [address] [id number] [address] [place] [address], [place] [address] Aug, [facility] [address] [id number] [address] [place] [address], [place] [address] Aug, [facility] [address] [id number] [address] [place] [address], [place] [address] Aug, [facility] [address] [id number] [address] [place] [address], [place] [address] Aug, [facility] [address] [id number] [address] [place] [address], [place] [address] Aug, [facility] [address] [id number] [address] [place] [address], [place] [address] Jul, [facility] [address] [id number] [address] [place] [address], [place] [address] Jul, [facility] [address] [id number] [address] [place] [address] Jul, [facility] [address] [id number] [address] [place] [address], [place] [address] Jul, [facility] [address] [id number] [address] [place] [address], [place] [address] Jul, [facility] [address] [id number] [address] [place] [address], [place] [address] Jul, [facility] [address] [id number] [address] [place] [address], [place] [address] Jul, [facility] [address] [id number] [address] [place] [address], [place] [address] Jul, [facility] [address] [id number] [address] [place] [address], [place] [address] Jul, [facility] [address] [id number] [address] [place] [address], [place] [address] Jul, [facility] [address] [id number] [address] [place] [address], [place] [address] Jun, [facility] [address] [id number] [address] [place] [address], [place] [address] Jun, [facility] [address] [id number] [address] [place] [address], [place] [address] Jun, [facility] [address] [id number] [address] [place] [address] Jun, [facility] [address] [id number] [address] [place] [address] Jun, [facility] [address] [id number] [address] [place] [address] Jun, [facility] [address] [id number] [address] [place] [address], [place] [address] Jun, [facility] [address] [id number] [address] [place] [address] Jun, [facility] [address] [id number] [facility] [place] [address] Jun, [facility] [address] [id number] [address] [place] [address], [place] [address] Jun, [facility] [address] [id number] [address] [place] [address], [place] [address] 29 May, 2013 [facility] [address] [id number] [address] [place] [address], [place] [address] 29 Sep, 2013 [facility] [address] [id number] [address] [place] [address], [place] [address] 26 May, 2013 [facility] [address] [id number] [address] [place] [address], [place] [address] 26 May, 2013 [facility] [address] [id number] [address] [place] [address], [place] [address] 17 May, 2013 [facility] [address] [id number] [address] [place] [address], [place] [address] 17 May, 2013 [facility] [address] [id number] [address] [place] [address], [place] [address] 15 May, 2013 [facility] [address] [id number] [address] [place] [address], [place] [address] 15 May, 2013 [facility] [address] [id number] [address] [place] [address], [place] [address] 15 May, 2013 [facility] [address] [id number] [address] [place] [address], [place] [address] 15 May, 2013 [facility] [address] [id number] [address] [place] [address], [place] [address] 10 Sep, 2013 [facility] [address] [id number] [address] [place] [address], [place] [address] 10 Sep, 2013 [facility] [address] [id number] [address] [place] [address], [place] [address] 09 Sep, 2013 [facility] [address] [id number] [address] [place] [address], [place] [address] May, [facility] [address] [id number] [facility] [place] [address] May, [facility] [address] [id number] [facility] [place] [address] May, [facility] [address] [id number] [facility] [place] [address] Apr, [facility] [address] [id number] [address] [place] [address], [place] [address] Apr, [facility] [address] [id number] [address] [place] [address], [place] [address] Apr, [facility] [address] [id number] [address] [place] [address], [place] [address] Apr, [facility] [address] [id number] [address] [place] [address], [place] [address] Apr, [facility] [address] [id number] [address] [place] [address], [place] [address] Apr, [facility] [address] [id number] [address] [place] [address], [place] [address] Apr, [facility] [address] [id number] [address] [place] [address], [place] [address] Apr, [facility] [address] [id number] [address] [place] [address], [place] [address] Apr, [facility] [address] [id number] [address] [place] [address], [place] [address] Apr, [facility] [address] [id number] [address] [place] [address], [place] [address] Apr, [facility] [address] [id number] [address] [place] [address], [place] [address] Apr, [facility] [address] [id number] [address] [place] [address], [place] [address] Apr, [facility] [address] [id number] [facility] [place] [address] Apr, [facility] [address] [id number] [address] [place] [address], [place] [address] Apr, [facility] [address] [id number] [address] [place] [address], [place] [address] Mar, [facility] [address] [id number] [address] [place] [address], [place] [address] Mar, [facility] [address] [id number] [address] [place] [address], [place] [address] Mar, [facility] [address] [id number] [address] [place] [address], [place] [address] Mar, [facility] [address] [id number] [address] [place] [address], [place] [address] Mar, [facility] [address] [id number] [address] [place] [address], [place] [address] Mar, [facility] [address] [id number] [address] [place] [address], [place] [address] Mar, [facility] [address] [id number] [address] [place] [address], [place] [address] Mar, [facility] [address] [id number] [address] [place] [address], [place] [address] Mar, [facility] [address] [id number] [address] [place] [address], [place] [address] Mar, [facility] [address] [id number] [address] [place] [address], [place] [address] Mar, [facility] [address] [id number] [address] [place] [address], [place] [address] Mar, [facility] [address] [id number] [address] [place] [address], [place] [address] Mar, [facility] [address] [id number] [address] [place] [address], [place] [address] Mar, [facility] [address] [id number] [facility] [place] [address] Mar, 2013 [facility] [address] [id number] [facility] [place] [address] Mar, 2013 [facility] [address] [id number] [facility] [place] [address] Mar, [facility] [address] [id number] [facility] [place] [address] Mar, [facility] [address] [id number] [facility] [place] [address] Feb, [facility] [address] [id number] [address] [place] [address], [place] [id number] Feb, [facility] [address] [id number] [address] [place] [address], [place] [address] Feb, [facility] [address] [id number] [address] [place] [address], [place] [address] Feb, [facility] [address] [id number] [address] [place] [address], [place] [address] Feb, [facility] [address] [id number] [address] [place] [address], [place] [address] Feb, [facility] [address] [id number] [address] [place] [address], [place] [address] Feb, [facility] [address] [id number] [address] [place] [address], [place] [address] Feb, [facility] [address] [id number] [address] [place] [address], [place] [address] Feb, [facility] [address] [id number] [address] [place] [address], [place] [address] Feb, [facility] [address] [id number] [address] [place] [address], [place] [address] Feb, [facility] [address] [id number] [address] [place] [address], [place] [address] Feb, [facility] [address] [id number] [address] [place] [address], [place] [address] Feb, [facility] [address] [id number] [address] [place] [address], [place] [address] Feb, [facility] [address] [id number] [address] [place] [address], [place] [address] January, [facility] [address] [id number] [address] [place] [address], [place] [address] January, [facility] [address] [id number] [address] [place] [address], [place] [address] January, [facility] [address] [id number] [address] [place] [address], [place] [address] January, [facility] [address] [id number] [address] [place] [address], [place] [address] January, [facility] [address] [id number] [address] [place] [address], [place] [address] January, [facility] [address] [id number] [address] [place] [address], [place] [address] January, [facility] [address] [id number] [address] [place] [address], [place] [address] January, [facility] [address] [id number] [address] [place] [address], [place] [address] January, [facility] [address] [id number] [address] [place] [address], [place] [address] January, [facility] [address] [id number] [address] [place] [address], [place] [address] January, [facility] [address] [id number] [address] [place] [address], [place] [address] January, [facility] [address] [id number] [address] [place] [address], [place] [address] January, [facility] [address] [id number] [facility] [place] [address] January, [facility] [address] [id number] [facility] [place] [address] Dec, [facility] [address] [id number] [facility] [place] [address] Dec, [facility] [address] [id number] [address] [place] [address], [place] [address] Dec, [facility] [address] [id number] [address] [place] [address], [place] [address] Dec, [facility] [address] [id number] [address] [place] [address], [place] [address] Dec, [facility] [address] [id number] [address] [place] [address], [place] [address] Dec, [facility] [address] [id number] [address] [place] [address], [place] [address] Dec, [facility] [address] [id number] [address] [place] [address], [place] [address] Dec, [facility] [address] [id number] [address] [place] [address], [place] [address] Dec, [facility] [address] [id number] [address] [place] [address], [place] [address] Dec, [facility] [address] [id number] [address] [place] [address], [place] [address] Nov, [facility] [address] [id number] [address] [place] [address], [place] [address] Nov, [facility] [address] [id number] [address] [place] [address], [place] [address] Nov, [facility] [address] [id number] [address] [place] [address], [place] [address] Nov, [facility] [address] [id number] [address] [place] [address], [place] [address] Nov, [facility] [address] [id number] [facility] [place] [address] Nov, 2013 [facility] [address] [id number] [address] [place] [address], [place] [address] Nov, [facility] [address] [id number] [address] [place] [address], [place] [address] Nov, [facility] [address] [id number] [address] [place] [address], [place] [address] Nov, [facility] [address] [id number] [address] [place] [address], [place] [address] Nov, [facility] [address] [id number] [address] [place] [address], [place] [address] Oct, [facility] [address] [id number] [address] [place] [address], [place] [address] Oct, [facility] [address] [id number] [address] [place] [address], [place] [address] Oct, [facility] [address] [id number] [address] [place] [address], [place] [address] Oct, [facility] [address] [id number] [address] [place] [address], [place] [address] Oct, [facility] [address] [id number] [address] [place] [address], [place] [address] Oct, [facility] [address] [id number] [address] [place] [address], [place] [address] 14 Oct, 2013 [facility] [address] [id number] [address] [place] [address], [place] [address] 14 Oct, 2013 [facility] [address] [id number] [address] [place] [address], [place] [address] 05 Oct, 2013 [facility] [address] [id number] [address] [place] [address], [place] [address] Oct, [facility] [address] [id number] [address] [place] [address], [place] [address] 04 Oct, 2013 [facility] [address] [id number] [address] [place] [address], [place] [address] Oct, [facility] [address] [id number] [address] [place] [address], [place] [address] Oct, [facility] [address] [id number] [address] [place] [address], [place] [address] Oct, [facility] [address] [id number] [address] [place] [address], [place] [address] Sep, [facility] [address] [id number] [address] [place] [address], [place] [address] Sep, [facility] [address] [id number] [address] [place] [address], [place] [address] Sep, [facility] [address] [id number] [address] [place] [address], [place] [address] Sep, [facility] [address] [id number] [address] [place] [address], [place] [address] Sep, [facility] [address] [id number] [address] [place] [address], [place] [address] Sep, [facility] [address] [id number] [address] [place] [address], [place] [address] Sep, [facility] [address] [id number] [address] [place] [address], [place] [address] Sep, [facility] [address] [id number] [address] [place] [address], [place] [address] Sep, [facility] [address] [id number] [address] [place] [address], [place] [address] Sep, [facility] [address] [id number] [address] [place] [address], [place] [address] 10 Aug, 2013 [facility] [address] [id number] [address] [place] [address], [place] [address] Aug, [facility] [address] [id number] [address] [place] [address], [place] [address] Jul, [facility] [address] [id number] [address] [place] [address], [place] [address] Jul, [facility] [address] [id number] [address] [place] [address], [place] [address] Jul, [facility] [address] [id number] [address] [place] [address], [place] [address] Jul, [facility] [address] [id number] [address] [place] [address], [place] [address] Jul, [facility] [address] [id number] [address] [place] [address] Jul, [facility] [address] [id number] [address] [place] [address], [place] [address] Jul, [facility] [address] [id number] [address] [place] [id number] Jul, [facility] [address] [id number] [address] [place] [address] Jul, [facility] [address] [id number] [address] [place] [id number] Jul, [facility] [address] [id number] [address] [place] [address] Jul, [facility] [address] [id number] [address] [place] [id number] Jul, [facility] [address] [id number] [address] [place] [id number] Jul, [facility] [address] [id number] [address] [place] [id number] Jul, [facility] [address] [id number] [address] [place] [id number] Jul, [facility] [address] [id number] [address] [place] [address], [place] [address] 05 Jul, 2012 [facility] [address] [id number] [address] [place] [address], [place] [address] Jul, 2012 [facility] [address] [id number] [address] [place] [address], [place] [address] Jul, 2012 [facility] [address] [id number] [address] [place] [address], [place] [address] Jul, 2012 [facility] [address] [id number] [address] [place] [address], [place] [address] Jun, 2012 [facility] [address] [id number] [address] [place] [address], [place] [address] Jun, 2012 [facility] [address] [id number] [address] [place] [address], [place] [address] Jun, 2012 [facility] [address] [id number] [address] [place] [address], [place] [address] Jun, 2012 [facility] [address] [id number] [address] [place] [address], [place] [address] Jun, 2012 [facility] [address] [id number] [address] [place] [address], [place] [address] Jun, 2012 [facility] [address] [id number] [address] [place] [address], [place] [address] Jun, 2012 [facility] [address] [id number] [address] [place] [address], [place] [address] Jun, 2012 [facility] [address] [id number] [address] [place] [id number] Jun, [facility] [address] [id number] [address] [place] [address], [place] [address] Jun, [facility] [address] [id number] [address] [place] [address], [place] [address] Jun, [facility] [address] [id number] [address] [place] [address], [place] [address] May, [facility] [address] [id number] [address] [place] [address], [place] [address] 25 May, 2012 [facility] [address] [id number] [address] [place] [address], [place] [address] 19 May, [address] [facility] [address] [id number] [address] [place] [address], [place] [address] 17 May, 2012 [facility] [address] [id number] [address] [place] [address], [place] [address] 11 May, 2012 [facility] [address] [id number] [address] [place] [address], [place] [address] 10 May, 2012 [facility] [address] [id number] [address] [place] [address], [place] [address] 09 May, [address] [facility] [address] [id number] [address] [place] [address], [place] [address] 05 May, [address] [facility] [address] [id number] [address] [place] [address], [place] [address] Apr, [facility] [address] [id number] [address] [place] [address], [place] [address] Apr, [facility] [address] [id number] [address] [place] [address], [place] [address] Apr, [facility] [address] [id number] [address] [place] [address], [place] [address] Apr, [facility] [address] [id number] [address] [place] [address], [place] [address] Apr, [facility] [address] [id number] [address] [place] [address], [place] [address] Mar, [facility] [address] [id number] [address] [place] [address], [place] [address] Mar, [facility] [address] [id number] [address] [place] [address], [place] [address] Mar, [facility] [address] [id number] [address] [place] [address], [place] [address] Mar, [facility] [address] [id number] [address] [place] [address], [place] [address] Mar, [facility] [address] [id number] [address] [place] [address], [place] [address] Mar, [facility] [address] [id number] [address] [place] [address], [place] [address] Mar, [facility] [address] [id number] [address] [place] [address], [place] [address] Mar, [facility] [address] [id number] [address] [place] [address], [place] [address] Feb, [facility] [address] [id number] [address] [place] [address], [place] [address] Feb, [facility] [address] [id number] [address] [place] [address], [place] [address] January, [facility] [address] [id number] [address] [place] [address], [place] [address] January, [facility] [address] [id number] [address] [place] [address], [place] [address] Dec, [facility] [address] [id number] [address] [place] [address], [place] [address] Dec, [facility] [address] [id number] [address] [place] [address], [place] [address] Nov, [facility] [address] [id number] [address] [place] [address], [place] [address] Nov, [facility] [address] [id number] [address] [place] [address], [place] [address] Nov, [facility] [address] [id number] [address] [place] [address], [place] [address] Nov, [facility] [address] [id number] [address] [place] [address], [place] [address] Oct, [facility] [address] [id number] [address] [place] [address], [place] [address] Oct, 2012 [facility] [address] [id number] [address] [place] [address], [place] [address] Oct, [facility] [address] [id number] [address] [place] [address], [place] [address] Oct, 2012 [facility] [address] [id number] [address] [place] [address], [place] [address] 16 Oct, 2012 [facility] [address] [id number] [address] [place] [address], [place] [address] 14 Oct, 2012 [facility] [address] [id number] [address] [place] [address], [place] [address] 08 Oct, 2012 [facility] [address] [id number] [address] [place] [address], [place] [address] 07 Oct, 2012 [facility] [address] [id number] [address] [place] [address], [place] [address] 03 Oct, [address] [facility] [address] [id number] [address] [place] [address], [place] [address] Sep, [facility] [address] [id number] [address] [place] [address], [place] [address] Sep, [facility] [address] [id number] [address] [place] [address], [place] [address] Sep, [facility] [address] [id number] [address] [place] [address], [place] [address] Sep, [facility] [address] [id number] [address] [place] [address], [place] [address] Sep, [facility] [address] [id number] [address] [place] [address], [place] [address] Sep, [facility] [address] [id number] [address] [place] [address], [place] [address] Sep, [facility] [address] [id number] [address] [place] [address], [place] [address] Sep, [facility] [address] [id number] [address] [place] [address], [place] [address] Aug, [facility] [address] [id number] [address] [place] [address], [place] [address] Aug, [facility] [address] [id number] [address] [place] [address], [place] [address] Aug, [facility] [address] [id number] [address] [place] [address], [place] [address] Aug, [facility] [address] [id number] [address] [place] [address], [place] [address] Aug, [facility] [address] [id number] [address] [place] [address], [place] [address] Aug, [facility] [address] [id number] [address] [place] [address], [place] [address] Aug, [facility] [address] [id number] [address] [place] [address], [place] [address] Aug, [facility] [address] [id number] [address] [place] [address], [place] [address] Jul, [facility] [address] [id number] [address] [place] [address], [place] [address] Jul, [facility] [address] [id number] [address] [place] [address], [place] [address] Jul, [facility] [address] [id number] [address] [place] [address], [place] [address] Jul, [facility] [address] [id number] [address] [place] [address], [place] [address] Jul, [facility] [address] [id number] [address] [place] [address], [place] [address] Jul, [facility] [address] [id number] [address] [place] [address], [place] [address] Jun, [facility] [address] [id number] [address] [place] [address], [place] [address] Jun, [facility] [address] [id number] [address] [place] [address], [place] [address] Jun, [facility] [address] [id number] [address] [place] [address], [place] [address] Jun, [facility] [address] [id number] [address] [place] [address], [place] [address] Jun, [facility] [address] [id number] [address] [place] [address], [place] [address] Jun, [facility] [address] [id number] [address] [place] [address], [place] [address] Jun, [facility] [address] [id number] [address] [place] [address], [place] [address] Jun, [facility] [address] [id number] [address] [place] [address], [place] [address] 10 Jun, 2012 [facility] [address] [id number] [address] [place] [address], [place] [address] 26 May, 2012 [facility] [address] [id number] [address] [place] [address], [place] [address] 24 May, 2012 [facility] [address] [id number] [address] [place] [address], [place] [address] 18 May, 2012 [facility] [address] [id number] [address] [place] [address], [place] [address] 30 Apr, 2012 [facility] [address] [id number] [address] [place] [address], [place] [address] 29 Apr, 2012 [facility] [address] [id number] [address] [place] [address], [place] [address] Apr, [facility] [address] [id number] [address] [place] [address], [place] [address] 14 Apr, 2012 [facility] [address] [id number] [address] [place] [address], [place] [address] Apr, [facility] [address] [id number] [address] [place] [address], [place] [address] Apr, [facility] [address] [id number] [address] [place] [address], [place] [address] Mar, [facility] [address] [id number] [address] [place] [address], [place] [address] Mar, [facility] [address] [id number] [address] [place] [address], [place] [address] Mar, [facility] [address] [id number] [address] [place] [address], [place] [address] Mar, [facility] [address] [id number] [address] [place] [address], [place] [address] Feb, [facility] [address] [id number] [address] [place] [address], [place] [address] Feb, [facility] [address] [id number] [address] [place] [address], [place] [address] Feb, [facility] [address] [id number] [address] [place] [address], [place] [address] Feb, [facility] [address] [id number] [address] [place] [address], [place] [address] Feb, [facility] [address] [id number] [address] [place] [address], [place] [address] January, [facility] [address] [id number] [address] [place] [address], [place] [address] January, [facility] [address] [id number] [address] [place] [address], [place] [address] January, [facility] [address] [id number] [address] [place] [address], [place] [address] January, [facility] [address] [id number] [address] [place] [address], [place] [address] January, [facility] [address] [id number] [address] [place] [address], [place] [address] January, [facility] [address] [id number] [address] [place] [address], [place] [address] 24 Dec, 2011 [facility] [address] [id number] [address] [place] [address], [place] [address] 24 Dec, 2011 [facility] [address] [id number] [address] [place] [address], [place] [id number] 17 Dec, 2011 [facility] [address] [id number] [address] [place] [address], [place] [address] 09 Dec, 2011 [facility] [address] [id number] [address] [place] [address], [place] [address] 06 Dec, 2011 [facility] [address] [id number] [address] [place] [address], [place] [address] 27 Nov, 2011 [facility] [address] [id number] [address] [place] [address], [place] [address] 14 Nov, 2011 [facility] [address] [id number] [address] [place] [address], [place] [address] 12 Nov, 2011 [facility] [address] [id number] [address] [place], [place] [address], [place] [address] 07 Nov, 2011 [facility] [address] [id number] [address] [place] [address], [place] [address] 29 Oct, 2011 [facility] [address] [id number] [address] [place] [address], [place] [address] 28 Oct, 2011 [facility] [address] [id number] [address] [place] [address], [place] [address] 24 Oct, 2011 [facility] [address] [id number] [address] [place] [address], [place] [address] 13 Oct, 2011 [facility] [address] [id number] [address] [place] [address], [place] [address] 08 Oct, 2011 [facility] [address] [id number] [address] [place] [address], [place] [address] Sep, [facility] [address] [id number] [address] [place] [address], [place] [address] Sep, [facility] [address] [id number] [address] [place] [address], [place] [address] Sep, [facility] [address] [id number] [address] [place] [address], [place] [address] Sep, [facility] [address] [id number] [address] [place] [address], [place] [address] Sep, [facility] [address] [id number] [address] [place] [address], [place] [address] Sep, [facility] [address] [id number] [address] [place] [address], [place] [address] Aug, [facility] [address] [id number] [address] [place] [address], [place] [address] Aug, [facility] [address] [id number] [address] [place] [id number] Aug, [facility] [address] [id number] [address] [place] [address], [place] [address] Jul, [facility] [address] [id number] [address] [place] [id number] Jul, [facility] [address] [id number] [address] [place] [id number] Jul, [facility] [address] [id number] [address] [place] [id number] Jul, [facility] [address] [id number] [address] [place] [address], [place] [address] Jun, [facility] [address] [id number] [address] [place] [address], [place] [address] Jun, [facility] [address] [id number] [address] [place] [id number] Jun, [facility] [address] [id number] [address] [place] [id number] 10 Jun, 2011 [facility] [address] [id number] [address] [place] [address], [place] [address] 10 Jun, 2011 [facility] [address] [id number] [address] [place] [address], [place] [address] 10 Jun, 2011 [facility] [address] [id number] [address] [place] [address], [place] [address] 11 Mar, 2011 [facility] [address] [id number] [address] [place] [address], [place] [address] 18 Dec, 2010 [facility] [address] [id number] [address] [place] [address], [place] [address] 11 Dec, 2010 [facility] [address] [id number] [address] [place] [address], [place] [address] 18 Nov, 2010 [facility] [address] [id number] [address] [place] [address], [place] [address] 16 Nov, 2010 [facility] [address] [id number] [address] [place] [address], [place] [address] 10 Sep, 2010 [facility] [address] [id number] [address] [place] [address], [place] [address] 31 Aug, 2010 [facility] [address] [id number] [address] [place] [address], [place] [address] 29 Aug, 2010 [facility] [address] [id number] [address] [place] [address], [place] [address] 29 Aug, 2010 [facility] [address] [id number] [address] [place] [address], [place] [address] 29 Aug, 2010 [facility] [address] [id number] [address] [place] [address], [place] [address] 27 Aug, 2010 [facility] [address] [id number] [address] [place] [address], [place] [address] 14 Aug, 2010 [facility] [address] [id number] [address] [place] [address], [place] [address] 08 Aug, 2010 [facility] [address] [id number] [address] [place] [address], [place] [address] 08 Aug, 2010 [facility] [address] [id number] [address] [place] [address], [place] [address] Aug, [facility] [address] [id number] [address] [place] [address], [place] [address] Aug, [facility] [address] [id number] [address] [place] [address], [place] [address] Aug, [facility] [address] [id number] [address] [place] [address], [place] [address] Aug, [facility] [address] [id number] [address] [place] [address], [place] [address] Jul, [facility] [address] [id number] [address] [place] [address], [place] [address] Jul, [facility] [address] [id number] [address] [place] [address], [place] [address] Jul, [facility] [address] [id number] [address] [place] [address], [place] [address] Jul, [facility] [address] [id number] [address] [place] [address], [place] [address] Jul, [facility] [address] [id number] [address] [place] [address], [place] [address] Jul, [facility] [address] [id number] [address] [place] [address], [place] [address] Jun, [facility] [address] [id number] [address] [place] [address], [place] [address] Jun, [facility] [address] [id number] [address] [place] [address], [place] [address] Jun[facility] [address] [id number] [address] [place] [address], [place] [address] Jun, [facility] [address] [id number] [address] [place] [address], [place] [address] 16 Apr, 2010 [facility] [address] [id number] [address] [place] [address], [place] [address] Mar, [facility] [address] [id number] [address] [place] [address], [place] [address] Feb, [facility] [address] [id number] [address] [place] [address], [place] [address] January, [facility] [address] [id number] [address] [place] [address], [place] [address] 15 Dec, 2009 [facility] [address] [id number] [address] [place] [address], [place] [address] Nov, [facility] [address] [id number] [address] [place] [address], [place] [address] Aug, [facility] [address] [id number] [address] [place] [address], [place] [address] Aug, [facility] [address] [id number] [address] [place] [id number] Aug, [facility] [address] [id number] [address] [place] [id number] Jul, [facility] [address] [id number] [address] [place] [id number] Jul, [facility] [address] [id number] [address] [place] [id number] Jul, [facility] [address] [id number] [address] [place] [id number] 30 Jun, 2009 [facility] [address] [id number] [address] [place] [address], [place] [address] 29 Jun, 2009 [facility] [address] [id number] [address] [place] [id number] Jun, [facility] [address] [id number] [address] [place] [id number] 22 Jun, 2009 [facility] [address] [id number] [address] [place] [id number] Jun, [facility] [address] [facility] [id number] [address] [place] [id number] Jun, [facility] [address] [facility] [id number] [address] [place] [phone] Apr, [facility] [address] [facility] [id number] [address] [place] [id number] Apr, [facility] [address] [facility] [id number] [address] [place] [id number] Feb, [facility] [address] [facility] [id number] [address] [place] [id number] January, [facility] [address] [facility] [id number] [address] [place] [id number] Dec, IMMUNIZATIONS No Known Immunizations SOCIAL HISTORY Never Assessed REASON FOR VISIT PLAN OF CARE VITAL SIGNS Height 67 in 2012-03-22 Weight 332.9 lbs 2012-03-22 Temperature 98.3 degrees Fahrenheit 2012-03-22 Heart Rate 68 bpm 2012-03-22 Respiratory Rate 24 2012-03-22 Blood pressure systolic 102 mmHg 2012-03-22 Blood pressure diastolic 59 mmHg 2012-03-22 MEDICATIONS Unknown Medications RESULTS No Results PROCEDURES Procedure Date Ordered Result Body Site DRUG SCREEN, SINGLE March 22, 2012 DRUG SCREEN, QUALITATE/MULTI March 22, 2012 URINALYSIS, AUTO, W/O SCOPE March 22, 2012 INSTRUCTIONS MEDICATIONS ADMINISTERED No Known Medications MEDICAL (GENERAL) HISTORY Type Description Date Medical History type II diabetes Medical History coronary artery disease stress test 15 Medical History chronic obstructive pulmonary disease (C OPD) Medical History gastroesophageal reflux disease (GERD) Medical History acute renal failure Medical History erectile dysfunction Medical History hyperlipidemia Medical History obesity Medical History skin cancer-basal cell R confucianism (removed ) Medical History Arthritis Medical History [...] urinate 09/16/15 Hospitalization History [facility] inpatient mental health ea rly 2000's Hospitalization History hyperkalemia 10/2017 Hospitalization History fluid in lung
--- OUTSIDE RECORDS SUMMARY | 2020-03-01 17:50 | XMS REPORT ---
Author Michele Joy Organization [facility] Address [address] [place] [address] Care Team Providers Care Clipper Automatic Name Role Phone YONATHAN RIOS Unavailable PROBLEMS Type Condition ICD9-CM Code [id number] Code Onset Dates Condition S tatus SNOMED Code Problem Leukocytosis D72.829 Active 9388960 06 Problem Bipolar I disorder, most recent episode (or curr ent) mixed, moderate F31.62 Active 16702758 Problem Reactive airway disease J45.909 Active 363536280132 Problem Anxiety F41.9 Active 65178718 Problem Insomnia, unspecified type G47.00 Act sharon 055416339 Problem Essential hypertension I10 Active 45666184 Problem Morbid obesity E66.01 Active 46953 6002 Problem Skin cancer C44.90 Active 90978571 7 Problem DM neuro manif type II E11.49 Active 70511116 Problem Mild cognitive impairment G31.84 Acti ve 693426915 Problem Benign prostatic hyperplasia with lower urinary tract symptoms, unspecified morphology N40.1 Active 37312 6007 Problem Chronic pain G89.29 Active 9174471 1 Problem Diabetes E11.9 Active 26038613 Problem Retinal edema H35.81 Active 116019 6 Problem Anemia of chronic illness D63.8 Acti ve 109807407 Problem Falling R29.6 Active 360930577 Problem Pressure ulcer of other site, stage 3 L89.893 Active 044677734 Problem 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 Active 621077992 Problem Eye exam abnormal R93.8 Active 16 6151889 Problem Pure hypercholesterolemia E78.00 Acti ve 268188158 Problem Dysuria R30.0 Active 02674568 Problem Bipolar disorder, in partial remission, most rec ent episode depressed F31.75 Active 03097351 Problem Hypokalemia E87.6 Active 49713198 Problem Other iron deficiency anemia D50.8 A ctive 21917809 Problem Eustachian tube dysfunction, unspecified laterality H69.80 Active 53846359 Problem Primary osteoarthritis of right knee M17.11 Active 111486068629526 Problem Cough R05 Active 76296529 Problem Bipolar disorder F31.9 Active 137 73126 Problem Chronic diastolic (congestive) heart failure I50.3 2 Active 185957541 Problem Psychophysiological insomnia F51.04 A ctive 151646669 Problem Gastroesophageal reflux disease without esophagitis K21.9 Active 034190965 Problem Polyneuropathy associated with underlying disease G63 Active 297394629 Problem Other secondary acute gout, 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 0 Active 271037035 Problem Diabetic polyneuropathy associated with type 2 d iabetes mellitus E11.42 Active 85858431 Problem Chronic lymphocytic leukemia C91.10 A ctive 43775412 Problem Bilateral primary osteoarthritis of knee M17.0 Active 411467301 Problem Type 2 diabetes mellitus with diabetic neuropathy, uns pecified E11.40 Active 04414037 Problem 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 Active 975037371 Problem Lymphocytosis D72.820 Active 645530 09 Problem Mood disorder F39 Active 086620 05 Problem Bipolar I disorder, most recent episode depressed, moderat e F31.32 Active 992551769 ALLERGIES No Information ENCOUNTERS Encounter Location Date Diagnosis [facility] [address] [facility] [id number] [address] [place] [id number] Dec, [facility] [address] [facility] [id number] [address] [place] [id number] Dec, Chronic pain G89.29 [facility] [address] [facility] [id number] [address] [place] [id number] 13 Dec, 2019 [facility] [address] [id number] [address] [place] [id number] Dec, [facility] [address] [facility] [id number] [address] [place] [phone] Dec, Gastroesophageal reflux dise ase without esophagitis K21.9 and Pure hypercholesterolemia E78.00 [facility] [address] [facility] [id number] [address] [place] [phone] Dec, Mood disorder F39 [facility] [address] [facility] [id number] [address] [place] [id number] 31 Nov, 2019 Other secondary acute gout, 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 [facility] [address] [facility] [id number] [address] [place] [phone] Nov, Gastroesophageal reflux dise ase without esophagitis K21.9 [facility] [address] [facility] [id number] [address] [place] [id number] Nov, Chronic pain G89.29 [facility] [address] [facility] [id number] [address] [place] [phone] Nov, Bipolar I disorder, most rec ent episode depressed, moderate F31.32 ; Anxiety F41.9 and Mild cognitive impairment G31.84 [place] [address] [facility] [id number] [address] [place] [id number] Nov, [place] [address] [facility] [id number] [address] [place] [phone] Nov, Syncope, unspecified syncope type R55 [facility] [address] [facility] [id number] [address] [place] [phone] Nov, Mood disorder F39 [facility] [address] [facility] [id number] [address] [place] [id number] Oct, Chronic pain G89.29 [facility] [address] [facility] [id number] [address] [place] [id number] Oct, [facility] [address] [facility] [id number] [address] [place] [phone] Oct, Mood disorder F39 [facility] [address] [facility] [id number] [address] [place] [phone] Oct, [facility] [address] [facility] [id number] [address] [place] [id number] Oct, Bipolar disorder, in partial remission, most recent episode depressed F31.75 and Mild cognitive impairment G31.84 [facility] [address] [facility] [id number] [address] [place] [phone] Oct, Mood disorder F39 [facility] [address] [id number] [address] [place] [id number] Sep, [facility] [address] [id number] [address] [place] [id number] Sep, Mood disorder F39 [facility] [address] [id number] [address] [place] [id number] Sep, Bipolar disorder, in partial remission, most recent episode depressed F31.75 and Mild cognitive impairment G31.84 [facility] [address] [id number] [address] [place] [id number] Sep, Mood disorder F39 [facility] [address] [id number] [address] [place] [phone] Sep, [facility] [address] [id number] [address] [place] [id number] Sep, Mood disorder F39 [facility] [address] [id number] [address] [place] [id number] Sep, [facility] [address] [id number] [address] [place] [phone] Aug, Mood disorder F39 [facility] [address] [id number] [address] [place] [phone] Aug, [facility] [address] [id number] [address] [place] [id number] Aug, [facility] [address] [id number] [address] [place] [phone] Aug, [facility] [address] [id number] [address] [place] [phone] Aug, [facility] [address] [id number] [address] [place] [phone] Aug, [facility] [address] [id number] [address] [place] [phone] Aug, [facility] [address] [id number] [address] [place] [phone] Aug, [facility] [address] [id number] [address] [place] [id number] Aug, Essential hypertension I10 [facility] [address] [id number] [address] [place] [phone] Aug, Bipolar disorder, in partial remission, most recent episode depressed F31.75 and Mild cognitive impairment G31.84 [facility] [address] [id number] [address] [place] [phone] Aug, Mood disorder F39 [facility] [address] [id number] [address] [place] [phone] Aug, [facility] [address] [id number] [address] [place] [id number] Aug, Bipolar disorder, in partial remission, most recent episode depressed F31.75 and Mild cognitive impairment G31.84 [facility] [address] [id number] [address] [place] [id number] Jul, Bipolar disorder, in partial remission, most recent episode depressed F31.75 and Mild cognitive impairment G31.84 [facility] [address] [id number] [address] [place] [id number] Jul, Psychophysiological insomnia F51.04 [facility] [address] [id number] [address] [place] [phone] Jul, [facility] [address] [id number] [address] [place] [phone] Jul, [facility] [address] [id number] [address] [place] [id number] Jul, [facility] [address] [id number] [address] [place] [phone] Jul, [facility] [address] [id number] [address] [place] [phone] Jul, [place] [address] [facility] [id number] [address] [place] [id number] Jul, [place] [address] [facility] [id number] [address] [place] [id number] Jul, Bipolar disorder, in partial remission, most recent episode depressed F31.75 and Mild cognitive impairment G31.84 [place] [address] [place] [id number] [address] [place] [id number] Jul, Chronic pain G89.29 ; Diabet es E11.9 ; Essential hypertension I10 ; Ill feeling R68.89 ; Local infection of the skin and subcutaneous tissue, unspecified L08.9 and Other injury of unspecified body region, initial encounter T14.8XXA [place] [address] [place] [id number] [address] [place] [phone] Jun, Bipolar disorder, in partial remission, most recent episode depressed F31.75 and Mild cognitive impairment G31.84 [place] [address] [place] [id number] [address] [place] [phone] Jun, [place] [address] [facility] [id number] [address] [place] [phone] Jun, Bipolar disorder, in partial remission, most recent episode depressed F31.75 and Mild cognitive impairment G31.84 [place] [id number] [place] [phone] Jun, Psychophysiological insomnia F51.04 [place] [address] [place] [id number] [address] [place] [id number] Jun, Psychophysiological insomnia F51.04 ; Chronic pain G89.29 ; Bipolar I disorder, most recent episode (or current) mixed, moderate F31.62 ; 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 ; Polyneuropathy associated with underlying disease G63 ; Type 2 diabetes mellitus with diabetic neuropathy, unspecified E11.40 ; longterm (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 Z79.4 and Hyperglycemia R73.[address] [id number] [address] [place] [id number] Jun, Bipolar disorder, in partial remission, most recent episode depressed F31.75 and Mild cognitive impairment G31.84 [facility] [address] [id number] [address] [place] [id number] Jun, [facility] [address] [facility] [id number] [address] [place] [phone] Jun, Bipolar disorder F31.9 [facility] [address] [facility] [id number] [address] [place] [id number] May, Bipolar disorder, in partial remission, most recent episode depressed F31.75 and Mild cognitive impairment G31.84 [facility] [address] [id number] [address] [place] [id number] May, [facility] [address] [facility] [id number] [address] [place] [phone] Apr, Chronic pain G89.29 and Bipo lar disorder F31.9 [facility] [address] [id number] [address] [place] [id number] Mar, Bipolar disorder F31.9 and C hronic pain G89.29 [facility] [address] [facility] [id number] [address] [place] [phone] Feb, Bipolar disorder F31.9 [facility] [address] [id number] [address] [place] [id number] Feb, Cellulitis of right upper ex tremity L03.113 and Skin abrasion T14.8XXA [facility] [address] [id number] [address] [place] [id number] Feb, Bipolar disorder, in partial remission, most recent episode depressed F31.75 and Mild cognitive impairment G31.84 [facility] [address] [id number] [address] [place] [id number] Feb, Chronic pain G89.29 [facility] [address] [facility] [id number] [address] [place] [id number] Feb, Bipolar disorder, in partial remission, most recent episode depressed F31.75 and Mild cognitive impairment G31.84 [facility] [address] [id number] [address] [place] [phone] January, Bipolar disorder, in partial remission, most recent episode depressed F31.75 and Mild cognitive impairment G31.84 [facility] [address] [id number] [address] [place] [id number] January, Chronic pain G89.29 and Bipo lar disorder F31.9 [facility] [address] [id number] [address] [place] [id number] January, Bipolar disorder, in partial remission, most recent episode depressed F31.75 and Mild cognitive impairment G31.84 [facility] [address] [id number] [address] [place] [phone] Dec, [facility] [address] [id number] [address] [place] [phone] Dec, Chronic pain G89.29 and Bipo lar disorder F31.9 [facility] [address] [id number] [address] [place] [id number] Dec, Edema of both lower extremit ies R60.0 [facility] [address] [id number] [address] [place] [id number] Dec, Bipolar disorder F31.9 [facility] [address] [id number] [address] [place] [phone] Dec, Bipolar disorder, in partial remission, most recent episode depressed F31.75 and Mild cognitive impairment G31.84 [facility] [address] [id number] [address] [place] [phone] Nov, [facility] [address] [id number] [address] [place] [id number] Nov, Chronic pain G89.29 [facility] [address] [id number] [address] [place] [id number] Nov, Bipolar disorder, in partial remission, most recent episode depressed F31.75 and Mild cognitive impairment G31.84 [place] [address] [place] [id number] [address] [place] [id number] Nov, Bipolar disorder F31.9 [place] [address] [place] [id number] [address] [place] [phone] 04 Nov, 2018 Encounter [facility] exam Z00.00 ; Polyneuropathy [...] N40.1 and Essential hypertension I10 [place] [address] [place] [id number] [address] [place] [id number] Oct, Chronic pain G89.[address] [phone] Oct, Diabetes E11.9 [place] [address] [id number] Oct, Bipolar I disorder, most rec ent episode (or current) mixed, moderate F31.62 and Mild cognitive impairment G31.84 [place] [address] [place] [id number] [address] [place] [id number] Oct, Bipolar I disorder, most rec ent episode (or current) mixed, moderate F31.62 and Mild cognitive impairment G31.84 [place] [address] [place] [id number] [address] [place] [id number] Sep, Bipolar I disorder, most rec ent episode (or current) mixed, moderate F31.62 and Mild cognitive impairment G31.84 [place] [address] [place] [id number] [address] [place] [id number] Sep, [facility] [address] [facility] [id number] [address] [place] [phone] Sep, Diabetes E11.9 ; Hypoxia R09 .02 ; Hyperglycemia R73.9 ; Therapeutic drug monitoring Z51.81 ; BMI 50.0-59.9, adult Z68.43 and Skin cancer C44.90 [place] [address] [facility] [id number] [address] [place] [phone] Sep, Chronic pain G89.29 [place] [address] [facility] [id number] [address] [place] [phone] Sep, Bipolar I disorder, most rec ent episode (or current) mixed, moderate F31.62 [place] [address] [facility] [id number] [address] [place] [phone] Sep, [place] [address] [place] [id number] [address] [place] [id number] Sep, [facility] [address] [facility] [id number] [address] [place] [id number] Aug, Chronic pain G89.29 [place] [address] [facility] [id number] [address] [place] [phone] Aug, Bipolar I disorder, most rec ent episode (or current) mixed, moderate F31.62 [place] [address] [facility] [id number] [address] [place] [id number] Aug, Bipolar I disorder, most rec ent episode (or current) mixed, moderate F31.62 and Mild cognitive impairment G31.84 [place] [address] [facility] [id number] [address] [place] [phone] Jul, [place] [address] [facility] [id number] [address] [place] [phone] Jul, Chronic pain G89.29 [facility] [address] [facility] [id number] [address] [place] [id number] Jul, Bipolar I disorder, most rec ent episode (or current) mixed, moderate F31.62 and Mild cognitive impairment G31.84 [place] [address] [facility] [id number] [address] [place] [id number] Jul, Bipolar I disorder, most rec ent episode (or current) mixed, moderate F31.62 and MCI (mild cognitive impairment) G31.84 [facility] [address] [facility] [id number] [address] [place] [phone] Jul, [facility] [address] [facility] [id number] [address] [place] [phone] Jul, [place] [address] [facility] [id number] [address] [place] [id number] Jul, Bipolar I disorder, most rec ent episode (or current) mixed, moderate F31.62 [place] [address] [facility] [id number] [address] [place] [phone] Jul, Chronic pain G89.29 [place] [address] [facility] [id number] [address] [place] [phone] Jun, Bipolar I disorder, most rec ent episode (or current) mixed, moderate F31.62 [place] [address] [facility] [id number] [address] [place] [phone] Jun, Pre-procedure lab exam Z01.8 12 [place] [address] [place] [id number] [address] [place] [id number] Jun, [facility] [address] [facility] [id number] [place] [id number] Jun, [facility] [address] [facility] [id number] [address] [place] [phone] Jun, [place] [address] [place] [id number] [address] [place] [phone] Jun, Forgetfulness R68.89 ; Pre-s yncope R55 ; Localized edema R60.0 ; Other iron deficiency anemia D50.8 and BMI 50.0-59.9, adult Z68.43 [facility] [address] [facility] [id number] [address] [place] [address] Jun, Chronic pain G89.29 [facility] [address] [facility] [id number] [address] [place] [id number] 05 Jun, 2018 Chronic pain G89.29 [facility] [address] [facility] [id number] [address] [place] [id number] Jun, Bipolar I disorder, most rec ent episode (or current) mixed, moderate F31.62 [facility] [address] [facility] [id number] [address] [place] [id number] May, Chronic pain G89.29 [facility] [address] [facility] [id number] [address] [place] [id number] Apr, [place] [address] [facility] [id number] [address] [place] [id number] Apr, Chronic pain G89.29 [facility] [address] [place] [id number] [address] [place] [phone] Apr, Primary osteoarthritis of ri ght knee M17.11 [facility] [address] [facility] [id number] [address] [place] [id number] Mar, [facility] [address] [facility] [id number] [address] [place] [id number] Mar, BMI 50.0-59.9, adult Z68.43 and Bipolar disorder, in partial remission, most recent episode depressed F31.75 [facility] [address] [facility] [id number] [address] [place] [address] Mar, Diabetes E11.9 ; Pure hyperc holesterolemia E78.00 ; Essential hypertension I10 ; Nausea with vomiting, unspecified R11.2 and Headache, unspecified headache type R51 [facility] [address] [facility] [id number] [address] [place] [phone] Mar, Bipolar I disorder, most rec ent episode (or current) mixed, moderate F31.62 [place] [address] [facility] [id number] [address] [place] [id number] Mar, Bipolar I disorder, most rec ent episode (or current) mixed, moderate F31.62 [facility] [address] [facility] [id number] [address] [place] [id number] Mar, Chronic pain G89.29 [facility] [address] [facility] [id number] [address] [place] [id number] Mar, Bipolar I disorder, most rec ent episode (or current) mixed, moderate F31.62 [place] [address] [facility] [id number] [address] [place] [id number] Feb, Bipolar I disorder, most rec ent episode (or current) mixed, moderate F31.62 [place] [address] [facility] [id number] [address] [place] [id number] Feb, Chronic pain G89.29 [place] [address] [place] [id number] [address] [place] [id number] Feb, Decubitus ulcer of right josselin t, stage 3 L89.893 and BMI 50.0-59.9, adult Z68.43 [place] [address] [facility] [id number] [address] [place] [phone] Feb, Bipolar I disorder, most rec ent episode (or current) mixed, moderate F31.62 [place] [address] [place] [id number] [address] [place] [phone] Feb, [facility] [address] [facility] [id number] [address] [place] [id number] January, [place] [address] [facility] [id number] [address] [place] [id number] January, Chronic pain G89.29 [facility] [address] [facility] [id number] [address] [place] [id number] January, Bipolar I disorder, most rec ent episode (or current) mixed, moderate F31.62 [place] [address] [address] [place] [id number] [address] [place] [phone] January, Bipolar I disorder, most rec ent episode (or current) mixed, moderate F31.62 [place] [address] [place] [id number] [address] [place] [address] [id number] Dec, Bipolar I disorder, most rec ent episode (or current) mixed, moderate F31.62 and BMI 50.0-59.9, adult Z68.43 [place] [place] [address] [place] [id number] [place] [address] Dec, Bipolar I disorder, most rec ent episode (or current) mixed, moderate F31.62 [place] [address] [address] Dec, Chronic pain G89.29 [place] [address] [address] Dec, DM neuro manif type II E11.4 9 ; Right flank pain R10.9 ; longterm 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 Z79.891 ; Encounter for medication monitoring Z51.81 and BMI 50.0-59.9, adult Z68.43 [place] [address] [address] Dec, Bipolar I disorder, most rec ent episode (or current) mixed, moderate F31.62 [facility] [place] [address] [place] [id number] [place] [phone] Nov, Bipolar I disorder, most rec ent episode (or current) mixed, moderate F31.62 [place] [address] [place] [id number] [place] [phone] Nov, Chronic pain G89.29 [place] [address] [place] [id number] [place] [phone] Nov, Bipolar I disorder, most rec ent episode (or current) mixed, moderate F31.62 [place] [address] [place] [id number] [place] [phone] Nov, Hypokalemia E87.6 [facility] [address] [place] [id number] [place] [phone] Nov, Bipolar I disorder, most rec ent episode (or current) mixed, moderate F31.62 [facility] [address] [place] [id number] [place] [phone] Oct, Chronic pain G89.29 [place] [address] [address] Oct, BMI 50.0-59.9, adult Z68.43 and Bipolar I disorder, most recent episode (or current) mixed, moderate F31.62 [place] [address] [place] [id number] [place] [phone] Oct, Bipolar I disorder, most rec ent episode (or current) mixed, moderate F31.62 [place] [address] [id number] Oct, [place] [address] [address] Oct, Hypokalemia E87.6 [place] [address] [place] [id number] [place] [address] Oct, DM neuro manif type II E11.4 9 [place] [address] [address] Oct, Bipolar I disorder, most rec ent episode (or current) mixed, moderate F31.62 [place] [address] [place] [id number] [place] [phone] Oct, Bipolar I disorder, most rec ent episode (or current) mixed, moderate F31.62 [place] [address] [place] [id number] [place] [phone] 14 Oct, 2017 Hyperkalemia E87.5 ; Falling R29.6 ; BMI 50.0-59.9, adult Z68.43 and Acute left ankle pain M25.572 [facility] [address] [place] [id number] [place] [phone] 08 Oct, 2017 DM neuro manif type II E11.4 9 [facility] [address] [place] [id number] [place] [phone] Oct, [place] [address] [place] [id number] [place] [phone] Sep, Chronic pain G89.29 [facility] [place] [address] [place] [id number] [place] [phone] Sep, [facility] [address] [address] Sep, Bilateral primary osteoarthr itis of knee M17.0 [facility] [address] [address] Sep, Generalized edema R60.1 [facility] [address] [place] [id number] [place] [phone] 16 Sep, 2017 Bipolar I disorder, most rec ent episode (or current) mixed, moderate F31.62 [facility] [address] [address] 15 Sep, 2017 Hypoxia R09.02 ; Other hyper volemia E87.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 ; Anemia of chronic illness D63.8 and BMI 50.0- 59.9, adult Z68.43 [place] [address] [place] [id number] [place] [phone] Sep, [place] [address] [address] Sep, Bipolar I disorder, most rec ent episode (or current) mixed, moderate F31.62 [place] [address] [address] Aug, Chronic pain G89.29 [facility] [address] [facility] [id number] [address] [place] [phone] Aug, Generalized edema R60.1 [facility] [address] [facility] [id number] [address] [place] [phone] Aug, [facility] [address] [facility] [id number] [address] [place] [phone] Aug, [facility] [address] [facility] [id number] [address] [place] [phone] 14 Aug, 2017 Bipolar I disorder, most rec ent episode (or current) mixed, moderate F31.62 [facility] [address] [place] [id number] [place] [phone] 07 Aug, 2017 Bipolar I disorder, most rec ent episode (or current) mixed, moderate F31.62 [place] [address] [facility] [id number] [address] [place] [phone] 04 Aug, 2017 Chronic pain G89.29 [facility] [address] [facility] [id number] [address] [place] [phone] 30 Jul, 2017 Bipolar I disorder, most rec ent episode (or current) mixed, moderate F31.62 [facility] [address] [facility] [id number] [address] [place] [phone] Jul, Bipolar I disorder, most rec ent episode (or current) mixed, moderate F31.62 and BMI 60.0-69.9, adult Z68.44 [facility] [address] [facility] [id number] [address] [place] [id number] 16 Jul, 2017 Bipolar I disorder, most rec ent episode (or current) mixed, moderate F31.62 [facility] [address] [facility] [id number] [address] [place] [phone] 06 Jul, 2017 Chronic pain G89.29 [facility] [address] [facility] [id number] [address] [place] [phone] Jul, Bipolar I disorder, most rec ent episode (or current) mixed, moderate F31.62 [facility] [address] [id number] [address] [place] [phone] Jun, Polyneuropathy associated wi th underlying disease G63 and Diabetes E11.9 [facility] [address] [facility] [id number] [address] [place] [phone] 16 Jun, 2017 Bipolar I disorder, most rec ent episode (or current) mixed, moderate F31.62 [facility] [address] [facility] [id number] [address] [place] [phone] Jun, Chronic pain G89.29 [facility] [address] [facility] [id number] [address] [place] [id number] May, Bipolar I disorder, most rec ent episode (or current) mixed, moderate F31.62 [facility] [address] [facility] [id number] [address] [place] [phone] May, Bipolar I disorder, most rec ent episode (or current) mixed, moderate F31.62 [facility] [address] [facility] [id number] [address] [place] [phone] May, Diabetic polyneuropathy asso ciated with type 2 diabetes mellitus E11.42 [facility] [address] [id number] [address] [place] [phone] 18 May, 2017 Bipolar I disorder, most rec ent episode (or current) mixed, moderate F31.62 [facility] [address] [facility] [id number] [address] [place] [phone] May, Bipolar I disorder, most rec ent episode (or current) mixed, moderate F31.62 [facility] [address] [facility] [id number] [address] [place] [phone] May, Chronic pain G89.29 [facility] [address] [facility] [id number] [address] [place] [id number] Apr, Bipolar I disorder, most rec ent episode (or current) mixed, moderate F31.62 [place] [address] [id number] [address] [place] [phone] Apr, [facility] [address] [facility] [id number] [address] [place] [phone] Apr, Chronic pain G89.29 and DM n euro manif type II E11.49 [facility] [address] [facility] [id number] [address] [place] [phone] Apr, [facility] [address] [facility] [id number] [address] [place] [phone] Apr, Bipolar I disorder, most rec ent episode (or current) mixed, moderate F31.62 [facility] [address] [facility] [id number] [address] [place] [phone] Apr, Chronic pain G89.29 [facility] [address] [place] [id number] [place] [phone] Apr, Iliotibial band syndrome, le ft M76.32 [facility] [address] [facility] [id number] [address] [place] [phone] Apr, Bipolar I disorder, most rec ent episode (or current) mixed, moderate F31.62 [facility] [address] [place] [id number] [place] [phone] Mar, Bipolar I disorder, most rec ent episode (or current) mixed, moderate F31.62 [facility] [place] [address] [place] [id number] [place] [phone] Mar, Bipolar I disorder, most rec ent episode (or current) mixed, moderate F31.62 [place] [address] [facility] [id number] [address] [place] [phone] Mar, [facility] [address] [place] [id number] [place] [phone] Mar, Bipolar I disorder, most rec ent episode (or current) mixed, moderate F31.62 [place] [address] [place] [id number] [place] [phone] Mar, Chronic pain G89.29 [facility] [address] [id number] [address] [place] [id number] Mar, Bipolar I disorder, most rec ent episode (or current) mixed, moderate F31.62 [facility] [address] [id number] [address] [place] [id number] Mar, Bipolar I disorder, most rec ent episode (or current) mixed, moderate F31.62 [facility] [address] [id number] [address] [place] [phone] Mar, Acute pain of left knee M25. 562 ; Left hip pain M25.552 ; Generalized edema R60.1 and Tongue swelling R22.0 [facility] [address] [id number] [address] [place] [phone] Mar, [facility] [address] [facility] [id number] [address] [place] [phone] Feb, Chronic pain G89.29 [facility] [address] [id number] [address] [place] [phone] Feb, Diabetes E11.9 [facility] [address] [id number] [address] [place] [phone] January, Chronic pain G89.29 [facility] [address] [id number] [address] [place] [phone] January, [facility] [address] [facility] [id number] [address] [place] [phone] January, Bipolar I disorder, most rec ent episode (or current) mixed, moderate F31.62 [facility] [address] [facility] [id number] [address] [place] [phone] Dec, Bipolar I disorder, most rec ent episode (or current) mixed, moderate F31.62 [facility] [address] [facility] [id number] [address] [place] [phone] Dec, Chronic pain G89.29 [facility] [address] [id number] [address] [place] [id number] Dec, Bipolar I disorder, most rec ent episode (or current) mixed, moderate F31.62 [facility] [address] [facility] [id number] [address] [place] [phone] Dec, Diabetes E11.9 ; Essential h ypertension I10 ; Chronic pain G89.29 and Morbid obesity E66.01 [facility] [address] [facility] [id number] [address] [place] [phone] Dec, [facility] [address] [facility] [id number] [address] [place] [phone] Dec, Bipolar I disorder, most rec ent episode (or current) mixed, moderate F31.62 [place] [address] [facility] [id number] [address] [place] [phone] Dec, Bipolar I disorder, most rec ent episode (or current) mixed, moderate F31.62 [facility] [address] [facility] [id number] [address] [place] [phone] Nov, Chronic pain G89.29 [facility] [address] [id number] [address] [place] [phone] Nov, Bipolar I disorder, most rec ent episode (or current) mixed, moderate F31.62 [facility] [address] [facility] [id number] [address] [place] [phone] Nov, [facility] [address] [facility] [id number] [address] [place] [phone] Nov, Bipolar I disorder, most rec ent episode (or current) mixed, moderate F31.62 [facility] [address] [facility] [id number] [address] [place] [phone] Nov, Bipolar I disorder, most rec ent episode (or current) mixed, moderate F31.62 [place] [address] [facility] [id number] [address] [place] [phone] Nov, [place] [address] [id number] [address] [place] [phone] Nov, [facility] [address] [id number] [address] [place] [phone] Nov, [facility] [address] [facility] [id number] [address] [place] [phone] Oct, Chronic pain G89.29 [facility] [address] [facility] [id number] [address] [place] [phone] Oct, Bipolar I disorder, most rec ent episode (or current) mixed, moderate F31.62 [facility] [address] [facility] [id number] [address] [place] [phone] Oct, [facility] [address] [facility] [id number] [address] [place] [phone] Oct, Chronic pain G89.29 ; Diabet es E11.9 ; Anxiety F41.9 and 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 [facility] [address] [facility] [id number] [address] [place] [phone] Oct, [facility] [address] [facility] [id number] [address] [place] [phone] Oct, Diabetes E11.9 [facility] [address] [facility] [id number] [address] [place] [phone] Oct, Bipolar I disorder, most rec ent episode (or current) mixed, moderate F31.62 [facility] [address] [id number] [address] [place] [phone] Sep, Chronic pain G89.29 [facility] [address] [facility] [id number] [address] [place] [phone] Sep, Chronic pain G89.29 [facility] [address] [facility] [id number] [address] [place] [id number] Aug, Chronic pain G89.29 [facility] [address] [place] [id number] [address] [place] [id number] Jul, [facility] [address] [facility] [id number] [address] [place] [phone] Jul, Diabetes E11.9 [facility] [address] [place] [id number] [address] [place] [id number] Jul, Chronic pain G89.29 [place] [address] [place] [id number] [place] [phone] Jul, Bipolar I disorder, most rec ent episode (or current) mixed, moderate F31.62 [place] [address] [place] [id number] [place] [phone] Jun, Bipolar I disorder, most rec ent episode (or current) mixed, moderate F31.62 [place] [address] [place] [id number] [address] [place] [phone] Jun, [place] [address] [place] [id number] [place] [phone] Jun, Bipolar I disorder, most rec ent episode (or current) mixed, moderate F31.62 [place] [address] [place] [id number] [place] [phone] May, Insomnia, unspecified type G 47.00 [place] [address] [place] [id number] [place] [phone] May, Bipolar I disorder, most rec ent episode (or current) mixed, moderate F31.62 [place] [address] [place] [id number] [address] [place] [phone] 14 May, 2016 [place] [address] [place] [id number] [place] [id number] 08 May, 2016 Bipolar I disorder, most rec ent episode (or current) mixed, moderate F31.62 [place] [address] [place] [id number] [place] [phone] 06 May, 2016 Diabetes E11.9 and Essential hypertension I10 [place] [address] [facility] [id number] [address] [place] [phone] Apr, Chronic pain G89.29 [place] [address] [facility] [id number] [address] [place] [phone] Apr, Bipolar I disorder, most rec ent episode (or current) mixed, moderate F31.62 [place] [address] [facility] [id number] [address] [place] [phone] Apr, [place] [address] [facility] [id number] [address] [place] [id number] Apr, [place] [address] [facility] [id number] [address] [place] [phone] Mar, Chronic pain G89.29 ; Headac he, unspecified headache type R51 ; Neuropathy G62.9 ; Pain of right hip joint M25.551 and Essential hypertension I10 [place] [address] [facility] [id number] [address] [place] [phone] Mar, Chronic pain G89.29 [place] [address] [facility] [id number] [address] [place] [id number] Mar, Bipolar I disorder, most rec ent episode (or current) mixed, moderate F31.62 [place] [address] [facility] [id number] [address] [place] [phone] Feb, Bipolar I disorder, most rec ent episode (or current) mixed, moderate F31.62 and Insomnia, unspecified type G47.00 [place] [address] [facility] [id number] [address] [place] [phone] Feb, Chronic pain G89.29 [place] [address] [facility] [id number] [address] [place] [phone] Feb, Bipolar I disorder, most rec ent episode (or current) mixed, moderate F31.62 [place] [address] [facility] [id number] [address] [place] [id number] January, Bipolar I disorder, most rec ent episode (or current) mixed, moderate F31.62 [facility] [address] [id number] [address] [place] [phone] January, Chronic pain G89.29 [facility] [address] [facility] [id number] [address] [place] [phone] January, Chronic pain G89.29 and Esse ntial hypertension I10 [facility] [address] [facility] [id number] [address] [place] [id number] January, Bipolar I disorder, most rec ent episode (or current) mixed, moderate F31.62 [facility] [address] [id number] [address] [place] [phone] Dec, [facility] [address] [facility] [id number] [address] [place] [phone] Dec, [facility] [address] [facility] [id number] [address] [place] [phone] Dec, [facility] [address] [facility] [id number] [address] [place] [phone] Dec, [facility] [address] [place] [id number] [address] [place] [phone] Nov, Reactive airway disease J45. 909 [facility] [address] [place] [id number] [address] [place] [phone] Nov, [facility] [address] [facility] [id number] [address] [place] [phone] Nov, [facility] [address] [facility] [id number] [address] [place] [phone] Nov, [facility] [address] [place] [id number] [address] [place] [phone] Nov, [facility] [address] [place] [id number] [address] [place] [phone] Nov, Onychomycosis B35.1 ; Hammer toe M20.40 ; Marcellus or callus L84 and DM neuro manif type II E11.49 [place] [address] [place] [id number] Nov, Chronic pain G89.29 ; Leukoc ytosis D72.829 and Diabetes E11.9 [facility] [address] [place] [id number] [address] [place] [phone] Nov, [place] [address] [address] Oct, Bronchitis J40 [place] [address] [place] [address] Oct, [place] [address] [address] Oct, [place] [address] [address] Oct, Mastoiditis, unspecified lat erality H70.90 and Type 2 diabetes mellitus with complication E11.8 [place] [address] [address] Sep, [place] [address] [address] Sep, Dysuria R30.0 ; Cough R05 ; Benign prostatic hyperplasia with lower urinary tract symptoms, unspecified morphology N40.1 ; Hypokalemia E87.6 and Eustachian tube dysfunction, unspecified laterality H69.80 [place] [address] [address] Sep, Moderate mixed bipolar I dis order F31.62 [place] [address] [address] Sep, Hypokalemia E87.6 [place] [address] [address] [place] [id number] [address] [place] [id number] Sep, [place] [address] [id number] Sep, Upper respiratory tract infe ction, unspecified type J06.9 [facility] [address] [id number] [address] [place] [id number] Aug, [facility] [address] [id number] [address] [place] [phone] Aug, Dysuria R30.0 [facility] [address] [id number] [address] [place] [phone] Aug, [facility] [address] [id number] [address] [place] [id number] Jul, [facility] [address] [id number] [address] [place] [id number] Jul, [facility] [address] [id number] [address] [place] [id number] Jul, [facility] [address] [id number] [address] [place] [id number] Jul, [facility] [address] [id number] [address] [place] [id number] Jun, [facility] [address] [id number] [address] [place] [phone] Jun, [facility] [address] [id number] [address] [place] [id number] Jun, [facility] [address] [id number] [address] [place] [phone] May, [facility] [address] [id number] [address] [place] [id number] May, Bipolar I disorder, most rec ent episode (or current) mixed, moderate 296.62 [facility] [address] [id number] [address] [place] [id number] 16 May, 2015 [facility] [address] [id number] [address] [place] [id number] May, Bipolar I disorder, most rec ent episode (or current) mixed, moderate 296.62 and Major depressive disorder, recurrent episode, severe, specified as with psychotic behavior 296.34 [facility] [address] [id number] [address] [place] [id number] May, Bipolar I disorder, most rec ent episode (or current) mixed, moderate 296.62 [facility] [address] [facility] [id number] [address] [place] [id number] May, [facility] [address] [id number] [address] [place] [id number] Apr, [facility] [address] [id number] [address] [place] [phone] Apr, [facility] [address] [place] [id number] [address] [place] [phone] Apr, Unspecified disorder of kidn ey and ureter 593.9 and Diabetes mellitus type 2, uncontrolled 250.02 [facility] [address] [facility] [id number] [address] [place] [phone] Apr, [facility] [address] [id number] [address] [place] [phone] Apr, [facility] [address] [facility] [id number] [address] [place] [phone] Apr, [facility] [address] [facility] [id number] [address] [place] [phone] Apr, [facility] [address] [facility] [id number] [address] [place] [phone] Apr, Diabetes mellitus type II, u ncontrolled 250.02 [facility] [address] [facility] [id number] [address] [place] [phone] Apr, [facility] [address] [facility] [id number] [address] [place] [phone] Mar, [facility] [address] [facility] [id number] [address] [place] [phone] Mar, [facility] [address] [facility] [id number] [address] [place] [phone] Mar, [facility] [address] [place] [id number] [address] [place] [phone] Mar, Major depressive disorder, r ecurrent episode, severe, specified as with psychotic behavior 296.34 and Bipolar I disorder, most recent episode (or current) mixed, moderate 296.62 [facility] [address] [place] [id number] [address] [place] [phone] Mar, Diabetes 250.00 ; Anuria 788 .5 ; Nausea and vomiting 787.01 and Diarrhea 787.91 [facility] [address] [place] [id number] [address] [place] [phone] Mar, Diabetes 250.00 [facility] [address] [place] [id number] [address] [place] [phone] Mar, [facility] [address] [place] [id number] [address] [place] [phone] Mar, Diabetes 250.00 [facility] [address] [facility] [id number] [address] [place] [phone] Mar, [facility] [address] [place] [id number] [address] [place] [phone] Mar, [facility] [address] [place] [id number] [address] [place] [phone] Mar, [facility] [address] [place] [id number] [address] [place] [phone] Mar, [facility] [address] [place] [id number] [address] [place] [phone] Mar, Bipolar I disorder, most rec ent episode (or current) mixed, moderate 296.62 and Major depressive disorder, recurrent episode, severe, specified as with psychotic behavior 296.34 [facility] [address] [place] [id number] [address] [place] [phone] Mar, Magnesium deficiency 275.2 ; Hypokalemia 276.8 ; Nausea & vomiting 787.01 and Diabetes mellitus type 2, uncontrolled 250.02 [place] [address] [id number] Feb, [place] [address] [address] Feb, Bipolar I disorder, most rec ent episode (or current) mixed, moderate 296.[address] [address] Feb, Nausea and vomiting 787.01 ; Left elbow pain 719.42 ; Anuria 788.5 and Diabetes 250.[address] [address] Feb, [address] [address] Feb, Hypopotassemia 276.8 and Hyp okalemia 276.[address] [address] Feb, Hypopotassemia 276.8 and Hyp okalemia 276.[address] [address] Feb, Seborrheic keratoses 702.[address] [address] Feb, Hypopotassemia 276.8 and Low magnesium levels 275.2 [place] [address] [address] January, [place] [address] [address] January, [facility] [address] [address] January, [place] [address] [address] January, Scalp lesion 709.9 [facility] [address] [id number] [address] [place] [phone] January, [facility] [address] [id number] [address] [place] [phone] Dec, Tear of medial cartilage or meniscus of knee, current 836.0 and 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 [facility] [address] [id number] [address] [place] [phone] Dec, [facility] [address] [id number] [address] [place] [phone] Dec, [facility] [address] [id number] [address] [place] [phone] Dec, Squamous cell carcinoma, 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 [facility] [address] [id number] [address] [place] [phone] Dec, [facility] [address] [id number] [address] [place] [phone] Dec, [facility] [address] [id number] [address] [place] [phone] Nov, [facility] [address] [id number] [address] [place] [phone] Nov, [facility] [address] [id number] [address] [place] [phone] Nov, [facility] [address] [id number] [address] [place] [phone] Nov, [facility] [address] [id number] [address] [place] [phone] Nov, [facility] [address] [id number] [address] [place] [phone] Nov, [facility] [address] [id number] [address] [place] [phone] Nov, [facility] [address] [id number] [address] [place] [address], [place] [address] Nov, 2014 [facility] [address] [id number] [address] [place] [address], [place] [address] Nov, 2014 [facility] [address] [id number] [address] [place] [address], [place] [address] Nov, 2014 [facility] [address] [id number] [address] [place] [address], [place] [address] Nov, 2014 [facility] [address] [id number] [address] [place] [address], [place] [address] Nov, [facility] [address] [id number] [address] [place] [address], [place] [address] Oct, 2014 [facility] [address] [id number] [address] [place] [address], [place] [address] Oct, 2014 [facility] [address] [id number] [address] [place] [address], [place] [address] Oct, 2014 [facility] [address] [id number] [address] [place] [address], [place] [address] Oct, 2014 [facility] [address] [id number] [address] [place] [address], [place] [address] Oct, 2014 [facility] [address] [id number] [address] [place] [address], [place] [address] Oct, 2014 [facility] [address] [id number] [address] [place] [address], [place] [address] Oct, 2014 [facility] [address] [id number] [address] [place] [address], [place] [address] Oct, 2014 [facility] [address] [id number] [address] [place] [address], [place] [address] Oct, 2014 [facility] [address] [id number] [address] [place] [address], [place] [address] Sep, [facility] [address] [id number] [address] [place] [phone] Sep, [facility] [address] [id number] [address] [place] [address], [place] [address] Sep, [facility] [address] [id number] [address] [place] [address], [place] [address] Sep, [facility] [address] [id number] [address] [place] [address], [place] [address] Sep, [facility] [address] [id number] [address] [place] [address], [place] [address] Sep, [facility] [address] [id number] [address] [place] [address], [place] [address] Sep, [facility] [address] [id number] [address] [place] [address], [place] [address] Sep, [facility] [address] [id number] [address] [place] [address], [place] [address] Sep, [facility] [address] [id number] [address] [place] [address], [place] [address] Sep, [facility] [address] [id number] [address] [place] [address], [place] [address] Sep, [facility] [address] [id number] [address] [place] [address], [place] [address] Sep, [facility] [address] [id number] [address] [place] [address], [place] [address] Sep, [facility] [address] [id number] [address] [place] [address], [place] [address] Sep, [facility] [address] [id number] [address] [place] [address], [place] [address] Sep, [facility] [address] [id number] [address] [place] [address], [place] [address] Sep, [facility] [address] [id number] [address] [place] [address], [place] [address] Aug, [facility] [address] [id number] [facility] [address] Aug, [facility] [address] [id number] [facility] [address] Aug, [facility] [address] [id number] [facility] [address] Aug, [facility] [address] [id number] [facility] [address] Aug, [facility] [address] [id number] [address] [place] [address], [place] [address] Aug, [facility] [address] [id number] [address] [place] [address], [place] [address] Aug, [facility] [address] [id number] [address] [place] [address], [place] [address] Aug, [facility] [address] [id number] [address] [place] [address], [place] [address] Aug, [facility] [address] [id number] [address] [place] [address], [place] [address] Aug, [facility] [address] [id number] [address] [place] [address], [place] [address] Aug, [facility] [address] [place] [id number] Aug, [facility] [address] [id number] [address] [place] [address], [place] [address] Aug, [facility] [address] [id number] [address] [place] [address], [place] [address] Aug, [facility] [address] [id number] [address] [place] [address], [place] [address] Aug, [facility] [address] [id number] [address] [place] [address], [place] [address] Aug, [facility] [address] [id number] [address] [place] [address], [place] [address] Aug, [facility] [address] [id number] [address] [place] [address], [place] [address] Aug, [facility] [address] [id number] [address] [place] [address], [place] [address] Aug, [facility] [address] [id number] [address] [place] [address], [place] [address] Aug, [facility] [address] [id number] [address] [place] [address], [place] [address] Aug, [facility] [address] [id number] [address] [place] [address], [place] [address] Aug, [facility] [address] [id number] [address] [place] [address], [place] [address] Aug, [facility] [address] [id number] [address] [place] [address], [place] [address] Aug, [facility] [address] [id number] [address] [place] [address], [place] [address] Aug, [facility] [address] [id number] [address] [place] [address], [place] [address] Aug, [facility] [address] [id number] [address] [place] [address], [place] [address] Aug, [facility] [address] [id number] [address] [place] [address], [place] [address] Aug, [facility] [address] [id number] [address] [place] [address], [place] [address] Aug, [facility] [address] [id number] [address] [place] [address], [place] [address] Aug, [facility] [address] [id number] [address] [place] [address], [place] [address] Jul, [facility] [address] [id number] [address] [place] [address], [place] [address] Jul, [facility] [address] [id number] [place] [address] Jul, [facility] [address] [id number] [address] [place] [address], [place] [address] Jul, [facility] [address] [id number] [address] [place] [address], [place] [address] Jul, [facility] [address] [id number] [address] [place] [address], [place] [address] Jul, [facility] [address] [id number] [address] [place] [phone] Jul, [facility] [address] [id number] [address] [place] [address], [place] [address] Jul, [facility] [address] [id number] [address] [place] [address], [place] [address] Jul, [facility] [address] [id number] [address] [place] [address], [place] [address] Jul, [facility] [address] [id number] [address] [place] [address], [place] [address] Jun, [facility] [address] [id number] [address] [place] [address], [place] [address] Jun, [facility] [address] [id number] [address] [place] [id number] Jun, [facility] [address] [id number] [address] [place] [id number] Jun, [facility] [address] [id number] [address] [place] [id number] Jun, [facility] [address] [id number] [address] [place] [address], [place] [address] Jun, [facility] [address] [id number] [address] [place] [id number] Jun, [facility] [address] [id number] [address] [place] [id number] Jun, [facility] [address] [id number] [address] [place] [address], [place] [address] Jun, [facility] [address] [id number] [address] [place] [address], [place] [address] Jun, [facility] [address] [id number] [address] [place] [address], [place] [address] 29 May, 2013 [facility] [address] [id number] [address] [place] [address], [place] [address] 29 May, 2013 [facility] [address] [id number] [address] [place] [address], [place] [address] 26 May, 2013 [facility] [address] [id number] [address] [place] [address], [place] [address] 26 May, 2013 [facility] [address] [id number] [address] [place] [address], [place] [address] 17 May, 2013 [facility] [address] [id number] [address] [place] [address], [place] [address] 17 May, 2013 [facility] [address] [id number] [address] [place] [address], [place] [address] 15 May, 2013 [facility] [address] [id number] [address] [place] [address], [place] [address] 15 May, 2013 [facility] [address] [id number] [address] [place] [address], [place] [address] 15 May, 2013 [facility] [address] [id number] [address] [place] [address], [place] [address] 15 May, 2013 [facility] [address] [id number] [address] [place] [address], [place] [address] 10 May, 2013 [facility] [address] [id number] [address] [place] [address], [place] [address] 10 May, 2013 [facility] [address] [id number] [address] [place] [address], [place] [address] 09 May, 2013 [facility] [address] [id number] [address] [place] [address], [place] [address] May, [facility] [address] [id number] [facility] [address] May, [facility] [address] [id number] [address] [place] [address], [place] [address] May, [facility] [address] [id number] [address] [place] [address], [place] [address] Apr, [facility] [address] [id number] [address] [place] [address], [place] [address] Apr, [facility] [address] [id number] [address] [place] [address], [place] [address] Apr, [facility] [address] [id number] [address] [place] [address], [place] [address] Apr, [facility] [address] [id number] [address] [place] [address], [place] [address] Apr, [facility] [address] [id number] [address] [place] [address], [place] [address] Apr, [facility] [address] [id number] [address] [place] [address], [place] [address] Apr, [facility] [address] [id number] [address] [place] [address], [place] [address] Apr, [facility] [address] [id number] [address] [place] [address], [place] [address] Apr, [facility] [address] [id number] [address] [place] [address], [place] [address] Apr, [facility] [address] [id number] [address] [place] [address], [place] [address] Apr, [facility] [address] [id number] [address] [place] [address], [place] [address] Apr, [facility] [address] [id number] [address] [place] [address], [place] [address] Apr, [facility] [address] [id number] [address] [place] [address], [place] [address] Apr, [facility] [address] [id number] [address] [place] [address], [place] [address] Apr, [facility] [address] [id number] [address] [place] [address], [place] [address] Mar, [facility] [address] [id number] [address] [place] [address], [place] [address] Mar, [facility] [address] [id number] [address] [place] [address], [place] [address] Mar, [facility] [address] [id number] [address] [place] [address], [place] [address] Mar, [facility] [address] [id number] [address] [place] [address], [place] [address] Mar, [facility] [address] [id number] [address] [place] [address], [place] [address] Mar, [facility] [address] [id number] [address] [place] [address], [place] [address] Mar, [facility] [address] [id number] [address] [place] [address], [place] [address] Mar, [facility] [address] [id number] [address] [place] [address], [place] [address] Mar, [facility] [address] [id number] [address] [place] [address], [place] [address] Mar, [facility] [address] [id number] [address] [place] [address], [place] [address] Mar, [facility] [address] [id number] [address] [place] [address], [place] [address] Mar, [facility] [address] [id number] [address] [place] [address], [place] [address] Mar, [facility] [address] [id number] [address] [place] [address], [place] [address] Mar, [facility] [address] [id number] [facility] [address] Mar, [facility] [address] [id number] [facility] [address] Mar, [facility] [address] [id number] [facility] [address] Mar, [facility] [address] [id number] [facility] [place] [address] Mar, [facility] [address] [id number] [facility] [address] Feb, [facility] [address] [id number] [facility] [place] [address] Feb, [facility] [address] [id number] [address] [place] [address], [place] [address] Feb, [facility] [address] [id number] [address] [place] [address], [place] [address] Feb, [facility] [address] [id number] [address] [place] [address], [place] [address] Feb, [facility] [address] [id number] [address] [place] [address], [place] [address] Feb, [facility] [address] [id number] [address] [place] [address], [place] [address] Feb, [facility] [address] [id number] [address] [place] [address], [place] [address] Feb, [facility] [address] [id number] [address] [place] [address], [place] [address] Feb, [facility] [address] [id number] [address] [place] [address], [place] [address] Feb, [facility] [address] [id number] [address] [place] [address], [place] [address] Feb, [facility] [address] [id number] [address] [place] [address], [place] [address] Feb, [facility] [address] [id number] [facility] [address] Feb, [facility] [address] [id number] [facility] [address] Feb, [facility] [address] [id number] [facility] [address] January, [facility] [address] [id number] [facility] [address] January, [facility] [address] [id number] [facility] [address] January, [facility] [address] [id number] [address] [place] [address], [place] [address] January, [facility] [address] [id number] [facility] [address] January, [facility] [address] [id number] [address] [place] [address], [place] [address] January, [facility] [address] [id number] [address] [place] [address], [place] [address] January, [facility] [address] [id number] [address] [place] [address], [place] [address] January, [facility] [address] [id number] [address] [place] [address], [place] [address] January, [facility] [address] [id number] [address] [place] [address], [place] [address] January, [facility] [address] [id number] [facility] [address] January, [facility] [address] [id number] [address] [place] [address], [place] [address] January, [facility] [address] [id number] [facility] [address] January, [facility] [address] [id number] [facility] [address] January, [facility] [address] [id number] [address] [place] [address], [place] [address] Dec, [facility] [address] [id number] [address] [place] [address], [place] [address] Dec, [facility] [address] [id number] [address] [place] [address], [place] [address] Dec, [facility] [address] [id number] [address] [place] [address], [place] [address] Dec, [facility] [address] [id number] [address] [place] [address], [place] [address] Dec, [facility] [address] [id number] [address] [place] [address], [place] [address] Dec, [facility] [address] [id number] [address] [place] [address], [place] [address] Dec, [facility] [address] [id number] [address] [place] [address], [place] [address] Dec, [facility] [address] [id number] [address] [place] [address], [place] [address] Dec, [facility] [address] [id number] [address] [place] [address], [place] [address] Dec, [facility] [address] [id number] [address] [place] [address], [place] [address] Nov, [facility] [address] [id number] [address] [place] [address], [place] [address] Nov, [facility] [address] [id number] [address] [place] [address], [place] [address] Nov, [facility] [address] [id number] [address] [place] [address], [place] [address] Nov, [facility] [address] [id number] [address] [place] [address], [place] [address] Nov, [facility] [place] [facility] [address] [id number] [facility] [address] Nov, [facility] [place] [facility] [address] [id number] [facility] [address] Nov, [facility] [place] [facility] [address] [id number] [facility] [address] Nov, [facility] [place] [facility] [address] [id number] [address] [place] [address], [place] [address] Nov, [facility] [place] [facility] [address] [id number] [address] [place] [address], [place] [address] Nov, [facility] [place] [facility] [address] [id number] [address] [place] [address], [place] [address] Oct, [facility] [place] [facility] [address] [id number] [address] [place] [address], [place] [address] Oct, [facility] [place] [facility] [address] [id number] [address] [place] [address], [place] [address] Oct, [facility] [place] [facility] [address] [id number] [address] [place] [address], [place] [address] Oct, [facility] [place] [facility] [address] [id number] [address] [place] [address], [place] [address] Oct, [facility] [place] [facility] [address] [id number] [address] [place] [address], [place] [address] Oct, [facility] [place] [facility] [address] [id number] [address] [place] [address], [place] [address] 14 Oct, 2013 [facility] [place] [facility] [address] [id number] [address] [place] [address], [place] [address] Oct, [facility] [place] [facility] [address] [id number] [address] [place] [address], [place] [address] 05 Oct, 2013 [facility] [place] [facility] [address] [id number] [address] [place] [address], [place] [address] Oct, [facility] [place] [facility] [address] [id number] [address] [address] 04 Oct, 2013 [facility] [address] [id number] [address] [place] [address], [place] [address] Oct, [facility] [address] [id number] [address] [place] [address], [place] [address] Oct, [facility] [address] [id number] [address] [place] [address], [place] [address] Oct, [facility] [address] [id number] [address] [place] [address], [place] [address] Sep, [facility] [address] [id number] [address] [place] [address], [place] [address] Sep, [facility] [address] [id number] [address] [place] [address], [place] [address] Sep, [facility] [address] [id number] [address] [place] [address], [place] [address] Sep, [facility] [address] [id number] [address] [place] [address], [place] [address] Sep, [facility] [address] [id number] [address] [place] [address], [place] [address] Sep, [facility] [address] [id number] [address] [place] [address], [place] [address] Sep, [facility] [address] [id number] [address] [place] [address], [place] [address] Sep, [facility] [address] [id number] [address] [place] [address], [place] [address] Sep, [facility] [address] [id number] [address] [place] [address], [place] [address] Sep, [facility] [address] [id number] [address] [place] [address], [place] [address] Aug, [facility] [address] [id number] [address] [place] [address], [place] [address] Aug, [facility] [address] [id number] [address] [place] [address], [place] [address] Jul, [facility] [address] [id number] [address] [place] [address], [place] [address] Jul, [facility] [address] [id number] [address] [place] [address], [place] [address] Jul, [facility] [address] [id number] [address] [place] [address], [place] [address] Jul, [facility] [address] [id number] [address] [place] [address], [place] [address] Jul, [facility] [address] [id number] [address] [place] [address], [place] [address] Jul, [facility] [address] [id number] [address] [place] [address], [place] [address] Jul, [facility] [address] [id number] [address] [place] [address], [place] [address] Jul, [facility] [address] [id number] [address] [place] [address], [place] [address] Jul, [facility] [address] [id number] [address] [place] [address], [place] [address] Jul, [facility] [address] [id number] [address] [place] [address], [place] [address] Jul, [facility] [address] [id number] [address] [place] [address], [place] [address] Jul, [facility] [address] [id number] [address] [place] [address], [place] [address] Jul, [facility] [place] [facility] [address] [id number] [address] [place] [address], [place] [address] Jul, [facility] [place] [facility] [address] [id number] [address] [place] [address], [place] [address] Jul, [facility] [address] [id number] [address] [place] [id number] Jul, 2012 [facility] [address] [id number] [address] [place] [address], [place] [address] Jul, 2012 [facility] [address] [id number] [address] [place] [id number] Jul, [facility] [address] [id number] [address] [place] [address], [place] [address] Jul, [facility] [address] [id number] [address] [place] [address], [place] [address] Jun, 2012 [facility] [address] [id number] [address] [place] [address], [place] [address] Jun, 2012 [facility] [address] [id number] [address] [place] [address], [place] [address] Jun, 2012 [facility] [address] [id number] [address] [place] [id number] Jun, 2012 [facility] [address] [id number] [address] [place] [id number] Jun, 2012 [facility] [address] [id number] [address] [place] [id number] Jun, 2012 [facility] [address] [id number] [address] [place] [phone] Jun, [facility] [address] [id number] [address] [place] [phone] Jun, 2012 [facility] [address] [id number] [address] [place] [phone] Jun, [facility] [address] [id number] [address] [place] [phone] Jun, [facility] [address] [id number] [address] [place] [phone] Jun, [facility] [address] [id number] [address] [place] [phone] May, [facility] [address] [id number] [facility] [address] 25 May, 2012 [facility] [address] [id number] [address] [place] [address], [place] [address] 19 May, 2012 [facility] [address] [id number] [address] [place] [address], [place] [address] 17 May, 2012 [facility] [address] [id number] [address] [place] [address], [place] [address] 11 May, 2012 [facility] [address] [id number] [address] [place] [address], [place] [address] 10 May, 2012 [facility] [address] [id number] [address] [place] [address], [place] [address] 09 May, 2012 [facility] [address] [id number] [address] [place] [address], [place] [address] 05 May, 2013 [facility] [address] [id number] [address] [place] [address], [place] [address] Apr, [facility] [address] [id number] [address] [place] [address], [place] [address] Apr, [facility] [address] [id number] [address] [place] [address], [place] [address] Apr, [facility] [address] [id number] [address] [place] [address], [place] [address] Apr, [facility] [address] [id number] [address] [place] [address], [place] [address] Apr, [facility] [address] [id number] [address] [place] [address], [place] [address] Mar, [facility] [address] [id number] [address] [place] [address], [place] [address] Mar, [facility] [address] [id number] [address] [place] [address], [place] [address] Mar, [facility] [address] [id number] [address] [place] [address], [place] [address] Mar, [facility] [address] [id number] [address] [place] [address], [place] [address] Mar, [facility] [address] [id number] [address] [place] [address], [place] [address] Mar, [facility] [address] [id number] [address] [place] [address], [place] [address] Mar, [facility] [address] [id number] [address] [place] [address], [place] [address] Mar, [facility] [address] [id number] [address] [place] [address], [place] [address] Feb, [facility] [address] [id number] [address] [place] [address], [place] [address] Feb, [facility] [address] [id number] [address] [place] [address], [place] [address] January, [facility] [address] [id number] [address] [place] [address], [place] [address] January, [facility] [address] [id number] [address] [place] [address], [place] [address] Dec, [facility] [address] [id number] [address] [place] [address], [place] [address] Dec, [facility] [address] [id number] [address] [place] [address], [place] [address] Nov, [facility] [address] [id number] [address] [place] [address], [place] [address] Nov, [facility] [address] [id number] [address] [place] [address], [place] [address] Nov, [facility] [address] [id number] [address] [place] [address], [place] [address] Nov, [facility] [address] [id number] [address] [place] [address], [place] [address] Oct, [facility] [address] [id number] [address] [place] [address], [place] [address] Oct, [facility] [address] [id number] [address] [place] [address], [place] [address] Oct, [facility] [address] [id number] [address] [place] [address], [place] [address] 26 Oct, 2012 [facility] [address] [id number] [address] [place] [address], [place] [address] 16 Oct, 2012 [facility] [address] [id number] [address] [place] [address], [place] [address] 14 Oct, 2012 [facility] [address] [id number] [address] [place] [address], [place] [address] 08 Oct, 2012 [facility] [address] [id number] [address] [place] [address], [place] [address] 07 Oct, 2012 [facility] [address] [id number] [address] [place] [address], [place] [address] 03 Oct, 2012 [facility] [address] [id number] [address] [place] [address], [place] [address] Sep, [facility] [address] [id number] [address] [place] [address], [place] [address] Sep, [facility] [address] [id number] [address] [place] [address], [place] [address] Sep, [facility] [address] [id number] [address] [place] [address], [place] [address] Sep, [facility] [address] [id number] [address] [place] [address], [place] [address] Sep, [facility] [address] [id number] [address] [place] [address], [place] [address] Sep, [facility] [address] [id number] [address] [place] [address], [place] [address] Sep, [facility] [address] [id number] [address] [place] [address], [place] [address] Sep, [facility] [address] [id number] [address] [place] [address], [place] [address] Aug, [facility] [address] [id number] [address] [place] [address], [place] [address] Aug, [facility] [address] [id number] [address] [place] [address], [place] [address] Aug, [facility] [address] [id number] [address] [place] [address], [place] [address] Aug, [facility] [address] [id number] [address] [place] [address], [place] [address] Aug, [facility] [address] [id number] [address] [place] [address], [place] [address] Aug, [facility] [address] [id number] [address] [place] [address], [place] [address] Aug, [facility] [address] [id number] [address] [place] [address], [place] [address] Aug, [facility] [address] [id number] [address] [place] [address], [place] [address] Jul, [facility] [address] [id number] [address] [place] [address], [place] [address] Jul, [facility] [address] [id number] [address] [place] [address], [place] [address] Jul, [facility] [address] [id number] [address] [place] [address], [place] [address] Jul, [facility] [place] [address] [id number] [address] [place] [address], [place] [address] Jul, [facility] [place] [address] [id number] [address] [place] [address], [place] [address] Jul, [facility] [place] [facility] [address] [id number] [address] [place] [address], [place] [address] Jun, [facility] [address] [id number] [address] [place] [address], [place] [address] 25 Jun, 2012 [facility] [address] [id number] [address] [place] [address], [place] [address] Jun, [facility] [address] [id number] [address] [place] [address], [place] [address] Jun, [facility] [address] [id number] [address] [place] [address], [place] [address] Jun, [facility] [address] [id number] [address] [place] [address], [place] [address] Jun, [facility] [address] [id number] [address] [place] [address], [place] [address] 19 Jun, 2012 [facility] [address] [id number] [address] [place] [address], [place] [address] 10 Jun, 2012 [facility] [address] [id number] [address] [place] [address], [place] [address] 10 Jun, 2012 [facility] [address] [id number] [address] [place] [address], [place] [address] 26 May, 2012 [facility] [address] [id number] [address] [place] [address], [place] [address] 24 May, 2012 [facility] [address] [id number] [address] [place] [address], [place] [address] 18 May, 2012 [facility] [address] [id number] [address] [place] [address], [place] [address] 30 Apr, 2012 [facility] [address] [id number] [address] [place] [address], [place] [address] 29 Apr, 2012 [facility] [address] [id number] [address] [place] [address], [place] [address] 18 Apr, 2012 [facility] [address] [id number] [address] [place] [address], [place] [address] 14 Apr, 2012 [facility] [address] [id number] [address] [place] [address], [place] [address] Apr, [facility] [address] [id number] [address] [place] [address], [place] [address] Apr, [facility] [address] [id number] [address] [place] [address], [place] [address] Mar, [facility] [address] [id number] [address] [place] [address], [place] [address] Mar, [facility] [address] [id number] [address] [place] [address], [place] [address] Mar, [facility] [address] [id number] [address] [place] [address], [place] [address] Mar, [facility] [address] [id number] [address] [place] [address], [place] [address] Feb, [facility] [address] [id number] [address] [place] [address], [place] [address] Feb, [facility] [address] [id number] [address] [place] [address], [place] [address] Feb, [facility] [address] [id number] [address] [place] [address], [place] [address] Feb, [facility] [address] [id number] [address] [place] [address], [place] [address] Feb, [facility] [address] [id number] [address] [place] [address], [place] [address] January, [facility] [address] [id number] [address] [place] [address], [place] [address] January, [facility] [address] [id number] [address] [place] [address], [place] [address] January, [facility] [address] [id number] [address] [place] [address], [place] [address] January, [facility] [address] [id number] [address] [place] [address], [place] [address] January, [facility] [address] [id number] [address] [place] [address], [place] [address] January, [facility] [address] [id number] [address] [place] [address], [place] [address] Dec, [facility] [address] [id number] [address] [place] [address], [place] [address] 24 Dec, 2011 [facility] [address] [id number] [address] [place] [address], [place] [address] 17 Dec, 2011 [facility] [address] [id number] [address] [place] [address], [place] [address] Dec, [facility] [address] [id number] [address] [place] [address], [place] [address] Dec, [facility] [address] [id number] [address] [place] [address], [place] [address] 27 Nov, 2011 [facility] [address] [id number] [address] [place] [address], [place] [address] 14 Nov, 2011 [facility] [address] [id number] [address] [place] [address], [place] [address] Nov, [facility] [address] [id number] [address] [place] [address], [place] [address] 07 Nov, 2011 [facility] [address] [id number] [address] [place] [address], [place] [address] 29 Oct, 2011 [facility] [address] [id number] [address] [place] [address], [place] [address] Oct, [facility] [address] [id number] [address] [place] [address], [place] [address] 24 Oct, 2011 [facility] [address] [id number] [address] [place] [address], [place] [address] 13 Oct, 2011 [facility] [address] [id number] [address] [place] [address], [place] [address] 08 Oct, 2011 [facility] [address] [id number] [address] [place] [address], [place] [address] Sep, [facility] [address] [id number] [address] [place] [address], [place] [address] Sep, [facility] [address] [id number] [address] [place] [address], [place] [address] Sep, [facility] [address] [id number] [address] [place] [address], [place] [address] Sep, [facility] [address] [id number] [address] [place] [address], [place] [address] Sep, [facility] [address] [id number] [address] [place] [address], [place] [address] Sep, [facility] [address] [id number] [address] [place] [address], [place] [address] Aug, [facility] [address] [id number] [address] [place] [address], [place] [address] Aug, [facility] [address] [id number] [address] [place] [address], [place] [address] Aug, [facility] [address] [id number] [address] [place] [address], [place] [address] Jul, [facility] [address] [id number] [address] [place] [address], [place] [address] Jul, [facility] [address] [id number] [address] [place] [address], [place] [address] Jul, [facility] [address] [id number] [address] [place] [address], [place] [address] Jul, [facility] [address] [id number] [address] [place] [address], [place] [address] Jun, [facility] [address] [id number] [address] [place] [address], [place] [address] Jun, [facility] [address] [id number] [address] [place] [address], [place] [address] Jun, [facility] [address] [id number] [address] [place] [address], [place] [address] 10 Jun, 2011 [facility] [address] [id number] [address] [place] [address], [place] [address] 10 Jun, 2011 [facility] [address] [id number] [address] [place] [address], [place] [address] 10 Jun, 2011 [facility] [address] [id number] [address] [place] [address], [place] [address] 11 Mar, 2011 [facility] [address] [id number] [address] [place] [address], [place] [address] 18 Dec, 2010 [facility] [address] [id number] [address] [place] [address], [place] [address] 11 Dec, 2010 [facility] [address] [id number] [address] [place] [address], [place] [address] 18 Nov, 2010 [facility] [address] [id number] [address] [place] [address], [place] [address] 16 Nov, 2010 [facility] [address] [id number] [address] [place] [address], [place] [address] 10 Sep, 2010 [facility] [address] [id number] [address] [place] [address], [place] [address] 31 Aug, 2010 [facility] [address] [id number] [address] [place] [address], [place] [address] 29 Aug, 2010 [facility] [address] [id number] [address] [place] [address], [place] [address] 29 Aug, 2010 [facility] [address] [id number] [address] [place] [address], [place] [address] 29 Aug, 2010 [facility] [address] [id number] [address] [place] [address], [place] [address] 27 Aug, 2010 [facility] [address] [id number] [address] [place] [address], [place] [address] 14 Aug, 2010 [facility] [address] [id number] [address] [place] [address], [place] [address] 08 Aug, 2010 [facility] [address] [id number] [address] [place] [address], [place] [address] 08 Aug, 2010 [facility] [address] [id number] [address] [place] [address], [place] [address] Aug, [facility] [address] [id number] [address] [place] [address], [place] [address] Aug, [facility] [address] [id number] [address] [place] [address], [place] [address] Aug, [facility] [address] [id number] [address] [place] [address], [place] [address] Aug, [facility] [address] [id number] [address] [place] [address], [place] [address] Jul, [facility] [address] [id number] [address] [place] [address], [place] [address] Jul, [facility] [address] [id number] [address] [place] [address], [place] [address] Jul, [facility] [address] [id number] [address] [place] [address], [place] [address] Jul, [facility] [address] [id number] [address] [place] [address], [place] [address] Jul, [facility] [address] [id number] [address] [place] [address], [place] [address] Jul, [facility] [address] [id number] [address] [place] [address], [place] [address] 24 Jun, 2010 [facility] [address] [id number] [address] [place] [address], [place] [address] Jun, [facility] [address] [id number] [address] [place] [address], [place] [address] Jun, [facility] [address] [id number] [address] [place] [address], [place] [address] Jun, [facility] [address] [id number] [address] [place] [id number] 16 Apr, 2010 [facility] [address] [id number] [address] [place] [id number] 20 Mar, 2010 [facility] [address] [id number] [address] [place] [id number] 17 Feb, 2010 [facility] [address] [id number] [address] [place] [phone] January, [facility] [address] [id number] [address] [place] [address], [place] [address] 15 Dec, 2009 [facility] [address] [id number] [address] [place] [address], [place] [address] Nov, [facility] [address] [id number] [address] [place] [phone] Aug, [facility] [address] [id number] [address] [place] [phone] Aug, [facility] [address] [id number] [address] [place] [phone] Aug, [facility] [address] [id number] [address] [place] [id number] Jul, [facility] [address] [id number] [address] [place] [id number] Jul, [facility] [address] [id number] [address] [place] [phone] Jul, [facility] [address] [id number] [address] [place] [id number] 30 Jun, 2009 [facility] [address] [id number] [address] [place] [phone] 29 Jun, 2009 [facility] [address] [id number] [address] [place] [phone] Jun, [facility] [address] [id number] [address] [place] [phone] Jun, [facility] [address] [id number] [address] [place] [phone] Jun, [facility] [address] [facility] [id number] [address] [place] [phone] Jun, [facility] [address] [facility] [id number] [address] [place] [phone] Apr, [facility] [address] [facility] [id number] [address] [place] [phone] Apr, [facility] [address] [facility] [id number] [address] [place] [phone] Feb, [facility] [address] [facility] [id number] [address] [place] [phone] January, [facility] [address] [facility] [id number] [address] [place] [phone] Dec, IMMUNIZATIONS No Known Immunizations SOCIAL HISTORY [...] to urinate 09/16/15 Hospitalization History [facility] e[facility]ly 1999' Hospitalization History hyperkalemia 10/2017 Hospitalization History fluid in lung
--- OUTSIDE RECORDS SUMMARY | 2020-03-01 17:51 | XMS REPORT ---
Author Author Michele WASHBURN Organization [facility] Address [address] [place] [address] Care Team Providers [employer] Name Role Phone NOEMI WASHBURN Unavailable PROBLEMS Type Condition ICD9-CM Code QDE41-IW Code Onset Dates Condition S tatus SNOMED Code Problem Leukocytosis D72.829 Active 8584330 06 Problem Bipolar I disorder, most recent episode (or curr ent) mixed, moderate F31.62 Active 08659085 Problem Reactive airway disease J45.909 Active 520811084328 Problem Anxiety F41.9 Active 39821984 Problem Insomnia, unspecified type G47.00 Act sharon 584059335 Problem Essential hypertension I10 Active 71501118 Problem Morbid obesity E66.01 Active 53772 6002 Problem Skin cancer C44.90 Active 12334006 7 Problem DM neuro manif type II E11.49 Active 71098527 Problem Mild cognitive impairment G31.84 Acti ve 335686343 Problem Benign prostatic hyperplasia with lower urinary tract symptoms, unspecified morphology N40.1 Active 45301 6007 Problem Chronic pain G89.29 Active 8654476 1 Problem Diabetes E11.9 Active 24210556 Problem Retinal edema H35.81 Active 688469 6 Problem Anemia of chronic illness D63.8 Acti ve 162845197 Problem Falling R29.6 Active 357185526 Problem Pressure ulcer of other site, stage 3 L89.893 Active 586047607 Problem 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 Active 955705716 Problem Eye exam abnormal R93.8 Active 16 6365450 Problem Pure hypercholesterolemia E78.00 Acti ve 214368324 Problem Dysuria R30.0 Active 87131315 Problem Bipolar disorder, in partial remission, most rec ent episode depressed F31.75 Active 78194592 Problem Hypokalemia E87.6 Active 10115858 Problem Other iron deficiency anemia D50.8 A ctive 23681432 Problem Eustachian tube dysfunction, unspecified laterality H69.80 Active 59961321 Problem Primary osteoarthritis of right knee M17.11 Active 716794792484059 Problem Cough R05 Active 96992030 Problem Bipolar disorder F31.9 Active 137 07293 Problem Chronic diastolic (congestive) heart failure I50.3 2 Active 493740038 Problem Psychophysiological insomnia F51.04 A ctive 419898887 Problem Gastroesophageal reflux disease without esophagitis K21.9 Active 905311616 Problem Polyneuropathy associated with underlying disease G63 Active 433574390 Problem Other secondary acute gout, 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 0 Active 433623014 Problem Diabetic polyneuropathy associated with type 2 d iabetes mellitus E11.42 Active 85235435 Problem Chronic lymphocytic leukemia C91.10 A ctive 65058001 Problem Bilateral primary osteoarthritis of knee M17.0 Active 046054413 Problem Type 2 diabetes mellitus with diabetic neuropathy, uns pecified E11.40 Active 72386604 Problem skilled nursing (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 Z79.4 Active 568947374 Problem Lymphocytosis D72.820 Active 285640 09 Problem Mood disorder F39 Active 461260 05 Problem Bipolar I disorder, most recent episode depressed, moderat e F31.32 Active 104676461 ALLERGIES No Information ENCOUNTERS Encounter Location Date Diagnosis [facility] [address] [facility] [id number] [address] [place] [address] Dec, [facility] [address] [facility] [id number] [address] [place] [address] 17 Dec, 2019 Chronic pain G89.29 [facility] [address] [facility] [id number] [address] [place] [address] 13 Dec, 2019 [facility] [address] [id number] [address] [place] [address] Dec, [facility] [address] [facility] [id number] [address] [place] [address] Dec, Gastroesophageal reflux dise ase without esophagitis K21.9 and Pure hypercholesterolemia E78.00 [facility] [address] [facility] [id number] [address] [place] [address] Dec, Mood disorder F39 [facility] [address] [facility] [id number] [address] [place] [address] 31 Nov, 2019 Other secondary acute gout, 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 [facility] [address] [facility] [id number] [address] [place] [address] Nov, Gastroesophageal reflux dise ase without esophagitis K21.9 [facility] [address] [facility] [id number] [address] [place] [address] Nov, Chronic pain G89.29 [facility] [address] [facility] [id number] [address] [place] [address] Nov, Bipolar I disorder, most rec ent episode depressed, moderate F31.32 ; Anxiety F41.9 and Mild cognitive impairment G31.84 [place] [address] [facility] [id number] [address] [place] [address] Nov, [place] [address] [facility] [id number] [address] [place] [address] Nov, Syncope, unspecified syncope type R55 [place] [address] [facility] [id number] [address] [place] [address] Nov, Mood disorder F39 [place] [address] [facility] [id number] [address] [place] [address] Oct, Chronic pain G89.29 [facility] [address] [facility] [id number] [address] [place] [address] Oct, [facility] [address] [facility] [id number] [address] [place] [address] Oct, Mood disorder F39 [facility] [address] [facility] [id number] [address] [place] [address] Oct, [place] [address] [facility] [id number] [address] [place] [address] Oct, Bipolar disorder, in partial remission, most recent episode depressed F31.75 and Mild cognitive impairment G31.84 [place] [address] [facility] [id number] [address] [place] [address] Oct, Mood disorder F39 [facility] [address] [id number] [address] [place] [address] Sep, [facility] [address] [id number] [address] [place] [address] Sep, Mood disorder F39 [facility] [address] [id number] [address] [place] [address] Sep, Bipolar disorder, in partial remission, most recent episode depressed F31.75 and Mild cognitive impairment G31.84 [facility] [address] [id number] [address] [place] [address] Sep, Mood disorder F39 [facility] [address] [id number] [address] [place] [address] Sep, [facility] [address] [id number] [address] [place] [address] Sep, Mood disorder F39 [facility] [address] [id number] [address] [place] [address] Sep, [facility] [address] [id number] [address] [place] [address] Aug, Mood disorder F39 [facility] [address] [id number] [address] [place] [address] Aug, [facility] [address] [id number] [address] [place] [address] Aug, [facility] [address] [id number] [address] [place] [address] Aug, [facility] [address] [id number] [address] [place] [address] Aug, [facility] [address] [id number] [address] [place] [address] Aug, [facility] [address] [id number] [address] [place] [address] Aug, [facility] [address] [id number] [address] [place] [address] Aug, [facility] [address] [id number] [address] [place] [address] Aug, Essential hypertension I10 [facility] [address] [id number] [address] [place] [address] Aug, Bipolar disorder, in partial remission, most recent episode depressed F31.75 and Mild cognitive impairment G31.84 [facility] [address] [id number] [address] [place] [address] Aug, Mood disorder F39 [facility] [address] [id number] [address] [place] [address] Aug, [facility] [address] [id number] [address] [place] [address] Aug, Bipolar disorder, in partial remission, most recent episode depressed F31.75 and Mild cognitive impairment G31.84 [facility] [address] [id number] [address] [place] [address] Jul, Bipolar disorder, in partial remission, most recent episode depressed F31.75 and Mild cognitive impairment G31.84 [facility] [address] [id number] [address] [place] [address] Jul, Psychophysiological insomnia F51.04 [facility] [address] [id number] [address] [place] [address] Jul, [facility] [address] [id number] [address] [place] [address] Jul, [facility] [address] [id number] [address] [place] [address] Jul, [facility] [address] [id number] [address] [place] [address] Jul, [facility] [address] [id number] [address] [place] [address] Jul, [place] [address] [facility] [id number] [address] [place] [address] Jul, [place] [address] [facility] [id number] [address] [place] [address] Jul, Bipolar disorder, in partial remission, most recent episode depressed F31.75 and Mild cognitive impairment G31.84 [place] [address] [place] [id number] [address] [place] [address] Jul, Chronic pain G89.29 ; Diabet es E11.9 ; Essential hypertension I10 ; Ill feeling R68.89 ; Local infection of the skin and subcutaneous tissue, unspecified L08.9 and Other injury of unspecified body region, initial encounter T14.8XXA [place] [address] [place] [id number] [address] [place] [address] Jun, Bipolar disorder, in partial remission, most recent episode depressed F31.75 and Mild cognitive impairment G31.84 [place] [address] [facility] [id number] [address] [place] [address] Jun, [place] [address] [facility] [id number] [address] [place] [address] Jun, Bipolar disorder, in partial remission, most recent episode depressed F31.75 and Mild cognitive impairment G31.84 [place] [address] [place] [id number] [address] [place] [address] Jun, Psychophysiological insomnia F51.04 [place] [address] [facility] [id number] [address] [place] [address] Jun, Psychophysiological insomnia F51.04 ; Chronic pain G89.29 ; Bipolar I disorder, most recent episode (or current) mixed, moderate F31.62 ; 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 ; Polyneuropathy associated with underlying disease G63 ; Type 2 diabetes mellitus with diabetic neuropathy, unspecified E11.40 ; 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.4 and Hyperglycemia R73.[address] [id number] [address] [place] [address] Jun, Bipolar disorder, in partial remission, most recent episode depressed F31.75 and Mild cognitive impairment G31.84 [facility] [address] [id number] [address] [place] [address] Jun, [facility] [address] [facility] [id number] [address] [place] [address] Jun, Bipolar disorder F31.9 [facility] [address] [facility] [id number] [address] [place] [address] May, Bipolar disorder, in partial remission, most recent episode depressed F31.75 and Mild cognitive impairment G31.84 [facility] [address] [facility] [id number] [address] [place] [address] May, [facility] [address] [facility] [id number] [address] [place] [address] Apr, Chronic pain G89.29 and Bipo lar disorder F31.9 [facility] [address] [id number] [address] [place] [address] Mar, Bipolar disorder F31.9 and C hronic pain G89.29 [facility] [address] [facility] [id number] [address] [place] [address] Feb, Bipolar disorder F31.9 [facility] [address] [id number] [address] [place] [address] Feb, Cellulitis of right upper ex tremity L03.113 and Skin abrasion T14.8XXA [facility] [address] [id number] [address] [place] [address] Feb, Bipolar disorder, in partial remission, most recent episode depressed F31.75 and Mild cognitive impairment G31.84 [facility] [address] [id number] [address] [place] [address] Feb, Chronic pain G89.29 [facility] [address] [facility] [id number] [address] [place] [address] Feb, Bipolar disorder, in partial remission, most recent episode depressed F31.75 and Mild cognitive impairment G31.84 [facility] [address] [id number] [address] [place] [address] January, Bipolar disorder, in partial remission, most recent episode depressed F31.75 and Mild cognitive impairment G31.84 [facility] [address] [id number] [address] [place] [address] January, Chronic pain G89.29 and Bipo lar disorder F31.9 [facility] [address] [id number] [address] [place] [address] January, Bipolar disorder, in partial remission, most recent episode depressed F31.75 and Mild cognitive impairment G31.84 [facility] [address] [id number] [address] [place] [address] Dec, [facility] [address] [id number] [address] [place] [address] Dec, Chronic pain G89.29 and Bipo lar disorder F31.9 [facility] [address] [id number] [address] [place] [address] Dec, Edema of both lower extremit ies R60.0 [facility] [address] [id number] [address] [place] [address] Dec, Bipolar disorder F31.9 [facility] [address] [id number] [address] [place] [address] Dec, Bipolar disorder, in partial remission, most recent episode depressed F31.75 and Mild cognitive impairment G31.84 [facility] [address] [id number] [address] [place] [address] Nov, [facility] [address] [id number] [address] [place] [address] Nov, Chronic pain G89.29 [facility] [address] [id number] [address] [place] [address] Nov, Bipolar disorder, in partial remission, most recent episode depressed F31.75 and Mild cognitive impairment G31.84 [place] [address] [place] [id number] [address] [place] [address] Nov, Bipolar disorder F31.9 [place] [address] [place] [id number] [address] [place] [address] 04 Nov, 2018 [facility] ; Polyneuropathy associated [...] unspecified morphology N40.1 and Essential hypertension I10 [place] [id number] [place] [address] Oct, Chronic pain G89.29 [place] [address] [place] [id number] [address] [place] [address] 18 Oct, 2018 Diabetes E11.9 [place] [address] [place] [id number] [address] [place] [address] Oct, Bipolar I disorder, most rec ent episode (or current) mixed, moderate F31.62 and Mild cognitive impairment G31.84 [place] [address] [place] [id number] [address] [place] [address] Oct, Bipolar I disorder, most rec ent episode (or current) mixed, moderate F31.62 and Mild cognitive impairment G31.84 [place] [address] [place] [id number] [address] [place] [address] Sep, Bipolar I disorder, most rec ent episode (or current) mixed, moderate F31.62 and Mild cognitive impairment G31.84 [place] [address] [place] [id number] [address] [place] [address] Sep, [facility] [address] [place] [id number] [address] [place] [address] Sep, Diabetes E11.9 ; Hypoxia R09 .02 ; Hyperglycemia R73.9 ; Therapeutic drug monitoring Z51.81 ; BMI 50.0-59.9, adult Z68.43 and Skin cancer C44.90 [place] [address] [place] [id number] [place] [address] Sep, Chronic pain G89.29 [place] [address] [place] [id number] [place] [address] Sep, Bipolar I disorder, most rec ent episode (or current) mixed, moderate F31.62 [place] [address] [place] [id number] [place] [address] Sep, [place] [address] [place] [id number] [place] [address] Sep, [place] [address] [place] [id number] [address] [place] [address] Aug, Chronic pain G89.29 [place] [address] [place] [id number] [address] [place] [address] Aug, Bipolar I disorder, most rec ent episode (or current) mixed, moderate F31.62 [place] [address] [place] [id number] [address] [place] [address] Aug, Bipolar I disorder, most rec ent episode (or current) mixed, moderate F31.62 and Mild cognitive impairment G31.84 [place] [address] [place] [id number] [address] [place] [address] Jul, [place] [address] [place] [id number] [address] [place] [address] Jul, Chronic pain G89.29 [facility] [address] [place] [id number] [address] [place] [address] Jul, Bipolar I disorder, most rec ent episode (or current) mixed, moderate F31.62 and Mild cognitive impairment G31.84 [place] [address] [facility] [id number] [address] [place] [address] Jul, Bipolar I disorder, most rec ent episode (or current) mixed, moderate F31.62 and MCI (mild cognitive impairment) G31.84 [place] [address] [facility] [id number] [address] [place] [address] Jul, [facility] [address] [facility] [id number] [address] [place] [address] Jul, [place] [address] [place] [id number] [place] [address] Jul, Bipolar I disorder, most rec ent episode (or current) mixed, moderate F31.62 [place] [address] [place] [id number] [address] [place] [address] Jul, Chronic pain G89.29 [place] [address] [facility] [id number] [address] [place] [address] Jun, Bipolar I disorder, most rec ent episode (or current) mixed, moderate F31.62 [place] [address] [place] [id number] [address] [place] [address] Jun, Pre-procedure lab exam Z01.8 12 [place] [address] [place] [id number] [address] [place] [address] Jun, [facility] [address] [id number] [place] [id number] Jun, [place] [address] [facility] [id number] [address] [place] [address] Jun, [place] [address] [place] [id number] [address] [place] [address] Jun, Forgetfulness R68.89 ; Pre-s yncope R55 ; Localized edema R60.0 ; Other iron deficiency anemia D50.8 and BMI 50.0-59.9, adult Z68.43 [facility] [address] [facility] [id number] [address] [place] [address] Jun, Chronic pain G89.29 [facility] [address] [facility] [id number] [address] [place] [address] Jun, Chronic pain G89.29 [facility] [address] [facility] [id number] [address] [place] [address] Jun, Bipolar I disorder, most rec ent episode (or current) mixed, moderate F31.62 [facility] [address] [facility] [id number] [address] [place] [address] May, Chronic pain G89.29 [facility] [address] [facility] [id number] [address] [place] [address] Apr, [place] [address] [facility] [id number] [address] [place] [address] Apr, Chronic pain G89.29 [facility] [address] [facility] [id number] [address] [place] [address] Apr, Primary osteoarthritis of ri ght knee M17.11 [facility] [address] [facility] [id number] [address] [place] [address] Mar, [facility] [address] [facility] [id number] [address] [place] [address] Mar, BMI 50.0-59.9, adult Z68.43 and Bipolar disorder, in partial remission, most recent episode depressed F31.75 [facility] [address] [facility] [id number] [address] [place] [address] Mar, Diabetes E11.9 ; Pure hyperc holesterolemia E78.00 ; Essential hypertension I10 ; Nausea with vomiting, unspecified R11.2 and Headache, unspecified headache type R51 [facility] [address] [facility] [id number] [address] [place] [address] Mar, Bipolar I disorder, most rec ent episode (or current) mixed, moderate F31.62 [facility] [address] [id number] [address] [place] [address] 16 Mar, 2018 Bipolar I disorder, most rec ent episode (or current) mixed, moderate F31.62 [facility] [address] [facility] [id number] [address] [place] [address] Mar, Chronic pain G89.29 [facility] [address] [facility] [id number] [address] [place] [address] Mar, Bipolar I disorder, most rec ent episode (or current) mixed, moderate F31.62 [facility] [address] [facility] [id number] [address] [place] [address] Feb, Bipolar I disorder, most rec ent episode (or current) mixed, moderate F31.62 [facility] [address] [facility] [id number] [address] [place] [address] Feb, Chronic pain G89.29 [facility] [address] [facility] [id number] [address] [place] [address] Feb, Decubitus ulcer of right josselin t, stage 3 L89.893 and BMI 50.0-59.9, adult Z68.43 [facility] [address] [facility] [id number] [address] [place] [address] Feb, Bipolar I disorder, most rec ent episode (or current) mixed, moderate F31.62 [facility] [address] [facility] [id number] [address] [place] [address] Feb, [facility] [address] [facility] [id number] [address] [place] [address] January, [facility] [address] [facility] [id number] [address] [place] [id number] January, Chronic pain G89.29 [facility] [address] [facility] [id number] [address] [place] [id number] January, Bipolar I disorder, most rec ent episode (or current) mixed, moderate F31.62 [place] [address] [place] [id number] [address] [place] [id number] January, Bipolar I disorder, most rec ent episode (or current) mixed, moderate F31.62 [place] [address] [place] [id number] [address] [place] [address] Dec, Bipolar I disorder, most rec ent episode (or current) mixed, moderate F31.62 and BMI 50.0-59.9, adult Z68.43 [place] [address] [address] Dec, Bipolar I disorder, most rec ent episode (or current) mixed, moderate F31.62 [place] [address] [address] Dec, Chronic pain G89.29 [place] [address] [address] Dec, DM neuro manif type II E11.4 9 ; Right flank pain R10.9 ; skilled nursing 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 Z79.891 ; Encounter for medication monitoring Z51.81 and BMI 50.0-59.9, adult Z68.43 [place] [address] [address] Dec, Bipolar I disorder, most rec ent episode (or current) mixed, moderate F31.62 [place] [address] [place] [id number] [place] [address] Nov, Bipolar I disorder, most rec ent episode (or current) mixed, moderate F31.62 [place] [address] [place] [id number] [address] [place] [address] Nov, Chronic pain G89.29 [place] [address] [place] [id number] [place] [address] Nov, Bipolar I disorder, most rec ent episode (or current) mixed, moderate F31.62 [place] [address] [place] [id number] [place] [address] Nov, Hypokalemia E87.6 [place] [address] [place] [id number] [place] [address] Nov, Bipolar I disorder, most rec ent episode (or current) mixed, moderate F31.62 [place] [address] [address] Oct, Chronic pain G89.29 [place] [address] [address] Oct, BMI 50.0-59.9, adult Z68.43 and Bipolar I disorder, most recent episode (or current) mixed, moderate F31.62 [place] [address] [address] Oct, Bipolar I disorder, most rec ent episode (or current) mixed, moderate F31.62 [place] [address] [address] Oct, [place] [address] [address] Oct, Hypokalemia E87.6 [place] [address] [place] [id number] [place] [address] Oct, DM neuro manif type II E11.4 9 [place] [address] [address] Oct, Bipolar I disorder, most rec ent episode (or current) mixed, moderate F31.62 [place] [address] [address] Oct, Bipolar I disorder, most rec ent episode (or current) mixed, moderate F31.62 [place] [address] [place] [id number] [place] [address] 14 Oct, 2017 Hyperkalemia E87.5 ; Falling R29.6 ; BMI 50.0-59.9, adult Z68.43 and Acute left ankle pain M25.572 [place] [id number] [place] [address] 08 Oct, 2017 DM neuro manif type II E11.4 9 [place] [address] [place] [id number] [place] [address] Oct, [place] [address] [place] [id number] [place] [address] Sep, Chronic pain G89.29 [place] [address] [place] [id number] [place] [address] Sep, [place] [address] [place] [id number] [place] [address] Sep, Bilateral primary osteoarthr itis of knee M17.0 [place] [address] [address] Sep, Generalized edema R60.1 [place] [address] [address] 16 Sep, 2017 Bipolar I disorder, most rec ent episode (or current) mixed, moderate F31.62 [place] [address] [address] 15 Sep, 2017 Hypoxia R09.02 ; Other hyper volemia E87.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 ; Anemia of chronic illness D63.8 and BMI 50.0- 59.9, adult Z68.43 [place] [address] [address] Sep, [place] [address] [place] [id number] [place] [address] Sep, Bipolar I disorder, most rec ent episode (or current) mixed, moderate F31.62 [place] [address] [place] [address] Aug, Chronic pain G89.29 [facility] [address] [facility] [id number] [address] [place] [address] Aug, Generalized edema R60.1 [facility] [address] [facility] [id number] [address] [place] [address] Aug, [facility] [address] [facility] [id number] [address] [place] [address] Aug, [facility] [address] [facility] [id number] [address] [place] [address] 14 Aug, 2017 Bipolar I disorder, most rec ent episode (or current) mixed, moderate F31.62 [place] [address] [place] [id number] [place] [address] 07 Aug, 2017 Bipolar I disorder, most rec ent episode (or current) mixed, moderate F31.62 [place] [address] [place] [id number] [place] [address] Aug, Chronic pain G89.29 [facility] [address] [facility] [id number] [address] [place] [address] 30 Jul, 2017 Bipolar I disorder, most rec ent episode (or current) mixed, moderate F31.62 [facility] [address] [facility] [id number] [address] [place] [address] Jul, Bipolar I disorder, most rec ent episode (or current) mixed, moderate F31.62 and BMI 60.0-69.9, adult Z68.44 [facility] [address] [facility] [id number] [address] [place] [address] 16 Jul, 2017 Bipolar I disorder, most rec ent episode (or current) mixed, moderate F31.62 [facility] [address] [facility] [id number] [address] [place] [address] 06 Jul, 2017 Chronic pain G89.29 [facility] [address] [place] [id number] [address] [place] [address] Jul, Bipolar I disorder, most rec ent episode (or current) mixed, moderate F31.62 [facility] [address] [facility] [id number] [address] [place] [address] Jun, Polyneuropathy associated wi th underlying disease G63 and Diabetes E11.9 [facility] [address] [facility] [id number] [address] [place] [address] 16 Jun, 2017 Bipolar I disorder, most rec ent episode (or current) mixed, moderate F31.62 [facility] [address] [facility] [id number] [address] [place] [address] Jun, Chronic pain G89.29 [facility] [address] [facility] [id number] [address] [place] [address] May, Bipolar I disorder, most rec ent episode (or current) mixed, moderate F31.62 [facility] [address] [place] [id number] [address] [place] [address] May, Bipolar I disorder, most rec ent episode (or current) mixed, moderate F31.62 [facility] [address] [facility] [id number] [address] [place] [address] 20 May, 2017 Diabetic polyneuropathy asso ciated with type 2 diabetes mellitus E11.42 [facility] [address] [facility] [id number] [address] [place] [address] 18 May, 2017 Bipolar I disorder, most rec ent episode (or current) mixed, moderate F31.62 [facility] [address] [facility] [id number] [address] [place] [address] 13 May, 2017 Bipolar I disorder, most rec ent episode (or current) mixed, moderate F31.62 [facility] [address] [facility] [id number] [address] [place] [address] May, Chronic pain G89.29 [facility] [address] [facility] [id number] [address] [place] [address] Apr, Bipolar I disorder, most rec ent episode (or current) mixed, moderate F31.62 [facility] [address] [id number] [address] [place] [address] Apr, [facility] [address] [id number] [address] [place] [address] Apr, Chronic pain G89.29 and DM n euro manif type II E11.49 [facility] [address] [id number] [address] [place] [address] Apr, [facility] [address] [id number] [address] [place] [address] Apr, Bipolar I disorder, most rec ent episode (or current) mixed, moderate F31.62 [facility] [address] [facility] [id number] [address] [place] [address] Apr, Chronic pain G89.29 [facility] [address] [facility] [id number] [address] [place] [address] Apr, Iliotibial band syndrome, le ft M76.32 [facility] [address] [facility] [id number] [address] [place] [address] Apr, Bipolar I disorder, most rec ent episode (or current) mixed, moderate F31.62 [facility] [address] [facility] [id number] [address] [place] [address] Mar, Bipolar I disorder, most rec ent episode (or current) mixed, moderate F31.62 [facility] [address] [facility] [id number] [address] [place] [address] Mar, Bipolar I disorder, most rec ent episode (or current) mixed, moderate F31.62 [facility] [address] [facility] [id number] [address] [place] [address] Mar, [facility] [address] [facility] [id number] [address] [place] [address] Mar, Bipolar I disorder, most rec ent episode (or current) mixed, moderate F31.62 [facility] [address] [facility] [id number] [address] [place] [address] Mar, Chronic pain G89.29 [facility] [address] [facility] [id number] [address] [place] [address] Mar, Bipolar I disorder, most rec ent episode (or current) mixed, moderate F31.62 [facility] [address] [facility] [id number] [address] [place] [address] Mar, Bipolar I disorder, most rec ent episode (or current) mixed, moderate F31.62 [facility] [address] [facility] [id number] [address] [place] [address] Mar, Acute pain of left knee M25. 562 ; Left hip pain M25.552 ; Generalized edema R60.1 and Tongue swelling R22.0 [facility] [address] [facility] [id number] [address] [place] [address] Mar, [facility] [address] [facility] [id number] [address] [place] [address] Feb, Chronic pain G89.29 [facility] [address] [facility] [id number] [address] [place] [address] Feb, Diabetes E11.9 [facility] [address] [facility] [id number] [address] [place] [address] January, Chronic pain G89.29 [facility] [address] [facility] [id number] [address] [place] [address] January, [facility] [address] [facility] [id number] [address] [place] [address] January, Bipolar I disorder, most rec ent episode (or current) mixed, moderate F31.62 [facility] [address] [facility] [id number] [address] [place] [address] Dec, Bipolar I disorder, most rec ent episode (or current) mixed, moderate F31.62 [facility] [address] [facility] [id number] [address] [place] [address] 24 Apr, 2017 Chronic pain G89.29 [facility] [address] [id number] [address] [place] [address] Dec, Bipolar I disorder, most rec ent episode (or current) mixed, moderate F31.62 [facility] [address] [facility] [id number] [address] [place] [address] Dec, Diabetes E11.9 ; Essential h ypertension I10 ; Chronic pain G89.29 and Morbid obesity E66.01 [facility] [address] [facility] [id number] [address] [place] [address] Dec, [facility] [address] [facility] [id number] [address] [place] [address] Dec, Bipolar I disorder, most rec ent episode (or current) mixed, moderate F31.62 [facility] [address] [facility] [id number] [address] [place] [address] Dec, Bipolar I disorder, most rec ent episode (or current) mixed, moderate F31.62 [facility] [address] [facility] [id number] [address] [place] [address] Nov, Chronic pain G89.29 [facility] [address] [facility] [id number] [address] [place] [address] Nov, Bipolar I disorder, most rec ent episode (or current) mixed, moderate F31.62 [facility] [address] [facility] [id number] [address] [place] [address] Nov, [facility] [address] [facility] [id number] [address] [place] [address] Nov, Bipolar I disorder, most rec ent episode (or current) mixed, moderate F31.62 [facility] [address] [facility] [id number] [address] [place] [address] Nov, Bipolar I disorder, most rec ent episode (or current) mixed, moderate F31.62 [facility] [address] [facility] [id number] [address] [place] [address] Nov, [facility] [address] [id number] [address] [place] [address] Nov, [facility] [address] [id number] [address] [place] [address] Nov, [facility] [address] [facility] [id number] [address] [place] [address] Oct, Chronic pain G89.29 [facility] [address] [facility] [id number] [address] [place] [address] Oct, Bipolar I disorder, most rec ent episode (or current) mixed, moderate F31.62 [facility] [address] [id number] [address] [place] [address] Oct, [facility] [address] [facility] [id number] [address] [place] [address] Oct, Chronic pain G89.29 ; Diabet es E11.9 ; Anxiety F41.9 and 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 [facility] [address] [facility] [id number] [address] [place] [address] Oct, [facility] [address] [facility] [id number] [address] [place] [address] Oct, Diabetes E11.9 [facility] [address] [facility] [id number] [address] [place] [address] Oct, Bipolar I disorder, most rec ent episode (or current) mixed, moderate F31.62 [facility] [address] [facility] [id number] [address] [place] [address] Sep, Chronic pain G89.29 [facility] [address] [facility] [id number] [address] [place] [address] Sep, Chronic pain G89.29 [facility] [address] [facility] [id number] [address] [place] [address] Aug, Chronic pain G89.29 [facility] [address] [facility] [id number] [address] [place] [address] Jul, [facility] [address] [place] [id number] [address] [place] [address] Jul, Diabetes E11.9 [facility] [address] [place] [id number] [address] [place] [address] Jul, Chronic pain G89.29 [place] [address] [place] [id number] [address] [place] [address] Jul, Bipolar I disorder, most rec ent episode (or current) mixed, moderate F31.62 [place] [address] [place] [id number] [place] [address] Jun, Bipolar I disorder, most rec ent episode (or current) mixed, moderate F31.62 [place] [address] [place] [id number] [address] [place] [address] Jun, [place] [address] [place] [id number] [place] [address] Jun, Bipolar I disorder, most rec ent episode (or current) mixed, moderate F31.62 [place] [address] [place] [id number] [address] [place] [address] May, Insomnia, unspecified type G 47.00 [place] [address] [place] [id number] [address] [place] [address] May, Bipolar I disorder, most rec ent episode (or current) mixed, moderate F31.62 [place] [address] [place] [id number] [address] [place] [address] 14 May, 2016 [place] [address] [place] [id number] [place] [address] 08 May, 2016 Bipolar I disorder, most rec ent episode (or current) mixed, moderate F31.62 [place] [address] [place] [id number] [place] [address] May, Diabetes E11.9 and Essential hypertension I10 [facility] [address] [id number] [address] [place] [address] Apr, Chronic pain G89.29 [facility] [address] [facility] [id number] [address] [place] [address] Apr, Bipolar I disorder, most rec ent episode (or current) mixed, moderate F31.62 [place] [address] [facility] [id number] [address] [place] [address] Apr, [facility] [address] [facility] [id number] [address] [place] [address] Apr, [place] [address] [facility] [id number] [address] [place] [address] Mar, Chronic pain G89.29 ; Headac he, unspecified headache type R51 ; Neuropathy G62.9 ; Pain of right hip joint M25.551 and Essential hypertension I10 [place] [address] [facility] [id number] [address] [place] [address] Mar, Chronic pain G89.29 [place] [address] [facility] [id number] [address] [place] [address] Mar, Bipolar I disorder, most rec ent episode (or current) mixed, moderate F31.62 [place] [address] [facility] [id number] [address] [place] [address] Feb, Bipolar I disorder, most rec ent episode (or current) mixed, moderate F31.62 and Insomnia, unspecified type G47.00 [place] [address] [id number] [address] [place] [address] Feb, Chronic pain G89.29 [place] [address] [facility] [id number] [address] [place] [address] Feb, Bipolar I disorder, most rec ent episode (or current) mixed, moderate F31.62 [place] [address] [facility] [id number] [address] [place] [address] January, Bipolar I disorder, most rec ent episode (or current) mixed, moderate F31.62 [facility] [address] [id number] [address] [place] [address] January, Chronic pain G89.29 [facility] [address] [facility] [id number] [address] [place] [address] January, Chronic pain G89.29 and Esse ntial hypertension I10 [facility] [address] [id number] [address] [place] [address] January, Bipolar I disorder, most rec ent episode (or current) mixed, moderate F31.62 [facility] [address] [id number] [address] [place] [address] Dec, [facility] [address] [facility] [id number] [address] [place] [address] Dec, [facility] [address] [facility] [id number] [address] [place] [address] Dec, [facility] [address] [facility] [id number] [address] [place] [address] Dec, [facility] [address] [facility] [id number] [address] [place] [address] Nov, Reactive airway disease J45. 909 [facility] [address] [facility] [id number] [address] [place] [address] Nov, [facility] [address] [id number] [address] [place] [address] Nov, [facility] [address] [facility] [id number] [address] [place] [address] Nov, [facility] [address] [facility] [id number] [address] [place] [address] Nov, [facility] [address] [facility] [id number] [address] [place] [address] Nov, Onychomycosis B35.1 ; Hammer toe M20.40 ; [place] or callus L84 and DM neuro manif type II E11.49 [facility] [address] [place] [id number] [address] [place] [address] Nov, Chronic pain G89.29 ; Leukoc ytosis D72.829 and Diabetes E11.9 [facility] [address] [facility] [id number] [address] [place] [address] Nov, [facility] [address] [place] [id number] [address] [place] [address] Oct, Bronchitis J40 [facility] [address] [place] [id number] [address] [place] [address] Oct, [place] [address] [address] Oct, [place] [address] [address] Oct, Mastoiditis, unspecified lat erality H70.90 and Type 2 diabetes mellitus with complication E11.8 [place] [address] [place] [id number] [address] [place] [address] Sep, [place] [address] [address] Sep, Dysuria R30.0 ; Cough R05 ; Benign prostatic hyperplasia with lower urinary tract symptoms, unspecified morphology N40.1 ; Hypokalemia E87.6 and Eustachian tube dysfunction, unspecified laterality H69.80 [place] [id number] [place] [address] Sep, Moderate mixed bipolar I dis order F31.62 [place] [address] [address] Sep, Hypokalemia E87.6 [place] [address] [address] [place] [id number] [address] [place] [address] Sep, [place] [address] [address] Sep, Upper respiratory tract infe ction, unspecified type J06.9 [facility] [address] [id number] [address] [place] [address] Aug, [facility] [address] [id number] [address] [place] [address] Aug, Dysuria R30.0 [facility] [address] [id number] [address] [place] [address] Aug, [facility] [address] [id number] [address] [place] [address] Jul, [facility] [address] [id number] [address] [place] [address] Jul, [facility] [address] [id number] [address] [place] [address] Jul, [facility] [address] [id number] [address] [place] [address] Jul, [facility] [address] [id number] [address] [place] [address] Jun, [facility] [address] [id number] [address] [place] [address] Jun, [facility] [address] [id number] [address] [place] [address] Jun, [facility] [address] [id number] [address] [place] [address] May, [facility] [address] [id number] [address] [place] [address] May, Bipolar I disorder, most rec ent episode (or current) mixed, moderate 296.62 [facility] [address] [id number] [address] [place] [id number] 16 May, 2015 [facility] [address] [address] [id number] [address] [place] [address] May, Bipolar I disorder, most rec ent episode (or current) mixed, moderate 296.62 and Major depressive disorder, recurrent episode, severe, specified as with psychotic behavior 296.34 [facility] [address] [facility] [id number] [address] [place] [address] May, Bipolar I disorder, most rec ent episode (or current) mixed, moderate 296.62 [facility] [address] [facility] [id number] [address] [place] [address] May, [facility] [address] [facility] [id number] [address] [place] [address] Apr, [facility] [address] [facility] [id number] [address] [place] [address] Apr, [facility] [address] [place] [id number] [address] [place] [address] Apr, Unspecified disorder of kidn ey and ureter 593.9 and Diabetes mellitus type 2, uncontrolled 250.02 [facility] [address] [place] [id number] [address] [place] [address] Apr, [facility] [address] [facility] [id number] [address] [place] [address] Apr, [facility] [address] [place] [id number] [address] [place] [address] Apr, [facility] [address] [facility] [id number] [address] [place] [address] Apr, [facility] [address] [place] [id number] [address] [place] [address] Apr, Diabetes mellitus type II, u ncontrolled 250.02 [facility] [address] [facility] [id number] [address] [place] [address] Apr, [facility] [address] [facility] [id number] [address] [place] [address] Mar, [facility] [address] [place] [id number] [address] [place] [address] Mar, [facility] [address] [facility] [id number] [address] [place] [address] Mar, [facility] [address] [place] [id number] [address] [place] [address] Mar, Major depressive disorder, r ecurrent episode, severe, specified as with psychotic behavior 296.34 and Bipolar I disorder, most recent episode (or current) mixed, moderate 296.62 [facility] [id number] [place] [address] Mar, Diabetes 250.00 ; Anuria 788 .5 ; Nausea and vomiting 787.01 and Diarrhea 787.91 [facility] [address] [place] [id number] [address] [place] [address] Mar, Diabetes 250.00 [facility] [address] [place] [id number] [address] [place] [address] Mar, [facility] [address] [place] [id number] [address] [place] [address] Mar, Diabetes 250.00 [facility] [address] [place] [id number] [address] [place] [address] Mar, [facility] [address] [place] [id number] [address] [place] [address] Mar, [facility] [address] [place] [id number] [address] [place] [address] Mar, [facility] [address] [place] [id number] [address] [place] [address] Mar, [facility] [address] [place] [id number] [address] [place] [address] Mar, Bipolar I disorder, most rec ent episode (or current) mixed, moderate 296.62 and Major depressive disorder, recurrent episode, severe, specified as with psychotic behavior 296.34 [facility] [address] [place] [id number] [address] [place] [address] Mar, Magnesium deficiency 275.2 ; Hypokalemia 276.8 ; Nausea & vomiting 787.01 and Diabetes mellitus type 2, uncontrolled 250.02 [place] [address] [address] Feb, [facility] [address] [address] Feb, Bipolar I disorder, most rec ent episode (or current) mixed, moderate 296.62 [place] [address] [address] Feb, Nausea and vomiting 787.01 ; Left elbow pain 719.42 ; Anuria 788.5 and Diabetes 250.00 [place] [address] [address] Feb, [place] [address] [address] Feb, Hypopotassemia 276.8 and Hyp okalemia 276.[address] [address] Feb, Hypopotassemia 276.8 and Hyp okalemia 276.8 [place] [address] [address] Feb, Seborrheic keratoses 702.19 [place] [address] [address] Feb, Hypopotassemia 276.8 and Low magnesium levels 275.2 [place] [address] [address] January, [place] [address] [address] January, [place] [address] [address] January, [place] [address] [address] January, Scalp lesion 709.9 [facility] [address] [id number] [address] [place] [address] January, [facility] [address] [id number] [address] [place] [address] Dec, Tear of medial cartilage or meniscus of knee, current 836.0 and 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 [facility] [address] [id number] [address] [place] [address] Dec, [facility] [address] [id number] [address] [place] [address] Dec, [facility] [address] [id number] [address] [place] [address] Dec, Squamous cell carcinoma, 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 [facility] [address] [id number] [address] [place] [address] Dec, [facility] [address] [id number] [address] [place] [address] Dec, [facility] [address] [id number] [address] [place] [address] Nov, [facility] [address] [id number] [address] [place] [address] Nov, [facility] [address] [id number] [address] [place] [address] Nov, [facility] [address] [id number] [address] [place] [address] Nov, [facility] [address] [id number] [address] [place] [address] Nov, [facility] [address] [id number] [address] [place] [address] Nov, [facility] [address] [id number] [address] [place] [address] Nov, [facility] [address] [id number] [address] [place] [address], [place] [address] Nov, 2014 [facility] [address] [id number] [address] [place] [address], [place] [address] Nov, 2014 [facility] [address] [id number] [address] [place] [address], [place] [address] Nov, 2014 [facility] [address] [id number] [address] [place] [address], [place] [address] Nov, 2014 [facility] [address] [id number] [address] [place] [address], [place] [address] Nov, 2014 [facility] [address] [id number] [address] [place] [address], [place] [address] Oct, 2014 [facility] [address] [id number] [address] [place] [address], [place] [address] Oct, 2014 [facility] [address] [id number] [address] [place] [address], [place] [address] Oct, 2014 [facility] [address] [id number] [address] [place] [address], [place] [address] Oct, 2014 [facility] [address] [id number] [address] [place] [address], [place] [address] Oct, 2014 [facility] [address] [id number] [address] [place] [address] Oct, 2014 [facility] [address] [id number] [address] [place] [address] Oct, 2014 [facility] [address] [id number] [address] [place] [address], [place] [address] Oct, 2014 [facility] [address] [id number] [address] [place] [address] Oct, 2014 [facility] [address] [id number] [address] [place] [address] Sep, [facility] [address] [id number] [address] [place] [address] Sep, [facility] [address] [id number] [address] [place] [address], [place] [address] Sep, [facility] [address] [id number] [address] [place] [address], [place] [address] Sep, [facility] [address] [id number] [address] [place] [address], [place] [address] Sep, [facility] [address] [id number] [address] [place] [address], [place] [address] Sep, [facility] [address] [id number] [address] [place] [address], [place] [address] Sep, [facility] [address] [id number] [address] [place] [address], [place] [address] Sep, [facility] [address] [id number] [address] [place] [address], [place] [address] Sep, [facility] [address] [id number] [address] [place] [address], [place] [address] Sep, [facility] [address] [id number] [address] [place] [address], [place] [address] Sep, [facility] [address] [id number] [address] [place] [address], [place] [address] Sep, [facility] [address] [id number] [address] [place] [address], [place] [address] Sep, [facility] [address] [id number] [address] [place] [address], [place] [address] Sep, [facility] [address] [id number] [address] [place] [address], [place] [address] Sep, [facility] [address] [id number] [address] [place] [address], [place] [address] Sep, [facility] [address] [id number] [address] [place] [address], [place] [address] Aug, [facility] [address] [id number] [facility] [place] [address] Aug, [facility] [address] [id number] [facility] [place] [address] Aug, [facility] [address] [id number] [facility] [place] [address] Aug, [facility] [address] [id number] [facility] [place] [address] Aug, [facility] [address] [id number] [facility] [place] [address] Aug, [facility] [address] [id number] [facility] [place] [address] Aug, [facility] [address] [id number] [facility] [place] [address] Aug, [facility] [address] [id number] [address] [place] [address], [place] [address] Aug, [facility] [address] [id number] [address] [place] [address], [place] [address] Aug, [facility] [address] [id number] [address] [place] [address], [place] [address] Aug, [facility] [address] [place] [id number] Aug, [facility] [address] [id number] [address] [place] [address], [place] [address] Aug, [facility] [address] [id number] [address] [place] [address], [place] [address] Aug, [facility] [address] [id number] [facility] [place] [address] Aug, [facility] [address] [id number] [facility] [place] [address] Aug, [facility] [address] [id number] [facility] [place] [address] Aug, [facility] [address] [id number] [address] [place] [address], [place] [address] Aug, [facility] [address] [id number] [address] [place] [address], [place] [address] Aug, [facility] [address] [id number] [address] [place] [address], [place] [address] Aug, [facility] [address] [id number] [address] [place] [address], [place] [address] Aug, [facility] [address] [id number] [address] [place] [address], [place] [address] Aug, [facility] [address] [id number] [address] [place] [address], [place] [address] Aug, [facility] [address] [id number] [address] [place] [address], [place] [address] Aug, [facility] [address] [id number] [address] [place] [address], [place] [address] Aug, [facility] [address] [id number] [address] [place] [address], [place] [address] Aug, [facility] [address] [id number] [address] [place] [address], [place] [address] Aug, [facility] [address] [id number] [address] [place] [address], [place] [address] Aug, [facility] [address] [id number] [address] [place] [address], [place] [address] Aug, [facility] [address] [id number] [address] [place] [address], [place] [address] Aug, [facility] [address] [id number] [address] [place] [address], [place] [address] Jul, [facility] [address] [id number] [address] [place] [address], [place] [address] Jul, [facility] [address] [id number] [address] [place] [address] Jul, [facility] [address] [id number] [address] [place] [address], [place] [address] Jul, [facility] [address] [id number] [address] [place] [address], [place] [address] Jul, [facility] [address] [id number] [address] [place] [address], [place] [address] Jul, [facility] [address] [id number] [address] [place] [address], [place] [address] Jul, [facility] [address] [id number] [address] [place] [address], [place] [address] Jul, [facility] [address] [id number] [address] [place] [address], [place] [address] Jul, [facility] [address] [id number] [address] [place] [address], [place] [address] Jul, [facility] [address] [id number] [address] [place] [address], [place] [address] Jun, [facility] [address] [id number] [address] [place] [address], [place] [address] Jun, [facility] [address] [id number] [address] [place] [address], [place] [address] Jun, [facility] [address] [id number] [address] [place] [address] Jun, [facility] [address] [id number] [address] [place] [address] Jun, [facility] [address] [id number] [address] [place] [address] Jun, [facility] [address] [id number] [address] [place] [address], [place] [address] Jun, [facility] [address] [id number] [address] [place] [address] Jun, [facility] [address] [id number] [facility] [place] [address] Jun, [facility] [address] [id number] [address] [place] [address], [place] [address] Jun, [facility] [address] [id number] [address] [place] [address], [place] [address] 29 May, 2013 [facility] [address] [id number] [address] [place] [address], [place] [address] 29 Sep, 2013 [facility] [address] [id number] [address] [place] [address], [place] [address] 26 May, 2013 [facility] [address] [id number] [address] [place] [address], [place] [address] 26 May, 2013 [facility] [address] [id number] [address] [place] [address], [place] [address] 17 May, 2013 [facility] [address] [id number] [address] [place] [address], [place] [address] 17 May, 2013 [facility] [address] [id number] [address] [place] [address], [place] [address] 15 May, 2013 [facility] [address] [id number] [address] [place] [address], [place] [address] 15 May, 2013 [facility] [address] [id number] [address] [place] [address], [place] [address] 15 May, 2013 [facility] [address] [id number] [address] [place] [address], [place] [address] 15 May, 2013 [facility] [address] [id number] [address] [place] [address], [place] [address] 10 Sep, 2013 [facility] [address] [id number] [address] [place] [address], [place] [address] 10 Sep, 2013 [facility] [address] [id number] [address] [place] [address], [place] [address] 09 Sep, 2013 [facility] [address] [id number] [address] [place] [address], [place] [address] May, [facility] [address] [id number] [facility] [place] [address] May, [facility] [address] [id number] [facility] [place] [address] May, [facility] [address] [id number] [facility] [place] [address] Apr, [facility] [address] [id number] [address] [place] [address], [place] [address] Apr, [facility] [address] [id number] [address] [place] [address], [place] [address] Apr, [facility] [address] [id number] [address] [place] [address], [place] [address] Apr, [facility] [address] [id number] [address] [place] [address], [place] [address] Apr, [facility] [address] [id number] [address] [place] [address], [place] [address] Apr, [facility] [address] [id number] [address] [place] [address], [place] [address] Apr, [facility] [address] [id number] [address] [place] [address], [place] [address] Apr, [facility] [address] [id number] [address] [place] [address], [place] [address] Apr, [facility] [address] [id number] [address] [place] [address], [place] [address] Apr, [facility] [address] [id number] [address] [place] [address], [place] [address] Apr, [facility] [address] [id number] [address] [place] [address], [place] [address] Apr, [facility] [address] [id number] [address] [place] [address], [place] [address] Apr, [facility] [address] [id number] [facility] [place] [address] Apr, [facility] [address] [id number] [address] [place] [address], [place] [address] Apr, [facility] [address] [id number] [address] [place] [address], [place] [address] Mar, [facility] [address] [id number] [address] [place] [address], [place] [address] Mar, [facility] [address] [id number] [address] [place] [address], [place] [address] Mar, [facility] [address] [id number] [address] [place] [address], [place] [address] Mar, [facility] [address] [id number] [address] [place] [address], [place] [address] Mar, [facility] [address] [id number] [address] [place] [address], [place] [address] Mar, [facility] [address] [id number] [address] [place] [address], [place] [address] Mar, [facility] [address] [id number] [address] [place] [address], [place] [address] Mar, [facility] [address] [id number] [address] [place] [address], [place] [address] Mar, [facility] [address] [id number] [address] [place] [address], [place] [address] Mar, [facility] [address] [id number] [address] [place] [address], [place] [address] Mar, [facility] [address] [id number] [address] [place] [address], [place] [address] Mar, [facility] [address] [id number] [address] [place] [address], [place] [address] Mar, [facility] [address] [id number] [address] [place] [address], [place] [address] Mar, [facility] [address] [id number] [facility] [place] [address] Mar, 2013 [facility] [address] [id number] [facility] [place] [address] Mar, 2013 [facility] [address] [id number] [facility] [place] [address] Mar, [facility] [address] [id number] [facility] [place] [address] Mar, [facility] [address] [id number] [facility] [place] [address] Feb, [facility] [address] [id number] [address] [place] [address], [place] [address] Feb, [facility] [address] [id number] [address] [place] [address], [place] [address] Feb, [facility] [address] [id number] [address] [place] [address], [place] [address] Feb, [facility] [address] [id number] [address] [place] [address], [place] [address] Feb, [facility] [address] [id number] [address] [place] [address], [place] [address] Feb, [facility] [address] [id number] [address] [place] [address], [place] [address] Feb, [facility] [address] [id number] [address] [place] [address], [place] [address] Feb, [facility] [address] [id number] [address] [place] [address], [place] [address] Feb, [facility] [address] [id number] [address] [place] [address], [place] [address] Feb, [facility] [address] [id number] [address] [place] [address], [place] [address] Feb, [facility] [address] [id number] [address] [place] [address], [place] [address] Feb, [facility] [address] [id number] [address] [place] [address], [place] [address] Feb, [facility] [address] [id number] [address] [place] [address], [place] [address] Feb, [facility] [address] [id number] [address] [place] [address], [place] [address] January, [facility] [address] [id number] [address] [place] [address], [place] [address] January, [facility] [address] [id number] [address] [place] [address], [place] [address] January, [facility] [address] [id number] [address] [place] [address], [place] [address] January, [facility] [address] [id number] [address] [place] [address], [place] [address] January, [facility] [address] [id number] [address] [place] [address], [place] [address] January, [facility] [address] [id number] [address] [place] [address], [place] [address] January, [facility] [address] [id number] [address] [place] [address], [place] [address] January, [facility] [address] [id number] [address] [place] [address], [place] [address] January, [facility] [address] [id number] [address] [place] [address], [place] [address] January, [facility] [address] [id number] [address] [place] [address], [place] [address] January, [facility] [address] [id number] [address] [place] [address], [place] [address] January, [facility] [address] [id number] [address] [place] [address], [place] [address] January, [facility] [address] [id number] [facility] [place] [address] January, [facility] [address] [id number] [facility] [place] [address] Dec, [facility] [address] [id number] [facility] [place] [address] Dec, [facility] [address] [id number] [address] [place] [address], [place] [address] Dec, [facility] [address] [id number] [address] [place] [address], [place] [address] Dec, [facility] [address] [id number] [address] [place] [address], [place] [address] Dec, [facility] [address] [id number] [address] [place] [address], [place] [address] Dec, [facility] [address] [id number] [address] [place] [address], [place] [address] Dec, [facility] [address] [id number] [address] [place] [address], [place] [address] Dec, [facility] [address] [id number] [address] [place] [address], [place] [address] Dec, [facility] [address] [id number] [address] [place] [address], [place] [address] Dec, [facility] [address] [id number] [address] [place] [address], [place] [address] Nov, [facility] [address] [id number] [address] [place] [address], [place] [address] Nov, [facility] [address] [id number] [address] [place] [address], [place] [address] Nov, [facility] [address] [id number] [address] [place] [address], [place] [address] Nov, [facility] [address] [id number] [address] [place] [address], [place] [address] Nov, [facility] [address] [id number] [facility] [place] [address] 08 Nov, 2013 [facility] [address] [id number] [address] [place] [address], [place] [address] Nov, [facility] [address] [id number] [address] [place] [address], [place] [address] Nov, [facility] [address] [id number] [address] [place] [address], [place] [address] Nov, [facility] [address] [id number] [address] [place] [address], [place] [address] Nov, [facility] [address] [id number] [address] [place] [address], [place] [address] Oct, [facility] [address] [id number] [address] [place] [address], [place] [address] Oct, [facility] [address] [id number] [address] [place] [address], [place] [address] Oct, [facility] [address] [id number] [address] [place] [address], [place] [address] Oct, [facility] [address] [id number] [address] [place] [address], [place] [address] Oct, [facility] [address] [id number] [address] [place] [address], [place] [address] Oct, [facility] [address] [id number] [address] [place] [address], [place] [address] 14 Oct, 2013 [facility] [address] [id number] [address] [place] [address], [place] [address] 14 Oct, 2013 [facility] [address] [id number] [address] [place] [address], [place] [address] 05 Oct, 2013 [facility] [address] [id number] [address] [place] [address], [place] [address] Oct, [facility] [address] [id number] [address] [place] [address], [place] [address] 04 Oct, 2013 [facility] [address] [id number] [address] [place] [address], [place] [address] Oct, [facility] [address] [id number] [address] [place] [address], [place] [address] Oct, [facility] [address] [id number] [address] [place] [address], [place] [address] Oct, [facility] [address] [id number] [address] [place] [address], [place] [address] Sep, [facility] [address] [id number] [address] [place] [address], [place] [address] Sep, [facility] [address] [id number] [address] [place] [address], [place] [address] Sep, [facility] [address] [id number] [address] [place] [address], [place] [address] Sep, [facility] [address] [id number] [address] [place] [address], [place] [address] Sep, [facility] [address] [id number] [address] [place] [address], [place] [address] Sep, [facility] [address] [id number] [address] [place] [address], [place] [address] Sep, [facility] [address] [id number] [address] [place] [address], [place] [address] Sep, [facility] [address] [id number] [address] [place] [address], [place] [address] Sep, [facility] [address] [id number] [address] [place] [address], [place] [address] Sep, [facility] [address] [id number] [address] [place] [address], [place] [address] 10 Aug, 2013 [facility] [address] [id number] [address] [place] [address], [place] [address] Aug, [facility] [address] [id number] [address] [place] [address], [place] [address] Jul, [facility] [address] [id number] [address] [place] [address], [place] [address] Jul, [facility] [address] [id number] [address] [place] [address], [place] [address] Jul, [facility] [address] [id number] [address] [place] [address], [place] [address] Jul, [facility] [address] [id number] [address] [place] [address], [place] [address] Jul, [facility] [address] [id number] [address] [place] [address] Jul, [facility] [address] [id number] [address] [place] [address], [place] [address] Jul, [facility] [address] [id number] [address] [place] [address] Jul, [facility] [address] [id number] [address] [place] [address] Jul, [facility] [address] [id number] [address] [place] [address] Jul, [facility] [address] [id number] [address] [place] [address] Jul, [facility] [address] [id number] [address] [place] [address] Jul, [facility] [address] [id number] [address] [place] [address] Jul, [facility] [address] [id number] [address] [place] [address] Jul, [facility] [address] [id number] [address] [place] [address] Jul, [facility] [address] [id number] [address] [place] [address], [place] [address] 05 Jul, 2012 [facility] [address] [id number] [address] [place] [address], [place] [address] Jul, 2012 [facility] [address] [id number] [address] [place] [address], [place] [address] Jul, 2012 [facility] [address] [id number] [address] [place] [address], [place] [address] Jul, 2012 [facility] [address] [id number] [address] [place] [address], [place] [address] Jun, 2012 [facility] [address] [id number] [address] [place] [address], [place] [address] Jun, 2012 [facility] [address] [id number] [address] [place] [address], [place] [address] Jun, 2012 [facility] [address] [id number] [address] [place] [address], [place] [address] Jun, 2012 [facility] [address] [id number] [address] [place] [address], [place] [address] Jun, 2012 [facility] [address] [id number] [address] [place] [address], [place] [address] Jun, 2012 [facility] [address] [id number] [address] [place] [address], [place] [address] Jun, 2012 [facility] [address] [id number] [address] [place] [address], [place] [address] Jun, 2012 [facility] [address] [id number] [address] [place] [address] Jun, [facility] [address] [id number] [address] [place] [address], [place] [address] Jun, [facility] [address] [id number] [address] [place] [address], [place] [address] Jun, [facility] [address] [id number] [address] [place] [address], [place] [address] May, [facility] [address] [id number] [address] [place] [address], [place] [address] 25 May, 2012 [facility] [address] [id number] [address] [place] [address], [place] [address] 19 May, 2012 [facility] [address] [id number] [address] [place] [address], [place] [address] 17 May, 2012 [facility] [address] [id number] [address] [place] [address], [place] [address] 11 May, 2012 [facility] [address] [id number] [address] [place] [address], [place] [address] 10 May, 2012 [facility] [address] [id number] [address] [place] [address], [place] [address] 09 May, 2012 [facility] [address] [id number] [address] [place] [address], [place] [address] 05 May, 2012 [facility] [address] [id number] [address] [place] [address], [place] [address] Apr, [facility] [address] [id number] [address] [place] [address], [place] [address] Apr, [facility] [address] [id number] [address] [place] [address], [place] [address] Apr, [facility] [address] [id number] [address] [place] [address], [place] [address] Apr, [facility] [address] [id number] [address] [place] [address], [place] [address] Apr, [facility] [address] [id number] [address] [place] [address], [place] [address] Mar, [facility] [address] [id number] [address] [place] [address], [place] [address] Mar, [facility] [address] [id number] [address] [place] [address], [place] [address] Mar, [facility] [address] [id number] [address] [place] [address], [place] [address] Mar, [facility] [address] [id number] [address] [place] [address], [place] [address] Mar, [facility] [address] [id number] [address] [place] [address], [place] [address] Mar, [facility] [address] [id number] [address] [place] [address], [place] [address] Mar, [facility] [address] [id number] [address] [place] [address], [place] [address] Mar, [facility] [address] [id number] [address] [place] [address], [place] [address] Feb, [facility] [address] [id number] [address] [place] [address], [place] [address] Feb, [facility] [address] [id number] [address] [place] [address], [place] [address] January, [facility] [address] [id number] [address] [place] [address], [place] [address] January, [facility] [address] [id number] [address] [place] [address], [place] [address] Dec, [facility] [address] [id number] [address] [place] [address], [place] [address] Dec, [facility] [address] [id number] [address] [place] [address], [place] [address] Nov, [facility] [address] [id number] [address] [place] [address], [place] [address] Nov, [facility] [address] [id number] [address] [place] [address], [place] [address] Nov, [facility] [address] [id number] [address] [place] [address], [place] [address] Nov, [facility] [address] [id number] [address] [place] [address], [place] [address] Oct, [facility] [address] [id number] [address] [place] [address], [place] [address] Oct, 2012 [facility] [address] [id number] [address] [place] [address], [place] [address] Oct, [facility] [address] [id number] [address] [place] [address], [place] [address] Oct, 2012 [facility] [address] [id number] [address] [place] [address], [place] [address] 16 Oct, 2012 [facility] [address] [id number] [address] [place] [address], [place] [address] 14 Oct, 2012 [facility] [address] [id number] [address] [place] [address], [place] [address] 08 Oct, 2012 [facility] [address] [id number] [address] [place] [address], [place] [address] 07 Oct, 2012 [facility] [address] [id number] [address] [place] [address], [place] [address] 03 Oct, 2012 [facility] [address] [id number] [address] [place] [address], [place] [address] Sep, [facility] [address] [id number] [address] [place] [address], [place] [address] Sep, [facility] [address] [id number] [address] [place] [address], [place] [address] Sep, [facility] [address] [id number] [address] [place] [address], [place] [address] Sep, [facility] [address] [id number] [address] [place] [address], [place] [address] Sep, [facility] [address] [id number] [address] [place] [address], [place] [address] Sep, [facility] [address] [id number] [address] [place] [address], [place] [address] Sep, [facility] [address] [id number] [address] [place] [address], [place] [address] Sep, [facility] [address] [id number] [address] [place] [address], [place] [address] Aug, [facility] [address] [id number] [address] [place] [address], [place] [address] Aug, [facility] [address] [id number] [address] [place] [address], [place] [address] Aug, [facility] [address] [id number] [address] [place] [address], [place] [address] Aug, [facility] [address] [id number] [address] [place] [address], [place] [address] Aug, [facility] [address] [id number] [address] [place] [address], [place] [address] Aug, [facility] [address] [id number] [address] [place] [address], [place] [address] Aug, [facility] [address] [id number] [address] [place] [address], [place] [address] Aug, [facility] [address] [id number] [address] [place] [address], [place] [address] Jul, [facility] [address] [id number] [address] [place] [address], [place] [address] Jul, [facility] [address] [id number] [address] [place] [address], [place] [address] Jul, [facility] [address] [id number] [address] [place] [address], [place] [address] Jul, [facility] [address] [id number] [address] [place] [address], [place] [address] Jul, [facility] [address] [id number] [address] [place] [address], [place] [address] Jul, [facility] [address] [id number] [address] [place] [address], [place] [address] Jun, [facility] [address] [id number] [address] [place] [address], [place] [address] Jun, [facility] [address] [id number] [address] [place] [address], [place] [address] Jun, [facility] [address] [id number] [address] [place] [address], [place] [address] Jun, [facility] [address] [id number] [address] [place] [address], [place] [address] Jun, [facility] [address] [id number] [address] [place] [address], [place] [address] Jun, [facility] [address] [id number] [address] [place] [address], [place] [address] Jun, [facility] [address] [id number] [address] [place] [address], [place] [address] Jun, [facility] [address] [id number] [address] [place] [address], [place] [address] 10 Jun, 2012 [facility] [address] [id number] [address] [place] [address], [place] [address] 26 May, 2012 [facility] [address] [id number] [address] [place] [address], [place] [address] 24 May, 2012 [facility] [address] [id number] [address] [place] [address], [place] [address] 18 May, 2012 [facility] [address] [id number] [address] [place] [address], [place] [address] 30 Apr, 2012 [facility] [address] [id number] [address] [place] [address], [place] [address] 29 Apr, 2012 [facility] [address] [id number] [address] [place] [address], [place] [address] Apr, [facility] [address] [id number] [address] [place] [address], [place] [id number] 14 Apr, 2012 [facility] [address] [id number] [address] [place] [address], [place] [address] Apr, [facility] [address] [id number] [address] [place] [address], [place] [address] Apr, [facility] [address] [id number] [address] [place] [address], [place] [address] Mar, [facility] [address] [id number] [address] [place] [address], [place] [address] Mar, [facility] [address] [id number] [address] [place] [address], [place] [address] Mar, [facility] [address] [id number] [address] [place] [address], [place] [address] Mar, [facility] [address] [id number] [address] [place] [address], [place] [address] Feb, [facility] [address] [id number] [address] [place] [address], [place] [address] Feb, [facility] [address] [id number] [address] [place] [address], [place] [address] Feb, [facility] [address] [id number] [address] [place] [address], [place] [address] Feb, [facility] [address] [id number] [address] [place] [address], [place] [address] Feb, [facility] [address] [id number] [address] [place] [address], [place] [address] January, [facility] [address] [id number] [address] [place] [address], [place] [address] January, [facility] [address] [id number] [address] [place] [address], [place] [address] January, [facility] [address] [id number] [address] [place] [address], [place] [address] January, [facility] [address] [id number] [address] [place] [address], [place] [address] January, [facility] [address] [id number] [address] [place] [address], [place] [address] January, [facility] [address] [id number] [address] [place] [address], [place] [address] 24 Dec, 2011 [facility] [address] [id number] [address] [place] [address], [place] [address] 24 Dec, 2011 [facility] [address] [id number] [address] [place] [address], [place] [address] 17 Dec, 2011 [facility] [address] [id number] [address] [place] [address], [place] [id number] 09 Dec, 2011 [facility] [address] [id number] [address] [place] [address], [place] [address] 06 Dec, 2011 [facility] [address] [id number] [address] [place] [address], [place] [address] 27 Nov, 2011 [facility] [address] [id number] [address] [place] [address], [place] [id number] 14 Nov, 2011 [facility] [address] [id number] [address] [place] [address], [place] [id number] 12 Nov, 2011 [facility] [address] [id number] [address] [place] [address], [place] [address] 07 Nov, 2011 [facility] [address] [id number] [address] [place] [address], [place] [id number] 29 Oct, 2011 [facility] [address] [id number] [address] [place] [address], [place] [id number] 28 Oct, 2011 [facility] [address] [id number] [address] [place] [address], [place] [address] 24 Oct, 2011 [facility] [address] [id number] [address] [place] [address], [place] [address] 13 Oct, 2011 [facility] [address] [id number] [address] [place] [address], [place] [address] 08 Oct, 2011 [facility] [address] [id number] [address] [place] [address], [place] [address] Sep, [facility] [address] [id number] [address] [place] [address], [place] [address] Sep, [facility] [address] [id number] [address] [place] [address], [place] [address] Sep, [facility] [address] [id number] [address] [place] [address], [place] [address] Sep, [facility] [address] [id number] [address] [place] [address], [place] [address] Sep, [facility] [address] [id number] [address] [place] [address], [place] [address] Sep, [facility] [address] [id number] [address] [place] [address], [place] [id number] Aug, [facility] [address] [id number] [address] [place] [address], [place] [address] Aug, [facility] [address] [id number] [address] [place] [id number] Aug, [facility] [address] [id number] [address] [place] [address], [place] [address] Jul, [facility] [address] [id number] [address] [place] [address] Jul, [facility] [address] [id number] [address] [place] [address] Jul, [facility] [address] [id number] [address] [place] [id number] Jul, [facility] [address] [id number] [address] [place] [address], [place] [address] Jun, [facility] [facility] [address] [id number] [address] [place] [address], [place] [address] Jun, [facility] [address] [id number] [address] [place] [id number] Jun, [facility] [address] [id number] [address] [place] [id number] 10 Jun, 2011 [facility] [address] [id number] [address] [place] [address], [place] [id number] 10 Jun, 2011 [facility] [address] [id number] [address] [place] [address], [place] [id number] 10 Jun, 2011 [facility] [address] [id number] [address] [place] [address], [place] [id number] 11 Mar, 2011 [facility] [address] [id number] [address] [place] [address], [place] [id number] 18 Dec, 2010 [facility] [address] [id number] [address] [place] [address], [place] [id number] 11 Dec, 2010 [facility] [address] [id number] [address] [place] [address], [place] [id number] 18 Nov, 2010 [facility] [address] [id number] [address] [place] [address], [place] [id number] 16 Nov, 2010 [facility] [address] [id number] [address] [place] [address], [place] [id number] 10 Sep, 2010 [facility] [address] [id number] [address] [place] [address], [place] [id number] 31 Aug, 2010 [facility] [address] [id number] [address] [place] [address], [place] [id number] 29 Aug, 2010 [facility] [address] [id number] [address] [place] [address], [place] [id number] 29 Aug, 2010 [facility] [address] [id number] [address] [place] [address], [place] [id number] 29 Aug, 2010 [facility] [address] [id number] [address] [place] [address], [place] [id number] 27 Aug, 2010 [facility] [address] [id number] [address] [place] [address], [place] [id number] 14 Aug, 2010 [facility] [address] [id number] [address] [place] [address], [place] [id number] 08 Aug, 2010 [facility] [address] [id number] [address] [place] [address], [place] [id number] 08 Aug, 2010 [facility] [address] [id number] [address] [place] [address], [place] [address] Aug, [facility] [address] [id number] [address] [place] [address], [place] [id number] Aug, [facility] [address] [id number] [address] [place] [address], [place] [address] Aug, [facility] [address] [id number] [address] [place] [address], [place] [address] Aug, [facility] [address] [id number] [address] [place] [address], [place] [address] Jul, [facility] [address] [id number] [address] [place] [address], [place] [address] Jul, [facility] [address] [id number] [address] [place] [address], [place] [id number] Jul, [facility] [address] [id number] [address] [place] [address], [place] [id number] Jul, [facility] [address] [id number] [address] [place] [address], [place] [address] Jul, [facility] [address] [id number] [address] [place] [address], [place] [address] Jul, [facility] [address] [id number] [address] [place] [address], [place] [address] Jun, [facility] [address] [id number] [address] [place] [address], [place] [address] Jun, [facility] [address] [id number] [address] [place] [address], [place] [address] Jun, [facility] [address] [id number] [address] [place] [address], [place] [address] Jun, [facility] [address] [id number] [address] [place] [address], [place] [id number] 16 Apr, 2010 [facility] [address] [id number] [address] [place] [address], [place] [address] Mar, [facility] [address] [id number] [address] [place] [address], [place] [id number] Feb, [facility] [address] [id number] [address] [place] [address], [place] [address] January, [facility] [address] [id number] [address] [place] [address], [place] [address] 15 Dec, 2009 [facility] [address] [id number] [address] [place] [address], [place] [address] Nov, [facility] [address] [id number] [address] [place] [address], [place] [address] Aug, [facility] [address] [id number] [address] [place] [address], [place] [address] Aug, [facility] [address] [id number] [address] [place] [address] Aug, [facility] [address] [id number] [address] [place] [address] Jul, [facility] [address] [id number] [address] [place] [address] Jul, [facility] [address] [id number] [address] [place] [id number] Jul, [facility] [address] [id number] [address] [place] [id number] 30 Jun, 2009 [facility] [address] [id number] [address] [place] [address], [place] [id number] 29 Jun, 2009 [facility] [address] [id number] [address] [place] [address] Jun, [facility] [address] [id number] [address] [place] [id number] 22 Jun, 2009 [facility] [address] [id number] [address] [place] [address] Jun, [facility] [address] [facility] [id number] [address] [place] [address] Jun, [facility] [address] [facility] [id number] [address] [place] [address] Apr, [facility] [address] [facility] [id number] [address] [place] [address] Apr, [facility] [address] [facility] [id number] [address] [place] [address] Feb, [facility] [address] [facility] [id number] [address] [place] [address] January, [facility] [address] [facility] [id number] [address] [place] [address] Dec, IMMUNIZATIONS No Known Immunizations SOCIAL HISTORY [...] urinate 09/16/15 Hospitalization History [facility] 2000's Hospitalization History hyperkalemia 10/2017 Hospitalization History fluid in lung
--- OUTSIDE RECORDS SUMMARY | 2020-03-01 17:52 | XMS REPORT ---
Author Author Michele Verduzco Doctor Organization [facility] Address Unknown Phone Unavailable Care Team Providers [employer] Loader Name Role Phone Migration, Doctor Unavailable Unavailable PROBLEMS Type Condition ICD9-CM Code [id number] Code Onset Dates Condition S tatus SNOMED Code Problem Leukocytosis D72.829 Active 9124831 06 Problem Bipolar I disorder, most recent episode (or curr ent) mixed, moderate F31.62 Active 66639748 Problem Reactive airway disease J45.909 Active 538822554477 Problem Anxiety F41.9 Active 32460622 Problem Insomnia, unspecified type G47.00 Act sharon 372160526 Problem Essential hypertension I10 Active 09311434 Problem Morbid obesity E66.01 Active 25575 6002 Problem Skin cancer C44.90 Active 82609269 7 Problem DM neuro manif type II E11.49 Active 37563871 Problem Mild cognitive impairment G31.84 Acti ve 942524173 Problem Benign prostatic hyperplasia with lower urinary tract symptoms, unspecified morphology N40.1 Active 28960 6007 Problem Chronic pain G89.29 Active 6352575 1 Problem Diabetes E11.9 Active 49456125 Problem Retinal edema H35.81 Active 086890 6 Problem Anemia of chronic illness D63.8 Acti ve 931387027 Problem Falling R29.6 Active 255345674 Problem Pressure ulcer of other site, stage 3 L89.893 Active 395726317 Problem 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 Active 100184426 Problem Eye exam abnormal R93.8 Active 16 6115650 Problem Pure hypercholesterolemia E78.00 Acti ve 693683440 Problem Dysuria R30.0 Active 58900143 Problem Bipolar disorder, in partial remission, most rec ent episode depressed F31.75 Active 10689097 Problem Hypokalemia E87.6 Active 23934318 Problem Other iron deficiency anemia D50.8 A ctive 99188363 Problem Eustachian tube dysfunction, unspecified laterality H69.80 Active 10483629 Problem Primary osteoarthritis of right knee M17.11 Active 487602228356496 Problem Cough R05 Active 66725620 Problem Bipolar disorder F31.9 Active 137 05561 Problem Chronic diastolic (congestive) heart failure I50.3 2 Active 867550955 Problem Psychophysiological insomnia F51.04 A ctive 461160298 Problem Gastroesophageal reflux disease without esophagitis K21.9 Active 854381726 Problem Polyneuropathy associated with underlying disease G63 Active 573530872 Problem Other secondary acute gout, 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 0 Active 697140904 Problem Diabetic polyneuropathy associated with type 2 d iabetes mellitus E11.42 Active 21246323 Problem Chronic lymphocytic leukemia C91.10 A ctive 95644834 Problem Bilateral primary osteoarthritis of knee M17.0 Active 810964583 Problem Type 2 diabetes mellitus with diabetic neuropathy, uns pecified E11.40 Active 75065823 Problem FDC (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 Z79.4 Active 519664424 Problem Lymphocytosis D72.820 Active 915724 09 Problem Mood disorder F39 Active 736980 05 Problem Bipolar I disorder, most recent episode depressed, moderat e F31.32 Active 688222054 ALLERGIES No Information ENCOUNTERS Encounter Location Date Diagnosis [facility] [address] [facility] [id number] [address] [place] [phone] Dec, [facility] [address] [facility] [id number] [address] [place] [phone] 17 Dec, 2019 Chronic pain G89.29 [facility] [address] [facility] [id number] [address] [place] [phone] 13 Dec, 2019 [facility] [address] [facility] [id number] [address] [place] [phone] Dec, [facility] [address] [facility] [id number] [address] [place] [phone] 07 Dec, 2019 Gastroesophageal reflux dise ase without esophagitis K21.9 and Pure hypercholesterolemia E78.00 [facility] [address] [facility] [id number] [address] [place] [phone] Dec, Mood disorder F39 [facility] [address] [facility] [id number] [address] [place] [address] Nov, Other secondary acute gout, 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 [facility] [address] [id number] [address] [place] [phone] Nov, Gastroesophageal reflux dise ase without esophagitis K21.9 [facility] [address] [id number] [address] [place] [phone] Nov, Chronic pain G89.29 [facility] [address] [facility] [id number] [address] [place] [phone] Nov, Bipolar I disorder, most rec ent episode depressed, moderate F31.32 ; Anxiety F41.9 and Mild cognitive impairment G31.84 [facility] [address] [facility] [id number] [address] [place] [phone] Nov, [facility] [address] [facility] [id number] [address] [place] [phone] Nov, Syncope, unspecified syncope type R55 [facility] [address] [facility] [id number] [address] [place] [phone] Nov, Mood disorder F39 [facility] [address] [id number] [address] [place] [phone] Oct, Chronic pain G89.29 [facility] [address] [facility] [id number] [address] [place] [phone] Oct, [facility] [address] [id number] [address] [place] [phone] Oct, Mood disorder F39 [facility] [address] [id number] [address] [place] [phone] Oct, [facility] [address] [facility] [id number] [address] [place] [phone] Oct, Bipolar disorder, in partial remission, most recent episode depressed F31.75 and Mild cognitive impairment G31.84 [facility] [address] [facility] [id number] [address] [place] [phone] Oct, Mood disorder F39 [facility] [address] [id number] [address] [place] [phone] Sep, [facility] [address] [id number] [address] [place] [phone] Sep, Mood disorder F39 [facility] [address] [id number] [address] [place] [phone] 13 Sep, 2019 Bipolar disorder, in partial remission, most recent episode depressed F31.75 and Mild cognitive impairment G31.84 [facility] [address] [id number] [address] [place] [phone] Sep, Mood disorder F39 [facility] [address] [id number] [address] [place] [phone] Sep, [facility] [address] [id number] [address] [place] [address] Sep, Mood disorder F39 [facility] [address] [id number] [address] [place] [phone] Sep, [facility] [address] [id number] [address] [place] [phone] Aug, Mood disorder F39 [facility] [address] [id number] [address] [place] [phone] Aug, [facility] [address] [id number] [address] [place] [phone] Aug, [facility] [address] [id number] [address] [place] [phone] Aug, [facility] [address] [id number] [address] [place] [phone] Aug, [facility] [address] [id number] [address] [place] [phone] Aug, [facility] [address] [id number] [address] [place] [phone] Aug, [facility] [address] [id number] [address] [place] [phone] Aug, [facility] [address] [id number] [address] [place] [address] Aug, Essential hypertension I10 [facility] [address] [id number] [address] [place] [phone] Aug, Bipolar disorder, in partial remission, most recent episode depressed F31.75 and Mild cognitive impairment G31.84 [facility] [address] [id number] [address] [place] [phone] Aug, Mood disorder F39 [facility] [address] [id number] [address] [place] [phone] Aug, [facility] [address] [id number] [address] [place] [address] Aug, Bipolar disorder, in partial remission, most recent episode depressed F31.75 and Mild cognitive impairment G31.84 [facility] [address] [id number] [address] [place] [address] Jul, Bipolar disorder, in partial remission, most recent episode depressed F31.75 and Mild cognitive impairment G31.84 [facility] [address] [id number] [address] [place] [phone] Jul, Psychophysiological insomnia F51.04 [facility] [address] [id number] [address] [place] [phone] Jul, [facility] [address] [id number] [address] [place] [phone] Jul, [facility] [address] [id number] [address] [place] [address] Jul, [facility] [address] [id number] [address] [place] [phone] Jul, [facility] [address] [id number] [address] [place] [phone] Jul, [facility] [address] [id number] [address] [place] [phone] Jul, [place] [place] [address] [facility] [id number] [address] [place] [phone] Jul, Bipolar disorder, in partial remission, most recent episode depressed F31.75 and Mild cognitive impairment G31.84 [place] [address] [id number] [address] [place] [phone] Jul, Chronic pain G89.29 ; Diabet es E11.9 ; Essential hypertension I10 ; Ill feeling R68.89 ; Local infection of the skin and subcutaneous tissue, unspecified L08.9 and Other injury of unspecified body region, initial encounter T14.8XXA [facility] [address] [facility] [id number] [address] [place] [phone] Jun, Bipolar disorder, in partial remission, most recent episode depressed F31.75 and Mild cognitive impairment G31.84 [facility] [place] [address] [facility] [id number] [address] [place] [phone] Jun, [facility] [place] [address] [facility] [id number] [address] [place] [phone] Jun, Bipolar disorder, in partial remission, most recent episode depressed F31.75 and Mild cognitive impairment G31.84 [facility] [place] [address] [facility] [id number] [address] [place] [phone] Jun, Psychophysiological insomnia F51.04 [facility] [place] [address] [facility] [id number] [address] [place] [address] Jun, Psychophysiological insomnia F51.04 ; Chronic pain G89.29 ; Bipolar I disorder, most recent episode (or current) mixed, moderate F31.62 ; 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 ; Polyneuropathy associated with underlying disease G63 ; Type 2 diabetes mellitus with diabetic neuropathy, unspecified E11.40 ; 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.4 and Hyperglycemia R73.9 [place] [id number] [facility] [id number] [address] [place] [phone] Jun, Bipolar disorder, in partial remission, most recent episode depressed F31.75 and Mild cognitive impairment G31.84 [facility] [address] [id number] [address] [place] [phone] Jun, [facility] [address] [id number] [address] [place] [phone] Jun, Bipolar disorder F31.9 [facility] [address] [id number] [address] [place] [phone] May, Bipolar disorder, in partial remission, most recent episode depressed F31.75 and Mild cognitive impairment G31.84 [facility] [address] [id number] [address] [place] [phone] May, [facility] [address] [id number] [address] [place] [phone] Apr, Chronic pain G89.29 and Bipo lar disorder F31.9 [facility] [address] [facility] [id number] [address] [place] [phone] Mar, Bipolar disorder F31.9 and C hronic pain G89.29 [facility] [address] [id number] [address] [place] [phone] Feb, Bipolar disorder F31.9 [facility] [address] [id number] [address] [place] [phone] Feb, Cellulitis of right upper ex tremity L03.113 and Skin abrasion T14.8XXA [facility] [address] [id number] [address] [place] [phone] Feb, Bipolar disorder, in partial remission, most recent episode depressed F31.75 and Mild cognitive impairment G31.84 [facility] [address] [facility] [id number] [address] [place] [phone] Feb, Chronic pain G89.29 [facility] [address] [facility] [id number] [address] [place] [phone] Feb, Bipolar disorder, in partial remission, most recent episode depressed F31.75 and Mild cognitive impairment G31.84 [facility] [address] [id number] [address] [place] [phone] January, Bipolar disorder, in partial remission, most recent episode depressed F31.75 and Mild cognitive impairment G31.84 [facility] [address] [id number] [address] [place] [phone] January, Chronic pain G89.29 and Bipo lar disorder F31.9 [facility] [address] [id number] [address] [place] [phone] January, Bipolar disorder, in partial remission, most recent episode depressed F31.75 and Mild cognitive impairment G31.84 [facility] [address] [id number] [address] [place] [phone] Dec, [facility] [address] [id number] [address] [place] [phone] Dec, Chronic pain G89.29 and Bipo lar disorder F31.9 [facility] [address] [id number] [address] [place] [phone] Dec, Edema of both lower extremit ies R60.0 [facility] [address] [id number] [address] [place] [phone] Dec, Bipolar disorder F31.9 [facility] [address] [id number] [address] [place] [phone] Dec, Bipolar disorder, in partial remission, most recent episode depressed F31.75 and Mild cognitive impairment G31.84 [facility] [address] [id number] [address] [place] [phone] Nov, [facility] [address] [id number] [address] [place] [phone] Nov, Chronic pain G89.29 [facility] [address] [id number] [address] [place] [address] Nov, Bipolar disorder, in partial remission, most recent episode depressed F31.75 and Mild cognitive impairment G31.84 [place] [address] [place] [id number] [address] [place] [phone] Nov, Bipolar disorder F31.9 [place] [address] [place] [id number] [address] [place] [phone] 04 Nov, 2018 Encounter for Medicare jordanaua [...] unspecified morphology N40.1 and Essential hypertension I10 [place] [id number] [address] [place] [phone] Oct, Chronic pain G89.29 [place] [address] [place] [id number] [address] [place] [phone] 18 Oct, 2018 Diabetes E11.9 [place] [id number] [address] [place] [phone] 11 Oct, 2018 Bipolar I disorder, most rec ent episode (or current) mixed, moderate F31.62 and Mild cognitive impairment G31.84 [place] [address] [place] [id number] [address] [place] [phone] 06 Oct, 2018 Bipolar I disorder, most rec ent episode (or current) mixed, moderate F31.62 and Mild cognitive impairment G31.84 [place] [address] [place] [id number] [address] [place] [phone] Sep, Bipolar I disorder, most rec ent episode (or current) mixed, moderate F31.62 and Mild cognitive impairment G31.84 [place] [address] [place] [id number] [address] [place] [phone] Sep, [place] [id number] [address] [place] [phone] Sep, Diabetes E11.9 ; Hypoxia R09 .02 ; Hyperglycemia R73.9 ; Therapeutic drug monitoring Z51.81 ; BMI 50.0-59.9, adult Z68.43 and Skin cancer C44.90 [facility] [address] [facility] [id number] [address] [place] [phone] Sep, Chronic pain G89.29 [facility] [address] [facility] [id number] [address] [place] [phone] Sep, Bipolar I disorder, most rec ent episode (or current) mixed, moderate F31.62 [facility] [address] [facility] [id number] [address] [place] [phone] Sep, [place] [id number] [facility] [id number] [address] [place] [phone] Sep, [facility] [address] [facility] [id number] [address] [place] [phone] Aug, Chronic pain G89.29 [facility] [address] [facility] [id number] [address] [place] [phone] Aug, Bipolar I disorder, most rec ent episode (or current) mixed, moderate F31.62 [place] [address] [facility] [id number] [address] [place] [phone] Aug, Bipolar I disorder, most rec ent episode (or current) mixed, moderate F31.62 and Mild cognitive impairment G31.84 [facility] [address] [facility] [id number] [address] [place] [address] Jul, [facility] [address] [facility] [id number] [address] [place] [address] Jul, Chronic pain G89.29 [facility] [address] [facility] [id number] [address] [place] [address] Jul, Bipolar I disorder, most rec ent episode (or current) mixed, moderate F31.62 and Mild cognitive impairment G31.84 [place] [address] [place] [id number] [address] [place] [phone] Jul, Bipolar I disorder, most rec ent episode (or current) mixed, moderate F31.62 and MCI (mild cognitive impairment) G31.84 [facility] [address] [place] [id number] [address] [place] [phone] Jul, [facility] [address] [facility] [id number] [address] [place] [phone] Jul, [facility] [address] [place] [id number] [address] [place] [phone] Jul, Bipolar I disorder, most rec ent episode (or current) mixed, moderate F31.62 [place] [address] [place] [id number] [address] [place] [address] Jul, Chronic pain G89.29 [place] [address] [place] [id number] [address] [place] [address] Jun, Bipolar I disorder, most rec ent episode (or current) mixed, moderate F31.62 [place] [address] [place] [id number] [address] [place] [phone] Jun, Pre-procedure lab exam Z01.8 12 [place] [address] [place] [id number] [address] [place] [phone] Jun, [facility] [address] [place] [id number] [place] [address] [id number] Jun, [facility] [address] [place] [id number] [address] [place] [phone] Jun, [place] [address] [address] Jun, Forgetfulness R68.89 ; Pre-s yncope R55 ; Localized edema R60.0 ; Other iron deficiency anemia D50.8 and BMI 50.0-59.9, adult Z68.43 [place] [address] [place] [id number] [address] [place] [address] Jun, Chronic pain G89.29 [facility] [address] [facility] [id number] [address] [place] [phone] Jun, Chronic pain G89.29 [facility] [address] [facility] [id number] [address] [place] [phone] Jun, Bipolar I disorder, most rec ent episode (or current) mixed, moderate F31.62 [place] [address] [facility] [id number] [address] [place] [address] May, Chronic pain G89.29 [facility] [address] [facility] [id number] [address] [place] [address] Apr, [place] [address] [place] [id number] [address] [place] [phone] Apr, Chronic pain G89.29 [place] [address] [place] [id number] [address] [place] [phone] Apr, Primary osteoarthritis of ri ght knee M17.11 [facility] [address] [place] [id number] [address] [place] [phone] Mar, [place] [address] [place] [id number] [address] [place] [phone] Mar, BMI 50.0-59.9, adult Z68.43 and Bipolar disorder, in partial remission, most recent episode depressed F31.75 [place] [address] [place] [id number] [address] [place] [address] Mar, Diabetes E11.9 ; Pure hyperc holesterolemia E78.00 ; Essential hypertension I10 ; Nausea with vomiting, unspecified R11.2 and Headache, unspecified headache type R51 [place] [address] [facility] [id number] [address] [place] [phone] Mar, Bipolar I disorder, most rec ent episode (or current) mixed, moderate F31.62 [place] [address] [place] [id number] [address] [place] [phone] Mar, Bipolar I disorder, most rec ent episode (or current) mixed, moderate F31.62 [facility] [address] [id number] [address] [place] [phone] Mar, Chronic pain G89.29 [facility] [address] [facility] [id number] [address] [place] [phone] Mar, Bipolar I disorder, most rec ent episode (or current) mixed, moderate F31.62 [facility] [address] [facility] [id number] [address] [place] [phone] Feb, Bipolar I disorder, most rec ent episode (or current) mixed, moderate F31.62 [facility] [address] [facility] [id number] [address] [place] [address] Feb, Chronic pain G89.29 [facility] [address] [facility] [id number] [address] [place] [phone] Feb, Decubitus ulcer of right josselin t, stage 3 L89.893 and BMI 50.0-59.9, adult Z68.43 [facility] [address] [facility] [id number] [address] [place] [id number] Feb, Bipolar I disorder, most rec ent episode (or current) mixed, moderate F31.62 [facility] [address] [facility] [id number] [address] [place] [id number] Feb, [facility] [address] [facility] [id number] [address] [place] [id number] January, [facility] [address] [facility] [id number] [address] [place] [id number] January, Chronic pain G89.29 [facility] [address] [facility] [facility] [id number] [address] [place] [phone] January, Bipolar I disorder, most rec ent episode (or current) mixed, moderate F31.62 [facility] [address] [facility] [id number] [address] [place] [phone] January, Bipolar I disorder, most rec ent episode (or current) mixed, moderate F31.62 [place] [id number] [facility] [id number] [address] [place] [phone] Dec, Bipolar I disorder, most rec ent episode (or current) mixed, moderate F31.62 and BMI 50.0-59.9, adult Z68.43 [place] [address] [facility] [id number] [address] [place] [phone] Dec, Bipolar I disorder, most rec ent episode (or current) mixed, moderate F31.62 [place] [address] [facility] [id number] [address] [place] [address] Dec, Chronic pain G89.29 [place] [address] [place] [id number] [address] [place] [address] Dec, DM neuro manif type II E11.4 9 ; Right flank pain R10.9 ; 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 Z79.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 ; Encounter for medication monitoring Z51.81 and BMI 50.0-59.9, adult Z68.43 [place] [address] [facility] [id number] [address] [place] [phone] Dec, Bipolar I disorder, most rec ent episode (or current) mixed, moderate F31.62 [place] [address] [place] [id number] [address] [place] [phone] Nov, Bipolar I disorder, most rec ent episode (or current) mixed, moderate F31.62 [place] [id number] [facility] [id number] [address] [place] [phone] Nov, Chronic pain G89.29 [place] [address] [facility] [id number] [address] [place] [phone] Nov, Bipolar I disorder, most rec ent episode (or current) mixed, moderate F31.62 [place] [address] [facility] [id number] [address] [place] [phone] Nov, Hypokalemia E87.6 [place] [address] [address] Nov, Bipolar I disorder, most rec ent episode (or current) mixed, moderate F31.62 [place] [address] [address] Oct, Chronic pain G89.29 [place] [address] [address] Oct, BMI 50.0-59.9, adult Z68.43 and Bipolar I disorder, most recent episode (or current) mixed, moderate F31.62 [place] [address] [address] Oct, Bipolar I disorder, most rec ent episode (or current) mixed, moderate F31.62 [place] [address] [address] Oct, [place] [address] [address] Oct, Hypokalemia E87.6 [place] [address] [address] Oct, DM neuro manif type II E11.4 9 [place] [address] [address] Oct, Bipolar I disorder, most rec ent episode (or current) mixed, moderate F31.62 [place] [address] [address] Oct, Bipolar I disorder, most rec ent episode (or current) mixed, moderate F31.62 [place] [address] [address] 14 Oct, 2017 Hyperkalemia E87.5 ; Falling R29.6 ; BMI 50.0-59.9, adult Z68.43 and Acute left ankle pain M25.572 [place] [address] [address] 08 Oct, 2017 DM neuro manif type II E11.4 9 [place] [address] [address] Oct, [place] [address] [address] Sep, Chronic pain G89.29 [place] [address] [address] Sep, [place] [address] [address] Sep, Bilateral primary osteoarthr itis of knee M17.[address] [address] Sep, Generalized edema R60.[address] [address] Sep, Bipolar I disorder, most rec ent episode (or current) mixed, moderate F31.[address] [address] Sep, Hypoxia R09.02 ; Other hyper volemia E87.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 ; Anemia of chronic illness D63.8 and BMI 50.0- 59.9, adult Z68.[address] [address] Sep, [address] [address] Sep, Bipolar I disorder, most rec ent episode (or current) mixed, moderate F31.62 [place] [address] [address] Aug, Chronic pain G89.29 [place] [address] [place] [id number] [address] [place] [address] Aug, Generalized edema R60.1 [facility] [address] [place] [id number] [address] [place] [address] Aug, [facility] [address] [place] [id number] [address] [place] [address] Aug, [facility] [address] [place] [id number] [address] [place] [address] Aug, Bipolar I disorder, most rec ent episode (or current) mixed, moderate F31.62 [place] [address] [place] [id number] [address] [place] [address] Aug, Bipolar I disorder, most rec ent episode (or current) mixed, moderate F31.62 [place] [address] [address] Aug, Chronic pain G89.29 [place] [address] [place] [id number] [place] [address] Jul, Bipolar I disorder, most rec ent episode (or current) mixed, moderate F31.62 [place] [address] [place] [id number] [address] [place] [address] Jul, Bipolar I disorder, most rec ent episode (or current) mixed, moderate F31.62 and BMI 60.0-69.9, adult Z68.44 [place] [address] [place] [id number] [address] [place] [address] Jul, Bipolar I disorder, most rec ent episode (or current) mixed, moderate F31.62 [place] [address] [place] [id number] [address] [place] [address] Jul, Chronic pain G89.29 [facility] [address] [place] [id number] [address] [place] [address] Jul, Bipolar I disorder, most rec ent episode (or current) mixed, moderate F31.62 [place] [address] [facility] [id number] [address] [place] [phone] 18 Jun, 2017 Polyneuropathy associated wi th underlying disease G63 and Diabetes E11.9 [facility] [address] [facility] [id number] [address] [place] [phone] 16 Jun, 2017 Bipolar I disorder, most rec ent episode (or current) mixed, moderate F31.62 [facility] [address] [place] [id number] [address] [place] [address] 09 Jun, 2017 Chronic pain G89.29 [place] [address] [place] [id number] [address] [place] [address] May, Bipolar I disorder, most rec ent episode (or current) mixed, moderate F31.62 [place] [address] [place] [id number] [address] [place] [address] May, Bipolar I disorder, most rec ent episode (or current) mixed, moderate F31.62 [place] [address] [place] [id number] [address] [place] [address] May, Diabetic polyneuropathy asso ciated with type 2 diabetes mellitus E11.42 [place] [address] [facility] [id number] [address] [place] [phone] 18 May, 2017 Bipolar I disorder, most rec ent episode (or current) mixed, moderate F31.62 [place] [address] [place] [id number] [address] [place] [address] May, Bipolar I disorder, most rec ent episode (or current) mixed, moderate F31.62 [place] [address] [place] [id number] [address] [place] [address] May, Chronic pain G89.29 [facility] [address] [facility] [id number] [address] [place] [address] Apr, Bipolar I disorder, most rec ent episode (or current) mixed, moderate F31.62 [place] [address] [place] [id number] [address] [place] [address] Apr, [facility] [address] [id number] [address] [place] [address] Apr, Chronic pain G89.29 and DM n euro manif type II E11.49 [facility] [address] [id number] [address] [place] [address] Apr, [facility] [address] [id number] [address] [place] [phone] Apr, Bipolar I disorder, most rec ent episode (or current) mixed, moderate F31.62 [facility] [address] [id number] [address] [place] [address] Apr, Chronic pain G89.29 [facility] [address] [id number] [address] [place] [address] Apr, Iliotibial band syndrome, le ft M76.32 [facility] [address] [id number] [address] [place] [address] Apr, Bipolar I disorder, most rec ent episode (or current) mixed, moderate F31.62 [facility] [address] [id number] [address] [place] [phone] Mar, Bipolar I disorder, most rec ent episode (or current) mixed, moderate F31.62 [facility] [address] [facility] [id number] [address] [place] [address] Mar, Bipolar I disorder, most rec ent episode (or current) mixed, moderate F31.62 [facility] [address] [id number] [address] [place] [address] Mar, [facility] [address] [id number] [address] [place] [phone] Mar, Bipolar I disorder, most rec ent episode (or current) mixed, moderate F31.62 [facility] [address] [facility] [id number] [address] [place] [address] Mar, Chronic pain G89.29 [facility] [address] [facility] [id number] [address] [place] [phone] Mar, Bipolar I disorder, most rec ent episode (or current) mixed, moderate F31.62 [facility] [address] [facility] [id number] [address] [place] [address] Mar, Bipolar I disorder, most rec ent episode (or current) mixed, moderate F31.62 [facility] [address] [facility] [id number] [address] [place] [address] Mar, Acute pain of left knee M25. 562 ; Left hip pain M25.552 ; Generalized edema R60.1 and Tongue swelling R22.0 [facility] [address] [facility] [id number] [address] [place] [address] Mar, [facility] [address] [facility] [id number] [address] [place] [phone] Feb, Chronic pain G89.29 [facility] [address] [facility] [id number] [address] [place] [address] Feb, Diabetes E11.9 [facility] [address] [id number] [address] [place] [address] January, Chronic pain G89.29 [facility] [address] [facility] [id number] [address] [place] [address] January, [facility] [address] [facility] [id number] [address] [place] [phone] January, Bipolar I disorder, most rec ent episode (or current) mixed, moderate F31.62 [facility] [address] [facility] [id number] [address] [place] [address] Dec, Bipolar I disorder, most rec ent episode (or current) mixed, moderate F31.62 [facility] [address] [facility] [id number] [address] [place] [address] Dec, Chronic pain G89.29 [facility] [address] [facility] [id number] [address] [place] [phone] Dec, Bipolar I disorder, most rec ent episode (or current) mixed, moderate F31.62 [facility] [address] [facility] [id number] [address] [place] [address] Dec, Diabetes E11.9 ; Essential h ypertension I10 ; Chronic pain G89.29 and Morbid obesity E66.01 [facility] [address] [id number] [address] [place] [id number] Dec, [facility] [address] [facility] [id number] [address] [place] [phone] Dec, Bipolar I disorder, most rec ent episode (or current) mixed, moderate F31.62 [facility] [address] [facility] [id number] [address] [place] [address] Dec, Bipolar I disorder, most rec ent episode (or current) mixed, moderate F31.62 [facility] [address] [facility] [id number] [address] [place] [address] Nov, Chronic pain G89.29 [facility] [address] [facility] [id number] [address] [place] [phone] Nov, Bipolar I disorder, most rec ent episode (or current) mixed, moderate F31.62 [facility] [address] [facility] [id number] [address] [place] [phone] Nov, [facility] [address] [facility] [id number] [address] [place] [phone] Nov, Bipolar I disorder, most rec ent episode (or current) mixed, moderate F31.62 [facility] [address] [facility] [id number] [address] [place] [phone] Nov, Bipolar I disorder, most rec ent episode (or current) mixed, moderate F31.62 [facility] [address] [facility] [id number] [address] [place] [phone] Nov, [facility] [address] [facility] [id number] [address] [place] [phone] Nov, [facility] [address] [facility] [id number] [address] [place] [phone] Nov, [facility] [address] [facility] [id number] [address] [place] [address] Oct, Chronic pain G89.29 [facility] [address] [facility] [id number] [address] [place] [phone] Oct, Bipolar I disorder, most rec ent episode (or current) mixed, moderate F31.62 [facility] [address] [facility] [id number] [address] [place] [phone] Oct, [facility] [address] [facility] [id number] [address] [place] [address] Oct, Chronic pain G89.29 ; Diabet es E11.9 ; Anxiety F41.9 and 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 [facility] [address] [facility] [id number] [address] [place] [phone] Oct, [facility] [address] [facility] [id number] [address] [place] [address] Oct, Diabetes E11.9 [facility] [address] [facility] [id number] [address] [place] [address] Oct, Bipolar I disorder, most rec ent episode (or current) mixed, moderate F31.62 [facility] [address] [facility] [id number] [address] [place] [address] Sep, Chronic pain G89.29 [facility] [address] [facility] [id number] [address] [place] [address] Sep, Chronic pain G89.29 [facility] [address] [facility] [id number] [address] [place] [phone] Aug, Chronic pain G89.29 [facility] [address] [facility] [id number] [address] [place] [address] Jul, [facility] [address] [facility] [id number] [address] [place] [address] Jul, Diabetes E11.9 [facility] [address] [facility] [id number] [address] [place] [address] Jul, Chronic pain G89.29 [facility] [address] [facility] [id number] [address] [place] [phone] Jul, Bipolar I disorder, most rec ent episode (or current) mixed, moderate F31.62 [place] [address] [facility] [id number] [address] [place] [phone] Jun, Bipolar I disorder, most rec ent episode (or current) mixed, moderate F31.62 [place] [address] [facility] [id number] [address] [place] [address] Jun, [place] [address] [place] [id number] [address] [place] [phone] Jun, Bipolar I disorder, most rec ent episode (or current) mixed, moderate F31.62 [place] [address] [place] [id number] [address] [place] [phone] 30 May, 2016 Insomnia, unspecified type G 47.00 [place] [address] [facility] [id number] [address] [place] [address] May, Bipolar I disorder, most rec ent episode (or current) mixed, moderate F31.62 [place] [address] [facility] [id number] [address] [place] [phone] 14 May, 2016 [place] [address] [facility] [id number] [address] [place] [phone] 08 May, 2016 Bipolar I disorder, most rec ent episode (or current) mixed, moderate F31.62 [place] [address] [facility] [id number] [address] [place] [phone] 06 May, 2016 Diabetes E11.9 and Essential hypertension I10 [place] [address] [facility] [id number] [address] [place] [address] Apr, Chronic pain G89.29 [facility] [address] [facility] [id number] [address] [place] [phone] Apr, Bipolar I disorder, most rec ent episode (or current) mixed, moderate F31.62 [facility] [address] [facility] [id number] [address] [place] [phone] Apr, [facility] [address] [facility] [id number] [address] [place] [phone] Apr, [facility] [address] [facility] [id number] [address] [place] [address] Mar, Chronic pain G89.29 ; Headac he, unspecified headache type R51 ; Neuropathy G62.9 ; Pain of right hip joint M25.551 and Essential hypertension I10 [place] [address] [facility] [id number] [address] [place] [address] Mar, Chronic pain G89.29 [place] [address] [facility] [id number] [address] [place] [address] Mar, Bipolar I disorder, most rec ent episode (or current) mixed, moderate F31.62 [place] [address] [facility] [id number] [address] [place] [address] Feb, Bipolar I disorder, most rec ent episode (or current) mixed, moderate F31.62 and Insomnia, unspecified type G47.00 [place] [address] [facility] [id number] [address] [place] [address] Feb, Chronic pain G89.29 [place] [address] [facility] [id number] [address] [place] [phone] Feb, Bipolar I disorder, most rec ent episode (or current) mixed, moderate F31.62 [place] [address] [facility] [id number] [address] [place] [phone] January, Bipolar I disorder, most rec ent episode (or current) mixed, moderate F31.62 [place] [address] [facility] [id number] [address] [place] [address] January, Chronic pain G89.29 [facility] [address] [facility] [id number] [address] [place] [address] January, Chronic pain G89.29 and Esse ntial hypertension I10 [facility] [address] [facility] [id number] [address] [place] [phone] January, Bipolar I disorder, most rec ent episode (or current) mixed, moderate F31.62 [facility] [address] [facility] [id number] [address] [place] [phone] Dec, [facility] [address] [facility] [id number] [address] [place] [phone] Dec, [facility] [address] [facility] [id number] [address] [place] [phone] Dec, [facility] [address] [place] [id number] [address] [place] [phone] Dec, [facility] [address] [facility] [id number] [address] [place] [phone] Nov, Reactive airway disease J45. 909 [facility] [address] [place] [id number] [address] [place] [phone] Nov, [facility] [address] [facility] [id number] [address] [place] [phone] Nov, [facility] [address] [facility] [id number] [address] [place] [phone] Nov, [facility] [address] [facility] [id number] [address] [place] [phone] Nov, [facility] [address] [place] [id number] [address] [place] [address] Nov, Onychomycosis B35.1 ; Hammer toe M20.40 ; [place] or callus L84 and DM neuro manif type II E11.49 [facility] [address] [facility] [id number] [address] [place] [address] Nov, Chronic pain G89.29 ; Leukoc ytosis D72.829 and Diabetes E11.9 [place] [address] [address] Nov, [place] [address] [address] Oct, Bronchitis J40 [place] [address] [address] Oct, [place] [address] [address] Oct, [place] [address] [address] Oct, Mastoiditis, unspecified lat erality H70.90 and Type 2 diabetes mellitus with complication E11.8 [place] [address] [id number] Sep, [place] [address] [address] Sep, Dysuria R30.0 ; Cough R05 ; Benign prostatic hyperplasia with lower urinary tract symptoms, unspecified morphology N40.1 ; Hypokalemia E87.6 and Eustachian tube dysfunction, unspecified laterality H69.80 [place] [address] [address] Sep, Moderate mixed bipolar I dis order F31.62 [place] [address] [address] Sep, Hypokalemia E87.6 [place] [address] [address] Sep, [place] [address] [address] Sep, Upper respiratory tract infe ction, unspecified type J06.9 [place] [id number] [id number] [address] [place] [id number] Aug, [facility] [address] [id number] [address] [place] [id number] Aug, Dysuria R30.0 [facility] [address] [id number] [address] [place] [id number] Aug, [facility] [address] [id number] [address] [place] [id number] Jul, [facility] [address] [id number] [address] [place] [id number] Jul, [facility] [address] [id number] [address] [place] [id number] Jul, [facility] [address] [id number] [address] [place] [id number] Jul, [facility] [address] [id number] [address] [place] [id number] Jun, [facility] [address] [id number] [address] [place] [phone] Jun, [facility] [address] [id number] [address] [place] [id number] Jun, [facility] [address] [id number] [address] [place] [id number] May, [facility] [address] [id number] [address] [place] [id number] May, Bipolar I disorder, most rec ent episode (or current) mixed, moderate 296.62 [facility] [address] [id number] [address] [place] [id number] 16 May, 2015 [facility] [address] [id number] [address] [place] [id number] 02 May, 2015 Bipolar I disorder, most rec ent episode (or current) mixed, moderate 296.62 and Major depressive disorder, recurrent episode, severe, specified as with psychotic behavior 296.34 [facility] [address] [facility] [id number] [address] [place] [id number] May, Bipolar I disorder, most rec ent episode (or current) mixed, moderate 296.62 [facility] [address] [facility] [id number] [address] [place] [phone] May, [facility] [address] [id number] [address] [place] [phone] Apr, [facility] [address] [id number] [address] [place] [phone] Apr, [facility] [id number] [place] [address] Apr, Unspecified disorder of kidn ey and ureter 593.9 and Diabetes mellitus type 2, uncontrolled 250.02 [facility] [address] [id number] [address] [place] [id number] Apr, [facility] [address] [id number] [address] [place] [phone] Apr, [facility] [address] [id number] [address] [place] [address] Apr, [facility] [address] [id number] [address] [place] [id number] Apr, [facility] [address] [id number] [address] [place] [phone] Apr, Diabetes mellitus type II, u ncontrolled 250.02 [facility] [address] [facility] [id number] [address] [place] [id number] Apr, [facility] [address] [id number] [address] [place] [id number] Mar, [facility] [address] [facility] [id number] [address] [place] [phone] Mar, [facility] [address] [id number] [address] [place] [phone] Mar, [facility] [address] [id number] [address] [place] [address] Mar, Major depressive disorder, r ecurrent episode, severe, specified as with psychotic behavior 296.34 and Bipolar I disorder, most recent episode (or current) mixed, moderate 296.62 [facility] [address] [place] [id number] [address] [place] [address] Mar, Diabetes 250.00 ; Anuria 788 .5 ; Nausea and vomiting 787.01 and Diarrhea 787.91 [facility] [address] [id number] [address] [place] [address] Mar, Diabetes 250.00 [facility] [address] [id number] [address] [place] [phone] Mar, [facility] [address] [id number] [address] [place] [address] Mar, Diabetes 250.00 [facility] [address] [id number] [address] [place] [phone] Mar, [facility] [address] [id number] [address] [place] [phone] Mar, [facility] [address] [id number] [address] [place] [phone] Mar, [facility] [address] [id number] [address] [place] [phone] Mar, [facility] [address] [id number] [address] [place] [address] Mar, Bipolar I disorder, most rec ent episode (or current) mixed, moderate 296.62 and Major depressive disorder, recurrent episode, severe, specified as with psychotic behavior 296.34 [facility] [address] [id number] [address] [place] [address] Mar, Magnesium deficiency 275.2 ; Hypokalemia 276.8 ; Nausea & vomiting 787.01 and Diabetes mellitus type 2, uncontrolled 250.02 [place] [address] [id number] [address] [place] [phone] Feb, [facility] [address] [address] Feb, Bipolar I disorder, most rec ent episode (or current) mixed, moderate 296.62 [facility] [address] [id number] [place] [address] Feb, Nausea and vomiting 787.01 ; Left elbow pain 719.42 ; Anuria 788.5 and Diabetes 250.00 [facility] [address] [id number] [place] [address] Feb, [facility] [address] [address] Feb, Hypopotassemia 276.8 and Hyp okalemia 276.8 [place] [address] [address] Feb, Hypopotassemia 276.8 and Hyp okalemia 276.8 [facility] [address] [id number] [address] [place] [phone] Feb, Seborrheic keratoses 702.19 [facility] [address] [id number] [address] [place] [address] Feb, Hypopotassemia 276.8 and Low magnesium levels 275.2 [facility] [address] [id number] [address] [place] [phone] January, [facility] [address] [id number] [address] [place] [phone] January, [facility] [address] [address] January, [facility] [address] [id number] [address] [place] [address] January, Scalp lesion 709.9 [place] [address] [address] January, [facility] [address] [id number] [address] [place] [id number] 30 Dec, 2014 Tear of medial cartilage or meniscus of knee, current 836.0 and 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 [facility] [address] [id number] [address] [place] [address], [place] [address] Dec, [facility] [address] [id number] [address] [place] [id number] Dec, [facility] [address] [id number] [address] [place] [phone] Dec, Squamous cell carcinoma, 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 [facility] [address] [id number] [address] [place] [phone] 14 Dec, 2014 [facility] [address] [id number] [address] [place] [phone] Dec, [facility] [address] [id number] [address] [place] [phone] Nov, [facility] [address] [id number] [address] [place] [phone] Nov, [facility] [address] [id number] [address] [place] [phone] Nov, [facility] [address] [id number] [address] [place] [phone] Nov, [facility] [address] [id number] [address] [place] [phone] Nov, [facility] [address] [id number] [address] [place] [id number] Nov, [facility] [address] [id number] [address] [place] [phone] Nov, [facility] [address] [id number] [address] [place] [phone] Nov, [facility] [address] [id number] [address] [place] [address], [place] [address] Nov, [facility] [address] [id number] [address] [place] [address], [place] [address] Nov, [facility] [address] [id number] [address] [place] [address], [place] [address] Nov, 2014 [facility] [address] [id number] [address] [place] [address], [place] [address] Nov, 2014 [facility] [address] [id number] [address] [place] [address], [place] [address] Oct, 2014 [facility] [address] [id number] [address] [place] [address], [place] [address] Oct, 2014 [facility] [address] [id number] [address] [place] [address], [place] [address] Oct, 2014 [facility] [address] [id number] [address] [place] [address], [place] [address] Oct, 2014 [facility] [address] [id number] [address] [place] [address], [place] [address] Oct, 2014 [facility] [address] [id number] [address] [place] [address], [place] [address] Oct, [facility] [address] [id number] [address] [place] [address], [place] [address] Oct, 2014 [facility] [address] [id number] [address] [place] [phone] Oct, 2014 [facility] [address] [id number] [address] [place] [address], [place] [address] Oct, [facility] [address] [id number] [address] [place] [address], [place] [address] Sep, [facility] [address] [id number] [address] [place] [address], [place] [address] Sep, [facility] [address] [id number] [address] [place] [address], [place] [address] Sep, [facility] [address] [id number] [address] [place] [address], [place] [address] Sep, [facility] [address] [id number] [address] [place] [address], [place] [address] Sep, [facility] [address] [id number] [address] [place] [address], [place] [address] Sep, [facility] [address] [id number] [address] [place] [address], [place] [address] Sep, [facility] [address] [id number] [address] [place] [address], [place] [address] Sep, [facility] [address] [id number] [address] [place] [address], [place] [address] Sep, [facility] [address] [id number] [address] [place] [address], [place] [address] Sep, [facility] [address] [id number] [address] [place] [address], [place] [address] Sep, [facility] [address] [id number] [address] [place] [address], [place] [address] Sep, [facility] [address] [id number] [address] [place] [address], [place] [address] Sep, [facility] [address] [id number] [address] [place] [address], [place] [address] Sep, [facility] [address] [id number] [address] [place] [address], [place] [address] Sep, [facility] [address] [id number] [address] [place] [address], [place] [address] Sep, [facility] [address] [id number] [address] [place] [address], [place] [address] Aug, [facility] [address] [id number] [address] [place] [address], [place] [address] Aug, [facility] [address] [id number] [facility] [place] [address] Aug, [facility] [address] [id number] [facility] [place] [address] Aug, [facility] [address] [id number] [facility] [place] [address] Aug, [facility] [address] [id number] [facility] [place] [address] Aug, [facility] [address] [id number] [facility] [place] [address] Aug, [facility] [address] [id number] [address] [place] [address], [place] [address] Aug, [facility] [address] [id number] [facility] [place] [address] Aug, [facility] [address] [id number] [address] [place] [address], [place] [address] Aug, [facility] [address] [id number] [address] [place] [address], [place] [address] Aug, [facility] [address] [place] [id number] Aug, [facility] [address] [id number] [address] [place] [address], [place] [address] Aug, [facility] [address] [id number] [address] [place] [address], [place] [address] Aug, [facility] [address] [id number] [address] [place] [address], [place] [address] Aug, [facility] [address] [id number] [address] [place] [address], [place] [address] Aug, [facility] [address] [id number] [facility] [place] [address] Aug, [facility] [address] [id number] [address] [place] [address], [place] [address] Aug, [facility] [address] [id number] [address] [place] [address], [place] [address] Aug, [facility] [address] [id number] [address] [place] [address], [place] [address] Aug, [facility] [address] [id number] [address] [place] [address], [place] [address] Aug, [facility] [address] [id number] [address] [place] [address], [place] [address] Aug, [facility] [address] [id number] [address] [place] [address], [place] [address] Aug, [facility] [address] [id number] [address] [place] [address], [place] [address] Aug, [facility] [address] [id number] [address] [place] [address], [place] [address] Aug, [facility] [address] [id number] [address] [place] [address], [place] [address] Aug, [facility] [address] [id number] [address] [place] [address], [place] [address] Aug, [facility] [address] [id number] [address] [place] [address], [place] [address] Aug, [facility] [address] [id number] [address] [place] [address], [place] [address] Aug, [facility] [address] [id number] [address] [place] [address], [place] [address] Aug, [facility] [address] [id number] [address] [place] [address], [place] [address] Jul, [facility] [address] [id number] [address] [place] [address], [place] [address] Jul, [facility] [address] [id number] [address] [place] [address], [place] [address] Jul, [facility] [address] [id number] [address] [place] [address], [place] [address] Jul, [facility] [address] [id number] [address] [place] [address], [place] [address] Jul, [facility] [address] [id number] [address] [place] [address], [place] [address] Jul, [facility] [address] [id number] [address] [place] [address], [place] [address] Jul, [facility] [address] [id number] [address] [place] [address], [place] [address] Jul, [facility] [address] [id number] [address] [place] [address], [place] [address] Jul, [facility] [address] [id number] [address] [place] [address], [place] [address] Jul, [facility] [address] [id number] [address] [place] [address], [place] [address] Jun, [facility] [address] [id number] [address] [place] [address], [place] [address] Jun, [facility] [address] [id number] [address] [place] [address], [place] [address] Jun, [facility] [address] [id number] [address] [place] [address] Jun, [facility] [address] [id number] [address] [place] [address], [place] [address] Jun, [facility] [address] [id number] [address] [place] [address] Jun, [facility] [address] [id number] [address] [place] [id number] Jun, [facility] [address] [id number] [address] [place] [id number] Jun, [facility] [address] [id number] [address] [place] [address] Jun, [facility] [address] [id number] [address] [place] [address], [place] [address] 01 Jun, 2013 [facility] [address] [id number] [address] [place] [address], [place] [address] 29 Sep, 2013 [facility] [address] [id number] [address] [place] [address], [place] [address] 29 Sep, 2013 [facility] [address] [id number] [address] [place] [address], [place] [address] 26 Sep, 2013 [facility] [address] [id number] [address] [place] [address], [place] [address] 26 Sep, 2013 [facility] [address] [id number] [address] [place] [address], [place] [address] 17 Sep, 2013 [facility] [address] [id number] [address] [place] [address], [place] [address] 17 Sep, 2013 [facility] [address] [id number] [address] [place] [address], [place] [address] 15 May, 2013 [facility] [address] [id number] [address] [place] [address], [place] [address] 15 May, 2013 [facility] [address] [id number] [address] [place] [address], [place] [address] 15 Sep, 2013 [facility] [address] [id number] [address] [place] [address], [place] [address] 15 May, 2013 [facility] [address] [id number] [address] [place] [address], [place] [address] 10 Sep, 2013 [facility] [address] [id number] [address] [place] [address], [place] [address] 10 Sep, 2013 [facility] [address] [id number] [address] [place] [address], [place] [address] 09 Sep, 2013 [facility] [address] [id number] [address] [place] [address], [place] [address] 09 Sep, 2013 [facility] [address] [id number] [address] [place] [address], [place] [address] May, [facility] [address] [id number] [facility] [place] [address] May, [facility] [address] [id number] [address] [place] [address], [place] [address] Apr, [facility] [address] [id number] [address] [place] [address], [place] [address] Apr, [facility] [address] [id number] [address] [place] [address], [place] [address] Apr, [facility] [address] [id number] [address] [place] [address], [place] [address] Apr, [facility] [address] [id number] [address] [place] [address], [place] [address] Apr, [facility] [address] [id number] [address] [place] [address], [place] [address] Apr, [facility] [address] [id number] [address] [place] [address], [place] [address] Apr, [facility] [address] [id number] [address] [place] [address], [place] [address] Apr, [facility] [place] [facility] [address] [id number] [address] [place] [address], [place] [address] Apr, [facility] [place] [facility] [address] [id number] [address] [place] [address], [place] [address] Apr, [facility] [place] [facility] [address] [id number] [address] [place] [address], [place] [address] Apr, [facility] [place] [facility] [address] [id number] [address] [place] [address], [place] [address] Apr, [facility] [place] [facility] [address] [id number] [address] [place] [address], [place] [address] Apr, [facility] [place] [facility] [address] [id number] [address] [place] [address], [place] [address] Apr, [facility] [place] [facility] [address] [id number] [address] [place] [address] Apr, [facility] [address] [id number] [address] [place] [address], [place] [address] Mar, 2013 [facility] [address] [id number] [address] [place] [address], [place] [address] Mar, [facility] [address] [id number] [address] [place] [address], [place] [address] Mar, 2013 [facility] [address] [id number] [address] [place] [address], [place] [address] Mar, [facility] [address] [id number] [address] [place] [address], [place] [address] Mar, [facility] [address] [id number] [address] [place] [address], [place] [address] Mar, [facility] [address] [id number] [address] [place] [address], [place] [address] Mar, [facility] [address] [id number] [address] [place] [address], [place] [address] Mar, [facility] [address] [id number] [address] [place] [address], [place] [address] Mar, 2013 [facility] [address] [id number] [address] [place] [address], [place] [address] Mar, [facility] [address] [id number] [address] [place] [address], [place] [address] Mar, 2013 [facility] [address] [id number] [address] [place] [address], [place] [address] Mar, 2013 [facility] [address] [id number] [address] [place] [address], [place] [address] Mar, 2013 [facility] [address] [id number] [address] [place] [address], [place] [address] Mar, 2013 [facility] [address] [id number] [address] [place] [address], [place] [address] Mar, 2013 [facility] [place] [facility] [address] [id number] [address] [place] [address], [place] [address] Mar, [facility] [place] [facility] [address] [id number] [address] [place] [address], [place] [address] Mar, [facility] [place] [facility] [address] [id number] [address] [place] [address], [place] [address] Mar, [facility] [place] [facility] [address] [id number] [address] [place] [address], [place] [address] Feb, [facility] [address] [id number] [address] [place] [address], [place] [address] Feb, [facility] [place] [facility] [address] [id number] [address] [place] [address], [place] [address] Feb, [facility] [address] [id number] [address] [place] [address], [place] [address] Feb, [facility] [address] [id number] [address] [place] [address], [place] [address] Feb, [facility] [address] [id number] [address] [place] [address], [place] [address] Feb, [facility] [address] [id number] [address] [place] [address], [place] [address] Feb, [facility] [place] [facility] [address] [id number] [address] [place] [address], [place] [address] Feb, [facility] [place] [address] [id number] [address] [place] [address], [place] [address] Feb, [facility] [place] [facility] [address] [id number] [address] [place] [address], [place] [address] Feb, [facility] [place] [address] [id number] [address] [place] [address], [place] [address] Feb, [facility] [place] [facility] [address] [id number] [address] [place] [address], [place] [address] Feb, [facility] [place] [facility] [address] [id number] [address] [place] [address], [place] [address] Feb, [facility] [address] [id number] [facility] [place] [address] Feb, [facility] [address] [id number] [address] [place] [address], [place] [address] January, [facility] [address] [id number] [address] [place] [address], [place] [address] January, [facility] [address] [id number] [address] [place] [address], [place] [address] January, [facility] [address] [id number] [address] [place] [address], [place] [address] January, [facility] [address] [address] [id number] [address] [place] [address], [place] [address] January, [facility] [address] [id number] [address] [place] [address], [place] [address] January, [facility] [address] [id number] [address] [place] [address], [place] [address] January, [facility] [address] [id number] [address] [place] [address], [place] [address] January, [facility] [address] [id number] [address] [place] [address], [place] [address] January, [facility] [address] [id number] [address] [place] [address], [place] [address] January, [facility] [address] [id number] [address] [place] [address], [place] [address] January, [facility] [address] [id number] [address] [place] [address], [place] [address] January, [facility] [address] [id number] [address] [place] [address], [place] [address] January, [facility] [address] [id number] [address] [place] [address], [place] [address] January, [facility] [address] [id number] [facility] [place] [address] Dec, [facility] [address] [id number] [facility] [place] [address] Dec, [facility] [address] [id number] [facility] [place] [address] Dec, [facility] [address] [id number] [facility] [place] [address] Dec, [facility] [address] [id number] [facility] [place] [address] Dec, [facility] [address] [id number] [address] [place] [address], [place] [address] Dec, [facility] [address] [id number] [address] [place] [address], [place] [address] Dec, [facility] [address] [id number] [address] [place] [address], [place] [address] Dec, [facility] [address] [id number] [address] [place] [address], [place] [address] Dec, [facility] [address] [id number] [address] [place] [address], [place] [address] Dec, [facility] [address] [id number] [address] [place] [address], [place] [address] Nov, [facility] [address] [id number] [address] [place] [address], [place] [address] Nov, [facility] [address] [id number] [address] [place] [address], [place] [address] Nov, [facility] [address] [id number] [address] [place] [address], [place] [address] Nov, [facility] [address] [id number] [address] [place] [address], [place] [address] Nov, [facility] [address] [id number] [address] [place] [address], [place] [address] Nov, [facility] [address] [id number] [facility] [place] [address] Nov, [facility] [address] [id number] [address] [place] [address], [place] [address] Nov, [facility] [address] [id number] [address] [place] [address], [place] [address] Nov, [facility] [address] [id number] [address] [place] [address], [place] [address] Nov, [facility] [address] [id number] [address] [place] [address], [place] [address] Oct, [facility] [address] [id number] [address] [place] [address], [place] [address] Oct, [facility] [address] [id number] [address] [place] [address], [place] [address] Oct, [facility] [address] [id number] [address] [place] [address], [place] [address] Oct, [facility] [address] [id number] [address] [place] [address], [place] [address] Oct, [facility] [address] [id number] [address] [place] [address], [place] [address] Oct, [facility] [address] [id number] [address] [place] [address], [place] [address] Oct, [facility] [address] [id number] [address] [place] [address], [place] [address] 14 Oct, 2013 [facility] [address] [id number] [address] [place] [address], [place] [address] 05 Oct, 2013 [facility] [address] [id number] [address] [place] [address], [place] [address] 05 Oct, 2013 [facility] [address] [id number] [address] [place] [address], [place] [address] 04 Oct, 2013 [facility] [address] [id number] [address] [place] [address], [place] [address] Oct, [facility] [address] [id number] [address] [place] [address], [place] [address] Oct, [facility] [address] [id number] [address] [place] [address], [place] [address] Oct, [facility] [address] [id number] [address] [place] [address], [place] [address] Sep, [facility] [address] [id number] [address] [place] [address], [place] [address] Sep, [facility] [address] [id number] [address] [place] [address], [place] [address] Sep, [facility] [address] [id number] [address] [place] [address], [place] [address] Sep, [facility] [address] [id number] [address] [place] [address], [place] [address] Sep, [facility] [address] [id number] [address] [place] [address], [place] [address] Sep, [facility] [address] [id number] [address] [place] [address], [place] [address] Sep, [facility] [address] [id number] [address] [place] [address], [place] [address] Sep, [facility] [address] [id number] [address] [place] [address], [place] [address] Sep, [facility] [address] [id number] [address] [place] [address], [place] [address] Sep, [facility] [address] [id number] [address] [place] [address], [place] [address] Aug, [facility] [address] [id number] [address] [place] [address], [place] [address] Aug, [facility] [address] [id number] [place] [address] Jul, [facility] [address] [id number] [address] [place] [address], [place] [address] Jul, [facility] [address] [id number] [address] [place] [address], [place] [address] Jul, [facility] [address] [id number] [address] [place] [address], [place] [address] Jul, [facility] [address] [id number] [address] [place] [address] Jul, [facility] [address] [id number] [address] [place] [address], [place] [address] Jul, [facility] [address] [id number] [address] [place] [address] Jul, [facility] [address] [id number] [address] [place] [address], [place] [address] Jul, [facility] [address] [id number] [address] [place] [address] Jul, [facility] [address] [id number] [address] [place] [address] Jul, [facility] [address] [id number] [address] [place] [address] Jul, [facility] [address] [id number] [address] [place] [address] Jul, [facility] [address] [id number] [address] [place] [address] Jul, [facility] [address] [id number] [address] [place] [address], [place] [address] Jul, [facility] [address] [id number] [address] [place] [address] Jul, [facility] [address] [id number] [address] [place] [address] Jul, [facility] [address] [id number] [address] [place] [address], [place] [address] Jul, 2012 [facility] [address] [id number] [address] [place] [address], [place] [address] Jul, 2012 [facility] [address] [id number] [address] [place] [address], [place] [address] Jul, 2012 [facility] [address] [id number] [address] [place] [address], [place] [address] Jun, 2012 [facility] [address] [id number] [address] [place] [address], [place] [address] Jun, 2012 [facility] [address] [id number] [address] [place] [address], [place] [address] Jun, 2012 [facility] [address] [id number] [address] [place] [address], [place] [address] Jun, 2012 [facility] [address] [id number] [address] [place] [address], [place] [address] Jun, 2012 [facility] [address] [id number] [address] [place] [address], [place] [address] Jun, 2012 [facility] [address] [id number] [address] [place] [address], [place] [address] Jun, [facility] [address] [id number] [address] [place] [address], [place] [address] Jun, [facility] [address] [id number] [address] [place] [address], [place] [address] Jun, [facility] [address] [id number] [address] [place] [address], [place] [address] Jun, [facility] [address] [id number] [address] [place] [address], [place] [address] Jun, [facility] [address] [id number] [address] [place] [address], [place] [address] May, [facility] [address] [id number] [address] [place] [address], [place] [address] 25 May, 2013 [facility] [address] [id number] [address] [place] [address], [place] [address] 19 May, 2012 [facility] [address] [id number] [address] [place] [address], [place] [address] 17 May, 2013 [facility] [address] [id number] [address] [place] [address], [place] [address] 11 May, 2012 [facility] [address] [id number] [address] [place] [address], [place] [address] 10 May, 2012 [facility] [address] [id number] [address] [place] [address], [place] [address] 09 May, 2013 [facility] [address] [id number] [address] [place] [address], [place] [address] 05 May, 2013 [facility] [address] [id number] [address] [place] [address], [place] [address] Apr, [facility] [address] [id number] [address] [place] [address], [place] [address] Apr, [facility] [address] [id number] [address] [place] [address], [place] [address] Apr, [facility] [address] [id number] [address] [place] [address], [place] [address] Apr, [facility] [address] [id number] [address] [place] [address], [place] [address] Apr, [facility] [address] [id number] [address] [place] [address], [place] [address] Mar, [facility] [address] [id number] [address] [place] [address], [place] [address] Mar, [facility] [address] [id number] [address] [place] [address], [place] [address] Mar, [facility] [address] [id number] [address] [place] [address], [place] [address] Mar, [facility] [address] [id number] [address] [place] [address], [place] [address] Mar, [facility] [address] [id number] [address] [place] [address], [place] [address] Mar, [facility] [address] [id number] [address] [place] [address], [place] [address] Mar, [facility] [address] [id number] [address] [place] [address], [place] [address] Mar, [facility] [address] [id number] [address] [place] [address], [place] [address] Feb, [facility] [address] [id number] [address] [place] [address], [place] [address] Feb, [facility] [address] [id number] [address] [place] [address], [place] [address] January, [facility] [address] [id number] [address] [place] [address], [place] [address] January, [facility] [address] [id number] [address] [place] [address], [place] [address] Dec, [facility] [address] [id number] [address] [place] [address], [place] [address] Dec, [facility] [address] [id number] [address] [place] [address], [place] [address] Nov, [facility] [address] [id number] [address] [place] [address], [place] [address] Nov, [facility] [address] [id number] [address] [place] [address], [place] [address] Nov, [facility] [address] [id number] [address] [place] [address], [place] [address] Nov, [facility] [address] [id number] [address] [place] [address], [place] [address] Oct, [facility] [address] [id number] [address] [place] [address], [place] [address] Oct, [facility] [address] [id number] [address] [place] [address], [place] [address] 26 Oct, 2012 [facility] [address] [id number] [address] [place] [address], [place] [address] 26 Oct, 2012 [facility] [address] [id number] [address] [place] [address], [place] [address] 16 Oct, 2012 [facility] [address] [id number] [address] [place] [address], [place] [address] 14 Oct, 2012 [facility] [address] [id number] [address] [place] [address], [place] [address] 08 Oct, 2012 [facility] [address] [id number] [address] [place] [address], [place] [address] 07 Oct, 2012 [facility] [address] [id number] [address] [place] [address], [place] [address] 03 Oct, 2012 [facility] [address] [id number] [address] [place] [address], [place] [address] 30 Sep, 2012 [facility] [address] [id number] [address] [place] [address], [place] [address] Sep, [facility] [address] [id number] [address] [place] [address], [place] [address] Sep, [facility] [address] [id number] [address] [place] [address] Sep, [facility] [address] [id number] [address] [place] [id number] 17 Sep, 2012 [facility] [address] [id number] [address] [place] [address], [place] [address] Sep, [facility] [address] [id number] [address] [place] [address], [place] [address] 09 Sep, 2012 [facility] [address] [id number] [address] [place] [id number] 08 Sep, 2012 [facility] [address] [id number] [address] [place] [id number] 31 Aug, 2012 [facility] [address] [id number] [address] [place] [address], [place] [address] Aug, [facility] [address] [id number] [address] [place] [address], [place] [address] Aug, [facility] [address] [id number] [address] [place] [address], [place] [address] Aug, [facility] [address] [id number] [address] [place] [address], [place] [address] Aug, [facility] [address] [id number] [address] [place] [address], [place] [address] Aug, [facility] [address] [id number] [address] [place] [address], [place] [address] Aug, [facility] [address] [id number] [address] [place] [address], [place] [address] Aug, [facility] [address] [id number] [address] [place] [address], [place] [address] Jul, [facility] [address] [id number] [address] [place] [address], [place] [address] Jul, [facility] [address] [id number] [address] [place] [address], [place] [address] Jul, [facility] [address] [id number] [address] [place] [address], [place] [address] Jul, [facility] [address] [id number] [address] [place] [address], [place] [address] Jul, [facility] [address] [id number] [address] [place] [address], [place] [address] Jul, [facility] [address] [id number] [address] [place] [address], [place] [address] Jun, [facility] [address] [id number] [address] [place] [address], [place] [address] Jun, [facility] [address] [id number] [address] [place] [address], [place] [address] 23 Jun, 2012 [facility] [address] [id number] [address] [place] [address], [place] [address] 23 Jun, 2012 [facility] [address] [id number] [address] [place] [address], [place] [address] Jun, [facility] [address] [id number] [address] [place] [address], [place] [address] 19 Jun, 2012 [facility] [address] [id number] [address] [place] [address], [place] [address] 19 Jun, 2012 [facility] [address] [id number] [address] [place] [address], [place] [address] 10 Jun, 2012 [facility] [address] [id number] [address] [place] [address], [place] [address] 10 Jun, 2012 [facility] [address] [id number] [address] [place] [address], [place] [address] 26 May, 2012 [facility] [address] [id number] [address] [place] [address], [place] [address] 24 May, 2012 [facility] [address] [id number] [address] [place] [address], [place] [address] 18 May, 2012 [facility] [address] [id number] [address] [place] [address], [place] [address] 30 Apr, 2012 [facility] [address] [id number] [address] [place] [address], [place] [address] 29 Apr, 2012 [facility] [address] [id number] [address] [place] [address], [place] [address] 18 Apr, 2012 [facility] [address] [id number] [address] [place] [address], [place] [id number] 14 Apr, 2012 [facility] [address] [id number] [address] [place] [address], [place] [address] 10 Apr, 2012 [facility] [address] [id number] [address] [place] [address], [place] [address] Apr, [facility] [address] [id number] [address] [place] [address], [place] [address] Mar, [facility] [address] [id number] [address] [place] [address], [place] [address] Mar, [facility] [address] [id number] [address] [place] [address], [place] [address] Mar, [facility] [address] [id number] [address] [place] [address], [place] [address] Mar, [facility] [address] [id number] [address] [place] [address], [place] [id number] Feb, [facility] [address] [id number] [address] [place] [address], [place] [address] Feb, [facility] [address] [id number] [address] [place] [address], [place] [address] Feb, [facility] [address] [id number] [address] [place] [address], [place] [address] Feb, [facility] [address] [id number] [address] [place] [address], [place] [address] Feb, [facility] [address] [id number] [address] [place] [address], [place] [address] January, [facility] [address] [id number] [address] [place] [address], [place] [address] January, [facility] [address] [id number] [address] [place] [address], [place] [address] January, [facility] [address] [id number] [address] [place] [address], [place] [address] January, [facility] [address] [id number] [address] [place] [address], [place] [address] January, [facility] [address] [id number] [address] [place] [address], [place] [address] January, [facility] [address] [id number] [address] [place] [address], [place] [address] 24 Dec, 2011 [facility] [address] [id number] [address] [place] [address], [place] [address] 24 Dec, 2011 [facility] [address] [id number] [address] [place] [address], [place] [address] 17 Dec, 2011 [facility] [address] [id number] [address] [place] [address], [place] [address] 09 Dec, 2011 [facility] [address] [id number] [address] [place] [address], [place] [address] 06 Dec, 2011 [facility] [address] [id number] [address] [place] [address], [place] [address] 27 Nov, 2011 [facility] [address] [id number] [address] [place] [address], [place] [address] 14 Nov, 2011 [facility] [address] [id number] [address] [place] [address], [place] [address] 12 Nov, 2011 [facility] [address] [id number] [address] [place] [address], [place] [address] 07 Nov, 2011 [facility] [address] [id number] [address] [place] [address], [place] [address] 29 Oct, 2011 [facility] [address] [id number] [address] [place] [address], [place] [address] 28 Oct, 2011 [facility] [address] [id number] [address] [place] [address], [place] [address] 24 Oct, 2011 [facility] [address] [id number] [address] [place] [address], [place] [address] 13 Oct, 2011 [facility] [address] [id number] [address] [place] [address], [place] [address] 08 Oct, 2011 [facility] [address] [id number] [address] [place] [address], [place] [address] 31 Sep, 2011 [facility] [address] [id number] [address] [place] [address], [place] [address] Sep, [facility] [address] [id number] [address] [place] [address], [place] [address] Sep, [facility] [address] [id number] [address] [place] [address], [place] [address] Sep, [facility] [address] [id number] [address] [place] [address], [place] [address] Sep, [facility] [address] [id number] [address] [place] [address], [place] [address] Sep, [facility] [address] [id number] [address] [place] [address], [place] [address] Aug, [facility] [address] [id number] [address] [place] [address], [place] [address] Aug, [facility] [address] [id number] [address] [place] [address], [place] [address] Aug, [facility] [address] [id number] [address] [place] [address], [place] [address] Jul, [facility] [address] [id number] [address] [place] [address], [place] [address] Jul, [facility] [address] [id number] [address] [place] [address], [place] [address] Jul, [facility] [address] [id number] [address] [place] [address], [place] [address] Jul, [facility] [address] [id number] [address] [place] [address], [place] [address] Jun, [facility] [address] [id number] [address] [place] [address], [place] [address] Jun, [facility] [address] [id number] [address] [place] [address], [place] [address] Jun, [facility] [address] [id number] [address] [place] [address], [place] [address] Jun, [facility] [address] [id number] [address] [place] [address] [place] [address] 10 Jun, 2011 [facility] [address] [id number] [address] [place] [address], [place] [address] 10 Jun, 2011 [facility] [address] [id number] [address] [place] [address], [place] [address] 11 Mar, 2011 [facility] [address] [id number] [address] [place] [address], [place] [address] 18 Dec, 2010 [facility] [address] [id number] [address] [place] [address], [place] [address] 11 Dec, 2010 [facility] [address] [id number] [address] [place] [address], [place] [address] 18 Nov, 2010 [facility] [address] [id number] [address] [place] [address], [place] [address] 16 Nov, 2010 [facility] [address] [id number] [address] [place] [address], [place] [address] 10 Sep, 2010 [facility] [address] [id number] [address] [place] [address], [place] [address] 31 Aug, 2010 [facility] [address] [id number] [address] [place] [address], [place] [address] 29 Aug, 2010 [facility] [address] [id number] [address] [place] [address], [place] [address] 29 Aug, 2010 [facility] [address] [id number] [address] [place] [address], [place] [address] 29 Aug, 2010 [facility] [address] [id number] [address] [place] [address], [place] [address] 27 Aug, 2010 [facility] [address] [id number] [address] [place] [address], [place] [address] 14 Aug, 2010 [facility] [address] [id number] [address] [place] [address], [place] [address] 08 Aug, 2010 [facility] [address] [id number] [address] [place] [address], [place] [address] 08 Aug, 2010 [facility] [address] [id number] [address] [place] [address], [place] [address] 07 Aug, 2010 [facility] [address] [id number] [address] [place] [address], [place] [address] Aug, [facility] [address] [id number] [address] [place] [address], [place] [address] Aug, [facility] [address] [id number] [address] [place] [address], [place] [address] Aug, [facility] [address] [id number] [address] [place] [address], [place] [address] Jul, [facility] [address] [id number] [address] [place] [address], [place] [address] Jul, [facility] [address] [id number] [address] [place] [address], [place] [address] Jul, [facility] [address] [id number] [address] [place] [address], [place] [address] Jul, [facility] [address] [id number] [address] [place] [address], [place] [address] Jul, [facility] [address] [id number] [address] [place] [address], [place] [address] Jul, [facility] [address] [id number] [address] [place] [address], [place] [address] Jun, [facility] [address] [id number] [address] [place] [address], [place] [address] Jun, [facility] [address] [id number] [address] [place] [address], [place] [address] Jun, [facility] [address] [id number] [address] [place] [address], [place] [address] Jun, [facility] [address] [id number] [address] [place] [id number] Apr, [facility] [address] [id number] [address] [place] [id number] Mar, [facility] [address] [id number] [address] [place] [address], [place] [address] 17 Feb, 2010 [facility] [address] [id number] [address] [place] [id number] January, [facility] [address] [id number] [address] [place] [id number] 15 Dec, 2009 [facility] [address] [id number] [address] [place] [id number] Nov, [facility] [address] [id number] [address] [place] [address], [place] [address] 31 Aug, 2009 [facility] [address] [id number] [address] [place] [id number] Aug, [facility] [address] [id number] [address] [place] [id number] Aug, [facility] [address] [id number] [address] [place] [id number] Jul, [facility] [address] [id number] [address] [place] [id number] Jul, [facility] [address] [id number] [address] [place] [id number] Jul, [facility] [address] [id number] [address] [place] [id number] 30 Jun, 2009 [facility] [address] [id number] [address] [place] [id number] 29 Jun, 2009 [facility] [address] [id number] [address] [place] [id number] Jun, [facility] [address] [id number] [address] [place] [id number] Jun, [facility] [address] [id number] [address] [place] [id number] Jun, [facility] [address] [id number] [address] [place] [id number] Jun, [facility] [address] [facility] [id number] [address] [place] [id number] Apr, [facility] [address] [facility] [id number] [address] [place] [id number] Apr, [facility] [address] [facility] [id number] [address] [place] [id number] Feb, [facility] [address] [facility] [id number] [address] [place] [id number] January, [facility] [address] [facility] [id number] [address] [place] [id number] Dec, IMMUNIZATIONS No Known Immunizations SOCIAL HISTORY [...] Medical History skin cancer-basal cell R sikhism (removed ) Medical History Arthritis Medical History [...] History inability to urinate 09/16/15 Hospitalization History [facility] inpatient mental health ea rly 1999' Hospitalization History hyperkalemia 10/2017 Hospitalization History fluid in lung
--- OUTSIDE RECORDS SUMMARY | 2020-03-01 17:53 | XMS REPORT ---
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 Name Role Phone NOEMI WASHBURN Unavailable PROBLEMS Type Condition ICD9-CM Code VJY80-UN Code Onset Dates Condition S tatus SNOMED Code Problem Leukocytosis D72.829 Active 4318707 06 Problem Bipolar I disorder, most recent episode (or curr ent) mixed, moderate F31.62 Active 05900398 Problem Reactive airway disease J45.909 Active 338821128563 Problem Anxiety F41.9 Active 52023873 Problem Insomnia, unspecified type G47.00 Act sharon 641105851 Problem Essential hypertension I10 Active 84501764 Problem Morbid obesity E66.01 Active 08681 6002 Problem Skin cancer C44.90 Active 42790840 7 Problem DM neuro manif type II E11.49 Active 39776327 Problem Mild cognitive impairment G31.84 Acti ve 799403414 Problem Benign prostatic hyperplasia with lower urinary tract symptoms, unspecified morphology N40.1 Active 68173 6007 Problem Chronic pain G89.29 Active 0014205 1 Problem Diabetes E11.9 Active 24339659 Problem Retinal edema H35.81 Active 840789 6 Problem Anemia of chronic illness D63.8 Acti ve 986882217 Problem Falling R29.6 Active 096168426 Problem Pressure ulcer of other site, stage 3 L89.893 Active 269015658 Problem 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 Active 539894683 Problem Eye exam abnormal R93.8 Active 16 1337855 Problem Pure hypercholesterolemia E78.00 Acti ve 574848595 Problem Dysuria R30.0 Active 08986736 Problem Bipolar disorder, in partial remission, most rec ent episode depressed F31.75 Active 65803676 Problem Hypokalemia E87.6 Active 38822469 Problem Other iron deficiency anemia D50.8 A ctive 10519187 Problem Eustachian tube dysfunction, unspecified laterality H69.80 Active 38780067 Problem Primary osteoarthritis of right knee M17.11 Active 871773272657533 Problem Cough R05 Active 53459758 Problem Bipolar disorder F31.9 Active 137 26184 Problem Chronic diastolic (congestive) heart failure I50.3 2 Active 322275014 Problem Psychophysiological insomnia F51.04 A ctive 616186498 Problem Gastroesophageal reflux disease without esophagitis K21.9 Active 531460257 Problem Polyneuropathy associated with underlying disease G63 Active 241288980 Problem Other secondary acute gout, 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 0 Active 813284404 Problem Diabetic polyneuropathy associated with type 2 d iabetes mellitus E11.42 Active 27936766 Problem Chronic lymphocytic leukemia C91.10 A ctive 93410712 Problem Bilateral primary osteoarthritis of knee M17.0 Active 651020257 Problem Type 2 diabetes mellitus with diabetic neuropathy, uns pecified E11.40 Active 72201812 Problem skilled nursing (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 Z79.4 Active 909672900 Problem Lymphocytosis D72.820 Active 973215 09 Problem Mood disorder F39 Active 793089 05 Problem Bipolar I disorder, most recent episode depressed, moderat e F31.32 Active 795653207 ALLERGIES No Information ENCOUNTERS Encounter Location Date Diagnosis [facility] [address] [id number] [address] [place] [id number] Dec, [facility] [address] [id number] [address] [place] [id number] 17 Dec, 2019 Chronic pain G89.29 [facility] [address] [id number] [address] [place] [id number] 13 Dec, 2019 [facility] [address] [id number] [address] [place] [id number] Dec, [facility] [address] [id number] [address] [place] [id number] Dec, Gastroesophageal reflux dise ase without esophagitis K21.9 and Pure hypercholesterolemia E78.00 [facility] [address] [id number] [address] [place] [phone] Dec, Mood disorder F39 [facility] [address] [id number] [address] [place] [id number] 31 Nov, 2019 Other secondary acute gout, 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 [facility] [address] [id number] [address] [place] [phone] Nov, Gastroesophageal reflux dise ase without esophagitis K21.9 [facility] [address] [id number] [address] [place] [phone] Nov, Chronic pain G89.29 [facility] [address] [id number] [address] [place] [id number] Nov, Bipolar I disorder, most rec ent episode depressed, moderate F31.32 ; Anxiety F41.9 and Mild cognitive impairment G31.84 [facility] [address] [address] [id number] [address] [place] [id number] Nov, [place] [address] [facility] [id number] [address] [place] [id number] Nov, Syncope, unspecified syncope type R55 [place] [address] [facility] [id number] [address] [place] [id number] Nov, Mood disorder F39 [place] [address] [facility] [id number] [address] [place] [id number] Oct, Chronic pain G89.29 [facility] [address] [id number] [address] [place] [id number] Oct, [facility] [address] [id number] [address] [place] [id number] Oct, Mood disorder F39 [facility] [address] [id number] [address] [place] [id number] Oct, [place] [address] [facility] [id number] [address] [place] [id number] Oct, Bipolar disorder, in partial remission, most recent episode depressed F31.75 and Mild cognitive impairment G31.84 [place] [address] [facility] [id number] [address] [place] [phone] Oct, Mood disorder F39 [facility] [address] [id number] [address] [place] [phone] Sep, [facility] [address] [id number] [address] [place] [phone] Sep, Mood disorder F39 [facility] [address] [id number] [address] [place] [phone] Sep, Bipolar disorder, in partial remission, most recent episode depressed F31.75 and Mild cognitive impairment G31.84 [facility] [address] [id number] [address] [place] [phone] Sep, Mood disorder F39 [facility] [address] [id number] [address] [place] [phone] Sep, [facility] [address] [id number] [address] [place] [id number] Sep, Mood disorder F39 [facility] [address] [id number] [address] [place] [phone] Sep, [facility] [address] [id number] [address] [place] [phone] Aug, Mood disorder F39 [facility] [address] [id number] [address] [place] [phone] Aug, [facility] [address] [id number] [address] [place] [phone] Aug, [facility] [address] [id number] [address] [place] [phone] Aug, [facility] [address] [id number] [address] [place] [phone] Aug, [facility] [address] [id number] [address] [place] [phone] Aug, [facility] [address] [id number] [address] [place] [phone] Aug, [facility] [address] [id number] [address] [place] [phone] Aug, [facility] [address] [id number] [address] [place] [phone] Aug, Essential hypertension I10 [facility] [address] [id number] [address] [place] [phone] Aug, Bipolar disorder, in partial remission, most recent episode depressed F31.75 and Mild cognitive impairment G31.84 [facility] [address] [id number] [address] [place] [phone] Aug, Mood disorder F39 [facility] [address] [id number] [address] [place] [id number] Aug, [facility] [address] [id number] [address] [place] [phone] Aug, Bipolar disorder, in partial remission, most recent episode depressed F31.75 and Mild cognitive impairment G31.84 [facility] [address] [id number] [address] [place] [id number] Jul, Bipolar disorder, in partial remission, most recent episode depressed F31.75 and Mild cognitive impairment G31.84 [facility] [address] [id number] [address] [place] [id number] Jul, Psychophysiological insomnia F51.04 [facility] [address] [id number] [address] [place] [phone] Jul, [facility] [address] [id number] [address] [place] [phone] Jul, [facility] [address] [id number] [address] [place] [phone] Jul, [facility] [address] [id number] [address] [place] [phone] Jul, [facility] [address] [id number] [address] [place] [phone] Jul, [place] [address] [id number] [address] [place] [phone] Jul, [place] [address] [facility] [id number] [address] [place] [phone] Jul, Bipolar disorder, in partial remission, most recent episode depressed F31.75 and Mild cognitive impairment G31.84 [place] [address] [place] [id number] [address] [place] [address] Jul, Chronic pain G89.29 ; Diabet es E11.9 ; Essential hypertension I10 ; Ill feeling R68.89 ; Local infection of the skin and subcutaneous tissue, unspecified L08.9 and Other injury of unspecified body region, initial encounter T14.8XXA [place] [address] [place] [id number] [address] [place] [id number] Jun, Bipolar disorder, in partial remission, most recent episode depressed F31.75 and Mild cognitive impairment G31.84 [place] [address] [facility] [id number] [address] [place] [phone] Jun, [place] [address] [facility] [id number] [address] [place] [id number] Jun, Bipolar disorder, in partial remission, most recent episode depressed F31.75 and Mild cognitive impairment G31.84 [place] [address] [place] [id number] [address] [place] [phone] Jun, Psychophysiological insomnia F51.04 [place] [address] [facility] [facility] [id number] [address] [place] [id number] Jun, Psychophysiological insomnia F51.04 ; Chronic pain G89.29 ; Bipolar I disorder, most recent episode (or current) mixed, moderate F31.62 ; 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 ; Polyneuropathy associated with underlying disease G63 ; Type 2 diabetes mellitus with diabetic neuropathy, unspecified E11.40 ; 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.4 and Hyperglycemia R73.[address] [id number] [address] [place] [phone] Jun, Bipolar disorder, in partial remission, most recent episode depressed F31.75 and Mild cognitive impairment G31.84 [facility] [address] [id number] [address] [place] [id number] Jun, [facility] [address] [id number] [address] [place] [id number] Jun, Bipolar disorder F31.9 [facility] [address] [id number] [address] [place] [id number] May, Bipolar disorder, in partial remission, most recent episode depressed F31.75 and Mild cognitive impairment G31.84 [facility] [address] [id number] [address] [place] [id number] May, [facility] [address] [id number] [address] [place] [id number] Apr, Chronic pain G89.29 and Bipo lar disorder F31.9 [facility] [address] [id number] [address] [place] [id number] Mar, Bipolar disorder F31.9 and C hronic pain G89.29 [facility] [address] [id number] [address] [place] [phone] Feb, Bipolar disorder F31.9 [facility] [address] [id number] [address] [place] [phone] Feb, Cellulitis of right upper ex tremity L03.113 and Skin abrasion T14.8XXA [facility] [address] [id number] [address] [place] [id number] Feb, Bipolar disorder, in partial remission, most recent episode depressed F31.75 and Mild cognitive impairment G31.84 [facility] [address] [id number] [address] [place] [phone] Feb, Chronic pain G89.29 [facility] [address] [id number] [address] [place] [id number] Feb, Bipolar disorder, in partial remission, most recent episode depressed F31.75 and Mild cognitive impairment G31.84 [facility] [address] [id number] [address] [place] [phone] January, Bipolar disorder, in partial remission, most recent episode depressed F31.75 and Mild cognitive impairment G31.84 [facility] [address] [id number] [address] [place] [id number] January, Chronic pain G89.29 and Bipo lar disorder F31.9 [facility] [address] [id number] [address] [place] [id number] January, Bipolar disorder, in partial remission, most recent episode depressed F31.75 and Mild cognitive impairment G31.84 [facility] [address] [id number] [address] [place] [id number] Dec, [facility] [address] [id number] [address] [place] [phone] Dec, Chronic pain G89.29 and Bipo lar disorder F31.9 [facility] [address] [id number] [address] [place] [phone] Dec, Edema of both lower extremit ies R60.0 [facility] [address] [id number] [address] [place] [phone] Dec, Bipolar disorder F31.9 [facility] [address] [id number] [address] [place] [phone] Dec, Bipolar disorder, in partial remission, most recent episode depressed F31.75 and Mild cognitive impairment G31.84 [facility] [address] [id number] [address] [place] [phone] Nov, [facility] [address] [id number] [address] [place] [phone] Nov, Chronic pain G89.29 [facility] [address] [id number] [address] [place] [id number] Nov, Bipolar disorder, in partial remission, most recent episode depressed F31.75 and Mild cognitive impairment G31.84 [place] [address] [place] [id number] [address] [place] [phone] Nov, Bipolar disorder F31.9 [place] [address] [place] [id number] [address] [place] [id number] 04 Nov, 2018 [facility] ; Polyneuropathy [...] unspecified morphology N40.1 and Essential hypertension I10 [place] [id number] [place] [phone] Oct, Chronic pain G89.29 [place] [address] [place] [id number] [address] [place] [address] 18 Oct, 2018 Diabetes E11.9 [place] [address] [place] [id number] [address] [place] [id number] Oct, Bipolar I disorder, most rec ent episode (or current) mixed, moderate F31.62 and Mild cognitive impairment G31.84 [place] [address] [place] [id number] [address] [place] [address] Oct, Bipolar I disorder, most rec ent episode (or current) mixed, moderate F31.62 and Mild cognitive impairment G31.84 [place] [address] [place] [id number] [address] [place] [id number] Sep, Bipolar I disorder, most rec ent episode (or current) mixed, moderate F31.62 and Mild cognitive impairment G31.84 [place] [address] [place] [id number] [address] [place] [phone] Sep, [facility] [address] [place] [id number] [address] [place] [id number] Sep, Diabetes E11.9 ; Hypoxia R09 .02 ; Hyperglycemia R73.9 ; Therapeutic drug monitoring Z51.81 ; BMI 50.0-59.9, adult Z68.43 and Skin cancer C44.90 [place] [address] [place] [id number] [place] [address] Sep, Chronic pain G89.29 [place] [address] [place] [id number] [place] [phone] Sep, Bipolar I disorder, most rec ent episode (or current) mixed, moderate F31.62 [place] [address] [place] [id number] [place] [phone] Sep, [place] [address] [place] [id number] [place] [phone] Sep, [place] [address] [place] [id number] [address] [place] [address] Aug, Chronic pain G89.29 [place] [address] [place] [id number] [address] [place] [id number] Aug, Bipolar I disorder, most rec ent episode (or current) mixed, moderate F31.62 [place] [address] [place] [id number] [address] [place] [id number] Aug, Bipolar I disorder, most rec ent episode (or current) mixed, moderate F31.62 and Mild cognitive impairment G31.84 [place] [address] [place] [id number] [address] [place] [phone] Jul, [place] [address] [place] [id number] [address] [place] [phone] Jul, Chronic pain G89.29 [facility] [address] [place] [id number] [address] [place] [phone] Jul, Bipolar I disorder, most rec ent episode (or current) mixed, moderate F31.62 and Mild cognitive impairment G31.84 [place] [address] [facility] [id number] [address] [place] [id number] Jul, Bipolar I disorder, most rec ent episode (or current) mixed, moderate F31.62 and MCI (mild cognitive impairment) G31.84 [place] [address] [facility] [id number] [address] [place] [id number] Jul, [facility] [address] [id number] [address] [place] [id number] Jul, [place] [address] [place] [id number] [place] [id number] Jul, Bipolar I disorder, most rec ent episode (or current) mixed, moderate F31.62 [place] [address] [place] [id number] [address] [place] [address] Jul, Chronic pain G89.29 [place] [address] [facility] [id number] [address] [place] [id number] Jun, Bipolar I disorder, most rec ent episode (or current) mixed, moderate F31.62 [place] [address] [place] [id number] [address] [place] [phone] Jun, Pre-procedure lab exam Z01.8 12 [place] [address] [place] [id number] [address] [place] [phone] Jun, [facility] [address] [id number] [place] [address] [id number] Jun, [place] [address] [facility] [id number] [address] [place] [phone] Jun, [place] [address] [place] [id number] [address] [place] [phone] Jun, Forgetfulness R68.89 ; Pre-s yncope R55 ; Localized edema R60.0 ; Other iron deficiency anemia D50.8 and BMI 50.0-59.9, adult Z68.43 [facility] [address] [id number] [address] [place] [phone] Jun, Chronic pain G89.29 [facility] [address] [address] [id number] [address] [place] [id number] Jun, Chronic pain G89.29 [facility] [address] [address] [id number] [address] [place] [id number] Jun, Bipolar I disorder, most rec ent episode (or current) mixed, moderate F31.62 [facility] [address] [address] [id number] [address] [place] [id number] May, Chronic pain G89.29 [facility] [address] [facility] [id number] [address] [place] [phone] Apr, [place] [address] [facility] [id number] [address] [place] [id number] Apr, Chronic pain G89.29 [facility] [address] [facility] [id number] [address] [place] [id number] Apr, Primary osteoarthritis of ri ght knee M17.11 [facility] [address] [facility] [id number] [address] [place] [id number] Mar, [facility] [address] [facility] [address] [id number] [address] [place] [id number] Mar, BMI 50.0-59.9, adult Z68.43 and Bipolar disorder, in partial remission, most recent episode depressed F31.75 [facility] [address] [facility] [address] [id number] [address] [place] [phone] Mar, Diabetes E11.9 ; Pure hyperc holesterolemia E78.00 ; Essential hypertension I10 ; Nausea with vomiting, unspecified R11.2 and Headache, unspecified headache type R51 [facility] [address] [facility] [id number] [address] [place] [id number] Mar, Bipolar I disorder, most rec ent episode (or current) mixed, moderate F31.62 [facility] [address] [id number] [address] [place] [id number] 16 Mar, 2018 Bipolar I disorder, most rec ent episode (or current) mixed, moderate F31.62 [facility] [address] [facility] [id number] [address] [place] [id number] Mar, Chronic pain G89.29 [facility] [address] [facility] [id number] [address] [place] [id number] Mar, Bipolar I disorder, most rec ent episode (or current) mixed, moderate F31.62 [facility] [address] [facility] [id number] [address] [place] [phone] Feb, Bipolar I disorder, most rec ent episode (or current) mixed, moderate F31.62 [facility] [address] [facility] [id number] [address] [place] [id number] Feb, Chronic pain G89.29 [facility] [address] [facility] [id number] [address] [place] [id number] Feb, Decubitus ulcer of right josselin t, stage 3 L89.893 and BMI 50.0-59.9, adult Z68.43 [facility] [address] [facility] [id number] [address] [place] [id number] Feb, Bipolar I disorder, most rec ent episode (or current) mixed, moderate F31.62 [facility] [address] [facility] [id number] [address] [place] [id number] Feb, [facility] [address] [facility] [id number] [address] [place] [id number] January, [facility] [address] [facility] [id number] [address] [place] [id number] January, Chronic pain G89.29 [facility] [address] [facility] [id number] [address] [place] [id number] January, Bipolar I disorder, most rec ent episode (or current) mixed, moderate F31.62 [place] [address] [place] [id number] [address] [place] [id number] January, Bipolar I disorder, most rec ent episode (or current) mixed, moderate F31.62 [facility] [address] [place] [id number] [address] [place] [address] [address] Dec, Bipolar I disorder, most rec ent episode (or current) mixed, moderate F31.62 and BMI 50.0-59.9, adult Z68.43 [place] [address] [address] Dec, Bipolar I disorder, most rec ent episode (or current) mixed, moderate F31.62 [place] [address] [address] Dec, Chronic pain G89.29 [place] [address] [address] Dec, DM neuro manif type II E11.4 9 ; Right flank pain R10.9 ; skilled nursing 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 Z79.891 ; Encounter for medication monitoring Z51.81 and BMI 50.0-59.9, adult Z68.43 [place] [address] [address] Dec, Bipolar I disorder, most rec ent episode (or current) mixed, moderate F31.62 [place] [address] [place] [id number] [address] [place] [address] Nov, Bipolar I disorder, most rec ent episode (or current) mixed, moderate F31.62 [place] [address] [place] [id number] [address] [place] [address] Nov, Chronic pain G89.29 [place] [address] [place] [id number] [place] [address] Nov, Bipolar I disorder, most rec ent episode (or current) mixed, moderate F31.62 [place] [address] [place] [id number] [place] [address] Nov, Hypokalemia E87.6 [place] [address] [place] [id number] [place] [phone] Nov, Bipolar I disorder, most rec ent episode (or current) mixed, moderate F31.62 [place] [address] [address] Oct, Chronic pain G89.29 [place] [address] [address] Oct, BMI 50.0-59.9, adult Z68.43 and Bipolar I disorder, most recent episode (or current) mixed, moderate F31.62 [place] [address] [address] Oct, Bipolar I disorder, most rec ent episode (or current) mixed, moderate F31.62 [place] [address] [address] Oct, [place] [address] [address] Oct, Hypokalemia E87.6 [place] [address] [place] [id number] [place] [address] Oct, DM neuro manif type II E11.4 9 [place] [address] [address] Oct, Bipolar I disorder, most rec ent episode (or current) mixed, moderate F31.62 [place] [address] [address] Oct, Bipolar I disorder, most rec ent episode (or current) mixed, moderate F31.62 [place] [address] [place] [id number] [place] [id number] 14 Oct, 2017 Hyperkalemia E87.5 ; Falling R29.6 ; BMI 50.0-59.9, adult Z68.43 and Acute left ankle pain M25.572 [place] [id number] [place] [address] 08 Oct, 2017 DM neuro manif type II E11.4 9 [place] [address] [place] [id number] [address] [place] [phone] Oct, [place] [address] [place] [id number] [place] [address] Sep, Chronic pain G89.29 [place] [address] [place] [id number] [address] [place] [phone] Sep, [place] [address] [place] [id number] [place] [address] Sep, Bilateral primary osteoarthr itis of knee M17.0 [place] [address] [address] Sep, Generalized edema R60.1 [place] [address] [address] 16 Sep, 2017 Bipolar I disorder, most rec ent episode (or current) mixed, moderate F31.62 [place] [address] [address] 15 Sep, 2017 Hypoxia R09.02 ; Other hyper volemia E87.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 ; Anemia of chronic illness D63.8 and BMI 50.0- 59.9, adult Z68.43 [place] [address] [address] Sep, [place] [address] [place] [id number] [place] [address] Sep, Bipolar I disorder, most rec ent episode (or current) mixed, moderate F31.62 [place] [address] [place] [address] Aug, Chronic pain G89.29 [facility] [address] [facility] [id number] [address] [place] [phone] Aug, Generalized edema R60.1 [facility] [address] [facility] [id number] [address] [place] [id number] Aug, [facility] [address] [facility] [id number] [address] [place] [id number] Aug, [facility] [address] [facility] [id number] [address] [place] [id number] 14 Aug, 2017 Bipolar I disorder, most rec ent episode (or current) mixed, moderate F31.62 [place] [address] [place] [id number] [address] [place] [id number] 07 Aug, 2017 Bipolar I disorder, most rec ent episode (or current) mixed, moderate F31.62 [place] [address] [place] [id number] [address] [place] [address] Aug, Chronic pain G89.29 [facility] [address] [facility] [id number] [address] [place] [address] 30 Jul, 2017 Bipolar I disorder, most rec ent episode (or current) mixed, moderate F31.62 [facility] [address] [facility] [id number] [address] [place] [id number] Jul, Bipolar I disorder, most rec ent episode (or current) mixed, moderate F31.62 and BMI 60.0-69.9, adult Z68.44 [facility] [address] [facility] [id number] [address] [place] [id number] 16 Jul, 2017 Bipolar I disorder, most rec ent episode (or current) mixed, moderate F31.62 [facility] [address] [facility] [id number] [address] [place] [id number] 06 Jul, 2017 Chronic pain G89.29 [facility] [address] [place] [id number] [address] [place] [address] Jul, Bipolar I disorder, most rec ent episode (or current) mixed, moderate F31.62 [facility] [address] [facility] [id number] [address] [place] [address] Jun, Polyneuropathy associated wi th underlying disease G63 and Diabetes E11.9 [facility] [address] [facility] [id number] [address] [place] [id number] 16 Jun, 2017 Bipolar I disorder, most rec ent episode (or current) mixed, moderate F31.62 [facility] [address] [facility] [id number] [address] [place] [id number] Jun, Chronic pain G89.29 [facility] [address] [facility] [id number] [address] [place] [phone] May, Bipolar I disorder, most rec ent episode (or current) mixed, moderate F31.62 [facility] [address] [place] [id number] [address] [place] [phone] May, Bipolar I disorder, most rec ent episode (or current) mixed, moderate F31.62 [facility] [address] [facility] [id number] [address] [place] [id number] 20 May, 2017 Diabetic polyneuropathy asso ciated with type 2 diabetes mellitus E11.42 [facility] [address] [facility] [id number] [address] [place] [id number] 18 May, 2017 Bipolar I disorder, most rec ent episode (or current) mixed, moderate F31.62 [facility] [address] [facility] [id number] [address] [place] [id number] 13 May, 2017 Bipolar I disorder, most rec ent episode (or current) mixed, moderate F31.62 [facility] [address] [facility] [id number] [address] [place] [address] May, Chronic pain G89.29 [facility] [address] [facility] [id number] [address] [place] [id number] Apr, Bipolar I disorder, most rec ent episode (or current) mixed, moderate F31.62 [facility] [address] [id number] [address] [place] [id number] Apr, [facility] [address] [id number] [address] [place] [id number] Apr, Chronic pain G89.29 and DM n euro manif type II E11.49 [facility] [address] [id number] [address] [place] [id number] Apr, [facility] [address] [id number] [address] [place] [id number] Apr, Bipolar I disorder, most rec ent episode (or current) mixed, moderate F31.62 [facility] [address] [facility] [id number] [address] [place] [address] Apr, Chronic pain G89.29 [facility] [address] [facility] [id number] [address] [place] [id number] Apr, Iliotibial band syndrome, le ft M76.32 [facility] [address] [facility] [id number] [address] [place] [id number] Apr, Bipolar I disorder, most rec ent episode (or current) mixed, moderate F31.62 [facility] [address] [facility] [id number] [address] [place] [id number] Mar, Bipolar I disorder, most rec ent episode (or current) mixed, moderate F31.62 [facility] [address] [facility] [id number] [address] [place] [id number] Mar, Bipolar I disorder, most rec ent episode (or current) mixed, moderate F31.62 [facility] [address] [facility] [id number] [address] [place] [id number] Mar, [facility] [address] [facility] [id number] [address] [place] [id number] Mar, Bipolar I disorder, most rec ent episode (or current) mixed, moderate F31.62 [facility] [address] [facility] [id number] [address] [place] [id number] Mar, Chronic pain G89.29 [facility] [address] [facility] [id number] [address] [place] [id number] Mar, Bipolar I disorder, most rec ent episode (or current) mixed, moderate F31.62 [facility] [address] [facility] [id number] [address] [place] [id number] Mar, Bipolar I disorder, most rec ent episode (or current) mixed, moderate F31.62 [facility] [address] [facility] [id number] [address] [place] [id number] Mar, Acute pain of left knee M25. 562 ; Left hip pain M25.552 ; Generalized edema R60.1 and Tongue swelling R22.0 [facility] [address] [facility] [id number] [address] [place] [id number] Mar, [facility] [address] [facility] [id number] [address] [place] [id number] Feb, Chronic pain G89.29 [facility] [address] [facility] [id number] [address] [place] [id number] Feb, Diabetes E11.9 [facility] [address] [facility] [id number] [address] [place] [id number] January, Chronic pain G89.29 [facility] [address] [facility] [id number] [address] [place] [phone] January, [facility] [address] [facility] [id number] [address] [place] [id number] January, Bipolar I disorder, most rec ent episode (or current) mixed, moderate F31.62 [facility] [address] [facility] [id number] [address] [place] [id number] Dec, Bipolar I disorder, most rec ent episode (or current) mixed, moderate F31.62 [facility] [address] [facility] [id number] [address] [place] [id number] 24 Apr, 2017 Chronic pain G89.29 [facility] [address] [id number] [address] [place] [id number] Dec, Bipolar I disorder, most rec ent episode (or current) mixed, moderate F31.62 [facility] [address] [facility] [id number] [address] [place] [id number] Dec, Diabetes E11.9 ; Essential h ypertension I10 ; Chronic pain G89.29 and Morbid obesity E66.01 [facility] [address] [facility] [id number] [address] [place] [id number] Dec, [facility] [address] [facility] [id number] [address] [place] [id number] Dec, Bipolar I disorder, most rec ent episode (or current) mixed, moderate F31.62 [facility] [address] [facility] [id number] [address] [place] [id number] Dec, Bipolar I disorder, most rec ent episode (or current) mixed, moderate F31.62 [facility] [address] [facility] [id number] [address] [place] [id number] Nov, Chronic pain G89.29 [facility] [address] [facility] [id number] [address] [place] [id number] Nov, Bipolar I disorder, most rec ent episode (or current) mixed, moderate F31.62 [facility] [address] [facility] [id number] [address] [place] [id number] Nov, [facility] [address] [facility] [id number] [address] [place] [id number] Nov, Bipolar I disorder, most rec ent episode (or current) mixed, moderate F31.62 [facility] [address] [facility] [id number] [address] [place] [id number] Nov, Bipolar I disorder, most rec ent episode (or current) mixed, moderate F31.62 [facility] [address] [facility] [id number] [address] [place] [id number] Nov, [facility] [address] [id number] [address] [place] [id number] Nov, [facility] [address] [id number] [address] [place] [phone] Nov, [facility] [address] [facility] [id number] [address] [place] [id number] Oct, Chronic pain G89.29 [facility] [address] [facility] [id number] [address] [place] [id number] Oct, Bipolar I disorder, most rec ent episode (or current) mixed, moderate F31.62 [facility] [address] [id number] [address] [place] [id number] Oct, [facility] [address] [facility] [id number] [address] [place] [id number] Oct, Chronic pain G89.29 ; Diabet es E11.9 ; Anxiety F41.9 and 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 [facility] [address] [facility] [id number] [address] [place] [id number] Oct, [facility] [address] [facility] [id number] [address] [place] [phone] Oct, Diabetes E11.9 [facility] [address] [facility] [id number] [address] [place] [id number] Oct, Bipolar I disorder, most rec ent episode (or current) mixed, moderate F31.62 [facility] [address] [facility] [id number] [address] [place] [id number] Sep, Chronic pain G89.29 [facility] [address] [facility] [id number] [address] [place] [id number] Sep, Chronic pain G89.29 [facility] [address] [facility] [id number] [address] [place] [id number] Aug, Chronic pain G89.29 [facility] [address] [facility] [id number] [address] [place] [id number] Jul, [facility] [address] [place] [id number] [address] [place] [id number] Jul, Diabetes E11.9 [facility] [address] [place] [id number] [address] [place] [id number] Jul, Chronic pain G89.29 [place] [address] [place] [id number] [address] [place] [id number] Jul, Bipolar I disorder, most rec ent episode (or current) mixed, moderate F31.62 [place] [address] [place] [id number] [place] [address] Jun, Bipolar I disorder, most rec ent episode (or current) mixed, moderate F31.62 [place] [address] [place] [id number] [address] [place] [id number] Jun, [place] [address] [place] [id number] [address] [place] [id number] Jun, Bipolar I disorder, most rec ent episode (or current) mixed, moderate F31.62 [place] [address] [place] [id number] [address] [place] [id number] May, Insomnia, unspecified type G 47.00 [place] [address] [place] [id number] [address] [place] [id number] May, Bipolar I disorder, most rec ent episode (or current) mixed, moderate F31.62 [place] [address] [place] [id number] [address] [place] [id number] 14 May, 2016 [place] [address] [place] [id number] [place] [phone] 08 May, 2016 Bipolar I disorder, most rec ent episode (or current) mixed, moderate F31.62 [place] [address] [place] [id number] [address] [place] [id number] May, Diabetes E11.9 and Essential hypertension I10 [facility] [address] [id number] [address] [place] [id number] Apr, Chronic pain G89.29 [facility] [address] [facility] [id number] [address] [place] [id number] Apr, Bipolar I disorder, most rec ent episode (or current) mixed, moderate F31.62 [place] [address] [facility] [id number] [address] [place] [id number] Apr, [facility] [address] [facility] [id number] [address] [place] [id number] Apr, [place] [address] [facility] [id number] [address] [place] [id number] Mar, Chronic pain G89.29 ; Headac he, unspecified headache type R51 ; Neuropathy G62.9 ; Pain of right hip joint M25.551 and Essential hypertension I10 [place] [address] [facility] [id number] [address] [place] [address] Mar, Chronic pain G89.29 [place] [address] [facility] [id number] [address] [place] [id number] Mar, Bipolar I disorder, most rec ent episode (or current) mixed, moderate F31.62 [place] [address] [facility] [id number] [address] [place] [id number] Feb, Bipolar I disorder, most rec ent episode (or current) mixed, moderate F31.62 and Insomnia, unspecified type G47.00 [place] [address] [id number] [address] [place] [address] Feb, Chronic pain G89.29 [place] [address] [facility] [id number] [address] [place] [id number] Feb, Bipolar I disorder, most rec ent episode (or current) mixed, moderate F31.62 [place] [address] [facility] [id number] [address] [place] [id number] January, Bipolar I disorder, most rec ent episode (or current) mixed, moderate F31.62 [facility] [address] [id number] [address] [place] [id number] January, Chronic pain G89.29 [facility] [address] [facility] [id number] [address] [place] [id number] January, Chronic pain G89.29 and Esse ntial hypertension I10 [facility] [address] [id number] [address] [place] [id number] January, Bipolar I disorder, most rec ent episode (or current) mixed, moderate F31.62 [facility] [address] [id number] [address] [place] [id number] Dec, [facility] [address] [facility] [id number] [address] [place] [id number] Dec, [facility] [address] [facility] [id number] [address] [place] [id number] Dec, [facility] [address] [facility] [id number] [address] [place] [id number] Dec, [facility] [address] [facility] [id number] [address] [place] [id number] Nov, Reactive airway disease J45. 909 [facility] [address] [facility] [id number] [address] [place] [id number] Nov, [facility] [address] [id number] [address] [place] [id number] Nov, [facility] [address] [facility] [id number] [address] [place] [id number] Nov, [facility] [address] [facility] [id number] [address] [place] [id number] Nov, [facility] [address] [facility] [id number] [address] [place] [id number] Nov, Onychomycosis B35.1 ; Hammer toe M20.40 ; Henderson or callus L84 and DM neuro manif type II E11.49 [facility] [address] [place] [id number] [address] [place] [address] Nov, Chronic pain G89.29 ; Leukoc ytosis D72.829 and Diabetes E11.9 [facility] [address] [facility] [id number] [address] [place] [id number] Nov, [facility] [address] [place] [id number] [address] [place] [id number] Oct, Bronchitis J40 [facility] [address] [place] [id number] [address] [place] [id number] Oct, [place] [address] [address] Oct, [place] [address] [address] Oct, Mastoiditis, unspecified lat erality H70.90 and Type 2 diabetes mellitus with complication E11.8 [place] [address] [place] [id number] [address] [place] [id number] Sep, [place] [address] [id number] Sep, Dysuria R30.0 ; Cough R05 ; Benign prostatic hyperplasia with lower urinary tract symptoms, unspecified morphology N40.1 ; Hypokalemia E87.6 and Eustachian tube dysfunction, unspecified laterality H69.80 [place] [id number] [place] [id number] Sep, Moderate mixed bipolar I dis order F31.62 [place] [address] [id number] Sep, Hypokalemia E87.6 [place] [address] [address] [place] [id number] [address] [place] [id number] Sep, [place] [address] [id number] Sep, Upper respiratory tract infe ction, unspecified type J06.9 [facility] [address] [id number] [address] [place] [id number] Aug, [facility] [address] [id number] [address] [place] [id number] Aug, Dysuria R30.0 [facility] [address] [id number] [address] [place] [id number] Aug, [facility] [address] [id number] [address] [place] [id number] Jul, [facility] [address] [id number] [address] [place] [id number] Jul, [facility] [address] [id number] [address] [place] [id number] Jul, [facility] [address] [id number] [address] [place] [id number] Jul, [facility] [address] [id number] [address] [place] [id number] Jun, [facility] [address] [id number] [address] [place] [phone] Jun, [facility] [address] [id number] [address] [place] [phone] Jun, [facility] [address] [id number] [address] [place] [id number] May, [facility] [address] [id number] [address] [place] [id number] May, Bipolar I disorder, most rec ent episode (or current) mixed, moderate 296.62 [facility] [address] [id number] [address] [place] [id number] 16 May, 2015 [facility] [address] [id number] [address] [place] [id number] May, Bipolar I disorder, most rec ent episode (or current) mixed, moderate 296.62 and Major depressive disorder, recurrent episode, severe, specified as with psychotic behavior 296.34 [facility] [address] [id number] [address] [place] [address] May, Bipolar I disorder, most rec ent episode (or current) mixed, moderate 296.62 [facility] [address] [id number] [address] [place] [address] May, [facility] [address] [id number] [address] [place] [address] Apr, [facility] [address] [id number] [address] [place] [address] Apr, [facility] [address] [place] [id number] [address] [place] [phone] Apr, Unspecified disorder of kidn ey and ureter 593.9 and Diabetes mellitus type 2, uncontrolled 250.02 [facility] [address] [place] [id number] [address] [place] [address] Apr, [facility] [address] [id number] [address] [place] [address] Apr, [facility] [address] [id number] [address] [place] [address] Apr, [facility] [address] [id number] [address] [place] [phone] Apr, [facility] [address] [id number] [address] [place] [address] Apr, Diabetes mellitus type II, u ncontrolled 250.02 [facility] [address] [id number] [address] [place] [address] Apr, [facility] [address] [id number] [address] [place] [address] Mar, [facility] [address] [id number] [address] [place] [phone] Mar, [facility] [address] [id number] [address] [place] [address] Mar, [facility] [address] [id number] [address] [place] [address] Mar, Major depressive disorder, r ecurrent episode, severe, specified as with psychotic behavior 296.34 and Bipolar I disorder, most recent episode (or current) mixed, moderate 296.62 [facility] [id number] [place] [address] Mar, Diabetes 250.00 ; Anuria 788 .5 ; Nausea and vomiting 787.01 and Diarrhea 787.91 [facility] [address] [id number] [address] [place] [address] Mar, Diabetes 250.00 [facility] [address] [place] [id number] [address] [place] [address] Mar, [facility] [address] [place] [id number] [address] [place] [address] Mar, Diabetes 250.00 [facility] [address] [id number] [address] [place] [address] Mar, [facility] [address] [id number] [address] [place] [phone] Mar, [facility] [address] [id number] [address] [place] [phone] Mar, [facility] [address] [id number] [address] [place] [address] Mar, [facility] [address] [id number] [address] [place] [address] Mar, Bipolar I disorder, most rec ent episode (or current) mixed, moderate 296.62 and Major depressive disorder, recurrent episode, severe, specified as with psychotic behavior 296.34 [facility] [address] [id number] [address] [place] [address] Mar, Magnesium deficiency 275.2 ; Hypokalemia 276.8 ; Nausea & vomiting 787.01 and Diabetes mellitus type 2, uncontrolled 250.02 [place] [address] [address] Feb, [facility] [address] [address] Feb, Bipolar I disorder, most rec ent episode (or current) mixed, moderate 296.62 [place] [address] [address] Feb, Nausea and vomiting 787.01 ; Left elbow pain 719.42 ; Anuria 788.5 and Diabetes 250.00 [place] [address] [address] Feb, [place] [address] [address] Feb, Hypopotassemia 276.8 and Hyp okalemia 276.[address] [address] Feb, Hypopotassemia 276.8 and Hyp okalemia 276.8 [place] [address] [address] Feb, Seborrheic keratoses 702.19 [place] [address] [address] Feb, Hypopotassemia 276.8 and Low magnesium levels 275.2 [place] [address] [address] January, [place] [address] [address] January, [place] [address] [address] January, [place] [address] [address] January, Scalp lesion 709.9 [facility] [address] [id number] [address] [place] [phone] January, [facility] [address] [id number] [address] [place] [address] Dec, Tear of medial cartilage or meniscus of knee, current 836.0 and 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 [facility] [address] [id number] [address] [place] [phone] Dec, [facility] [address] [id number] [address] [place] [address] Dec, [facility] [address] [id number] [address] [place] [address] Dec, Squamous cell carcinoma, 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 [facility] [address] [id number] [address] [place] [phone] Dec, [facility] [address] [id number] [address] [place] [address] Dec, [facility] [address] [id number] [address] [place] [phone] Nov, [facility] [address] [id number] [address] [place] [address] Nov, [facility] [address] [id number] [address] [place] [phone] Nov, [facility] [address] [id number] [address] [place] [phone] Nov, [facility] [address] [id number] [address] [place] [phone] Nov, [facility] [address] [id number] [address] [place] [phone] Nov, [facility] [address] [id number] [address] [place] [phone] Nov, [facility] [address] [id number] [address] [place] [address], [place] [address] Nov, 2014 [facility] [address] [id number] [address] [place] [address], [place] [address] Nov, 2014 [facility] [address] [id number] [address] [place] [address], [place] [address] Nov, 2014 [facility] [address] [id number] [address] [place] [address], [place] [address] Nov, 2014 [facility] [address] [id number] [address] [place] [address], [place] [address] Nov, 2014 [facility] [address] [id number] [address] [place] [address], [place] [address] Oct, 2014 [facility] [address] [id number] [address] [place] [address], [place] [address] Oct, 2014 [facility] [address] [id number] [address] [place] [address], [place] [address] Oct, 2014 [facility] [address] [id number] [address] [place] [address], [place] [address] Oct, 2014 [facility] [address] [id number] [address] [place] [address], [place] [address] Oct, 2014 [facility] [address] [id number] [address] [place] [phone] Oct, 2014 [facility] [address] [id number] [address] [place] [id number] Oct, 2014 [facility] [address] [id number] [address] [place] [address], [place] [address] Oct, 2014 [facility] [address] [id number] [address] [place] [phone] Oct, 2014 [facility] [address] [id number] [address] [place] [id number] Sep, [facility] [address] [id number] [address] [place] [phone] Sep, [facility] [address] [id number] [address] [place] [address], [place] [address] Sep, [facility] [address] [id number] [address] [place] [address], [place] [address] Sep, [facility] [address] [id number] [address] [place] [address], [place] [address] Sep, [facility] [address] [id number] [address] [place] [address], [place] [address] Sep, [facility] [address] [id number] [address] [place] [address], [place] [address] Sep, [facility] [address] [id number] [address] [place] [address], [place] [address] Sep, [facility] [address] [id number] [address] [place] [address], [place] [address] Sep, [facility] [address] [id number] [address] [place] [address], [place] [address] Sep, [facility] [address] [id number] [address] [place] [address], [place] [address] Sep, [facility] [address] [id number] [address] [place] [address], [place] [address] Sep, [facility] [address] [id number] [address] [place] [address], [place] [address] Sep, [facility] [address] [id number] [address] [place] [address], [place] [address] Sep, [facility] [address] [id number] [address] [place] [address], [place] [address] Sep, [facility] [address] [id number] [address] [place] [address], [place] [address] Sep, [facility] [address] [id number] [address] [place] [address], [place] [address] Aug, [facility] [address] [id number] [facility] [place] [address] Aug, [facility] [address] [id number] [facility] [place] [address] Aug, [facility] [address] [id number] [facility] [place] [address] Aug, [facility] [address] [id number] [facility] [place] [address] Aug, [facility] [address] [id number] [facility] [place] [address] Aug, [facility] [address] [id number] [facility] [place] [address] Aug, [facility] [address] [id number] [facility] [place] [address] Aug, [facility] [address] [id number] [address] [place] [address], [place] [address] Aug, [facility] [address] [id number] [address] [place] [address], [place] [address] Aug, [facility] [address] [id number] [address] [place] [address], [place] [address] Aug, [facility] [place] [id number] Aug, [facility] [address] [id number] [address] [place] [address], [place] [address] Aug, [facility] [address] [id number] [address] [place] [address], [place] [address] Aug, [facility] [address] [id number] [facility] [place] [address] Aug, [facility] [address] [id number] [facility] [place] [address] Aug, [facility] [address] [id number] [facility] [place] [address] Aug, [facility] [address] [id number] [address] [place] [address], [place] [address] Aug, [facility] [address] [id number] [address] [place] [address], [place] [address] Aug, [facility] [address] [id number] [address] [place] [address], [place] [address] Aug, [facility] [address] [id number] [address] [place] [address], [place] [address] Aug, [facility] [address] [id number] [address] [place] [address], [place] [address] Aug, [facility] [address] [id number] [address] [place] [address], [place] [address] Aug, [facility] [address] [id number] [address] [place] [address], [place] [address] Aug, [facility] [address] [id number] [address] [place] [address], [place] [address] Aug, [facility] [address] [id number] [address] [place] [address], [place] [address] Aug, [facility] [address] [id number] [address] [place] [address], [place] [address] Aug, [facility] [address] [id number] [address] [place] [address], [place] [address] Aug, [facility] [address] [id number] [address] [place] [address], [place] [address] Aug, [facility] [address] [id number] [address] [place] [address], [place] [address] Aug, [facility] [address] [id number] [address] [place] [address], [place] [address] Jul, [facility] [address] [id number] [address] [place] [address], [place] [address] Jul, [facility] [address] [id number] [address] [place] [address] Jul, [facility] [address] [id number] [address] [place] [address], [place] [address] Jul, [facility] [address] [id number] [address] [place] [address], [place] [address] Jul, [facility] [address] [id number] [address] [place] [address], [place] [address] Jul, [facility] [address] [id number] [address] [place] [address], [place] [address] Jul, [facility] [address] [id number] [address] [place] [address], [place] [address] Jul, [facility] [address] [id number] [address] [place] [address], [place] [address] Jul, [facility] [address] [id number] [address] [place] [address], [place] [address] Jul, [facility] [address] [id number] [address] [place] [address], [place] [address] Jun, [facility] [address] [id number] [address] [place] [address], [place] [address] Jun, [facility] [address] [id number] [address] [place] [address], [place] [address] Jun, [facility] [address] [id number] [address] [place] [address] Jun, [facility] [address] [id number] [address] [place] [address] Jun, [facility] [address] [id number] [address] [place] [address] Jun, [facility] [address] [id number] [address] [place] [address], [place] [address] Jun, [facility] [address] [id number] [address] [place] [id number] Jun, [facility] [address] [id number] [facility] [place] [address] Jun, [facility] [address] [id number] [address] [place] [address], [place] [address] Jun, [facility] [address] [id number] [address] [place] [address], [place] [address] 29 May, 2013 [facility] [address] [id number] [address] [place] [address], [place] [address] 29 Sep, 2013 [facility] [address] [id number] [address] [place] [address], [place] [address] 26 May, 2013 [facility] [address] [id number] [address] [place] [address], [place] [address] 26 May, 2013 [facility] [address] [id number] [address] [place] [address], [place] [address] 17 May, 2013 [facility] [address] [id number] [address] [place] [address], [place] [address] 17 May, 2013 [facility] [address] [id number] [address] [place] [address], [place] [address] 15 May, 2013 [facility] [address] [id number] [address] [place] [address], [place] [address] 15 May, 2013 [facility] [address] [id number] [address] [place] [address], [place] [address] 15 May, 2013 [facility] [address] [id number] [address] [place] [address], [place] [address] 15 May, 2013 [facility] [address] [id number] [address] [place] [address], [place] [address] 10 Sep, 2013 [facility] [address] [id number] [address] [place] [address], [place] [address] 10 Sep, 2013 [facility] [address] [id number] [address] [place] [address], [place] [address] 09 Sep, 2013 [facility] [address] [id number] [address] [place] [address], [place] [address] May, [facility] [address] [id number] [facility] [place] [address] May, [facility] [address] [id number] [facility] [place] [address] May, [facility] [address] [id number] [facility] [place] [address] Apr, [facility] [address] [id number] [address] [place] [address], [place] [address] Apr, [facility] [address] [id number] [address] [place] [address], [place] [address] Apr, [facility] [address] [id number] [address] [place] [address], [place] [address] Apr, [facility] [address] [id number] [address] [place] [address], [place] [address] Apr, [facility] [address] [id number] [address] [place] [address], [place] [address] Apr, [facility] [address] [id number] [address] [place] [address], [place] [address] Apr, [facility] [address] [id number] [address] [place] [address], [place] [address] Apr, [facility] [address] [id number] [address] [place] [address], [place] [address] Apr, [facility] [address] [id number] [address] [place] [address], [place] [address] Apr, [facility] [address] [id number] [address] [place] [address], [place] [address] Apr, [facility] [address] [id number] [address] [place] [address], [place] [address] Apr, [facility] [address] [id number] [address] [place] [address], [place] [address] Apr, [facility] [address] [id number] [facility] [place] [address] Apr, [facility] [address] [id number] [address] [place] [address], [place] [address] Apr, [facility] [address] [id number] [address] [place] [address], [place] [address] Mar, [facility] [address] [id number] [address] [place] [address], [place] [address] Mar, [facility] [address] [id number] [address] [place] [address], [place] [address] Mar, [facility] [address] [id number] [address] [place] [address], [place] [address] Mar, [facility] [address] [id number] [address] [place] [address], [place] [address] Mar, [facility] [address] [id number] [address] [place] [address], [place] [address] Mar, [facility] [address] [id number] [address] [place] [address], [place] [address] Mar, [facility] [address] [id number] [address] [place] [address], [place] [address] Mar, [facility] [address] [id number] [address] [place] [address], [place] [address] Mar, [facility] [address] [id number] [address] [place] [address], [place] [address] Mar, [facility] [address] [id number] [address] [place] [address], [place] [address] Mar, [facility] [address] [id number] [address] [place] [address], [place] [address] Mar, [facility] [address] [id number] [address] [place] [address], [place] [address] Mar, [facility] [address] [id number] [address] [place] [address], [place] [address] Mar, [facility] [address] [id number] [address] [place] [address] Mar, 2013 [facility] [address] [id number] [address] [place] [address] Mar, 2013 [facility] [address] [id number] [address] [place] [address] Mar, [facility] [address] [id number] [address] [place] [address] Mar, [facility] [address] [id number] [address] [place] [address] Feb, [facility] [address] [id number] [address] [place] [address], [place] [address] Feb, [facility] [address] [id number] [address] [place] [address], [place] [address] Feb, [facility] [address] [id number] [address] [place] [address], [place] [address] Feb, [facility] [address] [id number] [address] [place] [address], [place] [address] Feb, [facility] [address] [id number] [address] [place] [address], [place] [address] Feb, [facility] [address] [id number] [address] [place] [address], [place] [address] Feb, [facility] [address] [id number] [address] [place] [address], [place] [address] Feb, [facility] [address] [id number] [address] [place] [address], [place] [address] Feb, [facility] [address] [id number] [address] [place] [address], [place] [address] Feb, [facility] [address] [id number] [address] [place] [address], [place] [address] Feb, [facility] [address] [id number] [address] [place] [address], [place] [address] Feb, [facility] [address] [id number] [address] [place] [address], [place] [address] Feb, [facility] [address] [id number] [address] [place] [address], [place] [address] Feb, [facility] [address] [id number] [address] [place] [address], [place] [address] January, [facility] [address] [id number] [address] [place] [address], [place] [address] January, [facility] [address] [id number] [address] [place] [address], [place] [address] January, [facility] [address] [id number] [address] [place] [address], [place] [address] January, [facility] [address] [id number] [address] [place] [address], [place] [address] January, [facility] [address] [id number] [address] [place] [address], [place] [address] January, [facility] [address] [id number] [address] [place] [address], [place] [address] January, [facility] [address] [id number] [address] [place] [address], [place] [address] January, [facility] [address] [id number] [address] [place] [address], [place] [address] January, [facility] [address] [id number] [address] [place] [address], [place] [address] January, [facility] [address] [id number] [address] [place] [address], [place] [address] January, [facility] [address] [id number] [address] [place] [address], [place] [address] January, [facility] [address] [id number] [address] [place] [address], [place] [address] January, [facility] [address] [id number] [facility] [place] [address] January, [facility] [address] [id number] [facility] [place] [address] Dec, [facility] [address] [id number] [facility] [place] [address] Dec, [facility] [address] [id number] [address] [place] [address], [place] [address] Dec, [facility] [address] [id number] [address] [place] [address], [place] [address] Dec, [facility] [address] [id number] [address] [place] [address], [place] [address] Dec, [facility] [address] [id number] [address] [place] [address], [place] [address] Dec, [facility] [address] [id number] [address] [place] [address], [place] [address] Dec, [facility] [address] [id number] [address] [place] [address], [place] [address] Dec, [facility] [address] [id number] [address] [place] [address], [place] [address] Dec, [facility] [address] [id number] [address] [place] [address], [place] [address] Dec, [facility] [address] [id number] [address] [place] [address], [place] [address] Nov, [facility] [address] [id number] [address] [place] [address], [place] [address] Nov, [facility] [address] [id number] [address] [place] [address], [place] [address] Nov, [facility] [address] [id number] [address] [place] [address], [place] [address] Nov, [facility] [address] [id number] [address] [place] [address], [place] [address] Nov, [facility] [address] [id number] [address] [place] [address] 08 Nov, 2013 [facility] [address] [id number] [address] [place] [address], [place] [address] Nov, [facility] [address] [id number] [address] [place] [address], [place] [address] Nov, [facility] [address] [id number] [address] [place] [address], [place] [address] Nov, [facility] [address] [id number] [address] [place] [address], [place] [address] Nov, [facility] [address] [id number] [address] [place] [address], [place] [address] Oct, [facility] [address] [id number] [address] [place] [address], [place] [address] Oct, [facility] [address] [id number] [address] [place] [address], [place] [address] Oct, [facility] [address] [id number] [address] [place] [address], [place] [address] Oct, [facility] [address] [id number] [address] [place] [address], [place] [address] Oct, [facility] [address] [id number] [address] [place] [address], [place] [address] Oct, [facility] [address] [id number] [address] [place] [address], [place] [address] 14 Oct, 2013 [facility] [address] [id number] [address] [place] [address], [place] [address] 14 Oct, 2013 [facility] [address] [id number] [address] [place] [address], [place] [address] 05 Oct, 2013 [facility] [address] [id number] [address] [place] [address], [place] [address] Oct, [facility] [address] [id number] [address] [place] [address], [place] [address] 04 Oct, 2013 [facility] [address] [id number] [address] [place] [address], [place] [address] Oct, [facility] [address] [id number] [address] [place] [address], [place] [address] Oct, [facility] [address] [id number] [address] [place] [address], [place] [address] Oct, [facility] [address] [id number] [address] [place] [address], [place] [address] Sep, [facility] [address] [id number] [address] [place] [address], [place] [address] Sep, [facility] [address] [id number] [address] [place] [address], [place] [address] Sep, [facility] [address] [id number] [address] [place] [address], [place] [address] Sep, [facility] [address] [id number] [address] [place] [address], [place] [address] Sep, [facility] [address] [id number] [address] [place] [address], [place] [address] Sep, [facility] [address] [id number] [address] [place] [address], [place] [address] Sep, [facility] [address] [id number] [address] [place] [address], [place] [address] Sep, [facility] [address] [id number] [address] [place] [address], [place] [address] Sep, [facility] [address] [id number] [address] [place] [address], [place] [address] Sep, [facility] [address] [id number] [address] [place] [address], [place] [address] 10 Aug, 2013 [facility] [address] [id number] [address] [place] [address], [place] [address] Aug, [facility] [address] [id number] [address] [place] [address], [place] [address] Jul, [facility] [address] [id number] [address] [place] [address], [place] [address] Jul, [facility] [address] [id number] [address] [place] [address], [place] [address] Jul, [facility] [address] [id number] [address] [place] [address], [place] [address] Jul, [facility] [address] [id number] [address] [place] [address], [place] [address] Jul, [facility] [address] [id number] [address] [place] [address] Jul, [facility] [address] [id number] [address] [place] [address], [place] [address] Jul, [facility] [address] [id number] [address] [place] [address] Jul, [facility] [address] [id number] [address] [place] [address] Jul, [facility] [address] [id number] [address] [place] [address] Jul, [facility] [address] [id number] [address] [place] [address] Jul, [facility] [address] [id number] [address] [place] [address] Jul, [facility] [address] [id number] [address] [place] [address] Jul, [facility] [address] [id number] [address] [place] [address] Jul, [facility] [address] [id number] [address] [place] [address] Jul, [facility] [address] [id number] [address] [place] [address], [place] [address] 05 Jul, 2012 [facility] [address] [id number] [address] [place] [address], [place] [address] Jul, 2012 [facility] [address] [id number] [address] [place] [address], [place] [address] Jul, 2012 [facility] [address] [id number] [address] [place] [address], [place] [address] Jul, 2012 [facility] [address] [id number] [address] [place] [address], [place] [address] Jun, 2012 [facility] [address] [id number] [address] [place] [address], [place] [address] Jun, 2012 [facility] [address] [id number] [address] [place] [address], [place] [address] Jun, 2012 [facility] [address] [id number] [address] [place] [address], [place] [address] Jun, 2012 [facility] [address] [id number] [address] [place] [address], [place] [address] Jun, 2012 [facility] [address] [id number] [address] [place] [address], [place] [address] Jun, 2012 [facility] [address] [id number] [address] [place] [address], [place] [address] Jun, 2012 [facility] [address] [id number] [address] [place] [address], [place] [address] Jun, 2012 [facility] [address] [id number] [address] [place] [address] Jun, [facility] [address] [id number] [address] [place] [address], [place] [address] Jun, [facility] [address] [id number] [address] [place] [address], [place] [address] Jun, [facility] [address] [id number] [address] [place] [address], [place] [address] May, [facility] [address] [id number] [address] [place] [address], [place] [address] 25 May, 2012 [facility] [address] [id number] [address] [place] [address], [place] [address] 19 May, 2012 [facility] [address] [id number] [address] [place] [address], [place] [address] 17 May, 2012 [facility] [address] [id number] [address] [place] [address], [place] [address] 11 May, 2012 [facility] [address] [id number] [address] [place] [address], [place] [address] 10 May, 2012 [facility] [address] [id number] [address] [place] [address], [place] [address] 09 May, 2012 [facility] [address] [id number] [address] [place] [address], [place] [address] 05 May, 2012 [facility] [address] [id number] [address] [place] [address], [place] [address] Apr, [facility] [address] [id number] [address] [place] [address], [place] [address] Apr, [facility] [address] [id number] [address] [place] [address], [place] [address] Apr, [facility] [address] [id number] [address] [place] [address], [place] [address] Apr, [facility] [address] [id number] [address] [place] [address], [place] [address] Apr, [facility] [address] [id number] [address] [place] [address], [place] [address] Mar, [facility] [address] [id number] [address] [place] [address], [place] [address] Mar, [facility] [address] [id number] [address] [place] [address], [place] [address] Mar, [facility] [address] [id number] [address] [place] [address], [place] [address] Mar, [facility] [address] [id number] [address] [place] [address], [place] [address] Mar, [facility] [address] [id number] [address] [place] [address], [place] [address] Mar, [facility] [address] [id number] [address] [place] [address], [place] [address] Mar, [facility] [address] [id number] [address] [place] [address], [place] [address] Mar, [facility] [address] [id number] [address] [place] [address], [place] [address] Feb, [facility] [address] [id number] [address] [place] [address], [place] [address] Feb, [facility] [address] [id number] [address] [place] [address], [place] [address] January, [facility] [address] [id number] [address] [place] [address], [place] [address] January, [facility] [address] [id number] [address] [place] [address], [place] [address] Dec, [facility] [address] [id number] [address] [place] [address], [place] [address] Dec, [facility] [address] [id number] [address] [place] [address], [place] [address] Nov, [facility] [address] [id number] [address] [place] [address], [place] [address] Nov, [facility] [address] [id number] [address] [place] [address], [place] [address] Nov, [facility] [address] [id number] [address] [place] [address], [place] [address] Nov, [facility] [address] [id number] [address] [place] [address], [place] [address] Oct, [facility] [address] [id number] [address] [place] [address], [place] [address] Oct, 2012 [facility] [address] [id number] [address] [place] [address], [place] [address] Oct, [facility] [address] [id number] [address] [place] [address], [place] [address] Oct, 2012 [facility] [address] [id number] [address] [place] [address], [place] [address] 16 Oct, 2012 [facility] [address] [id number] [address] [place] [address], [place] [address] 14 Oct, 2012 [facility] [address] [id number] [address] [place] [address], [place] [address] 08 Oct, 2012 [facility] [address] [id number] [address] [place] [address], [place] [address] 07 Oct, 2012 [facility] [address] [id number] [address] [place] [address], [place] [address] 03 Oct, 2012 [facility] [address] [id number] [address] [place] [address], [place] [address] Sep, [facility] [address] [id number] [address] [place] [address], [place] [address] Sep, [facility] [address] [id number] [address] [place] [address], [place] [address] Sep, [facility] [address] [id number] [address] [place] [address], [place] [address] Sep, [facility] [address] [id number] [address] [place] [address], [place] [address] Sep, [facility] [address] [id number] [address] [place] [address], [place] [address] Sep, [facility] [address] [id number] [address] [place] [address], [place] [address] Sep, [facility] [address] [id number] [address] [place] [address], [place] [address] Sep, [facility] [address] [id number] [address] [place] [address], [place] [address] Aug, [facility] [address] [id number] [address] [place] [address], [place] [address] Aug, [facility] [address] [id number] [address] [place] [address], [place] [address] Aug, [facility] [address] [id number] [address] [place] [address], [place] [address] Aug, [facility] [address] [id number] [address] [place] [address], [place] [address] Aug, [facility] [address] [id number] [address] [place] [address], [place] [address] Aug, [facility] [address] [id number] [address] [place] [address], [place] [address] Aug, [facility] [address] [id number] [address] [place] [address], [place] [address] Aug, [facility] [address] [id number] [address] [place] [address], [place] [address] Jul, [facility] [address] [id number] [address] [place] [address], [place] [address] Jul, [facility] [address] [id number] [address] [place] [address], [place] [address] Jul, [facility] [address] [id number] [address] [place] [address], [place] [address] Jul, [facility] [address] [id number] [address] [place] [address], [place] [address] Jul, [facility] [address] [id number] [address] [place] [address], [place] [address] Jul, [facility] [address] [id number] [address] [place] [address], [place] [address] Jun, [facility] [address] [id number] [address] [place] [address], [place] [address] Jun, [facility] [address] [id number] [address] [place] [address], [place] [address] Jun, [facility] [address] [id number] [address] [place] [address], [place] [address] Jun, [facility] [address] [id number] [address] [place] [address], [place] [address] Jun, [facility] [address] [id number] [address] [place] [address], [place] [address] Jun, [facility] [address] [id number] [address] [place] [address], [place] [address] Jun, [facility] [address] [id number] [address] [place] [address], [place] [address] Jun, [facility] [address] [id number] [address] [place] [address], [place] [address] 10 Jun, 2012 [facility] [address] [id number] [address] [place] [address], [place] [address] 26 May, 2012 [facility] [address] [id number] [address] [place] [address], [place] [address] 24 May, 2012 [facility] [address] [id number] [address] [place] [address], [place] [address] 18 May, 2012 [facility] [address] [id number] [address] [place] [address], [place] [address] 30 Apr, 2012 [facility] [address] [id number] [address] [place] [address], [place] [address] 29 Apr, 2012 [facility] [address] [id number] [address] [place] [address], [place] [address] Apr, [facility] [address] [id number] [address] [place] [address], [place] [address] 14 Apr, 2012 [facility] [address] [id number] [address] [place] [address], [place] [address] Apr, [facility] [address] [id number] [address] [place] [address], [place] [address] Apr, [facility] [address] [id number] [address] [place] [address], [place] [address] Mar, [facility] [address] [id number] [address] [place] [address], [place] [address] Mar, [facility] [address] [id number] [address] [place] [address], [place] [address] Mar, [facility] [address] [id number] [address] [place] [address], [place] [address] Mar, [facility] [address] [id number] [address] [place] [address], [place] [address] Feb, [facility] [address] [id number] [address] [place] [address], [place] [address] Feb, [facility] [address] [id number] [address] [place] [address], [place] [address] Feb, [facility] [address] [id number] [address] [place] [address], [place] [address] Feb, [facility] [address] [id number] [address] [place] [address], [place] [address] Feb, [facility] [address] [id number] [address] [place] [address], [place] [address] January, [facility] [address] [id number] [address] [place] [address], [place] [address] January, [facility] [address] [id number] [address] [place] [address], [place] [address] January, [facility] [address] [id number] [address] [place] [address], [place] [address] January, [facility] [address] [id number] [address] [place] [address], [place] [address] January, [facility] [address] [id number] [address] [place] [address], [place] [address] January, [facility] [address] [id number] [address] [place] [address], [place] [address] 24 Dec, 2011 [facility] [address] [id number] [address] [place] [address], [place] [address] 24 Dec, 2011 [facility] [address] [id number] [address] [place] [address], [place] [address] 17 Dec, 2011 [facility] [address] [id number] [address] [place] [address], [place] [address] 09 Dec, 2011 [facility] [address] [id number] [address] [place] [address], [place] [address] 06 Dec, 2011 [facility] [address] [id number] [address] [place] [address], [place] [address] 27 Nov, 2011 [facility] [address] [id number] [address] [place] [address], [place] [address] 14 Nov, 2011 [facility] [address] [id number] [address] [place] [address], [place] [address] 12 Nov, 2011 [facility] [address] [id number] [address] [place] [address], [place] [address] 07 Nov, 2011 [facility] [address] [id number] [address] [place] [address], [place] [address] 29 Oct, 2011 [facility] [address] [id number] [address] [place] [address], [place] [address] 28 Oct, 2011 [facility] [address] [id number] [address] [place] [address], [place] [address] 24 Oct, 2011 [facility] [address] [id number] [address] [place] [address], [place] [address] 13 Oct, 2011 [facility] [address] [id number] [address] [place] [address], [place] [address] 08 Oct, 2011 [facility] [address] [id number] [address] [place] [address], [place] [address] Sep, [facility] [address] [id number] [address] [place] [address], [place] [address] Sep, [facility] [address] [id number] [address] [place] [address], [place] [address] Sep, [facility] [address] [id number] [address] [place] [address], [place] [address] Sep, [facility] [address] [id number] [address] [place] [address], [place] [address] Sep, [facility] [address] [id number] [address] [place] [address], [place] [address] Sep, [facility] [address] [id number] [address] [place] [address], [place] [address] Aug, [facility] [address] [id number] [address] [place] [address], [place] [address] Aug, [facility] [address] [id number] [address] [place] [id number] Aug, [facility] [address] [id number] [address] [place] [address], [place] [address] Jul, [facility] [address] [id number] [address] [place] [id number] Jul, [facility] [address] [id number] [address] [place] [phone] Jul, [facility] [address] [id number] [address] [place] [id number] Jul, [facility] [address] [id number] [address] [place] [address], [place] [address] Jun, [facility] [address] [id number] [address] [place] [address], [place] [address] Jun, [facility] [address] [id number] [address] [place] [id number] Jun, [facility] [address] [id number] [address] [place] [id number] 10 Jun, 2011 [facility] [address] [id number] [address] [place] [address], [place] [address] 10 Jun, 2011 [facility] [address] [id number] [address] [place] [address], [place] [address] 10 Jun, 2011 [facility] [address] [id number] [address] [place] [address], [place] [address] 11 Mar, 2011 [facility] [address] [id number] [address] [place] [address], [place] [address] 18 Dec, 2010 [facility] [address] [id number] [address] [place] [address], [place] [address] 11 Dec, 2010 [facility] [address] [id number] [address] [place] [address], [place] [address] 18 Nov, 2010 [facility] [address] [id number] [address] [place] [address], [place] [address] 16 Nov, 2010 [facility] [address] [id number] [address] [place] [address], [place] [address] 10 Sep, 2010 [facility] [address] [id number] [address] [place] [address], [place] [address] 31 Aug, 2010 [facility] [address] [id number] [address] [place] [address], [place] [address] 29 Aug, 2010 [facility] [address] [id number] [address] [place] [address], [place] [address] 29 Aug, 2010 [facility] [address] [id number] [address] [place] [address], [place] [address] 29 Aug, 2010 [facility] [address] [id number] [address] [place] [address], [place] [address] 27 Aug, 2010 [facility] [address] [id number] [address] [place] [address], [place] [address] 14 Aug, 2010 [facility] [address] [id number] [address] [place] [address], [place] [address] 08 Aug, 2010 [facility] [address] [id number] [address] [place] [address], [place] [address] 08 Aug, 2010 [facility] [address] [id number] [address] [place] [address], [place] [address] Aug, [facility] [address] [id number] [address] [place] [address], [place] [address] Aug, [facility] [address] [id number] [address] [place] [address], [place] [address] Aug, [facility] [address] [id number] [address] [place] [address], [place] [address] Aug, [facility] [address] [id number] [address] [place] [address], [place] [address] Jul, [facility] [address] [id number] [address] [place] [address], [place] [address] Jul, [facility] [address] [id number] [address] [place] [address], [place] [address] Jul, [facility] [address] [id number] [address] [place] [address], [place] [address] Jul, [facility] [address] [id number] [address] [place] [address], [place] [address] Jul, [facility] [address] [id number] [address] [place] [address], [place] [address] Jul, [facility] [address] [id number] [address] [place] [address], [place] [address] Jun, [facility] [address] [id number] [address] [place] [address], [place] [address] Jun, [facility] [address] [id number] [address] [place] [address], [place] [address] Jun, [facility] [address] [id number] [address] [place] [address], [place] [address] Jun, [facility] [address] [id number] [address] [place] [address], [place] [address] 16 Apr, 2010 [facility] [address] [id number] [address] [place] [address], [place] [address] Mar, [facility] [address] [id number] [address] [place] [address], [place] [address] Feb, [facility] [address] [id number] [address] [place] [address], [place] [address] January, [facility] [address] [id number] [address] [place] [address], [place] [address] 15 Dec, 2009 [facility] [address] [id number] [address] [place] [address], [place] [address] Nov, [facility] [address] [id number] [address] [place] [address], [place] [address] Aug, [facility] [address] [id number] [address] [place] [address], [place] [address] Aug, [facility] [address] [id number] [address] [place] [address] Aug, [facility] [address] [id number] [address] [place] [address] Jul, [facility] [address] [id number] [address] [place] [address] Jul, [facility] [address] [id number] [address] [place] [address] Jul, [facility] [address] [id number] [address] [place] [address] 30 Jun, 2009 [facility] [address] [id number] [address] [place] [address], [place] [address] 29 Jun, 2009 [facility] [address] [id number] [address] [place] [address] Jun, [facility] [address] [id number] [address] [place] [id number] 22 Jun, 2009 [facility] [address] [id number] [address] [place] [address] Jun, [facility] [address] [facility] [id number] [address] [place] [address] Jun, [facility] [address] [facility] [id number] [address] [place] [address] Apr, [facility] [address] [facility] [id number] [address] [place] [id number] Apr, [facility] [address] [facility] [id number] [address] [place] [id number] Feb, [facility] [address] [facility] [id number] [address] [place] [id number] January, [facility] [address] [facility] [id number] [address] [place] [id number] Dec, IMMUNIZATIONS No Known Immunizations SOCIAL HISTORY [...]
--- OUTSIDE RECORDS SUMMARY | 2020-03-01 17:53 | XMS REPORT ---
Author Author Michele WASHBURN Organization [facility] [place] Address [address] [place] [address] Care Team Providers Care Manager Fleet Name Role Phone NOEMI WASHBURN Unavailable PROBLEMS Type Condition ICD9-CM Code TRV22-GZ Code Onset Dates Condition S tatus SNOMED Code Problem Leukocytosis D72.829 Active 9588016 06 Problem Bipolar I disorder, most recent episode (or curr ent) mixed, moderate F31.62 Active 82950020 Problem Reactive airway disease J45.909 Active 611452071998 Problem Anxiety F41.9 Active 51287754 Problem Insomnia, unspecified type G47.00 Act sharon 077516637 Problem Essential hypertension I10 Active 01847361 Problem Morbid obesity E66.01 Active 60048 6002 Problem Skin cancer C44.90 Active 91870079 7 Problem DM neuro manif type II E11.49 Active 23521972 Problem Mild cognitive impairment G31.84 Acti ve 954978455 Problem Benign prostatic hyperplasia with lower urinary tract symptoms, unspecified morphology N40.1 Active 90881 6007 Problem Chronic pain G89.29 Active 6474063 1 Problem Diabetes E11.9 Active 96625912 Problem Retinal edema H35.81 Active 030005 6 Problem Anemia of chronic illness D63.8 Acti ve 380392284 Problem Falling R29.6 Active 106781071 Problem Pressure ulcer of other site, stage 3 L89.893 Active 994181096 Problem 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 Active 330270395 Problem Eye exam abnormal R93.8 Active 16 6063912 Problem Pure hypercholesterolemia E78.00 Acti ve 554366168 Problem Dysuria R30.0 Active 40053165 Problem Bipolar disorder, in partial remission, most rec ent episode depressed F31.75 Active 58291107 Problem Hypokalemia E87.6 Active 21320459 Problem Other iron deficiency anemia D50.8 A ctive 94644599 Problem Eustachian tube dysfunction, unspecified laterality H69.80 Active 70117302 Problem Primary osteoarthritis of right knee M17.11 Active [id number] Problem Cough R05 Active 26105880 Problem Bipolar disorder F31.9 Active 137 65207 Problem Chronic diastolic (congestive) heart failure I50.3 2 Active 359626975 Problem Psychophysiological insomnia F51.04 A ctive 284694567 Problem Gastroesophageal reflux disease without esophagitis K21.9 Active 953648674 Problem Polyneuropathy associated with underlying disease G63 Active 410652698 Problem Other secondary acute gout, 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 0 Active 094721422 Problem Diabetic polyneuropathy associated with type 2 d iabetes mellitus E11.42 Active 07718032 Problem Chronic lymphocytic leukemia C91.10 A ctive 36988694 Problem Bilateral primary osteoarthritis of knee M17.0 Active 785922989 Problem Type 2 diabetes mellitus with diabetic neuropathy, uns pecified E11.40 Active 29850834 Problem assisted (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 Z79.4 Active 832220463 Problem Lymphocytosis D72.820 Active 201137 09 Problem Mood disorder F39 Active 842608 05 Problem Bipolar I disorder, most recent episode depressed, moderat e F31.32 Active 245478587 ALLERGIES No Information ENCOUNTERS Encounter Location Date Diagnosis [facility] [place] [address] [facility] [id number] [address] [place] [phone] Dec, [facility] [place] [address] [facility] [id number] [address] [place] [id number] 17 Dec, 2019 Chronic pain G89.29 [facility] [place] [address] [facility] [id number] [address] [place] [phone] 13 Dec, 2019 [facility] [place] [address] [id number] [address] [place] [phone] Dec, [facility] [place] [address] [facility] [id number] [address] [place] [phone] Dec, Gastroesophageal reflux dise ase without esophagitis K21.9 and Pure hypercholesterolemia E78.00 [facility] [place] [address] [facility] [id number] [address] [place] [id number] Dec, Mood disorder F39 [facility] [place] [address] [facility] [id number] [address] [place] [phone] 31 Nov, 2019 Other secondary acute gout, 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 [facility] [place] [address] [facility] [id number] [address] [place] [phone] Nov, Gastroesophageal reflux dise ase without esophagitis K21.9 [facility] [place] [address] [facility] [id number] [address] [place] [phone] Nov, Chronic pain G89.29 [facility] [place] [address] [facility] [id number] [address] [place] [address] Nov, Bipolar I disorder, most rec ent episode depressed, moderate F31.32 ; Anxiety F41.9 and Mild cognitive impairment G31.84 [place] [address] [facility] [id number] [address] [place] [id number] Nov, [place] [address] [facility] [id number] [address] [place] [phone] Nov, Syncope, unspecified syncope type R55 [place] [address] [facility] [id number] [address] [place] [address] Nov, Mood disorder F39 [place] [address] [facility] [id number] [address] [place] [address] Oct, Chronic pain G89.29 [facility] [place] [address] [facility] [id number] [address] [place] [phone] Oct, [facility] [place] [address] [facility] [id number] [address] [place] [phone] Oct, Mood disorder F39 [facility] [place] [address] [facility] [id number] [address] [place] [phone] Oct, [place] [address] [facility] [id number] [address] [place] [address] Oct, Bipolar disorder, in partial remission, most recent episode depressed F31.75 and Mild cognitive impairment G31.84 [place] [address] [facility] [id number] [address] [place] [phone] Oct, Mood disorder F39 [facility] [place] [address] [id number] [address] [place] [phone] Sep, [facility] [place] [address] [id number] [address] [place] [phone] Sep, Mood disorder F39 [facility] [place] [address] [id number] [address] [place] [phone] Sep, Bipolar disorder, in partial remission, most recent episode depressed F31.75 and Mild cognitive impairment G31.84 [facility] [place] [address] [id number] [address] [place] [phone] Sep, Mood disorder F39 [facility] [place] [address] [id number] [address] [place] [address] Sep, [facility] [place] [address] [id number] [address] [place] [phone] Sep, Mood disorder F39 [facility] [place] [address] [id number] [address] [place] [phone] Sep, [facility] [place] [address] [id number] [address] [place] [id number] Aug, Mood disorder F39 [facility] [place] [address] [id number] [address] [place] [phone] Aug, [facility] [place] [address] [id number] [address] [place] [phone] Aug, [facility] [place] [address] [id number] [address] [place] [id number] Aug, [facility] [place] [address] [id number] [address] [place] [phone] Aug, [facility] [place] [address] [id number] [address] [place] [phone] Aug, [facility] [place] [address] [id number] [address] [place] [phone] Aug, [facility] [place] [address] [id number] [address] [place] [phone] Aug, [facility] [place] [address] [id number] [address] [place] [phone] Aug, Essential hypertension I10 [facility] [place] [address] [id number] [address] [place] [phone] Aug, Bipolar disorder, in partial remission, most recent episode depressed F31.75 and Mild cognitive impairment G31.84 [facility] [place] [address] [id number] [address] [place] [phone] Aug, Mood disorder F39 [facility] [place] [address] [id number] [address] [place] [phone] Aug, [facility] [place] [address] [id number] [address] [place] [id number] Aug, Bipolar disorder, in partial remission, most recent episode depressed F31.75 and Mild cognitive impairment G31.84 [facility] [place] [address] [id number] [address] [place] [address] Jul, Bipolar disorder, in partial remission, most recent episode depressed F31.75 and Mild cognitive impairment G31.84 [facility] [place] [address] [id number] [address] [place] [id number] Jul, Psychophysiological insomnia F51.04 [facility] [place] [address] [id number] [address] [place] [phone] Jul, [facility] [place] [address] [id number] [address] [place] [address] Jul, [facility] [place] [address] [id number] [address] [place] [phone] Jul, [facility] [place] [address] [id number] [address] [place] [id number] Jul, [facility] [place] [address] [id number] [address] [place] [address] Jul, [place] [address] [facility] [id number] [address] [place] [address] Jul, [place] [address] [facility] [id number] [address] [place] [address] Jul, Bipolar disorder, in partial remission, most recent episode depressed F31.75 and Mild cognitive impairment G31.84 [place] [address] [place] [id number] [address] [place] [address] Jul, Chronic pain G89.29 ; Diabet es E11.9 ; Essential hypertension I10 ; Ill feeling R68.89 ; Local infection of the skin and subcutaneous tissue, unspecified L08.9 and Other injury of unspecified body region, initial encounter T14.8XXA [place] [address] [place] [id number] [address] [place] [address] Jun, Bipolar disorder, in partial remission, most recent episode depressed F31.75 and Mild cognitive impairment G31.84 [place] [address] [facility] [id number] [address] [place] [phone] Jun, [place] [address] [facility] [id number] [address] [place] [phone] Jun, Bipolar disorder, in partial remission, most recent episode depressed F31.75 and Mild cognitive impairment G31.84 [place] [address] [place] [id number] [address] [place] [phone] Jun, Psychophysiological insomnia F51.04 [place] [address] 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 ; Polyneuropathy associated with underlying disease G63 ; Type 2 diabetes mellitus with diabetic neuropathy, unspecified E11.40 ; 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 and Hyperglycemia R73.[address] [id number] [address] [place] [phone] Jun, Bipolar disorder, in partial remission, most recent episode depressed F31.75 and Mild cognitive impairment G31.84 [facility] [place] [address] [id number] [address] [place] [phone] Jun, [facility] [place] [address] [facility] [id number] [address] [place] [address] Jun, Bipolar disorder F31.9 [facility] [place] [address] [facility] [id number] [address] [place] [phone] May, Bipolar disorder, in partial remission, most recent episode depressed F31.75 and Mild cognitive impairment G31.84 [facility] [place] [address] [facility] [id number] [address] [place] [phone] May, [facility] [place] [address] [facility] [id number] [address] [place] [address] Apr, Chronic pain G89.29 and Bipo lar disorder F31.9 [facility] [place] [address] [id number] [address] [place] [address] Mar, Bipolar disorder F31.9 and C hronic pain G89.29 [facility] [place] [address] [facility] [id number] [address] [place] [address] Feb, Bipolar disorder F31.9 [facility] [place] [address] [id number] [address] [place] [address] Feb, Cellulitis of right upper ex tremity L03.113 and Skin abrasion T14.8XXA [facility] [place] [address] [id number] [address] [place] [phone] Feb, Bipolar disorder, in partial remission, most recent episode depressed F31.75 and Mild cognitive impairment G31.84 [facility] [place] [address] [id number] [address] [place] [phone] Feb, Chronic pain G89.29 [facility] [place] [address] [facility] [id number] [address] [place] [phone] Feb, Bipolar disorder, in partial remission, most recent episode depressed F31.75 and Mild cognitive impairment G31.84 [facility] [place] [address] [id number] [address] [place] [phone] January, Bipolar disorder, in partial remission, most recent episode depressed F31.75 and Mild cognitive impairment G31.84 [facility] [place] [address] [id number] [address] [place] [address] January, Chronic pain G89.29 and Bipo lar disorder F31.9 [facility] [place] [address] [id number] [address] [place] [address] January, Bipolar disorder, in partial remission, most recent episode depressed F31.75 and Mild cognitive impairment G31.84 [facility] [place] [address] [id number] [address] [place] [phone] Dec, [facility] [place] [address] [id number] [address] [place] [phone] Dec, Chronic pain G89.29 and Bipo lar disorder F31.9 [facility] [place] [address] [id number] [address] [place] [address] Dec, Edema of both lower extremit ies R60.0 [facility] [place] [address] [id number] [address] [place] [address] Dec, Bipolar disorder F31.9 [facility] [place] [address] [id number] [address] [place] [address] Dec, Bipolar disorder, in partial remission, most recent episode depressed F31.75 and Mild cognitive impairment G31.84 [facility] [place] [address] [id number] [address] [place] [address] Nov, [facility] [place] [address] [id number] [address] [place] [address] Nov, Chronic pain G89.29 [facility] [place] [address] [id number] [address] [place] [address] Nov, Bipolar disorder, in partial remission, most recent episode depressed F31.75 and Mild cognitive impairment G31.84 [place] [address] [place] [id number] [address] [place] [address] Nov, Bipolar disorder F31.9 [place] [address] [place] [id number] [address] [place] [phone] 04 Nov, 2018 [facility] ; Polyneuropathy associated with [...] unspecified morphology N40.1 and Essential hypertension I10 [place] [id number] [place] [address] Oct, Chronic pain G89.29 [place] [address] [place] [id number] [address] [place] [id number] 18 Oct, 2018 Diabetes E11.9 [place] [address] [place] [id number] [address] [place] [address] Oct, Bipolar I disorder, most rec ent episode (or current) mixed, moderate F31.62 and Mild cognitive impairment G31.84 [place] [address] [place] [id number] [address] [place] [address] Oct, Bipolar I disorder, most rec ent episode (or current) mixed, moderate F31.62 and Mild cognitive impairment G31.84 [place] [address] [place] [id number] [address] [place] [address] Sep, Bipolar I disorder, most rec ent episode (or current) mixed, moderate F31.62 and Mild cognitive impairment G31.84 [place] [address] [place] [id number] [address] [place] [phone] Sep, [facility] [place] [address] [place] [id number] [address] [place] [address] Sep, Diabetes E11.9 ; Hypoxia R09 .02 ; Hyperglycemia R73.9 ; Therapeutic drug monitoring Z51.81 ; BMI 50.0-59.9, adult Z68.43 and Skin cancer C44.90 [place] [address] [place] [id number] [place] [address] Sep, Chronic pain G89.29 [place] [address] [place] [id number] [place] [address] Sep, Bipolar I disorder, most rec ent episode (or current) mixed, moderate F31.62 [place] [address] [place] [id number] [place] [address] Sep, [place] [address] [place] [id number] [place] [address] Sep, [place] [address] [place] [id number] [address] [place] [address] Aug, Chronic pain G89.29 [place] [address] [place] [id number] [address] [place] [address] Aug, Bipolar I disorder, most rec ent episode (or current) mixed, moderate F31.62 [place] [address] [place] [id number] [address] [place] [address] Aug, Bipolar I disorder, most rec ent episode (or current) mixed, moderate F31.62 and Mild cognitive impairment G31.84 [place] [address] [place] [id number] [address] [place] [phone] Jul, [place] [address] [place] [id number] [address] [place] [address] Jul, Chronic pain G89.29 [facility] [place] [address] [place] [id number] [address] [place] [address] Jul, Bipolar I disorder, most rec ent episode (or current) mixed, moderate F31.62 and Mild cognitive impairment G31.84 [place] [address] [facility] [id number] [address] [place] [address] Jul, Bipolar I disorder, most rec ent episode (or current) mixed, moderate F31.62 and MCI (mild cognitive impairment) G31.84 [place] [id number] [facility] [id number] [address] [place] [address] Jul, [facility] [place] [address] [facility] [place] [id number] [address] [place] [address] Jul, [place] [address] [place] [id number] [place] [address] Jul, Bipolar I disorder, most rec ent episode (or current) mixed, moderate F31.62 [place] [id number] [place] [id number] [address] [place] [address] Jul, Chronic pain G89.29 [place] [address] [facility] [place] [id number] [address] [place] [address] Jun, Bipolar I disorder, most rec ent episode (or current) mixed, moderate F31.62 [place] [address] [place] [id number] [address] [place] [address] Jun, Pre-procedure lab exam Z01.8 12 [place] [address] [place] [id number] [address] [place] [address] Jun, [facility] [address] [id number] [place] [id number] Jun, [place] [id number] [facility] [place] [id number] [address] [place] [address] Jun, [place] [address] [place] [id number] [address] [place] [address] Jun, Forgetfulness R68.89 ; Pre-s yncope R55 ; Localized edema R60.0 ; Other iron deficiency anemia D50.8 and BMI 50.0-59.9, adult Z68.43 [facility] [place] [address] [facility] [id number] [address] [place] [phone] Jun, Chronic pain G89.29 [facility] [place] [address] [facility] [id number] [address] [place] [id number] Jun, Chronic pain G89.29 [facility], [place] [address] [facility] [id number] [address] [place] [id number] Jun, Bipolar I disorder, most rec ent episode (or current) mixed, moderate F31.62 [facility], [place] [address] [facility] [id number] [address] [place] [id number] May, Chronic pain G89.29 [facility], [place] [address] [facility] [id number] [address] [place] [id number] Apr, [place] [address] [facility] [id number] [address] [place] [phone] Apr, Chronic pain G89.29 [facility], [place] [address] [facility] [id number] [address] [place] [id number] Apr, Primary osteoarthritis of ri ght knee M17.11 [facility], [place] [address] [facility] [id number] [address] [place] [id number] Mar, [facility], [place] [address] [facility] [id number] [address] [place] [id number] Mar, BMI 50.0-59.9, adult Z68.43 and Bipolar disorder, in partial remission, most recent episode depressed F31.75 [facility], [place] [address] [facility] [id number] [address] [place] [phone] Mar, Diabetes E11.9 ; Pure hyperc holesterolemia E78.00 ; Essential hypertension I10 ; Nausea with vomiting, unspecified R11.2 and Headache, unspecified headache type R51 [facility], [place] [address] [facility] [id number] [address] [place] [id number] Mar, Bipolar I disorder, most rec ent episode (or current) mixed, moderate F31.62 [facility], [place] [address] [id number] [address] [place] [phone] 16 Mar, 2018 Bipolar I disorder, most rec ent episode (or current) mixed, moderate F31.62 [facility] [place] [address] [facility] [id number] [address] [place] [phone] Mar, Chronic pain G89.29 [facility], [place] [address] [facility] [id number] [address] [place] [id number] Mar, Bipolar I disorder, most rec ent episode (or current) mixed, moderate F31.62 [facility] [place] [address] [facility] [id number] [address] [place] [phone] Feb, Bipolar I disorder, most rec ent episode (or current) mixed, moderate F31.62 [facility] [place] [address] [facility] [id number] [address] [place] [phone] Feb, Chronic pain G89.29 [facility] [place] [address] [facility] [id number] [address] [place] [phone] Feb, Decubitus ulcer of right josselin t, stage 3 L89.893 and BMI 50.0-59.9, adult Z68.43 [facility] [place] [address] [facility] [id number] [address] [place] [phone] Feb, Bipolar I disorder, most rec ent episode (or current) mixed, moderate F31.62 [facility] [place] [address] [facility] [id number] [address] [place] [phone] Feb, [facility] [place] [address] [facility] [id number] [address] [place] [phone] January, [facility] [place] [address] [facility] [id number] [address] [place] [phone] January, Chronic pain G89.29 [facility] [place] [address] [facility] [id number] [address] [place] [phone] January, Bipolar I disorder, most rec ent episode (or current) mixed, moderate F31.62 [place] [address] [place] [id number] [address] [place] [id number] January, Bipolar I disorder, most rec ent episode (or current) mixed, moderate F31.62 [place] [address] [place] [id number] [address] [place] [phone] Dec, Bipolar I disorder, most rec ent episode (or current) mixed, moderate F31.62 and BMI 50.0-59.9, adult Z68.43 [place] [address] [address] Dec, Bipolar I disorder, most rec ent episode (or current) mixed, moderate F31.62 [place] [address] [address] Dec, Chronic pain G89.29 [place] [address] [address] Dec, DM neuro manif type II E11.4 9 ; Right flank pain R10.9 ; assisted 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 Z79.891 ; Encounter for medication monitoring Z51.81 and BMI 50.0-59.9, adult Z68.43 [place] [address] [address] Dec, Bipolar I disorder, most rec ent episode (or current) mixed, moderate F31.62 [place] [address] [place] [id number] [address] [place] [address] Nov, Bipolar I disorder, most rec ent episode (or current) mixed, moderate F31.62 [place] [address] [place] [id number] [address] [place] [address] Nov, Chronic pain G89.29 [place] [address] [place] [id number] [place] [address] Nov, Bipolar I disorder, most rec ent episode (or current) mixed, moderate F31.62 [place] [address] [place] [id number] [place] [address] Nov, Hypokalemia E87.6 [place] [address] [place] [id number] [place] [phone] Nov, Bipolar I disorder, most rec ent episode (or current) mixed, moderate F31.62 [place] [address] [address] Oct, Chronic pain G89.29 [place] [address] [address] Oct, BMI 50.0-59.9, adult Z68.43 and Bipolar I disorder, most recent episode (or current) mixed, moderate F31.62 [place] [address] [address] Oct, Bipolar I disorder, most rec ent episode (or current) mixed, moderate F31.62 [place] [address] [address] Oct, [place] [address] [address] Oct, Hypokalemia E87.6 [place] [address] [place] [id number] [place] [address] Oct, DM neuro manif type II E11.4 9 [place] [address] [address] Oct, Bipolar I disorder, most rec ent episode (or current) mixed, moderate F31.62 [place] [address] [address] Oct, Bipolar I disorder, most rec ent episode (or current) mixed, moderate F31.62 [place] [address] [place] [id number] [place] [id number] 14 Oct, 2017 Hyperkalemia E87.5 ; Falling R29.6 ; BMI 50.0-59.9, adult Z68.43 and Acute left ankle pain M25.572 [place] [id number] [place] [phone] 08 Oct, 2017 DM neuro manif type II E11.4 9 [place] [address] [place] [id number] [address] [place] [phone] Oct, [place] [address] [place] [id number] [place] [address] Sep, Chronic pain G89.29 [place] [address] [place] [id number] [address] [place] [phone] Sep, [place] [address] [place] [id number] [place] [address] Sep, Bilateral primary osteoarthr itis of knee M17.0 [place] [address] [address] Sep, Generalized edema R60.1 [place] [address] [address] 16 Sep, 2017 Bipolar I disorder, most rec ent episode (or current) mixed, moderate F31.62 [place] [address] [address] 15 Sep, 2017 Hypoxia R09.02 ; Other hyper volemia E87.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 [id number] [address] [place] [phone] Aug, Generalized edema R60.1 [facility] [place] [address] [facility] [id number] [address] [place] [phone] Aug, [facility] [place] [address] [facility] [id number] [address] [place] [phone] Aug, [facility] [place] [address] [facility] [id number] [address] [place] [id number] 14 Aug, 2017 Bipolar I disorder, most rec ent episode (or current) mixed, moderate F31.62 [place] [id number] [place] [id number] [address] [place] [phone] 07 Aug, 2017 Bipolar I disorder, most rec ent episode (or current) mixed, moderate F31.62 [place] [address] [place] [id number] [address] [place] [id number] Aug, Chronic pain G89.29 [facility] [place] [address] [facility] [id number] [address] [place] [phone] 30 Jul, 2017 Bipolar I disorder, most rec ent episode (or current) mixed, moderate F31.62 [facility] [place] [address] [facility] [id number] [address] [place] [address] Jul, Bipolar I disorder, most rec ent episode (or current) mixed, moderate F31.62 and BMI 60.0-69.9, adult Z68.44 [facility] [place] [address] [facility] [id number] [address] [place] [id number] 16 Jul, 2017 Bipolar I disorder, most rec ent episode (or current) mixed, moderate F31.62 [facility] [place] [address] [facility] [id number] [address] [place] [phone] 06 Jul, 2017 Chronic pain G89.29 [facility], [place] [address] [place] [id number] [address] [place] [phone] Jul, Bipolar I disorder, most rec ent episode (or current) mixed, moderate F31.62 [facility] [place] [address] [facility] [id number] [address] [place] [phone] Jun, Polyneuropathy associated wi th underlying disease G63 and Diabetes E11.9 [facility] [place] [address] [facility] [id number] [address] [place] [id number] 16 Jun, 2017 Bipolar I disorder, most rec ent episode (or current) mixed, moderate F31.62 [facility] [place] [address] [facility] [id number] [address] [place] [phone] Jun, Chronic pain G89.29 [facility], [place] [address] [facility] [id number] [address] [place] [phone] May, Bipolar I disorder, most rec ent episode (or current) mixed, moderate F31.62 [facility] [place] [address] [place] [id number] [address] [place] [phone] May, Bipolar I disorder, most rec ent episode (or current) mixed, moderate F31.62 [facility] [place] [address] [facility] [id number] [address] [place] [phone] 20 May, 2017 Diabetic polyneuropathy asso ciated with type 2 diabetes mellitus E11.42 [facility] [place] [address] [facility] [id number] [address] [place] [phone] 18 May, 2017 Bipolar I disorder, most rec ent episode (or current) mixed, moderate F31.62 [facility] [place] [address] [facility] [id number] [address] [place] [phone] 13 May, 2017 Bipolar I disorder, most rec ent episode (or current) mixed, moderate F31.62 [facility] [place] [address] [facility] [id number] [address] [place] [address] May, Chronic pain G89.29 [facility] [place] [address] [facility] [id number] [address] [place] [phone] Apr, Bipolar I disorder, most rec ent episode (or current) mixed, moderate F31.62 [facility] [place] [address] [id number] [address] [place] [phone] Apr, [facility] [place] [address] [id number] [address] [place] [phone] Apr, Chronic pain G89.29 and DM n euro manif type II E11.49 [facility] [place] [address] [id number] [address] [place] [phone] Apr, [facility] [place] [address] [id number] [address] [place] [phone] Apr, Bipolar I disorder, most rec ent episode (or current) mixed, moderate F31.62 [facility] [place] [address] [facility] [id number] [address] [place] [phone] Apr, Chronic pain G89.29 [facility] [place] [address] [facility] [id number] [address] [place] [address] Apr, Iliotibial band syndrome, le ft M76.32 [facility] [place] [address] [facility] [id number] [address] [place] [id number] Apr, Bipolar I disorder, most rec ent episode (or current) mixed, moderate F31.62 [facility] [place] [address] [facility] [id number] [address] [place] [phone] Mar, Bipolar I disorder, most rec ent episode (or current) mixed, moderate F31.62 [facility] [place] [address] [facility] [id number] [address] [place] [phone] Mar, Bipolar I disorder, most rec ent episode (or current) mixed, moderate F31.62 [facility] [place] [address] [facility] [id number] [address] [place] [phone] Mar, [facility] [place] [address] [facility] [id number] [address] [place] [phone] Mar, Bipolar I disorder, most rec ent episode (or current) mixed, moderate F31.62 [facility] [place] [address] [facility] [id number] [address] [place] [phone] Mar, Chronic pain G89.29 [facility] [place] [address] [facility] [id number] [address] [place] [phone] Mar, Bipolar I disorder, most rec ent episode (or current) mixed, moderate F31.62 [facility] [place] [address] [facility] [id number] [address] [place] [phone] Mar, Bipolar I disorder, most rec ent episode (or current) mixed, moderate F31.62 [facility] [place] [address] [facility] [id number] [address] [place] [phone] Mar, Acute pain of left knee M25. 562 ; Left hip pain M25.552 ; Generalized edema R60.1 and Tongue swelling R22.0 [facility] [place] [address] [facility] [id number] [address] [place] [phone] Mar, [facility] [place] [address] [facility] [id number] [address] [place] [phone] Feb, Chronic pain G89.29 [facility] [place] [address] [facility] [id number] [address] [place] [phone] Feb, Diabetes E11.9 [facility] [place] [address] [facility] [id number] [address] [place] [id number] January, Chronic pain G89.29 [facility] [place] [address] [facility] [id number] [address] [place] [id number] January, [facility] [place] [address] [facility] [id number] [address] [place] [address] January, Bipolar I disorder, most rec ent episode (or current) mixed, moderate F31.62 [facility] [place] [address] [facility] [id number] [address] [place] [address] Dec, Bipolar I disorder, most rec ent episode (or current) mixed, moderate F31.62 [facility] [place] [address] [facility] [id number] [address] [place] [phone] 24 Apr, 2017 Chronic pain G89.29 [facility] [place] [address] [id number] [address] [place] [phone] Dec, Bipolar I disorder, most rec ent episode (or current) mixed, moderate F31.62 [facility] [place] [address] [facility] [place] [id number] [address] [place] [address] Dec, Diabetes E11.9 ; Essential h ypertension I10 ; Chronic pain G89.29 and Morbid obesity E66.01 [facility] [place] [address] [facility] [id number] [address] [place] [phone] Dec, [facility] [place] [address] [facility] [id number] [address] [place] [phone] Dec, Bipolar I disorder, most rec ent episode (or current) mixed, moderate F31.62 [facility] [place] [address] [facility] [id number] [address] [place] [phone] Dec, Bipolar I disorder, most rec ent episode (or current) mixed, moderate F31.62 [facility] [place] [address] [facility] [id number] [address] [place] [phone] Nov, Chronic pain G89.29 [facility] [place] [address] [facility] [id number] [address] [place] [phone] Nov, Bipolar I disorder, most rec ent episode (or current) mixed, moderate F31.62 [facility] [place] [address] [facility] [id number] [address] [place] [phone] Nov, [facility] [place] [address] [facility] [id number] [address] [place] [phone] Nov, Bipolar I disorder, most rec ent episode (or current) mixed, moderate F31.62 [facility] [place] [address] [facility] [id number] [address] [place] [phone] Nov, Bipolar I disorder, most rec ent episode (or current) mixed, moderate F31.62 [facility] [place] [address] [facility] [id number] [address] [place] [phone] Nov, [facility] [place] [address] [id number] [address] [place] [phone] Nov, [facility] [place] [address] [id number] [address] [place] [phone] Nov, [facility] [place] [address] [facility] [id number] [address] [place] [phone] Oct, Chronic pain G89.29 [facility] [place] [address] [facility] [id number] [address] [place] [phone] Oct, Bipolar I disorder, most rec ent episode (or current) mixed, moderate F31.62 [facility] [place] [address] [id number] [address] [place] [phone] Oct, [facility] [place] [address] 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 [id number] [address] [place] [phone] Oct, [facility] [place] [address] [facility] [id number] [address] [place] [phone] Oct, Diabetes E11.9 [facility] [place] [address] [facility] [id number] [address] [place] [phone] Oct, Bipolar I disorder, most rec ent episode (or current) mixed, moderate F31.62 [facility] [place] [address] [facility] [id number] [address] [place] [phone] Sep, Chronic pain G89.29 [facility] [place] [address] [facility] [id number] [address] [place] [phone] Sep, Chronic pain G89.29 [facility] [place] [address] [facility] [id number] [address] [place] [phone] Aug, Chronic pain G89.29 [facility] [place] [address] [facility] [id number] [address] [place] [phone] Jul, [facility] [place] [address] [place] [id number] [address] [place] [phone] Jul, Diabetes E11.9 [facility] [place] [address] [place] [id number] [address] [place] [phone] Jul, Chronic pain G89.29 [place] [address] [place] [address] [id number] [address] [place] [id number] Jul, Bipolar I disorder, most rec ent episode (or current) mixed, moderate F31.62 [place] [address] [id number] [place] [phone] Jun, Bipolar I disorder, most rec ent episode (or current) mixed, moderate F31.62 [place] [address] [place] [id number] [place] [id number] Jun, [place] [address] [id number] [place] [id number] Jun, Bipolar I disorder, most rec ent episode (or current) mixed, moderate F31.62 [place] [address] [place] [id number] [place] [id number] May, Insomnia, unspecified type G 47.00 [place] [address] [id number] [place] [id number] May, Bipolar I disorder, most rec ent episode (or current) mixed, moderate F31.62 [place] [address] [place] [place] [id number] [place] [id number] 14 May, 2016 [place] [address] [id number] [place] [id number] 08 May, 2016 Bipolar I disorder, most rec ent episode (or current) mixed, moderate F31.62 [place] [address] [place] [place] [id number] [place] [id number] May, Diabetes E11.9 and Essential hypertension I10 [facility], [place] [address] [id number] [address] [place] [id number] Apr, Chronic pain G89.29 [facility], [place] [address] [facility] [id number] [address] [place] [id number] Apr, Bipolar I disorder, most rec ent episode (or current) mixed, moderate F31.62 [place] [id number] [facility] [id number] [address] [place] [id number] Apr, [facility], [place] [address] [facility] [id number] [address] [place] [id number] Apr, [place] [address] [facility] [id number] [address] [place] [phone] Mar, Chronic pain G89.29 ; Headac he, unspecified headache type R51 ; Neuropathy G62.9 ; Pain of right hip joint M25.551 and Essential hypertension I10 [place] [address] [facility] [id number] [address] [place] [id number] Mar, Chronic pain G89.29 [place] [id number] [facility] [id number] [address] [place] [id number] Mar, Bipolar I disorder, most rec ent episode (or current) mixed, moderate F31.62 [place] [id number] [facility] [id number] [address] [place] [id number] Feb, Bipolar I disorder, most rec ent episode (or current) mixed, moderate F31.62 and Insomnia, unspecified type G47.00 [place] [address] [id number] [address] [place] [id number] Feb, Chronic pain G89.29 [place] [address] [facility] [id number] [address] [place] [phone] Feb, Bipolar I disorder, most rec ent episode (or current) mixed, moderate F31.62 [place] [address] [facility] [id number] [address] [place] [id number] January, Bipolar I disorder, most rec ent episode (or current) mixed, moderate F31.62 [facility], [place] [address] [id number] [address] [place] [id number] January, Chronic pain G89.29 [facility], [place] [address] [facility] [id number] [place] [address] January, Chronic pain G89.29 and Esse ntial hypertension I10 [facility] [place] [address] [id number] [address] [place] [address] January, Bipolar I disorder, most rec ent episode (or current) mixed, moderate F31.62 [facility] [place] [address] [id number] [address] [place] [address] Dec, [facility] [place] [address] [facility] [id number] [address] [place] [address] Dec, [facility] [place] [address] [facility] [id number] [address] [place] [address] Dec, [facility] [place] [address] [facility] [id number] [address] [place] [address] Dec, [facility] [place] [address] [facility] [id number] [address] [place] [address] Nov, Reactive airway disease J45. 909 [facility] [place] [address] [facility] [id number] [address] [place] [address] Nov, [facility] [place] [address] [id number] [address] [place] [address] Nov, [facility] [place] [address] [facility] [id number] [address] [place] [address] Nov, [facility] [place] [address] [facility] [id number] [address] [place] [address] Nov, [facility] [place] [address] [facility] [id number] [address] [place] [address] Nov, Onychomycosis B35.1 ; Hammer toe M20.40 ; Felton or callus L84 and DM neuro manif type II E11.49 [facility] [place] [address] [place] [id number] [address] [place] [address] Nov, Chronic pain G89.29 ; Leukoc ytosis D72.829 and Diabetes E11.9 [facility] [place] [address] [facility] [id number] [address] [place] [address] Nov, [facility] [place] [address] [place] [id number] [address] [place] [address] Oct, Bronchitis J40 [facility] [place] [address] [place] [id number] [address] [place] [address] Oct, [place] [address] [address] Oct, [place] [address] [address] Oct, Mastoiditis, unspecified lat erality H70.90 and Type 2 diabetes mellitus with complication E11.8 [place] [address] [place] [id number] [address] [place] [address] Sep, [place] [address] [address] Sep, Dysuria R30.0 ; Cough R05 ; Benign prostatic hyperplasia with lower urinary tract symptoms, unspecified morphology N40.1 ; Hypokalemia E87.6 and Eustachian tube dysfunction, unspecified laterality H69.80 [place] [id number] [place] [address] Sep, Moderate mixed bipolar I dis order F31.62 [place] [address] [address] Sep, Hypokalemia E87.6 [place] [address] [place] [id number] [address] [place] [address] Sep, [place] [address] [address] Sep, Upper respiratory tract infe ction, unspecified type J06.9 [facility] [place] [address] [id number] [address] [place] [address] Aug, [facility] [place] [address] [id number] [address] [place] [address] Aug, Dysuria R30.0 [facility] [place] [address] [id number] [address] [place] [address] Aug, [facility] [place] [address] [id number] [address] [place] [address] Jul, [facility] [place] [address] [id number] [address] [place] [address] Jul, [facility] [place] [address] [id number] [address] [place] [address] Jul, [facility] [place] [address] [id number] [address] [place] [address] Jul, [facility] [place] [address] [id number] [address] [place] [address] Jun, [facility] [place] [address] [id number] [address] [place] [address] Jun, [facility] [place] [address] [id number] [address] [place] [address] Jun, [facility] [place] [address] [id number] [address] [place] [address] May, [facility] [place] [address] [id number] [address] [place] [address] May, Bipolar I disorder, most rec ent episode (or current) mixed, moderate 296.62 [facility] [place] [address] [id number] [address] [place] [id number] 16 May, 2015 [facility] [place] [address] [id number] [address] [place] [address] May, Bipolar I disorder, most rec ent episode (or current) mixed, moderate 296.62 and Major depressive disorder, recurrent episode, severe, specified as with psychotic behavior 296.34 [facility] [place] [address] [facility] [id number] [address] [place] [address] May, Bipolar I disorder, most rec ent episode (or current) mixed, moderate 296.62 [facility] [place] [address] [facility] [id number] [address] [place] [address] May, [facility] [place] [address] [facility] [id number] [address] [place] [address] Apr, [facility] [place] [address] [facility] [id number] [address] [place] [address] Apr, [facility] [place] [address] [place] [id number] [address] [place] [address] Apr, Unspecified disorder of kidn ey and ureter 593.9 and Diabetes mellitus type 2, uncontrolled 250.02 [facility] [place] [address] [place] [id number] [address] [place] [address] Apr, [facility] [place] [address] [facility] [id number] [address] [place] [address] Apr, [facility] [place] [address] [place] [id number] [address] [place] [address] Apr, [facility] [place] [address] [facility] [id number] [address] [place] [address] Apr, [facility] [place] [address] [place] [id number] [address] [place] [address] Apr, Diabetes mellitus type II, u ncontrolled 250.02 [facility] [place] [address] [facility] [id number] [address] [place] [address] Apr, [facility] [place] [address] [facility] [id number] [address] [place] [address] Mar, [facility] [place] [address] [place] [id number] [address] [place] [address] Mar, [facility] [place] [address] [facility] [id number] [address] [place] [address] Mar, [facility] [place] [address] [place] [id number] [address] [place] [address] Mar, Major depressive disorder, r ecurrent episode, severe, specified as with psychotic behavior 296.34 and Bipolar I disorder, most recent episode (or current) mixed, moderate 296.62 [facility] [place] [id number] [place] [address] Mar, Diabetes 250.00 ; Anuria 788 .5 ; Nausea and vomiting 787.01 and Diarrhea 787.91 [facility] [place] [address] [place] [id number] [address] [place] [address] Mar, Diabetes 250.00 [facility] [place] [address] [place] [id number] [address] [place] [address] Mar, [facility] [place] [address] [place] [id number] [address] [place] [address] Mar, Diabetes 250.00 [facility] [place] [address] [place] [id number] [address] [place] [address] Mar, [facility] [place] [address] [place] [id number] [address] [place] [address] Mar, [facility] [place] [address] [place] [id number] [address] [place] [address] Mar, [facility] [place] [address] [place] [id number] [address] [place] [address] Mar, [facility] [place] [address] [place] [id number] [address] [place] [address] Mar, Bipolar I disorder, most rec ent episode (or current) mixed, moderate 296.62 and Major depressive disorder, recurrent episode, severe, specified as with psychotic behavior 296.34 [facility] [place] [address] [place] [id number] [address] [place] [address] Mar, Magnesium deficiency 275.2 ; Hypokalemia 276.8 ; Nausea & vomiting 787.01 and Diabetes mellitus type 2, uncontrolled 250.02 [place] [address] [address] Feb, [facility] [place] [address] [address] Feb, Bipolar I disorder, most rec ent episode (or current) mixed, moderate 296.62 [place] [address] [address] Feb, Nausea and vomiting 787.01 ; Left elbow pain 719.42 ; Anuria 788.5 and Diabetes 250.00 [place] [address] [address] Feb, [place] [address] [address] Feb, Hypopotassemia 276.8 and Hyp okalemia 276.[address] [address] Feb, Hypopotassemia 276.8 and Hyp okalemia 276.8 [place] [address] [address] Feb, Seborrheic keratoses 702.19 [place] [address] [address] Feb, Hypopotassemia 276.8 and Low magnesium levels 275.2 [place] [address] [address] January, [place] [address] [address] January, [place] [address] [address] January, [place] [address] [address] January, Scalp lesion 709.9 [facility] [place] [address] [id number] [address] [place] [address] January, [facility] [place] [address] [id number] [address] [place] [address] Dec, Tear of medial cartilage or meniscus of knee, current 836.0 and 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 [facility] [place] [address] [id number] [address] [place] [address] Dec, [facility] [place] [address] [id number] [address] [place] [address] Dec, [facility] [place] [address] [id number] [address] [place] [address] Dec, Squamous cell carcinoma, 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 [facility] [place] [address] [id number] [address] [place] [address] Dec, [facility] [place] [address] [id number] [address] [place] [address] Dec, [facility] [place] [address] [id number] [address] [place] [address] Nov, [facility] [place] [address] [id number] [address] [place] [address] Nov, [facility] [place] [address] [id number] [address] [place] [address] Nov, [facility] [place] [address] [id number] [address] [place] [address] Nov, [facility] [place] [address] [id number] [address] [place] [address] Nov, [facility] [place] [address] [id number] [address] [place] [address] Nov, [facility] [place] [address] [id number] [address] [place] [address] Nov, [facility] [address] [id number] [address] [place] [address], [place] [address] Nov, 2014 [facility] [address] [id number] [address] [place] [address], [place] [address] Nov, 2014 [facility] [address] [id number] [address] [place] [address], [place] [address] Nov, 2014 [facility] [address] [id number] [address] [place] [address], [place] [address] Nov, 2014 [facility] [address] [id number] [address] [place] [address], [place] [address] Nov, 2014 [facility] [address] [id number] [address] [place] [address], [place] [address] Oct, 2014 [facility] [address] [id number] [address] [place] [address], [place] [address] Oct, 2014 [facility] [address] [id number] [address] [place] [address], [place] [address] Oct, 2014 [facility] [address] [id number] [address] [place] [address], [place] [address] Oct, 2014 [facility] [address] [id number] [address] [place] [address], [place] [address] Oct, 2014 [facility] [address] [id number] [address] [place] [address] Oct, 2014 [facility] [address] [id number] [address] [place] [address] Oct, 2014 [facility] [address] [id number] [address] [place] [address], [place] [address] Oct, 2014 [facility] [address] [id number] [address] [place] [address] Oct, 2014 [facility] [address] [id number] [address] [place] [address] Sep, [facility] [address] [id number] [address] [place] [address] Sep, [facility] [address] [id number] [address] [place] [address], [place] [address] Sep, [facility] [address] [id number] [address] [place] [address], [place] [address] Sep, [facility] [address] [id number] [address] [place] [address], [place] [address] Sep, [facility] [address] [id number] [address] [place] [address], [place] [address] Sep, [facility] [address] [id number] [address] [place] [address], [place] [address] Sep, [facility] [address] [id number] [address] [place] [address], [place] [address] Sep, [facility] [address] [id number] [address] [place] [address], [place] [address] Sep, [facility] [address] [id number] [address] [place] [address], [place] [address] Sep, [facility] [address] [id number] [address] [place] [address], [place] [address] Sep, [facility] [address] [id number] [address] [place] [address], [place] [address] Sep, [facility] [address] [id number] [address] [place] [address], [place] [address] Sep, [facility] [address] [id number] [address] [place] [address], [place] [address] Sep, [facility] [address] [id number] [address] [place] [address], [place] [address] Sep, [facility] [address] [id number] [address] [place] [address], [place] [address] Sep, [facility] [address] [id number] [address] [place] [address], [place] [address] Aug, [facility] [address] [id number] [facility] [place] [address] Aug, [facility] [address] [id number] [facility] [place] [address] Aug, [facility] [address] [id number] [facility] [place] [address] Aug, [facility] [address] [id number] [facility] [place] [address] Aug, [facility] [address] [id number] [facility] [place] [address] Aug, [facility] [address] [id number] [facility] [place] [address] Aug, [facility] [address] [id number] [facility] [place] [address] Aug, [facility] [address] [id number] [address] [place] [address], [place] [address] Aug, [facility] [address] [id number] [address] [place] [address], [place] [address] Aug, [facility] [address] [id number] [address] [place] [address], [place] [address] Aug, [facility] [place] [id number] Aug, [facility] [address] [id number] [address] [place] [address], [place] [address] Aug, [facility] [address] [id number] [address] [place] [address], [place] [address] Aug, [facility] [address] [id number] [facility] [place] [address] Aug, [facility] [address] [id number] [facility] [place] [address] Aug, [facility] [address] [id number] [facility] [place] [address] Aug, [facility] [address] [id number] [address] [place] [address], [place] [address] Aug, [facility] [address] [id number] [address] [place] [address], [place] [address] Aug, [facility] [address] [id number] [address] [place] [address], [place] [address] Aug, [facility] [address] [id number] [address] [place] [address], [place] [address] Aug, [facility] [address] [id number] [address] [place] [address], [place] [address] Aug, [facility] [address] [id number] [address] [place] [address], [place] [address] Aug, [facility] [address] [id number] [address] [place] [address], [place] [address] Aug, [facility] [address] [id number] [address] [place] [address], [place] [address] Aug, [facility] [address] [id number] [address] [place] [address], [place] [address] Aug, [facility] [address] [id number] [address] [place] [address], [place] [address] Aug, [facility] [address] [id number] [address] [place] [address], [place] [address] Aug, [facility] [address] [id number] [address] [place] [address], [place] [address] Aug, [facility] [address] [id number] [address] [place] [address], [place] [address] Aug, [facility] [address] [id number] [address] [place] [address], [place] [address] Jul, [facility] [address] [id number] [address] [place] [address], [place] [address] Jul, [facility] [address] [id number] [address] [place] [address] Jul, [facility] [address] [id number] [address] [place] [address], [place] [address] Jul, [facility] [address] [id number] [address] [place] [address], [place] [address] Jul, [facility] [address] [id number] [address] [place] [address], [place] [address] Jul, [facility] [address] [id number] [address] [place] [address], [place] [address] Jul, [facility] [address] [id number] [address] [place] [address], [place] [address] Jul, [facility] [address] [id number] [address] [place] [address], [place] [address] Jul, [facility] [address] [id number] [address] [place] [address], [place] [address] Jul, [facility] [address] [id number] [address] [place] [address], [place] [address] Jun, [facility] [address] [id number] [address] [place] [address], [place] [address] Jun, [facility] [address] [id number] [address] [place] [address], [place] [address] Jun, [facility] [address] [id number] [address] [place] [address] Jun, [facility] [address] [id number] [address] [place] [address] Jun, [facility] [address] [id number] [address] [place] [address] Jun, [facility] [address] [id number] [address] [place] [address], [place] [address] Jun, [facility] [address] [id number] [address] [place] [address] Jun, [facility] [address] [id number] [facility] [place] [address] Jun, [facility] [address] [id number] [address] [place] [address], [place] [address] Jun, [facility] [address] [id number] [address] [place] [address], [place] [address] 29 May, 2013 [facility] [address] [id number] [address] [place] [address], [place] [address] 29 Sep, 2013 [facility] [address] [id number] [address] [place] [address], [place] [address] 26 May, 2013 [facility] [address] [id number] [address] [place] [address], [place] [address] 26 May, 2013 [facility] [address] [id number] [address] [place] [address], [place] [address] 17 May, 2013 [facility] [address] [id number] [address] [place] [address], [place] [address] 17 May, 2013 [facility] [address] [id number] [address] [place] [address], [place] [address] 15 May, 2013 [facility] [address] [id number] [address] [place] [address], [place] [address] 15 May, 2013 [facility] [address] [id number] [address] [place] [address], [place] [address] 15 May, 2013 [facility] [address] [id number] [address] [place] [address], [place] [address] 15 May, 2013 [facility] [address] [id number] [address] [place] [address], [place] [address] 10 Sep, 2013 [facility] [address] [id number] [address] [place] [address], [place] [address] 10 Sep, 2013 [facility] [address] [id number] [address] [place] [address], [place] [address] 09 Sep, 2013 [facility] [address] [id number] [address] [place] [address], [place] [address] May, [facility] [address] [id number] [facility] [place] [address] May, [facility] [address] [id number] [facility] [place] [address] May, [facility] [address] [id number] [facility] [place] [address] Apr, [facility] [address] [id number] [address] [place] [address], [place] [address] Apr, [facility] [address] [id number] [address] [place] [address], [place] [address] Apr, [facility] [address] [id number] [address] [place] [address], [place] [address] Apr, [facility] [address] [id number] [address] [place] [address], [place] [address] Apr, [facility] [address] [id number] [address] [place] [address], [place] [address] Apr, [facility] [address] [id number] [address] [place] [address], [place] [address] Apr, [facility] [address] [id number] [address] [place] [address], [place] [address] Apr, [facility] [facility] [address] [id number] [address] [place] [address], [place] [address] Apr, [facility] [address] [id number] [address] [place] [address], [place] [address] Apr, [facility] [address] [id number] [address] [place] [address], [place] [address] Apr, [facility] [address] [id number] [address] [place] [address], [place] [address] Apr, [facility] [address] [id number] [address] [place] [address], [place] [address] Apr, [facility] [address] [id number] [facility] [place] [address] Apr, [facility] [address] [id number] [address] [place] [address], [place] [address] Apr, [facility] [address] [id number] [address] [place] [address], [place] [address] Mar, [facility] [address] [id number] [address] [place] [address], [place] [address] Mar, [facility] [address] [id number] [address] [place] [address], [place] [address] Mar, [facility] [address] [id number] [address] [place] [address], [place] [address] Mar, [facility] [address] [id number] [address] [place] [address], [place] [address] Mar, [facility] [address] [id number] [address] [place] [address], [place] [address] Mar, [facility] [address] [id number] [address] [place] [address], [place] [address] Mar, [facility] [address] [id number] [address] [place] [address], [place] [address] Mar, [facility] [address] [id number] [address] [place] [address], [place] [address] Mar, [facility] [address] [id number] [address] [place] [address], [place] [address] Mar, [facility] [address] [id number] [address] [place] [address], [place] [address] Mar, [facility] [address] [id number] [address] [place] [address], [place] [address] Mar, [facility] [address] [id number] [address] [place] [address], [place] [address] Mar, [facility] [address] [id number] [address] [place] [address], [place] [address] Mar, [facility] [address] [id number] [facility] [place] [address] Mar, 2013 [facility] [address] [id number] [facility] [place] [address] Mar, 2013 [facility] [address] [id number] [facility] [place] [address] Mar, [facility] [address] [id number] [facility] [place] [address] Mar, [facility] [address] [id number] [facility] [place] [address] Feb, [facility] [address] [id number] [address] [place] [address], [place] [address] Feb, [facility] [address] [id number] [address] [place] [address], [place] [address] Feb, [facility] [address] [id number] [address] [place] [address], [place] [address] Feb, [facility] [address] [id number] [address] [place] [address], [place] [address] Feb, [facility] [address] [id number] [address] [place] [address], [place] [address] Feb, [facility] [address] [id number] [address] [place] [address], [place] [address] Feb, [facility] [address] [id number] [address] [place] [address], [place] [address] Feb, [facility] [address] [id number] [address] [place] [address], [place] [address] Feb, [facility] [address] [id number] [address] [place] [address], [place] [address] Feb, [facility] [address] [id number] [address] [place] [address], [place] [address] Feb, [facility] [address] [id number] [address] [place] [address], [place] [address] Feb, [facility] [address] [id number] [address] [place] [address], [place] [address] Feb, [facility] [address] [id number] [address] [place] [address], [place] [address] Feb, [facility] [address] [id number] [address] [place] [address], [place] [address] January, [facility] [address] [id number] [address] [place] [address], [place] [address] January, [facility] [address] [id number] [address] [place] [address], [place] [address] January, [facility] [address] [id number] [address] [place] [address], [place] [address] January, [facility] [address] [id number] [address] [place] [address], [place] [address] January, [facility] [address] [id number] [address] [place] [address], [place] [address] January, [facility] [address] [id number] [address] [place] [address], [place] [address] January, [facility] [address] [id number] [address] [place] [address], [place] [address] January, [facility] [address] [id number] [address] [place] [address], [place] [address] January, [facility] [address] [id number] [address] [place] [address], [place] [address] January, [facility] [address] [id number] [address] [place] [address], [place] [address] January, [facility] [address] [id number] [address] [place] [address], [place] [address] January, [facility] [address] [id number] [address] [place] [address], [place] [address] January, [facility] [address] [id number] [facility] [place] [address] January, [facility] [address] [id number] [facility] [place] [address] Dec, [facility] [address] [id number] [facility] [place] [address] Dec, [facility] [address] [id number] [address] [place] [address], [place] [address] Dec, [facility] [address] [id number] [address] [place] [address], [place] [address] Dec, [facility] [address] [id number] [address] [place] [address], [place] [address] Dec, [facility] [address] [id number] [address] [place] [address], [place] [address] Dec, [facility] [address] [id number] [address] [place] [address], [place] [address] Dec, [facility] [address] [id number] [address] [place] [address], [place] [address] Dec, [facility] [address] [id number] [address] [place] [address], [place] [address] Dec, [facility] [address] [id number] [address] [place] [address], [place] [address] Dec, [facility] [address] [id number] [address] [place] [address], [place] [address] Nov, [facility] [address] [id number] [address] [place] [address], [place] [address] Nov, [facility] [address] [id number] [address] [place] [address], [place] [address] Nov, [facility] [address] [id number] [address] [place] [address], [place] [address] Nov, [facility] [address] [id number] [address] [place] [address], [place] [address] Nov, [facility] [address] [id number] [facility] [place] [address] 08 Nov, 2013 [facility] [address] [id number] [address] [place] [address], [place] [address] Nov, [facility] [address] [id number] [address] [place] [address], [place] [address] Nov, [facility] [address] [id number] [address] [place] [address], [place] [address] Nov, [facility] [address] [id number] [address] [place] [address], [place] [address] Nov, [facility] [address] [id number] [address] [place] [address], [place] [address] Oct, [facility] [address] [id number] [address] [place] [address], [place] [address] Oct, [facility] [address] [id number] [address] [place] [address], [place] [address] Oct, [facility] [address] [id number] [address] [place] [address], [place] [address] Oct, [facility] [address] [id number] [address] [place] [address], [place] [address] Oct, [facility] [address] [id number] [address] [place] [address], [place] [address] Oct, [facility] [address] [id number] [address] [place] [address], [place] [address] 14 Oct, 2013 [facility] [address] [id number] [address] [place] [address], [place] [address] 14 Oct, 2013 [facility] [address] [id number] [address] [place] [address], [place] [address] 05 Oct, 2013 [facility] [address] [id number] [address] [place] [address], [place] [address] Oct, [facility] [address] [id number] [address] [place] [address], [place] [address] 04 Oct, 2013 [facility] [address] [id number] [address] [place] [address], [place] [address] Oct, [facility] [address] [id number] [address] [place] [address], [place] [address] Oct, [facility] [address] [id number] [address] [place] [address], [place] [address] Oct, [facility] [address] [id number] [address] [place] [address], [place] [address] Sep, [facility] [address] [id number] [address] [place] [address], [place] [address] Sep, [facility] [address] [id number] [address] [place] [address], [place] [address] Sep, [facility] [address] [id number] [address] [place] [address], [place] [address] Sep, [facility] [address] [id number] [address] [place] [address], [place] [address] Sep, [facility] [address] [id number] [address] [place] [address], [place] [address] Sep, [facility] [address] [id number] [address] [place] [address], [place] [address] Sep, [facility] [address] [id number] [address] [place] [address], [place] [address] Sep, [facility] [address] [id number] [address] [place] [address], [place] [address] Sep, [facility] [address] [id number] [address] [place] [address], [place] [address] Sep, [facility] [address] [id number] [address] [place] [address], [place] [address] 10 Aug, 2013 [facility] [address] [id number] [address] [place] [address], [place] [address] Aug, [facility] [address] [id number] [address] [place] [address], [place] [address] Jul, [facility] [address] [id number] [address] [place] [address], [place] [address] Jul, [facility] [address] [id number] [address] [place] [address], [place] [address] Jul, [facility] [address] [id number] [address] [place] [address], [place] [address] Jul, [facility] [address] [id number] [address] [place] [address], [place] [address] Jul, [facility] [address] [id number] [address] [place] [address] Jul, [facility] [address] [id number] [address] [place] [address], [place] [address] Jul, [facility] [address] [id number] [address] [place] [address] Jul, [facility] [address] [id number] [address] [place] [address] Jul, [facility] [address] [id number] [address] [place] [address] Jul, [facility] [address] [id number] [address] [place] [address] Jul, [facility] [address] [id number] [address] [place] [address] Jul, [facility] [address] [id number] [address] [place] [address] Jul, [facility] [address] [id number] [address] [place] [address] Jul, [facility] [address] [id number] [address] [place] [address] Jul, [facility] [address] [id number] [address] [place] [address], [place] [address] 05 Jul, 2012 [facility] [address] [id number] [address] [place] [address], [place] [address] Jul, 2012 [facility] [address] [id number] [address] [place] [address], [place] [address] Jul, 2012 [facility] [address] [id number] [address] [place] [address], [place] [address] Jul, 2012 [facility] [address] [id number] [address] [place] [address], [place] [address] Jun, 2012 [facility] [address] [id number] [address] [place] [address], [place] [address] Jun, 2012 [facility] [address] [id number] [address] [place] [address], [place] [address] Jun, 2012 [facility] [address] [id number] [address] [place] [address], [place] [address] Jun, 2012 [facility] [address] [id number] [address] [place] [address], [place] [address] Jun, 2012 [facility] [address] [id number] [address] [place] [address], [place] [address] Jun, 2012 [facility] [address] [id number] [address] [place] [address], [place] [address] Jun, 2012 [facility] [address] [id number] [address] [place] [address], [place] [address] Jun, 2012 [facility] [address] [id number] [address] [place] [address] Jun, [facility] [address] [id number] [address] [place] [address], [place] [address] Jun, [facility] [address] [id number] [address] [place] [address], [place] [address] Jun, [facility] [address] [id number] [address] [place] [address], [place] [address] May, [facility] [address] [id number] [address] [place] [address], [place] [address] 25 May, 2012 [facility] [address] [id number] [address] [place] [address], [place] [address] 19 May, 2012 [facility] [address] [id number] [address] [place] [address], [place] [address] 17 May, 2012 [facility] [address] [id number] [address] [place] [address], [place] [address] 11 May, 2012 [facility] [address] [id number] [address] [place] [address], [place] [address] 10 May, 2012 [facility] [address] [id number] [address] [place] [address], [place] [address] 09 May, 2012 [facility] [address] [id number] [address] [place] [address], [place] [address] 05 May, 2012 [facility] [address] [id number] [address] [place] [address], [place] [address] Apr, [facility] [address] [id number] [address] [place] [address], [place] [address] Apr, [facility] [address] [id number] [address] [place] [address], [place] [address] Apr, [facility] [address] [id number] [address] [place] [address], [place] [address] Apr, [facility] [address] [id number] [address] [place] [address], [place] [address] Apr, [facility] [address] [id number] [address] [place] [address], [place] [address] Mar, [facility] [address] [id number] [address] [place] [address], [place] [address] Mar, [facility] [address] [id number] [address] [place] [address], [place] [address] Mar, [facility] [address] [id number] [address] [place] [address], [place] [address] Mar, [facility] [address] [id number] [address] [place] [address], [place] [address] Mar, [facility] [address] [id number] [address] [place] [address], [place] [address] Mar, [facility] [address] [id number] [address] [place] [address], [place] [address] Mar, [facility] [address] [id number] [address] [place] [address], [place] [address] Mar, [facility] [address] [id number] [address] [place] [address], [place] [address] Feb, [facility] [address] [id number] [address] [place] [address], [place] [address] Feb, [facility] [address] [id number] [address] [place] [address], [place] [address] January, [facility] [address] [id number] [address] [place] [address], [place] [address] January, [facility] [address] [id number] [address] [place] [address], [place] [address] Dec, [facility] [address] [id number] [address] [place] [address], [place] [address] Dec, [facility] [address] [id number] [address] [place] [address], [place] [address] Nov, [facility] [address] [id number] [address] [place] [address], [place] [address] Nov, [facility] [address] [id number] [address] [place] [address], [place] [address] Nov, [facility] [address] [id number] [address] [place] [address], [place] [address] Nov, [facility] [address] [id number] [address] [place] [address], [place] [address] Oct, [facility] [address] [id number] [address] [place] [address], [place] [address] Oct, 2012 [facility] [address] [id number] [address] [place] [address], [place] [address] Oct, [facility] [address] [id number] [address] [place] [address], [place] [address] Oct, 2012 [facility] [address] [id number] [address] [place] [address], [place] [address] 16 Oct, 2012 [facility] [address] [id number] [address] [place] [address], [place] [address] 14 Oct, 2012 [facility] [address] [id number] [address] [place] [address], [place] [address] 08 Oct, 2012 [facility] [address] [id number] [address] [place] [address], [place] [address] 07 Oct, 2012 [facility] [address] [id number] [address] [place] [address], [place] [address] 03 Oct, 2012 [facility] [address] [id number] [address] [place] [address], [place] [address] Sep, [facility] [address] [id number] [address] [place] [address], [place] [address] Sep, [facility] [address] [id number] [address] [place] [address], [place] [address] Sep, [facility] [address] [id number] [address] [place] [address], [place] [address] Sep, [facility] [address] [id number] [address] [place] [address], [place] [address] Sep, [facility] [address] [id number] [address] [place] [address], [place] [address] Sep, [facility] [address] [id number] [address] [place] [address], [place] [address] Sep, [facility] [address] [id number] [address] [place] [address], [place] [address] Sep, [facility] [address] [id number] [address] [place] [address], [place] [address] Aug, [facility] [address] [id number] [address] [place] [address], [place] [address] Aug, [facility] [address] [id number] [address] [place] [address], [place] [address] Aug, [facility] [address] [id number] [address] [place] [address], [place] [address] Aug, [facility] [address] [id number] [address] [place] [address], [place] [address] Aug, [facility] [address] [id number] [address] [place] [address], [place] [address] Aug, [facility] [address] [id number] [address] [place] [address], [place] [address] Aug, [facility] [address] [id number] [address] [place] [address], [place] [address] Aug, [facility] [address] [id number] [address] [place] [address], [place] [address] Jul, [facility] [address] [id number] [address] [place] [address], [place] [address] Jul, [facility] [address] [id number] [address] [place] [address], [place] [address] Jul, [facility] [address] [id number] [address] [place] [address], [place] [address] Jul, [facility] [address] [id number] [address] [place] [address], [place] [address] Jul, [facility] [address] [id number] [address] [place] [address], [place] [address] Jul, [facility] [address] [id number] [address] [place] [address], [place] [address] Jun, [facility] [address] [id number] [address] [place] [address], [place] [address] Jun, [facility] [address] [id number] [address] [place] [address], [place] [address] Jun, [facility] [address] [id number] [address] [place] [address], [place] [address] Jun, [facility] [address] [id number] [address] [place] [address], [place] [address] Jun, [facility] [address] [id number] [address] [place] [address], [place] [address] Jun, [facility] [address] [id number] [address] [place] [address], [place] [address] Jun, [facility] [address] [id number] [address] [place] [address], [place] [address] Jun, [facility] [address] [id number] [address] [place] [address], [place] [address] 10 Jun, 2012 [facility] [address] [id number] [address] [place] [address], [place] [address] 26 May, 2012 [facility] [address] [id number] [address] [place] [address], [place] [address] 24 May, 2012 [facility] [address] [id number] [address] [place] [address], [place] [address] 18 May, 2012 [facility] [address] [id number] [address] [place] [address], [place] [address] 30 Apr, 2012 [facility] [address] [id number] [address] [place] [address], [place] [address] 29 Apr, 2012 [facility] [address] [id number] [address] [place] [address], [place] [address] Apr, [facility] [address] [id number] [address] [place] [address], [place] [address] 14 Apr, 2012 [facility] [address] [id number] [address] [place] [address], [place] [address] Apr, [facility] [address] [id number] [address] [place] [address], [place] [address] Apr, [facility] [address] [id number] [address] [place] [address], [place] [address] Mar, [facility] [address] [id number] [address] [place] [address], [place] [address] Mar, [facility] [facility] [address] [id number] [address] [place] [address], [place] [address] Mar, [facility] [address] [id number] [address] [place] [address], [place] [address] Mar, [facility] [address] [id number] [address] [place] [address], [place] [address] Feb, [facility] [address] [id number] [address] [place] [address], [place] [address] Feb, [facility] [address] [id number] [address] [place] [address], [place] [address] Feb, [facility] [address] [id number] [address] [place] [address], [place] [address] Feb, [facility] [address] [id number] [address] [place] [address], [place] [address] Feb, [facility] [address] [id number] [address] [place] [address], [place] [address] January, [facility] [address] [id number] [address] [place] [address], [place] [address] January, [facility] [address] [id number] [address] [place] [address], [place] [address] January, [facility] [address] [id number] [address] [place] [address], [place] [address] January, [facility] [address] [id number] [address] [place] [address], [place] [address] January, [facility] [address] [id number] [address] [place] [address], [place] [address] January, [facility] [address] [id number] [address] [place] [address], [place] [address] 24 Dec, 2011 [facility] [address] [id number] [address] [place] [address], [place] [address] 24 Dec, 2011 [facility] [address] [id number] [address] [place] [address], [place] [address] 17 Dec, 2011 [facility] [address] [id number] [address] [place] [address], [place] [address] 09 Dec, 2011 [facility] [address] [id number] [address] [place] [address], [place] [address] 06 Dec, 2011 [facility] [address] [id number] [address] [place] [address], [place] [address] 27 Nov, 2011 [facility] [address] [id number] [address] [place] [address], [place] [address] 14 Nov, 2011 [facility] [address] [id number] [address] [place] [address], [place] [address] 12 Nov, 2011 [facility] [address] [id number] [address] [place] [address], [place] [address] 07 Nov, 2011 [facility] [address] [id number] [address] [place] [address], [place] [address] 29 Oct, 2011 [facility] [address] [id number] [address] [place] [address], [place] [address] 28 Oct, 2011 [facility] [address] [id number] [address] [place] [address], [place] [address] 24 Oct, 2011 [facility] [address] [id number] [address] [place] [address], [place] [address] 13 Oct, 2011 [facility] [address] [id number] [address] [place] [address], [place] [address] 08 Oct, 2011 [facility] [address] [id number] [address] [place] [address], [place] [address] Sep, [facility] [address] [id number] [address] [place] [address], [place] [address] Sep, [facility] [address] [id number] [address] [place] [address], [place] [address] Sep, [facility] [address] [id number] [address] [place] [address], [place] [address] Sep, [facility] [address] [id number] [address] [place] [address], [place] [address] Sep, [facility] [address] [id number] [address] [place] [address], [place] [address] Sep, [facility] [address] [id number] [address] [place] [address], [place] [address] Aug, [facility] [address] [id number] [address] [place] [address], [place] [address] Aug, [facility] [address] [id number] [address] [place] [address] Aug, [facility] [address] [id number] [address] [place] [address], [place] [address] Jul, [facility] [address] [id number] [address] [place] [address] Jul, [facility] [address] [id number] [address] [place] [address] Jul, [facility] [address] [id number] [address] [place] [address] Jul, [facility] [address] [id number] [address] [place] [address], [place] [address] Jun, [facility] [address] [id number] [address] [place] [address], [place] [address] Jun, [facility] [address] [id number] [address] [place] [address] Jun, [facility] [address] [id number] [address] [place] [address] 10 Jun, 2011 [facility] [address] [id number] [address] [place] [address], [place] [address] 10 Jun, 2011 [facility] [address] [id number] [address] [place] [address], [place] [address] 10 Jun, 2011 [facility] [address] [id number] [address] [place] [address], [place] [address] 11 Mar, 2011 [facility] [address] [id number] [address] [place] [address], [place] [address] 18 Dec, 2010 [facility] [address] [id number] [address] [place] [address], [place] [address] 11 Dec, 2010 [facility] [address] [id number] [address] [place] [address], [place] [address] 18 Nov, 2010 [facility] [address] [id number] [address] [place] [address], [place] [address] 16 Nov, 2010 [facility] [address] [id number] [address] [place] [address], [place] [address] 10 Sep, 2010 [facility] [address] [id number] [address] [place] [address], [place] [address] 31 Aug, 2010 [facility] [address] [id number] [address] [place] [address], [place] [address] 29 Aug, 2010 [facility] [address] [id number] [address] [place] [address], [place] [address] 29 Aug, 2010 [facility] [address] [id number] [address] [place] [address], [place] [address] 29 Aug, 2010 [facility] [address] [id number] [address] [place] [address], [place] [address] 27 Aug, 2010 [facility] [address] [id number] [address] [place] [address], [place] [address] 14 Aug, 2010 [facility] [address] [id number] [address] [place] [address], [place] [address] 08 Aug, 2010 [facility] [address] [id number] [address] [place] [address], [place] [address] 08 Aug, 2010 [facility] [address] [id number] [address] [place] [address], [place] [address] Aug, [facility] [address] [id number] [address] [place] [address], [place] [address] Aug, [facility] [address] [id number] [address] [place] [address], [place] [address] Aug, [facility] [address] [id number] [address] [place] [address], [place] [address] Aug, [facility] [address] [id number] [address] [place] [address], [place] [address] Jul, [facility] [address] [id number] [address] [place] [address], [place] [address] Jul, [facility] [address] [id number] [address] [place] [address], [place] [address] Jul, [facility] [address] [id number] [address] [place] [address], [place] [address] Jul, [facility] [address] [id number] [address] [place] [address], [place] [address] Jul, [facility] [address] [id number] [address] [place] [address], [place] [address] Jul, [facility] [address] [id number] [address] [place] [address], [place] [address] Jun, [facility] [address] [id number] [address] [place] [address], [place] [address] Jun, [facility] [address] [id number] [address] [place] [address], [place] [address] Jun, [facility] [address] [id number] [address] [place] [address], [place] [address] Jun, [facility] [address] [id number] [address] [place] [address], [place] [address] 16 Apr, 2010 [facility] [address] [id number] [address] [place] [address], [place] [address] Mar, [facility] [address] [id number] [address] [place] [address], [place] [address] Feb, [facility] [address] [id number] [address] [place] [address], [place] [address] January, [facility] [address] [id number] [address] [place] [address], [place] [address] 15 Dec, 2009 [facility] [address] [id number] [address] [place] [address], [place] [address] Nov, [facility] [address] [id number] [address] [place] [address], [place] [address] Aug, [facility] [address] [id number] [address] [place] [address], [place] [address] Aug, [facility] [address] [id number] [address] [place] [address] Aug, [facility] [address] [id number] [address] [place] [address] Jul, [facility] [address] [id number] [address] [place] [address] Jul, [facility] [address] [id number] [address] [place] [address] Jul, [facility] [address] [id number] [address] [place] [address] 30 Jun, 2009 [facility] [address] [id number] [address] [place] [address], [place] [address] 29 Jun, 2009 [facility] [address] [id number] [address] [place] [address] Jun, [facility] [address] [id number] [address] [place] [address] 22 Jun, 2009 [facility] [address] [id number] [address] [place] [address] Jun, [facility] [place] [address] [facility] [id number] [address] [place] [address] Jun, [facility] [place] [address] [facility] [id number] [address] [place] [address] Apr, [facility] [place] [address] [facility] [id number] [address] [place] [address] Apr, [facility] [place] [address] [facility] [id number] [address] [place] [address] Feb, [facility] [place] [address] [facility] [id number] [address] [place] [address] January, [facility] [place] [address] [facility] [id number] [address] [place] [address] Dec, IMMUNIZATIONS No Known Immunizations SOCIAL HISTORY [...] History inability to urinate 09/16/15 Hospitalization History [facility] health ea rly 2000's Hospitalization History hyperkalemia 10/2017 Hospitalization History fluid in lung
--- OUTSIDE RECORDS SUMMARY | 2020-03-01 17:54 | XMS REPORT ---
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 Name Role Phone ROSELINE LUIS Unavailable PROBLEMS Type Condition ICD9-CM Code SMZ15-NT Code Onset Dates Condition S tatus SNOMED Code Problem Leukocytosis D72.829 Active 5053414 06 Problem Bipolar I disorder, most recent episode (or curr ent) mixed, moderate F31.62 Active 16473206 Problem Reactive airway disease J45.909 Active 489012126990 Problem Anxiety F41.9 Active 57210741 Problem Insomnia, unspecified type G47.00 Act sharon 084964175 Problem Essential hypertension I10 Active 94803905 Problem Morbid obesity E66.01 Active 84292 6002 Problem Skin cancer C44.90 Active 85740903 7 Problem DM neuro manif type II E11.49 Active 02360554 Problem Mild cognitive impairment G31.84 Acti ve 203498077 Problem Benign prostatic hyperplasia with lower urinary tract symptoms, unspecified morphology N40.1 Active 56583 6007 Problem Chronic pain G89.29 Active 2860766 1 Problem Diabetes E11.9 Active 05267925 Problem Retinal edema H35.81 Active 397443 6 Problem Anemia of chronic illness D63.8 Acti ve 408070280 Problem Falling R29.6 Active 858137038 Problem Pressure ulcer of other site, stage 3 L89.893 Active 705270851 Problem 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 Active 300134364 Problem Eye exam abnormal R93.8 Active 16 2567180 Problem Pure hypercholesterolemia E78.00 Acti ve 325719036 Problem Dysuria R30.0 Active 76682756 Problem Bipolar disorder, in partial remission, most rec ent episode depressed F31.75 Active 34302956 Problem Hypokalemia E87.6 Active 20830482 Problem Other iron deficiency anemia D50.8 A ctive 16801826 Problem Eustachian tube dysfunction, unspecified laterality H69.80 Active 19380043 Problem Primary osteoarthritis of right knee M17.11 Active 218611380311080 Problem Cough R05 Active 01698568 Problem Bipolar disorder F31.9 Active 137 78667 Problem Chronic diastolic (congestive) heart failure I50.3 2 Active 119848100 Problem Psychophysiological insomnia F51.04 A ctive 918029321 Problem Gastroesophageal reflux disease without esophagitis K21.9 Active 993788683 Problem Polyneuropathy associated with underlying disease G63 Active 024681486 Problem Other secondary acute gout, 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 0 Active 103936285 Problem Diabetic polyneuropathy associated with type 2 d iabetes mellitus E11.42 Active 12322398 Problem Chronic lymphocytic leukemia C91.10 A ctive 87330296 Problem Bilateral primary osteoarthritis of knee M17.0 Active 586612502 Problem Type 2 diabetes mellitus with diabetic neuropathy, uns pecified E11.40 Active 08717169 Problem custodial (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 Z79.4 Active 722671178 Problem Lymphocytosis D72.820 Active 129983 09 Problem Mood disorder F39 Active 334391 05 Problem Bipolar I disorder, most recent episode depressed, moderat e F31.32 Active 695353009 ALLERGIES No Information ENCOUNTERS Encounter Location Date Diagnosis [facility], [place] [address] [facility] [id number] [address] [place] [address] Dec, [facility], [place] [address] [facility] [id number] [address] [place] [address] 17 Dec, 2019 Chronic pain G89.29 [facility], [place] [address] [facility] [id number] [address] [place] [address] 13 Dec, 2019 [facility] [place] [address] [id number] [address] [place] [address] Dec, [facility], [place] [address] [facility] [id number] [address] [place] [address] 07 Dec, 2019 Gastroesophageal reflux dise ase without esophagitis K21.9 and Pure hypercholesterolemia E78.00 [facility], [place] [address] [facility] [id number] [address] [place] [address] Dec, Mood disorder F39 [facility] [place] [address] [id number] [address] [place] [address] 31 Nov, 2019 Other secondary acute gout, 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 [facility], [place] [address] [facility] [id number] [address] [place] [address] Nov, Gastroesophageal reflux dise ase without esophagitis K21.9 [facility] [place] [address] [facility] [id number] [address] [place] [address] Nov, Chronic pain G89.29 [facility], [place] [address] [facility] [id number] [address] [place] [address] Nov, Bipolar I disorder, most rec ent episode depressed, moderate F31.32 ; Anxiety F41.9 and Mild cognitive impairment G31.84 [place] [address] [facility] [id number] [address] [place] [address] Nov, [place] [address] [facility] [id number] [address] [place] [address] Nov, Syncope, unspecified syncope type R55 [place] [address] [facility] [id number] [address] [place] [address] Nov, Mood disorder F39 [place] [address] [facility] [id number] [address] [place] [address] Oct, Chronic pain G89.29 [place] [address] [facility] [id number] [address] [place] [address] Oct, [facility] [place] [address] [facility] [id number] [address] [place] [address] Oct, Mood disorder F39 [facility], [place] [address] [facility] [id number] [address] [place] [address] Oct, [place] [address] [facility] [id number] [address] [place] [address] Oct, Bipolar disorder, in partial remission, most recent episode depressed F31.75 and Mild cognitive impairment G31.84 [place] [address] [facility] [id number] [address] [place] [address] Oct, Mood disorder F39 [facility] [place] [address] [id number] [address] [place] [address] Sep, [facility] [address] [id number] [address] [place] [address] Sep, Mood disorder F39 [facility] [place] [address] [id number] [address] [place] [address] Sep, Bipolar disorder, in partial remission, most recent episode depressed F31.75 and Mild cognitive impairment G31.84 [facility] [place] [address] [id number] [address] [place] [address] Sep, Mood disorder F39 [facility] [place] [address] [id number] [address] [place] [address] Sep, [facility] [place] [address] [id number] [address] [place] [address] Sep, Mood disorder F39 [facility] [place] [address] [id number] [address] [place] [address] Sep, [facility] [place] [address] [id number] [address] [place] [address] Aug, Mood disorder F39 [facility] [place] [address] [id number] [address] [place] [address] Aug, [facility] [place] [address] [id number] [address] [place] [address] Aug, [facility] [place] [address] [id number] [address] [place] [address] Aug, [facility] [place] [address] [id number] [address] [place] [address] Aug, [facility] [address] [id number] [address] [place] [address] Aug, [facility] [place] [address] [id number] [address] [place] [address] Aug, [facility] [place] [address] [id number] [address] [place] [address] Aug, [facility] [place] [address] [id number] [address] [place] [address] Aug, Essential hypertension I10 [facility] [place] [address] [id number] [address] [place] [address] Aug, Bipolar disorder, in partial remission, most recent episode depressed F31.75 and Mild cognitive impairment G31.84 [facility] [place] [address] [id number] [address] [place] [address] Aug, Mood disorder F39 [facility] [place] [address] [id number] [address] [place] [address] Aug, [facility] [place] [address] [id number] [address] [place] [address] Aug, Bipolar disorder, in partial remission, most recent episode depressed F31.75 and Mild cognitive impairment G31.84 [facility] [place] [address] [id number] [address] [place] [address] Jul, Bipolar disorder, in partial remission, most recent episode depressed F31.75 and Mild cognitive impairment G31.84 [facility] [place] [address] [id number] [address] [place] [address] Jul, Psychophysiological insomnia F51.04 [facility], [place] [address] [id number] [address] [place] [address] Jul, [facility] [place] [address] [id number] [address] [place] [address] Jul, [facility] [place] [address] [id number] [address] [place] [address] Jul, [facility] [place] [address] [id number] [address] [place] [address] Jul, [facility] [place] [address] [id number] [address] [place] [address] Jul, [place] [address] [facility] [id number] [address] [place] [address] Jul, [place] [address] [facility] [id number] [address] [place] [address] Jul, Bipolar disorder, in partial remission, most recent episode depressed F31.75 and Mild cognitive impairment G31.84 [place] [address] [place] [id number] [address] [place] [address] Jul, Chronic pain G89.29 ; Diabet es E11.9 ; Essential hypertension I10 ; Ill feeling R68.89 ; Local infection of the skin and subcutaneous tissue, unspecified L08.9 and Other injury of unspecified body region, initial encounter T14.8XXA [place] [address] [facility] [id number] [address] [place] [address] Jun, Bipolar disorder, in partial remission, most recent episode depressed F31.75 and Mild cognitive impairment G31.84 [place] [address] [facility] [id number] [address] [place] [address] Jun, [place] [address] [facility] [id number] [address] [place] [address] Jun, Bipolar disorder, in partial remission, most recent episode depressed F31.75 and Mild cognitive impairment G31.84 [place] [address] [place] [id number] [address] [place] [address] Jun, Psychophysiological insomnia F51.04 [place] [address] 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 [id number] [address] [place] [address] Jun, Bipolar disorder F31.9 [facility], [place] [address] [facility] [id number] [address] [place] [address] May, Bipolar disorder, in partial remission, most recent episode depressed F31.75 and Mild cognitive impairment G31.84 [facility] [place] [address] [id number] [address] [place] [address] May, [facility] [place] [address] [facility] [id number] [address] [place] [address] Apr, Chronic pain G89.29 and Bipo lar disorder F31.9 [facility] [place] [address] [id number] [address] [place] [address] Mar, Bipolar disorder F31.9 and C hronic pain G89.29 [facility], [place] [address] [id number] [address] [place] [address] Feb, Bipolar disorder F31.9 [facility] [place] [address] [facility] [id number] [address] [place] [address] Feb, Cellulitis of right upper ex tremity L03.113 and Skin abrasion T14.8XXA [facility] [place] [address] [id number] [address] [place] [address] Feb, Bipolar disorder, in partial remission, most recent episode depressed F31.75 and Mild cognitive impairment G31.84 [facility] [place] [address] [id number] [address] [place] [address] Feb, Chronic pain G89.29 [facility] [place] [address] [facility] [id number] [address] [place] [address] Feb, Bipolar disorder, in partial remission, most recent episode depressed F31.75 and Mild cognitive impairment G31.84 [facility] [place] [address] [id number] [address] [place] [address] January, Bipolar disorder, in partial remission, most recent episode depressed F31.75 and Mild cognitive impairment G31.84 [facility] [place] [address] [id number] [address] [place] [address] January, Chronic pain G89.29 and Bipo lar disorder F31.9 [facility], [place] [address] [id number] [address] [place] [address] January, Bipolar disorder, in partial remission, most recent episode depressed F31.75 and Mild cognitive impairment G31.84 [facility] [place] [address] [id number] [address] [place] [address] Dec, [facility] [place] [address] [id number] [address] [place] [address] Dec, Chronic pain G89.29 and Bipo lar disorder F31.9 [facility] [place] [address] [id number] [address] [place] [address] Dec, Edema of both lower extremit ies R60.0 [facility] [place] [address] [id number] [address] [place] [address] Dec, Bipolar disorder F31.9 [facility] [place] [address] [id number] [address] [place] [address] Dec, Bipolar disorder, in partial remission, most recent episode depressed F31.75 and Mild cognitive impairment G31.84 [facility] [place] [address] [id number] [address] [place] [address] Nov, [facility] [place] [address] [id number] [address] [place] [address] Nov, Chronic pain G89.29 [facility] [place] [address] [id number] [address] [place] [address] Nov, Bipolar disorder, in partial remission, most recent episode depressed F31.75 and Mild cognitive impairment G31.84 [place] [address] [place] [id number] [address] [place] [address] Nov, Bipolar disorder F31.9 [place] [address] [place] [id number] [address] [place] [address] 04 Nov, 2018 Encounter for Medicare annua [...] unspecified morphology N40.1 and Essential hypertension I10 [place] [id number] [address] [place] [address] Oct, Chronic pain G89.[address] [address] 18 Oct, 2018 Diabetes E11.9 [place] [address] [place] [id number] [address] [place] [address] Oct, Bipolar I disorder, most rec ent episode (or current) mixed, moderate F31.62 and Mild cognitive impairment G31.84 [place] [address] [place] [id number] [address] [place] [address] Oct, Bipolar I disorder, most rec ent episode (or current) mixed, moderate F31.62 and Mild cognitive impairment G31.84 [place] [address] [place] [id number] [address] [place] [address] Sep, Bipolar I disorder, most rec ent episode (or current) mixed, moderate F31.62 and Mild cognitive impairment G31.84 [place] [address] [place] [id number] [address] [place] [address] Sep, [facility] [place] [address] [id number] [address] [place] [address] Sep, Diabetes E11.9 ; Hypoxia R09 .02 ; Hyperglycemia R73.9 ; Therapeutic drug monitoring Z51.81 ; BMI 50.0-59.9, adult Z68.43 and Skin cancer C44.90 [place] [address] [facility] [id number] [address] [place] [address] Sep, Chronic pain G89.29 [place] [address] [id number] [address] [place] [address] Sep, Bipolar I disorder, most rec ent episode (or current) mixed, moderate F31.62 [place] [address] [facility] [id number] [address] [place] [address] Sep, [place] [address] [facility] [id number] [address] [place] [address] Sep, [facility] [place] [address] [id number] [address] [place] [address] Aug, Chronic pain G89.29 [facility] [place] [address] [id number] [address] [place] [address] Aug, Bipolar I disorder, most rec ent episode (or current) mixed, moderate F31.62 [place] [address] [facility] [id number] [address] [place] [address] Aug, Bipolar I disorder, most rec ent episode (or current) mixed, moderate F31.62 and Mild cognitive impairment G31.84 [facility] [place] [address] [id number] [address] [place] [address] Jul, [facility] [place] [address] [facility] [id number] [address] [place] [address] Jul, Chronic pain G89.29 [facility] [place] [address] [facility] [id number] [address] [place] [address] Jul, Bipolar I disorder, most rec ent episode (or current) mixed, moderate F31.62 and Mild cognitive impairment G31.84 [facility] [place] [address] [id number] [address] [place] [address] Jul, Bipolar I disorder, most rec ent episode (or current) mixed, moderate F31.62 and MCI (mild cognitive impairment) G31.84 [facility] [place] [address] [id number] [address] [place] [address] Jul, [facility] [place] [address] [facility] [id number] [address] [place] [address] Jul, [place] [address] [facility] [id number] [address] [place] [address] Jul, Bipolar I disorder, most rec ent episode (or current) mixed, moderate F31.62 [place] [address] [facility] [id number] [address] [place] [address] Jul, Chronic pain G89.29 [place] [address] [facility] [id number] [address] [place] [address] Jun, Bipolar I disorder, most rec ent episode (or current) mixed, moderate F31.62 [place] [address] [facility] [id number] [address] [place] [address] Jun, Pre-procedure lab exam Z01.8 12 [place] [address] [facility] [id number] [address] [place] [address] Jun, [facility] [address] [id number] [place] [id number] Jun, [facility] [place] [address] [facility] [id number] [address] [place] [address] Jun, [place] [address] [facility] [id number] [address] [place] [address] Jun, Forgetfulness R68.89 ; Pre-s yncope R55 ; Localized edema R60.0 ; Other iron deficiency anemia D50.8 and BMI 50.0-59.9, adult Z68.43 [facility] [place] [address] [facility] [id number] [address] [place] [address] Jun, Chronic pain G89.29 [facility], [place] [address] [facility] [id number] [address] [place] [phone] Jun, Chronic pain G89.29 [facility], [place] [address] [place] [id number] [address] [place] [phone] Jun, Bipolar I disorder, most rec ent episode (or current) mixed, moderate F31.62 [place] [address] [place] [id number] [address] [place] [phone] May, Chronic pain G89.29 [place] [address] [facility] [id number] [address] [place] [phone] Apr, [place] [address] [place] [id number] [place] [phone] Apr, Chronic pain G89.29 [place] [address] [place] [id number] [address] [place] [id number] Apr, Primary osteoarthritis of ri ght knee M17.11 [place] [address] [place] [id number] [place] [phone] Mar, [place] [address] [facility] [id number] [address] [place] [phone] Mar, BMI 50.0-59.9, adult Z68.43 and Bipolar disorder, in partial remission, most recent episode depressed F31.75 [place] [address] [place] [id number] [address] [place] [phone] Mar, Diabetes E11.9 ; Pure hyperc holesterolemia E78.00 ; Essential hypertension I10 ; Nausea with vomiting, unspecified R11.2 and Headache, unspecified headache type R51 [place] [address] [facility] [id number] [address] [place] [id number] Mar, Bipolar I disorder, most rec ent episode (or current) mixed, moderate F31.62 [place] [address] [facility] [id number] [address] [place] [address] Mar, Bipolar I disorder, most rec ent episode (or current) mixed, moderate F31.62 [facility], [place] [address] [facility] [id number] [address] [place] [address] Mar, Chronic pain G89.29 [facility], [place] [address] [facility] [id number] [address] [place] [phone] Mar, Bipolar I disorder, most rec ent episode (or current) mixed, moderate F31.62 [facility], [place] [address] [facility] [id number] [address] [place] [address] Feb, Bipolar I disorder, most rec ent episode (or current) mixed, moderate F31.62 [place] [address] [facility] [id number] [address] [place] [address] Feb, Chronic pain G89.29 [place] [address] [facility] [id number] [address] [place] [address] Feb, Decubitus ulcer of right josselin t, stage 3 L89.893 and BMI 50.0-59.9, adult Z68.43 [place] [address] [facility] [id number] [address] [place] [id number] Feb, Bipolar I disorder, most rec ent episode (or current) mixed, moderate F31.62 [place] [address] [facility] [id number] [address] [place] [phone] Feb, [facility], [place] [address] [facility] [id number] [address] [place] [address] January, [facility], [place] [address] [facility] [id number] [address] [place] [address] January, Chronic pain G89.29 [facility], [place] [address] [facility] [id number] [address] [place] [address] January, Bipolar I disorder, most rec ent episode (or current) mixed, moderate F31.62 [place] [id number] [place] [address] January, Bipolar I disorder, most rec ent episode (or current) mixed, moderate F31.62 [place] [address] [address] Dec, Bipolar I disorder, most rec ent episode (or current) mixed, moderate F31.62 and BMI 50.0-59.9, adult Z68.43 [place] [address] [address] Dec, Bipolar I disorder, most rec ent episode (or current) mixed, moderate F31.62 [place] [address] [address] Dec, Chronic pain G89.29 [place] [address] [address] Dec, DM neuro manif type II E11.4 9 ; Right flank pain R10.9 ; custodial 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 Z79.891 ; Encounter for medication monitoring Z51.81 and BMI 50.0-59.9, adult Z68.43 [place] [address] [address] Dec, Bipolar I disorder, most rec ent episode (or current) mixed, moderate F31.62 [place] [address] [address] [place] [id number] [address] [place] [address] Nov, Bipolar I disorder, most rec ent episode (or current) mixed, moderate F31.62 [place] [address] [place] [id number] [address] [place] [address] Nov, Chronic pain G89.29 [place] [address] [place] [id number] [place] [address] Nov, Bipolar I disorder, most rec ent episode (or current) mixed, moderate F31.62 [place] [address] [address] Nov, Hypokalemia E87.6 [facility], [place] [address] [place] [id number] [address] [place] [address] Nov, Bipolar I disorder, most rec ent episode (or current) mixed, moderate F31.62 [facility], [place] [address] [place] [id number] [address] [place] [address] Oct, Chronic pain G89.29 [place] [address] [address] Oct, BMI 50.0-59.9, adult Z68.43 and Bipolar I disorder, most recent episode (or current) mixed, moderate F31.62 [place] [address] [address] Oct, Bipolar I disorder, most rec ent episode (or current) mixed, moderate F31.62 [place] [address] [address] Oct, [place] [address] [address] Oct, Hypokalemia E87.6 [place] [address] [place] [id number] [place] [address] Oct, DM neuro manif type II E11.4 9 [place] [address] [address] Oct, Bipolar I disorder, most rec ent episode (or current) mixed, moderate F31.62 [place] [address] [place] [id number] [place] [address] Oct, Bipolar I disorder, most rec ent episode (or current) mixed, moderate F31.62 [facility], [place] [address] [place] [id number] [address] [place] [address] 14 Oct, 2017 Hyperkalemia E87.5 ; Falling R29.6 ; BMI 50.0-59.9, adult Z68.43 and Acute left ankle pain M25.572 [place] [address] [place] [id number] [address] [place] [address] 08 Oct, 2017 DM neuro manif type II E11.4 9 [place] [address] [place] [id number] [address] [place] [address] Oct, [place] [address] [address] Sep, Chronic pain G89.29 [place] [address] [place] [id number] [place] [address] Sep, [place] [address] [address] Sep, Bilateral primary osteoarthr itis of knee M17.0 [place] [address] [address] Sep, Generalized edema R60.1 [place] [address] [place] [address] Sep, Bipolar I disorder, most rec ent episode (or current) mixed, moderate F31.62 [place] [address] [address] 15 Sep, 2017 Hypoxia R09.02 ; Other hyper volemia E87.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 [id number] [address] [place] [address] Aug, Generalized edema R60.1 [facility], [place] [address] [facility] [id number] [address] [place] [address] Aug, [facility], [place] [address] [facility] [id number] [address] [place] [address] Aug, [facility], [place] [address] [facility] [id number] [address] [place] [address] 14 Aug, 2017 Bipolar I disorder, most rec ent episode (or current) mixed, moderate F31.62 [facility], [place] [address] [facility] [id number] [address] [place] [address] Aug, Bipolar I disorder, most rec ent episode (or current) mixed, moderate F31.62 [place] [address] [facility] [id number] [address] [place] [address] Aug, Chronic pain G89.29 [facility], [place] [address] [facility] [id number] [address] [place] [address] 30 Jul, 2017 Bipolar I disorder, most rec ent episode (or current) mixed, moderate F31.62 [facility], [place] [address] [facility] [id number] [address] [place] [address] Jul, Bipolar I disorder, most rec ent episode (or current) mixed, moderate F31.62 and BMI 60.0-69.9, adult Z68.44 [facility], [place] [address] [facility] [id number] [address] [place] [address] 16 Jul, 2017 Bipolar I disorder, most rec ent episode (or current) mixed, moderate F31.62 [facility], [place] [address] [facility] [id number] [address] [place] [address] 06 Jul, 2017 Chronic pain G89.29 [facility], [place] [address] [facility] [id number] [address] [place] [address] Jul, Bipolar I disorder, most rec ent episode (or current) mixed, moderate F31.62 [facility], [place] [address] [id number] [address] [place] [address] Jun, Polyneuropathy associated wi th underlying disease G63 and Diabetes E11.9 [facility], [place] [address] [id number] [address] [place] [address] Jun, Bipolar I disorder, most rec ent episode (or current) mixed, moderate F31.62 [facility], [place] [address] [facility] [id number] [address] [place] [address] Jun, Chronic pain G89.29 [facility], [place] [address] [facility] [id number] [address] [place] [address] May, Bipolar I disorder, most rec ent episode (or current) mixed, moderate F31.62 [facility], [place] [address] [facility] [id number] [address] [place] [address] May, Bipolar I disorder, most rec ent episode (or current) mixed, moderate F31.62 [facility], [place] [address] [id number] [address] [place] [address] May, Diabetic polyneuropathy asso ciated with type 2 diabetes mellitus E11.42 [facility], [place] [address] [id number] [address] [place] [id number] 18 May, 2017 Bipolar I disorder, most rec ent episode (or current) mixed, moderate F31.62 [facility], [place] [address] [facility] [id number] [address] [place] [address] May, Bipolar I disorder, most rec ent episode (or current) mixed, moderate F31.62 [facility], [place] [address] [facility] [id number] [address] [place] [address] May, Chronic pain G89.29 [facility], [place] [address] [id number] [address] [place] [address] Apr, Bipolar I disorder, most rec ent episode (or current) mixed, moderate F31.62 [facility], [place] [address] [facility] [id number] [address] [place] [address] Apr, [facility], [place] [address] [facility] [id number] [address] [place] [address] Apr, Chronic pain G89.29 and DM n euro manif type II E11.49 [facility], [place] [address] [facility] [id number] [address] [place] [address] Apr, [facility], [place] [address] [facility] [id number] [address] [place] [address] Apr, Bipolar I disorder, most rec ent episode (or current) mixed, moderate F31.62 [facility], [place] [address] [facility] [id number] [address] [place] [address] Apr, Chronic pain G89.29 [facility], [place] [address] [place] [id number] [address] [place] [address] Apr, Iliotibial band syndrome, le ft M76.32 [facility], [place] [address] [facility] [id number] [address] [place] [address] Apr, Bipolar I disorder, most rec ent episode (or current) mixed, moderate F31.62 [facility], [place] [address] [place] [id number] [address] [place] [address] Mar, Bipolar I disorder, most rec ent episode (or current) mixed, moderate F31.62 [facility], [place] [address] [place] [id number] [address] [place] [address] Mar, Bipolar I disorder, most rec ent episode (or current) mixed, moderate F31.62 [facility], [place] [address] [facility] [id number] [address] [place] [address] Mar, [facility], [place] [address] [facility] [id number] [address] [place] [address] Mar, Bipolar I disorder, most rec ent episode (or current) mixed, moderate F31.62 [facility], [place] [address] [place] [id number] [address] [place] [address] Mar, Chronic pain G89.29 [facility], [place] [address] [id number] [address] [place] [address] Mar, Bipolar I disorder, most rec ent episode (or current) mixed, moderate F31.62 [facility], [place] [address] [id number] [address] [place] [address] Mar, Bipolar I disorder, most rec ent episode (or current) mixed, moderate F31.62 [facility], [place] [address] [id number] [address] [place] [address] Mar, Acute pain of left knee M25. 562 ; Left hip pain M25.552 ; Generalized edema R60.1 and Tongue swelling R22.0 [facility], [place] [address] [id number] [address] [place] [address] Mar, [facility], [place] [address] [facility] [id number] [address] [place] [address] Feb, Chronic pain G89.29 [facility], [place] [address] [id number] [address] [place] [address] Feb, Diabetes E11.9 [facility], [place] [address] [id number] [address] [place] [address] January, Chronic pain G89.29 [facility], [place] [address] [id number] [address] [place] [address] January, [facility], [place] [address] [facility] [id number] [address] [place] [address] January, Bipolar I disorder, most rec ent episode (or current) mixed, moderate F31.62 [facility], [place] [address] [facility] [id number] [address] [place] [address] Dec, Bipolar I disorder, most rec ent episode (or current) mixed, moderate F31.62 [facility], [place] [address] [facility] [id number] [address] [place] [address] Dec, Chronic pain G89.29 [place] [address] [facility] [id number] [address] [place] [address] Dec, Bipolar I disorder, most rec ent episode (or current) mixed, moderate F31.62 [facility], [place] [address] [facility] [id number] [address] [place] [address] Dec, Diabetes E11.9 ; Essential h ypertension I10 ; Chronic pain G89.29 and Morbid obesity E66.01 [facility], [place] [address] [facility] [id number] [address] [place] [address] Dec, [place] [address] [facility] [id number] [address] [place] [address] Dec, Bipolar I disorder, most rec ent episode (or current) mixed, moderate F31.62 [place] [address] [place] [id number] [address] [place] [address] Dec, Bipolar I disorder, most rec ent episode (or current) mixed, moderate F31.62 [place] [address] [facility] [id number] [address] [place] [address] Nov, Chronic pain G89.29 [facility], [place] [address] [facility] [id number] [address] [place] [address] Nov, Bipolar I disorder, most rec ent episode (or current) mixed, moderate F31.62 [place] [address] [facility] [id number] [address] [place] [address] Nov, [facility], [place] [address] [facility] [id number] [address] [place] [address] Nov, Bipolar I disorder, most rec ent episode (or current) mixed, moderate F31.62 [place] [address] [facility] [id number] [address] [place] [address] Nov, Bipolar I disorder, most rec ent episode (or current) mixed, moderate F31.62 [place] [address] [facility] [id number] [address] [place] [address] Nov, [place] [address] [id number] [address] [place] [phone] Nov, [facility], [place] [address] [facility] [id number] [address] [place] [address] Nov, [facility], [place] [address] [facility] [id number] [address] [place] [address] Oct, Chronic pain G89.29 [facility], [place] [address] [facility] [id number] [address] [place] [address] Oct, Bipolar I disorder, most rec ent episode (or current) mixed, moderate F31.62 [facility], [place] [address] [facility] [id number] [address] [place] [address] Oct, [facility], [place] [address] 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 [id number] [address] [place] [address] Oct, [facility], [place] [address] [facility] [id number] [address] [place] [address] Oct, Diabetes E11.9 [facility], [place] [address] [facility] [id number] [address] [place] [address] Oct, Bipolar I disorder, most rec ent episode (or current) mixed, moderate F31.62 [facility], [place] [address] [facility] [id number] [address] [place] [address] Sep, Chronic pain G89.29 [facility], [place] [address] [facility] [id number] [address] [place] [address] Sep, Chronic pain G89.29 [facility], [place] [address] [facility] [id number] [address] [place] [address] Aug, Chronic pain G89.29 [facility], [place] [address] [place] [id number] [address] [place] [address] Jul, [facility], [place] [address] [place] [id number] [address] [place] [address] Jul, Diabetes E11.9 [facility], [place] [address] [place] [id number] [address] [place] [address] Jul, Chronic pain G89.29 [place] [address] [place] [id number] [place] [address] Jul, Bipolar I disorder, most rec ent episode (or current) mixed, moderate F31.62 [place] [address] [place] [id number] [place] [address] Jun, Bipolar I disorder, most rec ent episode (or current) mixed, moderate F31.62 [place] [address] [address] Jun, [place] [address] [place] [id number] [place] [address] Jun, Bipolar I disorder, most rec ent episode (or current) mixed, moderate F31.62 [place] [address] [address] 30 May, 2016 Insomnia, unspecified type G 47.00 [place] [address] [place] [id number] [address] [place] [address] May, Bipolar I disorder, most rec ent episode (or current) mixed, moderate F31.62 [facility], [place] [address] [place] [id number] [address] [place] [address] 14 May, 2016 [place] [address] [place] [id number] [place] [phone] 08 May, 2016 Bipolar I disorder, most rec ent episode (or current) mixed, moderate F31.62 [place] [address] [place] [id number] [address] [place] [phone] 06 May, 2016 Diabetes E11.9 and Essential hypertension I10 [facility] [place] [address] [facility] [id number] [address] [place] [phone] Apr, Chronic pain G89.29 [place] [address] [facility] [id number] [address] [place] [id number] Apr, Bipolar I disorder, most rec ent episode (or current) mixed, moderate F31.62 [place] [address] [facility] [id number] [address] [place] [phone] Apr, [place] [address] [facility] [id number] [address] [place] [phone] Apr, [place] [address] [facility] [id number] [address] [place] [phone] Mar, Chronic pain G89.29 ; Headac he, unspecified headache type R51 ; Neuropathy G62.9 ; Pain of right hip joint M25.551 and Essential hypertension I10 [place] [address] [facility] [id number] [address] [place] [phone] Mar, Chronic pain G89.29 [place] [address] [facility] [id number] [address] [place] [phone] Mar, Bipolar I disorder, most rec ent episode (or current) mixed, moderate F31.62 [place] [address] [facility] [id number] [address] [place] [phone] Feb, Bipolar I disorder, most rec ent episode (or current) mixed, moderate F31.62 and Insomnia, unspecified type G47.00 [place] [address] [facility] [id number] [address] [place] [phone] Feb, Chronic pain G89.29 [place] [address] [facility] [id number] [address] [place] [phone] Feb, Bipolar I disorder, most rec ent episode (or current) mixed, moderate F31.62 [place] [address] [facility] [id number] [address] [place] [phone] January, Bipolar I disorder, most rec ent episode (or current) mixed, moderate F31.62 [facility] [place] [address] [facility] [id number] [address] [place] [phone] January, Chronic pain G89.29 [facility] [place] [address] [facility] [id number] [address] [place] [phone] January, Chronic pain G89.29 and Esse ntial hypertension I10 [facility] [place] [address] [facility] [id number] [address] [place] [phone] January, Bipolar I disorder, most rec ent episode (or current) mixed, moderate F31.62 [facility] [place] [address] [facility] [address] [facility] [id number] [address] [place] [id number] Dec, [facility], [place] [address] [facility] [id number] [address] [place] [id number] Dec, [facility], [place] [address] [facility] [id number] [address] [place] [id number] Dec, [facility], [place] [address] [facility] [id number] [address] [place] [address] Dec, [facility], [place] [address] [place] [id number] [address] [place] [id number] Nov, Reactive airway disease J45. 909 [facility], [place] [address] [place] [id number] [address] [place] [id number] Nov, [facility], [place] [address] [id number] [address] [place] [id number] Nov, [facility], [place] [address] [facility] [id number] [address] [place] [id number] Nov, [facility], [place] [address] [place] [id number] [address] [place] [id number] Nov, [facility], [place] [address] [place] [id number] [address] [place] [address] Nov, Onychomycosis B35.1 ; Hammer toe M20.40 ; Loco or callus L84 and DM neuro manif type II E11.49 [place] [address] [place] [id number] [address] [place] [address] Nov, Chronic pain G89.29 ; Leukoc ytosis D72.829 and Diabetes E11.9 [place] [address] [place] [id number] [address] [place] [id number] Nov, [place] [address] [id number] Oct, Bronchitis J40 [place] [address] [address] Oct, [place] [address] [address] Oct, [place] [address] [id number] Oct, Mastoiditis, unspecified lat erality H70.90 and Type 2 diabetes mellitus with complication E11.8 [place] [address] [address] Sep, [place] [address] [address] Sep, Dysuria R30.0 ; Cough R05 ; Benign prostatic hyperplasia with lower urinary tract symptoms, unspecified morphology N40.1 ; Hypokalemia E87.6 and Eustachian tube dysfunction, unspecified laterality H69.80 [place] [address] [address] Sep, Moderate mixed bipolar I dis order F31.62 [place] [address] [id number] Sep, Hypokalemia E87.6 [place] [address] [address] Sep, [place] [address] [id number] Sep, Upper respiratory tract infe ction, unspecified type J06.9 [facility], [place] [address] [id number] [address] [place] [address] Aug, [facility], [place] [address] [id number] [address] [place] [id number] Aug, Dysuria R30.0 [facility], [place] [address] [id number] [address] [place] [id number] Aug, [facility], [place] [address] [id number] [address] [place] [id number] Jul, [facility], [place] [address] [id number] [address] [place] [id number] Jul, [facility], [place] [address] [id number] [address] [place] [id number] Jul, [facility], [place] [address] [id number] [address] [place] [address] Jul, [facility], [place] [address] [id number] [address] [place] [id number] Jun, [facility], [place] [address] [id number] [address] [place] [address] Jun, [facility], [place] [address] [id number] [address] [place] [address] Jun, [facility], [place] [address] [id number] [address] [place] [address] May, [facility], [place] [address] [id number] [address] [place] [address] May, Bipolar I disorder, most rec ent episode (or current) mixed, moderate 296.62 [facility], [place] [address] [id number] [address] [place] [id number] 16 May, 2015 [facility], [place] [address] [id number] [address] [place] [address] May, Bipolar I disorder, most rec ent episode (or current) mixed, moderate 296.62 and Major depressive disorder, recurrent episode, severe, specified as with psychotic behavior 296.34 [facility], [place] [address] [id number] [address] [place] [address] May, Bipolar I disorder, most rec ent episode (or current) mixed, moderate 296.62 [facility], [place] [address] [id number] [address] [place] [id number] May, [facility], [place] [address] [id number] [address] [place] [address] Apr, [facility], [place] [address] [id number] [address] [place] [address] Apr, [facility], [place] [address] [place] [id number] [address] [place] [address] Apr, Unspecified disorder of kidn ey and ureter 593.9 and Diabetes mellitus type 2, uncontrolled 250.02 [facility], [place] [address] [place] [id number] [address] [place] [address] Apr, [facility], [place] [address] [facility] [id number] [address] [place] [address] Apr, [facility], [place] [address] [place] [id number] [address] [place] [id number] Apr, [facility], [place] [address] [facility] [id number] [address] [place] [id number] Apr, [facility], [place] [address] [id number] [address] [place] [address] Apr, Diabetes mellitus type II, u ncontrolled 250.02 [facility], [place] [address] [id number] [address] [place] [address] Apr, [facility], [place] [address] [facility] [id number] [address] [place] [address] Mar, [facility], [place] [address] [id number] [address] [place] [address] Mar, [facility], [place] [address] [facility] [id number] [address] [place] [address] Mar, [facility], [place] [address] [id number] [address] [place] [address] Mar, Major depressive disorder, r ecurrent episode, severe, specified as with psychotic behavior 296.34 and Bipolar I disorder, most recent episode (or current) mixed, moderate 296.62 [facility], [place] [address] [id number] [address] [place] [address] Mar, Diabetes 250.00 ; Anuria 788 .5 ; Nausea and vomiting 787.01 and Diarrhea 787.91 [facility], [place] [address] [facility] [id number] [address] [place] [address] Mar, Diabetes 250.00 [facility], [place] [address] [place] [id number] [address] [place] [address] Mar, [facility], [place] [address] [place] [id number] [address] [place] [address] Mar, Diabetes 250.00 [facility], [place] [address] [facility] [id number] [address] [place] [address] Mar, [facility], [place] [address] [place] [id number] [address] [place] [address] Mar, [facility], [place] [address] [place] [id number] [address] [place] [address] Mar, [facility], [place] [address] [place] [id number] [address] [place] [address] Mar, [facility], [place] [address] [facility] [id number] [address] [place] [address] Mar, Bipolar I disorder, most rec ent episode (or current) mixed, moderate 296.62 and Major depressive disorder, recurrent episode, severe, specified as with psychotic behavior 296.34 [facility], [place] [address] [place] [id number] [address] [place] [address] Mar, Magnesium deficiency 275.2 ; Hypokalemia 276.8 ; Nausea & vomiting 787.01 and Diabetes mellitus type 2, uncontrolled 250.02 [facility], [place] [address] [address] Feb, [facility], [place] [address] [address] Feb, Bipolar I disorder, most rec ent episode (or current) mixed, moderate 296.62 [place] [address] [address] Feb, Nausea and vomiting 787.01 ; Left elbow pain 719.42 ; Anuria 788.5 and Diabetes 250.00 [place] [address] [address] Feb, [place] [address] [address] Feb, Hypopotassemia 276.8 and Hyp okalemia 276.8 [place] [address] [address] Feb, Hypopotassemia 276.8 and Hyp okalemia 276.8 [place] [address] [address] Feb, Seborrheic keratoses 702.19 [place] [address] [address] Feb, Hypopotassemia 276.8 and Low magnesium levels 275.2 [place] [address] [address] January, [place] [address] [address] January, [facility], [place] [address] [address] January, [place] [address] [address] January, Scalp lesion 709.9 [facility] [address] [id number] [address] [place] [address] January, [facility] [address] [id number] [address] [place] [address] Dec, Tear of medial cartilage or meniscus of knee, current 836.0 and 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 [facility] [address] [id number] [address] [place] [address] Dec, [facility] [address] [id number] [address] [place] [address] Dec, [facility] [address] [id number] [address] [place] [address] Dec, Squamous cell carcinoma, 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 [facility] [address] [id number] [address] [place] [address] Dec, [facility] [address] [id number] [address] [place] [address] Dec, [facility] [address] [id number] [address] [place] [address] Nov, [facility] [address] [id number] [address] [place] [id number] Nov, [facility] [address] [id number] [address] [place] [address] Nov, [facility] [address] [id number] [address] [place] [address] Nov, [facility] [address] [id number] [address] [place] [address] Nov, [facility] [address] [id number] [address] [place] [address] Nov, [facility] [address] [id number] [address] [place] [id number] Nov, [facility] [address] [id number] [address] [place] [address], [place] [id number] Nov, 2014 [facility] [address] [id number] [address] [place] [address], [place] [id number] Nov, 2014 [facility] [address] [id number] [address] [place] [address], [place] [address] Nov, 2014 [facility] [address] [id number] [address] [place] [address], [place] [address] Nov, 2014 [facility] [address] [id number] [address] [place] [address], [place] [id number] Nov, 2014 [facility] [address] [id number] [address] [place] [address], [place] [id number] Oct, 2014 [facility] [address] [id number] [address] [place] [address], [place] [address] Oct, 2014 [facility] [address] [id number] [address] [place] [address], [place] [id number] Oct, 2014 [facility] [address] [id number] [address] [place] [address], [place] [id number] Oct, 2014 [facility] [address] [id number] [address] [place] [address], [place] [id number] Oct, 2014 [facility] [address] [id number] [address] [place] [address], [place] [id number] Oct, 2014 [facility] [address] [id number] [address] [place] [address], [place] [address] Oct, 2014 [facility] [address] [id number] [address] [place] [address], [place] [id number] Oct, 2014 [facility] [address] [id number] [address] [place] [address], [place] [id number] Oct, 2014 [facility] [address] [id number] [address] [place] [address], [place] [id number] Sep, [facility] [address] [id number] [address] [place] [id number] Sep, [facility] [address] [id number] [address] [place] [address], [place] [address] Sep, [facility] [address] [id number] [address] [place] [address], [place] [id number] Sep, [facility] [address] [id number] [address] [place] [address], [place] [address] Sep, [facility] [address] [id number] [address] [place] [address], [place] [id number] Sep, [facility] [address] [id number] [address] [place] [address], [place] [id number] Sep, [facility] [address] [id number] [address] [place] [address], [place] [address] Sep, [facility] [address] [id number] [address] [place] [address], [place] [id number] Sep, [facility] [address] [id number] [address] [place] [address], [place] [address] Sep, [facility] [address] [id number] [address] [place] [address], [place] [id number] Sep, [facility] [address] [id number] [address] [place] [address], [place] [address] Sep, [facility] [address] [id number] [address] [place] [address], [place] [id number] Sep, [facility] [address] [id number] [address] [place] [address], [place] [address] Sep, [facility] [address] [id number] [address] [place] [address], [place] [address] Sep, [facility] [address] [id number] [address] [place] [address], [place] [address] Sep, [facility] [address] [id number] [address] [place] [address], [place] [address] Aug, [facility] [address] [id number] [facility] [address] Aug, [facility] [address] [id number] [facility] [address] Aug, [facility] [address] [id number] [facility] [address] Aug, [facility] [address] [id number] [address] [place] [address], [place] [id number] Aug, [facility] [address] [id number] [address] [place] [address], [place] [id number] Aug, [facility] [address] [id number] [address] [place] [address], [place] [address] Aug, [facility] [address] [id number] [address] [place] [address], [place] [address] Aug, [facility] [address] [id number] [address] [place] [address], [place] [address] Aug, [facility] [address] [id number] [address] [place] [address], [place] [id number] Aug, [facility] [address] [id number] [address] [place] [address], [place] [id number] Aug, [facility] [address] [place] [id number] Aug, [facility] [address] [id number] [address] [place] [address], [place] [address] Aug, [facility] [address] [id number] [address] [place] [address], [place] [address] Aug, [facility] [address] [id number] [address] [place] [address], [place] [address] Aug, [facility] [address] [id number] [address] [place] [address], [place] [address] Aug, [facility] [address] [id number] [address] [place] [address], [place] [id number] Aug, [facility] [address] [id number] [address] [place] [address], [place] [address] Aug, [facility] [address] [id number] [address] [place] [address], [place] [address] Aug, [facility] [address] [id number] [address] [place] [address], [place] [address] Aug, [facility] [address] [id number] [address] [place] [address], [place] [address] Aug, [facility] [address] [id number] [address] [place] [address], [place] [address] Aug, [facility] [address] [id number] [address] [place] [address], [place] [address] Aug, [facility] [address] [id number] [address] [place] [address], [place] [address] Aug, [facility] [address] [id number] [address] [place] [address], [place] [address] Aug, [facility] [address] [id number] [address] [place] [address], [place] [address] Aug, [facility] [address] [id number] [address] [place] [address], [place] [address] Aug, [facility] [address] [id number] [address] [place] [address], [place] [address] Aug, [facility] [address] [id number] [address] [place] [address], [place] [address] Aug, [facility] [address] [id number] [address] [place] [address], [place] [address] Aug, [facility] [address] [id number] [address] [place] [address], [place] [address] Jul, [facility] [address] [id number] [address] [place] [address], [place] [address] Jul, [facility] [address] [id number] [address] [place] [address], [place] [address] Jul, [facility] [address] [id number] [address] [place] [address], [place] [id number] Jul, [facility] [address] [id number] [address] [place] [address], [place] [id number] Jul, [facility] [address] [id number] [address] [place] [address], [place] [address] Jul, [facility] [address] [id number] [address] [place] [address], [place] [id number] Jul, [facility] [address] [id number] [address] [place] [address], [place] [id number] Jul, [facility] [address] [id number] [address] [place] [address], [place] [id number] Jul, [facility] [address] [id number] [address] [place] [address], [place] [address] Jul, [facility] [address] [id number] [address] [place] [id number] Jun, [facility] [address] [id number] [address] [place] [address], [place] [id number] Jun, [facility] [address] [id number] [address] [place] [id number] Jun, [facility] [address] [id number] [address] [place] [id number] Jun, [facility] [address] [id number] [address] [place] [id number] Jun, [facility] [address] [id number] [address] [place] [address], [place] [id number] Jun, [facility] [address] [id number] [address] [place] [id number] Jun, [facility] [address] [id number] [address] [place] [id number] Jun, [facility] [address] [id number] [address] [place] [address], [place] [id number] Jun, [facility] [address] [id number] [address] [place] [address], [place] [id number] Jun, [facility] [address] [id number] [address] [place] [address], [place] [id number] 29 May, 2013 [facility] [address] [id number] [address] [place] [address], [place] [id number] 29 Sep, 2013 [facility] [address] [id number] [address] [place] [address], [place] [id number] 26 Sep, 2013 [facility] [address] [id number] [address] [place] [address], [place] [id number] 26 May, 2013 [facility] [address] [id number] [address] [place] [address], [place] [id number] 17 May, 2013 [facility] [address] [id number] [address] [place] [address], [place] [id number] 17 May, 2013 [facility] [address] [id number] [address] [place] [address], [place] [id number] 15 May, 2013 [facility] [address] [id number] [address] [place] [address], [place] [id number] 15 May, 2013 [facility] [address] [id number] [address] [place] [address], [place] [id number] 15 May, 2013 [facility] [address] [id number] [address] [place] [address], [place] [id number] 15 May, 2013 [facility] [address] [id number] [address] [place] [address], [place] [id number] 10 Sep, 2013 [facility] [address] [id number] [address] [place] [address], [place] [id number] 10 May, 2013 [facility] [address] [id number] [address] [place] [address], [place] [id number] 09 Sep, 2013 [facility] [address] [id number] [address] [place] [address], [place] [address] May, [facility] [address] [id number] [address] [place] [address], [place] [address] May, [facility] [address] [id number] [address] [place] [address], [place] [address] May, [facility] [address] [id number] [address] [place] [address], [place] [id number] Apr, [facility] [address] [id number] [address] [place] [address], [place] [address] Apr, [facility] [address] [id number] [address] [place] [address], [place] [id number] Apr, [facility] [address] [id number] [address] [place] [address], [place] [address] Apr, [facility] [address] [id number] [address] [place] [address], [place] [id number] Apr, [facility] [address] [id number] [address] [place] [address], [place] [address] Apr, [facility] [address] [id number] [address] [place] [address], [place] [address] Apr, [facility] [address] [id number] [address] [place] [address], [place] [address] Apr, [facility] [address] [id number] [address] [place] [address], [place] [address] Apr, [facility] [address] [id number] [address] [place] [address], [place] [id number] Apr, [facility] [address] [id number] [address] [place] [address], [place] [address] Apr, [facility] [address] [id number] [address] [place] [address], [place] [id number] Apr, [facility] [facility] [address] [id number] [address] [place] [address], [place] [address] Apr, [facility] [address] [id number] [address] [place] [address], [place] [address] Apr, [facility] [address] [id number] [address] [place] [address], [place] [address] Apr, [facility] [address] [id number] [address] [place] [address], [place] [address] Mar, [facility] [address] [id number] [address] [place] [address], [place] [address] Mar, [facility] [address] [id number] [address] [place] [address], [place] [address] Mar, [facility] [address] [id number] [address] [place] [address], [place] [address] Mar, [facility] [address] [id number] [address] [place] [address], [place] [address] Mar, [facility] [address] [id number] [address] [place] [address], [place] [address] Mar, [facility] [address] [id number] [address] [place] [address], [place] [address] Mar, [facility] [address] [id number] [address] [place] [address], [place] [address] Mar, [facility] [address] [id number] [address] [place] [address], [place] [address] Mar, [facility] [address] [id number] [address] [place] [address], [place] [address] Mar, [facility] [address] [id number] [address] [place] [address], [place] [address] Mar, [facility] [address] [id number] [address] [place] [address], [place] [address] Mar, [facility] [address] [id number] [address] [place] [address], [place] [address] Mar, [facility] [address] [id number] [address] [place] [address], [place] [address] Mar, [facility] [address] [id number] [facility] [address] Mar, 2013 [facility] [address] [id number] [facility] [address] Mar, [facility] [address] [id number] [facility] [address] Mar, [facility] [address] [id number] [facility] [address] Mar, [facility] [address] [id number] [facility] [address] Feb, [facility] [address] [id number] [address] [place] [address], [place] [address] Feb, [facility] [address] [id number] [address] [place] [address], [place] [address] Feb, [facility] [address] [id number] [address] [place] [address], [place] [address] Feb, [facility] [address] [id number] [address] [place] [address], [place] [address] Feb, [facility] [address] [id number] [address] [place] [address], [place] [address] Feb, [facility] [address] [id number] [address] [place] [address], [place] [address] Feb, [facility] [address] [id number] [address] [place] [address], [place] [address] Feb, [facility] [address] [id number] [address] [place] [address], [place] [address] Feb, [facility] [address] [id number] [address] [place] [address], [place] [address] Feb, [facility] [address] [id number] [address] [place] [address], [place] [address] Feb, [facility] [address] [id number] [address] [place] [address], [place] [address] Feb, [facility] [address] [id number] [facility] [address] Feb, [facility] [address] [id number] [facility] [address] Feb, [facility] [address] [id number] [facility] [address] January, [facility] [address] [id number] [address] [place] [address], [place] [address] January, [facility] [address] [id number] [facility] [address] January, [facility] [address] [id number] [address] [place] [address], [place] [address] January, [facility] [address] [id number] [address] [place] [address], [place] [address] January, [facility] [address] [id number] [address] [place] [address], [place] [address] January, [facility] [address] [id number] [address] [place] [address], [place] [address] January, [facility] [address] [id number] [address] [place] [address], [place] [address] January, [facility] [address] [id number] [address] [place] [address], [place] [address] January, [facility] [address] [id number] [address] [place] [address], [place] [address] January, [facility] [address] [id number] [address] [place] [address], [place] [address] January, [facility] [address] [id number] [address] [place] [address], [place] [address] January, [facility] [address] [id number] [address] [place] [address], [place] [address] January, [facility] [address] [id number] [address] [place] [address], [place] [address] January, [facility] [address] [id number] [facility] [address] Dec, [facility] [address] [id number] [address] [place] [address], [place] [address] Dec, [facility] [address] [id number] [address] [place] [address], [place] [address] Dec, [facility] [address] [id number] [address] [place] [address], [place] [address] Dec, [facility] [address] [id number] [address] [place] [address], [place] [address] Dec, [facility] [address] [id number] [address] [place] [address], [place] [address] Dec, [facility] [address] [id number] [address] [place] [address], [place] [address] Dec, [facility] [address] [id number] [address] [place] [address], [place] [address] Dec, [facility] [address] [id number] [address] [place] [address], [place] [address] Dec, [facility] [address] [id number] [address] [place] [address], [place] [address] Dec, [facility] [address] [id number] [address] [place] [address], [place] [address] Nov, [facility] [address] [id number] [address] [place] [address], [place] [address] Nov, [facility] [address] [id number] [address] [place] [address], [place] [address] Nov, [facility] [address] [id number] [address] [place] [address], [place] [address] Nov, [facility] [address] [id number] [address] [place] [address], [place] [address] Nov, [facility] [address] [id number] [facility] [address] 08 Nov, 2013 [facility] [address] [id number] [address] [place] [address], [place] [address] Nov, [facility] [address] [id number] [facility] [address] Nov, [facility] [address] [id number] [address] [place] [address], [place] [address] Nov, [facility] [address] [id number] [address] [place] [address], [place] [address] Nov, [facility] [address] [id number] [address] [place] [address], [place] [address] Oct, [facility] [address] [id number] [address] [place] [address], [place] [address] Oct, [facility] [address] [id number] [address] [place] [address], [place] [address] Oct, [facility] [address] [id number] [address] [place] [address], [place] [address] Oct, [facility] [address] [id number] [address] [place] [address], [place] [address] Oct, [facility] [address] [id number] [address] [place] [address], [place] [address] Oct, [facility] [address] [id number] [address] [place] [address], [place] [address] 14 Oct, 2013 [facility] [address] [id number] [address] [place] [address], [place] [address] Oct, [facility] [address] [id number] [address] [place] [address], [place] [address] Oct, [facility] [address] [id number] [address] [place] [address], [place] [address] Oct, [facility] [address] [id number] [address] [place] [address], [place] [address] 04 Oct, 2013 [facility] [address] [id number] [address] [place] [address], [place] [address] Oct, [facility] [address] [id number] [address] [place] [address], [place] [address] Oct, [facility] [address] [id number] [address] [place] [address], [place] [address] Oct, [facility] [address] [id number] [address] [place] [address], [place] [address] Sep, [facility] [address] [id number] [address] [place] [address], [place] [address] Sep, [facility] [address] [id number] [address] [place] [address], [place] [address] Sep, [facility] [address] [id number] [address] [place] [address], [place] [address] Sep, [facility] [address] [id number] [address] [place] [address], [place] [address] Sep, [facility] [address] [id number] [address] [place] [address], [place] [address] Sep, [facility] [address] [id number] [address] [place] [address], [place] [address] Sep, [facility] [address] [id number] [address] [place] [address], [place] [address] Sep, [facility] [address] [id number] [address] [place] [address], [place] [address] Sep, [facility] [address] [id number] [address] [place] [address], [place] [address] Sep, [facility] [address] [id number] [address] [place] [address], [place] [address] Aug, [facility] [address] [id number] [address] [place] [address], [place] [address] Aug, [facility] [address] [id number] [address] [place] [address], [place] [address] Jul, [facility] [address] [id number] [address] [place] [address], [place] [address] Jul, [facility] [address] [id number] [address] [place] [address], [place] [address] Jul, [facility] [address] [id number] [address] [place] [address], [place] [address] Jul, [facility] [address] [id number] [address] [place] [address], [place] [address] Jul, [facility] [address] [id number] [address] [place] [address], [place] [address] Jul, [facility] [address] [id number] [address] [place] [address], [place] [address] Jul, [facility] [address] [id number] [address] [place] [id number] Jul, [facility] [address] [id number] [address] [place] [address], [place] [address] Jul, [facility] [address] [id number] [address] [place] [id number] Jul, [facility] [address] [id number] [address] [place] [address] Jul, [facility] [address] [id number] [address] [place] [id number] Jul, [facility] [address] [id number] [address] [place] [address], [place] [address] Jul, [facility] [address] [id number] [address] [place] [id number] Jul, [facility] [address] [id number] [address] [place] [address] Jul, [facility] [address] [id number] [address] [place] [id number] Jul, [facility] [address] [id number] [address] [place] [address], [place] [address] Jul, 2012 [facility] [address] [id number] [address] [place] [id number] Jul, [facility] [address] [id number] [address] [place] [address], [place] [address] Jul, [facility] [address] [id number] [address] [place] [address] Jun, 2012 [facility] [address] [id number] [address] [place] [address], [place] [address] Jun, [facility] [address] [id number] [address] [place] [address], [place] [address] Jun, [facility] [address] [id number] [address] [place] [address] Jun, 2012 [facility] [address] [id number] [address] [place] [id number] Jun, [facility] [address] [id number] [address] [place] [id number] Jun, [facility] [address] [id number] [address] [place] [address] Jun, [facility] [address] [id number] [address] [place] [id number] Jun, [facility] [address] [id number] [address] [place] [id number] Jun, [facility] [address] [id number] [address] [place] [address] Jun, [facility] [address] [id number] [address] [place] [address] Jun, [facility] [address] [id number] [address] [place] [id number] May, [facility] [address] [id number] [facility] [address] 25 May, 2012 [facility] [address] [id number] [facility] [address] 19 May, 2012 [facility] [address] [id number] [facility] [address] 17 May, 2012 [facility] [address] [id number] [address] [place] [address], [place] [address] 11 May, 2012 [facility] [address] [id number] [address] [place] [address], [place] [address] 10 May, 2012 [facility] [address] [id number] [address] [place] [address], [place] [address] 09 May, 2013 [facility] [address] [id number] [address] [place] [address], [place] [address] 05 May, 2013 [facility] [address] [id number] [address] [place] [address], [place] [address] Apr, [facility] [address] [id number] [address] [place] [address], [place] [address] Apr, [facility] [address] [id number] [address] [place] [address], [place] [address] Apr, [facility] [address] [id number] [address] [place] [address], [place] [address] Apr, [facility] [address] [id number] [address] [place] [address], [place] [address] Apr, [facility] [address] [id number] [address] [place] [address], [place] [address] Mar, [facility] [address] [id number] [address] [place] [address], [place] [address] Mar, [facility] [address] [id number] [address] [place] [address], [place] [address] Mar, [facility] [address] [id number] [address] [place] [address], [place] [address] Mar, [facility] [address] [id number] [facility] [address] Mar, [facility] [address] [id number] [address] [place] [address], [place] [address] Mar, [facility] [address] [id number] [address] [place] [address], [place] [address] Mar, [facility] [address] [id number] [address] [place] [address], [place] [address] Mar, [facility] [address] [id number] [address] [place] [address], [place] [address] Feb, [facility] [address] [id number] [address] [place] [address], [place] [address] Feb, [facility] [address] [id number] [address] [place] [address], [place] [address] January, [facility] [address] [id number] [address] [place] [address], [place] [address] January, [facility] [address] [id number] [address] [place] [address], [place] [address] Dec, [facility] [address] [id number] [address] [place] [address], [place] [address] Dec, [facility] [address] [id number] [address] [place] [address], [place] [address] Nov, [facility] [address] [id number] [address] [place] [address], [place] [address] Nov, [facility] [address] [id number] [address] [place] [address], [place] [address] Nov, [facility] [address] [id number] [address] [place] [address], [place] [address] Nov, [facility] [address] [id number] [address] [place] [address], [place] [address] Oct, [facility] [address] [id number] [address] [place] [address], [place] [address] 26 Oct, 2012 [facility] [address] [id number] [address] [place] [address], [place] [address] Oct, [facility] [address] [id number] [address] [place] [address], [place] [address] 26 Oct, 2012 [facility] [address] [id number] [address] [place] [address], [place] [address] 16 Oct, 2012 [facility] [address] [id number] [address] [place] [address], [place] [address] 14 Oct, 2012 [facility] [address] [id number] [address] [place] [address], [place] [address] 08 Oct, 2012 [facility] [address] [id number] [address] [place] [address], [place] [address] 07 Oct, 2012 [facility] [address] [id number] [address] [place] [address], [place] [id number] 03 Oct, 2012 [facility] [address] [id number] [address] [place] [address], [place] [id number] 30 Sep, 2012 [facility] [address] [id number] [address] [place] [address], [place] [id number] Sep, [facility] [address] [id number] [address] [place] [address], [place] [id number] Sep, [facility] [address] [id number] [address] [place] [address], [place] [id number] Sep, [facility] [address] [id number] [address] [place] [address], [place] [id number] 17 Sep, 2012 [facility] [address] [id number] [address] [place] [address], [place] [id number] 10 Sep, 2012 [facility] [address] [id number] [address] [place] [address], [place] [id number] 09 Sep, 2012 [facility] [address] [id number] [address] [place] [address] [address] Sep, [facility] [address] [id number] [address] [place] [address], [place] [id number] Aug, [facility] [address] [id number] [address] [place] [address], [place] [id number] Aug, [facility] [address] [id number] [address] [place] [address], [place] [id number] Aug, [facility] [address] [id number] [address] [place] [address], [place] [id number] Aug, [facility] [address] [id number] [address] [place] [address], [place] [id number] Aug, [facility] [address] [id number] [address] [place] [address], [place] [id number] Aug, [facility] [address] [id number] [address] [place] [address], [place] [address] Aug, [facility] [address] [id number] [address] [place] [address], [place] [id number] Aug, [facility] [address] [id number] [address] [place] [address], [place] [address] Jul, [facility] [address] [id number] [address] [place] [address], [place] [id number] Jul, [facility] [address] [id number] [address] [place] [address], [place] [id number] Jul, [facility] [address] [id number] [address] [place] [address], [place] [id number] Jul, [facility] [address] [id number] [address] [place] [address], [place] [id number] Jul, [facility] [address] [id number] [address] [place] [address], [place] [address] Jul, [facility] [address] [id number] [address] [place] [address], [place] [address] Jun, [facility] [address] [id number] [address] [place] [address], [place] [id number] 25 Jun, 2012 [facility] [address] [id number] [address] [place] [address], [place] [id number] Jun, [facility] [address] [id number] [address] [place] [address], [place] [id number] Jun, [facility] [address] [id number] [address] [place] [address], [place] [id number] Jun, [facility] [address] [id number] [address] [place] [address], [place] [address] Jun, [facility] [address] [id number] [address] [place] [address], [place] [id number] 19 Jun, 2012 [facility] [address] [id number] [address] [place] [address], [place] [id number] 10 Jun, 2012 [facility] [address] [id number] [address] [place] [address], [place] [id number] 10 Jun, 2012 [facility] [address] [id number] [address] [place] [address], [place] [id number] 26 May, 2012 [facility] [address] [id number] [address] [place] [address], [place] [id number] 24 May, 2012 [facility] [address] [id number] [address] [place] [address], [place] [id number] 18 May, 2012 [facility] [address] [id number] [address] [place] [address], [place] [id number] 30 Apr, 2012 [facility] [address] [id number] [address] [place] [address], [place] [id number] 29 Apr, 2012 [facility] [address] [id number] [address] [place] [address], [place] [id number] 18 Apr, 2012 [facility] [address] [id number] [address] [place] [address], [place] [id number] 14 Apr, 2012 [facility] [address] [id number] [address] [place] [address], [place] [address] Apr, [facility] [address] [id number] [address] [place] [address], [place] [address] Apr, [facility] [address] [id number] [address] [place] [address], [place] [address] Mar, [facility] [address] [id number] [address] [place] [address], [place] [address] Mar, [facility] [address] [id number] [address] [place] [address], [place] [address] Mar, [facility] [address] [id number] [address] [place] [address], [place] [id number] Mar, [facility] [address] [id number] [address] [place] [address], [place] [id number] Feb, [facility] [address] [id number] [address] [place] [address], [place] [id number] Feb, [facility] [address] [id number] [address] [place] [address], [place] [id number] Feb, [facility] [address] [address] [id number] [address] [place] [address], [place] [address] Feb, [facility] [address] [id number] [address] [place] [address], [place] [address] Feb, [facility] [address] [id number] [address] [place] [address], [place] [address] January, [facility] [address] [id number] [address] [place] [address], [place] [address] January, [facility] [address] [id number] [address] [place] [address], [place] [address] January, [facility] [address] [id number] [address] [place] [address], [place] [address] January, [facility] [address] [id number] [address] [place] [address], [place] [address] January, [facility] [address] [id number] [address] [place] [address], [place] [address] January, [facility] [address] [id number] [address] [place] [address], [place] [address] Dec, [facility] [address] [id number] [address] [place] [address], [place] [address] 24 Dec, 2011 [facility] [address] [id number] [address] [place] [address], [place] [address] 17 Dec, 2011 [facility] [address] [id number] [address] [place] [address], [place] [address] Dec, [facility] [address] [id number] [address] [place] [address], [place] [address] Dec, [facility] [address] [id number] [address] [place] [address], [place] [address] 27 Nov, 2011 [facility] [address] [id number] [address] [place] [address], [place] [address] 14 Nov, 2011 [facility] [address] [id number] [address] [place] [address], [place] [address] Nov, [facility] [address] [id number] [address] [place] [address], [place] [address] 07 Nov, 2011 [facility] [address] [id number] [address] [place] [address], [place] [address] 29 Oct, 2011 [facility] [address] [id number] [address] [place] [address], [place] [address] Oct, [facility] [address] [id number] [address] [place] [address], [place] [address] 24 Oct, 2011 [facility] [address] [id number] [address] [place] [address], [place] [address] 13 Oct, 2011 [facility] [address] [id number] [address] [place] [address], [place] [address] 08 Oct, 2011 [facility] [address] [id number] [address] [place] [address], [place] [address] Sep, [facility] [address] [id number] [address] [place] [address], [place] [address] Sep, [facility] [address] [id number] [address] [place] [address], [place] [address] Sep, [facility] [address] [id number] [address] [place] [address], [place] [address] Sep, [facility] [address] [id number] [address] [place] [address], [place] [address] Sep, [facility] [address] [id number] [address] [place] [address], [place] [address] Sep, [facility] [address] [id number] [address] [place] [address], [place] [address] Aug, [facility] [address] [id number] [address] [place] [address], [place] [address] Aug, [facility] [address] [id number] [address] [place] [address], [place] [address] Aug, [facility] [address] [id number] [address] [place] [address], [place] [address] Jul, [facility] [address] [id number] [address] [place] [address], [place] [address] Jul, [facility] [address] [id number] [address] [place] [address], [place] [address] Jul, [facility] [address] [id number] [address] [place] [address], [place] [address] Jul, [facility] [address] [id number] [address] [place] [address], [place] [address] Jun, [facility] [address] [id number] [address] [place] [address], [place] [address] Jun, [facility] [address] [id number] [address] [place] [address], [place] [address] Jun, [facility] [address] [id number] [address] [place] [address], [place] [address] 10 Jun, 2011 [facility] [address] [id number] [address] [place] [address], [place] [address] 10 Jun, 2011 [facility] [address] [id number] [address] [place] [address], [place] [address] 10 Jun, 2011 [facility] [address] [id number] [address] [place] [address], [place] [address] 11 Mar, 2011 [facility] [address] [id number] [address] [place] [address], [place] [address] 18 Dec, 2010 [facility] [address] [id number] [address] [place] [address], [place] [address] 11 Dec, 2010 [facility] [address] [id number] [address] [place] [address], [place] [address] 18 Nov, 2010 [facility] [address] [id number] [address] [place] [address], [place] [address] 16 Nov, 2010 [facility] [address] [id number] [address] [place] [address], [place] [address] 10 Sep, 2010 [facility] [address] [id number] [address] [place] [address], [place] [address] 31 Aug, 2010 [facility] [address] [id number] [address] [place] [address], [place] [address] 29 Aug, 2010 [facility] [address] [id number] [address] [place] [address], [place] [address] 29 Aug, 2010 [facility] [address] [id number] [address] [place] [address], [place] [address] 29 Aug, 2010 [facility] [address] [id number] [address] [place] [address], [place] [address] 27 Aug, 2010 [facility] [address] [id number] [address] [place] [address], [place] [address] 14 Aug, 2010 [facility] [address] [id number] [address] [place] [address], [place] [address] 08 Aug, 2010 [facility] [address] [id number] [address] [place] [address], [place] [address] 08 Aug, 2010 [facility] [address] [id number] [address] [place] [address], [place] [address] 07 Aug, 2010 [facility] [address] [id number] [address] [place] [address], [place] [address] Aug, [facility] [address] [id number] [address] [place] [address], [place] [address] Aug, [facility] [address] [id number] [address] [place] [address], [place] [address] Aug, [facility] [address] [id number] [address] [place] [address], [place] [address] Jul, [facility] [address] [id number] [address] [place] [address], [place] [address] Jul, [facility] [address] [id number] [address] [place] [address], [place] [address] Jul, [facility] [address] [id number] [address] [place] [address], [place] [address] Jul, [facility] [address] [id number] [address] [place] [address], [place] [address] Jul, [facility] [address] [id number] [address] [place] [address], [place] [address] Jul, [facility] [address] [id number] [address] [place] [address], [place] [address] 24 Jun, 2010 [facility] [address] [id number] [address] [place] [address], [place] [address] Jun, [facility] [address] [id number] [address] [place] [address], [place] [address] Jun, [facility] [address] [id number] [address] [place] [address], [place] [address] Jun, [facility] [address] [id number] [address] [place] [address], [place] [address] 16 Apr, 2010 [facility] [address] [id number] [address] [place] [address], [place] [address] 20 Mar, 2010 [facility] [address] [id number] [address] [place] [address], [place] [address] 17 Feb, 2010 [facility] [address] [id number] [address] [place] [address], [place] [address] January, [facility] [address] [id number] [address] [place] [address], [place] [address] 15 Dec, 2009 [facility] [address] [id number] [address] [place] [address], [place] [address] Nov, [facility] [address] [id number] [address] [place] [address], [place] [address] Aug, [facility] [address] [id number] [address] [place] [address], [place] [address] Aug, [facility] [address] [id number] [address] [place] [address], [place] [address] Aug, [facility] [address] [id number] [address] [place] [address], [place] [address] Jul, [facility] [address] [id number] [address] [place] [id number] Jul, [facility] [address] [id number] [address] [place] [id number] Jul, [facility] [address] [id number] [address] [place] [id number] 30 Jun, 2009 [facility] [address] [id number] [address] [place] [address], [place] [address] 29 Jun, 2009 [facility] [address] [id number] [address] [place] [address], [place] [address] Jun, [facility] [address] [id number] [address] [place] [id number] Jun, [facility] [address] [id number] [address] [place] [id number] Jun, [facility] [place] [address] [facility] [id number] [address] [place] [id number] Jun, [facility] [place] [address] [facility] [id number] [address] [place] [id number] Apr, [facility] [place] [address] [facility] [id number] [address] [place] [id number] Apr, [facility] [place] [address] [facility] [id number] [address] [place] [id number] Feb, [facility] [place] [address] [facility] [id number] [address] [place] [id number] January, [facility] [place] [address] [facility] [id number] [address] [place] [id number] Dec, IMMUNIZATIONS No Known Immunizations SOCIAL HISTORY Never Assessed REASON FOR VISIT PLAN OF CARE VITAL SIGNS MEDICATIONS Unknown Medications RESULTS No Results PROCEDURES Procedure Date Ordered Result Body Site PSYTX PT&/FAMILY 45 MINUTES Oct 01, 2014 INSTRUCTIONS MEDICATIONS ADMINISTERED No Known Medications [...] Hospitalization History [facility]'s Hospitalization History hyperkalemia 10/2017 Hospitalization History fluid in lung
--- OUTSIDE RECORDS SUMMARY | 2020-03-01 17:55 | XMS REPORT ---
Author Author Michele WASHBURN Organization [facility] Address [address] [place] [address] Care Team Providers Care Data Governance Analyst Name Role Phone NOEMI WASHBURN Unavailable PROBLEMS Type Condition ICD9-CM Code LRZ90-KR Code Onset Dates Condition S tatus SNOMED Code Problem Leukocytosis D72.829 Active 7236906 06 Problem Bipolar I disorder, most recent episode (or curr ent) mixed, moderate F31.62 Active 99290267 Problem Reactive airway disease J45.909 Active 631252456612 Problem Anxiety F41.9 Active 77025050 Problem Insomnia, unspecified type G47.00 Act sharon 359455059 Problem Essential hypertension I10 Active 72887406 Problem Morbid obesity E66.01 Active 77530 6002 Problem Skin cancer C44.90 Active 40942077 7 Problem DM neuro manif type II E11.49 Active 02732974 Problem Mild cognitive impairment G31.84 Acti ve 536796491 Problem Benign prostatic hyperplasia with lower urinary tract symptoms, unspecified morphology N40.1 Active 92426 6007 Problem Chronic pain G89.29 Active 9072595 1 Problem Diabetes E11.9 Active 73711942 Problem Retinal edema H35.81 Active 750515 6 Problem Anemia of chronic illness D63.8 Acti ve 420496602 Problem Falling R29.6 Active 298916379 Problem Pressure ulcer of other site, stage 3 L89.893 Active 645678995 Problem 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 Active 854950032 Problem Eye exam abnormal R93.8 Active 16 6265643 Problem Pure hypercholesterolemia E78.00 Acti ve 597525563 Problem Dysuria R30.0 Active 17127879 Problem Bipolar disorder, in partial remission, most rec ent episode depressed F31.75 Active 78022885 Problem Hypokalemia E87.6 Active 24465309 Problem Other iron deficiency anemia D50.8 A ctive 26268170 Problem Eustachian tube dysfunction, unspecified laterality H69.80 Active 63458437 Problem Primary osteoarthritis of right knee M17.11 Active 245689040313637 Problem Cough R05 Active 79560070 Problem Bipolar disorder F31.9 Active 137 63201 Problem Chronic diastolic (congestive) heart failure I50.3 2 Active 449361278 Problem Psychophysiological insomnia F51.04 A ctive 729276384 Problem Gastroesophageal reflux disease without esophagitis K21.9 Active 346265377 Problem Polyneuropathy associated with underlying disease G63 Active 519333421 Problem Other secondary acute gout, 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 0 Active 654502925 Problem Diabetic polyneuropathy associated with type 2 d iabetes mellitus E11.42 Active 11609424 Problem Chronic lymphocytic leukemia C91.10 A ctive 69732003 Problem Bilateral primary osteoarthritis of knee M17.0 Active 045511166 Problem Type 2 diabetes mellitus with diabetic neuropathy, uns pecified E11.40 Active 98716334 Problem residential (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 Z79.4 Active 613767744 Problem Lymphocytosis D72.820 Active 196706 09 Problem Mood disorder F39 Active 635510 05 Problem Bipolar I disorder, most recent episode depressed, moderat e F31.32 Active 222507147 ALLERGIES No Information ENCOUNTERS Encounter Location Date Diagnosis [facility] [address] [facility] [id number] [address] [place] [phone] Dec, [facility] [address] [facility] [id number] [address] [place] [phone] Dec, Chronic pain G89.29 [facility] [address] [facility] [id number] [address] [place] [phone] Dec, [facility] [address] [id number] [address] [place] [phone] Dec, [facility] [address] [facility] [id number] [address] [place] [phone] Dec, Gastroesophageal reflux dise ase without esophagitis K21.9 and Pure hypercholesterolemia E78.00 [facility] [address] [facility] [id number] [address] [place] [phone] Dec, Mood disorder F39 [facility] [address] [facility] [id number] [address] [place] [phone] 31 Nov, 2019 Other secondary acute gout, 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 [facility] [address] [facility] [id number] [address] [place] [phone] Nov, Gastroesophageal reflux dise ase without esophagitis K21.9 [facility] [address] [facility] [id number] [address] [place] [phone] Nov, Chronic pain G89.29 [facility] [address] [facility] [id number] [address] [place] [phone] Nov, Bipolar I disorder, most rec ent episode depressed, moderate F31.32 ; Anxiety F41.9 and Mild cognitive impairment G31.84 [place] [address] [facility] [id number] [address] [place] [phone] Nov, [place] [address] [facility] [id number] [address] [place] [phone] Nov, Syncope, unspecified syncope type R55 [place] [address] [facility] [id number] [address] [place] [phone] Nov, Mood disorder F39 [place] [address] [facility] [id number] [address] [place] [phone] Oct, Chronic pain G89.29 [facility] [address] [facility] [id number] [address] [place] [phone] Oct, [facility] [address] [facility] [id number] [address] [place] [phone] Oct, Mood disorder F39 [facility] [address] [facility] [id number] [address] [place] [phone] Oct, [place] [address] [facility] [id number] [address] [place] [phone] Oct, Bipolar disorder, in partial remission, most recent episode depressed F31.75 and Mild cognitive impairment G31.84 [place] [address] [facility] [id number] [address] [place] [phone] Oct, Mood disorder F39 [facility] [address] [id number] [address] [place] [phone] Sep, [facility] [address] [id number] [address] [place] [phone] Sep, Mood disorder F39 [facility] [address] [id number] [address] [place] [phone] Sep, Bipolar disorder, in partial remission, most recent episode depressed F31.75 and Mild cognitive impairment G31.84 [facility] [address] [id number] [address] [place] [phone] Sep, Mood disorder F39 [facility] [address] [id number] [address] [place] [phone] Sep, [facility] [address] [id number] [address] [place] [phone] Sep, Mood disorder F39 [facility] [address] [id number] [address] [place] [phone] Sep, [facility] [address] [id number] [address] [place] [phone] Aug, Mood disorder F39 [facility] [address] [id number] [address] [place] [phone] Aug, [facility] [address] [id number] [address] [place] [phone] Aug, [facility] [address] [id number] [address] [place] [phone] Aug, [facility] [address] [id number] [address] [place] [phone] Aug, [facility] [address] [id number] [address] [place] [phone] Aug, [facility] [address] [id number] [address] [place] [phone] Aug, [facility] [address] [id number] [address] [place] [phone] Aug, [facility] [address] [id number] [address] [place] [phone] Aug, Essential hypertension I10 [facility] [address] [id number] [address] [place] [phone] Aug, Bipolar disorder, in partial remission, most recent episode depressed F31.75 and Mild cognitive impairment G31.84 [facility] [address] [id number] [address] [place] [phone] Aug, Mood disorder F39 [facility] [address] [id number] [address] [place] [phone] Aug, [facility] [address] [id number] [address] [place] [phone] Aug, Bipolar disorder, in partial remission, most recent episode depressed F31.75 and Mild cognitive impairment G31.84 [facility] [address] [id number] [address] [place] [phone] Jul, Bipolar disorder, in partial remission, most recent episode depressed F31.75 and Mild cognitive impairment G31.84 [facility] [address] [id number] [address] [place] [phone] Jul, Psychophysiological insomnia F51.04 [facility] [address] [id number] [address] [place] [phone] Jul, [facility] [address] [id number] [address] [place] [phone] Jul, [facility] [address] [id number] [address] [place] [phone] Jul, [facility] [address] [id number] [address] [place] [phone] Jul, [facility] [address] [id number] [address] [place] [phone] Jul, [place] [address] [facility] [id number] [address] [place] [phone] Jul, [place] [address] [facility] [id number] [address] [place] [phone] Jul, Bipolar disorder, in partial remission, most recent episode depressed F31.75 and Mild cognitive impairment G31.84 [place] [address] [place] [id number] [address] [place] [phone] Jul, Chronic pain G89.29 ; Diabet es E11.9 ; Essential hypertension I10 ; Ill feeling R68.89 ; Local infection of the skin and subcutaneous tissue, unspecified L08.9 and Other injury of unspecified body region, initial encounter T14.8XXA [place] [address] [place] [id number] [address] [place] [phone] Jun, Bipolar disorder, in partial remission, most recent episode depressed F31.75 and Mild cognitive impairment G31.84 [place] [address] [facility] [id number] [address] [place] [phone] Jun, [place] [address] [facility] [id number] [address] [place] [phone] Jun, Bipolar disorder, in partial remission, most recent episode depressed F31.75 and Mild cognitive impairment G31.84 [place] [address] [place] [id number] [address] [place] [phone] Jun, Psychophysiological insomnia F51.04 [place] [address] [facility] [id number] [address] [place] [phone] Jun, Psychophysiological insomnia F51.04 ; Chronic pain G89.29 ; Bipolar I disorder, most recent episode (or current) mixed, moderate F31.62 ; 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 ; Polyneuropathy associated with underlying disease G63 ; Type 2 diabetes mellitus with diabetic neuropathy, unspecified E11.40 ; 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 and Hyperglycemia R73.[address] [id number] [address] [place] [phone] Jun, Bipolar disorder, in partial remission, most recent episode depressed F31.75 and Mild cognitive impairment G31.84 [facility] [address] [id number] [address] [place] [phone] Jun, [facility] [address] [facility] [id number] [address] [place] [phone] Jun, Bipolar disorder F31.9 [facility] [address] [facility] [id number] [address] [place] [phone] May, Bipolar disorder, in partial remission, most recent episode depressed F31.75 and Mild cognitive impairment G31.84 [facility] [address] [facility] [id number] [address] [place] [phone] May, [facility] [address] [facility] [id number] [address] [place] [phone] Apr, Chronic pain G89.29 and Bipo lar disorder F31.9 [facility] [address] [id number] [address] [place] [phone] Mar, Bipolar disorder F31.9 and C hronic pain G89.29 [facility] [address] [facility] [id number] [address] [place] [phone] Feb, Bipolar disorder F31.9 [facility] [address] [id number] [address] [place] [phone] Feb, Cellulitis of right upper ex tremity L03.113 and Skin abrasion T14.8XXA [facility] [address] [id number] [address] [place] [phone] Feb, Bipolar disorder, in partial remission, most recent episode depressed F31.75 and Mild cognitive impairment G31.84 [facility] [address] [id number] [address] [place] [phone] Feb, Chronic pain G89.29 [facility] [address] [facility] [id number] [address] [place] [phone] Feb, Bipolar disorder, in partial remission, most recent episode depressed F31.75 and Mild cognitive impairment G31.84 [facility] [address] [id number] [address] [place] [phone] January, Bipolar disorder, in partial remission, most recent episode depressed F31.75 and Mild cognitive impairment G31.84 [facility] [address] [id number] [address] [place] [phone] January, Chronic pain G89.29 and Bipo lar disorder F31.9 [facility] [address] [id number] [address] [place] [phone] January, Bipolar disorder, in partial remission, most recent episode depressed F31.75 and Mild cognitive impairment G31.84 [facility] [address] [id number] [address] [place] [phone] Dec, [facility] [address] [id number] [address] [place] [phone] Dec, Chronic pain G89.29 and Bipo lar disorder F31.9 [facility] [address] [id number] [address] [place] [phone] Dec, Edema of both lower extremit ies R60.0 [facility] [address] [id number] [address] [place] [phone] Dec, Bipolar disorder F31.9 [facility] [address] [id number] [address] [place] [phone] Dec, Bipolar disorder, in partial remission, most recent episode depressed F31.75 and Mild cognitive impairment G31.84 [facility] [address] [id number] [address] [place] [phone] Nov, [facility] [address] [id number] [address] [place] [phone] Nov, Chronic pain G89.29 [facility] [address] [id number] [address] [place] [phone] Nov, Bipolar disorder, in partial remission, most recent episode depressed F31.75 and Mild cognitive impairment G31.84 [place] [address] [place] [id number] [address] [place] [phone] Nov, Bipolar disorder F31.9 [place] [address] [place] [id number] [address] [place] [phone] 04 Nov, 2018 [facility] ; Polyneuropathy [...] unspecified morphology N40.1 and Essential hypertension I10 [place] [id number] [place] [phone] Oct, Chronic pain G89.29 [place] [address] [place] [id number] [address] [place] [phone] 18 Oct, 2018 Diabetes E11.9 [place] [address] [place] [id number] [address] [place] [phone] Oct, Bipolar I disorder, most rec ent episode (or current) mixed, moderate F31.62 and Mild cognitive impairment G31.84 [place] [address] [place] [id number] [address] [place] [phone] Oct, Bipolar I disorder, most rec ent episode (or current) mixed, moderate F31.62 and Mild cognitive impairment G31.84 [place] [address] [place] [id number] [address] [place] [phone] Sep, Bipolar I disorder, most rec ent episode (or current) mixed, moderate F31.62 and Mild cognitive impairment G31.84 [place] [address] [place] [id number] [address] [place] [phone] Sep, [facility] [address] [place] [id number] [address] [place] [phone] Sep, Diabetes E11.9 ; Hypoxia R09 .02 ; Hyperglycemia R73.9 ; Therapeutic drug monitoring Z51.81 ; BMI 50.0-59.9, adult Z68.43 and Skin cancer C44.90 [place] [address] [place] [id number] [place] [phone] Sep, Chronic pain G89.29 [place] [address] [place] [id number] [place] [phone] Sep, Bipolar I disorder, most rec ent episode (or current) mixed, moderate F31.62 [place] [address] [place] [id number] [place] [phone] Sep, [place] [address] [place] [id number] [place] [phone] Sep, [place] [address] [place] [id number] [address] [place] [phone] Aug, Chronic pain G89.29 [place] [address] [place] [id number] [address] [place] [phone] Aug, Bipolar I disorder, most rec ent episode (or current) mixed, moderate F31.62 [place] [address] [place] [id number] [address] [place] [phone] Aug, Bipolar I disorder, most rec ent episode (or current) mixed, moderate F31.62 and Mild cognitive impairment G31.84 [place] [address] [place] [id number] [address] [place] [phone] Jul, [place] [address] [place] [id number] [address] [place] [phone] Jul, Chronic pain G89.29 [facility] [address] [place] [id number] [address] [place] [phone] Jul, Bipolar I disorder, most rec ent episode (or current) mixed, moderate F31.62 and Mild cognitive impairment G31.84 [place] [address] [facility] [id number] [address] [place] [phone] Jul, Bipolar I disorder, most rec ent episode (or current) mixed, moderate F31.62 and MCI (mild cognitive impairment) G31.84 [place] [id number] [facility] [id number] [address] [place] [phone] Jul, [facility] [address] [facility] [id number] [address] [place] [phone] Jul, [place] [address] [place] [id number] [place] [phone] Jul, Bipolar I disorder, most rec ent episode (or current) mixed, moderate F31.62 [place] [id number] [place] [id number] [address] [place] [phone] Jul, Chronic pain G89.29 [place] [address] [facility] [id number] [address] [place] [phone] Jun, Bipolar I disorder, most rec ent episode (or current) mixed, moderate F31.62 [place] [address] [place] [id number] [address] [place] [phone] Jun, Pre-procedure lab exam Z01.8 12 [place] [address] [place] [id number] [address] [place] [phone] Jun, [facility] [address] [id number] [place] [address] [id number] Jun, [place] [id number] [facility] [id number] [address] [place] [phone] Jun, [place] [address] [place] [id number] [address] [place] [phone] Jun, Forgetfulness R68.89 ; Pre-s yncope R55 ; Localized edema R60.0 ; Other iron deficiency anemia D50.8 and BMI 50.0-59.9, adult Z68.43 [facility] [address] [facility] [id number] [address] [place] [phone] Jun, Chronic pain G89.29 [facility] [address] [facility] [id number] [address] [place] [phone] Jun, Chronic pain G89.29 [facility] [address] [facility] [id number] [address] [place] [phone] Jun, Bipolar I disorder, most rec ent episode (or current) mixed, moderate F31.62 [facility] [address] [facility] [id number] [address] [place] [phone] May, Chronic pain G89.29 [facility] [address] [facility] [id number] [address] [place] [phone] Apr, [place] [address] [facility] [id number] [address] [place] [phone] Apr, Chronic pain G89.29 [facility] [address] [facility] [id number] [address] [place] [phone] Apr, Primary osteoarthritis of ri ght knee M17.11 [facility] [address] [facility] [id number] [address] [place] [phone] Mar, [facility] [address] [facility] [id number] [address] [place] [phone] Mar, BMI 50.0-59.9, adult Z68.43 and Bipolar disorder, in partial remission, most recent episode depressed F31.75 [facility] [address] [facility] [id number] [address] [place] [phone] Mar, Diabetes E11.9 ; Pure hyperc holesterolemia E78.00 ; Essential hypertension I10 ; Nausea with vomiting, unspecified R11.2 and Headache, unspecified headache type R51 [facility] [facility] [address] [facility] [id number] [address] [place] [phone] Mar, Bipolar I disorder, most rec ent episode (or current) mixed, moderate F31.62 [facility] [address] [id number] [address] [place] [phone] 16 Mar, 2018 Bipolar I disorder, most rec ent episode (or current) mixed, moderate F31.62 [facility] [address] [facility] [id number] [address] [place] [phone] Mar, Chronic pain G89.29 [facility] [address] [facility] [id number] [address] [place] [phone] Mar, Bipolar I disorder, most rec ent episode (or current) mixed, moderate F31.62 [facility] [address] [facility] [id number] [address] [place] [phone] Feb, Bipolar I disorder, most rec ent episode (or current) mixed, moderate F31.62 [facility] [address] [facility] [id number] [address] [place] [phone] Feb, Chronic pain G89.29 [facility] [address] [facility] [id number] [address] [place] [phone] Feb, Decubitus ulcer of right josselin t, stage 3 L89.893 and BMI 50.0-59.9, adult Z68.43 [facility] [address] [facility] [id number] [address] [place] [phone] Feb, Bipolar I disorder, most rec ent episode (or current) mixed, moderate F31.62 [facility] [address] [facility] [id number] [address] [place] [phone] Feb, [facility] [address] [facility] [id number] [address] [place] [phone] January, [facility] [address] [facility] [id number] [address] [place] [phone] January, Chronic pain G89.29 [facility] [address] [facility] [id number] [address] [place] [phone] January, Bipolar I disorder, most rec ent episode (or current) mixed, moderate F31.62 [facility] [place] [address] [place] [id number] [address] [place] [phone] January, Bipolar I disorder, most rec ent episode (or current) mixed, moderate F31.62 [place] [address] [place] [id number] [address] [place] [phone] Dec, Bipolar I disorder, most rec ent episode (or current) mixed, moderate F31.62 and BMI 50.0-59.9, adult Z68.43 [place] [address] [address] Dec, Bipolar I disorder, most rec ent episode (or current) mixed, moderate F31.62 [place] [address] [address] Dec, Chronic pain G89.29 [place] [address] [address] Dec, DM neuro manif type II E11.4 9 ; Right flank pain R10.9 ; residential 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 Z79.891 ; Encounter for medication monitoring Z51.81 and BMI 50.0-59.9, adult Z68.43 [place] [address] [address] Dec, Bipolar I disorder, most rec ent episode (or current) mixed, moderate F31.62 [place] [address] [place] [id number] [address] [place] [phone] Nov, Bipolar I disorder, most rec ent episode (or current) mixed, moderate F31.62 [place] [address] [place] [id number] [address] [place] [phone] Nov, Chronic pain G89.29 [place] [address] [place] [id number] [place] [phone] Nov, Bipolar I disorder, most rec ent episode (or current) mixed, moderate F31.62 [place] [address] [place] [id number] [place] [address] Nov, Hypokalemia E87.6 [place] [address] [place] [id number] [place] [phone] Nov, Bipolar I disorder, most rec ent episode (or current) mixed, moderate F31.62 [place] [address] [address] Oct, Chronic pain G89.29 [place] [address] [address] Oct, BMI 50.0-59.9, adult Z68.43 and Bipolar I disorder, most recent episode (or current) mixed, moderate F31.62 [place] [address] [address] Oct, Bipolar I disorder, most rec ent episode (or current) mixed, moderate F31.62 [place] [address] [address] Oct, [place] [address] [address] Oct, Hypokalemia E87.6 [place] [address] [place] [id number] [place] [phone] Oct, DM neuro manif type II E11.4 9 [place] [address] [address] Oct, Bipolar I disorder, most rec ent episode (or current) mixed, moderate F31.62 [place] [address] [address] Oct, Bipolar I disorder, most rec ent episode (or current) mixed, moderate F31.62 [place] [address] [place] [id number] [place] [phone] 14 Oct, 2017 Hyperkalemia E87.5 ; Falling R29.6 ; BMI 50.0-59.9, adult Z68.43 and Acute left ankle pain M25.572 [place] [id number] [place] [phone] 08 Oct, 2017 DM neuro manif type II E11.4 9 [place] [address] [place] [id number] [address] [place] [phone] Oct, [place] [address] [place] [id number] [place] [address] Sep, Chronic pain G89.29 [place] [address] [place] [id number] [address] [place] [phone] Sep, [place] [address] [place] [id number] [place] [address] Sep, Bilateral primary osteoarthr itis of knee M17.0 [place] [address] [address] Sep, Generalized edema R60.1 [place] [address] [address] 16 Sep, 2017 Bipolar I disorder, most rec ent episode (or current) mixed, moderate F31.62 [place] [address] [address] 15 Sep, 2017 Hypoxia R09.02 ; Other hyper volemia E87.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 ; Anemia of chronic illness D63.8 and BMI 50.0- 59.9, adult Z68.43 [place] [address] [address] Sep, [place] [address] [place] [id number] [place] [address] Sep, Bipolar I disorder, most rec ent episode (or current) mixed, moderate F31.62 [place] [address] [place] [address] Aug, Chronic pain G89.29 [facility] [address] [facility] [id number] [address] [place] [phone] Aug, Generalized edema R60.1 [facility] [address] [facility] [id number] [address] [place] [phone] Aug, [facility] [address] [facility] [id number] [address] [place] [phone] Aug, [facility] [address] [facility] [id number] [address] [place] [phone] 14 Aug, 2017 Bipolar I disorder, most rec ent episode (or current) mixed, moderate F31.62 [place] [id number] [place] [id number] [address] [place] [phone] 07 Aug, 2017 Bipolar I disorder, most rec ent episode (or current) mixed, moderate F31.62 [place] [address] [place] [id number] [address] [place] [phone] Aug, Chronic pain G89.29 [facility] [address] [facility] [id number] [address] [place] [phone] 30 Jul, 2017 Bipolar I disorder, most rec ent episode (or current) mixed, moderate F31.62 [facility] [address] [facility] [id number] [address] [place] [phone] Jul, Bipolar I disorder, most rec ent episode (or current) mixed, moderate F31.62 and BMI 60.0-69.9, adult Z68.44 [facility] [address] [facility] [id number] [address] [place] [phone] 16 Jul, 2017 Bipolar I disorder, most rec ent episode (or current) mixed, moderate F31.62 [facility] [address] [facility] [id number] [address] [place] [phone] 06 Jul, 2017 Chronic pain G89.29 [facility] [address] [place] [id number] [address] [place] [phone] Jul, Bipolar I disorder, most rec ent episode (or current) mixed, moderate F31.62 [facility] [address] [facility] [id number] [address] [place] [phone] Jun, Polyneuropathy associated wi th underlying disease G63 and Diabetes E11.9 [facility] [address] [facility] [id number] [address] [place] [phone] 16 Jun, 2017 Bipolar I disorder, most rec ent episode (or current) mixed, moderate F31.62 [facility] [address] [facility] [id number] [address] [place] [phone] Jun, Chronic pain G89.29 [facility] [address] [facility] [id number] [address] [place] [phone] May, Bipolar I disorder, most rec ent episode (or current) mixed, moderate F31.62 [facility] [address] [place] [id number] [address] [place] [phone] May, Bipolar I disorder, most rec ent episode (or current) mixed, moderate F31.62 [facility] [address] [facility] [id number] [address] [place] [phone] 20 May, 2017 Diabetic polyneuropathy asso ciated with type 2 diabetes mellitus E11.42 [facility] [address] [facility] [id number] [address] [place] [phone] 18 May, 2017 Bipolar I disorder, most rec ent episode (or current) mixed, moderate F31.62 [facility] [address] [facility] [id number] [address] [place] [phone] 13 May, 2017 Bipolar I disorder, most rec ent episode (or current) mixed, moderate F31.62 [facility] [address] [facility] [id number] [address] [place] [phone] May, Chronic pain G89.29 [facility] [address] [facility] [id number] [address] [place] [phone] Apr, Bipolar I disorder, most rec ent episode (or current) mixed, moderate F31.62 [facility] [address] [id number] [address] [place] [phone] Apr, [facility] [address] [id number] [address] [place] [phone] Apr, Chronic pain G89.29 and DM n euro manif type II E11.49 [facility] [address] [id number] [address] [place] [phone] Apr, [facility] [address] [id number] [address] [place] [phone] Apr, Bipolar I disorder, most rec ent episode (or current) mixed, moderate F31.62 [facility] [address] [facility] [id number] [address] [place] [phone] Apr, Chronic pain G89.29 [facility] [address] [facility] [id number] [address] [place] [phone] Apr, Iliotibial band syndrome, le ft M76.32 [facility] [address] [facility] [id number] [address] [place] [phone] Apr, Bipolar I disorder, most rec ent episode (or current) mixed, moderate F31.62 [facility] [address] [facility] [id number] [address] [place] [phone] Mar, Bipolar I disorder, most rec ent episode (or current) mixed, moderate F31.62 [facility] [address] [facility] [id number] [address] [place] [phone] Mar, Bipolar I disorder, most rec ent episode (or current) mixed, moderate F31.62 [facility] [address] [facility] [id number] [address] [place] [phone] Mar, [facility] [address] [facility] [id number] [address] [place] [phone] Mar, Bipolar I disorder, most rec ent episode (or current) mixed, moderate F31.62 [facility] [address] [facility] [id number] [address] [place] [phone] Mar, Chronic pain G89.29 [facility] [address] [facility] [id number] [address] [place] [phone] Mar, Bipolar I disorder, most rec ent episode (or current) mixed, moderate F31.62 [facility] [address] [facility] [id number] [address] [place] [phone] Mar, Bipolar I disorder, most rec ent episode (or current) mixed, moderate F31.62 [facility] [address] [facility] [id number] [address] [place] [phone] Mar, Acute pain of left knee M25. 562 ; Left hip pain M25.552 ; Generalized edema R60.1 and Tongue swelling R22.0 [facility] [address] [facility] [id number] [address] [place] [phone] Mar, [facility] [address] [facility] [id number] [address] [place] [phone] Feb, Chronic pain G89.29 [facility] [address] [facility] [id number] [address] [place] [phone] Feb, Diabetes E11.9 [facility] [address] [facility] [id number] [address] [place] [phone] January, Chronic pain G89.29 [facility] [address] [facility] [id number] [address] [place] [phone] January, [facility] [address] [facility] [id number] [address] [place] [id number] January, Bipolar I disorder, most rec ent episode (or current) mixed, moderate F31.62 [facility] [address] [facility] [id number] [address] [place] [phone] Dec, Bipolar I disorder, most rec ent episode (or current) mixed, moderate F31.62 [facility] [address] [facility] [id number] [address] [place] [phone] 24 Apr, 2017 Chronic pain G89.29 [facility] [address] [id number] [address] [place] [phone] Dec, Bipolar I disorder, most rec ent episode (or current) mixed, moderate F31.62 [facility] [address] [facility] [id number] [address] [place] [phone] Dec, Diabetes E11.9 ; Essential h ypertension I10 ; Chronic pain G89.29 and Morbid obesity E66.01 [facility] [address] [facility] [id number] [address] [place] [phone] Dec, [facility] [address] [facility] [id number] [address] [place] [phone] Dec, Bipolar I disorder, most rec ent episode (or current) mixed, moderate F31.62 [facility] [address] [facility] [id number] [address] [place] [phone] Dec, Bipolar I disorder, most rec ent episode (or current) mixed, moderate F31.62 [facility] [address] [facility] [id number] [address] [place] [phone] Nov, Chronic pain G89.29 [facility] [address] [facility] [id number] [address] [place] [phone] Nov, Bipolar I disorder, most rec ent episode (or current) mixed, moderate F31.62 [facility] [address] [facility] [id number] [address] [place] [phone] Nov, [facility] [address] [facility] [id number] [address] [place] [phone] Nov, Bipolar I disorder, most rec ent episode (or current) mixed, moderate F31.62 [facility] [address] [facility] [id number] [address] [place] [phone] Nov, Bipolar I disorder, most rec ent episode (or current) mixed, moderate F31.62 [facility] [address] [facility] [id number] [address] [place] [phone] Nov, [facility] [address] [id number] [address] [place] [phone] Nov, [facility] [address] [id number] [address] [place] [phone] Nov, [facility] [address] [facility] [id number] [address] [place] [phone] Oct, Chronic pain G89.29 [facility] [address] [facility] [id number] [address] [place] [phone] Oct, Bipolar I disorder, most rec ent episode (or current) mixed, moderate F31.62 [facility] [address] [id number] [address] [place] [phone] Oct, [facility] [address] [facility] [id number] [address] [place] [phone] Oct, Chronic pain G89.29 ; Diabet es E11.9 ; Anxiety F41.9 and 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 [facility] [address] [facility] [id number] [address] [place] [phone] Oct, [facility] [address] [facility] [id number] [address] [place] [phone] Oct, Diabetes E11.9 [facility] [address] [facility] [id number] [address] [place] [phone] Oct, Bipolar I disorder, most rec ent episode (or current) mixed, moderate F31.62 [facility] [address] [facility] [id number] [address] [place] [phone] Sep, Chronic pain G89.29 [facility] [address] [facility] [id number] [address] [place] [phone] Sep, Chronic pain G89.29 [facility] [address] [facility] [id number] [address] [place] [phone] Aug, Chronic pain G89.29 [facility] [address] [facility] [id number] [address] [place] [phone] Jul, [facility] [address] [place] [id number] [address] [place] [phone] Jul, Diabetes E11.9 [facility] [address] [place] [id number] [address] [place] [phone] Jul, Chronic pain G89.29 [place] [address] [place] [id number] [address] [place] [phone] Jul, Bipolar I disorder, most rec ent episode (or current) mixed, moderate F31.62 [place] [address] [place] [id number] [place] [phone] Jun, Bipolar I disorder, most rec ent episode (or current) mixed, moderate F31.62 [place] [address] [place] [id number] [address] [place] [phone] Jun, [place] [address] [place] [id number] [address] [place] [phone] Jun, Bipolar I disorder, most rec ent episode (or current) mixed, moderate F31.62 [place] [address] [place] [id number] [address] [place] [phone] May, Insomnia, unspecified type G 47.00 [place] [address] [place] [id number] [address] [place] [phone] May, Bipolar I disorder, most rec ent episode (or current) mixed, moderate F31.62 [place] [address] [place] [id number] [address] [place] [phone] 14 May, 2016 [place] [address] [place] [id number] [place] [phone] 08 May, 2016 Bipolar I disorder, most rec ent episode (or current) mixed, moderate F31.62 [place] [address] [place] [id number] [address] [place] [phone] May, Diabetes E11.9 and Essential hypertension I10 [facility] [address] [id number] [address] [place] [phone] Apr, Chronic pain G89.29 [facility] [address] [facility] [id number] [address] [place] [phone] Apr, Bipolar I disorder, most rec ent episode (or current) mixed, moderate F31.62 [place] [id number] [facility] [id number] [address] [place] [phone] Apr, [facility] [address] [facility] [id number] [address] [place] [phone] Apr, [place] [address] [facility] [id number] [address] [place] [phone] Mar, Chronic pain G89.29 ; Headac he, unspecified headache type R51 ; Neuropathy G62.9 ; Pain of right hip joint M25.551 and Essential hypertension I10 [place] [address] [facility] [id number] [address] [place] [phone] Mar, Chronic pain G89.29 [place] [id number] [facility] [id number] [address] [place] [phone] Mar, Bipolar I disorder, most rec ent episode (or current) mixed, moderate F31.62 [place] [id number] [facility] [id number] [address] [place] [phone] Feb, Bipolar I disorder, most rec ent episode (or current) mixed, moderate F31.62 and Insomnia, unspecified type G47.00 [place] [address] [id number] [address] [place] [phone] Feb, Chronic pain G89.29 [place] [address] [facility] [id number] [address] [place] [phone] Feb, Bipolar I disorder, most rec ent episode (or current) mixed, moderate F31.62 [place] [address] [facility] [id number] [address] [place] [phone] January, Bipolar I disorder, most rec ent episode (or current) mixed, moderate F31.62 [facility] [address] [id number] [address] [place] [id number] January, Chronic pain G89.29 [facility] [address] [facility] [id number] [address] [place] [phone] January, Chronic pain G89.29 and Esse ntial hypertension I10 [facility] [address] [id number] [address] [place] [phone] January, Bipolar I disorder, most rec ent episode (or current) mixed, moderate F31.62 [facility] [address] [id number] [address] [place] [phone] Dec, [facility] [address] [facility] [id number] [address] [place] [phone] Dec, [facility] [address] [facility] [id number] [address] [place] [phone] Dec, [facility] [address] [facility] [id number] [address] [place] [phone] Dec, [facility] [address] [facility] [id number] [address] [place] [id number] Nov, Reactive airway disease J45. 909 [facility] [address] [facility] [id number] [address] [place] [phone] Nov, [facility] [address] [id number] [address] [place] [phone] Nov, [facility] [address] [facility] [id number] [address] [place] [phone] Nov, [facility] [address] [facility] [id number] [address] [place] [phone] Nov, [facility] [address] [facility] [id number] [address] [place] [phone] Nov, Onychomycosis B35.1 ; Hammer toe M20.40 ; [place] or callus L84 and DM neuro manif type II E11.49 [facility] [address] [place] [id number] [address] [place] [phone] Nov, Chronic pain G89.29 ; Leukoc ytosis D72.829 and Diabetes E11.9 [facility] [address] [facility] [id number] [address] [place] [id number] Nov, [facility] [address] [place] [id number] [address] [place] [phone] Oct, Bronchitis J40 [facility] [address] [place] [id number] [address] [place] [address] Oct, [place] [address] [address] Oct, [place] [address] [address] Oct, Mastoiditis, unspecified lat erality H70.90 and Type 2 diabetes mellitus with complication E11.8 [place] [address] [place] [id number] [address] [place] [phone] Sep, [place] [address] [address] Sep, Dysuria R30.0 ; Cough R05 ; Benign prostatic hyperplasia with lower urinary tract symptoms, unspecified morphology N40.1 ; Hypokalemia E87.6 and Eustachian tube dysfunction, unspecified laterality H69.80 [place] [id number] [place] [phone] Sep, Moderate mixed bipolar I dis order F31.62 [place] [address] [address] Sep, Hypokalemia E87.6 [place] [address] [place] [id number] [address] [place] [phone] Sep, [place] [address] [phone] Sep, Upper respiratory tract infe ction, unspecified type J06.9 [facility] [address] [id number] [address] [place] [phone] Aug, [facility] [address] [id number] [address] [place] [phone] Aug, Dysuria R30.0 [facility] [address] [id number] [address] [place] [phone] Aug, [facility] [address] [id number] [address] [place] [phone] Jul, [facility] [address] [id number] [address] [place] [phone] Jul, [facility] [address] [id number] [address] [place] [phone] Jul, [facility] [address] [id number] [address] [place] [phone] Jul, [facility] [address] [id number] [address] [place] [phone] Jun, [facility] [address] [id number] [address] [place] [phone] Jun, [facility] [address] [id number] [address] [place] [phone] Jun, [facility] [address] [id number] [address] [place] [phone] May, [facility] [address] [id number] [address] [place] [phone] May, Bipolar I disorder, most rec ent episode (or current) mixed, moderate 296.62 [facility] [address] [id number] [address] [place] [phone] 16 May, 2015 [facility] [address] [id number] [address] [place] [phone] May, Bipolar I disorder, most rec ent episode (or current) mixed, moderate 296.62 and Major depressive disorder, recurrent episode, severe, specified as with psychotic behavior 296.34 [facility] [address] [facility] [id number] [address] [place] [phone] May, Bipolar I disorder, most rec ent episode (or current) mixed, moderate 296.62 [facility] [address] [facility] [id number] [address] [place] [phone] May, [facility] [address] [facility] [id number] [address] [place] [phone] Apr, [facility] [address] [facility] [id number] [address] [place] [phone] Apr, [facility] [address] [place] [id number] [address] [place] [phone] Apr, Unspecified disorder of kidn ey and ureter 593.9 and Diabetes mellitus type 2, uncontrolled 250.02 [facility] [address] [place] [id number] [address] [place] [phone] Apr, [facility] [address] [facility] [id number] [address] [place] [phone] Apr, [facility] [address] [place] [id number] [address] [place] [phone] Apr, [facility] [address] [facility] [id number] [address] [place] [phone] Apr, [facility] [address] [place] [id number] [address] [place] [phone] Apr, Diabetes mellitus type II, u ncontrolled 250.02 [facility] [address] [facility] [id number] [address] [place] [phone] Apr, [facility] [address] [facility] [id number] [address] [place] [phone] Mar, [facility] [address] [place] [id number] [address] [place] [phone] Mar, [facility] [address] [facility] [id number] [address] [place] [phone] Mar, [facility] [address] [place] [id number] [address] [place] [phone] Mar, Major depressive disorder, r ecurrent episode, severe, specified as with psychotic behavior 296.34 and Bipolar I disorder, most recent episode (or current) mixed, moderate 296.62 [facility] [address] [place] [address] Mar, Diabetes 250.00 ; Anuria 788 .5 ; Nausea and vomiting 787.01 and Diarrhea 787.91 [facility] [address] [place] [id number] [address] [place] [phone] Mar, Diabetes 250.00 [facility] [address] [place] [id number] [address] [place] [id number] Mar, [facility] [address] [place] [id number] [address] [place] [phone] Mar, Diabetes 250.00 [facility] [address] [place] [id number] [address] [place] [phone] Mar, [facility] [address] [place] [id number] [address] [place] [phone] Mar, [facility] [address] [place] [id number] [address] [place] [phone] Mar, [facility] [address] [place] [id number] [address] [place] [phone] Mar, [facility] [address] [place] [id number] [address] [place] [phone] Mar, Bipolar I disorder, most rec ent episode (or current) mixed, moderate 296.62 and Major depressive disorder, recurrent episode, severe, specified as with psychotic behavior 296.34 [facility] [address] [place] [id number] [address] [place] [address] Mar, Magnesium deficiency 275.2 ; Hypokalemia 276.8 ; Nausea & vomiting 787.01 and Diabetes mellitus type 2, uncontrolled 250.02 [place] [address] [id number] Feb, [facility] [address] [address] Feb, Bipolar I disorder, most rec ent episode (or current) mixed, moderate 296.62 [place] [address] [address] Feb, Nausea and vomiting 787.01 ; Left elbow pain 719.42 ; Anuria 788.5 and Diabetes 250.00 [place] [address] [id number] Feb, [place] [address] [address] Feb, Hypopotassemia 276.8 and Hyp okalemia 276.[address] [address] Feb, Hypopotassemia 276.8 and Hyp okalemia 276.8 [place] [address] [id number] Feb, Seborrheic keratoses 702.19 [place] [address] [address] Feb, Hypopotassemia 276.8 and Low magnesium levels 275.2 [place] [address] [id number] January, [place] [address] [address] January, [place] [address] [address] January, [place] [address] [address] January, Scalp lesion 709.9 [facility] [address] [id number] [address] [place] [phone] January, [facility] [address] [id number] [address] [place] [phone] Dec, Tear of medial cartilage or meniscus of knee, current 836.0 and 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 [facility] [address] [id number] [address] [place] [phone] Dec, [facility] [address] [id number] [address] [place] [phone] Dec, [facility] [address] [id number] [address] [place] [phone] Dec, Squamous cell carcinoma, 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 [facility] [address] [id number] [address] [place] [phone] Dec, [facility] [address] [id number] [address] [place] [phone] Dec, [facility] [address] [id number] [address] [place] [phone] Nov, [facility] [address] [id number] [address] [place] [phone] Nov, [facility] [address] [id number] [address] [place] [phone] Nov, [facility] [address] [id number] [address] [place] [phone] Nov, [facility] [address] [id number] [address] [place] [phone] Nov, [facility] [address] [id number] [address] [place] [phone] Nov, [facility] [address] [id number] [address] [place] [phone] Nov, [facility] [address] [id number] [address] [place] [address], [place] [address] Nov, 2014 [facility] [address] [id number] [address] [place] [address], [place] [address] Nov, 2014 [facility] [address] [id number] [address] [place] [address], [place] [address] Nov, 2014 [facility] [address] [id number] [address] [place] [address], [place] [address] Nov, 2014 [facility] [address] [id number] [address] [place] [address], [place] [address] Nov, 2014 [facility] [address] [id number] [address] [place] [address], [place] [address] Oct, 2014 [facility] [address] [id number] [address] [place] [address], [place] [address] Oct, 2014 [facility] [address] [id number] [address] [place] [address], [place] [address] Oct, 2014 [facility] [address] [id number] [address] [place] [address], [place] [address] Oct, 2014 [facility] [address] [id number] [address] [place] [address], [place] [address] Oct, 2014 [facility] [address] [id number] [address] [place] [phone] Oct, 2014 [facility] [address] [id number] [address] [place] [phone] Oct, 2014 [facility] [address] [id number] [address] [place] [address], [place] [address] Oct, 2014 [facility] [address] [id number] [address] [place] [phone] Oct, 2014 [facility] [address] [id number] [address] [place] [phone] Sep, [facility] [address] [id number] [address] [place] [phone] Sep, [facility] [address] [id number] [address] [place] [address], [place] [address] Sep, [facility] [address] [id number] [address] [place] [address], [place] [address] Sep, [facility] [address] [id number] [address] [place] [address], [place] [address] Sep, [facility] [address] [id number] [address] [place] [address], [place] [address] Sep, [facility] [address] [id number] [address] [place] [address], [place] [address] Sep, [facility] [address] [id number] [address] [place] [address], [place] [address] Sep, [facility] [address] [id number] [address] [place] [address], [place] [address] Sep, [facility] [address] [id number] [address] [place] [address], [place] [address] Sep, [facility] [address] [id number] [address] [place] [address], [place] [address] Sep, [facility] [address] [id number] [address] [place] [address], [place] [address] Sep, [facility] [address] [id number] [address] [place] [address], [place] [address] Sep, [facility] [address] [id number] [address] [place] [address], [place] [address] Sep, [facility] [address] [id number] [address] [place] [address], [place] [address] Sep, [facility] [address] [id number] [address] [place] [address], [place] [address] Sep, [facility] [address] [id number] [address] [place] [address], [place] [address] Aug, [facility] [address] [id number] [facility] [place] [address] Aug, [facility] [address] [id number] [facility] [place] [address] Aug, [facility] [address] [id number] [facility] [place] [address] Aug, [facility] [address] [id number] [facility] [place] [address] Aug, [facility] [address] [id number] [facility] [place] [address] Aug, [facility] [address] [id number] [facility] [place] [address] Aug, [facility] [address] [id number] [facility] [place] [address] Aug, [facility] [address] [id number] [address] [place] [address], [place] [address] Aug, [facility] [address] [id number] [address] [place] [address], [place] [address] Aug, [facility] [address] [id number] [address] [place] [address], [place] [address] Aug, [facility] [place] [facility] [address] [place] [id number] Aug, [facility] [address] [id number] [address] [place] [address], [place] [address] Aug, [facility] [address] [id number] [address] [place] [address], [place] [address] Aug, [facility] [address] [id number] [facility] [place] [address] Aug, [facility] [address] [id number] [facility] [place] [address] Aug, [facility] [address] [id number] [facility] [place] [address] Aug, [facility] [address] [id number] [address] [place] [address], [place] [address] Aug, [facility] [address] [id number] [address] [place] [address], [place] [address] Aug, [facility] [address] [id number] [address] [place] [address], [place] [address] Aug, [facility] [address] [id number] [address] [place] [address], [place] [address] Aug, [facility] [address] [id number] [address] [place] [address], [place] [address] Aug, [facility] [address] [id number] [address] [place] [address], [place] [address] Aug, [facility] [address] [id number] [address] [place] [address], [place] [address] Aug, [facility] [address] [id number] [address] [place] [address], [place] [address] Aug, [facility] [address] [id number] [address] [place] [address], [place] [address] Aug, [facility] [address] [id number] [address] [place] [address], [place] [address] Aug, [facility] [address] [id number] [address] [place] [address], [place] [address] Aug, [facility] [address] [id number] [address] [place] [address], [place] [address] Aug, [facility] [address] [id number] [address] [place] [address], [place] [address] Aug, [facility] [address] [id number] [address] [place] [address], [place] [address] Jul, [facility] [address] [id number] [address] [place] [address], [place] [address] Jul, [facility] [address] [id number] [address] [place] [address] Jul, [facility] [address] [id number] [address] [place] [address], [place] [address] Jul, [facility] [address] [id number] [address] [place] [address], [place] [address] Jul, [facility] [address] [id number] [address] [place] [address], [place] [address] Jul, [facility] [address] [id number] [address] [place] [address], [place] [address] Jul, [facility] [address] [id number] [address] [place] [address], [place] [address] Jul, [facility] [address] [id number] [address] [place] [address], [place] [address] Jul, [facility] [address] [id number] [address] [place] [address], [place] [address] Jul, [facility] [address] [id number] [address] [place] [address], [place] [address] Jun, [facility] [address] [id number] [address] [place] [address], [place] [address] Jun, [facility] [address] [id number] [address] [place] [address], [place] [address] Jun, [facility] [address] [id number] [address] [place] [id number] Jun, [facility] [address] [id number] [address] [place] [address] Jun, [facility] [address] [id number] [address] [place] [address] Jun, [facility] [address] [id number] [address] [place] [address], [place] [address] Jun, [facility] [address] [id number] [address] [place] [address] Jun, [facility] [address] [id number] [facility] [place] [address] Jun, [facility] [address] [id number] [address] [place] [address], [place] [address] Jun, [facility] [address] [id number] [address] [place] [address], [place] [address] 29 May, 2013 [facility] [address] [id number] [address] [place] [address], [place] [address] 29 Sep, 2013 [facility] [address] [id number] [address] [place] [address], [place] [address] 26 May, 2013 [facility] [address] [id number] [address] [place] [address], [place] [address] 26 May, 2013 [facility] [address] [id number] [address] [place] [address], [place] [address] 17 May, 2013 [facility] [address] [id number] [address] [place] [address], [place] [address] 17 May, 2013 [facility] [address] [id number] [address] [place] [address], [place] [address] 15 May, 2013 [facility] [address] [id number] [address] [place] [address], [place] [address] 15 May, 2013 [facility] [address] [id number] [address] [place] [address], [place] [address] 15 May, 2013 [facility] [address] [id number] [address] [place] [address], [place] [address] 15 May, 2013 [facility] [address] [id number] [address] [place] [address], [place] [address] 10 Sep, 2013 [facility] [address] [id number] [address] [place] [address], [place] [address] 10 Sep, 2013 [facility] [address] [id number] [address] [place] [address], [place] [address] 09 Sep, 2013 [facility] [address] [id number] [address] [place] [address], [place] [address] May, [facility] [address] [id number] 100[facility] [place] [address] May, [facility] [address] [id number] 100[facility] [place] [address] May, [facility] [address] [id number] 100[facility] [place] [address] Apr, [facility] [address] [id number] [address] [place] [address], [place] [address] Apr, [facility] [address] [id number] [address] [place] [address], [place] [address] Apr, [facility] [address] [id number] [address] [place] [address], [place] [address] Apr, [facility] [address] [id number] [address] [place] [address], [place] [address] Apr, [facility] [address] [id number] [address] [place] [address], [place] [address] Apr, [facility] [address] [id number] [address] [place] [address], [place] [address] Apr, [facility] [address] [id number] [address] [place] [address], [place] [address] Apr, [facility] [address] [id number] [address] [place] [address], [place] [address] Apr, [facility] [address] [id number] [address] [place] [address], [place] [address] Apr, [facility] [address] [id number] [address] [place] [address], [place] [address] Apr, [facility] [address] [id number] [address] [place] [address], [place] [address] Apr, [facility] [address] [id number] [address] [place] [address], [place] [address] Apr, [facility] [address] [id number] 100[facility] [place] [address] Apr, [facility] [address] [id number] [address] [place] [address], [place] [address] Apr, [facility] [address] [id number] [address] [place] [address], [place] [address] Mar, [facility] [address] [id number] [address] [place] [address], [place] [address] Mar, [facility] [address] [id number] [address] [place] [address], [place] [address] Mar, [facility] [address] [id number] [address] [place] [address], [place] [address] Mar, [facility] [address] [id number] [address] [place] [address], [place] [address] Mar, [facility] [address] [id number] [address] [place] [address], [place] [address] Mar, [facility] [address] [id number] [address] [place] [address], [place] [address] Mar, [facility] [address] [id number] [address] [place] [address], [place] [address] Mar, [facility] [address] [id number] [address] [place] [address], [place] [address] Mar, [facility] [address] [id number] [address] [place] [address], [place] [address] Mar, [facility] [address] [id number] [address] [place] [address], [place] [address] Mar, [facility] [address] [id number] [address] [place] [address], [place] [address] Mar, [facility] [address] [id number] [address] [place] [address], [place] [address] Mar, [facility] [address] [id number] [address] [place] [address], [place] [address] Mar, [facility] [address] [id number] 100[facility] [place] [address] Mar, 2013 [facility] [address] [id number] [facility] [place] [address] Mar, 2013 [facility] [address] [id number] [facility] [place] [address] Mar, [facility] [address] [id number] [facility] [place] [address] Mar, [facility] [address] [id number] 100[facility] [place] [address] Feb, [facility] [address] [id number] [address] [place] [address], [place] [address] Feb, [facility] [address] [id number] [address] [place] [address], [place] [address] Feb, [facility] [address] [id number] [address] [place] [address], [place] [address] Feb, [facility] [address] [id number] [address] [place] [address], [place] [address] Feb, [facility] [address] [id number] [address] [place] [address], [place] [address] Feb, [facility] [address] [id number] [address] [place] [address], [place] [address] Feb, [facility] [address] [id number] [address] [place] [address], [place] [address] Feb, [facility] [address] [id number] [address] [place] [address], [place] [address] Feb, [facility] [address] [id number] [address] [place] [address], [place] [address] Feb, [facility] [address] [id number] [address] [place] [address], [place] [address] Feb, [facility] [address] [id number] [address] [place] [address], [place] [address] Feb, [facility] [address] [id number] [address] [place] [address], [place] [address] Feb, [facility] [address] [id number] [address] [place] [address], [place] [address] Feb, [facility] [address] [id number] [address] [place] [address], [place] [address] January, [facility] [address] [id number] [address] [place] [address], [place] [address] January, [facility] [address] [id number] [address] [place] [address], [place] [address] January, [facility] [address] [id number] [address] [place] [address], [place] [address] January, [facility] [address] [id number] [address] [place] [address], [place] [address] January, [facility] [address] [id number] [address] [place] [address], [place] [address] January, [facility] [address] [id number] [address] [place] [address], [place] [address] January, [facility] [address] [id number] [address] [place] [address], [place] [address] January, [facility] [address] [id number] [address] [place] [address], [place] [address] January, [facility] [address] [id number] [address] [place] [address], [place] [address] January, [facility] [address] [id number] [address] [place] [address], [place] [address] January, [facility] [address] [id number] [address] [place] [address], [place] [address] January, [facility] [address] [id number] [address] [place] [address], [place] [address] January, [facility] [address] [id number] [facility] [place] [address] January, [facility] [address] [id number] [facility] [place] [address] Dec, [facility] [address] [id number] [facility] [place] [address] Dec, [facility] [address] [id number] [address] [place] [address], [place] [address] Dec, [facility] [address] [id number] [address] [place] [address], [place] [address] Dec, [facility] [address] [id number] [address] [place] [address], [place] [address] Dec, [facility] [address] [id number] [address] [place] [address], [place] [address] Dec, [facility] [address] [id number] [address] [place] [address], [place] [address] Dec, [facility] [address] [id number] [address] [place] [address], [place] [address] Dec, [facility] [address] [id number] [address] [place] [address], [place] [address] Dec, [facility] [address] [id number] [address] [place] [address], [place] [address] Dec, [facility] [address] [id number] [address] [place] [address], [place] [address] Nov, [facility] [address] [id number] [address] [place] [address], [place] [address] Nov, [facility] [address] [id number] [address] [place] [address], [place] [address] Nov, [facility] [address] [id number] [address] [place] [address], [place] [address] Nov, [facility] [address] [id number] [address] [place] [address], [place] [address] Nov, [facility] [address] [id number] [facility] [place] [address] 08 Nov, 2013 [facility] [address] [id number] [address] [place] [address], [place] [address] Nov, [facility] [address] [id number] [address] [place] [address], [place] [address] Nov, [facility] [address] [id number] [address] [place] [address], [place] [address] Nov, [facility] [address] [id number] [address] [place] [address], [place] [address] Nov, [facility] [address] [id number] [address] [place] [address], [place] [address] Oct, [facility] [address] [id number] [address] [place] [address], [place] [address] Oct, [facility] [address] [id number] [address] [place] [address], [place] [address] Oct, [facility] [address] [id number] [address] [place] [address], [place] [address] Oct, [facility] [address] [id number] [address] [place] [address], [place] [address] Oct, [facility] [address] [id number] [address] [place] [address], [place] [address] Oct, [facility] [address] [id number] [address] [place] [address], [place] [address] 14 Oct, 2013 [facility] [address] [id number] [address] [place] [address], [place] [address] 14 Oct, 2013 [facility] [address] [id number] [address] [place] [address], [place] [address] 05 Oct, 2013 [facility] [address] [id number] [address] [place] [address], [place] [address] Oct, [facility] [address] [id number] [address] [place] [address], [place] [address] 04 Oct, 2013 [facility] [address] [id number] [address] [place] [address], [place] [address] Oct, [facility] [address] [id number] [address] [place] [address], [place] [address] Oct, [facility] [address] [id number] [address] [place] [address], [place] [address] Oct, [facility] [address] [id number] [address] [place] [address], [place] [address] Sep, [facility] [address] [id number] [address] [place] [address], [place] [address] Sep, [facility] [address] [id number] [address] [place] [address], [place] [address] Sep, [facility] [address] [id number] [address] [place] [address], [place] [address] Sep, [facility] [address] [id number] [address] [place] [address], [place] [address] Sep, [facility] [address] [id number] [address] [place] [address], [place] [address] Sep, [facility] [address] [id number] [address] [place] [address], [place] [address] Sep, [facility] [address] [id number] [address] [place] [address], [place] [address] Sep, [facility] [address] [id number] [address] [place] [address], [place] [address] Sep, [facility] [address] [id number] [address] [place] [address], [place] [address] Sep, [facility] [address] [id number] [address] [place] [address], [place] [address] 10 Aug, 2013 [facility] [address] [id number] [address] [place] [address], [place] [address] Aug, [facility] [address] [id number] [address] [place] [address], [place] [address] Jul, [facility] [address] [id number] [address] [place] [address], [place] [address] Jul, [facility] [address] [id number] [address] [place] [address], [place] [address] Jul, [facility] [address] [id number] [address] [place] [address], [place] [address] Jul, [facility] [address] [id number] [address] [place] [address], [place] [address] Jul, [facility] [address] [id number] [address] [place] [address] Jul, [facility] [address] [id number] [address] [place] [address], [place] [address] Jul, [facility] [address] [id number] [address] [place] [address] Jul, [facility] [address] [id number] [address] [place] [address] Jul, [facility] [address] [id number] [address] [place] [address] Jul, [facility] [address] [id number] [address] [place] [address] Jul, [facility] [address] [id number] [address] [place] [address] Jul, [facility] [address] [id number] [address] [place] [address] Jul, [facility] [address] [id number] [address] [place] [address] Jul, [facility] [address] [id number] [address] [place] [address] Jul, [facility] [address] [id number] [address] [place] [address], [place] [address] 05 Jul, 2012 [facility] [address] [id number] [address] [place] [address], [place] [address] Jul, 2012 [facility] [address] [id number] [address] [place] [address], [place] [address] Jul, 2012 [facility] [address] [id number] [address] [place] [address], [place] [address] Jul, 2012 [facility] [address] [id number] [address] [place] [address], [place] [address] Jun, 2012 [facility] [address] [id number] [address] [place] [address], [place] [address] Jun, 2012 [facility] [address] [id number] [address] [place] [address], [place] [address] Jun, 2012 [facility] [address] [id number] [address] [place] [address], [place] [address] Jun, 2012 [facility] [address] [id number] [address] [place] [address], [place] [address] Jun, 2012 [facility] [address] [id number] [address] [place] [address], [place] [address] Jun, 2012 [facility] [address] [id number] [address] [place] [address], [place] [address] Jun, 2012 [facility] [address] [id number] [address] [place] [address], [place] [address] Jun, 2012 [facility] [address] [id number] [address] [place] [address] Jun, [facility] [address] [id number] [address] [place] [address], [place] [address] Jun, [facility] [address] [id number] [address] [place] [address], [place] [address] Jun, [facility] [address] [id number] [address] [place] [address], [place] [address] May, [facility] [address] [id number] [address] [place] [address], [place] [address] 25 May, 2012 [facility] [address] [id number] [address] [place] [address], [place] [address] 19 May, 2012 [facility] [address] [id number] [address] [place] [address], [place] [address] 17 May, 2012 [facility] [address] [id number] [address] [place] [address], [place] [address] 11 May, 2012 [facility] [address] [id number] [address] [place] [address], [place] [address] 10 May, 2012 [facility] [address] [id number] [address] [place] [address], [place] [address] 09 May, 2012 [facility] [address] [id number] [address] [place] [address], [place] [address] 05 May, 2012 [facility] [address] [id number] [address] [place] [address], [place] [address] Apr, [facility] [address] [id number] [address] [place] [address], [place] [address] Apr, [facility] [address] [id number] [address] [place] [address], [place] [address] Apr, [facility] [address] [id number] [address] [place] [address], [place] [address] Apr, [facility] [address] [id number] [address] [place] [address], [place] [address] Apr, [facility] [address] [id number] [address] [place] [address], [place] [address] Mar, [facility] [address] [id number] [address] [place] [address], [place] [address] Mar, [facility] [address] [id number] [address] [place] [address], [place] [address] Mar, [facility] [address] [id number] [address] [place] [address], [place] [address] Mar, [facility] [address] [id number] [address] [place] [address], [place] [address] Mar, [facility] [address] [id number] [address] [place] [address], [place] [address] Mar, [facility] [address] [id number] [address] [place] [address], [place] [address] Mar, [facility] [address] [id number] [address] [place] [address], [place] [address] Mar, [facility] [address] [id number] [address] [place] [address], [place] [address] Feb, [facility] [address] [id number] [address] [place] [address], [place] [address] Feb, [facility] [address] [id number] [address] [place] [address], [place] [address] January, [facility] [address] [id number] [address] [place] [address], [place] [address] January, [facility] [address] [id number] [address] [place] [address], [place] [address] Dec, [facility] [address] [id number] [address] [place] [address], [place] [address] Dec, [facility] [address] [id number] [address] [place] [address], [place] [address] Nov, [facility] [address] [id number] [address] [place] [address], [place] [address] Nov, [facility] [address] [id number] [address] [place] [address], [place] [address] Nov, [facility] [address] [id number] [address] [place] [address], [place] [address] Nov, [facility] [address] [id number] [address] [place] [address], [place] [address] Oct, [facility] [address] [id number] [address] [place] [address], [place] [address] Oct, 2012 [facility] [address] [id number] [address] [place] [address], [place] [address] Oct, [facility] [address] [id number] [address] [place] [address], [place] [address] Oct, 2012 [facility] [address] [id number] [address] [place] [address], [place] [address] 16 Oct, 2012 [facility] [address] [id number] [address] [place] [address], [place] [address] 14 Oct, 2012 [facility] [address] [id number] [address] [place] [address], [place] [address] 08 Oct, 2012 [facility] [address] [id number] [address] [place] [address], [place] [address] 07 Oct, 2012 [facility] [address] [id number] [address] [place] [address], [place] [address] 03 Oct, 2012 [facility] [address] [id number] [address] [place] [address], [place] [address] Sep, [facility] [address] [id number] [address] [place] [address], [place] [address] Sep, [facility] [address] [id number] [address] [place] [address], [place] [address] Sep, [facility] [address] [id number] [address] [place] [address], [place] [address] Sep, [facility] [address] [id number] [address] [place] [address], [place] [address] Sep, [facility] [address] [id number] [address] [place] [address], [place] [address] Sep, [facility] [address] [id number] [address] [place] [address], [place] [address] Sep, [facility] [address] [id number] [address] [place] [address], [place] [address] Sep, [facility] [address] [id number] [address] [place] [address], [place] [address] Aug, [facility] [address] [id number] [address] [place] [address], [place] [address] Aug, [facility] [address] [id number] [address] [place] [address], [place] [address] Aug, [facility] [address] [id number] [address] [place] [address], [place] [address] Aug, [facility] [address] [id number] [address] [place] [address], [place] [address] Aug, [facility] [address] [id number] [address] [place] [address], [place] [address] Aug, [facility] [address] [id number] [address] [place] [address], [place] [address] Aug, [facility] [address] [id number] [address] [place] [address], [place] [address] Aug, [facility] [address] [id number] [address] [place] [address], [place] [address] Jul, [facility] [address] [id number] [address] [place] [address], [place] [address] Jul, [facility] [address] [id number] [address] [place] [address], [place] [address] Jul, [facility] [address] [id number] [address] [place] [address], [place] [address] Jul, [facility] [address] [id number] [address] [place] [address], [place] [address] Jul, [facility] [address] [id number] [address] [place] [address], [place] [address] Jul, [facility] [address] [id number] [address] [place] [address], [place] [address] Jun, [facility] [address] [id number] [address] [place] [address], [place] [address] Jun, [facility] [address] [id number] [address] [place] [address], [place] [address] Jun, [facility] [address] [id number] [address] [place] [address], [place] [address] Jun, [facility] [address] [id number] [address] [place] [address], [place] [address] Jun, [facility] [address] [id number] [address] [place] [address], [place] [address] Jun, [facility] [address] [id number] [address] [place] [address], [place] [address] Jun, [facility] [address] [id number] [address] [place] [address], [place] [address] Jun, [facility] [address] [id number] [address] [place] [address], [place] [address] 10 Jun, 2012 [facility] [address] [id number] [address] [place] [address], [place] [address] 26 May, 2012 [facility] [address] [id number] [address] [place] [address], [place] [address] 24 May, 2012 [facility] [address] [id number] [address] [place] [address], [place] [address] 18 May, 2012 [facility] [address] [id number] [address] [place] [address], [place] [address] 30 Apr, 2012 [facility] [address] [id number] [address] [place] [address], [place] [address] 29 Apr, 2012 [facility] [address] [id number] [address] [place] [address], [place] [address] Apr, [facility] [address] [id number] [address] [place] [address], [place] [address] 14 Apr, 2012 [facility] [address] [id number] [address] [place] [address], [place] [address] Apr, [facility] [address] [id number] [address] [place] [address], [place] [address] Apr, [facility] [address] [id number] [address] [place] [address], [place] [address] Mar, [facility] [address] [id number] [address] [place] [address], [place] [address] Mar, [facility] [address] [id number] [address] [place] [address], [place] [address] Mar, [facility] [address] [id number] [address] [place] [address], [place] [address] Mar, [facility] [address] [id number] [address] [place] [address], [place] [address] Feb, [facility] [address] [id number] [address] [place] [address], [place] [address] Feb, [facility] [address] [id number] [address] [place] [address], [place] [address] Feb, [facility] [address] [id number] [address] [place] [address], [place] [address] Feb, [facility] [address] [id number] [address] [place] [address], [place] [address] Feb, [facility] [address] [id number] [address] [place] [address], [place] [address] January, [facility] [address] [id number] [address] [place] [address], [place] [address] January, [facility] [address] [id number] [address] [place] [address], [place] [address] January, [facility] [address] [id number] [address] [place] [address], [place] [address] January, [facility] [address] [id number] [address] [place] [address], [place] [address] January, [facility] [address] [id number] [address] [place] [address], [place] [address] January, [facility] [address] [id number] [address] [place] [address], [place] [address] 24 Dec, 2011 [facility] [address] [id number] [address] [place] [address], [place] [address] 24 Dec, 2011 [facility] [address] [id number] [address] [place] [address], [place] [address] 17 Dec, 2011 [facility] [address] [id number] [address] [place] [address], [place] [address] 09 Dec, 2011 [facility] [address] [id number] [address] [place] [address], [place] [address] 06 Dec, 2011 [facility] [address] [id number] [address] [place] [address], [place] [address] 27 Nov, 2011 [facility] [address] [id number] [address] [place] [address], [place] [address] 14 Nov, 2011 [facility] [address] [id number] [address] [place] [address], [place] [address] 12 Nov, 2011 [facility] [address] [id number] [address] [place] [address], [place] [address] 07 Nov, 2011 [facility] [address] [id number] [address] [place] [address], [place] [address] 29 Oct, 2011 [facility] [address] [id number] [address] [place] [address], [place] [address] 28 Oct, 2011 [facility] [address] [id number] [address] [place] [address], [place] [address] 24 Oct, 2011 [facility] [address] [id number] [address] [place] [address], [place] [address] 13 Oct, 2011 [facility] [address] [id number] [address] [place] [address], [place] [address] 08 Oct, 2011 [facility] [address] [id number] [address] [place] [address], [place] [address] Sep, [facility] [address] [id number] [address] [place] [address], [place] [address] Sep, [facility] [address] [id number] [address] [place] [address], [place] [address] Sep, [facility] [address] [id number] [address] [place] [address], [place] [address] Sep, [facility] [address] [id number] [address] [place] [address], [place] [address] Sep, [facility] [address] [id number] [address] [place] [address], [place] [address] Sep, [facility] [address] [id number] [address] [place] [address], [place] [address] Aug, [facility] [address] [id number] [address] [place] [address], [place] [address] Aug, [facility] [address] [id number] [address] [place] [address] Aug, [facility] [address] [id number] [address] [place] [address], [place] [address] Jul, [facility] [address] [id number] [address] [place] [address] Jul, [facility] [address] [id number] [address] [place] [address] Jul, [facility] [address] [id number] [address] [place] [address] Jul, [facility] [address] [id number] [address] [place] [address], [place] [address] Jun, [facility] [address] [id number] [address] [place] [address], [place] [address] Jun, [facility] [address] [id number] [address] [place] [address] Jun, [facility] [address] [id number] [address] [place] [phone] 10 Jun, 2011 [facility] [address] [id number] [address] [place] [address], [place] [address] 10 Jun, 2011 [facility] [address] [id number] [address] [place] [address], [place] [address] 10 Jun, 2011 [facility] [address] [id number] [address] [place] [address], [place] [address] 11 Mar, 2011 [facility] [address] [id number] [address] [place] [address], [place] [address] 18 Dec, 2010 [facility] [address] [id number] [address] [place] [address], [place] [address] 11 Dec, 2010 [facility] [address] [id number] [address] [place] [address], [place] [address] 18 Nov, 2010 [facility] [address] [id number] [address] [place] [address], [place] [address] 16 Nov, 2010 [facility] [address] [id number] [address] [place] [address], [place] [address] 10 Sep, 2010 [facility] [address] [id number] [address] [place] [address], [place] [address] 31 Aug, 2010 [facility] [address] [id number] [address] [place] [address], [place] [address] 29 Aug, 2010 [facility] [address] [id number] [address] [place] [address], [place] [address] 29 Aug, 2010 [facility] [address] [id number] [address] [place] [address], [place] [address] 29 Aug, 2010 [facility] [address] [id number] [address] [place] [address], [place] [address] 27 Aug, 2010 [facility] [address] [id number] [address] [place] [address], [place] [address] 14 Aug, 2010 [facility] [address] [id number] [address] [place] [address], [place] [address] 08 Aug, 2010 [facility] [address] [id number] [address] [place] [address], [place] [address] 08 Aug, 2010 [facility] [address] [id number] [address] [place] [address], [place] [address] Aug, [facility] [address] [id number] [address] [place] [address], [place] [address] Aug, [facility] [address] [id number] [address] [place] [address], [place] [address] Aug, [facility] [address] [id number] [address] [place] [address], [place] [address] Aug, [facility] [address] [id number] [address] [place] [address], [place] [address] Jul, [facility] [address] [id number] [address] [place] [address], [place] [address] Jul, [facility] [address] [id number] [address] [place] [address], [place] [address] Jul, [facility] [address] [id number] [address] [place] [address], [place] [address] Jul, [facility] [address] [id number] [address] [place] [address], [place] [address] Jul, [facility] [address] [id number] [address] [place] [address], [place] [address] Jul, [facility] [address] [id number] [address] [place] [address], [place] [address] Jun, [facility] [address] [id number] [address] [place] [address], [place] [address] Jun, [facility] [address] [id number] [address] [place] [address], [place] [address] Jun, [facility] [address] [id number] [address] [place] [address], [place] [address] Jun, [facility] [address] [id number] [address] [place] [address], [place] [address] 16 Apr, 2010 [facility] [address] [id number] [address] [place] [address], [place] [address] Mar, [facility] [address] [id number] [address] [place] [address], [place] [address] Feb, [facility] [address] [id number] [address] [place] [address], [place] [address] January, [facility] [address] [id number] [address] [place] [address], [place] [address] 15 Dec, 2009 [facility] [address] [id number] [address] [place] [address], [place] [address] Nov, [facility] [address] [id number] [address] [place] [address], [place] [address] Aug, [facility] [address] [id number] [address] [place] [address], [place] [address] Aug, [facility] [address] [id number] [address] [place] [address] Aug, [facility] [address] [id number] [address] [place] [address] Jul, [facility] [address] [id number] [address] [place] [address] Jul, [facility] [address] [id number] [address] [place] [address] Jul, [facility] [address] [id number] [address] [place] [address] 30 Jun, 2009 [facility] [address] [id number] [address] [place] [address], [place] [address] 29 Jun, 2009 [facility] [address] [id number] [address] [place] [address] Jun, [facility] [address] [id number] [address] [place] [address] 22 Jun, 2009 [facility] [address] [id number] [address] [place] [phone] Jun, [facility] [address] [facility] [id number] [address] [place] [address] Jun, [facility] [address] [facility] [id number] [address] [place] [address] Apr, [facility] [address] [facility] [id number] [address] [place] [phone] Apr, [facility] [address] [facility] [id number] [address] [place] [address] Feb, [facility] [address] [facility] [id number] [address] [place] [address] January, [facility] [address] [facility] [id number] [address] [place] [address] Dec, IMMUNIZATIONS No Known Immunizations SOCIAL HISTORY Never Assessed REASON FOR VISIT PLAN OF CARE VITAL SIGNS Height 67 in 2014-10-02 Weight 317.1 lbs 2014-10-02 Temperature 98.4 degrees Fahrenheit 2014-10-02 Heart Rate 76 bpm 2014-10-02 Respiratory Rate 20 2014-10-02 Blood pressure systolic 146 mmHg 2014-10-02 Blood pressure diastolic 90 mmHg 2014-10-02 MEDICATIONS Unknown Medications RESULTS No Results PROCEDURES Procedure Date Ordered Result Body Site POLYSOMNOGRAPHY W/CPAP Oct 02, 2014 US EXAM, EXTREMITY Oct 02, 2014 X-RAY EXAM OF KNEE, 1 OR 2 Oct 02, 2014 INSTRUCTIONS MEDICATIONS ADMINISTERED No Known Medications MEDICAL (GENERAL) HISTORY Type Description Date Medical History type II diabetes Medical History coronary artery disease stress test 15 Medical History chronic obstructive pulmonary disease (C OPD) Medical History gastroesophageal reflux disease (GERD) Medical History acute renal failure Medical History erectile dysfunction Medical History hyperlipidemia Medical History obesity Medical History skin cancer-basal cell R mu-ism (removed ) Medical History Arthritis Medical History [...] History inability to urinate 09/16/15 Hospitalization History [facility] inpatient mental health ea rly 2000's Hospitalization History hyperkalemia 10/2017 Hospitalization History fluid in lung
--- OUTSIDE RECORDS SUMMARY | 2020-03-01 17:56 | XMS REPORT ---
Author Author Michele WASHBURN Organization [facility] Address [address] [place] [address] Care Team Providers Care Pharmaceutical Assistant Name Role Phone NOEMI WASHBURN Unavailable PROBLEMS Type Condition ICD9-CM Code ZLC75-OX Code Onset Dates Condition S tatus SNOMED Code Problem Leukocytosis D72.829 Active 4814366 06 Problem Bipolar I disorder, most recent episode (or curr ent) mixed, moderate F31.62 Active 92543999 Problem Reactive airway disease J45.909 Active 442730358050 Problem Anxiety F41.9 Active 12734738 Problem Insomnia, unspecified type G47.00 Act sharon 018470032 Problem Essential hypertension I10 Active 26706355 Problem Morbid obesity E66.01 Active 34281 6002 Problem Skin cancer C44.90 Active 71901517 7 Problem DM neuro manif type II E11.49 Active 63202154 Problem Mild cognitive impairment G31.84 Acti ve 312410607 Problem Benign prostatic hyperplasia with lower urinary tract symptoms, unspecified morphology N40.1 Active 81610 6007 Problem Chronic pain G89.29 Active 7464660 1 Problem Diabetes E11.9 Active 83377878 Problem Retinal edema H35.81 Active 639741 6 Problem Anemia of chronic illness D63.8 Acti ve 741416740 Problem Falling R29.6 Active 995898235 Problem Pressure ulcer of other site, stage 3 L89.893 Active 854677269 Problem 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 Active 082083746 Problem Eye exam abnormal R93.8 Active 16 1500323 Problem Pure hypercholesterolemia E78.00 Acti ve 636526256 Problem Dysuria R30.0 Active 65823707 Problem Bipolar disorder, in partial remission, most rec ent episode depressed F31.75 Active 64582836 Problem Hypokalemia E87.6 Active 38888063 Problem Other iron deficiency anemia D50.8 A ctive 25261739 Problem Eustachian tube dysfunction, unspecified laterality H69.80 Active 99810365 Problem Primary osteoarthritis of right knee M17.11 Active 034792885129142 Problem Cough R05 Active 49959884 Problem Bipolar disorder F31.9 Active 137 05735 Problem Chronic diastolic (congestive) heart failure I50.3 2 Active 030933912 Problem Psychophysiological insomnia F51.04 A ctive 977637115 Problem Gastroesophageal reflux disease without esophagitis K21.9 Active 302369315 Problem Polyneuropathy associated with underlying disease G63 Active 660538604 Problem Other secondary acute gout, 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 0 Active 403076904 Problem Diabetic polyneuropathy associated with type 2 d iabetes mellitus E11.42 Active 87521824 Problem Chronic lymphocytic leukemia C91.10 A ctive 69496763 Problem Bilateral primary osteoarthritis of knee M17.0 Active 903475978 Problem Type 2 diabetes mellitus with diabetic neuropathy, uns pecified E11.40 Active 43812163 Problem nursing home (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 Z79.4 Active 105211372 Problem Lymphocytosis D72.820 Active 012628 09 Problem Mood disorder F39 Active 140719 05 Problem Bipolar I disorder, most recent episode depressed, moderat e F31.32 Active [id number] ALLERGIES No Information ENCOUNTERS Encounter Location Date Diagnosis [facility] [address] [facility] [id number] [address] [place] [id number] Dec, [facility] [address] [facility] [id number] [address] [place] [address] Dec, Chronic pain G89.29 [facility] [address] [facility] [id number] [address] [place] [phone] Dec, [facility] [address] [id number] [address] [place] [address] Dec, [facility] [address] [facility] [id number] [address] [place] [address] Dec, Gastroesophageal reflux dise ase without esophagitis K21.9 and Pure hypercholesterolemia E78.00 [facility] [address] [facility] [id number] [address] [place] [phone] Dec, Mood disorder F39 [facility] [address] [facility] [id number] [address] [place] [id number] 31 Nov, 2019 Other secondary acute gout, 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 [facility] [address] [facility] [id number] [address] [place] [address] Nov, Gastroesophageal reflux dise ase without esophagitis K21.9 [facility] [address] [facility] [id number] [address] [place] [address] Nov, Chronic pain G89.29 [facility] [address] [facility] [id number] [address] [place] [address] Nov, Bipolar I disorder, most rec ent episode depressed, moderate F31.32 ; Anxiety F41.9 and Mild cognitive impairment G31.84 [place] [address] [facility] [id number] [address] [place] [address] Nov, [place] [address] [facility] [id number] [address] [place] [address] Nov, Syncope, unspecified syncope type R55 [place] [address] [facility] [id number] [address] [place] [address] Nov, Mood disorder F39 [place] [address] [facility] [id number] [address] [place] [address] Oct, Chronic pain G89.29 [facility] [address] [facility] [id number] [address] [place] [id number] Oct, [facility] [address] [facility] [id number] [address] [place] [id number] Oct, Mood disorder F39 [facility] [address] [facility] [id number] [address] [place] [address] Oct, [place] [address] [facility] [id number] [address] [place] [phone] Oct, Bipolar disorder, in partial remission, most recent episode depressed F31.75 and Mild cognitive impairment G31.84 [place] [address] [facility] [id number] [address] [place] [address] Oct, Mood disorder F39 [facility] [address] [id number] [address] [place] [phone] Sep, [facility] [address] [id number] [address] [place] [id number] Sep, Mood disorder F39 [facility] [address] [id number] [address] [place] [address] Sep, Bipolar disorder, in partial remission, most recent episode depressed F31.75 and Mild cognitive impairment G31.84 [facility] [address] [id number] [address] [place] [id number] Sep, Mood disorder F39 [facility] [address] [id number] [address] [place] [address] Sep, [facility] [address] [id number] [address] [place] [address] Sep, Mood disorder F39 [facility] [address] [id number] [address] [place] [id number] Sep, [facility] [address] [id number] [address] [place] [address] Aug, Mood disorder F39 [facility] [address] [id number] [address] [place] [address] Aug, [facility] [address] [id number] [address] [place] [address] Aug, [facility] [address] [id number] [address] [place] [phone] Aug, [facility] [address] [id number] [address] [place] [address] Aug, [facility] [address] [id number] [address] [place] [phone] Aug, [facility] [address] [id number] [address] [place] [phone] Aug, [facility] [address] [id number] [address] [place] [address] Aug, [facility] [address] [id number] [address] [place] [address] Aug, Essential hypertension I10 [facility] [address] [id number] [address] [place] [address] Aug, Bipolar disorder, in partial remission, most recent episode depressed F31.75 and Mild cognitive impairment G31.84 [facility] [address] [id number] [address] [place] [id number] Aug, Mood disorder F39 [facility] [address] [id number] [address] [place] [address] Aug, [facility] [address] [id number] [address] [place] [address] Aug, Bipolar disorder, in partial remission, most recent episode depressed F31.75 and Mild cognitive impairment G31.84 [facility] [address] [id number] [address] [place] [address] Jul, Bipolar disorder, in partial remission, most recent episode depressed F31.75 and Mild cognitive impairment G31.84 [facility] [address] [id number] [address] [place] [id number] Jul, Psychophysiological insomnia F51.04 [facility] [address] [id number] [address] [place] [phone] Jul, [facility] [address] [id number] [address] [place] [address] Jul, [facility] [address] [id number] [address] [place] [address] Jul, [facility] [address] [id number] [address] [place] [address] Jul, [facility] [address] [id number] [address] [place] [address] Jul, [place] [address] [facility] [id number] [address] [place] [address] Jul, [place] [address] [facility] [id number] [address] [place] [address] Jul, Bipolar disorder, in partial remission, most recent episode depressed F31.75 and Mild cognitive impairment G31.84 [place] [address] [place] [id number] [address] [place] [address] Jul, Chronic pain G89.29 ; Diabet es E11.9 ; Essential hypertension I10 ; Ill feeling R68.89 ; Local infection of the skin and subcutaneous tissue, unspecified L08.9 and Other injury of unspecified body region, initial encounter T14.8XXA [place] [address] [place] [id number] [address] [place] [address] Jun, Bipolar disorder, in partial remission, most recent episode depressed F31.75 and Mild cognitive impairment G31.84 [place] [address] [facility] [id number] [address] [place] [address] Jun, [place] [address] [facility] [id number] [address] [place] [address] Jun, Bipolar disorder, in partial remission, most recent episode depressed F31.75 and Mild cognitive impairment G31.84 [place] [address] [place] [id number] [address] [place] [address] Jun, Psychophysiological insomnia F51.04 [place] [address] [facility] [id number] [address] [place] [address] Jun, Psychophysiological insomnia F51.04 ; Chronic pain G89.29 ; Bipolar I disorder, most recent episode (or current) mixed, moderate F31.62 ; 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 ; Polyneuropathy associated with underlying disease G63 ; Type 2 diabetes mellitus with diabetic neuropathy, unspecified E11.40 ; 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.4 and Hyperglycemia R73.[address] [id number] [address] [place] [address] Jun, Bipolar disorder, in partial remission, most recent episode depressed F31.75 and Mild cognitive impairment G31.84 [facility] [address] [id number] [address] [place] [id number] Jun, [facility] [address] [facility] [id number] [address] [place] [address] Jun, Bipolar disorder F31.9 [facility] [address] [facility] [id number] [address] [place] [address] May, Bipolar disorder, in partial remission, most recent episode depressed F31.75 and Mild cognitive impairment G31.84 [facility] [address] [facility] [id number] [address] [place] [address] May, [facility] [address] [facility] [id number] [address] [place] [address] Apr, Chronic pain G89.29 and Bipo lar disorder F31.9 [facility] [address] [id number] [address] [place] [address] Mar, Bipolar disorder F31.9 and C hronic pain G89.29 [facility] [address] [facility] [id number] [address] [place] [address] Feb, Bipolar disorder F31.9 [facility] [address] [id number] [address] [place] [address] Feb, Cellulitis of right upper ex tremity L03.113 and Skin abrasion T14.8XXA [facility] [address] [id number] [address] [place] [id number] Feb, Bipolar disorder, in partial remission, most recent episode depressed F31.75 and Mild cognitive impairment G31.84 [facility] [address] [id number] [address] [place] [address] Feb, Chronic pain G89.29 [facility] [address] [facility] [id number] [address] [place] [address] Feb, Bipolar disorder, in partial remission, most recent episode depressed F31.75 and Mild cognitive impairment G31.84 [facility] [address] [id number] [address] [place] [address] January, Bipolar disorder, in partial remission, most recent episode depressed F31.75 and Mild cognitive impairment G31.84 [facility] [address] [id number] [address] [place] [address] January, Chronic pain G89.29 and Bipo lar disorder F31.9 [facility] [address] [id number] [address] [place] [address] January, Bipolar disorder, in partial remission, most recent episode depressed F31.75 and Mild cognitive impairment G31.84 [facility] [address] [id number] [address] [place] [id number] Dec, [facility] [address] [id number] [address] [place] [phone] Dec, Chronic pain G89.29 and Bipo lar disorder F31.9 [facility] [address] [id number] [address] [place] [id number] Dec, Edema of both lower extremit ies R60.0 [facility] [address] [id number] [address] [place] [address] Dec, Bipolar disorder F31.9 [facility] [address] [id number] [address] [place] [address] Dec, Bipolar disorder, in partial remission, most recent episode depressed F31.75 and Mild cognitive impairment G31.84 [facility] [address] [id number] [address] [place] [address] Nov, [facility] [address] [id number] [address] [place] [address] Nov, Chronic pain G89.29 [facility] [address] [id number] [address] [place] [address] Nov, Bipolar disorder, in partial remission, most recent episode depressed F31.75 and Mild cognitive impairment G31.84 [place] [address] [place] [id number] [address] [place] [address] Nov, Bipolar disorder F31.9 [place] [address] [place] [id number] [address] [place] [address] 04 Nov, 2018 [facility] ; Polyneuropathy associated [...] unspecified morphology N40.1 and Essential hypertension I10 [place] [id number] [place] [address] Oct, Chronic pain G89.29 [place] [address] [place] [id number] [address] [place] [address] 18 Oct, 2018 Diabetes E11.9 [place] [address] [place] [id number] [address] [place] [id number] Oct, Bipolar I disorder, most rec ent episode (or current) mixed, moderate F31.62 and Mild cognitive impairment G31.84 [place] [address] [place] [id number] [address] [place] [address] Oct, Bipolar I disorder, most rec ent episode (or current) mixed, moderate F31.62 and Mild cognitive impairment G31.84 [place] [address] [place] [id number] [address] [place] [address] Sep, Bipolar I disorder, most rec ent episode (or current) mixed, moderate F31.62 and Mild cognitive impairment G31.84 [place] [address] [place] [id number] [address] [place] [id number] Sep, [facility] [address] [place] [id number] [address] [place] [address] Sep, Diabetes E11.9 ; Hypoxia R09 .02 ; Hyperglycemia R73.9 ; Therapeutic drug monitoring Z51.81 ; BMI 50.0-59.9, adult Z68.43 and Skin cancer C44.90 [place] [address] [place] [id number] [place] [address] Sep, Chronic pain G89.29 [place] [address] [place] [id number] [place] [address] Sep, Bipolar I disorder, most rec ent episode (or current) mixed, moderate F31.62 [place] [address] [place] [id number] [place] [phone] Sep, [place] [address] [place] [id number] [place] [phone] Sep, [place] [address] [place] [id number] [address] [place] [address] Aug, Chronic pain G89.29 [place] [address] [place] [id number] [address] [place] [address] Aug, Bipolar I disorder, most rec ent episode (or current) mixed, moderate F31.62 [place] [address] [place] [id number] [address] [place] [address] Aug, Bipolar I disorder, most rec ent episode (or current) mixed, moderate F31.62 and Mild cognitive impairment G31.84 [place] [address] [place] [id number] [address] [place] [address] Jul, [place] [address] [place] [id number] [address] [place] [address] Jul, Chronic pain G89.29 [facility] [address] [place] [id number] [address] [place] [address] Jul, Bipolar I disorder, most rec ent episode (or current) mixed, moderate F31.62 and Mild cognitive impairment G31.84 [place] [address] [facility] [id number] [address] [place] [address] Jul, Bipolar I disorder, most rec ent episode (or current) mixed, moderate F31.62 and MCI (mild cognitive impairment) G31.84 [place] [id number] [facility] [id number] [address] [place] [address] Jul, [facility] [address] [facility] [id number] [address] [place] [address] Jul, [place] [address] [place] [id number] [place] [phone] Jul, Bipolar I disorder, most rec ent episode (or current) mixed, moderate F31.62 [place] [address] [place] [id number] [address] [place] [address] Jul, Chronic pain G89.29 [place] [address] [facility] [id number] [address] [place] [address] Jun, Bipolar I disorder, most rec ent episode (or current) mixed, moderate F31.62 [place] [address] [place] [id number] [address] [place] [address] Jun, Pre-procedure lab exam Z01.8 12 [place] [address] [place] [id number] [address] [place] [address] Jun, [facility] [address] [id number] [place] [id number] Jun, [place] [address] [facility] [id number] [address] [place] [address] Jun, [place] [address] [place] [id number] [address] [place] [address] Jun, Forgetfulness R68.89 ; Pre-s yncope R55 ; Localized edema R60.0 ; Other iron deficiency anemia D50.8 and BMI 50.0-59.9, adult Z68.43 [facility] [address] [facility] [id number] [address] [place] [address] Jun, Chronic pain G89.29 [facility] [address] [facility] [id number] [address] [place] [address] Jun, Chronic pain G89.29 [facility] [address] [facility] [id number] [address] [place] [address] Jun, Bipolar I disorder, most rec ent episode (or current) mixed, moderate F31.62 [facility] [address] [facility] [id number] [address] [place] [address] May, Chronic pain G89.29 [facility] [address] [facility] [id number] [address] [place] [address] Apr, [place] [address] [facility] [id number] [address] [place] [address] Apr, Chronic pain G89.29 [facility] [address] [facility] [id number] [address] [place] [address] Apr, Primary osteoarthritis of ri ght knee M17.11 [facility] [address] [facility] [id number] [address] [place] [address] Mar, [facility] [address] [facility] [id number] [address] [place] [address] Mar, BMI 50.0-59.9, adult Z68.43 and Bipolar disorder, in partial remission, most recent episode depressed F31.75 [facility] [address] [facility] [id number] [address] [place] [address] Mar, Diabetes E11.9 ; Pure hyperc holesterolemia E78.00 ; Essential hypertension I10 ; Nausea with vomiting, unspecified R11.2 and Headache, unspecified headache type R51 [facility] [address] [facility] [id number] [address] [place] [phone] Mar, Bipolar I disorder, most rec ent episode (or current) mixed, moderate F31.62 [facility] [address] [id number] [address] [place] [id number] 16 Mar, 2018 Bipolar I disorder, most rec ent episode (or current) mixed, moderate F31.62 [facility] [address] [facility] [id number] [address] [place] [address] Mar, Chronic pain G89.29 [facility] [address] [facility] [id number] [address] [place] [address] Mar, Bipolar I disorder, most rec ent episode (or current) mixed, moderate F31.62 [facility] [address] [facility] [id number] [address] [place] [id number] Feb, Bipolar I disorder, most rec ent episode (or current) mixed, moderate F31.62 [facility] [address] [facility] [id number] [address] [place] [address] Feb, Chronic pain G89.29 [facility] [address] [facility] [id number] [address] [place] [address] Feb, Decubitus ulcer of right josselin t, stage 3 L89.893 and BMI 50.0-59.9, adult Z68.43 [facility] [address] [facility] [id number] [address] [place] [phone] Feb, Bipolar I disorder, most rec ent episode (or current) mixed, moderate F31.62 [facility] [address] [facility] [id number] [address] [place] [id number] Feb, [facility] [address] [facility] [id number] [address] [place] [id number] January, [facility] [address] [facility] [id number] [address] [place] [phone] January, Chronic pain G89.29 [facility] [address] [facility] [id number] [address] [place] [id number] January, Bipolar I disorder, most rec ent episode (or current) mixed, moderate F31.62 [facility] [address] [place] [id number] [address] [place] [id number] January, Bipolar I disorder, most rec ent episode (or current) mixed, moderate F31.62 [facility] [address] [place] [id number] [address] [place] [id number] Dec, Bipolar I disorder, most rec ent episode (or current) mixed, moderate F31.62 and BMI 50.0-59.9, adult Z68.43 [facility] [address] [id number] Dec, Bipolar I disorder, most rec ent episode (or current) mixed, moderate F31.62 [place] [address] [id number] Dec, Chronic pain G89.29 [facility] [address] [id number] Dec, DM neuro manif type II E11.4 9 ; Right flank pain R10.9 ; nursing home 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 Z79.891 ; Encounter for medication monitoring Z51.81 and BMI 50.0-59.9, adult Z68.43 [place] [address] [address] Dec, Bipolar I disorder, most rec ent episode (or current) mixed, moderate F31.62 [place] [address] [place] [id number] [place] [address] Nov, Bipolar I disorder, most rec ent episode (or current) mixed, moderate F31.62 [place] [address] [place] [id number] [address] [place] [address] Nov, Chronic pain G89.29 [place] [address] [place] [id number] [place] [address] Nov, Bipolar I disorder, most rec ent episode (or current) mixed, moderate F31.62 [place] [address] [place] [id number] [place] [address] Nov, Hypokalemia E87.6 [place] [address] [place] [id number] [place] [phone] Nov, Bipolar I disorder, most rec ent episode (or current) mixed, moderate F31.62 [place] [address] [address] Oct, Chronic pain G89.29 [place] [address] [address] Oct, BMI 50.0-59.9, adult Z68.43 and Bipolar I disorder, most recent episode (or current) mixed, moderate F31.62 [place] [address] [address] Oct, Bipolar I disorder, most rec ent episode (or current) mixed, moderate F31.62 [place] [address] [address] Oct, [place] [address] [address] Oct, Hypokalemia E87.6 [place] [address] [place] [id number] [place] [address] Oct, DM neuro manif type II E11.4 9 [place] [address] [address] Oct, Bipolar I disorder, most rec ent episode (or current) mixed, moderate F31.62 [place] [address] [address] Oct, Bipolar I disorder, most rec ent episode (or current) mixed, moderate F31.62 [place] [address] [place] [id number] [place] [address] 14 Oct, 2017 Hyperkalemia E87.5 ; Falling R29.6 ; BMI 50.0-59.9, adult Z68.43 and Acute left ankle pain M25.572 [place] [id number] [place] [address] 08 Oct, 2017 DM neuro manif type II E11.4 9 [place] [address] [place] [id number] [address] [place] [address] Oct, [place] [address] [place] [id number] [place] [address] Sep, Chronic pain G89.29 [place] [address] [place] [id number] [address] [place] [address] Sep, [place] [address] [place] [id number] [place] [address] Sep, Bilateral primary osteoarthr itis of knee M17.0 [place] [address] [address] Sep, Generalized edema R60.1 [place] [address] [address] 16 Sep, 2017 Bipolar I disorder, most rec ent episode (or current) mixed, moderate F31.62 [place] [address] [address] 15 Sep, 2017 Hypoxia R09.02 ; Other hyper volemia E87.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 ; Anemia of chronic illness D63.8 and BMI 50.0- 59.9, adult Z68.43 [place] [address] [address] Sep, [place] [address] [place] [id number] [place] [address] Sep, Bipolar I disorder, most rec ent episode (or current) mixed, moderate F31.62 [place] [address] [place] [address] Aug, Chronic pain G89.29 [facility] [address] [facility] [id number] [address] [place] [address] Aug, Generalized edema R60.1 [facility] [address] [facility] [id number] [address] [place] [address] Aug, [facility] [address] [facility] [id number] [address] [place] [address] Aug, [facility] [address] [facility] [id number] [address] [place] [address] 14 Aug, 2017 Bipolar I disorder, most rec ent episode (or current) mixed, moderate F31.62 [place] [id number] [place] [id number] [place] [address] 07 Aug, 2017 Bipolar I disorder, most rec ent episode (or current) mixed, moderate F31.62 [place] [address] [place] [id number] [address] [place] [address] Aug, Chronic pain G89.29 [facility] [address] [facility] [id number] [address] [place] [address] 30 Jul, 2017 Bipolar I disorder, most rec ent episode (or current) mixed, moderate F31.62 [facility] [address] [facility] [id number] [address] [place] [address] Jul, Bipolar I disorder, most rec ent episode (or current) mixed, moderate F31.62 and BMI 60.0-69.9, adult Z68.44 [facility] [address] [facility] [id number] [address] [place] [address] 16 Jul, 2017 Bipolar I disorder, most rec ent episode (or current) mixed, moderate F31.62 [facility] [address] [facility] [id number] [address] [place] [address] 06 Jul, 2017 Chronic pain G89.29 [facility] [address] [place] [id number] [address] [place] [address] Jul, Bipolar I disorder, most rec ent episode (or current) mixed, moderate F31.62 [facility] [address] [facility] [id number] [address] [place] [address] Jun, Polyneuropathy associated wi th underlying disease G63 and Diabetes E11.9 [facility] [address] [facility] [id number] [address] [place] [address] 16 Jun, 2017 Bipolar I disorder, most rec ent episode (or current) mixed, moderate F31.62 [facility] [address] [facility] [id number] [address] [place] [address] Jun, Chronic pain G89.29 [facility] [address] [facility] [id number] [address] [place] [address] May, Bipolar I disorder, most rec ent episode (or current) mixed, moderate F31.62 [facility] [address] [place] [id number] [address] [place] [address] May, Bipolar I disorder, most rec ent episode (or current) mixed, moderate F31.62 [facility] [address] [facility] [id number] [address] [place] [address] 20 May, 2017 Diabetic polyneuropathy asso ciated with type 2 diabetes mellitus E11.42 [facility] [address] [facility] [id number] [address] [place] [address] 18 May, 2017 Bipolar I disorder, most rec ent episode (or current) mixed, moderate F31.62 [facility] [address] [facility] [id number] [address] [place] [address] 13 May, 2017 Bipolar I disorder, most rec ent episode (or current) mixed, moderate F31.62 [facility] [address] [facility] [id number] [address] [place] [address] May, Chronic pain G89.29 [facility] [address] [facility] [id number] [address] [place] [id number] Apr, Bipolar I disorder, most rec ent episode (or current) mixed, moderate F31.62 [facility] [address] [id number] [address] [place] [address] Apr, [facility] [address] [id number] [address] [place] [address] Apr, Chronic pain G89.29 and DM n euro manif type II E11.49 [facility] [address] [id number] [address] [place] [id number] Apr, [facility] [address] [id number] [address] [place] [address] Apr, Bipolar I disorder, most rec ent episode (or current) mixed, moderate F31.62 [facility] [address] [facility] [id number] [address] [place] [address] Apr, Chronic pain G89.29 [facility] [address] [facility] [id number] [address] [place] [address] Apr, Iliotibial band syndrome, le ft M76.32 [facility] [address] [facility] [id number] [address] [place] [address] Apr, Bipolar I disorder, most rec ent episode (or current) mixed, moderate F31.62 [facility] [address] [facility] [id number] [address] [place] [address] Mar, Bipolar I disorder, most rec ent episode (or current) mixed, moderate F31.62 [facility] [address] [facility] [id number] [address] [place] [address] Mar, Bipolar I disorder, most rec ent episode (or current) mixed, moderate F31.62 [facility] [address] [facility] [id number] [address] [place] [address] Mar, [facility] [address] [facility] [id number] [address] [place] [address] Mar, Bipolar I disorder, most rec ent episode (or current) mixed, moderate F31.62 [facility] [address] [facility] [id number] [address] [place] [address] Mar, Chronic pain G89.29 [facility] [address] [facility] [id number] [address] [place] [address] Mar, Bipolar I disorder, most rec ent episode (or current) mixed, moderate F31.62 [facility] [address] [facility] [id number] [address] [place] [address] Mar, Bipolar I disorder, most rec ent episode (or current) mixed, moderate F31.62 [facility] [address] [facility] [id number] [address] [place] [address] Mar, Acute pain of left knee M25. 562 ; Left hip pain M25.552 ; Generalized edema R60.1 and Tongue swelling R22.0 [facility] [address] [facility] [id number] [address] [place] [address] Mar, [facility] [address] [facility] [id number] [address] [place] [address] Feb, Chronic pain G89.29 [facility] [address] [facility] [id number] [address] [place] [id number] Feb, Diabetes E11.9 [facility] [address] [facility] [id number] [address] [place] [address] January, Chronic pain G89.29 [facility] [address] [facility] [id number] [address] [place] [id number] January, [facility] [address] [facility] [id number] [address] [place] [address] January, Bipolar I disorder, most rec ent episode (or current) mixed, moderate F31.62 [facility] [address] [facility] [id number] [address] [place] [address] Dec, Bipolar I disorder, most rec ent episode (or current) mixed, moderate F31.62 [facility] [address] [facility] [id number] [address] [place] [address] 24 Apr, 2017 Chronic pain G89.29 [facility] [address] [id number] [address] [place] [address] Dec, Bipolar I disorder, most rec ent episode (or current) mixed, moderate F31.62 [facility] [address] [facility] [id number] [address] [place] [address] Dec, Diabetes E11.9 ; Essential h ypertension I10 ; Chronic pain G89.29 and Morbid obesity E66.01 [facility] [address] [facility] [id number] [address] [place] [address] Dec, [facility] [address] [facility] [id number] [address] [place] [address] Dec, Bipolar I disorder, most rec ent episode (or current) mixed, moderate F31.62 [facility] [address] [facility] [id number] [address] [place] [address] Dec, Bipolar I disorder, most rec ent episode (or current) mixed, moderate F31.62 [facility] [address] [facility] [id number] [address] [place] [address] Nov, Chronic pain G89.29 [facility] [address] [facility] [id number] [address] [place] [id number] Nov, Bipolar I disorder, most rec ent episode (or current) mixed, moderate F31.62 [facility] [address] [facility] [id number] [address] [place] [phone] Nov, [facility] [address] [facility] [id number] [address] [place] [address] Nov, Bipolar I disorder, most rec ent episode (or current) mixed, moderate F31.62 [facility] [address] [facility] [id number] [address] [place] [address] Nov, Bipolar I disorder, most rec ent episode (or current) mixed, moderate F31.62 [facility] [address] [facility] [id number] [address] [place] [address] Nov, [facility] [address] [id number] [address] [place] [id number] Nov, [facility] [address] [id number] [address] [place] [address] Nov, [facility] [address] [facility] [id number] [address] [place] [address] Oct, Chronic pain G89.29 [facility] [address] [facility] [id number] [address] [place] [id number] Oct, Bipolar I disorder, most rec ent episode (or current) mixed, moderate F31.62 [facility] [address] [id number] [address] [place] [id number] Oct, [facility] [address] [facility] [id number] [address] [place] [address] Oct, Chronic pain G89.29 ; Diabet es E11.9 ; Anxiety F41.9 and 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 [facility] [address] [facility] [id number] [address] [place] [address] Oct, [facility] [address] [facility] [id number] [address] [place] [id number] Oct, Diabetes E11.9 [facility] [address] [facility] [id number] [address] [place] [address] Oct, Bipolar I disorder, most rec ent episode (or current) mixed, moderate F31.62 [facility] [address] [facility] [id number] [address] [place] [address] Sep, Chronic pain G89.29 [facility] [address] [facility] [id number] [address] [place] [address] Sep, Chronic pain G89.29 [facility] [address] [facility] [id number] [address] [place] [address] Aug, Chronic pain G89.29 [facility] [address] [facility] [id number] [address] [place] [address] Jul, [facility] [address] [place] [id number] [address] [place] [address] Jul, Diabetes E11.9 [facility] [address] [place] [id number] [address] [place] [address] Jul, Chronic pain G89.29 [place] [address] [place] [id number] [address] [place] [address] Jul, Bipolar I disorder, most rec ent episode (or current) mixed, moderate F31.62 [place] [address] [place] [id number] [place] [address] Jun, Bipolar I disorder, most rec ent episode (or current) mixed, moderate F31.62 [place] [address] [place] [id number] [address] [place] [address] Jun, [place] [address] [place] [id number] [address] [place] [address] Jun, Bipolar I disorder, most rec ent episode (or current) mixed, moderate F31.62 [place] [address] [place] [id number] [address] [place] [address] May, Insomnia, unspecified type G 47.00 [place] [address] [place] [id number] [address] [place] [address] May, Bipolar I disorder, most rec ent episode (or current) mixed, moderate F31.62 [place] [address] [place] [id number] [address] [place] [address] 14 May, 2016 [place] [address] [place] [id number] [place] [id number] 08 May, 2016 Bipolar I disorder, most rec ent episode (or current) mixed, moderate F31.62 [place] [address] [place] [id number] [address] [place] [address] May, Diabetes E11.9 and Essential hypertension I10 [facility] [address] [id number] [address] [place] [address] Apr, Chronic pain G89.29 [facility] [address] [facility] [id number] [address] [place] [address] Apr, Bipolar I disorder, most rec ent episode (or current) mixed, moderate F31.62 [place] [id number] [facility] [id number] [address] [place] [address] Apr, [facility] [address] [facility] [id number] [address] [place] [id number] Apr, [place] [address] [facility] [id number] [address] [place] [address] Mar, Chronic pain G89.29 ; Headac he, unspecified headache type R51 ; Neuropathy G62.9 ; Pain of right hip joint M25.551 and Essential hypertension I10 [place] [address] [facility] [id number] [address] [place] [address] Mar, Chronic pain G89.29 [place] [id number] [facility] [id number] [address] [place] [address] Mar, Bipolar I disorder, most rec ent episode (or current) mixed, moderate F31.62 [place] [id number] [facility] [id number] [address] [place] [address] Feb, Bipolar I disorder, most rec ent episode (or current) mixed, moderate F31.62 and Insomnia, unspecified type G47.00 [place] [address] [id number] [address] [place] [address] Feb, Chronic pain G89.29 [place] [address] [facility] [id number] [address] [place] [address] Feb, Bipolar I disorder, most rec ent episode (or current) mixed, moderate F31.62 [place] [address] [facility] [id number] [address] [place] [address] January, Bipolar I disorder, most rec ent episode (or current) mixed, moderate F31.62 [facility] [address] [id number] [address] [place] [address] January, Chronic pain G89.29 [facility] [address] [facility] [id number] [address] [place] [address] January, Chronic pain G89.29 and Esse ntial hypertension I10 [facility] [address] [id number] [address] [place] [address] January, Bipolar I disorder, most rec ent episode (or current) mixed, moderate F31.62 [facility] [address] [id number] [address] [place] [address] Dec, [facility] [address] [facility] [id number] [address] [place] [address] Dec, [facility] [address] [facility] [id number] [address] [place] [address] Dec, [facility] [address] [facility] [id number] [address] [place] [address] Dec, [facility] [address] [facility] [id number] [address] [place] [address] Nov, Reactive airway disease J45. 909 [facility] [address] [facility] [id number] [address] [place] [address] Nov, [facility] [address] [id number] [address] [place] [address] Nov, [facility] [address] [facility] [id number] [address] [place] [address] Nov, [facility] [address] [facility] [id number] [address] [place] [address] Nov, [facility] [address] [facility] [id number] [address] [place] [address] Nov, Onychomycosis B35.1 ; Hammer toe M20.40 ; [place] or callus L84 and DM neuro manif type II E11.49 [facility] [address] [place] [id number] [address] [place] [address] Nov, Chronic pain G89.29 ; Leukoc ytosis D72.829 and Diabetes E11.9 [facility] [address] [facility] [id number] [address] [place] [address] Nov, [facility] [address] [place] [id number] [address] [place] [address] Oct, Bronchitis J40 [facility] [address] [place] [id number] [address] [place] [address] Oct, [place] [address] [address] Oct, [place] [address] [address] Oct, Mastoiditis, unspecified lat erality H70.90 and Type 2 diabetes mellitus with complication E11.8 [place] [address] [place] [id number] [address] [place] [address] Sep, [place] [address] [address] Sep, Dysuria R30.0 ; Cough R05 ; Benign prostatic hyperplasia with lower urinary tract symptoms, unspecified morphology N40.1 ; Hypokalemia E87.6 and Eustachian tube dysfunction, unspecified laterality H69.80 [place] [id number] [place] [address] Sep, Moderate mixed bipolar I dis order F31.62 [place] [address] [address] Sep, Hypokalemia E87.6 [place] [address] [place] [id number] [address] [place] [address] Sep, [place] [address] [address] Sep, Upper respiratory tract infe ction, unspecified type J06.9 [facility] [address] [id number] [address] [place] [address] Aug, [facility] [address] [id number] [address] [place] [id number] Aug, Dysuria R30.0 [facility] [address] [id number] [address] [place] [id number] Aug, [facility] [address] [id number] [address] [place] [id number] Jul, [facility] [address] [id number] [address] [place] [id number] Jul, [facility] [address] [id number] [address] [place] [id number] Jul, [facility] [address] [id number] [address] [place] [id number] Jul, [facility] [address] [id number] [address] [place] [id number] Jun, [facility] [address] [id number] [address] [place] [id number] Jun, [facility] [address] [id number] [address] [place] [phone] Jun, [facility] [address] [id number] [address] [place] [id number] May, [facility] [address] [id number] [address] [place] [id number] May, Bipolar I disorder, most rec ent episode (or current) mixed, moderate 296.62 [facility] [address] [id number] [address] [place] [id number] 16 May, 2015 [facility] [address] [id number] [address] [place] [id number] May, Bipolar I disorder, most rec ent episode (or current) mixed, moderate 296.62 and Major depressive disorder, recurrent episode, severe, specified as with psychotic behavior 296.34 [facility] [address] [facility] [id number] [address] [place] [id number] May, Bipolar I disorder, most rec ent episode (or current) mixed, moderate 296.62 [facility] [address] [facility] [id number] [address] [place] [id number] May, [facility] [address] [facility] [id number] [address] [place] [id number] Apr, [facility] [address] [facility] [id number] [address] [place] [id number] Apr, [facility] [address] [place] [id number] [address] [place] [id number] Apr, Unspecified disorder of kidn ey and ureter 593.9 and Diabetes mellitus type 2, uncontrolled 250.02 [facility] [address] [place] [id number] [address] [place] [id number] Apr, [facility] [address] [facility] [id number] [address] [place] [id number] Apr, [facility] [address] [place] [id number] [address] [place] [phone] Apr, [facility] [address] [facility] [id number] [address] [place] [address] Apr, [facility] [address] [place] [id number] [address] [place] [address] Apr, Diabetes mellitus type II, u ncontrolled 250.02 [facility] [address] [facility] [id number] [address] [place] [address] Apr, [facility] [address] [facility] [id number] [address] [place] [address] Mar, [facility] [address] [place] [id number] [address] [place] [address] Mar, [facility] [address] [facility] [id number] [address] [place] [address] Mar, [facility] [address] [place] [id number] [address] [place] [address] Mar, Major depressive disorder, r ecurrent episode, severe, specified as with psychotic behavior 296.34 and Bipolar I disorder, most recent episode (or current) mixed, moderate 296.62 [facility] [id number] [place] [address] Mar, Diabetes 250.00 ; Anuria 788 .5 ; Nausea and vomiting 787.01 and Diarrhea 787.91 [facility] [address] [place] [id number] [address] [place] [address] Mar, Diabetes 250.00 [facility] [address] [place] [id number] [address] [place] [address] Mar, [facility] [address] [place] [id number] [address] [place] [address] Mar, Diabetes 250.00 [facility] [address] [place] [id number] [address] [place] [address] Mar, [facility] [address] [place] [id number] [address] [place] [address] Mar, [facility] [address] [place] [id number] [address] [place] [address] Mar, [facility] [address] [place] [id number] [address] [place] [address] Mar, [facility] [address] [place] [id number] [address] [place] [address] Mar, Bipolar I disorder, most rec ent episode (or current) mixed, moderate 296.62 and Major depressive disorder, recurrent episode, severe, specified as with psychotic behavior 296.34 [facility] [address] [place] [id number] [address] [place] [address] Mar, Magnesium deficiency 275.2 ; Hypokalemia 276.8 ; Nausea & vomiting 787.01 and Diabetes mellitus type 2, uncontrolled 250.02 [place] [address] [address] Feb, [facility] [address] [address] Feb, Bipolar I disorder, most rec ent episode (or current) mixed, moderate 296.62 [place] [address] [address] Feb, Nausea and vomiting 787.01 ; Left elbow pain 719.42 ; Anuria 788.5 and Diabetes 250.00 [place] [address] [address] Feb, [place] [address] [address] Feb, Hypopotassemia 276.8 and Hyp okalemia 276.[address] [address] Feb, Hypopotassemia 276.8 and Hyp okalemia 276.8 [place] [address] [address] Feb, Seborrheic keratoses 702.19 [place] [address] [address] Feb, Hypopotassemia 276.8 and Low magnesium levels 275.2 [place] [address] [address] January, [place] [address] [address] January, [place] [address] [address] January, [place] [address] [address] January, Scalp lesion 709.9 [facility] [address] [id number] [address] [place] [address] January, [facility] [address] [id number] [address] [place] [address] Dec, Tear of medial cartilage or meniscus of knee, current 836.0 and 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 [facility] [address] [id number] [address] [place] [address] Dec, [facility] [address] [id number] [address] [place] [address] Dec, [facility] [address] [id number] [address] [place] [address] Dec, Squamous cell carcinoma, 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 [facility] [address] [id number] [address] [place] [address] Dec, [facility] [address] [id number] [address] [place] [address] Dec, [facility] [address] [id number] [address] [place] [address] Nov, [facility] [address] [id number] [address] [place] [id number] Nov, [facility] [address] [id number] [address] [place] [address] Nov, [facility] [address] [id number] [address] [place] [address] Nov, [facility] [address] [id number] [address] [place] [address] Nov, [facility] [address] [id number] [address] [place] [address] Nov, [facility] [address] [id number] [address] [place] [address] Nov, [facility] [address] [id number] [address] [place] [address], [place] [address] Nov, 2014 [facility] [address] [id number] [address] [place] [address], [place] [address] Nov, 2014 [facility] [address] [id number] [address] [place] [address], [place] [address] Nov, 2014 [facility] [address] [id number] [address] [place] [address], [place] [address] Nov, 2014 [facility] [address] [id number] [address] [place] [address], [place] [address] Nov, 2014 [facility] [address] [id number] [address] [place] [address], [place] [address] Oct, 2014 [facility] [address] [id number] [address] [place] [address], [place] [address] Oct, 2014 [facility] [address] [id number] [address] [place] [address], [place] [address] Oct, 2014 [facility] [address] [id number] [address] [place] [address], [place] [address] Oct, 2014 [facility] [address] [id number] [address] [place] [address], [place] [address] Oct, 2014 [facility] [address] [id number] [address] [place] [address] Oct, 2014 [facility] [address] [id number] [address] [place] [address] Oct, 2014 [facility] [address] [id number] [address] [place] [address], [place] [address] Oct, 2014 [facility] [address] [id number] [address] [place] [address] Oct, 2014 [facility] [address] [id number] [address] [place] [address] Sep, [facility] [address] [id number] [address] [place] [address] Sep, [facility] [address] [id number] [address] [place] [address], [place] [address] Sep, [facility] [address] [id number] [address] [place] [address], [place] [address] Sep, [facility] [address] [id number] [address] [place] [address], [place] [address] Sep, [facility] [address] [id number] [address] [place] [address], [place] [address] Sep, [facility] [address] [id number] [address] [place] [address], [place] [address] Sep, [facility] [address] [id number] [address] [place] [address], [place] [address] Sep, [facility] [address] [id number] [address] [place] [address], [place] [address] Sep, [facility] [address] [id number] [address] [place] [address], [place] [address] Sep, [facility] [address] [id number] [address] [place] [address], [place] [address] Sep, [facility] [address] [id number] [address] [place] [address], [place] [address] Sep, [facility] [address] [id number] [address] [place] [address], [place] [address] Sep, [facility] [address] [id number] [address] [place] [address], [place] [address] Sep, [facility] [address] [id number] [address] [place] [address], [place] [address] Sep, [facility] [address] [id number] [address] [place] [address], [place] [address] Sep, [facility] [address] [id number] [address] [place] [address], [place] [address] Aug, [facility] [address] [id number] [address] [address] Aug, [facility] [address] [id number] [address] [address] Aug, [facility] [address] [id number] [address] [address] Aug, [facility] [address] [id number] [address] [address] Aug, [facility] [address] [id number] [address] [address] Aug, [facility] [address] [id number] [address] [address] Aug, [facility] [address] [id number] [address] [address] Aug, [facility] [address] [id number] [address] [place] [address], [place] [address] Aug, [facility] [address] [id number] [address] [place] [address], [place] [address] Aug, [facility] [address] [id number] [address] [place] [address], [place] [address] Aug, [facility] [place] [address] [place] [id number] Aug, [facility] [address] [id number] [address] [place] [address], [place] [address] Aug, [facility] [address] [id number] [address] [place] [address], [place] [address] Aug, [facility] [address] [id number] [address] [address] Aug, [facility] [address] [id number] [address] [address] Aug, [facility] [address] [id number] [address] [address] Aug, [facility] [address] [id number] [address] [place] [address], [place] [address] Aug, [facility] [address] [id number] [address] [place] [address], [place] [address] Aug, [facility] [address] [id number] [address] [place] [address], [place] [address] Aug, [facility] [address] [id number] [address] [place] [address], [place] [address] Aug, [facility] [address] [id number] [address] [place] [address], [place] [address] Aug, [facility] [address] [id number] [address] [place] [address], [place] [address] Aug, [facility] [address] [id number] [address] [place] [address], [place] [address] Aug, [facility] [address] [id number] [address] [place] [address], [place] [address] Aug, [facility] [address] [id number] [address] [place] [address], [place] [address] Aug, [facility] [address] [id number] [address] [place] [address], [place] [address] Aug, [facility] [address] [id number] [address] [place] [address], [place] [address] Aug, [facility] [address] [id number] [address] [place] [address], [place] [address] Aug, [facility] [address] [id number] [address] [place] [address], [place] [address] Aug, [facility] [address] [id number] [address] [place] [address], [place] [address] Jul, [facility] [address] [id number] [address] [place] [address], [place] [address] Jul, [facility] [address] [id number] [address] [place] [address] Jul, [facility] [address] [id number] [address] [place] [address], [place] [address] Jul, [facility] [address] [id number] [address] [place] [address], [place] [address] Jul, [facility] [address] [id number] [address] [place] [address], [place] [address] Jul, [facility] [address] [id number] [address] [place] [address], [place] [address] Jul, [facility] [address] [id number] [address] [place] [address], [place] [address] Jul, [facility] [address] [id number] [address] [place] [address], [place] [address] Jul, [facility] [address] [id number] [address] [place] [address], [place] [address] Jul, [facility] [address] [id number] [address] [place] [address], [place] [address] Jun, [facility] [address] [id number] [address] [place] [address], [place] [address] Jun, [facility] [address] [id number] [address] [place] [address], [place] [address] Jun, [facility] [address] [id number] [address] [place] [address] Jun, [facility] [address] [id number] [address] [place] [address] Jun, [facility] [address] [id number] [address] [place] [address] Jun, [facility] [address] [id number] [address] [place] [address], [place] [address] Jun, [facility] [address] [id number] [address] [place] [address] Jun, [facility] [address] [id number] [address] [address] Jun, [facility] [address] [id number] [address] [place] [address], [place] [address] Jun, [facility] [address] [id number] [address] [place] [address], [place] [address] 29 May, 2013 [facility] [address] [id number] [address] [place] [address], [place] [address] 29 Sep, 2013 [facility] [address] [id number] [address] [place] [address], [place] [address] 26 May, 2013 [facility] [address] [id number] [address] [place] [address], [place] [address] 26 May, 2013 [facility] [address] [id number] [address] [place] [address], [place] [address] 17 May, 2013 [facility] [address] [id number] [address] [place] [address], [place] [address] 17 May, 2013 [facility] [address] [id number] [address] [place] [address], [place] [address] 15 May, 2013 [facility] [address] [id number] [address] [place] [address], [place] [address] 15 May, 2013 [facility] [address] [id number] [address] [place] [address], [place] [address] 15 May, 2013 [facility] [address] [id number] [address] [place] [address], [place] [address] 15 May, 2013 [facility] [address] [id number] [address] [place] [address], [place] [address] 10 Sep, 2013 [facility] [address] [id number] [address] [place] [address], [place] [address] 10 Sep, 2013 [facility] [address] [id number] [address] [place] [address], [place] [address] 09 Sep, 2013 [facility] [address] [id number] [address] [place] [address], [place] [address] May, [facility] [address] [id number] [address] [address] May, [facility] [address] [id number] [address] [address] May, [facility] [address] [id number] [address] [address] Apr, [facility] [address] [id number] [address] [place] [address], [place] [address] Apr, [facility] [address] [id number] [address] [place] [address], [place] [address] Apr, [facility] [address] [id number] [address] [place] [address], [place] [address] Apr, [facility] [address] [id number] [address] [place] [address], [place] [address] Apr, [facility] [address] [id number] [address] [place] [address], [place] [address] Apr, [facility] [address] [id number] [address] [place] [address], [place] [address] Apr, [facility] [address] [id number] [address] [place] [address], [place] [address] Apr, [facility] [address] [id number] [address] [place] [address], [place] [address] Apr, [facility] [address] [id number] [address] [place] [address], [place] [address] Apr, [facility] [address] [id number] [address] [place] [address], [place] [address] Apr, [facility] [address] [id number] [address] [place] [address], [place] [address] Apr, [facility] [address] [id number] [address] [place] [address], [place] [address] Apr, [facility] [address] [id number] [address] [address] Apr, [facility] [address] [id number] [address] [place] [address], [place] [address] Apr, [facility] [address] [id number] [address] [place] [address], [place] [address] Mar, [facility] [address] [id number] [address] [place] [address], [place] [address] Mar, [facility] [address] [id number] [address] [place] [address], [place] [address] Mar, [facility] [address] [id number] [address] [place] [address], [place] [address] Mar, [facility] [address] [id number] [address] [place] [address], [place] [address] Mar, [facility] [address] [id number] [address] [place] [address], [place] [address] Mar, [facility] [address] [id number] [address] [place] [address], [place] [address] Mar, [facility] [address] [id number] [address] [place] [address], [place] [address] Mar, [facility] [address] [id number] [address] [place] [address], [place] [address] Mar, [facility] [address] [id number] [address] [place] [address], [place] [address] Mar, [facility] [address] [id number] [address] [place] [address], [place] [address] Mar, [facility] [address] [id number] [address] [place] [address], [place] [address] Mar, [facility] [address] [id number] [address] [place] [address], [place] [address] Mar, [facility] [address] [id number] [address] [place] [address], [place] [address] Mar, [facility] [address] [id number] [address] [address] Mar, 2013 [facility] [address] [id number] [address] [address] Mar, 2013 [facility] [address] [id number] [address] [address] Mar, [facility] [address] [id number] [address] [address] Mar, [facility] [address] [id number] [address] [address] Feb, [facility] [address] [id number] [address] [place] [address], [place] [address] Feb, [facility] [address] [id number] [address] [place] [address], [place] [address] Feb, [facility] [address] [id number] [address] [place] [address], [place] [address] Feb, [facility] [address] [id number] [address] [place] [address], [place] [address] Feb, [facility] [address] [id number] [address] [place] [address], [place] [address] Feb, [facility] [address] [id number] [address] [place] [address], [place] [address] Feb, [facility] [address] [id number] [address] [place] [address], [place] [address] Feb, [facility] [address] [id number] [address] [place] [address], [place] [address] Feb, [facility] [address] [id number] [address] [place] [address], [place] [address] Feb, [facility] [address] [id number] [address] [place] [address], [place] [address] Feb, [facility] [address] [id number] [address] [place] [address], [place] [address] Feb, [facility] [address] [id number] [address] [place] [address], [place] [address] Feb, [facility] [address] [id number] [address] [place] [address], [place] [address] Feb, [facility] [address] [id number] [address] [place] [address], [place] [address] January, [facility] [address] [id number] [address] [place] [address], [place] [address] January, [facility] [address] [id number] [address] [place] [address], [place] [address] January, [facility] [address] [id number] [address] [place] [address], [place] [address] January, [facility] [address] [id number] [address] [place] [address], [place] [address] January, [facility] [address] [id number] [address] [place] [address], [place] [address] January, [facility] [address] [id number] [address] [place] [address], [place] [address] January, [facility] [address] [id number] [address] [place] [address], [place] [address] January, [facility] [address] [id number] [address] [place] [address], [place] [address] January, [facility] [address] [id number] [address] [place] [address], [place] [address] January, [facility] [address] [id number] [address] [place] [address], [place] [address] January, [facility] [address] [id number] [address] [place] [address], [place] [address] January, [facility] [address] [id number] [address] [place] [address], [place] [address] January, [facility] [address] [id number] [address] [address] January, [facility] [address] [id number] [address] [address] Dec, [facility] [address] [id number] [address] [address] Dec, [facility] [address] [id number] [address] [place] [address], [place] [address] Dec, [facility] [address] [id number] [address] [place] [address], [place] [address] Dec, [facility] [address] [id number] [address] [place] [address], [place] [address] Dec, [facility] [address] [id number] [address] [place] [address], [place] [address] Dec, [facility] [address] [id number] [address] [place] [address], [place] [address] Dec, [facility] [address] [id number] [address] [place] [address], [place] [address] Dec, [facility] [address] [id number] [address] [place] [address], [place] [address] Dec, [facility] [address] [id number] [address] [place] [address], [place] [address] Dec, [facility] [address] [id number] [address] [place] [address], [place] [address] Nov, [facility] [address] [id number] [address] [place] [address], [place] [address] Nov, [facility] [address] [id number] [address] [place] [address], [place] [address] Nov, [facility] [address] [id number] [address] [place] [address], [place] [address] Nov, [facility] [address] [id number] [address] [place] [address], [place] [address] Nov, [facility] [address] [id number] [address] [address] 08 Nov, 2013 [facility] [address] [id number] [address] [place] [address], [place] [address] Nov, [facility] [address] [id number] [address] [place] [address], [place] [address] Nov, [facility] [address] [id number] [address] [place] [address], [place] [address] Nov, [facility] [address] [id number] [address] [place] [address], [place] [address] Nov, [facility] [address] [id number] [address] [place] [address], [place] [address] Oct, [facility] [address] [id number] [address] [place] [address], [place] [address] Oct, [facility] [address] [id number] [address] [place] [address], [place] [address] Oct, [facility] [address] [id number] [address] [place] [address], [place] [address] Oct, [facility] [address] [id number] [address] [place] [address], [place] [address] Oct, [facility] [address] [id number] [address] [place] [address], [place] [address] Oct, [facility] [address] [id number] [address] [place] [address], [place] [address] 14 Oct, 2013 [facility] [address] [id number] [address] [place] [address], [place] [address] 14 Oct, 2013 [facility] [address] [id number] [address] [place] [address], [place] [address] 05 Oct, 2013 [facility] [address] [id number] [address] [place] [address], [place] [address] Oct, [facility] [address] [id number] [address] [place] [address], [place] [address] 04 Oct, 2013 [facility] [address] [id number] [address] [place] [address], [place] [address] Oct, [facility] [address] [id number] [address] [place] [address], [place] [address] Oct, [facility] [address] [id number] [address] [place] [address], [place] [address] Oct, [facility] [address] [id number] [address] [place] [address], [place] [address] Sep, [facility] [address] [id number] [address] [place] [address], [place] [address] Sep, [facility] [address] [id number] [address] [place] [address], [place] [address] Sep, [facility] [address] [id number] [address] [place] [address], [place] [address] Sep, [facility] [address] [id number] [address] [place] [address], [place] [address] Sep, [facility] [address] [id number] [address] [place] [address], [place] [address] Sep, [facility] [address] [id number] [address] [place] [address], [place] [address] Sep, [facility] [address] [id number] [address] [place] [address], [place] [address] Sep, [facility] [address] [id number] [address] [place] [address], [place] [address] Sep, [facility] [address] [id number] [address] [place] [address], [place] [address] Sep, [facility] [address] [id number] [address] [place] [address], [place] [address] 10 Aug, 2013 [facility] [address] [id number] [address] [place] [address], [place] [address] Aug, [facility] [address] [id number] [address] [place] [address], [place] [address] Jul, [facility] [address] [id number] [address] [place] [address], [place] [address] Jul, [facility] [address] [id number] [address] [place] [address], [place] [address] Jul, [facility] [address] [id number] [address] [place] [address], [place] [address] Jul, [facility] [address] [id number] [address] [place] [address], [place] [address] Jul, [facility] [address] [id number] [address] [place] [address] Jul, [facility] [address] [id number] [address] [place] [address], [place] [address] Jul, [facility] [address] [id number] [address] [place] [address] Jul, [facility] [address] [id number] [address] [place] [address] Jul, [facility] [address] [id number] [address] [place] [address] Jul, [facility] [address] [id number] [address] [place] [address] Jul, [facility] [address] [id number] [address] [place] [address] Jul, [facility] [address] [id number] [address] [place] [address] Jul, [facility] [address] [id number] [address] [place] [address] Jul, [facility] [address] [id number] [address] [place] [address] Jul, [facility] [address] [id number] [address] [place] [address], [place] [address] 05 Jul, 2012 [facility] [address] [id number] [address] [place] [address], [place] [address] Jul, 2012 [facility] [address] [id number] [address] [place] [address], [place] [address] Jul, 2012 [facility] [address] [id number] [address] [place] [address], [place] [address] Jul, 2012 [facility] [address] [id number] [address] [place] [address], [place] [address] Jun, 2012 [facility] [address] [id number] [address] [place] [address], [place] [address] Jun, 2012 [facility] [address] [id number] [address] [place] [address], [place] [address] Jun, 2012 [facility] [address] [id number] [address] [place] [address], [place] [address] Jun, 2012 [facility] [address] [id number] [address] [place] [address], [place] [address] Jun, 2012 [facility] [address] [id number] [address] [place] [address], [place] [address] Jun, 2012 [facility] [address] [id number] [address] [place] [address], [place] [address] Jun, 2012 [facility] [address] [id number] [address] [place] [address], [place] [address] Jun, 2012 [facility] [address] [id number] [address] [place] [address] Jun, [facility] [address] [id number] [address] [place] [address], [place] [address] Jun, [facility] [address] [id number] [address] [place] [address], [place] [address] Jun, [facility] [address] [id number] [address] [place] [address], [place] [address] May, [facility] [address] [id number] [address] [place] [address], [place] [address] 25 May, 2012 [facility] [address] [id number] [address] [place] [address], [place] [address] 19 May, 2012 [facility] [address] [id number] [address] [place] [address], [place] [address] 17 May, 2012 [facility] [address] [id number] [address] [place] [address], [place] [address] 11 May, 2012 [facility] [address] [id number] [address] [place] [address], [place] [address] 10 May, 2012 [facility] [address] [id number] [address] [place] [address], [place] [address] 09 May, 2012 [facility] [address] [id number] [address] [place] [address], [place] [address] 05 May, 2012 [facility] [address] [id number] [address] [place] [address], [place] [address] Apr, [facility] [address] [id number] [address] [place] [address], [place] [address] Apr, [facility] [address] [id number] [address] [place] [address], [place] [address] Apr, [facility] [address] [id number] [address] [place] [address], [place] [address] Apr, [facility] [address] [id number] [address] [place] [address], [place] [address] Apr, [facility] [address] [id number] [address] [place] [address], [place] [address] Mar, [facility] [address] [id number] [address] [place] [address], [place] [address] Mar, [facility] [address] [id number] [address] [place] [address], [place] [address] Mar, [facility] [address] [id number] [address] [place] [address], [place] [address] Mar, [facility] [address] [id number] [address] [place] [address], [place] [address] Mar, [facility] [address] [id number] [address] [place] [address], [place] [address] Mar, [facility] [address] [id number] [address] [place] [address], [place] [address] Mar, [facility] [address] [id number] [address] [place] [address], [place] [address] Mar, [facility] [address] [id number] [address] [place] [address], [place] [address] Feb, [facility] [address] [id number] [address] [place] [address], [place] [address] Feb, [facility] [address] [id number] [address] [place] [address], [place] [address] January, [facility] [address] [id number] [address] [place] [address], [place] [address] January, [facility] [address] [id number] [address] [place] [address], [place] [address] Dec, [facility] [address] [id number] [address] [place] [address], [place] [address] Dec, [facility] [address] [id number] [address] [place] [address], [place] [address] Nov, [facility] [address] [id number] [address] [place] [address], [place] [address] Nov, [facility] [address] [id number] [address] [place] [address], [place] [address] Nov, [facility] [address] [id number] [address] [place] [address], [place] [address] Nov, [facility] [address] [id number] [address] [place] [address], [place] [address] Oct, [facility] [address] [id number] [address] [place] [address], [place] [address] Oct, 2012 [facility] [address] [id number] [address] [place] [address], [place] [address] Oct, [facility] [address] [id number] [address] [place] [address], [place] [address] Oct, 2012 [facility] [address] [id number] [address] [place] [address], [place] [address] 16 Oct, 2012 [facility] [address] [id number] [address] [place] [address], [place] [address] 14 Oct, 2012 [facility] [address] [id number] [address] [place] [address], [place] [address] 08 Oct, 2012 [facility] [address] [id number] [address] [place] [address], [place] [address] 07 Oct, 2012 [facility] [address] [id number] [address] [place] [address], [place] [address] 03 Oct, 2012 [facility] [address] [id number] [address] [place] [address], [place] [address] Sep, [facility] [address] [id number] [address] [place] [address], [place] [address] Sep, [facility] [address] [id number] [address] [place] [address], [place] [address] Sep, [facility] [address] [id number] [address] [place] [address], [place] [address] Sep, [facility] [address] [id number] [address] [place] [address], [place] [address] Sep, [facility] [address] [id number] [address] [place] [address], [place] [address] Sep, [facility] [address] [id number] [address] [place] [address], [place] [address] Sep, [facility] [address] [id number] [address] [place] [address], [place] [address] Sep, [facility] [address] [id number] [address] [place] [address], [place] [address] Aug, [facility] [address] [id number] [address] [place] [address], [place] [address] Aug, [facility] [address] [id number] [address] [place] [address], [place] [address] Aug, [facility] [address] [id number] [address] [place] [address], [place] [address] Aug, [facility] [address] [id number] [address] [place] [address], [place] [address] Aug, [facility] [address] [id number] [address] [place] [address], [place] [address] Aug, [facility] [address] [id number] [address] [place] [address], [place] [address] Aug, [facility] [address] [id number] [address] [place] [address], [place] [address] Aug, [facility] [address] [id number] [address] [place] [address], [place] [address] Jul, [facility] [address] [id number] [address] [place] [address], [place] [address] Jul, [facility] [address] [id number] [address] [place] [address], [place] [address] Jul, [facility] [address] [id number] [address] [place] [address], [place] [address] Jul, [facility] [address] [id number] [address] [place] [address], [place] [address] Jul, [facility] [address] [id number] [address] [place] [address], [place] [address] Jul, [facility] [address] [id number] [address] [place] [address], [place] [address] Jun, [facility] [address] [id number] [address] [place] [address], [place] [address] Jun, [facility] [address] [id number] [address] [place] [address], [place] [address] Jun, [facility] [address] [id number] [address] [place] [address], [place] [address] Jun, [facility] [address] [id number] [address] [place] [address], [place] [address] Jun, [facility] [address] [id number] [address] [place] [address], [place] [address] Jun, [facility] [address] [id number] [address] [place] [address], [place] [address] Jun, [facility] [address] [id number] [address] [place] [address], [place] [address] Jun, [facility] [address] [id number] [address] [place] [address], [place] [address] 10 Jun, 2012 [facility] [address] [id number] [address] [place] [address], [place] [address] 26 May, 2012 [facility] [address] [id number] [address] [place] [address], [place] [address] 24 May, 2012 [facility] [address] [id number] [address] [place] [address], [place] [address] 18 May, 2012 [facility] [address] [id number] [address] [place] [address], [place] [address] 30 Apr, 2012 [facility] [address] [id number] [address] [place] [address], [place] [address] 29 Apr, 2012 [facility] [address] [id number] [address] [place] [address], [place] [address] Apr, [facility] [address] [id number] [address] [place] [address], [place] [address] 14 Apr, 2012 [facility] [address] [id number] [address] [place] [address], [place] [address] Apr, [facility] [address] [id number] [address] [place] [address], [place] [address] Apr, [facility] [address] [id number] [address] [place] [address], [place] [address] Mar, [facility] [address] [id number] [address] [place] [address], [place] [address] Mar, [facility] [address] [id number] [address] [place] [address], [place] [address] Mar, [facility] [address] [id number] [address] [place] [address], [place] [address] Mar, [facility] [address] [id number] [address] [place] [address], [place] [address] Feb, [facility] [address] [id number] [address] [place] [address], [place] [address] Feb, [facility] [address] [id number] [address] [place] [address], [place] [address] Feb, [facility] [address] [id number] [address] [place] [address], [place] [address] Feb, [facility] [address] [id number] [address] [place] [address], [place] [address] Feb, [facility] [address] [id number] [address] [place] [address], [place] [address] January, [facility] [address] [id number] [address] [place] [address], [place] [address] January, [facility] [address] [id number] [address] [place] [address], [place] [address] January, [facility] [address] [id number] [address] [place] [address], [place] [address] January, [facility] [address] [id number] [address] [place] [address], [place] [address] January, [facility] [address] [id number] [address] [place] [address], [place] [address] January, [facility] [address] [id number] [address] [place] [address], [place] [address] 24 Dec, 2011 [facility] [address] [id number] [address] [place] [address], [place] [address] 24 Dec, 2011 [facility] [address] [id number] [address] [place] [address], [place] [address] 17 Dec, 2011 [facility] [address] [id number] [address] [place] [address], [place] [address] 09 Dec, 2011 [facility] [address] [id number] [address] [place] [address], [place] [address] 06 Dec, 2011 [facility] [address] [id number] [address] [place] [address], [place] [address] 27 Nov, 2011 [facility] [address] [id number] [address] [place] [address], [place] [address] 14 Nov, 2011 [facility] [address] [id number] [address] [place] [address], [place] [address] 12 Nov, 2011 [facility] [address] [id number] [address] [place] [address], [place] [address] 07 Nov, 2011 [facility] [address] [id number] [address] [place] [address], [place] [address] 29 Oct, 2011 [facility] [address] [id number] [address] [place] [address], [place] [address] 28 Oct, 2011 [facility] [address] [id number] [address] [place] [address], [place] [address] 24 Oct, 2011 [facility] [address] [id number] [address] [place] [address], [place] [address] 13 Oct, 2011 [facility] [address] [id number] [address] [place] [address], [place] [address] 08 Oct, 2011 [facility] [address] [id number] [address] [place] [address], [place] [address] Sep, [facility] [address] [id number] [address] [place] [address], [place] [address] Sep, [facility] [address] [id number] [address] [place] [address], [place] [address] Sep, [facility] [address] [id number] [address] [place] [address], [place] [address] Sep, [facility] [address] [id number] [address] [place] [address], [place] [address] Sep, [facility] [address] [id number] [address] [place] [address], [place] [address] Sep, [facility] [address] [id number] [address] [place] [address], [place] [address] Aug, [facility] [address] [id number] [address] [place] [address], [place] [address] Aug, [facility] [address] [id number] [address] [place] [id number] Aug, [facility] [address] [id number] [address] [place] [address], [place] [address] Jul, [facility] [address] [id number] [address] [place] [id number] Jul, [facility] [address] [id number] [address] [place] [address] Jul, [facility] [address] [id number] [address] [place] [address] Jul, [facility] [address] [id number] [address] [place] [address], [place] [address] Jun, [facility] [address] [id number] [address] [place] [address], [place] [address] Jun, [facility] [address] [id number] [address] [place] [address] Jun, [facility] [address] [id number] [address] [place] [id number] 10 Jun, 2011 [facility] [address] [id number] [address] [place] [address], [place] [address] 10 Jun, 2011 [facility] [address] [id number] [address] [place] [address], [place] [address] 10 Jun, 2011 [facility] [address] [id number] [address] [place] [address], [place] [address] 11 Mar, 2011 [facility] [address] [id number] [address] [place] [address], [place] [address] 18 Dec, 2010 [facility] [address] [id number] [address] [place] [address], [place] [address] 11 Dec, 2010 [facility] [address] [id number] [address] [place] [address], [place] [address] 18 Nov, 2010 [facility] [address] [id number] [address] [place] [address], [place] [address] 16 Nov, 2010 [facility] [address] [id number] [address] [place] [address], [place] [address] 10 Sep, 2010 [facility] [address] [id number] [address] [place] [address], [place] [address] 31 Aug, 2010 [facility] [address] [id number] [address] [place] [address], [place] [address] 29 Aug, 2010 [facility] [address] [id number] [address] [place] [address], [place] [address] 29 Aug, 2010 [facility] [address] [id number] [address] [place] [address], [place] [address] 29 Aug, 2010 [facility] [address] [id number] [address] [place] [address], [place] [address] 27 Aug, 2010 [facility] [address] [id number] [address] [place] [address], [place] [address] 14 Aug, 2010 [facility] [address] [id number] [address] [place] [address], [place] [address] 08 Aug, 2010 [facility] [address] [id number] [address] [place] [address], [place] [address] 08 Aug, 2010 [facility] [address] [id number] [address] [place] [address], [place] [address] Aug, [facility] [address] [id number] [address] [place] [address], [place] [address] Aug, [facility] [address] [id number] [address] [place] [address], [place] [address] Aug, [facility] [address] [id number] [address] [place] [address], [place] [address] Aug, [facility] [address] [id number] [address] [place] [address], [place] [address] Jul, [facility] [address] [id number] [address] [place] [address], [place] [address] Jul, [facility] [address] [id number] [address] [place] [address], [place] [address] Jul, [facility] [address] [id number] [address] [place] [address], [place] [address] Jul, [facility] [address] [id number] [address] [place] [address], [place] [address] Jul, [facility] [address] [id number] [address] [place] [address], [place] [address] Jul, [facility] [address] [id number] [address] [place] [address], [place] [address] Jun, [facility] [address] [id number] [address] [place] [address], [place] [address] Jun, [facility] [address] [id number] [address] [place] [address], [place] [address] Jun, [facility] [address] [id number] [address] [place] [address], [place] [address] Jun, [facility] [address] [id number] [address] [place] [address], [place] [address] 16 Apr, 2010 [facility] [address] [id number] [address] [place] [address], [place] [address] Mar, [facility] [address] [id number] [address] [place] [address], [place] [address] Feb, [facility] [address] [id number] [address] [place] [address], [place] [address] January, [facility] [address] [id number] [address] [place] [address], [place] [address] 15 Dec, 2009 [facility] [address] [id number] [address] [place] [address], [place] [address] Nov, [facility] [address] [id number] [address] [place] [address], [place] [address] Aug, [facility] [address] [id number] [address] [place] [address], [place] [address] Aug, [facility] [address] [id number] [address] [place] [id number] Aug, [facility] [address] [id number] [address] [place] [address] Jul, [facility] [address] [id number] [address] [place] [phone] Jul, [facility] [address] [id number] [address] [place] [address] Jul, [facility] [address] [id number] [address] [place] [id number] 30 Jun, 2009 [facility] [address] [id number] [address] [place] [address], [place] [address] 29 Jun, 2009 [facility] [address] [id number] [address] [place] [phone] Jun, [facility] [address] [id number] [address] [place] [id number] 22 Jun, 2009 [facility] [address] [id number] [address] [place] [phone] Jun, [facility] [address] [facility] [id number] [address] [place] [phone] Jun, [facility] [address] [facility] [id number] [address] [place] [id number] Apr, [facility] [address] [facility] [id number] [address] [place] [phone] Apr, [facility] [address] [facility] [id number] [address] [place] [phone] Feb, [facility] [address] [facility] [id number] [address] [place] [phone] January, [facility] [address] [facility] [id number] [address] [place] [phone] Dec, IMMUNIZATIONS No Known Immunizations SOCIAL HISTORY [...] Medical History skin cancer-basal cell R anglican (removed ) Medical History Arthritis Medical History [...] [facility] health ea rly 2000's Hospitalization History hyperkalemia 10/2017 Hospitalization History fluid in lung
--- OUTSIDE RECORDS SUMMARY | 2020-03-01 17:56 | XMS REPORT ---
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 Name Role Phone JAZZLURDESA Unavailable PROBLEMS Type Condition ICD9-CM Code NOG97-VH Code Onset Dates Condition S tatus SNOMED Code Problem Leukocytosis D72.829 Active 0611369 06 Problem Bipolar I disorder, most recent episode (or curr ent) mixed, moderate F31.62 Active 61039797 Problem Reactive airway disease J45.909 Active 460900982390 Problem Anxiety F41.9 Active 16434536 Problem Insomnia, unspecified type G47.00 Act sharon 502841060 Problem Essential hypertension I10 Active 50794601 Problem Morbid obesity E66.01 Active 94991 6002 Problem Skin cancer C44.90 Active 29480400 7 Problem DM neuro manif type II E11.49 Active 45794780 Problem Mild cognitive impairment G31.84 Acti ve 807908421 Problem Benign prostatic hyperplasia with lower urinary tract symptoms, unspecified morphology N40.1 Active 91943 6007 Problem Chronic pain G89.29 Active 4705687 1 Problem Diabetes E11.9 Active 64136730 Problem Retinal edema H35.81 Active 729009 6 Problem Anemia of chronic illness D63.8 Acti ve 020393453 Problem Falling R29.6 Active 282382432 Problem Pressure ulcer of other site, stage 3 L89.893 Active 969765895 Problem 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 Active 677832452 Problem Eye exam abnormal R93.8 Active 16 4277714 Problem Pure hypercholesterolemia E78.00 Acti ve 241478637 Problem Dysuria R30.0 Active 69440373 Problem Bipolar disorder, in partial remission, most rec ent episode depressed F31.75 Active 71406689 Problem Hypokalemia E87.6 Active 15389829 Problem Other iron deficiency anemia D50.8 A ctive 70834988 Problem Eustachian tube dysfunction, unspecified laterality H69.80 Active 17496907 Problem Primary osteoarthritis of right knee M17.11 Active 869893410668407 Problem Cough R05 Active 84651036 Problem Bipolar disorder F31.9 Active 137 69614 Problem Chronic diastolic (congestive) heart failure I50.3 2 Active 200184847 Problem Psychophysiological insomnia F51.04 A ctive 729219009 Problem Gastroesophageal reflux disease without esophagitis K21.9 Active 978564205 Problem Polyneuropathy associated with underlying disease G63 Active 756552000 Problem Other secondary acute gout, 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 0 Active 833851358 Problem Diabetic polyneuropathy associated with type 2 d iabetes mellitus E11.42 Active 24349968 Problem Chronic lymphocytic leukemia C91.10 A ctive 06225194 Problem Bilateral primary osteoarthritis of knee M17.0 Active 859845342 Problem Type 2 diabetes mellitus with diabetic neuropathy, uns pecified E11.40 Active 03555939 Problem long-term (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 Z79.4 Active 240933430 Problem Lymphocytosis D72.820 Active 429890 09 Problem Mood disorder F39 Active 585602 05 Problem Bipolar I disorder, most recent episode depressed, moderat e F31.32 Active 055851873 ALLERGIES No Information ENCOUNTERS Encounter Location Date Diagnosis [facility] [address] [facility] [id number] [address] [place] [phone] Dec, [facility] [address] [facility] [id number] [address] [place] [phone] Dec, Chronic pain G89.29 [facility] [address] [facility] [id number] [address] [place] [id number] 13 Dec, 2019 [facility] [address] [id number] [address] [place] [phone] Dec, [facility] [address] [facility] [id number] [address] [place] [phone] Dec, Gastroesophageal reflux dise ase without esophagitis K21.9 and Pure hypercholesterolemia E78.00 [facility] [address] [facility] [id number] [address] [place] [phone] Dec, Mood disorder F39 [facility] [address] [facility] [id number] [address] [place] [phone] 31 Nov, 2019 Other secondary acute gout, 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 [facility] [address] [facility] [id number] [address] [place] [phone] Nov, Gastroesophageal reflux dise ase without esophagitis K21.9 [facility] [address] [facility] [id number] [address] [place] [phone] Nov, Chronic pain G89.29 [facility] [address] [facility] [id number] [address] [place] [phone] Nov, Bipolar I disorder, most rec ent episode depressed, moderate F31.32 ; Anxiety F41.9 and Mild cognitive impairment G31.84 [place] [address] [facility] [id number] [address] [place] [phone] Nov, [place] [address] [facility] [id number] [address] [place] [phone] Nov, Syncope, unspecified syncope type R55 [facility] [address] [facility] [id number] [address] [place] [phone] Nov, Mood disorder F39 [facility] [address] [facility] [id number] [address] [place] [phone] Oct, Chronic pain G89.29 [facility] [address] [facility] [id number] [address] [place] [phone] Oct, [facility] [address] [facility] [id number] [address] [place] [phone] Oct, Mood disorder F39 [facility] [address] [facility] [id number] [address] [place] [phone] Oct, [facility] [address] [facility] [id number] [address] [place] [phone] Oct, Bipolar disorder, in partial remission, most recent episode depressed F31.75 and Mild cognitive impairment G31.84 [facility] [address] [facility] [id number] [address] [place] [phone] Oct, Mood disorder F39 [facility] [address] [id number] [address] [place] [phone] Sep, [facility] [address] [id number] [address] [place] [phone] Sep, Mood disorder F39 [facility] [address] [id number] [address] [place] [phone] Sep, Bipolar disorder, in partial remission, most recent episode depressed F31.75 and Mild cognitive impairment G31.84 [facility] [address] [id number] [address] [place] [phone] Sep, Mood disorder F39 [facility] [address] [id number] [address] [place] [phone] Sep, [facility] [address] [id number] [address] [place] [phone] Sep, Mood disorder F39 [facility] [address] [id number] [address] [place] [phone] Sep, [facility] [address] [id number] [address] [place] [phone] Aug, Mood disorder F39 [facility] [address] [id number] [address] [place] [phone] Aug, [facility] [address] [id number] [address] [place] [phone] Aug, [facility] [address] [id number] [address] [place] [phone] Aug, [facility] [address] [id number] [address] [place] [phone] Aug, [facility] [address] [id number] [address] [place] [phone] Aug, [facility] [address] [id number] [address] [place] [phone] Aug, [facility] [address] [id number] [address] [place] [phone] Aug, [facility] [address] [id number] [address] [place] [phone] Aug, Essential hypertension I10 [facility] [address] [id number] [address] [place] [phone] Aug, Bipolar disorder, in partial remission, most recent episode depressed F31.75 and Mild cognitive impairment G31.84 [facility] [address] [id number] [address] [place] [phone] Aug, Mood disorder F39 [facility] [address] [id number] [address] [place] [phone] Aug, [facility] [address] [id number] [address] [place] [phone] Aug, Bipolar disorder, in partial remission, most recent episode depressed F31.75 and Mild cognitive impairment G31.84 [facility] [address] [id number] [address] [place] [phone] Jul, Bipolar disorder, in partial remission, most recent episode depressed F31.75 and Mild cognitive impairment G31.84 [facility] [address] [id number] [address] [place] [phone] Jul, Psychophysiological insomnia F51.04 [facility] [address] [id number] [address] [place] [phone] Jul, [facility] [address] [id number] [address] [place] [phone] Jul, [facility] [address] [id number] [address] [place] [phone] Jul, [facility] [address] [id number] [address] [place] [phone] Jul, [facility] [address] [id number] [address] [place] [phone] Jul, [place] [address] [facility] [id number] [address] [place] [phone] Jul, [place] [address] [facility] [id number] [address] [place] [phone] Jul, Bipolar disorder, in partial remission, most recent episode depressed F31.75 and Mild cognitive impairment G31.84 [place] [address] [place] [id number] [address] [place] [id number] Jul, Chronic pain G89.29 ; Diabet es E11.9 ; Essential hypertension I10 ; Ill feeling R68.89 ; Local infection of the skin and subcutaneous tissue, unspecified L08.9 and Other injury of unspecified body region, initial encounter T14.8XXA [place] [address] [place] [id number] [address] [place] [phone] Jun, Bipolar disorder, in partial remission, most recent episode depressed F31.75 and Mild cognitive impairment G31.84 [place] [address] [place] [id number] [address] [place] [phone] Jun, [place] [address] 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 [id number] [address] [place] [phone] Jun, Bipolar disorder F31.9 [facility] [address] [facility] [id number] [address] [place] [phone] May, Bipolar disorder, in partial remission, most recent episode depressed F31.75 and Mild cognitive impairment G31.84 [facility] [address] [id number] [address] [place] [phone] May, [facility] [address] [facility] [id number] [address] [place] [phone] Apr, Chronic pain G89.29 and Bipo lar disorder F31.9 [facility] [address] [id number] [address] [place] [phone] Mar, Bipolar disorder F31.9 and C hronic pain G89.29 [facility] [address] [facility] [id number] [address] [place] [phone] Feb, Bipolar disorder F31.9 [facility] [address] [id number] [address] [place] [phone] Feb, Cellulitis of right upper ex tremity L03.113 and Skin abrasion T14.8XXA [facility] [address] [id number] [address] [place] [phone] Feb, Bipolar disorder, in partial remission, most recent episode depressed F31.75 and Mild cognitive impairment G31.84 [facility] [address] [id number] [address] [place] [phone] Feb, Chronic pain G89.29 [facility] [address] [facility] [id number] [address] [place] [id number] Feb, Bipolar disorder, in partial remission, most recent episode depressed F31.75 and Mild cognitive impairment G31.84 [facility] [address] [id number] [address] [place] [phone] January, Bipolar disorder, in partial remission, most recent episode depressed F31.75 and Mild cognitive impairment G31.84 [facility] [address] [id number] [address] [place] [phone] January, Chronic pain G89.29 and Bipo lar disorder F31.9 [facility] [address] [id number] [address] [place] [phone] January, Bipolar disorder, in partial remission, most recent episode depressed F31.75 and Mild cognitive impairment G31.84 [facility] [address] [id number] [address] [place] [phone] Dec, [facility] [address] [id number] [address] [place] [phone] Dec, Chronic pain G89.29 and Bipo lar disorder F31.9 [facility] [address] [id number] [address] [place] [phone] Dec, Edema of both lower extremit ies R60.0 [facility] [address] [id number] [address] [place] [id number] Dec, Bipolar disorder F31.9 [facility] [address] [id number] [address] [place] [phone] Dec, Bipolar disorder, in partial remission, most recent episode depressed F31.75 and Mild cognitive impairment G31.84 [facility] [address] [id number] [address] [place] [phone] Nov, [facility] [address] [id number] [address] [place] [phone] Nov, Chronic pain G89.29 [facility] [address] [id number] [address] [place] [id number] Nov, Bipolar disorder, in partial remission, most recent episode depressed F31.75 and Mild cognitive impairment G31.84 [place] [address] [place] [id number] [address] [place] [phone] Nov, Bipolar disorder F31.9 [place] [address] [place] [id number] [address] [place] [id number] 04 Nov, 2018 [facility] ; Polyneuropathy associated [...] N40.1 and Essential hypertension I10 [place] [address] [place] [id number] [address] [place] [address] Oct, Chronic pain G89.[address] [address] Oct, Diabetes E11.9 [place] [address] [address] Oct, Bipolar I disorder, most rec ent episode (or current) mixed, moderate F31.62 and Mild cognitive impairment G31.84 [place] [address] [place] [id number] [address] [place] [phone] Oct, Bipolar I disorder, most rec ent episode (or current) mixed, moderate F31.62 and Mild cognitive impairment G31.84 [place] [address] [place] [id number] [address] [place] [address] Sep, Bipolar I disorder, most rec ent episode (or current) mixed, moderate F31.62 and Mild cognitive impairment G31.84 [place] [address] [place] [id number] [address] [place] [address] Sep, [facility] [address] [facility] [id number] [address] [place] [phone] Sep, Diabetes E11.9 ; Hypoxia R09 .02 ; Hyperglycemia R73.9 ; Therapeutic drug monitoring Z51.81 ; BMI 50.0-59.9, adult Z68.43 and Skin cancer C44.90 [place] [address] [facility] [id number] [address] [place] [phone] Sep, Chronic pain G89.29 [place] [address] [facility] [id number] [address] [place] [phone] Sep, Bipolar I disorder, most rec ent episode (or current) mixed, moderate F31.62 [place] [address] [facility] [id number] [address] [place] [phone] Sep, [place] [address] [place] [id number] [address] [place] [phone] Sep, [facility] [address] [facility] [id number] [address] [place] [address] Aug, Chronic pain G89.29 [place] [address] [facility] [id number] [address] [place] [phone] Aug, Bipolar I disorder, most rec ent episode (or current) mixed, moderate F31.62 [place] [address] [facility] [id number] [address] [place] [phone] Aug, Bipolar I disorder, most rec ent episode (or current) mixed, moderate F31.62 and Mild cognitive impairment G31.84 [place] [address] [facility] [id number] [address] [place] [phone] Jul, [place] [address] [facility] [id number] [address] [place] [phone] Jul, Chronic pain G89.29 [facility] [address] [facility] [id number] [address] [place] [id number] Jul, Bipolar I disorder, most rec ent episode (or current) mixed, moderate F31.62 and Mild cognitive impairment G31.84 [place] [address] [facility] [id number] [address] [place] [address] Jul, Bipolar I disorder, most rec ent episode (or current) mixed, moderate F31.62 and MCI (mild cognitive impairment) G31.84 [facility] [address] [facility] [id number] [address] [place] [phone] Jul, [facility] [address] [facility] [id number] [address] [place] [phone] Jul, [place] [address] [facility] [id number] [address] [place] [phone] Jul, Bipolar I disorder, most rec ent episode (or current) mixed, moderate F31.62 [place] [address] [facility] [id number] [address] [place] [address] Jul, Chronic pain G89.29 [place] [address] [facility] [id number] [address] [place] [phone] Jun, Bipolar I disorder, most rec ent episode (or current) mixed, moderate F31.62 [place] [address] [facility] [id number] [address] [place] [phone] Jun, Pre-procedure lab exam Z01.8 12 [place] [address] [place] [id number] [address] [place] [phone] Jun, [facility] [address] [facility] [id number] [place] [id number] Jun, [facility] [address] [facility] [id number] [address] [place] [phone] Jun, [place] [address] [place] [id number] [address] [place] [phone] Jun, Forgetfulness R68.89 ; Pre-s yncope R55 ; Localized edema R60.0 ; Other iron deficiency anemia D50.8 and BMI 50.0-59.9, adult Z68.43 [facility] [address] [facility] [id number] [address] [place] [phone] Jun, Chronic pain G89.29 [facility] [address] [facility] [id number] [address] [place] [phone] 05 Jun, 2018 Chronic pain G89.29 [facility] [address] [facility] [id number] [address] [place] [phone] Jun, Bipolar I disorder, most rec ent episode (or current) mixed, moderate F31.62 [facility] [address] [facility] [id number] [address] [place] [phone] May, Chronic pain G89.29 [facility] [address] [facility] [id number] [address] [place] [phone] Apr, [place] [address] [facility] [id number] [address] [place] [address] Apr, Chronic pain G89.29 [facility] [address] [place] [id number] [address] [place] [phone] Apr, Primary osteoarthritis of ri ght knee M17.11 [facility] [address] [facility] [id number] [address] [place] [phone] Mar, [facility] [address] [facility] [id number] [address] [place] [phone] Mar, BMI 50.0-59.9, adult Z68.43 and Bipolar disorder, in partial remission, most recent episode depressed F31.75 [facility] [address] [facility] [id number] [address] [place] [address] Mar, Diabetes E11.9 ; Pure hyperc holesterolemia E78.00 ; Essential hypertension I10 ; Nausea with vomiting, unspecified R11.2 and Headache, unspecified headache type R51 [facility] [address] [facility] [id number] [address] [place] [phone] Mar, Bipolar I disorder, most rec ent episode (or current) mixed, moderate F31.62 [place] [address] [facility] [id number] [address] [place] [phone] Mar, Bipolar I disorder, most rec ent episode (or current) mixed, moderate F31.62 [facility] [address] [facility] [id number] [address] [place] [phone] Mar, Chronic pain G89.29 [facility] [address] [facility] [id number] [address] [place] [phone] Mar, Bipolar I disorder, most rec ent episode (or current) mixed, moderate F31.62 [place] [address] [facility] [id number] [address] [place] [phone] Feb, Bipolar I disorder, most rec ent episode (or current) mixed, moderate F31.62 [place] [address] [facility] [id number] [address] [place] [phone] Feb, Chronic pain G89.29 [place] [address] [address] [place] [id number] [address] [place] [phone] Feb, Decubitus ulcer of right josselin t, stage 3 L89.893 and BMI 50.0-59.9, adult Z68.43 [place] [address] [facility] [id number] [address] [place] [phone] Feb, Bipolar I disorder, most rec ent episode (or current) mixed, moderate F31.62 [place] [address] [address] [place] [id number] [address] [place] [phone] Feb, [facility] [address] [facility] [id number] [address] [place] [phone] January, [place] [address] [facility] [id number] [address] [place] [phone] January, Chronic pain G89.29 [facility] [address] [facility] [id number] [address] [place] [phone] January, Bipolar I disorder, most rec ent episode (or current) mixed, moderate F31.62 [place] [address] [address] [place] [id number] [address] [place] [phone] January, Bipolar I disorder, most rec ent episode (or current) mixed, moderate F31.62 [place] [address] [place] [id number] [place] [phone] Dec, Bipolar I disorder, most rec ent episode (or current) mixed, moderate F31.62 and BMI 50.0-59.9, adult Z68.43 [place] [address] [id number] [place] [phone] Dec, Bipolar I disorder, most rec ent episode (or current) mixed, moderate F31.62 [place] [address] [address] Dec, Chronic pain G89.29 [place] [address] [address] Dec, DM neuro manif type II E11.4 9 ; Right flank pain R10.9 ; 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 ; Encounter for medication monitoring Z51.81 and BMI 50.0-59.9, adult Z68.43 [place] [address] [address] Dec, Bipolar I disorder, most rec ent episode (or current) mixed, moderate F31.62 [place] [address] [place] [id number] [place] [phone] Nov, Bipolar I disorder, most rec ent episode (or current) mixed, moderate F31.62 [place] [address] [place] [id number] [place] [id number] Nov, Chronic pain G89.29 [place] [address] [place] [address] [id number] [place] [phone] Nov, Bipolar I disorder, most rec ent episode (or current) mixed, moderate F31.62 [place] [address] [place] [id number] [place] [phone] Nov, Hypokalemia E87.6 [facility] [id number] [place] [phone] Nov, Bipolar I disorder, most rec ent episode (or current) mixed, moderate F31.62 [facility] [address] [id number] [place] [address] Oct, Chronic pain G89.29 [place] [address] [address] Oct, BMI 50.0-59.9, adult Z68.43 and Bipolar I disorder, most recent episode (or current) mixed, moderate F31.62 [place] [address] [address] [id number] [place] [address] Oct, Bipolar I disorder, most rec ent episode (or current) mixed, moderate F31.62 [place] [address] [address] Oct, [place] [address] [address] Oct, Hypokalemia E87.6 [place] [address] [place] [address] [id number] [place] [address] Oct, DM neuro manif type II E11.4 9 [place] [address] [address] Oct, Bipolar I disorder, most rec ent episode (or current) mixed, moderate F31.62 [place] [address] [place] [id number] [place] [id number] Oct, Bipolar I disorder, most rec ent episode (or current) mixed, moderate F31.62 [place] [address] [place] [id number] [place] [phone] 14 Oct, 2017 Hyperkalemia E87.5 ; Falling R29.6 ; BMI 50.0-59.9, adult Z68.43 and Acute left ankle pain M25.572 [facility] [id number] [place] [id number] 08 Oct, 2017 DM neuro manif type II E11.4 9 [facility] [address] [place] [address] [id number] [place] [phone] Oct, [place] [address] [place] [id number] [place] [phone] Sep, Chronic pain G89.29 [place] [address] [place] [id number] [place] [address] Sep, [place] [address] [address] Sep, Bilateral primary osteoarthr itis of knee M17.0 [place] [address] [address] Sep, Generalized edema R60.1 [place] [address] [place] [address] [id number] [place] [phone] 16 Sep, 2017 Bipolar I disorder, most rec ent episode (or current) mixed, moderate F31.62 [place] [address] [address] 15 Sep, 2017 Hypoxia R09.02 ; Other hyper volemia E87.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 [id number] [address] [place] [phone] Aug, Generalized edema R60.1 [facility] [address] [facility] [id number] [address] [place] [phone] Aug, [facility] [address] [facility] [id number] [address] [place] [phone] Aug, [facility] [address] [facility] [id number] [address] [place] [phone] 14 Aug, 2017 Bipolar I disorder, most rec ent episode (or current) mixed, moderate F31.62 [facility] [address] [place] [id number] [place] [phone] 07 Aug, 2017 Bipolar I disorder, most rec ent episode (or current) mixed, moderate F31.62 [place] [address] [facility] [id number] [address] [place] [phone] 04 Aug, 2017 Chronic pain G89.29 [facility] [address] [facility] [id number] [address] [place] [phone] 30 Jul, 2017 Bipolar I disorder, most rec ent episode (or current) mixed, moderate F31.62 [facility] [address] [facility] [id number] [address] [place] [id number] Jul, Bipolar I disorder, most rec ent episode (or current) mixed, moderate F31.62 and BMI 60.0-69.9, adult Z68.44 [facility] [address] [facility] [id number] [address] [place] [phone] 16 Jul, 2017 Bipolar I disorder, most rec ent episode (or current) mixed, moderate F31.62 [facility] [address] [facility] [id number] [address] [place] [id number] 06 Jul, 2017 Chronic pain G89.29 [facility] [address] [facility] [id number] [address] [place] [phone] Jul, Bipolar I disorder, most rec ent episode (or current) mixed, moderate F31.62 [facility] [address] [id number] [address] [place] [phone] Jun, Polyneuropathy associated wi th underlying disease G63 and Diabetes E11.9 [facility] [address] [facility] [id number] [address] [place] [phone] 16 Jun, 2017 Bipolar I disorder, most rec ent episode (or current) mixed, moderate F31.62 [facility] [address] [facility] [id number] [address] [place] [phone] Jun, Chronic pain G89.29 [facility] [address] [facility] [id number] [address] [place] [phone] May, Bipolar I disorder, most rec ent episode (or current) mixed, moderate F31.62 [facility] [address] [facility] [id number] [address] [place] [phone] May, Bipolar I disorder, most rec ent episode (or current) mixed, moderate F31.62 [facility] [address] [facility] [id number] [address] [place] [phone] May, Diabetic polyneuropathy asso ciated with type 2 diabetes mellitus E11.42 [facility] [address] [id number] [address] [place] [phone] 18 May, 2017 Bipolar I disorder, most rec ent episode (or current) mixed, moderate F31.62 [facility] [address] [facility] [id number] [address] [place] [phone] May, Bipolar I disorder, most rec ent episode (or current) mixed, moderate F31.62 [facility] [address] [facility] [id number] [address] [place] [phone] May, Chronic pain G89.29 [facility] [address] [facility] [id number] [address] [place] [phone] Apr, Bipolar I disorder, most rec ent episode (or current) mixed, moderate F31.62 [place] [address] [id number] [address] [place] [phone] Apr, [facility] [address] [facility] [id number] [address] [place] [phone] Apr, Chronic pain G89.29 and DM n euro manif type II E11.49 [facility] [address] [facility] [id number] [address] [place] [phone] Apr, [facility] [address] [facility] [id number] [address] [place] [id number] Apr, Bipolar I disorder, most rec ent episode (or current) mixed, moderate F31.62 [facility] [address] [facility] [id number] [address] [place] [phone] Apr, Chronic pain G89.29 [facility] [address] [place] [id number] [place] [address] Apr, Iliotibial band syndrome, le ft M76.32 [facility] [address] [facility] [id number] [address] [place] [phone] Apr, Bipolar I disorder, most rec ent episode (or current) mixed, moderate F31.62 [facility] [address] [place] [id number] [place] [address] Mar, Bipolar I disorder, most rec ent episode (or current) mixed, moderate F31.62 [place] [address] [place] [id number] [place] [phone] Mar, Bipolar I disorder, most rec ent episode (or current) mixed, moderate F31.62 [place] [address] [facility] [id number] [address] [place] [phone] Mar, [facility] [address] [place] [id number] [place] [phone] Mar, Bipolar I disorder, most rec ent episode (or current) mixed, moderate F31.62 [place] [address] [place] [id number] [place] [address] Mar, Chronic pain G89.29 [facility] [address] [id number] [address] [place] [phone] Mar, Bipolar I disorder, most rec ent episode (or current) mixed, moderate F31.62 [facility] [address] [id number] [address] [place] [phone] Mar, Bipolar I disorder, most rec ent episode (or current) mixed, moderate F31.62 [facility] [address] [id number] [address] [place] [phone] Mar, Acute pain of left knee M25. 562 ; Left hip pain M25.552 ; Generalized edema R60.1 and Tongue swelling R22.0 [facility] [address] [id number] [address] [place] [phone] Mar, [facility] [address] [facility] [id number] [address] [place] [phone] Feb, Chronic pain G89.29 [facility] [address] [id number] [address] [place] [phone] Feb, Diabetes E11.9 [facility] [address] [id number] [address] [place] [phone] January, Chronic pain G89.29 [facility] [address] [id number] [address] [place] [phone] January, [facility] [address] [facility] [id number] [address] [place] [phone] January, Bipolar I disorder, most rec ent episode (or current) mixed, moderate F31.62 [facility] [address] [facility] [id number] [address] [place] [phone] Dec, Bipolar I disorder, most rec ent episode (or current) mixed, moderate F31.62 [facility] [address] [facility] [id number] [address] [place] [phone] Dec, Chronic pain G89.29 [facility] [address] [id number] [address] [place] [phone] Dec, Bipolar I disorder, most rec ent episode (or current) mixed, moderate F31.62 [facility] [address] [facility] [id number] [address] [place] [phone] Dec, Diabetes E11.9 ; Essential h ypertension I10 ; Chronic pain G89.29 and Morbid obesity E66.01 [facility] [address] [facility] [id number] [address] [place] [phone] Dec, [facility] [address] [facility] [id number] [address] [place] [phone] Dec, Bipolar I disorder, most rec ent episode (or current) mixed, moderate F31.62 [place] [address] [facility] [id number] [address] [place] [phone] Dec, Bipolar I disorder, most rec ent episode (or current) mixed, moderate F31.62 [facility] [address] [facility] [id number] [address] [place] [phone] Nov, Chronic pain G89.29 [facility] [address] [id number] [address] [place] [phone] Nov, Bipolar I disorder, most rec ent episode (or current) mixed, moderate F31.62 [facility] [address] [facility] [id number] [address] [place] [id number] Nov, [facility] [address] [facility] [id number] [address] [place] [phone] Nov, Bipolar I disorder, most rec ent episode (or current) mixed, moderate F31.62 [facility] [address] [facility] [id number] [address] [place] [phone] Nov, Bipolar I disorder, most rec ent episode (or current) mixed, moderate F31.62 [place] [address] [facility] [id number] [address] [place] [phone] Nov, [place] [address] [id number] [address] [place] [phone] Nov, [facility] [address] [id number] [address] [place] [phone] Nov, [facility] [address] [facility] [id number] [address] [place] [id number] Oct, Chronic pain G89.29 [facility] [address] [facility] [id number] [address] [place] [phone] Oct, Bipolar I disorder, most rec ent episode (or current) mixed, moderate F31.62 [facility] [address] [facility] [id number] [address] [place] [phone] Oct, [facility] [address] 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 [id number] [address] [place] [phone] Oct, [facility] [address] [facility] [id number] [address] [place] [phone] Oct, Diabetes E11.9 [facility] [address] [facility] [id number] [address] [place] [id number] Oct, Bipolar I disorder, most rec ent episode (or current) mixed, moderate F31.62 [facility] [address] [id number] [address] [place] [address] Sep, Chronic pain G89.29 [facility] [address] [facility] [id number] [address] [place] [address] Sep, Chronic pain G89.29 [facility] [address] [facility] [id number] [address] [place] [phone] Aug, Chronic pain G89.29 [facility] [address] [place] [id number] [place] [phone] Jul, [facility] [address] [facility] [id number] [address] [place] [phone] Jul, Diabetes E11.9 [facility] [address] [place] [id number] [place] [address] Jul, Chronic pain G89.29 [place] [address] [place] [id number] [place] [phone] Jul, Bipolar I disorder, most rec ent episode (or current) mixed, moderate F31.62 [place] [address] [place] [id number] [place] [id number] Jun, Bipolar I disorder, most rec ent episode (or current) mixed, moderate F31.62 [place] [address] [place] [id number] [place] [phone] Jun, [place] [address] [place] [id number] [place] [address] Jun, Bipolar I disorder, most rec ent episode (or current) mixed, moderate F31.62 [place] [address] [place] [id number] [place] [id number] May, Insomnia, unspecified type G 47.00 [place] [address] [place] [id number] [place] [phone] May, Bipolar I disorder, most rec ent episode (or current) mixed, moderate F31.62 [place] [address] [place] [id number] [place] [phone] 14 May, 2016 [place] [address] [place] [id number] [place] [phone] 08 May, 2016 Bipolar I disorder, most rec ent episode (or current) mixed, moderate F31.62 [place] [address] [place] [id number] [place] [phone] 06 May, 2016 Diabetes E11.9 and Essential hypertension I10 [place] [address] [facility] [id number] [address] [place] [phone] Apr, Chronic pain G89.29 [place] [address] [facility] [id number] [address] [place] [phone] Apr, Bipolar I disorder, most rec ent episode (or current) mixed, moderate F31.62 [place] [address] [facility] [id number] [address] [place] [phone] Apr, [place] [address] [facility] [id number] [address] [place] [phone] Apr, [place] [address] [facility] [id number] [address] [place] [address] Mar, Chronic pain G89.29 ; Headac he, unspecified headache type R51 ; Neuropathy G62.9 ; Pain of right hip joint M25.551 and Essential hypertension I10 [place] [address] [facility] [id number] [address] [place] [phone] Mar, Chronic pain G89.29 [place] [address] [facility] [id number] [address] [place] [phone] Mar, Bipolar I disorder, most rec ent episode (or current) mixed, moderate F31.62 [place] [address] [facility] [id number] [address] [place] [phone] Feb, Bipolar I disorder, most rec ent episode (or current) mixed, moderate F31.62 and Insomnia, unspecified type G47.00 [place] [address] [facility] [id number] [address] [place] [phone] Feb, Chronic pain G89.29 [place] [address] [facility] [id number] [address] [place] [phone] Feb, Bipolar I disorder, most rec ent episode (or current) mixed, moderate F31.62 [place] [address] [facility] [id number] [address] [place] [phone] January, Bipolar I disorder, most rec ent episode (or current) mixed, moderate F31.62 [facility] [address] [id number] [address] [place] [phone] January, Chronic pain G89.29 [facility] [address] [facility] [id number] [address] [place] [phone] January, Chronic pain G89.29 and Esse ntial hypertension I10 [facility] [address] [facility] [id number] [address] [place] [phone] January, Bipolar I disorder, most rec ent episode (or current) mixed, moderate F31.62 [facility] [address] [id number] [address] [place] [phone] Dec, [facility] [address] [facility] [id number] [address] [place] [phone] Dec, [facility] [address] [facility] [id number] [address] [place] [phone] Dec, [facility] [address] [facility] [id number] [address] [place] [phone] Dec, [facility] [address] [place] [id number] [address] [place] [phone] Nov, Reactive airway disease J45. 909 [facility] [address] [place] [id number] [place] [phone] Nov, [facility] [address] [facility] [id number] [address] [place] [phone] Nov, [facility] [address] [facility] [id number] [address] [place] [phone] Nov, [facility] [address] [place] [id number] [address] [place] [phone] Nov, [facility] [address] [place] [id number] [address] [place] [phone] Nov, Onychomycosis B35.1 ; Hammer toe M20.40 ; [place] or callus L84 and DM neuro manif type II E11.49 [place] [id number] [place] [address] Nov, Chronic pain G89.29 ; Leukoc ytosis D72.829 and Diabetes E11.9 [facility] [address] [place] [id number] [address] [place] [phone] Nov, [place] [address] [id number] Oct, Bronchitis J40 [place] [address] [place] [phone] Oct, [place] [address] [id number] Oct, [place] [address] [phone] Oct, Mastoiditis, unspecified lat erality H70.90 and Type 2 diabetes mellitus with complication E11.8 [place] [address] [id number] Sep, [place] [address] [address] Sep, Dysuria R30.0 ; Cough R05 ; Benign prostatic hyperplasia with lower urinary tract symptoms, unspecified morphology N40.1 ; Hypokalemia E87.6 and Eustachian tube dysfunction, unspecified laterality H69.80 [place] [address] [address] Sep, Moderate mixed bipolar I dis order F31.62 [place] [address] [id number] Sep, Hypokalemia E87.6 [place] [address] [place] [id number] [place] [id number] Sep, [place] [address] [id number] Sep, Upper respiratory tract infe ction, unspecified type J06.9 [facility] [address] [id number] [address] [place] [id number] Aug, [facility] [address] [id number] [address] [place] [phone] Aug, Dysuria R30.0 [facility] [address] [id number] [address] [place] [phone] Aug, [facility] [address] [id number] [address] [place] [phone] Jul, [facility] [address] [id number] [address] [place] [phone] Jul, [facility] [address] [id number] [address] [place] [phone] Jul, [facility] [address] [id number] [address] [place] [id number] Jul, [facility] [address] [id number] [address] [place] [id number] Jun, [facility] [address] [id number] [address] [place] [phone] Jun, [facility] [address] [id number] [address] [place] [id number] Jun, [facility] [address] [id number] [address] [place] [id number] May, [facility] [address] [id number] [address] [place] [id number] May, Bipolar I disorder, most rec ent episode (or current) mixed, moderate 296.62 [facility] [address] [id number] [address] [place] [id number] 16 May, 2015 [facility] [address] [id number] [address] [place] [id number] May, Bipolar I disorder, most rec ent episode (or current) mixed, moderate 296.62 and Major depressive disorder, recurrent episode, severe, specified as with psychotic behavior 296.34 [facility] [facility] [address] [id number] [address] [place] [address] May, Bipolar I disorder, most rec ent episode (or current) mixed, moderate 296.62 [facility] [address] [facility] [id number] [address] [place] [address] May, [facility] [address] [id number] [address] [place] [address] Apr, [facility] [address] [id number] [address] [place] [address] Apr, [facility] [address] [place] [id number] [address] [place] [address] Apr, Unspecified disorder of kidn ey and ureter 593.9 and Diabetes mellitus type 2, uncontrolled 250.02 [facility] [address] [facility] [id number] [address] [place] [address] Apr, [facility] [address] [id number] [address] [place] [id number] Apr, [facility] [address] [facility] [id number] [address] [place] [address] Apr, [facility] [address] [facility] [id number] [address] [place] [address] Apr, [facility] [address] [facility] [id number] [address] [place] [address] Apr, Diabetes mellitus type II, u ncontrolled 250.02 [facility] [address] [facility] [id number] [address] [place] [address] Apr, [facility] [address] [facility] [id number] [address] [place] [address] Mar, [facility] [address] [facility] [id number] [address] [place] [address] Mar, [facility] [address] [facility] [id number] [address] [place] [address] Mar, [facility] [address] [place] [id number] [address] [place] [address] Mar, Major depressive disorder, r ecurrent episode, severe, specified as with psychotic behavior 296.34 and Bipolar I disorder, most recent episode (or current) mixed, moderate 296.62 [facility] [address] [place] [id number] [address] [place] [address] Mar, Diabetes 250.00 ; Anuria 788 .5 ; Nausea and vomiting 787.01 and Diarrhea 787.91 [facility] [address] [place] [id number] [address] [place] [address] Mar, Diabetes 250.00 [facility] [address] [place] [id number] [address] [place] [address] Mar, [facility] [address] [place] [id number] [address] [place] [address] Mar, Diabetes 250.00 [facility] [address] [facility] [id number] [address] [place] [address] Mar, [facility] [address] [place] [id number] [address] [place] [address] Mar, [facility] [address] [place] [id number] [address] [place] [address] Mar, [facility] [address] [place] [id number] [address] [place] [address] Mar, [facility] [address] [place] [id number] [address] [place] [address] Mar, Bipolar I disorder, most rec ent episode (or current) mixed, moderate 296.62 and Major depressive disorder, recurrent episode, severe, specified as with psychotic behavior 296.34 [facility] [address] [place] [id number] [address] [place] [address] Mar, Magnesium deficiency 275.2 ; Hypokalemia 276.8 ; Nausea & vomiting 787.01 and Diabetes mellitus type 2, uncontrolled 250.02 [place] [address] [address] Feb, [place] [address] [address] Feb, Bipolar I disorder, most rec ent episode (or current) mixed, moderate 296.[address] [address] Feb, Nausea and vomiting 787.01 ; Left elbow pain 719.42 ; Anuria 788.5 and Diabetes 250.[address] [address] Feb, [address] [address] Feb, Hypopotassemia 276.8 and Hyp okalemia 276.[address] [address] Feb, Hypopotassemia 276.8 and Hyp okalemia 276.[address] [address] Feb, Seborrheic keratoses 702.[address] [address] Feb, Hypopotassemia 276.8 and Low magnesium levels 275.2 [place] [address] [address] January, [place] [address] [address] January, [facility] [address] [address] January, [place] [address] [address] January, Scalp lesion 709.9 [facility] [address] [id number] [address] [place] [address] January, [facility] [address] [id number] [address] [place] [address] Dec, Tear of medial cartilage or meniscus of knee, current 836.0 and 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 [facility] [address] [id number] [address] [place] [address] Dec, [facility] [address] [id number] [address] [place] [id number] Dec, [facility] [address] [id number] [address] [place] [address] Dec, Squamous cell carcinoma, 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 [facility] [address] [id number] [address] [place] [address] Dec, [facility] [address] [id number] [address] [place] [address] Dec, [facility] [address] [id number] [address] [place] [address] Nov, [facility] [address] [id number] [address] [place] [phone] Nov, [facility] [address] [id number] [address] [place] [address] Nov, [facility] [address] [id number] [address] [place] [phone] Nov, [facility] [address] [id number] [address] [place] [id number] Nov, [facility] [address] [id number] [address] [place] [phone] Nov, [facility] [address] [id number] [address] [place] [address] Nov, [facility] [address] [id number] [address] [place] [address], [place] [address] Nov, 2014 [facility] [address] [id number] [address] [place] [address], [place] [address] Nov, 2014 [facility] [address] [id number] [address] [place] [address], [place] [address] Nov, 2014 [facility] [address] [id number] [address] [place] [address], [place] [address] Nov, 2014 [facility] [address] [id number] [address] [place] [address], [place] [address] Nov, [facility] [address] [id number] [address] [place] [address], [place] [address] Oct, 2014 [facility] [address] [id number] [address] [place] [address], [place] [address] Oct, 2014 [facility] [address] [id number] [address] [place] [address], [place] [address] Oct, 2014 [facility] [address] [id number] [address] [place] [address], [place] [address] Oct, 2014 [facility] [address] [id number] [address] [place] [address], [place] [address] Oct, 2014 [facility] [address] [id number] [address] [place] [address], [place] [address] Oct, 2014 [facility] [address] [id number] [address] [place] [address], [place] [address] Oct, 2014 [facility] [address] [id number] [address] [place] [address], [place] [address] Oct, 2014 [facility] [address] [id number] [address] [place] [address], [place] [address] Oct, 2014 [facility] [address] [id number] [address] [place] [address], [place] [address] Sep, [facility] [address] [id number] [address] [place] [address] Sep, [facility] [address] [id number] [address] [place] [address], [place] [address] Sep, [facility] [address] [id number] [address] [place] [address], [place] [address] Sep, [facility] [address] [id number] [address] [place] [address], [place] [address] Sep, [facility] [address] [id number] [address] [place] [address], [place] [address] Sep, [facility] [address] [id number] [address] [place] [address], [place] [address] Sep, [facility] [address] [id number] [address] [place] [address], [place] [address] Sep, [facility] [address] [id number] [address] [place] [address], [place] [address] Sep, [facility] [address] [id number] [address] [place] [address], [place] [address] Sep, [facility] [address] [id number] [address] [place] [address], [place] [address] Sep, [facility] [address] [id number] [address] [place] [address], [place] [address] Sep, [facility] [address] [id number] [address] [place] [address], [place] [address] Sep, [facility] [address] [id number] [address] [place] [address], [place] [address] Sep, [facility] [address] [id number] [address] [place] [address], [place] [address] Sep, [facility] [address] [id number] [address] [place] [address], [place] [address] Sep, [facility] [address] [id number] [address] [place] [address], [place] [address] Aug, [facility] [address] [id number] [facility] [place] [address] Aug, [facility] [address] [id number] [facility] [place] [address] Aug, [facility] [address] [id number] [facility] [place] [address] Aug, [facility] [address] [id number] [facility] [place] [address] Aug, [facility] [address] [id number] [address] [place] [address], [place] [address] Aug, [facility] [address] [id number] [address] [place] [address], [place] [address] Aug, [facility] [address] [id number] [address] [place] [address], [place] [address] Aug, [facility] [address] [id number] [address] [place] [address], [place] [address] Aug, [facility] [address] [id number] [address] [place] [address], [place] [address] Aug, [facility] [address] [id number] [address] [place] [address], [place] [address] Aug, [facility] [address] [place] [id number] Aug, [facility] [address] [id number] [address] [place] [address], [place] [address] Aug, [facility] [address] [id number] [address] [place] [address], [place] [address] Aug, [facility] [address] [id number] [address] [place] [address], [place] [address] Aug, [facility] [address] [id number] [address] [place] [address], [place] [address] Aug, [facility] [address] [id number] [address] [place] [address], [place] [address] Aug, [facility] [address] [id number] [address] [place] [address], [place] [address] Aug, [facility] [address] [id number] [address] [place] [address], [place] [address] Aug, [facility] [address] [id number] [address] [place] [address], [place] [address] Aug, [facility] [address] [id number] [address] [place] [address], [place] [address] Aug, [facility] [address] [id number] [address] [place] [address], [place] [address] Aug, [facility] [address] [id number] [address] [place] [address], [place] [address] Aug, [facility] [address] [id number] [address] [place] [address], [place] [address] Aug, [facility] [address] [id number] [address] [place] [address], [place] [address] Aug, [facility] [address] [id number] [address] [place] [address], [place] [address] Aug, [facility] [address] [id number] [address] [place] [address], [place] [address] Aug, [facility] [address] [id number] [address] [place] [address], [place] [address] Aug, [facility] [address] [id number] [address] [place] [address], [place] [address] Aug, [facility] [address] [id number] [address] [place] [address], [place] [address] Aug, [facility] [address] [id number] [address] [place] [address], [place] [address] Jul, [facility] [address] [id number] [address] [place] [address], [place] [address] Jul, [facility] [address] [id number] [address] [address] Jul, [facility] [address] [id number] [address] [place] [address], [place] [address] Jul, [facility] [address] [id number] [address] [place] [address], [place] [address] Jul, [facility] [address] [id number] [address] [place] [address], [place] [address] Jul, [facility] [address] [id number] [address] [place] [address] Jul, [facility] [address] [id number] [address] [place] [address], [place] [address] Jul, [facility] [address] [id number] [address] [place] [address], [place] [address] Jul, [facility] [address] [id number] [address] [place] [address], [place] [address] Jul, [facility] [address] [id number] [address] [place] [address], [place] [address] Jun, [facility] [address] [id number] [address] [place] [address], [place] [address] Jun, [facility] [address] [id number] [address] [place] [address] Jun, [facility] [address] [id number] [address] [place] [address] Jun, [facility] [address] [id number] [address] [place] [address] Jun, [facility] [address] [id number] [address] [place] [address], [place] [address] Jun, [facility] [address] [id number] [address] [place] [address] Jun, [facility] [address] [id number] [address] [place] [address] Jun, [facility] [address] [id number] [address] [place] [address], [place] [address] Jun, [facility] [address] [id number] [address] [place] [address], [place] [address] Jun, [facility] [address] [id number] [address] [place] [address], [place] [address] 29 May, 2013 [facility] [address] [id number] [address] [place] [address], [place] [address] 29 May, 2013 [facility] [address] [id number] [address] [place] [address], [place] [address] 26 May, 2013 [facility] [address] [id number] [address] [place] [address], [place] [address] 26 May, 2013 [facility] [address] [id number] [address] [place] [address], [place] [address] 17 May, 2013 [facility] [address] [id number] [address] [place] [address], [place] [address] 17 May, 2013 [facility] [address] [id number] [address] [place] [address], [place] [address] 15 May, 2013 [facility] [address] [id number] [address] [place] [address], [place] [address] 15 May, 2013 [facility] [address] [id number] [address] [place] [address], [place] [address] 15 May, 2013 [facility] [address] [id number] [address] [place] [address], [place] [address] 15 May, 2013 [facility] [address] [id number] [address] [place] [address], [place] [address] 10 May, 2013 [facility] [address] [id number] [address] [place] [address], [place] [address] 10 May, 2013 [facility] [address] [id number] [address] [place] [address], [place] [address] 09 May, 2013 [facility] [address] [id number] [address] [place] [address], [place] [address] May, [facility] [address] [id number] [facility] [place] [address] May, [facility] [address] [id number] [address] [place] [address], [place] [address] May, [facility] [address] [id number] [address] [place] [address], [place] [address] Apr, [facility] [address] [id number] [address] [place] [address], [place] [address] Apr, [facility] [address] [id number] [address] [place] [address], [place] [address] Apr, [facility] [address] [id number] [address] [place] [address], [place] [address] Apr, [facility] [address] [id number] [address] [place] [address], [place] [address] Apr, [facility] [address] [id number] [address] [place] [address], [place] [address] Apr, [facility] [address] [id number] [address] [place] [address], [place] [address] Apr, [facility] [address] [id number] [address] [place] [address], [place] [address] Apr, [facility] [address] [id number] [address] [place] [address], [place] [address] Apr, [facility] [address] [id number] [address] [place] [address], [place] [address] Apr, [facility] [address] [id number] [address] [place] [address], [place] [address] Apr, [facility] [address] [id number] [address] [place] [address], [place] [address] Apr, [facility] [address] [id number] [address] [place] [address], [place] [address] Apr, [facility] [address] [id number] [address] [place] [address], [place] [address] Apr, [facility] [address] [id number] [address] [place] [address], [place] [address] Apr, [facility] [address] [id number] [address] [place] [address], [place] [address] Mar, [facility] [address] [id number] [address] [place] [address], [place] [address] Mar, [facility] [address] [id number] [address] [place] [address], [place] [address] Mar, [facility] [address] [id number] [address] [place] [address], [place] [address] Mar, [facility] [address] [id number] [address] [place] [address], [place] [address] Mar, [facility] [address] [id number] [address] [place] [address], [place] [address] Mar, [facility] [address] [id number] [address] [place] [address], [place] [address] Mar, [facility] [address] [id number] [address] [place] [address], [place] [address] Mar, [facility] [address] [id number] [address] [place] [address], [place] [address] Mar, [facility] [address] [id number] [address] [place] [address], [place] [address] Mar, [facility] [address] [id number] [address] [place] [address], [place] [address] Mar, [facility] [address] [id number] [address] [place] [address], [place] [address] Mar, [facility] [address] [id number] [address] [place] [address], [place] [address] Mar, [facility] [address] [id number] [address] [place] [address], [place] [address] Mar, [facility] [address] [id number] [facility] [place] [address] Mar, [facility] [address] [id number] [facility] [place] [address] Mar, [facility] [address] [id number] [facility] [place] [address] Mar, [facility] [address] [id number] [facility] [place] [address] Mar, [facility] [address] [id number] [facility] [place] [address] Feb, [facility] [address] [id number] [facility] [place] [address] Feb, [facility] [address] [id number] [address] [place] [address], [place] [address] Feb, [facility] [address] [id number] [address] [place] [address], [place] [address] Feb, [facility] [address] [id number] [address] [place] [address], [place] [address] Feb, [facility] [address] [id number] [address] [place] [address], [place] [address] Feb, [facility] [address] [id number] [address] [place] [address], [place] [address] Feb, [facility] [address] [id number] [address] [place] [address], [place] [address] Feb, [facility] [address] [id number] [address] [place] [address], [place] [address] Feb, [facility] [address] [id number] [address] [place] [address], [place] [address] Feb, [facility] [address] [id number] [address] [place] [address], [place] [address] Feb, [facility] [address] [id number] [address] [place] [address], [place] [address] Feb, [facility] [address] [id number] [facility] [place] [address] Feb, [facility] [address] [id number] [facility] [place] [address] Feb, [facility] [address] [id number] [facility] [place] [address] January, [facility] [address] [id number] [facility] [place] [address] January, [facility] [address] [id number] [facility] [place] [address] January, [facility] [address] [id number] [address] [place] [address], [place] [address] January, [facility] [address] [id number] [facility] [place] [address] January, [facility] [address] [id number] [address] [place] [address], [place] [address] January, [facility] [address] [id number] [address] [place] [address], [place] [address] January, [facility] [address] [id number] [address] [place] [address], [place] [address] January, [facility] [address] [id number] [address] [place] [address], [place] [address] January, [facility] [address] [id number] [address] [place] [address], [place] [address] January, [facility] [address] [id number] [facility] [place] [address] January, [facility] [address] [id number] [address] [place] [address], [place] [address] January, [facility] [address] [id number] [facility] [place] [address] January, [facility] [address] [id number] [facility], [place] [address] January, [facility] [address] [id number] [address] [place] [address], [place] [address] Dec, [facility] [address] [id number] [address] [place] [address], [place] [address] Dec, [facility] [address] [id number] [address] [place] [address], [place] [address] Dec, [facility] [address] [id number] [address] [place] [address], [place] [address] Dec, [facility] [address] [id number] [address] [place] [address], [place] [address] Dec, [facility] [address] [id number] [address] [place] [address], [place] [address] Dec, [facility] [address] [id number] [address] [place] [address], [place] [address] Dec, [facility] [address] [id number] [address] [place] [address], [place] [address] Dec, [facility] [address] [id number] [address] [place] [address], [place] [address] Dec, [facility] [address] [id number] [address] [place] [address], [place] [address] Dec, [facility] [address] [id number] [address] [place] [address], [place] [address] Nov, [facility] [address] [id number] [address] [place] [address], [place] [address] Nov, [facility] [address] [id number] [address] [place] [address], [place] [address] Nov, [facility] [address] [id number] [address] [place] [address], [place] [address] Nov, [facility] [address] [id number] [address] [place] [address], [place] [address] Nov, [facility] [place] [facility] [address] [id number] [facility] [place] [address] Nov, [facility] [place] [facility] [address] [id number] [facility] [place] [address] Nov, [facility] [place] [facility] [address] [id number] [facility] [place] [address] Nov, [facility] [place] [facility] [address] [id number] [address] [place] [address], [place] [address] Nov, [facility] [place] [facility] [address] [id number] [address] [place] [address], [place] [address] Nov, [facility] [place] [facility] [address] [id number] [address] [place] [address], [place] [address] Oct, [facility] [place] [facility] [address] [id number] [address] [place] [address], [place] [address] Oct, [facility] [place] [facility] [address] [id number] [address] [place] [address], [place] [address] Oct, [facility] [place] [facility] [address] [id number] [address] [place] [address], [place] [address] Oct, [facility] [place] [facility] [address] [id number] [address] [place] [address], [place] [address] Oct, [facility] [place] [facility] [address] [id number] [address] [place] [address], [place] [address] Oct, [facility] [place] [facility] [address] [id number] [address] [place] [address], [place] [address] 14 Oct, 2013 [facility] [place] [facility] [address] [id number] [address] [place] [address], [place] [address] Oct, [facility] [place] [facility] [address] [id number] [address] [place] [address], [place] [address] 05 Oct, 2013 [facility] [place] [facility] [address] [id number] [address] [place] [address], [place] [address] Oct, [facility] [place] [facility] [address] [id number] [address] [place] [address] 04 Oct, 2013 [facility] [address] [id number] [address] [place] [address], [place] [address] Oct, [facility] [address] [id number] [address] [place] [address], [place] [address] Oct, [facility] [address] [id number] [address] [place] [address], [place] [address] Oct, [facility] [address] [id number] [address] [place] [address], [place] [address] Sep, [facility] [address] [id number] [address] [place] [address], [place] [address] Sep, [facility] [address] [id number] [address] [place] [address], [place] [address] Sep, [facility] [address] [id number] [address] [place] [address], [place] [address] Sep, [facility] [address] [id number] [address] [place] [address], [place] [address] Sep, [facility] [address] [id number] [address] [place] [address], [place] [address] Sep, [facility] [address] [id number] [address] [place] [address], [place] [address] Sep, [facility] [address] [id number] [address] [place] [address], [place] [address] Sep, [facility] [address] [id number] [address] [place] [address], [place] [address] Sep, [facility] [address] [id number] [address] [place] [address], [place] [address] Sep, [facility] [address] [id number] [address] [place] [address], [place] [address] Aug, [facility] [address] [id number] [address] [place] [address], [place] [address] Aug, [facility] [address] [id number] [address] [place] [address], [place] [address] Jul, [facility] [address] [id number] [address] [place] [address], [place] [address] Jul, [facility] [address] [id number] [address] [place] [address], [place] [address] Jul, [facility] [address] [id number] [address] [place] [address], [place] [address] Jul, [facility] [address] [id number] [address] [place] [address], [place] [address] Jul, [facility] [address] [id number] [address] [place] [address], [place] [address] Jul, [facility] [address] [id number] [address] [place] [address], [place] [address] Jul, [facility] [address] [id number] [address] [place] [address], [place] [address] Jul, [facility] [address] [id number] [address] [place] [address], [place] [address] Jul, [facility] [address] [id number] [address] [place] [address], [place] [address] Jul, [facility] [address] [id number] [address] [place] [address], [place] [address] Jul, [facility] [address] [id number] [address] [place] [address], [place] [address] Jul, [facility] [place] [facility] [address] [id number] [address] [place] [address], [place] [address] Jul, [facility] [place] [facility] [address] [id number] [address] [place] [address], [place] [address] Jul, [facility] [place] [facility] [address] [id number] [address] [place] [address], [place] [address] Jul, [facility] [address] [id number] [address] [place] [address] Jul, 2012 [facility] [address] [id number] [address] [place] [address], [place] [address] Jul, 2012 [facility] [address] [id number] [address] [place] [address] Jul, [facility] [address] [id number] [address] [place] [address], [place] [address] Jul, [facility] [address] [id number] [address] [place] [address], [place] [address] Jun, 2012 [facility] [address] [id number] [address] [place] [address], [place] [address] Jun, 2012 [facility] [address] [id number] [address] [place] [address], [place] [address] Jun, 2012 [facility] [address] [id number] [address] [place] [address] Jun, 2012 [facility] [address] [id number] [address] [place] [address] Jun, 2012 [facility] [address] [id number] [address] [place] [address] Jun, 2012 [facility] [address] [id number] [address] [place] [address] Jun, [facility] [address] [id number] [address] [place] [address] Jun, 2012 [facility] [address] [id number] [address] [place] [address] Jun, [facility] [address] [id number] [address] [place] [address] Jun, [facility] [address] [id number] [address] [place] [address] Jun, [facility] [address] [id number] [address] [place] [address] May, [facility] [address] [id number] [facility] [place] [address] 25 May, 2012 [facility] [address] [id number] [address] [place] [address], [place] [address] 19 May, 2012 [facility] [address] [id number] [address] [place] [address], [place] [address] 17 May, 2012 [facility] [address] [id number] [address] [place] [address], [place] [address] 11 May, 2012 [facility] [address] [id number] [address] [place] [address], [place] [address] 10 May, 2012 [facility] [address] [id number] [address] [place] [address], [place] [address] 09 May, 2012 [facility] [address] [id number] [address] [place] [address], [place] [address] 05 May, 2013 [facility] [address] [id number] [address] [place] [address], [place] [address] Apr, [facility] [address] [id number] [address] [place] [address], [place] [address] Apr, [facility] [address] [id number] [address] [place] [address], [place] [address] Apr, [facility] [address] [id number] [address] [place] [address], [place] [address] Apr, [facility] [address] [id number] [address] [place] [address], [place] [address] Apr, [facility] [address] [id number] [address] [place] [address], [place] [address] Mar, [facility] [address] [id number] [address] [place] [address], [place] [address] Mar, [facility] [address] [id number] [address] [place] [address], [place] [address] Mar, [facility] [address] [id number] [address] [place] [address], [place] [address] Mar, [facility] [address] [id number] [address] [place] [address], [place] [address] Mar, [facility] [address] [id number] [address] [place] [address], [place] [address] Mar, [facility] [address] [id number] [address] [place] [address], [place] [address] Mar, [facility] [address] [id number] [address] [place] [address], [place] [address] Mar, [facility] [address] [id number] [address] [place] [address], [place] [address] Feb, [facility] [address] [id number] [address] [place] [address], [place] [address] Feb, [facility] [address] [id number] [address] [place] [address], [place] [address] January, [facility] [address] [id number] [address] [place] [address], [place] [address] January, [facility] [address] [id number] [address] [place] [address], [place] [address] Dec, [facility] [address] [id number] [address] [place] [address], [place] [address] Dec, [facility] [address] [id number] [address] [place] [address], [place] [address] Nov, [facility] [address] [id number] [address] [place] [address], [place] [address] Nov, [facility] [address] [id number] [address] [place] [address], [place] [address] Nov, [facility] [address] [id number] [address] [place] [address], [place] [address] Nov, [facility] [address] [id number] [address] [place] [address], [place] [address] Oct, [facility] [address] [id number] [address] [place] [address], [place] [address] Oct, [facility] [address] [id number] [address] [place] [address], [place] [address] Oct, [facility] [address] [id number] [address] [place] [address], [place] [address] 26 Oct, 2012 [facility] [address] [id number] [address] [place] [address], [place] [address] 16 Oct, 2012 [facility] [address] [id number] [address] [place] [address], [place] [address] 14 Oct, 2012 [facility] [address] [id number] [address] [place] [address], [place] [address] 08 Oct, 2012 [facility] [address] [id number] [address] [place] [address], [place] [address] 07 Oct, 2012 [facility] [address] [id number] [address] [place] [address], [place] [address] 03 Oct, 2012 [facility] [address] [id number] [address] [place] [address], [place] [address] Sep, [facility] [address] [id number] [address] [place] [address], [place] [address] Sep, [facility] [address] [id number] [address] [place] [address], [place] [address] Sep, [facility] [address] [id number] [address] [place] [address], [place] [address] Sep, [facility] [address] [id number] [address] [place] [address], [place] [address] Sep, [facility] [address] [id number] [address] [place] [address], [place] [address] Sep, [facility] [address] [id number] [address] [place] [address], [place] [address] Sep, [facility] [address] [id number] [address] [place] [address], [place] [address] Sep, [facility] [address] [id number] [address] [place] [address], [place] [address] Aug, [facility] [address] [id number] [address] [place] [address], [place] [address] Aug, [facility] [address] [id number] [address] [place] [address], [place] [address] Aug, [facility] [address] [id number] [address] [place] [address], [place] [address] Aug, [facility] [address] [id number] [address] [place] [address], [place] [address] Aug, [facility] [address] [id number] [address] [place] [address], [place] [address] Aug, [facility] [address] [id number] [address] [place] [address], [place] [address] Aug, [facility] [address] [id number] [address] [place] [address], [place] [address] Aug, [facility] [address] [id number] [address] [place] [address], [place] [address] Jul, [facility] [address] [id number] [address] [place] [address], [place] [address] Jul, [facility] [address] [id number] [address] [place] [address], [place] [address] Jul, [facility] [place] [address] [id number] [address] [place] [address], [place] [address] Jul, [facility] [place] [address] [id number] [address] [place] [address], [place] [address] Jul, [facility] [place] [address] [id number] [address] [place] [address], [place] [address] Jul, [facility] [place] [address] [id number] [address] [place] [address], [place] [address] Jun, [facility] [address] [id number] [address] [place] [address], [place] [address] 25 Jun, 2012 [facility] [address] [id number] [address] [place] [address], [place] [address] Jun, [facility] [address] [id number] [address] [place] [address], [place] [address] Jun, [facility] [address] [id number] [address] [place] [address], [place] [address] Jun, [facility] [address] [id number] [address] [place] [address], [place] [address] Jun, [facility] [address] [id number] [address] [place] [address], [place] [address] 19 Jun, 2012 [facility] [address] [id number] [address] [place] [address], [place] [address] 10 Jun, 2012 [facility] [address] [id number] [address] [place] [address], [place] [address] 10 Jun, 2012 [facility] [address] [id number] [address] [place] [address], [place] [address] 26 May, 2012 [facility] [address] [id number] [address] [place] [address], [place] [address] 24 May, 2012 [facility] [address] [id number] [address] [place] [address], [place] [address] 18 May, 2012 [facility] [address] [id number] [address] [place] [address], [place] [address] 30 Apr, 2012 [facility] [address] [id number] [address] [place] [address], [place] [address] 29 Apr, 2012 [facility] [address] [id number] [address] [place] [address], [place] [address] 18 Apr, 2012 [facility] [address] [id number] [address] [place] [address], [place] [address] 14 Apr, 2012 [facility] [address] [id number] [address] [place] [address], [place] [address] Apr, [facility] [address] [id number] [address] [place] [address], [place] [address] Apr, [facility] [address] [id number] [address] [place] [address], [place] [address] Mar, [facility] [address] [id number] [address] [place] [address], [place] [address] Mar, [facility] [address] [id number] [address] [place] [address], [place] [address] Mar, [facility] [address] [id number] [address] [place] [address], [place] [address] Mar, [facility] [address] [id number] [address] [place] [address], [place] [address] Feb, [facility] [address] [id number] [address] [place] [address], [place] [address] Feb, [facility] [address] [id number] [address] [place] [address], [place] [address] Feb, [facility] [address] [id number] [address] [place] [address], [place] [address] Feb, [facility] [address] [id number] [address] [place] [address], [place] [address] Feb, [facility] [address] [id number] [address] [place] [address], [place] [address] January, [facility] [address] [id number] [address] [place] [address], [place] [address] January, [facility] [address] [id number] [address] [place] [address], [place] [address] January, [facility] [address] [id number] [address] [place] [address], [place] [address] January, [facility] [address] [id number] [address] [place] [address], [place] [address] January, [facility] [address] [id number] [address] [place] [address], [place] [address] January, [facility] [address] [id number] [address] [place] [address], [place] [address] Dec, [facility] [address] [id number] [address] [place] [address], [place] [address] 24 Dec, 2011 [facility] [address] [id number] [address] [place] [address], [place] [address] 17 Dec, 2011 [facility] [address] [id number] [address] [place] [address], [place] [address] Dec, [facility] [address] [id number] [address] [place] [address], [place] [address] Dec, [facility] [address] [id number] [address] [place] [address], [place] [address] 27 Nov, 2011 [facility] [address] [id number] [address] [place] [address], [place] [address] 14 Nov, 2011 [facility] [address] [id number] [address] [place] [address], [place] [address] Nov, [facility] [address] [id number] [address] [place] [address], [place] [address] 07 Nov, 2011 [facility] [address] [id number] [address] [place] [address], [place] [address] 29 Oct, 2011 [facility] [address] [id number] [address] [place] [address], [place] [address] Oct, [facility] [address] [id number] [address] [place] [address], [place] [address] 24 Oct, 2011 [facility] [address] [id number] [address] [place] [address], [place] [address] 13 Oct, 2011 [facility] [address] [id number] [address] [place] [address], [place] [address] 08 Oct, 2011 [facility] [address] [id number] [address] [place] [address], [place] [address] Sep, [facility] [address] [id number] [address] [place] [address], [place] [address] Sep, [facility] [address] [id number] [address] [place] [address], [place] [address] Sep, [facility] [address] [id number] [address] [place] [address], [place] [address] Sep, [facility] [address] [id number] [address] [place] [address], [place] [address] Sep, [facility] [address] [id number] [address] [place] [address], [place] [address] Sep, [facility] [address] [id number] [address] [place] [address], [place] [address] Aug, [facility] [address] [id number] [address] [place] [address], [place] [address] Aug, [facility] [address] [id number] [address] [place] [address], [place] [address] Aug, [facility] [address] [id number] [address] [place] [address], [place] [address] Jul, [facility] [address] [id number] [address] [place] [address], [place] [address] Jul, [facility] [address] [id number] [address] [place] [address], [place] [address] Jul, [facility] [address] [id number] [address] [place] [address], [place] [address] Jul, [facility] [address] [id number] [address] [place] [address], [place] [address] Jun, [facility] [address] [id number] [address] [place] [address], [place] [address] Jun, [facility] [address] [id number] [address] [place], [place] [address], [place] [address] Jun, [facility] [address] [id number] [address] [place] [address], [place] [address] 10 Jun, 2011 [facility] [address] [id number] [address] [place] [address], [place] [address] 10 Jun, 2011 [facility] [address] [id number] [address] [place] [address], [place] [address] 10 Jun, 2011 [facility] [address] [id number] [address] [place] [address], [place] [address] 11 Mar, 2011 [facility] [address] [id number] [address] [place] [address], [place] [address] 18 Dec, 2010 [facility] [address] [id number] [address] [place] [address], [place] [address] 11 Dec, 2010 [facility] [address] [id number] [address] [place] [address], [place] [address] 18 Nov, 2010 [facility] [address] [id number] [address] [place] [address], [place] [address] 16 Nov, 2010 [facility] [address] [id number] [address] [place] [address], [place] [address] 10 Sep, 2010 [facility] [address] [id number] [address] [place] [address], [place] [address] 31 Aug, 2010 [facility] [address] [id number] [address] [place] [address], [place] [address] 29 Aug, 2010 [facility] [address] [id number] [address] [place] [address], [place] [address] 29 Aug, 2010 [facility] [address] [id number] [address] [place] [address], [place] [address] 29 Aug, 2010 [facility] [address] [id number] [address] [place] [address], [place] [address] 27 Aug, 2010 [facility] [address] [id number] [address] [place] [address], [place] [address] 14 Aug, 2010 [facility] [address] [id number] [address] [place] [address], [place] [address] 08 Aug, 2010 [facility] [address] [id number] [address] [place] [address], [place] [address] 08 Aug, 2010 [facility] [address] [id number] [address] [place] [address], [place] [address] Aug, [facility] [address] [id number] [address] [place] [address], [place] [address] Aug, [facility] [address] [id number] [address] [place] [address], [place] [address] Aug, [facility] [address] [id number] [address] [place] [address], [place] [address] Aug, [facility] [address] [id number] [address] [place] [address], [place] [address] Jul, [facility] [address] [id number] [address] [place] [address], [place] [address] Jul, [facility] [address] [id number] [address] [place] [address], [place] [address] Jul, [facility] [address] [id number] [address] [place] [address], [place] [address] Jul, [facility] [address] [id number] [address] [place] [address], [place] [address] Jul, [facility] [address] [id number] [address] [place] [address], [place] [address] Jul, [facility] [address] [id number] [address] [place] [address], [place] [address] 24 Jun, 2010 [facility] [address] [id number] [address] [place] [address], [place] [address] Jun, [facility] [address] [id number] [address] [place] [address], [place] [address] Jun, [facility] [address] [id number] [address] [place] [address], [place] [address] Jun, [facility] [address] [id number] [address] [place] [address] 16 Apr, 2010 [facility] [address] [id number] [address] [place] [address] 20 Mar, 2010 [facility] [address] [id number] [address] [place] [id number] 17 Feb, 2010 [facility] [address] [id number] [address] [place] [phone] January, [facility] [address] [id number] [address] [place] [address], [place] [address] 15 Dec, 2009 [facility] [address] [id number] [address] [place] [address], [place] [address] Nov, [facility] [address] [id number] [address] [place] [address] Aug, [facility] [address] [id number] [address] [place] [address] Aug, [facility] [address] [id number] [address] [place] [phone] Aug, [facility] [address] [id number] [address] [place] [address] Jul, [facility] [address] [id number] [address] [place] [address] Jul, [facility] [address] [id number] [address] [place] [address] Jul, [facility] [address] [id number] [address] [place] [phone] 30 Jun, 2009 [facility] [address] [id number] [address] [place] [address] 29 Jun, 2009 [facility] [address] [id number] [address] [place] [id number] Jun, [facility] [address] [id number] [address] [place] [address] Jun, [facility] [address] [id number] [address] [place] [phone] Jun, [facility] [address] [facility] [id number] [address] [place] [phone] Jun, [facility] [address] [facility] [id number] [address] [place] [id number] Apr, [facility] [address] [facility] [id number] [address] [place] [phone] Apr, [facility] [address] [facility] [id number] [address] [place] [id number] Feb, [facility] [address] [facility] [id number] [address] [place] [phone] January, [facility] [address] [facility] [id number] [address] [place] [id number] Dec, IMMUNIZATIONS No Known Immunizations SOCIAL HISTORY Never Assessed REASON FOR VISIT PLAN OF CARE VITAL SIGNS Height 67 in 2014-06-09 Weight 329.1 lbs 2014-06-09 Temperature 97.6 degrees Fahrenheit 2014-06-09 Heart Rate 91 bpm 2014-06-09 Respiratory Rate 22 2014-06-09 Blood pressure systolic 171 mmHg 2014-06-09 Blood pressure diastolic 81 mmHg 2014-06-09 MEDICATIONS Unknown Medications RESULTS No Results PROCEDURES Procedure Date Ordered Result Body Site EXTRACRANIAL STUDY Jun 09, 2014 INSTRUCTIONS MEDICATIONS ADMINISTERED No Known Medications MEDICAL (GENERAL) HISTORY Type Description Date Medical History type II diabetes Medical History coronary artery disease stress test Medical History chronic obstructive pulmonary disease (C OPD) Medical History gastroesophageal reflux disease (GERD) Medical History acute renal failure Medical History erectile dysfunction Medical History hyperlipidemia Medical History obesity Medical History skin cancer-basal cell R jainism (removed ) Medical History Arthritis Medical History [...]
--- OUTSIDE RECORDS SUMMARY | 2020-03-01 17:57 | XMS REPORT ---
Author Mic[facility] Address [address] [place] [address] Care Team Providers Care Clinical Account Manager Name Role Phone JAZZLURDESA Unavailable PROBLEMS Type Condition ICD9-CM Code DBY16-ZB Code Onset Dates Condition S tatus SNOMED Code Problem Leukocytosis D72.829 Active 7354663 06 Problem Bipolar I disorder, most recent episode (or curr ent) mixed, moderate F31.62 Active 05671182 Problem Reactive airway disease J45.909 Active 935301549782 Problem Anxiety F41.9 Active 92007623 Problem Insomnia, unspecified type G47.00 Act sharon 035339096 Problem Essential hypertension I10 Active 69785328 Problem Morbid obesity E66.01 Active 59117 6002 Problem Skin cancer C44.90 Active 48198957 7 Problem DM neuro manif type II E11.49 Active 35549003 Problem Mild cognitive impairment G31.84 Acti ve 267858651 Problem Benign prostatic hyperplasia with lower urinary tract symptoms, unspecified morphology N40.1 Active 87431 6007 Problem Chronic pain G89.29 Active 6171274 1 Problem Diabetes E11.9 Active 86814516 Problem Retinal edema H35.81 Active 757757 6 Problem Anemia of chronic illness D63.8 Acti ve 788754413 Problem Falling R29.6 Active 181083999 Problem Pressure ulcer of other site, stage 3 L89.893 Active 813760327 Problem 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 Active 861722171 Problem Eye exam abnormal R93.8 Active 16 7594275 Problem Pure hypercholesterolemia E78.00 Acti ve 688983994 Problem Dysuria R30.0 Active 91586781 Problem Bipolar disorder, in partial remission, most rec ent episode depressed F31.75 Active 26717043 Problem Hypokalemia E87.6 Active 69767339 Problem Other iron deficiency anemia D50.8 A ctive 19706704 Problem Eustachian tube dysfunction, unspecified laterality H69.80 Active 35292210 Problem Primary osteoarthritis of right knee M17.11 Active 866653898448471 Problem Cough R05 Active 85189901 Problem Bipolar disorder F31.9 Active 137 77807 Problem Chronic diastolic (congestive) heart failure I50.3 2 Active 309025722 Problem Psychophysiological insomnia F51.04 A ctive 034752915 Problem Gastroesophageal reflux disease without esophagitis K21.9 Active 933752603 Problem Polyneuropathy associated with underlying disease G63 Active 200747569 Problem Other secondary acute gout, 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 0 Active 053575226 Problem Diabetic polyneuropathy associated with type 2 d iabetes mellitus E11.42 Active 70516753 Problem Chronic lymphocytic leukemia C91.10 A ctive 62386298 Problem Bilateral primary osteoarthritis of knee M17.0 Active 047104190 Problem Type 2 diabetes mellitus with diabetic neuropathy, uns pecified E11.40 Active 37577211 Problem halfway (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 Z79.4 Active 907533290 Problem Lymphocytosis D72.820 Active 505558 09 Problem Mood disorder F39 Active 251014 05 Problem Bipolar I disorder, most recent episode depressed, moderat e F31.32 Active 631791087 ALLERGIES No Information ENCOUNTERS Encounter Location Date Diagnosis [facility] [address] [facility] [id number] [address] [place] [phone] Dec, [facility] [address] [facility] [id number] [address] [place] [phone] Dec, Chronic pain G89.29 [facility] [address] [facility] [id number] [address] [place] [id number] 13 Dec, 2019 [facility] [address] [id number] [address] [place] [id number] Dec, [facility] [address] [facility] [id number] [address] [place] [id number] Dec, Gastroesophageal reflux dise ase without esophagitis K21.9 and Pure hypercholesterolemia E78.00 [facility] [address] [facility] [id number] [address] [place] [phone] Dec, Mood disorder F39 [facility] [address] [facility] [id number] [address] [place] [id number] 31 Nov, 2019 Other secondary acute gout, 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 [facility] [address] [facility] [id number] [address] [place] [phone] Nov, Gastroesophageal reflux dise ase without esophagitis K21.9 [facility] [address] [facility] [id number] [address] [place] [phone] Nov, Chronic pain G89.29 [facility] [address] [facility] [id number] [address] [place] [phone] Nov, Bipolar I disorder, most rec ent episode depressed, moderate F31.32 ; Anxiety F41.9 and Mild cognitive impairment G31.84 [place] [address] [facility] [id number] [address] [place] [id number] Nov, [place] [address] [facility] [id number] [address] [place] [id number] Nov, Syncope, unspecified syncope type R55 [facility] [address] [facility] [id number] [address] [place] [phone] Nov, Mood disorder F39 [facility] [address] [facility] [id number] [address] [place] [phone] Oct, Chronic pain G89.29 [facility] [address] [facility] [id number] [address] [place] [phone] Oct, [facility] [address] [facility] [id number] [address] [place] [id number] Oct, Mood disorder F39 [facility] [address] [facility] [id number] [address] [place] [phone] Oct, [facility] [address] [facility] [id number] [address] [place] [address] Oct, Bipolar disorder, in partial remission, most recent episode depressed F31.75 and Mild cognitive impairment G31.84 [facility] [address] [facility] [id number] [address] [place] [phone] Oct, Mood disorder F39 [facility] [address] [id number] [address] [place] [phone] Sep, [facility] [address] [id number] [address] [place] [phone] Sep, Mood disorder F39 [facility] [address] [id number] [address] [place] [address] Sep, Bipolar disorder, in partial remission, most recent episode depressed F31.75 and Mild cognitive impairment G31.84 [facility] [address] [id number] [address] [place] [id number] Sep, Mood disorder F39 [facility] [address] [id number] [address] [place] [id number] Sep, [facility] [address] [id number] [address] [place] [id number] Sep, Mood disorder F39 [facility] [address] [id number] [address] [place] [id number] Sep, [facility] [address] [id number] [address] [place] [phone] Aug, Mood disorder F39 [facility] [address] [id number] [address] [place] [phone] Aug, [facility] [address] [id number] [address] [place] [phone] Aug, [facility] [address] [id number] [address] [place] [id number] Aug, [facility] [address] [id number] [address] [place] [phone] Aug, [facility] [address] [id number] [address] [place] [phone] Aug, [facility] [address] [id number] [address] [place] [phone] Aug, [facility] [address] [id number] [address] [place] [phone] Aug, [facility] [address] [id number] [address] [place] [phone] Aug, Essential hypertension I10 [facility] [address] [id number] [address] [place] [id number] Aug, Bipolar disorder, in partial remission, most recent episode depressed F31.75 and Mild cognitive impairment G31.84 [facility] [address] [id number] [address] [place] [id number] Aug, Mood disorder F39 [facility] [address] [id number] [address] [place] [id number] Aug, [facility] [address] [id number] [address] [place] [id number] Aug, Bipolar disorder, in partial remission, most recent episode depressed F31.75 and Mild cognitive impairment G31.84 [facility] [address] [id number] [address] [place] [id number] Jul, Bipolar disorder, in partial remission, most recent episode depressed F31.75 and Mild cognitive impairment G31.84 [facility] [address] [id number] [address] [place] [address] Jul, Psychophysiological insomnia F51.04 [facility] [address] [id number] [address] [place] [id number] Jul, [facility] [address] [id number] [address] [place] [phone] Jul, [facility] [address] [id number] [address] [place] [phone] Jul, [facility] [address] [id number] [address] [place] [id number] Jul, [facility] [address] [id number] [address] [place] [id number] Jul, [place] [address] [facility] [id number] [address] [place] [phone] Jul, [place] [address] [facility] [id number] [address] [place] [id number] Jul, Bipolar disorder, in partial remission, most recent episode depressed F31.75 and Mild cognitive impairment G31.84 [place] [address] [place] [id number] [address] [place] [phone] Jul, Chronic pain G89.29 ; Diabet es E11.9 ; Essential hypertension I10 ; Ill feeling R68.89 ; Local infection of the skin and subcutaneous tissue, unspecified L08.9 and Other injury of unspecified body region, initial encounter T14.8XXA [place] [address] [place] [id number] [address] [place] [phone] Jun, Bipolar disorder, in partial remission, most recent episode depressed F31.75 and Mild cognitive impairment G31.84 [place] [address] [place] [id number] [address] [place] [phone] Jun, [place] [address] [facility] [id number] [address] [place] [id number] Jun, Bipolar disorder, in partial remission, most recent episode depressed F31.75 and Mild cognitive impairment G31.84 [place] [id number] [place] [address] Jun, Psychophysiological insomnia F51.04 [place] [address] [place] [id number] [address] [place] [id number] Jun, Psychophysiological insomnia F51.04 ; Chronic pain G89.29 ; Bipolar I disorder, most recent episode (or current) mixed, moderate F31.62 ; 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 ; Polyneuropathy associated with underlying disease G63 ; Type 2 diabetes mellitus with diabetic neuropathy, unspecified E11.40 ; long term care phlebotomist (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 Z79.4 and Hyperglycemia R73.[address] [id number] [address] [place] [phone] Jun, Bipolar disorder, in partial remission, most recent episode depressed F31.75 and Mild cognitive impairment G31.84 [facility] [address] [id number] [address] [place] [phone] Jun, [facility] [address] [facility] [id number] [address] [place] [phone] Jun, Bipolar disorder F31.9 [facility] [address] [facility] [id number] [address] [place] [phone] May, Bipolar disorder, in partial remission, most recent episode depressed F31.75 and Mild cognitive impairment G31.84 [facility] [address] [id number] [address] [place] [address] May, [facility] [address] [facility] [id number] [address] [place] [id number] Apr, Chronic pain G89.29 and Bipo lar disorder F31.9 [facility] [address] [id number] [address] [place] [id number] Mar, Bipolar disorder F31.9 and C hronic pain G89.29 [facility] [address] [facility] [id number] [address] [place] [phone] Feb, Bipolar disorder F31.9 [facility] [address] [id number] [address] [place] [id number] Feb, Cellulitis of right upper ex tremity L03.113 and Skin abrasion T14.8XXA [facility] [address] [id number] [address] [place] [phone] Feb, Bipolar disorder, in partial remission, most recent episode depressed F31.75 and Mild cognitive impairment G31.84 [facility] [address] [id number] [address] [place] [id number] Feb, Chronic pain G89.29 [facility] [address] [facility] [id number] [address] [place] [id number] Feb, Bipolar disorder, in partial remission, most recent episode depressed F31.75 and Mild cognitive impairment G31.84 [facility] [address] [id number] [address] [place] [phone] January, Bipolar disorder, in partial remission, most recent episode depressed F31.75 and Mild cognitive impairment G31.84 [facility] [address] [id number] [address] [place] [phone] January, Chronic pain G89.29 and Bipo lar disorder F31.9 [facility] [address] [id number] [address] [place] [id number] January, Bipolar disorder, in partial remission, most recent episode depressed F31.75 and Mild cognitive impairment G31.84 [facility] [address] [id number] [address] [place] [phone] Dec, [facility] [address] [id number] [address] [place] [phone] Dec, Chronic pain G89.29 and Bipo lar disorder F31.9 [facility] [address] [id number] [address] [place] [id number] Dec, Edema of both lower extremit ies R60.0 [facility] [address] [id number] [address] [place] [id number] Dec, Bipolar disorder F31.9 [facility] [address] [id number] [address] [place] [phone] Dec, Bipolar disorder, in partial remission, most recent episode depressed F31.75 and Mild cognitive impairment G31.84 [facility] [address] [id number] [address] [place] [phone] Nov, [facility] [address] [id number] [address] [place] [address] Nov, Chronic pain G89.29 [facility] [address] [id number] [address] [place] [id number] Nov, Bipolar disorder, in partial remission, most recent episode depressed F31.75 and Mild cognitive impairment G31.84 [place] [address] [place] [id number] [address] [place] [address] Nov, Bipolar disorder F31.9 [place] [address] [place] [id number] [address] [place] [phone] 04 Nov, 2018 Encounter for Medicare [facility] wellness exam Z00.00 ; Polyneuropathy associated [...] N40.1 and Essential hypertension I10 [place] [address] [place] [id number] [address] [place] [phone] Oct, Chronic pain G89.[address] [address] Oct, Diabetes E11.9 [place] [address] [address] Oct, Bipolar I disorder, most rec ent episode (or current) mixed, moderate F31.62 and Mild cognitive impairment G31.84 [place] [address] [place] [id number] [address] [place] [address] Oct, Bipolar I disorder, most rec ent episode (or current) mixed, moderate F31.62 and Mild cognitive impairment G31.84 [place] [address] [place] [id number] [address] [place] [phone] Sep, Bipolar I disorder, most rec ent episode (or current) mixed, moderate F31.62 and Mild cognitive impairment G31.84 [place] [address] [place] [id number] [address] [place] [phone] Sep, [facility] [address] [facility] [id number] [address] [place] [address] Sep, Diabetes E11.9 ; Hypoxia R09 .02 ; Hyperglycemia R73.9 ; Therapeutic drug monitoring Z51.81 ; BMI 50.0-59.9, adult Z68.43 and Skin cancer C44.90 [place] [address] [facility] [id number] [address] [place] [phone] Sep, Chronic pain G89.29 [place] [address] [facility] [id number] [address] [place] [phone] Sep, Bipolar I disorder, most rec ent episode (or current) mixed, moderate F31.62 [place] [address] [facility] [id number] [address] [place] [phone] Sep, [place] [address] [place] [id number] [address] [place] [phone] Sep, [facility] [address] [facility] [id number] [address] [place] [id number] Aug, Chronic pain G89.29 [place] [address] [facility] [id number] [address] [place] [phone] Aug, Bipolar I disorder, most rec ent episode (or current) mixed, moderate F31.62 [place] [address] [facility] [id number] [address] [place] [phone] Aug, Bipolar I disorder, most rec ent episode (or current) mixed, moderate F31.62 and Mild cognitive impairment G31.84 [place] [address] [facility] [id number] [address] [place] [phone] Jul, [place] [address] [facility] [id number] [address] [place] [id number] Jul, Chronic pain G89.29 [facility] [address] [facility] [id number] [address] [place] [phone] Jul, Bipolar I disorder, most rec ent episode (or current) mixed, moderate F31.62 and Mild cognitive impairment G31.84 [place] [id number] [facility] [id number] [address] [place] [id number] Jul, Bipolar I disorder, most rec ent episode (or current) mixed, moderate F31.62 and MCI (mild cognitive impairment) G31.84 [facility] [address] [facility] [id number] [address] [place] [phone] Jul, [facility] [address] [facility] [id number] [address] [place] [phone] Jul, [place] [address] [facility] [id number] [address] [place] [id number] Jul, Bipolar I disorder, most rec ent episode (or current) mixed, moderate F31.62 [place] [id number] [facility] [id number] [address] [place] [phone] Jul, Chronic pain G89.29 [place] [address] [facility] [id number] [address] [place] [id number] Jun, Bipolar I disorder, most rec ent episode (or current) mixed, moderate F31.62 [place] [address] [facility] [id number] [address] [place] [id number] Jun, Pre-procedure lab exam Z01.8 12 [place] [address] [place] [id number] [address] [place] [phone] Jun, [facility] [address] [facility] [id number] [place] [id number] Jun, [facility] [address] [facility] [id number] [address] [place] [id number] Jun, [place] [address] [place] [id number] [address] [place] [address] Jun, Forgetfulness R68.89 ; Pre-s yncope R55 ; Localized edema R60.0 ; Other iron deficiency anemia D50.8 and BMI 50.0-59.9, adult Z68.43 [facility] [address] [facility] [id number] [address] [place] [id number] Jun, Chronic pain G89.29 [facility] [address] [facility] [id number] [address] [place] [phone] 05 Jun, 2018 Chronic pain G89.29 [facility] [address] [facility] [id number] [address] [place] [phone] Jun, Bipolar I disorder, most rec ent episode (or current) mixed, moderate F31.62 [facility] [address] [facility] [id number] [address] [place] [phone] May, Chronic pain G89.29 [facility] [address] [facility] [id number] [address] [place] [id number] Apr, [place] [address] [facility] [id number] [address] [place] [phone] Apr, Chronic pain G89.29 [facility] [address] [place] [id number] [address] [place] [phone] Apr, Primary osteoarthritis of ri ght knee M17.11 [facility] [address] [facility] [id number] [address] [place] [id number] Mar, [facility] [address] [facility] [id number] [address] [place] [id number] Mar, BMI 50.0-59.9, adult Z68.43 and Bipolar disorder, in partial remission, most recent episode depressed F31.75 [facility] [address] [facility] [id number] [address] [place] [id number] Mar, Diabetes E11.9 ; Pure hyperc holesterolemia E78.00 ; Essential hypertension I10 ; Nausea with vomiting, unspecified R11.2 and Headache, unspecified headache type R51 [facility] [address] [facility] [id number] [address] [place] [id number] Mar, Bipolar I disorder, most rec ent episode (or current) mixed, moderate F31.62 [place] [address] [address] [facility] [id number] [address] [place] [id number] Mar, Bipolar I disorder, most rec ent episode (or current) mixed, moderate F31.62 [facility] [address] [facility] [id number] [address] [place] [address] [address] Mar, Chronic pain G89.29 [facility] [address] [facility] [id number] [address] [place] [id number] Mar, Bipolar I disorder, most rec ent episode (or current) mixed, moderate F31.62 [place] [address] [address] [facility] [id number] [address] [place] [phone] Feb, Bipolar I disorder, most rec ent episode (or current) mixed, moderate F31.62 [place] [address] [address] [facility] [id number] [address] [place] [id number] Feb, Chronic pain G89.29 [place] [address] [address] [place] [id number] [address] [place] [phone] Feb, Decubitus ulcer of right josselin t, stage 3 L89.893 and BMI 50.0-59.9, adult Z68.43 [place] [address] [facility] [id number] [address] [place] [phone] Feb, Bipolar I disorder, most rec ent episode (or current) mixed, moderate F31.62 [place] [address] [address] [place] [id number] [address] [place] [phone] Feb, [facility] [address] [facility] [id number] [address] [place] [phone] January, [place] [address] [address] [facility] [id number] [address] [place] [phone] January, Chronic pain G89.29 [facility] [address] [facility] [id number] [address] [place] [phone] January, Bipolar I disorder, most rec ent episode (or current) mixed, moderate F31.62 [place] [address] [address] [place] [id number] [address] [place] [id number] January, Bipolar I disorder, most rec ent episode (or current) mixed, moderate F31.62 [place] [address] [place] [id number] [address] [place] [phone] Dec, Bipolar I disorder, most rec ent episode (or current) mixed, moderate F31.62 and BMI 50.0-59.9, adult Z68.43 [place] [address] [place] [id number] [place] [phone] Dec, Bipolar I disorder, most rec ent episode (or current) mixed, moderate F31.62 [place] [address] [address] Dec, Chronic pain G89.29 [place] [address] [address] Dec, DM neuro manif type II E11.4 9 ; Right flank pain R10.9 ; 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 Z79.891 ; Encounter for medication monitoring Z51.81 and BMI 50.0-59.9, adult Z68.43 [place] [address] [address] Dec, Bipolar I disorder, most rec ent episode (or current) mixed, moderate F31.62 [place] [address] [place] [id number] [address] [place] [id number] Nov, Bipolar I disorder, most rec ent episode (or current) mixed, moderate F31.62 [place] [address] [place] [id number] [address] [place] [phone] Nov, Chronic pain G89.29 [place] [address] [place] [id number] [place] [phone] Nov, Bipolar I disorder, most rec ent episode (or current) mixed, moderate F31.62 [place] [address] [place] [id number] [address] [place] [id number] Nov, Hypokalemia E87.6 [facility] [address] [place] [id number] [address] [place] [phone] Nov, Bipolar I disorder, most rec ent episode (or current) mixed, moderate F31.62 [facility] [address] [place] [id number] [place] [phone] Oct, Chronic pain G89.29 [place] [address] [address] Oct, BMI 50.0-59.9, adult Z68.43 and Bipolar I disorder, most recent episode (or current) mixed, moderate F31.62 [place] [address] [place] [id number] [place] [phone] Oct, Bipolar I disorder, most rec ent episode (or current) mixed, moderate F31.62 [place] [address] [address] Oct, [place] [address] [phone] Oct, Hypokalemia E87.6 [place] [address] [place] [id number] [place] [phone] Oct, DM neuro manif type II E11.4 9 [place] [address] [address] Oct, Bipolar I disorder, most rec ent episode (or current) mixed, moderate F31.62 [place] [address] [place] [id number] [address] [place] [phone] Oct, Bipolar I disorder, most rec ent episode (or current) mixed, moderate F31.62 [place] [address] [place] [id number] [address] [place] [id number] 14 Oct, 2017 Hyperkalemia E87.5 ; Falling R29.6 ; BMI 50.0-59.9, adult Z68.43 and Acute left ankle pain M25.572 [facility] [address] [place] [id number] [address] [place] [id number] 08 Oct, 2017 DM neuro manif type II E11.4 9 [facility] [address] [place] [id number] [address] [place] [phone] Oct, [place] [address] [place] [id number] [address] [place] [phone] Sep, Chronic pain G89.29 [place] [address] [place] [id number] [address] [place] [phone] Sep, [place] [address] [address] Sep, Bilateral primary osteoarthr itis of knee M17.0 [place] [address] [address] Sep, Generalized edema R60.1 [place] [address] [address] [place] [id number] [place] [phone] 16 Sep, 2017 Bipolar I disorder, most rec ent episode (or current) mixed, moderate F31.62 [place] [address] [address] 15 Sep, 2017 Hypoxia R09.02 ; Other hyper volemia E87.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 ; Anemia of chronic illness D63.8 and BMI 50.0- 59.9, adult Z68.43 [place] [address] [address] [place] [id number] [address] [place] [address] Sep, [place] [address] [address] Sep, Bipolar I disorder, most rec ent episode (or current) mixed, moderate F31.62 [place] [address] [address] Aug, Chronic pain G89.29 [facility] [address] [facility] [id number] [address] [place] [id number] Aug, Generalized edema R60.1 [facility] [address] [facility] [id number] [address] [place] [phone] Aug, [facility] [address] [facility] [id number] [address] [place] [phone] Aug, [facility] [address] [facility] [id number] [address] [place] [id number] 14 Aug, 2017 Bipolar I disorder, most rec ent episode (or current) mixed, moderate F31.62 [facility] [address] [place] [id number] [address] [place] [id number] 07 Aug, 2017 Bipolar I disorder, most rec ent episode (or current) mixed, moderate F31.62 [place] [address] [facility] [id number] [address] [place] [phone] 04 Aug, 2017 Chronic pain G89.29 [facility] [address] [facility] [id number] [address] [place] [phone] 30 Jul, 2017 Bipolar I disorder, most rec ent episode (or current) mixed, moderate F31.62 [facility] [address] [facility] [id number] [address] [place] [address] Jul, Bipolar I disorder, most rec ent episode (or current) mixed, moderate F31.62 and BMI 60.0-69.9, adult Z68.44 [facility] [address] [facility] [id number] [address] [place] [id number] 16 Jul, 2017 Bipolar I disorder, most rec ent episode (or current) mixed, moderate F31.62 [facility] [address] [facility] [id number] [address] [place] [phone] 06 Jul, 2017 Chronic pain G89.29 [facility] [address] [facility] [id number] [address] [place] [phone] Jul, Bipolar I disorder, most rec ent episode (or current) mixed, moderate F31.62 [facility] [address] [id number] [address] [place] [phone] Jun, Polyneuropathy associated wi th underlying disease G63 and Diabetes E11.9 [facility] [address] [facility] [id number] [address] [place] [id number] 16 Jun, 2017 Bipolar I disorder, most rec ent episode (or current) mixed, moderate F31.62 [facility] [address] [facility] [id number] [address] [place] [phone] Jun, Chronic pain G89.29 [facility] [address] [facility] [id number] [address] [place] [phone] May, Bipolar I disorder, most rec ent episode (or current) mixed, moderate F31.62 [facility] [address] [facility] [id number] [address] [place] [phone] May, Bipolar I disorder, most rec ent episode (or current) mixed, moderate F31.62 [facility] [address] [facility] [id number] [address] [place] [id number] May, Diabetic polyneuropathy asso ciated with type 2 diabetes mellitus E11.42 [facility] [address] [id number] [address] [place] [phone] 18 May, 2017 Bipolar I disorder, most rec ent episode (or current) mixed, moderate F31.62 [facility] [address] [facility] [id number] [address] [place] [id number] May, Bipolar I disorder, most rec ent episode (or current) mixed, moderate F31.62 [facility] [address] [facility] [id number] [address] [place] [phone] May, Chronic pain G89.29 [facility] [address] [facility] [id number] [address] [place] [id number] Apr, Bipolar I disorder, most rec ent episode (or current) mixed, moderate F31.62 [place] [id number] [id number] [address] [place] [phone] Apr, [facility] [address] [facility] [id number] [address] [place] [phone] Apr, Chronic pain G89.29 and DM n euro manif type II E11.49 [facility] [address] [facility] [id number] [address] [place] [phone] Apr, [facility] [address] [facility] [id number] [address] [place] [phone] Apr, Bipolar I disorder, most rec ent episode (or current) mixed, moderate F31.62 [facility] [address] [facility] [id number] [address] [place] [id number] Apr, Chronic pain G89.29 [facility] [address] [place] [id number] [address] [place] [id number] Apr, Iliotibial band syndrome, le ft M76.32 [facility] [address] [facility] [id number] [address] [place] [phone] Apr, Bipolar I disorder, most rec ent episode (or current) mixed, moderate F31.62 [facility] [address] [place] [id number] [address] [place] [phone] Mar, Bipolar I disorder, most rec ent episode (or current) mixed, moderate F31.62 [place] [address] [place] [id number] [address] [place] [phone] Mar, Bipolar I disorder, most rec ent episode (or current) mixed, moderate F31.62 [place] [address] [facility] [id number] [address] [place] [phone] Mar, [facility] [address] [place] [id number] [address] [place] [phone] Mar, Bipolar I disorder, most rec ent episode (or current) mixed, moderate F31.62 [place] [address] [place] [id number] [address] [place] [id number] Mar, Chronic pain G89.29 [facility] [address] [id number] [address] [place] [id number] Mar, Bipolar I disorder, most rec ent episode (or current) mixed, moderate F31.62 [facility] [address] [id number] [address] [place] [id number] Mar, Bipolar I disorder, most rec ent episode (or current) mixed, moderate F31.62 [facility] [address] [id number] [address] [place] [address] Mar, Acute pain of left knee M25. 562 ; Left hip pain M25.552 ; Generalized edema R60.1 and Tongue swelling R22.0 [facility] [address] [id number] [address] [place] [phone] Mar, [facility] [address] [facility] [id number] [address] [place] [id number] Feb, Chronic pain G89.29 [facility] [address] [id number] [address] [place] [id number] Feb, Diabetes E11.9 [facility] [address] [id number] [address] [place] [id number] January, Chronic pain G89.29 [facility] [address] [id number] [address] [place] [id number] January, [facility] [address] [facility] [id number] [address] [place] [id number] January, Bipolar I disorder, most rec ent episode (or current) mixed, moderate F31.62 [facility] [address] [facility] [id number] [address] [place] [id number] Dec, Bipolar I disorder, most rec ent episode (or current) mixed, moderate F31.62 [facility] [address] [facility] [id number] [address] [place] [phone] Dec, Chronic pain G89.29 [facility] [address] [id number] [address] [place] [phone] Dec, Bipolar I disorder, most rec ent episode (or current) mixed, moderate F31.62 [facility] [address] [facility] [id number] [address] [place] [id number] Dec, Diabetes E11.9 ; Essential h ypertension I10 ; Chronic pain G89.29 and Morbid obesity E66.01 [facility] [address] [facility] [id number] [address] [place] [phone] Dec, [facility] [address] [facility] [id number] [address] [place] [id number] Dec, Bipolar I disorder, most rec ent episode (or current) mixed, moderate F31.62 [place] [id number] [facility] [id number] [address] [place] [phone] Dec, Bipolar I disorder, most rec ent episode (or current) mixed, moderate F31.62 [facility] [address] [facility] [id number] [address] [place] [phone] Nov, Chronic pain G89.29 [facility] [address] [id number] [address] [place] [id number] Nov, Bipolar I disorder, most rec ent episode (or current) mixed, moderate F31.62 [facility] [address] [facility] [id number] [address] [place] [phone] Nov, [facility] [address] [facility] [id number] [address] [place] [id number] Nov, Bipolar I disorder, most rec ent episode (or current) mixed, moderate F31.62 [facility] [address] [facility] [id number] [address] [place] [phone] Nov, Bipolar I disorder, most rec ent episode (or current) mixed, moderate F31.62 [place] [id number] [facility] [id number] [address] [place] [phone] Nov, [place] [address] [id number] [address] [place] [phone] Nov, [facility] [address] [id number] [address] [place] [id number] Nov, [facility] [address] [facility] [id number] [address] [place] [phone] Oct, Chronic pain G89.29 [facility] [address] [facility] [id number] [address] [place] [phone] Oct, Bipolar I disorder, most rec ent episode (or current) mixed, moderate F31.62 [facility] [address] [facility] [id number] [address] [place] [phone] Oct, [facility] [address] [facility] [id number] [address] [place] [phone] Oct, Chronic pain G89.29 ; Diabet es E11.9 ; Anxiety F41.9 and 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 [facility] [address] [facility] [id number] [address] [place] [phone] Oct, [facility] [address] [facility] [id number] [address] [place] [phone] Oct, Diabetes E11.9 [facility] [address] [facility] [id number] [address] [place] [id number] Oct, Bipolar I disorder, most rec ent episode (or current) mixed, moderate F31.62 [facility] [address] [id number] [address] [place] [id number] Sep, Chronic pain G89.29 [facility] [address] [facility] [id number] [address] [place] [id number] Sep, Chronic pain G89.29 [facility] [address] [facility] [id number] [address] [place] [address] Aug, Chronic pain G89.29 [facility] [address] [place] [id number] [address] [place] [phone] Jul, [facility] [address] [facility] [id number] [address] [place] [id number] Jul, Diabetes E11.9 [facility] [address] [place] [id number] [address] [place] [id number] Jul, Chronic pain G89.29 [place] [address] [place] [id number] [address] [place] [id number] Jul, Bipolar I disorder, most rec ent episode (or current) mixed, moderate F31.62 [place] [address] [place] [id number] [address] [place] [id number] Jun, Bipolar I disorder, most rec ent episode (or current) mixed, moderate F31.62 [place] [address] [place] [id number] [address] [place] [id number] Jun, [place] [address] [place] [id number] [place] [phone] Jun, Bipolar I disorder, most rec ent episode (or current) mixed, moderate F31.62 [place] [address] [place] [id number] [address] [place] [id number] May, Insomnia, unspecified type G 47.00 [place] [address] [place] [id number] [address] [place] [phone] May, Bipolar I disorder, most rec ent episode (or current) mixed, moderate F31.62 [place] [address] [place] [id number] [address] [place] [id number] 14 May, 2016 [place] [address] [place] [id number] [address] [place] [id number] 08 May, 2016 Bipolar I disorder, most rec ent episode (or current) mixed, moderate F31.62 [place] [address] [place] [id number] [address] [place] [phone] 06 May, 2016 Diabetes E11.9 and Essential hypertension I10 [place] [address] [facility] [id number] [address] [place] [phone] Apr, Chronic pain G89.29 [place] [address] [facility] [id number] [address] [place] [phone] Apr, Bipolar I disorder, most rec ent episode (or current) mixed, moderate F31.62 [place] [address] [facility] [id number] [address] [place] [phone] Apr, [place] [address] [facility] [id number] [address] [place] [phone] Apr, [place] [address] [facility] [id number] [address] [place] [address] Mar, Chronic pain G89.29 ; Headac he, unspecified headache type R51 ; Neuropathy G62.9 ; Pain of right hip joint M25.551 and Essential hypertension I10 [place] [address] [facility] [id number] [address] [place] [address] Mar, Chronic pain G89.29 [place] [address] [facility] [id number] [address] [place] [id number] Mar, Bipolar I disorder, most rec ent episode (or current) mixed, moderate F31.62 [place] [address] [address] [facility] [id number] [address] [place] [id number] Feb, Bipolar I disorder, most rec ent episode (or current) mixed, moderate F31.62 and Insomnia, unspecified type G47.00 [place] [address] [address] [facility] [id number] [address] [place] [phone] Feb, Chronic pain G89.29 [place] [address] [address] [facility] [id number] [address] [place] [id number] Feb, Bipolar I disorder, most rec ent episode (or current) mixed, moderate F31.62 [place] [address] [address] [facility] [id number] [address] [place] [id number] January, Bipolar I disorder, most rec ent episode (or current) mixed, moderate F31.62 [facility] [address] [id number] [address] [place] [id number] January, Chronic pain G89.29 [facility] [address] [facility] [id number] [address] [place] [id number] January, Chronic pain G89.29 and Esse ntial hypertension I10 [facility] [address] [facility] [id number] [address] [place] [phone] January, Bipolar I disorder, most rec ent episode (or current) mixed, moderate F31.62 [facility] [address] [id number] [address] [place] [phone] Dec, [facility] [address] [facility] [id number] [address] [place] [phone] Dec, [facility] [address] [facility] [id number] [address] [place] [phone] Dec, [facility] [address] [facility] [id number] [address] [place] [id number] Dec, [facility] [address] [place] [id number] [address] [place] [id number] Nov, Reactive airway disease J45. 909 [facility] [address] [place] [id number] [address] [place] [phone] Nov, [facility] [address] [facility] [facility] [place] [id number] [address] [place] [address] Nov, [facility] [address] [facility] [place] [id number] [address] [place] [address] Nov, [facility] [address] [place] [id number] [address] [place] [address] Nov, [facility] [address] [place] [id number] [address] [place] [address] Nov, Onychomycosis B35.1 ; Hammer toe M20.40 ; Unity or callus L84 and DM neuro manif type II E11.49 [place] [id number] [place] [address] Nov, Chronic pain G89.29 ; Leukoc ytosis D72.829 and Diabetes E11.9 [facility] [address] [place] [id number] [address] [place] [address] Nov, [place] [address] [address] Oct, Bronchitis J40 [place] [address] [place] [address] Oct, [place] [address] [address] Oct, [place] [address] [address] Oct, Mastoiditis, unspecified lat erality H70.90 and Type 2 diabetes mellitus with complication E11.8 [place] [address] [address] Sep, [place] [address] [address] Sep, Dysuria R30.0 ; Cough R05 ; Benign prostatic hyperplasia with lower urinary tract symptoms, unspecified morphology N40.1 ; Hypokalemia E87.6 and Eustachian tube dysfunction, unspecified laterality H69.80 [place] [address] [address] Sep, Moderate mixed bipolar I dis order F31.62 [place] [address] [address] Sep, Hypokalemia E87.6 [place] [address] [place] [id number] [address] [place] [address] Sep, [place] [address] [address] Sep, Upper respiratory tract infe ction, unspecified type J06.9 [facility] [address] [id number] [address] [place] [address] Aug, [facility] [address] [id number] [address] [place] [address] Aug, Dysuria R30.0 [facility] [address] [id number] [address] [place] [id number] Aug, [facility] [address] [id number] [address] [place] [address] Jul, [facility] [address] [id number] [address] [place] [address] Jul, [facility] [address] [id number] [address] [place] [address] Jul, [facility] [address] [id number] [address] [place] [address] Jul, [facility] [address] [id number] [address] [place] [address] Jun, [facility] [address] [id number] [address] [place] [address] Jun, [facility] [address] [id number] [address] [place] [address] Jun, [facility] [address] [id number] [address] [place] [address] May, [facility] [address] [id number] [address] [place] [address] May, Bipolar I disorder, most rec ent episode (or current) mixed, moderate 296.62 [facility] [address] [id number] [address] [place] [id number] 16 May, 2015 [facility] [address] [id number] [address] [place] [id number] May, Bipolar I disorder, most rec ent episode (or current) mixed, moderate 296.62 and Major depressive disorder, recurrent episode, severe, specified as with psychotic behavior 296.34 [facility] [address] [id number] [address] [place] [address] May, Bipolar I disorder, most rec ent episode (or current) mixed, moderate 296.62 [facility] [address] [facility] [place] [id number] [address] [place] [address] May, [facility] [address] [id number] [address] [place] [address] Apr, [facility] [address] [id number] [address] [place] [address] Apr, [facility] [address] [place] [id number] [address] [place] [address] Apr, Unspecified disorder of kidn ey and ureter 593.9 and Diabetes mellitus type 2, uncontrolled 250.02 [facility] [address] [facility] [place] [id number] [address] [place] [address] Apr, [facility] [address] [id number] [address] [place] [address] Apr, [facility] [address] [facility] [place] [id number] [address] [place] [address] Apr, [facility] [address] [facility] [place] [id number] [address] [place] [address] Apr, [facility] [address] [facility] [place] [id number] [address] [place] [address] Apr, Diabetes mellitus type II, u ncontrolled 250.02 [facility] [address] [facility] [place] [id number] [address] [place] [address] Apr, [facility] [address] [facility] [place] [id number] [address] [place] [address] Mar, [facility] [address] [facility] [place] [id number] [address] [place] [address] Mar, [facility] [address] [facility] [place] [id number] [address] [place] [address] Mar, [facility] [address] [place] [id number] [address] [place] [address] Mar, Major depressive disorder, r ecurrent episode, severe, specified as with psychotic behavior 296.34 and Bipolar I disorder, most recent episode (or current) mixed, moderate 296.62 [facility] [address] [place] [id number] [address] [place] [address] Mar, Diabetes 250.00 ; Anuria 788 .5 ; Nausea and vomiting 787.01 and Diarrhea 787.91 [facility] [address] [place] [id number] [address] [place] [address] Mar, Diabetes 250.00 [facility] [address] [place] [id number] [address] [place] [address] Mar, [facility] [address] [place] [id number] [address] [place] [address] Mar, Diabetes 250.00 [facility] [address] [facility] [place] [id number] [address] [place] [address] Mar, [facility] [address] [place] [id number] [address] [place] [address] Mar, [facility] [address] [place] [id number] [address] [place] [address] Mar, [facility] [address] [place] [id number] [address] [place] [address] Mar, [facility] [address] [place] [id number] [address] [place] [address] Mar, Bipolar I disorder, most rec ent episode (or current) mixed, moderate 296.62 and Major depressive disorder, recurrent episode, severe, specified as with psychotic behavior 296.34 [facility] [address] [place] [id number] [address] [place] [address] Mar, Magnesium deficiency 275.2 ; Hypokalemia 276.8 ; Nausea & vomiting 787.01 and Diabetes mellitus type 2, uncontrolled 250.02 [place] [address] [id number] Feb, [place] [address] [address] Feb, Bipolar I disorder, most rec ent episode (or current) mixed, moderate 296.[address] [address] Feb, Nausea and vomiting 787.01 ; Left elbow pain 719.42 ; Anuria 788.5 and Diabetes 250.[address] [address] Feb, [address] [address] Feb, Hypopotassemia 276.8 and Hyp okalemia 276.[address] [address] Feb, Hypopotassemia 276.8 and Hyp okalemia 276.[address] [address] Feb, Seborrheic keratoses 702.[address] [address] Feb, Hypopotassemia 276.8 and Low magnesium levels 275.2 [place] [address] [address] January, [place] [address] [address] January, [facility] [address] [address] January, [place] [address] [address] January, Scalp lesion 709.9 [facility] [address] [id number] [address] [place] [address] January, [facility] [place] [address] [id number] [address] [place] [id number] Dec, Tear of medial cartilage or meniscus of knee, current 836.0 and 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 [facility] [address] [id number] [address] [place] [address] Dec, [facility] [place] [address] [id number] [address] [place] [address] Dec, [facility] [place] [address] [id number] [address] [place] [address] Dec, Squamous cell carcinoma, 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 [facility] [address] [id number] [address] [place] [address] Dec, [facility] [address] [id number] [address] [place] [id number] Dec, [facility] [place] [address] [id number] [address] [place] [address] Nov, [facility] [place] [address] [id number] [address] [place] [address] Nov, [facility] [address] [id number] [address] [place] [phone] Nov, [facility] [address] [id number] [address] [place] [address] Nov, [facility] [place] [address] [id number] [address] [place] [address] Nov, [facility] [place] [address] [id number] [address] [place] [phone] Nov, [facility] [place] [address] [id number] [address] [place] [address] Nov, [facility] [address] [id number] [address] [place] [address], [place] [address] Nov, 2014 [facility] [address] [id number] [address] [place] [address], [place] [address] Nov, 2014 [facility] [address] [id number] [address] [place] [address], [place] [address] Nov, 2014 [facility] [address] [id number] [address] [place] [address], [place] [address] Nov, 2014 [facility] [address] [id number] [address] [place] [address], [place] [address] Nov, [facility] [address] [id number] [address] [place] [address], [place] [address] Oct, 2014 [facility] [address] [id number] [address] [place] [address], [place] [address] Oct, 2014 [facility] [address] [id number] [address] [place] [address], [place] [address] Oct, 2014 [facility] [address] [id number] [address] [place] [address], [place] [address] Oct, 2014 [facility] [address] [id number] [address] [place] [address], [place] [address] Oct, 2014 [facility] [address] [id number] [address] [place] [address], [place] [address] Oct, 2014 [facility] [address] [id number] [address] [place] [address], [place] [address] Oct, 2014 [facility] [address] [id number] [address] [place] [address], [place] [address] Oct, 2014 [facility] [address] [id number] [address] [place] [address], [place] [address] Oct, 2014 [facility] [address] [id number] [address] [place] [address], [place] [address] Sep, [facility] [address] [id number] [address] [place] [address] Sep, [facility] [address] [id number] [address] [place] [address], [place] [address] Sep, [facility] [address] [id number] [address] [place] [address], [place] [address] Sep, [facility] [address] [id number] [address] [place] [address], [place] [address] Sep, [facility] [address] [id number] [address] [place] [address], [place] [address] Sep, [facility] [address] [id number] [address] [place] [address], [place] [address] Sep, [facility] [address] [id number] [address] [place] [address], [place] [address] Sep, [facility] [address] [id number] [address] [place] [address], [place] [address] Sep, [facility] [address] [id number] [address] [place] [address], [place] [address] Sep, [facility] [address] [id number] [address] [place] [address], [place] [address] Sep, [facility] [address] [id number] [address] [place] [address], [place] [address] Sep, [facility] [address] [id number] [address] [place] [address], [place] [address] Sep, [facility] [address] [id number] [address] [place] [address], [place] [address] Sep, [facility] [address] [id number] [address] [place] [address], [place] [address] Sep, [facility] [address] [id number] [address] [place] [address], [place] [address] Sep, [facility] [address] [id number] [address] [place] [address], [place] [address] Aug, [facility] [address] [id number] [facility] [place] [address] Aug, [facility] [address] [id number] [facility] [place] [address] Aug, [facility] [address] [id number] [facility] [place] [address] Aug, [facility] [address] [id number] [facility] [place] [address] Aug, [facility] [address] [id number] [address] [place] [address], [place] [address] Aug, [facility] [address] [id number] [address] [place] [address], [place] [address] Aug, [facility] [address] [id number] [address] [place] [address], [place] [address] Aug, [facility] [address] [id number] [address] [place] [address], [place] [address] Aug, [facility] [address] [id number] [address] [place] [address], [place] [address] Aug, [facility] [address] [id number] [address] [place] [address], [place] [address] Aug, [facility] [address] [place] [id number] Aug, [facility] [address] [id number] [address] [place] [address], [place] [address] Aug, [facility] [address] [id number] [address] [place] [address], [place] [address] Aug, [facility] [address] [id number] [address] [place] [address], [place] [address] Aug, [facility] [address] [id number] [address] [place] [address], [place] [address] Aug, [facility] [address] [id number] [address] [place] [address], [place] [address] Aug, [facility] [address] [id number] [address] [place] [address], [place] [address] Aug, [facility] [address] [id number] [address] [place] [address], [place] [address] Aug, [facility] [address] [id number] [address] [place] [address], [place] [address] Aug, [facility] [address] [id number] [address] [place] [address], [place] [address] Aug, [facility] [address] [id number] [address] [place] [address], [place] [address] Aug, [facility] [address] [id number] [address] [place] [address], [place] [address] Aug, [facility] [address] [id number] [address] [place] [address], [place] [address] Aug, [facility] [address] [id number] [address] [place] [address], [place] [address] Aug, [facility] [address] [id number] [address] [place] [address], [place] [address] Aug, [facility] [address] [id number] [address] [place] [address], [place] [address] Aug, [facility] [address] [id number] [address] [place] [address], [place] [address] Aug, [facility] [address] [id number] [address] [place] [address], [place] [address] Aug, [facility] [address] [id number] [address] [place] [address], [place] [address] Aug, [facility] [address] [id number] [address] [place] [address], [place] [address] Jul, [facility] [address] [id number] [address] [place] [address], [place] [address] Jul, [facility] [address] [id number] [address] [address] Jul, [facility] [address] [id number] [address] [place] [address], [place] [address] Jul, [facility] [address] [id number] [address] [place] [address], [place] [address] Jul, [facility] [address] [id number] [address] [place] [address], [place] [address] Jul, [facility] [address] [id number] [address] [place] [address] Jul, [facility] [address] [id number] [address] [place] [address], [place] [address] Jul, [facility] [address] [id number] [address] [place] [address], [place] [address] Jul, [facility] [address] [id number] [address] [place] [address], [place] [address] Jul, [facility] [address] [id number] [address] [place] [address], [place] [address] Jun, [facility] [address] [id number] [address] [place] [address], [place] [address] Jun, [facility] [address] [id number] [address] [place] [address] Jun, [facility] [address] [id number] [address] [place] [address] Jun, [facility] [address] [id number] [address] [place] [address] Jun, [facility] [address] [id number] [address] [place] [address], [place] [address] Jun, [facility] [address] [id number] [address] [place] [address] Jun, [facility] [address] [id number] [address] [place] [id number] Jun, [facility] [address] [id number] [address] [place] [address], [place] [address] Jun, [facility] [address] [id number] [address] [place] [address], [place] [address] Jun, [facility] [address] [id number] [address] [place] [address], [place] [address] 29 May, 2013 [facility] [address] [id number] [address] [place] [address], [place] [address] 29 May, 2013 [facility] [address] [id number] [address] [place] [address], [place] [address] 26 May, 2013 [facility] [address] [id number] [address] [place] [address], [place] [address] 26 May, 2013 [facility] [address] [id number] [address] [place] [address], [place] [address] 17 May, 2013 [facility] [address] [id number] [address] [place] [address], [place] [address] 17 May, 2013 [facility] [address] [id number] [address] [place] [address], [place] [address] 15 May, 2013 [facility] [address] [id number] [address] [place] [address], [place] [address] 15 May, 2013 [facility] [address] [id number] [address] [place] [address], [place] [address] 15 May, 2013 [facility] [address] [id number] [address] [place] [address], [place] [address] 15 May, 2013 [facility] [address] [id number] [address] [place] [address], [place] [address] 10 May, 2013 [facility] [address] [id number] [address] [place] [address], [place] [address] 10 May, 2013 [facility] [address] [id number] [address] [place] [address], [place] [address] 09 May, 2013 [facility] [address] [id number] [address] [place] [address], [place] [address] May, [facility] [address] [id number] [facility] [place] [address] May, [facility] [address] [id number] [address] [place] [address], [place] [address] May, [facility] [address] [id number] [address] [place] [address], [place] [address] Apr, [facility] [address] [id number] [address] [place] [address], [place] [address] Apr, [facility] [address] [id number] [address] [place] [address], [place] [address] Apr, [facility] [address] [id number] [address] [place] [address], [place] [address] Apr, [facility] [address] [id number] [address] [place] [address], [place] [address] Apr, [facility] [address] [id number] [address] [place] [address], [place] [address] Apr, [facility] [address] [id number] [address] [place] [address], [place] [address] Apr, [facility] [address] [id number] [address] [place] [address], [place] [address] Apr, [facility] [address] [id number] [address] [place] [address], [place] [address] Apr, [facility] [address] [id number] [address] [place] [address], [place] [address] Apr, [facility] [address] [id number] [address] [place] [address], [place] [address] Apr, [facility] [address] [id number] [address] [place] [address], [place] [address] Apr, [facility] [address] [id number] [address] [place] [address], [place] [address] Apr, [facility] [address] [id number] [address] [place] [address], [place] [address] Apr, [facility] [address] [id number] [address] [place] [address], [place] [address] Apr, [facility] [address] [id number] [address] [place] [address], [place] [address] Mar, [facility] [address] [id number] [address] [place] [address], [place] [address] Mar, [facility] [address] [id number] [address] [place] [address], [place] [address] Mar, [facility] [address] [id number] [address] [place] [address], [place] [address] Mar, [facility] [address] [id number] [address] [place] [address], [place] [address] Mar, [facility] [address] [id number] [address] [place] [address], [place] [address] Mar, [facility] [address] [id number] [address] [place] [address], [place] [address] Mar, [facility] [address] [id number] [address] [place] [address], [place] [address] Mar, [facility] [address] [id number] [address] [place] [address], [place] [address] Mar, [facility] [place] [facility] [address] [id number] [address] [place] [address], [place] [address] Mar, [facility] [place] [address] [id number] [address] [place] [address], [place] [address] Mar, [facility] [place] [facility] [address] [id number] [address] [place] [address], [place] [address] Mar, [facility] [place] [facility] [address] [id number] [address] [place] [address], [place] [address] Mar, [facility] [address] [id number] [address] [place] [address], [place] [address] Mar, [facility] [place] [facility] [address] [id number] [facility] [place] [address] Mar, [facility] [place] [address] [id number] [facility] [place] [address] Mar, [facility] [place] [address] [id number] [facility] [place] [address] Mar, [facility] [place] [facility] [address] [id number] [facility] [place] [address] Mar, [facility] [place] [facility] [address] [id number] [facility] [place] [address] Feb, [facility] [place] [facility] [address] [id number] [facility] [place] [address] Feb, [facility] [place] [address] [id number] [address] [place] [address], [place] [address] Feb, [facility] [place] [facility] [address] [id number] [address] [place] [address], [place] [address] Feb, [facility] [place] [address] [id number] [address] [place] [address], [place] [address] Feb, [facility] [place] [address] [id number] [address] [place] [address], [place] [address] Feb, [facility] [place] [address] [id number] [address] [place] [address], [place] [address] Feb, [facility] [place] [facility] [address] [id number] [address] [place] [address], [place] [address] Feb, [facility] [place] [facility] [address] [id number] [address] [place] [address], [place] [address] Feb, [facility] [place] [address] [id number] [address] [place] [address], [place] [address] Feb, [facility] [place] [address] [id number] [address] [place] [address], [place] [address] Feb, [facility] [place] [address] [id number] [address] [place] [address], [place] [address] Feb, [facility] [address] [id number] [facility] [place] [address] Feb, [facility] [address] [id number] [facility] [place] [address] Feb, [facility] [address] [id number] [facility] [place] [address] January, [facility] [address] [id number] [facility] [place] [address] January, [facility] [address] [id number] [facility] [place] [address] January, [facility] [address] [id number] [address] [place] [address], [place] [address] January, [facility] [address] [id number] [facility] [place] [address] January, [facility] [address] [id number] [address] [place] [address], [place] [address] January, [facility] [address] [id number] [address] [place] [address], [place] [address] January, [facility] [address] [id number] [address] [place] [address], [place] [address] January, [facility] [address] [id number] [address] [place] [address], [place] [address] January, [facility] [address] [id number] [address] [place] [address], [place] [address] January, [facility] [place] [address] [id number] [facility] [place] [address] January, [facility] [place] [address] [id number] [address] [place] [address], [place] [address] January, [facility] [place] [facility] [address] [id number] [facility] [place] [address] January, [facility] [address] [id number] [facility] [place] [address] January, [facility] [address] [id number] [address] [place] [address], [place] [address] Dec, [facility] [address] [id number] [address] [place] [address], [place] [address] Dec, [facility] [address] [id number] [address] [place] [address], [place] [address] Dec, [facility] [address] [id number] [address] [place] [address], [place] [address] Dec, [facility] [address] [id number] [address] [place] [address], [place] [address] Dec, [facility] [address] [id number] [address] [place] [address], [place] [address] Dec, [facility] [address] [id number] [address] [place] [address], [place] [address] Dec, [facility] [address] [id number] [address] [place] [address], [place] [address] Dec, [facility] [address] [id number] [address] [place] [address], [place] [address] Dec, [facility] [address] [id number] [address] [place] [address], [place] [address] Dec, [facility] [address] [id number] [address] [place] [address], [place] [address] Nov, [facility] [address] [id number] [address] [place] [address], [place] [address] Nov, [facility] [address] [id number] [address] [place] [address], [place] [address] Nov, [facility] [address] [id number] [address] [place] [address], [place] [address] Nov, [facility] [address] [id number] [address] [place] [address], [place] [address] Nov, [facility] [place] [facility] [address] [id number] [facility] [place] [address] Nov, [facility] [place] [facility] [address] [id number] [facility] [place] [address] Nov, [facility] [place] [facility] [address] [id number] [facility] [place] [address] Nov, [facility] [place] [address] [id number] [address] [place] [address], [place] [address] Nov, [facility] [place] [facility] [address] [id number] [address] [place] [address], [place] [address] Nov, [facility] [address] [id number] [address] [place] [address], [place] [address] Oct, [facility] [address] [id number] [address] [place] [address], [place] [address] Oct, [facility] [address] [id number] [address] [place] [address], [place] [address] Oct, [facility] [address] [id number] [address] [place] [address], [place] [address] Oct, [facility] [address] [id number] [address] [place] [address], [place] [address] Oct, [facility] [address] [id number] [address] [place] [address], [place] [address] Oct, [facility] [address] [id number] [address] [place] [address], [place] [address] 14 Oct, 2013 [facility] [address] [id number] [address] [place] [address], [place] [address] Oct, [facility] [address] [id number] [address] [place] [address], [place] [address] 05 Oct, 2013 [facility] [place] [address] [id number] [address] [place] [address], [place] [address] Oct, [facility] [place] [address] [id number] [address] [address] 04 Oct, 2013 [facility] [address] [id number] [address] [place] [address], [place] [address] Oct, [facility] [address] [id number] [address] [place] [address], [place] [address] Oct, [facility] [address] [id number] [address] [place] [address], [place] [address] Oct, [facility] [address] [id number] [address] [place] [address], [place] [address] Sep, [facility] [address] [id number] [address] [place] [address], [place] [address] Sep, [facility] [address] [id number] [address] [place] [address], [place] [address] Sep, [facility] [address] [id number] [address] [place] [address], [place] [address] Sep, [facility] [address] [id number] [address] [place] [address], [place] [address] Sep, [facility] [address] [id number] [address] [place] [address], [place] [address] Sep, [facility] [address] [id number] [address] [place] [address], [place] [address] Sep, [facility] [address] [id number] [address] [place] [address], [place] [address] Sep, [facility] [address] [id number] [address] [place] [address], [place] [address] Sep, [facility] [address] [id number] [address] [place] [address], [place] [address] Sep, [facility] [address] [id number] [address] [place] [address], [place] [address] Aug, [facility] [address] [id number] [address] [place] [address], [place] [address] Aug, [facility] [address] [id number] [address] [place] [address], [place] [address] Jul, [facility] [address] [id number] [address] [place] [address], [place] [address] Jul, [facility] [address] [id number] [address] [place] [address], [place] [address] Jul, [facility] [address] [id number] [address] [place] [address], [place] [address] Jul, [facility] [address] [id number] [address] [place] [address], [place] [address] Jul, [facility] [address] [id number] [address] [place] [address], [place] [address] Jul, [facility] [address] [id number] [address] [place] [address], [place] [address] Jul, [facility] [address] [id number] [address] [place] [address], [place] [address] Jul, [facility] [address] [id number] [address] [place] [address], [place] [address] Jul, [facility] [address] [id number] [address] [place] [address], [place] [address] Jul, [facility] [address] [id number] [address] [place] [address], [place] [address] Jul, [facility] [address] [id number] [address] [place] [address], [place] [address] Jul, [facility] [address] [id number] [address] [place] [address], [place] [address] Jul, [facility] [place] [facility] [address] [id number] [address] [place] [address], [place] [address] Jul, [facility] [address] [id number] [address] [place] [address], [place] [address] Jul, [facility] [address] [id number] [address] [place] [address] Jul, 2012 [facility] [address] [id number] [address] [place] [address], [place] [address] Jul, 2012 [facility] [address] [id number] [address] [place] [address] Jul, [facility] [address] [id number] [address] [place] [address], [place] [address] Jul, [facility] [address] [id number] [address] [place] [address], [place] [address] Jun, 2012 [facility] [address] [id number] [address] [place] [address], [place] [address] Jun, 2012 [facility] [address] [id number] [address] [place] [address], [place] [address] Jun, 2012 [facility] [address] [id number] [address] [place] [address] Jun, 2012 [facility] [address] [id number] [address] [place] [address] Jun, 2012 [facility] [address] [id number] [address] [place] [address] Jun, 2012 [facility] [address] [id number] [address] [place] [address] Jun, [facility] [address] [id number] [address] [place] [address] Jun, 2012 [facility] [address] [id number] [address] [place] [address] Jun, [facility] [address] [id number] [address] [place] [address] Jun, [facility] [address] [id number] [address] [place] [address] Jun, [facility] [address] [id number] [address] [place] [address] May, [facility] [address] [id number] [facility] [place] [address] 25 May, 2012 [facility] [address] [id number] [address] [place] [address], [place] [address] 19 May, 2012 [facility] [address] [id number] [address] [place] [address], [place] [address] 17 May, 2012 [facility] [address] [id number] [address] [place] [address], [place] [address] 11 May, 2012 [facility] [address] [id number] [address] [place] [address], [place] [address] 10 May, 2012 [facility] [address] [id number] [address] [place] [address], [place] [address] 09 May, 2012 [facility] [address] [id number] [address] [place] [address], [place] [address] 05 May, 2013 [facility] [address] [id number] [address] [place] [address], [place] [address] Apr, [facility] [address] [id number] [address] [place] [address], [place] [address] Apr, [facility] [address] [id number] [address] [place] [address], [place] [address] Apr, [facility] [address] [id number] [address] [place] [address], [place] [address] Apr, [facility] [address] [id number] [address] [place] [address], [place] [address] Apr, [facility] [address] [id number] [address] [place] [address], [place] [address] Mar, [facility] [place] [facility] [address] [id number] [address] [place] [address], [place] [address] Mar, [facility] [address] [id number] [address] [place] [address], [place] [address] Mar, [facility] [address] [id number] [address] [place] [address], [place] [address] Mar, [facility] [address] [id number] [address] [place] [address], [place] [address] Mar, [facility] [address] [id number] [address] [place] [address], [place] [address] Mar, [facility] [address] [id number] [address] [place] [address], [place] [address] Mar, [facility] [address] [id number] [address] [place] [address], [place] [address] Mar, [facility] [address] [id number] [address] [place] [address], [place] [address] Feb, [facility] [address] [id number] [address] [place] [address], [place] [address] Feb, [facility] [address] [id number] [address] [place] [address], [place] [address] January, [facility] [address] [id number] [address] [place] [address], [place] [address] January, [facility] [address] [id number] [address] [place] [address], [place] [address] Dec, [facility] [address] [id number] [address] [place] [address], [place] [address] Dec, [facility] [address] [id number] [address] [place] [address], [place] [address] Nov, [facility] [address] [id number] [address] [place] [address], [place] [address] Nov, [facility] [address] [id number] [address] [place] [address], [place] [address] Nov, [facility] [address] [id number] [address] [place] [address], [place] [address] Nov, [facility] [address] [id number] [address] [place] [address], [place] [address] Oct, [facility] [address] [id number] [address] [place] [address], [place] [address] Oct, [facility] [address] [id number] [address] [place] [address], [place] [address] Oct, [facility] [address] [id number] [address] [place] [address], [place] [address] 26 Oct, 2012 [facility] [address] [id number] [address] [place] [address], [place] [address] 16 Oct, 2012 [facility] [address] [id number] [address] [place] [address], [place] [address] 14 Oct, 2012 [facility] [address] [id number] [address] [place] [address], [place] [address] 08 Oct, 2012 [facility] [address] [id number] [address] [place] [address], [place] [address] 07 Oct, 2012 [facility] [address] [id number] [address] [place] [address], [place] [address] 03 Oct, 2012 [facility] [address] [id number] [address] [place] [address], [place] [address] Sep, [facility] [address] [id number] [address] [place] [address], [place] [address] Sep, [facility] [address] [id number] [address] [place] [address], [place] [address] Sep, [facility] [address] [id number] [address] [place] [address], [place] [address] Sep, [facility] [address] [id number] [address] [place] [address], [place] [address] Sep, [facility] [address] [id number] [address] [place] [address], [place] [address] Sep, [facility] [address] [id number] [address] [place] [address], [place] [address] Sep, [facility] [address] [id number] [address] [place] [address], [place] [address] Sep, [facility] [address] [id number] [address] [place] [address], [place] [address] Aug, [facility] [address] [id number] [address] [place] [address], [place] [address] Aug, [facility] [address] [id number] [address] [place] [address], [place] [address] Aug, [facility] [address] [id number] [address] [place] [address], [place] [address] Aug, [facility] [address] [id number] [address] [place] [address], [place] [address] Aug, [facility] [address] [id number] [address] [place] [address], [place] [address] Aug, [facility] [address] [id number] [address] [place] [address], [place] [address] Aug, [facility] [address] [id number] [address] [place] [address], [place] [address] Aug, [facility] [address] [id number] [address] [place] [address], [place] [address] Jul, [facility] [address] [id number] [address] [place] [address], [place] [address] Jul, [facility] [address] [id number] [address] [place] [address], [place] [address] Jul, [facility] [address] [id number] [address] [place] [address], [place] [address] Jul, [facility] [address] [id number] [address] [place] [address], [place] [address] Jul, [facility] [address] [id number] [address] [place] [address], [place] [address] Jul, [facility] [address] [id number] [address] [place] [address], [place] [address] Jun, [facility] [address] [id number] [address] [place] [address], [place] [address] 25 Jun, 2012 [facility] [address] [id number] [address] [place] [address], [place] [address] Jun, [facility] [address] [id number] [address] [place] [address], [place] [address] Jun, [facility] [address] [id number] [address] [place] [address], [place] [address] Jun, [facility] [address] [id number] [address] [place] [address], [place] [address] Jun, [facility] [address] [id number] [address] [place] [address], [place] [address] 19 Jun, 2012 [facility] [address] [id number] [address] [place] [address], [place] [address] 10 Jun, 2012 [facility] [address] [id number] [address] [place] [address], [place] [address] 10 Jun, 2012 [facility] [address] [id number] [address] [place] [address], [place] [address] 26 May, 2012 [facility] [address] [id number] [address] [place] [address], [place] [address] 24 May, 2012 [facility] [address] [id number] [address] [place] [address], [place] [address] 18 May, 2012 [facility] [address] [id number] [address] [place] [address], [place] [address] 30 Apr, 2012 [facility] [address] [id number] [address] [place] [address], [place] [address] 29 Apr, 2012 [facility] [address] [id number] [address] [place] [address], [place] [address] 18 Apr, 2012 [facility] [address] [id number] [address] [place] [address], [place] [address] 14 Apr, 2012 [facility] [address] [id number] [address] [place] [address], [place] [address] Apr, [facility] [address] [id number] [address] [place] [address], [place] [address] Apr, [facility] [address] [id number] [address] [place] [address], [place] [address] Mar, [facility] [address] [id number] [address] [place] [address], [place] [address] Mar, [facility] [address] [id number] [address] [place] [address], [place] [address] Mar, [facility] [address] [id number] [address] [place] [address], [place] [address] Mar, [facility] [address] [id number] [address] [place] [address], [place] [address] Feb, [facility] [address] [id number] [address] [place] [address], [place] [address] Feb, [facility] [address] [id number] [address] [place] [address], [place] [address] Feb, [facility] [address] [id number] [address] [place] [address], [place] [address] Feb, [facility] [address] [id number] [address] [place] [address], [place] [address] Feb, [facility] [address] [id number] [address] [place] [address], [place] [address] January, [facility] [address] [id number] [address] [place] [address], [place] [address] January, [facility] [address] [id number] [address] [place] [address], [place] [address] January, [facility] [address] [id number] [address] [place] [address], [place] [address] January, [facility] [address] [id number] [address] [place] [address], [place] [address] January, [facility] [address] [id number] [address] [place] [address], [place] [address] January, [facility] [address] [id number] [address] [place] [address], [place] [address] Dec, [facility] [address] [id number] [address] [place] [address], [place] [address] 24 Dec, 2011 [facility] [address] [id number] [address] [place] [address], [place] [address] 17 Dec, 2011 [facility] [address] [id number] [address] [place] [address], [place] [address] Dec, [facility] [address] [id number] [address] [place] [address], [place] [address] Dec, [facility] [address] [id number] [address] [place] [address], [place] [address] 27 Nov, 2011 [facility] [address] [id number] [address] [place] [address], [place] [address] 14 Nov, 2011 [facility] [address] [id number] [address] [place] [address], [place] [address] Nov, [facility] [address] [id number] [address] [place] [address], [place] [address] 07 Nov, 2011 [facility] [address] [id number] [address] [place] [address], [place] [address] 29 Oct, 2011 [facility] [address] [id number] [address] [place] [address], [place] [address] Oct, [facility] [address] [id number] [address] [place] [address], [place] [address] 24 Oct, 2011 [facility] [address] [id number] [address] [place] [address], [place] [address] 13 Oct, 2011 [facility] [address] [id number] [address] [place] [address], [place] [address] 08 Oct, 2011 [facility] [address] [id number] [address] [place] [address], [place] [address] Sep, [facility] [address] [id number] [address] [place] [address], [place] [address] Sep, [facility] [address] [id number] [address] [place] [address], [place] [address] Sep, [facility] [address] [id number] [address] [place] [address], [place] [address] Sep, [facility] [address] [id number] [address] [place] [address], [place] [address] Sep, [facility] [address] [id number] [address] [place] [address], [place] [address] Sep, [facility] [address] [id number] [address] [place] [address], [place] [address] Aug, [facility] [address] [id number] [address] [place] [address], [place] [address] Aug, [facility] [address] [id number] [address] [place] [address], [place] [address] Aug, [facility] [address] [id number] [address] [place] [address], [place] [address] Jul, [facility] [address] [id number] [address] [place] [address], [place] [address] Jul, [facility] [address] [id number] [address] [place] [address], [place] [address] Jul, [facility] [address] [id number] [address] [place] [address], [place] [address] Jul, [facility] [address] [id number] [address] [place] [address], [place] [address] Jun, [facility] [address] [id number] [address] [place] [address], [place] [address] Jun, [facility] [address] [id number] [address] [place] [address], [place] [address] Jun, [facility] [address] [id number] [address] [place] [address], [place] [address] 10 Jun, 2011 [facility] [address] [id number] [address] [place] [address], [place] [address] 10 Jun, 2011 [facility] [address] [id number] [address] [place] [address], [place] [address] 10 Jun, 2011 [facility] [address] [id number] [address] [place] [address], [place] [address] 11 Mar, 2011 [facility] [address] [id number] [address] [place] [address], [place] [address] 18 Dec, 2010 [facility] [address] [id number] [address] [place] [address], [place] [address] 11 Dec, 2010 [facility] [address] [id number] [address] [place] [address], [place] [address] 18 Nov, 2010 [facility] [address] [id number] [address] [place] [address], [place] [address] 16 Nov, 2010 [facility] [address] [id number] [address] [place] [address], [place] [address] 10 Sep, 2010 [facility] [address] [id number] [address] [place] [address], [place] [address] 31 Aug, 2010 [facility] [address] [id number] [address] [place] [address], [place] [address] 29 Aug, 2010 [facility] [address] [id number] [address] [place] [address], [place] [address] 29 Aug, 2010 [facility] [address] [id number] [address] [place] [address], [place] [address] 29 Aug, 2010 [facility] [address] [id number] [address] [place] [address], [place] [address] 27 Aug, 2010 [facility] [address] [id number] [address] [place] [address], [place] [address] 14 Aug, 2010 [facility] [address] [id number] [address] [place] [address], [place] [address] 08 Aug, 2010 [facility] [address] [id number] [address] [place] [address], [place] [address] 08 Aug, 2010 [facility] [address] [id number] [address] [place] [address], [place] [address] Aug, [facility] [address] [id number] [address] [place] [address], [place] [address] Aug, [facility] [address] [id number] [address] [place] [address], [place] [address] Aug, [facility] [address] [id number] [address] [place] [address], [place] [address] Aug, [facility] [address] [id number] [address] [place] [address], [place] [address] Jul, [facility] [address] [id number] [address] [place] [address], [place] [address] Jul, [facility] [address] [id number] [address] [place] [address], [place] [address] Jul, [facility] [address] [id number] [address] [place] [address], [place] [address] Jul, [facility] [address] [id number] [address] [place] [address], [place] [address] Jul, [facility] [address] [id number] [address] [place] [address], [place] [address] Jul, [facility] [address] [id number] [address] [place] [address], [place] [address] 24 Jun, 2010 [facility] [address] [id number] [address] [place] [address], [place] [address] Jun, [facility] [address] [id number] [address] [place] [address], [place] [address] Jun, [facility] [address] [id number] [address] [place] [address], [place] [address] Jun, [facility] [address] [id number] [address] [place] [address] 16 Apr, 2010 [facility] [address] [id number] [address] [place] [address] 20 Mar, 2010 [facility] [address] [id number] [address] [place] [id number] 17 Feb, 2010 [facility] [address] [id number] [address] [place] [address] January, [facility] [address] [id number] [address] [place] [address], [place] [address] 15 Dec, 2009 [facility] [address] [id number] [address] [place] [address], [place] [address] Nov, [facility] [address] [id number] [address] [place] [address] Aug, [facility] [address] [id number] [address] [place] [address] Aug, [facility] [address] [id number] [address] [place] [id number] Aug, [facility] [address] [id number] [address] [place] [phone] Jul, [facility] [address] [id number] [address] [place] [address] Jul, [facility] [address] [id number] [address] [place] [address] Jul, [facility] [address] [id number] [address] [place] [address] 30 Jun, 2009 [facility] [address] [id number] [address] [place] [address] 29 Jun, 2009 [facility] [address] [id number] [address] [place] [address] Jun, [facility] [address] [id number] [address] [place] [phone] Jun, [facility] [address] [id number] [address] [place] [address] Jun, [facility] [address] [facility] [id number] [address] [place] [phone] Jun, [facility] [address] [facility] [id number] [address] [place] [id number] Apr, [facility] [address] [facility] [id number] [address] [place] [address] Apr, [facility] [address] [facility] [id number] [address] [place] [address] Feb, [facility] [address] [facility] [id number] [address] [place] [phone] January, [facility] [address] [facility] [id number] [address] [place] [phone] Dec, IMMUNIZATIONS No Known Immunizations SOCIAL HISTORY [...] obesity Medical History 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
--- OUTSIDE RECORDS SUMMARY | 2020-03-01 17:58 | XMS REPORT ---
Author Author Michele WASHBURN Organization [facility] Address [address] [place] [address] Care Team Providers Care Regulation Supervisor Name Role Phone NOEMI WASHBURN Unavailable PROBLEMS Type Condition ICD9-CM Code TAK92-NR Code Onset Dates Condition S tatus SNOMED Code Problem Leukocytosis D72.829 Active 5531716 06 Problem Bipolar I disorder, most recent episode (or curr ent) mixed, moderate F31.62 Active 25087058 Problem Reactive airway disease J45.909 Active 344147904607 Problem Anxiety F41.9 Active 07642773 Problem Insomnia, unspecified type G47.00 Act shraon 284882146 Problem Essential hypertension I10 Active 29175860 Problem Morbid obesity E66.01 Active 72056 6002 Problem Skin cancer C44.90 Active 72250987 7 Problem DM neuro manif type II E11.49 Active 06216482 Problem Mild cognitive impairment G31.84 Acti ve 270281252 Problem Benign prostatic hyperplasia with lower urinary tract symptoms, unspecified morphology N40.1 Active 49023 6007 Problem Chronic pain G89.29 Active 0155255 1 Problem Diabetes E11.9 Active 45574871 Problem Retinal edema H35.81 Active 094059 6 Problem Anemia of chronic illness D63.8 Acti ve 481231339 Problem Falling R29.6 Active 080133884 Problem Pressure ulcer of other site, stage 3 L89.893 Active 829470033 Problem 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 Active 040544211 Problem Eye exam abnormal R93.8 Active 16 3129531 Problem Pure hypercholesterolemia E78.00 Acti ve 674188990 Problem Dysuria R30.0 Active 73665143 Problem Bipolar disorder, in partial remission, most rec ent episode depressed F31.75 Active 47517005 Problem Hypokalemia E87.6 Active 92685079 Problem Other iron deficiency anemia D50.8 A ctive 95964677 Problem Eustachian tube dysfunction, unspecified laterality H69.80 Active 33479013 Problem Primary osteoarthritis of right knee M17.11 Active 021464346872843 Problem Cough R05 Active 90985818 Problem Bipolar disorder F31.9 Active 137 06823 Problem Chronic diastolic (congestive) heart failure I50.3 2 Active 231248499 Problem Psychophysiological insomnia F51.04 A ctive 082632604 Problem Gastroesophageal reflux disease without esophagitis K21.9 Active 832212496 Problem Polyneuropathy associated with underlying disease G63 Active 535599434 Problem Other secondary acute gout, 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 0 Active 235042017 Problem Diabetic polyneuropathy associated with type 2 d iabetes mellitus E11.42 Active 93390598 Problem Chronic lymphocytic leukemia C91.10 A ctive 34049156 Problem Bilateral primary osteoarthritis of knee M17.0 Active 656755181 Problem Type 2 diabetes mellitus with diabetic neuropathy, uns pecified E11.40 Active 32604755 Problem FPC (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 Z79.4 Active 685032600 Problem Lymphocytosis D72.820 Active 131834 09 Problem Mood disorder F39 Active 134251 05 Problem Bipolar I disorder, most recent episode depressed, moderat e F31.32 Active 035681785 ALLERGIES No Information ENCOUNTERS Encounter Location Date Diagnosis [facility] [address] [facility] [id number] [address] [place] [address] Dec, [facility] [address] [facility] [id number] [address] [place] [address] Dec, Chronic pain G89.29 [facility] [address] [facility] [id number] [address] [place] [address] Dec, [facility] [address] [id number] [address] [place] [address] Dec, [facility] [address] [facility] [id number] [address] [place] [address] Dec, Gastroesophageal reflux dise ase without esophagitis K21.9 and Pure hypercholesterolemia E78.00 [facility] [address] [facility] [id number] [address] [place] [address] Dec, Mood disorder F39 [facility] [address] [facility] [id number] [address] [place] [address] 31 Nov, 2019 Other secondary acute gout, 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 [facility] [address] [facility] [id number] [address] [place] [address] Nov, Gastroesophageal reflux dise ase without esophagitis K21.9 [facility] [address] [facility] [id number] [address] [place] [address] Nov, Chronic pain G89.29 [facility] [address] [facility] [id number] [address] [place] [address] Nov, Bipolar I disorder, most rec ent episode depressed, moderate F31.32 ; Anxiety F41.9 and Mild cognitive impairment G31.84 [place] [address] [facility] [id number] [address] [place] [address] Nov, [place] [address] [facility] [id number] [address] [place] [address] Nov, Syncope, unspecified syncope type R55 [place] [address] [facility] [id number] [address] [place] [address] Nov, Mood disorder F39 [place] [address] [facility] [id number] [address] [place] [address] Oct, Chronic pain G89.29 [facility] [address] [facility] [id number] [address] [place] [address] Oct, [facility] [address] [facility] [id number] [address] [place] [address] Oct, Mood disorder F39 [facility] [address] [facility] [id number] [address] [place] [address] Oct, [place] [address] [facility] [id number] [address] [place] [address] Oct, Bipolar disorder, in partial remission, most recent episode depressed F31.75 and Mild cognitive impairment G31.84 [place] [address] [facility] [id number] [address] [place] [address] Oct, Mood disorder F39 [facility] [address] [id number] [address] [place] [address] Sep, [facility] [address] [id number] [address] [place] [address] Sep, Mood disorder F39 [facility] [address] [id number] [address] [place] [address] Sep, Bipolar disorder, in partial remission, most recent episode depressed F31.75 and Mild cognitive impairment G31.84 [facility] [address] [id number] [address] [place] [address] Sep, Mood disorder F39 [facility] [address] [id number] [address] [place] [address] Sep, [facility] [address] [id number] [address] [place] [address] Sep, Mood disorder F39 [facility] [address] [id number] [address] [place] [address] Sep, [facility] [address] [id number] [address] [place] [address] Aug, Mood disorder F39 [facility] [address] [id number] [address] [place] [address] Aug, [facility] [address] [id number] [address] [place] [address] Aug, [facility] [address] [id number] [address] [place] [address] Aug, [facility] [address] [id number] [address] [place] [address] Aug, [facility] [address] [id number] [address] [place] [address] Aug, [facility] [address] [id number] [address] [place] [address] Aug, [facility] [address] [id number] [address] [place] [address] Aug, [facility] [address] [id number] [address] [place] [address] Aug, Essential hypertension I10 [facility] [address] [id number] [address] [place] [address] Aug, Bipolar disorder, in partial remission, most recent episode depressed F31.75 and Mild cognitive impairment G31.84 [facility] [address] [id number] [address] [place] [address] Aug, Mood disorder F39 [facility] [address] [id number] [address] [place] [address] Aug, [facility] [address] [id number] [address] [place] [address] Aug, Bipolar disorder, in partial remission, most recent episode depressed F31.75 and Mild cognitive impairment G31.84 [facility] [address] [id number] [address] [place] [address] Jul, Bipolar disorder, in partial remission, most recent episode depressed F31.75 and Mild cognitive impairment G31.84 [facility] [address] [id number] [address] [place] [address] Jul, Psychophysiological insomnia F51.04 [facility] [address] [id number] [address] [place] [address] Jul, [facility] [address] [id number] [address] [place] [address] Jul, [facility] [address] [id number] [address] [place] [address] Jul, [facility] [address] [id number] [address] [place] [address] Jul, [facility] [address] [id number] [address] [place] [address] Jul, [place] [address] [facility] [id number] [address] [place] [address] Jul, [place] [address] [facility] [id number] [address] [place] [address] Jul, Bipolar disorder, in partial remission, most recent episode depressed F31.75 and Mild cognitive impairment G31.84 [place] [address] [place] [id number] [address] [place] [address] Jul, Chronic pain G89.29 ; Diabet es E11.9 ; Essential hypertension I10 ; Ill feeling R68.89 ; Local infection of the skin and subcutaneous tissue, unspecified L08.9 and Other injury of unspecified body region, initial encounter T14.8XXA [place] [address] [place] [id number] [address] [place] [address] Jun, Bipolar disorder, in partial remission, most recent episode depressed F31.75 and Mild cognitive impairment G31.84 [place] [address] [facility] [id number] [address] [place] [address] Jun, [place] [address] [facility] [id number] [address] [place] [address] Jun, Bipolar disorder, in partial remission, most recent episode depressed F31.75 and Mild cognitive impairment G31.84 [place] [address] [place] [id number] [address] [place] [address] Jun, Psychophysiological insomnia F51.04 [place] [address] [facility] [id number] [address] [place] [address] Jun, Psychophysiological insomnia F51.04 ; Chronic pain G89.29 ; Bipolar I disorder, most recent episode (or current) mixed, moderate F31.62 ; 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 ; Polyneuropathy associated with underlying disease G63 ; Type 2 diabetes mellitus with diabetic neuropathy, unspecified E11.40 ; 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.4 and Hyperglycemia R73.[address] [id number] [address] [place] [address] Jun, Bipolar disorder, in partial remission, most recent episode depressed F31.75 and Mild cognitive impairment G31.84 [facility] [address] [id number] [address] [place] [address] Jun, [facility] [address] [facility] [id number] [address] [place] [address] Jun, Bipolar disorder F31.9 [facility] [address] [facility] [id number] [address] [place] [address] May, Bipolar disorder, in partial remission, most recent episode depressed F31.75 and Mild cognitive impairment G31.84 [facility] [address] [facility] [id number] [address] [place] [address] May, [facility] [address] [facility] [id number] [address] [place] [address] Apr, Chronic pain G89.29 and Bipo lar disorder F31.9 [facility] [address] [id number] [address] [place] [address] Mar, Bipolar disorder F31.9 and C hronic pain G89.29 [facility] [address] [facility] [id number] [address] [place] [address] Feb, Bipolar disorder F31.9 [facility] [address] [id number] [address] [place] [phone] Feb, Cellulitis of right upper ex tremity L03.113 and Skin abrasion T14.8XXA [facility] [address] [id number] [address] [place] [address] Feb, Bipolar disorder, in partial remission, most recent episode depressed F31.75 and Mild cognitive impairment G31.84 [facility] [address] [id number] [address] [place] [address] Feb, Chronic pain G89.29 [facility] [address] [facility] [id number] [address] [place] [address] Feb, Bipolar disorder, in partial remission, most recent episode depressed F31.75 and Mild cognitive impairment G31.84 [facility] [address] [id number] [address] [place] [address] January, Bipolar disorder, in partial remission, most recent episode depressed F31.75 and Mild cognitive impairment G31.84 [facility] [address] [id number] [address] [place] [address] January, Chronic pain G89.29 and Bipo lar disorder F31.9 [facility] [address] [id number] [address] [place] [address] January, Bipolar disorder, in partial remission, most recent episode depressed F31.75 and Mild cognitive impairment G31.84 [facility] [address] [id number] [address] [place] [address] Dec, [facility] [address] [id number] [address] [place] [address] Dec, Chronic pain G89.29 and Bipo lar disorder F31.9 [facility] [address] [id number] [address] [place] [address] Dec, Edema of both lower extremit ies R60.0 [facility] [address] [id number] [address] [place] [address] Dec, Bipolar disorder F31.9 [facility] [address] [id number] [address] [place] [address] Dec, Bipolar disorder, in partial remission, most recent episode depressed F31.75 and Mild cognitive impairment G31.84 [facility] [address] [id number] [address] [place] [address] Nov, [facility] [address] [id number] [address] [place] [address] Nov, Chronic pain G89.29 [facility] [address] [id number] [address] [place] [address] Nov, Bipolar disorder, in partial remission, most recent episode depressed F31.75 and Mild cognitive impairment G31.84 [place] [address] [place] [id number] [address] [place] [address] Nov, Bipolar disorder F31.9 [place] [address] [place] [id number] [address] [place] [address] 04 Nov, 2018 [facility] Z[facility] ; Polyneuropathy [...] unspecified morphology N40.1 and Essential hypertension I10 [place] [id number] [place] [address] Oct, Chronic pain G89.29 [place] [address] [place] [id number] [address] [place] [address] 18 Oct, 2018 Diabetes E11.9 [place] [address] [place] [id number] [address] [place] [address] Oct, Bipolar I disorder, most rec ent episode (or current) mixed, moderate F31.62 and Mild cognitive impairment G31.84 [place] [address] [place] [id number] [address] [place] [address] Oct, Bipolar I disorder, most rec ent episode (or current) mixed, moderate F31.62 and Mild cognitive impairment G31.84 [place] [address] [place] [id number] [address] [place] [address] Sep, Bipolar I disorder, most rec ent episode (or current) mixed, moderate F31.62 and Mild cognitive impairment G31.84 [place] [address] [place] [id number] [address] [place] [address] Sep, [facility] [address] [place] [id number] [address] [place] [address] Sep, Diabetes E11.9 ; Hypoxia R09 .02 ; Hyperglycemia R73.9 ; Therapeutic drug monitoring Z51.81 ; BMI 50.0-59.9, adult Z68.43 and Skin cancer C44.90 [place] [address] [place] [id number] [place] [address] Sep, Chronic pain G89.29 [place] [address] [place] [id number] [place] [address] Sep, Bipolar I disorder, most rec ent episode (or current) mixed, moderate F31.62 [place] [address] [place] [id number] [place] [address] Sep, [place] [address] [place] [id number] [place] [address] Sep, [place] [address] [place] [id number] [address] [place] [address] Aug, Chronic pain G89.29 [place] [address] [place] [id number] [address] [place] [address] Aug, Bipolar I disorder, most rec ent episode (or current) mixed, moderate F31.62 [place] [address] [place] [id number] [address] [place] [address] Aug, Bipolar I disorder, most rec ent episode (or current) mixed, moderate F31.62 and Mild cognitive impairment G31.84 [place] [address] [place] [id number] [address] [place] [address] Jul, [place] [address] [place] [id number] [address] [place] [address] Jul, Chronic pain G89.29 [facility] [address] [place] [id number] [address] [place] [address] Jul, Bipolar I disorder, most rec ent episode (or current) mixed, moderate F31.62 and Mild cognitive impairment G31.84 [place] [address] [facility] [id number] [address] [place] [phone] Jul, Bipolar I disorder, most rec ent episode (or current) mixed, moderate F31.62 and MCI (mild cognitive impairment) G31.84 [place] [address] [facility] [id number] [address] [place] [address] Jul, [facility] [address] [facility] [id number] [address] [place] [address] Jul, [place] [address] [place] [id number] [place] [address] Jul, Bipolar I disorder, most rec ent episode (or current) mixed, moderate F31.62 [place] [address] [place] [id number] [address] [place] [address] Jul, Chronic pain G89.29 [place] [address] [facility] [id number] [address] [place] [address] Jun, Bipolar I disorder, most rec ent episode (or current) mixed, moderate F31.62 [place] [address] [place] [id number] [address] [place] [address] Jun, Pre-procedure lab exam Z01.8 12 [place] [address] [place] [id number] [address] [place] [address] Jun, [facility] [address] [id number] [place] [id number] Jun, [place] [address] [facility] [id number] [address] [place] [address] Jun, [place] [address] [place] [id number] [address] [place] [address] Jun, Forgetfulness R68.89 ; Pre-s yncope R55 ; Localized edema R60.0 ; Other iron deficiency anemia D50.8 and BMI 50.0-59.9, adult Z68.43 [facility] [address] [facility] [id number] [address] [place] [address] Jun, Chronic pain G89.29 [facility] [address] [facility] [id number] [address] [place] [address] Jun, Chronic pain G89.29 [facility] [address] [facility] [id number] [address] [place] [address] Jun, Bipolar I disorder, most rec ent episode (or current) mixed, moderate F31.62 [facility] [address] [facility] [id number] [address] [place] [address] May, Chronic pain G89.29 [facility] [address] [facility] [id number] [address] [place] [address] Apr, [place] [address] [facility] [id number] [address] [place] [address] Apr, Chronic pain G89.29 [facility] [address] [facility] [id number] [address] [place] [address] Apr, Primary osteoarthritis of ri ght knee M17.11 [facility] [address] [facility] [id number] [address] [place] [address] Mar, [facility] [address] [facility] [id number] [address] [place] [address] Mar, BMI 50.0-59.9, adult Z68.43 and Bipolar disorder, in partial remission, most recent episode depressed F31.75 [facility] [address] [facility] [id number] [address] [place] [address] Mar, Diabetes E11.9 ; Pure hyperc holesterolemia E78.00 ; Essential hypertension I10 ; Nausea with vomiting, unspecified R11.2 and Headache, unspecified headache type R51 [facility] [address] [facility] [id number] [address] [place] [address] Mar, Bipolar I disorder, most rec ent episode (or current) mixed, moderate F31.62 [facility] [address] [id number] [address] [place] [address] 16 Mar, 2018 Bipolar I disorder, most rec ent episode (or current) mixed, moderate F31.62 [facility] [address] [facility] [id number] [address] [place] [address] Mar, Chronic pain G89.29 [facility] [address] [facility] [id number] [address] [place] [address] Mar, Bipolar I disorder, most rec ent episode (or current) mixed, moderate F31.62 [facility] [address] [facility] [id number] [address] [place] [address] Feb, Bipolar I disorder, most rec ent episode (or current) mixed, moderate F31.62 [facility] [address] [facility] [id number] [address] [place] [phone] Feb, Chronic pain G89.29 [facility] [address] [facility] [id number] [address] [place] [phone] Feb, Decubitus ulcer of right josselin t, stage 3 L89.893 and BMI 50.0-59.9, adult Z68.43 [facility] [address] [facility] [id number] [address] [place] [phone] Feb, Bipolar I disorder, most rec ent episode (or current) mixed, moderate F31.62 [facility] [address] [facility] [id number] [address] [place] [phone] Feb, [facility] [address] [facility] [id number] [address] [place] [id number] January, [facility] [address] [facility] [id number] [address] [place] [phone] January, Chronic pain G89.29 [facility] [address] [facility] [id number] [address] [place] [phone] January, Bipolar I disorder, most rec ent episode (or current) mixed, moderate F31.62 [place] [address] [place] [id number] [address] [place] [phone] January, Bipolar I disorder, most rec ent episode (or current) mixed, moderate F31.62 [place] [address] [place] [id number] [place] [address] Dec, Bipolar I disorder, most rec ent episode (or current) mixed, moderate F31.62 and BMI 50.0-59.9, adult Z68.43 [place] [address] [address] Dec, Bipolar I disorder, most rec ent episode (or current) mixed, moderate F31.62 [place] [address] [address] Dec, Chronic pain G89.29 [place] [address] [address] Dec, DM neuro manif type II E11.4 9 ; Right flank pain R10.9 ; FPC 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 Z79.891 ; Encounter for medication monitoring Z51.81 and BMI 50.0-59.9, adult Z68.43 [place] [address] [address] Dec, Bipolar I disorder, most rec ent episode (or current) mixed, moderate F31.62 [place] [address] [address] [place] [id number] [address] [place] [address] Nov, Bipolar I disorder, most rec ent episode (or current) mixed, moderate F31.62 [place] [address] [place] [id number] [address] [place] [address] Nov, Chronic pain G89.29 [place] [address] [place] [id number] [place] [address] Nov, Bipolar I disorder, most rec ent episode (or current) mixed, moderate F31.62 [place] [address] [place] [id number] [place] [address] Nov, Hypokalemia E87.6 [place] [address] [place] [id number] [place] [address] Nov, Bipolar I disorder, most rec ent episode (or current) mixed, moderate F31.62 [place] [address] [address] Oct, Chronic pain G89.29 [place] [address] [address] Oct, BMI 50.0-59.9, adult Z68.43 and Bipolar I disorder, most recent episode (or current) mixed, moderate F31.62 [place] [address] [address] Oct, Bipolar I disorder, most rec ent episode (or current) mixed, moderate F31.62 [place] [address] [address] Oct, [place] [address] [address] Oct, Hypokalemia E87.6 [place] [address] [place] [id number] [place] [address] Oct, DM neuro manif type II E11.4 9 [place] [address] [address] Oct, Bipolar I disorder, most rec ent episode (or current) mixed, moderate F31.62 [place] [address] [address] Oct, Bipolar I disorder, most rec ent episode (or current) mixed, moderate F31.62 [place] [address] [place] [id number] [place] [address] 14 Oct, 2017 Hyperkalemia E87.5 ; Falling R29.6 ; BMI 50.0-59.9, adult Z68.43 and Acute left ankle pain M25.572 [place] [id number] [place] [address] 08 Oct, 2017 DM neuro manif type II E11.4 9 [place] [address] [place] [id number] [address] [place] [address] Oct, [place] [address] [place] [id number] [place] [address] Sep, Chronic pain G89.29 [place] [address] [place] [id number] [address] [place] [address] Sep, [place] [address] [place] [id number] [place] [address] Sep, Bilateral primary osteoarthr itis of knee M17.0 [place] [address] [address] Sep, Generalized edema R60.1 [place] [address] [address] 16 Sep, 2017 Bipolar I disorder, most rec ent episode (or current) mixed, moderate F31.62 [place] [address] [address] 15 Sep, 2017 Hypoxia R09.02 ; Other hyper volemia E87.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 ; Anemia of chronic illness D63.8 and BMI 50.0- 59.9, adult Z68.43 [place] [address] [address] Sep, [place] [address] [place] [id number] [place] [address] Sep, Bipolar I disorder, most rec ent episode (or current) mixed, moderate F31.62 [place] [address] [place] [address] Aug, Chronic pain G89.29 [facility] [address] [facility] [id number] [address] [place] [address] Aug, Generalized edema R60.1 [facility] [address] [facility] [id number] [address] [place] [address] Aug, [facility] [address] [facility] [id number] [address] [place] [address] Aug, [facility] [address] [facility] [id number] [address] [place] [address] 14 Aug, 2017 Bipolar I disorder, most rec ent episode (or current) mixed, moderate F31.62 [place] [address] [place] [id number] [address] [place] [address] 07 Aug, 2017 Bipolar I disorder, most rec ent episode (or current) mixed, moderate F31.62 [place] [address] [place] [id number] [address] [place] [address] Aug, Chronic pain G89.29 [facility] [address] [facility] [id number] [address] [place] [address] 30 Jul, 2017 Bipolar I disorder, most rec ent episode (or current) mixed, moderate F31.62 [facility] [address] [facility] [id number] [address] [place] [address] Jul, Bipolar I disorder, most rec ent episode (or current) mixed, moderate F31.62 and BMI 60.0-69.9, adult Z68.44 [facility] [address] [facility] [id number] [address] [place] [address] 16 Jul, 2017 Bipolar I disorder, most rec ent episode (or current) mixed, moderate F31.62 [facility] [address] [facility] [id number] [address] [place] [address] 06 Jul, 2017 Chronic pain G89.29 [facility] [address] [place] [id number] [address] [place] [address] Jul, Bipolar I disorder, most rec ent episode (or current) mixed, moderate F31.62 [facility] [address] [facility] [id number] [address] [place] [address] Jun, Polyneuropathy associated wi th underlying disease G63 and Diabetes E11.9 [facility] [address] [facility] [id number] [address] [place] [address] 16 Jun, 2017 Bipolar I disorder, most rec ent episode (or current) mixed, moderate F31.62 [facility] [address] [facility] [id number] [address] [place] [address] Jun, Chronic pain G89.29 [facility] [address] [facility] [id number] [address] [place] [address] May, Bipolar I disorder, most rec ent episode (or current) mixed, moderate F31.62 [facility] [address] [place] [id number] [address] [place] [address] May, Bipolar I disorder, most rec ent episode (or current) mixed, moderate F31.62 [facility] [address] [facility] [id number] [address] [place] [address] 20 May, 2017 Diabetic polyneuropathy asso ciated with type 2 diabetes mellitus E11.42 [facility] [address] [facility] [id number] [address] [place] [address] 18 May, 2017 Bipolar I disorder, most rec ent episode (or current) mixed, moderate F31.62 [facility] [address] [facility] [id number] [address] [place] [phone] 13 May, 2017 Bipolar I disorder, most rec ent episode (or current) mixed, moderate F31.62 [facility] [address] [facility] [id number] [address] [place] [address] May, Chronic pain G89.29 [facility] [address] [facility] [id number] [address] [place] [address] Apr, Bipolar I disorder, most rec ent episode (or current) mixed, moderate F31.62 [facility] [address] [id number] [address] [place] [address] Apr, [facility] [address] [id number] [address] [place] [address] Apr, Chronic pain G89.29 and DM n euro manif type II E11.49 [facility] [address] [id number] [address] [place] [address] Apr, [facility] [address] [id number] [address] [place] [address] Apr, Bipolar I disorder, most rec ent episode (or current) mixed, moderate F31.62 [facility] [address] [facility] [id number] [address] [place] [address] Apr, Chronic pain G89.29 [facility] [address] [facility] [id number] [address] [place] [address] Apr, Iliotibial band syndrome, le ft M76.32 [facility] [address] [facility] [id number] [address] [place] [address] Apr, Bipolar I disorder, most rec ent episode (or current) mixed, moderate F31.62 [facility] [address] [facility] [id number] [address] [place] [address] Mar, Bipolar I disorder, most rec ent episode (or current) mixed, moderate F31.62 [facility] [address] [facility] [id number] [address] [place] [address] Mar, Bipolar I disorder, most rec ent episode (or current) mixed, moderate F31.62 [facility] [address] [facility] [id number] [address] [place] [address] Mar, [facility] [address] [facility] [id number] [address] [place] [address] Mar, Bipolar I disorder, most rec ent episode (or current) mixed, moderate F31.62 [facility] [address] [facility] [id number] [address] [place] [address] Mar, Chronic pain G89.29 [facility] [address] [facility] [id number] [address] [place] [address] Mar, Bipolar I disorder, most rec ent episode (or current) mixed, moderate F31.62 [facility] [address] [facility] [id number] [address] [place] [address] Mar, Bipolar I disorder, most rec ent episode (or current) mixed, moderate F31.62 [facility] [address] [facility] [id number] [address] [place] [address] Mar, Acute pain of left knee M25. 562 ; Left hip pain M25.552 ; Generalized edema R60.1 and Tongue swelling R22.0 [facility] [address] [facility] [id number] [address] [place] [address] Mar, [facility] [address] [facility] [id number] [address] [place] [address] Feb, Chronic pain G89.29 [facility] [address] [facility] [id number] [address] [place] [address] Feb, Diabetes E11.9 [facility] [address] [facility] [id number] [address] [place] [address] January, Chronic pain G89.29 [facility] [address] [facility] [id number] [address] [place] [address] January, [facility] [address] [facility] [id number] [address] [place] [address] January, Bipolar I disorder, most rec ent episode (or current) mixed, moderate F31.62 [facility] [address] [facility] [id number] [address] [place] [address] Dec, Bipolar I disorder, most rec ent episode (or current) mixed, moderate F31.62 [facility] [address] [facility] [id number] [address] [place] [address] 24 Apr, 2017 Chronic pain G89.29 [facility] [address] [id number] [address] [place] [phone] Dec, Bipolar I disorder, most rec ent episode (or current) mixed, moderate F31.62 [facility] [address] [facility] [id number] [address] [place] [address] Dec, Diabetes E11.9 ; Essential h ypertension I10 ; Chronic pain G89.29 and Morbid obesity E66.01 [facility] [address] [facility] [id number] [address] [place] [address] Dec, [facility] [address] [facility] [id number] [address] [place] [address] Dec, Bipolar I disorder, most rec ent episode (or current) mixed, moderate F31.62 [facility] [address] [facility] [id number] [address] [place] [address] Dec, Bipolar I disorder, most rec ent episode (or current) mixed, moderate F31.62 [facility] [address] [facility] [id number] [address] [place] [address] Nov, Chronic pain G89.29 [facility] [address] [facility] [id number] [address] [place] [address] Nov, Bipolar I disorder, most rec ent episode (or current) mixed, moderate F31.62 [facility] [address] [facility] [id number] [address] [place] [address] Nov, [facility] [address] [facility] [id number] [address] [place] [address] Nov, Bipolar I disorder, most rec ent episode (or current) mixed, moderate F31.62 [facility] [address] [facility] [id number] [address] [place] [address] Nov, Bipolar I disorder, most rec ent episode (or current) mixed, moderate F31.62 [facility] [address] [facility] [id number] [address] [place] [address] Nov, [facility] [address] [id number] [address] [place] [address] Nov, [facility] [address] [id number] [address] [place] [address] Nov, [facility] [address] [facility] [id number] [address] [place] [address] Oct, Chronic pain G89.29 [facility] [address] [facility] [id number] [address] [place] [address] Oct, Bipolar I disorder, most rec ent episode (or current) mixed, moderate F31.62 [facility] [address] [id number] [address] [place] [address] Oct, [facility] [address] [facility] [id number] [address] [place] [address] Oct, Chronic pain G89.29 ; Diabet es E11.9 ; Anxiety F41.9 and 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 [facility] [address] [facility] [id number] [address] [place] [address] Oct, [facility] [address] [facility] [id number] [address] [place] [address] Oct, Diabetes E11.9 [facility] [address] [facility] [id number] [address] [place] [address] Oct, Bipolar I disorder, most rec ent episode (or current) mixed, moderate F31.62 [facility] [address] [facility] [id number] [address] [place] [address] Sep, Chronic pain G89.29 [facility] [address] [facility] [id number] [address] [place] [address] Sep, Chronic pain G89.29 [facility] [address] [facility] [id number] [address] [place] [address] Aug, Chronic pain G89.29 [facility] [address] [facility] [id number] [address] [place] [address] Jul, [facility] [address] [place] [id number] [address] [place] [address] Jul, Diabetes E11.9 [facility] [address] [place] [id number] [address] [place] [address] Jul, Chronic pain G89.29 [place] [address] [place] [id number] [address] [place] [address] Jul, Bipolar I disorder, most rec ent episode (or current) mixed, moderate F31.62 [place] [address] [place] [id number] [place] [address] Jun, Bipolar I disorder, most rec ent episode (or current) mixed, moderate F31.62 [place] [address] [place] [id number] [address] [place] [address] Jun, [place] [address] [place] [id number] [address] [place] [address] Jun, Bipolar I disorder, most rec ent episode (or current) mixed, moderate F31.62 [place] [address] [place] [id number] [address] [place] [address] May, Insomnia, unspecified type G 47.00 [place] [address] [place] [id number] [address] [place] [address] May, Bipolar I disorder, most rec ent episode (or current) mixed, moderate F31.62 [place] [address] [place] [id number] [address] [place] [address] 14 May, 2016 [place] [address] [place] [id number] [place] [address] 08 May, 2016 Bipolar I disorder, most rec ent episode (or current) mixed, moderate F31.62 [place] [address] [place] [id number] [address] [place] [address] May, Diabetes E11.9 and Essential hypertension I10 [facility] [address] [id number] [address] [place] [address] Apr, Chronic pain G89.29 [facility] [address] [facility] [id number] [address] [place] [address] Apr, Bipolar I disorder, most rec ent episode (or current) mixed, moderate F31.62 [place] [address] [facility] [id number] [address] [place] [address] Apr, [facility] [address] [facility] [id number] [address] [place] [address] Apr, [place] [address] [facility] [id number] [address] [place] [address] Mar, Chronic pain G89.29 ; Headac he, unspecified headache type R51 ; Neuropathy G62.9 ; Pain of right hip joint M25.551 and Essential hypertension I10 [place] [address] [facility] [id number] [address] [place] [address] Mar, Chronic pain G89.29 [place] [address] [facility] [id number] [address] [place] [address] Mar, Bipolar I disorder, most rec ent episode (or current) mixed, moderate F31.62 [place] [address] [facility] [id number] [address] [place] [address] Feb, Bipolar I disorder, most rec ent episode (or current) mixed, moderate F31.62 and Insomnia, unspecified type G47.00 [place] [address] [id number] [address] [place] [address] Feb, Chronic pain G89.29 [place] [address] [facility] [id number] [address] [place] [address] Feb, Bipolar I disorder, most rec ent episode (or current) mixed, moderate F31.62 [place] [address] [facility] [id number] [address] [place] [address] January, Bipolar I disorder, most rec ent episode (or current) mixed, moderate F31.62 [facility] [address] [id number] [address] [place] [address] January, Chronic pain G89.29 [facility] [address] [facility] [id number] [address] [place] [address] January, Chronic pain G89.29 and Esse ntial hypertension I10 [facility] [address] [id number] [address] [place] [address] January, Bipolar I disorder, most rec ent episode (or current) mixed, moderate F31.62 [facility] [address] [id number] [address] [place] [address] Dec, [facility] [address] [facility] [id number] [address] [place] [address] Dec, [facility] [address] [facility] [id number] [address] [place] [address] Dec, [facility] [address] [facility] [id number] [address] [place] [address] Dec, [facility] [address] [facility] [id number] [address] [place] [address] Nov, Reactive airway disease J45. 909 [facility] [address] [facility] [id number] [address] [place] [address] Nov, [facility] [address] [id number] [address] [place] [address] Nov, [facility] [address] [facility] [id number] [address] [place] [address] Nov, [facility] [address] [facility] [id number] [address] [place] [address] Nov, [facility] [address] [facility] [id number] [address] [place] [address] Nov, Onychomycosis B35.1 ; Hammer toe M20.40 ; [place] or callus L84 and DM neuro manif type II E11.49 [facility] [address] [place] [id number] [address] [place] [address] Nov, Chronic pain G89.29 ; Leukoc ytosis D72.829 and Diabetes E11.9 [facility] [address] [facility] [id number] [address] [place] [address] Nov, [facility] [address] [place] [id number] [address] [place] [address] Oct, Bronchitis J40 [facility] [address] [place] [id number] [address] [place] [address] Oct, [place] [address] [address] Oct, [place] [address] [address] Oct, Mastoiditis, unspecified lat erality H70.90 and Type 2 diabetes mellitus with complication E11.8 [place] [address] [address] [place] [id number] [address] [place] [phone] Sep, [place] [address] [address] Sep, Dysuria R30.0 ; Cough R05 ; Benign prostatic hyperplasia with lower urinary tract symptoms, unspecified morphology N40.1 ; Hypokalemia E87.6 and Eustachian tube dysfunction, unspecified laterality H69.80 [place] [id number] [place] [phone] Sep, Moderate mixed bipolar I dis order F31.62 [place] [address] [address] Sep, Hypokalemia E87.6 [place] [address] [place] [id number] [address] [place] [phone] Sep, [place] [address] [id number] Sep, Upper respiratory tract infe ction, unspecified type J06.9 [facility] [address] [id number] [address] [place] [phone] Aug, [facility] [address] [id number] [address] [place] [phone] Aug, Dysuria R30.0 [facility] [address] [id number] [address] [place] [id number] Aug, [facility] [address] [id number] [address] [place] [id number] Jul, [facility] [address] [id number] [address] [place] [phone] Jul, [facility] [address] [id number] [address] [place] [id number] Jul, [facility] [address] [id number] [address] [place] [phone] Jul, [facility] [address] [id number] [address] [place] [phone] Jun, [facility] [address] [id number] [address] [place] [phone] Jun, [facility] [address] [id number] [address] [place] [phone] Jun, [facility] [address] [id number] [address] [place] [phone] May, [facility] [address] [id number] [address] [place] [phone] May, Bipolar I disorder, most rec ent episode (or current) mixed, moderate 296.62 [facility] [address] [id number] [address] [place] [id number] 16 May, 2015 [facility] [address] [id number] [address] [place] [phone] May, Bipolar I disorder, most rec ent episode (or current) mixed, moderate 296.62 and Major depressive disorder, recurrent episode, severe, specified as with psychotic behavior 296.34 [facility] [address] [facility] [id number] [address] [place] [address] May, Bipolar I disorder, most rec ent episode (or current) mixed, moderate 296.62 [facility] [address] [facility] [id number] [address] [place] [address] May, [facility] [address] [facility] [id number] [address] [place] [address] Apr, [facility] [address] [facility] [id number] [address] [place] [address] Apr, [facility] [address] [place] [id number] [address] [place] [address] Apr, Unspecified disorder of kidn ey and ureter 593.9 and Diabetes mellitus type 2, uncontrolled 250.02 [facility] [address] [place] [id number] [address] [place] [address] Apr, [facility] [address] [facility] [id number] [address] [place] [address] Apr, [facility] [address] [place] [id number] [address] [place] [address] Apr, [facility] [address] [facility] [id number] [address] [place] [address] Apr, [facility] [address] [place] [id number] [address] [place] [address] Apr, Diabetes mellitus type II, u ncontrolled 250.02 [facility] [address] [facility] [id number] [address] [place] [address] Apr, [facility] [address] [facility] [id number] [address] [place] [address] Mar, [facility] [address] [place] [id number] [address] [place] [address] Mar, [facility] [address] [facility] [id number] [address] [place] [address] Mar, [facility] [address] [place] [id number] [address] [place] [address] Mar, Major depressive disorder, r ecurrent episode, severe, specified as with psychotic behavior 296.34 and Bipolar I disorder, most recent episode (or current) mixed, moderate 296.62 [facility] [id number] [place] [address] Mar, Diabetes 250.00 ; Anuria 788 .5 ; Nausea and vomiting 787.01 and Diarrhea 787.91 [facility] [address] [place] [id number] [address] [place] [address] Mar, Diabetes 250.00 [facility] [address] [place] [id number] [address] [place] [address] Mar, [facility] [address] [place] [id number] [address] [place] [address] Mar, Diabetes 250.00 [facility] [address] [place] [id number] [address] [place] [address] Mar, [facility] [address] [place] [id number] [address] [place] [address] Mar, [facility] [address] [place] [id number] [address] [place] [address] Mar, [facility] [address] [place] [id number] [address] [place] [address] Mar, [facility] [address] [place] [id number] [address] [place] [address] Mar, Bipolar I disorder, most rec ent episode (or current) mixed, moderate 296.62 and Major depressive disorder, recurrent episode, severe, specified as with psychotic behavior 296.34 [facility] [address] [place] [id number] [address] [place] [address] Mar, Magnesium deficiency 275.2 ; Hypokalemia 276.8 ; Nausea & vomiting 787.01 and Diabetes mellitus type 2, uncontrolled 250.02 [place] [address] [address] Feb, [facility] [address] [address] Feb, Bipolar I disorder, most rec ent episode (or current) mixed, moderate 296.62 [place] [address] [address] Feb, Nausea and vomiting 787.01 ; Left elbow pain 719.42 ; Anuria 788.5 and Diabetes 250.00 [place] [address] [address] Feb, [place] [address] [address] Feb, Hypopotassemia 276.8 and Hyp okalemia 276.[address] [address] Feb, Hypopotassemia 276.8 and Hyp okalemia 276.8 [place] [address] [address] Feb, Seborrheic keratoses 702.19 [place] [address] [address] Feb, Hypopotassemia 276.8 and Low magnesium levels 275.2 [place] [address] [address] January, [place] [address] [address] January, [place] [address] [address] January, [place] [address] [address] January, Scalp lesion 709.9 [facility] [address] [id number] [address] [place] [address] January, [facility] [address] [id number] [address] [place] [address] Dec, Tear of medial cartilage or meniscus of knee, current 836.0 and 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 [facility] [address] [id number] [address] [place] [address] Dec, [facility] [address] [id number] [address] [place] [address] Dec, [facility] [address] [id number] [address] [place] [address] Dec, Squamous cell carcinoma, 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 [facility] [address] [id number] [address] [place] [address] Dec, [facility] [address] [id number] [address] [place] [address] Dec, [facility] [address] [id number] [address] [place] [address] Nov, [facility] [address] [id number] [address] [place] [address] Nov, [facility] [address] [id number] [address] [place] [address] Nov, [facility] [address] [id number] [address] [place] [address] Nov, [facility] [address] [id number] [address] [place] [address] Nov, [facility] [address] [id number] [address] [place] [address] Nov, [facility] [address] [id number] [address] [place] [address] Nov, [facility] [address] [id number] [address] [place] [address], [place] [address] Nov, 2014 [facility] [address] [id number] [address] [place] [address], [place] [address] Nov, 2014 [facility] [address] [id number] [address] [place] [address], [place] [address] Nov, 2014 [facility] [address] [id number] [address] [place] [address], [place] [address] Nov, 2014 [facility] [address] [id number] [address] [place] [address], [place] [address] Nov, 2014 [facility] [address] [id number] [address] [place] [address], [place] [address] Oct, 2014 [facility] [address] [id number] [address] [place] [address], [place] [address] Oct, 2014 [facility] [address] [id number] [address] [place] [address], [place] [address] Oct, 2014 [facility] [address] [id number] [address] [place] [address], [place] [address] Oct, 2014 [facility] [address] [id number] [address] [place] [address], [place] [address] Oct, 2014 [facility] [address] [id number] [address] [place] [address] Oct, 2014 [facility] [address] [id number] [address] [place] [address] Oct, 2014 [facility] [address] [id number] [address] [place] [address], [place] [address] Oct, 2014 [facility] [address] [id number] [address] [place] [address] Oct, 2014 [facility] [address] [id number] [address] [place] [address] Sep, [facility] [address] [id number] [address] [place] [address] Sep, [facility] [address] [id number] [address] [place] [address], [place] [address] Sep, [facility] [address] [id number] [address] [place] [address], [place] [address] Sep, [facility] [address] [id number] [address] [place] [address], [place] [address] Sep, [facility] [address] [id number] [address] [place] [address], [place] [address] Sep, [facility] [address] [id number] [address] [place] [address], [place] [address] Sep, [facility] [address] [id number] [address] [place] [address], [place] [address] Sep, [facility] [address] [id number] [address] [place] [address], [place] [address] Sep, [facility] [address] [id number] [address] [place] [address], [place] [address] Sep, [facility] [address] [id number] [address] [place] [address], [place] [address] Sep, [facility] [address] [id number] [address] [place] [address], [place] [address] Sep, [facility] [address] [id number] [address] [place] [address], [place] [address] Sep, [facility] [address] [id number] [address] [place] [address], [place] [address] Sep, [facility] [address] [id number] [address] [place] [address], [place] [address] Sep, [facility] [address] [id number] [address] [place] [address], [place] [address] Sep, [facility] [address] [id number] [address] [place] [address], [place] [address] Aug, [facility] [address] [id number] [facility] [place] [address] Aug, [facility] [address] [id number] [facility] [place] [address] Aug, [facility] [address] [id number] [facility] [place] [address] Aug, [facility] [address] [id number] [facility] [place] [address] Aug, [facility] [address] [id number] [facility] [place] [address] Aug, [facility] [address] [id number] [facility] [place] [address] Aug, [facility] [address] [id number] [facility] [place] [address] Aug, [facility] [address] [id number] [address] [place] [address], [place] [address] Aug, [facility] [address] [id number] [address] [place] [address], [place] [address] Aug, [facility] [address] [id number] [address] [place] [address], [place] [address] Aug, [facility] [address] [place] [id number] Aug, [facility] [address] [id number] [address] [place] [address], [place] [address] Aug, [facility] [address] [id number] [address] [place] [address], [place] [address] Aug, [facility] [address] [id number] [facility] [place] [address] Aug, [facility] [address] [id number] [facility] [place] [address] Aug, [facility] [address] [id number] [facility] [place] [address] Aug, [facility] [address] [id number] [address] [place] [address], [place] [address] Aug, [facility] [address] [id number] [address] [place] [address], [place] [address] Aug, [facility] [address] [id number] [address] [place] [address], [place] [address] Aug, [facility] [address] [id number] [address] [place] [address], [place] [address] Aug, [facility] [address] [id number] [address] [place] [address], [place] [address] Aug, [facility] [address] [id number] [address] [place] [address], [place] [address] Aug, [facility] [address] [id number] [address] [place] [address], [place] [address] Aug, [facility] [address] [id number] [address] [place] [address], [place] [address] Aug, [facility] [address] [id number] [address] [place] [address], [place] [address] Aug, [facility] [address] [id number] [address] [place] [address], [place] [address] Aug, [facility] [address] [id number] [address] [place] [address], [place] [address] Aug, [facility] [address] [id number] [address] [place] [address], [place] [address] Aug, [facility] [address] [id number] [address] [place] [address], [place] [address] Aug, [facility] [address] [id number] [address] [place] [address], [place] [address] Jul, [facility] [address] [id number] [address] [place] [address], [place] [address] Jul, [facility] [address] [id number] [address] [place] [address] Jul, [facility] [address] [id number] [address] [place] [address], [place] [address] Jul, [facility] [address] [id number] [address] [place] [address], [place] [address] Jul, [facility] [address] [id number] [address] [place] [address], [place] [address] Jul, [facility] [address] [id number] [address] [place] [address], [place] [address] Jul, [facility] [address] [id number] [address] [place] [address], [place] [address] Jul, [facility] [address] [id number] [address] [place] [address], [place] [address] Jul, [facility] [address] [id number] [address] [place] [address], [place] [address] Jul, [facility] [address] [id number] [address] [place] [address], [place] [address] Jun, [facility] [address] [id number] [address] [place] [address], [place] [address] Jun, [facility] [address] [id number] [address] [place] [address], [place] [address] Jun, [facility] [address] [id number] [address] [place] [address] Jun, [facility] [address] [id number] [address] [place] [address] Jun, [facility] [address] [id number] [address] [place] [address] Jun, [facility] [address] [id number] [address] [place] [address], [place] [address] Jun, [facility] [address] [id number] [address] [place] [address] Jun, [facility] [address] [id number] [facility] [place] [address] Jun, [facility] [address] [id number] [address] [place] [address], [place] [address] Jun, [facility] [address] [id number] [address] [place] [address], [place] [address] 29 May, 2013 [facility] [address] [id number] [address] [place] [address], [place] [address] 29 Sep, 2013 [facility] [address] [id number] [address] [place] [address], [place] [address] 26 May, 2013 [facility] [address] [id number] [address] [place] [address], [place] [address] 26 May, 2013 [facility] [address] [id number] [address] [place] [address], [place] [address] 17 May, 2013 [facility] [address] [id number] [address] [place] [address], [place] [address] 17 May, 2013 [facility] [address] [id number] [address] [place] [address], [place] [address] 15 May, 2013 [facility] [address] [id number] [address] [place] [address], [place] [address] 15 May, 2013 [facility] [address] [id number] [address] [place] [address], [place] [address] 15 May, 2013 [facility] [address] [id number] [address] [place] [address], [place] [address] 15 May, 2013 [facility] [address] [id number] [address] [place] [address], [place] [address] 10 Sep, 2013 [facility] [address] [id number] [address] [place] [address], [place] [address] 10 Sep, 2013 [facility] [address] [id number] [address] [place] [address], [place] [address] 09 Sep, 2013 [facility] [address] [id number] [address] [place] [address], [place] [address] May, [facility] [address] [id number] [facility] [place] [address] May, [facility] [address] [id number] [facility] [place] [address] May, [facility] [address] [id number] [facility] [place] [address] Apr, [facility] [address] [id number] [address] [place] [address], [place] [address] Apr, [facility] [address] [id number] [address] [place] [address], [place] [address] Apr, [facility] [address] [id number] [address] [place] [address], [place] [address] Apr, [facility] [address] [id number] [address] [place] [address], [place] [address] Apr, [facility] [address] [id number] [address] [place] [address], [place] [address] Apr, [facility] [address] [id number] [address] [place] [address], [place] [address] Apr, [facility] [address] [id number] [address] [place] [address], [place] [address] Apr, [facility] [address] [id number] [address] [place] [address], [place] [address] Apr, [facility] [address] [id number] [address] [place] [address], [place] [address] Apr, [facility] [address] [id number] [address] [place] [address], [place] [address] Apr, [facility] [address] [id number] [address] [place] [address], [place] [address] Apr, [facility] [address] [id number] [address] [place] [address], [place] [address] Apr, [facility] [address] [id number] [facility] [place] [address] Apr, [facility] [address] [id number] [address] [place] [address], [place] [address] Apr, [facility] [address] [id number] [address] [place] [address], [place] [address] Mar, [facility] [address] [id number] [address] [place] [address], [place] [address] Mar, [facility] [address] [id number] [address] [place] [address], [place] [address] Mar, [facility] [address] [id number] [address] [place] [address], [place] [address] Mar, [facility] [address] [id number] [address] [place] [address], [place] [address] Mar, [facility] [address] [id number] [address] [place] [address], [place] [address] Mar, [facility] [address] [id number] [address] [place] [address], [place] [address] Mar, [facility] [address] [id number] [address] [place] [address], [place] [address] Mar, [facility] [address] [id number] [address] [place] [address], [place] [address] Mar, [facility] [address] [id number] [address] [place] [address], [place] [address] Mar, [facility] [address] [id number] [address] [place] [address], [place] [address] Mar, [facility] [address] [id number] [address] [place] [address], [place] [address] Mar, [facility] [address] [id number] [address] [place] [address], [place] [address] Mar, [facility] [address] [id number] [address] [place] [address], [place] [address] Mar, [facility] [address] [id number] [facility] [place] [address] Mar, 2013 [facility] [address] [id number] [facility] [place] [address] Mar, 2013 [facility] [address] [id number] [facility] [place] [address] Mar, [facility] [address] [id number] [facility] [place] [address] Mar, [facility] [address] [id number] [facility] [place] [address] Feb, [facility] [address] [id number] [address] [place] [address], [place] [address] Feb, [facility] [address] [id number] [address] [place] [address], [place] [address] Feb, [facility] [address] [id number] [address] [place] [address], [place] [address] Feb, [facility] [address] [id number] [address] [place] [address], [place] [address] Feb, [facility] [address] [id number] [address] [place] [address], [place] [address] Feb, [facility] [address] [id number] [address] [place] [address], [place] [address] Feb, [facility] [address] [id number] [address] [place] [address], [place] [address] Feb, [facility] [address] [id number] [address] [place] [address], [place] [address] Feb, [facility] [address] [id number] [address] [place] [address], [place] [address] Feb, [facility] [address] [id number] [address] [place] [address], [place] [address] Feb, [facility] [address] [id number] [address] [place] [address], [place] [address] Feb, [facility] [address] [id number] [address] [place] [address], [place] [address] Feb, [facility] [address] [id number] [address] [place] [address], [place] [address] Feb, [facility] [address] [id number] [address] [place] [address], [place] [address] January, [facility] [address] [id number] [address] [place] [address], [place] [address] January, [facility] [address] [id number] [address] [place] [address], [place] [address] January, [facility] [address] [id number] [address] [place] [address], [place] [address] January, [facility] [address] [id number] [address] [place] [address], [place] [address] January, [facility] [address] [id number] [address] [place] [address], [place] [address] January, [facility] [address] [id number] [address] [place] [address], [place] [address] January, [facility] [address] [id number] [address] [place] [address], [place] [address] January, [facility] [address] [id number] [address] [place] [address], [place] [address] January, [facility] [address] [id number] [address] [place] [address], [place] [address] January, [facility] [address] [id number] [address] [place] [address], [place] [address] January, [facility] [address] [id number] [address] [place] [address], [place] [address] January, [facility] [address] [id number] [address] [place] [address], [place] [address] January, [facility] [address] [id number] [facility] [place] [address] January, [facility] [address] [id number] [facility] [place] [address] Dec, [facility] [address] [id number] [facility] [place] [address] Dec, [facility] [facility] [address] [id number] [address] [place] [address], [place] [address] Dec, [facility] [address] [id number] [address] [place] [address], [place] [address] Dec, [facility] [address] [id number] [address] [place] [address], [place] [address] Dec, [facility] [address] [id number] [address] [place] [address], [place] [address] Dec, [facility] [address] [id number] [address] [place] [address], [place] [address] Dec, [facility] [address] [id number] [address] [place] [address], [place] [address] Dec, [facility] [address] [id number] [address] [place] [address], [place] [address] Dec, [facility] [address] [id number] [address] [place] [address], [place] [address] Dec, [facility] [address] [id number] [address] [place] [address], [place] [address] Nov, [facility] [address] [id number] [address] [place] [address], [place] [address] Nov, [facility] [address] [id number] [address] [place] [address], [place] [address] Nov, [facility] [address] [id number] [address] [place] [address], [place] [address] Nov, [facility] [address] [id number] [address] [place] [address], [place] [address] Nov, [facility] [address] [id number] [facility] [place] [address] 08 Nov, 2013 [facility] [address] [id number] [address] [place] [address], [place] [address] Nov, [facility] [address] [id number] [address] [place] [address], [place] [address] Nov, [facility] [address] [id number] [address] [place] [address], [place] [address] Nov, [facility] [address] [id number] [address] [place] [address], [place] [address] Nov, [facility] [address] [id number] [address] [place] [address], [place] [address] Oct, [facility] [address] [id number] [address] [place] [address], [place] [address] Oct, [facility] [address] [id number] [address] [place] [address], [place] [address] Oct, [facility] [address] [id number] [address] [place] [address], [place] [address] Oct, [facility] [address] [id number] [address] [place] [address], [place] [address] Oct, [facility] [address] [id number] [address] [place] [address], [place] [address] Oct, [facility] [address] [id number] [address] [place] [address], [place] [address] 14 Oct, 2013 [facility] [address] [id number] [address] [place] [address], [place] [address] 14 Oct, 2013 [facility] [address] [id number] [address] [place] [address], [place] [address] 05 Oct, 2013 [facility] [address] [id number] [address] [place] [address], [place] [address] Oct, [facility] [address] [id number] [address] [place] [address], [place] [address] 04 Oct, 2013 [facility] [address] [id number] [address] [place] [address], [place] [address] Oct, [facility] [address] [id number] [address] [place] [address], [place] [address] Oct, [facility] [address] [id number] [address] [place] [address], [place] [address] Oct, [facility] [address] [id number] [address] [place] [address], [place] [address] Sep, [facility] [address] [id number] [address] [place] [address], [place] [address] Sep, [facility] [address] [id number] [address] [place] [address], [place] [address] Sep, [facility] [address] [id number] [address] [place] [address], [place] [address] Sep, [facility] [address] [id number] [address] [place] [address], [place] [address] Sep, [facility] [address] [id number] [address] [place] [address], [place] [address] Sep, [facility] [address] [id number] [address] [place] [address], [place] [address] Sep, [facility] [address] [id number] [address] [place] [address], [place] [address] Sep, [facility] [address] [id number] [address] [place] [address], [place] [address] Sep, [facility] [address] [id number] [address] [place] [address], [place] [address] Sep, [facility] [address] [id number] [address] [place] [address], [place] [address] 10 Aug, 2013 [facility] [address] [id number] [address] [place] [address], [place] [address] Aug, [facility] [address] [id number] [address] [place] [address], [place] [address] Jul, [facility] [address] [id number] [address] [place] [address], [place] [address] Jul, [facility] [address] [id number] [address] [place] [address], [place] [address] Jul, [facility] [address] [id number] [address] [place] [address], [place] [address] Jul, [facility] [address] [id number] [address] [place] [address], [place] [address] Jul, [facility] [address] [id number] [address] [place] [address] Jul, [facility] [address] [id number] [address] [place] [address], [place] [address] Jul, [facility] [address] [id number] [address] [place] [address] Jul, [facility] [address] [id number] [address] [place] [address] Jul, [facility] [address] [id number] [address] [place] [address] Jul, [facility] [address] [id number] [address] [place] [address] Jul, [facility] [address] [id number] [address] [place] [address] Jul, [facility] [address] [id number] [address] [place] [address] Jul, [facility] [address] [id number] [address] [place] [address] Jul, [facility] [address] [id number] [address] [place] [address] Jul, [facility] [address] [id number] [address] [place] [address], [place] [address] 05 Jul, 2012 [facility] [address] [id number] [address] [place] [address], [place] [address] Jul, 2012 [facility] [address] [id number] [address] [place] [address], [place] [address] Jul, 2012 [facility] [address] [id number] [address] [place] [address], [place] [address] Jul, 2012 [facility] [address] [id number] [address] [place] [address], [place] [address] Jun, 2012 [facility] [address] [id number] [address] [place] [address], [place] [address] Jun, 2012 [facility] [address] [id number] [address] [place] [address], [place] [address] Jun, 2012 [facility] [address] [id number] [address] [place] [address], [place] [address] Jun, 2012 [facility] [address] [id number] [address] [place] [address], [place] [address] Jun, 2012 [facility] [address] [id number] [address] [place] [address], [place] [address] Jun, 2012 [facility] [address] [id number] [address] [place] [address], [place] [address] Jun, 2012 [facility] [address] [id number] [address] [place] [address], [place] [address] Jun, 2012 [facility] [address] [id number] [address] [place] [address] Jun, [facility] [address] [id number] [address] [place] [address], [place] [address] Jun, [facility] [address] [id number] [address] [place] [address], [place] [address] Jun, [facility] [address] [id number] [address] [place] [address], [place] [address] May, [facility] [address] [id number] [address] [place] [address], [place] [address] 25 May, 2012 [facility] [address] [id number] [address] [place] [address], [place] [address] 19 May, 2012 [facility] [address] [id number] [address] [place] [address], [place] [address] 17 May, 2012 [facility] [address] [id number] [address] [place] [address], [place] [address] 11 May, 2012 [facility] [address] [id number] [address] [place] [address], [place] [address] 10 May, 2012 [facility] [address] [id number] [address] [place] [address], [place] [address] 09 May, 2012 [facility] [address] [id number] [address] [place] [address], [place] [address] 05 May, 2012 [facility] [address] [id number] [address] [place] [address], [place] [address] Apr, [facility] [address] [id number] [address] [place] [address], [place] [address] Apr, [facility] [address] [id number] [address] [place] [address], [place] [address] Apr, [facility] [address] [id number] [address] [place] [address], [place] [address] Apr, [facility] [address] [id number] [address] [place] [address], [place] [address] Apr, [facility] [address] [id number] [address] [place] [address], [place] [address] Mar, [facility] [address] [id number] [address] [place] [address], [place] [address] Mar, [facility] [address] [id number] [address] [place] [address], [place] [address] Mar, [facility] [address] [id number] [address] [place] [address], [place] [address] Mar, [facility] [address] [id number] [address] [place] [address], [place] [address] Mar, [facility] [address] [id number] [address] [place] [address], [place] [address] Mar, [facility] [address] [id number] [address] [place] [address], [place] [address] Mar, [facility] [address] [id number] [address] [place] [address], [place] [address] Mar, [facility] [address] [id number] [address] [place] [address], [place] [address] Feb, [facility] [address] [id number] [address] [place] [address], [place] [address] Feb, [facility] [address] [id number] [address] [place] [address], [place] [address] January, [facility] [address] [id number] [address] [place] [address], [place] [address] January, [facility] [address] [id number] [address] [place] [address], [place] [address] Dec, [facility] [address] [id number] [address] [place] [address], [place] [address] Dec, [facility] [address] [id number] [address] [place] [address], [place] [address] Nov, [facility] [address] [id number] [address] [place] [address], [place] [address] Nov, [facility] [address] [id number] [address] [place] [address], [place] [address] Nov, [facility] [address] [id number] [address] [place] [address], [place] [address] Nov, [facility] [address] [id number] [address] [place] [address], [place] [address] Oct, [facility] [address] [id number] [address] [place] [address], [place] [address] Oct, 2012 [facility] [address] [id number] [address] [place] [address], [place] [address] Oct, [facility] [address] [id number] [address] [place] [address], [place] [address] Oct, 2012 [facility] [address] [id number] [address] [place] [address], [place] [address] 16 Oct, 2012 [facility] [address] [id number] [address] [place] [address], [place] [address] 14 Oct, 2012 [facility] [address] [id number] [address] [place] [address], [place] [address] 08 Oct, 2012 [facility] [address] [id number] [address] [place] [address], [place] [address] 07 Oct, 2012 [facility] [address] [id number] [address] [place] [address], [place] [address] 03 Oct, 2012 [facility] [address] [id number] [address] [place] [address], [place] [address] Sep, [facility] [address] [id number] [address] [place] [address], [place] [address] Sep, [facility] [address] [id number] [address] [place] [address], [place] [address] Sep, [facility] [address] [id number] [address] [place] [address], [place] [address] Sep, [facility] [address] [id number] [address] [place] [address], [place] [address] Sep, [facility] [address] [id number] [address] [place] [address], [place] [address] Sep, [facility] [address] [id number] [address] [place] [address], [place] [address] Sep, [facility] [address] [id number] [address] [place] [address], [place] [address] Sep, [facility] [address] [id number] [address] [place] [address], [place] [address] Aug, [facility] [address] [id number] [address] [place] [address], [place] [address] Aug, [facility] [address] [id number] [address] [place] [address], [place] [address] Aug, [facility] [address] [id number] [address] [place] [address], [place] [address] Aug, [facility] [address] [id number] [address] [place] [address], [place] [address] Aug, [facility] [address] [id number] [address] [place] [address], [place] [address] Aug, [facility] [address] [id number] [address] [place] [address], [place] [address] Aug, [facility] [address] [id number] [address] [place] [address], [place] [address] Aug, [facility] [address] [id number] [address] [place] [address], [place] [address] Jul, [facility] [address] [id number] [address] [place] [address], [place] [address] Jul, [facility] [address] [id number] [address] [place] [address], [place] [address] Jul, [facility] [address] [id number] [address] [place] [address], [place] [address] Jul, [facility] [address] [id number] [address] [place] [address], [place] [address] Jul, [facility] [address] [id number] [address] [place] [address], [place] [address] Jul, [facility] [address] [id number] [address] [place] [address], [place] [address] Jun, [facility] [address] [id number] [address] [place] [address], [place] [address] Jun, [facility] [address] [id number] [address] [place] [address], [place] [address] Jun, [facility] [address] [id number] [address] [place] [address], [place] [address] Jun, [facility] [address] [id number] [address] [place] [address], [place] [address] Jun, [facility] [address] [id number] [address] [place] [address], [place] [address] Jun, [facility] [address] [id number] [address] [place] [address], [place] [address] Jun, [facility] [address] [id number] [address] [place] [address], [place] [address] Jun, [facility] [address] [id number] [address] [place] [address], [place] [address] 10 Jun, 2012 [facility] [address] [id number] [address] [place] [address], [place] [address] 26 May, 2012 [facility] [address] [id number] [address] [place] [address], [place] [address] 24 May, 2012 [facility] [address] [id number] [address] [place] [address], [place] [address] 18 May, 2012 [facility] [address] [id number] [address] [place] [address], [place] [address] 30 Apr, 2012 [facility] [address] [id number] [address] [place] [address], [place] [address] 29 Apr, 2012 [facility] [address] [id number] [address] [place] [address], [place] [address] Apr, [facility] [address] [id number] [address] [place] [address], [place] [address] 14 Apr, 2012 [facility] [address] [id number] [address] [place] [address], [place] [address] Apr, [facility] [address] [id number] [address] [place] [address], [place] [address] Apr, [facility] [address] [id number] [address] [place] [address], [place] [address] Mar, [facility] [address] [id number] [address] [place] [address], [place] [address] Mar, [facility] [address] [id number] [address] [place] [address], [place] [address] Mar, [facility] [address] [id number] [address] [place] [address], [place] [address] Mar, [facility] [address] [id number] [address] [place] [address], [place] [address] Feb, [facility] [address] [id number] [address] [place] [address], [place] [address] Feb, [facility] [address] [id number] [address] [place] [address], [place] [address] Feb, [facility] [address] [id number] [address] [place] [address], [place] [address] Feb, [facility] [address] [id number] [address] [place] [address], [place] [address] Feb, [facility] [address] [id number] [address] [place] [address], [place] [address] January, [facility] [address] [id number] [address] [place] [address], [place] [address] January, [facility] [address] [id number] [address] [place] [address], [place] [address] January, [facility] [address] [id number] [address] [place] [address], [place] [address] January, [facility] [address] [id number] [address] [place] [address], [place] [address] January, [facility] [address] [id number] [address] [place] [address], [place] [address] January, [facility] [address] [id number] [address] [place] [address], [place] [address] 24 Dec, 2011 [facility] [address] [id number] [address] [place] [address], [place] [address] 24 Dec, 2011 [facility] [address] [id number] [address] [place] [address], [place] [address] 17 Dec, 2011 [facility] [address] [id number] [address] [place] [address], [place] [address] 09 Dec, 2011 [facility] [address] [id number] [address] [place] [address], [place] [address] 06 Dec, 2011 [facility] [address] [id number] [address] [place] [address], [place] [address] 27 Nov, 2011 [facility] [address] [id number] [address] [place] [address], [place] [address] 14 Nov, 2011 [facility] [address] [id number] [address] [place] [address], [place] [address] 12 Nov, 2011 [facility] [address] [id number] [address] [place] [address], [place] [address] 07 Nov, 2011 [facility] [address] [id number] [address] [place] [address], [place] [address] 29 Oct, 2011 [facility] [address] [id number] [address] [place] [address], [place] [address] 28 Oct, 2011 [facility] [address] [id number] [address] [place] [address], [place] [address] 24 Oct, 2011 [facility] [address] [id number] [address] [place] [address], [place] [address] 13 Oct, 2011 [facility] [address] [id number] [address] [place] [address], [place] [address] 08 Oct, 2011 [facility] [address] [id number] [address] [place] [address], [place] [address] Sep, [facility] [address] [id number] [address] [place] [address], [place] [address] Sep, [facility] [address] [id number] [address] [place] [address], [place] [address] Sep, [facility] [address] [id number] [address] [place] [address], [place] [address] Sep, [facility] [address] [id number] [address] [place] [address], [place] [address] Sep, [facility] [address] [id number] [address] [place] [address], [place] [address] Sep, [facility] [address] [id number] [address] [place] [address], [place] [address] Aug, [facility] [address] [id number] [address] [place] [address], [place] [address] Aug, [facility] [address] [id number] [address] [place] [address] Aug, [facility] [address] [id number] [address] [place] [address], [place] [address] Jul, [facility] [address] [id number] [address] [place] [address] Jul, [facility] [address] [id number] [address] [place] [address] Jul, [facility] [address] [id number] [address] [place] [address] Jul, [facility] [address] [id number] [address] [place] [address], [place] [address] Jun, [facility] [address] [id number] [address] [place] [address], [place] [address] Jun, [facility] [address] [id number] [address] [place] [id number] Jun, [facility] [address] [id number] [address] [place] [address] 10 Jun, 2011 [facility] [address] [id number] [address] [place] [address], [place] [address] 10 Jun, 2011 [facility] [address] [id number] [address] [place] [address], [place] [address] 10 Jun, 2011 [facility] [address] [id number] [address] [place] [address], [place] [address] 11 Mar, 2011 [facility] [address] [id number] [address] [place] [address], [place] [address] 18 Dec, 2010 [facility] [address] [id number] [address] [place] [address], [place] [address] 11 Dec, 2010 [facility] [address] [id number] [address] [place] [address], [place] [address] 18 Nov, 2010 [facility] [address] [id number] [address] [place] [address], [place] [address] 16 Nov, 2010 [facility] [address] [id number] [address] [place] [address], [place] [address] 10 Sep, 2010 [facility] [address] [id number] [address] [place] [address], [place] [address] 31 Aug, 2010 [facility] [facility] [address] [id number] [address] [place] [address], [place] [address] 29 Aug, 2010 [facility] [address] [id number] [address] [place] [address], [place] [address] 29 Aug, 2010 [facility] [address] [id number] [address] [place] [address], [place] [address] 29 Aug, 2010 [facility] [address] [id number] [address] [place] [address], [place] [address] 27 Aug, 2010 [facility] [address] [id number] [address] [place] [address], [place] [address] 14 Aug, 2010 [facility] [address] [id number] [address] [place] [address], [place] [address] 08 Aug, 2010 [facility] [address] [id number] [address] [place] [address], [place] [address] 08 Aug, 2010 [facility] [address] [id number] [address] [place] [address], [place] [address] Aug, [facility] [address] [id number] [address] [place] [address], [place] [address] Aug, [facility] [address] [id number] [address] [place] [address], [place] [address] Aug, [facility] [address] [id number] [address] [place] [address], [place] [address] Aug, [facility] [address] [id number] [address] [place] [address], [place] [address] Jul, [facility] [address] [id number] [address] [place] [address], [place] [address] Jul, [facility] [address] [id number] [address] [place] [address], [place] [address] Jul, [facility] [address] [id number] [address] [place] [address], [place] [address] Jul, [facility] [address] [id number] [address] [place] [address], [place] [address] Jul, [facility] [address] [id number] [address] [place] [address], [place] [address] Jul, [facility] [address] [id number] [address] [place] [address], [place] [address] Jun, [facility] [address] [id number] [address] [place] [address], [place] [address] Jun, [facility] [address] [id number] [address] [place] [address], [place] [address] Jun, [facility] [address] [id number] [address] [place] [address], [place] [address] Jun, [facility] [address] [id number] [address] [place] [address], [place] [address] 16 Apr, 2010 [facility] [address] [id number] [address] [place] [address], [place] [address] Mar, [facility] [address] [id number] [address] [place] [address], [place] [address] Feb, [facility] [address] [id number] [address] [place] [address], [place] [address] January, [facility] [address] [id number] [address] [place] [address], [place] [address] 15 Dec, 2009 [facility] [address] [id number] [address] [place] [address], [place] [address] Nov, [facility] [address] [id number] [address] [place] [address], [place] [address] Aug, [facility] [address] [id number] [address] [place] [address], [place] [address] Aug, [facility] [address] [id number] [address] [place] [address] Aug, [facility] [address] [id number] [address] [place] [address] Jul, [facility] [address] [id number] [address] [place] [address] Jul, [facility] [address] [id number] [address] [place] [address] Jul, [facility] [address] [id number] [address] [place] [address] 30 Jun, 2009 [facility] [address] [id number] [address] [place] [address], [place] [address] 29 Jun, 2009 [facility] [address] [id number] [address] [place] [address] Jun, [facility] [address] [id number] [address] [place] [address] 22 Jun, 2009 [facility] [address] [id number] [address] [place] [address] Jun, [facility] [address] [facility] [id number] [address] [place] [id number] Jun, [facility] [address] [facility] [id number] [address] [place] [id number] Apr, [facility] [address] [facility] [id number] [address] [place] [address] Apr, [facility] [address] [facility] [id number] [address] [place] [id number] Feb, [facility] [address] [facility] [id number] [address] [place] [phone] January, [facility] [address] [facility] [id number] [address] [place] [id number] Dec, IMMUNIZATIONS No Known Immunizations SOCIAL HISTORY [...] tunnel release (Left) 2000 Surgical History EGD ([facility]) 2009 Surgical History colonoscopy 2009 ([facility]), 2013 [...] History inability to urinate 09/16/15 Hospitalization History [facility] health ea [facility]ly 2000's Hospitalization History hyperkalemia 10/2017 Hospitalization History fluid in lung
--- OUTSIDE RECORDS SUMMARY | 2020-03-01 17:59 | XMS REPORT ---
Author Author Michele WASHBURN Organization [facility] Address [address] [place] [address] Care Team Providers Care Button Broacher Name Role Phone NOEMI WASHBURN Unavailable PROBLEMS Type Condition ICD9-CM Code [id number] Code Onset Dates Condition S tatus SNOMED Code Problem Leukocytosis D72.829 Active 1071381 06 Problem Bipolar I disorder, most recent episode (or curr ent) mixed, moderate F31.62 Active 39520543 Problem Reactive airway disease J45.909 Active 825506066914 Problem Anxiety F41.9 Active 49499233 Problem Insomnia, unspecified type G47.00 Act sharon 068083268 Problem Essential hypertension I10 Active 78778268 Problem Morbid obesity E66.01 Active 24008 6002 Problem Skin cancer C44.90 Active 24715621 7 Problem DM neuro manif type II E11.49 Active 07325603 Problem Mild cognitive impairment G31.84 Acti ve 390251561 Problem Benign prostatic hyperplasia with lower urinary tract symptoms, unspecified morphology N40.1 Active 84816 6007 Problem Chronic pain G89.29 Active 3195219 1 Problem Diabetes E11.9 Active 80825809 Problem Retinal edema H35.81 Active 086931 6 Problem Anemia of chronic illness D63.8 Acti ve 121032453 Problem Falling R29.6 Active 182210888 Problem Pressure ulcer of other site, stage 3 L89.893 Active 077537251 Problem 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 Active 248039409 Problem Eye exam abnormal R93.8 Active 16 6590742 Problem Pure hypercholesterolemia E78.00 Acti ve 894117953 Problem Dysuria R30.0 Active 29370668 Problem Bipolar disorder, in partial remission, most rec ent episode depressed F31.75 Active 10797331 Problem Hypokalemia E87.6 Active 57935908 Problem Other iron deficiency anemia D50.8 A ctive 87411492 Problem Eustachian tube dysfunction, unspecified laterality H69.80 Active 87279962 Problem Primary osteoarthritis of right knee M17.11 Active 141109223892824 Problem Cough R05 Active 88914594 Problem Bipolar disorder F31.9 Active 137 94094 Problem Chronic diastolic (congestive) heart failure I50.3 2 Active 135856920 Problem Psychophysiological insomnia F51.04 A ctive 302118384 Problem Gastroesophageal reflux disease without esophagitis K21.9 Active 399106761 Problem Polyneuropathy associated with underlying disease G63 Active 203556408 Problem Other secondary acute gout, 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 0 Active 561133430 Problem Diabetic polyneuropathy associated with type 2 d iabetes mellitus E11.42 Active 71464554 Problem Chronic lymphocytic leukemia C91.10 A ctive 10979517 Problem Bilateral primary osteoarthritis of knee M17.0 Active 059616467 Problem Type 2 diabetes mellitus with diabetic neuropathy, uns pecified E11.40 Active 82649909 Problem USP (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 Z79.4 Active 002561749 Problem Lymphocytosis D72.820 Active 734780 09 Problem Mood disorder F39 Active 932402 05 Problem Bipolar I disorder, most recent episode depressed, moderat e F31.32 Active 022431234 ALLERGIES No Information ENCOUNTERS Encounter Location Date Diagnosis [facility] [address] [facility] [id number] [address] [place] [address] 24 Dec, 2019 [facility] [address] [facility] [id number] [address] [place] [address] 13 Dec, 2019 [facility] [address] [facility] [id number] [address] [place] [address] Dec, [facility] [address] [id number] [address] [place] [address] Dec, Gastroesophageal reflux dise ase without esophagitis K21.9 and Pure hypercholesterolemia E78.00 [facility] [address] [facility] [id number] [address] [place] [address] Dec, Mood disorder F39 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 [address] [id number] [address] [place] [address] Nov, Chronic pain G89.29 [facility] [address] [id number] [address] [place] [address] Nov, Bipolar I disorder, most rec ent episode depressed, moderate F31.32 ; Anxiety F41.9 and Mild cognitive impairment G31.84 [facility] [address] [id number] [address] [place] [address] Nov, [facility] [address] [facility] [id number] [address] [place] [address] Nov, Syncope, unspecified syncope type R55 [facility] [address] [facility] [id number] [address] [place] [address] Nov, Mood disorder F39 [facility] [address] [id number] [address] [place] [address] Oct, Chronic pain G89.29 [facility] [address] [id number] [address] [place] [address] Oct, [facility] [address] [facility] [id number] [address] [place] [address] Oct, Mood disorder F39 [facility] [address] [facility] [id number] [address] [place] [address] Oct, [facility] [address] [facility] [id number] [address] [place] [address] Oct, Bipolar disorder, in partial remission, most recent episode depressed F31.75 and Mild cognitive impairment G31.84 [facility] [address] [id number] [address] [place] [address] 04 Oct, [address] [facility] [address] [facility] [id number] [address] [place] [address] Sep, [facility] [address] [id number] [address] [place] [address] Sep, Mood disorder F39 [facility] [address] [id number] [address] [place] [address] Sep, Bipolar disorder, in partial remission, most recent episode depressed F31.75 and Mild cognitive impairment G31.84 [facility] [address] [id number] [address] [place] [address] Sep, Mood disorder F39 [facility] [address] [id number] [address] [place] [address] Sep, [facility] [address] [id number] [address] [place] [address] Sep, Mood disorder F39 [facility] [address] [id number] [address] [place] [address] Sep, [facility] [address] [id number] [address] [place] [address] Aug, Mood disorder F39 [facility] [address] [id number] [address] [place] [address] Aug, [facility] [address] [id number] [address] [place] [address] Aug, [facility] [address] [id number] [address] [place] [address] Aug, [facility] [address] [id number] [address] [place] [address] Aug, [facility] [address] [id number] [address] [place] [address] Aug, [facility] [address] [id number] [address] [place] [address] Aug, [facility] [address] [id number] [address] [place] [address] Aug, [facility] [address] [id number] [address] [place] [address] Aug, Essential hypertension I10 [facility] [address] [id number] [address] [place] [address] Aug, Bipolar disorder, in partial remission, most recent episode depressed F31.75 and Mild cognitive impairment G31.84 [facility] [address] [id number] [address] [place] [address] Aug, Mood disorder F39 [facility] [address] [id number] [address] [place] [address] Aug, [facility] [address] [id number] [address] [place] [address] Aug, Bipolar disorder, in partial remission, most recent episode depressed F31.75 and Mild cognitive impairment G31.84 [facility] [address] [id number] [address] [place] [address] Jul, Bipolar disorder, in partial remission, most recent episode depressed F31.75 and Mild cognitive impairment G31.84 [facility] [address] [id number] [address] [place] [address] Jul, Psychophysiological insomnia F51.04 [facility] [address] [id number] [address] [place] [address] Jul, [facility] [address] [id number] [address] [place] [address] Jul, [facility] [address] [id number] [address] [place] [address] Jul, [facility] [address] [id number] [address] [place] [address] Jul, [facility] [address] [id number] [address] [place] [address] Jul, [facility] [address] [id number] [address] [place] [address] Jul, [place] [address] [facility] [id number] [address] [place] [address] Jul, Bipolar disorder, in partial remission, most recent episode depressed F31.75 and Mild cognitive impairment G31.84 [place] [address] [facility] [id number] [address] [place] [address] Jul, Chronic pain G89.29 ; Diabet es E11.9 ; Essential hypertension I10 ; Ill feeling R68.89 ; Local infection of the skin and subcutaneous tissue, unspecified L08.9 and Other injury of unspecified body region, initial encounter T14.8XXA [place] [address] [facility] [id number] [address] [place] [address] Jun, Bipolar disorder, in partial remission, most recent episode depressed F31.75 and Mild cognitive impairment G31.84 [place] [address] [facility] [id number] [address] [place] [address] Jun, [place] [address] [facility] [id number] [address] [place] [address] Jun, Bipolar disorder, in partial remission, most recent episode depressed F31.75 and Mild cognitive impairment G31.84 [place] [address] [facility] [id number] [address] [place] [address] Jun, Psychophysiological insomnia F51.04 [place] [address] [facility] [id number] [address] [place] [address] Jun, Psychophysiological insomnia F51.04 ; Chronic pain G89.29 ; Bipolar I disorder, most recent episode (or current) mixed, moderate F31.62 ; 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 [address] [id number] [address] [place] [address] Jun, [facility] [address] [id number] [address] [place] [address] Jun, Bipolar disorder F31.9 [facility] [address] [id number] [address] [place] [address] May, Bipolar disorder, in partial remission, most recent episode depressed F31.75 and Mild cognitive impairment G31.84 [facility] [address] [id number] [address] [place] [address] May, [facility] [address] [id number] [address] [place] [address] Apr, Chronic pain G89.29 and Bipo lar disorder F31.9 [facility] [address] [id number] [address] [place] [address] Mar, Bipolar disorder F31.9 and C hronic pain G89.29 [facility] [address] [id number] [address] [place] [address] Feb, Bipolar disorder F31.9 [facility] [address] [id number] [address] [place] [address] Feb, Cellulitis of right upper ex tremity L03.113 and Skin abrasion T14.8XXA [facility] [address] [id number] [address] [place] [address] Feb, Bipolar disorder, in partial remission, most recent episode depressed F31.75 and Mild cognitive impairment G31.84 [facility] [address] [id number] [address] [place] [address] Feb, Chronic pain G89.29 [facility] [address] [id number] [address] [place] [address] Feb, Bipolar disorder, in partial remission, most recent episode depressed F31.75 and Mild cognitive impairment G31.84 [facility] [address] [id number] [address] [place] [address] January, Bipolar disorder, in partial remission, most recent episode depressed F31.75 and Mild cognitive impairment G31.84 [facility] [address] [id number] [address] [place] [address] January, Chronic pain G89.29 and Bipo lar disorder F31.9 [facility] [address] [id number] [address] [place] [address] January, Bipolar disorder, in partial remission, most recent episode depressed F31.75 and Mild cognitive impairment G31.84 [facility] [address] [id number] [address] [place] [address] Dec, [facility] [address] [id number] [address] [place] [address] Dec, Chronic pain G89.29 and Bipo lar disorder F31.9 [facility] [address] [id number] [address] [place] [address] Dec, Edema of both lower extremit ies R60.0 [facility] [address] [id number] [address] [place] [address] Dec, Bipolar disorder F31.9 [facility] [address] [id number] [address] [place] [address] Dec, Bipolar disorder, in partial remission, most recent episode depressed F31.75 and Mild cognitive impairment G31.84 [facility] [address] [id number] [address] [place] [address] Nov, [facility] [address] [id number] [address] [place] [address] Nov, Chronic pain G89.29 [facility] [address] [id number] [address] [place] [address] Nov, Bipolar disorder, in partial remission, most recent episode depressed F31.75 and Mild cognitive impairment G31.84 [place] [id number] [place] [address] Nov, Bipolar disorder F31.[address] [address] 04 Nov, 2018 Encounter for Medicare hilary [...] unspecified morphology N40.1 and Essential hypertension I10 [address] [address] Oct, Chronic pain G89.29 [place] [address] [address] 18 Oct, 2018 Diabetes E11.9 [place] [address] [address] Oct, Bipolar I disorder, most rec ent episode (or current) mixed, moderate F31.62 and Mild cognitive impairment G31.84 [place] [address] [place] [id number] [address] [place] [address] Oct, Bipolar I disorder, most rec ent episode (or current) mixed, moderate F31.62 and Mild cognitive impairment G31.84 [place] [address] [place] [id number] [address] [place] [address] Sep, Bipolar I disorder, most rec ent episode (or current) mixed, moderate F31.62 and Mild cognitive impairment G31.84 [place] [address] [place] [id number] [address] [place] [address] Sep, [place] [address] [address] Sep, Diabetes E11.9 ; Hypoxia R09 .02 ; Hyperglycemia R73.9 ; Therapeutic drug monitoring Z51.81 ; BMI 50.0-59.9, adult Z68.43 [address]44[address]90 [facility] [address] [id number] [address] [place] [address] Sep, Chronic pain G89.29 [facility] [address] [id number] [address] [place] [address] Sep, Bipolar I disorder, most rec ent episode (or current) mixed, moderate F31.62 [facility] [address] [id number] [address] [place] [address] Sep, [facility] [address] [facility] [id number] [address] [place] [address] Sep, [facility] [address] [facility] [id number] [address] [place] [address] Aug, Chronic pain G89.29 [facility] [address] [id number] [address] [place] [address] Aug, Bipolar I disorder, most rec ent episode (or current) mixed, moderate F31.62 [facility] [address] [facility] [id number] [address] [place] [phone] Aug, Bipolar I disorder, most rec ent episode (or current) mixed, moderate F31.62 and Mild cognitive impairment G31.84 [facility] [address] [facility] [id number] [address] [place] [address] Jul, [facility] [address] [id number] [address] [place] [address] Jul, Chronic pain G89.29 [facility] [address] [facility] [id number] [address] [place] [address] Jul, Bipolar I disorder, most rec ent episode (or current) mixed, moderate F31.62 and Mild cognitive impairment G31.84 [facility] [address] [facility] [id number] [address] [place] [address] Jul, Bipolar I disorder, most rec ent episode (or current) mixed, moderate F31.62 and MCI (mild cognitive impairment) G31.84 [facility] [address] [facility] [id number] [address] [place] [address] Jul, [facility] [address] [facility] [id number] [address] [place] [address] Jul, [facility] [address] [facility] [id number] [address] [place] [address] Jul, Bipolar I disorder, most rec ent episode (or current) mixed, moderate F31.62 [facility] [address] [facility] [id number] [address] [place] [address] Jul, Chronic pain G89.29 [facility] [address] [facility] [id number] [address] [place] [address] Jun, Bipolar I disorder, most rec ent episode (or current) mixed, moderate F31.62 [facility] [address] [facility] [id number] [address] [place] [address] Jun, Pre-procedure lab exam Z01.[address] [facility] [address] [place] [id number] [address] [place] [address] Jun, [facility] [address] [facility] [id number] [place] [id number] Jun, [facility] [address] [place] [id number] [address] [place] [address] Jun, [facility] [address] [place] [id number] [address] [place] [address] Jun, Forgetfulness R68.89 ; Pre-s yncope R55 ; Localized edema R60.0 ; Other iron deficiency anemia D50.8 and BMI 50.0-59.9, adult Z68.43 [facility] [address] [facility] [id number] [address] [place] [address] Jun, Chronic pain G89.29 [facility] [address] [facility] [id number] [address] [place] [address] Jun, Chronic pain G89.29 [facility] [address] [facility] [id number] [address] [place] [address] Jun, Bipolar I disorder, most rec ent episode (or current) mixed, moderate F31.62 [place] [address] [facility] [id number] [address] [place] [address] May, Chronic pain G89.29 [facility] [address] [facility] [id number] [address] [place] [address] Apr, [place] [address] [facility] [id number] [address] [place] [id number] Apr, Chronic pain G89.29 [place] [address] [address] [place] [id number] [address] [place] [id number] Apr, Primary osteoarthritis of ri ght knee M17.11 [place] [address] [address] [facility] [id number] [address] [place] [id number] Mar, [place] [address] [address] [place] [id number] [address] [place] [id number] Mar, BMI 50.0-59.9, adult Z68.43 and Bipolar disorder, in partial remission, most recent episode depressed F31.75 [place] [address] [address] [place] [id number] [address] [place] [id number] Mar, Diabetes E11.9 ; Pure hyperc holesterolemia E78.00 ; Essential hypertension I10 ; Nausea with vomiting, unspecified R11.2 and Headache, unspecified headache type R51 [place] [address] [address] [facility] [id number] [address] [place] [phone] Mar, Bipolar I disorder, most rec ent episode (or current) mixed, moderate F31.62 [place] [id number] [place] [id number] [address] [place] [id number] Mar, Bipolar I disorder, most rec ent episode (or current) mixed, moderate F31.62 [facility] [address] [id number] [address] [place] [phone] Mar, Chronic pain G89.29 [facility] [address] [id number] [address] [place] [id number] Mar, Bipolar I disorder, most rec ent episode (or current) mixed, moderate F31.62 [facility] [address] [facility] [id number] [address] [place] [id number] Feb, Bipolar I disorder, most rec ent episode (or current) mixed, moderate F31.62 [facility] [address] [facility] [id number] [address] [place] [id number] Feb, Chronic pain G89.29 [facility] [address] [facility] [id number] [address] [place] [phone] Feb, Decubitus ulcer of right josselin t, stage 3 L89.893 and BMI 50.0-59.9, adult Z68.43 [facility] [address] [facility] [id number] [address] [place] [id number] Feb, Bipolar I disorder, most rec ent episode (or current) mixed, moderate F31.62 [facility] [address] [facility] [id number] [address] [place] [address] Feb, [facility] [address] [facility] [id number] [address] [place] [address] January, [facility] [address] [id number] [address] [place] [address] January, Chronic pain G89.29 [facility] [address] [facility] [id number] [address] [place] [address] January, Bipolar I disorder, most rec ent episode (or current) mixed, moderate F31.62 [facility] [address] [facility] [id number] [address] [place] [address] January, Bipolar I disorder, most rec ent episode (or current) mixed, moderate F31.62 [facility] [address] [facility] [id number] [address] [place] [address] Dec, Bipolar I disorder, most rec ent episode (or current) mixed, moderate F31.62 and BMI 50.0-59.9, adult Z68.43 [facility] [address] [facility] [id number] [address] [place] [address] Dec, Bipolar I disorder, most rec ent episode (or current) mixed, moderate F31.62 [place] [address] [facility] [id number] [address] [place] [address] Dec, Chronic pain G89.29 [place] [address] [place] [id number] [address] [place] [address] Dec, DM neuro manif type II E11.4 9 ; Right flank pain R10.9 ; intermediate frame tender 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 Z79.891 ; Encounter for medication monitoring Z51.81 and BMI 50.0-59.9, adult Z68.43 [place] [address] [facility] [id number] [address] [place] [address] Dec, Bipolar I disorder, most rec ent episode (or current) mixed, moderate F31.62 [place] [address] [facility] [id number] [address] [place] [address] Nov, Bipolar I disorder, most rec ent episode (or current) mixed, moderate F31.62 [place] [address] [facility] [id number] [address] [place] [address] Nov, Chronic pain G89.29 [place] [address] [facility] [id number] [address] [place] [address] Nov, Bipolar I disorder, most rec ent episode (or current) mixed, moderate F31.62 [place] [address] [facility] [id number] [address] [place] [address] Nov, Hypokalemia E87.6 [place] [address] [facility] [id number] [address] [place] [address] Nov, Bipolar I disorder, most rec ent episode (or current) mixed, moderate F31.62 [place] [address] [address] Oct, Chronic pain G89.29 [place] [address] [address] Oct, BMI 50.0-59.9, adult Z68.43 and Bipolar I disorder, most recent episode (or current) mixed, moderate F31.62 [place] [address] [address] Oct, Bipolar I disorder, most rec ent episode (or current) mixed, moderate F31.62 [place] [address] [address] Oct, [place] [address] [address] Oct, Hypokalemia E87.6 [place] [address] [address] Oct, DM neuro manif type II E11.4 9 [place] [address] [address] Oct, Bipolar I disorder, most rec ent episode (or current) mixed, moderate F31.62 [place] [address] [address] Oct, Bipolar I disorder, most rec ent episode (or current) mixed, moderate F31.62 [place] [address] [address] 14 Oct, 2017 Hyperkalemia E87.5 ; Falling R29.6 ; BMI 50.0-59.9, adult Z68.43 and Acute left ankle pain M25.572 [place] [address] [address] Oct, DM neuro manif type II E11.4 9 [place] [address] [address] Oct, [place] [address] [address] Sep, Chronic pain G89.29 [place] [address] [address] Sep, [place] [address] [address] Sep, Bilateral primary osteoarthr itis of knee M17.0 [place] [address] [address] Sep, Generalized edema R60.1 [place] [address] [address] Sep, Bipolar I disorder, most rec ent episode (or current) mixed, moderate F31.62 [place] [address] [address] Sep, Hypoxia R09.02 ; Other hyper volemia E87.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 [address] [facility] [id number] [address] [place] [address] Aug, [facility] [address] [facility] [id number] [address] [place] [address] Aug, [facility] [address] [place] [id number] [address] [place] [address] Aug, Bipolar I disorder, most rec ent episode (or current) mixed, moderate F31.62 [facility] [address] [facility] [id number] [address] [place] [address] Aug, Bipolar I disorder, most rec ent episode (or current) mixed, moderate F31.62 [place] [address] [place] [id number] [address] [place] [address] Aug, Chronic pain G89.29 [facility] [address] [place] [id number] [address] [place] [address] Jul, Bipolar I disorder, most rec ent episode (or current) mixed, moderate F31.62 [facility] [address] [place] [id number] [address] [place] [address] Jul, Bipolar I disorder, most rec ent episode (or current) mixed, moderate F31.62 and BMI 60.0-69.9, adult Z68.44 [facility] [address] [place] [id number] [address] [place] [address] Jul, Bipolar I disorder, most rec ent episode (or current) mixed, moderate F31.62 [facility] [address] [place] [id number] [address] [place] [address] Jul, Chronic pain G89.29 [facility] [address] [place] [id number] [address] [place] [address] Jul, Bipolar I disorder, most rec ent episode (or current) mixed, moderate F31.62 [facility] [address] [place] [id number] [address] [place] [address] 18 Jun, 2017 Polyneuropathy associated wi th underlying disease G63 and Diabetes E11.9 [facility] [address] [facility] [id number] [address] [place] [address] 16 Jun, 2017 Bipolar I disorder, most rec ent episode (or current) mixed, moderate F31.62 [facility] [address] [place] [id number] [address] [place] [address] 09 Jun, [address] [facility] [address] [place] [id number] [address] [place] [address] May, Bipolar I disorder, most rec ent episode (or current) mixed, moderate F31.62 [place] [address] [place] [id number] [address] [place] [address] May, Bipolar I disorder, most rec ent episode (or current) mixed, moderate F31.62 [place] [address] [place] [id number] [address] [place] [address] May, Diabetic polyneuropathy asso ciated with type 2 diabetes mellitus E11.42 [place] [address] [place] [id number] [address] [place] [address] 18 May, 2017 Bipolar I disorder, most rec ent episode (or current) mixed, moderate F31.62 [place] [address] [place] [id number] [address] [place] [address] May, Bipolar I disorder, most rec ent episode (or current) mixed, moderate F31.62 [place] [address] [facility] [id number] [address] [place] [address] May, Chronic pain G89.29 [facility] [address] [place] [id number] [address] [place] [address] Apr, Bipolar I disorder, most rec ent episode (or current) mixed, moderate F31.62 [place] [address] [place] [id number] [address] [place] [address] Apr, [place] [address] [id number] [address] [place] [address] Apr, Chronic pain G89.29 and DM n euro manif type II E11.49 [facility] [address] [id number] [address] [place] [address] Apr, [facility] [address] [id number] [address] [place] [address] Apr, Bipolar I disorder, most rec ent episode (or current) mixed, moderate F31.62 [facility] [address] [id number] [address] [place] [address] Apr, Chronic pain G89.29 [facility] [address] [id number] [address] [place] [address] Apr, Iliotibial band syndrome, le ft M76.32 [facility] [address] [id number] [address] [place] [address] Apr, Bipolar I disorder, most rec ent episode (or current) mixed, moderate F31.62 [facility] [address] [id number] [address] [place] [address] Mar, Bipolar I disorder, most rec ent episode (or current) mixed, moderate F31.62 [facility] [address] [id number] [address] [place] [address] Mar, Bipolar I disorder, most rec ent episode (or current) mixed, moderate F31.62 [facility] [address] [id number] [address] [place] [address] Mar, [facility] [address] [id number] [address] [place] [address] Mar, Bipolar I disorder, most rec ent episode (or current) mixed, moderate F31.62 [facility] [address] [id number] [address] [place] [address] Mar, Chronic pain G89.29 [facility] [address] [id number] [address] [place] [address] Mar, Bipolar I disorder, most rec ent episode (or current) mixed, moderate F31.62 [facility] [address] [facility] [id number] [address] [place] [address] Mar, Bipolar I disorder, most rec ent episode (or current) mixed, moderate F31.62 [facility] [address] [facility] [id number] [address] [place] [address] Mar, Acute pain of left knee M25. 562 ; Left hip pain M25.552 ; Generalized edema R60.1 and Tongue swelling R22.0 [facility] [address] [id number] [address] [place] [address] Mar, [facility] [address] [facility] [id number] [address] [place] [address] Feb, Chronic pain G89.29 [facility] [address] [facility] [id number] [address] [place] [address] Feb, Diabetes E11.9 [facility] [address] [id number] [address] [place] [address] January, Chronic pain G89.29 [facility] [address] [facility] [id number] [address] [place] [address] January, [facility] [address] [facility] [id number] [address] [place] [address] January, Bipolar I disorder, most rec ent episode (or current) mixed, moderate F31.62 [facility] [address] [id number] [address] [place] [address] Dec, Bipolar I disorder, most rec ent episode (or current) mixed, moderate F31.62 [facility] [address] [facility] [id number] [address] [place] [address] Dec, Chronic pain G89.29 [facility] [address] [facility] [id number] [address] [place] [address] Dec, Bipolar I disorder, most rec ent episode (or current) mixed, moderate F31.62 [facility] [address] [id number] [address] [place] [address] Dec, Diabetes E11.9 ; Essential h ypertension I10 ; Chronic pain G89.29 and Morbid obesity E66.01 [facility] [address] [id number] [address] [place] [address] Dec, [facility] [address] [id number] [address] [place] [address] Dec, Bipolar I disorder, most rec ent episode (or current) mixed, moderate F31.62 [facility] [address] [facility] [id number] [address] [place] [address] Dec, Bipolar I disorder, most rec ent episode (or current) mixed, moderate F31.62 [facility] [address] [facility] [id number] [address] [place] [address] Nov, Chronic pain G89.29 [facility] [address] [id number] [address] [place] [address] Nov, Bipolar I disorder, most rec ent episode (or current) mixed, moderate F31.62 [facility] [address] [id number] [address] [place] [address] Nov, [facility] [address] [id number] [address] [place] [address] Nov, Bipolar I disorder, most rec ent episode (or current) mixed, moderate F31.62 [facility] [address] [id number] [address] [place] [address] Nov, Bipolar I disorder, most rec ent episode (or current) mixed, moderate F31.62 [facility] [address] [facility] [id number] [address] [place] [address] Nov, [facility] [address] [facility] [id number] [address] [place] [address] Nov, [facility] [address] [facility] [id number] [address] [place] [address] Nov, [facility] [address] [facility] [id number] [address] [place] [address] Oct, Chronic pain G89.29 [facility] [address] [facility] [id number] [address] [place] [address] Oct, Bipolar I disorder, most rec ent episode (or current) mixed, moderate F31.62 [facility] [address] [facility] [id number] [address] [place] [address] Oct, 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 [address] [facility] [id number] [address] [place] [address] Oct, [facility] [address] [facility] [id number] [address] [place] [address] Oct, Diabetes E11.9 [facility] [address] [facility] [id number] [address] [place] [address] Oct, Bipolar I disorder, most rec ent episode (or current) mixed, moderate F31.62 [facility] [address] [facility] [id number] [address] [place] [address] Sep, Chronic pain G89.29 [facility] [address] [facility] [id number] [address] [place] [address] Sep, Chronic pain G89.29 [facility] [address] [facility] [id number] [address] [place] [address] Aug, Chronic pain G89.29 [facility] [address] [facility] [id number] [address] [place] [address] Jul, [facility] [address] [facility] [id number] [address] [place] [address] Jul, Diabetes E11.9 [facility] [address] [facility] [id number] [address] [place] [address] Jul, Chronic pain G89.29 [facility] [address] [facility] [id number] [address] [place] [address] Jul, Bipolar I disorder, most rec ent episode (or current) mixed, moderate F31.62 [facility] [address] [place] [id number] [address] [place] [address] Jun, Bipolar I disorder, most rec ent episode (or current) mixed, moderate F31.62 [place] [address] [place] [id number] [address] [place] [address] Jun, [facility] [address] [place] [id number] [address] [place] [address] Jun, Bipolar I disorder, most rec ent episode (or current) mixed, moderate F31.62 [facility] [address] [place] [id number] [address] [place] [address] May, Insomnia, unspecified type G 47.00 [place] [address] [place] [id number] [address] [place] [address] May, Bipolar I disorder, most rec ent episode (or current) mixed, moderate F31.62 [place] [address] [place] [id number] [address] [place] [address] 14 May, 2016 [facility] [address] [facility] [id number] [address] [place] [address] 08 May, 2016 Bipolar I disorder, most rec ent episode (or current) mixed, moderate F31.62 [facility] [address] [facility] [id number] [address] [place] [address] 06 May, 2016 Diabetes E11.9 and Essential hypertension I10 [facility] [address] [facility] [id number] [address] [place] [address] Apr, Chronic pain G89.29 [facility] [address] [facility] [id number] [address] [place] [address] Apr, Bipolar I disorder, most rec ent episode (or current) mixed, moderate F31.62 [facility] [address] [facility] [id number] [address] [place] [address] Apr, [facility] [address] [facility] [id number] [address] [place] [address] Apr, [place] [address] [place] [id number] [address] [place] [address] Mar, Chronic pain G89.29 ; Headac he, unspecified headache type R51 ; Neuropathy G62.9 ; Pain of right hip joint M25.551 and Essential hypertension I10 [place] [address] [facility] [id number] [address] [place] [address] Mar, Chronic pain G89.29 [place] [address] [place] [id number] [address] [place] [address] Mar, Bipolar I disorder, most rec ent episode (or current) mixed, moderate F31.62 [place] [address] [place] [id number] [address] [place] [address] Feb, Bipolar I disorder, most rec ent episode (or current) mixed, moderate F31.62 and Insomnia, unspecified type G47.00 [place] [address] [facility] [id number] [address] [place] [address] Feb, Chronic pain G89.29 [place] [address] [facility] [id number] [address] [place] [address] Feb, Bipolar I disorder, most rec ent episode (or current) mixed, moderate F31.62 [place] [address] [place] [id number] [address] [place] [address] January, Bipolar I disorder, most rec ent episode (or current) mixed, moderate F31.62 [place] [address] [place] [id number] [address] [place] [address] January, Chronic pain G89.29 [facility] [address] [facility] [id number] [address] [place] [address] January, Chronic pain G89.29 and Esse ntial hypertension I10 [facility] [address] [facility] [id number] [address] [place] [id number] January, Bipolar I disorder, most rec ent episode (or current) mixed, moderate F31.62 [facility] [address] [facility] [id number] [address] [place] [phone] Dec, [facility] [address] [facility] [id number] [address] [place] [id number] Dec, [facility] [address] [place] [id number] [address] [place] [id number] Dec, [facility] [address] [place] [id number] [address] [place] [id number] Dec, [facility] [address] [place] [id number] [address] [place] [id number] Nov, Reactive airway disease J45. 909 [facility] [address] [place] [id number] [place] [phone] Nov, [facility] [address] [place] [id number] [address] [place] [phone] Nov, [facility] [address] [place] [id number] [address] [place] [phone] Nov, [facility] [address] [facility] [id number] [address] [place] [id number] Nov, [facility] [address] [id number] Nov, Onychomycosis B35.1 ; Hammer toe M20.40 ; [place] or callus L84 and DM neuro manif type II E11.49 [facility] [address] [facility] [id number] [address] [place] [id number] Nov, Chronic pain G89.29 ; Leukoc ytosis D72.829 and Diabetes E11.9 [place] [address] [address] Nov, [place] [address] [address] Oct, Bronchitis J40 [place] [address] [address] Oct, [place] [address] [address] Oct, [place] [address] [address] Oct, Mastoiditis, unspecified lat erality H70.90 and Type 2 diabetes mellitus with complication E11.8 [place] [address] [address] Sep, [place] [address] [address] Sep, Dysuria R30.0 ; Cough R05 ; Benign prostatic hyperplasia with lower urinary tract symptoms, unspecified morphology N40.1 ; Hypokalemia E87.6 and Eustachian tube dysfunction, unspecified laterality H69.80 [place] [address] [address] Sep, Moderate mixed bipolar I dis order F31.62 [place] [address] [address] Sep, Hypokalemia E87.6 [place] [address] [address] Sep, [place] [address] [address] Sep, Upper respiratory tract infe ction, unspecified type J06.9 [place] [address] [place] [id number] [place] [phone] Aug, [facility] [address] [id number] [address] [place] [id number] Aug, Dysuria R30.0 [facility] [address] [id number] [address] [place] [phone] Aug, [facility] [address] [id number] [place] [id number] Jul, [facility] [address] [id number] [address] [place] [id number] Jul, [facility] [address] [id number] [address] [place] [id number] Jul, [facility] [address] [id number] [address] [place] [id number] Jul, [facility] [address] [id number] [address] [place] [phone] Jun, [facility] [address] [id number] [address] [place] [id number] Jun, [facility] [address] [id number] [address] [place] [id number] Jun, [facility] [address] [id number] [address] [place] [id number] May, [facility] [address] [id number] [address] [place] [id number] May, Bipolar I disorder, most rec ent episode (or current) mixed, moderate 296.62 [facility] [address] [id number] [address] [place] [id number] [address], [address] [facility] [address] [id number] [address] [place] [id number] 02 May, 2015 Bipolar I disorder, most rec ent episode (or current) mixed, moderate 296.62 and Major depressive disorder, recurrent episode, severe, specified as with psychotic behavior 296.34 [facility] [address] [id number] [address] [place] [phone] May, Bipolar I disorder, most rec ent episode (or current) mixed, moderate 296.62 [facility] [address] [facility] [id number] [address] [place] [phone] May, [facility] [address] [facility] [id number] [address] [place] [phone] Apr, [facility] [address] [id number] [address] [place] [id number] Apr, [facility] [address] [facility] [id number] [address] [place] [id number] Apr, Unspecified disorder of kidn ey and ureter 593.9 and Diabetes mellitus type [address], [address] [facility] [address] [id number] [address] [place] [phone] Apr, [facility] [address] [id number] [address] [place] [id number] Apr, [facility] [address] [facility] [id number] [address] [place] [phone] Apr, [facility] [address] [id number] [address] [place] [phone] Apr, [facility] [address] [facility] [id number] [address] [place] [id number] Apr, Diabetes mellitus type II, u ncontrolled 250.02 [facility] [address] [facility] [id number] [address] [place] [phone] Apr, [facility] [address] [facility] [id number] [address] [place] [phone] Mar, [facility] [address] [facility] [id number] [address] [place] [address] Mar, [facility] [address] [facility] [id number] [address] [place] [phone] Mar, [facility] [address] [id number] [address] [place] [phone] Mar, Major depressive disorder, r ecurrent episode, severe, specified as with psychotic behavior 296.34 and Bipolar I disorder, most recent episode (or current) mixed, moderate 296.62 [facility] [address] [id number] [address] [place] [address] Mar, Diabetes 250.00 ; Anuria 788 .5 ; Nausea and vomiting 787.[address] [facility] [address] [id number] [address] [place] [address] Mar, Diabetes 250.00 [facility] [address] [id number] Mar, [facility] [address] [address] Mar, Diabetes 250.00 [facility] [address] [address] Mar, [facility] [address] [id number] [address] [place] [address] Mar, [facility] [address] [id number] [address] [place] [address] Mar, [facility] [address] [id number] [address] [place] [address] Mar, [facility] [address] [id number] [address] [place] [address] Mar, Bipolar I disorder, most rec ent episode (or current) mixed, moderate 296.62 and Major depressive disorder, recurrent episode, severe, specified as with psychotic behavior 296.34 [facility] [address] [id number] [address] [place] [address] Mar, Magnesium deficiency 275.2 ; Hypokalemia 276.8 ; Nausea & vomiting 787.01 and Diabetes mellitus type [address], [address] [facility] [id number] [address] Feb, [facility] [address] [address] Feb, Bipolar I disorder, most rec ent episode (or current) mixed, moderate 296.62 [facility] [address] [id number] Feb, Nausea and vomiting 787.01 ; Left elbow pain 719.42 ; Anuria 788.[address] [facility] [address] [address] Feb, [facility] [address] [address] Feb, Hypopotassemia 276.8 and Hyp okalemia 276.[address] [place] [address] [address] Feb, Hypopotassemia 276.8 and Hyp okalemia 276.[address] [place] [address] [address] Feb, Seborrheic keratoses 702.19 [facility] [address] [address] Feb, Hypopotassemia 276.8 and Low magnesium levels 275.2 [facility] [address] [address] January, [facility] [address] [address] January, [facility] [address] [address] January, [facility] [address] [address] January, Scalp lesion 709.9 [facility] [address] [address] January, [facility] [address] [id number] [address] [place] [address] Dec, Tear of medial cartilage or meniscus of knee, current 836.0 and 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 [facility] [address] [id number] [address] [place] [address], [place] [id number] Dec, [facility] [address] [id number] [address] [place] [address] Dec, [facility] [address] [id number] [address] [place] [address] Dec, Squamous cell carcinoma, 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 [facility] [address] [id number] [address] [place] [id number] 14 Dec, 2014 [facility] [address] [id number] [address] [place] [phone] Dec, [facility] [address] [id number] [address] [place] [address] Nov, [facility] [address] [id number] [address] [place] [address] Nov, [facility] [address] [id number] [address] [place] [address] Nov, [facility] [address] [id number] [address] [place] [address] Nov, [facility] [address] [id number] [address] [place] [address] Nov, [facility] [address] [id number] [address] [place] [address] Nov, [facility] [address] [id number] [address] [place] [address] Nov, [facility] [address] [id number] [address] [place] [address] Nov, [facility] [address] [id number] [address] [place] [address], [place] [id number] Nov, 2014 [facility] [place] [facility] [address] [id number] [address] [place] [address], [place] [id number] Nov, [facility] [place] [facility] [address] [id number] [address] [place] [address], [place] [id number] Nov, 2014 [facility] [place] [facility] [address] [id number] [address] [place] [address], [place] [id number] Nov, 2014 [facility] [place] [facility] [address] [id number] [address] [place] [address], [place] [id number] Oct, 2014 [facility] [place] [facility] [address] [id number] [address] [place] [address], [place] [id number] Oct, 2014 [facility] [place] [facility] [address] [id number] [address] [place] [address], [place] [id number] Oct, 2014 [facility] [place] [facility] [address] [id number] [address] [place] [address], [place] [id number] Oct, 2014 [facility] [place] [facility] [address] [id number] [address] [place] [address], [place] [id number] Oct, 2014 [facility] [place] [facility] [address] [id number] [address] [place] [address], [place] [id number] Oct, 2014 [facility] [place] [facility] [address] [id number] [address] [place] [address], [place] [id number] Oct, 2014 [facility] [place] [facility] [address] [id number] [address] [place] [address], [place] [id number] Oct, [facility] [place] [facility] [address] [id number] [address] [place] [address], [place] [id number] Oct, [facility] [place] [facility] [address] [id number] [address] [place] [address], [place] [id number] Sep, [facility] [place] [facility] [address] [id number] [address] [place] [address], [place] [id number] Sep, [facility] [place] [facility] [address] [id number] [address] [place] [address] Sep, [facility] [address] [id number] [address] [place] [address], [place] [id number] Sep, [facility] [address] [id number] [address] [place] [address], [place] [id number] Sep, [facility] [address] [id number] [address] [place] [address], [place] [id number] Sep, [facility] [address] [id number] [address] [place] [address], [place] [id number] Sep, [facility] [address] [id number] [address] [place] [address], [place] [id number] Sep, [facility] [address] [id number] [address] [place] [address], [place] [id number] Sep, [facility] [address] [id number] [address] [place] [address], [place] [id number] Sep, [facility] [address] [id number] [address] [place] [address], [place] [id number] Sep, [facility] [address] [id number] [address] [place] [address], [place] [id number] Sep, [facility] [address] [id number] [address] [place] [address], [place] [id number] Sep, [facility] [address] [id number] [address] [place] [address], [place] [id number] Sep, [facility] [address] [id number] [address] [place] [address], [place] [id number] Sep, [facility] [address] [id number] [address] [place] [address], [place] [id number] Sep, [facility] [address] [id number] [address] [place] [address], [place] [id number] Aug, [facility] [address] [id number] [address] [place] [address], [place] [id number] Aug, [facility] [address] [id number] [facility] [id number] Aug, [facility] [address] [id number] [facility] [id number] Aug, [facility] [address] [id number] [facility] [place] [id number] Aug, [facility] [address] [id number] [facility] [place] [id number] Aug, [facility] [address] [id number] [facility] [id number] Aug, [facility] [address] [id number] [address] [place] [address], [place] [id number] Aug, [facility] [address] [id number] [address] [place] [address], [place] [id number] Aug, [facility] [address] [id number] [address] [place] [address], [place] [id number] Aug, [facility] [address] [id number] [address] [place] [address], [place] [id number] Aug, [facility] [address] [place] [id number] Aug, [facility] [address] [id number] [address] [place] [address], [place] [id number] Aug, [facility] [address] [id number] [address] [place] [address], [place] [id number] Aug, [facility] [address] [id number] [address] [place] [address], [place] [id number] Aug, [facility] [address] [id number] [address] [place] [address], [place] [id number] Aug, [facility] [address] [id number] [facility] [place] [id number] Aug, [facility] [address] [id number] [facility] [place] [id number] Aug, [facility] [place] [facility] [address] [id number] [address] [place] [address], [place] [id number] 08 Aug, 2014 [facility] [address] [id number] [address] [place] [address], [place] [id number] Aug, [facility] [place] [facility] [address] [id number] [address] [place] [address], [place] [id number] Aug, [facility] [place] [facility] [address] [id number] [address] [place] [address], [place] [id number] Aug, [facility] [place] [facility] [address] [id number] [address] [place] [address], [place] [id number] Aug, [facility] [place] [facility] [address] [id number] [address] [place] [address], [place] [id number] Aug, [facility] [address] [id number] [address] [place] [address], [place] [id number] Aug, [facility] [place] [facility] [address] [id number] [address] [place] [address], [place] [id number] Aug, [facility] [address] [id number] [address] [place] [address], [place] [id number] Aug, [facility] [place] [facility] [address] [id number] [address] [place] [address], [place] [id number] Aug, [facility] [address] [id number] [address] [place] [address], [place] [id number] Aug, [facility] [place] [facility] [address] [id number] [address] [place] [address], [place] [id number] Aug, [facility] [place] [facility] [address] [id number] [address] [place] [address], [place] [id number] Jul, [facility] [place] [facility] [address] [id number] [address] [place] [address], [place] [id number] Jul, [facility] [place] [facility] [address] [id number] [address] [place] [address], [place] [id number] Jul, [facility] [place] [facility] [address] [id number] [address] [place] [address], [place] [id number] Jul, [facility] [place] [facility] [address] [id number] [address] [place] [address], [place] [id number] Jul, [facility] [place] [facility] [address] [id number] [address] [place] [address], [place] [id number] Jul, [facility] [place] [facility] [address] [id number] [address] [place] [address], [place] [id number] Jul, [facility] [place] [facility] [address] [id number] [address] [place] [address], [place] [id number] Jul, [facility] [place] [facility] [address] [id number] [address] [place] [address], [place] [id number] Jul, [facility] [place] [facility] [address] [id number] [address] [place] [address], [place] [id number] Jul, [facility] [place] [facility] [address] [id number] [address] [place] [address], [place] [id number] Jun, [facility] [place] [facility] [address] [id number] [address] [place] [id number] Jun, [facility] [place] [facility] [address] [id number] [address] [place] [address], [place] [id number] Jun, [facility] [place] [facility] [address] [id number] [address] [place] [id number] Jun, [facility] [place] [facility] [address] [id number] [address] [place] [id number] Jun, [facility] [place] [facility] [address] [id number] [address] [place] [id number] Jun, [facility] [place] [facility] [address] [id number] [address] [place] [address], [place] [id number] Jun, [facility] [place] [facility] [address] [id number] [address] [place] [id number] Jun, [facility] [place] [facility] [address] [id number] [address] [place] [id number] Jun, [facility] [place] [facility] [address] [id number] [address] [place] [address], [place] [id number] 01 Jun, 2013 [facility] [address] [id number] [address] [place] [address], [place] [id number] 29 Sep, 2013 [facility] [address] [id number] [address] [place] [address], [place] [id number] 29 Sep, 2013 [facility] [address] [id number] [address] [place] [address], [place] [id number] 26 Sep, 2013 [facility] [address] [id number] [address] [place] [address], [place] [id number] 26 Sep, 2013 [facility] [address] [id number] [address] [place] [address], [place] [id number] 17 Sep, 2013 [facility] [address] [id number] [address] [place] [address], [place] [id number] 17 Sep, 2013 [facility] [address] [id number] [address] [place] [address], [place] [id number] 15 May, 2013 [facility] [address] [id number] [address] [place] [address], [place] [id number] 15 Sep, 2013 [facility] [address] [id number] [address] [place] [address], [place] [id number] 15 Sep, 2013 [facility] [address] [id number] [address] [place] [address], [place] [id number] 15 Sep, 2013 [facility] [place] [facility] [address] [id number] [address] [place] [address], [place] [id number] 10 Sep, 2013 [facility] [address] [id number] [address] [place] [address], [place] [id number] 10 Sep, 2013 [facility] [address] [id number] [address] [place] [address], [place] [id number] 09 Sep, 2013 [facility] [address] [id number] [address] [place] [address], [place] [id number] 09 Sep, 2013 [facility] [address] [id number] [address] [place] [address], [place] [id number] May, [facility] [address] [id number] [address] [place] [address], [place] [id number] May, [facility] [address] [id number] [address] [place] [address], [place] [id number] Apr, [facility] [address] [id number] [address] [place] [address], [place] [id number] Apr, [facility] [address] [id number] [address] [place] [address], [place] [id number] Apr, [facility] [address] [id number] [address] [place] [address], [place] [id number] Apr, [facility] [address] [id number] [address] [place] [address], [place] [id number] Apr, [facility] [address] [id number] [address] [place] [address], [place] [id number] Apr, [facility] [address] [id number] [address] [place] [address], [place] [id number] Apr, [facility] [address] [id number] [address] [place] [address], [place] [id number] Apr, [facility] [address] [id number] [address] [place] [address], [place] [id number] Apr, [facility] [address] [id number] [address] [place] [address], [place] [id number] Apr, [facility] [address] [id number] [address] [place] [address], [place] [id number] Apr, [facility] [address] [id number] [address] [place] [address], [place] [id number] Apr, [facility] [address] [id number] [address] [place] [address], [place] [id number] Apr, [facility] [address] [id number] [address] [place] [address], [place] [id number] Apr, [facility] [address] [id number] [address] [place] [address], [place] [id number] Apr, [facility] [address] [id number] [facility] [id number] Mar, [facility] [address] [id number] [address] [place] [address], [place] [id number] Mar, [facility] [address] [id number] [address] [place] [address], [place] [id number] Mar, [facility] [address] [id number] [address] [place] [address], [place] [id number] Mar, [facility] [address] [id number] [address] [place] [address], [place] [id number] Mar, [facility] [address] [id number] [address] [place] [address], [place] [id number] Mar, [facility] [address] [id number] [address] [place] [address], [place] [id number] Mar, [facility] [address] [id number] [address] [place] [address], [place] [id number] Mar, [facility] [address] [id number] [address] [place] [address], [place] [id number] Mar, [facility] [address] [id number] [address] [place] [address], [place] [id number] Mar, [facility] [address] [id number] [address] [place] [address], [place] [id number] Mar, [facility] [address] [id number] [address] [place] [address], [place] [id number] Mar, [facility] [address] [id number] [address] [place] [address], [place] [id number] Mar, 2013 [facility] [address] [id number] [address] [place] [address], [place] [id number] Mar, [facility] [address] [id number] [address] [place] [address], [place] [id number] Mar, 2013 [facility] [address] [id number] [facility] [place] [id number] Mar, [facility] [address] [id number] [facility] [id number] Mar, [facility] [address] [id number] [facility] [id number] Mar, [facility] [address] [id number] [facility] [place] [id number] Feb, [facility] [address] [id number] [address] [place] [address], [place] [id number] Feb, [facility] [address] [id number] [address] [place] [address], [place] [id number] Feb, [facility] [address] [id number] [address] [place] [address], [place] [id number] Feb, [facility] [address] [id number] [address] [place] [address], [place] [id number] Feb, [facility] [address] [id number] [address] [place] [address], [place] [id number] Feb, [facility] [address] [id number] [address] [place] [address], [place] [id number] Feb, [facility] [address] [id number] [address] [place] [address], [place] [id number] Feb, [facility] [address] [id number] [address] [place] [address], [place] [id number] Feb, [facility] [address] [id number] [address] [place] [address], [place] [id number] Feb, [facility] [address] [id number] [address] [place] [address], [place] [id number] Feb, [facility] [address] [id number] [address] [place] [address], [place] [id number] Feb, [facility] [address] [id number] [address] [place] [address], [place] [id number] Feb, [facility] [address] [id number] [facility] [place] [id number] Feb, [facility] [address] [id number] [address] [place] [address], [place] [id number] January, [facility] [address] [id number] [facility] [place] [id number] January, [facility] [address] [id number] [address] [place] [address], [place] [id number] January, [facility] [address] [id number] [address] [place] [address], [place] [address] January, [facility] [address] [id number] [address] [place] [address], [place] [id number] January, [facility] [address] [id number] [address] [place] [address], [place] [id number] January, [facility] [address] [id number] [address] [place] [address], [place] [id number] January, [facility] [address] [id number] [address] [place] [address], [place] [id number] January, [facility] [address] [id number] [address] [place] [address], [place] [id number] January, [facility] [address] [id number] [address] [place] [address], [place] [id number] January, [facility] [address] [id number] [address] [place] [address], [place] [id number] January, [facility] [address] [id number] [address] [place] [address], [place] [id number] January, [facility] [address] [id number] [address] [place] [address], [place] [id number] January, [facility] [address] [id number] [address] [place] [address], [place] [id number] January, [facility] [address] [id number] [address] [place] [address], [place] [id number] Dec, [facility] [address] [id number] [facility] [place] [id number] Dec, [facility] [address] [id number] [address] [place] [address], [place] [id number] Dec, [facility] [address] [id number] [address] [place] [address], [place] [id number] Dec, [facility] [address] [id number] [address] [place] [address], [place] [id number] Dec, [facility] [address] [id number] [address] [place] [address], [place] [id number] Dec, [facility] [address] [id number] [address] [place] [address], [place] [id number] Dec, [facility] [address] [id number] [address] [place] [address], [place] [id number] Dec, [facility] [address] [id number] [address] [place] [address], [place] [id number] Dec, [facility] [address] [id number] [address] [place] [address], [place] [id number] Dec, [facility] [address] [id number] [address] [place] [address], [place] [id number] Nov, [facility] [address] [id number] [address] [place] [address], [place] [id number] Nov, [facility] [address] [id number] [address] [place] [address], [place] [id number] Nov, [facility] [address] [id number] [address] [place] [address], [place] [id number] Nov, [facility] [address] [id number] [address] [place] [address], [place] [id number] Nov, [facility] [address] [id number] [address] [place] [address], [place] [id number] Nov, [facility] [address] [id number] [facility] [place] [id number] 05 Nov, 2013 [facility] [address] [id number] [facility] [place] [id number] Nov, [facility] [address] [id number] [facility] [place] [id number] Nov, [facility] [address] [id number] [address] [place] [address], [place] [id number] Nov, [facility] [address] [id number] [address] [place] [address], [place] [id number] Oct, [facility] [address] [id number] [address] [place] [address], [place] [id number] Oct, [facility] [address] [id number] [address] [place] [address], [place] [id number] Oct, [facility] [address] [id number] [address] [place] [address], [place] [id number] Oct, [facility] [address] [id number] [address] [place] [address], [place] [id number] Oct, [facility] [address] [id number] [address] [place] [address], [place] [id number] Oct, [facility] [address] [id number] [address] [place] [address], [place] [id number] Oct, [facility] [address] [id number] [address] [place] [address], [place] [id number] Oct, [facility] [address] [id number] [address] [place] [address], [place] [id number] Oct, [facility] [address] [id number] [address] [place] [address], [place] [id number] Oct, [facility] [address] [id number] [address] [place] [address], [place] [id number] Oct, [facility] [address] [id number] [address] [place] [address], [place] [id number] 04 Oct, 2013 [facility] [address] [id number] [address] [place] [address], [place] [id number] Oct, [facility] [address] [id number] [address] [place] [address], [place] [id number] Oct, [facility] [address] [id number] [address] [place] [address], [place] [id number] Sep, [facility] [address] [id number] [address] [place] [address], [place] [id number] Sep, [facility] [address] [id number] [address] [place] [address], [place] [id number] Sep, [facility] [address] [id number] [address] [place] [address], [place] [id number] Sep, [facility] [address] [id number] [address] [place] [address], [place] [id number] Sep, [facility] [address] [id number] [address] [place] [address], [place] [id number] Sep, [facility] [address] [id number] [address] [place] [address], [place] [id number] Sep, [facility] [address] [id number] [address] [place] [address], [place] [id number] Sep, [facility] [address] [id number] [address] [place] [address], [place] [id number] Sep, [facility] [address] [id number] [address] [place] [address], [place] [id number] Sep, [facility] [address] [id number] [address] [place] [address], [place] [id number] Aug, [facility] [address] [id number] [address] [place] [address], [place] [id number] Aug, [facility] [address] [id number] [address] [place] [address], [place] [id number] Jul, [facility] [address] [id number] [address] [place] [address], [place] [id number] Jul, [facility] [address] [id number] [address] [place] [address], [place] [id number] Jul, [facility] [address] [id number] [address] [place] [address], [place] [id number] Jul, [facility] [address] [id number] [address] [place] [address], [place] [id number] Jul, [facility] [address] [id number] [address] [place] [address], [place] [id number] Jul, [facility] [address] [id number] [address] [place] [address], [place] [id number] Jul, [facility] [address] [id number] [address] [place] [address], [place] [id number] Jul, [facility] [address] [id number] [address] [place] [id number] Jul, [facility] [address] [id number] [address] [place] [address], [place] [id number] Jul, [facility] [address] [id number] [address] [place] [id number] Jul, [facility] [address] [id number] [address] [place] [id number] Jul, [facility] [address] [id number] [address] [place] [id number] Jul, [facility] [address] [id number] [address] [place] [id number] Jul, [facility] [address] [id number] [address] [place] [id number] Jul, [facility] [address] [id number] [address] [place] [id number] Jul, [facility] [address] [id number] [address] [place] [id number] Jul, [facility] [address] [id number] [address] [place] [address], [place] [id number] Jul, 2012 [facility] [address] [id number] [address] [place] [id number] Jul, [facility] [address] [id number] [address] [place] [address], [place] [id number] Jun, 2012 [facility] [address] [id number] [address] [place] [address], [place] [id number] Jun, 2012 [facility] [address] [id number] [address] [place] [address], [place] [id number] Jun, 2012 [facility] [address] [id number] [address] [place] [address], [place] [id number] Jun, 2012 [facility] [address] [id number] [address] [place] [id number] Jun, 2012 [facility] [address] [id number] [address] [place] [address], [place] [id number] Jun, [facility] [address] [id number] [address] [place] [id number] Jun, [facility] [address] [id number] [address] [place] [id number] Jun, [facility] [address] [id number] [address] [place] [id number] Jun, [facility] [address] [id number] [address] [place] [id number] Jun, [facility] [address] [id number] [address] [place] [id number] Jun, [facility] [address] [id number] [address] [place] [id number] May, [facility] [address] [id number] [address] [place] [id number] 25 May, 2013 [facility] [address] [id number] [facility] [place] [address] 19 May, 2012 [facility] [address] [id number] [facility] [place] [id number] 17 May, 2012 [facility] [address] [id number] [facility] [place] [address] 11 May, 2012 [facility] [address] [id number] [address] [place] [address], [place] [id number] 10 May, 2012 [facility] [address] [id number] [address] [place] [address], [place] [address] 09 May, 2013 [facility] [address] [id number] [address] [place] [address], [place] [id number] 05 May, 2013 [facility] [address] [id number] [address] [place] [address], [place] [id number] Apr, [facility] [address] [id number] [address] [place] [address], [place] [id number] Apr, [facility] [address] [id number] [address] [place] [address], [place] [id number] Apr, [facility] [address] [id number] [address] [place] [address], [place] [id number] Apr, [facility] [address] [id number] [address] [place] [address], [place] [id number] Apr, [facility] [address] [id number] [address] [place] [address], [place] [id number] Mar, [facility] [address] [id number] [address] [place] [address], [place] [id number] Mar, [facility] [address] [id number] [address] [place] [address], [place] [id number] Mar, [facility] [address] [id number] [address] [place] [address], [place] [id number] Mar, [facility] [address] [id number] [address] [place] [address], [place] [id number] Mar, [facility] [address] [id number] [facility] [place] [id number] Mar, [facility] [address] [id number] [address] [place] [address], [place] [id number] Mar, [facility] [address] [id number] [address] [place] [address], [place] [id number] Mar, [facility] [address] [id number] [address] [place] [address], [place] [id number] Feb, [facility] [address] [id number] [address] [place] [address], [place] [id number] Feb, [facility] [address] [id number] [address] [place] [address], [place] [id number] January, [facility] [address] [id number] [address] [place] [address], [place] [id number] January, [facility] [address] [id number] [address] [place] [address], [place] [id number] Dec, [facility] [address] [id number] [address] [place] [address], [place] [id number] Dec, [facility] [address] [id number] [address] [place] [address], [place] [id number] Nov, [facility] [address] [id number] [address] [place] [address], [place] [id number] Nov, [facility] [address] [id number] [address] [place] [address], [place] [id number] Nov, [facility] [address] [id number] [address] [place] [address], [place] [id number] Nov, [facility] [address] [id number] [address] [place] [address], [place] [id number] Oct, [facility] [address] [id number] [address] [place] [address], [place] [id number] Oct, [facility] [address] [id number] [address] [place] [address], [place] [id number] 26 Oct, 2012 [facility] [address] [id number] [address] [place] [address], [place] [id number] 26 Oct, 2012 [facility] [address] [id number] [address] [place] [address], [place] [id number] 16 Oct, 2012 [facility] [address] [id number] [address] [place] [address], [place] [id number] 14 Oct, 2012 [facility] [address] [id number] [address] [place] [address], [place] [id number] 08 Oct, 2012 [facility] [address] [id number] [address] [place] [address], [place] [id number] 07 Oct, 2012 [facility] [address] [id number] [address] [place] [address], [place] [id number] 03 Oct, 2012 [facility] [address] [id number] [address] [place] [address], [place] [id number] 30 Sep, 2012 [facility] [address] [id number] [address] [place] [address], [place] [id number] Sep, [facility] [address] [id number] [address] [place] [address], [place] [id number] Sep, [facility] [address] [id number] [address] [place] [address], [place] [id number] Sep, [facility] [address] [id number] [address] [place] [address], [place] [id number] Sep, [facility] [address] [id number] [address] [place] [address], [place] [id number] Sep, [facility] [address] [id number] [address] [place] [address], [place] [id number] 09 Sep, 2012 [facility] [address] [id number] [address] [place] [address], [place] [id number] 08 Sep, 2012 [facility] [address] [id number] [address] [place] [address] [address] Aug, [facility] [address] [id number] [address] [place] [address], [place] [id number] Aug, [facility] [address] [id number] [address] [place] [address], [place] [id number] Aug, [facility] [address] [id number] [address] [place] [address], [place] [id number] Aug, [facility] [address] [id number] [address] [place] [address], [place] [id number] Aug, [facility] [address] [id number] [address] [place] [address], [place] [id number] Aug, [facility] [address] [id number] [address] [place] [address], [place] [id number] Aug, [facility] [address] [id number] [address] [place] [address], [place] [id number] Aug, [facility] [address] [id number] [address] [place] [address], [place] [id number] Jul, [facility] [address] [id number] [address] [place] [address], [place] [id number] Jul, [facility] [address] [id number] [address] [place] [address], [place] [id number] Jul, [facility] [address] [id number] [address] [place] [address], [place] [id number] Jul, [facility] [address] [id number] [address] [place] [address], [place] [id number] Jul, [facility] [address] [id number] [address] [place] [address], [place] [id number] Jul, [facility] [address] [id number] [address] [place] [address], [place] [id number] Jun, [facility] [address] [id number] [address] [place] [address], [place] [id number] Jun, [facility] [address] [id number] [address] [place] [address], [place] [id number] 23 Jun, 2012 [facility] [address] [id number] [address] [place] [address], [place] [id number] 23 Jun, 2012 [facility] [address] [id number] [address] [place] [address], [place] [id number] 22 Jun, 2012 [facility] [address] [id number] [address] [place] [address], [place] [id number] 19 Jun, 2012 [facility] [address] [id number] [address] [place] [address], [place] [id number] 19 Jun, 2012 [facility] [address] [id number] [address] [place] [address], [place] [id number] 10 Jun, 2012 [facility] [address] [id number] [address] [place] [address], [place] [id number] 10 Jun, 2012 [facility] [address] [id number] [address] [place] [address], [place] [id number] 26 May, 2012 [facility] [address] [id number] [address] [place] [address], [place] [id number] 24 May, 2012 [facility] [address] [id number] [address] [place] [address], [place] [id number] 18 May, 2012 [facility] [address] [id number] [address] [place] [address], [place] [id number] 30 Apr, 2012 [facility] [address] [id number] [address] [place] [address], [place] [id number] 29 Apr, 2012 [facility] [address] [id number] [address] [place] [address], [place] [id number] 18 Apr, 2012 [facility] [address] [id number] [address] [place] [address], [place] [id number] 14 Apr, 2012 [facility] [address] [id number] [address] [place] [address], [place] [id number] 10 Apr, 2012 [facility] [address] [id number] [address] [place] [address], [place] [id number] Apr, [facility] [address] [id number] [address] [place] [address], [place] [id number] Mar, [facility] [address] [id number] [address] [place] [address], [place] [id number] Mar, [facility] [address] [id number] [address] [place] [address], [place] [id number] Mar, [facility] [address] [id number] [address] [place] [address], [place] [id number] Mar, [facility] [address] [id number] [address] [place] [address], [place] [id number] Feb, [facility] [address] [id number] [address] [place] [address], [place] [id number] Feb, [facility] [address] [id number] [address] [place] [address], [place] [id number] Feb, [facility] [address] [id number] [address] [place] [address], [place] [id number] Feb, [facility] [address] [id number] [address] [place] [address], [place] [id number] Feb, [facility] [address] [id number] [address] [place] [address], [place] [id number] January, [facility] [address] [id number] [address] [place] [address], [place] [id number] January, [facility] [address] [id number] [address] [place] [address], [place] [id number] January, [facility] [address] [id number] [address] [place] [address], [place] [id number] January, [facility] [address] [id number] [address] [place] [address], [place] [id number] January, [facility] [address] [id number] [address] [place] [address], [place] [id number] January, [facility] [address] [id number] [address] [place] [address], [place] [id number] 24 Dec, 2011 [facility] [address] [id number] [address] [place] [address], [place] [id number] 24 Dec, 2011 [facility] [address] [id number] [address] [place] [address], [place] [id number] 17 Dec, 2011 [facility] [address] [id number] [address] [place] [address], [place] [id number] 09 Dec, 2011 [facility] [address] [id number] [address] [place] [address], [place] [id number] 06 Dec, 2011 [facility] [address] [id number] [address] [place] [address], [place] [id number] 27 Nov, 2011 [facility] [address] [id number] [address] [place] [address], [place] [id number] 14 Nov, 2011 [facility] [address] [id number] [address] [place] [address], [place] [id number] Nov, [facility] [address] [id number] [address] [place] [address], [place] [id number] 07 Nov, 2011 [facility] [address] [id number] [address] [place] [address], [place] [id number] 29 Oct, 2011 [facility] [address] [id number] [address] [place] [address], [place] [id number] 28 Oct, 2011 [facility] [address] [id number] [address] [place] [address], [place] [id number] 24 Oct, 2011 [facility] [address] [id number] [address] [place] [address], [place] [id number] 13 Oct, 2011 [facility] [address] [id number] [address] [place] [address], [place] [id number] 08 Oct, 2011 [facility] [address] [id number] [address] [place] [address], [place] [id number] 31 Sep, 2011 [facility] [address] [id number] [address] [place] [address], [place] [id number] 30 Sep, 2011 [facility] [address] [id number] [address] [place] [address], [place] [id number] Sep, [facility] [address] [id number] [address] [place] [address], [place] [id number] Sep, [facility] [address] [id number] [address] [place] [address], [place] [id number] Sep, [facility] [address] [id number] [address] [place] [address], [place] [id number] Sep, [facility] [address] [id number] [address] [place] [address], [place] [id number] Aug, [facility] [address] [id number] [address] [place] [address], [place] [id number] Aug, [facility] [address] [id number] [address] [place] [address], [place] [id number] Aug, [facility] [address] [id number] [address] [place] [address], [place] [id number] Jul, [facility] [address] [id number] [address] [place] [address], [place] [id number] Jul, [facility] [address] [id number] [address] [place] [address], [place] [id number] Jul, [facility] [address] [id number] [address] [place] [address], [place] [id number] Jul, [facility] [address] [id number] [address] [place] [address], [place] [id number] Jun, [facility] [address] [id number] [address] [place] [address], [place] [id number] Jun, [facility] [address] [id number] [address] [place] [address], [place] [id number] Jun, [facility] [address] [id number] [address] [place] [address], [place] [id number] Jun, [facility] [address] [id number] [address] [place] [address], [place] [id number] 10 Jun, 2011 [facility] [address] [id number] [address] [place] [address], [place] [id number] 10 Jun, 2011 [facility] [address] [id number] [address] [place] [address], [place] [id number] 11 Mar, 2011 [facility] [address] [id number] [address] [place] [address], [place] [id number] 18 Dec, 2010 [facility] [address] [id number] [address] [place] [address], [place] [id number] 11 Dec, 2010 [facility] [address] [id number] [address] [place] [address], [place] [id number] 18 Nov, 2010 [facility] [address] [id number] [address] [place] [address], [place] [id number] 16 Nov, 2010 [facility] [address] [id number] [address] [place] [address], [place] [id number] 10 Sep, 2010 [facility] [address] [id number] [address] [place] [address], [place] [id number] 31 Aug, 2010 [facility] [address] [id number] [address] [place] [address], [place] [id number] 29 Aug, 2010 [facility] [address] [id number] [address] [place] [address], [place] [id number] 29 Aug, 2010 [facility] [address] [id number] [address] [place] [address], [place] [id number] 29 Aug, 2010 [facility] [address] [id number] [address] [place] [address], [place] [id number] 27 Aug, 2010 [facility] [address] [id number] [address] [place] [address], [place] [id number] 14 Aug, 2010 [facility] [address] [id number] [address] [place] [address], [place] [id number] 08 Aug, 2010 [facility] [address] [id number] [address] [place] [address], [place] [id number] 08 Aug, 2010 [facility] [address] [id number] [address] [place] [address], [place] [id number] 07 Aug, 2010 [facility] [address] [id number] [address] [place] [address], [place] [id number] Aug, [facility] [address] [id number] [address] [place] [address], [place] [id number] Aug, [facility] [address] [id number] [address] [place] [address], [place] [id number] Aug, [facility] [address] [id number] [address] [place] [address], [place] [id number] Jul, [facility] [address] [id number] [address] [place] [address], [place] [id number] Jul, [facility] [address] [id number] [address] [place] [address], [place] [id number] Jul, [facility] [address] [id number] [address] [place] [address], [place] [id number] Jul, [facility] [address] [id number] [address] [place] [address], [place] [id number] Jul, [facility] [address] [id number] [address] [place] [address], [place] [id number] Jul, [facility] [address] [id number] [address] [place] [address], [place] [id number] 24 Jun, 2010 [facility] [address] [id number] [address] [place] [address], [place] [id number] Jun, [facility] [address] [id number] [address] [place] [id number] Jun, [facility] [address] [id number] [address] [place] [address], [place] [id number] Jun, [facility] [address] [id number] [address] [place] [address], [place] [id number] Apr, [facility] [address] [id number] [address] [place] [address], [place] [id number] Mar, [facility] [address] [id number] [address] [place] [address], [place] [id number] 17 Feb, 2010 [facility] [address] [id number] [address] [place] [address], [place] [id number] January, [facility] [address] [id number] [address] [place] [address], [place] [id number] 15 Dec, 2009 [facility] [address] [id number] [address] [place] [address], [place] [id number] Nov, [facility] [address] [id number] [address] [place] [address], [place] [id number] Aug, [facility] [address] [id number] [address] [place] [address], [place] [id number] Aug, [facility] [address] [id number] [address] [place] [address], [place] [id number] Aug, [facility] [address] [id number] [address] [place] [id number] Jul, [facility] [address] [id number] [address] [place] [address], [place] [id number] Jul, [facility] [address] [id number] [address] [place] [id number] Jul, [facility] [address] [id number] [address] [place] [id number] 30 Jun, 2009 [facility] [address] [id number] [address] [place] [id number] 29 Jun, 2009 [facility] [address] [id number] [address] [place] [id number] Jun, [facility] [address] [id number] [address] [place] [id number] Jun, [facility] [address] [id number] [address] [place] [id number] Jun, [facility] [address] [id number] [address] [place] [id number] Jun, [facility] [address] [facility] [id number] [address] [place] [id number] Apr, [facility] [address] [facility] [id number] [address] [place] [id number] Apr, [facility] [address] [facility] [id number] [address] [place] [id number] Feb, [facility] [address] [facility] [id number] [address] [place] [id number] January, [facility] [address] [facility] [id number] [address] [place] [id number] Dec, IMMUNIZATIONS No Known Immunizations SOCIAL HISTORY [...] Medical History skin cancer-basal cell R moravian (removed ) Medical History Arthritis Medical History [...] Hospitalization History [facility] inpatient mental health ea rly 1999' Hospitalization History hyperkalemia 10/2017 Hospitalization History fluid in lung
--- OUTSIDE RECORDS SUMMARY | 2020-03-01 17:59 | XMS REPORT ---
Author Author Michele Muñoz Organization [facility] Address [address] [place] [address] Care Team Providers Care Call Center Representative Name Role Phone ARIANE Muñoz Unavailable PROBLEMS Type Condition ICD9-CM Code PZN62-XH Code Onset Dates Condition S tatus SNOMED Code Problem Leukocytosis D72.829 Active 9727344 06 Problem Bipolar I disorder, most recent episode (or curr ent) mixed, moderate F31.62 Active 55563194 Problem Reactive airway disease J45.909 Active 976624055509 Problem Anxiety F41.9 Active 17533800 Problem Insomnia, unspecified type G47.00 Act sharon 994971775 Problem Essential hypertension I10 Active 31498373 Problem Morbid obesity E66.01 Active 08144 6002 Problem Skin cancer C44.90 Active 01463971 7 Problem DM neuro manif type II E11.49 Active 61749915 Problem Mild cognitive impairment G31.84 Acti ve 044587931 Problem Benign prostatic hyperplasia with lower urinary tract symptoms, unspecified morphology N40.1 Active 19342 6007 Problem Chronic pain G89.29 Active 0848691 1 Problem Diabetes E11.9 Active 20373354 Problem Retinal edema H35.81 Active 073494 6 Problem Anemia of chronic illness D63.8 Acti ve 334296193 Problem Falling R29.6 Active 668269951 Problem Pressure ulcer of other site, stage 3 L89.893 Active 887445860 Problem 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 Active 776887652 Problem Eye exam abnormal R93.8 Active 16 2274482 Problem Pure hypercholesterolemia E78.00 Acti ve 201049680 Problem Dysuria R30.0 Active 12450389 Problem Bipolar disorder, in partial remission, most rec ent episode depressed F31.75 Active 97879055 Problem Hypokalemia E87.6 Active 45807232 Problem Other iron deficiency anemia D50.8 A ctive 78354514 Problem Eustachian tube dysfunction, unspecified laterality H69.80 Active 16672701 Problem Primary osteoarthritis of right knee M17.11 Active 175782972488261 Problem Cough R05 Active 10748374 Problem Bipolar disorder F31.9 Active 137 20590 Problem Chronic diastolic (congestive) heart failure I50.3 2 Active 894410307 Problem Psychophysiological insomnia F51.04 A ctive 827173273 Problem Gastroesophageal reflux disease without esophagitis K21.9 Active 789835993 Problem Polyneuropathy associated with underlying disease G63 Active 621041305 Problem Other secondary acute gout, 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 0 Active 608907015 Problem Diabetic polyneuropathy associated with type 2 d iabetes mellitus E11.42 Active 57542385 Problem Chronic lymphocytic leukemia C91.10 A ctive 86644305 Problem Bilateral primary osteoarthritis of knee M17.0 Active 087881798 Problem Type 2 diabetes mellitus with diabetic neuropathy, uns pecified E11.40 Active 47577378 Problem long-term (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 Z79.4 Active 956099516 Problem Lymphocytosis D72.820 Active 104477 09 Problem Mood disorder F39 Active 847769 05 Problem Bipolar I disorder, most recent episode depressed, moderat e F31.32 Active 521575274 ALLERGIES No Information ENCOUNTERS Encounter Location Date Diagnosis [facility] [address] [facility] [id number] [address] [place] [id number] 24 Dec, 2019 [facility] [address] [facility] [id number] [address] [place] [id number] Dec, [facility] [address] [facility] [id number] [address] [place] [id number] Dec, [facility] [address] [id number] [address] [place] [id number] Dec, Gastroesophageal reflux dise ase without esophagitis K21.9 and Pure hypercholesterolemia E78.00 [facility] [address] [id number] [address] [place] [phone] Dec, Mood disorder F39 [facility] [address] [facility] [id number] [address] [place] [id number] Nov, Other secondary acute gout, 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 [facility] [address] [id number] [address] [place] [phone] Nov, Gastroesophageal reflux dise ase without esophagitis K21.9 [facility] [address] [id number] [address] [place] [phone] Nov, Chronic pain G89.29 [facility] [address] [id number] [address] [place] [id number] Nov, Bipolar I disorder, most rec ent episode depressed, moderate F31.32 ; Anxiety F41.9 and Mild cognitive impairment G31.84 [facility] [address] [id number] [address] [place] [phone] Nov, [facility] [address] [facility] [id number] [address] [place] [id number] Nov, Syncope, unspecified syncope type R55 [facility] [address] [facility] [id number] [address] [place] [id number] Nov, Mood disorder F39 [facility] [address] [facility] [id number] [address] [place] [id number] Oct, Chronic pain G89.29 [facility] [address] [id number] [address] [place] [phone] Oct, [facility] [address] [facility] [id number] [address] [place] [phone] Oct, Mood disorder F39 [facility] [address] [facility] [id number] [address] [place] [phone] Oct, [facility] [address] [facility] [id number] [address] [place] [id number] Oct, Bipolar disorder, in partial remission, most recent episode depressed F31.75 and Mild cognitive impairment G31.84 [facility] [address] [facility] [id number] [address] [place] [id number] 04 Oct, 2019 Mood disorder F39 [facility] [address] [id number] [address] [place] [phone] Sep, [facility] [address] [id number] [address] [place] [phone] Sep, Mood disorder F39 [facility] [address] [id number] [address] [place] [id number] 13 Sep, 2019 Bipolar disorder, in partial remission, most recent episode depressed F31.75 and Mild cognitive impairment G31.84 [facility] [address] [id number] [address] [place] [id number] 06 Sep, 2019 Mood disorder F39 [facility] [address] [id number] [address] [place] [phone] Sep, [facility] [address] [id number] [address] [place] [id number] Sep, Mood disorder F39 [facility] [address] [id number] [address] [place] [phone] Sep, [facility] [address] [id number] [address] [place] [phone] Aug, Mood disorder F39 [facility] [address] [id number] [address] [place] [id number] Aug, [facility] [address] [id number] [address] [place] [id number] Aug, [facility] [address] [id number] [address] [place] [phone] Aug, [facility] [address] [id number] [address] [place] [id number] Aug, [facility] [address] [id number] [address] [place] [phone] Aug, [facility] [address] [id number] [address] [place] [phone] Aug, [facility] [address] [id number] [address] [place] [phone] Aug, [facility] [address] [id number] [address] [place] [phone] Aug, Essential hypertension I10 [facility] [address] [id number] [address] [place] [phone] Aug, Bipolar disorder, in partial remission, most recent episode depressed F31.75 and Mild cognitive impairment G31.84 [facility] [address] [id number] [address] [place] [id number] Aug, Mood disorder F39 [facility] [address] [id number] [address] [place] [phone] Aug, [facility] [address] [id number] [address] [place] [id number] Aug, Bipolar disorder, in partial remission, most recent episode depressed F31.75 and Mild cognitive impairment G31.84 [facility] [address] [id number] [address] [place] [phone] Jul, Bipolar disorder, in partial remission, most recent episode depressed F31.75 and Mild cognitive impairment G31.84 [facility] [address] [id number] [address] [place] [phone] Jul, Psychophysiological insomnia F51.04 [facility] [address] [id number] [address] [place] [id number] Jul, [facility] [address] [id number] [address] [place] [id number] Jul, [facility] [address] [id number] [address] [place] [phone] Jul, [facility] [address] [id number] [address] [place] [id number] Jul, [facility] [address] [id number] [address] [place] [phone] Jul, [facility] [address] [id number] [address] [place] [phone] Jul, [place] [id number] [facility] [id number] [address] [place] [id number] Jul, Bipolar disorder, in partial remission, most recent episode depressed F31.75 and Mild cognitive impairment G31.84 [place] [id number] [facility] [id number] [address] [place] [id number] Jul, Chronic pain G89.29 ; Diabet es E11.9 ; Essential hypertension I10 ; Ill feeling R68.89 ; Local infection of the skin and subcutaneous tissue, unspecified L08.9 and Other injury of unspecified body region, initial encounter T14.8XXA [place] [address] [facility] [id number] [address] [place] [id number] Jun, Bipolar disorder, in partial remission, most recent episode depressed F31.75 and Mild cognitive impairment G31.84 [place] [address] [facility] [id number] [address] [place] [id number] Jun, [place] [address] [facility] [id number] [address] [place] [phone] Jun, Bipolar disorder, in partial remission, most recent episode depressed F31.75 and Mild cognitive impairment G31.84 [place] [address] [facility] [id number] [address] [place] [id number] Jun, Psychophysiological insomnia F51.04 [place] [address] [facility] [id number] [address] [place] [id number] Jun, Psychophysiological insomnia F51.04 ; Chronic pain G89.29 ; Bipolar I disorder, most recent episode (or current) mixed, moderate F31.62 ; 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 ; Polyneuropathy associated with underlying disease G63 ; Type 2 diabetes mellitus with diabetic neuropathy, unspecified E11.40 ; 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 and Hyperglycemia R73.9 [place] [id number] [facility] [id number] [address] [place] [phone] Jun, Bipolar disorder, in partial remission, most recent episode depressed F31.75 and Mild cognitive impairment G31.84 [facility] [address] [id number] [address] [place] [phone] Jun, [facility] [address] [id number] [address] [place] [phone] Jun, Bipolar disorder F31.9 [facility] [address] [id number] [address] [place] [id number] May, Bipolar disorder, in partial remission, most recent episode depressed F31.75 and Mild cognitive impairment G31.84 [facility] [address] [id number] [address] [place] [phone] May, [facility] [address] [id number] [address] [place] [id number] Apr, Chronic pain G89.29 and Bipo lar disorder F31.9 [facility] [address] [id number] [address] [place] [id number] Mar, Bipolar disorder F31.9 and C hronic pain G89.29 [facility] [address] [id number] [address] [place] [id number] Feb, Bipolar disorder F31.9 [facility] [address] [id number] [address] [place] [id number] Feb, Cellulitis of right upper ex tremity L03.113 and Skin abrasion T14.8XXA [facility] [address] [id number] [address] [place] [phone] Feb, Bipolar disorder, in partial remission, most recent episode depressed F31.75 and Mild cognitive impairment G31.84 [facility] [address] [id number] [address] [place] [phone] Feb, Chronic pain G89.29 [facility] [address] [id number] [address] [place] [id number] Feb, Bipolar disorder, in partial remission, most recent episode depressed F31.75 and Mild cognitive impairment G31.84 [facility] [address] [id number] [address] [place] [id number] January, Bipolar disorder, in partial remission, most recent episode depressed F31.75 and Mild cognitive impairment G31.84 [facility] [address] [id number] [address] [place] [id number] January, Chronic pain G89.29 and Bipo lar disorder F31.9 [facility] [address] [id number] [address] [place] [phone] January, Bipolar disorder, in partial remission, most recent episode depressed F31.75 and Mild cognitive impairment G31.84 [facility] [address] [id number] [address] [place] [id number] Dec, [facility] [address] [id number] [address] [place] [id number] Dec, Chronic pain G89.29 and Bipo lar disorder F31.9 [facility] [address] [id number] [address] [place] [id number] Dec, Edema of both lower extremit ies R60.0 [facility] [address] [id number] [address] [place] [id number] Dec, Bipolar disorder F31.9 [facility] [address] [id number] [address] [place] [id number] Dec, Bipolar disorder, in partial remission, most recent episode depressed F31.75 and Mild cognitive impairment G31.84 [facility] [address] [id number] [address] [place] [phone] Nov, [facility] [address] [id number] [address] [place] [id number] Nov, Chronic pain G89.29 [facility] [address] [id number] [address] [place] [id number] Nov, Bipolar disorder, in partial remission, most recent episode depressed F31.75 and Mild cognitive impairment G31.84 [place] [address] [place] [id number] [address] [place] [phone] Nov, Bipolar disorder F31.[address] [id number] 04 Nov, 2018 Encounter for Medicare annua [...] unspecified morphology N40.1 and Essential hypertension I10 [address] [id number] 21 Oct, 2018 Chronic pain G89.29 [place] [address] [id number] 18 Oct, 2018 Diabetes E11.9 [place] [address] [id number] 11 Oct, 2018 Bipolar I disorder, most rec ent episode (or current) mixed, moderate F31.62 and Mild cognitive impairment G31.84 [place] [address] [place] [id number] [address] [place] [phone] Oct, Bipolar I disorder, most rec ent episode (or current) mixed, moderate F31.62 and Mild cognitive impairment G31.84 [place] [address] [place] [id number] [address] [place] [id number] Sep, Bipolar I disorder, most rec ent episode (or current) mixed, moderate F31.62 and Mild cognitive impairment G31.84 [place] [id number] [place] [address] Sep, [place] [id number] [place] [phone] Sep, Diabetes E11.9 ; Hypoxia R09 .02 ; Hyperglycemia R73.9 ; Therapeutic drug monitoring Z51.81 ; BMI 50.0-59.9, adult Z68.43 and Skin cancer C44.90 [facility] [address] [facility] [id number] [address] [place] [id number] Sep, Chronic pain G89.29 [facility] [address] [facility] [id number] [address] [place] [id number] Sep, Bipolar I disorder, most rec ent episode (or current) mixed, moderate F31.62 [place] [address] [facility] [id number] [address] [place] [phone] Sep, [facility] [address] [facility] [id number] [address] [place] [phone] Sep, [place] [address] [facility] [id number] [address] [place] [id number] Aug, Chronic pain G89.29 [facility] [address] [facility] [id number] [address] [place] [id number] Aug, Bipolar I disorder, most rec ent episode (or current) mixed, moderate F31.62 [place] [address] [facility] [id number] [address] [place] [id number] Aug, Bipolar I disorder, most rec ent episode (or current) mixed, moderate F31.62 and Mild cognitive impairment G31.84 [facility] [address] [facility] [id number] [address] [place] [phone] Jul, [facility] [address] [facility] [id number] [address] [place] [id number] Jul, Chronic pain G89.29 [facility] [address] [facility] [id number] [address] [place] [id number] Jul, Bipolar I disorder, most rec ent episode (or current) mixed, moderate F31.62 and Mild cognitive impairment G31.84 [place] [address] [facility] [id number] [address] [place] [id number] Jul, Bipolar I disorder, most rec ent episode (or current) mixed, moderate F31.62 and MCI (mild cognitive impairment) G31.84 [facility] [address] [facility] [id number] [address] [place] [id number] Jul, [facility] [address] [facility] [id number] [address] [place] [phone] Jul, [facility] [address] [facility] [id number] [address] [place] [id number] Jul, Bipolar I disorder, most rec ent episode (or current) mixed, moderate F31.62 [place] [address] [facility] [id number] [address] [place] [address] Jul, Chronic pain G89.29 [place] [address] [facility] [id number] [address] [place] [id number] Jun, Bipolar I disorder, most rec ent episode (or current) mixed, moderate F31.62 [place] [address] [facility] [id number] [address] [place] [phone] Jun, Pre-procedure lab exam Z01.8 12 [place] [address] [place] [id number] [address] [place] [id number] Jun, [facility] [address] [place] [id number] [place] [id number] Jun, [facility] [address] [place] [id number] [address] [place] [phone] Jun, [place] [address] [facility] [id number] [address] [place] [address] Jun, Forgetfulness R68.89 ; Pre-s yncope R55 ; Localized edema R60.0 ; Other iron deficiency anemia D50.8 and BMI 50.0-59.9, adult Z68.43 [place] [address] [place] [id number] [address] [place] [id number] Jun, Chronic pain G89.29 [facility] [address] [place] [id number] [address] [place] [id number] Jun, Chronic pain G89.29 [facility] [address] [place] [id number] [address] [place] [id number] Jun, Bipolar I disorder, most rec ent episode (or current) mixed, moderate F31.62 [place] [address] [place] [id number] [address] [place] [id number] May, Chronic pain G89.29 [facility] [address] [place] [id number] [address] [place] [id number] Apr, [place] [address] [place] [id number] [place] [id number] Apr, Chronic pain G89.29 [place] [address] [id number] Apr, Primary osteoarthritis of ri t knee M17.11 [place] [address] [place] [id number] [address] [place] [address] Mar, [place] [address] [place] [id number] [place] [id number] Mar, BMI 50.0-59.9, adult Z68.43 and Bipolar disorder, in partial remission, most recent episode depressed F31.75 [place] [address] [place] [id number] [place] [address] Mar, Diabetes E11.9 ; Pure hyperc holesterolemia E78.00 ; Essential hypertension I10 ; Nausea with vomiting, unspecified R11.2 and Headache, unspecified headache type R51 [place] [address] [place] [id number] [address] [place] [phone] Mar, Bipolar I disorder, most rec ent episode (or current) mixed, moderate F31.62 [place] [address] [place] [id number] [address] [place] [id number] Mar, Bipolar I disorder, most rec ent episode (or current) mixed, moderate F31.62 [facility] [address] [id number] [address] [place] [id number] Mar, Chronic pain G89.29 [facility] [address] [id number] [address] [place] [id number] Mar, Bipolar I disorder, most rec ent episode (or current) mixed, moderate F31.62 [facility] [address] [id number] [address] [place] [id number] Feb, Bipolar I disorder, most rec ent episode (or current) mixed, moderate F31.62 [place] [address] [id number] [address] [place] [id number] 14 Feb, 2018 Chronic pain G89.29 [facility] [address] [id number] [address] [place] [id number] Feb, Decubitus ulcer of right josselin t, stage 3 L89.893 and BMI 50.0-59.9, adult Z68.43 [facility] [address] [id number] [address] [place] [id number] Feb, Bipolar I disorder, most rec ent episode (or current) mixed, moderate F31.62 [facility] [address] [id number] [address] [place] [id number] Feb, [facility] [address] [id number] [address] [place] [id number] January, [facility] [address] [id number] [address] [place] [id number] January, Chronic pain G89.29 [facility] [address] [id number] [address] [place] [id number] January, Bipolar I disorder, most rec ent episode (or current) mixed, moderate F31.62 [facility] [address] [facility] [id number] [address] [place] [id number] January, Bipolar I disorder, most rec ent episode (or current) mixed, moderate F31.62 [facility] [address] [facility] [id number] [address] [place] [id number] Dec, Bipolar I disorder, most rec ent episode (or current) mixed, moderate F31.62 and BMI 50.0-59.9, adult Z68.43 [facility] [address] [facility] [id number] [address] [place] [id number] Dec, Bipolar I disorder, most rec ent episode (or current) mixed, moderate F31.62 [place] [id number] [facility] [id number] [address] [place] [id number] Dec, Chronic pain G89.29 [place] [address] [place] [id number] [address] [place] [id number] Dec, DM neuro manif type II E11.4 9 ; Right flank pain R10.9 ; long-term 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 Z79.891 ; Encounter for medication monitoring Z51.81 and BMI 50.0-59.9, adult Z68.43 [place] [address] [place] [id number] [address] [place] [id number] Dec, Bipolar I disorder, most rec ent episode (or current) mixed, moderate F31.62 [place] [address] [place] [id number] [address] [place] [id number] Nov, Bipolar I disorder, most rec ent episode (or current) mixed, moderate F31.62 [place] [id number] [facility] [id number] [address] [place] [id number] Nov, Chronic pain G89.29 [facility] [address] [facility] [id number] [address] [place] [id number] Nov, Bipolar I disorder, most rec ent episode (or current) mixed, moderate F31.62 [place] [id number] [facility] [id number] [address] [place] [id number] Nov, Hypokalemia E87.6 [place] [address] [address] Nov, Bipolar I disorder, most rec ent episode (or current) mixed, moderate F31.62 [place] [address] [address] Oct, Chronic pain G89.29 [place] [address] [address] Oct, BMI 50.0-59.9, adult Z68.43 and Bipolar I disorder, most recent episode (or current) mixed, moderate F31.62 [place] [address] [address] Oct, Bipolar I disorder, most rec ent episode (or current) mixed, moderate F31.62 [place] [address] [address] Oct, [place] [address] [address] Oct, Hypokalemia E87.6 [place] [address] [address] Oct, DM neuro manif type II E11.4 9 [place] [address] [address] Oct, Bipolar I disorder, most rec ent episode (or current) mixed, moderate F31.62 [place] [address] [address] Oct, Bipolar I disorder, most rec ent episode (or current) mixed, moderate F31.62 [place] [address] [address] 14 Oct, 2017 Hyperkalemia E87.5 ; Falling R29.6 ; BMI 50.0-59.9, adult Z68.43 and Acute left ankle pain M25.572 [place] [address] [place] [address] 08 Oct, 2017 DM neuro manif type II E11.4 9 [place] [address] [address] Oct, [place] [address] [address] Sep, Chronic pain G89.29 [place] [address] [address] Sep, [place] [address] [address] Sep, Bilateral primary osteoarthr itis of knee M17.0 [place] [address] [address] Sep, Generalized edema R60.1 [place] [address] [address] Sep, Bipolar I disorder, most rec ent episode (or current) mixed, moderate F31.62 [place] [address] [address] 15 Sep, 2017 Hypoxia R09.02 ; Other hyper volemia E87.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 ; Anemia of chronic illness D63.8 and BMI 50.0- 59.9, adult Z68.43 [place] [address] [place] [id number] [address] [place] [id number] Sep, [place] [address] [address] Sep, Bipolar I disorder, most rec ent episode (or current) mixed, moderate F31.62 [place] [address] [place] [id number] [address] [place] [address] Aug, Chronic pain G89.29 [place] [id number] [place] [address] Aug, Generalized edema R60.1 [facility] [address] [facility] [id number] [address] [place] [id number] Aug, [facility] [address] [facility] [id number] [address] [place] [id number] Aug, [facility] [address] [place] [id number] [address] [place] [id number] 14 Aug, 2017 Bipolar I disorder, most rec ent episode (or current) mixed, moderate F31.62 [place] [address] [place] [id number] [address] [place] [id number] Aug, Bipolar I disorder, most rec ent episode (or current) mixed, moderate F31.62 [place] [address] [place] [id number] [address] [place] [id number] Aug, Chronic pain G89.29 [facility] [address] [place] [id number] [address] [place] [id number] Jul, Bipolar I disorder, most rec ent episode (or current) mixed, moderate F31.62 [facility] [address] [place] [id number] [address] [place] [id number] Jul, Bipolar I disorder, most rec ent episode (or current) mixed, moderate F31.62 and BMI 60.0-69.9, adult Z68.44 [place] [address] [place] [id number] [address] [place] [address] Jul, Bipolar I disorder, most rec ent episode (or current) mixed, moderate F31.62 [facility] [address] [place] [id number] [address] [place] [id number] 06 Jul, 2017 Chronic pain G89.29 [facility] [address] [place] [id number] [address] [place] [id number] 02 Jul, 2017 Bipolar I disorder, most rec ent episode (or current) mixed, moderate F31.62 [facility] [address] [place] [id number] [address] [place] [address] Jun, Polyneuropathy associated wi th underlying disease G63 and Diabetes E11.9 [facility] [address] [facility] [id number] [address] [place] [id number] 16 Jun, 2017 Bipolar I disorder, most rec ent episode (or current) mixed, moderate F31.62 [facility] [address] [place] [id number] [address] [place] [id number] 09 Jun, 2017 Chronic pain G89.29 [facility] [address] [place] [id number] [address] [place] [id number] May, Bipolar I disorder, most rec ent episode (or current) mixed, moderate F31.62 [facility] [address] [place] [id number] [address] [place] [id number] May, Bipolar I disorder, most rec ent episode (or current) mixed, moderate F31.62 [facility] [address] [place] [id number] [address] [place] [address] May, Diabetic polyneuropathy asso ciated with type 2 diabetes mellitus E11.42 [facility] [address] [place] [id number] [address] [place] [id number] 18 May, 2017 Bipolar I disorder, most rec ent episode (or current) mixed, moderate F31.62 [facility] [address] [place] [id number] [address] [place] [id number] May, Bipolar I disorder, most rec ent episode (or current) mixed, moderate F31.62 [facility] [address] [facility] [id number] [address] [place] [address] May, Chronic pain G89.29 [facility] [address] [place] [id number] [address] [place] [id number] Apr, Bipolar I disorder, most rec ent episode (or current) mixed, moderate F31.62 [facility] [address] [place] [id number] [address] [place] [address] Apr, [facility] [address] [id number] [address] [place] [id number] Apr, Chronic pain G89.29 and DM n euro manif type II E11.49 [facility] [address] [id number] [address] [place] [id number] Apr, [facility] [address] [id number] [address] [place] [id number] Apr, Bipolar I disorder, most rec ent episode (or current) mixed, moderate F31.62 [facility] [address] [id number] [address] [place] [id number] Apr, Chronic pain G89.29 [facility] [address] [id number] [address] [place] [id number] Apr, Iliotibial band syndrome, le ft M76.32 [facility] [address] [id number] [address] [place] [id number] Apr, Bipolar I disorder, most rec ent episode (or current) mixed, moderate F31.62 [facility] [address] [id number] [address] [place] [phone] Mar, Bipolar I disorder, most rec ent episode (or current) mixed, moderate F31.62 [facility] [address] [id number] [address] [place] [id number] Mar, Bipolar I disorder, most rec ent episode (or current) mixed, moderate F31.62 [facility] [address] [id number] [address] [place] [id number] Mar, [facility] [address] [id number] [address] [place] [id number] Mar, Bipolar I disorder, most rec ent episode (or current) mixed, moderate F31.62 [facility] [address] [id number] [address] [place] [id number] Mar, Chronic pain G89.29 [facility] [address] [id number] [address] [place] [id number] Mar, Bipolar I disorder, most rec ent episode (or current) mixed, moderate F31.62 [facility] [address] [facility] [id number] [address] [place] [id number] Mar, Bipolar I disorder, most rec ent episode (or current) mixed, moderate F31.62 [facility] [address] [facility] [id number] [address] [place] [id number] Mar, Acute pain of left knee M25. 562 ; Left hip pain M25.552 ; Generalized edema R60.1 and Tongue swelling R22.0 [facility] [address] [facility] [id number] [address] [place] [phone] Mar, [facility] [address] [facility] [id number] [address] [place] [id number] Feb, Chronic pain G89.29 [facility] [address] [facility] [id number] [address] [place] [id number] Feb, Diabetes E11.9 [facility] [address] [id number] [address] [place] [id number] January, Chronic pain G89.29 [facility] [address] [facility] [id number] [address] [place] [id number] January, [facility] [address] [facility] [id number] [address] [place] [id number] January, Bipolar I disorder, most rec ent episode (or current) mixed, moderate F31.62 [facility] [address] [facility] [id number] [address] [place] [id number] Dec, Bipolar I disorder, most rec ent episode (or current) mixed, moderate F31.62 [facility] [address] [facility] [id number] [address] [place] [id number] Dec, Chronic pain G89.29 [facility] [address] [facility] [id number] [address] [place] [id number] Dec, Bipolar I disorder, most rec ent episode (or current) mixed, moderate F31.62 [facility] [address] [id number] [address] [place] [id number] Dec, Diabetes E11.9 ; Essential h ypertension I10 ; Chronic pain G89.29 and Morbid obesity E66.01 [facility] [address] [id number] [address] [place] [id number] Dec, [facility] [address] [facility] [id number] [address] [place] [id number] Dec, Bipolar I disorder, most rec ent episode (or current) mixed, moderate F31.62 [facility] [address] [facility] [id number] [address] [place] [id number] Dec, Bipolar I disorder, most rec ent episode (or current) mixed, moderate F31.62 [facility] [address] [facility] [id number] [address] [place] [id number] Nov, Chronic pain G89.29 [facility] [address] [id number] [address] [place] [id number] Nov, Bipolar I disorder, most rec ent episode (or current) mixed, moderate F31.62 [facility] [address] [facility] [id number] [address] [place] [id number] Nov, [facility] [address] [facility] [id number] [address] [place] [id number] Nov, Bipolar I disorder, most rec ent episode (or current) mixed, moderate F31.62 [facility] [address] [facility] [id number] [address] [place] [id number] Nov, Bipolar I disorder, most rec ent episode (or current) mixed, moderate F31.62 [facility] [address] [facility] [id number] [address] [place] [id number] Nov, [facility] [address] [facility] [id number] [address] [place] [id number] Nov, [facility] [address] [facility] [id number] [address] [place] [id number] Nov, [facility] [address] [facility] [id number] [address] [place] [id number] Oct, Chronic pain G89.29 [facility] [address] [facility] [id number] [address] [place] [id number] Oct, Bipolar I disorder, most rec ent episode (or current) mixed, moderate F31.62 [facility] [address] [facility] [id number] [address] [place] [id number] Oct, [facility] [address] [facility] [id number] [address] [place] [id number] Oct, Chronic pain G89.29 ; Diabet es E11.9 ; Anxiety F41.9 and 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 [facility] [address] [facility] [id number] [address] [place] [id number] Oct, [facility] [address] [facility] [id number] [address] [place] [id number] Oct, Diabetes E11.9 [facility] [address] [facility] [id number] [address] [place] [phone] Oct, Bipolar I disorder, most rec ent episode (or current) mixed, moderate F31.62 [facility] [address] [facility] [id number] [address] [place] [id number] Sep, Chronic pain G89.29 [facility] [address] [facility] [id number] [address] [place] [id number] Sep, Chronic pain G89.29 [facility] [address] [facility] [id number] [address] [place] [id number] Aug, Chronic pain G89.29 [facility] [address] [facility] [id number] [address] [place] [id number] Jul, [facility] [address] [facility] [id number] [address] [place] [id number] Jul, Diabetes E11.9 [facility] [address] [facility] [id number] [address] [place] [id number] Jul, Chronic pain G89.29 [facility] [address] [facility] [id number] [address] [place] [id number] Jul, Bipolar I disorder, most rec ent episode (or current) mixed, moderate F31.62 [place] [address] [facility] [id number] [address] [place] [id number] Jun, Bipolar I disorder, most rec ent episode (or current) mixed, moderate F31.62 [place] [address] [facility] [id number] [address] [place] [id number] Jun, [place] [address] [place] [id number] [address] [place] [id number] Jun, Bipolar I disorder, most rec ent episode (or current) mixed, moderate F31.62 [place] [address] [facility] [id number] [address] [place] [id number] 30 May, 2016 Insomnia, unspecified type G 47.00 [place] [address] [facility] [id number] [address] [place] [id number] May, Bipolar I disorder, most rec ent episode (or current) mixed, moderate F31.62 [place] [address] [facility] [id number] [address] [place] [id number] 14 May, 2016 [place] [address] [facility] [id number] [address] [place] [id number] 08 May, 2016 Bipolar I disorder, most rec ent episode (or current) mixed, moderate F31.62 [place] [address] [facility] [id number] [address] [place] [id number] 06 May, 2016 Diabetes E11.9 and Essential hypertension I10 [place] [address] [facility] [id number] [address] [place] [id number] Apr, Chronic pain G89.29 [facility] [address] [facility] [id number] [address] [place] [id number] Apr, Bipolar I disorder, most rec ent episode (or current) mixed, moderate F31.62 [place] [id number] [facility] [id number] [address] [place] [id number] Apr, [place] [address] [place] [id number] [address] [place] [id number] Apr, [place] [address] [place] [id number] [address] [place] [id number] Mar, Chronic pain G89.29 ; Headac he, unspecified headache type R51 ; Neuropathy G62.9 ; Pain of right hip joint M25.551 and Essential hypertension I10 [place] [address] [place] [id number] [address] [place] [id number] Mar, Chronic pain G89.29 [place] [address] [place] [id number] [address] [place] [id number] Mar, Bipolar I disorder, most rec ent episode (or current) mixed, moderate F31.62 [place] [address] [place] [id number] [address] [place] [id number] Feb, Bipolar I disorder, most rec ent episode (or current) mixed, moderate F31.62 and Insomnia, unspecified type G47.00 [place] [address] [facility] [id number] [address] [place] [id number] Feb, Chronic pain G89.29 [place] [address] [facility] [id number] [address] [place] [id number] Feb, Bipolar I disorder, most rec ent episode (or current) mixed, moderate F31.62 [place] [address] [facility] [id number] [address] [place] [id number] January, Bipolar I disorder, most rec ent episode (or current) mixed, moderate F31.62 [place] [address] [place] [id number] [address] [place] [id number] January, Chronic pain G89.29 [facility] [address] [id number] [address] [place] [id number] January, Chronic pain G89.29 and Esse ntial hypertension I10 [facility] [address] [facility] [id number] [address] [place] [id number] January, Bipolar I disorder, most rec ent episode (or current) mixed, moderate F31.62 [facility] [address] [id number] [address] [place] [id number] Dec, [facility] [address] [facility] [id number] [address] [place] [id number] Dec, [facility] [address] [facility] [id number] [address] [place] [id number] Dec, [facility] [address] [facility] [id number] [address] [place] [id number] Dec, [facility] [address] [facility] [id number] [address] [place] [id number] Nov, Reactive airway disease J45. 909 [facility] [address] [facility] [id number] [address] [place] [id number] Nov, [facility] [address] [facility] [id number] [address] [place] [id number] Nov, [facility] [address] [facility] [id number] [address] [place] [id number] 30 Nov, 2015 [facility] [address] [facility] [id number] [address] [place] [id number] Nov, [facility] [address] [place] [id number] [address] [place] [id number] Nov, Onychomycosis B35.1 ; Hammer toe M20.40 ; Carter or callus L84 and DM neuro manif type II E11.49 [facility] [address] [facility] [id number] [address] [place] [id number] Nov, Chronic pain G89.29 ; Leukoc ytosis D72.829 and Diabetes E11.9 [place] [address] [id number] Nov, [place] [address] [address] Oct, Bronchitis J40 [place] [address] [id number] Oct, [place] [address] [address] Oct, [place] [address] [id number] Oct, Mastoiditis, unspecified lat erality H70.90 and Type 2 diabetes mellitus with complication E11.8 [place] [address] [id number] Sep, [place] [address] [address] Sep, Dysuria R30.0 ; Cough R05 ; Benign prostatic hyperplasia with lower urinary tract symptoms, unspecified morphology N40.1 ; Hypokalemia E87.6 and Eustachian tube dysfunction, unspecified laterality H69.80 [place] [address] [address] Sep, Moderate mixed bipolar I dis order F31.62 [place] [address] [address] Sep, Hypokalemia E87.6 [place] [address] [address] Sep, [place] [address] [address] Sep, Upper respiratory tract infe ction, unspecified type J06.9 [place] [address] [id number] [address] [place] [id number] Aug, [facility] [address] [id number] [address] [place] [id number] Aug, Dysuria R30.0 [facility] [address] [id number] [address] [place] [id number] Aug, [facility] [address] [id number] [address] [place] [id number] Jul, [facility] [address] [id number] [address] [place] [id number] Jul, [facility] [address] [id number] [address] [place] [id number] Jul, [facility] [address] [id number] [address] [place] [id number] Jul, [facility] [address] [id number] [address] [place] [id number] Jun, [facility] [address] [id number] [address] [place] [id number] Jun, [facility] [address] [id number] [address] [place] [id number] Jun, [facility] [address] [id number] [address] [place] [id number] May, [facility] [address] [id number] [address] [place] [id number] May, Bipolar I disorder, most rec ent episode (or current) mixed, moderate 296.62 [facility] [address] [id number] [address] [place] [id number] 16 May, 2015 [facility] [address] [id number] [address] [place] [id number] 02 May, 2015 Bipolar I disorder, most rec ent episode (or current) mixed, moderate 296.62 and Major depressive disorder, recurrent episode, severe, specified as with psychotic behavior 296.34 [facility] [address] [facility] [id number] [address] [place] [address] May, Bipolar I disorder, most rec ent episode (or current) mixed, moderate 296.62 [facility] [address] [facility] [id number] [address] [place] [id number] May, [facility] [address] [facility] [id number] [address] [place] [address] Apr, [facility] [address] [facility] [id number] [address] [place] [id number] Apr, [facility] [address] [facility] [id number] [address] [place] [id number] Apr, Unspecified disorder of kidn ey and ureter 593.9 and Diabetes mellitus type 2, uncontrolled 250.02 [facility] [address] [facility] [id number] [address] [place] [id number] Apr, [facility] [address] [facility] [id number] [address] [place] [id number] Apr, [facility] [address] [facility] [id number] [address] [place] [id number] Apr, [facility] [address] [facility] [id number] [address] [place] [id number] Apr, [facility] [address] [facility] [id number] [address] [place] [id number] Apr, Diabetes mellitus type II, u ncontrolled 250.02 [facility] [address] [id number] [address] [place] [id number] Apr, [facility] [address] [facility] [id number] [address] [place] [id number] Mar, [facility] [address] [facility] [id number] [address] [place] [id number] Mar, [facility] [address] [facility] [id number] [address] [place] [id number] Mar, [facility] [address] [place] [id number] [address] [place] [address] Mar, Major depressive disorder, r ecurrent episode, severe, specified as with psychotic behavior 296.34 and Bipolar I disorder, most recent episode (or current) mixed, moderate 296.62 [facility] [address] [place] [id number] [address] [place] [address] Mar, Diabetes 250.00 ; Anuria 788 .5 ; Nausea and vomiting 787.01 and Diarrhea 787.91 [facility] [address] [place] [id number] [address] [place] [address] Mar, Diabetes 250.00 [facility] [address] [id number] Mar, [facility] [address] [place] [id number] [address] [place] [address] Mar, Diabetes 250.00 [facility] [address] [place] [id number] [address] [place] [phone] Mar, [facility] [address] [place] [id number] [address] [place] [address] Mar, [facility] [address] [place] [id number] [address] [place] [address] Mar, [facility] [address] [id number] [address] [place] [address] Mar, [facility] [address] [place] [id number] [address] [place] [address] Mar, Bipolar I disorder, most rec ent episode (or current) mixed, moderate 296.62 and Major depressive disorder, recurrent episode, severe, specified as with psychotic behavior 296.34 [facility] [address] [place] [id number] [address] [place] [address] Mar, Magnesium deficiency 275.2 ; Hypokalemia 276.8 ; Nausea & vomiting 787.01 and Diabetes mellitus type 2, uncontrolled 250.02 [facility] [address] [id number] [address] [place] [address] Feb, [facility] [address] [address] Feb, Bipolar I disorder, most rec ent episode (or current) mixed, moderate 296.62 [facility] [address] [address] Feb, Nausea and vomiting 787.01 ; Left elbow pain 719.42 ; Anuria 788.5 and Diabetes 250.00 [facility] [address] [address] Feb, [place] [address] [address] Feb, Hypopotassemia 276.8 and Hyp okalemia 276.8 [place] [address] [address] Feb, Hypopotassemia 276.8 and Hyp okalemia 276.8 [place] [address] [place] [id number] [address] [place] [address] Feb, Seborrheic keratoses 702.19 [place] [address] [place] [id number] [address] [place] [address] Feb, Hypopotassemia 276.8 and Low magnesium levels 275.2 [place] [address] [place] [id number] [address] [place] [address] January, [facility] [address] [place] [id number] [address] [place] [id number] January, [facility] [address] [address] January, [facility] [address] [place] [id number] [address] [place] [phone] January, Scalp lesion 709.9 [facility] [address] [address] January, [facility] [address] [id number] [address] [place] [id number] 30 Dec, 2014 Tear of medial cartilage or meniscus of knee, current 836.0 and 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 [facility] [address] [id number] [address] [place] [id number] Dec, [facility] [address] [id number] [address] [place] [id number] Dec, [facility] [address] [id number] [address] [place] [id number] Dec, Squamous cell carcinoma, 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 [facility] [address] [id number] [address] [place] [id number] 14 Dec, 2014 [facility] [address] [id number] [address] [place] [id number] Dec, [facility] [address] [id number] [address] [place] [phone] Nov, [facility] [address] [id number] [address] [place] [id number] Nov, [facility] [address] [id number] [address] [place] [address] Nov, [facility] [address] [id number] [address] [place] [id number] Nov, [facility] [address] [id number] [address] [place] [id number] Nov, [facility] [address] [id number] [address] [place] [address] Nov, [facility] [address] [id number] [address] [place] [id number] Nov, [facility] [address] [id number] [address] [place] [id number] Nov, [facility] [address] [id number] [address] [place] [address], [place] [address] Nov, [facility] [address] [id number] [address] [place] [address], [place] [address] Nov, [facility] [address] [id number] [address] [place] [address], [place] [address] Nov, [facility] [address] [id number] [address] [place] [address], [place] [address] Nov, [facility] [address] [id number] [address] [place] [address], [place] [address] Oct, 2014 [facility] [address] [id number] [address] [place] [address], [place] [address] Oct, 2014 [facility] [address] [id number] [address] [place] [address], [place] [address] Oct, 2014 [facility] [address] [id number] [address] [place] [address], [place] [address] Oct, 2014 [facility] [address] [id number] [address] [place] [address], [place] [address] Oct, [facility] [address] [id number] [address] [place] [address], [place] [address] Oct, [facility] [address] [id number] [address] [place] [id number] Oct, 2014 [facility] [address] [id number] [address] [place] [address] Oct, 2014 [facility] [address] [id number] [address] [place] [address], [place] [address] Oct, [facility] [address] [id number] [address] [place] [id number] Sep, [facility] [address] [id number] [address] [place] [id number] Sep, [facility] [address] [id number] [address] [place] [id number] Sep, [facility] [address] [id number] [address] [place] [address], [place] [address] Sep, [facility] [address] [id number] [address] [place] [address], [place] [address] Sep, [facility] [address] [id number] [address] [place] [address], [place] [address] Sep, [facility] [address] [id number] [address] [place] [address], [place] [address] Sep, [facility] [address] [id number] [address] [place] [address], [place] [address] Sep, [facility] [address] [id number] [address] [place] [address], [place] [address] Sep, [facility] [address] [id number] [address] [place] [address], [place] [address] Sep, [facility] [address] [id number] [address] [place] [address], [place] [address] Sep, [facility] [address] [id number] [address] [place] [address], [place] [address] Sep, [facility] [address] [id number] [address] [place] [address], [place] [address] Sep, [facility] [address] [id number] [address] [place] [address], [place] [address] Sep, [facility] [address] [id number] [address] [place] [address], [place] [address] Sep, [facility] [address] [id number] [address] [place] [address], [place] [address] Sep, [facility] [address] [id number] [address] [place] [address], [place] [address] Aug, [facility] [address] [id number] [address] [place] [address], [place] [address] Aug, [facility] [address] [id number] [facility] [place] [address] Aug, [facility] [address] [id number] [facility] [place] [address] Aug, [facility] [address] [id number] [facility] [place] [address] Aug, [facility] [address] [id number] [facility] [place] [address] Aug, [facility] [address] [id number] [facility] [place] [address] Aug, [facility] [address] [id number] [address] [place] [address], [place] [address] Aug, [facility] [address] [id number] [address] [place] [address], [place] [address] Aug, [facility] [address] [id number] [address] [place] [address], [place] [address] Aug, [facility] [address] [id number] [address] [place] [address], [place] [address] Aug, [facility] [address] [place] [id number] Aug, [facility] [address] [id number] [address] [place] [address], [place] [address] Aug, [facility] [address] [id number] [address] [place] [address], [place] [address] Aug, [facility] [address] [id number] [address] [place] [address], [place] [address] Aug, [facility] [address] [id number] [address] [place] [address], [place] [address] Aug, [facility] [address] [id number] [facility] [place] [address] Aug, [facility] [address] [id number] [address] [place] [address], [place] [address] Aug, [facility] [address] [id number] [address] [place] [address], [place] [address] Aug, [facility] [address] [id number] [address] [place] [address], [place] [address] Aug, [facility] [address] [id number] [address] [place] [address], [place] [address] Aug, [facility] [address] [id number] [address] [place] [address], [place] [address] Aug, [facility] [address] [id number] [address] [place] [address], [place] [address] Aug, [facility] [address] [id number] [address] [place] [address], [place] [address] Aug, [facility] [address] [id number] [address] [place] [address], [place] [address] Aug, [facility] [address] [id number] [address] [place] [address], [place] [address] Aug, [facility] [address] [id number] [address] [place] [address], [place] [address] Aug, [facility] [address] [id number] [address] [place] [address], [place] [address] Aug, [facility] [address] [id number] [address] [place] [address], [place] [address] Aug, [facility] [address] [id number] [address] [place] [address], [place] [address] Aug, [facility] [address] [id number] [address] [place] [address], [place] [address] Jul, [facility] [address] [id number] [address] [place] [address], [place] [address] Jul, [facility] [address] [id number] [address] [place] [address], [place] [address] Jul, [facility] [address] [id number] [address] [place] [address] Jul, [facility] [address] [id number] [address] [place] [address], [place] [address] Jul, [facility] [address] [id number] [address] [place] [address] Jul, [facility] [address] [id number] [address] [place] [address], [place] [address] Jul, [facility] [address] [id number] [address] [place] [address] Jul, [facility] [address] [id number] [address] [place] [address], [place] [address] Jul, [facility] [address] [id number] [address] [place] [address], [place] [address] Jul, [facility] [address] [id number] [address] [place] [address], [place] [address] Jun, [facility] [address] [id number] [address] [place] [address], [place] [address] Jun, [facility] [address] [id number] [address] [place] [address] Jun, [facility] [address] [id number] [address] [place] [address] Jun, [facility] [address] [id number] [address] [place] [address] Jun, [facility] [address] [id number] [address] [place] [address] Jun, [facility] [address] [id number] [address] [place] [address] Jun, [facility] [address] [id number] [address] [place] [address] Jun, [facility] [address] [id number] [address] [place] [address], [place] [address] Jun, [facility] [address] [id number] [facility] [place] [address] Jun, 2013 [facility] [address] [id number] [address] [place] [address], [place] [address] 29 Sep, 2013 [facility] [address] [id number] [address] [place] [address], [place] [address] 29 Sep, 2013 [facility] [address] [id number] [address] [place] [address], [place] [address] 26 Sep, 2013 [facility] [address] [id number] [address] [place] [address], [place] [address] 26 Sep, 2013 [facility] [address] [id number] [address] [place] [address], [place] [address] 17 Sep, 2013 [facility] [address] [id number] [address] [place] [address], [place] [address] 17 Sep, 2013 [facility] [address] [id number] [address] [place] [address], [place] [address] 15 Sep, 2013 [facility] [address] [id number] [address] [place] [address], [place] [address] 15 Sep, 2013 [facility] [address] [id number] [address] [place] [address], [place] [address] 15 Sep, 2013 [facility] [address] [id number] [address] [place] [address], [place] [address] 15 Sep, 2013 [facility] [address] [id number] [address] [place] [address], [place] [address] 10 Sep, 2013 [facility] [address] [id number] [address] [place] [address], [place] [address] 10 Sep, 2013 [facility] [address] [id number] [address] [place] [address], [place] [address] 09 Sep, 2013 [facility] [address] [id number] [address] [place] [address], [place] [address] 09 Sep, 2013 [facility] [address] [id number] [address] [place] [address], [place] [address] May, [facility] [address] [id number] [facility] [place] [address] May, [facility] [address] [id number] [facility] [place] [address] Apr, [facility] [address] [id number] [facility] [place] [address] Apr, [facility] [address] [id number] [address] [place] [address], [place] [address] Apr, [facility] [address] [id number] [address] [place] [address], [place] [address] Apr, [facility] [address] [id number] [address] [place] [address], [place] [address] Apr, [facility] [address] [id number] [address] [place] [address], [place] [address] Apr, [facility] [address] [id number] [address] [place] [address], [place] [address] Apr, [facility] [address] [id number] [address] [place] [address], [place] [address] Apr, [facility] [address] [id number] [address] [place] [address], [place] [address] Apr, [facility] [address] [id number] [address] [place] [address], [place] [address] Apr, [facility] [address] [id number] [address] [place] [address], [place] [address] Apr, [facility] [address] [id number] [address] [place] [address], [place] [address] Apr, [facility] [address] [id number] [address] [place] [id number], [place] [address] Apr, [facility] [address] [id number] [address] [place] [address], [place] [address] Apr, [facility] [address] [id number] [address] [place] [address], [place] [address] Apr, [facility] [address] [id number] [facility] [place] [address] Mar, 2013 [facility] [address] [id number] [address] [place] [id number], [place] [address] Mar, [facility] [address] [id number] [address] [place] [address], [place] [address] Mar, 2013 [facility] [address] [id number] [address] [place] [address], [place] [address] Mar, 2013 [facility] [address] [id number] [address] [place] [address], [place] [address] Mar, [facility] [address] [id number] [address] [place] [address], [place] [address] Mar, [facility] [address] [id number] [address] [place] [address], [place] [address] Mar, 2013 [facility] [address] [id number] [address] [place] [address], [place] [address] Mar, [facility] [address] [id number] [address] [place] [address], [place] [address] Mar, 2013 [facility] [address] [id number] [address] [place] [address], [place] [address] Mar, [facility] [address] [id number] [address] [place] [address], [place] [address] Mar, 2013 [facility] [address] [id number] [address] [place] [address], [place] [address] Mar, 2013 [facility] [address] [id number] [address] [place] [address], [place] [address] Mar, 2013 [facility] [address] [id number] [address] [place] [address], [place] [address] Mar, 2013 [facility] [address] [id number] [address] [place] [address], [place] [address] Mar, 2013 [facility] [address] [id number] [facility] [place] [address] Mar, [facility] [address] [id number] [facility] [place] [address] Mar, [facility] [address] [id number] [facility] [place] [address] Mar, [facility] [address] [id number] [facility] [place] [address] Feb, [facility] [address] [id number] [address] [place] [address], [place] [address] Feb, [facility] [address] [id number] [address] [place] [address], [place] [address] Feb, [facility] [address] [id number] [address] [place] [address], [place] [address] Feb, [facility] [address] [id number] [address] [place] [address], [place] [address] Feb, [facility] [address] [id number] [address] [place] [address], [place] [address] Feb, [facility] [address] [id number] [address] [place] [address], [place] [address] Feb, [facility] [address] [id number] [address] [place] [address], [place] [address] Feb, [facility] [address] [id number] [address] [place] [address], [place] [address] Feb, [facility] [address] [id number] [address] [place] [address], [place] [address] Feb, [facility] [address] [id number] [address] [place] [address], [place] [address] Feb, [facility] [address] [id number] [address] [place] [address], [place] [address] Feb, [facility] [address] [id number] [address] [place] [address], [place] [address] Feb, [facility] [address] [id number] [facility] [place] [address] Feb, [facility] [address] [id number] [address] [place] [address], [place] [address] January, [facility] [address] [id number] [facility] [place] [address] January, [facility] [address] [id number] [address] [place] [address], [place] [address] January, [facility] [address] [id number] [facility] [place] [address] January, [facility] [address] [id number] [address] [place] [address], [place] [address] January, [facility] [address] [id number] [address] [place] [address], [place] [address] January, [facility] [address] [id number] [address] [place] [address], [place] [address] January, [facility] [address] [id number] [address] [place] [address], [place] [address] January, [facility] [address] [id number] [address] [place] [address], [place] [address] January, [facility] [address] [id number] [address] [place] [address], [place] [address] January, [facility] [address] [id number] [address] [place] [address], [place] [address] January, [facility] [address] [id number] [address] [place] [address], [place] [address] January, [facility] [address] [id number] [address] [place] [address], [place] [address] January, [facility] [address] [id number] [address] [place] [address], [place] [address] January, [facility] [address] [id number] [facility] [place] [address] Dec, [facility] [address] [id number] [facility] [place] [address] Dec, [facility] [address] [id number] [facility] [place] [address] Dec, [facility] [address] [id number] [address] [place] [address], [place] [address] Dec, [facility] [address] [id number] [address] [place] [address], [place] [address] Dec, [facility] [address] [id number] [address] [place] [address], [place] [address] Dec, [facility] [address] [id number] [address] [place] [address], [place] [address] Dec, [facility] [address] [id number] [address] [place] [address], [place] [address] Dec, [facility] [address] [id number] [address] [place] [address], [place] [address] Dec, [facility] [address] [id number] [address] [place] [address], [place] [address] Dec, [facility] [address] [id number] [address] [place] [address], [place] [address] Nov, [facility] [address] [id number] [address] [place] [address], [place] [address] Nov, [facility] [address] [id number] [address] [place] [address], [place] [address] Nov, [facility] [address] [id number] [address] [place] [address], [place] [address] Nov, [facility] [address] [id number] [address] [place] [address], [place] [address] Nov, [facility] [address] [id number] [address] [place] [address], [place] [address] Nov, [facility] [address] [id number] [address] [place] [address], [place] [address] Nov, [facility] [address] [id number] [address] [place] [address], [place] [address] Nov, [facility] [address] [id number] [address] [place] [address], [place] [address] Nov, [facility] [address] [id number] [address] [place] [address], [place] [address] Nov, [facility] [address] [id number] [address] [place] [address], [place] [address] Oct, [facility] [address] [id number] [address] [place] [address], [place] [address] Oct, [facility] [address] [id number] [address] [place] [address], [place] [address] Oct, [facility] [address] [id number] [address] [place] [address], [place] [address] Oct, [facility] [address] [id number] [address] [place] [address], [place] [address] Oct, [facility] [address] [id number] [address] [place] [address], [place] [address] Oct, [facility] [address] [id number] [address] [place] [address], [place] [address] Oct, [facility] [address] [id number] [address] [place] [address], [place] [address] Oct, [facility] [address] [id number] [address] [place] [address], [place] [address] Oct, [facility] [address] [id number] [address] [place] [address], [place] [address] Oct, [facility] [address] [id number] [address] [place] [address], [place] [address] Oct, [facility] [address] [id number] [address] [place] [address], [place] [address] 04 Oct, 2013 [facility] [address] [id number] [address] [place] [address], [place] [address] Oct, [facility] [address] [id number] [address] [place] [address], [place] [address] Oct, [facility] [address] [id number] [address] [place] [address], [place] [address] Sep, [facility] [address] [id number] [address] [place] [address], [place] [address] Sep, [facility] [address] [id number] [address] [place] [address], [place] [address] Sep, [facility] [address] [id number] [address] [place] [address], [place] [address] Sep, [facility] [address] [id number] [address] [place] [address], [place] [address] Sep, [facility] [address] [id number] [address] [place] [address], [place] [address] Sep, [facility] [address] [id number] [address] [place] [address], [place] [address] Sep, [facility] [address] [id number] [address] [place] [address], [place] [address] Sep, [facility] [address] [id number] [address] [place] [address], [place] [address] Sep, [facility] [address] [id number] [address] [place] [address], [place] [address] Sep, [facility] [address] [id number] [address] [place] [address], [place] [address] Aug, [facility] [address] [id number] [address] [place] [address], [place] [address] Aug, [facility] [address] [id number] [address] [place] [address], [place] [address] Jul, [facility] [address] [id number] [address] [place] [address], [place] [address] Jul, [facility] [address] [id number] [address] [place] [address], [place] [address] Jul, [facility] [address] [id number] [address] [place] [address], [place] [address] Jul, [facility] [address] [id number] [address] [place] [address], [place] [address] Jul, [facility] [address] [id number] [address] [place] [address], [place] [address] Jul, [facility] [address] [id number] [address] [place] [address], [place] [address] Jul, [facility] [address] [id number] [address] [place] [address], [place] [address] Jul, [facility] [address] [id number] [address] [place] [address], [place] [address] Jul, [facility] [address] [id number] [address] [place] [address], [place] [address] Jul, [facility] [address] [id number] [address] [place] [address], [place] [address] Jul, [facility] [address] [id number] [address] [place] [address] Jul, [facility] [address] [id number] [address] [place] [address] Jul, [facility] [address] [id number] [address] [place] [address], [place] [address] Jul, [facility] [address] [id number] [address] [place] [address], [place] [address] Jul, [facility] [address] [id number] [address] [place] [address], [place] [address] Jul, [facility] [address] [id number] [address] [place] [address], [place] [address] Jul, 2012 [facility] [address] [id number] [address] [place] [address], [place] [address] Jul, 2012 [facility] [address] [id number] [address] [place] [address], [place] [address] Jul, 2012 [facility] [address] [id number] [address] [place] [address], [place] [address] Jun, 2012 [facility] [address] [id number] [address] [place] [address], [place] [address] Jun, 2012 [facility] [address] [id number] [address] [place] [address], [place] [address] Jun, 2012 [facility] [address] [id number] [address] [place] [address], [place] [address] Jun, 2012 [facility] [address] [id number] [address] [place] [address], [place] [address] Jun, 2012 [facility] [address] [id number] [address] [place] [address], [place] [address] Jun, 2012 [facility] [address] [id number] [address] [place] [address], [place] [address] Jun, 2012 [facility] [address] [id number] [address] [place] [address], [place] [address] Jun, [facility] [address] [id number] [address] [place] [address], [place] [address] Jun, [facility] [address] [id number] [address] [place] [address] Jun, [facility] [address] [id number] [address] [place] [address], [place] [address] Jun, [facility] [address] [id number] [address] [place] [address], [place] [address] May, [facility] [address] [id number] [address] [place] [address] 25 May, 2013 [facility] [address] [id number] [address] [place] [address], [place] [address] 19 May, 2012 [facility] [address] [id number] [address] [place] [address], [place] [address] 17 May, 2012 [facility] [address] [id number] [address] [place] [address], [place] [address] 11 May, 2012 [facility] [address] [id number] [address] [place] [address], [place] [address] 10 May, 2012 [facility] [address] [id number] [address] [place] [address], [place] [address] 09 May, 2013 [facility] [address] [id number] [address] [place] [address], [place] [address] 05 May, 2013 [facility] [address] [id number] [address] [place] [address], [place] [address] Apr, [facility] [address] [id number] [address] [place] [address], [place] [address] Apr, [facility] [address] [id number] [address] [place] [address], [place] [address] Apr, [facility] [address] [id number] [address] [place] [address], [place] [address] Apr, [facility] [address] [id number] [address] [place] [address], [place] [address] Apr, [facility] [address] [id number] [address] [place] [address], [place] [address] Mar, [facility] [address] [id number] [address] [place] [address], [place] [address] Mar, [facility] [address] [id number] [address] [place] [address], [place] [address] Mar, [facility] [address] [id number] [address] [place] [address], [place] [address] Mar, [facility] [address] [id number] [address] [place] [address], [place] [address] Mar, [facility] [address] [id number] [address] [place] [address], [place] [address] Mar, [facility] [address] [id number] [address] [place] [address], [place] [address] Mar, [facility] [address] [id number] [address] [place] [address], [place] [address] Mar, [facility] [address] [id number] [address] [place] [address], [place] [address] Feb, [facility] [address] [id number] [address] [place] [address], [place] [address] Feb, [facility] [address] [id number] [address] [place] [address], [place] [address] January, [facility] [address] [id number] [address] [place] [address], [place] [address] January, [facility] [address] [id number] [address] [place] [address], [place] [address] Dec, [facility] [address] [id number] [address] [place] [address], [place] [address] Dec, [facility] [address] [id number] [address] [place] [address], [place] [address] Nov, [facility] [address] [id number] [address] [place] [address], [place] [address] Nov, [facility] [address] [id number] [address] [place] [address], [place] [address] Nov, [facility] [address] [id number] [address] [place] [address], [place] [address] Nov, [facility] [address] [id number] [address] [place] [address], [place] [address] Oct, [facility] [address] [id number] [address] [place] [address], [place] [address] Oct, [facility] [address] [id number] [address] [place] [address], [place] [address] 26 Oct, 2012 [facility] [address] [id number] [address] [place] [address], [place] [address] 26 Oct, 2012 [facility] [address] [id number] [address] [place] [address], [place] [address] 16 Oct, 2012 [facility] [address] [id number] [address] [place] [address], [place] [address] 14 Oct, 2012 [facility] [address] [id number] [address] [place] [address], [place] [address] 08 Oct, 2012 [facility] [address] [id number] [address] [place] [address], [place] [address] 07 Oct, 2012 [facility] [address] [id number] [address] [place] [address], [place] [address] 03 Oct, 2012 [facility] [address] [id number] [address] [place] [address], [place] [address] 30 Sep, 2012 [facility] [address] [id number] [address] [place] [address], [place] [address] Sep, [facility] [address] [id number] [address] [place] [address], [place] [address] Sep, [facility] [address] [id number] [address] [place] [address], [place] [address] Sep, [facility] [address] [id number] [address] [place] [address], [place] [address] Sep, [facility] [address] [id number] [address] [place] [address], [place] [address] Sep, [facility] [address] [id number] [address] [place] [address], [place] [address] 09 Sep, 2012 [facility] [address] [id number] [address] [place] [address], [place] [address] 08 Sep, 2012 [facility] [address] [id number] [address] [place] [address], [place] [address] Aug, [facility] [address] [id number] [address] [place] [address], [place] [address] Aug, [facility] [address] [id number] [address] [place] [address], [place] [address] Aug, [facility] [address] [id number] [address] [place] [address], [place] [address] Aug, [facility] [address] [id number] [address] [place] [address], [place] [address] Aug, [facility] [address] [id number] [address] [place] [address], [place] [address] Aug, [facility] [address] [id number] [address] [place] [address], [place] [address] Aug, [facility] [address] [id number] [address] [place] [address], [place] [address] Aug, [facility] [address] [id number] [address] [place] [address], [place] [address] Jul, [facility] [address] [id number] [address] [place] [address], [place] [address] Jul, [facility] [address] [id number] [address] [place] [address], [place] [address] Jul, [facility] [address] [id number] [address] [place] [address], [place] [address] Jul, [facility] [address] [id number] [address] [place] [address], [place] [address] Jul, [facility] [address] [id number] [address] [place] [address], [place] [address] Jul, [facility] [address] [id number] [address] [place] [address], [place] [address] Jun, [facility] [address] [id number] [address] [place] [address], [place] [address] Jun, [facility] [address] [id number] [address] [place] [address], [place] [address] 23 Jun, 2012 [facility] [address] [id number] [address] [place] [address], [place] [address] 23 Jun, 2012 [facility] [address] [id number] [address] [place] [address], [place] [address] Jun, [facility] [address] [id number] [address] [place] [address], [place] [address] Jun, [facility] [address] [id number] [address] [place] [address], [place] [address] 19 Jun, 2012 [facility] [address] [id number] [address] [place] [address], [place] [address] Jun, [facility] [address] [id number] [address] [place] [address], [place] [address] 10 Jun, 2012 [facility] [address] [id number] [address] [place] [address], [place] [address] 26 May, 2012 [facility] [address] [id number] [address] [place] [address], [place] [address] 24 May, 2012 [facility] [address] [id number] [address] [place] [address], [place] [address] 18 May, 2012 [facility] [address] [id number] [address] [place] [address], [place] [address] 30 Apr, 2012 [facility] [address] [id number] [address] [place] [address], [place] [address] 29 Apr, 2012 [facility] [address] [id number] [address] [place] [address], [place] [address] 18 Apr, 2012 [facility] [address] [id number] [address] [place] [address], [place] [address] 14 Apr, 2012 [facility] [address] [id number] [address] [place] [address], [place] [address] 10 Apr, 2012 [facility] [address] [id number] [address] [place] [address], [place] [address] Apr, [facility] [address] [id number] [address] [place] [address], [place] [address] Mar, [facility] [address] [id number] [address] [place] [address], [place] [address] Mar, [facility] [address] [id number] [address] [place] [address], [place] [address] Mar, [facility] [address] [id number] [address] [place] [address], [place] [address] Mar, [facility] [address] [id number] [address] [place] [address], [place] [address] Feb, [facility] [address] [id number] [address] [place] [address], [place] [address] Feb, [facility] [address] [id number] [address] [place] [address], [place] [address] Feb, [facility] [address] [id number] [address] [place] [address], [place] [address] Feb, [facility] [address] [id number] [address] [place] [address], [place] [address] Feb, [facility] [address] [id number] [address] [place] [address], [place] [address] January, [facility] [address] [id number] [address] [place] [address], [place] [address] January, [facility] [address] [id number] [address] [place] [address], [place] [address] January, [facility] [address] [id number] [address] [place] [address], [place] [address] January, [facility] [address] [id number] [address] [place] [address], [place] [address] January, [facility] [address] [id number] [address] [place] [address], [place] [address] January, [facility] [address] [id number] [address] [place] [address], [place] [address] 24 Dec, 2011 [facility] [address] [id number] [address] [place] [address], [place] [address] 24 Dec, 2011 [facility] [address] [id number] [address] [place] [address], [place] [address] 17 Dec, 2011 [facility] [address] [id number] [address] [place] [address], [place] [address] 09 Dec, 2011 [facility] [address] [id number] [address] [place] [address], [place] [address] 06 Dec, 2011 [facility] [address] [id number] [address] [place] [address], [place] [address] 27 Nov, 2011 [facility] [address] [id number] [address] [place] [address], [place] [address] 14 Nov, 2011 [facility] [address] [id number] [address] [place] [address], [place] [address] 12 Nov, 2011 [facility] [address] [id number] [address] [place] [address], [place] [address] 07 Nov, 2011 [facility] [address] [id number] [address] [place] [address], [place] [address] 29 Oct, 2011 [facility] [address] [id number] [address] [place] [address], [place] [address] 28 Oct, 2011 [facility] [address] [id number] [address] [place] [address], [place] [address] 24 Oct, 2011 [facility] [address] [id number] [address] [place] [address], [place] [address] 13 Oct, 2011 [facility] [address] [id number] [address] [place] [address], [place] [address] 08 Oct, 2011 [facility] [address] [id number] [address] [place] [address], [place] [address] 31 Sep, 2011 [facility] [address] [id number] [address] [place] [address], [place] [address] Sep, [facility] [address] [id number] [address] [place] [address], [place] [address] Sep, [facility] [address] [id number] [address] [place] [address], [place] [address] Sep, [facility] [address] [id number] [address] [place] [address], [place] [address] Sep, [facility] [address] [id number] [address] [place] [address], [place] [address] Sep, [facility] [address] [id number] [address] [place] [address], [place] [address] Aug, [facility] [address] [id number] [address] [place] [address], [place] [address] Aug, [facility] [address] [id number] [address] [place] [address], [place] [address] Aug, [facility] [address] [id number] [address] [place] [address], [place] [address] Jul, [facility] [address] [id number] [address] [place] [address], [place] [address] Jul, [facility] [address] [id number] [address] [place] [address], [place] [address] Jul, [facility] [address] [id number] [address] [place] [address], [place] [address] Jul, [facility] [facility] [address] [id number] [address] [place] [id number] Jun, [facility] [address] [id number] [address] [place] [address], [place] [address] Jun, [facility] [address] [id number] [address] [place] [address], [place] [address] Jun, [facility] [address] [id number] [address] [place] [id number] Jun, [facility] [address] [id number] [address] [place] [id number] 10 Jun, 2011 [facility] [address] [id number] [address] [place] [address], [place] [address] 10 Jun, 2011 [facility] [address] [id number] [address] [place] [address], [place] [address] 11 Mar, 2011 [facility] [address] [id number] [address] [place] [address], [place] [address] 18 Dec, 2010 [facility] [address] [id number] [address] [place] [address], [place] [address] 11 Dec, 2010 [facility] [address] [id number] [address] [place] [address], [place] [address] 18 Nov, 2010 [facility] [address] [id number] [address] [place] [address], [place] [address] 16 Nov, 2010 [facility] [address] [id number] [address] [place] [address], [place] [address] 10 Sep, 2010 [facility] [address] [id number] [address] [place] [address], [place] [address] 31 Aug, 2010 [facility] [address] [id number] [address] [place] [address], [place] [address] 29 Aug, 2010 [facility] [address] [id number] [address] [place] [address], [place] [address] 29 Aug, 2010 [facility] [address] [id number] [address] [place] [address], [place] [address] 29 Aug, 2010 [facility] [address] [id number] [address] [place] [address], [place] [address] 27 Aug, 2010 [facility] [address] [id number] [address] [place] [address], [place] [address] 14 Aug, 2010 [facility] [address] [id number] [address] [place] [address], [place] [address] 08 Aug, 2010 [facility] [address] [id number] [address] [place] [address], [place] [address] 08 Aug, 2010 [facility] [address] [id number] [address] [place] [address], [place] [address] 07 Aug, 2010 [facility] [address] [id number] [address] [place] [address], [place] [address] Aug, [facility] [address] [id number] [address] [place] [address], [place] [address] Aug, [facility] [address] [id number] [address] [place] [address], [place] [address] Aug, [facility] [address] [id number] [address] [place] [address], [place] [address] Jul, [facility] [address] [id number] [address] [place] [address], [place] [address] Jul, [facility] [address] [id number] [address] [place] [address], [place] [address] Jul, [facility] [address] [id number] [address] [place] [address], [place] [address] Jul, [facility] [address] [id number] [address] [place] [address], [place] [address] Jul, [facility] [address] [id number] [address] [place] [address], [place] [address] Jul, [facility] [address] [id number] [address] [place] [address], [place] [address] 24 Jun, 2010 [facility] [address] [id number] [address] [place] [address], [place] [address] Jun, [facility] [address] [id number] [address] [place] [address], [place] [address] Jun, [facility] [address] [id number] [address] [place] [address], [place] [address] Jun, [facility] [address] [id number] [address] [place] [address], [place] [address] Apr, [facility] [address] [id number] [address] [place] [address], [place] [address] Mar, [facility] [address] [id number] [address] [place] [address], [place] [address] 17 Feb, 2010 [facility] [address] [id number] [address] [place] [address], [place] [address] January, [facility] [address] [id number] [address] [place] [address], [place] [address] 15 Dec, 2009 [facility] [address] [id number] [address] [place] [address], [place] [address] Nov, [facility] [address] [id number] [address] [place] [address], [place] [address] 31 Aug, 2009 [facility] [address] [id number] [address] [place] [address], [place] [address] Aug, [facility] [address] [id number] [address] [place] [address], [place] [address] Aug, [facility] [address] [id number] [address] [place] [id number] Jul, [facility] [address] [id number] [address] [place] [address], [place] [address] Jul, [facility] [address] [id number] [address] [place] [id number] Jul, [facility] [address] [id number] [address] [place] [id number] 30 Jun, 2009 [facility] [address] [id number] [address] [place] [id number] 29 Jun, 2009 [facility] [address] [id number] [address] [place] [address], [place] [address] Jun, [facility] [address] [id number] [address] [place] [id number] Jun, [facility] [address] [id number] [address] [place] [id number] Jun, [facility] [address] [id number] [address] [place] [id number] Jun, [facility] [address] [facility] [id number] [address] [place] [id number] Apr, [facility] [address] [facility] [id number] [address] [place] [id number] Apr, [facility] [address] [facility] [id number] [address] [place] [id number] Feb, [facility] [address] [facility] [id number] [address] [place] [id number] January, [facility] [address] [facility] [id number] [address] [place] [id number] Dec, IMMUNIZATIONS No Known Immunizations SOCIAL HISTORY Never Assessed REASON FOR VISIT PLAN OF CARE VITAL SIGNS Height 67 in 2014-05-24 Weight 332 lbs 2014-05-24 Temperature 97.2 degrees Fahrenheit 2014-05-24 Heart Rate 78 bpm 2014-05-24 Respiratory Rate 22 2014-05-24 Blood pressure systolic 188 mmHg 2014-05-24 Blood pressure diastolic 94 mmHg 2014-05-24 MEDICATIONS Unknown Medications RESULTS No Results PROCEDURES [...] inability to urinate 09/16/[address] [facility] inpatient mental health ea rly 1999' Hospitalization History hyperkalemia 10/2017 Hospitalization History fluid in lung
--- OUTSIDE RECORDS SUMMARY | 2020-03-01 18:00 | XMS REPORT ---
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 Driver Name Role Phone OWEN LESLY Unavailable PROBLEMS Type Condition ICD9-CM Code NRQ83-CY Code Onset Dates Condition S tatus SNOMED Code Problem Leukocytosis D72.829 Active 5774843 06 Problem Bipolar I disorder, most recent episode (or curr ent) mixed, moderate F31.62 Active 68756592 Problem Reactive airway disease J45.909 Active 727657421247 Problem Anxiety F41.9 Active 78968815 Problem Insomnia, unspecified type G47.00 Act sharon 555377205 Problem Essential hypertension I10 Active 54339207 Problem Morbid obesity E66.01 Active 26275 6002 Problem Skin cancer C44.90 Active 96727663 7 Problem DM neuro manif type II E11.49 Active 40276052 Problem Mild cognitive impairment G31.84 Acti ve 044524006 Problem Benign prostatic hyperplasia with lower urinary tract symptoms, unspecified morphology N40.1 Active 25565 6007 Problem Chronic pain G89.29 Active 3598099 1 Problem Diabetes E11.9 Active 73733555 Problem Retinal edema H35.81 Active 479381 6 Problem Anemia of chronic illness D63.8 Acti ve 034822673 Problem Falling R29.6 Active 002314561 Problem Pressure ulcer of other site, stage 3 L89.893 Active 803501564 Problem 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 Active 810771173 Problem Eye exam abnormal R93.8 Active 16 2466320 Problem Pure hypercholesterolemia E78.00 Acti ve 105418154 Problem Dysuria R30.0 Active 11022263 Problem Bipolar disorder, in partial remission, most rec ent episode depressed F31.75 Active 60070419 Problem Hypokalemia E87.6 Active 23215269 Problem Other iron deficiency anemia D50.8 A ctive 77055506 Problem Eustachian tube dysfunction, unspecified laterality H69.80 Active 54719358 Problem Primary osteoarthritis of right knee M17.11 Active 656724563802790 Problem Cough R05 Active 83117767 Problem Bipolar disorder F31.9 Active 137 02883 Problem Chronic diastolic (congestive) heart failure I50.3 2 Active 514127462 Problem Psychophysiological insomnia F51.04 A ctive 131249118 Problem Gastroesophageal reflux disease without esophagitis K21.9 Active 618194667 Problem Polyneuropathy associated with underlying disease G63 Active 565033229 Problem Other secondary acute gout, 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 0 Active 018404715 Problem Diabetic polyneuropathy associated with type 2 d iabetes mellitus E11.42 Active 66979656 Problem Chronic lymphocytic leukemia C91.10 A ctive 20792502 Problem Bilateral primary osteoarthritis of knee M17.0 Active 244648622 Problem Type 2 diabetes mellitus with diabetic neuropathy, uns pecified E11.40 Active 06761663 Problem manager terminal (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 Z79.4 Active 659164464 Problem Lymphocytosis D72.820 Active 222790 09 Problem Mood disorder F39 Active 072560 05 Problem Bipolar I disorder, most recent episode depressed, moderat e F31.32 Active 260065663 ALLERGIES No Information ENCOUNTERS Encounter Location Date Diagnosis [facility] [address] [facility] [id number] [address] [place] [phone] Dec, [facility] [address] [facility] [id number] [address] [place] [phone] Dec, [facility] [address] [facility] [id number] [address] [place] [phone] Dec, [facility] [address] [facility] [id number] [address] [place] [phone] Dec, Gastroesophageal reflux dise ase without esophagitis K21.9 and Pure hypercholesterolemia E78.00 [facility] [address] [facility] [id number] [address] [place] [phone] Dec, Mood disorder F39 [facility] [address] [facility] [id number] [address] [place] [id number] Nov, Other secondary acute gout, 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 [facility] [address] [id number] [address] [place] [phone] Nov, Gastroesophageal reflux dise ase without esophagitis K21.9 [facility] [address] [id number] [address] [place] [phone] Nov, Chronic pain G89.29 [facility] [address] [facility] [id number] [address] [place] [id number] Nov, Bipolar I disorder, most rec ent episode depressed, moderate F31.32 ; Anxiety F41.9 and Mild cognitive impairment G31.84 [facility] [address] [id number] [address] [place] [id number] Nov, [facility] [address] [facility] [id number] [address] [place] [phone] Nov, Syncope, unspecified syncope type R55 [facility] [address] [facility] [id number] [address] [place] [phone] Nov, Mood disorder F39 [facility] [address] [facility] [id number] [address] [place] [phone] Oct, Chronic pain G89.29 [facility] [address] [id number] [address] [place] [id number] 24 Oct, 2019 [facility] [address] [facility] [id number] [address] [place] [phone] Oct, Mood disorder F39 [facility] [address] [facility] [id number] [address] [place] [phone] Oct, [facility] [address] [facility] [id number] [address] [place] [id number] Oct, Bipolar disorder, in partial remission, most recent episode depressed F31.75 and Mild cognitive impairment G31.84 [facility] [address] [facility] [id number] [address] [place] [id number] 04 Oct, 2019 Mood disorder F39 [facility] [address] [facility] [id number] [address] [place] [id number] Sep, [facility] [address] [id number] [address] [place] [id number] Sep, Mood disorder F39 [facility] [address] [id number] [address] [place] [id number] Sep, Bipolar disorder, in partial remission, most recent episode depressed F31.75 and Mild cognitive impairment G31.84 [facility] [address] [id number] [address] [place] [phone] Sep, Mood disorder F39 [facility] [address] [id number] [address] [place] [id number] Sep, [facility] [address] [id number] [address] [place] [phone] Sep, Mood disorder F39 [facility] [address] [id number] [address] [place] [phone] Sep, [facility] [address] [id number] [address] [place] [phone] Aug, Mood disorder F39 [facility] [address] [id number] [address] [place] [id number] Aug, [facility] [address] [id number] [address] [place] [phone] Aug, [facility] [address] [id number] [address] [place] [phone] Aug, [facility] [address] [id number] [address] [place] [phone] Aug, [facility] [address] [id number] [address] [place] [id number] Aug, [facility] [address] [id number] [address] [place] [id number] Aug, [facility] [address] [id number] [address] [place] [phone] Aug, [facility] [address] [id number] [address] [place] [phone] Aug, Essential hypertension I10 [facility] [address] [id number] [address] [place] [phone] Aug, Bipolar disorder, in partial remission, most recent episode depressed F31.75 and Mild cognitive impairment G31.84 [facility] [address] [id number] [address] [place] [phone] Aug, Mood disorder F39 [facility] [address] [id number] [address] [place] [phone] Aug, [facility] [address] [id number] [address] [place] [id number] Aug, Bipolar disorder, in partial remission, most recent episode depressed F31.75 and Mild cognitive impairment G31.84 [facility] [address] [id number] [address] [place] [phone] Jul, Bipolar disorder, in partial remission, most recent episode depressed F31.75 and Mild cognitive impairment G31.84 [facility] [address] [id number] [address] [place] [id number] Jul, Psychophysiological insomnia F51.04 [facility] [address] [id number] [address] [place] [phone] Jul, [facility] [address] [id number] [address] [place] [phone] Jul, [facility] [address] [id number] [address] [place] [phone] Jul, [facility] [address] [id number] [address] [place] [phone] Jul, [facility] [address] [id number] [address] [place] [id number] Jul, [facility] [address] [id number] [address] [place] [id number] Jul, [place] [address] [facility] [id number] [address] [place] [phone] Jul, Bipolar disorder, in partial remission, most recent episode depressed F31.75 and Mild cognitive impairment G31.84 [place] [address] [facility] [id number] [address] [place] [id number] Jul, Chronic pain G89.29 ; Diabet es E11.9 ; Essential hypertension I10 ; Ill feeling R68.89 ; Local infection of the skin and subcutaneous tissue, unspecified L08.9 and Other injury of unspecified body region, initial encounter T14.8XXA [place] [address] [facility] [id number] [address] [place] [id number] Jun, Bipolar disorder, in partial remission, most recent episode depressed F31.75 and Mild cognitive impairment G31.84 [place] [address] [place] [id number] [address] [place] [phone] Jun, [place] [address] [place] [id number] [address] [place] [id number] Jun, Bipolar disorder, in partial remission, most recent episode depressed F31.75 and Mild cognitive impairment G31.84 [place] [address] [place] [id number] [address] [place] [phone] Jun, Psychophysiological insomnia F51.04 [place] [address] [facility] [id number] [address] [place] [id number] Jun, Psychophysiological insomnia F51.04 ; Chronic pain G89.29 ; Bipolar I disorder, most recent episode (or current) mixed, moderate F31.62 ; 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 ; Polyneuropathy associated with underlying disease G63 ; Type 2 diabetes mellitus with diabetic neuropathy, unspecified E11.40 ; manager terminal (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 Z79.4 and Hyperglycemia R73.9 [place] [address] [facility] [id number] [address] [place] [phone] Jun, Bipolar disorder, in partial remission, most recent episode depressed F31.75 and Mild cognitive impairment G31.84 [facility] [address] [id number] [address] [place] [phone] Jun, [facility] [address] [id number] [address] [place] [id number] Jun, Bipolar disorder F31.9 [facility] [address] [id number] [address] [place] [phone] May, Bipolar disorder, in partial remission, most recent episode depressed F31.75 and Mild cognitive impairment G31.84 [facility] [address] [id number] [address] [place] [phone] May, [facility] [address] [id number] [address] [place] [id number] Apr, Chronic pain G89.29 and Bipo lar disorder F31.9 [facility] [address] [id number] [address] [place] [phone] Mar, Bipolar disorder F31.9 and C hronic pain G89.29 [facility] [address] [id number] [address] [place] [phone] Feb, Bipolar disorder F31.9 [facility] [address] [id number] [address] [place] [id number] Feb, Cellulitis of right upper ex tremity L03.113 and Skin abrasion T14.8XXA [facility] [address] [id number] [address] [place] [id number] Feb, Bipolar disorder, in partial remission, most recent episode depressed F31.75 and Mild cognitive impairment G31.84 [facility] [address] [id number] [address] [place] [id number] Feb, Chronic pain G89.29 [facility] [address] [id number] [address] [place] [id number] Feb, Bipolar disorder, in partial remission, most recent episode depressed F31.75 and Mild cognitive impairment G31.84 [facility] [address] [id number] [address] [place] [id number] January, Bipolar disorder, in partial remission, most recent episode depressed F31.75 and Mild cognitive impairment G31.84 [facility] [address] [id number] [address] [place] [id number] January, Chronic pain G89.29 and Bipo lar disorder F31.9 [facility] [address] [id number] [address] [place] [id number] January, Bipolar disorder, in partial remission, most recent episode depressed F31.75 and Mild cognitive impairment G31.84 [facility] [address] [id number] [address] [place] [phone] Dec, [facility] [address] [id number] [address] [place] [address] Dec, Chronic pain G89.29 and Bipo lar disorder F31.9 [facility] [address] [id number] [address] [place] [phone] Dec, Edema of both lower extremit ies R60.0 [facility] [address] [id number] [address] [place] [phone] Dec, Bipolar disorder F31.9 [facility] [address] [id number] [address] [place] [id number] Dec, Bipolar disorder, in partial remission, most recent episode depressed F31.75 and Mild cognitive impairment G31.84 [facility] [address] [id number] [address] [place] [id number] Nov, [facility] [address] [id number] [address] [place] [phone] Nov, Chronic pain G89.29 [facility] [address] [id number] [address] [place] [id number] Nov, Bipolar disorder, in partial remission, most recent episode depressed F31.75 and Mild cognitive impairment G31.84 [facility] [address] [place] [id number] [address] [place] [id number] 18 Nov, 2018 Bipolar disorder F31.[address] [id number] 04 Nov, 2018 Encounter for Medicare annua [...] morphology N40.1 and Essential hypertension I10 [address] [address] Oct, Chronic pain G89.[address] [id number] 18 Oct, 2018 Diabetes E11.[address] [address] Oct, Bipolar I disorder, most rec ent episode (or current) mixed, moderate F31.62 and Mild cognitive impairment G31.84 [place] [id number] [address] [place] [id number] Oct, Bipolar I disorder, most rec ent episode (or current) mixed, moderate F31.62 and Mild cognitive impairment G31.84 [place] [address] [place] [id number] [address] [place] [id number] Sep, Bipolar I disorder, most rec ent episode (or current) mixed, moderate F31.62 and Mild cognitive impairment G31.84 [place] [address] [place] [id number] [address] [place] [id number] Sep, [address] [address] Sep, Diabetes E11.9 ; Hypoxia R09 .02 ; Hyperglycemia R73.9 ; Therapeutic drug monitoring Z51.81 ; BMI 50.0-59.9, adult Z68.43 and Skin cancer C44.90 [facility] [address] [id number] [address] [place] [id number] Sep, Chronic pain G89.29 [facility] [address] [id number] [address] [place] [id number] Sep, Bipolar I disorder, most rec ent episode (or current) mixed, moderate F31.62 [place] [address] [id number] [address] [place] [id number] Sep, [place] [address] [facility] [id number] [address] [place] [id number] Sep, [place] [address] [facility] [id number] [address] [place] [phone] Aug, Chronic pain G89.29 [facility] [address] [id number] [address] [place] [id number] Aug, Bipolar I disorder, most rec ent episode (or current) mixed, moderate F31.62 [place] [address] [facility] [id number] [address] [place] [id number] Aug, Bipolar I disorder, most rec ent episode (or current) mixed, moderate F31.62 and Mild cognitive impairment G31.84 [place] [address] [facility] [id number] [address] [place] [id number] Jul, [facility] [address] [facility] [id number] [address] [place] [address] Jul, Chronic pain G89.29 [facility] [address] [facility] [id number] [address] [place] [phone] Jul, Bipolar I disorder, most rec ent episode (or current) mixed, moderate F31.62 and Mild cognitive impairment G31.84 [place] [address] [facility] [id number] [address] [place] [phone] Jul, Bipolar I disorder, most rec ent episode (or current) mixed, moderate F31.62 and MCI (mild cognitive impairment) G31.84 [facility] [address] [facility] [id number] [address] [place] [id number] Jul, [facility] [address] [facility] [id number] [address] [place] [phone] Jul, [facility] [address] [facility] [id number] [address] [place] [address] Jul, Bipolar I disorder, most rec ent episode (or current) mixed, moderate F31.62 [facility] [address] [facility] [id number] [address] [place] [id number] Jul, Chronic pain G89.29 [facility] [address] [facility] [id number] [address] [place] [address] Jun, Bipolar I disorder, most rec ent episode (or current) mixed, moderate F31.62 [facility] [address] [facility] [id number] [address] [place] [address] Jun, Pre-procedure lab exam Z01.8 12 [facility] [address] [facility] [id number] [address] [place] [phone] Jun, [facility] [address] [id number] [place] [id number] Jun, [facility] [address] [facility] [id number] [address] [place] [phone] Jun, [facility] [address] [facility] [id number] [address] [place] [address] Jun, Forgetfulness R68.89 ; Pre-s yncope R55 ; Localized edema R60.0 ; Other iron deficiency anemia D50.8 and BMI 50.0-59.9, adult Z68.43 [facility] [address] [facility] [id number] [address] [place] [address] Jun, Chronic pain G89.29 [facility] [address] [facility] [id number] [address] [place] [address] Jun, Chronic pain G89.29 [facility] [address] [facility] [id number] [address] [place] [address] Jun, Bipolar I disorder, most rec ent episode (or current) mixed, moderate F31.62 [facility] [address] [facility] [id number] [address] [place] [address] May, Chronic pain G89.29 [facility] [address] [facility] [id number] [address] [place] [phone] Apr, [facility] [address] [facility] [id number] [address] [place] [id number] Apr, Chronic pain G89.29 [facility] [address] [place] [id number] [address] [place] [address] Apr, Primary osteoarthritis of ri t knee M17.11 [place] [address] [facility] [id number] [address] [place] [id number] Mar, [place] [address] [facility] [id number] [address] [place] [id number] Mar, BMI 50.0-59.9, adult Z68.43 and Bipolar disorder, in partial remission, most recent episode depressed F31.75 [place] [address] [place] [id number] [address] [place] [id number] Mar, Diabetes E11.9 ; Pure hyperc holesterolemia E78.00 ; Essential hypertension I10 ; Nausea with vomiting, unspecified R11.2 and Headache, unspecified headache type R51 [place] [address] [place] [id number] [address] [place] [id number] Mar, Bipolar I disorder, most rec ent episode (or current) mixed, moderate F31.62 [place] [address] [place] [id number] [address] [place] [id number] Mar, Bipolar I disorder, most rec ent episode (or current) mixed, moderate F31.62 [facility] [address] [facility] [id number] [address] [place] [address] Mar, Chronic pain G89.29 [facility] [address] [facility] [id number] [address] [place] [phone] Mar, Bipolar I disorder, most rec ent episode (or current) mixed, moderate F31.62 [facility] [address] [facility] [id number] [address] [place] [phone] Feb, Bipolar I disorder, most rec ent episode (or current) mixed, moderate F31.62 [place] [address] [facility] [id number] [address] [place] [id number] Feb, Chronic pain G89.29 [place] [address] [facility] [id number] [address] [place] [id number] Feb, Decubitus ulcer of right josselin t, stage 3 L89.893 and BMI 50.0-59.9, adult Z68.43 [place] [address] [facility] [id number] [address] [place] [id number] Feb, Bipolar I disorder, most rec ent episode (or current) mixed, moderate F31.62 [place] [id number] [facility] [id number] [address] [place] [id number] Feb, [place] [address] [address] [facility] [id number] [address] [place] [phone] January, [facility] [address] [facility] [id number] [address] [place] [phone] January, Chronic pain G89.29 [facility] [address] [facility] [id number] [address] [place] [phone] January, Bipolar I disorder, most rec ent episode (or current) mixed, moderate F31.62 [facility] [address] [facility] [id number] [address] [place] [id number] January, Bipolar I disorder, most rec ent episode (or current) mixed, moderate F31.62 [place] [address] [facility] [id number] [address] [place] [phone] Dec, Bipolar I disorder, most rec ent episode (or current) mixed, moderate F31.62 and BMI 50.0-59.9, adult Z68.43 [place] [address] [address] [facility] [id number] [address] [place] [phone] Dec, Bipolar I disorder, most rec ent episode (or current) mixed, moderate F31.62 [place] [address] [address] [facility] [id number] [address] [place] [id number] Dec, Chronic pain G89.29 [place] [address] [address] [place] [id number] [address] [place] [phone] Dec, DM neuro manif type II E11.4 9 ; Right flank pain R10.9 ; senior care 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 Z79.891 ; Encounter for medication monitoring Z51.81 and BMI 50.0-59.9, adult Z68.43 [place] [address] [address] [place] [id number] [address] [place] [id number] Dec, Bipolar I disorder, most rec ent episode (or current) mixed, moderate F31.62 [place] [address] [address] [place] [id number] [address] [place] [phone] Nov, Bipolar I disorder, most rec ent episode (or current) mixed, moderate F31.62 [place] [address] [address] [facility] [id number] [address] [place] [phone] Nov, Chronic pain G89.29 [place] [address] [address] [facility] [id number] [address] [place] [phone] Nov, Bipolar I disorder, most rec ent episode (or current) mixed, moderate F31.62 [place] [address] [address] [facility] [id number] [address] [place] [phone] Nov, Hypokalemia E87.6 [place] [address] [address] [place] [id number] [address] [place] [phone] Nov, Bipolar I disorder, most rec ent episode (or current) mixed, moderate F31.62 [place] [address] [address] Oct, Chronic pain G89.29 [place] [address] [address] Oct, BMI 50.0-59.9, adult Z68.43 and Bipolar I disorder, most recent episode (or current) mixed, moderate F31.62 [place] [address] [id number] Oct, Bipolar I disorder, most rec ent episode (or current) mixed, moderate F31.62 [place] [address] [id number] Oct, [place] [address] [address] Oct, Hypokalemia E87.6 [place] [address] [id number] Oct, DM neuro manif type II E11.4 9 [place] [address] [address] Oct, Bipolar I disorder, most rec ent episode (or current) mixed, moderate F31.62 [place] [address] [address] Oct, Bipolar I disorder, most rec ent episode (or current) mixed, moderate F31.62 [place] [address] [phone] 14 Oct, 2017 Hyperkalemia E87.5 ; Falling R29.6 ; BMI 50.0-59.9, adult Z68.43 and Acute left ankle pain M25.572 [place] [address] [phone] 08 Oct, 2017 DM neuro manif type II E11.4 9 [place] [address] [address] [place] [id number] [place] [phone] Oct, [facility] [address] [place] [id number] [address] [place] [id number] Sep, Chronic pain G89.29 [place] [address] [address] [place] [id number] [place] [phone] Sep, [place] [address] [address] [place] [id number] [place] [phone] Sep, Bilateral primary osteoarthr itis of knee M17.0 [place] [address] [address] [place] [id number] [place] [phone] Sep, Generalized edema R60.1 [place] [address] [address] Sep, Bipolar I disorder, most rec ent episode (or current) mixed, moderate F31.62 [place] [address] [address] Sep, Hypoxia R09.02 ; Other hyper volemia E87.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 ; Anemia of chronic illness D63.8 and BMI 50.0- 59.9, adult Z68.43 [place] [address] [address] [place] [id number] [address] [place] [id number] Sep, [place] [address] [place] [id number] [place] [phone] Sep, Bipolar I disorder, most rec ent episode (or current) mixed, moderate F31.62 [place] [address] [address] [place] [id number] [address] [place] [phone] Aug, Chronic pain G89.29 [place] [address] [address] [place] [id number] [place] [phone] Aug, Generalized edema R60.1 [facility] [address] [facility] [id number] [address] [place] [phone] Aug, [facility] [address] [facility] [id number] [address] [place] [phone] Aug, [facility] [address] [facility] [id number] [address] [place] [phone] 14 Aug, 2017 Bipolar I disorder, most rec ent episode (or current) mixed, moderate F31.62 [place] [address] [address] [facility] [id number] [address] [place] [phone] Aug, Bipolar I disorder, most rec ent episode (or current) mixed, moderate F31.62 [place] [address] [address] [place] [id number] [address] [place] [phone] Aug, Chronic pain G89.29 [place] [address] [address] [facility] [id number] [address] [place] [id number] Jul, Bipolar I disorder, most rec ent episode (or current) mixed, moderate F31.62 [place] [address] [address] [facility] [id number] [address] [place] [phone] Jul, Bipolar I disorder, most rec ent episode (or current) mixed, moderate F31.62 and BMI 60.0-69.9, adult Z68.44 [place] [address] [address] [place] [id number] [address] [place] [phone] 16 Jul, 2017 Bipolar I disorder, most rec ent episode (or current) mixed, moderate F31.62 [place] [address] [address] [facility] [id number] [address] [place] [phone] 06 Jul, 2017 Chronic pain G89.29 [facility] [address] [facility] [id number] [address] [place] [phone] 02 Jul, 2017 Bipolar I disorder, most rec ent episode (or current) mixed, moderate F31.62 [place] [address] [address] [facility] [id number] [address] [place] [phone] Jun, Polyneuropathy associated wi th underlying disease G63 and Diabetes E11.9 [facility] [address] [facility] [id number] [address] [place] [phone] 16 Jun, 2017 Bipolar I disorder, most rec ent episode (or current) mixed, moderate F31.62 [facility] [address] [facility] [id number] [address] [place] [phone] 09 Jun, 2017 Chronic pain G89.29 [facility] [address] [facility] [id number] [address] [place] [phone] May, Bipolar I disorder, most rec ent episode (or current) mixed, moderate F31.62 [place] [address] [address] [facility] [id number] [address] [place] [phone] May, Bipolar I disorder, most rec ent episode (or current) mixed, moderate F31.62 [facility] [address] [facility] [id number] [address] [place] [phone] May, Diabetic polyneuropathy asso ciated with type 2 diabetes mellitus E11.42 [facility] [address] [facility] [id number] [address] [place] [id number] 18 May, 2017 Bipolar I disorder, most rec ent episode (or current) mixed, moderate F31.62 [facility] [address] [facility] [id number] [address] [place] [phone] May, Bipolar I disorder, most rec ent episode (or current) mixed, moderate F31.62 [facility] [address] [facility] [id number] [address] [place] [phone] May, Chronic pain G89.29 [facility] [address] [facility] [id number] [address] [place] [id number] Apr, Bipolar I disorder, most rec ent episode (or current) mixed, moderate F31.62 [facility] [address] [facility] [id number] [address] [place] [phone] Apr, [facility] [address] [id number] [address] [place] [phone] Apr, Chronic pain G89.29 and DM n euro manif type II E11.49 [facility] [address] [id number] [address] [place] [phone] Apr, [facility] [address] [facility] [id number] [address] [place] [id number] Apr, Bipolar I disorder, most rec ent episode (or current) mixed, moderate F31.62 [facility] [address] [id number] [address] [place] [id number] Apr, Chronic pain G89.29 [facility] [address] [id number] [address] [place] [id number] Apr, Iliotibial band syndrome, le ft M76.32 [facility] [address] [facility] [id number] [address] [place] [id number] Apr, Bipolar I disorder, most rec ent episode (or current) mixed, moderate F31.62 [facility] [address] [id number] [address] [place] [phone] Mar, Bipolar I disorder, most rec ent episode (or current) mixed, moderate F31.62 [facility] [address] [id number] [address] [place] [phone] Mar, Bipolar I disorder, most rec ent episode (or current) mixed, moderate F31.62 [facility] [address] [id number] [address] [place] [id number] Mar, [facility] [address] [id number] [address] [place] [phone] Mar, Bipolar I disorder, most rec ent episode (or current) mixed, moderate F31.62 [facility] [address] [id number] [address] [place] [phone] Mar, Chronic pain G89.29 [facility] [address] [facility] [id number] [address] [place] [phone] Mar, Bipolar I disorder, most rec ent episode (or current) mixed, moderate F31.62 [facility] [address] [id number] [address] [place] [phone] Mar, Bipolar I disorder, most rec ent episode (or current) mixed, moderate F31.62 [facility] [address] [id number] [address] [place] [id number] Mar, Acute pain of left knee M25. 562 ; Left hip pain M25.552 ; Generalized edema R60.1 and Tongue swelling R22.0 [facility] [address] [id number] [address] [place] [phone] Mar, [facility] [address] [id number] [address] [place] [phone] Feb, Chronic pain G89.29 [facility] [address] [id number] [address] [place] [id number] Feb, Diabetes E11.9 [facility] [address] [id number] [address] [place] [id number] January, Chronic pain G89.29 [facility] [address] [id number] [address] [place] [phone] January, [facility] [address] [id number] [address] [place] [id number] January, Bipolar I disorder, most rec ent episode (or current) mixed, moderate F31.62 [facility] [address] [id number] [address] [place] [id number] Dec, Bipolar I disorder, most rec ent episode (or current) mixed, moderate F31.62 [facility] [address] [id number] [address] [place] [id number] Dec, Chronic pain G89.29 [facility] [address] [id number] [address] [place] [phone] Dec, Bipolar I disorder, most rec ent episode (or current) mixed, moderate F31.62 [facility] [address] [id number] [address] [place] [phone] Dec, Diabetes E11.9 ; Essential h ypertension I10 ; Chronic pain G89.29 and Morbid obesity E66.01 [facility] [address] [id number] [address] [place] [id number] Dec, [facility] [address] [id number] [address] [place] [phone] Dec, Bipolar I disorder, most rec ent episode (or current) mixed, moderate F31.62 [facility] [address] [id number] [address] [place] [phone] Dec, Bipolar I disorder, most rec ent episode (or current) mixed, moderate F31.62 [facility] [address] [id number] [address] [place] [id number] Nov, Chronic pain G89.29 [facility] [address] [id number] [address] [place] [phone] Nov, Bipolar I disorder, most rec ent episode (or current) mixed, moderate F31.62 [facility] [address] [id number] [address] [place] [phone] Nov, [facility] [address] [id number] [address] [place] [id number] Nov, Bipolar I disorder, most rec ent episode (or current) mixed, moderate F31.62 [facility] [address] [id number] [address] [place] [phone] Nov, Bipolar I disorder, most rec ent episode (or current) mixed, moderate F31.62 [facility] [address] [facility] [id number] [address] [place] [phone] Nov, [facility] [address] [id number] [address] [place] [phone] Nov, [facility] [address] [facility] [id number] [address] [place] [phone] Nov, [facility] [address] [facility] [id number] [address] [place] [phone] Oct, Chronic pain G89.29 [facility] [address] [facility] [id number] [address] [place] [id number] Oct, Bipolar I disorder, most rec ent episode (or current) mixed, moderate F31.62 [facility] [address] [facility] [id number] [address] [place] [phone] Oct, [facility] [address] [facility] [id number] [address] [place] [phone] Oct, Chronic pain G89.29 ; Diabet es E11.9 ; Anxiety F41.9 and 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 [facility] [address] [facility] [id number] [address] [place] [id number] Oct, [facility] [address] [facility] [id number] [address] [place] [phone] Oct, Diabetes E11.9 [facility] [address] [facility] [id number] [address] [place] [id number] Oct, Bipolar I disorder, most rec ent episode (or current) mixed, moderate F31.62 [facility] [address] [facility] [id number] [address] [place] [id number] Sep, Chronic pain G89.29 [facility] [address] [facility] [id number] [address] [place] [phone] Sep, Chronic pain G89.29 [facility] [address] [facility] [id number] [address] [place] [phone] Aug, Chronic pain G89.29 [facility] [address] [facility] [id number] [address] [place] [id number] Jul, [facility] [address] [facility] [id number] [address] [place] [id number] Jul, Diabetes E11.9 [place] [address] [address] [facility] [id number] [address] [place] [id number] Jul, Chronic pain G89.29 [place] [address] [facility] [id number] [address] [place] [id number] Jul, Bipolar I disorder, most rec ent episode (or current) mixed, moderate F31.62 [place] [address] [place] [id number] [address] [place] [id number] Jun, Bipolar I disorder, most rec ent episode (or current) mixed, moderate F31.62 [place] [address] [place] [id number] [address] [place] [phone] Jun, [place] [address] [place] [id number] [address] [place] [id number] Jun, Bipolar I disorder, most rec ent episode (or current) mixed, moderate F31.62 [place] [address] [facility] [id number] [address] [place] [id number] May, Insomnia, unspecified type G 47.00 [place] [address] [facility] [id number] [address] [place] [id number] May, Bipolar I disorder, most rec ent episode (or current) mixed, moderate F31.62 [place] [address] [place] [id number] [address] [place] [id number] 14 May, 2016 [place] [address] [place] [id number] [address] [place] [id number] May, Bipolar I disorder, most rec ent episode (or current) mixed, moderate F31.62 [place] [address] [facility] [id number] [address] [place] [id number] May, Diabetes E11.9 and Essential hypertension I10 [place] [address] [facility] [id number] [address] [place] [phone] Apr, Chronic pain G89.29 [place] [address] [place] [id number] [address] [place] [phone] Apr, Bipolar I disorder, most rec ent episode (or current) mixed, moderate F31.62 [place] [address] [place] [id number] [address] [place] [id number] Apr, [place] [address] [place] [id number] [address] [place] [id number] Apr, [place] [address] [address] Mar, Chronic pain G89.29 ; Headac he, unspecified headache type R51 ; Neuropathy G62.9 ; Pain of right hip joint M25.551 and Essential hypertension I10 [place] [address] [place] [id number] [address] [place] [phone] Mar, Chronic pain G89.29 [place] [address] [place] [id number] [address] [place] [id number] Mar, Bipolar I disorder, most rec ent episode (or current) mixed, moderate F31.62 [place] [address] [id number] Feb, Bipolar I disorder, most rec ent episode (or current) mixed, moderate F31.62 and Insomnia, unspecified type G47.00 [place] [address] [place] [id number] [address] [place] [id number] Feb, Chronic pain G89.29 [place] [address] [place] [id number] [address] [place] [id number] Feb, Bipolar I disorder, most rec ent episode (or current) mixed, moderate F31.62 [place] [address] [place] [id number] [address] [place] [id number] January, Bipolar I disorder, most rec ent episode (or current) mixed, moderate F31.62 [place] [address] [address] [place] [id number] [address] [place] [id number] January, Chronic pain G89.29 [facility] [address] [facility] [id number] [address] [place] [id number] January, Chronic pain G89.29 and Esse ntial hypertension I10 [facility] [address] [facility] [id number] [address] [place] [phone] January, Bipolar I disorder, most rec ent episode (or current) mixed, moderate F31.62 [facility] [address] [facility] [id number] [address] [place] [id number] Dec, [facility] [address] [facility] [id number] [address] [place] [phone] Dec, [facility] [address] [facility] [id number] [address] [place] [phone] Dec, [facility] [address] [facility] [id number] [address] [place] [id number] Dec, [facility] [address] [facility] [id number] [address] [place] [phone] Nov, Reactive airway disease J45. 909 [facility] [address] [facility] [id number] [address] [place] [phone] Nov, [facility] [address] [facility] [id number] [address] [place] [id number] Nov, [facility] [address] [facility] [id number] [address] [place] [id number] Nov, [facility] [address] [facility] [id number] [address] [place] [id number] Nov, [facility] [address] [place] [id number] [address] [place] [id number] Nov, Onychomycosis B35.1 ; Hammer toe M20.40 ; Hauula or callus L84 and DM neuro manif type II E11.49 [facility] [address] [facility] [id number] [address] [place] [id number] Nov, Chronic pain G89.29 ; Leukoc ytosis D72.829 and Diabetes E11.9 [place] [address] [id number] Nov, [place] [address] [id number] Oct, Bronchitis J40 [place] [address] [id number] Oct, [place] [address] [id number] Oct, [place] [address] [phone] Oct, Mastoiditis, unspecified lat erality H70.90 and Type 2 diabetes mellitus with complication E11.8 [place] [address] [phone] Sep, [place] [address] [address] Sep, Dysuria R30.0 ; Cough R05 ; Benign prostatic hyperplasia with lower urinary tract symptoms, unspecified morphology N40.1 ; Hypokalemia E87.6 and Eustachian tube dysfunction, unspecified laterality H69.80 [place] [address] [address] Sep, Moderate mixed bipolar I dis order F31.62 [place] [address] [address] Sep, Hypokalemia E87.6 [place] [address] [id number] Sep, [place] [address] [address] [address] [address] Sep, Upper respiratory tract infe ction, unspecified type J06.9 [place] [address] [place] [address] Aug, [facility] [address] [id number] [address] [place] [address] Aug, Dysuria R30.0 [facility] [address] [id number] [address] [place] [address] Aug, [facility] [address] [id number] [address] [place] [address] Jul, [facility] [address] [id number] [address] [place] [address] Jul, [facility] [address] [id number] [address] [place] [address] Jul, [facility] [address] [id number] [address] [place] [address] Jul, [facility] [address] [facility] [id number] [address] [place] [address] Jun, [facility] [address] [id number] [address] [place] [address] Jun, [facility] [address] [id number] [address] [place] [address] Jun, [facility] [address] [facility] [id number] [address] [place] [address] May, [facility] [address] [facility] [id number] [address] [place] [address] May, Bipolar I disorder, most rec ent episode (or current) mixed, moderate 296.62 [facility] [address] [id number] [address] [place] [address] 16 May, 2015 [facility] [address] [facility] [id number] [address] [place] [address] May, Bipolar I disorder, most rec ent episode (or current) mixed, moderate 296.62 and Major depressive disorder, recurrent episode, severe, specified as with psychotic behavior 296.34 [facility] [address] [id number] [address] [place] [address] May, Bipolar I disorder, most rec ent episode (or current) mixed, moderate 296.62 [facility] [address] [facility] [id number] [address] [place] [address] May, [facility] [address] [facility] [id number] [address] [place] [address] Apr, [facility] [address] [facility] [id number] [address] [place] [address] Apr, [facility] [address] [facility] [id number] [address] [place] [address] Apr, Unspecified disorder of kidn ey and ureter 593.9 and Diabetes mellitus type 2, uncontrolled 250.02 [facility] [address] [facility] [id number] [address] [place] [address] Apr, [facility] [address] [facility] [id number] [address] [place] [address] Apr, [facility] [address] [facility] [id number] [address] [place] [address] Apr, [facility] [address] [facility] [id number] [address] [place] [address] Apr, [facility] [address] [facility] [id number] [address] [place] [address] Apr, Diabetes mellitus type II, u ncontrolled 250.02 [facility] [address] [id number] [address] [place] [address] Apr, [facility] [address] [id number] [address] [place] [address] Mar, [facility] [address] [facility] [id number] [address] [place] [address] Mar, [facility] [address] [facility] [id number] [address] [place] [address] Mar, [facility] [address] [place] [id number] [address] [place] [address] Mar, Major depressive disorder, r ecurrent episode, severe, specified as with psychotic behavior 296.34 and Bipolar I disorder, most recent episode (or current) mixed, moderate 296.62 [facility] [address] [address] Mar, Diabetes 250.00 ; Anuria 788 .5 ; Nausea and vomiting 787.01 and Diarrhea 787.91 [facility] [address] [address] Mar, Diabetes 250.00 [facility] [address] [address] Mar, [facility] [address] [address] Mar, Diabetes 250.00 [facility] [address] [address] Mar, [facility] [address] [address] Mar, [facility] [address] [address] Mar, [facility] [address] [address] Mar, [facility] [address] [place] [id number] [address] [place] [address] Mar, Bipolar I disorder, most rec ent episode (or current) mixed, moderate 296.62 and Major depressive disorder, recurrent episode, severe, specified as with psychotic behavior 296.34 [place] [address] [address] Mar, Magnesium deficiency 275.2 ; Hypokalemia 276.8 ; Nausea & vomiting 787.01 and Diabetes mellitus type 2, uncontrolled 250.02 [facility] [address] [address] Feb, [place] [address] [address] Feb, Bipolar I disorder, most rec ent episode (or current) mixed, moderate 296.62 [place] [address] [address] Feb, Nausea and vomiting 787.01 ; Left elbow pain 719.42 ; Anuria 788.5 and Diabetes 250.00 [place] [address] [address] Feb, [place] [address] [address] Feb, Hypopotassemia 276.8 and Hyp okalemia 276.8 [place] [address] [address] Feb, Hypopotassemia 276.8 and Hyp okalemia 276.8 [place] [address] [address] Feb, Seborrheic keratoses 702.19 [place] [address] [address] Feb, Hypopotassemia 276.8 and Low magnesium levels 275.2 [place] [address] [address] January, [place] [address] [address] January, [place] [address] [address] January, [facility] [address] [address] January, Scalp lesion 709.9 [place] [address] [address] January, [facility] [address] [id number] [address] [place] [address] Dec, Tear of medial cartilage or meniscus of knee, current 836.0 and 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 [facility] [address] [id number] [address] [place] [address], [place] [address] Dec, [facility] [address] [id number] [address] [place] [address] Dec, [facility] [address] [id number] [address] [place] [address] Dec, Squamous cell carcinoma, 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 [facility] [address] [id number] [address] [place] [address] 14 Dec, 2014 [facility] [address] [id number] [address] [place] [address] Dec, [facility] [address] [id number] [address] [place] [address] Nov, [facility] [address] [id number] [address] [place] [address] Nov, [facility] [address] [id number] [address] [place] [address] Nov, [facility] [address] [id number] [address] [place] [address] Nov, [facility] [address] [id number] [address] [place] [address] Nov, [facility] [address] [id number] [address] [place] [address] Nov, [facility] [address] [id number] [address] [place] [address] Nov, [facility] [address] [id number] [address] [place] [address] Nov, [facility] [address] [id number] [address] [place] [address] [place] [address] Nov, 2014 [facility] [address] [id number] [address] [place] [address], [place] [address] Nov, [facility] [address] [id number] [address] [place] [address], [place] [address] Nov, [facility] [address] [id number] [address] [place] [address], [place] [address] Nov, [facility] [address] [id number] [address] [place] [address], [place] [address] Oct, 2014 [facility] [address] [id number] [address] [place] [address], [place] [address] Oct, 2014 [facility] [address] [id number] [address] [place] [address], [place] [address] Oct, 2014 [facility] [address] [id number] [address] [place] [address], [place] [address] Oct, 2014 [facility] [address] [id number] [address] [place] [address], [place] [address] Oct, 2014 [facility] [address] [id number] [address] [place] [address], [place] [address] Oct, 2014 [facility] [address] [id number] [address] [place] [address], [place] [address] Oct, [facility] [address] [id number] [address] [place] [address], [place] [address] Oct, [facility] [address] [id number] [address] [place] [address], [place] [address] Oct, [facility] [address] [id number] [address] [place] [address], [place] [address] Sep, [facility] [address] [id number] [address] [place] [address], [place] [address] Sep, [facility] [address] [id number] [address] [place] [address], [place] [address] Sep, [facility] [address] [id number] [address] [place] [address], [place] [address] Sep, [facility] [address] [id number] [address] [place] [address], [place] [address] Sep, [facility] [address] [id number] [address] [place] [address], [place] [address] Sep, [facility] [address] [id number] [address] [place] [address], [place] [address] Sep, [facility] [address] [id number] [address] [place] [address], [place] [address] Sep, [facility] [address] [id number] [address] [place] [address], [place] [address] Sep, [facility] [address] [id number] [address] [place] [address], [place] [address] Sep, [facility] [address] [id number] [address] [place] [address], [place] [address] Sep, [facility] [address] [id number] [address] [place] [address], [place] [address] Sep, [facility] [address] [id number] [address] [place] [address], [place] [address] Sep, [facility] [address] [id number] [address] [place] [address], [place] [address] Sep, [facility] [address] [id number] [address] [place] [address], [place] [address] Sep, [facility] [address] [id number] [address] [place] [address], [place] [address] Sep, [facility] [address] [id number] [address] [place] [address], [place] [address] Aug, [facility] [address] [id number] [address] [place] [address], [place] [address] Aug, [facility] [address] [id number] [address] [place] [address], [place] [address] Aug, [facility] [address] [id number] [facility] [place] [address] Aug, [facility] [address] [id number] [facility] [place] [address] Aug, [facility] [address] [id number] [facility] [address] Aug, [facility] [address] [id number] [facility] [address] Aug, [facility] [address] [id number] [address] [place] [address], [place] [address] Aug, [facility] [address] [id number] [address] [place] [address], [place] [address] Aug, [facility] [address] [id number] [address] [place] [address], [place] [address] Aug, [facility] [address] [id number] [address] [place] [address], [place] [address] Aug, [facility] [address] [place] [id number] Aug, [facility] [address] [id number] [address] [place] [address], [place] [address] Aug, [facility] [address] [id number] [address] [place] [address], [place] [address] Aug, [facility] [address] [id number] [address] [place] [address], [place] [address] Aug, [facility] [address] [id number] [address] [place] [address], [place] [address] Aug, [facility] [address] [id number] [facility] [address] Aug, [facility] [address] [id number] [facility] [address] Aug, [facility] [address] [id number] [address] [place] [address], [place] [address] 08 Aug, 2014 [facility] [address] [id number] [address] [place] [address], [place] [address] Aug, [facility] [address] [id number] [address] [place] [address], [place] [address] Aug, [facility] [address] [id number] [address] [place] [address], [place] [address] Aug, [facility] [address] [id number] [address] [place] [address], [place] [address] Aug, [facility] [address] [id number] [address] [place] [address], [place] [address] Aug, [facility] [address] [id number] [address] [place] [address], [place] [address] Aug, [facility] [address] [id number] [address] [place] [address], [place] [address] Aug, [facility] [address] [id number] [address] [place] [address], [place] [address] Aug, [facility] [address] [id number] [address] [place] [address], [place] [address] Aug, [facility] [address] [id number] [address] [place] [address], [place] [address] Aug, [facility] [address] [id number] [address] [place] [address], [place] [address] Aug, [facility] [address] [id number] [address] [place] [address], [place] [address] Jul, [facility] [address] [id number] [address] [place] [address], [place] [address] Jul, [facility] [address] [id number] [address] [place] [address], [place] [address] Jul, [facility] [address] [id number] [address] [place] [address], [place] [address] Jul, [facility] [address] [id number] [address] [place] [address], [place] [address] Jul, [facility] [address] [id number] [address] [place] [address], [place] [address] Jul, [facility] [address] [id number] [address] [place] [address], [place] [address] Jul, [facility] [address] [id number] [address] [place] [address], [place] [address] Jul, [facility] [address] [id number] [address] [place] [address], [place] [address] Jul, [facility] [address] [id number] [address] [place] [address], [place] [address] Jul, [facility] [address] [id number] [address] [place] [address], [place] [address] Jun, [facility] [address] [id number] [address] [place] [address], [place] [address] Jun, [facility] [address] [id number] [address] [place] [address], [place] [address] Jun, [facility] [address] [id number] [address] [place] [address], [place] [address] Jun, [facility] [address] [id number] [address] [place] [address], [place] [address] Jun, [facility] [address] [id number] [address] [place] [address], [place] [address] Jun, [facility] [address] [id number] [address] [place] [address], [place] [address] Jun, [facility] [address] [id number] [address] [place] [address], [place] [address] Jun, [facility] [address] [id number] [address] [place] [address], [place] [address] Jun, [facility] [address] [id number] [address] [place] [address] [place] [address] Jun, 2013 [facility] [address] [id number] [address] [place] [address], [place] [address] 29 Sep, 2013 [facility] [address] [id number] [address] [place] [address], [place] [address] 29 Sep, 2013 [facility] [address] [id number] [address] [place] [address], [place] [address] 26 Sep, 2013 [facility] [address] [id number] [address] [place] [address], [place] [address] 26 Sep, 2013 [facility] [address] [id number] [address] [place] [address], [place] [address] 17 Sep, 2013 [facility] [address] [id number] [address] [place] [address], [place] [address] 17 Sep, 2013 [facility] [address] [id number] [address] [place] [address], [place] [address] 15 Sep, 2013 [facility] [address] [id number] [address] [place] [address], [place] [address] 15 Sep, 2013 [facility] [address] [id number] [address] [place] [address], [place] [address] 15 Sep, 2013 [facility] [address] [id number] [address] [place] [address], [place] [address] 15 Sep, 2013 [facility] [address] [id number] [address] [place] [address], [place] [address] 10 Sep, 2013 [facility] [address] [id number] [address] [place] [address], [place] [address] 10 Sep, 2013 [facility] [address] [id number] [address] [place] [address], [place] [address] 09 Sep, 2013 [facility] [address] [id number] [address] [place] [address], [place] [address] 09 Sep, 2013 [facility] [address] [id number] [address] [place] [address], [place] [address] 04 Sep, 2013 [facility] [address] [id number] [facility] [place] [address] May, [facility] [address] [id number] [facility] [place] [address] Apr, [facility] [address] [id number] [facility] [place] [address] Apr, [facility] [address] [id number] [address] [place] [address], [place] [address] Apr, [facility] [address] [id number] [address] [place] [address], [place] [address] Apr, [facility] [address] [id number] [address] [place] [address], [place] [address] Apr, [facility] [address] [id number] [address] [place] [address], [place] [address] Apr, [facility] [address] [id number] [address] [place] [address], [place] [address] Apr, [facility] [address] [id number] [address] [place] [address], [place] [address] Apr, [facility] [address] [id number] [address] [place] [address], [place] [address] Apr, [facility] [address] [id number] [address] [place] [address], [place] [address] Apr, [facility] [address] [id number] [address] [place] [address], [place] [address] Apr, [facility] [address] [id number] [address] [place] [address], [place] [address] Apr, [facility] [address] [id number] [address] [place] [address], [place] [address] Apr, [facility] [address] [id number] [address] [place] [address], [place] [address] Apr, [facility] [address] [id number] [address] [place] [address], [place] [address] Apr, [facility] [address] [id number] [facility] [address] Mar, [facility] [address] [id number] [address] [place] [address], [place] [address] Mar, [facility] [address] [id number] [address] [place] [address], [place] [address] Mar, [facility] [address] [id number] [address] [place] [address], [place] [address] Mar, [facility] [address] [id number] [address] [place] [address], [place] [address] Mar, [facility] [address] [id number] [address] [place] [address], [place] [address] Mar, [facility] [address] [id number] [address] [place] [address], [place] [address] Mar, [facility] [address] [id number] [address] [place] [address], [place] [address] Mar, [facility] [address] [id number] [address] [place] [address], [place] [address] Mar, [facility] [address] [id number] [address] [place] [address], [place] [address] Mar, [facility] [address] [id number] [address] [place] [address], [place] [address] Mar, [facility] [address] [id number] [address] [place] [address], [place] [address] Mar, 2013 [facility] [address] [id number] [address] [place] [address], [place] [address] Mar, [facility] [address] [id number] [address] [place] [address], [place] [address] Mar, [facility] [address] [id number] [address] [place] [address], [place] [address] Mar, 2013 [facility] [address] [id number] [facility] [place] [address] Mar, [facility] [address] [id number] [facility] [place] [address] Mar, [facility] [address] [id number] [facility] [place] [address] Mar, [facility] [address] [id number] [address] [place] [address], [place] [address] Feb, [facility] [address] [id number] [address] [place] [address], [place] [address] Feb, [facility] [address] [id number] [address] [place] [address], [place] [address] Feb, [facility] [address] [id number] [address] [place] [address], [place] [address] Feb, [facility] [address] [id number] [address] [place] [address], [place] [address] Feb, [facility] [address] [id number] [address] [place] [address], [place] [address] Feb, [facility] [address] [id number] [address] [place] [address], [place] [address] Feb, [facility] [address] [id number] [address] [place] [address], [place] [address] Feb, [facility] [address] [id number] [address] [place] [address], [place] [address] Feb, [facility] [address] [id number] [address] [place] [address], [place] [address] Feb, [facility] [address] [id number] [address] [place] [address], [place] [address] Feb, [facility] [address] [id number] [address] [place] [address], [place] [address] Feb, [facility] [address] [id number] [address] [place] [address], [place] [address] Feb, [facility] [address] [id number] [address] [place] [address], [place] [address] Feb, [facility] [address] [id number] [address] [place] [address], [place] [address] January, [facility] [address] [id number] [address] [place] [address], [place] [address] January, [facility] [address] [id number] [address] [place] [address], [place] [address] January, [facility] [address] [id number] [address] [place] [address], [place] [address] January, [facility] [address] [id number] [address] [place] [address], [place] [address] January, [facility] [address] [id number] [address] [place] [address], [place] [address] January, [facility] [address] [id number] [address] [place] [address], [place] [address] January, [facility] [address] [id number] [address] [place] [address], [place] [address] January, [facility] [address] [id number] [address] [place] [address], [place] [address] January, [facility] [address] [id number] [address] [place] [address], [place] [address] January, [facility] [address] [id number] [address] [place] [address], [place] [address] January, [facility] [address] [id number] [address] [place] [address], [place] [address] January, [facility] [address] [id number] [address] [place] [address], [place] [address] January, [facility] [address] [id number] [address] [place] [address], [place] [address] January, [facility] [address] [id number] [address] [place] [address], [place] [address] Dec, [facility] [address] [id number] [facility] [address] Dec, [facility] [address] [id number] [address] [place] [address], [place] [address] Dec, [facility] [address] [id number] [address] [place] [address], [place] [address] Dec, [facility] [address] [id number] [address] [place] [address], [place] [address] Dec, [facility] [address] [id number] [address] [place] [address], [place] [address] Dec, [facility] [address] [id number] [address] [place] [address], [place] [address] Dec, [facility] [address] [id number] [address] [place] [address], [place] [address] Dec, [facility] [address] [id number] [address] [place] [address], [place] [address] Dec, [facility] [address] [id number] [address] [place] [address], [place] [address] Dec, [facility] [address] [id number] [address] [place] [address], [place] [address] Nov, [facility] [address] [id number] [address] [place] [address], [place] [address] Nov, [facility] [address] [id number] [address] [place] [address], [place] [address] Nov, [facility] [address] [id number] [address] [place] [address], [place] [address] Nov, [facility] [address] [id number] [address] [place] [address], [place] [address] Nov, [facility] [address] [id number] [address] [place] [address], [place] [address] Nov, [facility] [address] [id number] [address] [place] [address], [place] [address] Nov, [facility] [address] [id number] [address] [place] [address], [place] [address] Nov, [facility] [address] [id number] [address] [place] [address], [place] [address] Nov, [facility] [address] [id number] [address] [place] [address], [place] [address] Nov, [facility] [address] [id number] [address] [place] [address], [place] [address] Oct, [facility] [address] [id number] [address] [place] [address], [place] [address] Oct, [facility] [address] [id number] [address] [place] [address], [place] [address] Oct, [facility] [address] [id number] [address] [place] [address], [place] [address] Oct, [facility] [address] [id number] [address] [place] [address], [place] [address] Oct, [facility] [address] [id number] [address] [place] [address], [place] [address] Oct, [facility] [address] [id number] [address] [place] [address], [place] [address] Oct, [facility] [address] [id number] [address] [place] [address], [place] [address] Oct, [facility] [address] [id number] [address] [place] [address], [place] [address] Oct, [facility] [address] [id number] [address] [place] [address], [place] [address] Oct, [facility] [address] [id number] [address] [place] [address], [place] [address] Oct, [facility] [address] [id number] [address] [place] [address] 04 Oct, 2013 [facility] [address] [id number] [address] [place] [address], [place] [address] Oct, [facility] [address] [id number] [address] [place] [address], [place] [address] Oct, [facility] [address] [id number] [address] [place] [address], [place] [address] Sep, [facility] [address] [id number] [address] [place] [address], [place] [address] Sep, [facility] [address] [id number] [address] [place] [address], [place] [address] Sep, [facility] [address] [id number] [address] [place] [address], [place] [address] Sep, [facility] [address] [id number] [address] [place] [address], [place] [address] Sep, [facility] [address] [id number] [address] [place] [address], [place] [address] Sep, [facility] [address] [id number] [address] [place] [address], [place] [address] Sep, [facility] [address] [id number] [address] [place] [address], [place] [address] Sep, [facility] [address] [id number] [address] [place] [address], [place] [address] Sep, [facility] [address] [id number] [address] [place] [address], [place] [address] Sep, [facility] [address] [id number] [address] [place] [address], [place] [address] Aug, [facility] [address] [id number] [address] [place] [address], [place] [address] Aug, [facility] [address] [id number] [address] [place] [address], [place] [address] Jul, [facility] [address] [id number] [address] [place] [address], [place] [address] Jul, [facility] [address] [id number] [address] [place] [address], [place] [address] Jul, [facility] [address] [id number] [address] [place] [address], [place] [address] Jul, [facility] [address] [id number] [address] [place] [address], [place] [address] Jul, [facility] [address] [id number] [address] [place] [address], [place] [address] Jul, [facility] [address] [id number] [address] [place] [address], [place] [address] Jul, [facility] [address] [id number] [address] [place] [address], [place] [address] Jul, [facility] [address] [id number] [address] [place] [address], [place] [address] Jul, [facility] [address] [id number] [address] [place] [address], [place] [address] Jul, [facility] [address] [id number] [address] [place] [address], [place] [address] Jul, [facility] [address] [id number] [address] [place] [address], [place] [address] Jul, [facility] [address] [id number] [address] [place] [address], [place] [address] Jul, [facility] [address] [id number] [address] [place] [address], [place] [address] Jul, [facility] [address] [id number] [address] [place] [address], [place] [address] Jul, [facility] [address] [id number] [address] [place] [address], [place] [address] Jul, [facility] [address] [id number] [address] [address] Jul, [facility] [address] [id number] [address] [place] [address], [place] [address] Jul, [facility] [address] [id number] [address] [place] [address], [place] [address] Jul, [facility] [address] [id number] [address] [place] [address], [place] [address] Jun, 2012 [facility] [address] [id number] [address] [place] [address] Jun, 2012 [facility] [address] [id number] [address] [place] [address], [place] [address] Jun, 2012 [facility] [address] [id number] [address] [place] [address] Jun, 2012 [facility] [address] [id number] [address] [place] [address] Jun, 2012 [facility] [address] [id number] [address] [place] [address] Jun, [facility] [address] [id number] [address] [place] [address] Jun, [facility] [address] [id number] [address] [place] [address] Jun, [facility] [address] [id number] [address] [place] [address] Jun, [facility] [address] [id number] [address] [place] [address] Jun, [facility] [address] [id number] [address] [place] [address], [place] [address] Jun, [facility] [address] [id number] [address] [place] [address] May, [facility] [address] [id number] [address] [place] [address] May, [facility] [address] [id number] [address] [place] [address], [place] [address] 19 May, 2012 [facility] [address] [id number] [address] [place] [address], [place] [address] 17 May, 2012 [facility] [address] [id number] [address] [place] [address], [place] [address] 11 May, 2013 [facility] [address] [id number] [address] [place] [address], [place] [address] 10 May, 2012 [facility] [address] [id number] [address] [place] [address], [place] [address] 09 May, 2013 [facility] [address] [id number] [address] [place] [address], [place] [address] 05 May, 2013 [facility] [address] [id number] [address] [place] [address], [place] [address] Apr, [facility] [address] [id number] [address] [place] [address], [place] [address] Apr, [facility] [address] [id number] [address] [place] [address], [place] [address] Apr, [facility] [address] [id number] [address] [place] [address], [place] [address] Apr, [facility] [address] [id number] [address] [place] [address], [place] [address] Apr, [facility] [address] [id number] [address] [place] [address], [place] [address] Mar, [facility] [address] [id number] [address] [place] [address], [place] [address] Mar, [facility] [address] [id number] [address] [place] [address], [place] [address] Mar, [facility] [address] [id number] [address] [place] [address], [place] [address] Mar, [facility] [address] [id number] [address] [place] [address], [place] [address] Mar, [facility] [address] [id number] [address] [place] [address], [place] [address] Mar, [facility] [address] [id number] [address] [place] [address], [place] [address] Mar, [facility] [address] [id number] [address] [place] [address], [place] [address] Mar, [facility] [address] [id number] [address] [place] [address], [place] [address] Feb, [facility] [address] [id number] [address] [place] [address], [place] [address] Feb, [facility] [address] [id number] [address] [place] [address], [place] [address] January, [facility] [address] [id number] [address] [place] [address], [place] [address] January, [facility] [address] [id number] [address] [place] [address], [place] [address] Dec, [facility] [address] [id number] [address] [place] [address], [place] [address] Dec, [facility] [address] [id number] [address] [place] [address], [place] [address] Nov, [facility] [address] [id number] [address] [place] [address], [place] [address] Nov, [facility] [address] [id number] [address] [place] [address], [place] [address] Nov, [facility] [address] [id number] [address] [place] [address], [place] [address] Nov, [facility] [address] [id number] [address] [place] [address], [place] [address] Oct, [facility] [address] [id number] [address] [place] [address], [place] [address] Oct, [facility] [address] [id number] [address] [place] [address], [place] [address] 26 Oct, 2012 [facility] [address] [id number] [address] [place] [address], [place] [address] 26 Oct, 2012 [facility] [address] [id number] [address] [place] [address], [place] [address] 16 Oct, 2012 [facility] [address] [id number] [address] [place] [address], [place] [address] 14 Oct, 2012 [facility] [address] [id number] [address] [place] [address], [place] [address] 08 Oct, 2012 [facility] [address] [id number] [address] [place] [address], [place] [address] 07 Oct, 2012 [facility] [address] [id number] [address] [place] [address], [place] [address] 03 Oct, 2012 [facility] [address] [id number] [address] [place] [address], [place] [address] 30 Sep, 2012 [facility] [address] [id number] [address] [place] [address], [place] [address] Sep, [facility] [address] [id number] [address] [place] [address], [place] [address] Sep, [facility] [address] [id number] [address] [place] [address], [place] [address] Sep, [facility] [address] [id number] [address] [place] [address], [place] [address] Sep, [facility] [address] [id number] [address] [place] [address], [place] [address] Sep, [facility] [address] [id number] [address] [place] [address], [place] [address] 09 Sep, 2012 [facility] [address] [id number] [address] [place] [address], [place] [address] 08 Sep, 2012 [facility] [address] [id number] [address] [place] [address], [place] [address] Aug, [facility] [address] [id number] [address] [place] [address], [place] [address] Aug, [facility] [address] [id number] [address] [place] [address], [place] [address] Aug, [facility] [address] [id number] [address] [place] [address], [place] [address] Aug, [facility] [address] [id number] [address] [place] [address], [place] [address] Aug, [facility] [address] [id number] [address] [place] [address], [place] [address] Aug, [facility] [address] [id number] [address] [place] [address], [place] [address] Aug, [facility] [address] [id number] [address] [place] [address], [place] [address] Aug, [facility] [address] [id number] [address] [place] [address], [place] [address] Jul, [facility] [address] [id number] [address] [place] [address], [place] [address] Jul, [facility] [address] [id number] [address] [place] [address], [place] [address] Jul, [facility] [address] [id number] [address] [place] [address], [place] [address] Jul, [facility] [address] [id number] [address] [place] [address] Jul, [facility] [address] [id number] [address] [place] [address], [place] [address] Jul, [facility] [address] [id number] [address] [place] [address], [place] [address] Jun, [facility] [address] [id number] [address] [place] [address], [place] [address] Jun, [facility] [address] [id number] [address] [place] [address] Jun, [facility] [address] [id number] [address] [place] [address], [place] [address] 23 Jun, 2012 [facility] [address] [id number] [address] [place] [address], [place] [address] Jun, [facility] [address] [id number] [address] [place] [address], [place] [address] 19 Jun, 2012 [facility] [address] [id number] [address] [place] [address], [place] [address] 19 Jun, 2012 [facility] [address] [id number] [address] [place] [address], [place] [address] 10 Jun, 2012 [facility] [address] [id number] [address] [place] [address], [place] [address] 10 Jun, 2012 [facility] [address] [id number] [address] [place] [address], [place] [address] 26 May, 2012 [facility] [address] [id number] [address] [place] [address], [place] [address] 24 May, 2012 [facility] [address] [id number] [address] [place] [address], [place] [address] 18 May, 2012 [facility] [address] [id number] [address] [place] [address], [place] [address] 30 Apr, 2012 [facility] [address] [id number] [address] [place] [address], [place] [address] 29 Apr, 2012 [facility] [address] [id number] [address] [place] [address], [place] [address] 18 Apr, 2012 [facility] [address] [id number] [address] [place] [address], [place] [address] 14 Apr, 2012 [facility] [address] [id number] [address] [place] [address], [place] [address] 10 Apr, 2012 [facility] [address] [id number] [address] [place] [address], [place] [address] 07 Apr, 2012 [facility] [address] [id number] [facility] [place] [address] Mar, [facility] [address] [id number] [address] [place] [address], [place] [address] Mar, [facility] [address] [id number] [address] [place] [address], [place] [address] Mar, [facility] [address] [id number] [address] [place] [address], [place] [address] Mar, [facility] [address] [id number] [address] [place] [address], [place] [address] Feb, [facility] [address] [id number] [address] [place] [address], [place] [address] Feb, [facility] [address] [id number] [address] [place] [address], [place] [address] Feb, [facility] [address] [id number] [address] [place] [address], [place] [address] Feb, [facility] [address] [id number] [address] [place] [address], [place] [address] Feb, [facility] [address] [id number] [address] [place] [address], [place] [address] January, [facility] [address] [id number] [address] [place] [address], [place] [address] January, [facility] [address] [id number] [address] [place] [address], [place] [address] January, [facility] [address] [id number] [address] [place] [address], [place] [address] January, [facility] [address] [id number] [address] [place] [address], [place] [address] January, [facility] [address] [id number] [address] [place] [address], [place] [address] January, [facility] [address] [id number] [address] [place] [address], [place] [address] 24 Dec, 2011 [facility] [address] [id number] [address] [place] [address], [place] [address] 24 Dec, 2011 [facility] [address] [id number] [address] [place] [address], [place] [address] 17 Dec, 2011 [facility] [address] [id number] [address] [place] [address], [place] [address] 09 Dec, 2011 [facility] [address] [id number] [address] [place] [address], [place] [address] 06 Dec, 2011 [facility] [address] [id number] [address] [place] [address], [place] [address] 27 Nov, 2011 [facility] [address] [id number] [address] [place] [address], [place] [address] 14 Nov, 2011 [facility] [address] [id number] [address] [place] [address], [place] [address] Nov, [facility] [address] [id number] [address] [place] [address], [place] [address] 07 Nov, 2011 [facility] [address] [id number] [address] [place] [address], [place] [address] 29 Oct, 2011 [facility] [address] [id number] [address] [place] [address], [place] [address] 28 Oct, 2011 [facility] [address] [id number] [address] [place] [address], [place] [address] 24 Oct, 2011 [facility] [address] [id number] [address] [place] [address], [place] [address] 13 Oct, 2011 [facility] [address] [id number] [address] [place] [address], [place] [address] 08 Oct, 2011 [facility] [address] [id number] [address] [place] [address], [place] [address] 31 Sep, 2011 [facility] [address] [id number] [address] [place] [address], [place] [address] 30 Sep, 2011 [facility] [address] [id number] [address] [place] [address], [place] [address] Sep, [facility] [address] [id number] [address] [place] [address], [place] [address] Sep, [facility] [address] [id number] [address] [place] [address], [place] [address] Sep, [facility] [address] [id number] [address] [place] [address], [place] [address] Sep, [facility] [address] [id number] [address] [place] [address], [place] [address] Aug, [facility] [address] [id number] [address] [place] [address], [place] [address] Aug, [facility] [address] [id number] [address] [place] [address], [place] [address] Aug, [facility] [address] [id number] [address] [place] [address], [place] [address] Jul, [facility] [address] [id number] [address] [place] [address], [place] [address] Jul, [facility] [address] [id number] [address] [place] [address], [place] [address] Jul, [facility] [address] [id number] [address] [place] [address], [place] [address] Jul, [facility] [address] [id number] [address] [place] [address], [place] [address] Jun, [facility] [address] [id number] [address] [place] [address], [place] [address] Jun, [facility] [address] [id number] [address] [place] [address], [place] [address] Jun, [facility] [address] [id number] [address] [place] [address], [place] [address] Jun, [facility] [address] [id number] [address] [place] [address], [place] [address] Jun, [facility] [address] [id number] [address] [place] [address], [place] [address] 10 Jun, 2011 [facility] [address] [id number] [address] [place] [address], [place] [address] 11 Mar, 2011 [facility] [address] [id number] [address] [place] [address], [place] [address] 18 Dec, 2010 [facility] [address] [id number] [address] [place] [address], [place] [address] 11 Dec, 2010 [facility] [address] [id number] [address] [place] [address], [place] [address] 18 Nov, 2010 [facility] [address] [id number] [address] [place] [address], [place] [address] 16 Nov, 2010 [facility] [address] [id number] [address] [place] [address], [place] [address] 10 Sep, 2010 [facility] [address] [id number] [address] [place] [address], [place] [address] 31 Aug, 2010 [facility] [address] [id number] [address] [place] [address], [place] [address] 29 Aug, 2010 [facility] [address] [id number] [address] [place] [address], [place] [address] 29 Aug, 2010 [facility] [address] [id number] [address] [place] [address], [place] [address] 29 Aug, 2010 [facility] [address] [id number] [address] [place] [address], [place] [address] 27 Aug, 2010 [facility] [address] [id number] [address] [place] [address], [place] [address] 14 Aug, 2010 [facility] [address] [id number] [address] [place] [address], [place] [address] 08 Aug, 2010 [facility] [address] [id number] [address] [place] [address], [place] [address] 08 Aug, 2010 [facility] [address] [id number] [address] [place] [address] [place] [address] 07 Aug, 2010 [facility] [address] [id number] [address] [place] [address], [place] [address] Aug, [facility] [address] [id number] [address] [place] [address] Aug, [facility] [address] [id number] [address] [place] [address], [place] [address] Aug, [facility] [address] [id number] [address] [place] [address], [place] [address] Jul, [facility] [address] [id number] [address] [place] [address], [place] [address] Jul, [facility] [address] [id number] [address] [place] [address], [place] [address] Jul, [facility] [address] [id number] [address] [place] [address], [place] [address] Jul, [facility] [address] [id number] [address] [place] [address], [place] [address] Jul, [facility] [address] [id number] [address] [place] [address], [place] [address] Jul, [facility] [address] [id number] [address] [place] [address], [place] [address] Jun, [facility] [address] [id number] [address] [place] [address], [place] [address] Jun, [facility] [address] [id number] [address] [place] [address] Jun, [facility] [address] [id number] [address] [place] [address] Jun, [facility] [address] [id number] [address] [place] [address] Apr, [facility] [address] [id number] [address] [place] [address] Mar, [facility] [address] [id number] [address] [place] [address], [place] [address] 17 Feb, 2010 [facility] [address] [id number] [address] [place] [address], [place] [address] January, [facility] [address] [id number] [address] [place] [address], [place] [address] 15 Dec, 2009 [facility] [address] [id number] [address] [place] [address], [place] [address] Nov, [facility] [address] [id number] [address] [place] [address], [place] [address] 31 Aug, 2009 [facility] [address] [id number] [address] [place] [address], [place] [address] Aug, [facility] [address] [id number] [address] [place] [address], [place] [address] Aug, [facility] [address] [id number] [address] [place] [address], [place] [address] Jul, [facility] [address] [id number] [address] [place] [address], [place] [address] Jul, [facility] [address] [id number] [address] [place] [address], [place] [address] Jul, [facility] [address] [id number] [address] [place] [address], [place] [address] 30 Jun, 2009 [facility] [address] [id number] [address] [place] [address], [place] [address] 29 Jun, 2009 [facility] [address] [id number] [address] [place] [address], [place] [address] Jun, [facility] [address] [id number] [address] [place] [address], [place] [address] 22 Jun, 2009 [facility] [address] [id number] [address] [place] [address] Jun, [facility] [address] [id number] [address] [place] [address] Jun, [facility] [address] [facility] [id number] [address] [place] [address] Apr, [facility] [address] [facility] [id number] [address] [place] [address] Apr, [facility] [address] [facility] [id number] [address] [place] [address] Feb, [facility] [address] [facility] [id number] [address] [place] [address] January, [facility] [address] [facility] [id number] [address] [place] [address] Dec, IMMUNIZATIONS No Known Immunizations SOCIAL HISTORY Never Assessed REASON FOR VISIT PLAN OF CARE VITAL SIGNS Height 67 in 2014-05-02 Weight 333.25 lbs 2014-05-02 Temperature 98.6 degrees Fahrenheit 2014-05-02 Heart Rate 61 bpm 2014-05-02 Respiratory Rate 24 2014-05-02 Blood pressure systolic 144 mmHg 2014-05-02 Blood pressure diastolic 92 mmHg 2014-05-02 MEDICATIONS Unknown Medications RESULTS No Results PROCEDURES Procedure Date Ordered Result Body Site STREP A ASSAY W/OPTIC May 02, 2014 MEASURE BLOOD OXYGEN LEVEL May 02, 2014 INSTRUCTIONS MEDICATIONS ADMINISTERED No Known Medications MEDICAL (GENERAL) HISTORY Type Description Date Medical History type II diabetes Medical History coronary artery disease stress test Medical History chronic obstructive pulmonary disease (C OPD) Medical History gastroesophageal reflux disease (GERD) Medical History acute renal failure Medical History erectile dysfunction Medical History hyperlipidemia Medical History obesity Medical History skin cancer-basal cell R mandaen (removed ) Medical History Arthritis Medical History [...] History inability to urinate 09/16/15 Hospitalization History [facility] mental health ea rly 1999's Hospitalization History hyperkalemia 10/2017 Hospitalization History fluid in lung
--- OUTSIDE RECORDS SUMMARY | 2020-03-01 18:01 | XMS REPORT ---
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 Name Role Phone NOEMI WASHBURN Unavailable PROBLEMS Type Condition ICD9-CM Code TMF01-GC Code Onset Dates Condition S tatus SNOMED Code Problem Leukocytosis D72.829 Active 9405187 06 Problem Bipolar I disorder, most recent episode (or curr ent) mixed, moderate F31.62 Active 01928687 Problem Reactive airway disease J45.909 Active 514478878499 Problem Anxiety F41.9 Active 36491794 Problem Insomnia, unspecified type G47.00 Act sharon 152244531 Problem Essential hypertension I10 Active 61812714 Problem Morbid obesity E66.01 Active 68655 6002 Problem Skin cancer C44.90 Active 64441257 7 Problem DM neuro manif type II E11.49 Active 64740839 Problem Mild cognitive impairment G31.84 Acti ve 005975529 Problem Benign prostatic hyperplasia with lower urinary tract symptoms, unspecified morphology N40.1 Active 07457 6007 Problem Chronic pain G89.29 Active 6867463 1 Problem Diabetes E11.9 Active 57441870 Problem Retinal edema H35.81 Active 386903 6 Problem Anemia of chronic illness D63.8 Acti ve 514348755 Problem Falling R29.6 Active 962662242 Problem Pressure ulcer of other site, stage 3 L89.893 Active 712607187 Problem 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 Active 662596561 Problem Eye exam abnormal R93.8 Active 16 6049197 Problem Pure hypercholesterolemia E78.00 Acti ve 658793938 Problem Dysuria R30.0 Active 83394911 Problem Bipolar disorder, in partial remission, most rec ent episode depressed F31.75 Active 03780172 Problem Hypokalemia E87.6 Active 13992220 Problem Other iron deficiency anemia D50.8 A ctive 57272939 Problem Eustachian tube dysfunction, unspecified laterality H69.80 Active 35234628 Problem Primary osteoarthritis of right knee M17.11 Active 583761000391609 Problem Cough R05 Active 13532322 Problem Bipolar disorder F31.9 Active 137 61555 Problem Chronic diastolic (congestive) heart failure I50.3 2 Active 018439497 Problem Psychophysiological insomnia F51.04 A ctive 765721474 Problem Gastroesophageal reflux disease without esophagitis K21.9 Active 042069926 Problem Polyneuropathy associated with underlying disease G63 Active 241035911 Problem Other secondary acute gout, 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 0 Active 940478917 Problem Diabetic polyneuropathy associated with type 2 d iabetes mellitus E11.42 Active 40997429 Problem Chronic lymphocytic leukemia C91.10 A ctive 62014887 Problem Bilateral primary osteoarthritis of knee M17.0 Active 062363637 Problem Type 2 diabetes mellitus with diabetic neuropathy, uns pecified E11.40 Active 52472738 Problem intermediate (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 Z79.4 Active 120524507 Problem Lymphocytosis D72.820 Active 265935 09 Problem Mood disorder F39 Active 330271 05 Problem Bipolar I disorder, most recent episode depressed, moderat e F31.32 Active [id number] ALLERGIES No Information ENCOUNTERS Encounter Location Date Diagnosis [facility] [address] [facility] [id number] [address] [place] [phone] Dec, [facility] [address] [facility] [id number] [address] [place] [phone] Dec, [facility] [address] [facility] [id number] [address] [place] [id number] Dec, [facility] [address] [facility] [id number] [address] [place] [phone] Dec, Mood disorder F39 [facility] [address] [facility] [id number] [address] [place] [id number] Nov, Other secondary acute gout, 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 [facility] [address] [facility] [id number] [address] [place] [id number] 25 Nov, 2019 Gastroesophageal reflux dise ase without esophagitis K21.9 [facility] [address] [id number] [address] [place] [phone] Nov, Chronic pain G89.29 [facility] [address] [id number] [address] [place] [id number] Nov, Bipolar I disorder, most rec ent episode depressed, moderate F31.32 ; Anxiety F41.9 and Mild cognitive impairment G31.84 [facility] [address] [facility] [id number] [address] [place] [phone] Nov, [facility] [address] [id number] [address] [place] [id number] Nov, Syncope, unspecified syncope type R55 [facility] [address] [id number] [address] [place] [phone] Nov, Mood disorder F39 [facility] [address] [facility] [id number] [address] [place] [id number] Oct, Chronic pain G89.29 [facility] [address] [id number] [address] [place] [phone] Oct, [facility] [address] [id number] [address] [place] [phone] Oct, Mood disorder F39 [facility] [address] [facility] [id number] [address] [place] [id number] Oct, [facility] [address] [facility] [id number] [address] [place] [id number] Oct, Bipolar disorder, in partial remission, most recent episode depressed F31.75 and Mild cognitive impairment G31.84 [facility] [address] [id number] [address] [place] [id number] Oct, Mood disorder F39 [facility] [address] [facility] [id number] [address] [place] [phone] Sep, [facility] [address] [facility] [id number] [address] [place] [id number] Sep, Mood disorder F39 [facility] [address] [id number] [address] [place] [id number] 13 Sep, 2019 Bipolar disorder, in partial remission, most recent episode depressed F31.75 and Mild cognitive impairment G31.84 [facility] [address] [id number] [address] [place] [id number] 06 Sep, 2019 Mood disorder F39 [facility] [address] [id number] [address] [place] [phone] Sep, [facility] [address] [id number] [address] [place] [id number] Sep, Mood disorder F39 [facility] [address] [id number] [address] [place] [phone] Sep, [facility] [address] [id number] [address] [place] [phone] Aug, Mood disorder F39 [facility] [address] [id number] [address] [place] [phone] Aug, [facility] [address] [id number] [address] [place] [id number] Aug, [facility] [address] [id number] [address] [place] [phone] Aug, [facility] [address] [id number] [address] [place] [id number] Aug, [facility] [address] [id number] [address] [place] [id number] Aug, [facility] [address] [id number] [address] [place] [phone] Aug, [facility] [address] [id number] [address] [place] [phone] Aug, [facility] [address] [id number] [address] [place] [id number] Aug, Essential hypertension I10 [facility] [address] [id number] [address] [place] [id number] Aug, Bipolar disorder, in partial remission, most recent episode depressed F31.75 and Mild cognitive impairment G31.84 [facility] [address] [id number] [address] [place] [id number] Aug, Mood disorder F39 [facility] [address] [id number] [address] [place] [phone] Aug, [facility] [address] [id number] [address] [place] [phone] Aug, Bipolar disorder, in partial remission, most recent episode depressed F31.75 and Mild cognitive impairment G31.84 [facility] [address] [id number] [address] [place] [id number] Jul, Bipolar disorder, in partial remission, most recent episode depressed F31.75 and Mild cognitive impairment G31.84 [facility] [address] [id number] [address] [place] [phone] Jul, Psychophysiological insomnia F51.04 [facility] [address] [id number] [address] [place] [id number] Jul, [facility] [address] [id number] [address] [place] [id number] Jul, [facility] [address] [id number] [address] [place] [id number] Jul, [facility] [address] [id number] [address] [place] [id number] Jul, [facility] [address] [id number] [address] [place] [id number] Jul, [facility] [address] [id number] [address] [place] [id number] Jul, [facility] [address] [id number] [address] [place] [id number] Jul, Bipolar disorder, in partial remission, most recent episode depressed F31.75 and Mild cognitive impairment G31.84 [place] [address] [facility] [id number] [address] [place] [id number] Jul, Chronic pain G89.29 ; Diabet es E11.9 ; Essential hypertension I10 ; Ill feeling R68.89 ; Local infection of the skin and subcutaneous tissue, unspecified L08.9 and Other injury of unspecified body region, initial encounter T14.8XXA [place] [address] [facility] [id number] [address] [place] [phone] Jun, Bipolar disorder, in partial remission, most recent episode depressed F31.75 and Mild cognitive impairment G31.84 [place] [address] [facility] [id number] [address] [place] [phone] Jun, [place] [address] [facility] [id number] [address] [place] [phone] Jun, Bipolar disorder, in partial remission, most recent episode depressed F31.75 and Mild cognitive impairment G31.84 [place] [address] [facility] [id number] [address] [place] [phone] Jun, Psychophysiological insomnia F51.04 [place] [address] [facility] [id number] [address] [place] [id number] Jun, Psychophysiological insomnia F51.04 ; Chronic pain G89.29 ; Bipolar I disorder, most recent episode (or current) mixed, moderate F31.62 ; 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 ; Polyneuropathy associated with underlying disease G63 ; Type 2 diabetes mellitus with diabetic neuropathy, unspecified E11.40 ; intermediate (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 Z79.4 and Hyperglycemia R73.9 [place] [address] [facility] [id number] [address] [place] [phone] Jun, Bipolar disorder, in partial remission, most recent episode depressed F31.75 and Mild cognitive impairment G31.84 [place] [address] [facility] [id number] [address] [place] [id number] Jun, [place] [address] [id number] [address] [place] [phone] Jun, Bipolar disorder F31.9 [facility] [address] [facility] [id number] [address] [place] [phone] May, Bipolar disorder, in partial remission, most recent episode depressed F31.75 and Mild cognitive impairment G31.84 [facility] [address] [id number] [address] [place] [phone] May, [facility] [address] [facility] [id number] [address] [place] [phone] Apr, Chronic pain G89.29 and Bipo lar disorder F31.9 [facility] [address] [facility] [id number] [address] [place] [phone] Mar, Bipolar disorder F31.9 and C hronic pain G89.29 [facility] [address] [facility] [id number] [address] [place] [phone] Feb, Bipolar disorder F31.9 [facility] [address] [id number] [address] [place] [id number] Feb, Cellulitis of right upper ex tremity L03.113 and Skin abrasion T14.8XXA [facility] [address] [id number] [address] [place] [id number] Feb, Bipolar disorder, in partial remission, most recent episode depressed F31.75 and Mild cognitive impairment G31.84 [facility] [address] [facility] [id number] [address] [place] [phone] Feb, Chronic pain G89.29 [facility] [address] [id number] [address] [place] [id number] Feb, Bipolar disorder, in partial remission, most recent episode depressed F31.75 and Mild cognitive impairment G31.84 [facility] [address] [facility] [id number] [address] [place] [phone] January, Bipolar disorder, in partial remission, most recent episode depressed F31.75 and Mild cognitive impairment G31.84 [facility] [address] [id number] [address] [place] [id number] 16 Jan, 2019 Chronic pain G89.29 and Bipo lar disorder F31.9 [facility] [address] [id number] [address] [place] [phone] January, Bipolar disorder, in partial remission, most recent episode depressed F31.75 and Mild cognitive impairment G31.84 [facility] [address] [id number] [address] [place] [id number] Dec, [facility] [address] [id number] [address] [place] [id number] Dec, Chronic pain G89.29 and Bipo lar disorder F31.9 [facility] [address] [id number] [address] [place] [phone] Dec, Edema of both lower extremit ies R60.0 [facility] [address] [id number] [address] [place] [id number] Dec, Bipolar disorder F31.9 [facility] [address] [id number] [address] [place] [id number] Dec, Bipolar disorder, in partial remission, most recent episode depressed F31.75 and Mild cognitive impairment G31.84 [facility] [address] [id number] [address] [place] [id number] Nov, [facility] [address] [id number] [address] [place] [id number] Nov, Chronic pain G89.29 [facility] [address] [id number] [address] [place] [phone] Nov, Bipolar disorder, in partial remission, most recent episode depressed F31.75 and Mild cognitive impairment G31.84 [facility] [address] [id number] [address] [place] [id number] Nov, Bipolar disorder F31.9 [facility] [address] [id number] [address] [place] [id number] 04 Nov, 2018 Encounter for Medicare annua [...] morphology N40.1 and Essential hypertension I10 [address] [id number] 21 Oct, 2018 Chronic pain G89.[address] [id number] 18 Oct, 2018 Diabetes E11.9 [place] [id number] [address] [place] [id number] Oct, Bipolar I disorder, most rec ent episode (or current) mixed, moderate F31.62 and Mild cognitive impairment G31.84 [place] [id number] [address] [place] [id number] 06 Oct, 2018 Bipolar I disorder, most rec ent episode (or current) mixed, moderate F31.62 and Mild cognitive impairment G31.84 [place] [id number] [address] [place] [id number] Sep, Bipolar I disorder, most rec ent episode (or current) mixed, moderate F31.62 and Mild cognitive impairment G31.84 [place] [id number] [address] [place] [id number] Sep, [address] [id number] Sep, Diabetes E11.9 ; Hypoxia R09 .02 ; Hyperglycemia R73.9 ; Therapeutic drug monitoring Z51.81 ; BMI 50.0-59.9, adult Z68.43 and Skin cancer C44.90 [facility] [address] [id number] [address] [place] [id number] Sep, Chronic pain G89.29 [facility] [address] [id number] [address] [place] [id number] Sep, Bipolar I disorder, most rec ent episode (or current) mixed, moderate F31.62 [facility] [address] [id number] [address] [place] [phone] Sep, [facility] [address] [id number] [address] [place] [id number] Sep, [facility] [address] [id number] [address] [place] [id number] Aug, Chronic pain G89.29 [facility] [address] [id number] [address] [place] [phone] Aug, Bipolar I disorder, most rec ent episode (or current) mixed, moderate F31.62 [facility] [address] [id number] [address] [place] [phone] Aug, Bipolar I disorder, most rec ent episode (or current) mixed, moderate F31.62 and Mild cognitive impairment G31.84 [facility] [address] [id number] [address] [place] [phone] Jul, [facility] [address] [id number] [address] [place] [id number] Jul, Chronic pain G89.29 [facility] [address] [id number] [address] [place] [id number] Jul, Bipolar I disorder, most rec ent episode (or current) mixed, moderate F31.62 and Mild cognitive impairment G31.84 [facility] [address] [id number] [address] [place] [id number] Jul, Bipolar I disorder, most rec ent episode (or current) mixed, moderate F31.62 and MCI (mild cognitive impairment) G31.84 [facility] [address] [id number] [address] [place] [phone] Jul, [facility] [address] [id number] [address] [place] [id number] Jul, [facility] [address] [id number] [address] [place] [id number] Jul, Bipolar I disorder, most rec ent episode (or current) mixed, moderate F31.62 [facility] [address] [id number] [address] [place] [id number] Jul, Chronic pain G89.29 [facility] [address] [id number] [address] [place] [id number] Jun, Bipolar I disorder, most rec ent episode (or current) mixed, moderate F31.62 [facility] [address] [facility] [id number] [address] [place] [phone] Jun, Pre-procedure lab exam Z01.8 12 [facility] [address] [id number] [address] [place] [phone] Jun, [facility] [address] [id number] [place] [id number] Jun, [facility] [address] [facility] [id number] [address] [place] [phone] Jun, [facility] [address] [facility] [id number] [address] [place] [phone] Jun, Forgetfulness R68.89 ; Pre-s yncope R55 ; Localized edema R60.0 ; Other iron deficiency anemia D50.8 and BMI 50.0-59.9, adult Z68.43 [facility] [address] [id number] [address] [place] [id number] Jun, Chronic pain G89.29 [facility] [address] [facility] [id number] [address] [place] [phone] Jun, Chronic pain G89.29 [place] [address] [place] [id number] [address] [place] [phone] Jun, Bipolar I disorder, most rec ent episode (or current) mixed, moderate F31.62 [place] [address] [id number] 07 May, 2018 Chronic pain G89.29 [place] [address] [address] Apr, [place] [address] [address] Apr, Chronic pain G89.29 [place] [address] [address] Apr, Primary osteoarthritis of ri ght knee M17.11 [place] [address] [address] Mar, [place] [address] [address] Mar, BMI 50.0-59.9, adult Z68.43 and Bipolar disorder, in partial remission, most recent episode depressed F31.75 [place] [address] [address] Mar, Diabetes E11.9 ; Pure hyperc holesterolemia E78.00 ; Essential hypertension I10 ; Nausea with vomiting, unspecified R11.2 and Headache, unspecified headache type R51 [place] [address] [address] Mar, Bipolar I disorder, most rec ent episode (or current) mixed, moderate F31.62 [place] [address] [address] Mar, Bipolar I disorder, most rec ent episode (or current) mixed, moderate F31.62 [place] [address] [address] Mar, Chronic pain G89.29 [facility] [address] [id number] [address] [place] [id number] Mar, Bipolar I disorder, most rec ent episode (or current) mixed, moderate F31.62 [facility] [address] [id number] [address] [place] [id number] Feb, Bipolar I disorder, most rec ent episode (or current) mixed, moderate F31.62 [facility] [address] [facility] [id number] [address] [place] [id number] Feb, Chronic pain G89.29 [facility] [address] [id number] [address] [place] [id number] Feb, Decubitus ulcer of right josselin t, stage 3 L89.893 and BMI 50.0-59.9, adult Z68.43 [facility] [address] [facility] [id number] [address] [place] [id number] Feb, Bipolar I disorder, most rec ent episode (or current) mixed, moderate F31.62 [facility] [address] [facility] [id number] [address] [place] [id number] Feb, [facility] [address] [facility] [id number] [address] [place] [id number] January, [facility] [address] [facility] [id number] [address] [place] [id number] January, Chronic pain G89.29 [facility] [address] [facility] [id number] [address] [place] [id number] January, Bipolar I disorder, most rec ent episode (or current) mixed, moderate F31.62 [facility] [address] [facility] [id number] [address] [place] [id number] January, Bipolar I disorder, most rec ent episode (or current) mixed, moderate F31.62 [facility] [address] [facility] [id number] [address] [place] [id number] Dec, Bipolar I disorder, most rec ent episode (or current) mixed, moderate F31.62 and BMI 50.0-59.9, adult Z68.43 [place] [address] [address] [facility] [id number] [address] [place] [id number] Dec, Bipolar I disorder, most rec ent episode (or current) mixed, moderate F31.62 [place] [address] [address] [place] [id number] [address] [place] [phone] Dec, Chronic pain G89.29 [place] [address] [address] [facility] [id number] [address] [place] [phone] Dec, DM neuro manif type II E11.4 9 ; Right flank pain R10.9 ; 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 ; Encounter for medication monitoring Z51.81 and BMI 50.0-59.9, adult Z68.43 [place] [address] [place] [id number] [address] [place] [id number] Dec, Bipolar I disorder, most rec ent episode (or current) mixed, moderate F31.62 [place] [address] [address] [place] [id number] [address] [place] [phone] Nov, Bipolar I disorder, most rec ent episode (or current) mixed, moderate F31.62 [place] [address] [address] [place] [id number] [address] [place] [address] Nov, Chronic pain G89.29 [place] [address] [address] [place] [id number] [address] [place] [id number] Nov, Bipolar I disorder, most rec ent episode (or current) mixed, moderate F31.62 [place] [address] [address] [facility] [id number] [address] [place] [phone] Nov, Hypokalemia E87.6 [place] [address] [address] [facility] [id number] [address] [place] [phone] Nov, Bipolar I disorder, most rec ent episode (or current) mixed, moderate F31.62 [place] [address] [address] [facility] [id number] [address] [place] [phone] Oct, Chronic pain G89.29 [facility] [address] [facility] [id number] [address] [place] [phone] Oct, BMI 50.0-59.9, adult Z68.43 and Bipolar I disorder, most recent episode (or current) mixed, moderate F31.62 [place] [address] [address] [place] [id number] [address] [place] [id number] Oct, Bipolar I disorder, most rec ent episode (or current) mixed, moderate F31.62 [place] [address] [address] [facility] [id number] [address] [place] [phone] Oct, [place] [address] [place] [id number] [place] [phone] Oct, Hypokalemia E87.6 [place] [address] [place] [id number] [place] [phone] Oct, DM neuro manif type II E11.4 9 [place] [id number] [facility] [id number] [address] [place] [id number] Oct, Bipolar I disorder, most rec ent episode (or current) mixed, moderate F31.62 [place] [address] [facility] [id number] [address] [place] [id number] Oct, Bipolar I disorder, most rec ent episode (or current) mixed, moderate F31.62 [place] [address] [address] [place] [id number] [address] [place] [id number] 14 Oct, 2017 Hyperkalemia E87.5 ; Falling R29.6 ; BMI 50.0-59.9, adult Z68.43 and Acute left ankle pain M25.572 [facility] [address] [place] [id number] [address] [place] [id number] Oct, DM neuro manif type II E11.4 9 [facility] [address] [place] [id number] [address] [place] [id number] Oct, [place] [id number] [place] [phone] Sep, Chronic pain G89.29 [place] [address] [place] [id number] [address] [place] [phone] Sep, [place] [address] [place] [id number] [place] [phone] Sep, Bilateral primary osteoarthr itis of knee M17.0 [place] [address] [address] [place] [id number] [place] [phone] Sep, Generalized edema R60.1 [place] [address] [address] Sep, Bipolar I disorder, most rec ent episode (or current) mixed, moderate F31.62 [place] [address] [address] Sep, Hypoxia R09.02 ; Other hyper volemia E87.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 ; Anemia of chronic illness D63.8 and BMI 50.0- 59.9, adult Z68.43 [place] [address] [address] [place] [id number] [address] [place] [address] Sep, [place] [address] [address] Sep, Bipolar I disorder, most rec ent episode (or current) mixed, moderate F31.62 [place] [address] [address] [place] [id number] [address] [place] [address] Aug, Chronic pain G89.29 [place] [address] [place] [id number] [address] [place] [phone] Aug, Generalized edema R60.1 [place] [address] [place] [id number] [address] [place] [id number] Aug, [facility] [address] [place] [id number] [address] [place] [id number] Aug, [facility] [address] [facility] [id number] [address] [place] [phone] Aug, Bipolar I disorder, most rec ent episode (or current) mixed, moderate F31.62 [place] [address] [place] [id number] [address] [place] [id number] Aug, Bipolar I disorder, most rec ent episode (or current) mixed, moderate F31.62 [place] [address] [address] [facility] [id number] [address] [place] [id number] Aug, Chronic pain G89.29 [place] [address] [place] [id number] [address] [place] [id number] Jul, Bipolar I disorder, most rec ent episode (or current) mixed, moderate F31.62 [place] [address] [address] [place] [id number] [address] [place] [id number] Jul, Bipolar I disorder, most rec ent episode (or current) mixed, moderate F31.62 and BMI 60.0-69.9, adult Z68.44 [place] [address] [place] [id number] [address] [place] [id number] 16 Jul, 2017 Bipolar I disorder, most rec ent episode (or current) mixed, moderate F31.62 [place] [address] [place] [id number] [address] [place] [id number] Jul, Chronic pain G89.29 [place] [address] [place] [id number] [address] [place] [id number] 02 Jul, 2017 Bipolar I disorder, most rec ent episode (or current) mixed, moderate F31.62 [place] [address] [place] [id number] [address] [place] [phone] Jun, Polyneuropathy associated wi th underlying disease G63 and Diabetes E11.9 [place] [address] [address] [facility] [id number] [address] [place] [id number] 16 Jun, 2017 Bipolar I disorder, most rec ent episode (or current) mixed, moderate F31.62 [facility] [address] [facility] [id number] [address] [place] [phone] 09 Jun, 2017 Chronic pain G89.29 [facility] [address] [facility] [id number] [address] [place] [phone] May, Bipolar I disorder, most rec ent episode (or current) mixed, moderate F31.62 [facility] [address] [facility] [id number] [address] [place] [phone] 21 May, 2017 Bipolar I disorder, most rec ent episode (or current) mixed, moderate F31.62 [facility] [address] [place] [id number] [address] [place] [phone] May, Diabetic polyneuropathy asso ciated with type 2 diabetes mellitus E11.42 [place] [address] [address] [facility] [id number] [address] [place] [phone] May, Bipolar I disorder, most rec ent episode (or current) mixed, moderate F31.62 [place] [address] [facility] [id number] [address] [place] [id number] 13 May, 2017 Bipolar I disorder, most rec ent episode (or current) mixed, moderate F31.62 [place] [address] [place] [id number] [address] [place] [id number] May, Chronic pain G89.29 [facility] [address] [facility] [id number] [address] [place] [phone] Apr, Bipolar I disorder, most rec ent episode (or current) mixed, moderate F31.62 [facility] [address] [facility] [id number] [address] [place] [phone] Apr, [facility] [address] [facility] [id number] [address] [place] [phone] Apr, Chronic pain G89.29 and DM n euro manif type II E11.49 [facility] [address] [id number] [address] [place] [phone] Apr, [facility] [address] [id number] [address] [place] [phone] Apr, Bipolar I disorder, most rec ent episode (or current) mixed, moderate F31.62 [facility] [address] [id number] [address] [place] [phone] Apr, Chronic pain G89.29 [facility] [address] [id number] [address] [place] [id number] Apr, Iliotibial band syndrome, le ft M76.32 [facility] [address] [id number] [address] [place] [phone] Apr, Bipolar I disorder, most rec ent episode (or current) mixed, moderate F31.62 [facility] [address] [id number] [address] [place] [phone] Mar, Bipolar I disorder, most rec ent episode (or current) mixed, moderate F31.62 [facility] [address] [id number] [address] [place] [id number] Mar, Bipolar I disorder, most rec ent episode (or current) mixed, moderate F31.62 [facility] [address] [id number] [address] [place] [phone] Mar, [facility] [address] [id number] [address] [place] [id number] Mar, Bipolar I disorder, most rec ent episode (or current) mixed, moderate F31.62 [facility] [address] [id number] [address] [place] [id number] Mar, Chronic pain G89.29 [facility] [address] [id number] [address] [place] [phone] Mar, Bipolar I disorder, most rec ent episode (or current) mixed, moderate F31.62 [facility] [address] [id number] [address] [place] [phone] Mar, Bipolar I disorder, most rec ent episode (or current) mixed, moderate F31.62 [facility] [address] [facility] [id number] [address] [place] [phone] Mar, Acute pain of left knee M25. 562 ; Left hip pain M25.552 ; Generalized edema R60.1 and Tongue swelling R22.0 [facility] [address] [facility] [id number] [address] [place] [phone] Mar, [facility] [address] [facility] [id number] [address] [place] [phone] Feb, Chronic pain G89.29 [facility] [address] [facility] [id number] [address] [place] [id number] Feb, Diabetes E11.9 [facility] [address] [facility] [id number] [address] [place] [id number] January, Chronic pain G89.29 [facility] [address] [facility] [id number] [address] [place] [id number] January, [facility] [address] [facility] [id number] [address] [place] [id number] January, Bipolar I disorder, most rec ent episode (or current) mixed, moderate F31.62 [facility] [address] [facility] [id number] [address] [place] [id number] Dec, Bipolar I disorder, most rec ent episode (or current) mixed, moderate F31.62 [facility] [address] [facility] [id number] [address] [place] [id number] Dec, Chronic pain G89.29 [facility] [address] [facility] [id number] [address] [place] [id number] Dec, Bipolar I disorder, most rec ent episode (or current) mixed, moderate F31.62 [facility] [address] [facility] [id number] [address] [place] [id number] Dec, Diabetes E11.9 ; Essential h ypertension I10 ; Chronic pain G89.29 and Morbid obesity E66.01 [facility] [address] [id number] [address] [place] [phone] Dec, [facility] [address] [facility] [id number] [address] [place] [phone] Dec, Bipolar I disorder, most rec ent episode (or current) mixed, moderate F31.62 [facility] [address] [id number] [address] [place] [phone] Dec, Bipolar I disorder, most rec ent episode (or current) mixed, moderate F31.62 [facility] [address] [id number] [address] [place] [address] Nov, Chronic pain G89.29 [facility] [address] [facility] [id number] [address] [place] [phone] Nov, Bipolar I disorder, most rec ent episode (or current) mixed, moderate F31.62 [facility] [address] [id number] [address] [place] [phone] Nov, [facility] [address] [facility] [id number] [address] [place] [phone] Nov, Bipolar I disorder, most rec ent episode (or current) mixed, moderate F31.62 [facility] [address] [facility] [id number] [address] [place] [id number] Nov, Bipolar I disorder, most rec ent episode (or current) mixed, moderate F31.62 [facility] [address] [id number] [address] [place] [phone] Nov, [facility] [address] [facility] [id number] [address] [place] [phone] Nov, [facility] [address] [facility] [id number] [address] [place] [phone] Nov, [facility] [address] [facility] [id number] [address] [place] [phone] Oct, Chronic pain G89.29 [facility] [address] [id number] [address] [place] [id number] Oct, Bipolar I disorder, most rec ent episode (or current) mixed, moderate F31.62 [facility] [address] [facility] [id number] [address] [place] [phone] Oct, [facility] [address] [facility] [id number] [address] [place] [id number] Oct, Chronic pain G89.29 ; Diabet es E11.9 ; Anxiety F41.9 and 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 [facility] [address] [facility] [id number] [address] [place] [phone] Oct, [facility] [address] [facility] [id number] [address] [place] [phone] Oct, Diabetes E11.9 [facility] [address] [facility] [id number] [address] [place] [id number] Oct, Bipolar I disorder, most rec ent episode (or current) mixed, moderate F31.62 [facility] [address] [facility] [id number] [address] [place] [id number] Sep, Chronic pain G89.29 [facility] [address] [facility] [id number] [address] [place] [id number] Sep, Chronic pain G89.29 [facility] [address] [facility] [id number] [address] [place] [id number] Aug, Chronic pain G89.29 [facility] [address] [facility] [id number] [address] [place] [id number] Jul, [facility] [address] [facility] [id number] [address] [place] [phone] Jul, Diabetes E11.9 [facility] [address] [facility] [id number] [address] [place] [id number] Jul, Chronic pain G89.29 [facility] [address] [facility] [id number] [address] [place] [phone] Jul, Bipolar I disorder, most rec ent episode (or current) mixed, moderate F31.62 [facility] [address] [facility] [id number] [address] [place] [id number] Jun, Bipolar I disorder, most rec ent episode (or current) mixed, moderate F31.62 [facility] [address] [facility] [id number] [address] [place] [phone] Jun, [facility] [address] [facility] [id number] [address] [place] [id number] Jun, Bipolar I disorder, most rec ent episode (or current) mixed, moderate F31.62 [place] [address] [facility] [id number] [address] [place] [phone] May, Insomnia, unspecified type G 47.00 [facility] [address] [facility] [id number] [address] [place] [phone] May, Bipolar I disorder, most rec ent episode (or current) mixed, moderate F31.62 [place] [address] [facility] [id number] [address] [place] [id number] 14 May, 2016 [facility] [address] [place] [id number] [address] [place] [phone] May, Bipolar I disorder, most rec ent episode (or current) mixed, moderate F31.62 [facility] [address] [facility] [id number] [address] [place] [phone] May, Diabetes E11.9 and Essential hypertension I10 [facility] [address] [facility] [id number] [address] [place] [phone] Apr, Chronic pain G89.29 [facility] [address] [facility] [id number] [address] [place] [id number] Apr, Bipolar I disorder, most rec ent episode (or current) mixed, moderate F31.62 [place] [id number] [facility] [id number] [address] [place] [phone] Apr, [place] [address] [facility] [id number] [address] [place] [phone] Apr, [place] [address] [facility] [id number] [address] [place] [address] Mar, Chronic pain G89.29 ; Headac he, unspecified headache type R51 ; Neuropathy G62.9 ; Pain of right hip joint M25.551 and Essential hypertension I10 [place] [address] [facility] [id number] [address] [place] [id number] Mar, Chronic pain G89.29 [place] [address] [facility] [id number] [address] [place] [phone] Mar, Bipolar I disorder, most rec ent episode (or current) mixed, moderate F31.62 [place] [address] [facility] [id number] [address] [place] [phone] Feb, Bipolar I disorder, most rec ent episode (or current) mixed, moderate F31.62 and Insomnia, unspecified type G47.00 [place] [address] [facility] [id number] [address] [place] [id number] Feb, Chronic pain G89.29 [place] [address] [facility] [id number] [address] [place] [id number] Feb, Bipolar I disorder, most rec ent episode (or current) mixed, moderate F31.62 [place] [address] [facility] [id number] [address] [place] [phone] January, Bipolar I disorder, most rec ent episode (or current) mixed, moderate F31.62 [place] [address] [facility] [id number] [address] [place] [address] January, Chronic pain G89.29 [place] [address] [facility] [id number] [address] [place] [phone] January, Chronic pain G89.29 and Esse ntial hypertension I10 [facility] [address] [address] January, Bipolar I disorder, most rec ent episode (or current) mixed, moderate F31.62 [facility] [address] [place] [id number] [address] [place] [id number] Dec, [facility] [address] [place] [id number] [place] [phone] Dec, [facility] [address] [place] [id number] [address] [place] [phone] Dec, [facility] [address] [phone] Dec, [facility] [address] [address] Nov, Reactive airway disease J45. 909 [facility] [address] [address] Nov, [facility] [address] [address] Nov, [facility] [address] [address] Nov, [facility] [address] [address] Nov, [facility] [address] [address] Nov, Onychomycosis B35.1 ; Hammer toe M20.40 ; [place] or callus L84 and DM neuro manif type II E11.49 [facility] [address] [place] [id number] [place] [address] Nov, Chronic pain G89.29 ; Leukoc ytosis D72.829 and Diabetes E11.9 [facility] [address] [address] Nov, [facility] [address] [address] Oct, Bronchitis J40 [place] [address] [address] Oct, [facility] [address] [address] Oct, [place] [address] [address] Oct, Mastoiditis, unspecified lat erality H70.90 and Type 2 diabetes mellitus with complication E11.8 [place] [address] [address] Sep, [place] [address] [address] Sep, Dysuria R30.0 ; Cough R05 ; Benign prostatic hyperplasia with lower urinary tract symptoms, unspecified morphology N40.1 ; Hypokalemia E87.6 and Eustachian tube dysfunction, unspecified laterality H69.80 [place] [address] [address] Sep, Moderate mixed bipolar I dis order F31.62 [place] [address] [address] Sep, Hypokalemia E87.6 [place] [address] [address] Sep, [place] [address] [address] Sep, Upper respiratory tract infe ction, unspecified type J06.9 [place] [address] [address] [place] [id number] [place] [id number] Aug, [place] [address] [address] Aug, Dysuria R30.0 [facility] [address] [id number] [address] [place] [id number] Aug, [facility] [address] [id number] [address] [place] [id number] Jul, [facility] [address] [id number] [address] [place] [id number] Jul, [facility] [address] [id number] [address] [place] [id number] Jul, [facility] [address] [id number] [address] [place] [id number] Jul, [facility] [address] [id number] [address] [place] [phone] Jun, [facility] [address] [id number] [address] [place] [id number] Jun, [facility] [address] [id number] [address] [place] [phone] Jun, [facility] [address] [id number] [address] [place] [id number] May, [facility] [address] [id number] [address] [place] [address] May, Bipolar I disorder, most rec ent episode (or current) mixed, moderate 296.62 [facility] [address] [id number] [address] [place] [id number] 16 May, 2015 [facility] [address] [id number] [address] [place] [phone] May, Bipolar I disorder, most rec ent episode (or current) mixed, moderate 296.62 and Major depressive disorder, recurrent episode, severe, specified as with psychotic behavior 296.34 [facility] [address] [id number] [address] [place] [phone] May, Bipolar I disorder, most rec ent episode (or current) mixed, moderate 296.62 [facility] [address] [id number] [address] [place] [phone] May, [facility] [address] [id number] [address] [place] [id number] Apr, [facility] [address] [id number] [address] [place] [phone] Apr, [facility] [address] [id number] [address] [place] [id number] Apr, Unspecified disorder of kidn ey and ureter 593.9 and Diabetes mellitus type 2, uncontrolled 250.02 [facility] [address] [id number] [address] [place] [phone] Apr, [facility] [address] [id number] [address] [place] [phone] Apr, [facility] [address] [id number] [address] [place] [phone] Apr, [facility] [address] [id number] [address] [place] [id number] Apr, [facility] [address] [id number] [address] [place] [phone] Apr, Diabetes mellitus type II, u ncontrolled 250.02 [facility] [address] [id number] [address] [place] [phone] Apr, [facility] [address] [id number] [address] [place] [phone] Mar, [facility] [address] [id number] [address] [place] [id number] Mar, [facility] [address] [id number] [address] [place] [phone] Mar, [facility] [address] [id number] [address] [place] [phone] Mar, Major depressive disorder, r ecurrent episode, severe, specified as with psychotic behavior 296.34 and Bipolar I disorder, most recent episode (or current) mixed, moderate 296.62 [facility] [address] [address] Mar, Diabetes 250.00 ; Anuria 788 .5 ; Nausea and vomiting 787.01 and Diarrhea 787.91 [facility] [id number] [place] [id number] Mar, Diabetes 250.00 [facility] [address] [place] [id number] [place] [address] Mar, [facility] [address] [address] Mar, Diabetes 250.00 [facility] [address] [place] [place] [id number] [place] [phone] Mar, [facility] [address] [id number] Mar, [facility] [address] [place] [place] [id number] [address] [place] [phone] Mar, [facility] [address] [address] Mar, [facility] [address] [place] [place] [id number] [address] [place] [id number] Mar, Bipolar I disorder, most rec ent episode (or current) mixed, moderate 296.62 and Major depressive disorder, recurrent episode, severe, specified as with psychotic behavior 296.34 [facility] [address] [place] [id number] [address] [place] [address] Mar, Magnesium deficiency 275.2 ; Hypokalemia 276.8 ; Nausea & vomiting 787.01 and Diabetes mellitus type 2, uncontrolled 250.02 [facility] [address] [place] [place] [id number] [address] [place] [phone] Feb, [facility] [address] [address] Feb, Bipolar I disorder, most rec ent episode (or current) mixed, moderate 296.62 [place] [address] [address] Feb, Nausea and vomiting 787.01 ; Left elbow pain 719.42 ; Anuria 788.5 and Diabetes 250.[address] [address] Feb, [place] [address] [address] Feb, Hypopotassemia 276.8 and Hyp okalemia 276.[address] [address] Feb, Hypopotassemia 276.8 and Hyp okalemia 276.[address] [address] Feb, Seborrheic keratoses 702.19 [place] [address] [address] Feb, Hypopotassemia 276.8 and Low magnesium levels 275.2 [place] [address] [address] January, [place] [address] [address] January, [place] [address] [address] January, [place] [address] [place] [id number] [place] [phone] January, Scalp lesion 709.9 [place] [address] [address] January, [place] [address] [address] Dec, Tear of medial cartilage or meniscus of knee, current 836.0 and 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 [facility] [address] [id number] [address] [place] [address], [place] [address] Dec, [facility] [address] [id number] [address] [place] [address], [place] [address] Dec, [facility] [address] [id number] [address] [place] [address], [place] [address] 28 Dec, 2014 Squamous cell carcinoma, 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 [facility] [address] [id number] [address] [place] [address], [place] [address] 14 Dec, 2014 [facility] [address] [id number] [address] [place] [address], [place] [address] Dec, [facility] [address] [id number] [address] [place] [address], [place] [address] Nov, [facility] [address] [id number] [address] [place] [address], [place] [address] Nov, [facility] [address] [id number] [address] [place] [address], [place] [address] Nov, [facility] [address] [id number] [address] [place] [address], [place] [address] Nov, [facility] [address] [id number] [address] [place] [phone] Nov, [facility] [address] [id number] [address] [place] [address], [place] [address] Nov, [facility] [address] [id number] [address] [place] [id number] Nov, [facility] [address] [id number] [address] [place] [address], [place] [address] Nov, [facility] [address] [id number] [address] [place] [address], [place] [address] Nov, [facility] [address] [id number] [address] [place] [id number] Nov, [facility] [address] [id number] [address] [place] [address], [place] [address] Nov, [facility] [address] [id number] [address] [place] [address], [place] [address] Nov, [facility] [address] [id number] [address] [place] [address], [place] [address] Oct, 2014 [facility] [address] [id number] [address] [place] [address], [place] [address] Oct, 2014 [facility] [address] [id number] [address] [place] [address], [place] [address] Oct, [facility] [address] [id number] [address] [place] [address], [place] [address] Oct, 2014 [facility] [address] [id number] [address] [place] [address], [place] [address] Oct, [facility] [address] [id number] [address] [place] [address], [place] [address] Oct, [facility] [address] [id number] [address] [place] [address], [place] [address] Oct, [facility] [address] [id number] [address] [place] [address], [place] [address] Oct, [facility] [address] [id number] [address] [place] [address], [place] [address] Oct, [facility] [address] [id number] [address] [place] [address], [place] [address] Sep, [facility] [address] [id number] [address] [place] [address], [place] [address] Sep, [facility] [address] [id number] [address] [place] [address], [place] [address] Sep, [facility] [address] [id number] [address] [place] [address], [place] [address] Sep, [facility] [address] [id number] [address] [place] [address], [place] [address] Sep, [facility] [address] [id number] [address] [place] [address], [place] [address] Sep, [facility] [address] [id number] [address] [place] [address], [place] [address] Sep, [facility] [address] [id number] [address] [place] [address], [place] [address] Sep, [facility] [address] [id number] [address] [place] [address], [place] [address] Sep, [facility] [address] [id number] [address] [place] [address], [place] [address] Sep, [facility] [address] [id number] [address] [place] [address], [place] [address] Sep, [facility] [address] [id number] [address] [place] [address], [place] [address] Sep, [facility] [address] [id number] [address] [place] [address], [place] [address] Sep, [facility] [address] [id number] [address] [place] [address], [place] [address] Sep, [facility] [address] [id number] [address] [place] [address], [place] [address] Sep, [facility] [address] [id number] [address] [place] [address], [place] [address] Sep, [facility] [address] [id number] [address] [place] [address], [place] [address] Aug, [facility] [address] [id number] [address] [place] [address], [place] [address] Aug, [facility] [address] [id number] [address] [place] [address], [place] [address] Aug, [facility] [address] [id number] [address] [place] [address], [place] [address] Aug, [facility] [address] [id number] [facility] [address] Aug, [facility] [address] [id number] [address] [address] Aug, [facility] [address] [id number] [address] [address] Aug, [facility] [address] [id number] [address] [address] Aug, [facility] [address] [id number] [address] [address] Aug, [facility] [address] [id number] [address] [place] [address], [place] [address] Aug, [facility] [address] [id number] [address] [address] Aug, [facility] [address] [place] [id number] Aug, [facility] [address] [id number] [address] [place] [address], [place] [address] Aug, [facility] [address] [id number] [address] [place] [address], [place] [address] Aug, [facility] [address] [id number] [address] [place] [address], [place] [address] Aug, [facility] [address] [id number] [address] [place] [address], [place] [address] Aug, [facility] [address] [id number] [address] [place] [address], [place] [address] Aug, [facility] [address] [id number] [address] [place] [address], [place] [address] Aug, [facility] [address] [id number] [address] [place] [address], [place] [address] Aug, [facility] [address] [id number] [address] [place] [address], [place] [address] Aug, [facility] [address] [id number] [address] [place] [address], [place] [address] Aug, [facility] [address] [id number] [address] [place] [address], [place] [address] Aug, [facility] [address] [id number] [address] [place] [address], [place] [address] Aug, [facility] [address] [id number] [address] [place] [address], [place] [address] Aug, [facility] [address] [id number] [address] [place] [address], [place] [address] Aug, [facility] [address] [id number] [address] [place] [address], [place] [address] Aug, [facility] [address] [id number] [address] [place] [address], [place] [address] Aug, [facility] [address] [id number] [address] [place] [address], [place] [address] Aug, [facility] [address] [id number] [address] [place] [address], [place] [address] Aug, [facility] [address] [id number] [address] [place] [address], [place] [address] Aug, [facility] [address] [id number] [address] [place] [address], [place] [address] Jul, [facility] [address] [id number] [address] [place] [address], [place] [address] Jul, [facility] [address] [id number] [address] [place] [address], [place] [address] Jul, [facility] [address] [id number] [address] [place] [address], [place] [address] Jul, [facility] [address] [id number] [address] [place] [address], [place] [address] Jul, [facility] [address] [id number] [address] [place] [address], [place] [address] Jul, [facility] [address] [id number] [address] [place] [address], [place] [address] Jul, [facility] [address] [id number] [address] [place] [address], [place] [address] Jul, [facility] [address] [id number] [address] [place] [address], [place] [address] Jul, [facility] [address] [id number] [address] [place] [address], [place] [address] Jul, [facility] [address] [id number] [address] [place] [address], [place] [address] Jun, [facility] [address] [id number] [address] [place] [address], [place] [address] Jun, [facility] [address] [id number] [address] [place] [address], [place] [address] Jun, [facility] [address] [id number] [address] [place] [address], [place] [address] Jun, [facility] [address] [id number] [address] [place] [address], [place] [address] Jun, [facility] [address] [id number] [address] [place] [address], [place] [address] Jun, [facility] [address] [id number] [address] [place] [address], [place] [address] Jun, [facility] [address] [id number] [address] [place] [address], [place] [address] Jun, [facility] [address] [id number] [address] [place] [address], [place] [address] Jun, [facility] [address] [id number] [address] [place] [address], [place] [address] Jun, [facility] [address] [id number] [address] [place] [address], [place] [address] May, [facility] [address] [id number] [address] [place] [address], [place] [address] 29 Sep, 2013 [facility] [address] [id number] [address] [place] [address], [place] [address] 26 Sep, 2013 [facility] [address] [id number] [address] [place] [address], [place] [address] 26 Sep, 2013 [facility] [address] [id number] [address] [place] [address], [place] [address] 17 Sep, 2013 [facility] [address] [id number] [address] [place] [address], [place] [address] 17 Sep, 2013 [facility] [address] [id number] [address] [place] [address], [place] [address] 15 Sep, 2013 [facility] [address] [id number] [address] [place] [address], [place] [address] 15 Sep, 2013 [facility] [address] [id number] [address] [place] [address], [place] [address] 15 Sep, 2013 [facility] [address] [id number] [address] [place] [address], [place] [address] 15 Sep, 2013 [facility] [address] [id number] [address] [place] [address], [place] [address] 10 Sep, 2013 [facility] [address] [id number] [address] [place] [address], [place] [address] 10 Sep, 2013 [facility] [address] [id number] [address] [place] [address], [place] [address] 09 Sep, 2013 [facility] [address] [id number] [address] [place] [address], [place] [address] 09 Sep, 2013 [facility] [address] [id number] [address] [place] [address], [place] [address] 04 Sep, 2013 [facility] [address] [id number] [address] [place] [address], [place] [address] 04 Sep, 2013 [facility] [address] [id number] [address] [place] [address], [place] [address] Apr, [facility] [address] [id number] [address] [place] [address], [place] [address] Apr, [facility] [address] [id number] [address] [place] [address], [place] [address] Apr, [facility] [address] [id number] [address] [place] [address], [place] [address] Apr, [facility] [address] [id number] [address] [place] [address], [place] [address] Apr, [facility] [address] [id number] [address] [place] [address], [place] [address] Apr, [facility] [address] [id number] [address] [place] [address], [place] [address] Apr, [facility] [address] [id number] [address] [place] [address], [place] [address] Apr, [facility] [address] [id number] [address] [place] [address], [place] [address] Apr, [facility] [address] [id number] [address] [place] [address], [place] [address] Apr, [facility] [address] [id number] [address] [place] [address], [place] [address] Apr, [facility] [address] [id number] [address] [place] [address], [place] [address] Apr, [facility] [address] [id number] [address] [place] [address], [place] [address] Apr, [facility] [address] [id number] [address] [place] [address], [place] [address] Apr, [facility] [address] [id number] [address] [place] [address], [place] [address] Apr, [facility] [address] [id number] [address] [place] [address], [place] [address] Mar, [facility] [address] [id number] [facility] [address] Mar, 2013 [facility] [address] [id number] [facility] [address] Mar, 2013 [facility] [address] [id number] [facility] [address] Mar, 2013 [facility] [address] [id number] [facility] [address] Mar, 2013 [facility] [address] [id number] [facility] [address] Mar, 2013 [facility] [address] [id number] [address] [place] [address], [place] [address] Mar, 2013 [facility] [address] [id number] [address] [place] [address], [place] [address] Mar, 2013 [facility] [address] [id number] [address] [place] [address], [place] [address] Mar, 2013 [facility] [address] [id number] [address] [place] [address], [place] [address] Mar, 2013 [facility] [address] [id number] [address] [place] [address], [place] [address] Mar, 2013 [facility] [address] [id number] [address] [place] [address], [place] [address] Mar, 2013 [facility] [address] [id number] [address] [place] [address], [place] [address] Mar, 2013 [facility] [address] [id number] [address] [place] [address], [place] [address] Mar, 2013 [facility] [address] [id number] [address] [place] [address], [place] [address] Mar, 2013 [facility] [address] [id number] [address] [place] [address], [place] [address] Mar, 2013 [facility] [address] [id number] [address] [place] [address], [place] [address] Mar, [facility] [address] [id number] [facility] [address] Mar, [facility] [address] [id number] [facility] [address] Feb, [facility] [address] [id number] [address] [address] Feb, [facility] [address] [id number] [facility] [address] Feb, [facility] [address] [id number] [address] [address] Feb, [facility] [address] [id number] [address] [place] [address], [place] [address] Feb, [facility] [address] [id number] [address] [place] [address], [place] [address] Feb, [facility] [address] [id number] [address] [place] [address], [place] [address] Feb, [facility] [address] [id number] [address] [place] [address], [place] [address] Feb, [facility] [address] [id number] [address] [place] [address], [place] [address] Feb, [facility] [address] [id number] [address] [place] [address], [place] [address] Feb, [facility] [address] [id number] [address] [place] [address], [place] [address] Feb, [facility] [address] [id number] [address] [place] [address], [place] [address] Feb, [facility] [address] [id number] [address] [place] [address], [place] [address] Feb, [facility] [address] [id number] [address] [place] [address], [place] [address] Feb, [facility] [address] [id number] [facility] [address] January, [facility] [address] [id number] [address] [place] [address], [place] [address] January, [facility] [address] [id number] [address] [place] [address], [place] [address] January, [facility] [address] [id number] [address] [place] [address], [place] [address] January, [facility] [address] [id number] [address] [place] [address], [place] [address] January, [facility] [address] [id number] [address] [place] [address], [place] [address] January, [facility] [address] [id number] [address] [place] [address], [place] [address] January, [facility] [address] [id number] [address] [place] [address], [place] [address] January, [facility] [address] [id number] [address] [place] [address], [place] [address] January, [facility] [address] [id number] [address] [place] [address], [place] [address] January, [facility] [address] [id number] [address] [place] [address], [place] [address] January, [facility] [address] [id number] [address] [place] [address], [place] [address] January, [facility] [address] [id number] [address] [place] [address], [place] [address] January, [facility] [address] [id number] [address] [place] [address], [place] [address] January, [facility] [address] [id number] [address] [place] [address], [place] [address] Dec, [facility] [address] [id number] [address] [place] [address], [place] [address] Dec, [facility] [address] [id number] [facility] [address] Dec, [facility] [address] [id number] [address] [address] Dec, [facility] [address] [id number] [facility] [address] Dec, [facility] [address] [id number] [address] [place] [address], [place] [address] Dec, [facility] [address] [id number] [facility] [address] Dec, [facility] [address] [id number] [address] [place] [address], [place] [address] Dec, [facility] [address] [id number] [address] [place] [address], [place] [address] Dec, [facility] [address] [id number] [address] [place] [address], [place] [address] Dec, [facility] [address] [id number] [address] [place] [address], [place] [address] Nov, [facility] [address] [id number] [address] [place] [address], [place] [address] Nov, [facility] [address] [id number] [address] [place] [address], [place] [address] Nov, [facility] [address] [id number] [address] [place] [address], [place] [address] Nov, [facility] [address] [id number] [address] [place] [address], [place] [address] Nov, [facility] [address] [id number] [address] [place] [address], [place] [address] Nov, [facility] [address] [id number] [address] [place] [address], [place] [address] Nov, [facility] [address] [id number] [address] [place] [address], [place] [address] Nov, [facility] [address] [id number] [address] [place] [address], [place] [address] Nov, [facility] [address] [id number] [address] [place] [address], [place] [address] Nov, [facility] [address] [id number] [address] [place] [address], [place] [address] Oct, [facility] [address] [id number] [address] [place] [address], [place] [address] Oct, [facility] [address] [id number] [address] [place] [address], [place] [address] Oct, [facility] [address] [id number] [address] [place] [address], [place] [address] Oct, [facility] [address] [id number] [address] [place] [address], [place] [address] Oct, [facility] [address] [id number] [address] [place] [address], [place] [address] Oct, [facility] [address] [id number] [address] [place] [address], [place] [address] Oct, [facility] [address] [id number] [address] [place] [address], [place] [address] Oct, [facility] [address] [id number] [address] [place] [address], [place] [address] Oct, 2013 [facility] [address] [id number] [address] [place] [address], [place] [address] Oct, 2013 [facility] [address] [id number] [address] [place] [address], [place] [address] Oct, 2013 [facility] [address] [id number] [address] [place] [address], [place] [address] Oct, 2013 [facility] [address] [id number] [address] [place] [address], [place] [address] Oct, [facility] [address] [id number] [address] [place] [address], [place] [address] Oct, [facility] [address] [id number] [address] [place] [address], [place] [address] Sep, [facility] [address] [id number] [address] [place] [address], [place] [address] Sep, [facility] [address] [id number] [address] [place] [address], [place] [address] Sep, [facility] [address] [id number] [address] [place] [address], [place] [address] Sep, [facility] [address] [id number] [address] [place] [address], [place] [address] Sep, [facility] [address] [id number] [address] [place] [address], [place] [address] Sep, [facility] [address] [id number] [address] [place] [address], [place] [address] Sep, [facility] [address] [id number] [address] [place] [address], [place] [address] Sep, [facility] [address] [id number] [address] [place] [address], [place] [address] Sep, [facility] [address] [id number] [address] [place] [address], [place] [address] Sep, [facility] [address] [id number] [address] [place] [address], [place] [address] Aug, [facility] [address] [id number] [address] [place] [address], [place] [address] Aug, [facility] [address] [id number] [address] [place] [address], [place] [address] Jul, [facility] [address] [id number] [address] [place] [address], [place] [address] Jul, [facility] [address] [id number] [address] [place] [address], [place] [address] 13 Jul, 2013 [facility] [address] [id number] [address] [place] [address], [place] [address] Jul, [facility] [address] [id number] [address] [place] [address], [place] [address] Jul, [facility] [address] [id number] [address] [place] [address], [place] [address] Jul, [facility] [address] [id number] [address] [place] [address], [place] [address] Jul, [facility] [address] [id number] [address] [place] [address], [place] [address] Jul, [facility] [address] [id number] [address] [place] [address], [place] [address] Jul, [facility] [address] [id number] [address] [place] [address], [place] [address] Jul, [facility] [address] [id number] [address] [place] [address], [place] [address] Jul, [facility] [address] [id number] [address] [place] [address], [place] [address] Jul, [facility] [address] [id number] [address] [place] [address], [place] [address] Jul, [facility] [address] [id number] [address] [place] [address], [place] [address] Jul, [facility] [address] [id number] [address] [place] [address] Jul, [facility] [address] [id number] [address] [place] [address] Jul, [facility] [address] [id number] [address] [place] [address], [place] [address] Jul, [facility] [address] [id number] [address] [place] [address], [place] [address] Jul, [facility] [address] [id number] [address] [place] [address], [place] [address] Jul, [facility] [address] [id number] [address] [place] [address], [place] [address] Jun, 2012 [facility] [address] [id number] [address] [place] [address], [place] [address] Jun, 2012 [facility] [address] [id number] [address] [place] [address], [place] [address] Jun, 2012 [facility] [address] [id number] [address] [place] [address], [place] [address] Jun, 2012 [facility] [address] [id number] [address] [place] [address], [place] [address] Jun, 2012 [facility] [address] [id number] [address] [place] [address], [place] [address] Jun, 2012 [facility] [address] [id number] [address] [place] [address], [place] [address] Jun, [facility] [address] [id number] [address] [place] [address], [place] [address] Jun, [facility] [address] [id number] [address] [place] [address], [place] [address] Jun, [facility] [address] [id number] [address] [place] [address], [place] [address] Jun, [facility] [address] [id number] [address] [place] [address], [place] [address] Jun, [facility] [address] [id number] [address] [place] [address], [place] [address] 26 May, 2012 [facility] [address] [id number] [address] [place] [address], [place] [address] 25 May, 2012 [facility] [address] [id number] [address] [place] [address], [place] [address] 19 May, 2012 [facility] [address] [id number] [address] [place] [address], [place] [address] 17 May, 2013 [facility] [address] [id number] [facility] [address] 11 May, 2013 [facility] [address] [id number] [address] [place] [address], [place] [address] 10 May, 2013 [facility] [address] [id number] [address] [place] [address], [place] [address] May, [facility] [address] [id number] [address] [place] [address], [place] [address] 05 May, 2013 [facility] [address] [id number] [address] [place] [address], [place] [address] Apr, [facility] [address] [id number] [address] [place] [address], [place] [address] Apr, [facility] [address] [id number] [address] [place] [address], [place] [address] Apr, [facility] [address] [id number] [address] [place] [address], [place] [address] Apr, [facility] [address] [id number] [address] [place] [address], [place] [address] Apr, [facility] [address] [id number] [address] [place] [address], [place] [address] Mar, [facility] [address] [id number] [address] [place] [address], [place] [address] Mar, [facility] [address] [id number] [address] [place] [address], [place] [address] Mar, [facility] [address] [id number] [address] [place] [address], [place] [address] Mar, [facility] [address] [id number] [address] [place] [address], [place] [address] Mar, [facility] [address] [id number] [address] [place] [address], [place] [address] Mar, [facility] [address] [id number] [address] [place] [address], [place] [address] Mar, [facility] [address] [id number] [address] [place] [address], [place] [address] Mar, [facility] [address] [id number] [address] [place] [address], [place] [address] Feb, [facility] [address] [id number] [address] [place] [address], [place] [address] Feb, [facility] [address] [id number] [address] [place] [address], [place] [address] January, [facility] [address] [id number] [address] [place] [address], [place] [address] January, [facility] [address] [id number] [address] [place] [address], [place] [address] Dec, [facility] [address] [id number] [address] [place] [address], [place] [address] Dec, [facility] [address] [id number] [address] [place] [address], [place] [address] Nov, [facility] [address] [id number] [address] [place] [address], [place] [address] Nov, [facility] [address] [id number] [address] [place] [address], [place] [address] Nov, [facility] [address] [id number] [address] [place] [address], [place] [address] Nov, [facility] [address] [id number] [address] [place] [address], [place] [address] Oct, [facility] [address] [id number] [address] [place] [address], [place] [address] Oct, [facility] [address] [id number] [address] [place] [address], [place] [address] Oct, [facility] [address] [id number] [address] [place] [address], [place] [address] Oct, [facility] [address] [id number] [address] [place] [address], [place] [address] 16 Oct, 2012 [facility] [address] [id number] [address] [place] [address], [place] [address] 14 Oct, 2012 [facility] [address] [id number] [address] [place] [address], [place] [address] 08 Oct, 2012 [facility] [address] [id number] [address] [place] [address], [place] [address] 07 Oct, 2012 [facility] [address] [id number] [address] [place] [address], [place] [address] Oct, [facility] [address] [id number] [address] [place] [address], [place] [address] Sep, [facility] [address] [id number] [address] [place] [address], [place] [address] Sep, [facility] [address] [id number] [address] [place] [address], [place] [address] Sep, [facility] [address] [id number] [address] [place] [address], [place] [address] Sep, [facility] [address] [id number] [address] [place] [address], [place] [address] Sep, [facility] [address] [id number] [address] [place] [address], [place] [address] Sep, [facility] [address] [id number] [address] [place] [address], [place] [address] Sep, [facility] [address] [id number] [address] [place] [address], [place] [address] Sep, [facility] [address] [id number] [address] [place] [address], [place] [address] Aug, [facility] [address] [id number] [address] [place] [address], [place] [address] Aug, [facility] [address] [id number] [address] [place] [address], [place] [address] Aug, [facility] [address] [id number] [address] [place] [address], [place] [address] Aug, [facility] [address] [id number] [address] [place] [address], [place] [address] Aug, [facility] [address] [id number] [address] [place] [address], [place] [address] Aug, [facility] [address] [id number] [address] [place] [address], [place] [address] Aug, [facility] [address] [id number] [address] [place] [address], [place] [address] Aug, [facility] [address] [id number] [address] [place] [address], [place] [address] Jul, [facility] [address] [id number] [address] [place] [address], [place] [address] Jul, [facility] [address] [id number] [address] [place] [address], [place] [address] Jul, [facility] [address] [id number] [address] [place] [address], [place] [address] Jul, [facility] [address] [id number] [address] [place] [address], [place] [address] Jul, [facility] [address] [id number] [address] [place] [address], [place] [address] Jul, [facility] [address] [id number] [address] [place] [address], [place] [address] Jun, [facility] [address] [id number] [address] [place] [address], [place] [address] Jun, [facility] [address] [id number] [address] [place] [address], [place] [address] Jun, [facility] [address] [id number] [address] [place] [address], [place] [address] Jun, [facility] [address] [id number] [address] [place] [address], [place] [address] 22 Jun, 2012 [facility] [address] [id number] [address] [place] [address], [place] [address] Jun, [facility] [address] [id number] [address] [place] [address], [place] [address] 19 Jun, 2012 [facility] [address] [id number] [address] [place] [address], [place] [address] Jun, [facility] [address] [id number] [address] [place] [address], [place] [address] 10 Jun, 2012 [facility] [address] [id number] [address] [place] [address], [place] [address] 26 May, 2012 [facility] [address] [id number] [address] [place] [address], [place] [address] 24 May, 2012 [facility] [address] [id number] [address] [place] [address], [place] [address] 18 May, 2012 [facility] [address] [id number] [address] [place] [address], [place] [address] 30 Apr, 2012 [facility] [address] [id number] [address] [place] [address], [place] [address] 29 Apr, 2012 [facility] [address] [id number] [address] [place] [address], [place] [address] Apr, [facility] [address] [id number] [address] [place] [address], [place] [address] 14 Apr, 2012 [facility] [address] [id number] [address] [place] [address], [place] [address] Apr, [facility] [address] [id number] [address] [place] [address], [place] [address] Apr, [facility] [address] [id number] [address] [place] [address], [place] [address] Mar, [facility] [address] [id number] [address] [place] [address], [place] [address] Mar, [facility] [address] [id number] [address] [place] [address], [place] [address] Mar, [facility] [address] [id number] [address] [place] [address], [place] [address] Mar, [facility] [address] [id number] [address] [place] [address], [place] [address] Feb, [facility] [address] [id number] [address] [place] [address], [place] [address] Feb, [facility] [address] [id number] [address] [place] [address], [place] [address] Feb, [facility] [address] [id number] [address] [place] [address], [place] [address] Feb, [facility] [address] [id number] [address] [place] [address], [place] [address] Feb, [facility] [address] [id number] [address] [place] [address], [place] [address] January, [facility] [address] [id number] [address] [place] [address], [place] [address] January, [facility] [address] [id number] [address] [place] [address], [place] [address] January, [facility] [address] [id number] [address] [place] [address], [place] [address] January, [facility] [address] [id number] [address] [place] [address], [place] [address] January, [facility] [address] [id number] [address] [place] [address], [place] [address] January, [facility] [address] [id number] [address] [place] [address], [place] [address] Dec, [facility] [address] [id number] [address] [place] [address], [place] [address] Dec, [facility] [address] [id number] [address] [place] [address], [place] [address] 17 Dec, 2011 [facility] [address] [id number] [address] [place] [address], [place] [address] 09 Dec, 2011 [facility] [address] [id number] [address] [place] [address], [place] [address] 06 Dec, 2011 [facility] [address] [id number] [address] [place] [address], [place] [address] 27 Nov, 2011 [facility] [address] [id number] [address] [place] [address], [place] [address] 14 Nov, 2011 [facility] [address] [id number] [address] [place] [address], [place] [address] 12 Nov, 2011 [facility] [facility] [address] [id number] [address] [place] [address], [place] [address] 07 Nov, 2011 [facility] [address] [id number] [address] [place] [address], [place] [address] 29 Oct, 2011 [facility] [address] [id number] [address] [place] [address], [place] [address] 28 Oct, 2011 [facility] [address] [id number] [address] [place] [address], [place] [address] 24 Oct, 2011 [facility] [address] [id number] [address] [place] [address], [place] [address] 13 Oct, 2011 [facility] [address] [id number] [address] [place] [address], [place] [address] 08 Oct, 2011 [facility] [address] [id number] [address] [place] [address], [place] [address] Sep, [facility] [address] [id number] [address] [place] [address], [place] [address] 30 Sep, 2011 [facility] [address] [id number] [address] [place] [address], [place] [address] 12 Sep, 2011 [facility] [address] [id number] [address] [address] Sep, [facility] [address] [id number] [address] [place] [address], [place] [address] Sep, [facility] [address] [id number] [address] [place] [address], [place] [address] Sep, [facility] [address] [id number] [address] [place] [address], [place] [address] Aug, [facility] [address] [id number] [address] [place] [phone] Aug, [facility] [address] [id number] [address] [place] [address], [place] [address] Aug, [facility] [address] [id number] [address] [place] [id number] Jul, [facility] [address] [id number] [address] [place] [address], [place] [address] Jul, [facility] [address] [id number] [address] [place] [id number] Jul, [facility] [address] [id number] [address] [place] [phone] Jul, [facility] [address] [id number] [address] [place] [phone] Jun, [facility] [address] [id number] [address] [place] [phone] Jun, [facility] [address] [id number] [address] [place] [id number] 18 Jun, 2011 [facility] [address] [id number] [address] [place] [address], [place] [address] Jun, [facility] [address] [id number] [address] [place] [id number] Jun, [facility] [address] [id number] [address] [place] [phone] Jun, [facility] [address] [id number] [address] [place] [address], [place] [address] 11 Mar, 2011 [facility] [address] [id number] [address] [place] [address], [place] [address] 18 Dec, 2010 [facility] [address] [id number] [address] [place] [address], [place] [address] 11 Dec, 2010 [facility] [address] [id number] [address] [place] [address], [place] [address] 18 Nov, 2010 [facility] [address] [id number] [address] [place] [address], [place] [address] 16 Nov, 2010 [facility] [address] [id number] [address] [place] [address], [place] [address] 10 Sep, 2010 [facility] [address] [id number] [address] [place] [address], [place] [address] 31 Aug, 2010 [facility] [address] [id number] [address] [place] [address], [place] [address] 29 Aug, 2010 [facility] [address] [id number] [address] [place] [address], [place] [address] 29 Aug, 2010 [facility] [address] [id number] [address] [place] [address], [place] [address] 29 Aug, 2010 [facility] [address] [id number] [address] [place] [address], [place] [id number] 27 Aug, 2010 [facility] [address] [id number] [address] [place] [address], [place] [address] 14 Aug, 2010 [facility] [address] [id number] [address] [place] [address], [place] [address] 08 Aug, 2010 [facility] [address] [id number] [address] [place] [address], [place] [address] 08 Aug, 2010 [facility] [address] [id number] [address] [place] [address], [place] [address] 07 Aug, 2010 [facility] [address] [id number] [address] [place] [address], [place] [address] Aug, [facility] [address] [id number] [address] [place] [address], [place] [address] Aug, [facility] [address] [id number] [address] [place] [address], [place] [address] Aug, [facility] [address] [id number] [address] [place] [address], [place] [address] Jul, [facility] [address] [id number] [address] [place] [address], [place] [address] Jul, [facility] [address] [id number] [address] [place] [address], [place] [address] Jul, [facility] [address] [id number] [address] [place] [address], [place] [address] Jul, [facility] [address] [id number] [address] [place] [address], [place] [address] Jul, [facility] [address] [id number] [address] [place] [id number] Jul, [facility] [address] [id number] [address] [place] [address], [place] [address] Jun, [facility] [address] [id number] [address] [place] [phone] Jun, [facility] [address] [id number] [address] [place] [phone] Jun, [facility] [address] [id number] [address] [place] [id number] Jun, [facility] [address] [id number] [address] [place] [phone] Apr, [facility] [address] [id number] [address] [place] [phone] Mar, [facility] [address] [id number] [address] [place] [phone] Feb, [facility] [address] [id number] [address] [place] [phone] January, [facility] [address] [id number] [address] [place] [address], [place] [address] 15 Dec, 2009 [facility] [address] [id number] [address] [place] [phone] Nov, [facility] [address] [id number] [address] [place] [id number] 31 Aug, 2009 [facility] [address] [id number] [address] [place] [phone] Aug, [facility] [address] [id number] [address] [place] [phone] Aug, [facility] [address] [id number] [address] [place] [id number] Jul, [facility] [address] [id number] [address] [place] [id number] Jul, [facility] [address] [id number] [address] [place] [phone] Jul, [facility] [address] [id number] [address] [place] [id number] 30 Jun, 2009 [facility] [address] [id number] [address] [place] [phone] 29 Jun, 2009 [facility] [address] [id number] [address] [place] [phone] Jun, [facility] [address] [id number] [address] [place] [phone] Jun, [facility] [address] [id number] [address] [place] [phone] Jun, [facility] [address] [id number] [address] [place] [phone] Jun, [facility] [address] [id number] [address] [place] [phone] Apr, [facility] [address] [facility] [id number] [address] [place] [phone] Apr, [facility] [address] [facility] [id number] [address] [place] [phone] Feb, [facility] [address] [facility] [id number] [address] [place] [id number] January, [facility] [address] [facility] [id number] [address] [place] [phone] Dec, IMMUNIZATIONS No Known Immunizations SOCIAL HISTORY [...] release (Left) 2000 Surgical History EGD ([facility]) 2009 Surgical History colonoscopy 2009 ([facility]), 2013 ([facility] ) Surgical History heart cath: CAD w/ [...] History inability to urinate 09/16/15 Hospitalization History [facility] e[facility] 1999' Hospitalization History hyperkalemia 10/2017 Hospitalization History fluid in lung
--- OUTSIDE RECORDS SUMMARY | 2020-03-01 18:11 | XMS REPORT ---
Author Author Michele WASHBURN Organization [facility] Address [address] [place] [address] Care Team Providers Care Net Applications Developer Name Role Phone NOEMI WASHBURN Unavailable PROBLEMS Type Condition ICD9-CM Code [id number] Code Onset Dates Condition S tatus SNOMED Code Problem Cough R05 Active 79119681 Problem Benign prostatic hyperplasia with lower urinary tract symptoms, unspecified morphology N40.1 Active 79882 6007 Problem Eustachian tube dysfunction, unspecified laterality H69.80 Active 68927556 Problem Chronic pain G89.29 Active 5388917 1 Problem DM neuro manif type II E11.49 Active 24003948 Problem Diabetes E11.9 Active 60315061 Problem Leukocytosis D72.829 Active 8434471 06 Problem Falling R29.6 Active 496217719 Problem Pressure ulcer of other site, stage 3 L89.893 Active 128414650 Problem 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 Active 025757909 Problem Eye exam abnormal R93.8 Active 16 9299512 Problem Dysuria R30.0 Active 92143657 Problem Hypokalemia E87.6 Active 49752224 Problem Morbid obesity E66.01 Active 55030 6002 Problem Anxiety F41.9 Active 18687466 Problem Diabetic polyneuropathy associated with type 2 d iabetes mellitus E11.42 Active 93556643 Problem Essential hypertension I10 Active 08503507 Problem Bilateral primary osteoarthritis of knee M17.0 Active 772011047 Problem Polyneuropathy associated with underlying disease G63 Active 404112174 Problem Anemia of chronic illness D63.8 Acti ve 323599557 Problem Lymphocytosis D72.820 Active 721680 09 Problem Retinal edema H35.81 Active 118222 6 Problem Chronic lymphocytic leukemia C91.10 A ctive 40433786 Problem Bipolar disorder, in partial remission, most rec ent episode depressed F31.75 Active 81426491 Problem Pure hypercholesterolemia E78.00 Acti ve 669083197 Problem Primary osteoarthritis of right knee M17.11 Active 121726224810558 Problem Bipolar disorder F31.9 Active 137 52745 Problem Bipolar I disorder, most recent episode (or curr ent) mixed, moderate F31.62 Active 18737847 Problem Chronic diastolic (congestive) heart failure I50.3 2 Active 767044531 Problem Reactive airway disease J45.909 Active 161854425622 Problem Insomnia, unspecified type G47.00 Act sharon 520026887 Problem Other chronic pain G89.29 Active 8 7790459 Problem Other iron deficiency anemia D50.8 A ctive 67108580 Problem Mild cognitive impairment G31.84 Acti ve 230343699 Problem Skin cancer C44.90 Active 86764817 7 ALLERGIES No Information ENCOUNTERS Encounter Location Date Diagnosis [place] [address] [facility] [id number] [address] [place] [id number] Apr, Chronic pain G89.29 and Bipo lar disorder F31.9 [place] [address] [place] [id number] [address] [place] [phone] Mar, Bipolar disorder F31.9 and C hronic pain G89.29 [facility] [address] [facility] [id number] [address] [place] [address] Feb, Bipolar disorder F31.9 [facility] [address] [facility] [id number] [address] [place] [address] Feb, Cellulitis of right upper ex tremity L03.113 and Skin abrasion T14.8XXA [facility] [address] [facility] [id number] [address] [place] [address] Feb, Bipolar disorder, in partial remission, most recent episode depressed F31.75 and Mild cognitive impairment G31.84 [facility] [address] [facility] [id number] [address] [place] [address] Feb, Chronic pain G89.29 [facility] [address] [facility] [id number] [address] [place] [address] Feb, Bipolar disorder, in partial remission, most recent episode depressed F31.75 and Mild cognitive impairment G31.84 [facility] [address] [id number] [address] [place] [address] January, Bipolar disorder, in partial remission, most recent episode depressed F31.75 and Mild cognitive impairment G31.84 [facility] [address] [id number] [address] [place] [id number] January, Chronic pain G89.29 and Bipo lar disorder F31.9 [facility] [address] [id number] [address] [place] [address] January, Bipolar disorder, in partial remission, most recent episode depressed F31.75 and Mild cognitive impairment G31.84 [facility] [address] [id number] [address] [place] [address] Dec, [facility] [address] [id number] [address] [place] [address] Dec, Chronic pain G89.29 and Bipo lar disorder F31.9 [facility] [address] [id number] [address] [place] [address] Dec, Edema of both lower extremit ies R60.0 [facility] [address] [id number] [address] [place] [address] Dec, Bipolar disorder F31.9 [facility] [address] [id number] [address] [place] [address] Dec, Bipolar disorder, in partial remission, most recent episode depressed F31.75 and Mild cognitive impairment G31.84 [facility] [address] [id number] [address] [place] [id number] Nov, [facility] [address] [id number] [address] [place] [address] Nov, Chronic pain G89.29 [facility] [address] [id number] [address] [place] [address] Nov, Bipolar disorder, in partial remission, most recent episode depressed F31.75 and Mild cognitive impairment G31.84 [place] [address] [place] [id number] [address] [place] [phone] Nov, Bipolar disorder F31.[address] [address] 04 Nov, 2018 Encounter for Medicare [place] [...] unspecified morphology N40.1 and Essential hypertension I10 [place] [id number] [address] [place] [id number] 21 Oct, 2018 Chronic pain G89.29 [place] [address] [place] [id number] [address] [place] [id number] 18 Oct, 2018 Diabetes E11.9 [place] [address] [id number] 11 Oct, 2018 Bipolar I disorder, most rec ent episode (or current) mixed, moderate F31.62 and Mild cognitive impairment G31.84 [place] [address] [place] [id number] [address] [place] [phone] Oct, Bipolar I disorder, most rec ent episode (or current) mixed, moderate F31.62 and Mild cognitive impairment G31.84 [place] [address] [place] [id number] [address] [place] [id number] Sep, Bipolar I disorder, most rec ent episode (or current) mixed, moderate F31.62 and Mild cognitive impairment G31.84 [place] [address] [place] [id number] [address] [place] [address] Sep, [place] [id number] [address] [place] [phone] Sep, Diabetes E11.9 ; Hypoxia R09 .02 ; Hyperglycemia R73.9 ; Therapeutic drug monitoring Z51.81 ; BMI 50.0-59.9, adult Z68.43 and Skin cancer C44.90 [facility] [address] [facility] [id number] [address] [place] [address] Sep, Chronic pain G89.29 [facility] [address] [facility] [id number] [address] [place] [address] Sep, Bipolar I disorder, most rec ent episode (or current) mixed, moderate F31.62 [place] [address] [facility] [id number] [address] [place] [id number] Sep, [place] [address] [place] [id number] [address] [place] [id number] Sep, [place] [address] [place] [id number] [address] [place] [address] Aug, Chronic pain G89.29 [facility] [address] [facility] [id number] [address] [place] [address] Aug, Bipolar I disorder, most rec ent episode (or current) mixed, moderate F31.62 [place] [address] [place] [id number] [address] [place] [address] Aug, Bipolar I disorder, most rec ent episode (or current) mixed, moderate F31.62 and Mild cognitive impairment G31.84 [place] [address] [facility] [id number] [address] [place] [address] Jul, [facility] [address] [facility] [id number] [address] [place] [address] Jul, Chronic pain G89.29 [facility] [address] [facility] [id number] [address] [place] [address] Jul, Bipolar I disorder, most rec ent episode (or current) mixed, moderate F31.62 and Mild cognitive impairment G31.84 [place] [address] [facility] [id number] [address] [place] [id number] Jul, Bipolar I disorder, most rec ent episode (or current) mixed, moderate F31.62 and MCI (mild cognitive impairment) G31.84 [facility] [address] [facility] [id number] [address] [place] [address] Jul, [facility] [address] [facility] [id number] [address] [place] [address] Jul, [facility] [address] [facility] [id number] [address] [place] [address] Jul, Bipolar I disorder, most rec ent episode (or current) mixed, moderate F31.62 [place] [address] [facility] [id number] [address] [place] [id number] Jul, Chronic pain G89.29 [place] [address] [facility] [id number] [address] [place] [address] Jun, Bipolar I disorder, most rec ent episode (or current) mixed, moderate F31.62 [place] [address] [facility] [id number] [address] [place] [address] Jun, Pre-procedure lab exam Z01.8 12 [place] [address] [place] [id number] [address] [place] [phone] Jun, [facility] [address] [place] [id number] [place] [address] [id number] Jun, [facility] [address] [place] [id number] [address] [place] [id number] Jun, [place] [address] [facility] [id number] [address] [place] [address] Jun, Forgetfulness R68.89 ; Pre-s yncope R55 ; Localized edema R60.0 ; Other iron deficiency anemia D50.8 and BMI 50.0-59.9, adult Z68.43 [place] [address] [place] [id number] [address] [place] [address] Jun, Chronic pain G89.29 [facility] [address] [place] [id number] [address] [place] [id number] 05 Jun, 2018 Chronic pain G89.29 [facility] [address] [facility] [id number] [address] [place] [address] Jun, Bipolar I disorder, most rec ent episode (or current) mixed, moderate F31.62 [place] [address] [place] [id number] [address] [place] [address] May, Chronic pain G89.29 [place] [address] [place] [id number] [address] [place] [id number] Apr, [place] [address] [place] [id number] [place] [address] Apr, Chronic pain G89.29 [place] [address] [address] Apr, [facility] M17.11 [place] [address] [place] [id number] [address] [place] [phone] Mar, [place] [address] [place] [id number] [place] [address] Mar, BMI 50.0-59.9, adult Z68.43 and Bipolar disorder, in partial remission, most recent episode depressed F31.75 [place] [address] [place] [id number] [place] [address] Mar, Diabetes E11.9 ; Pure hyperc holesterolemia E78.00 ; Essential hypertension I10 ; Nausea with vomiting, unspecified R11.2 and Headache, unspecified headache type R51 [place] [address] [place] [id number] [address] [place] [phone] Mar, Bipolar I disorder, most rec ent episode (or current) mixed, moderate F31.62 [place] [address] [place] [id number] [address] [place] [id number] Mar, Bipolar I disorder, most rec ent episode (or current) mixed, moderate F31.62 [facility] [address] [id number] [address] [place] [address] Mar, Chronic pain G89.29 [facility] [address] [id number] [address] [place] [address] Mar, Bipolar I disorder, most rec ent episode (or current) mixed, moderate F31.62 [facility] [address] [id number] [address] [place] [id number] Feb, Bipolar I disorder, most rec ent episode (or current) mixed, moderate F31.62 [place] [address] [id number] [address] [place] [id number] 14 Feb, 2018 Chronic pain G89.29 [facility] [address] [id number] [address] [place] [id number] Feb, Decubitus ulcer of right josselin t, stage 3 L89.893 and BMI 50.0-59.9, adult Z68.43 [facility] [address] [id number] [address] [place] [id number] Feb, Bipolar I disorder, most rec ent episode (or current) mixed, moderate F31.62 [facility] [address] [id number] [address] [place] [phone] Feb, [facility] [address] [id number] [address] [place] [phone] January, [facility] [address] [id number] [address] [place] [id number] January, Chronic pain G89.29 [facility] [address] [id number] [address] [place] [id number] January, Bipolar I disorder, most rec ent episode (or current) mixed, moderate F31.62 [facility] [address] [facility] [id number] [address] [place] [id number] January, Bipolar I disorder, most rec ent episode (or current) mixed, moderate F31.62 [facility] [address] [facility] [id number] [address] [place] [address] Dec, Bipolar I disorder, most rec ent episode (or current) mixed, moderate F31.62 and BMI 50.0-59.9, adult Z68.43 [facility] [address] [facility] [id number] [address] [place] [id number] Dec, Bipolar I disorder, most rec ent episode (or current) mixed, moderate F31.62 [place] [address] [facility] [id number] [address] [place] [address] Dec, Chronic pain G89.29 [place] [address] [place] [id number] [address] [place] [address] Dec, DM neuro manif type II E11.4 9 ; Right flank pain R10.9 ; 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 ; Encounter for medication monitoring Z51.81 and BMI 50.0-59.9, adult Z68.43 [place] [address] [place] [id number] [address] [place] [id number] Dec, Bipolar I disorder, most rec ent episode (or current) mixed, moderate F31.62 [place] [address] [place] [id number] [address] [place] [phone] Nov, Bipolar I disorder, most rec ent episode (or current) mixed, moderate F31.62 [place] [address] [place] [id number] [address] [place] [address] Nov, Chronic pain G89.29 [place] [address] [facility] [id number] [address] [place] [phone] Nov, Bipolar I disorder, most rec ent episode (or current) mixed, moderate F31.62 [place] [address] [facility] [id number] [address] [place] [id number] Nov, Hypokalemia E87.6 [place] [address] [address] Nov, Bipolar I disorder, most rec ent episode (or current) mixed, moderate F31.62 [place] [address] [address] Oct, Chronic pain G89.29 [place] [address] [address] Oct, BMI 50.0-59.9, adult Z68.43 and Bipolar I disorder, most recent episode (or current) mixed, moderate F31.62 [place] [address] [address] Oct, Bipolar I disorder, most rec ent episode (or current) mixed, moderate F31.62 [place] [address] [address] Oct, [place] [address] [address] Oct, Hypokalemia E87.6 [place] [address] [address] Oct, DM neuro manif type II E11.4 9 [place] [address] [address] Oct, Bipolar I disorder, most rec ent episode (or current) mixed, moderate F31.62 [place] [address] [address] Oct, Bipolar I disorder, most rec ent episode (or current) mixed, moderate F31.62 [place] [address] [address] 14 Oct, 2017 Hyperkalemia E87.5 ; Falling R29.6 ; BMI 50.0-59.9, adult Z68.43 and Acute left ankle pain M25.572 [place] [address] [address] 08 Oct, 2017 DM neuro manif type II E11.4 9 [place] [address] [address] Oct, [place] [address] [address] Sep, Chronic pain G89.29 [place] [address] [address] Sep, [place] [address] [address] Sep, Bilateral primary osteoarthr itis of knee M17.0 [place] [address] [address] Sep, Generalized edema R60.[address] [address] 16 Sep, 2017 Bipolar I disorder, most rec ent episode (or current) mixed, moderate F31.[address] [address] 15 Sep, 2017 Hypoxia R09.02 ; Other hyper volemia E87.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 ; Anemia of chronic illness D63.8 and BMI 50.0- 59.9, adult Z68.43 [place] [address] [address] Sep, [address] [address] Sep, Bipolar I disorder, most rec ent episode (or current) mixed, moderate F31.62 [place] [address] [address] Aug, Chronic pain G89.29 [place] [address] [place] [id number] [address] [place] [address] Aug, Generalized edema R60.1 [facility] [address] [facility] [id number] [address] [place] [id number] Aug, [facility] [address] [facility] [id number] [address] [place] [address] Aug, [facility] [address] [place] [id number] [address] [place] [address] Aug, Bipolar I disorder, most rec ent episode (or current) mixed, moderate F31.62 [facility] [address] [place] [id number] [address] [place] [phone] Aug, Bipolar I disorder, most rec ent episode (or current) mixed, moderate F31.62 [place] [address] [place] [id number] [address] [place] [address] Aug, Chronic pain G89.29 [facility] [address] [place] [id number] [address] [place] [address] Jul, Bipolar I disorder, most rec ent episode (or current) mixed, moderate F31.62 [facility] [address] [place] [id number] [address] [place] [address] Jul, Bipolar I disorder, most rec ent episode (or current) mixed, moderate F31.62 and BMI 60.0-69.9, adult Z68.44 [facility] [address] [place] [id number] [address] [place] [address] Jul, Bipolar I disorder, most rec ent episode (or current) mixed, moderate F31.62 [facility] [address] [place] [id number] [address] [place] [address] Jul, Chronic pain G89.29 [facility] [address] [place] [id number] [address] [place] [address] 02 Jul, 2017 Bipolar I disorder, most rec ent episode (or current) mixed, moderate F31.62 [facility] [address] [place] [id number] [address] [place] [address] Jun, Polyneuropathy associated wi th underlying disease G63 and Diabetes E11.9 [facility] [address] [facility] [id number] [address] [place] [address] 16 Jun, 2017 Bipolar I disorder, most rec ent episode (or current) mixed, moderate F31.62 [facility] [address] [place] [id number] [address] [place] [address] 09 Jun, 2017 Chronic pain G89.29 [facility] [address] [place] [id number] [address] [place] [address] May, Bipolar I disorder, most rec ent episode (or current) mixed, moderate F31.62 [facility] [address] [place] [id number] [address] [place] [address] May, Bipolar I disorder, most rec ent episode (or current) mixed, moderate F31.62 [facility] [address] [place] [id number] [address] [place] [address] May, Diabetic polyneuropathy asso ciated with type 2 diabetes mellitus E11.42 [facility] [address] [place] [id number] [address] [place] [address] 18 May, 2017 Bipolar I disorder, most rec ent episode (or current) mixed, moderate F31.62 [facility] [address] [place] [id number] [address] [place] [address] May, Bipolar I disorder, most rec ent episode (or current) mixed, moderate F31.62 [facility] [address] [facility] [id number] [address] [place] [address] May, Chronic pain G89.29 [facility] [address] [place] [id number] [address] [place] [address] Apr, Bipolar I disorder, most rec ent episode (or current) mixed, moderate F31.62 [facility] [address] [place] [id number] [address] [place] [address] Apr, [facility] [address] [id number] [address] [place] [address] Apr, Chronic pain G89.29 and DM n euro manif type II E11.49 [facility] [address] [id number] [address] [place] [address] Apr, [facility] [address] [id number] [address] [place] [address] Apr, Bipolar I disorder, most rec ent episode (or current) mixed, moderate F31.62 [facility] [address] [id number] [address] [place] [address] Apr, Chronic pain G89.29 [facility] [address] [id number] [address] [place] [address] Apr, Iliotibial band syndrome, le ft M76.32 [facility] [address] [id number] [address] [place] [address] Apr, Bipolar I disorder, most rec ent episode (or current) mixed, moderate F31.62 [facility] [address] [id number] [address] [place] [address] Mar, Bipolar I disorder, most rec ent episode (or current) mixed, moderate F31.62 [facility] [address] [id number] [address] [place] [id number] Mar, Bipolar I disorder, most rec ent episode (or current) mixed, moderate F31.62 [facility] [address] [id number] [address] [place] [id number] Mar, [facility] [address] [id number] [address] [place] [id number] Mar, Bipolar I disorder, most rec ent episode (or current) mixed, moderate F31.62 [facility] [address] [id number] [address] [place] [id number] Mar, Chronic pain G89.29 [facility] [address] [id number] [address] [place] [address] [id number] Mar, Bipolar I disorder, most rec ent episode (or current) mixed, moderate F31.62 [facility] [address] [facility] [id number] [address] [place] [id number] Mar, Bipolar I disorder, most rec ent episode (or current) mixed, moderate F31.62 [facility] [address] [facility] [id number] [address] [place] [id number] Mar, Acute pain of left knee M25. 562 ; Left hip pain M25.552 ; Generalized edema R60.1 and Tongue swelling R22.0 [facility] [address] [facility] [id number] [address] [place] [id number] Mar, [facility] [address] [facility] [id number] [address] [place] [id number] Feb, Chronic pain G89.29 [facility] [address] [place] [id number] [address] [place] [id number] Feb, Diabetes E11.9 [facility] [address] [facility] [id number] [address] [place] [id number] January, Chronic pain G89.29 [facility] [address] [facility] [id number] [address] [place] [phone] January, [facility] [address] [facility] [id number] [address] [place] [id number] January, Bipolar I disorder, most rec ent episode (or current) mixed, moderate F31.62 [facility] [address] [facility] [id number] [address] [place] [id number] Dec, Bipolar I disorder, most rec ent episode (or current) mixed, moderate F31.62 [facility] [address] [facility] [id number] [address] [place] [id number] Dec, Chronic pain G89.29 [facility] [address] [facility] [id number] [address] [place] [id number] Dec, Bipolar I disorder, most rec ent episode (or current) mixed, moderate F31.62 [facility] [address] [id number] [address] [place] [id number] Dec, Diabetes E11.9 ; Essential h ypertension I10 ; Chronic pain G89.29 and Morbid obesity E66.01 [facility] [address] [id number] [address] [place] [id number] Dec, [facility] [address] [id number] [address] [place] [id number] Dec, Bipolar I disorder, most rec ent episode (or current) mixed, moderate F31.62 [facility] [address] [facility] [id number] [address] [place] [id number] Dec, Bipolar I disorder, most rec ent episode (or current) mixed, moderate F31.62 [facility] [address] [facility] [id number] [address] [place] [id number] Nov, Chronic pain G89.29 [facility] [address] [id number] [address] [place] [id number] Nov, Bipolar I disorder, most rec ent episode (or current) mixed, moderate F31.62 [facility] [address] [facility] [id number] [address] [place] [id number] Nov, [facility] [address] [facility] [id number] [address] [place] [id number] Nov, Bipolar I disorder, most rec ent episode (or current) mixed, moderate F31.62 [facility] [address] [id number] [address] [place] [id number] Nov, Bipolar I disorder, most rec ent episode (or current) mixed, moderate F31.62 [facility] [address] [facility] [id number] [address] [place] [phone] Nov, [facility] [address] [facility] [id number] [address] [place] [id number] Nov, [facility] [address] [facility] [id number] [address] [place] [id number] Nov, [facility] [address] [facility] [id number] [address] [place] [id number] Oct, Chronic pain G89.29 [facility] [address] [facility] [id number] [address] [place] [id number] Oct, Bipolar I disorder, most rec ent episode (or current) mixed, moderate F31.62 [facility] [address] [facility] [id number] [address] [place] [phone] Oct, [facility] [address] [facility] [id number] [address] [place] [id number] Oct, Chronic pain G89.29 ; Diabet es E11.9 ; Anxiety F41.9 and 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 [facility] [address] [facility] [id number] [address] [place] [phone] Oct, [facility] [address] [facility] [id number] [address] [place] [phone] Oct, Diabetes E11.9 [facility] [address] [facility] [id number] [address] [place] [id number] Oct, Bipolar I disorder, most rec ent episode (or current) mixed, moderate F31.62 [facility] [address] [facility] [id number] [address] [place] [id number] Sep, Chronic pain G89.29 [facility] [address] [facility] [id number] [address] [place] [id number] Sep, Chronic pain G89.29 [facility] [address] [facility] [id number] [address] [place] [id number] Aug, Chronic pain G89.29 [facility] [address] [facility] [id number] [address] [place] [phone] Jul, [facility] [address] [facility] [id number] [address] [place] [id number] Jul, Diabetes E11.9 [facility] [address] [facility] [id number] [address] [place] [id number] Jul, Chronic pain G89.29 [facility] [address] [facility] [id number] [address] [place] [id number] Jul, Bipolar I disorder, most rec ent episode (or current) mixed, moderate F31.62 [place] [address] [facility] [id number] [address] [place] [id number] Jun, Bipolar I disorder, most rec ent episode (or current) mixed, moderate F31.62 [place] [address] [place] [id number] [address] [place] [id number] Jun, [place] [address] [place] [id number] [address] [place] [id number] Jun, Bipolar I disorder, most rec ent episode (or current) mixed, moderate F31.62 [place] [address] [place] [id number] [address] [place] [id number] May, Insomnia, unspecified type G 47.00 [place] [address] [facility] [id number] [address] [place] [id number] May, Bipolar I disorder, most rec ent episode (or current) mixed, moderate F31.62 [place] [address] [place] [id number] [address] [place] [id number] 14 May, 2016 [place] [address] [facility] [id number] [address] [place] [id number] 08 May, 2016 Bipolar I disorder, most rec ent episode (or current) mixed, moderate F31.62 [place] [address] [facility] [id number] [address] [place] [id number] 06 May, 2016 Diabetes E11.9 and Essential hypertension I10 [place] [address] [facility] [id number] [address] [place] [id number] Apr, Chronic pain G89.29 [facility] [address] [facility] [id number] [address] [place] [id number] Apr, Bipolar I disorder, most rec ent episode (or current) mixed, moderate F31.62 [place] [id number] [facility] [id number] [address] [place] [id number] Apr, [place] [address] [facility] [id number] [address] [place] [address] Apr, [place] [address] [facility] [id number] [address] [place] [id number] Mar, Chronic pain G89.29 ; Headac he, unspecified headache type R51 ; Neuropathy G62.9 ; Pain of right hip joint M25.551 and Essential hypertension I10 [place] [address] [place] [id number] [address] [place] [id number] Mar, Chronic pain G89.29 [place] [address] [facility] [id number] [address] [place] [id number] Mar, Bipolar I disorder, most rec ent episode (or current) mixed, moderate F31.62 [place] [address] [place] [id number] [address] [place] [id number] Feb, Bipolar I disorder, most rec ent episode (or current) mixed, moderate F31.62 and Insomnia, unspecified type G47.00 [place] [address] [facility] [id number] [address] [place] [id number] Feb, Chronic pain G89.29 [place] [address] [facility] [id number] [address] [place] [id number] Feb, Bipolar I disorder, most rec ent episode (or current) mixed, moderate F31.62 [place] [address] [facility] [id number] [address] [place] [id number] January, Bipolar I disorder, most rec ent episode (or current) mixed, moderate F31.62 [place] [address] [place] [id number] [address] [place] [address] January, Chronic pain G89.29 [facility] [address] [id number] [address] [place] [id number] January, Chronic pain G89.29 and Esse ntial hypertension I10 [facility] [address] [facility] [id number] [address] [place] [phone] January, Bipolar I disorder, most rec ent episode (or current) mixed, moderate F31.62 [facility] [address] [id number] [address] [place] [id number] Dec, [facility] [address] [facility] [id number] [address] [place] [id number] Dec, [facility] [address] [facility] [id number] [address] [place] [phone] Dec, [facility] [address] [facility] [id number] [address] [place] [phone] Dec, [facility] [address] [facility] [id number] [address] [place] [id number] Nov, Reactive airway disease J45. 909 [facility] [address] [facility] [id number] [address] [place] [id number] Nov, [facility] [address] [facility] [id number] [address] [place] [phone] Nov, [facility] [address] [facility] [id number] [address] [place] [phone] 30 Nov, 2015 [facility] [address] [facility] [id number] [address] [place] [address] Nov, [facility] [address] [place] [id number] [address] [place] [address] Nov, Onychomycosis B35.1 ; Hammer toe M20.40 ; [place] or callus L84 and DM neuro manif type II E11.49 [facility] [address] [facility] [id number] [address] [place] [address] Nov, Chronic pain G89.29 ; Leukoc ytosis D72.829 and Diabetes E11.9 [place] [address] [address] Nov, [place] [address] [address] Oct, Bronchitis J40 [place] [address] [address] Oct, [place] [address] [id number] Oct, [place] [address] [address] Oct, Mastoiditis, unspecified lat erality H70.90 and Type 2 diabetes mellitus with complication E11.8 [place] [address] [id number] Sep, [place] [address] [address] Sep, Dysuria R30.0 ; Cough R05 ; Benign prostatic hyperplasia with lower urinary tract symptoms, unspecified morphology N40.1 ; Hypokalemia E87.6 and Eustachian tube dysfunction, unspecified laterality H69.80 [place] [address] [address] Sep, Moderate mixed bipolar I dis order F31.62 [place] [address] [id number] Sep, Hypokalemia E87.6 [place] [address] [address] Sep, [place] [address] [address] Sep, Upper respiratory tract infe ction, unspecified type J06.9 [place] [address] [place] [id number] [address] [place] [id number] Aug, [facility] [address] [id number] [address] [place] [phone] Aug, Dysuria R30.0 [facility] [address] [id number] [address] [place] [phone] Aug, [facility] [address] [id number] [address] [place] [id number] Jul, [facility] [address] [id number] [address] [place] [id number] Jul, [facility] [address] [id number] [address] [place] [id number] Jul, [facility] [address] [id number] [address] [place] [id number] Jul, [facility] [address] [id number] [address] [place] [id number] Jun, [facility] [address] [id number] [address] [place] [phone] Jun, [facility] [address] [id number] [address] [place] [phone] Jun, [facility] [address] [id number] [address] [place] [phone] May, [facility] [address] [id number] [address] [place] [id number] May, Bipolar I disorder, most rec ent episode (or current) mixed, moderate 296.62 [facility] [address] [id number] [address] [place] [id number] 16 May, 2015 [facility] [address] [id number] [address] [place] [id number] 02 May, 2015 Bipolar I disorder, most rec ent episode (or current) mixed, moderate 296.62 and Major depressive disorder, recurrent episode, severe, specified as with psychotic behavior 296.34 [facility] [address] [facility] [id number] [address] [place] [id number] May, Bipolar I disorder, most rec ent episode (or current) mixed, moderate 296.62 [facility] [address] [facility] [id number] [address] [place] [address] May, [facility] [address] [facility] [id number] [address] [place] [phone] Apr, [facility] [address] [facility] [id number] [address] [place] [id number] Apr, [facility] [address] [facility] [id number] [address] [place] [id number] Apr, Unspecified disorder of kidn ey and ureter 593.9 and Diabetes mellitus type 2, uncontrolled 250.02 [facility] [address] [place] [id number] [address] [place] [phone] Apr, [facility] [address] [facility] [id number] [address] [place] [id number] Apr, [facility] [address] [facility] [id number] [address] [place] [id number] Apr, [facility] [address] [facility] [id number] [address] [place] [phone] Apr, [facility] [address] [facility] [id number] [address] [place] [address] Apr, Diabetes mellitus type II, u ncontrolled 250.02 [facility] [address] [facility] [id number] [address] [place] [id number] Apr, [facility] [address] [facility] [id number] [address] [place] [id number] Mar, [facility] [address] [facility] [id number] [address] [place] [id number] Mar, [facility] [address] [facility] [id number] [address] [place] [phone] Mar, [facility] [address] [place] [id number] [address] [place] [id number] Mar, Major depressive disorder, r ecurrent episode, severe, specified as with psychotic behavior 296.34 and Bipolar I disorder, most recent episode (or current) mixed, moderate 296.62 [facility] [address] [place] [id number] [address] [place] [id number] Mar, Diabetes 250.00 ; Anuria 788 .5 ; Nausea and vomiting 787.01 and Diarrhea 787.91 [facility] [address] [place] [id number] [address] [place] [address] Mar, Diabetes 250.00 [facility] [address] [address] Mar, [facility] [address] [place] [id number] [address] [place] [address] Mar, Diabetes 250.00 [facility] [address] [place] [id number] [address] [place] [phone] Mar, [facility] [address] [place] [id number] [address] [place] [id number] Mar, [facility] [address] [place] [id number] [address] [place] [address] Mar, [facility] [address] [place] [id number] [address] [place] [id number] Mar, [facility] [address] [place] [id number] [address] [place] [id number] Mar, Bipolar I disorder, most rec ent episode (or current) mixed, moderate 296.62 and Major depressive disorder, recurrent episode, severe, specified as with psychotic behavior 296.34 [facility] [address] [place] [id number] [address] [place] [id number] Mar, Magnesium deficiency 275.2 ; Hypokalemia 276.8 ; Nausea & vomiting 787.01 and Diabetes mellitus type 2, uncontrolled 250.02 [facility] [address] [place] [id number] [address] [place] [id number] Feb, [facility] [address] [address] Feb, Bipolar I disorder, most rec ent episode (or current) mixed, moderate 296.62 [facility] [address] [address] Feb, Nausea and vomiting 787.01 ; Left elbow pain 719.42 ; Anuria 788.5 and Diabetes 250.00 [facility] [address] [address] Feb, [facility] [address] [address] Feb, Hypopotassemia 276.8 and Hyp okalemia 276.8 [place] [address] [address] Feb, Hypopotassemia 276.8 and Hyp okalemia 276.8 [place] [address] [address] Feb, Seborrheic keratoses 702.19 [facility] [address] [place] [id number] [address] [place] [address] Feb, Hypopotassemia 276.8 and Low magnesium levels 275.2 [facility] [address] [place] [id number] [address] [place] [id number] January, [facility] [address] [place] [id number] [address] [place] [address] January, [facility] [address] [address] January, [facility] [address] [place] [id number] [address] [place] [id number] January, Scalp lesion 709.9 [facility] [address] [address] January, [facility] [address] [id number] [address] [place] [id number] Dec, Tear of medial cartilage or meniscus of knee, current 836.0 and 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 [facility] [address] [id number] [address] [place] [id number] Dec, [facility] [address] [id number] [address] [place] [phone] Dec, [facility] [address] [id number] [address] [place] [id number] Dec, Squamous cell carcinoma, 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 [facility] [address] [id number] [address] [place] [id number] [address], [address] [facility] [address] [id number] [address] [place] [id number] Dec, [facility] [address] [id number] [address] [place] [id number] Nov, [facility] [address] [id number] [address] [place] [id number] Nov, [facility] [address] [id number] [address] [place] [id number] Nov, [facility] [address] [id number] [address] [place] [id number] Nov, [facility] [address] [id number] [address] [place] [id number] Nov, [facility] [address] [id number] [address] [place] [id number] Nov, [facility] [address] [id number] [address] [place] [id number] Nov, [facility] [address] [id number] [address] [place] [id number] Nov, [facility] [address] [id number] [address] [place] [address], [place] [id number] Nov, [facility] [address] [id number] [address] [place] [address], [place] [id number] Nov, [facility] [address] [id number] [address] [place] [address], [place] [id number] Nov, [facility] [address] [id number] [address] [place] [address], [place] [id number] Nov, [facility] [address] [id number] [address] [place] [address], [place] [id number] Oct, 2014 [facility] [address] [id number] [address] [place] [address], [place] [id number] Oct, 2014 [facility] [address] [id number] [address] [place] [address], [place] [id number] Oct, 2014 [facility] [address] [id number] [address] [place] [address], [place] [id number] Oct, 2014 [facility] [address] [id number] [address] [place] [address], [place] [id number] Oct, 2014 [facility] [address] [id number] [address] [place] [address], [place] [id number] Oct, 2014 [facility] [address] [id number] [address] [place] [address], [place] [id number] Oct, 2014 [facility] [address] [id number] [address] [place] [id number] Oct, 2014 [facility] [address] [id number] [address] [place] [address], [place] [id number] Oct, [facility] [address] [id number] [address] [place] [address], [place] [id number] Sep, [facility] [address] [id number] [address] [place] [id number] Sep, [facility] [address] [id number] [address] [place] [id number] Sep, [facility] [address] [id number] [address] [place] [address], [place] [id number] Sep, [facility] [address] [id number] [address] [place] [address], [place] [address] Sep, [facility] [address] [id number] [address] [place] [address], [place] [address] Sep, [facility] [address] [id number] [address] [place] [address], [place] [address] Sep, [facility] [address] [id number] [address] [place] [address], [place] [address] Sep, [facility] [address] [id number] [address] [place] [address], [place] [address] Sep, [facility] [address] [id number] [address] [place] [address], [place] [address] Sep, [facility] [address] [id number] [address] [place] [address], [place] [address] Sep, [facility] [address] [id number] [address] [place] [address], [place] [address] Sep, [facility] [address] [id number] [address] [place] [address], [place] [address] Sep, [facility] [address] [id number] [address] [place] [address], [place] [address] Sep, [facility] [address] [id number] [address] [place] [address], [place] [address] Sep, [facility] [address] [id number] [address] [place] [address], [place] [address] Sep, [facility] [address] [id number] [address] [place] [address], [place] [address] Aug, [facility] [address] [id number] [address] [place] [address], [place] [address] Aug, [facility] [address] [id number] [facility] [place] [address] Aug, [facility] [address] [id number] [facility] [place] [address] Aug, [facility] [address] [id number] [facility] [place] [address] Aug, [facility] [address] [id number] [facility] [place] [address] Aug, [facility] [address] [id number] [facility] [place] [address] Aug, [facility] [address] [id number] [address] [place] [address], [place] [address] Aug, [facility] [address] [id number] [address] [place] [address], [place] [address] Aug, [facility] [address] [id number] [address] [place] [address], [place] [address] Aug, [facility] [address] [id number] [address] [place] [address], [place] [address] Aug, [facility] [address] [place] [id number] Aug, [facility] [address] [id number] [address] [place] [address], [place] [address] Aug, [facility] [address] [id number] [address] [place] [address], [place] [address] Aug, [facility] [address] [id number] [address] [place] [address], [place] [address] Aug, [facility] [address] [id number] [address] [place] [address], [place] [address] Aug, [facility] [address] [id number] [facility] [place] [address] Aug, [facility] [address] [id number] [address] [place] [address], [place] [address] Aug, [facility] [address] [id number] [address] [place] [address], [place] [address] Aug, [facility] [address] [id number] [address] [place] [address], [place] [address] Aug, [facility] [address] [id number] [address] [place] [address], [place] [address] Aug, [facility] [address] [id number] [address] [place] [address], [place] [address] Aug, [facility] [address] [id number] [address] [place] [address], [place] [address] Aug, [facility] [address] [id number] [address] [place] [address], [place] [address] Aug, [facility] [address] [id number] [address] [place] [address], [place] [address] Aug, [facility] [address] [id number] [address] [place] [address], [place] [address] Aug, [facility] [address] [id number] [address] [place] [address], [place] [address] Aug, [facility] [address] [id number] [address] [place] [address], [place] [address] Aug, [facility] [address] [id number] [address] [place] [address], [place] [address] Aug, [facility] [address] [id number] [address] [place] [address], [place] [address] Aug, [facility] [address] [id number] [address] [place] [address], [place] [address] Jul, [facility] [address] [id number] [address] [place] [address], [place] [address] Jul, [facility] [address] [id number] [address] [place] [address], [place] [address] Jul, [facility] [address] [id number] [address] [place] [address], [place] [address] Jul, [facility] [address] [id number] [address] [place] [address], [place] [address] Jul, [facility] [address] [id number] [address] [place] [address], [place] [address] Jul, [facility] [address] [id number] [address] [place] [address], [place] [address] Jul, [facility] [address] [id number] [address] [place] [address], [place] [address] Jul, [facility] [address] [id number] [address] [place] [address], [place] [address] Jul, [facility] [address] [id number] [address] [place] [address], [place] [address] Jul, [facility] [address] [id number] [address] [place] [address], [place] [address] Jun, [facility] [address] [id number] [address] [place] [address], [place] [address] Jun, [facility] [address] [id number] [address] [place] [address], [place] [address] Jun, [facility] [address] [id number] [address] [place] [address], [place] [address] Jun, [facility] [address] [id number] [address] [place] [address] Jun, [facility] [address] [id number] [address] [place] [address] Jun, [facility] [address] [id number] [address] [place] [address], [place] [address] Jun, [facility] [address] [id number] [address] [place] [address], [place] [address] Jun, [facility] [address] [id number] [address] [place] [address], [place] [address] Jun, [facility] [address] [id number] [address] [place] [address], [place] [address] Jun, 2013 [facility] [address] [id number] [address] [place] [address], [place] [address] 29 Sep, 2013 [facility] [address] [id number] [address] [place] [address], [place] [address] 29 Sep, 2013 [facility] [address] [id number] [address] [place] [address], [place] [address] 26 Sep, 2013 [facility] [address] [id number] [address] [place] [address], [place] [address] 26 Sep, 2013 [facility] [address] [id number] [address] [place] [address], [place] [address] 17 Sep, 2013 [facility] [address] [id number] [address] [place] [address], [place] [address] 17 Sep, 2013 [facility] [address] [id number] [address] [place] [address], [place] [address] 15 May, 2013 [facility] [address] [id number] [address] [place] [address], [place] [address] 15 Sep, 2013 [facility] [address] [id number] [address] [place] [address], [place] [address] 15 May, 2013 [facility] [address] [id number] [address] [place] [address], [place] [address] 15 Sep, 2013 [facility] [address] [id number] [address] [place] [address], [place] [address] 10 Sep, 2013 [facility] [address] [id number] [address] [place] [address], [place] [address] 10 Sep, 2013 [facility] [address] [id number] [address] [place] [address], [place] [address] 09 Sep, 2013 [facility] [address] [id number] [address] [place] [address], [place] [address] 09 Sep, 2013 [facility] [address] [id number] [address] [place] [address], [place] [address] May, [facility] [address] [id number] [address] [place] [address], [place] [address] May, [facility] [address] [id number] [address] [place] [address], [place] [address] Apr, [facility] [address] [id number] [address] [place] [address], [place] [address] Apr, [facility] [address] [id number] [address] [place] [address], [place] [address] Apr, [facility] [address] [id number] [address] [place] [address], [place] [address] Apr, [facility] [address] [id number] [address] [place] [address], [place] [address] Apr, [facility] [address] [id number] [address] [place] [address], [place] [address] Apr, [facility] [address] [id number] [address] [place] [address], [place] [address] Apr, [facility] [address] [id number] [address] [place] [address], [place] [address] Apr, [facility] [address] [id number] [address] [place] [address], [place] [address] Apr, [facility] [address] [id number] [address] [place] [address], [place] [address] Apr, [facility] [address] [id number] [address] [place] [address], [place] [address] Apr, [facility] [address] [id number] [address] [place] [address], [place] [address] Apr, [facility] [address] [id number] [address] [place] [address], [place] [address] Apr, [facility] [address] [id number] [address] [place] [address], [place] [address] Apr, [facility] [address] [id number] [address] [place] [address], [place] [address] Apr, [facility] [address] [id number] [facility] [place] [address] Mar, 2013 [facility] [address] [id number] [address] [place] [address], [place] [address] Mar, [facility] [address] [id number] [address] [place] [address], [place] [address] Mar, [facility] [address] [id number] [address] [place] [address], [place] [address] Mar, [facility] [address] [id number] [address] [place] [address], [place] [address] Mar, [facility] [address] [id number] [address] [place] [address], [place] [address] Mar, [facility] [address] [id number] [address] [place] [address], [place] [address] Mar, [facility] [address] [id number] [address] [place] [address], [place] [address] Mar, [facility] [address] [id number] [address] [place] [address], [place] [address] Mar, [facility] [address] [id number] [address] [place] [address], [place] [address] Mar, [facility] [address] [id number] [address] [place] [address], [place] [address] Mar, 2013 [facility] [address] [id number] [address] [place] [address], [place] [address] Mar, 2013 [facility] [address] [id number] [address] [place] [address], [place] [address] Mar, 2013 [facility] [address] [id number] [address] [place] [address], [place] [address] Mar, 2013 [facility] [address] [id number] [address] [place] [address], [place] [address] Mar, 2013 [facility] [address] [id number] [facility] [place] [address] Mar, [facility] [address] [id number] [facility] [place] [address] Mar, [facility] [address] [id number] [facility] [place] [address] Mar, [facility] [address] [id number] [facility] [place] [address] Feb, [facility] [address] [id number] [facility] [place] [address] Feb, [facility] [address] [id number] [address] [place] [address], [place] [address] Feb, [facility] [address] [id number] [address] [place] [address], [place] [address] Feb, [facility] [address] [id number] [address] [place] [address], [place] [address] Feb, [facility] [address] [id number] [address] [place] [address], [place] [address] Feb, [facility] [address] [id number] [address] [place] [address], [place] [address] Feb, [facility] [address] [id number] [address] [place] [address], [place] [address] Feb, [facility] [address] [id number] [address] [place] [address], [place] [address] Feb, [facility] [address] [id number] [address] [place] [address], [place] [address] Feb, [facility] [address] [id number] [address] [place] [address], [place] [address] Feb, [facility] [address] [id number] [address] [place] [address], [place] [address] Feb, [facility] [address] [id number] [address] [place] [address], [place] [address] Feb, [facility] [address] [id number] [facility] [place] [address] Feb, [facility] [address] [id number] [facility] [place] [address] January, [facility] [address] [id number] [facility] [place] [address] January, [facility] [address] [id number] [address] [place] [address], [place] [address] January, [facility] [address] [id number] [facility] [place] [address] January, [facility] [address] [id number] [address] [place] [address], [place] [address] January, [facility] [address] [id number] [address] [place] [address], [place] [address] January, [facility] [address] [id number] [address] [place] [address], [place] [address] January, [facility] [address] [id number] [address] [place] [address], [place] [address] January, [facility] [address] [id number] [address] [place] [address], [place] [address] January, [facility] [address] [id number] [address] [place] [address], [place] [address] January, [facility] [address] [id number] [address] [place] [address], [place] [address] January, [facility] [address] [id number] [address] [place] [address], [place] [address] January, [facility] [address] [id number] [address] [place] [address], [place] [address] January, [facility] [address] [id number] [address] [place] [address], [place] [address] January, [facility] [address] [id number] [facility] [place] [address] Dec, [facility] [address] [id number] [address] [place] [address], [place] [address] Dec, [facility] [address] [id number] [address] [place] [address], [place] [address] Dec, [facility] [address] [id number] [address] [place] [address], [place] [address] Dec, [facility] [address] [id number] [address] [place] [address], [place] [address] Dec, [facility] [address] [id number] [address] [place] [address], [place] [address] Dec, [facility] [address] [id number] [address] [place] [address], [place] [address] Dec, [facility] [address] [id number] [address] [place] [address], [place] [address] Dec, [facility] [address] [id number] [address] [place] [address], [place] [address] Dec, [facility] [address] [id number] [address] [place] [address], [place] [address] Dec, [facility] [address] [id number] [address] [place] [address], [place] [address] Nov, [facility] [address] [id number] [address] [place] [address], [place] [address] Nov, [facility] [address] [id number] [address] [place] [address], [place] [address] Nov, [facility] [address] [id number] [address] [place] [address], [place] [address] Nov, [facility] [address] [id number] [address] [place] [address], [place] [address] Nov, [facility] [address] [id number] [address] [place] [address], [place] [address] Nov, [facility] [address] [id number] [address] [place] [address], [place] [address] Nov, [facility] [address] [id number] [address] [place] [address], [place] [address] Nov, [facility] [address] [id number] [address] [place] [address], [place] [address] Nov, [facility] [address] [id number] [address] [place] [address], [place] [address] Nov, [facility] [address] [id number] [address] [place] [address], [place] [address] Oct, [facility] [address] [id number] [address] [place] [address], [place] [address] Oct, [facility] [address] [id number] [address] [place] [address], [place] [address] Oct, [facility] [address] [id number] [address] [place] [address], [place] [address] Oct, [facility] [address] [id number] [address] [place] [address], [place] [address] Oct, [facility] [address] [id number] [address] [place] [address], [place] [address] Oct, [facility] [address] [id number] [address] [place] [address], [place] [address] Oct, [facility] [address] [id number] [address] [place] [address], [place] [address] Oct, [facility] [address] [id number] [address] [place] [address], [place] [address] Oct, [facility] [address] [id number] [address] [place] [address], [place] [address] Oct, [facility] [address] [id number] [address] [place] [address], [place] [address] Oct, [facility] [address] [id number] [address] [place] [address], [place] [address] Oct, [facility] [address] [id number] [address] [place] [address], [place] [address] Oct, [facility] [address] [id number] [address] [place] [address], [place] [address] Oct, [facility] [address] [id number] [address] [place] [address], [place] [address] Sep, [facility] [address] [id number] [address] [place] [address], [place] [address] Sep, [facility] [address] [id number] [address] [place] [address], [place] [address] Sep, [facility] [address] [id number] [address] [place] [address], [place] [address] Sep, [facility] [address] [id number] [address] [place] [address], [place] [address] Sep, [facility] [address] [id number] [address] [place] [address], [place] [address] Sep, [facility] [address] [id number] [address] [place] [address], [place] [address] Sep, [facility] [address] [id number] [address] [place] [address], [place] [address] Sep, [facility] [address] [id number] [address] [place] [address], [place] [address] Sep, [facility] [address] [id number] [address] [place] [address], [place] [address] Sep, [facility] [address] [id number] [address] [place] [address], [place] [address] Aug, [facility] [address] [id number] [address] [place] [address], [place] [address] Aug, [facility] [address] [id number] [address] [place] [address], [place] [address] Jul, [facility] [address] [id number] [address] [place] [address], [place] [address] Jul, [facility] [address] [id number] [address] [place] [address], [place] [address] Jul, [facility] [address] [id number] [address] [place] [address], [place] [address] Jul, [facility] [address] [id number] [address] [place] [address], [place] [address] Jul, [facility] [address] [id number] [address] [place] [address], [place] [address] Jul, [facility] [address] [id number] [address] [place] [address], [place] [address] Jul, [facility] [address] [id number] [address] [place] [address], [place] [address] Jul, [facility] [address] [id number] [address] [place] [address], [place] [address] Jul, [facility] [address] [id number] [address] [place] [address], [place] [address] Jul, [facility] [address] [id number] [address] [place] [address] Jul, [facility] [address] [id number] [address] [place] [address], [place] [id number] Jul, [facility] [address] [id number] [address] [place] [id number] Jul, [facility] [address] [id number] [address] [place] [address], [place] [address] Jul, [facility] [address] [id number] [address] [place] [id number] Jul, [facility] [address] [id number] [address] [place] [address], [place] [address] Jul, [facility] [address] [id number] [address] [place] [address], [place] [address] Jul, [facility] [address] [id number] [address] [place] [address], [place] [address] Jul, 2012 [facility] [address] [id number] [address] [place] [address], [place] [address] Jul, 2012 [facility] [address] [id number] [address] [place] [address], [place] [address] Jun, 2012 [facility] [address] [id number] [address] [place] [address], [place] [address] Jun, 2012 [facility] [address] [id number] [address] [place] [address], [place] [address] Jun, 2012 [facility] [address] [id number] [address] [place] [address], [place] [address] Jun, 2012 [facility] [address] [id number] [address] [place] [address], [place] [address] Jun, 2012 [facility] [address] [id number] [address] [place] [address], [place] [address] Jun, 2012 [facility] [address] [id number] [address] [place] [address], [place] [address] Jun, 2012 [facility] [address] [id number] [address] [place] [address], [place] [address] Jun, [facility] [address] [id number] [address] [place] [address], [place] [address] Jun, 2012 [facility] [address] [id number] [address] [place] [id number] Jun, 2012 [facility] [address] [id number] [address] [place] [address], [place] [address] Jun, [facility] [address] [id number] [address] [place] [address], [place] [address] May, [facility] [facility] [address] [id number] [address] [place] [address], [place] [address] 25 May, 2013 [facility] [address] [id number] [address] [place] [address], [place] [address] 19 May, 2012 [facility] [address] [id number] [address] [place] [address], [place] [address] 17 May, 2012 [facility] [address] [id number] [address] [place] [address], [place] [address] 11 May, 2012 [facility] [address] [id number] [address] [place] [address], [place] [address] 10 May, 2012 [facility] [address] [id number] [address] [place] [address], [place] [address] 09 May, 2013 [facility] [address] [id number] [address] [place] [address], [place] [address] 05 May, 2013 [facility] [address] [id number] [address] [place] [address], [place] [address] Apr, [facility] [address] [id number] [address] [place] [address], [place] [address] Apr, [facility] [address] [id number] [address] [place] [address], [place] [address] Apr, [facility] [address] [id number] [address] [place] [address], [place] [address] Apr, [facility] [address] [id number] [address] [place] [address], [place] [address] Apr, [facility] [address] [id number] [address] [place] [address], [place] [address] Mar, [facility] [address] [id number] [address] [place] [address], [place] [address] Mar, [facility] [address] [id number] [address] [place] [address], [place] [address] Mar, [facility] [address] [id number] [address] [place] [address], [place] [address] Mar, [facility] [address] [id number] [address] [place] [address], [place] [address] Mar, [facility] [address] [id number] [address] [place] [address], [place] [address] Mar, [facility] [address] [id number] [address] [place] [address], [place] [address] Mar, [facility] [address] [id number] [address] [place] [address], [place] [address] Mar, [facility] [address] [id number] [address] [place] [address], [place] [address] Feb, [facility] [address] [id number] [address] [place] [address], [place] [address] Feb, [facility] [address] [id number] [address] [place] [address], [place] [address] January, [facility] [address] [id number] [address] [place] [address], [place] [address] January, [facility] [address] [id number] [address] [place] [address], [place] [address] Dec, [facility] [address] [id number] [address] [place] [address], [place] [address] Dec, [facility] [address] [id number] [address] [place] [address], [place] [address] Nov, [facility] [address] [id number] [address] [place] [address], [place] [address] Nov, [facility] [address] [id number] [address] [place] [address], [place] [address] Nov, [facility] [address] [id number] [address] [place] [address], [place] [address] Nov, [facility] [address] [id number] [address] [place] [address], [place] [address] Oct, [facility] [address] [id number] [address] [place] [address], [place] [address] Oct, [facility] [address] [id number] [address] [place] [address], [place] [address] 26 Oct, 2012 [facility] [address] [id number] [address] [place] [address], [place] [address] 26 Oct, 2012 [facility] [address] [id number] [address] [place] [address], [place] [address] 16 Oct, 2012 [facility] [address] [id number] [address] [place] [address], [place] [address] 14 Oct, 2012 [facility] [address] [id number] [address] [place] [address], [place] [address] 08 Oct, 2012 [facility] [address] [id number] [address] [place] [address], [place] [address] 07 Oct, 2012 [facility] [address] [id number] [address] [place] [address], [place] [id number] 03 Oct, 2012 [facility] [address] [id number] [address] [place] [address], [place] [address] 30 Sep, 2012 [facility] [address] [id number] [address] [place] [address], [place] [address] Sep, [facility] [address] [id number] [address] [place] [address], [place] [address] Sep, [facility] [address] [id number] [address] [place] [address], [place] [address] Sep, [facility] [address] [id number] [address] [place] [address], [place] [address] Sep, [facility] [address] [id number] [address] [place] [address], [place] [address] Sep, [facility] [address] [id number] [address] [place] [address], [place] [address] 09 Sep, 2012 [facility] [address] [id number] [address] [place] [address], [place] [address] 08 Sep, 2012 [facility] [address] [id number] [address] [place] [address], [place] [address] Aug, [facility] [address] [id number] [address] [place] [address], [place] [address] Aug, [facility] [address] [id number] [address] [place] [address], [place] [address] Aug, [facility] [address] [id number] [address] [place] [address], [place] [address] Aug, [facility] [address] [id number] [address] [place] [address], [place] [address] Aug, [facility] [address] [id number] [address] [place] [address], [place] [address] Aug, [facility] [address] [id number] [address] [place] [address], [place] [address] Aug, [facility] [address] [id number] [address] [place] [address], [place] [address] Aug, [facility] [address] [id number] [address] [place] [address], [place] [address] Jul, [facility] [address] [id number] [address] [place] [address], [place] [address] Jul, [facility] [address] [id number] [address] [place] [address], [place] [address] Jul, [facility] [address] [id number] [address] [place] [address], [place] [address] Jul, [facility] [address] [id number] [address] [place] [address] Jul, [facility] [address] [id number] [address] [place] [address], [place] [address] Jul, [facility] [address] [id number] [address] [place] [address], [place] [address] Jun, [facility] [address] [id number] [address] [place] [address], [place] [address] Jun, [facility] [address] [id number] [address] [place] [address], [place] [address] 23 Jun, 2012 [facility] [address] [id number] [address] [place] [address], [place] [address] 23 Jun, 2012 [facility] [address] [id number] [address] [place] [address], [place] [address] 22 Jun, 2012 [facility] [address] [id number] [address] [place] [address], [place] [address] 19 Jun, 2012 [facility] [address] [id number] [address] [place] [address], [place] [address] 19 Jun, 2012 [facility] [address] [id number] [address] [place] [address], [place] [address] 10 Jun, 2012 [facility] [address] [id number] [address] [place] [address], [place] [address] 10 Jun, 2012 [facility] [address] [id number] [address] [place] [address], [place] [address] 26 May, 2012 [facility] [address] [id number] [address] [place] [address], [place] [address] 24 May, 2012 [facility] [address] [id number] [address] [place] [address], [place] [address] 18 May, 2012 [facility] [address] [id number] [address] [place] [address], [place] [address] 30 Apr, 2012 [facility] [address] [id number] [address] [place] [address], [place] [address] 29 Apr, 2012 [facility] [address] [id number] [address] [place] [address], [place] [address] 18 Apr, 2012 [facility] [address] [id number] [address] [place] [address], [place] [address] 14 Apr, 2012 [facility] [address] [id number] [address] [place] [address], [place] [address] 10 Apr, 2012 [facility] [address] [id number] [address] [place] [address], [place] [address] Apr, [facility] [address] [id number] [address] [place] [address], [place] [address] Mar, [facility] [address] [id number] [address] [place] [address], [place] [address] Mar, [facility] [address] [id number] [address] [place] [address], [place] [address] Mar, [facility] [address] [id number] [address] [place] [address], [place] [address] Mar, [facility] [address] [id number] [address] [place] [address], [place] [address] Feb, [facility] [address] [id number] [address] [place] [address], [place] [address] Feb, [facility] [address] [id number] [address] [place] [address], [place] [address] Feb, [facility] [address] [id number] [address] [place] [address], [place] [address] Feb, [facility] [address] [id number] [address] [place] [address], [place] [address] Feb, [facility] [address] [id number] [address] [place] [address], [place] [address] January, [facility] [address] [id number] [address] [place] [address], [place] [address] January, [facility] [address] [id number] [address] [place] [address], [place] [address] January, [facility] [address] [id number] [address] [place] [address], [place] [address] January, [facility] [address] [id number] [address] [place] [address], [place] [address] January, [facility] [address] [id number] [address] [place] [address], [place] [address] January, [facility] [address] [id number] [address] [place] [address], [place] [address] 24 Dec, 2011 [facility] [address] [id number] [address] [place] [address], [place] [address] 24 Dec, 2011 [facility] [address] [id number] [address] [place] [address], [place] [address] 17 Dec, 2011 [facility] [address] [id number] [address] [place] [address], [place] [address] 09 Dec, 2011 [facility] [address] [id number] [address] [place] [address], [place] [address] 06 Dec, 2011 [facility] [address] [id number] [address] [place] [address], [place] [address] 27 Nov, 2011 [facility] [address] [id number] [address] [place] [address], [place] [address] 14 Nov, 2011 [facility] [address] [id number] [address] [place] [address], [place] [address] 12 Nov, 2011 [facility] [address] [id number] [address] [place] [address], [place] [address] 07 Nov, 2011 [facility] [address] [id number] [address] [place] [address], [place] [address] 29 Oct, 2011 [facility] [address] [id number] [address] [place] [address], [place] [address] 28 Oct, 2011 [facility] [address] [id number] [address] [place] [address], [place] [address] 24 Oct, 2011 [facility] [address] [id number] [address] [place] [address], [place] [address] 13 Oct, 2011 [facility] [address] [id number] [address] [place] [address], [place] [address] 08 Oct, 2011 [facility] [address] [id number] [address] [place] [address], [place] [address] 31 Sep, 2011 [facility] [address] [id number] [address] [place] [address], [place] [address] Sep, [facility] [address] [id number] [address] [place] [address], [place] [address] Sep, [facility] [address] [id number] [address] [place] [address], [place] [address] Sep, [facility] [address] [id number] [address] [place] [address], [place] [address] Sep, [facility] [address] [id number] [address] [place] [address], [place] [address] Sep, [facility] [address] [id number] [address] [place] [address], [place] [address] Aug, [facility] [address] [id number] [address] [place] [address], [place] [address] Aug, [facility] [address] [id number] [address] [place] [address], [place] [address] Aug, [facility] [address] [id number] [address] [place] [address], [place] [address] Jul, [facility] [address] [id number] [address] [place] [address], [place] [address] Jul, [facility] [address] [id number] [address] [place] [address], [place] [address] Jul, [facility] [address] [id number] [address] [place] [address], [place] [address] Jul, [facility] [address] [id number] [address] [place] [address], [place] [address] Jun, [facility] [address] [id number] [address] [place] [address], [place] [address] Jun, [facility] [address] [id number] [address] [place] [address], [place] [address] Jun, [facility] [address] [id number] [address] [place] [address], [place] [address] Jun, [facility] [address] [id number] [address] [place] [address], [place] [address] 10 Jun, 2011 [facility] [address] [id number] [address] [place] [address], [place] [address] 10 Jun, 2011 [facility] [address] [id number] [address] [place] [address], [place] [address] 11 Mar, 2011 [facility] [address] [id number] [address] [place] [address], [place] [address] 18 Dec, 2010 [facility] [address] [id number] [address] [place] [address], [place] [address] 11 Dec, 2010 [facility] [address] [id number] [address] [place] [address], [place] [address] 18 Nov, 2010 [facility] [address] [id number] [address] [place] [address], [place] [address] 16 Nov, 2010 [facility] [address] [id number] [address] [place] [address], [place] [address] 10 Sep, 2010 [facility] [address] [id number] [address] [place] [address], [place] [address] 31 Aug, 2010 [facility] [address] [id number] [address] [place] [address], [place] [address] 29 Aug, 2010 [facility] [address] [id number] [address] [place] [address], [place] [address] 29 Aug, 2010 [facility] [address] [id number] [address] [place] [address], [place] [address] 29 Aug, 2010 [facility] [address] [id number] [address] [place] [address], [place] [address] 27 Aug, 2010 [facility] [address] [id number] [address] [place] [address], [place] [address] 14 Aug, 2010 [facility] [address] [id number] [address] [place] [address], [place] [address] 08 Aug, 2010 [facility] [address] [id number] [address] [place] [address], [place] [address] 08 Aug, 2010 [facility] [address] [id number] [address] [place] [address], [place] [address] Aug, [facility] [address] [id number] [address] [place] [address], [place] [address] Aug, [facility] [address] [id number] [address] [place] [address], [place] [address] Aug, [facility] [address] [id number] [address] [place] [address], [place] [address] Aug, [facility] [address] [id number] [address] [place] [address], [place] [address] Jul, [facility] [address] [id number] [address] [place] [address], [place] [address] Jul, [facility] [address] [id number] [address] [place] [address], [place] [address] Jul, [facility] [address] [id number] [address] [place] [address], [place] [address] Jul, [facility] [address] [id number] [address] [place] [address], [place] [address] Jul, [facility] [address] [id number] [address] [place] [address], [place] [address] Jul, [facility] [address] [id number] [address] [place] [address], [place] [address] 24 Jun, 2010 [facility] [address] [id number] [address] [place] [address], [place] [address] Jun, [facility] [address] [id number] [address] [place] [address], [place] [address] Jun, [facility] [address] [id number] [address] [place] [address], [place] [id number] Jun, [facility] [address] [id number] [address] [place] [address], [place] [id number] 16 Apr, 2010 [facility] [address] [id number] [address] [place] [address], [place] [id number] Mar, [facility] [address] [id number] [address] [place] [id number] Feb, [facility] [address] [id number] [address] [place] [id number] January, [facility] [address] [id number] [address] [place] [id number] 15 Dec, 2009 [facility] [address] [id number] [address] [place] [id number] Nov, [facility] [address] [id number] [address] [place] [address], [place] [id number] Aug, [facility] [address] [id number] [address] [place] [id number] Aug, [facility] [address] [id number] [address] [place] [address], [place] [id number] Aug, [facility] [address] [id number] [address] [place] [id number] Jul, [facility] [address] [id number] [address] [place] [id number] Jul, [facility] [address] [id number] [address] [place] [id number] Jul, [facility] [address] [id number] [address] [place] [id number] 30 Jun, 2009 [facility] [address] [id number] [address] [place] [id number] 29 Jun, 2009 [facility] [address] [id number] [address] [place] [id number] Jun, [facility] [address] [id number] [address] [place] [id number] Jun, [facility] [address] [id number] [address] [place] [id number] Jun, [facility] [address] [id number] [address] [place] [id number] Jun, [facility] [address] [facility] [id number] [address] [place] [id number] Apr, [facility] [address] [facility] [id number] [address] [place] [id number] Apr, [facility] [address] [facility] [id number] [address] [place] [id number] Feb, [facility] [address] [facility] [id number] [address] [place] [id number] January, [facility] [address] [facility] [id number] [address] [place] [id number] Dec, IMMUNIZATIONS No Known Immunizations SOCIAL HISTORY [...] History inability to urinate 09/16/15 Hospitalization History [facility] inpatient mental health ea rly 1999' Hospitalization History hyperkalemia 10/2017 Hospitalization History fluid in lung
--- OUTSIDE RECORDS SUMMARY | 2020-03-01 18:12 | XMS REPORT ---
Author Author Michele WASHBURN Organization [facility] Address [address] [place] [address] Care Team Providers Care Marketing Analytics Lead Name Role Phone NOEMI WASHBURN Unavailable PROBLEMS Type Condition ICD9-CM Code TTO92-BV Code Onset Dates Condition S tatus SNOMED Code Problem Cough R05 Active 36088192 Problem Benign prostatic hyperplasia with lower urinary tract symptoms, unspecified morphology N40.1 Active 41797 6007 Problem Eustachian tube dysfunction, unspecified laterality H69.80 Active 63958846 Problem Chronic pain G89.29 Active 4420424 1 Problem DM neuro manif type II E11.49 Active 86555321 Problem Diabetes E11.9 Active 71380916 Problem Leukocytosis D72.829 Active 1296127 06 Problem Falling R29.6 Active 343527849 Problem Pressure ulcer of other site, stage 3 L89.893 Active 752558370 Problem 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 Active 610281849 Problem Eye exam abnormal R93.8 Active 16 7827116 Problem Dysuria R30.0 Active 06702568 Problem Hypokalemia E87.6 Active 09390629 Problem Morbid obesity E66.01 Active 46692 6002 Problem Anxiety F41.9 Active 15283792 Problem Diabetic polyneuropathy associated with type 2 d iabetes mellitus E11.42 Active 26610120 Problem Essential hypertension I10 Active 02037734 Problem Bilateral primary osteoarthritis of knee M17.0 Active 421797518 Problem Polyneuropathy associated with underlying disease G63 Active 441659489 Problem Anemia of chronic illness D63.8 Acti ve 322187287 Problem Lymphocytosis D72.820 Active 889672 09 Problem Retinal edema H35.81 Active 868469 6 Problem Chronic lymphocytic leukemia C91.10 A ctive 98682017 Problem Bipolar disorder, in partial remission, most rec ent episode depressed F31.75 Active 67494295 Problem Pure hypercholesterolemia E78.00 Acti ve 194543244 Problem Primary osteoarthritis of right knee M17.11 Active 516980871937162 Problem Bipolar disorder F31.9 Active 137 60977 Problem Bipolar I disorder, most recent episode (or curr ent) mixed, moderate F31.62 Active 89852595 Problem Chronic diastolic (congestive) heart failure I50.3 2 Active 105649672 Problem Reactive airway disease J45.909 Active 750371004939 Problem Insomnia, unspecified type G47.00 Act sharon 185806408 Problem Other chronic pain G89.29 Active 8 6463727 Problem Other iron deficiency anemia D50.8 A ctive 38865048 Problem Mild cognitive impairment G31.84 Acti ve 099387490 Problem Skin cancer C44.90 Active 89137549 7 ALLERGIES No Information ENCOUNTERS Encounter Location Date Diagnosis [place] [address] [address] [facility] [id number] [address] [place] [address] Apr, Chronic pain G89.29 and Bipo lar disorder F31.9 [place] [address] [address] [place] [id number] [address] [place] [address] Mar, Bipolar disorder F31.9 and C hronic pain G89.29 [facility] [address] [facility] [id number] [address] [place] [address] Feb, Bipolar disorder F31.9 [facility] [address] [facility] [id number] [address] [place] [address] Feb, Cellulitis of right upper ex tremity L03.113 and Skin abrasion T14.8XXA [facility] [address] [facility] [id number] [address] [place] [address] Feb, Bipolar disorder, in partial remission, most recent episode depressed F31.75 and Mild cognitive impairment G31.84 [facility] [address] [facility] [id number] [address] [place] [address] Feb, Chronic pain G89.29 [facility] [address] [facility] [id number] [address] [place] [address] Feb, Bipolar disorder, in partial remission, most recent episode depressed F31.75 and Mild cognitive impairment G31.84 [facility] [address] [id number] [address] [place] [address] January, Bipolar disorder, in partial remission, most recent episode depressed F31.75 and Mild cognitive impairment G31.84 [facility] [address] [id number] [address] [place] [address] January, Chronic pain G89.29 and Bipo lar disorder F31.9 [facility] [address] [id number] [address] [place] [address] January, Bipolar disorder, in partial remission, most recent episode depressed F31.75 and Mild cognitive impairment G31.84 [facility] [address] [id number] [address] [place] [address] Dec, [facility] [address] [id number] [address] [place] [address] Dec, Chronic pain G89.29 and Bipo lar disorder F31.9 [facility] [address] [id number] [address] [place] [address] Dec, Edema of both lower extremit ies R60.0 [facility] [address] [id number] [address] [place] [address] Dec, Bipolar disorder F31.9 [facility] [address] [id number] [address] [place] [address] Dec, Bipolar disorder, in partial remission, most recent episode depressed F31.75 and Mild cognitive impairment G31.84 [facility] [address] [id number] [address] [place] [address] Nov, [facility] [address] [id number] [address] [place] [address] Nov, Chronic pain G89.29 [facility] [address] [id number] [address] [place] [address] Nov, Bipolar disorder, in partial remission, most recent episode depressed F31.75 and Mild cognitive impairment G31.84 [place] [address] [address] [place] [id number] [address] [place] [address] Nov, Bipolar disorder F31.[address] [address] 04 Nov, 2018 Encounter for Medicare jordanaua [...] unspecified morphology N40.1 and Essential hypertension I10 [place] [id number] [place] [address] 21 Oct, 2018 Chronic pain G89.29 [place] [address] [place] [id number] [address] [place] [address] 18 Oct, 2018 Diabetes E11.9 [place] [address] [address] 11 Oct, 2018 Bipolar I disorder, most rec ent episode (or current) mixed, moderate F31.62 and Mild cognitive impairment G31.84 [place] [address] [address] [place] [id number] [address] [place] [address] Oct, Bipolar I disorder, most rec ent episode (or current) mixed, moderate F31.62 and Mild cognitive impairment G31.84 [place] [address] [address] [place] [id number] [address] [place] [address] Sep, Bipolar I disorder, most rec ent episode (or current) mixed, moderate F31.62 and Mild cognitive impairment G31.84 [place] [address] [place] [id number] [address] [place] [address] Sep, [place] [id number] [address] [place] [address] Sep, Diabetes E11.9 ; Hypoxia R09 .02 ; Hyperglycemia R73.9 ; Therapeutic drug monitoring Z51.81 ; BMI 50.0-59.9, adult Z68.43 and Skin cancer C44.90 [facility] [address] [facility] [id number] [address] [place] [address] Sep, Chronic pain G89.29 [facility] [address] [facility] [id number] [address] [place] [address] Sep, Bipolar I disorder, most rec ent episode (or current) mixed, moderate F31.62 [place] [address] [facility] [id number] [address] [place] [address] Sep, [place] [address] [place] [id number] [address] [place] [address] Sep, [place] [address] [place] [id number] [address] [place] [address] Aug, Chronic pain G89.29 [facility] [address] [facility] [id number] [address] [place] [address] Aug, Bipolar I disorder, most rec ent episode (or current) mixed, moderate F31.62 [place] [address] [address] [place] [id number] [address] [place] [address] Aug, Bipolar I disorder, most rec ent episode (or current) mixed, moderate F31.62 and Mild cognitive impairment G31.84 [place] [facility] [id number] [address] [place] [address] Jul, [facility] [address] [facility] [id number] [address] [place] [address] Jul, Chronic pain G89.29 [facility] [address] [facility] [id number] [address] [place] [address] Jul, Bipolar I disorder, most rec ent episode (or current) mixed, moderate F31.62 and Mild cognitive impairment G31.84 [place] [address] [facility] [id number] [address] [place] [address] Jul, Bipolar I disorder, most rec ent episode (or current) mixed, moderate F31.62 and MCI (mild cognitive impairment) G31.84 [facility] [address] [facility] [id number] [address] [place] [address] Jul, [facility] [address] [facility] [id number] [address] [place] [address] Jul, [facility] [address] [facility] [id number] [address] [place] [address] Jul, Bipolar I disorder, most rec ent episode (or current) mixed, moderate F31.62 [place] [address] [facility] [id number] [address] [place] [address] Jul, Chronic pain G89.29 [place] [address] [facility] [id number] [address] [place] [address] Jun, Bipolar I disorder, most rec ent episode (or current) mixed, moderate F31.62 [place] [address] [facility] [id number] [address] [place] [address] Jun, Pre-procedure lab exam Z01.8 12 [place] [address] [address] [place] [id number] [address] [place] [address] Jun, [facility] [address] [place] [id number] [place] [id number] Jun, [facility] [address] [place] [id number] [address] [place] [address] Jun, [place] [address] [facility] [id number] [address] [place] [address] Jun, Forgetfulness R68.89 ; Pre-s yncope R55 ; Localized edema R60.0 ; Other iron deficiency anemia D50.8 and BMI 50.0-59.9, adult Z68.43 [place] [address] [place] [id number] [address] [place] [address] Jun, Chronic pain G89.29 [facility] [address] [place] [id number] [address] [place] [address] 05 Jun, 2018 Chronic pain G89.29 [facility] [address] [facility] [id number] [address] [place] [address] Jun, Bipolar I disorder, most rec ent episode (or current) mixed, moderate F31.62 [place] [address] [place] [id number] [address] [place] [address] May, Chronic pain G89.29 [place] [address] [place] [id number] [address] [place] [address] Apr, [place] [address] [place] [id number] [place] [address] Apr, Chronic pain G89.29 [place] [address] [address] Apr, [facility] M17.11 [place] [address] [place] [id number] [address] [place] [address] Mar, [place] [address] [place] [id number] [place] [address] Mar, BMI 50.0-59.9, adult Z68.43 and Bipolar disorder, in partial remission, most recent episode depressed F31.75 [place] [address] [place] [id number] [place] [address] Mar, Diabetes E11.9 ; Pure hyperc holesterolemia E78.00 ; Essential hypertension I10 ; Nausea with vomiting, unspecified R11.2 and Headache, unspecified headache type R51 [place] [address] [place] [id number] [address] [place] [address] Mar, Bipolar I disorder, most rec ent episode (or current) mixed, moderate F31.62 [place] [address] [place] [id number] [address] [place] [address] Mar, Bipolar I disorder, most rec ent episode (or current) mixed, moderate F31.62 [facility] [address] [id number] [address] [place] [address] Mar, Chronic pain G89.29 [facility] [address] [id number] [address] [place] [address] Mar, Bipolar I disorder, most rec ent episode (or current) mixed, moderate F31.62 [facility] [address] [id number] [address] [place] [address] Feb, Bipolar I disorder, most rec ent episode (or current) mixed, moderate F31.62 [place] [address] [id number] [address] [place] [address] 14 Feb, 2018 Chronic pain G89.29 [facility] [address] [id number] [address] [place] [address] Feb, Decubitus ulcer of right josselin t, stage 3 L89.893 and BMI 50.0-59.9, adult Z68.43 [facility] [address] [id number] [address] [place] [address] Feb, Bipolar I disorder, most rec ent episode (or current) mixed, moderate F31.62 [facility] [address] [id number] [address] [place] [address] Feb, [facility] [address] [id number] [address] [place] [id number] January, [facility] [address] [id number] [address] [place] [address] January, Chronic pain G89.29 [facility] [address] [id number] [address] [place] [id number] January, Bipolar I disorder, most rec ent episode (or current) mixed, moderate F31.62 [facility] [address] [facility] [id number] [address] [place] [address] January, Bipolar I disorder, most rec ent episode (or current) mixed, moderate F31.62 [facility] [address] [facility] [id number] [address] [place] [address] Dec, Bipolar I disorder, most rec ent episode (or current) mixed, moderate F31.62 and BMI 50.0-59.9, adult Z68.43 [facility] [address] [facility] [id number] [address] [place] [address] Dec, Bipolar I disorder, most rec ent episode (or current) mixed, moderate F31.62 [place] [address] [facility] [id number] [address] [place] [address] Dec, Chronic pain G89.29 [place] [address] [place] [id number] [address] [place] [address] Dec, DM neuro manif type II E11.4 9 ; Right flank pain R10.9 ; 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 ; Encounter for medication monitoring Z51.81 and BMI 50.0-59.9, adult Z68.43 [place] [address] [place] [id number] [address] [place] [address] Dec, Bipolar I disorder, most rec ent episode (or current) mixed, moderate F31.62 [place] [address] [place] [id number] [address] [place] [address] Nov, Bipolar I disorder, most rec ent episode (or current) mixed, moderate F31.62 [place] [address] [place] [id number] [address] [place] [address] Nov, Chronic pain G89.29 [place] [address] [facility] [id number] [address] [place] [id number] Nov, Bipolar I disorder, most rec ent episode (or current) mixed, moderate F31.62 [place] [address] [facility] [id number] [address] [place] [address] Nov, Hypokalemia E87.6 [place] [address] [address] Nov, Bipolar I disorder, most rec ent episode (or current) mixed, moderate F31.62 [place] [address] [address] Oct, Chronic pain G89.29 [place] [address] [address] Oct, BMI 50.0-59.9, adult Z68.43 and Bipolar I disorder, most recent episode (or current) mixed, moderate F31.62 [place] [address] [address] Oct, Bipolar I disorder, most rec ent episode (or current) mixed, moderate F31.62 [place] [address] [address] Oct, [place] [address] [address] Oct, Hypokalemia E87.6 [place] [address] [address] Oct, DM neuro manif type II E11.4 9 [place] [address] [address] Oct, Bipolar I disorder, most rec ent episode (or current) mixed, moderate F31.62 [place] [address] [address] Oct, Bipolar I disorder, most rec ent episode (or current) mixed, moderate F31.62 [place] [address] [address] 14 Oct, 2017 Hyperkalemia E87.5 ; Falling R29.6 ; BMI 50.0-59.9, adult Z68.43 and Acute left ankle pain M25.572 [place] [address] [address] 08 Oct, 2017 DM neuro manif type II E11.4 9 [place] [address] [address] Oct, [place] [address] [address] Sep, Chronic pain G89.29 [place] [address] [address] Sep, [place] [address] [address] Sep, Bilateral primary osteoarthr itis of knee M17.0 [place] [address] [address] Sep, Generalized edema R60.[address] [address] 16 Sep, 2017 Bipolar I disorder, most rec ent episode (or current) mixed, moderate F31.[address] [address] 15 Sep, 2017 Hypoxia R09.02 ; Other hyper volemia E87.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 ; Anemia of chronic illness D63.8 and BMI 50.0- 59.9, adult Z68.43 [place] [address] [address] Sep, [address] [address] Sep, Bipolar I disorder, most rec ent episode (or current) mixed, moderate F31.62 [place] [address] [address] Aug, Chronic pain G89.29 [place] [address] [place] [id number] [address] [place] [address] Aug, Generalized edema R60.1 [facility] [address] [facility] [id number] [address] [place] [address] Aug, [facility] [address] [facility] [id number] [address] [place] [address] Aug, [facility] [address] [place] [id number] [address] [place] [address] Aug, Bipolar I disorder, most rec ent episode (or current) mixed, moderate F31.62 [facility] [address] [place] [id number] [address] [place] [address] Aug, Bipolar I disorder, most rec ent episode (or current) mixed, moderate F31.62 [place] [address] [place] [id number] [address] [place] [address] Aug, Chronic pain G89.29 [facility] [address] [place] [id number] [address] [place] [address] Jul, Bipolar I disorder, most rec ent episode (or current) mixed, moderate F31.62 [facility] [address] [place] [id number] [address] [place] [address] Jul, Bipolar I disorder, most rec ent episode (or current) mixed, moderate F31.62 and BMI 60.0-69.9, adult Z68.44 [facility] [address] [place] [id number] [address] [place] [address] Jul, Bipolar I disorder, most rec ent episode (or current) mixed, moderate F31.62 [facility] [address] [place] [id number] [address] [place] [address] Jul, Chronic pain G89.29 [facility] [address] [place] [id number] [address] [place] [address] 02 Jul, 2017 Bipolar I disorder, most rec ent episode (or current) mixed, moderate F31.62 [facility] [address] [place] [id number] [address] [place] [address] Jun, Polyneuropathy associated wi th underlying disease G63 and Diabetes E11.9 [facility] [address] [facility] [id number] [address] [place] [address] 16 Jun, 2017 Bipolar I disorder, most rec ent episode (or current) mixed, moderate F31.62 [facility] [address] [place] [id number] [address] [place] [address] 09 Jun, 2017 Chronic pain G89.29 [facility] [address] [place] [id number] [address] [place] [address] May, Bipolar I disorder, most rec ent episode (or current) mixed, moderate F31.62 [facility] [address] [place] [id number] [address] [place] [address] May, Bipolar I disorder, most rec ent episode (or current) mixed, moderate F31.62 [facility] [address] [place] [id number] [address] [place] [address] May, Diabetic polyneuropathy asso ciated with type 2 diabetes mellitus E11.42 [facility] [address] [place] [id number] [address] [place] [address] 18 May, 2017 Bipolar I disorder, most rec ent episode (or current) mixed, moderate F31.62 [facility] [address] [place] [id number] [address] [place] [address] May, Bipolar I disorder, most rec ent episode (or current) mixed, moderate F31.62 [facility] [address] [facility] [id number] [address] [place] [address] May, Chronic pain G89.29 [facility] [address] [place] [id number] [address] [place] [address] Apr, Bipolar I disorder, most rec ent episode (or current) mixed, moderate F31.62 [facility] [address] [place] [id number] [address] [place] [address] Apr, [facility] [address] [id number] [address] [place] [address] Apr, Chronic pain G89.29 and DM n euro manif type II E11.49 [facility] [address] [id number] [address] [place] [address] Apr, [facility] [address] [id number] [address] [place] [address] Apr, Bipolar I disorder, most rec ent episode (or current) mixed, moderate F31.62 [facility] [address] [id number] [address] [place] [id number] Apr, Chronic pain G89.29 [facility] [address] [id number] [address] [place] [address] Apr, Iliotibial band syndrome, le ft M76.32 [facility] [address] [id number] [address] [place] [address] Apr, Bipolar I disorder, most rec ent episode (or current) mixed, moderate F31.62 [facility] [address] [id number] [address] [place] [address] Mar, Bipolar I disorder, most rec ent episode (or current) mixed, moderate F31.62 [facility] [address] [id number] [address] [place] [address] Mar, Bipolar I disorder, most rec ent episode (or current) mixed, moderate F31.62 [facility] [address] [id number] [address] [place] [address] Mar, [facility] [address] [id number] [address] [place] [address] Mar, Bipolar I disorder, most rec ent episode (or current) mixed, moderate F31.62 [facility] [address] [id number] [address] [place] [id number] Mar, Chronic pain G89.29 [facility] [address] [id number] [address] [place] [id number] Mar, Bipolar I disorder, most rec ent episode (or current) mixed, moderate F31.62 [facility] [address] [facility] [id number] [address] [place] [address] Mar, Bipolar I disorder, most rec ent episode (or current) mixed, moderate F31.62 [facility] [address] [facility] [id number] [address] [place] [address] Mar, Acute pain of left knee M25. 562 ; Left hip pain M25.552 ; Generalized edema R60.1 and Tongue swelling R22.0 [facility] [address] [facility] [id number] [address] [place] [address] Mar, [facility] [address] [facility] [id number] [address] [place] [address] Feb, Chronic pain G89.29 [facility] [address] [place] [id number] [address] [place] [address] Feb, Diabetes E11.9 [facility] [address] [facility] [id number] [address] [place] [address] January, Chronic pain G89.29 [facility] [address] [facility] [id number] [address] [place] [address] January, [facility] [address] [facility] [id number] [address] [place] [id number] January, Bipolar I disorder, most rec ent episode (or current) mixed, moderate F31.62 [facility] [address] [facility] [id number] [address] [place] [address] Dec, Bipolar I disorder, most rec ent episode (or current) mixed, moderate F31.62 [facility] [address] [facility] [id number] [address] [place] [id number] Dec, Chronic pain G89.29 [facility] [address] [facility] [id number] [address] [place] [id number] Dec, Bipolar I disorder, most rec ent episode (or current) mixed, moderate F31.62 [facility] [address] [id number] [address] [place] [address] Dec, Diabetes E11.9 ; Essential h ypertension I10 ; Chronic pain G89.29 and Morbid obesity E66.01 [facility] [address] [id number] [address] [place] [address] Dec, [facility] [address] [id number] [address] [place] [address] Dec, Bipolar I disorder, most rec ent episode (or current) mixed, moderate F31.62 [facility] [address] [facility] [id number] [address] [place] [id number] Dec, Bipolar I disorder, most rec ent episode (or current) mixed, moderate F31.62 [facility] [address] [facility] [id number] [address] [place] [id number] Nov, Chronic pain G89.29 [facility] [address] [id number] [address] [place] [address] Nov, Bipolar I disorder, most rec ent episode (or current) mixed, moderate F31.62 [facility] [address] [facility] [id number] [address] [place] [address] Nov, [facility] [address] [facility] [id number] [address] [place] [address] Nov, Bipolar I disorder, most rec ent episode (or current) mixed, moderate F31.62 [facility] [address] [id number] [address] [place] [id number] Nov, Bipolar I disorder, most rec ent episode (or current) mixed, moderate F31.62 [facility] [address] [facility] [id number] [address] [place] [address] Nov, [facility] [address] [facility] [id number] [address] [place] [id number] Nov, [facility] [address] [facility] [id number] [address] [place] [address] Nov, [facility] [address] [facility] [id number] [address] [place] [address] Oct, Chronic pain G89.29 [facility] [address] [facility] [id number] [address] [place] [address] Oct, Bipolar I disorder, most rec ent episode (or current) mixed, moderate F31.62 [facility] [address] [facility] [id number] [address] [place] [address] Oct, [facility] [address] [facility] [id number] [address] [place] [address] Oct, Chronic pain G89.29 ; Diabet es E11.9 ; Anxiety F41.9 and 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 [facility] [address] [facility] [id number] [address] [place] [address] Oct, [facility] [address] [facility] [id number] [address] [place] [address] Oct, Diabetes E11.9 [facility] [address] [facility] [id number] [address] [place] [address] Oct, Bipolar I disorder, most rec ent episode (or current) mixed, moderate F31.62 [facility] [address] [facility] [id number] [address] [place] [address] Sep, Chronic pain G89.29 [facility] [address] [facility] [id number] [address] [place] [address] Sep, Chronic pain G89.29 [facility] [address] [facility] [id number] [address] [place] [address] Aug, Chronic pain G89.29 [facility] [address] [facility] [id number] [address] [place] [address] Jul, [facility] [address] [facility] [id number] [address] [place] [address] Jul, Diabetes E11.9 [facility] [address] [facility] [id number] [address] [place] [address] Jul, Chronic pain G89.29 [facility] [address] [facility] [id number] [address] [place] [address] Jul, Bipolar I disorder, most rec ent episode (or current) mixed, moderate F31.62 [place] [address] [facility] [id number] [address] [place] [id number] Jun, Bipolar I disorder, most rec ent episode (or current) mixed, moderate F31.62 [place] [address] [place] [id number] [address] [place] [address] Jun, [place] [address] [place] [id number] [address] [place] [id number] Jun, Bipolar I disorder, most rec ent episode (or current) mixed, moderate F31.62 [place] [address] [place] [id number] [address] [place] [address] May, Insomnia, unspecified type G 47.00 [place] [address] [facility] [id number] [address] [place] [address] May, Bipolar I disorder, most rec ent episode (or current) mixed, moderate F31.62 [place] [address] [place] [id number] [address] [place] [id number] 14 May, 2016 [place] [address] [facility] [id number] [address] [place] [id number] 08 May, 2016 Bipolar I disorder, most rec ent episode (or current) mixed, moderate F31.62 [place] [address] [facility] [id number] [address] [place] [address] 06 May, 2016 Diabetes E11.9 and Essential hypertension I10 [place] [address] [facility] [id number] [address] [place] [address] Apr, Chronic pain G89.29 [facility] [address] [facility] [id number] [address] [place] [address] Apr, Bipolar I disorder, most rec ent episode (or current) mixed, moderate F31.62 [place] [address] [facility] [id number] [address] [place] [address] Apr, [place] [address] [facility] [id number] [address] [place] [id number] Apr, [place] [address] [facility] [id number] [address] [place] [address] Mar, Chronic pain G89.29 ; Headac he, unspecified headache type R51 ; Neuropathy G62.9 ; Pain of right hip joint M25.551 and Essential hypertension I10 [place] [address] [place] [id number] [address] [place] [address] Mar, Chronic pain G89.29 [place] [address] [facility] [id number] [address] [place] [address] Mar, Bipolar I disorder, most rec ent episode (or current) mixed, moderate F31.62 [place] [address] [place] [id number] [address] [place] [address] Feb, Bipolar I disorder, most rec ent episode (or current) mixed, moderate F31.62 and Insomnia, unspecified type G47.00 [place] [address] [facility] [id number] [address] [place] [address] Feb, Chronic pain G89.29 [place] [address] [facility] [id number] [address] [place] [address] Feb, Bipolar I disorder, most rec ent episode (or current) mixed, moderate F31.62 [place] [address] [facility] [id number] [address] [place] [address] January, Bipolar I disorder, most rec ent episode (or current) mixed, moderate F31.62 [place] [address] [place] [id number] [address] [place] [address] January, Chronic pain G89.29 [facility] [address] [id number] [address] [place] [address] January, Chronic pain G89.29 and Esse ntial hypertension I10 [facility] [address] [facility] [id number] [address] [place] [address] January, Bipolar I disorder, most rec ent episode (or current) mixed, moderate F31.62 [facility] [address] [id number] [address] [place] [address] Dec, [facility] [address] [facility] [id number] [address] [place] [address] Dec, [facility] [address] [facility] [id number] [address] [place] [address] Dec, [facility] [address] [facility] [id number] [address] [place] [id number] Dec, [facility] [address] [facility] [id number] [address] [place] [address] Nov, Reactive airway disease J45. 909 [facility] [address] [facility] [id number] [address] [place] [address] Nov, [facility] [address] [facility] [id number] [address] [place] [address] Nov, [facility] [address] [facility] [id number] [address] [place] [address] 30 Nov, 2015 [facility] [address] [facility] [id number] [address] [place] [address] Nov, [facility] [address] [place] [id number] [address] [place] [address] Nov, Onychomycosis B35.1 ; Hammer toe M20.40 ; Hooks or callus L84 and DM neuro manif type II E11.49 [facility] [address] [facility] [id number] [address] [place] [address] Nov, Chronic pain G89.29 ; Leukoc ytosis D72.829 and Diabetes E11.9 [place] [address] [address] Nov, [place] [address] [address] Oct, Bronchitis J40 [place] [address] [address] Oct, [place] [address] [address] Oct, [place] [address] [address] Oct, Mastoiditis, unspecified lat erality H70.90 and Type 2 diabetes mellitus with complication E11.8 [place] [address] [address] Sep, [place] [address] [address] Sep, Dysuria R30.0 ; Cough R05 ; Benign prostatic hyperplasia with lower urinary tract symptoms, unspecified morphology N40.1 ; Hypokalemia E87.6 and Eustachian tube dysfunction, unspecified laterality H69.80 [place] [address] [address] Sep, Moderate mixed bipolar I dis order F31.62 [place] [address] [address] Sep, Hypokalemia E87.6 [place] [address] [address] Sep, [place] [address] [address] Sep, Upper respiratory tract infe ction, unspecified type J06.9 [place] [address] [place] [id number] [address] [place] [address] Aug, [facility] [address] [id number] [address] [place] [address] Aug, Dysuria R30.0 [facility] [address] [id number] [address] [place] [address] Aug, [facility] [address] [id number] [address] [place] [address] Jul, [facility] [address] [id number] [address] [place] [address] Jul, [facility] [address] [id number] [address] [place] [address] Jul, [facility] [address] [id number] [address] [place] [address] Jul, [facility] [address] [id number] [address] [place] [address] Jun, [facility] [address] [id number] [address] [place] [address] Jun, [facility] [address] [id number] [address] [place] [address] Jun, [facility] [address] [id number] [address] [place] [address] May, [facility] [address] [id number] [address] [place] [address] May, Bipolar I disorder, most rec ent episode (or current) mixed, moderate 296.62 [facility] [address] [id number] [address] [place] [id number] 16 May, 2015 [facility] [address] [id number] [address] [place] [phone] 02 May, 2015 Bipolar I disorder, most rec ent episode (or current) mixed, moderate 296.62 and Major depressive disorder, recurrent episode, severe, specified as with psychotic behavior 296.34 [facility] [address] [facility] [id number] [address] [place] [address] May, Bipolar I disorder, most rec ent episode (or current) mixed, moderate 296.62 [facility] [address] [facility] [id number] [address] [place] [address] May, [facility] [address] [facility] [id number] [address] [place] [address] Apr, [facility] [address] [facility] [id number] [address] [place] [address] Apr, [facility] [address] [facility] [id number] [address] [place] [address] Apr, Unspecified disorder of kidn ey and ureter 593.9 and Diabetes mellitus type 2, uncontrolled 250.02 [facility] [address] [place] [id number] [address] [place] [address] Apr, [facility] [address] [facility] [id number] [address] [place] [address] Apr, [facility] [address] [facility] [id number] [address] [place] [id number] Apr, [facility] [address] [facility] [id number] [address] [place] [address] Apr, [facility] [address] [facility] [id number] [address] [place] [address] Apr, Diabetes mellitus type II, u ncontrolled 250.02 [facility] [address] [facility] [id number] [address] [place] [address] Apr, [facility] [address] [facility] [id number] [address] [place] [address] Mar, [facility] [address] [facility] [id number] [address] [place] [id number] Mar, [facility] [address] [facility] [id number] [address] [place] [address] Mar, [facility] [address] [place] [id number] [address] [place] [address] Mar, Major depressive disorder, r ecurrent episode, severe, specified as with psychotic behavior 296.34 and Bipolar I disorder, most recent episode (or current) mixed, moderate 296.62 [facility] [address] [place] [id number] [address] [place] [address] Mar, Diabetes 250.00 ; Anuria 788 .5 ; Nausea and vomiting 787.01 and Diarrhea 787.91 [facility] [address] [place] [id number] [address] [place] [address] Mar, Diabetes 250.00 [facility] [address] [address] Mar, [facility] [address] [place] [id number] [address] [place] [address] Mar, Diabetes 250.00 [facility] [address] [place] [id number] [address] [place] [address] Mar, [facility] [address] [place] [id number] [address] [place] [address] Mar, [facility] [address] [place] [id number] [address] [place] [address] Mar, [facility] [address] [place] [id number] [address] [place] [address] Mar, [facility] [address] [place] [id number] [address] [place] [address] Mar, Bipolar I disorder, most rec ent episode (or current) mixed, moderate 296.62 and Major depressive disorder, recurrent episode, severe, specified as with psychotic behavior 296.34 [facility] [address] [place] [id number] [address] [place] [address] Mar, Magnesium deficiency 275.2 ; Hypokalemia 276.8 ; Nausea & vomiting 787.01 and Diabetes mellitus type 2, uncontrolled 250.02 [facility] [address] [place] [id number] [address] [place] [address] Feb, [facility] [address] [address] Feb, Bipolar I disorder, most rec ent episode (or current) mixed, moderate 296.62 [facility] [address] [address] Feb, Nausea and vomiting 787.01 ; Left elbow pain 719.42 ; Anuria 788.5 and Diabetes 250.00 [facility] [address] [address] Feb, [facility] [address] [address] Feb, Hypopotassemia 276.8 and Hyp okalemia 276.8 [place] [address] [address] Feb, Hypopotassemia 276.8 and Hyp okalemia 276.8 [place] [address] [address] Feb, Seborrheic keratoses 702.19 [facility] [address] [place] [id number] [address] [place] [address] Feb, Hypopotassemia 276.8 and Low magnesium levels 275.2 [facility] [address] [place] [id number] [address] [place] [address] January, [facility] [address] [place] [id number] [address] [place] [address] January, [facility] [address] [address] January, [facility] [address] [place] [id number] [address] [place] [address] January, Scalp lesion 709.9 [facility] [address] [address] January, [facility] [address] [id number] [address] [place] [address] Dec, Tear of medial cartilage or meniscus of knee, current 836.0 and 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 [facility] [address] [id number] [address] [place] [address] Dec, [facility] [address] [id number] [address] [place] [address] Dec, [facility] [address] [id number] [address] [place] [address] Dec, Squamous cell carcinoma, 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 [facility] [address] [id number] [address] [place] [address] 14 Dec, 2014 [facility] [address] [id number] [address] [place] [address] Dec, [facility] [address] [id number] [address] [place] [address] Nov, [facility] [address] [id number] [address] [place] [address] Nov, [facility] [address] [id number] [address] [place] [address] Nov, [facility] [address] [id number] [address] [place] [id number] Nov, [facility] [address] [id number] [address] [place] [address] Nov, [facility] [address] [id number] [address] [place] [address] Nov, [facility] [address] [id number] [address] [place] [id number] Nov, [facility] [address] [id number] [address] [place] [address] Nov, [facility] [address] [id number] [address] [place] [address], [place] [address] Nov, [facility] [address] [id number] [address] [place] [address], [place] [address] Nov, [facility] [address] [id number] [address] [place] [address], [place] [address] Nov, [facility] [address] [id number] [address] [place] [address], [place] [id number] Nov, [facility] [address] [id number] [address] [place] [address], [place] [address] Oct, 2014 [facility] [address] [id number] [address] [place] [address], [place] [address] Oct, 2014 [facility] [address] [id number] [address] [place] [address], [place] [address] Oct, 2014 [facility] [address] [id number] [address] [place] [address], [place] [address] Oct, 2014 [facility] [address] [id number] [address] [place] [address], [place] [address] Oct, 2014 [facility] [address] [id number] [address] [place] [address], [place] [address] Oct, 2014 [facility] [address] [id number] [address] [place] [address], [place] [address] Oct, 2014 [facility] [address] [id number] [address] [place] [id number] Oct, 2014 [facility] [address] [id number] [address] [place] [address], [place] [address] Oct, [facility] [address] [id number] [address] [place] [address], [place] [address] Sep, [facility] [address] [id number] [address] [place] [id number] Sep, [facility] [address] [id number] [address] [place] [id number] Sep, [facility] [address] [id number] [address] [place] [address], [place] [address] Sep, [facility] [address] [id number] [address] [place] [address], [place] [address] Sep, [facility] [address] [id number] [address] [place] [address], [place] [address] Sep, [facility] [address] [id number] [address] [place] [address], [place] [address] Sep, [facility] [address] [id number] [address] [place] [address], [place] [address] Sep, [facility] [address] [id number] [address] [place] [address], [place] [id number] Sep, [facility] [address] [id number] [address] [place] [address], [place] [address] Sep, [facility] [address] [id number] [address] [place] [address], [place] [address] Sep, [facility] [address] [id number] [address] [place] [address], [place] [address] Sep, [facility] [address] [id number] [address] [place] [address], [place] [address] Sep, [facility] [address] [id number] [address] [place] [address], [place] [address] Sep, [facility] [address] [id number] [address] [place] [address], [place] [address] Sep, [facility] [address] [id number] [address] [place] [address], [place] [address] Sep, [facility] [address] [id number] [address] [place] [address], [place] [address] Aug, [facility] [address] [id number] [address] [place] [address], [place] [address] Aug, [facility] [address] [id number] [facility] [place] [address] Aug, [facility] [address] [id number] [facility] [place] [address] Aug, [facility] [address] [id number] [facility] [place] [address] Aug, [facility] [address] [id number] [facility] [place] [address] Aug, [facility] [address] [id number] [facility] [place] [address] Aug, [facility] [address] [id number] [address] [place] [address], [place] [address] Aug, [facility] [address] [id number] [address] [place] [address], [place] [address] Aug, [facility] [address] [id number] [address] [place] [address], [place] [address] Aug, [facility] [address] [id number] [address] [place] [address], [place] [address] Aug, [facility] [place] [facility] [address] [place] [id number] Aug, [facility] [address] [id number] [address] [place] [address], [place] [address] Aug, [facility] [address] [id number] [address] [place] [address], [place] [address] Aug, [facility] [address] [id number] [address] [place] [address], [place] [address] Aug, [facility] [address] [id number] [address] [place] [address], [place] [address] Aug, [facility] [address] [id number] [facility] [place] [address] Aug, [facility] [address] [id number] [address] [place] [address], [place] [address] Aug, [facility] [address] [id number] [address] [place] [address], [place] [address] Aug, [facility] [address] [id number] [address] [place] [address], [place] [address] Aug, [facility] [address] [id number] [address] [place] [address], [place] [address] Aug, [facility] [address] [id number] [address] [place] [address], [place] [address] Aug, [facility] [address] [id number] [address] [place] [address], [place] [address] Aug, [facility] [address] [id number] [address] [place] [address], [place] [address] Aug, [facility] [address] [id number] [address] [place] [address], [place] [address] Aug, [facility] [address] [id number] [address] [place] [address], [place] [address] Aug, [facility] [address] [id number] [address] [place] [address], [place] [address] Aug, [facility] [address] [id number] [address] [place] [address], [place] [address] Aug, [facility] [address] [id number] [address] [place] [address], [place] [address] Aug, [facility] [address] [id number] [address] [place] [address], [place] [address] Aug, [facility] [address] [id number] [address] [place] [address], [place] [address] Jul, [facility] [address] [id number] [address] [place] [address], [place] [address] Jul, [facility] [address] [id number] [address] [place] [address], [place] [address] Jul, [facility] [address] [id number] [address] [place] [address], [place] [address] Jul, [facility] [address] [id number] [address] [place] [address], [place] [address] Jul, [facility] [address] [id number] [address] [place] [address], [place] [address] Jul, [facility] [address] [id number] [address] [place] [address], [place] [address] Jul, [facility] [address] [id number] [address] [place] [address], [place] [address] Jul, [facility] [address] [id number] [address] [place] [address], [place] [address] Jul, [facility] [address] [id number] [address] [place] [address], [place] [address] Jul, [facility] [address] [id number] [address] [place] [address], [place] [address] Jun, [facility] [address] [id number] [address] [place] [address], [place] [address] Jun, [facility] [address] [id number] [address] [place] [address], [place] [address] Jun, [facility] [address] [id number] [address] [place] [address], [place] [address] Jun, [facility] [address] [id number] [address] [place] [address] Jun, [facility] [address] [id number] [address] [place] [address] Jun, [facility] [address] [id number] [address] [place] [address], [place] [address] Jun, [facility] [address] [id number] [address] [place] [address], [place] [address] Jun, [facility] [address] [id number] [address] [place] [address], [place] [address] Jun, [facility] [address] [id number] [address] [place] [address], [place] [address] Jun, 2013 [facility] [address] [id number] [address] [place] [address], [place] [address] 29 Sep, 2013 [facility] [address] [id number] [address] [place] [address], [place] [address] 29 Sep, 2013 [facility] [address] [id number] [address] [place] [address], [place] [address] 26 Sep, 2013 [facility] [address] [id number] [address] [place] [address], [place] [address] 26 Sep, 2013 [facility] [address] [id number] [address] [place] [address], [place] [address] 17 Sep, 2013 [facility] [address] [id number] [address] [place] [address], [place] [address] 17 Sep, 2013 [facility] [address] [id number] [address] [place] [address], [place] [address] 15 May, 2013 [facility] [address] [id number] [address] [place] [address], [place] [address] 15 Sep, 2013 [facility] [address] [id number] [address] [place] [address], [place] [address] 15 May, 2013 [facility] [address] [id number] [address] [place] [address], [place] [address] 15 Sep, 2013 [facility] [address] [id number] [address] [place] [address], [place] [address] 10 Sep, 2013 [facility] [address] [id number] [address] [place] [address], [place] [address] 10 Sep, 2013 [facility] [address] [id number] [address] [place] [address], [place] [address] 09 Sep, 2013 [facility] [address] [id number] [address] [place] [address], [place] [address] 09 Sep, 2013 [facility] [address] [id number] [address] [place] [address], [place] [address] May, [facility] [address] [id number] [address] [place] [address], [place] [address] May, [facility] [address] [id number] [address] [place] [address], [place] [address] Apr, [facility] [address] [id number] [address] [place] [address], [place] [address] Apr, [facility] [address] [id number] [address] [place] [address], [place] [address] Apr, [facility] [address] [id number] [address] [place] [address], [place] [address] Apr, [facility] [address] [id number] [address] [place] [address], [place] [address] Apr, [facility] [address] [id number] [address] [place] [address], [place] [address] Apr, [facility] [address] [id number] [address] [place] [address], [place] [address] Apr, [facility] [address] [id number] [address] [place] [address], [place] [address] Apr, [facility] [address] [id number] [address] [place] [address], [place] [address] Apr, [facility] [address] [id number] [address] [place] [address], [place] [address] Apr, [facility] [address] [id number] [address] [place] [address], [place] [address] Apr, [facility] [address] [id number] [address] [place] [address], [place] [address] Apr, [facility] [address] [id number] [address] [place] [address], [place] [address] Apr, [facility] [address] [id number] [address] [place] [address], [place] [address] Apr, [facility] [address] [id number] [address] [place] [address], [place] [address] Apr, [facility] [address] [id number] [facility] [place] [address] Mar, 2013 [facility] [address] [id number] [address] [place] [address], [place] [address] Mar, [facility] [address] [id number] [address] [place] [address], [place] [address] Mar, [facility] [address] [id number] [address] [place] [address], [place] [address] Mar, [facility] [address] [id number] [address] [place] [address], [place] [address] Mar, [facility] [address] [id number] [address] [place] [address], [place] [address] Mar, [facility] [address] [id number] [address] [place] [address], [place] [address] Mar, [facility] [address] [id number] [address] [place] [address], [place] [address] Mar, [facility] [address] [id number] [address] [place] [address], [place] [address] Mar, [facility] [address] [id number] [address] [place] [address], [place] [address] Mar, [facility] [address] [id number] [address] [place] [address], [place] [address] Mar, 2013 [facility] [address] [id number] [address] [place] [address], [place] [address] Mar, 2013 [facility] [address] [id number] [address] [place] [address], [place] [address] Mar, 2013 [facility] [address] [id number] [address] [place] [address], [place] [address] Mar, 2013 [facility] [address] [id number] [address] [place] [address], [place] [address] Mar, 2013 [facility] [address] [id number] [facility] [place] [address] Mar, [facility] [address] [id number] [facility] [place] [address] Mar, [facility] [address] [id number] [facility] [place] [address] Mar, [facility] [address] [id number] [facility] [place] [address] Feb, [facility] [address] [id number] [facility] [place] [address] Feb, [facility] [address] [id number] [address] [place] [address], [place] [address] Feb, [facility] [address] [id number] [address] [place] [address], [place] [address] Feb, [facility] [address] [id number] [address] [place] [address], [place] [address] Feb, [facility] [address] [id number] [address] [place] [address], [place] [address] Feb, [facility] [address] [id number] [address] [place] [address], [place] [address] Feb, [facility] [address] [id number] [address] [place] [address], [place] [address] Feb, [facility] [address] [id number] [address] [place] [address], [place] [address] Feb, [facility] [address] [id number] [address] [place] [address], [place] [address] Feb, [facility] [address] [id number] [address] [place] [address], [place] [address] Feb, [facility] [address] [id number] [address] [place] [address], [place] [address] Feb, [facility] [address] [id number] [address] [place] [address], [place] [address] Feb, [facility] [address] [id number] [facility] [place] [address] Feb, [facility] [address] [id number] [facility] [place] [address] January, [facility] [address] [id number] [facility] [place] [address] January, [facility] [address] [id number] [address] [place] [address], [place] [address] January, [facility] [address] [id number] [facility] [place] [address] January, [facility] [address] [id number] [address] [place] [address], [place] [address] January, [facility] [address] [id number] [address] [place] [address], [place] [address] January, [facility] [address] [id number] [address] [place] [address], [place] [address] January, [facility] [address] [id number] [address] [place] [address], [place] [address] January, [facility] [address] [id number] [address] [place] [address], [place] [address] January, [facility] [address] [id number] [address] [place] [address], [place] [address] January, [facility] [address] [id number] [address] [place] [address], [place] [address] January, [facility] [address] [id number] [address] [place] [address], [place] [address] January, [facility] [address] [id number] [address] [place] [address], [place] [address] January, [facility] [address] [id number] [address] [place] [address], [place] [address] January, [facility] [address] [id number] [facility] [place] [address] Dec, [facility] [address] [id number] [address] [place] [address], [place] [address] Dec, [facility] [address] [id number] [address] [place] [address], [place] [address] Dec, [facility] [address] [id number] [address] [place] [address], [place] [address] Dec, [facility] [address] [id number] [address] [place] [address], [place] [address] Dec, [facility] [address] [id number] [address] [place] [address], [place] [address] Dec, [facility] [address] [id number] [address] [place] [address], [place] [address] Dec, [facility] [address] [id number] [address] [place] [address], [place] [address] Dec, [facility] [address] [id number] [address] [place] [address], [place] [address] Dec, [facility] [address] [id number] [address] [place] [address], [place] [address] Dec, [facility] [address] [id number] [address] [place] [address], [place] [address] Nov, [facility] [address] [id number] [address] [place] [address], [place] [address] Nov, [facility] [address] [id number] [address] [place] [address], [place] [address] Nov, [facility] [address] [id number] [address] [place] [address], [place] [address] Nov, [facility] [address] [id number] [address] [place] [address], [place] [address] Nov, [facility] [address] [id number] [address] [place] [address], [place] [address] Nov, [facility] [address] [id number] [address] [place] [address], [place] [address] Nov, [facility] [address] [id number] [address] [place] [address], [place] [address] Nov, [facility] [address] [id number] [address] [place] [address], [place] [address] Nov, [facility] [address] [id number] [address] [place] [address], [place] [address] Nov, [facility] [address] [id number] [address] [place] [address], [place] [address] Oct, [facility] [address] [id number] [address] [place] [address], [place] [address] Oct, [facility] [address] [id number] [address] [place] [address], [place] [address] Oct, [facility] [address] [id number] [address] [place] [address], [place] [address] Oct, [facility] [address] [id number] [address] [place] [address], [place] [address] Oct, [facility] [address] [id number] [address] [place] [address], [place] [address] Oct, [facility] [address] [id number] [address] [place] [address], [place] [address] Oct, [facility] [address] [id number] [address] [place] [address], [place] [address] Oct, [facility] [address] [id number] [address] [place] [address], [place] [address] Oct, [facility] [address] [id number] [address] [place] [address], [place] [address] Oct, [facility] [address] [id number] [address] [place] [address], [place] [id number] Oct, [facility] [address] [id number] [address] [place] [address], [place] [address] Oct, [facility] [address] [id number] [address] [place] [address], [place] [address] Oct, [facility] [address] [id number] [address] [place] [address], [place] [address] Oct, [facility] [address] [id number] [address] [place] [address], [place] [address] Sep, [facility] [address] [id number] [address] [place] [address], [place] [address] Sep, [facility] [address] [id number] [address] [place] [address], [place] [address] Sep, [facility] [address] [id number] [address] [place] [address], [place] [address] Sep, [facility] [address] [id number] [address] [place] [address], [place] [address] Sep, [facility] [address] [id number] [address] [place] [address], [place] [address] Sep, [facility] [address] [id number] [address] [place] [address], [place] [address] Sep, [facility] [address] [id number] [address] [place] [address], [place] [address] Sep, [facility] [address] [id number] [address] [place] [address], [place] [address] Sep, [facility] [address] [id number] [address] [place] [address], [place] [address] Sep, [facility] [address] [id number] [address] [place] [address], [place] [address] Aug, [facility] [address] [id number] [address] [place] [address], [place] [address] Aug, [facility] [address] [id number] [address] [place] [address], [place] [address] Jul, [facility] [address] [id number] [address] [place] [address], [place] [address] Jul, [facility] [address] [id number] [address] [place] [address], [place] [address] Jul, [facility] [address] [id number] [address] [place] [address], [place] [address] Jul, [facility] [address] [id number] [address] [place] [address], [place] [id number] Jul, [facility] [address] [id number] [address] [place] [address], [place] [address] Jul, [facility] [address] [id number] [address] [place] [address], [place] [address] Jul, [facility] [address] [id number] [address] [place] [address], [place] [address] Jul, [facility] [address] [id number] [address] [place] [address], [place] [address] Jul, [facility] [address] [id number] [address] [place] [address], [place] [address] Jul, [facility] [address] [id number] [address] [place] [id number] Jul, [facility] [address] [id number] [address] [place] [address], [place] [address] Jul, [facility] [address] [id number] [address] [place] [id number] Jul, [facility] [address] [id number] [address] [place] [address], [place] [address] Jul, [facility] [address] [id number] [address] [place] [id number] Jul, [facility] [address] [id number] [address] [place] [address], [place] [address] Jul, [facility] [address] [id number] [address] [place] [address], [place] [address] Jul, [facility] [address] [id number] [address] [place] [address], [place] [address] Jul, 2012 [facility] [address] [id number] [address] [place] [address], [place] [address] Jul, 2012 [facility] [address] [id number] [address] [place] [address], [place] [address] Jun, 2012 [facility] [address] [id number] [address] [place] [address], [place] [address] Jun, 2012 [facility] [address] [id number] [address] [place] [address], [place] [address] Jun, 2012 [facility] [address] [id number] [address] [place] [address], [place] [address] Jun, 2012 [facility] [address] [id number] [address] [place] [address], [place] [address] Jun, 2012 [facility] [address] [id number] [address] [place] [address], [place] [address] Jun, 2012 [facility] [address] [id number] [address] [place] [address], [place] [address] Jun, 2012 [facility] [address] [id number] [address] [place] [address], [place] [address] Jun, [facility] [address] [id number] [address] [place] [address], [place] [address] Jun, 2012 [facility] [address] [id number] [address] [place] [id number] Jun, 2012 [facility] [address] [address] [id number] [address] [place] [address], [place] [address] Jun, [facility] [address] [id number] [address] [place] [address], [place] [address] May, [facility] [address] [id number] [address] [place] [address], [place] [address] 25 May, 2013 [facility] [address] [id number] [address] [place] [address], [place] [address] 19 May, 2012 [facility] [address] [id number] [address] [place] [address], [place] [address] 17 May, 2012 [facility] [address] [id number] [address] [place] [address], [place] [address] 11 May, 2012 [facility] [address] [id number] [address] [place] [address], [place] [address] 10 May, 2012 [facility] [address] [id number] [address] [place] [address], [place] [address] 09 May, 2013 [facility] [address] [id number] [address] [place] [address], [place] [address] 05 May, 2013 [facility] [address] [id number] [address] [place] [address], [place] [address] Apr, [facility] [address] [id number] [address] [place] [address], [place] [address] Apr, [facility] [address] [id number] [address] [place] [address], [place] [address] Apr, [facility] [address] [id number] [address] [place] [address], [place] [address] Apr, [facility] [address] [id number] [address] [place] [address], [place] [address] Apr, [facility] [address] [id number] [address] [place] [address], [place] [address] Mar, [facility] [address] [id number] [address] [place] [address], [place] [address] Mar, [facility] [address] [id number] [address] [place] [address], [place] [address] Mar, [facility] [address] [id number] [address] [place] [address], [place] [address] Mar, [facility] [address] [id number] [address] [place] [address], [place] [address] Mar, [facility] [address] [id number] [address] [place] [address], [place] [address] Mar, [facility] [address] [id number] [address] [place] [address], [place] [address] Mar, [facility] [address] [id number] [address] [place] [address], [place] [address] Mar, [facility] [address] [id number] [address] [place] [address], [place] [address] Feb, [facility] [address] [id number] [address] [place] [address], [place] [address] Feb, [facility] [address] [id number] [address] [place] [address], [place] [address] January, [facility] [address] [id number] [address] [place] [address], [place] [address] January, [facility] [address] [id number] [address] [place] [address], [place] [address] Dec, [facility] [address] [id number] [address] [place] [address], [place] [address] Dec, [facility] [address] [id number] [address] [place] [address], [place] [address] Nov, [facility] [address] [id number] [address] [place] [address], [place] [address] Nov, [facility] [address] [id number] [address] [place] [address], [place] [address] Nov, [facility] [address] [id number] [address] [place] [address], [place] [address] Nov, [facility] [address] [id number] [address] [place] [address], [place] [address] Oct, [facility] [address] [id number] [address] [place] [address], [place] [address] Oct, [facility] [address] [id number] [address] [place] [address], [place] [address] 26 Oct, 2012 [facility] [address] [id number] [address] [place] [address], [place] [address] 26 Oct, 2012 [facility] [address] [id number] [address] [place] [address], [place] [address] 16 Oct, 2012 [facility] [address] [id number] [address] [place] [address], [place] [address] 14 Oct, 2012 [facility] [address] [id number] [address] [place] [address], [place] [address] 08 Oct, 2012 [facility] [address] [id number] [address] [place] [address], [place] [address] 07 Oct, 2012 [facility] [address] [id number] [address] [place] [address], [place] [address] 03 Oct, 2012 [facility] [address] [id number] [address] [place] [address], [place] [address] 30 Sep, 2012 [facility] [address] [id number] [address] [place] [address], [place] [address] Sep, [facility] [address] [id number] [address] [place] [address], [place] [address] Sep, [facility] [address] [id number] [address] [place] [address], [place] [address] Sep, [facility] [address] [id number] [address] [place] [address], [place] [address] Sep, [facility] [address] [id number] [address] [place] [address], [place] [address] Sep, [facility] [address] [id number] [address] [place] [address], [place] [address] 09 Sep, 2012 [facility] [address] [id number] [address] [place] [address], [place] [address] 08 Sep, 2012 [facility] [address] [id number] [address] [place] [address], [place] [address] Aug, [facility] [address] [id number] [address] [place] [address], [place] [address] Aug, [facility] [address] [id number] [address] [place] [address], [place] [address] Aug, [facility] [address] [id number] [address] [place] [address], [place] [address] Aug, [facility] [address] [id number] [address] [place] [address], [place] [address] Aug, [facility] [address] [id number] [address] [place] [address], [place] [address] Aug, [facility] [address] [id number] [address] [place] [address], [place] [address] Aug, [facility] [address] [id number] [address] [place] [address], [place] [address] Aug, [facility] [address] [id number] [address] [place] [address], [place] [address] Jul, [facility] [address] [id number] [address] [place] [address], [place] [address] Jul, [facility] [address] [id number] [address] [place] [address], [place] [address] Jul, [facility] [address] [id number] [address] [place] [address], [place] [address] Jul, [facility] [address] [id number] [address] [place] [address] Jul, [facility] [address] [id number] [address] [place] [address], [place] [address] Jul, [facility] [address] [id number] [address] [place] [address], [place] [address] Jun, [facility] [address] [id number] [address] [place] [address], [place] [address] Jun, [facility] [address] [id number] [address] [place] [address], [place] [address] 23 Jun, 2012 [facility] [address] [id number] [address] [place] [address], [place] [address] 23 Jun, 2012 [facility] [address] [id number] [address] [place] [address], [place] [address] 22 Jun, 2012 [facility] [address] [id number] [address] [place] [address], [place] [address] 19 Jun, 2012 [facility] [address] [id number] [address] [place] [address], [place] [address] 19 Jun, 2012 [facility] [address] [id number] [address] [place] [address], [place] [address] 10 Jun, 2012 [facility] [address] [id number] [address] [place] [address], [place] [address] 10 Jun, 2012 [facility] [address] [id number] [address] [place] [address], [place] [address] 26 May, 2012 [facility] [address] [id number] [address] [place] [address], [place] [address] 24 May, 2012 [facility] [address] [id number] [address] [place] [address], [place] [address] 18 May, 2012 [facility] [address] [id number] [address] [place] [address], [place] [address] 30 Apr, 2012 [facility] [address] [id number] [address] [place] [address], [place] [address] 29 Apr, 2012 [facility] [address] [id number] [address] [place] [address], [place] [address] 18 Apr, 2012 [facility] [address] [id number] [address] [place] [address], [place] [address] 14 Apr, 2012 [facility] [address] [id number] [address] [place] [address], [place] [address] 10 Apr, 2012 [facility] [address] [id number] [address] [place] [address], [place] [address] Apr, [facility] [address] [id number] [address] [place] [address], [place] [address] Mar, [facility] [address] [id number] [address] [place] [address], [place] [address] Mar, [facility] [address] [id number] [address] [place] [address], [place] [address] Mar, [facility] [address] [id number] [address] [place] [address], [place] [address] Mar, [facility] [address] [id number] [address] [place] [address], [place] [address] Feb, [facility] [address] [id number] [address] [place] [address], [place] [address] Feb, [facility] [address] [id number] [address] [place] [address], [place] [address] Feb, [facility] [address] [id number] [address] [place] [address], [place] [address] Feb, [facility] [address] [id number] [address] [place] [address], [place] [address] Feb, [facility] [address] [id number] [address] [place] [address], [place] [address] January, [facility] [address] [id number] [address] [place] [address], [place] [address] January, [facility] [address] [id number] [address] [place] [address], [place] [address] January, [facility] [address] [id number] [address] [place] [address], [place] [address] January, [facility] [address] [id number] [address] [place] [address], [place] [address] January, [facility] [address] [id number] [address] [place] [address], [place] [address] January, [facility] [address] [id number] [address] [place] [address], [place] [address] 24 Dec, 2011 [facility] [address] [id number] [address] [place] [address], [place] [address] 24 Dec, 2011 [facility] [address] [id number] [address] [place] [address], [place] [address] 17 Dec, 2011 [facility] [address] [id number] [address] [place] [address], [place] [address] 09 Dec, 2011 [facility] [address] [id number] [address] [place] [address], [place] [address] 06 Dec, 2011 [facility] [address] [id number] [address] [place] [address], [place] [address] 27 Nov, 2011 [facility] [address] [id number] [address] [place] [address], [place] [address] 14 Nov, 2011 [facility] [address] [id number] [address] [place] [address], [place] [address] 12 Nov, 2011 [facility] [address] [id number] [address] [place] [address], [place] [address] 07 Nov, 2011 [facility] [address] [id number] [address] [place] [address], [place] [address] 29 Oct, 2011 [facility] [address] [id number] [address] [place] [address], [place] [address] 28 Oct, 2011 [facility] [address] [id number] [address] [place] [address], [place] [address] 24 Oct, 2011 [facility] [address] [id number] [address] [place] [address], [place] [address] 13 Oct, 2011 [facility] [address] [id number] [address] [place] [address], [place] [address] 08 Oct, 2011 [facility] [address] [id number] [address] [place] [address], [place] [address] 31 Sep, 2011 [facility] [address] [id number] [address] [place] [address], [place] [address] Sep, [facility] [address] [id number] [address] [place] [address], [place] [address] Sep, [facility] [address] [id number] [address] [place] [address], [place] [address] Sep, [facility] [address] [id number] [address] [place] [address], [place] [address] Sep, [facility] [address] [id number] [address] [place] [address], [place] [address] Sep, [facility] [address] [id number] [address] [place] [address], [place] [address] Aug, [facility] [address] [id number] [address] [place] [address], [place] [address] Aug, [facility] [address] [id number] [address] [place] [address], [place] [address] Aug, [facility] [address] [id number] [address] [place] [address], [place] [address] Jul, [facility] [address] [id number] [address] [place] [address], [place] [address] Jul, [facility] [address] [id number] [address] [place] [address], [place] [address] Jul, [facility] [address] [id number] [address] [place] [address], [place] [address] Jul, [facility] [address] [id number] [address] [place] [address], [place] [address] Jun, [facility] [address] [id number] [address] [place] [address], [place] [address] Jun, [facility] [address] [id number] [address] [place] [address], [place] [address] Jun, [facility] [address] [id number] [address] [place] [address], [place] [address] Jun, [facility] [address] [id number] [address] [place] [address], [place] [address] 10 Jun, 2011 [facility] [address] [id number] [address] [place] [address], [place] [address] 10 Jun, 2011 [facility] [address] [id number] [address] [place] [address], [place] [address] 11 Mar, 2011 [facility] [address] [id number] [address] [place] [address], [place] [address] 18 Dec, 2010 [facility] [address] [id number] [address] [place] [address], [place] [address] 11 Dec, 2010 [facility] [address] [id number] [address] [place] [address], [place] [address] 18 Nov, 2010 [facility] [address] [id number] [address] [place] [address], [place] [address] 16 Nov, 2010 [facility] [address] [id number] [address] [place] [address], [place] [address] 10 Sep, 2010 [facility] [address] [id number] [address] [place] [address], [place] [address] 31 Aug, 2010 [facility] [address] [id number] [address] [place] [address], [place] [address] 29 Aug, 2010 [facility] [address] [id number] [address] [place] [address], [place] [address] 29 Aug, 2010 [facility] [address] [id number] [address] [place] [address], [place] [address] 29 Aug, 2010 [facility] [address] [id number] [address] [place] [address], [place] [address] 27 Aug, 2010 [facility] [address] [id number] [address] [place] [address], [place] [address] 14 Aug, 2010 [facility] [address] [id number] [address] [place] [address], [place] [address] 08 Aug, 2010 [facility] [address] [id number] [address] [place] [address], [place] [address] 08 Aug, 2010 [facility] [address] [id number] [address] [place] [address], [place] [address] Aug, [facility] [address] [id number] [address] [place] [address], [place] [address] Aug, [facility] [address] [id number] [address] [place] [address], [place] [address] Aug, [facility] [address] [id number] [address] [place] [address], [place] [address] Aug, [facility] [address] [id number] [address] [place] [address], [place] [address] Jul, [facility] [address] [id number] [address] [place] [address], [place] [address] Jul, [facility] [address] [id number] [address] [place] [address], [place] [address] Jul, [facility] [address] [id number] [address] [place] [address], [place] [address] Jul, [facility] [address] [id number] [address] [place] [address], [place] [address] Jul, [facility] [address] [id number] [address] [place] [address], [place] [address] Jul, [facility] [address] [id number] [address] [place] [address], [place] [address] 24 Jun, 2010 [facility] [address] [id number] [address] [place] [address], [place] [address] Jun, [facility] [address] [id number] [address] [place] [address], [place] [id number] Jun, [facility] [address] [id number] [address] [place] [address], [place] [phone] Jun, [facility] [address] [id number] [address] [place] [address], [place] [phone] 16 Apr, 2010 [facility] [address] [id number] [address] [place] [address], [place] [address] Mar, [facility] [address] [id number] [address] [place] [phone] Feb, [facility] [address] [id number] [address] [place] [phone] January, [facility] [address] [id number] [address] [place] [id number] 15 Dec, 2009 [facility] [address] [id number] [address] [place] [phone] Nov, [facility] [address] [id number] [address] [place] [address], [place] [id number] Aug, [facility] [address] [id number] [address] [place] [phone] Aug, [facility] [address] [id number] [address] [place] [address], [place] [address] Aug, [facility] [address] [id number] [address] [place] [id number] Jul, [facility] [address] [id number] [address] [place] [id number] Jul, [facility] [address] [id number] [address] [place] [phone] Jul, [facility] [address] [id number] [address] [place] [id number] 30 Jun, 2009 [facility] [address] [id number] [address] [place] [id number] 29 Jun, 2009 [facility] [address] [id number] [address] [place] [phone] Jun, [facility] [address] [id number] [address] [place] [phone] Jun, [facility] [address] [id number] [address] [place] [phone] Jun, [facility] [address] [id number] [address] [place] [phone] Jun, [facility] [address] [facility] [id number] [address] [place] [phone] Apr, [facility] [address] [facility] [id number] [address] [place] [phone] Apr, [facility] [address] [facility] [id number] [address] [place] [phone] Feb, [facility] [address] [facility] [id number] [address] [place] [phone] January, [facility] [address] [facility] [id number] [address] [place] [id number] Dec, IMMUNIZATIONS No Known Immunizations SOCIAL HISTORY [...] [facility] inpatient mental health e[facility]ly 1999' Hospitalization History hyperkalemia 10/2017 Hospitalization History fluid in lung
--- OUTSIDE RECORDS SUMMARY | 2020-03-01 18:13 | XMS REPORT ---
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 Automatic Name Role Phone NOEMI WASHBURN Unavailable PROBLEMS Type Condition ICD9-CM Code [id number] Code Onset Dates Condition S tatus SNOMED Code Problem Cough R05 Active 74698265 Problem Benign prostatic hyperplasia with lower urinary tract symptoms, unspecified morphology N40.1 Active 76987 6007 Problem Eustachian tube dysfunction, unspecified laterality H69.80 Active 00044132 Problem Chronic pain G89.29 Active 3728205 1 Problem DM neuro manif type II E11.49 Active 06876585 Problem Diabetes E11.9 Active 23054716 Problem Leukocytosis D72.829 Active 5244161 06 Problem Falling R29.6 Active 057671847 Problem Pressure ulcer of other site, stage 3 L89.893 Active 608495162 Problem 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 Active 954865055 Problem Eye exam abnormal R93.8 Active 16 4366076 Problem Dysuria R30.0 Active 50025982 Problem Hypokalemia E87.6 Active 77426359 Problem Morbid obesity E66.01 Active 81383 6002 Problem Anxiety F41.9 Active 53428846 Problem Diabetic polyneuropathy associated with type 2 d iabetes mellitus E11.42 Active 77489248 Problem Essential hypertension I10 Active 18995308 Problem Bilateral primary osteoarthritis of knee M17.0 Active 659963295 Problem Polyneuropathy associated with underlying disease G63 Active 203707615 Problem Anemia of chronic illness D63.8 Acti ve 387957825 Problem Lymphocytosis D72.820 Active 782505 09 Problem Retinal edema H35.81 Active 428721 6 Problem Chronic lymphocytic leukemia C91.10 A ctive 94406566 Problem Bipolar disorder, in partial remission, most rec ent episode depressed F31.75 Active 19909133 Problem Pure hypercholesterolemia E78.00 Acti ve 896841357 Problem Primary osteoarthritis of right knee M17.11 Active 280580181215177 Problem Bipolar disorder F31.9 Active 137 49472 Problem Bipolar I disorder, most recent episode (or curr ent) mixed, moderate F31.62 Active 83409505 Problem Chronic diastolic (congestive) heart failure I50.3 2 Active 330731371 Problem Reactive airway disease J45.909 Active 054793037278 Problem Insomnia, unspecified type G47.00 Act sharon 614079258 Problem Other chronic pain G89.29 Active 8 6167995 Problem Other iron deficiency anemia D50.8 A ctive 62099535 Problem Mild cognitive impairment G31.84 Acti ve 662788969 Problem Skin cancer C44.90 Active 67622302 7 ALLERGIES No Information ENCOUNTERS Encounter Location Date Diagnosis [place] [address] [address] [facility] [id number] [address] [place] [address] Apr, Chronic pain G89.29 and Bipo lar disorder F31.9 [place] [address] [address] [place] [id number] [address] [place] [address] Mar, Bipolar disorder F31.9 and C hronic pain G89.29 [facility] [address] [facility] [id number] [address] [place] [address] Feb, Bipolar disorder F31.9 [facility] [address] [facility] [id number] [address] [place] [address] Feb, Cellulitis of right upper ex tremity L03.113 and Skin abrasion T14.8XXA [facility] [address] [facility] [id number] [address] [place] [address] Feb, Bipolar disorder, in partial remission, most recent episode depressed F31.75 and Mild cognitive impairment G31.84 [facility] [address] [facility] [id number] [address] [place] [address] Feb, Chronic pain G89.29 [facility] [address] [facility] [id number] [address] [place] [address] Feb, Bipolar disorder, in partial remission, most recent episode depressed F31.75 and Mild cognitive impairment G31.84 [facility] [address] [id number] [address] [place] [address] January, Bipolar disorder, in partial remission, most recent episode depressed F31.75 and Mild cognitive impairment G31.84 [facility] [address] [id number] [address] [place] [address] January, Chronic pain G89.29 and Bipo lar disorder F31.9 [facility] [address] [id number] [address] [place] [address] January, Bipolar disorder, in partial remission, most recent episode depressed F31.75 and Mild cognitive impairment G31.84 [facility] [address] [id number] [address] [place] [address] Dec, [facility] [address] [id number] [address] [place] [address] Dec, Chronic pain G89.29 and Bipo lar disorder F31.9 [facility] [address] [id number] [address] [place] [address] Dec, Edema of both lower extremit ies R60.0 [facility] [address] [id number] [address] [place] [address] Dec, Bipolar disorder F31.9 [facility] [address] [id number] [address] [place] [address] Dec, Bipolar disorder, in partial remission, most recent episode depressed F31.75 and Mild cognitive impairment G31.84 [facility] [address] [id number] [address] [place] [address] Nov, [facility] [address] [id number] [address] [place] [address] Nov, Chronic pain G89.29 [facility] [address] [id number] [address] [place] [address] Nov, Bipolar disorder, in partial remission, most recent episode depressed F31.75 and Mild cognitive impairment G31.84 [place] [address] [address] [place] [id number] [address] [place] [address] Nov, Bipolar disorder F31.[address] [address] 04 Nov, 2018 Encounter for Medicare jordanaua [...] N40.1 and Essential hypertension I10 [place] [id number] [place] [address] 21 Oct, 2018 Chronic pain G89.29 [place] [address] [address] [place] [id number] [address] [place] [address] 18 Oct, 2018 Diabetes E11.9 [place] [address] [address] 11 Oct, 2018 Bipolar I disorder, most rec ent episode (or current) mixed, moderate F31.62 and Mild cognitive impairment G31.84 [place] [address] [address] [place] [id number] [address] [place] [address] Oct, Bipolar I disorder, most rec ent episode (or current) mixed, moderate F31.62 and Mild cognitive impairment G31.84 [place] [address] [address] [place] [id number] [address] [place] [address] Sep, Bipolar I disorder, most rec ent episode (or current) mixed, moderate F31.62 and Mild cognitive impairment G31.84 [place] [address] [address] [place] [id number] [address] [place] [address] Sep, [place] [id number] [address] [place] [address] Sep, Diabetes E11.9 ; Hypoxia R09 .02 ; Hyperglycemia R73.9 ; Therapeutic drug monitoring Z51.81 ; BMI 50.0-59.9, adult Z68.43 and Skin cancer C44.90 [facility] [address] [facility] [id number] [address] [place] [address] Sep, Chronic pain G89.29 [facility] [address] [facility] [id number] [address] [place] [address] Sep, Bipolar I disorder, most rec ent episode (or current) mixed, moderate F31.62 [place] [address] [address] [facility] [id number] [address] [place] [address] Sep, [place] [address] [address] [place] [id number] [address] [place] [address] Sep, [place] [address] [address] [place] [id number] [address] [place] [address] Aug, Chronic pain G89.29 [facility] [address] [facility] [id number] [address] [place] [address] Aug, Bipolar I disorder, most rec ent episode (or current) mixed, moderate F31.62 [place] [address] [address] [place] [id number] [address] [place] [address] Aug, Bipolar I disorder, most rec ent episode (or current) mixed, moderate F31.62 and Mild cognitive impairment G31.84 [place] [address] [facility] [id number] [address] [place] [address] Jul, [facility] [address] [facility] [id number] [address] [place] [address] Jul, Chronic pain G89.29 [facility] [address] [facility] [id number] [address] [place] [address] Jul, Bipolar I disorder, most rec ent episode (or current) mixed, moderate F31.62 and Mild cognitive impairment G31.84 [place] [address] [address] [facility] [id number] [address] [place] [address] Jul, Bipolar I disorder, most rec ent episode (or current) mixed, moderate F31.62 and MCI (mild cognitive impairment) G31.84 [facility] [address] [facility] [id number] [address] [place] [address] Jul, [facility] [address] [facility] [id number] [address] [place] [address] Jul, [facility] [address] [facility] [id number] [address] [place] [address] Jul, Bipolar I disorder, most rec ent episode (or current) mixed, moderate F31.62 [place] [address] [address] [facility] [id number] [address] [place] [address] Jul, Chronic pain G89.29 [place] [address] [address] [facility] [id number] [address] [place] [address] Jun, Bipolar I disorder, most rec ent episode (or current) mixed, moderate F31.62 [place] [address] [facility] [id number] [address] [place] [address] Jun, Pre-procedure lab exam Z01.8 12 [place] [address] [address] [place] [id number] [address] [place] [address] Jun, [facility] [address] [place] [id number] [place] [id number] Jun, [facility] [address] [place] [id number] [address] [place] [address] Jun, [place] [address] [facility] [id number] [address] [place] [address] Jun, Forgetfulness R68.89 ; Pre-s yncope R55 ; Localized edema R60.0 ; Other iron deficiency anemia D50.8 and BMI 50.0-59.9, adult Z68.43 [place] [address] [address] [place] [id number] [address] [place] [address] Jun, Chronic pain G89.29 [facility] [address] [place] [id number] [address] [place] [address] 05 Jun, 2018 Chronic pain G89.29 [facility] [address] [facility] [id number] [address] [place] [address] Jun, Bipolar I disorder, most rec ent episode (or current) mixed, moderate F31.62 [place] [address] [address] [place] [id number] [address] [place] [address] May, Chronic pain G89.29 [place] [address] [address] [place] [id number] [address] [place] [address] Apr, [place] [address] [place] [id number] [place] [address] Apr, Chronic pain G89.29 [place] [address] [address] Apr, [facility] M17.11 [place] [address] [address] [place] [id number] [address] [place] [address] Mar, [place] [address] [place] [id number] [place] [address] Mar, BMI 50.0-59.9, adult Z68.43 and Bipolar disorder, in partial remission, most recent episode depressed F31.75 [place] [address] [address] [place] [id number] [place] [address] Mar, Diabetes E11.9 ; Pure hyperc holesterolemia E78.00 ; Essential hypertension I10 ; Nausea with vomiting, unspecified R11.2 and Headache, unspecified headache type R51 [place] [address] [address] [place] [id number] [address] [place] [address] Mar, Bipolar I disorder, most rec ent episode (or current) mixed, moderate F31.62 [place] [address] [address] [place] [id number] [address] [place] [address] Mar, Bipolar I disorder, most rec ent episode (or current) mixed, moderate F31.62 [facility] [address] [id number] [address] [place] [address] Mar, Chronic pain G89.29 [facility] [address] [id number] [address] [place] [address] Mar, Bipolar I disorder, most rec ent episode (or current) mixed, moderate F31.62 [facility] [address] [id number] [address] [place] [address] Feb, Bipolar I disorder, most rec ent episode (or current) mixed, moderate F31.62 [place] [address] [id number] [address] [place] [address] 14 Feb, 2018 Chronic pain G89.29 [facility] [address] [id number] [address] [place] [address] Feb, Decubitus ulcer of right josselin t, stage 3 L89.893 and BMI 50.0-59.9, adult Z68.43 [facility] [address] [id number] [address] [place] [address] Feb, Bipolar I disorder, most rec ent episode (or current) mixed, moderate F31.62 [facility] [address] [id number] [address] [place] [address] Feb, [facility] [address] [id number] [address] [place] [address] January, [facility] [address] [id number] [address] [place] [address] January, Chronic pain G89.29 [facility] [address] [id number] [address] [place] [address] January, Bipolar I disorder, most rec ent episode (or current) mixed, moderate F31.62 [facility] [address] [facility] [id number] [address] [place] [address] January, Bipolar I disorder, most rec ent episode (or current) mixed, moderate F31.62 [facility] [address] [facility] [id number] [address] [place] [address] Dec, Bipolar I disorder, most rec ent episode (or current) mixed, moderate F31.62 and BMI 50.0-59.9, adult Z68.43 [facility] [address] [facility] [id number] [address] [place] [address] Dec, Bipolar I disorder, most rec ent episode (or current) mixed, moderate F31.62 [place] [address] [facility] [id number] [address] [place] [address] Dec, Chronic pain G89.29 [place] [address] [address] [place] [id number] [address] [place] [address] Dec, DM neuro manif type II E11.4 9 ; Right flank pain R10.9 ; 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 ; Encounter for medication monitoring Z51.81 and BMI 50.0-59.9, adult Z68.43 [place] [address] [place] [id number] [address] [place] [address] Dec, Bipolar I disorder, most rec ent episode (or current) mixed, moderate F31.62 [place] [address] [place] [id number] [address] [place] [address] Nov, Bipolar I disorder, most rec ent episode (or current) mixed, moderate F31.62 [place] [address] [place] [id number] [address] [place] [address] Nov, Chronic pain G89.29 [place] [address] [facility] [id number] [address] [place] [address] Nov, Bipolar I disorder, most rec ent episode (or current) mixed, moderate F31.62 [place] [address] [facility] [id number] [address] [place] [address] Nov, Hypokalemia E87.6 [place] [address] [address] Nov, Bipolar I disorder, most rec ent episode (or current) mixed, moderate F31.62 [place] [address] [address] Oct, Chronic pain G89.29 [place] [address] [address] Oct, BMI 50.0-59.9, adult Z68.43 and Bipolar I disorder, most recent episode (or current) mixed, moderate F31.62 [place] [address] [address] Oct, Bipolar I disorder, most rec ent episode (or current) mixed, moderate F31.62 [place] [address] [address] Oct, [place] [address] [address] Oct, Hypokalemia E87.6 [place] [address] [address] Oct, DM neuro manif type II E11.4 9 [place] [address] [address] Oct, Bipolar I disorder, most rec ent episode (or current) mixed, moderate F31.62 [place] [address] [address] Oct, Bipolar I disorder, most rec ent episode (or current) mixed, moderate F31.62 [place] [address] [address] 14 Oct, 2017 Hyperkalemia E87.5 ; Falling R29.6 ; BMI 50.0-59.9, adult Z68.43 and Acute left ankle pain M25.572 [place] [address] [address] 08 Oct, 2017 DM neuro manif type II E11.4 9 [place] [address] [address] Oct, [place] [address] [address] Sep, Chronic pain G89.29 [place] [address] [address] Sep, [place] [address] [address] Sep, Bilateral primary osteoarthr itis of knee M17.0 [place] [address] [address] Sep, Generalized edema R60.[address] [address] 16 Sep, 2017 Bipolar I disorder, most rec ent episode (or current) mixed, moderate F31.[address] [address] 15 Sep, 2017 Hypoxia R09.02 ; Other hyper volemia E87.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 ; Anemia of chronic illness D63.8 and BMI 50.0- 59.9, adult Z68.43 [place] [address] [address] Sep, [address] [address] Sep, Bipolar I disorder, most rec ent episode (or current) mixed, moderate F31.62 [place] [address] [address] Aug, Chronic pain G89.29 [place] [address] [address] [place] [id number] [place] [address] Aug, Generalized edema R60.1 [facility] [address] [facility] [id number] [address] [place] [address] Aug, [facility] [address] [facility] [id number] [address] [place] [address] Aug, [facility] [address] [place] [id number] [address] [place] [address] Aug, Bipolar I disorder, most rec ent episode (or current) mixed, moderate F31.62 [facility] [address] [place] [id number] [address] [place] [address] Aug, Bipolar I disorder, most rec ent episode (or current) mixed, moderate F31.62 [place] [address] [place] [id number] [address] [place] [address] Aug, Chronic pain G89.29 [facility] [address] [place] [id number] [address] [place] [address] Jul, Bipolar I disorder, most rec ent episode (or current) mixed, moderate F31.62 [facility] [address] [place] [id number] [address] [place] [address] Jul, Bipolar I disorder, most rec ent episode (or current) mixed, moderate F31.62 and BMI 60.0-69.9, adult Z68.44 [facility] [address] [place] [id number] [address] [place] [address] Jul, Bipolar I disorder, most rec ent episode (or current) mixed, moderate F31.62 [facility] [address] [place] [id number] [address] [place] [address] Jul, Chronic pain G89.29 [facility] [address] [place] [id number] [address] [place] [address] 02 Jul, 2017 Bipolar I disorder, most rec ent episode (or current) mixed, moderate F31.62 [facility] [address] [place] [id number] [address] [place] [address] Jun, Polyneuropathy associated wi th underlying disease G63 and Diabetes E11.9 [facility] [address] [facility] [id number] [address] [place] [address] 16 Jun, 2017 Bipolar I disorder, most rec ent episode (or current) mixed, moderate F31.62 [facility] [address] [place] [id number] [address] [place] [address] 09 Jun, 2017 Chronic pain G89.29 [facility] [address] [place] [id number] [address] [place] [address] May, Bipolar I disorder, most rec ent episode (or current) mixed, moderate F31.62 [facility] [address] [place] [id number] [address] [place] [address] May, Bipolar I disorder, most rec ent episode (or current) mixed, moderate F31.62 [facility] [address] [place] [id number] [address] [place] [address] May, Diabetic polyneuropathy asso ciated with type 2 diabetes mellitus E11.42 [facility] [address] [place] [id number] [address] [place] [address] 18 May, 2017 Bipolar I disorder, most rec ent episode (or current) mixed, moderate F31.62 [facility] [address] [place] [id number] [address] [place] [address] May, Bipolar I disorder, most rec ent episode (or current) mixed, moderate F31.62 [facility] [address] [facility] [id number] [address] [place] [address] May, Chronic pain G89.29 [facility] [address] [place] [id number] [address] [place] [address] Apr, Bipolar I disorder, most rec ent episode (or current) mixed, moderate F31.62 [facility] [address] [place] [id number] [address] [place] [address] Apr, [facility] [address] [id number] [address] [place] [id number] Apr, Chronic pain G89.29 and DM n euro manif type II E11.49 [facility] [address] [id number] [address] [place] [id number] Apr, [facility] [address] [id number] [address] [place] [id number] Apr, Bipolar I disorder, most rec ent episode (or current) mixed, moderate F31.62 [facility] [address] [id number] [address] [place] [id number] Apr, Chronic pain G89.29 [facility] [address] [id number] [place] [id number] Apr, Iliotibial band syndrome, le ft M76.32 [facility] [address] [id number] [address] [place] [id number] Apr, Bipolar I disorder, most rec ent episode (or current) mixed, moderate F31.62 [facility] [address] [id number] [address] [place] [id number] Mar, Bipolar I disorder, most rec ent episode (or current) mixed, moderate F31.62 [facility] [address] [id number] [address] [place] [id number] Mar, Bipolar I disorder, most rec ent episode (or current) mixed, moderate F31.62 [facility] [address] [id number] [address] [place] [id number] Mar, [facility] [facility] [address] [id number] [address] [place] [address] Mar, Bipolar I disorder, most rec ent episode (or current) mixed, moderate F31.62 [facility] [address] [id number] [address] [place] [address] Mar, Chronic pain G89.29 [facility] [address] [id number] [address] [place] [id number] Mar, Bipolar I disorder, most rec ent episode (or current) mixed, moderate F31.62 [facility] [address] [facility] [id number] [address] [place] [id number] Mar, Bipolar I disorder, most rec ent episode (or current) mixed, moderate F31.62 [facility] [address] [facility] [id number] [address] [place] [address] Mar, Acute pain of left knee M25. 562 ; Left hip pain M25.552 ; Generalized edema R60.1 and Tongue swelling R22.0 [facility] [address] [facility] [id number] [address] [place] [id number] Mar, [facility] [address] [facility] [id number] [address] [place] [id number] Feb, Chronic pain G89.29 [facility] [address] [place] [id number] [address] [place] [id number] Feb, Diabetes E11.9 [facility] [address] [facility] [id number] [address] [place] [id number] January, Chronic pain G89.29 [facility] [address] [facility] [id number] [address] [place] [id number] January, [facility] [address] [facility] [id number] [address] [place] [id number] January, Bipolar I disorder, most rec ent episode (or current) mixed, moderate F31.62 [facility] [address] [facility] [id number] [address] [place] [phone] Dec, Bipolar I disorder, most rec ent episode (or current) mixed, moderate F31.62 [facility] [address] [facility] [id number] [address] [place] [address] Dec, Chronic pain G89.29 [facility] [address] [facility] [id number] [address] [place] [id number] Dec, Bipolar I disorder, most rec ent episode (or current) mixed, moderate F31.62 [facility] [address] [id number] [address] [place] [id number] Dec, Diabetes E11.9 ; Essential h ypertension I10 ; Chronic pain G89.29 and Morbid obesity E66.01 [facility] [address] [id number] [address] [place] [id number] Dec, [facility] [address] [id number] [address] [place] [address] Dec, Bipolar I disorder, most rec ent episode (or current) mixed, moderate F31.62 [facility] [address] [facility] [id number] [address] [place] [id number] Dec, Bipolar I disorder, most rec ent episode (or current) mixed, moderate F31.62 [facility] [address] [facility] [id number] [address] [place] [id number] Nov, Chronic pain G89.29 [facility] [address] [id number] [address] [place] [phone] Nov, Bipolar I disorder, most rec ent episode (or current) mixed, moderate F31.62 [facility] [address] [facility] [id number] [address] [place] [id number] Nov, [facility] [address] [facility] [id number] [address] [place] [id number] Nov, Bipolar I disorder, most rec ent episode (or current) mixed, moderate F31.62 [facility] [address] [id number] [address] [place] [address] Nov, Bipolar I disorder, most rec ent episode (or current) mixed, moderate F31.62 [facility] [address] [facility] [id number] [address] [place] [id number] Nov, [facility] [address] [facility] [id number] [address] [place] [id number] Nov, [facility] [address] [facility] [id number] [address] [place] [id number] Nov, [facility] [address] [facility] [id number] [address] [place] [id number] Oct, Chronic pain G89.29 [facility] [address] [facility] [id number] [address] [place] [phone] Oct, Bipolar I disorder, most rec ent episode (or current) mixed, moderate F31.62 [facility] [address] [facility] [id number] [address] [place] [phone] Oct, [facility] [address] [facility] [id number] [address] [place] [id number] Oct, Chronic pain G89.29 ; Diabet es E11.9 ; Anxiety F41.9 and 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 [facility] [address] [facility] [id number] [address] [place] [address] Oct, [facility] [address] [facility] [id number] [address] [place] [phone] Oct, Diabetes E11.9 [facility] [address] [facility] [id number] [address] [place] [id number] Oct, Bipolar I disorder, most rec ent episode (or current) mixed, moderate F31.62 [facility] [address] [facility] [id number] [address] [place] [address] Sep, Chronic pain G89.29 [facility] [address] [facility] [id number] [address] [place] [address] Sep, Chronic pain G89.29 [facility] [address] [facility] [id number] [address] [place] [address] Aug, Chronic pain G89.29 [facility] [address] [facility] [id number] [address] [place] [id number] Jul, [facility] [address] [facility] [id number] [address] [place] [id number] Jul, Diabetes E11.9 [facility] [address] [facility] [id number] [address] [place] [address] Jul, Chronic pain G89.29 [facility] [address] [facility] [id number] [address] [place] [id number] Jul, Bipolar I disorder, most rec ent episode (or current) mixed, moderate F31.62 [place] [address] [facility] [id number] [address] [place] [id number] Jun, Bipolar I disorder, most rec ent episode (or current) mixed, moderate F31.62 [place] [address] [place] [id number] [address] [place] [address] Jun, [place] [address] [place] [id number] [address] [place] [address] Jun, Bipolar I disorder, most rec ent episode (or current) mixed, moderate F31.62 [place] [address] [place] [id number] [address] [place] [address] May, Insomnia, unspecified type G 47.00 [place] [address] [facility] [id number] [address] [place] [address] May, Bipolar I disorder, most rec ent episode (or current) mixed, moderate F31.62 [place] [address] [place] [id number] [address] [place] [id number] 14 May, 2016 [place] [address] [facility] [id number] [address] [place] [phone] 08 May, 2016 Bipolar I disorder, most rec ent episode (or current) mixed, moderate F31.62 [place] [address] [facility] [id number] [address] [place] [id number] 06 May, 2016 Diabetes E11.9 and Essential hypertension I10 [place] [address] [facility] [id number] [address] [place] [address] Apr, Chronic pain G89.29 [facility] [address] [facility] [id number] [address] [place] [address] Apr, Bipolar I disorder, most rec ent episode (or current) mixed, moderate F31.62 [place] [address] [facility] [id number] [address] [place] [address] Apr, [place] [address] [facility] [id number] [address] [place] [address] Apr, [place] [address] [facility] [id number] [address] [place] [address] Mar, Chronic pain G89.29 ; Headac he, unspecified headache type R51 ; Neuropathy G62.9 ; Pain of right hip joint M25.551 and Essential hypertension I10 [place] [address] [place] [id number] [address] [place] [address] Mar, Chronic pain G89.29 [place] [address] [facility] [id number] [address] [place] [address] Mar, Bipolar I disorder, most rec ent episode (or current) mixed, moderate F31.62 [place] [address] [place] [id number] [address] [place] [address] Feb, Bipolar I disorder, most rec ent episode (or current) mixed, moderate F31.62 and Insomnia, unspecified type G47.00 [place] [address] [facility] [id number] [address] [place] [address] Feb, Chronic pain G89.29 [place] [address] [facility] [id number] [address] [place] [address] Feb, Bipolar I disorder, most rec ent episode (or current) mixed, moderate F31.62 [place] [address] [facility] [id number] [address] [place] [address] January, Bipolar I disorder, most rec ent episode (or current) mixed, moderate F31.62 [place] [address] [place] [id number] [address] [place] [address] January, Chronic pain G89.29 [facility] [address] [id number] [address] [place] [address] January, Chronic pain G89.29 and Esse ntial hypertension I10 [facility] [address] [facility] [id number] [address] [place] [address] January, Bipolar I disorder, most rec ent episode (or current) mixed, moderate F31.62 [facility] [address] [id number] [address] [place] [address] Dec, [facility] [address] [facility] [id number] [address] [place] [phone] Dec, [facility] [address] [facility] [id number] [address] [place] [address] Dec, [facility] [address] [facility] [id number] [address] [place] [phone] Dec, [facility] [address] [facility] [id number] [address] [place] [address] Nov, Reactive airway disease J45. 909 [facility] [address] [facility] [id number] [address] [place] [address] Nov, [facility] [address] [facility] [id number] [address] [place] [address] Nov, [facility] [address] [facility] [id number] [address] [place] [address] 30 Nov, 2015 [facility] [address] [facility] [id number] [address] [place] [id number] Nov, [facility] [address] [place] [id number] [address] [place] [address] Nov, Onychomycosis B35.1 ; Hammer toe M20.40 ; Winsted or callus L84 and DM neuro manif type II E11.49 [facility] [address] [facility] [id number] [address] [place] [address] Nov, Chronic pain G89.29 ; Leukoc ytosis D72.829 and Diabetes E11.9 [place] [address] [address] Nov, [place] [address] [address] Oct, Bronchitis J40 [place] [address] [address] Oct, [place] [address] [address] Oct, [place] [address] [address] Oct, Mastoiditis, unspecified lat erality H70.90 and Type 2 diabetes mellitus with complication E11.8 [place] [address] [address] Sep, [place] [address] [address] Sep, Dysuria R30.0 ; Cough R05 ; Benign prostatic hyperplasia with lower urinary tract symptoms, unspecified morphology N40.1 ; Hypokalemia E87.6 and Eustachian tube dysfunction, unspecified laterality H69.80 [place] [address] [address] Sep, Moderate mixed bipolar I dis order F31.62 [place] [address] [address] Sep, Hypokalemia E87.6 [place] [address] [address] Sep, [place] [address] [address] Sep, Upper respiratory tract infe ction, unspecified type J06.9 [place] [address] [place] [id number] [address] [place] [address] Aug, [facility] [address] [id number] [address] [place] [address] Aug, Dysuria R30.0 [facility] [address] [id number] [address] [place] [address] Aug, [facility] [address] [id number] [address] [place] [address] Jul, [facility] [address] [id number] [address] [place] [id number] Jul, [facility] [address] [id number] [address] [place] [address] Jul, [facility] [address] [id number] [address] [place] [address] Jul, [facility] [address] [id number] [address] [place] [address] Jun, [facility] [address] [id number] [address] [place] [address] Jun, [facility] [address] [id number] [address] [place] [address] Jun, [facility] [address] [id number] [address] [place] [address] May, [facility] [address] [id number] [address] [place] [address] May, Bipolar I disorder, most rec ent episode (or current) mixed, moderate 296.62 [facility] [address] [id number] [address] [place] [address] 16 May, 2015 [facility] [address] [id number] [address] [place] [id number] 02 May, 2015 Bipolar I disorder, most rec ent episode (or current) mixed, moderate 296.62 and Major depressive disorder, recurrent episode, severe, specified as with psychotic behavior 296.34 [facility] [address] [facility] [id number] [address] [place] [address] May, Bipolar I disorder, most rec ent episode (or current) mixed, moderate 296.62 [facility] [address] [facility] [id number] [address] [place] [address] May, [facility] [address] [facility] [id number] [address] [place] [phone] Apr, [facility] [address] [facility] [id number] [address] [place] [address] Apr, [facility] [address] [facility] [id number] [address] [place] [address] Apr, Unspecified disorder of kidn ey and ureter 593.9 and Diabetes mellitus type 2, uncontrolled 250.02 [facility] [address] [place] [id number] [address] [place] [address] Apr, [facility] [address] [facility] [id number] [address] [place] [address] Apr, [facility] [address] [facility] [id number] [address] [place] [address] Apr, [facility] [address] [facility] [id number] [address] [place] [address] Apr, [facility] [address] [facility] [id number] [address] [place] [address] Apr, Diabetes mellitus type II, u ncontrolled 250.02 [facility] [address] [facility] [id number] [address] [place] [address] Apr, [facility] [address] [facility] [id number] [address] [place] [address] Mar, [facility] [address] [facility] [id number] [address] [place] [address] Mar, [facility] [address] [facility] [id number] [address] [place] [address] Mar, [facility] [address] [place] [id number] [address] [place] [address] Mar, Major depressive disorder, r ecurrent episode, severe, specified as with psychotic behavior 296.34 and Bipolar I disorder, most recent episode (or current) mixed, moderate 296.62 [facility] [address] [place] [id number] [address] [place] [address] Mar, Diabetes 250.00 ; Anuria 788 .5 ; Nausea and vomiting 787.01 and Diarrhea 787.91 [facility] [address] [place] [id number] [address] [place] [address] Mar, Diabetes 250.00 [facility] [address] [address] Mar, [facility] [address] [place] [id number] [address] [place] [address] Mar, Diabetes 250.00 [facility] [address] [place] [id number] [address] [place] [address] Mar, [facility] [address] [place] [id number] [address] [place] [id number] Mar, [facility] [address] [place] [id number] [address] [place] [address] Mar, [facility] [address] [place] [id number] [address] [place] [address] Mar, [facility] [address] [place] [id number] [address] [place] [address] Mar, Bipolar I disorder, most rec ent episode (or current) mixed, moderate 296.62 and Major depressive disorder, recurrent episode, severe, specified as with psychotic behavior 296.34 [facility] [address] [place] [id number] [address] [place] [address] Mar, Magnesium deficiency 275.2 ; Hypokalemia 276.8 ; Nausea & vomiting 787.01 and Diabetes mellitus type 2, uncontrolled 250.02 [facility] [address] [place] [id number] [address] [place] [address] Feb, [facility] [address] [address] Feb, Bipolar I disorder, most rec ent episode (or current) mixed, moderate 296.62 [facility] [address] [address] Feb, Nausea and vomiting 787.01 ; Left elbow pain 719.42 ; Anuria 788.5 and Diabetes 250.00 [facility] [address] [address] Feb, [facility] [address] [address] Feb, Hypopotassemia 276.8 and Hyp okalemia 276.8 [place] [address] [address] Feb, Hypopotassemia 276.8 and Hyp okalemia 276.8 [place] [address] [address] Feb, Seborrheic keratoses 702.19 [facility] [address] [place] [id number] [address] [place] [address] Feb, Hypopotassemia 276.8 and Low magnesium levels 275.2 [facility] [address] [place] [id number] [address] [place] [address] January, [facility] [address] [place] [id number] [address] [place] [address] January, [facility] [address] [address] January, [facility] [address] [place] [id number] [address] [place] [address] January, Scalp lesion 709.9 [facility] [address] [address] January, [facility] [address] [id number] [address] [place] [address] Dec, Tear of medial cartilage or meniscus of knee, current 836.0 and 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 [address] [id number] [address] [place] [id number] Dec, [facility] [address] [id number] [address] [place] [id number] Dec, [facility] [address] [id number] [address] [place] [id number] Dec, Squamous cell carcinoma, 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 [facility] [address] [id number] [address] [place] [id number] 14 Dec, 2014 [facility] [address] [id number] [address] [place] [id number] Dec, [facility] [address] [id number] [address] [place] [id number] Nov, [facility] [address] [id number] [address] [place] [id number] Nov, [facility] [address] [id number] [address] [place] [id number] Nov, [facility] [address] [id number] [address] [place] [id number] Nov, [facility] [address] [id number] [address] [place] [id number] Nov, [facility] [address] [id number] [address] [place] [id number] Nov, [facility] [address] [id number] [address] [place] [id number] Nov, [facility] [address] [id number] [address] [place] [id number] Nov, [facility] [address] [id number] [address] [place] [address], [place] [id number] Nov, [facility] [address] [id number] [address] [place] [address], [place] [id number] Nov, [facility] [address] [id number] [address] [place] [address], [place] [id number] Nov, [facility] [address] [id number] [address] [place] [address], [place] [id number] Nov, [facility] [address] [id number] [address] [place] [address], [place] [id number] Oct, 2014 [facility] [address] [id number] [address] [place] [address], [place] [id number] Oct, 2014 [facility] [address] [id number] [address] [place] [address], [place] [id number] Oct, 2014 [facility] [address] [id number] [address] [place] [address], [place] [id number] Oct, 2014 [facility] [address] [id number] [address] [place] [address], [place] [address] Oct, 2014 [facility] [address] [id number] [address] [place] [address], [place] [address] Oct, 2014 [facility] [address] [id number] [address] [place] [address], [place] [address] Oct, 2014 [facility] [address] [id number] [address] [place] [id number] Oct, 2014 [facility] [address] [id number] [address] [place] [address], [place] [address] Oct, [facility] [address] [id number] [address] [place] [address], [place] [address] Sep, [facility] [address] [id number] [address] [place] [address] Sep, [facility] [address] [id number] [address] [place] [address] Sep, [facility] [address] [id number] [address] [place] [address], [place] [address] Sep, [facility] [address] [id number] [address] [place] [address], [place] [address] Sep, [facility] [address] [id number] [address] [place] [address], [place] [address] Sep, [facility] [address] [id number] [address] [place] [address], [place] [address] Sep, [facility] [address] [id number] [address] [place] [address], [place] [address] Sep, [facility] [address] [id number] [address] [place] [address], [place] [address] Sep, [facility] [address] [id number] [address] [place] [address], [place] [address] Sep, [facility] [address] [id number] [address] [place] [address], [place] [address] Sep, [facility] [address] [id number] [address] [place] [address], [place] [address] Sep, [facility] [address] [id number] [address] [place] [address], [place] [address] Sep, [facility] [address] [id number] [address] [place] [address], [place] [address] Sep, [facility] [address] [id number] [address] [place] [address], [place] [address] Sep, [facility] [address] [id number] [address] [place] [address], [place] [address] Sep, [facility] [address] [id number] [address] [place] [address], [place] [address] Aug, [facility] [address] [id number] [address] [place] [address], [place] [address] Aug, [facility] [address] [id number] [facility] [place] [address] Aug, [facility] [address] [id number] [facility] [place] [address] Aug, [facility] [address] [id number] [facility] [place] [address] Aug, [facility] [address] [id number] [facility] [place] [address] Aug, [facility] [address] [id number] [facility] [place] [address] Aug, [facility] [address] [id number] [address] [place] [address], [place] [address] Aug, [facility] [address] [id number] [address] [place] [address], [place] [address] Aug, [facility] [address] [id number] [address] [place] [address], [place] [address] Aug, [facility] [address] [id number] [address] [place] [address], [place] [address] Aug, [facility] [place] [id number] Aug, [facility] [address] [id number] [address] [place] [address], [place] [address] Aug, [facility] [address] [id number] [address] [place] [address], [place] [address] Aug, [facility] [address] [id number] [address] [place] [address], [place] [address] Aug, [facility] [address] [id number] [address] [place] [address], [place] [address] Aug, [facility] [address] [id number] [facility] [place] [address] Aug, [facility] [address] [id number] [address] [place] [address], [place] [address] Aug, [facility] [address] [id number] [address] [place] [address], [place] [address] Aug, [facility] [address] [id number] [address] [place] [address], [place] [address] Aug, [facility] [address] [id number] [address] [place] [address], [place] [address] Aug, [facility] [address] [id number] [address] [place] [address], [place] [address] Aug, [facility] [address] [id number] [address] [place] [address], [place] [address] Aug, [facility] [address] [id number] [address] [place] [address], [place] [address] Aug, [facility] [address] [id number] [address] [place] [address], [place] [address] Aug, [facility] [address] [id number] [address] [place] [address], [place] [address] Aug, [facility] [address] [id number] [address] [place] [address], [place] [address] Aug, [facility] [address] [id number] [address] [place] [address], [place] [address] Aug, [facility] [address] [id number] [address] [place] [address], [place] [address] Aug, [facility] [address] [id number] [address] [place] [address], [place] [address] Aug, [facility] [address] [id number] [address] [place] [address], [place] [address] Jul, [facility] [address] [id number] [address] [place] [address], [place] [address] Jul, [facility] [address] [id number] [address] [place] [address], [place] [address] Jul, [facility] [address] [id number] [address] [place] [address], [place] [address] Jul, [facility] [address] [id number] [address] [place] [address], [place] [address] Jul, [facility] [address] [id number] [address] [place] [address], [place] [address] Jul, [facility] [address] [id number] [address] [place] [address], [place] [address] Jul, [facility] [address] [id number] [address] [place] [address], [place] [address] Jul, [facility] [address] [id number] [address] [place] [address], [place] [address] Jul, [facility] [address] [id number] [address] [place] [address], [place] [address] Jul, [facility] [address] [id number] [address] [place] [address], [place] [address] Jun, [facility] [address] [id number] [address] [place] [address], [place] [address] Jun, [facility] [address] [id number] [address] [place] [address], [place] [address] Jun, [facility] [address] [id number] [address] [place] [address], [place] [address] Jun, [facility] [address] [id number] [address] [place] [address] Jun, [facility] [address] [id number] [address] [place] [address] Jun, [facility] [address] [id number] [address] [place] [address], [place] [address] Jun, [facility] [address] [id number] [address] [place] [address], [place] [address] Jun, [facility] [address] [id number] [address] [place] [address], [place] [address] Jun, [facility] [address] [id number] [address] [place] [address], [place] [address] Jun, 2013 [facility] [address] [id number] [address] [place] [address], [place] [address] 29 Sep, 2013 [facility] [address] [id number] [address] [place] [address], [place] [address] 29 Sep, 2013 [facility] [address] [id number] [address] [place] [address], [place] [address] 26 Sep, 2013 [facility] [address] [id number] [address] [place] [address], [place] [address] 26 Sep, 2013 [facility] [address] [id number] [address] [place] [address], [place] [address] 17 Sep, 2013 [facility] [address] [id number] [address] [place] [address], [place] [address] 17 Sep, 2013 [facility] [address] [id number] [address] [place] [address], [place] [address] 15 May, 2013 [facility] [address] [id number] [address] [place] [address], [place] [address] 15 Sep, 2013 [facility] [address] [id number] [address] [place] [address], [place] [address] 15 May, 2013 [facility] [address] [id number] [address] [place] [address], [place] [address] 15 Sep, 2013 [facility] [address] [id number] [address] [place] [address], [place] [address] 10 Sep, 2013 [facility] [address] [id number] [address] [place] [address], [place] [address] 10 Sep, 2013 [facility] [address] [id number] [address] [place] [address], [place] [address] 09 Sep, 2013 [facility] [address] [id number] [address] [place] [address], [place] [address] 09 Sep, 2013 [facility] [address] [id number] [address] [place] [address], [place] [address] May, [facility] [address] [id number] [address] [place] [address], [place] [address] May, [facility] [address] [id number] [address] [place] [address], [place] [address] Apr, [facility] [address] [id number] [address] [place] [address], [place] [address] Apr, [facility] [address] [id number] [address] [place] [address], [place] [address] Apr, [facility] [address] [id number] [address] [place] [address], [place] [address] Apr, [facility] [address] [id number] [address] [place] [address], [place] [address] Apr, [facility] [address] [id number] [address] [place] [address], [place] [address] Apr, [facility] [address] [id number] [address] [place] [address], [place] [address] Apr, [facility] [address] [id number] [address] [place] [address], [place] [address] Apr, [facility] [address] [id number] [address] [place] [address], [place] [address] Apr, [facility] [address] [id number] [address] [place] [address], [place] [address] Apr, [facility] [address] [id number] [address] [place] [address], [place] [address] Apr, [facility] [address] [id number] [address] [place] [address], [place] [address] Apr, [facility] [address] [id number] [address] [place] [address], [place] [address] Apr, [facility] [address] [id number] [address] [place] [address], [place] [address] Apr, [facility] [address] [id number] [address] [place] [address], [place] [address] Apr, [facility] [address] [id number] [facility] [address] Mar, 2013 [facility] [address] [id number] [address] [place] [address], [place] [address] Mar, [facility] [address] [id number] [address] [place] [address], [place] [address] Mar, [facility] [address] [id number] [address] [place] [address], [place] [address] Mar, [facility] [address] [id number] [address] [place] [address], [place] [address] Mar, [facility] [address] [id number] [address] [place] [address], [place] [address] Mar, [facility] [address] [id number] [address] [place] [address], [place] [address] Mar, [facility] [address] [id number] [address] [place] [address], [place] [address] Mar, [facility] [address] [id number] [address] [place] [address], [place] [address] Mar, [facility] [address] [id number] [address] [place] [address], [place] [address] Mar, [facility] [address] [id number] [address] [place] [address], [place] [address] Mar, 2013 [facility] [address] [id number] [address] [place] [address], [place] [address] Mar, 2013 [facility] [address] [id number] [address] [place] [address], [place] [address] Mar, 2013 [facility] [address] [id number] [address] [place] [address], [place] [address] Mar, 2013 [facility] [address] [id number] [address] [place] [address], [place] [address] Mar, 2013 [facility] [address] [id number] [facility] [place] [address] Mar, [facility] [address] [id number] [facility] [place] [address] Mar, [facility] [address] [id number] [facility] [place] [address] Mar, [facility] [address] [id number] [facility] [place] [address] Feb, [facility] [address] [id number] [facility] [place] [address] Feb, [facility] [address] [id number] [address] [place] [address], [place] [address] Feb, [facility] [address] [id number] [address] [place] [address], [place] [address] Feb, [facility] [address] [id number] [address] [place] [address], [place] [address] Feb, [facility] [address] [id number] [address] [place] [address], [place] [address] Feb, [facility] [address] [id number] [address] [place] [address], [place] [address] Feb, [facility] [address] [id number] [address] [place] [address], [place] [address] Feb, [facility] [address] [id number] [address] [place] [address], [place] [address] Feb, [facility] [address] [id number] [address] [place] [address], [place] [address] Feb, [facility] [address] [id number] [address] [place] [address], [place] [address] Feb, [facility] [address] [id number] [address] [place] [address], [place] [address] Feb, [facility] [address] [id number] [address] [place] [address], [place] [address] Feb, [facility] [address] [id number] [facility] [place] [address] Feb, [facility] [address] [id number] [facility] [place] [address] January, [facility] [address] [id number] [facility] [place] [address] January, [facility] [address] [id number] [address] [place] [address], [place] [address] January, [facility] [address] [id number] [facility] [place] [address] January, [facility] [address] [id number] [address] [place] [address], [place] [address] January, [facility] [address] [id number] [address] [place] [address], [place] [address] January, [facility] [address] [id number] [address] [place] [address], [place] [address] January, [facility] [address] [id number] [address] [place] [address], [place] [address] January, [facility] [address] [id number] [address] [place] [address], [place] [address] January, [facility] [address] [id number] [address] [place] [address], [place] [address] January, [facility] [address] [id number] [address] [place] [address], [place] [address] January, [facility] [address] [id number] [address] [place] [address], [place] [address] January, [facility] [address] [id number] [address] [place] [address], [place] [address] January, [facility] [address] [id number] [address] [place] [address], [place] [address] January, [facility] [address] [id number] [facility] [place] [address] Dec, [facility] [address] [id number] [address] [place] [address], [place] [address] Dec, [facility] [address] [id number] [address] [place] [address], [place] [address] Dec, [facility] [address] [id number] [address] [place] [address], [place] [address] Dec, [facility] [address] [id number] [address] [place] [address], [place] [address] Dec, [facility] [address] [id number] [address] [place] [address], [place] [address] Dec, [facility] [address] [id number] [address] [place] [address], [place] [address] Dec, [facility] [address] [id number] [address] [place] [address], [place] [address] Dec, [facility] [address] [id number] [address] [place] [address], [place] [address] Dec, [facility] [address] [id number] [address] [place] [address], [place] [address] Dec, [facility] [address] [id number] [address] [place] [address], [place] [address] Nov, [facility] [address] [id number] [address] [place] [address], [place] [id number] Nov, [facility] [address] [id number] [address] [place] [address], [place] [address] Nov, [facility] [address] [id number] [address] [place] [address], [place] [address] Nov, [facility] [address] [id number] [address] [place] [address], [place] [id number] Nov, [facility] [address] [id number] [address] [place] [address], [place] [address] Nov, [facility] [address] [id number] [address] [place] [address], [place] [address] Nov, [facility] [address] [id number] [address] [place] [address], [place] [address] Nov, [facility] [address] [id number] [address] [place] [address], [place] [address] Nov, [facility] [address] [id number] [address] [place] [address], [place] [address] Nov, [facility] [address] [id number] [address] [place] [address], [place] [id number] Oct, [facility] [address] [id number] [address] [place] [address], [place] [id number] Oct, [facility] [address] [id number] [address] [place] [address], [place] [address] Oct, [facility] [address] [id number] [address] [place] [address], [place] [id number] Oct, [facility] [address] [id number] [address] [place] [address], [place] [address] Oct, [facility] [address] [id number] [address] [place] [address], [place] [address] Oct, [facility] [address] [id number] [address] [place] [address], [place] [id number] Oct, [facility] [address] [id number] [address] [place] [address], [place] [address] Oct, [facility] [address] [id number] [address] [place] [address], [place] [address] Oct, [facility] [address] [id number] [address] [place] [address], [place] [address] Oct, [facility] [address] [id number] [address] [place] [address], [place] [address] Oct, [facility] [address] [id number] [address] [place] [address], [place] [id number] Oct, [facility] [address] [id number] [address] [place] [address], [place] [address] Oct, [facility] [address] [id number] [address] [place] [address], [place] [id number] Oct, [facility] [address] [id number] [address] [place] [address], [place] [id number] Sep, [facility] [address] [id number] [address] [place] [address], [place] [id number] Sep, [facility] [address] [id number] [address] [place] [address], [place] [id number] Sep, [facility] [address] [id number] [address] [place] [address], [place] [address] Sep, [facility] [address] [id number] [address] [place] [address], [place] [address] Sep, [facility] [address] [id number] [address] [place] [address], [place] [address] Sep, [facility] [address] [id number] [address] [place] [address], [place] [address] Sep, [facility] [address] [id number] [address] [place] [address], [place] [address] Sep, [facility] [address] [id number] [address] [place] [address], [place] [address] Sep, [facility] [address] [id number] [address] [place] [address], [place] [address] Sep, [facility] [address] [id number] [address] [place] [address], [place] [address] Aug, [facility] [address] [id number] [address] [place] [address], [place] [address] Aug, [facility] [address] [id number] [address] [place] [address], [place] [address] Jul, [facility] [address] [id number] [address] [place] [address], [place] [id number] Jul, [facility] [address] [id number] [address] [place] [address], [place] [id number] Jul, [facility] [address] [id number] [address] [place] [address], [place] [address] Jul, [facility] [address] [id number] [address] [place] [address], [place] [address] Jul, [facility] [address] [id number] [address] [place] [address], [place] [address] Jul, [facility] [address] [id number] [address] [place] [address], [place] [address] Jul, [facility] [address] [id number] [address] [place] [address], [place] [address] Jul, [facility] [address] [id number] [address] [place] [address], [place] [address] Jul, [facility] [address] [id number] [address] [place] [address], [place] [id number] Jul, [facility] [address] [id number] [address] [place] [id number] Jul, [facility] [address] [id number] [address] [place] [address], [place] [id number] Jul, [facility] [address] [id number] [address] [place] [id number] Jul, [facility] [address] [id number] [address] [place] [address], [place] [address] Jul, [facility] [address] [id number] [address] [place] [id number] Jul, [facility] [address] [id number] [address] [place] [address], [place] [address] Jul, [facility] [address] [id number] [address] [place], [place] [address], [place] [address] Jul, [facility] [address] [id number] [address] [place] [address], [place] [address] Jul, 2012 [facility] [address] [id number] [address] [place] [address], [place] [address] Jul, 2012 [facility] [address] [id number] [address] [place] [address], [place] [address] Jun, 2012 [facility] [address] [id number] [address] [place] [address], [place] [address] Jun, 2012 [facility] [address] [id number] [address] [place] [address], [place] [address] Jun, 2012 [facility] [address] [id number] [address] [place] [address], [place] [address] Jun, 2012 [facility] [address] [id number] [address] [place] [address], [place] [address] Jun, 2012 [facility] [address] [id number] [address] [place] [address], [place] [address] Jun, 2012 [facility] [address] [id number] [address] [place] [address], [place] [address] Jun, 2012 [facility] [address] [id number] [address] [place] [address], [place] [address] Jun, [facility] [address] [id number] [address] [place] [address], [place] [address] Jun, 2012 [facility] [address] [id number] [address] [place] [address] Jun, 2012 [facility] [address] [id number] [address] [place] [address], [place] [address] Jun, [facility] [address] [id number] [address] [place] [address], [place] [address] May, [facility] [address] [id number] [address] [place] [address], [place] [address] 25 May, 2013 [facility] [address] [id number] [address] [place] [address], [place] [address] 19 May, 2012 [facility] [address] [id number] [address] [place] [address], [place] [address] 17 May, 2012 [facility] [address] [id number] [address] [place] [address], [place] [address] 11 May, 2012 [facility] [address] [id number] [address] [place] [address], [place] [address] 10 May, 2012 [facility] [address] [id number] [address] [place] [address], [place] [address] 09 May, 2013 [facility] [address] [id number] [address] [place] [address], [place] [address] 05 May, 2013 [facility] [address] [id number] [address] [place] [address], [place] [address] Apr, [facility] [address] [id number] [address] [place] [address], [place] [address] Apr, [facility] [address] [id number] [address] [place] [address], [place] [address] Apr, [facility] [address] [id number] [address] [place] [address], [place] [address] Apr, [facility] [address] [id number] [address] [place] [address], [place] [address] Apr, [facility] [address] [id number] [address] [place] [address], [place] [address] Mar, [facility] [address] [id number] [address] [place] [address], [place] [address] Mar, [facility] [address] [id number] [address] [place] [address], [place] [address] Mar, [facility] [address] [id number] [address] [place] [address], [place] [address] Mar, [facility] [address] [id number] [address] [place] [address], [place] [address] Mar, [facility] [address] [id number] [address] [place] [address], [place] [address] Mar, [facility] [address] [id number] [address] [place] [address], [place] [address] Mar, [facility] [address] [id number] [address] [place] [address], [place] [address] Mar, [facility] [address] [id number] [address] [place] [address], [place] [address] Feb, [facility] [address] [id number] [address] [place] [address], [place] [address] Feb, [facility] [address] [id number] [address] [place] [address], [place] [address] January, [facility] [address] [id number] [address] [place] [address], [place] [address] January, [facility] [address] [id number] [address] [place] [address], [place] [address] Dec, [facility] [address] [id number] [address] [place] [address], [place] [address] Dec, [facility] [address] [id number] [address] [place] [address], [place] [address] Nov, [facility] [address] [id number] [address] [place] [address], [place] [address] Nov, [facility] [address] [id number] [address] [place] [address], [place] [address] Nov, [facility] [address] [id number] [address] [place] [address], [place] [address] Nov, [facility] [address] [id number] [address] [place] [address], [place] [address] Oct, [facility] [address] [id number] [address] [place] [address], [place] [address] Oct, [facility] [address] [id number] [address] [place] [address], [place] [address] 26 Oct, 2012 [facility] [address] [id number] [address] [place] [address], [place] [address] 26 Oct, 2012 [facility] [address] [id number] [address] [place] [address], [place] [address] 16 Oct, 2012 [facility] [address] [id number] [address] [place] [address], [place] [address] 14 Oct, 2012 [facility] [address] [id number] [address] [place] [address], [place] [address] 08 Oct, 2012 [facility] [address] [id number] [address] [place] [address], [place] [address] 07 Oct, 2012 [facility] [address] [id number] [address] [place] [address], [place] [address] 03 Oct, 2012 [facility] [address] [id number] [address] [place] [address], [place] [address] 30 Sep, 2012 [facility] [address] [id number] [address] [place] [address], [place] [address] Sep, [facility] [address] [id number] [address] [place] [address], [place] [address] Sep, [facility] [address] [id number] [address] [place] [address], [place] [address] Sep, [facility] [address] [id number] [address] [place] [address], [place] [address] Sep, [facility] [address] [id number] [address] [place] [address], [place] [address] Sep, [facility] [address] [id number] [address] [place] [address], [place] [address] 09 Sep, 2012 [facility] [address] [id number] [address] [place] [address], [place] [address] 08 Sep, 2012 [facility] [address] [id number] [address] [place] [address], [place] [address] Aug, [facility] [address] [id number] [address] [place] [address], [place] [address] Aug, [facility] [address] [id number] [address] [place] [address], [place] [address] Aug, [facility] [address] [id number] [address] [place] [address], [place] [address] Aug, [facility] [address] [id number] [address] [place] [address], [place] [address] Aug, [facility] [address] [id number] [address] [place] [address], [place] [address] Aug, [facility] [address] [id number] [address] [place] [address], [place] [address] Aug, [facility] [address] [id number] [address] [place] [address], [place] [address] Aug, [facility] [address] [id number] [address] [place] [address], [place] [address] Jul, [facility] [address] [id number] [address] [place] [address], [place] [address] Jul, [facility] [address] [id number] [address] [place] [address], [place] [address] Jul, [facility] [address] [id number] [address] [place] [address], [place] [address] Jul, [facility] [address] [id number] [address] [place] [address] Jul, [facility] [address] [id number] [address] [place] [address], [place] [address] Jul, [facility] [address] [id number] [address] [place] [address], [place] [address] Jun, [facility] [address] [id number] [address] [place] [address], [place] [address] Jun, [facility] [address] [id number] [address] [place] [address], [place] [address] 23 Jun, 2012 [facility] [address] [id number] [address] [place] [address], [place] [address] 23 Jun, 2012 [facility] [address] [id number] [address] [place] [address], [place] [address] 22 Jun, 2012 [facility] [address] [id number] [address] [place] [address], [place] [address] 19 Jun, 2012 [facility] [address] [id number] [address] [place] [address], [place] [address] 19 Jun, 2012 [facility] [address] [id number] [address] [place] [address], [place] [address] 10 Jun, 2012 [facility] [address] [id number] [address] [place] [address], [place] [address] 10 Jun, 2012 [facility] [address] [id number] [address] [place] [address], [place] [address] 26 May, 2012 [facility] [address] [id number] [address] [place] [address], [place] [address] 24 May, 2012 [facility] [address] [id number] [address] [place] [address], [place] [address] 18 May, 2012 [facility] [address] [id number] [address] [place] [address], [place] [address] 30 Apr, 2012 [facility] [address] [id number] [address] [place] [address], [place] [address] 29 Apr, 2012 [facility] [address] [id number] [address] [place] [address], [place] [address] 18 Apr, 2012 [facility] [address] [id number] [address] [place] [address], [place] [address] 14 Apr, 2012 [facility] [address] [id number] [address] [place] [address], [place] [address] 10 Apr, 2012 [facility] [address] [id number] [address] [place] [address], [place] [address] Apr, [facility] [address] [id number] [address] [place] [address], [place] [address] Mar, [facility] [address] [id number] [address] [place] [address], [place] [address] Mar, [facility] [address] [id number] [address] [place] [address], [place] [address] Mar, [facility] [address] [id number] [address] [place] [address], [place] [address] Mar, [facility] [address] [id number] [address] [place] [address], [place] [address] Feb, [facility] [address] [id number] [address] [place] [address], [place] [address] Feb, [facility] [address] [id number] [address] [place] [address], [place] [address] Feb, [facility] [address] [id number] [address] [place] [address], [place] [address] Feb, [facility] [address] [id number] [address] [place] [address], [place] [address] Feb, [facility] [address] [id number] [address] [place] [address], [place] [address] January, [facility] [address] [id number] [address] [place] [address], [place] [address] January, [facility] [address] [id number] [address] [place] [address], [place] [address] January, [facility] [address] [id number] [address] [place] [address], [place] [address] January, [facility] [address] [id number] [address] [place] [address], [place] [address] January, [facility] [address] [id number] [address] [place] [address], [place] [address] January, [facility] [address] [id number] [address] [place] [address], [place] [address] 24 Dec, 2011 [facility] [address] [id number] [address] [place] [address], [place] [address] 24 Dec, 2011 [facility] [address] [id number] [address] [place] [address], [place] [address] 17 Dec, 2011 [facility] [address] [id number] [address] [place] [address], [place] [address] 09 Dec, 2011 [facility] [address] [id number] [address] [place] [address], [place] [address] 06 Dec, 2011 [facility] [address] [id number] [address] [place] [address], [place] [address] 27 Nov, 2011 [facility] [address] [id number] [address] [place] [address], [place] [address] 14 Nov, 2011 [facility] [address] [id number] [address] [place] [address], [place] [address] 12 Nov, 2011 [facility] [address] [id number] [address] [place] [address], [place] [address] 07 Nov, 2011 [facility] [address] [id number] [address] [place] [address], [place] [address] 29 Oct, 2011 [facility] [address] [id number] [address] [place] [address], [place] [address] 28 Oct, 2011 [facility] [address] [id number] [address] [place] [address], [place] [address] 24 Oct, 2011 [facility] [address] [id number] [address] [place] [address], [place] [address] 13 Oct, 2011 [facility] [address] [id number] [address] [place] [address], [place] [address] 08 Oct, 2011 [facility] [address] [id number] [address] [place] [address], [place] [address] 31 Sep, 2011 [facility] [address] [id number] [address] [place] [address], [place] [address] Sep, [facility] [address] [id number] [address] [place] [address], [place] [address] Sep, [facility] [address] [id number] [address] [place] [address], [place] [address] Sep, [facility] [address] [id number] [address] [place] [address], [place] [address] Sep, [facility] [address] [id number] [address] [place] [address], [place] [address] Sep, [facility] [address] [id number] [address] [place] [address], [place] [address] Aug, [facility] [address] [id number] [address] [place] [address], [place] [address] Aug, [facility] [address] [id number] [address] [place] [address], [place] [address] Aug, [facility] [address] [id number] [address] [place] [address], [place] [address] Jul, [facility] [address] [id number] [address] [place] [address], [place] [address] Jul, [facility] [address] [id number] [address] [place] [address], [place] [address] Jul, [facility] [address] [id number] [address] [place] [address], [place] [address] Jul, [facility] [address] [id number] [address] [place] [address], [place] [address] Jun, [facility] [address] [id number] [address] [place] [address], [place] [address] Jun, [facility] [address] [id number] [address] [place] [address], [place] [address] Jun, [facility] [address] [id number] [address] [place] [address], [place] [address] Jun, [facility] [address] [id number] [address] [place] [address], [place] [address] 10 Jun, 2011 [facility] [address] [id number] [address] [place] [address], [place] [address] 10 Jun, 2011 [facility] [address] [id number] [address] [place] [address], [place] [address] 11 Mar, 2011 [facility] [address] [id number] [address] [place] [address], [place] [address] 18 Dec, 2010 [facility] [address] [id number] [address] [place] [address], [place] [address] 11 Dec, 2010 [facility] [address] [id number] [address] [place] [address], [place] [address] 18 Nov, 2010 [facility] [address] [id number] [address] [place] [address], [place] [address] 16 Nov, 2010 [facility] [address] [id number] [address] [place] [address], [place] [address] 10 Sep, 2010 [facility] [address] [id number] [address] [place] [address], [place] [address] 31 Aug, 2010 [facility] [address] [id number] [address] [place] [address], [place] [address] 29 Aug, 2010 [facility] [address] [id number] [address] [place] [address], [place] [address] 29 Aug, 2010 [facility] [address] [id number] [address] [place] [address], [place] [address] 29 Aug, 2010 [facility] [address] [id number] [address] [place] [address], [place] [id number] 27 Aug, 2010 [facility] [address] [id number] [address] [place] [address], [place] [id number] 14 Aug, 2010 [facility] [address] [id number] [address] [place] [address], [place] [id number] 08 Aug, 2010 [facility] [address] [id number] [address] [place] [address], [place] [id number] 08 Aug, 2010 [facility] [address] [id number] [address] [place] [address], [place] [id number] Aug, [facility] [address] [id number] [address] [place] [address], [place] [address] Aug, [facility] [address] [id number] [address] [place] [address], [place] [id number] Aug, [facility] [address] [id number] [address] [place] [address], [place] [id number] Aug, [facility] [address] [id number] [address] [place] [address], [place] [id number] Jul, [facility] [address] [id number] [address] [place] [address], [place] [address] Jul, [facility] [address] [id number] [address] [place] [address], [place] [id number] Jul, [facility] [address] [id number] [address] [place] [address], [place] [id number] Jul, [facility] [address] [id number] [address] [place] [address], [place] [id number] Jul, [facility] [address] [id number] [address] [place] [address], [place] [id number] Jul, [facility] [address] [id number] [address] [place] [address], [place] [id number] 24 Jun, 2010 [facility] [address] [id number] [address] [place] [address], [place] [address] Jun, [facility] [address] [id number] [address] [place] [address], [place] [id number] Jun, [facility] [address] [id number] [address] [place] [address], [place] [address] Jun, [facility] [address] [id number] [address] [place] [address], [place] [address] 16 Apr, 2010 [facility] [address] [id number] [address] [place] [address], [place] [id number] Mar, [facility] [address] [id number] [address] [place] [id number] Feb, [facility] [address] [id number] [address] [place] [id number] January, [facility] [address] [id number] [address] [place] [id number] 15 Dec, 2009 [facility] [address] [id number] [address] [place] [id number] Nov, [facility] [address] [id number] [address] [place] [address], [place] [address] Aug, [facility] [address] [id number] [address] [place] [phone] Aug, [facility] [address] [id number] [address] [place] [address], [place] [address] Aug, [facility] [address] [id number] [address] [place] [id number] Jul, [facility] [address] [id number] [address] [place] [id number] Jul, [facility] [address] [id number] [address] [place] [id number] Jul, [facility] [address] [id number] [address] [place] [id number] 30 Jun, 2009 [facility] [address] [id number] [address] [place] [id number] 29 Jun, 2009 [facility] [address] [id number] [address] [place] [phone] Jun, [facility] [address] [id number] [address] [place] [phone] Jun, [facility] [address] [id number] [address] [place] [phone] Jun, [facility] [address] [id number] [address] [place] [phone] Jun, [facility] [address] [facility] [id number] [address] [place] [phone] Apr, [facility] [address] [facility] [id number] [address] [place] [id number] Apr, [facility] [address] [facility] [id number] [address] [place] [phone] Feb, [facility] [address] [facility] [id number] [address] [place] [id number] January, [facility] [address] [facility] [id number] [address] [place] [phone] Dec, IMMUNIZATIONS No Known Immunizations SOCIAL HISTORY Never Assessed REASON FOR VISIT PLAN OF CARE VITAL SIGNS MEDICATIONS Unknown Medications RESULTS No Results PROCEDURES Procedure Date Ordered Result Body Site COMPLETE CBC W/AUTO DIFF WBC Sep 05, 2014 LIPID PANEL Sep 05, 2014 COMPREHEN METABOLIC PANEL Sep 05, 2014 VISIT Sep 05, 2014 VENIPUNCT, ROUTINE* Sep 05, 2014 INSTRUCTIONS MEDICATIONS ADMINISTERED No Known Medications [...] inability to urinate 09/16/15 Hospitalization History [facility] health ea rly 2000's Hospitalization History hyperkalemia 10/2017 Hospitalization History fluid in lung
--- OUTSIDE RECORDS SUMMARY | 2020-03-01 18:13 | XMS REPORT ---
Author Michele Fuentes Organization [facility] Address [address] [place] [address] Care Team Providers Care Office Copy Selector Name Role Phone TOBY ROSELINE Unavailable PROBLEMS Type Condition ICD9-CM Code ZNC05-FY Code Onset Dates Condition S tatus SNOMED Code Problem Cough R05 Active 29805147 Problem Benign prostatic hyperplasia with lower urinary tract symptoms, unspecified morphology N40.1 Active 03215 6007 Problem Eustachian tube dysfunction, unspecified laterality H69.80 Active 43939260 Problem Chronic pain G89.29 Active 9480739 1 Problem DM neuro manif type II E11.49 Active 27063553 Problem Diabetes E11.9 Active 61392355 Problem Leukocytosis D72.829 Active 7281438 06 Problem Falling R29.6 Active 247921575 Problem Pressure ulcer of other site, stage 3 L89.893 Active 835602402 Problem 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 Active 025028813 Problem Eye exam abnormal R93.8 Active 16 4344659 Problem Dysuria R30.0 Active 69292031 Problem Hypokalemia E87.6 Active 75718644 Problem Morbid obesity E66.01 Active 80728 6002 Problem Anxiety F41.9 Active 30401683 Problem Diabetic polyneuropathy associated with type 2 d iabetes mellitus E11.42 Active 77604582 Problem Essential hypertension I10 Active 76684768 Problem Bilateral primary osteoarthritis of knee M17.0 Active 146884232 Problem Polyneuropathy associated with underlying disease G63 Active 838933036 Problem Anemia of chronic illness D63.8 Acti ve 910500307 Problem Lymphocytosis D72.820 Active 793672 09 Problem Retinal edema H35.81 Active 110832 6 Problem Chronic lymphocytic leukemia C91.10 A ctive 84017919 Problem Bipolar disorder, in partial remission, most rec ent episode depressed F31.75 Active 18949823 Problem Pure hypercholesterolemia E78.00 Acti ve 564057444 Problem Primary osteoarthritis of right knee M17.11 Active 594756260867596 Problem Bipolar disorder F31.9 Active 137 16267 Problem Bipolar I disorder, most recent episode (or curr ent) mixed, moderate F31.62 Active 19033087 Problem Chronic diastolic (congestive) heart failure I50.3 2 Active 104795674 Problem Reactive airway disease J45.909 Active 422139087767 Problem Insomnia, unspecified type G47.00 Act sharon 958713165 Problem Other chronic pain G89.29 Active 8 0917791 Problem Other iron deficiency anemia D50.8 A ctive 74000021 Problem Mild cognitive impairment G31.84 Acti ve 184776361 Problem Skin cancer C44.90 Active 36841614 7 ALLERGIES No Information ENCOUNTERS Encounter Location Date Diagnosis [place] [address] [place] [id number] [place] [phone] Apr, Chronic pain G89.29 and Bipo lar disorder F31.9 [place] [address] [place] [id number] [place] [address] Mar, Bipolar disorder F31.9 and C hronic pain G89.29 [place] [address] [place] [id number] [address] [place] [address] Feb, Bipolar disorder F31.9 [place] [address] [place] [id number] [place] [address] Feb, Cellulitis of right upper ex tremity L03.113 and Skin abrasion T14.8XXA [place] [address] [place] [id number] [place] [address] Feb, Bipolar disorder, in partial remission, most recent episode depressed F31.75 and Mild cognitive impairment G31.84 [place] [address] [facility] [id number] [address] [place] [address] Feb, Chronic pain G89.29 [place] [address] [place] [id number] [place] [address] Feb, Bipolar disorder, in partial remission, most recent episode depressed F31.75 and Mild cognitive impairment G31.84 [place] [address] [id number] [address] [place] [address] January, Bipolar disorder, in partial remission, most recent episode depressed F31.75 and Mild cognitive impairment G31.84 [facility] [address] [id number] [address] [place] [address] January, Chronic pain G89.29 and Bipo lar disorder F31.9 [facility] [address] [id number] [address] [place] [address] January, Bipolar disorder, in partial remission, most recent episode depressed F31.75 and Mild cognitive impairment G31.84 [facility] [address] [id number] [address] [place] [address] Dec, [facility] [address] [id number] [address] [place] [address] Dec, Chronic pain G89.29 and Bipo lar disorder F31.9 [facility] [address] [id number] [address] [place] [phone] Dec, Edema of both lower extremit ies R60.0 [facility] [address] [id number] [address] [place] [address] Dec, Bipolar disorder F31.9 [facility] [address] [id number] [address] [place] [address] Dec, Bipolar disorder, in partial remission, most recent episode depressed F31.75 and Mild cognitive impairment G31.84 [facility] [address] [id number] [address] [place] [address] Nov, [facility] [address] [id number] [address] [place] [address] Nov, Chronic pain G89.29 [facility] [address] [id number] [address] [place] [address] Nov, Bipolar disorder, in partial remission, most recent episode depressed F31.75 and Mild cognitive impairment G31.84 [facility] [id number] [place] [address] Nov, Bipolar disorder F31.[address] [address] 04 Nov, 2018 Encounter for Medicare [place] [...] unspecified morphology N40.1 and Essential hypertension I10 [address] [address] Oct, Chronic pain G89.29 [place] [address] [address] 18 Oct, 2018 Diabetes E11.9 [place] [address] [address] Oct, Bipolar I disorder, most rec ent episode (or current) mixed, moderate F31.62 and Mild cognitive impairment G31.84 [place] [address] [place] [id number] [place] [address] Oct, Bipolar I disorder, most rec ent episode (or current) mixed, moderate F31.62 and Mild cognitive impairment G31.84 [place] [address] [place] [id number] [place] [address] Sep, Bipolar I disorder, most rec ent episode (or current) mixed, moderate F31.62 and Mild cognitive impairment G31.84 [place] [address] [place] [id number] [place] [address] Sep, [place] [address] [place] [id number] [place] [address] Sep, Diabetes E11.9 ; Hypoxia R09 .02 ; Hyperglycemia R73.9 ; Therapeutic drug monitoring Z51.81 ; BMI 50.0-59.9, adult Z68.43 and Skin cancer C44.90 [facility] [address] [id number] [address] [place] [address] Sep, Chronic pain G89.29 [facility] [address] [id number] [address] [place] [address] Sep, Bipolar I disorder, most rec ent episode (or current) mixed, moderate F31.62 [facility] [address] [id number] [address] [place] [address] Sep, [facility] [address] [facility]] [id number] [address] [place] [address] Sep, [facility] [address] [facility]] [id number] [address] [place] [address] Aug, Chronic pain G89.29 [facility] [address] [id number] [address] [place] [address] Aug, Bipolar I disorder, most rec ent episode (or current) mixed, moderate F31.62 [place] [address] [facility]] [id number] [address] [place] [address] Aug, Bipolar I disorder, most rec ent episode (or current) mixed, moderate F31.62 and Mild cognitive impairment G31.84 [facility] [address] [facility]] [id number] [address] [place] [address] Jul, [facility] [address] [id number] [address] [place] [address] Jul, Chronic pain G89.29 [facility] [address] [facility]] [id number] [address] [place] [address] Jul, Bipolar I disorder, most rec ent episode (or current) mixed, moderate F31.62 and Mild cognitive impairment G31.84 [place] [address] [facility]] [id number] [address] [place] [address] Jul, Bipolar I disorder, most rec ent episode (or current) mixed, moderate F31.62 and MCI (mild cognitive impairment) G31.84 [facility] [address] [id number] [address] [place] [phone] Jul, [facility] [address] [facility]] [id number] [address] [place] [address] Jul, [facility] [address] [facility]] [id number] [address] [place] [address] Jul, Bipolar I disorder, most rec ent episode (or current) mixed, moderate F31.62 [facility] [address] [id number] [address] [place] [address] Jul, Chronic pain G89.29 [facility] [address] [facility]] [id number] [address] [place] [address] Jun, Bipolar I disorder, most rec ent episode (or current) mixed, moderate F31.62 [facility] [address] [facility]] [id number] [address] [place] [address] Jun, Pre-procedure lab exam Z01.8 12 [facility] [address] [facility]] [id number] [address] [place] [address] Jun, [facility] [address] [id number] [place] [address] [id number] Jun, [facility] [address] [facility]] [id number] [address] [place] [address] Jun, [facility] [address] [facility]] [id number] [address] [place] [address] Jun, Forgetfulness R68.89 ; Pre-s yncope R55 ; Localized edema R60.0 ; Other iron deficiency anemia D50.8 and BMI 50.0-59.9, adult Z68.43 [facility] [address] [facility]] [id number] [address] [place] [address] Jun, Chronic pain G89.29 [facility] [address] [facility]] [id number] [address] [place] [address] Jun, Chronic pain G89.29 [facility] [address] [facility]] [id number] [address] [place] [address] Jun, Bipolar I disorder, most rec ent episode (or current) mixed, moderate F31.62 [facility] [address] [place] [id number] [address] [place] [address] May, Chronic pain G89.29 [facility] [address] [facility]] [id number] [address] [place] [address] Apr, [place] [address] [facility]] [id number] [address] [place] [phone] Apr, Chronic pain G89.29 [place] [address] [place] [id number] [address] [place] [address] Apr, Primary osteoarthritis of ri t knee M17.11 [place] [address] [facility]] [id number] [address] [place] [address] Mar, [place] [address] [place] [id number] [address] [place] [address] Mar, BMI 50.0-59.9, adult Z68.43 and Bipolar disorder, in partial remission, most recent episode depressed F31.75 [place] [address] [place] [id number] [place] [address] Mar, Diabetes E11.9 ; Pure hyperc holesterolemia E78.00 ; Essential hypertension I10 ; Nausea with vomiting, unspecified R11.2 and Headache, unspecified headache type R51 [place] [address] [place] [id number] [place] [address] Mar, Bipolar I disorder, most rec ent episode (or current) mixed, moderate F31.62 [place] [address] [place] [id number] [place] [address] Mar, Bipolar I disorder, most rec ent episode (or current) mixed, moderate F31.62 [facility] [address] [facility]] [id number] [address] [place] [address] Mar, Chronic pain G89.29 [facility] [address] [facility]] [id number] [address] [place] [address] Mar, Bipolar I disorder, most rec ent episode (or current) mixed, moderate F31.62 [facility] [address] [facility]] [id number] [address] [place] [address] Feb, Bipolar I disorder, most rec ent episode (or current) mixed, moderate F31.62 [place] [address] [facility]] [id number] [address] [place] [address] Feb, Chronic pain G89.29 [facility] [address] [facility]] [id number] [address] [place] [address] Feb, Decubitus ulcer of right josselin t, stage 3 L89.893 and BMI 50.0-59.9, adult Z68.43 [facility] [address] [facility]] [id number] [address] [place] [address] Feb, Bipolar I disorder, most rec ent episode (or current) mixed, moderate F31.62 [facility] [address] [facility]] [id number] [address] [place] [address] Feb, [facility] [address] [facility]] [id number] [address] [place] [address] January, [facility] [address] [facility]] [id number] [address] [place] [address] January, Chronic pain G89.29 [facility] [address] [facility]] [id number] [address] [place] [address] January, Bipolar I disorder, most rec ent episode (or current) mixed, moderate F31.62 [facility] [address] [facility]] [id number] [address] [place] [address] January, Bipolar I disorder, most rec ent episode (or current) mixed, moderate F31.62 [place] [address] [facility]] [id number] [address] [place] [address] Dec, Bipolar I disorder, most rec ent episode (or current) mixed, moderate F31.62 and BMI 50.0-59.9, adult Z68.43 [place] [address] [facility]] [id number] [address] [place] [address] Dec, Bipolar I disorder, most rec ent episode (or current) mixed, moderate F31.62 [place] [address] [facility]] [id number] [address] [place] [address] Dec, Chronic pain G89.29 [place] [address] [place] [id number] [address] [place] [address] Dec, DM neuro manif type II E11.4 9 ; Right flank pain R10.9 ; [facility] 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 Z79.891 ; Encounter for medication monitoring Z51.81 and BMI 50.0-59.9, adult Z68.43 [place] [address] [facility]] [id number] [address] [place] [address] Dec, Bipolar I disorder, most rec ent episode (or current) mixed, moderate F31.62 [place] [address] [place] [id number] [address] [place] [address] Nov, Bipolar I disorder, most rec ent episode (or current) mixed, moderate F31.62 [place] [address] [facility]] [id number] [address] [place] [address] Nov, Chronic pain G89.29 [place] [address] [facility]] [id number] [address] [place] [address] Nov, Bipolar I disorder, most rec ent episode (or current) mixed, moderate F31.62 [place] [address] [facility]] [id number] [address] [place] [address] Nov, Hypokalemia E87.6 [place] [address] [place] [id number] [address] [place] [address] Nov, Bipolar I disorder, most rec ent episode (or current) mixed, moderate F31.62 [place] [address] [place] [id number] [place] [address] Oct, Chronic pain G89.29 [place] [address] [address] Oct, BMI 50.0-59.9, adult Z68.43 and Bipolar I disorder, most recent episode (or current) mixed, moderate F31.62 [place] [address] [address] Oct, Bipolar I disorder, most rec ent episode (or current) mixed, moderate F31.62 [place] [address] [address] Oct, [place] [address] [address] Oct, Hypokalemia E87.6 [place] [address] [address] Oct, DM neuro manif type II E11.4 9 [place] [address] [address] Oct, Bipolar I disorder, most rec ent episode (or current) mixed, moderate F31.62 [place] [address] [address] Oct, Bipolar I disorder, most rec ent episode (or current) mixed, moderate F31.62 [place] [address] [address] 14 Oct, 2017 Hyperkalemia E87.5 ; Falling R29.6 ; BMI 50.0-59.9, adult Z68.43 and Acute left ankle pain M25.572 [place] [address] [address] 08 Oct, 2017 DM neuro manif type II E11.4 9 [place] [address] [address] Oct, [facility] [address] [place] [id number] [place] [address] Sep, Chronic pain G89.29 [place] [address] [address] Sep, [place] [address] [address] Sep, Bilateral primary osteoarthr itis of knee M17.0 [place] [address] [address] Sep, Generalized edema R60.1 [place] [address] [address] Sep, Bipolar I disorder, most rec ent episode (or current) mixed, moderate F31.62 [place] [address] [address] Sep, Hypoxia R09.02 ; Other hyper volemia E87.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 ; Anemia of chronic illness D63.8 and BMI 50.0- 59.9, adult Z68.43 [place] [address] [address] Sep, [place] [address] [address] Sep, Bipolar I disorder, most rec ent episode (or current) mixed, moderate F31.62 [place] [address] [place] [id number] [place] [address] Aug, Chronic pain G89.29 [place] [address] [place] [address] Aug, Generalized edema R60.1 [facility] [address] [id number] [address] [place] [phone] Aug, [facility] [address] [facility]] [id number] [address] [place] [address] Aug, [facility] [address] [place] [id number] [address] [place] [address] Aug, Bipolar I disorder, most rec ent episode (or current) mixed, moderate F31.62 [place] [address] [id number] [address] [place] [address] Aug, Bipolar I disorder, most rec ent episode (or current) mixed, moderate F31.62 [place] [address] [place] [id number] [address] [place] [address] Aug, Chronic pain G89.29 [place] [address] [place] [id number] [place] [address] Jul, Bipolar I disorder, most rec ent episode (or current) mixed, moderate F31.62 [place] [address] [place] [id number] [address] [place] [address] Jul, Bipolar I disorder, most rec ent episode (or current) mixed, moderate F31.62 and BMI 60.0-69.9, adult Z68.44 [place] [address] [place] [id number] [address] [place] [address] 16 Jul, 2017 Bipolar I disorder, most rec ent episode (or current) mixed, moderate F31.62 [place] [address] [facility]] [id number] [address] [place] [address] Jul, Chronic pain G89.29 [facility] [address] [place] [id number] [address] [place] [address] 02 Jul, 2017 Bipolar I disorder, most rec ent episode (or current) mixed, moderate F31.62 [place] [address] [facility]] [id number] [address] [place] [address] Jun, Polyneuropathy associated wi th underlying disease G63 and Diabetes E11.9 [facility] [address] [facility]] [id number] [address] [place] [address] 16 Jun, 2017 Bipolar I disorder, most rec ent episode (or current) mixed, moderate F31.62 [facility] [address] [facility]] [id number] [address] [place] [address] 09 Jun, 2017 Chronic pain G89.29 [facility] [address] [facility]] [id number] [address] [place] [address] May, Bipolar I disorder, most rec ent episode (or current) mixed, moderate F31.62 [place] [address] [address] [facility] [place]NOTE 3] [id number] [address] [place] [phone] May, Bipolar I disorder, most rec ent episode (or current) mixed, moderate F31.62 [place] [address] [address] [facility] [place]NOTE 3] [id number] [address] [place] [id number] May, Diabetic polyneuropathy asso ciated with type 2 diabetes mellitus E11.42 [facility] ([facility] [address] [facility] [place]NOTE 3] [id number] [address] [place] [id number] 18 May, 2017 Bipolar I disorder, most rec ent episode (or current) mixed, moderate F31.62 [facility] ([facility] [address] [facility] [place]NOTE 3] [id number] [address] [place] [phone] May, Bipolar I disorder, most rec ent episode (or current) mixed, moderate F31.62 [facility] ([facility] [address] [facility] [place]NOTE 3] [id number] [address] [place] [phone] May, Chronic pain G89.29 [facility] ([facility] [address] [facility] [place]NOTE 3] [id number] [address] [place] [phone] Apr, Bipolar I disorder, most rec ent episode (or current) mixed, moderate F31.62 [facility] ([facility] [address] [facility] [place]NOTE 3] [id number] [address] [place] [phone] Apr, [facility] ([facility] [address] [place] [id number] [address] [place] [phone] Apr, Chronic pain G89.29 and DM n euro manif type II E11.49 [facility] ([facility] [address] [id number] [address] [place] [phone] Apr, [facility] ([facility] [address] [facility] [place]NOTE 3] [id number] [address] [place] [phone] Apr, Bipolar I disorder, most rec ent episode (or current) mixed, moderate F31.62 [facility] [address] [id number] [address] [place] [phone] Apr, Chronic pain G89.29 [facility] [address] [id number] [address] [place] [phone] Apr, Iliotibial band syndrome, le ft M76.32 [facility] [address] [facility]] [id number] [address] [place] [phone] Apr, Bipolar I disorder, most rec ent episode (or current) mixed, moderate F31.62 [facility] [address] [id number] [address] [place] [phone] Mar, Bipolar I disorder, most rec ent episode (or current) mixed, moderate F31.62 [facility] [address] [facility]] [id number] [address] [place] [phone] Mar, Bipolar I disorder, most rec ent episode (or current) mixed, moderate F31.62 [facility] [address] [facility]] [id number] [address] [place] [phone] Mar, [facility] [address] [facility]] [id number] [address] [place] [address] Mar, Bipolar I disorder, most rec ent episode (or current) mixed, moderate F31.62 [facility] [address] [facility]] [id number] [address] [place] [phone] Mar, Chronic pain G89.29 [facility] [address] [facility]] [id number] [address] [place] [phone] Mar, Bipolar I disorder, most rec ent episode (or current) mixed, moderate F31.62 [facility] [address] [id number] [address] [place] [phone] Mar, Bipolar I disorder, most rec ent episode (or current) mixed, moderate F31.62 [facility] [address] [id number] [address] [place] [address] Mar, Acute pain of left knee M25. 562 ; Left hip pain M25.552 ; Generalized edema R60.1 and Tongue swelling R22.0 [facility] [address] [id number] [address] [place] [phone] Mar, [facility] [address] [id number] [address] [place] [phone] Feb, Chronic pain G89.29 [facility] [address] [facility]] [id number] [address] [place] [id number] Feb, Diabetes E11.9 [facility] [address] [id number] [address] [place] [address] January, Chronic pain G89.29 [facility] [address] [id number] [address] [place] [phone] January, [facility] [address] [id number] [address] [place] [phone] January, Bipolar I disorder, most rec ent episode (or current) mixed, moderate F31.62 [facility] [address] [id number] [address] [place] [address] Dec, Bipolar I disorder, most rec ent episode (or current) mixed, moderate F31.62 [facility] [address] [facility]] [id number] [address] [place] [address] Dec, Chronic pain G89.29 [facility] [address] [id number] [address] [place] [phone] Dec, Bipolar I disorder, most rec ent episode (or current) mixed, moderate F31.62 [facility] [address] [id number] [address] [place] [address] Dec, Diabetes E11.9 ; Essential h ypertension I10 ; Chronic pain G89.29 and Morbid obesity E66.01 [facility] [address] [id number] [address] [place] [phone] Dec, [facility] [address] [id number] [address] [place] [phone] Dec, Bipolar I disorder, most rec ent episode (or current) mixed, moderate F31.62 [facility] [address] [facility]] [id number] [address] [place] [address] Dec, Bipolar I disorder, most rec ent episode (or current) mixed, moderate F31.62 [facility] [address] [facility]] [id number] [address] [place] [phone] Nov, Chronic pain G89.29 [facility] [address] [id number] [address] [place] [phone] Nov, Bipolar I disorder, most rec ent episode (or current) mixed, moderate F31.62 [facility] [address] [facility]] [id number] [address] [place] [phone] Nov, [facility] [address] [facility]] [id number] [address] [place] [phone] Nov, Bipolar I disorder, most rec ent episode (or current) mixed, moderate F31.62 [facility] [address] [id number] [address] [place] [phone] Nov, Bipolar I disorder, most rec ent episode (or current) mixed, moderate F31.62 [facility] [address] [facility]] [id number] [address] [place] [phone] Nov, [facility] [address] [facility]] [id number] [address] [place] [phone] Nov, [facility] [address] [facility]] [id number] [address] [place] [phone] Nov, [facility] [address] [facility]] [id number] [address] [place] [address] Oct, Chronic pain G89.29 [facility] [address] [facility]] [id number] [address] [place] [phone] Oct, Bipolar I disorder, most rec ent episode (or current) mixed, moderate F31.62 [facility] [address] [facility]] [id number] [address] [place] [phone] Oct, [facility] [address] [facility]] [id number] [address] [place] [phone] Oct, Chronic pain G89.29 ; Diabet es E11.9 ; Anxiety F41.9 and 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 [facility] [address] [facility]] [id number] [address] [place] [phone] Oct, [facility] [address] [facility]] [id number] [address] [place] [address] Oct, Diabetes E11.9 [facility] [address] [facility]] [id number] [address] [place] [phone] Oct, Bipolar I disorder, most rec ent episode (or current) mixed, moderate F31.62 [facility] [address] [facility]] [id number] [address] [place] [phone] Sep, Chronic pain G89.29 [facility] [address] [facility]] [id number] [address] [place] [phone] Sep, Chronic pain G89.29 [facility] [address] [facility]] [id number] [address] [place] [phone] Aug, Chronic pain G89.29 [facility] [address] [facility]] [id number] [address] [place] [phone] Jul, [facility] [address] [facility]] [id number] [address] [place] [address] Jul, Diabetes E11.9 [facility] [address] [facility]] [id number] [address] [place] [phone] Jul, Chronic pain G89.29 [place] [address] [facility]] [id number] [address] [place] [phone] Jul, Bipolar I disorder, most rec ent episode (or current) mixed, moderate F31.62 [place] [address] [facility]] [id number] [address] [place] [phone] Jun, Bipolar I disorder, most rec ent episode (or current) mixed, moderate F31.62 [place] [address] [facility]] [id number] [address] [place] [phone] Jun, [place] [address] [place] [id number] [address] [place] [id number] Jun, Bipolar I disorder, most rec ent episode (or current) mixed, moderate F31.62 [place] [address] [facility]] [id number] [address] [place] [address] May, Insomnia, unspecified type G 47.00 [place] [address] [facility]] [id number] [address] [place] [phone] May, Bipolar I disorder, most rec ent episode (or current) mixed, moderate F31.62 [place] [address] [facility]] [id number] [address] [place] [id number] 14 May, 2016 [facility] [address] [facility]] [id number] [address] [place] [phone] 08 May, 2016 Bipolar I disorder, most rec ent episode (or current) mixed, moderate F31.62 [place] [address] [facility]] [id number] [address] [place] [phone] 06 May, 2016 Diabetes E11.9 and Essential hypertension I10 [place] [address] [facility]] [id number] [address] [place] [id number] Apr, Chronic pain G89.29 [place] [address] [place] [id number] [address] [place] [phone] Apr, Bipolar I disorder, most rec ent episode (or current) mixed, moderate F31.62 [place] [address] [place] [id number] [address] [place] [phone] Apr, [place] [address] [place] [id number] [place] [address] Apr, [place] [address] [place] [id number] [place] [address] Mar, Chronic pain G89.29 ; Headac he, unspecified headache type R51 ; Neuropathy G62.9 ; Pain of right hip joint M25.551 and Essential hypertension I10 [place] [address] [place] [id number] [address] [place] [address] Mar, Chronic pain G89.29 [place] [address] [place] [id number] [address] [place] [id number] Mar, Bipolar I disorder, most rec ent episode (or current) mixed, moderate F31.62 [place] [address] [address] Feb, Bipolar I disorder, most rec ent episode (or current) mixed, moderate F31.62 and Insomnia, unspecified type G47.00 [place] [address] [place] [id number] [address] [place] [phone] Feb, Chronic pain G89.29 [place] [address] [place] [id number] [address] [place] [id number] Feb, Bipolar I disorder, most rec ent episode (or current) mixed, moderate F31.62 [place] [address] [place] [id number] [address] [place] [phone] January, Bipolar I disorder, most rec ent episode (or current) mixed, moderate F31.62 [place] [address] [place] [id number] [address] [place] [address] January, Chronic pain G89.29 [facility] [address] [facility]] [id number] [address] [place] [phone] January, Chronic pain G89.29 and Esse ntial hypertension I10 [facility] [address] [facility]] [id number] [address] [place] [phone] January, Bipolar I disorder, most rec ent episode (or current) mixed, moderate F31.62 [facility] [address] [facility]] [id number] [address] [place] [phone] Dec, [facility] [address] [facility]] [id number] [address] [place] [id number] Dec, [facility] [address] [facility]] [id number] [address] [place] [phone] Dec, [facility] [address] [place] [id number] [address] [place] [phone] Dec, [facility] [address] [place] [id number] [address] [place] [phone] Nov, Reactive airway disease J45. 909 [facility] [address] [place] [id number] [address] [place] [phone] Nov, [facility] [address] [facility]] [id number] [address] [place] [phone] Nov, [facility] [address] [place] [id number] [address] [place] [phone] Nov, [facility] [address] [facility]] [id number] [address] [place] [phone] Nov, [facility] [address] [place] [id number] [address] [place] [address] Nov, Onychomycosis B35.1 ; Hammer toe M20.40 ; Maddock or callus L84 and DM neuro manif type II E11.49 [facility] [address] [facility]] [id number] [address] [place] [phone] Nov, Chronic pain G89.29 ; Leukoc ytosis D72.829 and Diabetes E11.9 [place] [address] [address] Nov, [facility] [address] [place] [id number] [address] [place] [address] Oct, Bronchitis J40 [place] [address] [address] Oct, [place] [address] [address] Oct, [place] [address] [address] Oct, Mastoiditis, unspecified lat erality H70.90 and Type 2 diabetes mellitus with complication E11.8 [place] [address] [address] Sep, [place] [address] [address] Sep, Dysuria R30.0 ; Cough R05 ; Benign prostatic hyperplasia with lower urinary tract symptoms, unspecified morphology N40.1 ; Hypokalemia E87.6 and Eustachian tube dysfunction, unspecified laterality H69.80 [place] [address] [address] Sep, Moderate mixed bipolar I dis order F31.62 [place] [address] [place] [id number] [address] [place] [phone] Sep, Hypokalemia E87.6 [place] [address] [address] Sep, [place] [address] [address] Sep, Upper respiratory tract infe ction, unspecified type J06.9 [place] [address] [place] [address] Aug, [facility] [address] [id number] [address] [place] [phone] Aug, Dysuria R30.0 [facility] [address] [id number] [address] [place] [address] Aug, [facility] [address] [id number] [address] [place] [phone] Jul, [facility] [address] [id number] [address] [place] [phone] Jul, [facility] [address] [id number] [address] [place] [address] Jul, [facility] [address] [id number] [address] [place] [phone] Jul, [facility] [address] [id number] [address] [place] [phone] Jun, [facility] [address] [id number] [address] [place] [address] Jun, [facility] [address] [id number] [address] [place] [phone] Jun, [facility] [address] [facility]] [id number] [address] [place] [address] May, [facility] [address] [id number] [address] [place] [address] May, Bipolar I disorder, most rec ent episode (or current) mixed, moderate 296.62 [facility] [address] [id number] [address] [place] [phone] 16 May, 2015 [facility] [address] [facility]] [id number] [address] [place] [phone] 02 May, 2015 Bipolar I disorder, most rec ent episode (or current) mixed, moderate 296.62 and Major depressive disorder, recurrent episode, severe, specified as with psychotic behavior 296.34 [facility] [address] [id number] [address] [place] [phone] May, Bipolar I disorder, most rec ent episode (or current) mixed, moderate 296.62 [facility] [address] [facility]] [id number] [address] [place] [address] May, [facility] [address] [facility]] [id number] [address] [place] [address] Apr, [facility] [address] [facility]] [id number] [address] [place] [phone] Apr, [facility] [address] [facility]] [id number] [address] [place] [address] Apr, Unspecified disorder of kidn ey and ureter 593.9 and Diabetes mellitus type 2, uncontrolled 250.02 [facility] [address] [facility]] [id number] [address] [place] [id number] Apr, [facility] [address] [facility]] [id number] [address] [place] [address] Apr, [facility] [address] [facility]] [id number] [address] [place] [phone] Apr, [facility] [address] [facility]] [id number] [address] [place] [address] Apr, [facility] [address] [facility]] [id number] [address] [place] [address] Apr, Diabetes mellitus type II, u ncontrolled 250.02 [facility] [address] [id number] [address] [place] [address] Apr, [facility] [address] [facility]] [id number] [address] [place] [phone] Mar, [facility] [address] [facility]] [id number] [address] [place] [phone] Mar, [facility] [address] [facility]] [id number] [address] [place] [phone] Mar, [facility] [address] [place] [id number] [address] [place] [address] Mar, Major depressive disorder, r ecurrent episode, severe, specified as with psychotic behavior 296.34 and Bipolar I disorder, most recent episode (or current) mixed, moderate 296.62 [facility] [address] [place] [id number] [address] [place] [address] Mar, Diabetes 250.00 ; Anuria 788 .5 ; Nausea and vomiting 787.01 and Diarrhea 787.91 [facility] [address] [address] Mar, Diabetes 250.00 [facility] [address] [address] Mar, [facility] [address] [address] Mar, Diabetes 250.00 [facility] [address] [address] Mar, [facility] [address] [address] Mar, [facility] [address] [address] Mar, [facility] [address] [address] Mar, [facility] [address] [place] [id number] [address] [place] [id number] Mar, Bipolar I disorder, most rec ent episode (or current) mixed, moderate 296.62 and Major depressive disorder, recurrent episode, severe, specified as with psychotic behavior 296.34 [facility] [address] [place] [id number] [address] [place] [address] Mar, Magnesium deficiency 275.2 ; Hypokalemia 276.8 ; Nausea & vomiting 787.01 and Diabetes mellitus type 2, uncontrolled 250.02 [facility] [address] [address] Feb, [facility] [address] [address] Feb, Bipolar I disorder, most rec ent episode (or current) mixed, moderate 296.62 [facility] [address] [address] Feb, Nausea and vomiting 787.01 ; Left elbow pain 719.42 ; Anuria 788.5 and Diabetes 250.00 [place] [address] [address] Feb, [place] [address] [address] Feb, Hypopotassemia 276.8 and Hyp okalemia 276.8 [place] [address] [address] Feb, Hypopotassemia 276.8 and Hyp okalemia 276.8 [place] [address] [address] Feb, Seborrheic keratoses 702.19 [place] [address] [address] Feb, Hypopotassemia 276.8 and Low magnesium levels 275.2 [place] [address] [address] January, [facility] [address] [address] January, [place] [address] [address] January, [facility] [address] [address] January, Scalp lesion 709.9 [place] [address] [address] January, [facility] [address] [id number] [address] [place] [id number] Dec, Tear of medial cartilage or meniscus of knee, current 836.0 and 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 [facility] [address] [id number] [address] [place] [address], [place] [address] Dec, [facility] [address] [id number] [address] [place] [id number] Dec, [facility] [address] [id number] [address] [place] [address] Dec, Squamous cell carcinoma, 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 [facility] [address] [id number] [address] [place] [id number] 14 Dec, 2014 [facility] [address] [id number] [address] [place] [id number] Dec, [facility] [address] [id number] [address] [place] [phone] Nov, [facility] [address] [id number] [address] [place] [id number] Nov, [facility] [address] [id number] [address] [place] [phone] Nov, [facility] [address] [id number] [address] [place] [id number] Nov, [facility] [address] [id number] [address] [place] [phone] Nov, [facility] [address] [id number] [address] [place] [phone] Nov, [facility] [address] [id number] [address] [place] [id number] Nov, [facility] [address] [id number] [address] [place] [id number] Nov, [facility] [facility] [address] [id number] [address] [place] [address], [place] [address] Nov, 2014 [facility] [address] [id number] [address] [place] [address], [place] [address] Nov, [facility] [address] [id number] [address] [place] [address], [place] [address] Nov, 2014 [facility] [address] [id number] [address] [place] [address], [place] [address] Nov, 2014 [facility] [address] [id number] [address] [place] [address], [place] [address] Oct, 2014 [facility] [address] [id number] [address] [place] [address], [place] [address] Oct, 2014 [facility] [address] [id number] [address] [place] [address], [place] [address] Oct, 2014 [facility] [address] [id number] [address] [place] [address], [place] [address] Oct, 2014 [facility] [address] [id number] [address] [place] [address], [place] [address] Oct, 2014 [facility] [address] [id number] [address] [place] [address], [place] [address] Oct, 2014 [facility] [address] [id number] [address] [place] [address], [place] [address] Oct, 2014 [facility] [address] [id number] [address] [place] [address], [place] [address] Oct, [facility] [address] [id number] [address] [place] [address], [place] [address] Oct, [facility] [address] [id number] [address] [place] [address], [place] [address] Sep, [facility] [address] [id number] [address] [place] [address], [place] [address] Sep, [facility] [address] [id number] [address] [place] [address], [place] [address] Sep, [facility] [address] [id number] [address] [place] [address], [place] [address] Sep, [facility] [address] [id number] [address] [place] [address], [place] [address] Sep, [facility] [address] [id number] [address] [place] [address], [place] [address] Sep, [facility] [address] [id number] [address] [place] [address], [place] [address] Sep, [facility] [address] [id number] [address] [place] [address], [place] [address] Sep, [facility] [address] [id number] [address] [place] [address], [place] [address] Sep, [facility] [address] [id number] [address] [place] [address], [place] [address] Sep, [facility] [address] [id number] [address] [place] [address], [place] [address] Sep, [facility] [address] [id number] [address] [place] [address], [place] [address] Sep, [facility] [address] [id number] [address] [place] [address], [place] [address] Sep, [facility] [address] [id number] [address] [place] [address], [place] [address] Sep, [facility] [address] [id number] [address] [place] [address] Sep, [facility] [address] [id number] [address] [place] [address], [place] [address] Sep, [facility] [address] [id number] [address] [place] [address], [place] [address] Aug, [facility] [address] [id number] [address] [place] [address], [place] [address] Aug, [facility] [address] [id number] [facility] [place] [address] Aug, [facility] [address] [id number] [facility] [place] [address] Aug, [facility] [address] [id number] [facility] [place] [address] Aug, [facility] [address] [id number] [facility] [place] [address] Aug, [facility] [address] [id number] [facility] [place] [address] Aug, [facility] [address] [id number] [address] [place] [address], [place] [address] Aug, [facility] [address] [id number] [address] [place] [address], [place] [address] Aug, [facility] [address] [id number] [address] [place] [address], [place] [address] Aug, [facility] [address] [id number] [address] [place] [address], [place] [address] Aug, [facility] [address] [place] [id number] Aug, [facility] [address] [id number] [address] [place] [address], [place] [address] Aug, [facility] [address] [id number] [address] [place] [address], [place] [address] Aug, [facility] [address] [id number] [address] [place] [address], [place] [address] Aug, [facility] [address] [id number] [address] [place] [address], [place] [address] Aug, [facility] [address] [id number] [address] [place] [address], [place] [address] Aug, [facility] [address] [id number] [facility] [place] [address] Aug, [facility] [address] [id number] [address] [place] [address], [place] [address] 08 Aug, 2014 [facility] [address] [id number] [address] [place] [address], [place] [address] Aug, [facility] [address] [id number] [address] [place] [address], [place] [address] Aug, [facility] [address] [id number] [address] [place] [address], [place] [address] Aug, [facility] [address] [id number] [address] [place] [address], [place] [address] Aug, [facility] [address] [id number] [address] [place] [address], [place] [address] Aug, [facility] [address] [id number] [address] [place] [address], [place] [address] Aug, [facility] [address] [id number] [address] [place] [address], [place] [address] Aug, [facility] [address] [id number] [address] [place] [address], [place] [address] Aug, [facility] [address] [id number] [address] [place] [address], [place] [address] Aug, [facility] [address] [id number] [address] [place] [address], [place] [address] Aug, [facility] [address] [id number] [address] [place] [address], [place] [address] Aug, [facility] [address] [id number] [address] [place] [address], [place] [address] Jul, [facility] [address] [id number] [address] [place] [address], [place] [address] Jul, [facility] [address] [id number] [address] [place] [address], [place] [address] Jul, [facility] [address] [id number] [address] [place] [address], [place] [address] Jul, [facility] [address] [id number] [address] [place] [address], [place] [address] Jul, [facility] [address] [id number] [address] [place] [address], [place] [address] Jul, [facility] [address] [id number] [address] [place] [address], [place] [address] Jul, [facility] [address] [id number] [address] [place] [address], [place] [address] Jul, [facility] [address] [id number] [address] [place] [address], [place] [address] Jul, [facility] [address] [id number] [address] [place] [address], [place] [address] Jul, [facility] [address] [id number] [address] [place] [address], [place] [address] Jun, [facility] [address] [id number] [address] [place] [address], [place] [address] Jun, [facility] [address] [id number] [address] [place] [address], [place] [address] Jun, [facility] [address] [id number] [address] [place] [address] Jun, [facility] [address] [id number] [address] [place] [address], [place] [address] Jun, [facility] [address] [id number] [address] [place] [address] Jun, [facility] [address] [id number] [address] [place] [address], [place] [address] Jun, [facility] [address] [id number] [address] [place] [address], [place] [address] Jun, [facility] [address] [id number] [address] [place] [address], [place] [address] Jun, [facility] [address] [id number] [address] [place] [address], [place] [address] Jun, 2013 [facility] [address] [id number] [address] [place] [address], [place] [address] 29 Sep, 2013 [facility] [address] [id number] [address] [place] [address], [place] [address] 29 Sep, 2013 [facility] [address] [id number] [address] [place] [address], [place] [address] 26 Sep, 2013 [facility] [address] [id number] [address] [place] [address], [place] [address] 26 Sep, 2013 [facility] [address] [id number] [address] [place] [address], [place] [address] 17 Sep, 2013 [facility] [address] [id number] [address] [place] [address], [place] [address] 17 Sep, 2013 [facility] [address] [id number] [address] [place] [address], [place] [address] 15 Sep, 2013 [facility] [address] [id number] [address] [place] [address], [place] [address] 15 Sep, 2013 [facility] [address] [id number] [address] [place] [address], [place] [address] 15 Sep, 2013 [facility] [address] [id number] [address] [place] [address], [place] [address] 15 Sep, 2013 [facility] [address] [id number] [address] [place] [address], [place] [address] 10 Sep, 2013 [facility] [address] [id number] [address] [place] [address], [place] [address] 10 Sep, 2013 [facility] [address] [id number] [address] [place] [address], [place] [address] 09 Sep, 2013 [facility] [address] [id number] [address] [place] [address], [place] [address] 09 Sep, 2013 [facility] [address] [id number] [address] [place] [address], [place] [address] 04 Sep, 2013 [facility] [address] [id number] [facility] [place] [address] May, [facility] [address] [id number] [facility] [place] [address] Apr, [facility] [address] [id number] [facility] [place] [address] Apr, [facility] [address] [id number] [address] [place] [address], [place] [address] Apr, [facility] [address] [id number] [address] [place] [address], [place] [address] Apr, [facility] [address] [id number] [address] [place] [address], [place] [address] Apr, [facility] [address] [id number] [address] [place] [address], [place] [address] Apr, [facility] [address] [id number] [address] [place] [address], [place] [address] Apr, [facility] [address] [id number] [address] [place] [address], [place] [address] Apr, [facility] [address] [id number] [address] [place] [address], [place] [address] Apr, [facility] [address] [id number] [address] [place] [address], [place] [address] Apr, [facility] [address] [id number] [address] [place] [address], [place] [address] Apr, [facility] [address] [id number] [address] [place] [address], [place] [address] Apr, [facility] [address] [id number] [address] [place] [address], [place] [address] Apr, [facility] [address] [id number] [address] [place] [address], [place] [address] Apr, [facility] [address] [id number] [address] [place] [address], [place] [address] Apr, [facility] [address] [id number] [facility] [place] [address] Mar, [facility] [address] [id number] [address] [place] [address], [place] [address] Mar, [facility] [address] [id number] [address] [place] [address], [place] [address] Mar, [facility] [address] [id number] [address] [place] [address], [place] [address] Mar, [facility] [address] [id number] [address] [place] [address], [place] [address] Mar, [facility] [address] [id number] [address] [place] [address], [place] [address] Mar, [facility] [address] [id number] [address] [place] [address], [place] [address] Mar, [facility] [address] [id number] [address] [place] [address], [place] [address] Mar, [facility] [address] [id number] [address] [place] [address], [place] [address] Mar, [facility] [address] [id number] [address] [place] [address], [place] [address] Mar, [facility] [address] [id number] [address] [place] [address], [place] [address] Mar, [facility] [address] [id number] [address] [place] [address], [place] [address] Mar, [facility] [address] [id number] [address] [place] [address], [place] [address] Mar, [facility] [address] [id number] [address] [place] [address], [place] [address] Mar, [facility] [address] [id number] [address] [place] [address], [place] [address] Mar, 2013 [facility] [address] [id number] [facility] [place] [address] Mar, [facility] [address] [id number] [facility] [place] [address] Mar, [facility] [address] [id number] [facility] [place] [address] Mar, [facility] [address] [id number] [address] [place] [address], [place] [address] Feb, [facility] [address] [id number] [address] [place] [address], [place] [address] Feb, [facility] [address] [id number] [address] [place] [address], [place] [address] Feb, [facility] [address] [id number] [address] [place] [address], [place] [address] Feb, [facility] [address] [id number] [address] [place] [address], [place] [address] Feb, [facility] [address] [id number] [address] [place] [address], [place] [address] Feb, [facility] [address] [id number] [address] [place] [address], [place] [address] Feb, [facility] [address] [id number] [address] [place] [address], [place] [address] Feb, [facility] [address] [id number] [address] [place] [address], [place] [address] Feb, [facility] [address] [id number] [address] [place] [address], [place] [address] Feb, [facility] [address] [id number] [address] [place] [address], [place] [address] Feb, [facility] [address] [id number] [address] [place] [address], [place] [address] Feb, [facility] [address] [id number] [address] [place] [address], [place] [address] Feb, [facility] [address] [id number] [address] [place] [address], [place] [address] Feb, [facility] [address] [id number] [address] [place] [address], [place] [address] January, [facility] [address] [id number] [address] [place] [address], [place] [address] January, [facility] [address] [id number] [address] [place] [address], [place] [address] January, [facility] [address] [id number] [address] [place] [address], [place] [address] January, [facility] [address] [id number] [address] [place] [address], [place] [address] January, [facility] [address] [id number] [address] [place] [address], [place] [address] January, [facility] [address] [id number] [address] [place] [address], [place] [address] January, [facility] [address] [id number] [address] [place] [address], [place] [address] January, [facility] [address] [id number] [address] [place] [address], [place] [address] January, [facility] [address] [id number] [address] [place] [address], [place] [address] January, [facility] [address] [id number] [address] [place] [address], [place] [address] January, [facility] [address] [id number] [address] [place] [address], [place] [address] January, [facility] [address] [id number] [address] [place] [address], [place] [address] January, [facility] [address] [id number] [address] [place] [address], [place] [address] January, [facility] [address] [id number] [address] [place] [address], [place] [address] Dec, [facility] [address] [id number] [facility] [place] [address] Dec, [facility] [address] [id number] [address] [place] [address], [place] [address] Dec, [facility] [address] [id number] [address] [place] [address], [place] [address] Dec, [facility] [address] [id number] [address] [place] [address], [place] [address] Dec, [facility] [address] [id number] [address] [place] [address], [place] [address] Dec, [facility] [address] [id number] [address] [place] [address], [place] [address] Dec, [facility] [address] [id number] [address] [place] [address], [place] [address] Dec, [facility] [address] [id number] [address] [place] [address], [place] [address] Dec, [facility] [address] [id number] [address] [place] [address], [place] [address] Dec, [facility] [address] [id number] [address] [place] [address], [place] [address] Nov, [facility] [address] [id number] [address] [place] [address], [place] [address] Nov, [facility] [address] [id number] [address] [place] [address], [place] [address] Nov, [facility] [address] [id number] [address] [place] [address], [place] [address] Nov, [facility] [address] [id number] [address] [place] [address], [place] [address] Nov, [facility] [address] [id number] [address] [place] [address], [place] [address] Nov, [facility] [address] [id number] [facility] [place] [address] 05 Nov, 2013 [facility] [address] [id number] [address] [place] [address], [place] [address] Nov, [facility] [address] [id number] [address] [place] [address], [place] [address] Nov, [facility] [address] [id number] [address] [place] [address], [place] [address] Nov, [facility] [address] [id number] [address] [place] [address], [place] [address] Oct, [facility] [address] [id number] [address] [place] [address], [place] [id number] Oct, [facility] [address] [id number] [address] [place] [address], [place] [address] Oct, [facility] [address] [id number] [address] [place] [address], [place] [address] Oct, [facility] [address] [id number] [address] [place] [address], [place] [address] Oct, [facility] [address] [id number] [address] [place] [address], [place] [address] Oct, [facility] [address] [id number] [address] [place] [address], [place] [address] Oct, [facility] [address] [id number] [address] [place] [address], [place] [address] Oct, [facility] [address] [id number] [address] [place] [address], [place] [address] Oct, [facility] [address] [id number] [address] [place] [address], [place] [address] Oct, [facility] [address] [id number] [address] [place] [address], [place] [address] Oct, [facility] [address] [id number] [address] [place] [address], [place] [id number] 04 Oct, 2013 [facility] [address] [id number] [address] [place] [address], [place] [address] Oct, [facility] [address] [id number] [address] [place] [address], [place] [address] Oct, [facility] [address] [id number] [address] [place] [address], [place] [address] Sep, [facility] [address] [id number] [address] [place] [address], [place] [address] Sep, [facility] [address] [id number] [address] [place] [address], [place] [address] Sep, [facility] [address] [id number] [address] [place] [address], [place] [address] Sep, [facility] [address] [id number] [address] [place] [address], [place] [address] Sep, [facility] [address] [id number] [address] [place] [address], [place] [address] Sep, [facility] [address] [id number] [address] [place] [address], [place] [address] Sep, [facility] [address] [id number] [address] [place] [address], [place] [address] Sep, [facility] [address] [id number] [address] [place] [address], [place] [address] Sep, [facility] [address] [id number] [address] [place] [address], [place] [address] Sep, [facility] [address] [id number] [address] [place] [address], [place] [address] Aug, [facility] [address] [id number] [address] [place] [address], [place] [address] Aug, [facility] [address] [id number] [address] [place] [address], [place] [address] Jul, [facility] [address] [id number] [address] [place] [address], [place] [address] Jul, [facility] [address] [id number] [address] [place] [address], [place] [address] Jul, [facility] [address] [id number] [address] [place] [address], [place] [address] Jul, [facility] [address] [id number] [address] [place] [address], [place] [address] Jul, [facility] [address] [id number] [address] [place] [address], [place] [address] Jul, [facility] [address] [id number] [address] [place] [address], [place] [address] Jul, [facility] [address] [id number] [address] [place] [address], [place] [address] Jul, [facility] [address] [id number] [address] [place] [address], [place] [address] Jul, [facility] [address] [id number] [address] [place] [address], [place] [address] Jul, [facility] [address] [id number] [address] [place] [address], [place] [address] Jul, [facility] [address] [id number] [address] [place] [address], [place] [address] Jul, [facility] [address] [id number] [address] [place] [address], [place] [address] Jul, [facility] [address] [id number] [address] [place] [address], [place] [address] Jul, [facility] [address] [id number] [address] [place] [address], [place] [address] Jul, [facility] [address] [id number] [address] [place] [address], [place] [address] Jul, [facility] [address] [id number] [address] [place] [address], [place] [address] Jul, [facility] [address] [id number] [address] [place] [address], [place] [address] Jul, [facility] [address] [id number] [address] [place] [address], [place] [address] Jul, [facility] [address] [id number] [address] [place] [address], [place] [address] Jun, 2012 [facility] [address] [id number] [address] [place] [id number] Jun, 2012 [facility] [address] [id number] [address] [place] [address], [place] [address] Jun, 2012 [facility] [address] [id number] [address] [place] [address], [place] [address] Jun, 2012 [facility] [address] [id number] [address] [place] [address], [place] [address] Jun, [facility] [address] [id number] [address] [place] [id number] Jun, [facility] [address] [id number] [address] [place] [id number] Jun, [facility] [address] [id number] [address] [place] [id number] Jun, [facility] [address] [id number] [address] [place] [id number] Jun, [facility] [address] [id number] [address] [place] [id number] Jun, [facility] [address] [id number] [address] [place] [address], [place] [address] Jun, [facility] [address] [id number] [address] [place] [id number] May, [facility] [address] [id number] [address] [place] [address], [place] [address] 25 May, 2013 [facility] [address] [id number] [address] [place] [address], [place] [address] 19 May, 2012 [facility] [address] [id number] [address] [place] [address], [place] [address] 17 May, 2012 [facility] [address] [id number] [address] [place] [address], [place] [address] 11 May, 2012 [facility] [address] [id number] [address] [place] [address], [place] [address] 10 May, 2012 [facility] [address] [id number] [address] [place] [address], [place] [address] 09 May, 2013 [facility] [address] [id number] [address] [place] [address], [place] [address] 05 May, 2013 [facility] [address] [id number] [address] [place] [address], [place] [address] Apr, [facility] [address] [id number] [address] [place] [address], [place] [address] Apr, [facility] [address] [id number] [address] [place] [address], [place] [address] Apr, [facility] [address] [id number] [address] [place] [address], [place] [address] Apr, [facility] [address] [id number] [address] [place] [address], [place] [address] Apr, [facility] [address] [id number] [address] [place] [address], [place] [address] Mar, [facility] [address] [id number] [address] [place] [address], [place] [address] Mar, [facility] [address] [id number] [address] [place] [address], [place] [address] Mar, [facility] [address] [id number] [address] [place] [address], [place] [address] Mar, [facility] [address] [id number] [address] [place] [address], [place] [address] Mar, [facility] [address] [id number] [address] [place] [address], [place] [address] Mar, [facility] [address] [id number] [address] [place] [address], [place] [address] Mar, [facility] [address] [id number] [address] [place] [address], [place] [address] Mar, [facility] [address] [id number] [address] [place] [address], [place] [address] Feb, [facility] [address] [id number] [address] [place] [address], [place] [address] Feb, [facility] [address] [id number] [address] [place] [address], [place] [address] January, [facility] [address] [id number] [address] [place] [address], [place] [address] January, [facility] [address] [id number] [address] [place] [address], [place] [address] Dec, [facility] [address] [id number] [address] [place] [address], [place] [address] Dec, [facility] [address] [id number] [address] [place] [address], [place] [address] Nov, [facility] [address] [id number] [address] [place] [address], [place] [address] Nov, [facility] [address] [id number] [address] [place] [address], [place] [address] Nov, [facility] [address] [id number] [address] [place] [address], [place] [address] Nov, [facility] [address] [id number] [address] [place] [address], [place] [address] Oct, [facility] [address] [id number] [address] [place] [address], [place] [address] Oct, [facility] [address] [id number] [address] [place] [address], [place] [address] 26 Oct, 2012 [facility] [address] [id number] [address] [place] [address], [place] [address] 26 Oct, 2012 [facility] [address] [id number] [address] [place] [address], [place] [address] 16 Oct, 2012 [facility] [address] [id number] [address] [place] [address], [place] [address] 14 Oct, 2012 [facility] [address] [id number] [address] [place] [address], [place] [address] 08 Oct, 2012 [facility] [address] [id number] [address] [place] [address], [place] [address] 07 Oct, 2012 [facility] [address] [id number] [address] [place] [address], [place] [address] 03 Oct, 2012 [facility] [address] [id number] [address] [place] [address], [place] [address] 30 Sep, 2012 [facility] [address] [id number] [address] [place] [address], [place] [address] Sep, [facility] [address] [id number] [address] [place] [address], [place] [address] Sep, [facility] [address] [id number] [address] [place] [address], [place] [address] Sep, [facility] [address] [id number] [address] [place] [address], [place] [address] Sep, [facility] [address] [id number] [address] [place] [address], [place] [address] Sep, [facility] [address] [id number] [address] [place] [address], [place] [address] 09 Sep, 2012 [facility] [address] [id number] [address] [place] [address], [place] [address] 08 Sep, 2012 [facility] [address] [id number] [address] [place] [address], [place] [address] Aug, [facility] [address] [id number] [address] [place] [address], [place] [address] Aug, [facility] [address] [id number] [address] [place] [address], [place] [address] Aug, [facility] [address] [id number] [address] [place] [address], [place] [address] Aug, [facility] [address] [id number] [address] [place] [address], [place] [address] Aug, [facility] [address] [id number] [address] [place] [address], [place] [address] Aug, [facility] [address] [id number] [address] [place] [address], [place] [address] Aug, [facility] [address] [id number] [address] [place] [address], [place] [address] Aug, [facility] [address] [id number] [address] [place] [address], [place] [address] Jul, [facility] [address] [id number] [address] [place] [address], [place] [address] Jul, [facility] [address] [id number] [address] [place] [address], [place] [address] Jul, [facility] [address] [id number] [address] [place] [address], [place] [address] Jul, [facility] [address] [id number] [address] [place] [address], [place] [address] Jul, [facility] [address] [id number] [address] [place] [address], [place] [address] Jul, [facility] [address] [id number] [address] [place] [address], [place] [address] Jun, [facility] [address] [id number] [address] [place] [address], [place] [address] Jun, [facility] [address] [id number] [address] [place] [address] [place] [id number] 23 Jun, 2012 [facility] [address] [id number] [address] [place] [address], [place] [address] 23 Jun, 2012 [facility] [address] [id number] [address] [place] [address], [place] [address] 22 Jun, 2012 [facility] [address] [id number] [address] [place] [address], [place] [address] 19 Jun, 2012 [facility] [address] [id number] [address] [place] [address], [place] [address] 19 Jun, 2012 [facility] [address] [id number] [address] [place] [address], [place] [address] 10 Jun, 2012 [facility] [address] [id number] [address] [place] [address], [place] [address] 10 Jun, 2012 [facility] [address] [id number] [address] [place] [address], [place] [address] 26 May, 2012 [facility] [address] [id number] [address] [place] [address], [place] [address] 24 May, 2012 [facility] [address] [id number] [address] [place] [address], [place] [address] 18 May, 2012 [facility] [address] [id number] [address] [place] [address], [place] [address] 30 Apr, 2012 [facility] [address] [id number] [address] [place] [address], [place] [address] 29 Apr, 2012 [facility] [address] [id number] [address] [place] [address], [place] [id number] 18 Apr, 2012 [facility] [address] [id number] [address] [place] [address], [place] [id number] 14 Apr, 2012 [facility] [address] [id number] [address] [place] [address], [place] [address] 10 Apr, 2012 [facility] [address] [id number] [address] [place] [address], [place] [id number] 07 Apr, 2012 [facility] [address] [id number] [address] [place] [address], [place] [address] Mar, [facility] [address] [id number] [address] [place] [address], [place] [address] Mar, [facility] [address] [id number] [address] [place] [address], [place] [id number] Mar, [facility] [address] [id number] [address] [place] [address], [place] [address] Mar, [facility] [address] [id number] [address] [place] [address], [place] [address] Feb, [facility] [address] [id number] [address] [place] [address], [place] [address] Feb, [facility] [address] [id number] [address] [place] [address], [place] [address] Feb, [facility] [address] [id number] [address] [place] [address], [place] [id number] Feb, [facility] [address] [id number] [address] [place] [address], [place] [id number] Feb, [facility] [address] [id number] [address] [place] [address], [place] [address] January, [facility] [address] [id number] [address] [place] [address], [place] [address] January, [facility] [address] [id number] [address] [place] [address], [place] [address] January, [facility] [address] [id number] [address] [place] [address], [place] [address] January, [facility] [address] [id number] [address] [place] [address], [place] [address] January, [facility] [address] [id number] [address] [place] [address], [place] [address] January, [facility] [address] [id number] [address] [place] [address], [place] [address] Dec, 2011 [facility] [address] [id number] [address] [place] [address], [place] [address] 24 Dec, 2011 [facility] [address] [id number] [address] [place] [address], [place] [address] 17 Dec, 2011 [facility] [address] [id number] [address] [place] [address], [place] [address] 09 Dec, 2011 [facility] [address] [id number] [address] [place] [address], [place] [id number] 06 Dec, 2011 [facility] [address] [id number] [address] [place] [address], [place] [address] 27 Nov, 2011 [facility] [address] [id number] [address] [place] [address], [place] [address] 14 Nov, 2011 [facility] [address] [id number] [address] [place] [address], [place] [address] Nov, [facility] [address] [id number] [address] [place] [address], [place] [id number] 07 Nov, 2011 [facility] [address] [id number] [address] [place] [address], [place] [address] 29 Oct, 2011 [facility] [address] [id number] [address] [place] [address], [place] [address] 28 Oct, 2011 [facility] [address] [id number] [address] [place] [address], [place] [address] 24 Oct, 2011 [facility] [address] [id number] [address] [place] [address], [place] [address] 13 Oct, 2011 [facility] [address] [id number] [address] [place] [address], [place] [address] 08 Oct, 2011 [facility] [address] [id number] [address] [place] [address], [place] [address] 31 Sep, 2011 [facility] [address] [id number] [address] [place] [address], [place] [id number] 30 Sep, 2011 [facility] [address] [id number] [address] [place] [address], [place] [address] Sep, [facility] [address] [id number] [address] [place] [address], [place] [address] Sep, [facility] [address] [id number] [address] [place] [address], [place] [id number] Sep, [facility] [address] [id number] [address] [place] [address], [place] [address] Sep, [facility] [address] [id number] [address] [place] [address], [place] [address] Aug, [facility] [address] [id number] [address] [place] [address], [place] [address] Aug, [facility] [address] [id number] [address] [place] [address], [place] [address] Aug, [facility] [address] [id number] [address] [place] [address], [place] [address] Jul, [facility] [address] [id number] [address] [place] [address], [place] [address] Jul, [facility] [address] [id number] [address] [place] [address], [place] [address] Jul, [facility] [address] [id number] [address] [place] [address], [place] [address] Jul, [facility] [address] [id number] [address] [place] [address], [place] [address] Jun, [facility] [address] [id number] [address] [place] [address], [place] [id number] Jun, [facility] [address] [id number] [address] [place] [address], [place] [address] Jun, [facility] [address] [id number] [address] [place] [address], [place] [id number] Jun, [facility] [address] [id number] [address] [place] [address], [place] [id number] Jun, [facility] [address] [id number] [address] [place] [address], [place] [id number] 10 Jun, 2011 [facility] [address] [id number] [address] [place] [address], [place] [id number] 11 Mar, 2011 [facility] [address] [id number] [address] [place] [address], [place] [id number] 18 Dec, 2010 [facility] [address] [id number] [address] [place] [address], [place] [id number] 11 Dec, 2010 [facility] [address] [id number] [address] [place] [address], [place] [id number] 18 Nov, 2010 [facility] [address] [id number] [address] [place] [address], [place] [id number] 16 Nov, 2010 [facility] [address] [id number] [address] [place] [address], [place] [id number] 10 Sep, 2010 [facility] [address] [id number] [address] [place] [address], [place] [id number] 31 Aug, 2010 [facility] [address] [id number] [address] [place] [address], [place] [id number] 29 Aug, 2010 [facility] [address] [id number] [address] [place] [address], [place] [id number] 29 Aug, 2010 [facility] [address] [id number] [address] [place] [address], [place] [id number] 29 Aug, 2010 [facility] [address] [id number] [address] [place] [address], [place] [id number] 27 Aug, 2010 [facility] [address] [id number] [address] [place] [address], [place] [id number] 14 Aug, 2010 [facility] [address] [id number] [address] [place] [address], [place] [id number] 08 Aug, 2010 [facility] [address] [id number] [address] [place] [address], [place] [id number] 08 Aug, 2010 [facility] [address] [id number] [address] [place] [address], [place] [id number] 07 Aug, 2010 [facility] [address] [id number] [address] [place] [address], [place] [id number] 06 Aug, 2010 [facility] [address] [id number] [address] [place] [address], [place] [address] Aug, [facility] [address] [id number] [address] [place] [address], [place] [id number] Aug, [facility] [address] [id number] [address] [place] [address], [place] [address] Jul, [facility] [address] [id number] [address] [place] [address], [place] [id number] Jul, [facility] [address] [id number] [address] [place] [address], [place] [id number] Jul, [facility] [address] [id number] [address] [place] [address], [place] [address] Jul, [facility] [address] [id number] [address] [place] [address], [place] [address] Jul, [facility] [address] [id number] [address] [place] [address], [place] [address] Jul, [facility] [address] [id number] [address] [place] [address], [place] [id number] 24 Jun, 2010 [facility] [address] [id number] [address] [place] [address], [place] [address] Jun, [facility] [address] [id number] [address] [place] [address], [place] [address] Jun, [facility] [address] [id number] [address] [place] [address], [place] [id number] Jun, [facility] [address] [id number] [address] [place] [address], [place] [address] Apr, [facility] [address] [id number] [address] [place] [address], [place] [address] Mar, [facility] [address] [id number] [address] [place] [address], [place] [id number] 17 Feb, 2010 [facility] [address] [id number] [address] [place] [address], [place] [address] January, [facility] [address] [id number] [address] [place] [address], [place] [id number] 15 Dec, 2009 [facility] [address] [id number] [address] [place] [address], [place] [address] Nov, [facility] [address] [id number] [address] [place] [address], [place] [id number] Aug, [facility] [address] [id number] [address] [place] [address], [place] [address] Aug, [facility] [address] [id number] [address] [place] [address], [place] [address] Aug, [facility] [address] [id number] [address] [place] [address], [place] [address] Jul, [facility] [address] [id number] [address] [place] [address], [place] [address] Jul, [facility] [address] [id number] [address] [place] [address], [place] [id number] Jul, [facility] [address] [id number] [address] [place] [address], [place] [id number] 30 Jun, 2009 [facility] [address] [id number] [address] [place] [address], [place] [phone] 29 Jun, 2009 [facility] [address] [id number] [address] [place] [address], [place] [phone] Jun, [facility] [address] [id number] [address] [place] [address], [place] [id number] 22 Jun, 2009 [facility] [address] [id number] [address] [place] [id number] 12 Jun, 2009 [facility] [address] [id number] [address] [place] [phone] Jun, [facility] [address] [facility]] [id number] [address] [place] [id number] Apr, [facility] [address] [facility]] [id number] [address] [place] [phone] Apr, [facility] [address] [facility]] [id number] [address] [place] [phone] Feb, [facility] [address] [facility]] [id number] [address] [place] [phone] January, [facility] [address] [facility]] [id number] [address] [place] [phone] Dec, IMMUNIZATIONS No Known Immunizations SOCIAL HISTORY Never Assessed REASON FOR VISIT PLAN OF CARE VITAL SIGNS MEDICATIONS Unknown Medications RESULTS No Results PROCEDURES Procedure Date Ordered Result Body Site PSYTX PT&/FAMILY 45 MINUTES Aug 11, 2014 INSTRUCTIONS MEDICATIONS ADMINISTERED No Known Medications [...] inability to urinate 09/16/15 Hospitalization History [facility] mental health e[facility] rly 1999' Hospitalization History hyperkalemia 10/2017 Hospitalization History fluid in lung
--- OUTSIDE RECORDS SUMMARY | 2020-03-01 18:14 | XMS REPORT ---
Author Author Michele Lazaro Organization [facility] Address Unknown Care Team Providers Care Emergency Medical Service Manager Name Role Phone ALYSE Lazaro Unavailable PROBLEMS Type Condition ICD9-CM Code QOS68-PK Code Onset Dates Condition S tatus SNOMED Code Problem Cough R05 Active 45666158 Problem Benign prostatic hyperplasia with lower urinary tract symptoms, unspecified morphology N40.1 Active 73441 6007 Problem Eustachian tube dysfunction, unspecified laterality H69.80 Active 27169019 Problem Chronic pain G89.29 Active 3662391 1 Problem DM neuro manif type II E11.49 Active 04045432 Problem Diabetes E11.9 Active 43337093 Problem Leukocytosis D72.829 Active 7102823 06 Problem Falling R29.6 Active 357237552 Problem Pressure ulcer of other site, stage 3 L89.893 Active 074447250 Problem 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 Active 157947617 Problem Eye exam abnormal R93.8 Active 16 8658659 Problem Dysuria R30.0 Active 26131689 Problem Hypokalemia E87.6 Active 91558528 Problem Morbid obesity E66.01 Active 03580 6002 Problem Anxiety F41.9 Active 58921807 Problem Diabetic polyneuropathy associated with type 2 d iabetes mellitus E11.42 Active 44173133 Problem Essential hypertension I10 Active 99492067 Problem Bilateral primary osteoarthritis of knee M17.0 Active 162117862 Problem Polyneuropathy associated with underlying disease G63 Active 190546647 Problem Anemia of chronic illness D63.8 Acti ve 709754552 Problem Lymphocytosis D72.820 Active 458999 09 Problem Retinal edema H35.81 Active 031875 6 Problem Chronic lymphocytic leukemia C91.10 A ctive 31154831 Problem Bipolar disorder, in partial remission, most rec ent episode depressed F31.75 Active 80107901 Problem Pure hypercholesterolemia E78.00 Acti ve 228551095 Problem Primary osteoarthritis of right knee M17.11 Active 071734130445101 Problem Bipolar disorder F31.9 Active 137 37146 Problem Bipolar I disorder, most recent episode (or curr ent) mixed, moderate F31.62 Active 73170289 Problem Chronic diastolic (congestive) heart failure I50.3 2 Active 606510309 Problem Reactive airway disease J45.909 Active 118772066576 Problem Insomnia, unspecified type G47.00 Act sharon 062259701 Problem Other chronic pain G89.29 Active 8 7807769 Problem Other iron deficiency anemia D50.8 A ctive 54998459 Problem Mild cognitive impairment G31.84 Acti ve 112537159 Problem Skin cancer C44.90 Active 02762519 7 ALLERGIES No Information ENCOUNTERS Encounter Location Date Diagnosis [place] [address] [address] Apr, [place] [address] [address] Apr, Chronic pain G89.29 and Bipo lar disorder F31.9 [place] [address] [address] [place] [id number] [place] [address] Mar, Bipolar disorder F31.9 and C hronic pain G89.29 [place] [address] [address] [place] [id number] [place] [phone] Feb, Bipolar disorder F31.9 [place] [address] [address] [place] [id number] [place] [address] Feb, Cellulitis of right upper ex tremity L03.113 and Skin abrasion T14.8XXA [place] [address] [address] [facility] [id number] [address] [place] [phone] Feb, Bipolar disorder, in partial remission, most recent episode depressed F31.75 and Mild cognitive impairment G31.84 [place] [address] [address] [facility] [id number] [address] [place] [phone] 13 Feb, 2019 Chronic pain G89.29 [place] [address] [address] [facility] [id number] [address] [place] [phone] Feb, Bipolar disorder, in partial remission, most recent episode depressed F31.75 and Mild cognitive impairment G31.84 [facility] [address] [id number] [address] [place] [phone] January, Bipolar disorder, in partial remission, most recent episode depressed F31.75 and Mild cognitive impairment G31.84 [facility] [address] [id number] [address] [place] [phone] January, Chronic pain G89.29 and Bipo lar disorder F31.9 [facility] [address] [id number] [address] [place] [phone] January, Bipolar disorder, in partial remission, most recent episode depressed F31.75 and Mild cognitive impairment G31.84 [facility] [address] [id number] [address] [place] [phone] Dec, [facility] [address] [id number] [address] [place] [phone] Dec, Chronic pain G89.29 and Bipo lar disorder F31.9 [facility] [address] [id number] [address] [place] [phone] Dec, Edema of both lower extremit ies R60.0 [facility] [address] [id number] [address] [place] [phone] Dec, Bipolar disorder F31.9 [facility] [address] [id number] [address] [place] [phone] Dec, Bipolar disorder, in partial remission, most recent episode depressed F31.75 and Mild cognitive impairment G31.84 [facility] [address] [id number] [address] [place] [phone] Nov, [facility] [address] [id number] [address] [place] [phone] Nov, Chronic pain G89.29 [facility] [address] [id number] [address] [place] [phone] Nov, Bipolar disorder, in partial remission, most recent episode depressed F31.75 and Mild cognitive impairment G31.84 [place] [address] [address] [place] [id number] [place] [phone] Nov, Bipolar disorder F31.9 [place] [address] [address] [place] [id number] [place] [phone] 04 Nov, 2018 [facility] ; Polyneuropathy associated [...] morphology N40.1 and Essential hypertension I10 [address] [address] Oct, Chronic pain G89.[address] [address] Oct, Diabetes E11.9 [place] [address] [address] Oct, Bipolar I disorder, most rec ent episode (or current) mixed, moderate F31.62 and Mild cognitive impairment G31.84 [place] [address] [address] [place] [id number] [place] [phone] Oct, Bipolar I disorder, most rec ent episode (or current) mixed, moderate F31.62 and Mild cognitive impairment G31.84 [place] [address] [address] [place] [id number] [place] [phone] Sep, Bipolar I disorder, most rec ent episode (or current) mixed, moderate F31.62 and Mild cognitive impairment G31.84 [place] [id number] [place] [phone] Sep, [facility] [address] [facility] [id number] [address] [place] [phone] Sep, Diabetes E11.9 ; Hypoxia R09 .02 ; Hyperglycemia R73.9 ; Therapeutic drug monitoring Z51.81 ; BMI 50.0-59.9, adult Z68.43 and Skin cancer C44.90 [place] [address] [address] [facility] [id number] [address] [place] [phone] Sep, Chronic pain G89.29 [place] [address] [id number] [address] [place] [phone] Sep, Bipolar I disorder, most rec ent episode (or current) mixed, moderate F31.62 [place] [address] [address] [facility] [id number] [address] [place] [phone] Sep, [place] [address] [address] [facility] [id number] [address] [place] [phone] Sep, [facility] [address] [facility] [id number] [address] [place] [phone] Aug, Chronic pain G89.29 [place] [address] [facility] [id number] [address] [place] [phone] Aug, Bipolar I disorder, most rec ent episode (or current) mixed, moderate F31.62 [facility] [address] [facility] [id number] [address] [place] [phone] Aug, Bipolar I disorder, most rec ent episode (or current) mixed, moderate F31.62 and Mild cognitive impairment G31.84 [place] [address] [facility] [id number] [address] [place] [phone] Jul, [facility] [address] [facility] [id number] [address] [place] [phone] Jul, Chronic pain G89.29 [facility] [address] [facility] [id number] [address] [place] [phone] Jul, Bipolar I disorder, most rec ent episode (or current) mixed, moderate F31.62 and Mild cognitive impairment G31.84 [place] [address] [id number] [address] [place] [phone] Jul, Bipolar I disorder, most rec ent episode (or current) mixed, moderate F31.62 and MCI (mild cognitive impairment) G31.84 [place] [address] [id number] [address] [place] [phone] Jul, [place] [address] [address] [facility] [id number] [address] [place] [phone] Jul, [place] [address] [address] [facility] [id number] [address] [place] [phone] Jul, Bipolar I disorder, most rec ent episode (or current) mixed, moderate F31.62 [place] [address] [address] [facility] [id number] [address] [place] [phone] Jul, Chronic pain G89.29 [place] [address] [address] [facility] [id number] [address] [place] [phone] Jun, Bipolar I disorder, most rec ent episode (or current) mixed, moderate F31.62 [place] [address] [address] [facility] [id number] [address] [place] [phone] Jun, Pre-procedure lab exam Z01.8 12 [place] [address] [address] [facility] [id number] [address] [place] [phone] Jun, [facility] [address] [id number] [place] [id number] Jun, [place] [address] [address] [facility] [id number] [address] [place] [phone] Jun, [place] [address] [address] [place] [id number] [place] [phone] Jun, Forgetfulness R68.89 ; Pre-s yncope R55 ; Localized edema R60.0 ; Other iron deficiency anemia D50.8 and BMI 50.0-59.9, adult Z68.43 [place] [address] [address] [facility] [id number] [address] [place] [phone] Jun, Chronic pain G89.29 [facility] [address] [place] [id number] [place] [phone] 05 Jun, 2018 Chronic pain G89.29 [facility] [address] [place] [id number] [place] [phone] Jun, Bipolar I disorder, most rec ent episode (or current) mixed, moderate F31.62 [place] [address] [address] [place] [id number] [place] [phone] May, Chronic pain G89.29 [place] [address] [address] [place] [id number] [place] [phone] Apr, [place] [address] [address] Apr, Chronic pain G89.29 [place] [address] [address] Apr, Primary osteoarthritis of ri t knee M17.11 [place] [address] [address] [place] [id number] [place] [phone] Mar, [place] [address] [address] [place] [id number] [place] [address] Mar, BMI 50.0-59.9, adult Z68.43 and Bipolar disorder, in partial remission, most recent episode depressed F31.75 [place] [address] [address] [place] [id number] [place] [phone] Mar, Diabetes E11.9 ; Pure hyperc holesterolemia E78.00 ; Essential hypertension I10 ; Nausea with vomiting, unspecified R11.2 and Headache, unspecified headache type R51 [place] [address] [address] [place] [id number] [place] [phone] Mar, Bipolar I disorder, most rec ent episode (or current) mixed, moderate F31.62 [place] [address] [address] [place] [id number] [place] [phone] Mar, Bipolar I disorder, most rec ent episode (or current) mixed, moderate F31.62 [facility] [address] [facility] [id number] [address] [place] [address] Mar, Chronic pain G89.29 [facility] [address] [facility] [id number] [address] [place] [phone] Mar, Bipolar I disorder, most rec ent episode (or current) mixed, moderate F31.62 [place] [address] [address] [facility] [id number] [address] [place] [phone] Feb, Bipolar I disorder, most rec ent episode (or current) mixed, moderate F31.62 [place] [address] [address] [facility] [id number] [address] [place] [phone] Feb, Chronic pain G89.29 [place] [address] [address] [facility] [id number] [address] [place] [address] Feb, Decubitus ulcer of right josselin t, stage 3 L89.893 and BMI 50.0-59.9, adult Z68.43 [place] [address] [address] [facility] [id number] [address] [place] [phone] Feb, Bipolar I disorder, most rec ent episode (or current) mixed, moderate F31.62 [place] [address] [address] [facility] [id number] [address] [place] [phone] Feb, [facility] [address] [facility] [id number] [address] [place] [phone] January, [facility] [address] [facility] [id number] [address] [place] [phone] January, Chronic pain G89.29 [facility] [address] [facility] [id number] [address] [place] [phone] January, Bipolar I disorder, most rec ent episode (or current) mixed, moderate F31.62 [place] [address] [address] January, Bipolar I disorder, most rec ent episode (or current) mixed, moderate F31.62 [place] [address] [address] Dec, Bipolar I disorder, most rec ent episode (or current) mixed, moderate F31.62 and BMI 50.0-59.9, adult Z68.43 [place] [address] [address] Dec, Bipolar I disorder, most rec ent episode (or current) mixed, moderate F31.62 [place] [address] [address] Dec, Chronic pain G89.29 [place] [address] [address] Dec, DM neuro manif type II E11.4 9 ; Right flank pain R10.9 ; 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 ; Encounter for medication monitoring Z51.81 and BMI 50.0-59.9, adult Z68.43 [place] [address] [address] Dec, Bipolar I disorder, most rec ent episode (or current) mixed, moderate F31.62 [place] [address] [address] [place] [id number] [place] [phone] Nov, Bipolar I disorder, most rec ent episode (or current) mixed, moderate F31.62 [place] [address] [place] [id number] [place] [address] Nov, Chronic pain G89.29 [place] [address] [place] [id number] [place] [address] Nov, Bipolar I disorder, most rec ent episode (or current) mixed, moderate F31.62 [place] [address] [address] Nov, Hypokalemia E87.6 [facility] [address] [place] [id number] [place] [phone] Nov, Bipolar I disorder, most rec ent episode (or current) mixed, moderate F31.62 [facility] [address] [place] [id number] [place] [address] Oct, Chronic pain G89.29 [place] [address] [address] Oct, BMI 50.0-59.9, adult Z68.43 and Bipolar I disorder, most recent episode (or current) mixed, moderate F31.62 [place] [address] [place] [id number] [place] [address] Oct, Bipolar I disorder, most rec ent episode (or current) mixed, moderate F31.62 [place] [address] [address] Oct, [place] [address] [address] Oct, Hypokalemia E87.6 [place] [address] [place] [id number] [place] [address] Oct, DM neuro manif type II E11.4 9 [place] [address] [place] [id number] [place] [phone] Oct, Bipolar I disorder, most rec ent episode (or current) mixed, moderate F31.62 [place] [address] [place] [id number] [place] [address] Oct, Bipolar I disorder, most rec ent episode (or current) mixed, moderate F31.62 [facility] [address] [place] [id number] [place] [address] 14 Oct, 2017 Hyperkalemia E87.5 ; Falling R29.6 ; BMI 50.0-59.9, adult Z68.43 and Acute left ankle pain M25.572 [place] [address] [place] [address] 08 Oct, 2017 DM neuro manif type II E11.4 9 [place] [address] [place] [id number] [place] [address] Oct, [place] [address] [place] [id number] [place] [address] Sep, Chronic pain G89.29 [place] [address] [address] Sep, [place] [address] [address] Sep, Bilateral primary osteoarthr itis of knee M17.0 [place] [address] [address] Sep, Generalized edema R60.1 [place] [address] [address] 16 Sep, 2017 Bipolar I disorder, most rec ent episode (or current) mixed, moderate F31.62 [place] [address] [address] 15 Sep, 2017 Hypoxia R09.02 ; Other hyper volemia E87.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 ; Anemia of chronic illness D63.8 and BMI 50.0- 59.9, adult Z68.43 [place] [address] [place] [address] Sep, [address] [address] Sep, Bipolar I disorder, most rec ent episode (or current) mixed, moderate F31.62 [place] [address] [address] Aug, Chronic pain G89.29 [facility] [address] [facility] [id number] [address] [place] [address] Aug, Generalized edema R60.1 [facility] [address] [id number] [address] [place] [address] Aug, [facility] [address] [facility] [id number] [address] [place] [address] Aug, [facility] [address] [facility] [id number] [address] [place] [address] 14 Aug, 2017 Bipolar I disorder, most rec ent episode (or current) mixed, moderate F31.62 [facility] [address] [facility] [id number] [address] [place] [phone] Aug, Bipolar I disorder, most rec ent episode (or current) mixed, moderate F31.62 [facility] [address] [facility] [id number] [address] [place] [phone] 04 Aug, 2017 Chronic pain G89.29 [facility] [address] [facility] [id number] [address] [place] [phone] 30 Jul, 2017 Bipolar I disorder, most rec ent episode (or current) mixed, moderate F31.62 [facility] [address] [facility] [id number] [address] [place] [address] Jul, Bipolar I disorder, most rec ent episode (or current) mixed, moderate F31.62 and BMI 60.0-69.9, adult Z68.44 [facility] [address] [facility] [id number] [address] [place] [address] 16 Jul, 2017 Bipolar I disorder, most rec ent episode (or current) mixed, moderate F31.62 [facility] [address] [facility] [id number] [address] [place] [phone] 06 Jul, 2017 Chronic pain G89.29 [facility] [address] [facility] [id number] [address] [place] [phone] 02 Jul, 2017 Bipolar I disorder, most rec ent episode (or current) mixed, moderate F31.62 [facility] [address] [facility] [id number] [address] [place] [phone] 18 Jun, 2017 Polyneuropathy associated wi th underlying disease G63 and Diabetes E11.9 [facility] [address] [id number] [address] [place] [id number] 16 Jun, 2017 Bipolar I disorder, most rec ent episode (or current) mixed, moderate F31.62 [facility] [address] [facility] [id number] [address] [place] [address] Jun, Chronic pain G89.29 [facility] [address] [facility] [id number] [address] [place] [address] May, Bipolar I disorder, most rec ent episode (or current) mixed, moderate F31.62 [facility] [address] [facility] [id number] [address] [place] [address] May, Bipolar I disorder, most rec ent episode (or current) mixed, moderate F31.62 [facility] [address] [facility] [id number] [address] [place] [phone] 20 May, 2017 Diabetic polyneuropathy asso ciated with type 2 diabetes mellitus E11.42 [facility] [address] [facility] [id number] [address] [place] [phone] 18 May, 2017 Bipolar I disorder, most rec ent episode (or current) mixed, moderate F31.62 [facility] [address] [facility] [id number] [address] [place] [phone] May, Bipolar I disorder, most rec ent episode (or current) mixed, moderate F31.62 [facility] [address] [facility] [id number] [address] [place] [address] May, Chronic pain G89.29 [facility] [address] [facility] [id number] [address] [place] [address] Apr, Bipolar I disorder, most rec ent episode (or current) mixed, moderate F31.62 [facility] [address] [id number] [address] [place] [address] Apr, [facility] [address] [id number] [address] [place] [address] Apr, Chronic pain G89.29 and DM n euro manif type II E11.49 [facility] [address] [facility] [id number] [address] [place] [phone] Apr, [facility] [address] [facility] [id number] [address] [place] [phone] Apr, Bipolar I disorder, most rec ent episode (or current) mixed, moderate F31.62 [facility] [address] [facility] [id number] [address] [place] [id number] Apr, Chronic pain G89.29 [facility] [address] [facility] [id number] [address] [place] [id number] Apr, Iliotibial band syndrome, le ft M76.32 [facility] [address] [facility] [id number] [address] [place] [id number] Apr, Bipolar I disorder, most rec ent episode (or current) mixed, moderate F31.62 [facility] [address] [facility] [id number] [address] [place] [id number] Mar, Bipolar I disorder, most rec ent episode (or current) mixed, moderate F31.62 [facility] [address] [place] [id number] [address] [place] [id number] Mar, Bipolar I disorder, most rec ent episode (or current) mixed, moderate F31.62 [facility] [address] [facility] [id number] [address] [place] [phone] Mar, [facility] [address] [facility] [id number] [address] [place] [phone] Mar, Bipolar I disorder, most rec ent episode (or current) mixed, moderate F31.62 [facility] [address] [id number] [address] [place] [phone] Mar, Chronic pain G89.29 [facility] [address] [id number] [address] [place] [phone] Mar, Bipolar I disorder, most rec ent episode (or current) mixed, moderate F31.62 [facility] [address] [id number] [address] [place] [phone] Mar, Bipolar I disorder, most rec ent episode (or current) mixed, moderate F31.62 [facility] [address] [facility] [id number] [address] [place] [phone] Mar, Acute pain of left knee M25. 562 ; Left hip pain M25.552 ; Generalized edema R60.1 and Tongue swelling R22.0 [facility] [address] [id number] [address] [place] [phone] Mar, [facility] [address] [facility] [id number] [address] [place] [phone] Feb, Chronic pain G89.29 [facility] [address] [id number] [address] [place] [phone] Feb, Diabetes E11.9 [facility] [address] [facility] [id number] [address] [place] [phone] January, Chronic pain G89.29 [facility] [address] [facility] [id number] [address] [place] [phone] January, [facility] [address] [facility] [id number] [address] [place] [phone] January, Bipolar I disorder, most rec ent episode (or current) mixed, moderate F31.62 [facility] [address] [facility] [id number] [address] [place] [phone] Dec, Bipolar I disorder, most rec ent episode (or current) mixed, moderate F31.62 [facility] [address] [facility] [id number] [address] [place] [phone] Dec, Chronic pain G89.29 [facility] [address] [id number] [address] [place] [phone] Dec, Bipolar I disorder, most rec ent episode (or current) mixed, moderate F31.62 [facility] [id number] [address] [place] [phone] Dec, Diabetes E11.9 ; Essential h ypertension I10 ; Chronic pain G89.29 and Morbid obesity E66.01 [facility] [address] [facility] [id number] [address] [place] [phone] Dec, [facility] [address] [facility] [id number] [address] [place] [phone] Dec, Bipolar I disorder, most rec ent episode (or current) mixed, moderate F31.62 [place] [id number] [address] [place] [phone] Dec, Bipolar I disorder, most rec ent episode (or current) mixed, moderate F31.62 [place] [address] [id number] [place] [phone] Nov, Chronic pain G89.29 [facility] [address] [facility] [id number] [address] [place] [phone] Nov, Bipolar I disorder, most rec ent episode (or current) mixed, moderate F31.62 [facility] [id number] [address] [place] [phone] Nov, [facility] [address] [facility] [id number] [address] [place] [phone] Nov, Bipolar I disorder, most rec ent episode (or current) mixed, moderate F31.62 [place] [id number] [address] [place] [phone] Nov, Bipolar I disorder, most rec ent episode (or current) mixed, moderate F31.62 [facility] [id number] [address] [place] [phone] Nov, [facility] [id number] [address] [place] [phone] Nov, [facility] [address] [facility] [id number] [address] [place] [phone] Nov, [facility] [address] [facility] [id number] [address] [place] [phone] Oct, Chronic pain G89.29 [facility] [address] [facility] [id number] [address] [place] [phone] Oct, Bipolar I disorder, most rec ent episode (or current) mixed, moderate F31.62 [facility] [address] [facility] [id number] [address] [place] [phone] Oct, [facility] [address] [facility] [id number] [address] [place] [phone] Oct, Chronic pain G89.29 ; Diabet es E11.9 ; Anxiety F41.9 and 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 [facility] [address] [facility] [id number] [address] [place] [phone] Oct, [facility] [address] [facility] [id number] [address] [place] [phone] Oct, Diabetes E11.9 [facility] [address] [facility] [id number] [address] [place] [phone] Oct, Bipolar I disorder, most rec ent episode (or current) mixed, moderate F31.62 [facility] [address] [facility] [id number] [address] [place] [phone] Sep, Chronic pain G89.29 [facility] [address] [facility] [id number] [address] [place] [phone] Sep, Chronic pain G89.29 [facility] [address] [facility] [id number] [address] [place] [phone] Aug, Chronic pain G89.29 [facility] [address] [facility] [id number] [address] [place] [phone] Jul, [facility] [address] [facility] [id number] [address] [place] [phone] Jul, Diabetes E11.9 [facility] [address] [facility] [id number] [address] [place] [phone] Jul, Chronic pain G89.29 [facility] [address] [facility] [id number] [address] [place] [phone] Jul, Bipolar I disorder, most rec ent episode (or current) mixed, moderate F31.62 [facility] [address] [facility] [id number] [address] [place] [phone] Jun, Bipolar I disorder, most rec ent episode (or current) mixed, moderate F31.62 [place] [id number] [place] [phone] Jun, [facility] [address] [facility] [id number] [address] [place] [phone] Jun, Bipolar I disorder, most rec ent episode (or current) mixed, moderate F31.62 [place] [address] [facility] [id number] [address] [place] [phone] 30 May, 2016 Insomnia, unspecified type G 47.00 [facility] [address] [facility] [id number] [address] [place] [phone] May, Bipolar I disorder, most rec ent episode (or current) mixed, moderate F31.62 [facility] [address] [facility] [id number] [address] [place] [phone] 14 May, 2016 [facility] [address] [facility] [id number] [address] [place] [id number] 08 May, 2016 Bipolar I disorder, most rec ent episode (or current) mixed, moderate F31.62 [facility] [address] [facility] [id number] [address] [place] [phone] 06 May, 2016 Diabetes E11.9 and Essential hypertension I10 [facility] [address] [facility] [id number] [address] [place] [phone] Apr, Chronic pain G89.29 [facility] [address] [facility] [id number] [address] [place] [phone] Apr, Bipolar I disorder, most rec ent episode (or current) mixed, moderate F31.62 [facility] [address] [facility] [id number] [address] [place] [phone] Apr, [facility] [id number] [address] [place] [phone] Apr, [facility] [address] [facility] [id number] [address] [place] [id number] Mar, Chronic pain G89.29 ; Headac he, unspecified headache type R51 ; Neuropathy G62.9 ; Pain of right hip joint M25.551 and Essential hypertension I10 [place] [id number] [place] [phone] Mar, Chronic pain G89.29 [place] [address] [facility] [id number] [address] [place] [phone] Mar, Bipolar I disorder, most rec ent episode (or current) mixed, moderate F31.62 [place] [id number] [place] [phone] Feb, Bipolar I disorder, most rec ent episode (or current) mixed, moderate F31.62 and Insomnia, unspecified type G47.00 [place] [address] [facility] [id number] [address] [place] [phone] Feb, Chronic pain G89.29 [place] [address] [facility] [id number] [address] [place] [phone] Feb, Bipolar I disorder, most rec ent episode (or current) mixed, moderate F31.62 [place] [address] [facility] [id number] [address] [place] [phone] January, Bipolar I disorder, most rec ent episode (or current) mixed, moderate F31.62 [facility] [address] [id number] [address] [place] [phone] January, Chronic pain G89.29 [facility] [address] [facility] [id number] [address] [place] [phone] January, Chronic pain G89.29 and Esse ntial hypertension I10 [facility] [address] [facility] [id number] [address] [place] [phone] January, Bipolar I disorder, most rec ent episode (or current) mixed, moderate F31.62 [facility] [address] [id number] [address] [place] [phone] Dec, [facility] [address] [facility] [id number] [address] [place] [phone] Dec, [facility] [address] [facility] [id number] [address] [place] [phone] Dec, [facility] [address] [facility] [id number] [address] [place] [phone] Dec, [facility] [address] [facility] [id number] [address] [place] [phone] Nov, Reactive airway disease J45. 909 [facility] [address] [facility] [id number] [address] [place] [phone] Nov, [facility] [address] [facility] [id number] [address] [place] [phone] Nov, [facility] [address] [facility] [id number] [address] [place] [phone] Nov, [facility] [address] [facility] [id number] [address] [place] [phone] Nov, [facility] [address] [facility] [id number] [address] [place] [phone] Nov, Onychomycosis B35.1 ; Hammer toe M20.40 ; Milnor or callus L84 and DM neuro manif type II E11.49 [place] [address] [place] [address] [id number] [address] [place] [address] Nov, Chronic pain G89.29 ; Leukoc ytosis D72.829 and Diabetes E11.9 [place] [address] [address] [id number] [place] [phone] Nov, [place] [address] [address] Oct, Bronchitis J40 [place] [address] [phone] Oct, [place] [address] [id number] Oct, [place] [address] [address] Oct, Mastoiditis, unspecified lat erality H70.90 and Type 2 diabetes mellitus with complication E11.8 [place] [address] [address] Sep, [place] [address] [address] Sep, Dysuria R30.0 ; Cough R05 ; Benign prostatic hyperplasia with lower urinary tract symptoms, unspecified morphology N40.1 ; Hypokalemia E87.6 and Eustachian tube dysfunction, unspecified laterality H69.80 [place] [address] [address] Sep, Moderate mixed bipolar I dis order F31.62 [place] [address] [address] Sep, Hypokalemia E87.6 [place] [address] [address] Sep, [place] [address] [address] Sep, Upper respiratory tract infe ction, unspecified type J06.9 [facility] [address] [id number] [address] [place] [phone] Aug, [facility] [address] [id number] [address] [place] [phone] Aug, Dysuria R30.0 [facility] [address] [id number] [address] [place] [phone] Aug, [facility] [address] [id number] [address] [place] [phone] Jul, [facility] [address] [id number] [address] [place] [phone] Jul, [facility] [address] [id number] [address] [place] [phone] Jul, [facility] [address] [id number] [address] [place] [phone] Jul, [facility] [address] [id number] [address] [place] [phone] Jun, [facility] [address] [id number] [address] [place] [phone] Jun, [facility] [address] [id number] [address] [place] [phone] Jun, [facility] [address] [id number] [address] [place] [phone] May, [facility] [address] [id number] [address] [place] [phone] May, Bipolar I disorder, most rec ent episode (or current) mixed, moderate 296.62 [facility] [address] [id number] [address] [place] [phone] 16 May, 2015 [facility] [address] [id number] [address] [place] [phone] May, Bipolar I disorder, most rec ent episode (or current) mixed, moderate 296.62 and Major depressive disorder, recurrent episode, severe, specified as with psychotic behavior 296.34 [facility] [address] [facility] [id number] [address] [place] [phone] May, Bipolar I disorder, most rec ent episode (or current) mixed, moderate 296.62 [facility] [address] [facility] [id number] [address] [place] [phone] May, [facility] [address] [facility] [id number] [address] [place] [phone] Apr, [facility] [address] [id number] [address] [place] [phone] Apr, [facility] [id number] [place] [phone] Apr, Unspecified disorder of kidn ey and ureter 593.9 and Diabetes mellitus type 2, uncontrolled 250.02 [facility] [address] [facility] [id number] [address] [place] [phone] Apr, [facility] [address] [facility] [id number] [address] [place] [phone] Apr, [facility] [id number] [place] [phone] Apr, [facility] [address] [facility] [id number] [address] [place] [phone] Apr, [facility] [address] [facility] [id number] [address] [place] [phone] Apr, Diabetes mellitus type II, u ncontrolled 250.02 [facility] [address] [id number] [address] [place] [phone] Apr, [facility] [address] [facility] [id number] [address] [place] [phone] Mar, [facility] [address] [facility] [id number] [address] [place] [phone] Mar, [facility] [address] [address] [id number] [address] [place] [address] Mar, [facility] [id number] [address] [place] [phone] Mar, Major depressive disorder, r ecurrent episode, severe, specified as with psychotic behavior 296.34 and Bipolar I disorder, most recent episode (or current) mixed, moderate 296.62 [facility] [id number] [place] [address] Mar, Diabetes 250.00 ; Anuria 788 .5 ; Nausea and vomiting 787.01 and Diarrhea 787.91 [facility] [id number] [place] [phone] Mar, Diabetes 250.00 [facility] [address] [place] [address] [id number] [address] [place] [phone] Mar, [facility] [address] [id number] [place] [address] Mar, Diabetes 250.00 [facility] [address] [address] [id number] [place] [phone] Mar, [facility] [address] [place] [address] [id number] [place] [phone] Mar, [facility] [address] [address] [id number] [place] [phone] Mar, [facility] [address] [place] [address] [id number] [place] [phone] Mar, [facility] [address] [place] [address] [id number] [place] [address] Mar, Bipolar I disorder, most rec ent episode (or current) mixed, moderate 296.62 and Major depressive disorder, recurrent episode, severe, specified as with psychotic behavior 296.34 [facility] [address] [place] [address] [id number] [address] [place] [address] Mar, Magnesium deficiency 275.2 ; Hypokalemia 276.8 ; Nausea & vomiting 787.01 and Diabetes mellitus type 2, uncontrolled 250.02 [facility] [address] [address] Feb, [place] [address] [address] Feb, Bipolar I disorder, most rec ent episode (or current) mixed, moderate 296.62 [place] [address] [address] Feb, Nausea and vomiting 787.01 ; Left elbow pain 719.42 ; Anuria 788.5 and Diabetes 250.00 [place] [address] [address] Feb, [place] [address] [address] Feb, Hypopotassemia 276.8 and Hyp okalemia 276.8 [place] [address] [address] Feb, Hypopotassemia 276.8 and Hyp okalemia 276.8 [place] [address] [address] Feb, Seborrheic keratoses 702.19 [place] [address] [address] Feb, Hypopotassemia 276.8 and Low magnesium levels 275.2 [place] [address] [address] January, [facility] [address] [address] January, [facility] [address] [address] January, [facility] [address] [address] January, Scalp lesion 709.9 [facility] [address] [id number] [address] [place] [phone] January, [facility] [address] [id number] [address] [place] [phone] Dec, Tear of medial cartilage or meniscus of knee, current 836.0 and 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 [facility] [address] [id number] [address] [place] [phone] Dec, [facility] [address] [id number] [address] [place] [phone] Dec, 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 [address] [id number] [address] [place] [phone] Dec, [facility] [address] [id number] [address] [place] [phone] Nov, [facility] [address] [id number] [address] [place] [phone] Nov, [facility] [address] [id number] [address] [place] [phone] Nov, [facility] [address] [id number] [address] [place] [phone] Nov, [facility] [address] [id number] [address] [place] [phone] Nov, [facility] [address] [id number] [address] [place] [phone] Nov, [facility] [address] [id number] [address] [place] [id number] Nov, [facility] [address] [id number] [address] [place] [id number] 04 Nov, 2014 [facility] [address] [id number] [address] [place] [address], [place] [address] Nov, 2014 [facility] [address] [id number] [address] [place] [address], [place] [address] Nov, [facility] [address] [id number] [address] [place] [address], [place] [address] Nov, 2014 [facility] [address] [id number] [address] [place] [address], [place] [address] Nov, [facility] [address] [id number] [address] [place] [address], [place] [address] Oct, 2014 [facility] [address] [id number] [address] [place] [address], [place] [address] Oct, 2014 [facility] [address] [id number] [address] [place] [address], [place] [address] Oct, 2014 [facility] [address] [id number] [address] [place] [address], [place] [address] Oct, 2014 [facility] [address] [id number] [address] [place] [address], [place] [address] Oct, 2014 [facility] [address] [id number] [address] [place] [address], [place] [address] Oct, 2014 [facility] [address] [id number] [address] [place] [address], [place] [address] Oct, 2014 [facility] [address] [id number] [address] [place] [address], [place] [address] Oct, 2014 [facility] [address] [id number] [address] [place] [address], [place] [address] Oct, 2014 [facility] [address] [id number] [address] [place] [address], [place] [address] Sep, [facility] [address] [id number] [address] [place] [address], [place] [address] Sep, [facility] [address] [id number] [address] [place] [address], [place] [address] Sep, [facility] [address] [id number] [address] [place] [address], [place] [address] Sep, [facility] [address] [id number] [address] [place] [address], [place] [address] Sep, [facility] [address] [id number] [address] [place] [address], [place] [address] Sep, [facility] [address] [id number] [address] [place] [address], [place] [address] Sep, [facility] [address] [id number] [address] [place] [address], [place] [address] Sep, [facility] [address] [address] [id number] [address] [place] [address], [place] [address] Sep, [facility] [address] [id number] [address] [place] [address], [place] [address] Sep, [facility] [address] [id number] [address] [place] [address], [place] [address] Sep, [facility] [address] [id number] [address] [place] [address], [place] [address] Sep, [facility] [address] [id number] [address] [place] [address], [place] [address] Sep, [facility] [address] [id number] [address] [place] [address], [place] [address] Sep, [facility] [address] [id number] [address] [place] [address], [place] [address] Sep, [facility] [address] [id number] [address] [place] [address], [place] [address] Sep, [facility] [address] [id number] [address] [place] [address], [place] [address] Aug, [facility] [address] [id number] [address] [place] [address] [place] [address] Aug, [facility] [address] [id number] [facility] [place] [address] Aug, [facility] [address] [id number] [address] [place] [address], [place] [address] Aug, [facility] [address] [id number] [facility] [place] [address] Aug, [facility] [address] [id number] [address] [place] [address], [place] [address] Aug, [facility] [address] [id number] [address] [place] [address], [place] [address] Aug, [facility] [address] [id number] [address] [place] [address], [place] [address] Aug, [facility] [address] [id number] [address] [place] [address], [place] [address] Aug, [facility] [address] [id number] [address] [place] [address], [place] [address] Aug, [facility] [address] [id number] [address] [place] [address], [place] [address] Aug, [facility] [address] [place] [id number] Aug, [facility] [address] [id number] [address] [place] [address], [place] [address] Aug, [facility] [address] [id number] [address] [place] [address], [place] [address] Aug, [facility] [address] [id number] [address] [place] [address], [place] [address] Aug, [facility] [address] [id number] [address] [place] [address], [place] [address] Aug, [facility] [address] [id number] [facility] [place] [address] Aug, [facility] [address] [id number] [address] [place] [address], [place] [address] Aug, [facility] [address] [id number] [address] [place] [address], [place] [address] Aug, [facility] [address] [id number] [address] [place] [address], [place] [address] Aug, [facility] [address] [id number] [address] [place] [address], [place] [address] Aug, [facility] [address] [id number] [address] [place] [address], [place] [address] Aug, [facility] [address] [id number] [address] [place] [address], [place] [address] Aug, [facility] [address] [id number] [address] [place] [address], [place] [address] Aug, [facility] [address] [id number] [address] [place] [address], [place] [address] Aug, [facility] [address] [id number] [address] [place] [address], [place] [address] Aug, [facility] [address] [id number] [address] [place] [address], [place] [address] Aug, [facility] [address] [id number] [address] [place] [address], [place] [address] Aug, [facility] [address] [id number] [address] [place] [address], [place] [address] Aug, [facility] [address] [id number] [address] [place] [address], [place] [address] Aug, [facility] [address] [id number] [address] [place] [address], [place] [address] Jul, [facility] [address] [id number] [address] [place] [address], [place] [address] Jul, [facility] [address] [id number] [address] [place] [address], [place] [address] Jul, [facility] [address] [id number] [address] [place] [address], [place] [address] Jul, [facility] [address] [id number] [address] [place] [address], [place] [address] Jul, [facility] [address] [id number] [address] [place] [address], [place] [address] Jul, [facility] [address] [id number] [address] [place] [address], [place] [address] Jul, [facility] [address] [id number] [address] [place] [address], [place] [address] Jul, [facility] [address] [id number] [address] [place] [address], [place] [address] Jul, [facility] [address] [id number] [address] [place] [address], [place] [address] Jul, [facility] [address] [id number] [address] [place] [address], [place] [address] Jun, [facility] [address] [id number] [address] [place] [address], [place] [address] Jun, [facility] [address] [id number] [address] [place] [address] Jun, [facility] [address] [id number] [address] [place] [address] Jun, [facility] [address] [id number] [address] [place] [address] Jun, [facility] [address] [id number] [address] [place] [address], [place] [address] Jun, [facility] [address] [id number] [address] [place] [address], [place] [address] Jun, [facility] [address] [id number] [address] [place] [address] Jun, [facility] [address] [id number] [address] [place] [address] Jun, [facility] [address] [id number] [address] [place] [address], [place] [address] Jun, [facility] [address] [id number] [address] [place] [address], [place] [address] 29 Sep, 2013 [facility] [address] [id number] [address] [place] [address], [place] [address] 29 Sep, 2013 [facility] [address] [id number] [address] [place] [address], [place] [address] 26 Sep, 2013 [facility] [address] [id number] [address] [place] [address], [place] [address] 26 Sep, 2013 [facility] [address] [id number] [address] [place] [address], [place] [address] 17 May, 2013 [facility] [address] [id number] [address] [place] [address], [place] [address] 17 May, 2013 [facility] [address] [id number] [address] [place] [address], [place] [address] 15 May, 2013 [facility] [address] [id number] [address] [place] [address], [place] [address] 15 May, 2013 [facility] [address] [id number] [address] [place] [address], [place] [address] 15 Sep, 2013 [facility] [address] [id number] [address] [place] [address], [place] [address] 15 May, 2013 [facility] [address] [id number] [address] [place] [address], [place] [address] 10 Sep, 2013 [facility] [address] [id number] [address] [place] [address], [place] [address] 10 May, 2013 [facility] [address] [id number] [address] [place] [address], [place] [address] 09 Sep, 2013 [facility] [address] [id number] [address] [place] [address], [place] [address] 09 Sep, 2013 [facility] [address] [id number] [facility] [place] [address] May, [facility] [address] [id number] [facility] [place] [address] May, [facility] [address] [id number] [facility] [place] [address] Apr, [facility] [address] [id number] [facility] [place] [address] Apr, [facility] [address] [id number] [facility] [place] [address] Apr, [facility] [address] [id number] [address] [place] [address], [place] [address] Apr, [facility] [address] [id number] [address] [place] [address], [place] [address] Apr, [facility] [address] [id number] [address] [place] [address], [place] [address] Apr, [facility] [address] [id number] [address] [place] [address], [place] [address] Apr, [facility] [address] [id number] [address] [place] [address], [place] [address] Apr, [facility] [address] [id number] [address] [place] [address], [place] [address] Apr, [facility] [address] [id number] [address] [place] [address], [place] [address] Apr, [facility] [address] [id number] [address] [place] [address], [place] [address] Apr, [facility] [address] [id number] [address] [place] [address], [place] [address] Apr, [facility] [address] [id number] [address] [place] [address], [place] [address] Apr, [facility] [address] [id number] [address] [place] [address], [place] [address] Apr, [facility] [address] [id number] [facility] [place] [address] Apr, [facility] [address] [id number] [address] [place] [address], [place] [address] Mar, [facility] [address] [id number] [address] [place] [address], [place] [address] Mar, [facility] [address] [id number] [address] [place] [address], [place] [address] Mar, [facility] [address] [id number] [address] [place] [address], [place] [address] Mar, [facility] [address] [id number] [address] [place] [address], [place] [address] Mar, [facility] [address] [id number] [address] [place] [address], [place] [address] Mar, [facility] [address] [id number] [address] [place] [address], [place] [address] Mar, [facility] [address] [id number] [address] [place] [address], [place] [address] Mar, [facility] [address] [id number] [address] [place] [address], [place] [address] Mar, [facility] [address] [id number] [address] [place] [address], [place] [address] Mar, [facility] [address] [id number] [address] [place] [address], [place] [address] Mar, [facility] [address] [id number] [address] [place] [address], [place] [address] Mar, [facility] [address] [id number] [address] [place] [address], [place] [address] Mar, [facility] [address] [id number] [address] [place] [address], [place] [address] Mar, [facility] [address] [id number] [facility] [place] [address] Mar, [facility] [address] [id number] [address] [place] [address], [place] [address] Mar, [facility] [address] [id number] [facility] [place] [address] Mar, [facility] [address] [id number] [address] [place] [address], [place] [address] Mar, [facility] [address] [id number] [address] [place] [address], [place] [address] Feb, [facility] [address] [id number] [address] [place] [address], [place] [address] Feb, [facility] [address] [id number] [address] [place] [address], [place] [address] Feb, [facility] [address] [id number] [address] [place] [address], [place] [address] Feb, [facility] [address] [id number] [address] [place] [address], [place] [address] Feb, [facility] [address] [id number] [address] [place] [address], [place] [address] Feb, [facility] [address] [id number] [address] [place] [address], [place] [address] Feb, [facility] [address] [id number] [address] [place] [address], [place] [address] Feb, [facility] [address] [id number] [address] [place] [address], [place] [address] Feb, [facility] [address] [id number] [address] [place] [address], [place] [address] Feb, [facility] [address] [id number] [address] [place] [address], [place] [address] Feb, [facility] [address] [id number] [address] [place] [address], [place] [address] Feb, [facility] [address] [id number] [address] [place] [address], [place] [address] Feb, [facility] [address] [id number] [address] [place] [address], [place] [address] Feb, [facility] [address] [id number] [address] [place] [address], [place] [address] January, [facility] [address] [id number] [address] [place] [address], [place] [address] January, [facility] [address] [id number] [address] [place] [address], [place] [address] January, [facility] [address] [id number] [address] [place] [address], [place] [address] January, [facility] [address] [id number] [address] [place] [address], [place] [address] January, [facility] [address] [id number] [address] [place] [address], [place] [address] January, [facility] [address] [id number] [address] [place] [address], [place] [address] January, [facility] [address] [id number] [address] [place] [address], [place] [address] January, [facility] [address] [id number] [address] [place] [address], [place] [address] January, [facility] [address] [id number] [address] [place] [address], [place] [address] January, [facility] [address] [id number] [address] [place] [address], [place] [address] January, [facility] [address] [id number] [address] [place] [address], [place] [address] January, [facility] [address] [id number] [address] [place] [address], [place] [address] January, [facility] [address] [id number] [address] [place] [address], [place] [address] January, [facility] [address] [id number] [facility] [place] [address] Dec, [facility] [address] [id number] [address] [place] [address], [place] [address] Dec, [facility] [address] [id number] [address] [place] [address], [place] [address] Dec, [facility] [address] [id number] [address] [place] [address], [place] [address] Dec, [facility] [address] [id number] [address] [place] [address], [place] [address] Dec, [facility] [address] [id number] [address] [place] [address], [place] [address] Dec, [facility] [address] [id number] [address] [place] [address], [place] [address] Dec, [facility] [address] [id number] [address] [place] [address], [place] [address] Dec, [facility] [address] [id number] [address] [place] [address], [place] [address] Dec, [facility] [address] [id number] [address] [place] [address], [place] [address] Dec, [facility] [address] [id number] [address] [place] [address], [place] [address] Nov, [facility] [address] [id number] [address] [place] [address], [place] [address] Nov, [facility] [address] [id number] [address] [place] [address], [place] [address] Nov, [facility] [address] [id number] [address] [place] [address], [place] [address] Nov, [facility] [address] [id number] [address] [place] [address], [place] [address] Nov, [facility] [address] [id number] [address] [place] [address], [place] [address] 08 Nov, 2013 [facility] [address] [id number] [address] [place] [address], [place] [address] Nov, [facility] [address] [id number] [address] [place] [address], [place] [address] Nov, [facility] [address] [id number] [address] [place] [address], [place] [address] Nov, [facility] [address] [id number] [address] [place] [address], [place] [address] Nov, [facility] [address] [id number] [address] [place] [address], [place] [address] Oct, [facility] [address] [id number] [address] [place] [address], [place] [address] Oct, [facility] [address] [id number] [address] [place] [address], [place] [address] Oct, [facility] [address] [id number] [address] [place] [address], [place] [address] Oct, [facility] [address] [id number] [address] [place] [address], [place] [address] Oct, [facility] [address] [id number] [address] [place] [address], [place] [address] Oct, [facility] [address] [id number] [address] [place] [address], [place] [address] Oct, [facility] [address] [id number] [address] [place] [address], [place] [address] Oct, [facility] [address] [id number] [address] [place] [address], [place] [address] Oct, [facility] [address] [id number] [address] [place] [address], [place] [address] Oct, [facility] [address] [id number] [address] [place] [address], [place] [address] Oct, [facility] [address] [id number] [address] [place] [address], [place] [address] Oct, [facility] [address] [id number] [address] [place] [address], [place] [address] Oct, [facility] [address] [id number] [address] [place] [address], [place] [address] Oct, [facility] [address] [id number] [address] [place] [address], [place] [address] Sep, [facility] [address] [id number] [address] [place] [address], [place] [address] Sep, [facility] [address] [id number] [address] [place] [address], [place] [address] Sep, [facility] [address] [id number] [address] [place] [address], [place] [address] Sep, [facility] [address] [id number] [address] [place] [address], [place] [address] Sep, [facility] [address] [id number] [address] [place] [address], [place] [address] Sep, [facility] [address] [id number] [address] [place] [address], [place] [address] Sep, [facility] [address] [id number] [address] [place] [address], [place] [address] Sep, [facility] [address] [id number] [address] [place] [address], [place] [address] Sep, [facility] [address] [id number] [address] [place] [address], [place] [address] Sep, [facility] [address] [id number] [address] [place] [address], [place] [address] Aug, [facility] [address] [id number] [address] [place] [address], [place] [address] Aug, [facility] [address] [id number] [address] [place] [address], [place] [address] Jul, [facility] [address] [id number] [address] [place] [address], [place] [address] Jul, [facility] [address] [id number] [address] [place] [address], [place] [address] Jul, [facility] [address] [id number] [address] [place] [address], [place] [address] Jul, [facility] [address] [id number] [address] [place] [address], [place] [address] Jul, [facility] [address] [id number] [address] [place] [address], [place] [address] Jul, [facility] [address] [id number] [address] [place] [address], [place] [address] Jul, [facility] [address] [id number] [address] [place] [address], [place] [address] Jul, [facility] [address] [id number] [address] [place] [address], [place] [address] Jul, [facility] [address] [id number] [address] [place] [address], [place] [address] Jul, [facility] [address] [id number] [address] [place] [address], [place] [address] Jul, [facility] [address] [id number] [address] [place] [address], [place] [address] Jul, [facility] [address] [id number] [address] [place] [address], [place] [address] Jul, [facility] [address] [id number] [address] [place] [address], [place] [address] Jul, [facility] [address] [id number] [address] [place] [address], [place] [address] 05 Jul, 2013 [facility] [address] [id number] [address] [place] [address], [place] [address] Jul, [facility] [address] [id number] [address] [place] [address], [place] [address] Jul, [facility] [address] [id number] [address] [place] [address], [place] [address] Jul, [facility] [address] [id number] [address] [place] [address], [place] [address] Jul, [facility] [address] [id number] [address] [place] [address], [place] [address] Jun, 2012 [facility] [address] [id number] [address] [place] [address], [place] [address] Jun, [facility] [address] [id number] [address] [place] [id number] Jun, 2012 [facility] [address] [id number] [address] [place] [address], [place] [address] Jun, 2012 [facility] [address] [id number] [address] [place] [address] Jun, [facility] [address] [id number] [address] [place] [address], [place] [address] Jun, [facility] [address] [id number] [address] [place] [address] Jun, [facility] [address] [id number] [address] [place] [address] Jun, [facility] [address] [id number] [address] [place] [id number] Jun, [facility] [address] [id number] [address] [place] [address], [place] [address] Jun, [facility] [address] [id number] [address] [place] [id number] Jun, [facility] [address] [id number] [address] [place] [id number] May, [facility] [address] [id number] [address] [place] [address], [place] [address] 25 May, 2012 [facility] [address] [id number] [address] [place] [address], [place] [address] 19 May, 2012 [facility] [address] [id number] [address] [place] [address], [place] [address] 17 May, 2012 [facility] [address] [id number] [address] [place] [address], [place] [address] 11 May, 2012 [facility] [address] [id number] [address] [place] [address], [place] [address] 10 May, 2012 [facility] [address] [id number] [address] [place] [address], [place] [address] 09 May, 2013 [facility] [address] [id number] [address] [place] [address], [place] [address] 05 May, 2013 [facility] [address] [id number] [address] [place] [address], [place] [address] Apr, [facility] [address] [id number] [address] [place] [address], [place] [address] Apr, [facility] [address] [id number] [address] [place] [address], [place] [address] Apr, [facility] [address] [id number] [address] [place] [address], [place] [address] Apr, [facility] [address] [id number] [address] [place] [address], [place] [address] Apr, [facility] [address] [id number] [address] [place] [address], [place] [address] Mar, [facility] [address] [id number] [address] [place] [address], [place] [address] Mar, [facility] [address] [id number] [address] [place] [address], [place] [address] Mar, [facility] [address] [id number] [address] [place] [address], [place] [address] Mar, [facility] [address] [id number] [address] [place] [address], [place] [address] Mar, [facility] [address] [id number] [address] [place] [address], [place] [address] Mar, [facility] [address] [id number] [address] [place] [address], [place] [address] Mar, [facility] [address] [id number] [address] [place] [address], [place] [address] Mar, [facility] [address] [id number] [address] [place] [address], [place] [address] Feb, [facility] [address] [id number] [address] [place] [address], [place] [address] Feb, [facility] [address] [id number] [address] [place] [address], [place] [address] January, [facility] [address] [id number] [address] [place] [address], [place] [address] January, [facility] [address] [id number] [address] [place] [address], [place] [address] Dec, [facility] [address] [id number] [address] [place] [address], [place] [address] Dec, [facility] [address] [id number] [address] [place] [address], [place] [address] Nov, [facility] [address] [id number] [address] [place] [address], [place] [address] Nov, [facility] [address] [id number] [address] [place] [address], [place] [address] Nov, [facility] [address] [id number] [address] [place] [address], [place] [address] Nov, [facility] [address] [id number] [address] [place] [address], [place] [address] Oct, [facility] [address] [id number] [address] [place] [address], [place] [address] Oct, [facility] [address] [id number] [address] [place] [address], [place] [address] Oct, [facility] [address] [id number] [address] [place] [address], [place] [address] 26 Oct, 2012 [facility] [address] [id number] [address] [place] [address], [place] [address] 16 Oct, 2012 [facility] [address] [id number] [address] [place] [address], [place] [address] 14 Oct, 2012 [facility] [address] [id number] [address] [place] [address], [place] [address] 08 Oct, 2012 [facility] [address] [id number] [address] [place] [address], [place] [address] 07 Oct, 2012 [facility] [address] [id number] [address] [place] [address], [place] [address] 03 Oct, 2012 [facility] [address] [id number] [address] [place] [address], [place] [address] 30 Sep, 2012 [facility] [address] [id number] [address] [place] [address], [place] [address] Sep, [facility] [address] [id number] [address] [place] [address], [place] [address] Sep, [facility] [address] [id number] [address] [place] [address], [place] [address] Sep, [facility] [address] [id number] [address] [place] [address], [place] [address] 17 Sep, 2012 [facility] [address] [id number] [address] [place] [address], [place] [address] 10 Sep, 2012 [facility] [address] [id number] [address] [place] [address], [place] [address] 09 Sep, 2012 [facility] [address] [id number] [address] [place] [address], [place] [address] Sep, [facility] [address] [id number] [address] [place] [address], [place] [address] Aug, [facility] [address] [id number] [address] [place] [address], [place] [address] Aug, [facility] [address] [id number] [address] [place] [address], [place] [address] Aug, [facility] [address] [id number] [address] [place] [address], [place] [address] Aug, [facility] [address] [id number] [address] [place] [address], [place] [address] Aug, [facility] [address] [id number] [address] [place] [address], [place] [address] Aug, [facility] [address] [id number] [address] [place] [address], [place] [address] Aug, [facility] [address] [id number] [address] [place] [address], [place] [address] Aug, [facility] [address] [id number] [address] [place] [address], [place] [address] Jul, [facility] [address] [id number] [address] [place] [address], [place] [address] Jul, [facility] [address] [id number] [address] [place] [address], [place] [address] Jul, [facility] [address] [id number] [address] [place] [address] Jul, [facility] [address] [id number] [address] [place] [address], [place] [address] Jul, [facility] [address] [id number] [address] [place] [address], [place] [address] Jul, [facility] [address] [id number] [address] [place] [address], [place] [address] Jun, [facility] [address] [id number] [address] [place] [address] Jun, [facility] [address] [id number] [address] [place] [address], [place] [address] Jun, [facility] [address] [id number] [address] [place] [address], [place] [address] Jun, [facility] [address] [id number] [address] [place] [address], [place] [address] Jun, [facility] [address] [id number] [address] [place] [address], [place] [address] Jun, [facility] [address] [id number] [address] [place] [address], [place] [address] 19 Jun, 2012 [facility] [address] [id number] [address] [place] [address], [place] [address] 10 Jun, 2012 [facility] [address] [id number] [address] [place] [address], [place] [address] 10 Jun, 2012 [facility] [address] [id number] [address] [place] [address], [place] [address] 26 May, 2012 [facility] [address] [id number] [address] [place] [address], [place] [address] 24 May, 2012 [facility] [address] [id number] [address] [place] [address], [place] [address] 18 May, 2012 [facility] [address] [id number] [address] [place] [address], [place] [address] 30 Apr, 2012 [facility] [address] [id number] [address] [place] [address], [place] [address] 29 Apr, 2012 [facility] [address] [id number] [address] [place] [address], [place] [address] 18 Apr, 2012 [facility] [address] [id number] [address] [place] [address], [place] [address] 14 Apr, 2012 [facility] [address] [id number] [address] [place] [address], [place] [address] 10 Apr, 2012 [facility] [address] [id number] [facility] [place] [address] Apr, [facility] [address] [id number] [address] [place] [address], [place] [address] Mar, [facility] [address] [id number] [address] [place] [address], [place] [address] Mar, [facility] [address] [id number] [address] [place] [address], [place] [address] Mar, [facility] [address] [id number] [address] [place] [address], [place] [address] Mar, [facility] [address] [id number] [address] [place] [address], [place] [address] Feb, [facility] [address] [id number] [address] [place] [address], [place] [address] Feb, [facility] [address] [id number] [address] [place] [address], [place] [address] Feb, [facility] [address] [id number] [address] [place] [address], [place] [address] Feb, [facility] [address] [id number] [address] [place] [address], [place] [address] Feb, [facility] [address] [id number] [address] [place] [address], [place] [address] January, [facility] [address] [id number] [address] [place] [address], [place] [address] January, [facility] [address] [id number] [address] [place] [address], [place] [address] January, [facility] [address] [id number] [address] [place] [address], [place] [address] January, [facility] [address] [id number] [address] [place] [address], [place] [address] January, [facility] [address] [id number] [address] [place] [address], [place] [address] January, [facility] [address] [id number] [address] [place] [address], [place] [address] Dec, [facility] [address] [id number] [address] [place] [address], [place] [address] 24 Dec, 2011 [facility] [address] [id number] [address] [place] [address], [place] [address] 17 Dec, 2011 [facility] [address] [id number] [address] [place] [address], [place] [address] Dec, [facility] [address] [id number] [address] [place] [address], [place] [address] Dec, [facility] [address] [id number] [address] [place] [address], [place] [address] 27 Nov, 2011 [facility] [address] [id number] [address] [place] [address], [place] [address] 14 Nov, 2011 [facility] [address] [id number] [address] [place] [address], [place] [address] Nov, [facility] [address] [id number] [address] [place] [address], [place] [address] Nov, [facility] [address] [id number] [address] [place] [address], [place] [address] 29 Oct, 2011 [facility] [address] [id number] [address] [place] [address], [place] [address] Oct, [facility] [address] [id number] [address] [place] [address], [place] [address] 24 Oct, 2011 [facility] [address] [id number] [address] [place] [address], [place] [address] 13 Oct, 2011 [facility] [address] [id number] [address] [place] [address], [place] [address] 08 Oct, 2011 [facility] [address] [id number] [address] [place] [address], [place] [address] Sep, [facility] [address] [id number] [address] [place] [address], [place] [address] Sep, [facility] [address] [id number] [address] [place] [address], [place] [address] Sep, [facility] [address] [id number] [address] [place] [address], [place] [address] Sep, [facility] [address] [id number] [address] [place] [address], [place] [address] Sep, [facility] [address] [id number] [address] [place] [address], [place] [address] Sep, [facility] [address] [id number] [address] [place] [address], [place] [address] Aug, [facility] [address] [id number] [address] [place] [address], [place] [address] Aug, [facility] [address] [id number] [address] [place] [address], [place] [address] Aug, [facility] [address] [id number] [address] [place] [address], [place] [address] Jul, [facility] [address] [id number] [address] [place] [address], [place] [address] Jul, [facility] [address] [id number] [address] [place] [address], [place] [address] Jul, [facility] [address] [id number] [address] [place] [address], [place] [address] Jul, [facility] [address] [id number] [address] [place] [address], [place] [address] Jun, [facility] [address] [id number] [address] [place] [address], [place] [address] Jun, [facility] [address] [id number] [address] [place] [address], [place] [address] Jun, [facility] [address] [id number] [address] [place] [address], [place] [address] Jun, [facility] [address] [id number] [address] [place] [address], [place] [address] 10 Jun, 2011 [facility] [address] [id number] [address] [place] [address], [place] [address] 10 Jun, 2011 [facility] [address] [id number] [address] [place] [address], [place] [address] 11 Mar, 2011 [facility] [address] [id number] [address] [place] [address], [place] [address] 18 Dec, 2010 [facility] [address] [id number] [address] [place] [address], [place] [address] 11 Dec, 2010 [facility] [address] [id number] [address] [place] [address], [place] [address] 18 Nov, 2010 [facility] [address] [id number] [address] [place] [address], [place] [address] 16 Nov, 2010 [facility] [address] [id number] [address] [place] [address], [place] [address] 10 Sep, 2010 [facility] [address] [id number] [address] [place] [address], [place] [address] 31 Aug, 2010 [facility] [address] [id number] [address] [place] [address], [place] [address] 29 Aug, 2010 [facility] [address] [id number] [address] [place] [address], [place] [address] 29 Aug, 2010 [facility] [address] [id number] [address] [place] [address], [place] [address] 29 Aug, 2010 [facility] [address] [id number] [address] [place] [address], [place] [address] 27 Aug, 2010 [facility] [address] [id number] [address] [place] [address], [place] [address] 14 Aug, 2010 [facility] [address] [id number] [address] [place] [address], [place] [address] 08 Aug, 2010 [facility] [address] [id number] [address] [place] [address] 08 Aug, 2010 [facility] [address] [id number] [address] [place] [address], [place] [address] Aug, [facility] [address] [id number] [address] [place] [address] Aug, [facility] [address] [id number] [address] [place] [address] Aug, [facility] [address] [id number] [address] [place] [address] Aug, [facility] [address] [id number] [address] [place] [address], [place] [address] Jul, [facility] [address] [id number] [address] [place] [address] Jul, [facility] [address] [id number] [address] [place] [address] Jul, [facility] [address] [id number] [address] [place] [address] Jul, [facility] [address] [id number] [address] [place] [address] Jul, [facility] [address] [id number] [address] [place] [id number] Jul, [facility] [address] [id number] [address] [place] [address] 24 Jun, 2010 [facility] [address] [id number] [address] [place] [address] Jun, [facility] [address] [id number] [address] [place] [address] Jun, [facility] [address] [id number] [address] [place] [address] Jun, [facility] [address] [id number] [address] [place] [address] 16 Apr, 2010 [facility] [address] [id number] [address] [place] [address], [place] [address] Mar, [facility] [address] [id number] [address] [place] [address], [place] [address] Feb, [facility] [address] [id number] [address] [place] [address], [place] [address] January, [facility] [address] [id number] [address] [place] [address], [place] [address] 15 Dec, 2009 [facility] [address] [id number] [address] [place] [address], [place] [address] Nov, [facility] [address] [id number] [address] [place] [address], [place] [address] 31 Aug, 2009 [facility] [address] [id number] [address] [place] [address], [place] [address] Aug, [facility] [address] [id number] [address] [place] [address], [place] [address] Aug, [facility] [address] [id number] [address] [place] [address], [place] [address] Jul, [facility] [address] [id number] [address] [place] [address], [place] [address] Jul, [facility] [address] [id number] [address] [place] [address], [place] [address] Jul, [facility] [address] [id number] [address] [place] [address], [place] [address] 30 Jun, 2009 [facility] [address] [id number] [address] [place] [address], [place] [address] 29 Jun, 2009 [facility] [address] [id number] [address] [place] [address], [place] [address] Jun, [facility] [address] [id number] [address] [place] [id number] Jun, [facility] [address] [id number] [address] [place] [phone] Jun, [facility] [address] [facility] [id number] [address] [place] [id number] Jun, [facility] [address] [facility] [id number] [address] [place] [id number] Apr, [facility] [address] [facility] [id number] [address] [place] [id number] Apr, [facility] [address] [facility] [id number] [address] [place] [id number] Feb, [facility] [address] [facility] [id number] [address] [place] [id number] January, [facility] [address] [facility] [id number] [address] [place] [phone] Dec, IMMUNIZATIONS No Known Immunizations SOCIAL HISTORY [...] History inability to urinate 09/16/15 Hospitalization History [facility]' Hospitalization History hyperkalemia 10/2017 Hospitalization History fluid in lung
--- OUTSIDE RECORDS SUMMARY | 2020-03-01 18:15 | XMS REPORT ---
Author Michele Murray Organization [facility] Address [address] [place] [address] Care Team Providers Care Reuse Technician Name Role Phone SP CARR Unavailable PROBLEMS Type Condition ICD9-CM Code [id number]-PH Code Onset Dates Condition S tatus SNOMED Code Problem Cough R05 Active 43803918 Problem Benign prostatic hyperplasia with lower urinary tract symptoms, unspecified morphology N40.1 Active 75764 6007 Problem Eustachian tube dysfunction, unspecified laterality H69.80 Active 75997547 Problem Chronic pain G89.29 Active 5210013 1 Problem DM neuro manif type II E11.49 Active 55072686 Problem Diabetes E11.9 Active 21676051 Problem Leukocytosis D72.829 Active 9963983 06 Problem Falling R29.6 Active 344221963 Problem Pressure ulcer of other site, stage 3 L89.893 Active 506761743 Problem 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 Active 212274122 Problem Eye exam abnormal R93.8 Active 16 9332709 Problem Dysuria R30.0 Active 00442127 Problem Hypokalemia E87.6 Active 50155612 Problem Morbid obesity E66.01 Active 56758 6002 Problem Anxiety F41.9 Active 65164361 Problem Diabetic polyneuropathy associated with type 2 d iabetes mellitus E11.42 Active 69205225 Problem Essential hypertension I10 Active 57288326 Problem Bilateral primary osteoarthritis of knee M17.0 Active 085504572 Problem Polyneuropathy associated with underlying disease G63 Active 061064916 Problem Anemia of chronic illness D63.8 Acti ve 029177159 Problem Lymphocytosis D72.820 Active 388995 09 Problem Retinal edema H35.81 Active 436556 6 Problem Chronic lymphocytic leukemia C91.10 A ctive 36362545 Problem Bipolar disorder, in partial remission, most rec ent episode depressed F31.75 Active 94802894 Problem Pure hypercholesterolemia E78.00 Acti ve 731117447 Problem Primary osteoarthritis of right knee M17.11 Active 734680593207561 Problem Bipolar disorder F31.9 Active 137 15056 Problem Bipolar I disorder, most recent episode (or curr ent) mixed, moderate F31.62 Active 35072125 Problem Chronic diastolic (congestive) heart failure I50.3 2 Active 041777054 Problem Reactive airway disease J45.909 Active 162839085723 Problem Insomnia, unspecified type G47.00 Act sharon 341774517 Problem Other chronic pain G89.29 Active 8 6800421 Problem Other iron deficiency anemia D50.8 A ctive 94244532 Problem Mild cognitive impairment G31.84 Acti ve 581102153 Problem Skin cancer C44.90 Active 48542249 7 ALLERGIES No Information ENCOUNTERS Encounter Location Date Diagnosis [place] [address] [place] [id number] [place] [address] Apr, [place] [address] [address] Mar, Bipolar disorder F31.9 and C hronic pain G89.29 [place] [address] [place] [id number] [address] [place] [address] Feb, Bipolar disorder F31.9 [place] [address] [place] [id number] [address] [place] [address] Feb, Cellulitis of right upper ex tremity L03.113 and Skin abrasion T14.8XXA [place] [address] [place] [id number] [address] [place] [address] Feb, Bipolar disorder, in partial remission, most recent episode depressed F31.75 and Mild cognitive impairment G31.84 [place] [address] [facility] [id number] [address] [place] [address] Feb, Chronic pain G89.29 [place] [address] [facility] [id number] [address] [place] [address] 03 Feb, 2019 Bipolar disorder, in partial remission, most recent episode depressed F31.75 and Mild cognitive impairment G31.84 [place] [address] [place] [id number] [address] [place] [address] January, Bipolar disorder, in partial remission, most recent episode depressed F31.75 and Mild cognitive impairment G31.84 [facility] [address] [id number] [address] [place] [address] January, Chronic pain G89.29 and Bipo lar disorder F31.9 [facility] [address] [id number] [address] [place] [address] January, Bipolar disorder, in partial remission, most recent episode depressed F31.75 and Mild cognitive impairment G31.84 [facility] [address] [id number] [address] [place] [address] Dec, [facility] [address] [id number] [address] [place] [address] Dec, Chronic pain G89.29 and Bipo lar disorder F31.9 [facility] [address] [id number] [address] [place] [address] Dec, Edema of both lower extremit ies R60.0 [facility] [address] [id number] [address] [place] [address] Dec, Bipolar disorder F31.9 [facility] [address] [id number] [address] [place] [address] Dec, Bipolar disorder, in partial remission, most recent episode depressed F31.75 and Mild cognitive impairment G31.84 [facility] [address] [id number] [address] [place] [address] Nov, [facility] [address] [id number] [address] [place] [address] Nov, Chronic pain G89.29 [facility] [address] [id number] [address] [place] [address] Nov, Bipolar disorder, in partial remission, most recent episode depressed F31.75 and Mild cognitive impairment G31.84 [facility] [address] [id number] [address] [place] [address] Nov, Bipolar disorder F31.9 [place] [address] [place] [id number] [place] [address] 04 Nov, 2018 Encounter for Medicare hilary [...] morphology N40.1 and Essential hypertension I10 [address] [address] Oct, Chronic pain G89.[address] [address] 18 Oct, 2018 Diabetes E11.9 [place] [address] [address] Oct, Bipolar I disorder, most rec ent episode (or current) mixed, moderate F31.62 and Mild cognitive impairment G31.84 [place] [id number] [place] [address] Oct, Bipolar I disorder, most rec ent episode (or current) mixed, moderate F31.62 and Mild cognitive impairment G31.84 [place] [address] [place] [id number] [address] [place] [address] Sep, Bipolar I disorder, most rec ent episode (or current) mixed, moderate F31.62 and Mild cognitive impairment G31.84 [place] [address] [place] [id number] [place] [address] Sep, [place] [id number] [place] [address] Sep, Diabetes E11.9 ; Hypoxia R09 .02 ; Hyperglycemia R73.9 ; Therapeutic drug monitoring Z51.81 ; BMI 50.0-59.9, adult Z68.43 and Skin cancer C44.90 [facility] [address] [facility] [id number] [address] [place] [address] Sep, Chronic pain G89.29 [facility] [address] [facility] [id number] [address] [place] [address] Sep, Bipolar I disorder, most rec ent episode (or current) mixed, moderate F31.62 [place] [address] [facility] [id number] [address] [place] [address] Sep, [place] [address] [facility] [id number] [address] [place] [address] Sep, [place] [address] [place] [id number] [address] [place] [address] Aug, Chronic pain G89.29 [place] [address] [place] [id number] [address] [place] [address] Aug, Bipolar I disorder, most rec ent episode (or current) mixed, moderate F31.62 [place] [address] [place] [id number] [address] [place] [address] Aug, Bipolar I disorder, most rec ent episode (or current) mixed, moderate F31.62 and Mild cognitive impairment G31.84 [place] [address] [facility] [id number] [address] [place] [address] Jul, [place] [address] [facility] [id number] [address] [place] [address] Jul, Chronic pain G89.29 [place] [address] [facility] [id number] [address] [place] [address] Jul, Bipolar I disorder, most rec ent episode (or current) mixed, moderate F31.62 and Mild cognitive impairment G31.84 [place] [address] [facility] [id number] [address] [place] [address] Jul, Bipolar I disorder, most rec ent episode (or current) mixed, moderate F31.62 and MCI (mild cognitive impairment) G31.84 [facility] [address] [id number] [address] [place] [address] Jul, [facility] [address] [id number] [address] [place] [address] Jul, [facility] [address] [id number] [address] [place] [address] Jul, Bipolar I disorder, most rec ent episode (or current) mixed, moderate F31.62 [facility] [address] [id number] [address] [place] [address] Jul, Chronic pain G89.29 [facility] [address] [id number] [address] [place] [address] Jun, Bipolar I disorder, most rec ent episode (or current) mixed, moderate F31.62 [facility] [address] [facility] [id number] [address] [place] [address] Jun, Pre-procedure lab exam Z01.8 12 [facility] [address] [facility] [id number] [address] [place] [address] Jun, [facility] [address] [id number] [place] [address] [id number] Jun, [facility] [address] [facility] [id number] [address] [place] [address] Jun, [facility] [address] [facility] [id number] [address] [place] [address] Jun, Forgetfulness R68.89 ; Pre-s yncope R55 ; Localized edema R60.0 ; Other iron deficiency anemia D50.8 and BMI 50.0-59.9, adult Z68.43 [facility] [address] [id number] [address] [place] [address] Jun, Chronic pain G89.29 [facility] [address] [facility] [id number] [address] [place] [address] Jun, Chronic pain G89.29 [facility] [address] [facility] [id number] [address] [place] [address] Jun, Bipolar I disorder, most rec ent episode (or current) mixed, moderate F31.62 [facility] [address] [place] [id number] [address] [place] [address] May, Chronic pain G89.29 [facility] [address] [facility] [id number] [address] [place] [address] Apr, [facility] [address] [facility] [id number] [address] [place] [address] Apr, Chronic pain G89.29 [facility] [address] [facility] [id number] [address] [place] [address] Apr, Primary osteoarthritis of ri ght knee M17.11 [place] [address] [place] [id number] [address] [place] [address] Mar, [place] [address] [place] [id number] [address] [place] [address] Mar, BMI 50.0-59.9, adult Z68.43 and Bipolar disorder, in partial remission, most recent episode depressed F31.75 [place] [address] [place] [id number] [place] [address] Mar, Diabetes E11.9 ; Pure hyperc holesterolemia E78.00 ; Essential hypertension I10 ; Nausea with vomiting, unspecified R11.2 and Headache, unspecified headache type R51 [facility] [address] [facility] [id number] [address] [place] [address] Mar, Bipolar I disorder, most rec ent episode (or current) mixed, moderate F31.62 [place] [id number] [place] [id number] [address] [place] [address] Mar, Bipolar I disorder, most rec ent episode (or current) mixed, moderate F31.62 [place] [address] [id number] [address] [place] [address] Mar, Chronic pain G89.29 [facility] [address] [id number] [address] [place] [address] Mar, Bipolar I disorder, most rec ent episode (or current) mixed, moderate F31.62 [facility] [address] [facility] [id number] [address] [place] [address] Feb, Bipolar I disorder, most rec ent episode (or current) mixed, moderate F31.62 [facility] [address] [id number] [address] [place] [address] Feb, Chronic pain G89.29 [facility] [address] [facility] [id number] [address] [place] [address] Feb, Decubitus ulcer of right josselin t, stage 3 L89.893 and BMI 50.0-59.9, adult Z68.43 [facility] [address] [facility] [id number] [address] [place] [address] Feb, Bipolar I disorder, most rec ent episode (or current) mixed, moderate F31.62 [facility] [address] [facility] [id number] [address] [place] [address] Feb, [facility] [address] [facility] [id number] [address] [place] [address] January, [facility] [address] [facility] [id number] [address] [place] [address] January, Chronic pain G89.29 [facility] [address] [id number] [address] [place] [address] January, Bipolar I disorder, most rec ent episode (or current) mixed, moderate F31.62 [facility] [address] [facility] [id number] [address] [place] [address] January, Bipolar I disorder, most rec ent episode (or current) mixed, moderate F31.62 [facility] [address] [place] [id number] [place] [address] Dec, Bipolar I disorder, most rec ent episode (or current) mixed, moderate F31.62 and BMI 50.0-59.9, adult Z68.43 [place] [address] [address] Dec, Bipolar I disorder, most rec ent episode (or current) mixed, moderate F31.62 [place] [address] [address] Dec, Chronic pain G89.[address] [address] Dec, DM neuro manif type II E11.4 9 ; Right flank pain R10.9 ; manager terminal 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 Z79.891 ; Encounter for medication monitoring Z51.81 and BMI 50.0-59.9, adult Z68.43 [place] [address] [address] Dec, Bipolar I disorder, most rec ent episode (or current) mixed, moderate F31.62 [place] [address] [address] Nov, Bipolar I disorder, most rec ent episode (or current) mixed, moderate F31.62 [place] [address] [address] Nov, Chronic pain G89.29 [place] [address] [place] [id number] [place] [address] Nov, Bipolar I disorder, most rec ent episode (or current) mixed, moderate F31.62 [place] [address] [address] Nov, Hypokalemia E87.6 [place] [address] [address] Nov, Bipolar I disorder, most rec ent episode (or current) mixed, moderate F31.62 [facility] [address] [facility] [id number] [address] [place] [address] Oct, Chronic pain G89.29 [facility] [address] [facility] [id number] [address] [place] [address] Oct, BMI 50.0-59.9, adult Z68.43 and Bipolar I disorder, most recent episode (or current) mixed, moderate F31.62 [facility] [address] [facility] [id number] [address] [place] [address] Oct, Bipolar I disorder, most rec ent episode (or current) mixed, moderate F31.62 [place] [address] [place] [id number] [address] [place] [address] Oct, [place] [address] [place] [id number] [place] [address] Oct, Hypokalemia E87.6 [place] [address] [place] [id number] [address] [place] [address] Oct, DM neuro manif type II E11.4 9 [place] [address] [place] [id number] [address] [place] [address] Oct, Bipolar I disorder, most rec ent episode (or current) mixed, moderate F31.62 [place] [address] [place] [id number] [address] [place] [address] Oct, Bipolar I disorder, most rec ent episode (or current) mixed, moderate F31.62 [place] [address] [facility] [id number] [address] [place] [address] 14 Oct, 2017 Hyperkalemia E87.5 ; Falling R29.6 ; BMI 50.0-59.9, adult Z68.43 and Acute left ankle pain M25.572 [facility] [address] [place] [id number] [address] [place] [address] Oct, DM neuro manif type II E11.4 9 [place] [address] [address] Oct, [place] [address] [address] Sep, Chronic pain G89.29 [place] [address] [address] Sep, [place] [address] [address] Sep, Bilateral primary osteoarthr itis of knee M17.0 [place] [address] [address] Sep, Generalized edema R60.1 [place] [address] [address] 16 Sep, 2017 Bipolar I disorder, most rec ent episode (or current) mixed, moderate F31.62 [place] [address] [address] Sep, Hypoxia R09.02 ; Other hyper volemia E87.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 ; Anemia of chronic illness D63.8 and BMI 50.0- 59.9, adult Z68.43 [place] [address] [address] Sep, [place] [address] [address] Sep, Bipolar I disorder, most rec ent episode (or current) mixed, moderate F31.62 [place] [address] [address] Aug, Chronic pain G89.29 [place] [address] [address] Aug, Generalized edema R60.1 [facility] [address] [facility] [id number] [address] [place] [address] Aug, [facility] [address] [facility] [id number] [address] [place] [address] Aug, [facility] [address] [place] [id number] [address] [place] [address] Aug, Bipolar I disorder, most rec ent episode (or current) mixed, moderate F31.62 [facility] [address] [facility] [id number] [address] [place] [address] Aug, Bipolar I disorder, most rec ent episode (or current) mixed, moderate F31.62 [facility] [address] [place] [id number] [address] [place] [address] Aug, Chronic pain G89.29 [facility] [address] [place] [id number] [address] [place] [address] Jul, Bipolar I disorder, most rec ent episode (or current) mixed, moderate F31.62 [facility] [address] [facility] [id number] [address] [place] [address] Jul, Bipolar I disorder, most rec ent episode (or current) mixed, moderate F31.62 and BMI 60.0-69.9, adult Z68.44 [facility] [address] [place] [id number] [address] [place] [address] Jul, Bipolar I disorder, most rec ent episode (or current) mixed, moderate F31.62 [facility] [address] [facility] [id number] [address] [place] [address] Jul, Chronic pain G89.29 [facility] [address] [place] [id number] [address] [place] [address] Jul, Bipolar I disorder, most rec ent episode (or current) mixed, moderate F31.62 [facility] [address] [place] [id number] [address] [place] [address] Jun, Polyneuropathy associated wi th underlying disease G63 and Diabetes E11.9 [facility] [address] [facility] [id number] [address] [place] [address] 16 Jun, 2017 Bipolar I disorder, most rec ent episode (or current) mixed, moderate F31.62 [facility] [address] [facility] [id number] [address] [place] [address] 09 Jun, 2017 Chronic pain G89.29 [facility] [address] [facility] [id number] [address] [place] [address] May, Bipolar I disorder, most rec ent episode (or current) mixed, moderate F31.62 [facility] [address] [facility] [id number] [address] [place] [address] May, Bipolar I disorder, most rec ent episode (or current) mixed, moderate F31.62 [facility] [address] [facility] [id number] [address] [place] [address] May, Diabetic polyneuropathy asso ciated with type 2 diabetes mellitus E11.42 [facility] [address] [facility] [id number] [address] [place] [address] 18 May, 2017 Bipolar I disorder, most rec ent episode (or current) mixed, moderate F31.62 [facility] [address] [facility] [id number] [address] [place] [address] 13 May, 2017 Bipolar I disorder, most rec ent episode (or current) mixed, moderate F31.62 [facility] [address] [facility] [id number] [address] [place] [address] May, Chronic pain G89.29 [facility] [address] [facility] [id number] [address] [place] [address] Apr, Bipolar I disorder, most rec ent episode (or current) mixed, moderate F31.62 [facility] [address] [facility] [id number] [address] [place] [address] Apr, [facility] [address] [facility] [id number] [address] [place] [address] Apr, Chronic pain G89.29 and DM n euro manif type II E11.49 [facility] [address] [id number] [address] [place] [address] Apr, [facility] [address] [facility] [id number] [address] [place] [address] Apr, Bipolar I disorder, most rec ent episode (or current) mixed, moderate F31.62 [facility] [address] [id number] [address] [place] [address] Apr, Chronic pain G89.29 [facility] [address] [id number] [address] [place] [address] Apr, Iliotibial band syndrome, le ft M76.32 [facility] [address] [facility] [id number] [address] [place] [address] Apr, Bipolar I disorder, most rec ent episode (or current) mixed, moderate F31.62 [facility] [address] [facility] [id number] [address] [place] [address] Mar, Bipolar I disorder, most rec ent episode (or current) mixed, moderate F31.62 [facility] [address] [facility] [id number] [address] [place] [address] Mar, Bipolar I disorder, most rec ent episode (or current) mixed, moderate F31.62 [facility] [address] [facility] [id number] [address] [place] [id number] Mar, [facility] [address] [id number] [address] [place] [id number] Mar, Bipolar I disorder, most rec ent episode (or current) mixed, moderate F31.62 [facility] [address] [facility] [id number] [address] [place] [id number] Mar, Chronic pain G89.29 [facility] [address] [facility] [id number] [address] [place] [id number] Mar, Bipolar I disorder, most rec ent episode (or current) mixed, moderate F31.62 [facility] [address] [id number] [address] [place] [id number] Mar, Bipolar I disorder, most rec ent episode (or current) mixed, moderate F31.62 [facility] [address] [id number] [address] [place] [id number] Mar, Acute pain of left knee M25. 562 ; Left hip pain M25.552 ; Generalized edema R60.1 and Tongue swelling R22.0 [facility] [address] [address] [id number] [address] [place] [id number] Mar, [facility] [address] [id number] [address] [place] [address] Feb, Chronic pain G89.29 [facility] [address] [id number] [address] [place] [address] Feb, Diabetes E11.9 [facility] [address] [id number] [address] [place] [address] January, Chronic pain G89.29 [facility] [address] [id number] [address] [place] [address] January, [facility] [address] [id number] [address] [place] [address] January, Bipolar I disorder, most rec ent episode (or current) mixed, moderate F31.62 [facility] [address] [id number] [address] [place] [address] Dec, Bipolar I disorder, most rec ent episode (or current) mixed, moderate F31.62 [facility] [address] [id number] [address] [place] [address] Dec, Chronic pain G89.29 [facility] [address] [id number] [address] [place] [address] Dec, Bipolar I disorder, most rec ent episode (or current) mixed, moderate F31.62 [facility] [address] [id number] [address] [place] [address] Dec, Diabetes E11.9 ; Essential h ypertension I10 ; Chronic pain G89.29 and Morbid obesity E66.01 [facility] [address] [id number] [address] [place] [address] Dec, [facility] [address] [id number] [address] [place] [address] Dec, Bipolar I disorder, most rec ent episode (or current) mixed, moderate F31.62 [facility] [address] [id number] [address] [place] [address] Dec, Bipolar I disorder, most rec ent episode (or current) mixed, moderate F31.62 [facility] [address] [facility] [id number] [address] [place] [address] Nov, Chronic pain G89.29 [facility] [address] [facility] [id number] [address] [place] [address] Nov, Bipolar I disorder, most rec ent episode (or current) mixed, moderate F31.62 [facility] [address] [id number] [address] [place] [address] Nov, [facility] [address] [facility] [id number] [address] [place] [address] Nov, Bipolar I disorder, most rec ent episode (or current) mixed, moderate F31.62 [facility] [address] [facility] [id number] [address] [place] [address] Nov, Bipolar I disorder, most rec ent episode (or current) mixed, moderate F31.62 [facility] [address] [facility] [id number] [address] [place] [address] Nov, [facility] [address] [id number] [address] [place] [address] Nov, [facility] [address] [facility] [id number] [address] [place] [address] Nov, [facility] [address] [facility] [id number] [address] [place] [address] Oct, Chronic pain G89.29 [facility] [address] [facility] [id number] [address] [place] [address] Oct, Bipolar I disorder, most rec ent episode (or current) mixed, moderate F31.62 [facility] [address] [facility] [id number] [address] [place] [address] Oct, [facility] [address] [facility] [id number] [address] [place] [address] Oct, Chronic pain G89.29 ; Diabet es E11.9 ; Anxiety F41.9 and 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 [facility] [address] [facility] [id number] [address] [place] [address] Oct, [facility] [address] [facility] [id number] [address] [place] [address] Oct, Diabetes E11.9 [facility] [address] [facility] [id number] [address] [place] [address] Oct, Bipolar I disorder, most rec ent episode (or current) mixed, moderate F31.62 [facility] [address] [facility] [id number] [address] [place] [address] Sep, Chronic pain G89.29 [facility] [address] [facility] [id number] [address] [place] [address] Sep, Chronic pain G89.29 [facility] [address] [facility] [id number] [address] [place] [address] Aug, Chronic pain G89.29 [facility] [address] [facility] [id number] [address] [place] [address] Jul, [facility] [address] [facility] [id number] [address] [place] [address] Jul, Diabetes E11.9 [facility] [address] [facility] [id number] [address] [place] [address] 09 Jul, 2016 Chronic pain G89.29 [facility] [address] [facility] [id number] [address] [place] [address] Jul, Bipolar I disorder, most rec ent episode (or current) mixed, moderate F31.62 [facility] [address] [facility] [id number] [address] [place] [address] Jun, Bipolar I disorder, most rec ent episode (or current) mixed, moderate F31.62 [facility] [address] [facility] [id number] [address] [place] [address] Jun, [facility] [address] [place] [id number] [address] [place] [address] Jun, Bipolar I disorder, most rec ent episode (or current) mixed, moderate F31.62 [facility] [facility] [address] [place] [id number] [address] [place] [address] May, Insomnia, unspecified type G 47.00 [facility] [address] [facility] [id number] [address] [place] [address] May, Bipolar I disorder, most rec ent episode (or current) mixed, moderate F31.62 [facility] [address] [place] [id number] [address] [place] [address] 14 May, 2016 [place] [address] [facility] [id number] [address] [place] [phone] 08 May, 2016 Bipolar I disorder, most rec ent episode (or current) mixed, moderate F31.62 [place] [address] [facility] [id number] [address] [place] [address] 06 May, 2016 Diabetes E11.9 and Essential hypertension I10 [facility] [address] [facility] [id number] [address] [place] [address] Apr, Chronic pain G89.29 [facility] [address] [facility] [id number] [address] [place] [address] Apr, Bipolar I disorder, most rec ent episode (or current) mixed, moderate F31.62 [facility] [address] [facility] [id number] [address] [place] [address] Apr, [facility] [address] [facility] [id number] [address] [place] [address] Apr, [facility] [address] [facility] [id number] [address] [place] [address] Mar, Chronic pain G89.29 ; Headac he, unspecified headache type R51 ; Neuropathy G62.9 ; Pain of right hip joint M25.551 and Essential hypertension I10 [place] [address] [facility] [id number] [address] [place] [address] Mar, Chronic pain G89.29 [facility] [place] [address] [facility] [id number] [address] [place] [address] Mar, Bipolar I disorder, most rec ent episode (or current) mixed, moderate F31.62 [facility] [address] [facility] [id number] [address] [place] [address] Feb, Bipolar I disorder, most rec ent episode (or current) mixed, moderate F31.62 and Insomnia, unspecified type G47.00 [facility] [address] [facility] [id number] [address] [place] [address] Feb, Chronic pain G89.29 [facility] [address] [facility] [id number] [address] [place] [address] Feb, Bipolar I disorder, most rec ent episode (or current) mixed, moderate F31.62 [place] [address] [facility] [id number] [address] [place] [address] January, Bipolar I disorder, most rec ent episode (or current) mixed, moderate F31.62 [facility] [address] [facility] [id number] [address] [place] [address] January, Chronic pain G89.29 [place] [address] [facility] [id number] [address] [place] [address] January, Chronic pain G89.29 and Esse ntial hypertension I10 [facility] [address] [facility] [id number] [address] [place] [address] January, Bipolar I disorder, most rec ent episode (or current) mixed, moderate F31.62 [facility] [address] [facility] [id number] [address] [place] [address] Dec, [facility] [address] [facility] [id number] [address] [place] [address] Dec, [facility] [address] [facility] [id number] [address] [place] [address] Dec, [facility] [address] [facility] [id number] [address] [place] [address] Dec, [facility] [address] [facility] [id number] [address] [place] [address] Nov, Reactive airway disease J45. 909 [facility] [address] [facility] [id number] [address] [place] [address] Nov, [facility] [address] [facility] [id number] [address] [place] [address] Nov, [facility] [address] [facility] [id number] [address] [place] [address] Nov, [facility] [address] [facility] [id number] [address] [place] [address] Nov, [facility] [address] [facility] [id number] [address] [place] [address] Nov, Onychomycosis B35.1 ; Hammer toe M20.40 ; Empire or callus L84 and DM neuro manif type II E11.49 [facility] [address] [facility] [id number] [address] [place] [address] 15 Nov, 2015 Chronic pain G89.29 ; Leukoc ytosis D72.829 and Diabetes E11.9 [place] [address] [address] Nov, [place] [address] [address] Oct, Bronchitis J40 [place] [address] [address] Oct, [place] [address] [address] Oct, [place] [address] [address] Oct, Mastoiditis, unspecified lat erality H70.90 and Type 2 diabetes mellitus with complication E11.8 [place] [address] [address] Sep, [place] [address] [address] Sep, Dysuria R30.0 ; Cough R05 ; Benign prostatic hyperplasia with lower urinary tract symptoms, unspecified morphology N40.1 ; Hypokalemia E87.6 and Eustachian tube dysfunction, unspecified laterality H69.80 [place] [address] [address] Sep, Moderate mixed bipolar I dis order F31.62 [place] [address] [address] Sep, Hypokalemia E87.6 [place] [address] [id number] Sep, [place] [address] [address] Sep, Upper respiratory tract infe ction, unspecified type J06.9 [place] [address] [address] Aug, [facility] [address] [id number] [address] [place] [address] Aug, Dysuria R30.0 [facility] [address] [id number] [address] [place] [address] Aug, [facility] [address] [id number] [address] [place] [address] Jul, [facility] [address] [id number] [address] [place] [address] Jul, [facility] [address] [id number] [address] [place] [address] Jul, [facility] [address] [id number] [address] [place] [address] Jul, [facility] [address] [id number] [address] [place] [address] Jun, [facility] [address] [id number] [address] [place] [address] Jun, [facility] [address] [id number] [address] [place] [address] Jun, [facility] [address] [id number] [address] [place] [address] May, [facility] [address] [id number] [address] [place] [address] May, Bipolar I disorder, most rec ent episode (or current) mixed, moderate 296.62 [facility] [address] [id number] [address] [place] [address] 16 May, 2015 [facility] [address] [id number] [address] [place] [address] 02 May, 2015 Bipolar I disorder, most rec ent episode (or current) mixed, moderate 296.62 and Major depressive disorder, recurrent episode, severe, specified as with psychotic behavior 296.34 [facility] [address] [id number] [address] [place] [address] May, Bipolar I disorder, most rec ent episode (or current) mixed, moderate 296.62 [facility] [address] [id number] [address] [place] [address] May, [facility] [address] [facility] [id number] [address] [place] [address] Apr, [facility] [address] [facility] [id number] [address] [place] [address] Apr, [facility] [address] [facility] [id number] [address] [place] [address] Apr, Unspecified disorder of kidn ey and ureter 593.9 and Diabetes mellitus type 2, uncontrolled 250.02 [facility] [address] [id number] [address] [place] [address] Apr, [facility] [address] [facility] [id number] [address] [place] [address] Apr, [facility] [address] [facility] [id number] [address] [place] [address] Apr, [facility] [address] [facility] [id number] [address] [place] [address] Apr, [facility] [address] [facility] [id number] [address] [place] [address] Apr, Diabetes mellitus type II, u ncontrolled 250.02 [facility] [address] [id number] [address] [place] [address] Apr, [facility] [address] [facility] [id number] [address] [place] [address] Mar, [facility] [address] [facility] [id number] [address] [place] [address] Mar, [facility] [address] [facility] [id number] [address] [place] [address] Mar, [facility] [address] [facility] [id number] [address] [place] [address] Mar, Major depressive disorder, r ecurrent episode, severe, specified as with psychotic behavior 296.34 and Bipolar I disorder, most recent episode (or current) mixed, moderate 296.62 [facility] [address] [place] [id number] [address] [place] [address] Mar, Diabetes 250.00 ; Anuria 788 .5 ; Nausea and vomiting 787.01 and Diarrhea 787.91 [facility] [address] [address] Mar, Diabetes 250.00 [facility] [address] [address] Mar, [facility] [address] [address] Mar, Diabetes 250.00 [facility] [address] [address] Mar, [facility] [address] [address] Mar, [facility] [address] [address] Mar, [facility] [address] [address] Mar, [facility] [address] [place] [id number] [address] [place] [address] Mar, Bipolar I disorder, most rec ent episode (or current) mixed, moderate 296.62 and Major depressive disorder, recurrent episode, severe, specified as with psychotic behavior 296.34 [facility] [address] [address] Mar, Magnesium deficiency 275.2 ; Hypokalemia 276.8 ; Nausea & vomiting 787.01 and Diabetes mellitus type 2, uncontrolled 250.02 [facility] [address] [place] [id number] [place] [address] Feb, [facility] [address] [address] Feb, Bipolar I disorder, most rec ent episode (or current) mixed, moderate 296.62 [facility] [address] [address] Feb, Nausea and vomiting 787.01 ; Left elbow pain 719.42 ; Anuria 788.5 and Diabetes 250.00 [facility] [address] [address] Feb, [facility] [address] [address] Feb, Hypopotassemia 276.8 and Hyp okalemia 276.8 [place] [address] [address] Feb, Hypopotassemia 276.8 and Hyp okalemia 276.8 [place] [address] [address] Feb, Seborrheic keratoses 702.19 [place] [address] [address] Feb, Hypopotassemia 276.8 and Low magnesium levels 275.2 [facility] [address] [address] January, [facility] [address] [address] January, [facility] [address] [address] January, [facility] [address] [address] January, Scalp lesion 709.9 [facility] [address] [address] January, [facility] [address] [place] [address] 30 Dec, 2014 Tear of medial cartilage or meniscus of knee, current 836.0 and 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 [facility] [address] [id number] [address] [place] [address] Dec, [facility] [address] [id number] [address] [place] [address] Dec, [facility] [address] [id number] [address] [place] [phone] 28 Dec, 2014 Squamous cell carcinoma, 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 [facility] [address] [id number] [address] [place] [address] 14 Dec, 2014 [facility] [address] [id number] [address] [place] [address] Dec, [facility] [address] [id number] [address] [place] [address] Nov, [facility] [address] [id number] [address] [place] [address] Nov, [facility] [address] [id number] [address] [place] [address] Nov, [facility] [address] [id number] [address] [place] [address] Nov, [facility] [address] [id number] [address] [place] [address] Nov, [facility] [address] [id number] [address] [place] [address] Nov, [facility] [address] [id number] [address] [place] [address] Nov, [facility] [address] [id number] [address] [place] [address] Nov, [facility] [address] [id number] [address] [place] [id number] Nov, [facility] [place] [facility] [address] [id number] [address] [place] [address], [place] [address] Nov, [facility] [place] [facility] [address] [id number] [address] [place] [address], [place] [address] Nov, [facility] [place] [facility] [address] [id number] [address] [place] [address], [place] [address] Nov, [facility] [place] [facility] [address] [id number] [address] [place] [address], [place] [address] Oct, 2014 [facility] [address] [id number] [address] [place] [address], [place] [address] Oct, 2014 [facility] [place] [facility] [address] [id number] [address] [place] [address], [place] [address] Oct, 2014 [facility] [place] [facility] [address] [id number] [address] [place] [address], [place] [address] Oct, 2014 [facility] [place] [facility] [address] [id number] [address] [place] [address], [place] [address] Oct, 2014 [facility] [place] [facility] [address] [id number] [address] [place] [address], [place] [address] Oct, [facility] [place] [facility] [address] [id number] [address] [place] [address], [place] [address] Oct, [facility] [place] [facility] [address] [id number] [address] [place] [address], [place] [address] Oct, 2014 [facility] [place] [facility] [address] [id number] [address] [place] [address], [place] [address] Oct, [facility] [place] [facility] [address] [id number] [address] [place] [address], [place] [address] Sep, [facility] [place] [facility] [address] [id number] [address] [place] [address], [place] [address] Sep, [facility] [place] [facility] [address] [id number] [address] [place] [address], [place] [address] Sep, [facility] [address] [id number] [address] [place] [address], [place] [address] Sep, [facility] [address] [id number] [address] [place] [address], [place] [address] Sep, [facility] [address] [id number] [address] [place] [address], [place] [address] Sep, [facility] [address] [id number] [address] [place] [address], [place] [address] Sep, [facility] [address] [id number] [address] [place] [address], [place] [address] Sep, [facility] [address] [id number] [address] [place] [address], [place] [address] Sep, [facility] [address] [id number] [address] [place] [address], [place] [address] Sep, [facility] [address] [id number] [address] [place] [address], [place] [address] Sep, [facility] [address] [id number] [address] [place] [address], [place] [address] Sep, [facility] [address] [id number] [address] [place] [address], [place] [address] Sep, [facility] [address] [id number] [address] [place] [address], [place] [address] Sep, [facility] [address] [id number] [address] [place] [address], [place] [address] Sep, [facility] [address] [id number] [address] [place] [address], [place] [address] Sep, [facility] [address] [id number] [address] [place] [address], [place] [address] Aug, [facility] [address] [id number] [address] [place] [address], [place] [address] Aug, [facility] [address] [id number] [address] [place] [address], [place] [address] Aug, [facility] [address] [id number] [address] [place] [address], [place] [address] Aug, [facility] [address] [id number] [address] [place] [address], [place] [address] Aug, [facility] [address] [id number] [address] [place] [address] Aug, [facility] [address] [id number] [address] [place] [address], [place] [address] Aug, [facility] [address] [id number] [address] [place] [address], [place] [address] Aug, [facility] [address] [id number] [address] [place] [address], [place] [address] Aug, [facility] [address] [id number] [address] [place] [address], [place] [address] Aug, [facility] [address] [id number] [address] [place] [address], [place] [address] Aug, [facility] [place] [address] [place] [id number] Aug, [facility] [address] [id number] [address] [place] [address], [place] [address] Aug, [facility] [address] [id number] [address] [place] [address], [place] [address] Aug, [facility] [address] [id number] [address] [place] [address], [place] [address] Aug, [facility] [address] [id number] [address] [place] [address], [place] [address] Aug, [facility] [address] [id number] [address] [place] [address], [place] [address] Aug, [facility] [address] [id number] [address] [place] [address], [place] [address] Aug, [facility] [address] [id number] [address] [place] [address], [place] [address] Aug, [facility] [address] [id number] [address] [place] [address], [place] [address] Aug, [facility] [address] [id number] [address] [place] [address], [place] [address] Aug, [facility] [address] [id number] [address] [place] [address], [place] [address] Aug, [facility] [address] [id number] [address] [place] [address], [place] [address] Aug, [facility] [address] [id number] [address] [place] [address], [place] [address] Aug, [facility] [address] [id number] [address] [place] [address], [place] [address] Aug, [facility] [address] [id number] [address] [place] [address], [place] [address] Aug, [facility] [address] [id number] [address] [place] [address], [place] [address] Aug, [facility] [address] [id number] [address] [place] [address], [place] [address] Aug, [facility] [address] [id number] [address] [place] [address], [place] [address] Aug, [facility] [address] [id number] [address] [place] [address], [place] [address] Aug, [facility] [address] [id number] [address] [place] [address], [place] [address] Jul, [facility] [address] [id number] [address] [place] [address], [place] [address] Jul, [facility] [address] [id number] [address] [place] [address], [place] [address] Jul, [facility] [address] [id number] [address] [place] [address], [place] [address] Jul, [facility] [address] [id number] [address] [place] [address], [place] [address] Jul, [facility] [address] [id number] [address] [place] [address], [place] [address] Jul, [facility] [address] [id number] [address] [place] [address], [place] [address] Jul, [facility] [address] [id number] [address] [place] [address], [place] [address] Jul, [facility] [address] [id number] [address] [place] [address], [place] [address] Jul, [facility] [address] [id number] [address] [place] [address], [place] [address] Jul, [facility] [address] [id number] [address] [place] [address], [place] [address] Jun, [facility] [address] [id number] [address] [place] [address], [place] [address] Jun, [facility] [address] [id number] [address] [place] [address], [place] [address] Jun, [facility] [address] [id number] [address] [place] [address], [place] [address] Jun, [facility] [address] [id number] [address] [place] [address], [place] [address] Jun, [facility] [address] [id number] [address] [place] [address], [place] [address] Jun, [facility] [address] [id number] [address] [place] [address], [place] [address] Jun, [facility] [address] [id number] [address] [place] [address], [place] [address] Jun, [facility] [address] [id number] [address] [place] [address], [place] [address] Jun, [facility] [address] [id number] [address] [place] [address], [place] [address] Jun, [facility] [address] [id number] [address] [place] [address], [place] [address] 29 Sep, 2013 [facility] [address] [id number] [address] [place] [address], [place] [address] 29 Sep, 2013 [facility] [address] [id number] [address] [place] [address], [place] [address] 26 Sep, 2013 [facility] [address] [id number] [address] [place] [address], [place] [address] 26 Sep, 2013 [facility] [address] [id number] [address] [place] [address], [place] [address] 17 May, 2013 [facility] [address] [id number] [address] [place] [address], [place] [address] 17 May, 2013 [facility] [address] [id number] [address] [place] [address], [place] [address] 15 May, 2013 [facility] [address] [id number] [address] [place] [address], [place] [address] 15 May, 2013 [facility] [address] [id number] [address] [place] [address], [place] [address] 15 May, 2013 [facility] [address] [id number] [address] [place] [address], [place] [address] 15 May, 2013 [facility] [address] [id number] [address] [place] [address], [place] [address] 10 May, 2013 [facility] [address] [id number] [address] [place] [address], [place] [address] 10 May, 2013 [facility] [address] [id number] [address] [place] [address], [place] [address] 09 Sep, 2013 [facility] [address] [id number] [address] [place] [address], [place] [address] 09 Sep, 2013 [facility] [address] [id number] [address] [place] [address], [place] [address] 04 Sep, 2013 [facility] [address] [id number] [address] [place] [address], [place] [address] May, [facility] [address] [id number] [address] [place] [address] Apr, [facility] [address] [id number] [address] [place] [address], [place] [address] Apr, [facility] [address] [id number] [address] [place] [address], [place] [address] Apr, [facility] [address] [id number] [address] [place] [address], [place] [address] Apr, [facility] [address] [id number] [address] [place] [address], [place] [address] Apr, [facility] [address] [id number] [address] [place] [address], [place] [address] Apr, [facility] [address] [id number] [address] [place] [address], [place] [address] Apr, [facility] [address] [id number] [address] [place] [address], [place] [address] Apr, [facility] [address] [id number] [address] [place] [address], [place] [address] Apr, [facility] [address] [id number] [address] [place] [address], [place] [address] Apr, [facility] [address] [id number] [address] [place] [address], [place] [address] Apr, [facility] [address] [id number] [address] [place] [address], [place] [address] Apr, [facility] [address] [id number] [address] [place] [address], [place] [address] Apr, [facility] [address] [id number] [address] [place] [address], [place] [address] Apr, [facility] [address] [id number] [address] [place] [address], [place] [address] Apr, [facility] [address] [id number] [address] [place] [address] Mar, 2013 [facility] [address] [id number] [address] [place] [address] Mar, 2013 [facility] [address] [id number] [address] [place] [address] Mar, 2013 [facility] [address] [id number] [address] [place] [address], [place] [address] Mar, 2013 [facility] [address] [id number] [address] [place] [address], [place] [address] Mar, 2013 [facility] [address] [id number] [address] [place] [address], [place] [address] Mar, 2013 [facility] [address] [id number] [address] [place] [address], [place] [address] Mar, 2013 [facility] [address] [id number] [address] [place] [address], [place] [address] Mar, 2013 [facility] [address] [id number] [address] [place] [address], [place] [address] Mar, 2013 [facility] [address] [id number] [address] [place] [address], [place] [address] Mar, 2013 [facility] [address] [id number] [address] [place] [address], [place] [address] Mar, 2013 [facility] [address] [id number] [address] [place] [address], [place] [address] Mar, 2013 [facility] [address] [id number] [address] [place] [address], [place] [address] Mar, 2013 [facility] [address] [id number] [address] [place] [address], [place] [address] Mar, 2013 [facility] [address] [id number] [address] [place] [address], [place] [address] Mar, 2013 [facility] [address] [id number] [address] [place] [address], [place] [address] Mar, [facility] [address] [id number] [address] [place] [address] Mar, [facility] [address] [id number] [address] [place] [address] Mar, [facility] [address] [id number] [address] [place] [address] Feb, [facility] [address] [id number] [address] [place] [address], [place] [address] Feb, [facility] [address] [id number] [address] [place] [address] Feb, [facility] [address] [id number] [address] [place] [address], [place] [address] Feb, [facility] [address] [id number] [address] [place] [address], [place] [address] Feb, [facility] [address] [id number] [address] [place] [address], [place] [address] Feb, [facility] [address] [id number] [address] [place] [address], [place] [address] Feb, [facility] [address] [id number] [address] [place] [address], [place] [address] Feb, [facility] [address] [id number] [address] [place] [address], [place] [address] Feb, [facility] [address] [id number] [address] [place] [address], [place] [address] Feb, [facility] [address] [id number] [address] [place] [address], [place] [address] Feb, [facility] [address] [id number] [address] [place] [address], [place] [address] Feb, [facility] [address] [id number] [address] [place] [address], [place] [address] Feb, [facility] [address] [id number] [address] [place] [address], [place] [address] Feb, [facility] [address] [id number] [address] [place] [address] January, [facility] [address] [id number] [address] [place] [address], [place] [address] January, [facility] [address] [id number] [address] [place] [address], [place] [address] January, [facility] [address] [id number] [address] [place] [address], [place] [address] January, [facility] [address] [id number] [address] [place] [address], [place] [address] January, [facility] [address] [id number] [address] [place] [address], [place] [address] January, [facility] [address] [id number] [address] [place] [address], [place] [address] January, [facility] [address] [id number] [address] [place] [address], [place] [address] January, [facility] [address] [id number] [address] [place] [address], [place] [address] January, [facility] [address] [id number] [address] [place] [address], [place] [address] January, [facility] [address] [id number] [address] [place] [address], [place] [address] January, [facility] [address] [id number] [address] [place] [address], [place] [address] January, [facility] [address] [id number] [address] [place] [address], [place] [address] January, [facility] [address] [id number] [address] [place] [address], [place] [address] January, [facility] [address] [id number] [address] [place] [address], [place] [address] Dec, [facility] [address] [id number] [address] [place] [address] Dec, [facility] [address] [id number] [address] [place] [address] Dec, [facility] [address] [id number] [address] [place] [address] Dec, [facility] [address] [id number] [address] [place] [address], [place] [address] Dec, [facility] [address] [id number] [address] [place] [address], [place] [address] Dec, [facility] [address] [id number] [address] [place] [address], [place] [address] Dec, [facility] [address] [id number] [address] [place] [address], [place] [address] Dec, [facility] [address] [id number] [address] [place] [address], [place] [address] Dec, [facility] [address] [id number] [address] [place] [address], [place] [address] Dec, [facility] [address] [id number] [address] [place] [address], [place] [address] Nov, [facility] [address] [id number] [address] [place] [address], [place] [address] Nov, [facility] [address] [id number] [address] [place] [address], [place] [address] Nov, [facility] [address] [id number] [address] [place] [address], [place] [address] Nov, [facility] [address] [id number] [address] [place] [address], [place] [address] Nov, [facility] [address] [id number] [address] [place] [address], [place] [address] Nov, [facility] [address] [id number] [address] [place] [address], [place] [address] Nov, [facility] [address] [id number] [address] [place] [address] Nov, [facility] [address] [id number] [address] [place] [address], [place] [address] Nov, [facility] [address] [id number] [address] [place] [address], [place] [address] Nov, [facility] [address] [id number] [address] [place] [address], [place] [address] Oct, [facility] [address] [id number] [address] [place] [address], [place] [address] Oct, [facility] [address] [id number] [address] [place] [address], [place] [address] Oct, [facility] [address] [id number] [address] [place] [address], [place] [address] Oct, [facility] [address] [id number] [address] [place] [address], [place] [address] Oct, [facility] [address] [id number] [address] [place] [address], [place] [address] Oct, [facility] [address] [id number] [address] [place] [address], [place] [address] Oct, [facility] [address] [id number] [address] [place] [address], [place] [address] Oct, [facility] [address] [id number] [address] [place] [address], [place] [address] Oct, [facility] [address] [id number] [address] [place] [address], [place] [address] Oct, [facility] [address] [id number] [address] [place] [address], [place] [address] Oct, [facility] [address] [id number] [address] [place] [address], [place] [address] Oct, [facility] [address] [id number] [address] [place] [address], [place] [address] Oct, [facility] [address] [id number] [address] [place] [address], [place] [address] Oct, [facility] [address] [id number] [address] [place] [address], [place] [address] Sep, [facility] [address] [id number] [address] [place] [address], [place] [address] Sep, [facility] [address] [id number] [address] [place] [address], [place] [address] Sep, [facility] [address] [id number] [address] [place] [address], [place] [address] Sep, [facility] [address] [id number] [address] [place] [address], [place] [address] Sep, [facility] [address] [id number] [address] [place] [address], [place] [address] Sep, [facility] [address] [id number] [address] [place] [address], [place] [address] Sep, [facility] [address] [id number] [address] [place] [address], [place] [address] Sep, [facility] [address] [id number] [address] [place] [address], [place] [address] Sep, [facility] [address] [id number] [address] [place] [address], [place] [address] Sep, [facility] [address] [id number] [address] [place] [address], [place] [address] Aug, [facility] [address] [id number] [address] [place] [address], [place] [address] Aug, [facility] [address] [id number] [address] [place] [address], [place] [address] Jul, [facility] [address] [id number] [address] [place] [address] Jul, [facility] [address] [id number] [address] [place] [address], [place] [address] Jul, [facility] [address] [id number] [address] [place] [address], [place] [address] Jul, [facility] [address] [id number] [address] [place] [address], [place] [address] Jul, [facility] [address] [id number] [address] [place] [address], [place] [address] Jul, [facility] [address] [id number] [address] [place] [address], [place] [address] Jul, [facility] [address] [id number] [address] [place] [address], [place] [address] Jul, [facility] [address] [id number] [address] [place] [address], [place] [address] Jul, [facility] [address] [id number] [address] [place] [address], [place] [address] Jul, [facility] [address] [id number] [address] [place] [address], [place] [address] Jul, [facility] [address] [id number] [address] [place] [address], [place] [address] Jul, [facility] [address] [id number] [address] [place] [address], [place] [address] Jul, [facility] [address] [id number] [address] [place] [address] Jul, [facility] [address] [id number] [address] [place] [address], [place] [address] Jul, [facility] [address] [id number] [address] [place] [address], [place] [address] Jul, [facility] [address] [id number] [address] [place] [address], [place] [address] Jul, [facility] [address] [id number] [address] [place] [address], [place] [address] Jul, 2012 [facility] [address] [id number] [address] [place] [address], [place] [address] Jul, 2012 [facility] [address] [id number] [address] [place] [address], [place] [address] Jun, 2012 [facility] [address] [id number] [address] [place] [address], [place] [address] Jun, 2012 [facility] [address] [id number] [address] [place] [address], [place] [address] Jun, 2012 [facility] [address] [id number] [address] [place] [address], [place] [address] Jun, 2012 [facility] [address] [id number] [address] [place] [address], [place] [address] Jun, 2012 [facility] [address] [id number] [address] [place] [address], [place] [address] Jun, 2012 [facility] [address] [id number] [address] [place] [address], [place] [address] Jun, 2012 [facility] [address] [id number] [address] [place] [address], [place] [address] Jun, 2012 [facility] [address] [id number] [address] [place] [address], [place] [address] Jun, [facility] [address] [id number] [address] [place] [address], [place] [address] Jun, [facility] [address] [id number] [address] [place] [address], [place] [address] Jun, [facility] [address] [id number] [address] [place] [address], [place] [address] May, 2012 [facility] [address] [id number] [address] [place] [address], [place] [address] 25 May, 2012 [facility] [address] [id number] [address] [place] [address], [place] [address] 19 Sep, 2012 [facility] [address] [id number] [address] [place] [address] 17 May, 2012 [facility] [address] [id number] [address] [place] [address], [place] [address] 11 May, 2013 [facility] [address] [id number] [address] [place] [address], [place] [address] 10 May, 2013 [facility] [address] [id number] [address] [place] [address], [place] [address] 09 May, 2013 [facility] [address] [id number] [address] [place] [address], [place] [address] 05 May, 2013 [facility] [address] [id number] [address] [place] [address], [place] [address] Apr, [facility] [address] [id number] [address] [place] [address], [place] [address] Apr, [facility] [address] [id number] [address] [place] [address], [place] [address] Apr, [facility] [address] [id number] [address] [place] [address], [place] [address] Apr, [facility] [address] [id number] [address] [place] [address], [place] [address] Apr, [facility] [address] [id number] [address] [place] [address], [place] [address] Mar, [facility] [address] [id number] [address] [place] [address], [place] [address] Mar, [facility] [address] [id number] [address] [place] [address], [place] [address] Mar, [facility] [address] [id number] [address] [place] [address], [place] [address] Mar, [facility] [address] [id number] [address] [place] [address], [place] [address] Mar, [facility] [address] [id number] [address] [place] [address], [place] [address] Mar, [facility] [address] [id number] [address] [place] [address], [place] [address] Mar, [facility] [address] [id number] [address] [place] [address], [place] [address] Mar, [facility] [address] [id number] [address] [place] [address], [place] [address] Feb, [facility] [address] [id number] [address] [place] [address], [place] [address] Feb, [facility] [address] [id number] [address] [place] [address], [place] [address] January, [facility] [address] [id number] [address] [place] [address], [place] [address] January, [facility] [address] [id number] [address] [place] [address], [place] [address] Dec, [facility] [address] [id number] [address] [place] [address], [place] [address] Dec, [facility] [address] [id number] [address] [place] [address], [place] [address] Nov, [facility] [address] [id number] [address] [place] [address], [place] [address] Nov, [facility] [address] [id number] [address] [place] [address], [place] [address] Nov, [facility] [address] [id number] [address] [place] [address], [place] [address] Nov, [facility] [address] [id number] [address] [place] [address], [place] [address] Oct, [facility] [address] [id number] [address] [place] [address], [place] [address] Oct, [facility] [address] [id number] [address] [place] [address], [place] [address] Oct, [facility] [address] [id number] [address] [place] [address], [place] [address] Oct, [facility] [address] [id number] [address] [place] [address], [place] [address] 16 Oct, 2012 [facility] [address] [id number] [address] [place] [address], [place] [address] 14 Oct, 2012 [facility] [address] [id number] [address] [place] [address], [place] [address] 08 Oct, 2012 [facility] [address] [id number] [address] [place] [address], [place] [address] 07 Oct, 2012 [facility] [address] [id number] [address] [place] [address], [place] [address] Oct, [facility] [address] [id number] [address] [place] [address], [place] [address] Sep, [facility] [address] [id number] [address] [place] [address], [place] [address] Sep, [facility] [address] [id number] [address] [place] [address], [place] [address] Sep, [facility] [address] [id number] [address] [place] [address], [place] [address] Sep, [facility] [address] [id number] [address] [place] [address], [place] [address] Sep, [facility] [address] [id number] [address] [place] [address], [place] [address] Sep, [facility] [address] [id number] [address] [place] [address], [place] [address] Sep, [facility] [address] [id number] [address] [place] [address], [place] [address] 08 Sep, 2012 [facility] [address] [id number] [address] [place] [address], [place] [address] Aug, [facility] [address] [id number] [address] [place] [address], [place] [address] 31 Aug, 2012 [facility] [address] [id number] [address] [place] [address], [place] [address] Aug, [facility] [address] [id number] [address] [place] [address], [place] [address] Aug, [facility] [address] [id number] [address] [place] [address], [place] [address] Aug, [facility] [address] [id number] [address] [place] [address], [place] [address] Aug, [facility] [address] [id number] [address] [place] [address], [place] [address] Aug, [facility] [address] [id number] [address] [place] [address], [place] [address] Aug, [facility] [address] [id number] [address] [place] [address], [place] [address] Jul, [facility] [address] [id number] [address] [place] [address], [place] [address] Jul, [facility] [address] [id number] [address] [place] [address], [place] [address] Jul, [facility] [address] [id number] [address] [place] [address], [place] [address] Jul, [facility] [address] [id number] [address] [place] [address], [place] [address] Jul, [facility] [address] [id number] [address] [place] [address], [place] [address] Jul, [facility] [address] [id number] [address] [place] [address], [place] [address] Jun, [facility] [address] [id number] [address] [place] [address], [place] [address] Jun, [facility] [address] [id number] [address] [place] [address], [place] [address] Jun, [facility] [address] [id number] [address] [place] [address], [place] [address] Jun, [facility] [address] [id number] [address] [place] [address], [place] [address] Jun, [facility] [address] [id number] [address] [place] [address], [place] [address] Jun, [facility] [address] [id number] [address] [place] [address], [place] [address] Jun, [facility] [address] [id number] [address] [place] [address], [place] [address] Jun, [facility] [address] [id number] [address] [place] [address], [place] [address] Jun, [facility] [address] [id number] [address] [place] [address], [place] [address] 26 May, 2012 [facility] [address] [id number] [address] [place] [address], [place] [address] 24 May, 2012 [facility] [address] [id number] [address] [place] [address], [place] [address] 18 May, 2012 [facility] [address] [id number] [address] [place] [address], [place] [address] 30 Apr, 2012 [facility] [address] [id number] [address] [place] [address], [place] [address] Apr, [facility] [address] [id number] [address] [place] [address], [place] [address] Apr, [facility] [address] [id number] [address] [place] [address], [place] [address] 14 Apr, 2012 [facility] [address] [id number] [address] [place] [address], [place] [address] Apr, [facility] [address] [id number] [address] [place] [address], [place] [address] Apr, [facility] [address] [id number] [address] [place] [address], [place] [address] Mar, [facility] [address] [id number] [address] [place] [address], [place] [address] Mar, [facility] [address] [id number] [address] [place] [address], [place] [address] Mar, [facility] [address] [id number] [address] [place] [address], [place] [address] Mar, [facility] [address] [id number] [address] [place] [address], [place] [address] Feb, [facility] [address] [id number] [address] [place] [address], [place] [address] Feb, [facility] [address] [id number] [address] [place] [address], [place] [address] Feb, [facility] [address] [id number] [address] [place] [address], [place] [address] Feb, [facility] [address] [id number] [address] [place] [address], [place] [address] Feb, [facility] [address] [id number] [address] [place] [address], [place] [address] January, [facility] [address] [id number] [address] [place] [address], [place] [address] January, [facility] [address] [id number] [address] [place] [address], [place] [address] January, [facility] [address] [id number] [address] [place] [address], [place] [address] January, [facility] [address] [id number] [address] [place] [address], [place] [address] January, [facility] [address] [id number] [address] [place] [address], [place] [address] January, [facility] [address] [id number] [address] [place] [address], [place] [address] Dec, [facility] [address] [id number] [address] [place] [address], [place] [address] 24 Dec, 2011 [facility] [address] [id number] [address] [place] [address], [place] [address] 17 Dec, 2011 [facility] [address] [id number] [address] [place] [address], [place] [address] 09 Dec, 2011 [facility] [address] [id number] [address] [place] [address], [place] [address] 06 Dec, 2011 [facility] [address] [id number] [address] [place] [address], [place] [address] 27 Nov, 2011 [facility] [address] [id number] [address] [place] [address], [place] [address] 14 Nov, 2011 [facility] [address] [id number] [address] [place] [address], [place] [address] 12 Nov, 2011 [facility] [address] [id number] [address] [place] [address], [place] [address] 07 Nov, 2011 [facility] [address] [id number] [address] [place] [address], [place] [address] 29 Oct, 2011 [facility] [address] [id number] [address] [place] [address], [place] [address] 28 Oct, 2011 [facility] [address] [id number] [address] [place] [address], [place] [address] 24 Oct, 2011 [facility] [address] [id number] [address] [place] [address], [place] [address] 13 Oct, 2011 [facility] [address] [id number] [address] [place] [address], [place] [address] 08 Oct, 2011 [facility] [address] [id number] [address] [place] [address], [place] [address] 31 Sep, 2011 [facility] [address] [id number] [address] [place] [address], [place] [address] 30 Sep, 2011 [facility] [address] [id number] [address] [place] [address], [place] [address] Sep, [facility] [address] [id number] [address] [place] [address], [place] [address] Sep, [facility] [address] [id number] [address] [place] [address], [place] [address] Sep, [facility] [address] [id number] [address] [place] [address], [place] [address] Sep, [facility] [address] [id number] [address] [place] [address], [place] [address] Aug, [facility] [address] [id number] [address] [place] [address], [place] [address] Aug, [facility] [address] [id number] [address] [place] [address], [place] [address] Aug, [facility] [address] [id number] [address] [place] [address], [place] [address] Jul, [facility] [address] [id number] [address] [place] [address] Jul, [facility] [address] [id number] [address] [place] [address], [place] [address] Jul, [facility] [address] [id number] [address] [place] [address] Jul, [facility] [address] [id number] [address] [place] [address] Jun, [facility] [address] [id number] [address] [place] [address] 31 Jun, 2011 [facility] [address] [id number] [address] [place] [address], [place] [address] 18 Jun, 2011 [facility] [address] [id number] [address] [place] [address] 10 Jun, 2011 [facility] [address] [id number] [address] [place] [address] Jun, [facility] [address] [id number] [address] [place] [address], [place] [address] 10 Jun, 2011 [facility] [address] [id number] [address] [place] [address], [place] [address] 11 Mar, 2011 [facility] [address] [id number] [address] [place] [address], [place] [address] 18 Dec, 2010 [facility] [address] [id number] [address] [place] [address], [place] [address] 11 Dec, 2010 [facility] [address] [id number] [address] [place] [address], [place] [address] 18 Nov, 2010 [facility] [address] [id number] [address] [place] [address], [place] [address] 16 Nov, 2010 [facility] [address] [id number] [address] [place] [address], [place] [address] 10 Sep, 2010 [facility] [address] [id number] [address] [place] [address], [place] [address] 31 Aug, 2010 [facility] [address] [id number] [address] [place] [address], [place] [address] 29 Aug, 2010 [facility] [address] [id number] [address] [place] [address], [place] [address] 29 Aug, 2010 [facility] [address] [id number] [address] [place] [address], [place] [address] 29 Aug, 2010 [facility] [address] [id number] [address] [place] [address], [place] [address] 27 Aug, 2010 [facility] [address] [id number] [address] [place] [address], [place] [address] 14 Aug, 2010 [facility] [address] [id number] [address] [place] [address], [place] [address] 08 Aug, 2010 [facility] [address] [id number] [address] [place] [address], [place] [address] 08 Aug, 2010 [facility] [address] [id number] [address] [place] [address], [place] [address] Aug, [facility] [address] [id number] [address] [place] [address], [place] [address] Aug, [facility] [address] [id number] [address] [place] [address], [place] [address] Aug, [facility] [address] [id number] [address] [place] [address], [place] [address] Aug, [facility] [address] [id number] [address] [place] [address], [place] [address] Jul, [facility] [address] [id number] [address] [place] [address], [place] [address] Jul, [facility] [address] [id number] [address] [place] [address], [place] [address] Jul, [facility] [address] [id number] [address] [place] [address], [place] [address] Jul, [facility] [address] [id number] [address] [place] [address], [place] [address] Jul, [facility] [address] [id number] [address] [place] [address], [place] [address] Jul, [facility] [address] [id number] [address] [place] [address], [place] [address] Jun, [facility] [address] [id number] [address] [place] [address], [place] [address] Jun, [facility] [address] [id number] [address] [place] [address] Jun, [facility] [address] [id number] [address] [place] [address], [place] [address] Jun, [facility] [address] [id number] [address] [place] [address], [place] [address] Apr, [facility] [address] [id number] [address] [place] [address] Mar, [facility] [address] [id number] [address] [place] [address] Feb, [facility] [address] [id number] [address] [place] [address] January, [facility] [address] [id number] [address] [place] [address] 15 Dec, 2009 [facility] [address] [id number] [address] [place] [address] Nov, [facility] [address] [id number] [address] [place] [address] Aug, [facility] [address] [id number] [address] [place] [address], [place] [address] Aug, [facility] [address] [id number] [address] [place] [address] Aug, [facility] [address] [id number] [address] [place] [address] Jul, [facility] [address] [id number] [address] [place] [address] Jul, [facility] [address] [id number] [address] [place] [address] Jul, [facility] [address] [id number] [address] [place] [address] 30 Jun, 2009 [facility] [address] [id number] [address] [place] [address] 29 Jun, 2009 [facility] [address] [id number] [address] [place] [address] Jun, [facility] [address] [id number] [address] [place] [address] 22 Jun, 2009 [facility] [address] [id number] [address] [place] [address] Jun, [facility] [address] [id number] [address] [place] [address] Jun, [facility] [address] [id number] [address] [place] [address] Apr, [facility] [address] [facility] [id number] [address] [place] [address] Apr, [facility] [address] [facility] [id number] [address] [place] [address] Feb, [facility] [address] [facility] [id number] [address] [place] [address] January, [facility] [address] [facility] [id number] [address] [place] [address] Dec, IMMUNIZATIONS No Known Immunizations SOCIAL HISTORY [...] 2009 Surgical History colonoscopy 2009 ([facility]), 2013 ([facility] ) Surgical History heart cath: CAD w/ [...] inability to urinate 09/16/15 Hospitalization History [facility] health ea rly 1999's Hospitalization History hyperkalemia 10/2017 Hospitalization History fluid in lung
--- OUTSIDE RECORDS SUMMARY | 2020-03-01 18:16 | XMS REPORT ---
Author Author Michele WASHBURN Organization [facility] Address [address] [place] [address] Care Team Providers Care Seasonal Warehouse Associate Name Role Phone NOEMI WASHBURN Unavailable PROBLEMS Type Condition ICD9-CM Code DAW20-CT Code Onset Dates Condition S tatus SNOMED Code Problem Cough R05 Active 74102580 Problem Benign prostatic hyperplasia with lower urinary tract symptoms, unspecified morphology N40.1 Active 98526 6007 Problem Eustachian tube dysfunction, unspecified laterality H69.80 Active 93198153 Problem Chronic pain G89.29 Active 1882063 1 Problem DM neuro manif type II E11.49 Active 11329241 Problem Diabetes E11.9 Active 09676235 Problem Leukocytosis D72.829 Active 5096153 06 Problem Falling R29.6 Active 961110490 Problem Pressure ulcer of other site, stage 3 L89.893 Active 206013432 Problem 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 Active 017303432 Problem Eye exam abnormal R93.8 Active 16 7332812 Problem Dysuria R30.0 Active 23966355 Problem Hypokalemia E87.6 Active 50956133 Problem Morbid obesity E66.01 Active 56642 6002 Problem Anxiety F41.9 Active 37177330 Problem Diabetic polyneuropathy associated with type 2 d iabetes mellitus E11.42 Active 96723299 Problem Essential hypertension I10 Active 83524208 Problem Bilateral primary osteoarthritis of knee M17.0 Active 967169212 Problem Polyneuropathy associated with underlying disease G63 Active 679473616 Problem Anemia of chronic illness D63.8 Acti ve 452340461 Problem Lymphocytosis D72.820 Active 350144 09 Problem Retinal edema H35.81 Active 488599 6 Problem Chronic lymphocytic leukemia C91.10 A ctive 86238101 Problem Bipolar disorder, in partial remission, most rec ent episode depressed F31.75 Active 38220647 Problem Pure hypercholesterolemia E78.00 Acti ve 349230702 Problem Primary osteoarthritis of right knee M17.11 Active 285205883250476 Problem Bipolar disorder F31.9 Active 137 78998 Problem Bipolar I disorder, most recent episode (or curr ent) mixed, moderate F31.62 Active 18620295 Problem Chronic diastolic (congestive) heart failure I50.3 2 Active 760383698 Problem Reactive airway disease J45.909 Active 856121610552 Problem Insomnia, unspecified type G47.00 Act sharon 707657425 Problem Other chronic pain G89.29 Active 8 9963606 Problem Other iron deficiency anemia D50.8 A ctive 25279225 Problem Mild cognitive impairment G31.84 Acti ve 896712137 Problem Skin cancer C44.90 Active 80242976 7 ALLERGIES No Information ENCOUNTERS Encounter Location Date Diagnosis [place] [address] [address] [facility] [id number] [address] [place] [address] Apr, [place] [address] [place] [id number] [address] [place] [address] Apr, [place] [address] [address] [facility] [id number] [address] [place] [address] Mar, Bipolar disorder F31.9 and C hronic pain G89.29 [place] [address] [address] [facility] [id number] [address] [place] [address] Feb, Bipolar disorder F31.9 [place] [address] [facility] [id number] [address] [place] [id number] 17 Feb, 2019 Cellulitis of right upper ex tremity L03.113 and Skin abrasion T14.8XXA [facility] [address] [facility] [id number] [address] [place] [id number] 17 Feb, 2019 Bipolar disorder, in partial remission, most recent episode depressed F31.75 and Mild cognitive impairment G31.84 [place] [address] [address] [facility] [id number] [address] [place] [id number] 13 Feb, 2019 Chronic pain G89.29 [place] [address] [facility] [id number] [address] [place] [phone] 03 Feb, 2019 Bipolar disorder, in partial remission, most recent episode depressed F31.75 and Mild cognitive impairment G31.84 [facility] [address] [id number] [address] [place] [id number] January, Bipolar disorder, in partial remission, most recent episode depressed F31.75 and Mild cognitive impairment G31.84 [facility] [address] [id number] [address] [place] [address] January, Chronic pain G89.29 and Bipo lar disorder F31.9 [facility] [address] [id number] [address] [place] [address] January, Bipolar disorder, in partial remission, most recent episode depressed F31.75 and Mild cognitive impairment G31.84 [facility] [address] [id number] [address] [place] [id number] Dec, [facility] [address] [id number] [address] [place] [address] Dec, Chronic pain G89.29 and Bipo lar disorder F31.9 [facility] [address] [id number] [address] [place] [id number] Dec, Edema of both lower extremit ies R60.0 [facility] [address] [id number] [address] [place] [address] Dec, Bipolar disorder F31.9 [facility] [address] [id number] [address] [place] [id number] Dec, Bipolar disorder, in partial remission, most recent episode depressed F31.75 and Mild cognitive impairment G31.84 [facility] [address] [id number] [address] [place] [phone] Nov, [facility] [address] [id number] [address] [place] [id number] Nov, Chronic pain G89.29 [facility] [address] [id number] [address] [place] [address] Nov, Bipolar disorder, in partial remission, most recent episode depressed F31.75 and Mild cognitive impairment G31.84 [place] [address] [place] [id number] [address] [place] [address] Nov, Bipolar disorder F31.9 [place] [address] [place] [id number] [address] [place] [address] 04 Nov, 2018 [facility] ; Polyneuropathy associated [...] N40.1 and Essential hypertension I10 [place] [address] [place] [id number] [address] [place] [address] Oct, Chronic pain G89.29 [place] [id number] [place] [id number] 18 Oct, 2018 Diabetes E11.9 [place] [address] [place] [id number] [address] [place] [id number] Oct, Bipolar I disorder, most rec ent episode (or current) mixed, moderate F31.62 and Mild cognitive impairment G31.84 [place] [id number] [place] [address] Oct, Bipolar I disorder, most rec ent episode (or current) mixed, moderate F31.62 and Mild cognitive impairment G31.84 [place] [address] [place] [id number] [address] [place] [address] Sep, Bipolar I disorder, most rec ent episode (or current) mixed, moderate F31.62 and Mild cognitive impairment G31.84 [place] [address] [place] [id number] [address] [place] [address] Sep, [facility] [address] [id number] [address] [place] [address] Sep, Diabetes E11.9 ; Hypoxia R09 .02 ; Hyperglycemia R73.9 ; Therapeutic drug monitoring Z51.81 ; BMI 50.0-59.9, adult Z68.43 and Skin cancer C44.90 [place] [address] [address] [facility] [id number] [address] [place] [address] Sep, Chronic pain G89.29 [place] [address] [id number] [address] [place] [address] Sep, Bipolar I disorder, most rec ent episode (or current) mixed, moderate F31.62 [place] [address] [facility] [id number] [address] [place] [phone] Sep, [place] [address] [facility] [id number] [address] [place] [address] Sep, [place] [address] [facility] [id number] [address] [place] [address] Aug, Chronic pain G89.29 [place] [address] [id number] [address] [place] [address] Aug, Bipolar I disorder, most rec ent episode (or current) mixed, moderate F31.62 [place] [address] [facility] [id number] [address] [place] [address] Aug, Bipolar I disorder, most rec ent episode (or current) mixed, moderate F31.62 and Mild cognitive impairment G31.84 [place] [address] [id number] [address] [place] [address] Jul, [place] [address] [facility] [id number] [address] [place] [address] Jul, Chronic pain G89.29 [facility] [address] [id number] [address] [place] [id number] Jul, Bipolar I disorder, most rec ent episode (or current) mixed, moderate F31.62 and Mild cognitive impairment G31.84 [facility] [address] [facility] [id number] [address] [place] [id number] Jul, Bipolar I disorder, most rec ent episode (or current) mixed, moderate F31.62 and MCI (mild cognitive impairment) G31.84 [facility] [address] [facility] [id number] [address] [place] [address] Jul, [facility] [address] [facility] [id number] [address] [place] [address] Jul, [place] [address] [address] [facility] [id number] [address] [place] [address] Jul, Bipolar I disorder, most rec ent episode (or current) mixed, moderate F31.62 [place] [address] [facility] [id number] [address] [place] [address] Jul, Chronic pain G89.29 [place] [address] [facility] [id number] [address] [place] [address] Jun, Bipolar I disorder, most rec ent episode (or current) mixed, moderate F31.62 [place] [address] [place] [id number] [address] [place] [phone] Jun, Pre-procedure lab exam Z01.8 12 [place] [address] [place] [id number] [address] [place] [phone] Jun, [facility] [address] [id number] [place] [id number] Jun, [place] [address] [facility] [id number] [address] [place] [address] Jun, [place] [address] [place] [id number] [address] [place] [address] Jun, Forgetfulness R68.89 ; Pre-s yncope R55 ; Localized edema R60.0 ; Other iron deficiency anemia D50.8 and BMI 50.0-59.9, adult Z68.43 [place] [address] [place] [id number] [address] [place] [address] 05 Jun, 2018 Chronic pain G89.29 [facility] [address] [place] [id number] [address] [place] [address] 05 Jun, 2018 Chronic pain G89.29 [facility] [address] [place] [id number] [address] [place] [address] Jun, Bipolar I disorder, most rec ent episode (or current) mixed, moderate F31.62 [facility] [address] [place] [id number] [address] [place] [address] May, Chronic pain G89.29 [facility] [address] [address] Apr, [place] [address] [place] [id number] [place] [address] Apr, Chronic pain G89.29 [place] [address] [address] Apr, Primary osteoarthritis of ri t knee M17.11 [place] [address] [address] Mar, [place] [address] [address] Mar, BMI 50.0-59.9, adult Z68.43 and Bipolar disorder, in partial remission, most recent episode depressed F31.75 [place] [address] [place] [id number] [place] [address] Mar, Diabetes E11.9 ; Pure hyperc holesterolemia E78.00 ; Essential hypertension I10 ; Nausea with vomiting, unspecified R11.2 and Headache, unspecified headache type R51 [place] [address] [place] [id number] [place] [address] Mar, Bipolar I disorder, most rec ent episode (or current) mixed, moderate F31.62 [place] [address] [address] Mar, Bipolar I disorder, most rec ent episode (or current) mixed, moderate F31.62 [facility] [address] [facility] [id number] [address] [place] [address] Mar, Chronic pain G89.29 [facility] [address] [facility] [id number] [address] [place] [address] Mar, Bipolar I disorder, most rec ent episode (or current) mixed, moderate F31.62 [place] [address] [facility] [id number] [address] [place] [id number] Feb, Bipolar I disorder, most rec ent episode (or current) mixed, moderate F31.62 [place] [address] [place] [id number] [address] [place] [address] Feb, Chronic pain G89.29 [place] [address] [place] [id number] [place] [address] Feb, Decubitus ulcer of right josselin t, stage 3 L89.893 and BMI 50.0-59.9, adult Z68.43 [place] [address] [facility] [id number] [address] [place] [address] Feb, Bipolar I disorder, most rec ent episode (or current) mixed, moderate F31.62 [place] [address] [facility] [id number] [address] [place] [address] Feb, [facility] [address] [facility] [id number] [address] [place] [address] January, [facility] [address] [facility] [id number] [address] [place] [address] January, Chronic pain G89.29 [facility] [address] [facility] [id number] [address] [place] [address] January, Bipolar I disorder, most rec ent episode (or current) mixed, moderate F31.62 [place] [address] [facility] [id number] [address] [place] [address] January, Bipolar I disorder, most rec ent episode (or current) mixed, moderate F31.62 [place] [address] [facility] [id number] [address] [place] [address] Dec, Bipolar I disorder, most rec ent episode (or current) mixed, moderate F31.62 and BMI 50.0-59.9, adult Z68.43 [place] [address] [place] [id number] [address] [place] [phone] Dec, Bipolar I disorder, most rec ent episode (or current) mixed, moderate F31.62 [place] [address] [facility] [id number] [address] [place] [address] Dec, Chronic pain G89.29 [place] [address] [facility] [id number] [address] [place] [address] Dec, DM neuro manif type II E11.4 9 ; Right flank pain R10.9 ; 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 ; Encounter for medication monitoring Z51.81 and BMI 50.0-59.9, adult Z68.43 [place] [address] [place] [id number] [address] [place] [address] Dec, Bipolar I disorder, most rec ent episode (or current) mixed, moderate F31.62 [place] [address] [place] [id number] [address] [place] [address] Nov, Bipolar I disorder, most rec ent episode (or current) mixed, moderate F31.62 [place] [address] [facility] [id number] [address] [place] [address] Nov, Chronic pain G89.29 [place] [address] [place] [id number] [place] [address] Nov, Bipolar I disorder, most rec ent episode (or current) mixed, moderate F31.62 [place] [address] [facility] [id number] [address] [place] [address] Nov, Hypokalemia E87.6 [place] [address] [place] [id number] [address] [place] [address] Nov, Bipolar I disorder, most rec ent episode (or current) mixed, moderate F31.62 [place] [address] [place] [id number] [place] [address] Oct, Chronic pain G89.29 [place] [address] [address] Oct, BMI 50.0-59.9, adult Z68.43 and Bipolar I disorder, most recent episode (or current) mixed, moderate F31.62 [place] [address] [address] Oct, Bipolar I disorder, most rec ent episode (or current) mixed, moderate F31.62 [place] [address] [address] Oct, [place] [address] [address] Oct, Hypokalemia E87.6 [place] [address] [address] Oct, DM neuro manif type II E11.4 9 [place] [address] [address] Oct, Bipolar I disorder, most rec ent episode (or current) mixed, moderate F31.62 [place] [address] [place] [id number] [address] [place] [address] Oct, Bipolar I disorder, most rec ent episode (or current) mixed, moderate F31.62 [place] [address] [place] [id number] [address] [place] [address] 14 Oct, 2017 Hyperkalemia E87.5 ; Falling R29.6 ; BMI 50.0-59.9, adult Z68.43 and Acute left ankle pain M25.572 [place] [address] [place] [id number] [place] [address] 08 Oct, 2017 DM neuro manif type II E11.4 9 [place] [id number] [place] [address] Oct, [place] [address] [place] [id number] [place] [address] Sep, Chronic pain G89.29 [place] [address] [address] Sep, [place] [address] [address] Sep, Bilateral primary osteoarthr itis of knee M17.0 [place] [address] [address] Sep, Generalized edema R60.1 [place] [address] [address] 16 Sep, 2017 Bipolar I disorder, most rec ent episode (or current) mixed, moderate F31.62 [place] [address] [address] 15 Sep, 2017 Hypoxia R09.02 ; Other hyper volemia E87.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 ; Anemia of chronic illness D63.8 and BMI 50.0- 59.9, adult Z68.43 [place] [address] [place] [id number] [place] [address] Sep, [address] [address] Sep, Bipolar I disorder, most rec ent episode (or current) mixed, moderate F31.62 [place] [address] [address] Aug, Chronic pain G89.29 [facility] [address] [facility] [id number] [address] [place] [address] Aug, Generalized edema R60.1 [facility] [address] [facility] [id number] [address] [place] [address] Aug, [facility] [address] [facility] [id number] [address] [place] [address] Aug, [facility] [address] [facility] [id number] [address] [place] [address] 14 Aug, 2017 Bipolar I disorder, most rec ent episode (or current) mixed, moderate F31.62 [place] [address] [facility] [id number] [address] [place] [address] Aug, Bipolar I disorder, most rec ent episode (or current) mixed, moderate F31.62 [place] [address] [facility] [id number] [address] [place] [address] 04 Aug, 2017 Chronic pain G89.29 [facility] [address] [facility] [id number] [address] [place] [address] 30 Jul, 2017 Bipolar I disorder, most rec ent episode (or current) mixed, moderate F31.62 [facility] [address] [facility] [id number] [address] [place] [address] Jul, Bipolar I disorder, most rec ent episode (or current) mixed, moderate F31.62 and BMI 60.0-69.9, adult Z68.44 [facility] [address] [facility] [id number] [address] [place] [phone] 16 Jul, 2017 Bipolar I disorder, most rec ent episode (or current) mixed, moderate F31.62 [place] [address] [facility] [id number] [address] [place] [address] 06 Jul, 2017 Chronic pain G89.29 [facility] [address] [facility] [id number] [address] [place] [address] 02 Jul, 2017 Bipolar I disorder, most rec ent episode (or current) mixed, moderate F31.62 [facility] [address] [id number] [address] [place] [address] 18 Jun, 2017 Polyneuropathy associated wi th underlying disease G63 and Diabetes E11.9 [facility] [address] [id number] [address] [place] [id number] 16 Jun, 2017 Bipolar I disorder, most rec ent episode (or current) mixed, moderate F31.62 [facility] [address] [id number] [address] [place] [address] Jun, Chronic pain G89.29 [facility] [address] [id number] [address] [place] [address] May, Bipolar I disorder, most rec ent episode (or current) mixed, moderate F31.62 [facility] [address] [facility] [id number] [address] [place] [address] 21 May, 2017 Bipolar I disorder, most rec ent episode (or current) mixed, moderate F31.62 [facility] [address] [id number] [address] [place] [address] 20 May, 2017 Diabetic polyneuropathy asso ciated with type 2 diabetes mellitus E11.42 [facility] [address] [id number] [address] [place] [address] 18 May, 2017 Bipolar I disorder, most rec ent episode (or current) mixed, moderate F31.62 [facility] [address] [facility] [id number] [address] [place] [phone] 13 May, 2017 Bipolar I disorder, most rec ent episode (or current) mixed, moderate F31.62 [facility] [address] [id number] [address] [place] [address] May, Chronic pain G89.29 [facility] [address] [facility] [id number] [address] [place] [address] Apr, Bipolar I disorder, most rec ent episode (or current) mixed, moderate F31.62 [facility] [address] [facility] [id number] [address] [place] [address] Apr, [facility] [address] [id number] [address] [place] [address] Apr, Chronic pain G89.29 and DM n euro manif type II E11.49 [facility] [address] [facility] [id number] [address] [place] [address] Apr, [facility] [address] [facility] [id number] [address] [place] [address] Apr, Bipolar I disorder, most rec ent episode (or current) mixed, moderate F31.62 [facility] [address] [facility] [id number] [address] [place] [address] Apr, Chronic pain G89.29 [facility] [address] [facility] [id number] [address] [place] [address] Apr, Iliotibial band syndrome, le ft M76.32 [facility] [address] [facility] [id number] [address] [place] [id number] Apr, Bipolar I disorder, most rec ent episode (or current) mixed, moderate F31.62 [facility] [address] [facility] [id number] [address] [place] [id number] Mar, Bipolar I disorder, most rec ent episode (or current) mixed, moderate F31.62 [facility] [address] [facility] [id number] [address] [place] [id number] Mar, Bipolar I disorder, most rec ent episode (or current) mixed, moderate F31.62 [facility] [address] [facility] [id number] [address] [place] [id number] Mar, [facility] [address] [facility] [id number] [address] [place] [id number] Mar, Bipolar I disorder, most rec ent episode (or current) mixed, moderate F31.62 [facility] [address] [facility] [id number] [address] [place] [id number] Mar, Chronic pain G89.29 [facility] [address] [id number] [address] [place] [id number] Mar, Bipolar I disorder, most rec ent episode (or current) mixed, moderate F31.62 [facility] [address] [id number] [address] [place] [address] Mar, Bipolar I disorder, most rec ent episode (or current) mixed, moderate F31.62 [facility] [address] [id number] [address] [place] [id number] Mar, Acute pain of left knee M25. 562 ; Left hip pain M25.552 ; Generalized edema R60.1 and Tongue swelling R22.0 [facility] [address] [id number] [address] [place] [id number] Mar, [facility] [address] [id number] [address] [place] [address] Feb, Chronic pain G89.29 [facility] [address] [id number] [address] [place] [address] Feb, Diabetes E11.9 [facility] [address] [id number] [address] [place] [address] January, Chronic pain G89.29 [facility] [address] [facility] [id number] [address] [place] [address] January, [facility] [address] [id number] [address] [place] [id number] January, Bipolar I disorder, most rec ent episode (or current) mixed, moderate F31.62 [facility] [address] [id number] [address] [place] [address] Dec, Bipolar I disorder, most rec ent episode (or current) mixed, moderate F31.62 [facility] [address] [facility] [id number] [address] [place] [address] Dec, Chronic pain G89.29 [facility] [address] [id number] [address] [place] [address] Dec, Bipolar I disorder, most rec ent episode (or current) mixed, moderate F31.62 [facility] [address] [place] [id number] [address] [place] [address] Dec, Diabetes E11.9 ; Essential h ypertension I10 ; Chronic pain G89.29 and Morbid obesity E66.01 [facility] [address] [place] [id number] [address] [place] [id number] Dec, [facility] [address] [facility] [id number] [address] [place] [address] Dec, Bipolar I disorder, most rec ent episode (or current) mixed, moderate F31.62 [facility] [address] [place] [id number] [address] [place] [address] Dec, Bipolar I disorder, most rec ent episode (or current) mixed, moderate F31.62 [facility] [address] [place] [id number] [address] [place] [id number] Nov, Chronic pain G89.29 [facility] [address] [place] [id number] [address] [place] [address] Nov, Bipolar I disorder, most rec ent episode (or current) mixed, moderate F31.62 [facility] [address] [place] [id number] [address] [place] [address] Nov, [facility] [address] [facility] [id number] [address] [place] [id number] Nov, Bipolar I disorder, most rec ent episode (or current) mixed, moderate F31.62 [facility] [address] [place] [id number] [address] [place] [address] Nov, Bipolar I disorder, most rec ent episode (or current) mixed, moderate F31.62 [facility] [address] [place] [id number] [address] [place] [id number] Nov, [facility] [address] [place] [id number] [address] [place] [address] Nov, [facility] [address] [facility] [id number] [address] [place] [id number] Nov, [facility] [address] [facility] [id number] [address] [place] [address] Oct, Chronic pain G89.29 [facility] [address] [facility] [id number] [address] [place] [address] Oct, Bipolar I disorder, most rec ent episode (or current) mixed, moderate F31.62 [facility] [address] [facility] [id number] [address] [place] [address] Oct, [facility] [address] [facility] [id number] [address] [place] [address] Oct, Chronic pain G89.29 ; Diabet es E11.9 ; Anxiety F41.9 and 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 [facility] [address] [facility] [id number] [address] [place] [id number] Oct, [facility] [address] [facility] [id number] [address] [place] [address] Oct, Diabetes E11.9 [facility] [address] [facility] [id number] [address] [place] [id number] Oct, Bipolar I disorder, most rec ent episode (or current) mixed, moderate F31.62 [facility] [address] [facility] [id number] [address] [place] [address] Sep, Chronic pain G89.29 [facility] [address] [facility] [id number] [address] [place] [address] Sep, Chronic pain G89.29 [facility] [address] [facility] [id number] [address] [place] [address] Aug, Chronic pain G89.29 [facility] [address] [facility] [id number] [address] [place] [id number] Jul, [facility] [address] [facility] [id number] [address] [place] [address] Jul, Diabetes E11.9 [facility] [address] [facility] [id number] [address] [place] [address] Jul, Chronic pain G89.29 [facility] [address] [facility] [id number] [address] [place] [address] Jul, Bipolar I disorder, most rec ent episode (or current) mixed, moderate F31.62 [facility] [address] [facility] [id number] [address] [place] [id number] Jun, Bipolar I disorder, most rec ent episode (or current) mixed, moderate F31.62 [place] [address] [facility] [id number] [address] [place] [id number] Jun, [facility] [address] [facility] [id number] [address] [place] [address] Jun, Bipolar I disorder, most rec ent episode (or current) mixed, moderate F31.62 [place] [id number] [facility] [id number] [address] [place] [id number] 30 May, 2016 Insomnia, unspecified type G 47.00 [facility] [address] [facility] [id number] [address] [place] [address] May, Bipolar I disorder, most rec ent episode (or current) mixed, moderate F31.62 [facility] [address] [facility] [id number] [address] [place] [id number] 14 May, 2016 [facility] [address] [facility] [id number] [address] [place] [id number] 08 May, 2016 Bipolar I disorder, most rec ent episode (or current) mixed, moderate F31.62 [facility] [address] [facility] [id number] [address] [place] [phone] 06 May, 2016 Diabetes E11.9 and Essential hypertension I10 [facility] [address] [facility] [id number] [address] [place] [address] Apr, Chronic pain G89.29 [facility] [address] [id number] [address] [place] [address] Apr, Bipolar I disorder, most rec ent episode (or current) mixed, moderate F31.62 [facility] [address] [facility] [id number] [address] [place] [address] Apr, [facility] [address] [facility] [id number] [address] [place] [address] Apr, [facility] [address] [facility] [id number] [address] [place] [address] Mar, Chronic pain G89.29 ; Headac he, unspecified headache type R51 ; Neuropathy G62.9 ; Pain of right hip joint M25.551 and Essential hypertension I10 [place] [address] [facility] [id number] [address] [place] [address] Mar, Chronic pain G89.29 [facility] [address] [facility] [id number] [address] [place] [address] Mar, Bipolar I disorder, most rec ent episode (or current) mixed, moderate F31.62 [place] [address] [facility] [id number] [address] [place] [address] Feb, Bipolar I disorder, most rec ent episode (or current) mixed, moderate F31.62 and Insomnia, unspecified type G47.00 [place] [address] [facility] [id number] [address] [place] [address] Feb, Chronic pain G89.29 [facility] [address] [facility] [id number] [address] [place] [address] Feb, Bipolar I disorder, most rec ent episode (or current) mixed, moderate F31.62 [place] [address] [facility] [id number] [address] [place] [address] January, Bipolar I disorder, most rec ent episode (or current) mixed, moderate F31.62 [place] [address] [facility] [id number] [address] [place] [address] January, Chronic pain G89.29 [facility] [address] [facility] [id number] [address] [place] [address] January, Chronic pain G89.29 and Esse ntial hypertension I10 [facility] [address] [facility] [id number] [address] [place] [id number] January, Bipolar I disorder, most rec ent episode (or current) mixed, moderate F31.62 [facility] [address] [facility] [id number] [address] [place] [address] Dec, [facility] [address] [facility] [id number] [address] [place] [phone] Dec, [facility] [address] [place] [id number] [address] [place] [id number] Dec, [facility] [address] [facility] [id number] [address] [place] [address] Dec, [facility] [address] [facility] [id number] [address] [place] [address] Nov, Reactive airway disease J45. 909 [facility] [address] [place] [id number] [address] [place] [address] Nov, [facility] [address] [facility] [id number] [address] [place] [address] Nov, [facility] [address] [facility] [id number] [address] [place] [address] Nov, [facility] [address] [facility] [id number] [address] [place] [address] Nov, [facility] [address] [place] [id number] [address] [place] [address] Nov, Onychomycosis B35.1 ; Hammer toe M20.40 ; [place] or callus L84 and DM neuro manif type II E11.49 [facility] [address] [address] Nov, Chronic pain G89.29 ; Leukoc ytosis D72.829 and Diabetes E11.9 [place] [address] [address] Nov, [place] [address] [address] Oct, Bronchitis J40 [place] [address] [address] Oct, [place] [address] [address] Oct, [place] [address] [address] Oct, Mastoiditis, unspecified lat erality H70.90 and Type 2 diabetes mellitus with complication E11.8 [place] [address] [address] Sep, [place] [address] [address] Sep, Dysuria R30.0 ; Cough R05 ; Benign prostatic hyperplasia with lower urinary tract symptoms, unspecified morphology N40.1 ; Hypokalemia E87.6 and Eustachian tube dysfunction, unspecified laterality H69.80 [place] [address] [address] Sep, Moderate mixed bipolar I dis order F31.62 [place] [address] [address] Sep, Hypokalemia E87.6 [place] [address] [address] Sep, [place] [address] [address] Sep, Upper respiratory tract infe ction, unspecified type J06.9 [facility] [address] [id number] [address] [place] [address] Aug, [facility] [address] [id number] [address] [place] [address] Aug, Dysuria R30.0 [facility] [address] [id number] [address] [place] [address] Aug, [facility] [address] [id number] [address] [place] [address] Jul, [facility] [address] [id number] [address] [place] [address] Jul, [facility] [address] [id number] [address] [place] [address] Jul, [facility] [address] [id number] [address] [place] [address] Jul, [facility] [address] [id number] [address] [place] [address] Jun, [facility] [address] [id number] [address] [place] [address] Jun, [facility] [address] [id number] [address] [place] [address] Jun, [facility] [address] [facility] [id number] [address] [place] [address] May, [facility] [address] [id number] [address] [place] [address] May, Bipolar I disorder, most rec ent episode (or current) mixed, moderate 296.62 [facility] [address] [id number] [address] [place] [id number] 16 May, 2015 [facility] [address] [facility] [id number] [address] [place] [address] May, Bipolar I disorder, most rec ent episode (or current) mixed, moderate 296.62 and Major depressive disorder, recurrent episode, severe, specified as with psychotic behavior 296.34 [facility] [address] [id number] [address] [place] [address] May, Bipolar I disorder, most rec ent episode (or current) mixed, moderate 296.62 [facility] [address] [id number] [address] [place] [address] May, [facility] [address] [id number] [address] [place] [id number] Apr, [facility] [address] [id number] [address] [place] [address] Apr, [facility] [address] [facility] [id number] [address] [place] [address] Apr, Unspecified disorder of kidn ey and ureter 593.9 and Diabetes mellitus type 2, uncontrolled 250.02 [facility] [address] [facility] [id number] [address] [place] [id number] Apr, [facility] [address] [id number] [address] [place] [address] Apr, [facility] [address] [facility] [id number] [address] [place] [address] Apr, [facility] [address] [facility] [id number] [address] [place] [address] Apr, [facility] [address] [id number] [address] [place] [address] Apr, Diabetes mellitus type II, u ncontrolled 250.02 [facility] [address] [id number] [address] [place] [address] Apr, [facility] [address] [facility] [id number] [address] [place] [address] Mar, [facility] [address] [facility] [id number] [address] [place] [address] Mar, [facility] [address] [place] [id number] [address] [place] [address] Mar, [facility] [address] [place] [id number] [address] [place] [address] Mar, Major depressive disorder, r ecurrent episode, severe, specified as with psychotic behavior 296.34 and Bipolar I disorder, most recent episode (or current) mixed, moderate 296.62 [facility] [address] [place] [id number] [address] [place] [address] Mar, Diabetes 250.00 ; Anuria 788 .5 ; Nausea and vomiting 787.01 and Diarrhea 787.91 [facility] [address] [place] [id number] [address] [place] [address] Mar, Diabetes 250.00 [facility] [address] [place] [id number] [place] [address] Mar, [facility] [address] [address] Mar, Diabetes 250.00 [facility] [address] [place] [id number] [address] [place] [address] Mar, [facility] [address] [address] Mar, [facility] [address] [place] [id number] [address] [place] [phone] Mar, [facility] [address] [place] [id number] [address] [place] [address] Mar, [facility] [address] [place] [id number] [address] [place] [address] Mar, Bipolar I disorder, most rec ent episode (or current) mixed, moderate 296.62 and Major depressive disorder, recurrent episode, severe, specified as with psychotic behavior 296.34 [facility] [address] [place] [id number] [address] [place] [address] Mar, Magnesium deficiency 275.2 ; Hypokalemia 276.8 ; Nausea & vomiting 787.01 and Diabetes mellitus type 2, uncontrolled 250.02 [facility] [address] [address] Feb, [facility] [address] [address] Feb, Bipolar I disorder, most rec ent episode (or current) mixed, moderate 296.62 [place] [address] [address] Feb, Nausea and vomiting 787.01 ; Left elbow pain 719.42 ; Anuria 788.5 and Diabetes 250.00 [place] [address] [id number] Feb, [place] [address] [address] Feb, Hypopotassemia 276.8 and Hyp okalemia 276.8 [place] [address] [address] Feb, Hypopotassemia 276.8 and Hyp okalemia 276.8 [place] [address] [address] Feb, Seborrheic keratoses 702.19 [place] [address] [address] Feb, Hypopotassemia 276.8 and Low magnesium levels 275.2 [place] [address] [address] January, [facility] [address] [address] January, [place] [address] [address] January, [facility] [address] [address] January, Scalp lesion 709.9 [facility] [address] [id number] [address] [place] [address] January, [facility] [address] [id number] [address] [place] [address] Dec, Tear of medial cartilage or meniscus of knee, current 836.0 and 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 [facility] [address] [id number] [address] [place] [address] Dec, [facility] [address] [id number] [address] [place] [address] Dec, [facility] [address] [id number] [address] [place] [address] Dec, Squamous cell carcinoma, 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 [facility] [address] [id number] [address] [place] [address] Dec, [facility] [address] [id number] [address] [place] [address] Dec, [facility] [address] [id number] [address] [place] [address] Nov, [facility] [address] [id number] [address] [place] [address] Nov, [facility] [address] [id number] [address] [place] [address] Nov, [facility] [address] [id number] [address] [place] [address] Nov, [facility] [address] [id number] [address] [place] [address] Nov, [facility] [address] [id number] [address] [place] [address] Nov, [facility] [address] [id number] [address] [place] [phone] Nov, [facility] [address] [id number] [address] [place] [address] Nov, [facility] [address] [id number] [address] [place] [address], [place] [address] Nov, [facility] [address] [id number] [address] [place] [address], [place] [address] Nov, [facility] [address] [id number] [address] [place] [address], [place] [address] Nov, [facility] [address] [id number] [address] [place] [address], [place] [address] Nov, [facility] [address] [id number] [address] [place] [address], [place] [address] Oct, 2014 [facility] [address] [id number] [address] [place] [address], [place] [address] Oct, 2014 [facility] [address] [id number] [address] [place] [address], [place] [address] Oct, 2014 [facility] [address] [id number] [address] [place] [phone] Oct, 2014 [facility] [address] [id number] [address] [place] [address], [place] [id number] Oct, 2014 [facility] [address] [id number] [address] [place] [address], [place] [id number] Oct, 2014 [facility] [address] [id number] [address] [place] [address], [place] [id number] Oct, 2014 [facility] [address] [id number] [address] [place] [id number] Oct, 2014 [facility] [address] [id number] [address] [place] [id number] Oct, [facility] [address] [id number] [address] [place] [id number] Sep, [facility] [address] [id number] [address] [place] [id number] Sep, [facility] [address] [id number] [address] [place] [address], [place] [id number] Sep, [facility] [address] [id number] [address] [place] [address], [place] [id number] Sep, [facility] [address] [id number] [address] [place] [address], [place] [id number] Sep, [facility] [address] [id number] [address] [place] [address], [place] [id number] Sep, [facility] [address] [id number] [address] [place] [address], [place] [id number] Sep, [facility] [address] [id number] [address] [place] [address], [place] [id number] Sep, [facility] [address] [id number] [address] [place] [address], [place] [id number] Sep, [facility] [address] [id number] [address] [place] [address], [place] [id number] Sep, [facility] [address] [id number] [address] [place] [address], [place] [id number] Sep, [facility] [address] [id number] [address] [place] [address], [place] [id number] Sep, [facility] [address] [id number] [address] [place] [address], [place] [id number] Sep, [facility] [address] [id number] [address] [place] [address], [place] [id number] Sep, [facility] [address] [id number] [address] [place] [address], [place] [id number] Sep, [facility] [address] [id number] [address] [place] [address], [place] [id number] Sep, [facility] [facility] [address] [id number] [address] [place] [address], [place] [address] Aug, [facility] [address] [id number] [address] [place] [address], [place] [address] Aug, [facility] [address] [id number] [facility] [place] [place] [address] Aug, [facility] [address] [id number] [address] [place] [address], [place] [address] Aug, [facility] [address] [id number] [facility] [place] [place] [address] Aug, [facility] [address] [id number] [address] [place] [address], [place] [address] Aug, [facility] [address] [id number] [facility] [place] [place] [address] Aug, [facility] [address] [id number] [address] [place] [address], [place] [address] Aug, [facility] [address] [id number] [address] [place] [address], [place] [address] Aug, [facility] [address] [id number] [address] [place] [address], [place] [address] Aug, [facility] [address] [id number] [address] [place] [address], [place] [address] Aug, [facility] [place] [id number] Aug, [facility] [address] [id number] [address] [place] [address], [place] [address] Aug, [facility] [address] [id number] [address] [place] [address], [place] [address] Aug, [facility] [address] [id number] [address] [place] [address], [place] [address] Aug, [facility] [address] [id number] [address] [place] [address], [place] [address] Aug, [facility] [address] [id number] [address] [place] [address], [place] [address] Aug, [facility] [address] [id number] [address] [place] [address], [place] [address] Aug, [facility] [address] [id number] [address] [place] [address], [place] [address] 08 Aug, 2014 [facility] [address] [id number] [address] [place] [address], [place] [address] Aug, [facility] [address] [id number] [address] [place] [address], [place] [address] Aug, [facility] [address] [id number] [address] [place] [address], [place] [address] Aug, [facility] [address] [id number] [address] [place] [address], [place] [address] Aug, [facility] [address] [id number] [address] [place] [address], [place] [address] Aug, [facility] [address] [id number] [address] [place] [address], [place] [address] Aug, [facility] [address] [id number] [address] [place] [address], [place] [address] Aug, [facility] [address] [id number] [address] [place] [address], [place] [address] Aug, [facility] [address] [id number] [address] [place] [address], [place] [address] Aug, [facility] [address] [id number] [address] [place] [address], [place] [address] Aug, [facility] [address] [id number] [address] [place] [address], [place] [address] Aug, [facility] [address] [id number] [address] [place] [address], [place] [address] Jul, [facility] [address] [id number] [address] [place] [address], [place] [address] Jul, [facility] [address] [id number] [address] [place] [address], [place] [address] Jul, [facility] [address] [id number] [address] [place] [address], [place] [address] Jul, [facility] [address] [id number] [address] [place] [address], [place] [address] Jul, [facility] [address] [id number] [address] [place] [address], [place] [address] Jul, [facility] [address] [id number] [address] [place] [address], [place] [address] Jul, [facility] [address] [id number] [address] [place] [address], [place] [address] Jul, [facility] [address] [id number] [address] [place] [address], [place] [address] Jul, [facility] [address] [id number] [address] [place] [address], [place] [address] Jul, [facility] [address] [id number] [address] [place] [address], [place] [address] Jun, [facility] [address] [id number] [address] [place] [address], [place] [address] Jun, [facility] [address] [id number] [address] [place] [address], [place] [address] Jun, [facility] [address] [id number] [address] [place] [address], [place] [address] Jun, [facility] [address] [id number] [address] [place] [address], [place] [address] Jun, [facility] [address] [id number] [address] [place] [address], [place] [address] Jun, [facility] [address] [id number] [address] [place] [address], [place] [address] Jun, [facility] [address] [id number] [address] [place] [address], [place] [address] Jun, [facility] [address] [id number] [address] [place] [address], [place] [address] Jun, [facility] [address] [id number] [address] [place] [address], [place] [address] Jun, [facility] [address] [id number] [address] [place] [address], [place] [address] 29 May, 2013 [facility] [address] [id number] [address] [place] [address], [place] [address] 29 Sep, 2013 [facility] [address] [id number] [address] [place] [address], [place] [address] 26 Sep, 2013 [facility] [address] [id number] [address] [place] [address], [place] [address] 26 Sep, 2013 [facility] [address] [id number] [address] [place] [address], [place] [address] 17 May, 2013 [facility] [address] [id number] [address] [place] [address], [place] [address] 17 May, 2013 [facility] [address] [id number] [address] [place] [address], [place] [address] 15 May, 2013 [facility] [address] [id number] [address] [place] [address], [place] [address] 15 May, 2013 [facility] [address] [id number] [address] [place] [address], [place] [address] 15 May, 2013 [facility] [address] [id number] [address] [place] [address], [place] [address] 15 May, 2013 [facility] [address] [id number] [address] [place] [address] 10 Sep, 2013 [facility] [address] [id number] [address] [place] [address], [place] [address] 10 May, 2013 [facility] [address] [id number] [address] [place] [address], [place] [address] 09 Sep, 2013 [facility] [address] [id number] [address] [place] [address], [place] [address] 09 Sep, 2013 [facility] [address] [id number] [facility] [place] [place] [address] May, [facility] [address] [id number] [address] [place] [address], [place] [address] May, [facility] [address] [id number] [facility] [place] [place] [address] Apr, [facility] [address] [id number] [address] [place] [address], [place] [address] Apr, [facility] [address] [id number] [address] [place] [address], [place] [address] Apr, [facility] [address] [id number] [address] [place] [address], [place] [address] Apr, [facility] [address] [id number] [address] [place] [address], [place] [address] Apr, [facility] [address] [id number] [address] [place] [address], [place] [address] Apr, [facility] [address] [id number] [address] [place] [address], [place] [address] Apr, [facility] [address] [id number] [address] [place] [address], [place] [address] Apr, [facility] [address] [id number] [address] [place] [address], [place] [address] Apr, [facility] [address] [id number] [address] [place] [address], [place] [address] Apr, [facility] [address] [id number] [address] [place] [address], [place] [address] Apr, [facility] [address] [id number] [address] [place] [address], [place] [address] Apr, [facility] [address] [id number] [address] [place] [address], [place] [address] Apr, [facility] [address] [id number] [address] [place] [address], [place] [address] Apr, [facility] [address] [id number] [address] [place] [address], [place] [address] Apr, [facility] [address] [id number] [address] [place] [address], [place] [address] Mar, [facility] [address] [id number] [address] [place] [address], [place] [address] Mar, [facility] [address] [id number] [address] [place] [address], [place] [address] Mar, [facility] [address] [id number] [address] [place] [address], [place] [address] Mar, [facility] [address] [id number] [address] [place] [address], [place] [address] Mar, [facility] [address] [id number] [address] [place] [address], [place] [address] Mar, [facility] [address] [id number] [address] [place] [address], [place] [address] Mar, [facility] [address] [id number] [address] [place] [address], [place] [address] Mar, [facility] [address] [id number] [address] [place] [address], [place] [address] Mar, [facility] [address] [id number] [address] [place] [address], [place] [address] Mar, [facility] [address] [id number] [address] [place] [address], [place] [address] Mar, [facility] [address] [id number] [address] [place] [address], [place] [address] Mar, [facility] [address] [id number] [address] [place] [address], [place] [address] Mar, [facility] [address] [id number] [address] [place] [address], [place] [address] Mar, [facility] [address] [id number] [address] [place] [address], [place] [address] Mar, [facility] [address] [id number] [facility] [place] [place] [address] Mar, [facility] [address] [id number] [address] [place] [address], [place] [address] Mar, [facility] [address] [id number] [address] [place] [address], [place] [address] Mar, [facility] [address] [id number] [address] [place] [address], [place] [address] Feb, [facility] [address] [id number] [address] [place] [address], [place] [address] Feb, [facility] [address] [id number] [address] [place] [address], [place] [address] Feb, [facility] [address] [id number] [address] [place] [address], [place] [address] Feb, [facility] [address] [id number] [address] [place] [address], [place] [address] Feb, [facility] [address] [id number] [address] [place] [address], [place] [address] Feb, [facility] [address] [id number] [address] [place] [address], [place] [address] Feb, [facility] [address] [id number] [address] [place] [address], [place] [address] Feb, [facility] [address] [id number] [address] [place] [address], [place] [address] Feb, [facility] [address] [id number] [address] [place] [address], [place] [address] Feb, [facility] [address] [id number] [address] [place] [address], [place] [address] Feb, [facility] [address] [id number] [address] [place] [address], [place] [address] Feb, [facility] [address] [id number] [facility] [place] [place] [address] Feb, [facility] [address] [id number] [facility] [place] [place] [address] Feb, [facility] [address] [id number] [facility] [place] [address] January, [facility] [address] [id number] [facility] [place] [place] [address] January, [facility] [address] [id number] [facility] [place] [address] January, [facility] [address] [id number] [address] [place] [address], [place] [address] January, [facility] [address] [id number] [address] [place] [address], [place] [address] January, [facility] [address] [id number] [address] [place] [address], [place] [address] January, [facility] [address] [id number] [address] [place] [address], [place] [address] January, [facility] [address] [id number] [address] [place] [address], [place] [address] January, [facility] [address] [id number] [address] [place] [address], [place] [address] January, [facility] [address] [id number] [address] [place] [address], [place] [address] January, [facility] [address] [id number] [address] [place] [address], [place] [address] January, [facility] [address] [id number] [address] [place] [address], [place] [address] January, [facility] [address] [id number] [address] [place] [address], [place] [address] January, [facility] [address] [id number] [address] [place] [address], [place] [address] January, [facility] [address] [id number] [facility] [place] [address] Dec, [facility] [address] [id number] [facility] [place] [address] Dec, [facility] [address] [id number] [address] [place] [address], [place] [address] Dec, [facility] [address] [id number] [address] [place] [address], [place] [address] Dec, [facility] [address] [id number] [address] [place] [address], [place] [address] Dec, [facility] [address] [id number] [address] [place] [address], [place] [address] Dec, [facility] [address] [id number] [address] [place] [address], [place] [address] Dec, [facility] [address] [id number] [address] [place] [address], [place] [address] Dec, [facility] [address] [id number] [address] [place] [address], [place] [address] Dec, [facility] [address] [id number] [address] [place] [address], [place] [address] Dec, [facility] [address] [id number] [address] [place] [address], [place] [address] Nov, [facility] [address] [id number] [address] [place] [address], [place] [address] Nov, [facility] [address] [id number] [address] [place] [address], [place] [address] Nov, [facility] [address] [id number] [address] [place] [address], [place] [address] Nov, [facility] [address] [id number] [address] [place] [address], [place] [address] Nov, [facility] [address] [id number] [address] [place] [address], [place] [address] 08 Nov, 2013 [facility] [address] [id number] [address] [place] [address], [place] [address] 05 Nov, 2013 [facility] [address] [id number] [address] [place] [address], [place] [address] 05 Nov, 2013 [facility] [address] [id number] [address] [place] [address], [place] [address] Nov, [facility] [address] [id number] [address] [place] [address], [place] [address] Nov, [facility] [address] [id number] [address] [place] [address], [place] [address] Oct, [facility] [address] [id number] [address] [place] [address], [place] [address] Oct, [facility] [address] [id number] [address] [place] [address], [place] [address] Oct, [facility] [address] [id number] [address] [place] [address], [place] [address] Oct, [facility] [address] [id number] [address] [place] [address], [place] [address] 20 Oct, 2013 [facility] [address] [id number] [address] [place] [address], [place] [address] 20 Oct, 2013 [facility] [address] [id number] [address] [place] [address], [place] [address] 14 Oct, 2013 [facility] [address] [id number] [address] [place] [address], [place] [id number] 14 Oct, 2013 [facility] [address] [id number] [address] [place] [address], [place] [address] 05 Oct, 2013 [facility] [address] [id number] [address] [place] [address], [place] [id number] 05 Oct, 2013 [facility] [address] [id number] [address] [place] [address], [place] [id number] Oct, [facility] [address] [id number] [address] [place] [address], [place] [address] Oct, [facility] [address] [id number] [address] [place] [address], [place] [address] Oct, [facility] [address] [id number] [address] [place] [address], [place] [id number] Oct, [facility] [address] [id number] [address] [place] [address], [place] [id number] Sep, [facility] [address] [id number] [address] [place] [address], [place] [id number] Sep, [facility] [address] [id number] [address] [place] [address], [place] [id number] Sep, [facility] [address] [id number] [address] [place] [address], [place] [id number] Sep, [facility] [address] [id number] [address] [place] [address], [place] [id number] Sep, [facility] [address] [id number] [address] [place] [address], [place] [address] Sep, [facility] [address] [id number] [address] [place] [address], [place] [address] Sep, [facility] [address] [id number] [address] [place] [address], [place] [id number] Sep, [facility] [address] [id number] [address] [place] [address], [place] [address] Sep, [facility] [address] [id number] [address] [place] [address], [place] [id number] Sep, [facility] [address] [id number] [address] [place] [address], [place] [id number] Aug, [facility] [address] [id number] [address] [place] [address], [place] [address] Aug, [facility] [address] [id number] [address] [place] [address], [place] [id number] Jul, [facility] [address] [id number] [address] [place] [address], [place] [address] Jul, [facility] [address] [id number] [address] [place] [address], [place] [address] Jul, [facility] [address] [id number] [address] [place] [address], [place] [address] Jul, [facility] [address] [id number] [address] [place] [address], [place] [id number] Jul, [facility] [address] [id number] [address] [place] [address], [place] [address] Jul, [facility] [address] [id number] [address] [place] [address], [place] [address] Jul, [facility] [address] [id number] [address] [place] [address], [place] [address] Jul, [facility] [address] [id number] [address] [place] [address], [place] [address] Jul, [facility] [address] [id number] [address] [place] [address], [place] [address] Jul, [facility] [address] [id number] [address] [place] [address], [place] [address] Jul, [facility] [address] [id number] [address] [place] [address], [place] [address] Jul, [facility] [address] [id number] [address] [place] [address], [place] [address] Jul, [facility] [address] [id number] [address] [place] [address], [place] [address] Jul, [facility] [address] [id number] [address] [place] [address], [place] [address] Jul, [facility] [address] [id number] [address] [place] [address], [place] [address] Jul, [facility] [address] [id number] [address] [place] [address], [place] [address] Jul, 2012 [facility] [address] [id number] [address] [place] [address], [place] [address] Jul, [facility] [address] [id number] [address] [place] [address], [place] [address] Jul, 2012 [facility] [address] [id number] [address] [place] [address], [place] [address] Jun, 2012 [facility] [address] [id number] [address] [place] [address], [place] [address] Jun, 2012 [facility] [address] [id number] [address] [place] [address], [place] [address] Jun, 2012 [facility] [address] [id number] [address] [place] [address], [place] [id number] Jun, 2012 [facility] [address] [id number] [address] [place] [id number] Jun, [facility] [address] [id number] [address] [place] [id number] Jun, [facility] [address] [id number] [address] [place] [id number] Jun, [facility] [address] [id number] [address] [place] [address] Jun, [facility] [address] [id number] [address] [place] [address] Jun, [facility] [address] [id number] [address] [place] [address] Jun, [facility] [address] [id number] [address] [place] [address] Jun, [facility] [address] [id number] [address] [place] [address] May, [facility] [address] [id number] [address] [place] [id number] 25 May, 2013 [facility] [address] [id number] [address] [place] [address], [place] [id number] 19 May, 2012 [facility] [address] [id number] [address] [place] [address], [place] [id number] 17 May, 2013 [facility] [address] [id number] [address] [place] [address], [place] [id number] 11 May, 2012 [facility] [address] [address] [id number] [address] [place] [address], [place] [address] 10 May, 2012 [facility] [address] [id number] [address] [place] [address], [place] [address] 09 May, 2013 [facility] [address] [id number] [address] [place] [address], [place] [address] 05 May, 2013 [facility] [address] [id number] [address] [place] [address], [place] [address] Apr, [facility] [address] [id number] [address] [place] [address], [place] [address] Apr, [facility] [address] [id number] [address] [place] [address], [place] [address] Apr, [facility] [address] [id number] [address] [place] [address], [place] [address] Apr, [facility] [address] [id number] [address] [place] [address], [place] [address] Apr, [facility] [address] [id number] [address] [place] [address], [place] [address] Mar, [facility] [address] [id number] [address] [place] [address], [place] [address] Mar, [facility] [address] [id number] [address] [place] [address], [place] [address] Mar, [facility] [address] [id number] [address] [place] [address], [place] [address] Mar, [facility] [address] [id number] [facility] [place] [id number] Mar, [facility] [address] [id number] [address] [place] [address], [place] [address] Mar, [facility] [address] [id number] [address] [place] [address], [place] [id number] Mar, [facility] [address] [id number] [address] [place] [address], [place] [address] Mar, [facility] [address] [id number] [address] [place] [address], [place] [address] Feb, [facility] [address] [id number] [address] [place] [address], [place] [address] Feb, [facility] [address] [id number] [address] [place] [address], [place] [address] January, [facility] [address] [id number] [address] [place] [address], [place] [address] January, [facility] [address] [id number] [address] [place] [address], [place] [address] Dec, [facility] [address] [id number] [address] [place] [address], [place] [address] Dec, [facility] [address] [id number] [address] [place] [address], [place] [address] Nov, [facility] [address] [id number] [address] [place] [address], [place] [address] Nov, [facility] [address] [id number] [address] [place] [address], [place] [address] Nov, [facility] [address] [id number] [address] [place] [address], [place] [address] Nov, [facility] [address] [id number] [address] [place] [address], [place] [address] Oct, [facility] [address] [id number] [address] [place] [address], [place] [address] Oct, [facility] [address] [id number] [address] [place] [address], [place] [address] Oct, [facility] [address] [id number] [address] [place] [address], [place] [address] Oct, [facility] [address] [id number] [address] [place] [address], [place] [address] 16 Oct, 2012 [facility] [address] [id number] [address] [place] [address], [place] [address] 14 Oct, 2012 [facility] [address] [id number] [address] [place] [address], [place] [address] 08 Oct, 2012 [facility] [address] [id number] [address] [place] [address], [place] [address] 07 Oct, 2012 [facility] [address] [id number] [address] [place] [address], [place] [address] 03 Oct, 2012 [facility] [address] [id number] [address] [place] [address], [place] [address] Sep, [facility] [address] [id number] [address] [place] [address], [place] [address] Sep, [facility] [address] [id number] [address] [place] [address], [place] [address] Sep, [facility] [address] [id number] [address] [place] [address], [place] [address] Sep, [facility] [address] [id number] [address] [place] [address], [place] [address] Sep, [facility] [address] [id number] [address] [place] [address], [place] [address] Sep, [facility] [address] [id number] [address] [place] [address], [place] [address] 09 Sep, 2012 [facility] [address] [id number] [address] [place] [address], [place] [address] 08 Sep, 2012 [facility] [address] [id number] [address] [place] [address], [place] [address] 31 Aug, 2012 [facility] [address] [id number] [address] [place] [address], [place] [address] Aug, [facility] [address] [id number] [address] [place] [address], [place] [address] Aug, [facility] [address] [id number] [address] [place] [address], [place] [address] Aug, [facility] [address] [id number] [address] [place] [address], [place] [address] Aug, [facility] [address] [id number] [address] [place] [address], [place] [address] Aug, [facility] [address] [id number] [address] [place] [address], [place] [address] Aug, [facility] [address] [id number] [address] [place] [address], [place] [address] Aug, [facility] [address] [id number] [address] [place] [address], [place] [address] Jul, [facility] [address] [id number] [address] [place] [address], [place] [address] Jul, [facility] [address] [id number] [address] [place] [address], [place] [address] Jul, [facility] [address] [id number] [address] [place] [address], [place] [address] Jul, [facility] [address] [id number] [address] [place] [address], [place] [address] Jul, [facility] [address] [id number] [address] [place] [address], [place] [address] Jul, [facility] [address] [id number] [address] [place] [address], [place] [address] Jun, [facility] [address] [id number] [address] [place] [address], [place] [address] Jun, [facility] [address] [id number] [address] [place] [address], [place] [address] Jun, [facility] [address] [id number] [address] [place] [address], [place] [address] Jun, [facility] [address] [id number] [address] [place] [address], [place] [address] Jun, [facility] [address] [id number] [address] [place] [address], [place] [address] Jun, [facility] [address] [id number] [address] [place] [address], [place] [address] Jun, [facility] [address] [id number] [address] [place] [address], [place] [address] Jun, [facility] [address] [id number] [address] [place] [address], [place] [address] Jun, [facility] [address] [id number] [address] [place] [address], [place] [address] 26 May, 2012 [facility] [address] [id number] [address] [place] [address], [place] [address] 24 May, 2012 [facility] [address] [id number] [address] [place] [address], [place] [address] 18 May, 2012 [facility] [address] [id number] [address] [place] [address], [place] [address] 30 Apr, 2012 [facility] [address] [id number] [address] [place] [address], [place] [address] 29 Apr, 2012 [facility] [address] [id number] [address] [place] [address], [place] [address] 18 Apr, 2012 [facility] [address] [id number] [address] [place] [address], [place] [address] 14 Apr, 2012 [facility] [address] [id number] [address] [place] [address], [place] [address] 10 Apr, 2012 [facility] [address] [id number] [address] [place] [address], [place] [address] Apr, [facility] [address] [id number] [address] [place] [address], [place] [address] Mar, [facility] [address] [id number] [address] [place] [address], [place] [address] Mar, [facility] [address] [id number] [address] [place] [address], [place] [address] Mar, [facility] [address] [id number] [address] [place] [address], [place] [address] Mar, [facility] [address] [id number] [address] [place] [address], [place] [address] Feb, [facility] [address] [id number] [address] [place] [address], [place] [address] Feb, [facility] [address] [id number] [address] [place] [address], [place] [address] Feb, [facility] [address] [id number] [address] [place] [address], [place] [address] Feb, [facility] [address] [id number] [address] [place] [address], [place] [address] Feb, [facility] [address] [id number] [address] [place] [address], [place] [address] January, [facility] [address] [id number] [address] [place] [address], [place] [address] January, [facility] [address] [id number] [address] [place] [address], [place] [address] January, [facility] [address] [id number] [address] [place] [address], [place] [address] January, [facility] [address] [id number] [address] [place] [address], [place] [address] January, [facility] [address] [id number] [address] [place] [address], [place] [address] January, [facility] [address] [id number] [address] [place] [address], [place] [address] Dec, [facility] [address] [id number] [address] [place] [address], [place] [address] 24 Dec, 2011 [facility] [address] [id number] [address] [place] [address], [place] [address] 17 Dec, 2011 [facility] [address] [id number] [address] [place] [address], [place] [address] Dec, [facility] [address] [id number] [address] [place] [address], [place] [address] Dec, [facility] [address] [id number] [address] [place] [address], [place] [address] 27 Nov, 2011 [facility] [address] [id number] [address] [place] [address], [place] [address] 14 Nov, 2011 [facility] [address] [id number] [address] [place] [address], [place] [address] Nov, [facility] [address] [id number] [address] [place] [address], [place] [address] Nov, [facility] [address] [id number] [address] [place] [address], [place] [address] 29 Oct, 2011 [facility] [address] [id number] [address] [place] [address], [place] [address] Oct, [facility] [address] [id number] [address] [place] [address], [place] [address] 24 Oct, 2011 [facility] [address] [id number] [address] [place] [address], [place] [address] 13 Oct, 2011 [facility] [address] [id number] [address] [place] [address], [place] [address] 08 Oct, 2011 [facility] [address] [id number] [address] [place] [address], [place] [address] Sep, [facility] [address] [id number] [address] [place] [address], [place] [address] Sep, [facility] [address] [id number] [address] [place] [address], [place] [address] Sep, [facility] [address] [id number] [address] [place] [address], [place] [address] Sep, [facility] [address] [id number] [address] [place] [address], [place] [address] Sep, [facility] [address] [id number] [address] [place] [address], [place] [address] Sep, [facility] [address] [id number] [address] [place] [address], [place] [address] Aug, [facility] [address] [id number] [address] [place] [address], [place] [address] Aug, [facility] [address] [id number] [address] [place] [address], [place] [address] Aug, [facility] [address] [id number] [address] [place] [address], [place] [address] Jul, [facility] [address] [id number] [address] [place] [address], [place] [address] Jul, [facility] [address] [id number] [address] [place] [address], [place] [address] Jul, [facility] [address] [id number] [address] [place] [address], [place] [address] Jul, [facility] [address] [id number] [address] [place] [address], [place] [address] Jun, [facility] [address] [id number] [address] [place] [address], [place] [address] Jun, [facility] [address] [id number] [address] [place] [address], [place] [address] Jun, [facility] [address] [id number] [address] [place] [address], [place] [address] Jun, [facility] [address] [id number] [address] [place] [address], [place] [address] 10 Jun, 2011 [facility] [address] [id number] [address] [place] [address], [place] [address] 10 Jun, 2011 [facility] [address] [id number] [address] [place] [address], [place] [address] 11 Mar, 2011 [facility] [address] [id number] [address] [place] [address], [place] [id number] 18 Dec, 2010 [facility] [address] [id number] [address] [place] [address], [place] [address] 11 Dec, 2010 [facility] [address] [id number] [address] [place] [address], [place] [address] 18 Nov, 2010 [facility] [address] [id number] [address] [place] [address], [place] [address] 16 Nov, 2010 [facility] [address] [id number] [address] [place] [address], [place] [address] 10 Sep, 2010 [facility] [address] [id number] [address] [place] [address], [place] [address] 31 Aug, 2010 [facility] [address] [id number] [address] [place] [address], [place] [address] 29 Aug, 2010 [facility] [address] [id number] [address] [place] [address], [place] [address] 29 Aug, 2010 [facility] [address] [id number] [address] [place] [address], [place] [address] 29 Aug, 2010 [facility] [address] [id number] [address] [place] [address], [place] [address] 27 Aug, 2010 [facility] [address] [id number] [address] [place] [address], [place] [address] 14 Aug, 2010 [facility] [address] [id number] [address] [place] [address], [place] [address] 08 Aug, 2010 [facility] [address] [id number] [address] [place] [address], [place] [address] 08 Aug, 2010 [facility] [address] [id number] [address] [place] [address], [place] [address] Aug, [facility] [address] [id number] [address] [place] [address], [place] [address] Aug, [facility] [address] [id number] [address] [place] [address], [place] [address] Aug, [facility] [address] [id number] [address] [place] [address] Aug, [facility] [address] [id number] [address] [place] [address], [place] [address] Jul, [facility] [address] [id number] [address] [place] [id number] Jul, [facility] [address] [id number] [address] [place] [address], [place] [address] Jul, [facility] [address] [id number] [address] [place] [address] Jul, [facility] [address] [id number] [address] [place] [id number] Jul, [facility] [address] [id number] [address] [place] [address] Jul, [facility] [address] [id number] [address] [place] [address] 24 Jun, 2010 [facility] [address] [id number] [address] [place] [address] Jun, [facility] [address] [id number] [address] [place] [address] Jun, [facility] [address] [id number] [address] [place] [address] Jun, [facility] [address] [id number] [address] [place] [address] Apr, [facility] [address] [id number] [address] [place] [address], [place] [id number] Mar, [facility] [address] [id number] [address] [place] [address], [place] [id number] 17 Feb, 2010 [facility] [address] [id number] [address] [place] [address], [place] [id number] January, [facility] [address] [id number] [address] [place] [address], [place] [id number] 15 Dec, 2009 [facility] [address] [id number] [address] [place] [address], [place] [id number] Nov, [facility] [address] [id number] [address] [place] [address], [place] [id number] 31 Aug, 2009 [facility] [address] [id number] [address] [place] [address], [place] [id number] Aug, [facility] [address] [id number] [address] [place] [address], [place] [id number] Aug, [facility] [address] [id number] [address] [place] [address], [place] [id number] Jul, [facility] [address] [id number] [address] [place] [address], [place] [id number] Jul, [facility] [address] [id number] [address] [place] [address], [place] [id number] 07 Jul, 2009 [facility] [address] [id number] [address] [place] [address], [place] [id number] 30 Jun, 2009 [facility] [address] [id number] [address] [place] [id number] 29 Jun, 2009 [facility] [address] [id number] [address] [place] [address], [place] [id number] 26 Jun, 2009 [facility] [address] [id number] [address] [place] [address], [place] [id number] 22 Jun, 2009 [facility] [address] [id number] [address] [place] [id number] Jun, [facility] [address] [facility] [id number] [address] [place] [id number] Jun, [facility] [address] [facility] [id number] [address] [place] [id number] Apr, [facility] [address] [facility] [id number] [address] [place] [id number] Apr, [facility] [address] [facility] [id number] [address] [place] [id number] Feb, [facility] [address] [facility] [id number] [address] [place] [id number] January, [facility] [address] [facility] [id number] [address] [place] [id number] Dec, IMMUNIZATIONS No Known Immunizations SOCIAL HISTORY [...] inability to urinate 09/16/15 Hospitalization History [facility] inpatient mental health ea rly 1999's Hospitalization History hyperkalemia 10/2017 Hospitalization History fluid in lung
--- OUTSIDE RECORDS SUMMARY | 2020-03-01 18:16 | XMS REPORT ---
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 Name Role Phone TOBY ROSELINE Unavailable PROBLEMS Type Condition ICD9-CM Code CPH10-OJ Code Onset Dates Condition S tatus SNOMED Code Problem Cough R05 Active 34392072 Problem Benign prostatic hyperplasia with lower urinary tract symptoms, unspecified morphology N40.1 Active 21978 6007 Problem Eustachian tube dysfunction, unspecified laterality H69.80 Active 33270390 Problem Chronic pain G89.29 Active 3808880 1 Problem DM neuro manif type II E11.49 Active 68701272 Problem Diabetes E11.9 Active 95327828 Problem Leukocytosis D72.829 Active 0448076 06 Problem Falling R29.6 Active 895519213 Problem Pressure ulcer of other site, stage 3 L89.893 Active 901113471 Problem 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 Active 439945659 Problem Eye exam abnormal R93.8 Active 16 1125752 Problem Dysuria R30.0 Active 61905807 Problem Hypokalemia E87.6 Active 42259946 Problem Morbid obesity E66.01 Active 63756 6002 Problem Anxiety F41.9 Active 48205657 Problem Diabetic polyneuropathy associated with type 2 d iabetes mellitus E11.42 Active 32095039 Problem Essential hypertension I10 Active 51285484 Problem Bilateral primary osteoarthritis of knee M17.0 Active 860245467 Problem Polyneuropathy associated with underlying disease G63 Active 528437424 Problem Anemia of chronic illness D63.8 Acti ve 867205760 Problem Lymphocytosis D72.820 Active 291648 09 Problem Retinal edema H35.81 Active 819952 6 Problem Chronic lymphocytic leukemia C91.10 A ctive 43937165 Problem Bipolar disorder, in partial remission, most rec ent episode depressed F31.75 Active 22233789 Problem Pure hypercholesterolemia E78.00 Acti ve 504958189 Problem Primary osteoarthritis of right knee M17.11 Active 657934509149060 Problem Bipolar disorder F31.9 Active 137 24394 Problem Bipolar I disorder, most recent episode (or curr ent) mixed, moderate F31.62 Active 45153702 Problem Chronic diastolic (congestive) heart failure I50.3 2 Active 385071506 Problem Reactive airway disease J45.909 Active 226604353426 Problem Insomnia, unspecified type G47.00 Act sharon 988039145 Problem Other chronic pain G89.29 Active 8 4067412 Problem Other iron deficiency anemia D50.8 A ctive 59413960 Problem Mild cognitive impairment G31.84 Acti ve 352674294 Problem Skin cancer C44.90 Active 70014532 7 ALLERGIES No Information ENCOUNTERS Encounter Location Date Diagnosis [place] [address] [address] Apr, [place] [address] [place] [id number] [address] [place] [address] Apr, [place] [address] [place] [id number] [address] [place] [address] Mar, Bipolar disorder F31.9 and C hronic pain G89.29 [place] [address] [place] [id number] [address] [place] [address] Feb, Bipolar disorder F31.9 [facility] [address] [facility] [id number] [address] [place] [id number] 17 Feb, 2019 Cellulitis of right upper ex tremity L03.113 and Skin abrasion T14.8XXA [facility] [address] [facility] [id number] [address] [place] [address] 17 Feb, 2019 Bipolar disorder, in partial remission, most recent episode depressed F31.75 and Mild cognitive impairment G31.84 [facility] [address] [facility] [id number] [address] [place] [address] Feb, Chronic pain G89.29 [facility] [address] [facility] [id number] [address] [place] [phone] 03 Feb, 2019 Bipolar disorder, in partial remission, most recent episode depressed F31.75 and Mild cognitive impairment G31.84 [facility] [address] [id number] [address] [place] [address] January, Bipolar disorder, in partial remission, most recent episode depressed F31.75 and Mild cognitive impairment G31.84 [facility] [address] [id number] [address] [place] [address] January, Chronic pain G89.29 and Bipo lar disorder F31.9 [facility] [address] [id number] [address] [place] [address] January, Bipolar disorder, in partial remission, most recent episode depressed F31.75 and Mild cognitive impairment G31.84 [facility] [address] [id number] [address] [place] [address] Dec, [facility] [address] [id number] [address] [place] [address] Dec, Chronic pain G89.29 and Bipo lar disorder F31.9 [facility] [address] [id number] [address] [place] [address] Dec, Edema of both lower extremit ies R60.0 [facility] [address] [id number] [address] [place] [address] Dec, Bipolar disorder F31.9 [facility] [address] [id number] [address] [place] [address] Dec, Bipolar disorder, in partial remission, most recent episode depressed F31.75 and Mild cognitive impairment G31.84 [facility] [address] [id number] [address] [place] [address] Nov, [facility] [address] [id number] [address] [place] [address] Nov, Chronic pain G89.29 [facility] [address] [id number] [address] [place] [id number] Nov, Bipolar disorder, in partial remission, most recent episode depressed F31.75 and Mild cognitive impairment G31.84 [place] [address] [place] [id number] [address] [place] [address] Nov, Bipolar disorder F31.9 [place] [address] [place] [id number] [address] [place] [id number] 04 Nov, 2018 Encounter for Medicare annua [...] unspecified morphology N40.1 and Essential hypertension I10 [place] [id number] [place] [address] Oct, Chronic pain G89.29 [place] [address] [place] [id number] [address] [place] [address] 18 Oct, 2018 Diabetes E11.9 [place] [id number] [place] [address] Oct, Bipolar I disorder, most rec ent episode (or current) mixed, moderate F31.62 and Mild cognitive impairment G31.84 [place] [address] [place] [id number] [address] [place] [address] Oct, Bipolar I disorder, most rec ent episode (or current) mixed, moderate F31.62 and Mild cognitive impairment G31.84 [place] [id number] [address] [place] [address] Sep, Bipolar I disorder, most rec ent episode (or current) mixed, moderate F31.62 and Mild cognitive impairment G31.84 [place] [id number] [place] [address] Sep, [place] [address] [facility] [id number] [address] [place] [address] Sep, Diabetes E11.9 ; Hypoxia R09 .02 ; Hyperglycemia R73.9 ; Therapeutic drug monitoring Z51.81 ; BMI 50.0-59.9, adult Z68.43 and Skin cancer C44.90 [facility] [address] [facility] [id number] [address] [place] [address] Sep, Chronic pain G89.29 [facility] [address] [facility] [id number] [address] [place] [address] Sep, Bipolar I disorder, most rec ent episode (or current) mixed, moderate F31.62 [place] [address] [facility] [id number] [address] [place] [address] Sep, [place] [address] [facility] [id number] [address] [place] [address] Sep, [place] [address] [facility] [id number] [address] [place] [address] Aug, Chronic pain G89.29 [facility] [address] [facility] [id number] [address] [place] [address] Aug, Bipolar I disorder, most rec ent episode (or current) mixed, moderate F31.62 [place] [address] [facility] [id number] [address] [place] [address] Aug, Bipolar I disorder, most rec ent episode (or current) mixed, moderate F31.62 and Mild cognitive impairment G31.84 [place] [id number] [facility] [id number] [address] [place] [address] Jul, [place] [address] [facility] [id number] [address] [place] [address] Jul, Chronic pain G89.29 [facility] [address] [facility] [id number] [address] [place] [address] Jul, Bipolar I disorder, most rec ent episode (or current) mixed, moderate F31.62 and Mild cognitive impairment G31.84 [place] [address] [facility] [id number] [address] [place] [address] Jul, Bipolar I disorder, most rec ent episode (or current) mixed, moderate F31.62 and MCI (mild cognitive impairment) G31.84 [place] [address] [facility] [id number] [address] [place] [address] Jul, [place] [address] [facility] [id number] [address] [place] [address] Jul, [place] [address] [facility] [id number] [address] [place] [address] Jul, Bipolar I disorder, most rec ent episode (or current) mixed, moderate F31.62 [place] [address] [facility] [id number] [address] [place] [address] Jul, Chronic pain G89.29 [place] [address] [facility] [id number] [address] [place] [address] Jun, Bipolar I disorder, most rec ent episode (or current) mixed, moderate F31.62 [place] [address] [facility] [id number] [address] [place] [address] Jun, Pre-procedure lab exam Z01.8 12 [place] [address] [facility] [id number] [address] [place] [address] Jun, [facility] [address] [facility] [id number] [place] [id number] Jun, [place] [address] [facility] [id number] [address] [place] [address] Jun, [place] [address] [facility] [id number] [place] [address] Jun, Forgetfulness R68.89 ; Pre-s yncope R55 ; Localized edema R60.0 ; Other iron deficiency anemia D50.8 and BMI 50.0-59.9, adult Z68.43 [place] [address] [facility] [id number] [address] [place] [address] Jun, Chronic pain G89.29 [place] [address] [place] [id number] [address] [place] [address] Jun, Chronic pain G89.29 [facility] [address] [place] [id number] [address] [place] [address] Jun, Bipolar I disorder, most rec ent episode (or current) mixed, moderate F31.62 [place] [address] [place] [id number] [address] [place] [address] May, Chronic pain G89.29 [place] [address] [place] [id number] [address] [place] [address] Apr, [place] [address] [place] [id number] [place] [address] Apr, Chronic pain G89.29 [place] [address] [address] Apr, Primary osteoarthritis of ri ght knee M17.11 [place] [address] [place] [id number] [address] [place] [address] Mar, [place] [address] [address] Mar, BMI 50.0-59.9, adult Z68.43 and Bipolar disorder, in partial remission, most recent episode depressed F31.75 [place] [address] [place] [id number] [place] [address] Mar, Diabetes E11.9 ; Pure hyperc holesterolemia E78.00 ; Essential hypertension I10 ; Nausea with vomiting, unspecified R11.2 and Headache, unspecified headache type R51 [place] [address] [place] [id number] [place] [address] Mar, Bipolar I disorder, most rec ent episode (or current) mixed, moderate F31.62 [place] [address] [place] [id number] [address] [place] [address] Mar, Bipolar I disorder, most rec ent episode (or current) mixed, moderate F31.62 [facility] [address] [facility] [id number] [address] [place] [address] Mar, Chronic pain G89.29 [facility] [address] [facility] [id number] [address] [place] [address] Mar, Bipolar I disorder, most rec ent episode (or current) mixed, moderate F31.62 [facility] [address] [facility] [id number] [address] [place] [address] Feb, Bipolar I disorder, most rec ent episode (or current) mixed, moderate F31.62 [place] [address] [facility] [id number] [address] [place] [address] Feb, Chronic pain G89.29 [place] [address] [place] [id number] [address] [place] [address] Feb, Decubitus ulcer of right josselin t, stage 3 L89.893 and BMI 50.0-59.9, adult Z68.43 [place] [address] [facility] [id number] [address] [place] [address] Feb, Bipolar I disorder, most rec ent episode (or current) mixed, moderate F31.62 [place] [address] [place] [id number] [address] [place] [address] Feb, [facility] [address] [facility] [id number] [address] [place] [address] January, [facility] [address] [facility] [id number] [address] [place] [address] January, Chronic pain G89.29 [facility] [address] [facility] [id number] [address] [place] [address] January, Bipolar I disorder, most rec ent episode (or current) mixed, moderate F31.62 [place] [address] [place] [id number] [address] [place] [address] January, Bipolar I disorder, most rec ent episode (or current) mixed, moderate F31.62 [place] [address] [facility] [id number] [address] [place] [address] Dec, Bipolar I disorder, most rec ent episode (or current) mixed, moderate F31.62 and BMI 50.0-59.9, adult Z68.43 [place] [address] [place] [id number] [address] [place] [address] Dec, Bipolar I disorder, most rec ent episode (or current) mixed, moderate F31.62 [place] [address] [facility] [id number] [address] [place] [address] Dec, Chronic pain G89.29 [place] [address] [place] [id number] [address] [place] [address] Dec, DM neuro manif type II E11.4 9 ; Right flank pain R10.9 ; snf 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 Z79.891 ; Encounter for medication monitoring Z51.81 and BMI 50.0-59.9, adult Z68.43 [place] [address] [place] [id number] [address] [place] [address] Dec, Bipolar I disorder, most rec ent episode (or current) mixed, moderate F31.62 [place] [address] [place] [id number] [address] [place] [address] Nov, Bipolar I disorder, most rec ent episode (or current) mixed, moderate F31.62 [place] [address] [facility] [id number] [address] [place] [address] Nov, Chronic pain G89.29 [place] [address] [place] [id number] [address] [place] [address] Nov, Bipolar I disorder, most rec ent episode (or current) mixed, moderate F31.62 [place] [address] [place] [id number] [address] [place] [address] Nov, Hypokalemia E87.6 [place] [address] [address] Nov, Bipolar I disorder, most rec ent episode (or current) mixed, moderate F31.62 [place] [address] [address] Oct, Chronic pain G89.29 [place] [address] [address] Oct, BMI 50.0-59.9, adult Z68.43 and Bipolar I disorder, most recent episode (or current) mixed, moderate F31.62 [place] [address] [address] Oct, Bipolar I disorder, most rec ent episode (or current) mixed, moderate F31.62 [place] [address] [address] Oct, [place] [address] [address] Oct, Hypokalemia E87.6 [place] [address] [address] Oct, DM neuro manif type II E11.[address] [address] Oct, Bipolar I disorder, most rec ent episode (or current) mixed, moderate F31.62 [place] [address] [address] Oct, Bipolar I disorder, most rec ent episode (or current) mixed, moderate F31.62 [place] [address] [address] 14 Oct, 2017 Hyperkalemia E87.5 ; Falling R29.6 ; BMI 50.0-59.9, adult Z68.43 and Acute left ankle pain M25.572 [place] [address] [address] 08 Oct, 2017 DM neuro manif type II E11.4 9 [place] [address] [address] Oct, [place] [address] [address] Sep, Chronic pain G89.29 [place] [address] [address] Sep, [place] [address] [address] Sep, Bilateral primary osteoarthr itis of knee M17.[address] [address] Sep, Generalized edema R60.[address] [address] Sep, Bipolar I disorder, most rec ent episode (or current) mixed, moderate F31.[address] [address] Sep, Hypoxia R09.02 ; Other hyper volemia E87.79 ; Diabetes E11.9 ; Retinal edema H35.81 ; Hypokalemia E87.6 ; 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 ; Anemia of chronic illness D63.8 and BMI 50.0- 59.9, adult Z68.43 [place] [address] [address] Sep, [address] [address] Sep, Bipolar I disorder, most rec ent episode (or current) mixed, moderate F31.62 [place] [address] [address] Aug, Chronic pain G89.29 [facility] [address] [facility] [id number] [address] [place] [address] Aug, Generalized edema R60.1 [facility] [address] [facility] [id number] [address] [place] [address] 18 Aug, 2017 [facility] [address] [place] [id number] [address] [place] [address] Aug, [facility] [address] [facility] [id number] [address] [place] [address] 14 Aug, 2017 Bipolar I disorder, most rec ent episode (or current) mixed, moderate F31.62 [place] [address] [facility] [id number] [address] [place] [address] 07 Aug, 2017 Bipolar I disorder, most rec ent episode (or current) mixed, moderate F31.62 [place] [address] [place] [id number] [address] [place] [address] 04 Aug, 2017 Chronic pain G89.29 [facility] [address] [facility] [id number] [address] [place] [address] 30 Jul, 2017 Bipolar I disorder, most rec ent episode (or current) mixed, moderate F31.62 [facility] [address] [place] [id number] [address] [place] [address] Jul, Bipolar I disorder, most rec ent episode (or current) mixed, moderate F31.62 and BMI 60.0-69.9, adult Z68.44 [facility] [address] [facility] [id number] [address] [place] [address] 16 Jul, 2017 Bipolar I disorder, most rec ent episode (or current) mixed, moderate F31.62 [facility] [address] [facility] [id number] [address] [place] [address] 06 Jul, 2017 Chronic pain G89.29 [facility] [address] [facility] [id number] [address] [place] [address] 02 Jul, 2017 Bipolar I disorder, most rec ent episode (or current) mixed, moderate F31.62 [facility] [address] [facility] [id number] [address] [place] [address] 18 Jun, 2017 Polyneuropathy associated wi th underlying disease G63 and Diabetes E11.9 [facility] [address] [facility] [id number] [address] [place] [address] 16 Jun, 2017 Bipolar I disorder, most rec ent episode (or current) mixed, moderate F31.62 [facility] [address] [facility] [id number] [address] [place] [address] 09 Jun, 2017 Chronic pain G89.29 [facility] [address] [facility] [id number] [address] [place] [address] May, Bipolar I disorder, most rec ent episode (or current) mixed, moderate F31.62 [place] [address] [facility] [id number] [address] [place] [address] 21 May, 2017 Bipolar I disorder, most rec ent episode (or current) mixed, moderate F31.62 [facility] [address] [facility] [id number] [address] [place] [address] May, Diabetic polyneuropathy asso ciated with type 2 diabetes mellitus E11.42 [facility] [address] [facility] [id number] [address] [place] [address] 18 May, 2017 Bipolar I disorder, most rec ent episode (or current) mixed, moderate F31.62 [place] [address] [facility] [id number] [address] [place] [address] 13 May, 2017 Bipolar I disorder, most rec ent episode (or current) mixed, moderate F31.62 [place] [address] [facility] [id number] [address] [place] [address] May, Chronic pain G89.29 [facility] [address] [facility] [id number] [address] [place] [address] Apr, Bipolar I disorder, most rec ent episode (or current) mixed, moderate F31.62 [facility] [address] [facility] [id number] [address] [place] [address] Apr, [facility] [address] [id number] [address] [place] [address] Apr, Chronic pain G89.29 and DM n euro manif type II E11.49 [facility] [address] [id number] [address] [place] [address] Apr, [facility] [address] [id number] [address] [place] [address] Apr, Bipolar I disorder, most rec ent episode (or current) mixed, moderate F31.62 [facility] [address] [id number] [address] [place] [address] Apr, Chronic pain G89.29 [facility] [address] [facility] [id number] [address] [place] [address] Apr, Iliotibial band syndrome, le ft M76.32 [facility] [address] [facility] [id number] [address] [place] [address] Apr, Bipolar I disorder, most rec ent episode (or current) mixed, moderate F31.62 [facility] [address] [id number] [address] [place] [address] Mar, Bipolar I disorder, most rec ent episode (or current) mixed, moderate F31.62 [facility] [address] [facility] [id number] [address] [place] [address] Mar, Bipolar I disorder, most rec ent episode (or current) mixed, moderate F31.62 [facility] [address] [id number] [address] [place] [id number] Mar, [facility] [address] [facility] [id number] [address] [place] [id number] Mar, Bipolar I disorder, most rec ent episode (or current) mixed, moderate F31.62 [facility] [address] [facility] [id number] [address] [place] [id number] Mar, Chronic pain G89.29 [facility] [address] [id number] [address] [place] [id number] Mar, Bipolar I disorder, most rec ent episode (or current) mixed, moderate F31.62 [facility] [address] [facility] [id number] [address] [place] [id number] Mar, Bipolar I disorder, most rec ent episode (or current) mixed, moderate F31.62 [facility] [address] [facility] [id number] [address] [place] [id number] Mar, Acute pain of left knee M25. 562 ; Left hip pain M25.552 ; Generalized edema R60.1 and Tongue swelling R22.0 [facility] [address] [id number] [address] [place] [id number] Mar, [facility] [address] [facility] [facility] [id number] [address] [place] [id number] Feb, Chronic pain G89.29 [facility] [address] [facility] [id number] [address] [place] [address] Feb, Diabetes E11.9 [facility] [address] [facility] [id number] [address] [place] [address] January, Chronic pain G89.29 [facility] [address] [facility] [id number] [address] [place] [address] January, [facility] [address] [facility] [id number] [address] [place] [address] January, Bipolar I disorder, most rec ent episode (or current) mixed, moderate F31.62 [facility] [address] [facility] [id number] [address] [place] [address] Dec, Bipolar I disorder, most rec ent episode (or current) mixed, moderate F31.62 [facility] [address] [facility] [id number] [address] [place] [address] Dec, Chronic pain G89.29 [facility] [address] [facility] [id number] [address] [place] [address] Dec, Bipolar I disorder, most rec ent episode (or current) mixed, moderate F31.62 [facility] [address] [facility] [id number] [address] [place] [address] Dec, Diabetes E11.9 ; Essential h ypertension I10 ; Chronic pain G89.29 and Morbid obesity E66.01 [facility] [address] [id number] [address] [place] [address] Dec, [facility] [address] [facility] [id number] [address] [place] [address] Dec, Bipolar I disorder, most rec ent episode (or current) mixed, moderate F31.62 [facility] [address] [facility] [id number] [address] [place] [address] Dec, Bipolar I disorder, most rec ent episode (or current) mixed, moderate F31.62 [facility] [address] [facility] [id number] [address] [place] [address] Nov, Chronic pain G89.29 [facility] [address] [id number] [address] [place] [address] Nov, Bipolar I disorder, most rec ent episode (or current) mixed, moderate F31.62 [facility] [address] [facility] [id number] [address] [place] [address] Nov, [facility] [address] [facility] [id number] [address] [place] [address] Nov, Bipolar I disorder, most rec ent episode (or current) mixed, moderate F31.62 [facility] [address] [facility] [id number] [address] [place] [address] Nov, Bipolar I disorder, most rec ent episode (or current) mixed, moderate F31.62 [facility] [address] [facility] [id number] [address] [place] [address] Nov, [facility] [address] [facility] [id number] [address] [place] [address] Nov, [facility] [address] [facility] [id number] [address] [place] [address] Nov, [facility] [address] [facility] [id number] [address] [place] [address] Oct, Chronic pain G89.29 [facility] [address] [facility] [id number] [address] [place] [address] Oct, Bipolar I disorder, most rec ent episode (or current) mixed, moderate F31.62 [facility] [address] [facility] [id number] [address] [place] [address] Oct, [facility] [address] [facility] [id number] [address] [place] [address] Oct, Chronic pain G89.29 ; Diabet es E11.9 ; Anxiety F41.9 and 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 [facility] [address] [facility] [id number] [address] [place] [address] Oct, [facility] [address] [facility] [id number] [address] [place] [address] Oct, Diabetes E11.9 [facility] [address] [facility] [id number] [address] [place] [address] Oct, Bipolar I disorder, most rec ent episode (or current) mixed, moderate F31.62 [facility] [address] [facility] [id number] [address] [place] [address] Sep, Chronic pain G89.29 [facility] [address] [facility] [id number] [address] [place] [address] Sep, Chronic pain G89.29 [facility] [address] [facility] [id number] [address] [place] [address] Aug, Chronic pain G89.29 [facility] [address] [facility] [id number] [address] [place] [address] Jul, [facility] [address] [facility] [id number] [address] [place] [address] Jul, Diabetes E11.9 [facility] [address] [facility] [id number] [address] [place] [address] Jul, Chronic pain G89.29 [facility] [address] [facility] [id number] [address] [place] [address] Jul, Bipolar I disorder, most rec ent episode (or current) mixed, moderate F31.62 [facility] [address] [facility] [id number] [address] [place] [address] Jun, Bipolar I disorder, most rec ent episode (or current) mixed, moderate F31.62 [facility] [address] [facility] [id number] [address] [place] [address] Jun, [facility] [address] [facility] [id number] [address] [place] [address] Jun, Bipolar I disorder, most rec ent episode (or current) mixed, moderate F31.62 [facility] [address] [facility] [id number] [address] [place] [address] May, Insomnia, unspecified type G 47.00 [facility] [address] [facility] [id number] [address] [place] [address] May, Bipolar I disorder, most rec ent episode (or current) mixed, moderate F31.62 [facility] [address] [facility] [id number] [address] [place] [address] 14 May, 2016 [facility] [address] [facility] [id number] [address] [place] [id number] 08 May, 2016 Bipolar I disorder, most rec ent episode (or current) mixed, moderate F31.62 [facility] [address] [facility] [id number] [address] [place] [address] 06 May, 2016 Diabetes E11.9 and Essential hypertension I10 [facility] [facility] [id number] [facility] [id number] [address] [place] [address] Apr, Chronic pain G89.29 [facility] [address] [id number] [address] [place] [address] Apr, Bipolar I disorder, most rec ent episode (or current) mixed, moderate F31.62 [facility] [address] [id number] [address] [place] [address] Apr, [facility] [address] [facility] [id number] [address] [place] [id number] Apr, [facility] [address] [facility] [id number] [address] [place] [address] Mar, Chronic pain G89.29 ; Headac he, unspecified headache type R51 ; Neuropathy G62.9 ; Pain of right hip joint M25.551 and Essential hypertension I10 [facility] [address] [facility] [id number] [address] [place] [address] Mar, Chronic pain G89.29 [facility] [address] [facility] [id number] [address] [place] [address] Mar, Bipolar I disorder, most rec ent episode (or current) mixed, moderate F31.62 [facility] [address] [facility] [id number] [address] [place] [address] Feb, Bipolar I disorder, most rec ent episode (or current) mixed, moderate F31.62 and Insomnia, unspecified type G47.00 [facility] [address] [id number] [address] [place] [address] Feb, Chronic pain G89.29 [facility] [address] [facility] [id number] [address] [place] [address] Feb, Bipolar I disorder, most rec ent episode (or current) mixed, moderate F31.62 [facility] [address] [facility] [id number] [address] [place] [address] January, Bipolar I disorder, most rec ent episode (or current) mixed, moderate F31.62 [facility] [address] [facility] [id number] [address] [place] [address] January, Chronic pain G89.29 [facility] [address] [facility] [id number] [address] [place] [address] January, Chronic pain G89.29 and Esse ntial hypertension I10 [facility] [address] [facility] [id number] [address] [place] [address] January, Bipolar I disorder, most rec ent episode (or current) mixed, moderate F31.62 [facility] [address] [facility] [id number] [address] [place] [address] Dec, [facility] [address] [place] [id number] [place] [address] Dec, [facility] [address] [place] [id number] [address] [place] [address] Dec, [facility] [address] [place] [id number] [address] [place] [address] Dec, [facility] [address] [place] [id number] [address] [place] [address] Nov, Reactive airway disease J45. 909 [facility] [address] [place] [id number] [address] [place] [address] Nov, [facility] [address] [place] [id number] [address] [place] [address] Nov, [facility] [address] [place] [id number] [address] [place] [address] Nov, [facility] [address] [place] [id number] [address] [place] [address] Nov, [facility] [address] [place] [id number] [address] [place] [address] Nov, Onychomycosis B35.1 ; Hammer toe M20.40 ; Reno or callus L84 and DM neuro manif type II E11.49 [facility] [address] [facility] [id number] [address] [place] [address] Nov, Chronic pain G89.29 ; Leukoc ytosis D72.829 and Diabetes E11.9 [facility] [address] [address] Nov, [facility] [address] [address] Oct, Bronchitis J40 [place] [address] [address] Oct, [place] [address] [address] Oct, [facility] [facility] [address] [address] Oct, Mastoiditis, unspecified lat erality H70.90 and Type 2 diabetes mellitus with complication E11.8 [facility] [address] [address] Sep, [facility] [address] [address] Sep, Dysuria R30.0 ; Cough R05 ; Benign prostatic hyperplasia with lower urinary tract symptoms, unspecified morphology N40.1 ; Hypokalemia E87.6 and Eustachian tube dysfunction, unspecified laterality H69.80 [facility] [address] [address] Sep, Moderate mixed bipolar I dis order F31.62 [facility] [address] [address] Sep, Hypokalemia E87.6 [place] [address] [address] Sep, [place] [address] [address] Sep, Upper respiratory tract infe ction, unspecified type J06.9 [facility] [address] [id number] [address] [place] [address] Aug, [facility] [address] [id number] [address] [place] [address] Aug, Dysuria R30.0 [facility] [address] [id number] [address] [place] [address] Aug, [facility] [address] [id number] [address] [place] [address] Jul, [facility] [address] [id number] [address] [place] [address] Jul, [facility] [address] [id number] [address] [place] [address] Jul, [facility] [address] [id number] [address] [place] [address] Jul, [facility] [address] [id number] [address] [place] [address] Jun, [facility] [address] [id number] [address] [place] [address] Jun, [facility] [address] [id number] [address] [place] [address] Jun, [facility] [address] [id number] [address] [place] [address] May, [facility] [address] [id number] [address] [place] [address] May, Bipolar I disorder, most rec ent episode (or current) mixed, moderate 296.62 [facility] [address] [id number] [address] [place] [address] 16 May, 2015 [facility] [address] [id number] [address] [place] [address] May, Bipolar I disorder, most rec ent episode (or current) mixed, moderate 296.62 and Major depressive disorder, recurrent episode, severe, specified as with psychotic behavior 296.34 [facility] [address] [id number] [address] [place] [address] May, Bipolar I disorder, most rec ent episode (or current) mixed, moderate 296.62 [facility] [address] [id number] [address] [place] [address] May, [facility] [address] [id number] [address] [place] [address] Apr, [facility] [address] [id number] [address] [place] [address] Apr, [facility] [address] [id number] [address] [place] [address] Apr, Unspecified disorder of kidn ey and ureter 593.9 and Diabetes mellitus type 2, uncontrolled 250.02 [facility] [address] [id number] [address] [place] [address] Apr, [facility] [address] [id number] [address] [place] [address] Apr, [facility] [address] [facility] [id number] [address] [place] [address] Apr, [facility] [address] [id number] [address] [place] [address] Apr, [facility] [address] [id number] [address] [place] [address] Apr, Diabetes mellitus type II, u ncontrolled 250.02 [facility] [address] [id number] [address] [place] [address] Apr, [facility] [address] [id number] [address] [place] [address] Mar, [facility] [address] [id number] [address] [place] [address] Mar, [facility] [address] [facility] [id number] [address] [place] [address] Mar, [facility] [address] [facility] [id number] [address] [place] [address] Mar, Major depressive disorder, r ecurrent episode, severe, specified as with psychotic behavior 296.34 and Bipolar I disorder, most recent episode (or current) mixed, moderate 296.62 [facility] [id number] [place] [address] Mar, Diabetes 250.00 ; Anuria 788 .5 ; Nausea and vomiting 787.01 and Diarrhea 787.91 [facility] [address] [facility] [id number] [address] [place] [address] Mar, Diabetes 250.00 [facility] [address] [place] [id number] [address] [place] [address] Mar, [facility] [address] [place] [address] Mar, Diabetes 250.00 [facility] [address] [facility] [id number] [address] [place] [address] Mar, [facility] [address] [place] [id number] [address] [place] [address] Mar, [facility] [address] [place] [id number] [address] [place] [address] Mar, [facility] [address] [place] [address] Mar, [facility] [address] [place] [id number] [address] [place] [address] Mar, Bipolar I disorder, most rec ent episode (or current) mixed, moderate 296.62 and Major depressive disorder, recurrent episode, severe, specified as with psychotic behavior 296.34 [facility] [address] [place] [id number] [address] [place] [address] Mar, Magnesium deficiency 275.2 ; Hypokalemia 276.8 ; Nausea & vomiting 787.01 and Diabetes mellitus type 2, uncontrolled 250.02 [facility] [address] [address] Feb, [facility] [address] [address] Feb, Bipolar I disorder, most rec ent episode (or current) mixed, moderate 296.62 [facility] [address] [address] Feb, Nausea and vomiting 787.01 ; Left elbow pain 719.42 ; Anuria 788.5 and Diabetes 250.00 [facility] [address] [address] Feb, [facility] [address] [address] Feb, Hypopotassemia 276.8 and Hyp okalemia 276.8 [place] [address] [address] Feb, Hypopotassemia 276.8 and Hyp okalemia 276.8 [place] [address] [address] Feb, Seborrheic keratoses 702.19 [place] [address] [place] [id number] [address] [place] [address] Feb, Hypopotassemia 276.8 and Low magnesium levels 275.2 [facility] [address] [place] [id number] [address] [place] [address] January, [facility] [address] [place] [id number] [address] [place] [address] January, [facility] [address] [address] January, [facility] [address] [place] [id number] [address] [place] [address] January, Scalp lesion 709.9 [facility] [address] [place] [id number] [place] [address] January, [facility] [address] [id number] [address] [place] [address] 30 Dec, 2014 Tear of medial cartilage or meniscus of knee, current 836.0 and Chondromalacia 733.92 [facility] [address] [id number] [address] [place] [address], [place] [address] Dec, [facility] [address] [id number] [address] [place] [address] Dec, [facility] [address] [id number] [address] [place] [address] Dec, Squamous cell carcinoma, 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 [facility] [address] [id number] [address] [place] [address] 14 Dec, 2014 [facility] [address] [id number] [address] [place] [address] Dec, [facility] [address] [id number] [address] [place] [address] Nov, [facility] [address] [id number] [address] [place] [address] Nov, [facility] [address] [id number] [address] [place] [address] Nov, [facility] [address] [id number] [address] [place] [address] Nov, [facility] [address] [id number] [address] [place] [address] Nov, [facility] [address] [id number] [address] [place] [address] Nov, [facility] [address] [id number] [address] [place] [address] Nov, [facility] [address] [id number] [address] [place] [address] Nov, [facility] [address] [id number] [address] [place] [address], [place] [address] Nov, [facility] [address] [id number] [address] [place] [address], [place] [address] Nov, [facility] [address] [id number] [address] [place] [address], [place] [address] Nov, [facility] [address] [id number] [address] [place] [address], [place] [address] Nov, [facility] [address] [id number] [address] [place] [address], [place] [address] Oct, 2014 [facility] [address] [id number] [address] [place] [address], [place] [address] Oct, 2014 [facility] [address] [id number] [address] [place] [address], [place] [address] Oct, 2014 [facility] [address] [id number] [address] [place] [address], [place] [address] Oct, 2014 [facility] [address] [id number] [address] [place] [address], [place] [address] Oct, 2014 [facility] [address] [id number] [address] [place] [address], [place] [address] Oct, 2014 [facility] [address] [id number] [address] [place] [address], [place] [address] Oct, 2014 [facility] [address] [id number] [address] [place] [address], [place] [address] Oct, 2014 [facility] [address] [id number] [address] [place] [address], [place] [address] Oct, [facility] [address] [id number] [address] [place] [address], [place] [id number] Sep, [facility] [address] [id number] [address] [place] [address], [place] [address] Sep, [facility] [address] [id number] [address] [place] [address], [place] [address] Sep, [facility] [address] [id number] [address] [place] [address], [place] [id number] Sep, [facility] [address] [id number] [address] [place] [address], [place] [address] Sep, [facility] [address] [id number] [address] [place] [address], [place] [address] Sep, [facility] [address] [id number] [address] [place] [address], [place] [id number] Sep, [facility] [address] [id number] [address] [place] [address], [place] [id number] Sep, [facility] [address] [id number] [address] [place] [address], [place] [id number] Sep, [facility] [address] [id number] [address] [place] [address], [place] [id number] Sep, [facility] [address] [id number] [address] [place] [address], [place] [id number] Sep, [facility] [address] [id number] [address] [place] [address], [place] [id number] Sep, [facility] [address] [id number] [address] [place] [address], [place] [address] Sep, [facility] [address] [id number] [address] [place] [address], [place] [address] Sep, [facility] [address] [id number] [address] [place] [address], [place] [id number] Sep, [facility] [address] [id number] [address] [place] [address], [place] [address] Sep, [facility] [address] [id number] [address] [place] [address], [place] [id number] Aug, [facility] [address] [id number] [address] [place] [address], [place] [address] Aug, [facility] [address] [id number] [facility] [place] [id number] Aug, [facility] [address] [address] [id number] [facility] [place] [address] Aug, [facility] [address] [id number] [facility] [place] [address] Aug, [facility] [address] [id number] [facility] [place] [address] Aug, [facility] [address] [id number] [facility] [place] [address] Aug, [facility] [address] [id number] [address] [place] [address], [place] [address] Aug, [facility] [address] [id number] [address] [place] [address], [place] [address] Aug, [facility] [address] [id number] [address] [place] [address], [place] [address] Aug, [facility] [address] [id number] [address] [place] [address], [place] [address] Aug, [facility] [address] [place] [id number] Aug, [facility] [address] [id number] [address] [place] [address], [place] [address] Aug, [facility] [address] [id number] [address] [place] [address], [place] [address] Aug, [facility] [address] [id number] [address] [place] [address], [place] [address] Aug, [facility] [address] [id number] [address] [place] [address], [place] [address] Aug, [facility] [address] [id number] [address] [place] [address], [place] [address] Aug, [facility] [address] [id number] [address] [place] [address], [place] [address] Aug, [facility] [address] [id number] [address] [place] [address], [place] [address] Aug, [facility] [address] [id number] [address] [place] [address], [place] [address] Aug, [facility] [address] [id number] [address] [place] [address], [place] [address] Aug, [facility] [address] [id number] [address] [place] [address], [place] [address] Aug, [facility] [address] [id number] [address] [place] [address], [place] [address] Aug, [facility] [address] [id number] [address] [place] [address], [place] [address] Aug, [facility] [address] [id number] [address] [place] [address], [place] [address] Aug, [facility] [address] [id number] [address] [place] [address], [place] [address] Aug, [facility] [address] [id number] [address] [place] [address], [place] [address] Aug, [facility] [address] [id number] [address] [place] [address], [place] [address] Aug, [facility] [address] [id number] [address] [place] [address], [place] [address] Aug, [facility] [address] [id number] [address] [place] [address], [place] [address] Aug, [facility] [address] [id number] [address] [place] [address], [place] [address] Jul, [facility] [address] [id number] [address] [place] [address], [place] [address] Jul, [facility] [address] [id number] [address] [place] [address], [place] [address] Jul, [facility] [address] [id number] [address] [place] [address], [place] [address] Jul, [facility] [address] [id number] [address] [place] [address], [place] [address] Jul, [facility] [address] [id number] [address] [place] [address], [place] [address] Jul, [facility] [address] [id number] [address] [place] [address], [place] [address] Jul, [facility] [address] [id number] [address] [place] [address], [place] [address] Jul, [facility] [address] [id number] [address] [place] [address], [place] [address] Jul, [facility] [address] [id number] [address] [place] [address], [place] [address] Jul, [facility] [address] [id number] [address] [place] [address], [place] [address] Jun, [facility] [address] [id number] [address] [place] [address], [place] [address] Jun, [facility] [address] [id number] [address] [place] [address], [place] [address] Jun, [facility] [address] [id number] [address] [place] [address], [place] [address] Jun, [facility] [address] [id number] [address] [place] [address], [place] [address] Jun, [facility] [address] [id number] [address] [place] [address], [place] [address] Jun, [facility] [address] [id number] [address] [place] [address], [place] [address] Jun, [facility] [address] [id number] [address] [place] [address], [place] [address] Jun, [facility] [address] [id number] [address] [place] [address], [place] [address] Jun, [facility] [address] [id number] [address] [place] [address], [place] [address] Jun, [facility] [address] [id number] [address] [place] [address], [place] [address] 29 May, 2013 [facility] [address] [id number] [address] [place] [address], [place] [address] 29 May, 2013 [facility] [address] [id number] [address] [place] [address], [place] [address] 26 May, 2013 [facility] [address] [id number] [address] [place] [address], [place] [address] 26 May, 2013 [facility] [address] [id number] [address] [place] [address], [place] [address] 17 May, 2013 [facility] [address] [id number] [address] [place] [address], [place] [address] 17 May, 2013 [facility] [address] [id number] [address] [place] [address], [place] [address] 15 May, 2013 [facility] [address] [id number] [address] [place] [address], [place] [address] 15 May, 2013 [facility] [address] [id number] [address] [place] [address], [place] [address] 15 May, 2013 [facility] [address] [id number] [address] [place] [address], [place] [address] 15 May, 2013 [facility] [address] [id number] [address] [place] [address], [place] [address] 10 May, 2013 [facility] [address] [id number] [address] [place] [address], [place] [address] 10 May, 2013 [facility] [address] [id number] [address] [place] [address], [place] [address] 09 May, 2013 [facility] [address] [id number] [address] [place] [address], [place] [address] 09 May, 2013 [facility] [address] [id number] [address] [place] [address], [place] [address] May, [facility] [address] [id number] [address] [place] [address], [place] [address] May, [facility] [address] [id number] [address] [place] [address], [place] [address] Apr, [facility] [address] [id number] [address] [place] [address], [place] [address] Apr, [facility] [address] [id number] [address] [place] [address], [place] [address] Apr, [facility] [address] [id number] [address] [place] [address], [place] [address] Apr, [facility] [address] [id number] [address] [place] [address], [place] [address] Apr, [facility] [address] [id number] [address] [place] [address], [place] [address] Apr, [facility] [address] [id number] [address] [place] [address], [place] [address] Apr, [facility] [address] [id number] [address] [place] [address], [place] [address] Apr, [facility] [address] [id number] [address] [place] [address], [place] [address] Apr, [facility] [address] [id number] [address] [place] [address], [place] [address] Apr, [facility] [address] [id number] [address] [place] [address], [place] [address] Apr, [facility] [address] [id number] [address] [place] [address], [place] [address] Apr, [facility] [address] [id number] [address] [place] [address], [place] [address] Apr, [facility] [address] [id number] [address] [place] [address], [place] [address] Apr, [facility] [address] [id number] [facility] [place] [address] Apr, [facility] [address] [id number] [address] [place] [address] Mar, [facility] [address] [id number] [facility] [place] [address] Mar, [facility] [address] [id number] [address] [place] [address] Mar, [facility] [address] [id number] [facility] [address] Mar, [facility] [address] [id number] [address] [place] [address], [place] [address] Mar, [facility] [address] [id number] [address] [place] [address], [place] [address] Mar, [facility] [address] [id number] [address] [place] [address], [place] [address] Mar, [facility] [address] [id number] [address] [place] [address], [place] [address] Mar, [facility] [address] [id number] [address] [place] [address], [place] [address] Mar, [facility] [address] [id number] [address] [place] [address], [place] [address] Mar, [facility] [address] [id number] [address] [place] [address], [place] [address] Mar, 2013 [facility] [address] [id number] [address] [place] [address], [place] [address] Mar, [facility] [address] [id number] [address] [place] [address], [place] [address] Mar, 2013 [facility] [address] [id number] [address] [place] [address], [place] [address] Mar, 2013 [facility] [address] [id number] [address] [place] [address], [place] [address] Mar, [facility] [address] [id number] [facility] [place] [address] Mar, [facility] [address] [id number] [address] [place] [address] Mar, [facility] [address] [id number] [facility] [place] [address] Mar, [facility] [address] [id number] [facility] [place] [address] Feb, [facility] [address] [id number] [facility] [place] [address] Feb, [facility] [address] [id number] [address] [place] [address], [place] [address] Feb, [facility] [address] [id number] [address] [place] [address], [place] [address] Feb, [facility] [address] [id number] [address] [place] [address], [place] [address] Feb, [facility] [address] [id number] [address] [place] [address], [place] [address] Feb, [facility] [address] [id number] [address] [place] [address], [place] [address] Feb, [facility] [address] [id number] [address] [place] [address], [place] [address] Feb, [facility] [address] [id number] [address] [place] [address], [place] [address] Feb, [facility] [address] [id number] [address] [place] [address], [place] [address] Feb, [facility] [address] [id number] [address] [place] [address], [place] [address] Feb, [facility] [address] [id number] [address] [place] [address], [place] [address] Feb, [facility] [address] [id number] [facility] [place] [address] Feb, [facility] [address] [id number] [address] [place] [address], [place] [address] Feb, [facility] [address] [id number] [address] [place] [address], [place] [address] January, [facility] [address] [id number] [address] [place] [address], [place] [address] January, [facility] [address] [id number] [address] [place] [address], [place] [address] January, [facility] [address] [id number] [address] [place] [address], [place] [address] January, [facility] [address] [id number] [address] [place] [address], [place] [address] January, [facility] [address] [id number] [address] [place] [address], [place] [address] January, [facility] [address] [id number] [address] [place] [address], [place] [address] January, [facility] [address] [id number] [address] [place] [address], [place] [address] January, [facility] [address] [id number] [address] [place] [address], [place] [address] January, [facility] [address] [id number] [address] [place] [address], [place] [address] January, [facility] [address] [id number] [address] [place] [address], [place] [address] January, [facility] [address] [id number] [address] [place] [address], [place] [address] January, [facility] [address] [id number] [address] [place] [address], [place] [address] January, [facility] [address] [id number] [address] [place] [address], [place] [address] January, [facility] [address] [id number] [facility] [place] [address] Dec, [facility] [address] [id number] [facility] [address] Dec, [facility] [address] [id number] [facility] [place] [address] Dec, [facility] [address] [id number] [address] [place] [address], [place] [address] Dec, [facility] [address] [id number] [facility] [place] [address] Dec, [facility] [address] [id number] [address] [place] [address], [place] [address] Dec, [facility] [address] [id number] [address] [place] [address], [place] [address] Dec, [facility] [address] [id number] [address] [place] [address], [place] [address] Dec, [facility] [address] [id number] [address] [place] [address], [place] [address] Dec, [facility] [address] [id number] [address] [place] [address], [place] [address] Dec, [facility] [address] [id number] [address] [place] [address], [place] [address] Nov, [facility] [address] [id number] [address] [place] [address], [place] [address] Nov, [facility] [address] [id number] [address] [place] [address], [place] [address] Nov, [facility] [address] [id number] [address] [place] [address], [place] [address] Nov, [facility] [address] [id number] [address] [place] [address], [place] [address] Nov, [facility] [address] [id number] [address] [place] [address], [place] [address] 08 Nov, 2013 [facility] [address] [id number] [address] [place] [address], [place] [address] Nov, [facility] [address] [id number] [address] [place] [address], [place] [address] 05 Nov, 2013 [facility] [address] [id number] [address] [place] [address], [place] [address] Nov, [facility] [address] [id number] [address] [place] [address], [place] [address] Nov, [facility] [address] [id number] [address] [place] [address], [place] [address] Oct, [facility] [address] [id number] [address] [place] [address], [place] [address] Oct, [facility] [address] [id number] [address] [place] [address], [place] [address] Oct, [facility] [address] [id number] [address] [place] [address], [place] [address] Oct, [facility] [address] [id number] [address] [place] [address], [place] [address] Oct, [facility] [address] [id number] [address] [place] [address], [place] [address] 20 Oct, 2013 [facility] [address] [id number] [address] [place] [address], [place] [address] 14 Oct, 2013 [facility] [address] [id number] [address] [place] [address], [place] [id number] 14 Oct, 2013 [facility] [address] [id number] [address] [place] [address], [place] [id number] 05 Oct, 2013 [facility] [address] [id number] [address] [place] [address], [place] [id number] 05 Oct, 2013 [facility] [address] [id number] [address] [place] [address], [place] [id number] Oct, [facility] [address] [id number] [address] [place] [address], [place] [address] Oct, [facility] [address] [id number] [address] [place] [address], [place] [id number] Oct, [facility] [address] [id number] [address] [place] [address], [place] [id number] Oct, [facility] [address] [id number] [address] [place] [address], [place] [address] Sep, [facility] [address] [id number] [address] [place] [address], [place] [id number] Sep, [facility] [address] [id number] [address] [place] [address], [place] [id number] Sep, [facility] [address] [id number] [address] [place] [address], [place] [address] Sep, [facility] [address] [id number] [address] [place] [address], [place] [address] Sep, [facility] [address] [id number] [address] [place] [address], [place] [address] Sep, [facility] [address] [id number] [address] [place] [address], [place] [address] Sep, [facility] [address] [id number] [address] [place] [address], [place] [address] Sep, [facility] [address] [id number] [address] [place] [address], [place] [address] Sep, [facility] [address] [id number] [address] [place] [address], [place] [address] Sep, [facility] [address] [id number] [address] [place] [address], [place] [address] Aug, [facility] [address] [id number] [address] [place] [address], [place] [address] Aug, [facility] [address] [id number] [address] [place] [address] [place] [id number] Jul, [facility] [address] [id number] [address] [place] [address], [place] [address] Jul, [facility] [address] [id number] [address] [place] [address], [place] [address] Jul, [facility] [address] [id number] [address] [place] [address], [place] [address] Jul, [facility] [address] [id number] [address] [place] [address], [place] [address] Jul, [facility] [address] [id number] [address] [place] [address], [place] [address] Jul, [facility] [address] [id number] [address] [place] [address], [place] [address] Jul, [facility] [address] [id number] [address] [place] [address], [place] [address] Jul, [facility] [address] [id number] [address] [place] [address], [place] [address] Jul, [facility] [address] [id number] [address] [place] [address], [place] [address] Jul, [facility] [address] [id number] [address] [place] [address], [place] [address] Jul, [facility] [address] [id number] [address] [place] [address], [place] [address] Jul, [facility] [address] [id number] [address] [place] [id number] Jul, [facility] [address] [id number] [address] [place] [id number] Jul, [facility] [address] [id number] [address] [place] [address], [place] [id number] Jul, [facility] [address] [id number] [address] [place] [id number] Jul, [facility] [address] [id number] [address] [place] [address], [place] [id number] Jul, [facility] [address] [id number] [address] [place] [address], [place] [address] Jul, [facility] [address] [id number] [address] [place] [address], [place] [address] Jul, [facility] [address] [id number] [address] [place] [address], [place] [address] Jun, 2012 [facility] [address] [id number] [address] [place] [address], [place] [address] Jun, 2012 [facility] [address] [id number] [address] [place] [address], [place] [address] Jun, [facility] [address] [id number] [address] [place] [address], [place] [address] Jun, 2012 [facility] [address] [id number] [address] [place] [address], [place] [address] Jun, [facility] [address] [id number] [address] [place] [address], [place] [address] Jun, [facility] [address] [id number] [address] [place] [address], [place] [address] Jun, [facility] [address] [id number] [address] [place] [address], [place] [address] Jun, [facility] [address] [id number] [address] [place] [address], [place] [address] Jun, [facility] [address] [id number] [address] [place] [id number] Jun, [facility] [address] [id number] [address] [place] [address], [place] [address] Jun, [facility] [address] [id number] [address] [place] [id number] May, [facility] [address] [id number] [address] [place] [id number] 25 May, 2013 [facility] [address] [id number] [address] [place] [address], [place] [address] 19 May, 2012 [facility] [address] [id number] [address] [place] [address], [place] [address] 17 May, 2013 [facility] [address] [id number] [address] [place] [address], [place] [address] 11 May, 2013 [facility] [address] [id number] [address] [place] [address], [place] [address] 10 May, 2013 [facility] [address] [id number] [address] [place] [address], [place] [address] May, [facility] [address] [id number] [address] [place] [address], [place] [address] 05 May, 2013 [facility] [address] [id number] [address] [place] [address], [place] [address] Apr, [facility] [address] [id number] [address] [place] [address], [place] [address] Apr, [facility] [address] [id number] [address] [place] [address], [place] [address] Apr, [facility] [address] [id number] [address] [place] [address], [place] [address] Apr, [facility] [address] [id number] [address] [place] [address], [place] [address] Apr, [facility] [address] [id number] [address] [place] [address], [place] [address] Mar, [facility] [address] [id number] [address] [place] [address], [place] [address] Mar, [facility] [address] [id number] [address] [place] [address], [place] [address] Mar, [facility] [address] [id number] [address] [place] [address], [place] [address] Mar, [facility] [address] [id number] [address] [place] [address], [place] [address] Mar, [facility] [address] [id number] [address] [place] [address], [place] [address] Mar, [facility] [address] [id number] [address] [place] [address], [place] [address] Mar, [facility] [address] [id number] [address] [place] [address], [place] [address] Mar, [facility] [address] [id number] [address] [place] [address], [place] [address] Feb, [facility] [address] [id number] [address] [place] [address], [place] [address] Feb, [facility] [address] [id number] [address] [place] [address], [place] [address] January, [facility] [address] [id number] [address] [place] [address], [place] [address] January, [facility] [address] [id number] [address] [place] [address], [place] [address] Dec, [facility] [address] [id number] [address] [place] [address], [place] [address] Dec, [facility] [address] [id number] [address] [place] [address], [place] [address] Nov, [facility] [address] [id number] [address] [place] [address], [place] [address] Nov, [facility] [address] [id number] [address] [place] [address], [place] [address] Nov, [facility] [address] [id number] [address] [place] [address], [place] [address] Nov, [facility] [address] [id number] [address] [place] [address], [place] [address] Oct, [facility] [address] [id number] [address] [place] [address], [place] [address] Oct, [facility] [address] [id number] [address] [place] [address], [place] [address] Oct, [facility] [address] [id number] [address] [place] [address], [place] [address] Oct, [facility] [address] [id number] [address] [place] [address], [place] [address] 16 Oct, 2012 [facility] [address] [id number] [address] [place] [address], [place] [address] 14 Oct, 2012 [facility] [address] [id number] [address] [place] [address], [place] [address] 08 Oct, 2012 [facility] [address] [id number] [address] [place] [address], [place] [address] 07 Oct, 2012 [facility] [address] [id number] [address] [place] [address], [place] [address] 03 Oct, 2012 [facility] [address] [id number] [address] [place] [address], [place] [address] 30 Sep, 2012 [facility] [address] [id number] [address] [place] [address], [place] [address] Sep, [facility] [address] [id number] [address] [place] [address], [place] [address] Sep, [facility] [address] [id number] [address] [place] [address], [place] [address] Sep, [facility] [address] [id number] [address] [place] [address], [place] [address] Sep, [facility] [address] [id number] [address] [place] [address], [place] [address] Sep, [facility] [address] [id number] [address] [place] [address], [place] [address] Sep, [facility] [address] [id number] [address] [place] [address], [place] [address] 08 Sep, 2012 [facility] [address] [id number] [address] [place] [address], [place] [address] 31 Aug, 2012 [facility] [address] [id number] [address] [place] [address], [place] [address] Aug, [facility] [address] [id number] [address] [place] [address], [place] [address] Aug, [facility] [address] [id number] [address] [place] [address], [place] [address] Aug, [facility] [address] [id number] [address] [place] [address], [place] [address] Aug, [facility] [address] [id number] [address] [place] [address], [place] [address] Aug, [facility] [address] [id number] [address] [place] [address], [place] [address] Aug, [facility] [address] [id number] [address] [place] [address], [place] [address] Aug, [facility] [address] [id number] [address] [place] [address], [place] [address] Jul, [facility] [address] [id number] [address] [place] [address], [place] [address] Jul, [facility] [address] [id number] [address] [place] [address], [place] [address] Jul, [facility] [address] [id number] [address] [place] [address], [place] [address] Jul, [facility] [address] [id number] [address] [place] [address], [place] [address] Jul, [facility] [address] [id number] [address] [place] [address], [place] [address] Jul, [facility] [address] [id number] [address] [place] [address], [place] [address] Jun, [facility] [address] [id number] [address] [place] [address], [place] [address] Jun, [facility] [address] [id number] [address] [place] [address], [place] [address] Jun, [facility] [address] [id number] [address] [place] [address], [place] [address] Jun, [facility] [address] [id number] [address] [place] [address], [place] [address] Jun, [facility] [address] [id number] [address] [place] [address], [place] [address] Jun, [facility] [address] [id number] [address] [place] [address], [place] [address] Jun, [facility] [address] [id number] [address] [place] [address], [place] [address] Jun, [facility] [address] [id number] [address] [place] [address], [place] [address] Jun, [facility] [address] [id number] [address] [place] [address], [place] [address] 26 May, 2012 [facility] [address] [id number] [address] [place] [address], [place] [address] 24 May, 2012 [facility] [address] [id number] [address] [place] [address], [place] [address] 18 May, 2012 [facility] [address] [id number] [address] [place] [address], [place] [address] 30 Apr, 2012 [facility] [address] [id number] [address] [place] [address], [place] [address] 29 Apr, 2012 [facility] [address] [id number] [address] [place] [address], [place] [address] 18 Apr, 2012 [facility] [address] [id number] [address] [place] [address], [place] [address] 14 Apr, 2012 [facility] [address] [id number] [address] [place] [address], [place] [address] 10 Apr, 2012 [facility] [address] [id number] [address] [place] [id number] Apr, [facility] [address] [id number] [address] [place] [address], [place] [address] Mar, [facility] [address] [id number] [address] [place] [address], [place] [address] Mar, [facility] [address] [id number] [address] [place] [address], [place] [address] Mar, [facility] [address] [id number] [address] [place] [address], [place] [address] Mar, [facility] [address] [id number] [address] [place] [address], [place] [address] Feb, [facility] [address] [id number] [address] [place] [address], [place] [address] Feb, [facility] [address] [id number] [address] [place] [address], [place] [address] Feb, [facility] [address] [id number] [address] [place] [address], [place] [address] Feb, [facility] [address] [id number] [address] [place] [address], [place] [address] Feb, [facility] [address] [id number] [address] [place] [address], [place] [address] January, [facility] [address] [id number] [address] [place] [address], [place] [address] January, [facility] [address] [id number] [address] [place] [address], [place] [address] January, [facility] [address] [id number] [address] [place] [address], [place] [address] January, [facility] [address] [id number] [address] [place] [address], [place] [address] January, [facility] [address] [id number] [address] [place] [address], [place] [address] January, [facility] [address] [id number] [address] [place] [address], [place] [address] 24 Dec, 2011 [facility] [address] [id number] [address] [place] [address], [place] [address] 24 Dec, 2011 [facility] [address] [id number] [address] [place] [address], [place] [address] 17 Dec, 2011 [facility] [address] [id number] [address] [place] [address], [place] [address] 09 Dec, 2011 [facility] [address] [id number] [address] [place] [address], [place] [address] 06 Dec, 2011 [facility] [address] [id number] [address] [place] [address], [place] [address] 27 Nov, 2011 [facility] [address] [id number] [address] [place] [address], [place] [address] 14 Nov, 2011 [facility] [address] [id number] [address] [place] [address], [place] [address] 12 Nov, 2011 [facility] [address] [id number] [address] [place] [address], [place] [address] 07 Nov, 2011 [facility] [address] [id number] [address] [place] [address], [place] [address] 29 Oct, 2011 [facility] [address] [id number] [address] [place] [address], [place] [address] 28 Oct, 2011 [facility] [address] [id number] [address] [place] [address], [place] [address] 24 Oct, 2011 [facility] [address] [id number] [address] [place] [address], [place] [address] 13 Oct, 2011 [facility] [address] [id number] [address] [place] [address], [place] [address] 08 Oct, 2011 [facility] [address] [id number] [address] [place] [address], [place] [address] 31 Sep, 2011 [facility] [address] [id number] [address] [address] Sep, [facility] [address] [id number] [address] [place] [address], [place] [address] Sep, [facility] [address] [id number] [address] [place] [address], [place] [address] Sep, [facility] [address] [id number] [address] [place] [id number] Sep, [facility] [address] [id number] [address] [place] [phone] Sep, [facility] [address] [id number] [address] [place] [address], [place] [address] Aug, [facility] [address] [id number] [address] [place] [id number] Aug, [facility] [address] [id number] [address] [place] [address], [place] [address] Aug, [facility] [address] [id number] [address] [place] [id number] Jul, [facility] [address] [id number] [address] [place] [id number] Jul, [facility] [address] [id number] [address] [place] [id number] Jul, [facility] [address] [id number] [address] [place] [id number] Jul, [facility] [address] [id number] [address] [place] [id number] Jun, [facility] [address] [id number] [address] [place] [address], [place] [address] Jun, [facility] [address] [id number] [address] [place] [id number] Jun, [facility] [address] [id number] [address] [place] [id number] Jun, [facility] [address] [id number] [address] [place] [address], [place] [address] 10 Jun, 2011 [facility] [address] [id number] [address] [place] [address], [place] [address] 10 Jun, 2011 [facility] [address] [id number] [address] [place] [address], [place] [address] 11 Mar, 2011 [facility] [address] [id number] [address] [place] [address], [place] [address] 18 Dec, 2010 [facility] [address] [id number] [address] [place] [address], [place] [address] 11 Dec, 2010 [facility] [address] [id number] [address] [place] [address], [place] [address] 18 Nov, 2010 [facility] [address] [id number] [address] [place] [address], [place] [address] 16 Nov, 2010 [facility] [address] [id number] [address] [place] [address], [place] [address] 10 Sep, 2010 [facility] [address] [id number] [address] [place] [address], [place] [address] 31 Aug, 2010 [facility] [address] [id number] [address] [place] [address], [place] [address] 29 Aug, 2010 [facility] [address] [id number] [address] [place] [address], [place] [address] 29 Aug, 2010 [facility] [address] [id number] [address] [place] [address], [place] [address] 29 Aug, 2010 [facility] [address] [id number] [address] [place] [address], [place] [id number] 27 Aug, 2010 [facility] [address] [id number] [address] [place] [address], [place] [id number] 14 Aug, 2010 [facility] [address] [id number] [address] [place] [address], [place] [id number] 08 Aug, 2010 [facility] [address] [id number] [address] [place] [address], [place] [id number] Aug, [facility] [address] [id number] [address] [place] [address], [place] [address] Aug, [facility] [address] [id number] [address] [place] [address], [place] [id number] Aug, [facility] [address] [id number] [address] [place] [address], [place] [id number] Aug, [facility] [address] [id number] [address] [place] [address], [place] [address] Aug, [facility] [address] [id number] [address] [place] [address], [place] [address] Jul, [facility] [address] [id number] [address] [place] [address], [place] [address] Jul, [facility] [address] [id number] [address] [place] [address], [place] [address] Jul, [facility] [address] [id number] [address] [place] [phone] Jul, [facility] [address] [id number] [address] [place] [address], [place] [address] Jul, [facility] [address] [id number] [address] [place] [id number] Jul, [facility] [address] [id number] [address] [place] [id number] 24 Jun, 2010 [facility] [address] [id number] [address] [place] [phone] Jun, [facility] [address] [id number] [address] [place] [id number] Jun, [facility] [address] [id number] [address] [place] [id number] Jun, [facility] [address] [id number] [address] [place] [id number] 16 Apr, 2010 [facility] [address] [id number] [address] [place] [phone] Mar, [facility] [address] [id number] [address] [place] [address], [place] [address] Feb, [facility] [address] [id number] [address] [place] [phone] January, [facility] [address] [id number] [address] [place] [id number] 15 Dec, 2009 [facility] [address] [id number] [address] [place] [phone] Nov, [facility] [address] [id number] [address] [place] [address], [place] [address] 31 Aug, 2009 [facility] [address] [id number] [address] [place] [phone] Aug, [facility] [address] [id number] [address] [place] [id number] Aug, [facility] [address] [id number] [address] [place] [phone] Jul, [facility] [address] [id number] [address] [place] [phone] Jul, [facility] [address] [id number] [address] [place] [id number] Jul, [facility] [address] [id number] [address] [place] [id number] 30 Jun, 2009 [facility] [address] [id number] [address] [place] [id number] 29 Jun, 2009 [facility] [address] [id number] [address] [place] [id number] 26 Jun, 2009 [facility] [address] [id number] [address] [place] [id number] 22 Jun, 2009 [facility] [address] [id number] [address] [place] [id number] 12 Jun, 2009 [facility] [address] [facility] [id number] [address] [place] [phone] Jun, [facility] [address] [facility] [id number] [address] [place] [id number] Apr, [facility] [address] [facility] [id number] [address] [place] [id number] Apr, [facility] [address] [facility] [id number] [address] [place] [id number] Feb, [facility] [address] [facility] [id number] [address] [place] [id number] January, [facility] [address] [facility] [id number] [address] [place] [id number] Dec, IMMUNIZATIONS No Known Immunizations SOCIAL HISTORY Never Assessed REASON FOR VISIT PLAN OF CARE VITAL SIGNS MEDICATIONS Unknown Medications RESULTS No Results PROCEDURES Procedure Date Ordered Result Body Site PSYTX PT&/FAMILY 45 MINUTES May 07, 2014 INSTRUCTIONS MEDICATIONS ADMINISTERED No Known Medications [...] to urinate 09/16/15 Hospitalization History [facility] mental health ea rly 1999' Hospitalization History hyperkalemia 10/2017 Hospitalization History fluid in lung
--- OUTSIDE RECORDS SUMMARY | 2020-03-01 18:17 | XMS REPORT ---
Author Author Michele WASHBURN Organization [facility] Address [address] [place] [address] Care Team Providers Care Sample Grinder Name Role Phone NOEMI WASHBURN Unavailable PROBLEMS Type Condition ICD9-CM Code [id number] Code Onset Dates Condition S tatus SNOMED Code Problem Cough R05 Active 69244482 Problem Benign prostatic hyperplasia with lower urinary tract symptoms, unspecified morphology N40.1 Active 92175 6007 Problem Eustachian tube dysfunction, unspecified laterality H69.80 Active 66015291 Problem Chronic pain G89.29 Active 9544364 1 Problem DM neuro manif type II E11.49 Active 31670537 Problem Diabetes E11.9 Active 29012601 Problem Leukocytosis D72.829 Active 4445455 06 Problem Falling R29.6 Active 681671244 Problem Pressure ulcer of other site, stage 3 L89.893 Active 236819808 Problem 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 Active 501754714 Problem Eye exam abnormal R93.8 Active 16 4142231 Problem Dysuria R30.0 Active 74832108 Problem Hypokalemia E87.6 Active 63883800 Problem Morbid obesity E66.01 Active 02746 6002 Problem Anxiety F41.9 Active 92258514 Problem Diabetic polyneuropathy associated with type 2 d iabetes mellitus E11.42 Active 45882703 Problem Essential hypertension I10 Active 05945370 Problem Bilateral primary osteoarthritis of knee M17.0 Active 456868548 Problem Polyneuropathy associated with underlying disease G63 Active 059751735 Problem Anemia of chronic illness D63.8 Acti ve 422114274 Problem Lymphocytosis D72.820 Active 160435 09 Problem Retinal edema H35.81 Active 447451 6 Problem Chronic lymphocytic leukemia C91.10 A ctive 71693043 Problem Bipolar disorder, in partial remission, most rec ent episode depressed F31.75 Active 42914983 Problem Pure hypercholesterolemia E78.00 Acti ve 074784627 Problem Primary osteoarthritis of right knee M17.11 Active 928643276862372 Problem Bipolar disorder F31.9 Active 137 48890 Problem Bipolar I disorder, most recent episode (or curr ent) mixed, moderate F31.62 Active 01030049 Problem Chronic diastolic (congestive) heart failure I50.3 2 Active 235154758 Problem Reactive airway disease J45.909 Active 798254958702 Problem Insomnia, unspecified type G47.00 Act sharon 343251233 Problem Other chronic pain G89.29 Active 8 4847167 Problem Other iron deficiency anemia D50.8 A ctive 07303858 Problem Mild cognitive impairment G31.84 Acti ve 343704464 Problem Skin cancer C44.90 Active 60080984 7 ALLERGIES No Information ENCOUNTERS Encounter Location Date Diagnosis [place] [address] [facility] [id number] [address] [place] [phone] Apr, [place] [address] [address] [place] [id number] [address] [place] [id number] Apr, [place] [address] [facility] [id number] [address] [place] [phone] Mar, Bipolar disorder F31.9 and C hronic pain G89.29 [place] [address] [facility] [id number] [address] [place] [address] Feb, Bipolar disorder F31.9 [place] [address] [facility] [id number] [address] [place] [address] 17 Feb, 2019 Cellulitis of right upper ex tremity L03.113 and Skin abrasion T14.8XXA [facility] [address] [facility] [id number] [address] [place] [id number] 17 Feb, 2019 Bipolar disorder, in partial remission, most recent episode depressed F31.75 and Mild cognitive impairment G31.84 [place] [address] [facility] [id number] [address] [place] [address] 13 Feb, 2019 Chronic pain G89.29 [place] [address] [facility] [id number] [address] [place] [address] 03 Feb, 2019 Bipolar disorder, in partial remission, most recent episode depressed F31.75 and Mild cognitive impairment G31.84 [facility] [address] [id number] [address] [place] [address] January, Bipolar disorder, in partial remission, most recent episode depressed F31.75 and Mild cognitive impairment G31.84 [facility] [address] [id number] [address] [place] [phone] January, Chronic pain G89.29 and Bipo lar disorder F31.9 [facility] [address] [id number] [address] [place] [id number] January, Bipolar disorder, in partial remission, most recent episode depressed F31.75 and Mild cognitive impairment G31.84 [facility] [address] [id number] [address] [place] [id number] Dec, [facility] [address] [id number] [address] [place] [id number] Dec, Chronic pain G89.29 and Bipo lar disorder F31.9 [facility] [address] [id number] [address] [place] [address] Dec, Edema of both lower extremit ies R60.0 [facility] [address] [id number] [address] [place] [id number] Dec, Bipolar disorder F31.9 [facility] [address] [id number] [address] [place] [address] Dec, Bipolar disorder, in partial remission, most recent episode depressed F31.75 and Mild cognitive impairment G31.84 [facility] [address] [id number] [address] [place] [address] Nov, [facility] [address] [id number] [address] [place] [address] Nov, Chronic pain G89.29 [facility] [address] [id number] [address] [place] [address] Nov, Bipolar disorder, in partial remission, most recent episode depressed F31.75 and Mild cognitive impairment G31.84 [place] [address] [place] [id number] [address] [place] [address] Nov, Bipolar disorder F31.9 [place] [address] [place] [id number] [address] [place] [id number] 04 Nov, 2018 Encounter for Medicare [facility] exam Z00.00 ; Polyneuropathy associated with [...] unspecified morphology N40.1 and Essential hypertension I10 [place] [address] [place] [id number] [address] [place] [address] Oct, Chronic pain G89.29 [place] [address] [place] [address] 18 Oct, 2018 Diabetes E11.9 [place] [address] [place] [id number] [address] [place] [address] Oct, Bipolar I disorder, most rec ent episode (or current) mixed, moderate F31.62 and Mild cognitive impairment G31.84 [place] [address] [place] [address] Oct, Bipolar I disorder, most rec ent episode (or current) mixed, moderate F31.62 and Mild cognitive impairment G31.84 [place] [address] [place] [id number] [address] [place] [id number] Sep, Bipolar I disorder, most rec ent episode (or current) mixed, moderate F31.62 and Mild cognitive impairment G31.84 [place] [address] [place] [id number] [address] [place] [address] Sep, [facility] [address] [id number] [address] [place] [id number] Sep, Diabetes E11.9 ; Hypoxia R09 .02 ; Hyperglycemia R73.9 ; Therapeutic drug monitoring Z51.81 ; BMI 50.0-59.9, adult Z68.43 and Skin cancer C44.90 [place] [address] [facility] [id number] [address] [place] [address] Sep, Chronic pain G89.29 [place] [address] [id number] [address] [place] [phone] Sep, Bipolar I disorder, most rec ent episode (or current) mixed, moderate F31.62 [place] [address] [facility] [id number] [address] [place] [phone] Sep, [place] [address] [facility] [id number] [address] [place] [phone] Sep, [place] [address] [facility] [id number] [address] [place] [address] Aug, Chronic pain G89.29 [place] [address] [id number] [address] [place] [address] Aug, Bipolar I disorder, most rec ent episode (or current) mixed, moderate F31.62 [place] [address] [facility] [id number] [address] [place] [phone] Aug, Bipolar I disorder, most rec ent episode (or current) mixed, moderate F31.62 and Mild cognitive impairment G31.84 [place] [address] [id number] [address] [place] [address] Jul, [place] [address] [facility] [id number] [address] [place] [address] Jul, Chronic pain G89.29 [facility] [address] [id number] [address] [place] [address] Jul, Bipolar I disorder, most rec ent episode (or current) mixed, moderate F31.62 and Mild cognitive impairment G31.84 [facility] [address] [facility] [id number] [address] [place] [phone] Jul, Bipolar I disorder, most rec ent episode (or current) mixed, moderate F31.62 and MCI (mild cognitive impairment) G31.84 [facility] [address] [facility] [id number] [address] [place] [phone] Jul, [facility] [address] [facility] [id number] [address] [place] [address] Jul, [place] [address] [facility] [id number] [address] [place] [address] Jul, Bipolar I disorder, most rec ent episode (or current) mixed, moderate F31.62 [place] [address] [facility] [id number] [address] [place] [address] Jul, Chronic pain G89.29 [place] [address] [facility] [id number] [address] [place] [address] Jun, Bipolar I disorder, most rec ent episode (or current) mixed, moderate F31.62 [place] [address] [place] [id number] [address] [place] [address] Jun, Pre-procedure lab exam Z01.8 12 [place] [address] [place] [id number] [address] [place] [phone] Jun, [facility] [place] [address] [id number] [place] [id number] Jun, [place] [address] [facility] [id number] [address] [place] [phone] Jun, [place] [address] [place] [id number] [address] [place] [address] Jun, Forgetfulness R68.89 ; Pre-s yncope R55 ; Localized edema R60.0 ; Other iron deficiency anemia D50.8 and BMI 50.0-59.9, adult Z68.43 [place] [address] [place] [id number] [address] [place] [address] 05 Jun, 2018 Chronic pain G89.29 [facility] [address] [place] [id number] [address] [place] [address] 05 Jun, 2018 Chronic pain G89.29 [facility] [address] [place] [id number] [address] [place] [phone] Jun, Bipolar I disorder, most rec ent episode (or current) mixed, moderate F31.62 [facility] [address] [place] [id number] [address] [place] [address] May, Chronic pain G89.29 [facility] [address] [address] Apr, [place] [address] [place] [id number] [place] [address] Apr, Chronic pain G89.29 [place] [address] [address] Apr, Primary osteoarthritis of ri t knee M17.11 [place] [address] [address] Mar, [place] [address] [address] Mar, BMI 50.0-59.9, adult Z68.43 and Bipolar disorder, in partial remission, most recent episode depressed F31.75 [place] [address] [place] [id number] [address] [place] [address] Mar, Diabetes E11.9 ; Pure hyperc holesterolemia E78.00 ; Essential hypertension I10 ; Nausea with vomiting, unspecified R11.2 and Headache, unspecified headache type R51 [place] [address] [place] [id number] [address] [place] [address] Mar, Bipolar I disorder, most rec ent episode (or current) mixed, moderate F31.62 [place] [address] [address] Mar, Bipolar I disorder, most rec ent episode (or current) mixed, moderate F31.62 [facility] [address] [facility] [id number] [address] [place] [address] Mar, Chronic pain G89.29 [facility] [address] [facility] [id number] [address] [place] [id number] Mar, Bipolar I disorder, most rec ent episode (or current) mixed, moderate F31.62 [place] [address] [facility] [id number] [address] [place] [address] Feb, Bipolar I disorder, most rec ent episode (or current) mixed, moderate F31.62 [place] [address] [place] [id number] [address] [place] [address] Feb, Chronic pain G89.29 [place] [address] [place] [id number] [address] [place] [address] Feb, Decubitus ulcer of right josselin t, stage 3 L89.893 and BMI 50.0-59.9, adult Z68.43 [place] [address] [facility] [id number] [address] [place] [address] Feb, Bipolar I disorder, most rec ent episode (or current) mixed, moderate F31.62 [place] [address] [facility] [id number] [address] [place] [phone] Feb, [facility] [address] [facility] [id number] [address] [place] [address] January, [facility] [address] [facility] [id number] [address] [place] [address] January, Chronic pain G89.29 [facility] [address] [facility] [id number] [address] [place] [phone] January, Bipolar I disorder, most rec ent episode (or current) mixed, moderate F31.62 [place] [address] [facility] [id number] [address] [place] [address] January, Bipolar I disorder, most rec ent episode (or current) mixed, moderate F31.62 [place] [address] [facility] [id number] [address] [place] [address] Dec, Bipolar I disorder, most rec ent episode (or current) mixed, moderate F31.62 and BMI 50.0-59.9, adult Z68.43 [place] [address] [place] [id number] [address] [place] [address] Dec, Bipolar I disorder, most rec ent episode (or current) mixed, moderate F31.62 [place] [address] [facility] [id number] [address] [place] [address] Dec, Chronic pain G89.29 [place] [address] 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 [id number] [address] [place] [address] Nov, Chronic pain G89.29 [place] [address] [place] [id number] [address] [place] [address] Nov, Bipolar I disorder, most rec ent episode (or current) mixed, moderate F31.62 [place] [address] [facility] [id number] [address] [place] [address] Nov, Hypokalemia E87.6 [place] [address] [place] [id number] [address] [place] [address] Nov, Bipolar I disorder, most rec ent episode (or current) mixed, moderate F31.62 [place] [address] [place] [id number] [place] [address] Oct, Chronic pain G89.29 [place] [address] [address] Oct, BMI 50.0-59.9, adult Z68.43 and Bipolar I disorder, most recent episode (or current) mixed, moderate F31.62 [place] [address] [address] Oct, Bipolar I disorder, most rec ent episode (or current) mixed, moderate F31.62 [place] [address] [address] Oct, [place] [address] [address] Oct, Hypokalemia E87.6 [place] [address] [address] Oct, DM neuro manif type II E11.4 9 [place] [address] [address] Oct, Bipolar I disorder, most rec ent episode (or current) mixed, moderate F31.62 [place] [address] [place] [id number] [address] [place] [address] Oct, Bipolar I disorder, most rec ent episode (or current) mixed, moderate F31.62 [place] [address] [place] [id number] [address] [place] [address] 14 Oct, 2017 Hyperkalemia E87.5 ; Falling R29.6 ; BMI 50.0-59.9, adult Z68.43 and Acute left ankle pain M25.572 [place] [address] [place] [id number] [address] [place] [address] 08 Oct, 2017 DM neuro manif type II E11.4 9 [place] [address] [place] [address] Oct, [place] [address] [place] [id number] [place] [address] Sep, Chronic pain G89.29 [place] [address] [address] Sep, [place] [address] [address] Sep, Bilateral primary osteoarthr itis of knee M17.0 [place] [address] [address] Sep, Generalized edema R60.1 [place] [address] [address] 16 Sep, 2017 Bipolar I disorder, most rec ent episode (or current) mixed, moderate F31.62 [place] [address] [address] 15 Sep, 2017 Hypoxia R09.02 ; Other hyper volemia E87.79 ; Diabetes E11.9 ; Retinal edema H35.81 ; Hypokalemia E87.6 ; 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 [id number] [address] [place] [address] Aug, Generalized edema R60.1 [facility] [address] [facility] [id number] [address] [place] [address] Aug, [facility] [address] [facility] [id number] [address] [place] [phone] Aug, [facility] [address] [facility] [id number] [address] [place] [address] 14 Aug, 2017 Bipolar I disorder, most rec ent episode (or current) mixed, moderate F31.62 [place] [address] [facility] [id number] [address] [place] [address] Aug, Bipolar I disorder, most rec ent episode (or current) mixed, moderate F31.62 [place] [address] [facility] [id number] [address] [place] [address] 04 Aug, 2017 Chronic pain G89.29 [facility] [address] [facility] [id number] [address] [place] [address] 30 Jul, 2017 Bipolar I disorder, most rec ent episode (or current) mixed, moderate F31.62 [facility] [address] [facility] [id number] [address] [place] [address] Jul, Bipolar I disorder, most rec ent episode (or current) mixed, moderate F31.62 and BMI 60.0-69.9, adult Z68.44 [facility] [address] [facility] [id number] [address] [place] [id number] 16 Jul, 2017 Bipolar I disorder, most rec ent episode (or current) mixed, moderate F31.62 [place] [address] [facility] [id number] [address] [place] [address] 06 Jul, 2017 Chronic pain G89.29 [facility] [address] [facility] [id number] [address] [place] [address] 02 Jul, 2017 Bipolar I disorder, most rec ent episode (or current) mixed, moderate F31.62 [facility] [address] [id number] [address] [place] [address] 18 Jun, 2017 Polyneuropathy associated wi th underlying disease G63 and Diabetes E11.9 [facility] [address] [id number] [address] [place] [address] 16 Jun, 2017 Bipolar I disorder, most rec ent episode (or current) mixed, moderate F31.62 [facility] [address] [id number] [address] [place] [address] Jun, Chronic pain G89.29 [facility] [address] [id number] [address] [place] [address] May, Bipolar I disorder, most rec ent episode (or current) mixed, moderate F31.62 [facility] [address] [facility] [id number] [address] [place] [address] 21 May, 2017 Bipolar I disorder, most rec ent episode (or current) mixed, moderate F31.62 [facility] [address] [id number] [address] [place] [address] 20 May, 2017 Diabetic polyneuropathy asso ciated with type 2 diabetes mellitus E11.42 [facility] [address] [id number] [address] [place] [id number] 18 May, 2017 Bipolar I disorder, most rec ent episode (or current) mixed, moderate F31.62 [facility] [address] [facility] [id number] [address] [place] [id number] 13 May, 2017 Bipolar I disorder, most rec ent episode (or current) mixed, moderate F31.62 [facility] [address] [id number] [address] [place] [address] May, Chronic pain G89.29 [facility] [address] [facility] [id number] [address] [place] [id number] Apr, Bipolar I disorder, most rec ent episode (or current) mixed, moderate F31.62 [facility] [address] [facility] [id number] [address] [place] [address] Apr, [facility] [address] [id number] [address] [place] [address] Apr, Chronic pain G89.29 and DM n euro manif type II E11.49 [facility] [address] [facility] [id number] [address] [place] [address] Apr, [facility] [address] [facility] [id number] [address] [place] [address] Apr, Bipolar I disorder, most rec ent episode (or current) mixed, moderate F31.62 [facility] [address] [facility] [id number] [address] [place] [id number] Apr, Chronic pain G89.29 [facility] [address] [facility] [id number] [address] [place] [id number] Apr, Iliotibial band syndrome, le ft M76.32 [facility] [address] [facility] [id number] [address] [place] [id number] Apr, Bipolar I disorder, most rec ent episode (or current) mixed, moderate F31.62 [facility] [address] [facility] [id number] [address] [place] [id number] Mar, Bipolar I disorder, most rec ent episode (or current) mixed, moderate F31.62 [facility] [address] [facility] [id number] [address] [place] [id number] Mar, Bipolar I disorder, most rec ent episode (or current) mixed, moderate F31.62 [facility] [address] [facility] [id number] [address] [place] [id number] Mar, [facility] [address] [facility] [id number] [address] [place] [id number] Mar, Bipolar I disorder, most rec ent episode (or current) mixed, moderate F31.62 [facility] [address] [facility] [id number] [address] [place] [id number] Mar, Chronic pain G89.29 [facility] [address] [id number] [address] [place] [id number] Mar, Bipolar I disorder, most rec ent episode (or current) mixed, moderate F31.62 [facility] [address] [id number] [address] [place] [id number] Mar, Bipolar I disorder, most rec ent episode (or current) mixed, moderate F31.62 [facility] [address] [id number] [address] [place] [address] [address] Mar, Acute pain of left knee M25. 562 ; Left hip pain M25.552 ; Generalized edema R60.1 and Tongue swelling R22.0 [facility] [address] [id number] [address] [place] [id number] Mar, [facility] [address] [id number] [address] [place] [address] Feb, Chronic pain G89.29 [facility] [address] [id number] [address] [place] [address] Feb, Diabetes E11.9 [facility] [address] [id number] [address] [place] [address] January, Chronic pain G89.29 [facility] [address] [facility] [id number] [address] [place] [id number] January, [facility] [address] [id number] [address] [place] [address] January, Bipolar I disorder, most rec ent episode (or current) mixed, moderate F31.62 [facility] [address] [id number] [address] [place] [address] Dec, Bipolar I disorder, most rec ent episode (or current) mixed, moderate F31.62 [facility] [address] [facility] [id number] [address] [place] [address] Dec, Chronic pain G89.29 [facility] [address] [id number] [address] [place] [address] Dec, Bipolar I disorder, most rec ent episode (or current) mixed, moderate F31.62 [facility] [address] [place] [id number] [address] [place] [id number] Dec, Diabetes E11.9 ; Essential h ypertension I10 ; Chronic pain G89.29 and Morbid obesity E66.01 [facility] [address] [place] [id number] [address] [place] [id number] Dec, [facility] [address] [facility] [id number] [address] [place] [address] Dec, Bipolar I disorder, most rec ent episode (or current) mixed, moderate F31.62 [facility] [address] [place] [id number] [address] [place] [id number] Dec, Bipolar I disorder, most rec ent episode (or current) mixed, moderate F31.62 [facility] [address] [place] [id number] [address] [place] [address] Nov, Chronic pain G89.29 [facility] [address] [id number] [address] [place] [address] Nov, Bipolar I disorder, most rec ent episode (or current) mixed, moderate F31.62 [facility] [address] [place] [id number] [address] [place] [address] Nov, [facility] [address] [facility] [id number] [address] [place] [phone] Nov, Bipolar I disorder, most rec ent episode (or current) mixed, moderate F31.62 [facility] [address] [place] [id number] [address] [place] [address] Nov, Bipolar I disorder, most rec ent episode (or current) mixed, moderate F31.62 [facility] [address] [place] [id number] [address] [place] [address] Nov, [facility] [address] [place] [id number] [address] [place] [phone] Nov, [facility] [address] [facility] [id number] [address] [place] [address] Nov, [facility] [address] [facility] [id number] [address] [place] [address] Oct, Chronic pain G89.29 [facility] [address] [facility] [id number] [address] [place] [phone] Oct, Bipolar I disorder, most rec ent episode (or current) mixed, moderate F31.62 [facility] [address] [facility] [id number] [address] [place] [phone] Oct, [facility] [address] 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 [id number] [address] [place] [address] Oct, [facility] [address] [facility] [id number] [address] [place] [address] Oct, Diabetes E11.9 [facility] [address] [facility] [id number] [address] [place] [address] Oct, Bipolar I disorder, most rec ent episode (or current) mixed, moderate F31.62 [facility] [address] [facility] [id number] [address] [place] [address] Sep, Chronic pain G89.29 [facility] [address] [facility] [id number] [address] [place] [address] Sep, Chronic pain G89.29 [facility] [address] [facility] [id number] [address] [place] [address] Aug, Chronic pain G89.29 [facility] [address] [facility] [id number] [address] [place] [id number] Jul, [facility] [address] [facility] [id number] [address] [place] [id number] Jul, Diabetes E11.9 [facility] [address] [facility] [id number] [address] [place] [id number] Jul, Chronic pain G89.29 [facility] [address] [facility] [id number] [address] [place] [address] Jul, Bipolar I disorder, most rec ent episode (or current) mixed, moderate F31.62 [facility] [address] [facility] [id number] [address] [place] [address] Jun, Bipolar I disorder, most rec ent episode (or current) mixed, moderate F31.62 [place] [address] [facility] [id number] [address] [place] [phone] Jun, [facility] [address] [facility] [id number] [address] [place] [address] Jun, Bipolar I disorder, most rec ent episode (or current) mixed, moderate F31.62 [place] [address] [facility] [id number] [address] [place] [id number] 30 May, 2016 Insomnia, unspecified type G 47.00 [facility] [address] [facility] [id number] [address] [place] [phone] May, Bipolar I disorder, most rec ent episode (or current) mixed, moderate F31.62 [facility] [address] [facility] [id number] [address] [place] [address] 14 May, 2016 [facility] [address] [facility] [id number] [address] [place] [id number] 08 May, 2016 Bipolar I disorder, most rec ent episode (or current) mixed, moderate F31.62 [facility] [address] [facility] [id number] [address] [place] [address] 06 May, 2016 Diabetes E11.9 and Essential hypertension I10 [facility] [address] [facility] [id number] [address] [place] [id number] Apr, Chronic pain G89.29 [facility] [address] [id number] [address] [place] [phone] Apr, Bipolar I disorder, most rec ent episode (or current) mixed, moderate F31.62 [facility] [address] [facility] [id number] [address] [place] [address] Apr, [facility] [address] [facility] [id number] [address] [place] [address] Apr, [facility] [address] [facility] [id number] [address] [place] [id number] Mar, Chronic pain G89.29 ; Headac he, unspecified headache type R51 ; Neuropathy G62.9 ; Pain of right hip joint M25.551 and Essential hypertension I10 [place] [address] [facility] [id number] [address] [place] [address] Mar, Chronic pain G89.29 [facility] [address] [facility] [id number] [address] [place] [address] Mar, Bipolar I disorder, most rec ent episode (or current) mixed, moderate F31.62 [place] [address] [facility] [id number] [address] [place] [phone] Feb, Bipolar I disorder, most rec ent episode (or current) mixed, moderate F31.62 and Insomnia, unspecified type G47.00 [place] [address] [facility] [id number] [address] [place] [address] Feb, Chronic pain G89.29 [facility] [address] [facility] [id number] [address] [place] [address] Feb, Bipolar I disorder, most rec ent episode (or current) mixed, moderate F31.62 [place] [address] [facility] [id number] [address] [place] [address] January, Bipolar I disorder, most rec ent episode (or current) mixed, moderate F31.62 [place] [address] [facility] [id number] [address] [place] [address] January, Chronic pain G89.29 [facility] [address] [facility] [id number] [address] [place] [address] January, Chronic pain G89.29 and Esse ntial hypertension I10 [facility] [address] [facility] [id number] [address] [place] [id number] January, Bipolar I disorder, most rec ent episode (or current) mixed, moderate F31.62 [facility] [address] [facility] [id number] [address] [place] [address] Dec, [facility] [address] [facility] [id number] [address] [place] [address] Dec, [facility] [address] [place] [id number] [address] [place] [id number] Dec, [facility] [address] [facility] [id number] [address] [place] [phone] Dec, [facility] [address] [facility] [id number] [address] [place] [address] Nov, Reactive airway disease J45. 909 [facility] [address] [place] [id number] [address] [place] [phone] Nov, [facility] [address] [facility] [id number] [address] [place] [phone] Nov, [facility] [address] [facility] [id number] [address] [place] [address] Nov, [facility] [address] [facility] [id number] [address] [place] [address] Nov, [facility] [address] [place] [id number] [address] [place] [address] Nov, Onychomycosis B35.1 ; Hammer toe M20.40 ; [place] or callus L84 and DM neuro manif type II E11.49 [facility] [address] [address] Nov, Chronic pain G89.29 ; Leukoc ytosis D72.829 and Diabetes E11.9 [place] [address] [address] Nov, [place] [address] [address] Oct, Bronchitis J40 [place] [address] [address] Oct, [place] [address] [address] Oct, [place] [address] [address] Oct, Mastoiditis, unspecified lat erality H70.90 and Type 2 diabetes mellitus with complication E11.8 [place] [address] [address] Sep, [place] [address] [address] Sep, Dysuria R30.0 ; Cough R05 ; Benign prostatic hyperplasia with lower urinary tract symptoms, unspecified morphology N40.1 ; Hypokalemia E87.6 and Eustachian tube dysfunction, unspecified laterality H69.80 [place] [address] [address] Sep, Moderate mixed bipolar I dis order F31.62 [place] [address] [address] Sep, Hypokalemia E87.6 [place] [address] [address] Sep, [place] [address] [address] Sep, Upper respiratory tract infe ction, unspecified type J06.9 [facility] [address] [id number] [address] [place] [phone] Aug, [facility] [address] [id number] [address] [place] [address] Aug, Dysuria R30.0 [facility] [address] [id number] [address] [place] [address] Aug, [facility] [address] [id number] [address] [place] [phone] Jul, [facility] [address] [id number] [address] [place] [id number] Jul, [facility] [address] [id number] [address] [place] [address] Jul, [facility] [address] [id number] [address] [place] [address] Jul, [facility] [address] [id number] [address] [place] [phone] Jun, [facility] [address] [id number] [address] [place] [address] Jun, [facility] [address] [id number] [address] [place] [address] Jun, [facility] [address] [facility] [id number] [address] [place] [address] May, [facility] [address] [id number] [address] [place] [address] May, Bipolar I disorder, most rec ent episode (or current) mixed, moderate 296.62 [facility] [address] [id number] [address] [place] [address] 16 May, 2015 [facility] [address] [facility] [id number] [address] [place] [address] May, Bipolar I disorder, most rec ent episode (or current) mixed, moderate 296.62 and Major depressive disorder, recurrent episode, severe, specified as with psychotic behavior 296.34 [facility] [address] [id number] [address] [place] [address] May, Bipolar I disorder, most rec ent episode (or current) mixed, moderate 296.62 [facility] [address] [id number] [address] [place] [address] May, [facility] [address] [id number] [address] [place] [address] Apr, [facility] [address] [id number] [address] [place] [address] Apr, [facility] [address] [facility] [id number] [address] [place] [address] Apr, Unspecified disorder of kidn ey and ureter 593.9 and Diabetes mellitus type 2, uncontrolled 250.02 [facility] [address] [facility] [id number] [address] [place] [address] Apr, [facility] [address] [id number] [address] [place] [address] Apr, [facility] [address] [facility] [id number] [address] [place] [address] Apr, [facility] [address] [facility] [id number] [address] [place] [address] Apr, [facility] [address] [id number] [address] [place] [id number] Apr, Diabetes mellitus type II, u ncontrolled 250.02 [facility] [address] [id number] [address] [place] [address] Apr, [facility] [address] [facility] [id number] [address] [place] [phone] Mar, [facility] [address] [facility] [id number] [address] [place] [phone] Mar, [facility] [address] [place] [id number] [address] [place] [phone] Mar, [facility] [address] [place] [id number] [address] [place] [address] Mar, Major depressive disorder, r ecurrent episode, severe, specified as with psychotic behavior 296.34 and Bipolar I disorder, most recent episode (or current) mixed, moderate 296.62 [facility] [address] [place] [id number] [address] [place] [address] Mar, Diabetes 250.00 ; Anuria 788 .5 ; Nausea and vomiting 787.01 and Diarrhea 787.91 [facility] [address] [place] [id number] [address] [place] [address] Mar, Diabetes 250.00 [facility] [address] [place] [id number] [place] [address] Mar, [facility] [address] [address] Mar, Diabetes 250.00 [facility] [address] [place] [id number] [address] [place] [address] Mar, [facility] [address] [address] Mar, [facility] [address] [place] [id number] [address] [place] [address] Mar, [facility] [address] [place] [id number] [address] [place] [id number] Mar, [facility] [address] [place] [id number] [address] [place] [address] Mar, Bipolar I disorder, most rec ent episode (or current) mixed, moderate 296.62 and Major depressive disorder, recurrent episode, severe, specified as with psychotic behavior 296.34 [facility] [address] [place] [id number] [address] [place] [address] Mar, Magnesium deficiency 275.2 ; Hypokalemia 276.8 ; Nausea & vomiting 787.01 and Diabetes mellitus type 2, uncontrolled 250.02 [facility] [address] [address] Feb, [facility] [address] [address] Feb, Bipolar I disorder, most rec ent episode (or current) mixed, moderate 296.62 [place] [address] [address] Feb, Nausea and vomiting 787.01 ; Left elbow pain 719.42 ; Anuria 788.5 and Diabetes 250.00 [place] [address] [address] Feb, [place] [address] [address] Feb, Hypopotassemia 276.8 and Hyp okalemia 276.8 [place] [address] [address] Feb, Hypopotassemia 276.8 and Hyp okalemia 276.8 [place] [address] [address] Feb, Seborrheic keratoses 702.19 [place] [address] [address] Feb, Hypopotassemia 276.8 and Low magnesium levels 275.2 [place] [address] [address] January, [facility] [address] [address] January, [place] [address] [address] January, [facility] [address] [address] January, Scalp lesion 709.9 [facility] [address] [id number] [address] [place] [address] January, [facility] [address] [id number] [address] [place] [address] Dec, Tear of medial cartilage or meniscus of knee, current 836.0 and Chondromalacia 733.92 [facility] [address] [id number] [address] [place] [phone] Dec, [facility] [address] [id number] [address] [place] [address] Dec, [facility] [address] [id number] [address] [place] [address] Dec, Squamous cell carcinoma, 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 [facility] [address] [id number] [address] [place] [address] Dec, [facility] [address] [id number] [address] [place] [address] Dec, [facility] [address] [id number] [address] [place] [phone] Nov, [facility] [address] [id number] [address] [place] [address] Nov, [facility] [address] [id number] [address] [place] [phone] Nov, [facility] [address] [id number] [address] [place] [phone] Nov, [facility] [address] [id number] [address] [place] [phone] Nov, [facility] [address] [id number] [address] [place] [id number] Nov, [facility] [address] [id number] [address] [place] [phone] Nov, [facility] [address] [id number] [address] [place] [phone] Nov, [facility] [address] [id number] [address] [place] [address], [place] [address] Nov, [facility] [address] [id number] [address] [place] [address], [place] [address] Nov, [facility] [address] [id number] [address] [place] [address], [place] [address] Nov, [facility] [address] [id number] [address] [place] [address], [place] [address] Nov, [facility] [address] [id number] [address] [place] [address], [place] [address] Oct, 2014 [facility] [address] [id number] [address] [place] [address], [place] [address] Oct, 2014 [facility] [address] [id number] [address] [place] [address], [place] [address] Oct, 2014 [facility] [address] [id number] [address] [place] [phone] Oct, 2014 [facility] [address] [id number] [address] [place] [address], [place] [address] Oct, 2014 [facility] [address] [id number] [address] [place] [address], [place] [address] Oct, 2014 [facility] [address] [id number] [address] [place] [address], [place] [address] Oct, 2014 [facility] [address] [id number] [address] [place] [id number] Oct, 2014 [facility] [address] [id number] [address] [place] [id number] Oct, [facility] [address] [id number] [address] [place] [id number] Sep, [facility] [address] [id number] [address] [place] [id number] Sep, [facility] [address] [id number] [address] [place] [address], [place] [address] Sep, [facility] [address] [id number] [address] [place] [address], [place] [address] Sep, [facility] [address] [id number] [address] [place] [address], [place] [address] Sep, [facility] [address] [id number] [address] [place] [address], [place] [address] Sep, [facility] [address] [id number] [address] [place] [address], [place] [address] Sep, [facility] [address] [id number] [address] [place] [address], [place] [address] Sep, [facility] [address] [id number] [address] [place] [address], [place] [address] Sep, [facility] [address] [id number] [address] [place] [address], [place] [address] Sep, [facility] [address] [id number] [address] [place] [address], [place] [id number] Sep, [facility] [address] [id number] [address] [place] [address], [place] [address] Sep, [facility] [address] [id number] [address] [place] [address], [place] [address] Sep, [facility] [address] [id number] [address] [place] [address], [place] [address] Sep, [facility] [address] [id number] [address] [place] [address], [place] [address] Sep, [facility] [address] [id number] [address] [place] [address], [place] [address] Sep, [facility] [address] [id number] [address] [place] [address], [place] [id number] Aug, [facility] [address] [id number] [address] [place] [address], [place] [address] Aug, [facility] [address] [id number] [facility] [address] Aug, [facility] [address] [id number] [address] [place] [address], [place] [address] Aug, [facility] [address] [id number] [facility] [place] [address] Aug, [facility] [address] [id number] [address] [place] [address], [place] [address] Aug, [facility] [address] [id number] [facility] [place] [address] Aug, [facility] [address] [id number] [address] [place] [address], [place] [address] Aug, [facility] [address] [id number] [address] [place] [address], [place] [id number] Aug, [facility] [address] [id number] [address] [place] [address], [place] [address] Aug, [facility] [address] [id number] [address] [place] [address], [place] [address] Aug, [facility] [place] [id number] Aug, [facility] [address] [id number] [address] [place] [address], [place] [address] Aug, [facility] [address] [id number] [address] [place] [address], [place] [address] Aug, [facility] [address] [id number] [address] [place] [address], [place] [address] Aug, [facility] [address] [id number] [address] [place] [address], [place] [address] Aug, [facility] [address] [id number] [address] [place] [address], [place] [address] Aug, [facility] [address] [id number] [address] [place] [address], [place] [address] Aug, [facility] [address] [id number] [address] [place] [address], [place] [address] 08 Aug, 2014 [facility] [address] [id number] [address] [place] [address], [place] [address] Aug, [facility] [address] [id number] [address] [place] [address], [place] [address] Aug, [facility] [address] [id number] [address] [place] [address], [place] [address] Aug, [facility] [address] [id number] [address] [place] [address], [place] [address] Aug, [facility] [address] [id number] [address] [place] [address], [place] [address] Aug, [facility] [address] [id number] [address] [place] [address], [place] [address] Aug, [facility] [address] [id number] [address] [place] [address], [place] [address] Aug, [facility] [address] [id number] [address] [place] [address], [place] [address] Aug, [facility] [address] [id number] [address] [place] [address], [place] [address] Aug, [facility] [address] [id number] [address] [place] [address], [place] [address] Aug, [facility] [address] [id number] [address] [place] [address], [place] [address] Aug, [facility] [address] [id number] [address] [place] [address], [place] [address] Jul, [facility] [address] [id number] [address] [place] [address], [place] [address] Jul, [facility] [address] [id number] [address] [place] [address], [place] [address] Jul, [facility] [address] [id number] [address] [place] [address], [place] [address] Jul, [facility] [address] [id number] [address] [place] [address], [place] [address] Jul, [facility] [address] [id number] [address] [place] [address], [place] [address] Jul, [facility] [address] [id number] [address] [place] [address], [place] [address] Jul, [facility] [address] [id number] [address] [place] [address], [place] [address] Jul, [facility] [address] [id number] [address] [place] [address], [place] [address] Jul, [facility] [address] [id number] [address] [place] [address], [place] [address] Jul, [facility] [address] [id number] [address] [place] [address], [place] [address] Jun, [facility] [address] [id number] [address] [place] [address], [place] [address] Jun, [facility] [address] [id number] [address] [place] [address], [place] [address] Jun, [facility] [address] [id number] [address] [place] [address], [place] [address] Jun, [facility] [address] [id number] [address] [place] [address], [place] [address] Jun, [facility] [address] [id number] [address] [place] [address], [place] [address] Jun, [facility] [address] [id number] [address] [place] [address], [place] [address] Jun, [facility] [address] [id number] [address] [place] [address], [place] [address] Jun, [facility] [address] [id number] [address] [place] [address], [place] [address] Jun, [facility] [address] [id number] [address] [place] [address], [place] [address] Jun, [facility] [address] [id number] [address] [place] [address], [place] [address] 29 May, 2013 [facility] [address] [id number] [address] [place] [address], [place] [address] 29 Sep, 2013 [facility] [address] [id number] [address] [place] [address], [place] [address] 26 Sep, 2013 [facility] [address] [id number] [address] [place] [address], [place] [address] 26 Sep, 2013 [facility] [address] [id number] [address] [place] [address], [place] [address] 17 May, 2013 [facility] [address] [id number] [address] [place] [address], [place] [address] 17 May, 2013 [facility] [address] [id number] [address] [place] [address], [place] [address] 15 May, 2013 [facility] [address] [id number] [address] [place] [address], [place] [address] 15 May, 2013 [facility] [address] [id number] [address] [place] [address], [place] [address] 15 May, 2013 [facility] [address] [id number] [address] [place] [address], [place] [address] 15 May, 2013 [facility] [address] [id number] [address] [place] [address] 10 Sep, 2013 [facility] [address] [id number] [address] [place] [address], [place] [address] 10 May, 2013 [facility] [address] [id number] [address] [place] [address], [place] [address] 09 Sep, 2013 [facility] [address] [id number] [address] [place] [address], [place] [address] 09 Sep, 2013 [facility] [address] [id number] [facility] [place] [address] May, [facility] [address] [id number] [address] [place] [address], [place] [address] May, [facility] [address] [id number] [facility] [address] Apr, [facility] [address] [id number] [address] [place] [address], [place] [address] Apr, [facility] [address] [id number] [address] [place] [address], [place] [address] Apr, [facility] [address] [id number] [address] [place] [address], [place] [address] Apr, [facility] [address] [id number] [address] [place] [address], [place] [address] Apr, [facility] [address] [id number] [address] [place] [address], [place] [address] Apr, [facility] [address] [id number] [address] [place] [address], [place] [address] Apr, [facility] [address] [id number] [address] [place] [address], [place] [address] Apr, [facility] [address] [id number] [address] [place] [address], [place] [address] Apr, [facility] [address] [id number] [address] [place] [address], [place] [address] Apr, [facility] [address] [id number] [address] [place] [address], [place] [address] Apr, [facility] [address] [id number] [address] [place] [address], [place] [address] Apr, [facility] [address] [id number] [address] [place] [address], [place] [address] Apr, [facility] [address] [id number] [address] [place] [address], [place] [address] Apr, [facility] [address] [id number] [address] [place] [address], [place] [address] Apr, [facility] [address] [id number] [address] [place] [address], [place] [address] Mar, [facility] [address] [id number] [address] [place] [address], [place] [address] Mar, [facility] [address] [id number] [address] [place] [address], [place] [address] Mar, [facility] [address] [id number] [address] [place] [address], [place] [address] Mar, [facility] [address] [id number] [address] [place] [address], [place] [address] Mar, [facility] [address] [id number] [address] [place] [address], [place] [address] Mar, [facility] [address] [id number] [address] [place] [address], [place] [address] Mar, [facility] [address] [id number] [address] [place] [address], [place] [address] Mar, [facility] [address] [id number] [address] [place] [address], [place] [address] Mar, [facility] [address] [id number] [address] [place] [address], [place] [address] Mar, [facility] [address] [id number] [address] [place] [address], [place] [address] Mar, [facility] [address] [id number] [address] [place] [address], [place] [address] Mar, [facility] [address] [id number] [address] [place] [address], [place] [address] Mar, [facility] [address] [id number] [address] [place] [address], [place] [address] Mar, [facility] [address] [id number] [address] [place] [address], [place] [address] Mar, [facility] [address] [id number] [facility] [place] [address] Mar, [facility] [address] [id number] [address] [place] [address], [place] [address] Mar, [facility] [address] [id number] [address] [place] [address], [place] [address] Mar, [facility] [address] [id number] [address] [place] [address], [place] [address] Feb, [facility] [address] [id number] [address] [place] [address], [place] [address] Feb, [facility] [address] [id number] [address] [place] [address], [place] [address] Feb, [facility] [address] [id number] [address] [place] [address], [place] [address] Feb, [facility] [address] [id number] [address] [place] [address], [place] [address] Feb, [facility] [address] [id number] [address] [place] [address], [place] [address] Feb, [facility] [address] [id number] [address] [place] [address], [place] [address] Feb, [facility] [address] [id number] [address] [place] [address], [place] [address] Feb, [facility] [address] [id number] [address] [place] [address], [place] [address] Feb, [facility] [address] [id number] [address] [place] [address], [place] [address] Feb, [facility] [address] [id number] [address] [place] [address], [place] [address] Feb, [facility] [address] [id number] [address] [place] [address], [place] [address] Feb, [facility] [address] [id number] [facility] [place] [address] Feb, [facility] [address] [id number] [facility] [place] [address] Feb, [facility] [address] [id number] [facility] [place] [address] January, [facility] [address] [id number] [facility] [place] [address] January, [facility] [address] [id number] [facility] [place] [address] January, [facility] [address] [id number] [address] [place] [address], [place] [address] January, [facility] [address] [id number] [address] [place] [address], [place] [address] January, [facility] [address] [id number] [address] [place] [address], [place] [address] January, [facility] [address] [id number] [address] [place] [address], [place] [address] January, [facility] [address] [id number] [address] [place] [address], [place] [address] January, [facility] [address] [id number] [address] [place] [address], [place] [address] January, [facility] [address] [id number] [address] [place] [address], [place] [address] January, [facility] [address] [id number] [address] [place] [address], [place] [address] January, [facility] [address] [id number] [address] [place] [address], [place] [address] January, [facility] [address] [id number] [address] [place] [address], [place] [address] January, [facility] [address] [id number] [address] [place] [address], [place] [address] January, [facility] [address] [id number] [facility] [address] Dec, [facility] [address] [id number] [facility] [place] [address] Dec, [facility] [address] [id number] [address] [place] [address], [place] [address] Dec, [facility] [address] [id number] [address] [place] [address], [place] [address] Dec, [facility] [address] [id number] [address] [place] [address], [place] [address] Dec, [facility] [address] [id number] [address] [place] [address], [place] [address] Dec, [facility] [address] [id number] [address] [place] [address], [place] [address] Dec, [facility] [address] [id number] [address] [place] [address], [place] [address] Dec, [facility] [address] [id number] [address] [place] [address], [place] [address] Dec, [facility] [address] [id number] [address] [place] [address], [place] [address] Dec, [facility] [address] [id number] [address] [place] [address], [place] [address] Nov, [facility] [address] [id number] [address] [place] [address], [place] [address] Nov, [facility] [address] [id number] [address] [place] [address], [place] [address] Nov, [facility] [address] [id number] [address] [place] [address], [place] [address] Nov, [facility] [address] [id number] [address] [place] [address], [place] [address] Nov, [facility] [address] [id number] [address] [place] [address], [place] [address] 08 Nov, 2013 [facility] [address] [id number] [address] [place] [address], [place] [address] 05 Nov, 2013 [facility] [address] [id number] [address] [place] [address], [place] [address] 05 Nov, 2013 [facility] [address] [id number] [address] [place] [address], [place] [address] Nov, [facility] [address] [id number] [address] [place] [address], [place] [address] Nov, [facility] [address] [id number] [address] [place] [address], [place] [address] Oct, [facility] [address] [id number] [address] [place] [address], [place] [address] Oct, [facility] [address] [id number] [address] [place] [address], [place] [address] Oct, [facility] [address] [id number] [address] [place] [address], [place] [address] Oct, [facility] [address] [id number] [address] [place] [address], [place] [address] 20 Oct, 2013 [facility] [address] [id number] [address] [place] [address], [place] [address] 20 Oct, 2013 [facility] [address] [id number] [address] [place] [address], [place] [address] 14 Oct, 2013 [facility] [address] [id number] [address] [place] [address], [place] [address] 14 Oct, 2013 [facility] [address] [id number] [address] [place] [address], [place] [address] 05 Oct, 2013 [facility] [address] [id number] [address] [place] [address], [place] [address] 05 Oct, 2013 [facility] [address] [id number] [address] [place] [address], [place] [address] Oct, [facility] [address] [id number] [address] [place] [address], [place] [address] Oct, [facility] [address] [id number] [address] [place] [address], [place] [address] Oct, [facility] [address] [id number] [address] [place] [address], [place] [address] Oct, [facility] [address] [id number] [address] [place] [address], [place] [address] Sep, [facility] [address] [id number] [address] [place] [address], [place] [address] Sep, [facility] [address] [id number] [address] [place] [address], [place] [address] Sep, [facility] [address] [id number] [address] [place] [address], [place] [address] Sep, [facility] [address] [id number] [address] [place] [address], [place] [address] Sep, [facility] [address] [id number] [address] [place] [address], [place] [address] Sep, [facility] [address] [id number] [address] [place] [address], [place] [address] Sep, [facility] [address] [id number] [address] [place] [address], [place] [address] Sep, [facility] [address] [id number] [address] [place] [address], [place] [address] Sep, [facility] [address] [id number] [address] [place] [address], [place] [address] Sep, [facility] [address] [id number] [address] [place] [address], [place] [address] Aug, [facility] [address] [id number] [address] [place] [address], [place] [address] Aug, [facility] [address] [id number] [address] [place] [address], [place] [address] Jul, [facility] [address] [id number] [address] [place] [address], [place] [address] Jul, [facility] [address] [id number] [address] [place] [address], [place] [address] Jul, [facility] [address] [id number] [address] [place] [address], [place] [address] Jul, [facility] [address] [id number] [address] [place] [address], [place] [address] Jul, [facility] [address] [id number] [address] [place] [address], [place] [address] Jul, [facility] [address] [id number] [address] [place] [address], [place] [address] Jul, [facility] [address] [id number] [address] [place] [address], [place] [address] Jul, [facility] [address] [id number] [address] [place] [address], [place] [address] Jul, [facility] [address] [id number] [address] [place] [address], [place] [address] Jul, [facility] [address] [id number] [address] [place] [address], [place] [address] Jul, [facility] [address] [id number] [address] [place] [address], [place] [address] Jul, [facility] [address] [id number] [address] [place] [address], [place] [address] Jul, [facility] [address] [id number] [address] [place] [address], [place] [address] Jul, [facility] [address] [id number] [address] [place] [address], [place] [address] Jul, [facility] [address] [id number] [address] [place] [address], [place] [address] Jul, [facility] [address] [id number] [address] [place] [address], [place] [address] Jul, 2012 [facility] [address] [id number] [address] [place] [address], [place] [address] Jul, [facility] [address] [id number] [address] [place] [address], [place] [address] Jul, 2012 [facility] [address] [id number] [address] [place] [address], [place] [address] Jun, 2012 [facility] [address] [id number] [address] [place] [address], [place] [address] Jun, 2012 [facility] [address] [id number] [address] [place] [address], [place] [address] Jun, 2012 [facility] [address] [id number] [address] [place] [address], [place] [address] Jun, 2012 [facility] [address] [id number] [address] [place] [address] Jun, [facility] [address] [id number] [address] [place] [address] Jun, [facility] [address] [id number] [address] [place] [address] Jun, [facility] [address] [id number] [address] [place] [address] Jun, [facility] [address] [id number] [address] [place] [id number] Jun, [facility] [address] [id number] [address] [place] [id number] Jun, [facility] [address] [id number] [address] [place] [id number] Jun, [facility] [address] [id number] [address] [place] [id number] May, [facility] [address] [id number] [address] [place] [id number] 25 May, 2013 [facility] [address] [id number] [address] [place] [address], [place] [address] 19 May, 2012 [facility] [address] [id number] [address] [place] [address], [place] [address] 17 May, 2013 [facility] [address] [id number] [address] [place] [address], [place] [address] 11 May, 2012 [facility] [address] [id number] [address] [place] [address], [place] [address] 10 May, 2012 [facility] [address] [id number] [address] [place] [address], [place] [address] 09 May, 2013 [facility] [address] [id number] [address] [place] [address], [place] [address] 05 May, 2013 [facility] [address] [id number] [address] [place] [address], [place] [address] Apr, [facility] [address] [id number] [address] [place] [address], [place] [address] Apr, [facility] [address] [id number] [address] [place] [address], [place] [address] Apr, [facility] [address] [id number] [address] [place] [address], [place] [address] Apr, [facility] [address] [id number] [address] [place] [address], [place] [address] Apr, [facility] [address] [id number] [address] [place] [address], [place] [address] Mar, [facility] [address] [id number] [address] [place] [address], [place] [address] Mar, [facility] [address] [id number] [address] [place] [address], [place] [address] Mar, [facility] [address] [id number] [address] [place] [address], [place] [address] Mar, [facility] [address] [id number] [facility] [place] [address] Mar, [facility] [address] [id number] [address] [place] [address], [place] [address] Mar, [facility] [address] [id number] [address] [place] [address], [place] [address] Mar, [facility] [address] [id number] [address] [place] [address], [place] [address] Mar, [facility] [address] [id number] [address] [place] [address], [place] [address] Feb, [facility] [address] [id number] [address] [place] [address], [place] [address] Feb, [facility] [address] [id number] [address] [place] [address], [place] [address] January, [facility] [address] [id number] [address] [place] [address], [place] [address] January, [facility] [address] [id number] [address] [place] [address], [place] [address] Dec, [facility] [address] [id number] [address] [place] [address], [place] [address] Dec, [facility] [address] [id number] [address] [place] [address], [place] [address] Nov, [facility] [address] [id number] [address] [place] [address], [place] [address] Nov, [facility] [address] [id number] [address] [place] [address], [place] [address] Nov, [facility] [address] [id number] [address] [place] [address], [place] [address] Nov, [facility] [address] [id number] [address] [place] [address], [place] [address] Oct, [facility] [address] [id number] [address] [place] [address], [place] [address] Oct, [facility] [address] [id number] [address] [place] [address], [place] [address] Oct, [facility] [address] [id number] [address] [place] [address], [place] [address] Oct, [facility] [address] [id number] [address] [place] [address], [place] [address] 16 Oct, 2012 [facility] [address] [id number] [address] [place] [address], [place] [address] 14 Oct, 2012 [facility] [address] [id number] [address] [place] [address], [place] [address] 08 Oct, 2012 [facility] [address] [id number] [address] [place] [address], [place] [address] 07 Oct, 2012 [facility] [address] [id number] [address] [place] [address], [place] [address] 03 Oct, 2012 [facility] [address] [id number] [address] [place] [address], [place] [address] Sep, [facility] [address] [id number] [address] [place] [address], [place] [address] Sep, [facility] [address] [id number] [address] [place] [address], [place] [address] Sep, [facility] [address] [id number] [address] [place] [address], [place] [address] Sep, [facility] [address] [id number] [address] [place] [address], [place] [address] Sep, [facility] [address] [id number] [address] [place] [address], [place] [address] Sep, [facility] [address] [id number] [address] [place] [address], [place] [address] 09 Sep, 2012 [facility] [address] [id number] [address] [place] [address], [place] [address] 08 Sep, 2012 [facility] [address] [id number] [address] [place] [address], [place] [address] 31 Aug, 2012 [facility] [address] [id number] [address] [place] [address], [place] [address] Aug, [facility] [address] [id number] [address] [place] [address], [place] [address] Aug, [facility] [address] [id number] [address] [place] [address], [place] [address] Aug, [facility] [address] [id number] [address] [place] [address], [place] [address] Aug, [facility] [address] [id number] [address] [place] [address], [place] [address] Aug, [facility] [address] [id number] [address] [place] [address], [place] [address] Aug, [facility] [address] [id number] [address] [place] [address], [place] [address] Aug, [facility] [address] [id number] [address] [place] [address], [place] [address] Jul, [facility] [address] [id number] [address] [place] [address], [place] [address] Jul, [facility] [address] [id number] [address] [place] [address], [place] [address] Jul, [facility] [address] [id number] [address] [place] [address], [place] [address] Jul, [facility] [address] [id number] [address] [place] [address], [place] [address] Jul, [facility] [address] [id number] [address] [place] [address], [place] [address] Jul, [facility] [address] [id number] [address] [place] [address], [place] [address] Jun, [facility] [address] [id number] [address] [place] [address], [place] [address] Jun, [facility] [address] [id number] [address] [place] [address], [place] [address] Jun, [facility] [address] [id number] [address] [place] [address], [place] [address] Jun, [facility] [address] [id number] [address] [place] [address], [place] [address] Jun, [facility] [address] [id number] [address] [place] [address], [place] [address] Jun, [facility] [address] [id number] [address] [place] [address], [place] [address] Jun, [facility] [address] [id number] [address] [place] [address], [place] [address] Jun, [facility] [address] [id number] [address] [place] [address], [place] [address] Jun, [facility] [address] [id number] [address] [place] [address], [place] [address] 26 May, 2012 [facility] [address] [id number] [address] [place] [address], [place] [address] 24 May, 2012 [facility] [address] [id number] [address] [place] [address], [place] [address] 18 May, 2012 [facility] [address] [id number] [address] [place] [address], [place] [address] 30 Apr, 2012 [facility] [address] [id number] [address] [place] [address], [place] [address] 29 Apr, 2012 [facility] [address] [id number] [address] [place] [address], [place] [address] 18 Apr, 2012 [facility] [address] [id number] [address] [place] [address], [place] [address] 14 Apr, 2012 [facility] [address] [id number] [address] [place] [address], [place] [address] 10 Apr, 2012 [facility] [address] [id number] [address] [place] [address], [place] [address] Apr, [facility] [address] [id number] [address] [place] [address], [place] [address] Mar, [facility] [address] [id number] [address] [place] [address], [place] [address] Mar, [facility] [address] [id number] [address] [place] [address], [place] [address] Mar, [facility] [address] [id number] [address] [place] [address], [place] [address] Mar, [facility] [address] [id number] [address] [place] [address], [place] [address] Feb, [facility] [address] [id number] [address] [place] [address], [place] [address] Feb, [facility] [address] [id number] [address] [place] [address], [place] [address] Feb, [facility] [address] [id number] [address] [place] [address], [place] [address] Feb, [facility] [address] [id number] [address] [place] [address], [place] [address] Feb, [facility] [address] [id number] [address] [place] [address], [place] [address] January, [facility] [address] [id number] [address] [place] [address], [place] [address] January, [facility] [address] [id number] [address] [place] [address], [place] [address] January, [facility] [address] [id number] [address] [place] [address], [place] [address] January, [facility] [address] [id number] [address] [place] [address], [place] [address] January, [facility] [address] [id number] [address] [place] [address], [place] [address] January, [facility] [address] [id number] [address] [place] [address], [place] [address] Dec, [facility] [address] [id number] [address] [place] [address], [place] [address] 24 Dec, 2011 [facility] [address] [id number] [address] [place] [address], [place] [address] 17 Dec, 2011 [facility] [address] [id number] [address] [place] [address], [place] [address] Dec, [facility] [address] [id number] [address] [place] [address], [place] [address] Dec, [facility] [address] [id number] [address] [place] [address], [place] [address] 27 Nov, 2011 [facility] [address] [id number] [address] [place] [address], [place] [address] 14 Nov, 2011 [facility] [address] [id number] [address] [place] [address], [place] [address] Nov, [facility] [address] [id number] [address] [place] [address], [place] [address] Nov, [facility] [address] [id number] [address] [place] [address], [place] [address] 29 Oct, 2011 [facility] [address] [id number] [address] [place] [address], [place] [address] Oct, [facility] [address] [id number] [address] [place] [address], [place] [address] 24 Oct, 2011 [facility] [address] [id number] [address] [place] [address], [place] [address] 13 Oct, 2011 [facility] [address] [id number] [address] [place] [address], [place] [address] 08 Oct, 2011 [facility] [address] [id number] [address] [place] [address], [place] [address] Sep, [facility] [address] [id number] [address] [place] [address], [place] [address] Sep, [facility] [address] [id number] [address] [place] [address], [place] [address] Sep, [facility] [address] [id number] [address] [place] [address], [place] [address] Sep, [facility] [address] [id number] [address] [place] [address], [place] [address] Sep, [facility] [address] [id number] [address] [place] [address], [place] [address] Sep, [facility] [address] [id number] [address] [place] [address], [place] [address] Aug, [facility] [address] [id number] [address] [place] [address], [place] [address] Aug, [facility] [address] [id number] [address] [place] [address], [place] [address] Aug, [facility] [address] [id number] [address] [place] [address], [place] [address] Jul, [facility] [address] [id number] [address] [place] [address], [place] [address] Jul, [facility] [address] [id number] [address] [place] [address], [place] [address] Jul, [facility] [address] [id number] [address] [place] [address], [place] [address] Jul, [facility] [address] [id number] [address] [place] [address], [place] [address] Jun, [facility] [address] [id number] [address] [place] [address], [place] [address] Jun, [facility] [address] [id number] [address] [place] [address], [place] [address] Jun, [facility] [address] [id number] [address] [place] [address], [place] [address] Jun, [facility] [address] [id number] [address] [place] [address], [place] [address] 10 Jun, 2011 [facility] [address] [id number] [address] [place] [address], [place] [address] 10 Jun, 2011 [facility] [address] [id number] [address] [place] [address], [place] [address] 11 Mar, 2011 [facility] [address] [id number] [address] [place] [address], [place] [address] 18 Dec, 2010 [facility] [address] [id number] [address] [place] [address], [place] [address] 11 Dec, 2010 [facility] [address] [id number] [address] [place] [address], [place] [address] 18 Nov, 2010 [facility] [address] [id number] [address] [place] [address], [place] [address] 16 Nov, 2010 [facility] [address] [id number] [address] [place] [address], [place] [address] 10 Sep, 2010 [facility] [address] [id number] [address] [place] [address], [place] [address] 31 Aug, 2010 [facility] [address] [id number] [address] [place] [address], [place] [address] 29 Aug, 2010 [facility] [address] [id number] [address] [place] [address], [place] [address] 29 Aug, 2010 [facility] [address] [id number] [address] [place] [address], [place] [address] 29 Aug, 2010 [facility] [address] [id number] [address] [place] [address], [place] [address] 27 Aug, 2010 [facility] [address] [id number] [address] [place] [address], [place] [address] 14 Aug, 2010 [facility] [address] [id number] [address] [place] [address], [place] [address] 08 Aug, 2010 [facility] [address] [id number] [address] [place] [address], [place] [address] 08 Aug, 2010 [facility] [address] [id number] [address] [place] [address], [place] [address] Aug, [facility] [address] [id number] [address] [place] [address], [place] [address] Aug, [facility] [address] [id number] [address] [place] [address], [place] [address] Aug, [facility] [address] [id number] [address] [place] [address] Aug, [facility] [address] [id number] [address] [place] [address], [place] [address] Jul, [facility] [address] [id number] [address] [place] [address] Jul, [facility] [address] [id number] [address] [place] [address], [place] [address] Jul, [facility] [address] [id number] [address] [place] [id number] Jul, [facility] [address] [id number] [address] [place] [address] Jul, [facility] [address] [id number] [address] [place] [address] Jul, [facility] [address] [id number] [address] [place] [address] 24 Jun, 2010 [facility] [address] [id number] [address] [place] [address] Jun, [facility] [address] [id number] [address] [place] [address] Jun, [facility] [address] [id number] [address] [place] [id number] Jun, [facility] [address] [id number] [address] [place] [address] Apr, [facility] [address] [id number] [address] [place] [address], [place] [address] Mar, [facility] [address] [id number] [address] [place] [address], [place] [address] 17 Feb, 2010 [facility] [address] [id number] [address] [place] [address], [place] [address] January, [facility] [address] [id number] [address] [place] [address], [place] [address] 15 Dec, 2009 [facility] [address] [id number] [address] [place] [address], [place] [address] Nov, [facility] [address] [id number] [address] [place] [address], [place] [address] 31 Aug, 2009 [facility] [address] [id number] [address] [place] [address], [place] [address] Aug, [facility] [address] [id number] [address] [place] [address], [place] [address] Aug, [facility] [address] [id number] [address] [place] [address], [place] [address] Jul, [facility] [address] [id number] [address] [place] [address], [place] [address] Jul, [facility] [address] [id number] [address] [place] [address], [place] [id number] 07 Jul, 2009 [facility] [address] [id number] [address] [place] [address], [place] [address] 30 Jun, 2009 [facility] [address] [id number] [address] [place] [id number] 29 Jun, 2009 [facility] [address] [id number] [address] [place] [address], [place] [address] 26 Jun, 2009 [facility] [address] [id number] [address] [place] [address], [place] [id number] 22 Jun, 2009 [facility] [address] [id number] [address] [place] [phone] Jun, [facility] [address] [facility] [id number] [address] [place] [phone] Jun, [facility] [address] [facility] [id number] [address] [place] [id number] Apr, [facility] [address] [facility] [id number] [address] [place] [phone] Apr, [facility] [address] [facility] [id number] [address] [place] [phone] Feb, [facility] [address] [facility] [id number] [address] [place] [phone] January, [facility] [address] [facility] [id number] [address] [place] [phone] Dec, IMMUNIZATIONS No Known Immunizations SOCIAL HISTORY Never Assessed REASON FOR VISIT PLAN OF CARE VITAL SIGNS MEDICATIONS Unknown Medications RESULTS No Results PROCEDURES Procedure Date Ordered Result Body Site MRI [facility] W/O DYE Oct 20, 2014 INSTRUCTIONS MEDICATIONS ADMINISTERED No Known Medications [...] inability to urinate 09/16/15 Hospitalization History [facility] health ea rly 2000's Hospitalization History hyperkalemia 10/2017 Hospitalization History fluid in lung
--- OUTSIDE RECORDS SUMMARY | 2020-03-01 18:18 | XMS REPORT ---
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 Name Role Phone NOEMI WASHBURN Unavailable PROBLEMS Type Condition ICD9-CM Code XSR50-KS Code Onset Dates Condition S tatus SNOMED Code Problem Cough R05 Active 40540713 Problem Benign prostatic hyperplasia with lower urinary tract symptoms, unspecified morphology N40.1 Active 49985 6007 Problem Eustachian tube dysfunction, unspecified laterality H69.80 Active 91601335 Problem Chronic pain G89.29 Active 3851629 1 Problem DM neuro manif type II E11.49 Active 21294462 Problem Diabetes E11.9 Active 68965205 Problem Leukocytosis D72.829 Active 1387770 06 Problem Falling R29.6 Active 640814142 Problem Pressure ulcer of other site, stage 3 L89.893 Active 172380501 Problem 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 Active 293960583 Problem Eye exam abnormal R93.8 Active 16 3492375 Problem Dysuria R30.0 Active 51299404 Problem Hypokalemia E87.6 Active 03861986 Problem Morbid obesity E66.01 Active 62186 6002 Problem Anxiety F41.9 Active 54409827 Problem Diabetic polyneuropathy associated with type 2 d iabetes mellitus E11.42 Active 62353907 Problem Essential hypertension I10 Active 79692011 Problem Bilateral primary osteoarthritis of knee M17.0 Active 080235705 Problem Polyneuropathy associated with underlying disease G63 Active 533108840 Problem Anemia of chronic illness D63.8 Acti ve 209051165 Problem Lymphocytosis D72.820 Active 243109 09 Problem Retinal edema H35.81 Active 109469 6 Problem Chronic lymphocytic leukemia C91.10 A ctive 20149270 Problem Bipolar disorder, in partial remission, most rec ent episode depressed F31.75 Active 57035180 Problem Pure hypercholesterolemia E78.00 Acti ve 747103856 Problem Primary osteoarthritis of right knee M17.11 Active 842133741037560 Problem Bipolar disorder F31.9 Active 137 63026 Problem Bipolar I disorder, most recent episode (or curr ent) mixed, moderate F31.62 Active 46530967 Problem Chronic diastolic (congestive) heart failure I50.3 2 Active 472599977 Problem Reactive airway disease J45.909 Active 550425045741 Problem Insomnia, unspecified type G47.00 Act sharon 179490492 Problem Other chronic pain G89.29 Active 8 0610215 Problem Other iron deficiency anemia D50.8 A ctive 73781772 Problem Mild cognitive impairment G31.84 Acti ve 409316643 Problem Skin cancer C44.90 Active 15797889 7 ALLERGIES No Information ENCOUNTERS Encounter Location Date Diagnosis [place] [address] [facility] [id number] [address] [place] [phone] Apr, [place] [address] [place] [id number] [address] [place] [phone] Apr, [place] [address] [facility] [id number] [address] [place] [phone] Mar, Bipolar disorder F31.9 and C hronic pain G89.29 [place] [address] [facility] [id number] [address] [place] [phone] Feb, Bipolar disorder F31.9 [place] [address] [facility] [id number] [address] [place] [phone] 17 Feb, 2019 Cellulitis of right upper ex tremity L03.113 and Skin abrasion T14.8XXA [facility] [address] [facility] [id number] [address] [place] [id number] 17 Feb, 2019 Bipolar disorder, in partial remission, most recent episode depressed F31.75 and Mild cognitive impairment G31.84 [place] [address] [facility] [id number] [address] [place] [id number] 13 Feb, 2019 Chronic pain G89.29 [place] [address] [facility] [id number] [address] [place] [phone] 03 Feb, 2019 Bipolar disorder, in partial remission, most recent episode depressed F31.75 and Mild cognitive impairment G31.84 [facility] [address] [id number] [address] [place] [phone] January, Bipolar disorder, in partial remission, most recent episode depressed F31.75 and Mild cognitive impairment G31.84 [facility] [address] [id number] [address] [place] [id number] January, Chronic pain G89.29 and Bipo lar disorder F31.9 [facility] [address] [id number] [address] [place] [id number] January, Bipolar disorder, in partial remission, most recent episode depressed F31.75 and Mild cognitive impairment G31.84 [facility] [address] [id number] [address] [place] [phone] Dec, [facility] [address] [id number] [address] [place] [id number] Dec, Chronic pain G89.29 and Bipo lar disorder F31.9 [facility] [address] [id number] [address] [place] [id number] Dec, Edema of both lower extremit ies R60.0 [facility] [address] [id number] [address] [place] [phone] Dec, Bipolar disorder F31.9 [facility] [address] [id number] [address] [place] [phone] Dec, Bipolar disorder, in partial remission, most recent episode depressed F31.75 and Mild cognitive impairment G31.84 [facility] [address] [id number] [address] [place] [phone] Nov, [facility] [address] [id number] [address] [place] [phone] Nov, Chronic pain G89.29 [facility] [address] [id number] [address] [place] [phone] Nov, Bipolar disorder, in partial remission, most recent episode depressed F31.75 and Mild cognitive impairment G31.84 [place] [address] [place] [id number] [address] [place] [id number] Nov, Bipolar disorder F31.9 [place] [address] [place] [id number] [address] [place] [id number] 04 Nov, 2018 [facility] ; Polyneuropathy associated [...] unspecified morphology N40.1 and Essential hypertension I10 [place] [address] [place] [id number] [address] [place] [phone] Oct, Chronic pain G89.29 [place] [id number] [place] [id number] 18 Oct, 2018 Diabetes E11.9 [place] [address] [place] [id number] [address] [place] [id number] Oct, Bipolar I disorder, most rec ent episode (or current) mixed, moderate F31.62 and Mild cognitive impairment G31.84 [place] [id number] [place] [address] Oct, Bipolar I disorder, most rec ent episode (or current) mixed, moderate F31.62 and Mild cognitive impairment G31.84 [place] [address] [place] [id number] [address] [place] [id number] Sep, Bipolar I disorder, most rec ent episode (or current) mixed, moderate F31.62 and Mild cognitive impairment G31.84 [place] [address] [place] [id number] [address] [place] [id number] Sep, [facility] [address] [id number] [address] [place] [phone] Sep, Diabetes E11.9 ; Hypoxia R09 .02 ; Hyperglycemia R73.9 ; Therapeutic drug monitoring Z51.81 ; BMI 50.0-59.9, adult Z68.43 and Skin cancer C44.90 [place] [address] [facility] [id number] [address] [place] [phone] Sep, Chronic pain G89.29 [place] [address] [id number] [address] [place] [phone] Sep, Bipolar I disorder, most rec ent episode (or current) mixed, moderate F31.62 [place] [address] [facility] [id number] [address] [place] [phone] Sep, [place] [address] [facility] [id number] [address] [place] [phone] Sep, [place] [address] [facility] [id number] [address] [place] [phone] Aug, Chronic pain G89.29 [place] [address] [id number] [address] [place] [phone] Aug, Bipolar I disorder, most rec ent episode (or current) mixed, moderate F31.62 [place] [address] [facility] [id number] [address] [place] [phone] Aug, Bipolar I disorder, most rec ent episode (or current) mixed, moderate F31.62 and Mild cognitive impairment G31.84 [place] [address] [id number] [address] [place] [phone] Jul, [place] [address] [facility] [id number] [address] [place] [id number] Jul, Chronic pain G89.29 [facility] [address] [id number] [address] [place] [id number] Jul, Bipolar I disorder, most rec ent episode (or current) mixed, moderate F31.62 and Mild cognitive impairment G31.84 [facility] [address] [facility] [id number] [address] [place] [phone] Jul, Bipolar I disorder, most rec ent episode (or current) mixed, moderate F31.62 and MCI (mild cognitive impairment) G31.84 [facility] [address] [facility] [id number] [address] [place] [phone] Jul, [facility] [address] [facility] [id number] [address] [place] [phone] Jul, [place] [address] [facility] [id number] [address] [place] [address] Jul, Bipolar I disorder, most rec ent episode (or current) mixed, moderate F31.62 [place] [address] [facility] [id number] [address] [place] [phone] Jul, Chronic pain G89.29 [place] [address] [facility] [id number] [address] [place] [phone] Jun, Bipolar I disorder, most rec ent episode (or current) mixed, moderate F31.62 [place] [address] [place] [id number] [address] [place] [phone] Jun, Pre-procedure lab exam Z01.8 12 [place] [address] [place] [id number] [address] [place] [phone] Jun, [facility] [address] [id number] [place] [id number] Jun, [place] [address] [facility] [id number] [address] [place] [phone] Jun, [place] [address] [place] [id number] [address] [place] [phone] Jun, Forgetfulness R68.89 ; Pre-s yncope R55 ; Localized edema R60.0 ; Other iron deficiency anemia D50.8 and BMI 50.0-59.9, adult Z68.43 [place] [address] [place] [id number] [address] [place] [id number] 05 Jun, 2018 Chronic pain G89.29 [facility] [address] [place] [id number] [address] [place] [id number] 05 Jun, 2018 Chronic pain G89.29 [facility] [address] [place] [id number] [address] [place] [id number] Jun, Bipolar I disorder, most rec ent episode (or current) mixed, moderate F31.62 [facility] [address] [place] [id number] [address] [place] [phone] May, Chronic pain G89.29 [facility] [address] [address] Apr, [place] [address] [place] [id number] [place] [address] Apr, Chronic pain G89.29 [place] [address] [id number] Apr, Primary osteoarthritis of ri t knee M17.11 [place] [address] [address] Mar, [place] [address] [address] Mar, BMI 50.0-59.9, adult Z68.43 and Bipolar disorder, in partial remission, most recent episode depressed F31.75 [place] [address] [place] [id number] [address] [place] [address] Mar, Diabetes E11.9 ; Pure hyperc holesterolemia E78.00 ; Essential hypertension I10 ; Nausea with vomiting, unspecified R11.2 and Headache, unspecified headache type R51 [place] [address] [place] [id number] [address] [place] [phone] Mar, Bipolar I disorder, most rec ent episode (or current) mixed, moderate F31.62 [place] [address] [id number] Mar, Bipolar I disorder, most rec ent episode (or current) mixed, moderate F31.62 [facility] [address] [facility] [id number] [address] [place] [phone] Mar, Chronic pain G89.29 [facility] [address] [facility] [id number] [address] [place] [id number] Mar, Bipolar I disorder, most rec ent episode (or current) mixed, moderate F31.62 [place] [address] [facility] [id number] [address] [place] [phone] Feb, Bipolar I disorder, most rec ent episode (or current) mixed, moderate F31.62 [place] [address] [place] [id number] [address] [place] [id number] Feb, Chronic pain G89.29 [place] [address] [place] [id number] [address] [place] [id number] Feb, Decubitus ulcer of right josselin t, stage 3 L89.893 and BMI 50.0-59.9, adult Z68.43 [place] [address] [facility] [id number] [address] [place] [id number] Feb, Bipolar I disorder, most rec ent episode (or current) mixed, moderate F31.62 [place] [address] [facility] [id number] [address] [place] [phone] Feb, [facility] [address] [facility] [id number] [address] [place] [phone] January, [facility] [address] [facility] [id number] [address] [place] [phone] January, Chronic pain G89.29 [facility] [address] [facility] [id number] [address] [place] [phone] January, Bipolar I disorder, most rec ent episode (or current) mixed, moderate F31.62 [place] [address] [facility] [id number] [address] [place] [phone] January, Bipolar I disorder, most rec ent episode (or current) mixed, moderate F31.62 [place] [address] [facility] [id number] [address] [place] [phone] Dec, Bipolar I disorder, most rec ent episode (or current) mixed, moderate F31.62 and BMI 50.0-59.9, adult Z68.43 [place] [address] [place] [id number] [address] [place] [id number] Dec, Bipolar I disorder, most rec ent episode (or current) mixed, moderate F31.62 [place] [address] [facility] [id number] [address] [place] [phone] Dec, Chronic pain G89.29 [place] [address] [facility] [id number] [address] [place] [address] Dec, DM neuro manif type II E11.4 9 ; Right flank pain R10.9 ; 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 ; Encounter for medication monitoring Z51.81 and BMI 50.0-59.9, adult Z68.43 [place] [address] [place] [id number] [address] [place] [address] Dec, Bipolar I disorder, most rec ent episode (or current) mixed, moderate F31.62 [place] [address] [place] [id number] [address] [place] [address] Nov, Bipolar I disorder, most rec ent episode (or current) mixed, moderate F31.62 [place] [address] [facility] [id number] [address] [place] [phone] Nov, Chronic pain G89.29 [place] [address] [place] [id number] [address] [place] [address] Nov, Bipolar I disorder, most rec ent episode (or current) mixed, moderate F31.62 [place] [address] [facility] [id number] [address] [place] [phone] Nov, Hypokalemia E87.6 [place] [address] [place] [id number] [address] [place] [phone] Nov, Bipolar I disorder, most rec ent episode (or current) mixed, moderate F31.62 [place] [address] [place] [id number] [place] [address] Oct, Chronic pain G89.29 [place] [address] [address] Oct, BMI 50.0-59.9, adult Z68.43 and Bipolar I disorder, most recent episode (or current) mixed, moderate F31.62 [place] [address] [address] Oct, Bipolar I disorder, most rec ent episode (or current) mixed, moderate F31.62 [place] [address] [address] Oct, [place] [address] [address] Oct, Hypokalemia E87.6 [place] [address] [address] Oct, DM neuro manif type II E11.4 9 [place] [address] [address] Oct, Bipolar I disorder, most rec ent episode (or current) mixed, moderate F31.62 [place] [address] [place] [id number] [address] [place] [phone] Oct, Bipolar I disorder, most rec ent episode (or current) mixed, moderate F31.62 [place] [address] [place] [id number] [address] [place] [phone] 14 Oct, 2017 Hyperkalemia E87.5 ; Falling R29.6 ; BMI 50.0-59.9, adult Z68.43 and Acute left ankle pain M25.572 [place] [address] [place] [id number] [address] [place] [phone] 08 Oct, 2017 DM neuro manif type II E11.4 9 [place] [id number] [place] [address] Oct, [place] [address] [place] [id number] [place] [address] Sep, Chronic pain G89.29 [place] [address] [address] Sep, [place] [address] [address] Sep, Bilateral primary osteoarthr itis of knee M17.0 [place] [address] [address] Sep, Generalized edema R60.1 [place] [address] [address] 16 Sep, 2017 Bipolar I disorder, most rec ent episode (or current) mixed, moderate F31.62 [place] [address] [address] 15 Sep, 2017 Hypoxia R09.02 ; Other hyper volemia E87.79 ; Diabetes E11.9 ; Retinal edema H35.81 ; Hypokalemia E87.6 ; 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 ; Anemia of chronic illness D63.8 and BMI 50.0- 59.9, adult Z68.43 [place] [address] [place] [id number] [address] [place] [address] Sep, [address] [address] Sep, Bipolar I disorder, most rec ent episode (or current) mixed, moderate F31.62 [place] [address] [address] Aug, Chronic pain G89.29 [facility] [address] [facility] [id number] [address] [place] [phone] Aug, Generalized edema R60.1 [facility] [address] [facility] [id number] [address] [place] [phone] Aug, [facility] [address] [facility] [id number] [address] [place] [phone] Aug, [facility] [address] [facility] [id number] [address] [place] [phone] 14 Aug, 2017 Bipolar I disorder, most rec ent episode (or current) mixed, moderate F31.62 [place] [address] [facility] [id number] [address] [place] [phone] Aug, Bipolar I disorder, most rec ent episode (or current) mixed, moderate F31.62 [place] [address] [facility] [id number] [address] [place] [address] 04 Aug, 2017 Chronic pain G89.29 [facility] [address] [facility] [id number] [address] [place] [phone] 30 Jul, 2017 Bipolar I disorder, most rec ent episode (or current) mixed, moderate F31.62 [facility] [address] [facility] [id number] [address] [place] [phone] Jul, Bipolar I disorder, most rec ent episode (or current) mixed, moderate F31.62 and BMI 60.0-69.9, adult Z68.44 [facility] [address] [facility] [id number] [address] [place] [phone] 16 Jul, 2017 Bipolar I disorder, most rec ent episode (or current) mixed, moderate F31.62 [place] [address] [facility] [id number] [address] [place] [id number] 06 Jul, 2017 Chronic pain G89.29 [facility] [address] [facility] [id number] [address] [place] [phone] 02 Jul, 2017 Bipolar I disorder, most rec ent episode (or current) mixed, moderate F31.62 [facility] [address] [id number] [address] [place] [id number] 18 Jun, 2017 Polyneuropathy associated wi th underlying disease G63 and Diabetes E11.9 [facility] [address] [id number] [address] [place] [id number] 16 Jun, 2017 Bipolar I disorder, most rec ent episode (or current) mixed, moderate F31.62 [facility] [address] [id number] [address] [place] [phone] Jun, Chronic pain G89.29 [facility] [address] [id number] [address] [place] [id number] May, Bipolar I disorder, most rec ent episode (or current) mixed, moderate F31.62 [facility] [address] [facility] [id number] [address] [place] [phone] 21 May, 2017 Bipolar I disorder, most rec ent episode (or current) mixed, moderate F31.62 [facility] [address] [id number] [address] [place] [id number] 20 May, 2017 Diabetic polyneuropathy asso ciated with type 2 diabetes mellitus E11.42 [facility] [address] [id number] [address] [place] [phone] 18 May, 2017 Bipolar I disorder, most rec ent episode (or current) mixed, moderate F31.62 [facility] [address] [facility] [id number] [address] [place] [phone] 13 May, 2017 Bipolar I disorder, most rec ent episode (or current) mixed, moderate F31.62 [facility] [address] [id number] [address] [place] [phone] May, Chronic pain G89.29 [facility] [address] [facility] [id number] [address] [place] [phone] Apr, Bipolar I disorder, most rec ent episode (or current) mixed, moderate F31.62 [facility] [address] [facility] [id number] [address] [place] [id number] Apr, [facility] [address] [id number] [address] [place] [phone] Apr, Chronic pain G89.29 and DM n euro manif type II E11.49 [facility] [address] [facility] [id number] [address] [place] [id number] Apr, [facility] [address] [facility] [id number] [address] [place] [phone] Apr, Bipolar I disorder, most rec ent episode (or current) mixed, moderate F31.62 [facility] [address] [facility] [id number] [address] [place] [phone] Apr, Chronic pain G89.29 [facility] [address] [facility] [id number] [address] [place] [phone] Apr, Iliotibial band syndrome, le ft M76.32 [facility] [address] [facility] [id number] [address] [place] [id number] Apr, Bipolar I disorder, most rec ent episode (or current) mixed, moderate F31.62 [facility] [address] [facility] [id number] [address] [place] [phone] Mar, Bipolar I disorder, most rec ent episode (or current) mixed, moderate F31.62 [facility] [address] [facility] [id number] [address] [place] [id number] Mar, Bipolar I disorder, most rec ent episode (or current) mixed, moderate F31.62 [facility] [address] [facility] [id number] [address] [place] [id number] Mar, [facility] [address] [facility] [id number] [address] [place] [phone] Mar, Bipolar I disorder, most rec ent episode (or current) mixed, moderate F31.62 [facility] [address] [facility] [id number] [address] [place] [id number] Mar, Chronic pain G89.29 [facility] [address] [id number] [address] [place] [id number] Mar, Bipolar I disorder, most rec ent episode (or current) mixed, moderate F31.62 [facility] [address] [id number] [address] [place] [phone] Mar, Bipolar I disorder, most rec ent episode (or current) mixed, moderate F31.62 [facility] [address] [id number] [address] [place] [id number] Mar, Acute pain of left knee M25. 562 ; Left hip pain M25.552 ; Generalized edema R60.1 and Tongue swelling R22.0 [facility] [address] [id number] [address] [place] [id number] Mar, [facility] [address] [id number] [address] [place] [id number] Feb, Chronic pain G89.29 [facility] [address] [id number] [address] [place] [id number] Feb, Diabetes E11.9 [facility] [address] [id number] [address] [place] [id number] January, Chronic pain G89.29 [facility] [address] [facility] [id number] [address] [place] [id number] January, [facility] [address] [id number] [address] [place] [id number] January, Bipolar I disorder, most rec ent episode (or current) mixed, moderate F31.62 [facility] [address] [id number] [address] [place] [id number] Dec, Bipolar I disorder, most rec ent episode (or current) mixed, moderate F31.62 [facility] [address] [facility] [id number] [address] [place] [id number] Dec, Chronic pain G89.29 [facility] [address] [id number] [address] [place] [id number] Dec, Bipolar I disorder, most rec ent episode (or current) mixed, moderate F31.62 [facility] [address] [place] [id number] [address] [place] [id number] Dec, Diabetes E11.9 ; Essential h ypertension I10 ; Chronic pain G89.29 and Morbid obesity E66.01 [facility] [address] [place] [id number] [address] [place] [id number] Dec, [facility] [address] [facility] [id number] [address] [place] [id number] Dec, Bipolar I disorder, most rec ent episode (or current) mixed, moderate F31.62 [facility] [address] [place] [id number] [address] [place] [id number] Dec, Bipolar I disorder, most rec ent episode (or current) mixed, moderate F31.62 [facility] [address] [place] [id number] [address] [place] [id number] Nov, Chronic pain G89.29 [facility] [address] [place] [id number] [address] [place] [id number] Nov, Bipolar I disorder, most rec ent episode (or current) mixed, moderate F31.62 [facility] [address] [place] [id number] [address] [place] [id number] Nov, [facility] [address] [facility] [id number] [address] [place] [id number] Nov, Bipolar I disorder, most rec ent episode (or current) mixed, moderate F31.62 [facility] [address] [place] [id number] [address] [place] [id number] Nov, Bipolar I disorder, most rec ent episode (or current) mixed, moderate F31.62 [facility] [address] [place] [id number] [address] [place] [phone] Nov, [facility] [address] [place] [id number] [address] [place] [id number] Nov, [facility] [address] [facility] [id number] [address] [place] [id number] Nov, [facility] [address] [facility] [id number] [address] [place] [phone] Oct, Chronic pain G89.29 [facility] [address] [facility] [id number] [address] [place] [id number] Oct, Bipolar I disorder, most rec ent episode (or current) mixed, moderate F31.62 [facility] [address] [facility] [id number] [address] [place] [id number] Oct, [facility] [address] [facility] [id number] [address] [place] [id number] Oct, Chronic pain G89.29 ; Diabet es E11.9 ; Anxiety F41.9 and 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 [facility] [address] [facility] [id number] [address] [place] [id number] Oct, [facility] [address] [facility] [id number] [address] [place] [phone] Oct, Diabetes E11.9 [facility] [address] [facility] [id number] [address] [place] [id number] Oct, Bipolar I disorder, most rec ent episode (or current) mixed, moderate F31.62 [facility] [address] [facility] [id number] [address] [place] [id number] Sep, Chronic pain G89.29 [facility] [address] [facility] [id number] [address] [place] [id number] Sep, Chronic pain G89.29 [facility] [address] [facility] [id number] [address] [place] [id number] Aug, Chronic pain G89.29 [facility] [address] [facility] [id number] [address] [place] [id number] Jul, [facility] [address] [facility] [id number] [address] [place] [id number] Jul, Diabetes E11.9 [facility] [address] [facility] [id number] [address] [place] [id number] Jul, Chronic pain G89.29 [facility] [address] [facility] [id number] [address] [place] [id number] Jul, Bipolar I disorder, most rec ent episode (or current) mixed, moderate F31.62 [facility] [address] [facility] [id number] [address] [place] [id number] Jun, Bipolar I disorder, most rec ent episode (or current) mixed, moderate F31.62 [place] [address] [facility] [id number] [address] [place] [phone] Jun, [facility] [address] [facility] [id number] [address] [place] [id number] Jun, Bipolar I disorder, most rec ent episode (or current) mixed, moderate F31.62 [place] [id number] [facility] [id number] [address] [place] [id number] 30 May, 2016 Insomnia, unspecified type G 47.00 [facility] [address] [facility] [id number] [address] [place] [id number] May, Bipolar I disorder, most rec ent episode (or current) mixed, moderate F31.62 [facility] [address] [facility] [id number] [address] [place] [phone] 14 May, 2016 [facility] [address] [facility] [id number] [address] [place] [phone] 08 May, 2016 Bipolar I disorder, most rec ent episode (or current) mixed, moderate F31.62 [facility] [address] [facility] [id number] [address] [place] [id number] 06 May, 2016 Diabetes E11.9 and Essential hypertension I10 [facility] [address] [facility] [id number] [address] [place] [phone] Apr, Chronic pain G89.29 [facility] [address] [id number] [address] [place] [id number] Apr, Bipolar I disorder, most rec ent episode (or current) mixed, moderate F31.62 [facility] [address] [facility] [id number] [address] [place] [phone] Apr, [facility] [address] [facility] [id number] [address] [place] [id number] Apr, [facility] [address] [facility] [id number] [address] [place] [phone] Mar, Chronic pain G89.29 ; Headac he, unspecified headache type R51 ; Neuropathy G62.9 ; Pain of right hip joint M25.551 and Essential hypertension I10 [place] [address] [facility] [id number] [address] [place] [id number] Mar, Chronic pain G89.29 [facility] [address] [facility] [id number] [address] [place] [phone] Mar, Bipolar I disorder, most rec ent episode (or current) mixed, moderate F31.62 [place] [address] [facility] [id number] [address] [place] [phone] Feb, Bipolar I disorder, most rec ent episode (or current) mixed, moderate F31.62 and Insomnia, unspecified type G47.00 [place] [address] [facility] [id number] [address] [place] [phone] Feb, Chronic pain G89.29 [facility] [address] [facility] [id number] [address] [place] [id number] Feb, Bipolar I disorder, most rec ent episode (or current) mixed, moderate F31.62 [place] [address] [facility] [id number] [address] [place] [phone] January, Bipolar I disorder, most rec ent episode (or current) mixed, moderate F31.62 [place] [address] [facility] [id number] [address] [place] [id number] January, Chronic pain G89.29 [facility] [address] [facility] [id number] [address] [place] [id number] January, Chronic pain G89.29 and Esse ntial hypertension I10 [facility] [address] [facility] [id number] [address] [place] [phone] January, Bipolar I disorder, most rec ent episode (or current) mixed, moderate F31.62 [facility] [address] [facility] [id number] [address] [place] [id number] Dec, [facility] [address] [facility] [id number] [address] [place] [phone] Dec, [facility] [address] [place] [id number] [address] [place] [id number] Dec, [facility] [address] [facility] [id number] [address] [place] [id number] Dec, [facility] [address] [facility] [id number] [address] [place] [id number] Nov, Reactive airway disease J45. 909 [facility] [address] [place] [id number] [address] [place] [phone] Nov, [facility] [address] [facility] [id number] [address] [place] [phone] Nov, [facility] [address] [facility] [id number] [address] [place] [phone] Nov, [facility] [address] [facility] [id number] [address] [place] [phone] Nov, [facility] [address] [place] [id number] [address] [place] [id number] Nov, Onychomycosis B35.1 ; Hammer toe M20.40 ; [place] or callus L84 and DM neuro manif type II E11.49 [facility] [address] [id number] Nov, Chronic pain G89.29 ; Leukoc ytosis D72.829 and Diabetes E11.9 [place] [address] [id number] Nov, [place] [address] [id number] Oct, Bronchitis J40 [place] [address] [id number] Oct, [place] [address] [address] Oct, [place] [address] [address] Oct, Mastoiditis, unspecified lat erality H70.90 and Type 2 diabetes mellitus with complication E11.8 [place] [address] [id number] Sep, [place] [address] [id number] Sep, Dysuria R30.0 ; Cough R05 ; Benign prostatic hyperplasia with lower urinary tract symptoms, unspecified morphology N40.1 ; Hypokalemia E87.6 and Eustachian tube dysfunction, unspecified laterality H69.80 [place] [address] [id number] Sep, Moderate mixed bipolar I dis order F31.62 [place] [address] [address] Sep, Hypokalemia E87.6 [place] [address] [id number] Sep, [place] [address] [id number] Sep, Upper respiratory tract infe ction, unspecified type J06.9 [facility] [address] [id number] [address] [place] [id number] Aug, [facility] [address] [id number] [address] [place] [id number] Aug, Dysuria R30.0 [facility] [address] [id number] [address] [place] [phone] Aug, [facility] [address] [id number] [address] [place] [phone] Jul, [facility] [address] [id number] [address] [place] [id number] Jul, [facility] [address] [id number] [address] [place] [id number] Jul, [facility] [address] [id number] [address] [place] [phone] Jul, [facility] [address] [id number] [address] [place] [id number] Jun, [facility] [address] [id number] [address] [place] [phone] Jun, [facility] [address] [id number] [address] [place] [id number] Jun, [facility] [address] [facility] [id number] [address] [place] [phone] May, [facility] [address] [id number] [address] [place] [phone] May, Bipolar I disorder, most rec ent episode (or current) mixed, moderate 296.62 [facility] [address] [id number] [address] [place] [id number] 16 May, 2015 [facility] [address] [facility] [id number] [address] [place] [id number] May, Bipolar I disorder, most rec ent episode (or current) mixed, moderate 296.62 and Major depressive disorder, recurrent episode, severe, specified as with psychotic behavior 296.34 [facility] [address] [id number] [address] [place] [id number] May, Bipolar I disorder, most rec ent episode (or current) mixed, moderate 296.62 [facility] [address] [id number] [address] [place] [id number] May, [facility] [address] [id number] [address] [place] [phone] Apr, [facility] [address] [id number] [address] [place] [id number] Apr, [facility] [address] [facility] [id number] [address] [place] [id number] Apr, Unspecified disorder of kidn ey and ureter 593.9 and Diabetes mellitus type 2, uncontrolled 250.02 [facility] [address] [facility] [id number] [address] [place] [id number] Apr, [facility] [address] [id number] [address] [place] [phone] Apr, [facility] [address] [facility] [id number] [address] [place] [phone] Apr, [facility] [address] [facility] [id number] [address] [place] [phone] Apr, [facility] [address] [id number] [address] [place] [id number] Apr, Diabetes mellitus type II, u ncontrolled 250.02 [facility] [address] [id number] [address] [place] [id number] Apr, [facility] [address] [facility] [id number] [address] [place] [phone] Mar, [facility] [address] [facility] [id number] [address] [place] [phone] Mar, [facility] [address] [place] [id number] [address] [place] [id number] Mar, [facility] [address] [place] [id number] [address] [place] [id number] Mar, Major depressive disorder, r ecurrent episode, severe, specified as with psychotic behavior 296.34 and Bipolar I disorder, most recent episode (or current) mixed, moderate 296.62 [facility] [address] [place] [id number] [address] [place] [address] Mar, Diabetes 250.00 ; Anuria 788 .5 ; Nausea and vomiting 787.01 and Diarrhea 787.91 [facility] [address] [place] [id number] [address] [place] [address] Mar, Diabetes 250.00 [facility] [address] [place] [id number] [place] [phone] Mar, [facility] [address] [id number] Mar, Diabetes 250.00 [facility] [address] [place] [id number] [address] [place] [id number] Mar, [facility] [address] [id number] Mar, [facility] [address] [place] [id number] [address] [place] [id number] Mar, [facility] [address] [place] [id number] [address] [place] [id number] Mar, [facility] [address] [place] [id number] [address] [place] [id number] Mar, Bipolar I disorder, most rec ent episode (or current) mixed, moderate 296.62 and Major depressive disorder, recurrent episode, severe, specified as with psychotic behavior 296.34 [facility] [address] [place] [id number] [address] [place] [id number] Mar, Magnesium deficiency 275.2 ; Hypokalemia 276.8 ; Nausea & vomiting 787.01 and Diabetes mellitus type 2, uncontrolled 250.02 [facility] [address] [id number] Feb, [facility] [address] [id number] Feb, Bipolar I disorder, most rec ent episode (or current) mixed, moderate 296.62 [place] [address] [id number] Feb, Nausea and vomiting 787.01 ; Left elbow pain 719.42 ; Anuria 788.5 and Diabetes 250.00 [place] [address] [id number] Feb, [place] [address] [id number] Feb, Hypopotassemia 276.8 and Hyp okalemia 276.8 [place] [address] [id number] Feb, Hypopotassemia 276.8 and Hyp okalemia 276.8 [place] [address] [id number] Feb, Seborrheic keratoses 702.19 [place] [address] [id number] Feb, Hypopotassemia 276.8 and Low magnesium levels 275.2 [place] [address] [address] January, [facility] [address] [address] January, [place] [address] [id number] January, [facility] [address] [id number] January, Scalp lesion 709.9 [facility] [address] [id number] [address] [place] [phone] January, [facility] [address] [id number] [address] [place] [id number] Dec, Tear of medial cartilage or meniscus of knee, current 836.0 and Chondromalacia 733.92 [facility] [address] [id number] [address] [place] [id number] Dec, [facility] [address] [id number] [address] [place] [id number] Dec, [facility] [address] [id number] [address] [place] [id number] Dec, Squamous cell carcinoma, 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 [facility] [address] [id number] [address] [place] [phone] Dec, [facility] [address] [id number] [address] [place] [phone] Dec, [facility] [address] [id number] [address] [place] [phone] Nov, [facility] [address] [id number] [address] [place] [phone] Nov, [facility] [address] [id number] [address] [place] [id number] Nov, [facility] [address] [id number] [address] [place] [phone] Nov, [facility] [address] [id number] [address] [place] [id number] Nov, [facility] [address] [id number] [address] [place] [phone] Nov, [facility] [address] [id number] [address] [place] [phone] Nov, [facility] [address] [id number] [address] [place] [id number] Nov, [facility] [address] [id number] [address] [place] [address], [place] [id number] Nov, [facility] [address] [id number] [address] [place] [address], [place] [id number] Nov, [facility] [address] [id number] [address] [place] [address], [place] [id number] Nov, [facility] [address] [id number] [address] [place] [address], [place] [id number] Nov, [facility] [address] [id number] [address] [place] [address], [place] [id number] Oct, 2014 [facility] [address] [id number] [address] [place] [address], [place] [id number] Oct, 2014 [facility] [address] [id number] [address] [place] [address], [place] [id number] Oct, 2014 [facility] [address] [id number] [address] [place] [phone] Oct, 2014 [facility] [address] [id number] [address] [place] [address], [place] [id number] Oct, 2014 [facility] [address] [id number] [address] [place] [address], [place] [address] Oct, 2014 [facility] [address] [id number] [address] [place] [address], [place] [address] Oct, 2014 [facility] [address] [id number] [address] [place] [id number] Oct, 2014 [facility] [address] [id number] [address] [place] [id number] Oct, [facility] [address] [id number] [address] [place] [id number] Sep, [facility] [address] [id number] [address] [place] [id number] Sep, [facility] [address] [id number] [address] [place] [address], [place] [address] Sep, [facility] [address] [id number] [address] [place] [address], [place] [address] Sep, [facility] [address] [id number] [address] [place] [address], [place] [address] Sep, [facility] [address] [id number] [address] [place] [address], [place] [address] Sep, [facility] [address] [id number] [address] [place] [address], [place] [address] Sep, [facility] [address] [id number] [address] [place] [address], [place] [address] Sep, [facility] [address] [id number] [address] [place] [address], [place] [address] Sep, [facility] [address] [id number] [address] [place] [address], [place] [address] Sep, [facility] [address] [id number] [address] [place] [address], [place] [address] Sep, [facility] [address] [id number] [address] [place] [address], [place] [address] Sep, [facility] [address] [id number] [address] [place] [address], [place] [address] Sep, [facility] [address] [id number] [address] [place] [address], [place] [address] Sep, [facility] [address] [id number] [address] [place] [address], [place] [address] Sep, [facility] [address] [id number] [place] [address], [place] [address] Sep, [facility] [address] [id number] [address] [place] [address], [place] [address] Aug, [facility] [address] [id number] [address] [place] [address], [place] [address] Aug, [facility] [address] [id number] [facility] [place] [address] Aug, [facility] [address] [id number] [address] [place] [address], [place] [address] Aug, [facility] [address] [id number] [facility] [place] [address] Aug, [facility] [address] [id number] [address] [place] [address], [place] [address] Aug, [facility] [address] [id number] [facility] [place] [address] Aug, [facility] [address] [id number] [address] [place] [address], [place] [address] Aug, [facility] [address] [id number] [address] [place] [address], [place] [address] Aug, [facility] [address] [id number] [address] [place] [address], [place] [address] Aug, [facility] [address] [id number] [address] [place] [address], [place] [address] Aug, [facility] [address] [place] [id number] Aug, [facility] [address] [id number] [address] [place] [address], [place] [address] Aug, [facility] [address] [id number] [address] [place] [address], [place] [address] Aug, [facility] [address] [id number] [address] [place] [address], [place] [address] Aug, [facility] [address] [id number] [address] [place] [address], [place] [address] Aug, [facility] [address] [id number] [address] [place] [address], [place] [address] Aug, [facility] [address] [id number] [address] [place] [address], [place] [address] Aug, [facility] [address] [id number] [address] [place] [address], [place] [address] 08 Aug, 2014 [facility] [address] [id number] [address] [place] [address], [place] [address] Aug, [facility] [address] [id number] [address] [place] [address], [place] [address] Aug, [facility] [address] [id number] [address] [place] [address], [place] [address] Aug, [facility] [address] [id number] [address] [place] [address], [place] [address] Aug, [facility] [address] [id number] [address] [place] [address], [place] [address] Aug, [facility] [address] [id number] [address] [place] [address], [place] [address] Aug, [facility] [address] [id number] [address] [place] [address], [place] [address] Aug, [facility] [address] [id number] [address] [place] [address], [place] [address] Aug, [facility] [address] [id number] [address] [place] [address], [place] [address] Aug, [facility] [address] [id number] [address] [place] [address], [place] [address] Aug, [facility] [address] [id number] [address] [place] [address], [place] [address] Aug, [facility] [address] [id number] [address] [place] [address], [place] [address] Jul, [facility] [address] [id number] [address] [place] [address], [place] [address] Jul, [facility] [address] [id number] [address] [place] [address], [place] [address] Jul, [facility] [address] [id number] [address] [place] [address], [place] [address] Jul, [facility] [address] [id number] [address] [place] [address], [place] [address] Jul, [facility] [address] [id number] [address] [place] [address], [place] [address] Jul, [facility] [address] [id number] [address] [place] [address], [place] [address] Jul, [facility] [address] [id number] [address] [place] [address], [place] [address] Jul, [facility] [address] [id number] [address] [place] [address], [place] [address] Jul, [facility] [address] [id number] [address] [place] [address], [place] [address] Jul, [facility] [address] [id number] [address] [place] [address], [place] [address] Jun, [facility] [address] [id number] [address] [place] [address], [place] [address] Jun, [facility] [address] [id number] [address] [place] [address], [place] [address] Jun, [facility] [address] [id number] [address] [place] [address], [place] [address] Jun, [facility] [address] [id number] [address] [place] [address], [place] [address] Jun, [facility] [address] [id number] [address] [place] [address], [place] [address] Jun, [facility] [address] [id number] [address] [place] [address], [place] [address] Jun, [facility] [address] [id number] [address] [place] [address], [place] [address] Jun, [facility] [address] [id number] [address] [place] [address], [place] [address] Jun, [facility] [address] [id number] [address] [place] [address], [place] [address] Jun, [facility] [address] [id number] [address] [place] [address], [place] [address] 29 May, 2013 [facility] [address] [id number] [address] [place] [address], [place] [address] 29 Sep, 2013 [facility] [address] [id number] [address] [place] [address], [place] [address] 26 Sep, 2013 [facility] [address] [id number] [address] [place] [address], [place] [address] 26 Sep, 2013 [facility] [address] [id number] [address] [place] [address], [place] [address] 17 May, 2013 [facility] [address] [id number] [address] [place] [address], [place] [address] 17 May, 2013 [facility] [address] [id number] [address] [place] [address], [place] [address] 15 May, 2013 [facility] [address] [id number] [address] [place] [address], [place] [address] 15 May, 2013 [facility] [address] [id number] [address] [place] [address], [place] [address] 15 May, 2013 [facility] [address] [id number] [address] [place] [address], [place] [address] 15 May, 2013 [facility] [address] [id number] [address] [place] [address] 10 Sep, 2013 [facility] [address] [id number] [address] [place] [address], [place] [address] 10 May, 2013 [facility] [address] [id number] [address] [place] [address], [place] [address] 09 Sep, 2013 [facility] [address] [id number] [address] [place] [address], [place] [address] 09 Sep, 2013 [facility] [address] [id number] [facility] [place] [address] May, [facility] [address] [id number] [address] [place] [address], [place] [address] May, [facility] [address] [id number] [facility] [place] [address] Apr, [facility] [address] [id number] [address] [place] [address], [place] [address] Apr, [facility] [address] [id number] [address] [place] [address], [place] [address] Apr, [facility] [address] [id number] [address] [place] [address], [place] [address] Apr, [facility] [address] [id number] [address] [place] [address], [place] [address] Apr, [facility] [address] [id number] [address] [place] [address], [place] [address] Apr, [facility] [address] [id number] [address] [place] [address], [place] [address] Apr, [facility] [address] [id number] [address] [place] [address], [place] [address] Apr, [facility] [address] [id number] [address] [place] [address], [place] [address] Apr, [facility] [address] [id number] [address] [place] [address], [place] [address] Apr, [facility] [address] [id number] [address] [place] [address], [place] [address] Apr, [facility] [address] [id number] [address] [place] [address], [place] [address] Apr, [facility] [address] [id number] [address] [place] [address], [place] [address] Apr, [facility] [address] [id number] [address] [place] [address], [place] [address] Apr, [facility] [address] [id number] [address] [place] [address], [place] [address] Apr, [facility] [address] [id number] [address] [place] [address], [place] [address] Mar, [facility] [address] [id number] [address] [place] [address], [place] [address] Mar, [facility] [address] [id number] [address] [place] [address], [place] [address] Mar, [facility] [address] [id number] [address] [place] [address], [place] [address] Mar, [facility] [address] [id number] [address] [place] [address], [place] [address] Mar, [facility] [address] [id number] [address] [place] [address], [place] [address] Mar, [facility] [address] [id number] [address] [place] [address], [place] [address] Mar, [facility] [address] [id number] [address] [place] [address], [place] [address] Mar, [facility] [address] [id number] [address] [place] [address], [place] [address] Mar, [facility] [address] [id number] [address] [place] [address], [place] [address] Mar, [facility] [address] [id number] [address] [place] [address], [place] [address] Mar, [facility] [address] [id number] [address] [place] [address], [place] [address] Mar, [facility] [address] [id number] [address] [place] [address], [place] [address] Mar, [facility] [address] [id number] [address] [place] [address], [place] [address] Mar, [facility] [address] [id number] [address] [place] [address], [place] [address] Mar, [facility] [address] [id number] [facility] [place] [address] Mar, [facility] [address] [id number] [address] [place] [address], [place] [address] Mar, [facility] [address] [id number] [address] [place] [address], [place] [address] Mar, [facility] [address] [id number] [address] [place] [address], [place] [address] Feb, [facility] [address] [id number] [address] [place] [address], [place] [address] Feb, [facility] [address] [id number] [address] [place] [address], [place] [address] Feb, [facility] [address] [id number] [address] [place] [address], [place] [address] Feb, [facility] [address] [id number] [address] [place] [address], [place] [address] Feb, [facility] [address] [id number] [address] [place] [address], [place] [address] Feb, [facility] [address] [id number] [address] [place] [address], [place] [address] Feb, [facility] [address] [id number] [address] [place] [address], [place] [address] Feb, [facility] [address] [id number] [address] [place] [address], [place] [address] Feb, [facility] [address] [id number] [address] [place] [address], [place] [address] Feb, [facility] [address] [id number] [address] [place] [address], [place] [address] Feb, [facility] [address] [id number] [address] [place] [address], [place] [address] Feb, [facility] [address] [id number] [facility] [place] [address] Feb, [facility] [address] [id number] [facility] [place] [address] Feb, [facility] [address] [id number] [facility] [place] [address] January, [facility] [address] [id number] [facility] [place] [address] January, [facility] [address] [id number] [facility] [place] [address] January, [facility] [address] [id number] [address] [place] [address], [place] [address] January, [facility] [address] [id number] [address] [place] [address], [place] [address] January, [facility] [address] [id number] [address] [place] [address], [place] [address] January, [facility] [address] [id number] [address] [place] [address], [place] [address] January, [facility] [address] [id number] [address] [place] [address], [place] [address] January, [facility] [address] [id number] [address] [place] [address], [place] [address] January, [facility] [address] [id number] [address] [place] [address], [place] [address] January, [facility] [address] [id number] [address] [place] [address], [place] [address] January, [facility] [address] [id number] [address] [place] [address], [place] [address] January, [facility] [address] [id number] [address] [place] [address], [place] [address] January, [facility] [address] [id number] [address] [place] [address], [place] [address] January, [facility] [address] [id number] [facility] [place] [address] Dec, [facility] [address] [id number] [facility] [place] [address] Dec, [facility] [address] [id number] [address] [place] [address], [place] [address] Dec, [facility] [address] [id number] [address] [place] [address], [place] [address] Dec, [facility] [address] [id number] [address] [place] [address], [place] [address] Dec, [facility] [address] [id number] [address] [place] [address], [place] [address] Dec, [facility] [address] [id number] [address] [place] [address], [place] [address] Dec, [facility] [address] [id number] [address] [place] [address], [place] [address] Dec, [facility] [address] [id number] [address] [place] [address], [place] [address] Dec, [facility] [address] [id number] [address] [place] [address], [place] [address] Dec, [facility] [address] [id number] [address] [place] [address], [place] [address] Nov, [facility] [address] [id number] [address] [place] [address], [place] [address] Nov, [facility] [address] [id number] [address] [place] [address], [place] [address] Nov, [facility] [address] [id number] [address] [place] [address], [place] [address] Nov, [facility] [address] [id number] [address] [place] [address], [place] [address] Nov, [facility] [address] [id number] [address] [place] [address], [place] [address] 08 Nov, 2013 [facility] [address] [id number] [address] [place] [address], [place] [address] 05 Nov, 2013 [facility] [address] [id number] [address] [place] [address], [place] [address] 05 Nov, 2013 [facility] [address] [id number] [address] [place] [address], [place] [address] Nov, [facility] [address] [id number] [address] [place] [address], [place] [address] Nov, [facility] [address] [id number] [address] [place] [address], [place] [address] Oct, [facility] [address] [id number] [address] [place] [address], [place] [address] Oct, [facility] [address] [id number] [address] [place] [address], [place] [address] Oct, [facility] [address] [id number] [address] [place] [address], [place] [address] Oct, [facility] [address] [id number] [address] [place] [address], [place] [address] 20 Oct, 2013 [facility] [address] [id number] [address] [place] [address], [place] [address] 20 Oct, 2013 [facility] [address] [id number] [address] [place] [address], [place] [address] 14 Oct, 2013 [facility] [address] [id number] [address] [place] [address], [place] [address] 14 Oct, 2013 [facility] [address] [id number] [address] [place] [address], [place] [address] 05 Oct, 2013 [facility] [address] [id number] [address] [place] [address], [place] [address] 05 Oct, 2013 [facility] [address] [id number] [address] [place] [address], [place] [address] Oct, [facility] [address] [id number] [address] [place] [address], [place] [address] Oct, [facility] [address] [id number] [address] [place] [address], [place] [address] Oct, [facility] [address] [id number] [address] [place] [address], [place] [address] Oct, [facility] [address] [id number] [address] [place] [address], [place] [address] Sep, [facility] [address] [id number] [address] [place] [address], [place] [address] Sep, [facility] [address] [id number] [address] [place] [address], [place] [address] Sep, [facility] [address] [id number] [address] [place] [address], [place] [address] Sep, [facility] [address] [id number] [address] [place] [address], [place] [address] Sep, [facility] [address] [id number] [address] [place] [address], [place] [address] Sep, [facility] [address] [id number] [address] [place] [address], [place] [address] Sep, [facility] [address] [id number] [address] [place] [address], [place] [address] Sep, [facility] [address] [id number] [address] [place] [address], [place] [address] Sep, [facility] [address] [id number] [address] [place] [address], [place] [address] Sep, [facility] [address] [id number] [address] [place] [address], [place] [address] Aug, [facility] [address] [id number] [address] [place] [address], [place] [address] Aug, [facility] [address] [id number] [address] [place] [address], [place] [address] Jul, [facility] [address] [id number] [address] [place] [address], [place] [address] Jul, [facility] [address] [id number] [address] [place] [address], [place] [address] Jul, [facility] [address] [id number] [address] [place] [address], [place] [address] Jul, [facility] [address] [id number] [address] [place] [address], [place] [address] Jul, [facility] [address] [id number] [address] [place] [address], [place] [address] Jul, [facility] [address] [id number] [address] [place] [address], [place] [address] Jul, [facility] [address] [id number] [address] [place] [address], [place] [address] Jul, [facility] [address] [id number] [address] [place] [address], [place] [address] Jul, [facility] [address] [id number] [address] [place] [address], [place] [address] Jul, [facility] [address] [id number] [address] [place] [address], [place] [address] Jul, [facility] [address] [id number] [address] [place] [address], [place] [address] Jul, [facility] [address] [id number] [address] [place] [address], [place] [address] Jul, [facility] [address] [id number] [address] [place] [address], [place] [address] Jul, [facility] [address] [id number] [address] [place] [address], [place] [address] Jul, [facility] [address] [id number] [address] [place] [address], [place] [address] Jul, [facility] [address] [id number] [address] [place] [address], [place] [address] Jul, 2012 [facility] [address] [id number] [address] [place] [address], [place] [address] Jul, [facility] [address] [id number] [address] [place] [address], [place] [address] Jul, 2012 [facility] [address] [id number] [address] [place] [address], [place] [address] Jun, 2012 [facility] [address] [id number] [address] [place] [address], [place] [address] Jun, 2012 [facility] [address] [id number] [address] [place] [address], [place] [address] Jun, 2012 [facility] [address] [id number] [address] [place] [address], [place] [address] Jun, 2012 [facility] [address] [id number] [address] [place] [id number] Jun, [facility] [address] [id number] [address] [place] [id number] Jun, [facility] [address] [id number] [address] [place] [id number] Jun, [facility] [address] [id number] [address] [place] [id number] Jun, [facility] [address] [id number] [address] [place] [id number] Jun, [facility] [address] [id number] [address] [place] [id number] Jun, [facility] [address] [id number] [address] [place] [id number] Jun, [facility] [address] [id number] [address] [place] [id number] May, [facility] [address] [id number] [address] [place] [id number] 25 May, 2013 [facility] [address] [id number] [address] [place] [address], [place] [address] 19 May, 2012 [facility] [address] [id number] [address] [place] [address], [place] [address] 17 May, 2013 [facility] [address] [id number] [address] [place] [address], [place] [address] 11 May, 2012 [facility] [address] [id number] [address] [place] [address], [place] [address] 10 May, 2012 [facility] [address] [id number] [address] [place] [address], [place] [address] 09 May, 2013 [facility] [address] [id number] [address] [place] [address], [place] [address] 05 May, 2013 [facility] [address] [id number] [address] [place] [address], [place] [address] Apr, [facility] [address] [id number] [address] [place] [address], [place] [address] Apr, [facility] [address] [id number] [address] [place] [address], [place] [address] Apr, [facility] [address] [id number] [address] [place] [address], [place] [address] Apr, [facility] [address] [id number] [address] [place] [address], [place] [address] Apr, [facility] [address] [id number] [address] [place] [address], [place] [address] Mar, [facility] [address] [id number] [address] [place] [address], [place] [address] Mar, [facility] [address] [id number] [address] [place] [address], [place] [address] Mar, [facility] [address] [id number] [address] [place] [address], [place] [address] Mar, [facility] [address] [id number] [facility] [place] [address] Mar, [facility] [address] [id number] [address] [place] [address], [place] [address] Mar, [facility] [address] [id number] [address] [place] [address], [place] [address] Mar, [facility] [address] [id number] [address] [place] [address], [place] [address] Mar, [facility] [address] [id number] [address] [place] [address], [place] [address] Feb, [facility] [address] [id number] [address] [place] [address], [place] [address] Feb, [facility] [address] [id number] [address] [place] [address], [place] [address] January, [facility] [address] [id number] [address] [place] [address], [place] [address] January, [facility] [address] [id number] [address] [place] [address], [place] [address] Dec, [facility] [address] [id number] [address] [place] [address], [place] [address] Dec, [facility] [address] [id number] [address] [place] [address], [place] [address] Nov, [facility] [address] [id number] [address] [place] [address], [place] [address] Nov, [facility] [address] [id number] [address] [place] [address], [place] [address] Nov, [facility] [address] [id number] [address] [place] [address], [place] [address] Nov, [facility] [address] [id number] [address] [place] [address], [place] [address] Oct, [facility] [address] [id number] [address] [place] [address], [place] [address] Oct, [facility] [address] [id number] [address] [place] [address], [place] [address] Oct, [facility] [address] [id number] [address] [place] [address], [place] [address] Oct, [facility] [address] [id number] [address] [place] [address], [place] [address] 16 Oct, 2012 [facility] [address] [id number] [address] [place] [address], [place] [address] 14 Oct, 2012 [facility] [address] [id number] [address] [place] [address], [place] [address] 08 Oct, 2012 [facility] [address] [id number] [address] [place] [address], [place] [address] 07 Oct, 2012 [facility] [address] [id number] [address] [place] [address], [place] [address] 03 Oct, 2012 [facility] [address] [id number] [address] [place] [address], [place] [address] Sep, [facility] [address] [id number] [address] [place] [address], [place] [address] Sep, [facility] [address] [id number] [address] [place] [address], [place] [address] Sep, [facility] [address] [id number] [address] [place] [address], [place] [address] Sep, [facility] [address] [id number] [address] [place] [address], [place] [address] Sep, [facility] [address] [id number] [address] [place] [address], [place] [address] Sep, [facility] [address] [id number] [address] [place] [address], [place] [address] 09 Sep, 2012 [facility] [address] [id number] [address] [place] [address], [place] [address] 08 Sep, 2012 [facility] [address] [id number] [address] [place] [address], [place] [address] 31 Aug, 2012 [facility] [address] [id number] [address] [place] [address], [place] [address] Aug, [facility] [address] [id number] [address] [place] [address], [place] [address] Aug, [facility] [address] [id number] [address] [place] [address], [place] [address] Aug, [facility] [address] [id number] [address] [place] [address], [place] [address] Aug, [facility] [address] [id number] [address] [place] [address], [place] [address] Aug, [facility] [address] [id number] [address] [place] [address], [place] [address] Aug, [facility] [address] [id number] [address] [place] [address], [place] [address] Aug, [facility] [address] [id number] [address] [place] [address], [place] [address] Jul, [facility] [address] [id number] [address] [place] [address], [place] [address] Jul, [facility] [address] [id number] [address] [place] [address], [place] [address] Jul, [facility] [address] [id number] [address] [place] [address], [place] [address] Jul, [facility] [address] [id number] [address] [place] [address], [place] [address] Jul, [facility] [address] [id number] [address] [place] [address], [place] [address] Jul, [facility] [address] [id number] [address] [place] [address], [place] [address] Jun, [facility] [address] [id number] [address] [place] [address], [place] [address] Jun, [facility] [address] [id number] [address] [place] [address], [place] [address] Jun, [facility] [address] [id number] [address] [place] [address], [place] [address] Jun, [facility] [address] [id number] [address] [place] [address], [place] [address] Jun, [facility] [address] [id number] [address] [place] [address], [place] [address] Jun, [facility] [address] [id number] [address] [place] [address], [place] [address] Jun, [facility] [address] [id number] [address] [place] [address], [place] [address] Jun, [facility] [address] [id number] [address] [place] [address], [place] [address] Jun, [facility] [address] [id number] [address] [place] [address], [place] [address] 26 May, 2012 [facility] [address] [id number] [address] [place] [address], [place] [address] 24 May, 2012 [facility] [address] [id number] [address] [place] [address], [place] [address] 18 May, 2012 [facility] [address] [id number] [address] [place] [address], [place] [address] 30 Apr, 2012 [facility] [address] [id number] [address] [place] [address], [place] [address] 29 Apr, 2012 [facility] [address] [id number] [address] [place] [address], [place] [address] 18 Apr, 2012 [facility] [address] [id number] [address] [place] [address], [place] [address] 14 Apr, 2012 [facility] [address] [id number] [address] [place] [address], [place] [address] 10 Apr, 2012 [facility] [address] [id number] [address] [place] [address], [place] [address] Apr, [facility] [address] [id number] [address] [place] [address], [place] [address] Mar, [facility] [address] [id number] [address] [place] [address], [place] [address] Mar, [facility] [address] [id number] [address] [place] [address], [place] [address] Mar, [facility] [address] [id number] [address] [place] [address], [place] [address] Mar, [facility] [address] [id number] [address] [place] [address], [place] [address] Feb, [facility] [address] [id number] [address] [place] [address], [place] [address] Feb, [facility] [address] [id number] [address] [place] [address], [place] [address] Feb, [facility] [address] [id number] [address] [place] [address], [place] [address] Feb, [facility] [address] [id number] [address] [place] [address], [place] [address] Feb, [facility] [address] [id number] [address] [place] [address], [place] [address] January, [facility] [address] [id number] [address] [place] [address], [place] [address] January, [facility] [address] [id number] [address] [place] [address], [place] [address] January, [facility] [address] [id number] [address] [place] [address], [place] [address] January, [facility] [address] [id number] [address] [place] [address], [place] [address] January, [facility] [address] [id number] [address] [place] [address], [place] [address] January, [facility] [address] [id number] [address] [place] [address], [place] [address] Dec, [facility] [address] [id number] [address] [place] [address], [place] [address] 24 Dec, 2011 [facility] [address] [id number] [address] [place] [address], [place] [address] 17 Dec, 2011 [facility] [address] [id number] [address] [place] [address], [place] [address] Dec, [facility] [address] [id number] [address] [place] [address], [place] [address] Dec, [facility] [address] [id number] [address] [place] [address], [place] [address] 27 Nov, 2011 [facility] [address] [id number] [address] [place] [address], [place] [address] 14 Nov, 2011 [facility] [address] [id number] [address] [place] [address], [place] [address] Nov, [facility] [address] [id number] [address] [place] [address], [place] [address] Nov, [facility] [address] [id number] [address] [place] [address], [place] [address] 29 Oct, 2011 [facility] [address] [id number] [address] [place] [address], [place] [address] Oct, [facility] [address] [id number] [address] [place] [address], [place] [address] 24 Oct, 2011 [facility] [address] [id number] [address] [place] [address], [place] [address] 13 Oct, 2011 [facility] [address] [id number] [address] [place] [address], [place] [address] 08 Oct, 2011 [facility] [address] [id number] [address] [place] [address], [place] [address] Sep, [facility] [address] [id number] [address] [place] [address], [place] [address] Sep, [facility] [address] [id number] [address] [place] [address], [place] [address] Sep, [facility] [address] [id number] [address] [place] [address], [place] [address] Sep, [facility] [address] [id number] [address] [place] [address], [place] [address] Sep, [facility] [address] [id number] [address] [place] [address], [place] [address] Sep, [facility] [address] [id number] [address] [place] [address], [place] [address] Aug, [facility] [address] [id number] [address] [place] [address], [place] [address] Aug, [facility] [address] [id number] [address] [place] [address], [place] [address] Aug, [facility] [address] [id number] [address] [place] [address], [place] [address] Jul, [facility] [address] [id number] [address] [place] [address], [place] [address] Jul, [facility] [address] [id number] [address] [place] [address], [place] [address] Jul, [facility] [address] [id number] [address] [place] [address], [place] [address] Jul, [facility] [address] [id number] [address] [place] [address], [place] [address] Jun, [facility] [address] [id number] [address] [place] [address], [place] [address] Jun, [facility] [address] [id number] [address] [place] [address], [place] [address] Jun, [facility] [address] [id number] [address] [place] [address], [place] [address] Jun, [facility] [address] [id number] [address] [place] [address], [place] [address] 10 Jun, 2011 [facility] [address] [id number] [address] [place] [address], [place] [address] 10 Jun, 2011 [facility] [address] [id number] [address] [place] [address], [place] [address] 11 Mar, 2011 [facility] [address] [id number] [address] [place] [address], [place] [address] 18 Dec, 2010 [facility] [address] [id number] [address] [place] [address], [place] [address] 11 Dec, 2010 [facility] [address] [id number] [address] [place] [address], [place] [address] 18 Nov, 2010 [facility] [address] [id number] [address] [place] [address], [place] [address] 16 Nov, 2010 [facility] [address] [id number] [address] [place] [address], [place] [address] 10 Sep, 2010 [facility] [address] [id number] [address] [place] [address], [place] [address] 31 Aug, 2010 [facility] [address] [id number] [address] [place] [address], [place] [address] 29 Aug, 2010 [facility] [address] [id number] [address] [place] [address], [place] [address] 29 Aug, 2010 [facility] [address] [id number] [address] [place] [address], [place] [address] 29 Aug, 2010 [facility] [address] [id number] [address] [place] [address], [place] [address] 27 Aug, 2010 [facility] [address] [id number] [address] [place] [address], [place] [address] 14 Aug, 2010 [facility] [address] [id number] [address] [place] [address], [place] [address] 08 Aug, 2010 [facility] [address] [id number] [address] [place] [address], [place] [address] 08 Aug, 2010 [facility] [address] [id number] [address] [place] [address], [place] [address] Aug, [facility] [address] [id number] [address] [place] [address], [place] [address] Aug, [facility] [address] [id number] [address] [place] [address], [place] [address] Aug, [facility] [address] [id number] [address] [place] [id number] Aug, [facility] [address] [id number] [address] [place] [address], [place] [address] Jul, [facility] [address] [id number] [address] [place] [id number] Jul, [facility] [address] [id number] [address] [place] [address], [place] [address] Jul, [facility] [address] [id number] [address] [place] [id number] Jul, [facility] [address] [id number] [address] [place] [id number] Jul, [facility] [address] [id number] [address] [place] [id number] Jul, [facility] [address] [id number] [address] [place] [id number] 24 Jun, 2010 [facility] [address] [id number] [address] [place] [phone] Jun, [facility] [address] [id number] [address] [place] [id number] Jun, [facility] [address] [id number] [address] [place] [id number] Jun, [facility] [address] [id number] [address] [place] [id number] Apr, [facility] [address] [id number] [address] [place] [address], [place] [address] Mar, [facility] [address] [id number] [address] [place] [address], [place] [id number] 17 Feb, 2010 [facility] [address] [id number] [address] [place] [address], [place] [address] January, [facility] [address] [id number] [address] [place] [address], [place] [id number] 15 Dec, 2009 [facility] [address] [id number] [address] [place] [address], [place] [address] Nov, [facility] [address] [id number] [address] [place] [address], [place] [id number] 31 Aug, 2009 [facility] [address] [id number] [address] [place] [address], [place] [address] Aug, [facility] [address] [id number] [address] [place] [address], [place] [id number] Aug, [facility] [address] [id number] [address] [place] [address], [place] [address] Jul, [facility] [address] [id number] [address] [place] [address], [place] [address] Jul, [facility] [address] [id number] [address] [place] [address], [place] [address] 07 Jul, 2009 [facility] [address] [id number] [address] [place] [address], [place] [address] 30 Jun, 2009 [facility] [address] [id number] [address] [place] [id number] 29 Jun, 2009 [facility] [address] [id number] [address] [place] [address], [place] [address] 26 Jun, 2009 [facility] [address] [id number] [address] [place] [address], [place] [address] 22 Jun, 2009 [facility] [address] [id number] [address] [place] [id number] Jun, [facility] [address] [facility] [id number] [address] [place] [id number] Jun, [facility] [address] [facility] [id number] [address] [place] [phone] Apr, [facility] [address] [facility] [id number] [address] [place] [id number] Apr, [facility] [address] [facility] [id number] [address] [place] [id number] Feb, [facility] [address] [facility] [id number] [address] [place] [id number] January, [facility] [address] [facility] [id number] [address] [place] [id number] Dec, IMMUNIZATIONS No Known Immunizations SOCIAL HISTORY [...] Medical History skin cancer-basal cell R judaism (removed ) Medical History Arthritis Medical History [...] [facility]'s Hospitalization History hyperkalemia 10/2017 Hospitalization History fluid in lung
--- OUTSIDE RECORDS SUMMARY | 2020-03-01 18:19 | XMS REPORT ---
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 Name Role Phone NOEMI WASHBURN Unavailable PROBLEMS Type Condition ICD9-CM Code AFP41-PE Code Onset Dates Condition S tatus SNOMED Code Problem Cough R05 Active 69975626 Problem Benign prostatic hyperplasia with lower urinary tract symptoms, unspecified morphology N40.1 Active 28100 6007 Problem Eustachian tube dysfunction, unspecified laterality H69.80 Active 71002883 Problem Chronic pain G89.29 Active 8776591 1 Problem DM neuro manif type II E11.49 Active 52802513 Problem Diabetes E11.9 Active 53749846 Problem Leukocytosis D72.829 Active 8022754 06 Problem Falling R29.6 Active 462291079 Problem Pressure ulcer of other site, stage 3 L89.893 Active 465414711 Problem 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 Active 108693077 Problem Eye exam abnormal R93.8 Active 16 9364645 Problem Dysuria R30.0 Active 30705910 Problem Hypokalemia E87.6 Active 39523404 Problem Morbid obesity E66.01 Active 52169 6002 Problem Anxiety F41.9 Active 15418641 Problem Diabetic polyneuropathy associated with type 2 d iabetes mellitus E11.42 Active 75883091 Problem Essential hypertension I10 Active 33893043 Problem Bilateral primary osteoarthritis of knee M17.0 Active 234903765 Problem Polyneuropathy associated with underlying disease G63 Active 255678728 Problem Anemia of chronic illness D63.8 Acti ve 576416193 Problem Lymphocytosis D72.820 Active 603149 09 Problem Retinal edema H35.81 Active 724058 6 Problem Chronic lymphocytic leukemia C91.10 A ctive 64195520 Problem Bipolar disorder, in partial remission, most rec ent episode depressed F31.75 Active 09591111 Problem Pure hypercholesterolemia E78.00 Acti ve 732502089 Problem Primary osteoarthritis of right knee M17.11 Active 981657598845753 Problem Bipolar disorder F31.9 Active 137 83418 Problem Bipolar I disorder, most recent episode (or curr ent) mixed, moderate F31.62 Active 42574584 Problem Chronic diastolic (congestive) heart failure I50.3 2 Active 604186384 Problem Reactive airway disease J45.909 Active 013344753749 Problem Insomnia, unspecified type G47.00 Act sharon 342535061 Problem Other chronic pain G89.29 Active 8 2350465 Problem Other iron deficiency anemia D50.8 A ctive 55629779 Problem Mild cognitive impairment G31.84 Acti ve 119129167 Problem Skin cancer C44.90 Active 34246488 7 ALLERGIES No Information ENCOUNTERS Encounter Location Date Diagnosis [place] [address] [facility] [id number] [address] [place] [id number] Apr, [place] [address] [place] [id number] [address] [place] [id number] Apr, [place] [address] [facility] [id number] [address] [place] [address] Mar, Bipolar disorder F31.9 and C hronic pain G89.29 [place] [address] [facility] [id number] [address] [place] [id number] Feb, Bipolar disorder F31.9 [place] [id number] [facility] [id number] [address] [place] [id number] 17 Feb, 2019 Cellulitis of right upper ex tremity L03.113 and Skin abrasion T14.8XXA [facility] [address] [facility] [id number] [address] [place] [id number] 17 Feb, 2019 Bipolar disorder, in partial remission, most recent episode depressed F31.75 and Mild cognitive impairment G31.84 [place] [address] [facility] [id number] [address] [place] [id number] 13 Feb, 2019 Chronic pain G89.29 [place] [address] [facility] [id number] [address] [place] [id number] 03 Feb, 2019 Bipolar disorder, in partial remission, most recent episode depressed F31.75 and Mild cognitive impairment G31.84 [facility] [address] [id number] [address] [place] [address] January, Bipolar disorder, in partial remission, most recent episode depressed F31.75 and Mild cognitive impairment G31.84 [facility] [address] [id number] [address] [place] [id number] January, Chronic pain G89.29 and Bipo lar disorder F31.9 [facility] [address] [id number] [address] [place] [id number] January, Bipolar disorder, in partial remission, most recent episode depressed F31.75 and Mild cognitive impairment G31.84 [facility] [address] [id number] [address] [place] [id number] Dec, [facility] [address] [id number] [address] [place] [id number] Dec, Chronic pain G89.29 and Bipo lar disorder F31.9 [facility] [address] [id number] [address] [place] [id number] Dec, Edema of both lower extremit ies R60.0 [facility] [address] [id number] [address] [place] [id number] Dec, Bipolar disorder F31.9 [facility] [address] [id number] [address] [place] [id number] Dec, Bipolar disorder, in partial remission, most recent episode depressed F31.75 and Mild cognitive impairment G31.84 [facility] [address] [id number] [address] [place] [id number] Nov, [facility] [address] [id number] [address] [place] [id number] Nov, Chronic pain G89.29 [facility] [address] [id number] [address] [place] [id number] Nov, Bipolar disorder, in partial remission, most recent episode depressed F31.75 and Mild cognitive impairment G31.84 [place] [address] [place] [id number] [address] [place] [address] Nov, Bipolar disorder F31.9 [place] [address] [place] [id number] [address] [place] [id number] 04 Nov, 2018 Encounter for Medicare annmercy [...] unspecified morphology N40.1 and Essential hypertension I10 [place] [address] [place] [id number] [address] [place] [id number] Oct, Chronic pain G89.29 [place] [id number] [place] [id number] 18 Oct, 2018 Diabetes E11.9 [place] [address] [place] [id number] [address] [place] [id number] Oct, Bipolar I disorder, most rec ent episode (or current) mixed, moderate F31.62 and Mild cognitive impairment G31.84 [place] [address] [place] [address] Oct, Bipolar I disorder, most rec ent episode (or current) mixed, moderate F31.62 and Mild cognitive impairment G31.84 [place] [address] [place] [id number] [address] [place] [address] Sep, Bipolar I disorder, most rec ent episode (or current) mixed, moderate F31.62 and Mild cognitive impairment G31.84 [place] [address] [place] [id number] [address] [place] [address] Sep, [facility] [address] [id number] [address] [place] [address] Sep, Diabetes E11.9 ; Hypoxia R09 .02 ; Hyperglycemia R73.9 ; Therapeutic drug monitoring Z51.81 ; BMI 50.0-59.9, adult Z68.43 and Skin cancer C44.90 [place] [address] [facility] [id number] [address] [place] [address] Sep, Chronic pain G89.29 [place] [address] [id number] [address] [place] [id number] Sep, Bipolar I disorder, most rec ent episode (or current) mixed, moderate F31.62 [place] [address] [facility] [id number] [address] [place] [phone] Sep, [place] [address] [facility] [id number] [address] [place] [id number] Sep, [place] [address] [facility] [id number] [address] [place] [address] Aug, Chronic pain G89.29 [place] [address] [id number] [address] [place] [id number] Aug, Bipolar I disorder, most rec ent episode (or current) mixed, moderate F31.62 [place] [address] [facility] [id number] [address] [place] [phone] Aug, Bipolar I disorder, most rec ent episode (or current) mixed, moderate F31.62 and Mild cognitive impairment G31.84 [place] [address] [id number] [address] [place] [phone] Jul, [place] [address] [facility] [id number] [address] [place] [address] Jul, Chronic pain G89.29 [facility] [address] [id number] [address] [place] [id number] Jul, Bipolar I disorder, most rec ent episode (or current) mixed, moderate F31.62 and Mild cognitive impairment G31.84 [facility] [address] [facility] [id number] [address] [place] [id number] Jul, Bipolar I disorder, most rec ent episode (or current) mixed, moderate F31.62 and MCI (mild cognitive impairment) G31.84 [facility] [address] [facility] [id number] [address] [place] [id number] Jul, [facility] [address] [facility] [id number] [address] [place] [address] Jul, [place] [address] [facility] [id number] [address] [place] [id number] Jul, Bipolar I disorder, most rec ent episode (or current) mixed, moderate F31.62 [place] [address] [facility] [id number] [address] [place] [id number] Jul, Chronic pain G89.29 [place] [address] [facility] [id number] [address] [place] [id number] Jun, Bipolar I disorder, most rec ent episode (or current) mixed, moderate F31.62 [place] [address] [place] [id number] [address] [place] [address] Jun, Pre-procedure lab exam Z01.8 12 [place] [address] [place] [id number] [address] [place] [id number] Jun, [facility] [address] [id number] [place] [id number] Jun, [place] [address] [facility] [id number] [address] [place] [phone] Jun, [place] [address] [place] [id number] [address] [place] [id number] Jun, Forgetfulness R68.89 ; Pre-s yncope R55 ; Localized edema R60.0 ; Other iron deficiency anemia D50.8 and BMI 50.0-59.9, adult Z68.43 [place] [address] [place] [id number] [address] [place] [id number] 05 Jun, 2018 Chronic pain G89.29 [facility] [address] [place] [id number] [address] [place] [id number] 05 Jun, 2018 Chronic pain G89.29 [facility] [address] [place] [id number] [address] [place] [phone] Jun, Bipolar I disorder, most rec ent episode (or current) mixed, moderate F31.62 [facility] [address] [place] [id number] [address] [place] [id number] May, Chronic pain G89.29 [facility] [address] [address] Apr, [place] [address] [place] [id number] [place] [address] Apr, Chronic pain G89.29 [place] [address] [address] Apr, Primary osteoarthritis of ri t knee M17.11 [place] [address] [address] Mar, [place] [address] [address] Mar, BMI 50.0-59.9, adult Z68.43 and Bipolar disorder, in partial remission, most recent episode depressed F31.75 [place] [address] [place] [id number] [address] [place] [address] Mar, Diabetes E11.9 ; Pure hyperc holesterolemia E78.00 ; Essential hypertension I10 ; Nausea with vomiting, unspecified R11.2 and Headache, unspecified headache type R51 [place] [address] [place] [id number] [address] [place] [address] Mar, Bipolar I disorder, most rec ent episode (or current) mixed, moderate F31.62 [place] [address] [address] Mar, Bipolar I disorder, most rec ent episode (or current) mixed, moderate F31.62 [facility] [address] [facility] [id number] [address] [place] [id number] Mar, Chronic pain G89.29 [facility] [address] [facility] [id number] [address] [place] [id number] Mar, Bipolar I disorder, most rec ent episode (or current) mixed, moderate F31.62 [place] [address] [facility] [id number] [address] [place] [id number] Feb, Bipolar I disorder, most rec ent episode (or current) mixed, moderate F31.62 [place] [address] [place] [id number] [address] [place] [id number] Feb, Chronic pain G89.29 [place] [address] [place] [id number] [address] [place] [id number] Feb, Decubitus ulcer of right josselin t, stage 3 L89.893 and BMI 50.0-59.9, adult Z68.43 [place] [address] [facility] [id number] [address] [place] [address] Feb, Bipolar I disorder, most rec ent episode (or current) mixed, moderate F31.62 [place] [address] [facility] [id number] [address] [place] [address] Feb, [facility] [address] [facility] [id number] [address] [place] [id number] January, [facility] [address] [facility] [id number] [address] [place] [address] January, Chronic pain G89.29 [facility] [address] [facility] [id number] [address] [place] [address] January, Bipolar I disorder, most rec ent episode (or current) mixed, moderate F31.62 [place] [address] [facility] [id number] [address] [place] [address] January, Bipolar I disorder, most rec ent episode (or current) mixed, moderate F31.62 [place] [address] [facility] [id number] [address] [place] [id number] Dec, Bipolar I disorder, most rec ent episode (or current) mixed, moderate F31.62 and BMI 50.0-59.9, adult Z68.43 [place] [address] [place] [id number] [address] [place] [id number] Dec, Bipolar I disorder, most rec ent episode (or current) mixed, moderate F31.62 [place] [address] [facility] [id number] [address] [place] [address] Dec, Chronic pain G89.29 [place] [address] [facility] [id number] [address] [place] [address] Dec, DM neuro manif type II E11.4 9 ; Right flank pain R10.9 ; 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 ; Encounter for medication monitoring Z51.81 and BMI 50.0-59.9, adult Z68.43 [place] [address] [place] [id number] [address] [place] [id number] Dec, Bipolar I disorder, most rec ent episode (or current) mixed, moderate F31.62 [place] [address] [place] [id number] [address] [place] [phone] Nov, Bipolar I disorder, most rec ent episode (or current) mixed, moderate F31.62 [place] [address] [facility] [id number] [address] [place] [phone] Nov, Chronic pain G89.29 [place] [address] [place] [id number] [address] [place] [id number] Nov, Bipolar I disorder, most rec ent episode (or current) mixed, moderate F31.62 [place] [address] [facility] [id number] [address] [place] [address] Nov, Hypokalemia E87.6 [place] [address] [place] [id number] [address] [place] [id number] Nov, Bipolar I disorder, most rec ent episode (or current) mixed, moderate F31.62 [place] [address] [place] [id number] [place] [address] Oct, Chronic pain G89.29 [place] [address] [address] Oct, BMI 50.0-59.9, adult Z68.43 and Bipolar I disorder, most recent episode (or current) mixed, moderate F31.62 [place] [address] [address] Oct, Bipolar I disorder, most rec ent episode (or current) mixed, moderate F31.62 [place] [address] [address] Oct, [place] [address] [address] Oct, Hypokalemia E87.6 [place] [address] [address] Oct, DM neuro manif type II E11.4 9 [place] [address] [address] Oct, Bipolar I disorder, most rec ent episode (or current) mixed, moderate F31.62 [place] [address] [place] [id number] [address] [place] [address] Oct, Bipolar I disorder, most rec ent episode (or current) mixed, moderate F31.62 [place] [address] [place] [id number] [address] [place] [address] 14 Oct, 2017 Hyperkalemia E87.5 ; Falling R29.6 ; BMI 50.0-59.9, adult Z68.43 and Acute left ankle pain M25.572 [place] [address] [place] [id number] [address] [place] [address] 08 Oct, 2017 DM neuro manif type II E11.4 9 [place] [address] [place] [address] Oct, [place] [address] [place] [id number] [place] [address] Sep, Chronic pain G89.29 [place] [address] [address] Sep, [place] [address] [address] Sep, Bilateral primary osteoarthr itis of knee M17.0 [place] [address] [address] Sep, Generalized edema R60.1 [place] [address] [address] 16 Sep, 2017 Bipolar I disorder, most rec ent episode (or current) mixed, moderate F31.62 [place] [address] [address] 15 Sep, 2017 Hypoxia R09.02 ; Other hyper volemia E87.79 ; Diabetes E11.9 ; Retinal edema H35.81 ; Hypokalemia E87.6 ; 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 ; Anemia of chronic illness D63.8 and BMI 50.0- 59.9, adult Z68.43 [place] [address] [place] [id number] [address] [place] [address] Sep, [address] [address] Sep, Bipolar I disorder, most rec ent episode (or current) mixed, moderate F31.62 [place] [address] [address] Aug, Chronic pain G89.29 [facility] [address] [facility] [id number] [address] [place] [address] Aug, Generalized edema R60.1 [facility] [address] [facility] [id number] [address] [place] [id number] Aug, [facility] [address] [facility] [id number] [address] [place] [address] Aug, [facility] [address] [facility] [id number] [address] [place] [address] 14 Aug, 2017 Bipolar I disorder, most rec ent episode (or current) mixed, moderate F31.62 [place] [address] [facility] [id number] [address] [place] [address] Aug, Bipolar I disorder, most rec ent episode (or current) mixed, moderate F31.62 [place] [address] [facility] [id number] [address] [place] [address] 04 Aug, 2017 Chronic pain G89.29 [facility] [address] [facility] [id number] [address] [place] [id number] 30 Jul, 2017 Bipolar I disorder, most rec ent episode (or current) mixed, moderate F31.62 [facility] [address] [facility] [id number] [address] [place] [address] Jul, Bipolar I disorder, most rec ent episode (or current) mixed, moderate F31.62 and BMI 60.0-69.9, adult Z68.44 [facility] [address] [facility] [id number] [address] [place] [id number] 16 Jul, 2017 Bipolar I disorder, most rec ent episode (or current) mixed, moderate F31.62 [place] [address] [facility] [id number] [address] [place] [address] 06 Jul, 2017 Chronic pain G89.29 [facility] [address] [facility] [id number] [address] [place] [address] 02 Jul, 2017 Bipolar I disorder, most rec ent episode (or current) mixed, moderate F31.62 [facility] [address] [id number] [address] [place] [id number] 18 Jun, 2017 Polyneuropathy associated wi th underlying disease G63 and Diabetes E11.9 [facility] [address] [id number] [address] [place] [id number] 16 Jun, 2017 Bipolar I disorder, most rec ent episode (or current) mixed, moderate F31.62 [facility] [address] [id number] [address] [place] [address] Jun, Chronic pain G89.29 [facility] [address] [id number] [address] [place] [address] May, Bipolar I disorder, most rec ent episode (or current) mixed, moderate F31.62 [facility] [address] [facility] [id number] [address] [place] [id number] 21 May, 2017 Bipolar I disorder, most rec ent episode (or current) mixed, moderate F31.62 [facility] [address] [id number] [address] [place] [id number] 20 May, 2017 Diabetic polyneuropathy asso ciated with type 2 diabetes mellitus E11.42 [facility] [address] [id number] [address] [place] [id number] 18 May, 2017 Bipolar I disorder, most rec ent episode (or current) mixed, moderate F31.62 [facility] [address] [facility] [id number] [address] [place] [phone] 13 May, 2017 Bipolar I disorder, most rec ent episode (or current) mixed, moderate F31.62 [facility] [address] [id number] [address] [place] [address] May, Chronic pain G89.29 [facility] [address] [facility] [id number] [address] [place] [address] Apr, Bipolar I disorder, most rec ent episode (or current) mixed, moderate F31.62 [facility] [address] [facility] [id number] [address] [place] [address] Apr, [facility] [address] [id number] [address] [place] [address] Apr, Chronic pain G89.29 and DM n euro manif type II E11.49 [facility] [address] [facility] [id number] [address] [place] [phone] Apr, [facility] [address] [facility] [id number] [address] [place] [id number] Apr, Bipolar I disorder, most rec ent episode (or current) mixed, moderate F31.62 [facility] [address] [facility] [id number] [address] [place] [address] Apr, Chronic pain G89.29 [facility] [address] [facility] [id number] [address] [place] [id number] Apr, Iliotibial band syndrome, le ft M76.32 [facility] [address] [facility] [id number] [address] [place] [address] Apr, Bipolar I disorder, most rec ent episode (or current) mixed, moderate F31.62 [facility] [address] [facility] [id number] [address] [place] [address] Mar, Bipolar I disorder, most rec ent episode (or current) mixed, moderate F31.62 [facility] [address] [facility] [id number] [address] [place] [id number] Mar, Bipolar I disorder, most rec ent episode (or current) mixed, moderate F31.62 [facility] [address] [facility] [id number] [address] [place] [id number] Mar, [facility] [address] [facility] [id number] [address] [place] [id number] Mar, Bipolar I disorder, most rec ent episode (or current) mixed, moderate F31.62 [facility] [address] [facility] [id number] [address] [place] [phone] Mar, Chronic pain G89.29 [facility] [address] [id number] [address] [place] [phone] Mar, Bipolar I disorder, most rec ent episode (or current) mixed, moderate F31.62 [facility] [address] [id number] [address] [place] [phone] Mar, Bipolar I disorder, most rec ent episode (or current) mixed, moderate F31.62 [facility] [address] [id number] [address] [place] [phone] Mar, Acute pain of left knee M25. 562 ; Left hip pain M25.552 ; Generalized edema R60.1 and Tongue swelling R22.0 [facility] [address] [id number] [address] [place] [phone] Mar, [facility] [address] [id number] [address] [place] [id number] Feb, Chronic pain G89.29 [facility] [address] [id number] [address] [place] [id number] Feb, Diabetes E11.9 [facility] [address] [id number] [address] [place] [id number] January, Chronic pain G89.29 [facility] [address] [facility] [id number] [address] [place] [id number] January, [facility] [address] [id number] [address] [place] [id number] January, Bipolar I disorder, most rec ent episode (or current) mixed, moderate F31.62 [facility] [address] [id number] [address] [place] [id number] Dec, Bipolar I disorder, most rec ent episode (or current) mixed, moderate F31.62 [facility] [address] [facility] [id number] [address] [place] [address] Dec, Chronic pain G89.29 [facility] [address] [id number] [address] [place] [id number] Dec, Bipolar I disorder, most rec ent episode (or current) mixed, moderate F31.62 [facility] [address] [place] [id number] [address] [place] [id number] Dec, Diabetes E11.9 ; Essential h ypertension I10 ; Chronic pain G89.29 and Morbid obesity E66.01 [facility] [address] [place] [place] [id number] [address] [place] [id number] Dec, [facility] [address] [facility] [id number] [address] [place] [id number] Dec, Bipolar I disorder, most rec ent episode (or current) mixed, moderate F31.62 [facility] [address] [place] [place] [id number] [address] [place] [id number] Dec, Bipolar I disorder, most rec ent episode (or current) mixed, moderate F31.62 [facility] [address] [place] [id number] [address] [place] [id number] Nov, Chronic pain G89.29 [facility] [address] [id number] [address] [place] [id number] Nov, Bipolar I disorder, most rec ent episode (or current) mixed, moderate F31.62 [facility] [address] [place] [id number] [address] [place] [id number] Nov, [facility] [address] [facility] [id number] [address] [place] [id number] Nov, Bipolar I disorder, most rec ent episode (or current) mixed, moderate F31.62 [facility] [address] [place] [id number] [address] [place] [id number] Nov, Bipolar I disorder, most rec ent episode (or current) mixed, moderate F31.62 [facility] [address] [place] [id number] [address] [place] [id number] Nov, [facility] [address] [place] [place] [id number] [address] [place] [id number] Nov, [facility] [address] [facility] [id number] [address] [place] [id number] Nov, [facility] [address] [facility] [id number] [address] [place] [id number] Oct, Chronic pain G89.29 [facility] [address] [facility] [id number] [address] [place] [id number] Oct, Bipolar I disorder, most rec ent episode (or current) mixed, moderate F31.62 [facility] [address] [facility] [id number] [address] [place] [id number] Oct, [facility] [address] [facility] [id number] [address] [place] [address] Oct, Chronic pain G89.29 ; Diabet es E11.9 ; Anxiety F41.9 and 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 [facility] [address] [facility] [id number] [address] [place] [id number] Oct, [facility] [address] [facility] [id number] [address] [place] [id number] Oct, Diabetes E11.9 [facility] [address] [facility] [id number] [address] [place] [id number] Oct, Bipolar I disorder, most rec ent episode (or current) mixed, moderate F31.62 [facility] [address] [facility] [id number] [address] [place] [id number] Sep, Chronic pain G89.29 [facility] [address] [facility] [id number] [address] [place] [id number] Sep, Chronic pain G89.29 [facility] [address] [facility] [id number] [address] [place] [id number] Aug, Chronic pain G89.29 [facility] [address] [facility] [id number] [address] [place] [id number] Jul, [facility] [address] [facility] [id number] [address] [place] [id number] Jul, Diabetes E11.9 [facility] [address] [facility] [id number] [address] [place] [id number] Jul, Chronic pain G89.29 [facility] [address] [facility] [id number] [address] [place] [id number] Jul, Bipolar I disorder, most rec ent episode (or current) mixed, moderate F31.62 [facility] [address] [facility] [id number] [address] [place] [id number] Jun, Bipolar I disorder, most rec ent episode (or current) mixed, moderate F31.62 [place] [address] [facility] [id number] [address] [place] [id number] Jun, [facility] [address] [facility] [id number] [address] [place] [id number] Jun, Bipolar I disorder, most rec ent episode (or current) mixed, moderate F31.62 [place] [id number] [facility] [id number] [address] [place] [id number] 30 May, 2016 Insomnia, unspecified type G 47.00 [facility] [address] [facility] [id number] [address] [place] [id number] May, Bipolar I disorder, most rec ent episode (or current) mixed, moderate F31.62 [facility] [address] [facility] [id number] [address] [place] [id number] 14 May, 2016 [facility] [address] [facility] [id number] [address] [place] [id number] 08 May, 2016 Bipolar I disorder, most rec ent episode (or current) mixed, moderate F31.62 [facility] [address] [facility] [id number] [address] [place] [id number] 06 May, 2016 Diabetes E11.9 and Essential hypertension I10 [facility] [address] [facility] [id number] [address] [place] [id number] Apr, Chronic pain G89.29 [facility] [address] [id number] [address] [place] [id number] Apr, Bipolar I disorder, most rec ent episode (or current) mixed, moderate F31.62 [facility] [address] [facility] [id number] [address] [place] [id number] Apr, [facility] [address] [facility] [id number] [address] [place] [id number] Apr, [facility] [address] [facility] [id number] [address] [place] [id number] Mar, Chronic pain G89.29 ; Headac he, unspecified headache type R51 ; Neuropathy G62.9 ; Pain of right hip joint M25.551 and Essential hypertension I10 [place] [address] [facility] [id number] [address] [place] [id number] Mar, Chronic pain G89.29 [facility] [address] [facility] [id number] [address] [place] [id number] Mar, Bipolar I disorder, most rec ent episode (or current) mixed, moderate F31.62 [place] [address] [facility] [id number] [address] [place] [id number] Feb, Bipolar I disorder, most rec ent episode (or current) mixed, moderate F31.62 and Insomnia, unspecified type G47.00 [place] [address] [facility] [id number] [address] [place] [id number] Feb, Chronic pain G89.29 [facility] [address] [facility] [id number] [address] [place] [id number] Feb, Bipolar I disorder, most rec ent episode (or current) mixed, moderate F31.62 [place] [address] [facility] [id number] [address] [place] [id number] January, Bipolar I disorder, most rec ent episode (or current) mixed, moderate F31.62 [place] [address] [facility] [id number] [address] [place] [address] January, Chronic pain G89.29 [facility] [address] [facility] [id number] [address] [place] [id number] January, Chronic pain G89.29 and Esse ntial hypertension I10 [facility] [address] [facility] [id number] [address] [place] [id number] January, Bipolar I disorder, most rec ent episode (or current) mixed, moderate F31.62 [facility] [address] [facility] [id number] [address] [place] [id number] Dec, [facility] [address] [facility] [id number] [address] [place] [id number] Dec, [facility] [address] [place] [id number] [address] [place] [id number] Dec, [facility] [address] [facility] [id number] [address] [place] [id number] Dec, [facility] [address] [facility] [id number] [address] [place] [id number] Nov, Reactive airway disease J45. 909 [facility] [address] [place] [id number] [address] [place] [id number] Nov, [facility] [address] [facility] [id number] [address] [place] [id number] Nov, [facility] [address] [facility] [id number] [address] [place] [id number] Nov, [facility] [address] [facility] [id number] [address] [place] [id number] Nov, [facility] [address] [place] [id number] [address] [place] [id number] Nov, Onychomycosis B35.1 ; Hammer toe M20.40 ; [place] or callus L84 and DM neuro manif type II E11.49 [facility] [address] [address] Nov, Chronic pain G89.29 ; Leukoc ytosis D72.829 and Diabetes E11.9 [place] [address] [address] Nov, [place] [address] [address] Oct, Bronchitis J40 [place] [address] [id number] Oct, [place] [address] [address] Oct, [place] [address] [address] Oct, Mastoiditis, unspecified lat erality H70.90 and Type 2 diabetes mellitus with complication E11.8 [place] [address] [address] Sep, [place] [address] [address] Sep, Dysuria R30.0 ; Cough R05 ; Benign prostatic hyperplasia with lower urinary tract symptoms, unspecified morphology N40.1 ; Hypokalemia E87.6 and Eustachian tube dysfunction, unspecified laterality H69.80 [place] [address] [address] Sep, Moderate mixed bipolar I dis order F31.62 [place] [address] [id number] Sep, Hypokalemia E87.6 [place] [address] [address] Sep, [place] [address] [address] Sep, Upper respiratory tract infe ction, unspecified type J06.9 [facility] [address] [id number] [address] [place] [id number] Aug, [facility] [address] [id number] [address] [place] [id number] Aug, Dysuria R30.0 [facility] [address] [id number] [address] [place] [id number] Aug, [facility] [address] [id number] [address] [place] [id number] Jul, [facility] [address] [id number] [address] [place] [id number] Jul, [facility] [address] [id number] [address] [place] [id number] Jul, [facility] [address] [id number] [address] [place] [id number] Jul, [facility] [address] [id number] [address] [place] [id number] Jun, [facility] [address] [id number] [address] [place] [id number] Jun, [facility] [address] [id number] [address] [place] [id number] Jun, [facility] [address] [facility] [id number] [address] [place] [id number] May, [facility] [address] [id number] [address] [place] [id number] May, Bipolar I disorder, most rec ent episode (or current) mixed, moderate 296.62 [facility] [address] [id number] [address] [place] [id number] 16 May, 2015 [facility] [address] [facility] [id number] [address] [place] [id number] May, Bipolar I disorder, most rec ent episode (or current) mixed, moderate 296.62 and Major depressive disorder, recurrent episode, severe, specified as with psychotic behavior 296.34 [facility] [address] [id number] [address] [place] [id number] May, Bipolar I disorder, most rec ent episode (or current) mixed, moderate 296.62 [facility] [address] [id number] [address] [place] [id number] May, [facility] [address] [id number] [address] [place] [id number] Apr, [facility] [address] [id number] [address] [place] [address] Apr, [facility] [address] [facility] [id number] [address] [place] [id number] Apr, Unspecified disorder of kidn ey and ureter 593.9 and Diabetes mellitus type 2, uncontrolled 250.02 [facility] [address] [facility] [id number] [address] [place] [id number] Apr, [facility] [address] [id number] [address] [place] [id number] Apr, [facility] [address] [facility] [id number] [address] [place] [id number] Apr, [facility] [address] [facility] [id number] [address] [place] [address] Apr, [facility] [address] [id number] [address] [place] [id number] Apr, Diabetes mellitus type II, u ncontrolled 250.02 [facility] [address] [id number] [address] [place] [id number] Apr, [facility] [address] [facility] [id number] [address] [place] [id number] Mar, [facility] [address] [facility] [id number] [address] [place] [id number] Mar, [facility] [address] [place] [id number] [address] [place] [id number] Mar, [facility] [address] [place] [id number] [address] [place] [id number] Mar, Major depressive disorder, r ecurrent episode, severe, specified as with psychotic behavior 296.34 and Bipolar I disorder, most recent episode (or current) mixed, moderate 296.62 [facility] [address] [place] [id number] [address] [place] [address] Mar, Diabetes 250.00 ; Anuria 788 .5 ; Nausea and vomiting 787.01 and Diarrhea 787.91 [facility] [address] [place] [id number] [address] [place] [address] Mar, Diabetes 250.00 [facility] [address] [place] [id number] [place] [address] Mar, [facility] [address] [address] Mar, Diabetes 250.00 [facility] [address] [place] [id number] [address] [place] [id number] Mar, [facility] [address] [address] Mar, [facility] [address] [place] [id number] [address] [place] [id number] Mar, [facility] [address] [place] [id number] [address] [place] [id number] Mar, [facility] [address] [place] [id number] [address] [place] [id number] Mar, Bipolar I disorder, most rec ent episode (or current) mixed, moderate 296.62 and Major depressive disorder, recurrent episode, severe, specified as with psychotic behavior 296.34 [facility] [address] [place] [id number] [address] [place] [address] Mar, Magnesium deficiency 275.2 ; Hypokalemia 276.8 ; Nausea & vomiting 787.01 and Diabetes mellitus type 2, uncontrolled 250.02 [facility] [address] [id number] Feb, [facility] [address] [address] Feb, Bipolar I disorder, most rec ent episode (or current) mixed, moderate 296.62 [place] [address] [address] Feb, Nausea and vomiting 787.01 ; Left elbow pain 719.42 ; Anuria 788.5 and Diabetes 250.00 [place] [address] [address] Feb, [place] [address] [address] Feb, Hypopotassemia 276.8 and Hyp okalemia 276.8 [place] [address] [address] Feb, Hypopotassemia 276.8 and Hyp okalemia 276.8 [place] [address] [address] Feb, Seborrheic keratoses 702.19 [place] [address] [address] Feb, Hypopotassemia 276.8 and Low magnesium levels 275.2 [place] [address] [address] January, [facility] [address] [address] January, [place] [address] [address] January, [facility] [address] [address] January, Scalp lesion 709.9 [facility] [address] [id number] [address] [place] [id number] January, [facility] [address] [id number] [address] [place] [id number] Dec, Tear of medial cartilage or meniscus of knee, current 836.0 and Chondromalacia 733.92 [facility] [address] [id number] [address] [place] [id number] Dec, [facility] [address] [id number] [address] [place] [id number] Dec, [facility] [address] [id number] [address] [place] [id number] Dec, Squamous cell carcinoma, 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 [facility] [address] [id number] [address] [place] [id number] Dec, [facility] [address] [id number] [address] [place] [id number] Dec, [facility] [address] [id number] [address] [place] [id number] Nov, [facility] [address] [id number] [address] [place] [phone] Nov, [facility] [address] [id number] [address] [place] [id number] Nov, [facility] [address] [id number] [address] [place] [id number] Nov, [facility] [address] [id number] [address] [place] [id number] Nov, [facility] [address] [id number] [address] [place] [id number] Nov, [facility] [address] [id number] [address] [place] [id number] Nov, [facility] [address] [id number] [address] [place] [id number] Nov, [facility] [address] [id number] [address] [place] [address], [place] [address] Nov, [facility] [address] [id number] [address] [place] [address], [place] [address] Nov, [facility] [address] [id number] [address] [place] [address], [place] [address] Nov, [facility] [address] [id number] [address] [place] [address], [place] [address] Nov, [facility] [address] [id number] [address] [place] [address], [place] [address] Oct, 2014 [facility] [address] [id number] [address] [place] [address], [place] [address] Oct, 2014 [facility] [address] [id number] [address] [place] [address], [place] [address] Oct, 2014 [facility] [address] [id number] [address] [place] [id number] Oct, 2014 [facility] [address] [id number] [address] [place] [address], [place] [address] Oct, 2014 [facility] [address] [id number] [address] [place] [address], [place] [address] Oct, 2014 [facility] [address] [id number] [address] [place] [address], [place] [address] Oct, 2014 [facility] [address] [id number] [address] [place] [id number] Oct, 2014 [facility] [address] [id number] [address] [place] [id number] Oct, [facility] [address] [id number] [address] [place] [id number] Sep, [facility] [address] [id number] [address] [place] [id number] Sep, [facility] [address] [id number] [address] [place] [address], [place] [address] Sep, [facility] [address] [id number] [address] [place] [address], [place] [address] Sep, [facility] [address] [id number] [address] [place] [address], [place] [address] Sep, [facility] [address] [id number] [address] [place] [address], [place] [address] Sep, [facility] [address] [id number] [address] [place] [address], [place] [address] Sep, [facility] [address] [id number] [address] [place] [address], [place] [address] Sep, [facility] [address] [id number] [address] [place] [address], [place] [address] Sep, [facility] [address] [id number] [address] [place] [address], [place] [address] Sep, [facility] [address] [id number] [address] [place] [address], [place] [address] Sep, [facility] [address] [id number] [address] [place] [address], [place] [address] Sep, [facility] [address] [id number] [address] [place] [address], [place] [address] Sep, [facility] [address] [id number] [address] [place] [address], [place] [address] Sep, [facility] [address] [id number] [address] [place] [address], [place] [address] Sep, [facility] [address] [id number] [address] [place] [address], [place] [address] Sep, [facility] [address] [id number] [address] [place] [address], [place] [address] Aug, [facility] [address] [id number] [address] [place] [address], [place] [address] Aug, [facility] [address] [id number] [facility] [place] [address] Aug, [facility] [address] [id number] [address] [place] [address], [place] [address] Aug, [facility] [address] [id number] [facility] [place] [address] Aug, [facility] [address] [id number] [address] [place] [address], [place] [address] Aug, [facility] [address] [id number] [facility] [place] [address] Aug, [facility] [address] [id number] [address] [place] [address], [place] [address] Aug, [facility] [address] [id number] [address] [place] [address], [place] [address] Aug, [facility] [address] [id number] [address] [place] [address], [place] [address] Aug, [facility] [address] [id number] [address] [place] [address], [place] [address] Aug, [facility] [address] [place] [id number] Aug, [facility] [address] [id number] [address] [place] [address], [place] [address] Aug, [facility] [address] [id number] [address] [place] [address], [place] [address] Aug, [facility] [address] [id number] [address] [place] [address], [place] [address] Aug, [facility] [address] [id number] [address] [place] [address], [place] [address] Aug, [facility] [address] [id number] [address] [place] [address], [place] [address] Aug, [facility] [address] [id number] [address] [place] [address], [place] [address] Aug, [facility] [address] [id number] [address] [place] [address], [place] [address] 08 Aug, 2014 [facility] [address] [id number] [address] [place] [address], [place] [address] Aug, [facility] [address] [id number] [address] [place] [address], [place] [address] Aug, [facility] [address] [id number] [address] [place] [address], [place] [address] Aug, [facility] [address] [id number] [address] [place] [address], [place] [address] Aug, [facility] [address] [id number] [address] [place] [address], [place] [address] Aug, [facility] [address] [id number] [address] [place] [address], [place] [address] Aug, [facility] [address] [id number] [address] [place] [address], [place] [address] Aug, [facility] [address] [id number] [address] [place] [address], [place] [address] Aug, [facility] [address] [id number] [address] [place] [address], [place] [address] Aug, [facility] [address] [id number] [address] [place] [address], [place] [address] Aug, [facility] [address] [id number] [address] [place] [address], [place] [address] Aug, [facility] [address] [id number] [address] [place] [address], [place] [address] Jul, [facility] [address] [id number] [address] [place] [address], [place] [address] Jul, [facility] [address] [id number] [address] [place] [address], [place] [address] Jul, [facility] [address] [id number] [address] [place] [address], [place] [address] Jul, [facility] [address] [id number] [address] [place] [address], [place] [address] Jul, [facility] [address] [id number] [address] [place] [address], [place] [address] Jul, [facility] [address] [id number] [address] [place] [address], [place] [address] Jul, [facility] [address] [id number] [address] [place] [address], [place] [address] Jul, [facility] [address] [id number] [address] [place] [address], [place] [address] Jul, [facility] [address] [id number] [address] [place] [address], [place] [address] Jul, [facility] [address] [id number] [address] [place] [address], [place] [address] Jun, [facility] [address] [id number] [address] [place] [address], [place] [address] Jun, [facility] [address] [id number] [address] [place] [address], [place] [address] Jun, [facility] [address] [id number] [address] [place] [address], [place] [address] Jun, [facility] [address] [id number] [address] [place] [address], [place] [address] Jun, [facility] [address] [id number] [address] [place] [address], [place] [address] Jun, [facility] [address] [id number] [address] [place] [address], [place] [address] Jun, [facility] [address] [id number] [address] [place] [address], [place] [address] Jun, [facility] [address] [id number] [address] [place] [address], [place] [address] Jun, [facility] [address] [id number] [address] [place] [address], [place] [address] Jun, [facility] [address] [id number] [address] [place] [address], [place] [address] 29 May, 2013 [facility] [address] [id number] [address] [place] [address], [place] [address] 29 Sep, 2013 [facility] [address] [id number] [address] [place] [address], [place] [address] 26 Sep, 2013 [facility] [address] [id number] [address] [place] [address], [place] [address] 26 Sep, 2013 [facility] [address] [id number] [address] [place] [address], [place] [address] 17 May, 2013 [facility] [address] [id number] [address] [place] [address], [place] [address] 17 May, 2013 [facility] [address] [id number] [address] [place] [address], [place] [address] 15 May, 2013 [facility] [address] [id number] [address] [place] [address], [place] [address] 15 May, 2013 [facility] [address] [id number] [address] [place] [address], [place] [address] 15 May, 2013 [facility] [address] [id number] [address] [place] [address], [place] [address] 15 May, 2013 [facility] [address] [id number] [address] [place] [address] 10 Sep, 2013 [facility] [address] [id number] [address] [place] [address], [place] [address] 10 May, 2013 [facility] [address] [id number] [address] [place] [address], [place] [address] 09 Sep, 2013 [facility] [address] [id number] [address] [place] [address], [place] [address] 09 Sep, 2013 [facility] [address] [id number] [facility] [place] [address] May, [facility] [address] [id number] [address] [place] [address], [place] [address] May, [facility] [address] [id number] [facility] [place] [address] Apr, [facility] [address] [id number] [address] [place] [address], [place] [address] Apr, [facility] [address] [id number] [address] [place] [address], [place] [address] Apr, [facility] [address] [id number] [address] [place] [address], [place] [address] Apr, [facility] [address] [id number] [address] [place] [address], [place] [address] Apr, [facility] [address] [id number] [address] [place] [address], [place] [address] Apr, [facility] [address] [id number] [address] [place] [address], [place] [address] Apr, [facility] [address] [id number] [address] [place] [address], [place] [address] Apr, [facility] [address] [id number] [address] [place] [address], [place] [address] Apr, [facility] [address] [id number] [address] [place] [address], [place] [address] Apr, [facility] [address] [id number] [address] [place] [address], [place] [address] Apr, [facility] [address] [id number] [address] [place] [address], [place] [address] Apr, [facility] [address] [id number] [address] [place] [address], [place] [address] Apr, [facility] [address] [id number] [address] [place] [address], [place] [address] Apr, [facility] [address] [id number] [address] [place] [address], [place] [address] Apr, [facility] [address] [id number] [address] [place] [address], [place] [address] Mar, [facility] [address] [id number] [address] [place] [address], [place] [address] Mar, [facility] [address] [id number] [address] [place] [address], [place] [address] Mar, [facility] [address] [id number] [address] [place] [address], [place] [address] Mar, [facility] [address] [id number] [address] [place] [address], [place] [address] Mar, [facility] [address] [id number] [address] [place] [address], [place] [address] Mar, [facility] [address] [id number] [address] [place] [address], [place] [address] Mar, [facility] [address] [id number] [address] [place] [address], [place] [address] Mar, [facility] [address] [id number] [address] [place] [address], [place] [address] Mar, [facility] [address] [id number] [address] [place] [address], [place] [address] Mar, [facility] [address] [id number] [address] [place] [address], [place] [address] Mar, [facility] [address] [id number] [address] [place] [address], [place] [address] Mar, [facility] [address] [id number] [address] [place] [address], [place] [address] Mar, [facility] [address] [id number] [address] [place] [address], [place] [address] Mar, [facility] [address] [id number] [address] [place] [address], [place] [address] Mar, [facility] [address] [id number] [facility] [place] [address] Mar, [facility] [address] [id number] [address] [place] [address], [place] [address] Mar, [facility] [address] [id number] [address] [place] [address], [place] [address] Mar, [facility] [address] [id number] [address] [place] [address], [place] [address] Feb, [facility] [address] [id number] [address] [place] [address], [place] [address] Feb, [facility] [address] [id number] [address] [place] [address], [place] [address] Feb, [facility] [address] [id number] [address] [place] [address], [place] [address] Feb, [facility] [address] [id number] [address] [place] [address], [place] [address] Feb, [facility] [address] [id number] [address] [place] [address], [place] [address] Feb, [facility] [address] [id number] [address] [place] [address], [place] [address] Feb, [facility] [address] [id number] [address] [place] [address], [place] [address] Feb, [facility] [address] [id number] [address] [place] [address], [place] [address] Feb, [facility] [address] [id number] [address] [place] [address], [place] [address] Feb, [facility] [address] [id number] [address] [place] [address], [place] [address] Feb, [facility] [address] [id number] [address] [place] [address], [place] [address] Feb, [facility] [address] [id number] [facility] [place] [address] Feb, [facility] [address] [id number] [facility] [place] [address] Feb, [facility] [address] [id number] [facility] [place] [address] January, [facility] [address] [id number] [facility] [place] [address] January, [facility] [address] [id number] [facility] [place] [address] January, [facility] [address] [id number] [address] [place] [address], [place] [address] January, [facility] [address] [id number] [address] [place] [address], [place] [address] January, [facility] [address] [id number] [address] [place] [address], [place] [address] January, [facility] [address] [id number] [address] [place] [address], [place] [address] January, [facility] [address] [id number] [address] [place] [address], [place] [address] January, [facility] [address] [id number] [address] [place] [address], [place] [address] January, [facility] [address] [id number] [address] [place] [address], [place] [address] January, [facility] [address] [id number] [address] [place] [address], [place] [address] January, [facility] [address] [id number] [address] [place] [address], [place] [address] January, [facility] [address] [id number] [address] [place] [address], [place] [address] January, [facility] [address] [id number] [address] [place] [address], [place] [address] January, [facility] [address] [id number] [facility] [place] [address] Dec, [facility] [address] [id number] [facility] [place] [address] Dec, [facility] [address] [id number] [address] [place] [address], [place] [address] Dec, [facility] [address] [id number] [address] [place] [address], [place] [address] Dec, [facility] [address] [id number] [address] [place] [address], [place] [address] Dec, [facility] [address] [id number] [address] [place] [address], [place] [address] Dec, [facility] [address] [id number] [address] [place] [address], [place] [address] Dec, [facility] [address] [id number] [address] [place] [address], [place] [address] Dec, [facility] [address] [id number] [address] [place] [address], [place] [address] Dec, [facility] [address] [id number] [address] [place] [address], [place] [address] Dec, [facility] [address] [id number] [address] [place] [address], [place] [address] Nov, [facility] [address] [id number] [address] [place] [address], [place] [address] Nov, [facility] [address] [id number] [address] [place] [address], [place] [address] Nov, [facility] [address] [id number] [address] [place] [address], [place] [address] Nov, [facility] [address] [id number] [address] [place] [address], [place] [address] Nov, [facility] [address] [id number] [address] [place] [address], [place] [address] 08 Nov, 2013 [facility] [address] [id number] [address] [place] [address], [place] [address] 05 Nov, 2013 [facility] [address] [id number] [address] [place] [address], [place] [address] 05 Nov, 2013 [facility] [address] [id number] [address] [place] [address], [place] [address] Nov, [facility] [address] [id number] [address] [place] [address], [place] [address] Nov, [facility] [address] [id number] [address] [place] [address], [place] [address] Oct, [facility] [address] [id number] [address] [place] [address], [place] [address] Oct, [facility] [address] [id number] [address] [place] [address], [place] [address] Oct, [facility] [address] [id number] [address] [place] [address], [place] [address] Oct, [facility] [address] [id number] [address] [place] [address], [place] [address] 20 Oct, 2013 [facility] [address] [id number] [address] [place] [address], [place] [address] 20 Oct, 2013 [facility] [address] [id number] [address] [place] [address], [place] [address] 14 Oct, 2013 [facility] [address] [id number] [address] [place] [address], [place] [address] 14 Oct, 2013 [facility] [address] [id number] [address] [place] [address], [place] [address] 05 Oct, 2013 [facility] [address] [id number] [address] [place] [address], [place] [address] 05 Oct, 2013 [facility] [address] [id number] [address] [place] [address], [place] [address] Oct, [facility] [address] [id number] [address] [place] [address], [place] [address] Oct, [facility] [address] [id number] [address] [place] [address], [place] [address] Oct, [facility] [address] [id number] [address] [place] [address], [place] [address] Oct, [facility] [address] [id number] [address] [place] [address], [place] [address] Sep, [facility] [address] [id number] [address] [place] [address], [place] [address] Sep, [facility] [address] [id number] [address] [place] [address], [place] [address] Sep, [facility] [address] [id number] [address] [place] [address], [place] [address] Sep, [facility] [address] [id number] [address] [place] [address], [place] [address] Sep, [facility] [address] [id number] [address] [place] [address], [place] [address] Sep, [facility] [address] [id number] [address] [place] [address], [place] [address] Sep, [facility] [address] [id number] [address] [place] [address], [place] [address] Sep, [facility] [address] [id number] [address] [place] [address], [place] [address] Sep, [facility] [address] [id number] [address] [place] [address], [place] [address] Sep, [facility] [address] [id number] [address] [place] [address], [place] [address] Aug, [facility] [address] [id number] [address] [place] [address], [place] [address] Aug, [facility] [address] [id number] [address] [place] [address], [place] [address] Jul, [facility] [address] [id number] [address] [place] [address], [place] [address] Jul, [facility] [address] [id number] [address] [place] [address], [place] [address] Jul, [facility] [address] [id number] [address] [place] [address], [place] [address] Jul, [facility] [address] [id number] [address] [place] [address], [place] [address] Jul, [facility] [address] [id number] [address] [place] [address], [place] [address] Jul, [facility] [address] [id number] [address] [place] [address], [place] [address] Jul, [facility] [address] [id number] [address] [place] [address], [place] [address] Jul, [facility] [address] [id number] [address] [place] [address], [place] [address] Jul, [facility] [address] [id number] [address] [place] [address], [place] [address] Jul, [facility] [address] [id number] [address] [place] [address], [place] [address] Jul, [facility] [address] [id number] [address] [place] [address], [place] [address] Jul, [facility] [address] [id number] [address] [place] [address], [place] [address] Jul, [facility] [address] [id number] [address] [place] [address], [place] [address] Jul, [facility] [address] [id number] [address] [place] [address], [place] [address] Jul, [facility] [address] [id number] [address] [place] [address], [place] [address] Jul, [facility] [address] [id number] [address] [place] [address], [place] [address] Jul, 2012 [facility] [address] [id number] [address] [place] [address], [place] [address] Jul, [facility] [address] [id number] [address] [place] [address], [place] [address] Jul, 2012 [facility] [address] [id number] [address] [place] [address], [place] [address] Jun, 2012 [facility] [address] [id number] [address] [place] [address], [place] [address] Jun, 2012 [facility] [address] [id number] [address] [place] [address], [place] [address] Jun, 2012 [facility] [address] [id number] [address] [place] [address], [place] [address] Jun, 2012 [facility] [address] [id number] [address] [place] [id number] Jun, [facility] [address] [id number] [address] [place] [id number] Jun, [facility] [address] [id number] [address] [place] [id number] Jun, [facility] [address] [id number] [address] [place] [address] Jun, [facility] [address] [id number] [address] [place] [id number] Jun, [facility] [address] [id number] [address] [place] [id number] Jun, [facility] [address] [id number] [address] [place] [id number] Jun, [facility] [address] [id number] [address] [place] [id number] May, [facility] [address] [id number] [address] [place] [id number] 25 May, 2013 [facility] [address] [id number] [address] [place] [address], [place] [address] 19 May, 2012 [facility] [address] [id number] [address] [place] [address], [place] [address] 17 May, 2013 [facility] [address] [id number] [address] [place] [address], [place] [address] 11 May, 2012 [facility] [address] [id number] [address] [place] [address], [place] [address] 10 May, 2012 [facility] [address] [id number] [address] [place] [address], [place] [address] 09 May, 2013 [facility] [address] [id number] [address] [place] [address], [place] [address] 05 May, 2013 [facility] [address] [id number] [address] [place] [address], [place] [address] Apr, [facility] [address] [id number] [address] [place] [address], [place] [address] Apr, [facility] [address] [id number] [address] [place] [address], [place] [address] Apr, [facility] [address] [id number] [address] [place] [address], [place] [address] Apr, [facility] [address] [id number] [address] [place] [address], [place] [address] Apr, [facility] [address] [id number] [address] [place] [address], [place] [address] Mar, [facility] [address] [id number] [address] [place] [address], [place] [address] Mar, [facility] [address] [id number] [address] [place] [address], [place] [address] Mar, [facility] [address] [id number] [address] [place] [address], [place] [address] Mar, [facility] [address] [id number] [facility] [place] [address] Mar, [facility] [address] [id number] [address] [place] [address], [place] [address] Mar, [facility] [address] [id number] [address] [place] [address], [place] [address] Mar, [facility] [address] [id number] [address] [place] [address], [place] [address] Mar, [facility] [address] [id number] [address] [place] [address], [place] [address] Feb, [facility] [address] [id number] [address] [place] [address], [place] [address] Feb, [facility] [address] [id number] [address] [place] [address], [place] [address] January, [facility] [address] [id number] [address] [place] [address], [place] [address] January, [facility] [address] [id number] [address] [place] [address], [place] [address] Dec, [facility] [address] [id number] [address] [place] [address], [place] [address] Dec, [facility] [address] [id number] [address] [place] [address], [place] [address] Nov, [facility] [address] [id number] [address] [place] [address], [place] [address] Nov, [facility] [address] [id number] [address] [place] [address], [place] [address] Nov, [facility] [address] [id number] [address] [place] [address], [place] [address] Nov, [facility] [address] [id number] [address] [place] [address], [place] [address] Oct, [facility] [address] [id number] [address] [place] [address], [place] [address] Oct, [facility] [address] [id number] [address] [place] [address], [place] [address] Oct, [facility] [address] [id number] [address] [place] [address], [place] [address] Oct, [facility] [address] [id number] [address] [place] [address], [place] [address] 16 Oct, 2012 [facility] [address] [id number] [address] [place] [address], [place] [address] 14 Oct, 2012 [facility] [address] [id number] [address] [place] [address], [place] [address] 08 Oct, 2012 [facility] [address] [id number] [address] [place] [address], [place] [address] 07 Oct, 2012 [facility] [address] [id number] [address] [place] [address], [place] [address] 03 Oct, 2012 [facility] [address] [id number] [address] [place] [address], [place] [address] Sep, [facility] [address] [id number] [address] [place] [address], [place] [address] Sep, [facility] [address] [id number] [address] [place] [address], [place] [address] Sep, [facility] [address] [id number] [address] [place] [address], [place] [address] Sep, [facility] [address] [id number] [address] [place] [address], [place] [address] Sep, [facility] [address] [id number] [address] [place] [address], [place] [address] Sep, [facility] [address] [id number] [address] [place] [address], [place] [address] 09 Sep, 2012 [facility] [address] [id number] [address] [place] [address], [place] [address] 08 Sep, 2012 [facility] [address] [id number] [address] [place] [address], [place] [address] 31 Aug, 2012 [facility] [address] [id number] [address] [place] [address], [place] [address] Aug, [facility] [address] [id number] [address] [place] [address], [place] [address] Aug, [facility] [address] [id number] [address] [place] [address], [place] [address] Aug, [facility] [address] [id number] [address] [place] [address], [place] [address] Aug, [facility] [address] [id number] [address] [place] [address], [place] [address] Aug, [facility] [address] [id number] [address] [place] [address], [place] [address] Aug, [facility] [address] [id number] [address] [place] [address], [place] [address] Aug, [facility] [address] [id number] [address] [place] [address], [place] [address] Jul, [facility] [address] [id number] [address] [place] [address], [place] [address] Jul, [facility] [address] [id number] [address] [place] [address], [place] [address] Jul, [facility] [address] [id number] [address] [place] [address], [place] [address] Jul, [facility] [address] [id number] [address] [place] [address], [place] [address] Jul, [facility] [address] [id number] [address] [place] [address], [place] [address] Jul, [facility] [address] [id number] [address] [place] [address], [place] [address] Jun, [facility] [address] [id number] [address] [place] [address], [place] [address] Jun, [facility] [address] [id number] [address] [place] [address], [place] [address] Jun, [facility] [address] [id number] [address] [place] [address], [place] [address] Jun, [facility] [address] [id number] [address] [place] [address], [place] [address] Jun, [facility] [address] [id number] [address] [place] [address], [place] [address] Jun, [facility] [address] [id number] [address] [place] [address], [place] [address] Jun, [facility] [address] [id number] [address] [place] [address], [place] [address] Jun, [facility] [address] [id number] [address] [place] [address], [place] [address] Jun, [facility] [address] [id number] [address] [place] [address], [place] [address] 26 May, 2012 [facility] [address] [id number] [address] [place] [address], [place] [address] 24 May, 2012 [facility] [address] [id number] [address] [place] [address], [place] [address] 18 May, 2012 [facility] [address] [id number] [address] [place] [address], [place] [address] 30 Apr, 2012 [facility] [address] [id number] [address] [place] [address], [place] [address] 29 Apr, 2012 [facility] [address] [id number] [address] [place] [address], [place] [address] 18 Apr, 2012 [facility] [address] [id number] [address] [place] [address], [place] [address] 14 Apr, 2012 [facility] [address] [id number] [address] [place] [address], [place] [address] 10 Apr, 2012 [facility] [address] [id number] [address] [place] [address], [place] [address] Apr, [facility] [address] [id number] [address] [place] [address], [place] [address] Mar, [facility] [address] [id number] [address] [place] [address], [place] [address] Mar, [facility] [address] [id number] [address] [place] [address], [place] [address] Mar, [facility] [address] [id number] [address] [place] [address], [place] [address] Mar, [facility] [address] [id number] [address] [place] [address], [place] [address] Feb, [facility] [address] [id number] [address] [place] [address], [place] [address] Feb, [facility] [address] [id number] [address] [place] [address], [place] [address] Feb, [facility] [address] [id number] [address] [place] [address], [place] [address] Feb, [facility] [address] [id number] [address] [place] [address], [place] [address] Feb, [facility] [address] [id number] [address] [place] [address], [place] [address] January, [facility] [address] [id number] [address] [place] [address], [place] [address] January, [facility] [address] [id number] [address] [place] [address], [place] [address] January, [facility] [address] [id number] [address] [place] [address], [place] [address] January, [facility] [address] [id number] [address] [place] [address], [place] [address] January, [facility] [address] [id number] [address] [place] [address], [place] [address] January, [facility] [address] [id number] [address] [place] [address], [place] [address] Dec, [facility] [address] [id number] [address] [place] [address], [place] [address] 24 Dec, 2011 [facility] [address] [id number] [address] [place] [address], [place] [address] 17 Dec, 2011 [facility] [address] [id number] [address] [place] [address], [place] [address] Dec, [facility] [address] [id number] [address] [place] [address], [place] [address] Dec, [facility] [address] [id number] [address] [place] [address], [place] [address] 27 Nov, 2011 [facility] [address] [id number] [address] [place] [address], [place] [address] 14 Nov, 2011 [facility] [address] [id number] [address] [place] [address], [place] [address] Nov, [facility] [address] [id number] [address] [place] [address], [place] [address] Nov, [facility] [address] [id number] [address] [place] [address], [place] [address] 29 Oct, 2011 [facility] [address] [id number] [address] [place] [address], [place] [address] Oct, [facility] [address] [id number] [address] [place] [address], [place] [address] 24 Oct, 2011 [facility] [address] [id number] [address] [place] [address], [place] [address] 13 Oct, 2011 [facility] [address] [id number] [address] [place] [address], [place] [address] 08 Oct, 2011 [facility] [address] [id number] [address] [place] [address], [place] [address] Sep, [facility] [address] [id number] [address] [place] [address], [place] [address] Sep, [facility] [address] [id number] [address] [place] [address], [place] [address] Sep, [facility] [address] [id number] [address] [place] [address], [place] [address] Sep, [facility] [address] [id number] [address] [place] [address], [place] [address] Sep, [facility] [address] [id number] [address] [place] [address], [place] [address] Sep, [facility] [address] [id number] [address] [place] [address], [place] [address] Aug, [facility] [address] [id number] [address] [place] [address], [place] [address] Aug, [facility] [address] [id number] [address] [place] [address], [place] [address] Aug, [facility] [address] [id number] [address] [place] [address], [place] [address] Jul, [facility] [address] [id number] [address] [place] [address], [place] [address] Jul, [facility] [address] [id number] [address] [place] [address], [place] [address] Jul, [facility] [address] [id number] [address] [place] [address], [place] [address] Jul, [facility] [address] [id number] [address] [place] [address], [place] [address] Jun, [facility] [address] [id number] [address] [place] [address], [place] [address] Jun, [facility] [address] [id number] [address] [place] [address], [place] [address] Jun, [facility] [address] [id number] [address] [place] [address], [place] [address] Jun, [facility] [address] [id number] [address] [place] [address], [place] [address] 10 Jun, 2011 [facility] [address] [id number] [address] [place] [address], [place] [address] 10 Jun, 2011 [facility] [address] [id number] [address] [place] [address], [place] [address] 11 Mar, 2011 [facility] [address] [id number] [address] [place] [address], [place] [address] 18 Dec, 2010 [facility] [address] [id number] [address] [place] [address], [place] [address] 11 Dec, 2010 [facility] [address] [id number] [address] [place] [address], [place] [address] 18 Nov, 2010 [facility] [address] [id number] [address] [place] [address], [place] [address] 16 Nov, 2010 [facility] [address] [id number] [address] [place] [address], [place] [address] 10 Sep, 2010 [facility] [address] [id number] [address] [place] [address], [place] [address] 31 Aug, 2010 [facility] [address] [id number] [address] [place] [address], [place] [address] 29 Aug, 2010 [facility] [address] [id number] [address] [place] [address], [place] [address] 29 Aug, 2010 [facility] [address] [id number] [address] [place] [address], [place] [address] 29 Aug, 2010 [facility] [address] [id number] [address] [place] [address], [place] [address] 27 Aug, 2010 [facility] [address] [id number] [address] [place] [address], [place] [address] 14 Aug, 2010 [facility] [address] [id number] [address] [place] [address], [place] [address] 08 Aug, 2010 [facility] [address] [id number] [address] [place] [address], [place] [address] 08 Aug, 2010 [facility] [address] [id number] [address] [place] [address], [place] [address] Aug, [facility] [address] [id number] [address] [place] [address], [place] [address] Aug, [facility] [address] [id number] [address] [place] [address], [place] [address] Aug, [facility] [address] [id number] [address] [place] [address] Aug, [facility] [address] [id number] [address] [place] [address], [place] [address] Jul, [facility] [address] [id number] [address] [place] [address] Jul, [facility] [address] [id number] [address] [place] [address], [place] [address] Jul, [facility] [address] [id number] [address] [place] [id number] Jul, [facility] [address] [id number] [address] [place] [address] Jul, [facility] [address] [id number] [address] [place] [address] Jul, [facility] [address] [id number] [address] [place] [address] 24 Jun, 2010 [facility] [address] [id number] [address] [place] [id number] Jun, [facility] [address] [id number] [address] [place] [id number] Jun, [facility] [address] [id number] [address] [place] [address] Jun, [facility] [address] [id number] [address] [place] [id number] Apr, [facility] [address] [id number] [address] [place] [address], [place] [address] Mar, [facility] [address] [id number] [address] [place] [address], [place] [address] 17 Feb, 2010 [facility] [address] [id number] [address] [place] [address], [place] [address] January, [facility] [address] [id number] [address] [place] [address], [place] [address] 15 Dec, 2009 [facility] [address] [id number] [address] [place] [address], [place] [address] Nov, [facility] [address] [id number] [address] [place] [address], [place] [address] 31 Aug, 2009 [facility] [address] [id number] [address] [place] [address], [place] [address] Aug, [facility] [address] [id number] [address] [place] [address], [place] [address] Aug, [facility] [address] [id number] [address] [place] [address], [place] [address] Jul, [facility] [address] [id number] [address] [place] [address], [place] [address] Jul, [facility] [address] [id number] [address] [place] [address], [place] [address] 07 Jul, 2009 [facility] [address] [id number] [address] [place] [address], [place] [address] 30 Jun, 2009 [facility] [address] [id number] [address] [place] [id number] 29 Jun, 2009 [facility] [address] [id number] [address] [place] [address], [place] [address] 26 Jun, 2009 [facility] [address] [id number] [address] [place] [address], [place] [address] 22 Jun, 2009 [facility] [address] [id number] [address] [place] [id number] Jun, [facility] [address] [facility] [id number] [address] [place] [id number] Jun, [facility] [address] [facility] [id number] [address] [place] [id number] Apr, [facility] [address] [facility] [id number] [address] [place] [address] Apr, [facility] [address] [facility] [id number] [address] [place] [id number] Feb, [facility] [address] [facility] [id number] [address] [place] [id number] January, [facility] [address] [facility] [id number] [address] [place] [phone] Dec, IMMUNIZATIONS No Known Immunizations SOCIAL HISTORY Never Assessed REASON FOR VISIT PLAN OF CARE VITAL SIGNS Height 67 in 2014-09-03 Weight 325 lbs 2014-09-03 Temperature 98.1 degrees Fahrenheit 2014-09-03 Heart Rate 80 bpm 2014-09-03 Respiratory Rate 28 2014-09-03 Blood pressure systolic 126 mmHg 2014-09-03 Blood pressure diastolic 90 mmHg 2014-09-03 MEDICATIONS Unknown Medications RESULTS No Results PROCEDURES Procedure Date Ordered Result Body Site MICROALBUMIN, SEMIQUANT Sep 03, 2014 MICROALBUMIN, QUANTITATIVE Sep 03, 2014 INSTRUCTIONS MEDICATIONS ADMINISTERED No Known [...] to urinate 09/16/15 Hospitalization History [facility] inpatient mental health ea rly 2000's Hospitalization History hyperkalemia 10/2017 Hospitalization History fluid in lung
--- OUTSIDE RECORDS SUMMARY | 2020-03-01 18:19 | XMS REPORT ---
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 Name Role Phone NOEMI WASHBURN Unavailable PROBLEMS Type Condition ICD9-CM Code WGR62-CH Code Onset Dates Condition S tatus SNOMED Code Problem Cough R05 Active 86234718 Problem Benign prostatic hyperplasia with lower urinary tract symptoms, unspecified morphology N40.1 Active 70697 6007 Problem Eustachian tube dysfunction, unspecified laterality H69.80 Active 41946745 Problem Chronic pain G89.29 Active 1979424 1 Problem DM neuro manif type II E11.49 Active 56361870 Problem Diabetes E11.9 Active 22273508 Problem Leukocytosis D72.829 Active 7747256 06 Problem Falling R29.6 Active 295833730 Problem Pressure ulcer of other site, stage 3 L89.893 Active 465794035 Problem 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 Active 747066923 Problem Eye exam abnormal R93.8 Active 16 3993316 Problem Dysuria R30.0 Active 11818106 Problem Hypokalemia E87.6 Active 62690840 Problem Morbid obesity E66.01 Active 25936 6002 Problem Anxiety F41.9 Active 42927275 Problem Diabetic polyneuropathy associated with type 2 d iabetes mellitus E11.42 Active 79728843 Problem Essential hypertension I10 Active 33984102 Problem Bilateral primary osteoarthritis of knee M17.0 Active 872068395 Problem Polyneuropathy associated with underlying disease G63 Active 407963665 Problem Anemia of chronic illness D63.8 Acti ve 536566887 Problem Lymphocytosis D72.820 Active 954199 09 Problem Retinal edema H35.81 Active 559038 6 Problem Chronic lymphocytic leukemia C91.10 A ctive 25875535 Problem Bipolar disorder, in partial remission, most rec ent episode depressed F31.75 Active 86666875 Problem Pure hypercholesterolemia E78.00 Acti ve 599351551 Problem Primary osteoarthritis of right knee M17.11 Active 503389241063418 Problem Bipolar disorder F31.9 Active 137 68709 Problem Bipolar I disorder, most recent episode (or curr ent) mixed, moderate F31.62 Active 59575380 Problem Chronic diastolic (congestive) heart failure I50.3 2 Active 913895718 Problem Reactive airway disease J45.909 Active 509965264175 Problem Insomnia, unspecified type G47.00 Act sharon 911469847 Problem Other chronic pain G89.29 Active 8 0648553 Problem Other iron deficiency anemia D50.8 A ctive 09862261 Problem Mild cognitive impairment G31.84 Acti ve 525357696 Problem Skin cancer C44.90 Active 57346520 7 ALLERGIES No Information ENCOUNTERS Encounter Location Date Diagnosis [place] [address] [address] [facility] [id number] [address] [place] [phone] Apr, [place] [address] [place] [id number] [address] [place] [phone] Apr, [place] [address] [address] [facility] [id number] [address] [place] [phone] Mar, Bipolar disorder F31.9 and C hronic pain G89.29 [place] [address] [address] [facility] [id number] [address] [place] [phone] Feb, Bipolar disorder F31.9 [place] [address] [facility] [id number] [address] [place] [id number] 17 Feb, 2019 Cellulitis of right upper ex tremity L03.113 and Skin abrasion T14.8XXA [facility] [address] [facility] [id number] [address] [place] [phone] 17 Feb, 2019 Bipolar disorder, in partial remission, most recent episode depressed F31.75 and Mild cognitive impairment G31.84 [place] [address] [address] [facility] [id number] [address] [place] [phone] 13 Feb, 2019 Chronic pain G89.29 [place] [address] [facility] [id number] [address] [place] [phone] 03 Feb, 2019 Bipolar disorder, in partial remission, most recent episode depressed F31.75 and Mild cognitive impairment G31.84 [facility] [address] [id number] [address] [place] [phone] January, Bipolar disorder, in partial remission, most recent episode depressed F31.75 and Mild cognitive impairment G31.84 [facility] [address] [id number] [address] [place] [phone] January, Chronic pain G89.29 and Bipo lar disorder F31.9 [facility] [address] [id number] [address] [place] [id number] January, Bipolar disorder, in partial remission, most recent episode depressed F31.75 and Mild cognitive impairment G31.84 [facility] [address] [id number] [address] [place] [phone] Dec, [facility] [address] [id number] [address] [place] [phone] Dec, Chronic pain G89.29 and Bipo lar disorder F31.9 [facility] [address] [id number] [address] [place] [phone] Dec, Edema of both lower extremit ies R60.0 [facility] [address] [id number] [address] [place] [phone] Dec, Bipolar disorder F31.9 [facility] [address] [id number] [address] [place] [phone] Dec, Bipolar disorder, in partial remission, most recent episode depressed F31.75 and Mild cognitive impairment G31.84 [facility] [address] [id number] [address] [place] [phone] Nov, [facility] [address] [id number] [address] [place] [phone] Nov, Chronic pain G89.29 [facility] [address] [id number] [address] [place] [phone] Nov, Bipolar disorder, in partial remission, most recent episode depressed F31.75 and Mild cognitive impairment G31.84 [place] [address] [address] [place] [id number] [address] [place] [phone] Nov, Bipolar disorder F31.9 [place] [address] [place] [id number] [address] [place] [phone] 04 Nov, 2018 [facility] ; Polyneuropathy associated [...] unspecified morphology N40.1 and Essential hypertension I10 [place] [address] [address] [place] [id number] [address] [place] [phone] Oct, Chronic pain G89.29 [place] [id number] [place] [phone] 18 Oct, 2018 Diabetes E11.9 [place] [address] [address] [place] [id number] [address] [place] [phone] Oct, Bipolar I disorder, most rec ent episode (or current) mixed, moderate F31.62 and Mild cognitive impairment G31.84 [place] [id number] [place] [phone] Oct, Bipolar I disorder, most rec ent episode (or current) mixed, moderate F31.62 and Mild cognitive impairment G31.84 [place] [address] [address] [place] [id number] [address] [place] [phone] Sep, Bipolar I disorder, most rec ent episode (or current) mixed, moderate F31.62 and Mild cognitive impairment G31.84 [place] [address] [place] [id number] [address] [place] [phone] Sep, [facility] [address] [id number] [address] [place] [phone] Sep, Diabetes E11.9 ; Hypoxia R09 .02 ; Hyperglycemia R73.9 ; Therapeutic drug monitoring Z51.81 ; BMI 50.0-59.9, adult Z68.43 and Skin cancer C44.90 [place] [address] [address] [facility] [id number] [address] [place] [phone] Sep, Chronic pain G89.29 [place] [address] [id number] [address] [place] [phone] Sep, Bipolar I disorder, most rec ent episode (or current) mixed, moderate F31.62 [place] [address] [facility] [id number] [address] [place] [phone] Sep, [place] [address] [facility] [id number] [address] [place] [phone] Sep, [place] [address] [facility] [id number] [address] [place] [address] Aug, Chronic pain G89.29 [place] [address] [id number] [address] [place] [phone] Aug, Bipolar I disorder, most rec ent episode (or current) mixed, moderate F31.62 [place] [address] [facility] [id number] [address] [place] [phone] Aug, Bipolar I disorder, most rec ent episode (or current) mixed, moderate F31.62 and Mild cognitive impairment G31.84 [place] [address] [id number] [address] [place] [phone] Jul, [place] [address] [facility] [id number] [address] [place] [phone] Jul, Chronic pain G89.29 [facility] [address] [id number] [address] [place] [phone] Jul, Bipolar I disorder, most rec ent episode (or current) mixed, moderate F31.62 and Mild cognitive impairment G31.84 [facility] [address] [facility] [id number] [address] [place] [phone] Jul, Bipolar I disorder, most rec ent episode (or current) mixed, moderate F31.62 and MCI (mild cognitive impairment) G31.84 [facility] [address] [facility] [id number] [address] [place] [phone] Jul, [facility] [address] [facility] [id number] [address] [place] [phone] Jul, [place] [address] [facility] [id number] [address] [place] [phone] Jul, Bipolar I disorder, most rec ent episode (or current) mixed, moderate F31.62 [place] [address] [facility] [id number] [address] [place] [phone] Jul, Chronic pain G89.29 [place] [address] [facility] [id number] [address] [place] [phone] Jun, Bipolar I disorder, most rec ent episode (or current) mixed, moderate F31.62 [place] [address] [address] [place] [id number] [address] [place] [phone] Jun, Pre-procedure lab exam Z01.8 12 [place] [address] [place] [id number] [address] [place] [phone] Jun, [facility] [address] [id number] [place] [id number] Jun, [place] [address] [facility] [id number] [address] [place] [phone] Jun, [place] [address] [place] [id number] [address] [place] [phone] Jun, Forgetfulness R68.89 ; Pre-s yncope R55 ; Localized edema R60.0 ; Other iron deficiency anemia D50.8 and BMI 50.0-59.9, adult Z68.43 [place] [address] [place] [id number] [address] [place] [id number] 05 Jun, 2018 Chronic pain G89.29 [facility] [address] [place] [id number] [address] [place] [phone] 05 Jun, 2018 Chronic pain G89.29 [facility] [address] [place] [id number] [address] [place] [phone] Jun, Bipolar I disorder, most rec ent episode (or current) mixed, moderate F31.62 [facility] [address] [place] [id number] [address] [place] [phone] May, Chronic pain G89.29 [facility] [address] [address] Apr, [place] [address] [place] [id number] [place] [address] Apr, Chronic pain G89.29 [place] [address] [address] Apr, Primary osteoarthritis of ri t knee M17.11 [place] [address] [address] Mar, [place] [address] [address] Mar, BMI 50.0-59.9, adult Z68.43 and Bipolar disorder, in partial remission, most recent episode depressed F31.75 [place] [address] [place] [id number] [place] [phone] Mar, Diabetes E11.9 ; Pure hyperc holesterolemia E78.00 ; Essential hypertension I10 ; Nausea with vomiting, unspecified R11.2 and Headache, unspecified headache type R51 [place] [address] [place] [id number] [place] [phone] Mar, Bipolar I disorder, most rec ent episode (or current) mixed, moderate F31.62 [place] [address] [address] Mar, Bipolar I disorder, most rec ent episode (or current) mixed, moderate F31.62 [facility] [address] [facility] [id number] [address] [place] [phone] Mar, Chronic pain G89.29 [facility] [address] [facility] [id number] [address] [place] [phone] Mar, Bipolar I disorder, most rec ent episode (or current) mixed, moderate F31.62 [place] [address] [facility] [id number] [address] [place] [phone] Feb, Bipolar I disorder, most rec ent episode (or current) mixed, moderate F31.62 [place] [address] [place] [id number] [address] [place] [id number] Feb, Chronic pain G89.29 [place] [address] [place] [id number] [address] [place] [address] Feb, Decubitus ulcer of right josselin t, stage 3 L89.893 and BMI 50.0-59.9, adult Z68.43 [place] [address] [facility] [id number] [address] [place] [phone] Feb, Bipolar I disorder, most rec ent episode (or current) mixed, moderate F31.62 [place] [address] [facility] [id number] [address] [place] [phone] Feb, [facility] [address] [facility] [id number] [address] [place] [phone] January, [facility] [address] [facility] [id number] [address] [place] [address] January, Chronic pain G89.29 [facility] [address] [facility] [id number] [address] [place] [phone] January, Bipolar I disorder, most rec ent episode (or current) mixed, moderate F31.62 [place] [address] [facility] [id number] [address] [place] [id number] January, Bipolar I disorder, most rec ent episode (or current) mixed, moderate F31.62 [place] [address] [facility] [id number] [address] [place] [id number] Dec, Bipolar I disorder, most rec ent episode (or current) mixed, moderate F31.62 and BMI 50.0-59.9, adult Z68.43 [place] [address] [place] [id number] [address] [place] [id number] Dec, Bipolar I disorder, most rec ent episode (or current) mixed, moderate F31.62 [place] [address] [facility] [id number] [address] [place] [address] Dec, Chronic pain G89.29 [place] [address] [facility] [id number] [address] [place] [phone] Dec, DM neuro manif type II E11.4 9 ; Right flank pain R10.9 ; 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 ; Encounter for medication monitoring Z51.81 and BMI 50.0-59.9, adult Z68.43 [place] [address] [place] [id number] [address] [place] [phone] Dec, Bipolar I disorder, most rec ent episode (or current) mixed, moderate F31.62 [place] [address] [place] [id number] [address] [place] [phone] Nov, Bipolar I disorder, most rec ent episode (or current) mixed, moderate F31.62 [place] [address] [facility] [id number] [address] [place] [address] Nov, Chronic pain G89.29 [place] [address] [place] [id number] [address] [place] [id number] Nov, Bipolar I disorder, most rec ent episode (or current) mixed, moderate F31.62 [place] [address] [facility] [id number] [address] [place] [phone] Nov, Hypokalemia E87.6 [place] [address] [place] [id number] [address] [place] [address] Nov, Bipolar I disorder, most rec ent episode (or current) mixed, moderate F31.62 [place] [address] [place] [id number] [place] [address] Oct, Chronic pain G89.29 [place] [address] [address] Oct, BMI 50.0-59.9, adult Z68.43 and Bipolar I disorder, most recent episode (or current) mixed, moderate F31.62 [place] [address] [address] Oct, Bipolar I disorder, most rec ent episode (or current) mixed, moderate F31.62 [place] [address] [address] Oct, [place] [address] [address] Oct, Hypokalemia E87.6 [place] [address] [address] Oct, DM neuro manif type II E11.4 9 [place] [address] [address] Oct, Bipolar I disorder, most rec ent episode (or current) mixed, moderate F31.62 [place] [address] [place] [id number] [address] [place] [address] Oct, Bipolar I disorder, most rec ent episode (or current) mixed, moderate F31.62 [place] [address] [place] [id number] [address] [place] [address] 14 Oct, 2017 Hyperkalemia E87.5 ; Falling R29.6 ; BMI 50.0-59.9, adult Z68.43 and Acute left ankle pain M25.572 [place] [address] [place] [id number] [address] [place] [phone] 08 Oct, 2017 DM neuro manif type II E11.4 9 [place] [id number] [place] [phone] Oct, [place] [address] [place] [id number] [place] [address] Sep, Chronic pain G89.29 [place] [address] [address] Sep, [place] [address] [address] Sep, Bilateral primary osteoarthr itis of knee M17.0 [place] [address] [address] Sep, Generalized edema R60.1 [place] [address] [address] 16 Sep, 2017 Bipolar I disorder, most rec ent episode (or current) mixed, moderate F31.62 [place] [address] [address] 15 Sep, 2017 Hypoxia R09.02 ; Other hyper volemia E87.79 ; Diabetes E11.9 ; Retinal edema H35.81 ; Hypokalemia E87.6 ; 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 ; Anemia of chronic illness D63.8 and BMI 50.0- 59.9, adult Z68.43 [place] [address] [place] [id number] [address] [place] [address] Sep, [address] [address] Sep, Bipolar I disorder, most rec ent episode (or current) mixed, moderate F31.62 [place] [address] [address] Aug, Chronic pain G89.29 [facility] [address] [facility] [id number] [address] [place] [address] Aug, Generalized edema R60.1 [facility] [address] [facility] [id number] [address] [place] [phone] Aug, [facility] [address] [facility] [id number] [address] [place] [phone] Aug, [facility] [address] [facility] [id number] [address] [place] [phone] 14 Aug, 2017 Bipolar I disorder, most rec ent episode (or current) mixed, moderate F31.62 [place] [address] [facility] [id number] [address] [place] [address] Aug, Bipolar I disorder, most rec ent episode (or current) mixed, moderate F31.62 [place] [address] [facility] [id number] [address] [place] [address] 04 Aug, 2017 Chronic pain G89.29 [facility] [address] [facility] [id number] [address] [place] [phone] 30 Jul, 2017 Bipolar I disorder, most rec ent episode (or current) mixed, moderate F31.62 [facility] [address] [facility] [id number] [address] [place] [address] Jul, Bipolar I disorder, most rec ent episode (or current) mixed, moderate F31.62 and BMI 60.0-69.9, adult Z68.44 [facility] [address] [facility] [id number] [address] [place] [id number] 16 Jul, 2017 Bipolar I disorder, most rec ent episode (or current) mixed, moderate F31.62 [place] [address] [facility] [id number] [address] [place] [id number] 06 Jul, 2017 Chronic pain G89.29 [facility] [address] [facility] [id number] [address] [place] [phone] 02 Jul, 2017 Bipolar I disorder, most rec ent episode (or current) mixed, moderate F31.62 [facility] [address] [id number] [address] [place] [phone] 18 Jun, 2017 Polyneuropathy associated wi th underlying disease G63 and Diabetes E11.9 [facility] [address] [id number] [address] [place] [phone] 16 Jun, 2017 Bipolar I disorder, most rec ent episode (or current) mixed, moderate F31.62 [facility] [address] [id number] [address] [place] [address] Jun, Chronic pain G89.29 [facility] [address] [id number] [address] [place] [phone] May, Bipolar I disorder, most rec ent episode (or current) mixed, moderate F31.62 [facility] [address] [facility] [id number] [address] [place] [phone] 21 May, 2017 Bipolar I disorder, most rec ent episode (or current) mixed, moderate F31.62 [facility] [address] [id number] [address] [place] [phone] 20 May, 2017 Diabetic polyneuropathy asso ciated with type 2 diabetes mellitus E11.42 [facility] [address] [id number] [address] [place] [id number] 18 May, 2017 Bipolar I disorder, most rec ent episode (or current) mixed, moderate F31.62 [facility] [address] [facility] [id number] [address] [place] [phone] 13 May, 2017 Bipolar I disorder, most rec ent episode (or current) mixed, moderate F31.62 [facility] [address] [id number] [address] [place] [address] May, Chronic pain G89.29 [facility] [address] [facility] [id number] [address] [place] [address] Apr, Bipolar I disorder, most rec ent episode (or current) mixed, moderate F31.62 [facility] [address] [facility] [id number] [address] [place] [phone] Apr, [facility] [address] [id number] [address] [place] [address] Apr, Chronic pain G89.29 and DM n euro manif type II E11.49 [facility] [address] [facility] [id number] [address] [place] [phone] Apr, [facility] [address] [facility] [id number] [address] [place] [phone] Apr, Bipolar I disorder, most rec ent episode (or current) mixed, moderate F31.62 [facility] [address] [facility] [id number] [address] [place] [address] Apr, Chronic pain G89.29 [facility] [address] [facility] [id number] [address] [place] [id number] Apr, Iliotibial band syndrome, le ft M76.32 [facility] [address] [facility] [id number] [address] [place] [id number] Apr, Bipolar I disorder, most rec ent episode (or current) mixed, moderate F31.62 [facility] [address] [facility] [id number] [address] [place] [phone] Mar, Bipolar I disorder, most rec ent episode (or current) mixed, moderate F31.62 [facility] [address] [facility] [id number] [address] [place] [id number] Mar, Bipolar I disorder, most rec ent episode (or current) mixed, moderate F31.62 [facility] [address] [facility] [id number] [address] [place] [phone] Mar, [facility] [address] [facility] [id number] [address] [place] [id number] Mar, Bipolar I disorder, most rec ent episode (or current) mixed, moderate F31.62 [facility] [address] [facility] [id number] [address] [place] [phone] Mar, Chronic pain G89.29 [facility] [address] [id number] [address] [place] [id number] Mar, Bipolar I disorder, most rec ent episode (or current) mixed, moderate F31.62 [place] [facility] [address] [id number] [address] [place] [phone] Mar, Bipolar I disorder, most rec ent episode (or current) mixed, moderate F31.62 [facility] [address] [id number] [address] [place] [phone] Mar, Acute pain of left knee M25. 562 ; Left hip pain M25.552 ; Generalized edema R60.1 and Tongue swelling R22.0 [facility] [address] [id number] [address] [place] [phone] Mar, [facility] [address] [id number] [address] [place] [phone] Feb, Chronic pain G89.29 [facility] [address] [id number] [address] [place] [phone] Feb, Diabetes E11.9 [facility] [address] [id number] [address] [place] [phone] January, Chronic pain G89.29 [facility] [address] [facility] [id number] [address] [place] [phone] January, [facility] [address] [id number] [address] [place] [phone] January, Bipolar I disorder, most rec ent episode (or current) mixed, moderate F31.62 [facility] [address] [id number] [address] [place] [phone] Dec, Bipolar I disorder, most rec ent episode (or current) mixed, moderate F31.62 [facility] [address] [facility] [id number] [address] [place] [phone] Dec, Chronic pain G89.29 [facility] [address] [id number] [address] [place] [phone] Dec, Bipolar I disorder, most rec ent episode (or current) mixed, moderate F31.62 [facility] [address] [place] [id number] [address] [place] [id number] Dec, Diabetes E11.9 ; Essential h ypertension I10 ; Chronic pain G89.29 and Morbid obesity E66.01 [facility] [address] [place] [id number] [address] [place] [phone] Dec, [facility] [address] [facility] [id number] [address] [place] [id number] Dec, Bipolar I disorder, most rec ent episode (or current) mixed, moderate F31.62 [facility] [address] [place] [id number] [address] [place] [phone] Dec, Bipolar I disorder, most rec ent episode (or current) mixed, moderate F31.62 [facility] [address] [place] [id number] [address] [place] [phone] Nov, Chronic pain G89.29 [facility] [address] [place] [id number] [address] [place] [phone] Nov, Bipolar I disorder, most rec ent episode (or current) mixed, moderate F31.62 [facility] [address] [place] [id number] [address] [place] [phone] Nov, [facility] [address] [facility] [id number] [address] [place] [id number] Nov, Bipolar I disorder, most rec ent episode (or current) mixed, moderate F31.62 [facility] [address] [place] [id number] [address] [place] [phone] Nov, Bipolar I disorder, most rec ent episode (or current) mixed, moderate F31.62 [facility] [address] [place] [id number] [address] [place] [phone] Nov, [facility] [address] [place] [id number] [address] [place] [phone] Nov, [facility] [address] [facility] [id number] [address] [place] [phone] Nov, [facility] [address] [facility] [id number] [address] [place] [phone] Oct, Chronic pain G89.29 [facility] [address] [facility] [id number] [address] [place] [phone] Oct, Bipolar I disorder, most rec ent episode (or current) mixed, moderate F31.62 [facility] [address] [facility] [id number] [address] [place] [id number] Oct, [facility] [address] [facility] [id number] [address] [place] [id number] Oct, Chronic pain G89.29 ; Diabet es E11.9 ; Anxiety F41.9 and 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 [facility] [address] [facility] [id number] [address] [place] [phone] Oct, [facility] [address] [facility] [id number] [address] [place] [phone] Oct, Diabetes E11.9 [facility] [address] [facility] [id number] [address] [place] [id number] Oct, Bipolar I disorder, most rec ent episode (or current) mixed, moderate F31.62 [facility] [address] [facility] [id number] [address] [place] [phone] Sep, Chronic pain G89.29 [facility] [address] [facility] [id number] [address] [place] [phone] Sep, Chronic pain G89.29 [facility] [address] [facility] [id number] [address] [place] [id number] Aug, Chronic pain G89.29 [facility] [address] [facility] [id number] [address] [place] [phone] Jul, [facility] [address] [facility] [id number] [address] [place] [id number] Jul, Diabetes E11.9 [facility] [address] [facility] [id number] [address] [place] [phone] Jul, Chronic pain G89.29 [facility] [address] [facility] [id number] [address] [place] [phone] Jul, Bipolar I disorder, most rec ent episode (or current) mixed, moderate F31.62 [facility] [address] [facility] [id number] [address] [place] [phone] Jun, Bipolar I disorder, most rec ent episode (or current) mixed, moderate F31.62 [place] [address] [facility] [id number] [address] [place] [phone] Jun, [facility] [address] [facility] [id number] [address] [place] [phone] Jun, Bipolar I disorder, most rec ent episode (or current) mixed, moderate F31.62 [place] [id number] [facility] [id number] [address] [place] [phone] 30 May, 2016 Insomnia, unspecified type G 47.00 [facility] [address] [facility] [id number] [address] [place] [id number] May, Bipolar I disorder, most rec ent episode (or current) mixed, moderate F31.62 [facility] [address] [facility] [id number] [address] [place] [phone] 14 May, 2016 [facility] [address] [facility] [id number] [address] [place] [id number] 08 May, 2016 Bipolar I disorder, most rec ent episode (or current) mixed, moderate F31.62 [facility] [address] [facility] [id number] [address] [place] [id number] 06 May, 2016 Diabetes E11.9 and Essential hypertension I10 [facility] [address] [facility] [id number] [address] [place] [phone] Apr, Chronic pain G89.29 [facility] [address] [id number] [address] [place] [phone] Apr, Bipolar I disorder, most rec ent episode (or current) mixed, moderate F31.62 [facility] [address] [facility] [id number] [address] [place] [phone] Apr, [facility] [address] [facility] [id number] [address] [place] [phone] Apr, [facility] [address] [facility] [id number] [address] [place] [phone] Mar, Chronic pain G89.29 ; Headac he, unspecified headache type R51 ; Neuropathy G62.9 ; Pain of right hip joint M25.551 and Essential hypertension I10 [place] [address] [facility] [id number] [address] [place] [phone] Mar, Chronic pain G89.29 [facility] [address] [facility] [id number] [address] [place] [phone] Mar, Bipolar I disorder, most rec ent episode (or current) mixed, moderate F31.62 [place] [address] [facility] [id number] [address] [place] [id number] Feb, Bipolar I disorder, most rec ent episode (or current) mixed, moderate F31.62 and Insomnia, unspecified type G47.00 [place] [address] [facility] [id number] [address] [place] [phone] Feb, Chronic pain G89.29 [facility] [address] [facility] [id number] [address] [place] [id number] Feb, Bipolar I disorder, most rec ent episode (or current) mixed, moderate F31.62 [place] [address] [facility] [id number] [address] [place] [phone] January, Bipolar I disorder, most rec ent episode (or current) mixed, moderate F31.62 [place] [address] [facility] [id number] [address] [place] [phone] January, Chronic pain G89.29 [facility] [address] [facility] [id number] [address] [place] [phone] January, Chronic pain G89.29 and Esse ntial hypertension I10 [facility] [address] [facility] [id number] [address] [place] [id number] January, Bipolar I disorder, most rec ent episode (or current) mixed, moderate F31.62 [facility] [address] [facility] [id number] [address] [place] [phone] Dec, [facility] [address] [facility] [id number] [address] [place] [phone] Dec, [facility] [address] [place] [id number] [address] [place] [phone] Dec, [facility] [address] [facility] [id number] [address] [place] [phone] Dec, [facility] [address] [facility] [id number] [address] [place] [phone] Nov, Reactive airway disease J45. 909 [facility] [address] [place] [id number] [address] [place] [phone] Nov, [facility] [address] [facility] [id number] [address] [place] [phone] Nov, [facility] [address] [facility] [id number] [address] [place] [id number] Nov, [facility] [address] [facility] [id number] [address] [place] [phone] Nov, [facility] [address] [place] [id number] [address] [place] [phone] Nov, Onychomycosis B35.1 ; Hammer toe M20.40 ; Harvey or callus L84 and DM neuro manif type II E11.49 [facility] [address] [id number] Nov, Chronic pain G89.29 ; Leukoc ytosis D72.829 and Diabetes E11.9 [place] [address] [id number] Nov, [place] [address] [id number] Oct, Bronchitis J40 [place] [address] [id number] Oct, [place] [address] [id number] Oct, [place] [address] [id number] Oct, Mastoiditis, unspecified lat erality H70.90 and Type 2 diabetes mellitus with complication E11.8 [place] [address] [id number] Sep, [place] [address] [id number] Sep, Dysuria R30.0 ; Cough R05 ; Benign prostatic hyperplasia with lower urinary tract symptoms, unspecified morphology N40.1 ; Hypokalemia E87.6 and Eustachian tube dysfunction, unspecified laterality H69.80 [place] [address] [id number] Sep, Moderate mixed bipolar I dis order F31.62 [place] [address] [id number] Sep, Hypokalemia E87.6 [place] [address] [id number] Sep, [place] [address] [id number] Sep, Upper respiratory tract infe ction, unspecified type J06.9 [facility] [address] [id number] [address] [place] [phone] Aug, [facility] [address] [id number] [address] [place] [phone] Aug, Dysuria R30.0 [facility] [address] [id number] [address] [place] [phone] Aug, [facility] [address] [id number] [address] [place] [phone] Jul, [facility] [address] [id number] [address] [place] [phone] Jul, [facility] [address] [id number] [address] [place] [phone] Jul, [facility] [address] [id number] [address] [place] [phone] Jul, [facility] [address] [id number] [address] [place] [phone] Jun, [facility] [address] [id number] [address] [place] [phone] Jun, [facility] [address] [id number] [address] [place] [phone] Jun, [facility] [address] [facility] [id number] [address] [place] [phone] May, [facility] [address] [id number] [address] [place] [phone] May, Bipolar I disorder, most rec ent episode (or current) mixed, moderate 296.62 [facility] [address] [id number] [address] [place] [id number] 16 May, 2015 [facility] [address] [facility] [id number] [address] [place] [id number] May, Bipolar I disorder, most rec ent episode (or current) mixed, moderate 296.62 and Major depressive disorder, recurrent episode, severe, specified as with psychotic behavior 296.34 [facility] [address] [id number] [address] [place] [phone] May, Bipolar I disorder, most rec ent episode (or current) mixed, moderate 296.62 [facility] [address] [id number] [address] [place] [phone] May, [facility] [address] [id number] [address] [place] [phone] Apr, [facility] [address] [id number] [address] [place] [id number] Apr, [facility] [address] [facility] [id number] [address] [place] [id number] Apr, Unspecified disorder of kidn ey and ureter 593.9 and Diabetes mellitus type 2, uncontrolled 250.02 [facility] [address] [facility] [id number] [address] [place] [phone] Apr, [facility] [address] [id number] [address] [place] [phone] Apr, [facility] [address] [facility] [id number] [address] [place] [phone] Apr, [facility] [address] [facility] [id number] [address] [place] [phone] Apr, [facility] [address] [id number] [address] [place] [phone] Apr, Diabetes mellitus type II, u ncontrolled 250.02 [facility] [address] [id number] [address] [place] [phone] Apr, [facility] [address] [facility] [id number] [address] [place] [phone] Mar, [facility] [address] [facility] [id number] [address] [place] [phone] Mar, [facility] [address] [place] [id number] [address] [place] [phone] Mar, [facility] [address] [place] [id number] [address] [place] [phone] Mar, Major depressive disorder, r ecurrent episode, severe, specified as with psychotic behavior 296.34 and Bipolar I disorder, most recent episode (or current) mixed, moderate 296.62 [facility] [address] [place] [id number] [address] [place] [address] Mar, Diabetes 250.00 ; Anuria 788 .5 ; Nausea and vomiting 787.01 and Diarrhea 787.91 [facility] [address] [place] [id number] [address] [place] [phone] Mar, Diabetes 250.00 [facility] [address] [place] [id number] [place] [address] Mar, [facility] [address] [id number] Mar, Diabetes 250.00 [facility] [address] [place] [id number] [address] [place] [id number] Mar, [facility] [address] [id number] Mar, [facility] [address] [place] [id number] [address] [place] [phone] Mar, [facility] [address] [place] [id number] [address] [place] [phone] Mar, [facility] [address] [place] [id number] [address] [place] [phone] Mar, Bipolar I disorder, most rec ent episode (or current) mixed, moderate 296.62 and Major depressive disorder, recurrent episode, severe, specified as with psychotic behavior 296.34 [facility] [address] [place] [id number] [address] [place] [address] Mar, Magnesium deficiency 275.2 ; Hypokalemia 276.8 ; Nausea & vomiting 787.01 and Diabetes mellitus type 2, uncontrolled 250.02 [facility] [address] [id number] Feb, [facility] [address] [id number] Feb, Bipolar I disorder, most rec ent episode (or current) mixed, moderate 296.62 [place] [address] [id number] Feb, Nausea and vomiting 787.01 ; Left elbow pain 719.42 ; Anuria 788.5 and Diabetes 250.00 [place] [address] [id number] Feb, [place] [address] [id number] Feb, Hypopotassemia 276.8 and Hyp okalemia 276.8 [place] [address] [id number] Feb, Hypopotassemia 276.8 and Hyp okalemia 276.8 [place] [address] [id number] Feb, Seborrheic keratoses 702.19 [place] [address] [id number] Feb, Hypopotassemia 276.8 and Low magnesium levels 275.2 [place] [address] [id number] January, [facility] [address] [address] January, [place] [address] [id number] January, [facility] [address] [id number] January, Scalp lesion 709.9 [facility] [address] [id number] [address] [place] [phone] January, [facility] [address] [id number] [address] [place] [phone] Dec, Tear of medial cartilage or meniscus of knee, current 836.0 and Chondromalacia 733.92 [facility] [address] [id number] [address] [place] [phone] Dec, [facility] [address] [id number] [address] [place] [phone] Dec, [facility] [address] [id number] [address] [place] [id number] Dec, Squamous cell carcinoma, 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 [facility] [address] [id number] [address] [place] [phone] Dec, [facility] [address] [id number] [address] [place] [phone] Dec, [facility] [address] [id number] [address] [place] [phone] Nov, [facility] [address] [id number] [address] [place] [phone] Nov, [facility] [address] [id number] [address] [place] [phone] Nov, [facility] [address] [id number] [address] [place] [phone] Nov, [facility] [address] [id number] [address] [place] [phone] Nov, [facility] [address] [id number] [address] [place] [phone] Nov, [facility] [address] [id number] [address] [place] [phone] Nov, [facility] [address] [id number] [address] [place] [phone] Nov, [facility] [address] [id number] [address] [place] [address], [place] [address] Nov, [facility] [address] [id number] [address] [place] [address], [place] [address] Nov, [facility] [address] [id number] [address] [place] [address], [place] [address] Nov, [facility] [address] [id number] [address] [place] [address], [place] [address] Nov, [facility] [address] [id number] [address] [place] [address], [place] [address] Oct, 2014 [facility] [address] [id number] [address] [place] [address], [place] [address] Oct, 2014 [facility] [address] [id number] [address] [place] [address], [place] [address] Oct, 2014 [facility] [address] [id number] [address] [place] [phone] Oct, 2014 [facility] [address] [id number] [address] [place] [address], [place] [address] Oct, 2014 [facility] [address] [id number] [address] [place] [address], [place] [address] Oct, 2014 [facility] [address] [id number] [address] [place] [address], [place] [address] Oct, 2014 [facility] [address] [id number] [address] [place] [id number] Oct, 2014 [facility] [address] [id number] [address] [place] [id number] Oct, [facility] [address] [id number] [address] [place] [id number] Sep, [facility] [address] [id number] [address] [place] [id number] Sep, [facility] [address] [id number] [address] [place] [address], [place] [address] Sep, [facility] [address] [id number] [address] [place] [address], [place] [address] Sep, [facility] [address] [id number] [address] [place] [address], [place] [address] Sep, [facility] [address] [id number] [address] [place] [address], [place] [address] Sep, [facility] [address] [id number] [address] [place] [address], [place] [address] Sep, [facility] [address] [id number] [address] [place] [address], [place] [address] Sep, [facility] [address] [id number] [address] [place] [address], [place] [address] Sep, [facility] [address] [id number] [address] [place] [address], [place] [address] Sep, [facility] [address] [id number] [address] [place] [address], [place] [address] Sep, [facility] [address] [id number] [address] [place] [address], [place] [address] Sep, [facility] [address] [id number] [address] [place] [address], [place] [address] Sep, [facility] [address] [id number] [address] [place] [address], [place] [address] Sep, [facility] [address] [id number] [address] [place] [address], [place] [address] Sep, [facility] [address] [id number] [address] [place] [address], [place] [address] Sep, [facility] [facility] [address] [id number] [address] [place] [address], [place] [address] Aug, [facility] [address] [id number] [address] [place] [address], [place] [address] Aug, [facility] [address] [id number] [facility] [place] [address] Aug, [facility] [address] [id number] [address] [place] [address], [place] [address] Aug, [facility] [address] [id number] [facility] [place] [address] Aug, [facility] [address] [id number] [address] [place] [address], [place] [address] Aug, [facility] [address] [id number] [facility] [place] [address] Aug, [facility] [address] [id number] [address] [place] [address], [place] [address] Aug, [facility] [address] [id number] [address] [place] [address], [place] [address] Aug, [facility] [address] [id number] [address] [place] [address], [place] [address] Aug, [facility] [address] [id number] [address] [place] [address], [place] [address] Aug, [facility] [address] [place] [id number] Aug, [facility] [address] [id number] [address] [place] [address], [place] [address] Aug, [facility] [address] [id number] [address] [place] [address], [place] [address] Aug, [facility] [address] [id number] [address] [place] [address], [place] [address] Aug, [facility] [address] [id number] [address] [place] [address], [place] [address] Aug, [facility] [address] [id number] [address] [place] [address], [place] [address] Aug, [facility] [address] [id number] [address] [place] [address], [place] [address] Aug, [facility] [address] [id number] [address] [place] [address], [place] [address] 08 Aug, 2014 [facility] [address] [id number] [address] [place] [address], [place] [address] Aug, [facility] [address] [id number] [address] [place] [address], [place] [address] Aug, [facility] [address] [id number] [address] [place] [address], [place] [address] Aug, [facility] [address] [id number] [address] [place] [address], [place] [address] Aug, [facility] [address] [id number] [address] [place] [address], [place] [address] Aug, [facility] [address] [id number] [address] [place] [address], [place] [address] Aug, [facility] [address] [id number] [address] [place] [address], [place] [address] Aug, [facility] [address] [id number] [address] [place] [address], [place] [address] Aug, [facility] [address] [id number] [address] [place] [address], [place] [address] Aug, [facility] [address] [id number] [address] [place] [address], [place] [address] Aug, [facility] [address] [id number] [address] [place] [address], [place] [address] Aug, [facility] [address] [id number] [address] [place] [address], [place] [address] Jul, [facility] [address] [id number] [address] [place] [address], [place] [address] Jul, [facility] [address] [id number] [address] [place] [address], [place] [address] Jul, [facility] [address] [id number] [address] [place] [address], [place] [address] Jul, [facility] [address] [id number] [address] [place] [address], [place] [address] Jul, [facility] [address] [id number] [address] [place] [address], [place] [address] Jul, [facility] [address] [id number] [address] [place] [address], [place] [address] Jul, [facility] [address] [id number] [address] [place] [address], [place] [address] Jul, [facility] [address] [id number] [address] [place] [address], [place] [address] Jul, [facility] [address] [id number] [address] [place] [address], [place] [address] Jul, [facility] [address] [id number] [address] [place] [address], [place] [address] Jun, [facility] [address] [id number] [address] [place] [address], [place] [address] Jun, [facility] [address] [id number] [address] [place] [address], [place] [address] Jun, [facility] [address] [id number] [address] [place] [address], [place] [address] Jun, [facility] [address] [id number] [address] [place] [address], [place] [address] Jun, [facility] [address] [id number] [address] [place] [address], [place] [address] Jun, [facility] [address] [id number] [address] [place] [address], [place] [address] Jun, [facility] [address] [id number] [address] [place] [address], [place] [address] Jun, [facility] [address] [id number] [address] [place] [address], [place] [address] Jun, [facility] [address] [id number] [address] [place] [address], [place] [address] Jun, [facility] [address] [id number] [address] [place] [address], [place] [address] 29 May, 2013 [facility] [address] [id number] [address] [place] [address], [place] [address] 29 Sep, 2013 [facility] [address] [id number] [address] [place] [address], [place] [address] 26 Sep, 2013 [facility] [address] [id number] [address] [place] [address], [place] [address] 26 Sep, 2013 [facility] [address] [id number] [address] [place] [address], [place] [address] 17 May, 2013 [facility] [address] [id number] [address] [place] [address], [place] [address] 17 May, 2013 [facility] [address] [id number] [address] [place] [address], [place] [address] 15 May, 2013 [facility] [address] [id number] [address] [place] [address], [place] [address] 15 May, 2013 [facility] [address] [id number] [address] [place] [address], [place] [address] 15 May, 2013 [facility] [address] [id number] [address] [place] [address], [place] [address] 15 May, 2013 [facility] [address] [id number] [address] [place] [address] 10 Sep, 2013 [facility] [address] [id number] [address] [place] [address], [place] [address] 10 May, 2013 [facility] [address] [id number] [address] [place] [address], [place] [address] 09 Sep, 2013 [facility] [address] [id number] [address] [place] [address], [place] [address] 09 Sep, 2013 [facility] [address] [id number] [facility] [address] May, [facility] [address] [id number] [address] [place] [address], [place] [address] May, [facility] [address] [id number] [facility] [place] [address] Apr, [facility] [address] [id number] [address] [place] [address], [place] [address] Apr, [facility] [address] [id number] [address] [place] [address], [place] [address] Apr, [facility] [address] [id number] [address] [place] [address], [place] [address] Apr, [facility] [address] [id number] [address] [place] [address], [place] [address] Apr, [facility] [address] [id number] [address] [place] [address], [place] [address] Apr, [facility] [address] [id number] [address] [place] [address], [place] [address] Apr, [facility] [address] [id number] [address] [place] [address], [place] [address] Apr, [facility] [address] [id number] [address] [place] [address], [place] [address] Apr, [facility] [address] [id number] [address] [place] [address], [place] [address] Apr, [facility] [address] [id number] [address] [place] [address], [place] [address] Apr, [facility] [address] [id number] [address] [place] [address], [place] [address] Apr, [facility] [address] [id number] [address] [place] [address], [place] [address] Apr, [facility] [address] [id number] [address] [place] [address], [place] [address] Apr, [facility] [address] [id number] [address] [place] [address], [place] [address] Apr, [facility] [address] [id number] [address] [place] [address], [place] [address] Mar, [facility] [address] [id number] [address] [place] [address], [place] [address] Mar, [facility] [address] [id number] [address] [place] [address], [place] [address] Mar, [facility] [address] [id number] [address] [place] [address], [place] [address] Mar, [facility] [address] [id number] [address] [place] [address], [place] [address] Mar, [facility] [address] [id number] [address] [place] [address], [place] [address] Mar, [facility] [address] [id number] [address] [place] [address], [place] [address] Mar, [facility] [address] [id number] [address] [place] [address], [place] [address] Mar, [facility] [address] [id number] [address] [place] [address], [place] [address] Mar, [facility] [address] [id number] [address] [place] [address], [place] [address] Mar, [facility] [address] [id number] [address] [place] [address], [place] [address] Mar, [facility] [address] [id number] [address] [place] [address], [place] [address] Mar, [facility] [address] [id number] [address] [place] [address], [place] [address] Mar, [facility] [address] [id number] [address] [place] [address], [place] [address] Mar, [facility] [address] [id number] [address] [place] [address], [place] [address] Mar, [facility] [address] [id number] [facility] [place] [address] Mar, [facility] [address] [id number] [address] [place] [address], [place] [address] Mar, [facility] [address] [id number] [address] [place] [address], [place] [address] Mar, [facility] [address] [id number] [address] [place] [address], [place] [address] Feb, [facility] [address] [id number] [address] [place] [address], [place] [address] Feb, [facility] [address] [id number] [address] [place] [address], [place] [address] Feb, [facility] [address] [id number] [address] [place] [address], [place] [address] Feb, [facility] [address] [id number] [address] [place] [address], [place] [address] Feb, [facility] [address] [id number] [address] [place] [address], [place] [address] Feb, [facility] [address] [id number] [address] [place] [address], [place] [address] Feb, [facility] [address] [id number] [address] [place] [address], [place] [address] Feb, [facility] [address] [id number] [address] [place] [address], [place] [address] Feb, [facility] [address] [id number] [address] [place] [address], [place] [address] Feb, [facility] [address] [id number] [address] [place] [address], [place] [address] Feb, [facility] [address] [id number] [address] [place] [address], [place] [address] Feb, [facility] [address] [id number] [facility] [place] [address] Feb, [facility] [address] [id number] [facility] [place] [address] Feb, [facility] [address] [id number] [facility] [place] [address] January, [facility] [address] [id number] [facility] [place] [address] January, [facility] [address] [id number] [facility] [place] [address] January, [facility] [address] [id number] [address] [place] [address], [place] [address] January, [facility] [address] [id number] [address] [place] [address], [place] [address] January, [facility] [address] [id number] [address] [place] [address], [place] [address] January, [facility] [address] [id number] [address] [place] [address], [place] [address] January, [facility] [address] [id number] [address] [place] [address], [place] [address] January, [facility] [address] [id number] [address] [place] [address], [place] [address] January, [facility] [address] [id number] [address] [place] [address], [place] [address] January, [facility] [address] [id number] [address] [place] [address], [place] [address] January, [facility] [address] [id number] [address] [place] [address], [place] [address] January, [facility] [address] [id number] [address] [place] [address], [place] [address] January, [facility] [address] [id number] [address] [place] [address], [place] [address] January, [facility] [address] [id number] [facility] [place] [address] Dec, [facility] [address] [id number] [facility] [place] [address] Dec, [facility] [address] [id number] [address] [place] [address], [place] [address] Dec, [facility] [address] [id number] [address] [place] [address], [place] [address] Dec, [facility] [address] [id number] [address] [place] [address], [place] [address] Dec, [facility] [address] [id number] [address] [place] [address], [place] [address] Dec, [facility] [address] [id number] [address] [place] [address], [place] [address] Dec, [facility] [address] [id number] [address] [place] [address], [place] [address] Dec, [facility] [address] [id number] [address] [place] [address], [place] [address] Dec, [facility] [address] [id number] [address] [place] [address], [place] [address] Dec, [facility] [address] [id number] [address] [place] [address], [place] [address] Nov, [facility] [address] [id number] [address] [place] [address], [place] [address] Nov, [facility] [address] [id number] [address] [place] [address], [place] [address] Nov, [facility] [address] [id number] [address] [place] [address], [place] [address] Nov, [facility] [address] [id number] [address] [place] [address], [place] [address] Nov, [facility] [address] [id number] [address] [place] [address], [place] [address] 08 Nov, 2013 [facility] [address] [id number] [address] [place] [address], [place] [address] 05 Nov, 2013 [facility] [address] [id number] [address] [place] [address], [place] [address] 05 Nov, 2013 [facility] [address] [id number] [address] [place] [address], [place] [address] Nov, [facility] [address] [id number] [address] [place] [address], [place] [address] Nov, [facility] [address] [id number] [address] [place] [address], [place] [address] Oct, [facility] [address] [id number] [address] [place] [address], [place] [address] Oct, [facility] [address] [id number] [address] [place] [address], [place] [address] Oct, [facility] [address] [id number] [address] [place] [address], [place] [address] Oct, [facility] [address] [id number] [address] [place] [address], [place] [address] 20 Oct, 2013 [facility] [address] [id number] [address] [place] [address], [place] [address] 20 Oct, 2013 [facility] [address] [id number] [address] [place] [address], [place] [address] 14 Oct, 2013 [facility] [address] [id number] [address] [place] [address], [place] [address] 14 Oct, 2013 [facility] [address] [id number] [address] [place] [address], [place] [address] 05 Oct, 2013 [facility] [address] [id number] [address] [place] [address], [place] [address] 05 Oct, 2013 [facility] [address] [id number] [address] [place] [address], [place] [address] Oct, [facility] [address] [id number] [address] [place] [address], [place] [address] Oct, [facility] [address] [id number] [address] [place] [address], [place] [address] Oct, [facility] [address] [id number] [address] [place] [address], [place] [address] Oct, [facility] [address] [id number] [address] [place] [address], [place] [address] Sep, [facility] [address] [id number] [address] [place] [address], [place] [address] Sep, [facility] [address] [id number] [address] [place] [address], [place] [address] Sep, [facility] [address] [id number] [address] [place] [address], [place] [address] Sep, [facility] [address] [id number] [address] [place] [address], [place] [address] Sep, [facility] [address] [id number] [address] [place] [address], [place] [address] Sep, [facility] [address] [id number] [address] [place] [address], [place] [address] Sep, [facility] [address] [id number] [address] [place] [address], [place] [address] Sep, [facility] [address] [id number] [address] [place] [address], [place] [address] Sep, [facility] [address] [id number] [address] [place] [address], [place] [address] Sep, [facility] [address] [id number] [address] [place] [address], [place] [address] Aug, [facility] [address] [id number] [address] [place] [address], [place] [address] Aug, [facility] [address] [id number] [address] [place] [address], [place] [address] Jul, [facility] [address] [id number] [address] [place] [address], [place] [address] Jul, [facility] [address] [id number] [address] [place] [address], [place] [address] Jul, [facility] [address] [id number] [address] [place] [address], [place] [address] Jul, [facility] [address] [id number] [address] [place] [address], [place] [address] Jul, [facility] [address] [id number] [address] [place] [address], [place] [address] Jul, [facility] [address] [id number] [address] [place] [address], [place] [address] Jul, [facility] [address] [id number] [address] [place] [address], [place] [address] Jul, [facility] [address] [id number] [address] [place] [address], [place] [address] Jul, [facility] [address] [id number] [address] [place] [address], [place] [address] Jul, [facility] [address] [id number] [address] [place] [address], [place] [address] Jul, [facility] [address] [id number] [address] [place] [address], [place] [address] Jul, [facility] [address] [id number] [address] [place] [address], [place] [address] Jul, [facility] [address] [id number] [address] [place] [address], [place] [address] Jul, [facility] [address] [id number] [address] [place] [address], [place] [address] Jul, [facility] [address] [id number] [address] [place] [address], [place] [address] Jul, [facility] [address] [id number] [address] [place] [address], [place] [address] Jul, 2012 [facility] [address] [id number] [address] [place] [address], [place] [address] Jul, [facility] [address] [id number] [address] [place] [address], [place] [address] Jul, 2012 [facility] [address] [id number] [address] [place] [address], [place] [address] Jun, 2012 [facility] [address] [id number] [address] [place] [address], [place] [address] Jun, 2012 [facility] [address] [id number] [address] [place] [address], [place] [address] Jun, 2012 [facility] [address] [id number] [address] [place] [address], [place] [address] Jun, 2012 [facility] [address] [id number] [address] [place] [address] Jun, [facility] [address] [id number] [address] [place] [address] Jun, [facility] [address] [id number] [address] [place] [address] Jun, [facility] [address] [id number] [address] [place] [address] Jun, [facility] [address] [id number] [address] [place] [address] Jun, [facility] [address] [id number] [address] [place] [address] Jun, [facility] [address] [id number] [address] [place] [id number] Jun, [facility] [address] [id number] [address] [place] [address] May, [facility] [address] [id number] [address] [place] [address] 25 May, 2013 [facility] [address] [id number] [address] [place] [address], [place] [address] 19 May, 2012 [facility] [address] [id number] [address] [place] [address], [place] [address] 17 May, 2013 [facility] [address] [id number] [address] [place] [address], [place] [address] 11 May, 2012 [facility] [address] [id number] [address] [place] [address], [place] [address] 10 May, 2012 [facility] [address] [id number] [address] [place] [address], [place] [address] 09 May, 2013 [facility] [address] [id number] [address] [place] [address], [place] [address] 05 May, 2013 [facility] [address] [id number] [address] [place] [address], [place] [address] Apr, [facility] [address] [id number] [address] [place] [address], [place] [address] Apr, [facility] [facility] [address] [id number] [address] [place] [address], [place] [address] Apr, [facility] [address] [id number] [address] [place] [address], [place] [address] Apr, [facility] [address] [id number] [address] [place] [address], [place] [address] Apr, [facility] [address] [id number] [address] [place] [address], [place] [address] Mar, [facility] [address] [id number] [address] [place] [address], [place] [address] Mar, [facility] [address] [id number] [address] [place] [address], [place] [address] Mar, [facility] [address] [id number] [address] [place] [address], [place] [address] Mar, [facility] [address] [id number] [facility] [place] [address] Mar, [facility] [address] [id number] [address] [place] [address], [place] [address] Mar, [facility] [address] [id number] [address] [place] [address], [place] [address] Mar, [facility] [address] [id number] [address] [place] [address], [place] [address] Mar, [facility] [address] [id number] [address] [place] [address], [place] [address] Feb, [facility] [address] [id number] [address] [place] [address], [place] [address] Feb, [facility] [address] [id number] [address] [place] [address], [place] [address] January, [facility] [address] [id number] [address] [place] [address], [place] [address] January, [facility] [address] [id number] [address] [place] [address], [place] [address] Dec, [facility] [address] [id number] [address] [place] [address], [place] [address] Dec, [facility] [address] [id number] [address] [place] [address], [place] [address] Nov, [facility] [address] [id number] [address] [place] [address], [place] [address] Nov, [facility] [address] [id number] [address] [place] [address], [place] [address] Nov, [facility] [address] [id number] [address] [place] [address], [place] [address] Nov, [facility] [address] [id number] [address] [place] [address], [place] [address] Oct, [facility] [address] [id number] [address] [place] [address], [place] [address] Oct, [facility] [address] [id number] [address] [place] [address], [place] [address] Oct, [facility] [address] [id number] [address] [place] [address], [place] [address] Oct, [facility] [address] [id number] [address] [place] [address], [place] [address] 16 Oct, 2012 [facility] [address] [id number] [address] [place] [address], [place] [address] 14 Oct, 2012 [facility] [address] [id number] [address] [place] [address], [place] [address] 08 Oct, 2012 [facility] [address] [id number] [address] [place] [address], [place] [address] 07 Oct, 2012 [facility] [address] [id number] [address] [place] [address], [place] [address] 03 Oct, 2012 [facility] [address] [id number] [address] [place] [address], [place] [address] Sep, [facility] [address] [id number] [address] [place] [address], [place] [address] Sep, [facility] [address] [id number] [address] [place] [address], [place] [address] Sep, [facility] [address] [id number] [address] [place] [address], [place] [address] Sep, [facility] [address] [id number] [address] [place] [address], [place] [address] Sep, [facility] [address] [id number] [address] [place] [address], [place] [address] Sep, [facility] [address] [id number] [address] [place] [address], [place] [address] 09 Sep, 2012 [facility] [address] [id number] [address] [place] [address], [place] [address] 08 Sep, 2012 [facility] [address] [id number] [address] [place] [address], [place] [address] 31 Aug, 2012 [facility] [address] [id number] [address] [place] [address], [place] [address] Aug, [facility] [address] [id number] [address] [place] [address], [place] [address] Aug, [facility] [address] [id number] [address] [place] [address], [place] [address] Aug, [facility] [address] [id number] [address] [place] [address], [place] [address] Aug, [facility] [address] [id number] [address] [place] [address], [place] [address] Aug, [facility] [address] [id number] [address] [place] [address], [place] [address] Aug, [facility] [address] [id number] [address] [place] [address], [place] [address] Aug, [facility] [address] [id number] [address] [place] [address], [place] [address] Jul, [facility] [address] [id number] [address] [place] [address], [place] [address] Jul, [facility] [address] [id number] [address] [place] [address], [place] [address] Jul, [facility] [address] [id number] [address] [place] [address], [place] [address] Jul, [facility] [address] [id number] [address] [place] [address], [place] [address] Jul, [facility] [address] [id number] [address] [place] [address], [place] [address] Jul, [facility] [address] [id number] [address] [place] [address], [place] [address] Jun, [facility] [address] [id number] [address] [place] [address], [place] [address] Jun, [facility] [address] [id number] [address] [place] [address], [place] [address] Jun, [facility] [address] [id number] [address] [place] [address], [place] [address] Jun, [facility] [address] [id number] [address] [place] [address], [place] [address] Jun, [facility] [address] [id number] [address] [place] [address], [place] [address] Jun, [facility] [address] [id number] [address] [place] [address], [place] [address] Jun, [facility] [address] [id number] [address] [place] [address], [place] [address] Jun, [facility] [address] [id number] [address] [place] [address], [place] [address] Jun, [facility] [address] [id number] [address] [place] [address], [place] [address] 26 May, 2012 [facility] [address] [id number] [address] [place] [address], [place] [address] 24 May, 2012 [facility] [address] [id number] [address] [place] [address], [place] [address] 18 May, 2012 [facility] [address] [id number] [address] [place] [address], [place] [address] 30 Apr, 2012 [facility] [address] [id number] [address] [place] [address], [place] [address] 29 Apr, 2012 [facility] [address] [id number] [address] [place] [address], [place] [address] 18 Apr, 2012 [facility] [address] [id number] [address] [place] [address], [place] [address] 14 Apr, 2012 [facility] [address] [id number] [address] [place] [address], [place] [address] 10 Apr, 2012 [facility] [address] [id number] [address] [place] [address], [place] [address] Apr, [facility] [address] [id number] [address] [place] [address], [place] [address] Mar, [facility] [address] [id number] [address] [place] [address], [place] [address] Mar, [facility] [address] [id number] [address] [place] [address], [place] [address] Mar, [facility] [address] [id number] [address] [place] [address], [place] [address] Mar, [facility] [address] [id number] [address] [place] [address], [place] [address] Feb, [facility] [address] [id number] [address] [place] [address], [place] [address] Feb, [facility] [address] [id number] [address] [place] [address], [place] [address] Feb, [facility] [address] [id number] [address] [place] [address], [place] [address] Feb, [facility] [address] [id number] [address] [place] [address], [place] [address] Feb, [facility] [address] [id number] [address] [place] [address], [place] [address] January, [facility] [address] [id number] [address] [place] [address], [place] [address] January, [facility] [address] [id number] [address] [place] [address], [place] [address] January, [facility] [address] [id number] [address] [place] [address], [place] [address] January, [facility] [address] [id number] [address] [place] [address], [place] [address] January, [facility] [address] [id number] [address] [place] [address], [place] [address] January, [facility] [address] [id number] [address] [place] [address], [place] [address] Dec, [facility] [address] [id number] [address] [place] [address], [place] [address] 24 Dec, 2011 [facility] [address] [id number] [address] [place] [address], [place] [address] 17 Dec, 2011 [facility] [address] [id number] [address] [place] [address], [place] [address] Dec, [facility] [address] [id number] [address] [place] [address], [place] [address] Dec, [facility] [address] [id number] [address] [place] [address], [place] [address] 27 Nov, 2011 [facility] [address] [id number] [address] [place] [address], [place] [address] 14 Nov, 2011 [facility] [address] [id number] [address] [place] [address], [place] [address] Nov, [facility] [address] [id number] [address] [place] [address], [place] [address] Nov, [facility] [address] [id number] [address] [place] [address], [place] [address] 29 Oct, 2011 [facility] [address] [id number] [address] [place] [address], [place] [address] Oct, [facility] [address] [id number] [address] [place] [address], [place] [address] 24 Oct, 2011 [facility] [address] [id number] [address] [place] [address], [place] [address] 13 Oct, 2011 [facility] [address] [id number] [address] [place] [address], [place] [address] 08 Oct, 2011 [facility] [address] [id number] [address] [place] [address], [place] [address] Sep, [facility] [address] [id number] [address] [place] [address], [place] [address] Sep, [facility] [address] [id number] [address] [place] [address], [place] [address] Sep, [facility] [address] [id number] [address] [place] [address], [place] [address] Sep, [facility] [address] [id number] [address] [place] [address], [place] [address] Sep, [facility] [address] [id number] [address] [place] [address], [place] [address] Sep, [facility] [address] [id number] [address] [place] [address], [place] [address] Aug, [facility] [address] [id number] [address] [place] [address], [place] [address] Aug, [facility] [address] [id number] [address] [place] [address], [place] [address] Aug, [facility] [address] [id number] [address] [place] [address], [place] [address] Jul, [facility] [address] [id number] [address] [place] [address], [place] [address] Jul, [facility] [address] [id number] [address] [place] [address], [place] [address] Jul, [facility] [address] [id number] [address] [place] [address], [place] [address] Jul, [facility] [address] [id number] [address] [place] [address], [place] [address] Jun, [facility] [address] [id number] [address] [place] [address], [place] [address] Jun, [facility] [address] [id number] [address] [place] [address], [place] [address] Jun, [facility] [address] [id number] [address] [place] [address], [place] [address] Jun, [facility] [address] [id number] [address] [place] [address], [place] [address] 10 Jun, 2011 [facility] [address] [id number] [address] [place] [address], [place] [address] 10 Jun, 2011 [facility] [address] [id number] [address] [place] [address], [place] [address] 11 Mar, 2011 [facility] [address] [id number] [address] [place] [address], [place] [address] 18 Dec, 2010 [facility] [address] [id number] [address] [place] [address], [place] [address] 11 Dec, 2010 [facility] [address] [id number] [address] [place] [address], [place] [address] 18 Nov, 2010 [facility] [address] [id number] [address] [place] [address], [place] [address] 16 Nov, 2010 [facility] [address] [id number] [address] [place] [address], [place] [address] 10 Sep, 2010 [facility] [address] [id number] [address] [place] [address], [place] [address] 31 Aug, 2010 [facility] [address] [id number] [address] [place] [address], [place] [address] 29 Aug, 2010 [facility] [address] [id number] [address] [place] [address], [place] [address] 29 Aug, 2010 [facility] [address] [id number] [address] [place] [address], [place] [address] 29 Aug, 2010 [facility] [address] [id number] [address] [place] [address], [place] [address] 27 Aug, 2010 [facility] [address] [id number] [address] [place] [address], [place] [address] 14 Aug, 2010 [facility] [address] [id number] [address] [place] [address], [place] [address] 08 Aug, 2010 [facility] [address] [id number] [address] [place] [address], [place] [address] 08 Aug, 2010 [facility] [address] [id number] [address] [place] [address], [place] [address] Aug, [facility] [address] [id number] [address] [place] [address], [place] [address] Aug, [facility] [address] [id number] [address] [place] [address], [place] [address] Aug, [facility] [address] [id number] [address] [place] [address] Aug, [facility] [address] [id number] [address] [place] [address], [place] [address] Jul, [facility] [address] [id number] [address] [place] [address] Jul, [facility] [address] [id number] [address] [place] [address], [place] [address] Jul, [facility] [address] [id number] [address] [place] [address] Jul, [facility] [address] [id number] [address] [place] [address] Jul, [facility] [address] [id number] [address] [place] [address] Jul, [facility] [address] [id number] [address] [place] [address] 24 Jun, 2010 [facility] [address] [id number] [address] [place] [address] Jun, [facility] [address] [id number] [address] [place] [address] Jun, [facility] [address] [id number] [address] [place] [address] Jun, [facility] [address] [id number] [address] [place] [address] Apr, [facility] [address] [id number] [address] [place] [address], [place] [address] Mar, [facility] [address] [id number] [address] [place] [address], [place] [address] 17 Feb, 2010 [facility] [address] [id number] [address] [place] [address], [place] [address] January, [facility] [address] [id number] [address] [place] [address], [place] [address] 15 Dec, 2009 [facility] [address] [id number] [address] [place] [address], [place] [address] Nov, [facility] [address] [id number] [address] [place] [address], [place] [address] 31 Aug, 2009 [facility] [address] [id number] [address] [place] [address], [place] [address] Aug, [facility] [address] [id number] [address] [place] [address], [place] [address] Aug, [facility] [address] [id number] [address] [place] [address], [place] [address] Jul, [facility] [address] [id number] [address] [place] [address], [place] [address] Jul, [facility] [address] [id number] [address] [place] [address], [place] [address] 07 Jul, 2009 [facility] [address] [id number] [address] [place] [address], [place] [address] 30 Jun, 2009 [facility] [address] [id number] [address] [place] [id number] 29 Jun, 2009 [facility] [address] [id number] [address] [place] [address], [place] [address] 26 Jun, 2009 [facility] [address] [id number] [address] [place] [address], [place] [address] 22 Jun, 2009 [facility] [address] [id number] [address] [place] [id number] Jun, [facility] [address] [facility] [id number] [address] [place] [id number] Jun, [facility] [address] [facility] [id number] [address] [place] [id number] Apr, [facility] [address] [facility] [id number] [address] [place] [id number] Apr, [facility] [address] [facility] [id number] [address] [place] [phone] Feb, [facility] [address] [facility] [id number] [address] [place] [id number] January, [facility] [address] [facility] [id number] [address] [place] [id number] Dec, IMMUNIZATIONS No Known Immunizations SOCIAL HISTORY [...] obesity Medical History skin cancer-basal cell R buddhism (removed ) Medical History Arthritis Medical History [...] History inability to urinate 09/16/15 Hospitalization History [facility] inpatient mental health ea rly 1999's Hospitalization History hyperkalemia 10/2017 Hospitalization History fluid in lung
--- OUTSIDE RECORDS SUMMARY | 2020-03-01 18:20 | XMS REPORT ---
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 Name Role Phone NOEMI WASHBURN Unavailable PROBLEMS Type Condition ICD9-CM Code [id number] Code Onset Dates Condition S tatus SNOMED Code Problem Cough R05 Active 68968650 Problem Benign prostatic hyperplasia with lower urinary tract symptoms, unspecified morphology N40.1 Active 31722 6007 Problem Eustachian tube dysfunction, unspecified laterality H69.80 Active 95623887 Problem Chronic pain G89.29 Active 4566659 1 Problem DM neuro manif type II E11.49 Active 42536926 Problem Diabetes E11.9 Active 15296805 Problem Leukocytosis D72.829 Active 0019198 06 Problem Falling R29.6 Active 573904746 Problem Pressure ulcer of other site, stage 3 L89.893 Active 229183824 Problem 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 Active 732902472 Problem Eye exam abnormal R93.8 Active 16 9882018 Problem Dysuria R30.0 Active 72044898 Problem Hypokalemia E87.6 Active 05712425 Problem Morbid obesity E66.01 Active 93941 6002 Problem Anxiety F41.9 Active 22233034 Problem Diabetic polyneuropathy associated with type 2 d iabetes mellitus E11.42 Active 64182149 Problem Essential hypertension I10 Active 51850943 Problem Bilateral primary osteoarthritis of knee M17.0 Active 838949375 Problem Polyneuropathy associated with underlying disease G63 Active 116931493 Problem Anemia of chronic illness D63.8 Acti ve 330447428 Problem Lymphocytosis D72.820 Active 703478 09 Problem Retinal edema H35.81 Active 539572 6 Problem Chronic lymphocytic leukemia C91.10 A ctive 63549962 Problem Bipolar disorder, in partial remission, most rec ent episode depressed F31.75 Active 96936079 Problem Pure hypercholesterolemia E78.00 Acti ve 760409117 Problem Primary osteoarthritis of right knee M17.11 Active [id number] Problem Bipolar disorder F31.9 Active 137 50710 Problem Bipolar I disorder, most recent episode (or curr ent) mixed, moderate F31.62 Active 10074881 Problem Chronic diastolic (congestive) heart failure I50.3 2 Active 029236167 Problem Reactive airway disease J45.909 Active 992524356497 Problem Insomnia, unspecified type G47.00 Act sharon 580586254 Problem Other chronic pain G89.29 Active 8 9595270 Problem Other iron deficiency anemia D50.8 A ctive 75426248 Problem Mild cognitive impairment G31.84 Acti ve 245762527 Problem Skin cancer C44.90 Active 08665402 7 ALLERGIES No Information ENCOUNTERS Encounter Location Date Diagnosis [place] [address] [facility] [id number] [address] [place] [phone] Apr, [place] [address] [place] [id number] [address] [place] [phone] Apr, [place] [address] [address] [facility] [id number] [address] [place] [phone] Mar, Bipolar disorder F31.9 and C hronic pain G89.29 [place] [address] [address] [facility] [id number] [address] [place] [phone] Feb, Bipolar disorder F31.9 [place] [id number] [facility] [id number] [address] [place] [id number] 17 Feb, 2019 Cellulitis of right upper ex tremity L03.113 and Skin abrasion T14.8XXA [facility] [address] [facility] [id number] [address] [place] [id number] 17 Feb, 2019 Bipolar disorder, in partial remission, most recent episode depressed F31.75 and Mild cognitive impairment G31.84 [place] [address] [address] [facility] [id number] [address] [place] [id number] 13 Feb, 2019 Chronic pain G89.29 [place] [address] [facility] [id number] [address] [place] [phone] 03 Feb, 2019 Bipolar disorder, in partial remission, most recent episode depressed F31.75 and Mild cognitive impairment G31.84 [facility] [address] [id number] [address] [place] [phone] January, Bipolar disorder, in partial remission, most recent episode depressed F31.75 and Mild cognitive impairment G31.84 [facility] [address] [id number] [address] [place] [phone] January, Chronic pain G89.29 and Bipo lar disorder F31.9 [facility] [address] [id number] [address] [place] [phone] January, Bipolar disorder, in partial remission, most recent episode depressed F31.75 and Mild cognitive impairment G31.84 [facility] [address] [id number] [address] [place] [id number] Dec, [facility] [address] [id number] [address] [place] [phone] Dec, Chronic pain G89.29 and Bipo lar disorder F31.9 [facility] [address] [id number] [address] [place] [id number] Dec, Edema of both lower extremit ies R60.0 [facility] [address] [id number] [address] [place] [id number] Dec, Bipolar disorder F31.9 [facility] [address] [id number] [address] [place] [phone] Dec, Bipolar disorder, in partial remission, most recent episode depressed F31.75 and Mild cognitive impairment G31.84 [facility] [address] [id number] [address] [place] [phone] Nov, [facility] [address] [id number] [address] [place] [phone] Nov, Chronic pain G89.29 [facility] [address] [id number] [address] [place] [phone] Nov, Bipolar disorder, in partial remission, most recent episode depressed F31.75 and Mild cognitive impairment G31.84 [place] [address] [place] [id number] [address] [place] [phone] Nov, Bipolar disorder F31.9 [place] [address] [place] [id number] [address] [place] [id number] 04 Nov, 2018 Encounter for Medicare [employer] [...] unspecified morphology N40.1 and Essential hypertension I10 [place] [address] [place] [id number] [address] [place] [phone] Oct, Chronic pain G89.29 [place] [id number] [place] [id number] 18 Oct, 2018 Diabetes E11.9 [place] [address] [place] [id number] [address] [place] [phone] Oct, Bipolar I disorder, most rec ent episode (or current) mixed, moderate F31.62 and Mild cognitive impairment G31.84 [place] [address] [place] [phone] Oct, Bipolar I disorder, most rec ent episode (or current) mixed, moderate F31.62 and Mild cognitive impairment G31.84 [place] [address] [place] [id number] [address] [place] [phone] Sep, Bipolar I disorder, most rec ent episode (or current) mixed, moderate F31.62 and Mild cognitive impairment G31.84 [place] [address] [place] [id number] [address] [place] [phone] Sep, [facility] [address] [id number] [address] [place] [phone] Sep, Diabetes E11.9 ; Hypoxia R09 .02 ; Hyperglycemia R73.9 ; Therapeutic drug monitoring Z51.81 ; BMI 50.0-59.9, adult Z68.43 and Skin cancer C44.90 [place] [address] [address] [facility] [id number] [address] [place] [phone] Sep, Chronic pain G89.29 [place] [address] [id number] [address] [place] [phone] Sep, Bipolar I disorder, most rec ent episode (or current) mixed, moderate F31.62 [place] [address] [address] [facility] [id number] [address] [place] [phone] Sep, [place] [address] [facility] [id number] [address] [place] [phone] Sep, [place] [address] [facility] [id number] [address] [place] [phone] Aug, Chronic pain G89.29 [place] [address] [id number] [address] [place] [phone] Aug, Bipolar I disorder, most rec ent episode (or current) mixed, moderate F31.62 [place] [address] [facility] [id number] [address] [place] [phone] Aug, Bipolar I disorder, most rec ent episode (or current) mixed, moderate F31.62 and Mild cognitive impairment G31.84 [place] [address] [id number] [address] [place] [phone] Jul, [place] [address] [facility] [id number] [address] [place] [phone] Jul, Chronic pain G89.29 [facility] [address] [id number] [address] [place] [id number] Jul, Bipolar I disorder, most rec ent episode (or current) mixed, moderate F31.62 and Mild cognitive impairment G31.84 [facility] [address] [facility] [id number] [address] [place] [id number] Jul, Bipolar I disorder, most rec ent episode (or current) mixed, moderate F31.62 and MCI (mild cognitive impairment) G31.84 [facility] [address] [facility] [id number] [address] [place] [phone] Jul, [facility] [address] [facility] [id number] [address] [place] [phone] Jul, [place] [address] [facility] [id number] [address] [place] [phone] Jul, Bipolar I disorder, most rec ent episode (or current) mixed, moderate F31.62 [place] [address] [facility] [id number] [address] [place] [phone] Jul, Chronic pain G89.29 [place] [address] [facility] [id number] [address] [place] [id number] Jun, Bipolar I disorder, most rec ent episode (or current) mixed, moderate F31.62 [place] [address] [place] [id number] [address] [place] [id number] Jun, Pre-procedure lab exam Z01.8 12 [place] [address] [place] [id number] [address] [place] [id number] Jun, [facility] [address] [id number] [place] [id number] Jun, [place] [address] [facility] [id number] [address] [place] [phone] Jun, [place] [address] [place] [id number] [address] [place] [id number] Jun, Forgetfulness R68.89 ; Pre-s yncope R55 ; Localized edema R60.0 ; Other iron deficiency anemia D50.8 and BMI 50.0-59.9, adult Z68.43 [place] [address] [place] [id number] [address] [place] [id number] 05 Jun, 2018 Chronic pain G89.29 [facility] [address] [place] [id number] [address] [place] [phone] 05 Jun, 2018 Chronic pain G89.29 [facility] [address] [place] [id number] [address] [place] [phone] Jun, Bipolar I disorder, most rec ent episode (or current) mixed, moderate F31.62 [facility] [address] [place] [id number] [address] [place] [phone] May, Chronic pain G89.29 [facility] [address] [phone] Apr, [place] [address] [place] [id number] [place] [address] Apr, Chronic pain G89.29 [place] [address] [address] Apr, Primary osteoarthritis of ri t knee M17.11 [place] [address] [address] Mar, [place] [address] [address] Mar, BMI 50.0-59.9, adult Z68.43 and Bipolar disorder, in partial remission, most recent episode depressed F31.75 [place] [address] [place] [id number] [address] [place] [phone] Mar, Diabetes E11.9 ; Pure hyperc holesterolemia E78.00 ; Essential hypertension I10 ; Nausea with vomiting, unspecified R11.2 and Headache, unspecified headache type R51 [place] [address] [place] [id number] [address] [place] [phone] Mar, Bipolar I disorder, most rec ent episode (or current) mixed, moderate F31.62 [place] [address] [address] Mar, Bipolar I disorder, most rec ent episode (or current) mixed, moderate F31.62 [facility] [address] [facility] [id number] [address] [place] [phone] Mar, Chronic pain G89.29 [facility] [address] [facility] [id number] [address] [place] [phone] Mar, Bipolar I disorder, most rec ent episode (or current) mixed, moderate F31.62 [place] [address] [facility] [id number] [address] [place] [phone] Feb, Bipolar I disorder, most rec ent episode (or current) mixed, moderate F31.62 [place] [address] [place] [id number] [address] [place] [id number] Feb, Chronic pain G89.29 [place] [address] [place] [id number] [address] [place] [phone] Feb, Decubitus ulcer of right josselin t, stage 3 L89.893 and BMI 50.0-59.9, adult Z68.43 [place] [address] [facility] [id number] [address] [place] [phone] Feb, Bipolar I disorder, most rec ent episode (or current) mixed, moderate F31.62 [place] [address] [facility] [id number] [address] [place] [phone] Feb, [facility] [address] [facility] [id number] [address] [place] [phone] January, [facility] [address] [facility] [id number] [address] [place] [phone] January, Chronic pain G89.29 [facility] [address] [facility] [id number] [address] [place] [id number] January, Bipolar I disorder, most rec ent episode (or current) mixed, moderate F31.62 [place] [address] [facility] [id number] [address] [place] [phone] January, Bipolar I disorder, most rec ent episode (or current) mixed, moderate F31.62 [place] [address] [facility] [id number] [address] [place] [id number] Dec, Bipolar I disorder, most rec ent episode (or current) mixed, moderate F31.62 and BMI 50.0-59.9, adult Z68.43 [place] [address] [place] [id number] [address] [place] [id number] Dec, Bipolar I disorder, most rec ent episode (or current) mixed, moderate F31.62 [place] [address] [facility] [id number] [address] [place] [phone] Dec, Chronic pain G89.29 [place] [address] [facility] [id number] [address] [place] [address] Dec, DM neuro manif type II E11.4 9 ; Right flank pain R10.9 ; 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 ; Encounter for medication monitoring Z51.81 and BMI 50.0-59.9, adult Z68.43 [place] [address] [place] [id number] [address] [place] [id number] Dec, Bipolar I disorder, most rec ent episode (or current) mixed, moderate F31.62 [place] [address] [place] [id number] [address] [place] [phone] Nov, Bipolar I disorder, most rec ent episode (or current) mixed, moderate F31.62 [place] [address] [facility] [id number] [address] [place] [id number] Nov, Chronic pain G89.29 [place] [address] [place] [id number] [address] [place] [id number] Nov, Bipolar I disorder, most rec ent episode (or current) mixed, moderate F31.62 [place] [address] [facility] [id number] [address] [place] [phone] Nov, Hypokalemia E87.6 [place] [address] [place] [id number] [address] [place] [phone] Nov, Bipolar I disorder, most rec ent episode (or current) mixed, moderate F31.62 [place] [address] [place] [id number] [place] [address] Oct, Chronic pain G89.29 [place] [address] [address] Oct, BMI 50.0-59.9, adult Z68.43 and Bipolar I disorder, most recent episode (or current) mixed, moderate F31.62 [place] [address] [address] Oct, Bipolar I disorder, most rec ent episode (or current) mixed, moderate F31.62 [place] [address] [address] Oct, [place] [address] [address] Oct, Hypokalemia E87.6 [place] [address] [address] Oct, DM neuro manif type II E11.4 9 [place] [address] [address] Oct, Bipolar I disorder, most rec ent episode (or current) mixed, moderate F31.62 [place] [address] [place] [id number] [address] [place] [address] Oct, Bipolar I disorder, most rec ent episode (or current) mixed, moderate F31.62 [place] [address] [place] [id number] [address] [place] [address] 14 Oct, 2017 Hyperkalemia E87.5 ; Falling R29.6 ; BMI 50.0-59.9, adult Z68.43 and Acute left ankle pain M25.572 [place] [address] [place] [id number] [address] [place] [id number] 08 Oct, 2017 DM neuro manif type II E11.4 9 [place] [address] [place] [address] Oct, [place] [address] [place] [id number] [place] [address] Sep, Chronic pain G89.29 [place] [address] [address] Sep, [place] [address] [address] Sep, Bilateral primary osteoarthr itis of knee M17.0 [place] [address] [address] Sep, Generalized edema R60.1 [place] [address] [address] 16 Sep, 2017 Bipolar I disorder, most rec ent episode (or current) mixed, moderate F31.62 [place] [address] [address] 15 Sep, 2017 Hypoxia R09.02 ; Other hyper volemia E87.79 ; Diabetes E11.9 ; Retinal edema H35.81 ; Hypokalemia E87.6 ; 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 ; Anemia of chronic illness D63.8 and BMI 50.0- 59.9, adult Z68.43 [place] [address] [place] [id number] [address] [place] [address] Sep, [address] [address] Sep, Bipolar I disorder, most rec ent episode (or current) mixed, moderate F31.62 [place] [address] [address] Aug, Chronic pain G89.29 [facility] [address] [facility] [id number] [address] [place] [id number] Aug, Generalized edema R60.1 [facility] [address] [facility] [id number] [address] [place] [phone] Aug, [facility] [address] [facility] [id number] [address] [place] [id number] Aug, [facility] [address] [facility] [id number] [address] [place] [id number] 14 Aug, 2017 Bipolar I disorder, most rec ent episode (or current) mixed, moderate F31.62 [place] [address] [facility] [id number] [address] [place] [phone] Aug, Bipolar I disorder, most rec ent episode (or current) mixed, moderate F31.62 [place] [address] [facility] [id number] [address] [place] [phone] 04 Aug, 2017 Chronic pain G89.29 [facility] [address] [facility] [id number] [address] [place] [phone] 30 Jul, 2017 Bipolar I disorder, most rec ent episode (or current) mixed, moderate F31.62 [facility] [address] [facility] [id number] [address] [place] [address] Jul, Bipolar I disorder, most rec ent episode (or current) mixed, moderate F31.62 and BMI 60.0-69.9, adult Z68.44 [facility] [address] [facility] [id number] [address] [place] [id number] 16 Jul, 2017 Bipolar I disorder, most rec ent episode (or current) mixed, moderate F31.62 [place] [address] [facility] [id number] [address] [place] [phone] 06 Jul, 2017 Chronic pain G89.29 [facility] [address] [facility] [id number] [address] [place] [phone] 02 Jul, 2017 Bipolar I disorder, most rec ent episode (or current) mixed, moderate F31.62 [facility] [address] [id number] [address] [place] [id number] 18 Jun, 2017 Polyneuropathy associated wi th underlying disease G63 and Diabetes E11.9 [facility] [address] [id number] [address] [place] [id number] 16 Jun, 2017 Bipolar I disorder, most rec ent episode (or current) mixed, moderate F31.62 [facility] [address] [id number] [address] [place] [phone] Jun, Chronic pain G89.29 [facility] [address] [id number] [address] [place] [id number] May, Bipolar I disorder, most rec ent episode (or current) mixed, moderate F31.62 [facility] [address] [facility] [id number] [address] [place] [id number] 21 May, 2017 Bipolar I disorder, most rec ent episode (or current) mixed, moderate F31.62 [facility] [address] [id number] [address] [place] [id number] 20 May, 2017 Diabetic polyneuropathy asso ciated with type 2 diabetes mellitus E11.42 [facility] [address] [id number] [address] [place] [id number] 18 May, 2017 Bipolar I disorder, most rec ent episode (or current) mixed, moderate F31.62 [facility] [address] [facility] [id number] [address] [place] [id number] 13 May, 2017 Bipolar I disorder, most rec ent episode (or current) mixed, moderate F31.62 [facility] [address] [id number] [address] [place] [id number] May, Chronic pain G89.29 [facility] [address] [facility] [id number] [address] [place] [id number] Apr, Bipolar I disorder, most rec ent episode (or current) mixed, moderate F31.62 [facility] [address] [facility] [id number] [address] [place] [id number] Apr, [facility] [address] [id number] [address] [place] [phone] Apr, Chronic pain G89.29 and DM n euro manif type II E11.49 [facility] [address] [facility] [id number] [address] [place] [id number] Apr, [facility] [address] [facility] [id number] [address] [place] [phone] Apr, Bipolar I disorder, most rec ent episode (or current) mixed, moderate F31.62 [facility] [address] [facility] [id number] [address] [place] [address] [place] [phone] Apr, Chronic pain G89.29 [facility] [address] [facility] [id number] [address] [place] [id number] Apr, Iliotibial band syndrome, le ft M76.32 [facility] [address] [facility] [id number] [address] [place] [phone] Apr, Bipolar I disorder, most rec ent episode (or current) mixed, moderate F31.62 [facility] [address] [facility] [id number] [address] [place] [phone] Mar, Bipolar I disorder, most rec ent episode (or current) mixed, moderate F31.62 [facility] [address] [facility] [id number] [address] [place] [phone] Mar, Bipolar I disorder, most rec ent episode (or current) mixed, moderate F31.62 [facility] [address] [facility] [id number] [address] [place] [phone] Mar, [facility] [address] [facility] [id number] [address] [place] [id number] Mar, Bipolar I disorder, most rec ent episode (or current) mixed, moderate F31.62 [facility] [address] [facility] [id number] [address] [place] [phone] Mar, Chronic pain G89.29 [facility] [address] [id number] [address] [place] [id number] Mar, Bipolar I disorder, most rec ent episode (or current) mixed, moderate F31.62 [facility] [address] [id number] [address] [place] [id number] Mar, Bipolar I disorder, most rec ent episode (or current) mixed, moderate F31.62 [facility] [address] [id number] [address] [place] [phone] Mar, Acute pain of left knee M25. 562 ; Left hip pain M25.552 ; Generalized edema R60.1 and Tongue swelling R22.0 [facility] [address] [id number] [address] [place] [phone] Mar, [facility] [address] [id number] [address] [place] [id number] Feb, Chronic pain G89.29 [facility] [address] [id number] [address] [place] [phone] Feb, Diabetes E11.9 [facility] [address] [id number] [address] [place] [phone] January, Chronic pain G89.29 [facility] [address] [facility] [id number] [address] [place] [id number] January, [facility] [address] [id number] [address] [place] [phone] January, Bipolar I disorder, most rec ent episode (or current) mixed, moderate F31.62 [facility] [address] [id number] [address] [place] [id number] Dec, Bipolar I disorder, most rec ent episode (or current) mixed, moderate F31.62 [facility] [address] [facility] [id number] [address] [place] [id number] Dec, Chronic pain G89.29 [facility] [address] [id number] [address] [place] [phone] Dec, Bipolar I disorder, most rec ent episode (or current) mixed, moderate F31.62 [facility] [address] [place] [id number] [address] [place] [id number] Dec, Diabetes E11.9 ; Essential h ypertension I10 ; Chronic pain G89.29 and Morbid obesity E66.01 [facility] [address] [place] [id number] [address] [place] [phone] Dec, [facility] [address] [facility] [id number] [address] [place] [id number] Dec, Bipolar I disorder, most rec ent episode (or current) mixed, moderate F31.62 [facility] [address] [place] [id number] [address] [place] [id number] Dec, Bipolar I disorder, most rec ent episode (or current) mixed, moderate F31.62 [facility] [address] [place] [id number] [address] [place] [phone] Nov, Chronic pain G89.29 [facility] [address] [place] [id number] [address] [place] [id number] Nov, Bipolar I disorder, most rec ent episode (or current) mixed, moderate F31.62 [facility] [address] [place] [id number] [address] [place] [phone] Nov, [facility] [address] [facility] [id number] [address] [place] [phone] Nov, Bipolar I disorder, most rec ent episode (or current) mixed, moderate F31.62 [facility] [address] [place] [id number] [address] [place] [phone] Nov, Bipolar I disorder, most rec ent episode (or current) mixed, moderate F31.62 [facility] [address] [place] [id number] [address] [place] [id number] Nov, [facility] [address] [place] [id number] [address] [place] [phone] Nov, [facility] [address] [facility] [id number] [address] [place] [phone] Nov, [facility] [address] [facility] [id number] [address] [place] [phone] Oct, Chronic pain G89.29 [facility] [address] [facility] [id number] [address] [place] [id number] Oct, Bipolar I disorder, most rec ent episode (or current) mixed, moderate F31.62 [facility] [address] [facility] [id number] [address] [place] [phone] Oct, [facility] [address] [facility] [id number] [address] [place] [id number] Oct, Chronic pain G89.29 ; Diabet es E11.9 ; Anxiety F41.9 and 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 [facility] [address] [facility] [id number] [address] [place] [phone] Oct, [facility] [address] [facility] [id number] [address] [place] [phone] Oct, Diabetes E11.9 [facility] [address] [facility] [id number] [address] [place] [phone] Oct, Bipolar I disorder, most rec ent episode (or current) mixed, moderate F31.62 [facility] [address] [facility] [id number] [address] [place] [id number] Sep, Chronic pain G89.29 [facility] [address] [facility] [id number] [address] [place] [phone] Sep, Chronic pain G89.29 [facility] [address] [facility] [id number] [address] [place] [phone] Aug, Chronic pain G89.29 [facility] [address] [facility] [id number] [address] [place] [id number] Jul, [facility] [address] [facility] [id number] [address] [place] [id number] Jul, Diabetes E11.9 [facility] [address] [facility] [id number] [address] [place] [id number] Jul, Chronic pain G89.29 [facility] [address] [facility] [id number] [address] [place] [phone] Jul, Bipolar I disorder, most rec ent episode (or current) mixed, moderate F31.62 [facility] [address] [facility] [id number] [address] [place] [id number] Jun, Bipolar I disorder, most rec ent episode (or current) mixed, moderate F31.62 [place] [address] [facility] [id number] [address] [place] [id number] Jun, [facility] [address] [facility] [id number] [address] [place] [phone] Jun, Bipolar I disorder, most rec ent episode (or current) mixed, moderate F31.62 [place] [id number] [facility] [id number] [address] [place] [phone] 30 May, 2016 Insomnia, unspecified type G 47.00 [facility] [address] [facility] [id number] [address] [place] [id number] May, Bipolar I disorder, most rec ent episode (or current) mixed, moderate F31.62 [facility] [address] [facility] [id number] [address] [place] [phone] 14 May, 2016 [facility] [address] [facility] [id number] [address] [place] [id number] 08 May, 2016 Bipolar I disorder, most rec ent episode (or current) mixed, moderate F31.62 [facility] [address] [facility] [id number] [address] [place] [id number] 06 May, 2016 Diabetes E11.9 and Essential hypertension I10 [facility] [address] [facility] [id number] [address] [place] [phone] Apr, Chronic pain G89.29 [facility] [address] [id number] [address] [place] [phone] Apr, Bipolar I disorder, most rec ent episode (or current) mixed, moderate F31.62 [facility] [address] [facility] [id number] [address] [place] [id number] Apr, [facility] [address] [facility] [id number] [address] [place] [phone] Apr, [facility] [address] [facility] [id number] [address] [place] [phone] Mar, Chronic pain G89.29 ; Headac he, unspecified headache type R51 ; Neuropathy G62.9 ; Pain of right hip joint M25.551 and Essential hypertension I10 [place] [address] [facility] [id number] [address] [place] [id number] Mar, Chronic pain G89.29 [facility] [address] [facility] [id number] [address] [place] [id number] Mar, Bipolar I disorder, most rec ent episode (or current) mixed, moderate F31.62 [place] [address] [facility] [id number] [address] [place] [id number] Feb, Bipolar I disorder, most rec ent episode (or current) mixed, moderate F31.62 and Insomnia, unspecified type G47.00 [place] [address] [facility] [id number] [address] [place] [phone] Feb, Chronic pain G89.29 [facility] [address] [facility] [id number] [address] [place] [phone] Feb, Bipolar I disorder, most rec ent episode (or current) mixed, moderate F31.62 [place] [address] [facility] [id number] [address] [place] [id number] January, Bipolar I disorder, most rec ent episode (or current) mixed, moderate F31.62 [place] [address] [facility] [id number] [address] [place] [phone] January, Chronic pain G89.29 [facility] [address] [facility] [id number] [address] [place] [phone] January, Chronic pain G89.29 and Esse ntial hypertension I10 [facility] [address] [facility] [id number] [address] [place] [id number] January, Bipolar I disorder, most rec ent episode (or current) mixed, moderate F31.62 [facility] [address] [facility] [id number] [address] [place] [phone] Dec, [facility] [address] [facility] [id number] [address] [place] [phone] Dec, [facility] [address] [place] [id number] [address] [place] [phone] Dec, [facility] [address] [facility] [id number] [address] [place] [phone] Dec, [facility] [address] [facility] [id number] [address] [place] [id number] Nov, Reactive airway disease J45. 909 [facility] [address] [place] [id number] [address] [place] [phone] Nov, [facility] [address] [facility] [id number] [address] [place] [id number] Nov, [facility] [address] [facility] [id number] [address] [place] [phone] Nov, [facility] [address] [facility] [id number] [address] [place] [phone] Nov, [facility] [address] [place] [id number] [address] [place] [id number] Nov, Onychomycosis B35.1 ; Hammer toe M20.40 ; Clive or callus L84 and DM neuro manif type II E11.49 [facility] [address] [address] Nov, Chronic pain G89.29 ; Leukoc ytosis D72.829 and Diabetes E11.9 [place] [address] [phone] Nov, [place] [address] [id number] Oct, Bronchitis J40 [place] [address] [address] Oct, [place] [address] [address] Oct, [place] [address] [address] Oct, Mastoiditis, unspecified lat erality H70.90 and Type 2 diabetes mellitus with complication E11.8 [place] [address] [address] Sep, [place] [address] [address] Sep, Dysuria R30.0 ; Cough R05 ; Benign prostatic hyperplasia with lower urinary tract symptoms, unspecified morphology N40.1 ; Hypokalemia E87.6 and Eustachian tube dysfunction, unspecified laterality H69.80 [place] [address] [address] Sep, Moderate mixed bipolar I dis order F31.62 [place] [address] [address] Sep, Hypokalemia E87.6 [place] [address] [address] Sep, [place] [address] [id number] Sep, Upper respiratory tract infe ction, unspecified type J06.9 [facility] [address] [id number] [address] [place] [phone] Aug, [facility] [address] [id number] [address] [place] [phone] Aug, Dysuria R30.0 [facility] [address] [id number] [address] [place] [phone] Aug, [facility] [address] [id number] [address] [place] [id number] Jul, [facility] [address] [id number] [address] [place] [phone] Jul, [facility] [address] [id number] [address] [place] [phone] Jul, [facility] [address] [id number] [address] [place] [phone] Jul, [facility] [address] [id number] [address] [place] [phone] Jun, [facility] [address] [id number] [address] [place] [phone] Jun, [facility] [address] [id number] [address] [place] [phone] Jun, [facility] [address] [facility] [id number] [address] [place] [phone] May, [facility] [address] [id number] [address] [place] [id number] May, Bipolar I disorder, most rec ent episode (or current) mixed, moderate 296.62 [facility] [address] [id number] [address] [place] [id number] 16 May, 2015 [facility] [address] [facility] [id number] [address] [place] [phone] May, Bipolar I disorder, most rec ent episode (or current) mixed, moderate 296.62 and Major depressive disorder, recurrent episode, severe, specified as with psychotic behavior 296.34 [facility] [address] [id number] [address] [place] [phone] May, Bipolar I disorder, most rec ent episode (or current) mixed, moderate 296.62 [facility] [address] [id number] [address] [place] [phone] May, [facility] [address] [id number] [address] [place] [phone] Apr, [facility] [address] [id number] [address] [place] [phone] Apr, [facility] [address] [facility] [id number] [address] [place] [phone] Apr, Unspecified disorder of kidn ey and ureter 593.9 and Diabetes mellitus type 2, uncontrolled 250.02 [facility] [address] [facility] [id number] [address] [place] [phone] Apr, [facility] [address] [id number] [address] [place] [phone] Apr, [facility] [address] [facility] [id number] [address] [place] [id number] Apr, [facility] [address] [facility] [id number] [address] [place] [phone] Apr, [facility] [address] [id number] [address] [place] [id number] Apr, Diabetes mellitus type II, u ncontrolled 250.02 [facility] [address] [id number] [address] [place] [id number] Apr, [facility] [address] [facility] [id number] [address] [place] [id number] Mar, [facility] [address] [facility] [id number] [address] [place] [phone] Mar, [facility] [address] [place] [id number] [address] [place] [phone] Mar, [facility] [address] [place] [id number] [address] [place] [id number] Mar, Major depressive disorder, r ecurrent episode, severe, specified as with psychotic behavior 296.34 and Bipolar I disorder, most recent episode (or current) mixed, moderate 296.62 [facility] [address] [place] [id number] [address] [place] [phone] Mar, Diabetes 250.00 ; Anuria 788 .5 ; Nausea and vomiting 787.01 and Diarrhea 787.91 [facility] [address] [place] [id number] [address] [place] [phone] Mar, Diabetes 250.00 [facility] [address] [place] [id number] [place] [phone] Mar, [facility] [address] [address] Mar, Diabetes 250.00 [facility] [address] [place] [id number] [address] [place] [id number] Mar, [facility] [address] [phone] Mar, [facility] [address] [place] [id number] [address] [place] [phone] Mar, [facility] [address] [place] [id number] [address] [place] [phone] Mar, [facility] [address] [place] [id number] [address] [place] [phone] Mar, Bipolar I disorder, most rec ent episode (or current) mixed, moderate 296.62 and Major depressive disorder, recurrent episode, severe, specified as with psychotic behavior 296.34 [facility] [address] [place] [id number] [address] [place] [phone] Mar, Magnesium deficiency 275.2 ; Hypokalemia 276.8 ; Nausea & vomiting 787.01 and Diabetes mellitus type 2, uncontrolled 250.02 [facility] [address] [address] Feb, [facility] [address] [id number] Feb, Bipolar I disorder, most rec ent episode (or current) mixed, moderate 296.62 [place] [address] [address] Feb, Nausea and vomiting 787.01 ; Left elbow pain 719.42 ; Anuria 788.5 and Diabetes 250.00 [place] [address] [id number] Feb, [place] [address] [id number] Feb, Hypopotassemia 276.8 and Hyp okalemia 276.8 [place] [address] [id number] Feb, Hypopotassemia 276.8 and Hyp okalemia 276.8 [place] [address] [id number] Feb, Seborrheic keratoses 702.19 [place] [address] [id number] Feb, Hypopotassemia 276.8 and Low magnesium levels 275.2 [place] [address] [id number] January, [facility] [address] [id number] January, [place] [address] [id number] January, [facility] [address] [address] January, Scalp lesion 709.9 [facility] [address] [id number] [address] [place] [id number] January, [facility] [address] [id number] [address] [place] [id number] Dec, Tear of medial cartilage or meniscus of knee, current 836.0 and Chondromalacia 733.92 [facility] [address] [id number] [address] [place] [id number] Dec, [facility] [address] [id number] [address] [place] [id number] Dec, [facility] [address] [id number] [address] [place] [id number] Dec, Squamous cell carcinoma, 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 [facility] [address] [id number] [address] [place] [id number] Dec, [facility] [address] [id number] [address] [place] [id number] Dec, [facility] [address] [id number] [address] [place] [id number] Nov, [facility] [address] [id number] [address] [place] [id number] Nov, [facility] [address] [id number] [address] [place] [id number] Nov, [facility], [facility] [address] [id number] [address] [place] [id number] Nov, [facility], [facility] [address] [id number] [address] [place] [id number] Nov, [facility] [address] [id number] [address] [place] [id number] Nov, [facility] [address] [id number] [address] [place] [id number] Nov, [facility], [facility] [address] [id number] [address] [place] [id number] Nov, [facility] [address] [id number] [address] [place] [address], [place] [address] Nov, [facility] [address] [id number] [address] [place] [address], [place] [address] Nov, [facility] [address] [id number] [address] [place] [address], [place] [address] Nov, [facility] [address] [id number] [address] [place] [address], [place] [address] Nov, [facility] [address] [id number] [address] [place] [address], [place] [address] Oct, 2014 [facility] [address] [id number] [address] [place] [address], [place] [address] Oct, 2014 [facility] [address] [id number] [address] [place] [address], [place] [address] Oct, 2014 [facility] [address] [id number] [address] [place] [id number] Oct, 2014 [facility] [address] [id number] [address] [place] [address], [place] [address] Oct, 2014 [facility] [address] [id number] [address] [place] [address], [place] [address] Oct, 2014 [facility] [address] [id number] [address] [place] [address], [place] [address] Oct, 2014 [facility] [address] [id number] [address] [place] [phone] Oct, 2014 [facility] [address] [id number] [address] [place] [id number] Oct, [facility] [address] [id number] [address] [place] [phone] Sep, [facility] [address] [id number] [address] [place] [phone] Sep, [facility] [address] [id number] [address] [place] [address], [place] [address] Sep, [facility] [address] [id number] [address] [place] [address], [place] [address] Sep, [facility] [address] [id number] [address] [place] [address], [place] [address] Sep, [facility] [address] [id number] [address] [place] [address], [place] [address] Sep, [facility] [address] [id number] [address] [place] [address], [place] [address] Sep, [facility] [address] [id number] [address] [place] [address], [place] [address] Sep, [facility] [address] [id number] [address] [place] [address], [place] [address] Sep, [facility] [address] [id number] [address] [place] [address], [place] [address] Sep, [facility] [address] [id number] [address] [place] [address], [place] [address] Sep, [facility] [address] [id number] [address] [place] [address], [place] [address] Sep, [facility] [address] [id number] [address] [place] [address], [place] [address] Sep, [facility] [address] [id number] [address] [place] [address], [place] [address] Sep, [facility] [address] [id number] [address] [place] [address], [place] [address] Sep, [facility] [address] [id number] [address] [place] [address], [place] [address] Sep, [facility] [address] [id number] [address] [place] [address], [place] [address] Aug, [facility] [address] [id number] [address] [place] [address], [place] [address] Aug, [facility] [address] [id number] [facility] [place] [address] Aug, [facility] [address] [id number] [address] [place] [address], [place] [address] Aug, [facility] [address] [id number] [facility] [place] [address] Aug, [facility] [address] [id number] [address] [place] [address], [place] [address] Aug, [facility] [address] [id number] [facility] [place] [address] Aug, [facility] [address] [id number] [address] [place] [address], [place] [address] Aug, [facility] [address] [id number] [address] [place] [address], [place] [address] Aug, [facility] [address] [id number] [address] [place] [address], [place] [address] Aug, [facility] [address] [id number] [address] [place] [address], [place] [address] Aug, [facility] [address] [place] [id number] Aug, [facility] [address] [id number] [address] [place] [address], [place] [address] Aug, [facility] [address] [id number] [address] [place] [address], [place] [address] Aug, [facility] [address] [id number] [address] [place] [address], [place] [address] Aug, [facility] [address] [id number] [address] [place] [address], [place] [address] Aug, [facility] [address] [id number] [address] [place] [address], [place] [address] Aug, [facility] [address] [id number] [address] [place] [address], [place] [address] Aug, [facility] [address] [id number] [address] [place] [address], [place] [address] 08 Aug, 2014 [facility] [address] [id number] [address] [place] [address], [place] [address] Aug, [facility] [address] [id number] [address] [place] [address], [place] [address] Aug, [facility] [address] [id number] [address] [place] [address], [place] [address] Aug, [facility] [address] [id number] [address] [place] [address], [place] [address] Aug, [facility] [address] [id number] [address] [place] [address], [place] [address] Aug, [facility] [address] [id number] [address] [place] [address], [place] [address] Aug, [facility] [address] [id number] [address] [place] [address], [place] [address] Aug, [facility] [address] [id number] [address] [place] [address], [place] [address] Aug, [facility] [address] [id number] [address] [place] [address], [place] [address] Aug, [facility] [address] [id number] [address] [place] [address], [place] [address] Aug, [facility] [address] [id number] [address] [place] [address], [place] [address] Aug, [facility] [address] [id number] [address] [place] [address], [place] [address] Jul, [facility] [address] [id number] [address] [place] [address], [place] [address] Jul, [facility] [address] [id number] [address] [place] [address], [place] [address] Jul, [facility] [address] [id number] [address] [place] [address], [place] [address] Jul, [facility] [address] [id number] [address] [place] [address], [place] [address] Jul, [facility] [address] [id number] [address] [place] [address], [place] [address] Jul, [facility] [address] [id number] [address] [place] [address], [place] [address] Jul, [facility] [address] [id number] [address] [place] [address], [place] [address] Jul, [facility] [address] [id number] [address] [place] [address], [place] [address] Jul, [facility] [address] [id number] [address] [place] [address], [place] [address] Jul, [facility] [address] [id number] [address] [place] [address], [place] [address] Jun, [facility] [address] [id number] [address] [place] [address], [place] [address] Jun, [facility] [address] [id number] [address] [place] [address], [place] [address] Jun, [facility] [address] [id number] [address] [place] [address], [place] [address] Jun, [facility] [address] [id number] [address] [place] [address], [place] [address] Jun, [facility] [address] [id number] [address] [place] [address], [place] [address] Jun, [facility] [address] [id number] [address] [place] [address], [place] [address] Jun, [facility] [address] [id number] [address] [place] [address], [place] [address] Jun, [facility] [address] [id number] [address] [place] [address], [place] [address] Jun, [facility] [address] [id number] [address] [place] [address], [place] [address] Jun, [facility] [address] [id number] [address] [place] [address], [place] [address] 29 May, 2013 [facility] [address] [id number] [address] [place] [address], [place] [address] 29 Sep, 2013 [facility] [address] [id number] [address] [place] [address], [place] [address] 26 Sep, 2013 [facility] [address] [id number] [address] [place] [address], [place] [address] 26 Sep, 2013 [facility] [address] [id number] [address] [place] [address], [place] [address] 17 May, 2013 [facility] [address] [id number] [address] [place] [address], [place] [address] 17 May, 2013 [facility] [address] [id number] [address] [place] [address], [place] [address] 15 May, 2013 [facility] [address] [id number] [address] [place] [address], [place] [address] 15 May, 2013 [facility] [address] [id number] [address] [place] [address], [place] [address] 15 May, 2013 [facility] [address] [id number] [address] [place] [address], [place] [address] 15 May, 2013 [facility] [address] [id number] [address] [place] [id number] 10 Sep, 2013 [facility] [address] [id number] [address] [place] [address], [place] [address] 10 May, 2013 [facility] [address] [id number] [address] [place] [address], [place] [address] 09 Sep, 2013 [facility] [address] [id number] [address] [place] [address], [place] [address] 09 Sep, 2013 [facility] [address] [id number] [facility] [place] [address] May, [facility] [address] [id number] [address] [place] [address], [place] [address] May, [facility] [address] [id number] [facility] [place] [address] Apr, [facility] [address] [id number] [address] [place] [address], [place] [address] Apr, [facility] [address] [id number] [address] [place] [address], [place] [address] Apr, [facility] [address] [id number] [address] [place] [address], [place] [address] Apr, [facility] [address] [id number] [address] [place] [address], [place] [address] Apr, [facility] [address] [id number] [address] [place] [address], [place] [address] Apr, [facility] [address] [id number] [address] [place] [address], [place] [address] Apr, [facility] [address] [id number] [address] [place] [address], [place] [address] Apr, [facility] [address] [id number] [address] [place] [address], [place] [address] Apr, [facility] [address] [id number] [address] [place] [address], [place] [address] Apr, [facility] [address] [id number] [address] [place] [address], [place] [address] Apr, [facility] [address] [id number] [address] [place] [address], [place] [address] Apr, [facility] [address] [id number] [address] [place] [address], [place] [address] Apr, [facility] [address] [id number] [address] [place] [address], [place] [address] Apr, [facility] [address] [id number] [address] [place] [address], [place] [address] Apr, [facility] [address] [id number] [address] [place] [address], [place] [address] Mar, [facility] [address] [id number] [address] [place] [address], [place] [address] Mar, [facility] [address] [id number] [address] [place] [address], [place] [address] Mar, [facility] [address] [id number] [address] [place] [address], [place] [address] Mar, [facility] [address] [id number] [address] [place] [address], [place] [address] Mar, [facility] [address] [id number] [address] [place] [address], [place] [address] Mar, [facility] [address] [id number] [address] [place] [address], [place] [address] Mar, [facility] [address] [id number] [address] [place] [address], [place] [address] Mar, [facility] [address] [id number] [address] [place] [address], [place] [address] Mar, [facility] [address] [id number] [address] [place] [address], [place] [address] Mar, [facility] [address] [id number] [address] [place] [address], [place] [address] Mar, [facility] [address] [id number] [address] [place] [address], [place] [address] Mar, [facility] [address] [id number] [address] [place] [address], [place] [address] Mar, [facility] [address] [id number] [address] [place] [address], [place] [address] Mar, [facility] [address] [id number] [address] [place] [address], [place] [address] Mar, [facility] [address] [id number] [facility] [place] [address] Mar, [facility] [address] [id number] [address] [place] [address], [place] [address] Mar, [facility] [address] [id number] [address] [place] [address], [place] [address] Mar, [facility] [address] [id number] [address] [place] [address], [place] [address] Feb, [facility] [address] [id number] [address] [place] [address], [place] [address] Feb, [facility] [address] [id number] [address] [place] [address], [place] [address] Feb, [facility] [address] [id number] [address] [place] [address], [place] [address] Feb, [facility] [address] [id number] [address] [place] [address], [place] [address] Feb, [facility] [address] [id number] [address] [place] [address], [place] [address] Feb, [facility] [address] [id number] [address] [place] [address], [place] [address] Feb, [facility] [address] [id number] [address] [place] [address], [place] [address] Feb, [facility] [address] [id number] [address] [place] [address], [place] [address] Feb, [facility] [address] [id number] [address] [place] [address], [place] [address] Feb, [facility] [address] [id number] [address] [place] [address], [place] [address] Feb, [facility] [address] [id number] [address] [place] [address], [place] [address] Feb, [facility] [address] [id number] [facility] [place] [address] Feb, [facility] [address] [id number] [facility] [place] [address] Feb, [facility] [address] [id number] [facility] [place] [address] January, [facility] [address] [id number] [facility] [place] [address] January, [facility] [address] [id number] [facility] [place] [address] January, [facility] [address] [id number] [address] [place] [address], [place] [address] January, [facility] [address] [id number] [address] [place] [address], [place] [address] January, [facility] [address] [id number] [address] [place] [address], [place] [address] January, [facility] [address] [id number] [address] [place] [address], [place] [address] January, [facility] [address] [id number] [address] [place] [address], [place] [address] January, [facility] [address] [id number] [address] [place] [address], [place] [address] January, [facility] [address] [id number] [address] [place] [address], [place] [address] January, [facility] [address] [id number] [address] [place] [address], [place] [address] January, [facility] [address] [id number] [address] [place] [address], [place] [address] January, [facility] [address] [id number] [address] [place] [address], [place] [address] January, [facility] [address] [id number] [address] [place] [address], [place] [address] January, [facility] [address] [id number] [facility] [place] [address] Dec, [facility] [address] [id number] [facility] [place] [address] Dec, [facility] [address] [id number] [address] [place] [address], [place] [address] Dec, [facility] [address] [id number] [address] [place] [address], [place] [address] Dec, [facility] [address] [id number] [address] [place] [address], [place] [address] Dec, [facility] [address] [id number] [address] [place] [address], [place] [address] Dec, [facility] [address] [id number] [address] [place] [address], [place] [address] Dec, [facility] [address] [id number] [address] [place] [address], [place] [address] Dec, [facility] [address] [id number] [address] [place] [address], [place] [address] Dec, [facility] [address] [id number] [address] [place] [address], [place] [address] Dec, [facility] [address] [id number] [address] [place] [address], [place] [address] Nov, [facility] [address] [id number] [address] [place] [address], [place] [address] Nov, [facility] [address] [id number] [address] [place] [address], [place] [address] Nov, [facility] [address] [id number] [address] [place] [address], [place] [address] Nov, [facility] [address] [id number] [address] [place] [address], [place] [address] Nov, [facility] [address] [id number] [address] [place] [address], [place] [address] 08 Nov, 2013 [facility] [address] [id number] [address] [place] [address], [place] [address] 05 Nov, 2013 [facility] [address] [id number] [address] [place] [address], [place] [address] 05 Nov, 2013 [facility] [address] [id number] [address] [place] [address], [place] [address] Nov, [facility] [address] [id number] [address] [place] [address], [place] [address] Nov, [facility] [address] [id number] [address] [place] [address], [place] [address] Oct, [facility] [address] [id number] [address] [place] [address], [place] [address] Oct, [facility] [address] [id number] [address] [place] [address], [place] [address] Oct, [facility] [address] [id number] [address] [place] [address], [place] [address] Oct, [facility] [address] [id number] [address] [place] [address], [place] [address] 20 Oct, 2013 [facility] [address] [id number] [address] [place] [address], [place] [address] 20 Oct, 2013 [facility] [address] [id number] [address] [place] [address], [place] [address] 14 Oct, 2013 [facility] [address] [id number] [address] [place] [address], [place] [address] 14 Oct, 2013 [facility] [address] [id number] [address] [place] [address], [place] [address] 05 Oct, 2013 [facility] [address] [id number] [address] [place] [address], [place] [address] 05 Oct, 2013 [facility] [address] [id number] [address] [place] [address], [place] [address] Oct, [facility] [address] [id number] [address] [place] [address], [place] [address] Oct, [facility] [address] [id number] [address] [place] [address], [place] [address] Oct, [facility] [address] [id number] [address] [place] [address], [place] [address] Oct, [facility] [address] [id number] [address] [place] [address], [place] [address] Sep, [facility] [address] [id number] [address] [place] [address], [place] [address] Sep, [facility] [address] [id number] [address] [place] [address], [place] [address] Sep, [facility] [address] [id number] [address] [place] [address], [place] [address] Sep, [facility] [address] [id number] [address] [place] [address], [place] [address] Sep, [facility] [address] [id number] [address] [place] [address], [place] [address] Sep, [facility] [address] [id number] [address] [place] [address], [place] [address] Sep, [facility] [address] [id number] [address] [place] [address], [place] [address] Sep, [facility] [address] [id number] [address] [place] [address], [place] [address] Sep, [facility] [address] [id number] [address] [place] [address], [place] [address] Sep, [facility] [address] [address] [id number] [address] [place] [address], [place] [address] Aug, [facility] [address] [id number] [address] [place] [address], [place] [address] Aug, [facility] [address] [id number] [address] [place] [address], [place] [address] Jul, [facility] [address] [id number] [address] [place] [address], [place] [address] Jul, [facility] [address] [id number] [address] [place] [address], [place] [address] Jul, [facility] [address] [id number] [address] [place] [address], [place] [address] Jul, [facility] [address] [id number] [address] [place] [address], [place] [address] Jul, [facility] [address] [id number] [address] [place] [address], [place] [address] Jul, [facility] [address] [id number] [address] [place] [address], [place] [address] Jul, [facility] [address] [id number] [address] [place] [address], [place] [address] Jul, [facility] [address] [id number] [address] [place] [address], [place] [address] Jul, [facility] [address] [id number] [address] [place] [address], [place] [address] Jul, [facility] [address] [id number] [address] [place] [address], [place] [address] Jul, [facility] [address] [id number] [address] [place] [address], [place] [address] Jul, [facility] [address] [id number] [address] [place] [address], [place] [address] Jul, [facility] [address] [id number] [address] [place] [address], [place] [address] Jul, [facility] [address] [id number] [address] [place] [address], [place] [address] Jul, [facility] [address] [id number] [address] [place] [address], [place] [address] Jul, [facility] [address] [id number] [address] [place] [address], [place] [address] Jul, 2012 [facility] [address] [id number] [address] [place] [address], [place] [address] Jul, [facility] [address] [id number] [address] [place] [address], [place] [address] Jul, 2012 [facility] [address] [id number] [address] [place] [address], [place] [address] Jun, 2012 [facility] [address] [id number] [address] [place] [address], [place] [address] Jun, 2012 [facility] [address] [id number] [address] [place] [address], [place] [address] Jun, 2012 [facility] [address] [id number] [address] [place] [address], [place] [address] Jun, 2012 [facility] [address] [id number] [address] [place] [phone] Jun, [facility] [address] [id number] [address] [place] [phone] Jun, [facility] [address] [id number] [address] [place] [phone] Jun, [facility] [address] [id number] [address] [place] [phone] Jun, [facility] [address] [id number] [address] [place] [phone] Jun, [facility] [address] [id number] [address] [place] [phone] Jun, [facility] [address] [id number] [address] [place] [phone] Jun, [facility] [address] [id number] [address] [place] [phone] May, [facility] [address] [id number] [address] [place] [phone] 25 May, 2013 [facility] [address] [id number] [address] [place] [address], [place] [address] 19 May, 2012 [facility] [address] [id number] [address] [place] [address], [place] [address] 17 May, 2013 [facility] [address] [id number] [address] [place] [address], [place] [address] 11 May, 2012 [facility] [address] [id number] [address] [place] [address], [place] [address] 10 May, 2012 [facility] [address] [id number] [address] [place] [address], [place] [address] 09 May, 2013 [facility] [address] [id number] [address] [place] [address], [place] [address] 05 May, 2013 [facility] [address] [id number] [address] [place] [address], [place] [address] Apr, [facility] [address] [id number] [address] [place] [address], [place] [address] Apr, [facility] [address] [id number] [address] [place] [address], [place] [address] Apr, [facility] [address] [id number] [address] [place] [address], [place] [address] Apr, [facility] [address] [id number] [address] [place] [address], [place] [address] Apr, [facility] [address] [id number] [address] [place] [address], [place] [address] Mar, [facility] [address] [id number] [address] [place] [address], [place] [address] Mar, [facility] [address] [id number] [address] [place] [address], [place] [address] Mar, [facility] [address] [id number] [address] [place] [address], [place] [address] Mar, [facility] [address] [id number] [facility] [place] [address] Mar, [facility] [address] [id number] [address] [place] [address], [place] [address] Mar, [facility] [address] [id number] [address] [place] [address], [place] [address] Mar, [facility] [address] [id number] [address] [place] [address], [place] [address] Mar, [facility] [address] [id number] [address] [place] [address], [place] [address] Feb, [facility] [address] [id number] [address] [place] [address], [place] [address] Feb, [facility] [address] [id number] [address] [place] [address], [place] [address] January, [facility] [address] [id number] [address] [place] [address], [place] [address] January, [facility] [address] [id number] [address] [place] [address], [place] [address] Dec, [facility] [address] [id number] [address] [place] [address], [place] [address] Dec, [facility] [address] [id number] [address] [place] [address], [place] [address] Nov, [facility] [address] [id number] [address] [place] [address], [place] [address] Nov, [facility] [address] [id number] [address] [place] [address], [place] [address] Nov, [facility] [address] [id number] [address] [place] [address], [place] [address] Nov, [facility] [address] [id number] [address] [place] [address], [place] [address] Oct, [facility] [address] [id number] [address] [place] [address], [place] [address] Oct, [facility] [address] [id number] [address] [place] [address], [place] [address] Oct, [facility] [address] [id number] [address] [place] [address], [place] [address] Oct, [facility] [address] [id number] [address] [place] [address], [place] [address] 16 Oct, 2012 [facility] [address] [id number] [address] [place] [address], [place] [address] 14 Oct, 2012 [facility] [address] [id number] [address] [place] [address], [place] [address] 08 Oct, 2012 [facility] [address] [id number] [address] [place] [address], [place] [address] 07 Oct, 2012 [facility] [address] [id number] [address] [place] [address], [place] [address] 03 Oct, 2012 [facility] [address] [id number] [address] [place] [address], [place] [address] Sep, [facility] [address] [id number] [address] [place] [address], [place] [address] Sep, [facility] [address] [id number] [address] [place] [address], [place] [address] Sep, [facility] [address] [id number] [address] [place] [address], [place] [address] Sep, [facility] [address] [id number] [address] [place] [address], [place] [address] Sep, [facility] [address] [id number] [address] [place] [address], [place] [address] Sep, [facility] [address] [id number] [address] [place] [address], [place] [address] 09 Sep, 2012 [facility] [address] [id number] [address] [place] [address], [place] [address] 08 Sep, 2012 [facility] [address] [id number] [address] [place] [address], [place] [address] 31 Aug, 2012 [facility] [address] [id number] [address] [place] [address], [place] [address] Aug, [facility] [address] [id number] [address] [place] [address], [place] [address] Aug, [facility] [address] [id number] [address] [place] [address], [place] [address] Aug, [facility] [address] [id number] [address] [place] [address], [place] [address] Aug, [facility] [address] [id number] [address] [place] [address], [place] [address] Aug, [facility] [address] [id number] [address] [place] [address], [place] [address] Aug, [facility] [address] [id number] [address] [place] [address], [place] [address] Aug, [facility] [address] [id number] [address] [place] [address], [place] [address] Jul, [facility] [address] [id number] [address] [place] [address], [place] [address] Jul, [facility] [address] [id number] [address] [place] [address], [place] [address] Jul, [facility] [address] [id number] [address] [place] [address], [place] [address] Jul, [facility] [address] [id number] [address] [place] [address], [place] [address] Jul, [facility] [address] [id number] [address] [place] [address], [place] [address] Jul, [facility] [address] [id number] [address] [place] [address], [place] [address] Jun, [facility] [address] [id number] [address] [place] [address], [place] [address] Jun, [facility] [address] [id number] [address] [place] [address], [place] [address] Jun, [facility] [address] [id number] [address] [place] [address], [place] [address] Jun, [facility] [address] [id number] [address] [place] [address], [place] [address] Jun, [facility] [address] [id number] [address] [place] [address], [place] [address] Jun, [facility] [address] [id number] [address] [place] [address], [place] [address] Jun, [facility] [address] [id number] [address] [place] [address], [place] [address] Jun, [facility] [address] [id number] [address] [place] [address], [place] [address] Jun, [facility] [address] [id number] [address] [place] [address], [place] [address] 26 May, 2012 [facility] [address] [id number] [address] [place] [address], [place] [address] 24 May, 2012 [facility] [address] [id number] [address] [place] [address], [place] [address] 18 May, 2012 [facility] [address] [id number] [address] [place] [address], [place] [address] 30 Apr, 2012 [facility] [address] [id number] [address] [place] [address], [place] [address] 29 Apr, 2012 [facility] [address] [id number] [address] [place] [address], [place] [address] 18 Apr, 2012 [facility] [address] [id number] [address] [place] [address], [place] [address] 14 Apr, 2012 [facility] [address] [id number] [address] [place] [address], [place] [address] 10 Apr, 2012 [facility] [address] [id number] [address] [place] [address], [place] [address] Apr, [facility] [address] [id number] [address] [place] [address], [place] [address] Mar, [facility] [address] [id number] [address] [place] [address], [place] [address] Mar, [facility] [address] [id number] [address] [place] [address], [place] [address] Mar, [facility] [address] [id number] [address] [place] [address], [place] [address] Mar, [facility] [address] [id number] [address] [place] [address], [place] [address] Feb, [facility] [address] [id number] [address] [place] [address], [place] [address] Feb, [facility] [address] [id number] [address] [place] [address], [place] [address] Feb, [facility] [address] [id number] [address] [place] [address], [place] [address] Feb, [facility] [address] [id number] [address] [place] [address], [place] [address] Feb, [facility] [address] [id number] [address] [place] [address], [place] [address] January, [facility] [address] [id number] [address] [place] [address], [place] [address] January, [facility] [address] [id number] [address] [place] [address], [place] [address] January, [facility] [address] [id number] [address] [place] [address], [place] [address] January, [facility] [address] [id number] [address] [place] [address], [place] [address] January, [facility] [address] [id number] [address] [place] [address], [place] [address] January, [facility] [address] [id number] [address] [place] [address], [place] [address] Dec, [facility] [address] [id number] [address] [place] [address], [place] [address] 24 Dec, 2011 [facility] [address] [id number] [address] [place] [address], [place] [address] 17 Dec, 2011 [facility] [address] [id number] [address] [place] [address], [place] [address] Dec, [facility] [address] [id number] [address] [place] [address], [place] [address] Dec, [facility] [address] [id number] [address] [place] [address], [place] [address] 27 Nov, 2011 [facility] [address] [id number] [address] [place] [address], [place] [address] 14 Nov, 2011 [facility] [address] [id number] [address] [place] [address], [place] [address] Nov, [facility] [address] [id number] [address] [place] [address], [place] [address] Nov, [facility] [address] [id number] [address] [place] [address], [place] [address] 29 Oct, 2011 [facility] [address] [id number] [address] [place] [address], [place] [address] Oct, [facility] [address] [id number] [address] [place] [address], [place] [address] 24 Oct, 2011 [facility] [address] [id number] [address] [place] [address], [place] [address] 13 Oct, 2011 [facility] [address] [id number] [address] [place] [address], [place] [address] 08 Oct, 2011 [facility] [address] [id number] [address] [place] [address], [place] [address] Sep, [facility] [address] [id number] [address] [place] [address], [place] [address] Sep, [facility] [address] [id number] [address] [place] [address], [place] [address] Sep, [facility] [address] [id number] [address] [place] [address], [place] [address] Sep, [facility] [address] [id number] [address] [place] [address], [place] [address] Sep, [facility] [address] [id number] [address] [place] [address], [place] [address] Sep, [facility] [address] [id number] [address] [place] [address], [place] [address] Aug, [facility] [address] [id number] [address] [place] [address], [place] [address] Aug, [facility] [address] [id number] [address] [place] [address], [place] [address] Aug, [facility] [address] [id number] [address] [place] [address], [place] [address] Jul, [facility] [address] [id number] [address] [place] [address], [place] [address] Jul, [facility] [address] [id number] [address] [place] [address], [place] [address] Jul, [facility] [address] [id number] [address] [place] [address], [place] [address] Jul, [facility] [address] [id number] [address] [place] [address], [place] [address] Jun, [facility] [address] [id number] [address] [place] [address], [place] [address] Jun, [facility] [address] [id number] [address] [place] [address], [place] [address] Jun, [facility] [address] [id number] [address] [place] [address], [place] [address] Jun, [facility] [address] [id number] [address] [place] [address], [place] [address] 10 Jun, 2011 [facility] [address] [id number] [address] [place] [address], [place] [address] 10 Jun, 2011 [facility] [address] [id number] [address] [place] [address], [place] [address] 11 Mar, 2011 [facility] [address] [id number] [address] [place] [address], [place] [address] 18 Dec, 2010 [facility] [address] [id number] [address] [place] [address], [place] [address] 11 Dec, 2010 [facility] [address] [id number] [address] [place] [address], [place] [address] 18 Nov, 2010 [facility] [address] [id number] [address] [place] [address], [place] [address] 16 Nov, 2010 [facility] [address] [id number] [address] [place] [address], [place] [address] 10 Sep, 2010 [facility] [address] [id number] [address] [place] [address], [place] [address] 31 Aug, 2010 [facility] [address] [id number] [address] [place] [address], [place] [address] 29 Aug, 2010 [facility] [address] [id number] [address] [place] [address], [place] [address] 29 Aug, 2010 [facility] [address] [id number] [address] [place] [address], [place] [address] 29 Aug, 2010 [facility] [address] [id number] [address] [place] [address], [place] [address] 27 Aug, 2010 [facility] [address] [id number] [address] [place] [address], [place] [address] 14 Aug, 2010 [facility] [address] [id number] [address] [place] [address], [place] [address] 08 Aug, 2010 [facility] [address] [id number] [address] [place] [address], [place] [address] 08 Aug, 2010 [facility] [address] [id number] [address] [place] [address], [place] [address] Aug, [facility] [address] [id number] [address] [place] [address], [place] [address] Aug, [facility] [address] [id number] [address] [place] [address], [place] [address] Aug, [facility] [address] [id number] [address] [place] [phone] Aug, [facility] [address] [id number] [address] [place] [address], [place] [address] Jul, [facility] [address] [id number] [address] [place] [id number] Jul, [facility] [address] [id number] [address] [place] [address], [place] [address] Jul, [facility] [address] [id number] [address] [place] [phone] Jul, [facility] [address] [id number] [address] [place] [id number] Jul, [facility] [address] [id number] [address] [place] [phone] Jul, [facility] [address] [id number] [address] [place] [id number] 24 Jun, 2010 [facility] [address] [id number] [address] [place] [phone] Jun, [facility] [address] [id number] [address] [place] [phone] Jun, [facility] [address] [id number] [address] [place] [phone] Jun, [facility] [address] [id number] [address] [place] [id number] Apr, [facility] [address] [id number] [address] [place] [address], [place] [address] Mar, [facility] [address] [id number] [address] [place] [address], [place] [address] 17 Feb, 2010 [facility] [address] [id number] [address] [place] [address], [place] [address] January, [facility] [address] [id number] [address] [place] [address], [place] [address] 15 Dec, 2009 [facility] [address] [id number] [address] [place] [address], [place] [address] Nov, [facility] [address] [id number] [address] [place] [address], [place] [address] 31 Aug, 2009 [facility] [address] [id number] [address] [place] [address], [place] [address] Aug, [facility] [address] [id number] [address] [place] [address], [place] [address] Aug, [facility] [address] [id number] [address] [place] [address], [place] [address] Jul, [facility] [address] [id number] [address] [place] [address], [place] [address] Jul, [facility] [address] [id number] [address] [place] [address], [place] [address] 07 Jul, 2009 [facility] [address] [id number] [address] [place] [address], [place] [address] 30 Jun, 2009 [facility] [address] [id number] [address] [place] [id number] 29 Jun, 2009 [facility] [address] [id number] [address] [place] [address], [place] [id number] 26 Jun, 2009 [facility] [address] [id number] [address] [place] [address], [place] [id number] 22 Jun, 2009 [facility] [address] [id number] [address] [place] [id number] Jun, [facility] [address] [facility] [id number] [address] [place] [phone] Jun, [facility] [address] [facility] [id number] [address] [place] [phone] Apr, [facility] [address] [facility] [id number] [address] [place] [phone] Apr, [facility] [address] [facility] [id number] [address] [place] [phone] Feb, [facility] [address] [facility] [id number] [address] [place] [phone] January, [facility] [address] [facility] [id number] [address] [place] [phone] Dec, IMMUNIZATIONS No Known Immunizations SOCIAL HISTORY [...] inability to urinate 09/16/15 Hospitalization History [facility] 1999's Hospitalization History hyperkalemia 10/2017 Hospitalization History fluid in lung
--- OUTSIDE RECORDS SUMMARY | 2020-03-01 18:21 | XMS REPORT ---
Author Michele Fuentes Organization [facility], [place] Address [address] [place] [address] Care Team Providers Care Insurance Assistant Name Role Phone TOBY ROSELINE Unavailable PROBLEMS Type Condition ICD9-CM Code MQR50-IB Code Onset Dates Condition S tatus SNOMED Code Problem Cough R05 Active 60144529 Problem Benign prostatic hyperplasia with lower urinary tract symptoms, unspecified morphology N40.1 Active 67556 6007 Problem Eustachian tube dysfunction, unspecified laterality H69.80 Active 56370230 Problem Chronic pain G89.29 Active 3930066 1 Problem DM neuro manif type II E11.49 Active 40349099 Problem Diabetes E11.9 Active 56972743 Problem Leukocytosis D72.829 Active 9966883 06 Problem Falling R29.6 Active 057302809 Problem Pressure ulcer of other site, stage 3 L89.893 Active 645131036 Problem 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 Active 423458284 Problem Eye exam abnormal R93.8 Active 16 2112873 Problem Dysuria R30.0 Active 79468837 Problem Hypokalemia E87.6 Active 18013164 Problem Morbid obesity E66.01 Active 20949 6002 Problem Anxiety F41.9 Active 23133601 Problem Diabetic polyneuropathy associated with type 2 d iabetes mellitus E11.42 Active 37510414 Problem Essential hypertension I10 Active 34341418 Problem Bilateral primary osteoarthritis of knee M17.0 Active 938879617 Problem Polyneuropathy associated with underlying disease G63 Active 554776996 Problem Anemia of chronic illness D63.8 Acti ve 713754579 Problem Lymphocytosis D72.820 Active 495904 09 Problem Retinal edema H35.81 Active 097172 6 Problem Chronic lymphocytic leukemia C91.10 A ctive 63223148 Problem Bipolar disorder, in partial remission, most rec ent episode depressed F31.75 Active 07426244 Problem Pure hypercholesterolemia E78.00 Acti ve 611480365 Problem Primary osteoarthritis of right knee M17.11 Active [id number] Problem Bipolar disorder F31.9 Active 137 27520 Problem Bipolar I disorder, most recent episode (or curr ent) mixed, moderate F31.62 Active 03148718 Problem Chronic diastolic (congestive) heart failure I50.3 2 Active 202797734 Problem Reactive airway disease J45.909 Active 734824492679 Problem Insomnia, unspecified type G47.00 Act sharon 486226470 Problem Other chronic pain G89.29 Active 8 0808657 Problem Other iron deficiency anemia D50.8 A ctive 62295284 Problem Mild cognitive impairment G31.84 Acti ve 658108276 Problem Skin cancer C44.90 Active 88798717 7 ALLERGIES No Information ENCOUNTERS Encounter Location Date Diagnosis [place] [address] [address] [facility] [id number] [address] [place] [id number] Apr, [place] [address] [place] [id number] [address] [place] [id number] Mar, Bipolar disorder F31.9 and C hronic pain G89.29 [place] [address] [place] [id number] [address] [place] [id number] Feb, Bipolar disorder F31.9 [place] [address] [facility] [id number] [address] [place] [id number] Feb, Cellulitis of right upper ex tremity L03.113 and Skin abrasion T14.8XXA [place] [address] [facility] [id number] [address] [place] [id number] Feb, Bipolar disorder, in partial remission, most recent episode depressed F31.75 and Mild cognitive impairment G31.84 [place] [address] [facility] [id number] [address] [place] [id number] Feb, Chronic pain G89.29 [place] [address] [facility] [id number] [address] [place] [id number] Feb, Bipolar disorder, in partial remission, most recent episode depressed F31.75 and Mild cognitive impairment G31.84 [place] [address] [place] [id number] [address] [place] [id number] January, Bipolar disorder, in partial remission, most recent episode depressed F31.75 and Mild cognitive impairment G31.84 [facility] [place] [address] [id number] [address] [place] [id number] January, Chronic pain G89.29 and Bipo lar disorder F31.9 [facility] [place] [address] [id number] [address] [place] [id number] January, Bipolar disorder, in partial remission, most recent episode depressed F31.75 and Mild cognitive impairment G31.84 [facility] [place] [address] [id number] [address] [place] [id number] Dec, [facility] [place] [address] [id number] [address] [place] [id number] Dec, Chronic pain G89.29 and Bipo lar disorder F31.9 [facility] [place] [address] [id number] [address] [place] [id number] Dec, Edema of both lower extremit ies R60.0 [facility] [place] [address] [id number] [address] [place] [id number] Dec, Bipolar disorder F31.9 [facility] [place] [address] [id number] [address] [place] [id number] Dec, Bipolar disorder, in partial remission, most recent episode depressed F31.75 and Mild cognitive impairment G31.84 [facility] [place] [address] [id number] [address] [place] [id number] Nov, [facility] [place] [address] [id number] [address] [place] [id number] Nov, Chronic pain G89.29 [facility] [place] [address] [id number] [address] [place] [id number] Nov, Bipolar disorder, in partial remission, most recent episode depressed F31.75 and Mild cognitive impairment G31.84 [facility] [place] [address] [id number] [address] [place] [id number] Nov, Bipolar disorder F31.9 [place] [id number] [address] [place] [id number] 04 Nov, 2018 Encounter for Medicare hilary [facility] wellness exam Z00.00 ; Polyneuropathy associated with [...] unspecified morphology N40.1 and Essential hypertension I10 [address] [address] Oct, Chronic pain G89.[address] [id number] 18 Oct, 2018 Diabetes E11.9 [place] [address] [place] [id number] [place] [phone] Oct, Bipolar I disorder, most rec ent episode (or current) mixed, moderate F31.62 and Mild cognitive impairment G31.84 [place] [address] [place] [id number] [address] [place] [phone] Oct, Bipolar I disorder, most rec ent episode (or current) mixed, moderate F31.62 and Mild cognitive impairment G31.84 [place] [address] [place] [id number] [address] [place] [id number] Sep, Bipolar I disorder, most rec ent episode (or current) mixed, moderate F31.62 and Mild cognitive impairment G31.84 [place] [address] [place] [id number] [address] [place] [phone] Sep, [place] [id number] [address] [place] [id number] Sep, Diabetes E11.9 ; Hypoxia R09 .02 ; Hyperglycemia R73.9 ; Therapeutic drug monitoring Z51.81 ; BMI 50.0-59.9, adult Z68.43 and Skin cancer C44.90 [place] [address] [facility] [id number] [address] [place] [id number] Sep, Chronic pain G89.29 [facility] [place] [address] [facility] [id number] [address] [place] [id number] Sep, Bipolar I disorder, most rec ent episode (or current) mixed, moderate F31.62 [place] [address] [facility] [id number] [address] [place] [id number] Sep, [place] [address] [place] [id number] [address] [place] [phone] Sep, [place] [address] [place] [id number] [address] [place] [id number] Aug, Chronic pain G89.29 [place] [address] [place] [id number] [address] [place] [id number] Aug, Bipolar I disorder, most rec ent episode (or current) mixed, moderate F31.62 [place] [address] [place] [id number] [address] [place] [phone] Aug, Bipolar I disorder, most rec ent episode (or current) mixed, moderate F31.62 and Mild cognitive impairment G31.84 [place] [address] [place] [id number] [address] [place] [id number] Jul, [place] [address] [facility] [id number] [address] [place] [id number] Jul, Chronic pain G89.29 [place] [address] [place] [id number] [address] [place] [id number] Jul, Bipolar I disorder, most rec ent episode (or current) mixed, moderate F31.62 and Mild cognitive impairment G31.84 [place] [address] [place] [id number] [address] [place] [id number] Jul, Bipolar I disorder, most rec ent episode (or current) mixed, moderate F31.62 and MCI (mild cognitive impairment) G31.84 [facility] [place] [address] [id number] [address] [place] [id number] Jul, [facility] [place] [address] [id number] [address] [place] [phone] Jul, [facility] [place] [address] [id number] [address] [place] [id number] Jul, Bipolar I disorder, most rec ent episode (or current) mixed, moderate F31.62 [facility] [place] [address] [id number] [address] [place] [id number] Jul, Chronic pain G89.29 [facility] [place] [address] [id number] [address] [place] [id number] Jun, Bipolar I disorder, most rec ent episode (or current) mixed, moderate F31.62 [facility] [place] [address] [id number] [address] [place] [id number] Jun, Pre-procedure lab exam Z01.8 12 [facility] [place] [address] [facility] [id number] [address] [place] [id number] Jun, [facility] [address] [id number] [place] [id number] Jun, [facility] [place] [address] [facility] [id number] [address] [place] [id number] Jun, [facility] [place] [address] [id number] [address] [place] [id number] Jun, Forgetfulness R68.89 ; Pre-s yncope R55 ; Localized edema R60.0 ; Other iron deficiency anemia D50.8 and BMI 50.0-59.9, adult Z68.43 [facility] [place] [address] [id number] [address] [place] [id number] Jun, Chronic pain G89.29 [facility] [place] [address] [facility] [id number] [address] [place] [id number] Jun, Chronic pain G89.29 [facility] [place] [address] [facility] [id number] [address] [place] [phone] Jun, Bipolar I disorder, most rec ent episode (or current) mixed, moderate F31.62 [facility] [place] [address] [facility] [id number] [address] [place] [id number] May, Chronic pain G89.29 [facility] [place] [address] [facility] [id number] [address] [place] [id number] Apr, [facility] [place] [address] [facility] [id number] [address] [place] [id number] Apr, Chronic pain G89.29 [facility] [place] [address] [facility] [id number] [address] [place] [id number] Apr, Primary osteoarthritis of ri ght knee M17.11 [place] [address] [place] [id number] [address] [place] [id number] Mar, [facility] [place] [address] [facility] [id number] [address] [place] [id number] Mar, BMI 50.0-59.9, adult Z68.43 and Bipolar disorder, in partial remission, most recent episode depressed F31.75 [place] [address] [place] [id number] [address] [place] [id number] Mar, Diabetes E11.9 ; Pure hyperc holesterolemia E78.00 ; Essential hypertension I10 ; Nausea with vomiting, unspecified R11.2 and Headache, unspecified headache type R51 [facility] [place] [address] [facility] [id number] [address] [place] [id number] Mar, Bipolar I disorder, most rec ent episode (or current) mixed, moderate F31.62 [place] [address] [facility] [id number] [address] [place] [id number] Mar, Bipolar I disorder, most rec ent episode (or current) mixed, moderate F31.62 [place] [address] [id number] [address] [place] [id number] Mar, Chronic pain G89.29 [facility] [place] [address] [id number] [address] [place] [phone] Mar, Bipolar I disorder, most rec ent episode (or current) mixed, moderate F31.62 [facility] [place] [address] [facility] [id number] [address] [place] [id number] Feb, Bipolar I disorder, most rec ent episode (or current) mixed, moderate F31.62 [facility] [place] [address] [facility] [id number] [address] [place] [id number] Feb, Chronic pain G89.29 [facility] [place] [address] [facility] [id number] [address] [place] [id number] Feb, Decubitus ulcer of right josselin t, stage 3 L89.893 and BMI 50.0-59.9, adult Z68.43 [facility] [place] [address] [facility] [id number] [address] [place] [id number] Feb, Bipolar I disorder, most rec ent episode (or current) mixed, moderate F31.62 [facility] [place] [address] [facility] [id number] [address] [place] [id number] Feb, [facility] [place] [address] [facility] [id number] [address] [place] [phone] January, [facility] [place] [address] [facility] [id number] [address] [place] [id number] January, Chronic pain G89.29 [facility] [place] [address] [id number] [address] [place] [id number] January, Bipolar I disorder, most rec ent episode (or current) mixed, moderate F31.62 [facility] [place] [address] [facility] [id number] [address] [place] [id number] January, Bipolar I disorder, most rec ent episode (or current) mixed, moderate F31.62 [facility] [place] [address] [place] [id number] [address] [place] [id number] Dec, Bipolar I disorder, most rec ent episode (or current) mixed, moderate F31.62 and BMI 50.0-59.9, adult Z68.43 [place] [address] [id number] Dec, Bipolar I disorder, most rec ent episode (or current) mixed, moderate F31.62 [place] [address] [address] Dec, Chronic pain G89.29 [place] [address] [address] Dec, DM neuro manif type II E11.4 9 ; Right flank pain R10.9 ; local [employer] 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 Z79.891 ; Encounter for medication monitoring Z51.81 and BMI 50.0-59.9, adult Z68.43 [place] [address] [address] Dec, Bipolar I disorder, most rec ent episode (or current) mixed, moderate F31.62 [place] [address] [address] Nov, Bipolar I disorder, most rec ent episode (or current) mixed, moderate F31.62 [place] [address] [place] [id number] [address] [place] [id number] Nov, Chronic pain G89.29 [place] [address] [place] [id number] [place] [phone] Nov, Bipolar I disorder, most rec ent episode (or current) mixed, moderate F31.62 [place] [address] [id number] Nov, Hypokalemia E87.6 [place] [address] [place] [id number] [place] [id number] Nov, Bipolar I disorder, most rec ent episode (or current) mixed, moderate F31.62 [facility] [place] [address] [facility] [id number] [address] [place] [phone] Oct, Chronic pain G89.29 [facility] [place] [address] [facility] [id number] [address] [place] [phone] Oct, BMI 50.0-59.9, adult Z68.43 and Bipolar I disorder, most recent episode (or current) mixed, moderate F31.62 [facility] [place] [address] [facility] [id number] [address] [place] [phone] Oct, Bipolar I disorder, most rec ent episode (or current) mixed, moderate F31.62 [place] [address] [facility] [id number] [address] [place] [phone] Oct, [place] [address] [place] [id number] [place] [phone] Oct, Hypokalemia E87.6 [place] [address] [facility] [id number] [address] [place] [phone] Oct, DM neuro manif type II E11.4 9 [place] [address] [facility] [id number] [place] [id number] Oct, Bipolar I disorder, most rec ent episode (or current) mixed, moderate F31.62 [place] [address] [place] [id number] [address] [place] [phone] Oct, Bipolar I disorder, most rec ent episode (or current) mixed, moderate F31.62 [place] [address] [facility] [id number] [address] [place] [id number] 14 Oct, 2017 Hyperkalemia E87.5 ; Falling R29.6 ; BMI 50.0-59.9, adult Z68.43 and Acute left ankle pain M25.572 [place] [address] [facility] [id number] [address] [place] [id number] Oct, DM neuro manif type II E11.4 9 [place] [address] [address] Oct, [place] [address] [address] Sep, Chronic pain G89.29 [place] [address] [address] Sep, [place] [address] [address] Sep, Bilateral primary osteoarthr itis of knee M17.0 [place] [address] [address] Sep, Generalized edema R60.1 [place] [address] [address] Sep, Bipolar I disorder, most rec ent episode (or current) mixed, moderate F31.62 [place] [address] [address] Sep, Hypoxia R09.02 ; Other hyper volemia E87.79 ; Diabetes E11.9 ; Retinal edema H35.81 ; Hypokalemia E87.6 ; 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 ; Anemia of chronic illness D63.8 and BMI 50.0- 59.9, adult Z68.43 [place] [address] [address] Sep, [place] [address] [address] Sep, Bipolar I disorder, most rec ent episode (or current) mixed, moderate F31.62 [place] [address] [address] Aug, Chronic pain G89.29 [place] [address] [address] Aug, Generalized edema R60.1 [facility] [place] [address] [facility] [id number] [address] [place] [phone] Aug, [facility] [place] [address] [facility] [id number] [address] [place] [phone] Aug, [facility] [place] [address] [place] [id number] [address] [place] [id number] Aug, Bipolar I disorder, most rec ent episode (or current) mixed, moderate F31.62 [facility] [place] [address] [facility] [id number] [address] [place] [id number] Aug, Bipolar I disorder, most rec ent episode (or current) mixed, moderate F31.62 [facility] [place] [address] [place] [id number] [address] [place] [id number] Aug, Chronic pain G89.29 [facility] [place] [address] [place] [id number] [address] [place] [id number] Jul, Bipolar I disorder, most rec ent episode (or current) mixed, moderate F31.62 [facility] [place] [address] [place] [id number] [address] [place] [id number] Jul, Bipolar I disorder, most rec ent episode (or current) mixed, moderate F31.62 and BMI 60.0-69.9, adult Z68.44 [facility] [place] [address] [place] [id number] [address] [place] [id number] Jul, Bipolar I disorder, most rec ent episode (or current) mixed, moderate F31.62 [facility] [place] [address] [facility] [id number] [address] [place] [id number] Jul, Chronic pain G89.29 [facility] [place] [address] [facility] [id number] [address] [place] [id number] Jul, Bipolar I disorder, most rec ent episode (or current) mixed, moderate F31.62 [facility] [place] [address] [place] [id number] [address] [place] [id number] Jun, Polyneuropathy associated wi th underlying disease G63 and Diabetes E11.9 [facility] [place] [address] [id number] [address] [place] [phone] Jun, Bipolar I disorder, most rec ent episode (or current) mixed, moderate F31.62 [facility] [place] [address] [id number] [address] [place] [id number] 09 Jun, 2017 Chronic pain G89.29 [facility] [place] [address] [id number] [address] [place] [id number] May, Bipolar I disorder, most rec ent episode (or current) mixed, moderate F31.62 [facility] [place] [address] [facility] [id number] [address] [place] [id number] May, Bipolar I disorder, most rec ent episode (or current) mixed, moderate F31.62 [facility] [place] [address] [facility] [id number] [address] [place] [id number] May, Diabetic polyneuropathy asso ciated with type 2 diabetes mellitus E11.42 [facility] [place] [address] [id number] [place] [id number] 18 May, 2017 Bipolar I disorder, most rec ent episode (or current) mixed, moderate F31.62 [facility] [place] [address] [facility] [id number] [address] [place] [id number] May, Bipolar I disorder, most rec ent episode (or current) mixed, moderate F31.62 [facility] [place] [address] [id number] [address] [place] [phone] May, Chronic pain G89.29 [facility] [place] [address] [id number] [address] [place] [id number] Apr, Bipolar I disorder, most rec ent episode (or current) mixed, moderate F31.62 [facility] [place] [address] [id number] [address] [place] [id number] Apr, [facility] [place] [address] [facility] [id number] [address] [place] [id number] Apr, Chronic pain G89.29 and DM n euro manif type II E11.49 [facility] [place] [address] [facility] [id number] [address] [place] [id number] Apr, [facility], [place] [address] [facility] [id number] [address] [place] [id number] Apr, Bipolar I disorder, most rec ent episode (or current) mixed, moderate F31.62 [facility], [place] [address] [facility] [id number] [address] [place] [id number] Apr, Chronic pain G89.29 [facility], [place] [address] [facility] [id number] [address] [place] [id number] Apr, Iliotibial band syndrome, le ft M76.32 [facility], [place] [address] [facility] [id number] [address] [place] [id number] Apr, Bipolar I disorder, most rec ent episode (or current) mixed, moderate F31.62 [facility], [place] [address] [facility] [id number] [address] [place] [id number] Mar, Bipolar I disorder, most rec ent episode (or current) mixed, moderate F31.62 [facility], [place] [address] [facility] [id number] [address] [place] [id number] Mar, Bipolar I disorder, most rec ent episode (or current) mixed, moderate F31.62 [facility], [place] [address] [facility] [id number] [address] [place] [id number] Mar, [facility], [place] [address] [facility] [id number] [address] [place] [id number] Mar, Bipolar I disorder, most rec ent episode (or current) mixed, moderate F31.62 [facility], [place] [address] [facility] [id number] [address] [place] [id number] Mar, Chronic pain G89.29 [facility], [place] [address] [facility] [id number] [address] [place] [id number] Mar, Bipolar I disorder, most rec ent episode (or current) mixed, moderate F31.62 [facility], [place] [address] [id number] [address] [place] [id number] Mar, Bipolar I disorder, most rec ent episode (or current) mixed, moderate F31.62 [facility], [place] [address] [id number] [address] [place] [id number] Mar, Acute pain of left knee M25. 562 ; Left hip pain M25.552 ; Generalized edema R60.1 and Tongue swelling R22.0 [facility], [place] [address] [id number] [address] [place] [id number] Mar, [facility], [place] [address] [id number] [address] [place] [id number] Feb, Chronic pain G89.29 [facility], [place] [address] [facility] [id number] [address] [place] [id number] Feb, Diabetes E11.9 [facility], [place] [address] [id number] [address] [place] [phone] January, Chronic pain G89.29 [facility], [place] [address] [facility] [id number] [address] [place] [id number] January, [facility], [place] [address] [id number] [address] [place] [id number] January, Bipolar I disorder, most rec ent episode (or current) mixed, moderate F31.62 [facility], [place] [address] [id number] [address] [place] [id number] Dec, Bipolar I disorder, most rec ent episode (or current) mixed, moderate F31.62 [facility], [place] [address] [id number] [address] [place] [id number] Dec, Chronic pain G89.29 [facility], [place] [address] [facility] [id number] [address] [place] [id number] Dec, Bipolar I disorder, most rec ent episode (or current) mixed, moderate F31.62 [facility], [place] [address] [id number] [address] [place] [id number] Dec, Diabetes E11.9 ; Essential h ypertension I10 ; Chronic pain G89.29 and Morbid obesity E66.01 [facility], [place] [address] [id number] [address] [place] [id number] Dec, [facility], [place] [address] [facility] [id number] [address] [place] [id number] Dec, Bipolar I disorder, most rec ent episode (or current) mixed, moderate F31.62 [facility], [place] [address] [id number] [address] [place] [id number] Dec, Bipolar I disorder, most rec ent episode (or current) mixed, moderate F31.62 [facility], [place] [address] [facility] [id number] [address] [place] [id number] Nov, Chronic pain G89.29 [facility], [place] [address] [facility] [id number] [address] [place] [id number] Nov, Bipolar I disorder, most rec ent episode (or current) mixed, moderate F31.62 [facility], [place] [address] [facility] [id number] [address] [place] [phone] Nov, [facility], [place] [address] [facility] [id number] [address] [place] [id number] Nov, Bipolar I disorder, most rec ent episode (or current) mixed, moderate F31.62 [facility], [place] [address] [facility] [id number] [address] [place] [id number] Nov, Bipolar I disorder, most rec ent episode (or current) mixed, moderate F31.62 [facility], [place] [address] [facility] [id number] [address] [place] [id number] Nov, [facility], [place] [address] [facility] [id number] [address] [place] [id number] Nov, [facility], [place] [address] [facility] [id number] [address] [place] [id number] Nov, [facility], [place] [address] [facility] [id number] [address] [place] [id number] Oct, Chronic pain G89.29 [facility], [place] [address] [facility] [id number] [address] [place] [id number] Oct, Bipolar I disorder, most rec ent episode (or current) mixed, moderate F31.62 [facility], [place] [address] [facility] [id number] [address] [place] [id number] Oct, [facility], [place] [address] [facility] [id number] [address] [place] [id number] Oct, Chronic pain G89.29 ; Diabet es E11.9 ; Anxiety F41.9 and 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 [facility], [place] [address] [facility] [id number] [address] [place] [id number] Oct, [facility], [place] [address] [facility] [id number] [address] [place] [id number] Oct, Diabetes E11.9 [facility], [place] [address] [facility] [id number] [address] [place] [id number] Oct, Bipolar I disorder, most rec ent episode (or current) mixed, moderate F31.62 [facility], [place] [address] [facility] [id number] [address] [place] [id number] Sep, Chronic pain G89.29 [facility], [place] [address] [facility] [id number] [address] [place] [id number] Sep, Chronic pain G89.29 [facility], [place] [address] [facility] [id number] [address] [place] [id number] Aug, Chronic pain G89.29 [facility], [place] [address] [facility] [id number] [address] [place] [id number] Jul, [facility], [place] [address] [facility] [id number] [address] [place] [id number] Jul, Diabetes E11.9 [facility], [place] [address] [facility] [id number] [address] [place] [id number] Jul, Chronic pain G89.29 [facility], [place] [address] [facility] [id number] [address] [place] [id number] Jul, Bipolar I disorder, most rec ent episode (or current) mixed, moderate F31.62 [facility], [place] [address] [facility] [id number] [address] [place] [id number] Jun, Bipolar I disorder, most rec ent episode (or current) mixed, moderate F31.62 [facility], [place] [address] [facility] [id number] [address] [place] [id number] Jun, [facility], [place] [address] [place] [id number] [address] [place] [id number] Jun, Bipolar I disorder, most rec ent episode (or current) mixed, moderate F31.62 [place] [address] [place] [id number] [address] [place] [phone] May, Insomnia, unspecified type G 47.00 [place] [address] [facility] [id number] [address] [place] [id number] May, Bipolar I disorder, most rec ent episode (or current) mixed, moderate F31.62 [place] [address] [place] [id number] [address] [place] [id number] 14 May, 2016 [facility], [place] [address] [facility] [id number] [address] [place] [id number] 08 May, 2016 Bipolar I disorder, most rec ent episode (or current) mixed, moderate F31.62 [place] [address] [facility] [id number] [address] [place] [id number] 06 May, 2016 Diabetes E11.9 and Essential hypertension I10 [facility], [place] [address] [facility] [id number] [address] [place] [id number] Apr, Chronic pain G89.29 [facility], [place] [address] [facility] [id number] [address] [place] [id number] Apr, Bipolar I disorder, most rec ent episode (or current) mixed, moderate F31.62 [facility], [place] [address] [facility] [id number] [address] [place] [id number] Apr, [facility], [place] [address] [facility] [id number] [address] [place] [id number] Apr, [facility], [place] [address] [facility] [id number] [address] [place] [id number] Mar, Chronic pain G89.29 ; Headac he, unspecified headache type R51 ; Neuropathy G62.9 ; Pain of right hip joint M25.551 and Essential hypertension I10 [place] [address] [facility] [id number] [address] [place] [id number] Mar, Chronic pain G89.29 [place] [address] [facility] [id number] [address] [place] [id number] Mar, Bipolar I disorder, most rec ent episode (or current) mixed, moderate F31.62 [place] [address] [facility] [id number] [address] [place] [id number] Feb, Bipolar I disorder, most rec ent episode (or current) mixed, moderate F31.62 and Insomnia, unspecified type G47.00 [place] [address] [facility] [id number] [address] [place] [phone] Feb, Chronic pain G89.29 [facility], [place] [address] [facility] [id number] [address] [place] [id number] Feb, Bipolar I disorder, most rec ent episode (or current) mixed, moderate F31.62 [place] [address] [facility] [id number] [address] [place] [phone] January, Bipolar I disorder, most rec ent episode (or current) mixed, moderate F31.62 [place] [address] [facility] [id number] [address] [place] [id number] January, Chronic pain G89.29 [place] [address] [facility] [id number] [address] [place] [id number] January, Chronic pain G89.29 and Esse ntial hypertension I10 [facility], [place] [address] [facility] [id number] [address] [place] [id number] January, Bipolar I disorder, most rec ent episode (or current) mixed, moderate F31.62 [facility], [place] [address] [facility] [id number] [address] [place] [id number] Dec, [facility], [place] [address] [facility] [id number] [address] [place] [id number] Dec, [facility], [place] [address] [facility] [id number] [address] [place] [phone] Dec, [facility], [place] [address] [place] [id number] [address] [place] [id number] Dec, [facility], [place] [address] [facility] [id number] [address] [place] [id number] Nov, Reactive airway disease J45. 909 [facility], [place] [address] [facility] [id number] [address] [place] [id number] Nov, [facility], [place] [address] [facility] [id number] [address] [place] [id number] Nov, [facility], [place] [address] [facility] [id number] [address] [place] [id number] Nov, [facility], [place] [address] [facility] [id number] [address] [place] [id number] Nov, [facility], [place] [address] [facility] [id number] [address] [place] [id number] Nov, Onychomycosis B35.1 ; Hammer toe M20.40 ; Bailey or callus L84 and DM neuro manif type II E11.49 [facility], [place] [address] [facility] [id number] [address] [place] [id number] 15 Nov, 2015 Chronic pain G89.29 ; Leukoc ytosis D72.829 and Diabetes E11.9 [place] [address] [id number] Nov, [place] [address] [id number] Oct, Bronchitis J40 [place] [address] [id number] Oct, [place] [address] [id number] Oct, [place] [address] [address] Oct, Mastoiditis, unspecified lat erality H70.90 and Type 2 diabetes mellitus with complication E11.8 [place] [address] [id number] Sep, [place] [address] [id number] Sep, Dysuria R30.0 ; Cough R05 ; Benign prostatic hyperplasia with lower urinary tract symptoms, unspecified morphology N40.1 ; Hypokalemia E87.6 and Eustachian tube dysfunction, unspecified laterality H69.80 [place] [address] [id number] Sep, Moderate mixed bipolar I dis order F31.62 [place] [address] [id number] Sep, Hypokalemia E87.6 [place] [address] [id number] Sep, [place] [address] [id number] Sep, Upper respiratory tract infe ction, unspecified type J06.9 [place] [address] [id number] Aug, [facility], [place] [address] [id number] [address] [place] [id number] Aug, Dysuria R30.0 [facility], [place] [address] [id number] [address] [place] [id number] Aug, [facility], [place] [address] [id number] [address] [place] [id number] Jul, [facility], [place] [address] [id number] [address] [place] [id number] Jul, [facility], [place] [address] [id number] [address] [place] [id number] Jul, [facility], [place] [address] [id number] [address] [place] [id number] Jul, [facility], [place] [address] [id number] [address] [place] [id number] Jun, [facility], [place] [address] [id number] [address] [place] [id number] Jun, [facility], [place] [address] [id number] [address] [place] [id number] Jun, [facility], [place] [address] [id number] [address] [place] [id number] May, [facility], [place] [address] [id number] [address] [place] [id number] May, Bipolar I disorder, most rec ent episode (or current) mixed, moderate 296.62 [facility], [place] [address] [id number] [address] [place] [id number] 16 May, 2015 [facility], [place] [address] [id number] [address] [place] [id number] May, Bipolar I disorder, most rec ent episode (or current) mixed, moderate 296.62 and Major depressive disorder, recurrent episode, severe, specified as with psychotic behavior 296.34 [facility], [place] [address] [id number] [address] [place] [id number] May, Bipolar I disorder, most rec ent episode (or current) mixed, moderate 296.62 [facility], [place] [address] [id number] [address] [place] [id number] May, [facility], [place] [address] [id number] [address] [place] [id number] Apr, [facility], [place] [address] [id number] [address] [place] [id number] Apr, [facility], [place] [address] [id number] [address] [place] [id number] Apr, Unspecified disorder of kidn ey and ureter 593.9 and Diabetes mellitus type 2, uncontrolled 250.02 [facility], [place] [address] [id number] [address] [place] [id number] Apr, [facility], [place] [address] [id number] [address] [place] [id number] Apr, [facility], [place] [address] [id number] [address] [place] [id number] Apr, [facility], [place] [address] [id number] [address] [place] [id number] Apr, [facility], [place] [address] [facility] [id number] [address] [place] [id number] Apr, Diabetes mellitus type II, u ncontrolled 250.02 [facility], [place] [address] [id number] [address] [place] [id number] Apr, [facility], [place] [address] [id number] [address] [place] [id number] Mar, [facility], [place] [address] [id number] [address] [place] [id number] Mar, [facility], [place] [address] [facility] [id number] [address] [place] [id number] Mar, [facility], [place] [address] [id number] [address] [place] [id number] Mar, Major depressive disorder, r ecurrent episode, severe, specified as with psychotic behavior 296.34 and Bipolar I disorder, most recent episode (or current) mixed, moderate 296.62 [facility], [place] [address] [place] [id number] [address] [place] [id number] Mar, Diabetes 250.00 ; Anuria 788 .5 ; Nausea and vomiting 787.01 and Diarrhea 787.91 [facility], [place] [address] [address] Mar, Diabetes 250.00 [facility], [place] [address] [id number] Mar, [facility], [place] [address] [id number] Mar, Diabetes 250.00 [facility], [place] [address] [id number] Mar, [facility], [place] [address] [place] [id number] [address] [place] [id number] Mar, [facility], [place] [address] [id number] Mar, [facility], [place] [address] [place] [id number] [address] [place] [id number] Mar, [facility], [place] [address] [place] [id number] [place] [phone] Mar, Bipolar I disorder, most rec ent episode (or current) mixed, moderate 296.62 and Major depressive disorder, recurrent episode, severe, specified as with psychotic behavior 296.34 [facility], [place] [address] [address] Mar, Magnesium deficiency 275.2 ; Hypokalemia 276.8 ; Nausea & vomiting 787.01 and Diabetes mellitus type 2, uncontrolled 250.02 [facility], [place] [address] [place] [id number] [place] [phone] Feb, [facility], [place] [address] [address] Feb, Bipolar I disorder, most rec ent episode (or current) mixed, moderate 296.62 [facility], [place] [address] [address] Feb, Nausea and vomiting 787.01 ; Left elbow pain 719.42 ; Anuria 788.5 and Diabetes 250.00 [facility], [place] [address] [address] Feb, [facility], [place] [address] [address] Feb, Hypopotassemia 276.8 and Hyp okalemia 276.8 [place] [address] [address] Feb, Hypopotassemia 276.8 and Hyp okalemia 276.8 [facility], [place] [address] [address] Feb, Seborrheic keratoses 702.19 [facility], [place] [address] [address] Feb, Hypopotassemia 276.8 and Low magnesium levels 275.2 [facility], [place] [address] [address] January, [facility], [place] [address] [id number] January, [facility], [place] [address] [address] January, [facility], [place] [address] [address] January, Scalp lesion 709.9 [facility], [place] [address] [address] January, [facility], [place] [address] [place] [id number] [place] [phone] 30 Dec, 2014 Tear of medial cartilage or meniscus of knee, current 836.0 and Chondromalacia 733.92 [facility] [address] [id number] [address] [place] [id number] Dec, [facility] [address] [id number] [address] [place] [phone] Dec, [facility] [address] [id number] [address] [place] [phone] 28 Dec, 2014 Squamous cell carcinoma, 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 [facility] [address] [id number] [address] [place] [id number] 14 Dec, 2014 [facility] [address] [id number] [address] [place] [id number] Dec, [facility] [place] [address] [id number] [address] [place] [phone] Nov, [facility] [place] [address] [id number] [address] [place] [id number] Nov, [facility] [address] [id number] [address] [place] [id number] Nov, [facility] [place] [address] [id number] [address] [place] [id number] Nov, [facility] [place] [address] [id number] [address] [place] [id number] Nov, [facility] [place] [address] [id number] [address] [place] [id number] Nov, [facility] [address] [id number] [address] [place] [phone] Nov, [facility] [address] [id number] [address] [place] [phone] Nov, [facility] [place] [address] [id number] [address] [place] [phone] Nov, [facility] [address] [id number] [address] [place] [address], [place] [address] Nov, [facility] [address] [id number] [address] [place] [address], [place] [address] Nov, [facility] [address] [id number] [address] [place] [address], [place] [address] Nov, [facility] [address] [id number] [address] [place] [address], [place] [address] Oct, 2014 [facility] [address] [id number] [address] [place] [address], [place] [address] Oct, 2014 [facility] [address] [id number] [address] [place] [address], [place] [address] Oct, 2014 [facility] [address] [id number] [address] [place] [address], [place] [address] Oct, 2014 [facility] [address] [id number] [address] [place] [address], [place] [address] Oct, 2014 [facility] [address] [id number] [address] [place] [address], [place] [address] Oct, [facility] [address] [id number] [address] [place] [address], [place] [address] Oct, [facility] [address] [id number] [address] [place] [address], [place] [address] Oct, 2014 [facility] [address] [id number] [address] [place] [address], [place] [address] Oct, [facility] [address] [id number] [address] [place] [address], [place] [address] Sep, [facility] [address] [id number] [address] [place] [address], [place] [address] Sep, [facility] [address] [id number] [address] [place] [address], [place] [address] Sep, [facility] [address] [id number] [address] [place] [address], [place] [address] Sep, [facility] [address] [id number] [address] [place] [address], [place] [address] Sep, [facility] [address] [id number] [address] [place] [address], [place] [address] Sep, [facility] [address] [id number] [address] [place] [address], [place] [address] Sep, [facility] [address] [id number] [address] [place] [address], [place] [address] Sep, [facility] [address] [id number] [address] [place] [address], [place] [address] Sep, [facility] [address] [id number] [address] [place] [address], [place] [address] Sep, [facility] [address] [id number] [address] [place] [address], [place] [address] Sep, [facility] [address] [id number] [address] [place] [address], [place] [address] Sep, [facility] [address] [id number] [address] [place] [address], [place] [address] Sep, [facility] [address] [id number] [address] [place] [address], [place] [address] Sep, [facility] [address] [id number] [address] [place] [address], [place] [address] Sep, [facility] [address] [id number] [address] [place] [address], [place] [address] Sep, [facility] [address] [id number] [address] [place] [address], [place] [address] Aug, [facility] [address] [id number] [address] [place] [address], [place] [address] Aug, [facility] [address] [id number] [address] [place] [address], [place] [address] Aug, [facility] [address] [id number] [facility] [place] [address] Aug, [facility] [address] [id number] [facility] [place] [address] Aug, [facility] [address] [id number] [facility] [place] [address] Aug, [facility] [address] [id number] [facility] [place] [address] Aug, [facility] [address] [id number] [facility] [place] [address] Aug, [facility] [address] [id number] [address] [place] [address], [place] [address] Aug, [facility] [address] [id number] [address] [place] [address], [place] [address] Aug, [facility] [address] [id number] [address] [place] [address], [place] [address] Aug, [facility] [address] [place] [id number] Aug, [facility] [address] [id number] [address] [place] [address], [place] [address] Aug, [facility] [address] [id number] [address] [place] [address], [place] [address] Aug, [facility] [address] [id number] [address] [place] [address], [place] [address] Aug, [facility] [address] [id number] [address] [place] [address], [place] [address] Aug, [facility] [address] [id number] [address] [place] [address], [place] [address] Aug, [facility] [address] [id number] [address] [place] [address], [place] [address] Aug, [facility] [address] [id number] [address] [place] [address], [place] [address] Aug, [facility] [address] [id number] [address] [place] [address], [place] [address] Aug, [facility] [address] [id number] [address] [place] [address], [place] [address] Aug, [facility] [address] [id number] [address] [place] [address], [place] [address] Aug, [facility] [address] [id number] [address] [place] [address], [place] [address] Aug, [facility] [address] [id number] [address] [place] [address], [place] [address] Aug, [facility] [address] [id number] [address] [place] [address], [place] [address] Aug, [facility] [address] [id number] [address] [place] [address], [place] [address] Aug, [facility] [address] [id number] [address] [place] [address], [place] [address] Aug, [facility] [address] [id number] [address] [place] [address], [place] [address] Aug, [facility] [address] [id number] [address] [place] [address], [place] [address] Aug, [facility] [address] [id number] [address] [place] [address], [place] [address] Aug, [facility] [address] [id number] [address] [place] [address], [place] [address] Jul, [facility] [address] [id number] [address] [place] [address], [place] [address] Jul, [facility] [address] [id number] [address] [place] [address], [place] [address] Jul, [facility] [address] [id number] [address] [place] [address], [place] [address] Jul, [facility] [address] [id number] [address] [place] [address], [place] [address] Jul, [facility] [address] [id number] [address] [place] [address], [place] [address] Jul, [facility] [address] [id number] [address] [place] [address], [place] [address] Jul, [facility] [address] [id number] [address] [place] [address], [place] [address] Jul, [facility] [address] [id number] [address] [place] [address], [place] [address] Jul, [facility] [address] [id number] [address] [place] [address], [place] [address] Jul, [facility] [address] [id number] [address] [place] [address], [place] [address] Jun, [facility] [address] [id number] [address] [place] [address], [place] [address] Jun, [facility] [address] [id number] [address] [place] [address], [place] [address] Jun, [facility] [address] [id number] [address] [place] [address], [place] [address] Jun, [facility] [address] [id number] [address] [place] [address], [place] [address] Jun, [facility] [address] [id number] [address] [place] [address], [place] [address] Jun, [facility] [address] [id number] [address] [place] [address], [place] [address] Jun, [facility] [address] [id number] [address] [place] [address], [place] [address] Jun, [facility] [address] [id number] [address] [place] [address], [place] [address] Jun, [facility] [address] [id number] [address] [place] [address], [place] [address] Jun, [facility] [address] [id number] [address] [place] [address], [place] [address] 29 Sep, 2013 [facility] [address] [id number] [address] [place] [address], [place] [address] 29 Sep, 2013 [facility] [address] [id number] [address] [place] [address], [place] [address] 26 Sep, 2013 [facility] [address] [id number] [address] [place] [address], [place] [address] 26 May, 2013 [facility] [address] [id number] [address] [place] [address], [place] [address] 17 May, 2013 [facility] [address] [id number] [address] [place] [address], [place] [address] 17 May, 2013 [facility] [address] [id number] [address] [place] [address], [place] [address] 15 May, 2013 [facility] [address] [id number] [address] [place] [address], [place] [address] 15 May, 2013 [facility] [address] [id number] [address] [place] [address], [place] [address] 15 May, 2013 [facility] [address] [id number] [address] [place] [address], [place] [address] 15 May, 2013 [facility] [address] [id number] [address] [place] [address], [place] [address] 10 May, 2013 [facility] [address] [id number] [address] [place] [address], [place] [address] 10 May, 2013 [facility] [address] [id number] [address] [place] [address], [place] [address] 09 May, 2013 [facility] [address] [id number] [address] [place] [address], [place] [address] 09 Sep, 2013 [facility] [address] [id number] [address] [place] [address], [place] [address] 04 Sep, 2013 [facility] [address] [id number] [address] [place] [address], [place] [address] May, [facility] [address] [id number] [address] [place] [address], [place] [address] Apr, [facility] [address] [id number] [address] [place] [address], [place] [address] Apr, [facility] [address] [id number] [address] [place] [address], [place] [address] Apr, [facility] [address] [id number] [address] [place] [address], [place] [address] Apr, [facility] [address] [id number] [address] [place] [address], [place] [address] Apr, [facility] [address] [id number] [address] [place] [address], [place] [address] Apr, [facility] [address] [id number] [address] [place] [address], [place] [address] Apr, [facility] [address] [id number] [address] [place] [address], [place] [address] Apr, [facility] [address] [id number] [address] [place] [address], [place] [address] Apr, [facility] [address] [id number] [address] [place] [address], [place] [address] Apr, [facility] [address] [id number] [address] [place] [address], [place] [address] Apr, [facility] [address] [id number] [address] [place] [address], [place] [address] Apr, [facility] [address] [id number] [address] [place] [address], [place] [address] Apr, [facility] [address] [id number] [address] [place] [address], [place] [address] Apr, [facility] [address] [id number] [address] [place] [address], [place] [address] Apr, [facility] [address] [id number] [facility] [place] [address] Mar, 2013 [facility] [address] [id number] [facility] [place] [address] Mar, 2013 [facility] [address] [id number] [facility] [place] [address] Mar, 2013 [facility] [address] [id number] [facility] [place] [address] Mar, 2013 [facility] [address] [id number] [facility] [place] [address] Mar, 2013 [facility] [address] [id number] [address] [place] [address], [place] [address] Mar, 2013 [facility] [address] [id number] [address] [place] [address], [place] [address] Mar, 2013 [facility] [address] [id number] [address] [place] [address], [place] [address] Mar, 2013 [facility] [address] [id number] [address] [place] [address], [place] [address] Mar, 2013 [facility] [address] [id number] [address] [place] [address], [place] [address] Mar, 2013 [facility] [address] [id number] [address] [place] [address], [place] [address] Mar, 2013 [facility] [address] [id number] [address] [place] [address], [place] [address] Mar, 2013 [facility] [address] [id number] [address] [place] [address], [place] [address] Mar, 2013 [facility] [address] [id number] [address] [place] [address], [place] [address] Mar, 2013 [facility] [address] [id number] [address] [place] [address], [place] [address] Mar, 2013 [facility] [address] [id number] [address] [place] [address], [place] [address] Mar, [facility] [address] [id number] [facility] [place] [address] Mar, [facility] [address] [id number] [facility] [place] [address] Mar, [facility] [address] [id number] [facility] [place] [address] Feb, [facility] [address] [id number] [facility] [place] [address] Feb, [facility] [address] [id number] [facility] [place] [address] Feb, [facility] [address] [id number] [address] [place] [address], [place] [address] Feb, [facility] [address] [id number] [address] [place] [address], [place] [address] Feb, [facility] [address] [id number] [address] [place] [address], [place] [address] Feb, [facility] [address] [id number] [address] [place] [address], [place] [address] Feb, [facility] [address] [id number] [address] [place] [address], [place] [address] Feb, [facility] [address] [id number] [address] [place] [address], [place] [address] Feb, [facility] [address] [id number] [address] [place] [address], [place] [address] Feb, [facility] [address] [id number] [address] [place] [address], [place] [address] Feb, [facility] [address] [id number] [address] [place] [address], [place] [address] Feb, [facility] [address] [id number] [address] [place] [address], [place] [address] Feb, [facility] [address] [id number] [address] [place] [address], [place] [address] Feb, [facility] [address] [id number] [address] [place] [address], [place] [address] January, [facility] [address] [id number] [address] [place] [address], [place] [address] January, [facility] [address] [id number] [address] [place] [address], [place] [address] January, [facility] [address] [id number] [address] [place] [address], [place] [address] January, [facility] [address] [id number] [address] [place] [address], [place] [address] January, [facility] [address] [id number] [address] [place] [address], [place] [address] January, [facility] [address] [id number] [address] [place] [address], [place] [address] January, [facility] [address] [id number] [address] [place] [address], [place] [address] January, [facility] [address] [id number] [address] [place] [address], [place] [address] January, [facility] [address] [id number] [address] [place] [address], [place] [address] January, [facility] [address] [id number] [address] [place] [address], [place] [address] January, [facility] [address] [id number] [address] [place] [address], [place] [address] January, [facility] [address] [id number] [address] [place] [address], [place] [address] January, [facility] [address] [id number] [address] [place] [address], [place] [address] January, [facility] [address] [id number] [address] [place] [address], [place] [address] Dec, [facility] [address] [id number] [facility] [place] [address] Dec, [facility] [address] [id number] [facility] [place] [address] Dec, [facility] [address] [id number] [facility] [place] [address] Dec, [facility] [address] [id number] [address] [place] [address], [place] [address] Dec, [facility] [address] [id number] [facility] [place] [address] Dec, [facility] [address] [id number] [address] [place] [address], [place] [address] Dec, [facility] [address] [id number] [address] [place] [address], [place] [address] Dec, [facility] [address] [id number] [address] [place] [address], [place] [address] Dec, [facility] [address] [id number] [address] [place] [address], [place] [address] Dec, [facility] [address] [id number] [address] [place] [address], [place] [address] Nov, [facility] [address] [id number] [address] [place] [address], [place] [address] Nov, [facility] [address] [id number] [address] [place] [address], [place] [address] Nov, [facility] [address] [id number] [address] [place] [address], [place] [address] Nov, [facility] [address] [id number] [address] [place] [address], [place] [address] Nov, [facility] [address] [id number] [address] [place] [address], [place] [address] Nov, [facility] [address] [id number] [address] [place] [address], [place] [address] Nov, [facility] [address] [id number] [address] [place] [address], [place] [address] Nov, [facility] [address] [id number] [address] [place] [address], [place] [address] Nov, [facility] [address] [id number] [address] [place] [address], [place] [address] Nov, [facility] [address] [id number] [address] [place] [address], [place] [address] Oct, [facility] [address] [id number] [address] [place] [address], [place] [address] Oct, [facility] [address] [id number] [address] [place] [address], [place] [address] Oct, [facility] [address] [id number] [address] [place] [address], [place] [address] Oct, [facility] [address] [id number] [address] [place] [address], [place] [address] Oct, [facility] [address] [id number] [address] [place] [address], [place] [address] Oct, [facility] [address] [id number] [address] [place] [address], [place] [address] Oct, [facility] [address] [id number] [address] [place] [address], [place] [address] Oct, [facility] [address] [id number] [address] [place] [address], [place] [address] Oct, [facility] [address] [id number] [address] [place] [address], [place] [address] Oct, [facility] [address] [id number] [address] [place] [address], [place] [address] Oct, [facility] [address] [id number] [address] [place] [address], [place] [address] Oct, [facility] [address] [id number] [address] [place] [address], [place] [address] Oct, [facility] [address] [id number] [address] [place] [address], [place] [address] Oct, [facility] [address] [id number] [address] [place] [address], [place] [address] Sep, [facility] [address] [id number] [address] [place] [address], [place] [address] Sep, [facility] [address] [id number] [address] [place] [address], [place] [address] Sep, [facility] [address] [id number] [address] [place] [address], [place] [address] Sep, [facility] [address] [id number] [address] [place] [address], [place] [address] Sep, [facility] [address] [id number] [address] [place] [address], [place] [address] Sep, [facility] [address] [id number] [address] [place] [address], [place] [address] Sep, [facility] [address] [id number] [address] [place] [address], [place] [address] Sep, [facility] [address] [id number] [address] [place] [address], [place] [address] Sep, [facility] [address] [id number] [address] [place] [address], [place] [address] Sep, [facility] [address] [id number] [address] [place] [address], [place] [address] Aug, [facility] [address] [id number] [address] [place] [address], [place] [address] Aug, [facility] [address] [id number] [address] [place] [address], [place] [address] Jul, [facility] [address] [id number] [address] [place] [address] [place] [address] Jul, [facility] [address] [id number] [address] [place] [address], [place] [address] Jul, [facility] [address] [id number] [address] [place] [address], [place] [address] Jul, [facility] [address] [id number] [address] [place] [address], [place] [address] Jul, [facility] [address] [id number] [address] [place] [address], [place] [address] Jul, [facility] [address] [id number] [address] [place] [address], [place] [address] Jul, [facility] [address] [id number] [address] [place] [address], [place] [address] Jul, [facility] [address] [id number] [address] [place] [address], [place] [address] Jul, [facility] [address] [id number] [address] [place] [address], [place] [address] Jul, [facility] [address] [id number] [address] [place] [address], [place] [address] Jul, [facility] [address] [id number] [address] [place] [address], [place] [address] Jul, [facility] [address] [id number] [address] [place] [address], [place] [address] Jul, [facility] [address] [id number] [address] [place] [address] Jul, [facility] [address] [id number] [address] [place] [address] Jul, [facility] [address] [id number] [address] [place] [address], [place] [address] Jul, [facility] [address] [id number] [address] [place] [id number] Jul, [facility] [address] [id number] [address] [place] [address], [place] [address] Jul, 2012 [facility] [address] [id number] [address] [place] [address], [place] [address] Jul, 2012 [facility] [address] [id number] [address] [place] [address], [place] [address] Jun, 2012 [facility] [address] [id number] [address] [place] [address], [place] [address] Jun, 2012 [facility] [address] [id number] [address] [place] [address], [place] [address] Jun, 2012 [facility] [address] [id number] [address] [place] [address], [place] [address] Jun, 2012 [facility] [address] [id number] [address] [place] [address], [place] [address] Jun, 2012 [facility] [address] [id number] [address] [place] [address], [place] [address] Jun, [facility] [address] [id number] [address] [place] [address], [place] [address] Jun, [facility] [address] [id number] [address] [place] [address], [place] [address] Jun, [facility] [address] [id number] [address] [place] [address], [place] [address] Jun, [facility] [address] [id number] [address] [place] [address], [place] [address] Jun, [facility] [address] [id number] [address] [place] [address], [place] [address] Jun, [facility] [address] [id number] [address] [place] [address], [place] [address] May, [facility] [address] [id number] [address] [place] [address] May, [facility] [address] [id number] [address] [place] [id number] 19 May, 2013 [facility] [address] [id number] [facility] [place] [address] 17 May, 2013 [facility] [address] [id number] [address] [place] [address], [place] [address] 11 May, 2013 [facility] [address] [id number] [address] [place] [address], [place] [address] 10 May, 2013 [facility] [address] [id number] [address] [place] [address], [place] [address] 09 May, 2013 [facility] [address] [id number] [address] [place] [address], [place] [address] 05 May, 2013 [facility] [address] [id number] [address] [place] [address], [place] [address] Apr, [facility] [address] [id number] [address] [place] [address], [place] [address] Apr, [facility] [address] [id number] [address] [place] [address], [place] [address] Apr, [facility] [address] [id number] [address] [place] [address], [place] [address] Apr, [facility] [address] [id number] [address] [place] [address], [place] [address] Apr, [facility] [address] [id number] [address] [place] [address], [place] [address] Mar, [facility] [address] [id number] [address] [place] [address], [place] [address] Mar, [facility] [address] [id number] [address] [place] [address], [place] [address] Mar, [facility] [address] [id number] [address] [place] [address], [place] [address] Mar, [facility] [address] [id number] [address] [place] [address], [place] [address] Mar, [facility] [address] [id number] [address] [place] [address], [place] [address] Mar, [facility] [address] [id number] [address] [place] [address], [place] [address] Mar, [facility] [address] [id number] [address] [place] [address], [place] [address] Mar, [facility] [address] [id number] [address] [place] [address], [place] [address] Feb, [facility] [address] [id number] [address] [place] [address], [place] [address] Feb, [facility] [address] [id number] [address] [place] [address], [place] [address] January, [facility] [address] [id number] [address] [place] [address], [place] [address] January, [facility] [address] [id number] [address] [place] [address], [place] [address] Dec, [facility] [address] [id number] [address] [place] [address], [place] [address] Dec, [facility] [address] [id number] [address] [place] [address], [place] [address] Nov, [facility] [address] [id number] [address] [place] [address], [place] [address] Nov, [facility] [address] [id number] [address] [place] [address], [place] [address] Nov, [facility] [address] [id number] [address] [place] [address], [place] [address] Nov, [facility] [address] [id number] [address] [place] [address], [place] [address] Oct, [facility] [address] [id number] [address] [place] [address], [place] [address] Oct, [facility] [address] [id number] [address] [place] [address], [place] [address] Oct, [facility] [address] [id number] [address] [place] [address], [place] [address] Oct, [facility] [address] [id number] [address] [place] [address], [place] [address] 16 Oct, 2012 [facility] [address] [id number] [address] [place] [address], [place] [address] 14 Oct, 2012 [facility] [address] [id number] [address] [place] [address], [place] [address] 08 Oct, 2012 [facility] [address] [id number] [address] [place] [address], [place] [address] 07 Oct, 2012 [facility] [address] [id number] [address] [place] [address], [place] [address] 03 Oct, 2012 [facility] [address] [id number] [address] [place] [address], [place] [address] Sep, [facility] [address] [id number] [address] [place] [address], [place] [address] Sep, [facility] [address] [id number] [address] [place] [address], [place] [address] Sep, [facility] [address] [id number] [address] [place] [address], [place] [address] Sep, [facility] [address] [id number] [address] [place] [address], [place] [address] Sep, [facility] [address] [id number] [address] [place] [address], [place] [address] Sep, [facility] [address] [id number] [address] [place] [address], [place] [address] Sep, [facility] [address] [id number] [address] [place] [address], [place] [address] 08 Sep, 2012 [facility] [address] [id number] [address] [place] [address], [place] [address] Aug, [facility] [address] [id number] [address] [place] [address], [place] [address] 31 Aug, 2012 [facility] [address] [id number] [address] [place] [address], [place] [address] Aug, [facility] [address] [id number] [address] [place] [address], [place] [address] Aug, [facility] [address] [id number] [address] [place] [address], [place] [address] Aug, [facility] [address] [id number] [address] [place] [address], [place] [address] Aug, [facility] [address] [id number] [address] [place] [address], [place] [address] Aug, [facility] [address] [id number] [address] [place] [address], [place] [address] Aug, [facility] [address] [id number] [address] [place] [address], [place] [address] Jul, [facility] [address] [id number] [address] [place] [address], [place] [address] Jul, [facility] [address] [id number] [address] [place] [address], [place] [address] Jul, [facility] [address] [id number] [address] [place] [address], [place] [address] Jul, [facility] [address] [id number] [address] [place] [address], [place] [address] Jul, [facility] [address] [id number] [address] [place] [address], [place] [address] Jul, [facility] [address] [id number] [address] [place] [address], [place] [address] Jun, [facility] [address] [id number] [address] [place] [address], [place] [address] Jun, [facility] [address] [id number] [address] [place] [address], [place] [address] Jun, [facility] [address] [id number] [address] [place] [address], [place] [address] 23 Jun, 2012 [facility] [address] [id number] [address] [place] [address], [place] [address] 22 Jun, 2012 [facility] [address] [id number] [address] [place] [address], [place] [address] 19 Jun, 2012 [facility] [address] [id number] [address] [place] [address], [place] [address] Jun, [facility] [address] [id number] [address] [place] [address], [place] [address] Jun, [facility] [address] [id number] [address] [place] [address], [place] [address] 10 Jun, 2012 [facility] [address] [id number] [address] [place] [address], [place] [address] 26 May, 2012 [facility] [address] [id number] [address] [place] [address], [place] [address] 24 May, 2012 [facility] [address] [id number] [address] [place] [address], [place] [address] 18 May, 2012 [facility] [address] [id number] [address] [place] [address], [place] [address] 30 Apr, 2012 [facility] [address] [id number] [address] [place] [address], [place] [address] 29 Apr, 2012 [facility] [address] [id number] [address] [place] [address], [place] [address] Apr, [facility] [address] [id number] [address] [place] [address], [place] [address] 14 Apr, 2012 [facility] [address] [id number] [address] [place] [address], [place] [address] Apr, [facility] [address] [id number] [address] [place] [address], [place] [address] Apr, [facility] [address] [id number] [address] [place] [address], [place] [address] Mar, [facility] [address] [id number] [address] [place] [address], [place] [address] Mar, [facility] [address] [id number] [address] [place] [address], [place] [address] Mar, [facility] [address] [id number] [address] [place] [address], [place] [address] Mar, [facility] [address] [id number] [address] [place] [address], [place] [address] Feb, [facility] [address] [id number] [address] [place] [address], [place] [address] Feb, [facility] [address] [id number] [address] [place] [address], [place] [address] Feb, [facility] [address] [id number] [address] [place] [address], [place] [address] Feb, [facility] [address] [id number] [address] [place] [address], [place] [address] Feb, [facility] [address] [id number] [address] [place] [address], [place] [address] January, [facility] [address] [id number] [address] [place] [address], [place] [address] January, [facility] [address] [id number] [address] [place] [address], [place] [address] January, [facility] [address] [id number] [address] [place] [address], [place] [address] January, [facility] [address] [id number] [address] [place] [address], [place] [address] January, [facility] [address] [id number] [address] [place] [address], [place] [address] January, [facility] [address] [id number] [address] [place] [address], [place] [address] Dec, [facility] [address] [id number] [address] [place] [address], [place] [address] 24 Dec, 2011 [facility] [address] [id number] [address] [place] [address], [place] [address] 17 Dec, 2011 [facility] [address] [id number] [address] [place] [address], [place] [address] 09 Dec, 2011 [facility] [address] [id number] [address] [place] [address], [place] [address] 06 Dec, 2011 [facility] [address] [id number] [address] [place] [address], [place] [address] 27 Nov, 2011 [facility] [address] [id number] [address] [place] [address], [place] [address] 14 Nov, 2011 [facility] [address] [id number] [address] [place] [address], [place] [address] 12 Nov, 2011 [facility] [address] [id number] [address] [place] [address], [place] [address] 07 Nov, 2011 [facility] [address] [id number] [address] [place] [address], [place] [address] 29 Oct, 2011 [facility] [address] [id number] [address] [place] [address], [place] [address] 28 Oct, 2011 [facility] [address] [id number] [address] [place] [address], [place] [address] 24 Oct, 2011 [facility] [address] [id number] [address] [place] [address], [place] [address] 13 Oct, 2011 [facility] [address] [id number] [address] [place] [address], [place] [address] 08 Oct, 2011 [facility] [address] [id number] [address] [place] [address], [place] [address] 31 Sep, 2011 [facility] [address] [id number] [address] [place] [address], [place] [address] 30 Sep, 2011 [facility] [address] [id number] [address] [address] Sep, [facility] [address] [id number] [address] [place] [address], [place] [address] Sep, [facility] [address] [id number] [address] [place] [address], [place] [address] Sep, [facility] [address] [id number] [address] [place] [address] Sep, [facility] [address] [id number] [address] [place] [id number] Aug, [facility] [address] [id number] [address] [place] [address], [place] [address] Aug, [facility] [address] [id number] [address] [place] [id number] Aug, [facility] [address] [id number] [address] [place] [id number] Jul, [facility] [address] [id number] [address] [place] [id number] Jul, [facility] [address] [id number] [address] [place] [id number] Jul, [facility] [address] [id number] [address] [place] [phone] Jul, [facility] [address] [id number] [address] [place] [id number] Jun, [facility] [address] [id number] [address] [place] [id number] 31 Jun, 2011 [facility] [address] [id number] [address] [place] [address], [place] [id number] 18 Jun, 2011 [facility] [address] [id number] [address] [place] [id number] Jun, [facility] [address] [id number] [address] [place] [id number] Jun, [facility] [address] [id number] [address] [place] [address], [place] [id number] 10 Jun, 2011 [facility] [address] [id number] [address] [place] [address], [place] [id number] 11 Mar, 2011 [facility] [address] [id number] [address] [place] [address], [place] [id number] 18 Dec, 2010 [facility] [address] [id number] [address] [place] [address], [place] [id number] 11 Dec, 2010 [facility] [address] [id number] [address] [place] [address], [place] [id number] 18 Nov, 2010 [facility] [address] [id number] [address] [place] [address], [place] [id number] 16 Nov, 2010 [facility] [address] [id number] [address] [place] [address], [place] [id number] 10 Sep, 2010 [facility] [address] [id number] [address] [place] [address], [place] [id number] 31 Aug, 2010 [facility] [address] [id number] [address] [place] [address], [place] [id number] 29 Aug, 2010 [facility] [address] [id number] [address] [place] [address], [place] [id number] 29 Aug, 2010 [facility] [address] [id number] [address] [place] [address], [place] [id number] 29 Aug, 2010 [facility] [address] [id number] [address] [place] [address], [place] [id number] 27 Aug, 2010 [facility] [address] [id number] [address] [place] [address], [place] [id number] 14 Aug, 2010 [facility] [address] [id number] [address] [place] [address], [place] [id number] 08 Aug, 2010 [facility] [address] [id number] [address] [place] [address], [place] [id number] 08 Aug, 2010 [facility] [address] [id number] [address] [place] [address], [place] [address] Aug, [facility] [address] [id number] [address] [place] [address], [place] [address] Aug, [facility] [address] [id number] [address] [place] [address], [place] [address] Aug, [facility] [address] [id number] [address] [place] [address], [place] [id number] Aug, [facility] [address] [id number] [address] [place] [address], [place] [address] Jul, [facility] [address] [id number] [address] [place] [address], [place] [id number] Jul, [facility] [address] [id number] [address] [place] [address], [place] [address] Jul, [facility] [address] [id number] [address] [place] [address], [place] [id number] Jul, [facility] [address] [id number] [address] [place] [id number] Jul, [facility] [address] [id number] [address] [place] [address], [place] [address] Jul, [facility] [address] [id number] [address] [place] [id number] Jun, [facility] [address] [id number] [address] [place] [id number] Jun, [facility] [address] [id number] [address] [place] [id number] Jun, [facility] [address] [id number] [address] [place] [phone] Jun, [facility] [address] [id number] [address] [place] [id number] Apr, [facility] [address] [id number] [address] [place] [phone] Mar, [facility] [address] [id number] [address] [place] [id number] 17 Feb, 2010 [facility] [address] [id number] [address] [place] [address], [place] [id number] January, [facility] [address] [id number] [address] [place] [id number] 15 Dec, 2009 [facility] [address] [id number] [address] [place] [phone] Nov, [facility] [address] [id number] [address] [place] [id number] 31 Aug, 2009 [facility] [address] [id number] [address] [place] [address], [place] [id number] Aug, [facility] [address] [id number] [address] [place] [phone] Aug, [facility] [address] [id number] [address] [place] [id number] Jul, [facility] [address] [id number] [address] [place] [id number] Jul, [facility] [address] [id number] [address] [place] [id number] Jul, [facility] [address] [id number] [address] [place] [id number] 30 Jun, 2009 [facility] [address] [id number] [address] [place] [id number] 29 Jun, 2009 [facility] [address] [id number] [address] [place] [phone] Jun, [facility] [address] [id number] [address] [place] [id number] 22 Jun, 2009 [facility] [address] [id number] [address] [place] [id number] Jun, [facility] [address] [id number] [address] [place] [id number] Jun, [facility] [address] [facility] [id number] [address] [place] [phone] Apr, [facility] [place] [address] [facility] [id number] [address] [place] [id number] Apr, [facility] [place] [address] [facility] [id number] [address] [place] [phone] Feb, [facility] [place] [address] [facility] [id number] [address] [place] [id number] January, [facility] [place] [address] [facility] [id number] [address] [place] [id number] Dec, IMMUNIZATIONS No Known Immunizations SOCIAL HISTORY [...] History colonoscopy 2009 ([facility]), 2013 ([facility] ) Surgical History heart cath: CAD w/ [...] inability to urinate 09/16/[address] [facility] health ea rly 1999's Hospitalization History hyperkalemia 10/2017 Hospitalization History fluid in lung
--- OUTSIDE RECORDS SUMMARY | 2020-03-01 18:22 | XMS REPORT ---
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 Role Phone YONATHAN RIOS Unavailable PROBLEMS Type Condition ICD9-CM Code WPF36-LG Code Onset Dates Condition S tatus SNOMED Code Problem Cough R05 Active 06774126 Problem Benign prostatic hyperplasia with lower urinary tract symptoms, unspecified morphology N40.1 Active 97700 6007 Problem Eustachian tube dysfunction, unspecified laterality H69.80 Active 59249561 Problem Chronic pain G89.29 Active 3692869 1 Problem DM neuro manif type II E11.49 Active 36123108 Problem Diabetes E11.9 Active 47430495 Problem Leukocytosis D72.829 Active 4801674 06 Problem Falling R29.6 Active 385960460 Problem Pressure ulcer of other site, stage 3 L89.893 Active 347087100 Problem 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 Active 634973118 Problem Eye exam abnormal R93.8 Active 16 6180089 Problem Dysuria R30.0 Active 99305966 Problem Hypokalemia E87.6 Active 50819124 Problem Morbid obesity E66.01 Active 98456 6002 Problem Anxiety F41.9 Active 64260415 Problem Diabetic polyneuropathy associated with type 2 d iabetes mellitus E11.42 Active 52202848 Problem Essential hypertension I10 Active 37589226 Problem Bilateral primary osteoarthritis of knee M17.0 Active 527149602 Problem Polyneuropathy associated with underlying disease G63 Active 310425367 Problem Anemia of chronic illness D63.8 Acti ve 801940198 Problem Lymphocytosis D72.820 Active 479538 09 Problem Retinal edema H35.81 Active 031134 6 Problem Chronic lymphocytic leukemia C91.10 A ctive 00408238 Problem Bipolar disorder, in partial remission, most rec ent episode depressed F31.75 Active 51421125 Problem Pure hypercholesterolemia E78.00 Acti ve 387497147 Problem Primary osteoarthritis of right knee M17.11 Active 244591065219485 Problem Bipolar disorder F31.9 Active 137 37900 Problem Bipolar I disorder, most recent episode (or curr ent) mixed, moderate F31.62 Active 64929466 Problem Chronic diastolic (congestive) heart failure I50.3 2 Active 529231492 Problem Reactive airway disease J45.909 Active 681084623849 Problem Insomnia, unspecified type G47.00 Act sharon 493632168 Problem Other chronic pain G89.29 Active 8 3376662 Problem Other iron deficiency anemia D50.8 A ctive 29621360 Problem Mild cognitive impairment G31.84 Acti ve 533011457 Problem Skin cancer C44.90 Active 98694767 7 ALLERGIES No Information ENCOUNTERS Encounter Location Date Diagnosis [place] [address] [address] [facility] [id number] [address] [place] [address] Apr, [place] [address] [id number] [place] [address] Mar, Bipolar disorder F31.9 and C hronic pain G89.29 [place] [address] [address] [facility] [id number] [address] [place] [address] Feb, Bipolar disorder F31.9 [place] [address] [address] [place] [id number] [address] [place] [address] Feb, Cellulitis of right upper ex tremity L03.113 and Skin abrasion T14.8XXA [place] [address] [address] [facility] [id number] [address] [place] [address] Feb, Bipolar disorder, in partial remission, most recent episode depressed F31.75 and Mild cognitive impairment G31.84 [place] [address] [address] [facility] [id number] [address] [place] [address] Feb, Chronic pain G89.29 [place] [address] [address] [facility] [id number] [address] [place] [address] Feb, Bipolar disorder, in partial remission, most recent episode depressed F31.75 and Mild cognitive impairment G31.84 [place] [address] [address] [place] [id number] [address] [place] [address] January, Bipolar disorder, in partial remission, most recent episode depressed F31.75 and Mild cognitive impairment G31.84 [facility] [address] [id number] [address] [place] [address] January, Chronic pain G89.29 and Bipo lar disorder F31.9 [facility] [address] [id number] [address] [place] [address] January, Bipolar disorder, in partial remission, most recent episode depressed F31.75 and Mild cognitive impairment G31.84 [facility] [address] [id number] [address] [place] [address] Dec, [facility] [address] [id number] [address] [place] [address] Dec, Chronic pain G89.29 and Bipo lar disorder F31.9 [facility] [address] [id number] [address] [place] [address] Dec, Edema of both lower extremit ies R60.0 [facility] [address] [id number] [address] [place] [address] Dec, Bipolar disorder F31.9 [facility] [address] [id number] [address] [place] [address] Dec, Bipolar disorder, in partial remission, most recent episode depressed F31.75 and Mild cognitive impairment G31.84 [facility] [address] [id number] [address] [place] [address] Nov, [facility] [address] [id number] [address] [place] [address] Nov, Chronic pain G89.29 [facility] [address] [id number] [address] [place] [address] Nov, Bipolar disorder, in partial remission, most recent episode depressed F31.75 and Mild cognitive impairment G31.84 [facility] [address] [id number] [address] [place] [address] Nov, Bipolar disorder F31.9 [place] [id number] [place] [address] 04 Nov, 2018 Encounter for Medicare hilary [...] unspecified morphology N40.1 and Essential hypertension I10 [address] [address] Oct, Chronic pain G89.[address] [address] 18 Oct, 2018 Diabetes E11.9 [place] [address] [address] [place] [id number] [address] [place] [address] Oct, Bipolar I disorder, most rec ent episode (or current) mixed, moderate F31.62 and Mild cognitive impairment G31.84 [place] [id number] [place] [address] Oct, Bipolar I disorder, most rec ent episode (or current) mixed, moderate F31.62 and Mild cognitive impairment G31.84 [place] [address] [address] [place] [id number] [address] [place] [address] Sep, Bipolar I disorder, most rec ent episode (or current) mixed, moderate F31.62 and Mild cognitive impairment G31.84 [place] [address] [address] [place] [id number] [address] [place] [address] Sep, [place] [id number] [place] [address] Sep, Diabetes E11.9 ; Hypoxia R09 .02 ; Hyperglycemia R73.9 ; Therapeutic drug monitoring Z51.81 ; BMI 50.0-59.9, adult Z68.43 and Skin cancer C44.90 [place] [address] [address] [facility] [id number] [address] [place] [address] Sep, Chronic pain G89.29 [facility] [address] [facility] [id number] [address] [place] [address] Sep, Bipolar I disorder, most rec ent episode (or current) mixed, moderate F31.62 [place] [address] [address] [facility] [id number] [address] [place] [address] Sep, [place] [address] [address] [facility] [id number] [address] [place] [address] Sep, [place] [address] [address] [place] [id number] [address] [place] [address] Aug, Chronic pain G89.29 [place] [address] [address] [facility] [id number] [address] [place] [address] Aug, Bipolar I disorder, most rec ent episode (or current) mixed, moderate F31.62 [place] [address] [address] [facility] [id number] [address] [place] [address] Aug, Bipolar I disorder, most rec ent episode (or current) mixed, moderate F31.62 and Mild cognitive impairment G31.84 [place] [address] [address] [facility] [id number] [address] [place] [address] Jul, [place] [address] [address] [facility] [id number] [address] [place] [address] Jul, Chronic pain G89.29 [place] [address] [address] [facility] [id number] [address] [place] [address] Jul, Bipolar I disorder, most rec ent episode (or current) mixed, moderate F31.62 and Mild cognitive impairment G31.84 [place] [address] [address] [place] [id number] [address] [place] [address] Jul, Bipolar I disorder, most rec ent episode (or current) mixed, moderate F31.62 and MCI (mild cognitive impairment) G31.84 [facility] [address] [id number] [address] [place] [address] Jul, [facility] [address] [id number] [address] [place] [address] Jul, [facility] [address] [id number] [address] [place] [address] Jul, Bipolar I disorder, most rec ent episode (or current) mixed, moderate F31.62 [facility] [address] [id number] [address] [place] [address] Jul, Chronic pain G89.29 [facility] [address] [facility] [id number] [address] [place] [address] Jun, Bipolar I disorder, most rec ent episode (or current) mixed, moderate F31.62 [facility] [address] [facility] [id number] [address] [place] [address] Jun, Pre-procedure lab exam Z01.8 12 [facility] [address] [facility] [id number] [address] [place] [address] Jun, [facility] [address] [id number] [place] [id number] Jun, [facility] [address] [facility] [id number] [address] [place] [address] Jun, [facility] [address] [facility] [id number] [address] [place] [address] Jun, Forgetfulness R68.89 ; Pre-s yncope R55 ; Localized edema R60.0 ; Other iron deficiency anemia D50.8 and BMI 50.0-59.9, adult Z68.43 [facility] [address] [id number] [address] [place] [address] Jun, Chronic pain G89.29 [facility] [address] [facility] [id number] [address] [place] [address] Jun, Chronic pain G89.29 [facility] [address] [facility] [id number] [address] [place] [address] Jun, Bipolar I disorder, most rec ent episode (or current) mixed, moderate F31.62 [place] [address] [address] [place] [id number] [address] [place] [address] May, Chronic pain G89.29 [facility] [address] [facility] [id number] [address] [place] [address] Apr, [place] [address] [address] [facility] [id number] [address] [place] [address] Apr, Chronic pain G89.29 [place] [address] [address] [facility] [id number] [address] [place] [address] Apr, Primary osteoarthritis of ri ght knee M17.11 [place] [address] [address] [place] [id number] [address] [place] [address] Mar, [place] [address] [address] [facility] [id number] [address] [place] [address] Mar, BMI 50.0-59.9, adult Z68.43 and Bipolar disorder, in partial remission, most recent episode depressed F31.75 [place] [address] [address] [place] [id number] [address] [place] [address] Mar, Diabetes E11.9 ; Pure hyperc holesterolemia E78.00 ; Essential hypertension I10 ; Nausea with vomiting, unspecified R11.2 and Headache, unspecified headache type R51 [place] [address] [address] [facility] [id number] [address] [place] [address] Mar, Bipolar I disorder, most rec ent episode (or current) mixed, moderate F31.62 [place] [address] [address] [place] [id number] [address] [place] [address] Mar, Bipolar I disorder, most rec ent episode (or current) mixed, moderate F31.62 [place] [address] [facility] [id number] [address] [place] [address] 13 Mar, 2018 Chronic pain G89.29 [facility] [address] [facility] [id number] [address] [place] [address] Mar, Bipolar I disorder, most rec ent episode (or current) mixed, moderate F31.62 [facility] [address] [facility] [id number] [address] [place] [address] Feb, Bipolar I disorder, most rec ent episode (or current) mixed, moderate F31.62 [facility] [address] [facility] [id number] [address] [place] [address] 14 Feb, 2018 Chronic pain G89.29 [facility] [address] [facility] [id number] [address] [place] [address] Feb, Decubitus ulcer of right josselin t, stage 3 L89.893 and BMI 50.0-59.9, adult Z68.43 [facility] [address] [facility] [id number] [address] [place] [address] Feb, Bipolar I disorder, most rec ent episode (or current) mixed, moderate F31.62 [facility] [address] [facility] [id number] [address] [place] [address] Feb, [facility] [address] [facility] [id number] [address] [place] [address] January, [facility] [address] [facility] [id number] [address] [place] [address] January, Chronic pain G89.29 [facility] [address] [facility] [id number] [address] [place] [address] January, Bipolar I disorder, most rec ent episode (or current) mixed, moderate F31.62 [facility] [address] [facility] [id number] [address] [place] [address] January, Bipolar I disorder, most rec ent episode (or current) mixed, moderate F31.62 [place] [address] [address] [place] [id number] [address] [place] [address] Dec, Bipolar I disorder, most rec ent episode (or current) mixed, moderate F31.62 and BMI 50.0-59.9, adult Z68.43 [place] [address] [address] Dec, Bipolar I disorder, most rec ent episode (or current) mixed, moderate F31.62 [place] [address] [address] Dec, Chronic pain G89.29 [place] [address] [address] Dec, DM neuro manif type II E11.4 9 ; Right flank pain R10.9 ; jail 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 Z79.891 ; Encounter for medication monitoring Z51.81 and BMI 50.0-59.9, adult Z68.43 [place] [address] [address] Dec, Bipolar I disorder, most rec ent episode (or current) mixed, moderate F31.62 [place] [address] [address] Nov, Bipolar I disorder, most rec ent episode (or current) mixed, moderate F31.62 [place] [address] [address] Nov, Chronic pain G89.29 [place] [address] [address] [place] [id number] [place] [address] Nov, Bipolar I disorder, most rec ent episode (or current) mixed, moderate F31.62 [place] [address] [address] Nov, Hypokalemia E87.6 [place] [address] [address] [place] [id number] [place] [address] Nov, Bipolar I disorder, most rec ent episode (or current) mixed, moderate F31.62 [facility] [address] [facility] [id number] [address] [place] [address] Oct, Chronic pain G89.29 [facility] [address] [place] [id number] [address] [place] [address] Oct, BMI 50.0-59.9, adult Z68.43 and Bipolar I disorder, most recent episode (or current) mixed, moderate F31.62 [facility] [address] [facility] [id number] [address] [place] [address] Oct, Bipolar I disorder, most rec ent episode (or current) mixed, moderate F31.62 [place] [address] [address] [place] [id number] [address] [place] [address] Oct, [place] [address] [address] [place] [id number] [place] [address] Oct, Hypokalemia E87.6 [place] [address] [address] [place] [id number] [place] [address] Oct, DM neuro manif type II E11.4 9 [place] [address] [address] [place] [id number] [place] [address] Oct, Bipolar I disorder, most rec ent episode (or current) mixed, moderate F31.62 [place] [address] [address] [place] [id number] [address] [place] [address] Oct, Bipolar I disorder, most rec ent episode (or current) mixed, moderate F31.62 [place] [address] [facility] [id number] [address] [place] [address] Oct, Hyperkalemia E87.5 ; Falling R29.6 ; BMI 50.0-59.9, adult Z68.43 and Acute left ankle pain M25.572 [place] [address] [address] [place] [id number] [address] [place] [address] Oct, DM neuro manif type II E11.4 9 [place] [address] [address] [place] [id number] [address] [place] [address] Oct, [place] [address] [address] [place] [id number] [address] [place] [address] Sep, Chronic pain G89.29 [place] [address] [address] Sep, [place] [address] [address] Sep, Bilateral primary osteoarthr itis of knee M17.[address] [address] Sep, Generalized edema R60.1 [place] [address] [address] 16 Sep, 2017 Bipolar I disorder, most rec ent episode (or current) mixed, moderate F31.62 [place] [address] [address] Sep, Hypoxia R09.02 ; Other hyper volemia E87.79 ; Diabetes E11.9 ; Retinal edema H35.81 ; Hypokalemia E87.6 ; 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 [id number] [address] [place] [address] Aug, [facility] [address] [facility] [id number] [address] [place] [address] Aug, [facility] [address] [place] [id number] [address] [place] [address] Aug, Bipolar I disorder, most rec ent episode (or current) mixed, moderate F31.62 [facility] [address] [facility] [id number] [address] [place] [address] Aug, Bipolar I disorder, most rec ent episode (or current) mixed, moderate F31.62 [facility] [address] [place] [id number] [address] [place] [address] Aug, Chronic pain G89.29 [facility] [address] [place] [id number] [address] [place] [address] Jul, Bipolar I disorder, most rec ent episode (or current) mixed, moderate F31.62 [facility] [address] [facility] [id number] [address] [place] [address] Jul, Bipolar I disorder, most rec ent episode (or current) mixed, moderate F31.62 and BMI 60.0-69.9, adult Z68.44 [facility] [address] [place] [id number] [address] [place] [address] Jul, Bipolar I disorder, most rec ent episode (or current) mixed, moderate F31.62 [facility] [address] [facility] [id number] [address] [place] [address] Jul, Chronic pain G89.29 [facility] [address] [facility] [id number] [address] [place] [address] Jul, Bipolar I disorder, most rec ent episode (or current) mixed, moderate F31.62 [facility] [address] [place] [id number] [address] [place] [address] Jun, Polyneuropathy associated wi th underlying disease G63 and Diabetes E11.9 [facility] [address] [facility] [id number] [address] [place] [address] 16 Jun, 2017 Bipolar I disorder, most rec ent episode (or current) mixed, moderate F31.62 [facility] [address] [facility] [id number] [address] [place] [address] 09 Jun, 2017 Chronic pain G89.29 [facility] [address] [facility] [id number] [address] [place] [address] May, Bipolar I disorder, most rec ent episode (or current) mixed, moderate F31.62 [facility] [address] [facility] [id number] [address] [place] [address] May, Bipolar I disorder, most rec ent episode (or current) mixed, moderate F31.62 [place] [id number] [place] [id number] [address] [place] [phone] May, Diabetic polyneuropathy asso ciated with type 2 diabetes mellitus E11.42 [facility] [address] [facility] [id number] [address] [place] [phone] 18 May, 2017 Bipolar I disorder, most rec ent episode (or current) mixed, moderate F31.62 [facility] [address] [facility] [id number] [address] [place] [phone] May, Bipolar I disorder, most rec ent episode (or current) mixed, moderate F31.62 [facility] [address] [facility] [id number] [address] [place] [phone] May, Chronic pain G89.29 [facility] [address] [facility] [id number] [address] [place] [phone] Apr, Bipolar I disorder, most rec ent episode (or current) mixed, moderate F31.62 [facility] [address] [facility] [id number] [address] [place] [phone] Apr, [facility] [address] [facility] [id number] [address] [place] [phone] Apr, Chronic pain G89.29 and DM n euro manif type II E11.49 [facility] [address] [id number] [address] [place] [phone] Apr, [facility] [address] [facility] [id number] [address] [place] [id number] Apr, Bipolar I disorder, most rec ent episode (or current) mixed, moderate F31.62 [facility] [address] [facility] [id number] [address] [place] [phone] Apr, Chronic pain G89.29 [facility] [facility] [address] [id number] [address] [place] [address] Apr, Iliotibial band syndrome, le ft M76.32 [facility] [address] [facility] [id number] [address] [place] [address] Apr, Bipolar I disorder, most rec ent episode (or current) mixed, moderate F31.62 [facility] [address] [id number] [address] [place] [address] Mar, Bipolar I disorder, most rec ent episode (or current) mixed, moderate F31.62 [facility] [address] [facility] [id number] [address] [place] [address] Mar, Bipolar I disorder, most rec ent episode (or current) mixed, moderate F31.62 [facility] [address] [facility] [id number] [address] [place] [address] Mar, [facility] [address] [id number] [address] [place] [address] Mar, Bipolar I disorder, most rec ent episode (or current) mixed, moderate F31.62 [facility] [address] [facility] [id number] [address] [place] [address] Mar, Chronic pain G89.29 [facility] [address] [facility] [id number] [address] [place] [address] Mar, Bipolar I disorder, most rec ent episode (or current) mixed, moderate F31.62 [facility] [address] [id number] [address] [place] [address] Mar, Bipolar I disorder, most rec ent episode (or current) mixed, moderate F31.62 [facility] [address] [id number] [address] [place] [address] Mar, Acute pain of left knee M25. 562 ; Left hip pain M25.552 ; Generalized edema R60.1 and Tongue swelling R22.0 [facility] [address] [id number] [address] [place] [address] Mar, [facility] [address] [id number] [address] [place] [address] Feb, Chronic pain G89.29 [facility] [address] [facility] [id number] [address] [place] [address] Feb, Diabetes E11.9 [facility] [address] [id number] [address] [place] [address] January, Chronic pain G89.29 [facility] [address] [id number] [address] [place] [address] January, [facility] [address] [id number] [address] [place] [address] January, Bipolar I disorder, most rec ent episode (or current) mixed, moderate F31.62 [facility] [address] [id number] [address] [place] [address] Dec, Bipolar I disorder, most rec ent episode (or current) mixed, moderate F31.62 [facility] [address] [id number] [address] [place] [address] Dec, Chronic pain G89.29 [facility] [address] [facility] [id number] [address] [place] [address] Dec, Bipolar I disorder, most rec ent episode (or current) mixed, moderate F31.62 [facility] [address] [facility] [id number] [address] [place] [address] Dec, Diabetes E11.9 ; Essential h ypertension I10 ; Chronic pain G89.29 and Morbid obesity E66.01 [facility] [address] [id number] [address] [place] [address] Dec, [facility] [address] [facility] [id number] [address] [place] [address] Dec, Bipolar I disorder, most rec ent episode (or current) mixed, moderate F31.62 [facility] [address] [id number] [address] [place] [address] Dec, Bipolar I disorder, most rec ent episode (or current) mixed, moderate F31.62 [facility] [address] [facility] [id number] [address] [place] [address] Nov, Chronic pain G89.29 [facility] [address] [facility] [id number] [address] [place] [address] Nov, Bipolar I disorder, most rec ent episode (or current) mixed, moderate F31.62 [facility] [address] [facility] [id number] [address] [place] [address] Nov, [facility] [address] [facility] [id number] [address] [place] [address] Nov, Bipolar I disorder, most rec ent episode (or current) mixed, moderate F31.62 [facility] [address] [facility] [id number] [address] [place] [address] Nov, Bipolar I disorder, most rec ent episode (or current) mixed, moderate F31.62 [facility] [address] [facility] [id number] [address] [place] [address] Nov, [facility] [address] [facility] [id number] [address] [place] [address] Nov, [facility] [address] [facility] [id number] [address] [place] [address] Nov, [facility] [address] [facility] [id number] [address] [place] [address] Oct, Chronic pain G89.29 [facility] [address] [facility] [id number] [address] [place] [address] Oct, Bipolar I disorder, most rec ent episode (or current) mixed, moderate F31.62 [facility] [address] [facility] [id number] [address] [place] [address] Oct, [facility] [address] 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 [id number] [address] [place] [address] Oct, [facility] [address] [facility] [id number] [address] [place] [address] Oct, Diabetes E11.9 [facility] [address] [facility] [id number] [address] [place] [address] Oct, Bipolar I disorder, most rec ent episode (or current) mixed, moderate F31.62 [facility] [address] [facility] [id number] [address] [place] [address] Sep, Chronic pain G89.29 [facility] [address] [facility] [id number] [address] [place] [address] Sep, Chronic pain G89.29 [facility] [address] [facility] [id number] [address] [place] [address] Aug, Chronic pain G89.29 [facility] [address] [facility] [id number] [address] [place] [address] Jul, [facility] [address] [place] [id number] [address] [place] [address] Jul, Diabetes E11.9 [facility] [address] [facility] [id number] [address] [place] [address] Jul, Chronic pain G89.29 [facility] [address] [facility] [id number] [address] [place] [address] Jul, Bipolar I disorder, most rec ent episode (or current) mixed, moderate F31.62 [facility] [address] [facility] [id number] [address] [place] [address] Jun, Bipolar I disorder, most rec ent episode (or current) mixed, moderate F31.62 [place] [address] [facility] [id number] [address] [place] [address] Jun, [facility] [address] [facility] [id number] [address] [place] [address] Jun, Bipolar I disorder, most rec ent episode (or current) mixed, moderate F31.62 [place] [address] [place] [id number] [address] [place] [address] May, Insomnia, unspecified type G 47.00 [place] [address] [facility] [id number] [address] [place] [address] May, Bipolar I disorder, most rec ent episode (or current) mixed, moderate F31.62 [place] [address] [place] [id number] [address] [place] [address] 14 May, 2016 [facility] [address] [facility] [id number] [address] [place] [address] 08 May, 2016 Bipolar I disorder, most rec ent episode (or current) mixed, moderate F31.62 [place] [address] [facility] [id number] [address] [place] [address] 06 May, 2016 Diabetes E11.9 and Essential hypertension I10 [facility] [address] [facility] [id number] [address] [place] [address] Apr, Chronic pain G89.29 [facility] [address] [facility] [id number] [address] [place] [address] Apr, Bipolar I disorder, most rec ent episode (or current) mixed, moderate F31.62 [facility] [address] [facility] [id number] [address] [place] [address] Apr, [facility] [address] [facility] [id number] [address] [place] [address] Apr, [facility] [address] [place] [id number] [address] [place] [address] Mar, Chronic pain G89.29 ; Headac he, unspecified headache type R51 ; Neuropathy G62.9 ; Pain of right hip joint M25.551 and Essential hypertension I10 [place] [address] [facility] [id number] [address] [place] [address] Mar, Chronic pain G89.29 [place] [address] [place] [id number] [address] [place] [address] Mar, Bipolar I disorder, most rec ent episode (or current) mixed, moderate F31.62 [place] [address] [facility] [id number] [address] [place] [address] Feb, Bipolar I disorder, most rec ent episode (or current) mixed, moderate F31.62 and Insomnia, unspecified type G47.00 [place] [address] [facility] [id number] [address] [place] [address] Feb, Chronic pain G89.29 [place] [address] [facility] [id number] [address] [place] [address] Feb, Bipolar I disorder, most rec ent episode (or current) mixed, moderate F31.62 [place] [address] [facility] [id number] [address] [place] [address] January, Bipolar I disorder, most rec ent episode (or current) mixed, moderate F31.62 [place] [address] [facility] [id number] [address] [place] [address] January, Chronic pain G89.29 [place] [address] [facility] [id number] [address] [place] [address] January, Chronic pain G89.29 and Esse ntial hypertension I10 [facility] [address] [facility] [id number] [address] [place] [address] January, Bipolar I disorder, most rec ent episode (or current) mixed, moderate F31.62 [facility] [address] [facility] [id number] [address] [place] [address] Dec, [facility] [address] [facility] [id number] [address] [place] [address] Dec, [facility] [address] [place] [id number] [address] [place] [address] Dec, [facility] [address] [place] [id number] [address] [place] [address] Dec, [facility] [address] [place] [id number] [address] [place] [address] Nov, Reactive airway disease J45. 909 [facility] [address] [place] [id number] [address] [place] [address] Nov, [facility] [address] [place] [id number] [address] [place] [address] Nov, [facility] [address] [facility] [id number] [address] [place] [address] Nov, [facility] [address] [facility] [id number] [address] [place] [address] Nov, [facility] [address] [facility] [id number] [address] [place] [address] Nov, Onychomycosis B35.1 ; Hammer toe M20.40 ; [place] or callus L84 and DM neuro manif type II E11.49 [facility] [address] [facility] [id number] [address] [place] [address] 15 Nov, 2015 Chronic pain G89.29 ; Leukoc ytosis D72.829 and Diabetes E11.9 [place] [address] [address] Nov, [place] [address] [address] Oct, Bronchitis J40 [place] [address] [address] Oct, [place] [address] [address] Oct, [place] [address] [address] Oct, Mastoiditis, unspecified lat erality H70.90 and Type 2 diabetes mellitus with complication E11.8 [place] [address] [address] Sep, [place] [address] [address] Sep, Dysuria R30.0 ; Cough R05 ; Benign prostatic hyperplasia with lower urinary tract symptoms, unspecified morphology N40.1 ; Hypokalemia E87.6 and Eustachian tube dysfunction, unspecified laterality H69.80 [place] [address] [address] Sep, Moderate mixed bipolar I dis order F31.62 [place] [address] [address] Sep, Hypokalemia E87.6 [place] [address] [address] Sep, [place] [address] [address] Sep, Upper respiratory tract infe ction, unspecified type J06.9 [place] [address] [address] Aug, [facility] [address] [id number] [address] [place] [address] Aug, Dysuria R30.0 [facility] [address] [id number] [address] [place] [address] Aug, [facility] [address] [id number] [address] [place] [address] Jul, [facility] [address] [id number] [address] [place] [address] Jul, [facility] [address] [id number] [address] [place] [address] Jul, [facility] [address] [id number] [address] [place] [address] Jul, [facility] [address] [id number] [address] [place] [address] Jun, [facility] [address] [id number] [address] [place] [address] Jun, [facility] [address] [id number] [address] [place] [address] Jun, [facility] [address] [id number] [address] [place] [address] May, [facility] [address] [id number] [address] [place] [address] May, Bipolar I disorder, most rec ent episode (or current) mixed, moderate 296.62 [facility] [address] [id number] [address] [place] [address] 16 May, 2015 [facility] [address] [id number] [address] [place] [address] May, Bipolar I disorder, most rec ent episode (or current) mixed, moderate 296.62 and Major depressive disorder, recurrent episode, severe, specified as with psychotic behavior 296.34 [facility] [address] [id number] [address] [place] [address] May, Bipolar I disorder, most rec ent episode (or current) mixed, moderate 296.62 [facility] [address] [id number] [address] [place] [address] May, [facility] [address] [facility] [id number] [address] [place] [address] Apr, [facility] [address] [id number] [address] [place] [address] Apr, [facility] [address] [facility] [id number] [address] [place] [address] Apr, Unspecified disorder of kidn ey and ureter 593.9 and Diabetes mellitus type 2, uncontrolled 250.02 [facility] [address] [id number] [address] [place] [address] Apr, [facility] [address] [id number] [address] [place] [address] Apr, [facility] [address] [id number] [address] [place] [address] Apr, [facility] [address] [id number] [address] [place] [address] Apr, [facility] [address] [facility] [id number] [address] [place] [address] Apr, Diabetes mellitus type II, u ncontrolled 250.02 [facility] [address] [id number] [address] [place] [address] Apr, [facility] [address] [id number] [address] [place] [address] Mar, [facility] [address] [id number] [address] [place] [address] Mar, [facility] [address] [facility] [id number] [address] [place] [address] Mar, [facility] [address] [facility] [id number] [address] [place] [address] Mar, Major depressive disorder, r ecurrent episode, severe, specified as with psychotic behavior 296.34 and Bipolar I disorder, most recent episode (or current) mixed, moderate 296.62 [facility] [address] [place] [id number] [address] [place] [address] Mar, Diabetes 250.00 ; Anuria 788 .5 ; Nausea and vomiting 787.01 and Diarrhea 787.91 [facility] [address] [place] [id number] [address] [place] [address] Mar, Diabetes 250.00 [facility] [address] [address] Mar, [facility] [address] [address] Mar, Diabetes 250.00 [facility] [address] [place] [id number] [address] [place] [address] Mar, [facility] [address] [place] [id number] [address] [place] [address] Mar, [facility] [address] [address] Mar, [facility] [address] [place] [id number] [address] [place] [address] Mar, [facility] [address] [place] [id number] [address] [place] [address] Mar, Bipolar I disorder, most rec ent episode (or current) mixed, moderate 296.62 and Major depressive disorder, recurrent episode, severe, specified as with psychotic behavior 296.34 [facility] [address] [place] [id number] [address] [place] [address] Mar, Magnesium deficiency 275.2 ; Hypokalemia 276.8 ; Nausea & vomiting 787.01 and Diabetes mellitus type 2, uncontrolled 250.02 [facility] [address] [place] [id number] [address] [place] [address] Feb, [facility] [address] [place] [id number] [address] [place] [address] Feb, Bipolar I disorder, most rec ent episode (or current) mixed, moderate 296.62 [facility] [address] [place] [id number] [address] [place] [address] Feb, Nausea and vomiting 787.01 ; Left elbow pain 719.42 ; Anuria 788.5 and Diabetes 250.00 [facility] [address] [address] Feb, [facility] [address] [address] Feb, Hypopotassemia 276.8 and Hyp okalemia 276.8 [facility] [id number] [place] [address] Feb, Hypopotassemia 276.8 and Hyp okalemia 276.8 [facility] [id number] [place] [address] Feb, Seborrheic keratoses 702.19 [facility] [address] [address] Feb, Hypopotassemia 276.8 and Low magnesium levels 275.2 [facility] [id number] [place] [address] January, [facility] [id number] [place] [address] January, [facility] [id number] [place] [address] January, [facility] [id number] [place] [address] January, Scalp lesion 709.9 [facility] [id number] [place] [address] January, [facility] [id number] [place] [address] 30 Dec, 2014 Tear of medial cartilage or meniscus of knee, current 836.0 and Chondromalacia 733.92 [facility] [address] [id number] [address] [place] [address] Dec, [facility] [address] [id number] [address] [place] [address] Dec, 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 [address] [id number] [address] [place] [address] Dec, [facility] [address] [id number] [address] [place] [address] Nov, [facility] [address] [id number] [address] [place] [address] Nov, [facility] [address] [id number] [address] [place] [address] Nov, [facility] [address] [id number] [address] [place] [address] Nov, [facility] [address] [id number] [address] [place] [address] Nov, [facility] [address] [id number] [address] [place] [address] Nov, [facility] [address] [id number] [address] [place] [address] Nov, [facility] [address] [id number] [address] [place] [address] Nov, [facility] [address] [id number] [address] [place] [address] Nov, [facility] [address] [id number] [address] [place] [address], [place] [address] Nov, [facility] [address] [id number] [place] [address], [place] [address] Nov, [facility] [address] [id number] [address] [place] [address], [place] [address] Nov, [facility] [address] [id number] [address] [place] [address], [place] [address] Oct, 2014 [facility] [address] [id number] [address] [place] [address], [place] [address] Oct, 2014 [facility] [address] [id number] [address] [place] [address], [place] [address] Oct, 2014 [facility] [address] [id number] [address] [place] [address], [place] [address] Oct, 2014 [facility] [address] [id number] [address] [place] [address], [place] [address] Oct, 2014 [facility] [place] [address] [id number] [address] [place] [address], [place] [address] Oct, [facility] [place] [address] [id number] [address] [place] [address], [place] [address] Oct, [facility] [place] [address] [id number] [address] [place] [address], [place] [address] Oct, 2014 [facility] [place] [address] [id number] [address] [place] [address], [place] [address] Oct, [facility] [place] [address] [id number] [address] [place] [address], [place] [address] Sep, [facility] [place] [address] [id number] [address] [place] [address], [place] [address] Sep, [facility] [place] [address] [id number] [address] [place] [address], [place] [address] Sep, [facility] [place] [facility] [address] [id number] [address] [place] [address], [place] [address] Sep, [facility] [address] [id number] [address] [place] [address], [place] [address] Sep, [facility] [address] [id number] [address] [place] [address], [place] [address] Sep, [facility] [address] [id number] [address] [place] [address], [place] [address] Sep, [facility] [address] [id number] [address] [place] [address], [place] [address] Sep, [facility] [address] [id number] [address] [place] [address], [place] [address] Sep, [facility] [address] [id number] [address] [place] [address], [place] [address] Sep, [facility] [address] [id number] [address] [place] [address], [place] [address] Sep, [facility] [address] [id number] [address] [place] [address], [place] [address] Sep, [facility] [address] [id number] [address] [place] [address], [place] [address] Sep, [facility] [address] [id number] [address] [place] [address], [place] [address] Sep, [facility] [address] [id number] [address] [place] [address], [place] [address] Sep, [facility] [address] [id number] [address] [place] [address], [place] [address] Sep, [facility] [address] [id number] [address] [place] [address], [place] [address] Aug, [facility] [address] [id number] [address] [place] [address], [place] [address] Aug, [facility] [address] [id number] [address] [place] [address], [place] [address] Aug, [facility] [address] [id number] [address] [place] [address] Aug, [facility] [address] [id number] [address] [place] [address] Aug, [facility] [address] [id number] [address] [place] [address] Aug, [facility] [address] [id number] [address] [place] [address] Aug, [facility] [address] [id number] [address] [place] [address], [place] [address] Aug, [facility] [address] [id number] [address] [place] [address], [place] [address] Aug, [facility] [address] [id number] [address] [place] [address], [place] [address] Aug, [facility] [address] [id number] [address] [place] [address], [place] [address] Aug, [facility] [address] [place] [id number] Aug, [facility] [address] [id number] [address] [place] [address], [place] [address] Aug, [facility] [address] [id number] [address] [place] [address], [place] [address] Aug, [facility] [address] [id number] [address] [place] [address], [place] [address] Aug, [facility] [address] [id number] [address] [place] [address], [place] [address] Aug, [facility] [address] [id number] [address] [place] [address], [place] [address] Aug, [facility] [address] [id number] [address] [place] [address], [place] [address] Aug, [facility] [address] [id number] [address] [place] [address], [place] [address] Aug, [facility] [address] [id number] [address] [place] [address], [place] [address] Aug, [facility] [address] [id number] [address] [place] [address], [place] [address] Aug, [facility] [address] [id number] [address] [place] [address], [place] [address] Aug, [facility] [address] [id number] [address] [place] [address], [place] [address] Aug, [facility] [address] [id number] [address] [place] [address], [place] [address] Aug, [facility] [address] [id number] [address] [place] [address], [place] [address] Aug, [facility] [address] [id number] [address] [place] [address], [place] [address] Aug, [facility] [address] [id number] [address] [place] [address], [place] [address] Aug, [facility] [address] [id number] [address] [place] [address], [place] [address] Aug, [facility] [address] [id number] [address] [place] [address], [place] [address] Aug, [facility] [address] [id number] [address] [place] [address], [place] [address] Aug, [facility] [address] [id number] [address] [place] [address], [place] [address] Jul, [facility] [address] [id number] [address] [place] [address], [place] [address] Jul, [facility] [address] [id number] [address] [place] [address], [place] [address] Jul, [facility] [address] [id number] [address] [place] [address], [place] [address] Jul, [facility] [address] [id number] [address] [place] [address], [place] [address] Jul, [facility] [address] [id number] [address] [place] [address], [place] [address] Jul, [facility] [address] [id number] [address] [place] [address], [place] [address] Jul, [facility] [address] [id number] [address] [place] [address], [place] [address] Jul, [facility] [address] [id number] [address] [place] [address], [place] [address] Jul, [facility] [address] [id number] [address] [place] [address], [place] [address] Jul, [facility] [address] [id number] [address] [place] [address], [place] [address] Jun, [facility] [address] [id number] [address] [place] [address], [place] [address] Jun, [facility] [address] [id number] [address] [place] [address], [place] [address] Jun, [facility] [address] [id number] [address] [place] [address], [place] [address] Jun, [facility] [address] [id number] [address] [place] [address], [place] [address] Jun, [facility] [address] [id number] [address] [place] [address], [place] [address] Jun, [facility] [address] [id number] [address] [place] [address], [place] [address] Jun, [facility] [address] [id number] [address] [place] [address], [place] [address] Jun, [facility] [address] [id number] [address] [place] [address], [place] [address] Jun, [facility] [address] [id number] [address] [place] [address], [place] [address] Jun, [facility] [address] [id number] [address] [place] [address] 29 Sep, 2013 [facility] [address] [id number] [address] [place] [address], [place] [address] 29 Sep, 2013 [facility] [address] [id number] [address] [place] [address], [place] [address] 26 Sep, 2013 [facility] [address] [id number] [address] [place] [address], [place] [address] 26 Sep, 2013 [facility] [address] [id number] [address] [place] [address], [place] [address] 17 May, 2013 [facility] [address] [id number] [address] [place] [address], [place] [address] 17 May, 2013 [facility] [address] [id number] [address] [place] [address], [place] [address] 15 May, 2013 [facility] [address] [id number] [address] [place] [address], [place] [address] 15 May, 2013 [facility] [address] [id number] [address] [place] [address], [place] [address] 15 May, 2013 [facility] [address] [id number] [address] [place] [address], [place] [address] 15 May, 2013 [facility] [address] [id number] [address] [place] [address], [place] [address] 10 May, 2013 [facility] [address] [id number] [address] [place] [address], [place] [address] 10 May, 2013 [facility] [address] [id number] [address] [place] [address], [place] [address] 09 May, 2013 [facility] [address] [id number] [address] [place] [address], [place] [address] 09 May, 2013 [facility] [address] [id number] [address] [place] [address], [place] [address] 04 Sep, 2013 [facility] [address] [id number] [address] [place] [address], [place] [address] May, [facility] [address] [id number] [address] [place] [address] Apr, [facility] [address] [id number] [address] [place] [address], [place] [address] Apr, [facility] [address] [id number] [address] [place] [address], [place] [address] Apr, [facility] [address] [id number] [address] [place] [address], [place] [address] Apr, [facility] [address] [id number] [address] [place] [address], [place] [address] Apr, [facility] [address] [id number] [address] [place] [address], [place] [address] Apr, [facility] [address] [id number] [address] [place] [address], [place] [address] Apr, [facility] [place] [facility] [address] [id number] [address] [place] [address], [place] [address] Apr, [facility] [address] [id number] [address] [place] [address], [place] [address] Apr, [facility] [place] [facility] [address] [id number] [address] [place] [address], [place] [address] Apr, [facility] [place] [facility] [address] [id number] [address] [place] [address], [place] [address] Apr, [facility] [address] [id number] [address] [place] [address], [place] [address] Apr, [facility] [address] [id number] [address] [place] [address], [place] [address] Apr, [facility] [address] [id number] [address] [place] [address], [place] [address] Apr, [facility] [address] [id number] [address] [place] [address], [place] [address] Apr, [facility] [address] [id number] [address] [place] [address] Mar, 2013 [facility] [address] [id number] [address] [place] [address] Mar, 2013 [facility] [address] [id number] [address] [place] [address] Mar, 2013 [facility] [address] [id number] [address] [place] [address], [place] [address] Mar, 2013 [facility] [address] [id number] [address] [place] [address], [place] [address] Mar, 2013 [facility] [address] [id number] [address] [place] [address], [place] [address] Mar, [facility] [address] [id number] [address] [place] [address], [place] [address] Mar, 2013 [facility] [address] [id number] [address] [place] [address], [place] [address] Mar, 2013 [facility] [address] [id number] [address] [place] [address], [place] [address] Mar, [facility] [address] [id number] [address] [place] [address], [place] [address] Mar, 2013 [facility] [address] [id number] [address] [place] [address], [place] [address] Mar, 2013 [facility] [address] [id number] [address] [place] [address], [place] [address] Mar, 2013 [facility] [address] [id number] [address] [place] [address], [place] [address] Mar, 2013 [facility] [address] [id number] [address] [place] [address], [place] [address] Mar, 2013 [facility] [address] [id number] [address] [place] [address], [place] [address] Mar, 2013 [facility] [address] [id number] [address] [place] [address], [place] [address] Mar, [facility] [address] [id number] [address] [place] [address] Mar, [facility] [address] [id number] [address] [place] [address] Mar, [facility] [address] [id number] [address] [place] [address] Feb, [facility] [address] [id number] [address] [place] [address], [place] [address] Feb, [facility] [address] [id number] [address] [place] [address] Feb, [facility] [address] [id number] [address] [place] [address], [place] [address] Feb, [facility] [address] [id number] [address] [place] [address], [place] [address] Feb, [facility] [address] [id number] [address] [place] [address], [place] [address] Feb, [facility] [address] [id number] [address] [place] [address], [place] [address] Feb, [facility] [address] [id number] [address] [place] [address], [place] [address] Feb, [facility] [address] [id number] [address] [place] [address], [place] [address] Feb, [facility] [address] [id number] [address] [place] [address], [place] [address] Feb, [facility] [address] [id number] [address] [place] [address], [place] [address] Feb, [facility] [address] [id number] [address] [place] [address], [place] [address] Feb, [facility] [address] [id number] [address] [place] [address], [place] [address] Feb, [facility] [address] [id number] [address] [place] [address] Feb, [facility] [address] [id number] [address] [place] [address], [place] [address] January, [facility] [address] [id number] [address] [place] [address], [place] [address] January, [facility] [address] [id number] [address] [place] [address], [place] [address] January, [facility] [address] [id number] [address] [place] [address], [place] [address] January, [facility] [address] [id number] [address] [place] [address], [place] [address] January, [facility] [address] [id number] [address] [place] [address], [place] [address] January, [facility] [address] [id number] [address] [place] [address], [place] [address] January, [facility] [address] [id number] [address] [place] [address], [place] [address] January, [facility] [address] [id number] [address] [place] [address], [place] [address] January, [facility] [address] [id number] [address] [place] [address], [place] [address] January, [facility] [address] [id number] [address] [place] [address], [place] [address] January, [facility] [address] [id number] [address] [place] [address], [place] [address] January, [facility] [address] [id number] [address] [place] [address], [place] [address] January, [facility] [address] [id number] [address] [place] [address], [place] [address] January, [facility] [address] [id number] [address] [place] [address], [place] [address] Dec, [facility] [address] [id number] [address] [place] [address], [place] [address] Dec, [facility] [address] [id number] [address] [place] [address], [place] [address] Dec, [facility] [address] [id number] [address] [place] [address], [place] [address] Dec, [facility] [address] [id number] [address] [place] [address], [place] [address] Dec, [facility] [address] [id number] [address] [place] [address], [place] [address] Dec, [facility] [address] [id number] [address] [place] [address], [place] [address] Dec, [facility] [address] [id number] [address] [place] [address], [place] [address] Dec, [facility] [address] [id number] [address] [place] [address], [place] [address] Dec, [facility] [address] [id number] [address] [place] [address], [place] [address] Dec, [facility] [address] [id number] [address] [place] [address], [place] [address] Nov, [facility] [address] [id number] [address] [place] [address], [place] [address] Nov, [facility] [address] [id number] [address] [place] [address], [place] [address] Nov, [facility] [address] [id number] [address] [place] [address], [place] [address] Nov, [facility] [address] [id number] [address] [place] [address], [place] [address] Nov, [facility] [address] [id number] [address] [place] [address], [place] [address] Nov, [facility] [address] [id number] [address] [place] [address], [place] [address] Nov, [facility] [address] [id number] [address] [place] [address] Nov, [facility] [address] [id number] [address] [place] [address], [place] [address] Nov, [facility] [address] [id number] [address] [place] [address], [place] [address] Nov, [facility] [address] [id number] [address] [place] [address], [place] [address] Oct, [facility] [address] [id number] [address] [place] [address], [place] [address] Oct, [facility] [address] [id number] [address] [place] [address], [place] [address] Oct, [facility] [address] [id number] [address] [place] [address], [place] [address] Oct, [facility] [address] [id number] [address] [place] [address], [place] [address] Oct, [facility] [address] [id number] [address] [place] [address], [place] [address] Oct, [facility] [address] [id number] [address] [place] [address], [place] [address] Oct, [facility] [address] [id number] [address] [place] [address], [place] [address] Oct, [facility] [address] [id number] [address] [place] [address], [place] [address] 05 Oct, 2013 [facility] [address] [id number] [address] [place] [address], [place] [address] 05 Oct, 2013 [facility] [address] [id number] [address] [place] [address], [place] [address] Oct, [facility] [address] [id number] [address] [place] [address], [place] [address] Oct, [facility] [address] [id number] [address] [place] [address] Oct, [facility] [address] [id number] [address] [place] [address], [place] [address] Oct, [facility] [address] [id number] [address] [place] [address], [place] [address] Sep, [facility] [address] [id number] [address] [place] [address], [place] [address] Sep, [facility] [address] [id number] [address] [place] [address], [place] [address] Sep, [facility] [address] [id number] [address] [place] [address], [place] [address] Sep, [facility] [address] [id number] [address] [place] [address], [place] [address] Sep, [facility] [address] [id number] [address] [place] [address], [place] [address] Sep, [facility] [address] [id number] [address] [place] [address], [place] [address] Sep, [facility] [address] [id number] [address] [place] [address], [place] [address] Sep, [facility] [address] [id number] [address] [place] [address], [place] [address] Sep, [facility] [address] [id number] [address] [place] [address], [place] [address] Sep, [facility] [address] [id number] [address] [place] [address], [place] [address] Aug, [facility] [address] [id number] [address] [place] [address], [place] [address] Aug, [facility] [address] [id number] [address] [place] [address], [place] [address] Jul, [facility] [address] [id number] [address] [place] [address], [place] [address] Jul, [facility] [address] [id number] [address] [place] [address], [place] [address] Jul, [facility] [address] [id number] [address] [place] [address], [place] [address] Jul, [facility] [address] [id number] [address] [place] [address], [place] [address] Jul, [facility] [address] [id number] [address] [place] [address], [place] [address] Jul, [facility] [address] [id number] [address] [place] [address], [place] [address] Jul, [facility] [address] [id number] [address] [place] [address], [place] [address] Jul, [facility] [address] [id number] [address] [place] [address], [place] [address] Jul, [facility] [address] [id number] [address] [place] [address], [place] [address] Jul, [facility] [address] [id number] [address] [place] [address], [place] [address] Jul, [facility] [address] [id number] [address] [place] [address], [place] [address] Jul, [facility] [facility] [address] [id number] [address] [place] [address], [place] [address] Jul, [facility] [address] [id number] [address] [place] [address], [place] [address] Jul, [facility] [address] [id number] [address] [place] [address], [place] [address] Jul, [facility] [address] [id number] [address] [place] [address], [place] [address] Jul, [facility] [address] [id number] [address] [place] [address] Jul, [facility] [address] [id number] [address] [place] [address], [place] [address] Jul, 2012 [facility] [address] [id number] [address] [place] [address], [place] [address] Jul, 2012 [facility] [address] [id number] [address] [place] [address], [place] [address] Jun, 2012 [facility] [address] [id number] [address] [place] [address], [place] [address] Jun, 2012 [facility] [address] [id number] [address] [place] [address], [place] [address] Jun, 2012 [facility] [address] [id number] [address] [place] [address], [place] [address] Jun, 2012 [facility] [address] [id number] [address] [place] [address], [place] [address] Jun, 2012 [facility] [address] [id number] [address] [place] [address], [place] [address] Jun, [facility] [address] [id number] [address] [place] [address], [place] [address] Jun, [facility] [address] [id number] [address] [place] [address], [place] [address] Jun, [facility] [address] [id number] [address] [place] [address], [place] [address] Jun, [facility] [address] [id number] [address] [place] [address] Jun, [facility] [address] [id number] [address] [place] [address], [place] [address] Jun, [facility] [address] [id number] [address] [place] [address], [place] [address] May, [facility] [address] [id number] [address] [place] [address], [place] [address] May, [facility] [address] [id number] [address] [place] [address] 19 May, 2013 [facility] [address] [id number] [address] [place] [address], [place] [address] 17 May, 2012 [facility] [address] [id number] [address] [place] [address], [place] [address] 11 May, 2013 [facility] [address] [id number] [address] [place] [address], [place] [address] 10 May, 2013 [facility] [address] [id number] [address] [place] [address], [place] [address] 09 May, 2013 [facility] [address] [id number] [address] [place] [address], [place] [address] 05 May, 2013 [facility] [address] [id number] [address] [place] [address], [place] [address] Apr, [facility] [address] [id number] [address] [place] [address], [place] [address] Apr, [facility] [address] [id number] [address] [place] [address], [place] [address] Apr, [facility] [address] [id number] [address] [place] [address], [place] [address] Apr, [facility] [address] [id number] [address] [place] [address], [place] [address] Apr, [facility] [address] [id number] [address] [place] [address], [place] [address] Mar, [facility] [address] [id number] [address] [place] [address], [place] [address] Mar, [facility] [address] [id number] [address] [place] [address], [place] [address] Mar, [facility] [address] [id number] [address] [place] [address], [place] [address] Mar, [facility] [address] [id number] [address] [place] [address], [place] [address] Mar, [facility] [address] [id number] [address] [place] [address], [place] [address] Mar, [facility] [address] [id number] [address] [place] [address], [place] [address] Mar, [facility] [address] [id number] [address] [place] [address], [place] [address] Mar, [facility] [address] [id number] [address] [place] [address], [place] [address] Feb, [facility] [address] [id number] [address] [place] [address], [place] [address] Feb, [facility] [address] [id number] [address] [place] [address], [place] [address] January, [facility] [address] [id number] [address] [place] [address], [place] [address] January, [facility] [address] [id number] [address] [place] [address], [place] [address] Dec, [facility] [address] [id number] [address] [place] [address], [place] [address] Dec, [facility] [address] [id number] [address] [place] [address], [place] [address] Nov, [facility] [address] [id number] [address] [place] [address], [place] [address] Nov, [facility] [address] [id number] [address] [place] [address], [place] [address] Nov, [facility] [address] [id number] [address] [place] [address], [place] [address] Nov, [facility] [address] [id number] [address] [place] [address], [place] [address] Oct, [facility] [address] [id number] [address] [place] [address], [place] [address] Oct, [facility] [address] [id number] [address] [place] [address], [place] [address] Oct, [facility] [address] [id number] [address] [place] [address], [place] [address] Oct, [facility] [address] [id number] [address] [place] [address], [place] [address] 16 Oct, 2012 [facility] [address] [id number] [address] [place] [address], [place] [address] 14 Oct, 2012 [facility] [address] [id number] [address] [place] [address], [place] [address] 08 Oct, 2012 [facility] [address] [id number] [address] [place] [address], [place] [address] 07 Oct, 2012 [facility] [address] [id number] [address] [place] [address], [place] [address] 03 Oct, 2012 [facility] [address] [id number] [address] [place] [address], [place] [address] Sep, [facility] [address] [id number] [address] [place] [address], [place] [address] Sep, [facility] [address] [id number] [address] [place] [address], [place] [address] Sep, [facility] [address] [id number] [address] [place] [address], [place] [address] Sep, [facility] [address] [id number] [address] [place] [address], [place] [address] Sep, [facility] [address] [id number] [address] [place] [address], [place] [address] Sep, [facility] [address] [id number] [address] [place] [address], [place] [address] Sep, [facility] [address] [id number] [address] [place] [address], [place] [address] Sep, [facility] [address] [id number] [address] [place] [address], [place] [address] Aug, [facility] [address] [id number] [address] [place] [address], [place] [address] 31 Aug, 2012 [facility] [address] [id number] [address] [place] [address], [place] [address] Aug, [facility] [address] [id number] [address] [place] [address], [place] [address] Aug, [facility] [address] [id number] [address] [place] [address], [place] [address] Aug, [facility] [address] [id number] [address] [place] [address], [place] [address] Aug, [facility] [address] [id number] [address] [place] [address], [place] [address] Aug, [facility] [address] [id number] [address] [place] [address], [place] [address] Aug, [facility] [address] [id number] [address] [place] [address], [place] [address] Jul, [facility] [address] [id number] [address] [place] [address], [place] [address] Jul, [facility] [address] [id number] [address] [place] [address], [place] [address] Jul, [facility] [address] [id number] [address] [place] [address], [place] [address] Jul, [facility] [address] [id number] [address] [place] [address], [place] [address] Jul, [facility] [address] [id number] [address] [place] [address], [place] [address] Jul, [facility] [address] [id number] [address] [place] [address], [place] [address] Jun, [facility] [address] [id number] [address] [place] [address], [place] [address] Jun, [facility] [address] [id number] [address] [place] [address], [place] [address] Jun, [facility] [address] [id number] [address] [place] [address], [place] [address] Jun, [facility] [address] [id number] [address] [place] [address], [place] [address] Jun, [facility] [address] [id number] [address] [place] [address], [place] [address] Jun, [facility] [address] [id number] [address] [place] [address], [place] [address] Jun, [facility] [address] [id number] [address] [place] [address], [place] [address] Jun, [facility] [address] [id number] [address] [place] [address], [place] [address] 10 Jun, 2012 [facility] [address] [id number] [address] [place] [address], [place] [address] 26 May, 2012 [facility] [address] [id number] [address] [place] [address], [place] [address] 24 May, 2012 [facility] [address] [id number] [address] [place] [address], [place] [address] 18 May, 2012 [facility] [address] [id number] [address] [place] [address], [place] [address] 30 Apr, 2012 [facility] [address] [id number] [address] [place] [address], [place] [address] 29 Apr, 2012 [facility] [address] [id number] [address] [place] [address], [place] [address] Apr, [facility] [address] [id number] [address] [place] [address], [place] [address] 14 Apr, 2012 [facility] [address] [id number] [address] [place] [address], [place] [address] Apr, [facility] [address] [id number] [address] [place] [address], [place] [address] Apr, [facility] [address] [id number] [address] [place] [address] Mar, [facility] [address] [id number] [address] [place] [address], [place] [address] Mar, [facility] [address] [id number] [address] [place] [address], [place] [address] Mar, [facility] [address] [id number] [address] [place] [address], [place] [address] Mar, [facility] [address] [id number] [address] [place] [address], [place] [address] Feb, [facility] [address] [id number] [address] [place] [address], [place] [address] Feb, [facility] [address] [id number] [address] [place] [address], [place] [address] Feb, [facility] [address] [id number] [address] [place] [address], [place] [address] Feb, [facility] [address] [id number] [address] [place] [address], [place] [address] Feb, [facility] [address] [id number] [address] [place] [address], [place] [address] January, [facility] [address] [id number] [address] [place] [address], [place] [address] January, [facility] [address] [id number] [address] [place] [address], [place] [address] January, [facility] [address] [id number] [address] [place] [address], [place] [address] January, [facility] [address] [id number] [address] [place] [address], [place] [address] January, [facility] [address] [id number] [address] [place] [address], [place] [address] January, [facility] [address] [id number] [address] [place] [address], [place] [address] Dec, [facility] [address] [id number] [address] [place] [address], [place] [address] 24 Dec, 2011 [facility] [address] [id number] [address] [place] [address], [place] [address] 17 Dec, 2011 [facility] [address] [id number] [address] [place] [address], [place] [address] 09 Dec, 2011 [facility] [address] [id number] [address] [place] [address], [place] [address] 06 Dec, 2011 [facility] [address] [id number] [address] [place] [address], [place] [address] 27 Nov, 2011 [facility] [address] [id number] [address] [place] [address], [place] [address] 14 Nov, 2011 [facility] [address] [id number] [address] [place] [address], [place] [address] 12 Nov, 2011 [facility] [address] [id number] [address] [place] [address], [place] [address] 07 Nov, 2011 [facility] [address] [id number] [address] [place] [address], [place] [address] 29 Oct, 2011 [facility] [address] [id number] [address] [place] [address], [place] [address] 28 Oct, 2011 [facility] [address] [id number] [address] [place] [address], [place] [address] 24 Oct, 2011 [facility] [address] [id number] [address] [place] [address], [place] [address] 13 Oct, 2011 [facility] [address] [id number] [address] [place] [address], [place] [address] 08 Oct, 2011 [facility] [address] [id number] [address] [place] [address], [place] [address] 31 Sep, 2011 [facility] [address] [id number] [address] [place] [address], [place] [address] 30 Sep, 2011 [facility] [address] [id number] [address] [place] [address] Sep, [facility] [address] [id number] [address] [place] [address], [place] [address] Sep, [facility] [address] [id number] [address] [place] [address] Sep, [facility] [address] [id number] [address] [place] [address], [place] [address] Sep, [facility] [address] [id number] [address] [place] [address] Aug, [facility] [address] [id number] [address] [place] [address], [place] [address] Aug, [facility] [address] [id number] [address] [place] [address], [place] [address] Aug, [facility] [address] [id number] [address] [place] [address] Jul, [facility] [address] [id number] [address] [place] [address] Jul, [facility] [address] [id number] [address] [place] [address] Jul, [facility] [address] [id number] [address] [place] [address] Jul, [facility] [address] [id number] [address] [place] [address] Jun, [facility] [address] [id number] [address] [place] [address] 31 Jun, 2011 [facility] [address] [id number] [address] [place] [address], [place] [address] 18 Jun, 2011 [facility] [address] [id number] [address] [place] [address] 10 Jun, 2011 [facility] [address] [id number] [address] [place] [address], [place] [address] Jun, [facility] [address] [id number] [address] [place] [address], [place] [address] 10 Jun, 2011 [facility] [address] [id number] [address] [place] [address], [place] [address] 11 Mar, 2011 [facility] [address] [id number] [address] [place] [address], [place] [address] 18 Dec, 2010 [facility] [address] [id number] [address] [place] [address], [place] [address] 11 Dec, 2010 [facility] [address] [id number] [address] [place] [address], [place] [address] 18 Nov, 2010 [facility] [address] [id number] [address] [place] [address], [place] [address] 16 Nov, 2010 [facility] [address] [id number] [address] [place] [address], [place] [address] 10 Sep, 2010 [facility] [address] [id number] [address] [place] [address], [place] [address] 31 Aug, 2010 [facility] [address] [id number] [address] [place] [address], [place] [address] 29 Aug, 2010 [facility] [address] [id number] [address] [place] [address], [place] [address] 29 Aug, 2010 [facility] [address] [id number] [address] [place] [address], [place] [address] 29 Aug, 2010 [facility] [address] [id number] [address] [place] [address], [place] [address] 27 Aug, 2010 [facility] [address] [id number] [address] [place] [address], [place] [address] 14 Aug, 2010 [facility] [address] [id number] [address] [place] [address], [place] [address] 08 Aug, 2010 [facility] [address] [id number] [address] [place] [address], [place] [address] 08 Aug, 2010 [facility] [address] [id number] [address] [place] [address], [place] [address] Aug, [facility] [address] [id number] [address] [place] [address], [place] [address] Aug, [facility] [address] [id number] [address] [place] [address], [place] [address] Aug, [facility] [address] [id number] [address] [place] [address], [place] [address] Aug, [facility] [address] [id number] [address] [place] [address], [place] [address] Jul, [facility] [address] [id number] [address] [place] [address], [place] [address] Jul, [facility] [address] [id number] [address] [place] [address], [place] [address] Jul, [facility] [address] [id number] [address] [place] [address], [place] [address] Jul, [facility] [address] [id number] [address] [place] [address], [place] [address] Jul, [facility] [address] [id number] [address] [place] [address], [place] [address] Jul, [facility] [address] [id number] [address] [place] [address], [place] [address] Jun, [facility] [address] [id number] [address] [place] [address], [place] [address] Jun, [facility] [address] [id number] [address] [place] [address] Jun, [facility] [address] [id number] [address] [place] [address], [place] [address] Jun, [facility] [address] [id number] [address] [place] [address], [place] [address] 16 Apr, 2010 [facility] [address] [id number] [address] [place] [address], [place] [address] Mar, [facility] [address] [id number] [address] [place] [address] 17 Feb, 2010 [facility] [address] [id number] [address] [place] [address], [place] [address] 11 Jan, 2010 [facility] [address] [id number] [address] [place] [address] 15 Dec, 2009 [facility] [address] [id number] [address] [place] [address] Nov, [facility] [address] [id number] [address] [place] [address] 31 Aug, 2009 [facility] [address] [id number] [address] [place] [address] Aug, [facility] [address] [id number] [address] [place] [address] Aug, [facility] [address] [id number] [address] [place] [address] Jul, [facility] [address] [id number] [address] [place] [address] Jul, [facility] [address] [id number] [address] [place] [address] Jul, [facility] [address] [id number] [address] [place] [address] 30 Jun, 2009 [facility] [address] [id number] [address] [place] [address] 29 Jun, 2009 [facility] [address] [id number] [address] [place] [address] Jun, [facility] [address] [id number] [address] [place] [address] 22 Jun, 2009 [facility] [address] [id number] [address] [place] [address] Jun, [facility] [address] [id number] [address] [place] [address] Jun, [facility] [address] [facility] [id number] [address] [place] [address] Apr, [facility] [address] [facility] [id number] [address] [place] [address] Apr, [facility] [address] [facility] [id number] [address] [place] [address] Feb, [facility] [address] [facility] [id number] [address] [place] [address] January, [facility] [address] [facility] [id number] [address] [place] [address] Dec, IMMUNIZATIONS No Known Immunizations SOCIAL HISTORY [...] History colonoscopy 2009 ([facility]), 2013 ([place] ) Surgical History heart cath: CAD w/ [...] painina 01/2015 Hospitalization History inability to urinate 12/23/15 Hospitalization History [facility] inpatient mental health ea rly 1999's Hospitalization History hyperkalemia 10/2017 Hospitalization History fluid in lung
--- OUTSIDE RECORDS SUMMARY | 2020-03-01 18:22 | XMS REPORT ---
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 Name Role Phone Migration, Doctor Unavailable Unavailable PROBLEMS Type Condition ICD9-CM Code ZQQ93-EF Code Onset Dates Condition S tatus SNOMED Code Problem Cough R05 Active 26467059 Problem Benign prostatic hyperplasia with lower urinary tract symptoms, unspecified morphology N40.1 Active 84468 6007 Problem Eustachian tube dysfunction, unspecified laterality H69.80 Active 72116602 Problem Chronic pain G89.29 Active 7688405 1 Problem DM neuro manif type II E11.49 Active 32260899 Problem Diabetes E11.9 Active 25056253 Problem Leukocytosis D72.829 Active 9662822 06 Problem Falling R29.6 Active 759586052 Problem Pressure ulcer of other site, stage 3 L89.893 Active 926770383 Problem 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 Active 539491819 Problem Eye exam abnormal R93.8 Active 16 0166622 Problem Dysuria R30.0 Active 63788868 Problem Hypokalemia E87.6 Active 01927755 Problem Morbid obesity E66.01 Active 22310 6002 Problem Anxiety F41.9 Active 22963893 Problem Diabetic polyneuropathy associated with type 2 d iabetes mellitus E11.42 Active 56624201 Problem Essential hypertension I10 Active 20946999 Problem Bilateral primary osteoarthritis of knee M17.0 Active 627674274 Problem Polyneuropathy associated with underlying disease G63 Active 860150138 Problem Anemia of chronic illness D63.8 Acti ve 130922531 Problem Lymphocytosis D72.820 Active 067452 09 Problem Retinal edema H35.81 Active 221150 6 Problem Chronic lymphocytic leukemia C91.10 A ctive 95901514 Problem Bipolar disorder, in partial remission, most rec ent episode depressed F31.75 Active 66088283 Problem Pure hypercholesterolemia E78.00 Acti ve 414366368 Problem Primary osteoarthritis of right knee M17.11 Active 940129613751504 Problem Bipolar disorder F31.9 Active 137 13528 Problem Bipolar I disorder, most recent episode (or curr ent) mixed, moderate F31.62 Active 56421618 Problem Chronic diastolic (congestive) heart failure I50.3 2 Active 605272688 Problem Reactive airway disease J45.909 Active 610266716214 Problem Insomnia, unspecified type G47.00 Act sharon 424960491 Problem Other chronic pain G89.29 Active 8 0579392 Problem Other iron deficiency anemia D50.8 A ctive 00329882 Problem Mild cognitive impairment G31.84 Acti ve 380658153 Problem Skin cancer C44.90 Active 99476628 7 ALLERGIES No Information ENCOUNTERS Encounter Location Date Diagnosis [place] [address] [address] [facility] [id number] [address] [place] [id number] Mar, Bipolar disorder F31.9 and C hronic pain G89.29 [place] [address] [address] [facility] [id number] [address] [place] [phone] Feb, Bipolar disorder F31.9 [place] [address] [place] [id number] [address] [place] [address] Feb, Cellulitis of right upper ex tremity L03.113 and Skin abrasion T14.8XXA [place] [address] [address] [facility] [id number] [address] [place] [address] Feb, Bipolar disorder, in partial remission, most recent episode depressed F31.75 and Mild cognitive impairment G31.84 [place] [address] [address] [facility] [id number] [address] [place] [address] Feb, Chronic pain G89.29 [place] [address] [facility] [id number] [address] [place] [address] Feb, Bipolar disorder, in partial remission, most recent episode depressed F31.75 and Mild cognitive impairment G31.84 [place] [address] [facility] [id number] [address] [place] [address] January, Bipolar disorder, in partial remission, most recent episode depressed F31.75 and Mild cognitive impairment G31.84 [place] [address] [address] [facility] [id number] [address] [place] [address] January, Chronic pain G89.29 and Bipo lar disorder F31.9 [facility] [address] [id number] [address] [place] [id number] January, Bipolar disorder, in partial remission, most recent episode depressed F31.75 and Mild cognitive impairment G31.84 [facility] [address] [id number] [address] [place] [address] Dec, [facility] [address] [id number] [address] [place] [id number] Dec, Chronic pain G89.29 and Bipo lar disorder F31.9 [facility] [address] [id number] [address] [place] [address] Dec, Edema of both lower extremit ies R60.0 [facility] [address] [id number] [address] [place] [phone] Dec, Bipolar disorder F31.9 [facility] [address] [id number] [address] [place] [phone] Dec, Bipolar disorder, in partial remission, most recent episode depressed F31.75 and Mild cognitive impairment G31.84 [facility] [address] [id number] [address] [place] [id number] Nov, [facility] [address] [id number] [address] [place] [address] Nov, Chronic pain G89.29 [facility] [address] [id number] [address] [place] [address] Nov, Bipolar disorder, in partial remission, most recent episode depressed F31.75 and Mild cognitive impairment G31.84 [facility] [address] [id number] [address] [place] [phone] Nov, Bipolar disorder F31.9 [facility] [address] [id number] [address] [place] [phone] Nov, Encounter for Medicare annua l wellness exam [...] morphology N40.1 and Essential hypertension I10 [address] [id number] 21 Oct, 2018 Chronic pain G89.[address] [id number] 18 Oct, 2018 Diabetes E11.9 [place] [id number] [place] [address] Oct, Bipolar I disorder, most rec ent episode (or current) mixed, moderate F31.62 and Mild cognitive impairment G31.84 [place] [id number] [address] [place] [address] Oct, Bipolar I disorder, most rec ent episode (or current) mixed, moderate F31.62 and Mild cognitive impairment G31.[address] [address] Sep, Bipolar I disorder, most rec ent episode (or current) mixed, moderate F31.62 and Mild cognitive impairment G31.84 [place] [id number] [place] [address] Sep, [address] [address] Sep, Diabetes E11.9 ; Hypoxia R09 .02 ; Hyperglycemia R73.9 ; Therapeutic drug monitoring Z51.81 ; BMI 50.0-59.9, adult Z68.43 and Skin cancer C44.[address] [address] Sep, Chronic pain G89.29 [facility] [address] [id number] [address] [place] [phone] Sep, Bipolar I disorder, most rec ent episode (or current) mixed, moderate F31.62 [facility] [address] [facility] [id number] [address] [place] [phone] Sep, [facility] [address] [facility] [id number] [address] [place] [phone] Sep, [facility] [address] [facility] [id number] [address] [place] [phone] Aug, Chronic pain G89.29 [facility] [address] [facility] [id number] [address] [place] [phone] Aug, Bipolar I disorder, most rec ent episode (or current) mixed, moderate F31.62 [facility] [address] [facility] [id number] [address] [place] [address] Aug, Bipolar I disorder, most rec ent episode (or current) mixed, moderate F31.62 and Mild cognitive impairment G31.84 [facility] [address] [facility] [id number] [address] [place] [id number] Jul, [facility] [address] [facility] [id number] [address] [place] [id number] Jul, Chronic pain G89.29 [facility] [address] [facility] [id number] [address] [place] [phone] Jul, Bipolar I disorder, most rec ent episode (or current) mixed, moderate F31.62 and Mild cognitive impairment G31.84 [facility] [address] [facility] [id number] [address] [place] [address] Jul, Bipolar I disorder, most rec ent episode (or current) mixed, moderate F31.62 and MCI (mild cognitive impairment) G31.84 [facility] [address] [facility] [id number] [address] [place] [id number] Jul, [facility] [address] [id number] [address] [place] [phone] Jul, [facility] [address] [id number] [address] [place] [phone] Jul, Bipolar I disorder, most rec ent episode (or current) mixed, moderate F31.62 [facility] [address] [id number] [address] [place] [id number] Jul, Chronic pain G89.29 [facility] [address] [id number] [address] [place] [address] Jun, Bipolar I disorder, most rec ent episode (or current) mixed, moderate F31.62 [facility] [address] [id number] [address] [place] [address] Jun, Pre-procedure lab exam Z01.8 12 [facility] [address] [id number] [address] [place] [phone] Jun, [facility] [address] [id number] [place] [address] [id number] Jun, [facility] [address] [facility] [id number] [address] [place] [phone] Jun, [facility] [address] [facility] [id number] [address] [place] [phone] Jun, Forgetfulness R68.89 ; Pre-s yncope R55 ; Localized edema R60.0 ; Other iron deficiency anemia D50.8 and BMI 50.0-59.9, adult Z68.43 [facility] [address] [id number] [address] [place] [address] Jun, Chronic pain G89.29 [facility] [address] [id number] [address] [place] [address] Jun, Chronic pain G89.29 [facility] [address] [facility] [id number] [address] [place] [id number] Jun, Bipolar I disorder, most rec ent episode (or current) mixed, moderate F31.62 [place] [id number] [facility] [id number] [address] [place] [phone] May, Chronic pain G89.29 [facility] [address] [facility] [id number] [address] [place] [address] Apr, [facility] [address] [place] [id number] [address] [place] [address] Apr, Chronic pain G89.29 [facility] [address] [facility] [id number] [address] [place] [address] Apr, Primary osteoarthritis of ri ght knee M17.11 [place] [address] [address] [facility] [id number] [address] [place] [id number] Mar, [place] [address] [place] [id number] [place] [phone] Mar, BMI 50.0-59.9, adult Z68.43 and Bipolar disorder, in partial remission, most recent episode depressed F31.75 [place] [address] [place] [id number] [address] [place] [address] Mar, Diabetes E11.9 ; Pure hyperc holesterolemia E78.00 ; Essential hypertension I10 ; Nausea with vomiting, unspecified R11.2 and Headache, unspecified headache type R51 [place] [address] [place] [id number] [address] [place] [phone] Mar, Bipolar I disorder, most rec ent episode (or current) mixed, moderate F31.62 [place] [address] [place] [id number] [address] [place] [phone] Mar, Bipolar I disorder, most rec ent episode (or current) mixed, moderate F31.62 [place] [address] [facility] [id number] [address] [place] [address] Mar, Chronic pain G89.29 [facility] [address] [place] [id number] [address] [place] [phone] Mar, Bipolar I disorder, most rec ent episode (or current) mixed, moderate F31.62 [facility] [address] [facility] [id number] [address] [place] [phone] Feb, Bipolar I disorder, most rec ent episode (or current) mixed, moderate F31.62 [facility] [address] [facility] [id number] [address] [place] [id number] Feb, Chronic pain G89.29 [facility] [address] [facility] [id number] [address] [place] [id number] Feb, Decubitus ulcer of right josselin t, stage 3 L89.893 and BMI 50.0-59.9, adult Z68.43 [facility] [address] [facility] [id number] [address] [place] [phone] Feb, Bipolar I disorder, most rec ent episode (or current) mixed, moderate F31.62 [facility] [address] [facility] [id number] [address] [place] [id number] Feb, [facility] [address] [id number] [address] [place] [phone] January, [facility] [address] [facility] [id number] [address] [place] [phone] January, Chronic pain G89.29 [facility] [address] [facility] [id number] [address] [place] [address] January, Bipolar I disorder, most rec ent episode (or current) mixed, moderate F31.62 [facility] [address] [id number] [address] [place] [phone] January, Bipolar I disorder, most rec ent episode (or current) mixed, moderate F31.62 [facility] [address] [facility] [id number] [address] [place] [phone] Dec, Bipolar I disorder, most rec ent episode (or current) mixed, moderate F31.62 and BMI 50.0-59.9, adult Z68.43 [facility] [address] [facility] [id number] [address] [place] [phone] Dec, Bipolar I disorder, most rec ent episode (or current) mixed, moderate F31.62 [facility] [address] [facility] [id number] [address] [place] [id number] Dec, Chronic pain G89.29 [facility] [address] [place] [id number] [address] [place] [address] Dec, DM neuro manif type II E11.4 9 ; Right flank pain R10.9 ; 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 ; Encounter for medication monitoring Z51.81 and BMI 50.0-59.9, adult Z68.43 [facility] [address] [facility] [id number] [address] [place] [id number] Dec, Bipolar I disorder, most rec ent episode (or current) mixed, moderate F31.62 [place] [address] [place] [id number] [address] [place] [id number] Nov, Bipolar I disorder, most rec ent episode (or current) mixed, moderate F31.62 [place] [address] [place] [id number] [address] [place] [address] Nov, Chronic pain G89.29 [facility] [address] [place] [id number] [address] [place] [phone] Nov, Bipolar I disorder, most rec ent episode (or current) mixed, moderate F31.62 [facility] [address] [facility] [id number] [address] [place] [phone] Nov, Hypokalemia E87.6 [place] [address] [place] [id number] [address] [place] [phone] Nov, Bipolar I disorder, most rec ent episode (or current) mixed, moderate F31.62 [facility] [address] [facility] [id number] [address] [place] [phone] Oct, Chronic pain G89.29 [facility] [address] [facility] [id number] [address] [place] [phone] Oct, BMI 50.0-59.9, adult Z68.43 and Bipolar I disorder, most recent episode (or current) mixed, moderate F31.62 [facility] [address] [place] [id number] [address] [place] [phone] Oct, Bipolar I disorder, most rec ent episode (or current) mixed, moderate F31.62 [facility] [address] [place] [id number] [address] [place] [address] Oct, [place] [address] [place] [id number] [place] [phone] Oct, Hypokalemia E87.6 [place] [address] [place] [id number] [place] [address] Oct, DM neuro manif type II E11.4 9 [place] [address] [place] [id number] [address] [place] [phone] Oct, Bipolar I disorder, most rec ent episode (or current) mixed, moderate F31.62 [place] [address] [place] [id number] [address] [place] [id number] Oct, Bipolar I disorder, most rec ent episode (or current) mixed, moderate F31.62 [place] [address] [place] [id number] [address] [place] [id number] 14 Oct, 2017 Hyperkalemia E87.5 ; Falling R29.6 ; BMI 50.0-59.9, adult Z68.43 and Acute left ankle pain M25.572 [place] [address] [place] [id number] [place] [address] Oct, DM neuro manif type II E11.4 9 [place] [address] [place] [id number] [address] [place] [phone] Oct, [place] [address] [place] [id number] [place] [address] Sep, Chronic pain G89.29 [facility] [address] [place] [id number] [address] [place] [phone] Sep, [facility] [address] [place] [id number] [address] [place] [id number] Sep, Bilateral primary osteoarthr itis of knee M17.0 [place] [address] [place] [id number] [place] [address] Sep, Generalized edema R60.1 [place] [address] [place] [id number] [place] [phone] Sep, Bipolar I disorder, most rec ent episode (or current) mixed, moderate F31.62 [place] [address] [place] [id number] [place] [address] Sep, Hypoxia R09.02 ; Other hyper volemia E87.79 ; Diabetes E11.9 ; Retinal edema H35.81 ; Hypokalemia E87.6 ; 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 ; Anemia of chronic illness D63.8 and BMI 50.0- 59.9, adult Z68.43 [place] [address] [place] [id number] [address] [place] [phone] Sep, [place] [address] [place] [id number] [address] [place] [phone] Sep, Bipolar I disorder, most rec ent episode (or current) mixed, moderate F31.62 [place] [address] [place] [id number] [address] [place] [address] Aug, Chronic pain G89.29 [place] [address] [place] [id number] [address] [place] [id number] Aug, Generalized edema R60.1 [place] [address] [place] [id number] [address] [place] [phone] Aug, [place] [address] [address] Aug, [facility] [address] [facility] [id number] [address] [place] [phone] Aug, Bipolar I disorder, most rec ent episode (or current) mixed, moderate F31.62 [facility] [address] [place] [id number] [address] [place] [address] Aug, Bipolar I disorder, most rec ent episode (or current) mixed, moderate F31.62 [place] [address] [place] [id number] [address] [place] [address] Aug, Chronic pain G89.29 [place] [address] [place] [id number] [address] [place] [id number] Jul, Bipolar I disorder, most rec ent episode (or current) mixed, moderate F31.62 [place] [address] [place] [id number] [address] [place] [address] Jul, Bipolar I disorder, most rec ent episode (or current) mixed, moderate F31.62 and BMI 60.0-69.9, adult Z68.44 [place] [address] [place] [id number] [address] [place] [id number] Jul, Bipolar I disorder, most rec ent episode (or current) mixed, moderate F31.62 [place] [address] [place] [id number] [address] [place] [address] Jul, Chronic pain G89.29 [place] [address] [place] [id number] [address] [place] [id number] Jul, Bipolar I disorder, most rec ent episode (or current) mixed, moderate F31.62 [place] [address] [place] [id number] [address] [place] [phone] Jun, Polyneuropathy associated wi th underlying disease G63 and Diabetes E11.9 [place] [address] [place] [id number] [address] [place] [address] Jun, Bipolar I disorder, most rec ent episode (or current) mixed, moderate F31.62 [facility] [address] [id number] [address] [place] [id number] Jun, Chronic pain G89.29 [facility] [address] [id number] [address] [place] [phone] May, Bipolar I disorder, most rec ent episode (or current) mixed, moderate F31.62 [facility] [address] [id number] [address] [place] [id number] May, Bipolar I disorder, most rec ent episode (or current) mixed, moderate F31.62 [facility] [address] [id number] [address] [place] [address] May, Diabetic polyneuropathy asso ciated with type 2 diabetes mellitus E11.42 [facility] [address] [id number] [address] [place] [phone] May, Bipolar I disorder, most rec ent episode (or current) mixed, moderate F31.62 [facility] [address] [id number] [address] [place] [address] May, Bipolar I disorder, most rec ent episode (or current) mixed, moderate F31.62 [facility] [address] [id number] [address] [place] [phone] May, Chronic pain G89.29 [facility] [address] [id number] [address] [place] [phone] Apr, Bipolar I disorder, most rec ent episode (or current) mixed, moderate F31.62 [facility] [address] [id number] [address] [place] [id number] Apr, [facility] [address] [facility] [id number] [address] [place], [place] [phone] Apr, Chronic pain G89.29 and DM n euro manif type II E11.49 [facility] [address] [id number] [address] [place] [id number] Apr, [facility] [address] [id number] [address] [place] [phone] Apr, Bipolar I disorder, most rec ent episode (or current) mixed, moderate F31.62 [facility] [address] [id number] [address] [place] [phone] Apr, Chronic pain G89.29 [facility] [address] [id number] [address] [place] [phone] Apr, Iliotibial band syndrome, le ft M76.32 [facility] [address] [id number] [address] [place] [phone] Apr, Bipolar I disorder, most rec ent episode (or current) mixed, moderate F31.62 [facility] [address] [id number] [address] [place] [phone] Mar, Bipolar I disorder, most rec ent episode (or current) mixed, moderate F31.62 [facility] [address] [id number] [address] [place] [phone] Mar, Bipolar I disorder, most rec ent episode (or current) mixed, moderate F31.62 [facility] [address] [id number] [address] [place] [phone] Mar, [facility] [address] [id number] [address] [place] [phone] Mar, Bipolar I disorder, most rec ent episode (or current) mixed, moderate F31.62 [facility] [address] [id number] [address] [place] [address] Mar, Chronic pain G89.29 [facility] [address] [id number] [address] [place] [phone] Mar, Bipolar I disorder, most rec ent episode (or current) mixed, moderate F31.62 [facility] [address] [id number] [address] [place] [phone] Mar, Bipolar I disorder, most rec ent episode (or current) mixed, moderate F31.62 [facility] [address] [facility] [id number] [address] [place] [phone] Mar, Acute pain of left knee M25. 562 ; Left hip pain M25.552 ; Generalized edema R60.1 and Tongue swelling R22.0 [facility] [address] [facility] [id number] [address] [place] [phone] Mar, [facility] [address] [facility] [id number] [address] [place] [phone] Feb, Chronic pain G89.29 [place] [address] [facility] [id number] [address] [place] [phone] Feb, Diabetes E11.9 [place] [address] [facility] [id number] [address] [place] [phone] January, Chronic pain G89.29 [place] [address] [place] [id number] [address] [place] [address] January, [facility] [address] [facility] [id number] [address] [place] [phone] January, Bipolar I disorder, most rec ent episode (or current) mixed, moderate F31.62 [facility] [address] [facility] [id number] [address] [place] [id number] Dec, Bipolar I disorder, most rec ent episode (or current) mixed, moderate F31.62 [place] [address] [facility] [id number] [address] [place] [address] Dec, Chronic pain G89.29 [place] [address] [facility] [id number] [address] [place] [phone] Dec, Bipolar I disorder, most rec ent episode (or current) mixed, moderate F31.62 [place] [address] [facility] [id number] [address] [place] [id number] Dec, Diabetes E11.9 ; Essential h ypertension I10 ; Chronic pain G89.29 and Morbid obesity E66.01 [facility] [address] [id number] [address] [place] [phone] Dec, [facility] [address] [id number] [address] [place] [phone] Dec, Bipolar I disorder, most rec ent episode (or current) mixed, moderate F31.62 [facility] [address] [id number] [address] [place] [phone] Dec, Bipolar I disorder, most rec ent episode (or current) mixed, moderate F31.62 [facility] [address] [id number] [address] [place] [phone] Nov, Chronic pain G89.29 [facility] [address] [facility] [id number] [address] [place] [phone] Nov, Bipolar I disorder, most rec ent episode (or current) mixed, moderate F31.62 [facility] [address] [facility] [id number] [address] [place] [phone] Nov, [facility] [address] [id number] [address] [place] [phone] Nov, Bipolar I disorder, most rec ent episode (or current) mixed, moderate F31.62 [facility] [address] [facility] [id number] [address] [place] [phone] Nov, Bipolar I disorder, most rec ent episode (or current) mixed, moderate F31.62 [facility] [address] [facility] [id number] [address] [place] [phone] Nov, [facility] [address] [facility] [id number] [address] [place] [phone] Nov, [facility] [address] [facility] [id number] [address] [place] [phone] Nov, [facility] [address] [facility] [id number] [address] [place] [id number] Oct, Chronic pain G89.29 [facility] [address] [id number] [address] [place] [phone] 27 Oct, 2016 Bipolar I disorder, most rec ent episode (or current) mixed, moderate F31.62 [facility] [address] [id number] [address] [place] [phone] 23 Oct, 2016 [facility] [address] [id number] [address] [place] [phone] Oct, Chronic pain G89.29 ; Diabet es E11.9 ; Anxiety F41.9 and 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 [facility] [address] [id number] [address] [place] [phone] Oct, [facility] [address] [id number] [address] [place] [id number] 06 Oct, 2016 Diabetes E11.9 [facility] [address] [id number] [address] [place] [phone] Oct, Bipolar I disorder, most rec ent episode (or current) mixed, moderate F31.62 [facility] [address] [id number] [address] [place] [address] Sep, Chronic pain G89.29 [facility] [address] [id number] [address] [place] [address] Sep, Chronic pain G89.29 [facility] [address] [id number] [address] [place] [id number] Aug, Chronic pain G89.29 [facility] [address] [id number] [address] [place] [phone] Jul, [facility] [address] [id number] [address] [place] [phone] Jul, Diabetes E11.9 [facility] [address] [id number] [address] [place] [address] Jul, Chronic pain G89.29 [facility] [address] [place] [id number] [address] [place] [phone] Jul, Bipolar I disorder, most rec ent episode (or current) mixed, moderate F31.62 [facility] [address] [place] [id number] [address] [place] [phone] Jun, Bipolar I disorder, most rec ent episode (or current) mixed, moderate F31.62 [facility] [address] [place] [id number] [address] [place] [phone] Jun, [facility] [address] [place] [id number] [place] [phone] Jun, Bipolar I disorder, most rec ent episode (or current) mixed, moderate F31.62 [place] [address] [place] [id number] [address] [place] [id number] May, Insomnia, unspecified type G 47.00 [place] [address] [place] [id number] [place] [phone] May, Bipolar I disorder, most rec ent episode (or current) mixed, moderate F31.62 [place] [address] [place] [id number] [address] [place] [phone] May, [place] [address] [place] [id number] [place] [phone] May, Bipolar I disorder, most rec ent episode (or current) mixed, moderate F31.62 [facility] [address] [place] [id number] [address] [place] [phone] May, Diabetes E11.9 and Essential hypertension I10 [facility] [address] [place] [id number] [address] [place] [phone] Apr, Chronic pain G89.29 [facility] [address] [place] [id number] [address] [place] [id number] Apr, Bipolar I disorder, most rec ent episode (or current) mixed, moderate F31.62 [facility] [address] [place] [id number] [address] [place] [phone] Apr, [facility] [address] [facility] [id number] [address] [place] [phone] Apr, [place] [address] [facility] [id number] [address] [place] [phone] Mar, Chronic pain G89.29 ; Headac he, unspecified headache type R51 ; Neuropathy G62.9 ; Pain of right hip joint M25.551 and Essential hypertension I10 [place] [address] [place] [id number] [address] [place] [address] Mar, Chronic pain G89.29 [place] [address] [place] [id number] [address] [place] [phone] Mar, Bipolar I disorder, most rec ent episode (or current) mixed, moderate F31.62 [place] [address] [place] [id number] [address] [place] [phone] Feb, Bipolar I disorder, most rec ent episode (or current) mixed, moderate F31.62 and Insomnia, unspecified type G47.00 [place] [address] [facility] [id number] [address] [place] [phone] Feb, Chronic pain G89.29 [place] [address] [place] [id number] [address] [place] [phone] Feb, Bipolar I disorder, most rec ent episode (or current) mixed, moderate F31.62 [place] [address] [facility] [id number] [address] [place] [phone] January, Bipolar I disorder, most rec ent episode (or current) mixed, moderate F31.62 [place] [address] [facility] [id number] [address] [place] [phone] January, Chronic pain G89.29 [place] [address] [facility] [id number] [address] [place] [phone] January, Chronic pain G89.29 and Esse ntial hypertension I10 [place] [address] [id number] January, Bipolar I disorder, most rec ent episode (or current) mixed, moderate F31.62 [facility] [address] [place] [id number] [address] [place] [phone] Dec, [facility] [address] [place] [id number] [address] [place] [phone] Dec, [facility] [address] [place] [id number] [place] [phone] Dec, [facility] [address] [place] [id number] [place] [phone] Dec, [facility] [address] [place] [id number] [place] [phone] Nov, Reactive airway disease J45. 909 [facility] [address] [address] Nov, [facility] [address] [phone] Nov, [facility] [address] [address] Nov, [facility] [address] [address] Nov, [facility] [address] [address] Nov, Onychomycosis B35.1 ; Hammer toe M20.40 ; [place] or callus L84 and DM neuro manif type II E11.49 [facility] [address] [place] [id number] [address] [place] [address] Nov, Chronic pain G89.29 ; Leukoc ytosis D72.829 and Diabetes E11.9 [facility] [address] [place] [id number] [address] [place] [phone] Nov, [facility] [address] [id number] Oct, Bronchitis J40 [facility] [address] [address] Oct, [facility] [address] [id number] Oct, [facility] [address] [address] Oct, Mastoiditis, unspecified lat erality H70.90 and Type 2 diabetes mellitus with complication E11.8 [facility] [address] [address] Sep, [place] [address] [address] Sep, Dysuria R30.0 ; Cough R05 ; Benign prostatic hyperplasia with lower urinary tract symptoms, unspecified morphology N40.1 ; Hypokalemia E87.6 and Eustachian tube dysfunction, unspecified laterality H69.80 [place] [address] [address] Sep, Moderate mixed bipolar I dis order F31.62 [place] [address] [address] Sep, Hypokalemia E87.6 [place] [address] [address] Sep, [facility] [address] [address] Sep, Upper respiratory tract infe ction, unspecified type J06.9 [place] [address] [address] Aug, [place] [address] [address] Aug, Dysuria R30.0 [place] [address] [place] [address] Aug, [facility] [address] [id number] [address] [place] [phone] Jul, [facility] [address] [id number] [address] [place] [phone] Jul, [facility] [address] [id number] [address] [place] [phone] Jul, [facility] [address] [id number] [address] [place] [phone] Jul, [facility] [address] [id number] [address] [place] [phone] Jun, [facility] [address] [id number] [address] [place] [phone] Jun, [facility] [address] [facility] [id number] [address] [place] [phone] Jun, [facility] [address] [id number] [address] [place] [phone] May, [facility] [address] [facility] [id number] [address] [place] [phone] May, Bipolar I disorder, most rec ent episode (or current) mixed, moderate 296.62 [facility] [address] [facility] [id number] [address] [place] [phone] 16 May, 2015 [facility] [address] [facility] [id number] [address] [place] [address] May, Bipolar I disorder, most rec ent episode (or current) mixed, moderate 296.62 and Major depressive disorder, recurrent episode, severe, specified as with psychotic behavior 296.34 [facility] [address] [facility] [id number] [address] [place] [phone] May, Bipolar I disorder, most rec ent episode (or current) mixed, moderate 296.62 [facility] [address] [facility] [id number] [address] [place] [phone] May, [facility] [address] [id number] [address] [place] [phone] Apr, [facility] [address] [id number] [address] [place] [phone] Apr, [facility] [address] [facility] [id number] [address] [place] [phone] Apr, Unspecified disorder of kidn ey and ureter 593.9 and Diabetes mellitus type 2, uncontrolled 250.02 [facility] [address] [id number] [address] [place] [phone] Apr, [facility] [address] [id number] [address] [place] [phone] Apr, [facility] [address] [facility] [id number] [address] [place] [phone] Apr, [facility] [address] [facility] [id number] [address] [place] [phone] Apr, [facility] [address] [facility] [id number] [address] [place] [phone] Apr, Diabetes mellitus type II, u ncontrolled 250.02 [facility] [address] [facility] [id number] [address] [place] [id number] Apr, [facility] [address] [facility] [id number] [address] [place] [phone] Mar, [facility] [address] [facility] [id number] [address] [place] [phone] Mar, [facility] [address] [facility] [id number] [address] [place] [phone] Mar, [facility] [address] [facility] [id number] [address] [place] [id number] Mar, Major depressive disorder, r ecurrent episode, severe, specified as with psychotic behavior 296.34 and Bipolar I disorder, most recent episode (or current) mixed, moderate 296.62 [facility] [address] [address] Mar, Diabetes 250.00 ; Anuria 788 .5 ; Nausea and vomiting 787.01 and Diarrhea 787.91 [facility] [address] [place] [id number] [address] [place] [address] Mar, Diabetes 250.00 [facility] [address] [id number] Mar, [facility] [address] [address] Mar, Diabetes 250.00 [facility] [address] [address] Mar, [facility] [address] [address] Mar, [facility] [address] [address] Mar, [facility] [address] [address] Mar, [facility] [address] [address] Mar, Bipolar I disorder, most rec ent episode (or current) mixed, moderate 296.62 and Major depressive disorder, recurrent episode, severe, specified as with psychotic behavior 296.34 [facility] [address] [address] Mar, Magnesium deficiency 275.2 ; Hypokalemia 276.8 ; Nausea & vomiting 787.01 and Diabetes mellitus type 2, uncontrolled 250.02 [facility] [address] [address] Feb, [facility] [address] [address] Feb, Bipolar I disorder, most rec ent episode (or current) mixed, moderate 296.62 [place] [address] [facility] [id number] [address] [place] [phone] Feb, Nausea and vomiting 787.01 ; Left elbow pain 719.42 ; Anuria 788.5 and Diabetes 250.00 [place] [address] [place] [id number] [address] [place] [address] Feb, [place] [address] [place] [id number] [place] [address] Feb, Hypopotassemia 276.8 and Hyp okalemia 276.8 [place] [address] [place] [id number] [place] [address] Feb, Hypopotassemia 276.8 and Hyp okalemia 276.8 [place] [address] [place] [id number] [place] [address] Feb, Seborrheic keratoses 702.19 [place] [address] [place] [id number] [place] [address] Feb, Hypopotassemia 276.8 and Low magnesium levels 275.2 [place] [address] [address] January, [place] [address] [place] [id number] [place] [id number] January, [place] [address] [address] January, [place] [address] [place] [id number] [address] [place] [phone] January, Scalp lesion 709.9 [place] [address] [place] [id number] [place] [phone] January, [place] [address] [place] [id number] [address] [place] [phone] Dec, Tear of medial cartilage or meniscus of knee, current 836.0 and Chondromalacia 733.92 [place] [address] [place] [id number] [address] [place] [address], [place] [address] 29 Dec, 2014 [facility] [address] [id number] [address] [place] [address], [place] [address] 29 Dec, 2014 [facility] [address] [id number] [address] [place] [address], [place] [address] 28 Dec, 2014 Squamous cell carcinoma, 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 [facility] [address] [id number] [address] [place] [address], [place] [address] 14 Dec, 2014 [facility] [address] [id number] [address] [place] [address], [place] [address] 13 Dec, 2014 [facility] [address] [id number] [address] [place] [address], [place] [address] Nov, [facility] [address] [id number] [address] [place] [address], [place] [address] Nov, [facility] [address] [id number] [address] [place] [address], [place] [address] Nov, [facility] [address] [id number] [address] [place] [address], [place] [address] Nov, [facility] [address] [id number] [address] [place] [address], [place] [address] Nov, [facility] [address] [id number] [address] [place] [address], [place] [address] Nov, [facility] [address] [id number] [address] [place] [address], [place] [address] Nov, [facility] [address] [id number] [address] [place] [address], [place] [address] Nov, [facility] [address] [id number] [address] [place] [address], [place] [address] Nov, [facility] [address] [id number] [address] [place] [address], [place] [address] Nov, [facility] [address] [id number] [address] [place] [address], [place] [address] Nov, [facility] [address] [id number] [address] [place] [address], [place] [address] Nov, [facility] [address] [id number] [address] [place] [address], [place] [address] Oct, 2014 [facility] [address] [id number] [address] [place] [address], [place] [address] Oct, 2014 [facility] [address] [id number] [address] [place] [address], [place] [address] Oct, 2014 [facility] [address] [id number] [address] [place] [address], [place] [address] Oct, 2014 [facility] [address] [id number] [address] [place] [address], [place] [address] Oct, 2014 [facility] [address] [id number] [address] [place] [address], [place] [address] Oct, 2014 [facility] [address] [id number] [address] [place] [address], [place] [address] Oct, 2014 [facility] [address] [id number] [address] [place] [address], [place] [address] Oct, 2014 [facility] [address] [id number] [address] [place] [address], [place] [address] Oct, [facility] [address] [id number] [address] [place] [address], [place] [address] Sep, [facility] [address] [id number] [address] [place] [id number] Sep, [facility] [address] [id number] [address] [place] [id number] Sep, [facility] [address] [id number] [address] [place] [id number] Sep, [facility] [address] [id number] [address] [place] [id number] Sep, [facility] [address] [id number] [address] [place] [address], [place] [address] Sep, [facility] [address] [id number] [address] [place] [address], [place] [address] Sep, [facility] [address] [id number] [address] [place] [address], [place] [address] Sep, [facility] [address] [id number] [address] [place] [address], [place] [address] Sep, [facility] [address] [id number] [address] [place] [address], [place] [address] Sep, [facility] [address] [id number] [address] [place] [address], [place] [address] Sep, [facility] [address] [id number] [address] [place] [address], [place] [address] Sep, [facility] [address] [id number] [address] [place] [address], [place] [address] Sep, [facility] [address] [id number] [address] [place] [address], [place] [address] Sep, [facility] [facility] [address] [id number] [address] [place] [address], [place] [address] Sep, [facility] [address] [id number] [address] [place] [address], [place] [address] Sep, [facility] [address] [id number] [address] [place] [address], [place] [address] Aug, [facility] [address] [id number] [address] [place] [address], [place] [address] Aug, [facility] [address] [id number] [address] [place] [address], [place] [address] Aug, [facility] [address] [id number] [address] [place] [address], [place] [address] Aug, [facility] [address] [id number] [address] [place] [address], [place] [address] Aug, [facility] [address] [id number] [facility] [place] [address] Aug, [facility] [address] [id number] [address] [place] [address], [place] [address] Aug, [facility] [address] [id number] [address] [place] [address], [place] [address] Aug, [facility] [address] [id number] [address] [place] [address], [place] [address] Aug, [facility] [address] [id number] [address] [place] [address], [place] [address] Aug, [facility] [address] [id number] [address] [place] [address], [place] [address] Aug, [facility] [place] [id number] Aug, [facility] [address] [id number] [address] [place] [address], [place] [address] Aug, [facility] [address] [id number] [address] [place] [address], [place] [address] Aug, [facility] [address] [id number] [address] [place] [address], [place] [address] Aug, [facility] [address] [id number] [address] [place] [address], [place] [address] Aug, [facility] [address] [id number] [address] [place] [address], [place] [address] Aug, [facility] [address] [id number] [address] [place] [address], [place] [address] Aug, [facility] [address] [id number] [address] [place] [address], [place] [address] Aug, [facility] [address] [id number] [address] [place] [address], [place] [address] Aug, [facility] [address] [id number] [address] [place] [address], [place] [address] 08 Aug, 2014 [facility] [address] [id number] [address] [place] [address], [place] [address] 08 Aug, 2014 [facility] [address] [id number] [address] [place] [address], [place] [address] Aug, [facility] [address] [id number] [address] [place] [address], [place] [address] Aug, [facility] [address] [id number] [address] [place] [address], [place] [address] Aug, [facility] [address] [id number] [address] [place] [address], [place] [address] Aug, [facility] [address] [id number] [address] [place] [address], [place] [address] Aug, [facility] [address] [id number] [address] [place] [address], [place] [address] Aug, [facility] [address] [id number] [address] [place] [address], [place] [address] Aug, [facility] [address] [id number] [address] [place] [address], [place] [address] Aug, [facility] [address] [id number] [address] [place] [address], [place] [address] Jul, [facility] [address] [id number] [address] [place] [address], [place] [address] Jul, [facility] [address] [id number] [address] [place] [address], [place] [address] Jul, [facility] [address] [id number] [address] [place] [address], [place] [address] Jul, [facility] [address] [id number] [address] [place] [address], [place] [address] Jul, [facility] [address] [id number] [address] [place] [address], [place] [address] Jul, [facility] [address] [id number] [address] [place] [address], [place] [address] Jul, [facility] [address] [id number] [address] [place] [address], [place] [address] Jul, [facility] [address] [id number] [address] [place] [address], [place] [address] Jul, [facility] [address] [id number] [address] [place] [address], [place] [address] Jul, [facility] [address] [id number] [address] [place] [address], [place] [address] Jun, [facility] [address] [id number] [address] [place] [address], [place] [address] Jun, [facility] [address] [id number] [address] [place] [address], [place] [address] Jun, [facility] [address] [id number] [address] [place] [address], [place] [address] Jun, [facility] [address] [id number] [address] [place] [address], [place] [address] Jun, [facility] [address] [id number] [address] [place] [address], [place] [address] Jun, [facility] [address] [id number] [address] [place] [address], [place] [address] Jun, [facility] [address] [id number] [address] [place] [address], [place] [address] Jun, [facility] [address] [id number] [address] [place] [address], [place] [address] Jun, [facility] [address] [id number] [address] [place] [address], [place] [address] Jun, [facility] [address] [id number] [address] [place] [address], [place] [address] May, [facility] [address] [id number] [address] [place] [address], [place] [address] 29 Sep, 2013 [facility] [address] [id number] [address] [place] [address], [place] [address] 26 Sep, 2013 [facility] [address] [id number] [address] [place] [address], [place] [address] 26 Sep, 2013 [facility] [address] [id number] [address] [place] [address], [place] [address] 17 Sep, 2013 [facility] [address] [id number] [address] [place] [address], [place] [address] 17 Sep, 2013 [facility] [address] [id number] [address] [place] [address], [place] [address] 15 May, 2013 [facility] [address] [id number] [address] [place] [address], [place] [address] 15 May, 2013 [facility] [address] [id number] [address] [place] [address], [place] [address] 15 May, 2013 [facility] [address] [id number] [address] [place] [address], [place] [address] 15 May, 2013 [facility] [address] [id number] [address] [place] [address], [place] [address] 10 May, 2013 [facility] [address] [id number] [address] [place] [address], [place] [address] 10 May, 2013 [facility] [address] [id number] [address] [place] [address], [place] [address] 09 May, 2013 [facility] [address] [id number] [address] [place] [address], [place] [address] 09 May, 2013 [facility] [address] [id number] [address] [place] [address], [place] [address] 04 May, 2013 [facility] [address] [id number] [address] [place] [address], [place] [address] 04 May, 2013 [facility] [address] [id number] [address] [place] [address], [place] [address] 30 Apr, 2014 [facility] [address] [id number] [facility] [place] [address] Apr, [facility] [address] [id number] [facility] [place] [address] Apr, [facility] [address] [id number] [facility] [place] [address] Apr, [facility] [address] [id number] [address] [place] [address], [place] [address] Apr, [facility] [address] [id number] [address] [place] [address], [place] [address] Apr, [facility] [address] [id number] [address] [place] [address], [place] [address] Apr, [facility] [address] [id number] [address] [place] [address], [place] [address] Apr, [facility] [address] [id number] [address] [place] [address], [place] [address] Apr, [facility] [address] [id number] [address] [place] [address], [place] [address] Apr, [facility] [address] [id number] [address] [place] [address], [place] [address] Apr, [facility] [address] [id number] [address] [place] [address], [place] [address] Apr, [facility] [address] [id number] [address] [place] [address], [place] [address] Apr, [facility] [address] [id number] [address] [place] [address], [place] [address] Apr, [facility] [address] [id number] [address] [place] [address], [place] [address] Apr, [facility] [address] [id number] [address] [place] [address], [place] [address] Mar, [facility] [address] [id number] [address] [place] [address], [place] [address] Mar, [facility] [address] [id number] [address] [place] [address], [place] [address] Mar, 2013 [facility] [address] [id number] [address] [place] [address], [place] [address] Mar, 2013 [facility] [address] [id number] [address] [place] [address], [place] [address] Mar, 2013 [facility] [address] [id number] [address] [place] [address], [place] [address] Mar, 2013 [facility] [address] [id number] [address] [place] [address], [place] [address] Mar, 2013 [facility] [address] [id number] [address] [place] [address], [place] [address] Mar, 2013 [facility] [address] [id number] [address] [place] [address], [place] [address] Mar, 2013 [facility] [address] [id number] [address] [place] [address], [place] [address] Mar, 2013 [facility] [address] [id number] [address] [place] [address], [place] [address] Mar, 2013 [facility] [address] [id number] [address] [place] [address], [place] [address] Mar, 2013 [facility] [address] [id number] [address] [place] [address], [place] [address] Mar, 2013 [facility] [address] [id number] [address] [place] [address], [place] [address] Mar, 2013 [facility] [address] [id number] [address] [place] [address], [place] [address] Mar, 2013 [facility] [address] [id number] [address] [place] [address], [place] [address] Mar, 2013 [facility] [address] [id number] [address] [place] [address], [place] [address] Mar, 2013 [facility] [address] [id number] [address] [place] [address], [place] [address] Mar, [facility] [address] [id number] [facility] [place] [address] Feb, [facility] [address] [id number] [address] [place] [address], [place] [address] Feb, [facility] [address] [id number] [address] [place] [address], [place] [address] Feb, [facility] [address] [id number] [address] [place] [address], [place] [address] Feb, [facility] [address] [id number] [address] [place] [address], [place] [address] Feb, [facility] [address] [id number] [address] [place] [address], [place] [address] Feb, [facility] [address] [id number] [address] [place] [address], [place] [address] Feb, [facility] [address] [id number] [address] [place] [address], [place] [address] Feb, [facility] [address] [id number] [address] [place] [address], [place] [address] Feb, [facility] [address] [id number] [address] [place] [address], [place] [address] Feb, [facility] [address] [id number] [address] [place] [address], [place] [address] Feb, [facility] [address] [id number] [address] [place] [address], [place] [address] Feb, [facility] [address] [id number] [address] [place] [address], [place] [address] Feb, [facility] [address] [id number] [address] [place] [address], [place] [address] Feb, [facility] [address] [id number] [address] [place] [address], [place] [address] January, [facility] [address] [id number] [facility] [place] [address] January, [facility] [address] [id number] [facility] [place] [address] January[facility] [address] [id number] [facility] [place] [address] January, [facility] [address] [id number] [address] [place] [address], [place] [address] January, [facility] [address] [id number] [facility] [place] [address] January, [facility] [address] [id number] [address] [place] [address], [place] [address] January, [facility] [address] [id number] [address] [place] [address], [place] [address] January, [facility] [address] [id number] [address] [place] [address], [place] [address] January, [facility] [address] [id number] [address] [place] [address], [place] [address] January, [facility] [address] [id number] [address] [place] [address], [place] [address] January, [facility] [address] [id number] [address] [place] [address], [place] [address] January, [facility] [address] [id number] [address] [place] [address], [place] [address] January, [facility] [address] [id number] [address] [place] [address], [place] [address] January, [facility] [address] [id number] [address] [place] [address], [place] [address] Dec, [facility] [address] [id number] [address] [place] [address], [place] [address] Dec, [facility] [address] [id number] [address] [place] [address], [place] [address] Dec, [facility] [address] [id number] [facility] [place] [address] Dec, [facility] [address] [id number] [facility] [place] [address] Dec, [facility] [address] [id number] [facility] [place] [address] Dec, [facility] [address] [id number] [address] [place] [address], [place] [address] Dec, [facility] [address] [id number] [facility] [place] [address] Dec, [facility] [address] [id number] [address] [place] [address], [place] [address] Dec, [facility] [address] [id number] [address] [place] [address], [place] [address] Dec, [facility] [address] [id number] [address] [place] [address], [place] [address] Nov, [facility] [address] [id number] [address] [place] [address], [place] [address] Nov, [facility] [address] [id number] [address] [place] [address], [place] [address] Nov, [facility] [address] [id number] [address] [place] [address], [place] [address] Nov, [facility] [address] [id number] [address] [place] [address], [place] [address] Nov, [facility] [address] [id number] [address] [place] [address], [place] [address] Nov, [facility] [address] [id number] [address] [place] [address], [place] [address] Nov, [facility] [address] [id number] [address] [place] [address], [place] [address] Nov, [facility] [address] [id number] [address] [place] [address], [place] [address] Nov, [facility] [address] [id number] [address] [place] [address], [place] [address] Nov, [facility] [address] [id number] [address] [place] [address], [place] [address] Oct, [facility] [address] [id number] [address] [place] [address], [place] [address] Oct, [facility] [address] [id number] [address] [place] [address], [place] [address] Oct, [facility] [address] [id number] [address] [place] [address], [place] [address] Oct, [facility] [address] [id number] [address] [place] [address], [place] [address] Oct, [facility] [address] [id number] [address] [place] [address], [place] [address] Oct, [facility] [address] [id number] [address] [place] [address], [place] [address] Oct, [facility] [address] [id number] [address] [place] [address], [place] [address] Oct, [facility] [address] [id number] [address] [place] [address], [place] [address] Oct, [facility] [address] [id number] [address] [place] [address], [place] [address] Oct, [facility] [address] [id number] [address] [place] [address], [place] [address] Oct, [facility] [address] [id number] [address] [place] [address], [place] [address] Oct, [facility] [address] [id number] [address] [place] [address], [place] [address] Oct, [facility] [address] [id number] [address] [place] [address], [place] [address] Oct, [facility] [address] [id number] [address] [place] [address], [place] [address] Sep, [facility] [address] [id number] [address] [place] [address], [place] [address] Sep, [facility] [address] [id number] [address] [place] [address], [place] [address] 15 Sep, 2013 [facility] [address] [id number] [address] [place] [address], [place] [address] 15 Sep, 2013 [facility] [address] [id number] [address] [place] [address], [place] [address] Sep, [facility] [address] [id number] [address] [place] [address], [place] [address] Sep, [facility] [address] [id number] [address] [place] [address], [place] [address] Sep, [facility] [address] [id number] [address] [place] [address], [place] [address] Sep, [facility] [address] [id number] [address] [place] [address], [place] [address] Sep, [facility] [address] [id number] [address] [place] [address], [place] [address] Sep, [facility] [address] [id number] [address] [place] [address], [place] [address] Aug, [facility] [address] [id number] [address] [place] [address], [place] [address] Aug, [facility] [address] [id number] [address] [place] [address], [place] [address] Jul, [facility] [address] [id number] [address] [place] [address], [place] [address] Jul, [facility] [address] [id number] [address] [place] [address], [place] [address] Jul, [facility] [address] [id number] [address] [place] [address], [place] [address] 13 Jul, 2013 [facility] [address] [id number] [address] [place] [address], [place] [address] Jul, [facility] [address] [id number] [address] [place] [address], [place] [address] Jul, [facility] [address] [id number] [address] [place] [address], [place] [address] Jul, [facility] [address] [id number] [address] [place] [address], [place] [address] Jul, [facility] [address] [id number] [address] [place] [address], [place] [address] Jul, [facility] [address] [id number] [address] [place] [address], [place] [address] Jul, [facility] [address] [id number] [address] [place] [address], [place] [address] Jul, [facility] [address] [id number] [address] [place] [address], [place] [address] Jul, [facility] [address] [id number] [address] [place] [address], [place] [address] Jul, [facility] [address] [id number] [address] [place] [address], [place] [address] Jul, [facility] [address] [id number] [address] [place] [address], [place] [address] Jul, [facility] [address] [id number] [address] [place] [address], [place] [address] Jul, [facility] [address] [id number] [address] [place] [address], [place] [address] Jul, [facility] [address] [id number] [address] [place] [address], [place] [address] Jul, [facility] [address] [id number] [address] [place] [address], [place] [address] Jul, [facility] [address] [id number] [address] [place] [address], [place] [address] 16 Jun, 2012 [facility] [address] [id number] [address] [place] [address], [place] [address] Jun, 2012 [facility] [address] [id number] [address] [place] [address], [place] [address] 16 Jun, 2012 [facility] [address] [id number] [address] [place] [address], [place] [address] Jun, 2012 [facility] [address] [id number] [address] [place] [address], [place] [address] Jun, 2012 [facility] [address] [id number] [address] [place] [address], [place] [address] 16 Jun, 2012 [facility] [address] [id number] [address] [place] [address], [place] [address] Jun, [facility] [address] [id number] [address] [place] [address], [place] [address] 10 Jun, 2013 [facility] [address] [id number] [address] [place] [address], [place] [address] Jun, [facility] [address] [id number] [address] [place] [address] Jun, [facility] [address] [id number] [address] [place] [address], [place] [address] Jun, [facility] [address] [id number] [address] [place] [address] 26 May, 2012 [facility] [address] [id number] [address] [place] [address], [place] [address] 25 Sep, 2012 [facility] [address] [id number] [address] [place] [address], [place] [address] 19 Sep, 2012 [facility] [address] [id number] [address] [place] [address], [place] [address] 17 Sep, 2012 [facility] [address] [id number] [address] [place] [address] [place] [address] 11 May, 2013 [facility] [address] [id number] [address] [place] [address], [place] [address] 10 May, 2013 [facility] [address] [id number] [address] [place] [address], [place] [address] May, [facility] [address] [id number] [address] [place] [address], [place] [address] May, [facility] [address] [id number] [address] [place] [address], [place] [address] Apr, [facility] [address] [id number] [address] [place] [address], [place] [address] Apr, [facility] [address] [id number] [address] [place] [address], [place] [address] Apr, [facility] [address] [id number] [address] [place] [address], [place] [address] Apr, [facility] [address] [id number] [address] [place] [address], [place] [address] Apr, [facility] [address] [id number] [address] [place] [address], [place] [address] Mar, [facility] [address] [id number] [address] [place] [address], [place] [address] Mar, [facility] [address] [id number] [address] [place] [address], [place] [address] Mar, [facility] [address] [id number] [address] [place] [address], [place] [address] Mar, [facility] [address] [id number] [address] [place] [address], [place] [address] Mar, [facility] [address] [id number] [address] [place] [address], [place] [address] Mar, [facility] [address] [id number] [address] [place] [address], [place] [address] Mar, [facility] [address] [id number] [address] [place] [address], [place] [address] Mar, [facility] [address] [id number] [address] [place] [address], [place] [address] Feb, [facility] [address] [id number] [address] [place] [address], [place] [address] Feb, [facility] [address] [id number] [address] [place] [address], [place] [address] January, [facility] [address] [id number] [address] [place] [address], [place] [address] January, [facility] [address] [id number] [address] [place] [address], [place] [address] Dec, [facility] [address] [id number] [address] [place] [address], [place] [address] Dec, [facility] [address] [id number] [address] [place] [address], [place] [address] Nov, [facility] [address] [id number] [address] [place] [address], [place] [address] Nov, [facility] [address] [id number] [address] [place] [address], [place] [address] Nov, [facility] [address] [id number] [address] [place] [address], [place] [address] Nov, [facility] [address] [id number] [address] [place] [address], [place] [address] Oct, [facility] [address] [id number] [address] [place] [address], [place] [address] Oct, [facility] [address] [id number] [address] [place] [address], [place] [address] Oct, [facility] [address] [id number] [address] [place] [address], [place] [address] Oct, [facility] [address] [id number] [address] [place] [address], [place] [address] 16 Oct, 2012 [facility] [address] [id number] [address] [place] [address], [place] [address] 14 Oct, 2012 [facility] [address] [id number] [address] [place] [address], [place] [address] 08 Oct, 2012 [facility] [address] [id number] [address] [place] [address], [place] [address] 07 Oct, 2012 [facility] [address] [id number] [address] [place] [address], [place] [address] 03 Oct, 2012 [facility] [address] [id number] [address] [place] [address], [place] [address] Sep, [facility] [address] [id number] [address] [place] [address], [place] [address] Sep, [facility] [address] [id number] [address] [place] [address], [place] [address] Sep, [facility] [address] [id number] [address] [place] [address], [place] [address] Sep, [facility] [address] [id number] [address] [place] [address], [place] [address] Sep, [facility] [address] [id number] [address] [place] [address], [place] [address] Sep, [facility] [address] [id number] [address] [place] [address], [place] [address] Sep, [facility] [address] [id number] [address] [place] [address], [place] [address] Sep, [facility] [address] [id number] [address] [place] [address], [place] [address] Aug, [facility] [address] [id number] [address] [place] [address], [place] [address] Aug, [facility] [address] [id number] [address] [place] [address], [place] [address] Aug, [facility] [address] [id number] [address] [place] [address], [place] [address] Aug, [facility] [address] [id number] [address] [place] [address], [place] [address] Aug, [facility] [address] [id number] [address] [place] [address], [place] [address] Aug, [facility] [address] [id number] [address] [place] [address], [place] [address] Aug, [facility] [address] [id number] [address] [place] [address], [place] [address] Aug, [facility] [address] [id number] [address] [place] [address], [place] [address] Jul, [facility] [address] [id number] [address] [place] [address], [place] [address] Jul, [facility] [address] [id number] [address] [place] [address], [place] [address] Jul, [facility] [address] [id number] [address] [place] [address], [place] [address] Jul, [facility] [address] [id number] [address] [place] [address], [place] [address] Jul, [facility] [address] [id number] [address] [place] [address], [place] [address] Jul, [facility] [address] [id number] [address] [place] [address], [place] [address] Jun, [facility] [address] [id number] [address] [place] [address], [place] [address] Jun, [facility] [address] [id number] [address] [place] [address], [place] [address] Jun, [facility] [address] [id number] [address] [place] [address], [place] [address] Jun, [facility] [address] [id number] [address] [place] [address], [place] [address] Jun, [facility] [address] [id number] [address] [place] [address], [place] [address] Jun, [facility] [address] [id number] [address] [place] [address], [place] [address] Jun, [facility] [address] [id number] [address] [place] [address], [place] [address] Jun, [facility] [address] [id number] [address] [place] [address], [place] [address] Jun, [facility] [address] [id number] [address] [place] [address], [place] [address] 26 May, 2012 [facility] [address] [id number] [address] [place] [address], [place] [address] 24 May, 2012 [facility] [address] [id number] [address] [place] [address], [place] [address] 18 May, 2012 [facility] [address] [id number] [address] [place] [address], [place] [address] 30 Apr, 2012 [facility] [address] [id number] [address] [place] [address], [place] [address] Apr, [facility] [address] [id number] [address] [place] [address], [place] [address] Apr, [facility] [address] [id number] [address] [place] [address], [place] [address] Apr, [facility] [address] [id number] [address] [place] [address], [place] [address] Apr, [facility] [address] [id number] [address] [place] [address], [place] [address] Apr, [facility] [address] [id number] [address] [place] [address], [place] [address] Mar, [facility] [address] [id number] [address] [place] [address], [place] [address] Mar, [facility] [address] [id number] [address] [place] [address], [place] [address] 05 Mar, 2012 [facility] [address] [id number] [address] [place] [address], [place] [address] Mar, [facility] [address] [id number] [address] [place] [address], [place] [address] Feb, [facility] [address] [id number] [address] [place] [address], [place] [address] Feb, [facility] [address] [id number] [address] [place] [address], [place] [address] Feb, [facility] [address] [id number] [address] [place] [address], [place] [address] Feb, [facility] [address] [id number] [address] [place] [address], [place] [address] Feb, [facility] [address] [id number] [address] [place] [address], [place] [address] January, [facility] [address] [id number] [address] [place] [address], [place] [address] January, [facility] [address] [id number] [address] [place] [address], [place] [address] January, [facility] [address] [id number] [address] [place] [address], [place] [address] January, [facility] [address] [id number] [address] [place] [address], [place] [address] January, [facility] [address] [id number] [address] [place] [address], [place] [address] January, [facility] [address] [id number] [address] [place] [address], [place] [address] Dec, [facility] [address] [id number] [address] [place] [address], [place] [address] Dec, [facility] [address] [id number] [address] [place] [address], [place] [address] Dec, [facility] [address] [id number] [address] [place] [address], [place] [address] 09 Dec, 2011 [facility] [address] [id number] [address] [place] [address], [place] [address] 06 Dec, 2011 [facility] [address] [id number] [address] [place] [address], [place] [address] 27 Nov, 2011 [facility] [address] [id number] [address] [place] [address], [place] [address] 14 Nov, 2011 [facility] [address] [id number] [address] [place] [address], [place] [address] Nov, [facility] [address] [id number] [address] [place] [address], [place] [address] 07 Nov, 2011 [facility] [address] [id number] [address] [place] [address], [place] [address] 29 Oct, 2011 [facility] [address] [id number] [address] [place] [address], [place] [address] 28 Oct, 2011 [facility] [address] [id number] [address] [place] [address], [place] [address] 24 Oct, 2011 [facility] [address] [id number] [address] [place] [address], [place] [address] 13 Oct, 2011 [facility] [address] [id number] [address] [place] [address], [place] [address] Oct, [facility] [address] [id number] [address] [place] [address], [place] [address] Sep, [facility] [address] [id number] [address] [place] [address], [place] [address] 30 Sep, 2011 [facility] [address] [id number] [address] [place] [address], [place] [address] Sep, [facility] [address] [id number] [address] [place] [address], [place] [address] Sep, [facility] [address] [id number] [address] [place] [address], [place] [address] Sep, [facility] [address] [id number] [address] [place] [address], [place] [address] Sep, [facility] [address] [id number] [address] [place] [address], [place] [address] Aug, [facility] [address] [id number] [address] [place] [address], [place] [address] Aug, [facility] [address] [id number] [address] [place] [address], [place] [address] Aug, [facility] [address] [id number] [address] [place] [address], [place] [address] Jul, [facility] [address] [id number] [address] [place] [address], [place] [address] Jul, [facility] [address] [id number] [address] [place] [address], [place] [address] Jul, [facility] [address] [id number] [address] [place] [address], [place] [address] Jul, [facility] [address] [id number] [address] [place] [address], [place] [address] Jun, [facility] [address] [id number] [address] [place] [address], [place] [address] Jun, [facility] [address] [id number] [address] [place] [address], [place] [address] Jun, [facility] [address] [id number] [address] [place] [address], [place] [address] Jun, [facility] [address] [id number] [address] [place] [address], [place] [address] Jun, [facility] [address] [id number] [address] [place] [address], [place] [address] Jun, [facility] [address] [id number] [address] [place] [address], [place] [address] Mar, [facility] [address] [id number] [address] [place] [address], [place] [address] 18 Dec, 2010 [facility] [address] [id number] [address] [place] [address], [place] [address] 11 Dec, 2010 [facility] [address] [id number] [address] [place] [address], [place] [address] 18 Nov, 2010 [facility] [address] [id number] [address] [place] [address], [place] [address] 16 Nov, 2010 [facility] [address] [id number] [address] [place] [address], [place] [address] 10 Sep, 2010 [facility] [address] [id number] [address] [place] [address], [place] [address] 31 Aug, 2010 [facility] [address] [id number] [address] [place] [address], [place] [address] 29 Aug, 2010 [facility] [address] [id number] [address] [place] [address], [place] [address] 29 Aug, 2010 [facility] [address] [id number] [address] [place] [address], [place] [address] 29 Aug, 2010 [facility] [address] [id number] [address] [place] [address], [place] [address] 27 Aug, 2010 [facility] [address] [id number] [address] [place] [address], [place] [address] 14 Aug, 2010 [facility] [address] [id number] [address] [place] [address], [place] [address] 08 Aug, 2010 [facility] [address] [id number] [address] [place] [address], [place] [address] 08 Aug, 2010 [facility] [address] [id number] [address] [place] [address], [place] [address] 07 Aug, 2010 [facility] [address] [id number] [address] [place] [address], [place] [address] 06 Aug, 2010 [facility] [address] [id number] [address] [address] Aug, [facility] [address] [id number] [address] [place] [address], [place] [address] Aug, [facility] [address] [id number] [address] [place] [address], [place] [address] Jul, [facility] [address] [id number] [address] [place] [address], [place] [address] Jul, [facility] [address] [id number] [address] [place] [address] Jul, [facility] [address] [id number] [address] [place] [address], [place] [address] Jul, [facility] [address] [id number] [address] [place] [address] Jul, [facility] [address] [id number] [address] [place] [address], [place] [address] Jul, [facility] [address] [id number] [address] [place] [address], [place] [address] Jun, [facility] [address] [id number] [address] [place] [phone] Jun, [facility] [address] [id number] [address] [place] [phone] Jun, [facility] [address] [id number] [address] [place] [phone] Jun, [facility] [address] [id number] [address] [place] [phone] Apr, [facility] [address] [id number] [address] [place] [address], [place] [address] Mar, [facility] [address] [id number] [address] [place] [phone] Feb, [facility] [address] [id number] [address] [place] [phone] January, [facility] [address] [id number] [address] [place] [address], [place] [phone] 15 Dec, 2009 [facility] [address] [id number] [address] [place] [address], [place] [address] Nov, [facility] [address] [id number] [address] [place] [address], [place] [address] Aug, [facility] [address] [id number] [address] [place] [address], [place] [address] Aug, [facility] [address] [id number] [address] [place] [address], [place] [address] Aug, [facility] [address] [id number] [address] [place] [address], [place] [address] Jul, [facility] [address] [id number] [address] [place] [address], [place] [address] Jul, [facility] [address] [id number] [address] [place] [address], [place] [address] Jul, [facility] [address] [id number] [address] [place] [address], [place] [address] 30 Jun, 2009 [facility] [address] [id number] [address] [place] [address], [place] [address] 29 Jun, 2009 [facility] [address] [id number] [address] [place] [address], [place] [address] Jun, [facility] [address] [id number] [address] [place] [address], [place] [address] Jun, [facility] [address] [id number] [address] [place] [phone] Jun, [facility] [address] [id number] [address] [place] [address], [place] [address] Jun, [facility] [address] [id number] [address] [place] [phone] Apr, [facility] [address] [id number] [address] [place] [phone] Apr, [facility] [address] [facility] [id number] [address] [place] [phone] Feb, [facility] [address] [facility] [id number] [address] [place] [phone] January, [facility] [address] [facility] [id number] [address] [place] [phone] Dec, IMMUNIZATIONS No Known Immunizations SOCIAL HISTORY [...] EGD ([facility]) 2009 Surgical History colonoscopy 2009 ([facility]), 2013 ([place] ) Surgical History heart cath: CAD w/ [...] Hospitalization History [facility] e[facility] 2000's Hospitalization History hyperkalemia 10/2017 Hospitalization History fluid in lung
--- OUTSIDE RECORDS SUMMARY | 2020-03-01 18:23 | XMS REPORT ---
Author Author Michele Verduzco Doctor Organization [facility] Address Unknown Phone Unavailable Care Team Providers Care Horticultural Therapist Name Role Phone Migration, Doctor Unavailable Unavailable PROBLEMS Type Condition ICD9-CM Code GKL02-KM Code Onset Dates Condition S tatus SNOMED Code Problem Cough R05 Active 20278785 Problem Benign prostatic hyperplasia with lower urinary tract symptoms, unspecified morphology N40.1 Active 52880 6007 Problem Eustachian tube dysfunction, unspecified laterality H69.80 Active 37405343 Problem Chronic pain G89.29 Active 6949769 1 Problem DM neuro manif type II E11.49 Active 99302170 Problem Diabetes E11.9 Active 18185029 Problem Leukocytosis D72.829 Active 4059340 06 Problem Falling R29.6 Active 822668910 Problem Pressure ulcer of other site, stage 3 L89.893 Active 487688455 Problem 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 Active 873154111 Problem Eye exam abnormal R93.8 Active 16 0011642 Problem Dysuria R30.0 Active 97158439 Problem Hypokalemia E87.6 Active 85349425 Problem Morbid obesity E66.01 Active 34147 6002 Problem Anxiety F41.9 Active 92611072 Problem Diabetic polyneuropathy associated with type 2 d iabetes mellitus E11.42 Active 15890940 Problem Essential hypertension I10 Active 80306254 Problem Bilateral primary osteoarthritis of knee M17.0 Active 677316271 Problem Polyneuropathy associated with underlying disease G63 Active 174915783 Problem Anemia of chronic illness D63.8 Acti ve 879553314 Problem Lymphocytosis D72.820 Active 190956 09 Problem Retinal edema H35.81 Active 854538 6 Problem Chronic lymphocytic leukemia C91.10 A ctive 98352410 Problem Bipolar disorder, in partial remission, most rec ent episode depressed F31.75 Active 27145689 Problem Pure hypercholesterolemia E78.00 Acti ve 827146233 Problem Primary osteoarthritis of right knee M17.11 Active 568480930032388 Problem Bipolar disorder F31.9 Active 137 57484 Problem Bipolar I disorder, most recent episode (or curr ent) mixed, moderate F31.62 Active 33365908 Problem Chronic diastolic (congestive) heart failure I50.3 2 Active 454501725 Problem Reactive airway disease J45.909 Active 188677498730 Problem Insomnia, unspecified type G47.00 Act sharon 890939693 Problem Other chronic pain G89.29 Active 8 8431034 Problem Other iron deficiency anemia D50.8 A ctive 39165248 Problem Mild cognitive impairment G31.84 Acti ve 333565689 Problem Skin cancer C44.90 Active 71658243 7 ALLERGIES No Information ENCOUNTERS Encounter Location Date Diagnosis [facility] [address] [facility] [id number] [address] [place] [address] Mar, [place] [address] [facility] [id number] [address] [place] [address] Mar, Bipolar disorder F31.9 and C hronic pain G89.29 [facility] [address] [facility] [id number] [address] [place] [id number] Feb, Bipolar disorder F31.9 [facility] [address] [facility] [id number] [address] [place] [address] Feb, Cellulitis of right upper ex tremity L03.113 and Skin abrasion T14.8XXA [facility] [address] [facility] [id number] [address] [place] [address] Feb, Bipolar disorder, in partial remission, most recent episode depressed F31.75 and Mild cognitive impairment G31.84 [facility] [address] [facility] [id number] [address] [place] [address] Feb, Chronic pain G89.29 [facility] [address] [facility] [id number] [address] [place] [id number] Feb, Bipolar disorder, in partial remission, most recent episode depressed F31.75 and Mild cognitive impairment G31.84 [facility] [address] [facility] [id number] [address] [place] [address] January, Bipolar disorder, in partial remission, most recent episode depressed F31.75 and Mild cognitive impairment G31.84 [facility] [address] [id number] [address] [place] [id number] 16 Jan, 2019 Chronic pain G89.29 and Bipo lar disorder F31.9 [facility] [address] [id number] [address] [place] [id number] January, Bipolar disorder, in partial remission, most recent episode depressed F31.75 and Mild cognitive impairment G31.84 [facility] [address] [id number] [address] [place] [address] Dec, [facility] [address] [id number] [address] [place] [id number] Dec, Chronic pain G89.29 and Bipo lar disorder F31.9 [facility] [address] [id number] [address] [place] [id number] Dec, Edema of both lower extremit ies R60.0 [facility] [address] [id number] [address] [place] [id number] Dec, Bipolar disorder F31.9 [facility] [address] [id number] [address] [place] [id number] Dec, Bipolar disorder, in partial remission, most recent episode depressed F31.75 and Mild cognitive impairment G31.84 [facility] [address] [id number] [address] [place] [address] Nov, [facility] [address] [id number] [address] [place] [id number] Nov, Chronic pain G89.29 [facility] [address] [id number] [address] [place] [address] Nov, Bipolar disorder, in partial remission, most recent episode depressed F31.75 and Mild cognitive impairment G31.84 [facility] [address] [id number] [address] [place] [address] Nov, Bipolar disorder F31.9 [facility] [address] [address] 04 Nov, 2018 Encounter for Medicare annua [...] unspecified morphology N40.1 and Essential hypertension I10 [address] [address] 21 Oct, 2018 Chronic pain G89.[address] [address] 18 Oct, 2018 Diabetes E11.[address] [address] Oct, Bipolar I disorder, most rec ent episode (or current) mixed, moderate F31.62 and Mild cognitive impairment G31.[address] [address] 06 Oct, 2018 Bipolar I disorder, most rec ent episode (or current) mixed, moderate F31.62 and Mild cognitive impairment G31.[address] [address] Sep, Bipolar I disorder, most rec ent episode (or current) mixed, moderate F31.62 and Mild cognitive impairment G31.[address] [address] Sep, [address] [address] Sep, Diabetes E11.9 ; Hypoxia R09 .02 ; Hyperglycemia R73.9 ; Therapeutic drug monitoring Z51.81 ; BMI 50.0-59.9, adult Z68.43 and Skin cancer C44.90 [facility] [address] [id number] [address] [place] [address] Sep, Chronic pain G89.29 [facility] [address] [id number] [address] [place] [id number] Sep, Bipolar I disorder, most rec ent episode (or current) mixed, moderate F31.62 [facility] [address] [id number] [address] [place] [address] Sep, [facility] [address] [id number] [address] [place] [id number] Sep, [facility] [address] [id number] [address] [place] [address] Aug, Chronic pain G89.29 [facility] [address] [id number] [address] [place] [address] Aug, Bipolar I disorder, most rec ent episode (or current) mixed, moderate F31.62 [facility] [address] [id number] [address] [place] [address] Aug, Bipolar I disorder, most rec ent episode (or current) mixed, moderate F31.62 and Mild cognitive impairment G31.84 [facility] [address] [id number] [address] [place] [address] Jul, [facility] [address] [id number] [address] [place] [address] Jul, Chronic pain G89.29 [facility] [address] [id number] [address] [place] [address] Jul, Bipolar I disorder, most rec ent episode (or current) mixed, moderate F31.62 and Mild cognitive impairment G31.84 [facility] [address] [id number] [address] [place] [id number] Jul, Bipolar I disorder, most rec ent episode (or current) mixed, moderate F31.62 and MCI (mild cognitive impairment) G31.84 [facility] [address] [id number] [address] [place] [id number] Jul, [facility] [address] [id number] [address] [place] [id number] Jul, [facility] [address] [id number] [address] [place] [id number] Jul, Bipolar I disorder, most rec ent episode (or current) mixed, moderate F31.62 [facility] [address] [id number] [address] [place] [address] Jul, Chronic pain G89.29 [facility] [address] [id number] [address] [place] [address] Jun, Bipolar I disorder, most rec ent episode (or current) mixed, moderate F31.62 [facility] [address] [facility] [id number] [address] [place] [address] Jun, Pre-procedure lab exam Z01.8 12 [facility] [address] [id number] [address] [place] [id number] Jun, [facility] [address] [id number] [place] [id number] Jun, [facility] [address] [id number] [address] [place] [id number] Jun, [facility] [address] [facility] [id number] [address] [place] [address] Jun, Forgetfulness R68.89 ; Pre-s yncope R55 ; Localized edema R60.0 ; Other iron deficiency anemia D50.8 and BMI 50.0-59.9, adult Z68.43 [facility] [address] [id number] [address] [place] [id number] Jun, Chronic pain G89.29 [facility] [address] [id number] [address] [place] [address] Jun, Chronic pain G89.29 [place] [address] [place] [id number] [address] [place] [id number] Jun, Bipolar I disorder, most rec ent episode (or current) mixed, moderate F31.62 [place] [address] [place] [id number] [address] [place] [id number] 07 May, 2018 Chronic pain G89.29 [place] [address] [place] [id number] [address] [place] [id number] Apr, [place] [address] [place] [id number] [place] [address] Apr, Chronic pain G89.29 [place] [address] [address] Apr, Primary osteoarthritis of ri ght knee M17.11 [place] [address] [address] Mar, [place] [address] [address] Mar, BMI 50.0-59.9, adult Z68.43 and Bipolar disorder, in partial remission, most recent episode depressed F31.75 [place] [address] [address] Mar, Diabetes E11.9 ; Pure hyperc holesterolemia E78.00 ; Essential hypertension I10 ; Nausea with vomiting, unspecified R11.2 and Headache, unspecified headache type R51 [place] [address] [address] Mar, Bipolar I disorder, most rec ent episode (or current) mixed, moderate F31.62 [place] [address] [address] Mar, Bipolar I disorder, most rec ent episode (or current) mixed, moderate F31.62 [place] [address] [address] Mar, Chronic pain G89.29 [facility] [address] [facility] [id number] [address] [place] [address] Mar, Bipolar I disorder, most rec ent episode (or current) mixed, moderate F31.62 [facility] [address] [facility] [id number] [address] [place] [id number] Feb, Bipolar I disorder, most rec ent episode (or current) mixed, moderate F31.62 [facility] [address] [facility] [id number] [address] [place] [id number] 14 Feb, 2018 Chronic pain G89.29 [facility] [address] [facility] [id number] [address] [place] [id number] Feb, Decubitus ulcer of right josselin t, stage 3 L89.893 and BMI 50.0-59.9, adult Z68.43 [facility] [address] [place] [id number] [address] [place] [id number] Feb, Bipolar I disorder, most rec ent episode (or current) mixed, moderate F31.62 [facility] [address] [facility] [id number] [address] [place] [id number] Feb, [facility] [address] [facility] [id number] [address] [place] [address] January, [facility] [address] [facility] [id number] [address] [place] [id number] January, Chronic pain G89.29 [facility] [address] [facility] [id number] [address] [place] [id number] January, Bipolar I disorder, most rec ent episode (or current) mixed, moderate F31.62 [facility] [address] [facility] [id number] [address] [place] [id number] January, Bipolar I disorder, most rec ent episode (or current) mixed, moderate F31.62 [facility] [address] [facility] [id number] [address] [place] [address] Dec, Bipolar I disorder, most rec ent episode (or current) mixed, moderate F31.62 and BMI 50.0-59.9, adult Z68.43 [facility] [address] [place] [id number] [place] [address] Dec, Bipolar I disorder, most rec ent episode (or current) mixed, moderate F31.62 [place] [address] [place] [id number] [address] [place] [id number] Dec, Chronic pain G89.29 [place] [address] [facility] [id number] [address] [place] [address] Dec, DM neuro manif type II E11.4 9 ; Right flank pain R10.9 ; intermediate current use of opiate analgesic Z79.891 ; Encounter for medication monitoring Z51.81 and BMI 50.0-59.9, adult Z68.43 [place] [address] [place] [id number] [address] [place] [id number] Dec, Bipolar I disorder, most rec ent episode (or current) mixed, moderate F31.62 [place] [address] [place] [id number] [address] [place] [id number] Nov, Bipolar I disorder, most rec ent episode (or current) mixed, moderate F31.62 [place] [address] [place] [id number] [address] [place] [address] Nov, Chronic pain G89.29 [facility] [address] [place] [id number] [address] [place] [id number] Nov, Bipolar I disorder, most rec ent episode (or current) mixed, moderate F31.62 [place] [address] [place] [id number] [address] [place] [id number] Nov, Hypokalemia E87.6 [place] [address] [place] [id number] [address] [place] [id number] Nov, Bipolar I disorder, most rec ent episode (or current) mixed, moderate F31.62 [place] [address] [place] [id number] [address] [place] [id number] Oct, Chronic pain G89.29 [place] [address] [place] [id number] [place] [address] Oct, BMI 50.0-59.9, adult Z68.43 and Bipolar I disorder, most recent episode (or current) mixed, moderate F31.62 [place] [address] [place] [id number] [address] [place] [address] Oct, Bipolar I disorder, most rec ent episode (or current) mixed, moderate F31.62 [place] [address] [place] [id number] [place] [address] Oct, [place] [address] [place] [id number] [place] [address] Oct, Hypokalemia E87.6 [place] [address] [place] [id number] [place] [address] Oct, DM neuro manif type II E11.4 9 [place] [address] [place] [id number] [address] [place] [id number] Oct, Bipolar I disorder, most rec ent episode (or current) mixed, moderate F31.62 [place] [address] [place] [id number] [address] [place] [id number] Oct, Bipolar I disorder, most rec ent episode (or current) mixed, moderate F31.62 [place] [address] [facility] [id number] [address] [place] [address] 14 Oct, 2017 Hyperkalemia E87.5 ; Falling R29.6 ; BMI 50.0-59.9, adult Z68.43 and Acute left ankle pain M25.572 [place] [address] [place] [id number] [address] [place] [address] 08 Oct, 2017 DM neuro manif type II E11.4 9 [place] [address] [facility] [id number] [address] [place] [address] Oct, [facility] [address] [facility] [id number] [address] [place] [address] Sep, Chronic pain G89.29 [facility] [address] [place] [id number] [address] [place] [address] Sep, [place] [address] [place] [id number] [address] [place] [address] Sep, Bilateral primary osteoarthr itis of knee M17.0 [place] [address] [place] [id number] [address] [place] [address] Sep, Generalized edema R60.1 [place] [address] [place] [id number] [place] [address] Sep, Bipolar I disorder, most rec ent episode (or current) mixed, moderate F31.62 [place] [address] [place] [id number] [address] [place] [address] Sep, Hypoxia R09.02 ; Other hyper volemia E87.79 ; Diabetes E11.9 ; Retinal edema H35.81 ; Hypokalemia E87.6 ; 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 ; Anemia of chronic illness D63.8 and BMI 50.0- 59.9, adult Z68.43 [place] [address] [place] [id number] [address] [place] [address] Sep, [place] [address] [place] [id number] [address] [place] [address] Sep, Bipolar I disorder, most rec ent episode (or current) mixed, moderate F31.62 [place] [address] [place] [id number] [address] [place] [address] Aug, Chronic pain G89.29 [place] [address] [place] [id number] [address] [place] [address] Aug, Generalized edema R60.1 [place] [address] [place] [id number] [address] [place] [address] Aug, [facility] [address] [facility] [id number] [address] [place] [address] Aug, [facility] [address] [place] [id number] [place] [address] Aug, Bipolar I disorder, most rec ent episode (or current) mixed, moderate F31.62 [place] [address] [place] [id number] [place] [address] Aug, Bipolar I disorder, most rec ent episode (or current) mixed, moderate F31.62 [place] [address] [place] [id number] [place] [address] Aug, Chronic pain G89.29 [place] [address] [place] [id number] [address] [place] [address] Jul, Bipolar I disorder, most rec ent episode (or current) mixed, moderate F31.62 [place] [address] [place] [id number] [address] [place] [address] Jul, Bipolar I disorder, most rec ent episode (or current) mixed, moderate F31.62 and BMI 60.0-69.9, adult Z68.44 [place] [address] [place] [id number] [address] [place] [address] 16 Jul, 2017 Bipolar I disorder, most rec ent episode (or current) mixed, moderate F31.62 [place] [address] [place] [id number] [address] [place] [address] Jul, Chronic pain G89.29 [place] [address] [facility] [id number] [address] [place] [address] 02 Jul, 2017 Bipolar I disorder, most rec ent episode (or current) mixed, moderate F31.62 [place] [address] [place] [id number] [address] [place] [address] Jun, Polyneuropathy associated wi th underlying disease G63 and Diabetes E11.9 [place] [address] [place] [id number] [address] [place] [address] 16 Jun, 2017 Bipolar I disorder, most rec ent episode (or current) mixed, moderate F31.62 [facility] [address] [facility] [id number] [address] [place] [address] 09 Jun, 2017 Chronic pain G89.29 [facility] [address] [facility] [id number] [address] [place] [address] May, Bipolar I disorder, most rec ent episode (or current) mixed, moderate F31.62 [place] [address] [facility] [id number] [address] [place] [id number] 21 May, 2017 Bipolar I disorder, most rec ent episode (or current) mixed, moderate F31.62 [place] [address] [facility] [id number] [address] [place] [address] 20 May, 2017 Diabetic polyneuropathy asso ciated with type 2 diabetes mellitus E11.42 [place] [address] [facility] [id number] [address] [place] [id number] 18 May, 2017 Bipolar I disorder, most rec ent episode (or current) mixed, moderate F31.62 [place] [address] [facility] [id number] [address] [place] [id number] 13 May, 2017 Bipolar I disorder, most rec ent episode (or current) mixed, moderate F31.62 [place] [address] [facility] [id number] [address] [place] [address] May, Chronic pain G89.29 [facility] [address] [facility] [id number] [address] [place] [address] Apr, Bipolar I disorder, most rec ent episode (or current) mixed, moderate F31.62 [place] [address] [facility] [id number] [address] [place] [address] Apr, [facility] [address] [facility] [id number] [address] [place] [address] Apr, Chronic pain G89.29 and DM n euro manif type II E11.49 [facility] [address] [id number] [address] [place] [id number] Apr, [facility] [address] [facility] [id number] [address] [place] [address] Apr, Bipolar I disorder, most rec ent episode (or current) mixed, moderate F31.62 [facility] [address] [facility] [id number] [address] [place] [address] Apr, Chronic pain G89.29 [facility] [address] [id number] [address] [place] [address] Apr, Iliotibial band syndrome, le ft M76.32 [facility] [address] [facility] [id number] [address] [place] [id number] Apr, Bipolar I disorder, most rec ent episode (or current) mixed, moderate F31.62 [facility] [address] [facility] [id number] [address] [place] [id number] Mar, Bipolar I disorder, most rec ent episode (or current) mixed, moderate F31.62 [facility] [address] [id number] [address] [place] [id number] Mar, Bipolar I disorder, most rec ent episode (or current) mixed, moderate F31.62 [facility] [address] [facility] [id number] [address] [place] [phone] Mar, [facility] [address] [id number] [address] [place] [id number] Mar, Bipolar I disorder, most rec ent episode (or current) mixed, moderate F31.62 [facility] [address] [facility] [id number] [address] [place] [id number] Mar, Chronic pain G89.29 [facility] [address] [facility] [id number] [address] [place] [id number] Mar, Bipolar I disorder, most rec ent episode (or current) mixed, moderate F31.62 [facility] [facility] [address] [facility] [id number] [address] [place] [id number] Mar, Bipolar I disorder, most rec ent episode (or current) mixed, moderate F31.62 [facility] [address] [facility] [id number] [address] [place] [address] Mar, Acute pain of left knee M25. 562 ; Left hip pain M25.552 ; Generalized edema R60.1 and Tongue swelling R22.0 [facility] [address] [id number] [address] [place] [id number] Mar, [facility] [address] [facility] [id number] [address] [place] [id number] Feb, Chronic pain G89.29 [facility] [address] [facility] [id number] [address] [place] [address] Feb, Diabetes E11.9 [facility] [address] [facility] [id number] [address] [place] [id number] January, Chronic pain G89.29 [facility] [address] [facility] [id number] [address] [place] [address] January, [facility] [address] [facility] [id number] [address] [place] [id number] January, Bipolar I disorder, most rec ent episode (or current) mixed, moderate F31.62 [facility] [address] [facility] [id number] [address] [place] [id number] Dec, Bipolar I disorder, most rec ent episode (or current) mixed, moderate F31.62 [facility] [address] [facility] [id number] [address] [place] [address] Dec, Chronic pain G89.29 [facility] [address] [facility] [id number] [address] [place] [id number] Dec, Bipolar I disorder, most rec ent episode (or current) mixed, moderate F31.62 [facility] [address] [facility] [id number] [address] [place] [address] Dec, Diabetes E11.9 ; Essential h ypertension I10 ; Chronic pain G89.29 and Morbid obesity E66.01 [facility] [address] [id number] [address] [place] [address] Dec, [facility] [address] [id number] [address] [place] [address] Dec, Bipolar I disorder, most rec ent episode (or current) mixed, moderate F31.62 [facility] [address] [id number] [address] [place] [id number] Dec, Bipolar I disorder, most rec ent episode (or current) mixed, moderate F31.62 [facility] [address] [id number] [address] [place] [id number] Nov, Chronic pain G89.29 [facility] [address] [id number] [address] [place] [id number] Nov, Bipolar I disorder, most rec ent episode (or current) mixed, moderate F31.62 [facility] [address] [id number] [address] [place] [id number] Nov, [facility] [address] [id number] [address] [place] [id number] Nov, Bipolar I disorder, most rec ent episode (or current) mixed, moderate F31.62 [facility] [address] [id number] [address] [place] [id number] Nov, Bipolar I disorder, most rec ent episode (or current) mixed, moderate F31.62 [facility] [address] [id number] [address] [place] [id number] Nov, [facility] [address] [id number] [address] [place] [id number] Nov, [facility] [address] [id number] [address] [place] [id number] Nov, [facility] [address] [id number] [address] [place] [id number] Oct, Chronic pain G89.29 [facility] [address] [facility] [id number] [address] [place] [id number] Oct, Bipolar I disorder, most rec ent episode (or current) mixed, moderate F31.62 [facility] [address] [facility] [id number] [address] [place] [address] Oct, [facility] [address] 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 [id number] [address] [place] [id number] Oct, [facility] [address] [facility] [id number] [address] [place] [id number] Oct, Diabetes E11.9 [facility] [address] [facility] [id number] [address] [place] [id number] Oct, Bipolar I disorder, most rec ent episode (or current) mixed, moderate F31.62 [facility] [address] [facility] [id number] [address] [place] [id number] Sep, Chronic pain G89.29 [facility] [address] [facility] [id number] [address] [place] [id number] Sep, Chronic pain G89.29 [facility] [address] [facility] [id number] [address] [place] [address] Aug, Chronic pain G89.29 [facility] [address] [facility] [id number] [address] [place] [address] Jul, [facility] [address] [facility] [id number] [address] [place] [address] Jul, Diabetes E11.9 [facility] [address] [facility] [id number] [address] [place] [id number] Jul, Chronic pain G89.29 [facility] [address] [id number] [address] [place] [id number] Jul, Bipolar I disorder, most rec ent episode (or current) mixed, moderate F31.62 [facility] [address] [facility] [id number] [address] [place] [id number] Jun, Bipolar I disorder, most rec ent episode (or current) mixed, moderate F31.62 [facility] [address] [id number] [address] [place] [id number] Jun, [facility] [address] [facility] [id number] [address] [place] [id number] Jun, Bipolar I disorder, most rec ent episode (or current) mixed, moderate F31.62 [place] [address] [facility] [id number] [address] [place] [address] May, Insomnia, unspecified type G 47.00 [facility] [address] [id number] [address] [place] [id number] May, Bipolar I disorder, most rec ent episode (or current) mixed, moderate F31.62 [facility] [address] [facility] [id number] [address] [place] [id number] 14 May, 2016 [facility] [address] [facility] [id number] [address] [place] [id number] May, Bipolar I disorder, most rec ent episode (or current) mixed, moderate F31.62 [facility] [address] [facility] [id number] [address] [place] [address] May, Diabetes E11.9 and Essential hypertension I10 [facility] [address] [id number] [address] [place] [id number] Apr, Chronic pain G89.29 [facility] [address] [facility] [id number] [address] [place] [id number] Apr, Bipolar I disorder, most rec ent episode (or current) mixed, moderate F31.62 [facility] [address] [facility] [id number] [address] [place] [id number] Apr, [facility] [address] [facility] [id number] [address] [place] [id number] Apr, [facility] [address] [place] [id number] [address] [place] [id number] Mar, Chronic pain G89.29 ; Headac he, unspecified headache type R51 ; Neuropathy G62.9 ; Pain of right hip joint M25.551 and Essential hypertension I10 [place] [address] [facility] [id number] [address] [place] [address] Mar, Chronic pain G89.29 [place] [place] [address] [place] [id number] [address] [place] [address] Mar, Bipolar I disorder, most rec ent episode (or current) mixed, moderate F31.62 [place] [address] [place] [id number] [address] [place] [id number] Feb, Bipolar I disorder, most rec ent episode (or current) mixed, moderate F31.62 and Insomnia, unspecified type G47.00 [place] [address] [place] [id number] [address] [place] [address] Feb, Chronic pain G89.29 [place] [address] [place] [id number] [address] [place] [address] Feb, Bipolar I disorder, most rec ent episode (or current) mixed, moderate F31.62 [place] [address] [facility] [id number] [address] [place] [id number] January, Bipolar I disorder, most rec ent episode (or current) mixed, moderate F31.62 [place] [address] [facility] [id number] [address] [place] [address] January, Chronic pain G89.29 [place] [address] [place] [id number] [address] [place] [id number] January, Chronic pain G89.29 and Esse ntial hypertension I10 [facility] [id number] [place] [address] January, Bipolar I disorder, most rec ent episode (or current) mixed, moderate F31.62 [facility] [address] [place] [id number] [address] [place] [id number] Dec, [facility] [address] [place] [id number] [place] [address] Dec, [facility] [address] [place] [id number] [address] [place] [address] Dec, [facility] [address] [place] [id number] [place] [address] Dec, [facility] [address] [address] Nov, Reactive airway disease J45. 909 [facility] [address] [place] [id number] [place] [address] Nov, [facility] [address] [id number] Nov, [facility] [address] [address] Nov, [facility] [address] [address] Nov, [facility] [address] [address] Nov, Onychomycosis B35.1 ; Hammer toe M20.40 ; [place] or callus L84 and DM neuro manif type II E11.49 [facility] [address] [place] [id number] [address] [place] [address] Nov, Chronic pain G89.29 ; Leukoc ytosis D72.829 and Diabetes E11.9 [facility] [address] [place] [id number] [address] [place] [address] Nov, [facility] [address] [address] Oct, Bronchitis J40 [facility] [address] [address] Oct, [facility] [address] [address] Oct, [facility] [address] [address] Oct, Mastoiditis, unspecified lat erality H70.90 and Type 2 diabetes mellitus with complication E11.8 [place] [address] [address] Sep, [place] [address] [address] Sep, Dysuria R30.0 ; Cough R05 ; Benign prostatic hyperplasia with lower urinary tract symptoms, unspecified morphology N40.1 ; Hypokalemia E87.6 and Eustachian tube dysfunction, unspecified laterality H69.80 [place] [address] [address] Sep, Moderate mixed bipolar I dis order F31.62 [place] [address] [address] Sep, Hypokalemia E87.6 [place] [address] [address] Sep, [place] [address] [address] Sep, Upper respiratory tract infe ction, unspecified type J06.9 [place] [address] [address] Aug, [facility] [address] [address] Aug, Dysuria R30.0 [facility] [address] [id number] [address] [place] [address] Aug, [facility] [address] [id number] [address] [place] [address] Jul, [facility] [address] [id number] [address] [place] [id number] Jul, [facility] [address] [id number] [address] [place] [address] Jul, [facility] [address] [id number] [address] [place] [id number] Jul, [facility] [address] [id number] [address] [place] [address] Jun, [facility] [address] [id number] [address] [place] [address] Jun, [facility] [address] [id number] [address] [place] [id number] Jun, [facility] [address] [id number] [address] [place] [id number] May, [facility] [address] [id number] [address] [place] [address] May, Bipolar I disorder, most rec ent episode (or current) mixed, moderate 296.62 [facility] [address] [id number] [address] [place] [address] 16 May, 2015 [facility] [address] [id number] [address] [place] [id number] May, Bipolar I disorder, most rec ent episode (or current) mixed, moderate 296.62 and Major depressive disorder, recurrent episode, severe, specified as with psychotic behavior 296.34 [facility] [address] [id number] [address] [place] [address] May, Bipolar I disorder, most rec ent episode (or current) mixed, moderate 296.62 [facility] [address] [id number] [address] [place] [id number] May, [facility] [address] [id number] [address] [place] [id number] Apr, [facility] [address] [facility] [id number] [address] [place] [id number] Apr, [facility] [address] [facility] [id number] [address] [place] [id number] Apr, Unspecified disorder of kidn ey and ureter 593.9 and Diabetes mellitus type 2, uncontrolled 250.02 [facility] [address] [id number] [address] [place] [address] Apr, [facility] [address] [facility] [id number] [address] [place] [address] Apr, [facility] [address] [facility] [id number] [address] [place] [address] Apr, [facility] [address] [id number] [address] [place] [id number] Apr, [facility] [address] [facility] [id number] [address] [place] [address] Apr, Diabetes mellitus type II, u ncontrolled 250.02 [facility] [address] [facility] [id number] [address] [place] [id number] Apr, [facility] [address] [id number] [address] [place] [address] Mar, [facility] [address] [id number] [address] [place] [address] Mar, [facility] [address] [facility] [id number] [address] [place] [address] Mar, [facility] [address] [facility] [id number] [address] [place] [address] Mar, Major depressive disorder, r ecurrent episode, severe, specified as with psychotic behavior 296.34 and Bipolar I disorder, most recent episode (or current) mixed, moderate 296.62 [facility] [address] [address] Mar, Diabetes 250.00 ; Anuria 788 .5 ; Nausea and vomiting 787.01 and Diarrhea 787.91 [facility] [address] [address] Mar, Diabetes 250.00 [facility] [address] [place] [id number] [place] [address] Mar, [facility] [address] [address] Mar, Diabetes 250.00 [facility] [address] [place] [id number] [place] [address] Mar, [facility] [address] [address] Mar, [facility] [address] [place] [id number] [address] [place] [address] Mar, [facility] [address] [address] Mar, [facility] [address] [address] Mar, Bipolar I disorder, most rec ent episode (or current) mixed, moderate 296.62 and Major depressive disorder, recurrent episode, severe, specified as with psychotic behavior 296.34 [facility] [address] [place] [id number] [address] [place] [address] Mar, Magnesium deficiency 275.2 ; Hypokalemia 276.8 ; Nausea & vomiting 787.01 and Diabetes mellitus type 2, uncontrolled 250.02 [facility] [address] [place] [id number] [address] [place] [address] Feb, [facility] [address] [address] Feb, Bipolar I disorder, most rec ent episode (or current) mixed, moderate 296.62 [place] [address] [address] Feb, Nausea and vomiting 787.01 ; Left elbow pain 719.42 ; Anuria 788.5 and Diabetes 250.[address] [address] Feb, [place] [address] [address] Feb, Hypopotassemia 276.8 and Hyp okalemia 276.[address] [address] Feb, Hypopotassemia 276.8 and Hyp okalemia 276.[address] [address] Feb, Seborrheic keratoses 702.19 [place] [address] [address] Feb, Hypopotassemia 276.8 and Low magnesium levels 275.2 [place] [address] [address] January, [place] [address] [address] January, [place] [address] [address] January, [place] [address] [place] [id number] [place] [address] January, Scalp lesion 709.9 [place] [address] [place] [id number] [place] [address] January, [place] [address] [address] 30 Apr, 2015 Tear of medial cartilage or meniscus of knee, current 836.0 and 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 [address] [id number] [address] [place] [id number] 14 Dec, 2014 [facility] [address] [id number] [address] [place] [id number] Dec, [facility] [address] [id number] [address] [place] [id number] Nov, [facility] [address] [id number] [address] [place] [address] Nov, [facility] [address] [id number] [address] [place] [address] Nov, [facility] [address] [id number] [address] [place] [id number] Nov, [facility] [address] [id number] [address] [place] [id number] Nov, [facility] [address] [id number] [address] [place] [address] Nov, [facility] [address] [id number] [address] [place] [id number] Nov, [facility] [address] [id number] [address] [place] [id number] Nov, [facility] [address] [id number] [address] [place] [id number] Nov, [facility] [address] [id number] [address] [place] [phone] Nov, [facility] [address] [id number] [address] [place] [address], [place] [address] Nov, [facility] [address] [id number] [address] [place] [address], [place] [address] Nov, [facility] [address] [id number] [address] [place] [address], [place] [address] Oct, 2014 [facility] [address] [id number] [address] [place] [address], [place] [address] Oct, 2014 [facility] [address] [id number] [address] [place] [address], [place] [address] Oct, 2014 [facility] [address] [id number] [address] [place] [address], [place] [address] Oct, 2014 [facility] [address] [id number] [address] [place] [address], [place] [address] Oct, 2014 [facility] [address] [id number] [address] [place] [address], [place] [address] Oct, 2014 [facility] [address] [id number] [address] [place] [address], [place] [address] Oct, 2014 [facility] [address] [id number] [address] [place] [address], [place] [address] Oct, [facility] [address] [id number] [address] [place] [address], [place] [address] Oct, [facility] [address] [id number] [address] [place] [id number] Sep, [facility] [address] [id number] [address] [place] [id number] Sep, [facility] [address] [id number] [address] [place] [id number] Sep, [facility] [address] [id number] [address] [place] [id number] Sep, [facility] [address] [id number] [address] [place] [address], [place] [address] Sep, [facility] [address] [id number] [address] [place] [address], [place] [address] Sep, [facility] [address] [id number] [address] [place] [address], [place] [address] Sep, [facility] [address] [id number] [address] [place] [address], [place] [address] Sep, [facility] [address] [id number] [address] [place] [address], [place] [address] Sep, [facility] [address] [id number] [address] [place] [address], [place] [address] Sep, [facility] [address] [id number] [address] [place] [address], [place] [address] Sep, [facility] [address] [id number] [address] [place] [address], [place] [address] Sep, [facility] [address] [id number] [address] [place] [address], [place] [address] Sep, [facility] [address] [id number] [address] [place] [address], [place] [address] Sep, [facility] [address] [id number] [address] [place] [address], [place] [address] Sep, [facility] [address] [id number] [address] [place] [address], [place] [address] Sep, [facility] [address] [id number] [address] [place] [address], [place] [address] Aug, [facility] [address] [id number] [address] [place] [address], [place] [address] Aug, [facility] [address] [id number] [address] [place] [address], [place] [address] Aug, [facility] [address] [id number] [address] [place] [address], [place] [address] Aug, [facility] [address] [id number] [address] [place] [address] Aug, [facility] [address] [id number] [facility], [place] [address] Aug, [facility] [address] [id number] [facility] [place] [address] Aug, [facility] [address] [id number] [address] [place] [address], [place] [address] Aug, [facility] [address] [id number] [facility] [place] [address] Aug, [facility] [address] [id number] [address] [place] [address], [place] [address] Aug, [facility] [address] [id number] [address] [place] [address], [place] [address] Aug, [facility] [address] [place] [id number] Aug, [facility] [address] [id number] [address] [place] [address], [place] [address] Aug, [facility] [address] [id number] [address] [place] [address], [place] [address] Aug, [facility] [address] [id number] [address] [place] [address], [place] [address] Aug, [facility] [address] [id number] [address] [place] [address], [place] [address] Aug, [facility] [address] [id number] [facility] [place] [address] Aug, [facility] [address] [id number] [address] [place] [address], [place] [address] Aug, [facility] [address] [id number] [facility] [place] [address] Aug, [facility] [address] [id number] [address] [place] [address], [place] [address] 08 Aug, 2014 [facility] [address] [id number] [address] [place] [address], [place] [address] Aug, [facility] [address] [id number] [address] [place] [address], [place] [address] Aug, [facility] [address] [id number] [address] [place] [address], [place] [address] Aug, [facility] [address] [id number] [address] [place] [address], [place] [address] Aug, [facility] [address] [id number] [address] [place] [address], [place] [address] Aug, [facility] [address] [id number] [address] [place] [address], [place] [address] Aug, [facility] [address] [id number] [address] [place] [address], [place] [address] Aug, [facility] [address] [id number] [address] [place] [address], [place] [address] Aug, [facility] [address] [id number] [address] [place] [address], [place] [address] Aug, [facility] [address] [id number] [address] [place] [address], [place] [address] Aug, [facility] [address] [id number] [address] [place] [address], [place] [address] Jul, [facility] [address] [id number] [address] [place] [address], [place] [address] Jul, [facility] [address] [id number] [address] [place] [address], [place] [address] Jul, [facility] [address] [id number] [address] [place] [address], [place] [address] Jul, [facility] [address] [id number] [address] [place] [address], [place] [address] Jul, [facility] [address] [id number] [address] [place] [address], [place] [address] Jul, [facility] [address] [id number] [address] [place] [address], [place] [address] Jul, [facility] [address] [id number] [address] [place] [address], [place] [address] Jul, [facility] [address] [id number] [address] [place] [address], [place] [address] Jul, [facility] [address] [id number] [address] [place] [address], [place] [address] Jul, [facility] [address] [id number] [address] [place] [address], [place] [address] Jun, [facility] [address] [id number] [address] [place] [address], [place] [address] Jun, [facility] [address] [id number] [address] [place] [address], [place] [address] Jun, [facility] [address] [id number] [address] [place] [address], [place] [address] Jun, [facility] [address] [id number] [address] [place] [address], [place] [address] Jun, [facility] [address] [id number] [address] [place] [address], [place] [address] Jun, [facility] [address] [id number] [address] [place] [address], [place] [address] Jun, [facility] [address] [id number] [address] [place] [address], [place] [address] Jun, [facility] [address] [id number] [address] [place] [address], [place] [address] Jun, [facility] [address] [id number] [address] [place] [address], [place] [address] Jun, [facility] [address] [id number] [address] [place] [address], [place] [address] 29 Sep, 2013 [facility] [address] [id number] [address] [place] [address], [place] [address] 29 Sep, 2013 [facility] [address] [id number] [address] [place] [address], [place] [address] 26 Sep, 2013 [facility] [address] [id number] [address] [place] [address], [place] [address] 26 Sep, 2013 [facility] [address] [id number] [address] [place] [address], [place] [address] 17 Sep, 2013 [facility] [address] [id number] [address] [place] [address], [place] [address] 17 Sep, 2013 [facility] [address] [id number] [address] [place] [address], [place] [address] 15 Sep, 2013 [facility] [address] [id number] [address] [place] [address], [place] [address] 15 Sep, 2013 [facility] [address] [id number] [address] [place] [address], [place] [address] 15 Sep, 2013 [facility] [address] [id number] [address] [place] [address], [place] [address] 15 Sep, 2013 [facility] [address] [id number] [address] [place] [address], [place] [address] 10 Sep, 2013 [facility] [address] [id number] [address] [place] [address], [place] [address] 10 Sep, 2013 [facility] [address] [id number] [address] [place] [address], [place] [address] 09 Sep, 2013 [facility] [address] [id number] [address] [place] [address], [place] [address] 09 Sep, 2013 [facility] [address] [id number] [address] [place] [address], [place] [address] 04 Sep, 2013 [facility] [address] [id number] [address] [place] [address], [place] [address] 04 Sep, 2013 [facility] [address] [id number] [facility] [place] [address] Apr, [facility] [address] [id number] [facility] [place] [address] Apr, [facility] [address] [id number] [facility] [place] [address] Apr, [facility] [address] [id number] [address] [place] [address], [place] [address] Apr, [facility] [address] [id number] [address] [place] [address], [place] [address] Apr, [facility] [address] [id number] [address] [place] [address], [place] [address] Apr, [facility] [address] [id number] [address] [place] [address], [place] [address] Apr, [facility] [address] [id number] [address] [place] [address], [place] [address] Apr, [facility] [address] [id number] [address] [place] [address], [place] [address] Apr, [facility] [address] [id number] [address] [place] [address], [place] [address] Apr, [facility] [address] [id number] [address] [place] [address], [place] [address] Apr, [facility] [address] [id number] [address] [place] [address], [place] [address] Apr, [facility] [address] [id number] [address] [place] [address], [place] [address] Apr, [facility] [address] [id number] [address] [place] [address], [place] [address] Apr, [facility] [address] [id number] [address] [place] [address], [place] [address] Apr, [facility] [address] [id number] [address] [place] [address], [place] [address] Mar, [facility] [address] [id number] [address] [place] [address], [place] [address] Mar, 2013 [facility] [address] [id number] [address] [place] [address], [place] [address] Mar, 2013 [facility] [address] [id number] [address] [place] [address], [place] [address] Mar, 2013 [facility] [address] [id number] [address] [place] [address], [place] [address] Mar, 2013 [facility] [address] [id number] [address] [place] [address], [place] [address] Mar, 2013 [facility] [address] [id number] [address] [place] [address], [place] [address] Mar, 2013 [facility] [address] [id number] [address] [place] [address], [place] [address] Mar, 2013 [facility] [address] [id number] [address] [place] [address], [place] [address] Mar, 2013 [facility] [address] [id number] [address] [place] [address], [place] [address] Mar, 2013 [facility] [address] [id number] [address] [place] [address], [place] [address] Mar, 2013 [facility] [address] [id number] [address] [place] [address], [place] [address] Mar, 2013 [facility] [address] [id number] [address] [place] [address], [place] [address] Mar, 2013 [facility] [address] [id number] [address] [place] [address], [place] [address] Mar, 2013 [facility] [address] [id number] [address] [place] [address], [place] [address] Mar, 2013 [facility] [address] [id number] [address] [place] [address], [place] [address] Mar, 2013 [facility] [address] [id number] [address] [place] [address], [place] [address] Mar, [facility] [address] [id number] [facility] [address] Mar, [facility] [address] [id number] [address] [place] [address], [place] [address] Feb, [facility] [address] [id number] [address] [place] [address], [place] [address] Feb, [facility] [address] [id number] [address] [place] [address], [place] [address] Feb, [facility] [address] [id number] [address] [place] [address], [place] [address] Feb, [facility] [address] [id number] [address] [place] [address], [place] [address] Feb, [facility] [address] [id number] [address] [place] [address], [place] [address] Feb, [facility] [address] [id number] [address] [place] [address], [place] [address] Feb, [facility] [address] [id number] [address] [place] [address], [place] [address] Feb, [facility] [address] [id number] [address] [place] [address], [place] [address] Feb, [facility] [address] [id number] [address] [place] [address], [place] [address] Feb, [facility] [address] [id number] [address] [place] [address], [place] [address] Feb, [facility] [address] [id number] [address] [place] [address], [place] [address] Feb, [facility] [address] [id number] [address] [place] [address], [place] [address] Feb, [facility] [address] [id number] [address] [place] [address], [place] [address] Feb, [facility] [address] [id number] [facility] [address] January, [facility] [address] [id number] [facility] [place] [address] January, [facility] [address] [id number] [facility] [place] [address] January, [facility] [address] [id number] [facility] [place] [address] January, [facility] [address] [id number] [facility] [place] [address] January, [facility] [address] [id number] [address] [place] [address], [place] [address] January, [facility] [address] [id number] [address] [place] [address], [place] [address] January, [facility] [address] [id number] [address] [place] [address], [place] [address] January, [facility] [address] [id number] [address] [place] [address], [place] [address] January, [facility] [address] [id number] [address] [place] [address], [place] [address] January, [facility] [address] [id number] [address] [place] [address], [place] [address] January, [facility] [address] [id number] [address] [place] [address], [place] [address] January, [facility] [address] [id number] [address] [place] [address], [place] [address] January, [facility] [address] [id number] [address] [place] [address], [place] [address] January, [facility] [address] [id number] [address] [place] [address], [place] [address] Dec, [facility] [address] [id number] [address] [place] [address], [place] [address] Dec, [facility] [address] [id number] [facility] [place] [address] Dec, [facility] [address] [id number] [facility] [place] [address] Dec, [facility] [address] [id number] [facility] [place] [address] Dec, [facility] [address] [id number] [address] [place] [address], [place] [address] Dec, [facility] [address] [id number] [facility] [place] [address] Dec, [facility] [address] [id number] [address] [place] [address], [place] [address] Dec, [facility] [address] [id number] [address] [place] [address], [place] [address] Dec, [facility] [address] [id number] [address] [place] [address], [place] [address] Dec, [facility] [address] [id number] [address] [place] [address], [place] [address] Nov, [facility] [address] [id number] [address] [place] [address], [place] [address] Nov, [facility] [address] [id number] [address] [place] [address], [place] [address] Nov, [facility] [address] [id number] [address] [place] [address], [place] [address] Nov, [facility] [address] [id number] [address] [place] [address], [place] [address] Nov, [facility] [address] [id number] [address] [place] [address], [place] [address] Nov, [facility] [address] [id number] [address] [place] [address], [place] [address] Nov, [facility] [address] [id number] [address] [place] [address], [place] [address] 05 Nov, 2013 [facility] [address] [id number] [address] [place] [address], [place] [address] Nov, [facility] [address] [id number] [address] [place] [address], [place] [address] Nov, [facility] [address] [id number] [address] [place] [address], [place] [address] Oct, [facility] [address] [id number] [address] [place] [address], [place] [address] Oct, [facility] [address] [id number] [address] [place] [address], [place] [address] Oct, [facility] [address] [id number] [address] [place] [address], [place] [address] Oct, [facility] [address] [id number] [address] [place] [address], [place] [address] Oct, [facility] [address] [id number] [address] [place] [address], [place] [address] Oct, [facility] [address] [id number] [address] [place] [address], [place] [address] Oct, [facility] [address] [id number] [address] [place] [address], [place] [address] Oct, [facility] [address] [id number] [address] [place] [address], [place] [address] Oct, [facility] [address] [id number] [address] [place] [address], [place] [address] Oct, [facility] [address] [id number] [address] [place] [address], [place] [address] Oct, [facility] [address] [id number] [address] [place] [address], [place] [address] Oct, [facility] [address] [id number] [address] [place] [address], [place] [address] Oct, [facility] [address] [id number] [address] [place] [address], [place] [address] Oct, [facility] [address] [id number] [address] [place] [address], [place] [address] Sep, [facility] [address] [id number] [address] [place] [address], [place] [address] Sep, [facility] [address] [id number] [address] [place] [address], [place] [address] Sep, [facility] [address] [id number] [address] [place] [address], [place] [address] Sep, [facility] [address] [id number] [address] [place] [address], [place] [address] Sep, [facility] [address] [id number] [address] [place] [address], [place] [address] Sep, [facility] [address] [id number] [address] [place] [address], [place] [address] Sep, [facility] [address] [id number] [address] [place] [address], [place] [address] Sep, [facility] [address] [id number] [address] [place] [address], [place] [address] Sep, [facility] [address] [id number] [address] [place] [address], [place] [address] Sep, [facility] [address] [id number] [address] [place] [address], [place] [address] Aug, [facility] [address] [id number] [address] [place] [address], [place] [address] Aug, [facility] [address] [id number] [address] [place] [address], [place] [address] Jul, [facility] [address] [id number] [address] [place] [address], [place] [address] Jul, [facility] [address] [id number] [address] [place] [address], [place] [address] 13 Jul, 2013 [facility] [address] [id number] [address] [place] [address], [place] [address] Jul, [facility] [address] [id number] [address] [place] [address], [place] [address] Jul, [facility] [address] [id number] [address] [place] [address], [place] [address] Jul, [facility] [address] [id number] [address] [place] [address], [place] [address] Jul, [facility] [address] [id number] [address] [place] [address], [place] [address] Jul, [facility] [address] [id number] [address] [place] [address], [place] [address] Jul, [facility] [address] [id number] [address] [place] [address], [place] [address] Jul, [facility] [address] [id number] [address] [place] [address], [place] [address] Jul, [facility] [address] [id number] [address] [place] [address], [place] [address] Jul, [facility] [address] [id number] [address] [place] [address], [place] [address] Jul, [facility] [address] [id number] [address] [place] [address], [place] [address] Jul, [facility] [address] [id number] [address] [place] [address], [place] [address] Jul, [facility] [address] [id number] [address] [place] [address], [place] [address] Jul, [facility] [address] [id number] [address] [place] [address], [place] [address] Jul, [facility] [address] [id number] [address] [place] [address], [place] [address] Jul, [facility] [address] [id number] [address] [place] [address], [place] [address] Jul, 2012 [facility] [address] [id number] [address] [place] [address], [place] [address] Jun, 2012 [facility] [address] [id number] [address] [place] [address], [place] [address] Jun, 2012 [facility] [address] [id number] [address] [place] [address], [place] [address] Jun, 2012 [facility] [address] [id number] [address] [place] [address], [place] [address] Jun, 2012 [facility] [address] [id number] [address] [place] [address], [place] [address] Jun, [facility] [address] [id number] [address] [place] [address], [place] [address] Jun, [facility] [address] [id number] [address] [place] [address], [place] [address] Jun, [facility] [address] [id number] [address] [place] [address], [place] [address] Jun, [facility] [address] [id number] [address] [place] [address] Jun, [facility] [address] [id number] [address] [place] [address], [place] [address] Jun, [facility] [address] [id number] [address] [place] [address] Jun, [facility] [address] [id number] [address] [place] [address], [place] [address] May, [facility] [address] [id number] [address] [place] [address], [place] [address] May, [facility] [address] [id number] [address] [place] [address], [place] [address] 19 May, 2013 [facility] [address] [id number] [address] [place] [address] [place] [address] 17 May, 2012 [facility] [address] [id number] [address] [place] [address], [place] [address] 11 May, 2012 [facility] [address] [id number] [address] [place] [address], [place] [address] 10 May, 2013 [facility] [address] [id number] [address] [place] [address], [place] [address] 09 May, 2013 [facility] [address] [id number] [address] [place] [address], [place] [address] 05 May, 2013 [facility] [address] [id number] [address] [place] [address], [place] [address] Apr, [facility] [address] [id number] [address] [place] [address], [place] [address] Apr, [facility] [address] [id number] [address] [place] [address], [place] [address] Apr, [facility] [facility] [address] [id number] [address] [place] [address], [place] [address] Apr, [facility] [address] [id number] [address] [place] [address], [place] [address] Apr, [facility] [address] [id number] [address] [place] [address], [place] [address] Mar, [facility] [address] [id number] [address] [place] [address], [place] [address] Mar, [facility] [address] [id number] [address] [place] [address], [place] [address] Mar, [facility] [address] [id number] [address] [place] [address], [place] [address] Mar, [facility] [address] [id number] [address] [place] [address], [place] [address] Mar, [facility] [address] [id number] [address] [place] [address], [place] [address] Mar, [facility] [address] [id number] [address] [place] [address], [place] [address] Mar, [facility] [address] [id number] [address] [place] [address], [place] [address] Mar, [facility] [address] [id number] [address] [place] [address], [place] [address] Feb, [facility] [address] [id number] [address] [place] [address], [place] [address] Feb, [facility] [address] [id number] [address] [place] [address], [place] [address] January, [facility] [address] [id number] [address] [place] [address], [place] [address] January, [facility] [address] [id number] [address] [place] [address], [place] [address] Dec, [facility] [address] [id number] [address] [place] [address], [place] [address] Dec, [facility] [address] [id number] [address] [place] [address], [place] [address] Nov, [facility] [address] [id number] [address] [place] [address], [place] [address] Nov, [facility] [address] [id number] [address] [place] [address], [place] [address] Nov, [facility] [address] [id number] [address] [place] [address], [place] [address] Nov, [facility] [address] [id number] [address] [place] [address], [place] [address] Oct, [facility] [address] [id number] [address] [place] [address], [place] [address] Oct, [facility] [address] [id number] [address] [place] [address], [place] [address] Oct, [facility] [address] [id number] [address] [place] [address], [place] [address] 26 Oct, 2012 [facility] [address] [id number] [address] [place] [address], [place] [address] 16 Oct, 2012 [facility] [address] [id number] [address] [place] [address], [place] [address] 14 Oct, 2012 [facility] [address] [id number] [address] [place] [address], [place] [address] 08 Oct, 2012 [facility] [address] [id number] [address] [place] [address], [place] [address] 07 Oct, 2012 [facility] [address] [id number] [address] [place] [address], [place] [address] 03 Oct, 2012 [facility] [address] [id number] [address] [place] [address], [place] [address] 30 Sep, 2012 [facility] [address] [id number] [address] [place] [address], [place] [address] Sep, [facility] [address] [id number] [address] [place] [address], [place] [address] Sep, [facility] [address] [id number] [address] [place] [address], [place] [address] Sep, [facility] [address] [id number] [address] [place] [address], [place] [address] Sep, [facility] [address] [id number] [address] [place] [address], [place] [address] Sep, [facility] [address] [id number] [address] [place] [address], [place] [address] Sep, [facility] [address] [id number] [address] [place] [address], [place] [address] 08 Sep, 2012 [facility] [address] [id number] [address] [place] [address], [place] [address] Aug, [facility] [address] [id number] [address] [place] [address], [place] [address] Aug, [facility] [address] [id number] [address] [place] [address], [place] [address] Aug, [facility] [address] [id number] [address] [place] [address], [place] [address] Aug, [facility] [address] [id number] [address] [place] [address], [place] [address] Aug, [facility] [address] [id number] [address] [place] [address], [place] [address] Aug, [facility] [address] [id number] [address] [place] [address], [place] [address] Aug, [facility] [address] [id number] [address] [place] [address], [place] [address] Aug, [facility] [address] [id number] [address] [place] [address], [place] [address] Jul, [facility] [address] [id number] [address] [place] [address], [place] [address] Jul, [facility] [address] [id number] [address] [place] [address], [place] [address] Jul, [facility] [address] [id number] [address] [place] [address], [place] [address] Jul, [facility] [address] [id number] [address] [place] [address], [place] [address] Jul, [facility] [address] [id number] [address] [place] [address], [place] [address] Jul, [facility] [address] [id number] [address] [place] [address], [place] [address] Jun, [facility] [address] [id number] [address] [place] [address], [place] [address] Jun, [facility] [address] [id number] [address] [place] [address], [place] [address] Jun, [facility] [address] [id number] [address] [place] [address], [place] [address] Jun, [facility] [address] [id number] [address] [place] [address], [place] [address] Jun, [facility] [address] [id number] [address] [place] [address], [place] [address] Jun, [facility] [address] [id number] [address] [place] [address], [place] [address] Jun, [facility] [address] [id number] [address] [place] [address], [place] [address] Jun, [facility] [address] [id number] [address] [place] [address], [place] [address] Jun, [facility] [address] [id number] [address] [place] [address], [place] [address] 26 May, 2012 [facility] [address] [id number] [address] [place] [address], [place] [address] 24 May, 2012 [facility] [address] [id number] [address] [place] [address], [place] [address] 18 May, 2012 [facility] [address] [id number] [address] [place] [address], [place] [address] 30 Apr, 2012 [facility] [address] [id number] [address] [place] [address], [place] [address] Apr, [facility] [address] [id number] [address] [place] [address], [place] [address] Apr, [facility] [address] [id number] [address] [place] [address], [place] [address] 14 Apr, 2012 [facility] [address] [id number] [address] [place] [address], [place] [address] Apr, [facility] [address] [id number] [address] [place] [address], [place] [address] Apr, [facility] [address] [id number] [address] [place] [address], [place] [address] Mar, [facility] [address] [id number] [address] [place] [address], [place] [address] Mar, [facility] [address] [id number] [address] [place] [address], [place] [address] Mar, [facility] [address] [id number] [address] [place] [address], [place] [address] Mar, [facility] [address] [id number] [address] [place] [address], [place] [address] Feb, [facility] [address] [id number] [address] [place] [address], [place] [address] Feb, [facility] [address] [id number] [address] [place] [address], [place] [address] Feb, [facility] [address] [id number] [address] [place] [address], [place] [address] Feb, [facility] [address] [id number] [address] [place] [address], [place] [address] Feb, [facility] [address] [id number] [address] [place] [address], [place] [address] January, [facility] [address] [id number] [address] [place] [address], [place] [address] January, [facility] [address] [id number] [address] [place] [address], [place] [address] January, [facility] [address] [id number] [address] [place] [address], [place] [address] January, [facility] [address] [id number] [address] [place] [address], [place] [address] January, [facility] [address] [id number] [address] [place] [address], [place] [address] January, [facility] [address] [id number] [address] [place] [address], [place] [address] Dec, [facility] [address] [id number] [address] [place] [address], [place] [address] Dec, [facility] [address] [id number] [address] [place] [address], [place] [address] 17 Dec, 2011 [facility] [address] [id number] [address] [place] [address], [place] [address] 09 Dec, 2011 [facility] [address] [id number] [address] [place] [address], [place] [address] 06 Dec, 2011 [facility] [address] [id number] [address] [place] [address], [place] [address] 27 Nov, 2011 [facility] [address] [id number] [address] [place] [address], [place] [address] 14 Nov, 2011 [facility] [address] [id number] [address] [place] [address], [place] [address] 12 Nov, 2011 [facility] [address] [id number] [address] [place] [address], [place] [address] 07 Nov, 2011 [facility] [address] [id number] [address] [place] [address], [place] [address] 29 Oct, 2011 [facility] [address] [id number] [address] [place] [address], [place] [address] 28 Oct, 2011 [facility] [address] [id number] [address] [place] [address], [place] [address] 24 Oct, 2011 [facility] [address] [id number] [address] [place] [address], [place] [address] 13 Oct, 2011 [facility] [address] [id number] [address] [place] [address], [place] [address] 08 Oct, 2011 [facility] [address] [id number] [address] [place] [address], [place] [address] Sep, [facility] [address] [id number] [address] [place] [address], [place] [address] 30 Sep, 2011 [facility] [address] [id number] [address] [place] [address], [place] [address] Sep, [facility] [address] [id number] [address] [place] [address], [place] [address] 10 Sep, 2011 [facility] [address] [id number] [address] [place] [address], [place] [address] Sep, [facility] [address] [id number] [address] [place] [address], [place] [address] Sep, [facility] [address] [id number] [address] [place] [address], [place] [address] Aug, [facility] [address] [id number] [address] [place] [address], [place] [address] Aug, [facility] [address] [id number] [address] [place] [address], [place] [address] Aug, [facility] [address] [id number] [address] [place] [address], [place] [address] Jul, [facility] [address] [id number] [address] [place] [address], [place] [address] Jul, [facility] [address] [id number] [address] [place] [address], [place] [address] Jul, [facility] [address] [id number] [address] [place] [address], [place] [address] Jul, [facility] [address] [id number] [address] [place] [address], [place] [address] Jun, [facility] [address] [id number] [address] [place] [address], [place] [address] Jun, [facility] [address] [id number] [address] [place] [address], [place] [address] 18 Jun, 2011 [facility] [address] [id number] [address] [place] [address], [place] [address] Jun, [facility] [address] [id number] [address] [place] [address], [place] [address] Jun, [facility] [address] [id number] [address] [place] [address] Jun, [facility] [address] [id number] [address] [place] [address], [place] [address] 11 Mar, 2011 [facility] [address] [id number] [address] [place] [address], [place] [address] 18 Dec, 2010 [facility] [address] [id number] [address] [place] [address], [place] [address] 11 Dec, 2010 [facility] [address] [id number] [address] [place] [address], [place] [address] 18 Nov, 2010 [facility] [address] [id number] [address] [place] [address], [place] [address] 16 Nov, 2010 [facility] [address] [id number] [address] [place] [address], [place] [address] 10 Sep, 2010 [facility] [address] [id number] [address] [place] [address], [place] [address] 31 Aug, 2010 [facility] [address] [id number] [address] [place] [address], [place] [address] 29 Aug, 2010 [facility] [address] [id number] [address] [place] [address], [place] [address] 29 Aug, 2010 [facility] [address] [id number] [address] [place] [address], [place] [address] 29 Aug, 2010 [facility] [address] [id number] [address] [place] [address], [place] [address] 27 Aug, 2010 [facility] [address] [id number] [address] [place] [address], [place] [address] 14 Aug, 2010 [facility] [address] [id number] [address] [place] [address], [place] [address] 08 Aug, 2010 [facility] [address] [id number] [address] [place] [address], [place] [address] 08 Aug, 2010 [facility] [address] [id number] [address] [place] [address], [place] [address] 07 Aug, 2010 [facility] [address] [id number] [address] [address] Aug, [facility] [address] [id number] [address] [place] [address], [place] [address] Aug, [facility] [address] [id number] [address] [place] [address], [place] [address] Aug, [facility] [address] [id number] [address] [place] [address] Jul, [facility] [address] [id number] [address] [place] [address] Jul, [facility] [address] [id number] [address] [place] [address], [place] [address] Jul, [facility] [address] [id number] [address] [place] [address] Jul, [facility] [address] [id number] [address] [place] [address], [place] [address] Jul, [facility] [address] [id number] [address] [place] [address] Jul, [facility] [address] [id number] [address] [place] [address] 24 Jun, 2010 [facility] [address] [id number] [address] [place] [address] Jun, [facility] [address] [id number] [address] [place] [address] Jun, [facility] [address] [id number] [address] [place] [address] Jun, [facility] [address] [id number] [address] [place] [address], [place] [address] 16 Apr, 2010 [facility] [address] [id number] [address] [place] [address] Mar, [facility] [address] [id number] [address] [place] [address] Feb, [facility] [address] [id number] [address] [place] [address], [place] [address] 11 Jan, 2010 [facility] [address] [id number] [address] [place] [address], [place] [address] 15 Dec, 2009 [facility] [address] [id number] [address] [place] [address], [place] [address] Nov, [facility] [address] [id number] [address] [place] [address], [place] [address] 31 Aug, 2009 [facility] [address] [id number] [address] [place] [address], [place] [address] Aug, [facility] [address] [id number] [address] [place] [address], [place] [address] Aug, [facility] [address] [id number] [address] [place] [address], [place] [address] Jul, [facility] [address] [id number] [address] [place] [address], [place] [address] Jul, [facility] [address] [id number] [address] [place] [address], [place] [address] Jul, [facility] [address] [id number] [address] [place] [address], [place] [phone] 30 Jun, 2009 [facility] [address] [id number] [address] [place] [phone] 29 Jun, 2009 [facility] [address] [id number] [address] [place] [address], [place] [address] Jun, [facility] [address] [id number] [address] [place] [phone] Jun, [facility] [address] [id number] [address] [place] [phone] Jun, [facility] [address] [id number] [address] [place] [phone] Jun, [facility] [address] [id number] [address] [place] [id number] Apr, [facility] [address] [facility] [id number] [address] [place] [phone] Apr, [facility] [address] [facility] [id number] [address] [place] [id number] Feb, [facility] [address] [facility] [id number] [address] [place] [phone] January, [facility] [address] [facility] [id number] [address] [place] [phone] Dec, IMMUNIZATIONS No Known Immunizations SOCIAL HISTORY Never Assessed REASON FOR VISIT PLAN OF CARE VITAL SIGNS Blood pressure systolic 150 mmHg 2014-11-20 Blood pressure diastolic 94 mmHg 2014-11-20 MEDICATIONS Unknown Medications RESULTS No Results PROCEDURES Procedure Date Ordered Result Body Site DRAIN/INJECT, JOINT/BURSA Nov 20, 2014 INSTRUCTIONS MEDICATIONS ADMINISTERED No Known [...] 2009 Surgical History colonoscopy 2009 ([facility]), 2013 ([facility] ) Surgical History heart cath: CAD w/ [...] History inability to urinate 09/16/15 Hospitalization History [facility] 1999' Hospitalization History hyperkalemia 10/2017 Hospitalization History fluid in lung
--- OUTSIDE RECORDS SUMMARY | 2020-03-01 18:24 | XMS REPORT ---
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 Role Phone NOEMI WASHBURN Unavailable PROBLEMS Type Condition ICD9-CM Code XTQ58-DR Code Onset Dates Condition S tatus SNOMED Code Problem Cough R05 Active 22871422 Problem Benign prostatic hyperplasia with lower urinary tract symptoms, unspecified morphology N40.1 Active 75468 6007 Problem Eustachian tube dysfunction, unspecified laterality H69.80 Active 83351144 Problem Chronic pain G89.29 Active 9720447 1 Problem DM neuro manif type II E11.49 Active 83509715 Problem Diabetes E11.9 Active 14756672 Problem Leukocytosis D72.829 Active 9896437 06 Problem Falling R29.6 Active 412673852 Problem Pressure ulcer of other site, stage 3 L89.893 Active 424164758 Problem 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 Active 300496105 Problem Eye exam abnormal R93.8 Active 16 0319568 Problem Dysuria R30.0 Active 56971957 Problem Hypokalemia E87.6 Active 94815967 Problem Morbid obesity E66.01 Active 32108 6002 Problem Anxiety F41.9 Active 18396735 Problem Diabetic polyneuropathy associated with type 2 d iabetes mellitus E11.42 Active 64429128 Problem Essential hypertension I10 Active 06223768 Problem Bilateral primary osteoarthritis of knee M17.0 Active 386261763 Problem Polyneuropathy associated with underlying disease G63 Active 441075233 Problem Anemia of chronic illness D63.8 Acti ve 113903481 Problem Lymphocytosis D72.820 Active 591265 09 Problem Retinal edema H35.81 Active 175360 6 Problem Chronic lymphocytic leukemia C91.10 A ctive 86741784 Problem Bipolar disorder, in partial remission, most rec ent episode depressed F31.75 Active 89805729 Problem Pure hypercholesterolemia E78.00 Acti ve 086036315 Problem Primary osteoarthritis of right knee M17.11 Active 594266291462969 Problem Bipolar disorder F31.9 Active 137 54509 Problem Bipolar I disorder, most recent episode (or curr ent) mixed, moderate F31.62 Active 93573752 Problem Chronic diastolic (congestive) heart failure I50.3 2 Active 956744884 Problem Reactive airway disease J45.909 Active 350989844094 Problem Insomnia, unspecified type G47.00 Act sharon 155175106 Problem Other chronic pain G89.29 Active 8 6050768 Problem Other iron deficiency anemia D50.8 A ctive 71599048 Problem Mild cognitive impairment G31.84 Acti ve 038664764 Problem Skin cancer C44.90 Active 81719645 7 ALLERGIES No Information ENCOUNTERS Encounter Location Date Diagnosis [place] [address] [facility] [id number] [address] [place] [id number] Mar, [place] [address] [place] [id number] [address] [place] [address] Mar, [place] [address] [facility] [id number] [address] [place] [address] Mar, Bipolar disorder F31.9 and C hronic pain G89.29 [place] [address] [facility] [id number] [address] [place] [id number] 24 Feb, 2019 Bipolar disorder F31.9 [facility] [address] [facility] [id number] [address] [place] [address] 17 Feb, 2019 Cellulitis of right upper ex tremity L03.113 and Skin abrasion T14.8XXA [facility] [address] [facility] [id number] [address] [place] [id number] 17 Feb, 2019 Bipolar disorder, in partial remission, most recent episode depressed F31.75 and Mild cognitive impairment G31.84 [place] [address] [facility] [id number] [address] [place] [id number] 13 Feb, 2019 Chronic pain G89.29 [place] [address] [facility] [id number] [address] [place] [address] 03 Feb, 2019 Bipolar disorder, in partial remission, most recent episode depressed F31.75 and Mild cognitive impairment G31.84 [facility] [address] [id number] [address] [place] [id number] January, Bipolar disorder, in partial remission, most recent episode depressed F31.75 and Mild cognitive impairment G31.84 [facility] [address] [id number] [address] [place] [address] January, Chronic pain G89.29 and Bipo lar disorder F31.9 [facility] [address] [id number] [address] [place] [id number] January, Bipolar disorder, in partial remission, most recent episode depressed F31.75 and Mild cognitive impairment G31.84 [facility] [address] [id number] [address] [place] [address] Dec, [facility] [address] [id number] [address] [place] [address] Dec, Chronic pain G89.29 and Bipo lar disorder F31.9 [facility] [address] [id number] [address] [place] [address] Dec, Edema of both lower extremit ies R60.0 [facility] [address] [id number] [address] [place] [id number] Dec, Bipolar disorder F31.9 [facility] [address] [id number] [address] [place] [id number] Dec, Bipolar disorder, in partial remission, most recent episode depressed F31.75 and Mild cognitive impairment G31.84 [facility] [address] [id number] [address] [place] [address] Nov, [facility] [address] [id number] [address] [place] [address] Nov, Chronic pain G89.29 [facility] [address] [id number] [address] [place] [address] Nov, Bipolar disorder, in partial remission, most recent episode depressed F31.75 and Mild cognitive impairment G31.84 [place] [address] [place] [id number] [address] [place] [address] Nov, Bipolar disorder F31.9 [place] [address] [place] [id number] [address] [place] [id number] 04 Nov, 2018 [facility] ; [...] unspecified morphology N40.1 and Essential hypertension I10 [place] [address] [address] [place] [id number] [address] [place] [address] Oct, Chronic pain G89.29 [place] [id number] [place] [address] 18 Oct, 2018 Diabetes E11.9 [place] [address] [place] [id number] [address] [place] [address] Oct, Bipolar I disorder, most rec ent episode (or current) mixed, moderate F31.62 and Mild cognitive impairment G31.84 [place] [id number] [place] [address] Oct, Bipolar I disorder, most rec ent episode (or current) mixed, moderate F31.62 and Mild cognitive impairment G31.84 [place] [address] [place] [id number] [address] [place] [address] Sep, Bipolar I disorder, most rec ent episode (or current) mixed, moderate F31.62 and Mild cognitive impairment G31.84 [place] [address] [address] [place] [id number] [address] [place] [address] Sep, [facility] [address] [id number] [address] [place] [address] Sep, Diabetes E11.9 ; Hypoxia R09 .02 ; Hyperglycemia R73.9 ; Therapeutic drug monitoring Z51.81 ; BMI 50.0-59.9, adult Z68.43 and Skin cancer C44.90 [place] [address] [facility] [id number] [address] [place] [address] Sep, Chronic pain G89.29 [place] [address] [id number] [address] [place] [id number] Sep, Bipolar I disorder, most rec ent episode (or current) mixed, moderate F31.62 [place] [address] [facility] [id number] [address] [place] [phone] Sep, [place] [address] [facility] [id number] [address] [place] [phone] Sep, [place] [address] [facility] [id number] [address] [place] [address] Aug, Chronic pain G89.29 [place] [address] [id number] [address] [place] [address] Aug, Bipolar I disorder, most rec ent episode (or current) mixed, moderate F31.62 [place] [address] [facility] [id number] [address] [place] [address] Aug, Bipolar I disorder, most rec ent episode (or current) mixed, moderate F31.62 and Mild cognitive impairment G31.84 [place] [address] [id number] [address] [place] [address] Jul, [place] [address] [facility] [id number] [address] [place] [id number] Jul, Chronic pain G89.29 [facility] [address] [id number] [address] [place] [id number] Jul, Bipolar I disorder, most rec ent episode (or current) mixed, moderate F31.62 and Mild cognitive impairment G31.84 [facility] [address] [facility] [id number] [address] [place] [id number] Jul, Bipolar I disorder, most rec ent episode (or current) mixed, moderate F31.62 and MCI (mild cognitive impairment) G31.84 [facility] [address] [facility] [id number] [address] [place] [phone] Jul, [facility] [address] [facility] [id number] [address] [place] [phone] Jul, [place] [address] [facility] [id number] [address] [place] [address] Jul, Bipolar I disorder, most rec ent episode (or current) mixed, moderate F31.62 [place] [address] [facility] [id number] [address] [place] [address] Jul, Chronic pain G89.29 [place] [address] [facility] [id number] [address] [place] [address] Jun, Bipolar I disorder, most rec ent episode (or current) mixed, moderate F31.62 [place] [address] [place] [id number] [address] [place] [address] Jun, Pre-procedure lab exam Z01.8 12 [place] [address] [place] [id number] [address] [place] [address] Jun, [facility] [address] [id number] [place] [id number] Jun, [place] [address] [facility] [id number] [address] [place] [phone] Jun, [place] [address] [place] [id number] [address] [place] [address] Jun, Forgetfulness R68.89 ; Pre-s yncope R55 ; Localized edema R60.0 ; Other iron deficiency anemia D50.8 and BMI 50.0-59.9, adult Z68.43 [place] [address] [place] [id number] [address] [place] [address] 05 Jun, 2018 Chronic pain G89.29 [facility] [address] [place] [id number] [address] [place] [address] 05 Jun, 2018 Chronic pain G89.29 [facility] [address] [place] [id number] [address] [place] [id number] Jun, Bipolar I disorder, most rec ent episode (or current) mixed, moderate F31.62 [facility] [address] [place] [id number] [address] [place] [address] May, Chronic pain G89.29 [facility] [address] [address] Apr, [place] [address] [place] [id number] [place] [address] Apr, Chronic pain G89.29 [place] [address] [address] Apr, Primary osteoarthritis of ri t knee M17.11 [place] [address] [id number] Mar, [place] [address] [address] Mar, BMI 50.0-59.9, adult Z68.43 and Bipolar disorder, in partial remission, most recent episode depressed F31.75 [place] [address] [place] [id number] [address] [place] [address] Mar, Diabetes E11.9 ; Pure hyperc holesterolemia E78.00 ; Essential hypertension I10 ; Nausea with vomiting, unspecified R11.2 and Headache, unspecified headache type R51 [place] [address] [place] [id number] [address] [place] [address] Mar, Bipolar I disorder, most rec ent episode (or current) mixed, moderate F31.62 [place] [address] [id number] Mar, Bipolar I disorder, most rec ent episode (or current) mixed, moderate F31.62 [facility] [address] [facility] [id number] [address] [place] [id number] Mar, Chronic pain G89.29 [facility] [address] [facility] [id number] [address] [place] [address] Mar, Bipolar I disorder, most rec ent episode (or current) mixed, moderate F31.62 [place] [address] [facility] [id number] [address] [place] [id number] Feb, Bipolar I disorder, most rec ent episode (or current) mixed, moderate F31.62 [place] [address] [place] [id number] [address] [place] [address] Feb, Chronic pain G89.29 [place] [address] [place] [id number] [address] [place] [id number] Feb, Decubitus ulcer of right josselin t, stage 3 L89.893 and BMI 50.0-59.9, adult Z68.43 [place] [address] [facility] [id number] [address] [place] [address] Feb, Bipolar I disorder, most rec ent episode (or current) mixed, moderate F31.62 [place] [address] [facility] [id number] [address] [place] [address] Feb, [facility] [address] [facility] [id number] [address] [place] [phone] January, [facility] [address] [facility] [id number] [address] [place] [address] January, Chronic pain G89.29 [facility] [address] [facility] [id number] [address] [place] [address] January, Bipolar I disorder, most rec ent episode (or current) mixed, moderate F31.62 [place] [address] [facility] [id number] [address] [place] [address] January, Bipolar I disorder, most rec ent episode (or current) mixed, moderate F31.62 [place] [address] [facility] [id number] [address] [place] [address] Dec, Bipolar I disorder, most rec ent episode (or current) mixed, moderate F31.62 and BMI 50.0-59.9, adult Z68.43 [place] [address] [place] [id number] [address] [place] [address] Dec, Bipolar I disorder, most rec ent episode (or current) mixed, moderate F31.62 [place] [address] [facility] [id number] [address] [place] [address] Dec, Chronic pain G89.29 [place] [address] 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 [id number] [address] [place] [address] Nov, Chronic pain G89.29 [place] [address] [place] [id number] [address] [place] [address] Nov, Bipolar I disorder, most rec ent episode (or current) mixed, moderate F31.62 [place] [address] [facility] [id number] [address] [place] [address] Nov, Hypokalemia E87.6 [place] [address] [place] [id number] [address] [place] [address] Nov, Bipolar I disorder, most rec ent episode (or current) mixed, moderate F31.62 [place] [address] [place] [id number] [place] [address] Oct, Chronic pain G89.29 [place] [address] [address] Oct, BMI 50.0-59.9, adult Z68.43 and Bipolar I disorder, most recent episode (or current) mixed, moderate F31.62 [place] [address] [address] Oct, Bipolar I disorder, most rec ent episode (or current) mixed, moderate F31.62 [place] [address] [address] Oct, [place] [address] [address] Oct, Hypokalemia E87.6 [place] [address] [address] Oct, DM neuro manif type II E11.4 9 [place] [address] [address] Oct, Bipolar I disorder, most rec ent episode (or current) mixed, moderate F31.62 [place] [address] [place] [id number] [address] [place] [address] Oct, Bipolar I disorder, most rec ent episode (or current) mixed, moderate F31.62 [place] [address] [place] [id number] [address] [place] [address] 14 Oct, 2017 Hyperkalemia E87.5 ; Falling R29.6 ; BMI 50.0-59.9, adult Z68.43 and Acute left ankle pain M25.572 [place] [address] [place] [id number] [address] [place] [address] 08 Oct, 2017 DM neuro manif type II E11.4 9 [place] [id number] [place] [address] Oct, [place] [address] [place] [id number] [place] [address] Sep, Chronic pain G89.29 [place] [address] [address] Sep, [place] [address] [address] Sep, Bilateral primary osteoarthr itis of knee M17.0 [place] [address] [address] Sep, Generalized edema R60.1 [place] [address] [address] 16 Sep, 2017 Bipolar I disorder, most rec ent episode (or current) mixed, moderate F31.62 [place] [address] [address] 15 Sep, 2017 Hypoxia R09.02 ; Other hyper volemia E87.79 ; Diabetes E11.9 ; Retinal edema H35.81 ; Hypokalemia E87.6 ; 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 [id number] [address] [place] [address] Aug, Generalized edema R60.1 [facility] [address] [facility] [id number] [address] [place] [address] Aug, [facility] [address] [facility] [id number] [address] [place] [address] Aug, [facility] [address] [facility] [id number] [address] [place] [address] 14 Aug, 2017 Bipolar I disorder, most rec ent episode (or current) mixed, moderate F31.62 [place] [address] [facility] [id number] [address] [place] [address] Aug, Bipolar I disorder, most rec ent episode (or current) mixed, moderate F31.62 [place] [address] [facility] [id number] [address] [place] [address] 04 Aug, 2017 Chronic pain G89.29 [facility] [address] [facility] [id number] [address] [place] [id number] 30 Jul, 2017 Bipolar I disorder, most rec ent episode (or current) mixed, moderate F31.62 [facility] [address] [facility] [id number] [address] [place] [address] Jul, Bipolar I disorder, most rec ent episode (or current) mixed, moderate F31.62 and BMI 60.0-69.9, adult Z68.44 [facility] [address] [facility] [id number] [address] [place] [id number] 16 Jul, 2017 Bipolar I disorder, most rec ent episode (or current) mixed, moderate F31.62 [place] [address] [facility] [id number] [address] [place] [id number] 06 Jul, 2017 Chronic pain G89.29 [facility] [address] [facility] [id number] [address] [place] [id number] 02 Jul, 2017 Bipolar I disorder, most rec ent episode (or current) mixed, moderate F31.62 [facility] [address] [id number] [address] [place] [phone] 18 Jun, 2017 Polyneuropathy associated wi th underlying disease G63 and Diabetes E11.9 [facility] [address] [id number] [address] [place] [id number] 16 Jun, 2017 Bipolar I disorder, most rec ent episode (or current) mixed, moderate F31.62 [facility] [address] [id number] [address] [place] [address] Jun, Chronic pain G89.29 [facility] [address] [id number] [address] [place] [id number] May, Bipolar I disorder, most rec ent episode (or current) mixed, moderate F31.62 [facility] [address] [facility] [id number] [address] [place] [id number] 21 May, 2017 Bipolar I disorder, most rec ent episode (or current) mixed, moderate F31.62 [facility] [address] [id number] [address] [place] [phone] 20 May, 2017 Diabetic polyneuropathy asso ciated with type 2 diabetes mellitus E11.42 [facility] [address] [id number] [address] [place] [phone] 18 May, 2017 Bipolar I disorder, most rec ent episode (or current) mixed, moderate F31.62 [facility] [address] [facility] [id number] [address] [place] [phone] 13 May, 2017 Bipolar I disorder, most rec ent episode (or current) mixed, moderate F31.62 [facility] [address] [id number] [address] [place] [phone] May, Chronic pain G89.29 [facility] [address] [facility] [id number] [address] [place] [phone] Apr, Bipolar I disorder, most rec ent episode (or current) mixed, moderate F31.62 [facility] [address] [facility] [id number] [address] [place] [id number] Apr, [facility] [address] [id number] [address] [place] [id number] Apr, Chronic pain G89.29 and DM n euro manif type II E11.49 [facility] [address] [facility] [id number] [address] [place] [id number] Apr, [facility] [address] [facility] [id number] [address] [place] [phone] Apr, Bipolar I disorder, most rec ent episode (or current) mixed, moderate F31.62 [facility] [address] [facility] [id number] [address] [place] [place] [phone] Apr, Chronic pain G89.29 [facility] [address] [facility] [id number] [address] [place] [id number] Apr, Iliotibial band syndrome, le ft M76.32 [facility] [address] [facility] [id number] [address] [place] [phone] Apr, Bipolar I disorder, most rec ent episode (or current) mixed, moderate F31.62 [facility] [address] [facility] [id number] [address] [place] [address] Mar, Bipolar I disorder, most rec ent episode (or current) mixed, moderate F31.62 [facility] [address] [facility] [id number] [address] [place] [id number] Mar, Bipolar I disorder, most rec ent episode (or current) mixed, moderate F31.62 [facility] [address] [facility] [id number] [address] [place] [phone] Mar, [facility] [address] [facility] [id number] [address] [place] [id number] Mar, Bipolar I disorder, most rec ent episode (or current) mixed, moderate F31.62 [facility] [address] [facility] [id number] [address] [place] [phone] Mar, Chronic pain G89.29 [facility] [address] [id number] [address] [place] [id number] Mar, Bipolar I disorder, most rec ent episode (or current) mixed, moderate F31.62 [facility] [address] [id number] [address] [place] [id number] Mar, Bipolar I disorder, most rec ent episode (or current) mixed, moderate F31.62 [facility] [address] [id number] [address] [place] [phone] Mar, Acute pain of left knee M25. 562 ; Left hip pain M25.552 ; Generalized edema R60.1 and Tongue swelling R22.0 [facility] [address] [id number] [address] [place] [id number] Mar, [facility] [address] [id number] [address] [place] [id number] Feb, Chronic pain G89.29 [facility] [address] [id number] [address] [place] [id number] Feb, Diabetes E11.9 [facility] [address] [id number] [address] [place] [id number] January, Chronic pain G89.29 [facility] [address] [facility] [id number] [address] [place] [id number] January, [facility] [address] [id number] [address] [place] [phone] January, Bipolar I disorder, most rec ent episode (or current) mixed, moderate F31.62 [facility] [address] [id number] [address] [place] [phone] Dec, Bipolar I disorder, most rec ent episode (or current) mixed, moderate F31.62 [facility] [address] [facility] [id number] [address] [place] [id number] Dec, Chronic pain G89.29 [facility] [address] [id number] [address] [place] [id number] Dec, Bipolar I disorder, most rec ent episode (or current) mixed, moderate F31.62 [facility] [address] [place] [id number] [address] [place] [id number] Dec, Diabetes E11.9 ; Essential h ypertension I10 ; Chronic pain G89.29 and Morbid obesity E66.01 [facility] [address] [place] [id number] [address] [place] [id number] Dec, [facility] [address] [facility] [id number] [address] [place] [id number] Dec, Bipolar I disorder, most rec ent episode (or current) mixed, moderate F31.62 [facility] [address] [place] [id number] [address] [place] [phone] Dec, Bipolar I disorder, most rec ent episode (or current) mixed, moderate F31.62 [facility] [address] [place] [id number] [address] [place] [id number] Nov, Chronic pain G89.29 [facility] [address] [place] [id number] [address] [place] [phone] Nov, Bipolar I disorder, most rec ent episode (or current) mixed, moderate F31.62 [facility] [address] [place] [id number] [address] [place] [phone] Nov, [facility] [address] [facility] [id number] [address] [place] [id number] Nov, Bipolar I disorder, most rec ent episode (or current) mixed, moderate F31.62 [facility] [address] [place] [id number] [address] [place] [phone] Nov, Bipolar I disorder, most rec ent episode (or current) mixed, moderate F31.62 [facility] [address] [place] [id number] [address] [place] [phone] Nov, [facility] [address] [place] [id number] [address] [place] [id number] Nov, [facility] [address] [facility] [id number] [address] [place] [phone] Nov, [facility] [address] [facility] [id number] [address] [place] [phone] Oct, Chronic pain G89.29 [facility] [address] [facility] [id number] [address] [place] [id number] Oct, Bipolar I disorder, most rec ent episode (or current) mixed, moderate F31.62 [facility] [address] [facility] [id number] [address] [place] [phone] Oct, [facility] [address] 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 [id number] [address] [place] [id number] Oct, [facility] [address] [facility] [id number] [address] [place] [id number] Oct, Diabetes E11.9 [facility] [address] [facility] [id number] [address] [place] [id number] Oct, Bipolar I disorder, most rec ent episode (or current) mixed, moderate F31.62 [facility] [address] [facility] [id number] [address] [place] [phone] Sep, Chronic pain G89.29 [facility] [address] [facility] [id number] [address] [place] [id number] Sep, Chronic pain G89.29 [facility] [address] [facility] [id number] [address] [place] [id number] Aug, Chronic pain G89.29 [facility] [address] [facility] [id number] [address] [place] [id number] Jul, [facility] [address] [facility] [id number] [address] [place] [id number] Jul, Diabetes E11.9 [facility] [address] [facility] [id number] [address] [place] [id number] Jul, Chronic pain G89.29 [facility] [address] [facility] [id number] [address] [place] [phone] Jul, Bipolar I disorder, most rec ent episode (or current) mixed, moderate F31.62 [facility] [address] [facility] [id number] [address] [place] [id number] Jun, Bipolar I disorder, most rec ent episode (or current) mixed, moderate F31.62 [place] [address] [facility] [id number] [address] [place] [phone] Jun, [facility] [address] [facility] [id number] [address] [place] [address] Jun, Bipolar I disorder, most rec ent episode (or current) mixed, moderate F31.62 [place] [id number] [facility] [id number] [address] [place] [id number] 30 May, 2016 Insomnia, unspecified type G 47.00 [facility] [address] [facility] [id number] [address] [place] [id number] May, Bipolar I disorder, most rec ent episode (or current) mixed, moderate F31.62 [facility] [address] [facility] [id number] [address] [place] [id number] 14 May, 2016 [facility] [address] [facility] [id number] [address] [place] [phone] 08 May, 2016 Bipolar I disorder, most rec ent episode (or current) mixed, moderate F31.62 [facility] [address] [facility] [id number] [address] [place] [id number] 06 May, 2016 Diabetes E11.9 and Essential hypertension I10 [facility] [address] [facility] [id number] [address] [place] [id number] Apr, Chronic pain G89.29 [facility] [address] [id number] [address] [place] [address] Apr, Bipolar I disorder, most rec ent episode (or current) mixed, moderate F31.62 [facility] [address] [facility] [id number] [address] [place] [phone] Apr, [facility] [address] [facility] [id number] [address] [place] [phone] Apr, [facility] [address] [facility] [id number] [address] [place] [address] Mar, Chronic pain G89.29 ; Headac he, unspecified headache type R51 ; Neuropathy G62.9 ; Pain of right hip joint M25.551 and Essential hypertension I10 [place] [address] [facility] [id number] [address] [place] [address] Mar, Chronic pain G89.29 [facility] [address] [facility] [id number] [address] [place] [phone] Mar, Bipolar I disorder, most rec ent episode (or current) mixed, moderate F31.62 [place] [address] [facility] [id number] [address] [place] [address] Feb, Bipolar I disorder, most rec ent episode (or current) mixed, moderate F31.62 and Insomnia, unspecified type G47.00 [place] [address] [facility] [id number] [address] [place] [address] Feb, Chronic pain G89.29 [facility] [address] [facility] [id number] [address] [place] [id number] Feb, Bipolar I disorder, most rec ent episode (or current) mixed, moderate F31.62 [place] [address] [facility] [id number] [address] [place] [address] January, Bipolar I disorder, most rec ent episode (or current) mixed, moderate F31.62 [place] [address] [facility] [id number] [address] [place] [address] January, Chronic pain G89.29 [facility] [address] [facility] [id number] [address] [place] [id number] January, Chronic pain G89.29 and Esse ntial hypertension I10 [facility] [address] [facility] [id number] [address] [place] [id number] January, Bipolar I disorder, most rec ent episode (or current) mixed, moderate F31.62 [facility] [address] [facility] [id number] [address] [place] [phone] Dec, [facility] [address] [facility] [id number] [address] [place] [phone] Dec, [facility] [address] [place] [id number] [address] [place] [address] Dec, [facility] [address] [facility] [id number] [address] [place] [phone] Dec, [facility] [address] [facility] [id number] [address] [place] [id number] Nov, Reactive airway disease J45. 909 [facility] [address] [place] [id number] [address] [place] [phone] Nov, [facility] [address] [facility] [id number] [address] [place] [address] Nov, [facility] [address] [facility] [id number] [address] [place] [address] Nov, [facility] [address] [facility] [id number] [address] [place] [phone] Nov, [facility] [address] [place] [id number] [address] [place] [address] Nov, Onychomycosis B35.1 ; Hammer toe M20.40 ; Midway or callus L84 and DM neuro manif type II E11.49 [facility] [address] [id number] Nov, Chronic pain G89.29 ; Leukoc ytosis D72.829 and Diabetes E11.9 [place] [address] [id number] Nov, [place] [address] [address] Oct, Bronchitis J40 [place] [address] [id number] Oct, [place] [address] [id number] Oct, [place] [address] [id number] Oct, Mastoiditis, unspecified lat erality H70.90 and Type 2 diabetes mellitus with complication E11.8 [place] [address] [id number] Sep, [place] [address] [address] Sep, Dysuria R30.0 ; Cough R05 ; Benign prostatic hyperplasia with lower urinary tract symptoms, unspecified morphology N40.1 ; Hypokalemia E87.6 and Eustachian tube dysfunction, unspecified laterality H69.80 [place] [address] [id number] Sep, Moderate mixed bipolar I dis order F31.62 [place] [address] [id number] Sep, Hypokalemia E87.6 [place] [address] [id number] Sep, [place] [address] [id number] Sep, Upper respiratory tract infe ction, unspecified type J06.9 [facility] [address] [id number] [address] [place] [address] Aug, [facility] [address] [id number] [address] [place] [id number] Aug, Dysuria R30.0 [facility] [address] [id number] [address] [place] [id number] Aug, [facility] [address] [id number] [address] [place] [id number] Jul, [facility] [address] [id number] [address] [place] [id number] Jul, [facility] [address] [id number] [address] [place] [phone] Jul, [facility] [address] [id number] [address] [place] [address] Jul, [facility] [address] [id number] [address] [place] [id number] Jun, [facility] [address] [id number] [address] [place] [address] Jun, [facility] [address] [id number] [address] [place] [id number] Jun, [facility] [address] [facility] [id number] [address] [place] [id number] May, [facility] [address] [id number] [address] [place] [address] May, Bipolar I disorder, most rec ent episode (or current) mixed, moderate 296.62 [facility] [address] [id number] [address] [place] [address] 16 May, 2015 [facility] [address] [facility] [id number] [address] [place] [id number] May, Bipolar I disorder, most rec ent episode (or current) mixed, moderate 296.62 and Major depressive disorder, recurrent episode, severe, specified as with psychotic behavior 296.34 [facility] [address] [id number] [address] [place] [address] May, Bipolar I disorder, most rec ent episode (or current) mixed, moderate 296.62 [facility] [address] [id number] [address] [place] [id number] May, [facility] [address] [id number] [address] [place] [address] Apr, [facility] [address] [id number] [address] [place] [id number] Apr, [facility] [address] [facility] [id number] [address] [place] [id number] Apr, Unspecified disorder of kidn ey and ureter 593.9 and Diabetes mellitus type 2, uncontrolled 250.02 [facility] [address] [facility] [id number] [address] [place] [address] Apr, [facility] [address] [id number] [address] [place] [id number] Apr, [facility] [address] [facility] [id number] [address] [place] [id number] Apr, [facility] [address] [facility] [id number] [address] [place] [address] Apr, [facility] [address] [id number] [address] [place] [id number] Apr, Diabetes mellitus type II, u ncontrolled 250.02 [facility] [address] [id number] [address] [place] [address] Apr, [facility] [address] [facility] [id number] [address] [place] [address] Mar, [facility] [address] [facility] [id number] [address] [place] [id number] Mar, [facility] [address] [place] [id number] [address] [place] [id number] Mar, [facility] [address] [place] [id number] [address] [place] [id number] Mar, Major depressive disorder, r ecurrent episode, severe, specified as with psychotic behavior 296.34 and Bipolar I disorder, most recent episode (or current) mixed, moderate 296.62 [facility] [address] [place] [id number] [address] [place] [address] Mar, Diabetes 250.00 ; Anuria 788 .5 ; Nausea and vomiting 787.01 and Diarrhea 787.91 [facility] [address] [place] [id number] [address] [place] [address] Mar, Diabetes 250.00 [facility] [address] [place] [id number] [place] [address] Mar, [facility] [address] [id number] Mar, Diabetes 250.00 [facility] [address] [place] [id number] [address] [place] [id number] Mar, [facility] [address] [id number] Mar, [facility] [address] [place] [id number] [address] [place] [id number] Mar, [facility] [address] [place] [id number] [address] [place] [id number] Mar, [facility] [address] [place] [id number] [address] [place] [id number] Mar, Bipolar I disorder, most rec ent episode (or current) mixed, moderate 296.62 and Major depressive disorder, recurrent episode, severe, specified as with psychotic behavior 296.34 [facility] [address] [place] [id number] [address] [place] [id number] Mar, Magnesium deficiency 275.2 ; Hypokalemia 276.8 ; Nausea & vomiting 787.01 and Diabetes mellitus type 2, uncontrolled 250.02 [facility] [address] [id number] Feb, [facility] [address] [id number] Feb, Bipolar I disorder, most rec ent episode (or current) mixed, moderate 296.62 [place] [address] [id number] Feb, Nausea and vomiting 787.01 ; Left elbow pain 719.42 ; Anuria 788.5 and Diabetes 250.00 [place] [address] [id number] Feb, [place] [address] [address] Feb, Hypopotassemia 276.8 and Hyp okalemia 276.8 [place] [address] [id number] Feb, Hypopotassemia 276.8 and Hyp okalemia 276.8 [place] [address] [address] Feb, Seborrheic keratoses 702.19 [place] [address] [address] Feb, Hypopotassemia 276.8 and Low magnesium levels 275.2 [place] [address] [id number] January, [facility] [address] [id number] January, [place] [address] [address] January, [facility] [address] [address] January, Scalp lesion 709.9 [facility] [address] [id number] [address] [place] [id number] January, [facility] [address] [id number] [address] [place] [id number] Dec, Tear of medial cartilage or meniscus of knee, current 836.0 and Chondromalacia 733.92 [facility] [address] [id number] [address] [place] [id number] Dec, [facility] [address] [id number] [address] [place] [id number] Dec, [facility] [address] [id number] [address] [place] [id number] Dec, Squamous cell carcinoma, 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 [facility] [address] [id number] [address] [place] [id number] Dec, [facility] [address] [id number] [address] [place] [id number] Dec, [facility] [address] [id number] [address] [place] [id number] Nov, [facility] [address] [id number] [address] [place] [id number] Nov, [facility] [address] [id number] [address] [place] [id number] Nov, [facility] [address] [id number] [address] [place] [phone] Nov, [facility] [address] [id number] [address] [place] [id number] Nov, [facility] [address] [id number] [address] [place] [id number] Nov, [facility] [address] [id number] [address] [place] [id number] Nov, [facility] [address] [id number] [address] [place] [id number] Nov, [facility] [address] [id number] [address] [place] [address], [place] [id number] Nov, [facility] [address] [id number] [address] [place] [address], [place] [id number] Nov, [facility] [address] [id number] [place] [address], [place] [address] Nov, [facility] [address] [id number] [address] [place] [address], [place] [address] Nov, [facility] [address] [id number] [address] [place] [address], [place] [address] Oct, 2014 [facility] [address] [id number] [address] [place] [address], [place] [address] Oct, 2014 [facility] [address] [id number] [address] [place] [address], [place] [address] Oct, 2014 [facility] [address] [id number] [address] [place] [address] Oct, 2014 [facility] [address] [id number] [address] [place] [address], [place] [address] Oct, 2014 [facility] [address] [id number] [address] [place] [address], [place] [address] Oct, 2014 [facility] [address] [id number] [address] [place] [address], [place] [address] Oct, 2014 [facility] [address] [id number] [address] [place] [address] Oct, 2014 [facility] [address] [id number] [address] [place] [address] Oct, [facility] [address] [id number] [address] [place] [address] Sep, [facility] [address] [id number] [address] [place] [address] Sep, [facility] [address] [id number] [address] [place] [address], [place] [address] Sep, [facility] [address] [id number] [address] [place] [address], [place] [address] Sep, [facility] [address] [id number] [address] [place] [address], [place] [address] Sep, [facility] [address] [id number] [address] [place] [address], [place] [address] Sep, [facility] [address] [id number] [address] [place] [address], [place] [address] Sep, [facility] [address] [id number] [address] [place] [address], [place] [address] Sep, [facility] [address] [id number] [address] [place] [address], [place] [address] Sep, [facility] [address] [id number] [address] [place] [address], [place] [address] Sep, [facility] [address] [id number] [address] [place] [address], [place] [address] Sep, [facility] [address] [id number] [address] [place] [address], [place] [address] Sep, [facility] [address] [id number] [address] [place] [address], [place] [address] Sep, [facility] [address] [id number] [address] [place] [address], [place] [address] Sep, [facility] [address] [id number] [address] [place] [address], [place] [address] Sep, [facility] [address] [id number] [address] [place] [address], [place] [address] Sep, [facility] [address] [id number] [address] [place] [address], [place] [address] Aug, [facility] [address] [id number] [address] [place] [address], [place] [address] Aug, [facility] [address] [id number] [facility] [place] [address] Aug, [facility] [address] [id number] [address] [place] [address], [place] [address] Aug, [facility] [address] [id number] [facility] [place] [address] Aug, [facility] [address] [id number] [address] [place] [address], [place] [address] Aug, [facility] [address] [id number] [facility] [place] [address] Aug, [facility] [address] [id number] [address] [place] [address], [place] [address] Aug, [facility] [address] [id number] [address] [place] [address], [place] [address] Aug, [facility] [address] [id number] [address] [place] [address], [place] [address] Aug, [facility] [address] [id number] [address] [place] [address], [place] [address] Aug, [facility] [address] [place] [id number] Aug, [facility] [address] [id number] [address] [place] [address], [place] [address] Aug, [facility] [address] [id number] [address] [place] [address], [place] [address] Aug, [facility] [address] [id number] [address] [place] [address], [place] [address] Aug, [facility] [address] [id number] [address] [place] [address], [place] [address] Aug, [facility] [address] [id number] [address] [place] [address], [place] [address] Aug, [facility] [address] [id number] [address] [place] [address], [place] [address] Aug, [facility] [address] [id number] [address] [place] [address], [place] [address] Aug, 2014 [facility] [address] [id number] [address] [place] [address], [place] [address] Aug, [facility] [address] [id number] [address] [place] [address], [place] [address] Aug, [facility] [address] [id number] [address] [place] [address], [place] [address] Aug, [facility] [address] [id number] [address] [place] [address], [place] [address] Aug, [facility] [address] [id number] [address] [place] [address], [place] [address] Aug, [facility] [address] [id number] [address] [place] [address], [place] [address] Aug, [facility] [address] [id number] [address] [place] [address], [place] [address] Aug, [facility] [address] [id number] [address] [place] [address], [place] [address] Aug, [facility] [address] [id number] [address] [place] [address], [place] [address] Aug, [facility] [address] [id number] [address] [place] [address], [place] [address] Aug, [facility] [address] [id number] [address] [place] [address], [place] [address] Aug, [facility] [address] [id number] [address] [place] [address], [place] [address] Jul, [facility] [address] [id number] [address] [place] [address], [place] [address] Jul, [facility] [address] [id number] [address] [place] [address], [place] [address] Jul, [facility] [address] [id number] [address] [place] [address], [place] [address] Jul, [facility] [address] [id number] [address] [place] [address], [place] [address] Jul, [facility] [address] [id number] [address] [place] [address], [place] [address] Jul, [facility] [address] [id number] [address] [place] [address], [place] [address] Jul, [facility] [address] [id number] [address] [place] [address], [place] [address] Jul, [facility] [address] [id number] [address] [place] [address], [place] [address] Jul, [facility] [address] [id number] [address] [place] [address], [place] [address] Jul, [facility] [address] [id number] [address] [place] [address], [place] [address] Jun, [facility] [address] [id number] [address] [place] [address], [place] [address] Jun, [facility] [address] [id number] [address] [place] [address], [place] [address] Jun, [facility] [address] [id number] [address] [place] [address], [place] [address] Jun, [facility] [address] [id number] [address] [place] [address], [place] [address] Jun, [facility] [address] [id number] [address] [place] [address], [place] [address] Jun, [facility] [address] [id number] [address] [place] [address], [place] [address] Jun, [facility] [address] [id number] [address] [place] [address], [place] [address] Jun, [facility] [address] [id number] [address] [place] [address], [place] [address] Jun, [facility] [address] [id number] [address] [place] [address], [place] [address] Jun, [facility] [address] [id number] [address] [place] [address], [place] [address] 29 May, 2013 [facility] [address] [id number] [address] [place] [address], [place] [address] 29 Sep, 2013 [facility] [address] [id number] [address] [place] [address], [place] [address] 26 Sep, 2013 [facility] [address] [id number] [address] [place] [address], [place] [address] 26 Sep, 2013 [facility] [address] [id number] [address] [place] [address], [place] [address] 17 May, 2013 [facility] [address] [id number] [address] [place] [address], [place] [address] 17 May, 2013 [facility] [address] [id number] [address] [place] [address], [place] [address] 15 May, 2013 [facility] [address] [id number] [address] [place] [address], [place] [address] 15 May, 2013 [facility] [address] [id number] [address] [place] [address], [place] [address] 15 May, 2013 [facility] [address] [id number] [address] [place] [address], [place] [address] 15 May, 2013 [facility] [address] [id number] [address] [place] [address] 10 Sep, 2013 [facility] [address] [id number] [address] [place] [address], [place] [address] 10 May, 2013 [facility] [address] [id number] [address] [place] [address], [place] [address] 09 Sep, 2013 [facility] [address] [id number] [address] [place] [address], [place] [address] 09 Sep, 2013 [facility] [address] [id number] [facility] [place] [address] May, [facility] [address] [id number] [address] [place] [address], [place] [address] May, [facility] [address] [id number] [facility] [place] [address] Apr, [facility] [address] [id number] [address] [place] [address], [place] [address] Apr, [facility] [address] [id number] [address] [place] [address], [place] [address] Apr, [facility] [address] [id number] [address] [place] [address], [place] [address] Apr, [facility] [address] [id number] [address] [place] [address], [place] [address] Apr, [facility] [address] [id number] [address] [place] [address], [place] [address] Apr, [facility] [address] [id number] [address] [place] [address], [place] [address] Apr, [facility] [address] [id number] [address] [place] [address], [place] [address] Apr, [facility] [address] [id number] [address] [place] [address], [place] [address] Apr, [facility] [address] [id number] [address] [place] [address], [place] [address] Apr, [facility] [address] [id number] [address] [place] [address], [place] [address] Apr, [facility] [address] [id number] [address] [place] [address], [place] [address] Apr, [facility] [address] [id number] [address] [place] [address], [place] [address] Apr, [facility] [address] [id number] [address] [place] [address], [place] [address] Apr, [facility] [address] [id number] [address] [place] [address], [place] [address] Apr, [facility] [address] [id number] [address] [place] [address], [place] [address] Mar, [facility] [address] [id number] [address] [place] [address], [place] [address] Mar, [facility] [address] [id number] [address] [place] [address], [place] [address] Mar, [facility] [address] [id number] [address] [place] [address], [place] [address] Mar, [facility] [address] [id number] [address] [place] [address], [place] [address] Mar, [facility] [address] [id number] [address] [place] [address], [place] [address] Mar, [facility] [address] [id number] [address] [place] [address], [place] [address] Mar, [facility] [address] [id number] [address] [place] [address], [place] [address] Mar, [facility] [address] [id number] [address] [place] [address], [place] [address] Mar, [facility] [address] [id number] [address] [place] [address], [place] [address] Mar, [facility] [address] [id number] [address] [place] [address], [place] [address] Mar, [facility] [address] [id number] [address] [place] [address], [place] [address] Mar, [facility] [address] [id number] [address] [place] [address], [place] [address] Mar, [facility] [address] [id number] [address] [place] [address], [place] [address] Mar, [facility] [address] [id number] [address] [place] [address], [place] [address] Mar, [facility] [address] [id number] [facility] [place] [address] Mar, [facility] [address] [id number] [address] [place] [address], [place] [address] Mar, [facility] [address] [id number] [address] [place] [address], [place] [address] Mar, [facility] [address] [id number] [address] [place] [address], [place] [address] Feb, [facility] [address] [id number] [address] [place] [address], [place] [address] Feb, [facility] [address] [id number] [address] [place] [address], [place] [address] Feb, [facility] [address] [id number] [address] [place] [address], [place] [address] Feb, [facility] [address] [id number] [address] [place] [address], [place] [address] Feb, [facility] [address] [id number] [address] [place] [address], [place] [address] Feb, [facility] [address] [id number] [address] [place] [address], [place] [address] Feb, [facility] [address] [id number] [address] [place] [address], [place] [address] Feb, [facility] [address] [id number] [address] [place] [address], [place] [address] Feb, [facility] [address] [id number] [address] [place] [address], [place] [address] Feb, [facility] [address] [id number] [address] [place] [address], [place] [address] Feb, [facility] [address] [id number] [address] [place] [address], [place] [address] Feb, [facility] [address] [id number] [facility] [place] [address] Feb, [facility] [address] [id number] [facility] [place] [address] Feb, [facility] [address] [id number] [facility] [place] [address] January, [facility] [address] [id number] [facility] [place] [address] January, [facility] [address] [id number] [facility] [place] [address] January, [facility] [address] [id number] [address] [place] [address], [place] [address] January, [facility] [address] [id number] [address] [place] [address], [place] [address] January, [facility] [address] [id number] [address] [place] [address], [place] [address] January, [facility] [address] [id number] [address] [place] [address], [place] [address] January, [facility] [address] [id number] [address] [place] [address], [place] [address] January, [facility] [address] [id number] [address] [place] [address], [place] [address] January, [facility] [address] [id number] [address] [place] [address], [place] [address] January, [facility] [address] [id number] [address] [place] [address], [place] [address] January, [facility] [address] [id number] [address] [place] [address], [place] [address] January, [facility] [address] [id number] [address] [place] [address], [place] [address] January, [facility] [address] [id number] [address] [place] [address], [place] [address] January, [facility] [address] [id number] [facility] [place] [address] Dec, [facility] [address] [id number] [facility] [place] [address] Dec, [facility] [address] [id number] [address] [place] [address], [place] [address] Dec, [facility] [address] [id number] [address] [place] [address], [place] [address] Dec, [facility] [address] [id number] [address] [place] [address], [place] [address] Dec, [facility] [address] [id number] [address] [place] [address], [place] [address] Dec, [facility] [address] [id number] [address] [place] [address], [place] [address] Dec, [facility] [address] [id number] [address] [place] [address], [place] [address] Dec, [facility] [address] [id number] [address] [place] [address], [place] [address] Dec, [facility] [address] [id number] [address] [place] [address], [place] [address] Dec, [facility] [address] [id number] [address] [place] [address], [place] [id number] Nov, [facility] [address] [id number] [address] [place] [address], [place] [id number] Nov, [facility] [address] [id number] [address] [place] [address], [place] [address] Nov, [facility] [address] [id number] [address] [place] [address], [place] [address] Nov, [facility] [address] [id number] [address] [place] [address], [place] [id number] Nov, [facility] [address] [id number] [address] [place] [address], [place] [id number] 08 Nov, 2013 [facility] [address] [id number] [address] [place] [address], [place] [id number] 05 Nov, 2013 [facility] [address] [id number] [address] [place] [address], [place] [address] 05 Nov, 2013 [facility] [address] [id number] [address] [place] [address], [place] [address] Nov, [facility] [address] [id number] [address] [place] [address], [place] [address] Nov, [facility] [address] [id number] [address] [place] [address], [place] [address] Oct, [facility] [address] [id number] [address] [place] [address], [place] [address] Oct, [facility] [address] [id number] [address] [place] [address], [place] [address] Oct, [facility] [address] [id number] [address] [place] [address], [place] [address] Oct, [facility] [address] [id number] [address] [place] [address], [place] [address] 20 Oct, 2013 [facility] [address] [id number] [address] [place] [address], [place] [id number] 20 Oct, 2013 [facility] [address] [id number] [address] [place] [address], [place] [address] 14 Oct, 2013 [facility] [address] [id number] [address] [place] [address], [place] [id number] 14 Oct, 2013 [facility] [address] [id number] [address] [place] [address], [place] [id number] 05 Oct, 2013 [facility] [address] [id number] [address] [place] [address], [place] [id number] 05 Oct, 2013 [facility] [address] [id number] [address] [place] [address], [place] [id number] Oct, [facility] [address] [id number] [address] [place] [address], [place] [address] Oct, [facility] [address] [id number] [address] [place] [address], [place] [address] Oct, [facility] [address] [id number] [address] [place] [address], [place] [address] Oct, [facility] [address] [id number] [address] [place] [address], [place] [address] Sep, [facility] [address] [id number] [address] [place] [address], [place] [id number] Sep, [facility] [address] [id number] [address] [place] [address], [place] [id number] Sep, [facility] [address] [id number] [address] [place] [address], [place] [address] Sep, [facility] [address] [id number] [address] [place] [address], [place] [address] Sep, [facility] [address] [id number] [address] [place] [address], [place] [id number] Sep, [facility] [address] [id number] [address] [place] [address], [place] [address] Sep, [facility] [address] [id number] [address] [place] [address], [place] [address] Sep, [facility] [address] [id number] [address] [place] [address], [place] [address] Sep, [facility] [address] [id number] [address] [place] [address], [place] [address] Sep, [facility] [address] [id number] [address] [place] [address], [place] [address] Aug, [facility] [address] [id number] [address] [place] [address], [place] [address] Aug, [facility] [address] [id number] [address] [place] [address], [place] [address] Jul, [facility] [address] [id number] [address] [place] [address], [place] [address] Jul, [facility] [address] [id number] [address] [place] [address], [place] [address] Jul, [facility] [address] [id number] [address] [place] [address], [place] [address] Jul, [facility] [address] [id number] [address] [place] [address], [place] [address] Jul, [facility] [address] [id number] [address] [place] [address], [place] [address] Jul, [facility] [address] [id number] [address] [place] [address], [place] [address] Jul, [facility] [address] [id number] [address] [place] [address], [place] [address] Jul, [facility] [address] [id number] [address] [place] [address], [place] [id number] Jul, [facility] [address] [id number] [address] [place] [address], [place] [id number] Jul, [facility] [address] [id number] [address] [place] [address], [place] [id number] Jul, [facility] [address] [id number] [address] [place] [address], [place] [address] Jul, [facility] [address] [id number] [address] [place] [address], [place] [address] Jul, [facility] [address] [id number] [address] [place] [address], [place] [address] Jul, [facility] [address] [id number] [address] [place] [address], [place] [address] Jul, [facility] [address] [id number] [address] [place] [address], [place] [address] Jul, [facility] [address] [id number] [address] [place] [address], [place] [address] Jul, 2012 [facility] [address] [id number] [address] [place] [address], [place] [address] Jul, [facility] [address] [id number] [address] [place] [address], [place] [address] Jul, 2012 [facility] [address] [id number] [address] [place] [address], [place] [address] Jun, 2012 [facility] [address] [id number] [address] [place] [address], [place] [address] Jun, 2012 [facility] [address] [id number] [address] [place] [address], [place] [address] Jun, 2012 [facility] [address] [id number] [address] [place] [address], [place] [address] Jun, 2012 [facility] [address] [id number] [address] [place] [id number] Jun, [facility] [address] [id number] [address] [place] [address] Jun, [facility] [address] [id number] [address] [place] [address] Jun, [facility] [address] [id number] [address] [place] [address] Jun, [facility] [address] [id number] [address] [place] [address] Jun, [facility] [address] [id number] [address] [place] [id number] Jun, [facility] [address] [id number] [address] [place] [address] Jun, [facility] [address] [id number] [address] [place] [address] May, [facility] [address] [id number] [address] [place] [address] 25 May, 2013 [facility] [address] [id number] [address] [place] [address], [place] [address] 19 May, 2012 [facility] [address] [id number] [address] [place] [address], [place] [address] 17 May, 2013 [facility] [address] [id number] [address] [place] [address], [place] [address] 11 May, 2012 [facility] [address] [id number] [address] [place] [address], [place] [address] 10 May, 2012 [facility] [address] [id number] [address] [place] [address], [place] [address] 09 May, 2013 [facility] [address] [id number] [address] [place] [address], [place] [address] 05 May, 2013 [facility] [address] [id number] [address] [place] [address], [place] [address] Apr, [facility] [address] [id number] [address] [place] [address], [place] [address] Apr, [facility] [address] [id number] [address] [place] [address], [place] [address] Apr, [facility] [address] [id number] [address] [place] [address], [place] [address] Apr, [facility] [address] [id number] [address] [place] [address], [place] [address] Apr, [facility] [address] [id number] [address] [place] [address], [place] [address] Mar, [facility] [address] [id number] [address] [place] [address], [place] [address] Mar, [facility] [address] [id number] [address] [place] [address], [place] [address] Mar, [facility] [address] [id number] [address] [place] [address], [place] [address] Mar, [facility] [address] [id number] [facility] [place] [address] Mar, [facility] [address] [id number] [address] [place] [address], [place] [address] Mar, [facility] [address] [id number] [address] [place] [address], [place] [address] Mar, [facility] [address] [id number] [address] [place] [address], [place] [address] Mar, [facility] [address] [id number] [address] [place] [address], [place] [address] Feb, [facility] [address] [id number] [address] [place] [address], [place] [address] Feb, [facility] [address] [id number] [address] [place] [address], [place] [address] January, [facility] [address] [id number] [address] [place] [address], [place] [address] January, [facility] [address] [id number] [address] [place] [address], [place] [address] Dec, [facility] [address] [id number] [address] [place] [address], [place] [address] Dec, [facility] [address] [id number] [address] [place] [address], [place] [address] Nov, [facility] [address] [id number] [address] [place] [address], [place] [address] Nov, [facility] [address] [id number] [address] [place] [address], [place] [address] Nov, [facility] [address] [id number] [address] [place] [address], [place] [address] Nov, [facility] [address] [id number] [address] [place] [address], [place] [address] Oct, [facility] [address] [id number] [address] [place] [address], [place] [address] Oct, [facility] [address] [id number] [address] [place] [address], [place] [address] Oct, [facility] [address] [id number] [address] [place] [address], [place] [address] Oct, [facility] [address] [id number] [address] [place] [address], [place] [address] 16 Oct, 2012 [facility] [address] [id number] [address] [place] [address], [place] [address] 14 Oct, 2012 [facility] [address] [id number] [address] [place] [address], [place] [address] 08 Oct, 2012 [facility] [address] [id number] [address] [place] [address], [place] [address] 07 Oct, 2012 [facility] [address] [id number] [address] [place] [address], [place] [address] 03 Oct, 2012 [facility] [address] [id number] [address] [place] [address], [place] [address] Sep, [facility] [address] [id number] [address] [place] [address], [place] [address] Sep, [facility] [address] [id number] [address] [place] [address], [place] [address] Sep, [facility] [address] [id number] [address] [place] [address], [place] [address] Sep, [facility] [address] [id number] [address] [place] [address], [place] [address] Sep, [facility] [address] [id number] [address] [place] [address], [place] [address] Sep, [facility] [address] [id number] [address] [place] [address], [place] [address] 09 Sep, 2012 [facility] [address] [id number] [address] [place] [address], [place] [address] 08 Sep, 2012 [facility] [address] [id number] [address] [place] [address], [place] [address] 31 Aug, 2012 [facility] [address] [id number] [address] [place] [address], [place] [address] Aug, [facility] [address] [id number] [address] [place] [address], [place] [address] Aug, [facility] [address] [id number] [address] [place] [address], [place] [address] Aug, [facility] [address] [id number] [address] [place] [address], [place] [address] Aug, [facility] [address] [id number] [address] [place] [address], [place] [address] Aug, [facility] [address] [id number] [address] [place] [address], [place] [address] Aug, [facility] [address] [id number] [address] [place] [address], [place] [address] Aug, [facility] [address] [id number] [address] [place] [address], [place] [address] Jul, [facility] [address] [id number] [address] [place] [address], [place] [address] Jul, [facility] [address] [id number] [address] [place] [address], [place] [address] Jul, [facility] [address] [id number] [address] [place] [address], [place] [address] Jul, [facility] [address] [id number] [address] [place] [address], [place] [address] Jul, [facility] [address] [id number] [address] [place] [address], [place] [address] Jul, [facility] [address] [id number] [address] [place] [address], [place] [address] Jun, [facility] [address] [id number] [address] [place] [address], [place] [address] Jun, [facility] [address] [id number] [address] [place] [address], [place] [address] Jun, [facility] [address] [id number] [address] [place] [address], [place] [address] Jun, [facility] [address] [id number] [address] [place] [address], [place] [address] Jun, [facility] [address] [id number] [address] [place] [address], [place] [address] Jun, [facility] [address] [id number] [address] [place] [address], [place] [address] Jun, [facility] [address] [id number] [address] [place] [address], [place] [address] Jun, [facility] [address] [id number] [address] [place] [address], [place] [address] Jun, [facility] [address] [id number] [address] [place] [address], [place] [address] 26 May, 2012 [facility] [address] [id number] [address] [place] [address], [place] [address] 24 May, 2012 [facility] [address] [id number] [address] [place] [address], [place] [address] 18 May, 2012 [facility] [address] [id number] [address] [place] [address], [place] [address] 30 Apr, 2012 [facility] [address] [id number] [address] [place] [address], [place] [address] 29 Apr, 2012 [facility] [address] [id number] [address] [place] [address], [place] [address] 18 Apr, 2012 [facility] [address] [id number] [address] [place] [address], [place] [address] 14 Apr, 2012 [facility] [address] [id number] [address] [place] [address], [place] [address] 10 Apr, 2012 [facility] [address] [id number] [address] [place] [address], [place] [address] Apr, [facility] [address] [id number] [address] [place] [address], [place] [address] Mar, [facility] [address] [id number] [address] [place] [address], [place] [address] Mar, [facility] [address] [id number] [address] [place] [address], [place] [address] Mar, [facility] [address] [id number] [address] [place] [address], [place] [address] Mar, [facility] [address] [id number] [address] [place] [address], [place] [address] Feb, [facility] [address] [id number] [address] [place] [address], [place] [address] Feb, [facility] [address] [id number] [address] [place] [address], [place] [address] Feb, [facility] [address] [id number] [address] [place] [address], [place] [address] Feb, [facility] [address] [id number] [address] [place] [address], [place] [address] Feb, [facility] [address] [id number] [address] [place] [address], [place] [address] January, [facility] [address] [id number] [address] [place] [address], [place] [address] January, [facility] [address] [id number] [address] [place] [address], [place] [address] January, [facility] [address] [id number] [address] [place] [address], [place] [address] January, [facility] [address] [id number] [address] [place] [address], [place] [id number] January, [facility] [address] [id number] [address] [place] [address], [place] [address] January, [facility] [address] [id number] [address] [place] [address], [place] [address] Dec, [facility] [address] [id number] [address] [place] [address], [place] [address] 24 Dec, 2011 [facility] [address] [id number] [address] [place] [address], [place] [address] 17 Dec, 2011 [facility] [address] [id number] [address] [place] [address], [place] [address] Dec, [facility] [address] [id number] [address] [place] [address], [place] [address] Dec, [facility] [address] [id number] [address] [place] [address], [place] [address] 27 Nov, 2011 [facility] [address] [id number] [address] [place] [address], [place] [address] 14 Nov, 2011 [facility] [address] [id number] [address] [place] [address], [place] [address] Nov, [facility] [address] [id number] [address] [place] [address], [place] [address] Nov, [facility] [address] [id number] [address] [place] [address], [place] [address] 29 Oct, 2011 [facility] [address] [id number] [address] [place] [address], [place] [address] Oct, [facility] [address] [id number] [address] [place] [address], [place] [address] 24 Oct, 2011 [facility] [address] [id number] [address] [place] [address], [place] [address] 13 Oct, 2011 [facility] [address] [id number] [address] [place] [address], [place] [address] 08 Oct, 2011 [facility] [address] [id number] [address] [place] [address], [place] [address] Sep, [facility] [address] [id number] [address] [place] [address], [place] [address] Sep, [facility] [address] [id number] [address] [place] [address], [place] [address] Sep, [facility] [address] [id number] [address] [place] [address], [place] [address] Sep, [facility] [address] [id number] [address] [place] [address], [place] [address] Sep, [facility] [address] [id number] [address] [place] [address], [place] [address] Sep, [facility] [address] [id number] [address] [place] [address], [place] [address] Aug, [facility] [address] [id number] [address] [place] [address], [place] [address] Aug, [facility] [address] [id number] [address] [place] [address], [place] [address] Aug, [facility] [address] [id number] [address] [place] [address], [place] [address] Jul, [facility] [address] [id number] [address] [place] [address], [place] [address] Jul, [facility] [address] [id number] [address] [place] [address], [place] [address] Jul, [facility] [address] [id number] [address] [place] [address], [place] [address] Jul, [facility] [address] [id number] [address] [place] [address], [place] [address] Jun, [facility] [address] [id number] [address] [place] [address], [place] [address] Jun, [facility] [address] [id number] [address] [place] [address], [place] [address] Jun, [facility] [address] [id number] [address] [place] [address], [place] [address] Jun, [facility] [address] [id number] [address] [place] [address], [place] [address] 10 Jun, 2011 [facility] [address] [id number] [address] [place] [address], [place] [address] 10 Jun, 2011 [facility] [address] [id number] [address] [place] [address], [place] [address] 11 Mar, 2011 [facility] [address] [id number] [address] [place] [address], [place] [address] 18 Dec, 2010 [facility] [address] [id number] [address] [place] [address], [place] [address] 11 Dec, 2010 [facility] [address] [id number] [address] [place] [address], [place] [address] 18 Nov, 2010 [facility] [address] [id number] [address] [place] [address], [place] [address] 16 Nov, 2010 [facility] [address] [id number] [address] [place] [address], [place] [address] 10 Sep, 2010 [facility] [address] [id number] [address] [place] [address], [place] [address] 31 Aug, 2010 [facility] [address] [id number] [address] [place] [address], [place] [address] 29 Aug, 2010 [facility] [address] [id number] [address] [place] [address], [place] [address] 29 Aug, 2010 [facility] [address] [id number] [address] [place] [address], [place] [address] 29 Aug, 2010 [facility] [address] [id number] [address] [place] [address], [place] [address] 27 Aug, 2010 [facility] [address] [id number] [address] [place] [address], [place] [address] 14 Aug, 2010 [facility] [address] [id number] [address] [place] [address], [place] [address] 08 Aug, 2010 [facility] [address] [id number] [address] [place] [address], [place] [id number] 08 Aug, 2010 [facility] [address] [id number] [address] [place] [address], [place] [id number] Aug, [facility] [address] [id number] [address] [place] [address], [place] [id number] Aug, [facility] [address] [id number] [address] [place] [address], [place] [id number] Aug, [facility] [address] [id number] [address] [place] [id number] Aug, [facility] [address] [id number] [address] [place] [address], [place] [id number] Jul, [facility] [address] [id number] [address] [place] [id number] Jul, [facility] [address] [id number] [address] [place] [address], [place] [id number] Jul, [facility] [address] [id number] [address] [place] [id number] Jul, [facility] [address] [id number] [address] [place] [id number] Jul, [facility] [address] [id number] [address] [place] [id number] Jul, [facility] [address] [id number] [address] [place] [id number] 24 Jun, 2010 [facility] [address] [id number] [address] [place] [id number] Jun, [facility] [address] [id number] [address] [place] [id number] Jun, [facility] [address] [id number] [address] [place] [id number] Jun, [facility] [address] [id number] [address] [place] [id number] Apr, [facility] [address] [id number] [address] [place] [address], [place] [id number] Mar, [facility] [address] [id number] [address] [place] [address], [place] [id number] 17 Feb, 2010 [facility] [address] [id number] [address] [place] [address], [place] [id number] January, [facility] [address] [id number] [address] [place] [address], [place] [id number] 15 Dec, 2009 [facility] [address] [id number] [address] [place] [address], [place] [id number] Nov, [facility] [address] [id number] [address] [place] [address], [place] [id number] 31 Aug, 2009 [facility] [address] [id number] [address] [place] [address], [place] [id number] Aug, [facility] [address] [id number] [address] [place] [address], [place] [id number] Aug, [facility] [address] [id number] [address] [place] [address], [place] [id number] Jul, [facility] [address] [id number] [address] [place] [address], [place] [id number] Jul, [facility] [address] [id number] [address] [place] [address], [place] [id number] 07 Jul, 2009 [facility] [address] [id number] [address] [place] [address], [place] [id number] 30 Jun, 2009 [facility] [address] [id number] [address] [place] [id number] 29 Jun, 2009 [facility] [address] [id number] [address] [place] [address], [place] [id number] 26 Jun, 2009 [facility] [address] [id number] [address] [place] [address], [place] [id number] 22 Jun, 2009 [facility] [address] [id number] [address] [place] [id number] Jun, [facility] [address] [facility] [id number] [address] [place] [id number] Jun, [facility] [address] [facility] [id number] [address] [place] [id number] Apr, [facility] [address] [facility] [id number] [address] [place] [id number] Apr, [facility] [address] [facility] [id number] [address] [place] [id number] Feb, [facility] [address] [facility] [id number] [address] [place] [id number] January, [facility] [address] [facility] [id number] [address] [place] [id number] Dec, IMMUNIZATIONS No Known Immunizations SOCIAL HISTORY [...]
--- OUTSIDE RECORDS SUMMARY | 2020-03-01 18:25 | XMS REPORT ---
Author Michele Fuentes Organization [facility] Address [address] [place] [address] Care Team Providers Care Chief Procurement Officer Name Role Phone ROSELINE LUIS Unavailable PROBLEMS Type Condition ICD9-CM Code LEU84-QD Code Onset Dates Condition S tatus SNOMED Code Problem Lymphocytosis D72.820 Active 326163 09 Problem Chronic lymphocytic leukemia C91.10 A ctive 72758912 Problem Eye exam abnormal R93.8 Active 16 7542528 Problem Eustachian tube dysfunction, unspecified laterality H69.80 Active 59385699 Problem Dysuria R30.0 Active 85797883 Problem Cough R05 Active 40686726 Problem Hypokalemia E87.6 Active 74353978 Problem Bilateral primary osteoarthritis of knee M17.0 Active 714056591 Problem Benign prostatic hyperplasia with lower urinary tract symptoms, unspecified morphology N40.1 Active 45239 6007 Problem Retinal edema H35.81 Active 119187 6 Problem DM neuro manif type II E11.49 Active 40031632 Problem Anemia of chronic illness D63.8 Acti ve 668658579 Problem Falling R29.6 Active 762410121 Problem 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 Active 084643225 Problem Mild cognitive impairment G31.84 Acti ve 895730709 Problem Other chronic pain G89.29 Active 8 5087989 Problem Diabetes E11.9 Active 25688257 Problem Leukocytosis D72.829 Active 1659086 06 Problem Chronic pain G89.29 Active 6282906 1 Problem Pure hypercholesterolemia E78.00 Acti ve 061657869 Problem Bipolar disorder, in partial remission, most rec ent episode depressed F31.75 Active 34059983 Problem Other iron deficiency anemia D50.8 A ctive 71127267 Problem Primary osteoarthritis of right knee M17.11 Active 158408421376058 Problem Insomnia, unspecified type G47.00 Act sharon 132870729 Problem Anxiety F41.9 Active 68054883 Problem Reactive airway disease J45.909 Active 782303008084 Problem Bipolar I disorder, most recent episode (or curr ent) mixed, moderate F31.62 Active 95682973 Problem Diabetic polyneuropathy associated with type 2 d iabetes mellitus E11.42 Active 47373492 Problem Polyneuropathy associated with underlying disease G63 Active 733494127 Problem Morbid obesity E66.01 Active 56804 6002 Problem Essential hypertension I10 Active 67932644 ALLERGIES No Information ENCOUNTERS Encounter Location Date Diagnosis [place] [address] [place] [place] [id number] [place] [address] Sep, [place] [address] [place] [id number] [place] [address] Sep, [place] [address] [address] Aug, Bipolar I disorder, most rec ent episode (or current) mixed, moderate F31.62 [place] [address] [place] [id number] [place] [address] Aug, Bipolar I disorder, most rec ent episode (or current) mixed, moderate F31.62 and Mild cognitive impairment G31.84 [place] [address] [place] [address] [id number] [place] [address] Jul, [place] [address] [place] [id number] [place] [address] Jul, Chronic pain G89.29 [place] [address] [place] [id number] [place] [address] Jul, Bipolar I disorder, most rec ent episode (or current) mixed, moderate F31.62 and Mild cognitive impairment G31.84 [place] [address] [place] [id number] [place] [address] Jul, Bipolar I disorder, most rec ent episode (or current) mixed, moderate F31.62 and MCI (mild cognitive impairment) G31.84 [place] [address] [place] [id number] [place] [address] Jul, [place] [address] [id number] [address] [place] [address] Jul, [facility] [address] [id number] [address] [place] [address] Jul, Bipolar I disorder, most rec ent episode (or current) mixed, moderate F31.62 [facility] [address] [id number] [address] [place] [address] Jul, Chronic pain G89.29 [facility] [address] [id number] [address] [place] [address] Jun, Bipolar I disorder, most rec ent episode (or current) mixed, moderate F31.62 [facility] [address] [facility] [id number] [address] [place] [address] Jun, Pre-procedure lab exam Z01.8 12 [facility] [address] [facility] [id number] [address] [place] [address] Jun, [facility] [address] [id number] [place] [id number] Jun, [facility] [address] [facility] [id number] [address] [place] [address] Jun, [facility] [address] [facility] [id number] [address] [place] [address] Jun, Forgetfulness R68.89 ; Pre-s yncope R55 ; Localized edema R60.0 ; Other iron deficiency anemia D50.8 and BMI 50.0-59.9, adult Z68.43 [facility] [address] [id number] [address] [place] [address] Jun, Chronic pain G89.29 [facility] [address] [facility] [id number] [address] [place] [address] Jun, Chronic pain G89.29 [facility] [address] [facility] [id number] [address] [place] [address] Jun, Bipolar I disorder, most rec ent episode (or current) mixed, moderate F31.62 [facility] [address] [facility] [id number] [address] [place] [address] 07 May, 2018 Chronic pain G89.29 [facility] [address] [facility] [id number] [address] [place] [phone] Apr, [facility] [address] [facility] [id number] [address] [place] [address] Apr, Chronic pain G89.29 [facility] [address] [facility] [id number] [address] [place] [address] Apr, Primary osteoarthritis of ri ght knee M17.11 [facility] [address] [facility] [id number] [address] [place] [address] Mar, [place] [address] [facility] [id number] [address] [place] [address] Mar, BMI 50.0-59.9, adult Z68.43 and Bipolar disorder, in partial remission, most recent episode depressed F31.75 [place] [address] [facility] [id number] [address] [place] [address] Mar, Diabetes E11.9 ; Pure hyperc holesterolemia E78.00 ; Essential hypertension I10 ; Nausea with vomiting, unspecified R11.2 and Headache, unspecified headache type R51 [place] [address] [facility] [id number] [address] [place] [address] Mar, Bipolar I disorder, most rec ent episode (or current) mixed, moderate F31.62 [place] [id number] [facility] [id number] [address] [place] [address] Mar, Bipolar I disorder, most rec ent episode (or current) mixed, moderate F31.62 [place] [address] [facility] [id number] [address] [place] [address] Mar, Chronic pain G89.29 [facility] [address] [facility] [id number] [address] [place] [address] Mar, Bipolar I disorder, most rec ent episode (or current) mixed, moderate F31.62 [facility] [address] [facility] [id number] [address] [place] [address] Feb, Bipolar I disorder, most rec ent episode (or current) mixed, moderate F31.62 [facility] [address] [facility] [id number] [address] [place] [address] Feb, Chronic pain G89.29 [facility] [address] [facility] [id number] [address] [place] [id number] Feb, Decubitus ulcer of right josselin t, stage 3 L89.893 and BMI 50.0-59.9, adult Z68.43 [facility] [address] [facility] [id number] [address] [place] [address] Feb, Bipolar I disorder, most rec ent episode (or current) mixed, moderate F31.62 [facility] [address] [facility] [id number] [address] [place] [address] Feb, [facility] [address] [facility] [id number] [address] [place] [address] January, [facility] [address] [facility] [id number] [address] [place] [address] January, Chronic pain G89.29 [facility] [address] [facility] [id number] [address] [place] [id number] January, Bipolar I disorder, most rec ent episode (or current) mixed, moderate F31.62 [facility] [address] [facility] [id number] [address] [place] [address] January, Bipolar I disorder, most rec ent episode (or current) mixed, moderate F31.62 [facility] [address] [facility] [id number] [address] [place] [address] Dec, Bipolar I disorder, most rec ent episode (or current) mixed, moderate F31.62 and BMI 50.0-59.9, adult Z68.43 [facility] [address] [place] [id number] [place] [address] Dec, Bipolar I disorder, most rec ent episode (or current) mixed, moderate F31.62 [place] [address] [place] [id number] [place] [address] Dec, Chronic pain G89.29 [place] [address] [place] [id number] [place] [address] Dec, DM neuro manif type II E11.4 9 ; Right flank pain R10.9 ; residential current use of opiate analgesic Z79.891 ; Encounter for medication monitoring Z51.81 and BMI 50.0-59.9, adult Z68.43 [place] [address] [place] [id number] [place] [address] Dec, Bipolar I disorder, most rec ent episode (or current) mixed, moderate F31.62 [place] [address] [place] [id number] [place] [address] Nov, Bipolar I disorder, most rec ent episode (or current) mixed, moderate F31.62 [place] [address] [place] [id number] [place] [address] Nov, Chronic pain G89.29 [place] [address] [place] [id number] [place] [address] Nov, Bipolar I disorder, most rec ent episode (or current) mixed, moderate F31.62 [place] [address] [place] [id number] [place] [address] Nov, Hypokalemia E87.6 [place] [address] [place] [id number] [place] [address] Nov, Bipolar I disorder, most rec ent episode (or current) mixed, moderate F31.62 [place] [address] [place] [id number] [place] [address] Oct, Chronic pain G89.29 [place] [address] [place] [id number] [place] [address] Oct, BMI 50.0-59.9, adult Z68.43 and Bipolar I disorder, most recent episode (or current) mixed, moderate F31.62 [facility] [address] [place] [id number] [place] [address] Oct, Bipolar I disorder, most rec ent episode (or current) mixed, moderate F31.62 [facility] [address] [address] Oct, [facility] [address] [place] [id number] [place] [address] Oct, Hypokalemia E87.6 [place] [address] [place] [id number] [place] [address] Oct, DM neuro manif type II E11.4 9 [place] [address] [address] Oct, Bipolar I disorder, most rec ent episode (or current) mixed, moderate F31.62 [place] [address] [address] Oct, Bipolar I disorder, most rec ent episode (or current) mixed, moderate F31.62 [facility] [address] [place] [id number] [place] [address] 14 Oct, 2017 Hyperkalemia E87.5 ; Falling R29.6 ; BMI 50.0-59.9, adult Z68.43 and Acute left ankle pain M25.572 [place] [address] [place] [id number] [place] [address] Oct, DM neuro manif type II E11.4 9 [facility] [address] [place] [id number] [place] [address] Oct, [facility] [address] [place] [id number] [place] [address] Sep, Chronic pain G89.29 [facility] [address] [place] [id number] [place] [address] Sep, [facility] [address] [place] [id number] [place] [address] Sep, Bilateral primary osteoarthr itis of knee M17.0 [place] [address] [address] Sep, Generalized edema R60.1 [place] [address] [place] [id number] [place] [address] Sep, Bipolar I disorder, most rec ent episode (or current) mixed, moderate F31.62 [place] [address] [address] Sep, Hypoxia R09.02 ; Other hyper volemia E87.79 ; Diabetes E11.9 ; Retinal edema H35.81 ; Hypokalemia E87.6 ; 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 ; Anemia of chronic illness D63.8 and BMI 50.0- 59.9, adult Z68.43 [place] [address] [address] Sep, [place] [address] [address] Sep, Bipolar I disorder, most rec ent episode (or current) mixed, moderate F31.62 [place] [address] [place] [id number] [place] [address] Aug, Chronic pain G89.29 [place] [address] [place] [id number] [place] [address] Aug, Generalized edema R60.1 [place] [address] [place] [id number] [place] [address] Aug, [place] [address] [address] Aug, [facility] [address] [facility] [id number] [address] [place] [address] Aug, Bipolar I disorder, most rec ent episode (or current) mixed, moderate F31.62 [facility] [address] [facility] [id number] [address] [place] [address] Aug, Bipolar I disorder, most rec ent episode (or current) mixed, moderate F31.62 [place] [address] [facility] [id number] [address] [place] [address] Aug, Chronic pain G89.29 [place] [address] [place] [id number] [place] [address] Jul, Bipolar I disorder, most rec ent episode (or current) mixed, moderate F31.62 [place] [address] [place] [id number] [place] [address] Jul, Bipolar I disorder, most rec ent episode (or current) mixed, moderate F31.62 and BMI 60.0-69.9, adult Z68.44 [place] [address] [place] [id number] [place] [address] Jul, Bipolar I disorder, most rec ent episode (or current) mixed, moderate F31.62 [facility] [address] [place] [id number] [place] [address] Jul, Chronic pain G89.29 [place] [address] [place] [id number] [place] [address] Jul, Bipolar I disorder, most rec ent episode (or current) mixed, moderate F31.62 [place] [address] [place] [id number] [place] [address] Jun, Polyneuropathy associated wi th underlying disease G63 and Diabetes E11.9 [facility] [address] [facility] [id number] [address] [place] [address] Jun, Bipolar I disorder, most rec ent episode (or current) mixed, moderate F31.62 [facility] [address] [id number] [address] [place] [address] 09 Jun, 2017 Chronic pain G89.29 [facility] [address] [id number] [address] [place] [address] May, Bipolar I disorder, most rec ent episode (or current) mixed, moderate F31.62 [facility] [address] [id number] [address] [place] [address] May, Bipolar I disorder, most rec ent episode (or current) mixed, moderate F31.62 [facility] [address] [id number] [address] [place] [address] May, Diabetic polyneuropathy asso ciated with type 2 diabetes mellitus E11.42 [facility] [address] [id number] [address] [place] [address] 18 May, 2017 Bipolar I disorder, most rec ent episode (or current) mixed, moderate F31.62 [facility] [address] [id number] [address] [place] [address] May, Bipolar I disorder, most rec ent episode (or current) mixed, moderate F31.62 [facility] [address] [id number] [address] [place] [address] May, Chronic pain G89.29 [facility] [address] [id number] [address] [place] [address] Apr, Bipolar I disorder, most rec ent episode (or current) mixed, moderate F31.62 [facility] [address] [id number] [address] [place] [address] Apr, [facility] [address] [facility] [id number] [address] [place] [address] Apr, Chronic pain G89.29 and DM n euro manif type II E11.49 [facility] [address] [id number] [address] [place] [address] Apr, [facility] [address] [id number] [address] [place] [address] Apr, Bipolar I disorder, most rec ent episode (or current) mixed, moderate F31.62 [facility] [address] [facility] [id number] [address] [place] [address] Apr, Chronic pain G89.29 [facility] [address] [facility] [id number] [address] [place] [address] Apr, Iliotibial band syndrome, le ft M76.32 [facility] [address] [id number] [address] [place] [address] Apr, Bipolar I disorder, most rec ent episode (or current) mixed, moderate F31.62 [facility] [address] [facility] [id number] [address] [place] [address] Mar, Bipolar I disorder, most rec ent episode (or current) mixed, moderate F31.62 [place] [address] [facility] [id number] [address] [place] [address] Mar, Bipolar I disorder, most rec ent episode (or current) mixed, moderate F31.62 [facility] [address] [facility] [id number] [address] [place] [phone] Mar, [facility] [address] [facility] [id number] [address] [place] [address] Mar, Bipolar I disorder, most rec ent episode (or current) mixed, moderate F31.62 [facility] [address] [facility] [id number] [address] [place] [address] Mar, Chronic pain G89.29 [facility] [address] [id number] [address] [place] [address] Mar, Bipolar I disorder, most rec ent episode (or current) mixed, moderate F31.62 [facility] [address] [facility] [id number] [address] [place] [address] Mar, Bipolar I disorder, most rec ent episode (or current) mixed, moderate F31.62 [facility] [address] [place] [id number] [place] [address] Mar, Acute pain of left knee M25. 562 ; Left hip pain M25.552 ; Generalized edema R60.1 and Tongue swelling R22.0 [facility] [address] [place] [id number] [place] [address] Mar, [facility] [address] [place] [id number] [place] [address] Feb, Chronic pain G89.29 [place] [address] [place] [id number] [place] [address] Feb, Diabetes E11.9 [place] [address] [place] [id number] [place] [address] January, Chronic pain G89.29 [place] [address] [place] [id number] [place] [address] January, [facility] [address] [place] [id number] [place] [address] January, Bipolar I disorder, most rec ent episode (or current) mixed, moderate F31.62 [place] [address] [place] [id number] [place] [address] Dec, Bipolar I disorder, most rec ent episode (or current) mixed, moderate F31.62 [place] [address] [place] [id number] [place] [address] Dec, Chronic pain G89.29 [place] [address] [place] [id number] [place] [address] Dec, Bipolar I disorder, most rec ent episode (or current) mixed, moderate F31.62 [place] [address] [place] [id number] [place] [id number] Dec, Diabetes E11.9 ; Essential h ypertension I10 ; Chronic pain G89.29 and Morbid obesity E66.01 [place] [address] [place] [id number] [address] [place] [id number] Dec, [facility] [address] [id number] [address] [place] [id number] Dec, Bipolar I disorder, most rec ent episode (or current) mixed, moderate F31.62 [facility] [address] [facility] [id number] [address] [place] [id number] Dec, Bipolar I disorder, most rec ent episode (or current) mixed, moderate F31.62 [facility] [address] [id number] [address] [place] [id number] Nov, Chronic pain G89.29 [facility] [address] [id number] [address] [place] [id number] Nov, Bipolar I disorder, most rec ent episode (or current) mixed, moderate F31.62 [facility] [address] [facility] [id number] [address] [place] [id number] Nov, [facility] [address] [id number] [address] [place] [id number] Nov, Bipolar I disorder, most rec ent episode (or current) mixed, moderate F31.62 [facility] [address] [facility] [id number] [address] [place] [id number] Nov, Bipolar I disorder, most rec ent episode (or current) mixed, moderate F31.62 [facility] [address] [id number] [address] [place] [id number] Nov, [facility] [address] [id number] [address] [place] [id number] Nov, [facility] [address] [facility] [id number] [address] [place] [id number] Nov, [facility] [address] [facility] [id number] [address] [place] [id number] Oct, Chronic pain G89.29 [facility] [address] [facility] [id number] [address] [place] [id number] 27 Oct, 2016 Bipolar I disorder, most rec ent episode (or current) mixed, moderate F31.62 [facility] [address] [id number] [address] [place] [phone] Oct, [facility] [address] [facility] [id number] [address] [place] [id number] Oct, Chronic pain G89.29 ; Diabet es E11.9 ; Anxiety F41.9 and 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 [facility] [address] [facility] [id number] [address] [place] [address] Oct, [facility] [address] [facility] [id number] [address] [place] [address] Oct, Diabetes E11.9 [facility] [address] [facility] [id number] [address] [place] [address] Oct, Bipolar I disorder, most rec ent episode (or current) mixed, moderate F31.62 [facility] [address] [facility] [id number] [address] [place] [address] Sep, Chronic pain G89.29 [facility] [address] [facility] [id number] [address] [place] [address] Sep, Chronic pain G89.29 [facility] [address] [facility] [id number] [address] [place] [address] Aug, Chronic pain G89.29 [facility] [address] [id number] [address] [place] [phone] Jul, [facility] [address] [facility] [id number] [address] [place] [address] Jul, Diabetes E11.9 [facility] [address] [facility] [id number] [address] [place] [address] Jul, Chronic pain G89.29 [facility] [address] [facility] [id number] [address] [place] [address] Jul, Bipolar I disorder, most rec ent episode (or current) mixed, moderate F31.62 [facility] [address] [facility] [id number] [address] [place] [address] Jun, Bipolar I disorder, most rec ent episode (or current) mixed, moderate F31.62 [facility] [address] [place] [id number] [address] [place] [address] Jun, [facility] [address] [place] [id number] [address] [place] [address] Jun, Bipolar I disorder, most rec ent episode (or current) mixed, moderate F31.62 [facility] [address] [facility] [id number] [address] [place] [address] May, Insomnia, unspecified type G 47.00 [facility] [address] [place] [id number] [address] [place] [address] May, Bipolar I disorder, most rec ent episode (or current) mixed, moderate F31.62 [facility] [address] [place] [id number] [address] [place] [address] May, [facility] [address] [place] [id number] [address] [place] [address] May, Bipolar I disorder, most rec ent episode (or current) mixed, moderate F31.62 [facility] [address] [place] [id number] [address] [place] [address] May, Diabetes E11.9 and Essential hypertension I10 [facility] [address] [facility] [id number] [address] [place] [address] Apr, Chronic pain G89.29 [facility] [address] [place] [id number] [address] [place] [address] Apr, Bipolar I disorder, most rec ent episode (or current) mixed, moderate F31.62 [facility] [address] [place] [id number] [address] [place] [address] Apr, [place] [address] [facility] [id number] [address] [place] [address] Apr, [place] [address] [place] [id number] [address] [place] [address] Mar, Chronic pain G89.29 ; Headac he, unspecified headache type R51 ; Neuropathy G62.9 ; Pain of right hip joint M25.551 and Essential hypertension I10 [place] [address] [place] [id number] [address] [place] [address] Mar, Chronic pain G89.29 [place] [address] [place] [id number] [address] [place] [address] Mar, Bipolar I disorder, most rec ent episode (or current) mixed, moderate F31.62 [place] [address] [place] [id number] [place] [address] Feb, Bipolar I disorder, most rec ent episode (or current) mixed, moderate F31.62 and Insomnia, unspecified type G47.00 [place] [address] [place] [id number] [address] [place] [address] Feb, Chronic pain G89.29 [place] [address] [place] [id number] [address] [place] [address] Feb, Bipolar I disorder, most rec ent episode (or current) mixed, moderate F31.62 [place] [address] [place] [id number] [address] [place] [address] January, Bipolar I disorder, most rec ent episode (or current) mixed, moderate F31.62 [place] [address] [place] [id number] [address] [place] [address] January, Chronic pain G89.29 [place] [address] [place] [id number] [address] [place] [address] January, Chronic pain G89.29 and Esse ntial hypertension I10 [place] [address] [place] [id number] [address] [place] [address] January, Bipolar I disorder, most rec ent episode (or current) mixed, moderate F31.62 [facility] [address] [place] [id number] [address] [place] [address] Dec, [facility] [address] [facility] [id number] [address] [place] [address] Dec, [facility] [address] [facility] [id number] [address] [place] [address] Dec, [facility] [address] [facility] [id number] [address] [place] [address] Dec, [facility] [address] [place] [id number] [place] [address] Nov, Reactive airway disease J45. 909 [facility] [address] [place] [id number] [address] [place] [address] Nov, [facility] [address] [place] [id number] [address] [place] [address] Nov, [facility] [address] [place] [id number] [address] [place] [address] Nov, [facility] [address] [place] [id number] [address] [place] [address] Nov, [facility] [address] [place] [id number] [address] [place] [address] Nov, Onychomycosis B35.1 ; Hammer toe M20.40 ; [place] or callus L84 and DM neuro manif type II E11.49 [facility] [address] [place] [id number] [address] [place] [address] Nov, Chronic pain G89.29 ; Leukoc ytosis D72.829 and Diabetes E11.9 [facility] [address] [place] [id number] [address] [place] [address] Nov, [facility] [address] [place] [id number] [address] [place] [address] Oct, Bronchitis J40 [facility] [address] [address] Oct, [facility] [address] [address] Oct, [place] [address] [address] Oct, Mastoiditis, unspecified lat erality H70.90 and Type 2 diabetes mellitus with complication E11.8 [place] [address] [address] Sep, [place] [address] [address] Sep, Dysuria R30.0 ; Cough R05 ; Benign prostatic hyperplasia with lower urinary tract symptoms, unspecified morphology N40.1 ; Hypokalemia E87.6 and Eustachian tube dysfunction, unspecified laterality H69.80 [place] [address] [address] Sep, Moderate mixed bipolar I dis order F31.62 [place] [address] [address] Sep, Hypokalemia E87.6 [place] [address] [address] Sep, [place] [address] [address] Sep, Upper respiratory tract infe ction, unspecified type J06.9 [place] [address] [address] Aug, [place] [address] [address] Aug, Dysuria R30.0 [place] [address] [address] Aug, [facility] [address] [id number] [address] [place] [address] Jul, [facility] [address] [id number] [address] [place] [address] Jul, [facility] [address] [id number] [address] [place] [address] Jul, [facility] [address] [id number] [address] [place] [address] Jul, [facility] [address] [id number] [address] [place] [address] Jun, [facility] [address] [id number] [address] [place] [address] Jun, [facility] [address] [id number] [address] [place] [address] Jun, [facility] [address] [id number] [address] [place] [address] May, [facility] [address] [id number] [address] [place] [address] May, Bipolar I disorder, most rec ent episode (or current) mixed, moderate 296.62 [facility] [address] [facility] [id number] [address] [place] [address] May, [facility] [address] [id number] [address] [place] [address] May, Bipolar I disorder, most rec ent episode (or current) mixed, moderate 296.62 and Major depressive disorder, recurrent episode, severe, specified as with psychotic behavior 296.34 [facility] [address] [id number] [address] [place] [address] May, Bipolar I disorder, most rec ent episode (or current) mixed, moderate 296.62 [facility] [address] [facility] [id number] [address] [place] [address] May, [facility] [address] [id number] [address] [place] [address] Apr, [facility] [address] [id number] [address] [place] [address] Apr, [facility] [address] [facility] [id number] [address] [place] [address] Apr, Unspecified disorder of kidn ey and ureter 593.9 and Diabetes mellitus type 2, uncontrolled 250.02 [facility] [address] [id number] [address] [place] [address] Apr, [facility] [address] [id number] [address] [place] [address] Apr, [facility] [address] [facility] [id number] [address] [place] [address] Apr, [facility] [address] [facility] [id number] [address] [place] [address] Apr, [facility] [address] [facility] [id number] [address] [place] [address] Apr, Diabetes mellitus type II, u ncontrolled 250.02 [facility] [address] [facility] [id number] [address] [place] [address] Apr, [facility] [address] [facility] [id number] [address] [place] [address] Mar, [facility] [address] [facility] [id number] [address] [place] [address] Mar, [facility] [address] [facility] [id number] [address] [place] [address] Mar, [facility] [address] [facility] [id number] [address] [place] [address] Mar, Major depressive disorder, r ecurrent episode, severe, specified as with psychotic behavior 296.34 and Bipolar I disorder, most recent episode (or current) mixed, moderate 296.62 [facility] [address] [id number] [address] [place] [address] Mar, Diabetes 250.00 ; Anuria 788 .5 ; Nausea and vomiting 787.01 and Diarrhea 787.91 [facility] [address] [place] [id number] [address] [place] [address] Mar, Diabetes 250.00 [facility] [address] [address] Mar, [facility] [address] [address] Mar, Diabetes 250.00 [facility] [address] [address] Mar, [facility] [address] [address] Mar, [facility] [address] [address] Mar, [facility] [address] [address] Mar, [facility] [address] [address] Mar, Bipolar I disorder, most rec ent episode (or current) mixed, moderate 296.62 and Major depressive disorder, recurrent episode, severe, specified as with psychotic behavior 296.34 [facility] [address] [address] Mar, Magnesium deficiency 275.2 ; Hypokalemia 276.8 ; Nausea & vomiting 787.01 and Diabetes mellitus type 2, uncontrolled 250.02 [facility] [address] [address] Feb, [facility] [address] [address] Feb, Bipolar I disorder, most rec ent episode (or current) mixed, moderate 296.62 [facility] [address] [address] Feb, Nausea and vomiting 787.01 ; Left elbow pain 719.42 ; Anuria 788.5 and Diabetes 250.00 [facility] [address] [address] Feb, [facility] [address] [address] Feb, Hypopotassemia 276.8 and Hyp okalemia 276.8 [place] [address] [address] Feb, Hypopotassemia 276.8 and Hyp okalemia 276.8 [place] [address] [address] Feb, Seborrheic keratoses 702.19 [place] [address] [address] Feb, Hypopotassemia 276.8 and Low magnesium levels 275.2 [place] [address] [address] January, [place] [address] [address] January, [facility] [address] [address] January, [facility] [address] [address] January, Scalp lesion 709.9 [facility] [address] [address] January, [place] [address] [address] Dec, Tear of medial cartilage or meniscus of knee, current 836.0 and Chondromalacia 733.92 [facility] [address] [address] Dec, [facility] [address] [id number] [address] [place] [address], [place] [address] Dec, [facility] [address] [id number] [address] [place] [address], [place] [address] 28 Dec, 2014 Squamous cell carcinoma, 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 [facility] [address] [id number] [address] [place] [address], [place] [address] 14 Dec, 2014 [facility] [address] [id number] [address] [place] [address], [place] [address] 13 Dec, 2014 [facility] [address] [id number] [address] [place] [address], [place] [address] Nov, [facility] [address] [id number] [address] [place] [address], [place] [address] Nov, [facility] [address] [id number] [address] [place] [address], [place] [address] Nov, [facility] [address] [id number] [address] [place] [address], [place] [address] Nov, [facility] [address] [id number] [address] [place] [address], [place] [address] Nov, [facility] [address] [id number] [address] [place] [address], [place] [address] Nov, [facility] [address] [id number] [address] [place] [address], [place] [address] Nov, [facility] [address] [id number] [address] [place] [address], [place] [address] Nov, [facility] [address] [id number] [address] [place] [address], [place] [address] Nov, [facility] [address] [id number] [address] [place] [address], [place] [address] Nov, [facility] [address] [id number] [address] [place] [address], [place] [address] Nov, [facility] [address] [id number] [address] [place] [address], [place] [address] Nov, [facility] [address] [id number] [address] [place] [address], [place] [address] Oct, 2014 [facility] [address] [id number] [address] [place] [address], [place] [address] Oct, 2014 [facility] [address] [id number] [address] [place] [address], [place] [address] Oct, 2014 [facility] [address] [id number] [address] [place] [address], [place] [address] Oct, 2014 [facility] [address] [id number] [address] [place] [address], [place] [address] Oct, 2014 [facility] [address] [id number] [address] [place] [address], [place] [address] Oct, 2014 [facility] [address] [id number] [address] [place] [address], [place] [address] Oct, 2014 [facility] [address] [id number] [address] [place] [address], [place] [address] Oct, [facility] [address] [id number] [address] [place] [address], [place] [address] Oct, [facility] [address] [id number] [address] [place] [address], [place] [address] Sep, [facility] [address] [id number] [address] [place] [address], [place] [address] Sep, [facility] [address] [id number] [address] [place] [address], [place] [address] Sep, [facility] [address] [id number] [address] [place] [address], [place] [address] Sep, [facility] [address] [id number] [address] [place] [address], [place] [address] Sep, [facility] [address] [id number] [address] [place] [address], [place] [address] Sep, [facility] [address] [id number] [address] [place] [address], [place] [address] Sep, [facility] [address] [id number] [address] [place] [address], [place] [address] Sep, [facility] [address] [id number] [address] [place] [address], [place] [address] Sep, [facility] [address] [id number] [address] [place] [address], [place] [address] Sep, [facility] [address] [id number] [address] [place] [address], [place] [address] Sep, [facility] [address] [id number] [address] [place] [address], [place] [address] Sep, [facility] [address] [id number] [address] [place] [address], [place] [address] Sep, [facility] [address] [id number] [address] [place] [address], [place] [address] Sep, [facility] [address] [id number] [address] [place] [address], [place] [address] Sep, [facility] [address] [id number] [address] [place] [address], [place] [address] Sep, [facility] [address] [id number] [address] [place] [address], [place] [address] Aug, [facility] [address] [id number] [address] [place] [address], [place] [address] Aug, [facility] [address] [id number] [address] [place] [address], [place] [address] Aug, [facility] [address] [id number] [address] [place] [address], [place] [address] Aug, [facility] [address] [id number] [address] [place] [address], [place] [address] Aug, [facility] [address] [id number] [address] [place] [address] Aug, [facility] [address] [id number] [address] [place] [address] Aug, [facility] [address] [id number] [address] [place] [address] Aug, [facility] [address] [id number] [address] [place] [address], [place] [address] Aug, [facility] [address] [id number] [address] [place] [address], [place] [address] Aug, [facility] [address] [id number] [address] [place] [address], [place] [address] Aug, [facility] [place] [address] [place], [place] [id number] Aug, [facility] [address] [id number] [address] [place] [address], [place] [address] Aug, [facility] [address] [id number] [address] [place] [address], [place] [address] Aug, [facility] [address] [id number] [address] [place] [address], [place] [address] Aug, [facility] [address] [id number] [address] [place] [address], [place] [address] Aug, [facility] [address] [id number] [address] [place] [address], [place] [address] Aug, [facility] [address] [id number] [address] [place] [address], [place] [address] Aug, [facility] [address] [id number] [address] [place] [address], [place] [address] Aug, [facility] [address] [id number] [address] [place] [address], [place] [address] 08 Aug, 2014 [facility] [address] [id number] [address] [place] [address], [place] [address] Aug, [facility] [address] [id number] [address] [place] [address], [place] [address] Aug, [facility] [address] [id number] [address] [place] [address], [place] [address] Aug, [facility] [address] [id number] [address] [place] [address], [place] [address] Aug, [facility] [address] [id number] [address] [place] [address], [place] [address] Aug, [facility] [address] [id number] [address] [place] [address], [place] [address] Aug, [facility] [address] [id number] [address] [place] [address], [place] [address] Aug, [facility] [address] [id number] [address] [place] [address], [place] [address] Aug, [facility] [address] [id number] [address] [place] [address], [place] [address] Aug, [facility] [address] [id number] [address] [place] [address], [place] [address] Aug, [facility] [address] [id number] [address] [place] [address], [place] [address] Jul, [facility] [address] [id number] [address] [place] [address], [place] [address] Jul, [facility] [address] [id number] [address] [place] [address], [place] [address] Jul, [facility] [address] [id number] [address] [place] [address], [place] [address] Jul, [facility] [address] [id number] [address] [place] [address], [place] [address] Jul, [facility] [address] [id number] [address] [place] [address], [place] [address] Jul, [facility] [address] [id number] [address] [place] [address], [place] [address] Jul, [facility] [address] [id number] [address] [place] [address], [place] [address] Jul, [facility] [address] [id number] [address] [place] [address], [place] [address] Jul, [facility] [address] [id number] [address] [place] [address], [place] [address] Jul, [facility] [address] [id number] [address] [place] [address], [place] [address] Jun, [facility] [address] [id number] [address] [place] [address], [place] [address] Jun, [facility] [address] [id number] [address] [place] [address], [place] [address] Jun, [facility] [address] [id number] [address] [place] [address], [place] [address] Jun, [facility] [address] [id number] [address] [place] [address], [place] [address] Jun, [facility] [address] [id number] [address] [place] [address], [place] [address] Jun, [facility] [address] [id number] [address] [place] [address], [place] [address] Jun, [facility] [address] [id number] [address] [place] [address], [place] [address] Jun, [facility] [address] [id number] [address] [place] [address], [place] [address] Jun, [facility] [address] [id number] [address] [place] [address], [place] [address] Jun, [facility] [address] [id number] [address] [place] [address], [place] [address] May, [facility] [address] [id number] [address] [place] [address], [place] [address] 29 Sep, 2013 [facility] [address] [id number] [address] [place] [address], [place] [address] 26 Sep, 2013 [facility] [address] [id number] [address] [place] [address], [place] [address] 26 Sep, 2013 [facility] [address] [id number] [address] [place] [address], [place] [address] 17 Sep, 2013 [facility] [address] [id number] [address] [place] [address], [place] [address] 17 Sep, 2013 [facility] [address] [id number] [address] [place] [address], [place] [address] 15 Sep, 2013 [facility] [address] [id number] [address] [place] [address], [place] [address] 15 May, 2013 [facility] [address] [id number] [address] [place] [address], [place] [address] 15 May, 2013 [facility] [address] [id number] [address] [place] [address], [place] [address] 15 May, 2013 [facility] [address] [id number] [address] [place] [address], [place] [address] 10 May, 2013 [facility] [address] [id number] [address] [place] [address], [place] [address] 10 May, 2013 [facility] [address] [id number] [address] [place] [address], [place] [address] 09 May, 2013 [facility] [address] [id number] [address] [place] [address], [place] [address] 09 Sep, 2013 [facility] [address] [id number] [address] [place] [address], [place] [address] 04 May, 2013 [facility] [address] [id number] [address] [place] [address], [place] [address] 04 May, 2013 [facility] [address] [id number] [address] [place] [address], [place] [address] 30 Apr, 2013 [facility] [address] [id number] [address] [place] [address], [place] [address] Apr, [facility] [address] [id number] [address] [place] [address] Apr, [facility] [address] [id number] [address] [place] [address], [place] [address] Apr, [facility] [address] [id number] [address] [place] [address], [place] [address] Apr, [facility] [address] [id number] [address] [place] [address], [place] [address] Apr, [facility] [address] [id number] [address] [place] [address], [place] [address] Apr, [facility] [address] [id number] [address] [place] [address], [place] [address] Apr, [facility] [address] [id number] [address] [place] [address], [place] [address] Apr, [facility] [address] [id number] [address] [place] [address], [place] [address] Apr, [facility] [address] [id number] [address] [place] [address], [place] [address] Apr, [facility] [address] [id number] [address] [place] [address], [place] [address] Apr, [facility] [address] [id number] [address] [place] [address], [place] [address] Apr, [facility] [address] [id number] [address] [place] [address], [place] [address] Apr, [facility] [address] [id number] [address] [place] [address], [place] [address] Apr, [facility] [address] [id number] [address] [place] [address], [place] [address] Mar, [facility] [address] [id number] [address] [place] [address], [place] [address] Mar, [facility] [address] [id number] [address] [place] [address] Mar, 2013 [facility] [address] [id number] [address] [place] [address] Mar, 2013 [facility] [address] [id number] [address] [place] [address], [place] [address] Mar, 2013 [facility] [address] [id number] [address] [place] [address], [place] [address] Mar, 2013 [facility] [address] [id number] [address] [place] [address], [place] [address] Mar, 2013 [facility] [address] [id number] [address] [place] [address], [place] [address] Mar, 2013 [facility] [address] [id number] [address] [place] [address], [place] [address] Mar, 2013 [facility] [address] [id number] [address] [place] [address], [place] [address] Mar, 2013 [facility] [address] [id number] [address] [place] [address], [place] [address] Mar, 2013 [facility] [address] [id number] [address] [place] [address], [place] [address] Mar, 2013 [facility] [address] [id number] [address] [place] [address], [place] [address] Mar, 2013 [facility] [address] [id number] [address] [place] [address], [place] [address] Mar, 2013 [facility] [address] [id number] [address] [place] [address], [place] [address] Mar, 2013 [facility] [address] [id number] [address] [place] [address], [place] [address] Mar, 2013 [facility] [address] [id number] [address] [place] [address], [place] [address] Mar, 2013 [facility] [address] [id number] [address] [place] [address], [place] [address] Mar, [facility] [address] [id number] [address] [place] [address] Feb, [facility] [address] [id number] [address] [place] [address] Feb, [facility] [address] [id number] [address] [place] [address] Feb, [facility] [address] [id number] [address] [place] [address], [place] [address] Feb, [facility] [address] [id number] [address] [place] [address] Feb, [facility] [address] [id number] [address] [place] [address], [place] [address] Feb, [facility] [address] [id number] [address] [place] [address], [place] [address] Feb, [facility] [address] [id number] [address] [place] [address], [place] [address] Feb, [facility] [address] [id number] [address] [place] [address], [place] [address] Feb, [facility] [address] [id number] [address] [place] [address], [place] [address] Feb, [facility] [address] [id number] [address] [place] [address], [place] [address] Feb, [facility] [address] [id number] [address] [place] [address], [place] [address] Feb, [facility] [address] [id number] [address] [place] [address], [place] [address] Feb, [facility] [address] [id number] [address] [place] [address], [place] [address] Feb, [facility] [address] [id number] [address] [place] [address], [place] [address] January, [facility] [address] [id number] [address] [place] [address], [place] [address] January, [facility] [address] [id number] [address] [place] [address] January, [facility] [address] [id number] [address] [place] [address], [place] [address] January, [facility] [address] [id number] [address] [place] [address], [place] [address] January, [facility] [address] [id number] [address] [place] [address], [place] [address] January, [facility] [address] [id number] [address] [place] [address], [place] [address] January, [facility] [address] [id number] [address] [place] [address], [place] [address] January, [facility] [address] [id number] [address] [place] [address], [place] [address] January, [facility] [address] [id number] [address] [place] [address], [place] [address] January, [facility] [address] [id number] [address] [place] [address], [place] [address] January, [facility] [address] [id number] [address] [place] [address], [place] [address] January, [facility] [address] [id number] [address] [place] [address], [place] [address] January, [facility] [address] [id number] [address] [place] [address], [place] [address] January, [facility] [address] [id number] [address] [place] [address], [place] [address] Dec, [facility] [address] [id number] [address] [place] [address], [place] [address] Dec, [facility] [address] [id number] [address] [place] [address], [place] [address] Dec, [facility] [address] [id number] [address] [place] [address] Dec, [facility] [address] [id number] [address] [place] [address] Dec, [facility] [address] [id number] [address] [place] [address] Dec, [facility] [address] [id number] [address] [place] [address], [place] [address] Dec, [facility] [address] [id number] [address] [place] [address], [place] [address] Dec, [facility] [address] [id number] [address] [place] [address], [place] [address] Dec, [facility] [address] [id number] [address] [place] [address], [place] [address] Dec, [facility] [address] [id number] [address] [place] [address], [place] [address] Nov, [facility] [address] [id number] [address] [place] [address], [place] [address] Nov, [facility] [address] [id number] [address] [place] [address], [place] [address] Nov, [facility] [address] [id number] [address] [place] [address], [place] [address] Nov, [facility] [address] [id number] [address] [place] [address], [place] [address] Nov, [facility] [address] [id number] [address] [place] [address], [place] [address] Nov, [facility] [address] [id number] [address] [place] [address], [place] [address] Nov, [facility] [address] [id number] [address] [place] [address], [place] [address] 05 Nov, 2013 [facility] [address] [id number] [address] [place] [address], [place] [address] Nov, [facility] [address] [id number] [address] [place] [address], [place] [address] Nov, [facility] [address] [id number] [address] [place] [address], [place] [address] Oct, [facility] [address] [id number] [address] [place] [address], [place] [address] Oct, [facility] [address] [id number] [address] [place] [address], [place] [address] Oct, [facility] [address] [id number] [address] [place] [address], [place] [address] Oct, [facility] [address] [id number] [address] [place] [address], [place] [address] Oct, [facility] [address] [id number] [address] [place] [address], [place] [address] Oct, [facility] [address] [id number] [address] [place] [address], [place] [address] Oct, [facility] [address] [id number] [address] [place] [address], [place] [address] Oct, [facility] [address] [id number] [address] [place] [address], [place] [address] Oct, [facility] [address] [id number] [address] [place] [address], [place] [address] Oct, 2013 [facility] [address] [id number] [address] [place] [address], [place] [address] Oct, [facility] [address] [id number] [address] [place] [address], [place] [address] Oct, [facility] [address] [id number] [address] [place] [address], [place] [address] Oct, [facility] [address] [id number] [address] [place] [address], [place] [address] Oct, [facility] [address] [id number] [address] [place] [address], [place] [address] Sep, [facility] [address] [id number] [address] [place] [address], [place] [address] Sep, [facility] [address] [id number] [address] [place] [address], [place] [address] Sep, [facility] [address] [id number] [address] [place] [address], [place] [address] Sep, [facility] [address] [id number] [address] [place] [address], [place] [address] Sep, [facility] [address] [id number] [address] [place] [address], [place] [address] Sep, [facility] [address] [id number] [address] [place] [address], [place] [address] Sep, [facility] [address] [id number] [address] [place] [address], [place] [address] Sep, [facility] [address] [id number] [address] [place] [address], [place] [address] Sep, [facility] [address] [id number] [address] [place] [address], [place] [address] Sep, [facility] [address] [id number] [address] [place] [address], [place] [address] Aug, [facility] [address] [id number] [address] [place] [address], [place] [address] Aug, [facility] [address] [id number] [address] [place] [address], [place] [address] Jul, [facility] [address] [id number] [address] [place] [address], [place] [address] Jul, [facility] [address] [id number] [address] [place] [address], [place] [address] Jul, [facility] [address] [id number] [address] [place] [address], [place] [address] Jul, [facility] [address] [id number] [address] [place] [address], [place] [address] Jul, [facility] [address] [id number] [address] [place] [address], [place] [address] Jul, [facility] [address] [id number] [address] [place] [address], [place] [address] Jul, [facility] [address] [id number] [address] [place] [address], [place] [address] Jul, [facility] [address] [id number] [address] [place] [address], [place] [address] Jul, [facility] [address] [id number] [address] [place] [address], [place] [address] Jul, [facility] [address] [id number] [address] [place] [address], [place] [address] Jul, [facility] [address] [id number] [address] [place] [address], [place] [address] Jul, [facility] [address] [id number] [address] [place] [address], [place] [address] Jul, [facility] [address] [id number] [address] [place] [address], [place] [address] Jul, [facility] [address] [id number] [address] [place] [address], [place] [address] Jul, [facility] [address] [id number] [address] [place] [address], [place] [address] Jul, [facility] [address] [id number] [address] [place] [address], [place] [address] Jul, [facility] [address] [id number] [address] [place] [address], [place] [address] Jul, [facility] [address] [id number] [address] [place] [address], [place] [address] Jul, [facility] [address] [id number] [address] [place] [address], [place] [address] 16 Jun, 2012 [facility] [address] [id number] [address] [place] [address], [place] [address] 16 Jun, 2012 [facility] [address] [id number] [address] [place] [address], [place] [address] 16 Jun, 2012 [facility] [address] [id number] [address] [place] [address], [place] [address] 16 Jun, 2012 [facility] [address] [id number] [address] [place] [address], [place] [address] 16 Jun, 2012 [facility] [address] [id number] [address] [place] [address], [place] [address] 16 Jun, 2012 [facility] [address] [id number] [address] [place] [address], [place] [address] 10 Jun, 2012 [facility] [address] [id number] [address] [place] [address], [place] [address] 10 Jun, 2012 [facility] [address] [id number] [address] [place] [address], [place] [address] 09 Jun, 2012 [facility] [address] [id number] [address] [place] [address], [place] [address] 09 Jun, 2012 [facility] [address] [id number] [address] [place] [address], [place] [address] Jun, 2012 [facility] [address] [id number] [address] [place] [address], [place] [address] 26 May, 2012 [facility] [address] [id number] [address] [place] [address], [place] [address] 25 Sep, 2012 [facility] [address] [id number] [address] [place] [address], [place] [address] 19 Sep, 2012 [facility] [address] [id number] [address] [place] [address], [place] [address] 17 Sep, 2012 [facility] [address] [id number] [address] [place] [address], [place] [address] May, [facility] [address] [id number] [facility] [place] [address] May, [facility] [address] [id number] [address] [place] [address], [place] [address] May, [facility] [address] [id number] [address] [place] [address], [place] [address] May, [facility] [address] [id number] [address] [place] [address], [place] [address] Apr, [facility] [address] [id number] [address] [place] [address], [place] [address] Apr, [facility] [address] [id number] [address] [place] [address], [place] [address] Apr, [facility] [address] [id number] [address] [place] [address], [place] [address] Apr, [facility] [address] [id number] [address] [place] [address], [place] [address] Apr, [facility] [address] [id number] [address] [place] [address], [place] [address] Mar, [facility] [address] [id number] [address] [place] [address], [place] [address] Mar, [facility] [address] [id number] [address] [place] [address], [place] [address] Mar, [facility] [address] [id number] [address] [place] [address], [place] [address] Mar, [facility] [address] [id number] [address] [place] [address], [place] [address] Mar, [facility] [address] [id number] [address] [place] [address], [place] [address] Mar, [facility] [address] [id number] [address] [place] [address], [place] [address] Mar, [facility] [address] [id number] [address] [place] [address], [place] [address] Mar, [facility] [address] [id number] [address] [place] [address], [place] [address] Feb, [facility] [address] [id number] [address] [place] [address], [place] [address] Feb, [facility] [address] [id number] [address] [place] [address], [place] [address] January, [facility] [address] [id number] [address] [place] [address], [place] [address] January, [facility] [address] [id number] [address] [place] [address], [place] [address] Dec, [facility] [address] [id number] [address] [place] [address], [place] [address] Dec, [facility] [address] [id number] [address] [place] [address], [place] [address] Nov, [facility] [address] [id number] [address] [place] [address], [place] [address] Nov, [facility] [address] [id number] [address] [place] [address], [place] [address] Nov, [facility] [address] [id number] [address] [place] [address], [place] [address] Nov, [facility] [address] [id number] [address] [place] [address], [place] [address] Oct, [facility] [address] [id number] [address] [place] [address], [place] [address] Oct, [facility] [address] [id number] [address] [place] [address], [place] [address] Oct, [facility] [address] [id number] [address] [place] [address], [place] [address] Oct, [facility] [address] [id number] [address] [place] [address], [place] [address] 16 Oct, 2012 [facility] [address] [id number] [address] [place] [address], [place] [address] 14 Oct, 2012 [facility] [address] [id number] [address] [place] [address], [place] [address] 08 Oct, 2012 [facility] [address] [id number] [address] [place] [address], [place] [address] 07 Oct, 2012 [facility] [address] [id number] [address] [place] [address], [place] [address] 03 Oct, 2012 [facility] [address] [id number] [address] [place] [address], [place] [address] 30 Sep, 2012 [facility] [address] [id number] [address] [place] [address], [place] [address] Sep, [facility] [address] [id number] [address] [place] [address], [place] [address] Sep, [facility] [address] [id number] [address] [place] [address], [place] [address] Sep, [facility] [address] [id number] [address] [place] [address], [place] [address] Sep, [facility] [address] [id number] [address] [place] [address], [place] [address] Sep, [facility] [address] [id number] [address] [place] [address], [place] [address] Sep, [facility] [address] [id number] [address] [place] [address], [place] [address] Sep, [facility] [address] [id number] [address] [place] [address], [place] [address] Aug, [facility] [address] [id number] [address] [place] [address], [place] [address] Aug, [facility] [address] [id number] [address] [place] [address], [place] [address] Aug, [facility] [address] [id number] [address] [place] [address], [place] [address] Aug, [facility] [address] [id number] [address] [place] [address], [place] [address] Aug, [facility] [address] [id number] [address] [place] [address], [place] [address] Aug, [facility] [address] [id number] [address] [place] [address], [place] [address] Aug, [facility] [address] [id number] [address] [place] [address], [place] [address] Aug, [facility] [address] [id number] [address] [place] [address], [place] [address] Jul, [facility] [address] [id number] [address] [place] [address], [place] [address] Jul, [facility] [address] [id number] [address] [place] [address], [place] [address] Jul, [facility] [address] [id number] [address] [place] [address], [place] [address] Jul, [facility] [address] [id number] [address] [place] [address], [place] [address] Jul, [facility] [address] [id number] [address] [place] [address], [place] [address] Jul, [facility] [address] [id number] [address] [place] [address], [place] [address] Jun, [facility] [address] [id number] [address] [place] [address], [place] [address] Jun, [facility] [address] [id number] [address] [place] [address], [place] [address] Jun, [facility] [address] [id number] [address] [place] [address], [place] [address] Jun, [facility] [address] [id number] [address] [place] [address], [place] [address] Jun, [facility] [address] [id number] [address] [place] [address], [place] [address] Jun, [facility] [address] [id number] [address] [place] [address], [place] [address] Jun, [facility] [address] [id number] [address] [place] [address], [place] [address] Jun, [facility] [address] [id number] [address] [place] [address], [place] [address] Jun, [facility] [address] [id number] [address] [place] [address], [place] [address] 26 May, 2012 [facility] [address] [id number] [address] [place] [address], [place] [address] 24 May, 2012 [facility] [address] [id number] [address] [place] [address], [place] [address] May, [facility] [address] [id number] [address] [place] [address], [place] [address] Apr, [facility] [address] [id number] [address] [place] [address], [place] [address] Apr, [facility] [address] [id number] [address] [place] [address], [place] [address] Apr, [facility] [address] [id number] [address] [place] [address], [place] [address] Apr, [facility] [address] [id number] [address] [place] [address], [place] [address] Apr, [facility] [address] [id number] [address] [place] [address], [place] [address] Apr, [facility] [address] [id number] [address] [place] [address], [place] [address] Mar, [facility] [address] [id number] [address] [place] [address], [place] [address] Mar, [facility] [address] [id number] [address] [place] [address], [place] [address] Mar, [facility] [address] [id number] [address] [place] [address], [place] [address] Mar, [facility] [address] [id number] [address] [place] [address], [place] [address] Feb, [facility] [address] [id number] [address] [place] [address], [place] [address] Feb, [facility] [address] [id number] [address] [place] [address], [place] [address] Feb, [facility] [address] [id number] [address] [place] [address], [place] [address] Feb, [facility] [address] [id number] [address] [place] [address], [place] [address] Feb, [facility] [address] [id number] [address] [place] [address], [place] [address] January, [facility] [address] [id number] [address] [place] [address], [place] [address] January, [facility] [address] [id number] [address] [place] [address], [place] [address] January, [facility] [address] [id number] [address] [place] [address], [place] [address] January, [facility] [address] [id number] [address] [place] [address], [place] [address] January, [facility] [address] [id number] [address] [place] [address], [place] [address] January, [facility] [address] [id number] [address] [place] [address], [place] [address] Dec, [facility] [address] [id number] [address] [place] [address], [place] [address] Dec, [facility] [address] [id number] [address] [place] [address], [place] [address] Dec, [facility] [address] [id number] [address] [place] [address], [place] [address] 09 Dec, 2011 [facility] [address] [id number] [address] [place] [address], [place] [address] 06 Dec, 2011 [facility] [address] [id number] [address] [place] [address], [place] [address] 27 Nov, 2011 [facility] [address] [id number] [address] [place] [address], [place] [address] 14 Nov, 2011 [facility] [address] [id number] [address] [place] [address], [place] [address] 12 Nov, 2011 [facility] [address] [id number] [address] [place] [address], [place] [address] 07 Nov, 2011 [facility] [address] [id number] [address] [place] [address], [place] [address] 29 Oct, 2011 [facility] [address] [id number] [address] [place] [address], [place] [address] 28 Oct, 2011 [facility] [address] [id number] [address] [place] [address], [place] [address] 24 Oct, 2011 [facility] [address] [id number] [address] [place] [address], [place] [address] 13 Oct, 2011 [facility] [address] [id number] [address] [place] [address], [place] [address] 08 Oct, 2011 [facility] [address] [id number] [address] [place] [address], [place] [address] 31 Sep, 2011 [facility] [address] [id number] [address] [place] [address], [place] [address] 30 Sep, 2011 [facility] [address] [id number] [address] [place] [address], [place] [address] 12 Sep, 2011 [facility] [address] [id number] [address] [place] [address], [place] [address] 10 Sep, 2011 [facility] [address] [id number] [address] [place] [address], [place] [address] Sep, [facility] [address] [id number] [address] [place] [address], [place] [address] Sep, [facility] [address] [id number] [address] [place] [address], [place] [address] Aug, [facility] [address] [id number] [address] [place] [address], [place] [address] Aug, [facility] [address] [id number] [address] [place] [address], [place] [address] Aug, [facility] [address] [id number] [address] [place] [address], [place] [address] Jul, [facility] [address] [id number] [address] [place] [address], [place] [address] Jul, [facility] [address] [id number] [address] [place] [address], [place] [address] Jul, [facility] [address] [id number] [address] [place] [address], [place] [address] Jul, [facility] [address] [id number] [address] [place] [address], [place] [address] Jun, [facility] [address] [id number] [address] [place] [address], [place] [address] Jun, [facility] [address] [id number] [address] [place] [address] Jun, [facility] [address] [id number] [address] [place] [address] Jun, [facility] [address] [id number] [address] [place] [address], [place] [address] Jun, [facility] [address] [id number] [address] [place] [address], [place] [address] Jun, [facility] [address] [id number] [address] [place] [address], [place] [address] Mar, [facility] [address] [id number] [address] [place] [address], [place] [address] 18 Dec, 2010 [facility] [address] [id number] [address] [place] [address], [place] [address] 11 Dec, 2010 [facility] [address] [id number] [address] [place] [address], [place] [address] 18 Nov, 2010 [facility] [address] [id number] [address] [place] [address], [place] [address] 16 Nov, 2010 [facility] [address] [id number] [address] [place] [address], [place] [address] 10 Sep, 2010 [facility] [address] [id number] [address] [place] [address], [place] [address] 31 Aug, 2010 [facility] [address] [id number] [address] [place] [address], [place] [address] 29 Aug, 2010 [facility] [address] [id number] [address] [place] [address], [place] [address] 29 Aug, 2010 [facility] [address] [id number] [address] [place] [address], [place] [address] 29 Aug, 2010 [facility] [address] [id number] [address] [place] [address], [place] [address] 27 Aug, 2010 [facility] [address] [id number] [address] [place] [address], [place] [address] 14 Aug, 2010 [facility] [address] [id number] [address] [place] [address], [place] [address] 08 Aug, 2010 [facility] [address] [id number] [address] [place] [address], [place] [address] 08 Aug, 2010 [facility] [address] [id number] [address] [place] [address], [place] [address] 07 Aug, 2010 [facility] [address] [id number] [address] [place] [address], [place] [address] 06 Aug, 2010 [facility] [address] [id number] [address] [place] [address], [place] [address] Aug, [facility] [address] [id number] [address] [place] [address], [place] [address] Aug, [facility] [address] [id number] [address] [place] [address], [place] [address] Jul, [facility] [address] [id number] [address] [place] [address], [place] [address] Jul, [facility] [address] [id number] [address] [place] [address], [place] [address] Jul, [facility] [address] [id number] [address] [place] [address], [place] [address] Jul, [facility] [address] [id number] [address] [place] [address], [place] [address] Jul, [facility] [address] [id number] [address] [place] [address], [place] [address] Jul, [facility] [address] [id number] [address] [place] [address], [place] [address] Jun, [facility] [address] [id number] [address] [place] [address], [place] [address] Jun, [facility] [address] [id number] [address] [place] [address], [place] [address] Jun, [facility] [address] [id number] [address] [place] [address], [place] [address] Jun, [facility] [address] [id number] [address] [place] [address] Apr, [facility] [address] [id number] [address] [place] [address], [place] [address] Mar, [facility] [address] [id number] [address] [place] [address], [place] [address] Feb, [facility] [address] [id number] [address] [place] [address] January, [facility] [address] [id number] [address] [place] [address] 15 Dec, 2009 [facility] [address] [id number] [address] [place] [address] Nov, [facility] [address] [id number] [address] [place] [address] Aug, [facility] [address] [id number] [address] [place] [address] Aug, [facility] [address] [id number] [address] [place] [address] Aug, [facility] [address] [id number] [address] [place] [address] Jul, [facility] [address] [id number] [address] [place] [address] Jul, [facility] [address] [id number] [address] [place] [address] Jul, [facility] [address] [id number] [address] [place] [address] 30 Jun, 2009 [facility] [address] [id number] [address] [place] [address] 29 Jun, 2009 [facility] [address] [id number] [address] [place] [address] Jun, [facility] [address] [id number] [address] [place] [address] Jun, [facility] [address] [id number] [address] [place] [address] Jun, [facility] [address] [id number] [address] [place] [address] Jun, [facility] [address] [id number] [address] [place] [address] Apr, [facility] [address] [id number] [address] [place] [address] Apr, [facility] [address] [id number] [place] [address] Feb, [facility] [address] [facility] [id number] [address] [place] [address] January, [facility] [address] [facility] [id number] [address] [place] [address] Dec, IMMUNIZATIONS No Known Immunizations SOCIAL HISTORY Never Assessed REASON FOR VISIT f/u PLAN OF CARE Activity Details Follow Up 2 Weeks Reason:depression VITAL SIGNS MEDICATIONS Unknown Medications RESULTS No Results PROCEDURES Procedure Date Ordered Result Body Site [facility] VISIT MENTAL HEALTH ESTAB PT Sep 12, 2018 Psychotherapy, patient and family, 45 minutes, established p atient Sep 12, 2018 INSTRUCTIONS MEDICATIONS ADMINISTERED No Known [...] [facility] ([place] ) Surgical History heart cath: CAD w/ [...]
--- OUTSIDE RECORDS SUMMARY | 2020-03-01 18:25 | XMS REPORT ---
Author Michele Fuentes Organization 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 Name Role Phone ROSELINE LUIS Unavailable PROBLEMS Type Condition ICD9-CM Code [id number] Code Onset Dates Condition S tatus SNOMED Code Problem Lymphocytosis D72.820 Active 865477 09 Problem Chronic lymphocytic leukemia C91.10 A ctive 17367073 Problem Eye exam abnormal R93.8 Active 16 2269303 Problem Eustachian tube dysfunction, unspecified laterality H69.80 Active 48928174 Problem Dysuria R30.0 Active 49719729 Problem Cough R05 Active 11286032 Problem Hypokalemia E87.6 Active 08776161 Problem Bilateral primary osteoarthritis of knee M17.0 Active 607107732 Problem Benign prostatic hyperplasia with lower urinary tract symptoms, unspecified morphology N40.1 Active 96987 6007 Problem Retinal edema H35.81 Active 170024 6 Problem DM neuro manif type II E11.49 Active 41977820 Problem Anemia of chronic illness D63.8 Acti ve 771799917 Problem Falling R29.6 Active 653272214 Problem 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 Active 567620339 Problem Mild cognitive impairment G31.84 Acti ve 664790000 Problem Other chronic pain G89.29 Active 8 9520149 Problem Diabetes E11.9 Active 50164329 Problem Leukocytosis D72.829 Active 6104774 06 Problem Chronic pain G89.29 Active 4930548 1 Problem Pure hypercholesterolemia E78.00 Acti ve 805676590 Problem Bipolar disorder, in partial remission, most rec ent episode depressed F31.75 Active 24640829 Problem Other iron deficiency anemia D50.8 A ctive 77465196 Problem Primary osteoarthritis of right knee M17.11 Active [id number] Problem Insomnia, unspecified type G47.00 Act sharon 449780356 Problem Anxiety F41.9 Active 76530488 Problem Reactive airway disease J45.909 Active 351500019110 Problem Bipolar I disorder, most recent episode (or curr ent) mixed, moderate F31.62 Active 93461951 Problem Diabetic polyneuropathy associated with type 2 d iabetes mellitus E11.42 Active 14491155 Problem Polyneuropathy associated with underlying disease G63 Active 741139113 Problem Morbid obesity E66.01 Active 19528 6002 Problem Essential hypertension I10 Active 80350407 ALLERGIES No Information ENCOUNTERS Encounter Location Date Diagnosis [facility] [address] [facility] [place] [id number] [address] [place] [address] Aug, [facility] [address] [facility] [place] [facility] [id number] [address] [place] [address] Aug, Bipolar I disorder, most rec ent episode (or current) mixed, moderate F31.62 and Mild cognitive impairment G31.84 [place] [address] [place] [id number] [address] [place] [address] Jul, [facility] [address] [place] [id number] [address] [place] [address] Jul, Chronic pain G89.29 [facility] [address] [facility] [place] [facility] [id number] [address] [place] [address] Jul, Bipolar I disorder, most rec ent episode (or current) mixed, moderate F31.62 and Mild cognitive impairment G31.84 [place] [address] [place] [id number] [address] [place] [address] Jul, Bipolar I disorder, most rec ent episode (or current) mixed, moderate F31.62 and MCI (mild cognitive impairment) G31.84 [facility] [address] [facility] [place] [facility] [id number] [address] [place] [address] Jul, [facility] [address] [place] [id number] [address] [place] [address] Jul, [facility] [address] [facility] [place] [id number] [address] [place] [address] Jul, Bipolar I disorder, most rec ent episode (or current) mixed, moderate F31.62 [place] [address] [facility] [place] [facility] [id number] [address] [place] [address] Jul, Chronic pain G89.29 [facility] [address] [facility] [place] [facility] [id number] [address] [place] [address] Jun, Bipolar I disorder, most rec ent episode (or current) mixed, moderate F31.62 [place] [address] [place] [id number] [address] [place] [address] Jun, Pre-procedure lab exam Z01.8 12 [facility] [address] [facility] [place] [facility] [id number] [place] [id number] Jun, [facility] [address] [place] [id number] [place] [address] Jun, [facility] [address] [place] [id number] [address] [place] [address] Jun, [facility] [address] [place] [id number] [address] [place] [address] Jun, Forgetfulness R68.89 ; Pre-s yncope R55 ; Localized edema R60.0 ; Other iron deficiency anemia D50.8 and BMI 50.0-59.9, adult Z68.43 [facility] [address] [place] [id number] [address] [place] [address] Jun, Chronic pain G89.29 [facility] [address] [place] [id number] [address] [place] [address] Jun, Chronic pain G89.29 [facility] [address] [facility] [place] [id number] [address] [place] [address] Jun, Bipolar I disorder, most rec ent episode (or current) mixed, moderate F31.62 [facility] [address] [facility] [place] [id number] [address] [place] [address] May, Chronic pain G89.29 [facility] [address] [place] [id number] [address] [place] [address] Apr, [place] [address] [place] [id number] [address] [place] [address] Apr, Chronic pain G89.29 [place] [address] [address] Apr, Primary osteoarthritis of ri ght knee M17.11 [place] [address] [address] Mar, [place] [address] [address] Mar, BMI 50.0-59.9, adult Z68.43 and Bipolar disorder, in partial remission, most recent episode depressed F31.75 [place] [address] [address] Mar, Diabetes E11.9 ; Pure hyperc holesterolemia E78.00 ; Essential hypertension I10 ; Nausea with vomiting, unspecified R11.2 and Headache, unspecified headache type R51 [place] [address] [address] Mar, Bipolar I disorder, most rec ent episode (or current) mixed, moderate F31.62 [place] [address] [address] Mar, Bipolar I disorder, most rec ent episode (or current) mixed, moderate F31.62 [place] [address] [address] Mar, Chronic pain G89.29 [place] [address] [place] [id number] [address] [place] [address] Mar, Bipolar I disorder, most rec ent episode (or current) mixed, moderate F31.62 [place] [address] [place] [id number] [place] [address] Feb, Bipolar I disorder, most rec ent episode (or current) mixed, moderate F31.62 [place] [address] [place] [address] 14 Feb, [address] [facility] [address] [facility] [place] [facility] [id number] [address] [place] [address] Feb, Decubitus ulcer of right josselin t, stage 3 L89.893 and BMI 50.0-59.[address], [address] [facility] [address] [facility] [place] [facility] [id number] [address] [place] [address] Feb, Bipolar I disorder, most rec ent episode (or current) mixed, moderate F31.62 [facility] [address] [facility] [place] [facility] [id number] [address] [place] [address] Feb, [facility] [address] [place] [id number] [address] [place] [address] January, [facility] [address] [place] [id number] [address] [place] [address] January, Chronic pain G89.29 [facility] [address] [facility] [place] [facility] [id number] [address] [place] [address] January, Bipolar I disorder, most rec ent episode (or current) mixed, moderate F31.62 [facility] [address] [place] [id number] [address] [place] [address] January, Bipolar I disorder, most rec ent episode (or current) mixed, moderate F31.62 [facility] [address] [place] [id number] [address] [place] [address] Dec, Bipolar I disorder, most rec ent episode (or current) mixed, moderate F31.62 and BMI 50.0-59.9, adult Z68.43 [facility] [address] [facility] [place] [facility] [id number] [address] [place] [address] Dec, Bipolar I disorder, most rec ent episode (or current) mixed, moderate F31.62 [facility] [address] [place] [id number] [address] [place] [address] Dec, Chronic pain G89.29 [place] [address] [place] [id number] [address] [place] [address] Dec, DM neuro manif type II E11.4 9 ; Right flank pain R10.9 ; halfway current use of opiate analgesic Z79.891 ; Encounter for medication monitoring Z51.81 and BMI 50.0-59.9, adult Z68.43 [place] [address] [place] [id number] [address] [place] [address] Dec, Bipolar I disorder, most rec ent episode (or current) mixed, moderate F31.62 [place] [address] [place] [id number] [place] [address] Nov, Bipolar I disorder, most rec ent episode (or current) mixed, moderate F31.62 [place] [address] [place] [id number] [place] [address] Nov, Chronic pain G89.29 [place] [address] [place] [id number] [place] [address] Nov, Bipolar I disorder, most rec ent episode (or current) mixed, moderate F31.62 [place] [address] [place] [id number] [place] [address] Nov, Hypokalemia E87.6 [place] [address] [place] [id number] [place] [address] Nov, Bipolar I disorder, most rec ent episode (or current) mixed, moderate F31.62 [place] [address] [place] [id number] [place] [address] Oct, Chronic pain G89.29 [place] [address] [place] [id number] [place] [address] Oct, BMI 50.0-59.9, adult Z68.43 and Bipolar I disorder, most recent episode (or current) mixed, moderate F31.62 [place] [address] [place] [id number] [place] [address] Oct, Bipolar I disorder, most rec ent episode (or current) mixed, moderate F31.62 [facility] [address] [id number] [address] [place] [address] Oct, [facility] [address] [id number] [address] [place] [address] Oct, Hypokalemia E87.6 [facility] [address] [facility] [place] [id number] [address] [place] [address] Oct, DM neuro manif type II E11.[address] [facility] [address] [id number] [address] [place] [address] Oct, Bipolar I disorder, most rec ent episode (or current) mixed, moderate F31.62 [facility] [address] [facility] [place] [id number] [address] [place] [address] Oct, Bipolar I disorder, most rec ent episode (or current) mixed, moderate F31.62 [facility] [address] [facility] [place] [id number] [address] [place] [address] 14 Oct, 2017 Hyperkalemia E87.5 ; Falling R29.6 ; BMI 50.0-59.9, adult Z68.43 and Acute left ankle pain M25.572 [facility] [address] [facility] [place] [id number] [address] [place] [address] Oct, DM neuro manif type II E11.[address] [facility] [address] [facility] [place] [id number] [address] [place] [address] Oct, [facility] [address] [facility] [place] [id number] [address] [place] [address] Sep, Chronic pain G89.29 [facility] [address] [facility] [place] [facility] [id number] [address] [place] [address] Sep, [facility] [address] [facility] [place] [id number] [address] [place] [address] Sep, Bilateral primary osteoarthr itis of knee M17.0 [place] [address] [place] [id number] [place] [address] 18 Sep, 2017 Generalized edema R60.1 [place] [address] [place] [id number] [place] [address] 16 Sep, 2017 Bipolar I disorder, most rec ent episode (or current) mixed, moderate F31.62 [place] [address] [place] [id number] [place] [address] 15 Sep, 2017 Hypoxia R09.02 ; Other hyper volemia E87.79 ; Diabetes E11.9 ; Retinal edema H35.81 ; Hypokalemia E87.6 ; 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 ; Anemia of chronic illness D63.8 and BMI 50.0- 59.9, adult Z68.43 [place] [address] [place] [id number] [address] [place] [address] Sep, [place] [address] [place] [id number] [place] [address] Sep, Bipolar I disorder, most rec ent episode (or current) mixed, moderate F31.62 [place] [address] [place] [id number] [place] [address] Aug, Chronic pain G89.29 [place] [address] [place] [id number] [place] [address] Aug, Generalized edema R60.1 [place] [address] [place] [id number] [place] [address] Aug, [place] [address] [place] [id number] [place] [address] Aug, [place] [address] [place] [id number] [place] [address] 14 Aug, 2017 Bipolar I disorder, most rec ent episode (or current) mixed, moderate F31.62 [place] [address] [place] [id number] [place] [address] Aug, Bipolar I disorder, most rec ent episode (or current) mixed, moderate F31.62 [place] [address] [place] [id number] [place] [address] Aug, Chronic pain G89.29 [place] [address] [place] [id number] [place] [address] Jul, Bipolar I disorder, most rec ent episode (or current) mixed, moderate F31.62 [place] [address] [place] [id number] [address] [place] [address] Jul, Bipolar I disorder, most rec ent episode (or current) mixed, moderate F31.62 and BMI 60.0-69.9, adult Z68.44 [place] [address] [place] [id number] [place] [address] Jul, Bipolar I disorder, most rec ent episode (or current) mixed, moderate F31.62 [place] [address] [place] [id number] [place] [address] Jul, Chronic pain G89.29 [place] [address] [place] [id number] [place] [address] Jul, Bipolar I disorder, most rec ent episode (or current) mixed, moderate F31.62 [place] [address] [place] [id number] [place] [address] Jun, Polyneuropathy associated wi th underlying disease G63 and Diabetes E11.9 [place] [address] [place] [id number] [place] [address] Jun, Bipolar I disorder, most rec ent episode (or current) mixed, moderate F31.62 [place] [address] [place] [id number] [place] [address] Jun, Chronic pain G89.29 [place] [address] [place] [id number] [place] [address] May, Bipolar I disorder, most rec ent episode (or current) mixed, moderate F31.62 [facility] [address] [id number] [address] [place] [address] 21 May, 2017 Bipolar I disorder, most rec ent episode (or current) mixed, moderate F31.62 [facility] [address] [id number] [address] [place] [address] 20 May, 2017 Diabetic polyneuropathy asso ciated with type [address] [facility] [address] [id number] [address] [place] [address] 18 May, 2017 Bipolar I disorder, most rec ent episode (or current) mixed, moderate F31.62 [facility] [address] [id number] [address] [place] [address] 13 May, 2017 Bipolar I disorder, most rec ent episode (or current) mixed, moderate F31.62 [facility] [address] [id number] [address] [place] [address] May, Chronic pain G89.29 [facility] [address] [id number] [address] [place] [address] 30 Apr, 2017 Bipolar I disorder, most rec ent episode (or current) mixed, moderate F31.62 [facility] [address] [id number] [address] [place] [address] Apr, [facility] [address] [id number] [address] [place] [address] Apr, Chronic pain G89.29 and DM n euro manif type II E11.49 [facility] [address] [id number] [address] [place] [address] Apr, [facility] [address] [id number] [address] [place] [address] Apr, Bipolar I disorder, most rec ent episode (or current) mixed, moderate F31.62 [facility] [address] [id number] [address] [place] [address] 14 Apr, [address] [facility] [address] [place] [id number] [address] [place] [address] Apr, Iliotibial band syndrome, le ft M76.32 [facility] [address] [place] [id number] [address] [place] [address] Apr, Bipolar I disorder, most rec ent episode (or current) mixed, moderate F31.62 [facility] [address] [place] [id number] [address] [place] [address] Mar, Bipolar I disorder, most rec ent episode (or current) mixed, moderate F31.62 [place] [address] [place] [id number] [address] [place] [address] Mar, Bipolar I disorder, most rec ent episode (or current) mixed, moderate F31.62 [place] [address] [place] [id number] [place] [address] Mar, [place] [address] [place] [id number] [place] [address] Mar, Bipolar I disorder, most rec ent episode (or current) mixed, moderate F31.62 [place] [address] [place] [id number] [place] [address] Mar, Chronic pain G89.29 [place] [address] [place] [id number] [place] [address] Mar, Bipolar I disorder, most rec ent episode (or current) mixed, moderate F31.62 [place] [address] [place] [id number] [place] [address] Mar, Bipolar I disorder, most rec ent episode (or current) mixed, moderate F31.62 [place] [address] [place] [id number] [place] [address] Mar, Acute pain of left knee M25. 562 ; Left hip pain M25.552 ; Generalized edema R60.1 and Tongue swelling R22.0 [place] [address] [place] [id number] [place] [address] Mar, [facility] [address] [id number] [address] [place] [address] Feb, Chronic pain G89.29 [facility] [address] [facility] [place] [id number] [address] [place] [address] Feb, Diabetes E11.9 [facility] [address] [facility] [place] [id number] [address] [place] [address] January, Chronic pain G89.29 [facility] [address] [id number] [address] [place] [address] January, [facility] [address] [facility] [place] [id number] [address] [place] [address] January, Bipolar I disorder, most rec ent episode (or current) mixed, moderate F31.62 [facility] [address] [facility] [place] [id number] [address] [place] [address] Dec, Bipolar I disorder, most rec ent episode (or current) mixed, moderate F31.62 [facility] [address] [facility] [place] [id number] [address] [place] [address] Dec, Chronic pain G89.29 [facility] [address] [facility] [place] [id number] [address] [place] [address] Dec, Bipolar I disorder, most rec ent episode (or current) mixed, moderate F31.62 [facility] [address] [facility] [place] [id number] [address] [place] [address] Dec, Diabetes E11.9 ; Essential h ypertension I10 ; Chronic pain G89.29 and Morbid obesity E66.01 [facility] [address] [facility] [place]] [id number] [address] [place] [id number] Dec, [facility] [address] [facility] [place] [id number] [address] [place] [phone] Dec, Bipolar I disorder, most rec ent episode (or current) mixed, moderate F31.62 [facility] [address] [id number] [address] [place] [phone] Dec, Bipolar I disorder, most rec ent episode (or current) mixed, moderate F31.62 [facility] [address] [facility] [place] [id number] [address] [place] [id number] Nov, Chronic pain G89.29 [facility] [address] [id number] [address] [place] [phone] Nov, Bipolar I disorder, most rec ent episode (or current) mixed, moderate F31.62 [facility] [address] [id number] [address] [place] [phone] Nov, [facility] [address] [id number] [address] [place] [phone] Nov, Bipolar I disorder, most rec ent episode (or current) mixed, moderate F31.62 [facility] [address] [facility] [place] [place] [id number] [address] [place] [phone] Nov, Bipolar I disorder, most rec ent episode (or current) mixed, moderate F31.62 [facility] [address] [id number] [address] [place] [phone] Nov, [facility] [address] [facility] [place]] [id number] [address] [place] [phone] Nov, [facility] [address] [facility] [place]] [id number] [address] [place] [phone] Nov, [facility] [address] [facility] [place] [id number] [address] [place] [phone] Oct, Chronic pain G89.29 [facility] [address] [id number] [address] [place] [phone] Oct, Bipolar I disorder, most rec ent episode (or current) mixed, moderate F31.62 [facility] [address] [place] [facility] [id number] [address] [place] [address] Oct, 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 [address] [id number] [address] [place] [phone] [address] Oct, [address] [facility] [address] [facility] [id number] [address] [place] [address] 06 Oct, [address] [facility] [address] [id number] [address] [place] [address] Oct, Bipolar I disorder, most rec ent episode (or current) mixed, moderate F31.62 [facility] [address] [facility] [id number] [address] [place] [address] Sep, Chronic pain G89.29 [facility] [address] [facility] [id number] [address] [place] [address] Sep, Chronic pain G89.29 [facility] [address] [id number] [address] [place] [address] Aug, Chronic pain G89.29 [facility] [address] [facility] [id number] [address] [place] [id number] Jul, [facility] [address] [facility] [id number] [address] [place] [address] Jul, Diabetes E11.9 [facility] [address] [facility] [id number] [address] [place] [address] Jul, Chronic pain G89.29 [facility] [address] [id number] [address] [place] [address] Jul, Bipolar I disorder, most rec ent episode (or current) mixed, moderate F31.62 [facility] [address] [id number] [address] [place] [address] Jun, Bipolar I disorder, most rec ent episode (or current) mixed, moderate F31.62 [facility] [address] [facility] [id number] [address] [place] [address] Jun, [facility] [address] [facility] [id number] [address] [place] [address] Jun, Bipolar I disorder, most rec ent episode (or current) mixed, moderate F31.62 [facility] [address] [facility] [id number] [address] [place] [address] 30 May, 2016 Insomnia, unspecified type G 47.00 [facility] [address] [facility] [id number] [address] [place] [address] May, Bipolar I disorder, most rec ent episode (or current) mixed, moderate F31.62 [facility] [address] [facility]] [id number] [address] [place] [address] May, [facility] [address] [place] [id number] [address] [place] [address] May, Bipolar I disorder, most rec ent episode (or current) mixed, moderate F31.62 [facility] [address] [place] [id number] [address] [place] [address] May, Diabetes E11.9 and Essential hypertension I10 [facility] [address] [facility]] [id number] [address] [place] [address] Apr, Chronic pain G89.29 [facility] [address] [place] [id number] [address] [place] [address] Apr, Bipolar I disorder, most rec ent episode (or current) mixed, moderate F31.62 [facility] [address] [facility]] [id number] [address] [place] [address] Apr, [facility] [address] [facility]] [id number] [address] [place] [address] Apr, [facility] [address] [facility]] [id number] [address] [place] [address] Mar, Chronic pain G89.29 ; Headac he, unspecified headache type R51 ; Neuropathy G62.9 ; Pain of right hip joint M25.551 and Essential hypertension I10 [facility] [address] [facility]] [id number] [address] [place] [address] Mar, Chronic pain G89.29 [facility] [address] [facility] [id number] [address] [place] [address] Mar, Bipolar I disorder, most rec ent episode (or current) mixed, moderate F31.62 [facility] [address] [facility]] [id number] [address] [place] [address] Feb, Bipolar I disorder, most rec ent episode (or current) mixed, moderate F31.62 and Insomnia, unspecified type G47.00 [place] [address] [facility] [id number] [address] [place] [address] Feb, Chronic pain G89.29 [facility] [address] [facility] [id number] [address] [place] [address] Feb, Bipolar I disorder, most rec ent episode (or current) mixed, moderate F31.62 [facility] [address] [facility]] [id number] [address] [place] [address] January, Bipolar I disorder, most rec ent episode (or current) mixed, moderate F31.62 [facility] [address] [facility]] [id number] [address] [place] [address] January, Chronic pain G89.29 [facility] [address] [facility] [id number] [address] [place] [address] January, Chronic pain G89.29 and Esse ntial hypertension I10 [facility] [address] [facility]] [id number] [address] [place] [address] January, Bipolar I disorder, most rec ent episode (or current) mixed, moderate F31.62 [facility] [address] [facility]] [id number] [address] [place] [address] Dec, [facility] [address] [facility]] [id number] [address] [place] [address] Dec, [facility] [address] [place] [id number] [address] [place] [address] Dec, [facility] [address] [address] Dec, [facility] [address] [address] Nov, Reactive airway disease J45. [address] [facility] [address] [address] Nov, [facility] [address] [address] Nov, [facility] [address] [address] Nov, [facility] [address] [address] Nov, [facility] [address] [address] Nov, Onychomycosis B35.1 ; Hammer toe M20.40 ; [place] or callus L84 and DM neuro manif type II E11.49 [facility] [address] [place] [id number] [address] [place] [address] Nov, Chronic pain G89.29 ; Leukoc ytosis D72.[address] [facility] [address] [place] [id number] [address] [place] [address] Nov, [facility] [address] [address] Oct, Bronchitis J40 [facility] [address] [address] Oct, [facility] [address] [address] Oct, [facility] [address] [place] [id number] [place] [address] Oct, Mastoiditis, unspecified lat erality H70.90 and Type 2 diabetes mellitus with complication E11.8 [facility] [address] [facility] [id number] [address] [place] [address] Sep, [facility] [address] [place] [id number] [address] [place] [address] Sep, Dysuria R30.0 ; Cough R05 ; Benign prostatic hyperplasia with lower urinary tract symptoms, unspecified morphology N40.1 ; Hypokalemia E87.6 and Eustachian tube dysfunction, unspecified laterality H69.80 [facility] [address] [place] [id number] [address] [place] [address] Sep, Moderate mixed bipolar I dis order F31.62 [place] [address] [place] [id number] [address] [place] [address] Sep, Hypokalemia E87.6 [place] [address] [facility] [id number] [address] [place] [address] Sep, [facility] [address] [place] [id number] [address] [place] [address] Sep, Upper respiratory tract infe ction, unspecified type J06.9 [facility] [address] [place] [id number] [address] [place] [address] Aug, [facility] [address] [place] [id number] [address] [place] [address] Aug, Dysuria R30.0 [facility] [address] [place] [id number] [address] [place] [address] Aug, [facility] [address] [place] [id number] [address] [place] [address] Jul, [facility] [address] [place] [id number] [address] [place] [address] Jul, [facility] [address] [place] [id number] [address] [place] [address] Jul, [facility] [address] [id number] [address] [place] [address] Jul, [facility] [address] [id number] [address] [place] [address] Jun, [facility] [address] [id number] [address] [place] [address] Jun, [facility] [address] [id number] [address] [place] [address] Jun, [facility] [address] [id number] [address] [place] [address] May, [facility] [address] [id number] [address] [place] [address] May, Bipolar I disorder, most rec ent episode (or current) mixed, moderate 296.62 [facility] [address] [id number] [address] [place] [address] May, [facility] [address] [id number] [address] [place] [address] May, Bipolar I disorder, most rec ent episode (or current) mixed, moderate 296.62 and Major depressive disorder, recurrent episode, severe, specified as with psychotic behavior 296.34 [facility] [address] [id number] [address] [place] [address] May, Bipolar I disorder, most rec ent episode (or current) mixed, moderate 296.62 [facility] [address] [id number] [address] [place] [phone] May, [facility] [address] [id number] [address] [place] [address] Apr, [facility] [address] [id number] [address] [place] [address] Apr, [facility] [address] [id number] [address] [place] [address] Apr, Unspecified disorder of kidn ey and ureter 593.9 and Diabetes mellitus type [address], [address] [facility] [address] [place] [id number] [place] [address] Apr, [facility] [address] [place] [id number] [address] [place] [address] Apr, [facility] [address] [address] Apr, [facility] [address] [place] [id number] [place] [address] Apr, [facility] [address] [address] Apr, Diabetes mellitus type II, u ncontrolled 250.02 [facility] [address] [address] Apr, [facility] [address] [address] Mar, [facility] [address] [address] Mar, [facility] [address] [place] [id number] [place] [address] Mar, [facility] [address] [address] Mar, Major depressive disorder, r ecurrent episode, severe, specified as with psychotic behavior 296.34 and Bipolar I disorder, most recent episode (or current) mixed, moderate 296.62 [facility] [address] [place] [id number] [address] [place] [address] Mar, Diabetes 250.00 ; Anuria 788 .5 ; Nausea and vomiting 787.[address] [facility] [address] [place] [id number] [address] [place] [address] Mar, Diabetes 250.00 [facility] [address] [place] [id number] [address] [place] [address] Mar, [facility] [address] [place] [id number] [place] [address] Mar, Diabetes 250.00 [facility] [address] [place] [id number] [address] [place] [address] Mar, [facility] [address] [address] Mar, [facility] [address] [place] [id number] [place] [address] Mar, [facility] [address] [address] Mar, [facility] [address] [place] [id number] [place] [address] Mar, Bipolar I disorder, most rec ent episode (or current) mixed, moderate 296.62 and Major depressive disorder, recurrent episode, severe, specified as with psychotic behavior 296.34 [facility] [address] [place] [id number] [address] [place] [address] Mar, Magnesium deficiency 275.2 ; Hypokalemia 276.8 ; Nausea & vomiting 787.01 and Diabetes mellitus type [address], [address] [facility] [address] [place] [id number] [address] [place] [address] Feb, [facility] [address] [address] Feb, Bipolar I disorder, most rec ent episode (or current) mixed, moderate 296.62 [facility] [address] [place] [id number] [place] [address] Feb, Nausea and vomiting 787.01 ; Left elbow pain 719.42 ; Anuria 788.[address] [facility] [address] [place] [id number] [address] [place] [address] Feb, [facility] [address] [facility] [id number] [address] [place] [address] Feb, Hypopotassemia 276.8 and Hyp okalemia 276.8 [facility] [address] [facility] [id number] [address] [place] [address] Feb, Hypopotassemia 276.8 and Hyp okalemia 276.8 [facility] [address] [place] [id number] [address] [place] [address] Feb, Seborrheic keratoses 702.19 [facility] [address] [id number] [address] [place] [address] Feb, Hypopotassemia 276.8 and Low magnesium levels 275.2 [facility] [address] [place] [id number] [address] [place] [address] January, [facility] [address] [place] [id number] [address] [place] [address] January, [facility] [address] [place] [id number] [address] [place] [address] January, [facility] [address] [place] [id number] [address] [place] [address] January, Scalp lesion 709.9 [facility] [address] [facility] [id number] [address] [place] [address] January, [facility] [address] [place] [id number] [address] [place] [address] Dec, Tear of medial cartilage or meniscus of knee, current 836.0 [address] [facility] [address] [facility] [id number] [address] [place] [address] Dec, [facility] [address] [place] [id number] [address] [place] [address] Dec, [facility] [address] [place] [id number] [address] [place] [address] Dec, Squamous cell carcinoma, 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 [facility] [address] [id number] [address] [place] [address], [place] [address] 14 Dec, 2014 [facility] [address] [id number] [address] [place] [address], [place] [id number] 13 Dec, 2014 [facility] [address] [id number] [address] [place] [address], [place] [address] Nov, [facility] [address] [id number] [address] [place] [address], [place] [address] Nov, [facility] [address] [id number] [address] [place] [address], [place] [address] Nov, [facility] [address] [id number] [address] [place] [address], [place] [address] Nov, [facility] [address] [id number] [address] [place] [address], [place] [phone] Nov, [facility] [address] [id number] [address] [place] [address] Nov, [facility] [address] [id number] [address] [place] [address], [place] [address] Nov, [facility] [address] [id number] [address] [place] [address] Nov, [facility] [address] [id number] [address] [place] [address] Nov, [facility] [address] [id number] [address] [place] [address] Nov, [facility] [address] [id number] [address] [place] [address], [place] [address] Nov, [facility] [address] [id number] [address] [place] [phone] Nov, [facility] [address] [id number] [address] [place] [address] Oct, [facility] [address] [id number] [address] [place] [address] Oct, 2014 [facility] [address] [id number] [address] [place] [address], [place] [address] Oct, 2014 [facility] [address] [id number] [address] [place] [address], [place] [address] Oct, 2014 [facility] [address] [id number] [address] [place] [address], [place] [address] Oct, 2014 [facility] [address] [id number] [address] [place] [address], [place] [address] Oct, 2014 [facility] [address] [id number] [address] [place] [address], [place] [address] Oct, 2014 [facility] [address] [id number] [address] [place] [address], [place] [address] Oct, 2014 [facility] [address] [id number] [address] [place] [address], [place] [address] Oct, [facility] [address] [id number] [address] [place] [id number] Sep, [facility] [address] [id number] [address] [place] [address], [place] [address] Sep, [facility] [address] [id number] [address] [place] [id number] Sep, [facility] [address] [id number] [address] [place] [address], [place] [address] Sep, [facility] [address] [id number] [address] [place] [id number] Sep, [facility] [address] [id number] [address] [place] [address], [place] [address] Sep, [facility] [address] [id number] [address] [place] [address], [place] [address] Sep, [facility] [address] [id number] [address] [place] [id number] Sep, [facility] [address] [id number] [address] [place] [address], [place] [address] Sep, [facility] [address] [id number] [address] [place] [address], [place] [address] Sep, [facility] [address] [id number] [address] [place] [address], [place] [address] Sep, [facility] [address] [id number] [address] [place] [address], [place] [address] Sep, [facility] [address] [id number] [address] [place] [address], [place] [address] Sep, [facility] [address] [id number] [address] [place] [address], [place] [address] Sep, [facility] [address] [id number] [address] [place] [address], [place] [address] Sep, [facility] [address] [id number] [address] [place] [address], [place] [address] Sep, [facility] [address] [id number] [address] [place] [address], [place] [address] Aug, [facility] [address] [id number] [address] [place] [address], [place] [address] Aug, [facility] [address] [id number] [address] [place] [address], [place] [address] Aug, [facility] [address] [id number] [address] [place] [address], [place] [address] 31 Aug, 2014 [facility] [address] [id number] [address] [place] [address], [place] [address] Aug, [facility] [address] [id number] [address] [place] [address], [place] [address] Aug, [facility] [address] [id number] [address] [place] [address], [place] [address] 17 Aug, 2014 [facility] [address] [id number] [address] [place] [address], [place] [address] Aug, [facility] [address] [id number] [address] [address] Aug, [facility] [address] [id number] [address] [place] [address], [place] [address] Aug, [facility] [address] [id number] [address] [place] [address], [place] [address] Aug, [facility] [address] [place] [id number] Aug, [facility] [address] [id number] [facility] [address] Aug, [facility] [address] [id number] [address] [place] [address], [place] [address] Aug, [facility] [address] [id number] [address] [place] [address], [place] [address] Aug, [facility] [address] [id number] [address] [place] [address], [place] [address] Aug, [facility] [address] [id number] [address] [place] [address], [place] [address] Aug, [facility] [address] [id number] [address] [place] [address], [place] [address] Aug, [facility] [address] [id number] [address] [place] [address], [place] [address] Aug, [facility] [address] [id number] [address] [place] [address], [place] [address] Aug, [facility] [address] [address] [id number] [address] [place] [address], [place] [address] Aug, [facility] [address] [id number] [address] [place] [address], [place] [address] Aug, [facility] [address] [id number] [facility] [place] [address] Aug, [facility] [address] [id number] [address] [place] [address], [place] [address] Aug, [facility] [address] [id number] [address] [place] [address], [place] [address] Aug, [facility] [address] [id number] [address] [place] [address], [place] [address] Aug, [facility] [address] [id number] [address] [place] [address], [place] [address] Aug, [facility] [address] [id number] [address] [place] [address], [place] [address] Aug, [facility] [address] [id number] [address] [place] [address], [place] [address] Aug, [facility] [address] [id number] [address] [place] [address], [place] [address] Aug, [facility] [address] [id number] [address] [place] [address], [place] [address] Jul, [facility] [address] [id number] [address] [place] [address], [place] [address] Jul, [facility] [address] [id number] [address] [place] [address], [place] [address] Jul, [facility] [address] [id number] [address] [place] [address], [place] [address] Jul, [facility] [address] [id number] [address] [place] [address], [place] [address] Jul, [facility] [address] [id number] [address] [place] [address], [place] [address] Jul, [facility] [address] [id number] [address] [place] [address], [place] [address] Jul, [facility] [address] [id number] [address] [place] [address], [place] [address] Jul, [facility] [address] [id number] [address] [place] [address], [place] [address] Jul, [facility] [address] [id number] [address] [place] [address], [place] [address] Jul, [facility] [address] [id number] [address] [place] [address], [place] [address] Jun, [facility] [address] [id number] [address] [place] [address], [place] [address] Jun, [facility] [address] [id number] [address] [place] [address], [place] [address] Jun, [facility] [address] [id number] [address] [place] [address], [place] [address] Jun, [facility] [address] [id number] [address] [place] [address], [place] [address] Jun, [facility] [address] [id number] [address] [place] [address], [place] [address] Jun, [facility] [address] [id number] [address] [place] [address], [place] [address] Jun, [facility] [address] [id number] [address] [place] [address], [place] [address] Jun, [facility] [address] [id number] [address] [place] [address], [place] [address] Jun, [facility] [address] [id number] [address] [place] [address] Jun, [facility] [address] [id number] [address] [place] [address] 29 May, 2014 [facility] [address] [id number] [address] [place] [address], [place] [address] 29 May, 2014 [facility] [address] [id number] [address] [place] [address], [place] [address] May, [facility] [address] [id number] [address] [place] [address] May, [facility] [address] [id number] [address] [place] [address] 17 May, 2013 [facility] [address] [id number] [address] [place] [address], [place] [address] 17 May, 2013 [facility] [address] [id number] [address] [place] [address], [place] [address] 15 May, 2013 [facility] [address] [id number] [address] [place] [address], [place] [address] 15 May, 2013 [facility] [address] [id number] [address] [place] [address], [place] [address] 15 May, 2013 [facility] [address] [id number] [address] [place] [address], [place] [address] 15 May, 2013 [facility] [address] [id number] [address] [place] [address], [place] [address] 10 May, 2013 [facility] [address] [id number] [address] [place] [address], [place] [address] 10 May, 2013 [facility] [address] [id number] [address] [place] [address], [place] [address] 09 May, 2013 [facility] [address] [id number] [address] [place] [address], [place] [address] 09 May, 2013 [facility] [address] [id number] [address] [place] [address], [place] [address] 04 May, 2014 [facility] [address] [id number] [address] [place] [address], [place] [address] May, 2013 [facility] [address] [id number] [address] [place] [address], [place] [address] Apr, [facility] [address] [id number] [address] [place] [address], [place] [address] Apr, [facility] [address] [id number] [address] [place] [address], [place] [address] Apr, [facility] [address] [id number] [address] [place] [address], [place] [address] Apr, [facility] [address] [id number] [facility] [address] Apr, [facility] [address] [id number] [facility] [address] Apr, [facility] [address] [id number] [facility] [place] [address] Apr, [facility] [address] [id number] [facility] [address] Apr, [facility] [address] [id number] [facility] [address] Apr, [facility] [address] [id number] [facility] [address] Apr, [facility] [address] [id number] [address] [place] [address], [place] [address] Apr, [facility] [address] [id number] [address] [place] [address], [place] [address] Apr, [facility] [address] [id number] [address] [place] [address], [place] [address] Apr, [facility] [address] [id number] [address] [place] [address], [place] [address] Apr, [facility] [address] [id number] [address] [place] [address], [place] [address] Apr, [facility] [address] [id number] [address] [place] [address], [place] [address] Mar, [facility] [address] [id number] [address] [place] [address], [place] [address] Mar, [facility] [address] [id number] [address] [place] [address], [place] [address] Mar, [facility] [address] [id number] [address] [place] [address], [place] [address] Mar, [facility] [address] [id number] [address] [place] [address], [place] [address] Mar, [facility] [address] [id number] [facility] [address] Mar, 2013 [facility] [address] [id number] [address] [place] [address], [place] [address] Mar, 2013 [facility] [address] [id number] [address] [place] [address], [place] [address] Mar, 2013 [facility] [address] [id number] [address] [place] [address], [place] [address] Mar, 2013 [facility] [address] [id number] [address] [place] [address], [place] [address] Mar, 2013 [facility] [address] [id number] [address] [place] [address], [place] [address] Mar, 2013 [facility] [address] [id number] [address] [place] [address], [place] [address] Mar, 2013 [facility] [address] [id number] [address] [place] [address], [place] [address] Mar, 2013 [facility] [address] [id number] [address] [place] [address], [place] [address] Mar, 2013 [facility] [address] [id number] [address] [place] [address], [place] [address] Mar, 2013 [facility] [address] [id number] [address] [place] [address], [place] [address] Mar, 2013 [facility] [address] [id number] [address] [place] [address], [place] [address] Mar, [facility] [address] [id number] [address] [place] [address], [place] [address] Mar, [facility] [address] [id number] [address] [place] [address], [place] [address] Feb, [facility] [address] [id number] [address] [place] [address], [place] [address] Feb, [facility] [address] [id number] [address] [place] [address], [place] [address] 16 Feb, 2014 [facility] [address] [id number] [facility] [address] 16 Feb, 2014 [facility] [address] [id number] [facility] [address] Feb, [facility] [address] [id number] [facility] [address] Feb, [facility] [address] [id number] [facility] [place] [address] Feb, [facility] [address] [id number] [address] [place] [address], [place] [address] Feb, [facility] [address] [id number] [address] [place] [address], [place] [address] Feb, [facility] [address] [id number] [address] [place] [address], [place] [address] Feb, [facility] [address] [id number] [address] [place] [address], [place] [address] Feb, [facility] [address] [id number] [address] [place] [address], [place] [address] Feb, [facility] [address] [id number] [address] [place] [address], [place] [address] Feb, [facility] [address] [id number] [address] [place] [address], [place] [address] Feb, [facility] [address] [id number] [address] [place] [address], [place] [address] January, [facility] [address] [id number] [address] [place] [address], [place] [address] January, [facility] [address] [id number] [address] [place] [address], [place] [address] January, [facility] [address] [id number] [address] [place] [address], [place] [address] January, [facility] [address] [id number] [facility] [address] January, [facility] [address] [id number] [address] [place] [address] January, [facility] [address] [id number] [facility] [address] January, [facility] [address] [id number] [address] [place] [address], [place] [address] January, [facility] [address] [id number] [address] [place] [address], [place] [address] January, [facility] [address] [id number] [address] [place] [address], [place] [address] January, [facility] [address] [id number] [address] [place] [address], [place] [address] January, [facility] [address] [id number] [address] [place] [address], [place] [address] January, [facility] [address] [id number] [address] [place] [address], [place] [address] January, [facility] [address] [id number] [address] [place] [address], [place] [address] January, [facility] [address] [id number] [address] [place] [address], [place] [address] Dec, [facility] [address] [id number] [address] [place] [address], [place] [address] Dec, [facility] [address] [id number] [address] [place] [address], [place] [address] Dec, [facility] [address] [id number] [address] [place] [address], [place] [address] Dec, [facility] [address] [id number] [address] [place] [address], [place] [address] Dec, [facility] [address] [id number] [address] [place] [address], [place] [address] Dec, [facility] [address] [id number] [address] [address] Dec, [facility] [address] [id number] [address] [place] [address], [place] [address] Dec, [facility] [address] [id number] [address] [place] [address], [place] [address] Dec, [facility] [address] [id number] [address] [place] [address], [place] [address] Dec, [facility] [address] [id number] [address] [place] [address], [place] [address] Nov, [facility] [address] [id number] [address] [place] [address], [place] [address] Nov, [facility] [address] [id number] [address] [place] [address], [place] [address] Nov, [facility] [address] [id number] [address] [place] [address], [place] [address] Nov, [facility] [address] [id number] [address] [place] [address], [place] [address] Nov, [facility] [address] [id number] [address] [place] [address], [place] [address] Nov, [facility] [address] [id number] [address] [place] [address], [place] [address] Nov, [facility] [address] [id number] [address] [place] [address], [place] [address] Nov, [facility] [address] [id number] [address] [place] [address], [place] [address] Nov, [facility] [address] [id number] [address] [place] [address], [place] [address] Nov, [facility] [address] [id number] [address] [place] [address], [place] [address] Oct, [facility] [address] [id number] [address] [place] [address], [place] [address] Oct, [facility] [address] [id number] [address] [place] [address], [place] [address] Oct, [facility] [address] [id number] [address] [place] [address], [place] [address] Oct, [facility] [address] [id number] [address] [place] [address], [place] [address] Oct, [facility] [address] [id number] [address] [place] [address], [place] [address] Oct, [facility] [address] [id number] [address] [place] [address], [place] [address] Oct, [facility] [address] [id number] [address] [place] [address], [place] [address] Oct, [facility] [address] [id number] [address] [place] [address], [place] [address] Oct, [facility] [address] [id number] [address] [place] [address], [place] [address] Oct, [facility] [address] [id number] [address] [place] [address], [place] [address] Oct, [facility] [address] [id number] [address] [place] [address], [place] [address] Oct, [facility] [address] [id number] [address] [place] [address] Oct, [facility] [address] [id number] [address] [place] [address], [place] [address] Oct, [facility] [address] [id number] [address] [place] [address], [place] [address] Sep, [facility] [address] [id number] [address] [place] [address] Sep, [facility] [address] [id number] [address] [place] [address] 15 Sep, 2013 [facility] [address] [id number] [address] [place] [address], [place] [address] 15 Sep, 2013 [facility] [address] [id number] [address] [place] [address], [place] [address] 14 Sep, 2013 [facility] [address] [id number] [address] [place] [address], [place] [address] Sep, [facility] [address] [id number] [address] [place] [address], [place] [address] Sep, [facility] [address] [id number] [address] [place] [address], [place] [address] Sep, [facility] [address] [id number] [address] [place] [address], [place] [address] Sep, [facility] [address] [id number] [address] [place] [address], [place] [address] Sep, [facility] [address] [id number] [address] [place] [address], [place] [address] Aug, [facility] [address] [id number] [address] [place] [address], [place] [address] Aug, [facility] [address] [id number] [address] [place] [address], [place] [address] Jul, [facility] [address] [id number] [address] [place] [address], [place] [address] Jul, [facility] [address] [id number] [address] [place] [address], [place] [address] Jul, [facility] [address] [id number] [address] [place] [address], [place] [address] Jul, [facility] [address] [id number] [address] [place] [address], [place] [address] Jul, [facility] [address] [id number] [address] [place] [address], [place] [address] Jul, [facility] [address] [id number] [address] [place] [address], [place] [address] 12 Jul, 2013 [facility] [address] [id number] [address] [place] [address], [place] [address] Jul, [facility] [address] [id number] [address] [place] [address], [place] [address] 08 Jul, 2013 [facility] [address] [id number] [address] [place] [address], [place] [address] 08 Jul, 2013 [facility] [address] [id number] [address] [place] [address], [place] [address] 07 Jul, 2013 [facility] [address] [id number] [address] [place] [address], [place] [address] Jul, [facility] [address] [id number] [address] [place] [address], [place] [address] Jul, [facility] [address] [id number] [address] [place] [address], [place] [address] Jul, [facility] [address] [id number] [address] [place] [address], [place] [address] Jul, [facility] [address] [id number] [address] [place] [address], [place] [address] Jul, [facility] [address] [id number] [address] [place] [address], [place] [address] Jul, [facility] [address] [id number] [address] [place] [address], [place] [address] Jul, [facility] [address] [id number] [address] [place] [address], [place] [address] Jul, [facility] [address] [id number] [address] [place] [address], [place] [address] Jun, [facility] [address] [id number] [address] [place] [address], [place] [address] Jun, [facility] [address] [id number] [address] [place], [place] [address] [address] 16 Jun, 2013 [facility] [address] [id number] [address] [place] [address], [place] [address] 16 Jun, 2012 [facility] [address] [id number] [address] [place] [address], [place] [address] 16 Jun, 2013 [facility] [address] [id number] [address] [place] [address], [place] [address] 16 Jun, 2013 [facility] [address] [id number] [address] [place] [address], [place] [address] 10 Jun, 2013 [facility] [address] [id number] [address] [place] [address], [place] [address] 10 Jun, 2013 [facility] [address] [id number] [address] [place] [address], [place] [address] Jun, [facility] [address] [id number] [address] [place] [address], [place] [address] Jun, [facility] [address] [id number] [address] [place] [id number] Jun, [facility] [address] [id number] [address] [place] [id number] 26 Sep, 2012 [facility] [address] [id number] [address] [place] [id number] 25 Sep, 2012 [facility] [address] [id number] [address] [place] [id number] 19 Sep, 2012 [facility] [address] [id number] [address] [place] [id number] 17 Sep, 2012 [facility] [address] [id number] [address] [place] [id number] 11 Sep, 2012 [facility] [address] [id number] [address] [place] [id number] 10 May, 2012 [facility] [address] [id number] [address] [place] [id number] 09 May, 2012 [facility] [address] [id number] [address] [place] [address], [place] [address] May, [facility] [address] [id number] [address] [place] [address], [place] [address] Apr, [facility] [address] [id number] [address] [place] [address], [place] [address] Apr, [facility] [address] [id number] [address] [place] [address], [place] [address] Apr, [facility] [address] [id number] [address] [place] [address], [place] [address] Apr, [facility] [address] [id number] [address] [place] [address], [place] [address] Apr, [facility] [address] [id number] [address] [place] [address], [place] [address] Mar, [facility] [address] [id number] [address] [place] [address], [place] [address] Mar, [facility] [address] [id number] [address] [place] [address], [place] [address] Mar, [facility] [address] [id number] [address] [place] [address], [place] [address] Mar, [facility] [address] [id number] [address] [place] [address], [place] [address] Mar, [facility] [address] [id number] [address] [place] [address], [place] [address] Mar, [facility] [address] [id number] [address] [place] [address], [place] [address] Mar, [facility] [address] [id number] [address] [place] [address], [place] [address] Mar, [facility] [address] [id number] [address] [place] [address], [place] [address] Feb, [facility] [address] [id number] [address] [place] [address], [place] [address] Feb, [facility] [address] [id number] [address] [place] [address], [place] [address] January, [facility] [address] [id number] [address] [place] [address], [place] [address] January, [facility] [address] [id number] [address] [place] [address], [place] [address] Dec, [facility] [address] [id number] [address] [place] [address], [place] [address] Dec, [facility] [address] [id number] [address] [place] [address], [place] [address] Nov, [facility] [address] [id number] [address] [place] [address], [place] [address] Nov, [facility] [address] [id number] [address] [place] [address], [place] [address] Nov, [facility] [address] [id number] [address] [place] [address], [place] [address] Nov, [facility] [address] [id number] [address] [place] [address], [place] [address] Oct, [facility] [address] [id number] [address] [place] [address], [place] [address] Oct, [facility] [address] [id number] [address] [place] [address], [place] [address] Oct, [facility] [facility] [address] [id number] [address] [place] [address], [place] [address] Oct, [facility] [address] [id number] [address] [place] [address], [place] [address] 16 Oct, 2012 [facility] [address] [id number] [address] [place] [address], [place] [address] 14 Oct, 2012 [facility] [address] [id number] [address] [place] [address], [place] [address] 08 Oct, 2012 [facility] [address] [id number] [address] [place] [address], [place] [address] 07 Oct, 2012 [facility] [address] [id number] [address] [place] [address], [place] [address] 03 Oct, 2012 [facility] [address] [id number] [address] [place] [address], [place] [address] 30 Sep, 2012 [facility] [address] [id number] [address] [place] [address], [place] [address] Sep, [facility] [address] [id number] [address] [place] [address], [place] [address] Sep, [facility] [address] [id number] [address] [place] [address], [place] [address] Sep, [facility] [address] [id number] [address] [place] [address], [place] [address] Sep, [facility] [address] [id number] [address] [place] [address], [place] [address] Sep, [facility] [address] [id number] [address] [place] [address], [place] [address] Sep, [facility] [address] [id number] [address] [place] [address], [place] [address] Sep, [facility] [address] [id number] [address] [place] [address], [place] [address] Aug, [facility] [address] [id number] [address] [place] [address], [place] [address] Aug, [facility] [address] [id number] [address] [place] [address], [place] [address] Aug, [facility] [address] [id number] [address] [place] [address], [place] [address] Aug, [facility] [address] [id number] [address] [place] [address], [place] [address] Aug, [facility] [address] [id number] [address] [place] [address], [place] [address] Aug, [facility] [address] [id number] [address] [place] [address], [place] [address] Aug, [facility] [address] [id number] [address] [place] [address], [place] [address] Aug, [facility] [address] [id number] [address] [place] [address], [place] [address] Jul, [facility] [address] [id number] [address] [place] [address], [place] [address] Jul, [facility] [address] [id number] [address] [place] [address], [place] [address] Jul, [facility] [address] [id number] [address] [place] [address], [place] [address] Jul, [facility] [address] [id number] [address] [place] [address], [place] [address] Jul, [facility] [address] [id number] [address] [place] [address], [place] [address] Jul, [facility] [address] [id number] [address] [place] [address], [place] [address] Jun, [facility] [address] [id number] [address] [place] [address] Jun, [facility] [address] [id number] [address] [place] [address], [place] [address] Jun, [facility] [address] [id number] [address] [place] [address] Jun, [facility] [address] [id number] [address] [place] [address], [place] [address] Jun, [facility] [address] [id number] [address] [place] [address], [place] [address] Jun, [facility] [address] [id number] [address] [place] [address] Jun, [facility] [address] [id number] [address] [place] [address] Jun, [facility] [address] [id number] [address] [place] [address], [place] [address] Jun, [facility] [address] [id number] [address] [place] [address], [place] [address] 26 May, 2012 [facility] [address] [id number] [address] [place] [address], [place] [address] 24 May, 2012 [facility] [address] [id number] [address] [place] [address], [place] [address] May, [facility] [address] [id number] [address] [place] [address], [place] [address] Apr, [facility] [address] [id number] [address] [place] [address], [place] [address] Apr, [facility] [address] [id number] [address] [place] [address], [place] [address] Apr, [facility] [address] [id number] [address] [place] [address], [place] [address] Apr, [facility] [address] [id number] [address] [place] [address], [place] [address] Apr, [facility] [address] [id number] [address] [place] [address], [place] [address] Apr, [facility] [address] [id number] [address] [place] [address], [place] [address] Mar, [facility] [address] [id number] [address] [place] [address], [place] [address] Mar, [facility] [address] [id number] [address] [place] [address], [place] [address] Mar, [facility] [address] [id number] [address] [place] [address], [place] [address] Mar, [facility] [address] [id number] [address] [place] [address], [place] [address] Feb, [facility] [address] [id number] [address] [place] [address], [place] [address] 28 Feb, 2012 [facility] [address] [id number] [address] [place] [address], [place] [address] Feb, [facility] [address] [id number] [address] [place] [address], [place] [address] Feb, [facility] [address] [id number] [address] [place] [address], [place] [address] Feb, [facility] [address] [id number] [address] [place] [address], [place] [address] January, [facility] [address] [id number] [address] [place] [address], [place] [address] January, [facility] [address] [id number] [address] [place] [address], [place] [address] January, [facility] [address] [id number] [address] [place] [address], [place] [address] January, [facility] [address] [id number] [address] [place] [address], [place] [address] January, [facility] [address] [id number] [address] [place] [address], [place] [address] January, [facility] [address] [id number] [address] [place] [address], [place] [address] Dec, [facility] [address] [id number] [address] [place] [address], [place] [address] Dec, [facility] [address] [id number] [address] [place] [address], [place] [address] Dec, [facility] [address] [id number] [address] [place] [address], [place] [address] Dec, [facility] [address] [id number] [address] [place] [address], [place] [address] Dec, [facility] [address] [id number] [address] [place] [address], [place] [address] Nov, [facility] [address] [id number] [address] [place] [address], [place] [address] 14 Nov, 2011 [facility] [address] [id number] [address] [place] [address], [place] [address] 12 Nov, 2011 [facility] [address] [id number] [address] [place] [address], [place] [address] 07 Nov, 2011 [facility] [address] [id number] [address] [place] [address], [place] [address] 29 Oct, 2011 [facility] [address] [id number] [address] [place] [address], [place] [address] 28 Oct, 2011 [facility] [address] [id number] [address] [place] [address], [place] [address] 24 Oct, 2011 [facility] [address] [id number] [address] [place] [address], [place] [address] 13 Oct, 2011 [facility] [address] [id number] [address] [place] [address], [place] [address] 08 Oct, 2011 [facility] [address] [id number] [address] [place] [address], [place] [address] Sep, [facility] [address] [id number] [address] [place] [address], [place] [address] Sep, [facility] [address] [id number] [address] [place] [address], [place] [address] Sep, [facility] [address] [id number] [address] [place] [address], [place] [address] Sep, [facility] [address] [id number] [address] [place] [address], [place] [address] Sep, [facility] [address] [id number] [address] [place] [address], [place] [address] Sep, [facility] [address] [id number] [address] [place] [address], [place] [address] Aug, [facility] [address] [id number] [address] [place] [address], [place] [address] Aug, [facility] [address] [id number] [address] [place] [address], [place] [address] Aug, [facility] [address] [id number] [address] [place] [address], [place] [address] Jul, [facility] [address] [id number] [address] [place] [address], [place] [address] Jul, [facility] [address] [id number] [address] [place] [address], [place] [address] Jul, [facility] [address] [id number] [address] [place] [address], [place] [address] Jul, [facility] [address] [id number] [address] [place] [address], [place] [address] Jun, [facility] [address] [id number] [address] [place] [address], [place] [address] Jun, [facility] [address] [id number] [address] [place] [address], [place] [address] Jun, [facility] [address] [id number] [address] [place] [address], [place] [address] Jun, [facility] [address] [id number] [address] [place] [address], [place] [address] Jun, [facility] [address] [id number] [address] [place] [address], [place] [address] Jun, [facility] [address] [id number] [address] [place] [address], [place] [address] Mar, [facility] [address] [id number] [address] [place] [address], [place] [address] Dec, [facility] [address] [id number] [address] [place] [address], [place] [address] Dec, [facility] [address] [id number] [address] [place] [address], [place] [address] Nov, [facility] [address] [id number] [address] [place] [address], [place] [address] 16 Nov, 2010 [facility] [address] [id number] [address] [place] [address], [place] [address] 10 Sep, 2010 [facility] [address] [id number] [address] [place] [address], [place] [address] 31 Aug, 2010 [facility] [address] [id number] [address] [place] [address], [place] [address] 29 Aug, 2010 [facility] [address] [id number] [address] [place] [address], [place] [address] 29 Aug, 2010 [facility] [address] [id number] [address] [place] [address], [place] [address] 29 Aug, 2010 [facility] [address] [id number] [address] [place] [address], [place] [address] 27 Aug, 2010 [facility] [address] [id number] [address] [place] [address], [place] [address] 14 Aug, 2010 [facility] [address] [id number] [address] [place] [address], [place] [address] Aug, [facility] [address] [id number] [address] [place] [address], [place] [address] 08 Aug, 2010 [facility] [address] [id number] [address] [place] [address], [place] [address] Aug, [facility] [address] [id number] [address] [place] [address], [place] [address] 06 Aug, 2010 [facility] [address] [id number] [address] [place] [address], [place] [address] Aug, [facility] [address] [id number] [address] [place] [address], [place] [address] Aug, [facility] [address] [id number] [address] [place] [address], [place] [address] 30 Jul, 2010 [facility] [address] [id number] [address] [place] [address] 30 Jul, 2010 [facility] [address] [id number] [address] [place] [address], [place] [address] 30 Jul, 2010 [facility] [address] [id number] [address] [place] [address] Jul, [facility] [address] [id number] [address] [place] [address], [place] [address] Jul, [facility] [address] [id number] [address] [place] [address] Jul, [facility] [address] [id number] [address] [place] [address], [place] [address] 24 Jun, 2010 [facility] [address] [id number] [address] [place] [address] Jun, [facility] [address] [id number] [address] [place] [address] Jun, [facility] [address] [id number] [address] [place] [address], [place] [address] Jun, [facility] [address] [id number] [address] [place] [address] 16 Apr, 2010 [facility] [address] [id number] [address] [place] [address] Mar, [facility] [address] [id number] [address] [place] [address] Feb, [facility] [address] [id number] [address] [place] [address] January, [facility] [address] [id number] [address] [place] [address] 15 Dec, 2009 [facility] [address] [id number] [address] [place] [address] Nov, [facility] [address] [id number] [address] [place] [address], [place] [address] 31 Aug, 2009 [facility] [address] [id number] [address] [place] [address], [place] [address] Aug, [facility] [address] [id number] [address] [place] [address], [place] [address] Aug, [facility] [address] [id number] [address] [place] [address], [place] [address] Jul, [facility] [address] [id number] [address] [place] [address], [place] [address] Jul, [facility] [address] [id number] [address] [place] [address], [place] [address] Jul, [facility] [address] [id number] [address] [place] [address], [place] [address] Jun, [facility] [address] [id number] [address] [place] [address], [place] [address] Jun, [facility] [address] [id number] [address] [place] [address], [place] [address] Jun, [facility] [address] [id number] [address] [place] [address], [place] [address] Jun, [facility] [address] [id number] [address] [place] [address], [place] [address] Jun, [facility] [address] [id number] [address] [place] [address] Jun, [facility] [address] [id number] [address] [place] [address], [place] [address] Apr, [facility] [address] [id number] [address] [place] [address] Apr, [facility] [address] [id number] [address] [place] [address], [place] [address] Feb, [facility] [address] [id number] [address] [place] [id number] January, [facility] [address] [id number] [address] [place] [id number] Dec, IMMUNIZATIONS No Known Immunizations SOCIAL HISTORY Never Assessed REASON FOR VISIT f/u PLAN OF CARE Activity Details Follow Up 2 Weeks Reason:depression VITAL SIGNS MEDICATIONS Unknown Medications RESULTS No Results PROCEDURES Procedure Date Ordered Result Body Site [facility] VISIT MENTAL HEALTH ESTAB PT Aug 28, 2018 Psychotherapy, patient and family, 45 minutes, established p atient Aug 28, 2018 INSTRUCTIONS MEDICATIONS ADMINISTERED No Known [...] 2009 Surgical History colonoscopy 2009 ([place]), 2013 ([place] ) Surgical History heart cath: CAD w/ [...] to urinate 09/16/15 Hospitalization History [facility] mental health ea rly 1999's Hospitalization History hyperkalemia 10/2017 Hospitalization History fluid in lung
--- OUTSIDE RECORDS SUMMARY | 2020-03-01 18:26 | XMS REPORT ---
Author Author Michele WASHBURN Organization [facility] Address [address] [place] [address] Care Team Providers Care Director Of Casino Name Role Phone NOEMI WASHBURN Unavailable PROBLEMS Type Condition ICD9-CM Code [id number] Code Onset Dates Condition S tatus SNOMED Code Problem Lymphocytosis D72.820 Active 552750 09 Problem Chronic lymphocytic leukemia C91.10 A ctive 72506591 Problem Eye exam abnormal R93.8 Active 16 3421826 Problem Eustachian tube dysfunction, unspecified laterality H69.80 Active 08356910 Problem Dysuria R30.0 Active 21440173 Problem Cough R05 Active 50681894 Problem Hypokalemia E87.6 Active 73571966 Problem Bilateral primary osteoarthritis of knee M17.0 Active 299083545 Problem Benign prostatic hyperplasia with lower urinary tract symptoms, unspecified morphology N40.1 Active 27843 6007 Problem Retinal edema H35.81 Active 444869 6 Problem DM neuro manif type II E11.49 Active 04991083 Problem Anemia of chronic illness D63.8 Acti ve 845757364 Problem Falling R29.6 Active 233743008 Problem 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 Active 244763293 Problem Mild cognitive impairment G31.84 Acti ve 470475278 Problem Other chronic pain G89.29 Active 8 2502161 Problem Diabetes E11.9 Active 78045691 Problem Leukocytosis D72.829 Active 1634256 06 Problem Chronic pain G89.29 Active 2105771 1 Problem Pure hypercholesterolemia E78.00 Acti ve 619642500 Problem Bipolar disorder, in partial remission, most rec ent episode depressed F31.75 Active 98691110 Problem Other iron deficiency anemia D50.8 A ctive 90638036 Problem Primary osteoarthritis of right knee M17.11 Active 893944868241643 Problem Insomnia, unspecified type G47.00 Act sharon 735922969 Problem Anxiety F41.9 Active 38078608 Problem Reactive airway disease J45.909 Active 201440391169 Problem Bipolar I disorder, most recent episode (or curr ent) mixed, moderate F31.62 Active 62706174 Problem Diabetic polyneuropathy associated with type 2 d iabetes mellitus E11.42 Active 64151689 Problem Polyneuropathy associated with underlying disease G63 Active 571940373 Problem Morbid obesity E66.01 Active 96104 6002 Problem Essential hypertension I10 Active 57977780 ALLERGIES No Information ENCOUNTERS Encounter Location Date Diagnosis [facility] [address] [facility] [id number] [address] [place] [phone] Aug, [facility] [address] [facility] [id number] [address] [place] [phone] Jul, [place] [address] [address] [place] [id number] [address] [place] [address] Jul, Chronic pain G89.29 [place] [address] [place] [id number] [address] [place] [address] Jul, Bipolar I disorder, most rec ent episode (or current) mixed, moderate F31.62 and Mild cognitive impairment G31.84 [place] [address] [facility] [id number] [address] [place] [address] Jul, Bipolar I disorder, most rec ent episode (or current) mixed, moderate F31.62 and MCI (mild cognitive impairment) G31.84 [place] [address] [facility] [id number] [address] [place] [phone] Jul, [facility] [address] [facility] [id number] [address] [place] [address] Jul, [facility] [address] [facility] [id number] [address] [place] [address] Jul, Bipolar I disorder, most rec ent episode (or current) mixed, moderate F31.62 [facility] [address] [facility] [id number] [address] [place] [address] Jul, Chronic pain G89.29 [facility] [address] [facility] [id number] [address] [place] [phone] Jun, Bipolar I disorder, most rec ent episode (or current) mixed, moderate F31.62 [facility] [address] [id number] [address] [place] [phone] Jun, Pre-procedure lab exam Z01.8 12 [facility] [address] [id number] [place] [address] [id number] Jun, [facility] [address] [facility] [id number] [address] [place] [phone] Jun, [facility] [address] [facility] [id number] [address] [place] [phone] Jun, [facility] [address] [facility] [id number] [address] [place] [phone] Jun, Forgetfulness R68.89 ; Pre-s yncope R55 ; Localized edema R60.0 ; Other iron deficiency anemia D50.8 and BMI 50.0-59.9, adult Z68.43 [facility] [address] [facility] [id number] [address] [place] [phone] Jun, Chronic pain G89.29 [facility] [address] [facility] [id number] [address] [place] [address] Jun, Chronic pain G89.29 [facility] [address] [facility] [id number] [address] [place] [address] Jun, Bipolar I disorder, most rec ent episode (or current) mixed, moderate F31.62 [facility] [address] [facility] [id number] [address] [place] [phone] May, Chronic pain G89.29 [facility] [address] [facility] [id number] [address] [place] [address] Apr, [facility] [address] [facility] [id number] [address] [place] [address] Apr, Chronic pain G89.29 [facility] [address] [facility] [id number] [address] [place] [address] Apr, Primary osteoarthritis of ri ght knee M17.11 [place] [address] [place] [id number] [place] [address] Mar, [place] [address] [place] [id number] [place] [address] Mar, BMI 50.0-59.9, adult Z68.43 and Bipolar disorder, in partial remission, most recent episode depressed F31.75 [place] [address] [address] Mar, Diabetes E11.9 ; Pure hyperc holesterolemia E78.00 ; Essential hypertension I10 ; Nausea with vomiting, unspecified R11.2 and Headache, unspecified headache type R51 [place] [address] [address] Mar, Bipolar I disorder, most rec ent episode (or current) mixed, moderate F31.62 [place] [address] [address] Mar, Bipolar I disorder, most rec ent episode (or current) mixed, moderate F31.62 [place] [address] [place] [id number] [address] [place] [address] Mar, Chronic pain G89.29 [place] [address] [address] Mar, Bipolar I disorder, most rec ent episode (or current) mixed, moderate F31.62 [place] [address] [place] [id number] [address] [place] [phone] 18 Feb, 2018 Bipolar I disorder, most rec ent episode (or current) mixed, moderate F31.62 [place] [address] [place] [id number] [address] [place] [address] Feb, Chronic pain G89.29 [place] [address] [address] Feb, Decubitus ulcer of right josselin t, stage 3 L89.893 and BMI 50.0-59.9, adult Z68.43 [place] [address] [address] Feb, Bipolar I disorder, most rec ent episode (or current) mixed, moderate F31.62 [place] [address] [address] Feb, [place] [address] [place] [id number] [place] [address] January, [place] [address] [address] January, Chronic pain G89.29 [place] [address] [place] [id number] [place] [address] January, Bipolar I disorder, most rec ent episode (or current) mixed, moderate F31.62 [place] [address] [address] January, Bipolar I disorder, most rec ent episode (or current) mixed, moderate F31.62 [place] [address] [address] Dec, Bipolar I disorder, most rec ent episode (or current) mixed, moderate F31.62 and BMI 50.0-59.9, adult Z68.43 [place] [address] [address] Dec, Bipolar I disorder, most rec ent episode (or current) mixed, moderate F31.62 [place] [address] [place] [id number] [place] [address] Dec, Chronic pain G89.29 [place] [address] [place] [id number] [place] [address] Dec, DM neuro manif type II E11.4 9 ; Right flank pain R10.9 ; rn long term care current use of opiate analgesic Z79.891 ; Encounter for medication monitoring Z51.81 and BMI 50.0-59.9, adult Z68.43 [place] [address] [place] [id number] [address] [place] [address] Dec, Bipolar I disorder, most rec ent episode (or current) mixed, moderate F31.62 [place] [address] [place] [id number] [address] [place] [address] Nov, Bipolar I disorder, most rec ent episode (or current) mixed, moderate F31.62 [place] [address] [place] [id number] [address] [place] [address] Nov, Chronic pain G89.29 [place] [address] [place] [id number] [address] [place] [phone] Nov, Bipolar I disorder, most rec ent episode (or current) mixed, moderate F31.62 [place] [address] [place] [id number] [address] [place] [address] Nov, Hypokalemia E87.6 [place] [address] [place] [id number] [place] [phone] Nov, Bipolar I disorder, most rec ent episode (or current) mixed, moderate F31.62 [place] [address] [place] [id number] [address] [place] [address] Oct, Chronic pain G89.29 [place] [address] [place] [id number] [place] [address] Oct, BMI 50.0-59.9, adult Z68.43 and Bipolar I disorder, most recent episode (or current) mixed, moderate F31.62 [place] [address] [place] [id number] [place] [address] Oct, Bipolar I disorder, most rec ent episode (or current) mixed, moderate F31.62 [place] [address] [place] [id number] [address] [place] [address] Oct, [facility] [address] [facility] [id number] [address] [place] [address] Oct, Hypokalemia E87.6 [facility] [address] [facility] [id number] [address] [place] [address] Oct, DM neuro manif type II E11.4 9 [facility] [address] [facility] [id number] [address] [place] [address] Oct, Bipolar I disorder, most rec ent episode (or current) mixed, moderate F31.62 [facility] [address] [facility] [id number] [address] [place] [address] Oct, Bipolar I disorder, most rec ent episode (or current) mixed, moderate F31.62 [facility] [address] [place] [id number] [address] [place] [phone] Oct, Hyperkalemia E87.5 ; Falling R29.6 ; BMI 50.0-59.9, adult Z68.43 and Acute left ankle pain M25.572 [facility] [address] [place] [id number] [address] [place] [address] Oct, DM neuro manif type II E11.4 9 [facility] [address] [place] [id number] [address] [place] [address] Oct, [facility] [address] [place] [id number] [address] [place] [address] Sep, Chronic pain G89.29 [facility] [address] [place] [id number] [address] [place] [address] Sep, [facility] [address] [address] Sep, Bilateral primary osteoarthr itis of knee M17.0 [facility] [address] [place] [id number] [address] [place] [address] Sep, Generalized edema R60.1 [facility] [address] [address] 16 Sep, 2017 Bipolar I disorder, most rec ent episode (or current) mixed, moderate F31.62 [place] [address] [address] 15 Sep, 2017 Hypoxia R09.02 ; Other hyper volemia E87.79 ; Diabetes E11.9 ; Retinal edema H35.81 ; Hypokalemia E87.6 ; 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 ; Anemia of chronic illness D63.8 and BMI 50.0- 59.9, adult Z68.43 [place] [address] [address] Sep, [place] [address] [address] Sep, Bipolar I disorder, most rec ent episode (or current) mixed, moderate F31.62 [place] [address] [address] Aug, Chronic pain G89.29 [place] [address] [address] 27 Aug, 2017 Generalized edema R60.1 [place] [address] [address] 18 Aug, 2017 [place] [address] [address] 18 Aug, 2017 [place] [address] [address] 14 Aug, 2017 Bipolar I disorder, most rec ent episode (or current) mixed, moderate F31.62 [place] [address] [address] 07 Aug, 2017 Bipolar I disorder, most rec ent episode (or current) mixed, moderate F31.62 [place] [address] [address] Aug, Chronic pain G89.29 [facility] [address] [facility] [id number] [address] [place] [address] Jul, Bipolar I disorder, most rec ent episode (or current) mixed, moderate F31.62 [facility] [address] [facility] [id number] [address] [place] [address] Jul, Bipolar I disorder, most rec ent episode (or current) mixed, moderate F31.62 and BMI 60.0-69.9, adult Z68.44 [place] [address] [facility] [id number] [address] [place] [address] Jul, Bipolar I disorder, most rec ent episode (or current) mixed, moderate F31.62 [place] [address] [facility] [id number] [address] [place] [address] Jul, Chronic pain G89.29 [place] [address] [facility] [id number] [address] [place] [address] Jul, Bipolar I disorder, most rec ent episode (or current) mixed, moderate F31.62 [place] [address] [facility] [id number] [address] [place] [address] Jun, Polyneuropathy associated wi th underlying disease G63 and Diabetes E11.9 [facility] [address] [facility] [id number] [address] [place] [address] Jun, Bipolar I disorder, most rec ent episode (or current) mixed, moderate F31.62 [facility] [address] [facility] [id number] [address] [place] [address] Jun, Chronic pain G89.29 [facility] [address] [facility] [id number] [address] [place] [address] May, Bipolar I disorder, most rec ent episode (or current) mixed, moderate F31.62 [facility] [address] [facility] [id number] [address] [place] [address] May, Bipolar I disorder, most rec ent episode (or current) mixed, moderate F31.62 [facility] [address] [id number] [address] [place] [address] 20 May, 2017 Diabetic polyneuropathy asso ciated with type 2 diabetes mellitus E11.42 [facility] [address] [id number] [address] [place] [address] 18 May, 2017 Bipolar I disorder, most rec ent episode (or current) mixed, moderate F31.62 [facility] [address] [id number] [address] [place] [address] 13 May, 2017 Bipolar I disorder, most rec ent episode (or current) mixed, moderate F31.62 [facility] [address] [id number] [address] [place] [address] 12 May, 2017 Chronic pain G89.29 [facility] [address] [facility] [id number] [address] [place] [address] 30 Apr, 2017 Bipolar I disorder, most rec ent episode (or current) mixed, moderate F31.62 [facility] [address] [id number] [address] [place] [address] Apr, [facility] [address] [facility] [id number] [address] [place] [address] Apr, Chronic pain G89.29 and DM n euro manif type II E11.49 [facility] [address] [id number] [address] [place] [address] Apr, [facility] [address] [id number] [address] [place] [address] Apr, Bipolar I disorder, most rec ent episode (or current) mixed, moderate F31.62 [facility] [address] [id number] [address] [place] [address] 14 Apr, 2017 Chronic pain G89.29 [facility] [address] [id number] [address] [place] [address] 03 Apr, 2017 Iliotibial band syndrome, le ft M76.32 [facility] [address] [facility] [id number] [address] [place] [address] Apr, Bipolar I disorder, most rec ent episode (or current) mixed, moderate F31.62 [facility] [address] [facility] [id number] [address] [place] [address] Mar, Bipolar I disorder, most rec ent episode (or current) mixed, moderate F31.62 [facility] [address] [facility] [id number] [address] [place] [address] Mar, Bipolar I disorder, most rec ent episode (or current) mixed, moderate F31.62 [facility] [address] [id number] [address] [place] [address] Mar, [facility] [address] [facility] [id number] [address] [place] [address] Mar, Bipolar I disorder, most rec ent episode (or current) mixed, moderate F31.62 [facility] [address] [facility] [id number] [address] [place] [address] Mar, Chronic pain G89.29 [facility] [address] [facility] [id number] [address] [place] [address] Mar, Bipolar I disorder, most rec ent episode (or current) mixed, moderate F31.62 [facility] [address] [facility] [id number] [address] [place] [address] Mar, Bipolar I disorder, most rec ent episode (or current) mixed, moderate F31.62 [facility] [address] [facility] [id number] [address] [place] [address] Mar, Acute pain of left knee M25. 562 ; Left hip pain M25.552 ; Generalized edema R60.1 and Tongue swelling R22.0 [facility] [address] [facility] [id number] [address] [place] [address] Mar, [facility] [address] [facility] [id number] [address] [place] [address] Feb, Chronic pain G89.29 [facility] [address] [id number] [address] [place] [address] Feb, Diabetes E11.9 [facility] [address] [id number] [address] [place] [address] January, Chronic pain G89.29 [facility] [address] [facility] [id number] [address] [place] [phone] January, [facility] [address] [id number] [address] [place] [address] January, Bipolar I disorder, most rec ent episode (or current) mixed, moderate F31.62 [facility] [address] [facility] [id number] [address] [place] [address] Dec, Bipolar I disorder, most rec ent episode (or current) mixed, moderate F31.62 [facility] [address] [facility] [id number] [address] [place] [address] Dec, Chronic pain G89.29 [facility] [address] [id number] [address] [place] [address] Dec, Bipolar I disorder, most rec ent episode (or current) mixed, moderate F31.62 [facility] [address] [facility] [id number] [address] [place] [address] Dec, Diabetes E11.9 ; Essential h ypertension I10 ; Chronic pain G89.29 and Morbid obesity E66.01 [facility] [address] [id number] [address] [place] [address] Dec, [facility] [address] [facility] [id number] [address] [place] [address] Dec, Bipolar I disorder, most rec ent episode (or current) mixed, moderate F31.62 [facility] [address] [facility] [id number] [address] [place] [phone] Dec, Bipolar I disorder, most rec ent episode (or current) mixed, moderate F31.62 [place] [id number] [facility] [id number] [address] [place] [phone] Nov, Chronic pain G89.29 [facility] [address] [facility] [id number] [address] [place] [phone] Nov, Bipolar I disorder, most rec ent episode (or current) mixed, moderate F31.62 [facility] [address] [place] [id number] [address] [place] [phone] Nov, [facility] [address] [facility] [id number] [address] [place] [phone] Nov, Bipolar I disorder, most rec ent episode (or current) mixed, moderate F31.62 [facility] [address] [facility] [id number] [address] [place] [phone] Nov, Bipolar I disorder, most rec ent episode (or current) mixed, moderate F31.62 [facility] [address] [place] [id number] [address] [place] [phone] Nov, [facility] [address] [facility] [id number] [address] [place] [phone] Nov, [facility] [address] [place] [id number] [address] [place] [phone] Nov, [facility] [address] [facility] [id number] [address] [place] [phone] Oct, Chronic pain G89.29 [facility] [address] [place] [id number] [address] [place] [phone] Oct, Bipolar I disorder, most rec ent episode (or current) mixed, moderate F31.62 [facility] [address] [facility] [id number] [address] [place] [phone] Oct, [facility] [address] [place] [id number] [address] [place] [phone] 15 Oct, 2016 Chronic pain G89.29 ; Diabet es E11.9 ; Anxiety F41.9 and 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 [facility] [address] [id number] [address] [place] [phone] Oct, [facility] [address] [facility] [id number] [address] [place] [phone] Oct, Diabetes E11.9 [facility] [address] [id number] [address] [place] [phone] Oct, Bipolar I disorder, most rec ent episode (or current) mixed, moderate F31.62 [facility] [address] [id number] [address] [place] [address] Sep, Chronic pain G89.29 [facility] [address] [id number] [address] [place] [address] Sep, Chronic pain G89.29 [facility] [address] [facility] [id number] [address] [place] [address] Aug, Chronic pain G89.29 [facility] [address] [id number] [address] [place] [address] Jul, [facility] [address] [id number] [address] [place] [address] Jul, Diabetes E11.9 [facility] [address] [facility] [id number] [address] [place] [address] Jul, Chronic pain G89.29 [facility] [address] [facility] [id number] [address] [place] [phone] Jul, Bipolar I disorder, most rec ent episode (or current) mixed, moderate F31.62 [facility] [address] [id number] [address] [place] [phone] Jun, Bipolar I disorder, most rec ent episode (or current) mixed, moderate F31.62 [facility] [address] [facility] [id number] [address] [place] [phone] Jun, [facility] [address] [facility] [id number] [address] [place] [phone] Jun, Bipolar I disorder, most rec ent episode (or current) mixed, moderate F31.62 [facility] [address] [id number] [address] [place] [phone] 30 May, 2016 Insomnia, unspecified type G 47.00 [facility] [address] [facility] [id number] [address] [place] [phone] May, Bipolar I disorder, most rec ent episode (or current) mixed, moderate F31.62 [facility] [address] [facility] [id number] [address] [place] [phone] 14 May, 2016 [place] [address] [address] [facility] [id number] [address] [place] [address] May, Bipolar I disorder, most rec ent episode (or current) mixed, moderate F31.62 [place] [address] [address] [facility] [id number] [address] [place] [phone] May, Diabetes E11.9 and Essential hypertension I10 [place] [address] [address] [facility] [id number] [address] [place] [address] Apr, Chronic pain G89.29 [place] [address] [address] [facility] [id number] [address] [place] [address] Apr, Bipolar I disorder, most rec ent episode (or current) mixed, moderate F31.62 [place] [address] [address] [facility] [id number] [address] [place] [address] Apr, [place] [address] [address] [facility] [id number] [address] [place] [phone] Apr, [facility] [address] [facility] [id number] [address] [place] [address] Mar, Chronic pain G89.29 ; Headac he, unspecified headache type R51 ; Neuropathy G62.9 ; Pain of right hip joint M25.551 and Essential hypertension I10 [facility] [address] [facility] [id number] [address] [place] [address] Mar, Chronic pain G89.29 [facility] [address] [id number] [address] [place] [address] Mar, Bipolar I disorder, most rec ent episode (or current) mixed, moderate F31.62 [facility] [address] [id number] [address] [place] [address] Feb, Bipolar I disorder, most rec ent episode (or current) mixed, moderate F31.62 and Insomnia, unspecified type G47.00 [facility] [address] [id number] [address] [place] [address] Feb, Chronic pain G89.29 [facility] [address] [id number] [address] [place] [phone] Feb, Bipolar I disorder, most rec ent episode (or current) mixed, moderate F31.62 [facility] [address] [id number] [address] [place] [address] January, Bipolar I disorder, most rec ent episode (or current) mixed, moderate F31.62 [facility] [address] [id number] [address] [place] [address] January, Chronic pain G89.29 [facility] [address] [id number] [address] [place] [address] January, Chronic pain G89.29 and Esse ntial hypertension I10 [facility] [address] [id number] [address] [place] [address] January, Bipolar I disorder, most rec ent episode (or current) mixed, moderate F31.62 [facility] [address] [id number] [address] [place] [address] Dec, [facility] [address] [id number] [address] [place] [phone] Dec, [facility] [address] [facility] [id number] [address] [place] [phone] Dec, [facility] [address] [place] [id number] [address] [place] [address] Dec, [facility] [address] [address] Nov, Reactive airway disease J45. 909 [facility] [address] [address] Nov, [facility] [address] [address] Nov, [facility] [address] [address] Nov, [facility] [address] [address] Nov, [facility] [address] [address] Nov, Onychomycosis B35.1 ; Hammer toe M20.40 ; Jolon or callus L84 and DM neuro manif type II E11.49 [facility] [address] [address] Nov, Chronic pain G89.29 ; Leukoc ytosis D72.829 and Diabetes E11.9 [facility] [address] [place] [id number] [address] [place] [address] Nov, [facility] [address] [address] Oct, Bronchitis J40 [facility] [id number] [place] [address] Oct, [facility] [address] [address] Oct, [facility] [address] [place] [id number] [address] [place] [address] Oct, Mastoiditis, unspecified lat erality H70.90 and Type 2 diabetes mellitus with complication E11.8 [facility] [address] [place] [id number] [address] [place] [address] Sep, [facility] [address] [place] [id number] [address] [place] [address] Sep, Dysuria R30.0 ; Cough R05 ; Benign prostatic hyperplasia with lower urinary tract symptoms, unspecified morphology N40.1 ; Hypokalemia E87.6 and Eustachian tube dysfunction, unspecified laterality H69.80 [facility] [address] [place] [id number] [address] [place] [address] Sep, Moderate mixed bipolar I dis order F31.62 [facility] [address] [place] [id number] [place] [address] Sep, Hypokalemia E87.6 [facility] [address] [place] [id number] [address] [place] [address] Sep, [facility] [address] [place] [id number] [address] [place] [address] Sep, Upper respiratory tract infe ction, unspecified type J06.9 [facility] [address] [place] [id number] [address] [place] [address] Aug, [facility] [address] [place] [id number] [address] [place] [address] Aug, Dysuria R30.0 [facility] [address] [place] [id number] [address] [place] [address] Aug, [facility] [address] [place] [id number] [address] [place] [phone] Jul, [facility] [address] [place] [id number] [address] [place] [address] Jul, [facility] [address] [place] [id number] [address] [place] [address] Jul, [facility] [address] [place] [id number] [address] [place] [address] Jul, [facility] [address] [facility] [id number] [address] [place] [address] Jun, [facility] [address] [facility] [id number] [address] [place] [address] Jun, [facility] [address] [facility] [id number] [address] [place] [address] Jun, [facility] [address] [facility] [id number] [address] [place] [address] May, [facility] [address] [id number] [address] [place] [address] May, Bipolar I disorder, most rec ent episode (or current) mixed, moderate 296.62 [facility] [address] [facility] [id number] [address] [place] [address] May, [facility] [address] [facility] [id number] [address] [place] [address] May, Bipolar I disorder, most rec ent episode (or current) mixed, moderate 296.62 and Major depressive disorder, recurrent episode, severe, specified as with psychotic behavior 296.34 [facility] [address] [facility] [id number] [address] [place] [address] May, Bipolar I disorder, most rec ent episode (or current) mixed, moderate 296.62 [facility] [address] [facility] [id number] [address] [place] [address] May, [facility] [address] [facility] [id number] [address] [place] [phone] Apr, [facility] [address] [facility] [id number] [address] [place] [address] Apr, [facility] [address] [place] [id number] [address] [place] [address] Apr, Unspecified disorder of kidn ey and ureter 593.9 and Diabetes mellitus type 2, uncontrolled 250.02 [facility] [address] [facility] [id number] [address] [place] [address] Apr, [facility] [address] [facility] [id number] [address] [place] [address] Apr, [facility] [address] [facility] [id number] [address] [place] [address] Apr, [facility] [address] [facility] [id number] [address] [place] [address] Apr, [facility] [address] [facility] [id number] [address] [place] [address] Apr, Diabetes mellitus type II, u ncontrolled 250.02 [facility] [address] [place] [id number] [place] [address] Apr, [facility] [address] [place] [id number] [address] [place] [address] Mar, [facility] [address] [place] [id number] [address] [place] [address] Mar, [facility] [address] [facility] [id number] [address] [place] [address] Mar, [facility] [address] [place] [id number] [address] [place] [phone] Mar, Major depressive disorder, r ecurrent episode, severe, specified as with psychotic behavior 296.34 and Bipolar I disorder, most recent episode (or current) mixed, moderate 296.62 [facility] [address] [place] [id number] [address] [place] [address] Mar, Diabetes 250.00 ; Anuria 788 .5 ; Nausea and vomiting 787.01 and Diarrhea 787.91 [facility] [address] [facility] [id number] [address] [place] [address] Mar, Diabetes 250.00 [facility] [address] [place] [id number] [address] [place] [address] Mar, [facility] [address] [place] [id number] [address] [place] [address] Mar, Diabetes 250.00 [facility] [address] [address] Mar, [facility] [address] [address] Mar, [facility] [address] [address] Mar, [facility] [address] [address] Mar, [facility] [address] [address] Mar, Bipolar I disorder, most rec ent episode (or current) mixed, moderate 296.62 and Major depressive disorder, recurrent episode, severe, specified as with psychotic behavior 296.[address] [address] Mar, Magnesium deficiency 275.2 ; Hypokalemia 276.8 ; Nausea & vomiting 787.01 and Diabetes mellitus type 2, uncontrolled 250.02 [facility] [address] [address] Feb, [facility] [address] [address] Feb, Bipolar I disorder, most rec ent episode (or current) mixed, moderate 296.62 [facility] [address] [place] [id number] [address] [place] [address] Feb, Nausea and vomiting 787.01 ; Left elbow pain 719.42 ; Anuria 788.5 and Diabetes 250.00 [facility] [address] [address] Feb, [facility] [address] [address] Feb, Hypopotassemia 276.8 and Hyp okalemia 276.8 [facility] [address] [place] [address] Feb, Hypopotassemia 276.8 and Hyp okalemia 276.8 [facility] [address] [id number] [address] [place] [address] Feb, Seborrheic keratoses 702.19 [facility] [address] [id number] [address] [place] [address] Feb, Hypopotassemia 276.8 and Low magnesium levels 275.2 [facility] [address] [id number] [address] [place] [address] January, [facility] [address] [id number] [address] [place] [address] January, [facility] [address] [facility] [id number] [address] [place] [address] January, [facility] [address] [facility] [id number] [address] [place] [address] January, Scalp lesion 709.9 [facility] [address] [id number] [address] [place] [address] January, [facility] [address] [facility] [id number] [address] [place] [address] Dec, Tear of medial cartilage or meniscus of knee, current 836.0 and Chondromalacia 733.92 [facility] [address] [facility] [id number] [address] [place] [address] Dec, [facility] [address] [facility] [id number] [address] [place] [address] Dec, [facility] [address] [facility] [id number] [address] [place] [address] Dec, Squamous cell carcinoma, 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 [facility] [address] [id number] [address] [place] [phone] 14 Dec, 2014 [facility] [address] [facility] [id number] [address] [place] [address] Dec, [facility] [address] [id number] [address] [place] [address], [place] [address] Nov, [facility] [address] [id number] [address] [place] [address], [place] [address] Nov, [facility] [address] [id number] [address] [place] [address], [place] [address] Nov, [facility] [place] [facility] [address] [id number] [address] [place] [address], [place] [address] Nov, [facility] [address] [id number] [address] [place] [address], [place] [address] Nov, [facility] [address] [id number] [address] [place] [address], [place] [address] Nov, [facility] [address] [id number] [address] [place] [address], [place] [address] Nov, [facility] [place] [facility] [address] [id number] [address] [place] [address], [place] [address] Nov, [facility] [address] [id number] [address] [place] [address], [place] [address] Nov, [facility] [address] [id number] [address] [place] [address], [place] [address] Nov, [facility] [place] [facility] [address] [id number] [address] [place] [address], [place] [address] Nov, [facility] [place] [facility] [address] [id number] [address] [place] [phone] Nov, [facility] [place] [facility] [address] [id number] [address] [place] [address], [place] [address] Oct, [facility] [place] [facility] [address] [id number] [address] [place] [address], [place] [address] Oct, [facility] [place] [facility] [address] [id number] [address] [place] [address], [place] [address] Oct, [facility] [place] [facility] [address] [id number] [address] [place] [address], [place] [address] Oct, 2014 [facility] [address] [id number] [address] [place] [address], [place] [address] Oct, 2014 [facility] [place] [facility] [address] [id number] [address] [place] [address], [place] [address] Oct, 2014 [facility] [place] [facility] [address] [id number] [address] [place] [address], [place] [address] Oct, 2014 [facility] [address] [id number] [address] [place] [address], [place] [address] Oct, [facility] [address] [id number] [address] [place] [address], [place] [address] Oct, [facility] [address] [id number] [address] [place] [address], [place] [address] Sep, [facility] [address] [id number] [address] [place] [address], [place] [address] Sep, [facility] [address] [id number] [address] [place] [address], [place] [address] Sep, [facility] [address] [id number] [address] [place] [address], [place] [address] Sep, [facility] [address] [id number] [address] [place] [phone] Sep, [facility] [place] [facility] [address] [id number] [address] [place] [id number] Sep, [facility] [address] [id number] [address] [place] [address], [place] [address] Sep, [facility] [address] [id number] [address] [place] [address], [place] [address] Sep, [facility] [address] [id number] [address] [place] [id number] Sep, [facility] [address] [id number] [address] [place] [id number] Sep, [facility] [address] [id number] [address] [place] [address], [place] [address] Sep, [facility] [address] [id number] [address] [place] [address], [place] [address] Sep, [facility] [address] [id number] [address] [place] [address], [place] [address] Sep, [facility] [address] [id number] [address] [place] [address], [place] [address] Sep, [facility] [address] [id number] [address] [place] [address], [place] [address] Sep, [facility] [address] [id number] [address] [place] [address], [place] [address] Sep, [facility] [address] [id number] [address] [place] [address], [place] [address] Aug, [facility] [address] [id number] [address] [place] [address], [place] [address] Aug, [facility] [address] [id number] [address] [place] [address], [place] [address] Aug, [facility] [address] [id number] [address] [place] [address], [place] [address] Aug, [facility] [address] [id number] [address] [place] [address], [place] [address] Aug, [facility] [address] [id number] [address] [place] [address], [place] [address] 31 Aug, 2014 [facility] [address] [id number] [address] [place] [address], [place] [address] 17 Aug, 2014 [facility] [address] [id number] [address] [place] [address], [place] [address] 17 Aug, 2014 [facility] [address] [id number] [address] [place] [address], [place] [address] 12 Aug, 2014 [facility] [address] [id number] [facility] [place] [address] Aug, [facility] [address] [id number] [facility] [place] [address] Aug, [facility] [address] [place] [id number] Aug, [facility] [address] [id number] [facility] [place] [address] Aug, [facility] [address] [id number] [facility] [place] [address] Aug, [facility] [address] [id number] [address] [place] [address], [place] [address] Aug, [facility] [address] [id number] [address] [place] [address], [place] [address] Aug, [facility] [address] [id number] [address] [place] [address], [place] [address] Aug, [facility] [address] [id number] [address] [place] [address], [place] [address] Aug, [facility] [address] [id number] [address] [place] [address], [place] [address] Aug, [facility] [address] [id number] [address] [place] [address], [place] [address] Aug, [facility] [address] [id number] [address] [place] [address], [place] [address] Aug, [facility] [address] [id number] [address] [place] [address], [place] [address] Aug, [facility] [address] [id number] [address] [place] [address], [place] [address] Aug, [facility] [address] [id number] [address] [place] [address], [place] [address] Aug, [facility] [address] [id number] [address] [place] [address], [place] [address] Aug, [facility] [address] [id number] [address] [place] [address], [place] [address] Aug, [facility] [address] [id number] [address] [place] [address], [place] [address] Aug, [facility] [address] [id number] [address] [place] [address], [place] [address] Aug, [facility] [address] [id number] [address] [place] [address], [place] [address] Aug, [facility] [address] [id number] [address] [place] [address], [place] [address] Aug, [facility] [address] [id number] [address] [place] [address], [place] [address] Jul, [facility] [address] [id number] [address] [place] [address], [place] [address] Jul, [facility] [address] [id number] [address] [place] [address], [place] [address] Jul, [facility] [address] [id number] [address] [place] [address], [place] [address] Jul, [facility] [address] [id number] [address] [place] [address], [place] [address] Jul, [facility] [address] [id number] [address] [place] [address], [place] [address] Jul, [facility] [address] [id number] [address] [place] [address], [place] [address] Jul, [facility] [address] [id number] [address] [place] [address], [place] [address] Jul, [facility] [address] [id number] [address] [place] [address], [place] [address] Jul, [facility] [address] [id number] [address] [place] [address], [place] [address] Jul, [facility] [address] [id number] [address] [place] [address], [place] [address] Jun, [facility] [address] [id number] [address] [place] [address], [place] [address] Jun, [facility] [address] [id number] [address] [place] [address], [place] [address] Jun, [facility] [address] [id number] [address] [place] [address], [place] [address] Jun, [facility] [address] [id number] [address] [place] [address] Jun, [facility] [address] [id number] [address] [place] [address], [place] [address] Jun, [facility] [address] [id number] [address] [place] [address], [place] [address] Jun, [facility] [address] [id number] [address] [place] [address], [place] [address] Jun, [facility] [address] [id number] [address] [place] [address], [place] [address] Jun, [facility] [address] [id number] [address] [place] [address], [place] [address] Jun, [facility] [address] [id number] [address] [place] [address], [place] [address] 29 May, 2013 [facility] [address] [id number] [address] [place] [address], [place] [address] 29 Sep, 2013 [facility] [address] [id number] [address] [place] [address], [place] [address] 26 Sep, 2013 [facility] [address] [id number] [address] [place] [address], [place] [address] 26 Sep, 2013 [facility] [address] [id number] [address] [place] [address], [place] [address] 17 Sep, 2013 [facility] [address] [id number] [address] [place] [address], [place] [address] 17 May, 2013 [facility] [address] [id number] [facility] [place] [address] 15 Sep, 2013 [facility] [address] [id number] [facility] [place] [address] 15 May, 2013 [facility] [address] [id number] [address] [place] [address], [place] [address] 15 May, 2013 [facility] [address] [id number] [address] [place] [address], [place] [address] 15 May, 2013 [facility] [address] [id number] [address] [place] [address], [place] [address] 10 May, 2013 [facility] [address] [id number] [address] [place] [address], [place] [address] 10 May, 2013 [facility] [address] [id number] [address] [place] [address], [place] [address] 09 May, 2013 [facility] [address] [id number] [address] [place] [address], [place] [address] 09 May, 2013 [facility] [address] [id number] [address] [place] [address], [place] [address] 04 May, 2013 [facility] [address] [id number] [address] [place] [address], [place] [address] May, 2013 [facility] [address] [id number] [address] [place] [address], [place] [address] Apr, [facility] [address] [id number] [address] [place] [address], [place] [address] Apr, [facility] [address] [id number] [address] [place] [address], [place] [address] Apr, [facility] [address] [id number] [address] [place] [address], [place] [address] Apr, [facility] [address] [id number] [address] [place] [address], [place] [address] Apr, [facility] [address] [id number] [address] [place] [address], [place] [address] Apr, [facility] [address] [id number] [facility] [place] [address] Apr, [facility] [address] [id number] [facility] [place] [address] Apr, [facility] [address] [id number] [facility] [place] [address] Apr, [facility] [address] [id number] [address] [place] [address], [place] [address] Apr, [facility] [address] [id number] [address] [place] [address], [place] [address] Apr, [facility] [address] [id number] [address] [place] [address], [place] [address] Apr, [facility] [address] [id number] [address] [place] [address], [place] [address] Apr, [facility] [address] [id number] [address] [place] [address], [place] [address] Apr, [facility] [address] [id number] [address] [place] [address], [place] [address] Apr, [facility] [address] [id number] [address] [place] [address], [place] [address] Mar, [facility] [address] [id number] [address] [place] [address], [place] [address] Mar, [facility] [address] [id number] [address] [place] [address], [place] [address] Mar, [facility] [address] [id number] [address] [place] [address], [place] [address] Mar, [facility] [address] [id number] [address] [place] [address], [place] [address] Mar, [facility] [address] [id number] [address] [place] [address], [place] [address] Mar, [facility] [address] [id number] [address] [place] [address], [place] [address] Mar, 2013 [facility] [address] [id number] [address] [place] [address], [place] [address] Mar, 2013 [facility] [address] [id number] [address] [place] [address], [place] [address] Mar, 2013 [facility] [address] [id number] [address] [place] [address], [place] [address] Mar, 2013 [facility] [address] [id number] [address] [place] [address], [place] [address] Mar, 2013 [facility] [address] [id number] [address] [place] [address], [place] [address] Mar, 2013 [facility] [address] [id number] [address] [place] [address], [place] [address] Mar, 2013 [facility] [address] [id number] [address] [place] [address], [place] [address] Mar, 2013 [facility] [address] [id number] [address] [place] [address], [place] [address] Mar, 2013 [facility] [address] [id number] [address] [place] [address], [place] [address] Mar, 2013 [facility] [address] [id number] [address] [place] [address], [place] [address] Mar, [facility] [address] [id number] [address] [place] [address], [place] [address] Mar, [facility] [address] [id number] [address] [place] [address], [place] [address] Feb, [facility] [address] [id number] [address] [place] [address], [place] [address] Feb, [facility] [address] [id number] [address] [place] [address], [place] [address] Feb, [facility] [address] [id number] [address] [place] [address], [place] [address] Feb, [facility] [address] [id number] [facility] [place] [address] Feb, [facility] [address] [id number] [facility] [place] [address] Feb, [facility] [address] [id number] [facility] [place] [address] Feb, [facility] [address] [id number] [facility] [place] [address] Feb, [facility] [address] [id number] [facility] [place] [address] Feb, [facility] [address] [id number] [address] [place] [address], [place] [address] Feb, [facility] [address] [id number] [address] [place] [address], [place] [address] Feb, [facility] [address] [id number] [address] [place] [address], [place] [address] Feb, [facility] [address] [id number] [address] [place] [address], [place] [address] Feb, [facility] [address] [id number] [address] [place] [address], [place] [address] Feb, [facility] [address] [id number] [address] [place] [address], [place] [address] January, [facility] [address] [id number] [address] [place] [address], [place] [address] January, [facility] [address] [id number] [address] [place] [address], [place] [address] January, [facility] [address] [id number] [address] [place] [address], [place] [address] January, [facility] [address] [id number] [address] [place] [address], [place] [address] January, [facility] [address] [id number] [address] [place] [address], [place] [address] January, [facility] [address] [id number] [facility] [place] [address] January, [facility] [address] [id number] [address] [place] [address], [place] [address] January, [facility] [address] [id number] [address] [place] [address], [place] [address] January, [facility] [address] [id number] [address] [place] [address], [place] [address] January, [facility] [address] [id number] [address] [place] [address], [place] [address] January, [facility] [address] [id number] [address] [place] [address], [place] [address] January, [facility] [address] [id number] [address] [place] [address], [place] [address] January, [facility] [address] [id number] [address] [place] [address], [place] [address] January, [facility] [address] [id number] [address] [place] [address], [place] [address] Dec, [facility] [address] [id number] [address] [place] [address], [place] [address] Dec, [facility] [address] [id number] [address] [place] [address], [place] [address] Dec, [facility] [address] [id number] [address] [place] [address], [place] [address] Dec, [facility] [address] [id number] [address] [place] [address], [place] [address] Dec, [facility] [address] [id number] [address] [place] [address], [place] [address] Dec, [facility] [address] [id number] [address] [place] [address], [place] [address] Dec, [facility] [address] [id number] [facility] [place] [address] Dec, [facility] [address] [id number] [facility] [place] [address] Dec, [facility] [address] [id number] [facility] [place] [address] Dec, [facility] [address] [id number] [address] [place] [address], [place] [address] Nov, [facility] [address] [id number] [address] [place] [address], [place] [address] Nov, [facility] [address] [id number] [address] [place] [address], [place] [address] Nov, [facility] [address] [id number] [address] [place] [address], [place] [address] Nov, [facility] [address] [id number] [address] [place] [address], [place] [address] Nov, [facility] [address] [id number] [address] [place] [address], [place] [address] Nov, [facility] [address] [id number] [address] [place] [address], [place] [address] Nov, [facility] [address] [id number] [address] [place] [address], [place] [address] Nov, [facility] [address] [id number] [address] [place] [address], [place] [address] Nov, [facility] [address] [id number] [address] [place] [address], [place] [address] Nov, [facility] [address] [id number] [address] [place] [address], [place] [address] Oct, [facility] [address] [id number] [address] [place] [address], [place] [address] Oct, [facility] [address] [id number] [address] [place] [address], [place] [address] Oct, [facility] [address] [id number] [address] [place] [address], [place] [address] Oct, [facility] [address] [id number] [address] [place] [address], [place] [address] Oct, [facility] [address] [id number] [address] [place] [address], [place] [address] Oct, [facility] [address] [id number] [address] [place] [address], [place] [address] Oct, [facility] [address] [id number] [address] [place] [address], [place] [address] Oct, [facility] [address] [id number] [address] [place] [address], [place] [address] Oct, [facility] [address] [id number] [address] [place] [address], [place] [address] Oct, [facility] [address] [id number] [address] [place] [address], [place] [address] Oct, [facility] [address] [id number] [address] [place] [address], [place] [address] Oct, [facility] [address] [id number] [address] [place] [address], [place] [address] Oct, [facility] [address] [id number] [address] [place] [address], [place] [address] Oct, [facility] [address] [id number] [address] [place] [address], [place] [address] Sep, [facility] [address] [id number] [address] [place] [address], [place] [address] Sep, [facility] [address] [id number] [address] [place] [address], [place] [address] Sep, [facility] [address] [id number] [address] [place] [address], [place] [address] Sep, [facility] [address] [id number] [address] [place] [address], [place] [address] 14 Sep, 2013 [facility] [address] [id number] [address] [place] [address], [place] [address] 14 Sep, 2013 [facility] [address] [id number] [address] [place] [address], [place] [address] 14 Sep, 2013 [facility] [address] [id number] [address] [place] [address], [place] [address] Sep, [facility] [address] [id number] [address] [place] [address], [place] [address] 08 Sep, 2013 [facility] [address] [id number] [address] [place] [address], [place] [address] Sep, [facility] [address] [id number] [address] [place] [address], [place] [address] Aug, [facility] [address] [id number] [address] [place] [address], [place] [address] Aug, [facility] [address] [id number] [address] [place] [address], [place] [address] Jul, [facility] [address] [id number] [address] [place] [address], [place] [address] Jul, [facility] [address] [id number] [address] [place] [address], [place] [address] Jul, [facility] [address] [id number] [address] [place] [address], [place] [address] Jul, [facility] [address] [id number] [address] [place] [address], [place] [address] Jul, [facility] [address] [id number] [address] [place] [address], [place] [address] Jul, [facility] [address] [id number] [address] [place] [address], [place] [address] 12 Jul, 2013 [facility] [address] [id number] [address] [place] [address], [place] [address] Jul, [facility] [address] [id number] [address] [place] [address], [place] [address] Jul, [facility] [address] [id number] [address] [place] [address], [place] [address] Jul, [facility] [address] [id number] [address] [place] [address], [place] [address] Jul, [facility] [address] [id number] [address] [place] [address], [place] [address] Jul, [facility] [address] [id number] [address] [place] [address], [place] [address] Jul, [facility] [address] [id number] [address] [place] [address], [place] [address] Jul, [facility] [address] [id number] [address] [place] [address], [place] [address] Jul, [facility] [address] [id number] [address] [place] [id number] Jul, [facility] [address] [id number] [address] [place] [address] Jul, [facility] [address] [id number] [address] [place] [address] Jul, [facility] [address] [id number] [address] [place] [address] Jul, [facility] [address] [id number] [address] [place] [address] Jun, [facility] [address] [id number] [address] [place] [address], [place] [address] Jun, [facility] [address] [id number] [address] [place] [address] Jun, [facility] [address] [id number] [address] [place] [address] Jun, [facility] [address] [id number] [address] [place] [address], [place] [address] 16 Jun, 2012 [facility] [address] [id number] [address] [place] [address], [place] [address] 16 Jun, 2012 [facility] [address] [id number] [address] [place] [address], [place] [address] 10 Jun, 2013 [facility] [address] [id number] [address] [place] [address], [place] [address] 10 Jun, 2012 [facility] [address] [id number] [address] [place] [address], [place] [address] 09 Jun, 2013 [facility] [address] [id number] [address] [place] [address], [place] [address] Jun, [facility] [address] [id number] [address] [place] [address], [place] [address] Jun, [facility] [address] [id number] [address] [place] [address], [place] [address] 26 May, 2012 [facility] [address] [id number] [address] [place] [address], [place] [address] 25 May, 2012 [facility] [address] [id number] [address] [place] [address], [place] [address] 19 May, 2012 [facility] [address] [id number] [address] [place] [address], [place] [address] 17 May, 2012 [facility] [address] [id number] [address] [place] [address], [place] [address] 11 May, 2012 [facility] [address] [id number] [address] [place] [address], [place] [address] 10 May, 2012 [facility] [address] [id number] [address] [place] [address], [place] [address] 09 May, 2012 [facility] [address] [id number] [address] [place] [address], [place] [address] 05 May, 2012 [facility] [address] [id number] [address] [place] [address], [place] [address] 30 Apr, 2013 [facility] [address] [id number] [address] [place] [address], [place] [address] Apr, [facility] [address] [id number] [address] [place] [address], [place] [address] Apr, [facility] [address] [id number] [address] [place] [address], [place] [address] Apr, [facility] [address] [id number] [address] [place] [address], [place] [address] Apr, [facility] [address] [id number] [address] [place] [address], [place] [address] Mar, [facility] [address] [id number] [address] [place] [address], [place] [address] Mar, [facility] [address] [id number] [address] [place] [address], [place] [address] Mar, [facility] [address] [id number] [address] [place] [address], [place] [address] Mar, [facility] [address] [id number] [address] [place] [address], [place] [address] Mar, [facility] [address] [id number] [address] [place] [address], [place] [address] Mar, [facility] [address] [id number] [address] [place] [address], [place] [address] Mar, [facility] [address] [id number] [address] [place] [address], [place] [address] Mar, [facility] [address] [id number] [address] [place] [address], [place] [address] Feb, [facility] [address] [id number] [address] [place] [address], [place] [address] Feb, [facility] [address] [id number] [address] [place] [address], [place] [address] January, [facility] [address] [id number] [place] [address] January, [facility] [address] [id number] [address] [place] [address], [place] [address] Dec, [facility] [address] [id number] [address] [place] [address], [place] [address] Dec, [facility] [address] [id number] [address] [place] [address], [place] [address] Nov, [facility] [address] [id number] [address] [place] [address], [place] [address] Nov, [facility] [address] [id number] [address] [place] [address], [place] [address] Nov, [facility] [address] [id number] [address] [place] [address], [place] [address] Nov, [facility] [address] [id number] [address] [place] [address], [place] [address] Oct, [facility] [address] [id number] [address] [place] [address], [place] [address] Oct, [facility] [address] [id number] [address] [place] [address], [place] [id number] Oct, [facility] [address] [id number] [address] [place] [address], [place] [address] Oct, [facility] [address] [id number] [address] [place] [address], [place] [address] 16 Oct, 2012 [facility] [address] [id number] [address] [place] [address], [place] [address] 14 Oct, 2012 [facility] [address] [id number] [address] [place] [address], [place] [address] 08 Oct, 2012 [facility] [address] [id number] [address] [place] [address], [place] [address] 07 Oct, 2012 [facility] [address] [id number] [address] [place] [address] 03 Oct, 2012 [facility] [address] [id number] [address] [place] [address], [place] [address] Sep, [facility] [address] [id number] [address] [place] [address], [place] [address] Sep, [facility] [address] [id number] [address] [place] [address], [place] [address] Sep, [facility] [address] [id number] [address] [place] [address], [place] [address] Sep, [facility] [address] [id number] [address] [place] [address], [place] [address] Sep, [facility] [address] [id number] [address] [place] [address], [place] [address] Sep, [facility] [address] [id number] [address] [place] [address], [place] [address] Sep, [facility] [address] [id number] [address] [place] [address], [place] [address] Sep, [facility] [address] [id number] [address] [place] [address], [place] [address] Aug, [facility] [address] [id number] [address] [place] [address], [place] [address] Aug, [facility] [address] [id number] [address] [place] [address], [place] [address] Aug, [facility] [address] [id number] [address] [place] [address], [place] [address] Aug, [facility] [address] [id number] [address] [place] [address], [place] [address] Aug, [facility] [address] [id number] [address] [place] [address], [place] [address] Aug, [facility] [address] [id number] [address] [place] [address], [place] [address] 18 Aug, 2012 [facility] [address] [id number] [address] [place] [address] Aug, [facility] [address] [id number] [address] [place] [address], [place] [address] Jul, [facility] [address] [id number] [address] [place] [address], [place] [address] Jul, [facility] [address] [id number] [address] [place] [address], [place] [address] Jul, [facility] [address] [id number] [address] [place] [address] Jul, [facility] [address] [id number] [address] [place] [address], [place] [address] Jul, [facility] [address] [id number] [address] [place] [address], [place] [address] Jul, [facility] [address] [id number] [address] [place] [address], [place] [address] Jun, [facility] [address] [id number] [address] [place] [address] Jun, [facility] [address] [id number] [address] [place] [address], [place] [address] Jun, [facility] [address] [id number] [address] [place] [address] Jun, [facility] [address] [id number] [address] [place] [address] Jun, [facility] [address] [id number] [address] [place] [address] Jun, [facility] [address] [id number] [address] [place] [address], [place] [address] Jun, [facility] [address] [id number] [address] [place] [address] Jun, [facility] [address] [id number] [address] [place] [address], [place] [address] Jun, [facility] [address] [id number] [address] [place] [address], [place] [address] 26 May, 2012 [facility] [address] [id number] [address] [place] [address], [place] [address] 24 May, 2012 [facility] [address] [id number] [address] [place] [address], [place] [address] 18 May, 2012 [facility] [address] [id number] [address] [place] [address], [place] [address] 30 Apr, 2012 [facility] [address] [id number] [address] [place] [address], [place] [address] Apr, [facility] [address] [id number] [address] [place] [address], [place] [address] Apr, [facility] [address] [id number] [address] [place] [address], [place] [address] Apr, [facility] [address] [id number] [address] [place] [address], [place] [address] Apr, [facility] [address] [id number] [address] [place] [address], [place] [address] Apr, [facility] [address] [id number] [address] [place] [address], [place] [address] Mar, [facility] [address] [id number] [address] [place] [address], [place] [address] Mar, [facility] [address] [id number] [address] [place] [address], [place] [address] Mar, [facility] [address] [id number] [address] [place] [address], [place] [address] Mar, [facility] [address] [id number] [address] [place] [address], [place] [address] Feb, [facility] [address] [id number] [address] [place] [address], [place] [address] Feb, [facility] [address] [id number] [address] [place] [address], [place] [address] Feb, [facility] [address] [id number] [address] [place] [address], [place] [address] Feb, [facility] [address] [id number] [address] [place] [address], [place] [address] Feb, [facility] [address] [id number] [address] [place] [address], [place] [address] January, [facility] [address] [id number] [address] [place] [address], [place] [address] January, [facility] [address] [id number] [address] [place] [address], [place] [address] January, [facility] [address] [id number] [address] [place] [address], [place] [address] January, [facility] [address] [id number] [address] [place] [address], [place] [address] January, [facility] [address] [id number] [address] [place] [address], [place] [address] January, [facility] [address] [id number] [address] [place] [address], [place] [address] Dec, [facility] [address] [id number] [address] [place] [address], [place] [address] Dec, [facility] [address] [id number] [address] [place] [address], [place] [address] Dec, [facility] [address] [id number] [address] [place] [address], [place] [address] Dec, [facility] [address] [id number] [address] [place] [address], [place] [address] Dec, [facility] [address] [id number] [address] [place] [address], [place] [address] Nov, [facility] [address] [id number] [address] [place] [address], [place] [address] Nov, [facility] [address] [id number] [address] [place] [address], [place] [address] Nov, [facility] [address] [id number] [address] [place] [address], [place] [address] Nov, [facility] [address] [id number] [address] [place] [address], [place] [address] 29 Oct, 2011 [facility] [address] [id number] [address] [place] [address], [place] [address] 28 Oct, 2011 [facility] [address] [id number] [address] [place] [address], [place] [address] 24 Oct, 2011 [facility] [address] [id number] [address] [place] [address], [place] [address] 13 Oct, 2011 [facility] [address] [id number] [address] [place] [address], [place] [address] 08 Oct, 2011 [facility] [address] [id number] [address] [place] [address], [place] [address] Sep, [facility] [address] [id number] [address] [place] [address], [place] [address] Sep, [facility] [address] [id number] [address] [place] [address], [place] [address] Sep, [facility] [address] [id number] [address] [place] [address], [place] [address] Sep, [facility] [address] [id number] [address] [place] [address], [place] [address] Sep, [facility] [address] [id number] [address] [place] [address], [place] [address] Sep, [facility] [address] [id number] [address] [place] [address], [place] [address] Aug, [facility] [address] [id number] [address] [place] [address], [place] [address] Aug, [facility] [address] [id number] [address] [place] [address], [place] [address] Aug, [facility] [address] [id number] [address] [place] [address], [place] [address] Jul, [facility] [address] [id number] [address] [place] [address], [place] [address] Jul, [facility] [address] [id number] [address] [place] [address], [place] [address] Jul, [facility] [address] [id number] [address] [place] [address], [place] [address] Jul, [facility] [address] [id number] [address] [place] [address], [place] [address] Jun, [facility] [address] [id number] [address] [place] [address], [place] [address] Jun, [facility] [address] [id number] [address] [place] [address], [place] [address] Jun, [facility] [address] [id number] [address] [place] [address], [place] [address] Jun, [facility] [address] [id number] [address] [place] [address], [place] [address] Jun, [facility] [address] [id number] [address] [place] [address], [place] [address] Jun, [facility] [address] [id number] [address] [place] [address], [place] [address] Mar, [facility] [address] [id number] [address] [place] [address], [place] [address] Dec, [facility] [address] [id number] [address] [place] [address], [place] [address] Dec, [facility] [address] [id number] [address] [place] [address], [place] [address] Nov, [facility] [address] [id number] [address] [place] [address], [place] [address] 16 Nov, 2010 [facility] [address] [id number] [address] [place] [address], [place] [address] 10 Sep, 2010 [facility] [address] [id number] [address] [place] [address], [place] [address] 31 Aug, 2010 [facility] [address] [id number] [address] [place] [address], [place] [address] Aug, [facility] [address] [id number] [address] [place] [address], [place] [address] Aug, [facility] [address] [id number] [address] [place] [address], [place] [address] 29 Aug, 2010 [facility] [address] [id number] [address] [place] [address], [place] [address] 27 Aug, 2010 [facility] [address] [id number] [address] [place] [address], [place] [address] 14 Aug, 2010 [facility] [address] [id number] [address] [place] [address], [place] [address] 08 Aug, 2010 [facility] [address] [id number] [address] [place] [address], [place] [address] 08 Aug, 2010 [facility] [address] [id number] [address] [place] [address], [place] [address] 07 Aug, 2010 [facility] [address] [id number] [address] [place] [address], [place] [address] 06 Aug, 2010 [facility] [address] [id number] [address] [place] [address], [place] [address] Aug, [facility] [address] [id number] [address] [place] [address], [place] [address] Aug, [facility] [address] [id number] [address] [place] [address], [place] [address] Jul, [facility] [address] [id number] [address] [place] [address], [place] [address] Jul, [facility] [address] [id number] [address] [place] [address], [place] [address] Jul, [facility] [address] [id number] [address] [place] [address], [place] [address] 17 Jul, 2010 [facility] [address] [id number] [address] [place] [address], [place] [address] 08 Jul, 2010 [facility] [address] [id number] [address] [place] [address], [place] [address] Jul, [facility] [address] [id number] [address] [place] [address], [place] [address] 24 Jun, 2010 [facility] [address] [id number] [address] [place] [address], [place] [address] Jun, [facility] [address] [id number] [address] [place] [address], [place] [address] Jun, [facility] [address] [id number] [address] [place] [address], [place] [address] Jun, [facility] [address] [id number] [address] [place] [address], [place] [address] 16 Apr, 2010 [facility] [address] [id number] [address] [place] [address], [place] [address] Mar, [facility] [address] [id number] [address] [place] [address], [place] [address] Feb, [facility] [address] [id number] [address] [place] [address], [place] [address] January, [facility] [address] [id number] [address] [place] [address], [place] [address] 15 Dec, 2009 [facility] [address] [id number] [address] [place] [address], [place] [address] Nov, [facility] [address] [id number] [address] [place] [address], [place] [address] Aug, [facility] [address] [id number] [address] [place] [address], [place] [address] Aug, [facility] [address] [id number] [address] [place] [address], [place] [address] Aug, [facility] [address] [id number] [address] [place] [address] Jul, [facility] [address] [id number] [address] [place] [address] Jul, [facility] [address] [id number] [address] [place] [address] Jul, [facility] [address] [id number] [address] [place] [address] Jun, [facility] [address] [id number] [address] [place] [address] Jun, [facility] [address] [id number] [address] [place] [address] Jun, [facility] [address] [id number] [address] [place] [address] Jun, [facility] [address] [id number] [address] [place] [address] Jun, [facility] [address] [id number] [address] [place] [address] Jun, [facility] [address] [id number] [address] [place] [address] Apr, [facility] [address] [id number] [address] [place] [address] Apr, [facility] [address] [id number] [address] [place] [address] Feb, [facility] [address] [id number] [address] [place] [address] January, [facility] [address] [id number] [address] [place] [address] Dec, IMMUNIZATIONS No Known Immunizations SOCIAL HISTORY Never Assessed REASON FOR VISIT Controlled Med Refill 08/27 PLAN OF CARE VITAL SIGNS MEDICATIONS Medication Instructions Dosage Frequency Start Date End Date Duration S tatus Percocet 10-325 MG Orally 4 times a day 1 tablet as needed 6h 0 2 Aug, 2018 28 days Active RESULTS No Results [...] Medical History skin cancer-basal cell R religious (removed ) Medical History Arthritis Medical History [...] (Left) 2000 Surgical History EGD ([facility]) 2009 Surgical History colonoscopy 2009 ([facility]), 2013 ([facility] ) Surgical History heart cath: CAD w/ [...] inability to urinate 09/16/[address] [facility] inpatient mental health ea rly 1999's Hospitalization History hyperkalemia 10/2017 Hospitalization History fluid in lung
--- OUTSIDE RECORDS SUMMARY | 2020-03-01 18:27 | XMS REPORT ---
Author Michele Fuentes Organization [facility] Address [address] [place] [address] Care Team Providers Care Grease Packer Name Role Phone ROSELINE LUIS Unavailable PROBLEMS Type Condition ICD9-CM Code CLC77-IM Code Onset Dates Condition S tatus SNOMED Code Problem Lymphocytosis D72.820 Active 655841 09 Problem Chronic lymphocytic leukemia C91.10 A ctive 24662287 Problem Eye exam abnormal R93.8 Active 16 8151926 Problem Eustachian tube dysfunction, unspecified laterality H69.80 Active 90537365 Problem Dysuria R30.0 Active 29705722 Problem Cough R05 Active 97548644 Problem Hypokalemia E87.6 Active 96076488 Problem Bilateral primary osteoarthritis of knee M17.0 Active 090737186 Problem Benign prostatic hyperplasia with lower urinary tract symptoms, unspecified morphology N40.1 Active 74378 6007 Problem Retinal edema H35.81 Active 377071 6 Problem DM neuro manif type II E11.49 Active 09114640 Problem Anemia of chronic illness D63.8 Acti ve 516444816 Problem Falling R29.6 Active 031062389 Problem 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 Active 031834972 Problem Mild cognitive impairment G31.84 Acti ve 719204592 Problem Other chronic pain G89.29 Active 8 5258324 Problem Diabetes E11.9 Active 96015364 Problem Leukocytosis D72.829 Active 1725084 06 Problem Chronic pain G89.29 Active 4866785 1 Problem Pure hypercholesterolemia E78.00 Acti ve 205883181 Problem Bipolar disorder, in partial remission, most rec ent episode depressed F31.75 Active 25360604 Problem Other iron deficiency anemia D50.8 A ctive 24957608 Problem Primary osteoarthritis of right knee M17.11 Active 707891232350869 Problem Insomnia, unspecified type G47.00 Act sharon 701461039 Problem Anxiety F41.9 Active 33307815 Problem Reactive airway disease J45.909 Active 527677745125 Problem Bipolar I disorder, most recent episode (or curr ent) mixed, moderate F31.62 Active 21399650 Problem Diabetic polyneuropathy associated with type 2 d iabetes mellitus E11.42 Active 68945160 Problem Polyneuropathy associated with underlying disease G63 Active 266647352 Problem Morbid obesity E66.01 Active 65578 6002 Problem Essential hypertension I10 Active 76801660 ALLERGIES No Information ENCOUNTERS Encounter Location Date Diagnosis [facility] [address] [facility] [id number] [address] [place] [phone] Aug, [facility] [address] [facility] [id number] [address] [place] [address] Jul, Bipolar I disorder, most rec ent episode (or current) mixed, moderate F31.62 and Mild cognitive impairment G31.84 [facility] [address] [facility] [id number] [address] [place] [address] Jul, Bipolar I disorder, most rec ent episode (or current) mixed, moderate F31.62 and MCI (mild cognitive impairment) G31.84 [facility] [address] [facility] [id number] [address] [place] [address] Jul, [facility] [address] [facility] [id number] [address] [place] [phone] Jul, [facility] [address] [facility] [id number] [address] [place] [address] Jul, Bipolar I disorder, most rec ent episode (or current) mixed, moderate F31.62 [facility] [address] [facility] [id number] [address] [place] [address] Jul, Chronic pain G89.29 [facility] [address] [facility] [id number] [address] [place] [address] Jun, Bipolar I disorder, most rec ent episode (or current) mixed, moderate F31.62 [facility] [address] [facility] [id number] [address] [place] [phone] Jun, Pre-procedure lab exam Z01.8 12 [facility] [address] [id number] [address] [place] [phone] Jun, [facility] [address] [id number] [place] [id number] Jun, [facility] [address] [facility] [id number] [address] [place] [address] Jun, [facility] [address] [place] [id number] [address] [place] [address] Jun, Forgetfulness R68.89 ; Pre-s yncope R55 ; Localized edema R60.0 ; Other iron deficiency anemia D50.8 and BMI 50.0-59.9, adult Z68.43 [facility] [address] [facility] [id number] [address] [place] [phone] Jun, Chronic pain G89.29 [place] [address] [place] [id number] [address] [place] [address] Jun, Chronic pain G89.29 [facility] [address] [facility] [id number] [address] [place] [phone] Jun, Bipolar I disorder, most rec ent episode (or current) mixed, moderate F31.62 [facility] [address] [facility] [id number] [address] [place] [address] May, Chronic pain G89.29 [facility] [address] [facility] [id number] [address] [place] [phone] Apr, [facility] [address] [facility] [id number] [address] [place] [address] Apr, Chronic pain G89.29 [facility] [address] [facility] [id number] [address] [place] [id number] Apr, Primary osteoarthritis of ri ght knee M17.11 [facility] [address] [facility] [id number] [address] [place] [address] Mar, [facility] [address] [facility] [id number] [address] [place] [address] Mar, BMI 50.0-59.9, adult Z68.43 and Bipolar disorder, in partial remission, most recent episode depressed F31.75 [place] [address] [address] Mar, Diabetes E11.9 ; Pure hyperc holesterolemia E78.00 ; Essential hypertension I10 ; Nausea with vomiting, unspecified R11.2 and Headache, unspecified headache type R51 [place] [address] [address] Mar, Bipolar I disorder, most rec ent episode (or current) mixed, moderate F31.62 [place] [address] [address] Mar, Bipolar I disorder, most rec ent episode (or current) mixed, moderate F31.62 [place] [address] [address] Mar, Chronic pain G89.29 [place] [address] [address] Mar, Bipolar I disorder, most rec ent episode (or current) mixed, moderate F31.62 [place] [address] [place] [id number] [address] [place] [address] Feb, Bipolar I disorder, most rec ent episode (or current) mixed, moderate F31.62 [place] [address] [place] [id number] [address] [place] [address] Feb, Chronic pain G89.29 [place] [address] [place] [id number] [address] [place] [phone] 06 Feb, 2018 Decubitus ulcer of right josselin t, stage 3 L89.893 and BMI 50.0-59.9, adult Z68.43 [place] [address] [place] [id number] [address] [place] [address] Feb, Bipolar I disorder, most rec ent episode (or current) mixed, moderate F31.62 [facility] [address] [facility] [id number] [address] [place] [address] Feb, [facility] [address] [facility] [id number] [address] [place] [address] January, [place] [address] [place] [id number] [address] [place] [address] January, Chronic pain G89.29 [facility] [address] [facility] [id number] [address] [place] [address] January, Bipolar I disorder, most rec ent episode (or current) mixed, moderate F31.62 [place] [address] [facility] [id number] [address] [place] [address] January, Bipolar I disorder, most rec ent episode (or current) mixed, moderate F31.62 [place] [address] [place] [id number] [address] [place] [address] Dec, Bipolar I disorder, most rec ent episode (or current) mixed, moderate F31.62 and BMI 50.0-59.9, adult Z68.43 [place] [address] [place] [id number] [place] [address] Dec, Bipolar I disorder, most rec ent episode (or current) mixed, moderate F31.62 [place] [address] [place] [id number] [address] [place] [address] Dec, Chronic pain G89.29 [facility] [address] [facility] [id number] [address] [place] [address] Dec, DM neuro manif type II E11.4 9 ; Right flank pain R10.9 ; [facility] current use of opiate analgesic Z79.891 ; Encounter for medication monitoring Z51.81 and BMI 50.0-59.9, adult Z68.43 [place] [address] [place] [id number] [address] [place] [address] Dec, Bipolar I disorder, most rec ent episode (or current) mixed, moderate F31.62 [facility] [address] [facility] [id number] [address] [place] [phone] Nov, Bipolar I disorder, most rec ent episode (or current) mixed, moderate F31.62 [facility] [address] [facility] [id number] [address] [place] [phone] Nov, Chronic pain G89.29 [facility] [address] [place] [id number] [address] [place] [address] Nov, Bipolar I disorder, most rec ent episode (or current) mixed, moderate F31.62 [facility] [address] [facility] [id number] [address] [place] [address] Nov, Hypokalemia E87.6 [place] [address] [place] [id number] [address] [place] [phone] Nov, Bipolar I disorder, most rec ent episode (or current) mixed, moderate F31.62 [facility] [address] [place] [id number] [address] [place] [address] Oct, Chronic pain G89.29 [facility] [address] [place] [id number] [address] [place] [address] Oct, BMI 50.0-59.9, adult Z68.43 and Bipolar I disorder, most recent episode (or current) mixed, moderate F31.62 [place] [address] [place] [id number] [address] [place] [phone] Oct, Bipolar I disorder, most rec ent episode (or current) mixed, moderate F31.62 [facility] [address] [facility] [id number] [address] [place] [id number] Oct, [facility] [address] [facility] [id number] [address] [place] [phone] Oct, Hypokalemia E87.6 [facility] [address] [place] [id number] [address] [place] [address] Oct, DM neuro manif type II E11.4 9 [facility] [address] [facility] [id number] [address] [place] [phone] Oct, Bipolar I disorder, most rec ent episode (or current) mixed, moderate F31.62 [facility] [address] [facility] [id number] [address] [place] [phone] Oct, Bipolar I disorder, most rec ent episode (or current) mixed, moderate F31.62 [facility] [address] [facility] [id number] [address] [place] [phone] 14 Oct, 2017 Hyperkalemia E87.5 ; Falling R29.6 ; BMI 50.0-59.9, adult Z68.43 and Acute left ankle pain M25.572 [facility] [address] [facility] [id number] [address] [place] [phone] 08 Oct, 2017 DM neuro manif type II E11.4 9 [facility] [address] [facility] [id number] [address] [place] [id number] Oct, [facility] [address] [facility] [id number] [address] [place] [id number] Sep, Chronic pain G89.29 [facility] [address] [place] [id number] [address] [place] [address] Sep, [facility] [address] [place] [id number] [address] [place] [address] Sep, Bilateral primary osteoarthr itis of knee M17.0 [facility] [address] [facility] [id number] [address] [place] [phone] Sep, Generalized edema R60.1 [facility] [address] [place] [id number] [address] [place] [phone] Sep, Bipolar I disorder, most rec ent episode (or current) mixed, moderate F31.62 [facility] [address] [facility] [id number] [address] [place] [address] 15 Stef, 2018 Hypoxia R09.02 ; Other hyper volemia E87.79 ; Diabetes E11.9 ; Retinal edema H35.81 ; Hypokalemia E87.6 ; 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 ; Anemia of chronic illness D63.8 and BMI 50.0- 59.9, adult Z68.43 [facility] [address] [facility] [id number] [address] [place] [address] Sep, [facility] [address] [facility] [id number] [address] [place] [phone] Sep, Bipolar I disorder, most rec ent episode (or current) mixed, moderate F31.62 [place] [address] [place] [id number] [address] [place] [address] Aug, Chronic pain G89.29 [place] [address] [place] [id number] [address] [place] [address] Aug, Generalized edema R60.1 [facility] [address] [facility] [id number] [address] [place] [phone] Aug, [facility] [address] [facility] [id number] [address] [place] [phone] Aug, [facility] [address] [place] [id number] [address] [place] [phone] Aug, Bipolar I disorder, most rec ent episode (or current) mixed, moderate F31.62 [place] [address] [facility] [id number] [address] [place] [phone] Aug, Bipolar I disorder, most rec ent episode (or current) mixed, moderate F31.62 [place] [address] [facility] [id number] [address] [place] [address] Aug, Chronic pain G89.29 [facility] [address] [place] [id number] [address] [place] [address] Jul, Bipolar I disorder, most rec ent episode (or current) mixed, moderate F31.62 [place] [address] [facility] [id number] [address] [place] [address] Jul, Bipolar I disorder, most rec ent episode (or current) mixed, moderate F31.62 and BMI 60.0-69.9, adult Z68.44 [facility] [address] [place] [id number] [address] [place] [address] Jul, Bipolar I disorder, most rec ent episode (or current) mixed, moderate F31.62 [facility] [address] [place] [id number] [address] [place] [address] Jul, Chronic pain G89.29 [facility] [address] [place] [id number] [address] [place] [address] Jul, Bipolar I disorder, most rec ent episode (or current) mixed, moderate F31.62 [place] [address] [place] [id number] [address] [place] [phone] Jun, Polyneuropathy associated wi th underlying disease G63 and Diabetes E11.9 [facility] [address] [place] [id number] [address] [place] [address] Jun, Bipolar I disorder, most rec ent episode (or current) mixed, moderate F31.62 [place] [address] [place] [id number] [address] [place] [address] Jun, Chronic pain G89.29 [facility] [address] [place] [id number] [address] [place] [address] May, Bipolar I disorder, most rec ent episode (or current) mixed, moderate F31.62 [facility] [address] [place] [id number] [address] [place] [address] May, Bipolar I disorder, most rec ent episode (or current) mixed, moderate F31.62 [facility] [address] [place] [id number] [address] [place] [address] May, Diabetic polyneuropathy asso ciated with type 2 diabetes mellitus E11.42 [facility] [address] [place] [id number] [address] [place] [address] 18 May, 2017 Bipolar I disorder, most rec ent episode (or current) mixed, moderate F31.62 [facility] [address] [id number] [address] [place] [address] 13 May, 2017 Bipolar I disorder, most rec ent episode (or current) mixed, moderate F31.62 [facility] [address] [id number] [address] [place] [phone] May, Chronic pain G89.29 [facility] [address] [id number] [address] [place] [address] Apr, Bipolar I disorder, most rec ent episode (or current) mixed, moderate F31.62 [facility] [address] [id number] [address] [place] [phone] Apr, [facility] [address] [facility] [id number] [address] [place] [address] Apr, Chronic pain G89.29 and DM n euro manif type II E11.49 [facility] [address] [id number] [address] [place] [address] Apr, [facility] [address] [facility] [id number] [address] [place] [phone] Apr, Bipolar I disorder, most rec ent episode (or current) mixed, moderate F31.62 [facility] [address] [id number] [address] [place] [address] Apr, Chronic pain G89.29 [facility] [address] [id number] [address] [place] [address] Apr, Iliotibial band syndrome, le ft M76.32 [facility] [address] [facility] [id number] [address] [place] [address] Apr, Bipolar I disorder, most rec ent episode (or current) mixed, moderate F31.62 [facility] [address] [facility] [id number] [address] [place] [id number] Mar, Bipolar I disorder, most rec ent episode (or current) mixed, moderate F31.62 [facility] [address] [id number] [address] [place] [address] Mar, Bipolar I disorder, most rec ent episode (or current) mixed, moderate F31.62 [facility] [address] [id number] [address] [place] [address] Mar, [facility] [address] [facility] [id number] [address] [place] [address] Mar, Bipolar I disorder, most rec ent episode (or current) mixed, moderate F31.62 [facility] [address] [facility] [id number] [address] [place] [address] Mar, Chronic pain G89.29 [facility] [address] [facility] [id number] [address] [place] [address] Mar, Bipolar I disorder, most rec ent episode (or current) mixed, moderate F31.62 [facility] [address] [facility] [id number] [address] [place] [address] Mar, Bipolar I disorder, most rec ent episode (or current) mixed, moderate F31.62 [facility] [address] [facility] [id number] [address] [place] [address] Mar, Acute pain of left knee M25. 562 ; Left hip pain M25.552 ; Generalized edema R60.1 and Tongue swelling R22.0 [facility] [address] [facility] [id number] [address] [place] [address] Mar, [facility] [address] [facility] [id number] [address] [place] [phone] Feb, Chronic pain G89.29 [facility] [address] [facility] [id number] [address] [place] [address] Feb, Diabetes E11.9 [facility] [address] [facility] [id number] [address] [place] [address] January, Chronic pain G89.29 [place] [address] [facility] [id number] [address] [place] [address] January, [facility] [address] [place] [id number] [address] [place] [phone] January, Bipolar I disorder, most rec ent episode (or current) mixed, moderate F31.62 [facility] [address] [place] [id number] [address] [place] [address] Dec, Bipolar I disorder, most rec ent episode (or current) mixed, moderate F31.62 [place] [address] [facility] [id number] [address] [place] [address] Dec, Chronic pain G89.29 [place] [address] [place] [id number] [place] [address] Dec, Bipolar I disorder, most rec ent episode (or current) mixed, moderate F31.62 [place] [address] [address] Dec, Diabetes E11.9 ; Essential h ypertension I10 ; Chronic pain G89.29 and Morbid obesity E66.01 [place] [address] [place] [id number] [place] [id number] Dec, [place] [address] [place] [id number] [place] [phone] Dec, Bipolar I disorder, most rec ent episode (or current) mixed, moderate F31.62 [place] [address] [place] [id number] [place] [phone] Dec, Bipolar I disorder, most rec ent episode (or current) mixed, moderate F31.62 [place] [address] [place] [id number] [place] [phone] Nov, Chronic pain G89.29 [facility] [address] [place] [id number] [place] [phone] Nov, Bipolar I disorder, most rec ent episode (or current) mixed, moderate F31.62 [facility] [address] [facility] [id number] [address] [place] [phone] Nov, [facility] [address] [facility] [id number] [address] [place] [phone] Nov, Bipolar I disorder, most rec ent episode (or current) mixed, moderate F31.62 [facility] [address] [facility] [id number] [address] [place] [phone] Nov, Bipolar I disorder, most rec ent episode (or current) mixed, moderate F31.62 [facility] [address] [place] [id number] [place] [phone] Nov, [facility] [address] [place] [id number] [place] [phone] Nov, [facility] [address] [place] [id number] [place] [phone] Nov, [facility] [address] [place] [id number] [place] [phone] Oct, Chronic pain G89.29 [facility] [address] [place] [id number] [place] [phone] Oct, Bipolar I disorder, most rec ent episode (or current) mixed, moderate F31.62 [facility] [id number] [place] [phone] Oct, [facility] [address] [place] [id number] [place] [phone] Oct, Chronic pain G89.29 ; Diabet es E11.9 ; Anxiety F41.9 and 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 [facility] [address] [place] [id number] [place] [phone] 10 Oct, 2016 [facility] [address] [place] [id number] [place] [phone] Oct, Diabetes E11.9 [facility] [address] [place] [id number] [place] [phone] Oct, Bipolar I disorder, most rec ent episode (or current) mixed, moderate F31.62 [facility] [address] [facility] [id number] [address] [place] [address] Sep, Chronic pain G89.29 [facility] [address] [id number] [address] [place] [address] Sep, Chronic pain G89.29 [facility] [address] [id number] [address] [place] [address] Aug, Chronic pain G89.29 [facility] [address] [facility] [id number] [address] [place] [address] Jul, [facility] [address] [facility] [id number] [address] [place] [address] Jul, Diabetes E11.9 [facility] [address] [facility] [id number] [address] [place] [address] Jul, Chronic pain G89.29 [facility] [address] [facility] [id number] [address] [place] [id number] Jul, Bipolar I disorder, most rec ent episode (or current) mixed, moderate F31.62 [facility] [address] [facility] [id number] [address] [place] [phone] Jun, Bipolar I disorder, most rec ent episode (or current) mixed, moderate F31.62 [facility] [address] [facility] [id number] [address] [place] [phone] Jun, [facility] [address] [facility] [id number] [address] [place] [address] Jun, Bipolar I disorder, most rec ent episode (or current) mixed, moderate F31.62 [facility] [address] [facility] [id number] [address] [place] [address] May, Insomnia, unspecified type G 47.00 [facility] [address] [facility] [id number] [address] [place] [address] May, Bipolar I disorder, most rec ent episode (or current) mixed, moderate F31.62 [facility] [address] [facility] [id number] [address] [place] [phone] 14 May, 2016 [facility] [address] [facility] [id number] [address] [place] [address] May, Bipolar I disorder, most rec ent episode (or current) mixed, moderate F31.62 [facility] [address] [id number] [address] [place] [address] May, Diabetes E11.9 and Essential hypertension I10 [facility] [address] [facility] [id number] [address] [place] [address] Apr, Chronic pain G89.29 [facility] [address] [facility] [id number] [address] [place] [address] Apr, Bipolar I disorder, most rec ent episode (or current) mixed, moderate F31.62 [facility] [address] [facility] [id number] [address] [place] [address] Apr, [facility] [address] [facility] [id number] [address] [place] [address] Apr, [facility] [address] [facility] [id number] [address] [place] [address] Mar, Chronic pain G89.29 ; Headac he, unspecified headache type R51 ; Neuropathy G62.9 ; Pain of right hip joint M25.551 and Essential hypertension I10 [facility] [address] [facility] [id number] [address] [place] [address] Mar, Chronic pain G89.29 [facility] [address] [facility] [id number] [address] [place] [address] Mar, Bipolar I disorder, most rec ent episode (or current) mixed, moderate F31.62 [facility] [address] [place] [id number] [address] [place] [address] Feb, Bipolar I disorder, most rec ent episode (or current) mixed, moderate F31.62 and Insomnia, unspecified type G47.00 [facility] [address] [id number] [address] [place] [address] Feb, Chronic pain G89.29 [facility] [address] [id number] [address] [place] [address] Feb, Bipolar I disorder, most rec ent episode (or current) mixed, moderate F31.62 [facility] [address] [id number] [address] [place] [address] January, Bipolar I disorder, most rec ent episode (or current) mixed, moderate F31.62 [facility] [address] [id number] [address] [place] [id number] January, Chronic pain G89.29 [facility] [address] [id number] [address] [place] [address] January, Chronic pain G89.29 and Esse ntial hypertension I10 [facility] [address] [id number] [address] [place] [address] January, Bipolar I disorder, most rec ent episode (or current) mixed, moderate F31.62 [facility] [address] [id number] [address] [place] [phone] Dec, [facility] [address] [id number] [address] [place] [phone] Dec, [facility] [address] [id number] [address] [place] [phone] Dec, [facility] [address] [id number] [address] [place] [phone] Dec, [facility] [address] [id number] [address] [place] [address] Nov, Reactive airway disease J45. 909 [facility] [address] [id number] [address] [place] [phone] Nov, [facility] [address] [address] Nov, [facility] [address] [address] Nov, [place] [address] [address] Nov, [place] [address] [address] Nov, Onychomycosis B35.1 ; Hammer toe M20.40 ; [place] or callus L84 and DM neuro manif type II E11.49 [place] [address] [address] Nov, Chronic pain G89.29 ; Leukoc ytosis D72.829 and Diabetes E11.9 [place] [address] [address] Nov, [place] [address] [address] Oct, Bronchitis J40 [place] [address] [address] Oct, [place] [address] [address] Oct, [place] [address] [address] Oct, Mastoiditis, unspecified lat erality H70.90 and Type 2 diabetes mellitus with complication E11.8 [place] [address] [place] [id number] [address] [place] [address] Sep, [place] [address] [place] [id number] [address] [place] [address] Sep, Dysuria R30.0 ; Cough R05 ; Benign prostatic hyperplasia with lower urinary tract symptoms, unspecified morphology N40.1 ; Hypokalemia E87.6 and Eustachian tube dysfunction, unspecified laterality H69.80 [facility] [address] [id number] [address] [place] [address] Sep, Moderate mixed bipolar I dis order F31.62 [facility] [address] [id number] [address] [place] [phone] Sep, Hypokalemia E87.6 [facility] [address] [id number] [address] [place] [phone] Sep, [facility] [address] [id number] [address] [place] [address] Sep, Upper respiratory tract infe ction, unspecified type J06.9 [facility] [address] [id number] [address] [place] [phone] Aug, [facility] [address] [id number] [address] [place] [address] Aug, Dysuria R30.0 [facility] [address] [id number] [address] [place] [phone] Aug, [facility] [address] [id number] [address] [place] [phone] Jul, [facility] [address] [id number] [address] [place] [phone] Jul, [facility] [address] [id number] [address] [place] [phone] Jul, [facility] [address] [id number] [address] [place] [phone] Jul, [facility] [address] [id number] [address] [place] [address] Jun, [facility] [address] [id number] [address] [place] [phone] Jun, [facility] [address] [id number] [address] [place] [id number] Jun, [facility] [address] [id number] [address] [place] [phone] May, [facility] [address] [facility] [id number] [address] [place] [address] May, Bipolar I disorder, most rec ent episode (or current) mixed, moderate 296.62 [facility] [address] [facility] [id number] [address] [place] [address] May, [facility] [address] [facility] [id number] [address] [place] [address] May, Bipolar I disorder, most rec ent episode (or current) mixed, moderate 296.62 and Major depressive disorder, recurrent episode, severe, specified as with psychotic behavior 296.34 [facility] [address] [facility] [id number] [address] [place] [address] May, Bipolar I disorder, most rec ent episode (or current) mixed, moderate 296.62 [facility] [address] [facility] [id number] [address] [place] [phone] May, [facility] [address] [facility] [id number] [address] [place] [phone] Apr, [facility] [address] [facility] [id number] [address] [place] [phone] Apr, [facility] [address] [facility] [id number] [address] [place] [address] Apr, Unspecified disorder of kidn ey and ureter 593.9 and Diabetes mellitus type 2, uncontrolled 250.02 [facility] [address] [facility] [id number] [address] [place] [address] Apr, [facility] [address] [facility] [id number] [address] [place] [id number] Apr, [facility] [address] [facility] [id number] [address] [place] [phone] Apr, [facility] [address] [facility] [id number] [address] [place] [address] Apr, [facility] [address] [place] [id number] [place] [address] Apr, Diabetes mellitus type II, u ncontrolled 250.02 [facility] [address] [facility] [id number] [address] [place] [id number] Apr, [facility] [address] [place] [id number] [address] [place] [phone] Mar, [facility] [address] [place] [id number] [address] [place] [phone] Mar, [facility] [address] [place] [id number] [place] [address] Mar, [facility] [address] [place] [id number] [address] [place] [address] Mar, Major depressive disorder, r ecurrent episode, severe, specified as with psychotic behavior 296.34 and Bipolar I disorder, most recent episode (or current) mixed, moderate 296.62 [facility] [address] [place] [id number] [address] [place] [address] Mar, Diabetes 250.00 ; Anuria 788 .5 ; Nausea and vomiting 787.01 and Diarrhea 787.91 [facility] [address] [place] [id number] [address] [place] [address] Mar, Diabetes 250.00 [facility] [address] [place] [id number] [address] [place] [address] Mar, [facility] [address] [facility] [id number] [address] [place] [address] Mar, Diabetes 250.00 [facility] [address] [place] [id number] [address] [place] [address] Mar, [facility] [address] [place] [id number] [address] [place] [phone] Mar, [facility] [address] [place] [id number] [address] [place] [address] Mar, [facility] [address] [address] Mar, [facility] [address] [address] Mar, Bipolar I disorder, most rec ent episode (or current) mixed, moderate 296.62 and Major depressive disorder, recurrent episode, severe, specified as with psychotic behavior 296.34 [place] [address] [address] Mar, Magnesium deficiency 275.2 ; Hypokalemia 276.8 ; Nausea & vomiting 787.01 and Diabetes mellitus type 2, uncontrolled 250.02 [place] [address] [address] Feb, [address] [address] Feb, Bipolar I disorder, most rec ent episode (or current) mixed, moderate 296.[address] [address] Feb, Nausea and vomiting 787.01 ; Left elbow pain 719.42 ; Anuria 788.5 and Diabetes 250.[address] [address] Feb, [place] [address] [address] Feb, Hypopotassemia 276.8 and Hyp okalemia 276.[address] [address] Feb, Hypopotassemia 276.8 and Hyp okalemia 276.[address] [address] Feb, Seborrheic keratoses 702.19 [facility] [address] [id number] [address] [place] [address] Feb, Hypopotassemia 276.8 and Low magnesium levels 275.2 [facility] [address] [id number] [address] [place] [address] January, [facility] [address] [id number] [address] [place] [phone] January, [facility] [address] [id number] [address] [place] [phone] January, [facility] [address] [id number] [address] [place] [phone] January, Scalp lesion 709.9 [facility] [address] [id number] [address] [place] [id number] January, [facility] [address] [facility] [id number] [address] [place] [id number] Dec, Tear of medial cartilage or meniscus of knee, current 836.0 and Chondromalacia 733.92 [facility] [address] [id number] [address] [place] [address] Dec, [facility] [address] [id number] [address] [place] [phone] Dec, [facility] [address] [id number] [address] [place] [address] Dec, Squamous cell carcinoma, 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 [facility] [address] [id number] [address] [place] [phone] Dec, [facility] [address] [id number] [address] [place] [id number] Dec, [facility] [address] [id number] [address] [place] [address] Nov, [facility] [address] [id number] [address] [place] [phone] Nov, [facility] [address] [id number] [address] [place] [address], [place] [address] Nov, [facility] [address] [id number] [address] [place] [address], [place] [address] Nov, [facility] [address] [id number] [address] [place] [address], [place] [address] Nov, [facility] [address] [id number] [address] [place] [address], [place] [address] Nov, [facility] [address] [id number] [address] [place] [address], [place] [address] Nov, [facility] [address] [id number] [address] [place] [address], [place] [address] Nov, [facility] [address] [id number] [address] [place] [address], [place] [address] Nov, [facility] [address] [id number] [address] [place] [address], [place] [address] Nov, [facility] [address] [id number] [address] [place] [address], [place] [address] Nov, [facility] [address] [id number] [address] [place] [address], [place] [address] Nov, [facility] [address] [id number] [address] [place] [address], [place] [address] Oct, [facility] [address] [id number] [address] [place] [address], [place] [address] Oct, 2014 [facility] [address] [id number] [address] [place] [address], [place] [address] Oct, [facility] [address] [id number] [address] [place] [address], [place] [address] Oct, 2014 [facility] [address] [id number] [address] [place] [address], [place] [address] Oct, 2014 [facility] [address] [id number] [address] [place] [address], [place] [address] Oct, [facility] [address] [id number] [address] [place] [address], [place] [address] Oct, [facility] [address] [id number] [address] [place] [address], [place] [address] Oct, [facility] [address] [id number] [address] [place] [address], [place] [address] Oct, [facility] [address] [id number] [address] [place] [address], [place] [address] Sep, [facility] [address] [id number] [address] [place] [address], [place] [address] Sep, [facility] [address] [id number] [address] [place] [address], [place] [address] Sep, [facility] [address] [id number] [address] [place] [address], [place] [address] Sep, [facility] [address] [id number] [address] [place] [address], [place] [address] Sep, [facility] [address] [id number] [address] [place] [address], [place] [address] Sep, [facility] [address] [id number] [address] [place] [address], [place] [address] Sep, [facility] [address] [id number] [address] [place] [address], [place] [address] Sep, [facility] [address] [id number] [address] [place] [address], [place] [address] Sep, [facility] [address] [id number] [address] [place] [address], [place] [address] Sep, [facility] [address] [id number] [address] [place] [address], [place] [address] Sep, [facility] [address] [id number] [address] [place] [address], [place] [address] Sep, [facility] [address] [id number] [address] [place] [address], [place] [address] Sep, [facility] [address] [id number] [address] [place] [address], [place] [address] Sep, [facility] [address] [id number] [address] [place] [address], [place] [address] Sep, [facility] [address] [id number] [address] [place] [address], [place] [address] Sep, [facility] [address] [id number] [address] [place] [address], [place] [address] Aug, [facility] [address] [id number] [address] [place] [address], [place] [address] Aug, [facility] [address] [id number] [address] [place] [address], [place] [address] Aug, [facility] [address] [id number] [address] [place] [address], [place] [address] Aug, [facility] [address] [id number] [address] [place] [address], [place] [address] Aug, [facility] [address] [id number] [address] [place] [address], [place] [address] Aug, [facility] [address] [id number] [address] [place] [address], [place] [address] Aug, [facility] [address] [id number] [address] [place] [address], [place] [address] Aug, [facility] [address] [id number] [address] [place] [address], [place] [address] Aug, [facility] [address] [id number] [address] [place] [address], [place] [address] Aug, [facility] [address] [id number] [address] [place] [address], [place] [address] Aug, [facility] [place] [place], [place] [id number] Aug, [facility] [address] [id number] [facility] [place] [address] Aug, [facility] [address] [id number] [address] [place] [address], [place] [address] Aug, [facility] [address] [id number] [address] [place] [address], [place] [address] Aug, [facility] [address] [id number] [address] [place] [address], [place] [address] Aug, [facility] [address] [id number] [address] [place] [address], [place] [address] Aug, [facility] [address] [id number] [address] [place] [address], [place] [address] Aug, [facility] [address] [id number] [address] [place] [address], [place] [address] Aug, [facility] [address] [id number] [address] [place] [address], [place] [address] Aug, [facility] [address] [id number] [address] [place] [address], [place] [address] Aug, [facility] [address] [id number] [address] [place] [address], [place] [address] Aug, [facility] [address] [id number] [address] [place] [address], [place] [address] Aug, [facility] [address] [id number] [address] [place] [address], [place] [address] Aug, [facility] [address] [id number] [address] [place] [address], [place] [address] Aug, [facility] [address] [id number] [address] [place] [address], [place] [address] Aug, [facility] [address] [id number] [address] [place] [address], [place] [address] Aug, [facility] [address] [id number] [address] [place] [address], [place] [address] Aug, [facility] [address] [id number] [address] [place] [address], [place] [address] Aug, [facility] [address] [id number] [address] [place] [address], [place] [address] Aug, [facility] [address] [id number] [address] [place] [address], [place] [address] Jul, [facility] [address] [id number] [address] [place] [address], [place] [address] Jul, [facility] [address] [id number] [address] [place] [address], [place] [address] Jul, [facility] [address] [id number] [address] [place] [address], [place] [address] Jul, [facility] [address] [id number] [address] [place] [address], [place] [address] Jul, [facility] [address] [id number] [address] [place] [address], [place] [address] Jul, [facility] [address] [id number] [address] [place] [address], [place] [address] Jul, [facility] [address] [id number] [address] [place] [address], [place] [address] Jul, [facility] [address] [id number] [address] [place] [address], [place] [address] Jul, [facility] [address] [id number] [address] [place] [address], [place] [address] Jul, [facility] [address] [id number] [address] [place] [address], [place] [address] Jun, [facility] [address] [id number] [address] [place] [address], [place] [address] Jun, [facility] [address] [id number] [address] [place] [address], [place] [address] Jun, [facility] [address] [id number] [address] [place] [address], [place] [address] 16 Jun, 2014 [facility] [address] [id number] [address] [place] [address], [place] [address] 15 Jun, 2014 [facility] [address] [id number] [address] [place] [address], [place] [address] 15 Jun, 2014 [facility] [address] [id number] [address] [place] [address], [place] [address] Jun, [facility] [address] [id number] [address] [place] [address], [place] [address] Jun, [facility] [address] [id number] [address] [place] [address], [place] [address] Jun, [facility] [address] [id number] [address] [place] [address], [place] [address] Jun, [facility] [address] [id number] [address] [place] [address], [place] [address] 29 May, 2013 [facility] [address] [id number] [address] [place] [address], [place] [address] 29 Sep, 2013 [facility] [address] [id number] [address] [place] [address], [place] [address] 26 Sep, 2013 [facility] [address] [id number] [address] [place] [address], [place] [address] 26 Sep, 2013 [facility] [address] [id number] [address] [place] [address], [place] [address] 17 Sep, 2013 [facility] [address] [id number] [address] [place] [address], [place] [address] 17 Sep, 2013 [facility] [address] [id number] [address] [place] [address], [place] [address] 15 May, 2013 [facility] [address] [id number] [address] [place] [address], [place] [address] 15 May, 2013 [facility] [address] [id number] [address] [place] [address], [place] [address] 15 May, 2013 [facility] [address] [id number] [address] [place] [address], [place] [address] 15 May, 2013 [facility] [address] [id number] [address] [place] [address], [place] [address] May, 2013 [facility] [address] [id number] [address] [place] [address], [place] [address] 10 May, 2013 [facility] [address] [id number] [address] [place] [address], [place] [address] May, 2013 [facility] [address] [id number] [address] [place] [address], [place] [address] May, 2013 [facility] [address] [id number] [address] [place] [address], [place] [address] May, [facility] [address] [id number] [address] [place] [address], [place] [address] May, 2013 [facility] [address] [id number] [address] [place] [address], [place] [address] Apr, [facility] [address] [id number] [address] [place] [address], [place] [address] Apr, [facility] [address] [id number] [address] [place] [address], [place] [address] Apr, [facility] [address] [id number] [address] [place] [address], [place] [address] Apr, [facility] [address] [id number] [address] [place] [address], [place] [address] Apr, [facility] [address] [id number] [address] [place] [address], [place] [address] Apr, [facility] [address] [id number] [address] [place] [address], [place] [address] Apr, [facility] [address] [id number] [address] [place] [address], [place] [address] Apr, [facility] [address] [id number] [facility] [place] [address] Apr, [facility] [address] [id number] [facility] [place] [place] [address] Apr, [facility] [address] [id number] [facility] [place] [address] Apr, [facility] [address] [id number] [address] [place] [address], [place] [address] Apr, [facility] [address] [id number] [address] [place] [address], [place] [address] Apr, [facility] [address] [id number] [address] [place] [address], [place] [address] Apr, [facility] [address] [id number] [address] [place] [address], [place] [address] Apr, [facility] [address] [id number] [address] [place] [address], [place] [address] Mar, [facility] [address] [id number] [address] [place] [address], [place] [address] Mar, [facility] [address] [id number] [address] [place] [address], [place] [address] Mar, [facility] [address] [id number] [address] [place] [address], [place] [address] Mar, [facility] [address] [id number] [address] [place] [address], [place] [address] Mar, [facility] [address] [id number] [address] [place] [address], [place] [address] Mar, [facility] [address] [id number] [address] [place] [address], [place] [address] Mar, [facility] [address] [id number] [address] [place] [address], [place] [address] Mar, [facility] [address] [id number] [address] [place] [address], [place] [address] Mar, [facility] [address] [id number] [facility] [place] [place] [address] Mar, 2013 [facility] [address] [id number] [address] [place] [address], [place] [address] Mar, 2013 [facility] [address] [id number] [address] [place] [address], [place] [address] Mar, 2013 [facility] [address] [id number] [address] [place] [address], [place] [address] Mar, 2013 [facility] [address] [id number] [address] [place] [address], [place] [address] Mar, 2013 [facility] [address] [id number] [address] [place] [address], [place] [address] Mar, 2013 [facility] [address] [id number] [address] [place] [address], [place] [address] Mar, 2013 [facility] [address] [id number] [address] [place] [address], [place] [address] Mar, 2013 [facility] [address] [id number] [address] [place] [address], [place] [address] Mar, [facility] [address] [id number] [address] [place] [address], [place] [address] Feb, [facility] [address] [id number] [address] [place] [address], [place] [address] Feb, [facility] [address] [id number] [address] [place] [address], [place] [address] Feb, [facility] [address] [id number] [address] [place] [address], [place] [address] Feb, [facility] [address] [id number] [address] [place] [address], [place] [address] Feb, [facility] [address] [id number] [address] [place] [address], [place] [address] Feb, [facility] [address] [id number] [address] [place] [address], [place] [address] Feb, [facility] [address] [id number] [facility] [place] [address] Feb, [facility] [address] [id number] [facility] [place] [place] [address] Feb, [facility] [address] [id number] [facility] [place] [place] [address] Feb, [facility] [address] [id number] [facility] [place] [place] [address] Feb, [facility] [address] [id number] [address] [place] [address], [place] [address] Feb, [facility] [address] [id number] [address] [place] [address], [place] [address] Feb, [facility] [address] [id number] [address] [place] [address], [place] [address] Feb, [facility] [address] [id number] [address] [place] [address], [place] [address] January, [facility] [address] [id number] [address] [place] [address], [place] [address] January, [facility] [address] [id number] [address] [place] [address], [place] [address] January, [facility] [address] [id number] [address] [place] [address], [place] [address] January, [facility] [address] [id number] [address] [place] [address], [place] [address] January, [facility] [address] [id number] [address] [place] [address], [place] [address] January, [facility] [address] [id number] [address] [place] [address], [place] [address] January, [facility] [address] [id number] [address] [place] [address], [place] [address] January, [facility] [address] [id number] [address] [place] [address], [place] [address] January, [facility] [address] [id number] [address] [place] [address], [place] [address] January, [facility] [address] [id number] [address] [place] [address], [place] [address] January, [facility] [address] [id number] [address] [place] [address], [place] [address] January, [facility] [address] [id number] [address] [place] [address], [place] [address] January, [facility] [address] [id number] [address] [place] [address], [place] [address] January, [facility] [address] [id number] [address] [place] [address], [place] [address] Dec, [facility] [address] [id number] [address] [place] [address], [place] [address] Dec, [facility] [address] [id number] [address] [place] [address], [place] [address] Dec, [facility] [address] [id number] [address] [place] [address], [place] [address] Dec, [facility] [address] [id number] [address] [place] [address], [place] [address] Dec, [facility] [address] [id number] [address] [place] [address], [place] [address] Dec, [facility] [address] [id number] [address] [place] [address], [place] [address] Dec, [facility] [address] [id number] [address] [place] [address], [place] [address] Dec, [facility] [address] [id number] [address] [place] [address], [place] [address] Dec, [facility] [address] [id number] [address] [place] [address], [place] [address] Dec, [facility] [address] [id number] [facility] [place] [address] Nov, [facility] [address] [id number] [facility] [place] [place] [address] Nov, [facility] [address] [id number] [facility] [place] [place] [address] Nov, [facility] [address] [id number] [address] [place] [address], [place] [address] Nov, [facility] [address] [id number] [facility] [place] [place] [address] Nov, [facility] [address] [id number] [address] [place] [address], [place] [address] Nov, [facility] [address] [id number] [address] [place] [address], [place] [address] Nov, [facility] [address] [id number] [address] [place] [address], [place] [address] Nov, [facility] [address] [id number] [address] [place] [address], [place] [address] Nov, [facility] [address] [id number] [address] [place] [address], [place] [address] Nov, [facility] [address] [id number] [address] [place] [address], [place] [address] Oct, [facility] [address] [id number] [address] [place] [address], [place] [address] Oct, [facility] [address] [id number] [address] [place] [address], [place] [address] Oct, [facility] [address] [id number] [address] [place] [address], [place] [address] Oct, [facility] [address] [id number] [address] [place] [address], [place] [address] Oct, [facility] [address] [id number] [address] [place] [address], [place] [address] Oct, [facility] [address] [id number] [address] [place] [address], [place] [address] Oct, [facility] [address] [id number] [address] [place] [address], [place] [address] Oct, [facility] [address] [id number] [address] [place] [address], [place] [address] Oct, [facility] [address] [id number] [address] [place] [address], [place] [address] Oct, [facility] [address] [id number] [address] [place] [address], [place] [address] Oct, [facility] [address] [id number] [address] [place] [address], [place] [address] Oct, [facility] [address] [id number] [address] [place] [address], [place] [address] Oct, [facility] [address] [id number] [address] [place] [address], [place] [address] Oct, [facility] [address] [id number] [address] [place] [address], [place] [address] Sep, [facility] [address] [id number] [address] [place] [address] Sep, [facility] [address] [id number] [address] [place] [address] Sep, [facility] [address] [id number] [address] [place] [address], [place] [address] Sep, [facility] [address] [id number] [address] [place] [address], [place] [address] Sep, [facility] [address] [id number] [address] [place] [address] Sep, [facility] [address] [id number] [address] [place] [address], [place] [address] 14 Sep, 2013 [facility] [address] [id number] [address] [place] [address], [place] [address] 14 Sep, 2013 [facility] [address] [id number] [address] [place] [address], [place] [address] 08 Sep, 2013 [facility] [address] [id number] [address] [place] [address], [place] [address] Sep, [facility] [address] [id number] [address] [place] [address], [place] [address] Aug, [facility] [address] [id number] [address] [place] [address], [place] [address] Aug, [facility] [address] [id number] [address] [place] [address], [place] [address] Jul, [facility] [address] [id number] [address] [place] [address], [place] [address] Jul, [facility] [address] [id number] [address] [place] [address], [place] [address] Jul, [facility] [address] [id number] [address] [place] [address], [place] [address] Jul, [facility] [address] [id number] [address] [place] [address], [place] [address] Jul, [facility] [address] [id number] [address] [place] [address], [place] [address] Jul, [facility] [address] [id number] [address] [place] [address], [place] [address] Jul, [facility] [address] [id number] [address] [place] [address], [place] [address] Jul, [facility] [address] [id number] [address] [place] [address], [place] [address] Jul, [facility] [address] [id number] [address] [place] [address], [place] [address] Jul, [facility] [address] [id number] [address] [place] [address], [place] [address] 07 Jul, 2012 [facility] [address] [id number] [address] [place] [address], [place] [address] Jul, 2012 [facility] [address] [id number] [address] [place] [address], [place] [address] Jul, 2012 [facility] [address] [id number] [address] [place] [address], [place] [address] Jul, 2012 [facility] [address] [id number] [address] [place] [address], [place] [address] Jul, 2012 [facility] [address] [id number] [address] [place] [address], [place] [address] Jul, 2012 [facility] [address] [id number] [address] [place] [address], [place] [address] Jul, [facility] [address] [id number] [address] [place] [address], [place] [address] Jul, [facility] [address] [id number] [address] [place] [address], [place] [address] Jul, [facility] [address] [id number] [address] [place] [address], [place] [address] Jun, [facility] [address] [id number] [address] [place] [address], [place] [address] Jun, 2012 [facility] [address] [id number] [address] [place] [address], [place] [address] Jun, 2012 [facility] [address] [id number] [address] [place] [address], [place] [address] Jun, 2012 [facility] [address] [id number] [address] [place] [address], [place] [address] Jun, 2012 [facility] [address] [id number] [address] [place] [address], [place] [address] Jun, [facility] [address] [id number] [address] [place] [address], [place] [address] Jun, [facility] [address] [id number] [address] [place] [address], [place] [address] Jun, [facility] [address] [id number] [address] [place] [address], [place] [address] Jun, [facility] [address] [id number] [address] [place] [address], [place] [address] Jun, [facility] [address] [id number] [address] [place] [address], [place] [address] Jun, [facility] [address] [id number] [address] [place] [address], [place] [address] 26 May, 2013 [facility] [address] [id number] [address] [place] [address], [place] [address] 25 May, 2013 [facility] [address] [id number] [address] [place] [address], [place] [address] 19 May, 2013 [facility] [address] [id number] [address] [place] [address], [place] [address] 17 May, 2013 [facility] [address] [id number] [address] [place] [address], [place] [address] 11 May, 2013 [facility] [address] [id number] [address] [place] [address], [place] [address] 10 May, 2013 [facility] [address] [id number] [address] [place] [address], [place] [address] May, [facility] [address] [id number] [address] [place] [address], [place] [address] 05 May, 2013 [facility] [address] [id number] [address] [place] [address], [place] [address] Apr, [facility] [address] [id number] [address] [place] [address], [place] [address] Apr, [facility] [address] [id number] [address] [place] [address], [place] [address] Apr, [facility] [address] [id number] [address] [place] [address], [place] [address] Apr, [facility] [address] [id number] [address] [place] [address], [place] [address] Apr, [facility] [address] [id number] [address] [place] [address], [place] [address] Mar, [facility] [address] [id number] [address] [place] [address], [place] [address] Mar, [facility] [address] [id number] [address] [place] [address], [place] [address] Mar, [facility] [address] [id number] [address] [place] [address], [place] [address] Mar, [facility] [address] [id number] [address] [place] [address], [place] [address] Mar, [facility] [address] [id number] [address] [place] [address], [place] [address] Mar, [facility] [address] [id number] [address] [place] [address], [place] [address] Mar, [facility] [address] [id number] [address] [place] [address], [place] [address] Mar, [facility] [address] [id number] [address] [place] [address], [place] [address] Feb, [facility] [address] [id number] [address] [place] [address], [place] [address] Feb, [facility] [address] [id number] [address] [place] [address], [place] [address] January, [facility] [address] [id number] [address] [place] [address], [place] [address] January, [facility] [address] [id number] [address] [place] [address], [place] [address] Dec, [facility] [address] [id number] [address] [place] [address], [place] [address] Dec, [facility] [address] [id number] [facility] [place] [address] Nov, [facility] [address] [id number] [address] [place] [address], [place] [address] Nov, [facility] [address] [id number] [address] [place] [address], [place] [address] Nov, [facility] [address] [id number] [address] [place] [address], [place] [address] Nov, [facility] [address] [id number] [address] [place] [address], [place] [address] Oct, [facility] [address] [id number] [address] [place] [address], [place] [address] Oct, [facility] [address] [id number] [address] [place] [address], [place] [address] Oct, [facility] [address] [id number] [address] [place] [address], [place] [address] 26 Oct, 2012 [facility] [address] [id number] [address] [place] [address], [place] [address] 16 Oct, 2012 [facility] [address] [id number] [address] [place] [address], [place] [address] 14 Oct, 2012 [facility] [address] [id number] [address] [place] [address], [place] [address] 08 Oct, 2012 [facility] [address] [id number] [address] [place] [address], [place] [address] 07 Oct, 2012 [facility] [address] [id number] [address] [place] [address], [place] [address] 03 Oct, 2012 [facility] [address] [address] [id number] [address] [place] [address], [place] [address] 30 Sep, 2012 [facility] [address] [id number] [address] [place] [address], [place] [address] Sep, [facility] [address] [id number] [address] [place] [address], [place] [address] 23 Sep, 2012 [facility] [address] [id number] [address] [place] [address], [place] [address] Sep, [facility] [address] [id number] [address] [place] [address], [place] [address] 17 Sep, 2012 [facility] [address] [id number] [address] [place] [address], [place] [address] Sep, [facility] [address] [id number] [address] [place] [address], [place] [address] Sep, [facility] [address] [id number] [address] [place] [address], [place] [address] Sep, [facility] [address] [id number] [address] [place] [address], [place] [address] Aug, [facility] [address] [id number] [address] [place] [address], [place] [address] Aug, [facility] [address] [id number] [address] [place] [address], [place] [address] Aug, [facility] [address] [id number] [address] [place] [address], [place] [address] Aug, [facility] [address] [id number] [address] [place] [address], [place] [address] Aug, [facility] [address] [id number] [address] [place] [address], [place] [address] Aug, [facility] [address] [id number] [address] [place] [address], [place] [address] Aug, [facility] [address] [id number] [address] [place] [address], [place] [address] Aug, [facility] [address] [id number] [address] [place] [address], [place] [address] Jul, [facility] [address] [id number] [address] [place] [address], [place] [address] Jul, [facility] [address] [id number] [address] [place] [address], [place] [address] Jul, [facility] [address] [id number] [address] [place] [address], [place] [address] Jul, [facility] [address] [id number] [address] [place] [address], [place] [address] Jul, [facility] [address] [id number] [address] [place] [address], [place] [address] Jul, [facility] [address] [id number] [address] [place] [address], [place] [address] Jun, [facility] [address] [id number] [address] [place] [address], [place] [address] Jun, [facility] [address] [id number] [address] [place] [address], [place] [address] Jun, [facility] [address] [id number] [address] [place] [address], [place] [address] Jun, [facility] [address] [id number] [address] [place] [address], [place] [address] Jun, [facility] [address] [id number] [address] [place] [address], [place] [address] Jun, [facility] [address] [id number] [address] [place] [address], [place] [address] Jun, [facility] [address] [id number] [address] [place] [address], [place] [address] Jun, [facility] [address] [id number] [address] [place] [address], [place] [address] Jun, [facility] [address] [id number] [address] [place] [address], [place] [address] 26 May, 2012 [facility] [address] [id number] [address] [place] [address], [place] [address] 24 May, 2012 [facility] [address] [id number] [address] [place] [address], [place] [address] May, [facility] [address] [id number] [address] [place] [address], [place] [address] Apr, [facility] [address] [id number] [address] [place] [address], [place] [address] Apr, [facility] [address] [id number] [address] [place] [address], [place] [address] Apr, [facility] [address] [id number] [address] [place] [address], [place] [address] Apr, [facility] [address] [id number] [address] [place] [address], [place] [address] Apr, [facility] [address] [id number] [address] [place] [address], [place] [address] Apr, [facility] [address] [id number] [address] [place] [address], [place] [address] Mar, [facility] [address] [id number] [address] [place] [address], [place] [address] Mar, [facility] [address] [id number] [address] [place] [address], [place] [address] Mar, [facility] [address] [id number] [address] [place] [address], [place] [address] Mar, [facility] [address] [id number] [address] [place] [address], [place] [address] Feb, [facility] [address] [id number] [address] [place] [address], [place] [address] Feb, [facility] [address] [id number] [address] [place] [address], [place] [address] Feb, [facility] [address] [id number] [address] [place] [address], [place] [address] Feb, [facility] [address] [id number] [address] [place] [address], [place] [address] Feb, [facility] [address] [id number] [address] [place] [address], [place] [address] January, [facility] [address] [id number] [address] [place] [address], [place] [address] January, [facility] [address] [id number] [address] [place] [address], [place] [address] January, [facility] [address] [id number] [address] [place] [address], [place] [address] January, [facility] [address] [id number] [address] [place] [address], [place] [address] January, [facility] [address] [id number] [address] [place] [address], [place] [address] January, [facility] [address] [id number] [address] [place] [address], [place] [address] Dec, [facility] [address] [id number] [address] [place] [address], [place] [address] Dec, [facility] [address] [id number] [address] [place] [address], [place] [address] Dec, [facility] [address] [id number] [address] [place] [address], [place] [address] Dec, [facility] [address] [id number] [address] [place] [address], [place] [address] Dec, [facility] [address] [id number] [address] [place] [address], [place] [address] Nov, [facility] [address] [id number] [address] [place] [address], [place] [address] Nov, [facility] [address] [id number] [address] [place] [address], [place] [address] Nov, [facility] [address] [id number] [address] [place] [address], [place] [address] Nov, [facility] [address] [id number] [address] [place] [address], [place] [address] Oct, [facility] [address] [id number] [address] [place] [address], [place] [address] 28 Oct, 2011 [facility] [address] [id number] [address] [place] [address], [place] [address] 24 Oct, 2011 [facility] [address] [id number] [address] [place] [address], [place] [address] Oct, [facility] [address] [id number] [address] [place] [address], [place] [address] Oct, [facility] [address] [id number] [address] [place] [address], [place] [address] Sep, [facility] [address] [id number] [address] [place] [address], [place] [address] Sep, [facility] [address] [id number] [address] [place] [address], [place] [address] Sep, [facility] [address] [id number] [address] [place] [address], [place] [address] Sep, [facility] [address] [id number] [address] [place] [address], [place] [address] Sep, [facility] [address] [id number] [address] [place] [address], [place] [address] Sep, [facility] [address] [id number] [address] [place] [address], [place] [address] Aug, [facility] [address] [id number] [address] [place] [address], [place] [address] Aug, [facility] [address] [id number] [address] [place] [address], [place] [address] Aug, [facility] [address] [id number] [address] [place] [address], [place] [address] Jul, [facility] [address] [id number] [address] [place] [address], [place] [address] Jul, [facility] [address] [id number] [address] [place] [address], [place] [address] 10 Jul, 2011 [facility] [address] [id number] [address] [place] [address], [place] [address] Jul, [facility] [address] [id number] [address] [place] [address], [place] [address] Jun, [facility] [address] [id number] [address] [place] [address], [place] [address] Jun, [facility] [address] [id number] [address] [place] [address], [place] [address] Jun, [facility] [address] [id number] [address] [place] [address], [place] [address] Jun, [facility] [address] [id number] [address] [place] [address], [place] [address] Jun, [facility] [address] [id number] [address] [place] [address], [place] [address] Jun, [facility] [address] [id number] [address] [place] [address], [place] [address] Mar, [facility] [address] [id number] [address] [place] [address], [place] [address] Dec, [facility] [address] [id number] [address] [place] [address], [place] [address] Dec, [facility] [address] [id number] [address] [place] [address], [place] [address] Nov, [facility] [address] [id number] [address] [place] [address], [place] [address] 16 Nov, 2010 [facility] [address] [id number] [address] [place] [address], [place] [address] 10 Sep, 2010 [facility] [address] [id number] [address] [place] [address], [place] [address] Aug, [facility] [address] [id number] [address] [place] [address], [place] [address] Aug, [facility] [address] [id number] [address] [place] [address], [place] [address] Aug, [facility] [address] [id number] [address] [place] [address], [place] [address] Aug, [facility] [address] [id number] [address] [place] [address], [place] [address] Aug, [facility] [address] [id number] [address] [place] [address], [place] [address] 14 Aug, 2010 [facility] [address] [id number] [address] [place] [address], [place] [address] Aug, [facility] [address] [id number] [address] [place] [address], [place] [address] Aug, [facility] [address] [id number] [address] [place] [address], [place] [address] Aug, [facility] [address] [id number] [address] [place] [address], [place] [address] Aug, [facility] [address] [id number] [address] [place] [address], [place] [address] Aug, [facility] [address] [id number] [address] [place] [address], [place] [address] Aug, [facility] [address] [id number] [address] [place] [address], [place] [address] 30 Jul, 2010 [facility] [address] [id number] [address] [place] [address], [place] [address] 30 Jul, 2010 [facility] [address] [id number] [address] [place] [address], [place] [address] 30 Jul, 2010 [facility] [address] [id number] [address] [place] [address], [place] [address] 17 Jul, 2010 [facility] [address] [id number] [address] [place] [address], [place] [address] 08 Jul, 2010 [facility] [address] [id number] [address] [place] [address] Jul, [facility] [address] [id number] [address] [place] [address], [place] [address] 24 Jun, 2010 [facility] [address] [id number] [address] [place] [address], [place] [address] Jun, [facility] [address] [id number] [address] [place] [address], [place] [address] Jun, [facility] [address] [id number] [address] [place] [address], [place] [address] Jun, [facility] [address] [id number] [address] [place] [address], [place] [address] Apr, [facility] [address] [id number] [address] [place] [address], [place] [address] Mar, [facility] [address] [id number] [address] [place] [address], [place] [address] Feb, [facility] [address] [id number] [address] [place] [address], [place] [address] January, [facility] [address] [id number] [address] [place] [address] Dec, [facility] [address] [id number] [address] [place] [address], [place] [address] Nov, [facility] [address] [id number] [address] [place] [address] Aug, [facility] [address] [id number] [address] [place] [id number] Aug, [facility] [address] [id number] [address] [place] [address], [place] [address] Aug, [facility] [address] [id number] [address] [place] [id number] Jul, [facility] [address] [id number] [address] [place] [address], [place] [address] Jul, [facility] [address] [id number] [address] [place] [id number] Jul, [facility] [address] [id number] [address] [place] [address] Jun, [facility] [address] [id number] [address] [place] [address] Jun, [facility] [address] [id number] [address] [place] [id number] Jun, [facility] [address] [id number] [address] [place] [id number] Jun, [facility] [address] [id number] [address] [place] [id number] Jun, [facility] [address] [id number] [address] [place] [id number] Jun, [facility] [address] [id number] [address] [place] [id number] Apr, [facility] [address] [id number] [address] [place] [id number] Apr, [facility] [address] [id number] [address] [place] [id number] Feb, [facility] [address] [id number] [address] [place] [id number] January, [facility] [address] [id number] [address] [place] [id number] Dec, IMMUNIZATIONS No Known Immunizations SOCIAL HISTORY Never Assessed REASON FOR VISIT Memory assessment. PLAN OF CARE Activity Details Follow Up will review results at next appt. 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 Aug 06, 2018 PSYCHO TESTING BY BOOK SEWING MACHINE OPERATOR Aug 06, 2018 INSTRUCTIONS MEDICATIONS ADMINISTERED No Known Medications MEDICAL (GENERAL) HISTORY Type Description Date Medical History type II diabetes Medical History coronary artery disease stress test Medical History chronic obstructive pulmonary disease (C OPD) Medical History gastroesophageal reflux disease (GERD) Medical History acute renal failure Medical History erectile dysfunction Medical History hyperlipidemia Medical History obesity Medical History skin cancer-basal cell R religion (removed ) Medical History Arthritis Medical History [...] EGD ([facility]) 2009 Surgical History colonoscopy 2009 ([facility]), 2013 ([facility] ) Surgical History heart cath: CAD w/ [...] History inability to urinate 09/16/15 Hospitalization History [facility] inpatient mental health ea rly 1999' Hospitalization History hyperkalemia 10/2017 Hospitalization History fluid in lung
--- OUTSIDE RECORDS SUMMARY | 2020-03-01 18:28 | XMS REPORT ---
Author Michele Fuentes Organization [facility] Address [address] [place] [address] Care Team Providers Care Launchman Name Role Phone ROSELINE LUIS Unavailable PROBLEMS Type Condition ICD9-CM Code JYV38-NE Code Onset Dates Condition S tatus SNOMED Code Problem Lymphocytosis D72.820 Active 134273 09 Problem Chronic lymphocytic leukemia C91.10 A ctive 71537037 Problem Eye exam abnormal R93.8 Active 16 6581512 Problem Eustachian tube dysfunction, unspecified laterality H69.80 Active 15843887 Problem Dysuria R30.0 Active 43896701 Problem Cough R05 Active 56075685 Problem Hypokalemia E87.6 Active 10108464 Problem Bilateral primary osteoarthritis of knee M17.0 Active 474608073 Problem Benign prostatic hyperplasia with lower urinary tract symptoms, unspecified morphology N40.1 Active 48835 6007 Problem Retinal edema H35.81 Active 514992 6 Problem DM neuro manif type II E11.49 Active 36723286 Problem Anemia of chronic illness D63.8 Acti ve 362517521 Problem Falling R29.6 Active 881499492 Problem 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 Active 898680329 Problem Mild cognitive impairment G31.84 Acti ve 807862571 Problem Other chronic pain G89.29 Active 8 1074880 Problem Diabetes E11.9 Active 51972444 Problem Leukocytosis D72.829 Active 1368260 06 Problem Chronic pain G89.29 Active 4056883 1 Problem Pure hypercholesterolemia E78.00 Acti ve 034842187 Problem Bipolar disorder, in partial remission, most rec ent episode depressed F31.75 Active 05233025 Problem Other iron deficiency anemia D50.8 A ctive 78686821 Problem Primary osteoarthritis of right knee M17.11 Active 108980519497825 Problem Insomnia, unspecified type G47.00 Act sharon 890762838 Problem Anxiety F41.9 Active 32418610 Problem Reactive airway disease J45.909 Active 712949096036 Problem Bipolar I disorder, most recent episode (or curr ent) mixed, moderate F31.62 Active 46289993 Problem Diabetic polyneuropathy associated with type 2 d iabetes mellitus E11.42 Active 63289192 Problem Polyneuropathy associated with underlying disease G63 Active 999225874 Problem Morbid obesity E66.01 Active 64018 6002 Problem Essential hypertension I10 Active 81483601 ALLERGIES No Information ENCOUNTERS Encounter Location Date Diagnosis [facility] [address] [facility] [id number] [address] [place] [phone] Aug, [facility] [address] [place] [id number] [address] [place] [phone] Jul, [place] [address] [place] [id number] [place] [address] Jul, Bipolar I disorder, most rec ent episode (or current) mixed, moderate F31.62 and Mild cognitive impairment G31.84 [place] [address] [place] [id number] [address] [place] [phone] Jul, Bipolar I disorder, most rec ent episode (or current) mixed, moderate F31.62 and MCI (mild cognitive impairment) G31.84 [place] [address] [place] [id number] [address] [place] [phone] Jul, [facility] [address] [place] [id number] [address] [place] [phone] Jul, [facility] [address] [place] [id number] [address] [place] [address] Jul, Bipolar I disorder, most rec ent episode (or current) mixed, moderate F31.62 [facility] [address] [place] [id number] [address] [place] [phone] Jul, Chronic pain G89.29 [facility] [address] [place] [id number] [address] [place] [phone] Jun, Bipolar I disorder, most rec ent episode (or current) mixed, moderate F31.62 [facility] [address] [place] [id number] [address] [place] [phone] Jun, Pre-procedure lab exam Z01.8 12 [place] [address] [facility] [id number] [address] [place] [phone] Jun, [facility] [address] [id number] [place] [id number] Jun, [place] [address] [facility] [id number] [address] [place] [phone] Jun, [facility] [address] [facility] [id number] [address] [place] [phone] Jun, Forgetfulness R68.89 ; Pre-s yncope R55 ; Localized edema R60.0 ; Other iron deficiency anemia D50.8 and BMI 50.0-59.9, adult Z68.43 [place] [address] [place] [id number] [address] [place] [phone] Jun, Chronic pain G89.29 [facility] [address] [place] [id number] [address] [place] [phone] Jun, Chronic pain G89.29 [place] [address] [place] [id number] [address] [place] [phone] Jun, Bipolar I disorder, most rec ent episode (or current) mixed, moderate F31.62 [place] [address] [place] [id number] [address] [place] [phone] May, Chronic pain G89.29 [facility] [address] [facility] [id number] [address] [place] [phone] Apr, [place] [address] [place] [id number] [address] [place] [phone] Apr, Chronic pain G89.29 [facility] [address] [facility] [id number] [address] [place] [phone] Apr, Primary osteoarthritis of ri ght knee M17.11 [place] [address] [facility] [id number] [address] [place] [phone] Mar, [place] [address] [place] [id number] [address] [place] [phone] Mar, BMI 50.0-59.9, adult Z68.43 and Bipolar disorder, in partial remission, most recent episode depressed F31.75 [place] [address] [place] [id number] [address] [place] [address] Mar, Diabetes E11.9 ; Pure hyperc holesterolemia E78.00 ; Essential hypertension I10 ; Nausea with vomiting, unspecified R11.2 and Headache, unspecified headache type R51 [place] [address] [place] [id number] [place] [address] Mar, Bipolar I disorder, most rec ent episode (or current) mixed, moderate F31.62 [place] [address] [place] [id number] [address] [place] [address] Mar, Bipolar I disorder, most rec ent episode (or current) mixed, moderate F31.62 [place] [address] [place] [id number] [address] [place] [address] Mar, Chronic pain G89.29 [place] [address] [place] [id number] [address] [place] [address] Mar, Bipolar I disorder, most rec ent episode (or current) mixed, moderate F31.62 [place] [address] [place] [id number] [address] [place] [address] 18 Feb, 2018 Bipolar I disorder, most rec ent episode (or current) mixed, moderate F31.62 [place] [address] [place] [id number] [address] [place] [phone] 14 Feb, 2018 Chronic pain G89.29 [place] [address] [place] [id number] [address] [place] [phone] 06 Feb, 2018 Decubitus ulcer of right josselin t, stage 3 L89.893 and BMI 50.0-59.9, adult Z68.43 [place] [address] [place] [id number] [address] [place] [phone] Feb, Bipolar I disorder, most rec ent episode (or current) mixed, moderate F31.62 [facility] [address] [facility] [id number] [address] [place] [phone] Feb, [facility] [address] [facility] [id number] [address] [place] [phone] January, [place] [address] [facility] [id number] [address] [place] [phone] January, Chronic pain G89.29 [place] [address] [facility] [id number] [address] [place] [address] January, Bipolar I disorder, most rec ent episode (or current) mixed, moderate F31.62 [place] [address] [place] [id number] [address] [place] [phone] January, Bipolar I disorder, most rec ent episode (or current) mixed, moderate F31.62 [place] [address] [facility] [id number] [address] [place] [address] Dec, Bipolar I disorder, most rec ent episode (or current) mixed, moderate F31.62 and BMI 50.0-59.9, adult Z68.43 [place] [address] [place] [id number] [address] [place] [phone] Dec, Bipolar I disorder, most rec ent episode (or current) mixed, moderate F31.62 [place] [address] [place] [id number] [address] [place] [address] Dec, Chronic pain G89.29 [facility] [address] [place] [id number] [address] [place] [phone] 18 Dec, 2017 DM neuro manif type II E11.4 9 ; Right flank pain R10.9 ; care home current use of opiate analgesic Z79.891 ; Encounter for medication monitoring Z51.81 and BMI 50.0-59.9, adult Z68.43 [place] [address] [place] [id number] [address] [place] [phone] Dec, Bipolar I disorder, most rec ent episode (or current) mixed, moderate F31.62 [facility] [address] [place] [id number] [address] [place] [address] Nov, Bipolar I disorder, most rec ent episode (or current) mixed, moderate F31.62 [facility] [address] [place] [id number] [address] [place] [address] Nov, Chronic pain G89.29 [facility] [address] [place] [id number] [address] [place] [phone] Nov, Bipolar I disorder, most rec ent episode (or current) mixed, moderate F31.62 [facility] [address] [place] [id number] [address] [place] [phone] Nov, Hypokalemia E87.6 [place] [address] [place] [id number] [place] [phone] Nov, Bipolar I disorder, most rec ent episode (or current) mixed, moderate F31.62 [facility] [address] [place] [id number] [address] [place] [phone] Oct, Chronic pain G89.29 [facility] [address] [place] [id number] [address] [place] [address] Oct, BMI 50.0-59.9, adult Z68.43 and Bipolar I disorder, most recent episode (or current) mixed, moderate F31.62 [facility] [address] [place] [id number] [address] [place] [phone] Oct, Bipolar I disorder, most rec ent episode (or current) mixed, moderate F31.62 [facility] [address] [place] [id number] [address] [place] [phone] Oct, [facility] [address] [place] [id number] [address] [place] [phone] Oct, Hypokalemia E87.6 [facility] [address] [facility] [id number] [address] [place] [phone] Oct, DM neuro manif type II E11.4 9 [facility] [address] [facility] [id number] [address] [place] [phone] Oct, Bipolar I disorder, most rec ent episode (or current) mixed, moderate F31.62 [facility] [address] [place] [id number] [address] [place] [address] Oct, Bipolar I disorder, most rec ent episode (or current) mixed, moderate F31.62 [place] [address] [place] [id number] [place] [address] 14 Oct, 2017 Hyperkalemia E87.5 ; Falling R29.6 ; BMI 50.0-59.9, adult Z68.43 and Acute left ankle pain M25.572 [place] [address] [place] [id number] [place] [phone] Oct, DM neuro manif type II E11.4 9 [facility] [address] [place] [id number] [address] [place] [phone] Oct, [place] [address] [place] [id number] [place] [address] Sep, Chronic pain G89.29 [place] [address] [place] [id number] [address] [place] [phone] Sep, [facility] [address] [place] [id number] [place] [address] Sep, Bilateral primary osteoarthr itis of knee M17.0 [place] [address] [place] [id number] [place] [phone] Sep, Generalized edema R60.1 [place] [address] [place] [id number] [place] [phone] Sep, Bipolar I disorder, most rec ent episode (or current) mixed, moderate F31.62 [place] [address] [facility] [id number] [address] [place] [address] 15 Sep, 2017 Hypoxia R09.02 ; Other hyper volemia E87.79 ; Diabetes E11.9 ; Retinal edema H35.81 ; Hypokalemia E87.6 ; 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 ; Anemia of chronic illness D63.8 and BMI 50.0- 59.9, adult Z68.43 [place] [address] [place] [id number] [place] [phone] Sep, [place] [address] [place] [id number] [place] [phone] Sep, Bipolar I disorder, most rec ent episode (or current) mixed, moderate F31.62 [place] [address] [place] [id number] [place] [phone] Aug, Chronic pain G89.29 [place] [address] [place] [id number] [place] [phone] Aug, Generalized edema R60.1 [place] [address] [place] [id number] [place] [phone] 18 Aug, 2017 [place] [address] [place] [id number] [place] [address] Aug, [place] [address] [place] [id number] [place] [phone] 14 Aug, 2017 Bipolar I disorder, most rec ent episode (or current) mixed, moderate F31.62 [place] [address] [facility] [id number] [address] [place] [address] 07 Aug, 2017 Bipolar I disorder, most rec ent episode (or current) mixed, moderate F31.62 [place] [address] [place] [id number] [place] [phone] 04 Aug, 2017 Chronic pain G89.29 [place] [address] [place] [id number] [place] [phone] Jul, Bipolar I disorder, most rec ent episode (or current) mixed, moderate F31.62 [facility] [address] [facility] [id number] [address] [place] [address] Jul, Bipolar I disorder, most rec ent episode (or current) mixed, moderate F31.62 and BMI 60.0-69.9, adult Z68.44 [facility] [address] [facility] [id number] [address] [place] [phone] Jul, Bipolar I disorder, most rec ent episode (or current) mixed, moderate F31.62 [facility] [address] [facility] [id number] [address] [place] [phone] Jul, Chronic pain G89.29 [facility] [address] [facility] [id number] [address] [place] [address] Jul, Bipolar I disorder, most rec ent episode (or current) mixed, moderate F31.62 [facility] [address] [facility] [id number] [address] [place] [phone] Jun, Polyneuropathy associated wi th underlying disease G63 and Diabetes E11.9 [facility] [address] [facility] [id number] [address] [place] [address] Jun, Bipolar I disorder, most rec ent episode (or current) mixed, moderate F31.62 [facility] [address] [facility] [id number] [address] [place] [phone] Jun, Chronic pain G89.29 [facility] [address] [facility] [id number] [address] [place] [phone] May, Bipolar I disorder, most rec ent episode (or current) mixed, moderate F31.62 [facility] [address] [facility] [id number] [address] [place] [phone] May, Bipolar I disorder, most rec ent episode (or current) mixed, moderate F31.62 [facility] [address] [facility] [id number] [address] [place] [phone] May, Diabetic polyneuropathy asso ciated with type 2 diabetes mellitus E11.42 [facility] [address] [id number] [address] [place] [phone] 18 May, 2017 Bipolar I disorder, most rec ent episode (or current) mixed, moderate F31.62 [facility] [address] [id number] [address] [place] [address] 13 May, 2017 Bipolar I disorder, most rec ent episode (or current) mixed, moderate F31.62 [facility] [address] [id number] [address] [place] [phone] 12 May, 2017 Chronic pain G89.29 [facility] [address] [id number] [address] [place] [phone] 30 Apr, 2017 Bipolar I disorder, most rec ent episode (or current) mixed, moderate F31.62 [facility] [address] [id number] [address] [place] [phone] Apr, [facility] [address] [facility] [id number] [address] [place] [phone] Apr, Chronic pain G89.29 and DM n euro manif type II E11.49 [facility] [address] [id number] [address] [place] [phone] 21 Apr, 2017 [facility] [address] [id number] [address] [place] [phone] 16 Apr, 2017 Bipolar I disorder, most rec ent episode (or current) mixed, moderate F31.62 [facility] [address] [facility] [id number] [address] [place] [address] 14 Apr, 2017 Chronic pain G89.29 [facility] [address] [id number] [address] [place] [phone] 03 Apr, 2017 Iliotibial band syndrome, le ft M76.32 [facility] [address] [id number] [address] [place] [phone] Apr, Bipolar I disorder, most rec ent episode (or current) mixed, moderate F31.62 [facility] [address] [facility] [id number] [address] [place] [phone] Mar, Bipolar I disorder, most rec ent episode (or current) mixed, moderate F31.62 [facility] [address] [facility] [id number] [address] [place] [phone] Mar, Bipolar I disorder, most rec ent episode (or current) mixed, moderate F31.62 [facility] [address] [facility] [id number] [address] [place] [phone] Mar, [facility] [address] [facility] [id number] [address] [place] [phone] Mar, Bipolar I disorder, most rec ent episode (or current) mixed, moderate F31.62 [place] [address] [facility] [id number] [address] [place] [phone] Mar, Chronic pain G89.29 [place] [address] [facility] [id number] [address] [place] [phone] Mar, Bipolar I disorder, most rec ent episode (or current) mixed, moderate F31.62 [place] [address] [facility] [id number] [address] [place] [phone] Mar, Bipolar I disorder, most rec ent episode (or current) mixed, moderate F31.62 [place] [address] [place] [id number] [address] [place] [phone] Mar, Acute pain of left knee M25. 562 ; Left hip pain M25.552 ; Generalized edema R60.1 and Tongue swelling R22.0 [facility] [address] [facility] [id number] [address] [place] [phone] Mar, [facility] [address] [facility] [id number] [address] [place] [address] Feb, Chronic pain G89.29 [facility] [address] [place] [id number] [address] [place] [address] Feb, Diabetes E11.9 [place] [address] [facility] [id number] [address] [place] [phone] January, Chronic pain G89.29 [facility] [address] [facility] [id number] [address] [place] [phone] January, [facility] [address] [facility] [id number] [address] [place] [phone] January, Bipolar I disorder, most rec ent episode (or current) mixed, moderate F31.62 [facility] [address] [facility] [id number] [address] [place] [phone] Dec, Bipolar I disorder, most rec ent episode (or current) mixed, moderate F31.62 [facility] [address] [facility] [id number] [address] [place] [address] Dec, Chronic pain G89.29 [facility] [address] [facility] [id number] [address] [place] [phone] Dec, Bipolar I disorder, most rec ent episode (or current) mixed, moderate F31.62 [facility] [address] [facility] [id number] [address] [place] [phone] Dec, Diabetes E11.9 ; Essential h ypertension I10 ; Chronic pain G89.29 and Morbid obesity E66.01 [facility] [address] [facility] [id number] [address] [place] [phone] Dec, [facility] [address] [facility] [id number] [address] [place] [phone] Dec, Bipolar I disorder, most rec ent episode (or current) mixed, moderate F31.62 [facility] [address] [facility] [id number] [address] [place] [phone] Dec, Bipolar I disorder, most rec ent episode (or current) mixed, moderate F31.62 [facility] [address] [facility] [id number] [address] [place] [address] Nov, Chronic pain G89.29 [facility] [address] [facility] [id number] [address] [place] [phone] Nov, Bipolar I disorder, most rec ent episode (or current) mixed, moderate F31.62 [facility] [address] [id number] [address] [place] [phone] Nov, [facility] [address] [id number] [address] [place] [phone] Nov, Bipolar I disorder, most rec ent episode (or current) mixed, moderate F31.62 [facility] [address] [id number] [address] [place] [phone] Nov, Bipolar I disorder, most rec ent episode (or current) mixed, moderate F31.62 [facility] [address] [id number] [address] [place] [phone] Nov, [facility] [address] [facility] [id number] [address] [place] [phone] Nov, [facility] [address] [id number] [address] [place] [phone] Nov, [facility] [address] [id number] [address] [place] [phone] Oct, Chronic pain G89.29 [facility] [address] [facility] [id number] [address] [place] [phone] Oct, Bipolar I disorder, most rec ent episode (or current) mixed, moderate F31.62 [facility] [address] [id number] [address] [place] [id number] Oct, [facility] [address] [id number] [address] [place] [phone] Oct, Chronic pain G89.29 ; Diabet es E11.9 ; Anxiety F41.9 and 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 [facility] [address] [id number] [address] [place] [phone] Oct, [facility] [address] [id number] [address] [place] [id number] Oct, Diabetes E11.9 [facility] [address] [id number] [address] [place] [id number] Oct, Bipolar I disorder, most rec ent episode (or current) mixed, moderate F31.62 [facility] [address] [facility] [id number] [address] [place] [address] Sep, Chronic pain G89.29 [facility] [address] [id number] [address] [place] [id number] Sep, Chronic pain G89.29 [facility] [address] [facility] [id number] [address] [place] [address] Aug, Chronic pain G89.29 [facility] [address] [facility] [id number] [address] [place] [phone] Jul, [facility] [address] [facility] [id number] [address] [place] [id number] Jul, Diabetes E11.9 [facility] [address] [facility] [id number] [address] [place] [phone] Jul, Chronic pain G89.29 [facility] [address] [facility] [id number] [address] [place] [phone] Jul, Bipolar I disorder, most rec ent episode (or current) mixed, moderate F31.62 [facility] [address] [facility] [id number] [address] [place] [phone] Jun, Bipolar I disorder, most rec ent episode (or current) mixed, moderate F31.62 [facility] [address] [facility] [id number] [address] [place] [phone] Jun, [facility] [address] [facility] [id number] [address] [place] [phone] Jun, Bipolar I disorder, most rec ent episode (or current) mixed, moderate F31.62 [facility] [address] [facility] [id number] [address] [place] [phone] 30 May, 2016 Insomnia, unspecified type G 47.00 [place] [address] [facility] [id number] [address] [place] [phone] May, Bipolar I disorder, most rec ent episode (or current) mixed, moderate F31.62 [facility] [address] [place] [id number] [address] [place] [phone] 14 May, 2016 [place] [address] [place] [id number] [address] [place] [id number] May, Bipolar I disorder, most rec ent episode (or current) mixed, moderate F31.62 [place] [address] [place] [id number] [address] [place] [address] May, Diabetes E11.9 and Essential hypertension I10 [place] [address] [place] [id number] [address] [place] [phone] Apr, Chronic pain G89.29 [place] [address] [place] [id number] [place] [phone] Apr, Bipolar I disorder, most rec ent episode (or current) mixed, moderate F31.62 [place] [address] [place] [id number] [address] [place] [phone] Apr, [place] [address] [place] [id number] [address] [place] [phone] Apr, [place] [address] [place] [id number] [place] [address] Mar, Chronic pain G89.29 ; Headac he, unspecified headache type R51 ; Neuropathy G62.9 ; Pain of right hip joint M25.551 and Essential hypertension I10 [place] [address] [place] [id number] [address] [place] [id number] Mar, Chronic pain G89.29 [place] [address] [place] [id number] [address] [place] [phone] Mar, Bipolar I disorder, most rec ent episode (or current) mixed, moderate F31.62 [facility] [address] [id number] [address] [place] [phone] Feb, Bipolar I disorder, most rec ent episode (or current) mixed, moderate F31.62 and Insomnia, unspecified type G47.00 [facility] [address] [id number] [address] [place] [phone] Feb, Chronic pain G89.29 [facility] [address] [id number] [address] [place] [phone] Feb, Bipolar I disorder, most rec ent episode (or current) mixed, moderate F31.62 [facility] [address] [id number] [address] [place] [phone] January, Bipolar I disorder, most rec ent episode (or current) mixed, moderate F31.62 [facility] [address] [id number] [address] [place] [id number] January, Chronic pain G89.29 [facility] [address] [id number] [address] [place] [phone] January, Chronic pain G89.29 and Esse ntial hypertension I10 [facility] [address] [id number] [address] [place] [phone] January, Bipolar I disorder, most rec ent episode (or current) mixed, moderate F31.62 [facility] [address] [id number] [address] [place] [phone] Dec, [facility] [address] [id number] [address] [place] [phone] Dec, [facility] [address] [facility] [id number] [address] [place] [phone] Dec, [facility] [address] [id number] [address] [place] [phone] Dec, [facility] [address] [facility] [id number] [address] [place] [address] Nov, Reactive airway disease J45. 909 [facility] [address] [facility] [id number] [address] [place] [phone] Nov, [facility] [address] [facility] [id number] [address] [place] [phone] Nov, [facility] [address] [facility] [id number] [address] [place] [phone] Nov, [facility] [address] [facility] [id number] [address] [place] [phone] Nov, [facility] [address] [facility] [id number] [address] [place] [phone] Nov, Onychomycosis B35.1 ; Hammer toe M20.40 ; Comanche or callus L84 and DM neuro manif type II E11.49 [facility] [address] [facility] [id number] [address] [place] [address] Nov, Chronic pain G89.29 ; Leukoc ytosis D72.829 and Diabetes E11.9 [facility] [address] [facility] [id number] [address] [place] [phone] Nov, [facility] [address] [facility] [id number] [address] [place] [phone] Oct, Bronchitis J40 [facility] [address] [facility] [id number] [address] [place] [phone] Oct, [facility] [address] [facility] [id number] [address] [place] [phone] Oct, [facility] [address] [facility] [id number] [address] [place] [phone] Oct, Mastoiditis, unspecified lat erality H70.90 and Type 2 diabetes mellitus with complication E11.8 [facility] [address] [facility] [id number] [address] [place] [phone] Sep, [facility] [address] [facility] [id number] [address] [place] [phone] Sep, Dysuria R30.0 ; Cough R05 ; Benign prostatic hyperplasia with lower urinary tract symptoms, unspecified morphology N40.1 ; Hypokalemia E87.6 and Eustachian tube dysfunction, unspecified laterality H69.80 [facility] [address] [facility] [id number] [address] [place] [phone] Sep, Moderate mixed bipolar I dis order F31.62 [facility] [address] [facility] [id number] [address] [place] [phone] Sep, Hypokalemia E87.6 [facility] [address] [facility] [id number] [address] [place] [phone] Sep, [facility] [address] [place] [id number] [address] [place] [id number] Sep, Upper respiratory tract infe ction, unspecified type J06.9 [facility] [address] [facility] [id number] [address] [place] [phone] Aug, [facility] [address] [facility] [id number] [address] [place] [phone] Aug, Dysuria R30.0 [facility] [address] [place] [id number] [address] [place] [phone] Aug, [facility] [address] [facility] [id number] [address] [place] [phone] Jul, [facility] [address] [facility] [id number] [address] [place] [phone] Jul, [facility] [address] [facility] [id number] [address] [place] [phone] Jul, [facility] [address] [place] [id number] [address] [place] [phone] Jul, [facility] [address] [place] [id number] [address] [place] [phone] Jun, [facility] [address] [place] [id number] [address] [place] [phone] Jun, [facility] [address] [facility] [id number] [address] [place] [phone] Jun, [facility] [address] [facility] [id number] [address] [place] [phone] May, [facility] [address] [place] [id number] [address] [place] [phone] May, Bipolar I disorder, most rec ent episode (or current) mixed, moderate 296.62 [facility] [address] [place] [id number] [address] [place] [phone] May, [facility] [address] [place] [id number] [address] [place] [phone] May, Bipolar I disorder, most rec ent episode (or current) mixed, moderate 296.62 and Major depressive disorder, recurrent episode, severe, specified as with psychotic behavior 296.34 [facility] [address] [place] [id number] [address] [place] [phone] May, Bipolar I disorder, most rec ent episode (or current) mixed, moderate 296.62 [facility] [address] [place] [id number] [address] [place] [phone] May, [facility] [address] [place] [id number] [address] [place] [phone] Apr, [facility] [address] [place] [id number] [address] [place] [phone] Apr, [facility] [address] [place] [id number] [address] [place] [phone] Apr, Unspecified disorder of kidn ey and ureter 593.9 and Diabetes mellitus type 2, uncontrolled 250.02 [facility] [address] [place] [id number] [address] [place] [phone] Apr, [facility] [address] [place] [id number] [address] [place] [phone] Apr, [facility] [address] [facility] [id number] [address] [place] [phone] Apr, [facility] [address] [place] [id number] [place] [phone] Apr, [facility] [address] [facility] [id number] [address] [place] [phone] Apr, Diabetes mellitus type II, u ncontrolled 250.02 [facility] [address] [id number] Apr, [facility] [address] [place] [id number] [place] [phone] Mar, [facility] [address] [place] [id number] [place] [phone] Mar, [facility] [address] [address] Mar, [facility] [address] [place] [id number] [address] [place] [phone] Mar, Major depressive disorder, r ecurrent episode, severe, specified as with psychotic behavior 296.34 and Bipolar I disorder, most recent episode (or current) mixed, moderate 296.62 [facility] [address] [place] [id number] [address] [place] [address] Mar, Diabetes 250.00 ; Anuria 788 .5 ; Nausea and vomiting 787.01 and Diarrhea 787.91 [facility] [address] [place] [id number] [address] [place] [address] Mar, Diabetes 250.00 [facility] [address] [place] [id number] [address] [place] [phone] Mar, [facility] [address] [place] [id number] [address] [place] [phone] Mar, Diabetes 250.00 [facility] [address] [place] [id number] [address] [place] [phone] Mar, [place] [address] [address] Mar, [facility] [address] [address] Mar, [facility] [address] [address] Mar, [facility] [address] [address] Mar, Bipolar I disorder, most rec ent episode (or current) mixed, moderate 296.62 and Major depressive disorder, recurrent episode, severe, specified as with psychotic behavior 296.[address] [address] Mar, Magnesium deficiency 275.2 ; Hypokalemia 276.8 ; Nausea & vomiting 787.01 and Diabetes mellitus type 2, uncontrolled [address] [address] Feb, [place] [address] [address] Feb, Bipolar I disorder, most rec ent episode (or current) mixed, moderate 296.[address] [address] Feb, Nausea and vomiting 787.01 ; Left elbow pain 719.42 ; Anuria 788.5 and Diabetes 250.00 [facility] [address] [phone] Feb, [place] [address] [address] Feb, Hypopotassemia 276.8 and Hyp okalemia 276.[address] [address] Feb, Hypopotassemia 276.8 and Hyp okalemia 276.8 [place] [address] [place] [address] Feb, Seborrheic keratoses 702.19 [facility] [address] [id number] [address] [place] [address] Feb, Hypopotassemia 276.8 and Low magnesium levels 275.2 [facility] [address] [id number] [address] [place] [phone] January, [facility] [address] [id number] [address] [place] [phone] January, [facility] [address] [id number] [address] [place] [phone] January, [facility] [address] [facility] [id number] [address] [place] [phone] January, Scalp lesion 709.9 [facility] [address] [place] [id number] [address] [place] [phone] January, [facility] [address] [facility] [id number] [address] [place] [phone] Dec, Tear of medial cartilage or meniscus of knee, current 836.0 and Chondromalacia 733.92 [facility] [address] [facility] [id number] [address] [place] [phone] Dec, [facility] [address] [id number] [address] [place] [phone] Dec, [facility] [address] [facility] [id number] [address] [place] [phone] Dec, Squamous cell carcinoma, 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 [facility] [address] [id number] [address] [place] [phone] 14 Dec, 2014 [facility] [address] [facility] [id number] [address] [place] [phone] Dec, [facility] [address] [facility] [id number] [address] [place] [phone] Nov, [facility] [address] [id number] [address] [place] [address], [place] [address] Nov, [facility] [address] [id number] [address] [place] [address], [place] [address] Nov, [facility] [address] [id number] [address] [place] [address], [place] [address] Nov, [facility] [address] [id number] [address] [place] [address], [place] [address] Nov, [facility] [address] [id number] [address] [place] [address], [place] [address] Nov, [facility] [address] [id number] [address] [place] [address], [place] [address] Nov, [facility] [address] [id number] [address] [place] [address], [place] [address] Nov, [facility] [address] [id number] [address] [place] [address], [place] [address] Nov, [facility] [address] [id number] [address] [place] [address], [place] [address] Nov, [facility] [address] [id number] [address] [place] [address], [place] [address] Nov, [facility] [address] [id number] [address] [place] [address], [place] [address] Nov, [facility] [address] [id number] [address] [place] [address], [place] [address] Oct, 2014 [facility] [address] [id number] [address] [place] [address], [place] [address] Oct, [facility] [address] [id number] [address] [place] [address], [place] [address] Oct, [facility] [address] [id number] [address] [place] [address], [place] [address] Oct, [facility] [address] [id number] [address] [place] [address], [place] [address] Oct, [facility] [address] [id number] [address] [place] [address], [place] [address] Oct, [facility] [address] [id number] [address] [place] [address], [place] [address] Oct, [facility] [address] [id number] [address] [place] [address], [place] [address] Oct, [facility] [address] [id number] [address] [place] [address], [place] [address] Oct, [facility] [address] [id number] [address] [place] [address], [place] [address] Sep, [facility] [address] [id number] [address] [place] [address], [place] [address] Sep, [facility] [address] [id number] [address] [place] [address], [place] [address] Sep, [facility] [address] [id number] [address] [place] [address], [place] [address] Sep, [facility] [address] [id number] [address] [place] [address], [place] [address] Sep, [facility] [address] [id number] [address] [place] [address], [place] [address] Sep, [facility] [address] [id number] [address] [place] [address], [place] [address] Sep, [facility] [address] [id number] [address] [place] [address] Sep, [facility] [address] [id number] [address] [place] [address], [place] [address] Sep, [facility] [address] [id number] [address] [place] [address], [place] [address] Sep, [facility] [address] [id number] [address] [place] [address], [place] [address] Sep, [facility] [address] [id number] [address] [place] [address], [place] [address] Sep, [facility] [address] [id number] [address] [place] [address], [place] [address] Sep, [facility] [address] [id number] [address] [place] [address], [place] [address] Sep, [facility] [address] [id number] [address] [place] [address], [place] [address] Sep, [facility] [address] [id number] [address] [place] [address], [place] [address] Sep, [facility] [address] [id number] [address] [place] [address], [place] [address] Aug, [facility] [address] [id number] [address] [place] [address], [place] [address] Aug, [facility] [address] [id number] [address] [place] [address], [place] [address] Aug, [facility] [address] [id number] [address] [place] [address], [place] [address] Aug, [facility] [address] [id number] [address] [place] [address], [place] [address] Aug, [facility] [address] [id number] [address] [place] [address], [place] [address] Aug, [facility] [address] [id number] [address] [place] [address], [place] [address] Aug, [facility] [address] [id number] [address] [place] [address], [place] [address] Aug, [facility] [address] [id number] [address] [place] [address], [place] [address] Aug, [facility] [address] [id number] [address] [place] [address], [place] [address] Aug, [facility] [address] [id number] [address] [place] [address], [place] [address] Aug, [facility] [place] [place], [place] [id number] Aug, [facility] [address] [id number] [address] [place] [address] Aug, [facility] [address] [id number] [facility] [place] [address] Aug, [facility] [address] [id number] [address] [place] [address], [place] [address] Aug, [facility] [address] [id number] [address] [place] [address], [place] [address] Aug, [facility] [address] [id number] [address] [place] [address], [place] [address] Aug, [facility] [address] [id number] [address] [place] [address], [place] [address] Aug, [facility] [address] [id number] [address] [place] [address], [place] [address] Aug, [facility] [address] [id number] [address] [place] [address], [place] [address] Aug, [facility] [address] [id number] [address] [place] [address], [place] [address] Aug, [facility] [address] [id number] [address] [place] [address], [place] [address] Aug, [facility] [address] [id number] [address] [place] [address], [place] [address] Aug, [facility] [address] [id number] [address] [place] [address], [place] [address] Aug, [facility] [address] [id number] [address] [place] [address], [place] [address] Aug, [facility] [address] [id number] [address] [place] [address], [place] [address] Aug, [facility] [address] [id number] [address] [place] [address] Aug, [facility] [address] [id number] [address] [place] [address], [place] [address] Aug, [facility] [address] [id number] [address] [place] [address], [place] [address] Aug, [facility] [address] [id number] [address] [place] [address], [place] [address] Aug, [facility] [address] [id number] [address] [place] [address], [place] [address] Jul, [facility] [address] [id number] [address] [place] [address], [place] [address] Jul, [facility] [address] [id number] [address] [place] [address], [place] [address] Jul, [facility] [address] [id number] [address] [place] [address], [place] [address] Jul, [facility] [address] [id number] [address] [place] [address], [place] [address] Jul, [facility] [address] [id number] [address] [place] [address], [place] [address] Jul, [facility] [address] [id number] [address] [place] [address], [place] [address] Jul, [facility] [address] [id number] [address] [place] [address], [place] [address] Jul, [facility] [address] [id number] [address] [place] [address], [place] [address] Jul, [facility] [address] [id number] [address] [place] [address], [place] [address] Jul, [facility] [address] [id number] [address] [place] [address], [place] [address] Jun, [facility] [address] [id number] [address] [place] [address], [place] [address] Jun, [facility] [address] [id number] [address] [place] [address], [place] [address] 16 Jun, 2014 [facility] [address] [id number] [address] [place] [address], [place] [address] 16 Jun, 2014 [facility] [address] [id number] [address] [place] [address], [place] [address] 15 Jun, 2014 [facility] [address] [id number] [address] [place] [address], [place] [address] Jun, [facility] [address] [id number] [address] [place] [address], [place] [address] Jun, [facility] [address] [id number] [address] [place] [address], [place] [address] Jun, [facility] [address] [id number] [address] [place] [address], [place] [address] Jun, [facility] [address] [id number] [address] [place] [address], [place] [address] Jun, [facility] [address] [id number] [address] [place] [address], [place] [address] 29 May, 2013 [facility] [address] [id number] [address] [place] [address], [place] [address] 29 May, 2013 [facility] [address] [id number] [address] [place] [address], [place] [address] 26 May, 2013 [facility] [address] [id number] [address] [place] [address], [place] [address] 26 Sep, 2013 [facility] [address] [id number] [address] [place] [address], [place] [address] 17 May, 2013 [facility] [address] [id number] [address] [place] [address], [place] [address] 17 May, 2013 [facility] [address] [id number] [address] [place] [address], [place] [address] 15 May, 2013 [facility] [address] [id number] [address] [place] [address], [place] [address] 15 May, 2013 [facility] [address] [id number] [address] [place] [address], [place] [address] 15 May, 2013 [facility] [address] [id number] [address] [place] [address], [place] [address] 15 May, 2013 [facility] [address] [id number] [address] [place] [address], [place] [address] 10 May, 2013 [facility] [address] [id number] [address] [place] [address], [place] [address] 10 May, 2013 [facility] [address] [id number] [address] [place] [address], [place] [address] 09 May, 2013 [facility] [address] [id number] [address] [place] [address], [place] [address] May, [facility] [address] [id number] [address] [place] [address], [place] [address] May, 2013 [facility] [address] [id number] [address] [place] [address], [place] [address] May, [facility] [address] [id number] [address] [place] [address], [place] [address] Apr, [facility] [address] [id number] [address] [place] [address], [place] [address] Apr, [facility] [address] [id number] [address] [place] [address], [place] [address] Apr, [facility] [address] [id number] [address] [place] [address], [place] [address] Apr, [facility] [address] [id number] [address] [place] [address], [place] [address] Apr, [facility] [address] [id number] [address] [place] [address], [place] [address] Apr, [facility] [address] [id number] [address] [place] [address], [place] [address] Apr, [facility] [address] [id number] [facility] [place] [address] Apr, [facility] [address] [id number] [facility] [place] [address] Apr, [facility] [address] [id number] [facility] [place] [address] Apr, [facility] [address] [id number] [facility] [place] [address] Apr, [facility] [address] [id number] [address] [place] [address], [place] [address] Apr, [facility] [address] [id number] [address] [place] [address], [place] [address] Apr, [facility] [address] [id number] [address] [place] [address], [place] [address] Apr, [facility] [address] [id number] [address] [place] [address], [place] [address] Apr, [facility] [address] [id number] [address] [place] [address], [place] [address] Mar, [facility] [address] [id number] [address] [place] [address], [place] [address] Mar, [facility] [address] [id number] [address] [place] [address], [place] [address] Mar, [facility] [address] [id number] [address] [place] [address], [place] [address] Mar, [facility] [address] [id number] [address] [place] [address], [place] [address] Mar, [facility] [address] [id number] [address] [place] [address], [place] [address] Mar, [facility] [address] [id number] [address] [place] [address], [place] [address] Mar, [facility] [address] [id number] [address] [place] [address], [place] [address] Mar, [facility] [address] [id number] [address] [place] [address], [place] [address] Mar, 2013 [facility] [address] [id number] [address] [place] [address], [place] [address] Mar, 2013 [facility] [address] [id number] [address] [place] [address], [place] [address] Mar, 2013 [facility] [address] [id number] [address] [place] [address], [place] [address] Mar, 2013 [facility] [address] [id number] [address] [place] [address], [place] [address] Mar, 2013 [facility] [address] [id number] [address] [place] [address], [place] [address] Mar, 2013 [facility] [address] [id number] [address] [place] [address], [place] [address] Mar, 2013 [facility] [address] [id number] [address] [place] [address], [place] [address] Mar, 2013 [facility] [address] [id number] [address] [place] [address], [place] [address] Mar, 2013 [facility] [address] [id number] [address] [place] [address], [place] [address] Mar, [facility] [address] [id number] [address] [place] [address], [place] [address] Feb, [facility] [address] [id number] [address] [place] [address], [place] [address] Feb, [facility] [address] [id number] [address] [place] [address], [place] [address] Feb, [facility] [address] [id number] [address] [place] [address], [place] [address] Feb, [facility] [address] [id number] [address] [place] [address], [place] [address] Feb, [facility] [address] [id number] [address] [place] [address], [place] [address] Feb, [facility] [address] [id number] [facility] [place] [address] Feb, [facility] [address] [id number] [facility] [place] [address] Feb, [facility] [address] [id number] [facility] [place] [address] Feb, [facility] [address] [id number] [facility] [place] [address] Feb, [facility] [address] [id number] [address] [place] [address], [place] [address] Feb, [facility] [address] [id number] [address] [place] [address], [place] [address] Feb, [facility] [address] [id number] [address] [place] [address], [place] [address] Feb, [facility] [address] [id number] [address] [place] [address], [place] [address] Feb, [facility] [address] [id number] [address] [place] [address], [place] [address] January, [facility] [address] [id number] [address] [place] [address], [place] [address] January, [facility] [address] [id number] [address] [place] [address], [place] [address] January, [facility] [address] [id number] [address] [place] [address], [place] [address] January, [facility] [address] [id number] [address] [place] [address], [place] [address] January, [facility] [address] [id number] [address] [place] [address], [place] [address] January, [facility] [address] [id number] [address] [place] [address], [place] [address] January, [facility] [address] [id number] [facility] [place] [address] January, [facility] [address] [id number] [address] [place] [address], [place] [address] January, [facility] [address] [id number] [address] [place] [address], [place] [address] January, [facility] [address] [id number] [address] [place] [address], [place] [address] January, [facility] [address] [id number] [address] [place] [address], [place] [address] January, [facility] [address] [id number] [address] [place] [address], [place] [address] January, [facility] [address] [id number] [address] [place] [address], [place] [address] January, [facility] [address] [id number] [address] [place] [address], [place] [address] Dec, [facility] [address] [id number] [address] [place] [address], [place] [address] Dec, [facility] [address] [id number] [address] [place] [address], [place] [address] Dec, [facility] [address] [id number] [address] [place] [address], [place] [address] Dec, [facility] [address] [id number] [address] [place] [address], [place] [address] Dec, [facility] [address] [id number] [address] [place] [address], [place] [address] Dec, [facility] [address] [id number] [address] [place] [address], [place] [address] Dec, [facility] [address] [id number] [address] [place] [address], [place] [address] Dec, [facility] [address] [id number] [address] [place] [address], [place] [address] Dec, [facility] [address] [id number] [facility] [place] [address] Dec, [facility] [address] [id number] [address] [place] [address], [place] [address] Nov, [facility] [address] [id number] [facility] [place] [address] Nov, [facility] [address] [id number] [address] [place] [address], [place] [address] Nov, [facility] [address] [id number] [address] [place] [address], [place] [address] Nov, [facility] [address] [id number] [address] [place] [address], [place] [address] Nov, [facility] [address] [id number] [address] [place] [address], [place] [address] Nov, [facility] [address] [id number] [address] [place] [address], [place] [address] Nov, [facility] [address] [id number] [address] [place] [address], [place] [address] Nov, [facility] [address] [id number] [address] [place] [address], [place] [address] Nov, [facility] [address] [id number] [address] [place] [address], [place] [address] Nov, [facility] [address] [id number] [address] [place] [address], [place] [address] Oct, [facility] [address] [id number] [address] [place] [address], [place] [address] Oct, [facility] [address] [id number] [address] [place] [address], [place] [address] Oct, [facility] [address] [id number] [address] [place] [address], [place] [address] Oct, [facility] [address] [id number] [address] [place] [address], [place] [address] Oct, [facility] [address] [id number] [address] [place] [address], [place] [address] Oct, [facility] [address] [id number] [address] [place] [address], [place] [address] Oct, [facility] [address] [id number] [address] [place] [address], [place] [address] Oct, [facility] [address] [id number] [address] [place] [address], [place] [address] Oct, [facility] [address] [id number] [address] [place] [address], [place] [address] Oct, [facility] [address] [id number] [address] [place] [address], [place] [address] Oct, [facility] [address] [id number] [address] [place] [address], [place] [address] Oct, [facility] [address] [id number] [address] [place] [address], [place] [address] Oct, [facility] [address] [id number] [address] [place] [address], [place] [address] Oct, [facility] [address] [id number] [address] [place] [address], [place] [address] Sep, [facility] [address] [id number] [address] [place] [address] Sep, [facility] [address] [id number] [address] [place] [address], [place] [address] Sep, [facility] [address] [id number] [address] [place] [address], [place] [address] Sep, [facility] [address] [id number] [address] [place] [address] Sep, [facility] [address] [id number] [address] [place] [address], [place] [address] 14 Sep, 2013 [facility] [address] [id number] [address] [place] [address], [place] [address] 14 Sep, 2013 [facility] [address] [id number] [address] [place] [address], [place] [address] 14 Sep, 2013 [facility] [address] [id number] [address] [place] [address], [place] [address] 08 Sep, 2013 [facility] [address] [id number] [address] [place] [address], [place] [address] 08 Sep, 2013 [facility] [address] [id number] [address] [place] [address], [place] [address] Aug, [facility] [address] [id number] [address] [place] [address], [place] [address] Aug, [facility] [address] [id number] [address] [place] [address], [place] [address] Jul, [facility] [address] [id number] [address] [place] [address], [place] [address] Jul, [facility] [address] [id number] [address] [place] [address], [place] [address] Jul, [facility] [address] [id number] [address] [place] [address], [place] [address] Jul, [facility] [address] [id number] [address] [place] [address], [place] [address] Jul, [facility] [address] [id number] [address] [place] [address], [place] [address] Jul, [facility] [address] [id number] [address] [place] [address], [place] [address] Jul, [facility] [address] [id number] [address] [place] [address], [place] [address] Jul, [facility] [address] [id number] [address] [place] [address], [place] [address] Jul, [facility] [address] [id number] [address] [place] [address], [place] [address] 08 Jul, 2012 [facility] [address] [id number] [address] [place] [address], [place] [address] Jul, 2012 [facility] [address] [id number] [address] [place] [address], [place] [address] Jul, 2012 [facility] [address] [id number] [address] [place] [address], [place] [address] Jul, 2012 [facility] [address] [id number] [address] [place] [address], [place] [address] Jul, 2012 [facility] [address] [id number] [address] [place] [address], [place] [address] Jul, 2012 [facility] [address] [id number] [address] [place] [address], [place] [address] Jul, 2012 [facility] [address] [id number] [address] [place] [address], [place] [address] Jul, [facility] [address] [id number] [address] [place] [address], [place] [address] Jul, [facility] [address] [id number] [address] [place] [address], [place] [address] Jul, [facility] [address] [id number] [address] [place] [address], [place] [address] Jun, 2012 [facility] [address] [id number] [address] [place] [address], [place] [address] 16 Jun, 2012 [facility] [address] [id number] [address] [place] [address], [place] [address] Jun, 2012 [facility] [address] [id number] [address] [place] [address], [place] [address] Jun, 2012 [facility] [address] [id number] [address] [place] [address], [place] [address] Jun, 2012 [facility] [address] [id number] [address] [place] [address], [place] [address] 16 Jun, 2013 [facility] [address] [id number] [address] [place] [address], [place] [address] 10 Jun, 2013 [facility] [address] [id number] [address] [place] [address], [place] [address] 10 Jun, 2013 [facility] [address] [id number] [address] [place] [address], [place] [address] Jun, [facility] [address] [id number] [address] [place] [address], [place] [address] Jun, [facility] [address] [id number] [address] [place] [address], [place] [address] Jun, [facility] [address] [id number] [address] [place] [address], [place] [address] 26 May, 2013 [facility] [address] [id number] [address] [place] [address], [place] [address] 25 May, 2013 [facility] [address] [id number] [address] [place] [address], [place] [address] 19 May, 2012 [facility] [address] [id number] [address] [place] [address], [place] [address] 17 May, 2012 [facility] [address] [id number] [address] [place] [address], [place] [address] 11 May, 2013 [facility] [address] [id number] [address] [place] [address], [place] [address] 10 May, 2012 [facility] [address] [id number] [address] [place] [id number] 09 May, 2012 [facility] [address] [id number] [address] [place] [address], [place] [address] 05 May, 2013 [facility] [address] [id number] [address] [place] [address], [place] [id number] 30 Apr, 2013 [facility] [address] [id number] [address] [place] [address], [place] [id number] 29 Apr, 2013 [facility] [address] [id number] [address] [place] [address], [place] [address] Apr, [facility] [address] [id number] [address] [place] [address], [place] [address] Apr, [facility] [address] [id number] [address] [place] [address], [place] [address] Apr, [facility] [address] [id number] [address] [place] [address], [place] [id number] Mar, [facility] [address] [id number] [address] [place] [address], [place] [address] Mar, [facility] [address] [id number] [address] [place] [address], [place] [address] Mar, [facility] [address] [id number] [address] [place] [address], [place] [address] Mar, [facility] [address] [id number] [address] [place] [address], [place] [address] Mar, [facility] [address] [id number] [address] [place] [address], [place] [address] Mar, [facility] [address] [id number] [address] [place] [address], [place] [address] Mar, [facility] [address] [id number] [address] [place] [address], [place] [address] Mar, [facility] [address] [id number] [address] [place] [address], [place] [address] Feb, [facility] [address] [id number] [address] [place] [address], [place] [id number] Feb, [facility] [address] [id number] [address] [place] [address], [place] [address] January, [facility] [address] [id number] [address] [place] [address], [place] [id number] January, [facility] [address] [id number] [address] [place] [address], [place] [address] Dec, [facility] [address] [id number] [address] [place] [address], [place] [address] Dec, [facility] [address] [id number] [address] [place] [address], [place] [address] 23 Nov, 2012 [facility] [address] [id number] [address] [place] [address], [place] [address] Nov, [facility] [address] [id number] [address] [place] [address], [place] [address] Nov, [facility] [address] [id number] [address] [place] [address], [place] [address] 14 Nov, 2012 [facility] [address] [id number] [address] [place] [address], [place] [address] 27 Oct, 2012 [facility] [address] [id number] [address] [place] [address], [place] [address] Oct, [facility] [address] [address] [id number] [address] [place] [address], [place] [address] Oct, [facility] [address] [id number] [address] [place] [address], [place] [address] Oct, [facility] [address] [id number] [address] [place] [address], [place] [address] 16 Oct, 2012 [facility] [address] [id number] [address] [place] [address], [place] [address] 14 Oct, 2012 [facility] [address] [id number] [address] [place] [address], [place] [address] 08 Oct, 2012 [facility] [address] [id number] [address] [place] [address], [place] [address] 07 Oct, 2012 [facility] [address] [id number] [address] [place] [address], [place] [address] 03 Oct, 2012 [facility] [address] [id number] [address] [place] [address], [place] [address] Sep, [facility] [address] [id number] [address] [place] [address], [place] [address] 29 Sep, 2012 [facility] [address] [id number] [address] [place] [address], [place] [address] Sep, [facility] [address] [id number] [address] [place] [address], [place] [address] Sep, [facility] [address] [id number] [address] [place] [address], [place] [address] 17 Sep, 2012 [facility] [address] [id number] [address] [place] [address], [place] [address] 10 Sep, 2012 [facility] [address] [id number] [address] [place] [address], [place] [address] Sep, [facility] [address] [id number] [address] [place] [address], [place] [address] Sep, [facility] [address] [id number] [address] [place] [address], [place] [address] 31 Aug, 2012 [facility] [address] [id number] [address] [place] [address], [place] [address] 31 Aug, 2012 [facility] [address] [id number] [address] [place] [address], [place] [address] Aug, [facility] [address] [id number] [address] [place] [address], [place] [address] Aug, [facility] [address] [id number] [address] [place] [address], [place] [address] Aug, [facility] [address] [id number] [address] [place] [address], [place] [address] Aug, [facility] [address] [id number] [address] [place] [address], [place] [address] 18 Aug, 2012 [facility] [address] [id number] [address] [place] [address], [place] [address] 18 Aug, 2012 [facility] [address] [id number] [address] [place] [address], [place] [address] Jul, [facility] [address] [id number] [address] [place] [address], [place] [address] Jul, [facility] [address] [id number] [address] [place] [address], [place] [address] Jul, [facility] [address] [id number] [address] [place] [address], [place] [address] Jul, [facility] [address] [id number] [address] [place] [address], [place] [address] Jul, [facility] [address] [id number] [address] [place] [address], [place] [address] Jul, [facility] [address] [id number] [address] [place] [address], [place] [address] Jun, [facility] [address] [id number] [address] [place] [address], [place] [address] Jun, [facility] [address] [id number] [address] [place] [address], [place] [address] Jun, [facility] [address] [id number] [address] [place] [address], [place] [address] Jun, [facility] [address] [id number] [address] [place] [address], [place] [address] Jun, [facility] [address] [id number] [address] [place] [address], [place] [address] Jun, [facility] [address] [id number] [address] [place] [address] Jun, [facility] [address] [id number] [address] [place] [address], [place] [address] Jun, [facility] [address] [id number] [address] [place] [address], [place] [address] Jun, [facility] [address] [id number] [address] [place] [address], [place] [address] 26 May, 2012 [facility] [address] [id number] [address] [place] [address] May, [facility] [address] [id number] [address] [place] [address], [place] [address] May, [facility] [address] [id number] [address] [place] [address], [place] [address] Apr, [facility] [address] [id number] [address] [place] [address], [place] [address] Apr, [facility] [address] [id number] [address] [place] [address], [place] [address] Apr, [facility] [address] [id number] [address] [place] [address], [place] [address] Apr, [facility] [address] [id number] [address] [place] [address], [place] [address] Apr, [facility] [address] [id number] [address] [place] [address], [place] [address] Apr, [facility] [address] [id number] [address] [place] [address], [place] [address] Mar, [facility] [address] [id number] [address] [place] [address], [place] [address] Mar, [facility] [address] [id number] [address] [place] [address], [place] [address] Mar, [facility] [address] [id number] [address] [place] [address], [place] [address] Mar, [facility] [address] [id number] [address] [place] [address], [place] [address] Feb, [facility] [address] [id number] [address] [place] [address], [place] [address] Feb, [facility] [address] [id number] [address] [place] [address], [place] [address] Feb, [facility] [address] [id number] [address] [place] [address], [place] [address] Feb, [facility] [address] [id number] [address] [place] [address], [place] [address] Feb, [facility] [address] [id number] [address] [place] [address], [place] [address] January, [facility] [address] [id number] [address] [place] [address], [place] [address] January, [facility] [address] [id number] [address] [place] [address], [place] [address] January, [facility] [address] [id number] [address] [place] [address], [place] [address] January, [facility] [address] [id number] [address] [place] [address], [place] [address] January, [facility] [address] [id number] [address] [place] [address], [place] [address] January, [facility] [address] [id number] [address] [place] [address], [place] [address] Dec, [facility] [address] [id number] [address] [place] [address], [place] [address] Dec, [facility] [address] [id number] [address] [place] [address], [place] [address] Dec, [facility] [address] [id number] [address] [place] [address], [place] [address] Dec, [facility] [address] [id number] [address] [place] [address], [place] [address] Dec, [facility] [address] [id number] [address] [place] [address], [place] [address] 27 Nov, 2011 [facility] [address] [id number] [address] [place] [address], [place] [address] 14 Nov, 2011 [facility] [address] [id number] [address] [place] [address], [place] [address] 12 Nov, 2011 [facility] [address] [id number] [address] [place] [address], [place] [address] Nov, [facility] [address] [id number] [address] [place] [address], [place] [address] 29 Oct, 2011 [facility] [address] [id number] [address] [place] [address], [place] [address] Oct, [facility] [address] [id number] [address] [place] [address], [place] [address] Oct, [facility] [address] [id number] [address] [place] [address], [place] [address] Oct, [facility] [address] [id number] [address] [place] [address], [place] [address] Oct, [facility] [address] [id number] [address] [place] [address], [place] [address] Sep, [facility] [address] [id number] [address] [place] [address], [place] [address] Sep, [facility] [address] [id number] [address] [place] [address], [place] [address] Sep, [facility] [address] [id number] [address] [place] [address], [place] [address] Sep, [facility] [address] [id number] [address] [place] [address], [place] [address] Sep, [facility] [address] [id number] [address] [place] [address], [place] [address] Sep, [facility] [address] [id number] [address] [place] [address], [place] [address] Aug, [facility] [address] [id number] [address] [place] [address], [place] [address] Aug, [facility] [address] [id number] [address] [place] [address], [place] [address] Aug, [facility] [address] [id number] [address] [place] [address], [place] [address] Jul, [facility] [address] [id number] [address] [place] [address], [place] [address] Jul, [facility] [address] [id number] [address] [place] [address], [place] [address] Jul, [facility] [address] [id number] [address] [place] [address], [place] [address] Jul, [facility] [address] [id number] [address] [place] [address], [place] [address] Jun, [facility] [address] [id number] [address] [place] [address], [place] [address] Jun, [facility] [address] [id number] [address] [place] [address], [place] [address] Jun, [facility] [address] [id number] [address] [place] [address], [place] [address] Jun, [facility] [address] [id number] [address] [place] [address], [place] [address] Jun, [facility] [address] [id number] [address] [place] [address], [place] [address] Jun, [facility] [address] [id number] [address] [place] [address], [place] [address] Mar, [facility] [address] [id number] [address] [place] [address], [place] [address] Dec, [facility] [address] [id number] [address] [place] [address], [place] [address] Dec, [facility] [address] [id number] [address] [place] [address], [place] [address] Nov, [facility] [address] [id number] [address] [place] [address], [place] [address] 16 Nov, 2010 [facility] [address] [id number] [address] [place] [address], [place] [address] Sep, [facility] [address] [id number] [address] [place] [address], [place] [address] Aug, [facility] [address] [id number] [address] [place] [address], [place] [address] 29 Aug, 2010 [facility] [address] [id number] [address] [place] [address], [place] [address] Aug, [facility] [address] [id number] [address] [place] [address], [place] [address] 29 Aug, 2010 [facility] [address] [id number] [address] [place] [address], [place] [address] 27 Aug, 2010 [facility] [address] [id number] [address] [place] [address], [place] [address] 14 Aug, 2010 [facility] [address] [id number] [address] [place] [address], [place] [address] 08 Aug, 2010 [facility] [address] [id number] [address] [place] [address], [place] [address] 08 Aug, 2010 [facility] [address] [id number] [address] [place] [address], [place] [address] 07 Aug, 2010 [facility] [address] [id number] [address] [place] [address], [place] [address] Aug, [facility] [address] [id number] [address] [place] [address], [place] [address] Aug, [facility] [address] [id number] [address] [place] [address], [place] [address] Aug, [facility] [address] [id number] [address] [place] [address], [place] [address] 30 Jul, 2010 [facility] [address] [id number] [address] [place] [address], [place] [address] Jul, [facility] [address] [id number] [address] [place] [address], [place] [address] 30 Jul, 2010 [facility] [address] [id number] [address] [place] [address], [place] [address] 17 Jul, 2010 [facility] [address] [id number] [address] [place] [address] 08 Jul, 2010 [facility] [address] [id number] [address] [place] [address], [place] [address] Jul, [facility] [address] [id number] [address] [place] [address], [place] [address] 24 Jun, 2010 [facility] [address] [id number] [address] [place] [address], [place] [address] Jun, [facility] [address] [id number] [address] [place] [address], [place] [address] Jun, [facility] [address] [id number] [address] [place] [address], [place] [address] Jun, [facility] [address] [id number] [address] [place] [address], [place] [address] 16 Apr, 2010 [facility] [address] [id number] [address] [place] [address], [place] [address] Mar, [facility] [address] [id number] [address] [place] [address], [place] [address] Feb, [facility] [address] [id number] [address] [place] [address] January, [facility] [address] [id number] [address] [place] [address], [place] [address] Dec, [facility] [address] [id number] [address] [place] [address] Nov, [facility] [address] [id number] [address] [place] [address], [place] [address] Aug, [facility] [address] [id number] [address] [place] [address], [place] [address] Aug, [facility] [address] [id number] [address] [place] [address], [place] [address] 07 Aug, 2009 [facility] [address] [id number] [address] [place] [address], [place] [address] Jul, [facility] [address] [id number] [address] [place] [id number] Jul, [facility] [address] [id number] [address] [place] [address] Jul, [facility] [address] [id number] [address] [place] [address] Jun, [facility] [address] [id number] [address] [place] [id number] Jun, [facility] [address] [id number] [address] [place] [address] Jun, [facility] [address] [id number] [address] [place] [address] Jun, [facility] [address] [id number] [address] [place] [address] Jun, [facility] [address] [id number] [address] [place] [id number] Jun, [facility] [address] [id number] [address] [place] [address] Apr, [facility] [address] [id number] [address] [place] [address] Apr, [facility] [address] [id number] [address] [place] [address] Feb, [facility] [address] [id number] [address] [place] [id number] January, [facility] [address] [id number] [address] [place] [address] Dec, IMMUNIZATIONS No Known Immunizations SOCIAL HISTORY Never Assessed REASON FOR VISIT f/u PLAN OF CARE Activity Details Follow Up 2 Weeks Reason:depression VITAL SIGNS MEDICATIONS Unknown Medications RESULTS No Results PROCEDURES Procedure Date Ordered Result Body Site [facility] VISIT MENTAL HEALTH ESTAB PT Aug 13, 2018 Psychotherapy, patient &/family, 45 minutes, established patient Aug 13, 2018 INSTRUCTIONS MEDICATIONS ADMINISTERED No Known Medications [...] tunnel release (Left) 2000 Surgical History EGD ([facility]) 2009 Surgical History colonoscopy 2009 ([facility]), 2013 ([place] ) Surgical History heart cath: CAD w/ [...]
--- NOTE | 2020-03-01 18:50 | NUR ---
LORENA MCKEON admitted to room 407-1, with an admitting diagnosis of uncontrolled DM, on 03/01/20 from ED via wheelchair, accompanied by staff and . LORENA MCKEON introduced to surroundings, call light, bed controls, phone, TV, temperature control, lights, meal times, smoking policy, visitor policy, side rail policy, bathrooms and showers. Patient Rights given to patient in the handbook. LORENA MCKEON verbalizes understanding that [facility] is not responsible for the loss or damage to any personal effects or valuables that are kept in the patients possession during their hospitalization. The following Patient Care Plans were discussed with the patient: Discharge Planning, pain management, dehydration, and medications. LORENA MCKEON verbalizes understanding of Interdisciplinary Patient Education. Patient and/or family were informed about the Rapid Response Team and its purpose.
[2020-03-01 18:51] VITALS: BP 168/73
[2020-03-01 20:06] VITALS: BP 168/73
[2020-03-01] MEDS ORDERED: CATHETER FLUSH 10 ML SYR IV PRN (20:15)
[2020-03-01] MEDS ORDERED: morphine INJ 4 MG/ML 1 ML (VIAL/SYRINGE) IV PRN (20:15)
[2020-03-01] MEDS ORDERED: oxyCODONE/APAP 10/325MG (PERCOCET 10) TABLET PO PRN (20:15)
[2020-03-01 23:50] VITALS: BP 190/76
[2020-03-02] MEDS: CATHETER FLUSH 10 ML SYR IV SCH ×4 (00:07→22:19)
--- NOTE | 2020-03-02 00:11 | NUR ---
AUDREY NOTIFIED OF PT BP OF 190/79. NEW ORDERS OBTAINED. WILL CONTINUE TO MONITOR.
[2020-03-02] MEDS: meTOproloL SUCCINATE 50 MG (TOPROL XL) TAB PO SCH ×2 (01:18→09:52)
[2020-03-02] MEDS: cloNIDine 0.1 MG (CATAPRES) TAB PO SCH ×3 (01:18→22:18)
[2020-03-02 04:00] VITALS: BP 146/74
[2020-03-02] MEDS: RT-ALBUTEROL SULF 2.5 MG/3 ML PRE-MIX VIAL INH PRN ×2 (04:15→22:22)
[2020-03-02 05:08] LABS: BASOPHILS % (AUTO) 1 % (0-10); EOSINOPHILS # (AUTO) 0.1 10^3/uL (0.0-0.3); EOSINOPHILS % (AUTO) 3 % (0-10); HEMATOCRIT 41 % (40-54); LYMPHOCYTES # (AUTO) 1.3 X 10^3 (1.0-4.0); LYMPHOCYTES % (AUTO) 24 % (12-44); MEAN CORPUSCULAR HEMOGLOBIN 28 PG (25-34); MEAN CORPUSCULAR HGB CONC 32 G/DL (32-36); MEAN CORPUSCULAR VOLUME 88 FL (80-99); MEAN PLATELET VOLUME 10.8 FL (7.4-10.4); MONOCYTES # (AUTO) 0.6 X 10^3 (0.0-1.0); MONOCYTES % (AUTO) 11 % (0-12); NEUTROPHILS # (AUTO) 3.2 X 10^3 (1.8-7.8); NEUTROPHILS % (AUTO) 62 % (42-75); PLATELET COUNT 253 10^3/uL (130-400); RED CELL DISTRIBUTION WIDTH 14.4 % (10.0-14.5); WHITE BLOOD COUNT 5.3 10^3/uL (4.3-11.0)
[2020-03-02 05:26] LABS: ALBUMIN 3.3 GM/DL (3.2-4.5); CHLORIDE 101 MMOL/L (98-107); POTASSIUM 3.8 MMOL/L (3.6-5.0); SODIUM 139 MMOL/L (135-145)
[2020-03-02 05:27] LABS: CALCIUM 8.3 MG/DL (8.5-10.1)
[2020-03-02 05:28] LABS: TRIGLYCERIDES 149 MG/DL (<150); VLDL CHOLESTEROL 30 MG/DL (5-40)
[2020-03-02 05:29] LABS: GLUCOSE 246 MG/DL (70-105); TOTAL PROTEIN 6.1 GM/DL (6.4-8.2)
[2020-03-02 05:30] LABS: CARBON DIOXIDE 29 MMOL/L (21-32)
[2020-03-02 05:31] LABS: BILIRUBIN,TOTAL 0.3 MG/DL (0.1-1.0)
[2020-03-02 05:32] LABS: ALKALINE PHOSPHATASE 87 U/L (40-136); CREATININE SERUM 0.86 MG/DL (0.60-1.30); GFR ESTIMATED > 60
[2020-03-02 05:33] LABS: CHOLESTEROL 194 MG/DL (< 200)
[2020-03-02 05:34] LABS: BUN/CREATININE RATIO 15
[2020-03-02 05:35] LABS: ALANINE AMINOTRANSFERASE 12 U/L (0-55); HDL CHOLESTEROL 39 MG/DL (40-60)
[2020-03-02] MEDS: inSUlin ASPART (NovoLOG) 1 UNIT/0.01 ML (CHARGE PER UNIT) SC SCH ×4 (06:10→22:19)
[2020-03-02 08:01] VITALS: BP 159/74
[2020-03-02] MEDS: GABAPENTIN 600 MG (NEURONTIN) TAB PO SCH ×3 (09:52→22:17)
[2020-03-02] MEDS: ASPIRIN E.C. 81 MG (ECOTRIN) TAB PO SCH (09:52)
[2020-03-02] MEDS ORDERED: PATIENT MAY USE OWN MED,SINGLE MED PO SCH (10:00)
[2020-03-02] MEDS: ONDANSETRON 4 MG/2 ML (SDV) Z0FRAN IV PRN (11:31)
[2020-03-02] MEDS ORDERED: ONDA8TAB13 PO (12:27)
[2020-03-02] MEDS ORDERED: NORT25CA PO (12:27)
[2020-03-02] MEDS ORDERED: OXYC-465 PO (12:27)
[2020-03-02] MEDS ORDERED: FLUO20CA46 PO (12:27)
[2020-03-02] MEDS ORDERED: GABA300C PO (12:27)
[2020-03-02] MEDS ORDERED: TRAZ-227 PO (12:27)
[2020-03-02] MEDS ORDERED: ATOR40TA70 PO (12:27)
[2020-03-02] MEDS ORDERED: METO10TA7 PO (12:27)
[2020-03-02] MEDS ORDERED: DICL100G31 TOP (12:27)
[2020-03-02] MEDS ORDERED: IBRU420T PO (12:27)
[2020-03-02] MEDS ORDERED: MIRT15TA6 PO (12:27)
[2020-03-02 12:30] VITALS: BP 159/74
[2020-03-02] MEDS ORDERED: TMSL.4C PO (12:30)
[2020-03-02] MEDS ORDERED: MTP100TCR PO (12:37)
[2020-03-02] MEDS ORDERED: LOPE-175 PO (12:37)
--- NOTE | 2020-03-02 12:38 | NUR ---
SPOKE WITH THE PATIENTS AND WENT THRU THE EXT MED HISTORY TO COMPLETE THE MED REC PATIENTS WAS ABLE TO NAME ALL HIS MEDICATIONS AND WHEN/HOW HE TAKES EACH- ALL HER INFORMATION MATCHED THE EXT MED HISTORY OTC MEDs: IMODIUM ASPIRIN 81 [employer]
--- NOTE | 2020-03-02 12:50 | Consultation-Cardiology ---
HPI-Cardiology Cardiology Consultation: Date of Consultation 03/02/20 Time Seen by a Provider: 09:15 Date of Admission Attending Physician Shantelle Peterson MD Admitting Physician [facility], [facility] [place],[facility] Consulting Physician ESPERANZA STANFORD MD, MA, FACP, FACC, FSCAI, CCDS HPI: Chief Complaint: CC: Chest discomfort, L arm heaviness, poor balance, dizziness HPI 55 yo man who was admitted to [facility] on 03/01/20 with symptoms of L upper chest discomfort, L arm heaviness, poor balance, dizziness, and intermittent n/v Chest discomfort: L upper parasternal, present continuously for 4-5 days, associated with some heaviness in the L arm that lasted only a few hours on 03/01/20, mild to mod in intensity, pressure like, limited a small area, w/o aggravating or relieving factors, associated on at least one occasion with nausea and vomiting Notes gen malaise and weakness. No focal weakness Does not report fever or chills Has chronic, exertional shortness of breath that is unchanged in the recent past Review of Systems-Cardiology Review of Systems Constitutional: malaise, tiredness; No weight loss, No weight gain Ears/Nose/Throat: No ear discharge, No nasal drainage, No recent hearing loss Respiratory: As described under HPI Cardiovascular: As described under HPI Gastrointestinal: No diarrhea, No nausea, No vomiting Genitourinary: No dysuria, No hematuria, No urine frequency changes Musculoskeletal: back pain (chronic) Skin: No rash, No ulcerations Psychiatric/Neurological: No seizure, No focal weakness, No syncope Hematologic: No bleeding abnormalities All Other Systems Reviewed Negative Unless Noted: Yes CLM-Xuhkeu-Weutzm Hx Patient Social History Alcohol Use: Denies Use Recreational Drug Use: No Smoking Status: Never a Smoker Type Used: Cigars 2nd Hand Smoke Exposure: No Recent Foreign Travel: No Recent Infectious Disease Expo: No Hospitalization with Isolation: Denies Immunizations Up To Date Tetanus Booster (TDap): Unknown Date of Pneumonia Vaccine: Aug 19, 2014 Date of Influenza Vaccine: Nov 02, 2017 Past Medical History PMH As described under Assessment. Family Medical History Family History: Alcoholism G8 BROTHER Arthritis 19 FATHER Cataracts 19 FATHER Completed stroke 19 MOTHER Deafness or hearing loss 19 FATHER Diabetes mellitus 19 MOTHER Headache disorder 19 FATHER 19 MOTHER G8 BROTHER G8 SISTER Hypercholesterolemia 19 FATHER Hypertension 19 FATHER Prostate cancer G8 BROTHER Psychosocial problem 19 MOTHER Respiratory disorder 19 FATHER 19 MOTHER Visual disorder 19 MOTHER No Family History of: AIDS Abdominal aortic aneurysm Krishna's disease Alzheimer's disease Aphasia Asthma Cancer of mouth Cardiovascular disease Colon cancer Congenital disease Congenital heart disease Coronary thrombosis Cystic fibrosis Dementia Drug abuse Dysphasia Fibrocystic disease of breast Gastroenteritis Glaucoma Infertility Kidney disease Myocardial infarction Neoplasm Not obtainable due to adoption Osteoporosis Parkinson's disease Seizure disorder Severe allergy Thyroid disease Tuberculosis Allergies and Home Medications Allergies Coded Allergies: No Known Drug Allergies (Unverified , 09/28/18) Home Medications Albuterol Sulfate 18 Gm Hfa.aer.ad, 2 PUFF INH Q4H PRN for SHORTNESS OF BREATH, (Reported) Albuterol Sulfate 1.25 Mg/3 Ml Vial.neb, 1.25 MG NEB TID PRN for SHORTNESS OF BREATH, (Reported) Allopurinol 300 Mg Tablet, 300 MG PO DAILY, (Reported) Aspirin 81 Mg Tablet.dr, 81 MG PO DAILY, (Reported) Atorvastatin Calcium 40 Mg Tablet, 40 MG PO HS, (Reported) Clonidine HCl 0.1 Mg Tablet, 0.1 MG PO BID, (Reported) Diazepam 5 Mg Tablet, 5 MG PO BID PRN for ANXIETY, (Reported) Diclofenac Sodium 100 Gm Gel..gram., 4 GM TOP Q4H PRN for JOINT PAIN, (Reported) APPLY TO KNEE AND HIP Diclofenac Sodium 100 Gm Gel..gram., 1 APPLIC TOP PRN PRN for PAIN-BREAKTHROUGH, (Reported) APPLY TO KNEES Esomeprazole Magnesium 40 Mg Capsule.dr, 40 MG PO DAILY, (Reported) Fluoxetine HCl 20 Mg Capsule, 20 MG PO DAILY, (Reported) Fluticasone Propionate 16 Gm Warren.susp, 1 SPRAY NS HS, (Reported) Furosemide 20 Mg Tablet, 60 MG PO DAILY, (Reported) TAKES 3 (20MG) TABLETS Gabapentin 300 Mg Capsule, 600 MG PO TID, (Reported) TAKES 2 (300MG) CAPS Ibrutinib 420 Mg Tablet, 420 MG PO DAILY, (Reported) Insulin Aspart 300 Units/3 Ml Solution, 5-20 UNITS SC AC, (Reported) Insulin Glargine,Hum.rec.anlog 100 Unit/1 Ml Vial, 100 UNITS SC BID, (Reported) Liraglutide 0.6 Mg/0.1 Ml Pen.injctr, 1.8 MG INJ DAILY, (Reported) Loperamide HCl 2 Mg Capsule, 2-4 MG PO BID PRN for DIARRHEA, (Reported) Metolazone 10 Mg Tablet, 10 MG PO DAILY PRN for FLUID RETENTION, (Reported) Metoprolol Succinate 100 Mg Tab.er.24h, 150 MG PO DAILY, (Reported) TAKES 1 & TABS (100MG) Mirtazapine 15 Mg Tablet, 15 MG PO HS, (Reported) Naproxen 500 Mg Tablet, 500 MG PO BID PRN for PAIN-MILD, (Reported) Nortriptyline HCl 25 Mg Capsule, 25 MG PO BID, (Reported) Ondansetron 8 Mg Tab.rapdis, 8 MG PO QID PRN for NAUSEA/VOMITING-1ST LINE, (Reported) Oxycodone HCl/Acetaminophen 1 Each Tablet, 1 EA PO Q6H PRN for PAIN-MODERATE (5- 7), (Reported) Potassium Chloride 20 Meq Tablet.er, 20 MEQ PO DAILY, (Reported) Tamsulosin HCl 0.4 Mg Cap, 0.4 MG PO DAILY, (Reported) Trazodone HCl 100 Mg Tablet, 100-200 MG PO HS, (Reported) Umeclidinium [place] 62.5 Mcg Blst.w.dev, 1 PUFF INH DAILY, (Reported) Patient Home Medication List Home Medication List Reviewed: Yes Physical Exam-Cardiology Physical Exam Vital Signs/I&O 03/02/20 03/02/20 03/02/20 03/02/20 01:00 04:00 06:46 07:00 Temp 36.4 Pulse 71 60 63 Resp 20 B/P (MAP) 146/74 (98) Pulse Ox 96 92 O2 Delivery Nasal Cannula Nasal Cannula O2 Flow Rate 2.00 2.00 03/02/20 03/02/20 08:01 12:38 Temp 36.2 Pulse 53 62 Resp 18 B/P (MAP) 159/74 (102) Pulse Ox 95 O2 Delivery Nasal Cannula O2 Flow Rate 2.00 03/02/20 00:00 Intake Total 800 ml Balance 800 ml Capillary Refill : Less Than 3 Seconds Constitutional: AAO x 3, well-developed, well-nourished, other (obese) HEENT: PERRL, hearing is well preserved; No xanthelasmas are seen Neck: carotid pulses are 2 + bilaterally, with good upstrokes Respiratory: No accessory muscle use; other (good bilat air entry; somewhat diminished at the bases) Cardiovascular: regular rate-rhythm, S1 and S2, systolic murmur (soft LILLIE at card basee) Gastrointestinal: No tender; soft; No guarding, No rebound; audible bowel sounds Extremities: other (mild to mod, chronic, pitting and non-pitting edema); No clubbing, No cyanosis Neurologic/Psychiatric: oriented x 3, other (moves all limbs equally) Skin: No rash on exposed areas, No ulcerations on exposed areas Data Review Labs Laboratory Tests 03/01/20 16:50: White Blood Count 6.7, Red Blood Count 4.43, Hemoglobin 12.9L, Hematocrit 39L, Mean Corpuscular Volume 87, Mean Corpuscular Hemoglobin 29, Mean Corpuscular Hemoglobin Concent 33, Red Cell Distribution Width 14.3, Platelet Count 255, Mean Platelet Volume 11.1H, Neutrophils (%) (Auto) 60, Lymphocytes (%) (Auto) 26, Monocytes (%) (Auto) 11, Eosinophils (%) (Auto) 2, Basophils (%) (Auto) 1, Neutrophils # (Auto) 4.1, Lymphocytes # (Auto) 1.7, Monocytes # (Auto) 0.7, Eos inophils # (Auto) 0.2, Basophils # (Auto) 0.0, Prothrombin Time 13.0, INR Comment 0.9, Activated Partial Thromboplast Time 28, D-Dimer 0.45, Sodium Level 133L, Potassium Level 3.7, Chloride Level 96L, Carbon Dioxide Level 25, Anion Gap 12, Blood Urea Nitrogen 13, Creatinine 1.18, Estimat Glomerular Filtration Rate > 60, BUN/Creatinine Ratio 11, Glucose Level 525*H, Calcium Level 8.6, Corrected Calcium 9.0, Magnesium Level 1.5L, Total Bilirubin 0.3, Aspartate Amino Transf (AST/SGOT) 15, Alanine Aminotransferase (ALT/SGPT) 15, Alkaline Phosphatase 89, Myoglobin 37.9, Troponin I 0.076H, B-Type Natriuretic Peptide 97.3, Total Protein 6.4, Albumin 3.5 03/02/20 00:37: Glucometer 343H 03/02/20 03:26: Glucometer 285H 03/02/20 05:00: White Blood Count 5.3, Red Blood Count 4.63, Hemoglobin 13.0L, Hematocrit 41, Mean Corpuscular Volume 88, Mean Corpuscular Hemoglobin 28, Mean Corpuscular Hemoglobin Concent 32, Red Cell Distribution Width 14.4, Platelet Count 253, Mean Platelet Volume 10.8H, Neutrophils (%) (Auto) 62, Lymphocytes (%) (Auto) 24, Monocytes (%) (Auto) 11, Eosinophils (%) (Auto) 3, Basophils (%) (Auto) 1, Neutrophils # (Auto) 3.2, Lymphocytes # (Auto) 1.3, Monocytes # (Auto) 0.6, Eosinophils # (Auto) 0.1, Basophils # (Auto) 0.0, Sodium Level 139, Potassium Level 3.8, Chloride Level 101, Carbon Dioxide Level 29, Anion Gap 9, Blood Urea Nitrogen 13, Creatinine 0.86, Estimat Glomerular Filtration Rate > 60, BUN/Creatinine Ratio 15, Glucose Level 246H, Calcium Level 8.3L, Corrected Calcium 8.9, Total Bilirubin 0.3, Aspartate Amino Transf (AST/SGOT) 15, Alanine Aminotransferase (ALT/SGPT) 12, Alkaline Phosphatase 87, Total Protein 6.1L, Albumin 3.3, Triglycerides Level 149, Cholesterol Level 194, LDL Cholesterol Direct 148H, VLDL Cholesterol 30, HDL Cholesterol 39L 03/02/20 11:10: Glucometer 154H A/P-Cardiology Assessment/Admission Diagnosis Chest discomfort in the setting of known CAD and minimal troponin elevation. Cannot exclude NSTEMI Echo of Sep 2017LVEF 60-65%. Wall thickness is mod increased. LVEF 60-65%. LA is mod dilated Exertional shortness of breath, chronic CAD - s/p Promus element 3.5 x 24 mm stent to the proximal LAD on 05-14-2014. Last card cath of 10/20/15 showed mild to mod CAD, patent LAD stent, LVEF 50%, normal LVEDP, no significant MR MPI of Jul 24, 2018 is indicative of a small to mod sized apical infarction. Apical hypokinesis. Mod cardiomegaly. LVEF 55% Abnormal ECG: ECG of 08/22/16 shows sinus rhythm with freq PACs, left axis dev, clockwise rotation of the heart, cannot exclude old ant OR Holter of 09/02/16 showed NSR with occ PACs and PVCs, no SVT or VT, no significant miguel Monoclonal B-cell lymphocytosis and lymphoma, followed by Dr Norton HTN HLP - statin therapy DM II, not well controlled Obesity with BMI of approx 56 H/O CML H/O ac renal failure d/t rhabdomyolysis of undetermined etiology in the early according to the patient H/O bi-polar disorder COPD Sleep apnea, treated with CPAP Intolerance to KRISTI secondary to cough Carotid u/s from July 2017 showed minimal bilat plaque without evidence of hemodynamic signif Chronic, bilateral leg swelling and intermittent venous ulcers (managed by [facility]) No significant obstructive PAD on seg pressures of 09/06/19 Discussion and Recomendations * Continue ASA and bb * DVT prophylaxis * Card cath recommended. We discussed in detail the rationale, procedure, risks, benefits, potential complications, and alternatives of card cath and possible ad hoc cor intervention. He understands and provides informed consent * I discussed his case with Dr Tapia * Monitor labs * Further recs to based on his hosp course Clinical Quality Measures AMI/AHF: ASA po Prior to arrival: No DVT/VTE Risk/Contraindication: Risk Factor Score Per Nursin RFS Level Per Nursing on Admit: 4+=Very High ESPERANZA STANFORD MD FACP FAC CCDS Mar 02, 2020 12:50
[2020-03-02] MEDS: DIAZEPAM 5 MG (VALIUM) TABLET PO PRN ×2 (13:28→22:18)
--- NOTE | 2020-03-02 13:29 | NUR ---
"RD ASSESSMENT PMHx: CAD; WA; hypercholesterolemia; HTN; seizure disorder; chronic UTI; GERD; DM; CA(leukemia; skin; lymphoma) PT INTERACTION: Pt was awake and pleasant during nutrition assessment. Pt states current appetite is poor and has been for the past 2 days. Note pt refused 1 meal, per chart review. Pt states following a regular diet at home, and has no issues with chewing/swallowing food. Pt states recent issues with nausea, vomiting, and diarrhea, and that his last BM wa 03/02. Note pt not currently on bowel regimen per chart review. Pt states recent 30# wt loss x6mon. Note unable to determine recent wt hx, per chart review. Pt states current DM management is poor. Note unable to determine recent HbA1c, per chart review. ABNORMAL NUTRITION-RELATED LAB VALUES LOW: Ca 8.3; Pro 6.1; HDL 39 HIGH: glu 246; LDL 148 Est. kcal needs: 2608-2283 kcal | 25-30 kcal/kg Est. Pro needs: 67-81 g Pro | 1.0-1.2 g Pro/kg PES STATEMENT: Inadequate oral intake (NI-2.1) related to loss of appetite | nausea | vomiting | diarrhea as evidenced by pt interview | pt refused 1 meal INTERVENTION: Continue with current diet order of CHO 60g/m 1snack diet. Add Glucerna (vary) to meals TID, for increased kcal intake. Provides 220 kcal and 10 g Pro per serving. Discussed and provided diet education on DM management. Discussed CHO counting, serving sizes, smartphone applications, and fiber content. Pt verbalized understanding of material presented. Will continue to follow and reassess as pt needs, intake, and status change. MONITOR/EVALUATE: PO Intake; Plan of Care; Hydration Status; Weight Status; Lab Values Aura Duran, MS, RD, LD"
[2020-03-02] MEDS ORDERED: ONDANSETRON 4 MG/2 ML (SDV) Z0FRAN IVP ONE (14:00)
[2020-03-02] MEDS: PROMETHAZINE INJ 25 MG/ML (PHENERGAN) AMP IVP PRN ×2 (14:16→22:18)
--- NOTE | 2020-03-02 15:54 | Diagnostic Imaging Report ---
PROCEDURE: US carotid duplex, bilateral. TECHNIQUE: Multiple real-time grayscale images were obtained over the carotid arteries in various projections, bilaterally. Additional spectral analysis and color Doppler duplex images were also obtained. INDICATION: Presyncope and dizziness. FINDINGS: There is xhyu-eb-iesxhvgz plaque in both carotid bulbs and proximal right ICA. There is significant plaque in proximal mid left ICA. Velocities on the right are unremarkable. There is a high-grade stenosis in the mid left ICA with velocity measurements of 389 cm/s. The distal left ICA is not well seen and could potentially be occluded. Both vertebral arteries show antegrade flow. IMPRESSION: High-grade mid left ICA stenosis greater than 90% with questionable occlusion distally. CT angiography would be useful for further characterization if clinically indicated. Parameters based on the consensus panel Delgado-Scale and Doppler ultrasound criteria published July 2003, Radiology, Volume 229. DOPPLER (peak systolic velocity M/S Right Left CCA .98 .58 ICA Proximal .52 .41 ICA Mid 1.11 3.89 ICA Distal 1.10 NOT WELL SEEN RATIO 1.13 6.71 ECA 1.11 1.18 VERT .37 .14 Dictated by: Dictated on workstation # [id number]
[2020-03-02 16:10] VITALS: BP 148/83
[2020-03-02] MEDS: ENOXAPARIN 60 MG/0.6 ML (LOVENOX) SYR SC SCH (17:53)
--- NOTE | 2020-03-02 20:15 | History & Physical ---
HPI History of Present Illness: 55 yo M that presented with left chest and arm pain. Patient that states that it started 2 days ago but got worse about 2 hrs prior to presenting to ER. States that he has been dizzy and feeling like he is going to pass out for the last 3 months but on monday it got worse and he started vomiting any time he would ch katiana position. Currently is nauseous and feeling like he is going to vomit. States that his chest pain has improved since admission. Source: patient, spouse Exam Limitations: no limitations Date seen by provider: Mar 02, 2020 Time Seen by Provider: 09:15 Attending Physician Nayeli Tapia MD [place] [place] Consult Date of Admission Mar 01, 2020 at 17:54 Home Medications Home Medications Reviewed patient Home Medication Reconciliation performed by pharmacy medication reconciliations application support technician and/or nursing. Patients Allergies have been reviewed. Allergies Coded Allergies: No Known Drug Allergies (Unverified , 09/28/18) KMP-Itcjcl-Zazyca Hx Patient Social History Alcohol Use: Denies Use Recreational Drug Use: No Smoking Status: Never a Smoker Type Used: Cigars 2nd Hand Smoke Exposure: No Recent Foreign Travel: No Contact w/other who traveled: No Recent Hopitalizations: No Recent Infectious Disease Expo: No Immunizations Up To Date Tetanus Booster (TDap): Unknown Date of Pneumonia Vaccine: Aug 19, 2014 Date of Influenza Vaccine: Nov 02, 2017 Past Medical History Past Medical History 1. DM 2. Bipolar Disorder 3. Personality Disorder 4. Obesity 5. Occasional Tobacco use- cigars 6. COPD with ADELA, using CPAP 7. B- Cell small lymphocytic lymphoma (previously evaluated by Charlee 2008 who recommended cessation of medications and follow up) Now following with Dr. Lawton 8. Migraines with Aura (Dr. Daniels) 9. Possible seizure disorder (evaluated by Neurology with normal EEG) 10. Alcoholism- pt admits drinking at least 2-3 beers 3 days a week, however previously admitted to drinking daily 11. Impulse control disorder 12. Squamous cell carcinoma- sp resection 13. Basal cell carcinoma- sp resection 14. GERD with gastritis and duodenitis 15. HTN 16. HLP - has not filled his Lipitor since 01-06 17. ED 18. DDD 19: CAD Past Surgical History 1. Cardiac Cath 05-14-14 with PTCA to LAD using Promus 3.5x24mm stent, remaining 70% stenosis in OM, with small right. 2. Colonoscopy and EGD- [facility] 2009 3. Basal Cell carcinoma resected face 4. Squamous cell resected face 5. Left Carpal Tunnel 2000 6. Rt. knee arthroscopy 1993 and 2003 7. Cardiac Cath 06-24-14 by Justice demonstrating patent stent 8. Colonoscopy 2013 [place] Family Medical History Significant Family History: Cancer, Diabetes, Hypertension Family History: Alcoholism G8 BROTHER Arthritis 19 FATHER Cataracts 19 FATHER Completed stroke 19 MOTHER Deafness or hearing loss 19 FATHER Diabetes mellitus 19 MOTHER Headache disorder 19 FATHER 19 MOTHER G8 BROTHER G8 SISTER Hypercholesterolemia 19 FATHER Hypertension 19 FATHER Prostate cancer G8 BROTHER Psychosocial problem 19 MOTHER Respiratory disorder 19 FATHER 19 MOTHER Visual disorder 19 MOTHER No Family History of: AIDS Abdominal aortic aneurysm Krishna's disease Alzheimer's disease Aphasia Asthma Cancer of mouth Cardiovascular disease Colon cancer Congenital disease Congenital heart disease Coronary thrombosis Cystic fibrosis Dementia Drug abuse Dysphasia Fibrocystic disease of breast Gastroenteritis Glaucoma Infertility Kidney disease Myocardial infarction Neoplasm Not obtainable due to adoption Osteoporosis Parkinson's disease Seizure disorder Severe allergy Thyroid disease Tuberculosis Review of Systems ([facility]) Constitutional: No chills; dizziness; No fever EENTM: no symptoms reported, vision loss; No nose congestion Respiratory: no symptoms reported; No cough, No dyspnea on exertion, No short of breath Cardiovascular: chest pain, edema; No palpitations; syncope Gastrointestinal: No abdominal pain; loss of appetite, vomiting Genitourinary: no symptoms reported; No dysuria, No frequency, No hematuria Musculoskeletal: no symptoms reported; No back pain, No joint pain, No muscle pain Skin: no symptoms reported; No lesions, No rash Psychiatric/Neurological: Headache Reviewed Test Results Reviewed Test Results Lab Laboratory Tests Test 03/02/20 00:37 03/02/20 03:26 03/02/20 05:00 03/02/20 11:10 Range/Units Glucometer 343 H 285 H 154 H 70-110 MG/DL White Blood Count 5.3 4.3-11.0 10^3/uL Red Blood Count 4.63 4.35-5.85 10^6/uL Hemoglobin 13.0 L 13.3-17.7 G/DL Hematocrit 41 40-54 % Mean Corpuscular Volume 88 80-99 FL Mean Corpuscular Hemoglobin 28 25-34 PG Mean Corpuscular Hemoglobin Concent 32 32-36 G/DL Red Cell Distribution Width 14.4 10.0-14.5 % Platelet Count 253 130-400 10^3/uL Mean Platelet Volume 10.8 H 7.4-10.4 FL Neutrophils (%) (Auto) 62 42-75 % Lymphocytes (%) (Auto) 24 12-44 % Monocytes (%) (Auto) 11 0-12 % Eosinophils (%) (Auto) 3 0-10 % Basophils (%) (Auto) 1 0-10 % Neutrophils # (Auto) 3.2 1.8-7.8 X 10^3 Lymphocytes # (Auto) 1.3 1.0-4.0 X 10^3 Monocytes # (Auto) 0.6 0.0-1.0 X 10^3 Eosinophils # (Auto) 0.1 0.0-0.3 10^3/uL Basophils # (Auto) 0.0 0.0-0.1 10^3/uL Sodium Level 139 135-145 MMOL/L Potassium Level 3.8 3.6-5.0 MMOL/L Chloride Level 101 98-107 MMOL/L Carbon Dioxide Level 29 21-32 MMOL/L Anion Gap 9 5-14 MMOL/L Blood Urea Nitrogen 13 7-18 MG/DL Creatinine 0.86 0.60-1.30 MG/DL Estimat Glomerular Filtration Rate > 60 BUN/Creatinine Ratio 15 Glucose Level 246 H 70-105 MG/DL Calcium Level 8.3 L 8.5-10.1 MG/DL Corrected Calcium 8.9 8.5-10.1 MG/DL Total Bilirubin 0.3 0.1-1.0 MG/DL Aspartate Amino Transf (AST/SGOT) 15 5-34 U/L Alanine Aminotransferase (ALT/SGPT) 12 0-55 U/L Alkaline Phosphatase 87 40-136 U/L Total Protein 6.1 L 6.4-8.2 GM/DL Albumin 3.3 3.2-4.5 GM/DL Triglycerides Level 149 <150 MG/DL Cholesterol Level 194 < 200 MG/DL LDL Cholesterol Direct 148 H 1-129 MG/DL VLDL Cholesterol 30 5-40 MG/DL HDL Cholesterol 39 L 40-60 MG/DL Test 03/02/20 15:50 Range/Units Glucometer 134 H 70-110 MG/DL Physical Exam-(CHC) Physical Exam Vital Signs VS - Last 72 Hours, by Label 03/01/20 03/01/20 03/01/20 03/01/20 16:25 18:37 18:51 19:54 Temp 36.5 36.5 37.3 Pulse 90 90 71 Resp 18 18 20 B/P (MAP) 258/147 (184) 174/76 (184) 168/73 Pulse Ox 95 95 95 95 O2 Delivery Room Air Room Air Room Air Room Air 03/01/20 03/01/20 03/02/20 03/02/20 20:06 23:50 01:00 04:00 Temp 37.3 36.4 36.4 Pulse 71 76 71 60 Resp 20 20 20 B/P (MAP) 168/73 (104) 190/76 (114) 146/74 (98) Pulse Ox 95 93 96 O2 Delivery Room Air Room Air Nasal Cannula O2 Flow Rate 2.00 03/02/20 03/02/20 03/02/20 03/02/20 06:46 07:00 08:00 08:01 Temp 36.2 Pulse 63 53 Resp 18 B/P (MAP) 159/74 (102) Pulse Ox 92 95 O2 Delivery Nasal Cannula Room Air Nasal Cannula O2 Flow Rate 2.00 2.00 2.00 03/02/20 03/02/20 03/02/20 03/02/20 12:30 12:38 16:10 18:11 Temp 36.6 36.2 Pulse 63 62 57 Resp 20 20 B/P (MAP) 159/74 (102) 148/83 (104) Pulse Ox 90 93 92 O2 Delivery Room Air Nasal Cannula Nasal Cannula O2 Flow Rate 2.00 2.00 Capillary Refill : Less Than 3 Seconds General Appearance: WD/WN, no apparent distress HEENT: PERRL/EOMI Neck: full range of motion, supple Respiratory: chest non-tender, lungs clear, no respiratory distress, no accessory muscle use Cardiovascular: normal peripheral pulses, regular rate, rhythm, no murmur Gastrointestinal: normal bowel sounds, soft Back: no CVA tenderness, no vertebral tenderness Extremities: pedal edema (2+ pitting edema) Neurologic/Psychiatric: shipping processor II-XII nml as tested, alert, normal mood/affect, oriented x 3 Skin: normal color, warm/dry Lymphatic: no adenopathy Assessment/Plan Assessment/Plan Admission Status: Inpatient Order (span 2 midnights) Reason for Inpatient Admission: Patient requiring further cardiac workup (1) Pre-syncope Status: Acute Assessment & Plan: - Carotid US ordered today, showed severe stenosis on Left, Will discuss with cardiology if patient should be transferred for CEA due to being symptomatic after cath (2) Chest pain Status: Acute (3) CAD (coronary artery disease) Status: Chronic Assessment & Plan: - Cardiology consulted and plans for cath in the AM Qualifiers: Qualified Codes: I25.118 - Atherosclerotic heart disease of [place] coronary artery with other forms of angina pectoris (4) Nausea & vomiting Status: Acute Assessment & Plan: - CLD until Midnight, Zofran and Phenergen Qualifiers: Qualified Codes: R11.2 - Nausea with vomiting, unspecified (5) Carotid stenosis, left Status: Acute (6) HTN (hypertension) Status: Chronic Assessment & Plan: - Holding blood pressure meds due to vomiting Qualifiers: Qualified Codes: I10 - Essential (primary) hypertension (7) ADELA on CPAP Status: Chronic (8) Uncontrolled type 2 diabetes mellitus with hyperglycemia, with long-term current use of insulin Status: Acute Assessment & Plan: - q6hrs Accuchecks since patient will be NPO (9) BMI 50.0-59.9, adult Status: Chronic (10) Lymphoma in remission Status: Chronic (11) DVT prophylaxis Clinical Quality Measures AMI/AHF: ASA po Prior to arrival: No DVT/VTE Risk/Contraindication: Risk Factor Score Per Nursin RFS Level Per Nursing on Admit: 4+=Very High Copy Copies To 1: Marquita DAVIS HOLLY R MD Mar 02, 2020 20:15
[2020-03-02 20:52] VITALS: BP 124/73
[2020-03-02] MEDS ORDERED: LORazepam INJ 2 MG/ML (ATIVAN) VIAL IVP PRN (21:30)
[2020-03-02] MEDS ORDERED: MECLIZINE 25 MG (ANTIVERT) TAB PO PRN (21:30)
[2020-03-03 00:10] VITALS: BP 148/78
[2020-03-03 04:35] VITALS: BP 186/82
[2020-03-03 04:44] LABS: BASOPHILS % (AUTO) 0 % (0-10); EOSINOPHILS # (AUTO) 0.1 10^3/uL (0.0-0.3); EOSINOPHILS % (AUTO) 1 % (0-10); HEMATOCRIT 40 % (40-54); HEMOGLOBIN 13.2 G/DL (13.3-17.7); LYMPHOCYTES # (AUTO) 1.4 X 10^3 (1.0-4.0); LYMPHOCYTES % (AUTO) 24 % (12-44); MEAN CORPUSCULAR HEMOGLOBIN 29 PG (25-34); MEAN CORPUSCULAR HGB CONC 33 G/DL (32-36); MEAN CORPUSCULAR VOLUME 88 FL (80-99); MEAN PLATELET VOLUME 11.1 FL (7.4-10.4); MONOCYTES % (AUTO) 17 % (0-12); NEUTROPHILS # (AUTO) 3.1 X 10^3 (1.8-7.8); NEUTROPHILS % (AUTO) 57 % (42-75); PLATELET COUNT 252 10^3/uL (130-400); RED CELL DISTRIBUTION WIDTH 14.1 % (10.0-14.5); WHITE BLOOD COUNT 5.5 10^3/uL (4.3-11.0)
[2020-03-03 04:53] LABS: ALBUMIN 3.5 GM/DL (3.2-4.5); CHLORIDE 103 MMOL/L (98-107); POTASSIUM 3.2 MMOL/L (3.6-5.0); SODIUM 142 MMOL/L (135-145)
[2020-03-03 04:55] LABS: CALCIUM 8.5 MG/DL (8.5-10.1)
[2020-03-03 04:56] LABS: GLUCOSE 62 MG/DL (70-105); TOTAL PROTEIN 6.4 GM/DL (6.4-8.2)
[2020-03-03 04:57] LABS: CARBON DIOXIDE 29 MMOL/L (21-32)
[2020-03-03 04:58] LABS: BILIRUBIN,TOTAL 0.4 MG/DL (0.1-1.0)
[2020-03-03 04:59] LABS: ALKALINE PHOSPHATASE 85 U/L (40-136); CREATININE SERUM 0.76 MG/DL (0.60-1.30); GFR ESTIMATED > 60
[2020-03-03 05:00] LABS: BUN/CREATININE RATIO 17
[2020-03-03 05:02] LABS: ALANINE AMINOTRANSFERASE 14 U/L (0-55)
[2020-03-03] MEDS: ENOXAPARIN 60 MG/0.6 ML (LOVENOX) SYR SC SCH (05:41)
[2020-03-03] MEDS: CATHETER FLUSH 10 ML SYR IV SCH ×2 (05:41→11:43)
[2020-03-03] MEDS: inSUlin ASPART (NovoLOG) 1 UNIT/0.01 ML (CHARGE PER UNIT) SC SCH ×2 (05:42→10:03)
[2020-03-03] MEDS ORDERED: LIDOCAINE 1% INJ 20 ML 20 ML VIAL ONE (07:13)
[2020-03-03] MEDS ORDERED: HEParin (CATH LAB) 0 ML IV ONE (07:13)
[2020-03-03 08:28] VITALS: BP 133/90
[2020-03-03] MEDS ORDERED: D5W 1000 ML IV SOLUTION 1,000 ML IV SCH (09:30)
[2020-03-03] MEDS: ONDANSETRON 4 MG/2 ML (SDV) Z0FRAN IV PRN (09:34)
[2020-03-03] MEDS: PROMETHAZINE INJ 25 MG/ML (PHENERGAN) AMP IVP PRN (11:38)
[2020-03-03] MEDS: meTOproloL SUCCINATE 50 MG (TOPROL XL) TAB PO SCH (11:43)
[2020-03-03] MEDS: GABAPENTIN 600 MG (NEURONTIN) TAB PO SCH (11:43)
[2020-03-03] MEDS: ASPIRIN E.C. 81 MG (ECOTRIN) TAB PO SCH (11:43)
[2020-03-03] MEDS: cloNIDine 0.1 MG (CATAPRES) TAB PO SCH (11:43)
[2020-03-03 12:27] VITALS: BP 147/66
--- NOTE | 2020-03-03 13:12 | Diagnostic Imaging Report ---
PROCEDURE: CT head without contrast. TECHNIQUE: Multiple contiguous axial images were obtained through the brain without the use of intravenous contrast. Auto Exposure Controls were utilized during the CT exam to meet ALARA standards for radiation dose reduction. INDICATION: Dizziness. Nausea and vomiting. Left arm pain. COMPARISON: CT head on 10/20/2015. FINDINGS: No large acute territorial ischemia, mass, or hemorrhage. No midline shift or mass effect. The ventricles, cortical sulci, and basilar cisterns are patent and unremarkable. The calvarium is intact. The visualized paranasal sinuses are clear. IMPRESSION: No large acute territorial ischemia, mass, or hemorrhage. Dictated by: Dictated on workstation # [id number]
[2020-03-03 14:41] VITALS: BP 147/66
--- NOTE | 2020-03-03 14:47 | Progress Note - Cardiology ---
Cardiology SOAP Progress Note Subjective: Symptoms are mainly of dizziness and poor balance Very localized, left, upper chest discomfort is mild and w/o any aggravating or relieving factors and persistent continuously for many days No focal weakness Gen malaise and weakness Objective: I&O/Vital Signs 03/03/20 03/03/20 03/03/20 03/03/20 04:35 07:00 08:00 08:28 Temp 36.2 36.2 Pulse 66 62 61 Resp 18 16 B/P (MAP) 186/82 (116) 133/90 (104) Pulse Ox 92 96 O2 Delivery Nasal Cannula Room Air Nasal Cannula O2 Flow Rate 2.00 2.00 03/03/20 03/03/20 12:27 12:35 Temp 36.4 Pulse 65 73 Resp 18 B/P (MAP) 147/66 (93) Pulse Ox 93 O2 Delivery Nasal Cannula O2 Flow Rate 2.00 03/03/20 00:00 Intake Total 1760 ml Balance 1760 ml Weight (Pounds): 352 Weight (Ounces): 8.0 Weight (Calculated Kilograms): 159.570245 Constitutional: AAO x 3, well-developed, well-nourished, other (obese) Respiratory: No accessory muscle use; other (good bilat air entry; somewhat diminished at the bases) Cardiovascular: regular rate-rhythm, S1 and S2, systolic murmur (soft LILLIE at card basee) Gastrointestional: No tender; soft; No guarding, No rebound; audible bowel sounds Extremities: other (mild to mod, chronic, pitting and non-pitting edema); No clubbing, No cyanosis Neurologic/Psychiatric: oriented x 3, other (moves all limbs equally) Skin: No rash on exposed areas, No ulcerations on exposed areas Results/Procedures: Labs Laboratory Tests 03/02/20 15:50: Glucometer 134H 03/02/20 20:29: Glucometer 198H 03/03/20 04:30: White Blood Count 5.5, Red Blood Count 4.55, Hemoglobin 13.2L, Hematocrit 40, Mean Corpuscular Volume 88, Mean Corpuscular Hemoglobin 29, Mean Corpuscular Hemoglobin Concent 33, Red Cell Distribution Width 14.1, Platelet Count 252, Mean Platelet Volume 11.1H, Neutrophils (%) (Auto) 57, Lymphocytes (%) (Auto) 24, Monocytes (%) (Auto) 17H, Eosinophils (%) (Auto) 1, Basophils (%) (Auto) 0, Neutrophils # (Auto) 3.1, Lymphocytes # (Auto) 1.4, Monocytes # (Auto) 1.0, Eosinophils # (Auto) 0.1, Basophils # (Auto) 0.0, Sodium Level 142, Potassium Level 3.2L, Chloride Level 103, Carbon Dioxide Level 29, Anion Gap 10, Blood Ure a Nitrogen 13, Creatinine 0.76, Estimat Glomerular Filtration Rate > 60, BUN/Creatinine Ratio 17, Glucose Level 62L, Calcium Level 8.5, Corrected Calcium 8.9, Total Bilirubin 0.4, Aspartate Amino Transf (AST/SGOT) 19, Alanine Aminotransferase (ALT/SGPT) 14, Alkaline Phosphatase 85, Total Protein 6.4, Albumin 3.5 03/03/20 09:15: Glucometer 65L 03/03/20 14:02: Glucometer 126H Laboratory Tests 03/01/20 16:50 03/02/20 05:00 03/03/20 04:30 A/P: Assessment: >90% L ICA stenosis that likely accounts for his symptoms of poor balance Nonspecific chest discomfort and minimal troponin elevation Echo of Sep 2017LVEF 60-65%. Wall thickness is mod increased. LVEF 60-65%. LA is mod dilated Exertional shortness of breath, chronic CAD - s/p Promus element 3.5 x 24 mm stent to the proximal LAD on 05-14-2014. Last card cath of 10/20/15 showed mild to mod CAD, patent LAD stent, LVEF 50%, normal LVEDP, no significant MR MPI of Jul 24, 2018 is indicative of a small to mod sized apical infarction. Apical hypokinesis. Mod cardiomegaly. LVEF 55% Abnormal ECG: ECG of 08/22/16 shows sinus rhythm with freq PACs, left axis dev, clockwise rotation of the heart, cannot exclude old ant MS Holter of 09/02/16 showed NSR with occ PACs and PVCs, no SVT or VT, no significant miguel Monoclonal B-cell lymphocytosis and lymphoma and h/o CML , followed by Dr Norton HTN HLP - statin therapy DM II, not well controlled Obesity with BMI of approx 56 H/o ac renal failure d/t rhabdomyolysis of undetermined etiology in the early according to the patient H/O bi-polar disorder COPD Sleep apnea, treated with CPAP Intolerance to KRISTI secondary to cough Carotid u/s from July 2017 showed minimal bilat plaque without evidence of hemodynamic signif Chronic, bilateral leg swelling and intermittent venous ulcers (managed by [facility]) No significant obstructive PAD on seg pressures of 09/06/19 Plan: * Based on recent carotid w/u that showed severe carotid stenosis and his sym ptoms mainly consisting of poor balance, it appears that the most significant issue is symptomatic carotid disease. Chest discomfort is nonspecific and appears noncardiac (going by his description). We recommend transfer to a tertiary care center where carotid art disease can be addressed. If further cardiac w/u is needed, it can be done there * I discussed his case with Dr Tapia on the phone this morning * Continue ASA and bb * DVT prophylaxis * Replenish K. Monitor labs Clinical Quality Measures AMI/AHF: ASA po Prior to arrival: ESPERANZA Warren MD FACP FAC CCDS Mar 03, 2020 14:47
[2020-03-03] MEDS ORDERED: KCL 20 MEQ TAB (K-DUR) PO ONE (15:00)
--- NOTE | 2020-03-03 22:47 | Discharge Summary ---
Diagnosis/Chief Complaint Date of Admission Mar 01, 2020 at 17:54 Date of Discharge Mar 03, 2020 at 14:43 Admission Diagnosis Admission Diagnosis See problem list Discharge Diagnosis See Below Problems/Diagnosis: (1) Pre-syncope Assessment & Plan: - Carotid US ordered today, showed severe stenosis on Left, Will discuss with cardiology if patient should be transferred for CEA due to being symptomatic after cath 03/03: Carotid US showed near complete occlusion, discussed case with Dr Rendon and due to patient symptoms would recommend holding off on cath and transfer to facility with Vascular surgery and neurology given severity of symptoms, STAT CT head ordered with normal read Status: Acute (2) Chest pain Status: Acute (3) CAD (coronary artery disease) Assessment & Plan: - Cardiology consulted and plans for cath in the AM Qualifiers: Qualified Codes: I25.118 - Atherosclerotic heart disease of [place] coronary artery with other forms of angina pectoris Status: Chronic (4) Nausea & vomiting Assessment & Plan: - CLD until Midnight, Zofran and Phenergen 03/03: Continues to have severe symptoms and not able to move in bed without worsening symptoms, transfer to neurology service Qualifiers: Qualified Codes: R11.2 - Nausea with vomiting, unspecified Status: Acute (5) Carotid stenosis, left Status: Acute (6) HTN (hypertension) Assessment & Plan: - Holding blood pressure meds due to vomiting Qualifiers: Qualified Codes: I10 - Essential (primary) hypertension Status: Chronic (7) ADELA on CPAP Status: Chronic (8) Uncontrolled type 2 diabetes mellitus with hyperglycemia, with long-term current use of insulin Assessment & Plan: - q6hrs Accuchecks since patient will be NPO Status: Acute (9) BMI 50.0-59.9, adult Status: Chronic (10) Lymphoma in remission Status: Chronic (11) DVT prophylaxis Chief Complaint/HPI Chief Complaint/HPI 55 yo M that presented with left chest and arm pain. Patient that states that it started 2 days ago but got worse about 2 hrs prior to presenting to ER. States that he has been dizzy and feeling like he is going to pass out for the last 3 months but on monday it got worse and he started vomiting any time he would change position. Currently is nauseous and feeling like he is going to vomit. States that his chest pain has improved since admission. Discharge Summary-Simple/Stand Consultations Dr Rendon: Cardiology Discharge Physical Examination Allergies: Coded Allergies: No Known Drug Allergies (Unverified , 09/28/18) Vitals & I&Os Vital Sign - Last 12Hours Date Time Temp Pulse Resp B/P (MAP) Pulse Ox O2 Delivery O2 Flow Rate FiO2 03/03/20 14:41 36.4 73 18 147/66 93 Nasal Cannula 2.00 Intake and Output 03/03/20 00:00 Intake Total 1760 ml Balance 1760 ml General Appearance: Alert, Oriented X3, Cooperative, Moderate Distress (with any movements give severly dizzy) HEENT: PERRLA, EOMI, Mucous Memb Moist/[place] Respiratory: Clear to Auscultation, Normal Air Movement Cardiovascular: Regular Rate, No Murmurs Abdominal: Normal Bowel Sounds, Soft, No Tenderness, No Masses Extremities: No Edema, No Tenderness/Swelling Skin: No Rashes, No Breakdown Neuro: Strength at 5/5 X4 Ext, Sensation Intact, Cranial Nerves 3-12 NL Hospital Course Was the Problem List Reviewed?: Yes See final discharge diagnosis. Discussion & Recommendations 55 yo M that presented with dizziness and left arm heaviness. Patient continued to have severe nausea and vomiting with any movement. Carotid dopplers showed near complete occlusion of the left internal carotid artery. CT head normal. Plan to transfer to [facility] for neurology and vascular surgery services. Discharge Condition at discharge transferred to [facility] Instructions to patient/family Please see electronic discharge instructions given to patient. Discharge Medications Reviewed and agree with Discharge Medication list on patient's Discharge Instruction sheet Clinical Quality Measures AMI/AHF: ASA po Prior to arrival: No DVT/VTE Risk/Contraindication: Risk Factor Score Per Nursin RFS Level Per Nursing on Admit: 4+=Very High BARAK TRIPLETT MD Mar 03, 2020 22:47
--- NOTE | 2020-03-06 11:06 | Physician Query Clarification ---
PQ-Further Specificity Admission/Discharge Admission Date: Mar 01, 2020 at 17:54 Discharge Date: Mar 03, 2020 at 14:43 The medical record reflects the following clinical scenario: History/Risk Factors: CAD, HTN, Diabetes w/hyperglycemia, Obesity BMI 51.8 Clinical Findings: Troponin 0.076, chest pain Treatment: IV Lopressor, Baby asprin, Nitroglycerin, Catapress, Toprol Question: Can you further specify the etiology of the elevated troponin per the clinical indicators above? Please document a response in the Progress Notes or Discharge Summary. 1. Type 2 ID 2. Elevated tropon undetermined etiology 3. Other, with explanation of the clinical findings. 4. Clinically undetermined, no explanation for the clinical findings. PHYSICIAN RESPONSE Can you specify per above: Clinically undetermined (needed further work up, but for transferred because of severe carotid arterial disease) Please remember a lack of response to the above will prompt a phone page by CDI/Coding staff. In responding to this query, please exercise your independent professional judgment. The purpose of this communication is to more accurately reflect the complexity of your patients condition. The fact that a question is asked does not imply that any particular answer is desired or expected. Thank you for your timely response to this clarification. Requestors name: Morgan THIS PHYSICIAN QUERY FORM IS A PERMANENT PART OF THE MEDICAL RECORD MORGAN SALCEDO Mar 06, 2020 11:06 ESPERANZA STANFORD MD FAC FAC CCDS Mar 09, 2020 11:06
== END 2020-03-03 14:43 | disposition short-term general hospital (02) | DRG 68 ==
LOC: EDUNIT# 16:25 → ER 16:26 → 4TH 17:54
PROVIDERS: ADMIT Internal Medicine; ATTEND Family Medicine
DX: I65.22 Occlusion and stenosis of left carotid artery (principal); I25.10 Atherosclerotic heart disease of native coronary artery without angina pectoris; I10 Essential (primary) hypertension; E11.65 Type 2 diabetes mellitus with hyperglycemia; E66.9 Obesity, unspecified; Z68.43 Body mass index [BMI] 50.0-59.9, adult; R78.89 Finding of other specified substances, not normally found in blood; G47.33 Obstructive sleep apnea (adult) (pediatric); J45.909 Unspecified asthma, uncomplicated; E78.5 Hyperlipidemia, unspecified; G40.909 Epilepsy, unspecified, not intractable, without status epilepticus; K21.9 Gastro-esophageal reflux disease without esophagitis; M19.91 Primary osteoarthritis, unspecified site; M54.9 Dorsalgia, unspecified; F41.9 Anxiety disorder, unspecified; F31.9 Bipolar disorder, unspecified; I49.1 Atrial premature depolarization; I49.3 Ventricular premature depolarization; F60.9 Personality disorder, unspecified; I25.2 Old myocardial infarction; Z85.72 Personal history of non-Hodgkin lymphomas; Z87.01 Personal history of pneumonia (recurrent); Z95.5 Presence of coronary angioplasty implant and graft; Z79.4 Long term (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; Z72.0 Tobacco use
CPT/HCPCS: 36415; 70450; 71045; 80053; 80061; 82962; 83735; 83874; 83880; 84484; 85025; 85379; 85610; 85730; 87081; 93005; 93041; 93880; 94760; 96361; 96374; 96375

== ENCOUNTER → 2020-04-03 | Outpatient (CLI) | payer MEDICARE ==
[~2020-04-03] MED LIST changes: +ATOR40TA70 PO; +DICL100G31 TOP; +FLUO20CA46 PO; +GABA300C PO; +IBRU420T PO; +LOPE-175 PO; +METO10TA7 PO; +MIRT15TA6 PO; +ONDA8TAB13 PO; +TRAZ-227 PO
--- NOTE | 2020-04-03 10:57 | Diagnostic Imaging Report ---
INDICATION: Dysphagia. The procedure was performed in conjunction with speech pathology. Video fluoroscopy was performed during the swallowing of barium in multiple consistencies. A total of 1 minute and 7 seconds of fluoroscopy time was utilized. The patient ingested thin liquid with a spoon and through a straw as well as applesauce, banana, ground meat and cracker consistencies. There was early spillover with thin liquids through a straw. No laryngeal penetration or aspiration was observed. There is mild vallecular residue noted with multiple consistencies. IMPRESSION: 1. Mild early spillover and mild vallecular residue. No penetration or aspiration was observed. Dictated by: Dictated on workstation # [id number]
== END ==
LOC: RAD 09:33
PROVIDERS: ATTEND Nurse Practitioner Community Health
DX: R13.10 Dysphagia, unspecified (principal)
CPT/HCPCS: 74230

== ENCOUNTER 2020-04-11 10:22 | Emergency (ER) | payer MEDICARE ==
[~2020-04-11] VITALS: Ht 170 cm; Wt 154.0 kg
[2020-04-11 10:54] LABS: ABG BASE EXCESS 13.5 MMOL/L (-2.5-2.5); ABG OXYGEN SATURATION 95 % (94-100); ABG PCO2 54 MMHG (35-45); ABG PH 7.46 (7.37-7.43); ABG PO2 70 MMHG (79-93); ABG TCO2 40.4 MMOL/L (21.0-31.0)
[2020-04-11 10:55] LABS: ALLENS TEST YES-POS; INSPIRED O2 2 L
[2020-04-11 10:56] LABS: PATIENT TEMP 97.3; VENTILATOR NO
--- NOTE | 2020-04-11 10:58 | ED Respiratory ---
General Chief Complaint: Respiratory Problems Stated Complaint: SOA Source: patient Exam Limitations: no limitations History of Present Illness Date Seen by Provider: Apr 11, 2020 Time Seen by Provider: 10:20 Initial Comments Patient presents to ER by private conveyance from home with his and chief complaint that he was told to come here by his primary care Dr. Marquita Washburn at [facility]. She's had shortness of breath and weakness for the past wee k. No chest pain cough fever chills nausea vomiting diarrhea. Been worked up outpatient and she said he had a pneumonia on chest x-ray. She is concerned he might have a blood clot. He does not know what medications he takes but he does not believe is on a blood thinner. He does have coronary disease and recently got a stent in his heart at [facility] couple weeks ago as well as a and his carotid artery. He has a history of strokes, diabetes, morbid obesity, oxygen dependent on 2 L. Couple days ago his home health nurse said his oxygen sats were in the 60-70% range on his 2-4 L. His primary care doctor ordered an x-ray but he says no labs. The PCP reviewed the x-ray today and told him to come to the ER. He is not on antibiotics. His reveals that they got home on March 06 from [facility] after he had a stroke and had a stent to his carotid artery as well as coronary stent placed. He had a CT angiogram March 03 showing bovine aortic arch, venous congestion and right greater than left pulmonary edema. Pulmonary hypertension and an ascending aorta measuring 42 x 41 mm. He had left mid ICA 95% stenosis in the right ICA with 40% stenosis in the 40s was appearance. He follows with an oncologist locally for his chronic lymphocytic leukemia. He's had chronic diarrhea for the past 2 years. He uses CPAP at night for obstructive sleep apnea. She does not feel like his weakness and shortness of breath has Many worse over the past month he just has never gotten better. They've been doing outpatient home health, physical therapy, occupational therapy and she doesn't feel he is improved. Allergies and Home Medications Allergies Coded Allergies: No Known Drug Allergies (Unverified , 09/28/18) Home Medications Albuterol Sulfate 18 Gm Hfa.aer.ad, 2 PUFF INH Q4H PRN for SHORTNESS OF BREATH, (Reported) Albuterol Sulfate 1.25 Mg/3 Ml Vial.neb, 1.25 MG NEB TID PRN for SHORTNESS OF BREATH, (Reported) Allopurinol 300 Mg Tablet, 300 MG PO DAILY, (Reported) Aspirin 81 Mg Tablet.dr, 81 MG PO DAILY, (Reported) Atorvastatin Calcium 40 Mg Tablet, 40 MG PO HS, (Reported) Clonidine HCl 0.1 Mg Tablet, 0.1 MG PO BID, (Reported) Diazepam 5 Mg Tablet, 5 MG PO BID PRN for ANXIETY, (Reported) Diclofenac Sodium 100 Gm Gel..gram., 4 GM TOP Q4H PRN for JOINT PAIN, (Reported) APPLY TO KNEE AND HIP Diclofenac Sodium 100 Gm Gel..gram., 1 APPLIC TOP PRN PRN for PAIN-BREAKTHROUGH, (Reported) APPLY TO KNEES Esomeprazole Magnesium 40 Mg Capsule.dr, 40 MG PO DAILY, (Reported) Fluoxetine HCl 20 Mg Capsule, 20 MG PO DAILY, (Reported) Fluticasone Propionate 16 Gm [place].susp, 1 SPRAY NS HS, (Reported) Furosemide 20 Mg Tablet, 60 MG PO DAILY, (Reported) TAKES 3 (20MG) TABLETS Gabapentin 300 Mg Capsule, 600 MG PO TID, (Reported) TAKES 2 (300MG) CAPS Ibrutinib 420 Mg Tablet, 420 MG PO DAILY, (Reported) Insulin Aspart 300 Units/3 Ml Solution, 5-20 UNITS SC AC, (Reported) Insulin Glargine,Hum.rec.anlog 100 Unit/1 Ml Vial, 100 UNITS SC BID, (Reported) Liraglutide 0.6 Mg/0.1 Ml Pen.injctr, 1.8 MG INJ DAILY, (Reported) Loperamide HCl 2 Mg Capsule, 2-4 MG PO BID PRN for DIARRHEA, (Reported) Metolazone 10 Mg Tablet, 10 MG PO DAILY PRN for FLUID RETENTION, (Reported) Metoprolol Succinate 100 Mg Tab.er.24h, 150 MG PO DAILY, (Reported) TAKES 1 & TABS (100MG) Mirtazapine 15 Mg Tablet, 15 MG PO HS, (Reported) Naproxen 500 Mg Tablet, 500 MG PO BID PRN for PAIN-MILD, (Reported) Nortriptyline HCl 25 Mg Capsule, 25 MG PO BID, (Reported) Ondansetron 8 Mg Tab.rapdis, 8 MG PO QID PRN for NAUSEA/VOMITING-1ST LINE, (Reported) Oxycodone HCl/Acetaminophen 1 Each Tablet, 1 EA PO Q6H PRN for PAIN-MODERATE (5- 7), (Reported) Potassium Chloride 20 Meq Tablet.er, 20 MEQ PO DAILY, (Reported) Tamsulosin HCl 0.4 Mg Cap, 0.4 MG PO DAILY, (Reported) Trazodone HCl 100 Mg Tablet, 100-200 MG PO HS, (Reported) Umeclidinium [place] 62.5 Mcg Blst.w.dev, 1 PUFF INH DAILY, (Reported) Patient Home Medication List Home Medication List Reviewed: Yes Review of Systems Review of Systems Constitutional: No chills, No diaphoresis EENTM: No ear pain, No eye pain Respiratory: No cough; dyspnea on exertion; No phlegm; short of breath; No wheezing Cardiovascular: No chest pain; Hx of Intervention; No palpitations; vascular heart diseas Gastrointestinal: No abdominal pain, No constipation; diarrhea; No nausea, No vomiting Genitourinary: No discharge, No dysuria Musculoskeletal: No back pain, No joint pain Skin: No pruritus, No rash Psychiatric/Neurological: Denies Headache, Denies Numbness, Denies Paresthesia All Other Systems Reviewed Negative Unless Noted: Yes Past Vkbefaq-Wfsvtx-Kscqtm Hx Patient Social History Alcohol Use: Denies Use Recreational Drug Use: No Smoking Status: Former Smoker Type Used: Cigars Former Smoker, Quit: Sep 25, 2014 2nd Hand Smoke Exposure: No Recent Hopitalizations: No Immunizations Up To Date Tetanus Booster (TDap): Unknown PED Vaccines UTD: No Date of Pneumonia Vaccine: Aug 19, 2014 Date of Influenza Vaccine: Nov 02, 2017 Seasonal Allergies Seasonal Allergies: Yes Past Medical History Surgeries: Yes Coronary Stent, Orthopedic Respiratory: Yes Asthma, Pneumonia, Sleep Apnea Currently Using CPAP: Yes Currently Using BIPAP: No Cardiac: Yes (HEART CATHS X2/STENTS, SC AND LAST CATH/STENTS 04/2014) Coronary Artery Disease, Heart Attack, High Cholesterol, Hypertension Neurological: Yes Seizure Disorder Reproductive Disorders: No Sexually Transmitted Disease: No HIV/AIDS: No Genitourinary: Yes Renal Failure, UTI-Chronic Gastrointestinal: Yes Gastroesophageal Reflux Musculoskeletal: Yes Arthritis, Chronic Back Pain Endocrine: Yes (obesity) Diabetes, Insulin dep HEENT: No Hearing Impairment: Hard of Hearing Cancer: Yes (B-cell lymphoma) Leukemia, Skin, Lymphoma Did You Recieve Any Treatments: Yes What Type of Treatment Did You: Chemotherapy, Surgical Intervention Psychosocial: Yes Anxiety, Bipolar Integumentary: No Blood Disorders: No Adverse Reaction/Blood Tranf: No Family Medical History Alcoholism G8 BROTHER Arthritis 19 FATHER Cataracts 19 FATHER Completed stroke 19 MOTHER Deafness or hearing loss 19 FATHER Diabetes mellitus 19 MOTHER Headache disorder 19 FATHER 19 MOTHER G8 BROTHER G8 SISTER Hypercholesterolemia 19 FATHER Hypertension 19 FATHER Prostate cancer G8 BROTHER Psychosocial problem 19 MOTHER Respiratory disorder 19 FATHER 19 MOTHER Visual disorder 19 MOTHER No Family History of: AIDS Abdominal aortic aneurysm [place]'s disease Alzheimer's disease Aphasia Asthma Cancer of mouth Cardiovascular disease Colon cancer Congenital disease Congenital heart disease Coronary thrombosis Cystic fibrosis Dementia Drug abuse Dysphasia Fibrocystic disease of breast Gastroenteritis Glaucoma Infertility Kidney disease Myocardial infarction Neoplasm Not obtainable due to adoption Osteoporosis Parkinson's disease Seizure disorder Severe allergy Thyroid disease Tuberculosis Cancer, Diabetes, Hypertension Physical Exam Vital Signs - First Documented 04/11/20 10:25 Temp 36.2 Pulse 64 Resp 12 B/P (MAP) 203/111 (141) Pulse Ox 98 O2 Delivery Nasal Cannula O2 Flow Rate 2.00 Capillary Refill : Height: 5'7.00" Weight: 352lbs. 8.0oz. [id number]; 52.29 BMI Method:Stated General Appearance: mild distress, obese Eyes: Bilateral Eye Normal Inspection, Bilateral Eye PERRL, Bilateral Eye EOMI HEENT: PERRL/EOMI, normal ENT inspection, pharynx normal Neck: full range of motion, supple, normal inspection Respiratory: lungs clear, no accessory muscle use, respiratory distress (mild), decreased breath sounds Cardiovascular: normal peripheral pulses, regular rate, rhythm Gastrointestinal: normal bowel sounds, non tender, soft Extremities: normal range of motion, non-tender, normal capillary refill Neurologic/Psychiatric: alert, normal mood/affect, oriented x 3, other Skin: normal color, warm/dry Progress/Results/Core Measures Suspected Sepsis SIRS Temperature: Pulse: Respiratory Rate: Laboratory Tests 04/11/20 10:50: White Blood Count 12.9H Blood Pressure / Mean: Laboratory Tests 04/11/20 10:50: Creatinine 1.07, Platelet Count 294, Total Bilirubin 0.5 Results/Orders Lab Results Laboratory Tests Test 04/11/20 10:30 04/11/20 10:50 Range/Units Blood Gas Puncture Site RT RAD Blood Gas Patient Temperature 97.3 Arterial Blood pH 7.46 H 7.37-7.43 Arterial Blood Partial Pressure CO2 54 H 35-45 MMHG Arterial Blood Partial Pressure O2 70 L 79-93 MMHG Arterial Blood HCO3 39 H 23-27 MMOL/L Arterial Blood Total CO2 40.4 H 21.0-31.0 MMOL/L Arterial Blood Oxygen Saturation 95 94-100 % Arterial Blood Base Excess 13.5 H -2.5-2.5 MMOL/L Isai Test YES-POS Blood Gas Ventilator Setting NO Blood Gas Inspired Oxygen 2 L White Blood Count 12.9 H 4.3-11.0 10^3/uL Red Blood Count 4.07 L 4.35-5.85 10^6/uL Hemoglobin 11.5 L 13.3-17.7 G/DL Hematocrit 36 L 40-54 % Mean Corpuscular Volume 88 80-99 FL Mean Corpuscular Hemoglobin 28 25-34 PG Mean Corpuscular Hemoglobin Concent 32 32-36 G/DL Red Cell Distribution Width 14.1 10.0-14.5 % Platelet Count 294 130-400 10^3/uL Mean Platelet Volume 10.6 H 7.4-10.4 FL Neutrophils (%) (Auto) 79 H 42-75 % Lymphocytes (%) (Auto) 10 L 12-44 % Monocytes (%) (Auto) 7 0-12 % Eosinophils (%) (Auto) 3 0-10 % Basophils (%) (Auto) 0 0-10 % Neutrophils # (Auto) 10.2 H 1.8-7.8 X 10^3 Lymphocytes # (Auto) 1.3 1.0-4.0 X 10^3 Monocytes # (Auto) 0.9 0.0-1.0 X 10^3 Eosinophils # (Auto) 0.4 H 0.0-0.3 10^3/uL Basophils # (Auto) 0.1 0.0-0.1 10^3/uL Erythrocyte Sedimentation Rate 25 0-30 MM/HR D-Dimer 2.49 H 0.00-0.49 UG/ML Sodium Level 139 135-145 MMOL/L Potassium Level 3.2 L 3.6-5.0 MMOL/L Chloride Level 92 L 98-107 MMOL/L Carbon Dioxide Level 33 H 21-32 MMOL/L Anion Gap 14 5-14 MMOL/L Blood Urea Nitrogen 15 7-18 MG/DL Creatinine 1.07 0.60-1.30 MG/DL Estimat Glomerular Filtration Rate > 60 BUN/Creatinine Ratio 14 Glucose Level 299 H 70-105 MG/DL Calcium Level 8.7 8.5-10.1 MG/DL Corrected Calcium 9.0 8.5-10.1 MG/DL Total Bilirubin 0.5 0.1-1.0 MG/DL Aspartate Amino Transf (AST/SGOT) 12 5-34 U/L Alanine Aminotransferase (ALT/SGPT) 9 0-55 U/L Alkaline Phosphatase 74 40-136 U/L Troponin I < 0.028 <0.028 NG/ML C-Reactive Protein High Sensitivity 2.06 H 0.00-0.50 MG/DL B-Type Natriuretic Peptide 147.4 H <100.0 PG/ML Total Protein 6.7 6.4-8.2 GM/DL Albumin 3.6 3.2-4.5 GM/DL Procalcitonin 0.03 <0.10 NG/ML My Orders Orders - VIRGILIO ROSAS Cbc With Automated Diff (04/11/20 10:44) Comprehensive Metabolic Panel (04/11/20 10:44) Fibrin Degradation Products (04/11/20 10:44) Procalcitonin (Pct) (04/11/20 10:44) Hs C Reactive Protein (04/11/20 10:44) Erythrocyte Sedimentation Rate (04/11/20 10:44) Blood Culture (04/11/20 10:44) Sputum Culture (04/11/20 10:44) Ekg Tracing (04/11/20 10:44) Chest 1 View, Ap/Pa Only (04/11/20 10:44) Coronavirus Sars-Cov-2 So 2018 (04/11/20 10:44) O2 (04/11/20 10:44) Troponin I (04/11/20 10:44) BNP (04/11/20 10:44) Ua Culture If Indicated (04/11/20 10:44) Arterial Blood Gas (04/11/20 10:48) Hydralazine Injection (Apresoline Inject (04/11/20 11:00) Ct Angio Chest W (04/11/20 11:56) Iohexol Injection (Omnipaque 350 Mg/Ml 1 (04/11/20 12:30) Received Contrast (Hold Metformin- Contr (04/11/20 12:30) Ns (Ivpb) (Sodium Chloride 0.9% Ivpb Bag (04/11/20 12:30) Sodium Chloride Flush (Catheter Flush Sy (04/11/20 12:30) Clonidine Tablet (Catapres Tablet) (04/11/20 12:30) Medications Given in ED Current Medications Medications Dose Ordered Sig/Mikey Route Start Time Stop Time Status Last Admin Dose Admin Clonidine HCl 0.1 mg ONCE ONCE PO 04/11/20 12:30 04/11/20 12:31 DC 04/11/20 12:31 0.1 MG Hydralazine HCl 10 mg ONCE ONCE IV 04/11/20 11:00 04/11/20 11:01 DC 04/11/20 11:04 10 MG Iohexol 100 ml ONCE ONCE IV 04/11/20 12:30 04/11/20 12:31 DC 04/11/20 12:51 88 ML Sodium Chloride 10 ml NEEDED PRN IV 04/11/20 12:30 04/11/20 12:51 10 ML Sodium Chloride 100 ml ONCE ONCE IV 04/11/20 12:30 04/11/20 12:31 DC 04/11/20 12:51 80 ML Vital Signs/I&O 04/11/20 10:25 Temp 36.2 Pulse 64 Resp 12 B/P (MAP) 203/111 (141) Pulse Ox 98 O2 Delivery Nasal Cannula O2 Flow Rate 2.00 Capillary Refill : Progress Note #1: Time: 11:23 Progress Note Discussed the case seems that he has physical ability to has not improved on outpatient home health. He has a new infiltrate on outside chest x-ray and they're concerned that he may have developed a blood clot. We'll get a d-dimer to see we can rule this out as well as consider a CT angiogram. EKG does not show anything new. We'll obtain some labs and cultures. Because we suspect COVID-19 could also contribute to his poor respiratory health we have swabbed him. Presently he is not in any acute distress while on his home oxygen of 2 L and resting in bed. He was able to walk up to the hospital and transfer between the wheelchair and bed without significant distress. I would anticipate admission at least for pneumonia if not pulmonary embolism. We have discussed with his doing inpatient physical rehabilitation if he could tolerate it and she thinks this might be a good idea. Progress Note #2: Time: 13:37 Progress Note Review the chest x-ray which seems to show improvement compared to previous chest x-rays. CT does not show any pneumonia or pulmonary edema. Pleural effusions are stable. Patient's on his baseline 2-3 L/m and satting 97-100%. He is not having any dyspnea. His blood pressure was significantly elevated so we gave him hydralazine 10 mg IV which did nothing. We gave him clonidine 0.1 mg of it has not made a big change yet. This is been going on for some time and we will increase his clonidine to 0.2 mg twice a day and have him follow-up with primary care. I do not give him more beta blockers at this time as his heart rate is already in the upper 50s to low 60s. He is in no acute distress and says she was not short of breath throughout the stay. The patient has had no material deterioration during his hospital stay. At this time he does not merit any inpatient hospitalization however he may benefit from inpatient physical therapy. We would not really get him in until Monday so we are going to encourage him to speak with his primary care provider on Monday if he would like to go that route. We will communicate this with his as well. Discussed the case with the and she says they've been dealing with his high blood pressure for the past several weeks. 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 ECG Initial ECG Impression Date: Apr 11, 2020 Initial ECG Impression Time: 10:32 Initial ECG Rate: 64 Initial ECG Rhythm: Normal Sinus Initial ECG Intervals: PA (242 ms) Initial ECG Impression: Normal, Nonspecific Changes Initial ECG Comparisson: Unchanged Comment Sinus rhythm without clinically relevant ST changes. Prolonged PA interval. Borderline QTC prolongation. Diagnostic Imaging Diagonstic Imaging: Xray Plain Films/CT/US/NM/MRI: chest (1v) Comments NAME: [facility] REC#: [id number] PT STATUS: REG ER : 1965 PHYSICIAN: VIRGILIO ROSAS MD ADMIT DATE: 04/11/20/ER Draft Date of Exam:04/11/20 CHEST 1 VIEW, AP/PA ONLY CHEST 1 VIEW, AP/PA ONLY Indication: Respiratory difficulty Comparison: 03/01/2020 Findings: Unchanged enlargement of cardiac silhouette. Left basilar hazy opacities persist and favor summation shadow from marked cardiomegaly and prominent mediastinal fat. No pneumothorax or pleural effusion. Impression: 1. Improved but persistent hazy opacities in left lung base are felt to represent a combination of cardiomegaly and atelectasis. Underlying pneumonia could be present in the appropriate setting. Dictated on workstation # [id number] Dict: 04/11/20 1131 Trans: 04/11/20 1134 CVB [id number] Interpreted by: LAYO NORRIS MD Electronically signed by: Reviewed: Reviewed by Me Diagonstic Imaging: CT (angio) Plain Films/CT/US/NM/MRI: chest Comments NAME: [facility] REC#: [id number] PT STATUS: REG ER : 1965 PHYSICIAN: VIRGILIO ROSAS MD ADMIT DATE: 04/11/20/ER Draft Date of Exam:04/11/20 CT ANGIO CHEST W PROCEDURE: CT angiography Chest TECHNIQUE: After intravenous administration of contrast, thin section axial CT angiography of the chest was performed. 3D MIP reconstructions were made. All CT scans use one or more of the following dose optimizing techniques: automated exposure control, MA and/or KvP adjustment based on a patient size and exam type, or iterative reconstruction. INDICATION: Shortness of air COMPARISON: CT chest of 07/02/2019 FINDINGS: Vasculature: No pulmonary emboli. Dilated pulmonary trunk is unchanged and likely due to chronic pulmonary hypertension. No features of right ventricular strain. Thoracic aorta is normal in caliber. No aortic dissection or pseudoaneurysm. Heart and mediastinum: Visualized thyroid is normal. Scattered subcentimeter mediastinal lymph nodes are unchanged. The largest lymph node has a benign fatty hilum present in the right lower paratracheal region that is unchanged as well. Unchanged cardiomegaly without pericardial effusion. Pleura: Small bilateral pleural effusions. No pneumothorax. Lungs and airway: No endoluminal lesion in the trachea or central bronchi. Left basilar linear subsegmental atelectasis/scar. No consolidation or mass. Upper abdomen: Allowing for the phase of contrast, no acute abnormality in the upper abdomen is seen. Musculoskeletal: No concerning osseous lesion. IMPRESSION: 1. No pulmonary emboli. 2. Chronic dilation of the pulmonary trunk may represent long-standing pulmonary hypertension. 3. Small bilateral pleural effusions. No critical changes within the lungs to indicate pulmonary edema. Dictated on workstation # [id number] Dict: 04/11/20 1256 Trans: 04/11/20 1304 [facility] [id number] Interpreted by: LAYO NORRIS MD Electronically signed by: Reviewed: Reviewed by Me Departure Impression Primary Impression: Physical debility Additional Impressions: Pleural effusion Asymptomatic hypertension Disposition: HOME, SELF-CARE Condition: Stable Departure-Patient Inst. Decision time for Depature: 13:25 Referrals: [facility] (PCP) Primary Care Physician MARQUITA WASHBURN (Family) Primary Care Physician Patient Instructions: Coronavirus Disease 2019 (COVID-19) (DC), Generalized Weakness, Medicines for High Blood Pressure, Pleural Effusion (DC) Add. Discharge Instructions: Your blood pressure is significantly elevated. I suggest we increase her clonidine from 0.1 mg to 0.2 mg twice a day. Just take 2 tablets in the morning and 2 in the evening. You can talk your primary care doctor about refilling the prescription next week. If you want to look into inpatient rehabilitation then you should talk to Dr. Marquita Washburn Monday about this. If the COVID-19 comes back positive we will give you a call. Otherwise follow-up with Marquita Washburn for results. All discharge instructions reviewed with patient and/or family. Voiced understanding. Scripts Clonidine HCl (Clonidine HCl) 0.2 Mg Tablet 0.2 MG PO BID, #30 TAB 0 Refills Prov: VIRGILIO ROSAS 04/11/20 VIRGILIO ROSAS Apr 11, 2020 10:57
[2020-04-11] MEDS ORDERED: hydrALAZINE (APESOLINE) 20 MG/ML VIAL IV ONE (11:00)
--- NOTE | 2020-04-11 11:00 | NUR ---
COVID-19 swab obtained at this time.
--- OUTSIDE RECORDS SUMMARY | 2020-04-11 11:00 | XMS REPORT ---
Author Author Michele Barros Organization [facility] Address [address] [place] [address] Care Team Providers Care Town Manager Name Role Phone PapoRACQUELEN Unavailable PROBLEMS Type Condition ICD9-CM Code QYZ60-ZY Code Onset Dates Condition S tatus SNOMED Code Problem Anxiety F41.9 Active 38354815 Problem Essential hypertension I10 Active 46768042 Problem Morbid obesity E66.01 Active 15362 6002 Problem Polyneuropathy associated with underlying disease G63 Active 864214932 Problem Diabetic polyneuropathy associated with type 2 d iabetes mellitus E11.42 Active 67119687 Problem Retinal edema H35.81 Active 616968 6 Problem Chronic lymphocytic leukemia C91.10 A ctive 75528689 Problem Bilateral primary osteoarthritis of knee M17.0 Active 590572571 Problem Type 2 diabetes mellitus with diabetic neuropathy, uns pecified E11.40 Active 16001152 Problem Reactive airway disease J45.909 Active 682340986778 Problem Psychophysiological insomnia F51.04 A ctive 560011653 Problem Leukocytosis D72.829 Active 6557119 06 Problem Insomnia, unspecified type G47.00 Act sharon 534924330 Problem Bipolar I disorder, most recent episode (or curr ent) mixed, moderate F31.62 Active 60537693 Problem Pure hypercholesterolemia E78.00 Acti ve 606855362 Problem Bipolar disorder, in partial remission, most rec ent episode depressed F31.75 Active 81170628 Problem Other iron deficiency anemia D50.8 A ctive 75421845 Problem Eustachian tube dysfunction, unspecified laterality H69.80 Active 06800668 Problem Primary osteoarthritis of right knee M17.11 Active [id number] Problem Cough R05 Active 38319998 Problem Skin cancer C44.90 Active 51129991 7 Problem DM neuro manif type II E11.49 Active 07897115 Problem Mild cognitive impairment G31.84 Acti ve 855577000 Problem Benign prostatic hyperplasia with lower urinary tract symptoms, unspecified morphology N40.1 Active 83885 6007 Problem Chronic diastolic (congestive) heart failure I50.3 2 Active 412328786 Problem Diabetes E11.9 Active 94165640 Problem Bipolar disorder F31.9 Active 137 94347 Problem Chronic pain G89.29 Active 4332032 1 Problem longterm (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 Z79.4 Active 883153148 Problem Mood disorder F39 Active 522624 05 Problem Bipolar I disorder, most recent episode depressed, moderat e F31.32 Active 296612841 Problem Agitation R45.1 Active 963102383 Problem 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 Active 372404679 Problem Lymphocytosis D72.820 Active 419347 09 Problem Dysphagia, unspecified type R13.10 Ac tive 51404887 Problem Anemia of chronic illness D63.8 Acti ve 389335316 Problem Eye exam abnormal R93.8 Active 16 7236933 Problem Hypokalemia E87.6 Active 96875588 Problem Falling R29.6 Active 999227804 Problem Pressure ulcer of other site, stage 3 L89.893 Active 606127148 Problem Gastroesophageal reflux disease without esophagitis K21.9 Active 581555554 Problem Other secondary acute gout, 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 0 Active 402294394 Problem Dysuria R30.0 Active 41351945 Problem PVD (peripheral vascular disease) I73.9 Active 750107755 Problem Gait disturbance R26.9 Active 223 21260 ALLERGIES No Information ENCOUNTERS Encounter Location Date Diagnosis [place] [address] [facility] [id number] [address] [place] [phone] Apr, [facility] [place] [address] [facility] [id number] [address] [place] [phone] Apr, [facility] [place] [address] [facility] [id number] [address] [place] [phone] Mar, [facility] [place] [address] [facility] [id number] [address] [place] [phone] Mar, [place] [address] [facility] [id number] [address] [place] [phone] Mar, Diabetes E11.9 ; Mild cognit sharon impairment G31.84 ; Agitation R45.1 ; Gait disturbance R26.9 and Hypoxemia R09.02 [facility] [place] [address] [facility] [id number] [address] [place] [phone] Mar, [facility] [place] [address] [facility] [id number] [address] [place] [phone] Mar, Chronic pain G89.29 [facility] [place] [address] [facility] [id number] [address] [place] [phone] Mar, [facility] [place] [address] [facility] [id number] [address] [place] [phone] Mar, Bipolar I disorder, most rec ent episode depressed, moderate F31.32 ; Anxiety F41.9 and Mild cognitive impairment G31.84 [place] [address] [facility] [id number] [address] [place] [phone] Mar, Mood disorder F39 [place] [address] [facility] [id number] [address] [place] [phone] Mar, Bipolar I disorder, most rec ent episode depressed, moderate F31.32 ; Anxiety F41.9 and Mild cognitive impairment G31.84 [facility] [place] [address] [facility] [id number] [address] [place] [phone] Feb, Dysphagia, unspecified type R13.10 [facility] [place] [address] [facility] [id number] [address] [place] [phone] Feb, Bipolar I disorder, most rec ent episode depressed, moderate F31.32 ; Anxiety F41.9 and Mild cognitive impairment G31.84 [facility] [place] [address] [facility] [id number] [address] [place] [phone] Feb, [facility] [place] [address] [facility] [id number] [address] [place] [phone] Feb, Gastroesophageal reflux dise ase without esophagitis K21.9 [facility] [place] [address] [facility] [id number] [address] [place] [phone] Feb, [facility] [place] [address] [facility] [id number] [address] [place] [phone] 18 Feb, 2020 Bipolar I disorder, most rec ent episode depressed, moderate F31.32 ; Anxiety F41.9 and Mild cognitive impairment G31.84 [facility] [place] [address] [facility] [id number] [address] [place] [phone] 17 Feb, 2020 Chronic pain G89.29 [facility] [place] [address] [facility] [id number] [address] [place] [phone] 17 Feb, 2020 Agitation R45.1 [facility] [place] [address] [facility] [id number] [address] [place] [phone] 17 Feb, 2020 PVD (peripheral vascular dis ease) I73.9 ; Status post CVA Z86.73 ; Status post carotid endarterectomy Z98.890 ; Vertigo R42 ; Mild cognitive impairment G31.84 ; Type 2 diabetes mellitus with diabetic neuropathy, unspecified E11.40 and Essential hypertension I10 [place] [address] [facility] [id number] [address] [place] [phone] 12 Feb, 2020 [facility] [place] [address] [facility] [id number] [address] [place] [phone] 10 Feb, 2020 [facility] [place] [address] [facility] [id number] [address] [place] [phone] January, [facility] [place] [address] [facility] [id number] [address] [place] [phone] January, Chronic pain G89.29 [facility] [place] [address] [facility] [id number] [address] [place] [phone] Dec, [facility] [place] [address] [facility] [id number] [address] [place] [phone] Dec, Chronic pain G89.29 [facility] [place] [address] [facility] [id number] [address] [place] [phone] Dec, [facility] [place] [address] [facility] [id number] [address] [place] [phone] 07 Dec, 2019 [facility] [place] [address] [id number] [address] [place] [phone] 07 Dec, 2019 Gastroesophageal reflux dise ase without esophagitis K21.9 and Pure hypercholesterolemia E78.00 [facility] [place] [address] [facility] [id number] [address] [place] [phone] Dec, Mood disorder F39 [place] [address] [facility] [id number] [address] [place] [phone] Nov, Other secondary acute gout, 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 [place] [address] [facility] [id number] [address] [place] [phone] Nov, Gastroesophageal reflux dise ase without esophagitis K21.9 [place] [address] [facility] [id number] [address] [place] [phone] Nov, Chronic pain G89.29 [place] [address] [facility] [id number] [address] [place] [phone] Nov, Bipolar I disorder, most rec ent episode depressed, moderate F31.32 ; Anxiety F41.9 and Mild cognitive impairment G31.84 [place] [address] [facility] [id number] [address] [place] [phone] Nov, [place] [address] [facility] [id number] [address] [place] [phone] Nov, Syncope, unspecified syncope type R55 [place] [address] [facility] [id number] [address] [place] [phone] Nov, Mood disorder F39 [place] [address] [facility] [id number] [address] [place] [phone] Oct, Chronic pain G89.29 [facility] [place] [address] [facility] [id number] [address] [place] [phone] Oct, [place] [address] [facility] [id number] [address] [place] [phone] Oct, Mood disorder F39 [place] [address] [facility] [id number] [address] [place] [phone] 10 Oct, 2019 [facility] [place] [address] [id number] [address] [place] [phone] 10 Oct, 2019 Bipolar disorder, in partial remission, most recent episode depressed F31.75 and Mild cognitive impairment G31.84 [facility] [place] [address] [id number] [address] [place] [phone] 04 Oct, 2019 Mood disorder F39 [facility] [place] [address] [id number] [address] [place] [phone] Sep, [facility] [place] [address] [id number] [address] [place] [phone] Sep, Mood disorder F39 [facility] [place] [address] [id number] [address] [place] [phone] 13 Sep, 2019 Bipolar disorder, in partial remission, most recent episode depressed F31.75 and Mild cognitive impairment G31.84 [facility] [place] [address] [id number] [address] [place] [phone] 06 Sep, 2019 Mood disorder F39 [facility] [place] [address] [id number] [address] [place] [phone] Sep, [facility] [place] [address] [id number] [address] [place] [phone] Sep, Mood disorder F39 [facility] [place] [address] [id number] [address] [place] [phone] Sep, [facility] [place] [address] [id number] [address] [place] [phone] Aug, Mood disorder F39 [facility] [place] [address] [id number] [address] [place] [id number] Aug, [facility] [place] [address] [id number] [address] [place] [phone] Aug, [facility] [place] [address] [id number] [address] [place] [phone] Aug, [facility] [place] [address] [id number] [address] [place] [phone] Aug, [facility] [place] [address] [id number] [address] [place] [phone] Aug, [facility] [place] [address] [id number] [address] [place] [phone] Aug, [facility] [place] [address] [id number] [address] [place] [phone] Aug, [facility] [place] [address] [id number] [address] [place] [phone] Aug, Essential hypertension I10 [facility] [place] [address] [id number] [address] [place] [phone] Aug, Bipolar disorder, in partial remission, most recent episode depressed F31.75 and Mild cognitive impairment G31.84 [facility] [place] [address] [id number] [address] [place] [phone] Aug, Mood disorder F39 [facility] [place] [address] [id number] [address] [place] [phone] Aug, [facility] [place] [address] [id number] [address] [place] [phone] Aug, Bipolar disorder, in partial remission, most recent episode depressed F31.75 and Mild cognitive impairment G31.84 [facility] [place] [address] [id number] [address] [place] [phone] Jul, Bipolar disorder, in partial remission, most recent episode depressed F31.75 and Mild cognitive impairment G31.84 [facility] [place] [address] [id number] [address] [place] [phone] Jul, Psychophysiological insomnia F51.04 [facility] [place] [address] [id number] [address] [place] [phone] Jul, [facility] [place] [address] [id number] [address] [place] [phone] Jul, [facility] [place] [address] [id number] [address] [place] [phone] Jul, [facility] [place] [address] [id number] [address] [place] [phone] Jul, [facility] [place] [address] [id number] [address] [place] [phone] Jul, [facility] [place] [address] [id number] [address] [place] [phone] Jul, [facility] [place] [address] [id number] [address] [place] [phone] Jul, Bipolar disorder, in partial remission, most recent episode depressed F31.75 and Mild cognitive impairment G31.84 [facility] [place] [address] [facility] [id number] [address] [place] [phone] Jul, Chronic pain G89.29 ; Diabet es E11.9 ; Essential hypertension I10 ; Ill feeling R68.89 ; Local infection of the skin and subcutaneous tissue, unspecified L08.9 and Other injury of unspecified body region, initial encounter T14.8XXA [facility] [place] [address] [facility] [id number] [address] [place] [phone] Jun, Bipolar disorder, in partial remission, most recent episode depressed F31.75 and Mild cognitive impairment G31.84 [facility] [place] [address] [id number] [address] [place] [phone] Jun, [facility] [place] [address] [facility] [id number] [address] [place] [phone] Jun, Bipolar disorder, in partial remission, most recent episode depressed F31.75 and Mild cognitive impairment G31.84 [facility] [place] [address] [facility] [id number] [address] [place] [phone] Jun, Psychophysiological insomnia F51.04 [facility] [place] [address] [facility] [id number] [address] [place] [phone] Jun, Psychophysiological insomnia F51.04 ; Chronic pain G89.29 ; Bipolar I disorder, most recent episode (or current) mixed, moderate F31.62 ; 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 ; Polyneuropathy associated with underlying disease G63 ; Type 2 diabetes mellitus with diabetic neuropathy, unspecified E11.40 ; 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 and Hyperglycemia R73.9 [facility] [place] [address] [facility] [id number] [address] [place] [phone] Jun, Bipolar disorder, in partial remission, most recent episode depressed F31.75 and Mild cognitive impairment G31.84 [facility] [place] [address] [facility] [id number] [address] [place] [phone] Jun, [facility] [place] [address] [facility] [id number] [address] [place] [phone] Jun, Bipolar disorder F31.9 [facility] [place] [address] [facility] [id number] [address] [place] [phone] May, Bipolar disorder, in partial remission, most recent episode depressed F31.75 and Mild cognitive impairment G31.84 [facility] [place] [address] [facility] [id number] [address] [place] [phone] May, [facility] [place] [address] [facility] [id number] [address] [place] [phone] Apr, Chronic pain G89.29 and Bipo lar disorder F31.9 [facility] [place] [address] [facility] [id number] [address] [place] [phone] Mar, Bipolar disorder F31.9 and C hronic pain G89.29 [facility] [place] [address] [facility] [id number] [address] [place] [phone] Feb, Bipolar disorder F31.9 [facility] [place] [address] [facility] [id number] [address] [place] [phone] Feb, Cellulitis of right upper ex tremity L03.113 and Skin abrasion T14.8XXA [facility] [place] [address] [facility] [id number] [address] [place] [phone] Feb, Bipolar disorder, in partial remission, most recent episode depressed F31.75 and Mild cognitive impairment G31.84 [facility] [place] [address] [id number] [address] [place] [phone] Feb, Chronic pain G89.29 [facility] [place] [address] [id number] [address] [place] [phone] Feb, Bipolar disorder, in partial remission, most recent episode depressed F31.75 and Mild cognitive impairment G31.84 [facility] [place] [address] [id number] [address] [place] [phone] January, Bipolar disorder, in partial remission, most recent episode depressed F31.75 and Mild cognitive impairment G31.84 [facility] [place] [address] [id number] [address] [place] [phone] January, Chronic pain G89.29 and Bipo lar disorder F31.9 [facility] [place] [address] [id number] [address] [place] [phone] January, Bipolar disorder, in partial remission, most recent episode depressed F31.75 and Mild cognitive impairment G31.84 [facility] [place] [address] [id number] [address] [place] [id number] Dec, [facility] [place] [address] [id number] [address] [place] [phone] Dec, Chronic pain G89.29 and Bipo lar disorder F31.9 [facility] [place] [address] [id number] [address] [place] [phone] Dec, Edema of both lower extremit ies R60.0 [facility] [place] [address] [id number] [address] [place] [phone] Dec, Bipolar disorder F31.9 [facility] [place] [address] [id number] [address] [place] [phone] Dec, Bipolar disorder, in partial remission, most recent episode depressed F31.75 and Mild cognitive impairment G31.84 [facility] [place] [address] [place] [id number] [address] [place] [phone] Nov, [place] [address] [place] [id number] [address] [place] [id number] Nov, Chronic pain G89.29 [place] [address] [place] [id number] [address] [place] [phone] Nov, Bipolar disorder, in partial remission, most recent episode depressed F31.75 and Mild cognitive impairment G31.84 [place] [address] [place] [id number] [address] [place] [phone] Nov, Bipolar disorder F31.9 [place] [address] [place] [id number] [address] [place] [phone] 04 Nov, 2018 Encounter for Medicare annua [...] N40.1 and Essential hypertension I10 [place] [address] [place] [id number] [address] [place] [phone] Oct, Chronic pain G89.29 [place] [address] [place] [id number] [address] [place] [phone] Oct, Diabetes E11.9 [place] [address] [place] [id number] [address] [place] [phone] Oct, Bipolar I disorder, most rec ent episode (or current) mixed, moderate F31.62 and Mild cognitive impairment G31.84 [place] [address] [place] [id number] [address] [place] [phone] Oct, Bipolar I disorder, most rec ent episode (or current) mixed, moderate F31.62 and Mild cognitive impairment G31.84 [place] [address] [facility] [id number] [address] [place] [phone] Sep, Bipolar I disorder, most rec ent episode (or current) mixed, moderate F31.62 and Mild cognitive impairment G31.84 [place] [address] [place] [id number] [address] [place] [phone] Sep, [place] [address] [place] [id number] [address] [place] [phone] Sep, Diabetes E11.9 ; Hypoxia R09 .02 ; Hyperglycemia R73.9 ; Therapeutic drug monitoring Z51.81 ; BMI 50.0-59.9, adult Z68.43 and Skin cancer C44.90 [place] [address] [place] [id number] [address] [place] [id number] Sep, Chronic pain G89.29 [place] [address] [place] [id number] [address] [place] [phone] Sep, Bipolar I disorder, most rec ent episode (or current) mixed, moderate F31.62 [place] [address] [place] [id number] [address] [place] [id number] Sep, [place] [address] [place] [id number] [address] [place] [id number] Sep, [place] [address] [place] [id number] [address] [place] [id number] Aug, Chronic pain G89.29 [place] [address] [facility] [id number] [address] [place] [id number] Aug, Bipolar I disorder, most rec ent episode (or current) mixed, moderate F31.62 [place] [address] [place] [id number] [address] [place] [phone] Aug, Bipolar I disorder, most rec ent episode (or current) mixed, moderate F31.62 and Mild cognitive impairment G31.84 [place] [address] [place] [id number] [address] [place] [id number] Jul, [facility], [place] [address] [id number] [address] [place] [id number] Jul, Chronic pain G89.29 [facility], [place] [address] [id number] [address] [place] [phone] Jul, Bipolar I disorder, most rec ent episode (or current) mixed, moderate F31.62 and Mild cognitive impairment G31.84 [facility], [place] [address] [id number] [address] [place] [phone] Jul, Bipolar I disorder, most rec ent episode (or current) mixed, moderate F31.62 and MCI (mild cognitive impairment) G31.84 [facility], [place] [address] [id number] [address] [place] [id number] Jul, [facility], [place] [address] [id number] [address] [place] [id number] Jul, [facility], [place] [address] [id number] [address] [place] [id number] Jul, Bipolar I disorder, most rec ent episode (or current) mixed, moderate F31.62 [facility], [place] [address] [id number] [address] [place] [phone] Jul, Chronic pain G89.29 [facility] [place] [address] [id number] [address] [place] [phone] Jun, Bipolar I disorder, most rec ent episode (or current) mixed, moderate F31.62 [facility] [place] [address] [id number] [address] [place] [phone] Jun, Pre-procedure lab exam Z01.8 12 [facility] [place] [address] [id number] [address] [place] [phone] Jun, [facility] [address] [id number] [place] [id number] Jun, [facility] [place] [address] [id number] [address] [place] [id number] Jun, [facility] [place] [address] [facility] [id number] [address] [place] [phone] Jun, Forgetfulness R68.89 ; Pre-s yncope R55 ; Localized edema R60.0 ; Other iron deficiency anemia D50.8 and BMI 50.0-59.9, adult Z68.43 [place] [address] [place] [id number] [address] [place] [phone] Jun, Chronic pain G89.29 [place] [address] [place] [id number] [address] [place] [id number] Jun, Chronic pain G89.29 [place] [address] [place] [id number] [place] [phone] Jun, Bipolar I disorder, most rec ent episode (or current) mixed, moderate F31.62 [place] [address] [place] [id number] [address] [place] [phone] May, Chronic pain G89.29 [place] [address] [place] [id number] [address] [place] [phone] Apr, [place] [address] [place] [id number] [address] [place] [phone] Apr, Chronic pain G89.29 [place] [address] [place] [id number] [address] [place] [phone] Apr, Primary osteoarthritis of ri ght knee M17.11 [place] [address] [facility] [id number] [address] [place] [phone] Mar, [place] [address] [place] [id number] [address] [place] [phone] Mar, BMI 50.0-59.9, adult Z68.43 and Bipolar disorder, in partial remission, most recent episode depressed F31.75 [place] [address] [place] [id number] [address] [place] [phone] Mar, Diabetes E11.9 ; Pure hyperc holesterolemia E78.00 ; Essential hypertension I10 ; Nausea with vomiting, unspecified R11.2 and Headache, unspecified headache type R51 [place] [address] [address] Mar, Bipolar I disorder, most rec ent episode (or current) mixed, moderate F31.62 [place] [address] [address] Mar, Bipolar I disorder, most rec ent episode (or current) mixed, moderate F31.62 [place] [address] [address] Mar, Chronic pain G89.29 [place] [address] [address] Mar, Bipolar I disorder, most rec ent episode (or current) mixed, moderate F31.62 [place] [address] [id number] Feb, Bipolar I disorder, most rec ent episode (or current) mixed, moderate F31.62 [place] [address] [address] Feb, Chronic pain G89.29 [place] [address] [address] Feb, Decubitus ulcer of right josselin t, stage 3 L89.893 and BMI 50.0-59.9, adult Z68.43 [place] [address] [id number] Feb, Bipolar I disorder, most rec ent episode (or current) mixed, moderate F31.62 [place] [address] [place] [id number] [address] [place] [phone] Feb, [place] [address] [id number] January, [place] [address] [facility] [id number] [address] [place] [phone] January, Chronic pain G89.29 [place] [address] [facility] [id number] [address] [place] [phone] January, Bipolar I disorder, most rec ent episode (or current) mixed, moderate F31.62 [place] [address] [facility] [id number] [address] [place] [phone] January, Bipolar I disorder, most rec ent episode (or current) mixed, moderate F31.62 [place] [address] [facility] [id number] [address] [place] [id number] Dec, Bipolar I disorder, most rec ent episode (or current) mixed, moderate F31.62 and BMI 50.0-59.9, adult Z68.43 [place] [address] [place] [id number] [address] [place] [id number] Dec, Bipolar I disorder, most rec ent episode (or current) mixed, moderate F31.62 [place] [address] [place] [id number] [address] [place] [address] Dec, Chronic pain G89.29 [place] [address] [place] [id number] [address] [place] [address] Dec, DM neuro manif type II E11.4 9 ; Right flank pain R10.9 ; longterm current use of opiate analgesic Z79.891 ; Encounter for medication monitoring Z51.81 and BMI 50.0-59.9, adult Z68.43 [place] [address] [facility] [id number] [address] [place] [phone] Dec, Bipolar I disorder, most rec ent episode (or current) mixed, moderate F31.62 [place] [address] [place] [id number] [address] [place] [phone] Nov, Bipolar I disorder, most rec ent episode (or current) mixed, moderate F31.62 [place] [address] [place] [id number] [address] [place] [address] Nov, Chronic pain G89.29 [facility] [place] [address] [facility] [id number] [address] [place] [id number] Nov, Bipolar I disorder, most rec ent episode (or current) mixed, moderate F31.62 [facility] [place] [address] [facility] [id number] [address] [place] [id number] Nov, Hypokalemia E87.6 [facility] [place] [address] [facility] [id number] [address] [place] [phone] Nov, Bipolar I disorder, most rec ent episode (or current) mixed, moderate F31.62 [place] [address] [facility] [id number] [address] [place] [phone] Oct, Chronic pain G89.29 [facility] [place] [address] [place] [id number] [address] [place] [phone] Oct, BMI 50.0-59.9, adult Z68.43 and Bipolar I disorder, most recent episode (or current) mixed, moderate F31.62 [place] [address] [facility] [id number] [address] [place] [phone] Oct, Bipolar I disorder, most rec ent episode (or current) mixed, moderate F31.62 [facility] [place] [address] [facility] [id number] [address] [place] [id number] Oct, [place] [address] [facility] [id number] [address] [place] [phone] Oct, Hypokalemia E87.6 [facility] [place] [address] [facility] [id number] [address] [place] [phone] Oct, DM neuro manif type II E11.4 9 [facility] [place] [address] [facility] [id number] [address] [place] [phone] Oct, Bipolar I disorder, most rec ent episode (or current) mixed, moderate F31.62 [place] [address] [facility] [id number] [address] [place] [id number] 20 Oct, 2017 Bipolar I disorder, most rec ent episode (or current) mixed, moderate F31.62 [place] [address] [id number] 14 Oct, 2017 Hyperkalemia E87.5 ; Falling R29.6 ; BMI 50.0-59.9, adult Z68.43 and Acute left ankle pain M25.572 [place] [address] [id number] 08 Oct, 2017 DM neuro manif type II E11.[address] [address] Oct, [place] [address] [address] Sep, Chronic pain G89.29 [place] [address] [address] Sep, [place] [address] [address] Sep, Bilateral primary osteoarthr itis of knee M17.0 [place] [address] [address] Sep, Generalized edema R60.1 [place] [address] [address] Sep, Bipolar I disorder, most rec ent episode (or current) mixed, moderate F31.62 [place] [address] [address] 15 Sep, 2017 Hypoxia R09.02 ; Other hyper volemia E87.79 ; Diabetes E11.9 ; Retinal edema H35.81 ; Hypokalemia E87.6 ; 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 ; Anemia of chronic illness D63.8 and BMI 50.0- 59.9, adult Z68.43 [place] [address] [place] [address] [place] [address] Sep, [facility] [place] [address] [facility] [id number] [address] [place] [id number] Sep, Bipolar I disorder, most rec ent episode (or current) mixed, moderate F31.62 [facility] [place] [address] [place] [id number] [address] [place] [phone] Aug, Chronic pain G89.29 [facility] [place] [address] [place] [id number] [address] [place] [phone] Aug, Generalized edema R60.1 [facility], [place] [address] [place] [id number] [address] [place] [phone] Aug, [facility] [place] [address] [place] [id number] [address] [place] [phone] Aug, [facility] [place] [address] [place] [id number] [address] [place] [id number] Aug, Bipolar I disorder, most rec ent episode (or current) mixed, moderate F31.62 [place] [address] [place] [id number] [address] [place] [phone] Aug, Bipolar I disorder, most rec ent episode (or current) mixed, moderate F31.62 [place] [address] [place] [id number] [address] [place] [address] Aug, Chronic pain G89.29 [facility] [place] [address] [place] [id number] [address] [place] [id number] 30 Jul, 2017 Bipolar I disorder, most rec ent episode (or current) mixed, moderate F31.62 [facility] [place] [address] [place] [id number] [address] [place] [phone] Jul, Bipolar I disorder, most rec ent episode (or current) mixed, moderate F31.62 and BMI 60.0-69.9, adult Z68.44 [facility], [place] [address] [place] [id number] [address] [place] [id number] 16 Jul, 2017 Bipolar I disorder, most rec ent episode (or current) mixed, moderate F31.62 [facility] [place] [address] [id number] [address] [place] [id number] Jul, Chronic pain G89.29 [facility] [place] [address] [facility] [id number] [address] [place] [address] Jul, Bipolar I disorder, most rec ent episode (or current) mixed, moderate F31.62 [facility] [place] [address] [facility] [id number] [address] [place] [phone] Jun, Polyneuropathy associated wi th underlying disease G63 and Diabetes E11.9 [facility] [place] [address] [facility] [id number] [address] [place] [phone] Jun, Bipolar I disorder, most rec ent episode (or current) mixed, moderate F31.62 [facility] [place] [address] [facility] [id number] [address] [place] [phone] Jun, Chronic pain G89.29 [facility] [place] [address] [id number] [address] [place] [id number] 27 May, 2017 Bipolar I disorder, most rec ent episode (or current) mixed, moderate F31.62 [facility] [place] [address] [facility] [id number] [address] [place] [phone] May, Bipolar I disorder, most rec ent episode (or current) mixed, moderate F31.62 [facility] [place] [address] [facility] [id number] [address] [place] [phone] 20 May, 2017 Diabetic polyneuropathy asso ciated with type 2 diabetes mellitus E11.42 [facility] [place] [address] [id number] [address] [place] [id number] 18 May, 2017 Bipolar I disorder, most rec ent episode (or current) mixed, moderate F31.62 [facility] [place] [address] [facility] [id number] [address] [place] [id number] 13 May, 2017 Bipolar I disorder, most rec ent episode (or current) mixed, moderate F31.62 [place] [address] [id number] [address] [place] [id number] May, Chronic pain G89.29 [facility] [place] [address] [id number] [address] [place] [phone] Apr, Bipolar I disorder, most rec ent episode (or current) mixed, moderate F31.62 [facility] [place] [address] [id number] [address] [place] [phone] Apr, [facility] [place] [address] [id number] [address] [place] [phone] Apr, Chronic pain G89.29 and DM n euro manif type II E11.49 [facility] [place] [address] [id number] [address] [place] [phone] Apr, [facility] [place] [address] [facility] [id number] [address] [place] [phone] Apr, Bipolar I disorder, most rec ent episode (or current) mixed, moderate F31.62 [facility] [place] [address] [facility] [id number] [address] [place] [phone] Apr, Chronic pain G89.29 [facility] [place] [address] [facility] [id number] [address] [place] [phone] Apr, Iliotibial band syndrome, le ft M76.32 [facility] [place] [address] [facility] [id number] [address] [place] [phone] Apr, Bipolar I disorder, most rec ent episode (or current) mixed, moderate F31.62 [facility] [place] [address] [facility] [id number] [address] [place] [id number] Mar, Bipolar I disorder, most rec ent episode (or current) mixed, moderate F31.62 [facility] [place] [address] [facility] [id number] [address] [place] [phone] Mar, Bipolar I disorder, most rec ent episode (or current) mixed, moderate F31.62 [facility] [place] [address] [id number] [address] [place] [id number] Mar, [facility] [place] [address] [id number] [address] [place] [phone] Mar, Bipolar I disorder, most rec ent episode (or current) mixed, moderate F31.62 [facility] [place] [address] [facility] [id number] [address] [place] [id number] Mar, Chronic pain G89.29 [facility] [place] [address] [facility] [id number] [address] [place] [id number] Mar, Bipolar I disorder, most rec ent episode (or current) mixed, moderate F31.62 [facility] [place] [address] [facility] [id number] [address] [place] [id number] Mar, Bipolar I disorder, most rec ent episode (or current) mixed, moderate F31.62 [facility] [place] [address] [place] [id number] [address] [place] [phone] Mar, Acute pain of left knee M25. 562 ; Left hip pain M25.552 ; Generalized edema R60.1 and Tongue swelling R22.0 [facility] [place] [address] [facility] [id number] [address] [place] [id number] Mar, [facility] [place] [address] [facility] [id number] [address] [place] [phone] Feb, Chronic pain G89.29 [facility] [place] [address] [facility] [id number] [address] [place] [id number] Feb, Diabetes E11.9 [facility] [place] [address] [facility] [id number] [address] [place] [phone] January, Chronic pain G89.29 [facility] [place] [address] [facility] [id number] [address] [place] [id number] January, [facility] [place] [address] [facility] [id number] [address] [place] [phone] January, Bipolar I disorder, most rec ent episode (or current) mixed, moderate F31.62 [facility] [place] [address] [id number] [address] [place] [id number] Dec, Bipolar I disorder, most rec ent episode (or current) mixed, moderate F31.62 [facility] [place] [address] [facility] [id number] [address] [place] [id number] Dec, Chronic pain G89.29 [facility] [place] [address] [facility] [id number] [address] [place] [id number] Dec, Bipolar I disorder, most rec ent episode (or current) mixed, moderate F31.62 [facility] [place] [address] [id number] [address] [place] [id number] Dec, Diabetes E11.9 ; Essential h ypertension I10 ; Chronic pain G89.29 and Morbid obesity E66.01 [facility] [place] [address] [facility] [id number] [address] [place] [id number] Dec, [facility] [place] [address] [facility] [id number] [address] [place] [id number] Dec, Bipolar I disorder, most rec ent episode (or current) mixed, moderate F31.62 [facility] [place] [address] [facility] [id number] [address] [place] [id number] Dec, Bipolar I disorder, most rec ent episode (or current) mixed, moderate F31.62 [facility] [place] [address] [facility] [id number] [address] [place] [phone] Nov, Chronic pain G89.29 [facility] [place] [address] [id number] [address] [place] [phone] Nov, Bipolar I disorder, most rec ent episode (or current) mixed, moderate F31.62 [facility] [place] [address] [facility] [id number] [address] [place] [id number] Nov, [facility] [place] [address] [facility] [id number] [address] [place] [phone] Nov, Bipolar I disorder, most rec ent episode (or current) mixed, moderate F31.62 [facility] [place] [address] [id number] [address] [place] [phone] Nov, Bipolar I disorder, most rec ent episode (or current) mixed, moderate F31.62 [facility] [place] [address] [id number] [address] [place] [id number] Nov, [facility] [place] [address] [facility] [id number] [address] [place] [phone] Nov, [facility] [place] [address] [facility] [id number] [address] [place] [phone] Nov, [facility] [place] [address] [facility] [id number] [address] [place] [id number] Oct, Chronic pain G89.29 [facility] [place] [address] [facility] [id number] [address] [place] [phone] Oct, Bipolar I disorder, most rec ent episode (or current) mixed, moderate F31.62 [facility] [place] [address] [facility] [id number] [address] [place] [phone] Oct, [facility] [place] [address] [facility] [id number] [address] [place] [phone] Oct, Chronic pain G89.29 ; Diabet es E11.9 ; Anxiety F41.9 and 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 [facility] [place] [address] [facility] [id number] [address] [place] [phone] Oct, [facility] [place] [address] [facility] [id number] [address] [place] [id number] Oct, Diabetes E11.9 [facility] [place] [address] [facility] [id number] [address] [place] [id number] Oct, Bipolar I disorder, most rec ent episode (or current) mixed, moderate F31.62 [facility] [place] [address] [facility] [id number] [address] [place] [phone] Sep, Chronic pain G89.29 [facility] [place] [address] [id number] [address] [place] [id number] Sep, Chronic pain G89.29 [facility] [place] [address] [facility] [id number] [address] [place] [phone] Aug, Chronic pain G89.29 [facility] [place] [address] [facility] [id number] [address] [place] [id number] Jul, [facility], [place] [address] [facility] [id number] [address] [place] [id number] Jul, Diabetes E11.9 [facility], [place] [address] [id number] [address] [place] [id number] Jul, Chronic pain G89.29 [facility], [place] [address] [facility] [id number] [address] [place] [id number] Jul, Bipolar I disorder, most rec ent episode (or current) mixed, moderate F31.62 [facility], [place] [address] [facility] [id number] [address] [place] [phone] Jun, Bipolar I disorder, most rec ent episode (or current) mixed, moderate F31.62 [facility], [place] [address] [facility] [id number] [address] [place] [id number] Jun, [facility], [place] [address] [facility] [id number] [address] [place] [id number] Jun, Bipolar I disorder, most rec ent episode (or current) mixed, moderate F31.62 [facility], [place] [address] [facility] [id number] [address] [place] [phone] 30 May, 2016 Insomnia, unspecified type G 47.00 [facility], [place] [address] [facility] [id number] [address] [place] [id number] 22 May, 2016 Bipolar I disorder, most rec ent episode (or current) mixed, moderate F31.62 [facility], [place] [address] [facility] [id number] [address] [place] [id number] 14 May, 2016 [facility], [place] [address] [place] [id number] [address] [place] [id number] May, Bipolar I disorder, most rec ent episode (or current) mixed, moderate F31.62 [place] [address] [facility] [id number] [address] [place] [id number] May, Diabetes E11.9 and Essential hypertension I10 [place] [address] [facility] [id number] [address] [place] [id number] Apr, Chronic pain G89.29 [place] [address] [place] [id number] [address] [place] [phone] Apr, Bipolar I disorder, most rec ent episode (or current) mixed, moderate F31.62 [place] [address] [place] [id number] [address] [place] [phone] Apr, [place] [address] [place] [id number] [address] [place] [id number] Apr, [place] [address] [place] [id number] [place] [phone] Mar, Chronic pain G89.29 ; Headac he, unspecified headache type R51 ; Neuropathy G62.9 ; Pain of right hip joint M25.551 and Essential hypertension I10 [place] [address] [facility] [id number] [address] [place] [phone] Mar, Chronic pain G89.29 [place] [address] [place] [id number] [address] [place] [id number] Mar, Bipolar I disorder, most rec ent episode (or current) mixed, moderate F31.62 [place] [address] [place] [id number] [address] [place] [phone] Feb, Bipolar I disorder, most rec ent episode (or current) mixed, moderate F31.62 and Insomnia, unspecified type G47.00 [place] [address] [place] [id number] [address] [place] [id number] Feb, Chronic pain G89.29 [place] [address] [id number] [address] [place] [phone] Feb, Bipolar I disorder, most rec ent episode (or current) mixed, moderate F31.62 [facility] [place] [address] [id number] [address] [place] [id number] January, Bipolar I disorder, most rec ent episode (or current) mixed, moderate F31.62 [facility] [place] [address] [id number] [address] [place] [id number] January, Chronic pain G89.29 [facility] [place] [address] [id number] [address] [place] [id number] January, Chronic pain G89.29 and Esse ntial hypertension I10 [facility] [place] [address] [id number] [address] [place] [id number] January, Bipolar I disorder, most rec ent episode (or current) mixed, moderate F31.62 [facility] [place] [address] [id number] [address] [place] [phone] Dec, [facility] [place] [address] [id number] [address] [place] [id number] Dec, [facility] [place] [address] [id number] [address] [place] [id number] Dec, [facility] [place] [address] [id number] [address] [place] [id number] Dec, [facility] [place] [address] [id number] [address] [place] [id number] Nov, Reactive airway disease J45. 909 [facility] [place] [address] [id number] [address] [place] [phone] Nov, [facility] [place] [address] [id number] [address] [place] [id number] Nov, [facility] [place] [address] [id number] [address] [place] [id number] Nov, [place] [address] [address] Nov, [address] [id number] Nov, Onychomycosis B35.1 ; Hammer toe M20.40 ; [place] or callus L84 and DM neuro manif type II E11.[address] [id number] Nov, Chronic pain G89.29 ; Leukoc ytosis D72.829 and Diabetes E11.[address] [address] Nov, [address] [address] Oct, Bronchitis J40 [address] [id number] Oct, [address] [id number] Oct, [address] [address] Oct, Mastoiditis, unspecified lat erality H70.90 and Type 2 diabetes mellitus with complication E11.[address] [id number] Sep, [address] [id number] Sep, Dysuria R30.0 ; Cough R05 ; Benign prostatic hyperplasia with lower urinary tract symptoms, unspecified morphology N40.1 ; Hypokalemia E87.6 and Eustachian tube dysfunction, unspecified laterality H69.[address] [address] Sep, Moderate mixed bipolar I dis order F31.[address] [id number] [address] [place] [phone] Sep, Hypokalemia E87.6 [facility] [address] [id number] [address] [place] [id number] Sep, [facility] [address] [id number] [address] [place] [id number] Sep, Upper respiratory tract infe ction, unspecified type J06.9 [facility] [address] [id number] [address] [place] [id number] Aug, [facility] [place] [address] [id number] [address] [place] [phone] Aug, Dysuria R30.0 [facility] [place] [address] [id number] [address] [place] [phone] Aug, [facility] [place] [address] [id number] [address] [place] [id number] Jul, [facility] [place] [address] [id number] [address] [place] [id number] Jul, [facility] [address] [id number] [address] [place] [id number] Jul, [facility] [place] [address] [id number] [address] [place] [phone] Jul, [facility] [place] [address] [id number] [address] [place] [id number] Jun, [facility] [place] [address] [id number] [address] [place] [id number] Jun, [facility] [address] [id number] [address] [place] [id number] Jun, [facility] [address] [id number] [address] [place] [id number] 29 May, 2015 [facility] [place] [address] [id number] [address] [place] [id number] May, Bipolar I disorder, most rec ent episode (or current) mixed, moderate 296.62 [facility] [place] [address] [id number] [address] [place] [id number] May, [facility] [place] [address] [id number] [address] [place] [id number] May, Bipolar I disorder, most rec ent episode (or current) mixed, moderate 296.62 and Major depressive disorder, recurrent episode, severe, specified as with psychotic behavior 296.34 [facility] [place] [address] [id number] [address] [place] [id number] May, Bipolar I disorder, most rec ent episode (or current) mixed, moderate 296.62 [facility] [place] [address] [id number] [address] [place] [id number] May, [facility] [place] [address] [id number] [address] [place] [id number] Apr, [facility] [place] [address] [id number] [address] [place] [id number] Apr, [facility] [place] [address] [id number] [address] [place] [id number] Apr, Unspecified disorder of kidn ey and ureter 593.9 and Diabetes mellitus type 2, uncontrolled 250.02 [facility] [place] [address] [id number] [address] [place] [id number] Apr, [facility] [place] [address] [id number] [address] [place] [id number] Apr, [facility] [place] [address] [id number] [address] [place] [address] Apr, [facility] [place] [address] [id number] [address] [place] [id number] Apr, [facility] [place] [address] [id number] [address] [place] [address] Apr, Diabetes mellitus type II, u ncontrolled 250.02 [facility] [place] [address] [id number] [address] [place] [id number] Apr, [facility] [place] [address] [id number] [address] [place] [id number] Mar, [facility] [place] [address] [id number] [address] [place] [id number] Mar, [facility] [place] [address] [id number] [address] [place] [id number] Mar, [facility] [place] [address] [id number] [address] [place] [id number] Mar, Major depressive disorder, r ecurrent episode, severe, specified as with psychotic behavior 296.34 and Bipolar I disorder, most recent episode (or current) mixed, moderate 296.62 [facility] [place] [address] [place] [id number] [address] [place] [id number] Mar, Diabetes 250.00 ; Anuria 788 .5 ; Nausea and vomiting 787.01 and Diarrhea 787.91 [facility] [place] [address] [id number] [address] [place] [id number] Mar, Diabetes 250.00 [facility] [place] [address] [id number] [address] [place] [id number] Mar, [facility] [place] [address] [id number] [address] [place] [phone] Mar, Diabetes 250.00 [facility] [place] [address] [id number] [address] [place] [phone] Mar, [facility] [place] [address] [id number] [address] [place] [id number] Mar, [facility] [place] [address] [id number] [address] [place] [phone] Mar, [facility] [place] [address] [id number] [address] [place] [phone] Mar, [facility] [place] [address] [id number] [address] [place] [id number] Mar, Bipolar I disorder, most rec ent episode (or current) mixed, moderate 296.62 and Major depressive disorder, recurrent episode, severe, specified as with psychotic behavior 296.34 [place] [address] [address] Mar, Magnesium deficiency 275.2 ; Hypokalemia 276.8 ; Nausea & vomiting 787.01 and Diabetes mellitus type 2, uncontrolled 250.02 [place] [address] [id number] Feb, [place] [address] [address] Feb, Bipolar I disorder, most rec ent episode (or current) mixed, moderate 296.62 [place] [address] [address] Feb, Nausea and vomiting 787.01 ; Left elbow pain 719.42 ; Anuria 788.5 and Diabetes 250.00 [place] [address] [address] Feb, [address] [address] Feb, Hypopotassemia 276.8 and Hyp okalemia 276.[address] [address] Feb, Hypopotassemia 276.8 and Hyp okalemia 276.8 [place] [address] [address] Feb, Seborrheic keratoses 702.[address] [address] Feb, Hypopotassemia 276.8 and Low magnesium levels 275.[address] [address] January, [place] [address] [id number] [address] [place] [phone] January, [facility] [place] [address] [id number] [address] [place] [phone] January, [facility] [place] [address] [id number] [address] [place] [phone] January, Scalp lesion 709.9 [facility] [place] [address] [id number] [address] [place] [id number] January, [facility] [place] [address] [id number] [address] [place] [phone] Dec, Tear of medial cartilage or meniscus of knee, current 836.0 and Chondromalacia 733.92 [facility] [place] [address] [id number] [address] [place] [id number] Dec, [facility] [place] [address] [id number] [address] [place] [phone] Dec, [facility] [place] [address] [id number] [address] [place] [id number] Dec, Squamous cell carcinoma, 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 [facility] [place] [address] [id number] [address] [place] [phone] Dec, [facility] [place] [address] [id number] [address] [place] [phone] Dec, [facility] [place] [address] [id number] [address] [place] [phone] Nov, [facility] [place] [address] [id number] [address] [place] [phone] Nov, [facility] [place] [address] [id number] [address] [place] [id number] Nov, [facility] [place] [address] [id number] [address] [place] [phone] Nov, [facility] [place] [address] [id number] [address] [place] [id number] Nov, 2014 [facility] [address] [id number] [address] [place] [address], [place] [id number] Nov, 2014 [facility] [address] [id number] [address] [place] [phone] Nov, 2014 [facility] [address] [id number] [address] [place] [address], [place] [id number] Nov, 2014 [facility] [address] [id number] [address] [place] [address], [place] [id number] Nov, 2014 [facility] [address] [id number] [address] [place] [address], [place] [id number] Nov, [facility] [address] [id number] [address] [place] [address], [place] [id number] Nov, 2014 [facility] [address] [id number] [address] [place] [id number] Nov, 2014 [facility] [address] [id number] [address] [place] [id number] Oct, 2014 [facility] [address] [id number] [address] [place] [address], [place] [id number] Oct, 2014 [facility] [address] [id number] [address] [place] [phone] Oct, 2014 [facility] [address] [id number] [address] [place] [address], [place] [id number] Oct, 2014 [facility] [address] [id number] [address] [place] [id number] Oct, 2014 [facility] [address] [id number] [address] [place] [phone] Oct, 2014 [facility] [address] [id number] [address] [place] [phone] Oct, 2014 [facility] [address] [id number] [address] [place] [id number] Oct, [facility] [address] [id number] [address] [place] [address], [place] [id number] Oct, [facility] [address] [id number] [address] [place] [address], [place] [id number] Sep, [facility] [address] [id number] [address] [place] [address], [place] [id number] Sep, [facility] [address] [id number] [address] [place] [address], [place] [id number] Sep, [facility] [address] [id number] [address] [place] [address], [place] [id number] Sep, [facility] [address] [id number] [address] [place] [address], [place] [id number] Sep, [facility] [address] [id number] [address] [place] [address], [place] [id number] Sep, [facility] [address] [id number] [address] [place] [address], [place] [id number] Sep, [facility] [address] [id number] [address] [place] [address], [place] [id number] Sep, [facility] [address] [id number] [address] [place] [address], [place] [id number] Sep, [facility] [address] [id number] [address] [place] [address], [place] [id number] Sep, [facility] [address] [id number] [address] [place] [address], [place] [id number] Sep, [facility] [address] [id number] [address] [place] [address], [place] [id number] Sep, [facility] [address] [id number] [address] [place] [address], [place] [id number] Sep, [facility] [address] [id number] [address] [place] [address], [place] [id number] Sep, [facility] [address] [id number] [address] [place] [address] [place] [id number] Sep, [facility] [address] [id number] [address] [place] [address], [place] [id number] Sep, [facility] [address] [id number] [address] [place] [address], [place] [id number] Aug, [facility] [address] [id number] [address] [place] [address], [place] [id number] Aug, [facility] [address] [id number] [address] [place] [address], [place] [id number] Aug, [facility] [address] [id number] [address] [place] [address], [place] [id number] Aug, [facility] [address] [id number] [address] [place] [address], [place] [id number] Aug, [facility] [address] [id number] [address] [place] [address], [place] [id number] Aug, [facility] [address] [id number] [address] [place] [address], [place] [id number] Aug, [facility] [address] [id number] [address] [place] [address], [place] [id number] Aug, [facility] [address] [id number] [address] [place] [address], [place] [id number] Aug, [facility] [address] [id number] [address] [place] [address], [place] [id number] Aug, [facility] [address] [id number] [address] [place] [address], [place] [id number] Aug, [facility] [address] [place] [id number] Aug, [facility] [address] [id number] [address] [place] [address], [place] [id number] Aug, [facility] [address] [id number] [address] [place] [address], [place] [id number] Aug, [facility] [address] [id number] [facility] [place] [id number] 10 Aug, 2014 [facility] [address] [id number] [address] [place] [address], [place] [id number] Aug, [facility] [address] [id number] [address] [place] [address], [place] [id number] Aug, [facility] [address] [id number] [address] [place] [address], [place] [id number] Aug, [facility] [address] [id number] [address] [place] [address], [place] [id number] Aug, [facility] [address] [id number] [address] [place] [address], [place] [id number] Aug, [facility] [address] [id number] [address] [place] [address], [place] [id number] Aug, [facility] [address] [id number] [address] [place] [address], [place] [id number] Aug, [facility] [address] [id number] [address] [place] [address], [place] [id number] Aug, [facility] [address] [id number] [address] [place] [address], [place] [id number] Aug, [facility] [address] [id number] [address] [place] [address], [place] [id number] Aug, [facility] [address] [id number] [address] [place] [address], [place] [id number] Aug, [facility] [address] [id number] [address] [place] [address], [place] [id number] Aug, [facility] [address] [id number] [address] [place] [address], [place] [id number] Aug, [facility] [address] [id number] [address] [place] [address], [place] [id number] Aug, [facility] [address] [id number] [address] [place] [address], [place] [id number] Aug, [facility] [address] [id number] [address] [place] [address], [place] [id number] Jul, [facility] [address] [id number] [address] [place] [address], [place] [id number] Jul, [facility] [address] [id number] [address] [place] [address], [place] [id number] Jul, [facility] [address] [id number] [address] [place] [address], [place] [id number] Jul, [facility] [address] [id number] [address] [place] [address], [place] [id number] Jul, [facility] [address] [id number] [address] [place] [address], [place] [id number] Jul, [facility] [address] [id number] [address] [place] [address], [place] [id number] Jul, [facility] [address] [id number] [address] [place] [address], [place] [id number] Jul, [facility] [address] [id number] [address] [place] [address], [place] [id number] Jul, [facility] [address] [id number] [address] [place] [id number] Jul, [facility] [address] [id number] [address] [place] [address], [place] [id number] Jun, [facility] [address] [id number] [address] [place] [id number] Jun, [facility] [address] [id number] [address] [place] [address], [place] [id number] Jun, [facility] [address] [id number] [address] [place] [address], [place] [id number] Jun, [facility] [address] [id number] [address] [place] [id number] 15 Jun, 2014 [facility] [address] [id number] [address] [place] [id number] 15 Jun, 2014 [facility] [address] [id number] [address] [place] [address], [place] [id number] Jun, [facility] [address] [id number] [address] [place] [address], [place] [id number] Jun, [facility] [address] [id number] [address] [place] [address], [place] [id number] Jun, [facility] [address] [id number] [address] [place] [address], [place] [id number] Jun, [facility] [address] [id number] [address] [place] [address], [place] [id number] 29 May, 2013 [facility] [address] [id number] [address] [place] [address], [place] [id number] 29 Sep, 2013 [facility] [address] [id number] [address] [place] [address], [place] [id number] 26 May, 2013 [facility] [address] [id number] [address] [place] [address], [place] [id number] 26 Sep, 2013 [facility] [address] [id number] [address] [place] [address], [place] [id number] 17 May, 2013 [facility] [address] [id number] [address] [place] [address], [place] [id number] 17 Sep, 2013 [facility] [address] [id number] [address] [place] [address], [place] [id number] 15 Sep, 2013 [facility] [address] [id number] [address] [place] [address], [place] [id number] 15 Sep, 2013 [facility] [address] [id number] [address] [place] [address], [place] [id number] 15 Sep, 2013 [facility] [address] [id number] [address] [place] [address], [place] [id number] 15 Sep, 2013 [facility] [address] [id number] [address] [place] [address], [place] [id number] 10 May, 2013 [facility] [address] [id number] [facility] [place] [id number] 10 May, 2013 [facility] [address] [id number] [address] [place] [id number] May, 2013 [facility] [address] [id number] [address] [place] [id number] May, 2013 [facility] [address] [id number] [address] [place] [id number] May, 2013 [facility] [address] [id number] [address] [place] [id number] May, [facility] [address] [id number] [address] [place] [id number] Apr, [facility] [address] [id number] [address] [place] [address], [place] [id number] Apr, [facility] [address] [id number] [address] [place] [address], [place] [id number] Apr, [facility] [address] [id number] [address] [place] [address], [place] [id number] Apr, [facility] [address] [id number] [address] [place] [address], [place] [id number] Apr, [facility] [address] [id number] [address] [place] [address], [place] [id number] Apr, [facility] [address] [id number] [address] [place] [address], [place] [id number] Apr, [facility] [address] [id number] [address] [place] [address], [place] [id number] Apr, [facility] [address] [id number] [address] [place] [address], [place] [id number] Apr, [facility] [address] [id number] [address] [place] [address], [place] [id number] Apr, [facility] [address] [id number] [address] [place] [address], [place] [id number] Apr, [facility] [address] [id number] [facility] [place] [id number] Apr, [facility] [address] [id number] [address] [place] [address], [place] [id number] Apr, [facility] [address] [id number] [address] [place] [address], [place] [id number] Apr, [facility] [address] [id number] [address] [place] [address], [place] [id number] Apr, [facility] [address] [id number] [address] [place] [address], [place] [id number] Mar, [facility] [address] [id number] [address] [place] [address], [place] [id number] Mar, [facility] [address] [id number] [address] [place] [address], [place] [id number] Mar, [facility] [address] [id number] [address] [place] [address], [place] [id number] Mar, [facility] [address] [id number] [address] [place] [address], [place] [id number] Mar, [facility] [address] [id number] [address] [place] [address], [place] [id number] Mar, [facility] [address] [id number] [address] [place] [address], [place] [id number] Mar, [facility] [address] [id number] [address] [place] [address], [place] [id number] Mar, [facility] [address] [id number] [address] [place] [address], [place] [id number] Mar, [facility] [address] [id number] [address] [place] [address], [place] [id number] Mar, [facility] [address] [id number] [address] [place] [address], [place] [id number] Mar, [facility] [address] [id number] [facility] [id number] Mar, 2013 [facility] [address] [id number] [address] [place] [address], [place] [id number] Mar, 2013 [facility] [address] [id number] [facility] [place] [id number] Mar, 2013 [facility] [address] [id number] [address] [place] [address], [place] [id number] Mar, 2013 [facility] [address] [id number] [address] [place] [address], [place] [id number] Mar, 2013 [facility] [address] [id number] [address] [place] [address], [place] [id number] Mar, 2013 [facility] [address] [id number] [address] [place] [address], [place] [id number] Mar, 2013 [facility] [address] [id number] [address] [place] [address], [place] [id number] Feb, [facility] [address] [id number] [address] [place] [address], [place] [id number] Feb, [facility] [address] [id number] [address] [place] [address], [place] [id number] Feb, [facility] [address] [id number] [address] [place] [address], [place] [id number] Feb, [facility] [address] [id number] [address] [place] [address], [place] [id number] Feb, [facility] [address] [id number] [address] [place] [address], [place] [id number] Feb, [facility] [address] [id number] [address] [place] [address], [place] [id number] Feb, [facility] [address] [id number] [address] [place] [address], [place] [id number] Feb, [facility] [address] [id number] [address] [place] [address], [place] [id number] Feb, [facility] [address] [id number] [facility] [place] [id number] Feb, [facility] [address] [id number] [facility] [place] [id number] Feb, [facility] [address] [id number] [address] [place] [address], [place] [id number] Feb, [facility] [address] [id number] [address] [place] [address], [place] [id number] Feb, [facility] [address] [id number] [address] [place] [address], [place] [id number] Feb, [facility] [address] [id number] [address] [place] [address], [place] [id number] January, [facility] [address] [id number] [address] [place] [address], [place] [id number] January, [facility] [address] [id number] [address] [place] [address], [place] [id number] January, [facility] [address] [id number] [address] [place] [address], [place] [id number] January, [facility] [address] [id number] [address] [place] [address], [place] [id number] January, [facility] [address] [id number] [address] [place] [address], [place] [id number] January, [facility] [address] [id number] [address] [place] [address], [place] [id number] January, [facility] [address] [id number] [address] [place] [address], [place] [id number] January, [facility] [address] [id number] [address] [place] [address], [place] [id number] January, [facility] [address] [id number] [address] [place] [address], [place] [id number] January, [facility] [address] [id number] [address] [place] [address], [place] [id number] January, [facility] [address] [id number] [facility] [place] [id number] January, [facility] [address] [id number] [address] [place] [address], [place] [id number] January, [facility] [address] [id number] [address] [place] [address], [place] [id number] January, [facility] [address] [id number] [address] [place] [address], [place] [id number] Dec, [facility] [address] [id number] [address] [place] [address], [place] [id number] Dec, [facility] [address] [id number] [address] [place] [address], [place] [id number] Dec, [facility] [address] [id number] [address] [place] [address], [place] [id number] Dec, [facility] [address] [id number] [address] [place] [address], [place] [id number] Dec, [facility] [address] [id number] [address] [place] [address], [place] [id number] Dec, [facility] [address] [id number] [address] [place] [address], [place] [id number] Dec, [facility] [address] [id number] [address] [place] [address], [place] [id number] Dec, [facility] [address] [id number] [address] [place] [address], [place] [id number] Dec, [facility] [address] [id number] [address] [place] [address], [place] [id number] Dec, [facility] [address] [id number] [address] [place] [address], [place] [id number] Nov, [facility] [address] [id number] [address] [place] [address], [place] [id number] Nov, [facility] [address] [id number] [facility] [place] [id number] 10 Nov, 2013 [facility] [address] [id number] [address] [place] [address], [place] [id number] 10 Nov, 2013 [facility] [address] [id number] [address] [place] [address], [place] [id number] 08 Nov, 2013 [facility] [address] [id number] [address] [place] [address], [place] [phone] Nov, [facility] [address] [id number] [address] [place] [address], [place] [id number] Nov, [facility] [address] [id number] [address] [place] [address], [place] [id number] Nov, [facility] [address] [id number] [address] [place] [address], [place] [id number] Nov, [facility] [address] [id number] [address] [place] [address], [place] [id number] Nov, [facility] [address] [id number] [address] [place] [address], [place] [id number] Oct, [facility] [address] [id number] [address] [place] [address], [place] [id number] Oct, [facility] [address] [id number] [address] [place] [address], [place] [id number] Oct, [facility] [address] [id number] [address] [place] [address], [place] [id number] Oct, [facility] [address] [id number] [address] [place] [address], [place] [id number] Oct, [facility] [address] [id number] [address] [place] [address], [place] [id number] Oct, [facility] [address] [id number] [address] [place] [address], [place] [id number] 14 Oct, 2013 [facility] [address] [id number] [address] [place] [address], [place] [id number] Oct, [facility] [address] [id number] [address] [place] [address], [place] [id number] Oct, [facility] [address] [id number] [address] [place] [address], [place] [id number] Oct, [facility] [address] [id number] [address] [place] [address], [place] [id number] Oct, [facility] [address] [id number] [address] [place] [address], [place] [id number] Oct, [facility] [address] [id number] [address] [place] [address], [place] [id number] Oct, [facility] [address] [id number] [address] [place] [address], [place] [id number] Oct, [facility] [address] [id number] [address] [place] [address], [place] [id number] Sep, [facility] [address] [id number] [address] [place] [address], [place] [id number] Sep, [facility] [address] [id number] [address] [place] [address], [place] [id number] Sep, [facility] [address] [id number] [address] [place] [address], [place] [id number] Sep, [facility] [address] [id number] [address] [place] [address], [place] [id number] Sep, [facility] [address] [id number] [address] [place] [address], [place] [id number] Sep, [facility] [address] [id number] [address] [place] [address], [place] [id number] Sep, [facility] [address] [id number] [address] [place] [address], [place] [id number] Sep, [facility] [address] [id number] [address] [place] [address], [place] [id number] Sep, [facility] [address] [id number] [address] [place] [address], [place] [id number] Sep, [facility] [address] [id number] [address] [place] [address], [place] [id number] Aug, [facility] [address] [id number] [address] [place] [address], [place] [id number] Aug, [facility] [address] [id number] [address] [place] [address], [place] [id number] Jul, [facility] [address] [id number] [address] [place] [address], [place] [id number] Jul, [facility] [address] [id number] [address] [place] [address], [place] [id number] Jul, [facility] [address] [id number] [address] [place] [address], [place] [id number] Jul, [facility] [address] [id number] [address] [place] [address], [place] [id number] Jul, [facility] [address] [id number] [address] [place] [address], [place] [id number] Jul, [facility] [address] [id number] [address] [place] [address], [place] [id number] Jul, [facility] [address] [id number] [address] [place] [address], [place] [id number] Jul, [facility] [address] [id number] [address] [place] [address], [place] [id number] Jul, [facility] [address] [id number] [address] [place] [address], [place] [id number] Jul, [facility] [address] [id number] [address] [place] [address], [place] [id number] Jul, [facility] [address] [id number] [address] [place] [address], [place] [id number] Jul, [facility] [address] [id number] [address] [place] [address], [place] [id number] Jul, [facility] [address] [id number] [address] [place] [address], [place] [id number] Jul, 2012 [facility] [address] [id number] [address] [place] [address], [place] [id number] Jul, [facility] [address] [id number] [address] [place] [address], [place] [id number] Jul, 2012 [facility] [address] [id number] [address] [place] [id number] Jul, [facility] [address] [id number] [address] [place] [address], [place] [id number] Jul, [facility] [address] [id number] [address] [place] [id number] Jul, [facility] [address] [id number] [address] [place] [address], [place] [id number] Jun, 2012 [facility] [address] [id number] [address] [place] [id number] 16 Jun, 2012 [facility] [address] [id number] [address] [place] [id number] 16 Jun, 2012 [facility] [address] [id number] [address] [place] [id number] 16 Jun, 2012 [facility] [address] [id number] [address] [place] [id number] 16 Jun, 2012 [facility] [address] [id number] [address] [place] [id number] 16 Jun, 2012 [facility] [address] [id number] [address] [place] [address], [place] [id number] 10 Jun, 2012 [facility] [address] [id number] [address] [place] [id number] 10 Jun, 2012 [facility] [address] [id number] [address] [place] [id number] 09 Jun, 2013 [facility] [address] [id number] [address] [place] [address], [place] [id number] Jun, [facility] [address] [id number] [address] [place] [address], [place] [id number] Jun, [facility] [address] [id number] [address] [place] [address], [place] [id number] May, [facility] [address] [id number] [address] [place] [address], [place] [id number] 25 May, 2012 [facility] [address] [id number] [address] [place] [address], [place] [id number] 19 May, 2012 [facility] [address] [id number] [address] [place] [address], [place] [id number] 17 May, 2013 [facility] [address] [id number] [address] [place] [address], [place] [id number] May, [facility] [address] [id number] [address] [place] [address], [place] [id number] May, [facility] [address] [id number] [address] [place] [address], [place] [id number] May, [facility] [address] [id number] [address] [place] [address], [place] [id number] May, [facility] [address] [id number] [address] [place] [address], [place] [id number] Apr, [facility] [address] [id number] [address] [place] [address], [place] [id number] Apr, [facility] [address] [id number] [address] [place] [address], [place] [id number] Apr, [facility] [address] [id number] [address] [place] [address], [place] [id number] Apr, [facility] [address] [id number] [address] [place] [address], [place] [id number] Apr, [facility] [address] [id number] [address] [place] [address], [place] [id number] Mar, [facility] [address] [id number] [address] [place] [address], [place] [id number] Mar, [facility] [address] [id number] [address] [place] [address], [place] [id number] Mar, [facility] [address] [id number] [address] [place] [address], [place] [id number] Mar, [facility] [address] [id number] [address] [place] [address], [place] [id number] Mar, [facility] [address] [id number] [address] [place] [address], [place] [id number] Mar, [facility] [address] [id number] [address] [place] [address], [place] [id number] Mar, [facility] [address] [id number] [address] [place] [address], [place] [id number] Mar, [facility] [address] [id number] [address] [place] [address], [place] [id number] Feb, [facility] [address] [id number] [address] [place] [address], [place] [id number] Feb, [facility] [address] [id number] [address] [place] [address], [place] [id number] January, [facility] [address] [id number] [address] [place] [address], [place] [id number] January, [facility] [address] [id number] [address] [place] [address], [place] [id number] Dec, [facility] [address] [id number] [address] [place] [address], [place] [id number] Dec, [facility] [address] [id number] [address] [place] [address], [place] [id number] Nov, [facility] [address] [id number] [address] [place] [address], [place] [id number] Nov, [facility] [address] [id number] [address] [place] [address], [place] [id number] Nov, [facility] [address] [id number] [address] [place] [address], [place] [id number] Nov, [facility] [address] [id number] [address] [place] [address], [place] [id number] 27 Oct, 2012 [facility] [address] [id number] [address] [place] [address], [place] [id number] Oct, [facility] [address] [id number] [address] [place] [address], [place] [id number] Oct, [facility] [address] [id number] [address] [place] [address], [place] [id number] 26 Oct, 2012 [facility] [address] [id number] [address] [place] [address], [place] [id number] 16 Oct, 2012 [facility] [address] [id number] [address] [place] [address], [place] [id number] 14 Oct, 2012 [facility] [address] [id number] [address] [place] [address], [place] [id number] 08 Oct, 2012 [facility] [address] [id number] [address] [place] [address], [place] [id number] 07 Oct, 2012 [facility] [address] [id number] [address] [place] [address], [place] [id number] 03 Oct, 2012 [facility] [address] [id number] [address] [place] [address], [place] [id number] 30 Sep, 2012 [facility] [address] [id number] [address] [place] [address], [place] [id number] Sep, [facility] [address] [id number] [address] [place] [address], [place] [id number] Sep, [facility] [address] [id number] [address] [place] [address], [place] [id number] Sep, [facility] [address] [id number] [address] [place] [address], [place] [id number] 17 Sep, 2012 [facility] [address] [id number] [address] [place] [address], [place] [id number] 10 Sep, 2012 [facility] [address] [id number] [address] [place] [address], [place] [id number] Sep, [facility] [address] [id number] [address] [place] [address], [place] [id number] Sep, [facility] [address] [id number] [address] [place] [address], [place] [id number] Aug, [facility] [address] [id number] [address] [place] [address], [place] [id number] Aug, [facility] [address] [id number] [address] [place] [address], [place] [id number] Aug, [facility] [address] [id number] [address] [place] [address], [place] [id number] Aug, [facility] [address] [id number] [address] [place] [address], [place] [id number] Aug, [facility] [address] [id number] [address] [place] [address], [place] [id number] Aug, [facility] [address] [id number] [address] [place] [address], [place] [id number] Aug, [facility] [address] [id number] [address] [place] [address], [place] [id number] Aug, [facility] [address] [id number] [address] [place] [address], [place] [id number] Jul, [facility] [address] [id number] [address] [place] [address], [place] [id number] Jul, [facility] [address] [id number] [address] [place] [address], [place] [id number] Jul, [facility] [address] [id number] [address] [place] [address], [place] [id number] Jul, [facility] [address] [id number] [address] [place] [address], [place] [id number] Jul, [facility] [address] [id number] [address] [place] [address], [place] [id number] Jul, [facility] [address] [id number] [address] [place] [address], [place] [id number] Jun, [facility] [address] [id number] [address] [place] [address], [place] [id number] Jun, [facility] [address] [id number] [address] [place] [address], [place] [id number] Jun, [facility] [address] [id number] [address] [place] [address], [place] [id number] Jun, [facility] [address] [id number] [address] [place] [address], [place] [id number] Jun, [facility] [address] [id number] [address] [place] [address], [place] [id number] Jun, [facility] [address] [id number] [address] [place] [address], [place] [id number] Jun, [facility] [address] [id number] [address] [place] [address], [place] [id number] Jun, [facility] [address] [id number] [address] [place] [address], [place] [id number] 10 Jun, 2012 [facility] [address] [id number] [address] [place] [address], [place] [id number] 26 May, 2012 [facility] [address] [id number] [address] [place] [address], [place] [id number] 24 May, 2012 [facility] [address] [id number] [address] [place] [address], [place] [id number] 18 May, 2012 [facility] [address] [id number] [address] [place] [address], [place] [id number] 30 Apr, 2012 [facility] [address] [id number] [address] [place] [address], [place] [id number] Apr, [facility] [address] [id number] [facility] [place] [id number] 18 Apr, 2012 [facility] [address] [id number] [address] [place] [address], [place] [id number] 14 Apr, 2012 [facility] [address] [id number] [address] [place] [address], [place] [id number] Apr, [facility] [address] [id number] [address] [place] [address], [place] [id number] Apr, [facility] [address] [id number] [address] [place] [address], [place] [id number] Mar, [facility] [address] [id number] [address] [place] [address], [place] [id number] Mar, [facility] [address] [id number] [address] [place] [address], [place] [id number] Mar, [facility] [address] [id number] [address] [place] [address], [place] [id number] Mar, [facility] [address] [id number] [address] [place] [address], [place] [id number] Feb, [facility] [address] [id number] [address] [place] [address], [place] [id number] Feb, [facility] [address] [id number] [address] [place] [address], [place] [id number] Feb, [facility] [address] [id number] [address] [place] [address], [place] [id number] Feb, [facility] [address] [id number] [address] [place] [address], [place] [id number] Feb, [facility] [address] [id number] [address] [place] [address], [place] [id number] January, [facility] [address] [id number] [address] [place] [address], [place] [id number] January, [facility] [address] [id number] [address] [place] [address], [place] [id number] January, [facility] [address] [id number] [address] [place] [address], [place] [id number] January, [facility] [address] [id number] [address] [place] [address], [place] [id number] January, [facility] [address] [id number] [address] [place] [address], [place] [id number] January, [facility] [address] [id number] [address] [place] [address], [place] [id number] Dec, [facility] [address] [id number] [address] [place] [address], [place] [id number] Dec, [facility] [address] [id number] [address] [place] [address], [place] [id number] Dec, [facility] [address] [id number] [address] [place] [address], [place] [id number] Dec, [facility] [address] [id number] [address] [place] [address], [place] [id number] Dec, [facility] [address] [id number] [address] [place] [address], [place] [id number] Nov, [facility] [address] [id number] [address] [place] [address], [place] [id number] Nov, [facility] [address] [id number] [address] [place] [address], [place] [id number] Nov, [facility] [address] [id number] [address] [place] [address], [place] [id number] Nov, [facility] [address] [id number] [address] [place] [address], [place] [id number] Oct, [facility] [address] [id number] [address] [place] [address], [place] [id number] Oct, [facility] [address] [id number] [address] [place] [address], [place] [id number] Oct, [facility] [address] [id number] [address] [place] [address], [place] [id number] Oct, [facility] [address] [id number] [address] [place] [address], [place] [id number] Oct, [facility] [address] [id number] [address] [place] [address], [place] [id number] Sep, [facility] [address] [id number] [address] [place] [address], [place] [id number] Sep, [facility] [address] [id number] [address] [place] [address], [place] [id number] Sep, [facility] [address] [id number] [address] [place] [address], [place] [id number] Sep, [facility] [address] [id number] [address] [place] [address], [place] [id number] Sep, [facility] [address] [id number] [address] [place] [address], [place] [id number] Sep, [facility] [address] [id number] [address] [place] [address], [place] [id number] Aug, [facility] [address] [id number] [address] [place] [address], [place] [id number] Aug, [facility] [address] [id number] [address] [place] [address], [place] [id number] Aug, [facility] [address] [id number] [address] [place] [address], [place] [id number] Jul, [facility] [address] [id number] [address] [place] [address], [place] [id number] Jul, [facility] [address] [id number] [address] [place] [address], [place] [id number] Jul, [facility] [address] [id number] [address] [place] [address], [place] [id number] Jul, [facility] [address] [id number] [address] [place] [address], [place] [id number] Jun, [facility] [address] [id number] [address] [place] [address], [place] [id number] 31 Jun, 2011 [facility] [address] [id number] [address] [place] [address], [place] [id number] 18 Jun, 2011 [facility] [address] [id number] [address] [place] [address], [place] [id number] 10 Jun, 2011 [facility] [address] [id number] [address] [place] [address], [place] [id number] 10 Jun, 2011 [facility] [address] [id number] [address] [place] [address], [place] [id number] 10 Jun, 2011 [facility] [address] [id number] [address] [place] [address], [place] [id number] 11 Mar, 2011 [facility] [address] [id number] [address] [place] [address], [place] [id number] 18 Dec, 2010 [facility] [address] [id number] [address] [place] [address], [place] [id number] 11 Dec, 2010 [facility] [address] [id number] [address] [place] [address], [place] [id number] Nov, [facility] [address] [id number] [address] [place] [id number] 16 Nov, 2010 [facility] [address] [id number] [address] [place] [address], [place] [id number] Sep, [facility] [address] [id number] [address] [place] [address], [place] [id number] Aug, [facility] [address] [id number] [address] [place] [address], [place] [id number] Aug, [facility] [address] [id number] [address] [place] [address], [place] [id number] Aug, [facility] [address] [id number] [address] [place] [address], [place] [id number] Aug, [facility] [address] [id number] [address] [place] [id number] 27 Aug, 2010 [facility] [address] [id number] [address] [place] [address], [place] [id number] 14 Aug, 2010 [facility] [address] [id number] [address] [place] [id number] 08 Aug, 2010 [facility] [address] [id number] [address] [place] [address], [place] [id number] 08 Aug, 2010 [facility] [address] [id number] [address] [place] [address], [place] [id number] 07 Aug, 2010 [facility] [address] [id number] [address] [place] [address], [place] [id number] 06 Aug, 2010 [facility] [address] [id number] [address] [place] [address], [place] [id number] 06 Aug, 2010 [facility] [address] [id number] [address] [place] [id number] Aug, [facility] [address] [id number] [address] [place] [id number] 30 Jul, 2010 [facility] [address] [id number] [address] [place] [id number] 30 Jul, 2010 [facility] [address] [id number] [address] [place] [id number] 30 Jul, 2010 [facility] [address] [id number] [address] [place] [id number] 17 Jul, 2010 [facility] [address] [id number] [address] [place] [id number] 08 Jul, 2010 [facility] [address] [id number] [address] [place] [id number] Jul, [facility] [address] [id number] [address] [place] [id number] 24 Jun, 2010 [facility] [address] [id number] [address] [place] [id number] Jun, [facility] [address] [id number] [address] [place] [address], [place] [id number] 19 Jun, 2010 [facility] [address] [id number] [address] [place] [address], [place] [id number] 13 Jun, 2010 [facility] [address] [id number] [address] [place] [address], [place] [id number] 16 Apr, 2010 [facility] [address] [id number] [address] [place] [address], [place] [id number] 20 Mar, 2010 [facility] [address] [id number] [address] [place] [address], [place] [id number] 17 Feb, 2010 [facility] [address] [id number] [address] [place] [address], [place] [id number] January, [facility] [address] [id number] [address] [place] [address], [place] [id number] 15 Dec, 2009 [facility] [address] [id number] [address] [place] [address], [place] [id number] Nov, [facility] [address] [id number] [address] [place] [address], [place] [id number] 31 Aug, 2009 [facility] [address] [id number] [address] [place] [address], [place] [id number] 23 Aug, 2009 [facility] [address] [id number] [address] [place] [address], [place] [id number] 07 Aug, 2009 [facility] [address] [id number] [address] [place] [address], [place] [id number] Jul, [facility] [address] [id number] [address] [place] [address], [place] [id number] Jul, [facility] [address] [id number] [address] [place] [address], [place] [id number] 07 Jul, 2009 [facility] [address] [id number] [address] [place] [address], [place] [id number] 30 Jun, 2009 [facility] [address] [id number] [address] [place] [address] [address] Jun, [facility] [place] [address] [id number] [address] [place] [phone] Jun, [facility] [place] [address] [id number] [address] [place] [phone] Jun, [facility] [place] [address] [id number] [address] [place] [phone] Jun, [facility] [place] [address] [id number] [address] [place] [phone] Jun, [facility] [place] [address] [id number] [address] [place] [phone] Apr, [facility] [place] [address] [id number] [address] [place] [id number] Apr, [facility] [place] [address] [id number] [address] [place] [phone] Feb, [facility] [place] [address] [id number] [address] [place] [phone] January, [facility] [place] [address] [id number] [address] [place] [phone] Dec, IMMUNIZATIONS No Known Immunizations SOCIAL HISTORY Never Assessed REASON FOR VISIT PLAN OF CARE VITAL SIGNS Height 67 in 2013-05-23 Weight 333 lbs 2013-05-23 Temperature 98.9 degrees Fahrenheit 2013-05-23 Heart Rate 80 bpm 2013-05-23 Respiratory Rate 24 2013-05-23 Blood pressure systolic 172 mmHg 2013-05-23 Blood pressure diastolic 108 mmHg 2013-05-23 MEDICATIONS Unknown Medications RESULTS No Results PROCEDURES [...] exam abnormal Medical History Chronic lymphocytic leukemia Medical History stroke Surgical History arthroscopic knee surgery (Right) 1993, 2003 Surgical History carpal tunnel release (Left) 2000 Surgical History EGD ([facility]) 2009 Surgical History colonoscopy 2009 ([facility]), 2013 ([facility] ) Surgical History heart cath: CAD w/ [...] Surgical History 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 inpatient mental health ea rly 1999' Hospitalization History hyperkalemia 10/2017 Hospitalization History fluid in lung Hospitalization History stroke, 02/2020
--- OUTSIDE RECORDS SUMMARY | 2020-04-11 11:01 | XMS REPORT ---
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 Name Role Phone Migration, Doctor Unavailable Unavailable PROBLEMS Type Condition ICD9-CM Code [id number] Code Onset Dates Condition S tatus SNOMED Code Problem Insomnia, unspecified type G47.00 Act sharon [id number] Problem Morbid obesity E66.01 Active 52625 6002 Problem Anxiety F41.9 Active 58333716 Problem Diabetic polyneuropathy associated with type 2 d iabetes mellitus E11.42 Active 44333142 Problem Essential hypertension I10 Active 69304071 Problem Bilateral primary osteoarthritis of knee M17.0 Active 962575295 Problem Polyneuropathy associated with underlying disease G63 Active 526758956 Problem Psychophysiological insomnia F51.04 A ctive 260796742 Problem Leukocytosis D72.829 Active 0167615 06 Problem Chronic diastolic (congestive) heart failure I50.3 2 Active 929604531 Problem Diabetes E11.9 Active 41829760 Problem Bipolar I disorder, most recent episode (or curr ent) mixed, moderate F31.62 Active 46659064 Problem Reactive airway disease J45.909 Active 473027461255 Problem Bipolar disorder, in partial remission, most rec ent episode depressed F31.75 Active 28305801 Problem Falling R29.6 Active 872046978 Problem Primary osteoarthritis of right knee M17.11 Active [id number] Problem Cough R05 Active 69409561 Problem Pure hypercholesterolemia E78.00 Acti ve 118418996 Problem Dysuria R30.0 Active 70120620 Problem Mild cognitive impairment G31.84 Acti ve 659256157 Problem Benign prostatic hyperplasia with lower urinary tract symptoms, unspecified morphology N40.1 Active 29980 6007 Problem Other iron deficiency anemia D50.8 A ctive 23752667 Problem Eustachian tube dysfunction, unspecified laterality H69.80 Active 76645048 Problem Bipolar disorder F31.9 Active 137 39653 Problem Chronic pain G89.29 Active 2777761 1 Problem Skin cancer C44.90 Active 76243106 7 Problem DM neuro manif type II E11.49 Active 77876780 Problem Type 2 diabetes mellitus with diabetic neuropathy, uns pecified E11.40 Active 48809474 Problem half-way (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 Z79.4 Active 524518879 Problem Mood disorder F39 Active 073187 05 Problem Agitation R45.1 Active 901430575 Problem Anemia of chronic illness D63.8 Acti ve 276534382 Problem Lymphocytosis D72.820 Active 878298 09 Problem Dysphagia, unspecified type R13.10 Ac tive 42723574 Problem Retinal edema H35.81 Active 204281 6 Problem Chronic lymphocytic leukemia C91.10 A ctive 75030997 Problem Pressure ulcer of other site, stage 3 L89.893 Active 603830161 Problem 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 Active 647539948 Problem Eye exam abnormal R93.8 Active 16 2289546 Problem Bipolar I disorder, most recent episode depressed, moderat e F31.32 Active 009171379 Problem Gastroesophageal reflux disease without esophagitis K21.9 Active 348316451 Problem Hypokalemia E87.6 Active 57937740 Problem Other secondary acute gout, 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 0 Active 566234103 Problem PVD (peripheral vascular disease) I73.9 Active 578074863 ALLERGIES No Information ENCOUNTERS Encounter Location Date Diagnosis [place] [address] [facility] [id number] [address] [place] [phone] Apr, [facility] [address] [facility] [id number] [address] [place] [id number] Mar, [facility] [address] [facility] [id number] [address] [place] [phone] Mar, [facility] [address] [facility] [id number] [address] [place] [phone] Mar, [facility] [address] [facility] [id number] [address] [place] [id number] Mar, Chronic pain G89.29 [facility] [address] [facility] [id number] [address] [place] [id number] Mar, [facility] [address] [facility] [id number] [address] [place] [id number] 09 Mar, 2020 Bipolar I disorder, most rec ent episode depressed, moderate F31.32 ; Anxiety F41.9 and Mild cognitive impairment G31.84 [facility] [address] [facility] [id number] [address] [place] [id number] Mar, Mood disorder F39 [facility] [address] [facility] [id number] [address] [place] [id number] Mar, Bipolar I disorder, most rec ent episode depressed, moderate F31.32 ; Anxiety F41.9 and Mild cognitive impairment G31.84 [facility] [address] [id number] [address] [place] [address] Feb, Dysphagia, unspecified type R13.10 [place] [address] [facility] [id number] [address] [place] [id number] Feb, Bipolar I disorder, most rec ent episode depressed, moderate F31.32 ; Anxiety F41.9 and Mild cognitive impairment G31.84 [place] [address] [facility] [id number] [address] [place] [id number] Feb, [facility] [address] [facility] [id number] [address] [place] [id number] Feb, Gastroesophageal reflux dise ase without esophagitis K21.9 [facility] [address] [facility] [id number] [address] [place] [id number] Feb, [facility] [address] [facility] [id number] [address] [place] [id number] Feb, Bipolar I disorder, most rec ent episode depressed, moderate F31.32 ; Anxiety F41.9 and Mild cognitive impairment G31.84 [facility] [address] [facility] [id number] [address] [place] [id number] 17 Feb, 2020 Chronic pain G89.29 [place] [address] [facility] [id number] [address] [place] [id number] 17 Feb, 2020 Agitation R45.1 [place] [address] [id number] [address] [place] [id number] 17 Feb, 2020 PVD (peripheral vascular dis ease) I73.9 ; Status post CVA Z86.73 ; Status post carotid endarterectomy Z98.890 ; Vertigo R42 ; Mild cognitive impairment G31.84 ; Type 2 diabetes mellitus with diabetic neuropathy, unspecified E11.40 and Essential hypertension I10 [facility] [address] [id number] [address] [place] [id number] Feb, [facility] [address] [id number] [address] [place] [id number] Feb, [facility] [address] [id number] [address] [place] [id number] January, [facility] [address] [facility] [id number] [address] [place] [address] January, Chronic pain G89.29 [facility] [address] [facility] [id number] [address] [place] [id number] Dec, [facility] [address] [id number] [address] [place] [address] Dec, Chronic pain G89.29 [facility] [address] [facility] [id number] [address] [place] [id number] Dec, [facility] [address] [facility] [id number] [address] [place] [address] Dec, [facility] [address] [facility] [id number] [address] [place] [id number] Dec, Gastroesophageal reflux dise ase without esophagitis K21.9 and Pure hypercholesterolemia E78.00 [facility] [address] [id number] [address] [place] [id number] Dec, Mood disorder F39 [facility] [address] [facility] [id number] [address] [place] [id number] Nov, Other secondary acute gout, 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 [facility] [address] [facility] [id number] [address] [place] [id number] Nov, Gastroesophageal reflux dise ase without esophagitis K21.9 [facility] [address] [id number] [address] [place] [address] Nov, Chronic pain G89.29 [facility] [address] [id number] [address] [place] [address] Nov, Bipolar I disorder, most rec ent episode depressed, moderate F31.32 ; Anxiety F41.9 and Mild cognitive impairment G31.84 [facility] [address] [id number] [address] [place] [id number] Nov, [facility] [address] [facility] [id number] [address] [place] [id number] Nov, Syncope, unspecified syncope type R55 [facility] [address] [facility] [id number] [address] [place] [address] Nov, Mood disorder F39 [facility] [address] [facility] [id number] [address] [place] [address] Oct, Chronic pain G89.29 [facility] [address] [id number] [address] [place] [id number] Oct, [facility] [address] [id number] [address] [place] [id number] Oct, Mood disorder F39 [facility] [address] [facility] [id number] [address] [place] [address] Oct, [facility] [address] [facility] [id number] [address] [place] [id number] Oct, Bipolar disorder, in partial remission, most recent episode depressed F31.75 and Mild cognitive impairment G31.84 [facility] [address] [facility] [id number] [address] [place] [id number] Oct, Mood disorder F39 [facility] [address] [facility] [id number] [address] [place] [id number] Sep, [facility] [address] [id number] [address] [place] [id number] Sep, Mood disorder F39 [facility] [address] [id number] [address] [place] [phone] Sep, Bipolar disorder, in partial remission, most recent episode depressed F31.75 and Mild cognitive impairment G31.84 [facility] [address] [id number] [address] [place] [id number] Sep, Mood disorder F39 [facility] [address] [id number] [address] [place] [id number] Sep, [facility] [address] [id number] [address] [place] [id number] Sep, Mood disorder F39 [facility] [address] [id number] [address] [place] [id number] Sep, [facility] [address] [id number] [address] [place] [id number] Aug, Mood disorder F39 [facility] [address] [id number] [address] [place] [id number] Aug, [facility] [address] [id number] [address] [place] [id number] Aug, [facility] [address] [id number] [address] [place] [id number] Aug, [facility] [address] [id number] [address] [place] [id number] Aug, [facility] [address] [id number] [address] [place] [id number] Aug, [facility] [address] [id number] [address] [place] [id number] Aug, [facility] [address] [id number] [address] [place] [id number] Aug, [facility] [address] [id number] [address] [place] [id number] Aug, Essential hypertension I10 [facility] [address] [id number] [address] [place] [id number] Aug, Bipolar disorder, in partial remission, most recent episode depressed F31.75 and Mild cognitive impairment G31.84 [facility] [address] [id number] [address] [place] [address] Aug, Mood disorder F39 [facility] [address] [id number] [address] [place] [id number] Aug, [facility] [address] [id number] [address] [place] [id number] Aug, Bipolar disorder, in partial remission, most recent episode depressed F31.75 and Mild cognitive impairment G31.84 [facility] [address] [id number] [address] [place] [id number] Jul, Bipolar disorder, in partial remission, most recent episode depressed F31.75 and Mild cognitive impairment G31.84 [facility] [address] [id number] [address] [place] [id number] Jul, Psychophysiological insomnia F51.04 [facility] [address] [id number] [address] [place] [id number] Jul, [facility] [address] [id number] [address] [place] [id number] Jul, [facility] [address] [id number] [address] [place] [id number] Jul, [facility] [address] [id number] [address] [place] [id number] Jul, [facility] [address] [id number] [address] [place] [id number] Jul, [facility] [address] [id number] [address] [place] [id number] Jul, [facility] [address] [id number] [address] [place] [address] Jul, Bipolar disorder, in partial remission, most recent episode depressed F31.75 and Mild cognitive impairment G31.84 [place] [id number] [facility] [id number] [address] [place] [address] Jul, Chronic pain G89.29 ; Diabet es E11.9 ; Essential hypertension I10 ; Ill feeling R68.89 ; Local infection of the skin and subcutaneous tissue, unspecified L08.9 and Other injury of unspecified body region, initial encounter T14.8XXA [place] [address] [facility] [id number] [address] [place] [id number] Jun, Bipolar disorder, in partial remission, most recent episode depressed F31.75 and Mild cognitive impairment G31.84 [place] [id number] [facility] [id number] [address] [place] [address] Jun, [place] [address] [facility] [id number] [address] [place] [id number] Jun, Bipolar disorder, in partial remission, most recent episode depressed F31.75 and Mild cognitive impairment G31.84 [place] [address] [facility] [id number] [address] [place] [id number] Jun, Psychophysiological insomnia F51.04 [place] [address] [facility] [id number] [address] [place] [id number] Jun, Psychophysiological insomnia F51.04 ; Chronic pain G89.29 ; Bipolar I disorder, most recent episode (or current) mixed, moderate F31.62 ; 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 ; Polyneuropathy associated with underlying disease G63 ; Type 2 diabetes mellitus with diabetic neuropathy, unspecified E11.40 ; half-way (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 Z79.4 and Hyperglycemia R73.9 [facility] [address] [facility] [id number] [address] [place] [id number] Jun, Bipolar disorder, in partial remission, most recent episode depressed F31.75 and Mild cognitive impairment G31.84 [place] [address] [id number] [address] [place] [address] Jun, [facility] [address] [id number] [address] [place] [address] Jun, Bipolar disorder F31.9 [facility] [address] [id number] [address] [place] [id number] May, Bipolar disorder, in partial remission, most recent episode depressed F31.75 and Mild cognitive impairment G31.84 [facility] [address] [id number] [address] [place] [id number] May, [facility] [address] [id number] [address] [place] [address] Apr, Chronic pain G89.29 and Bipo lar disorder F31.9 [facility] [address] [id number] [address] [place] [id number] Mar, Bipolar disorder F31.9 and C hronic pain G89.29 [facility] [address] [id number] [address] [place] [id number] Feb, Bipolar disorder F31.9 [facility] [address] [facility] [id number] [address] [place] [address] Feb, Cellulitis of right upper ex tremity L03.113 and Skin abrasion T14.8XXA [facility] [address] [id number] [address] [place] [address] Feb, Bipolar disorder, in partial remission, most recent episode depressed F31.75 and Mild cognitive impairment G31.84 [facility] [address] [id number] [address] [place] [id number] Feb, Chronic pain G89.29 [facility] [address] [facility] [id number] [address] [place] [id number] Feb, Bipolar disorder, in partial remission, most recent episode depressed F31.75 and Mild cognitive impairment G31.84 [facility] [address] [facility] [id number] [address] [place] [address] January, Bipolar disorder, in partial remission, most recent episode depressed F31.75 and Mild cognitive impairment G31.84 [facility] [address] [id number] [address] [place] [id number] January, Chronic pain G89.29 and Bipo lar disorder F31.9 [facility] [address] [id number] [address] [place] [id number] January, Bipolar disorder, in partial remission, most recent episode depressed F31.75 and Mild cognitive impairment G31.84 [facility] [address] [id number] [address] [place] [address] Dec, [facility] [address] [id number] [address] [place] [id number] Dec, Chronic pain G89.29 and Bipo lar disorder F31.9 [facility] [address] [id number] [address] [place] [id number] Dec, Edema of both lower extremit ies R60.0 [facility] [address] [id number] [address] [place] [id number] Dec, Bipolar disorder F31.9 [facility] [address] [id number] [address] [place] [id number] Dec, Bipolar disorder, in partial remission, most recent episode depressed F31.75 and Mild cognitive impairment G31.84 [facility] [address] [id number] [address] [place] [id number] Nov, [facility] [address] [id number] [address] [place] [id number] Nov, Chronic pain G89.29 [facility] [address] [id number] [address] [place] [id number] Nov, Bipolar disorder, in partial remission, most recent episode depressed F31.75 and Mild cognitive impairment G31.84 [facility] [address] [id number] [address] [place] [id number] Nov, Bipolar disorder F31.9 [place] [id number] [place] [id number] 04 Nov, 2018 Encounter for Medicare hilary [...] unspecified morphology N40.1 and Essential hypertension I10 [address] [id number] Oct, Chronic pain G89.[address] [id number] 18 Oct, 2018 Diabetes E11.9 [place] [address] [place] [id number] [place] [address] Oct, Bipolar I disorder, most rec ent episode (or current) mixed, moderate F31.62 and Mild cognitive impairment G31.84 [place] [address] [place] [id number] [address] [place] [id number] Oct, Bipolar I disorder, most rec ent episode (or current) mixed, moderate F31.62 and Mild cognitive impairment G31.84 [place] [address] [place] [id number] [address] [place] [id number] Sep, Bipolar I disorder, most rec ent episode (or current) mixed, moderate F31.62 and Mild cognitive impairment G31.84 [place] [address] [place] [id number] [address] [place] [id number] Sep, [place] [id number] [address] [place] [id number] Sep, Diabetes E11.9 ; Hypoxia R09 .02 ; Hyperglycemia R73.9 ; Therapeutic drug monitoring Z51.81 ; BMI 50.0-59.9, adult Z68.43 and Skin cancer C44.90 [place] [address] [facility] [id number] [address] [place] [id number] Sep, Chronic pain G89.29 [facility] [address] [facility] [id number] [address] [place] [address] Sep, Bipolar I disorder, most rec ent episode (or current) mixed, moderate F31.62 [place] [address] [facility] [id number] [address] [place] [address] Sep, [place] [address] [place] [id number] [address] [place] [id number] Sep, [place] [address] [place] [id number] [address] [place] [address] Aug, Chronic pain G89.29 [place] [address] [place] [id number] [address] [place] [id number] Aug, Bipolar I disorder, most rec ent episode (or current) mixed, moderate F31.62 [place] [address] [place] [id number] [address] [place] [id number] Aug, Bipolar I disorder, most rec ent episode (or current) mixed, moderate F31.62 and Mild cognitive impairment G31.84 [place] [address] [place] [id number] [address] [place] [id number] Jul, [place] [address] [facility] [id number] [address] [place] [id number] Jul, Chronic pain G89.29 [place] [address] [place] [id number] [address] [place] [id number] Jul, Bipolar I disorder, most rec ent episode (or current) mixed, moderate F31.62 and Mild cognitive impairment G31.84 [place] [address] [place] [id number] [address] [place] [id number] Jul, Bipolar I disorder, most rec ent episode (or current) mixed, moderate F31.62 and MCI (mild cognitive impairment) G31.84 [facility] [address] [id number] [address] [place] [id number] Jul, [facility] [address] [id number] [address] [place] [id number] Jul, [facility] [address] [id number] [address] [place] [id number] Jul, Bipolar I disorder, most rec ent episode (or current) mixed, moderate F31.62 [facility] [address] [id number] [address] [place] [id number] Jul, Chronic pain G89.29 [facility] [address] [id number] [address] [place] [id number] Jun, Bipolar I disorder, most rec ent episode (or current) mixed, moderate F31.62 [facility] [address] [id number] [address] [place] [id number] Jun, Pre-procedure lab exam Z01.8 12 [facility] [address] [facility] [id number] [address] [place] [phone] Jun, [facility] [address] [id number] [place] [id number] Jun, [facility] [address] [facility] [id number] [address] [place] [id number] Jun, [facility] [address] [id number] [address] [place] [address] Jun, Forgetfulness R68.89 ; Pre-s yncope R55 ; Localized edema R60.0 ; Other iron deficiency anemia D50.8 and BMI 50.0-59.9, adult Z68.43 [facility] [address] [id number] [address] [place] [id number] Jun, Chronic pain G89.29 [facility] [address] [facility] [id number] [address] [place] [id number] Jun, Chronic pain G89.29 [facility] [address] [facility] [id number] [address] [place] [id number] Jun, Bipolar I disorder, most rec ent episode (or current) mixed, moderate F31.62 [facility] [address] [facility] [id number] [address] [place] [id number] May, Chronic pain G89.29 [facility] [address] [facility] [id number] [address] [place] [id number] Apr, [facility] [address] [facility] [id number] [address] [place] [id number] Apr, Chronic pain G89.29 [facility] [address] [facility] [id number] [address] [place] [id number] Apr, Primary osteoarthritis of ri ght knee M17.11 [place] [address] [place] [id number] [address] [place] [id number] Mar, [facility] [address] [facility] [id number] [address] [place] [id number] Mar, BMI 50.0-59.9, adult Z68.43 and Bipolar disorder, in partial remission, most recent episode depressed F31.75 [place] [address] [place] [id number] [address] [place] [id number] Mar, Diabetes E11.9 ; Pure hyperc holesterolemia E78.00 ; Essential hypertension I10 ; Nausea with vomiting, unspecified R11.2 and Headache, unspecified headache type R51 [facility] [address] [facility] [id number] [address] [place] [id number] Mar, Bipolar I disorder, most rec ent episode (or current) mixed, moderate F31.62 [place] [address] [facility] [id number] [address] [place] [id number] Mar, Bipolar I disorder, most rec ent episode (or current) mixed, moderate F31.62 [place] [address] [id number] [address] [place] [id number] Mar, Chronic pain G89.29 [facility] [address] [id number] [address] [place] [id number] Mar, Bipolar I disorder, most rec ent episode (or current) mixed, moderate F31.62 [facility] [address] [facility] [id number] [address] [place] [id number] Feb, Bipolar I disorder, most rec ent episode (or current) mixed, moderate F31.62 [facility] [address] [facility] [id number] [address] [place] [id number] Feb, Chronic pain G89.29 [facility] [address] [facility] [id number] [address] [place] [id number] Feb, Decubitus ulcer of right josselin t, stage 3 L89.893 and BMI 50.0-59.9, adult Z68.43 [facility] [address] [facility] [id number] [address] [place] [id number] Feb, Bipolar I disorder, most rec ent episode (or current) mixed, moderate F31.62 [facility] [address] [facility] [id number] [address] [place] [id number] Feb, [facility] [address] [facility] [id number] [address] [place] [id number] January, [facility] [address] [facility] [id number] [address] [place] [id number] January, Chronic pain G89.29 [facility] [address] [id number] [address] [place] [id number] January, Bipolar I disorder, most rec ent episode (or current) mixed, moderate F31.62 [facility] [address] [facility] [id number] [address] [place] [phone] January, Bipolar I disorder, most rec ent episode (or current) mixed, moderate F31.62 [facility] [address] [place] [id number] [address] [place] [id number] Dec, Bipolar I disorder, most rec ent episode (or current) mixed, moderate F31.62 and BMI 50.0-59.9, adult Z68.43 [place] [address] [address] Dec, Bipolar I disorder, most rec ent episode (or current) mixed, moderate F31.62 [place] [address] [address] Dec, Chronic pain G89.29 [place] [address] [address] Dec, DM neuro manif type II E11.4 9 ; Right flank pain R10.9 ; half-way current use of opiate analgesic Z79.891 ; Encounter for medication monitoring Z51.81 and BMI 50.0-59.9, adult Z68.43 [place] [address] [address] Dec, Bipolar I disorder, most rec ent episode (or current) mixed, moderate F31.62 [place] [address] [address] Nov, Bipolar I disorder, most rec ent episode (or current) mixed, moderate F31.62 [place] [address] [place] [id number] [address] [place] [address] Nov, Chronic pain G89.29 [place] [address] [place] [id number] [place] [address] Nov, Bipolar I disorder, most rec ent episode (or current) mixed, moderate F31.62 [place] [address] [id number] Nov, Hypokalemia E87.6 [place] [address] [place] [id number] [place] [phone] Nov, Bipolar I disorder, most rec ent episode (or current) mixed, moderate F31.62 [facility] [address] [facility] [id number] [address] [place] [id number] Oct, Chronic pain G89.29 [facility] [address] [facility] [id number] [address] [place] [address] Oct, BMI 50.0-59.9, adult Z68.43 and Bipolar I disorder, most recent episode (or current) mixed, moderate F31.62 [facility] [address] [facility] [id number] [address] [place] [id number] Oct, Bipolar I disorder, most rec ent episode (or current) mixed, moderate F31.62 [place] [address] [facility] [id number] [address] [place] [id number] Oct, [place] [address] [place] [id number] [place] [address] Oct, Hypokalemia E87.6 [place] [address] [facility] [id number] [address] [place] [id number] Oct, DM neuro manif type II E11.4 9 [place] [address] [facility] [id number] [place] [address] Oct, Bipolar I disorder, most rec ent episode (or current) mixed, moderate F31.62 [place] [address] [place] [id number] [address] [place] [id number] Oct, Bipolar I disorder, most rec ent episode (or current) mixed, moderate F31.62 [place] [address] [facility] [id number] [address] [place] [phone] 14 Oct, 2017 Hyperkalemia E87.5 ; Falling R29.6 ; BMI 50.0-59.9, adult Z68.43 and Acute left ankle pain M25.572 [place] [address] [facility] [id number] [address] [place] [address] Oct, DM neuro manif type II E11.4 9 [place] [address] [address] Oct, [place] [address] [address] Sep, Chronic pain G89.29 [place] [address] [address] Sep, [place] [address] [address] Sep, Bilateral primary osteoarthr itis of knee M17.0 [place] [address] [address] Sep, Generalized edema R60.1 [place] [address] [address] Sep, Bipolar I disorder, most rec ent episode (or current) mixed, moderate F31.62 [place] [address] [address] Sep, Hypoxia R09.02 ; Other hyper volemia E87.79 ; Diabetes E11.9 ; Retinal edema H35.81 ; Hypokalemia E87.6 ; 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 ; Anemia of chronic illness D63.8 and BMI 50.0- 59.9, adult Z68.43 [place] [address] [address] Sep, [place] [address] [address] Sep, Bipolar I disorder, most rec ent episode (or current) mixed, moderate F31.62 [place] [address] [address] Aug, Chronic pain G89.29 [place] [address] [address] Aug, Generalized edema R60.1 [facility] [address] [facility] [id number] [address] [place] [id number] Aug, [facility] [address] [facility] [id number] [address] [place] [id number] Aug, [facility] [address] [place] [id number] [address] [place] [address] Aug, Bipolar I disorder, most rec ent episode (or current) mixed, moderate F31.62 [facility] [address] [facility] [id number] [address] [place] [id number] Aug, Bipolar I disorder, most rec ent episode (or current) mixed, moderate F31.62 [facility] [address] [place] [id number] [address] [place] [address] Aug, Chronic pain G89.29 [facility] [address] [place] [id number] [address] [place] [id number] Jul, Bipolar I disorder, most rec ent episode (or current) mixed, moderate F31.62 [facility] [address] [place] [id number] [address] [place] [id number] Jul, Bipolar I disorder, most rec ent episode (or current) mixed, moderate F31.62 and BMI 60.0-69.9, adult Z68.44 [facility] [address] [place] [id number] [address] [place] [id number] Jul, Bipolar I disorder, most rec ent episode (or current) mixed, moderate F31.62 [facility] [address] [facility] [id number] [address] [place] [id number] Jul, Chronic pain G89.29 [facility] [address] [facility] [id number] [address] [place] [id number] Jul, Bipolar I disorder, most rec ent episode (or current) mixed, moderate F31.62 [facility] [address] [place] [id number] [address] [place] [id number] Jun, Polyneuropathy associated wi th underlying disease G63 and Diabetes E11.9 [facility] [address] [id number] [address] [place] [id number] Jun, Bipolar I disorder, most rec ent episode (or current) mixed, moderate F31.62 [facility] [address] [id number] [address] [place] [id number] 09 Jun, 2017 Chronic pain G89.29 [facility] [address] [id number] [address] [place] [id number] May, Bipolar I disorder, most rec ent episode (or current) mixed, moderate F31.62 [facility] [address] [facility] [id number] [address] [place] [id number] May, Bipolar I disorder, most rec ent episode (or current) mixed, moderate F31.62 [facility] [address] [facility] [id number] [address] [place] [id number] May, Diabetic polyneuropathy asso ciated with type 2 diabetes mellitus E11.42 [facility] [address] [id number] [address] [place] [id number] 18 May, 2017 Bipolar I disorder, most rec ent episode (or current) mixed, moderate F31.62 [facility] [address] [facility] [id number] [address] [place] [id number] May, Bipolar I disorder, most rec ent episode (or current) mixed, moderate F31.62 [facility] [address] [id number] [address] [place] [id number] May, Chronic pain G89.29 [facility] [address] [id number] [address] [place] [id number] Apr, Bipolar I disorder, most rec ent episode (or current) mixed, moderate F31.62 [facility] [address] [id number] [address] [place] [id number] Apr, [facility] [address] [facility] [id number] [address] [place] [address] Apr, Chronic pain G89.29 and DM n euro manif type II E11.49 [facility] [address] [facility] [id number] [address] [place] [id number] Apr, [facility] [address] [facility] [id number] [address] [place] [id number] Apr, Bipolar I disorder, most rec ent episode (or current) mixed, moderate F31.62 [facility] [address] [facility] [id number] [address] [place] [address] Apr, Chronic pain G89.29 [facility] [address] [facility] [id number] [address] [place] [id number] Apr, Iliotibial band syndrome, le ft M76.32 [facility] [address] [facility] [id number] [address] [place] [id number] Apr, Bipolar I disorder, most rec ent episode (or current) mixed, moderate F31.62 [facility] [address] [facility] [id number] [address] [place] [id number] Mar, Bipolar I disorder, most rec ent episode (or current) mixed, moderate F31.62 [facility] [address] [facility] [id number] [address] [place] [id number] Mar, Bipolar I disorder, most rec ent episode (or current) mixed, moderate F31.62 [facility] [address] [facility] [id number] [address] [place] [id number] Mar, [facility] [address] [facility] [id number] [address] [place] [id number] Mar, Bipolar I disorder, most rec ent episode (or current) mixed, moderate F31.62 [facility] [address] [facility] [id number] [address] [place] [id number] Mar, Chronic pain G89.29 [facility] [address] [facility] [id number] [address] [place] [id number] Mar, Bipolar I disorder, most rec ent episode (or current) mixed, moderate F31.62 [facility] [address] [id number] [address] [place] [id number] Mar, Bipolar I disorder, most rec ent episode (or current) mixed, moderate F31.62 [facility] [address] [id number] [address] [place] [address] Mar, Acute pain of left knee M25. 562 ; Left hip pain M25.552 ; Generalized edema R60.1 and Tongue swelling R22.0 [facility] [address] [id number] [address] [place] [id number] Mar, [facility] [address] [id number] [address] [place] [address] Feb, Chronic pain G89.29 [facility] [address] [facility] [id number] [address] [place] [address] Feb, Diabetes E11.9 [facility] [address] [id number] [address] [place] [id number] January, Chronic pain G89.29 [facility] [address] [facility] [id number] [address] [place] [id number] January, [facility] [address] [id number] [address] [place] [id number] January, Bipolar I disorder, most rec ent episode (or current) mixed, moderate F31.62 [facility] [address] [id number] [address] [place] [id number] Dec, Bipolar I disorder, most rec ent episode (or current) mixed, moderate F31.62 [facility] [address] [id number] [address] [place] [address] Dec, Chronic pain G89.29 [facility] [address] [facility] [id number] [address] [place] [id number] Dec, Bipolar I disorder, most rec ent episode (or current) mixed, moderate F31.62 [facility] [address] [id number] [address] [place] [address] Dec, Diabetes E11.9 ; Essential h ypertension I10 ; Chronic pain G89.29 and Morbid obesity E66.01 [facility] [address] [id number] [address] [place] [id number] Dec, [facility] [address] [facility] [id number] [address] [place] [id number] Dec, Bipolar I disorder, most rec ent episode (or current) mixed, moderate F31.62 [facility] [address] [id number] [address] [place] [id number] Dec, Bipolar I disorder, most rec ent episode (or current) mixed, moderate F31.62 [facility] [address] [facility] [id number] [address] [place] [address] Nov, Chronic pain G89.29 [facility] [address] [facility] [id number] [address] [place] [id number] Nov, Bipolar I disorder, most rec ent episode (or current) mixed, moderate F31.62 [facility] [address] [facility] [id number] [address] [place] [id number] Nov, [facility] [address] [facility] [id number] [address] [place] [id number] Nov, Bipolar I disorder, most rec ent episode (or current) mixed, moderate F31.62 [facility] [address] [facility] [id number] [address] [place] [id number] Nov, Bipolar I disorder, most rec ent episode (or current) mixed, moderate F31.62 [facility] [address] [facility] [id number] [address] [place] [id number] Nov, [facility] [address] [facility] [id number] [address] [place] [id number] Nov, [facility] [address] [facility] [id number] [address] [place] [id number] Nov, [facility] [address] [facility] [id number] [address] [place] [id number] Oct, Chronic pain G89.29 [facility] [address] [facility] [id number] [address] [place] [address] Oct, Bipolar I disorder, most rec ent episode (or current) mixed, moderate F31.62 [facility] [address] [facility] [id number] [address] [place] [id number] Oct, [facility] [address] [facility] [id number] [address] [place] [address] Oct, Chronic pain G89.29 ; Diabet es E11.9 ; Anxiety F41.9 and 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 [facility] [address] [facility] [id number] [address] [place] [id number] Oct, [facility] [address] [facility] [id number] [address] [place] [id number] Oct, Diabetes E11.9 [facility] [address] [facility] [id number] [address] [place] [id number] Oct, Bipolar I disorder, most rec ent episode (or current) mixed, moderate F31.62 [facility] [address] [facility] [id number] [address] [place] [address] Sep, Chronic pain G89.29 [facility] [address] [facility] [id number] [address] [place] [id number] Sep, Chronic pain G89.29 [facility] [address] [facility] [id number] [address] [place] [id number] Aug, Chronic pain G89.29 [facility] [address] [facility] [id number] [address] [place] [id number] Jul, [facility] [address] [facility] [id number] [address] [place] [id number] Jul, Diabetes E11.9 [facility] [address] [facility] [id number] [address] [place] [id number] Jul, Chronic pain G89.29 [facility] [address] [facility] [id number] [address] [place] [id number] Jul, Bipolar I disorder, most rec ent episode (or current) mixed, moderate F31.62 [facility] [address] [facility] [id number] [address] [place] [id number] Jun, Bipolar I disorder, most rec ent episode (or current) mixed, moderate F31.62 [facility] [address] [facility] [id number] [address] [place] [id number] Jun, [facility] [address] [place] [id number] [address] [place] [id number] Jun, Bipolar I disorder, most rec ent episode (or current) mixed, moderate F31.62 [place] [address] [place] [id number] [address] [place] [id number] May, Insomnia, unspecified type G 47.00 [place] [address] [facility] [id number] [address] [place] [address] May, Bipolar I disorder, most rec ent episode (or current) mixed, moderate F31.62 [place] [address] [place] [id number] [address] [place] [id number] 14 May, 2016 [facility] [address] [facility] [id number] [address] [place] [id number] 08 May, 2016 Bipolar I disorder, most rec ent episode (or current) mixed, moderate F31.62 [place] [address] [facility] [id number] [address] [place] [id number] 06 May, 2016 Diabetes E11.9 and Essential hypertension I10 [facility] [address] [facility] [id number] [address] [place] [id number] Apr, Chronic pain G89.29 [facility] [address] [facility] [id number] [address] [place] [id number] Apr, Bipolar I disorder, most rec ent episode (or current) mixed, moderate F31.62 [facility] [address] [facility] [id number] [address] [place] [id number] Apr, [facility] [address] [facility] [id number] [address] [place] [id number] Apr, [facility] [address] [facility] [id number] [address] [place] [id number] Mar, Chronic pain G89.29 ; Headac he, unspecified headache type R51 ; Neuropathy G62.9 ; Pain of right hip joint M25.551 and Essential hypertension I10 [place] [address] [facility] [id number] [address] [place] [id number] Mar, Chronic pain G89.29 [place] [address] [facility] [id number] [address] [place] [id number] Mar, Bipolar I disorder, most rec ent episode (or current) mixed, moderate F31.62 [place] [id number] [facility] [id number] [address] [place] [id number] Feb, Bipolar I disorder, most rec ent episode (or current) mixed, moderate F31.62 and Insomnia, unspecified type G47.00 [place] [address] [address] [facility] [id number] [address] [place] [address] Feb, Chronic pain G89.29 [facility] [address] [facility] [id number] [address] [place] [address] Feb, Bipolar I disorder, most rec ent episode (or current) mixed, moderate F31.62 [place] [address] [address] [facility] [id number] [address] [place] [address] January, Bipolar I disorder, most rec ent episode (or current) mixed, moderate F31.62 [place] [address] [address] [facility] [id number] [address] [place] [address] January, Chronic pain G89.29 [place] [address] [address] [facility] [id number] [address] [place] [address] January, Chronic pain G89.29 and Esse ntial hypertension I10 [facility] [address] [facility] [id number] [address] [place] [address] January, Bipolar I disorder, most rec ent episode (or current) mixed, moderate F31.62 [facility] [address] [facility] [id number] [address] [place] [address] Dec, [facility] [address] [facility] [id number] [address] [place] [address] Dec, [facility] [address] [facility] [id number] [address] [place] [address] Dec, [facility] [address] [place] [id number] [address] [place] [address] Dec, [facility] [address] [facility] [id number] [address] [place] [address] Nov, Reactive airway disease J45. 909 [facility] [address] [facility] [id number] [address] [place] [address] Nov, [facility] [address] [facility] [id number] [address] [place] [address] Nov, [facility] [address] [facility] [id number] [address] [place] [address] Nov, [facility] [address] [facility] [id number] [address] [place] [address] Nov, [facility] [address] [facility] [id number] [address] [place] [address] Nov, Onychomycosis B35.1 ; Hammer toe M20.40 ; [place] or callus L84 and DM neuro manif type II E11.49 [facility] [address] [facility] [id number] [address] [place] [address] 15 Nov, 2015 Chronic pain G89.29 ; Leukoc ytosis D72.829 and Diabetes E11.9 [place] [address] [id number] Nov, [place] [address] [id number] Oct, Bronchitis J40 [place] [address] [address] Oct, [place] [address] [address] Oct, [place] [address] [address] Oct, Mastoiditis, unspecified lat erality H70.90 and Type 2 diabetes mellitus with complication E11.8 [place] [address] [address] Sep, [place] [address] [address] Sep, Dysuria R30.0 ; Cough R05 ; Benign prostatic hyperplasia with lower urinary tract symptoms, unspecified morphology N40.1 ; Hypokalemia E87.6 and Eustachian tube dysfunction, unspecified laterality H69.80 [place] [address] [address] Sep, Moderate mixed bipolar I dis order F31.62 [place] [address] [address] Sep, Hypokalemia E87.6 [place] [address] [address] Sep, [place] [address] [address] Sep, Upper respiratory tract infe ction, unspecified type J06.9 [place] [address] [address] Aug, [facility] [address] [id number] [address] [place] [address] Aug, Dysuria R30.0 [facility] [address] [id number] [address] [place] [address] Aug, [facility] [address] [id number] [address] [place] [address] Jul, [facility] [address] [id number] [address] [place] [address] Jul, [facility] [address] [id number] [address] [place] [address] Jul, [facility] [address] [id number] [address] [place] [address] Jul, [facility] [address] [id number] [address] [place] [address] Jun, [facility] [address] [id number] [address] [place] [address] Jun, [facility] [address] [id number] [address] [place] [address] Jun, [facility] [address] [id number] [address] [place] [address] May, [facility] [address] [id number] [address] [place] [address] May, Bipolar I disorder, most rec ent episode (or current) mixed, moderate 296.62 [facility] [address] [id number] [address] [place] [address] 16 May, 2015 [facility] [address] [id number] [address] [place] [address] May, Bipolar I disorder, most rec ent episode (or current) mixed, moderate 296.62 and Major depressive disorder, recurrent episode, severe, specified as with psychotic behavior 296.34 [facility] [address] [id number] [address] [place] [address] May, Bipolar I disorder, most rec ent episode (or current) mixed, moderate 296.62 [facility] [address] [id number] [address] [place] [address] May, [facility] [address] [id number] [address] [place] [address] Apr, [facility] [address] [id number] [address] [place] [address] Apr, [facility] [address] [id number] [address] [place] [address] Apr, Unspecified disorder of kidn ey and ureter 593.9 and Diabetes mellitus type 2, uncontrolled 250.02 [facility] [address] [id number] [address] [place] [address] Apr, [facility] [address] [id number] [address] [place] [address] Apr, [facility] [address] [id number] [address] [place] [address] Apr, [facility] [address] [id number] [address] [place] [address] Apr, [facility] [address] [facility] [id number] [address] [place] [address] Apr, Diabetes mellitus type II, u ncontrolled 250.02 [facility] [address] [id number] [address] [place] [address] Apr, [facility] [address] [id number] [address] [place] [address] Mar, [facility] [address] [id number] [address] [place] [address] Mar, [facility] [address] [facility] [id number] [address] [place] [address] Mar, [facility] [address] [id number] [address] [place] [address] Mar, Major depressive disorder, r ecurrent episode, severe, specified as with psychotic behavior 296.34 and Bipolar I disorder, most recent episode (or current) mixed, moderate 296.62 [facility] [address] [place] [id number] [address] [place] [address] Mar, Diabetes 250.00 ; Anuria 788 .5 ; Nausea and vomiting 787.01 and Diarrhea 787.91 [facility] [address] [address] Mar, Diabetes 250.00 [facility] [address] [address] Mar, [facility] [address] [address] Mar, Diabetes 250.00 [facility] [address] [address] Mar, [facility] [address] [place] [id number] [address] [place] [address] Mar, [facility] [address] [address] Mar, [facility] [address] [place] [id number] [address] [place] [address] Mar, [facility] [address] [place] [id number] [address] [place] [address] Mar, Bipolar I disorder, most rec ent episode (or current) mixed, moderate 296.62 and Major depressive disorder, recurrent episode, severe, specified as with psychotic behavior 296.34 [facility] [address] [address] Mar, Magnesium deficiency 275.2 ; Hypokalemia 276.8 ; Nausea & vomiting 787.01 and Diabetes mellitus type 2, uncontrolled 250.02 [facility] [address] [place] [id number] [address] [place] [address] Feb, [facility] [address] [address] Feb, Bipolar I disorder, most rec ent episode (or current) mixed, moderate 296.62 [facility] [address] [address] Feb, Nausea and vomiting 787.01 ; Left elbow pain 719.42 ; Anuria 788.5 and Diabetes 250.00 [facility] [address] [address] Feb, [facility] [address] [address] Feb, Hypopotassemia 276.8 and Hyp okalemia 276.8 [place] [address] [address] Feb, Hypopotassemia 276.8 and Hyp okalemia 276.8 [facility] [address] [address] Feb, Seborrheic keratoses 702.19 [facility] [address] [address] Feb, Hypopotassemia 276.8 and Low magnesium levels 275.2 [facility] [address] [address] January, [facility] [address] [address] January, [facility] [address] [address] January, [facility] [address] [address] January, Scalp lesion 709.9 [facility] [address] [address] January, [facility] [address] [place] [id number] [place] [address] 30 Dec, 2014 Tear of medial cartilage or meniscus of knee, current 836.0 and Chondromalacia 733.92 [facility] [address] [id number] [address] [place] [address] Dec, [facility] [address] [id number] [address] [place] [address] Dec, [facility] [address] [id number] [address] [place] [address] 28 Dec, 2014 Squamous cell carcinoma, 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 [facility] [address] [id number] [address] [place] [address] 14 Dec, 2014 [facility] [address] [id number] [address] [place] [id number] Dec, [facility] [address] [id number] [address] [place] [address] Nov, [facility] [address] [id number] [address] [place] [address] Nov, [facility] [address] [id number] [address] [place] [address] Nov, [facility] [address] [id number] [address] [place] [address] Nov, [facility] [address] [id number] [address] [place] [id number] Nov, [facility] [address] [id number] [address] [place] [id number] Nov, [facility] [address] [id number] [address] [place] [address] Nov, [facility] [address] [id number] [address] [place] [address] Nov, [facility] [address] [id number] [address] [place] [address] Nov, [facility] [address] [id number] [address] [place] [address], [place] [address] Nov, [facility] [address] [id number] [address] [place] [address], [place] [address] Nov, [facility] [address] [id number] [address] [place] [address], [place] [address] Nov, [facility] [address] [id number] [address] [place] [address], [place] [address] Oct, 2014 [facility] [address] [id number] [address] [place] [address], [place] [address] Oct, 2014 [facility] [address] [id number] [address] [place] [address], [place] [address] Oct, 2014 [facility] [address] [id number] [address] [place] [address], [place] [address] Oct, 2014 [facility] [address] [id number] [address] [place] [address], [place] [address] Oct, 2014 [facility] [address] [id number] [address] [place] [address], [place] [address] Oct, [facility] [address] [id number] [address] [place] [address], [place] [address] Oct, [facility] [address] [id number] [address] [place] [address], [place] [address] Oct, 2014 [facility] [address] [id number] [address] [place] [address], [place] [address] Oct, [facility] [address] [id number] [address] [place] [address], [place] [address] Sep, [facility] [address] [id number] [address] [place] [address], [place] [address] Sep, [facility] [address] [id number] [address] [place] [address], [place] [address] Sep, [facility] [address] [id number] [address] [place] [address], [place] [address] Sep, [facility] [address] [id number] [address] [place] [address], [place] [address] Sep, [facility] [address] [id number] [address] [place] [address], [place] [address] Sep, [facility] [address] [id number] [address] [place] [address], [place] [address] Sep, [facility] [address] [id number] [address] [place] [address], [place] [address] Sep, [facility] [address] [id number] [address] [place] [address], [place] [address] Sep, [facility] [address] [id number] [address] [place] [address], [place] [address] Sep, [facility] [address] [id number] [address] [place] [address], [place] [address] Sep, [facility] [address] [id number] [address] [place] [address], [place] [address] Sep, [facility] [address] [id number] [address] [place] [address], [place] [address] Sep, [facility] [address] [id number] [address] [place] [address], [place] [address] Sep, [facility] [address] [id number] [address] [place] [address], [place] [address] Sep, [facility] [address] [id number] [address] [place] [address], [place] [address] Sep, [facility] [address] [id number] [address] [place] [address], [place] [address] Aug, [facility] [address] [id number] [address] [place] [address], [place] [address] Aug, [facility] [address] [id number] [address] [place] [address], [place] [address] Aug, [facility] [address] [id number] [facility] [address] Aug, [facility] [address] [id number] [facility] [address] Aug, [facility] [address] [id number] [facility] [address] Aug, [facility] [address] [id number] [facility] [address] Aug, [facility] [address] [id number] [facility] [address] Aug, [facility] [address] [id number] [address] [place] [address], [place] [address] Aug, [facility] [address] [id number] [address] [place] [address], [place] [address] Aug, [facility] [address] [id number] [address] [place] [address], [place] [address] Aug, [facility] [address] [place] [id number] Aug, [facility] [address] [id number] [address] [place] [address], [place] [address] Aug, [facility] [address] [id number] [address] [place] [address], [place] [address] Aug, [facility] [address] [id number] [address] [place] [address], [place] [address] Aug, [facility] [address] [id number] [address] [place] [address], [place] [address] Aug, [facility] [address] [id number] [address] [place] [address], [place] [address] Aug, [facility] [address] [id number] [address] [place] [address], [place] [address] Aug, [facility] [address] [id number] [address] [place] [address], [place] [address] Aug, [facility] [address] [id number] [address] [place] [address], [place] [address] Aug, [facility] [address] [id number] [address] [place] [address], [place] [address] Aug, [facility] [address] [id number] [address] [place] [address], [place] [address] Aug, [facility] [address] [id number] [address] [place] [address], [place] [address] Aug, [facility] [address] [id number] [address] [place] [address], [place] [address] Aug, [facility] [address] [id number] [address] [place] [address], [place] [address] Aug, [facility] [address] [id number] [address] [place] [address], [place] [address] Aug, [facility] [address] [id number] [address] [place] [address], [place] [address] Aug, [facility] [address] [id number] [address] [place] [address], [place] [address] Aug, [facility] [address] [id number] [address] [place] [address], [place] [address] Aug, [facility] [address] [id number] [address] [place] [address], [place] [address] Aug, [facility] [address] [id number] [address] [place] [address], [place] [address] Jul, [facility] [address] [id number] [address] [place] [address], [place] [address] Jul, [facility] [address] [id number] [address] [place] [address], [place] [address] Jul, [facility] [address] [id number] [address] [place] [address], [place] [address] Jul, [facility] [address] [id number] [address] [place] [address], [place] [address] Jul, [facility] [address] [id number] [address] [place] [address], [place] [address] Jul, [facility] [address] [id number] [address] [place] [address], [place] [address] Jul, [facility] [address] [id number] [address] [place] [address], [place] [address] Jul, [facility] [address] [id number] [address] [place] [address], [place] [address] Jul, [facility] [address] [id number] [address] [place] [address], [place] [address] Jul, [facility] [address] [id number] [address] [place] [address], [place] [address] Jun, [facility] [address] [id number] [address] [place] [address], [place] [address] Jun, [facility] [address] [id number] [address] [place] [address], [place] [address] Jun, [facility] [address] [id number] [address] [place] [address], [place] [address] Jun, [facility] [address] [id number] [address] [place] [address], [place] [address] Jun, [facility] [address] [id number] [address] [place] [address], [place] [address] Jun, [facility] [address] [id number] [address] [place] [address], [place] [address] Jun, [facility] [address] [id number] [address] [place] [address], [place] [address] Jun, [facility] [address] [id number] [address] [place] [address], [place] [address] Jun, [facility] [address] [id number] [address] [place] [address], [place] [address] Jun, [facility] [address] [id number] [address] [place] [address], [place] [address] 29 Sep, 2013 [facility] [address] [id number] [address] [place] [address], [place] [address] 29 Sep, 2013 [facility] [address] [id number] [address] [place] [address], [place] [address] 26 Sep, 2013 [facility] [address] [id number] [address] [place] [address], [place] [address] 26 May, 2013 [facility] [address] [id number] [address] [place] [address], [place] [address] 17 May, 2013 [facility] [address] [id number] [address] [place] [address], [place] [address] 17 May, 2013 [facility] [address] [id number] [address] [place] [address], [place] [address] 15 May, 2013 [facility] [address] [id number] [address] [place] [address], [place] [address] 15 May, 2013 [facility] [address] [id number] [address] [place] [address], [place] [address] 15 May, 2013 [facility] [address] [id number] [address] [place] [address], [place] [address] 15 May, 2013 [facility] [address] [id number] [address] [place] [address], [place] [address] 10 May, 2013 [facility] [address] [id number] [address] [place] [address], [place] [address] 10 May, 2013 [facility] [address] [id number] [address] [place] [address], [place] [address] 09 May, 2013 [facility] [address] [id number] [address] [place] [address], [place] [address] 09 Sep, 2013 [facility] [address] [id number] [address] [place] [address], [place] [address] 04 Sep, 2013 [facility] [address] [id number] [address] [place] [address], [place] [address] May, [facility] [address] [id number] [address] [place] [address], [place] [address] Apr, [facility] [address] [id number] [address] [place] [address], [place] [address] Apr, [facility] [address] [id number] [address] [place] [address], [place] [address] Apr, [facility] [address] [id number] [address] [place] [address], [place] [address] Apr, [facility] [address] [id number] [address] [place] [address], [place] [address] Apr, [facility] [address] [id number] [address] [place] [address], [place] [address] Apr, [facility] [address] [id number] [address] [place] [address], [place] [address] Apr, [facility] [address] [id number] [address] [place] [address], [place] [address] Apr, [facility] [address] [id number] [address] [place] [address], [place] [address] Apr, [facility] [facility] [address] [id number] [address] [place] [address], [place] [address] Apr, [facility] [address] [id number] [address] [place] [address], [place] [address] Apr, [facility] [address] [id number] [address] [place] [address], [place] [address] Apr, [facility] [address] [id number] [address] [place] [address], [place] [address] Apr, [facility] [address] [id number] [address] [place] [address], [place] [address] Apr, [facility] [address] [id number] [address] [place] [address], [place] [address] Apr, [facility] [address] [id number] [facility] [address] Mar, 2013 [facility] [address] [id number] [facility] [address] Mar, 2013 [facility] [address] [id number] [facility] [address] Mar, 2013 [facility] [address] [id number] [facility] [address] Mar, 2013 [facility] [address] [id number] [facility] [address] Mar, 2013 [facility] [address] [id number] [address] [place] [address], [place] [address] Mar, 2013 [facility] [address] [id number] [address] [place] [address], [place] [address] Mar, 2013 [facility] [address] [id number] [address] [place] [address], [place] [address] Mar, 2013 [facility] [address] [id number] [address] [place] [address], [place] [address] Mar, 2013 [facility] [address] [id number] [address] [place] [address], [place] [address] Mar, 2013 [facility] [address] [id number] [address] [place] [address], [place] [address] Mar, 2013 [facility] [address] [id number] [address] [place] [address], [place] [address] Mar, 2013 [facility] [address] [id number] [address] [place] [address], [place] [address] Mar, 2013 [facility] [address] [id number] [address] [place] [address], [place] [address] Mar, 2013 [facility] [address] [id number] [address] [place] [address], [place] [address] Mar, 2013 [facility] [address] [id number] [address] [place] [address], [place] [address] Mar, [facility] [address] [id number] [facility] [address] Mar, [facility] [address] [id number] [facility] [address] Mar, [facility] [address] [id number] [facility] [address] Feb, [facility] [address] [id number] [facility] [address] Feb, [facility] [address] [id number] [facility] [address] Feb, [facility] [address] [id number] [address] [place] [address], [place] [address] Feb, [facility] [address] [id number] [address] [place] [address], [place] [address] Feb, [facility] [address] [id number] [address] [place] [address], [place] [address] Feb, [facility] [address] [id number] [address] [place] [address], [place] [address] Feb, [facility] [address] [id number] [address] [place] [address], [place] [address] Feb, [facility] [address] [id number] [address] [place] [address], [place] [address] Feb, [facility] [address] [id number] [address] [place] [address], [place] [address] Feb, [facility] [address] [id number] [address] [place] [address], [place] [address] Feb, [facility] [address] [id number] [address] [place] [address], [place] [address] Feb, [facility] [address] [id number] [address] [place] [address], [place] [address] Feb, [facility] [address] [id number] [address] [place] [address], [place] [address] Feb, [facility] [address] [id number] [address] [place] [address], [place] [address] January, [facility] [address] [id number] [address] [place] [address], [place] [address] January, [facility] [address] [id number] [address] [place] [address], [place] [address] January, [facility] [address] [id number] [address] [place] [address], [place] [address] January, [facility] [address] [id number] [address] [place] [address], [place] [address] January, [facility] [address] [id number] [address] [place] [address], [place] [address] January, [facility] [address] [id number] [address] [place] [address], [place] [address] January, [facility] [address] [id number] [address] [place] [address], [place] [address] January, [facility] [address] [id number] [address] [place] [address], [place] [address] January, [facility] [address] [id number] [address] [place] [address], [place] [address] January, [facility] [address] [id number] [address] [place] [address], [place] [address] January, [facility] [address] [id number] [address] [place] [address], [place] [address] January, [facility] [address] [id number] [address] [place] [address], [place] [address] January, [facility] [address] [id number] [address] [place] [address], [place] [address] January, [facility] [address] [id number] [address] [place] [address], [place] [address] Dec, [facility] [address] [id number] [facility] [address] Dec, [facility] [address] [id number] [facility] [address] Dec, [facility] [address] [id number] [facility] [address] Dec, [facility] [address] [id number] [address] [place] [address], [place] [address] Dec, [facility] [address] [id number] [facility] [address] Dec, [facility] [address] [id number] [address] [place] [address], [place] [address] Dec, [facility] [address] [id number] [address] [place] [address], [place] [address] Dec, [facility] [address] [id number] [address] [place] [address], [place] [address] Dec, [facility] [address] [id number] [address] [place] [address], [place] [address] Dec, [facility] [address] [id number] [address] [place] [address], [place] [address] Nov, [facility] [address] [id number] [address] [place] [address], [place] [address] Nov, [facility] [address] [id number] [address] [place] [address], [place] [address] Nov, [facility] [address] [id number] [address] [place] [address], [place] [address] Nov, [facility] [address] [id number] [address] [place] [address], [place] [address] Nov, [facility] [address] [id number] [address] [place] [address], [place] [address] Nov, [facility] [address] [id number] [address] [place] [address], [place] [address] Nov, [facility] [address] [id number] [address] [place] [address], [place] [address] Nov, [facility] [address] [id number] [address] [place] [address], [place] [address] Nov, [facility] [address] [id number] [address] [place] [address], [place] [address] Nov, [facility] [address] [id number] [address] [place] [address], [place] [address] Oct, [facility] [address] [id number] [address] [place] [address], [place] [address] Oct, [facility] [address] [id number] [address] [place] [address], [place] [address] Oct, [facility] [address] [id number] [address] [place] [address], [place] [address] Oct, [facility] [address] [id number] [address] [place] [address], [place] [address] Oct, [facility] [address] [id number] [address] [place] [address], [place] [address] Oct, [facility] [address] [id number] [address] [place] [address], [place] [address] Oct, [facility] [address] [id number] [address] [place] [address], [place] [address] Oct, [facility] [address] [id number] [address] [place] [address], [place] [address] Oct, [facility] [address] [id number] [address] [place] [address], [place] [address] Oct, [facility] [address] [id number] [address] [place] [address], [place] [address] Oct, [facility] [address] [id number] [address] [place] [address], [place] [address] Oct, [facility] [address] [id number] [address] [place] [address], [place] [address] Oct, [facility] [address] [id number] [address] [place] [address], [place] [address] Oct, [facility] [address] [id number] [address] [place] [address], [place] [address] Sep, [facility] [address] [id number] [address] [place] [address], [place] [address] Sep, [facility] [address] [id number] [address] [place] [address], [place] [address] Sep, [facility] [address] [id number] [address] [place] [address], [place] [address] Sep, [facility] [address] [id number] [address] [place] [address], [place] [address] Sep, [facility] [address] [id number] [address] [place] [address], [place] [address] Sep, [facility] [address] [id number] [address] [place] [address], [place] [address] Sep, [facility] [address] [id number] [address] [place] [address], [place] [address] Sep, [facility] [address] [id number] [address] [place] [address], [place] [address] Sep, [facility] [address] [id number] [address] [place] [address], [place] [address] Sep, [facility] [address] [id number] [address] [place] [address], [place] [address] Aug, [facility] [address] [id number] [address] [place] [address], [place] [address] Aug, [facility] [address] [id number] [address] [place] [address], [place] [address] Jul, [facility] [address] [id number] [address] [place] [address] [place] [address] Jul, [facility] [address] [id number] [address] [place] [address], [place] [address] Jul, [facility] [address] [id number] [address] [place] [address], [place] [address] Jul, [facility] [address] [id number] [address] [place] [address], [place] [address] Jul, [facility] [address] [id number] [address] [place] [address], [place] [address] Jul, [facility] [address] [id number] [address] [place] [address], [place] [address] Jul, [facility] [address] [id number] [address] [place] [address], [place] [address] Jul, [facility] [address] [id number] [address] [place] [address], [place] [address] Jul, [facility] [address] [id number] [address] [place] [address], [place] [address] Jul, [facility] [address] [id number] [address] [place] [address], [place] [address] Jul, [facility] [address] [id number] [address] [place] [address], [place] [address] Jul, [facility] [address] [id number] [address] [place] [address], [place] [address] Jul, [facility] [address] [id number] [address] [place] [address] Jul, [facility] [address] [id number] [address] [place] [address] Jul, [facility] [address] [id number] [address] [place] [address], [place] [address] Jul, [facility] [address] [id number] [address] [place] [address] Jul, [facility] [address] [id number] [address] [place] [address], [place] [address] Jul, 2012 [facility] [address] [id number] [address] [place] [address], [place] [address] Jul, 2012 [facility] [address] [id number] [address] [place] [address], [place] [address] Jun, 2012 [facility] [address] [id number] [address] [place] [address], [place] [address] Jun, 2012 [facility] [address] [id number] [address] [place] [address], [place] [address] Jun, 2012 [facility] [address] [id number] [address] [place] [address], [place] [address] Jun, 2012 [facility] [address] [id number] [address] [place] [address], [place] [address] Jun, 2012 [facility] [address] [id number] [address] [place] [address], [place] [address] Jun, [facility] [address] [id number] [address] [place] [address], [place] [address] Jun, [facility] [address] [id number] [address] [place] [address], [place] [address] Jun, [facility] [address] [id number] [address] [place] [address], [place] [address] Jun, [facility] [address] [id number] [address] [place] [address], [place] [address] Jun, [facility] [address] [id number] [address] [place] [address], [place] [address] Jun, [facility] [address] [id number] [address] [place] [address], [place] [address] May, [facility] [address] [id number] [address] [place] [address] May, [facility] [address] [id number] [address] [place] [address] 19 May, 2013 [facility] [address] [id number] [facility] [address] 17 May, 2013 [facility] [address] [id number] [address] [place] [address], [place] [address] 11 May, 2013 [facility] [address] [id number] [address] [place] [address], [place] [address] 10 May, 2013 [facility] [address] [id number] [address] [place] [address], [place] [address] 09 May, 2013 [facility] [address] [id number] [address] [place] [address], [place] [address] 05 May, 2013 [facility] [address] [id number] [address] [place] [address], [place] [address] Apr, [facility] [address] [id number] [address] [place] [address], [place] [address] Apr, [facility] [address] [id number] [address] [place] [address], [place] [address] Apr, [facility] [address] [id number] [address] [place] [address], [place] [address] Apr, [facility] [address] [id number] [address] [place] [address], [place] [address] Apr, [facility] [address] [id number] [address] [place] [address], [place] [address] Mar, [facility] [address] [id number] [address] [place] [address], [place] [address] Mar, [facility] [address] [id number] [address] [place] [address], [place] [address] Mar, [facility] [address] [id number] [address] [place] [address], [place] [address] Mar, [facility] [address] [id number] [address] [place] [address], [place] [address] Mar, [facility] [address] [id number] [address] [place] [address], [place] [address] Mar, [facility] [address] [id number] [address] [place] [address], [place] [address] Mar, [facility] [address] [id number] [address] [place] [address], [place] [address] Mar, [facility] [address] [id number] [address] [place] [address], [place] [address] Feb, [facility] [address] [id number] [address] [place] [address], [place] [address] Feb, [facility] [address] [id number] [address] [place] [address], [place] [address] January, [facility] [address] [id number] [address] [place] [address], [place] [address] January, [facility] [address] [id number] [address] [place] [address], [place] [address] Dec, [facility] [address] [id number] [address] [place] [address], [place] [address] Dec, [facility] [address] [id number] [address] [place] [address], [place] [address] Nov, [facility] [address] [id number] [address] [place] [address], [place] [address] Nov, [facility] [address] [id number] [address] [place] [address], [place] [address] Nov, [facility] [address] [id number] [address] [place] [address], [place] [address] Nov, [facility] [address] [id number] [address] [place] [address], [place] [address] Oct, [facility] [address] [id number] [address] [place] [address], [place] [address] Oct, [facility] [address] [id number] [address] [place] [address], [place] [address] Oct, [facility] [address] [id number] [address] [place] [address], [place] [address] Oct, [facility] [address] [id number] [address] [place] [address], [place] [address] 16 Oct, 2012 [facility] [address] [id number] [address] [place] [address], [place] [address] 14 Oct, 2012 [facility] [address] [id number] [address] [place] [address], [place] [address] 08 Oct, 2012 [facility] [address] [id number] [address] [place] [address], [place] [address] 07 Oct, 2012 [facility] [address] [id number] [address] [place] [address], [place] [address] 03 Oct, 2012 [facility] [address] [id number] [address] [place] [address], [place] [address] Sep, [facility] [address] [id number] [address] [place] [address], [place] [address] Sep, [facility] [address] [id number] [address] [place] [address], [place] [address] Sep, [facility] [address] [id number] [address] [place] [address], [place] [address] Sep, [facility] [address] [id number] [address] [place] [address], [place] [address] Sep, [facility] [address] [id number] [address] [place] [address], [place] [address] Sep, [facility] [address] [id number] [address] [place] [address], [place] [address] Sep, [facility] [address] [id number] [address] [place] [address], [place] [address] 08 Sep, 2012 [facility] [address] [id number] [address] [place] [address], [place] [address] Aug, [facility] [address] [id number] [address] [place] [address], [place] [address] 31 Aug, 2012 [facility] [address] [id number] [address] [place] [address], [place] [address] Aug, [facility] [address] [id number] [address] [place] [address], [place] [address] Aug, [facility] [address] [id number] [address] [place] [address], [place] [address] Aug, [facility] [address] [id number] [address] [place] [address], [place] [address] Aug, [facility] [address] [id number] [address] [place] [address], [place] [address] Aug, [facility] [address] [id number] [address] [place] [address], [place] [address] Aug, [facility] [address] [id number] [address] [place] [address], [place] [address] Jul, [facility] [address] [id number] [address] [place] [address], [place] [address] Jul, [facility] [address] [id number] [address] [place] [address], [place] [address] Jul, [facility] [address] [id number] [address] [place] [address], [place] [address] Jul, [facility] [address] [id number] [address] [place] [address], [place] [address] Jul, [facility] [address] [id number] [address] [place] [address], [place] [address] Jul, [facility] [address] [id number] [address] [place] [address], [place] [address] Jun, [facility] [address] [id number] [address] [place] [address], [place] [address] Jun, [facility] [address] [id number] [address] [place] [address], [place] [address] Jun, [facility] [address] [id number] [address] [place] [address], [place] [address] 23 Jun, 2012 [facility] [address] [id number] [address] [place] [address], [place] [address] 22 Jun, 2012 [facility] [address] [id number] [address] [place] [address], [place] [address] 19 Jun, 2012 [facility] [address] [id number] [address] [place] [address], [place] [address] Jun, [facility] [address] [id number] [address] [place] [address], [place] [address] Jun, [facility] [address] [id number] [address] [place] [address], [place] [address] 10 Jun, 2012 [facility] [address] [id number] [address] [place] [address], [place] [address] 26 May, 2012 [facility] [address] [id number] [address] [place] [address], [place] [address] 24 May, 2012 [facility] [address] [id number] [address] [place] [address], [place] [address] 18 May, 2012 [facility] [address] [id number] [address] [place] [address], [place] [address] 30 Apr, 2012 [facility] [address] [id number] [address] [place] [address], [place] [address] 29 Apr, 2012 [facility] [address] [id number] [address] [place] [address], [place] [address] Apr, [facility] [address] [id number] [address] [place] [address], [place] [address] 14 Apr, 2012 [facility] [address] [id number] [address] [place] [address], [place] [address] Apr, [facility] [address] [id number] [address] [place] [address], [place] [address] Apr, [facility] [address] [id number] [address] [place] [address], [place] [address] Mar, [facility] [address] [id number] [address] [place] [address], [place] [address] Mar, [facility] [address] [id number] [address] [place] [address], [place] [address] Mar, [facility] [address] [id number] [address] [place] [address], [place] [address] Mar, [facility] [address] [id number] [address] [place] [address], [place] [address] Feb, [facility] [address] [id number] [address] [place] [address], [place] [address] Feb, [facility] [address] [id number] [address] [place] [address], [place] [address] Feb, [facility] [address] [id number] [address] [place] [address], [place] [address] Feb, [facility] [address] [id number] [address] [place] [address], [place] [address] Feb, [facility] [address] [id number] [address] [place] [address], [place] [address] January, [facility] [address] [id number] [address] [place] [address], [place] [address] January, [facility] [address] [id number] [address] [place] [address], [place] [address] January, [facility] [address] [id number] [address] [place] [address], [place] [address] January, [facility] [address] [id number] [address] [place] [address], [place] [address] January, [facility] [address] [id number] [address] [place] [address], [place] [address] January, [facility] [address] [id number] [address] [place] [address], [place] [address] Dec, [facility] [address] [id number] [address] [place] [address], [place] [address] 24 Dec, 2011 [facility] [address] [id number] [address] [place] [address], [place] [address] 17 Dec, 2011 [facility] [address] [id number] [address] [place] [address], [place] [address] 09 Dec, 2011 [facility] [address] [id number] [address] [place] [address], [place] [address] 06 Dec, 2011 [facility] [address] [id number] [address] [place] [address], [place] [address] 27 Nov, 2011 [facility] [address] [id number] [address] [place] [address], [place] [address] 14 Nov, 2011 [facility] [address] [id number] [address] [place] [address], [place] [address] 12 Nov, 2011 [facility] [address] [id number] [address] [place] [address], [place] [address] 07 Nov, 2011 [facility] [address] [id number] [address] [place] [address], [place] [address] 29 Oct, 2011 [facility] [address] [id number] [address] [place] [address], [place] [address] 28 Oct, 2011 [facility] [address] [id number] [address] [place] [address], [place] [address] 24 Oct, 2011 [facility] [address] [id number] [address] [place] [address], [place] [address] 13 Oct, 2011 [facility] [address] [id number] [address] [place] [address], [place] [address] 08 Oct, 2011 [facility] [address] [id number] [address] [place] [address], [place] [address] 31 Sep, 2011 [facility] [address] [id number] [address] [place] [address], [place] [address] 30 Sep, 2011 [facility] [address] [id number] [address] [address] Sep, [facility] [address] [id number] [address] [place] [address], [place] [address] Sep, [facility] [address] [id number] [address] [place] [address], [place] [address] Sep, [facility] [address] [id number] [address] [place] [id number] Sep, [facility] [address] [id number] [address] [place] [id number] Aug, [facility] [address] [id number] [address] [place] [address], [place] [address] Aug, [facility] [address] [id number] [address] [place] [address] Aug, [facility] [address] [id number] [address] [place] [id number] Jul, [facility] [address] [id number] [address] [place] [id number] Jul, [facility] [address] [id number] [address] [place] [id number] Jul, [facility] [address] [id number] [address] [place] [id number] Jul, [facility] [address] [id number] [address] [place] [id number] Jun, [facility] [address] [id number] [address] [place] [id number] 31 Jun, 2011 [facility] [address] [id number] [address] [place] [address], [place] [address] 18 Jun, 2011 [facility] [address] [id number] [address] [place] [id number] Jun, [facility] [address] [id number] [address] [place] [id number] Jun, [facility] [address] [id number] [address] [place] [address], [place] [address] 10 Jun, 2011 [facility] [address] [id number] [address] [place] [address], [place] [address] 11 Mar, 2011 [facility] [address] [id number] [address] [place] [address], [place] [address] 18 Dec, 2010 [facility] [address] [id number] [address] [place] [address], [place] [address] 11 Dec, 2010 [facility] [address] [id number] [address] [place] [address], [place] [address] 18 Nov, 2010 [facility] [address] [id number] [address] [place] [address], [place] [address] 16 Nov, 2010 [facility] [address] [id number] [address] [place] [address], [place] [address] 10 Sep, 2010 [facility] [address] [id number] [address] [place] [address], [place] [address] 31 Aug, 2010 [facility] [address] [id number] [address] [place] [address], [place] [address] 29 Aug, 2010 [facility] [address] [id number] [address] [place] [address], [place] [address] 29 Aug, 2010 [facility] [address] [id number] [address] [place] [address], [place] [address] 29 Aug, 2010 [facility] [address] [id number] [address] [place] [address], [place] [address] 27 Aug, 2010 [facility] [address] [id number] [address] [place] [address], [place] [address] 14 Aug, 2010 [facility] [address] [id number] [address] [place] [address], [place] [address] 08 Aug, 2010 [facility] [address] [id number] [address] [place] [address], [place] [address] 08 Aug, 2010 [facility] [address] [id number] [address] [place] [address], [place] [address] Aug, [facility] [address] [id number] [address] [place] [address], [place] [address] Aug, [facility] [address] [id number] [address] [place] [address], [place] [address] Aug, [facility] [address] [id number] [address] [place] [address], [place] [address] Aug, [facility] [address] [id number] [address] [place] [address], [place] [address] Jul, [facility] [address] [id number] [address] [place] [address], [place] [address] Jul, [facility] [address] [id number] [address] [place] [address], [place] [address] Jul, [facility] [address] [id number] [address] [place] [address], [place] [address] Jul, [facility] [address] [id number] [address] [place] [id number] Jul, [facility] [address] [id number] [address] [place] [address], [place] [address] Jul, [facility] [address] [id number] [address] [place] [id number] Jun, [facility] [address] [id number] [address] [place] [address] Jun, [facility] [address] [id number] [address] [place] [id number] Jun, [facility] [address] [id number] [address] [place] [address] Jun, [facility] [address] [id number] [address] [place] [id number] Apr, [facility] [address] [id number] [address] [place] [address] Mar, [facility] [address] [id number] [address] [place] [id number] 17 Feb, 2010 [facility] [address] [id number] [address] [place] [address], [place] [address] January, [facility] [address] [id number] [address] [place] [address] 15 Dec, 2009 [facility] [address] [id number] [address] [place] [id number] Nov, [facility] [address] [id number] [address] [place] [id number] 31 Aug, 2009 [facility] [address] [id number] [address] [place] [address], [place] [address] Aug, [facility] [address] [id number] [address] [place] [id number] Aug, [facility] [address] [id number] [address] [place] [id number] Jul, [facility] [address] [id number] [address] [place] [id number] Jul, [facility] [address] [id number] [address] [place] [address] Jul, [facility] [address] [id number] [address] [place] [id number] 30 Jun, 2009 [facility] [address] [id number] [address] [place] [id number] 29 Jun, 2009 [facility] [address] [id number] [address] [place] [id number] Jun, [facility] [address] [id number] [address] [place] [id number] 22 Jun, 2009 [facility] [address] [id number] [address] [place] [id number] Jun, [facility] [address] [id number] [address] [place] [id number] Jun, [facility] [address] [facility] [id number] [address] [place] [id number] Apr, [facility] [address] [facility] [id number] [address] [place] [id number] Apr, [facility] [address] [facility] [id number] [address] [place] [id number] Feb, [facility] [address] [facility] [id number] [address] [place] [id number] January, [facility] [address] [facility] [id number] [address] [place] [id number] Dec, IMMUNIZATIONS No Known Immunizations SOCIAL HISTORY Never Assessed REASON FOR VISIT PLAN OF CARE VITAL SIGNS Blood pressure systolic 146 mmHg 2013-07-04 Blood pressure diastolic 90 mmHg 2013-07-04 MEDICATIONS Unknown Medications RESULTS No Results PROCEDURES Procedure Date Ordered Result Body Site DRAIN/INJECT, JOINT/BURSA Jul 04, 2013 INSTRUCTIONS MEDICATIONS ADMINISTERED No Known Medications [...] History [facility] health ea rly 1999's Hospitalization History hyperkalemia 10/2017 Hospitalization History fluid in lung Hospitalization History stroke, 02/2020
--- OUTSIDE RECORDS SUMMARY | 2020-04-11 11:02 | XMS REPORT ---
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 [employer] Loading Name Role Phone ROSELINE LUIS Unavailable PROBLEMS Type Condition ICD9-CM Code YOL96-OJ Code Onset Dates Condition S tatus SNOMED Code Problem Insomnia, unspecified type G47.00 Act sharon 280211329 Problem Morbid obesity E66.01 Active 05632 6002 Problem Anxiety F41.9 Active 70655708 Problem Diabetic polyneuropathy associated with type 2 d iabetes mellitus E11.42 Active 26133528 Problem Essential hypertension I10 Active 99447752 Problem Bilateral primary osteoarthritis of knee M17.0 Active 208563836 Problem Polyneuropathy associated with underlying disease G63 Active 905626026 Problem Psychophysiological insomnia F51.04 A ctive 398442182 Problem Leukocytosis D72.829 Active 5381437 06 Problem Chronic diastolic (congestive) heart failure I50.3 2 Active 272801420 Problem Diabetes E11.9 Active 87654132 Problem Bipolar I disorder, most recent episode (or curr ent) mixed, moderate F31.62 Active 91980262 Problem Reactive airway disease J45.909 Active 855349781791 Problem Bipolar disorder, in partial remission, most rec ent episode depressed F31.75 Active 30288182 Problem Falling R29.6 Active 503801441 Problem Primary osteoarthritis of right knee M17.11 Active 567575034794745 Problem Cough R05 Active 65683487 Problem Pure hypercholesterolemia E78.00 Acti ve 983063907 Problem Dysuria R30.0 Active 18263904 Problem Mild cognitive impairment G31.84 Acti ve 580396298 Problem Benign prostatic hyperplasia with lower urinary tract symptoms, unspecified morphology N40.1 Active 66856 6007 Problem Other iron deficiency anemia D50.8 A ctive 00544104 Problem Eustachian tube dysfunction, unspecified laterality H69.80 Active 09146411 Problem Bipolar disorder F31.9 Active 137 07688 Problem Chronic pain G89.29 Active 4344037 1 Problem Skin cancer C44.90 Active 70495850 7 Problem DM neuro manif type II E11.49 Active 82180241 Problem Type 2 diabetes mellitus with diabetic neuropathy, uns pecified E11.40 Active 73593002 Problem FCI (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 Z79.4 Active 980444294 Problem Mood disorder F39 Active 815451 05 Problem Agitation R45.1 Active 864237906 Problem Anemia of chronic illness D63.8 Acti ve 110628132 Problem Lymphocytosis D72.820 Active 865420 09 Problem Dysphagia, unspecified type R13.10 Ac tive 58169787 Problem Retinal edema H35.81 Active 012174 6 Problem Chronic lymphocytic leukemia C91.10 A ctive 83136574 Problem Pressure ulcer of other site, stage 3 L89.893 Active 544852357 Problem 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 Active 616266021 Problem Eye exam abnormal R93.8 Active 16 7774310 Problem Bipolar I disorder, most recent episode depressed, moderat e F31.32 Active 130725423 Problem Gastroesophageal reflux disease without esophagitis K21.9 Active 681678669 Problem Hypokalemia E87.6 Active 77679526 Problem Other secondary acute gout, 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 0 Active 043430756 Problem PVD (peripheral vascular disease) I73.9 Active 886168950 ALLERGIES No Information ENCOUNTERS Encounter Location Date Diagnosis [place] [address] [facility] [id number] [address] [place] [address] Apr, [place] [address] [facility] [id number] [address] [place] [phone] Mar, [place] [address] [facility] [id number] [address] [place] [address] Mar, [facility] [address] [facility] [id number] [address] [place] [address] Mar, [place] [address] [facility] [id number] [address] [place] [address] Mar, Chronic pain G89.29 [facility] [address] [facility] [id number] [address] [place] [address] Mar, [facility] [address] [id number] [address] [place] [address] Mar, Bipolar I disorder, most rec ent episode depressed, moderate F31.32 ; Anxiety F41.9 and Mild cognitive impairment G31.84 [facility] [address] [id number] [address] [place] [address] Mar, Mood disorder F39 [facility] [address] [id number] [address] [place] [address] Mar, Bipolar I disorder, most rec ent episode depressed, moderate F31.32 ; Anxiety F41.9 and Mild cognitive impairment G31.84 [facility] [address] [id number] [address] [place] [phone] 26 Feb, 2020 Dysphagia, unspecified type R13.10 [facility] [address] [facility] [id number] [address] [place] [address] Feb, Bipolar I disorder, most rec ent episode depressed, moderate F31.32 ; Anxiety F41.9 and Mild cognitive impairment G31.84 [facility] [address] [id number] [address] [place] [address] Feb, [facility] [address] [id number] [address] [place] [address] Feb, Gastroesophageal reflux dise ase without esophagitis K21.9 [facility] [address] [facility] [id number] [address] [place] [address] Feb, [facility] [address] [id number] [address] [place] [address] 18 Feb, 2020 Bipolar I disorder, most rec ent episode depressed, moderate F31.32 ; Anxiety F41.9 and Mild cognitive impairment G31.84 [facility] [address] [facility] [id number] [address] [place] [address] 17 Feb, 2020 Chronic pain G89.29 [facility] [address] [facility] [id number] [address] [place] [address] Feb, Agitation R45.1 [facility] [address] [facility] [id number] [address] [place] [address] 17 Feb, 2020 PVD (peripheral vascular dis ease) I73.9 ; Status post CVA Z86.73 ; Status post carotid endarterectomy Z98.890 ; Vertigo R42 ; Mild cognitive impairment G31.84 ; Type 2 diabetes mellitus with diabetic neuropathy, unspecified E11.40 and Essential hypertension I10 [facility] [address] [id number] [address] [place] [address] Feb, [facility] [address] [id number] [address] [place] [address] Feb, [facility] [address] [facility] [id number] [address] [place] [address] January, [place] [address] [facility] [id number] [address] [place] [address] January, Chronic pain G89.29 [facility] [address] [facility] [id number] [address] [place] [address] Dec, [facility] [address] [facility] [id number] [address] [place] [address] Dec, Chronic pain G89.29 [facility] [address] [facility] [id number] [address] [place] [address] Dec, [facility] [address] [facility] [id number] [address] [place] [address] Dec, [facility] [address] [facility] [id number] [address] [place] [address] Dec, Gastroesophageal reflux dise ase without esophagitis K21.9 and Pure hypercholesterolemia E78.00 [place] [address] [facility] [id number] [address] [place] [address] Dec, Mood disorder F39 [place] [address] [facility] [id number] [address] [place] [address] Nov, Other secondary acute gout, 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 [facility] [address] [id number] [address] [place] [address] Nov, Gastroesophageal reflux dise ase without esophagitis K21.9 [facility] [address] [id number] [address] [place] [address] Nov, Chronic pain G89.29 [facility] [address] [id number] [address] [place] [address] Nov, Bipolar I disorder, most rec ent episode depressed, moderate F31.32 ; Anxiety F41.9 and Mild cognitive impairment G31.84 [facility] [address] [id number] [address] [place] [address] Nov, [facility] [address] [id number] [address] [place] [address] Nov, Syncope, unspecified syncope type R55 [facility] [address] [facility] [id number] [address] [place] [address] Nov, Mood disorder F39 [facility] [address] [id number] [address] [place] [address] Oct, Chronic pain G89.29 [facility] [address] [id number] [address] [place] [phone] Oct, [facility] [address] [id number] [address] [place] [address] Oct, Mood disorder F39 [facility] [address] [id number] [address] [place] [address] Oct, [facility] [address] [id number] [address] [place] [address] Oct, Bipolar disorder, in partial remission, most recent episode depressed F31.75 and Mild cognitive impairment G31.84 [facility] [address] [facility] [id number] [address] [place] [phone] 04 Oct, 2019 Mood disorder F39 [facility] [address] [id number] [address] [place] [address] Sep, [facility] [address] [id number] [address] [place] [address] Sep, Mood disorder F39 [facility] [address] [id number] [address] [place] [address] 13 Sep, 2019 Bipolar disorder, in partial remission, most recent episode depressed F31.75 and Mild cognitive impairment G31.84 [facility] [address] [id number] [address] [place] [address] 06 Sep, 2019 Mood disorder F39 [facility] [address] [id number] [address] [place] [address] Sep, [facility] [address] [id number] [address] [place] [address] Sep, Mood disorder F39 [facility] [address] [id number] [address] [place] [phone] Sep, [facility] [address] [id number] [address] [place] [phone] Aug, Mood disorder F39 [facility] [address] [id number] [address] [place] [phone] Aug, [facility] [address] [id number] [address] [place] [address] Aug, [facility] [address] [id number] [address] [place] [address] Aug, [facility] [address] [id number] [address] [place] [phone] Aug, [facility] [address] [id number] [address] [place] [address] Aug, [facility] [address] [id number] [address] [place] [address] Aug, [facility] [address] [id number] [address] [place] [address] Aug, [facility] [address] [id number] [address] [place] [address] Aug, Essential hypertension I10 [facility] [address] [id number] [address] [place] [address] Aug, Bipolar disorder, in partial remission, most recent episode depressed F31.75 and Mild cognitive impairment G31.84 [facility] [address] [id number] [address] [place] [address] Aug, Mood disorder F39 [facility] [address] [id number] [address] [place] [address] Aug, [facility] [address] [id number] [address] [place] [address] Aug, Bipolar disorder, in partial remission, most recent episode depressed F31.75 and Mild cognitive impairment G31.84 [facility] [address] [id number] [address] [place] [address] Jul, Bipolar disorder, in partial remission, most recent episode depressed F31.75 and Mild cognitive impairment G31.84 [facility] [address] [id number] [address] [place] [address] Jul, Psychophysiological insomnia F51.04 [facility] [address] [id number] [address] [place] [address] Jul, [facility] [address] [id number] [address] [place] [address] Jul, [facility] [address] [id number] [address] [place] [address] Jul, [facility] [address] [id number] [address] [place] [address] Jul, [facility] [address] [id number] [address] [place] [address] Jul, [facility] [address] [id number] [address] [place] [address] Jul, [place] [address] [facility] [id number] [address] [place] [address] Jul, Bipolar disorder, in partial remission, most recent episode depressed F31.75 and Mild cognitive impairment G31.84 [place] [address] [id number] [address] [place] [address] Jul, Chronic pain G89.29 ; Diabet es E11.9 ; Essential hypertension I10 ; Ill feeling R68.89 ; Local infection of the skin and subcutaneous tissue, unspecified L08.9 and Other injury of unspecified body region, initial encounter T14.8XXA [place] [address] [facility] [id number] [address] [place] [address] Jun, Bipolar disorder, in partial remission, most recent episode depressed F31.75 and Mild cognitive impairment G31.84 [place] [address] [facility] [id number] [address] [place] [address] Jun, [place] [address] [facility] [id number] [address] [place] [address] Jun, Bipolar disorder, in partial remission, most recent episode depressed F31.75 and Mild cognitive impairment G31.84 [place] [address] [facility] [id number] [address] [place] [address] Jun, Psychophysiological insomnia F51.04 [place] [address] [facility] [id number] [address] [place] [address] Jun, Psychophysiological insomnia F51.04 ; Chronic pain G89.29 ; Bipolar I disorder, most recent episode (or current) mixed, moderate F31.62 ; 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 ; Polyneuropathy associated with underlying disease G63 ; Type 2 diabetes mellitus with diabetic neuropathy, unspecified E11.40 ; 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.4 and Hyperglycemia R73.9 [place] [address] [facility] [id number] [address] [place] [address] Jun, Bipolar disorder, in partial remission, most recent episode depressed F31.75 and Mild cognitive impairment G31.84 [facility] [address] [id number] [address] [place] [address] Jun, [facility] [address] [id number] [address] [place] [address] Jun, Bipolar disorder F31.9 [facility] [address] [id number] [address] [place] [address] May, Bipolar disorder, in partial remission, most recent episode depressed F31.75 and Mild cognitive impairment G31.84 [facility] [address] [id number] [address] [place] [address] May, [facility] [address] [id number] [address] [place] [address] Apr, Chronic pain G89.29 and Bipo lar disorder F31.9 [facility] [address] [id number] [address] [place] [address] Mar, Bipolar disorder F31.9 and C hronic pain G89.29 [facility] [address] [id number] [address] [place] [address] Feb, Bipolar disorder F31.9 [facility] [address] [id number] [address] [place] [address] Feb, Cellulitis of right upper ex tremity L03.113 and Skin abrasion T14.8XXA [facility] [address] [id number] [address] [place] [address] Feb, Bipolar disorder, in partial remission, most recent episode depressed F31.75 and Mild cognitive impairment G31.84 [facility] [address] [id number] [address] [place] [address] Feb, Chronic pain G89.29 [facility] [address] [id number] [address] [place] [address] Feb, Bipolar disorder, in partial remission, most recent episode depressed F31.75 and Mild cognitive impairment G31.84 [facility] [address] [id number] [address] [place] [address] January, Bipolar disorder, in partial remission, most recent episode depressed F31.75 and Mild cognitive impairment G31.84 [facility] [address] [id number] [address] [place] [address] January, Chronic pain G89.29 and Bipo lar disorder F31.9 [facility] [address] [id number] [address] [place] [address] January, Bipolar disorder, in partial remission, most recent episode depressed F31.75 and Mild cognitive impairment G31.84 [facility] [address] [id number] [address] [place] [address] Dec, [facility] [address] [id number] [address] [place] [address] Dec, Chronic pain G89.29 and Bipo lar disorder F31.9 [facility] [address] [id number] [address] [place] [address] Dec, Edema of both lower extremit ies R60.0 [facility] [address] [id number] [address] [place] [address] Dec, Bipolar disorder F31.9 [facility] [address] [id number] [address] [place] [address] Dec, Bipolar disorder, in partial remission, most recent episode depressed F31.75 and Mild cognitive impairment G31.84 [facility] [address] [id number] [address] [place] [address] Nov, [facility] [address] [id number] [address] [place] [address] Nov, Chronic pain G89.29 [facility] [address] [id number] [address] [place] [address] Nov, Bipolar disorder, in partial remission, most recent episode depressed F31.75 and Mild cognitive impairment G31.84 [place] [address] [facility] [id number] [address] [place] [address] Nov, Bipolar disorder F31.9 [place] [address] [place] [id number] [address] [place] [address] 04 Nov, 2018 Encounter for Medicare hilary [...] unspecified morphology N40.1 and Essential hypertension I10 [id number] [place] [address] Oct, Chronic pain G89.29 [place] [address] [place] [id number] [address] [place] [address] 18 Oct, 2018 Diabetes E11.9 [place] [address] [place] [id number] [address] [place] [address] 11 Oct, 2018 Bipolar I disorder, most rec ent episode (or current) mixed, moderate F31.62 and Mild cognitive impairment G31.84 [place] [address] [place] [id number] [address] [place] [address] 06 Oct, 2018 Bipolar I disorder, most rec ent episode (or current) mixed, moderate F31.62 and Mild cognitive impairment G31.84 [place] [address] [place] [id number] [address] [place] [address] Sep, Bipolar I disorder, most rec ent episode (or current) mixed, moderate F31.62 and Mild cognitive impairment G31.84 [place] [address] [place] [id number] [address] [place] [address] Sep, [place] [id number] [place] [address] Sep, Diabetes E11.9 ; Hypoxia R09 .02 ; Hyperglycemia R73.9 ; Therapeutic drug monitoring Z51.81 ; BMI 50.0-59.9, adult Z68.43 and Skin cancer C44.90 [facility] [address] [facility] [id number] [address] [place] [address] Sep, Chronic pain G89.29 [facility] [address] [facility] [id number] [address] [place] [address] Sep, Bipolar I disorder, most rec ent episode (or current) mixed, moderate F31.62 [place] [address] [facility] [id number] [address] [place] [address] Sep, [place] [address] [place] [id number] [address] [place] [address] Sep, [facility] [address] [place] [id number] [address] [place] [address] Aug, Chronic pain G89.29 [facility] [address] [facility] [id number] [address] [place] [address] Aug, Bipolar I disorder, most rec ent episode (or current) mixed, moderate F31.62 [place] [address] [place] [id number] [address] [place] [address] Aug, Bipolar I disorder, most rec ent episode (or current) mixed, moderate F31.62 and Mild cognitive impairment G31.84 [facility] [address] [facility] [id number] [address] [place] [address] Jul, [facility] [address] [facility] [id number] [address] [place] [address] Jul, Chronic pain G89.29 [facility] [address] [facility] [id number] [address] [place] [address] Jul, Bipolar I disorder, most rec ent episode (or current) mixed, moderate F31.62 and Mild cognitive impairment G31.84 [place] [address] [facility] [id number] [address] [place] [address] Jul, Bipolar I disorder, most rec ent episode (or current) mixed, moderate F31.62 and MCI (mild cognitive impairment) G31.84 [facility] [address] [facility] [id number] [address] [place] [address] Jul, [facility] [address] [facility] [id number] [address] [place] [address] Jul, [facility] [address] [facility] [id number] [address] [place] [address] Jul, Bipolar I disorder, most rec ent episode (or current) mixed, moderate F31.62 [place] [address] [facility] [id number] [address] [place] [address] Jul, Chronic pain G89.29 [place] [address] [facility] [id number] [address] [place] [address] Jun, Bipolar I disorder, most rec ent episode (or current) mixed, moderate F31.62 [place] [address] [facility] [id number] [address] [place] [address] Jun, Pre-procedure lab exam Z01.8 12 [place] [address] [place] [id number] [address] [place] [address] Jun, [facility] [address] [place] [id number] [place] [id number] Jun, [facility] [address] [place] [id number] [address] [place] [address] Jun, [place] [address] [place] [id number] [address] [place] [address] Jun, Forgetfulness R68.89 ; Pre-s yncope R55 ; Localized edema R60.0 ; Other iron deficiency anemia D50.8 and BMI 50.0-59.9, adult Z68.43 [place] [address] [place] [id number] [address] [place] [address] Jun, Chronic pain G89.29 [facility] [address] [facility] [id number] [address] [place] [address] Jun, Chronic pain G89.29 [facility] [address] [facility] [id number] [address] [place] [address] Jun, Bipolar I disorder, most rec ent episode (or current) mixed, moderate F31.62 [facility] [address] [place] [id number] [address] [place] [address] May, Chronic pain G89.29 [facility] [address] [facility] [id number] [address] [place] [address] Apr, [place] [address] [place] [id number] [address] [place] [address] Apr, Chronic pain G89.29 [place] [address] [place] [id number] [address] [place] [address] Apr, Primary osteoarthritis of ri ght knee M17.11 [facility] [address] [place] [id number] [address] [place] [address] Mar, [place] [address] [place] [id number] [address] [place] [address] Mar, BMI 50.0-59.9, adult Z68.43 and Bipolar disorder, in partial remission, most recent episode depressed F31.75 [place] [address] [place] [id number] [address] [place] [address] Mar, Diabetes E11.9 ; Pure hyperc holesterolemia E78.00 ; Essential hypertension I10 ; Nausea with vomiting, unspecified R11.2 and Headache, unspecified headache type R51 [place] [address] [place] [id number] [address] [place] [address] Mar, Bipolar I disorder, most rec ent episode (or current) mixed, moderate F31.62 [place] [address] [place] [id number] [address] [place] [phone] Mar, Bipolar I disorder, most rec ent episode (or current) mixed, moderate F31.62 [facility] [address] [id number] [address] [place] [address] Mar, Chronic pain G89.29 [facility] [address] [facility] [id number] [address] [place] [address] Mar, Bipolar I disorder, most rec ent episode (or current) mixed, moderate F31.62 [facility] [address] [facility] [id number] [address] [place] [address] Feb, Bipolar I disorder, most rec ent episode (or current) mixed, moderate F31.62 [facility] [address] [facility] [id number] [address] [place] [address] Feb, Chronic pain G89.29 [facility] [address] [facility] [id number] [address] [place] [address] Feb, Decubitus ulcer of right josselin t, stage 3 L89.893 and BMI 50.0-59.9, adult Z68.43 [facility] [address] [facility] [id number] [address] [place] [address] Feb, Bipolar I disorder, most rec ent episode (or current) mixed, moderate F31.62 [facility] [address] [facility] [id number] [address] [place] [address] Feb, [facility] [address] [facility] [id number] [address] [place] [address] January, [facility] [address] [id number] [address] [place] [address] January, Chronic pain G89.29 [facility] [address] [facility] [id number] [address] [place] [address] January, Bipolar I disorder, most rec ent episode (or current) mixed, moderate F31.62 [facility] [address] [facility] [id number] [address] [place] [address] January, Bipolar I disorder, most rec ent episode (or current) mixed, moderate F31.62 [facility] [address] [facility] [id number] [address] [place] [address] Dec, Bipolar I disorder, most rec ent episode (or current) mixed, moderate F31.62 and BMI 50.0-59.9, adult Z68.43 [facility] [address] [facility] [id number] [address] [place] [address] Dec, Bipolar I disorder, most rec ent episode (or current) mixed, moderate F31.62 [place] [address] [facility] [id number] [address] [place] [address] Dec, Chronic pain G89.29 [place] [address] [place] [id number] [address] [place] [address] Dec, DM neuro manif type II E11.4 9 ; Right flank pain R10.9 ; [facility] current use of opiate analgesic Z79.891 ; Encounter for medication monitoring Z51.81 and BMI 50.0-59.9, adult Z68.43 [place] [address] [facility] [id number] [address] [place] [address] Dec, Bipolar I disorder, most rec ent episode (or current) mixed, moderate F31.62 [place] [address] [facility] [id number] [address] [place] [address] Nov, Bipolar I disorder, most rec ent episode (or current) mixed, moderate F31.62 [place] [address] [facility] [id number] [address] [place] [address] Nov, Chronic pain G89.29 [place] [address] [facility] [id number] [address] [place] [address] Nov, Bipolar I disorder, most rec ent episode (or current) mixed, moderate F31.62 [place] [address] [facility] [id number] [address] [place] [address] Nov, Hypokalemia E87.6 [place] [address] [address] Nov, Bipolar I disorder, most rec ent episode (or current) mixed, moderate F31.62 [place] [address] [address] Oct, Chronic pain G89.29 [place] [address] [address] Oct, BMI 50.0-59.9, adult Z68.43 and Bipolar I disorder, most recent episode (or current) mixed, moderate F31.62 [place] [address] [address] Oct, Bipolar I disorder, most rec ent episode (or current) mixed, moderate F31.62 [place] [address] [address] Oct, [place] [address] [address] Oct, Hypokalemia E87.6 [place] [address] [address] Oct, DM neuro manif type II E11.4 9 [place] [address] [address] Oct, Bipolar I disorder, most rec ent episode (or current) mixed, moderate F31.62 [place] [address] [address] Oct, Bipolar I disorder, most rec ent episode (or current) mixed, moderate F31.62 [place] [address] [address] 14 Oct, 2017 Hyperkalemia E87.5 ; Falling R29.6 ; BMI 50.0-59.9, adult Z68.43 and Acute left ankle pain M25.572 [place] [address] [address] 08 Oct, 2017 DM neuro manif type II E11.4 9 [place] [address] [address] Oct, [place] [address] [address] Sep, Chronic pain G89.29 [place] [address] [address] Sep, [place] [address] [address] Sep, Bilateral primary osteoarthr itis of knee M17.0 [place] [address] [address] Sep, Generalized edema R60.[address] [address] Sep, Bipolar I disorder, most rec ent episode (or current) mixed, moderate F31.[address] [address] Sep, Hypoxia R09.02 ; Other hyper volemia E87.79 ; Diabetes E11.9 ; Retinal edema H35.81 ; Hypokalemia E87.6 ; 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 ; Anemia of chronic illness D63.8 and BMI 50.0- 59.9, adult Z68.43 [place] [address] [address] Sep, [address] [address] Sep, Bipolar I disorder, most rec ent episode (or current) mixed, moderate F31.62 [place] [address] [address] Aug, Chronic pain G89.29 [place] [address] [place] [id number] [address] [place] [address] Aug, Generalized edema R60.1 [facility] [address] [facility] [id number] [address] [place] [address] Aug, [facility] [address] [place] [id number] [address] [place] [address] Aug, [facility] [address] [place] [id number] [address] [place] [address] Aug, Bipolar I disorder, most rec ent episode (or current) mixed, moderate F31.62 [place] [address] [place] [id number] [address] [place] [address] Aug, Bipolar I disorder, most rec ent episode (or current) mixed, moderate F31.62 [place] [address] [place] [id number] [address] [place] [address] Aug, Chronic pain G89.29 [place] [address] [place] [id number] [address] [place] [address] Jul, Bipolar I disorder, most rec ent episode (or current) mixed, moderate F31.62 [place] [address] [place] [id number] [address] [place] [address] Jul, Bipolar I disorder, most rec ent episode (or current) mixed, moderate F31.62 and BMI 60.0-69.9, adult Z68.44 [place] [address] [place] [id number] [address] [place] [address] Jul, Bipolar I disorder, most rec ent episode (or current) mixed, moderate F31.62 [place] [address] [place] [id number] [address] [place] [address] 06 Jul, 2017 Chronic pain G89.29 [facility] [address] [place] [id number] [address] [place] [address] Jul, Bipolar I disorder, most rec ent episode (or current) mixed, moderate F31.62 [place] [address] [place] [id number] [address] [place] [address] 18 Jun, 2017 Polyneuropathy associated wi th underlying disease G63 and Diabetes E11.9 [facility] [address] [facility] [id number] [address] [place] [address] 16 Jun, 2017 Bipolar I disorder, most rec ent episode (or current) mixed, moderate F31.62 [place] [address] [place] [id number] [address] [place] [address] 09 Jun, 2017 Chronic pain G89.29 [place] [address] [place] [id number] [address] [place] [address] May, Bipolar I disorder, most rec ent episode (or current) mixed, moderate F31.62 [place] [address] [place] [id number] [address] [place] [id number] 21 May, 2017 Bipolar I disorder, most rec ent episode (or current) mixed, moderate F31.62 [place] [address] [place] [id number] [address] [place] [address] May, Diabetic polyneuropathy asso ciated with type 2 diabetes mellitus E11.42 [place] [address] [place] [id number] [address] [place] [address] 18 May, 2017 Bipolar I disorder, most rec ent episode (or current) mixed, moderate F31.62 [place] [address] [place] [id number] [address] [place] [address] May, Bipolar I disorder, most rec ent episode (or current) mixed, moderate F31.62 [place] [address] [facility] [id number] [address] [place] [address] May, Chronic pain G89.29 [place] [address] [facility] [id number] [address] [place] [address] Apr, Bipolar I disorder, most rec ent episode (or current) mixed, moderate F31.62 [place] [address] [place] [id number] [address] [place] [address] Apr, [facility] [address] [id number] [address] [place] [address] Apr, Chronic pain G89.29 and DM n euro manif type II E11.49 [facility] [address] [id number] [address] [place] [address] Apr, [facility] [address] [id number] [address] [place] [address] Apr, Bipolar I disorder, most rec ent episode (or current) mixed, moderate F31.62 [facility] [address] [id number] [address] [place] [address] Apr, Chronic pain G89.29 [facility] [address] [id number] [address] [place] [address] Apr, Iliotibial band syndrome, le ft M76.32 [facility] [address] [id number] [address] [place] [address] Apr, Bipolar I disorder, most rec ent episode (or current) mixed, moderate F31.62 [facility] [address] [id number] [address] [place] [address] Mar, Bipolar I disorder, most rec ent episode (or current) mixed, moderate F31.62 [facility] [address] [id number] [address] [place] [address] Mar, Bipolar I disorder, most rec ent episode (or current) mixed, moderate F31.62 [facility] [address] [id number] [address] [place] [address] Mar, [facility] [address] [id number] [address] [place] [address] Mar, Bipolar I disorder, most rec ent episode (or current) mixed, moderate F31.62 [facility] [address] [facility] [id number] [address] [place] [address] Mar, Chronic pain G89.29 [facility] [address] [facility] [id number] [address] [place] [address] Mar, Bipolar I disorder, most rec ent episode (or current) mixed, moderate F31.62 [facility] [address] [facility] [id number] [address] [place] [address] Mar, Bipolar I disorder, most rec ent episode (or current) mixed, moderate F31.62 [facility] [address] [facility] [id number] [address] [place] [address] Mar, Acute pain of left knee M25. 562 ; Left hip pain M25.552 ; Generalized edema R60.1 and Tongue swelling R22.0 [facility] [address] [id number] [address] [place] [address] Mar, [facility] [address] [facility] [id number] [address] [place] [address] Feb, Chronic pain G89.29 [facility] [address] [facility] [id number] [address] [place] [address] Feb, Diabetes E11.9 [facility] [address] [id number] [address] [place] [address] January, Chronic pain G89.29 [facility] [address] [facility] [id number] [address] [place] [address] January, [facility] [address] [facility] [id number] [address] [place] [address] January, Bipolar I disorder, most rec ent episode (or current) mixed, moderate F31.62 [facility] [address] [id number] [address] [place] [address] Dec, Bipolar I disorder, most rec ent episode (or current) mixed, moderate F31.62 [facility] [address] [facility] [id number] [address] [place] [address] Dec, Chronic pain G89.29 [facility] [address] [facility] [id number] [address] [place] [address] Dec, Bipolar I disorder, most rec ent episode (or current) mixed, moderate F31.62 [facility] [address] [facility] [id number] [address] [place] [address] Dec, Diabetes E11.9 ; Essential h ypertension I10 ; Chronic pain G89.29 and Morbid obesity E66.01 [facility] [address] [facility] [id number] [address] [place] [address] Dec, [facility] [address] [facility] [id number] [address] [place] [address] Dec, Bipolar I disorder, most rec ent episode (or current) mixed, moderate F31.62 [facility] [address] [facility] [id number] [address] [place] [address] Dec, Bipolar I disorder, most rec ent episode (or current) mixed, moderate F31.62 [facility] [address] [place] [id number] [address] [place] [address] Nov, Chronic pain G89.29 [facility] [address] [facility] [id number] [address] [place] [address] Nov, Bipolar I disorder, most rec ent episode (or current) mixed, moderate F31.62 [facility] [address] [facility] [id number] [address] [place] [address] Nov, [facility] [address] [facility] [id number] [address] [place] [address] Nov, Bipolar I disorder, most rec ent episode (or current) mixed, moderate F31.62 [facility] [address] [facility] [id number] [address] [place] [address] Nov, Bipolar I disorder, most rec ent episode (or current) mixed, moderate F31.62 [facility] [address] [facility] [id number] [address] [place] [address] Nov, [facility] [address] [facility] [id number] [address] [place] [address] Nov, [facility] [address] [facility] [id number] [address] [place] [address] Nov, [facility] [address] [facility] [id number] [address] [place] [address] Oct, Chronic pain G89.29 [facility] [address] [facility] [id number] [address] [place] [address] Oct, Bipolar I disorder, most rec ent episode (or current) mixed, moderate F31.62 [facility] [address] [facility] [id number] [address] [place] [address] Oct, [facility] [address] [facility] [id number] [address] [place] [address] Oct, Chronic pain G89.29 ; Diabet es E11.9 ; Anxiety F41.9 and 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 [facility] [address] [facility] [id number] [address] [place] [address] Oct, [facility] [address] [facility] [id number] [address] [place] [address] Oct, Diabetes E11.9 [facility] [address] [facility] [id number] [address] [place] [address] Oct, Bipolar I disorder, most rec ent episode (or current) mixed, moderate F31.62 [facility] [address] [facility] [id number] [address] [place] [address] Sep, Chronic pain G89.29 [facility] [address] [facility] [id number] [address] [place] [address] Sep, Chronic pain G89.29 [facility] [address] [facility] [id number] [address] [place] [address] Aug, Chronic pain G89.29 [facility] [address] [facility] [id number] [address] [place] [address] Jul, [facility] [address] [place] [id number] [address] [place] [address] Jul, Diabetes E11.9 [facility] [address] [facility] [id number] [address] [place] [address] Jul, Chronic pain G89.29 [facility] [address] [facility] [id number] [address] [place] [address] Jul, Bipolar I disorder, most rec ent episode (or current) mixed, moderate F31.62 [place] [address] [facility] [id number] [address] [place] [address] Jun, Bipolar I disorder, most rec ent episode (or current) mixed, moderate F31.62 [place] [address] [facility] [id number] [address] [place] [address] Jun, [place] [address] [facility] [id number] [address] [place] [address] Jun, Bipolar I disorder, most rec ent episode (or current) mixed, moderate F31.62 [place] [address] [facility] [id number] [address] [place] [address] 30 May, 2016 Insomnia, unspecified type G 47.00 [place] [address] [facility] [id number] [address] [place] [address] May, Bipolar I disorder, most rec ent episode (or current) mixed, moderate F31.62 [place] [address] [facility] [id number] [address] [place] [address] 14 May, 2016 [place] [address] [facility] [id number] [address] [place] [id number] 08 May, 2016 Bipolar I disorder, most rec ent episode (or current) mixed, moderate F31.62 [place] [address] [facility] [id number] [address] [place] [address] 06 May, 2016 Diabetes E11.9 and Essential hypertension I10 [place] [address] [facility] [id number] [address] [place] [address] Apr, Chronic pain G89.29 [facility] [address] [facility] [id number] [address] [place] [address] Apr, Bipolar I disorder, most rec ent episode (or current) mixed, moderate F31.62 [facility] [address] [facility] [id number] [address] [place] [address] Apr, [place] [address] [facility] [id number] [address] [place] [address] Apr, [place] [address] [facility] [id number] [address] [place] [address] Mar, Chronic pain G89.29 ; Headac he, unspecified headache type R51 ; Neuropathy G62.9 ; Pain of right hip joint M25.551 and Essential hypertension I10 [place] [address] [facility] [id number] [address] [place] [address] Mar, Chronic pain G89.29 [place] [address] [facility] [id number] [address] [place] [address] Mar, Bipolar I disorder, most rec ent episode (or current) mixed, moderate F31.62 [place] [address] [facility] [id number] [address] [place] [address] Feb, Bipolar I disorder, most rec ent episode (or current) mixed, moderate F31.62 and Insomnia, unspecified type G47.00 [place] [address] [facility] [id number] [address] [place] [address] Feb, Chronic pain G89.29 [place] [address] [facility] [id number] [address] [place] [address] Feb, Bipolar I disorder, most rec ent episode (or current) mixed, moderate F31.62 [place] [address] [facility] [id number] [address] [place] [address] January, Bipolar I disorder, most rec ent episode (or current) mixed, moderate F31.62 [place] [address] [facility] [id number] [address] [place] [address] January, Chronic pain G89.29 [facility] [address] [id number] [address] [place] [address] January, Chronic pain G89.29 and Esse ntial hypertension I10 [facility] [address] [facility] [id number] [address] [place] [address] January, Bipolar I disorder, most rec ent episode (or current) mixed, moderate F31.62 [facility] [address] [facility] [id number] [address] [place] [address] Dec, [facility] [address] [facility] [id number] [address] [place] [address] Dec, [facility] [address] [facility] [id number] [address] [place] [address] Dec, [facility] [address] [facility] [id number] [address] [place] [address] Dec, [facility] [address] [facility] [id number] [address] [place] [address] Nov, Reactive airway disease J45. 909 [facility] [address] [facility] [id number] [address] [place] [address] Nov, [facility] [address] [facility] [id number] [address] [place] [address] Nov, [facility] [address] [facility] [id number] [address] [place] [address] Nov, [facility] [address] [facility] [id number] [address] [place] [address] Nov, [facility] [address] [facility] [id number] [address] [place] [address] Nov, Onychomycosis B35.1 ; Hammer toe M20.40 ; [place] or callus L84 and DM neuro manif type II E11.49 [facility] [address] [facility] [id number] [address] [place] [address] Nov, Chronic pain G89.29 ; Leukoc ytosis D72.829 and Diabetes E11.9 [place] [address] [address] Nov, [place] [address] [address] Oct, Bronchitis J40 [place] [address] [address] Oct, [place] [address] [address] Oct, [place] [address] [address] Oct, Mastoiditis, unspecified lat erality H70.90 and Type 2 diabetes mellitus with complication E11.8 [place] [address] [address] Sep, [place] [address] [address] Sep, Dysuria R30.0 ; Cough R05 ; Benign prostatic hyperplasia with lower urinary tract symptoms, unspecified morphology N40.1 ; Hypokalemia E87.6 and Eustachian tube dysfunction, unspecified laterality H69.80 [place] [address] [id number] Sep, Moderate mixed bipolar I dis order F31.62 [place] [address] [address] Sep, Hypokalemia E87.6 [place] [address] [address] Sep, [place] [address] [id number] Sep, Upper respiratory tract infe ction, unspecified type J06.9 [place] [address] [id number] [address] [place] [id number] Aug, [facility] [address] [id number] [address] [place] [id number] Aug, Dysuria R30.0 [facility] [address] [id number] [address] [place] [id number] Aug, [facility] [address] [id number] [address] [place] [id number] Jul, [facility] [address] [id number] [address] [place] [id number] Jul, [facility] [address] [id number] [address] [place] [id number] Jul, [facility] [address] [id number] [address] [place] [id number] Jul, [facility] [address] [id number] [address] [place] [id number] Jun, [facility] [address] [id number] [address] [place] [id number] Jun, [facility] [address] [id number] [address] [place] [id number] Jun, [facility] [address] [id number] [address] [place] [id number] May, [facility] [address] [id number] [address] [place] [id number] May, Bipolar I disorder, most rec ent episode (or current) mixed, moderate 296.62 [facility] [address] [id number] [address] [place] [address] 16 May, 2015 [facility] [address] [id number] [address] [place] [address] 02 May, 2015 Bipolar I disorder, most rec ent episode (or current) mixed, moderate 296.62 and Major depressive disorder, recurrent episode, severe, specified as with psychotic behavior 296.34 [facility] [address] [facility] [id number] [address] [place] [address] May, Bipolar I disorder, most rec ent episode (or current) mixed, moderate 296.62 [facility] [address] [facility] [id number] [address] [place] [address] May, [facility] [address] [facility] [id number] [address] [place] [address] Apr, [facility] [address] [facility] [id number] [address] [place] [address] Apr, [facility] [address] [place] [id number] [address] [place] [address] Apr, Unspecified disorder of kidn ey and ureter 593.9 and Diabetes mellitus type 2, uncontrolled 250.02 [facility] [address] [id number] [address] [place] [address] Apr, [facility] [address] [facility] [id number] [address] [place] [address] Apr, [facility] [address] [facility] [id number] [address] [place] [address] Apr, [facility] [address] [facility] [id number] [address] [place] [address] Apr, [facility] [address] [facility] [id number] [address] [place] [address] Apr, Diabetes mellitus type II, u ncontrolled 250.02 [facility] [address] [facility] [id number] [address] [place] [address] Apr, [facility] [address] [facility] [id number] [address] [place] [address] Mar, [facility] [address] [facility] [id number] [address] [place] [address] Mar, [facility] [address] [id number] [address] [place] [address] Mar, [facility] [address] [id number] [address] [place] [address] Mar, Major depressive disorder, r ecurrent episode, severe, specified as with psychotic behavior 296.34 and Bipolar I disorder, most recent episode (or current) mixed, moderate 296.62 [facility] [address] [id number] [address] [place] [address] Mar, Diabetes 250.00 ; Anuria 788 .5 ; Nausea and vomiting 787.01 and Diarrhea 787.91 [facility] [address] [id number] [address] [place] [address] Mar, Diabetes 250.00 [facility] [address] [address] Mar, [facility] [address] [address] Mar, Diabetes 250.00 [facility] [address] [id number] [address] [place] [address] Mar, [facility] [address] [address] Mar, [facility] [address] [id number] [address] [place] [address] Mar, [facility] [address] [id number] [address] [place] [address] Mar, [facility] [address] [address] Mar, Bipolar I disorder, most rec ent episode (or current) mixed, moderate 296.62 and Major depressive disorder, recurrent episode, severe, specified as with psychotic behavior 296.34 [facility] [address] [id number] [address] [place] [address] Mar, Magnesium deficiency 275.2 ; Hypokalemia 276.8 ; Nausea & vomiting 787.01 and Diabetes mellitus type 2, uncontrolled 250.02 [facility] [address] [id number] [address] [place] [address] Feb, [facility] [address] [address] Feb, Bipolar I disorder, most rec ent episode (or current) mixed, moderate 296.62 [facility] [address] [place] [id number] [place] [address] Feb, Nausea and vomiting 787.01 ; Left elbow pain 719.42 ; Anuria 788.5 and Diabetes 250.00 [facility] [address] [place] [id number] [place] [address] Feb, [facility] [address] [address] Feb, Hypopotassemia 276.8 and Hyp okalemia 276.8 [place] [address] [address] Feb, Hypopotassemia 276.8 and Hyp okalemia 276.8 [place] [address] [place] [id number] [address] [place] [address] Feb, Seborrheic keratoses 702.19 [facility] [address] [id number] [address] [place] [address] Feb, Hypopotassemia 276.8 and Low magnesium levels 275.2 [facility] [address] [id number] [address] [place] [address] January, [facility] [address] [id number] [address] [place] [address] January, [facility] [address] [address] January, [facility] [address] [place] [id number] [address] [place] [address] January, Scalp lesion 709.9 [facility] [address] [address] January, [facility] [address] [id number] [address] [place] [address] Dec, Tear of medial cartilage or meniscus of knee, current 836.0 and Chondromalacia 733.92 [facility] [address] [id number] [address] [place] [address] Dec, [facility] [address] [id number] [address] [place] [address] Dec, [facility] [address] [id number] [address] [place] [address] Dec, Squamous cell carcinoma, 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 [facility] [address] [id number] [address] [place] [address] 14 Dec, 2014 [facility] [address] [id number] [address] [place] [address] Dec, [facility] [address] [id number] [address] [place] [address] Nov, [facility] [address] [id number] [address] [place] [address] Nov, [facility] [address] [id number] [address] [place] [address] Nov, [facility] [address] [id number] [address] [place] [address] Nov, [facility] [address] [id number] [address] [place] [address] Nov, [facility] [address] [id number] [address] [place] [address] Nov, [facility] [address] [id number] [address] [place] [address] Nov, [facility] [address] [id number] [address] [place] [address] Nov, [facility] [address] [id number] [address] [place] [address], [place] [address] Nov, 2014 [facility] [address] [id number] [address] [place] [address], [place] [address] Nov, [facility] [address] [id number] [address] [place] [address], [place] [address] Nov, 2014 [facility] [address] [id number] [address] [place] [address], [place] [address] Nov, 2014 [facility] [address] [id number] [address] [place] [address], [place] [address] Oct, 2014 [facility] [address] [id number] [address] [place] [address], [place] [address] Oct, 2014 [facility] [address] [id number] [address] [place] [address], [place] [address] Oct, 2014 [facility] [address] [id number] [address] [place] [address], [place] [address] Oct, 2014 [facility] [address] [id number] [address] [place] [address], [place] [address] Oct, 2014 [facility] [address] [id number] [address] [place] [address], [place] [address] Oct, 2014 [facility] [address] [id number] [address] [place] [address] Oct, 2014 [facility] [address] [id number] [address] [place] [address] Oct, 2014 [facility] [address] [id number] [address] [place] [address], [place] [address] Oct, [facility] [address] [id number] [address] [place] [address] Sep, [facility] [address] [id number] [address] [place] [address] Sep, [facility] [address] [id number] [address] [place] [address] Sep, [facility] [address] [id number] [address] [place] [address], [place] [address] Sep, [facility] [address] [id number] [address] [place] [address], [place] [address] Sep, [facility] [address] [id number] [address] [place] [address], [place] [address] Sep, [facility] [address] [id number] [address] [place] [address], [place] [address] Sep, [facility] [address] [id number] [address] [place] [address], [place] [address] Sep, [facility] [address] [id number] [address] [place] [address], [place] [address] Sep, [facility] [address] [id number] [address] [place] [address], [place] [address] Sep, [facility] [address] [id number] [address] [place] [address], [place] [address] Sep, [facility] [address] [id number] [address] [place] [address], [place] [address] Sep, [facility] [address] [id number] [address] [place] [address], [place] [address] Sep, [facility] [address] [id number] [address] [place] [address], [place] [address] Sep, [facility] [address] [id number] [address] [place] [address], [place] [address] Sep, [facility] [address] [id number] [address] [place] [address], [place] [address] Sep, [facility] [address] [id number] [address] [place] [address], [place] [address] Aug, [facility] [address] [id number] [address] [place] [address], [place] [address] Aug, [facility] [address] [id number] [facility] [place] [address] Aug, [facility] [address] [id number] [facility] [place] [address] Aug, [facility] [address] [id number] [facility] [place] [address] Aug, [facility] [address] [id number] [facility] [place] [address] Aug, [facility] [address] [id number] [facility] [place] [address] Aug, [facility] [address] [id number] [facility] [place] [address] Aug, [facility] [address] [id number] [facility] [place] [address] Aug, [facility] [address] [id number] [address] [place] [address], [place] [address] Aug, [facility] [address] [id number] [address] [place] [address], [place] [address] Aug, [facility] [address] [place] [id number] Aug, [facility] [address] [id number] [address] [place] [address], [place] [address] Aug, [facility] [address] [id number] [address] [place] [address], [place] [address] Aug, [facility] [address] [id number] [address] [place] [address], [place] [address] Aug, [facility] [address] [id number] [address] [place] [address], [place] [address] Aug, [facility] [address] [id number] [facility] [place] [address] Aug, [facility] [address] [id number] [facility] [place] [address] Aug, [facility] [address] [id number] [address] [place] [address], [place] [address] Aug, [facility] [address] [id number] [address] [place] [address], [place] [address] Aug, [facility] [address] [id number] [address] [place] [address], [place] [address] Aug, [facility] [address] [id number] [address] [place] [address], [place] [address] Aug, [facility] [address] [id number] [address] [place] [address], [place] [address] Aug, [facility] [address] [id number] [address] [place] [address], [place] [address] Aug, [facility] [address] [id number] [address] [place] [address], [place] [address] Aug, [facility] [address] [id number] [address] [place] [address], [place] [address] Aug, [facility] [address] [id number] [address] [place] [address], [place] [address] Aug, [facility] [address] [id number] [address] [place] [address], [place] [address] Aug, [facility] [address] [id number] [address] [place] [address], [place] [address] Aug, [facility] [address] [id number] [address] [place] [address], [place] [address] Aug, [facility] [address] [id number] [address] [place] [address], [place] [address] Jul, [facility] [address] [id number] [address] [place] [address], [place] [address] Jul, [facility] [address] [id number] [address] [place] [address], [place] [address] Jul, [facility] [address] [id number] [address] [place] [address] Jul, [facility] [address] [id number] [address] [place] [address], [place] [address] Jul, [facility] [address] [id number] [address] [place] [address], [place] [address] Jul, [facility] [address] [id number] [address] [place] [address], [place] [address] Jul, [facility] [address] [id number] [address] [place] [address], [place] [address] Jul, [facility] [address] [id number] [address] [place] [address], [place] [address] Jul, [facility] [address] [id number] [address] [place] [address], [place] [address] Jul, [facility] [address] [id number] [address] [place] [address], [place] [address] Jun, [facility] [address] [id number] [address] [place] [address], [place] [address] Jun, [facility] [address] [id number] [address] [place] [address] Jun, [facility] [address] [id number] [address] [place] [address] Jun, [facility] [address] [id number] [address] [place] [address] Jun, [facility] [address] [id number] [address] [place] [address] Jun, [facility] [address] [id number] [address] [place] [address] Jun, [facility] [address] [id number] [address] [place] [address] Jun, [facility] [address] [id number] [address] [place] [address], [place] [address] Jun, [facility] [address] [id number] [facility] [place] [address] Jun, 2013 [facility] [address] [id number] [facility] [place] [address] 29 Sep, 2013 [facility] [address] [id number] [facility] [place] [address] 29 Sep, 2013 [facility] [address] [id number] [address] [place] [address], [place] [address] 26 Sep, 2013 [facility] [address] [id number] [address] [place] [address], [place] [address] 26 Sep, 2013 [facility] [address] [id number] [address] [place] [address], [place] [address] 17 Sep, 2013 [facility] [address] [id number] [address] [place] [address], [place] [address] 17 Sep, 2013 [facility] [address] [id number] [address] [place] [address], [place] [address] 15 May, 2013 [facility] [address] [id number] [address] [place] [address], [place] [address] 15 Sep, 2013 [facility] [address] [id number] [address] [place] [address], [place] [address] 15 Sep, 2013 [facility] [address] [id number] [address] [place] [address], [place] [address] 15 May, 2013 [facility] [address] [id number] [address] [place] [address], [place] [address] 10 Sep, 2013 [facility] [address] [id number] [address] [place] [address], [place] [address] 10 Sep, 2013 [facility] [address] [id number] [address] [place] [address], [place] [address] 09 Sep, 2013 [facility] [address] [id number] [address] [place] [address], [place] [address] 09 Sep, 2013 [facility] [address] [id number] [address] [place] [address], [place] [address] May, [facility] [address] [id number] [facility] [place] [address] May, [facility] [address] [id number] [facility] [place] [address] Apr, [facility] [address] [id number] [facility] [place] [address] Apr, [facility] [address] [id number] [address] [place] [address], [place] [address] Apr, [facility] [address] [id number] [address] [place] [address], [place] [address] Apr, [facility] [address] [id number] [address] [place] [address], [place] [address] Apr, [facility] [address] [id number] [address] [place] [address], [place] [address] Apr, [facility] [address] [id number] [address] [place] [address], [place] [address] Apr, [facility] [address] [id number] [address] [place] [address], [place] [address] Apr, [facility] [address] [id number] [address] [place] [address], [place] [address] Apr, [facility] [address] [id number] [address] [place] [address], [place] [address] Apr, [facility] [address] [id number] [address] [place] [address], [place] [address] Apr, [facility] [address] [id number] [address] [place] [address], [place] [address] Apr, [facility] [address] [id number] [address] [place] [address], [place] [address] Apr, [facility] [address] [id number] [address] [place] [place] [address], [place] [address] Apr, [facility] [address] [id number] [address] [place] [address], [place] [address] Apr, [facility] [address] [id number] [address] [place] [address], [place] [address] Mar, [facility] [address] [id number] [address] [place] [address], [place] [address] Mar, [facility] [address] [id number] [address] [place] [address], [place] [address] Mar, [facility] [address] [id number] [address] [place] [address], [place] [address] Mar, [facility] [address] [id number] [address] [place] [address], [place] [address] Mar, [facility] [address] [id number] [address] [place] [address], [place] [address] Mar, [facility] [address] [id number] [address] [place] [address], [place] [address] Mar, [facility] [address] [id number] [address] [place] [address], [place] [address] Mar, [facility] [address] [id number] [address] [place] [address], [place] [address] Mar, [facility] [address] [id number] [address] [place] [address], [place] [address] Mar, [facility] [address] [id number] [address] [place] [address], [place] [address] Mar, 2013 [facility] [address] [id number] [address] [place] [address], [place] [address] Mar, 2013 [facility] [address] [id number] [address] [place] [address], [place] [address] Mar, [facility] [address] [id number] [address] [place] [address], [place] [address] Mar, 2013 [facility] [address] [id number] [address] [place] [address], [place] [address] 09 Mar, 2014 [facility] [address] [id number] [facility] [place] [address] Mar, [facility] [address] [id number] [facility] [place] [address] Mar, [facility] [address] [id number] [facility] [place] [address] Mar, [facility] [address] [id number] [facility] [place] [address] Feb, [facility] [address] [id number] [facility] [place] [address] Feb, [facility] [address] [id number] [address] [place] [address], [place] [address] Feb, [facility] [address] [id number] [address] [place] [address], [place] [address] Feb, [facility] [address] [id number] [address] [place] [address], [place] [address] Feb, [facility] [address] [id number] [address] [place] [address], [place] [address] Feb, [facility] [address] [id number] [address] [place] [address], [place] [address] Feb, [facility] [address] [id number] [address] [place] [address], [place] [address] Feb, [facility] [address] [id number] [address] [place] [address], [place] [address] Feb, [facility] [address] [id number] [address] [place] [address], [place] [address] Feb, [facility] [address] [id number] [address] [place] [address], [place] [address] Feb, [facility] [address] [id number] [address] [place] [address], [place] [address] Feb, [facility] [address] [id number] [address] [place] [address], [place] [address] Feb, [facility] [address] [id number] [address] [place] [address], [place] [address] Feb, [facility] [address] [id number] [address] [place] [address], [place] [address] January, [facility] [address] [id number] [address] [place] [address], [place] [address] January, [facility] [address] [id number] [address] [place] [address], [place] [address] January, [facility] [address] [id number] [address] [place] [address], [place] [address] January, [facility] [address] [id number] [address] [place] [address], [place] [address] January, [facility] [address] [id number] [address] [place] [place] [address], [place] [address] January, [facility] [address] [id number] [address] [place] [place] [address], [place] [address] January, [facility] [address] [id number] [address] [place] [place] [address], [place] [address] January, [facility] [address] [id number] [address] [place] [place] [address], [place] [address] January, [facility] [address] [id number] [address] [place] [place] [address], [place] [address] January, [facility] [address] [id number] [address] [place] [place] [address], [place] [address] January, [facility] [address] [id number] [address] [place] [place] [address], [place] [address] January, [facility] [address] [id number] [address] [place] [place] [address], [place] [address] January, [facility] [address] [id number] [address] [place] [place] [address], [place] [address] January, [facility] [address] [id number] [facility] [place] [address] Dec, [facility] [address] [id number] [facility] [place] [address] Dec, [facility] [address] [id number] [facility] [place] [address] Dec, [facility] [address] [id number] [address] [place] [place] [address], [place] [address] Dec, [facility] [address] [id number] [address] [place] [address], [place] [address] Dec, [facility] [address] [id number] [address] [place] [address], [place] [address] Dec, [facility] [address] [id number] [address] [place] [place] [address], [place] [address] Dec, [facility] [address] [id number] [address] [place] [address], [place] [address] Dec, [facility] [address] [id number] [address] [place] [address], [place] [address] Dec, [facility] [address] [id number] [address] [place] [address], [place] [address] Dec, [facility] [address] [id number] [address] [place] [address], [place] [address] Nov, [facility] [address] [id number] [address] [place] [address], [place] [address] Nov, [facility] [address] [id number] [address] [place] [address], [place] [address] Nov, [facility] [address] [id number] [address] [place] [address], [place] [address] Nov, [facility] [address] [id number] [address] [place] [address], [place] [address] Nov, [facility] [address] [id number] [address] [place] [address], [place] [address] Nov, [facility] [address] [id number] [facility] [place] [address] Nov, [facility] [address] [id number] [address] [place] [address], [place] [address] Nov, [facility] [address] [id number] [facility] [place] [address] Nov, [facility] [address] [id number] [address] [place] [address], [place] [address] Nov, [facility] [address] [id number] [address] [place] [address], [place] [address] Oct, [facility] [address] [id number] [address] [place] [address], [place] [address] Oct, [facility] [address] [id number] [address] [place] [address], [place] [address] Oct, [facility] [address] [id number] [address] [place] [address], [place] [address] Oct, [facility] [address] [id number] [address] [place] [address], [place] [address] Oct, [facility] [address] [id number] [address] [place] [address], [place] [address] Oct, [facility] [address] [id number] [address] [place] [address], [place] [address] 14 Oct, 2013 [facility] [address] [id number] [address] [place] [address], [place] [address] Oct, [facility] [address] [id number] [address] [place] [address], [place] [address] Oct, [facility] [address] [id number] [address] [place] [address], [place] [address] Oct, [facility] [address] [id number] [address] [place] [address], [place] [address] 04 Oct, 2013 [facility] [address] [id number] [address] [place] [address], [place] [address] 04 Oct, 2013 [facility] [address] [id number] [address] [place] [address], [place] [address] Oct, [facility] [address] [id number] [address] [place] [address], [place] [address] Oct, [facility] [address] [id number] [address] [place] [address], [place] [address] Sep, [facility] [address] [id number] [address] [place] [address], [place] [address] Sep, [facility] [address] [id number] [address] [place] [address], [place] [address] Sep, [facility] [address] [id number] [address] [place] [address], [place] [address] Sep, [facility] [address] [id number] [address] [place] [address], [place] [address] Sep, [facility] [address] [id number] [address] [place] [address], [place] [address] Sep, [facility] [address] [id number] [address] [place] [address], [place] [address] Sep, [facility] [address] [id number] [address] [place] [address], [place] [address] Sep, [facility] [address] [id number] [address] [place] [address], [place] [address] Sep, [facility] [address] [id number] [address] [place] [address], [place] [address] Sep, [facility] [address] [id number] [address] [place] [address], [place] [address] Aug, [facility] [address] [id number] [address] [place] [address], [place] [address] Aug, [facility] [address] [id number] [address] [place] [address], [place] [address] Jul, [facility] [address] [id number] [address] [place] [address], [place] [address] Jul, [facility] [address] [id number] [address] [place] [address], [place] [address] Jul, [facility] [address] [id number] [address] [place] [address], [place] [address] Jul, [facility] [address] [id number] [address] [place] [address], [place] [address] Jul, [facility] [address] [id number] [address] [place] [address], [place] [address] Jul, [facility] [address] [id number] [address] [place] [address] Jul, [facility] [address] [id number] [address] [place] [address], [place] [address] Jul, [facility] [address] [id number] [address] [place] [address] Jul, [facility] [address] [id number] [address] [place] [address] Jul, [facility] [address] [id number] [address] [place] [address] Jul, [facility] [address] [id number] [address] [place] [address] Jul, [facility] [address] [id number] [address] [place] [address] Jul, [facility] [address] [id number] [address] [place] [address] Jul, [facility] [address] [id number] [address] [place] [address] Jul, [facility] [address] [id number] [address] [place] [address] Jul, [facility] [address] [id number] [address] [place] [address], [place] [address] 05 Jul, 2012 [facility] [address] [id number] [address] [place] [address], [place] [address] Jul, 2012 [facility] [address] [id number] [address] [place] [address], [place] [address] Jul, 2012 [facility] [address] [id number] [address] [place] [address], [place] [address] Jun, 2012 [facility] [address] [id number] [address] [place] [address], [place] [address] Jun, 2012 [facility] [address] [id number] [address] [place] [address], [place] [address] Jun, 2012 [facility] [address] [id number] [address] [place] [address], [place] [address] Jun, 2012 [facility] [address] [id number] [address] [place] [address], [place] [address] Jun, 2012 [facility] [address] [id number] [address] [place] [address], [place] [address] Jun, 2012 [facility] [address] [id number] [address] [place] [address], [place] [address] Jun, 2012 [facility] [address] [id number] [address] [place] [address], [place] [address] Jun, [facility] [address] [id number] [address] [place] [address], [place] [address] Jun, [facility] [address] [id number] [address] [place] [address] Jun, [facility] [address] [id number] [address] [place] [address], [place] [address] Jun, [facility] [address] [id number] [address] [place] [address], [place] [address] May, 2012 [facility] [address] [id number] [address] [place] [address], [place] [address] 25 May, 2012 [facility] [address] [id number] [address] [place] [address], [place] [address] 19 May, 2012 [facility] [address] [id number] [address] [place] [address], [place] [address] 17 May, 2012 [facility] [address] [id number] [address] [place] [address], [place] [address] 11 May, 2012 [facility] [address] [id number] [address] [place] [address], [place] [address] 10 May, 2012 [facility] [address] [id number] [address] [place] [place] [address], [place] [address] 09 May, 2013 [facility] [address] [id number] [address] [place] [address], [place] [address] 05 May, 2013 [facility] [address] [id number] [address] [place] [address], [place] [address] Apr, [facility] [address] [id number] [address] [place] [place] [address], [place] [address] Apr, [facility] [address] [id number] [address] [place] [place] [address], [place] [address] Apr, [facility] [address] [id number] [address] [place] [address], [place] [address] Apr, [facility] [address] [id number] [address] [place] [address], [place] [address] Apr, [facility] [address] [id number] [address] [place] [address], [place] [address] Mar, [facility] [address] [id number] [address] [place] [address], [place] [address] Mar, [facility] [address] [id number] [address] [place] [address], [place] [address] Mar, [facility] [address] [id number] [address] [place] [address], [place] [address] Mar, [facility] [address] [id number] [address] [place] [address], [place] [address] Mar, [facility] [address] [id number] [address] [place] [address], [place] [address] Mar, [facility] [address] [id number] [address] [place] [address], [place] [address] Mar, [facility] [address] [id number] [address] [place] [address], [place] [address] Mar, [facility] [address] [id number] [address] [place] [address], [place] [address] Feb, [facility] [address] [id number] [address] [place] [address], [place] [address] Feb, [facility] [address] [id number] [address] [place] [address], [place] [address] January, [facility] [address] [id number] [address] [place] [address], [place] [address] January, [facility] [address] [id number] [address] [place] [address], [place] [address] Dec, [facility] [address] [id number] [address] [place] [address], [place] [address] Dec, [facility] [address] [id number] [address] [place] [address], [place] [address] Nov, [facility] [address] [id number] [address] [place] [address], [place] [address] Nov, [facility] [address] [id number] [address] [place] [address], [place] [address] Nov, [facility] [address] [id number] [address] [place] [address], [place] [address] Nov, [facility] [address] [id number] [address] [place] [address], [place] [address] Oct, [facility] [address] [id number] [address] [place] [address], [place] [address] Oct, [facility] [address] [id number] [address] [place] [address], [place] [address] 26 Oct, 2012 [facility] [address] [id number] [address] [place] [address], [place] [address] 26 Oct, 2012 [facility] [address] [id number] [address] [place] [address], [place] [address] 16 Oct, 2012 [facility] [address] [id number] [address] [place] [address], [place] [address] 14 Oct, 2012 [facility] [address] [id number] [address] [place] [address], [place] [address] 08 Oct, 2012 [facility] [address] [id number] [address] [place] [address], [place] [address] 07 Oct, 2012 [facility] [address] [id number] [address] [place] [address], [place] [address] 03 Oct, 2012 [facility] [address] [id number] [address] [place] [address], [place] [address] 30 Sep, 2012 [facility] [address] [id number] [address] [place] [address], [place] [address] Sep, [facility] [address] [id number] [address] [place] [address], [place] [address] Sep, [facility] [address] [id number] [address] [place] [address], [place] [address] Sep, [facility] [address] [id number] [address] [place] [address], [place] [address] Sep, [facility] [address] [id number] [address] [place] [address], [place] [address] Sep, [facility] [address] [id number] [address] [place] [address], [place] [address] Sep, [facility] [address] [id number] [address] [place] [address], [place] [address] 08 Sep, 2012 [facility] [address] [id number] [address] [place] [address], [place] [address] Aug, [facility] [address] [id number] [address] [place] [address], [place] [address] Aug, [facility] [address] [id number] [address] [place] [address], [place] [address] Aug, [facility] [address] [id number] [address] [place] [address], [place] [address] Aug, [facility] [address] [id number] [address] [place] [address], [place] [address] Aug, [facility] [address] [id number] [address] [place] [address], [place] [address] Aug, [facility] [address] [id number] [address] [place] [address], [place] [address] Aug, [facility] [address] [id number] [address] [place] [address], [place] [address] Aug, [facility] [address] [id number] [address] [place] [address], [place] [address] Jul, [facility] [address] [id number] [address] [place] [address], [place] [address] Jul, [facility] [address] [id number] [address] [place] [address], [place] [address] Jul, [facility] [address] [id number] [address] [place] [address], [place] [address] Jul, [facility] [address] [id number] [address] [place] [address], [place] [address] Jul, [facility] [address] [id number] [address] [place] [address], [place] [address] Jul, [facility] [address] [id number] [address] [place] [address], [place] [address] Jun, [facility] [address] [id number] [address] [place] [address], [place] [address] Jun, [facility] [address] [id number] [address] [place] [address], [place] [address] 23 Jun, 2012 [facility] [address] [id number] [address] [place] [place] [address], [place] [address] 23 Jun, 2012 [facility] [address] [id number] [address] [place] [place] [address], [place] [address] Jun, [facility] [address] [id number] [address] [place] [address], [place] [address] Jun, [facility] [address] [id number] [address] [place] [address], [place] [address] 19 Jun, 2012 [facility] [address] [id number] [address] [place] [address], [place] [address] 10 Jun, 2012 [facility] [address] [id number] [address] [place] [address], [place] [address] 10 Jun, 2012 [facility] [address] [id number] [address] [place] [address], [place] [address] 26 May, 2012 [facility] [address] [id number] [address] [place] [address], [place] [address] 24 May, 2012 [facility] [address] [id number] [address] [place] [address], [place] [address] 18 May, 2012 [facility] [address] [id number] [address] [place] [address], [place] [address] 30 Apr, 2012 [facility] [address] [id number] [address] [place] [address], [place] [address] 29 Apr, 2012 [facility] [address] [id number] [address] [place] [address], [place] [address] 18 Apr, 2012 [facility] [address] [id number] [address] [place] [address], [place] [address] 14 Apr, 2012 [facility] [address] [id number] [address] [place] [address], [place] [address] Apr, [facility] [address] [id number] [address] [place] [address], [place] [address] Apr, [facility] [address] [id number] [address] [place] [address], [place] [address] Mar, [facility] [address] [id number] [address] [place] [address], [place] [address] Mar, [facility] [address] [id number] [address] [place] [address], [place] [address] Mar, [facility] [address] [id number] [address] [place] [address], [place] [address] Mar, [facility] [address] [id number] [address] [place] [address], [place] [address] Feb, [facility] [address] [id number] [address] [place] [address], [place] [address] Feb, [facility] [address] [id number] [address] [place] [address], [place] [address] Feb, [facility] [address] [id number] [address] [place] [address], [place] [address] Feb, [facility] [address] [id number] [address] [place] [address], [place] [address] Feb, [facility] [address] [id number] [address] [place] [address], [place] [address] January, [facility] [address] [id number] [address] [place] [address], [place] [address] January, [facility] [address] [id number] [address] [place] [address], [place] [address] January, [facility] [address] [id number] [address] [place] [address], [place] [address] January, [facility] [address] [id number] [address] [place] [address], [place] [address] January, [facility] [address] [id number] [address] [place] [address], [place] [address] January, [facility] [address] [id number] [address] [place] [address], [place] [address] 24 Dec, 2011 [facility] [address] [id number] [address] [place] [address], [place] [address] 24 Dec, 2011 [facility] [address] [id number] [address] [place] [address], [place] [address] 17 Dec, 2011 [facility] [address] [id number] [address] [place] [address], [place] [address] 09 Dec, 2011 [facility] [address] [id number] [address] [place] [address], [place] [address] 06 Dec, 2011 [facility] [address] [id number] [address] [place] [address], [place] [address] 27 Nov, 2011 [facility] [address] [id number] [address] [place] [address], [place] [address] 14 Nov, 2011 [facility] [address] [id number] [address] [place] [address], [place] [address] 12 Nov, 2011 [facility] [address] [id number] [address] [place] [address], [place] [address] 07 Nov, 2011 [facility] [address] [id number] [address] [place] [address], [place] [address] 29 Oct, 2011 [facility] [address] [id number] [address] [place] [address], [place] [address] 28 Oct, 2011 [facility] [address] [id number] [address] [place] [address], [place] [address] 24 Oct, 2011 [facility] [address] [id number] [address] [place] [address], [place] [address] 13 Oct, 2011 [facility] [address] [id number] [address] [place] [address], [place] [address] 08 Oct, 2011 [facility] [address] [id number] [address] [place] [place] [address], [place] [address] 31 Sep, 2011 [facility] [address] [id number] [address] [place] [place] [address], [place] [address] Sep, [facility] [address] [id number] [address] [place] [place] [address], [place] [address] Sep, [facility] [address] [id number] [address] [place] [place] [address], [place] [address] Sep, [facility] [address] [id number] [address] [place] [address], [place] [address] Sep, [facility] [address] [id number] [address] [place] [address], [place] [address] Sep, [facility] [address] [id number] [address] [place] [address], [place] [address] Aug, [facility] [address] [id number] [address] [place] [address], [place] [address] Aug, [facility] [address] [id number] [address] [place] [address], [place] [address] Aug, [facility] [address] [id number] [address] [place] [address] Jul, [facility] [address] [id number] [address] [place] [place] [address], [place] [address] Jul, [facility] [address] [id number] [address] [place] [address] Jul, [facility] [address] [id number] [address] [place] [address] Jul, [facility] [address] [id number] [address] [place] [address] Jun, [facility] [address] [id number] [address] [place] [address], [place] [address] Jun, [facility] [address] [id number] [address] [place] [address] Jun, [facility] [address] [id number] [address] [place] [address] Jun, [facility] [address] [id number] [address] [place] [address] 10 Jun, 2011 [facility] [address] [id number] [address] [place] [address], [place] [address] 10 Jun, 2011 [facility] [address] [id number] [address] [place] [place] [address], [place] [address] 11 Mar, 2011 [facility] [address] [id number] [address] [place] [address], [place] [address] 18 Dec, 2010 [facility] [address] [id number] [address] [place] [address], [place] [address] 11 Dec, 2010 [facility] [address] [id number] [address] [place] [address], [place] [address] 18 Nov, 2010 [facility] [address] [id number] [address] [place] [address], [place] [address] 16 Nov, 2010 [facility] [address] [id number] [address] [place] [address], [place] [address] 10 Sep, 2010 [facility] [address] [id number] [address] [place] [address], [place] [address] 31 Aug, 2010 [facility] [address] [id number] [address] [place] [address], [place] [address] 29 Aug, 2010 [facility] [address] [id number] [address] [place] [address], [place] [address] 29 Aug, 2010 [facility] [address] [id number] [address] [place] [address], [place] [address] 29 Aug, 2010 [facility] [address] [id number] [address] [place] [address], [place] [address] 27 Aug, 2010 [facility] [address] [id number] [address] [place] [address], [place] [address] 14 Aug, 2010 [facility] [address] [id number] [address] [place] [address], [place] [address] 08 Aug, 2010 [facility] [address] [id number] [address] [place] [address], [place] [address] 08 Aug, 2010 [facility] [address] [id number] [address] [place] [place] [address], [place] [address] 07 Aug, 2010 [facility] [address] [id number] [address] [place] [address], [place] [address] Aug, [facility] [address] [id number] [address] [place] [address], [place] [address] Aug, [facility] [address] [id number] [address] [place] [address], [place] [address] Aug, [facility] [address] [id number] [address] [place] [address], [place] [address] Jul, [facility] [address] [id number] [address] [place] [address], [place] [address] Jul, [facility] [address] [id number] [address] [place] [address], [place] [address] Jul, [facility] [address] [id number] [address] [place] [address], [place] [address] Jul, [facility] [address] [id number] [address] [place] [address], [place] [address] Jul, [facility] [address] [id number] [address] [place] [address], [place] [address] Jul, [facility] [address] [id number] [address] [place] [address], [place] [address] 24 Jun, 2010 [facility] [address] [id number] [address] [place] [address], [place] [address] Jun, [facility] [address] [id number] [address] [place] [address], [place] [address] Jun, [facility] [address] [id number] [address] [place] [address], [place] [address] Jun, [facility] [address] [id number] [address] [place] [address], [place] [address] Apr, [facility] [address] [id number] [address] [place] [address], [place] [address] Mar, [facility] [address] [id number] [address] [place] [address], [place] [address] 17 Feb, 2010 [facility] [address] [id number] [address] [place] [address], [place] [address] January, [facility] [address] [id number] [address] [place] [address], [place] [address] 15 Dec, 2009 [facility] [address] [id number] [address] [place] [address] Nov, [facility] [address] [id number] [address] [place] [address], [place] [address] 31 Aug, 2009 [facility] [address] [id number] [address] [place] [address] Aug, [facility] [address] [id number] [address] [place] [address], [place] [address] Aug, [facility] [address] [id number] [address] [place] [address] Jul, [facility] [address] [id number] [address] [place] [address] Jul, [facility] [address] [id number] [address] [place] [address] Jul, [facility] [address] [id number] [address] [place] [address] 30 Jun, 2009 [facility] [address] [id number] [address] [place] [address] 29 Jun, 2009 [facility] [address] [id number] [address] [place] [address] Jun, [facility] [address] [id number] [address] [place] [address] Jun, [facility] [address] [id number] [address] [place] [address] 12 Jun, 2009 [facility] [address] [id number] [address] [place] [address] Jun, [facility] [address] [facility] [id number] [address] [place] [address] Apr, [facility] [address] [facility] [id number] [address] [place] [address] Apr, [facility] [address] [facility] [id number] [address] [place] [address] Feb, [facility] [address] [facility] [id number] [address] [place] [address] January, [facility] [address] [facility] [id number] [address] [place] [address] Dec, IMMUNIZATIONS No Known Immunizations SOCIAL HISTORY [...] inability to urinate 09/16/15 Hospitalization History [facility] inpatient mental health ea rly 1999' Hospitalization History hyperkalemia 10/2017 Hospitalization History fluid in lung Hospitalization History stroke, 02/2020
--- OUTSIDE RECORDS SUMMARY | 2020-04-11 11:03 | XMS REPORT ---
Author Author Michele WASHBURN [facility] Address [address] [place] [address] Care Team Providers Care Case Coordinator Name Role Phone NOEMI WASHBURN Unavailable PROBLEMS Type Condition ICD9-CM Code WRE27-CM Code Onset Dates Condition S tatus SNOMED Code Problem Insomnia, unspecified type G47.00 Act sharon 666393123 Problem Morbid obesity E66.01 Active 32726 6002 Problem Anxiety F41.9 Active 46903440 Problem Diabetic polyneuropathy associated with type 2 d iabetes mellitus E11.42 Active 10724046 Problem Essential hypertension I10 Active 88390756 Problem Bilateral primary osteoarthritis of knee M17.0 Active 570066172 Problem Polyneuropathy associated with underlying disease G63 Active 018369570 Problem Psychophysiological insomnia F51.04 A ctive 656810377 Problem Leukocytosis D72.829 Active 5294337 06 Problem Chronic diastolic (congestive) heart failure I50.3 2 Active 755855863 Problem Diabetes E11.9 Active 19274550 Problem Bipolar I disorder, most recent episode (or curr ent) mixed, moderate F31.62 Active 61379093 Problem Reactive airway disease J45.909 Active 237233166984 Problem Bipolar disorder, in partial remission, most rec ent episode depressed F31.75 Active 41609424 Problem Falling R29.6 Active 211268422 Problem Primary osteoarthritis of right knee M17.11 Active [id number] Problem Cough R05 Active 63208609 Problem Pure hypercholesterolemia E78.00 Acti ve 702191962 Problem Dysuria R30.0 Active 48379862 Problem Mild cognitive impairment G31.84 Acti ve 475032693 Problem Benign prostatic hyperplasia with lower urinary tract symptoms, unspecified morphology N40.1 Active 55566 6007 Problem Other iron deficiency anemia D50.8 A ctive 42259130 Problem Eustachian tube dysfunction, unspecified laterality H69.80 Active 81077287 Problem Bipolar disorder F31.9 Active 137 61488 Problem Chronic pain G89.29 Active 1639153 1 Problem Skin cancer C44.90 Active 03740349 7 Problem DM neuro manif type II E11.49 Active 62695175 Problem Type 2 diabetes mellitus with diabetic neuropathy, uns pecified E11.40 Active 57326269 Problem intermediate (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 Z79.4 Active 349519748 Problem Mood disorder F39 Active 770884 05 Problem Agitation R45.1 Active 477388353 Problem Anemia of chronic illness D63.8 Acti ve 751068855 Problem Lymphocytosis D72.820 Active 349075 09 Problem Dysphagia, unspecified type R13.10 Ac tive 61137680 Problem Retinal edema H35.81 Active 949059 6 Problem Chronic lymphocytic leukemia C91.10 A ctive 28637788 Problem Pressure ulcer of other site, stage 3 L89.893 Active 701022376 Problem 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 [id number] [address] [place] [phone] Apr, [facility] [place] [address] [facility] [id number] [address] [place] [phone] Mar, [facility] [place] [address] [facility] [facility] [id number] [address] [place] [phone] Mar, [facility] [place] [address] [facility] [facility] [id number] [address] [place] [address] Mar, [facility] [place] [address] [facility] [facility] [id number] [address] [place] [phone] Mar, [facility] [place] [address] [facility] [facility] [id number] [address] [place] [phone] Mar, Mood disorder F39 [place] [address] [facility] [id number] [address] [place] [address] 02 Mar, 2020 Bipolar I disorder, most rec ent episode depressed, moderate F31.32 ; Anxiety F41.9 and Mild cognitive impairment G31.84 [place] [address] [facility] [id number] [address] [place] [id number] 26 Feb, 2020 Dysphagia, unspecified type R13.10 [place] [address] [facility] [id number] [address] [place] [address] 25 Feb, 2020 Bipolar I disorder, most rec ent episode depressed, moderate F31.32 ; Anxiety F41.9 and Mild cognitive impairment G31.84 [place] [address] [facility] [id number] [address] [place] [phone] 24 Feb, 2020 [place] [address] [facility] [id number] [address] [place] [phone] 24 Feb, 2020 Gastroesophageal reflux dise ase without esophagitis K21.9 [place] [address] [facility] [id number] [address] [place] [phone] Feb, [place] [address] [facility] [id number] [address] [place] [id number] 18 Feb, 2020 Bipolar I disorder, most rec ent episode depressed, moderate F31.32 ; Anxiety F41.9 and Mild cognitive impairment G31.84 [place] [address] [facility] [id number] [address] [place] [address] 17 Feb, 2020 Chronic pain G89.29 [place] [address] [facility] [id number] [address] [place] [address] Feb, Agitation R45.1 [place] [address] [place] [id number] [address] [place] [address] Feb, PVD (peripheral vascular dis ease) I73.9 ; Status post CVA Z86.73 ; Status post carotid endarterectomy Z98.890 ; Vertigo R42 ; Mild cognitive impairment G31.84 ; Type 2 diabetes mellitus with diabetic neuropathy, unspecified E11.40 and Essential hypertension I10 [facility] [place] [address] [id number] [address] [place] [phone] Feb, [facility] [place] [address] [id number] [address] [place] [phone] Feb, [facility] [place] [address] [id number] [address] [place] [address] January, [facility] [place] [address] [id number] [address] [place] [address] January, Chronic pain G89.29 [facility] [place] [address] [id number] [address] [place] [address] Dec, [facility] [place] [address] [id number] [address] [place] [address] Dec, Chronic pain G89.29 [facility] [place] [address] [id number] [address] [place] [phone] Dec, [facility] [place] [address] [id number] [address] [place] [phone] Dec, [facility] [place] [address] [id number] [address] [place] [phone] Dec, Gastroesophageal reflux dise ase without esophagitis K21.9 and Pure hypercholesterolemia E78.00 [facility] [place] [address] [id number] [address] [place] [phone] Dec, Mood disorder F39 [facility] [place] [address] [id number] [address] [place] [address] Nov, Other secondary acute gout, 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 [facility] [place] [address] [id number] [address] [place] [id number] 25 Nov, 2019 Gastroesophageal reflux dise ase without esophagitis K21.9 [facility] [place] [address] [id number] [address] [place] [address] Nov, Chronic pain G89.29 [facility] [place] [address] [facility] [facility] [id number] [address] [place] [phone] Nov, Bipolar I disorder, most rec ent episode depressed, moderate F31.32 ; Anxiety F41.9 and Mild cognitive impairment G31.84 [facility] [place] [address] [id number] [address] [place] [phone] Nov, [facility] [place] [address] [facility] [facility] [id number] [address] [place] [address] Nov, Syncope, unspecified syncope type R55 [facility] [place] [address] [id number] [address] [place] [phone] Nov, Mood disorder F39 [facility] [place] [address] [facility] [facility] [id number] [address] [place] [address] Oct, Chronic pain G89.29 [facility] [place] [address] [facility] [id number] [address] [place] [phone] Oct, [facility] [place] [address] [facility] [id number] [address] [place] [phone] Oct, Mood disorder F39 [facility] [place] [address] [facility] [id number] [address] [place] [phone] Oct, [facility] [place] [address] [facility] [id number] [address] [place] [address] Oct, Bipolar disorder, in partial remission, most recent episode depressed F31.75 and Mild cognitive impairment G31.84 [facility] [place] [address] [facility] [id number] [address] [place] [phone] 04 Oct, 2019 Mood disorder F39 [facility] [place] [address] [facility] [facility] [id number] [address] [place] [phone] Sep, [facility] [place] [address] [facility] [id number] [address] [place] [phone] Sep, Mood disorder F39 [facility] [place] [address] [facility] [id number] [address] [place] [phone] Sep, Bipolar disorder, in partial remission, most recent episode depressed F31.75 and Mild cognitive impairment G31.84 [facility] [place] [address] [id number] [address] [place] [phone] Sep, Mood disorder F39 [facility] [address] [id number] [address] [place] [phone] Sep, [facility] [place] [address] [id number] [address] [place] [address] Sep, Mood disorder F39 [facility] [place] [address] [id number] [address] [place] [phone] Sep, [facility] [place] [address] [id number] [address] [place] [phone] Aug, Mood disorder F39 [facility] [place] [address] [id number] [address] [place] [phone] Aug, [facility] [place] [address] [id number] [address] [place] [id number] Aug, [facility] [place] [address] [id number] [address] [place] [phone] Aug, [facility] [place] [address] [id number] [address] [place] [id number] Aug, [facility] [place] [address] [id number] [address] [place] [phone] Aug, [facility] [place] [address] [id number] [address] [place] [id number] Aug, [facility] [place] [address] [id number] [address] [place] [address] Aug, [facility] [place] [address] [id number] [address] [place] [address] Aug, Essential hypertension I10 [facility] [place] [address] [id number] [address] [place] [phone] Aug, Bipolar disorder, in partial remission, most recent episode depressed F31.75 and Mild cognitive impairment G31.84 [facility] [place] [address] [id number] [address] [place] [phone] Aug, Mood disorder F39 [facility] [place] [address] [id number] [address] [place] [id number] Aug, [facility] [place] [address] [id number] [address] [place] [address] Aug, Bipolar disorder, in partial remission, most recent episode depressed F31.75 and Mild cognitive impairment G31.84 [facility] [place] [address] [id number] [address] [place] [id number] Jul, Bipolar disorder, in partial remission, most recent episode depressed F31.75 and Mild cognitive impairment G31.84 [facility] [place] [address] [id number] [address] [place] [phone] Jul, Psychophysiological insomnia F51.04 [facility] [place] [address] [id number] [address] [place] [address] Jul, [facility] [place] [address] [id number] [address] [place] [id number] Jul, [facility] [place] [address] [id number] [address] [place] [id number] Jul, [facility] [place] [address] [id number] [address] [place] [phone] Jul, [facility] [place] [address] [id number] [address] [place] [phone] Jul, [facility] [place] [address] [id number] [address] [place] [id number] Jul, [facility] [place] [address] [id number] [address] [place] [address] Jul, Bipolar disorder, in partial remission, most recent episode depressed F31.75 and Mild cognitive impairment G31.84 [facility] [place] [address] [id number] [address] [place] [address] Jul, Chronic pain G89.29 ; Diabet es E11.9 ; Essential hypertension I10 ; Ill feeling R68.89 ; Local infection of the skin and subcutaneous tissue, unspecified L08.9 and Other injury of unspecified body region, initial encounter T14.8XXA [facility] [place] [address] [id number] [address] [place] [address] Jun, Bipolar disorder, in partial remission, most recent episode depressed F31.75 and Mild cognitive impairment G31.84 [facility] [place] [address] [id number] [address] [place] [address] Jun, [place] [address] [id number] [address] [place] [address] Jun, Bipolar disorder, in partial remission, most recent episode depressed F31.75 and Mild cognitive impairment G31.84 [place] [address] [facility] [id number] [address] [place] [address] Jun, Psychophysiological insomnia F51.04 [place] [address] 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 [id number] [address] [place] [address] Jun, Bipolar disorder, in partial remission, most recent episode depressed F31.75 and Mild cognitive impairment G31.84 [place] [address] [id number] [address] [place] [address] Jun, [place] [address] [id number] [address] [place] [address] Jun, Bipolar disorder F31.9 [facility] [place] [address] [id number] [address] [place] [id number] 17 May, 2019 Bipolar disorder, in partial remission, most recent episode depressed F31.75 and Mild cognitive impairment G31.84 [facility] [place] [address] [id number] [address] [place] [id number] 05 May, 2019 [facility] [place] [address] [facility] [facility] [id number] [address] [place] [address] Apr, Chronic pain G89.29 and Bipo lar disorder F31.9 [facility] [place] [address] [id number] [address] [place] [phone] Mar, Bipolar disorder F31.9 and C hronic pain G89.29 [facility] [place] [address] [id number] [address] [place] [address] Feb, Bipolar disorder F31.9 [facility] [place] [address] [facility] [facility] [id number] [address] [place] [address] Feb, Cellulitis of right upper ex tremity L03.113 and Skin abrasion T14.8XXA [facility] [place] [address] [id number] [address] [place] [address] Feb, Bipolar disorder, in partial remission, most recent episode depressed F31.75 and Mild cognitive impairment G31.84 [facility] [place] [address] [facility] [id number] [address] [place] [address] Feb, Chronic pain G89.29 [facility] [place] [address] [facility] [facility] [id number] [address] [place] [address] Feb, Bipolar disorder, in partial remission, most recent episode depressed F31.75 and Mild cognitive impairment G31.84 [facility] [place] [address] [facility] [id number] [address] [place] [address] January, Bipolar disorder, in partial remission, most recent episode depressed F31.75 and Mild cognitive impairment G31.84 [facility] [place] [address] [facility] [facility] [id number] [address] [place] [phone] January, Chronic pain G89.29 and Bipo lar disorder F31.9 [facility] [place] [address] [id number] [address] [place] [address] January, Bipolar disorder, in partial remission, most recent episode depressed F31.75 and Mild cognitive impairment G31.84 [facility] [place] [address] [id number] [address] [place] [phone] Dec, [facility] [place] [address] [id number] [address] [place] [address] Dec, Chronic pain G89.29 and Bipo lar disorder F31.9 [facility] [place] [address] [id number] [address] [place] [phone] Dec, Edema of both lower extremit ies R60.0 [facility] [place] [address] [id number] [address] [place] [phone] Dec, Bipolar disorder F31.9 [facility] [place] [address] [id number] [address] [place] [address] Dec, Bipolar disorder, in partial remission, most recent episode depressed F31.75 and Mild cognitive impairment G31.84 [facility] [place] [address] [id number] [address] [place] [id number] Nov, [facility] [place] [address] [id number] [address] [place] [id number] Nov, Chronic pain G89.29 [facility] [place] [address] [id number] [address] [place] [id number] Nov, Bipolar disorder, in partial remission, most recent episode depressed F31.75 and Mild cognitive impairment G31.84 [facility] [place] [address] [id number] [address] [place] [id number] Nov, Bipolar disorder F31.9 [facility] [place] [address] [id number] [address] [place] [id number] 04 Nov, 2018 Encounter for Medicare [facility] [...] morphology N40.1 and Essential hypertension I10 [address] [id number] Oct, Chronic pain G89.[address] [id number] Oct, Diabetes E11.[address] [id number] Oct, Bipolar I disorder, most rec ent episode (or current) mixed, moderate F31.62 and Mild cognitive impairment G31.84 [place] [id number] [place] [address] Oct, Bipolar I disorder, most rec ent episode (or current) mixed, moderate F31.62 and Mild cognitive impairment G31.[address] [address] Sep, Bipolar I disorder, most rec ent episode (or current) mixed, moderate F31.62 and Mild cognitive impairment G31.84 [place] [id number] [address] [place] [address] Sep, [address] [address] Sep, Diabetes E11.9 ; Hypoxia R09 .02 ; Hyperglycemia R73.9 ; Therapeutic drug monitoring Z51.81 ; BMI 50.0-59.9, adult Z68.43 and Skin cancer C44.[address] [address] Sep, Chronic pain G89.29 [facility] [place] [address] [id number] [address] [place] [address] Sep, Bipolar I disorder, most rec ent episode (or current) mixed, moderate F31.62 [facility] [place] [address] [id number] [address] [place] [phone] Sep, [facility] [place] [address] [facility] [facility] [id number] [address] [place] [phone] Sep, [facility] [place] [address] [id number] [address] [place] [address] Aug, Chronic pain G89.29 [facility] [place] [address] [facility] [facility] [id number] [address] [place] [address] Aug, Bipolar I disorder, most rec ent episode (or current) mixed, moderate F31.62 [facility] [place] [address] [facility] [facility] [id number] [address] [place] [id number] Aug, Bipolar I disorder, most rec ent episode (or current) mixed, moderate F31.62 and Mild cognitive impairment G31.84 [facility] [place] [address] [facility] [id number] [address] [place] [phone] Jul, [facility] [place] [address] [facility] [id number] [address] [place] [id number] Jul, Chronic pain G89.29 [facility] [place] [address] [facility] [id number] [address] [place] [phone] Jul, Bipolar I disorder, most rec ent episode (or current) mixed, moderate F31.62 and Mild cognitive impairment G31.84 [facility] [place] [address] [facility] [id number] [address] [place] [id number] Jul, Bipolar I disorder, most rec ent episode (or current) mixed, moderate F31.62 and MCI (mild cognitive impairment) G31.84 [facility] [place] [address] [facility] [id number] [address] [place] [id number] Jul, [facility] [place] [address] [id number] [address] [place] [id number] Jul, [facility] [place] [address] [facility] [id number] [address] [place] [phone] Jul, Bipolar I disorder, most rec ent episode (or current) mixed, moderate F31.62 [facility] [place] [address] [facility] [id number] [address] [place] [address] Jul, Chronic pain G89.29 [facility] [place] [address] [id number] [address] [place] [phone] Jun, Bipolar I disorder, most rec ent episode (or current) mixed, moderate F31.62 [place] [address] [facility] [id number] [address] [place] [address] Jun, Pre-procedure lab exam Z01.8 12 [facility] [place] [address] [facility] [facility] [id number] [address] [place] [phone] Jun, [facility] [address] [id number] [place] [address] [id number] Jun, [facility] [place] [address] [facility] [id number] [address] [place] [phone] Jun, [facility] [place] [address] [facility] [id number] [address] [place] [address] Jun, Forgetfulness R68.89 ; Pre-s yncope R55 ; Localized edema R60.0 ; Other iron deficiency anemia D50.8 and BMI 50.0-59.9, adult Z68.43 [facility] [place] [address] [id number] [address] [place] [phone] Jun, Chronic pain G89.29 [facility] [place] [address] [facility] [facility] [id number] [address] [place] [address] Jun, Chronic pain G89.29 [facility] [place] [address] [facility] [id number] [address] [place] [phone] Jun, Bipolar I disorder, most rec ent episode (or current) mixed, moderate F31.62 [facility] [place] [address] [facility] [id number] [address] [place] [phone] 07 May, 2018 Chronic pain G89.29 [facility] [place] [address] [facility] [id number] [address] [place] [phone] Apr, [facility] [place] [address] [facility] [id number] [address] [place] [phone] Apr, Chronic pain G89.29 [place] [address] [facility] [id number] [address] [place] [id number] Apr, Primary osteoarthritis of ri ght knee M17.11 [place] [address] [facility] [id number] [address] [place] [address] Mar, [place] [address] [place] [id number] [address] [place] [address] Mar, BMI 50.0-59.9, adult Z68.43 and Bipolar disorder, in partial remission, most recent episode depressed F31.75 [place] [address] [place] [id number] [address] [place] [address] Mar, Diabetes E11.9 ; Pure hyperc holesterolemia E78.00 ; Essential hypertension I10 ; Nausea with vomiting, unspecified R11.2 and Headache, unspecified headache type R51 [place] [address] [facility] [id number] [address] [place] [phone] Mar, Bipolar I disorder, most rec ent episode (or current) mixed, moderate F31.62 [place] [address] [facility] [id number] [address] [place] [address] Mar, Bipolar I disorder, most rec ent episode (or current) mixed, moderate F31.62 [place] [address] [facility] [id number] [address] [place] [address] Mar, Chronic pain G89.29 [place] [address] [place] [id number] [address] [place] [address] Mar, Bipolar I disorder, most rec ent episode (or current) mixed, moderate F31.62 [facility] [place] [address] [id number] [address] [place] [id number] 18 Feb, 2018 Bipolar I disorder, most rec ent episode (or current) mixed, moderate F31.62 [facility] [place] [address] [facility] [id number] [address] [place] [id number] 14 Feb, 2018 Chronic pain G89.29 [facility] [place] [address] [facility] [facility] [id number] [address] [place] [phone] Feb, Decubitus ulcer of right josselin t, stage 3 L89.893 and BMI 50.0-59.9, adult Z68.43 [facility] [place] [address] [facility] [id number] [address] [place] [phone] Feb, Bipolar I disorder, most rec ent episode (or current) mixed, moderate F31.62 [facility] [place] [address] [facility] [id number] [address] [place] [id number] Feb, [facility] [place] [address] [facility] [id number] [address] [place] [address] January, [facility] [place] [address] [facility] [id number] [address] [place] [address] January, Chronic pain G89.29 [facility] [place] [address] [facility] [id number] [address] [place] [address] January, Bipolar I disorder, most rec ent episode (or current) mixed, moderate F31.62 [facility] [place] [address] [id number] [address] [place] [phone] January, Bipolar I disorder, most rec ent episode (or current) mixed, moderate F31.62 [facility] [place] [address] [facility] [id number] [address] [place] [address] Dec, Bipolar I disorder, most rec ent episode (or current) mixed, moderate F31.62 and BMI 50.0-59.9, adult Z68.43 [facility] [place] [address] [place] [id number] [address] [place] [address] Dec, Bipolar I disorder, most rec ent episode (or current) mixed, moderate F31.62 [place] [address] [place] [id number] [address] [place] [address] Dec, Chronic pain G89.29 [place] [address] [place] [id number] [address] [place] [address] Dec, DM neuro manif type II E11.4 9 ; Right flank pain R10.9 ; long term current use of opiate analgesic Z79.891 ; Encounter for medication monitoring Z51.81 and BMI 50.0-59.9, adult Z68.43 [place] [address] [place] [id number] [address] [place] [address] Dec, Bipolar I disorder, most rec ent episode (or current) mixed, moderate F31.62 [place] [address] [place] [id number] [address] [place] [address] Nov, Bipolar I disorder, most rec ent episode (or current) mixed, moderate F31.62 [place] [address] [place] [id number] [address] [place] [address] Nov, Chronic pain G89.29 [place] [address] [place] [id number] [address] [place] [address] Nov, Bipolar I disorder, most rec ent episode (or current) mixed, moderate F31.62 [place] [address] [place] [id number] [address] [place] [address] Nov, Hypokalemia E87.6 [place] [address] [place] [id number] [address] [place] [address] Nov, Bipolar I disorder, most rec ent episode (or current) mixed, moderate F31.62 [place] [address] [place] [id number] [address] [place] [address] Oct, Chronic pain G89.29 [place] [address] [place] [id number] [address] [place] [address] Oct, BMI 50.0-59.9, adult Z68.43 and Bipolar I disorder, most recent episode (or current) mixed, moderate F31.62 [facility] [place] [address] [place] [id number] [address] [place] [phone] Oct, Bipolar I disorder, most rec ent episode (or current) mixed, moderate F31.62 [facility] [place] [address] [address] Oct, [place] [address] [place] [id number] [place] [address] Oct, Hypokalemia E87.6 [place] [address] [place] [id number] [place] [address] Oct, DM neuro manif type II E11.4 9 [place] [address] [address] Oct, Bipolar I disorder, most rec ent episode (or current) mixed, moderate F31.62 [place] [address] [address] Oct, Bipolar I disorder, most rec ent episode (or current) mixed, moderate F31.62 [place] [address] [place] [id number] [place] [address] Oct, Hyperkalemia E87.5 ; Falling R29.6 ; BMI 50.0-59.9, adult Z68.43 and Acute left ankle pain M25.572 [place] [address] [place] [id number] [place] [address] Oct, DM neuro manif type II E11.4 9 [facility] [place] [address] [place] [id number] [address] [place] [phone] Oct, [facility] [place] [address] [place] [id number] [place] [address] Sep, Chronic pain G89.29 [facility] [place] [address] [place] [id number] [address] [place] [address] Sep, [facility] [place] [address] [address] Sep, Bilateral primary osteoarthr itis of knee M17.0 [place] [address] [address] Sep, Generalized edema R60.1 [place] [address] [address] Sep, Bipolar I disorder, most rec ent episode (or current) mixed, moderate F31.62 [place] [address] [address] Sep, Hypoxia R09.02 ; Other hyper volemia E87.79 ; Diabetes E11.9 ; Retinal edema H35.81 ; Hypokalemia E87.6 ; 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 ; Anemia of chronic illness D63.8 and BMI 50.0- 59.9, adult Z68.43 [place] [address] [address] Sep, [place] [address] [address] Sep, Bipolar I disorder, most rec ent episode (or current) mixed, moderate F31.62 [place] [address] [place] [id number] [address] [place] [address] Aug, Chronic pain G89.29 [place] [address] [address] Aug, Generalized edema R60.1 [place] [address] [place] [id number] [place] [address] Aug, [place] [address] [address] Aug, [facility] [place] [address] [facility] [facility] [id number] [address] [place] [id number] Aug, Bipolar I disorder, most rec ent episode (or current) mixed, moderate F31.62 [facility] [place] [address] [facility] [id number] [address] [place] [address] Aug, Bipolar I disorder, most rec ent episode (or current) mixed, moderate F31.62 [facility] [place] [address] [facility] [id number] [address] [place] [address] Aug, Chronic pain G89.29 [facility] [place] [address] [facility] [id number] [address] [place] [address] 30 Jul, 2017 Bipolar I disorder, most rec ent episode (or current) mixed, moderate F31.62 [facility] [place] [address] [place] [id number] [address] [place] [address] Jul, Bipolar I disorder, most rec ent episode (or current) mixed, moderate F31.62 and BMI 60.0-69.9, adult Z68.44 [facility] [place] [address] [facility] [id number] [address] [place] [address] Jul, Bipolar I disorder, most rec ent episode (or current) mixed, moderate F31.62 [facility] [place] [address] [facility] [id number] [address] [place] [address] Jul, Chronic pain G89.29 [facility] [place] [address] [place] [id number] [address] [place] [address] Jul, Bipolar I disorder, most rec ent episode (or current) mixed, moderate F31.62 [facility] [place] [address] [facility] [id number] [address] [place] [address] Jun, Polyneuropathy associated wi th underlying disease G63 and Diabetes E11.9 [facility] [place] [address] [facility] [id number] [address] [place] [address] 16 Jun, 2017 Bipolar I disorder, most rec ent episode (or current) mixed, moderate F31.62 [place] [id number] [id number] [address] [place] [address] 09 Jun, 2017 Chronic pain G89.29 [facility] [place] [address] [id number] [address] [place] [id number] 27 May, 2017 Bipolar I disorder, most rec ent episode (or current) mixed, moderate F31.62 [facility] [place] [address] [id number] [address] [place] [address] May, Bipolar I disorder, most rec ent episode (or current) mixed, moderate F31.62 [facility] [place] [address] [id number] [address] [place] [id number] 20 May, 2017 Diabetic polyneuropathy asso ciated with type 2 diabetes mellitus E11.42 [facility] [place] [address] [id number] [address] [place] [phone] 18 May, 2017 Bipolar I disorder, most rec ent episode (or current) mixed, moderate F31.62 [facility] [place] [address] [id number] [address] [place] [id number] 13 May, 2017 Bipolar I disorder, most rec ent episode (or current) mixed, moderate F31.62 [facility] [place] [address] [id number] [address] [place] [address] May, Chronic pain G89.29 [facility] [place] [address] [id number] [address] [place] [address] Apr, Bipolar I disorder, most rec ent episode (or current) mixed, moderate F31.62 [facility] [place] [address] [id number] [address] [place] [id number] Apr, [facility] [place] [address] [facility] [id number] [address] [place] [address] Apr, Chronic pain G89.29 and DM n euro manif type II E11.49 [facility] [place] [address] [id number] [address] [place] [id number] Apr, [facility] [place] [address] [id number] [address] [place] [address] Apr, Bipolar I disorder, most rec ent episode (or current) mixed, moderate F31.62 [facility] [place] [address] [facility] [facility] [id number] [address] [place] [address] Apr, Chronic pain G89.29 [facility] [place] [address] [facility] [facility] [id number] [address] [place] [address] Apr, Iliotibial band syndrome, le ft M76.32 [facility] [place] [address] [id number] [address] [place] [phone] Apr, Bipolar I disorder, most rec ent episode (or current) mixed, moderate F31.62 [facility] [place] [address] [facility] [facility] [id number] [address] [place] [address] Mar, Bipolar I disorder, most rec ent episode (or current) mixed, moderate F31.62 [facility] [place] [address] [facility] [facility] [id number] [address] [place] [id number] Mar, Bipolar I disorder, most rec ent episode (or current) mixed, moderate F31.62 [facility] [place], [facility] [address] [facility] [id number] [address] [place] [id number] Mar, [facility] [place], [facility] [address] [facility] [id number] [address] [place] [id number] Mar, Bipolar I disorder, most rec ent episode (or current) mixed, moderate F31.62 [facility] [place], [facility] [address] [facility] [id number] [address] [place] [id number] Mar, Chronic pain G89.29 [facility] [place], [facility] [address] [id number] [address] [place] [id number] Mar, Bipolar I disorder, most rec ent episode (or current) mixed, moderate F31.62 [facility] [place], [facility] [address] [facility] [id number] [address] [place] [phone] Mar, Bipolar I disorder, most rec ent episode (or current) mixed, moderate F31.62 [place] [address] [facility] [id number] [address] [place] [phone] Mar, Acute pain of left knee M25. 562 ; Left hip pain M25.552 ; Generalized edema R60.1 and Tongue swelling R22.0 [place] [address] [place] [id number] [address] [place] [id number] Mar, [place] [address] [place] [id number] [address] [place] [id number] Feb, Chronic pain G89.29 [place] [address] [place] [id number] [address] [place] [id number] Feb, Diabetes E11.9 [place] [address] [place] [id number] [place] [id number] January, Chronic pain G89.29 [place] [address] [place] [id number] [address] [place] [id number] January, [place] [address] [place] [id number] [address] [place] [phone] January, Bipolar I disorder, most rec ent episode (or current) mixed, moderate F31.62 [place] [address] [place] [id number] [address] [place] [phone] Dec, Bipolar I disorder, most rec ent episode (or current) mixed, moderate F31.62 [place] [address] [place] [id number] [address] [place] [id number] Dec, Chronic pain G89.29 [place] [address] [place] [id number] [address] [place] [address] Dec, Bipolar I disorder, most rec ent episode (or current) mixed, moderate F31.62 [place] [address] [place] [id number] [address] [place] [address] Dec, Diabetes E11.9 ; Essential h ypertension I10 ; Chronic pain G89.29 and Morbid obesity E66.01 [place] [address] [place] [id number] [address] [place] [address] Dec, [facility] [place] [address] [id number] [address] [place] [id number] Dec, Bipolar I disorder, most rec ent episode (or current) mixed, moderate F31.62 [facility] [place] [address] [facility] [facility] [id number] [address] [place] [id number] Dec, Bipolar I disorder, most rec ent episode (or current) mixed, moderate F31.62 [facility] [place] [address] [id number] [address] [place] [address] Nov, Chronic pain G89.29 [facility] [place] [address] [facility] [id number] [address] [place] [phone] Nov, Bipolar I disorder, most rec ent episode (or current) mixed, moderate F31.62 [facility] [place] [address] [facility] [id number] [address] [place] [id number] Nov, [facility] [place] [address] [facility] [id number] [address] [place] [id number] Nov, Bipolar I disorder, most rec ent episode (or current) mixed, moderate F31.62 [facility] [place] [address] [facility] [id number] [address] [place] [phone] Nov, Bipolar I disorder, most rec ent episode (or current) mixed, moderate F31.62 [facility] [place] [address] [facility] [id number] [address] [place] [phone] Nov, [facility] [place] [address] [facility] [id number] [address] [place] [phone] Nov, [facility] [place] [address] [facility] [id number] [address] [place] [id number] Nov, [facility] [place] [address] [facility] [id number] [address] [place] [phone] Oct, Chronic pain G89.29 [facility] [place] [address] 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 [facility] [place] [address] [id number] [address] [place] [id number] Oct, [facility] [place] [address] [id number] [address] [place] [phone] Oct, Diabetes E11.9 [facility] [place] [address] [id number] [address] [place] [phone] Oct, Bipolar I disorder, most rec ent episode (or current) mixed, moderate F31.62 [facility] [place] [address] [id number] [address] [place] [address] Sep, Chronic pain G89.29 [facility] [place] [address] [id number] [address] [place] [id number] Sep, Chronic pain G89.29 [facility] [place] [address] [id number] [address] [place] [phone] Aug, Chronic pain G89.29 [facility] [place] [address] [id number] [address] [place] [id number] Jul, [facility] [place] [address] [id number] [address] [place] [id number] Jul, Diabetes E11.9 [facility] [place] [address] [id number] [address] [place] [address] Jul, Chronic pain G89.29 [facility] [place] [address] [id number] [address] [place] [address] Jul, Bipolar I disorder, most rec ent episode (or current) mixed, moderate F31.62 [facility] [place] [address] [facility] [id number] [address] [place] [id number] Jun, Bipolar I disorder, most rec ent episode (or current) mixed, moderate F31.62 [facility] [place] [address] [facility] [id number] [address] [place] [phone] Jun, [facility] [place] [address] [facility] [id number] [address] [place] [phone] Jun, Bipolar I disorder, most rec ent episode (or current) mixed, moderate F31.62 [place] [address] [facility] [id number] [address] [place] [address] May, Insomnia, unspecified type G 47.00 [place] [address] [facility] [id number] [address] [place] [address] May, Bipolar I disorder, most rec ent episode (or current) mixed, moderate F31.62 [facility] [place] [address] [facility] [id number] [address] [place] [phone] May, [facility] [place] [address] [facility] [id number] [address] [place] [address] May, Bipolar I disorder, most rec ent episode (or current) mixed, moderate F31.62 [facility] [place] [address] [facility] [id number] [address] [place] [address] May, Diabetes E11.9 and Essential hypertension I10 [facility] [place] [address] [facility] [id number] [address] [place] [address] Apr, Chronic pain G89.29 [facility] [place] [address] [facility] [id number] [address] [place] [address] Apr, Bipolar I disorder, most rec ent episode (or current) mixed, moderate F31.62 [facility] [place] [address] [facility] [id number] [address] [place] [phone] Apr, [place] [address] [facility] [id number] [address] [place] [address] Apr, [place] [address] [place] [id number] [address] [place] [address] Mar, Chronic pain G89.29 ; Headac he, unspecified headache type R51 ; Neuropathy G62.9 ; Pain of right hip joint M25.551 and Essential hypertension I10 [place] [address] [place] [id number] [address] [place] [address] Mar, Chronic pain G89.29 [place] [address] [place] [id number] [address] [place] [address] Mar, Bipolar I disorder, most rec ent episode (or current) mixed, moderate F31.62 [place] [address] [place] [id number] [place] [address] Feb, Bipolar I disorder, most rec ent episode (or current) mixed, moderate F31.62 and Insomnia, unspecified type G47.00 [place] [address] [place] [id number] [address] [place] [address] Feb, Chronic pain G89.29 [place] [address] [place] [id number] [address] [place] [address] Feb, Bipolar I disorder, most rec ent episode (or current) mixed, moderate F31.62 [place] [address] [place] [id number] [address] [place] [phone] January, Bipolar I disorder, most rec ent episode (or current) mixed, moderate F31.62 [place] [address] [place] [id number] [address] [place] [address] January, Chronic pain G89.29 [place] [address] [place] [id number] [address] [place] [address] January, Chronic pain G89.29 and Esse ntial hypertension I10 [place] [address] [place] [id number] [address] [place] [address] January, Bipolar I disorder, most rec ent episode (or current) mixed, moderate F31.62 [facility] [place] [address] [facility] [id number] [address] [place] [address] Dec, [facility] [place] [address] [facility] [id number] [address] [place] [address] Dec, [facility] [place] [address] [place] [id number] [address] [place] [id number] Dec, [facility] [place] [address] [place] [id number] [address] [place] [address] Dec, [facility] [place] [address] [place] [id number] [place] [address] Nov, Reactive airway disease J45. 909 [facility] [place] [address] [place] [id number] [address] [place] [id number] Nov, [facility] [place] [address] [place] [id number] [address] [place] [id number] Nov, [facility] [place] [address] [place] [id number] [address] [place] [id number] Nov, [facility] [place] [address] [place] [id number] [place] [address] Nov, [facility] [place] [address] [place] [id number] [address] [place] [address] Nov, Onychomycosis B35.1 ; Hammer toe M20.40 ; [place] or callus L84 and DM neuro manif type II E11.49 [facility] [place] [address] [place] [id number] [address] [place] [phone] Nov, Chronic pain G89.29 ; Leukoc ytosis D72.829 and Diabetes E11.9 [facility] [place] [address] [place] [id number] [address] [place] [address] Nov, [facility] [place] [address] [place] [id number] [address] [place] [address] Oct, Bronchitis J40 [place] [address] [address] Oct, [place] [address] [address] Oct, [place] [address] [address] Oct, Mastoiditis, unspecified lat erality H70.90 and Type 2 diabetes mellitus with complication E11.8 [place] [address] [address] Sep, [place] [address] [address] Sep, Dysuria R30.0 ; Cough R05 ; Benign prostatic hyperplasia with lower urinary tract symptoms, unspecified morphology N40.1 ; Hypokalemia E87.6 and Eustachian tube dysfunction, unspecified laterality H69.80 [place] [address] [address] Sep, Moderate mixed bipolar I dis order F31.62 [place] [address] [address] Sep, Hypokalemia E87.6 [place] [address] [address] Sep, [place] [address] [address] Sep, Upper respiratory tract infe ction, unspecified type J06.9 [place] [address] [address] Aug, [place] [address] [address] Aug, Dysuria R30.0 [place] [address] [address] Aug, [facility] [place] [address] [id number] [address] [place] [phone] Jul, [facility] [place] [address] [id number] [address] [place] [address] Jul, [facility] [place] [address] [id number] [address] [place] [phone] Jul, [facility] [place] [address] [id number] [address] [place] [address] Jul, [facility] [place] [address] [id number] [address] [place] [phone] Jun, [facility] [place] [address] [id number] [address] [place] [id number] Jun, [facility] [place] [address] [id number] [address] [place] [address] Jun, [facility] [place] [address] [id number] [address] [place] [address] May, [facility] [place] [address] [id number] [address] [place] [address] May, Bipolar I disorder, most rec ent episode (or current) mixed, moderate 296.62 [facility] [place] [address] [id number] [address] [place] [address] May, [facility] [place] [address] [id number] [address] [place] [address] May, Bipolar I disorder, most rec ent episode (or current) mixed, moderate 296.62 and Major depressive disorder, recurrent episode, severe, specified as with psychotic behavior 296.34 [facility] [place] [address] [id number] [address] [place] [id number] May, Bipolar I disorder, most rec ent episode (or current) mixed, moderate 296.62 [facility] [place] [address] [id number] [address] [place] [address] May, [facility] [place] [address] [facility] [id number] [address] [place] [address] Apr, [facility] [place] [address] [id number] [address] [place] [id number] Apr, [facility] [place] [address] [facility] [id number] [address] [place] [address] Apr, Unspecified disorder of kidn ey and ureter 593.9 and Diabetes mellitus type 2, uncontrolled 250.02 [facility] [place] [address] [id number] [address] [place] [id number] Apr, [facility] [place] [address] [id number] [address] [place] [address] Apr, [facility] [place] [address] [facility] [id number] [address] [place] [address] Apr, [facility] [place] [address] [facility] [id number] [address] [place] [phone] Apr, [facility] [place] [address] [facility] [id number] [address] [place] [address] Apr, Diabetes mellitus type II, u ncontrolled 250.02 [facility] [place] [address] [facility] [id number] [address] [place] [address] Apr, [facility] [place] [address] [facility] [id number] [address] [place] [phone] Mar, [facility] [place] [address] [facility] [id number] [address] [place] [phone] Mar, [facility] [place] [address] [facility] [id number] [address] [place] [phone] Mar, [facility] [place] [address] [facility] [id number] [address] [place] [address] Mar, Major depressive disorder, r ecurrent episode, severe, specified as with psychotic behavior 296.34 and Bipolar I disorder, most recent episode (or current) mixed, moderate 296.62 [facility] [place] [address] [facility] [id number] [address] [place] [address] Mar, Diabetes 250.00 ; Anuria 788 .5 ; Nausea and vomiting 787.01 and Diarrhea 787.91 [facility] [place] [address] [place] [id number] [address] [place] [address] Mar, Diabetes 250.00 [facility] [place] [address] [address] Mar, [facility] [place] [address] [address] Mar, Diabetes 250.00 [facility] [place] [address] [address] Mar, [facility] [place] [address] [id number] Mar, [facility] [place] [address] [address] Mar, [facility] [place] [address] [address] Mar, [facility] [place] [address] [address] Mar, Bipolar I disorder, most rec ent episode (or current) mixed, moderate 296.62 and Major depressive disorder, recurrent episode, severe, specified as with psychotic behavior 296.34 [facility] [place] [address] [address] Mar, Magnesium deficiency 275.2 ; Hypokalemia 276.8 ; Nausea & vomiting 787.01 and Diabetes mellitus type 2, uncontrolled 250.02 [facility] [place] [address] [place] [id number] [address] [place] [address] Feb, [facility] [place] [address] [address] Feb, Bipolar I disorder, most rec ent episode (or current) mixed, moderate 296.62 [facility] [place] [address] [place] [id number] [address] [place] [address] Feb, Nausea and vomiting 787.01 ; Left elbow pain 719.42 ; Anuria 788.5 and Diabetes 250.00 [facility] [place] [address] [place] [id number] [address] [place] [phone] Feb, [facility] [place] [id number] [place] [id number] Feb, Hypopotassemia 276.8 and Hyp okalemia 276.8 [place] [id number] [place] [id number] Feb, Hypopotassemia 276.8 and Hyp okalemia 276.8 [place] [id number] [place] [id number] Feb, Seborrheic keratoses 702.19 [place] [id number] [place] [phone] Feb, Hypopotassemia 276.8 and Low magnesium levels 275.2 [facility] [place] [id number] [place] [phone] January, [facility] [place] [id number] [place] [phone] January, [facility] [place] [id number] [place] [phone] January, [facility] [place] [id number] [place] [phone] January, Scalp lesion 709.9 [facility] [place] [id number] [place] [id number] January, [facility] [place] [id number] [place] [id number] Dec, Tear of medial cartilage or meniscus of knee, current 836.0 and Chondromalacia 733.92 [facility] [place] [id number] [place] [phone] Dec, [facility] [address] [id number] [address] [place] [address], [place] [address] Dec, [facility] [address] [id number] [address] [place] [address], [place] [id number] 28 Dec, 2014 Squamous cell carcinoma, 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 [facility] [address] [id number] [address] [place] [address], [place] [id number] 14 Dec, 2014 [facility] [address] [id number] [address] [place] [address], [place] [id number] 13 Dec, 2014 [facility] [address] [id number] [address] [place] [address], [place] [id number] Nov, [facility] [address] [id number] [address] [place] [address], [place] [id number] Nov, [facility] [address] [id number] [address] [place] [address], [place] [id number] Nov, [facility] [facility] [address] [id number] [address] [place] [address], [place] [address] Nov, [facility] [address] [id number] [address] [place] [address], [place] [address] Nov, [facility] [address] [id number] [address] [place] [address], [place] [address] Nov, [facility] [address] [id number] [address] [place] [address], [place] [address] Nov, [facility] [address] [id number] [address] [place] [address], [place] [address] Nov, [facility] [address] [id number] [address] [place] [address], [place] [address] Nov, [facility] [address] [id number] [address] [place] [address], [place] [address] Nov, [facility] [address] [id number] [address] [place] [address], [place] [address] Nov, [facility] [address] [id number] [address] [place] [address], [place] [address] Nov, [facility] [address] [id number] [address] [place] [address], [place] [address] Oct, 2014 [facility] [address] [id number] [address] [place] [address], [place] [address] Oct, 2014 [facility] [address] [id number] [address] [place] [address], [place] [address] Oct, 2014 [facility] [address] [id number] [address] [place] [address], [place] [address] Oct, 2014 [facility] [address] [id number] [address] [place] [address], [place] [address] Oct, 2014 [facility] [address] [id number] [address] [place] [address], [place] [address] Oct, 2014 [facility] [address] [id number] [address] [place] [address], [place] [address] Oct, 2014 [facility] [address] [id number] [address] [place] [address], [place] [address] Oct, [facility] [address] [id number] [address] [place] [address], [place] [address] Oct, [facility] [address] [id number] [address] [place] [address], [place] [address] Sep, [facility] [address] [id number] [address] [place] [address] Sep, [facility] [address] [id number] [address] [place] [address], [place] [address] Sep, [facility] [address] [id number] [address] [place] [address], [place] [address] Sep, [facility] [address] [id number] [address] [place] [address], [place] [address] Sep, [facility] [address] [id number] [address] [place] [address], [place] [address] Sep, [facility] [address] [id number] [address] [place] [address], [place] [address] Sep, [facility] [address] [id number] [address] [place] [address], [place] [address] Sep, [facility] [address] [id number] [address] [place] [address], [place] [address] Sep, [facility] [address] [id number] [address] [place] [address], [place] [address] Sep, [facility] [address] [id number] [address] [place] [address], [place] [address] Sep, [facility] [address] [id number] [address] [place] [address], [place] [address] Sep, [facility] [address] [id number] [address] [place] [address], [place] [address] Sep, [facility] [address] [id number] [address] [place] [address], [place] [address] Sep, [facility] [address] [id number] [address] [place] [address], [place] [address] Sep, [facility] [address] [id number] [address] [place] [address], [place] [address] Sep, [facility] [address] [id number] [address] [place] [address], [place] [address] Aug, [facility] [address] [id number] [address] [place] [address], [place] [address] Aug, [facility] [address] [id number] [address] [place] [address], [place] [address] Aug, [facility] [address] [id number] [address] [place] [address], [place] [address] Aug, [facility] [address] [id number] [address] [place] [address], [place] [address] Aug, [facility] [address] [id number] [facility] [place] [address] Aug, [facility] [address] [id number] [facility] [place] [address] Aug, [facility] [address] [id number] [facility] [place] [address] Aug, [facility] [address] [id number] [facility] [place] [address] Aug, [facility] [address] [id number] [facility] [place] [address] Aug, [facility] [address] [id number] [address] [place] [address], [place] [address] Aug, [facility] [address] [place] [id number] Aug, [facility] [address] [id number] [address] [place] [address], [place] [address] Aug, [facility] [address] [id number] [address] [place] [address], [place] [address] Aug, [facility] [address] [id number] [address] [place] [address], [place] [address] Aug, [facility] [address] [id number] [address] [place] [address], [place] [address] Aug, [facility] [address] [id number] [address] [place] [address], [place] [address] Aug, [facility] [address] [id number] [address] [place] [address], [place] [address] Aug, [facility] [address] [id number] [facility] [place] [address] Aug, [facility] [address] [id number] [facility] [place] [address] Aug, [facility] [address] [id number] [address] [place] [address], [place] [address] Aug, [facility] [address] [id number] [address] [place] [address], [place] [address] Aug, [facility] [address] [id number] [address] [place] [address], [place] [address] Aug, [facility] [address] [id number] [address] [place] [address], [place] [address] Aug, [facility] [address] [id number] [address] [place] [address], [place] [address] Aug, [facility] [address] [id number] [address] [place] [address], [place] [address] Aug, [facility] [address] [id number] [address] [place] [address], [place] [address] Aug, [facility] [address] [id number] [address] [place] [address], [place] [address] Aug, [facility] [address] [id number] [address] [place] [address], [place] [address] Aug, [facility] [address] [id number] [address] [place] [address], [place] [address] Aug, [facility] [address] [id number] [address] [place] [address], [place] [address] Jul, [facility] [address] [id number] [address] [place] [address], [place] [address] Jul, [facility] [address] [id number] [address] [place] [address], [place] [address] Jul, [facility] [address] [id number] [address] [place] [address], [place] [address] Jul, [facility] [address] [id number] [address] [place] [address], [place] [address] Jul, [facility] [address] [id number] [address] [place] [address], [place] [address] Jul, [facility] [address] [id number] [address] [place] [address], [place] [address] Jul, [facility] [address] [id number] [address] [place] [address], [place] [address] Jul, [facility] [address] [id number] [address] [place] [address], [place] [address] Jul, [facility] [address] [id number] [address] [place] [address], [place] [address] Jul, [facility] [address] [id number] [address] [place] [address], [place] [address] Jun, [facility] [address] [id number] [address] [place] [address], [place] [address] Jun, [facility] [address] [id number] [address] [place] [address], [place] [address] Jun, [facility] [address] [id number] [address] [place] [address], [place] [address] Jun, [facility] [address] [id number] [address] [place] [address], [place] [address] Jun, [facility] [address] [id number] [address] [place] [address], [place] [address] Jun, [facility] [address] [id number] [address] [place] [address], [place] [address] Jun, [facility] [address] [id number] [address] [place] [address], [place] [address] Jun, [facility] [address] [id number] [address] [place] [address], [place] [address] Jun, [facility] [address] [id number] [address] [place] [address], [place] [address] Jun, [facility] [address] [id number] [address] [place] [address], [place] [address] May, [facility] [address] [id number] [address] [place] [address], [place] [address] 29 May, 2014 [facility] [address] [id number] [facility] [place] [address] 26 Sep, 2013 [facility] [address] [id number] [facility] [place] [address] 26 Sep, 2013 [facility] [address] [id number] [facility] [place] [address] 17 Sep, 2013 [facility] [address] [id number] [address] [place] [address], [place] [address] 17 Sep, 2013 [facility] [address] [id number] [address] [place] [address], [place] [address] 15 Sep, 2013 [facility] [address] [id number] [address] [place] [address], [place] [address] 15 May, 2013 [facility] [address] [id number] [address] [place] [address], [place] [address] 15 May, 2013 [facility] [address] [id number] [address] [place] [address], [place] [address] 15 May, 2013 [facility] [address] [id number] [address] [place] [address], [place] [address] 10 May, 2013 [facility] [address] [id number] [address] [place] [address], [place] [address] 10 May, 2013 [facility] [address] [id number] [address] [place] [address], [place] [address] 09 May, 2013 [facility] [address] [id number] [address] [place] [address], [place] [address] 09 Sep, 2013 [facility] [address] [id number] [address] [place] [address], [place] [address] 04 May, 2013 [facility] [address] [id number] [address] [place] [address], [place] [address] 04 May, 2013 [facility] [address] [id number] [address] [place] [address], [place] [address] 30 Apr, 2014 [facility] [address] [id number] [address] [place] [address], [place] [address] Apr, [facility] [address] [id number] [facility] [place] [address] Apr, [facility] [address] [id number] [address] [place] [address], [place] [address] Apr, [facility] [address] [id number] [address] [place] [address], [place] [address] Apr, [facility] [address] [id number] [address] [place] [address], [place] [address] Apr, [facility] [address] [id number] [address] [place] [address], [place] [address] Apr, [facility] [address] [id number] [address] [place] [address], [place] [address] Apr, [facility] [address] [id number] [address] [place] [address], [place] [address] Apr, [facility] [address] [id number] [address] [place] [address], [place] [address] Apr, [facility] [address] [id number] [address] [place] [address], [place] [address] Apr, [facility] [address] [id number] [address] [place] [address], [place] [address] Apr, [facility] [address] [id number] [address] [place] [address], [place] [address] Apr, [facility] [address] [id number] [address] [place] [address], [place] [address] Apr, [facility] [address] [id number] [address] [place] [address], [place] [address] Apr, [facility] [address] [id number] [address] [place] [address], [place] [address] Mar, [facility] [address] [id number] [address] [place] [address], [place] [address] Mar, [facility] [address] [id number] [facility] [place] [address] Mar, 2013 [facility] [address] [id number] [address] [place] [address], [place] [address] Mar, 2013 [facility] [address] [id number] [address] [place] [address], [place] [address] Mar, 2013 [facility] [address] [id number] [address] [place] [address], [place] [address] Mar, 2013 [facility] [address] [id number] [address] [place] [address], [place] [address] Mar, 2013 [facility] [address] [id number] [address] [place] [address], [place] [address] Mar, 2013 [facility] [address] [id number] [address] [place] [address], [place] [address] Mar, 2013 [facility] [address] [id number] [address] [place] [address], [place] [address] Mar, 2013 [facility] [address] [id number] [address] [place] [address], [place] [address] Mar, 2013 [facility] [address] [id number] [address] [place] [address], [place] [address] Mar, 2013 [facility] [address] [id number] [address] [place] [address], [place] [address] Mar, 2013 [facility] [address] [id number] [address] [place] [address], [place] [address] Mar, 2013 [facility] [address] [id number] [address] [place] [address], [place] [address] Mar, 2013 [facility] [address] [id number] [address] [place] [address], [place] [address] Mar, 2013 [facility] [address] [id number] [address] [place] [address], [place] [address] Mar, 2013 [facility] [address] [id number] [address] [place] [address], [place] [address] Mar, [facility] [address] [id number] [address] [place] [address], [place] [address] Feb, [facility] [address] [id number] [address] [place] [address], [place] [address] Feb, [facility] [address] [id number] [address] [place] [address], [place] [address] Feb, [facility] [address] [id number] [address] [place] [address], [place] [address] Feb, [facility] [address] [id number] [address] [place] [address], [place] [address] Feb, [facility] [address] [id number] [address] [place] [address], [place] [address] Feb, [facility] [address] [id number] [address] [place] [address], [place] [address] Feb, [facility] [address] [id number] [address] [place] [address], [place] [address] Feb, [facility] [address] [id number] [address] [place] [address], [place] [address] Feb, [facility] [address] [id number] [address] [place] [address], [place] [address] Feb, [facility] [address] [id number] [address] [place] [address], [place] [address] Feb, [facility] [address] [id number] [address] [place] [address], [place] [address] Feb, [facility] [address] [id number] [address] [place] [address], [place] [address] Feb, [facility] [address] [id number] [address] [place] [address], [place] [address] Feb, [facility] [address] [id number] [address] [place] [address], [place] [address] January, [facility] [address] [id number] [address] [place] [address], [place] [address] January, [facility] [address] [id number] [address] [place] [address], [place] [address] January, [facility] [address] [id number] [address] [place] [address], [place] [address] January, [facility] [address] [id number] [address] [place] [address], [place] [address] January, [facility] [address] [id number] [address] [place] [address], [place] [address] January, [facility] [address] [id number] [address] [place] [address], [place] [address] January, [facility] [address] [id number] [address] [place] [address], [place] [address] January, [facility] [address] [id number] [address] [place] [address], [place] [address] January, [facility] [address] [id number] [address] [place] [address], [place] [address] January, [facility] [address] [id number] [address] [place] [address], [place] [address] January, [facility] [address] [id number] [address] [place] [address], [place] [address] January, [facility] [address] [id number] [address] [place] [address], [place] [address] January, [facility] [address] [id number] [address] [place] [address], [place] [address] January, [facility] [address] [id number] [address] [place] [address], [place] [address] Dec, [facility] [address] [id number] [address] [place] [address], [place] [address] Dec, [facility] [address] [id number] [address] [place] [address], [place] [address] Dec, [facility] [address] [id number] [facility] [place] [address] Dec, [facility] [address] [id number] [facility] [place] [address] Dec, [facility] [address] [id number] [facility] [place] [address] Dec, [facility] [address] [id number] [facility] [place] [address] Dec, [facility] [address] [id number] [facility] [place] [address] Dec, [facility] [address] [id number] [address] [place] [address], [place] [address] Dec, [facility] [address] [id number] [address] [place] [address], [place] [address] Dec, [facility] [address] [id number] [address] [place] [address], [place] [address] Nov, [facility] [address] [id number] [address] [place] [address], [place] [address] Nov, [facility] [address] [id number] [address] [place] [address], [place] [address] Nov, [facility] [address] [id number] [address] [place] [address], [place] [address] Nov, [facility] [address] [id number] [address] [place] [address], [place] [address] Nov, [facility] [address] [id number] [address] [place] [address], [place] [address] Nov, [facility] [address] [id number] [address] [place] [address], [place] [address] 05 Nov, 2013 [facility] [address] [id number] [address] [place] [address], [place] [address] 05 Nov, 2013 [facility] [address] [id number] [address] [place] [address], [place] [address] Nov, [facility] [address] [id number] [facility] [place] [address] Nov, [facility] [address] [id number] [facility] [place] [address] Oct, [facility] [address] [id number] [address] [place] [address], [place] [address] Oct, [facility] [address] [id number] [address] [place] [address], [place] [address] Oct, [facility] [address] [id number] [address] [place] [address], [place] [address] Oct, [facility] [address] [id number] [address] [place] [address], [place] [address] Oct, [facility] [address] [id number] [address] [place] [address], [place] [address] Oct, [facility] [address] [id number] [address] [place] [address], [place] [address] Oct, [facility] [address] [id number] [address] [place] [address], [place] [address] Oct, [facility] [address] [id number] [address] [place] [address], [place] [address] Oct, [facility] [address] [id number] [address] [place] [address], [place] [address] Oct, [facility] [address] [id number] [address] [place] [address], [place] [address] Oct, [facility] [address] [id number] [address] [place] [address], [place] [address] Oct, [facility] [address] [id number] [address] [place] [address], [place] [address] Oct, [facility] [address] [id number] [address] [place] [address], [place] [address] Oct, [facility] [address] [id number] [address] [place] [address], [place] [address] Sep, [facility] [address] [id number] [address] [place] [address], [place] [address] Sep, [facility] [address] [id number] [address] [place] [address], [place] [address] Sep, [facility] [address] [id number] [address] [place] [address], [place] [address] Sep, [facility] [address] [id number] [address] [place] [address], [place] [address] Sep, [facility] [address] [id number] [address] [place] [address], [place] [address] Sep, [facility] [address] [id number] [address] [place] [address], [place] [address] Sep, [facility] [address] [id number] [address] [place] [address], [place] [address] Sep, [facility] [address] [id number] [address] [place] [address], [place] [address] Sep, [facility] [address] [id number] [address] [place] [address], [place] [address] Sep, [facility] [address] [id number] [address] [place] [address], [place] [address] Aug, [facility] [address] [id number] [address] [place] [address], [place] [address] Aug, [facility] [address] [id number] [address] [place] [address], [place] [address] Jul, [facility] [address] [id number] [address] [place] [address], [place] [address] Jul, [facility] [address] [id number] [address] [place] [address], [place] [address] 13 Jul, 2013 [facility] [address] [id number] [address] [place] [address], [place] [address] Jul, [facility] [address] [id number] [address] [place] [address], [place] [address] Jul, [facility] [address] [id number] [address] [place] [address], [place] [address] Jul, [facility] [address] [id number] [address] [place] [address], [place] [address] Jul, [facility] [address] [id number] [address] [place] [address], [place] [address] Jul, [facility] [address] [id number] [address] [place] [address], [place] [address] Jul, [facility] [address] [id number] [address] [place] [address], [place] [address] Jul, [facility] [address] [id number] [address] [place] [address], [place] [address] Jul, [facility] [address] [id number] [address] [place] [address], [place] [address] Jul, [facility] [address] [id number] [address] [place] [address], [place] [address] Jul, [facility] [address] [id number] [address] [place] [address], [place] [address] Jul, [facility] [address] [id number] [address] [place] [address], [place] [address] Jul, [facility] [address] [id number] [address] [place] [address] Jul, [facility] [address] [id number] [address] [place] [address], [place] [address] Jul, [facility] [address] [id number] [address] [place] [address], [place] [address] Jul, [facility] [address] [id number] [address] [place] [address], [place] [address] Jul, [facility] [address] [id number] [address] [place] [address], [place] [address] 16 Jun, 2012 [facility] [address] [id number] [address] [place] [address], [place] [address] 16 Jun, 2012 [facility] [address] [id number] [address] [place] [address], [place] [address] 16 Jun, 2012 [facility] [address] [id number] [address] [place] [address], [place] [address] 16 Jun, 2012 [facility] [address] [id number] [address] [place] [address], [place] [address] 16 Jun, 2012 [facility] [address] [id number] [address] [place] [address], [place] [address] 16 Jun, 2012 [facility] [address] [id number] [address] [place] [address], [place] [address] 10 Jun, 2012 [facility] [address] [id number] [address] [place] [address], [place] [address] 10 Jun, 2012 [facility] [address] [id number] [address] [place] [address], [place] [address] 09 Jun, 2012 [facility] [address] [id number] [address] [place] [address], [place] [address] 09 Jun, 2012 [facility] [address] [id number] [address] [place] [address], [place] [address] Jun, [facility] [address] [id number] [address] [place] [address], [place] [address] 26 Sep, 2012 [facility] [address] [id number] [address] [place] [address], [place] [address] 25 Sep, 2012 [facility] [address] [id number] [address] [place] [address], [place] [address] 19 Sep, 2012 [facility] [address] [id number] [address] [place] [address], [place] [address] 17 Sep, 2012 [facility] [address] [id number] [address] [place] [address], [place] [address] May, [facility] [address] [id number] [address] [place] [address], [place] [address] May, [facility] [address] [id number] [address] [place] [address], [place] [address] May, [facility] [address] [id number] [address] [place] [address], [place] [address] May, [facility] [address] [id number] [address] [place] [address], [place] [address] Apr, [facility] [address] [id number] [address] [place] [address], [place] [address] Apr, [facility] [address] [id number] [address] [place] [address], [place] [address] Apr, [facility] [address] [id number] [address] [place] [address], [place] [address] Apr, [facility] [address] [id number] [address] [place] [address], [place] [address] Apr, [facility] [address] [id number] [address] [place] [address], [place] [address] Mar, [facility] [address] [id number] [address] [place] [address], [place] [address] Mar, [facility] [address] [id number] [address] [place] [address], [place] [address] Mar, [facility] [address] [id number] [address] [place] [address], [place] [address] Mar, [facility] [address] [id number] [address] [place] [address], [place] [address] Mar, [facility] [address] [id number] [address] [place] [address], [place] [address] Mar, [facility] [address] [id number] [address] [place] [address], [place] [address] Mar, [facility] [address] [id number] [address] [place] [address], [place] [address] Mar, [facility] [address] [id number] [address] [place] [address], [place] [address] Feb, [facility] [address] [id number] [address] [place] [address], [place] [address] Feb, [facility] [address] [id number] [address] [place] [address], [place] [address] January, [facility] [address] [id number] [address] [place] [address], [place] [address] January, [facility] [address] [id number] [address] [place] [address], [place] [address] Dec, [facility] [address] [id number] [address] [place] [address], [place] [address] Dec, [facility] [address] [id number] [address] [place] [address], [place] [address] Nov, [facility] [address] [id number] [address] [place] [address], [place] [address] Nov, [facility] [address] [id number] [address] [place] [address], [place] [address] Nov, [facility] [address] [id number] [address] [place] [address], [place] [address] Nov, [facility] [address] [id number] [address] [place] [address], [place] [address] Oct, [facility] [address] [id number] [address] [place] [address], [place] [address] Oct, [facility] [address] [id number] [address] [place] [address], [place] [address] Oct, [facility] [address] [id number] [address] [place] [address], [place] [address] Oct, [facility] [address] [id number] [address] [place] [address], [place] [address] Oct, [facility] [address] [id number] [address] [place] [address], [place] [address] 14 Oct, 2012 [facility] [address] [id number] [address] [place] [address], [place] [address] 08 Oct, 2012 [facility] [address] [id number] [address] [place] [address], [place] [address] 07 Oct, 2012 [facility] [address] [id number] [address] [place] [address], [place] [address] 03 Oct, 2012 [facility] [address] [id number] [address] [place] [address], [place] [address] 30 Sep, 2012 [facility] [address] [id number] [address] [place] [address], [place] [address] Sep, [facility] [address] [id number] [address] [place] [address], [place] [address] Sep, [facility] [address] [id number] [address] [place] [address], [place] [address] Sep, [facility] [address] [id number] [address] [place] [address], [place] [address] Sep, [facility] [address] [id number] [address] [place] [address], [place] [address] Sep, [facility] [address] [id number] [address] [place] [address], [place] [address] Sep, [facility] [address] [id number] [address] [place] [address], [place] [address] Sep, [facility] [address] [id number] [address] [place] [address], [place] [address] Aug, [facility] [address] [id number] [address] [place] [address], [place] [address] Aug, [facility] [address] [id number] [address] [place] [address], [place] [address] Aug, [facility] [address] [id number] [address] [place] [address], [place] [address] Aug, [facility] [address] [id number] [address] [place] [address], [place] [address] Aug, [facility] [address] [id number] [address] [place] [address], [place] [address] Aug, [facility] [address] [id number] [address] [place] [address], [place] [address] Aug, [facility] [address] [id number] [address] [place] [address], [place] [address] Aug, [facility] [address] [id number] [address] [place] [address], [place] [address] Jul, [facility] [address] [id number] [address] [place] [address], [place] [address] Jul, [facility] [address] [id number] [address] [place] [address], [place] [address] Jul, [facility] [address] [id number] [address] [place] [address], [place] [address] Jul, [facility] [address] [id number] [address] [place] [address], [place] [address] Jul, [facility] [address] [id number] [address] [place] [address], [place] [address] Jul, [facility] [address] [id number] [address] [place] [address], [place] [address] Jun, [facility] [address] [id number] [address] [place] [address], [place] [address] Jun, [facility] [address] [id number] [address] [place] [address], [place] [address] Jun, [facility] [address] [id number] [address] [place] [address], [place] [address] Jun, [facility] [address] [id number] [address] [place] [address], [place] [address] Jun, [facility] [address] [id number] [address] [place] [address], [place] [address] 19 Jun, 2012 [facility] [address] [id number] [address] [place] [address], [place] [address] 19 Jun, 2012 [facility] [address] [id number] [address] [place] [address], [place] [address] 10 Jun, 2012 [facility] [address] [id number] [address] [place] [address], [place] [address] 10 Jun, 2012 [facility] [address] [id number] [address] [place] [address], [place] [address] 26 May, 2012 [facility] [address] [id number] [address] [place] [address], [place] [address] 24 May, 2012 [facility] [address] [id number] [address] [place] [address], [place] [address] 18 May, 2012 [facility] [address] [id number] [address] [place] [address], [place] [address] 30 Apr, 2012 [facility] [address] [id number] [address] [place] [address], [place] [address] Apr, [facility] [address] [id number] [address] [place] [address], [place] [address] Apr, [facility] [address] [id number] [address] [place] [address], [place] [address] Apr, [facility] [address] [id number] [address] [place] [address], [place] [address] Apr, [facility] [address] [id number] [address] [place] [address], [place] [address] Apr, [facility] [address] [id number] [address] [place] [address], [place] [address] Mar, [facility] [address] [id number] [address] [place] [address], [place] [address] Mar, [facility] [address] [id number] [address] [place] [address], [place] [address] Mar, [facility] [address] [id number] [address] [place] [address], [place] [address] Mar, [facility] [address] [id number] [address] [place] [address], [place] [address] Feb, [facility] [address] [id number] [address] [place] [address], [place] [address] Feb, [facility] [address] [id number] [address] [place] [address], [place] [address] Feb, [facility] [address] [id number] [address] [place] [address], [place] [address] Feb, [facility] [address] [id number] [address] [place] [address], [place] [address] Feb, [facility] [address] [id number] [address] [place] [address], [place] [address] January, [facility] [address] [id number] [address] [place] [address], [place] [address] January, [facility] [address] [id number] [address] [place] [address], [place] [address] January, [facility] [address] [id number] [address] [place] [address], [place] [address] January, [facility] [address] [id number] [address] [place] [address], [place] [address] January, [facility] [address] [id number] [address] [place] [address], [place] [address] January, [facility] [address] [id number] [address] [place] [address], [place] [address] Dec, [facility] [address] [id number] [address] [place] [address], [place] [address] Dec, [facility] [address] [id number] [address] [place] [address], [place] [address] Dec, [facility] [address] [id number] [address] [place] [address], [place] [address] 09 Dec, 2011 [facility] [address] [id number] [address] [place] [address], [place] [address] 06 Dec, 2011 [facility] [address] [id number] [address] [place] [address], [place] [address] 27 Nov, 2011 [facility] [address] [id number] [address] [place] [address], [place] [address] 14 Nov, 2011 [facility] [address] [id number] [address] [place] [address], [place] [address] 12 Nov, 2011 [facility] [address] [id number] [address] [place] [address], [place] [address] 07 Nov, 2011 [facility] [address] [id number] [address] [place] [address], [place] [address] 29 Oct, 2011 [facility] [address] [id number] [address] [place] [address], [place] [address] 28 Oct, 2011 [facility] [address] [id number] [address] [place] [address], [place] [address] 24 Oct, 2011 [facility] [address] [id number] [address] [place] [address], [place] [address] 13 Oct, 2011 [facility] [address] [id number] [address] [place] [address], [place] [address] 08 Oct, 2011 [facility] [address] [id number] [address] [place] [address], [place] [address] Sep, [facility] [address] [id number] [address] [place] [address], [place] [address] 30 Sep, 2011 [facility] [address] [id number] [address] [place] [address], [place] [address] Sep, [facility] [address] [id number] [address] [place] [address], [place] [address] Sep, [facility] [address] [id number] [address] [place] [address], [place] [address] Sep, [facility] [address] [id number] [address] [place] [address], [place] [address] Sep, [facility] [address] [id number] [address] [place] [address], [place] [address] Aug, [facility] [address] [id number] [address] [place] [address], [place] [address] Aug, [facility] [address] [id number] [address] [place] [address], [place] [address] Aug, [facility] [address] [id number] [address] [place] [address], [place] [address] Jul, [facility] [address] [id number] [address] [place] [address], [place] [address] Jul, [facility] [address] [id number] [address] [place] [address], [place] [address] Jul, [facility] [address] [id number] [address] [place] [address], [place] [address] Jul, [facility] [address] [id number] [address] [place] [address], [place] [address] Jun, [facility] [address] [id number] [address] [place] [address], [place] [address] Jun, [facility] [address] [id number] [address] [place] [address], [place] [address] Jun, [facility] [address] [id number] [address] [place] [address] Jun, [facility] [address] [id number] [address] [place] [address], [place] [address] Jun, [facility] [address] [id number] [address] [place] [address], [place] [address] Jun, [facility] [address] [id number] [address] [place] [address], [place] [address] Mar, [facility] [address] [id number] [address] [place] [address], [place] [address] 18 Dec, 2010 [facility] [address] [id number] [address] [place] [address], [place] [address] 11 Dec, 2010 [facility] [address] [id number] [address] [place] [address], [place] [address] 18 Nov, 2010 [facility] [address] [id number] [address] [place] [address], [place] [address] 16 Nov, 2010 [facility] [address] [id number] [address] [place] [address], [place] [address] 10 Sep, 2010 [facility] [address] [id number] [address] [place] [address], [place] [address] 31 Aug, 2010 [facility] [address] [id number] [address] [place] [address], [place] [address] 29 Aug, 2010 [facility] [address] [id number] [address] [place] [address], [place] [address] 29 Aug, 2010 [facility] [address] [id number] [address] [place] [address], [place] [address] 29 Aug, 2010 [facility] [address] [id number] [address] [place] [address], [place] [address] 27 Aug, 2010 [facility] [address] [id number] [address] [place] [address], [place] [address] 14 Aug, 2010 [facility] [address] [id number] [address] [place] [address], [place] [address] 08 Aug, 2010 [facility] [address] [id number] [address] [place] [address], [place] [address] 08 Aug, 2010 [facility] [address] [id number] [address] [place] [address], [place] [address] 07 Aug, 2010 [facility] [address] [id number] [address] [place] [address], [place] [address] 06 Aug, 2010 [facility] [address] [id number] [address] [place] [address], [place] [address] 06 Aug, 2010 [facility] [address] [id number] [address] [place] [address], [place] [address] Aug, [facility] [address] [id number] [address] [place] [address], [place] [address] Jul, [facility] [address] [id number] [address] [place] [address], [place] [address] Jul, [facility] [address] [id number] [address] [place] [address], [place] [address] Jul, [facility] [address] [id number] [address] [place] [address], [place] [address] Jul, [facility] [address] [id number] [address] [place] [address], [place] [address] Jul, [facility] [address] [id number] [address] [place] [address], [place] [address] Jul, [facility] [address] [id number] [address] [place] [address], [place] [address] Jun, [facility] [address] [id number] [address] [place] [address], [place] [address] Jun, [facility] [address] [id number] [address] [place] [address], [place] [address] Jun, [facility] [address] [id number] [address] [place] [address], [place] [address] Jun, [facility] [address] [id number] [address] [place] [address], [place] [address] Apr, [facility] [address] [id number] [address] [place] [address], [place] [address] Mar, [facility] [address] [id number] [address] [place] [address], [place] [address] Feb, [facility] [address] [id number] [address] [place] [address], [place] [address] January, [facility] [address] [id number] [address] [place] [address], [place] [address] 15 Dec, 2009 [facility] [address] [id number] [address] [place] [address], [place] [address] Nov, [facility] [address] [id number] [address] [place] [id number] Aug, [facility] [address] [id number] [address] [place] [id number] Aug, [facility] [address] [id number] [address] [place] [id number] Aug, [facility] [address] [id number] [address] [place] [address], [place] [address] Jul, [facility] [address] [id number] [address] [place] [address] Jul, [facility] [address] [id number] [address] [place] [address] Jul, [facility] [address] [id number] [address] [place] [id number] 30 Jun, 2009 [facility] [address] [id number] [address] [place] [address] 29 Jun, 2009 [facility] [address] [id number] [address] [place] [address] Jun, [facility] [address] [id number] [address] [place] [address] Jun, [facility] [address] [id number] [address] [place] [id number] Jun, [facility] [address] [id number] [address] [place] [id number] Jun, [facility] [address] [id number] [address] [place] [address] Apr, [facility] [address] [id number] [address] [place] [address] Apr, [facility] [address] [id number] [address] [place] [address] Feb, [facility] [place] [address] [facility] [id number] [address] [place] [phone] January, [facility] [place] [address] [facility] [id number] [address] [place] [address] Dec, IMMUNIZATIONS No Known Immunizations SOCIAL HISTORY [...] stroke Surgical History arthroscopic knee surgery (Right) 2003 Surgical History carpal tunnel release (Left) 2000 Surgical History EGD ([facility]) 2009 Surgical History colonoscopy 2009 ([facility]), 2013 ([place] ) Surgical History heart cath: CAD w/ [...] History inability to urinate 09/16/15 Hospitalization History [facility] ea rly 1999's Hospitalization History hyperkalemia 10/2017 Hospitalization History fluid in lung Hospitalization History stroke, 02/2020
--- OUTSIDE RECORDS SUMMARY | 2020-04-11 11:03 | XMS REPORT ---
Author Author Michele Verduzco Doctor Organization [facility] Address Unknown Phone Unavailable Care Team Providers Care Lead Pharmacy Technician Name Role Phone Migration, Doctor Unavailable Unavailable PROBLEMS Type Condition ICD9-CM Code LQL48-LB Code Onset Dates Condition S tatus SNOMED Code Problem Insomnia, unspecified type G47.00 Act sharon 902607386 Problem Morbid obesity E66.01 Active 89985 6002 Problem Anxiety F41.9 Active 77702839 Problem Diabetic polyneuropathy associated with type 2 d iabetes mellitus E11.42 Active 89319933 Problem Essential hypertension I10 Active 99002481 Problem Bilateral primary osteoarthritis of knee M17.0 Active 110274552 Problem Polyneuropathy associated with underlying disease G63 Active 624714278 Problem Psychophysiological insomnia F51.04 A ctive 787625090 Problem Leukocytosis D72.829 Active 7492779 06 Problem Chronic diastolic (congestive) heart failure I50.3 2 Active 278299536 Problem Diabetes E11.9 Active 36144852 Problem Bipolar I disorder, most recent episode (or curr ent) mixed, moderate F31.62 Active 06635946 Problem Reactive airway disease J45.909 Active 377949416853 Problem Bipolar disorder, in partial remission, most rec ent episode depressed F31.75 Active 15213690 Problem Falling R29.6 Active 529996767 Problem Primary osteoarthritis of right knee M17.11 Active [id number] Problem Cough R05 Active 03031178 Problem Pure hypercholesterolemia E78.00 Acti ve 212497723 Problem Dysuria R30.0 Active 88891971 Problem Mild cognitive impairment G31.84 Acti ve 279468849 Problem Benign prostatic hyperplasia with lower urinary tract symptoms, unspecified morphology N40.1 Active 98403 6007 Problem Other iron deficiency anemia D50.8 A ctive 11602462 Problem Eustachian tube dysfunction, unspecified laterality H69.80 Active 94742589 Problem Bipolar disorder F31.9 Active 137 88399 Problem Chronic pain G89.29 Active 5531983 1 Problem Skin cancer C44.90 Active 54515656 7 Problem DM neuro manif type II E11.49 Active 11576803 Problem Type 2 diabetes mellitus with diabetic neuropathy, uns pecified E11.40 Active 98152386 Problem snf (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 Z79.4 Active 146557893 Problem Mood disorder F39 Active 219884 05 Problem Agitation R45.1 Active 445943560 Problem Anemia of chronic illness D63.8 Acti ve 260823794 Problem Lymphocytosis D72.820 Active 963081 09 Problem Dysphagia, unspecified type R13.10 Ac tive 64156716 Problem Retinal edema H35.81 Active 774804 6 Problem Chronic lymphocytic leukemia C91.10 A ctive 61395552 Problem Pressure ulcer of other site, stage 3 L89.893 Active 245970349 Problem 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 [id number] [address] [place] [phone] Apr, [facility] [place] [address] [facility] [id number] [address] [place] [phone] Mar, [facility] [place] [address] [facility] [id number] [address] [place] [id number] Mar, [facility] [place] [address] [facility] [id number] [address] [place] [phone] Mar, [facility] [place] [address] [facility] [id number] [address] [place] [phone] Mar, [facility] [place] [address] [facility] [id number] [address] [place] [id number] Mar, [facility] [place] [address] [facility] [id number] [address] [place] [phone] Mar, Mood disorder F39 [facility] [place] [address] [facility] [id number] [address] [place] [phone] 02 Mar, 2020 Bipolar I disorder, most rec ent episode depressed, moderate F31.32 ; Anxiety F41.9 and Mild cognitive impairment G31.84 [place] [address] [facility] [id number] [address] [place] [id number] 26 Feb, 2020 Dysphagia, unspecified type R13.10 [place] [address] [id number] [address] [place] [id number] 25 Feb, 2020 Bipolar I disorder, most rec ent episode depressed, moderate F31.32 ; Anxiety F41.9 and Mild cognitive impairment G31.84 [place] [address] [facility] [id number] [address] [place] [id number] 24 Feb, 2020 [place] [address] [facility] [id number] [address] [place] [phone] Feb, Gastroesophageal reflux dise ase without esophagitis K21.9 [place] [address] [facility] [id number] [address] [place] [address] Feb, [place] [address] [facility] [id number] [address] [place] [phone] 18 Feb, 2020 Bipolar I disorder, most rec ent episode depressed, moderate F31.32 ; Anxiety F41.9 and Mild cognitive impairment G31.84 [place] [address] [facility] [id number] [address] [place] [phone] 17 Feb, 2020 Chronic pain G89.29 [place] [address] [facility] [id number] [address] [place] [address] Feb, Agitation R45.1 [place] [address] [facility] [id number] [address] [place] [phone] Feb, PVD (peripheral vascular dis ease) I73.9 ; Status post CVA Z86.73 ; Status post carotid endarterectomy Z98.890 ; Vertigo R42 ; Mild cognitive impairment G31.84 ; Type 2 diabetes mellitus with diabetic neuropathy, unspecified E11.40 and Essential hypertension I10 [facility] [place] [address] [id number] [address] [place] [phone] Feb, [facility] [place] [address] [id number] [address] [place] [phone] Feb, [facility] [place] [address] [facility] [id number] [address] [place] [phone] January, [facility] [place] [address] [id number] [address] [place] [address] January, Chronic pain G89.29 [facility] [place] [address] [id number] [address] [place] [phone] Dec, [facility] [place] [address] [facility] [id number] [address] [place] [address] Dec, Chronic pain G89.29 [facility] [place] [address] [facility] [id number] [address] [place] [phone] Dec, [facility] [place] [address] [id number] [address] [place] [phone] Dec, [facility] [place] [address] [facility] [id number] [address] [place] [phone] Dec, Gastroesophageal reflux dise ase without esophagitis K21.9 and Pure hypercholesterolemia E78.00 [facility] [place] [address] [facility] [id number] [address] [place] [id number] Dec, Mood disorder F39 [facility] [place] [address] [id number] [address] [place] [phone] Nov, Other secondary acute gout, 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 [facility] [place] [address] [facility] [id number] [address] [place] [phone] Nov, Gastroesophageal reflux dise ase without esophagitis K21.9 [facility] [place] [address] [facility] [id number] [address] [place] [address] Nov, Chronic pain G89.29 [facility] [place] [address] [id number] [address] [place] [id number] Nov, Bipolar I disorder, most rec ent episode depressed, moderate F31.32 ; Anxiety F41.9 and Mild cognitive impairment G31.84 [facility] [place] [address] [id number] [address] [place] [phone] Nov, [facility] [place] [address] [id number] [address] [place] [phone] Nov, Syncope, unspecified syncope type R55 [facility] [place] [address] [id number] [address] [place] [address] Nov, Mood disorder F39 [facility] [place] [address] [id number] [address] [place] [id number] Oct, Chronic pain G89.29 [facility] [place] [address] [facility] [id number] [address] [place] [phone] Oct, [facility] [place] [address] [id number] [address] [place] [phone] Oct, Mood disorder F39 [facility] [place] [address] [id number] [address] [place] [id number] Oct, [facility] [place] [address] [facility] [id number] [address] [place] [phone] Oct, Bipolar disorder, in partial remission, most recent episode depressed F31.75 and Mild cognitive impairment G31.84 [facility] [place] [address] [id number] [address] [place] [phone] Oct, Mood disorder F39 [facility] [place] [address] [id number] [address] [place] [id number] Sep, [facility] [place] [address] [facility] [id number] [address] [place] [id number] Sep, Mood disorder F39 [facility] [place] [address] [facility] [id number] [address] [place] [id number] Sep, Bipolar disorder, in partial remission, most recent episode depressed F31.75 and Mild cognitive impairment G31.84 [facility] [place] [address] [id number] [address] [place] [phone] Sep, Mood disorder F39 [facility] [place] [address] [id number] [address] [place] [id number] Sep, [facility] [place] [address] [id number] [address] [place] [phone] Sep, Mood disorder F39 [facility] [place] [address] [id number] [address] [place] [id number] Sep, [facility] [place] [address] [id number] [address] [place] [id number] Aug, Mood disorder F39 [facility] [place] [address] [id number] [address] [place] [phone] Aug, [facility] [place] [address] [id number] [address] [place] [id number] Aug, [facility] [place] [address] [id number] [address] [place] [id number] Aug, [facility] [place] [address] [id number] [address] [place] [id number] Aug, [facility] [place] [address] [id number] [address] [place] [id number] Aug, [facility] [place] [address] [id number] [address] [place] [phone] Aug, [facility] [place] [address] [id number] [address] [place] [id number] Aug, [facility] [place] [address] [id number] [address] [place] [id number] Aug, Essential hypertension I10 [facility] [place] [address] [id number] [address] [place] [phone] Aug, Bipolar disorder, in partial remission, most recent episode depressed F31.75 and Mild cognitive impairment G31.84 [facility] [place] [address] [id number] [address] [place] [phone] Aug, Mood disorder F39 [facility] [place] [address] [id number] [address] [place] [phone] Aug, [facility] [place] [address] [id number] [address] [place] [id number] Aug, Bipolar disorder, in partial remission, most recent episode depressed F31.75 and Mild cognitive impairment G31.84 [facility] [place] [address] [id number] [address] [place] [phone] Jul, Bipolar disorder, in partial remission, most recent episode depressed F31.75 and Mild cognitive impairment G31.84 [facility] [place] [address] [id number] [address] [place] [address] Jul, Psychophysiological insomnia F51.04 [facility] [place] [address] [id number] [address] [place] [phone] Jul, [facility] [place] [address] [id number] [address] [place] [id number] Jul, [facility] [place] [address] [id number] [address] [place] [phone] Jul, [facility] [place] [address] [id number] [address] [place] [phone] Jul, [facility] [place] [address] [id number] [address] [place] [phone] Jul, [facility] [place] [address] [id number] [address] [place] [phone] Jul, [facility] [place] [address] [id number] [address] [place] [phone] Jul, Bipolar disorder, in partial remission, most recent episode depressed F31.75 and Mild cognitive impairment G31.84 [facility] [place] [address] [id number] [address] [place] [address] Jul, Chronic pain G89.29 ; Diabet es E11.9 ; Essential hypertension I10 ; Ill feeling R68.89 ; Local infection of the skin and subcutaneous tissue, unspecified L08.9 and Other injury of unspecified body region, initial encounter T14.8XXA [facility] [place] [address] [id number] [address] [place] [phone] Jun, Bipolar disorder, in partial remission, most recent episode depressed F31.75 and Mild cognitive impairment G31.84 [facility] [place] [address] [id number] [address] [place] [phone] Jun, [place] [address] [id number] [address] [place] [address] Jun, Bipolar disorder, in partial remission, most recent episode depressed F31.75 and Mild cognitive impairment G31.84 [place] [address] [id number] [address] [place] [address] Jun, Psychophysiological insomnia F51.04 [place] [address] [id number] [address] [place] [id number] Jun, Psychophysiological insomnia F51.04 ; Chronic pain G89.29 ; Bipolar I disorder, most recent episode (or current) mixed, moderate F31.62 ; 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 ; Polyneuropathy associated with underlying disease G63 ; Type 2 diabetes mellitus with diabetic neuropathy, unspecified E11.40 ; manager terminal (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 Z79.4 and Hyperglycemia R73.9 [place] [address] [id number] [address] [place] [phone] Jun, Bipolar disorder, in partial remission, most recent episode depressed F31.75 and Mild cognitive impairment G31.84 [place] [address] [id number] [address] [place] [address] Jun, [place] [address] [id number] [address] [place] [phone] Jun, Bipolar disorder F31.9 [place] [address] [id number] [address] [place] [phone] 17 May, 2019 Bipolar disorder, in partial remission, most recent episode depressed F31.75 and Mild cognitive impairment G31.84 [facility] [place] [address] [id number] [address] [place] [phone] May, [facility] [place] [address] [facility] [id number] [address] [place] [phone] Apr, Chronic pain G89.29 and Bipo lar disorder F31.9 [facility] [place] [address] [id number] [address] [place] [address] Mar, Bipolar disorder F31.9 and C hronic pain G89.29 [facility] [place] [address] [id number] [address] [place] [id number] Feb, Bipolar disorder F31.9 [facility] [place] [address] [facility] [id number] [address] [place] [address] Feb, Cellulitis of right upper ex tremity L03.113 and Skin abrasion T14.8XXA [facility] [place] [address] [id number] [address] [place] [phone] Feb, Bipolar disorder, in partial remission, most recent episode depressed F31.75 and Mild cognitive impairment G31.84 [place] [address] [facility] [id number] [address] [place] [address] Feb, Chronic pain G89.29 [facility] [place] [address] [id number] [address] [place] [phone] Feb, Bipolar disorder, in partial remission, most recent episode depressed F31.75 and Mild cognitive impairment G31.84 [facility] [place] [address] [facility] [id number] [address] [place] [phone] January, Bipolar disorder, in partial remission, most recent episode depressed F31.75 and Mild cognitive impairment G31.84 [place] [address] [facility] [id number] [address] [place] [address] January, Chronic pain G89.29 and Bipo lar disorder F31.9 [facility] [place] [address] [id number] [address] [place] [phone] January, Bipolar disorder, in partial remission, most recent episode depressed F31.75 and Mild cognitive impairment G31.84 [facility] [place] [address] [id number] [address] [place] [phone] Dec, [facility] [place] [address] [id number] [address] [place] [phone] Dec, Chronic pain G89.29 and Bipo lar disorder F31.9 [facility] [place] [address] [id number] [address] [place] [phone] Dec, Edema of both lower extremit ies R60.0 [facility] [place] [address] [id number] [address] [place] [id number] Dec, Bipolar disorder F31.9 [facility] [place] [address] [id number] [address] [place] [phone] Dec, Bipolar disorder, in partial remission, most recent episode depressed F31.75 and Mild cognitive impairment G31.84 [facility] [place] [address] [id number] [address] [place] [phone] Nov, [facility] [place] [address] [id number] [address] [place] [phone] Nov, Chronic pain G89.29 [facility] [place] [address] [id number] [address] [place] [phone] Nov, Bipolar disorder, in partial remission, most recent episode depressed F31.75 and Mild cognitive impairment G31.84 [facility], [place], [facility] [address] [id number] [address] [place] [id number] Nov, Bipolar disorder F31.9 [facility], [place], [facility] [address] [id number] [address] [place] [id number] 04 Nov, 2018 [facility] ; Polyneuropathy associated with [...] unspecified morphology N40.1 and Essential hypertension I10 [address] [address] Oct, Chronic pain G89.[address] [id number] Oct, Diabetes E11.[address] [id number] Oct, Bipolar I disorder, most rec ent episode (or current) mixed, moderate F31.62 and Mild cognitive impairment G31.84 [place] [id number] [address] [place] [phone] Oct, Bipolar I disorder, most rec ent episode (or current) mixed, moderate F31.62 and Mild cognitive impairment G31.[address] [id number] Sep, Bipolar I disorder, most rec ent episode (or current) mixed, moderate F31.62 and Mild cognitive impairment G31.[address] [address] Sep, [address] [address] Sep, Diabetes E11.9 ; Hypoxia R09 .02 ; Hyperglycemia R73.9 ; Therapeutic drug monitoring Z51.81 ; BMI 50.0-59.9, adult Z68.43 and Skin cancer C44.[address] [id number] Sep, Chronic pain G89.29 [facility] [place] [address] [id number] [address] [place] [phone] Sep, Bipolar I disorder, most rec ent episode (or current) mixed, moderate F31.62 [facility] [place] [address] [id number] [address] [place] [phone] Sep, [facility] [place] [address] [facility] [id number] [address] [place] [phone] Sep, [facility] [place] [address] [id number] [address] [place] [phone] Aug, Chronic pain G89.29 [facility] [place] [address] [id number] [address] [place] [phone] Aug, Bipolar I disorder, most rec ent episode (or current) mixed, moderate F31.62 [facility] [place] [address] [facility] [id number] [address] [place] [id number] Aug, Bipolar I disorder, most rec ent episode (or current) mixed, moderate F31.62 and Mild cognitive impairment G31.84 [facility] [place] [address] [facility] [id number] [address] [place] [phone] Jul, [facility] [place] [address] [facility] [id number] [address] [place] [phone] Jul, Chronic pain G89.29 [facility] [place] [address] [facility] [id number] [address] [place] [phone] Jul, Bipolar I disorder, most rec ent episode (or current) mixed, moderate F31.62 and Mild cognitive impairment G31.84 [facility] [place] [address] [facility] [id number] [address] [place] [phone] Jul, Bipolar I disorder, most rec ent episode (or current) mixed, moderate F31.62 and MCI (mild cognitive impairment) G31.84 [facility] [place] [address] [facility] [id number] [address] [place] [phone] Jul, [facility] [place] [address] [id number] [address] [place] [phone] Jul, [facility] [place] [address] [id number] [address] [place] [phone] Jul, Bipolar I disorder, most rec ent episode (or current) mixed, moderate F31.62 [facility] [place] [address] [id number] [address] [place] [phone] Jul, Chronic pain G89.29 [facility] [place] [address] [id number] [address] [place] [phone] Jun, Bipolar I disorder, most rec ent episode (or current) mixed, moderate F31.62 [facility] [place] [address] [facility] [id number] [address] [place] [phone] Jun, Pre-procedure lab exam Z01.8 12 [facility] [place] [address] [facility] [id number] [address] [place] [phone] Jun, [facility] [address] [id number] [place] [id number] Jun, [facility] [place] [address] [facility] [id number] [address] [place] [phone] Jun, [facility] [place] [address] [facility] [id number] [address] [place] [phone] Jun, Forgetfulness R68.89 ; Pre-s yncope R55 ; Localized edema R60.0 ; Other iron deficiency anemia D50.8 and BMI 50.0-59.9, adult Z68.43 [facility] [place] [address] [id number] [address] [place] [phone] Jun, Chronic pain G89.29 [facility] [place] [address] [facility] [id number] [address] [place] [phone] Jun, Chronic pain G89.29 [facility] [place] [address] [facility] [id number] [address] [place] [phone] Jun, Bipolar I disorder, most rec ent episode (or current) mixed, moderate F31.62 [facility] [place] [address] [facility] [id number] [address] [place] [phone] 07 May, 2018 Chronic pain G89.29 [facility] [place] [address] [facility] [id number] [address] [place] [phone] Apr, [facility] [place] [address] [facility] [id number] [address] [place] [phone] Apr, Chronic pain G89.29 [facility] [place] [address] [facility] [id number] [address] [place] [phone] Apr, Primary osteoarthritis of ri ght knee M17.11 [facility] [place] [address] [facility] [id number] [address] [place] [phone] Mar, [place] [address] [facility] [id number] [address] [place] [address] Mar, BMI 50.0-59.9, adult Z68.43 and Bipolar disorder, in partial remission, most recent episode depressed F31.75 [place] [address] [facility] [id number] [address] [place] [phone] Mar, Diabetes E11.9 ; Pure hyperc holesterolemia E78.00 ; Essential hypertension I10 ; Nausea with vomiting, unspecified R11.2 and Headache, unspecified headache type R51 [place] [address] [facility] [id number] [address] [place] [phone] Mar, Bipolar I disorder, most rec ent episode (or current) mixed, moderate F31.62 [place] [address] [facility] [id number] [address] [place] [phone] Mar, Bipolar I disorder, most rec ent episode (or current) mixed, moderate F31.62 [place] [address] [facility] [id number] [address] [place] [phone] Mar, Chronic pain G89.29 [facility] [place] [address] [facility] [id number] [address] [place] [phone] Mar, Bipolar I disorder, most rec ent episode (or current) mixed, moderate F31.62 [facility] [place] [address] [id number] [address] [place] [id number] Feb, Bipolar I disorder, most rec ent episode (or current) mixed, moderate F31.62 [facility] [place] [address] [facility] [id number] [address] [place] [phone] 14 Feb, 2018 Chronic pain G89.29 [facility] [place] [address] [facility] [id number] [address] [place] [phone] Feb, Decubitus ulcer of right josselin t, stage 3 L89.893 and BMI 50.0-59.9, adult Z68.43 [facility] [place] [address] [facility] [id number] [address] [place] [phone] Feb, Bipolar I disorder, most rec ent episode (or current) mixed, moderate F31.62 [facility] [place] [address] [facility] [id number] [address] [place] [phone] Feb, [facility] [place] [address] [facility] [id number] [address] [place] [phone] January, [facility] [place] [address] [facility] [id number] [address] [place] [phone] January, Chronic pain G89.29 [facility] [place] [address] [facility] [id number] [address] [place] [phone] January, Bipolar I disorder, most rec ent episode (or current) mixed, moderate F31.62 [facility] [place] [address] [id number] [address] [place] [phone] January, Bipolar I disorder, most rec ent episode (or current) mixed, moderate F31.62 [facility] [place] [address] [facility] [id number] [address] [place] [phone] Dec, Bipolar I disorder, most rec ent episode (or current) mixed, moderate F31.62 and BMI 50.0-59.9, adult Z68.43 [facility] [place] [address] [place] [id number] [address] [place] [id number] Dec, Bipolar I disorder, most rec ent episode (or current) mixed, moderate F31.62 [place] [address] [facility] [id number] [address] [place] [phone] Dec, Chronic pain G89.29 [place] [address] [place] [id number] [address] [place] [phone] Dec, DM neuro manif type II E11.4 9 ; Right flank pain R10.9 ; manager terminal current use of opiate analgesic Z79.891 ; Encounter for medication monitoring Z51.81 and BMI 50.0-59.9, adult Z68.43 [place] [address] [place] [id number] [address] [place] [phone] Dec, Bipolar I disorder, most rec ent episode (or current) mixed, moderate F31.62 [place] [address] [place] [id number] [address] [place] [id number] Nov, Bipolar I disorder, most rec ent episode (or current) mixed, moderate F31.62 [place] [address] [place] [id number] [address] [place] [phone] Nov, Chronic pain G89.29 [place] [address] [place] [id number] [address] [place] [phone] Nov, Bipolar I disorder, most rec ent episode (or current) mixed, moderate F31.62 [place] [address] [place] [id number] [address] [place] [phone] Nov, Hypokalemia E87.6 [place] [address] [facility] [id number] [address] [place] [phone] Nov, Bipolar I disorder, most rec ent episode (or current) mixed, moderate F31.62 [place] [address] [place] [id number] [address] [place] [phone] Oct, Chronic pain G89.29 [place] [address] [place] [id number] [address] [place] [phone] Oct, BMI 50.0-59.9, adult Z68.43 and Bipolar I disorder, most recent episode (or current) mixed, moderate F31.62 [facility] [place] [address] [place] [id number] [address] [place] [phone] Oct, Bipolar I disorder, most rec ent episode (or current) mixed, moderate F31.62 [facility] [place] [address] [place] [id number] [address] [place] [address] Oct, [facility] [place] [address] [place] [id number] [place] [phone] Oct, Hypokalemia E87.6 [place] [address] [place] [id number] [place] [phone] Oct, DM neuro manif type II E11.4 9 [facility] [place] [address] [phone] Oct, Bipolar I disorder, most rec ent episode (or current) mixed, moderate F31.62 [facility] [place] [address] [place] [id number] [place] [phone] Oct, Bipolar I disorder, most rec ent episode (or current) mixed, moderate F31.62 [facility] [place] [address] [place] [id number] [address] [place] [phone] 14 Oct, 2017 Hyperkalemia E87.5 ; Falling R29.6 ; BMI 50.0-59.9, adult Z68.43 and Acute left ankle pain M25.572 [place] [address] [place] [id number] [place] [phone] Oct, DM neuro manif type II E11.4 9 [facility] [place] [address] [place] [id number] [address] [place] [phone] Oct, [facility] [place] [address] [place] [id number] [place] [phone] Sep, Chronic pain G89.29 [facility] [place] [address] [place] [id number] [address] [place] [address] Sep, [facility] [place] [address] [address] Sep, Bilateral primary osteoarthr itis of knee M17.0 [place] [address] [id number] Sep, Generalized edema R60.1 [place] [address] [place] [id number] [place] [phone] Sep, Bipolar I disorder, most rec ent episode (or current) mixed, moderate F31.62 [place] [address] [address] Sep, Hypoxia R09.02 ; Other hyper volemia E87.79 ; Diabetes E11.9 ; Retinal edema H35.81 ; Hypokalemia E87.6 ; 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 ; Anemia of chronic illness D63.8 and BMI 50.0- 59.9, adult Z68.43 [place] [address] [id number] Sep, [place] [address] [id number] Sep, Bipolar I disorder, most rec ent episode (or current) mixed, moderate F31.62 [place] [address] [place] [id number] [address] [place] [address] Aug, Chronic pain G89.29 [place] [address] [phone] Aug, Generalized edema R60.1 [place] [address] [place] [id number] [place] [phone] Aug, [place] [address] [id number] Aug, [facility] [place] [address] [facility] [id number] [address] [place] [phone] Aug, Bipolar I disorder, most rec ent episode (or current) mixed, moderate F31.62 [facility] [place] [address] [facility] [id number] [address] [place] [phone] Aug, Bipolar I disorder, most rec ent episode (or current) mixed, moderate F31.62 [facility] [place] [address] [facility] [id number] [address] [place] [id number] Aug, Chronic pain G89.29 [facility] [place] [address] [facility] [id number] [address] [place] [phone] Jul, Bipolar I disorder, most rec ent episode (or current) mixed, moderate F31.62 [facility] [place] [address] [place] [id number] [address] [place] [phone] Jul, Bipolar I disorder, most rec ent episode (or current) mixed, moderate F31.62 and BMI 60.0-69.9, adult Z68.44 [facility] [place] [address] [place] [id number] [address] [place] [phone] Jul, Bipolar I disorder, most rec ent episode (or current) mixed, moderate F31.62 [facility] [place] [address] [place] [id number] [address] [place] [phone] Jul, Chronic pain G89.29 [facility] [place] [address] [place] [id number] [address] [place] [phone] Jul, Bipolar I disorder, most rec ent episode (or current) mixed, moderate F31.62 [facility] [place] [address] [place] [id number] [address] [place] [phone] Jun, Polyneuropathy associated wi th underlying disease G63 and Diabetes E11.9 [facility] [place] [address] [facility] [id number] [address] [place] [phone] Jun, Bipolar I disorder, most rec ent episode (or current) mixed, moderate F31.62 [facility] [place] [address] [id number] [address] [place] [phone] 09 Jun, 2017 Chronic pain G89.29 [facility] [place] [address] [id number] [address] [place] [address] May, Bipolar I disorder, most rec ent episode (or current) mixed, moderate F31.62 [facility] [place] [address] [id number] [address] [place] [phone] May, Bipolar I disorder, most rec ent episode (or current) mixed, moderate F31.62 [facility] [place] [address] [id number] [address] [place] [address] May, Diabetic polyneuropathy asso ciated with type 2 diabetes mellitus E11.42 [facility] [place] [address] [facility] [id number] [address] [place] [id number] 18 May, 2017 Bipolar I disorder, most rec ent episode (or current) mixed, moderate F31.62 [facility] [place] [address] [facility] [id number] [address] [place] [phone] May, Bipolar I disorder, most rec ent episode (or current) mixed, moderate F31.62 [facility] [place] [address] [id number] [address] [place] [phone] May, Chronic pain G89.29 [facility] [place] [address] [id number] [address] [place] [phone] Apr, Bipolar I disorder, most rec ent episode (or current) mixed, moderate F31.62 [facility] [place] [address] [id number] [address] [place] [address] Apr, [facility] [place] [address] [facility] [id number] [address] [place] [phone] Apr, Chronic pain G89.29 and DM n euro manif type II E11.49 [facility] [place] [address] [id number] [address] [place] [phone] Apr, [facility] [place] [address] [facility] [id number] [address] [place] [phone] Apr, Bipolar I disorder, most rec ent episode (or current) mixed, moderate F31.62 [facility] [place] [address] [facility] [id number] [address] [place] [phone] Apr, Chronic pain G89.29 [facility] [place] [address] [facility] [id number] [address] [place] [address] Apr, Iliotibial band syndrome, le ft M76.32 [facility] [place] [address] [id number] [address] [place] [phone] Apr, Bipolar I disorder, most rec ent episode (or current) mixed, moderate F31.62 [facility] [place] [address] [facility] [id number] [address] [place] [phone] Mar, Bipolar I disorder, most rec ent episode (or current) mixed, moderate F31.62 [facility] [place] [address] [facility] [id number] [address] [place] [phone] Mar, Bipolar I disorder, most rec ent episode (or current) mixed, moderate F31.62 [facility] [place] [address] [facility] [id number] [address] [place] [phone] Mar, [facility] [place] [address] [facility] [id number] [address] [place] [phone] Mar, Bipolar I disorder, most rec ent episode (or current) mixed, moderate F31.62 [facility] [place] [address] [facility] [id number] [address] [place] [phone] Mar, Chronic pain G89.29 [facility], [place], [facility] [address] [id number] [address] [place] [id number] Mar, Bipolar I disorder, most rec ent episode (or current) mixed, moderate F31.62 [facility], [place], [facility] [address] [facility] [id number] [address] [place] [phone] Mar, Bipolar I disorder, most rec ent episode (or current) mixed, moderate F31.62 [place] [id number] [facility] [id number] [address] [place] [phone] Mar, Acute pain of left knee M25. 562 ; Left hip pain M25.552 ; Generalized edema R60.1 and Tongue swelling R22.0 [place] [address] [address] [place] [id number] [address] [place] [phone] Mar, [place] [address] [place] [id number] [place] [phone] Feb, Chronic pain G89.29 [place] [address] [place] [id number] [place] [phone] Feb, Diabetes E11.9 [place] [address] [place] [id number] [place] [phone] January, Chronic pain G89.29 [place] [address] [place] [id number] [address] [place] [phone] January, [place] [address] [place] [id number] [address] [place] [phone] January, Bipolar I disorder, most rec ent episode (or current) mixed, moderate F31.62 [place] [address] [phone] Dec, Bipolar I disorder, most rec ent episode (or current) mixed, moderate F31.62 [place] [address] [place] [id number] [address] [place] [id number] Dec, Chronic pain G89.29 [place] [address] [place] [id number] [address] [place] [phone] Dec, Bipolar I disorder, most rec ent episode (or current) mixed, moderate F31.62 [place] [address] [place] [id number] [address] [place] [phone] Dec, Diabetes E11.9 ; Essential h ypertension I10 ; Chronic pain G89.29 and Morbid obesity E66.01 [place] [address] [place] [id number] [place] [phone] Dec, [facility], [place], [facility] [address] [id number] [address] [place] [id number] Dec, Bipolar I disorder, most rec ent episode (or current) mixed, moderate F31.62 [facility], [place], [facility] [address] [facility] [id number] [address] [place] [phone] Dec, Bipolar I disorder, most rec ent episode (or current) mixed, moderate F31.62 [facility], [place], [facility] [address] [id number] [address] [place] [phone] Nov, Chronic pain G89.29 [facility] [place] [address] [id number] [address] [place] [address] Nov, Bipolar I disorder, most rec ent episode (or current) mixed, moderate F31.62 [facility] [place] [address] [facility] [id number] [address] [place] [phone] Nov, [facility] [place] [address] [id number] [address] [place] [phone] Nov, Bipolar I disorder, most rec ent episode (or current) mixed, moderate F31.62 [facility] [place] [address] [facility] [id number] [address] [place] [phone] Nov, Bipolar I disorder, most rec ent episode (or current) mixed, moderate F31.62 [facility] [place] [address] [facility] [id number] [address] [place] [phone] Nov, [facility] [place] [address] [facility] [id number] [address] [place] [phone] Nov, [facility] [place] [address] [facility] [id number] [address] [place] [phone] Nov, [facility] [place] [address] [facility] [id number] [address] [place] [address] Oct, Chronic pain G89.29 [facility] [place] [address] 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 [id number] [address] [place] [phone] Oct, Bipolar I disorder, most rec ent episode (or current) mixed, moderate F31.62 [facility] [place] [address] [id number] [address] [place] [address] Sep, Chronic pain G89.29 [facility] [place] [address] [facility] [id number] [address] [place] [id number] Sep, Chronic pain G89.29 [facility] [place] [address] [facility] [id number] [address] [place] [phone] Aug, Chronic pain G89.29 [facility] [place] [address] [id number] [address] [place] [id number] Jul, [facility] [place] [address] [id number] [address] [place] [phone] Jul, Diabetes E11.9 [facility] [place] [address] [id number] [address] [place] [id number] Jul, Chronic pain G89.29 [facility] [place] [address] [facility] [id number] [address] [place] [id number] Jul, Bipolar I disorder, most rec ent episode (or current) mixed, moderate F31.62 [facility] [place] [address] [facility] [id number] [address] [place] [address] Jun, Bipolar I disorder, most rec ent episode (or current) mixed, moderate F31.62 [facility] [place] [address] [facility] [id number] [address] [place] [address] Jun, [facility] [place] [address] [place] [id number] [address] [place] [phone] Jun, Bipolar I disorder, most rec ent episode (or current) mixed, moderate F31.62 [facility] [place] [address] [place] [id number] [address] [place] [id number] May, Insomnia, unspecified type G 47.00 [facility] [place] [address] [facility] [id number] [address] [place] [phone] May, Bipolar I disorder, most rec ent episode (or current) mixed, moderate F31.62 [facility] [place] [address] [place] [id number] [address] [place] [phone] May, [facility] [place] [address] [place] [id number] [address] [place] [address] May, Bipolar I disorder, most rec ent episode (or current) mixed, moderate F31.62 [facility] [place] [address] [place] [id number] [address] [place] [phone] May, Diabetes E11.9 and Essential hypertension I10 [facility] [place] [address] [facility] [id number] [address] [place] [address] Apr, Chronic pain G89.29 [facility] [place] [address] [place] [id number] [address] [place] [phone] Apr, Bipolar I disorder, most rec ent episode (or current) mixed, moderate F31.62 [facility] [place] [address] [place] [id number] [address] [place] [id number] Apr, [place] [address] [facility] [id number] [address] [place] [phone] Apr, [place] [address] [place] [id number] [address] [place] [address] Mar, Chronic pain G89.29 ; Headac he, unspecified headache type R51 ; Neuropathy G62.9 ; Pain of right hip joint M25.551 and Essential hypertension I10 [place] [address] [place] [id number] [address] [place] [address] Mar, Chronic pain G89.29 [place] [address] [place] [id number] [address] [place] [phone] Mar, Bipolar I disorder, most rec ent episode (or current) mixed, moderate F31.62 [place] [address] [place] [id number] [place] [phone] Feb, Bipolar I disorder, most rec ent episode (or current) mixed, moderate F31.62 and Insomnia, unspecified type G47.00 [place] [address] [place] [id number] [address] [place] [address] Feb, Chronic pain G89.29 [place] [address] [place] [id number] [address] [place] [phone] Feb, Bipolar I disorder, most rec ent episode (or current) mixed, moderate F31.62 [place] [address] [place] [id number] [address] [place] [phone] January, Bipolar I disorder, most rec ent episode (or current) mixed, moderate F31.62 [place] [address] [place] [id number] [address] [place] [address] January, Chronic pain G89.29 [place] [address] [place] [id number] [address] [place] [address] January, Chronic pain G89.29 and Esse ntial hypertension I10 [place] [address] [place] [id number] [address] [place] [phone] January, Bipolar I disorder, most rec ent episode (or current) mixed, moderate F31.62 [facility] [place] [address] [facility] [id number] [address] [place] [phone] Dec, [facility] [place] [address] [facility] [id number] [address] [place] [phone] Dec, [facility] [place] [address] [facility] [id number] [address] [place] [phone] Dec, [facility] [place] [address] [facility] [id number] [address] [place] [id number] Dec, [facility] [place] [address] [place] [id number] [address] [place] [address] Nov, Reactive airway disease J45. 909 [facility] [place], [facility] [address] [place] [id number] [address] [place] [phone] Nov, [facility] [place] [address] [place] [id number] [address] [place] [phone] Nov, [facility] [place] [address] [facility] [id number] [address] [place] [address] Nov, [facility] [place] [address] [place] [id number] [address] [place] [phone] Nov, [facility] [place] [address] [place] [id number] [address] [place] [phone] Nov, Onychomycosis B35.1 ; Hammer toe M20.40 ; [place] or callus L84 and DM neuro manif type II E11.49 [facility] [place] [address] [place] [id number] [address] [place] [address] Nov, Chronic pain G89.29 ; Leukoc ytosis D72.829 and Diabetes E11.9 [facility] [place] [address] [facility] [id number] [address] [place] [address] Nov, [facility] [place] [address] [place] [id number] [address] [place] [address] Oct, Bronchitis J40 [place] [id number] [address] Oct, [facility] [place] [address] [address] Oct, [place] [address] [address] Oct, Mastoiditis, unspecified lat erality H70.90 and Type 2 diabetes mellitus with complication E11.8 [place] [address] [address] Sep, [place] [address] [address] Sep, Dysuria R30.0 ; Cough R05 ; Benign prostatic hyperplasia with lower urinary tract symptoms, unspecified morphology N40.1 ; Hypokalemia E87.6 and Eustachian tube dysfunction, unspecified laterality H69.80 [place] [address] [address] Sep, Moderate mixed bipolar I dis order F31.62 [place] [address] [address] Sep, Hypokalemia E87.6 [place] [address] [id number] Sep, [place] [address] [id number] Sep, Upper respiratory tract infe ction, unspecified type J06.9 [place] [address] [id number] Aug, [place] [address] [address] Aug, Dysuria R30.0 [place] [address] [address] Aug, [facility] [place] [address] [id number] [address] [place] [phone] Jul, [facility] [place] [address] [id number] [address] [place] [phone] Jul, [facility] [place] [address] [id number] [address] [place] [phone] Jul, [facility] [place] [address] [id number] [address] [place] [id number] Jul, [facility] [place] [address] [id number] [address] [place] [phone] Jun, [facility] [place] [address] [id number] [address] [place] [phone] Jun, [facility] [place] [address] [id number] [address] [place] [phone] Jun, [facility] [place] [address] [id number] [address] [place] [phone] May, [facility] [place] [address] [id number] [address] [place] [phone] May, Bipolar I disorder, most rec ent episode (or current) mixed, moderate 296.62 [facility] [place] [address] [facility] [id number] [address] [place] [phone] May, [facility] [place] [address] [id number] [address] [place] [phone] May, Bipolar I disorder, most rec ent episode (or current) mixed, moderate 296.62 and Major depressive disorder, recurrent episode, severe, specified as with psychotic behavior 296.34 [facility] [place] [address] [id number] [address] [place] [phone] May, Bipolar I disorder, most rec ent episode (or current) mixed, moderate 296.62 [facility] [place] [address] [facility] [id number] [address] [place] [phone] May, [facility] [place] [address] [id number] [address] [place] [phone] Apr, [facility] [place] [address] [id number] [address] [place] [phone] Apr, [facility] [place] [address] [facility] [id number] [address] [place] [phone] Apr, Unspecified disorder of kidn ey and ureter 593.9 and Diabetes mellitus type 2, uncontrolled 250.02 [facility] [place] [address] [id number] [address] [place] [phone] Apr, [facility] [place] [address] [id number] [address] [place] [phone] Apr, [facility] [place] [address] [facility] [id number] [address] [place] [phone] Apr, [facility] [place] [address] [facility] [id number] [address] [place] [phone] Apr, [facility] [place] [address] [facility] [id number] [address] [place] [id number] Apr, Diabetes mellitus type II, u ncontrolled 250.02 [facility] [place] [address] [facility] [id number] [address] [place] [phone] Apr, [facility] [place] [address] [facility] [id number] [address] [place] [id number] Mar, [facility] [place] [address] [facility] [id number] [address] [place] [phone] Mar, [facility] [place] [address] [facility] [id number] [address] [place] [id number] Mar, [facility] [place] [address] [facility] [id number] [address] [place] [id number] Mar, Major depressive disorder, r ecurrent episode, severe, specified as with psychotic behavior 296.34 and Bipolar I disorder, most recent episode (or current) mixed, moderate 296.62 [facility] [place] [address] [facility] [id number] [address] [place] [address] Mar, Diabetes 250.00 ; Anuria 788 .5 ; Nausea and vomiting 787.01 and Diarrhea 787.91 [facility] [place] [address] [place] [id number] [address] [place] [address] Mar, Diabetes 250.00 [facility] [place] [address] [place] [id number] [address] [place] [address] Mar, [facility] [place] [address] [address] Mar, Diabetes 250.00 [facility] [place] [address] [id number] Mar, [facility] [place] [address] [address] Mar, [facility] [place] [address] [address] Mar, [facility] [place] [address] [place] [id number] [address] [place] [address] Mar, [facility] [place] [address] [address] Mar, Bipolar I disorder, most rec ent episode (or current) mixed, moderate 296.62 and Major depressive disorder, recurrent episode, severe, specified as with psychotic behavior 296.34 [facility] [place] [address] [place] [id number] [address] [place] [address] Mar, Magnesium deficiency 275.2 ; Hypokalemia 276.8 ; Nausea & vomiting 787.01 and Diabetes mellitus type 2, uncontrolled 250.02 [facility] [place] [address] [place] [id number] [address] [place] [address] Feb, [facility] [place] [address] [address] Feb, Bipolar I disorder, most rec ent episode (or current) mixed, moderate 296.62 [facility] [place] [address] [address] Feb, Nausea and vomiting 787.01 ; Left elbow pain 719.42 ; Anuria 788.5 and Diabetes 250.00 [facility] [place] [address] [id number] Feb, [facility] [place] [address] [address] Feb, Hypopotassemia 276.8 and Hyp okalemia 276.8 [place] [address] [address] Feb, Hypopotassemia 276.8 and Hyp okalemia 276.8 [place] [address] [address] Feb, Seborrheic keratoses 702.19 [place] [address] [address] Feb, Hypopotassemia 276.8 and Low magnesium levels 275.2 [place] [address] [address] January, [place] [address] [address] January, [facility] [place] [address] [address] January, [facility] [place] [address] [address] January, Scalp lesion 709.9 [facility] [place] [address] [address] January, [place] [address] [address] Dec, Tear of medial cartilage or meniscus of knee, current 836.0 and Chondromalacia 733.92 [facility] [place] [address] [address] Dec, [facility] [address] [id number] [address] [place] [address], [place] [address] Dec, [facility] [address] [id number] [address] [place] [address], [place] [address] 28 Dec, 2014 Squamous cell carcinoma, 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 [facility] [address] [id number] [address] [place] [address], [place] [address] 14 Dec, 2014 [facility] [address] [id number] [address] [place] [address], [place] [address] Dec, [facility] [address] [id number] [address] [place] [address], [place] [address] Nov, [facility] [address] [id number] [address] [place] [address], [place] [address] Nov, [facility] [address] [id number] [address] [place] [address], [place] [address] Nov, [facility] [address] [id number] [address] [place] [address], [place] [address] Nov, [facility] [address] [id number] [address] [place] [address], [place] [address] Nov, [facility] [address] [id number] [address] [place] [address], [place] [address] Nov, [facility] [address] [id number] [address] [place] [address], [place] [address] Nov, [facility] [address] [id number] [address] [place] [address], [place] [address] Nov, [facility] [address] [id number] [address] [place] [address], [place] [address] Nov, [facility] [address] [id number] [address] [place] [address], [place] [address] Nov, [facility] [address] [id number] [address] [place] [address], [place] [address] Nov, [facility] [address] [id number] [address] [place] [address], [place] [address] Nov, [facility] [address] [id number] [address] [place] [address], [place] [address] Oct, 2014 [facility] [address] [id number] [address] [place] [address], [place] [address] Oct, 2014 [facility] [address] [id number] [address] [place] [address], [place] [address] Oct, 2014 [facility] [address] [id number] [address] [place] [address], [place] [address] Oct, 2014 [facility] [address] [id number] [address] [place] [address], [place] [address] Oct, 2014 [facility] [address] [id number] [address] [place] [address], [place] [address] Oct, 2014 [facility] [address] [id number] [address] [place] [address], [place] [address] Oct, 2014 [facility] [address] [id number] [address] [place] [address], [place] [address] Oct, [facility] [address] [id number] [address] [place] [address], [place] [address] Oct, [facility] [address] [id number] [address] [place] [address], [place] [address] Sep, [facility] [address] [id number] [address] [place] [address], [place] [address] Sep, [facility] [address] [id number] [address] [place] [address], [place] [address] Sep, [facility] [address] [id number] [address] [place] [address], [place] [address] Sep, [facility] [address] [id number] [address] [place] [address], [place] [address] Sep, [facility] [address] [address] [id number] [address] [place] [address], [place] [address] Sep, [facility] [address] [id number] [address] [place] [address], [place] [address] Sep, [facility] [address] [id number] [address] [place] [address], [place] [address] Sep, [facility] [address] [id number] [address] [place] [address], [place] [address] Sep, [facility] [address] [id number] [address] [place] [address], [place] [address] Sep, [facility] [address] [id number] [address] [place] [address], [place] [address] Sep, [facility] [address] [id number] [address] [place] [address], [place] [address] Sep, [facility] [address] [id number] [address] [place] [address], [place] [address] Sep, [facility] [address] [id number] [address] [place] [address], [place] [address] Sep, [facility] [address] [id number] [address] [place] [address], [place] [address] Sep, [facility] [address] [id number] [address] [place] [address], [place] [address] Sep, [facility] [address] [id number] [address] [place] [address], [place] [address] Aug, [facility] [address] [id number] [address] [place] [address], [place] [address] Aug, [facility] [address] [id number] [address] [place] [address], [place] [address] Aug, [facility] [address] [id number] [address] [place] [address], [place] [address] Aug, [facility] [address] [id number] [address] [place] [address], [place] [address] Aug, [facility] [address] [id number] [facility] [place] [address] Aug, [facility] [address] [id number] [facility] [place] [address] Aug, [facility] [address] [id number] [facility] [place] [address] Aug, [facility] [address] [id number] [address] [place] [address], [place] [address] Aug, [facility] [address] [id number] [address] [place] [address], [place] [address] Aug, [facility] [address] [id number] [address] [place] [address], [place] [address] Aug, [facility] [place] [address] [place] [id number] Aug, [facility] [address] [id number] [address] [place] [address], [place] [address] Aug, [facility] [address] [id number] [address] [place] [address], [place] [address] Aug, [facility] [address] [id number] [address] [place] [address], [place] [address] Aug, [facility] [address] [id number] [address] [place] [address], [place] [address] Aug, [facility] [address] [id number] [address] [place] [address], [place] [address] Aug, [facility] [address] [id number] [address] [place] [address], [place] [address] Aug, [facility] [address] [id number] [address] [place] [address], [place] [address] Aug, [facility] [address] [id number] [address] [place] [address], [place] [address] Aug, [facility] [address] [id number] [address] [place] [address] [address] Aug, [facility] [address] [id number] [address] [place] [address], [place] [address] Aug, [facility] [address] [id number] [address] [place] [address], [place] [address] Aug, [facility] [address] [id number] [address] [place] [address], [place] [address] Aug, [facility] [address] [id number] [address] [place] [address], [place] [address] Aug, [facility] [address] [id number] [address] [place] [address], [place] [address] Aug, [facility] [address] [id number] [address] [place] [address], [place] [address] Aug, [facility] [address] [id number] [address] [place] [address], [place] [address] Aug, [facility] [address] [id number] [address] [place] [address], [place] [address] Aug, [facility] [address] [id number] [address] [place] [address], [place] [address] Aug, [facility] [address] [id number] [address] [place] [address], [place] [address] Jul, [facility] [address] [id number] [address] [place] [address], [place] [address] Jul, [facility] [address] [id number] [address] [place] [address], [place] [address] Jul, [facility] [address] [id number] [address] [place] [address], [place] [address] Jul, [facility] [address] [id number] [address] [place] [address], [place] [address] Jul, [facility] [address] [id number] [address] [place] [address], [place] [address] Jul, [facility] [address] [id number] [address] [place] [address], [place] [address] Jul, [facility] [address] [id number] [address] [place] [address], [place] [address] Jul, [facility] [address] [id number] [address] [place] [address], [place] [address] Jul, [facility] [address] [id number] [address] [place] [address], [place] [address] Jul, [facility] [address] [id number] [address] [place] [address], [place] [address] Jun, [facility] [address] [id number] [address] [place] [address], [place] [address] Jun, [facility] [address] [id number] [address] [place] [address], [place] [address] Jun, [facility] [address] [id number] [address] [place] [address], [place] [address] Jun, [facility] [address] [id number] [address] [place] [address], [place] [address] Jun, [facility] [address] [id number] [address] [place] [address], [place] [address] Jun, [facility] [address] [id number] [address] [place] [address], [place] [address] Jun, [facility] [address] [id number] [address] [place] [address], [place] [address] Jun, [facility] [address] [id number] [address] [place] [address], [place] [address] Jun, [facility] [address] [id number] [address] [place] [address], [place] [address] Jun, [facility] [address] [id number] [address] [place] [address], [place] [address] May, [facility] [address] [id number] [address] [place] [address], [place] [address] 29 May, 2014 [facility] [address] [id number] [facility] [place] [address] 26 Sep, 2013 [facility] [address] [id number] [address] [place] [address], [place] [address] 26 Sep, 2013 [facility] [address] [id number] [address] [place] [address], [place] [address] 17 May, 2013 [facility] [address] [id number] [address] [place] [address], [place] [address] 17 May, 2013 [facility] [address] [id number] [address] [place] [address], [place] [address] 15 May, 2013 [facility] [address] [id number] [address] [place] [address], [place] [address] 15 May, 2013 [facility] [address] [id number] [address] [place] [address], [place] [address] 15 May, 2013 [facility] [address] [id number] [address] [place] [address], [place] [address] 15 May, 2013 [facility] [address] [id number] [address] [place] [address], [place] [address] 10 May, 2013 [facility] [address] [id number] [address] [place] [address], [place] [address] 10 May, 2013 [facility] [address] [id number] [address] [place] [address], [place] [address] 09 May, 2013 [facility] [address] [id number] [address] [place] [address], [place] [address] 09 May, 2013 [facility] [address] [id number] [address] [place] [address], [place] [address] 04 May, 2013 [facility] [address] [id number] [address] [place] [address], [place] [address] 04 May, 2013 [facility] [address] [id number] [address] [place] [address], [place] [address] 30 Apr, 2014 [facility] [address] [id number] [address] [place] [address], [place] [address] Apr, [facility] [address] [id number] [facility] [place] [address] Apr, [facility] [address] [id number] [address] [place] [address], [place] [address] Apr, [facility] [address] [id number] [address] [place] [address], [place] [address] Apr, [facility] [address] [id number] [address] [place] [address], [place] [address] Apr, [facility] [address] [id number] [address] [place] [address], [place] [address] Apr, [facility] [address] [id number] [address] [place] [address], [place] [address] Apr, [facility] [address] [id number] [address] [place] [address], [place] [address] Apr, [facility] [address] [id number] [address] [place] [address], [place] [address] Apr, [facility] [address] [id number] [address] [place] [address], [place] [address] Apr, [facility] [address] [id number] [address] [place] [address], [place] [address] Apr, [facility] [address] [id number] [address] [place] [address], [place] [address] Apr, [facility] [address] [id number] [address] [place] [address], [place] [address] Apr, [facility] [address] [id number] [address] [place] [address], [place] [address] Apr, [facility] [address] [id number] [address] [place] [address], [place] [address] Mar, [facility] [address] [id number] [address] [place] [address], [place] [address] Mar, [facility] [address] [id number] [facility] [place] [address] Mar, 2013 [facility] [address] [id number] [facility] [place] [address] Mar, 2013 [facility] [address] [id number] [facility] [place] [address] Mar, 2013 [facility] [address] [id number] [address] [place] [address], [place] [address] Mar, 2013 [facility] [address] [id number] [address] [place] [address], [place] [address] Mar, 2013 [facility] [address] [id number] [address] [place] [address], [place] [address] Mar, 2013 [facility] [address] [id number] [address] [place] [address], [place] [address] Mar, 2013 [facility] [address] [id number] [address] [place] [address], [place] [address] Mar, 2013 [facility] [address] [id number] [address] [place] [address], [place] [address] Mar, 2013 [facility] [address] [id number] [address] [place] [address], [place] [address] Mar, 2013 [facility] [address] [id number] [address] [place] [address], [place] [address] Mar, 2013 [facility] [address] [id number] [address] [place] [address], [place] [address] Mar, 2013 [facility] [address] [id number] [address] [place] [address], [place] [address] Mar, 2013 [facility] [address] [id number] [address] [place] [address], [place] [address] Mar, 2013 [facility] [address] [id number] [address] [place] [address], [place] [address] Mar, 2013 [facility] [address] [id number] [address] [place] [address], [place] [address] Mar, [facility] [address] [id number] [facility] [place] [address] Feb, [facility] [address] [id number] [facility] [place] [address] Feb, [facility] [address] [id number] [facility] [place] [address] Feb, [facility] [address] [id number] [address] [place] [address], [place] [address] Feb, [facility] [address] [id number] [address] [place] [address], [place] [address] Feb, [facility] [address] [id number] [address] [place] [address], [place] [address] Feb, [facility] [address] [id number] [address] [place] [address], [place] [address] Feb, [facility] [address] [id number] [address] [place] [address], [place] [address] Feb, [facility] [address] [id number] [address] [place] [address], [place] [address] Feb, [facility] [address] [id number] [address] [place] [address], [place] [address] Feb, [facility] [address] [id number] [address] [place] [address], [place] [address] Feb, [facility] [address] [id number] [address] [place] [address], [place] [address] Feb, [facility] [address] [id number] [address] [place] [address], [place] [address] Feb, [facility] [address] [id number] [address] [place] [address], [place] [address] Feb, [facility] [address] [id number] [address] [place] [address], [place] [address] January, [facility] [address] [id number] [address] [place] [address], [place] [address] January, [facility] [address] [id number] [facility] [place] [address] January, [facility] [address] [id number] [address] [place] [address], [place] [address] January, [facility] [address] [id number] [address] [place] [address], [place] [address] January, [facility] [address] [id number] [address] [place] [address], [place] [address] January, [facility] [address] [id number] [address] [place] [address], [place] [address] January, [facility] [address] [id number] [address] [place] [address], [place] [address] January, [facility] [address] [id number] [address] [place] [address], [place] [address] January, [facility] [address] [id number] [address] [place] [address], [place] [address] January, [facility] [address] [id number] [address] [place] [address], [place] [address] January, [facility] [address] [id number] [address] [place] [address], [place] [address] January, [facility] [address] [id number] [address] [place] [address], [place] [address] January, [facility] [address] [id number] [address] [place] [address], [place] [address] January, [facility] [address] [id number] [address] [place] [address], [place] [address] Dec, [facility] [address] [id number] [address] [place] [address], [place] [address] Dec, [facility] [address] [id number] [address] [place] [address], [place] [address] Dec, [facility] [address] [id number] [facility] [place] [address] Dec, [facility] [address] [id number] [facility] [place] [address] Dec, [facility] [address] [id number] [facility] [place] [address] Dec, [facility] [address] [id number] [facility] [place] [address] Dec, [facility] [address] [id number] [facility] [place] [address] Dec, [facility] [address] [id number] [address] [place] [address], [place] [address] Dec, [facility] [address] [id number] [address] [place] [address], [place] [address] Dec, [facility] [address] [id number] [address] [place] [address], [place] [address] Nov, [facility] [address] [id number] [address] [place] [address], [place] [address] Nov, [facility] [address] [id number] [address] [place] [address], [place] [address] Nov, [facility] [address] [id number] [address] [place] [address], [place] [address] Nov, [facility] [address] [id number] [address] [place] [address], [place] [address] Nov, [facility] [address] [id number] [address] [place] [address], [place] [address] Nov, [facility] [address] [id number] [address] [place] [address], [place] [address] 05 Nov, 2013 [facility] [address] [id number] [address] [place] [address], [place] [address] 05 Nov, 2013 [facility] [address] [id number] [address] [place] [address], [place] [address] Nov, [facility] [address] [id number] [address] [place] [address], [place] [address] Nov, [facility] [address] [id number] [address] [place] [address], [place] [address] Oct, [facility] [address] [id number] [address] [place] [address], [place] [address] Oct, [facility] [address] [id number] [address] [place] [address], [place] [address] Oct, [facility] [address] [id number] [address] [place] [address], [place] [address] Oct, [facility] [address] [id number] [address] [place] [address], [place] [address] Oct, [facility] [address] [id number] [address] [place] [address], [place] [address] Oct, [facility] [address] [id number] [address] [place] [address], [place] [address] Oct, [facility] [address] [id number] [address] [place] [address], [place] [address] Oct, [facility] [address] [id number] [address] [place] [address], [place] [address] Oct, [facility] [address] [id number] [address] [place] [address], [place] [address] Oct, 2013 [facility] [address] [id number] [address] [place] [address], [place] [address] Oct, [facility] [address] [id number] [address] [place] [address], [place] [address] Oct, [facility] [address] [id number] [address] [place] [address], [place] [address] Oct, [facility] [address] [id number] [address] [place] [address], [place] [address] Oct, [facility] [address] [id number] [address] [place] [address], [place] [address] Sep, [facility] [address] [id number] [address] [place] [address], [place] [address] Sep, [facility] [address] [id number] [address] [place] [address], [place] [address] Sep, [facility] [address] [id number] [address] [place] [address], [place] [address] Sep, [facility] [address] [id number] [address] [place] [address], [place] [address] Sep, [facility] [address] [id number] [address] [place] [address], [place] [address] Sep, [facility] [address] [id number] [address] [place] [address], [place] [address] Sep, [facility] [address] [id number] [address] [place] [address], [place] [address] Sep, [facility] [address] [id number] [address] [place] [address], [place] [address] Sep, [facility] [address] [id number] [address] [place] [address], [place] [address] Sep, [facility] [address] [id number] [address] [place] [address], [place] [address] Aug, [facility] [address] [id number] [address] [place] [address], [place] [address] Aug, [facility] [address] [id number] [address] [place] [address], [place] [address] Jul, [facility] [address] [id number] [address] [place] [address], [place] [address] Jul, [facility] [address] [id number] [address] [place] [address], [place] [address] Jul, [facility] [address] [id number] [address] [place] [address] Jul, [facility] [address] [id number] [address] [place] [address], [place] [address] Jul, [facility] [address] [id number] [address] [place] [address] Jul, [facility] [address] [id number] [address] [place] [address], [place] [address] Jul, [facility] [address] [id number] [address] [place] [address] Jul, [facility] [address] [id number] [address] [place] [address], [place] [address] Jul, [facility] [address] [id number] [address] [place] [address], [place] [address] Jul, [facility] [address] [id number] [address] [place] [address], [place] [address] Jul, [facility] [address] [id number] [address] [place] [address], [place] [address] Jul, [facility] [address] [id number] [address] [place] [address] Jul, [facility] [address] [id number] [address] [place] [address], [place] [address] Jul, [facility] [address] [id number] [address] [place] [address] Jul, [facility] [address] [id number] [address] [place] [address] Jul, [facility] [address] [id number] [address] [place] [address] Jul, [facility] [address] [id number] [address] [place] [address], [place] [address] Jul, [facility] [address] [id number] [address] [place] [address], [place] [address] Jul, [facility] [address] [id number] [address] [place] [address], [place] [address] 16 Jun, 2012 [facility] [address] [id number] [address] [place] [address], [place] [address] 16 Jun, 2012 [facility] [address] [id number] [address] [place] [address], [place] [address] 16 Jun, 2012 [facility] [address] [id number] [address] [place] [address], [place] [address] 16 Jun, 2012 [facility] [address] [id number] [address] [place] [address], [place] [address] 16 Jun, 2012 [facility] [address] [id number] [address] [place] [address], [place] [address] 16 Jun, 2012 [facility] [address] [id number] [address] [place] [address], [place] [address] 10 Jun, 2012 [facility] [address] [id number] [address] [place] [address], [place] [address] 10 Jun, 2012 [facility] [facility] [address] [id number] [address] [place] [address], [place] [address] 09 Jun, 2012 [facility] [address] [id number] [address] [place] [address], [place] [address] 09 Jun, 2012 [facility] [address] [id number] [address] [place] [address], [place] [address] Jun, 2012 [facility] [address] [id number] [address] [place] [address], [place] [address] 26 May, 2012 [facility] [address] [id number] [address] [place] [address], [place] [address] 25 Sep, 2012 [facility] [address] [id number] [address] [place] [address], [place] [address] 19 Sep, 2012 [facility] [address] [id number] [address] [place] [address], [place] [address] 17 Sep, 2012 [facility] [address] [id number] [address] [place] [address], [place] [address] May, [facility] [address] [id number] [address] [place] [address], [place] [address] May, [facility] [address] [id number] [address] [place] [address], [place] [address] May, [facility] [address] [id number] [address] [place] [address], [place] [address] May, [facility] [address] [id number] [address] [place] [address], [place] [address] Apr, [facility] [address] [id number] [address] [place] [address], [place] [address] Apr, [facility] [address] [id number] [address] [place] [address], [place] [address] Apr, [facility] [address] [id number] [address] [place] [address], [place] [address] Apr, [facility] [address] [id number] [address] [place] [address], [place] [address] Apr, [facility] [address] [id number] [address] [place] [address], [place] [address] Mar, [facility] [address] [id number] [address] [place] [address], [place] [address] Mar, [facility] [address] [id number] [address] [place] [address], [place] [address] Mar, [facility] [address] [id number] [address] [place] [address], [place] [address] Mar, [facility] [address] [id number] [address] [place] [address], [place] [address] Mar, [facility] [address] [id number] [address] [place] [address], [place] [address] Mar, [facility] [address] [id number] [address] [place] [address], [place] [address] Mar, [facility] [address] [id number] [address] [place] [address], [place] [address] Mar, [facility] [address] [id number] [address] [place] [address], [place] [address] Feb, [facility] [address] [id number] [address] [place] [address], [place] [address] Feb, [facility] [address] [id number] [address] [place] [address], [place] [address] January, [facility] [address] [id number] [address] [place] [address], [place] [address] January, [facility] [address] [id number] [address] [place] [address], [place] [address] Dec, [facility] [address] [id number] [address] [place] [address], [place] [address] Dec, [facility] [address] [id number] [address] [place] [address], [place] [address] Nov, [facility] [address] [id number] [address] [place] [address], [place] [address] Nov, [facility] [address] [id number] [address] [place] [address], [place] [address] Nov, [facility] [address] [id number] [address] [place] [address], [place] [address] Nov, [facility] [address] [id number] [address] [place] [address], [place] [address] Oct, [facility] [address] [id number] [address] [place] [address], [place] [address] Oct, [facility] [address] [id number] [address] [place] [address], [place] [address] Oct, [facility] [address] [id number] [address] [place] [address], [place] [address] Oct, [facility] [address] [id number] [address] [place] [address], [place] [address] 16 Oct, 2012 [facility] [address] [id number] [address] [place] [address], [place] [address] 14 Oct, 2012 [facility] [address] [id number] [address] [place] [address], [place] [address] 08 Oct, 2012 [facility] [address] [id number] [address] [place] [address], [place] [address] 07 Oct, 2012 [facility] [address] [id number] [address] [place] [address], [place] [address] 03 Oct, 2012 [facility] [address] [id number] [address] [place] [address], [place] [address] 30 Sep, 2012 [facility] [address] [id number] [address] [place] [address], [place] [address] Sep, [facility] [address] [id number] [address] [place] [address], [place] [address] Sep, [facility] [address] [id number] [address] [place] [address], [place] [address] Sep, [facility] [address] [id number] [address] [place] [address], [place] [address] Sep, [facility] [address] [id number] [address] [place] [address], [place] [address] Sep, [facility] [address] [id number] [address] [place] [address], [place] [address] Sep, [facility] [address] [id number] [address] [place] [address], [place] [address] Sep, [facility] [address] [id number] [address] [place] [address], [place] [address] Aug, [facility] [address] [id number] [address] [place] [address], [place] [address] Aug, [facility] [address] [id number] [address] [place] [address], [place] [address] Aug, [facility] [address] [id number] [address] [place] [address], [place] [address] Aug, [facility] [address] [id number] [address] [place] [address], [place] [address] Aug, [facility] [address] [id number] [address] [place] [address], [place] [address] Aug, [facility] [address] [id number] [address] [place] [address], [place] [address] Aug, [facility] [address] [id number] [address] [place] [address], [place] [address] Aug, [facility] [address] [id number] [address] [place] [address], [place] [address] Jul, [facility] [address] [id number] [address] [place] [address], [place] [address] Jul, [facility] [address] [id number] [address] [place] [address], [place] [address] Jul, [facility] [address] [id number] [address] [place] [address], [place] [address] Jul, [facility] [address] [id number] [address] [place] [address], [place] [address] Jul, [facility] [address] [id number] [address] [place] [address], [place] [address] Jul, [facility] [address] [id number] [address] [place] [address], [place] [address] Jun, [facility] [address] [id number] [address] [place] [address], [place] [address] Jun, [facility] [address] [id number] [address] [place] [address], [place] [address] Jun, [facility] [address] [id number] [address] [place] [address], [place] [address] Jun, [facility] [address] [id number] [address] [place] [address], [place] [address] Jun, [facility] [address] [id number] [address] [place] [address], [place] [address] Jun, [facility] [address] [id number] [address] [place] [address], [place] [address] Jun, [facility] [address] [id number] [address] [place] [address], [place] [address] Jun, [facility] [address] [id number] [address] [place] [address], [place] [address] Jun, [facility] [address] [id number] [address] [place] [address], [place] [address] 26 May, 2012 [facility] [address] [id number] [address] [place] [address], [place] [address] 24 May, 2012 [facility] [address] [id number] [address] [place] [address], [place] [address] 18 May, 2012 [facility] [address] [id number] [address] [place] [address], [place] [address] 30 Apr, 2012 [facility] [address] [id number] [address] [place] [address], [place] [address] Apr, [facility] [address] [id number] [address] [place] [address], [place] [address] Apr, [facility] [address] [id number] [address] [place] [address], [place] [address] Apr, [facility] [address] [id number] [address] [place] [address], [place] [address] Apr, [facility] [address] [id number] [address] [place] [address], [place] [address] Apr, [facility] [address] [id number] [address] [place] [address], [place] [address] Mar, [facility] [address] [id number] [address] [place] [address], [place] [address] Mar, [facility] [address] [id number] [address] [place] [address], [place] [address] Mar, [facility] [address] [id number] [address] [place] [address], [place] [address] Mar, [facility] [address] [id number] [address] [place] [address], [place] [address] Feb, [facility] [address] [id number] [address] [place] [address], [place] [address] Feb, [facility] [address] [id number] [address] [place] [address], [place] [address] Feb, [facility] [address] [id number] [address] [place] [address], [place] [address] Feb, [facility] [address] [id number] [address] [place] [address], [place] [address] Feb, [facility] [address] [id number] [address] [place] [address], [place] [address] January, [facility] [address] [id number] [address] [place] [address], [place] [address] January, [facility] [address] [id number] [address] [place] [address], [place] [address] January, [facility] [address] [id number] [address] [place] [address], [place] [address] January, [facility] [address] [id number] [address] [place] [address], [place] [address] January, [facility] [address] [id number] [address] [place] [address], [place] [address] January, [facility] [address] [id number] [address] [place] [address], [place] [address] Dec, [facility] [address] [id number] [address] [place] [address], [place] [address] Dec, [facility] [address] [id number] [address] [place] [address], [place] [address] Dec, [facility] [address] [id number] [address] [place] [address], [place] [address] 09 Dec, 2011 [facility] [address] [id number] [address] [place] [address], [place] [address] 06 Dec, 2011 [facility] [address] [id number] [address] [place] [address], [place] [address] 27 Nov, 2011 [facility] [address] [id number] [address] [place] [address], [place] [address] 14 Nov, 2011 [facility] [address] [id number] [address] [place] [address], [place] [address] 12 Nov, 2011 [facility] [address] [id number] [address] [place] [address], [place] [address] 07 Nov, 2011 [facility] [address] [id number] [address] [place] [address], [place] [address] 29 Oct, 2011 [facility] [address] [id number] [address] [place] [address], [place] [address] 28 Oct, 2011 [facility] [address] [id number] [address] [place] [address], [place] [address] 24 Oct, 2011 [facility] [address] [id number] [address] [place] [address], [place] [address] 13 Oct, 2011 [facility] [address] [id number] [address] [place] [address], [place] [address] 08 Oct, 2011 [facility] [address] [id number] [address] [place] [address], [place] [address] Sep, [facility] [address] [id number] [address] [place] [address], [place] [address] 30 Sep, 2011 [facility] [address] [id number] [address] [place] [address], [place] [address] Sep, [facility] [address] [id number] [address] [place] [address], [place] [address] Sep, [facility] [address] [id number] [address] [place] [address], [place] [address] Sep, [facility] [address] [id number] [address] [place] [address], [place] [address] Sep, [facility] [address] [id number] [address] [place] [address], [place] [address] Aug, [facility] [address] [id number] [address] [place] [address], [place] [address] Aug, [facility] [address] [id number] [address] [place] [address], [place] [address] Aug, [facility] [address] [id number] [address] [place] [address], [place] [address] Jul, [facility] [address] [id number] [address] [place] [address], [place] [address] Jul, [facility] [address] [id number] [address] [place] [address], [place] [address] Jul, [facility] [address] [id number] [address] [place] [address], [place] [address] Jul, [facility] [address] [id number] [address] [place] [address], [place] [address] Jun, [facility] [address] [id number] [address] [place] [address], [place] [address] Jun, [facility] [address] [id number] [address] [place] [address] Jun, [facility] [address] [id number] [address] [place] [address] Jun, [facility] [address] [id number] [address] [place] [address], [place] [address] Jun, [facility] [address] [id number] [address] [place] [address], [place] [address] Jun, [facility] [address] [id number] [address] [place] [address] Mar, [facility] [address] [id number] [address] [place] [address], [place] [address] 18 Dec, 2010 [facility] [address] [id number] [address] [place] [address], [place] [address] 11 Dec, 2010 [facility] [address] [id number] [address] [place] [address], [place] [address] 18 Nov, 2010 [facility] [address] [id number] [address] [place] [address], [place] [address] 16 Nov, 2010 [facility] [address] [id number] [address] [place] [address], [place] [address] 10 Sep, 2010 [facility] [address] [id number] [address] [place] [address], [place] [address] 31 Aug, 2010 [facility] [address] [id number] [address] [place] [address], [place] [address] 29 Aug, 2010 [facility] [address] [id number] [address] [place] [address], [place] [address] 29 Aug, 2010 [facility] [address] [id number] [address] [place] [address], [place] [address] 29 Aug, 2010 [facility] [address] [id number] [address] [place] [address], [place] [address] 27 Aug, 2010 [facility] [address] [id number] [address] [place] [address], [place] [address] 14 Aug, 2010 [facility] [address] [id number] [address] [place] [address], [place] [address] 08 Aug, 2010 [facility] [address] [id number] [address] [place] [address], [place] [address] 08 Aug, 2010 [facility] [address] [id number] [address] [place] [address], [place] [address] 07 Aug, 2010 [facility] [address] [id number] [address] [place] [address], [place] [address] 06 Aug, 2010 [facility] [address] [id number] [address] [place] [address], [place] [address] Aug, [facility] [address] [id number] [address] [place] [address], [place] [address] Aug, [facility] [address] [id number] [address] [place] [address], [place] [address] Jul, [facility] [address] [id number] [address] [place] [address], [place] [address] Jul, [facility] [address] [id number] [address] [place] [address], [place] [address] Jul, [facility] [address] [id number] [address] [place] [address], [place] [address] Jul, [facility] [address] [id number] [address] [place] [address], [place] [address] Jul, [facility] [address] [id number] [address] [place] [address], [place] [address] Jul, [facility] [address] [id number] [address] [place] [address], [place] [address] Jun, [facility] [address] [id number] [address] [place] [address], [place] [address] Jun, [facility] [address] [id number] [address] [place] [address], [place] [address] Jun, [facility] [address] [id number] [address] [place] [address], [place] [address] Jun, [facility] [address] [id number] [address] [place] [address], [place] [address] Apr, [facility] [address] [id number] [address] [place] [address], [place] [address] Mar, [facility] [address] [id number] [address] [place] [address], [place] [address] Feb, [facility] [address] [id number] [address] [place] [address], [place] [address] January, [facility] [address] [id number] [address] [place] [address] 15 Dec, 2009 [facility] [address] [id number] [address] [place] [address] Nov, [facility] [address] [id number] [address] [place] [address] Aug, [facility] [address] [id number] [address] [place] [address] Aug, [facility] [address] [id number] [address] [place] [address] Aug, [facility] [address] [id number] [address] [place] [address], [place] [address] Jul, [facility] [address] [id number] [address] [place] [phone] Jul, [facility] [address] [id number] [address] [place] [phone] Jul, [facility] [address] [id number] [address] [place] [id number] 30 Jun, 2009 [facility] [address] [id number] [address] [place] [phone] 29 Jun, 2009 [facility] [address] [id number] [address] [place] [phone] Jun, [facility] [address] [id number] [address] [place] [phone] Jun, [facility] [address] [id number] [address] [place] [phone] Jun, [facility] [address] [id number] [address] [place] [id number] Jun, [facility] [address] [id number] [address] [place] [id number] Apr, [facility] [address] [id number] [address] [place] [id number] Apr, [facility] [address] [id number] [address] [place] [id number] Feb, [facility] [place] [address] [facility] [id number] [address] [place] [id number] January, [facility] [place] [address] [facility] [id number] [address] [place] [phone] Dec, IMMUNIZATIONS No Known Immunizations SOCIAL HISTORY Never Assessed REASON FOR VISIT PLAN OF CARE VITAL SIGNS Blood pressure systolic 138 mmHg 2013-06-13 Blood pressure diastolic 92 mmHg 2013-06-13 MEDICATIONS Unknown Medications RESULTS No Results PROCEDURES [...] EGD ([facility]) 2009 Surgical History colonoscopy 2009 ([facility]), 2013 ([place] ) Surgical History heart cath: CAD w/ [...] History inability to urinate 09/16/15 Hospitalization History [facility] r[facility] 1999' Hospitalization History hyperkalemia 10/2017 Hospitalization History fluid in lung Hospitalization History stroke, 02/2020
--- OUTSIDE RECORDS SUMMARY | 2020-04-11 11:04 | XMS REPORT ---
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 Name Role Phone NOEMI WASHBURN Unavailable PROBLEMS Type Condition ICD9-CM Code QBE97-MI Code Onset Dates Condition S tatus SNOMED Code Problem Insomnia, unspecified type G47.00 Act sharon 058443960 Problem Morbid obesity E66.01 Active 79398 6002 Problem Anxiety F41.9 Active 09574244 Problem Diabetic polyneuropathy associated with type 2 d iabetes mellitus E11.42 Active 35672620 Problem Essential hypertension I10 Active 23383401 Problem Bilateral primary osteoarthritis of knee M17.0 Active 873813180 Problem Polyneuropathy associated with underlying disease G63 Active 921562296 Problem Psychophysiological insomnia F51.04 A ctive 561444429 Problem Leukocytosis D72.829 Active 4663510 06 Problem Chronic diastolic (congestive) heart failure I50.3 2 Active 708398387 Problem Diabetes E11.9 Active 96755617 Problem Bipolar I disorder, most recent episode (or curr ent) mixed, moderate F31.62 Active 37855534 Problem Reactive airway disease J45.909 Active 192575709134 Problem Bipolar disorder, in partial remission, most rec ent episode depressed F31.75 Active 12663571 Problem Falling R29.6 Active 350436065 Problem Primary osteoarthritis of right knee M17.11 Active [id number] Problem Cough R05 Active 96159836 Problem Pure hypercholesterolemia E78.00 Acti ve 608178204 Problem Dysuria R30.0 Active 14120310 Problem Mild cognitive impairment G31.84 Acti ve 854850500 Problem Benign prostatic hyperplasia with lower urinary tract symptoms, unspecified morphology N40.1 Active 46250 6007 Problem Other iron deficiency anemia D50.8 A ctive 65728575 Problem Eustachian tube dysfunction, unspecified laterality H69.80 Active 51911923 Problem Bipolar disorder F31.9 Active 137 09472 Problem Chronic pain G89.29 Active 8081502 1 Problem Skin cancer C44.90 Active 28273680 7 Problem DM neuro manif type II E11.49 Active 43337833 Problem Type 2 diabetes mellitus with diabetic neuropathy, uns pecified E11.40 Active 97507982 Problem half-way (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 Z79.4 Active 688215743 Problem Mood disorder F39 Active 722508 05 Problem Agitation R45.1 Active 660142352 Problem Anemia of chronic illness D63.8 Acti ve 298801418 Problem Lymphocytosis D72.820 Active 077135 09 Problem Dysphagia, unspecified type R13.10 Ac tive 76916406 Problem Retinal edema H35.81 Active 817415 6 Problem Chronic lymphocytic leukemia C91.10 A ctive 97299158 Problem Pressure ulcer of other site, stage 3 L89.893 Active 845226930 Problem 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 Active 829956943 Problem Eye exam abnormal R93.8 Active 16 8688082 Problem Bipolar I disorder, most recent episode depressed, moderat e F31.32 Active 082553651 Problem Gastroesophageal reflux disease without esophagitis K21.9 Active 466170169 Problem Hypokalemia E87.6 Active 53001844 Problem Other secondary acute gout, 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 [address] [facility] [id number] [address] [place] [phone] Mar, [facility] [address] [facility] [id number] [address] [place] [id number] Mar, [facility] [address] [facility] [id number] [address] [place] [phone] Mar, [facility] [address] [facility] [id number] [address] [place] [id number] Mar, [facility] [address] [facility] [id number] [address] [place] [id number] Mar, Mood disorder F39 [place] [address] [address] [facility] [id number] [address] [place] [id number] 02 Mar, 2020 Bipolar I disorder, most rec ent episode depressed, moderate F31.32 ; Anxiety F41.9 and Mild cognitive impairment G31.84 [place] [address] [address] [facility] [id number] [address] [place] [id number] 26 Feb, 2020 Dysphagia, unspecified type R13.10 [place] [address] [address] [facility] [id number] [address] [place] [id number] 25 Feb, 2020 Bipolar I disorder, most rec ent episode depressed, moderate F31.32 ; Anxiety F41.9 and Mild cognitive impairment G31.84 [place] [address] [address] [facility] [id number] [address] [place] [id number] 24 Feb, 2020 [place] [address] [address] [facility] [id number] [address] [place] [id number] 24 Feb, 2020 Gastroesophageal reflux dise ase without esophagitis K21.9 [place] [address] [address] [facility] [id number] [address] [place] [phone] Feb, [place] [address] [address] [facility] [id number] [address] [place] [id number] 18 Feb, 2020 Bipolar I disorder, most rec ent episode depressed, moderate F31.32 ; Anxiety F41.9 and Mild cognitive impairment G31.84 [place] [address] [address] [facility] [id number] [address] [place] [id number] 17 Feb, 2020 Chronic pain G89.29 [place] [address] [address] [facility] [id number] [address] [place] [id number] Feb, Agitation R45.1 [place] [address] [address] [place] [id number] [address] [place] [phone] Feb, PVD (peripheral vascular dis ease) I73.9 ; Status post CVA Z86.73 ; Status post carotid endarterectomy Z98.890 ; Vertigo R42 ; Mild cognitive impairment G31.84 ; Type 2 diabetes mellitus with diabetic neuropathy, unspecified E11.40 and Essential hypertension I10 [facility] [address] [id number] [address] [place] [id number] Feb, [facility] [address] [id number] [address] [place] [id number] Feb, [facility] [address] [id number] [address] [place] [id number] January, [facility] [address] [id number] [address] [place] [id number] January, Chronic pain G89.29 [facility] [address] [id number] [address] [place] [id number] Dec, [facility] [address] [id number] [address] [place] [id number] Dec, Chronic pain G89.29 [facility] [address] [id number] [address] [place] [phone] Dec, [facility] [address] [id number] [address] [place] [id number] Dec, [facility] [address] [id number] [address] [place] [id number] Dec, Gastroesophageal reflux dise ase without esophagitis K21.9 and Pure hypercholesterolemia E78.00 [facility] [address] [id number] [address] [place] [phone] Dec, Mood disorder F39 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 [address] [id number] [address] [place] [id number] 25 Nov, 2019 Gastroesophageal reflux dise ase without esophagitis K21.9 [facility] [address] [id number] [address] [place] [id number] Nov, Chronic pain G89.29 [facility] [address] [facility] [id number] [address] [place] [id number] Nov, Bipolar I disorder, most rec ent episode depressed, moderate F31.32 ; Anxiety F41.9 and Mild cognitive impairment G31.84 [facility] [address] [id number] [address] [place] [phone] Nov, [facility] [address] [facility] [id number] [address] [place] [phone] Nov, Syncope, unspecified syncope type R55 [facility] [address] [id number] [address] [place] [id number] Nov, Mood disorder F39 [facility] [address] [facility] [id number] [address] [place] [id number] Oct, Chronic pain G89.29 [facility] [address] [facility] [id number] [address] [place] [id number] Oct, [facility] [address] [facility] [id number] [address] [place] [id number] Oct, Mood disorder F39 [facility] [address] [facility] [id number] [address] [place] [id number] Oct, [facility] [address] [facility] [id number] [address] [place] [id number] Oct, Bipolar disorder, in partial remission, most recent episode depressed F31.75 and Mild cognitive impairment G31.84 [facility] [address] [facility] [id number] [address] [place] [id number] 04 Oct, [address] [facility] [address] [facility] [id number] [address] [place] [id number] Sep, [facility] [address] [facility] [id number] [address] [place] [id number] Sep, Mood disorder F39 [facility] [address] [facility] [id number] [address] [place] [id number] Sep, Bipolar disorder, in partial remission, most recent episode depressed F31.75 and Mild cognitive impairment G31.84 [facility] [address] [id number] [address] [place] [id number] Sep, Mood disorder F39 [facility] [address] [id number] [address] [place] [id number] Sep, [facility] [address] [id number] [address] [place] [id number] Sep, Mood disorder F39 [facility] [address] [id number] [address] [place] [phone] Sep, [facility] [address] [id number] [address] [place] [phone] Aug, Mood disorder F39 [facility] [address] [id number] [address] [place] [id number] Aug, [facility] [address] [id number] [address] [place] [id number] Aug, [facility] [address] [id number] [address] [place] [id number] Aug, [facility] [address] [id number] [address] [place] [id number] Aug, [facility] [address] [id number] [address] [place] [phone] Aug, [facility] [address] [id number] [address] [place] [id number] Aug, [facility] [address] [id number] [address] [place] [id number] Aug, [facility] [address] [id number] [address] [place] [id number] Aug, Essential hypertension I10 [facility] [address] [id number] [address] [place] [id number] Aug, Bipolar disorder, in partial remission, most recent episode depressed F31.75 and Mild cognitive impairment G31.84 [facility] [address] [id number] [address] [place] [id number] Aug, Mood disorder F39 [facility] [address] [id number] [address] [place] [id number] Aug, [facility] [address] [id number] [address] [place] [phone] Aug, Bipolar disorder, in partial remission, most recent episode depressed F31.75 and Mild cognitive impairment G31.84 [facility] [address] [id number] [address] [place] [id number] Jul, Bipolar disorder, in partial remission, most recent episode depressed F31.75 and Mild cognitive impairment G31.84 [facility] [address] [id number] [address] [place] [id number] Jul, Psychophysiological insomnia F51.04 [facility] [address] [id number] [address] [place] [id number] Jul, [facility] [address] [id number] [address] [place] [id number] Jul, [facility] [address] [id number] [address] [place] [id number] Jul, [facility] [address] [id number] [address] [place] [id number] Jul, [facility] [address] [id number] [address] [place] [id number] Jul, [facility] [address] [id number] [address] [place] [id number] Jul, [facility] [address] [id number] [address] [place] [phone] Jul, Bipolar disorder, in partial remission, most recent episode depressed F31.75 and Mild cognitive impairment G31.84 [facility] [address] [id number] [address] [place] [id number] Jul, Chronic pain G89.29 ; Diabet es E11.9 ; Essential hypertension I10 ; Ill feeling R68.89 ; Local infection of the skin and subcutaneous tissue, unspecified L08.9 and Other injury of unspecified body region, initial encounter T14.8XXA [facility] [address] [id number] [address] [place] [id number] Jun, Bipolar disorder, in partial remission, most recent episode depressed F31.75 and Mild cognitive impairment G31.84 [facility] [address] [id number] [address] [place] [id number] Jun, [place] [address] [id number] [address] [place] [id number] Jun, Bipolar disorder, in partial remission, most recent episode depressed F31.75 and Mild cognitive impairment G31.84 [place] [address] [facility] [id number] [address] [place] [id number] Jun, Psychophysiological insomnia F51.04 [place] [address] [facility] [id number] [address] [place] [id number] Jun, Psychophysiological insomnia F51.04 ; Chronic pain G89.29 ; Bipolar I disorder, most recent episode (or current) mixed, moderate F31.62 ; 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 [address] [facility] [id number] [address] [place] [id number] Jun, Bipolar disorder, in partial remission, most recent episode depressed F31.75 and Mild cognitive impairment G31.84 [place] [address] [id number] [address] [place] [id number] Jun, [place] [address] [id number] [address] [place] [id number] Jun, Bipolar disorder F31.9 [facility] [address] [id number] [address] [place] [id number] 17 May, 2019 Bipolar disorder, in partial remission, most recent episode depressed F31.75 and Mild cognitive impairment G31.84 [facility] [address] [id number] [address] [place] [id number] 05 May, 2019 [facility] [address] [facility] [id number] [address] [place] [id number] Apr, Chronic pain G89.29 and Bipo lar disorder F31.9 [facility] [address] [id number] [address] [place] [id number] Mar, Bipolar disorder F31.9 and C hronic pain G89.29 [facility] [address] [id number] [address] [place] [id number] Feb, Bipolar disorder F31.9 [facility] [address] [facility] [id number] [address] [place] [id number] Feb, Cellulitis of right upper ex tremity L03.113 and Skin abrasion T14.8XXA [facility] [address] [id number] [address] [place] [id number] Feb, Bipolar disorder, in partial remission, most recent episode depressed F31.75 and Mild cognitive impairment G31.84 [facility] [address] [facility] [id number] [address] [place] [id number] Feb, Chronic pain G89.29 [facility] [address] [facility] [id number] [address] [place] [id number] Feb, Bipolar disorder, in partial remission, most recent episode depressed F31.75 and Mild cognitive impairment G31.84 [facility] [address] [facility] [id number] [address] [place] [id number] January, Bipolar disorder, in partial remission, most recent episode depressed F31.75 and Mild cognitive impairment G31.84 [facility] [address] [facility] [id number] [address] [place] [id number] January, Chronic pain G89.29 and Bipo lar disorder F31.9 [facility] [address] [id number] [address] [place] [phone] January, Bipolar disorder, in partial remission, most recent episode depressed F31.75 and Mild cognitive impairment G31.84 [facility] [address] [id number] [address] [place] [id number] Dec, [facility] [address] [id number] [address] [place] [id number] Dec, Chronic pain G89.29 and Bipo lar disorder F31.9 [facility] [address] [id number] [address] [place] [id number] Dec, Edema of both lower extremit ies R60.0 [facility] [address] [id number] [address] [place] [id number] Dec, Bipolar disorder F31.9 [facility] [address] [id number] [address] [place] [id number] Dec, Bipolar disorder, in partial remission, most recent episode depressed F31.75 and Mild cognitive impairment G31.84 [facility] [address] [id number] [address] [place] [id number] Nov, [facility] [address] [id number] [address] [place] [id number] Nov, Chronic pain G89.29 [facility] [address] [id number] [address] [place] [id number] Nov, Bipolar disorder, in partial remission, most recent episode depressed F31.75 and Mild cognitive impairment G31.84 [facility] [address] [id number] [address] [place] [id number] Nov, Bipolar disorder F31.9 [facility] [address] [id number] [address] [place] [id number] 04 Nov, 2018 Encounter for Medicare annmercy [...] morphology N40.1 and Essential hypertension I10 [address] [id number] Oct, Chronic pain G89.[address] [id number] Oct, Diabetes E11.[address] [id number] Oct, Bipolar I disorder, most rec ent episode (or current) mixed, moderate F31.62 and Mild cognitive impairment G31.84 [place] [id number] [address] [place] [id number] Oct, Bipolar I disorder, most rec ent episode (or current) mixed, moderate F31.62 and Mild cognitive impairment G31.[address] [id number] Sep, Bipolar I disorder, most rec ent episode (or current) mixed, moderate F31.62 and Mild cognitive impairment G31.84 [place] [id number] [address] [place] [id number] Sep, [address] [id number] Sep, Diabetes E11.9 ; Hypoxia R09 .02 ; Hyperglycemia R73.9 ; Therapeutic drug monitoring Z51.81 ; BMI 50.0-59.9, adult Z68.43 and Skin cancer C44.[address] [address] Sep, Chronic pain G89.29 [facility] [address] [id number] [address] [place] [id number] Sep, Bipolar I disorder, most rec ent episode (or current) mixed, moderate F31.62 [facility] [address] [id number] [address] [place] [id number] Sep, [facility] [address] [facility] [id number] [address] [place] [id number] Sep, [facility] [address] [id number] [address] [place] [id number] Aug, Chronic pain G89.29 [facility] [address] [facility] [id number] [address] [place] [id number] Aug, Bipolar I disorder, most rec ent episode (or current) mixed, moderate F31.62 [facility] [address] [facility] [id number] [address] [place] [id number] Aug, Bipolar I disorder, most rec ent episode (or current) mixed, moderate F31.62 and Mild cognitive impairment G31.84 [facility] [address] [facility] [id number] [address] [place] [id number] Jul, [facility] [address] [facility] [id number] [address] [place] [id number] Jul, Chronic pain G89.29 [facility] [address] [facility] [id number] [address] [place] [id number] Jul, Bipolar I disorder, most rec ent episode (or current) mixed, moderate F31.62 and Mild cognitive impairment G31.84 [facility] [address] [facility] [id number] [address] [place] [id number] Jul, Bipolar I disorder, most rec ent episode (or current) mixed, moderate F31.62 and MCI (mild cognitive impairment) G31.84 [facility] [address] [facility] [id number] [address] [place] [id number] Jul, [facility] [address] [id number] [address] [place] [id number] Jul, [facility] [address] [facility] [id number] [address] [place] [id number] Jul, Bipolar I disorder, most rec ent episode (or current) mixed, moderate F31.62 [facility] [address] [facility] [id number] [address] [place] [id number] Jul, Chronic pain G89.29 [facility] [address] [id number] [address] [place] [id number] Jun, Bipolar I disorder, most rec ent episode (or current) mixed, moderate F31.62 [place] [address] [address] [facility] [id number] [address] [place] [id number] Jun, Pre-procedure lab exam Z01.[address] [facility] [address] [facility] [id number] [address] [place] [id number] Jun, [facility] [address] [id number] [place] [id number] Jun, [facility] [address] [facility] [id number] [address] [place] [id number] Jun, [facility] [address] [facility] [id number] [address] [place] [id number] Jun, Forgetfulness R68.89 ; Pre-s yncope R55 ; Localized edema R60.0 ; Other iron deficiency anemia D50.8 and BMI 50.0-59.9, adult Z68.43 [facility] [address] [id number] [address] [place] [id number] Jun, Chronic pain G89.29 [facility] [address] [facility] [id number] [address] [place] [id number] Jun, Chronic pain G89.29 [facility] [address] [facility] [id number] [address] [place] [id number] Jun, Bipolar I disorder, most rec ent episode (or current) mixed, moderate F31.62 [facility] [address] [place] [facility] [id number] [address] [place] [id number] 07 May, [address] [facility] [address] [facility] [id number] [address] [place] [id number] Apr, [facility] [address] [facility] [id number] [address] [place] [id number] Apr, Chronic pain G89.29 [place] [address] [address] [facility] [id number] [address] [place] [address] Apr, Primary osteoarthritis of ri ght knee M17.11 [place] [address] [address] [facility] [id number] [address] [place] [id number] Mar, [place] [address] [address] [place] [id number] [address] [place] [id number] Mar, BMI 50.0-59.9, adult Z68.43 and Bipolar disorder, in partial remission, most recent episode depressed F31.75 [place] [address] [address] [place] [id number] [address] [place] [address] Mar, Diabetes E11.9 ; Pure hyperc holesterolemia E78.00 ; Essential hypertension I10 ; Nausea with vomiting, unspecified R11.2 and Headache, unspecified headache type R51 [place] [address] [address] [facility] [id number] [address] [place] [id number] Mar, Bipolar I disorder, most rec ent episode (or current) mixed, moderate F31.62 [place] [address] [address] [facility] [id number] [address] [place] [id number] Mar, Bipolar I disorder, most rec ent episode (or current) mixed, moderate F31.62 [place] [address] [address] [facility] [id number] [address] [place] [address] Mar, Chronic pain G89.29 [place] [address] [address] [place] [id number] [address] [place] [id number] Mar, Bipolar I disorder, most rec ent episode (or current) mixed, moderate F31.62 [facility] [address] [id number] [address] [place] [id number] 18 Feb, 2018 Bipolar I disorder, most rec ent episode (or current) mixed, moderate F31.62 [facility] [address] [facility] [id number] [address] [place] [id number] 14 Feb, [address] [facility] [address] [facility] [id number] [address] [place] [phone] Feb, Decubitus ulcer of right josselin t, stage 3 L89.893 and BMI 50.0-59.[address], [address] [facility] [address] [facility] [id number] [address] [place] [phone] Feb, Bipolar I disorder, most rec ent episode (or current) mixed, moderate F31.62 [facility] [address] [facility] [id number] [address] [place] [phone] Feb, [facility] [address] [facility] [id number] [address] [place] [id number] January, [facility] [address] [facility] [id number] [address] [place] [address] January, Chronic pain G89.29 [facility] [address] [facility] [id number] [address] [place] [phone] January, Bipolar I disorder, most rec ent episode (or current) mixed, moderate F31.62 [facility] [address] [id number] [address] [place] [id number] January, Bipolar I disorder, most rec ent episode (or current) mixed, moderate F31.62 [facility] [address] [facility] [id number] [address] [place] [id number] Dec, Bipolar I disorder, most rec ent episode (or current) mixed, moderate F31.62 and BMI 50.0-59.9, adult Z68.43 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 ; Encounter for medication monitoring Z51.81 and BMI 50.0-59.9, adult Z68.43 [place] [address] [address] [place] [id number] [address] [place] [id number] Dec, Bipolar I disorder, most rec ent episode (or current) mixed, moderate F31.62 [place] [address] [address] [place] [id number] [address] [place] [id number] Nov, Bipolar I disorder, most rec ent episode (or current) mixed, moderate F31.62 [place] [address] [address] [place] [id number] [address] [place] [id number] Nov, Chronic pain G89.29 [place] [address] [address] [place] [id number] [address] [place] [id number] Nov, Bipolar I disorder, most rec ent episode (or current) mixed, moderate F31.62 [place] [address] [address] [place] [id number] [address] [place] [id number] Nov, Hypokalemia E87.6 [place] [address] [address] [place] [id number] [address] [place] [id number] Nov, Bipolar I disorder, most rec ent episode (or current) mixed, moderate F31.62 [place] [address] [address] [place] [id number] [address] [place] [address] Oct, Chronic pain G89.29 [place] [address] [address] [place] [id number] [address] [place] [id number] Oct, BMI 50.0-59.9, adult Z68.43 and Bipolar I disorder, most recent episode (or current) mixed, moderate F31.62 [facility] [address] [place] [id number] [address] [place] [phone] Oct, Bipolar I disorder, most rec ent episode (or current) mixed, moderate F31.62 [facility] [address] [address] Oct, [place] [address] [address] [place] [id number] [place] [phone] Oct, Hypokalemia E87.6 [place] [address] [address] [place] [id number] [place] [phone] Oct, DM neuro manif type II E11.4 9 [place] [address] [address] Oct, Bipolar I disorder, most rec ent episode (or current) mixed, moderate F31.62 [place] [address] [address] Oct, Bipolar I disorder, most rec ent episode (or current) mixed, moderate F31.62 [place] [address] [address] [place] [id number] [place] [address] Oct, Hyperkalemia E87.5 ; Falling R29.6 ; BMI 50.0-59.9, adult Z68.43 and Acute left ankle pain M25.572 [place] [address] [address] [place] [id number] [place] [phone] Oct, DM neuro manif type II E11.[address] [facility] [address] [place] [id number] [address] [place] [address] Oct, [facility] [address] [place] [id number] [place] [address] Sep, Chronic pain G89.29 [facility] [address] [place] [id number] [address] [place] [address] Sep, 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 ; Anemia of chronic illness D63.8 and BMI 50.0- 59.9, adult Z68.43 [place] [address] [address] Sep, [place] [address] [address] Sep, Bipolar I disorder, most rec ent episode (or current) mixed, moderate F31.62 [place] [address] [address] [place] [id number] [address] [place] [address] Aug, Chronic pain G89.29 [place] [address] [address] Aug, Generalized edema R60.1 [place] [address] [address] [place] [id number] [place] [address] Aug, [place] [address] [address] Aug, [facility] [address] [facility] [id number] [address] [place] [id number] Aug, Bipolar I disorder, most rec ent episode (or current) mixed, moderate F31.62 [facility] [address] [facility] [id number] [address] [place] [address] Aug, Bipolar I disorder, most rec ent episode (or current) mixed, moderate F31.62 [facility] [address] [facility] [id number] [address] [place] [address] Aug, Chronic pain G89.29 [facility] [address] [facility] [id number] [address] [place] [phone] 30 Jul, 2017 Bipolar I disorder, most rec ent episode (or current) mixed, moderate F31.62 [facility] [address] [place] [id number] [address] [place] [id number] Jul, Bipolar I disorder, most rec ent episode (or current) mixed, moderate F31.62 and BMI 60.0-69.9, adult Z68.44 [facility] [address] [facility] [id number] [address] [place] [id number] Jul, Bipolar I disorder, most rec ent episode (or current) mixed, moderate F31.62 [facility] [address] [facility] [id number] [address] [place] [id number] Jul, Chronic pain G89.29 [facility] [address] [place] [id number] [address] [place] [id number] Jul, Bipolar I disorder, most rec ent episode (or current) mixed, moderate F31.62 [facility] [address] [facility] [id number] [address] [place] [phone] Jun, Polyneuropathy associated wi th underlying disease G63 and Diabetes E11.9 [facility] [address] [facility] [id number] [address] [place] [id number] 16 Jun, 2017 Bipolar I disorder, most rec ent episode (or current) mixed, moderate F31.62 [place] [id number] [id number] [address] [place] [phone] 09 Jun, [address] [facility] [address] [id number] [address] [place] [phone] 27 May, 2017 Bipolar I disorder, most rec ent episode (or current) mixed, moderate F31.62 [facility] [address] [id number] [address] [place] [id number] May, Bipolar I disorder, most rec ent episode (or current) mixed, moderate F31.62 [facility] [address] [id number] [address] [place] [phone] 20 May, 2017 Diabetic polyneuropathy asso ciated with type [address] [facility] [address] [id number] [address] [place] [phone] 18 May, 2017 Bipolar I disorder, most rec ent episode (or current) mixed, moderate F31.62 [facility] [address] [id number] [address] [place] [id number] 13 May, 2017 Bipolar I disorder, most rec ent episode (or current) mixed, moderate F31.62 [facility] [address] [id number] [address] [place] [address] May, Chronic pain G89.29 [facility] [address] [id number] [address] [place] [address] Apr, Bipolar I disorder, most rec ent episode (or current) mixed, moderate F31.62 [facility] [address] [id number] [address] [place] [phone] Apr, [facility] [address] [facility] [id number] [address] [place] [address] Apr, Chronic pain G89.29 and DM n euro manif type II E11.49 [facility] [address] [id number] [address] [place] [address] Apr, [facility] [address] [id number] [address] [place] [id number] Apr, Bipolar I disorder, most rec ent episode (or current) mixed, moderate F31.62 [facility] [address] [facility] [id number] [address] [place] [id number] Apr, Chronic pain G89.29 [facility] [address] [facility] [id number] [address] [place] [id number] Apr, Iliotibial band syndrome, le ft M76.32 [facility] [address] [id number] [address] [place] [id number] Apr, Bipolar I disorder, most rec ent episode (or current) mixed, moderate F31.62 [facility] [address] [facility] [id number] [address] [place] [phone] Mar, Bipolar I disorder, most rec ent episode (or current) mixed, moderate F31.62 [facility] [address] [facility] [id number] [address] [place] [address] Mar, Bipolar I disorder, most rec ent episode (or current) mixed, moderate F31.62 [facility] [address] [facility] [id number] [address] [place] [phone] Mar, [facility] [address] [facility] [id number] [address] [place] [id number] Mar, Bipolar I disorder, most rec ent episode (or current) mixed, moderate F31.62 [facility] [address] [facility] [id number] [address] [place] [address] Mar, Chronic pain G89.29 [facility] [address] [id number] [address] [place] [id number] Mar, Bipolar I disorder, most rec ent episode (or current) mixed, moderate F31.62 [facility] [address] [facility] [id number] [address] [place] [phone] Mar, Bipolar I disorder, most rec ent episode (or current) mixed, moderate F31.62 [place] [address] [address] [facility] [id number] [address] [place] [address] Mar, Acute pain of left knee M25. 562 ; Left hip pain M25.552 ; Generalized edema R60.1 and Tongue swelling R22.0 [place] [address] [address] [place] [id number] [address] [place] [phone] Mar, [place] [address] [address] [place] [id number] [address] [place] [phone] Feb, Chronic pain G89.29 [place] [address] [place] [id number] [address] [place] [address] Feb, Diabetes E11.9 [place] [address] [address] [place] [id number] [place] [phone] January, Chronic pain G89.29 [place] [address] [place] [id number] [address] [place] [id number] January, [place] [address] [place] [id number] [address] [place] [id number] January, Bipolar I disorder, most rec ent episode (or current) mixed, moderate F31.62 [place] [address] [place] [id number] [address] [place] [id number] Dec, Bipolar I disorder, most rec ent episode (or current) mixed, moderate F31.62 [place] [address] [place] [id number] [address] [place] [phone] Dec, Chronic pain G89.29 [place] [address] [place] [id number] [address] [place] [id number] Dec, Bipolar I disorder, most rec ent episode (or current) mixed, moderate F31.62 [place] [address] [place] [id number] [address] [place] [address] Dec, Diabetes E11.9 ; Essential h ypertension I10 ; Chronic pain G89.29 and Morbid obesity E66.01 [place] [address] [address] [place] [id number] [address] [place] [id number] Dec, [facility] [address] [id number] [address] [place] [id number] Dec, Bipolar I disorder, most rec ent episode (or current) mixed, moderate F31.62 [facility] [address] [facility] [id number] [address] [place] [phone] Dec, Bipolar I disorder, most rec ent episode (or current) mixed, moderate F31.62 [facility] [address] [id number] [address] [place] [address] Nov, Chronic pain G89.29 [facility] [address] [facility] [id number] [address] [place] [id number] Nov, Bipolar I disorder, most rec ent episode (or current) mixed, moderate F31.62 [facility] [address] [facility] [id number] [address] [place] [phone] Nov, [facility] [address] [facility] [id number] [address] [place] [id number] Nov, Bipolar I disorder, most rec ent episode (or current) mixed, moderate F31.62 [facility] [address] [facility] [id number] [address] [place] [id number] Nov, Bipolar I disorder, most rec ent episode (or current) mixed, moderate F31.62 [facility] [address] [facility] [id number] [address] [place] [phone] Nov, [facility] [address] [facility] [id number] [address] [place] [address] Nov, [facility] [address] [facility] [id number] [address] [place] [id number] Nov, [facility] [address] [facility] [id number] [address] [place] [address] Oct, Chronic pain G89.29 [facility] [address] [facility] [id number] [address] [place] [id number] Oct, Bipolar I disorder, most rec ent episode (or current) mixed, moderate F31.62 [facility] [address] [id number] [address] [place] [id number] Oct, 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 [address] [id number] [address] [place] [phone] Oct, [facility] [address] [id number] [address] [place] [address] Oct, Diabetes E11.9 [facility] [address] [id number] [address] [place] [phone] Oct, Bipolar I disorder, most rec ent episode (or current) mixed, moderate F31.62 [facility] [address] [id number] [address] [place] [address] Sep, Chronic pain G89.29 [facility] [address] [id number] [address] [place] [address] Sep, Chronic pain G89.29 [facility] [address] [id number] [address] [place] [address] Aug, Chronic pain G89.29 [facility] [address] [id number] [address] [place] [phone] Jul, [facility] [address] [id number] [address] [place] [address] Jul, Diabetes E11.9 [facility] [address] [id number] [address] [place] [phone] Jul, Chronic pain G89.29 [facility] [address] [id number] [address] [place] [id number] Jul, Bipolar I disorder, most rec ent episode (or current) mixed, moderate F31.62 [facility] [address] [facility] [id number] [address] [place] [id number] Jun, Bipolar I disorder, most rec ent episode (or current) mixed, moderate F31.62 [facility] [address] [facility] [id number] [address] [place] [address] Jun, [facility] [address] [facility] [id number] [address] [place] [phone] Jun, Bipolar I disorder, most rec ent episode (or current) mixed, moderate F31.62 [place] [address] [facility] [id number] [address] [place] [address] May, Insomnia, unspecified type G 47.00 [place] [address] [address] [facility] [id number] [address] [place] [id number] May, Bipolar I disorder, most rec ent episode (or current) mixed, moderate F31.62 [facility] [address] [facility] [id number] [address] [place] [id number] May, [facility] [address] [facility] [id number] [address] [place] [id number] May, Bipolar I disorder, most rec ent episode (or current) mixed, moderate F31.62 [facility] [address] [facility] [id number] [address] [place] [address] May, Diabetes E11.9 and Essential hypertension I10 [facility] [address] [facility] [id number] [address] [place] [address] Apr, Chronic pain G89.29 [facility] [address] [facility] [id number] [address] [place] [id number] Apr, Bipolar I disorder, most rec ent episode (or current) mixed, moderate F31.62 [facility] [address] [facility] [id number] [address] [place] [id number] Apr, [place] [address] [facility] [id number] [address] [place] [phone] Apr, [place] [address] [place] [id number] [address] [place] [address] Mar, Chronic pain G89.29 ; Headac he, unspecified headache type R51 ; Neuropathy G62.9 ; Pain of right hip joint M25.551 and Essential hypertension I10 [place] [address] [place] [id number] [address] [place] [id number] Mar, Chronic pain G89.29 [place] [address] [place] [id number] [address] [place] [id number] Mar, Bipolar I disorder, most rec ent episode (or current) mixed, moderate F31.62 [place] [address] [place] [id number] [place] [address] Feb, Bipolar I disorder, most rec ent episode (or current) mixed, moderate F31.62 and Insomnia, unspecified type G47.00 [place] [address] [place] [id number] [address] [place] [id number] Feb, Chronic pain G89.29 [place] [address] [place] [id number] [address] [place] [id number] Feb, Bipolar I disorder, most rec ent episode (or current) mixed, moderate F31.62 [place] [address] [place] [id number] [address] [place] [id number] January, Bipolar I disorder, most rec ent episode (or current) mixed, moderate F31.62 [place] [address] [place] [id number] [address] [place] [phone] January, Chronic pain G89.29 [place] [address] [place] [id number] [address] [place] [phone] January, Chronic pain G89.29 and Esse ntial hypertension I10 [place] [address] [place] [id number] [place] [phone] January, Bipolar I disorder, most rec ent episode (or current) mixed, moderate F31.62 [facility] [address] [facility] [id number] [address] [place] [phone] Dec, [facility] [address] [facility] [id number] [address] [place] [phone] Dec, [facility] [address] [place] [id number] [place] [phone] Dec, [facility] [id number] [place] [phone] Dec, [facility] [address] [place] [id number] [place] [phone] Nov, Reactive airway disease J45. [address] [facility] [address] [place] [id number] [address] [place] [phone] Nov, [facility] [id number] [place] [phone] Nov, [facility] [address] [place] [id number] [address] [place] [address] Nov, [facility] [id number] [place] [address] Nov, [facility] [address] [id number] [address] [place] [address] Nov, Onychomycosis B35.1 ; Hammer toe M20.40 ; Pacoima or callus L84 and DM neuro manif type II E11.49 [facility] [address] [id number] [address] [place] [address] Nov, Chronic pain G89.29 ; Leukoc ytosis D72.[address] [facility] [address] [id number] [address] [place] [address] Nov, [facility] [address] [id number] [address] [place] [address] Oct, Bronchitis J40 [address] [address] [address] Oct, [address] [address] [address] Oct, [address] [address] [address] Oct, Mastoiditis, unspecified lat erality H70.90 and Type 2 diabetes mellitus with complication E11.8 [address] [address] [address] [address] Sep, [place] [address] [address] Sep, Dysuria R30.0 ; Cough R05 ; Benign prostatic hyperplasia with lower urinary tract symptoms, unspecified morphology N40.1 ; Hypokalemia E87.6 and Eustachian tube dysfunction, unspecified laterality H69.80 [place] [address] [address] Sep, Moderate mixed bipolar I dis order F31.62 [place] [address] [address] Sep, Hypokalemia E87.6 [address] [address] [address] [address] Sep, [place] [address] [address] Sep, Upper respiratory tract infe ction, unspecified type J06.9 [address] [address] [address] Aug, [place] [address] [address] Aug, Dysuria R30.0 [place] [address] [address] Aug, [facility] [address] [id number] [address] [place] [address] Jul, [facility] [address] [id number] [address] [place] [address] Jul, [facility] [address] [id number] [address] [place] [address] Jul, [facility] [address] [id number] [address] [place] [address] Jul, [facility] [address] [id number] [address] [place] [address] Jun, [facility] [address] [id number] [address] [place] [address] Jun, [facility] [address] [id number] [address] [place] [address] Jun, [facility] [address] [id number] [address] [place] [address] May, [facility] [address] [id number] [address] [place] [address] May, Bipolar I disorder, most rec ent episode (or current) mixed, moderate 296.62 [facility] [address] [id number] [address] [place] [address] May, [facility] [address] [id number] [address] [place] [address] May, Bipolar I disorder, most rec ent episode (or current) mixed, moderate 296.62 and Major depressive disorder, recurrent episode, severe, specified as with psychotic behavior 296.34 [facility] [address] [id number] [address] [place] [address] May, Bipolar I disorder, most rec ent episode (or current) mixed, moderate 296.62 [facility] [address] [id number] [address] [place] [address] May, [facility] [address] [facility] [id number] [address] [place] [address] Apr, [facility] [address] [id number] [address] [place] [address] Apr, [facility] [address] [facility] [id number] [address] [place] [address] Apr, Unspecified disorder of kidn ey and ureter 593.9 and Diabetes mellitus type [address], [address] [facility] [address] [id number] [address] [place] [address] Apr, [facility] [address] [id number] [address] [place] [address] Apr, [facility] [address] [facility] [id number] [address] [place] [address] Apr, [facility] [address] [facility] [id number] [address] [place] [address] Apr, [facility] [address] [facility] [id number] [address] [place] [address] Apr, Diabetes mellitus type II, u ncontrolled 250.02 [facility] [address] [facility] [id number] [address] [place] [address] Apr, [facility] [address] [facility] [id number] [address] [place] [address] Mar, [facility] [address] [facility] [id number] [address] [place] [address] Mar, [facility] [address] [facility] [id number] [address] [place] [address] Mar, [facility] [address] [facility] [id number] [address] [place] [address] Mar, Major depressive disorder, r ecurrent episode, severe, specified as with psychotic behavior 296.34 and Bipolar I disorder, most recent episode (or current) mixed, moderate 296.62 [facility] [address] [facility] [id number] [address] [place] [address] Mar, Diabetes 250.00 ; Anuria 788 .5 ; Nausea and vomiting 787.[address] [facility] [address] [id number] [address] [place] [address] Mar, Diabetes 250.00 [facility] [address] [address] Mar, [facility] [address] [address] Mar, Diabetes 250.00 [facility] [address] [address] Mar, [facility] [address] [address] Mar, [facility] [address] [address] Mar, [facility] [address] [address] Mar, [facility] [address] [address] Mar, Bipolar I disorder, most rec ent episode (or current) mixed, moderate 296.62 and Major depressive disorder, recurrent episode, severe, specified as with psychotic behavior 296.34 [facility] [address] [address] Mar, Magnesium deficiency 275.2 ; Hypokalemia 276.8 ; Nausea & vomiting 787.01 and Diabetes mellitus type [address], [address] [facility] [address] [id number] [place] [address] Feb, [facility] [address] [address] Feb, Bipolar I disorder, most rec ent episode (or current) mixed, moderate 296.62 [facility] [address] [id number] [address] [place] [address] Feb, Nausea and vomiting 787.01 ; Left elbow pain 719.42 ; Anuria 788.[address] [facility] [address] [id number] [address] [place] [address] Feb, [facility] [id number] [place] [address] Feb, Hypopotassemia 276.8 and Hyp okalemia 276.8 [place] [id number] [place] [address] Feb, Hypopotassemia 276.8 and Hyp okalemia 276.8 [address] [id number] [place] [address] Feb, Seborrheic keratoses 702.19 [place] [id number] [place] [address] Feb, Hypopotassemia 276.8 and Low magnesium levels 275.2 [facility] [address] [id number] [address] [place] [id number] January, [facility] [id number] [place] [address] January, [facility] [id number] [address] [place] [address] January, [facility] [address] [id number] [address] [place] [address] January, Scalp lesion 709.9 [facility] [address] [id number] [address] [place] [address] January, [facility] [address] [id number] [address] [place] [address] Dec, Tear of medial cartilage or meniscus of knee, current 836.[address] 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 [facility] [address] [id number] [address] [place] [address], [place] [address] 14 Dec, 2014 [facility] [address] [id number] [address] [place] [address], [place] [address] 13 Dec, 2014 [facility] [address] [id number] [address] [place] [address], [place] [address] Nov, [facility] [address] [id number] [address] [place] [address], [place] [address] Nov, [facility] [address] [id number] [address] [place] [address], [place] [address] Nov, [facility] [address] [id number] [address] [place] [address], [place] [address] Nov, [facility] [address] [id number] [address] [place] [address], [place] [address] Nov, [facility] [address] [id number] [address] [place] [address], [place] [address] Nov, [facility] [address] [id number] [address] [place] [address], [place] [address] Nov, [facility] [address] [id number] [address] [place] [address], [place] [address] Nov, [facility] [address] [id number] [address] [place] [address], [place] [address] Nov, [facility] [address] [id number] [address] [place] [address], [place] [address] Nov, [facility] [address] [id number] [address] [place] [address], [place] [address] Nov, [facility] [address] [id number] [address] [place] [address], [place] [address] Nov, [facility] [address] [id number] [address] [place] [address], [place] [address] Oct, 2014 [facility] [address] [id number] [address] [place] [address], [place] [address] Oct, 2014 [facility] [address] [id number] [address] [place] [address], [place] [address] Oct, 2014 [facility] [address] [id number] [address] [place] [address], [place] [address] Oct, 2014 [facility] [address] [id number] [address] [place] [address], [place] [address] Oct, 2014 [facility] [address] [id number] [address] [place] [address], [place] [address] Oct, 2014 [facility] [address] [id number] [address] [place] [address], [place] [address] Oct, 2014 [facility] [address] [id number] [address] [place] [address], [place] [address] Oct, [facility] [address] [id number] [address] [place] [address], [place] [address] Oct, [facility] [address] [id number] [address] [place] [address], [place] [address] Sep, [facility] [address] [id number] [address] [place] [address] Sep, [facility] [address] [id number] [address] [place] [address], [place] [address] Sep, [facility] [address] [id number] [address] [place] [address], [place] [address] Sep, [facility] [address] [id number] [address] [place] [address], [place] [address] Sep, [facility] [address] [id number] [address] [place] [address], [place] [address] Sep, [facility] [address] [id number] [address] [place] [address], [place] [address] Sep, [facility] [address] [id number] [address] [place] [address], [place] [address] Sep, [facility] [address] [id number] [address] [place] [address], [place] [address] Sep, [facility] [address] [id number] [address] [place] [address], [place] [address] Sep, [facility] [address] [id number] [address] [place] [address], [place] [address] Sep, [facility] [address] [id number] [address] [place] [address], [place] [address] Sep, [facility] [address] [id number] [address] [place] [address], [place] [address] Sep, [facility] [address] [id number] [address] [place] [address], [place] [address] Sep, [facility] [address] [id number] [address] [place] [address], [place] [address] Sep, [facility] [address] [id number] [address] [place] [address], [place] [address] Sep, [facility] [address] [id number] [address] [place] [address], [place] [address] Aug, [facility] [address] [id number] [address] [place] [address], [place] [address] Aug, [facility] [address] [id number] [address] [place] [address], [place] [address] Aug, [facility] [address] [id number] [address] [place] [address], [place] [address] Aug, [facility] [address] [id number] [address] [place] [address], [place] [address] Aug, [facility] [address] [id number] [facility] [place] [address] Aug, [facility] [address] [id number] [facility] [place] [place] [address] Aug, [facility] [address] [id number] [facility] [place] [place] [address] Aug, [facility] [address] [id number] [facility] [place] [place] [address] Aug, [facility] [address] [id number] [facility] [place] [place] [address] Aug, [facility] [address] [id number] [address] [place] [address], [place] [address] Aug, [facility] [address] [place] [id number] Aug, [facility] [address] [id number] [address] [place] [address], [place] [address] Aug, [facility] [address] [id number] [address] [place] [address], [place] [address] Aug, [facility] [address] [id number] [address] [place] [address], [place] [address] Aug, [facility] [address] [id number] [address] [place] [address], [place] [address] Aug, [facility] [address] [id number] [address] [place] [address], [place] [address] Aug, [facility] [address] [id number] [address] [place] [address], [place] [address] Aug, [facility] [address] [id number] [facility] [place] [place] [address] Aug, [facility] [address] [id number] [facility] [place] [place] [address] Aug, [facility] [address] [id number] [address] [place] [address], [place] [address] Aug, [facility] [address] [id number] [address] [place] [address], [place] [address] Aug, [facility] [address] [id number] [address] [place] [address], [place] [address] Aug, [facility] [address] [id number] [address] [place] [address], [place] [address] Aug, [facility] [address] [id number] [address] [place] [address], [place] [address] Aug, [facility] [address] [id number] [address] [place] [address], [place] [address] Aug, [facility] [address] [id number] [address] [place] [address], [place] [address] Aug, [facility] [address] [id number] [address] [place] [address], [place] [address] Aug, [facility] [address] [id number] [address] [place] [address], [place] [address] Aug, [facility] [address] [id number] [address] [place] [address], [place] [address] Aug, [facility] [address] [id number] [address] [place] [address], [place] [address] Jul, [facility] [address] [id number] [address] [place] [address], [place] [address] Jul, [facility] [address] [id number] [address] [place] [address], [place] [address] Jul, [facility] [address] [id number] [address] [place] [address], [place] [address] Jul, [facility] [address] [id number] [address] [place] [address], [place] [address] Jul, [facility] [address] [id number] [address] [place] [address], [place] [address] Jul, [facility] [address] [id number] [address] [place] [address], [place] [address] Jul, [facility] [address] [id number] [address] [place] [address], [place] [address] Jul, [facility] [address] [id number] [address] [place] [address], [place] [address] Jul, [facility] [address] [id number] [address] [place] [address], [place] [address] Jul, [facility] [address] [id number] [address] [place] [address], [place] [address] Jun, [facility] [address] [id number] [address] [place] [address], [place] [address] Jun, [facility] [address] [id number] [address] [place] [address], [place] [address] Jun, [facility] [address] [id number] [address] [place] [address], [place] [address] Jun, [facility] [address] [id number] [address] [place] [address], [place] [address] Jun, [facility] [address] [id number] [address] [place] [address], [place] [address] Jun, [facility] [address] [id number] [address] [place] [address], [place] [address] Jun, [facility] [address] [id number] [address] [place] [address], [place] [address] Jun, [facility] [address] [id number] [address] [place] [address], [place] [address] Jun, [facility] [address] [id number] [address] [place] [address], [place] [address] Jun, [facility] [address] [id number] [address] [place] [address], [place] [address] May, [facility] [address] [id number] [address] [place] [address], [place] [address] 29 May, 2014 [facility] [address] [id number] [facility] [place] [address] 26 Sep, 2013 [facility] [address] [id number] [facility] [place] [address] 26 Sep, 2013 [facility] [address] [id number] [facility] [place] [address] 17 Sep, 2013 [facility] [address] [id number] [address] [place] [address], [place] [address] 17 Sep, 2013 [facility] [address] [id number] [address] [place] [address], [place] [address] 15 Sep, 2013 [facility] [address] [id number] [address] [place] [address], [place] [address] 15 May, 2013 [facility] [address] [id number] [address] [place] [address], [place] [address] 15 May, 2013 [facility] [address] [id number] [address] [place] [address], [place] [address] 15 May, 2013 [facility] [address] [id number] [address] [place] [address], [place] [address] 10 May, 2013 [facility] [address] [id number] [address] [place] [address], [place] [address] 10 May, 2013 [facility] [address] [id number] [address] [place] [address], [place] [address] 09 May, 2013 [facility] [address] [id number] [address] [place] [address], [place] [address] 09 Sep, 2013 [facility] [address] [id number] [address] [place] [address], [place] [address] 04 May, 2013 [facility] [address] [id number] [address] [place] [address], [place] [address] 04 May, 2013 [facility] [address] [id number] [address] [place] [address], [place] [address] 30 Apr, 2014 [facility] [address] [id number] [address] [place] [address], [place] [address] Apr, [facility] [address] [id number] [facility] [place] [place] [address] Apr, [facility] [address] [id number] [address] [place] [address], [place] [address] Apr, [facility] [address] [id number] [address] [place] [address], [place] [address] Apr, [facility] [address] [id number] [address] [place] [address], [place] [address] Apr, [facility] [address] [id number] [address] [place] [address], [place] [address] Apr, [facility] [address] [id number] [address] [place] [address], [place] [address] Apr, [facility] [address] [id number] [address] [place] [address], [place] [address] Apr, [facility] [address] [id number] [address] [place] [address], [place] [address] Apr, [facility] [address] [id number] [address] [place] [address], [place] [address] Apr, [facility] [address] [id number] [address] [place] [address], [place] [address] Apr, [facility] [address] [id number] [address] [place] [address], [place] [address] Apr, [facility] [address] [id number] [address] [place] [address], [place] [address] Apr, [facility] [address] [id number] [address] [place] [address], [place] [address] Apr, [facility] [address] [id number] [address] [place] [address], [place] [address] Mar, [facility] [address] [id number] [address] [place] [address], [place] [address] Mar, [facility] [address] [id number] [facility] [place] [address] Mar, 2013 [facility] [address] [id number] [address] [place] [address], [place] [address] Mar, 2013 [facility] [address] [id number] [address] [place] [address], [place] [address] Mar, 2013 [facility] [address] [id number] [address] [place] [address], [place] [address] Mar, 2013 [facility] [address] [id number] [address] [place] [address], [place] [address] Mar, 2013 [facility] [address] [id number] [address] [place] [address], [place] [address] Mar, 2013 [facility] [address] [id number] [address] [place] [address], [place] [address] Mar, 2013 [facility] [address] [id number] [address] [place] [address], [place] [address] Mar, 2013 [facility] [address] [id number] [address] [place] [address], [place] [address] Mar, 2013 [facility] [facility] [address] [id number] [address] [place] [address], [place] [address] Mar, 2013 [facility] [address] [id number] [address] [place] [address], [place] [address] Mar, 2013 [facility] [address] [id number] [address] [place] [address], [place] [address] Mar, 2013 [facility] [address] [id number] [address] [place] [address], [place] [address] Mar, 2013 [facility] [address] [id number] [address] [place] [address], [place] [address] Mar, 2013 [facility] [address] [id number] [address] [place] [address], [place] [address] Mar, 2013 [facility] [address] [id number] [address] [place] [address], [place] [address] Mar, [facility] [address] [id number] [address] [place] [address], [place] [address] Feb, [facility] [address] [id number] [address] [place] [address], [place] [address] Feb, [facility] [address] [id number] [address] [place] [address], [place] [address] Feb, [facility] [address] [id number] [address] [place] [address], [place] [address] Feb, [facility] [address] [id number] [address] [place] [address], [place] [address] Feb, [facility] [address] [id number] [address] [place] [address], [place] [address] Feb, [facility] [address] [id number] [address] [place] [address], [place] [address] Feb, [facility] [address] [id number] [address] [place] [address], [place] [address] Feb, [facility] [address] [id number] [address] [place] [address], [place] [address] Feb, [facility] [address] [id number] [address] [place] [address], [place] [address] Feb, [facility] [address] [id number] [address] [place] [address], [place] [address] Feb, [facility] [address] [id number] [address] [place] [address], [place] [address] Feb, [facility] [address] [id number] [address] [place] [address], [place] [address] Feb, [facility] [address] [id number] [address] [place] [address], [place] [address] Feb, [facility] [address] [id number] [address] [place] [address], [place] [address] January, [facility] [address] [id number] [address] [place] [address], [place] [address] January, [facility] [address] [id number] [address] [place] [address], [place] [address] January, [facility] [address] [id number] [address] [place] [address], [place] [address] January, [facility] [address] [id number] [address] [place] [address], [place] [address] January, [facility] [address] [id number] [address] [place] [address], [place] [address] January, [facility] [address] [id number] [address] [place] [address], [place] [address] January, [facility] [address] [id number] [address] [place] [address], [place] [address] January, [facility] [address] [id number] [address] [place] [address], [place] [address] January, [facility] [address] [id number] [address] [place] [address], [place] [address] January, [facility] [address] [id number] [address] [place] [address], [place] [address] January, [facility] [address] [id number] [address] [place] [address], [place] [address] January, [facility] [address] [id number] [address] [place] [address], [place] [address] January, [facility] [address] [id number] [address] [place] [address], [place] [address] January, [facility] [address] [id number] [address] [place] [address], [place] [address] Dec, [facility] [address] [id number] [address] [place] [address], [place] [address] Dec, [facility] [address] [id number] [address] [place] [address], [place] [address] Dec, [facility] [address] [id number] [facility] [place] [address] Dec, [facility] [address] [id number] [facility] [place] [place] [address] Dec, [facility] [address] [id number] [facility] [place] [address] Dec, [facility] [address] [id number] [facility] [place] [place] [address] Dec, [facility] [address] [id number] [facility] [place] [place] [address] Dec, [facility] [address] [id number] [address] [place] [address], [place] [address] Dec, [facility] [address] [id number] [address] [place] [address], [place] [address] Dec, [facility] [address] [id number] [address] [place] [address], [place] [address] Nov, [facility] [address] [id number] [address] [place] [address], [place] [address] Nov, [facility] [address] [id number] [address] [place] [address], [place] [address] Nov, [facility] [address] [id number] [address] [place] [address], [place] [address] Nov, [facility] [address] [id number] [address] [place] [address], [place] [address] Nov, [facility] [address] [id number] [address] [place] [address], [place] [address] Nov, [facility] [address] [id number] [address] [place] [address], [place] [address] 05 Nov, 2013 [facility] [address] [id number] [address] [place] [address], [place] [address] 05 Nov, 2013 [facility] [address] [id number] [address] [place] [address], [place] [address] Nov, [facility] [address] [id number] [facility] [place] [place] [address] Nov, [facility] [address] [id number] [facility] [place] [address] Oct, [facility] [address] [id number] [address] [place] [address], [place] [address] Oct, [facility] [address] [id number] [address] [place] [address], [place] [address] Oct, [facility] [address] [id number] [address] [place] [address], [place] [address] Oct, [facility] [address] [id number] [address] [place] [address], [place] [address] Oct, [facility] [address] [id number] [address] [place] [address], [place] [address] Oct, [facility] [address] [id number] [address] [place] [address], [place] [address] Oct, [facility] [address] [id number] [address] [place] [address], [place] [address] Oct, [facility] [address] [id number] [address] [place] [address], [place] [address] Oct, [facility] [address] [id number] [address] [place] [address], [place] [address] Oct, [facility] [address] [id number] [address] [place] [address], [place] [address] Oct, [facility] [address] [id number] [address] [place] [address], [place] [address] Oct, [facility] [address] [id number] [address] [place] [address], [place] [address] Oct, [facility] [address] [id number] [address] [place] [address], [place] [address] Oct, [facility] [address] [id number] [address] [place] [address], [place] [address] Sep, [facility] [address] [id number] [address] [place] [address], [place] [address] Sep, [facility] [address] [id number] [address] [place] [address], [place] [address] Sep, [facility] [address] [id number] [address] [place] [address], [place] [address] Sep, [facility] [address] [id number] [address] [place] [address], [place] [address] Sep, [facility] [address] [id number] [address] [place] [address], [place] [address] Sep, [facility] [address] [id number] [address] [place] [address], [place] [address] Sep, [facility] [address] [id number] [address] [place] [address], [place] [address] Sep, [facility] [address] [id number] [address] [place] [address], [place] [address] Sep, [facility] [address] [id number] [address] [place] [address], [place] [address] Sep, [facility] [address] [id number] [address] [place] [address], [place] [address] Aug, [facility] [address] [id number] [address] [place] [address], [place] [address] Aug, [facility] [address] [id number] [address] [place] [address], [place] [address] Jul, [facility] [address] [id number] [address] [place] [address], [place] [address] Jul, [facility] [address] [id number] [address] [place] [address], [place] [address] 13 Jul, 2013 [facility] [address] [id number] [address] [place] [address], [place] [address] Jul, [facility] [address] [id number] [address] [place] [address], [place] [address] Jul, [facility] [address] [id number] [address] [place] [address], [place] [address] Jul, [facility] [address] [id number] [address] [place] [address], [place] [address] Jul, [facility] [address] [id number] [address] [place] [address], [place] [address] Jul, [facility] [address] [id number] [address] [place] [address], [place] [address] Jul, [facility] [address] [id number] [address] [place] [address], [place] [address] Jul, [facility] [address] [id number] [address] [place] [address], [place] [address] Jul, [facility] [address] [id number] [address] [place] [address], [place] [address] Jul, [facility] [address] [id number] [address] [place] [address], [place] [address] Jul, [facility] [address] [id number] [address] [place] [address], [place] [address] Jul, [facility] [address] [id number] [address] [place] [address], [place] [address] Jul, [facility] [address] [id number] [address] [place] [address] Jul, [facility] [address] [id number] [address] [place] [address], [place] [address] Jul, [facility] [address] [id number] [address] [place] [address], [place] [address] Jul, [facility] [address] [id number] [address] [place] [address], [place] [address] Jul, [facility] [address] [id number] [address] [place] [address], [place] [address] 16 Jun, 2012 [facility] [address] [id number] [address] [place] [address], [place] [address] 16 Jun, 2012 [facility] [address] [id number] [address] [place] [address], [place] [address] 16 Jun, 2012 [facility] [address] [id number] [address] [place] [address], [place] [address] 16 Jun, 2012 [facility] [address] [id number] [address] [place] [address], [place] [address] 16 Jun, 2012 [facility] [address] [id number] [address] [place] [address], [place] [address] 16 Jun, 2012 [facility] [address] [id number] [address] [place] [address], [place] [address] 10 Jun, 2012 [facility] [address] [id number] [address] [place] [address], [place] [address] 10 Jun, 2012 [facility] [address] [id number] [address] [place] [address], [place] [address] 09 Jun, 2012 [facility] [address] [id number] [address] [place] [address], [place] [address] 09 Jun, 2012 [facility] [address] [id number] [address] [place] [address], [place] [address] Jun, [facility] [address] [id number] [address] [place] [address], [place] [address] 26 Sep, 2012 [facility] [address] [id number] [address] [place] [address], [place] [address] 25 Sep, 2012 [facility] [address] [id number] [address] [place] [address], [place] [address] 19 Sep, 2012 [facility] [address] [id number] [address] [place] [address], [place] [address] 17 Sep, 2012 [facility] [address] [id number] [address] [place] [address], [place] [address] May, [facility] [address] [id number] [address] [place] [address], [place] [address] May, [facility] [address] [id number] [address] [place] [address], [place] [address] May, [facility] [address] [id number] [address] [place] [address], [place] [address] May, [facility] [address] [id number] [address] [place] [address], [place] [address] Apr, [facility] [address] [id number] [address] [place] [address], [place] [address] Apr, [facility] [address] [id number] [address] [place] [address], [place] [address] Apr, [facility] [address] [id number] [address] [place] [address], [place] [address] Apr, [facility] [address] [id number] [address] [place] [address], [place] [address] Apr, [facility] [address] [id number] [address] [place] [address], [place] [address] Mar, [facility] [address] [id number] [address] [place] [address], [place] [address] Mar, [facility] [address] [id number] [address] [place] [address], [place] [address] Mar, [facility] [address] [id number] [address] [place] [address], [place] [address] Mar, [facility] [address] [id number] [address] [place] [address], [place] [address] Mar, [facility] [address] [id number] [address] [place] [address], [place] [address] Mar, [facility] [address] [id number] [address] [place] [address], [place] [address] Mar, [facility] [address] [id number] [address] [place] [address], [place] [address] Mar, [facility] [address] [id number] [address] [place] [address], [place] [address] Feb, [facility] [address] [id number] [address] [place] [address], [place] [address] Feb, [facility] [address] [id number] [address] [place] [address], [place] [address] January, [facility] [address] [id number] [address] [place] [address], [place] [address] January, [facility] [address] [id number] [address] [place] [address], [place] [address] Dec, [facility] [address] [id number] [address] [place] [address], [place] [address] Dec, [facility] [address] [id number] [address] [place] [address], [place] [address] Nov, [facility] [address] [id number] [address] [place] [address], [place] [address] Nov, [facility] [address] [id number] [address] [place] [address], [place] [address] Nov, [facility] [address] [id number] [address] [place] [address], [place] [address] Nov, [facility] [address] [id number] [address] [place] [address], [place] [address] Oct, [facility] [address] [id number] [address] [place] [address], [place] [address] Oct, [facility] [address] [id number] [address] [place] [address], [place] [address] Oct, [facility] [address] [id number] [address] [place] [address], [place] [address] Oct, [facility] [address] [id number] [address] [place] [address], [place] [address] Oct, [facility] [address] [id number] [address] [place] [address], [place] [address] 14 Oct, 2012 [facility] [address] [id number] [address] [place] [address], [place] [address] 08 Oct, 2012 [facility] [address] [id number] [address] [place] [address], [place] [address] 07 Oct, 2012 [facility] [address] [id number] [address] [place] [address], [place] [address] 03 Oct, 2012 [facility] [address] [id number] [address] [place] [address], [place] [address] 30 Sep, 2012 [facility] [address] [id number] [address] [place] [address], [place] [address] Sep, [facility] [address] [id number] [address] [place] [address], [place] [address] Sep, [facility] [address] [id number] [address] [place] [address], [place] [address] Sep, [facility] [address] [id number] [address] [place] [address], [place] [address] Sep, [facility] [address] [id number] [address] [place] [address], [place] [address] Sep, [facility] [address] [id number] [address] [place] [address], [place] [address] Sep, [facility] [address] [id number] [address] [place] [address], [place] [address] Sep, [facility] [address] [id number] [address] [place] [address], [place] [address] Aug, [facility] [address] [id number] [address] [place] [address], [place] [address] Aug, [facility] [address] [id number] [address] [place] [address], [place] [address] Aug, [facility] [address] [id number] [address] [place] [address], [place] [address] Aug, [facility] [address] [id number] [address] [place] [address], [place] [address] Aug, [facility] [address] [id number] [address] [place] [address], [place] [address] Aug, [facility] [address] [id number] [address] [place] [address], [place] [address] Aug, [facility] [address] [id number] [address] [place] [address], [place] [address] Aug, [facility] [address] [id number] [address] [place] [address], [place] [address] Jul, [facility] [address] [id number] [address] [place] [address], [place] [address] Jul, [facility] [address] [id number] [address] [place] [address], [place] [address] Jul, [facility] [address] [id number] [address] [place] [address], [place] [address] Jul, [facility] [address] [id number] [address] [place] [address], [place] [address] Jul, [facility] [address] [id number] [address] [place] [address], [place] [address] Jul, [facility] [address] [id number] [address] [place] [address], [place] [address] Jun, [facility] [address] [id number] [address] [place] [address], [place] [address] Jun, [facility] [address] [id number] [address] [place] [address], [place] [address] Jun, [facility] [address] [id number] [address] [place] [address], [place] [address] Jun, [facility] [address] [id number] [address] [place] [address], [place] [address] Jun, [facility] [address] [id number] [address] [place] [address], [place] [address] 19 Jun, 2012 [facility] [address] [id number] [address] [place] [address], [place] [address] 19 Jun, 2012 [facility] [address] [id number] [address] [place] [address], [place] [address] 10 Jun, 2012 [facility] [address] [id number] [address] [place] [address], [place] [address] 10 Jun, 2012 [facility] [address] [id number] [address] [place] [address], [place] [address] 26 May, 2012 [facility] [address] [id number] [address] [place] [address], [place] [address] 24 May, 2012 [facility] [address] [id number] [address] [place] [address], [place] [address] 18 May, 2012 [facility] [address] [id number] [address] [place] [address], [place] [address] 30 Apr, 2012 [facility] [address] [id number] [address] [place] [address], [place] [address] Apr, [facility] [address] [id number] [address] [place] [address], [place] [address] Apr, [facility] [address] [id number] [address] [place] [address], [place] [address] Apr, [facility] [address] [id number] [address] [place] [address], [place] [address] Apr, [facility] [address] [id number] [address] [place] [address], [place] [address] Apr, [facility] [address] [id number] [address] [place] [address], [place] [address] Mar, [facility] [address] [id number] [address] [place] [address], [place] [address] Mar, [facility] [address] [id number] [address] [place] [address], [place] [address] Mar, [facility] [address] [id number] [address] [place] [address], [place] [address] Mar, [facility] [address] [id number] [address] [place] [address], [place] [address] Feb, [facility] [address] [id number] [address] [place] [address], [place] [address] Feb, [facility] [address] [id number] [address] [place] [address], [place] [address] Feb, [facility] [address] [id number] [address] [place] [address], [place] [address] Feb, [facility] [address] [id number] [address] [place] [address], [place] [address] Feb, [facility] [address] [id number] [address] [place] [address], [place] [address] January, [facility] [address] [id number] [address] [place] [address], [place] [address] January, [facility] [address] [id number] [address] [place] [address], [place] [address] January, [facility] [address] [id number] [address] [place] [address], [place] [address] January, [facility] [facility] [address] [id number] [address] [place] [address], [place] [address] January, [facility] [address] [id number] [address] [place] [address], [place] [address] January, [facility] [address] [id number] [address] [place] [address], [place] [address] Dec, [facility] [address] [id number] [address] [place] [address], [place] [address] Dec, [facility] [address] [id number] [address] [place] [address], [place] [address] Dec, [facility] [address] [id number] [address] [place] [address], [place] [address] 09 Dec, 2011 [facility] [address] [id number] [address] [place] [address], [place] [address] 06 Dec, 2011 [facility] [address] [id number] [address] [place] [address], [place] [address] 27 Nov, 2011 [facility] [address] [id number] [address] [place] [address], [place] [address] 14 Nov, 2011 [facility] [address] [id number] [address] [place] [address], [place] [address] 12 Nov, 2011 [facility] [address] [id number] [address] [place] [address], [place] [address] 07 Nov, 2011 [facility] [address] [id number] [address] [place] [address], [place] [address] 29 Oct, 2011 [facility] [address] [id number] [address] [place] [address], [place] [address] 28 Oct, 2011 [facility] [address] [id number] [address] [place] [address], [place] [address] 24 Oct, 2011 [facility] [address] [id number] [address] [place] [address], [place] [address] 13 Oct, 2011 [facility] [address] [id number] [address] [place] [address], [place] [address] 08 Oct, 2011 [facility] [address] [id number] [address] [place] [address], [place] [address] Sep, [facility] [address] [id number] [address] [place] [address], [place] [address] 30 Sep, 2011 [facility] [address] [id number] [address] [place] [address], [place] [address] Sep, [facility] [address] [id number] [address] [place] [address], [place] [address] Sep, [facility] [address] [id number] [address] [place] [address], [place] [address] Sep, [facility] [address] [id number] [address] [place] [address], [place] [address] Sep, [facility] [address] [id number] [address] [place] [address], [place] [address] Aug, [facility] [address] [id number] [address] [place] [address], [place] [address] Aug, [facility] [address] [id number] [address] [place] [address], [place] [address] Aug, [facility] [address] [id number] [address] [place] [address], [place] [address] Jul, [facility] [address] [id number] [address] [place] [address], [place] [address] Jul, [facility] [address] [id number] [address] [place] [address], [place] [address] Jul, [facility] [address] [id number] [address] [place] [address], [place] [address] Jul, [facility] [address] [id number] [address] [place] [address], [place] [address] Jun, [facility] [address] [id number] [address] [place] [address], [place] [address] Jun, [facility] [address] [id number] [address] [place] [address], [place] [address] Jun, [facility] [address] [id number] [address] [place] [address] Jun, [facility] [address] [id number] [address] [place] [address], [place] [address] Jun, [facility] [address] [id number] [address] [place] [address], [place] [address] Jun, [facility] [address] [id number] [address] [place] [address], [place] [address] Mar, [facility] [address] [id number] [address] [place] [address], [place] [address] 18 Dec, 2010 [facility] [address] [id number] [address] [place] [address], [place] [address] 11 Dec, 2010 [facility] [address] [id number] [address] [place] [address], [place] [address] 18 Nov, 2010 [facility] [address] [id number] [address] [place] [address], [place] [address] 16 Nov, 2010 [facility] [address] [id number] [address] [place] [address], [place] [address] 10 Sep, 2010 [facility] [address] [id number] [address] [place] [address], [place] [address] 31 Aug, 2010 [facility] [address] [id number] [address] [place] [address], [place] [address] 29 Aug, 2010 [facility] [address] [id number] [address] [place] [address], [place] [address] 29 Aug, 2010 [facility] [address] [id number] [address] [place] [address], [place] [address] 29 Aug, 2010 [facility] [address] [id number] [address] [place] [address], [place] [address] 27 Aug, 2010 [facility] [address] [id number] [address] [place] [address], [place] [address] 14 Aug, 2010 [facility] [address] [id number] [address] [place] [address], [place] [address] 08 Aug, 2010 [facility] [address] [id number] [address] [place] [address], [place] [address] 08 Aug, 2010 [facility] [address] [id number] [address] [place] [address], [place] [address] 07 Aug, 2010 [facility] [address] [id number] [address] [place] [address], [place] [address] 06 Aug, 2010 [facility] [address] [id number] [address] [place] [address], [place] [address] 06 Aug, 2010 [facility] [address] [id number] [address] [place] [address], [place] [address] Aug, [facility] [address] [id number] [address] [place] [address], [place] [address] Jul, [facility] [address] [id number] [address] [place] [address], [place] [address] Jul, [facility] [address] [id number] [address] [place] [address], [place] [address] Jul, [facility] [address] [id number] [address] [place] [address], [place] [address] Jul, [facility] [address] [id number] [address] [place] [address], [place] [address] Jul, [facility] [address] [id number] [address] [place] [address], [place] [address] Jul, [facility] [address] [id number] [address] [place] [address], [place] [address] Jun, [facility] [address] [id number] [address] [place] [address], [place] [address] Jun, [facility] [address] [id number] [address] [place] [address], [place] [address] Jun, [facility] [address] [id number] [address] [place] [address], [place] [address] Jun, [facility] [address] [id number] [address] [place] [address], [place] [address] Apr, [facility] [address] [id number] [address] [place] [address], [place] [address] Mar, [facility] [address] [id number] [address] [place] [address], [place] [address] Feb, [facility] [address] [id number] [address] [place] [address], [place] [address] January, [facility] [address] [id number] [address] [place] [address], [place] [address] 15 Dec, 2009 [facility] [address] [id number] [address] [place] [address], [place] [address] Nov, [facility] [address] [id number] [address] [place] [address] Aug, [facility] [address] [id number] [address] [place] [id number] Aug, [facility] [address] [id number] [address] [place] [address] Aug, [facility] [address] [id number] [address] [place] [address], [place] [address] Jul, [facility] [address] [id number] [address] [place] [address] Jul, [facility] [address] [id number] [address] [place] [address] Jul, [facility] [address] [id number] [address] [place] [id number] 30 Jun, 2009 [facility] [address] [id number] [address] [place] [id number] 29 Jun, 2009 [facility] [address] [id number] [address] [place] [address] Jun, [facility] [address] [id number] [address] [place] [address] Jun, [facility] [address] [id number] [address] [place] [id number] Jun, [facility] [address] [id number] [address] [place] [address] Jun, [facility] [address] [id number] [address] [place] [phone] Apr, [facility] [address] [id number] [address] [place] [address] Apr, [facility] [address] [id number] [address] [place] [address] Feb, [facility] [address] [facility] [id number] [address] [place] [address] January, [facility] [address] [facility] [id number] [address] [place] [address] Dec, IMMUNIZATIONS No Known Immunizations SOCIAL HISTORY [...] ([place]) 2009 Surgical History colonoscopy 2009 ([facility]), 2013 ([place] ) Surgical History heart cath: CAD w/ [...] History inability to urinate 09/16/15 Hospitalization History [facility] e[facility]ly 1999's Hospitalization History hyperkalemia 10/2017 Hospitalization History fluid in lung Hospitalization History stroke, 02/2020
--- OUTSIDE RECORDS SUMMARY | 2020-04-11 11:05 | XMS REPORT ---
Author Author Michele WASHBURN [facility] Address [address] [place] [address] Care Team Providers Care Hvac Engineer Name Role Phone NOEMI WASHBURN Unavailable PROBLEMS Type Condition ICD9-CM Code WIY45-BK Code Onset Dates Condition S tatus SNOMED Code Problem Insomnia, unspecified type G47.00 Act sharon 000429811 Problem Morbid obesity E66.01 Active 56075 6002 Problem Anxiety F41.9 Active 34680542 Problem Diabetic polyneuropathy associated with type 2 d iabetes mellitus E11.42 Active 02143311 Problem Essential hypertension I10 Active 18409024 Problem Bilateral primary osteoarthritis of knee M17.0 Active 255324473 Problem Polyneuropathy associated with underlying disease G63 Active 974516709 Problem Psychophysiological insomnia F51.04 A ctive 142196824 Problem Leukocytosis D72.829 Active 1321931 06 Problem Chronic diastolic (congestive) heart failure I50.3 2 Active 252508494 Problem Diabetes E11.9 Active 42380146 Problem Bipolar I disorder, most recent episode (or curr ent) mixed, moderate F31.62 Active 00091836 Problem Reactive airway disease J45.909 Active 039658217249 Problem Bipolar disorder, in partial remission, most rec ent episode depressed F31.75 Active 30210299 Problem Falling R29.6 Active 498025012 Problem Primary osteoarthritis of right knee M17.11 Active [id number] Problem Cough R05 Active 24867058 Problem Pure hypercholesterolemia E78.00 Acti ve 591975796 Problem Dysuria R30.0 Active 06113104 Problem Mild cognitive impairment G31.84 Acti ve 142237666 Problem Benign prostatic hyperplasia with lower urinary tract symptoms, unspecified morphology N40.1 Active 61273 6007 Problem Other iron deficiency anemia D50.8 A ctive 42545044 Problem Eustachian tube dysfunction, unspecified laterality H69.80 Active 50883813 Problem Bipolar disorder F31.9 Active 137 57016 Problem Chronic pain G89.29 Active 1641982 1 Problem Skin cancer C44.90 Active 50700803 7 Problem DM neuro manif type II E11.49 Active 38874044 Problem Type 2 diabetes mellitus with diabetic neuropathy, uns pecified E11.40 Active 87024773 Problem shelter (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 Z79.4 Active 037949223 Problem Mood disorder F39 Active 028762 05 Problem Agitation R45.1 Active 031417996 Problem Anemia of chronic illness D63.8 Acti ve 504099899 Problem Lymphocytosis D72.820 Active 707712 09 Problem Dysphagia, unspecified type R13.10 Ac tive 83680883 Problem Retinal edema H35.81 Active 143529 6 Problem Chronic lymphocytic leukemia C91.10 A ctive 73825712 Problem Pressure ulcer of other site, stage 3 L89.893 Active 630048931 Problem 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 Active 283653091 Problem Eye exam abnormal R93.8 Active 16 0876621 Problem Bipolar I disorder, most recent episode depressed, moderat e F31.32 Active 473370458 Problem Gastroesophageal reflux disease without esophagitis K21.9 Active 970272999 Problem Hypokalemia E87.6 Active 33512931 Problem Other secondary acute gout, 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 0 Active 332913711 Problem PVD (peripheral vascular disease) I73.9 Active 811158083 ALLERGIES No Information ENCOUNTERS Encounter Location Date Diagnosis [place] [address] [facility] [id number] [address] [place] [address] Apr, [place] [address] [facility] [id number] [address] [place] [phone] Mar, [facility] [address] [facility] [id number] [address] [place] [address] Mar, [facility] [address] [facility] [id number] [address] [place] [address] Mar, [facility] [address] [facility] [id number] [address] [place] [address] Mar, Mood disorder F39 [facility] [address] [facility] [id number] [address] [place] [address] Mar, Bipolar I disorder, most rec ent episode depressed, moderate F31.32 ; Anxiety F41.9 and Mild cognitive impairment G31.84 [place] [address] [facility] [id number] [address] [place], [place] [address] 26 Feb, 2020 Dysphagia, unspecified type R13.10 [place] [address] [facility] [id number] [address] [place] [id number] 25 Feb, 2020 Bipolar I disorder, most rec ent episode depressed, moderate F31.32 ; Anxiety F41.9 and Mild cognitive impairment G31.84 [place] [address] [facility] [id number] [address] [place] [id number] 24 Feb, 2020 [place] [address] [facility] [id number] [address] [place] [address] 24 Feb, 2020 Gastroesophageal reflux dise ase without esophagitis K21.9 [place] [address] [facility] [id number] [address] [place] [address] Feb, [place] [address] [facility] [id number] [address] [place] [address] 18 Feb, 2020 Bipolar I disorder, most rec ent episode depressed, moderate F31.32 ; Anxiety F41.9 and Mild cognitive impairment G31.84 [place] [address] [facility] [id number] [address] [place] [address] 17 Feb, 2020 Chronic pain G89.[address] [id number] [address] [place] [address] Feb, Agitation R45.1 [place] [address] [facility] [id number] [address] [place] [address] 17 Feb, 2020 PVD (peripheral vascular dis ease) I73.9 ; Status post CVA Z86.73 ; Status post carotid endarterectomy Z98.890 ; Vertigo R42 ; Mild cognitive impairment G31.84 ; Type 2 diabetes mellitus with diabetic neuropathy, unspecified E11.40 and Essential hypertension I10 [address] [id number] [address] [place] [address] Feb, [facility] [address] [id number] [address] [place] [address] Feb, [facility] [address] [id number] [address] [place] [address] January, [facility] [address] [id number] [address] [place] [address] January, Chronic pain G89.29 [facility] [address] [id number] [address] [place] [address] Dec, [facility] [address] [id number] [address] [place] [address] Dec, Chronic pain G89.29 [facility] [address] [id number] [address] [place] [address] Dec, [facility] [address] [id number] [address] [place] [address] Dec, [facility] [address] [id number] [address] [place] [address] Dec, Gastroesophageal reflux dise ase without esophagitis K21.9 and Pure hypercholesterolemia E78.00 [facility] [address] [id number] [address] [place] [address] Dec, Mood disorder F39 [facility] [address] [id number] [address] [place] [phone] Nov, Other secondary acute gout, 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 [facility] [address] [id number] [address] [place] [address] Nov, Gastroesophageal reflux dise ase without esophagitis K21.9 [facility] [address] [id number] [address] [place] [address] Nov, Chronic pain G89.29 [facility] [address] [id number] [address] [place] [address] Nov, Bipolar I disorder, most rec ent episode depressed, moderate F31.32 ; Anxiety F41.9 and Mild cognitive impairment G31.84 [facility] [address] [id number] [address] [place] [address] Nov, [facility] [address] [id number] [address] [place] [address] Nov, Syncope, unspecified syncope type R55 [facility] [address] [id number] [address] [place] [address] Nov, Mood disorder F39 [facility] [address] [id number] [address] [place] [address] Oct, Chronic pain G89.29 [facility] [address] [id number] [address] [place] [address] Oct, [facility] [address] [id number] [address] [place] [address] Oct, Mood disorder F39 [facility] [address] [id number] [address] [place] [address] Oct, [facility] [address] [id number] [address] [place] [phone] Oct, Bipolar disorder, in partial remission, most recent episode depressed F31.75 and Mild cognitive impairment G31.84 [facility] [address] [id number] [address] [place] [address] Oct, Mood disorder F39 [facility] [address] [id number] [address] [place] [address] Sep, [facility] [address] [id number] [address] [place] [address] Sep, Mood disorder F39 [facility] [address] [facility] [id number] [address] [place] [address] Sep, Bipolar disorder, in partial remission, most recent episode depressed F31.75 and Mild cognitive impairment G31.84 [facility] [address] [id number] [address] [place] [address] Sep, Mood disorder F39 [facility] [address] [id number] [address] [place] [address] Sep, [facility] [address] [id number] [address] [place] [address] Sep, Mood disorder F39 [facility] [address] [id number] [address] [place] [phone] Sep, [facility] [address] [id number] [address] [place] [address] Aug, Mood disorder F39 [facility] [address] [id number] [address] [place] [address] Aug, [facility] [address] [id number] [address] [place] [address] Aug, [facility] [address] [id number] [address] [place] [address] Aug, [facility] [address] [id number] [address] [place] [address] Aug, [facility] [address] [id number] [address] [place] [address] Aug, [facility] [address] [id number] [address] [place] [address] Aug, [facility] [address] [id number] [address] [place] [address] Aug, [facility] [address] [id number] [address] [place] [address] Aug, Essential hypertension I10 [facility] [address] [id number] [address] [place] [phone] Aug, Bipolar disorder, in partial remission, most recent episode depressed F31.75 and Mild cognitive impairment G31.84 [facility] [address] [id number] [address] [place] [address] Aug, Mood disorder F39 [facility] [address] [id number] [address] [place] [address] Aug, [facility] [address] [id number] [address] [place] [address] Aug, Bipolar disorder, in partial remission, most recent episode depressed F31.75 and Mild cognitive impairment G31.84 [facility] [address] [id number] [address] [place] [address] Jul, Bipolar disorder, in partial remission, most recent episode depressed F31.75 and Mild cognitive impairment G31.84 [facility] [address] [id number] [address] [place] [address] Jul, Psychophysiological insomnia F51.04 [facility] [address] [id number] [address] [place] [phone] Jul, [facility] [address] [id number] [address] [place] [phone] Jul, [facility] [address] [id number] [address] [place] [address] Jul, [facility] [address] [id number] [address] [place] [address] Jul, [facility] [address] [id number] [address] [place] [address] Jul, [facility] [address] [id number] [address] [place] [address] Jul, [facility] [address] [id number] [address] [place] [address] Jul, Bipolar disorder, in partial remission, most recent episode depressed F31.75 and Mild cognitive impairment G31.84 [facility] [address] [id number] [address] [place] [address] Jul, Chronic pain G89.29 ; Diabet es E11.9 ; Essential hypertension I10 ; Ill feeling R68.89 ; Local infection of the skin and subcutaneous tissue, unspecified L08.9 and Other injury of unspecified body region, initial encounter T14.8XXA [facility] [address] [id number] [address] [place] [address] Jun, Bipolar disorder, in partial remission, most recent episode depressed F31.75 and Mild cognitive impairment G31.84 [facility] [address] [id number] [address] [place] [address] Jun, [place] [address] [id number] [address] [place] [address] Jun, Bipolar disorder, in partial remission, most recent episode depressed F31.75 and Mild cognitive impairment G31.84 [place] [address] [id number] [address] [place] [address] Jun, Psychophysiological insomnia F51.04 [place] [address] [id number] [address] [place] [address] Jun, Psychophysiological insomnia F51.04 ; Chronic pain G89.29 ; Bipolar I disorder, most recent episode (or current) mixed, moderate F31.62 ; 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 ; Polyneuropathy associated with underlying disease G63 ; Type 2 diabetes mellitus with diabetic neuropathy, unspecified E11.40 ; shelter (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 Z79.4 and Hyperglycemia R73.9 [place] [address] [id number] [address] [place] [address] Jun, Bipolar disorder, in partial remission, most recent episode depressed F31.75 and Mild cognitive impairment G31.84 [facility] [address] [id number] [address] [place] [address] Jun, [place] [address] [id number] [address] [place] [address] Jun, Bipolar disorder F31.9 [facility] [address] [id number] [address] [place] [address] May, Bipolar disorder, in partial remission, most recent episode depressed F31.75 and Mild cognitive impairment G31.84 [facility] [address] [id number] [address] [place] [phone] 05 May, 2019 [facility] [address] [id number] [address] [place] [address] Apr, Chronic pain G89.29 and Bipo lar disorder F31.9 [facility] [address] [id number] [address] [place] [phone] Mar, Bipolar disorder F31.9 and C hronic pain G89.29 [facility] [address] [id number] [address] [place] [address] Feb, Bipolar disorder F31.9 [facility] [address] [id number] [address] [place] [address] Feb, Cellulitis of right upper ex tremity L03.113 and Skin abrasion T14.8XXA [facility] [address] [id number] [address] [place] [address] 17 Feb, 2019 Bipolar disorder, in partial remission, most recent episode depressed F31.75 and Mild cognitive impairment G31.84 [facility] [address] [id number] [address] [place] [address] Feb, Chronic pain G89.29 [facility] [address] [id number] [address] [place] [address] Feb, Bipolar disorder, in partial remission, most recent episode depressed F31.75 and Mild cognitive impairment G31.84 [facility] [address] [id number] [address] [place] [address] January, Bipolar disorder, in partial remission, most recent episode depressed F31.75 and Mild cognitive impairment G31.84 [facility] [address] [id number] [address] [place] [address] January, Chronic pain G89.29 and Bipo lar disorder F31.9 [facility] [address] [id number] [address] [place] [address] January, Bipolar disorder, in partial remission, most recent episode depressed F31.75 and Mild cognitive impairment G31.84 [facility] [address] [id number] [address] [place] [address] Dec, [facility] [address] [id number] [address] [place] [address] Dec, Chronic pain G89.29 and Bipo lar disorder F31.9 [facility] [address] [id number] [address] [place] [address] Dec, Edema of both lower extremit ies R60.0 [facility] [address] [id number] [address] [place] [address] Dec, Bipolar disorder F31.9 [facility] [address] [facility] [id number] [address] [place] [address] Dec, Bipolar disorder, in partial remission, most recent episode depressed F31.75 and Mild cognitive impairment G31.84 [facility] [address] [id number] [address] [place] [address] Nov, [facility] [address] [id number] [address] [place] [address] Nov, Chronic pain G89.29 [facility] [address] [id number] [address] [place] [phone] Nov, Bipolar disorder, in partial remission, most recent episode depressed F31.75 and Mild cognitive impairment G31.84 [facility] [address] [id number] [address] [place] [address] Nov, Bipolar disorder F31.9 [facility] [address] [id number] [address] [place] [address] 04 Nov, 2018 Encounter for Medicare annua [...] unspecified morphology N40.1 and Essential hypertension I10 [address] [address] Oct, Chronic pain G89.[address] [address] Oct, Diabetes E11.[address] [address] Oct, Bipolar I disorder, most rec ent episode (or current) mixed, moderate F31.62 and Mild cognitive impairment G31.[address] [address] Oct, Bipolar I disorder, most rec ent episode (or current) mixed, moderate F31.62 and Mild cognitive impairment G31.[address] [address] Sep, Bipolar I disorder, most rec ent episode (or current) mixed, moderate F31.62 and Mild cognitive impairment G31.[address] [address] Sep, [address] [address] Sep, Diabetes E11.9 ; Hypoxia R09 .02 ; Hyperglycemia R73.9 ; Therapeutic drug monitoring Z51.81 ; BMI 50.0-59.9, adult Z68.43 and Skin cancer C44.[address] [address] Sep, Chronic pain G89.[address] [address] Sep, Bipolar I disorder, most rec ent episode (or current) mixed, moderate F31.62 [facility] [address] [id number] [address] [place] [address] Sep, [facility] [address] [id number] [address] [place] [address] Sep, [facility] [address] [id number] [address] [place] [address] Aug, Chronic pain G89.29 [facility] [address] [id number] [address] [place] [address] Aug, Bipolar I disorder, most rec ent episode (or current) mixed, moderate F31.62 [facility] [address] [id number] [address] [place] [address] Aug, Bipolar I disorder, most rec ent episode (or current) mixed, moderate F31.62 and Mild cognitive impairment G31.84 [facility] [address] [id number] [address] [place] [address] Jul, [facility] [address] [id number] [address] [place] [address] Jul, Chronic pain G89.29 [facility] [address] [id number] [address] [place] [address] Jul, Bipolar I disorder, most rec ent episode (or current) mixed, moderate F31.62 and Mild cognitive impairment G31.84 [facility] [address] [id number] [address] [place] [address] Jul, Bipolar I disorder, most rec ent episode (or current) mixed, moderate F31.62 and MCI (mild cognitive impairment) G31.84 [facility] [address] [id number] [address] [place] [address] Jul, [facility] [address] [facility] [id number] [address] [place] [address] Jul, [facility] [address] [facility] [id number] [address] [place] [address] Jul, Bipolar I disorder, most rec ent episode (or current) mixed, moderate F31.62 [facility] [address] [facility] [id number] [address] [place] [address] Jul, Chronic pain G89.29 [facility] [address] [facility] [id number] [address] [place] [address] Jun, Bipolar I disorder, most rec ent episode (or current) mixed, moderate F31.62 [place] [address] [facility] [id number] [address] [place] [address] Jun, Pre-procedure lab exam Z01.8 12 [facility] [address] [place] [id number] [address] [place] [address] Jun, [facility] [address] [place] [id number] [place] [id number] Jun, [facility] [address] [place] [id number] [address] [place] [address] Jun, [facility] [address] [place] [id number] [address] [place] [address] Jun, Forgetfulness R68.89 ; Pre-s yncope R55 ; Localized edema R60.0 ; Other iron deficiency anemia D50.8 and BMI 50.0-59.9, adult Z68.43 [facility] [address] [facility] [id number] [address] [place] [address] Jun, Chronic pain G89.29 [facility] [address] [facility] [id number] [address] [place] [address] Jun, Chronic pain G89.29 [facility] [address] [place] [id number] [address] [place] [address] Jun, Bipolar I disorder, most rec ent episode (or current) mixed, moderate F31.62 [facility] [address] [place] [id number] [address] [place] [address] May, Chronic pain G89.29 [facility] [address] [facility] [id number] [address] [place] [address] Apr, [facility] [address] [facility] [id number] [address] [place] [address] Apr, Chronic pain G89.29 [facility] [address] [facility] [id number] [address] [place] [address] Apr, Primary osteoarthritis of ri ght knee M17.11 [place] [address] [facility] [id number] [address] [place] [address] Mar, [place] [address] [place] [id number] [place] [address] Mar, BMI 50.0-59.9, adult Z68.43 and Bipolar disorder, in partial remission, most recent episode depressed F31.75 [place] [address] [place] [id number] [address] [place] [address] Mar, Diabetes E11.9 ; Pure hyperc holesterolemia E78.00 ; Essential hypertension I10 ; Nausea with vomiting, unspecified R11.2 and Headache, unspecified headache type R51 [place] [address] [place] [id number] [address] [place] [address] Mar, Bipolar I disorder, most rec ent episode (or current) mixed, moderate F31.62 [place] [address] [place] [id number] [address] [place] [address] Mar, Bipolar I disorder, most rec ent episode (or current) mixed, moderate F31.62 [place] [address] [facility] [id number] [address] [place] [address] Mar, Chronic pain G89.29 [place] [address] [place] [id number] [address] [place] [address] Mar, Bipolar I disorder, most rec ent episode (or current) mixed, moderate F31.62 [place] [address] [place] [id number] [address] [place] [id number] 18 Feb, 2018 Bipolar I disorder, most rec ent episode (or current) mixed, moderate F31.62 [facility] [address] [facility] [id number] [address] [place] [phone] 14 Feb, 2018 Chronic pain G89.29 [facility] [address] [facility] [id number] [address] [place] [id number] 06 Feb, 2018 Decubitus ulcer of right josselin t, stage 3 L89.893 and BMI 50.0-59.9, adult Z68.43 [facility] [address] [facility] [id number] [address] [place] [address] Feb, Bipolar I disorder, most rec ent episode (or current) mixed, moderate F31.62 [place] [address] [facility] [id number] [address] [place] [address] Feb, [place] [address] [facility] [id number] [address] [place] [address] January, [facility] [address] [facility] [id number] [address] [place] [address] January, Chronic pain G89.29 [facility] [address] [facility] [id number] [address] [place] [address] January, Bipolar I disorder, most rec ent episode (or current) mixed, moderate F31.62 [facility] [address] [facility] [id number] [address] [place] [address] January, Bipolar I disorder, most rec ent episode (or current) mixed, moderate F31.62 [place] [address] [facility] [id number] [address] [place] [address] Dec, Bipolar I disorder, most rec ent episode (or current) mixed, moderate F31.62 and BMI 50.0-59.9, adult Z68.43 [facility] [address] [facility] [id number] [address] [place] [address] Dec, Bipolar I disorder, most rec ent episode (or current) mixed, moderate F31.62 [facility] [address] [place] [id number] [address] [place] [address] Dec, Chronic pain G89.29 [facility] [address] [place] [id number] [address] [place] [address] Dec, DM neuro manif type II E11.4 9 ; Right flank pain R10.9 ; shelter current use of opiate analgesic Z79.891 ; Encounter for medication monitoring Z51.81 and BMI 50.0-59.9, adult Z68.43 [place] [address] [place] [id number] [address] [place] [address] Dec, Bipolar I disorder, most rec ent episode (or current) mixed, moderate F31.62 [place] [address] [place] [id number] [address] [place] [address] Nov, Bipolar I disorder, most rec ent episode (or current) mixed, moderate F31.62 [place] [address] [place] [id number] [address] [place] [address] Nov, Chronic pain G89.29 [place] [address] [place] [id number] [address] [place] [address] Nov, Bipolar I disorder, most rec ent episode (or current) mixed, moderate F31.62 [place] [address] [place] [id number] [address] [place] [address] Nov, Hypokalemia E87.6 [place] [address] [place] [id number] [address] [place] [address] Nov, Bipolar I disorder, most rec ent episode (or current) mixed, moderate F31.62 [place] [address] [place] [id number] [address] [place] [address] Oct, Chronic pain G89.29 [place] [address] [place] [id number] [address] [place] [address] Oct, BMI 50.0-59.9, adult Z68.43 and Bipolar I disorder, most recent episode (or current) mixed, moderate F31.62 [facility] [address] [facility] [id number] [address] [place] [address] Oct, Bipolar I disorder, most rec ent episode (or current) mixed, moderate F31.62 [facility] [address] [facility] [id number] [address] [place] [address] Oct, [facility] [address] [facility] [id number] [address] [place] [address] Oct, Hypokalemia E87.6 [facility] [address] [facility] [id number] [address] [place] [address] Oct, DM neuro manif type II E11.4 9 [facility] [address] [facility] [id number] [address] [place] [phone] Oct, Bipolar I disorder, most rec ent episode (or current) mixed, moderate F31.62 [facility] [address] [facility] [id number] [address] [place] [address] Oct, Bipolar I disorder, most rec ent episode (or current) mixed, moderate F31.62 [facility] [address] [place] [id number] [address] [place] [address] Oct, Hyperkalemia E87.5 ; Falling R29.6 ; BMI 50.0-59.9, adult Z68.43 and Acute left ankle pain M25.572 [facility] [address] [place] [id number] [address] [place] [address] Oct, DM neuro manif type II E11.4 9 [facility] [address] [facility] [id number] [address] [place] [address] Oct, [facility] [address] [facility] [id number] [address] [place] [address] Sep, Chronic pain G89.29 [facility] [address] [place] [id number] [address] [place] [address] Sep, [facility] [address] [place] [id number] [address] [place] [address] Sep, Bilateral primary osteoarthr itis of knee M17.0 [facility] [address] [facility] [id number] [address] [place] [address] Sep, Generalized edema R60.1 [place] [address] [place] [id number] [address] [place] [id number] Sep, Bipolar I disorder, most rec ent episode (or current) mixed, moderate F31.62 [place] [address] [place] [id number] [address] [place] [address] Sep, Hypoxia R09.02 ; Other hyper volemia E87.79 ; Diabetes E11.9 ; Retinal edema H35.81 ; Hypokalemia E87.6 ; 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 ; Anemia of chronic illness D63.8 and BMI 50.0- 59.9, adult Z68.43 [place] [address] [place] [id number] [address] [place] [address] Sep, [place] [address] [place] [id number] [place] [address] Sep, Bipolar I disorder, most rec ent episode (or current) mixed, moderate F31.62 [place] [address] [place] [id number] [address] [place] [address] Aug, Chronic pain G89.29 [place] [address] [facility] [id number] [address] [place] [address] Aug, Generalized edema R60.1 [place] [address] [place] [id number] [address] [place] [address] Aug, [place] [address] [place] [id number] [address] [place] [address] Aug, [place] [address] [place] [id number] [address] [place] [address] Aug, Bipolar I disorder, most rec ent episode (or current) mixed, moderate F31.62 [place] [address] [place] [id number] [address] [place] [address] Aug, Bipolar I disorder, most rec ent episode (or current) mixed, moderate F31.62 [place] [address] [place] [id number] [address] [place] [address] Aug, Chronic pain G89.29 [place] [address] [place] [id number] [place] [address] Jul, Bipolar I disorder, most rec ent episode (or current) mixed, moderate F31.62 [place] [address] [place] [id number] [place] [address] Jul, Bipolar I disorder, most rec ent episode (or current) mixed, moderate F31.62 and BMI 60.0-69.9, adult Z68.44 [place] [address] [address] Jul, Bipolar I disorder, most rec ent episode (or current) mixed, moderate F31.62 [place] [address] [address] Jul, Chronic pain G89.29 [place] [address] [address] Jul, Bipolar I disorder, most rec ent episode (or current) mixed, moderate F31.62 [place] [id number] [place] [address] Jun, Polyneuropathy associated wi th underlying disease G63 and Diabetes E11.9 [place] [id number] [address] [place] [address] Jun, Bipolar I disorder, most rec ent episode (or current) mixed, moderate F31.62 [place] [address] [place] [id number] [address] [place] [address] Jun, Chronic pain G89.29 [facility] [address] [id number] [address] [place] [address] 27 May, 2017 Bipolar I disorder, most rec ent episode (or current) mixed, moderate F31.62 [facility] [address] [id number] [address] [place] [address] 21 May, 2017 Bipolar I disorder, most rec ent episode (or current) mixed, moderate F31.62 [facility] [address] [id number] [address] [place] [address] 20 May, 2017 Diabetic polyneuropathy asso ciated with type 2 diabetes mellitus E11.42 [facility] [address] [id number] [address] [place], [place] [address] 18 May, 2017 Bipolar I disorder, most rec ent episode (or current) mixed, moderate F31.62 [facility] [address] [id number] [address] [place] [id number] 13 May, 2017 Bipolar I disorder, most rec ent episode (or current) mixed, moderate F31.62 [facility] [address] [id number] [address] [place] [address] May, Chronic pain G89.29 [facility] [address] [id number] [address] [place], [place] [address] Apr, Bipolar I disorder, most rec ent episode (or current) mixed, moderate F31.62 [facility] [address] [id number] [address] [place] [address] Apr, [facility] [address] [id number] [address] [place] [address] Apr, Chronic pain G89.29 and DM n euro manif type II E11.49 [facility] [address] [id number] [address] [place] [address] Apr, [facility] [address] [id number] [address] [place] [address] Apr, Bipolar I disorder, most rec ent episode (or current) mixed, moderate F31.62 [facility] [address] [id number] [address] [place] [address] Apr, Chronic pain G89.29 [facility] [address] [id number] [address] [place] [address] Apr, Iliotibial band syndrome, le ft M76.32 [facility] [address] [id number] [address] [place] [address] Apr, Bipolar I disorder, most rec ent episode (or current) mixed, moderate F31.62 [facility] [address] [id number] [address] [place] [address] Mar, Bipolar I disorder, most rec ent episode (or current) mixed, moderate F31.62 [facility] [address] [id number] [address] [place] [address] Mar, Bipolar I disorder, most rec ent episode (or current) mixed, moderate F31.62 [facility] [address] [id number] [address] [place] [address] Mar, [facility] [address] [id number] [address] [place] [address] Mar, Bipolar I disorder, most rec ent episode (or current) mixed, moderate F31.62 [facility] [address] [id number] [address] [place] [address] Mar, Chronic pain G89.29 [facility] [address] [id number] [address] [place] [address] Mar, Bipolar I disorder, most rec ent episode (or current) mixed, moderate F31.62 [facility] [address] [id number] [address] [place] [address] Mar, Bipolar I disorder, most rec ent episode (or current) mixed, moderate F31.62 [facility] [address] [facility] [id number] [address] [place] [address] Mar, Acute pain of left knee M25. 562 ; Left hip pain M25.552 ; Generalized edema R60.1 and Tongue swelling R22.0 [facility] [address] [id number] [address] [place] [address] Mar, [facility] [address] [id number] [address] [place] [address] Feb, Chronic pain G89.29 [facility] [address] [id number] [address] [place] [address] Feb, Diabetes E11.9 [facility] [address] [id number] [address] [place] [address] January, Chronic pain G89.29 [facility] [address] [id number] [address] [place] [address] January, [facility] [address] [facility] [id number] [address] [place] [phone] January, Bipolar I disorder, most rec ent episode (or current) mixed, moderate F31.62 [facility] [address] [id number] [address] [place] [address] Dec, Bipolar I disorder, most rec ent episode (or current) mixed, moderate F31.62 [facility] [address] [id number] [address] [place] [address] Dec, Chronic pain G89.29 [facility] [address] [id number] [address] [place] [address] Dec, Bipolar I disorder, most rec ent episode (or current) mixed, moderate F31.62 [facility] [address] [id number] [address] [place] [address] Dec, Diabetes E11.9 ; Essential h ypertension I10 ; Chronic pain G89.29 and Morbid obesity E66.01 [facility] [address] [id number] [address] [place] [address] Dec, [facility] [address] [id number] [address] [place] [address] Dec, Bipolar I disorder, most rec ent episode (or current) mixed, moderate F31.62 [facility] [address] [id number] [address] [place] [address] Dec, Bipolar I disorder, most rec ent episode (or current) mixed, moderate F31.62 [facility] [address] [id number] [address] [place] [address] Nov, Chronic pain G89.29 [facility] [address] [id number] [address] [place] [phone] Nov, Bipolar I disorder, most rec ent episode (or current) mixed, moderate F31.62 [facility] [address] [id number] [address] [place] [address] Nov, [facility] [address] [id number] [address] [place] [address] Nov, Bipolar I disorder, most rec ent episode (or current) mixed, moderate F31.62 [facility] [address] [id number] [address] [place] [phone] Nov, Bipolar I disorder, most rec ent episode (or current) mixed, moderate F31.62 [facility] [address] [id number] [address] [place] [address] Nov, [facility] [address] [id number] [address] [place] [address] Nov, [facility] [address] [id number] [address] [place] [phone] Nov, [facility] [address] [id number] [address] [place] [address] Oct, Chronic pain G89.29 [facility] [address] [id number] [address] [place] [address] Oct, Bipolar I disorder, most rec ent episode (or current) mixed, moderate F31.62 [facility] [address] [id number] [address] [place] [address] Oct, [facility] [address] [facility] [id number] [address] [place] [address] Oct, Chronic pain G89.29 ; Diabet es E11.9 ; Anxiety F41.9 and 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 [facility] [address] [id number] [address] [place] [address] Oct, [facility] [address] [id number] [address] [place] [phone] Oct, Diabetes E11.9 [facility] [address] [facility] [id number] [address] [place] [phone] Oct, Bipolar I disorder, most rec ent episode (or current) mixed, moderate F31.62 [facility] [address] [facility] [id number] [address] [place] [address] Sep, Chronic pain G89.29 [facility] [address] [id number] [address] [place] [address] Sep, Chronic pain G89.29 [facility] [address] [facility] [id number] [address] [place] [address] Aug, Chronic pain G89.29 [facility] [address] [facility] [id number] [address] [place] [address] Jul, [facility] [address] [facility] [id number] [address] [place] [address] Jul, Diabetes E11.9 [facility] [address] [id number] [address] [place] [address] Jul, Chronic pain G89.29 [facility] [address] [facility] [id number] [address] [place] [address] Jul, Bipolar I disorder, most rec ent episode (or current) mixed, moderate F31.62 [facility] [address] [facility] [id number] [address] [place] [address] Jun, Bipolar I disorder, most rec ent episode (or current) mixed, moderate F31.62 [facility] [address] [facility] [id number] [address] [place] [address] Jun, [facility] [address] [facility] [id number] [address] [place] [address] Jun, Bipolar I disorder, most rec ent episode (or current) mixed, moderate F31.62 [place] [address] [facility] [id number] [address] [place] [address] May, Insomnia, unspecified type G 47.00 [place] [address] [facility] [id number] [address] [place] [address] May, Bipolar I disorder, most rec ent episode (or current) mixed, moderate F31.62 [place] [address] [place] [id number] [address] [place] [address] May, [facility] [address] [facility] [id number] [address] [place] [address] May, Bipolar I disorder, most rec ent episode (or current) mixed, moderate F31.62 [place] [address] [facility] [id number] [address] [place] [address] May, Diabetes E11.9 and Essential hypertension I10 [place] [address] [facility] [id number] [address] [place] [address] Apr, Chronic pain G89.29 [facility] [address] [facility] [id number] [address] [place] [address] Apr, Bipolar I disorder, most rec ent episode (or current) mixed, moderate F31.62 [facility] [address] [facility] [id number] [address] [place] [address] Apr, [facility] [address] [facility] [id number] [address] [place] [address] Apr, [place] [address] [facility] [id number] [address] [place] [address] Mar, Chronic pain G89.29 ; Headac he, unspecified headache type R51 ; Neuropathy G62.9 ; Pain of right hip joint M25.551 and Essential hypertension I10 [facility] [address] [facility] [id number] [address] [place] [address] Mar, Chronic pain G89.29 [place] [address] [facility] [id number] [address] [place] [address] Mar, Bipolar I disorder, most rec ent episode (or current) mixed, moderate F31.62 [place] [address] [facility] [id number] [address] [place] [address] Feb, Bipolar I disorder, most rec ent episode (or current) mixed, moderate F31.62 and Insomnia, unspecified type G47.00 [place] [address] [facility] [id number] [address] [place] [address] Feb, Chronic pain G89.29 [place] [address] [facility] [id number] [address] [place] [address] Feb, Bipolar I disorder, most rec ent episode (or current) mixed, moderate F31.62 [place] [address] [facility] [id number] [address] [place] [phone] January, Bipolar I disorder, most rec ent episode (or current) mixed, moderate F31.62 [place] [address] [facility] [id number] [address] [place] [phone] January, Chronic pain G89.29 [place] [address] [facility] [id number] [address] [place] [phone] January, Chronic pain G89.29 and Esse ntial hypertension I10 [place] [address] [facility] [id number] [address] [place] [phone] January, Bipolar I disorder, most rec ent episode (or current) mixed, moderate F31.62 [place] [address] [facility] [id number] [address] [place] [phone] Dec, [facility] [address] [facility] [id number] [address] [place] [phone] Dec, [facility] [address] [facility] [id number] [address] [place] [phone] Dec, [facility] [address] [place] [id number] [place] [phone] Dec, [facility] [address] [place] [id number] [place] [phone] Nov, Reactive airway disease J45. 909 [facility] [address] [address] [address] Nov, [facility] [address] [address] Nov, [facility] [address] [address] Nov, [facility] [address] [address] Nov, [facility] [address] [address] Nov, Onychomycosis B35.1 ; Hammer toe M20.40 ; [place] or callus L84 and DM neuro manif type II E11.49 [facility] [id number] [place] [address] Nov, Chronic pain G89.29 ; Leukoc ytosis D72.829 and Diabetes E11.9 [facility] [address] [place] [id number] [address] [place] [address] Nov, [facility] [address] [id number] [address] [place] [address] Oct, Bronchitis J40 [facility] [address] [address] Oct, [facility] [address] [address] Oct, [place] [address] [address] Oct, Mastoiditis, unspecified lat erality H70.90 and Type 2 diabetes mellitus with complication E11.8 [place] [address] [address] Sep, [place] [address] [address] Sep, Dysuria R30.0 ; Cough R05 ; Benign prostatic hyperplasia with lower urinary tract symptoms, unspecified morphology N40.1 ; Hypokalemia E87.6 and Eustachian tube dysfunction, unspecified laterality H69.80 [place] [address] [address] Sep, Moderate mixed bipolar I dis order F31.62 [place] [address] [address] Sep, Hypokalemia E87.6 [place] [address] [address] Sep, [place] [address] [address] Sep, Upper respiratory tract infe ction, unspecified type J06.9 [place] [address] [address] Aug, [place] [address] [address] Aug, Dysuria R30.0 [place] [address] [address] Aug, [place] [address] [address] Jul, [facility] [address] [id number] [address] [place] [address] Jul, [facility] [address] [id number] [address] [place] [address] Jul, [facility] [address] [id number] [address] [place] [address] Jul, [facility] [address] [id number] [address] [place] [address] Jun, [facility] [address] [id number] [address] [place] [address] Jun, [facility] [address] [id number] [address] [place] [address] Jun, [facility] [address] [id number] [address] [place] [address] May, [facility] [address] [id number] [address] [place] [address] May, Bipolar I disorder, most rec ent episode (or current) mixed, moderate 296.62 [facility] [address] [id number] [address] [place] [address] May, [facility] [address] [id number] [address] [place] [address] May, Bipolar I disorder, most rec ent episode (or current) mixed, moderate 296.62 and Major depressive disorder, recurrent episode, severe, specified as with psychotic behavior 296.34 [facility] [address] [id number] [address] [place] [address] May, Bipolar I disorder, most rec ent episode (or current) mixed, moderate 296.62 [facility] [address] [id number] [address] [place] [address] May, [facility] [address] [id number] [address] [place] [address] Apr, [facility] [address] [facility] [id number] [address] [place] [address] Apr, [facility] [address] [id number] [address] [place] [address] Apr, Unspecified disorder of kidn ey and ureter 593.9 and Diabetes mellitus type 2, uncontrolled 250.02 [facility] [address] [id number] [address] [place] [address] Apr, [facility] [address] [id number] [address] [place] [address] Apr, [facility] [address] [id number] [address] [place] [address] Apr, [facility] [address] [id number] [place] [address] Apr, [facility] [address] [address] Apr, Diabetes mellitus type II, u ncontrolled 250.02 [facility] [address] [id number] [address] [place] [address] Apr, [facility] [address] [id number] [address] [place] [address] Mar, [facility] [address] [id number] [address] [place] [address] Mar, [facility] [address] [id number] [address] [place] [address] Mar, [facility] [address] [id number] [address] [place] [address] Mar, Major depressive disorder, r ecurrent episode, severe, specified as with psychotic behavior 296.34 and Bipolar I disorder, most recent episode (or current) mixed, moderate 296.62 [facility] [address] [id number] [address] [place] [address] Mar, Diabetes 250.00 ; Anuria 788 .5 ; Nausea and vomiting 787.01 and Diarrhea 787.91 [facility] [address] [id number] [address] [place] [address] Mar, Diabetes 250.00 [facility] [address] [id number] [address] [place] [address] Mar, [facility] [address] [id number] [address] [place] [address] Mar, Diabetes 250.00 [facility] [address] [id number] [address] [place] [address] Mar, [facility] [address] [id number] [address] [place] [address] Mar, [facility] [address] [id number] [address] [place] [address] Mar, [facility] [address] [address] Mar, [facility] [address] [place] [id number] [address] [place] [address] Mar, Bipolar I disorder, most rec ent episode (or current) mixed, moderate 296.62 and Major depressive disorder, recurrent episode, severe, specified as with psychotic behavior 296.34 [facility] [address] [id number] [address] [place] [address] Mar, Magnesium deficiency 275.2 ; Hypokalemia 276.8 ; Nausea & vomiting 787.01 and Diabetes mellitus type 2, uncontrolled 250.02 [facility] [address] [id number] [address] [place] [address] Feb, [facility] [address] [address] Feb, Bipolar I disorder, most rec ent episode (or current) mixed, moderate 296.62 [facility] [address] [place] [id number] [address] [place] [address] Feb, Nausea and vomiting 787.01 ; Left elbow pain 719.42 ; Anuria 788.5 and Diabetes 250.00 [facility] [address] [id number] [address] [place] [address] Feb, [facility] [address] [id number] [address] [place] [address] Feb, Hypopotassemia 276.8 and Hyp okalemia 276.8 [facility] [address] [id number] [address] [place] [address] Feb, Hypopotassemia 276.8 and Hyp okalemia 276.8 [facility] [address] [facility] [id number] [address] [place] [address] Feb, Seborrheic keratoses 702.19 [facility] [address] [facility] [id number] [address] [place] [address] Feb, Hypopotassemia 276.8 and Low magnesium levels 275.2 [facility] [address] [id number] [address] [place] [address] January, [facility] [address] [id number] [address] [place] [address] January, [facility] [address] [facility] [id number] [address] [place] [address] January, [facility] [address] [facility] [id number] [address] [place] [address] January, Scalp lesion 709.9 [facility] [address] [facility] [id number] [address] [place] [address] January, [facility] [address] [facility] [id number] [address] [place] [address] Dec, Tear of medial cartilage or meniscus of knee, current 836.0 and Chondromalacia 733.92 [facility] [address] [id number] [address] [place] [address] Dec, [facility] [address] [facility] [id number] [address] [place] [address] 29 Dec, 2014 [facility] [address] [id number] [address] [place] [address], [place] [address] 28 Dec, 2014 Squamous cell carcinoma, 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 [facility] [address] [id number] [address] [place] [address], [place] [address] 14 Dec, 2014 [facility] [address] [id number] [address] [place] [address], [place] [address] 13 Dec, 2014 [facility] [address] [id number] [address] [place] [address], [place] [address] 27 Nov, 2014 [facility] [address] [id number] [address] [place] [address], [place] [address] Nov, [facility] [address] [id number] [address] [place] [address], [place] [address] Nov, [facility] [address] [id number] [address] [place] [address], [place] [address] Nov, [facility] [address] [id number] [address] [place] [address], [place] [address] Nov, [facility] [address] [id number] [address] [place] [address], [place] [address] Nov, [facility] [address] [id number] [address] [place] [address], [place] [address] Nov, [facility] [address] [id number] [address] [place] [address], [place] [address] Nov, [facility] [address] [id number] [address] [place] [address], [place] [address] Nov, [facility] [address] [id number] [address] [place] [address], [place] [address] Nov, [facility] [address] [id number] [address] [place] [address], [place] [address] Nov, [facility] [address] [id number] [address] [place] [address], [place] [address] Nov, [facility] [address] [id number] [address] [place] [address], [place] [address] Oct, 2014 [facility] [address] [id number] [address] [place] [address], [place] [address] Oct, 2014 [facility] [address] [id number] [address] [place] [address], [place] [address] Oct, 2014 [facility] [address] [id number] [address] [place] [address], [place] [address] Oct, 2014 [facility] [address] [id number] [address] [place] [address], [place] [address] Oct, 2014 [facility] [address] [id number] [address] [place] [address], [place] [address] Oct, 2014 [facility] [address] [id number] [address] [place] [address], [place] [address] Oct, 2014 [facility] [address] [id number] [address] [place] [address], [place] [address] Oct, 2014 [facility] [address] [id number] [address] [place] [address], [place] [address] Oct, [facility] [address] [id number] [address] [place] [address], [place] [address] Sep, [facility] [address] [id number] [address] [place] [address] Sep, [facility] [address] [id number] [address] [place] [address] Sep, [facility] [address] [id number] [address] [place] [address], [place] [address] Sep, [facility] [address] [id number] [address] [place] [address], [place] [address] Sep, [facility] [address] [id number] [address] [place] [address], [place] [address] Sep, [facility] [address] [id number] [address] [place] [address], [place] [address] Sep, [facility] [address] [id number] [address] [place] [address], [place] [address] Sep, [facility] [address] [id number] [address] [place] [address], [place] [address] Sep, [facility] [address] [id number] [address] [place] [address], [place] [address] Sep, [facility] [address] [id number] [address] [place] [address], [place] [address] Sep, [facility] [address] [id number] [address] [place] [address], [place] [address] Sep, [facility] [address] [id number] [address] [place] [address], [place] [address] Sep, [facility] [address] [id number] [address] [place] [address], [place] [address] Sep, [facility] [address] [id number] [address] [place] [address], [place] [address] Sep, [facility] [address] [id number] [address] [place] [address], [place] [address] Sep, [facility] [address] [id number] [address] [place] [address], [place] [address] Aug, [facility] [address] [id number] [address] [place] [address], [place] [address] Aug, [facility] [address] [id number] [address] [place] [address], [place] [address] Aug, [facility] [address] [id number] [address] [place] [address], [place] [address] Aug, [facility] [address] [id number] [address] [place] [address], [place] [address] Aug, [facility] [address] [id number] [address] [place] [address], [place] [address] Aug, [facility] [address] [id number] [facility] [place] [address] Aug, [facility] [address] [id number] [facility] [place] [address] Aug, [facility] [address] [id number] [facility] [place] [address] Aug, [facility] [address] [id number] [facility] [place] [address] Aug, [facility] [address] [id number] [facility] [place] [address] Aug, [facility] [id number] Aug, [facility] [address] [id number] [facility] [place] [address] Aug, [facility] [address] [id number] [address] [place] [address], [place] [address] Aug, [facility] [address] [id number] [address] [place] [address], [place] [address] Aug, [facility] [address] [id number] [address] [place] [address], [place] [address] Aug, [facility] [address] [id number] [facility] [place] [address] Aug, [facility] [address] [id number] [address] [place] [address], [place] [address] Aug, [facility] [address] [id number] [address] [place] [address], [place] [address] Aug, [facility] [address] [id number] [facility] [place] [address] Aug, [facility] [address] [id number] [facility] [place] [address] Aug, [facility] [address] [id number] [address] [place] [address], [place] [address] Aug, [facility] [address] [id number] [address] [place] [address], [place] [address] Aug, [facility] [address] [id number] [address] [place] [address], [place] [address] Aug, [facility] [address] [id number] [address] [place] [address], [place] [address] Aug, [facility] [address] [id number] [address] [place] [address], [place] [address] Aug, [facility] [address] [id number] [address] [place] [address], [place] [address] Aug, [facility] [address] [id number] [address] [place] [address], [place] [address] Aug, [facility] [address] [id number] [address] [place] [address], [place] [address] Aug, [facility] [address] [id number] [address] [place] [address], [place] [address] Aug, [facility] [address] [id number] [address] [place] [address], [place] [address] Jul, [facility] [address] [id number] [address] [place] [address], [place] [address] Jul, [facility] [address] [id number] [address] [place] [address], [place] [address] Jul, [facility] [address] [id number] [address] [place] [address], [place] [address] Jul, [facility] [address] [id number] [address] [place] [address], [place] [address] Jul, [facility] [address] [id number] [address] [place] [address], [place] [address] Jul, [facility] [address] [id number] [address] [place] [address], [place] [address] Jul, [facility] [address] [id number] [address] [place] [address], [place] [address] Jul, [facility] [address] [id number] [address] [place] [address], [place] [address] Jul, [facility] [address] [id number] [address] [place] [address], [place] [address] Jul, [facility] [address] [id number] [address] [place] [address], [place] [address] Jun, [facility] [address] [id number] [address] [place] [address], [place] [address] Jun, [facility] [address] [id number] [address] [place] [address], [place] [address] Jun, [facility] [address] [id number] [address] [place] [address], [place] [address] Jun, [facility] [address] [id number] [address] [place] [address], [place] [address] Jun, [facility] [address] [id number] [address] [place] [address], [place] [address] Jun, [facility] [address] [id number] [address] [place] [address], [place] [address] Jun, [facility] [address] [id number] [address] [place] [address], [place] [address] Jun, [facility] [address] [id number] [address] [place] [address], [place] [address] Jun, [facility] [address] [id number] [address] [place] [address], [place] [address] Jun, [facility] [address] [id number] [address] [place] [address], [place] [address] May, [facility] [address] [id number] [address] [place] [address], [place] [address] May, [facility] [address] [id number] [address] [place] [address], [place] [address] May, [facility] [address] [id number] [facility] [place] [address] 26 Sep, 2013 [facility] [address] [id number] [facility] [place] [address] 17 May, 2013 [facility] [address] [id number] [facility] [place] [address] 17 May, 2013 [facility] [address] [id number] [address] [place] [address], [place] [address] 15 May, 2013 [facility] [address] [id number] [address] [place] [address], [place] [address] 15 May, 2013 [facility] [address] [id number] [address] [place] [address], [place] [address] 15 May, 2013 [facility] [address] [id number] [address] [place] [address], [place] [address] 15 May, 2013 [facility] [address] [id number] [address] [place] [address], [place] [address] 10 May, 2013 [facility] [address] [id number] [address] [place] [address], [place] [address] 10 May, 2013 [facility] [address] [id number] [address] [place] [address], [place] [address] 09 May, 2013 [facility] [address] [id number] [address] [place] [address], [place] [address] 09 May, 2013 [facility] [address] [id number] [address] [place] [address], [place] [address] 04 May, 2013 [facility] [address] [id number] [address] [place] [address], [place] [address] May, 2013 [facility] [address] [id number] [address] [place] [address], [place] [address] Apr, [facility] [address] [id number] [address] [place] [address], [place] [address] Apr, [facility] [address] [id number] [address] [place] [address], [place] [address] Apr, [facility] [address] [id number] [facility] [place] [address] Apr, [facility] [address] [id number] [address] [place] [address], [place] [address] Apr, [facility] [address] [id number] [address] [place] [address], [place] [address] Apr, [facility] [address] [id number] [address] [place] [address], [place] [address] Apr, [facility] [address] [id number] [address] [place] [address], [place] [address] Apr, [facility] [address] [id number] [address] [place] [address], [place] [address] Apr, [facility] [address] [id number] [address] [place] [address], [place] [address] Apr, [facility] [address] [id number] [address] [place] [address], [place] [address] Apr, [facility] [address] [id number] [address] [place] [address], [place] [address] Apr, [facility] [address] [id number] [address] [place] [address], [place] [address] Apr, [facility] [address] [id number] [address] [place] [address], [place] [address] Apr, [facility] [address] [id number] [address] [place] [address], [place] [address] Apr, [facility] [address] [id number] [address] [place] [address], [place] [address] Mar, [facility] [address] [id number] [address] [place] [address], [place] [address] Mar, [facility] [address] [id number] [address] [place] [address], [place] [address] Mar, [facility] [address] [id number] [facility] [place] [address] Mar, 2013 [facility] [address] [id number] [address] [place] [address], [place] [address] Mar, 2013 [facility] [address] [id number] [address] [place] [address], [place] [address] Mar, 2013 [facility] [address] [id number] [address] [place] [address], [place] [address] Mar, 2013 [facility] [address] [id number] [address] [place] [address], [place] [address] Mar, 2013 [facility] [address] [id number] [address] [place] [address], [place] [address] Mar, 2013 [facility] [address] [id number] [address] [place] [address], [place] [address] Mar, 2013 [facility] [address] [id number] [address] [place] [address], [place] [address] Mar, 2013 [facility] [address] [id number] [address] [place] [address], [place] [address] Mar, 2013 [facility] [address] [id number] [address] [place] [address], [place] [address] Mar, 2013 [facility] [address] [id number] [address] [place] [address], [place] [address] Mar, 2013 [facility] [address] [id number] [address] [place] [address], [place] [address] Mar, 2013 [facility] [address] [id number] [address] [place] [address], [place] [address] Mar, 2013 [facility] [address] [id number] [address] [place] [address], [place] [address] Mar, 2013 [facility] [address] [id number] [address] [place] [address], [place] [address] Mar, 2013 [facility] [address] [id number] [address] [place] [address], [place] [address] Feb, [facility] [address] [id number] [address] [place] [address], [place] [address] Feb, [facility] [address] [id number] [address] [place] [address], [place] [address] Feb, [facility] [address] [id number] [address] [place] [address], [place] [address] Feb, [facility] [address] [id number] [address] [place] [address], [place] [address] Feb, [facility] [address] [id number] [address] [place] [address], [place] [address] Feb, [facility] [address] [id number] [address] [place] [address], [place] [address] Feb, [facility] [address] [id number] [address] [place] [address], [place] [address] Feb, [facility] [address] [id number] [address] [place] [address], [place] [address] Feb, [facility] [address] [id number] [address] [place] [address], [place] [address] Feb, [facility] [address] [id number] [address] [place] [address], [place] [address] Feb, [facility] [address] [id number] [address] [place] [address], [place] [address] Feb, [facility] [address] [id number] [address] [place] [address], [place] [address] Feb, [facility] [address] [id number] [address] [place] [address], [place] [address] Feb, [facility] [address] [id number] [address] [place] [address], [place] [address] January, [facility] [address] [id number] [address] [place] [address], [place] [address] January, [facility] [address] [id number] [address] [place] [address], [place] [address] January, [facility] [address] [id number] [address] [place] [address], [place] [address] January, [facility] [address] [id number] [address] [place] [address], [place] [address] January, [facility] [address] [id number] [address] [place] [address], [place] [address] January, [facility] [address] [id number] [address] [place] [address], [place] [address] January, [facility] [address] [id number] [address] [place] [address], [place] [address] January, [facility] [address] [id number] [address] [place] [address], [place] [address] January, [facility] [address] [id number] [address] [place] [address], [place] [address] January, [facility] [address] [id number] [address] [place] [address], [place] [address] January, [facility] [address] [id number] [address] [place] [address], [place] [address] January, [facility] [address] [id number] [address] [place] [address], [place] [address] January, [facility] [address] [id number] [address] [place] [address], [place] [address] January, [facility] [address] [id number] [address] [place] [address], [place] [address] Dec, [facility] [address] [id number] [address] [place] [address], [place] [address] Dec, [facility] [address] [id number] [address] [place] [address], [place] [address] Dec, [facility] [address] [id number] [address] [place] [address], [place] [address] Dec, [facility] [address] [id number] [facility] [place] [address] Dec, [facility] [address] [id number] [facility] [place] [address] Dec, [facility] [address] [id number] [facility] [place] [address] Dec, [facility] [address] [id number] [facility] [place] [address] Dec, [facility] [address] [id number] [facility] [place] [address] Dec, [facility] [address] [id number] [address] [place] [address], [place] [address] Dec, [facility] [address] [id number] [address] [place] [address], [place] [address] Nov, [facility] [address] [id number] [address] [place] [address], [place] [address] Nov, [facility] [address] [id number] [address] [place] [address], [place] [address] Nov, [facility] [address] [id number] [address] [place] [address], [place] [address] Nov, [facility] [address] [id number] [address] [place] [address], [place] [address] Nov, [facility] [address] [id number] [address] [place] [address], [place] [address] Nov, [facility] [address] [id number] [address] [place] [address], [place] [address] Nov, [facility] [address] [id number] [address] [place] [address], [place] [address] Nov, [facility] [address] [id number] [address] [place] [address], [place] [address] Nov, [facility] [address] [id number] [address] [place] [address], [place] [address] Nov, [facility] [address] [id number] [facility] [place] [address] Oct, [facility] [address] [id number] [address] [place] [address], [place] [address] Oct, [facility] [address] [id number] [address] [place] [address], [place] [address] Oct, [facility] [address] [id number] [address] [place] [address], [place] [address] Oct, [facility] [address] [id number] [address] [place] [address], [place] [address] Oct, [facility] [address] [id number] [address] [place] [address], [place] [address] Oct, [facility] [address] [id number] [address] [place] [address], [place] [address] Oct, [facility] [address] [id number] [address] [place] [address], [place] [address] Oct, [facility] [address] [id number] [address] [place] [address], [place] [address] Oct, [facility] [address] [id number] [address] [place] [address], [place] [address] Oct, [facility] [address] [id number] [address] [place] [address], [place] [address] Oct, [facility] [address] [id number] [address] [place] [address], [place] [address] Oct, [facility] [address] [id number] [address] [place] [address], [place] [address] Oct, [facility] [address] [id number] [address] [place] [address], [place] [address] Oct, [facility] [address] [id number] [address] [place] [address], [place] [address] Sep, [facility] [address] [id number] [address] [place] [address], [place] [address] Sep, [facility] [address] [id number] [address] [place] [address], [place] [address] Sep, [facility] [address] [id number] [address] [place] [address], [place] [address] Sep, [facility] [address] [id number] [address] [place] [address], [place] [address] Sep, [facility] [address] [id number] [address] [place] [address], [place] [address] Sep, [facility] [address] [id number] [address] [place] [address], [place] [address] Sep, [facility] [address] [id number] [address] [place] [address], [place] [address] Sep, [facility] [address] [id number] [address] [place] [address], [place] [address] Sep, [facility] [address] [id number] [address] [place] [address], [place] [address] Sep, [facility] [address] [id number] [address] [place] [address], [place] [address] Aug, [facility] [address] [id number] [address] [place] [address], [place] [address] Aug, [facility] [address] [id number] [address] [place] [address], [place] [address] Jul, [facility] [address] [id number] [address] [place] [address], [place] [address] Jul, [facility] [address] [id number] [address] [place] [address], [place] [address] Jul, [facility] [address] [id number] [address] [place] [address], [place] [address] Jul, [facility] [address] [id number] [address] [place] [address], [place] [address] Jul, [facility] [address] [id number] [address] [place] [address], [place] [address] Jul, [facility] [address] [id number] [address] [place] [address], [place] [address] Jul, [facility] [address] [id number] [address] [place] [address], [place] [address] Jul, [facility] [address] [id number] [address] [place] [address] Jul, [facility] [address] [id number] [address] [place] [address], [place] [address] Jul, [facility] [address] [id number] [address] [place] [address], [place] [address] Jul, [facility] [address] [id number] [address] [place] [address], [place] [address] Jul, [facility] [address] [id number] [address] [place] [address], [place] [address] Jul, [facility] [address] [id number] [address] [place] [address], [place] [address] Jul, [facility] [address] [id number] [address] [place] [address], [place] [address] Jul, [facility] [address] [id number] [address] [place] [address] Jul, [facility] [address] [id number] [address] [place] [address] Jul, [facility] [address] [id number] [address] [place] [address], [place] [address] Jul, [facility] [address] [id number] [address] [place] [address], [place] [address] Jul, [facility] [address] [id number] [address] [place] [address], [place] [address] Jun, [facility] [address] [id number] [address] [place] [address], [place] [address] 16 Jun, 2012 [facility] [address] [id number] [address] [place] [address], [place] [address] 16 Jun, 2012 [facility] [address] [id number] [address] [place] [address], [place] [address] 16 Jun, 2012 [facility] [address] [id number] [address] [place] [address], [place] [address] 16 Jun, 2012 [facility] [address] [id number] [address] [place] [address], [place] [address] 16 Jun, 2012 [facility] [address] [id number] [address] [place] [address], [place] [address] 10 Jun, 2012 [facility] [address] [id number] [address] [place] [address], [place] [address] 10 Jun, 2012 [facility] [address] [id number] [address] [place] [address], [place] [address] 09 Jun, 2012 [facility] [address] [id number] [address] [place] [address], [place] [address] 09 Jun, 2012 [facility] [address] [id number] [address] [place] [address], [place] [address] 01 Jun, 2013 [facility] [address] [id number] [address] [place] [address], [place] [address] 26 Sep, 2012 [facility] [address] [id number] [address] [place] [address], [place] [address] 25 Sep, 2012 [facility] [address] [id number] [address] [place] [address], [place] [address] 19 Sep, 2012 [facility] [address] [id number] [address] [place] [address], [place] [address] 17 Sep, 2012 [facility] [address] [id number] [address] [place] [address], [place] [address] 11 Sep, 2012 [facility] [address] [id number] [address] [place] [address], [place] [address] May, [facility] [address] [id number] [address] [place] [address], [place] [address] May, [facility] [address] [id number] [address] [place] [address], [place] [address] May, [facility] [address] [id number] [address] [place] [address], [place] [address] Apr, [facility] [address] [id number] [address] [place] [address], [place] [address] Apr, [facility] [address] [id number] [address] [place] [address], [place] [address] Apr, [facility] [address] [id number] [address] [place] [address], [place] [address] Apr, [facility] [address] [id number] [address] [place] [address], [place] [address] Apr, [facility] [address] [id number] [address] [place] [address], [place] [address] Mar, [facility] [address] [id number] [address] [place] [address], [place] [address] Mar, [facility] [address] [id number] [address] [place] [address], [place] [address] Mar, [facility] [address] [id number] [address] [place] [address], [place] [address] Mar, [facility] [address] [id number] [address] [place] [address], [place] [address] Mar, [facility] [address] [id number] [address] [place] [address], [place] [address] Mar, [facility] [address] [id number] [address] [place] [address], [place] [address] Mar, [facility] [address] [id number] [address] [place] [address], [place] [address] Mar, [facility] [address] [id number] [address] [place] [address] Feb, [facility] [address] [id number] [address] [place] [address], [place] [address] Feb, [facility] [address] [id number] [address] [place] [address], [place] [address] January, [facility] [address] [id number] [address] [place] [address], [place] [address] January, [facility] [address] [id number] [address] [place] [address], [place] [address] Dec, [facility] [address] [id number] [address] [place] [address], [place] [address] Dec, [facility] [address] [id number] [address] [place] [address], [place] [address] Nov, [facility] [address] [id number] [address] [place] [address], [place] [address] Nov, [facility] [address] [id number] [address] [place] [address], [place] [address] Nov, [facility] [address] [id number] [address] [place] [address], [place] [address] Nov, [facility] [address] [id number] [address] [place] [address], [place] [address] Oct, [facility] [address] [id number] [address] [place] [address], [place] [address] Oct, [facility] [address] [id number] [address] [place] [address], [place] [address] Oct, [facility] [address] [id number] [address] [place] [address], [place] [address] Oct, [facility] [address] [id number] [address] [place] [address], [place] [address] 16 Oct, 2012 [facility] [address] [id number] [address] [place] [address], [place] [address] 14 Oct, 2012 [facility] [address] [id number] [address] [place] [address], [place] [address] 08 Oct, 2012 [facility] [address] [id number] [address] [place] [address], [place] [address] 07 Oct, 2012 [facility] [address] [id number] [address] [place] [address], [place] [address] 03 Oct, 2012 [facility] [address] [id number] [address] [place] [address], [place] [address] 30 Sep, 2012 [facility] [address] [id number] [address] [place] [address], [place] [address] 29 Sep, 2012 [facility] [address] [id number] [address] [place] [address], [place] [address] Sep, [facility] [address] [id number] [address] [place] [address], [place] [address] Sep, [facility] [address] [id number] [address] [place] [address], [place] [address] 17 Sep, 2012 [facility] [address] [id number] [address] [place] [address], [place] [address] Sep, [facility] [address] [id number] [address] [place] [address], [place] [address] Sep, [facility] [address] [id number] [address] [place] [address], [place] [address] Sep, [facility] [address] [id number] [address] [place] [address], [place] [address] Aug, [facility] [address] [id number] [address] [place] [address], [place] [address] Aug, [facility] [address] [id number] [address] [place] [address], [place] [address] Aug, [facility] [address] [id number] [address] [place] [address], [place] [address] Aug, [facility] [address] [id number] [address] [place] [address], [place] [address] Aug, [facility] [address] [id number] [address] [place] [address], [place] [address] Aug, [facility] [address] [id number] [address] [place] [address], [place] [address] Aug, [facility] [address] [id number] [address] [place] [address], [place] [address] Aug, [facility] [address] [id number] [address] [place] [address], [place] [address] Jul, [facility] [address] [id number] [address] [place] [address], [place] [address] Jul, [facility] [address] [id number] [address] [place] [address], [place] [address] Jul, [facility] [address] [id number] [address] [place] [address], [place] [address] Jul, [facility] [address] [id number] [address] [place] [address], [place] [address] Jul, [facility] [address] [id number] [address] [place] [address], [place] [address] Jul, [facility] [address] [id number] [address] [place] [address], [place] [address] Jun, [facility] [address] [id number] [address] [place] [address], [place] [address] Jun, [facility] [address] [id number] [address] [place] [id number] Jun, [facility] [address] [id number] [address] [place] [address], [place] [address] Jun, [facility] [address] [id number] [address] [place] [address], [place] [address] Jun, [facility] [address] [id number] [address] [place] [address], [place] [address] Jun, [facility] [address] [id number] [address] [place] [address], [place] [address] Jun, [facility] [address] [id number] [address] [place] [address], [place] [address] Jun, [facility] [address] [id number] [address] [place] [address], [place] [address] Jun, [facility] [address] [id number] [address] [place] [address], [place] [address] 26 May, 2012 [facility] [address] [id number] [address] [place] [address], [place] [address] 24 May, 2012 [facility] [address] [id number] [address] [place] [address], [place] [address] May, [facility] [address] [id number] [address] [place] [address], [place] [address] 30 Apr, 2012 [facility] [address] [id number] [address] [place] [address], [place] [address] Apr, [facility] [address] [id number] [address] [place] [address], [place] [address] Apr, [facility] [address] [id number] [address] [place] [address], [place] [address] Apr, [facility] [address] [id number] [address] [place] [address], [place] [address] Apr, [facility] [address] [id number] [address] [place] [address], [place] [address] Apr, [facility] [address] [id number] [address] [place] [address], [place] [address] Mar, [facility] [address] [id number] [address] [place] [address], [place] [address] Mar, [facility] [address] [id number] [address] [place] [address], [place] [address] Mar, [facility] [address] [id number] [address] [place] [address], [place] [address] Mar, [facility] [address] [id number] [address] [place] [address], [place] [address] Feb, [facility] [address] [id number] [address] [place] [address], [place] [address] Feb, [facility] [address] [id number] [address] [place] [address], [place] [address] Feb, [facility] [address] [id number] [address] [place] [address], [place] [address] Feb, [facility] [address] [id number] [address] [place] [address], [place] [address] Feb, [facility] [address] [id number] [address] [place] [address], [place] [address] January, [facility] [address] [id number] [address] [place] [address], [place] [address] January, [facility] [address] [id number] [address] [place] [address], [place] [address] January, [facility] [address] [id number] [address] [place] [address], [place] [address] January, [facility] [address] [id number] [address] [place] [address], [place] [address] January, [facility] [address] [id number] [address] [place] [address], [place] [address] January, [facility] [address] [id number] [address] [place] [address], [place] [address] Dec, [facility] [address] [id number] [address] [place] [address], [place] [address] Dec, [facility] [address] [id number] [address] [place] [address], [place] [address] Dec, [facility] [address] [id number] [address] [place] [address], [place] [address] Dec, [facility] [address] [id number] [address] [place] [address], [place] [address] 06 Dec, 2011 [facility] [address] [id number] [address] [place] [address], [place] [address] 27 Nov, 2011 [facility] [address] [id number] [address] [place] [address], [place] [address] 14 Nov, 2011 [facility] [address] [id number] [address] [place] [address], [place] [address] 12 Nov, 2011 [facility] [address] [id number] [address] [place] [address], [place] [address] 07 Nov, 2011 [facility] [address] [id number] [address] [place] [address], [place] [address] 29 Oct, 2011 [facility] [address] [id number] [address] [place] [address], [place] [address] 28 Oct, 2011 [facility] [address] [id number] [address] [place] [address], [place] [address] 24 Oct, 2011 [facility] [address] [id number] [address] [place] [address], [place] [address] 13 Oct, 2011 [facility] [address] [id number] [address] [place] [address], [place] [address] 08 Oct, 2011 [facility] [address] [id number] [address] [place] [address], [place] [phone] Sep, [facility] [address] [id number] [address] [place] [address], [place] [address] Sep, [facility] [address] [id number] [address] [place] [address], [place] [address] Sep, [facility] [address] [id number] [address] [place] [address], [place] [address] Sep, [facility] [address] [id number] [address] [place] [address], [place] [address] Sep, [facility] [address] [id number] [address] [place] [address], [place] [address] Sep, [facility] [address] [id number] [address] [place] [address], [place] [address] Aug, [facility] [address] [id number] [address] [place] [address], [place] [address] Aug, [facility] [address] [id number] [address] [place] [address], [place] [address] Aug, [facility] [address] [id number] [address] [place] [address], [place] [address] Jul, [facility] [address] [id number] [address] [place] [address], [place] [address] Jul, [facility] [address] [id number] [address] [place] [address], [place] [address] Jul, [facility] [address] [id number] [address] [place] [address], [place] [address] Jul, [facility] [address] [id number] [address] [place] [address], [place] [address] Jun, [facility] [address] [id number] [address] [place] [address], [place] [address] Jun, [facility] [address] [id number] [address] [place] [phone] Jun, [facility] [address] [id number] [address] [place] [address], [place] [address] Jun, [facility] [address] [id number] [address] [place] [id number] Jun, [facility] [address] [id number] [address] [place] [address], [place] [address] Jun, [facility] [address] [id number] [address] [place] [id number] Mar, [facility] [address] [id number] [address] [place] [address], [place] [address] Dec, [facility] [address] [id number] [address] [place] [address], [place] [address] 11 Dec, 2010 [facility] [address] [id number] [address] [place] [address], [place] [address] 18 Nov, 2010 [facility] [address] [id number] [address] [place] [address], [place] [address] 16 Nov, 2010 [facility] [address] [id number] [address] [place] [address], [place] [address] 10 Sep, 2010 [facility] [address] [id number] [address] [place] [address], [place] [address] 31 Aug, 2010 [facility] [address] [id number] [address] [place] [address], [place] [address] 29 Aug, 2010 [facility] [address] [id number] [address] [place] [address], [place] [address] 29 Aug, 2010 [facility] [address] [id number] [address] [place] [address], [place] [address] 29 Aug, 2010 [facility] [address] [id number] [address] [place] [address], [place] [address] 27 Aug, 2010 [facility] [address] [id number] [address] [place] [address], [place] [address] 14 Aug, 2010 [facility] [address] [id number] [address] [place] [address], [place] [address] 08 Aug, 2010 [facility] [address] [id number] [address] [place] [address], [place] [address] 08 Aug, 2010 [facility] [address] [id number] [address] [place] [address], [place] [address] 07 Aug, 2010 [facility] [address] [id number] [address] [place] [address], [place] [address] 06 Aug, 2010 [facility] [address] [id number] [address] [place] [address], [place] [address] 06 Aug, 2010 [facility] [address] [id number] [address] [place] [address], [place] [address] Aug, [facility] [address] [id number] [address] [place] [address], [place] [address] Jul, [facility] [address] [id number] [address] [place] [address], [place] [address] Jul, [facility] [address] [id number] [address] [place] [address], [place] [address] Jul, [facility] [address] [id number] [address] [place] [address], [place] [address] Jul, [facility] [address] [id number] [address] [place] [address], [place] [address] Jul, [facility] [address] [id number] [address] [place] [address], [place] [address] Jul, [facility] [address] [id number] [address] [place] [address], [place] [address] Jun, [facility] [address] [id number] [address] [place] [address], [place] [address] Jun, [facility] [address] [id number] [address] [place] [address], [place] [address] Jun, [facility] [address] [id number] [address] [place] [address], [place] [address] Jun, [facility] [address] [id number] [address] [place] [address], [place] [address] Apr, [facility] [address] [id number] [address] [place] [address], [place] [address] Mar, [facility] [address] [id number] [address] [place] [address], [place] [address] Feb, [facility] [address] [id number] [address] [place] [address], [place] [address] January, [facility] [address] [id number] [address] [place] [address], [place] [address] 15 Dec, 2009 [facility] [address] [id number] [address] [place] [address], [place] [address] Nov, [facility] [address] [id number] [address] [place] [address], [place] [address] 31 Aug, 2009 [facility] [address] [id number] [address] [place] [phone] Aug, [facility] [address] [id number] [address] [place] [phone] Aug, [facility] [address] [id number] [address] [place] [id number] Jul, [facility] [address] [id number] [address] [place] [address], [place] [address] Jul, [facility] [address] [id number] [address] [place] [phone] Jul, [facility] [address] [id number] [address] [place] [phone] 30 Jun, 2009 [facility] [address] [id number] [address] [place] [id number] Jun, [facility] [address] [id number] [address] [place] [id number] Jun, [facility] [address] [id number] [address] [place] [id number] Jun, [facility] [address] [id number] [address] [place] [phone] Jun, [facility] [address] [id number] [address] [place] [id number] Jun, [facility] [address] [id number] [address] [place] [id number] Apr, [facility] [address] [id number] [address] [place] [phone] Apr, [facility] [address] [id number] [address] [place] [id number] Feb, [facility] [address] [id number] [address] [place] [id number] January, [facility] [address] [facility] [id number] [address] [place] [phone] Dec, IMMUNIZATIONS No Known Immunizations SOCIAL HISTORY [...] EGD ([facility]) 2009 Surgical History colonoscopy 2009 ([facility]), 2013 ([place] ) Surgical History heart cath: CAD w/ [...] History inability to urinate 09/16/15 Hospitalization History [facility] 1999's Hospitalization History hyperkalemia 10/2017 Hospitalization History fluid in lung Hospitalization History stroke, 02/2020
--- OUTSIDE RECORDS SUMMARY | 2020-04-11 11:06 | XMS REPORT ---
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 Name Role Phone ROSELINE LUIS Unavailable PROBLEMS Type Condition ICD9-CM Code VER61-UB Code Onset Dates Condition S tatus SNOMED Code Problem Insomnia, unspecified type G47.00 Act sharon 867626654 Problem Morbid obesity E66.01 Active 35547 6002 Problem Anxiety F41.9 Active 90219170 Problem Diabetic polyneuropathy associated with type 2 d iabetes mellitus E11.42 Active 75930847 Problem Essential hypertension I10 Active 52870335 Problem Bilateral primary osteoarthritis of knee M17.0 Active 182534818 Problem Polyneuropathy associated with underlying disease G63 Active 838984339 Problem Psychophysiological insomnia F51.04 A ctive 634001020 Problem Leukocytosis D72.829 Active 0352977 06 Problem Chronic diastolic (congestive) heart failure I50.3 2 Active 702600225 Problem Diabetes E11.9 Active 03443156 Problem Bipolar I disorder, most recent episode (or curr ent) mixed, moderate F31.62 Active 43300460 Problem Reactive airway disease J45.909 Active 358901580397 Problem Bipolar disorder, in partial remission, most rec ent episode depressed F31.75 Active 50872504 Problem Falling R29.6 Active 671674423 Problem Primary osteoarthritis of right knee M17.11 Active [id number] Problem Cough R05 Active 36473981 Problem Pure hypercholesterolemia E78.00 Acti ve 746453888 Problem Dysuria R30.0 Active 60181155 Problem Mild cognitive impairment G31.84 Acti ve 901979130 Problem Benign prostatic hyperplasia with lower urinary tract symptoms, unspecified morphology N40.1 Active 13680 6007 Problem Other iron deficiency anemia D50.8 A ctive 76440023 Problem Eustachian tube dysfunction, unspecified laterality H69.80 Active 06279558 Problem Bipolar disorder F31.9 Active 137 39005 Problem Chronic pain G89.29 Active 6240887 1 Problem Skin cancer C44.90 Active 60089693 7 Problem DM neuro manif type II E11.49 Active 91908359 Problem Type 2 diabetes mellitus with diabetic neuropathy, uns pecified E11.40 Active 94186591 Problem shelter (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 Z79.4 Active 398931795 Problem Mood disorder F39 Active 616977 05 Problem Agitation R45.1 Active 874197368 Problem Anemia of chronic illness D63.8 Acti ve 543015632 Problem Lymphocytosis D72.820 Active 707772 09 Problem Dysphagia, unspecified type R13.10 Ac tive 52963750 Problem Retinal edema H35.81 Active 975066 6 Problem Chronic lymphocytic leukemia C91.10 A ctive 80128823 Problem Pressure ulcer of other site, stage 3 L89.893 Active 292421995 Problem 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 [id number] [address] [place] [phone] Apr, [place] [address] [facility] [id number] [address] [place] [phone] Mar, [facility] [address] [facility] [id number] [address] [place] [phone] Mar, [facility] [address] [facility] [id number] [address] [place] [phone] Mar, [place] [address] [facility] [id number] [address] [place] [phone] Mar, Mood disorder F39 [facility] [address] [facility] [id number] [address] [place] [id number] Mar, Bipolar I disorder, most rec ent episode depressed, moderate F31.32 ; Anxiety F41.9 and Mild cognitive impairment G31.84 [place] [address] [address] [place] [id number] [address] [place] [id number] 26 Feb, 2020 Dysphagia, unspecified type R13.10 [place] [address] [facility] [id number] [address] [place] [phone] 25 Feb, 2020 Bipolar I disorder, most rec ent episode depressed, moderate F31.32 ; Anxiety F41.9 and Mild cognitive impairment G31.84 [place] [address] [facility] [id number] [address] [place] [phone] 24 Feb, 2020 [place] [address] [facility] [id number] [place] [phone] 24 Feb, 2020 Gastroesophageal reflux dise ase without esophagitis K21.9 [place] [id number] [address] [place] [phone] Feb, [place] [address] [facility] [id number] [address] [place] [id number] 18 Feb, 2020 Bipolar I disorder, most rec ent episode depressed, moderate F31.32 ; Anxiety F41.9 and Mild cognitive impairment G31.84 [place] [address] [address] [place] [id number] [address] [place] [id number] 17 Feb, 2020 Chronic pain G89.29 [place] [id number] [address] [place] [id number] Feb, Agitation R45.1 [place] [id number] [address] [place] [id number] 17 Feb, 2020 PVD (peripheral vascular dis ease) I73.9 ; Status post CVA Z86.73 ; Status post carotid endarterectomy Z98.890 ; Vertigo R42 ; Mild cognitive impairment G31.84 ; Type 2 diabetes mellitus with diabetic neuropathy, unspecified E11.40 and Essential hypertension I10 [id number] [place] [address] Feb, [facility] [address] [id number] [address] [place] [phone] Feb, [facility] [address] [id number] [address] [place] [address] January, [facility] [address] [facility] [id number] [address] [place] [address] January, Chronic pain G89.29 [facility] [address] [id number] [address] [place] [phone] Dec, [facility] [address] [id number] [address] [place] [id number] 17 Dec, 2019 Chronic pain G89.29 [facility] [address] [id number] [address] [place] [phone] Dec, [facility] [address] [facility] [id number] [address] [place] [phone] Dec, [facility] [address] [id number] [address] [place] [phone] Dec, Gastroesophageal reflux dise ase without esophagitis K21.9 and Pure hypercholesterolemia E78.00 [facility] [address] [id number] [address] [place] [phone] Dec, Mood disorder F39 [place] [address] [facility] [id number] [address] [place] [address] Nov, Other secondary acute gout, 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 [facility] [address] [id number] [address] [place] [address] Nov, Gastroesophageal reflux dise ase without esophagitis K21.9 [facility] [address] [facility] [id number] [address] [place] [address] Nov, Chronic pain G89.29 [facility] [address] [facility] [id number] [address] [place] [address] Nov, Bipolar I disorder, most rec ent episode depressed, moderate F31.32 ; Anxiety F41.9 and Mild cognitive impairment G31.84 [facility] [address] [id number] [address] [place] [phone] Nov, [facility] [address] [id number] [address] [place] [phone] Nov, Syncope, unspecified syncope type R55 [facility] [address] [id number] [address] [place] [id number] Nov, Mood disorder F39 [facility] [address] [id number] [address] [place] [address] Oct, Chronic pain G89.29 [facility] [address] [id number] [address] [place] [phone] Oct, [facility] [address] [facility] [id number] [address] [place] [phone] Oct, Mood disorder F39 [facility] [address] [id number] [address] [place] [phone] Oct, [facility] [address] [id number] [address] [place] [id number] Oct, Bipolar disorder, in partial remission, most recent episode depressed F31.75 and Mild cognitive impairment G31.84 [facility] [address] [id number] [address] [place] [phone] Oct, Mood disorder F39 [facility] [address] [id number] [address] [place] [phone] Sep, [facility] [address] [id number] [address] [place] [phone] Sep, Mood disorder F39 [facility] [address] [facility] [id number] [address] [place] [phone] Sep, Bipolar disorder, in partial remission, most recent episode depressed F31.75 and Mild cognitive impairment G31.84 [facility] [address] [id number] [address] [place] [phone] Sep, Mood disorder F39 [facility] [address] [id number] [address] [place] [phone] Sep, [facility] [address] [id number] [address] [place] [phone] Sep, Mood disorder F39 [facility] [address] [id number] [address] [place] [phone] Sep, [facility] [address] [id number] [address] [place] [phone] Aug, Mood disorder F39 [facility] [address] [id number] [address] [place] [phone] Aug, [facility] [address] [id number] [address] [place] [phone] Aug, [facility] [address] [id number] [address] [place] [phone] Aug, [facility] [address] [id number] [address] [place] [phone] Aug, [facility] [address] [id number] [address] [place] [phone] Aug, [facility] [address] [id number] [address] [place] [phone] Aug, [facility] [address] [id number] [address] [place] [phone] Aug, [facility] [address] [id number] [address] [place] [phone] Aug, Essential hypertension I10 [facility] [address] [id number] [address] [place] [phone] Aug, Bipolar disorder, in partial remission, most recent episode depressed F31.75 and Mild cognitive impairment G31.84 [facility] [address] [id number] [address] [place] [phone] Aug, Mood disorder F39 [facility] [address] [id number] [address] [place] [phone] Aug, [facility] [address] [id number] [address] [place] [address] Aug, Bipolar disorder, in partial remission, most recent episode depressed F31.75 and Mild cognitive impairment G31.84 [facility] [address] [id number] [address] [place] [address] Jul, Bipolar disorder, in partial remission, most recent episode depressed F31.75 and Mild cognitive impairment G31.84 [facility] [address] [id number] [address] [place] [id number] Jul, Psychophysiological insomnia F51.04 [facility] [address] [id number] [address] [place] [address] Jul, [facility] [address] [id number] [address] [place] [phone] Jul, [facility] [address] [id number] [address] [place] [phone] Jul, [facility] [address] [id number] [address] [place] [phone] Jul, [facility] [address] [id number] [address] [place] [phone] Jul, [facility] [address] [id number] [address] [place] [phone] Jul, [facility] [address] [id number] [address] [place] [id number] Jul, Bipolar disorder, in partial remission, most recent episode depressed F31.75 and Mild cognitive impairment G31.84 [facility] [address] [id number] [address] [place] [address] Jul, Chronic pain G89.29 ; Diabet es E11.9 ; Essential hypertension I10 ; Ill feeling R68.89 ; Local infection of the skin and subcutaneous tissue, unspecified L08.9 and Other injury of unspecified body region, initial encounter T14.8XXA [facility] [address] [id number] [address] [place] [address] Jun, Bipolar disorder, in partial remission, most recent episode depressed F31.75 and Mild cognitive impairment G31.84 [facility] [address] [id number] [address] [place] [address] Jun, [facility] [address] [id number] [address] [place] [phone] Jun, Bipolar disorder, in partial remission, most recent episode depressed F31.75 and Mild cognitive impairment G31.84 [place] [address] [id number] [address] [place] [address] Jun, Psychophysiological insomnia F51.04 [place] [address] 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 [id number] [address] [place] [phone] Jun, Bipolar disorder, in partial remission, most recent episode depressed F31.75 and Mild cognitive impairment G31.84 [facility] [address] [id number] [address] [place] [address] Jun, [facility] [address] [facility] [id number] [address] [place] [phone] Jun, Bipolar disorder F31.9 [facility] [address] [id number] [address] [place] [address] May, Bipolar disorder, in partial remission, most recent episode depressed F31.75 and Mild cognitive impairment G31.84 [facility] [address] [id number] [address] [place] [id number] 05 May, 2019 [facility] [address] [id number] [address] [place] [address] Apr, Chronic pain G89.29 and Bipo lar disorder F31.9 [facility] [address] [id number] [address] [place] [phone] Mar, Bipolar disorder F31.9 and C hronic pain G89.29 [facility] [address] [id number] [address] [place] [phone] Feb, Bipolar disorder F31.9 [facility] [address] [facility] [id number] [address] [place] [address] Feb, Cellulitis of right upper ex tremity L03.113 and Skin abrasion T14.8XXA [facility] [address] [facility] [id number] [address] [place] [address] Feb, Bipolar disorder, in partial remission, most recent episode depressed F31.75 and Mild cognitive impairment G31.84 [facility] [address] [facility] [id number] [address] [place] [address] Feb, Chronic pain G89.29 [facility] [address] [facility] [id number] [address] [place] [address] Feb, Bipolar disorder, in partial remission, most recent episode depressed F31.75 and Mild cognitive impairment G31.84 [facility] [address] [facility] [id number] [address] [place] [id number] January, Bipolar disorder, in partial remission, most recent episode depressed F31.75 and Mild cognitive impairment G31.84 [facility] [address] [facility] [id number] [address] [place] [address] January, Chronic pain G89.29 and Bipo lar disorder F31.9 [facility] [address] [facility] [id number] [address] [place] [phone] January, Bipolar disorder, in partial remission, most recent episode depressed F31.75 and Mild cognitive impairment G31.84 [facility] [address] [id number] [address] [place] [phone] Dec, [facility] [address] [id number] [address] [place] [address] Dec, Chronic pain G89.29 and Bipo lar disorder F31.9 [facility] [address] [id number] [address] [place] [address] Dec, Edema of both lower extremit ies R60.0 [facility] [address] [id number] [address] [place] [address] Dec, Bipolar disorder F31.9 [facility] [address] [facility] [id number] [address] [place] [address] Dec, Bipolar disorder, in partial remission, most recent episode depressed F31.75 and Mild cognitive impairment G31.84 [facility] [address] [id number] [address] [place] [phone] Nov, [facility] [address] [id number] [address] [place] [address] Nov, Chronic pain G89.29 [facility] [address] [id number] [address] [place] [address] Nov, Bipolar disorder, in partial remission, most recent episode depressed F31.75 and Mild cognitive impairment G31.84 [facility] [address] [id number] [address] [place] [phone] Nov, Bipolar disorder F31.9 [facility] [address] [facility] [id number] [address] [place] [address] 04 Nov, 2018 Encounter for Medicare annua [...] unspecified morphology N40.1 and Essential hypertension I10 [address] [address] Oct, Chronic pain G89.[address] [address] Oct, Diabetes E11.[address] [address] Oct, Bipolar I disorder, most rec ent episode (or current) mixed, moderate F31.62 and Mild cognitive impairment G31.[address] [address] Oct, Bipolar I disorder, most rec ent episode (or current) mixed, moderate F31.62 and Mild cognitive impairment G31.[address] [address] Sep, Bipolar I disorder, most rec ent episode (or current) mixed, moderate F31.62 and Mild cognitive impairment G31.[address] [address] Sep, [address] [address] Sep, Diabetes E11.9 ; Hypoxia R09 .02 ; Hyperglycemia R73.9 ; Therapeutic drug monitoring Z51.81 ; BMI 50.0-59.9, adult Z68.43 and Skin cancer C44.[address] [address] Sep, Chronic pain G89.[address] [address] Sep, Bipolar I disorder, most rec ent episode (or current) mixed, moderate F31.62 [facility] [address] [id number] [address] [place] [address] Sep, [facility] [address] [id number] [address] [place] [address] Sep, [facility] [address] [id number] [address] [place] [address] Aug, Chronic pain G89.29 [facility] [address] [id number] [address] [place] [address] Aug, Bipolar I disorder, most rec ent episode (or current) mixed, moderate F31.62 [facility] [address] [id number] [address] [place] [address] Aug, Bipolar I disorder, most rec ent episode (or current) mixed, moderate F31.62 and Mild cognitive impairment G31.84 [facility] [address] [id number] [address] [place] [address] Jul, [facility] [address] [id number] [address] [place] [address] Jul, Chronic pain G89.29 [facility] [address] [id number] [address] [place] [address] Jul, Bipolar I disorder, most rec ent episode (or current) mixed, moderate F31.62 and Mild cognitive impairment G31.84 [facility] [address] [id number] [address] [place] [address] Jul, Bipolar I disorder, most rec ent episode (or current) mixed, moderate F31.62 and MCI (mild cognitive impairment) G31.84 [facility] [address] [id number] [address] [place] [phone] Jul, [facility] [address] [id number] [address] [place] [phone] Jul, [facility] [address] [id number] [address] [place] [address] Jul, Bipolar I disorder, most rec ent episode (or current) mixed, moderate F31.62 [facility] [address] [facility] [id number] [address] [place] [address] Jul, Chronic pain G89.29 [facility] [address] [facility] [id number] [address] [place] [address] Jun, Bipolar I disorder, most rec ent episode (or current) mixed, moderate F31.62 [facility] [address] [facility] [id number] [address] [place] [id number] Jun, Pre-procedure lab exam Z01.8 12 [facility] [address] [facility] [id number] [place] [id number] Jun, [facility] [address] [facility] [id number] [address] [place] [phone] Jun, [facility] [address] [facility] [id number] [address] [place] [phone] Jun, [facility] [address] [facility] [id number] [address] [place] [address] Jun, Forgetfulness R68.89 ; Pre-s yncope R55 ; Localized edema R60.0 ; Other iron deficiency anemia D50.8 and BMI 50.0-59.9, adult Z68.43 [facility] [address] [facility] [id number] [address] [place] [address] Jun, Chronic pain G89.29 [facility] [address] [facility] [id number] [address] [place] [address] Jun, Chronic pain G89.29 [facility] [address] [facility] [id number] [address] [place] [address] Jun, Bipolar I disorder, most rec ent episode (or current) mixed, moderate F31.62 [facility] [address] [facility] [id number] [address] [place] [address] May, Chronic pain G89.29 [facility] [address] [place] [id number] [address] [place] [id number] Apr, [facility] [address] [place] [id number] [place] [phone] Apr, Chronic pain G89.29 [facility] [address] [place] [id number] [place] [phone] Apr, Primary osteoarthritis of ri ght knee M17.11 [place] [address] [place] [id number] [address] [place] [id number] Mar, [place] [address] [id number] Mar, BMI 50.0-59.9, adult Z68.43 and Bipolar disorder, in partial remission, most recent episode depressed F31.75 [place] [address] [address] Mar, Diabetes E11.9 ; Pure hyperc holesterolemia E78.00 ; Essential hypertension I10 ; Nausea with vomiting, unspecified R11.2 and Headache, unspecified headache type R51 [place] [address] [address] [place] [id number] [place] [address] Mar, Bipolar I disorder, most rec ent episode (or current) mixed, moderate F31.62 [place] [address] [address] [place] [id number] [address] [place] [address] Mar, Bipolar I disorder, most rec ent episode (or current) mixed, moderate F31.62 [place] [address] [place] [id number] [address] [place] [address] Mar, Chronic pain G89.29 [place] [address] [address] [place] [id number] [address] [place] [id number] Mar, Bipolar I disorder, most rec ent episode (or current) mixed, moderate F31.62 [place] [address] [place] [id number] [address] [place] [id number] 18 Feb, 2018 Bipolar I disorder, most rec ent episode (or current) mixed, moderate F31.62 [facility] [address] [id number] [address] [place] [id number] 14 Feb, 2018 Chronic pain G89.29 [facility] [address] [id number] [address] [place] [id number] 06 Feb, 2018 Decubitus ulcer of right josselin t, stage 3 L89.893 and BMI 50.0-59.9, adult Z68.43 [facility] [address] [id number] [address] [place] [address] Feb, Bipolar I disorder, most rec ent episode (or current) mixed, moderate F31.62 [facility] [address] [facility] [id number] [address] [place] [address] Feb, [place] [address] [facility] [id number] [address] [place] [address] January, [facility] [address] [id number] [address] [place] [address] January, Chronic pain G89.29 [facility] [address] [id number] [address] [place] [id number] January, Bipolar I disorder, most rec ent episode (or current) mixed, moderate F31.62 [place] [address] [facility] [id number] [address] [place] [address] January, Bipolar I disorder, most rec ent episode (or current) mixed, moderate F31.62 [place] [address] [id number] [address] [place] [address] Dec, Bipolar I disorder, most rec ent episode (or current) mixed, moderate F31.62 and BMI 50.0-59.9, adult Z68.43 [facility] [address] [id number] [address] [place] [address] Dec, Bipolar I disorder, most rec ent episode (or current) mixed, moderate F31.62 [place] [address] [place] [id number] [address] [place] [address] Dec, Chronic pain G89.29 [place] [address] [place] [id number] [address] [place] [id number] Dec, DM neuro manif type II E11.4 9 ; Right flank pain R10.9 ; shelter current use of opiate analgesic Z79.891 ; Encounter for medication monitoring Z51.81 and BMI 50.0-59.9, adult Z68.43 [place] [address] [place] [id number] [place] [address] Dec, Bipolar I disorder, most rec ent episode (or current) mixed, moderate F31.62 [place] [address] [place] [id number] [place] [address] Nov, Bipolar I disorder, most rec ent episode (or current) mixed, moderate F31.62 [place] [address] [place] [id number] [address] [place] [address] Nov, Chronic pain G89.29 [place] [address] [place] [id number] [address] [place] [id number] Nov, Bipolar I disorder, most rec ent episode (or current) mixed, moderate F31.62 [place] [address] [place] [id number] [address] [place] [address] Nov, Hypokalemia E87.6 [place] [address] [place] [id number] [address] [place] [id number] Nov, Bipolar I disorder, most rec ent episode (or current) mixed, moderate F31.62 [place] [address] [place] [id number] [place] [address] Oct, Chronic pain G89.29 [place] [address] [place] [id number] [address] [place] [address] Oct, BMI 50.0-59.9, adult Z68.43 and Bipolar I disorder, most recent episode (or current) mixed, moderate F31.62 [facility] [address] [facility] [id number] [address] [place] [id number] Oct, Bipolar I disorder, most rec ent episode (or current) mixed, moderate F31.62 [facility] [address] [facility] [id number] [address] [place] [address] Oct, [facility] [address] [place] [id number] [address] [place] [address] Oct, Hypokalemia E87.6 [facility] [address] [facility] [id number] [address] [place] [address] Oct, DM neuro manif type II E11.4 9 [facility] [address] [place] [id number] [address] [place] [address] Oct, Bipolar I disorder, most rec ent episode (or current) mixed, moderate F31.62 [facility] [address] [place] [id number] [address] [place] [address] Oct, Bipolar I disorder, most rec ent episode (or current) mixed, moderate F31.62 [place] [address] [facility] [id number] [address] [place] [address] Oct, Hyperkalemia E87.5 ; Falling R29.6 ; BMI 50.0-59.9, adult Z68.43 and Acute left ankle pain M25.572 [facility] [address] [facility] [id number] [address] [place] [address] Oct, DM neuro manif type II E11.4 9 [facility] [address] [facility] [id number] [address] [place] [address] Oct, [facility] [address] [place] [id number] [address] [place] [address] Sep, Chronic pain G89.29 [facility] [address] [place] [id number] [address] [place] [address] Sep, [place] [address] [place] [id number] [address] [place] [address] Sep, Bilateral primary osteoarthr itis of knee M17.0 [place] [address] [place] [id number] [address] [place] [address] Sep, Generalized edema R60.1 [place] [address] [place] [id number] [address] [place] [address] Sep, Bipolar I disorder, most rec ent episode (or current) mixed, moderate F31.62 [place] [address] [place] [id number] [address] [place] [address] 15 Sep, 2017 Hypoxia R09.02 ; Other hyper volemia E87.79 ; Diabetes E11.9 ; Retinal edema H35.81 ; Hypokalemia E87.6 ; 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 ; Anemia of chronic illness D63.8 and BMI 50.0- 59.9, adult Z68.43 [place] [id number] [place] [address] Sep, [place] [address] [address] Sep, Bipolar I disorder, most rec ent episode (or current) mixed, moderate F31.62 [place] [id number] [place] [address] Aug, Chronic pain G89.29 [place] [address] [place] [id number] [address] [place] [address] Aug, Generalized edema R60.1 [place] [address] [place] [id number] [address] [place] [address] Aug, [place] [address] [place] [id number] [address] [place] [address] Aug, [place] [address] [place] [id number] [address] [place] [address] Aug, Bipolar I disorder, most rec ent episode (or current) mixed, moderate F31.62 [facility] [address] [facility] [id number] [address] [place] [address] Aug, Bipolar I disorder, most rec ent episode (or current) mixed, moderate F31.62 [place] [address] [facility] [id number] [address] [place] [address] Aug, Chronic pain G89.29 [place] [address] [facility] [id number] [address] [place] [id number] Jul, Bipolar I disorder, most rec ent episode (or current) mixed, moderate F31.62 [place] [address] [facility] [id number] [address] [place], [place] [address] Jul, Bipolar I disorder, most rec ent episode (or current) mixed, moderate F31.62 and BMI 60.0-69.9, adult Z68.44 [place] [address] [place] [id number] [address] [place] [address] Jul, Bipolar I disorder, most rec ent episode (or current) mixed, moderate F31.62 [place] [address] [place] [id number] [address] [place] [address] Jul, Chronic pain G89.29 [place] [address] [place] [id number] [address] [place] [address] Jul, Bipolar I disorder, most rec ent episode (or current) mixed, moderate F31.62 [place] [address] [place] [id number] [address] [place] [address] Jun, Polyneuropathy associated wi th underlying disease G63 and Diabetes E11.9 [place] [address] [facility] [id number] [address] [place] [address] Jun, Bipolar I disorder, most rec ent episode (or current) mixed, moderate F31.62 [place] [address] [facility] [id number] [address] [place] [address] Jun, Chronic pain G89.29 [place] [address] [id number] [address] [place] [phone] 27 May, 2017 Bipolar I disorder, most rec ent episode (or current) mixed, moderate F31.62 [facility] [address] [id number] [address] [place] [address] May, Bipolar I disorder, most rec ent episode (or current) mixed, moderate F31.62 [facility] [address] [id number] [address] [place] [address] May, Diabetic polyneuropathy asso ciated with type 2 diabetes mellitus E11.42 [facility] [address] [id number] [address] [place] [phone] 18 May, 2017 Bipolar I disorder, most rec ent episode (or current) mixed, moderate F31.62 [facility] [address] [facility] [id number] [address] [place] [address] May, Bipolar I disorder, most rec ent episode (or current) mixed, moderate F31.62 [facility] [address] [facility] [id number] [address] [place] [address] May, Chronic pain G89.29 [facility] [address] [facility] [id number] [address] [place] [address] Apr, Bipolar I disorder, most rec ent episode (or current) mixed, moderate F31.62 [facility] [address] [facility] [id number] [address] [place] [address] Apr, [facility] [address] [id number] [address] [place] [phone] Apr, Chronic pain G89.29 and DM n euro manif type II E11.49 [facility] [address] [id number] [address] [place] [address] Apr, [facility] [address] [facility] [id number] [address] [place] [phone] Apr, Bipolar I disorder, most rec ent episode (or current) mixed, moderate F31.62 [facility] [address] [id number] [address] [place] [address] Apr, Chronic pain G89.29 [facility] [address] [id number] [address] [place] [address] Apr, Iliotibial band syndrome, le ft M76.32 [facility] [address] [id number] [address] [place] [address] Apr, Bipolar I disorder, most rec ent episode (or current) mixed, moderate F31.62 [facility] [address] [id number] [address] [place] [address] Mar, Bipolar I disorder, most rec ent episode (or current) mixed, moderate F31.62 [facility] [address] [id number] [address] [place] [address] Mar, Bipolar I disorder, most rec ent episode (or current) mixed, moderate F31.62 [facility] [address] [id number] [address] [place] [phone] Mar, [facility] [address] [id number] [address] [place] [id number] Mar, Bipolar I disorder, most rec ent episode (or current) mixed, moderate F31.62 [facility] [address] [id number] [address] [place] [phone] Mar, Chronic pain G89.29 [facility] [address] [id number] [address] [place] [phone] Mar, Bipolar I disorder, most rec ent episode (or current) mixed, moderate F31.62 [facility] [address] [id number] [address] [place] [phone] Mar, Bipolar I disorder, most rec ent episode (or current) mixed, moderate F31.62 [facility] [address] [facility] [id number] [address] [place] [address] Mar, Acute pain of left knee M25. 562 ; Left hip pain M25.552 ; Generalized edema R60.1 and Tongue swelling R22.0 [facility] [address] [facility] [id number] [address] [place] [address] Mar, [facility] [address] [facility] [id number] [address] [place] [address] Feb, Chronic pain G89.29 [facility] [address] [facility] [id number] [address] [place] [address] Feb, Diabetes E11.9 [facility] [address] [id number] [address] [place] [phone] January, Chronic pain G89.29 [facility] [address] [facility] [id number] [address] [place] [phone] January, [facility] [address] [facility] [id number] [address] [place] [address] January, Bipolar I disorder, most rec ent episode (or current) mixed, moderate F31.62 [facility] [address] [facility] [id number] [address] [place] [phone] Dec, Bipolar I disorder, most rec ent episode (or current) mixed, moderate F31.62 [facility] [address] [facility] [id number] [address] [place] [address] Dec, Chronic pain G89.29 [facility] [address] [facility] [id number] [address] [place] [address] Dec, Bipolar I disorder, most rec ent episode (or current) mixed, moderate F31.62 [facility] [address] [facility] [id number] [address] [place] [address] Dec, Diabetes E11.9 ; Essential h ypertension I10 ; Chronic pain G89.29 and Morbid obesity E66.01 [facility] [address] [facility] [id number] [address] [place] [address] Dec, [facility] [address] [facility] [id number] [address] [place] [phone] Dec, Bipolar I disorder, most rec ent episode (or current) mixed, moderate F31.62 [facility] [address] [id number] [address] [place] [phone] Dec, Bipolar I disorder, most rec ent episode (or current) mixed, moderate F31.62 [facility] [address] [id number] [address] [place] [address] Nov, Chronic pain G89.29 [facility] [address] [id number] [address] [place] [phone] Nov, Bipolar I disorder, most rec ent episode (or current) mixed, moderate F31.62 [facility] [address] [facility] [id number] [address] [place] [address] Nov, [facility] [address] [facility] [id number] [address] [place] [address] Nov, Bipolar I disorder, most rec ent episode (or current) mixed, moderate F31.62 [facility] [address] [id number] [address] [place] [address] Nov, Bipolar I disorder, most rec ent episode (or current) mixed, moderate F31.62 [facility] [address] [facility] [id number] [address] [place] [address] Nov, [facility] [address] [facility] [id number] [address] [place] [phone] Nov, [facility] [address] [id number] [address] [place] [phone] Nov, [facility] [address] [id number] [address] [place] [phone] Oct, Chronic pain G89.29 [facility] [address] [id number] [address] [place] [id number] Oct, Bipolar I disorder, most rec ent episode (or current) mixed, moderate F31.62 [facility] [address] [facility] [id number] [address] [place] [id number] Oct, [facility] [address] 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 [id number] [address] [place] [address] Oct, [facility] [address] [facility] [id number] [address] [place] [phone] Oct, Diabetes E11.9 [facility] [address] [facility] [id number] [address] [place] [address] Oct, Bipolar I disorder, most rec ent episode (or current) mixed, moderate F31.62 [facility] [address] [facility] [id number] [address] [place] [address] Sep, Chronic pain G89.29 [facility] [address] [facility] [id number] [address] [place] [address] Sep, Chronic pain G89.29 [facility] [address] [facility] [id number] [address] [place] [address] Aug, Chronic pain G89.29 [facility] [address] [facility] [id number] [address] [place] [address] Jul, [facility] [address] [facility] [id number] [address] [place] [address] Jul, Diabetes E11.9 [facility] [address] [facility] [id number] [address] [place] [address] Jul, Chronic pain G89.29 [facility] [address] [facility] [id number] [address] [place] [address] Jul, Bipolar I disorder, most rec ent episode (or current) mixed, moderate F31.62 [facility] [address] [facility] [id number] [address] [place] [phone] Jun, Bipolar I disorder, most rec ent episode (or current) mixed, moderate F31.62 [facility] [address] [facility] [id number] [address] [place] [address] Jun, [facility] [address] [facility] [id number] [address] [place] [address] Jun, Bipolar I disorder, most rec ent episode (or current) mixed, moderate F31.62 [facility] [address] [facility] [id number] [address] [place] [address] May, Insomnia, unspecified type G 47.00 [facility] [address] [facility] [id number] [address] [place] [address] May, Bipolar I disorder, most rec ent episode (or current) mixed, moderate F31.62 [place] [address] [place] [id number] [address] [place] [address] May, [facility] [address] [place] [id number] [address] [place] [address] May, Bipolar I disorder, most rec ent episode (or current) mixed, moderate F31.62 [facility] [address] [place] [id number] [address] [place] [address] May, Diabetes E11.9 and Essential hypertension I10 [facility] [address] [place] [id number] [address] [place] [address] Apr, Chronic pain G89.29 [facility] [address] [facility] [id number] [address] [place] [address] Apr, Bipolar I disorder, most rec ent episode (or current) mixed, moderate F31.62 [facility] [address] [facility] [id number] [address] [place] [address] Apr, [facility] [address] [facility] [id number] [address] [place] [phone] Apr, [facility] [address] [place] [id number] [address] [place] [address] Mar, Chronic pain G89.29 ; Headac he, unspecified headache type R51 ; Neuropathy G62.9 ; Pain of right hip joint M25.551 and Essential hypertension I10 [facility] [address] [facility] [id number] [address] [place] [address] Mar, Chronic pain G89.29 [place] [address] [facility] [id number] [address] [place] [address] Mar, Bipolar I disorder, most rec ent episode (or current) mixed, moderate F31.62 [place] [address] [place] [id number] [address] [place] [address] Feb, Bipolar I disorder, most rec ent episode (or current) mixed, moderate F31.62 and Insomnia, unspecified type G47.00 [place] [address] [address] [place] [id number] [address] [place] [phone] Feb, Chronic pain G89.29 [place] [address] [facility] [id number] [address] [place] [phone] Feb, Bipolar I disorder, most rec ent episode (or current) mixed, moderate F31.62 [place] [address] [facility] [id number] [address] [place] [phone] January, Bipolar I disorder, most rec ent episode (or current) mixed, moderate F31.62 [place] [address] [facility] [id number] [address] [place] [phone] January, Chronic pain G89.29 [place] [address] [facility] [id number] [address] [place] [phone] January, Chronic pain G89.29 and Esse ntial hypertension I10 [place] [address] [facility] [id number] [address] [place] [id number] January, Bipolar I disorder, most rec ent episode (or current) mixed, moderate F31.62 [place] [address] [facility] [id number] [address] [place] [phone] Dec, [facility] [address] [facility] [id number] [address] [place] [phone] Dec, [facility] [address] [facility] [id number] [address] [place] [phone] Dec, [facility] [address] [facility] [id number] [address] [place] [phone] Dec, [facility] [address] [place] [id number] [place] [phone] Nov, Reactive airway disease J45. 909 [facility] [address] [place] [id number] [place] [phone] Nov, [facility] [address] [facility] [id number] [place] [phone] Nov, [facility] [address] [phone] Nov, [facility] [address] [place] [id number] [address] [place] [address] Nov, [facility] [address] [address] Nov, Onychomycosis B35.1 ; Hammer toe M20.40 ; [place] or callus L84 and DM neuro manif type II E11.49 [facility] [address] [address] Nov, Chronic pain G89.29 ; Leukoc ytosis D72.829 and Diabetes E11.9 [facility] [address] [id number] [address] [place] [address] Nov, [facility] [id number] [place] [address] Oct, Bronchitis J40 [facility] [address] [address] Oct, [facility] [address] [id number] [address] [place] [address] Oct, [facility] [id number] [place] [address] Oct, Mastoiditis, unspecified lat erality H70.90 and Type 2 diabetes mellitus with complication E11.8 [place] [address] [id number] [address] [place] [address] Sep, [facility] [id number] [place] [address] Sep, Dysuria R30.0 ; Cough R05 ; Benign prostatic hyperplasia with lower urinary tract symptoms, unspecified morphology N40.1 ; Hypokalemia E87.6 and Eustachian tube dysfunction, unspecified laterality H69.80 [place] [address] [address] Sep, Moderate mixed bipolar I dis order F31.62 [place] [address] [address] Sep, Hypokalemia E87.6 [place] [id number] [place] [address] Sep, [place] [id number] [place] [address] Sep, Upper respiratory tract infe ction, unspecified type J06.9 [place] [address] [id number] [address] [place] [address] Aug, [place] [address] [id number] [address] [place] [address] Aug, Dysuria R30.0 [facility] [address] [id number] [address] [place] [address] Aug, [facility] [address] [id number] [address] [place] [address] Jul, [facility] [address] [id number] [address] [place] [address] Jul, [facility] [address] [id number] [address] [place] [address] Jul, [facility] [address] [id number] [address] [place] [address] Jul, [facility] [address] [id number] [address] [place] [address] Jun, [facility] [address] [id number] [address] [place] [address] Jun, [facility] [address] [id number] [address] [place] [address] Jun, [facility] [address] [id number] [address] [place] [address] May, [facility] [address] [id number] [address] [place] [address] May, Bipolar I disorder, most rec ent episode (or current) mixed, moderate 296.62 [facility] [address] [id number] [address] [place] [address] May, [facility] [address] [id number] [address] [place] [address] May, Bipolar I disorder, most rec ent episode (or current) mixed, moderate 296.62 and Major depressive disorder, recurrent episode, severe, specified as with psychotic behavior 296.34 [facility] [address] [id number] [address] [place] [address] May, Bipolar I disorder, most rec ent episode (or current) mixed, moderate 296.62 [facility] [address] [id number] [address] [place] [address] May, [facility] [address] [facility] [id number] [address] [place] [address] Apr, [facility] [address] [id number] [address] [place] [address] Apr, [facility] [address] [facility] [id number] [address] [place] [address] Apr, Unspecified disorder of kidn ey and ureter 593.9 and Diabetes mellitus type 2, uncontrolled 250.02 [facility] [address] [facility] [id number] [address] [place] [address] Apr, [facility] [address] [facility] [id number] [address] [place] [address] Apr, [facility] [address] [facility] [id number] [address] [place] [address] Apr, [facility] [address] [facility] [id number] [address] [place] [address] Apr, [facility] [address] [id number] [address] [place] [address] Apr, Diabetes mellitus type II, u ncontrolled 250.02 [facility] [address] [facility] [id number] [address] [place] [address] Apr, [facility] [address] [id number] [address] [place] [address] Mar, [facility] [address] [facility] [id number] [address] [place] [address] Mar, [facility] [address] [id number] [address] [place] [address] Mar, [facility] [address] [facility] [id number] [address] [place] [address] Mar, Major depressive disorder, r ecurrent episode, severe, specified as with psychotic behavior 296.34 and Bipolar I disorder, most recent episode (or current) mixed, moderate 296.62 [facility] [address] [facility] [id number] [address] [place] [address] Mar, Diabetes 250.00 ; Anuria 788 .5 ; Nausea and vomiting 787.01 and Diarrhea 787.91 [facility] [address] [id number] [address] [place] [address] Mar, Diabetes 250.00 [facility] [address] [address] Mar, [facility] [address] [id number] [address] [place] [address] Mar, Diabetes 250.00 [facility] [address] [address] Mar, [facility] [id number] [place] [address] Mar, [facility] [address] [address] Mar, [facility] [address] [address] Mar, [facility] [address] [id number] [address] [place] [address] Mar, Bipolar I disorder, most rec ent episode (or current) mixed, moderate 296.62 and Major depressive disorder, recurrent episode, severe, specified as with psychotic behavior 296.34 [facility] [address] [id number] [address] [place] [address] Mar, Magnesium deficiency 275.2 ; Hypokalemia 276.8 ; Nausea & vomiting 787.01 and Diabetes mellitus type 2, uncontrolled 250.02 [facility] [address] [id number] [address] [place] [address] Feb, [facility] [address] [address] Feb, Bipolar I disorder, most rec ent episode (or current) mixed, moderate 296.62 [facility] [address] [id number] [address] [place] [address] Feb, Nausea and vomiting 787.01 ; Left elbow pain 719.42 ; Anuria 788.5 and Diabetes 250.00 [facility] [address] [facility] [id number] [address] [place] [address] Feb, [facility] [address] [id number] [address] [place] [address] Feb, Hypopotassemia 276.8 and Hyp okalemia 276.8 [facility] [address] [facility] [id number] [address] [place] [address] Feb, Hypopotassemia 276.8 and Hyp okalemia 276.8 [facility] [address] [facility] [id number] [address] [place] [address] Feb, Seborrheic keratoses 702.19 [facility] [address] [facility] [id number] [address] [place] [address] Feb, Hypopotassemia 276.8 and Low magnesium levels 275.2 [facility] [address] [facility] [id number] [address] [place] [address] January, [facility] [address] [facility] [id number] [address] [place] [address] January, [facility] [address] [facility] [id number] [address] [place] [address] January, [facility] [address] [facility] [id number] [address] [place] [address] January, Scalp lesion 709.9 [facility] [address] [facility] [id number] [address] [place] [address] January, [facility] [address] [facility] [id number] [address] [place] [address] Dec, Tear of medial cartilage or meniscus of knee, current 836.0 and Chondromalacia 733.92 [facility] [address] [facility] [id number] [address] [place] [address] Dec, [facility] [address] 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 [facility] [address] [id number] [address] [place] [address], [place] [address] 14 Dec, 2014 [facility] [address] [id number] [address] [place] [address], [place] [address] Dec, [facility] [address] [id number] [address] [place] [address], [place] [address] Nov, [facility] [address] [id number] [address] [place] [address], [place] [address] Nov, [facility] [address] [id number] [address] [place] [address], [place] [address] Nov, [facility] [address] [id number] [address] [place] [address], [place] [address] Nov, [facility] [address] [id number] [address] [place] [address], [place] [address] Nov, [facility] [address] [id number] [address] [place] [address], [place] [address] Nov, [facility] [address] [id number] [address] [place] [address], [place] [address] Nov, [facility] [address] [id number] [address] [place] [address], [place] [address] Nov, [facility] [address] [id number] [address] [place] [address], [place] [address] Nov, [facility] [address] [id number] [address] [place] [address], [place] [address] Nov, [facility] [address] [id number] [address] [place] [address], [place] [address] Nov, [facility] [address] [id number] [address] [place] [address], [place] [address] Nov, [facility] [address] [id number] [address] [place] [address], [place] [address] Oct, 2014 [facility] [address] [id number] [address] [place] [address], [place] [address] Oct, 2014 [facility] [address] [id number] [address] [place] [address], [place] [address] Oct, 2014 [facility] [address] [id number] [address] [place] [address], [place] [address] Oct, 2014 [facility] [address] [id number] [address] [place] [address], [place] [address] Oct, 2014 [facility] [address] [id number] [address] [place] [address], [place] [address] Oct, 2014 [facility] [address] [id number] [address] [place] [address], [place] [address] Oct, 2014 [facility] [address] [id number] [address] [place] [address], [place] [address] Oct, [facility] [address] [id number] [address] [place] [address], [place] [address] Oct, [facility] [address] [id number] [address] [place] [address] Sep, [facility] [address] [id number] [address] [place] [address] Sep, [facility] [address] [id number] [address] [place] [address] Sep, [facility] [address] [id number] [address] [place] [address] Sep, [facility] [address] [id number] [address] [place] [address], [place] [address] Sep, [facility] [address] [id number] [address] [place] [address] Sep, [facility] [address] [id number] [address] [place] [address] Sep, [facility] [address] [id number] [address] [place] [address], [place] [address] Sep, [facility] [address] [id number] [address] [place] [address], [place] [address] Sep, [facility] [address] [id number] [address] [place] [address], [place] [address] Sep, [facility] [address] [id number] [address] [place] [address], [place] [address] Sep, [facility] [address] [id number] [address] [place] [address], [place] [address] Sep, [facility] [address] [id number] [address] [place] [address], [place] [address] Sep, [facility] [address] [id number] [address] [place] [address], [place] [address] Sep, [facility] [address] [id number] [address] [place] [address], [place] [address] Sep, [facility] [address] [id number] [address] [place] [address], [place] [address] Sep, [facility] [address] [id number] [address] [place] [address], [place] [address] Aug, [facility] [address] [id number] [address] [place] [address], [place] [address] Aug, [facility] [address] [id number] [address] [place] [address], [place] [address] Aug, [facility] [address] [id number] [address] [place] [address], [place] [address] Aug, [facility] [address] [id number] [address] [place] [address], [place] [address] Aug, [facility] [address] [id number] [address] [place] [address], [place] [address] Aug, [facility] [address] [id number] [facility] [place] [address] Aug, [facility] [address] [id number] [facility] [place] [address] Aug, [facility] [address] [id number] [facility] [place] [address] Aug, [facility] [address] [id number] [address] [place] [address], [place] [address] Aug, [facility] [address] [id number] [address] [place] [address], [place] [address] Aug, [facility] [place] [address] [place] [id number] Aug, [facility] [address] [id number] [address] [place] [address], [place] [address] Aug, [facility] [address] [id number] [address] [place] [address], [place] [address] Aug, [facility] [address] [id number] [address] [place] [address], [place] [address] Aug, [facility] [address] [id number] [address] [place] [address], [place] [address] Aug, [facility] [address] [id number] [address] [place] [address], [place] [address] Aug, [facility] [address] [id number] [address] [place] [address], [place] [address] Aug, [facility] [address] [id number] [address] [place] [address], [place] [address] Aug, [facility] [address] [id number] [address] [place] [address], [place] [address] Aug, [facility] [address] [id number] [address] [place] [address], [place] [address] Aug, [facility] [address] [id number] [address] [place] [address], [place] [address] Aug, [facility] [address] [id number] [address] [place] [address], [place] [address] Aug, [facility] [address] [id number] [address] [place] [address], [place] [address] Aug, [facility] [address] [id number] [address] [place] [address], [place] [address] Aug, [facility] [address] [id number] [address] [place] [address], [place] [address] Aug, [facility] [address] [id number] [address] [place] [address], [place] [address] Aug, [facility] [address] [id number] [address] [place] [address], [place] [address] Aug, [facility] [address] [id number] [address] [place] [address], [place] [address] Aug, [facility] [address] [id number] [address] [place] [address], [place] [address] Aug, [facility] [address] [id number] [address] [place] [address], [place] [address] Jul, [facility] [address] [id number] [address] [place] [address], [place] [address] Jul, [facility] [address] [id number] [address] [place] [address], [place] [address] Jul, [facility] [address] [id number] [address] [place] [address], [place] [address] Jul, [facility] [address] [id number] [address] [place] [address], [place] [address] Jul, [facility] [address] [id number] [address] [place] [address], [place] [address] Jul, [facility] [address] [id number] [address] [place] [address], [place] [address] Jul, [facility] [address] [id number] [address] [place] [address], [place] [address] Jul, [facility] [address] [id number] [address] [place] [address], [place] [address] Jul, [facility] [address] [id number] [address] [place] [address], [place] [address] Jul, [facility] [address] [id number] [address] [place] [address], [place] [address] Jun, [facility] [address] [id number] [address] [place] [address], [place] [address] Jun, [facility] [address] [id number] [address] [place] [address], [place] [address] Jun, [facility] [address] [id number] [address] [place] [address], [place] [address] Jun, [facility] [address] [id number] [address] [place] [address], [place] [address] Jun, [facility] [address] [id number] [address] [place] [address], [place] [address] Jun, [facility] [address] [id number] [address] [place] [address], [place] [address] Jun, [facility] [address] [id number] [address] [place] [address], [place] [address] Jun, [facility] [address] [id number] [address] [place] [address], [place] [address] Jun, [facility] [address] [id number] [address] [place] [address], [place] [address] Jun, [facility] [address] [id number] [address] [place] [address], [place] [address] 29 May, 2014 [facility] [address] [id number] [address] [place] [address], [place] [address] 29 May, 2014 [facility] [address] [id number] [address] [place] [address], [place] [address] May, [facility] [address] [id number] [facility] [place] [address] 26 Sep, 2013 [facility] [address] [id number] [facility] [place] [address] 17 Sep, 2013 [facility] [address] [id number] [facility] [place] [address] 17 May, 2013 [facility] [address] [id number] [address] [place] [address], [place] [address] 15 May, 2013 [facility] [address] [id number] [address] [place] [address], [place] [address] 15 May, 2013 [facility] [address] [id number] [address] [place] [address], [place] [address] 15 May, 2013 [facility] [address] [id number] [address] [place] [address], [place] [address] 15 May, 2013 [facility] [address] [id number] [address] [place] [address], [place] [address] 10 May, 2013 [facility] [address] [id number] [address] [place] [address], [place] [address] 10 May, 2013 [facility] [address] [id number] [address] [place] [address], [place] [address] 09 May, 2013 [facility] [address] [id number] [address] [place] [address], [place] [address] 09 May, 2013 [facility] [address] [id number] [address] [place] [address], [place] [address] 04 May, 2013 [facility] [address] [id number] [address] [place] [address], [place] [address] May, 2013 [facility] [address] [id number] [address] [place] [address], [place] [address] Apr, [facility] [address] [id number] [address] [place] [address], [place] [address] Apr, [facility] [address] [id number] [address] [place] [address], [place] [address] Apr, [facility] [address] [id number] [facility] [place] [address] Apr, [facility] [address] [id number] [address] [place] [address], [place] [address] Apr, [facility] [address] [id number] [address] [place] [address], [place] [address] Apr, [facility] [address] [id number] [address] [place] [address], [place] [address] Apr, [facility] [address] [id number] [address] [place] [address], [place] [address] Apr, [facility] [address] [id number] [address] [place] [address], [place] [address] Apr, [facility] [address] [id number] [address] [place] [address], [place] [address] Apr, [facility] [address] [id number] [address] [place] [address], [place] [address] Apr, [facility] [address] [id number] [address] [place] [address], [place] [address] Apr, [facility] [address] [id number] [address] [place] [address], [place] [address] Apr, [facility] [address] [id number] [address] [place] [address], [place] [address] Apr, [facility] [address] [id number] [address] [place] [address], [place] [address] Apr, [facility] [address] [id number] [address] [place] [address], [place] [address] Mar, [facility] [address] [id number] [address] [place] [address], [place] [address] Mar, [facility] [address] [id number] [address] [place] [address], [place] [address] Mar, [facility] [address] [id number] [address] [place] [address], [place] [address] Mar, 2013 [facility] [address] [id number] [address] [place] [address] Mar, 2013 [facility] [address] [id number] [address] [place] [address], [place] [address] Mar, 2013 [facility] [address] [id number] [address] [place] [address], [place] [address] Mar, 2013 [facility] [address] [id number] [address] [place] [address], [place] [address] Mar, 2013 [facility] [address] [id number] [address] [place] [address], [place] [address] Mar, 2013 [facility] [address] [id number] [address] [place] [address], [place] [address] Mar, 2013 [facility] [address] [id number] [address] [place] [address], [place] [address] Mar, 2013 [facility] [address] [id number] [address] [place] [address], [place] [address] Mar, 2013 [facility] [address] [id number] [address] [place] [address], [place] [address] Mar, 2013 [facility] [address] [id number] [address] [place] [address], [place] [address] Mar, 2013 [facility] [address] [id number] [address] [place] [address], [place] [address] Mar, 2013 [facility] [address] [id number] [address] [place] [address], [place] [address] Mar, 2013 [facility] [address] [id number] [address] [place] [address], [place] [address] Mar, 2013 [facility] [address] [id number] [address] [place] [address], [place] [address] Mar, 2013 [facility] [address] [id number] [address] [place] [address], [place] [address] Feb, [facility] [address] [id number] [facility] [place] [address] Feb, [facility] [address] [id number] [facility] [place] [address] Feb, [facility] [address] [id number] [facility] [place] [address] Feb, [facility] [address] [id number] [facility] [place] [address] Feb, [facility] [address] [id number] [facility] [place] [address] Feb, [facility] [address] [id number] [facility] [place] [address] Feb, [facility] [address] [id number] [address] [place] [address], [place] [address] Feb, [facility] [address] [id number] [address] [place] [address], [place] [address] Feb, [facility] [address] [id number] [address] [place] [address], [place] [address] Feb, [facility] [address] [id number] [address] [place] [address], [place] [address] Feb, [facility] [address] [id number] [address] [place] [address], [place] [address] Feb, [facility] [address] [id number] [address] [place] [address], [place] [address] Feb, [facility] [address] [id number] [address] [place] [address], [place] [address] Feb, [facility] [address] [id number] [address] [place] [address], [place] [address] January, [facility] [address] [id number] [facility] [place] [address] January, [facility] [address] [id number] [address] [place] [address], [place] [address] January, [facility] [address] [id number] [facility] [place] [address] January, [facility] [address] [id number] [facility] [place] [address] January, [facility] [address] [id number] [facility] [place] [address] January, [facility] [address] [id number] [address] [place] [address], [place] [address] January, [facility] [address] [id number] [address] [place] [address], [place] [address] January, [facility] [address] [id number] [address] [place] [address], [place] [address] January, [facility] [address] [id number] [address] [place] [address], [place] [address] January, [facility] [address] [id number] [address] [place] [address], [place] [address] January, [facility] [address] [id number] [address] [place] [address], [place] [address] January, [facility] [address] [id number] [address] [place] [address], [place] [address] January, [facility] [address] [id number] [address] [place] [address], [place] [address] January, [facility] [address] [id number] [address] [place] [address], [place] [address] Dec, [facility] [address] [id number] [address] [place] [address], [place] [address] Dec, [facility] [address] [id number] [address] [place] [address], [place] [address] Dec, [facility] [address] [id number] [address] [place] [address], [place] [address] Dec, [facility] [address] [id number] [facility] [place] [address] Dec, [facility] [address] [id number] [facility] [place] [address] Dec, [facility] [address] [id number] [facility] [place] [address] Dec, [facility] [address] [id number] [address] [place] [address], [place] [address] Dec, [facility] [address] [id number] [address] [place] [address], [place] [address] Dec, [facility] [address] [id number] [address] [place] [address], [place] [address] Dec, [facility] [address] [id number] [address] [place] [address], [place] [address] Nov, [facility] [address] [id number] [address] [place] [address], [place] [address] Nov, [facility] [address] [id number] [address] [place] [address], [place] [address] Nov, [facility] [address] [id number] [address] [place] [address], [place] [address] Nov, [facility] [address] [id number] [address] [place] [address], [place] [address] Nov, [facility] [address] [id number] [address] [place] [address], [place] [address] Nov, [facility] [address] [id number] [address] [place] [address], [place] [address] Nov, [facility] [address] [id number] [address] [place] [address], [place] [address] Nov, [facility] [address] [id number] [address] [place] [address], [place] [address] Nov, [facility] [address] [id number] [address] [place] [address], [place] [address] Nov, [facility] [address] [id number] [facility] [place] [address] Oct, [facility] [address] [id number] [address] [place] [address], [place] [address] Oct, [facility] [address] [id number] [address] [place] [address], [place] [address] Oct, [facility] [address] [id number] [address] [place] [address], [place] [address] Oct, [facility] [address] [id number] [address] [place] [address], [place] [address] Oct, [facility] [address] [id number] [address] [place] [address], [place] [address] Oct, [facility] [address] [id number] [address] [place] [address], [place] [address] Oct, [facility] [address] [id number] [address] [place] [address], [place] [address] Oct, [facility] [address] [id number] [address] [place] [address], [place] [address] Oct, [facility] [address] [id number] [address] [place] [address], [place] [address] Oct, [facility] [address] [id number] [address] [place] [address], [place] [address] Oct, [facility] [address] [id number] [address] [place] [address], [place] [address] Oct, [facility] [address] [id number] [address] [place] [address], [place] [address] Oct, [facility] [address] [id number] [address] [place] [address], [place] [address] Oct, [facility] [address] [id number] [address] [place] [address], [place] [address] Sep, [facility] [address] [id number] [address] [place] [address], [place] [address] Sep, [facility] [address] [id number] [address] [place] [address], [place] [address] 15 Sep, 2013 [facility] [address] [id number] [address] [place] [address], [place] [address] 15 Sep, 2013 [facility] [address] [id number] [address] [place] [address], [place] [address] Sep, [facility] [address] [id number] [address] [place] [address], [place] [address] Sep, [facility] [address] [id number] [address] [place] [address], [place] [address] Sep, [facility] [address] [id number] [address] [place] [address], [place] [address] Sep, [facility] [address] [id number] [address] [place] [address], [place] [address] Sep, [facility] [address] [id number] [address] [place] [address], [place] [address] Sep, [facility] [address] [id number] [address] [place] [address], [place] [address] Aug, [facility] [address] [id number] [address] [place] [address], [place] [address] Aug, [facility] [address] [id number] [address] [place] [address], [place] [address] Jul, [facility] [address] [id number] [address] [place] [address], [place] [address] Jul, [facility] [address] [id number] [address] [place] [address], [place] [address] Jul, [facility] [address] [id number] [address] [place] [address], [place] [address] Jul, [facility] [address] [id number] [address] [place] [address], [place] [address] Jul, [facility] [address] [id number] [address] [place] [address], [place] [address] Jul, [facility] [address] [id number] [address] [place] [address], [place] [address] Jul, [facility] [address] [id number] [address] [place] [address], [place] [address] Jul, [facility] [address] [id number] [address] [place] [address], [place] [address] Jul, [facility] [address] [id number] [address] [place] [address], [place] [address] Jul, [facility] [address] [id number] [address] [place] [address], [place] [address] Jul, [facility] [address] [id number] [address] [place] [address], [place] [address] Jul, [facility] [address] [id number] [address] [place] [address] Jul, [facility] [address] [id number] [address] [place] [address], [place] [address] Jul, [facility] [address] [id number] [address] [place] [address] Jul, [facility] [address] [id number] [address] [place] [address] Jul, [facility] [address] [id number] [address] [place] [address] Jul, [facility] [address] [id number] [address] [place] [address], [place] [address] Jul, [facility] [address] [id number] [address] [place] [address] Jul, [facility] [address] [id number] [address] [place] [address], [place] [address] Jun, [facility] [address] [id number] [address] [place] [address], [place] [address] 16 Jun, 2012 [facility] [address] [id number] [address] [place] [address], [place] [address] 16 Jun, 2012 [facility] [address] [id number] [address] [place] [address], [place] [address] 16 Jun, 2012 [facility] [address] [id number] [address] [place] [address], [place] [address] 16 Jun, 2012 [facility] [address] [id number] [address] [place] [address], [place] [address] 16 Jun, 2012 [facility] [address] [id number] [address] [place] [address], [place] [address] 10 Jun, 2012 [facility] [address] [id number] [address] [place] [address], [place] [address] 10 Jun, 2012 [facility] [address] [id number] [address] [place] [address], [place] [address] 09 Jun, 2012 [facility] [address] [id number] [address] [place] [address], [place] [address] 09 Jun, 2012 [facility] [address] [id number] [address] [place] [address], [place] [address] 01 Jun, 2012 [facility] [address] [id number] [address] [place] [address], [place] [address] 26 Sep, 2012 [facility] [address] [id number] [address] [place] [address], [place] [address] 25 Sep, 2012 [facility] [address] [id number] [address] [place] [address], [place] [address] 19 Sep, 2012 [facility] [address] [id number] [address] [place] [address], [place] [address] 17 Sep, 2012 [facility] [address] [id number] [address] [place] [address], [place] [address] 11 Sep, 2012 [facility] [address] [id number] [address] [place] [address], [place] [address] 10 Sep, 2012 [facility] [address] [id number] [address] [place] [address], [place] [address] May, [facility] [address] [id number] [address] [place] [address], [place] [address] May, [facility] [address] [id number] [address] [place] [address], [place] [address] Apr, [facility] [address] [id number] [address] [place] [address], [place] [address] Apr, [facility] [address] [id number] [address] [place] [address], [place] [address] Apr, [facility] [address] [id number] [address] [place] [address], [place] [address] Apr, [facility] [address] [id number] [address] [place] [address], [place] [address] Apr, [facility] [address] [id number] [address] [place] [address], [place] [address] Mar, [facility] [address] [id number] [address] [place] [address], [place] [address] Mar, [facility] [address] [id number] [address] [place] [address], [place] [address] Mar, [facility] [address] [id number] [address] [place] [address], [place] [address] Mar, [facility] [address] [id number] [address] [place] [address], [place] [address] Mar, [facility] [address] [id number] [address] [place] [address], [place] [address] Mar, [facility] [address] [id number] [address] [place] [address], [place] [address] Mar, [facility] [address] [id number] [address] [place] [address], [place] [address] Mar, [facility] [address] [id number] [address] [place] [address], [place] [address] Feb, [facility] [address] [id number] [address] [place] [address], [place] [address] Feb, [facility] [address] [id number] [address] [place] [address], [place] [address] January, [facility] [address] [id number] [address] [place] [address], [place] [address] January, [facility] [address] [id number] [address] [place] [address], [place] [address] Dec, [facility] [address] [id number] [address] [place] [address], [place] [address] Dec, [facility] [address] [id number] [address] [place] [address], [place] [address] Nov, [facility] [address] [id number] [address] [place] [address], [place] [address] Nov, [facility] [address] [id number] [address] [place] [address], [place] [address] Nov, [facility] [address] [id number] [address] [place] [address], [place] [address] Nov, [facility] [address] [id number] [address] [place] [address], [place] [address] Oct, [facility] [address] [id number] [address] [place] [address], [place] [address] Oct, [facility] [address] [id number] [address] [place] [address], [place] [address] Oct, [facility] [address] [id number] [address] [place] [address], [place] [address] Oct, [facility] [address] [id number] [address] [place] [address], [place] [address] 16 Oct, 2012 [facility] [address] [id number] [address] [place] [address], [place] [address] 14 Oct, 2012 [facility] [address] [id number] [address] [place] [address], [place] [address] 08 Oct, 2012 [facility] [address] [id number] [address] [place] [address], [place] [address] 07 Oct, 2012 [facility] [address] [id number] [address] [place] [address], [place] [address] 03 Oct, 2012 [facility] [address] [id number] [address] [place] [address], [place] [address] 30 Sep, 2012 [facility] [address] [id number] [address] [place] [address], [place] [address] Sep, [facility] [address] [id number] [address] [place] [address], [place] [address] Sep, [facility] [address] [id number] [address] [place] [address], [place] [address] Sep, [facility] [address] [id number] [address] [place] [address], [place] [address] Sep, [facility] [address] [id number] [address] [place] [address], [place] [address] Sep, [facility] [address] [id number] [address] [place] [address], [place] [address] Sep, [facility] [address] [id number] [address] [place] [address], [place] [address] Sep, [facility] [address] [id number] [address] [place] [address], [place] [address] Aug, [facility] [address] [id number] [address] [place] [address], [place] [address] Aug, [facility] [address] [id number] [address] [place] [address], [place] [address] Aug, [facility] [address] [id number] [address] [place] [address], [place] [address] Aug, [facility] [address] [id number] [place] [address] Aug, [facility] [address] [id number] [address] [place] [address], [place] [address] Aug, [facility] [address] [id number] [address] [place] [address], [place] [address] Aug, [facility] [address] [id number] [address] [place] [address] Aug, [facility] [address] [id number] [address] [place] [id number] Jul, [facility] [address] [id number] [address] [place] [address], [place] [address] Jul, [facility] [address] [id number] [address] [place] [address] Jul, [facility] [address] [id number] [address] [place] [address], [place] [address] Jul, [facility] [address] [id number] [address] [place] [address] Jul, [facility] [address] [id number] [address] [place] [address] Jul, [facility] [address] [id number] [address] [place] [address] Jun, [facility] [address] [id number] [address] [place] [id number] Jun, [facility] [address] [id number] [address] [place] [phone] Jun, [facility] [address] [id number] [address] [place] [address], [place] [address] Jun, [facility] [address] [id number] [address] [place] [phone] Jun, [facility] [address] [id number] [address] [place] [phone] Jun, [facility] [address] [id number] [address] [place] [address], [place] [address] Jun, [facility] [address] [id number] [address] [place] [address], [place] [address] Jun, [facility] [address] [id number] [address] [place] [address], [place] [address] 10 Jun, 2012 [facility] [address] [id number] [address] [place] [address], [place] [address] 26 May, 2012 [facility] [address] [id number] [address] [place] [address], [place] [address] 24 May, 2012 [facility] [address] [id number] [address] [place] [address], [place] [address] 18 May, 2012 [facility] [address] [id number] [address] [place] [address], [place] [address] 30 Apr, 2012 [facility] [address] [id number] [address] [place] [address], [place] [address] Apr, [facility] [address] [id number] [address] [place] [address], [place] [address] Apr, [facility] [address] [id number] [address] [place] [address], [place] [address] Apr, [facility] [address] [id number] [address] [place] [address], [place] [address] Apr, [facility] [address] [id number] [address] [place] [address], [place] [address] Apr, [facility] [address] [id number] [address] [place] [address], [place] [address] Mar, [facility] [address] [id number] [address] [place] [address], [place] [address] Mar, [facility] [address] [id number] [address] [place] [address], [place] [address] Mar, [facility] [address] [id number] [address] [place] [address], [place] [address] Mar, [facility] [address] [id number] [address] [place] [address], [place] [address] Feb, [facility] [address] [id number] [address] [place] [address], [place] [address] Feb, [facility] [address] [id number] [address] [place] [address], [place] [address] Feb, [facility] [address] [id number] [address] [place] [address], [place] [address] Feb, [facility] [address] [id number] [address] [place] [address], [place] [address] Feb, [facility] [address] [id number] [address] [place] [address], [place] [address] January, [facility] [address] [id number] [address] [place] [address], [place] [address] January, [facility] [address] [id number] [address] [place] [address], [place] [address] January, [facility] [address] [id number] [address] [place] [address], [place] [address] January, [facility] [address] [id number] [address] [place] [address], [place] [address] January, [facility] [address] [id number] [address] [place] [address], [place] [address] January, [facility] [address] [id number] [address] [place] [address], [place] [address] Dec, [facility] [address] [id number] [address] [place] [address], [place] [address] Dec, [facility] [address] [id number] [address] [place] [address], [place] [address] Dec, [facility] [address] [id number] [address] [place] [address], [place] [address] Dec, [facility] [address] [address] [id number] [address] [place] [address], [place] [address] 06 Dec, 2011 [facility] [address] [id number] [address] [place] [address], [place] [address] 27 Nov, 2011 [facility] [address] [id number] [address] [place] [address], [place] [address] 14 Nov, 2011 [facility] [address] [id number] [address] [place] [address], [place] [address] 12 Nov, 2011 [facility] [address] [id number] [address] [place] [address], [place] [address] 07 Nov, 2011 [facility] [address] [id number] [address] [place] [address], [place] [address] 29 Oct, 2011 [facility] [address] [id number] [address] [place] [address], [place] [address] 28 Oct, 2011 [facility] [address] [id number] [address] [place] [address], [place] [address] 24 Oct, 2011 [facility] [address] [id number] [address] [place] [address], [place] [address] 13 Oct, 2011 [facility] [address] [id number] [address] [place] [address], [place] [address] 08 Oct, 2011 [facility] [address] [id number] [address] [place] [address], [place] [address] Sep, [facility] [address] [id number] [address] [place] [address], [place] [address] Sep, [facility] [address] [id number] [address] [place] [address], [place] [address] Sep, [facility] [address] [id number] [address] [place] [address], [place] [address] Sep, [facility] [address] [id number] [address] [place] [address], [place] [address] 05 Sep, 2011 [facility] [address] [id number] [address] [place] [address], [place] [address] Sep, [facility] [address] [id number] [address] [place] [address], [place] [address] Aug, [facility] [address] [id number] [address] [place] [address], [place] [address] Aug, [facility] [address] [id number] [address] [place] [address], [place] [address] Aug, [facility] [address] [id number] [address] [place] [address], [place] [address] Jul, [facility] [address] [id number] [address] [place] [address], [place] [address] Jul, [facility] [address] [id number] [address] [place] [address], [place] [address] Jul, [facility] [address] [id number] [address] [place] [address], [place] [address] Jul, [facility] [address] [id number] [address] [place] [address], [place] [address] Jun, [facility] [address] [id number] [address] [place] [address], [place] [address] Jun, [facility] [address] [id number] [address] [place] [address], [place] [address] Jun, [facility] [address] [id number] [address] [place] [address], [place] [address] Jun, [facility] [address] [id number] [address] [place] [address], [place] [address] Jun, [facility] [address] [id number] [address] [place] [address], [place] [address] Jun, [facility] [address] [id number] [address] [place] [address], [place] [address] Mar, [facility] [address] [id number] [address] [place] [address], [place] [address] Dec, [facility] [address] [id number] [address] [place] [address], [place] [address] 11 Dec, 2010 [facility] [address] [id number] [address] [place] [address], [place] [address] 18 Nov, 2010 [facility] [address] [id number] [address] [place] [address], [place] [address] 16 Nov, 2010 [facility] [address] [id number] [address] [place] [address], [place] [address] 10 Sep, 2010 [facility] [address] [id number] [address] [place] [address], [place] [address] 31 Aug, 2010 [facility] [address] [id number] [address] [place] [address], [place] [address] 29 Aug, 2010 [facility] [address] [id number] [address] [place] [address], [place] [address] 29 Aug, 2010 [facility] [address] [id number] [address] [place] [address], [place] [address] 29 Aug, 2010 [facility] [address] [id number] [address] [place] [address], [place] [address] 27 Aug, 2010 [facility] [address] [id number] [address] [place] [address], [place] [address] 14 Aug, 2010 [facility] [address] [id number] [address] [place] [address], [place] [address] 08 Aug, 2010 [facility] [address] [id number] [address] [place] [address], [place] [address] 08 Aug, 2010 [facility] [address] [id number] [address] [place] [address], [place] [address] 07 Aug, 2010 [facility] [address] [id number] [address] [place] [address], [place] [address] 06 Aug, 2010 [facility] [address] [id number] [address] [place] [address], [place] [address] 06 Aug, 2010 [facility] [address] [id number] [address] [place] [address], [place] [address] Aug, [facility] [address] [id number] [address] [place] [address], [place] [address] 30 Jul, 2010 [facility] [address] [id number] [address] [place] [address], [place] [address] Jul, [facility] [address] [id number] [address] [place] [address], [place] [address] 30 Jul, 2010 [facility] [address] [id number] [address] [place] [address], [place] [address] 17 Jul, 2010 [facility] [address] [id number] [address] [place] [address], [place] [address] Jul, [facility] [address] [id number] [address] [place] [address], [place] [address] Jul, [facility] [address] [id number] [address] [place] [address], [place] [address] 24 Jun, 2010 [facility] [address] [id number] [address] [place] [address], [place] [address] Jun, [facility] [address] [id number] [address] [place] [address], [place] [address] Jun, [facility] [address] [id number] [address] [place] [address], [place] [address] Jun, [facility] [address] [id number] [address] [place] [address], [place] [address] 16 Apr, 2010 [facility] [address] [id number] [address] [place] [address], [place] [address] Mar, [facility] [address] [id number] [address] [place] [address], [place] [address] Feb, [facility] [address] [id number] [address] [place] [address], [place] [address] January, [facility] [address] [id number] [address] [place] [address], [place] [address] 15 Dec, 2009 [facility] [address] [id number] [address] [place] [address], [place] [address] Nov, [facility] [address] [id number] [address] [place] [address] Aug, [facility] [address] [id number] [address] [place] [address] Aug, [facility] [address] [id number] [address] [place] [address] Aug, [facility] [address] [id number] [address] [place] [address] Jul, [facility] [address] [id number] [address] [place] [address], [place] [address] Jul, [facility] [address] [id number] [address] [place] [address] Jul, [facility] [address] [id number] [address] [place] [address] 30 Jun, 2009 [facility] [address] [id number] [address] [place] [address] Jun, [facility] [address] [id number] [address] [place] [address] Jun, [facility] [address] [id number] [address] [place] [address] Jun, [facility] [address] [id number] [address] [place] [address] Jun, [facility] [address] [id number] [address] [place] [address] Jun, [facility] [address] [id number] [address] [place] [address] Apr, [facility] [address] [id number] [address] [place] [address] Apr, [facility] [address] [id number] [address] [place] [address] Feb, [facility] [address] [id number] [address] [place] [address] January, [facility] [address] [facility] [id number] [address] [place] [address] Dec, IMMUNIZATIONS No Known Immunizations SOCIAL HISTORY Never Assessed REASON FOR VISIT PLAN OF CARE VITAL SIGNS MEDICATIONS Unknown Medications RESULTS No Results PROCEDURES Procedure Date Ordered Result Body Site PSYTX PT&/FAMILY 45 MINUTES Jun 19, 2013 INSTRUCTIONS MEDICATIONS ADMINISTERED No Known Medications [...] release (Left) 2000 Surgical History EGD ([facility]) 2009 Surgical History colonoscopy 2009 ([facility]), 2013 ([facility] ) Surgical History heart cath: CAD w/ [...] to urinate 09/16/15 Hospitalization History [facility] 1999' Hospitalization History hyperkalemia 10/2017 Hospitalization History fluid in lung Hospitalization History stroke, 02/2020
--- OUTSIDE RECORDS SUMMARY | 2020-04-11 11:07 | XMS REPORT ---
Author Author Michele Verduzco Doctor Organization [facility] Address Unknown Phone Unavailable Care Team Providers Care Coating Operator Name Role Phone Migration, Doctor Unavailable Unavailable PROBLEMS Type Condition ICD9-CM Code GAM43-RE Code Onset Dates Condition S tatus SNOMED Code Problem Insomnia, unspecified type G47.00 Act sharon 330708194 Problem Morbid obesity E66.01 Active 48236 6002 Problem Anxiety F41.9 Active 09971626 Problem Diabetic polyneuropathy associated with type 2 d iabetes mellitus E11.42 Active 82353105 Problem Essential hypertension I10 Active 39073955 Problem Bilateral primary osteoarthritis of knee M17.0 Active 951607799 Problem Polyneuropathy associated with underlying disease G63 Active 234961537 Problem Psychophysiological insomnia F51.04 A ctive 673423275 Problem Leukocytosis D72.829 Active 6158852 06 Problem Chronic diastolic (congestive) heart failure I50.3 2 Active 698038198 Problem Diabetes E11.9 Active 88732725 Problem Bipolar I disorder, most recent episode (or curr ent) mixed, moderate F31.62 Active 83602947 Problem Reactive airway disease J45.909 Active 358420443868 Problem Bipolar disorder, in partial remission, most rec ent episode depressed F31.75 Active 27001709 Problem Falling R29.6 Active 176209033 Problem Primary osteoarthritis of right knee M17.11 Active [id number] Problem Cough R05 Active 87446874 Problem Pure hypercholesterolemia E78.00 Acti ve 695534726 Problem Dysuria R30.0 Active 78928955 Problem Mild cognitive impairment G31.84 Acti ve 786449432 Problem Benign prostatic hyperplasia with lower urinary tract symptoms, unspecified morphology N40.1 Active 51407 6007 Problem Other iron deficiency anemia D50.8 A ctive 61622809 Problem Eustachian tube dysfunction, unspecified laterality H69.80 Active 26370934 Problem Bipolar disorder F31.9 Active 137 49826 Problem Chronic pain G89.29 Active 2119000 1 Problem Skin cancer C44.90 Active 31041646 7 Problem DM neuro manif type II E11.49 Active 91759828 Problem Type 2 diabetes mellitus with diabetic neuropathy, uns pecified E11.40 Active 87476649 Problem half-way (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 Z79.4 Active 106431924 Problem Mood disorder F39 Active 584560 05 Problem Agitation R45.1 Active 892933826 Problem Anemia of chronic illness D63.8 Acti ve 532799783 Problem Lymphocytosis D72.820 Active 907044 09 Problem Dysphagia, unspecified type R13.10 Ac tive 01569734 Problem Retinal edema H35.81 Active 671434 6 Problem Chronic lymphocytic leukemia C91.10 A ctive 34123082 Problem Pressure ulcer of other site, stage 3 L89.893 Active 200708024 Problem 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 Active 205346250 Problem Eye exam abnormal R93.8 Active 16 5799886 Problem Bipolar I disorder, most recent episode depressed, moderat e F31.32 Active 634322310 Problem Gastroesophageal reflux disease without esophagitis K21.9 Active 498076362 Problem Hypokalemia E87.6 Active 90593333 Problem Other secondary acute gout, 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 0 Active 933843369 Problem PVD (peripheral vascular disease) I73.9 Active 025546918 ALLERGIES No Information ENCOUNTERS Encounter Location Date Diagnosis [facility] [address] [facility] [id number] [address] [place] [id number] Apr, [facility] [address] [facility] [id number] [address] [place] [id number] Mar, [facility] [address] [facility] [id number] [address] [place] [id number] Mar, [facility] [address] [facility] [id number] [address] [place] [id number] Mar, [facility] [address] [facility] [id number] [address] [place] [id number] Mar, Mood disorder F39 [facility] [address] [facility] [id number] [address] [place] [id number] Mar, Bipolar I disorder, most rec ent episode depressed, moderate F31.32 ; Anxiety F41.9 and Mild cognitive impairment G31.84 [place] [address] [facility] [id number] [address] [place] [id number] 26 Feb, 2020 Dysphagia, unspecified type R13.10 [place] [address] [facility] [id number] [address] [place] [id number] 25 Feb, 2020 Bipolar I disorder, most rec ent episode depressed, moderate F31.32 ; Anxiety F41.9 and Mild cognitive impairment G31.84 [place] [address] [facility] [id number] [address] [place] [id number] 24 Feb, 2020 [place] [address] [facility] [id number] [address] [place] [id number] 24 Feb, 2020 Gastroesophageal reflux dise ase without esophagitis K21.9 [place] [address] [facility] [id number] [address] [place] [id number] 23 Feb, 2020 [place] [address] [facility] [id number] [address] [place] [id number] 18 Feb, 2020 Bipolar I disorder, most rec ent episode depressed, moderate F31.32 ; Anxiety F41.9 and Mild cognitive impairment G31.84 [place] [address] [place] [id number] [address] [place] [id number] 17 Feb, 2020 Chronic pain G89.29 [place] [address] [place] [id number] [address] [place] [id number] 17 Feb, 2020 Agitation R45.1 [place] [address] [place] [id number] [address] [place] [id number] 17 Feb, 2020 PVD (peripheral vascular dis ease) I73.9 ; Status post CVA Z86.73 ; Status post carotid endarterectomy Z98.890 ; Vertigo R42 ; Mild cognitive impairment G31.84 ; Type 2 diabetes mellitus with diabetic neuropathy, unspecified E11.40 and Essential hypertension I10 [place] [address] [place] [id number] [address] [place] [id number] 12 Feb, 2020 [place] [address] [facility] [id number] [address] [place] [id number] Feb, [facility] [address] [id number] [address] [place] [address] January, [facility] [address] [id number] [address] [place] [id number] January, Chronic pain G89.29 [facility] [address] [id number] [address] [place] [id number] Dec, [facility] [address] [id number] [address] [place] [id number] Dec, Chronic pain G89.29 [facility] [address] [id number] [address] [place] [id number] Dec, [facility] [address] [id number] [address] [place] [id number] Dec, [facility] [address] [facility] [id number] [address] [place] [address] Dec, Gastroesophageal reflux dise ase without esophagitis K21.9 and Pure hypercholesterolemia E78.00 [facility] [address] [id number] [address] [place] [id number] Dec, Mood disorder F39 [place] [address] [facility] [id number] [address] [place] [id number] Nov, Other secondary acute gout, 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 [facility] [address] [id number] [address] [place] [id number] Nov, Gastroesophageal reflux dise ase without esophagitis K21.9 [facility] [address] [id number] [address] [place] [id number] Nov, Chronic pain G89.29 [facility] [address] [facility] [id number] [address] [place] [id number] Nov, Bipolar I disorder, most rec ent episode depressed, moderate F31.32 ; Anxiety F41.9 and Mild cognitive impairment G31.84 [facility] [address] [id number] [address] [place] [id number] Nov, [facility] [address] [id number] [address] [place] [id number] Nov, Syncope, unspecified syncope type R55 [facility] [address] [id number] [address] [place] [id number] Nov, Mood disorder F39 [facility] [address] [id number] [address] [place] [id number] Oct, Chronic pain G89.29 [facility] [address] [id number] [address] [place] [id number] Oct, [facility] [address] [id number] [address] [place] [id number] Oct, Mood disorder F39 [facility] [address] [facility] [id number] [address] [place] [id number] Oct, [facility] [address] [id number] [address] [place] [address] Oct, Bipolar disorder, in partial remission, most recent episode depressed F31.75 and Mild cognitive impairment G31.84 [facility] [address] [id number] [address] [place] [id number] Oct, Mood disorder F39 [facility] [address] [facility] [id number] [address] [place] [id number] Sep, [facility] [address] [id number] [address] [place] [id number] Sep, Mood disorder F39 [facility] [address] [id number] [address] [place] [id number] Sep, Bipolar disorder, in partial remission, most recent episode depressed F31.75 and Mild cognitive impairment G31.84 [facility] [address] [facility] [id number] [address] [place] [id number] Sep, Mood disorder F39 [facility] [address] [id number] [address] [place] [id number] Sep, [facility] [address] [id number] [address] [place] [id number] Sep, Mood disorder F39 [facility] [address] [id number] [address] [place] [id number] Sep, [facility] [address] [id number] [address] [place] [id number] Aug, Mood disorder F39 [facility] [address] [id number] [address] [place] [id number] Aug, [facility] [address] [id number] [address] [place] [id number] Aug, [facility] [address] [id number] [address] [place] [id number] Aug, [facility] [address] [id number] [address] [place] [id number] Aug, [facility] [address] [id number] [address] [place] [id number] Aug, [facility] [address] [id number] [address] [place] [id number] Aug, [facility] [address] [id number] [address] [place] [id number] Aug, [facility] [address] [id number] [address] [place] [id number] Aug, Essential hypertension I10 [facility] [address] [id number] [address] [place] [id number] Aug, Bipolar disorder, in partial remission, most recent episode depressed F31.75 and Mild cognitive impairment G31.84 [facility] [address] [id number] [address] [place] [id number] Aug, Mood disorder F39 [facility] [address] [id number] [address] [place] [id number] Aug, [facility] [address] [id number] [address] [place] [id number] Aug, Bipolar disorder, in partial remission, most recent episode depressed F31.75 and Mild cognitive impairment G31.84 [facility] [address] [id number] [address] [place] [id number] Jul, Bipolar disorder, in partial remission, most recent episode depressed F31.75 and Mild cognitive impairment G31.84 [facility] [address] [id number] [address] [place] [id number] Jul, Psychophysiological insomnia F51.04 [facility] [address] [id number] [address] [place] [id number] Jul, [facility] [address] [id number] [address] [place] [id number] Jul, [facility] [address] [id number] [address] [place] [id number] Jul, [facility] [address] [id number] [address] [place] [id number] Jul, [facility] [address] [id number] [address] [place] [id number] Jul, [facility] [address] [id number] [address] [place] [id number] Jul, [facility] [address] [id number] [address] [place] [id number] Jul, Bipolar disorder, in partial remission, most recent episode depressed F31.75 and Mild cognitive impairment G31.84 [facility] [address] [id number] [address] [place] [id number] Jul, Chronic pain G89.29 ; Diabet es E11.9 ; Essential hypertension I10 ; Ill feeling R68.89 ; Local infection of the skin and subcutaneous tissue, unspecified L08.9 and Other injury of unspecified body region, initial encounter T14.8XXA [facility] [address] [id number] [address] [place] [id number] Jun, Bipolar disorder, in partial remission, most recent episode depressed F31.75 and Mild cognitive impairment G31.84 [facility] [address] [id number] [address] [place] [id number] Jun, [facility] [address] [id number] [address] [place] [id number] Jun, Bipolar disorder, in partial remission, most recent episode depressed F31.75 and Mild cognitive impairment G31.84 [facility] [address] [id number] [address] [place] [id number] Jun, Psychophysiological insomnia F51.04 [place] [address] [facility] [id number] [address] [place] [id number] Jun, Psychophysiological insomnia F51.04 ; Chronic pain G89.29 ; Bipolar I disorder, most recent episode (or current) mixed, moderate F31.62 ; 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 ; Polyneuropathy associated with underlying disease G63 ; Type 2 diabetes mellitus with diabetic neuropathy, unspecified E11.40 ; intermediate frame tender (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 Z79.4 and Hyperglycemia R73.9 [place] [address] [facility] [id number] [address] [place] [id number] Jun, Bipolar disorder, in partial remission, most recent episode depressed F31.75 and Mild cognitive impairment G31.84 [facility] [address] [id number] [address] [place] [id number] Jun, [facility] [address] [id number] [address] [place] [id number] Jun, Bipolar disorder F31.9 [facility] [address] [facility] [id number] [address] [place] [address] May, Bipolar disorder, in partial remission, most recent episode depressed F31.75 and Mild cognitive impairment G31.84 [place] [address] [facility] [id number] [address] [place] [id number] May, [facility] [address] [id number] [address] [place] [id number] Apr, Chronic pain G89.29 and Bipo lar disorder F31.9 [facility] [address] [id number] [address] [place] [id number] Mar, Bipolar disorder F31.9 and C hronic pain G89.29 [facility] [address] [id number] [address] [place] [id number] Feb, Bipolar disorder F31.9 [facility] [address] [id number] [address] [place] [id number] Feb, Cellulitis of right upper ex tremity L03.113 and Skin abrasion T14.8XXA [facility] [address] [facility] [id number] [address] [place] [id number] Feb, Bipolar disorder, in partial remission, most recent episode depressed F31.75 and Mild cognitive impairment G31.84 [facility] [address] [facility] [id number] [address] [place] [id number] Feb, Chronic pain G89.29 [facility] [address] [facility] [id number] [address] [place] [address] Feb, Bipolar disorder, in partial remission, most recent episode depressed F31.75 and Mild cognitive impairment G31.84 [facility] [address] [id number] [address] [place] [address] January, Bipolar disorder, in partial remission, most recent episode depressed F31.75 and Mild cognitive impairment G31.84 [facility] [address] [facility] [id number] [address] [place] [address] January, Chronic pain G89.29 and Bipo lar disorder F31.9 [facility] [address] [id number] [address] [place] [id number] January, Bipolar disorder, in partial remission, most recent episode depressed F31.75 and Mild cognitive impairment G31.84 [facility] [address] [facility] [id number] [address] [place] [id number] Dec, [facility] [address] [facility] [id number] [address] [place] [address] Dec, Chronic pain G89.29 and Bipo lar disorder F31.9 [facility] [address] [facility] [id number] [address] [place] [address] Dec, Edema of both lower extremit ies R60.0 [facility] [address] [facility] [id number] [address] [place] [id number] Dec, Bipolar disorder F31.9 [facility] [address] [facility] [id number] [address] [place] [id number] Dec, Bipolar disorder, in partial remission, most recent episode depressed F31.75 and Mild cognitive impairment G31.84 [facility] [address] [facility] [id number] [address] [place] [id number] Nov, [facility] [address] [facility] [id number] [address] [place] [address] Nov, Chronic pain G89.29 [facility] [address] [facility] [id number] [address] [place] [id number] Nov, Bipolar disorder, in partial remission, most recent episode depressed F31.75 and Mild cognitive impairment G31.84 [facility] [address] [facility] [id number] [address] [place] [id number] Nov, Bipolar disorder F31.9 [place] [address] [facility] [id number] [address] [place] [address] 04 Nov, 2018 Encounter for Medicare annua [...] unspecified morphology N40.1 and Essential hypertension I10 [place] [address] [address] Oct, Chronic pain G89.[address] [address] Oct, Diabetes E11.9 [place] [address] [address] Oct, Bipolar I disorder, most rec ent episode (or current) mixed, moderate F31.62 and Mild cognitive impairment G31.84 [place] [address] [address] Oct, Bipolar I disorder, most rec ent episode (or current) mixed, moderate F31.62 and Mild cognitive impairment G31.84 [place] [address] [address] Sep, Bipolar I disorder, most rec ent episode (or current) mixed, moderate F31.62 and Mild cognitive impairment G31.84 [place] [address] [address] Sep, [address] [address] Sep, Diabetes E11.9 ; Hypoxia R09 .02 ; Hyperglycemia R73.9 ; Therapeutic drug monitoring Z51.81 ; BMI 50.0-59.9, adult Z68.43 and Skin cancer C44.[address] [address] Sep, Chronic pain G89.[address] [address] Sep, Bipolar I disorder, most rec ent episode (or current) mixed, moderate F31.62 [place] [address] [id number] [address] [place] [id number] Sep, [facility] [address] [id number] [address] [place] [id number] Sep, [facility] [address] [id number] [address] [place] [id number] Aug, Chronic pain G89.29 [facility] [address] [id number] [address] [place] [address] Aug, Bipolar I disorder, most rec ent episode (or current) mixed, moderate F31.62 [facility] [address] [id number] [address] [place] [id number] Aug, Bipolar I disorder, most rec ent episode (or current) mixed, moderate F31.62 and Mild cognitive impairment G31.84 [facility] [address] [facility] [id number] [address] [place] [id number] Jul, [facility] [address] [id number] [address] [place] [id number] Jul, Chronic pain G89.29 [facility] [address] [facility] [id number] [address] [place] [id number] Jul, Bipolar I disorder, most rec ent episode (or current) mixed, moderate F31.62 and Mild cognitive impairment G31.84 [facility] [address] [facility] [id number] [address] [place] [id number] Jul, Bipolar I disorder, most rec ent episode (or current) mixed, moderate F31.62 and MCI (mild cognitive impairment) G31.84 [facility] [address] [id number] [address] [place] [id number] Jul, [facility] [address] [facility] [id number] [address] [place] [id number] Jul, [facility] [address] [facility] [id number] [address] [place] [id number] Jul, Bipolar I disorder, most rec ent episode (or current) mixed, moderate F31.62 [facility] [address] [id number] [address] [place] [address] Jul, Chronic pain G89.29 [facility] [address] [id number] [address] [place] [id number] Jun, Bipolar I disorder, most rec ent episode (or current) mixed, moderate F31.62 [facility] [address] [id number] [address] [place] [id number] Jun, Pre-procedure lab exam Z01.8 12 [facility] [address] [id number] [place] [id number] Jun, [facility] [address] [id number] [address] [place] [id number] Jun, [facility] [address] [facility] [id number] [address] [place] [id number] Jun, [facility] [address] [id number] [address] [place] [address] Jun, Forgetfulness R68.89 ; Pre-s yncope R55 ; Localized edema R60.0 ; Other iron deficiency anemia D50.8 and BMI 50.0-59.9, adult Z68.43 [facility] [address] [id number] [address] [place] [id number] Jun, Chronic pain G89.29 [facility] [address] [id number] [address] [place] [id number] Jun, Chronic pain G89.29 [facility] [address] [id number] [address] [place] [id number] Jun, Bipolar I disorder, most rec ent episode (or current) mixed, moderate F31.62 [facility] [address] [id number] [address] [place] [id number] May, Chronic pain G89.29 [facility] [address] [id number] [address] [place] [id number] Apr, [place] [address] [facility] [id number] [address] [place] [id number] Apr, Chronic pain G89.29 [place] [address] [place] [id number] [address] [place] [id number] Apr, Primary osteoarthritis of ri ght knee M17.11 [place] [address] [place] [id number] [place] [id number] Mar, [place] [address] [place] [id number] [place] [id number] Mar, BMI 50.0-59.9, adult Z68.43 and Bipolar disorder, in partial remission, most recent episode depressed F31.75 [place] [address] [address] Mar, Diabetes E11.9 ; Pure hyperc holesterolemia E78.00 ; Essential hypertension I10 ; Nausea with vomiting, unspecified R11.2 and Headache, unspecified headache type R51 [place] [address] [place] [id number] [place] [id number] Mar, Bipolar I disorder, most rec ent episode (or current) mixed, moderate F31.62 [place] [address] [address] Mar, Bipolar I disorder, most rec ent episode (or current) mixed, moderate F31.62 [place] [address] [place] [id number] [place] [id number] Mar, Chronic pain G89.29 [place] [address] [place] [id number] [place] [id number] Mar, Bipolar I disorder, most rec ent episode (or current) mixed, moderate F31.62 [place] [address] [place] [id number] [address] [place] [id number] Feb, Bipolar I disorder, most rec ent episode (or current) mixed, moderate F31.62 [facility] [address] [id number] [address] [place] [id number] 14 Feb, 2018 Chronic pain G89.29 [facility] [address] [facility] [id number] [address] [place] [id number] 06 Feb, 2018 Decubitus ulcer of right josselin t, stage 3 L89.893 and BMI 50.0-59.9, adult Z68.43 [facility] [address] [facility] [id number] [address] [place] [id number] Feb, Bipolar I disorder, most rec ent episode (or current) mixed, moderate F31.62 [facility] [address] [facility] [id number] [address] [place] [id number] Feb, [facility] [address] [facility] [id number] [address] [place] [id number] January, [facility] [address] [facility] [id number] [address] [place] [address] January, Chronic pain G89.29 [facility] [address] [facility] [id number] [address] [place] [id number] January, Bipolar I disorder, most rec ent episode (or current) mixed, moderate F31.62 [facility] [address] [facility] [id number] [address] [place] [id number] January, Bipolar I disorder, most rec ent episode (or current) mixed, moderate F31.62 [facility] [address] [facility] [id number] [address] [place] [id number] Dec, Bipolar I disorder, most rec ent episode (or current) mixed, moderate F31.62 and BMI 50.0-59.9, adult Z68.43 [facility] [address] [facility] [id number] [address] [place] [address] Dec, Bipolar I disorder, most rec ent episode (or current) mixed, moderate F31.62 [place] [address] [facility] [id number] [address] [place] [id number] Dec, Chronic pain G89.29 [facility] [address] [place] [id number] [place] [address] Dec, DM neuro manif type II E11.4 9 ; Right flank pain R10.9 ; intermediate frame tender current use of opiate analgesic Z79.891 ; Encounter for medication monitoring Z51.81 and BMI 50.0-59.9, adult Z68.43 [place] [address] [place] [id number] [place] [address] Dec, Bipolar I disorder, most rec ent episode (or current) mixed, moderate F31.62 [place] [address] [place] [id number] [place] [id number] Nov, Bipolar I disorder, most rec ent episode (or current) mixed, moderate F31.62 [place] [address] [place] [id number] [place] [address] Nov, Chronic pain G89.29 [place] [address] [place] [id number] [address] [place] [id number] Nov, Bipolar I disorder, most rec ent episode (or current) mixed, moderate F31.62 [place] [address] [place] [id number] [place] [address] Nov, Hypokalemia E87.6 [place] [address] [place] [id number] [place] [id number] Nov, Bipolar I disorder, most rec ent episode (or current) mixed, moderate F31.62 [place] [address] [place] [id number] [place] [address] Oct, Chronic pain G89.29 [place] [address] [place] [id number] [place] [id number] Oct, BMI 50.0-59.9, adult Z68.43 and Bipolar I disorder, most recent episode (or current) mixed, moderate F31.62 [place] [address] [place] [id number] [place] [id number] Oct, Bipolar I disorder, most rec ent episode (or current) mixed, moderate F31.62 [facility] [address] [facility] [id number] [address] [place] [address] Oct, [facility] [address] [place] [id number] [place] [address] Oct, Hypokalemia E87.6 [facility] [address] [facility] [id number] [address] [place] [address] Oct, DM neuro manif type II E11.4 9 [facility] [address] [place] [id number] [place] [address] Oct, Bipolar I disorder, most rec ent episode (or current) mixed, moderate F31.62 [place] [address] [place] [id number] [place] [address] Oct, Bipolar I disorder, most rec ent episode (or current) mixed, moderate F31.62 [facility] [address] [facility] [id number] [address] [place] [address] 14 Oct, 2017 Hyperkalemia E87.5 ; Falling R29.6 ; BMI 50.0-59.9, adult Z68.43 and Acute left ankle pain M25.572 [facility] [address] [place] [id number] [place] [address] Oct, DM neuro manif type II E11.4 9 [facility] [address] [facility] [id number] [address] [place] [address] Oct, [facility] [address] [place] [id number] [place] [address] Sep, Chronic pain G89.29 [facility] [address] [place] [id number] [place] [address] Sep, [facility] [address] [place] [id number] [place] [id number] 25 Sep, 2017 Bilateral primary osteoarthr itis of knee M17.0 [place] [address] [facility] [id number] [address] [place] [address] 18 Sep, 2017 Generalized edema R60.1 [facility] [address] [place] [id number] [place] [address] 16 Sep, 2017 Bipolar I disorder, most rec ent episode (or current) mixed, moderate F31.62 [facility] [address] [place] [id number] [place] [address] 15 Sep, 2017 Hypoxia R09.02 ; Other hyper volemia E87.79 ; Diabetes E11.9 ; Retinal edema H35.81 ; Hypokalemia E87.6 ; 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 ; Anemia of chronic illness D63.8 and BMI 50.0- 59.9, adult Z68.43 [place] [address] [place] [id number] [place] [id number] 03 Sep, 2017 [place] [address] [facility] [id number] [address] [place] [address] Sep, Bipolar I disorder, most rec ent episode (or current) mixed, moderate F31.62 [place] [address] [place] [id number] [place] [address] Aug, Chronic pain G89.29 [place] [address] [place] [id number] [place] [address] Aug, Generalized edema R60.1 [facility] [address] [facility] [id number] [address] [place] [address] Aug, [place] [address] [place] [id number] [place] [address] Aug, [place] [address] [place] [id number] [place] [id number] 14 Aug, 2017 Bipolar I disorder, most rec ent episode (or current) mixed, moderate F31.62 [place] [address] [place] [id number] [place] [address] Aug, Bipolar I disorder, most rec ent episode (or current) mixed, moderate F31.62 [place] [address] [place] [id number] [place] [address] Aug, Chronic pain G89.29 [place] [address] [place] [id number] [address] [place] [address] Jul, Bipolar I disorder, most rec ent episode (or current) mixed, moderate F31.62 [place] [address] [place] [id number] [place] [address] Jul, Bipolar I disorder, most rec ent episode (or current) mixed, moderate F31.62 and BMI 60.0-69.9, adult Z68.44 [place] [address] [place] [id number] [place] [address] Jul, Bipolar I disorder, most rec ent episode (or current) mixed, moderate F31.62 [place] [address] [place] [id number] [place] [address] Jul, Chronic pain G89.29 [place] [address] [place] [id number] [place] [address] Jul, Bipolar I disorder, most rec ent episode (or current) mixed, moderate F31.62 [place] [address] [place] [id number] [place] [address] Jun, Polyneuropathy associated wi th underlying disease G63 and Diabetes E11.9 [place] [address] [place] [id number] [place] [address] Jun, Bipolar I disorder, most rec ent episode (or current) mixed, moderate F31.62 [place] [address] [place] [id number] [place] [address] Jun, Chronic pain G89.29 [place] [address] [place] [id number] [place] [address] May, Bipolar I disorder, most rec ent episode (or current) mixed, moderate F31.62 [facility] [address] [id number] [address] [place] [address] May, Bipolar I disorder, most rec ent episode (or current) mixed, moderate F31.62 [facility] [address] [id number] [address] [place] [address] May, Diabetic polyneuropathy asso ciated with type 2 diabetes mellitus E11.42 [facility] [address] [id number] [address] [place] [id number] 18 May, 2017 Bipolar I disorder, most rec ent episode (or current) mixed, moderate F31.62 [facility] [address] [id number] [address] [place] [address] May, Bipolar I disorder, most rec ent episode (or current) mixed, moderate F31.62 [facility] [address] [id number] [address] [place] [address] May, Chronic pain G89.29 [facility] [address] [id number] [address] [place] [address] Apr, Bipolar I disorder, most rec ent episode (or current) mixed, moderate F31.62 [facility] [address] [id number] [address] [place] [address] Apr, [facility] [address] [id number] [address] [place] [address] Apr, Chronic pain G89.29 and DM n euro manif type II E11.49 [facility] [address] [id number] [address] [place] [address] Apr, [facility] [address] [id number] [address] [place] [address] Apr, Bipolar I disorder, most rec ent episode (or current) mixed, moderate F31.62 [facility] [address] [id number] [address] [place] [address] Apr, Chronic pain G89.29 [facility] [address] [facility] [id number] [address] [place] [address] Apr, Iliotibial band syndrome, le ft M76.32 [facility] [address] [facility] [id number] [address] [place] [address] Apr, Bipolar I disorder, most rec ent episode (or current) mixed, moderate F31.62 [facility] [address] [facility] [id number] [address] [place] [address] Mar, Bipolar I disorder, most rec ent episode (or current) mixed, moderate F31.62 [place] [address] [facility] [id number] [address] [place] [address] Mar, Bipolar I disorder, most rec ent episode (or current) mixed, moderate F31.62 [place] [address] [place] [id number] [address] [place] [address] Mar, [facility] [address] [facility] [id number] [address] [place] [id number] Mar, Bipolar I disorder, most rec ent episode (or current) mixed, moderate F31.62 [facility] [address] [place] [id number] [place] [address] Mar, Chronic pain G89.29 [facility] [address] [facility] [id number] [address] [place] [address] Mar, Bipolar I disorder, most rec ent episode (or current) mixed, moderate F31.62 [place] [address] [facility] [id number] [address] [place] [id number] Mar, Bipolar I disorder, most rec ent episode (or current) mixed, moderate F31.62 [facility] [address] [facility] [id number] [address] [place] [address] Mar, Acute pain of left knee M25. 562 ; Left hip pain M25.552 ; Generalized edema R60.1 and Tongue swelling R22.0 [facility] [address] [facility] [id number] [address] [place] [address] Mar, [facility] [address] [facility] [id number] [address] [place] [address] Feb, Chronic pain G89.29 [facility] [address] [facility] [id number] [address] [place] [address] Feb, Diabetes E11.9 [facility] [address] [facility] [id number] [address] [place] [address] January, Chronic pain G89.29 [facility] [address] [id number] [address] [place] [address] January, [facility] [address] [facility] [id number] [address] [place] [address] January, Bipolar I disorder, most rec ent episode (or current) mixed, moderate F31.62 [facility] [address] [facility] [id number] [address] [place] [address] Dec, Bipolar I disorder, most rec ent episode (or current) mixed, moderate F31.62 [facility] [address] [facility] [id number] [address] [place] [address] Dec, Chronic pain G89.29 [facility] [address] [facility] [id number] [address] [place] [address] Dec, Bipolar I disorder, most rec ent episode (or current) mixed, moderate F31.62 [facility] [address] [facility] [id number] [address] [place] [address] Dec, Diabetes E11.9 ; Essential h ypertension I10 ; Chronic pain G89.29 and Morbid obesity E66.01 [facility] [address] [facility] [id number] [address] [place] [address] Dec, [facility] [address] [facility] [id number] [address] [place] [address] Dec, Bipolar I disorder, most rec ent episode (or current) mixed, moderate F31.62 [facility] [address] [id number] [address] [place] [id number] Dec, Bipolar I disorder, most rec ent episode (or current) mixed, moderate F31.62 [facility] [address] [id number] [address] [place] [address] Nov, Chronic pain G89.29 [facility] [address] [id number] [address] [place] [address] Nov, Bipolar I disorder, most rec ent episode (or current) mixed, moderate F31.62 [facility] [address] [id number] [address] [place] [address] Nov, [facility] [address] [facility] [id number] [address] [place] [address] Nov, Bipolar I disorder, most rec ent episode (or current) mixed, moderate F31.62 [facility] [address] [facility] [id number] [address] [place] [address] Nov, Bipolar I disorder, most rec ent episode (or current) mixed, moderate F31.62 [facility] [address] [facility] [id number] [address] [place] [address] Nov, [facility] [address] [facility] [id number] [address] [place] [id number] Nov, [facility] [address] [facility] [id number] [address] [place] [address] Nov, [facility] [address] [facility] [id number] [address] [place] [address] Oct, Chronic pain G89.29 [facility] [address] [facility] [id number] [address] [place] [id number] Oct, Bipolar I disorder, most rec ent episode (or current) mixed, moderate F31.62 [facility] [address] [facility] [id number] [address] [place] [address] Oct, [facility] [address] [id number] [address] [place] [address] Oct, Chronic pain G89.29 ; Diabet es E11.9 ; Anxiety F41.9 and 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 [facility] [address] [id number] [address] [place] [id number] Oct, [facility] [address] [id number] [address] [place] [address] Oct, Diabetes E11.9 [facility] [address] [facility] [id number] [address] [place] [address] Oct, Bipolar I disorder, most rec ent episode (or current) mixed, moderate F31.62 [facility] [address] [facility] [id number] [address] [place] [address] Sep, Chronic pain G89.29 [facility] [address] [facility] [id number] [address] [place] [address] Sep, Chronic pain G89.29 [facility] [address] [facility] [id number] [address] [place] [address] Aug, Chronic pain G89.29 [facility] [address] [facility] [id number] [address] [place] [address] Jul, [facility] [address] [facility] [id number] [address] [place] [address] Jul, Diabetes E11.9 [facility] [address] [id number] [address] [place] [address] Jul, Chronic pain G89.29 [facility] [address] [facility] [id number] [address] [place] [address] Jul, Bipolar I disorder, most rec ent episode (or current) mixed, moderate F31.62 [facility] [address] [facility] [id number] [address] [place] [address] Jun, Bipolar I disorder, most rec ent episode (or current) mixed, moderate F31.62 [facility] [address] [facility] [id number] [address] [place] [address] Jun, [facility] [address] [facility] [id number] [address] [place] [id number] Jun, Bipolar I disorder, most rec ent episode (or current) mixed, moderate F31.62 [facility] [address] [facility] [id number] [address] [place] [id number] May, Insomnia, unspecified type G 47.00 [facility] [address] [facility] [id number] [address] [place] [address] May, Bipolar I disorder, most rec ent episode (or current) mixed, moderate F31.62 [place] [address] [facility] [id number] [address] [place] [id number] May, [facility] [address] [facility] [id number] [address] [place] [id number] May, Bipolar I disorder, most rec ent episode (or current) mixed, moderate F31.62 [facility] [address] [facility] [id number] [address] [place] [address] May, Diabetes E11.9 and Essential hypertension I10 [facility] [address] [facility] [id number] [address] [place] [address] Apr, Chronic pain G89.29 [facility] [address] [facility] [id number] [address] [place] [id number] Apr, Bipolar I disorder, most rec ent episode (or current) mixed, moderate F31.62 [facility] [address] [facility] [id number] [address] [place] [address] Apr, [facility] [address] [facility] [id number] [address] [place] [id number] Apr, [facility] [address] [facility] [id number] [place] [id number] Mar, Chronic pain G89.29 ; Headac he, unspecified headache type R51 ; Neuropathy G62.9 ; Pain of right hip joint M25.551 and Essential hypertension I[address] [place] [address] [place] [id number] [address] [place] [id number] Mar, Chronic pain G89.29 [facility] [address] [place] [id number] [place] [id number] Mar, Bipolar I disorder, most rec ent episode (or current) mixed, moderate F31.62 [place] [address] [place] [id number] [place] [id number] Feb, Bipolar I disorder, most rec ent episode (or current) mixed, moderate F31.62 and Insomnia, unspecified type G47.00 [place] [address] [place] [id number] [address] [place] [id number] Feb, Chronic pain G89.29 [place] [address] [place] [id number] [address] [place] [id number] Feb, Bipolar I disorder, most rec ent episode (or current) mixed, moderate F31.62 [place] [address] [place] [id number] [place] [address] January, Bipolar I disorder, most rec ent episode (or current) mixed, moderate F31.62 [place] [address] [place] [id number] [address] [place] [address] January, Chronic pain G89.29 [place] [address] [place] [id number] [address] [place] [address] January, Chronic pain G89.29 and Esse ntial hypertension I10 [place] [address] [place] [id number] [place] [address] January, Bipolar I disorder, most rec ent episode (or current) mixed, moderate F31.62 [place] [address] [place] [id number] [address] [place] [address] Dec, [place] [address] [facility] [id number] [address] [place] [address] Dec, [facility] [address] [facility] [id number] [address] [place] [address] Dec, [facility] [address] [facility] [id number] [address] [place] [address] Dec, [facility] [address] [facility] [id number] [address] [place] [address] Nov, Reactive airway disease J45. 909 [facility] [address] [facility] [id number] [address] [place] [address] Nov, [facility] [address] [facility] [id number] [address] [place] [address] Nov, [facility] [address] [facility] [id number] [address] [place] [address] Nov, [facility] [address] [facility] [id number] [address] [place] [address] Nov, [facility] [address] [facility] [id number] [address] [place] [address] Nov, Onychomycosis B35.1 ; Hammer toe M20.40 ; [place] or callus L84 and DM neuro manif type II E11.49 [facility] [address] [facility] [id number] [address] [place] [address] Nov, Chronic pain G89.29 ; Leukoc ytosis D72.829 and Diabetes E11.9 [facility] [address] [facility] [id number] [address] [place] [address] Nov, [facility] [address] [facility] [id number] [address] [place] [address] Oct, Bronchitis J40 [facility] [address] [facility] [id number] [address] [place] [address] Oct, [facility] [address] [place] [id number] [address] [place] [address] Oct, [facility] [address] [place] [id number] [place] [address] Oct, Mastoiditis, unspecified lat erality H70.90 and Type 2 diabetes mellitus with complication E11.8 [facility] [address] [place] [id number] [place] [address] Sep, [facility] [address] [address] Sep, Dysuria R30.0 ; Cough R05 ; Benign prostatic hyperplasia with lower urinary tract symptoms, unspecified morphology N40.1 ; Hypokalemia E87.6 and Eustachian tube dysfunction, unspecified laterality H69.80 [facility] [address] [address] Sep, Moderate mixed bipolar I dis order F31.62 [place] [address] [address] Sep, Hypokalemia E87.6 [place] [address] [place] [id number] [place] [address] Sep, [place] [address] [address] Sep, Upper respiratory tract infe ction, unspecified type J06.9 [place] [address] [place] [id number] [place] [address] Aug, [place] [address] [place] [id number] [address] [place] [address] Aug, Dysuria R30.0 [place] [address] [place] [id number] [address] [place] [address] Aug, [facility] [address] [place] [id number] [place] [address] Jul, [place] [address] [place] [id number] [address] [place] [address] Jul, [facility] [address] [id number] [address] [place] [address] Jul, [facility] [address] [id number] [address] [place] [address] Jul, [facility] [address] [facility] [id number] [address] [place] [address] Jun, [facility] [address] [id number] [address] [place] [address] Jun, [facility] [address] [id number] [address] [place] [address] Jun, [facility] [address] [id number] [address] [place] [address] May, [facility] [address] [facility] [id number] [address] [place] [address] May, Bipolar I disorder, most rec ent episode (or current) mixed, moderate 296.62 [facility] [address] [id number] [address] [place] [address] May, [facility] [address] [id number] [address] [place] [id number] May, Bipolar I disorder, most rec ent episode (or current) mixed, moderate 296.62 and Major depressive disorder, recurrent episode, severe, specified as with psychotic behavior 296.34 [facility] [address] [id number] [address] [place] [address] May, Bipolar I disorder, most rec ent episode (or current) mixed, moderate 296.62 [facility] [address] [id number] [address] [place] [address] May, [facility] [address] [facility] [id number] [address] [place] [address] Apr, [facility] [address] [facility] [id number] [address] [place] [address] Apr, [facility] [address] [place] [id number] [address] [place] [address] Apr, Unspecified disorder of kidn ey and ureter 593.9 and Diabetes mellitus type 2, uncontrolled 250.02 [facility] [address] [place] [id number] [address] [place] [address] Apr, [facility] [address] [place] [id number] [place] [address] Apr, [facility] [address] [address] Apr, [facility] [address] [address] Apr, [facility] [address] [address] Apr, Diabetes mellitus type II, u ncontrolled 250.02 [facility] [address] [place] [id number] [place] [address] Apr, [facility] [address] [address] Mar, [facility] [address] [address] Mar, [facility] [address] [place] [id number] [place] [address] Mar, [facility] [address] [place] [id number] [place] [address] Mar, Major depressive disorder, r ecurrent episode, severe, specified as with psychotic behavior 296.34 and Bipolar I disorder, most recent episode (or current) mixed, moderate 296.62 [facility] [address] [place] [id number] [place] [address] Mar, Diabetes 250.00 ; Anuria 788 .5 ; Nausea and vomiting 787.01 and Diarrhea 787.91 [facility] [address] [place] [id number] [address] [place] [address] Mar, Diabetes 250.00 [facility] [address] [place] [id number] [address] [place] [address] Mar, [facility] [address] [place] [id number] [address] [place] [address] Mar, Diabetes 250.00 [facility] [address] [place] [id number] [address] [place] [address] Mar, [facility] [address] [place] [id number] [place] [address] Mar, [facility] [address] [place] [id number] [address] [place] [address] Mar, [facility] [address] [place] [id number] [place] [address] Mar, [facility] [id number] [place] [address] Mar, Bipolar I disorder, most rec ent episode (or current) mixed, moderate 296.62 and Major depressive disorder, recurrent episode, severe, specified as with psychotic behavior 296.34 [facility] [address] [address] Mar, Magnesium deficiency 275.2 ; Hypokalemia 276.8 ; Nausea & vomiting 787.01 and Diabetes mellitus type 2, uncontrolled 250.02 [facility] [address] [place] [id number] [address] [place] [address] Feb, [facility] [address] [place] [id number] [address] [place] [address] Feb, Bipolar I disorder, most rec ent episode (or current) mixed, moderate 296.62 [facility] [address] [place] [id number] [address] [place] [address] Feb, Nausea and vomiting 787.01 ; Left elbow pain 719.42 ; Anuria 788.5 and Diabetes 250.00 [facility] [address] [place] [id number] [address] [place] [address] Feb, [facility] [address] [id number] [address] [place] [address] Feb, Hypopotassemia 276.8 and Hyp okalemia 276.8 [facility] [address] [id number] [address] [place] [address] Feb, Hypopotassemia 276.8 and Hyp okalemia 276.8 [facility] [address] [id number] [address] [place] [address] Feb, Seborrheic keratoses 702.19 [facility] [address] [id number] [address] [place] [address] Feb, Hypopotassemia 276.8 and Low magnesium levels 275.2 [facility] [address] [id number] [address] [place] [address] January, [facility] [address] [id number] [address] [place] [address] January, [facility] [address] [id number] [address] [place] [address] January, [facility] [address] [id number] [address] [place] [address] January, Scalp lesion 709.9 [facility] [address] [id number] [address] [place] [address] January, [facility] [address] [facility] [id number] [address] [place] [address] Dec, Tear of medial cartilage or meniscus of knee, current 836.0 and Chondromalacia 733.92 [facility] [address] [id number] [address] [place] [address] Dec, [facility] [address] [id number] [address] [place] [address] Dec, [facility] [address] [id number] [address] [place] [address] Dec, 2014 Squamous cell carcinoma, 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 [facility] [address] [id number] [address] [place] [address], [place] [address] 14 Dec, 2014 [facility] [address] [id number] [address] [place] [address], [place] [address] 13 Dec, 2014 [facility] [address] [id number] [address] [place] [address], [place] [address] Nov, [facility] [address] [id number] [address] [place] [address], [place] [address] Nov, [facility] [address] [id number] [address] [place] [address], [place] [address] Nov, [facility] [address] [id number] [address] [place] [address], [place] [address] Nov, [facility] [address] [id number] [address] [place] [address], [place] [address] Nov, [facility] [address] [id number] [address] [place] [address], [place] [address] Nov, [facility] [address] [id number] [address] [place] [address], [place] [address] Nov, [facility] [address] [id number] [address] [place] [address] Nov, [facility] [address] [id number] [address] [place] [address], [place] [address] Nov, [facility] [address] [id number] [address] [place] [address] Nov, [facility] [address] [id number] [address] [place] [address] Nov, [facility] [address] [id number] [address] [place] [address] Nov, [facility] [address] [id number] [address] [place] [address] Oct, [facility] [address] [id number] [address] [place] [address], [place] [address] Oct, 2014 [facility] [address] [id number] [address] [place] [address], [place] [address] Oct, [facility] [address] [id number] [address] [place] [address], [place] [address] Oct, 2014 [facility] [address] [id number] [address] [place] [address], [place] [address] Oct, 2014 [facility] [address] [id number] [address] [place] [address], [place] [address] Oct, [facility] [address] [id number] [address] [place] [address], [place] [address] Oct, [facility] [address] [id number] [address] [place] [address], [place] [address] Oct, [facility] [address] [id number] [address] [place] [address], [place] [address] Oct, [facility] [address] [id number] [address] [place] [address], [place] [address] Sep, [facility] [address] [id number] [address] [place] [address], [place] [address] Sep, [facility] [address] [id number] [address] [place] [address], [place] [address] Sep, [facility] [address] [id number] [address] [place] [address], [place] [address] Sep, [facility] [address] [id number] [address] [place] [address], [place] [address] Sep, [facility] [address] [id number] [address] [place] [address], [place] [address] Sep, [facility] [address] [id number] [address] [place] [address], [place] [address] Sep, [facility] [address] [id number] [address] [place] [address], [place] [address] Sep, [facility] [address] [id number] [address] [place] [address], [place] [address] Sep, [facility] [address] [id number] [address] [place] [address], [place] [address] Sep, [facility] [address] [id number] [address] [place] [address], [place] [address] Sep, [facility] [address] [id number] [address] [place] [address], [place] [address] Sep, [facility] [address] [id number] [address] [place] [address], [place] [address] Sep, [facility] [address] [id number] [address] [place] [address], [place] [address] Sep, [facility] [address] [id number] [address] [place] [address], [place] [address] Sep, [facility] [address] [id number] [address] [place] [address], [place] [address] Sep, [facility] [address] [id number] [address] [place] [address], [place] [address] Aug, [facility] [address] [id number] [address] [place] [address], [place] [address] 31 Aug, 2014 [facility] [address] [id number] [address] [place] [address], [place] [address] 31 Aug, 2014 [facility] [address] [id number] [address] [place] [address], [place] [address] 31 Aug, 2014 [facility] [address] [id number] [address] [place] [address], [place] [address] 31 Aug, 2014 [facility] [address] [id number] [address] [place] [address], [place] [address] 31 Aug, 2014 [facility] [address] [id number] [address] [place] [address], [place] [address] Aug, [facility] [address] [id number] [facility] [place] [address] Aug, [facility] [address] [id number] [facility] [place] [address] Aug, [facility] [address] [id number] [facility] [place] [address] Aug, [facility] [address] [id number] [address] [place] [address], [place] [address] Aug, [facility] [address] [facility] [id number] Aug, [facility] [address] [id number] [address] [place] [address], [place] [address] Aug, [facility] [address] [id number] [address] [place] [address], [place] [address] Aug, [facility] [address] [id number] [address] [place] [address], [place] [address] Aug, [facility] [address] [id number] [address] [place] [address], [place] [address] Aug, [facility] [address] [id number] [address] [place] [address], [place] [address] Aug, [facility] [address] [id number] [address] [place] [address], [place] [address] Aug, [facility] [address] [id number] [address] [place] [address], [place] [address] Aug, [facility] [address] [id number] [address] [place] [address], [place] [address] Aug, [facility] [address] [id number] [address] [place] [address], [place] [address] Aug, [facility] [address] [id number] [address] [place] [address], [place] [address] Aug, [facility] [address] [id number] [address] [place] [address] [address] Aug, [facility] [address] [id number] [address] [place] [address], [place] [address] Aug, [facility] [address] [id number] [address] [place] [address], [place] [address] Aug, [facility] [address] [id number] [address] [place] [address], [place] [address] Aug, [facility] [address] [id number] [address] [place] [address], [place] [address] Aug, [facility] [address] [id number] [address] [place] [address], [place] [address] Aug, [facility] [address] [id number] [address] [place] [address], [place] [address] Aug, [facility] [address] [id number] [address] [place] [address], [place] [address] Aug, [facility] [address] [id number] [address] [place] [address], [place] [address] Jul, [facility] [address] [id number] [address] [place] [address], [place] [address] Jul, [facility] [address] [id number] [address] [place] [address], [place] [address] Jul, [facility] [address] [id number] [address] [place] [address], [place] [address] Jul, [facility] [address] [id number] [address] [place] [address], [place] [address] Jul, [facility] [address] [id number] [address] [place] [address], [place] [address] Jul, [facility] [address] [id number] [address] [place] [address], [place] [address] Jul, [facility] [address] [id number] [address] [place] [address], [place] [address] Jul, [facility] [address] [id number] [address] [place] [address], [place] [address] Jul, [facility] [address] [id number] [address] [place] [address], [place] [address] Jul, [facility] [address] [id number] [address] [place] [address], [place] [address] Jun, [facility] [address] [id number] [address] [place] [address], [place] [address] Jun, [facility] [address] [id number] [address] [place] [address], [place] [address] Jun, [facility] [address] [id number] [address] [place] [address], [place] [address] Jun, [facility] [address] [id number] [address] [place] [address], [place] [address] Jun, [facility] [address] [id number] [address] [place] [address], [place] [address] Jun, [facility] [address] [id number] [address] [place] [address], [place] [address] Jun, [facility] [address] [id number] [address] [place] [address], [place] [address] Jun, [facility] [address] [id number] [address] [place] [address], [place] [address] Jun, [facility] [address] [id number] [address] [place] [address], [place] [address] Jun, [facility] [address] [id number] [address] [place] [address], [place] [address] 29 May, 2014 [facility] [address] [id number] [address] [place] [address], [place] [address] 29 May, 2014 [facility] [address] [id number] [address] [place] [address], [place] [address] May, [facility] [address] [id number] [address] [place] [address], [place] [address] May, 2013 [facility] [address] [id number] [facility] [place] [address] 17 May, 2013 [facility] [address] [id number] [address] [place] [address], [place] [address] 17 May, 2013 [facility] [address] [id number] [address] [place] [address], [place] [address] 15 May, 2013 [facility] [address] [id number] [address] [place] [address], [place] [address] 15 May, 2013 [facility] [address] [id number] [address] [place] [address], [place] [address] 15 May, 2013 [facility] [address] [id number] [address] [place] [address], [place] [address] 15 May, 2013 [facility] [address] [id number] [address] [place] [address], [place] [address] 10 May, 2013 [facility] [address] [id number] [address] [place] [address], [place] [address] 10 May, 2013 [facility] [address] [id number] [address] [place] [address], [place] [address] 09 May, 2013 [facility] [address] [id number] [address] [place] [address], [place] [address] 09 May, 2013 [facility] [address] [id number] [address] [place] [address], [place] [address] May, 2013 [facility] [address] [id number] [address] [place] [address], [place] [address] May, 2013 [facility] [address] [id number] [address] [place] [address], [place] [address] Apr, [facility] [address] [id number] [address] [place] [address], [place] [address] Apr, [facility] [address] [id number] [address] [place] [address], [place] [address] Apr, [facility] [address] [id number] [address] [place] [address], [place] [address] Apr, [facility] [address] [id number] [facility] [place] [address] Apr, [facility] [address] [id number] [address] [place] [address], [place] [address] Apr, [facility] [address] [id number] [address] [place] [address], [place] [address] Apr, [facility] [address] [id number] [address] [place] [address], [place] [address] Apr, [facility] [address] [id number] [address] [place] [address], [place] [address] Apr, [facility] [address] [id number] [address] [place] [address], [place] [address] Apr, [facility] [address] [id number] [address] [place] [address], [place] [address] Apr, [facility] [address] [id number] [address] [place] [address], [place] [address] Apr, [facility] [address] [id number] [address] [place] [address], [place] [address] Apr, [facility] [address] [id number] [address] [place] [address], [place] [address] Apr, [facility] [address] [id number] [address] [place] [address], [place] [address] Apr, [facility] [address] [id number] [address] [place] [address], [place] [address] Mar, [facility] [address] [id number] [address] [place] [address], [place] [address] Mar, [facility] [address] [id number] [address] [place] [address], [place] [address] Mar, [facility] [address] [id number] [address] [place] [address], [place] [address] Mar, [facility] [address] [id number] [facility] [place] [address] Mar, 2013 [facility] [address] [id number] [address] [place] [address], [place] [address] Mar, 2013 [facility] [address] [id number] [address] [place] [address], [place] [address] Mar, 2013 [facility] [address] [id number] [address] [place] [address], [place] [address] Mar, 2013 [facility] [address] [id number] [address] [place] [address], [place] [address] Mar, 2013 [facility] [address] [id number] [address] [place] [address], [place] [address] Mar, 2013 [facility] [address] [id number] [address] [place] [address], [place] [address] Mar, 2013 [facility] [address] [id number] [address] [place] [address], [place] [address] Mar, 2013 [facility] [address] [id number] [address] [place] [address], [place] [address] Mar, 2013 [facility] [address] [id number] [address] [place] [address], [place] [address] Mar, 2013 [facility] [address] [id number] [address] [place] [address], [place] [address] Mar, 2013 [facility] [address] [id number] [address] [place] [address], [place] [address] Mar, 2013 [facility] [address] [id number] [address] [place] [address], [place] [address] Mar, [facility] [address] [id number] [address] [place] [address], [place] [address] Mar, [facility] [address] [id number] [address] [place] [address], [place] [address] Feb, [facility] [address] [id number] [address] [place] [address], [place] [address] Feb, [facility] [address] [id number] [facility] [place] [address] Feb, [facility] [address] [id number] [facility] [place] [address] Feb, [facility] [address] [id number] [facility] [place] [address] Feb, [facility] [address] [id number] [address] [place] [address], [place] [address] Feb, [facility] [address] [id number] [address] [place] [address], [place] [address] Feb, [facility] [address] [id number] [address] [place] [address], [place] [address] Feb, [facility] [address] [id number] [address] [place] [address], [place] [address] Feb, [facility] [address] [id number] [address] [place] [address], [place] [address] Feb, [facility] [address] [id number] [address] [place] [address], [place] [address] Feb, [facility] [address] [id number] [address] [place] [address], [place] [address] Feb, [facility] [address] [id number] [address] [place] [address], [place] [address] Feb, [facility] [address] [id number] [address] [place] [address], [place] [address] Feb, [facility] [address] [id number] [address] [place] [address], [place] [address] January, [facility] [address] [id number] [address] [place] [address], [place] [address] January, [facility] [address] [id number] [address] [place] [address], [place] [address] January, [facility] [address] [id number] [address] [place] [address], [place] [address] January, [facility] [address] [id number] [facility] [place] [address] January, [facility] [address] [id number] [address] [place] [address], [place] [address] January, [facility] [address] [id number] [address] [place] [address], [place] [address] January, [facility] [address] [id number] [address] [place] [address], [place] [address] January, [facility] [address] [id number] [address] [place] [address], [place] [address] January, [facility] [address] [id number] [address] [place] [address], [place] [address] January, [facility] [address] [id number] [address] [place] [address], [place] [address] January, [facility] [address] [id number] [address] [place] [address], [place] [address] January, [facility] [address] [id number] [address] [place] [address], [place] [address] January, [facility] [address] [id number] [address] [place] [address], [place] [address] January, [facility] [address] [id number] [address] [place] [address], [place] [address] Dec, [facility] [address] [id number] [address] [place] [address], [place] [address] Dec, [facility] [address] [id number] [address] [place] [address], [place] [address] Dec, [facility] [address] [id number] [address] [place] [address], [place] [address] Dec, [facility] [address] [id number] [address] [place] [address], [place] [address] Dec, [facility] [address] [id number] [facility] [place] [address] Dec, [facility] [address] [id number] [facility] [place] [address] Dec, [facility] [address] [id number] [facility] [place] [address] Dec, [facility] [address] [id number] [facility] [place] [address] Dec, [facility] [address] [id number] [facility] [place] [address] Dec, [facility] [address] [id number] [facility] [place] [address] Nov, [facility] [address] [id number] [address] [place] [address], [place] [address] Nov, [facility] [address] [id number] [address] [place] [address], [place] [address] Nov, [facility] [address] [id number] [address] [place] [address], [place] [address] Nov, [facility] [address] [id number] [address] [place] [address], [place] [address] Nov, [facility] [address] [id number] [address] [place] [address], [place] [address] Nov, [facility] [address] [id number] [address] [place] [address], [place] [address] Nov, [facility] [address] [id number] [address] [place] [address], [place] [address] 05 Nov, 2013 [facility] [address] [id number] [address] [place] [address], [place] [address] Nov, [facility] [address] [id number] [address] [place] [address], [place] [address] Nov, [facility] [address] [id number] [address] [place] [address], [place] [address] Oct, [facility] [address] [id number] [facility] [place] [address] Oct, [facility] [address] [id number] [address] [place] [address], [place] [address] Oct, [facility] [address] [id number] [address] [place] [address], [place] [address] Oct, [facility] [address] [id number] [address] [place] [address], [place] [address] Oct, [facility] [address] [id number] [address] [place] [address], [place] [address] Oct, [facility] [address] [id number] [address] [place] [address], [place] [address] Oct, [facility] [address] [id number] [address] [place] [address], [place] [address] Oct, [facility] [address] [id number] [address] [place] [address], [place] [address] Oct, [facility] [address] [id number] [address] [place] [address], [place] [address] Oct, [facility] [address] [id number] [address] [place] [address], [place] [address] Oct, [facility] [address] [id number] [address] [place] [address], [place] [address] Oct, [facility] [address] [id number] [address] [place] [address], [place] [address] Oct, [facility] [address] [id number] [address] [place] [address], [place] [address] Oct, [facility] [address] [id number] [address] [place] [address], [place] [address] Sep, [facility] [address] [id number] [address] [place] [address], [place] [address] Sep, [facility] [address] [id number] [address] [place] [address], [place] [address] 15 Sep, 2013 [facility] [address] [id number] [address] [place] [address], [place] [address] 15 Sep, 2013 [facility] [address] [id number] [address] [place] [address], [place] [address] Sep, [facility] [address] [id number] [address] [place] [address], [place] [address] Sep, [facility] [address] [id number] [address] [place] [address], [place] [address] Sep, [facility] [address] [id number] [address] [place] [address], [place] [address] Sep, [facility] [address] [id number] [address] [place] [address], [place] [address] Sep, [facility] [address] [id number] [address] [place] [address], [place] [address] Sep, [facility] [address] [id number] [address] [place] [address], [place] [address] Aug, [facility] [address] [id number] [address] [place] [address], [place] [address] Aug, [facility] [address] [id number] [address] [place] [address], [place] [address] Jul, [facility] [address] [id number] [address] [place] [address], [place] [address] Jul, [facility] [address] [id number] [address] [place] [address], [place] [address] Jul, [facility] [address] [id number] [address] [place] [address], [place] [address] Jul, [facility] [address] [id number] [address] [place] [address], [place] [address] Jul, [facility] [address] [id number] [address] [place] [address] Jul, [facility] [address] [id number] [address] [place] [address], [place] [address] Jul, [facility] [address] [id number] [address] [place] [address] Jul, [facility] [address] [id number] [address] [place] [address], [place] [address] Jul, [facility] [address] [id number] [address] [place] [address] Jul, [facility] [address] [id number] [address] [place] [address], [place] [address] Jul, [facility] [address] [id number] [address] [place] [address] Jul, [facility] [address] [id number] [address] [place] [address] Jul, [facility] [address] [id number] [address] [place] [address] Jul, [facility] [address] [id number] [address] [place] [address] Jul, [facility] [address] [id number] [address] [place] [address] Jul, [facility] [address] [id number] [address] [place] [address] Jul, [facility] [address] [id number] [address] [place] [address] Jul, [facility] [address] [id number] [address] [place] [address] Jul, [facility] [address] [id number] [address] [place] [address] Jun, [facility] [address] [id number] [address] [place] [address] Jun, [facility] [address] [id number] [address] [place] [address], [place] [address] 16 Jun, 2012 [facility] [address] [id number] [address] [place] [address], [place] [address] 16 Jun, 2012 [facility] [address] [id number] [address] [place] [address], [place] [address] 16 Jun, 2012 [facility] [address] [id number] [address] [place] [address], [place] [address] 16 Jun, 2012 [facility] [address] [id number] [address] [place] [address], [place] [address] 10 Jun, 2012 [facility] [address] [id number] [address] [place] [address], [place] [address] 10 Jun, 2012 [facility] [address] [id number] [address] [place] [address], [place] [address] 09 Jun, 2012 [facility] [address] [id number] [address] [place] [address], [place] [address] 09 Jun, 2012 [facility] [address] [id number] [address] [place] [address], [place] [address] 01 Jun, 2012 [facility] [address] [id number] [address] [place] [address], [place] [address] 26 May, 2012 [facility] [address] [id number] [address] [place] [address], [place] [address] 25 Sep, 2012 [facility] [address] [id number] [address] [place] [address], [place] [address] 19 Sep, 2012 [facility] [address] [id number] [address] [place] [address], [place] [address] 17 Sep, 2012 [facility] [address] [id number] [address] [place] [address], [place] [address] 11 Sep, 2012 [facility] [address] [id number] [address] [place] [address], [place] [address] 10 Sep, 2012 [facility] [address] [id number] [address] [place] [address], [place] [address] May, [facility] [address] [id number] [address] [place] [address], [place] [address] May, [facility] [address] [id number] [address] [place] [address], [place] [address] Apr, [facility] [address] [id number] [address] [place] [address], [place] [address] Apr, [facility] [address] [id number] [address] [place] [address], [place] [address] Apr, [facility] [address] [id number] [address] [place] [address], [place] [address] Apr, [facility] [address] [id number] [address] [place] [address], [place] [address] Apr, [facility] [address] [id number] [address] [place] [address], [place] [address] Mar, [facility] [address] [id number] [address] [place] [address], [place] [address] Mar, [facility] [address] [id number] [address] [place] [address], [place] [address] Mar, [facility] [address] [id number] [address] [place] [address], [place] [address] Mar, [facility] [address] [id number] [address] [place] [address], [place] [address] Mar, [facility] [address] [id number] [address] [place] [address], [place] [address] Mar, [facility] [address] [id number] [address] [place] [address], [place] [address] Mar, [facility] [address] [id number] [address] [place] [address], [place] [address] Mar, [facility] [address] [id number] [address] [place] [address], [place] [address] Feb, [facility] [address] [id number] [address] [place] [address], [place] [address] 10 Feb, 2013 [facility] [address] [id number] [address] [place] [address], [place] [address] January, [facility] [address] [id number] [address] [place] [address], [place] [address] January, [facility] [address] [id number] [address] [place] [address], [place] [address] Dec, [facility] [address] [id number] [address] [place] [address], [place] [address] Dec, [facility] [address] [id number] [address] [place] [address], [place] [address] Nov, [facility] [address] [id number] [address] [place] [address], [place] [address] Nov, [facility] [address] [id number] [address] [place] [address], [place] [address] Nov, [facility] [address] [id number] [address] [place] [address], [place] [address] Nov, [facility] [address] [id number] [address] [place] [address], [place] [address] Oct, [facility] [address] [id number] [address] [place] [address], [place] [address] Oct, [facility] [address] [id number] [address] [place] [address], [place] [address] Oct, [facility] [address] [id number] [address] [place] [address], [place] [address] Oct, [facility] [address] [id number] [address] [place] [address], [place] [address] 16 Oct, 2012 [facility] [address] [id number] [address] [place] [address], [place] [address] 14 Oct, 2012 [facility] [address] [id number] [address] [place] [address], [place] [address] 08 Oct, 2012 [facility] [address] [id number] [address] [place] [address], [place] [address] 07 Oct, 2012 [facility] [address] [id number] [address] [place] [address], [place] [address] 03 Oct, 2012 [facility] [address] [id number] [address] [place] [address], [place] [address] 30 Sep, 2012 [facility] [address] [id number] [address] [place] [address], [place] [address] Sep, [facility] [address] [id number] [address] [place] [address], [place] [address] Sep, [facility] [address] [id number] [address] [place] [address], [place] [address] Sep, [facility] [address] [id number] [address] [place] [address], [place] [address] Sep, [facility] [address] [id number] [address] [place] [address], [place] [address] Sep, [facility] [address] [id number] [address] [place] [address], [place] [address] Sep, [facility] [address] [id number] [address] [place] [address], [place] [address] Sep, [facility] [address] [id number] [address] [place] [address], [place] [address] Aug, [facility] [address] [id number] [address] [place] [address], [place] [address] Aug, [facility] [address] [id number] [address] [place] [address], [place] [address] Aug, [facility] [address] [id number] [address] [place] [address], [place] [address] Aug, [facility] [address] [id number] [address] [place] [address], [place] [address] Aug, [facility] [address] [id number] [address] [place] [address], [place] [address] Aug, [facility] [address] [id number] [address] [place] [address], [place] [address] Aug, [facility] [address] [id number] [address] [place] [address], [place] [address] Aug, [facility] [address] [id number] [address] [place] [address], [place] [address] Jul, [facility] [address] [id number] [address] [place] [address], [place] [address] Jul, [facility] [address] [id number] [address] [place] [address], [place] [address] Jul, [facility] [address] [id number] [address] [place] [address], [place] [address] Jul, [facility] [address] [id number] [address] [place] [address], [place] [address] Jul, [facility] [address] [id number] [address] [place] [address], [place] [address] Jul, [facility] [address] [id number] [address] [place] [address], [place] [address] Jun, [facility] [address] [id number] [address] [place] [address], [place] [address] Jun, [facility] [address] [id number] [address] [place] [address], [place] [address] Jun, [facility] [address] [id number] [address] [place] [address], [place] [address] Jun, [facility] [address] [id number] [address] [place] [address], [place] [address] Jun, [facility] [address] [id number] [address] [place] [address], [place] [address] Jun, [facility] [address] [id number] [address] [place] [address] Jun, [facility] [address] [id number] [address] [place] [address], [place] [address] Jun, [facility] [address] [id number] [address] [place] [address], [place] [address] Jun, [facility] [address] [id number] [address] [place] [address], [place] [address] 26 May, 2012 [facility] [address] [id number] [address] [place] [address], [place] [address] 24 May, 2012 [facility] [address] [id number] [address] [place] [address], [place] [address] May, [facility] [address] [id number] [address] [place] [address], [place] [address] Apr, [facility] [address] [id number] [address] [place] [address], [place] [address] Apr, [facility] [address] [id number] [address] [place] [address], [place] [address] Apr, [facility] [address] [id number] [address] [place] [address], [place] [address] Apr, [facility] [address] [id number] [address] [place] [address], [place] [address] Apr, [facility] [address] [id number] [address] [place] [address], [place] [address] Apr, [facility] [address] [id number] [address] [place] [address], [place] [address] Mar, [facility] [address] [id number] [address] [place] [address], [place] [address] Mar, [facility] [address] [id number] [address] [place] [address], [place] [address] Mar, [facility] [address] [id number] [address] [place] [address], [place] [address] Mar, [facility] [address] [id number] [address] [place] [address], [place] [address] Feb, [facility] [address] [id number] [address] [place] [address], [place] [address] Feb, [facility] [address] [id number] [address] [place] [address], [place] [address] Feb, [facility] [address] [id number] [address] [place] [address], [place] [address] Feb, [facility] [address] [id number] [address] [place] [address], [place] [address] Feb, [facility] [address] [id number] [address] [place] [address], [place] [address] January, [facility] [address] [id number] [address] [place] [address], [place] [address] January, [facility] [address] [id number] [address] [place] [address], [place] [address] January, [facility] [address] [id number] [address] [place] [address], [place] [address] January, [facility] [address] [id number] [address] [place] [address], [place] [address] January, [facility] [address] [id number] [address] [place] [address], [place] [address] January, [facility] [address] [id number] [address] [place] [address], [place] [address] Dec, [facility] [address] [id number] [address] [place] [address], [place] [address] Dec, [facility] [address] [id number] [address] [place] [address], [place] [address] Dec, [facility] [address] [id number] [address] [place] [address], [place] [address] Dec, [facility] [address] [id number] [address] [place] [address], [place] [address] Dec, [facility] [address] [id number] [address] [place] [address], [place] [address] 27 Nov, 2011 [facility] [address] [id number] [address] [place] [address], [place] [address] 14 Nov, 2011 [facility] [address] [id number] [address] [place] [address], [place] [address] 12 Nov, 2011 [facility] [address] [id number] [address] [place] [address], [place] [address] 07 Nov, 2011 [facility] [address] [id number] [address] [place] [address], [place] [address] 29 Oct, 2011 [facility] [address] [id number] [address] [place] [address], [place] [address] 28 Oct, 2011 [facility] [address] [id number] [address] [place] [address], [place] [address] 24 Oct, 2011 [facility] [address] [id number] [address] [place] [address], [place] [address] 13 Oct, 2011 [facility] [address] [id number] [address] [place] [address], [place] [address] 08 Oct, 2011 [facility] [address] [id number] [address] [place] [address], [place] [address] Sep, [facility] [address] [id number] [address] [place] [address], [place] [address] Sep, [facility] [address] [id number] [address] [place] [address], [place] [address] Sep, [facility] [address] [id number] [address] [place] [address], [place] [address] Sep, [facility] [address] [id number] [address] [place] [address], [place] [address] Sep, [facility] [address] [id number] [address] [place] [address], [place] [address] Sep, [facility] [address] [id number] [address] [place] [address] [address] Aug, [facility] [address] [id number] [address] [place] [address], [place] [address] Aug, [facility] [address] [id number] [address] [place] [address], [place] [address] Aug, [facility] [address] [id number] [address] [place] [address], [place] [address] Jul, [facility] [address] [id number] [address] [place] [address], [place] [address] Jul, [facility] [address] [id number] [address] [place] [address], [place] [address] Jul, [facility] [address] [id number] [address] [place] [address], [place] [address] Jul, [facility] [address] [id number] [address] [place] [address], [place] [address] Jun, [facility] [address] [id number] [address] [place] [address], [place] [address] Jun, [facility] [address] [id number] [address] [place] [address], [place] [address] Jun, [facility] [address] [id number] [address] [place] [address], [place] [address] Jun, [facility] [address] [id number] [address] [place] [address], [place] [address] Jun, [facility] [address] [id number] [address] [place] [address], [place] [address] Jun, [facility] [address] [id number] [address] [place] [address], [place] [address] Mar, [facility] [address] [id number] [address] [place] [address], [place] [address] Dec, [facility] [address] [id number] [address] [place] [address], [place] [address] Dec, [facility] [address] [id number] [address] [place] [address], [place] [address] 18 Nov, 2010 [facility] [address] [id number] [address] [place] [address], [place] [address] 16 Nov, 2010 [facility] [address] [id number] [address] [place] [address], [place] [address] 10 Sep, 2010 [facility] [address] [id number] [address] [place] [address], [place] [address] 31 Aug, 2010 [facility] [address] [id number] [address] [place] [address], [place] [address] 29 Aug, 2010 [facility] [address] [id number] [address] [place] [address], [place] [address] 29 Aug, 2010 [facility] [address] [id number] [address] [place] [address], [place] [address] 29 Aug, 2010 [facility] [address] [id number] [address] [place] [address], [place] [address] 27 Aug, 2010 [facility] [address] [id number] [address] [place] [address], [place] [address] 14 Aug, 2010 [facility] [address] [id number] [address] [place] [address], [place] [address] 08 Aug, 2010 [facility] [address] [id number] [address] [place] [address], [place] [address] 08 Aug, 2010 [facility] [address] [id number] [address] [place] [address], [place] [address] 07 Aug, 2010 [facility] [address] [id number] [address] [place] [address], [place] [address] 06 Aug, 2010 [facility] [address] [id number] [address] [place] [address], [place] [address] 06 Aug, 2010 [facility] [address] [id number] [address] [place] [address], [place] [address] Aug, [facility] [address] [id number] [address] [place] [address], [place] [address] 30 Jul, 2010 [facility] [address] [id number] [address] [place] [address], [place] [address] Jul, [facility] [address] [id number] [address] [place] [address], [place] [address] Jul, [facility] [address] [id number] [address] [place] [address], [place] [address] Jul, [facility] [address] [id number] [address] [place] [address], [place] [address] Jul, [facility] [address] [id number] [address] [place] [address], [place] [address] Jul, [facility] [address] [id number] [address] [place] [address], [place] [address] 24 Jun, 2010 [facility] [address] [id number] [address] [place] [address], [place] [address] Jun, [facility] [address] [id number] [address] [place] [address], [place] [address] Jun, [facility] [address] [id number] [address] [place] [address], [place] [address] Jun, [facility] [address] [id number] [address] [place] [address], [place] [address] Apr, [facility] [address] [id number] [address] [place] [address], [place] [address] Mar, [facility] [address] [id number] [address] [place] [address], [place] [address] Feb, [facility] [address] [id number] [address] [place] [address], [place] [address] January, [facility] [address] [id number] [address] [place] [address], [place] [address] 15 Dec, 2009 [facility] [address] [id number] [address] [place] [address], [place] [address] 11 Nov, 2009 [facility] [address] [id number] [address] [place] [address] Aug, [facility] [address] [id number] [address] [place] [address] Aug, [facility] [address] [id number] [address] [place] [address] Aug, [facility] [address] [id number] [address] [place] [address] Jul, [facility] [address] [id number] [address] [place] [address] Jul, [facility] [address] [id number] [address] [place] [address], [place] [address] Jul, [facility] [address] [id number] [address] [place] [address] Jun, [facility] [address] [id number] [address] [place] [address] Jun, [facility] [address] [id number] [address] [place] [address] Jun, [facility] [address] [id number] [address] [place] [address] Jun, [facility] [address] [id number] [address] [place] [address] Jun, [facility] [address] [id number] [address] [place] [address] Jun, [facility] [address] [id number] [address] [place] [address] Apr, [facility] [address] [id number] [address] [place] [address] Apr, [facility] [address] [id number] [address] [place] [address] Feb, [facility] [address] [id number] [address] [place] [address] January, [facility] [address] [id number] [address] [place] [address] Dec, IMMUNIZATIONS No Known Immunizations SOCIAL HISTORY [...] 2009 Surgical History colonoscopy 2009 ([facility]), 2013 ([facility] ) Surgical History heart cath: CAD w/ [...] History inability to urinate 09/16/15 Hospitalization History [facility] health ea rly 1999's Hospitalization History hyperkalemia 10/2017 Hospitalization History fluid in lung Hospitalization History stroke, 02/2020
--- OUTSIDE RECORDS SUMMARY | 2020-04-11 11:07 | XMS REPORT ---
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 Name Role Phone NOEMI WASHBURN Unavailable PROBLEMS Type Condition ICD9-CM Code [id number] Code Onset Dates Condition S tatus SNOMED Code Problem Insomnia, unspecified type G47.00 Act sharon 792890373 Problem Morbid obesity E66.01 Active 97178 6002 Problem Anxiety F41.9 Active 35348869 Problem Diabetic polyneuropathy associated with type 2 d iabetes mellitus E11.42 Active 20344802 Problem Essential hypertension I10 Active 73420066 Problem Bilateral primary osteoarthritis of knee M17.0 Active 890652252 Problem Polyneuropathy associated with underlying disease G63 Active 233059106 Problem Psychophysiological insomnia F51.04 A ctive 056229040 Problem Leukocytosis D72.829 Active 4509505 06 Problem Chronic diastolic (congestive) heart failure I50.3 2 Active 788937263 Problem Diabetes E11.9 Active 44782658 Problem Bipolar I disorder, most recent episode (or curr ent) mixed, moderate F31.62 Active 56776617 Problem Reactive airway disease J45.909 Active 022350169094 Problem Bipolar disorder, in partial remission, most rec ent episode depressed F31.75 Active 93129647 Problem Falling R29.6 Active 076536392 Problem Primary osteoarthritis of right knee M17.11 Active [id number] Problem Cough R05 Active 12937359 Problem Pure hypercholesterolemia E78.00 Acti ve 083934771 Problem Dysuria R30.0 Active 63237935 Problem Mild cognitive impairment G31.84 Acti ve 631847895 Problem Benign prostatic hyperplasia with lower urinary tract symptoms, unspecified morphology N40.1 Active 62118 6007 Problem Other iron deficiency anemia D50.8 A ctive 66662161 Problem Eustachian tube dysfunction, unspecified laterality H69.80 Active 19316874 Problem Bipolar disorder F31.9 Active 137 05348 Problem Chronic pain G89.29 Active 2373086 1 Problem Skin cancer C44.90 Active 71877167 7 Problem DM neuro manif type II E11.49 Active 50886472 Problem Type 2 diabetes mellitus with diabetic neuropathy, uns pecified E11.40 Active 46703008 Problem [facility] (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 Z79.4 Active 939080053 Problem Mood disorder F39 Active 175202 05 Problem Agitation R45.1 Active 654542097 Problem Anemia of chronic illness D63.8 Acti ve 782734453 Problem Lymphocytosis D72.820 Active 372779 09 Problem Dysphagia, unspecified type R13.10 Ac tive 68591005 Problem Retinal edema H35.81 Active 204974 6 Problem Chronic lymphocytic leukemia C91.10 A ctive 77307998 Problem Pressure ulcer of other site, stage 3 L89.893 Active 811312208 Problem 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 Active 140510256 Problem Eye exam abnormal R93.8 Active 16 3046229 Problem Bipolar I disorder, most recent episode depressed, moderat e F31.32 Active 365449415 Problem Gastroesophageal reflux disease without esophagitis K21.9 Active 353051644 Problem Hypokalemia E87.6 Active 27192559 Problem Other secondary acute gout, 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 0 Active 823307673 Problem PVD (peripheral vascular disease) I73.9 Active 383698627 ALLERGIES No Information ENCOUNTERS Encounter Location Date Diagnosis [place] [address] [facility] [id number] [address] [place] [phone] Apr, [place] [address] [facility] [id number] [address] [place] [phone] Mar, [facility] [address] [facility] [id number] [address] [place] [phone] Mar, [facility] [address] [facility] [id number] [address] [place] [phone] Mar, [facility] [address] [facility] [id number] [address] [place] [phone] Mar, Mood disorder F39 [facility] [address] [facility] [id number] [address] [place] [phone] Mar, [facility] [address] [facility] [id number] [address] [place] [id number] 26 Feb, 2020 Dysphagia, unspecified type R13.10 [place] [address] [facility] [id number] [address] [place] [phone] 25 Feb, 2020 Bipolar I disorder, most rec ent episode depressed, moderate F31.32 ; Anxiety F41.9 and Mild cognitive impairment G31.84 [place] [address] [facility] [id number] [address] [place] [phone] 24 Feb, 2020 [place] [address] [facility] [id number] [address] [place] [phone] 24 Feb, 2020 Gastroesophageal reflux dise ase without esophagitis K21.9 [place] [address] [facility] [id number] [address] [place] [id number] 23 Feb, 2020 [place] [address] [facility] [id number] [address] [place] [phone] 18 Feb, 2020 Bipolar I disorder, most rec ent episode depressed, moderate F31.32 ; Anxiety F41.9 and Mild cognitive impairment G31.84 [place] [address] [place] [id number] [address] [place] [id number] 17 Feb, 2020 Chronic pain G89.29 [place] [address] [place] [id number] [address] [place] [id number] Feb, Agitation R45.1 [place] [address] [place] [id number] [address] [place] [phone] 17 Feb, 2020 PVD (peripheral vascular dis ease) I73.9 ; Status post CVA Z86.73 ; Status post carotid endarterectomy Z98.890 ; Vertigo R42 ; Mild cognitive impairment G31.84 ; Type 2 diabetes mellitus with diabetic neuropathy, unspecified E11.40 and Essential hypertension I10 [place] [address] [place] [id number] [address] [place] [phone] Feb, [place] [address] [facility] [id number] [address] [place] [phone] Feb, [facility] [address] [id number] [address] [place] [address] January, [facility] [address] [facility] [id number] [address] [place] [phone] January, Chronic pain G89.29 [facility] [address] [facility] [id number] [address] [place] [id number] Dec, [facility] [address] [id number] [address] [place] [address] Dec, Chronic pain G89.29 [facility] [address] [facility] [id number] [address] [place] [phone] Dec, [facility] [address] [facility] [id number] [address] [place] [phone] Dec, [facility] [address] [facility] [id number] [address] [place] [phone] Dec, Gastroesophageal reflux dise ase without esophagitis K21.9 and Pure hypercholesterolemia E78.00 [facility] [address] [facility] [id number] [address] [place] [phone] Dec, Mood disorder F39 [place] [address] [facility] [id number] [address] [place] [phone] Nov, Other secondary acute gout, 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 [facility] [address] [facility] [id number] [address] [place] [phone] Nov, Gastroesophageal reflux dise ase without esophagitis K21.9 [facility] [address] [id number] [address] [place] [address] Nov, Chronic pain G89.29 [facility] [address] [facility] [id number] [address] [place] [id number] Nov, Bipolar I disorder, most rec ent episode depressed, moderate F31.32 ; Anxiety F41.9 and Mild cognitive impairment G31.84 [facility] [address] [id number] [address] [place] [phone] Nov, [facility] [address] [id number] [address] [place] [phone] Nov, Syncope, unspecified syncope type R55 [facility] [address] [id number] [address] [place] [phone] Nov, Mood disorder F39 [facility] [address] [id number] [address] [place] [id number] Oct, Chronic pain G89.29 [facility] [address] [id number] [address] [place] [id number] Oct, [facility] [address] [id number] [address] [place] [phone] Oct, Mood disorder F39 [facility] [address] [facility] [id number] [address] [place] [phone] Oct, [facility] [address] [id number] [address] [place] [phone] Oct, Bipolar disorder, in partial remission, most recent episode depressed F31.75 and Mild cognitive impairment G31.84 [facility] [address] [id number] [address] [place] [phone] Oct, Mood disorder F39 [facility] [address] [facility] [id number] [address] [place] [phone] Sep, [facility] [address] [id number] [address] [place] [phone] Sep, Mood disorder F39 [facility] [address] [id number] [address] [place] [phone] Sep, Bipolar disorder, in partial remission, most recent episode depressed F31.75 and Mild cognitive impairment G31.84 [facility] [address] [facility] [id number] [address] [place] [phone] Sep, Mood disorder F39 [facility] [address] [id number] [address] [place] [phone] Sep, [facility] [address] [id number] [address] [place] [id number] Sep, Mood disorder F39 [facility] [address] [id number] [address] [place] [phone] Sep, [facility] [address] [id number] [address] [place] [id number] Aug, Mood disorder F39 [facility] [address] [id number] [address] [place] [phone] Aug, [facility] [address] [id number] [address] [place] [phone] Aug, [facility] [address] [id number] [address] [place] [phone] Aug, [facility] [address] [id number] [address] [place] [id number] Aug, [facility] [address] [id number] [address] [place] [id number] Aug, [facility] [address] [id number] [address] [place] [phone] Aug, [facility] [address] [id number] [address] [place] [id number] Aug, [facility] [address] [id number] [address] [place] [id number] Aug, Essential hypertension I10 [facility] [address] [id number] [address] [place] [id number] Aug, Bipolar disorder, in partial remission, most recent episode depressed F31.75 and Mild cognitive impairment G31.84 [facility] [address] [id number] [address] [place] [phone] Aug, Mood disorder F39 [facility] [address] [id number] [address] [place] [id number] Aug, [facility] [address] [id number] [address] [place] [phone] Aug, Bipolar disorder, in partial remission, most recent episode depressed F31.75 and Mild cognitive impairment G31.84 [facility] [address] [id number] [address] [place] [phone] Jul, Bipolar disorder, in partial remission, most recent episode depressed F31.75 and Mild cognitive impairment G31.84 [facility] [address] [id number] [address] [place] [id number] Jul, Psychophysiological insomnia F51.04 [facility] [address] [id number] [address] [place] [phone] Jul, [facility] [address] [id number] [address] [place] [id number] Jul, [facility] [address] [id number] [address] [place] [phone] Jul, [facility] [address] [id number] [address] [place] [id number] Jul, [facility] [address] [id number] [address] [place] [phone] Jul, [facility] [address] [id number] [address] [place] [phone] Jul, [facility] [address] [id number] [address] [place] [id number] Jul, Bipolar disorder, in partial remission, most recent episode depressed F31.75 and Mild cognitive impairment G31.84 [facility] [address] [id number] [address] [place] [phone] Jul, Chronic pain G89.29 ; Diabet es E11.9 ; Essential hypertension I10 ; Ill feeling R68.89 ; Local infection of the skin and subcutaneous tissue, unspecified L08.9 and Other injury of unspecified body region, initial encounter T14.8XXA [facility] [address] [id number] [address] [place] [address] Jun, Bipolar disorder, in partial remission, most recent episode depressed F31.75 and Mild cognitive impairment G31.84 [facility] [address] [id number] [address] [place] [id number] Jun, [facility] [address] [id number] [address] [place] [id number] Jun, Bipolar disorder, in partial remission, most recent episode depressed F31.75 and Mild cognitive impairment G31.84 [place] [address] [id number] [address] [place] [id number] Jun, Psychophysiological insomnia F51.04 [place] [address] [facility] [id number] [address] [place] [id number] Jun, Psychophysiological insomnia F51.04 ; Chronic pain G89.29 ; Bipolar I disorder, most recent episode (or current) mixed, moderate F31.62 ; 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 ; Polyneuropathy associated with underlying disease G63 ; Type 2 diabetes mellitus with diabetic neuropathy, unspecified E11.40 ; [facility] (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 Z79.4 and Hyperglycemia R73.9 [place] [address] [facility] [id number] [address] [place] [id number] Jun, Bipolar disorder, in partial remission, most recent episode depressed F31.75 and Mild cognitive impairment G31.84 [place] [address] [id number] [address] [place] [phone] Jun, [place] [address] [facility] [id number] [address] [place] [id number] Jun, Bipolar disorder F31.9 [facility] [address] [facility] [id number] [address] [place] [address] May, Bipolar disorder, in partial remission, most recent episode depressed F31.75 and Mild cognitive impairment G31.84 [place] [address] [facility] [id number] [address] [place] [address] May, [facility] [address] [id number] [address] [place] [address] Apr, Chronic pain G89.29 and Bipo lar disorder F31.9 [facility] [address] [id number] [address] [place] [address] Mar, Bipolar disorder F31.9 and C hronic pain G89.29 [facility] [address] [id number] [address] [place] [address] Feb, Bipolar disorder F31.9 [facility] [address] [facility] [id number] [address] [place] [address] Feb, Cellulitis of right upper ex tremity L03.113 and Skin abrasion T14.8XXA [facility] [address] [facility] [id number] [address] [place] [address] Feb, Bipolar disorder, in partial remission, most recent episode depressed F31.75 and Mild cognitive impairment G31.84 [facility] [address] [facility] [id number] [address] [place] [address] Feb, Chronic pain G89.29 [facility] [address] [facility] [id number] [address] [place] [id number] Feb, Bipolar disorder, in partial remission, most recent episode depressed F31.75 and Mild cognitive impairment G31.84 [facility] [address] [facility] [id number] [address] [place] [id number] January, Bipolar disorder, in partial remission, most recent episode depressed F31.75 and Mild cognitive impairment G31.84 [facility] [address] [facility] [id number] [address] [place] [address] January, Chronic pain G89.29 and Bipo lar disorder F31.9 [facility] [address] [id number] [address] [place] [address] January, Bipolar disorder, in partial remission, most recent episode depressed F31.75 and Mild cognitive impairment G31.84 [facility] [address] [facility] [id number] [address] [place] [phone] Dec, [facility] [address] [facility] [id number] [address] [place] [address] Dec, Chronic pain G89.29 and Bipo lar disorder F31.9 [facility] [address] [facility] [id number] [address] [place] [phone] Dec, Edema of both lower extremit ies R60.0 [facility] [address] [facility] [id number] [address] [place] [phone] Dec, Bipolar disorder F31.9 [facility] [address] [facility] [id number] [address] [place] [phone] Dec, Bipolar disorder, in partial remission, most recent episode depressed F31.75 and Mild cognitive impairment G31.84 [facility] [address] [facility] [id number] [address] [place] [phone] Nov, [facility] [address] [facility] [id number] [address] [place] [address] Nov, Chronic pain G89.29 [facility] [address] [facility] [id number] [address] [place] [id number] Nov, Bipolar disorder, in partial remission, most recent episode depressed F31.75 and Mild cognitive impairment G31.84 [facility] [address] [facility] [id number] [address] [place] [phone] Nov, Bipolar disorder F31.9 [facility] [address] [facility] [id number] [address] [place] [id number] 04 Nov, 2018 Encounter for Medicare annua [...] morphology N40.1 and Essential hypertension I10 [address] [id number] Oct, Chronic pain G89.[address] [id number] Oct, Diabetes E11.[address] [address] Oct, Bipolar I disorder, most rec ent episode (or current) mixed, moderate F31.62 and Mild cognitive impairment G31.[address] [address] Oct, Bipolar I disorder, most rec ent episode (or current) mixed, moderate F31.62 and Mild cognitive impairment G31.[address] [id number] Sep, Bipolar I disorder, most rec ent episode (or current) mixed, moderate F31.62 and Mild cognitive impairment G31.84 [place] [address] [address] Sep, [address] [id number] Sep, Diabetes E11.9 ; Hypoxia R09 .02 ; Hyperglycemia R73.9 ; Therapeutic drug monitoring Z51.81 ; BMI 50.0-59.9, adult Z68.43 and Skin cancer C44.[address] [id number] Sep, Chronic pain G89.[address] [id number] Sep, Bipolar I disorder, most rec ent episode (or current) mixed, moderate F31.62 [facility] [address] [id number] [address] [place] [phone] Sep, [facility] [address] [id number] [address] [place] [phone] Sep, [facility] [address] [id number] [address] [place] [id number] Aug, Chronic pain G89.29 [facility] [address] [id number] [address] [place] [id number] Aug, Bipolar I disorder, most rec ent episode (or current) mixed, moderate F31.62 [facility] [address] [id number] [address] [place] [address] Aug, Bipolar I disorder, most rec ent episode (or current) mixed, moderate F31.62 and Mild cognitive impairment G31.84 [place] [address] [facility] [id number] [address] [place] [address] Jul, [facility] [address] [id number] [address] [place] [id number] Jul, Chronic pain G89.29 [facility] [address] [id number] [address] [place] [id number] Jul, Bipolar I disorder, most rec ent episode (or current) mixed, moderate F31.62 and Mild cognitive impairment G31.84 [facility] [address] [facility] [id number] [address] [place] [id number] Jul, Bipolar I disorder, most rec ent episode (or current) mixed, moderate F31.62 and MCI (mild cognitive impairment) G31.84 [facility] [address] [id number] [address] [place] [phone] Jul, [facility] [address] [facility] [id number] [address] [place] [id number] Jul, [facility] [address] [facility] [id number] [address] [place] [id number] Jul, Bipolar I disorder, most rec ent episode (or current) mixed, moderate F31.62 [facility] [address] [id number] [address] [place] [id number] Jul, Chronic pain G89.29 [facility] [address] [id number] [address] [place] [address] Jun, Bipolar I disorder, most rec ent episode (or current) mixed, moderate F31.62 [facility] [address] [id number] [address] [place] [phone] Jun, Pre-procedure lab exam Z01.8 12 [facility] [address] [id number] [address] [place] [phone] Jun, [facility] [address] [id number] [place] [id number] Jun, [facility] [address] [id number] [address] [place] [id number] Jun, [facility] [address] [id number] [address] [place] [id number] Jun, Forgetfulness R68.89 ; Pre-s yncope R55 ; Localized edema R60.0 ; Other iron deficiency anemia D50.8 and BMI 50.0-59.9, adult Z68.43 [facility] [address] [id number] [address] [place] [id number] Jun, Chronic pain G89.29 [facility] [address] [id number] [address] [place] [id number] Jun, Chronic pain G89.29 [facility] [address] [id number] [address] [place] [id number] Jun, Bipolar I disorder, most rec ent episode (or current) mixed, moderate F31.62 [facility] [address] [id number] [address] [place] [phone] May, Chronic pain G89.29 [facility] [address] [id number] [address] [place] [phone] Apr, [place] [address] [id number] [place] [address] Apr, Chronic pain G89.29 [place] [address] [id number] [place] [address] Apr, Primary osteoarthritis of ri ght knee M17.11 [place] [address] [address] Mar, [place] [address] [address] Mar, BMI 50.0-59.9, adult Z68.43 and Bipolar disorder, in partial remission, most recent episode depressed F31.75 [place] [address] [address] Mar, Diabetes E11.9 ; Pure hyperc holesterolemia E78.00 ; Essential hypertension I10 ; Nausea with vomiting, unspecified R11.2 and Headache, unspecified headache type R51 [place] [address] [address] Mar, Bipolar I disorder, most rec ent episode (or current) mixed, moderate F31.62 [place] [address] [address] Mar, Bipolar I disorder, most rec ent episode (or current) mixed, moderate F31.62 [place] [address] [address] Mar, Chronic pain G89.29 [place] [address] [address] Mar, Bipolar I disorder, most rec ent episode (or current) mixed, moderate F31.62 [place] [address] [address] Feb, Bipolar I disorder, most rec ent episode (or current) mixed, moderate F31.62 [facility] [address] [facility] [id number] [address] [place] [phone] 14 Feb, 2018 Chronic pain G89.29 [facility] [address] [facility] [id number] [address] [place] [id number] 06 Feb, 2018 Decubitus ulcer of right josselin t, stage 3 L89.893 and BMI 50.0-59.9, adult Z68.43 [facility] [address] [facility] [id number] [address] [place] [phone] Feb, Bipolar I disorder, most rec ent episode (or current) mixed, moderate F31.62 [facility] [address] [facility] [id number] [address] [place] [phone] Feb, [facility] [address] [facility] [id number] [address] [place] [phone] January, [facility] [address] [facility] [id number] [address] [place] [address] January, Chronic pain G89.29 [facility] [address] [facility] [id number] [address] [place] [address] January, Bipolar I disorder, most rec ent episode (or current) mixed, moderate F31.62 [facility] [address] [facility] [id number] [address] [place] [phone] January, Bipolar I disorder, most rec ent episode (or current) mixed, moderate F31.62 [facility] [address] [facility] [id number] [address] [place] [phone] Dec, Bipolar I disorder, most rec ent episode (or current) mixed, moderate F31.62 and BMI 50.0-59.9, adult Z68.43 [facility] [address] [facility] [id number] [address] [place] [address] Dec, Bipolar I disorder, most rec ent episode (or current) mixed, moderate F31.62 [place] [address] [id number] [place] [address] Dec, Chronic pain G89.29 [facility] [id number] [address] [place] [address] Dec, DM neuro manif type II E11.4 9 ; Right flank pain R10.9 ; [facility] current use of opiate analgesic Z79.891 ; Encounter for medication monitoring Z51.81 and BMI 50.0-59.9, adult Z68.43 [place] [address] [id number] [place] [address] Dec, Bipolar I disorder, most rec ent episode (or current) mixed, moderate F31.62 [place] [address] [id number] [place] [address] Nov, Bipolar I disorder, most rec ent episode (or current) mixed, moderate F31.62 [place] [address] [place] [id number] [place] [address] Nov, Chronic pain G89.29 [place] [address] [id number] [place] [address] Nov, Bipolar I disorder, most rec ent episode (or current) mixed, moderate F31.62 [place] [address] [place] [id number] [place] [address] Nov, Hypokalemia E87.6 [place] [address] [id number] [place] [id number] Nov, Bipolar I disorder, most rec ent episode (or current) mixed, moderate F31.62 [place] [address] [id number] [place] [id number] Oct, Chronic pain G89.29 [place] [address] [place] [id number] [place] [address] Oct, BMI 50.0-59.9, adult Z68.43 and Bipolar I disorder, most recent episode (or current) mixed, moderate F31.62 [place] [address] [place] [id number] [place] [address] Oct, Bipolar I disorder, most rec ent episode (or current) mixed, moderate F31.62 [facility] [address] [facility] [id number] [address] [place] [id number] Oct, [facility] [address] [facility] [id number] [address] [place] [address] Oct, Hypokalemia E87.6 [facility] [address] [facility] [id number] [address] [place] [address] Oct, DM neuro manif type II E11.4 9 [facility] [address] [facility] [id number] [address] [place] [address] Oct, Bipolar I disorder, most rec ent episode (or current) mixed, moderate F31.62 [place] [address] [id number] [place] [phone] Oct, Bipolar I disorder, most rec ent episode (or current) mixed, moderate F31.62 [facility] [address] [facility] [id number] [address] [place] [address] 14 Oct, 2017 Hyperkalemia E87.5 ; Falling R29.6 ; BMI 50.0-59.9, adult Z68.43 and Acute left ankle pain M25.572 [place] [address] [facility] [id number] [address] [place] [address] Oct, DM neuro manif type II E11.4 9 [facility] [address] [facility] [id number] [address] [place] [phone] Oct, [facility] [id number] [place] [phone] Sep, Chronic pain G89.29 [facility] [id number] [place] [phone] Sep, [facility] [id number] [place] [id number] 25 Sep, 2017 Bilateral primary osteoarthr itis of knee M17.0 [place] [address] [facility] [id number] [address] [place] [phone] 18 Sep, 2017 Generalized edema R60.1 [facility] [address] [facility] [id number] [address] [place] [phone] 16 Sep, 2017 Bipolar I disorder, most rec ent episode (or current) mixed, moderate F31.62 [place] [address] [place] [id number] [place] [address] 15 Sep, 2017 Hypoxia R09.02 ; Other hyper volemia E87.79 ; Diabetes E11.9 ; Retinal edema H35.81 ; Hypokalemia E87.6 ; 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 ; Anemia of chronic illness D63.8 and BMI 50.0- 59.9, adult Z68.43 [place] [address] [place] [id number] [place] [address] 03 Sep, 2017 [place] [address] [place] [id number] [place] [address] Sep, Bipolar I disorder, most rec ent episode (or current) mixed, moderate F31.62 [place] [address] [place] [id number] [place] [id number] 28 Aug, 2017 Chronic pain G89.29 [place] [address] [place] [id number] [place] [address] Aug, Generalized edema R60.1 [facility] [address] [facility] [id number] [address] [place] [phone] 18 Aug, 2017 [place] [address] [place] [id number] [place] [phone] Aug, [place] [address] [place] [id number] [place] [phone] 14 Aug, 2017 Bipolar I disorder, most rec ent episode (or current) mixed, moderate F31.62 [place] [address] [place] [id number] [place] [phone] Aug, Bipolar I disorder, most rec ent episode (or current) mixed, moderate F31.62 [place] [address] [facility] [id number] [address] [place] [address] Aug, Chronic pain G89.29 [place] [address] [facility] [id number] [address] [place] [address] Jul, Bipolar I disorder, most rec ent episode (or current) mixed, moderate F31.62 [place] [address] [facility] [id number] [address] [place] [phone] Jul, Bipolar I disorder, most rec ent episode (or current) mixed, moderate F31.62 and BMI 60.0-69.9, adult Z68.44 [place] [address] [id number] [place] [address] Jul, Bipolar I disorder, most rec ent episode (or current) mixed, moderate F31.62 [place] [address] [facility] [id number] [address] [place] [address] Jul, Chronic pain G89.29 [place] [address] [place] [id number] [place] [phone] Jul, Bipolar I disorder, most rec ent episode (or current) mixed, moderate F31.62 [place] [address] [id number] [place] [address] Jun, Polyneuropathy associated wi th underlying disease G63 and Diabetes E11.9 [place] [address] [facility] [id number] [address] [place] [id number] Jun, Bipolar I disorder, most rec ent episode (or current) mixed, moderate F31.62 [place] [address] [facility] [id number] [address] [place] [id number] Jun, Chronic pain G89.29 [place] [address] [place] [id number] [place] [id number] May, Bipolar I disorder, most rec ent episode (or current) mixed, moderate F31.62 [facility] [address] [id number] [address] [place] [address] May, Bipolar I disorder, most rec ent episode (or current) mixed, moderate F31.62 [facility] [address] [id number] [address] [place] [id number] May, Diabetic polyneuropathy asso ciated with type 2 diabetes mellitus E11.42 [facility] [address] [id number] [address] [place] [phone] 18 May, 2017 Bipolar I disorder, most rec ent episode (or current) mixed, moderate F31.62 [facility] [address] [id number] [address] [place] [phone] May, Bipolar I disorder, most rec ent episode (or current) mixed, moderate F31.62 [facility] [address] [id number] [address] [place] [address] May, Chronic pain G89.29 [facility] [address] [id number] [address] [place] [phone] Apr, Bipolar I disorder, most rec ent episode (or current) mixed, moderate F31.62 [facility] [address] [id number] [address] [place] [phone] Apr, [facility] [address] [id number] [address] [place] [address] Apr, Chronic pain G89.29 and DM n euro manif type II E11.49 [facility] [address] [id number] [address] [place] [id number] Apr, [facility] [address] [id number] [address] [place] [phone] Apr, Bipolar I disorder, most rec ent episode (or current) mixed, moderate F31.62 [facility] [address] [id number] [address] [place] [phone] Apr, Chronic pain G89.29 [facility] [address] [facility] [id number] [address] [place] [phone] Apr, Iliotibial band syndrome, le ft M76.32 [facility] [address] [facility] [id number] [address] [place] [phone] Apr, Bipolar I disorder, most rec ent episode (or current) mixed, moderate F31.62 [facility] [address] [facility] [id number] [address] [place] [phone] Mar, Bipolar I disorder, most rec ent episode (or current) mixed, moderate F31.62 [place] [address] [facility] [id number] [address] [place] [phone] Mar, Bipolar I disorder, most rec ent episode (or current) mixed, moderate F31.62 [place] [address] [place] [id number] [place] [phone] Mar, [facility] [address] [facility] [id number] [address] [place] [phone] Mar, Bipolar I disorder, most rec ent episode (or current) mixed, moderate F31.62 [facility] [address] [facility] [id number] [address] [place] [phone] Mar, Chronic pain G89.29 [facility] [address] [facility] [id number] [address] [place] [phone] Mar, Bipolar I disorder, most rec ent episode (or current) mixed, moderate F31.62 [facility] [address] [facility] [id number] [address] [place] [phone] Mar, Bipolar I disorder, most rec ent episode (or current) mixed, moderate F31.62 [facility] [address] [facility] [id number] [address] [place] [phone] Mar, Acute pain of left knee M25. 562 ; Left hip pain M25.552 ; Generalized edema R60.1 and Tongue swelling R22.0 [facility] [address] [id number] [address] [place] [phone] Mar, [facility] [address] [facility] [id number] [address] [place] [phone] Feb, Chronic pain G89.29 [facility] [address] [facility] [id number] [address] [place] [address] Feb, Diabetes E11.9 [facility] [address] [facility] [id number] [address] [place] [address] January, Chronic pain G89.29 [facility] [address] [id number] [address] [place] [phone] January, [facility] [address] [facility] [id number] [address] [place] [phone] January, Bipolar I disorder, most rec ent episode (or current) mixed, moderate F31.62 [facility] [address] [facility] [id number] [address] [place] [phone] Dec, Bipolar I disorder, most rec ent episode (or current) mixed, moderate F31.62 [facility] [address] [facility] [id number] [address] [place] [phone] Dec, Chronic pain G89.29 [facility] [address] [facility] [id number] [address] [place] [phone] Dec, Bipolar I disorder, most rec ent episode (or current) mixed, moderate F31.62 [facility] [address] [facility] [id number] [address] [place] [phone] Dec, Diabetes E11.9 ; Essential h ypertension I10 ; Chronic pain G89.29 and Morbid obesity E66.01 [facility] [address] [facility] [id number] [address] [place] [id number] Dec, [facility] [address] [facility] [id number] [address] [place] [id number] Dec, Bipolar I disorder, most rec ent episode (or current) mixed, moderate F31.62 [facility] [address] [id number] [address] [place] [phone] Dec, Bipolar I disorder, most rec ent episode (or current) mixed, moderate F31.62 [facility] [address] [id number] [address] [place] [id number] Nov, Chronic pain G89.29 [facility] [address] [id number] [address] [place] [phone] Nov, Bipolar I disorder, most rec ent episode (or current) mixed, moderate F31.62 [facility] [address] [id number] [address] [place] [phone] Nov, [facility] [address] [facility] [id number] [address] [place] [phone] Nov, Bipolar I disorder, most rec ent episode (or current) mixed, moderate F31.62 [facility] [address] [facility] [id number] [address] [place] [phone] Nov, Bipolar I disorder, most rec ent episode (or current) mixed, moderate F31.62 [facility] [address] [facility] [id number] [address] [place] [phone] Nov, [facility] [address] [facility] [id number] [address] [place] [phone] Nov, [facility] [address] [facility] [id number] [address] [place] [phone] Nov, [facility] [address] [facility] [id number] [address] [place] [phone] Oct, Chronic pain G89.29 [facility] [address] [facility] [id number] [address] [place] [phone] Oct, Bipolar I disorder, most rec ent episode (or current) mixed, moderate F31.62 [facility] [address] [facility] [id number] [address] [place] [phone] Oct, [facility] [address] [id number] [address] [place] [id number] Oct, Chronic pain G89.29 ; Diabet es E11.9 ; Anxiety F41.9 and 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 [facility] [address] [facility] [id number] [address] [place] [id number] Oct, [facility] [address] [id number] [address] [place] [address] Oct, Diabetes E11.9 [facility] [address] [facility] [id number] [address] [place] [phone] Oct, Bipolar I disorder, most rec ent episode (or current) mixed, moderate F31.62 [facility] [address] [facility] [id number] [address] [place] [address] Sep, Chronic pain G89.29 [facility] [address] [facility] [id number] [address] [place] [phone] Sep, Chronic pain G89.29 [facility] [address] [facility] [id number] [address] [place] [phone] Aug, Chronic pain G89.29 [facility] [address] [facility] [id number] [address] [place] [phone] Jul, [facility] [address] [facility] [id number] [address] [place] [phone] Jul, Diabetes E11.9 [facility] [address] [id number] [address] [place] [id number] Jul, Chronic pain G89.29 [facility] [address] [facility] [id number] [address] [place] [id number] Jul, Bipolar I disorder, most rec ent episode (or current) mixed, moderate F31.62 [facility] [address] [facility] [id number] [address] [place] [phone] Jun, Bipolar I disorder, most rec ent episode (or current) mixed, moderate F31.62 [facility] [address] [id number] [address] [place] [phone] Jun, [facility] [address] [facility] [id number] [address] [place] [phone] Jun, Bipolar I disorder, most rec ent episode (or current) mixed, moderate F31.62 [facility] [address] [facility] [id number] [address] [place] [phone] May, Insomnia, unspecified type G 47.00 [facility] [address] [id number] [address] [place] [phone] May, Bipolar I disorder, most rec ent episode (or current) mixed, moderate F31.62 [facility] [address] [facility] [id number] [address] [place] [phone] May, [facility] [address] [facility] [id number] [address] [place] [phone] May, Bipolar I disorder, most rec ent episode (or current) mixed, moderate F31.62 [facility] [address] [facility] [id number] [address] [place] [id number] May, Diabetes E11.9 and Essential hypertension I10 [facility] [address] [facility] [id number] [address] [place] [phone] Apr, Chronic pain G89.29 [facility] [address] [facility] [id number] [address] [place] [phone] Apr, Bipolar I disorder, most rec ent episode (or current) mixed, moderate F31.62 [facility] [address] [facility] [id number] [address] [place] [id number] Apr, [facility] [address] [facility] [id number] [address] [place] [phone] Apr, [facility] [address] [facility] [id number] [address] [place] [phone] Mar, Chronic pain G89.29 ; Headac he, unspecified headache type R51 ; Neuropathy G62.9 ; Pain of right hip joint M25.551 and Essential hypertension I10 [facility] [address] [place] [id number] [address] [place] [phone] Mar, Chronic pain G89.29 [facility] [address] [place] [id number] [address] [place] [phone] Mar, Bipolar I disorder, most rec ent episode (or current) mixed, moderate F31.62 [facility] [place] [address] [place] [id number] [address] [place] [phone] Feb, Bipolar I disorder, most rec ent episode (or current) mixed, moderate F31.62 and Insomnia, unspecified type G47.00 [facility] [address] [place] [id number] [address] [place] [phone] Feb, Chronic pain G89.29 [facility] [place] [address] [place] [id number] [address] [place] [phone] Feb, Bipolar I disorder, most rec ent episode (or current) mixed, moderate F31.62 [place] [address] [phone] January, Bipolar I disorder, most rec ent episode (or current) mixed, moderate F31.62 [place] [address] [place] [id number] [address] [place] [id number] January, Chronic pain G89.29 [place] [address] [place] [id number] [address] [place] [phone] January, Chronic pain G89.29 and Esse ntial hypertension I10 [place] [address] [place] [id number] [place] [phone] January, Bipolar I disorder, most rec ent episode (or current) mixed, moderate F31.62 [place] [address] [place] [id number] [address] [place] [phone] Dec, [place] [address] [facility] [id number] [address] [place] [phone] Dec, [facility] [facility] [address] [facility] [id number] [address] [place] [address] Dec, [facility] [address] [facility] [id number] [address] [place] [address] Dec, [facility] [address] [facility] [id number] [address] [place] [address] Nov, Reactive airway disease J45. 909 [facility] [address] [facility] [id number] [address] [place] [phone] Nov, [facility] [address] [facility] [id number] [address] [place] [phone] Nov, [facility] [address] [facility] [id number] [address] [place] [phone] Nov, [facility] [address] [facility] [id number] [address] [place] [address] Nov, [facility] [address] [facility] [id number] [address] [place] [address] Nov, Onychomycosis B35.1 ; Hammer toe M20.40 ; [place] or callus L84 and DM neuro manif type II E11.49 [facility] [address] [facility] [id number] [address] [place] [address] Nov, Chronic pain G89.29 ; Leukoc ytosis D72.829 and Diabetes E11.9 [facility] [address] [facility] [id number] [address] [place] [phone] Nov, [facility] [address] [facility] [id number] [address] [place] [address] Oct, Bronchitis J40 [facility] [address] [facility] [id number] [address] [place] [phone] Oct, [facility] [address] [facility] [id number] [address] [place] [id number] Oct, [facility] [address] [place] [id number] [address] [place] [address] Oct, Mastoiditis, unspecified lat erality H70.90 and Type 2 diabetes mellitus with complication E11.8 [facility] [address] [place] [id number] [address] [place] [phone] Sep, [facility] [address] [place] [id number] [address] [place] [address] Sep, Dysuria R30.0 ; Cough R05 ; Benign prostatic hyperplasia with lower urinary tract symptoms, unspecified morphology N40.1 ; Hypokalemia E87.6 and Eustachian tube dysfunction, unspecified laterality H69.80 [place] [address] [place] [id number] [address] [place] [address] Sep, Moderate mixed bipolar I dis order F31.62 [place] [address] [place] [id number] [address] [place] [address] Sep, Hypokalemia E87.6 [place] [address] [place] [id number] [address] [place] [address] Sep, [place] [address] [address] Sep, Upper respiratory tract infe ction, unspecified type J06.9 [place] [address] [place] [id number] [address] [place] [phone] Aug, [place] [address] [place] [id number] [address] [place] [address] Aug, Dysuria R30.0 [place] [address] [place] [id number] [address] [place] [address] Aug, [facility] [address] [place] [id number] [address] [place] [phone] Jul, [place] [address] [place] [id number] [address] [place] [address] Jul, [facility] [address] [id number] [address] [place] [phone] Jul, [facility] [address] [id number] [address] [place] [phone] Jul, [facility] [address] [facility] [id number] [address] [place] [address] Jun, [facility] [address] [id number] [address] [place] [address] Jun, [facility] [address] [id number] [address] [place] [address] Jun, [facility] [address] [id number] [address] [place] [address] May, [facility] [address] [id number] [address] [place] [phone] May, Bipolar I disorder, most rec ent episode (or current) mixed, moderate 296.62 [facility] [address] [id number] [address] [place] [address] May, [facility] [address] [id number] [address] [place] [phone] May, Bipolar I disorder, most rec ent episode (or current) mixed, moderate 296.62 and Major depressive disorder, recurrent episode, severe, specified as with psychotic behavior 296.34 [facility] [address] [id number] [address] [place] [address] May, Bipolar I disorder, most rec ent episode (or current) mixed, moderate 296.62 [facility] [address] [id number] [address] [place] [address] May, [facility] [address] [facility] [id number] [address] [place] [address] Apr, [facility] [address] [facility] [id number] [address] [place] [phone] Apr, [facility] [address] [place] [id number] [address] [place] [id number] Apr, Unspecified disorder of kidn ey and ureter 593.9 and Diabetes mellitus type 2, uncontrolled 250.02 [facility] [address] [place] [id number] [address] [place] [phone] Apr, [facility] [address] [place] [id number] [address] [place] [address] Apr, [facility] [address] [place] [id number] [address] [place] [phone] Apr, [facility] [address] [address] Apr, [facility] [address] [place] [id number] [place] [address] Apr, Diabetes mellitus type II, u ncontrolled 250.02 [facility] [address] [place] [id number] [address] [place] [address] Apr, [facility] [address] [phone] Mar, [facility] [address] [id number] Mar, [facility] [address] [place] [id number] [address] [place] [address] Mar, [facility] [address] [place] [id number] [address] [place] [address] Mar, Major depressive disorder, r ecurrent episode, severe, specified as with psychotic behavior 296.34 and Bipolar I disorder, most recent episode (or current) mixed, moderate 296.62 [facility] [address] [place] [id number] [address] [place] [address] Mar, Diabetes 250.00 ; Anuria 788 .5 ; Nausea and vomiting 787.01 and Diarrhea 787.91 [facility] [address] [place] [id number] [address] [place] [address] Mar, Diabetes 250.00 [facility] [address] [place] [id number] [address] [place] [id number] Mar, [facility] [address] [place] [id number] [address] [place] [address] Mar, Diabetes 250.00 [facility] [address] [place] [id number] [address] [place] [phone] Mar, [facility] [address] [id number] Mar, [facility] [address] [place] [id number] [address] [place] [phone] Mar, [facility] [address] [place] [id number] [address] [place] [address] Mar, [facility] [id number] [place] [address] Mar, Bipolar I disorder, most rec ent episode (or current) mixed, moderate 296.62 and Major depressive disorder, recurrent episode, severe, specified as with psychotic behavior 296.34 [facility] [address] [place] [id number] [address] [place] [address] Mar, Magnesium deficiency 275.2 ; Hypokalemia 276.8 ; Nausea & vomiting 787.01 and Diabetes mellitus type 2, uncontrolled 250.02 [facility] [id number] [place] [address] Feb, [facility] [address] [place] [id number] [address] [place] [address] Feb, Bipolar I disorder, most rec ent episode (or current) mixed, moderate 296.62 [facility] [address] [place] [id number] [address] [place] [phone] Feb, Nausea and vomiting 787.01 ; Left elbow pain 719.42 ; Anuria 788.5 and Diabetes 250.00 [facility] [address] [place] [id number] [address] [place] [address] Feb, [facility] [address] [id number] [address] [place] [phone] Feb, Hypopotassemia 276.8 and Hyp okalemia 276.8 [facility] [address] [id number] [address] [place] [phone] Feb, Hypopotassemia 276.8 and Hyp okalemia 276.8 [facility] [address] [id number] [address] [place] [address] Feb, Seborrheic keratoses 702.19 [facility] [address] [id number] [address] [place] [id number] Feb, Hypopotassemia 276.8 and Low magnesium levels 275.2 [facility] [address] [facility] [id number] [address] [place] [phone] January, [facility] [address] [id number] [address] [place] [phone] January, [facility] [address] [facility] [id number] [address] [place] [id number] January, [facility] [address] [facility] [id number] [address] [place] [phone] January, Scalp lesion 709.9 [facility] [address] [facility] [id number] [address] [place] [phone] January, [facility] [address] [facility] [id number] [address] [place] [phone] Dec, Tear of medial cartilage or meniscus of knee, current 836.0 and Chondromalacia 733.92 [facility] [address] [id number] [address] [place] [address] Dec, [facility] [address] [id number] [address] [place] [phone] Dec, [facility] [address] [facility] [id number] [address] [place] [id number] 28 Dec, 2014 Squamous cell carcinoma, 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 [address] [id number] [address] [place] [address], [place] [address] Nov, [facility] [address] [id number] [address] [place] [address], [place] [address] Nov, [facility] [address] [id number] [address] [place] [address], [place] [address] Nov, [facility] [address] [id number] [address] [place] [address], [place] [address] Nov, [facility] [address] [id number] [address] [place] [address], [place] [address] Nov, [facility] [address] [id number] [address] [place] [address], [place] [address] Nov, [facility] [address] [id number] [address] [place] [address], [place] [address] Nov, [facility] [address] [id number] [address] [place] [address], [place] [address] Nov, [facility] [address] [id number] [address] [place] [address], [place] [address] Nov, [facility] [address] [id number] [address] [place] [address], [place] [address] Nov, [facility] [address] [id number] [address] [place] [address], [place] [address] Nov, [facility] [address] [id number] [address] [place] [address], [place] [address] Oct, [facility] [address] [id number] [address] [place] [address], [place] [address] Oct, 2014 [facility] [address] [id number] [address] [place] [address], [place] [address] Oct, [facility] [address] [id number] [address] [place] [address], [place] [address] Oct, 2014 [facility] [address] [id number] [address] [place] [address], [place] [address] Oct, 2014 [facility] [address] [id number] [address] [place] [address], [place] [address] Oct, 2014 [facility] [address] [id number] [address] [place] [address], [place] [address] Oct, [facility] [address] [id number] [address] [place] [address], [place] [address] Oct, [facility] [address] [id number] [address] [place] [address], [place] [address] Oct, [facility] [address] [id number] [address] [place] [address], [place] [address] Sep, [facility] [address] [id number] [address] [place] [address], [place] [address] Sep, [facility] [address] [id number] [address] [place] [address], [place] [address] Sep, [facility] [address] [id number] [address] [place] [address], [place] [address] Sep, [facility] [address] [id number] [address] [place] [address], [place] [address] Sep, [facility] [address] [id number] [address] [place] [address], [place] [address] Sep, [facility] [address] [id number] [address] [place] [address], [place] [address] Sep, [facility] [address] [id number] [address] [place] [address], [place] [address] Sep, [facility] [address] [id number] [address] [place] [address], [place] [address] Sep, [facility] [address] [id number] [address] [place] [address], [place] [address] Sep, [facility] [address] [id number] [address] [place] [address], [place] [address] Sep, [facility] [address] [id number] [address] [place] [address], [place] [address] Sep, [facility] [address] [id number] [address] [place] [address], [place] [address] Sep, [facility] [address] [id number] [address] [place] [address], [place] [address] Sep, [facility] [address] [id number] [address] [place] [address], [place] [address] Sep, [facility] [address] [id number] [address] [place] [address], [place] [address] Sep, [facility] [address] [id number] [address] [place] [address], [place] [address] Aug, [facility] [address] [id number] [address] [place] [address], [place] [address] 31 Aug, 2014 [facility] [address] [id number] [address] [place] [address], [place] [address] 31 Aug, 2014 [facility] [address] [id number] [address] [place] [address], [place] [address] 31 Aug, 2014 [facility] [address] [id number] [address] [place] [address], [place] [address] 31 Aug, 2014 [facility] [address] [id number] [address] [place] [address], [place] [address] 31 Aug, 2014 [facility] [address] [id number] [address] [place] [address], [place] [address] Aug, [facility] [address] [id number] [facility] [place] [address] Aug, [facility] [address] [id number] [address] [place] [address], [place] [address] Aug, [facility] [address] [id number] [facility] [place] [address] Aug, [facility] [address] [id number] [address] [place] [address], [place] [address] Aug, [facility] [id number] Aug, [facility] [address] [id number] [address] [place] [address], [place] [address] Aug, [facility] [address] [id number] [address] [place] [address], [place] [address] Aug, [facility] [address] [id number] [address] [place] [address], [place] [address] Aug, [facility] [address] [id number] [address] [place] [address], [place] [address] Aug, [facility] [address] [id number] [address] [place] [address], [place] [address] Aug, [facility] [address] [id number] [address] [place] [address], [place] [address] Aug, [facility] [address] [id number] [address] [place] [address], [place] [address] Aug, [facility] [address] [id number] [address] [place] [address], [place] [address] Aug, [facility] [address] [id number] [address] [place] [address], [place] [address] Aug, [facility] [address] [id number] [address] [place] [address], [place] [address] Aug, [facility] [address] [id number] [address] [place] [address], [place] [address] Aug, [facility] [address] [id number] [address] [place] [address], [place] [address] Aug, [facility] [address] [id number] [address] [place] [address], [place] [address] Aug, [facility] [address] [id number] [address] [place] [address], [place] [address] Aug, [facility] [address] [id number] [address] [place] [address], [place] [address] Aug, [facility] [address] [id number] [address] [place] [address], [place] [address] Aug, [facility] [address] [id number] [address] [place] [address], [place] [address] Aug, [facility] [address] [id number] [address] [place] [address], [place] [address] Aug, [facility] [address] [id number] [address] [place] [address], [place] [address] Jul, [facility] [address] [id number] [address] [place] [address], [place] [address] Jul, [facility] [address] [id number] [address] [place] [address], [place] [address] Jul, [facility] [address] [id number] [address] [place] [address], [place] [address] Jul, [facility] [address] [id number] [address] [place] [address], [place] [address] Jul, [facility] [address] [id number] [address] [place] [address], [place] [address] Jul, [facility] [address] [id number] [address] [place] [address], [place] [address] Jul, [facility] [address] [id number] [address] [place] [address], [place] [address] Jul, [facility] [address] [id number] [address] [place] [address], [place] [address] Jul, [facility] [address] [id number] [address] [place] [address], [place] [address] Jul, [facility] [address] [id number] [address] [place] [address], [place] [address] Jun, [facility] [address] [id number] [address] [place] [address], [place] [address] Jun, [facility] [address] [id number] [address] [place] [address], [place] [address] Jun, [facility] [address] [id number] [address] [place] [address], [place] [address] Jun, [facility] [address] [id number] [address] [place] [address], [place] [address] Jun, [facility] [address] [id number] [address] [place] [address], [place] [address] Jun, [facility] [address] [id number] [address] [place] [address], [place] [address] Jun, [facility] [address] [id number] [address] [place] [address], [place] [address] Jun, [facility] [address] [id number] [address] [place] [address], [place] [address] Jun, [facility] [address] [id number] [address] [place] [address], [place] [address] Jun, [facility] [address] [id number] [address] [place] [address], [place] [address] 29 May, 2014 [facility] [address] [id number] [address] [place] [address], [place] [address] 29 May, 2014 [facility] [address] [id number] [address] [place] [address], [place] [address] May, [facility] [address] [id number] [address] [place] [address], [place] [address] May, [facility] [address] [id number] [address] [place] [address], [place] [address] 17 May, 2013 [facility] [address] [id number] [address] [place] [address], [place] [address] 17 May, 2013 [facility] [address] [id number] [address] [place] [address], [place] [address] 15 May, 2013 [facility] [address] [id number] [address] [place] [address], [place] [address] 15 May, 2013 [facility] [address] [id number] [address] [place] [address], [place] [address] 15 May, 2013 [facility] [address] [id number] [address] [place] [address], [place] [address] 15 May, 2013 [facility] [address] [id number] [address] [place] [address], [place] [address] 10 May, 2013 [facility] [address] [id number] [address] [place] [address], [place] [address] 10 May, 2013 [facility] [address] [id number] [address] [place] [address], [place] [address] 09 May, 2013 [facility] [address] [id number] [address] [place] [address], [place] [address] 09 May, 2013 [facility] [address] [id number] [address] [place] [address], [place] [address] 04 May, 2013 [facility] [address] [id number] [address] [place] [address], [place] [address] May, 2013 [facility] [address] [id number] [address] [place] [address], [place] [address] Apr, [facility] [address] [id number] [address] [place] [address], [place] [address] Apr, [facility] [address] [id number] [address] [place] [address], [place] [address] Apr, [facility] [address] [id number] [address] [place] [address], [place] [address] Apr, [facility] [address] [id number] [facility] [place] [address] Apr, [facility] [address] [id number] [address] [place] [address], [place] [address] Apr, [facility] [address] [id number] [address] [place] [address], [place] [address] Apr, [facility] [address] [id number] [address] [place] [address], [place] [address] Apr, [facility] [address] [id number] [address] [place] [address], [place] [address] Apr, [facility] [address] [id number] [address] [place] [address], [place] [address] Apr, [facility] [address] [id number] [address] [place] [address], [place] [address] Apr, [facility] [address] [id number] [address] [place] [address], [place] [address] Apr, [facility] [address] [id number] [address] [place] [address], [place] [address] Apr, [facility] [address] [id number] [address] [place] [address], [place] [address] Apr, [facility] [address] [id number] [address] [place] [address], [place] [address] Apr, [facility] [address] [id number] [address] [place] [address], [place] [address] Mar, [facility] [address] [id number] [address] [place] [address], [place] [address] Mar, [facility] [address] [id number] [address] [place] [address], [place] [address] Mar, [facility] [address] [id number] [address] [place] [address], [place] [address] Mar, [facility] [address] [id number] [facility] [place] [address] Mar, 2013 [facility] [address] [id number] [address] [place] [address], [place] [address] Mar, 2013 [facility] [address] [id number] [address] [place] [address], [place] [address] Mar, 2013 [facility] [address] [id number] [address] [place] [address], [place] [address] Mar, 2013 [facility] [address] [id number] [address] [place] [address], [place] [address] Mar, 2013 [facility] [address] [id number] [address] [place] [address], [place] [address] Mar, 2013 [facility] [address] [id number] [address] [place] [address], [place] [address] Mar, 2013 [facility] [address] [id number] [address] [place] [address], [place] [address] Mar, 2013 [facility] [address] [id number] [address] [place] [address], [place] [address] Mar, 2013 [facility] [address] [id number] [address] [place] [address], [place] [address] Mar, 2013 [facility] [address] [id number] [address] [place] [address], [place] [address] Mar, 2013 [facility] [address] [id number] [address] [place] [address], [place] [address] Mar, 2013 [facility] [address] [id number] [address] [place] [address], [place] [address] Mar, [facility] [address] [id number] [address] [place] [address], [place] [address] Mar, [facility] [address] [id number] [address] [place] [address], [place] [address] Feb, [facility] [address] [id number] [address] [place] [address], [place] [address] Feb, [facility] [address] [id number] [facility] [place] [address] Feb, [facility] [address] [id number] [facility] [place] [address] Feb, [facility] [address] [id number] [facility] [place] [address] Feb, [facility] [address] [id number] [facility] [place] [address] Feb, [facility] [address] [id number] [facility] [place] [address] Feb, [facility] [address] [id number] [address] [place] [address], [place] [address] Feb, [facility] [address] [id number] [address] [place] [address], [place] [address] Feb, [facility] [address] [id number] [address] [place] [address], [place] [address] Feb, [facility] [address] [id number] [address] [place] [address], [place] [address] Feb, [facility] [address] [id number] [address] [place] [address], [place] [address] Feb, [facility] [address] [id number] [address] [place] [address], [place] [address] Feb, [facility] [address] [id number] [address] [place] [address], [place] [address] Feb, [facility] [address] [id number] [address] [place] [address], [place] [address] January, [facility] [address] [id number] [address] [place] [address], [place] [address] January, [facility] [address] [id number] [address] [place] [address], [place] [address] January, [facility] [address] [id number] [address] [place] [address], [place] [address] January, [facility] [address] [id number] [facility] [place] [address] January, [facility] [address] [id number] [address] [place] [address], [place] [address] January, [facility] [address] [id number] [address] [place] [address], [place] [address] January, [facility] [address] [id number] [address] [place] [address], [place] [address] January, [facility] [address] [id number] [address] [place] [address], [place] [address] January, [facility] [address] [id number] [address] [place] [address], [place] [address] January, [facility] [address] [id number] [address] [place] [address], [place] [address] January, [facility] [address] [id number] [address] [place] [address], [place] [address] January, [facility] [address] [id number] [address] [place] [address], [place] [address] January, [facility] [address] [id number] [address] [place] [address], [place] [address] January, [facility] [address] [id number] [address] [place] [address], [place] [address] Dec, [facility] [address] [id number] [address] [place] [address], [place] [address] Dec, [facility] [address] [id number] [address] [place] [address], [place] [address] Dec, [facility] [address] [id number] [address] [place] [address], [place] [address] Dec, [facility] [address] [id number] [address] [place] [address], [place] [address] Dec, [facility] [address] [id number] [facility] [place] [address] Dec, [facility] [address] [id number] [facility] [place] [address] Dec, [facility] [address] [id number] [facility] [place] [address] Dec, [facility] [address] [id number] [address] [place] [address], [place] [address] Dec, [facility] [address] [id number] [facility] [place] [address] Dec, [facility] [address] [id number] [address] [place] [address], [place] [address] Nov, [facility] [address] [id number] [address] [place] [address], [place] [address] Nov, [facility] [address] [id number] [address] [place] [address], [place] [address] Nov, [facility] [address] [id number] [address] [place] [address], [place] [address] Nov, [facility] [address] [id number] [address] [place] [address], [place] [address] Nov, [facility] [address] [id number] [address] [place] [address], [place] [address] Nov, [facility] [address] [id number] [address] [place] [address], [place] [address] Nov, [facility] [address] [id number] [address] [place] [address], [place] [address] 05 Nov, 2013 [facility] [address] [id number] [address] [place] [address], [place] [address] Nov, [facility] [address] [id number] [address] [place] [address], [place] [address] Nov, [facility] [address] [id number] [address] [place] [address], [place] [address] Oct, [facility] [address] [id number] [address] [place] [address], [place] [address] Oct, [facility] [address] [id number] [address] [place] [address], [place] [address] Oct, [facility] [address] [id number] [address] [place] [address], [place] [address] Oct, [facility] [address] [id number] [address] [place] [address], [place] [address] Oct, [facility] [address] [id number] [address] [place] [address], [place] [address] Oct, [facility] [address] [id number] [address] [place] [address], [place] [address] Oct, [facility] [address] [id number] [address] [place] [address], [place] [address] Oct, [facility] [address] [id number] [address] [place] [address], [place] [address] Oct, [facility] [address] [id number] [address] [place] [address], [place] [address] Oct, [facility] [address] [id number] [address] [place] [address], [place] [address] Oct, [facility] [address] [id number] [address] [place] [address], [place] [address] Oct, [facility] [address] [id number] [address] [place] [address], [place] [address] Oct, [facility] [address] [id number] [address] [place] [address], [place] [address] Oct, [facility] [address] [id number] [address] [place] [address], [place] [address] Sep, [facility] [address] [id number] [address] [place] [address], [place] [address] Sep, [facility] [address] [id number] [address] [place] [address], [place] [address] 15 Sep, 2013 [facility] [address] [id number] [address] [place] [address], [place] [address] 15 Sep, 2013 [facility] [address] [id number] [address] [place] [address], [place] [address] Sep, [facility] [address] [id number] [address] [place] [address], [place] [address] Sep, [facility] [address] [id number] [address] [place] [address], [place] [address] Sep, [facility] [address] [id number] [address] [place] [address], [place] [address] Sep, [facility] [address] [id number] [address] [place] [address], [place] [address] Sep, [facility] [address] [id number] [address] [place] [address], [place] [address] Sep, [facility] [address] [id number] [address] [place] [address], [place] [address] Aug, [facility] [address] [id number] [address] [place] [address], [place] [address] Aug, [facility] [address] [id number] [address] [place] [address], [place] [address] Jul, [facility] [address] [id number] [address] [place] [address] Jul, [facility] [address] [id number] [address] [place] [address], [place] [address] Jul, [facility] [address] [id number] [address] [place] [address], [place] [address] Jul, [facility] [address] [id number] [address] [place] [address], [place] [address] Jul, [facility] [address] [id number] [address] [place] [address] 13 Jul, 2013 [facility] [address] [id number] [address] [place] [address], [place] [address] Jul, [facility] [address] [id number] [address] [place] [address] Jul, [facility] [address] [id number] [address] [place] [address], [place] [address] Jul, [facility] [address] [id number] [address] [place] [address], [place] [address] 08 Jul, 2013 [facility] [address] [id number] [address] [place] [address], [place] [address] Jul, [facility] [address] [id number] [address] [place] [address], [place] [address] Jul, [facility] [address] [id number] [address] [place] [address], [place] [address] Jul, [facility] [address] [id number] [address] [place] [address], [place] [address] Jul, [facility] [address] [id number] [address] [place] [address] Jul, [facility] [address] [id number] [address] [place] [address], [place] [address] Jul, [facility] [address] [id number] [address] [place] [id number] Jul, [facility] [address] [id number] [address] [place] [address] Jul, [facility] [address] [id number] [address] [place] [phone] Jul, [facility] [address] [id number] [address] [place] [address], [place] [address] Jun, [facility] [address] [id number] [address] [place] [address] Jun, [facility] [address] [id number] [address] [place] [address], [place] [address] 16 Jun, 2012 [facility] [address] [id number] [address] [place] [address], [place] [address] 16 Jun, 2012 [facility] [address] [id number] [address] [place] [address], [place] [address] 16 Jun, 2012 [facility] [address] [id number] [address] [place] [address], [place] [address] 16 Jun, 2012 [facility] [address] [id number] [address] [place] [address], [place] [address] 10 Jun, 2012 [facility] [address] [id number] [address] [place] [address], [place] [address] 10 Jun, 2012 [facility] [address] [id number] [address] [place] [address], [place] [address] 09 Jun, 2012 [facility] [address] [id number] [address] [place] [address], [place] [address] 09 Jun, 2012 [facility] [address] [id number] [address] [place] [address], [place] [address] 01 Jun, 2012 [facility] [address] [id number] [address] [place] [address], [place] [address] 26 May, 2012 [facility] [address] [id number] [address] [place] [address], [place] [address] 25 Sep, 2012 [facility] [address] [id number] [address] [place] [address], [place] [address] 19 Sep, 2012 [facility] [address] [id number] [address] [place] [address], [place] [address] 17 Sep, 2012 [facility] [address] [id number] [address] [place] [address], [place] [address] 11 Sep, 2012 [facility] [address] [id number] [address] [place] [address], [place] [address] 10 Sep, 2012 [facility] [address] [id number] [address] [place] [address], [place] [address] May, [facility] [address] [id number] [address] [place] [address], [place] [address] May, [facility] [address] [id number] [address] [place] [address], [place] [address] Apr, [facility] [address] [id number] [address] [place] [address], [place] [address] Apr, [facility] [address] [id number] [address] [place] [address], [place] [address] Apr, [facility] [address] [id number] [address] [place] [address], [place] [address] Apr, [facility] [address] [id number] [address] [place] [address], [place] [address] Apr, [facility] [address] [id number] [address] [place] [address], [place] [address] Mar, [facility] [address] [id number] [address] [place] [address], [place] [address] Mar, [facility] [address] [id number] [address] [place] [address], [place] [address] Mar, [facility] [address] [id number] [address] [place] [address], [place] [address] Mar, [facility] [address] [id number] [address] [place] [address], [place] [address] Mar, [facility] [address] [id number] [address] [place] [address], [place] [address] Mar, [facility] [address] [id number] [address] [place] [address], [place] [address] Mar, [facility] [address] [id number] [address] [place] [address], [place] [address] Mar, [facility] [address] [id number] [address] [place] [address], [place] [address] Feb, [facility] [address] [id number] [address] [place] [address], [place] [address] 10 Feb, 2013 [facility] [address] [id number] [address] [place] [address], [place] [address] January, [facility] [address] [id number] [address] [place] [address], [place] [address] January, [facility] [address] [id number] [address] [place] [address], [place] [address] Dec, [facility] [address] [id number] [address] [place] [address], [place] [address] Dec, [facility] [address] [id number] [address] [place] [address], [place] [address] Nov, [facility] [address] [id number] [address] [place] [address], [place] [address] Nov, [facility] [address] [id number] [address] [place] [address], [place] [address] Nov, [facility] [address] [id number] [address] [place] [address], [place] [address] Nov, [facility] [address] [id number] [address] [place] [address], [place] [address] Oct, [facility] [address] [id number] [address] [place] [address], [place] [address] Oct, [facility] [address] [id number] [address] [place] [address], [place] [address] Oct, [facility] [address] [id number] [address] [place] [address], [place] [address] 26 Oct, 2012 [facility] [address] [id number] [address] [place] [address], [place] [address] 16 Oct, 2012 [facility] [address] [id number] [address] [place] [address], [place] [address] 14 Oct, 2012 [facility] [address] [id number] [address] [place] [address], [place] [address] 08 Oct, 2012 [facility] [address] [id number] [address] [place] [address], [place] [address] 07 Oct, 2012 [facility] [address] [id number] [address] [place] [address], [place] [address] 03 Oct, 2012 [facility] [address] [id number] [address] [place] [address], [place] [address] Sep, [facility] [address] [id number] [address] [place] [address], [place] [address] Sep, [facility] [address] [id number] [address] [place] [address], [place] [address] Sep, [facility] [address] [id number] [address] [place] [address], [place] [address] Sep, [facility] [address] [id number] [address] [place] [address], [place] [address] Sep, [facility] [address] [id number] [address] [place] [address], [place] [address] Sep, [facility] [address] [id number] [address] [place] [address], [place] [address] Sep, [facility] [address] [id number] [address] [place] [address], [place] [address] Sep, [facility] [address] [id number] [address] [place] [address], [place] [address] Aug, [facility] [address] [id number] [address] [place] [address], [place] [address] Aug, [facility] [address] [id number] [address] [place] [address], [place] [address] Aug, [facility] [address] [id number] [address] [place] [address], [place] [address] Aug, [facility] [address] [id number] [address] [place] [address], [place] [address] Aug, [facility] [address] [id number] [address] [place] [address], [place] [address] Aug, [facility] [address] [id number] [address] [place] [address], [place] [address] Aug, [facility] [address] [id number] [address] [place] [address], [place] [address] Aug, [facility] [address] [id number] [address] [place] [address], [place] [address] Jul, [facility] [address] [id number] [address] [place] [address], [place] [address] Jul, [facility] [address] [id number] [address] [place] [address], [place] [address] Jul, [facility] [address] [id number] [address] [place] [address], [place] [address] Jul, [facility] [address] [id number] [address] [place] [address], [place] [address] Jul, [facility] [address] [id number] [address] [place] [address], [place] [address] Jul, [facility] [address] [id number] [address] [place] [address], [place] [address] Jun, [facility] [address] [id number] [address] [place] [address], [place] [address] Jun, [facility] [address] [id number] [address] [place] [address], [place] [address] Jun, [facility] [address] [id number] [address] [place] [id number] Jun, [facility] [address] [id number] [address] [place] [address], [place] [address] Jun, [facility] [address] [id number] [address] [place] [address], [place] [address] Jun, [facility] [address] [id number] [address] [place] [address], [place] [address] Jun, [facility] [address] [id number] [address] [place] [address], [place] [address] Jun, [facility] [address] [id number] [address] [place] [address], [place] [address] Jun, [facility] [address] [id number] [address] [place] [address], [place] [address] May, [facility] [address] [id number] [address] [place] [address], [place] [address] May, [facility] [address] [id number] [address] [place] [address], [place] [address] May, [facility] [address] [id number] [address] [place] [address], [place] [address] Apr, [facility] [address] [id number] [address] [place] [address], [place] [address] Apr, [facility] [facility] [address] [id number] [address] [place] [address], [place] [address] Apr, [facility] [address] [id number] [address] [place] [address], [place] [address] Apr, [facility] [address] [id number] [address] [place] [address], [place] [address] Apr, [facility] [address] [id number] [address] [place] [address], [place] [address] Apr, [facility] [address] [id number] [address] [place] [address], [place] [address] Mar, [facility] [address] [id number] [address] [place] [address], [place] [address] Mar, [facility] [address] [id number] [address] [place] [address], [place] [address] Mar, [facility] [address] [id number] [address] [place] [address], [place] [address] Mar, [facility] [address] [id number] [address] [place] [address], [place] [address] Feb, [facility] [address] [id number] [address] [place] [address], [place] [address] Feb, [facility] [address] [id number] [address] [place] [address], [place] [address] Feb, [facility] [address] [id number] [address] [place] [address], [place] [address] Feb, [facility] [address] [id number] [address] [place] [address], [place] [address] Feb, [facility] [address] [id number] [address] [place] [address], [place] [address] January, [facility] [address] [id number] [address] [place] [address], [place] [address] January, [facility] [address] [id number] [address] [place] [address], [place] [address] January, [facility] [address] [id number] [address] [place] [address], [place] [address] January, [facility] [address] [id number] [address] [place] [address], [place] [address] January, [facility] [address] [id number] [address] [place] [address], [place] [address] January, [facility] [address] [id number] [address] [place] [address], [place] [address] Dec, [facility] [address] [id number] [address] [place] [address], [place] [address] Dec, [facility] [address] [id number] [address] [place] [address], [place] [address] Dec, [facility] [address] [id number] [address] [place] [address], [place] [address] Dec, [facility] [address] [id number] [address] [place] [address], [place] [address] Dec, [facility] [address] [id number] [address] [place] [address], [place] [address] 27 Nov, 2011 [facility] [address] [id number] [address] [place] [address], [place] [address] 14 Nov, 2011 [facility] [address] [id number] [address] [place] [address], [place] [address] 12 Nov, 2011 [facility] [address] [id number] [address] [place] [address], [place] [address] 07 Nov, 2011 [facility] [address] [id number] [address] [place] [address], [place] [address] 29 Oct, 2011 [facility] [address] [id number] [address] [place] [address], [place] [address] 28 Oct, 2011 [facility] [address] [id number] [address] [place] [address], [place] [address] 24 Oct, 2011 [facility] [address] [id number] [address] [place] [address], [place] [address] 13 Oct, 2011 [facility] [address] [id number] [address] [place] [address], [place] [address] 08 Oct, 2011 [facility] [address] [id number] [address] [place] [address], [place] [address] Sep, [facility] [address] [id number] [address] [place] [address], [place] [address] Sep, [facility] [address] [id number] [address] [place] [address], [place] [address] Sep, [facility] [address] [id number] [address] [place] [address], [place] [address] Sep, [facility] [address] [id number] [address] [place] [address], [place] [address] Sep, [facility] [address] [id number] [address] [place] [address], [place] [address] Sep, [facility] [address] [id number] [address] [place] [address], [place] [address] Aug, [facility] [address] [id number] [address] [place] [address], [place] [address] Aug, [facility] [address] [id number] [address] [place] [address], [place] [address] Aug, [facility] [address] [id number] [address] [place] [address], [place] [address] Jul, [facility] [address] [id number] [address] [place] [address], [place] [address] Jul, [facility] [address] [id number] [address] [place] [address], [place] [address] Jul, [facility] [address] [id number] [address] [place] [address], [place] [address] Jul, [facility] [address] [id number] [address] [place] [address], [place] [address] Jun, [facility] [address] [id number] [address] [place] [address], [place] [address] Jun, [facility] [address] [id number] [address] [place] [address], [place] [address] Jun, [facility] [address] [id number] [address] [place] [address], [place] [address] Jun, [facility] [address] [id number] [address] [place] [address] Jun, [facility] [address] [id number] [address] [place] [address] Jun, [facility] [address] [id number] [address] [place] [address], [place] [address] Mar, [facility] [address] [id number] [address] [place] [address], [place] [address] Dec, [facility] [address] [id number] [address] [place] [address], [place] [address] Dec, [facility] [address] [id number] [address] [place] [address], [place] [address] 18 Nov, 2010 [facility] [address] [id number] [address] [place] [address], [place] [address] 16 Nov, 2010 [facility] [address] [id number] [address] [place] [address], [place] [address] 10 Sep, 2010 [facility] [address] [id number] [address] [place] [address], [place] [address] 31 Aug, 2010 [facility] [address] [id number] [address] [place] [address], [place] [address] 29 Aug, 2010 [facility] [address] [id number] [address] [place] [address], [place] [address] 29 Aug, 2010 [facility] [address] [id number] [address] [place] [address], [place] [address] 29 Aug, 2010 [facility] [address] [id number] [address] [place] [address], [place] [address] 27 Aug, 2010 [facility] [address] [id number] [address] [place] [address], [place] [address] 14 Aug, 2010 [facility] [address] [id number] [address] [place] [address], [place] [address] 08 Aug, 2010 [facility] [address] [id number] [address] [place] [address], [place] [address] 08 Aug, 2010 [facility] [address] [id number] [address] [place] [address], [place] [address] 07 Aug, 2010 [facility] [address] [id number] [address] [place] [address], [place] [address] 06 Aug, 2010 [facility] [address] [id number] [address] [place] [address], [place] [address] 06 Aug, 2010 [facility] [address] [id number] [address] [place] [address], [place] [address] Aug, [facility] [address] [id number] [address] [place] [address], [place] [address] Jul, [facility] [address] [id number] [address] [place] [address], [place] [address] Jul, [facility] [address] [id number] [address] [place] [address], [place] [address] Jul, [facility] [address] [id number] [address] [place] [address], [place] [address] Jul, [facility] [address] [id number] [address] [place] [address], [place] [address] Jul, [facility] [address] [id number] [address] [place] [address], [place] [address] Jul, [facility] [address] [id number] [address] [place] [address], [place] [address] 24 Jun, 2010 [facility] [address] [id number] [address] [place] [address], [place] [address] Jun, [facility] [address] [id number] [address] [place] [address], [place] [address] Jun, [facility] [address] [id number] [address] [place] [address], [place] [address] Jun, [facility] [address] [id number] [address] [place] [address], [place] [address] Apr, [facility] [address] [id number] [address] [place] [address], [place] [address] Mar, [facility] [address] [id number] [address] [place] [phone] Feb, [facility] [address] [id number] [address] [place] [address], [place] [address] January, [facility] [address] [id number] [address] [place] [address], [place] [address] 15 Dec, 2009 [facility] [address] [id number] [address] [place] [address] Nov, [facility] [address] [id number] [address] [place] [address] Aug, [facility] [address] [id number] [address] [place] [phone] Aug, [facility] [address] [id number] [address] [place] [phone] Aug, [facility] [address] [id number] [address] [place] [phone] Jul, [facility] [address] [id number] [address] [place] [phone] Jul, [facility] [address] [id number] [address] [place] [address], [place] [address] Jul, [facility] [address] [id number] [address] [place] [phone] Jun, [facility] [address] [id number] [address] [place] [id number] Jun, [facility] [address] [id number] [address] [place] [phone] Jun, [facility] [address] [id number] [address] [place] [phone] Jun, [facility] [address] [id number] [address] [place] [phone] Jun, [facility] [address] [id number] [address] [place] [phone] Jun, [facility] [address] [id number] [address] [place] [phone] Apr, [facility] [address] [id number] [address] [place] [phone] Apr, [facility] [address] [id number] [address] [place] [phone] Feb, [facility] [address] [id number] [address] [place] [phone] January, [facility] [address] [id number] [address] [place] [address] Dec, IMMUNIZATIONS No Known Immunizations SOCIAL HISTORY [...] 2009 Surgical History colonoscopy 2009 ([facility]), 2013 ([facility] ) Surgical History heart cath: CAD w/ [...] 09/16/[address] [facility] health ea rly 1999's Hospitalization History hyperkalemia 10/2017 Hospitalization History fluid in lung Hospitalization History stroke, 02/2020
--- OUTSIDE RECORDS SUMMARY | 2020-04-11 11:08 | XMS REPORT ---
Author Author Michele WASHBURN Organization [facility] Address [address] [place] [address] Care Team Providers Care Integration Consultant Name Role Phone NOEMI WASHBURN Unavailable PROBLEMS Type Condition ICD9-CM Code [id number] Code Onset Dates Condition S tatus SNOMED Code Problem Bipolar I disorder, most recent episode (or curr ent) mixed, moderate F31.62 Active 18092463 Problem Anxiety F41.9 Active 88433326 Problem Insomnia, unspecified type G47.00 Act sharon 204899207 Problem Essential hypertension I10 Active 28913489 Problem Morbid obesity E66.01 Active 52206 6002 Problem Polyneuropathy associated with underlying disease G63 Active 037630703 Problem Diabetic polyneuropathy associated with type 2 d iabetes mellitus E11.42 Active 72981953 Problem Chronic diastolic (congestive) heart failure I50.3 2 Active 513179048 Problem Diabetes E11.9 Active 76562049 Problem Bipolar disorder F31.9 Active 137 50342 Problem Chronic pain G89.29 Active 8715237 1 Problem Reactive airway disease J45.909 Active 630125499754 Problem Leukocytosis D72.829 Active 7735990 06 Problem Falling R29.6 Active 888860459 Problem 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 Active 906070823 Problem Pure hypercholesterolemia E78.00 Acti ve 418541089 Problem Dysuria R30.0 Active 77038112 Problem Bipolar disorder, in partial remission, most rec ent episode depressed F31.75 Active 99977879 Problem Hypokalemia E87.6 Active 80775442 Problem Other iron deficiency anemia D50.8 A ctive 39896985 Problem Eustachian tube dysfunction, unspecified laterality H69.80 Active 87671467 Problem Primary osteoarthritis of right knee M17.11 Active 254536037473526 Problem Cough R05 Active 60812805 Problem Skin cancer C44.90 Active 73199731 7 Problem DM neuro manif type II E11.49 Active 43553542 Problem Mild cognitive impairment G31.84 Acti ve 191687270 Problem Benign prostatic hyperplasia with lower urinary tract symptoms, unspecified morphology N40.1 Active 12763 6007 Problem Psychophysiological insomnia F51.04 A ctive 071644956 Problem Type 2 diabetes mellitus with diabetic neuropathy, uns pecified E11.40 Active 05097032 Problem salvage determiner (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 Z79.4 Active 204507597 Problem PVD (peripheral vascular disease) I73.9 Active 186733171 Problem Retinal edema H35.81 Active 973154 6 Problem Chronic lymphocytic leukemia C91.10 A ctive 54442620 Problem Agitation R45.1 Active 089592495 Problem Bilateral primary osteoarthritis of knee M17.0 Active 634996879 Problem Eye exam abnormal R93.8 Active 16 4293370 Problem Anemia of chronic illness D63.8 Acti ve 046444617 Problem Lymphocytosis D72.820 Active 360175 09 Problem Mood disorder F39 Active 504125 05 Problem Bipolar I disorder, most recent episode depressed, moderat e F31.32 Active 147693712 Problem Pressure ulcer of other site, stage 3 L89.893 Active 409848443 Problem Gastroesophageal reflux disease without esophagitis K21.9 Active 140679712 Problem Other secondary acute gout, 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 0 Active 315908242 ALLERGIES No Information ENCOUNTERS Encounter Location Date Diagnosis [facility] [address] [facility] [id number] [address] [place] [phone] Mar, [facility] [address] [facility] [id number] [address] [place] [phone] Mar, [facility] [address] [facility] [id number] [address] [place] [phone] Mar, [facility] [address] [facility] [id number] [address] [place] [phone] Mar, [facility] [address] [facility] [id number] [address] [place] [phone] Mar, [facility] [address] [facility] [id number] [address] [place] [phone] Feb, [facility] [address] [facility] [id number] [address] [place] [phone] 25 Feb, 2020 Bipolar I disorder, most rec ent episode depressed, moderate F31.32 ; Anxiety F41.9 and Mild cognitive impairment G31.84 [place] [address] [facility] [id number] [address] [place] [phone] 24 Feb, 2020 [place] [address] [facility] [id number] [address] [place] [phone] 24 Feb, 2020 Gastroesophageal reflux dise ase without esophagitis K21.9 [place] [address] [facility] [id number] [address] [place] [phone] 23 Feb, 2020 [place] [address] [facility] [id number] [address] [place] [phone] 18 Feb, 2020 Bipolar I disorder, most rec ent episode depressed, moderate F31.32 ; Anxiety F41.9 and Mild cognitive impairment G31.84 [place] [address] [facility] [id number] [address] [place] [phone] 17 Feb, 2020 Chronic pain G89.29 [place] [address] [facility] [id number] [address] [place] [phone] 17 Feb, 2020 Agitation R45.1 [place] [address] [facility] [id number] [address] [place] [phone] 17 Feb, 2020 PVD (peripheral vascular dis ease) I73.9 ; Status post CVA Z86.73 ; Status post carotid endarterectomy Z98.890 ; Vertigo R42 ; Mild cognitive impairment G31.84 ; Type 2 diabetes mellitus with diabetic neuropathy, unspecified E11.40 and Essential hypertension I10 [place] [address] [facility] [id number] [address] [place] [phone] Feb, [place] [address] [facility] [id number] [address] [place] [phone] Feb, [place] [address] [place] [id number] [address] [place] [phone] January, [place] [address] [place] [id number] [address] [place] [phone] January, Chronic pain G89.29 [facility] [address] [facility] [id number] [address] [place] [phone] Dec, [facility] [address] [facility] [id number] [address] [place] [phone] Dec, Chronic pain G89.29 [facility] [address] [facility] [id number] [address] [place] [phone] Dec, [facility] [address] [facility] [id number] [address] [place] [phone] Dec, [facility] [address] [facility] [id number] [place] [phone] Dec, Gastroesophageal reflux dise ase without esophagitis K21.9 and Pure hypercholesterolemia E78.00 [place] [address] [facility] [id number] [address] [place] [phone] Dec, Mood disorder F39 [place] [address] [facility] [id number] [place] [phone] Nov, Other secondary acute gout, 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 [place] [address] [facility] [id number] [address] [place] [phone] Nov, Gastroesophageal reflux dise ase without esophagitis K21.9 [place] [address] [facility] [id number] [address] [place] [phone] Nov, Chronic pain G89.29 [facility] [address] [facility] [id number] [address] [place] [phone] Nov, Bipolar I disorder, most rec ent episode depressed, moderate F31.32 ; Anxiety F41.9 and Mild cognitive impairment G31.84 [place] [address] [facility] [id number] [address] [place] [phone] Nov, [place] [address] [facility] [id number] [address] [place] [phone] Nov, Syncope, unspecified syncope type R55 [facility] [address] [id number] [address] [place] [phone] Nov, Mood disorder F39 [facility] [address] [id number] [address] [place] [phone] Oct, Chronic pain G89.29 [facility] [address] [id number] [address] [place] [phone] Oct, [facility] [address] [id number] [address] [place] [phone] Oct, Mood disorder F39 [facility] [address] [id number] [address] [place] [phone] Oct, [facility] [address] [id number] [address] [place] [phone] Oct, Bipolar disorder, in partial remission, most recent episode depressed F31.75 and Mild cognitive impairment G31.84 [facility] [address] [id number] [address] [place] [phone] Oct, Mood disorder F39 [facility] [address] [id number] [address] [place] [phone] Sep, [facility] [address] [id number] [address] [place] [phone] Sep, Mood disorder F39 [facility] [address] [id number] [address] [place] [phone] Sep, Bipolar disorder, in partial remission, most recent episode depressed F31.75 and Mild cognitive impairment G31.84 [facility] [address] [id number] [address] [place] [phone] Sep, Mood disorder F39 [facility] [address] [id number] [address] [place] [phone] Sep, [facility] [address] [id number] [address] [place] [phone] Sep, Mood disorder F39 [facility] [address] [id number] [address] [place] [address], [place] [address] Sep, [facility] [address] [id number] [address] [place] [address], [place] [address] Aug, Mood disorder F39 [facility] [address] [id number] [address] [place] [address], [place] [address] Aug, [facility] [address] [id number] [address] [place] [address], [place] [address] Aug, [facility] [address] [id number] [address] [place] [address], [place] [address] Aug, [facility] [address] [id number] [address] [place] [phone] Aug, [facility] [address] [id number] [address] [place] [address], [place] [address] Aug, [facility] [address] [id number] [address] [place] [phone] Aug, [facility] [address] [id number] [address] [place] [phone] Aug, [facility] [address] [id number] [address] [place] [phone] Aug, Essential hypertension I10 [facility] [address] [id number] [address] [place] [address] Aug, Bipolar disorder, in partial remission, most recent episode depressed F31.75 and Mild cognitive impairment G31.84 [facility] [address] [id number] [address] [place] [phone] Aug, Mood disorder F39 [facility] [address] [id number] [address] [place] [phone] Aug, [facility] [address] [id number] [address] [place] [phone] Aug, Bipolar disorder, in partial remission, most recent episode depressed F31.75 and Mild cognitive impairment G31.84 [facility] [address] [id number] [address] [place] [address] Jul, Bipolar disorder, in partial remission, most recent episode depressed F31.75 and Mild cognitive impairment G31.84 [facility] [address] [id number] [address] [place] [phone] Jul, Psychophysiological insomnia F51.04 [facility] [address] [id number] [address] [place] [phone] Jul, [facility] [address] [id number] [address] [place] [phone] Jul, [facility] [address] [id number] [address] [place] [phone] Jul, [facility] [address] [id number] [address] [place] [phone] Jul, [facility] [address] [id number] [address] [place] [phone] Jul, [facility] [address] [id number] [address] [place] [address] Jul, [facility] [address] [id number] [address] [place] [address] Jul, Bipolar disorder, in partial remission, most recent episode depressed F31.75 and Mild cognitive impairment G31.84 [facility] [address] [id number] [address] [place] [phone] Jul, Chronic pain G89.29 ; Diabet es E11.9 ; Essential hypertension I10 ; Ill feeling R68.89 ; Local infection of the skin and subcutaneous tissue, unspecified L08.9 and Other injury of unspecified body region, initial encounter T14.8XXA [facility] [address] [id number] [address] [place] [address] Jun, Bipolar disorder, in partial remission, most recent episode depressed F31.75 and Mild cognitive impairment G31.84 [facility] [address] [facility] [id number] [address] [place] [address] Jun, [place] [address] [facility] [id number] [address] [place] [address] Jun, Bipolar disorder, in partial remission, most recent episode depressed F31.75 and Mild cognitive impairment G31.84 [place] [address] [facility] [id number] [address] [place] [address] Jun, Psychophysiological insomnia F51.04 [place] [address] [facility] [id number] [address] [place] [address] Jun, Psychophysiological insomnia F51.04 ; Chronic pain G89.29 ; Bipolar I disorder, most recent episode (or current) mixed, moderate F31.62 ; 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 ; Polyneuropathy associated with underlying disease G63 ; Type 2 diabetes mellitus with diabetic neuropathy, unspecified E11.40 ; shelter (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 Z79.4 and Hyperglycemia R73.9 [place] [address] [facility] [id number] [address] [place] [address] Jun, Bipolar disorder, in partial remission, most recent episode depressed F31.75 and Mild cognitive impairment G31.84 [place] [address] [facility] [id number] [address] [place] [phone] Jun, [place] [address] [facility] [id number] [address] [place] [phone] Jun, Bipolar disorder F31.9 [place] [address] [facility] [id number] [address] [place] [phone] May, Bipolar disorder, in partial remission, most recent episode depressed F31.75 and Mild cognitive impairment G31.84 [place] [address] [facility] [id number] [address] [place] [address] May, [place] [address] [facility] [id number] [address] [place] [phone] Apr, Chronic pain G89.29 and Bipo lar disorder F31.9 [facility] [address] [id number] [address] [place] [phone] Mar, Bipolar disorder F31.9 and C hronic pain G89.29 [facility] [address] [id number] [address] [place] [phone] Feb, Bipolar disorder F31.9 [facility] [address] [id number] [address] [place] [phone] Feb, Cellulitis of right upper ex tremity L03.113 and Skin abrasion T14.8XXA [facility] [address] [id number] [address] [place] [address] Feb, Bipolar disorder, in partial remission, most recent episode depressed F31.75 and Mild cognitive impairment G31.84 [facility] [address] [id number] [address] [place] [address] Feb, Chronic pain G89.29 [facility] [address] [id number] [address] [place] [address] Feb, Bipolar disorder, in partial remission, most recent episode depressed F31.75 and Mild cognitive impairment G31.84 [facility] [address] [id number] [address] [place] [phone] January, Bipolar disorder, in partial remission, most recent episode depressed F31.75 and Mild cognitive impairment G31.84 [facility] [address] [id number] [address] [place] [address] January, Chronic pain G89.29 and Bipo lar disorder F31.9 [facility] [address] [id number] [address] [place] [address] January, Bipolar disorder, in partial remission, most recent episode depressed F31.75 and Mild cognitive impairment G31.84 [facility] [address] [id number] [address] [place] [address] Dec, [facility] [address] [facility] [id number] [address] [place] [address] Dec, Chronic pain G89.29 and Bipo lar disorder F31.9 [facility] [address] [facility] [id number] [address] [place] [phone] 17 Dec, 2018 Edema of both lower extremit ies R60.0 [facility] [address] [facility] [id number] [address] [place] [address] 15 Dec, 2018 Bipolar disorder F31.9 [place] [address] [place] [id number] [address] [place] [address] Dec, Bipolar disorder, in partial remission, most recent episode depressed F31.75 and Mild cognitive impairment G31.84 [place] [address] [place] [id number] [address] [place] [address] Nov, [place] [address] [place] [id number] [address] [place] [address] Nov, Chronic pain G89.29 [place] [address] [place] [id number] [address] [place] [phone] Nov, Bipolar disorder, in partial remission, most recent episode depressed F31.75 and Mild cognitive impairment G31.84 [place] [address] [place] [id number] [address] [place] [phone] Nov, Bipolar disorder F31.9 [place] [address] [place] [id number] [address] [place] [phone] 04 Nov, 2018 Encounter for Medicare annua [...] unspecified morphology N40.1 and Essential hypertension I10 [place] [address] [place] [id number] [address] [place] [address] Oct, Chronic pain G89.29 [place] [address] [facility] [id number] [address] [place] [address] Oct, Diabetes E11.9 [place] [address] [facility] [id number] [address] [place] [address] Oct, Bipolar I disorder, most rec ent episode (or current) mixed, moderate F31.62 and Mild cognitive impairment G31.84 [place] [address] [place] [id number] [address] [place] [phone] Oct, Bipolar I disorder, most rec ent episode (or current) mixed, moderate F31.62 and Mild cognitive impairment G31.84 [place] [address] [place] [id number] [address] [place] [address] Sep, Bipolar I disorder, most rec ent episode (or current) mixed, moderate F31.62 and Mild cognitive impairment G31.84 [place] [address] [place] [id number] [address] [place] [phone] Sep, [address] [address] Sep, Diabetes E11.9 ; Hypoxia R09 .02 ; Hyperglycemia R73.9 ; Therapeutic drug monitoring Z51.81 ; BMI 50.0-59.9, adult Z68.43 and Skin cancer C44.90 [place] [id number] [address] [place] [address] Sep, Chronic pain G89.29 [place] [address] [place] [id number] [address] [place] [address] Sep, Bipolar I disorder, most rec ent episode (or current) mixed, moderate F31.62 [place] [address] [place] [id number] [address] [place] [address] Sep, [place] [address] [place] [id number] [place] [address] Sep, [facility] [address] [facility] [id number] [address] [place] [address] Aug, Chronic pain G89.29 [facility] [address] [facility] [id number] [address] [place] [address] Aug, Bipolar I disorder, most rec ent episode (or current) mixed, moderate F31.62 [facility] [address] [facility] [id number] [address] [place] [address] Aug, Bipolar I disorder, most rec ent episode (or current) mixed, moderate F31.62 and Mild cognitive impairment G31.84 [facility] [address] [facility] [id number] [address] [place] [address] Jul, [facility] [address] [facility] [id number] [address] [place] [address] Jul, Chronic pain G89.29 [facility] [address] [facility] [id number] [address] [place] [address] Jul, Bipolar I disorder, most rec ent episode (or current) mixed, moderate F31.62 and Mild cognitive impairment G31.84 [facility] [address] [place] [id number] [address] [place] [phone] Jul, Bipolar I disorder, most rec ent episode (or current) mixed, moderate F31.62 and MCI (mild cognitive impairment) G31.84 [facility] [address] [place] [id number] [address] [place] [phone] Jul, [facility] [address] [facility] [id number] [address] [place] [phone] Jul, [facility] [address] [facility] [id number] [address] [place] [address] Jul, Bipolar I disorder, most rec ent episode (or current) mixed, moderate F31.62 [facility] [address] [place] [id number] [address] [place] [address] Jul, Chronic pain G89.29 [facility] [address] [facility] [id number] [address] [place] [address] Jun, Bipolar I disorder, most rec ent episode (or current) mixed, moderate F31.62 [facility] [address] [facility] [id number] [address] [place] [phone] Jun, Pre-procedure lab exam Z01.8 12 [facility] [address] [facility] [id number] [address] [place] [address] Jun, [facility] [address] [id number] [place] [id number] Jun, [place] [address] [facility] [id number] [address] [place] [phone] Jun, [facility] [address] [facility] [id number] [address] [place] [id number] Jun, Forgetfulness R68.89 ; Pre-s yncope R55 ; Localized edema R60.0 ; Other iron deficiency anemia D50.8 and BMI 50.0-59.9, adult Z68.43 [facility] [address] [facility] [id number] [address] [place] [id number] Jun, Chronic pain G89.29 [facility] [address] [facility] [id number] [address] [place] [id number] Jun, Chronic pain G89.29 [facility] [address] [facility] [id number] [address] [place] [phone] Jun, Bipolar I disorder, most rec ent episode (or current) mixed, moderate F31.62 [facility] [address] [facility] [id number] [address] [place] [phone] May, Chronic pain G89.29 [facility] [address] [facility] [id number] [address] [place] [phone] Apr, [facility] [address] [facility] [id number] [address] [place] [phone] Apr, Chronic pain G89.29 [facility] [address] [facility] [id number] [address] [place] [phone] Apr, Primary osteoarthritis of ri ght knee M17.11 [facility] [address] [facility] [id number] [address] [place] [phone] Mar, [place] [address] [place] [id number] [address] [place] [phone] Mar, BMI 50.0-59.9, adult Z68.43 and Bipolar disorder, in partial remission, most recent episode depressed F31.75 [place] [address] [place] [id number] [address] [place] [phone] Mar, Diabetes E11.9 ; Pure hyperc holesterolemia E78.00 ; Essential hypertension I10 ; Nausea with vomiting, unspecified R11.2 and Headache, unspecified headache type R51 [place] [address] [facility] [id number] [address] [place] [phone] Mar, Bipolar I disorder, most rec ent episode (or current) mixed, moderate F31.62 [place] [address] [place] [id number] [address] [place] [phone] Mar, Bipolar I disorder, most rec ent episode (or current) mixed, moderate F31.62 [place] [address] [place] [id number] [address] [place] [phone] Mar, Chronic pain G89.29 [place] [address] [place] [id number] [address] [place] [id number] Mar, Bipolar I disorder, most rec ent episode (or current) mixed, moderate F31.62 [place] [address] [facility] [id number] [address] [place] [phone] 18 Feb, 2018 Bipolar I disorder, most rec ent episode (or current) mixed, moderate F31.62 [place] [address] [facility] [id number] [address] [place] [phone] 14 Feb, 2018 Chronic pain G89.29 [place] [address] [place] [id number] [address] [place] [phone] Feb, Decubitus ulcer of right josselin t, stage 3 L89.893 and BMI 50.0-59.9, adult Z68.43 [facility] [address] [facility] [id number] [address] [place] [phone] Feb, Bipolar I disorder, most rec ent episode (or current) mixed, moderate F31.62 [facility] [address] [facility] [id number] [address] [place] [phone] Feb, [facility] [address] [facility] [id number] [address] [place] [phone] January, [place] [address] [facility] [id number] [address] [place] [phone] January, Chronic pain G89.29 [facility] [address] [facility] [id number] [address] [place] [phone] January, Bipolar I disorder, most rec ent episode (or current) mixed, moderate F31.62 [place] [address] [facility] [id number] [address] [place] [phone] January, Bipolar I disorder, most rec ent episode (or current) mixed, moderate F31.62 [place] [address] [facility] [id number] [address] [place] [phone] Dec, Bipolar I disorder, most rec ent episode (or current) mixed, moderate F31.62 and BMI 50.0-59.9, adult Z68.43 [facility] [address] [facility] [id number] [address] [place] [id number] Dec, Bipolar I disorder, most rec ent episode (or current) mixed, moderate F31.62 [place] [address] [facility] [id number] [address] [place] [phone] Dec, Chronic pain G89.29 [facility] [address] [facility] [id number] [address] [place] [id number] Dec, DM neuro manif type II E11.4 9 ; Right flank pain R10.9 ; shelter current use of opiate analgesic Z79.891 ; Encounter for medication monitoring Z51.81 and BMI 50.0-59.9, adult Z68.43 [place] [address] [place] [id number] [address] [place] [phone] Dec, Bipolar I disorder, most rec ent episode (or current) mixed, moderate F31.62 [place] [address] [place] [id number] [address] [place] [phone] Nov, Bipolar I disorder, most rec ent episode (or current) mixed, moderate F31.62 [place] [address] [place] [id number] [place] [phone] Nov, Chronic pain G89.29 [place] [address] [place] [id number] [place] [phone] Nov, Bipolar I disorder, most rec ent episode (or current) mixed, moderate F31.62 [place] [address] [place] [id number] [address] [place] [phone] Nov, Hypokalemia E87.6 [place] [address] [place] [id number] [place] [phone] Nov, Bipolar I disorder, most rec ent episode (or current) mixed, moderate F31.62 [place] [address] [place] [id number] [address] [place] [id number] Oct, Chronic pain G89.29 [place] [address] [place] [id number] [place] [phone] Oct, BMI 50.0-59.9, adult Z68.43 and Bipolar I disorder, most recent episode (or current) mixed, moderate F31.62 [place] [address] [place] [id number] [address] [place] [phone] Oct, Bipolar I disorder, most rec ent episode (or current) mixed, moderate F31.62 [place] [address] [place] [id number] [address] [place] [phone] Oct, [facility] [address] [id number] [address] [place] [phone] Oct, Hypokalemia E87.6 [facility] [address] [facility] [id number] [address] [place] [phone] Oct, DM neuro manif type II E11.4 9 [facility] [address] [facility] [id number] [address] [place] [phone] Oct, Bipolar I disorder, most rec ent episode (or current) mixed, moderate F31.62 [facility] [address] [facility] [id number] [address] [place] [phone] Oct, Bipolar I disorder, most rec ent episode (or current) mixed, moderate F31.62 [facility] [address] [facility] [id number] [address] [place] [phone] 14 Oct, 2017 Hyperkalemia E87.5 ; Falling R29.6 ; BMI 50.0-59.9, adult Z68.43 and Acute left ankle pain M25.572 [facility] [address] [facility] [id number] [address] [place] [phone] Oct, DM neuro manif type II E11.4 9 [facility] [address] [facility] [id number] [address] [place] [phone] Oct, [facility] [address] [facility] [id number] [address] [place] [phone] Sep, Chronic pain G89.29 [facility] [address] [facility] [id number] [address] [place] [phone] Sep, [facility] [address] [facility] [id number] [address] [place] [phone] Sep, Bilateral primary osteoarthr itis of knee M17.0 [facility] [address] [facility] [id number] [address] [place] [phone] Sep, Generalized edema R60.1 [place] [address] [facility] [id number] [address] [place] [phone] 16 Sep, 2017 Bipolar I disorder, most rec ent episode (or current) mixed, moderate F31.62 [place] [address] [place] [id number] [address] [place] [phone] 15 Sep, 2017 Hypoxia R09.02 ; Other hyper volemia E87.79 ; Diabetes E11.9 ; Retinal edema H35.81 ; Hypokalemia E87.6 ; 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 ; Anemia of chronic illness D63.8 and BMI 50.0- 59.9, adult Z68.43 [place] [address] [phone] 03 Sep, 2017 [place] [address] [place] [id number] [place] [phone] Sep, Bipolar I disorder, most rec ent episode (or current) mixed, moderate F31.62 [place] [id number] [place] [phone] 28 Aug, 2017 Chronic pain G89.29 [place] [address] [place] [id number] [place] [phone] 27 Aug, 2017 Generalized edema R60.1 [place] [address] [place] [id number] [address] [place] [phone] 18 Aug, 2017 [place] [address] [place] [id number] [address] [place] [phone] 18 Aug, 2017 [place] [address] [place] [id number] [address] [place] [phone] 14 Aug, 2017 Bipolar I disorder, most rec ent episode (or current) mixed, moderate F31.62 [place] [address] [place] [id number] [address] [place] [phone] 07 Aug, 2017 Bipolar I disorder, most rec ent episode (or current) mixed, moderate F31.62 [place] [address] [place] [id number] [address] [place] [phone] Aug, Chronic pain G89.29 [facility] [address] [facility] [id number] [address] [place] [phone] Jul, Bipolar I disorder, most rec ent episode (or current) mixed, moderate F31.62 [facility] [address] [facility] [id number] [address] [place] [id number] Jul, Bipolar I disorder, most rec ent episode (or current) mixed, moderate F31.62 and BMI 60.0-69.9, adult Z68.44 [facility] [address] [facility] [id number] [address] [place] [phone] Jul, Bipolar I disorder, most rec ent episode (or current) mixed, moderate F31.62 [place] [address] [place] [id number] [address] [place] [phone] Jul, Chronic pain G89.29 [facility] [address] [place] [id number] [address] [place] [phone] Jul, Bipolar I disorder, most rec ent episode (or current) mixed, moderate F31.62 [place] [address] [place] [id number] [address] [place] [phone] Jun, Polyneuropathy associated wi th underlying disease G63 and Diabetes E11.9 [facility] [address] [facility] [id number] [address] [place] [phone] Jun, Bipolar I disorder, most rec ent episode (or current) mixed, moderate F31.62 [facility] [address] [facility] [id number] [address] [place] [phone] Jun, Chronic pain G89.29 [facility] [address] [facility] [id number] [address] [place] [phone] May, Bipolar I disorder, most rec ent episode (or current) mixed, moderate F31.62 [facility] [address] [facility] [id number] [address] [place] [phone] May, Bipolar I disorder, most rec ent episode (or current) mixed, moderate F31.62 [facility] [address] [id number] [address] [place] [phone] 20 May, 2017 Diabetic polyneuropathy asso ciated with type 2 diabetes mellitus E11.42 [facility] [address] [id number] [address] [place] [phone] 18 May, 2017 Bipolar I disorder, most rec ent episode (or current) mixed, moderate F31.62 [facility] [address] [id number] [address] [place] [phone] 13 May, 2017 Bipolar I disorder, most rec ent episode (or current) mixed, moderate F31.62 [facility] [address] [id number] [address] [place] [phone] 12 May, 2017 Chronic pain G89.29 [facility] [address] [id number] [address] [place] [phone] Apr, Bipolar I disorder, most rec ent episode (or current) mixed, moderate F31.62 [facility] [address] [id number] [address] [place] [phone] Apr, [facility] [address] [id number] [address] [place] [phone] Apr, Chronic pain G89.29 and DM n euro manif type II E11.49 [facility] [address] [id number] [address] [place] [phone] Apr, [facility] [address] [id number] [address] [place] [phone] Apr, Bipolar I disorder, most rec ent episode (or current) mixed, moderate F31.62 [facility] [address] [id number] [address] [place] [phone] 14 Apr, 2017 Chronic pain G89.29 [facility] [address] [id number] [address] [place] [phone] 03 Apr, 2017 Iliotibial band syndrome, le ft M76.32 [facility] [address] [facility] [id number] [address] [place] [phone] Apr, Bipolar I disorder, most rec ent episode (or current) mixed, moderate F31.62 [facility] [address] [facility] [id number] [address] [place] [phone] Mar, Bipolar I disorder, most rec ent episode (or current) mixed, moderate F31.62 [facility] [address] [facility] [id number] [address] [place] [phone] Mar, Bipolar I disorder, most rec ent episode (or current) mixed, moderate F31.62 [facility] [address] [facility] [id number] [address] [place] [phone] Mar, [facility] [address] [facility] [id number] [address] [place] [phone] Mar, Bipolar I disorder, most rec ent episode (or current) mixed, moderate F31.62 [facility] [address] [facility] [id number] [address] [place] [id number] Mar, Chronic pain G89.29 [facility] [address] [facility] [id number] [address] [place] [phone] Mar, Bipolar I disorder, most rec ent episode (or current) mixed, moderate F31.62 [facility] [address] [facility] [id number] [address] [place] [phone] Mar, Bipolar I disorder, most rec ent episode (or current) mixed, moderate F31.62 [facility] [address] [facility] [id number] [address] [place] [phone] Mar, Acute pain of left knee M25. 562 ; Left hip pain M25.552 ; Generalized edema R60.1 and Tongue swelling R22.0 [facility] [address] [facility] [id number] [address] [place] [phone] Mar, [facility] [address] [place] [id number] [address] [place] [id number] Feb, Chronic pain G89.29 [facility] [address] [facility] [id number] [address] [place] [phone] Feb, Diabetes E11.9 [facility] [address] [facility] [id number] [address] [place] [phone] January, Chronic pain G89.29 [facility] [address] [facility] [id number] [address] [place] [phone] January, [facility] [address] [facility] [id number] [address] [place] [phone] January, Bipolar I disorder, most rec ent episode (or current) mixed, moderate F31.62 [facility] [address] [facility] [id number] [address] [place] [phone] Dec, Bipolar I disorder, most rec ent episode (or current) mixed, moderate F31.62 [facility] [address] [facility] [id number] [address] [place] [phone] Dec, Chronic pain G89.29 [facility] [address] [facility] [id number] [address] [place] [phone] Dec, Bipolar I disorder, most rec ent episode (or current) mixed, moderate F31.62 [facility] [address] [facility] [id number] [address] [place] [phone] Dec, Diabetes E11.9 ; Essential h ypertension I10 ; Chronic pain G89.29 and Morbid obesity E66.01 [facility] [address] [facility] [id number] [address] [place] [phone] Dec, [facility] [address] [facility] [id number] [address] [place] [phone] Dec, Bipolar I disorder, most rec ent episode (or current) mixed, moderate F31.62 [facility] [address] [facility] [id number] [address] [place] [phone] Dec, Bipolar I disorder, most rec ent episode (or current) mixed, moderate F31.62 [facility] [address] [id number] [address] [place] [phone] Nov, Chronic pain G89.29 [facility] [address] [id number] [address] [place] [phone] Nov, Bipolar I disorder, most rec ent episode (or current) mixed, moderate F31.62 [facility] [address] [facility] [id number] [address] [place] [phone] Nov, [facility] [address] [id number] [address] [place] [phone] Nov, Bipolar I disorder, most rec ent episode (or current) mixed, moderate F31.62 [facility] [address] [facility] [id number] [address] [place] [phone] Nov, Bipolar I disorder, most rec ent episode (or current) mixed, moderate F31.62 [facility] [address] [facility] [id number] [address] [place] [phone] Nov, [facility] [address] [facility] [id number] [address] [place] [phone] Nov, [facility] [address] [facility] [id number] [address] [place] [phone] Nov, [facility] [address] [facility] [id number] [address] [place] [phone] Oct, Chronic pain G89.29 [facility] [address] [facility] [id number] [address] [place] [phone] Oct, Bipolar I disorder, most rec ent episode (or current) mixed, moderate F31.62 [facility] [address] [facility] [id number] [address] [place] [phone] Oct, [facility] [address] [facility] [id number] [address] [place] [phone] 15 Oct, 2016 Chronic pain G89.29 ; Diabet es E11.9 ; Anxiety F41.9 and 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 [facility] [address] [id number] [address] [place] [phone] Oct, [facility] [address] [id number] [address] [place] [phone] Oct, Diabetes E11.9 [facility] [address] [id number] [address] [place] [phone] Oct, Bipolar I disorder, most rec ent episode (or current) mixed, moderate F31.62 [facility] [address] [id number] [address] [place] [phone] Sep, Chronic pain G89.29 [facility] [address] [id number] [address] [place] [address] Sep, Chronic pain G89.29 [facility] [address] [id number] [address] [place] [phone] Aug, Chronic pain G89.29 [facility] [address] [id number] [address] [place] [phone] Jul, [facility] [address] [id number] [address] [place] [phone] Jul, Diabetes E11.9 [facility] [address] [id number] [address] [place] [address] Jul, Chronic pain G89.29 [facility] [address] [id number] [address] [place] [phone] Jul, Bipolar I disorder, most rec ent episode (or current) mixed, moderate F31.62 [facility] [address] [id number] [address] [place] [phone] Jun, Bipolar I disorder, most rec ent episode (or current) mixed, moderate F31.62 [facility] [address] [id number] [address] [place] [phone] Jun, [facility] [address] [facility] [id number] [address] [place] [phone] Jun, Bipolar I disorder, most rec ent episode (or current) mixed, moderate F31.62 [facility] [address] [facility] [id number] [address] [place] [phone] 30 May, 2016 Insomnia, unspecified type G 47.00 [facility] [address] [place] [id number] [address] [place] [phone] 22 May, 2016 Bipolar I disorder, most rec ent episode (or current) mixed, moderate F31.62 [facility] [address] [facility] [id number] [address] [place] [phone] 14 May, 2016 [place] [address] [place] [id number] [place] [phone] 08 May, 2016 Bipolar I disorder, most rec ent episode (or current) mixed, moderate F31.62 [place] [address] [place] [id number] [address] [place] [phone] 06 May, 2016 Diabetes E11.9 and Essential hypertension I10 [place] [address] [place] [id number] [address] [place] [phone] Apr, Chronic pain G89.29 [place] [address] [place] [id number] [place] [phone] Apr, Bipolar I disorder, most rec ent episode (or current) mixed, moderate F31.62 [facility] [address] [place] [id number] [place] [phone] Apr, [facility] [address] [place] [id number] [place] [phone] Apr, [facility] [address] [place] [id number] [place] [phone] Mar, Chronic pain G89.29 ; Headac he, unspecified headache type R51 ; Neuropathy G62.9 ; Pain of right hip joint M25.551 and Essential hypertension I10 [facility] [address] [place] [id number] [place] [id number] Mar, Chronic pain G89.29 [facility] [address] [id number] [address] [place] [phone] Mar, Bipolar I disorder, most rec ent episode (or current) mixed, moderate F31.62 [facility] [address] [id number] [address] [place] [phone] Feb, Bipolar I disorder, most rec ent episode (or current) mixed, moderate F31.62 and Insomnia, unspecified type G47.00 [facility] [address] [id number] [address] [place] [phone] Feb, Chronic pain G89.29 [facility] [address] [id number] [address] [place] [phone] Feb, Bipolar I disorder, most rec ent episode (or current) mixed, moderate F31.62 [facility] [address] [facility] [place] [id number] [address] [place] [address] January, Bipolar I disorder, most rec ent episode (or current) mixed, moderate F31.62 [facility] [address] [id number] [address] [place] [address] January, Chronic pain G89.29 [facility] [address] [id number] [address] [place] [address] January, Chronic pain G89.29 and Esse ntial hypertension I10 [facility] [address] [id number] [address] [place] [address] January, Bipolar I disorder, most rec ent episode (or current) mixed, moderate F31.62 [facility] [address] [facility] [id number] [address] [place] [address] Dec, [facility] [address] [facility] [id number] [address] [place] [address] Dec, [facility] [address] [facility] [id number] [address] [place] [address] Dec, [place] [id number] [facility] [id number] [address] [place] [address] Dec, [facility] [address] [address] Nov, Reactive airway disease J45. 909 [facility] [address] [place] [id number] [address] [place] [address] Nov, [facility] [address] [place] [id number] [place] [address] Nov, [facility] [address] [place] [id number] [address] [place] [address] Nov, [facility] [address] [address] Nov, [facility] [address] [address] Nov, Onychomycosis B35.1 ; Hammer toe M20.40 ; Isabella or callus L84 and DM neuro manif type II E11.49 [facility] [address] [address] Nov, Chronic pain G89.29 ; Leukoc ytosis D72.829 and Diabetes E11.9 [facility] [address] [place] [id number] [address] [place] [address] Nov, [facility] [address] [address] Oct, Bronchitis J40 [facility] [address] [place] [id number] [address] [place] [address] Oct, [facility] [address] [address] Oct, [facility] [address] [place] [id number] [address] [place] [address] Oct, Mastoiditis, unspecified lat erality H70.90 and Type 2 diabetes mellitus with complication E11.8 [facility] [id number] [place] [address] Sep, [facility] [address] [address] Sep, Dysuria R30.0 ; Cough R05 ; Benign prostatic hyperplasia with lower urinary tract symptoms, unspecified morphology N40.1 ; Hypokalemia E87.6 and Eustachian tube dysfunction, unspecified laterality H69.80 [facility] [address] [place] [id number] [address] [place] [address] Sep, Moderate mixed bipolar I dis order F31.62 [facility] [address] [place] [id number] [place] [address] Sep, Hypokalemia E87.6 [place] [address] [address] Sep, [facility] [address] [place] [id number] [address] [place] [address] Sep, Upper respiratory tract infe ction, unspecified type J06.9 [facility] [address] [place] [id number] [address] [place] [address] Aug, [facility] [address] [address] Aug, Dysuria R30.0 [facility] [address] [place] [id number] [address] [place] [address] Aug, [facility] [address] [place] [id number] [address] [place] [address] Jul, [facility] [address] [place] [id number] [address] [place] [address] Jul, [facility] [address] [place] [id number] [address] [place] [address] Jul, [facility] [address] [address] Jul, [facility] [address] [facility] [id number] [address] [place] [address] Jun, [facility] [address] [place] [id number] [address] [place] [address] Jun, [facility] [address] [place] [id number] [address] [place] [address] Jun, [facility] [address] [facility] [id number] [address] [place] [address] May, [facility] [address] [facility] [id number] [address] [place] [address] May, Bipolar I disorder, most rec ent episode (or current) mixed, moderate 296.62 [facility] [address] [place] [id number] [address] [place] [address] May, [facility] [address] [place] [id number] [address] [place] [address] May, Bipolar I disorder, most rec ent episode (or current) mixed, moderate 296.62 and Major depressive disorder, recurrent episode, severe, specified as with psychotic behavior 296.34 [facility] [address] [place] [id number] [address] [place] [address] May, Bipolar I disorder, most rec ent episode (or current) mixed, moderate 296.62 [facility] [address] [place] [id number] [address] [place] [address] May, [facility] [address] [place] [id number] [address] [place] [address] Apr, [facility] [address] [place] [id number] [address] [place] [address] Apr, [facility] [address] [place] [id number] [address] [place] [address] Apr, Unspecified disorder of kidn ey and ureter 593.9 and Diabetes mellitus type 2, uncontrolled 250.02 [facility] [address] [place] [id number] [address] [place] [address] Apr, [facility] [address] [facility] [id number] [address] [place] [address] Apr, [facility] [address] [facility] [id number] [address] [place] [address] Apr, [facility] [address] [facility] [id number] [address] [place] [address] Apr, [facility] [address] [place] [id number] [address] [place] [address] Apr, Diabetes mellitus type II, u ncontrolled 250.02 [facility] [address] [place] [id number] [place] [address] Apr, [facility] [address] [place] [id number] [place] [address] Mar, [facility] [address] [place] [id number] [address] [place] [address] Mar, [facility] [address] [place] [id number] [address] [place] [address] Mar, [facility] [address] [place] [id number] [address] [place] [address] Mar, Major depressive disorder, r ecurrent episode, severe, specified as with psychotic behavior 296.34 and Bipolar I disorder, most recent episode (or current) mixed, moderate 296.62 [facility] [address] [place] [id number] [address] [place] [address] Mar, Diabetes 250.00 ; Anuria 788 .5 ; Nausea and vomiting 787.01 and Diarrhea 787.91 [facility] [address] [place] [id number] [address] [place] [address] Mar, Diabetes 250.00 [facility] [address] [place] [id number] [address] [place] [address] Mar, [facility] [address] [place] [id number] [address] [place] [address] Mar, Diabetes 250.00 [facility] [address] [address] Mar, [facility] [address] [address] Mar, [facility] [address] [address] Mar, [facility] [address] [address] Mar, [facility] [address] [address] Mar, Bipolar I disorder, most rec ent episode (or current) mixed, moderate 296.62 and Major depressive disorder, recurrent episode, severe, specified as with psychotic behavior 296.[address] [address] Mar, Magnesium deficiency 275.2 ; Hypokalemia 276.8 ; Nausea & vomiting 787.01 and Diabetes mellitus type 2, uncontrolled 250.02 [facility] [address] [address] Feb, [facility] [address] [address] Feb, Bipolar I disorder, most rec ent episode (or current) mixed, moderate 296.62 [facility] [address] [address] Feb, Nausea and vomiting 787.01 ; Left elbow pain 719.42 ; Anuria 788.5 and Diabetes 250.00 [facility] [address] [address] Feb, [facility] [address] [address] Feb, Hypopotassemia 276.8 and Hyp okalemia 276.8 [facility] [address] [id number] [address] [place] [address] Feb, Hypopotassemia 276.8 and Hyp okalemia 276.8 [facility] [address] [id number] [address] [place] [address] Feb, Seborrheic keratoses 702.19 [facility] [address] [id number] [address] [place] [address] Feb, Hypopotassemia 276.8 and Low magnesium levels 275.2 [facility] [address] [id number] [address] [place] [address] January, [facility] [address] [id number] [address] [place] [address] January, [facility] [address] [id number] [address] [place] [address] January, [facility] [address] [id number] [address] [place] [address] January, Scalp lesion 709.9 [facility] [address] [id number] [address] [place] [address] January, [facility] [address] [facility] [id number] [address] [place] [address] Dec, Tear of medial cartilage or meniscus of knee, current 836.0 and Chondromalacia 733.92 [facility] [address] [id number] [address] [place] [address] Dec, [facility] [address] [id number] [address] [place] [address] Dec, [facility] [address] [id number] [address] [place] [address] Dec, Squamous cell carcinoma, 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 [facility] [address] [id number] [address] [place] [address] 14 Dec, 2014 [facility] [address] [id number] [address] [place] [address], [place] [address] 13 Dec, 2014 [facility] [address] [id number] [address] [place] [address], [place] [address] Nov, [facility] [address] [id number] [address] [place] [address], [place] [address] Nov, [facility] [address] [id number] [address] [place] [address], [place] [address] Nov, [facility] [address] [id number] [address] [place] [address], [place] [address] Nov, [facility] [address] [id number] [address] [place] [address], [place] [address] Nov, [facility] [address] [id number] [address] [place] [address], [place] [address] Nov, [facility] [address] [id number] [address] [place] [address], [place] [address] Nov, [facility] [address] [id number] [address] [place] [address], [place] [address] Nov, [facility] [address] [id number] [address] [place] [address], [place] [address] Nov, [facility] [address] [id number] [address] [place] [address], [place] [address] Nov, [facility] [address] [id number] [address] [place] [address], [place] [address] Nov, [facility] [address] [id number] [address] [place] [address], [place] [address] Nov, [facility] [address] [id number] [address] [place] [address], [place] [address] Oct, [facility] [address] [id number] [address] [place] [address], [place] [address] Oct, [facility] [address] [id number] [address] [place] [address], [place] [address] Oct, 2014 [facility] [address] [id number] [address] [place] [address], [place] [address] Oct, [facility] [address] [id number] [address] [place] [address], [place] [address] Oct, [facility] [address] [id number] [address] [place] [address], [place] [address] Oct, 2014 [facility] [address] [id number] [address] [place] [address], [place] [address] Oct, 2014 [facility] [address] [id number] [address] [place] [address], [place] [address] Oct, [facility] [address] [id number] [address] [place] [address], [place] [address] Oct, [facility] [address] [id number] [address] [place] [address], [place] [address] Sep, [facility] [address] [id number] [address] [place] [address], [place] [address] Sep, [facility] [address] [id number] [address] [place] [address], [place] [address] Sep, [facility] [address] [id number] [address] [place] [address], [place] [address] Sep, [facility] [address] [id number] [address] [place] [address], [place] [address] Sep, [facility] [address] [id number] [address] [place] [address], [place] [address] Sep, [facility] [address] [id number] [address] [place] [address], [place] [address] Sep, [facility] [address] [id number] [address] [place] [address], [place] [address] Sep, [facility] [address] [id number] [address] [place] [address], [place] [address] Sep, [facility] [address] [id number] [address] [place] [address], [place] [address] 14 Sep, 2014 [facility] [address] [id number] [address] [place] [address], [place] [address] Sep, [facility] [address] [id number] [address] [place] [address], [place] [address] 08 Sep, 2014 [facility] [address] [id number] [address] [place] [address], [place] [address] Sep, [facility] [address] [id number] [address] [place] [address], [place] [address] Sep, [facility] [address] [id number] [address] [place] [address], [place] [address] Sep, [facility] [address] [id number] [address] [place] [address], [place] [address] Sep, [facility] [address] [id number] [address] [place] [address], [place] [address] Aug, [facility] [address] [id number] [address] [place] [address], [place] [address] Aug, [facility] [address] [id number] [address] [place] [address], [place] [address] Aug, [facility] [address] [id number] [address] [place] [address], [place] [address] 31 Aug, 2014 [facility] [address] [id number] [address] [place] [address], [place] [address] 31 Aug, 2014 [facility] [address] [id number] [address] [place] [address], [place] [address] 31 Aug, 2014 [facility] [address] [id number] [address] [place] [address], [place] [address] 17 Aug, 2014 [facility] [address] [id number] [address] [place] [address], [place] [address] 17 Aug, 2014 [facility] [address] [id number] [address] [place] [address], [place] [address] Aug, [facility] [address] [id number] [facility] [place] [address] Aug, [facility] [address] [id number] [facility] [place] [address] Aug, [facility] [address] [facility] [place] [id number] Aug, [facility] [address] [id number] [facility] [place] [address] Aug, [facility] [address] [id number] [facility] [place] [address] Aug, [facility] [address] [id number] [facility] [place] [address] Aug, [facility] [address] [id number] [facility] [place] [address] Aug, [facility] [address] [id number] [address] [place] [address], [place] [address] Aug, [facility] [address] [id number] [address] [place] [address], [place] [address] Aug, [facility] [address] [id number] [address] [place] [address], [place] [address] Aug, [facility] [address] [id number] [address] [place] [address], [place] [address] Aug, [facility] [address] [id number] [address] [place] [address], [place] [address] Aug, [facility] [address] [id number] [address] [place] [address], [place] [address] Aug, [facility] [address] [id number] [address] [place] [address], [place] [address] Aug, [facility] [address] [id number] [address] [place] [address], [place] [address] Aug, [facility] [address] [id number] [address] [place] [address], [place] [address] Aug, [facility] [address] [id number] [address] [place] [address], [place] [address] Aug, [facility] [address] [id number] [address] [place] [address], [place] [address] Aug, [facility] [address] [id number] [address] [place] [address], [place] [address] Aug, [facility] [address] [id number] [address] [place] [address], [place] [address] Aug, [facility] [address] [id number] [address] [place] [address], [place] [address] Aug, [facility] [address] [id number] [address] [place] [address], [place] [address] Jul, [facility] [address] [id number] [address] [place] [address], [place] [address] Jul, [facility] [address] [id number] [address] [place] [address], [place] [address] Jul, [facility] [address] [id number] [address] [place] [address], [place] [address] Jul, [facility] [address] [id number] [address] [place] [address], [place] [address] Jul, [facility] [address] [id number] [address] [place] [address], [place] [address] Jul, [facility] [address] [id number] [address] [place] [address], [place] [address] Jul, [facility] [address] [id number] [address] [place] [address], [place] [address] Jul, [facility] [address] [id number] [address] [place] [address], [place] [address] Jul, [facility] [address] [id number] [address] [place] [address], [place] [address] Jul, [facility] [address] [id number] [address] [place] [address], [place] [address] Jun, [facility] [address] [id number] [address] [place] [address], [place] [address] Jun, [facility] [address] [id number] [address] [place] [address], [place] [address] 16 Jun, 2014 [facility] [address] [id number] [address] [place] [address], [place] [address] 16 Jun, 2014 [facility] [address] [id number] [address] [place] [address], [place] [address] 15 Jun, 2014 [facility] [address] [id number] [address] [place] [address], [place] [address] 15 Jun, 2014 [facility] [address] [id number] [address] [place] [address], [place] [address] 05 Jun, 2014 [facility] [address] [id number] [address] [place] [address], [place] [address] Jun, [facility] [address] [id number] [address] [place] [address], [place] [address] Jun, [facility] [address] [id number] [address] [place] [address], [place] [address] Jun, [facility] [address] [id number] [address] [place] [address], [place] [address] 29 May, 2013 [facility] [address] [id number] [address] [place] [address], [place] [address] 29 Sep, 2013 [facility] [address] [id number] [address] [place] [address], [place] [address] 26 Sep, 2013 [facility] [address] [id number] [address] [place] [address], [place] [address] 26 Sep, 2013 [facility] [address] [id number] [address] [place] [address], [place] [address] 17 Sep, 2013 [facility] [address] [id number] [address] [place] [address], [place] [address] 17 Sep, 2013 [facility] [address] [id number] [facility] [place] [address] 15 May, 2013 [facility] [address] [id number] [address] [place] [address], [place] [address] 15 May, 2013 [facility] [address] [id number] [address] [place] [address], [place] [address] 15 May, 2013 [facility] [address] [id number] [address] [place] [address], [place] [address] 15 May, 2013 [facility] [address] [id number] [address] [place] [address], [place] [address] 10 May, 2013 [facility] [address] [id number] [address] [place] [address], [place] [address] 10 May, 2013 [facility] [address] [id number] [address] [place] [address], [place] [address] 09 May, 2013 [facility] [address] [id number] [address] [place] [address], [place] [address] 09 May, 2013 [facility] [address] [id number] [address] [place] [address], [place] [address] 04 May, 2013 [facility] [address] [id number] [address] [place] [address], [place] [address] May, 2013 [facility] [address] [id number] [address] [place] [address], [place] [address] Apr, [facility] [address] [id number] [address] [place] [address], [place] [address] Apr, [facility] [address] [id number] [address] [place] [address], [place] [address] Apr, [facility] [address] [id number] [address] [place] [address], [place] [address] Apr, [facility] [address] [id number] [address] [place] [address], [place] [address] Apr, [facility] [place] [address] [id number] [address] [place] [address], [place] [address] Apr, [facility] [address] [id number] [facility] [place] [address] Apr, [facility] [place] [address] [id number] [address] [place] [address], [place] [address] Apr, [facility] [place] [address] [id number] [address] [place] [address], [place] [address] Apr, [facility] [place] [address] [id number] [address] [place] [address], [place] [address] Apr, [facility] [place] [address] [id number] [address] [place] [address], [place] [address] Apr, [facility] [address] [id number] [address] [place] [address], [place] [address] Apr, [facility] [address] [id number] [address] [place] [address], [place] [address] Apr, [facility] [address] [id number] [address] [place] [address], [place] [address] Apr, [facility] [address] [id number] [address] [place] [address], [place] [address] Apr, [facility] [address] [id number] [address] [place] [address], [place] [address] Mar, [facility] [place] [address] [id number] [address] [place] [address], [place] [address] Mar, [facility] [place] [facility] [address] [id number] [address] [place] [address], [place] [address] Mar, [facility] [place] [address] [id number] [address] [place] [address], [place] [address] Mar, [facility] [place] [address] [id number] [address] [place] [address], [place] [address] Mar, [facility] [place] [address] [id number] [address] [place] [address], [place] [address] Mar, [facility] [place] [facility] [address] [id number] [facility] [place] [address] Mar, 2013 [facility] [place] [facility] [address] [id number] [facility] [place] [address] Mar, 2013 [facility] [place] [address] [id number] [address] [place] [address], [place] [address] Mar, 2013 [facility] [place] [facility] [address] [id number] [address] [place] [address], [place] [address] Mar, 2013 [facility] [place] [facility] [address] [id number] [address] [place] [address], [place] [address] Mar, 2013 [facility] [place] [address] [id number] [address] [place] [address], [place] [address] Mar, 2013 [facility] [place] [facility] [address] [id number] [address] [place] [address], [place] [address] Mar, 2013 [facility] [place] [facility] [address] [id number] [address] [place] [address], [place] [address] Mar, 2013 [facility] [place] [facility] [address] [id number] [address] [place] [address], [place] [address] Mar, 2013 [facility] [place] [facility] [address] [id number] [address] [place] [address], [place] [address] Mar, 2013 [facility] [place] [facility] [address] [id number] [address] [place] [address], [place] [address] Mar, [facility] [place] [facility] [address] [id number] [address] [place] [address], [place] [address] Mar, [facility] [place] [facility] [address] [id number] [address] [place] [address], [place] [address] Feb, [facility] [place] [address] [id number] [address] [place] [address], [place] [address] Feb, [facility] [place] [address] [id number] [address] [place] [address], [place] [address] Feb, [facility] [place] [facility] [address] [id number] [address] [place] [address], [place] [address] Feb, [facility] [address] [id number] [facility] [place] [address] Feb, [facility] [place] [facility] [address] [id number] [facility] [place] [address] Feb, [facility] [place] [facility] [address] [id number] [facility] [place] [address] Feb, [facility] [place] [facility] [address] [id number] [facility] [place] [address] Feb, [facility] [place] [facility] [address] [id number] [facility] [place] [address] Feb, [facility] [place] [facility] [address] [id number] [address] [place] [address], [place] [address] Feb, [facility] [place] [facility] [address] [id number] [facility] [place] [address] Feb, [facility] [place] [address] [id number] [address] [place] [address], [place] [address] Feb, [facility] [place] [facility] [address] [id number] [address] [place] [address], [place] [address] Feb, [facility] [place] [facility] [address] [id number] [address] [place] [address], [place] [address] Feb, [facility] [place] [facility] [address] [id number] [address] [place] [address], [place] [address] January, [facility] [place] [facility] [address] [id number] [address] [place] [address], [place] [address] January, [facility] [place] [facility] [address] [id number] [facility] [place] [address] January, [facility] [place] [facility] [address] [id number] [address] [place] [address], [place] [address] January, [facility] [place] [facility] [address] [id number] [facility] [place] [address] January, [facility] [place] [facility] [address] [id number] [address] [address] January, [facility] [address] [id number] [address] [place] [address], [place] [address] January, [facility] [address] [id number] [address] [place] [address], [place] [address] January, [facility] [address] [id number] [address] [place] [address], [place] [address] January, [facility] [address] [id number] [address] [place] [address], [place] [address] January, [facility] [address] [id number] [address] [place] [address], [place] [address] January, [facility] [address] [id number] [address] [place] [address], [place] [address] January, [facility] [address] [id number] [address] [place] [address], [place] [address] January, [facility] [address] [id number] [address] [place] [address], [place] [address] January, [facility] [address] [id number] [address] [place] [address], [place] [address] Dec, [facility] [address] [id number] [address] [place] [address], [place] [address] Dec, [facility] [address] [id number] [address] [place] [address], [place] [address] Dec, [facility] [address] [id number] [address] [place] [address], [place] [address] Dec, [facility] [address] [id number] [address] [place] [address], [place] [address] Dec, [facility] [address] [id number] [address] [place] [address], [place] [address] Dec, [facility] [address] [id number] [address] [place] [address], [place] [address] Dec, [facility] [address] [id number] [facility] [place] [address] Dec, [facility] [address] [id number] [address] [place] [address], [place] [address] Dec, [facility] [address] [id number] [address] [place] [address], [place] [address] Dec, [facility] [address] [id number] [address] [place] [address], [place] [address] Nov, [facility] [address] [id number] [address] [place] [address], [place] [address] Nov, [facility] [address] [id number] [address] [place] [address], [place] [address] Nov, [facility] [address] [id number] [address] [place] [address], [place] [address] Nov, [facility] [address] [id number] [address] [place] [address], [place] [address] Nov, [facility] [address] [id number] [address] [place] [address], [place] [address] Nov, [facility] [address] [id number] [address] [place] [address], [place] [address] Nov, [facility] [address] [id number] [address] [place] [address], [place] [address] Nov, [facility] [address] [id number] [address] [place] [address], [place] [address] Nov, [facility] [address] [id number] [address] [place] [address], [place] [address] Nov, [facility] [address] [id number] [address] [place] [address], [place] [address] Oct, [facility] [address] [id number] [address] [place] [address], [place] [address] Oct, [facility] [address] [id number] [address] [place] [address], [place] [address] Oct, [facility] [address] [id number] [address] [place] [address], [place] [address] Oct, [facility] [address] [id number] [address] [place] [address], [place] [address] Oct, [facility] [address] [id number] [address] [place] [address], [place] [address] Oct, [facility] [address] [id number] [address] [place] [address], [place] [address] Oct, [facility] [address] [id number] [address] [place] [address], [place] [address] Oct, [facility] [address] [id number] [address] [place] [address], [place] [address] Oct, [facility] [address] [id number] [address] [place] [address], [place] [address] Oct, [facility] [address] [id number] [address] [place] [address], [place] [address] Oct, [facility] [address] [id number] [address] [place] [address], [place] [address] Oct, [facility] [address] [id number] [address] [place] [address], [place] [address] Oct, [facility] [address] [id number] [address] [place] [address], [place] [address] Oct, [facility] [address] [id number] [address] [place] [address], [place] [address] Sep, [facility] [address] [id number] [address] [place] [address], [place] [address] Sep, [facility] [address] [id number] [address] [place] [address], [place] [address] Sep, [facility] [address] [id number] [address] [place] [address], [place] [address] Sep, [facility] [address] [id number] [address] [place] [address], [place] [address] 14 Sep, 2013 [facility] [address] [id number] [address] [place] [address], [place] [address] 14 Sep, 2013 [facility] [address] [id number] [address] [place] [address], [place] [address] 14 Sep, 2013 [facility] [address] [id number] [address] [place] [address], [place] [address] Sep, [facility] [address] [id number] [address] [place] [address], [place] [address] Sep, [facility] [address] [id number] [address] [place] [address], [place] [address] Sep, [facility] [address] [id number] [address] [place] [address], [place] [address] Aug, [facility] [address] [id number] [address] [place] [address], [place] [address] Aug, [facility] [address] [id number] [address] [place] [address], [place] [address] Jul, [facility] [address] [id number] [address] [place] [address], [place] [address] Jul, [facility] [address] [id number] [address] [place] [address], [place] [address] Jul, [facility] [address] [id number] [address] [place] [address], [place] [address] Jul, [facility] [address] [id number] [address] [place] [address], [place] [address] Jul, [facility] [address] [id number] [address] [place] [address], [place] [address] Jul, [facility] [address] [id number] [address] [place] [address], [place] [address] Jul, [facility] [address] [id number] [address] [place] [address], [place] [address] 12 Jul, 2013 [facility] [address] [id number] [address] [place] [address], [place] [address] 08 Jul, 2013 [facility] [address] [id number] [address] [place] [address], [place] [address] 08 Jul, 2013 [facility] [address] [id number] [address] [place] [address], [place] [address] Jul, 2012 [facility] [address] [id number] [address] [place] [address], [place] [address] Jul, 2012 [facility] [address] [id number] [address] [place] [address], [place] [address] Jul, 2012 [facility] [address] [id number] [address] [place] [address], [place] [address] Jul, [facility] [address] [id number] [address] [place] [address], [place] [address] Jul, [facility] [address] [id number] [address] [place] [address], [place] [address] Jul, [facility] [address] [id number] [address] [place] [address], [place] [address] Jul, [facility] [address] [id number] [address] [place] [address], [place] [address] Jul, [facility] [address] [id number] [address] [place] [address], [place] [address] Jul, [facility] [address] [id number] [address] [place] [address] Jun, [facility] [address] [id number] [address] [place] [address], [place] [address] Jun, [facility] [address] [id number] [address] [place] [address], [place] [address] Jun, [facility] [address] [id number] [address] [place] [address] Jun, [facility] [address] [id number] [address] [place] [address], [place] [address] 16 Jun, 2012 [facility] [address] [id number] [address] [place] [address], [place] [address] 16 Jun, 2012 [facility] [address] [id number] [address] [place] [address], [place] [address] 10 Jun, 2012 [facility] [address] [id number] [address] [place] [address], [place] [address] 10 Jun, 2012 [facility] [address] [id number] [address] [place] [address], [place] [address] Jun, [facility] [address] [id number] [address] [place] [address], [place] [address] Jun, [facility] [address] [id number] [address] [place] [address], [place] [address] Jun, [facility] [address] [id number] [address] [place] [address], [place] [address] 26 May, 2012 [facility] [address] [id number] [address] [place] [address], [place] [address] 25 Sep, 2012 [facility] [address] [id number] [address] [place] [address], [place] [address] 19 Sep, 2012 [facility] [address] [id number] [address] [place] [address], [place] [address] 17 Sep, 2012 [facility] [address] [id number] [address] [place] [address], [place] [address] 11 Sep, 2012 [facility] [address] [id number] [address] [place] [address], [place] [address] 10 Sep, 2012 [facility] [address] [id number] [address] [place] [address], [place] [address] 09 Sep, 2012 [facility] [address] [id number] [address] [place] [address], [place] [address] 05 Sep, 2012 [facility] [address] [id number] [address] [place] [address], [place] [address] Apr, [facility] [address] [id number] [address] [place] [address], [place] [address] Apr, [facility] [address] [id number] [address] [place] [address], [place] [address] Apr, [facility] [address] [id number] [address] [place] [address], [place] [address] Apr, [facility] [address] [id number] [address] [place] [address], [place] [address] Apr, [facility] [address] [id number] [address] [place] [address], [place] [address] Mar, [facility] [address] [id number] [address] [place] [address], [place] [address] Mar, [facility] [address] [id number] [address] [place] [address], [place] [address] Mar, [facility] [address] [id number] [address] [place] [address], [place] [address] Mar, [facility] [address] [id number] [address] [place] [address], [place] [address] Mar, [facility] [address] [id number] [address] [place] [address], [place] [address] Mar, [facility] [address] [id number] [address] [place] [address], [place] [address] Mar, [facility] [address] [id number] [address] [place] [address], [place] [address] Mar, [facility] [address] [id number] [address] [place] [address], [place] [address] Feb, [facility] [address] [id number] [address] [place] [address], [place] [address] Feb, [facility] [address] [id number] [address] [place] [address], [place] [address] January, [facility] [address] [id number] [address] [place] [address], [place] [address] January, [facility] [address] [id number] [address] [place] [address], [place] [address] Dec, [facility] [address] [id number] [address] [place] [address], [place] [address] Dec, [facility] [address] [id number] [address] [place] [address], [place] [address] Nov, [facility] [address] [id number] [address] [place] [address], [place] [address] Nov, [facility] [address] [id number] [address] [place] [address], [place] [address] Nov, [facility] [address] [id number] [address] [place] [address], [place] [address] Nov, [facility] [address] [id number] [address] [place] [address], [place] [address] Oct, [facility] [address] [id number] [address] [place] [address], [place] [address] Oct, [facility] [address] [id number] [address] [place] [address], [place] [address] Oct, [facility] [address] [id number] [address] [place] [address], [place] [address] 26 Oct, 2012 [facility] [address] [id number] [address] [place] [address], [place] [address] 16 Oct, 2012 [facility] [address] [id number] [address] [place] [address], [place] [address] 14 Oct, 2012 [facility] [address] [id number] [address] [place] [address], [place] [address] 08 Oct, 2012 [facility] [address] [id number] [address] [place] [address], [place] [address] 07 Oct, 2012 [facility] [address] [id number] [address] [place] [address], [place] [address] Oct, [facility] [address] [id number] [address] [place] [address], [place] [address] Sep, [facility] [address] [id number] [address] [place] [address], [place] [address] Sep, [facility] [address] [id number] [address] [place] [address], [place] [address] Sep, [facility] [address] [id number] [address] [place] [address], [place] [address] Sep, [facility] [address] [id number] [address] [place] [address], [place] [address] Sep, [facility] [address] [id number] [address] [place] [address], [place] [address] Sep, [facility] [address] [id number] [address] [place] [address], [place] [address] Sep, [facility] [address] [id number] [address] [place] [address], [place] [address] Sep, [facility] [address] [id number] [address] [place] [address], [place] [address] Aug, [facility] [address] [id number] [address] [place] [address], [place] [address] Aug, [facility] [address] [id number] [address] [place] [address], [place] [address] Aug, [facility] [address] [id number] [address] [place] [address], [place] [address] Aug, [facility] [address] [id number] [address] [place] [address], [place] [address] Aug, [facility] [address] [id number] [address] [place] [address], [place] [address] Aug, [facility] [address] [id number] [address] [place] [address], [place] [address] 18 Aug, 2012 [facility] [address] [id number] [address] [place] [address], [place] [address] Aug, [facility] [address] [id number] [address] [place] [address], [place] [address] Jul, [facility] [address] [id number] [address] [place] [address], [place] [address] Jul, [facility] [address] [id number] [address] [place] [address], [place] [address] Jul, [facility] [address] [id number] [address] [place] [address], [place] [address] Jul, [facility] [address] [id number] [address] [place] [address], [place] [address] Jul, [facility] [address] [id number] [address] [place] [address], [place] [address] Jul, [facility] [address] [id number] [address] [place] [address], [place] [address] Jun, [facility] [address] [id number] [address] [place] [address], [place] [address] Jun, [facility] [address] [id number] [address] [place] [address], [place] [address] Jun, [facility] [address] [id number] [address] [place] [address], [place] [address] Jun, [facility] [address] [id number] [address] [place] [address], [place] [address] Jun, [facility] [address] [id number] [address] [place] [address], [place] [address] Jun, [facility] [address] [id number] [address] [place] [address], [place] [address] Jun, [facility] [address] [id number] [address] [place] [address], [place] [address] Jun, [facility] [address] [id number] [address] [place] [address], [place] [address] Jun, [facility] [address] [id number] [address] [place] [address], [place] [address] 26 May, 2012 [facility] [address] [id number] [address] [place] [address], [place] [address] 24 May, 2012 [facility] [address] [id number] [address] [place] [address], [place] [address] May, [facility] [address] [id number] [address] [place] [address], [place] [address] Apr, [facility] [address] [id number] [address] [place] [address], [place] [address] Apr, [facility] [address] [id number] [address] [place] [address], [place] [address] Apr, [facility] [address] [id number] [address] [place] [address], [place] [address] Apr, [facility] [address] [id number] [address] [place] [address], [place] [address] Apr, [facility] [address] [id number] [address] [place] [address], [place] [address] Apr, [facility] [address] [id number] [address] [place] [address], [place] [address] Mar, [facility] [address] [id number] [address] [place] [address], [place] [address] Mar, [facility] [address] [id number] [address] [place] [address], [place] [address] Mar, [facility] [address] [id number] [address] [place] [address], [place] [address] Mar, [facility] [address] [id number] [address] [place] [address], [place] [address] Feb, [facility] [address] [id number] [address] [place] [address], [place] [address] Feb, [facility] [address] [id number] [address] [place] [address], [place] [address] Feb, [facility] [address] [id number] [address] [place] [address], [place] [address] Feb, [facility] [address] [id number] [address] [place] [address], [place] [address] Feb, [facility] [address] [id number] [address] [place] [address], [place] [address] January, [facility] [address] [id number] [address] [place] [address], [place] [address] January, [facility] [address] [id number] [address] [place] [address], [place] [address] January, [facility] [address] [id number] [address] [place] [address], [place] [address] January, [facility] [address] [id number] [address] [place] [address], [place] [address] January, [facility] [address] [id number] [address] [place] [address], [place] [address] January, [facility] [address] [id number] [address] [place] [address], [place] [address] Dec, [facility] [address] [id number] [address] [place] [address], [place] [address] Dec, [facility] [address] [id number] [address] [place] [address], [place] [address] Dec, [facility] [address] [id number] [address] [place] [address], [place] [address] Dec, [facility] [address] [id number] [address] [place] [address], [place] [address] Dec, [facility] [address] [id number] [address] [place] [address], [place] [address] Nov, [facility] [address] [id number] [address] [place] [address], [place] [address] 14 Nov, 2011 [facility] [address] [id number] [address] [place] [address], [place] [address] Nov, [facility] [address] [id number] [address] [place] [address], [place] [address] Nov, [facility] [address] [id number] [address] [place] [address], [place] [address] 29 Oct, 2011 [facility] [address] [id number] [address] [place] [address], [place] [address] 28 Oct, 2011 [facility] [address] [id number] [address] [place] [address], [place] [address] 24 Oct, 2011 [facility] [address] [id number] [address] [place] [address], [place] [address] 13 Oct, 2011 [facility] [address] [id number] [address] [place] [address], [place] [address] Oct, [facility] [address] [id number] [address] [place] [address], [place] [address] Sep, [facility] [address] [id number] [address] [place] [address], [place] [address] Sep, [facility] [address] [id number] [address] [place] [address], [place] [address] Sep, [facility] [address] [id number] [address] [place] [address], [place] [address] Sep, [facility] [address] [id number] [address] [place] [address], [place] [address] Sep, [facility] [address] [id number] [address] [place] [address], [place] [address] Sep, [facility] [address] [id number] [address] [place] [address], [place] [address] Aug, [facility] [address] [id number] [address] [place] [address], [place] [address] Aug, [facility] [address] [id number] [address] [place] [address], [place] [address] Aug, [facility] [address] [id number] [address] [place] [address], [place] [address] Jul, [facility] [address] [id number] [address] [place] [address], [place] [address] Jul, [facility] [address] [id number] [address] [place] [address], [place] [address] Jul, [facility] [address] [id number] [address] [place] [address], [place] [address] Jul, [facility] [address] [id number] [address] [place] [address], [place] [address] Jun, [facility] [address] [id number] [address] [place] [address], [place] [address] Jun, [facility] [address] [id number] [address] [place] [address], [place] [address] Jun, [facility] [address] [id number] [address] [place] [address], [place] [address] Jun, [facility] [address] [id number] [address] [place] [address], [place] [address] Jun, [facility] [address] [id number] [address] [place] [address], [place] [address] Jun, [facility] [address] [id number] [address] [place] [address] Mar, [facility] [address] [id number] [address] [place] [address] Dec, [facility] [address] [id number] [address] [place] [address], [place] [address] Dec, [facility] [address] [id number] [address] [place] [address], [place] [address] Nov, [facility] [address] [id number] [address] [place] [address], [place] [address] 16 Nov, 2010 [facility] [address] [id number] [address] [place] [address], [place] [address] 10 Sep, 2010 [facility] [address] [id number] [address] [place] [address], [place] [address] 31 Aug, 2010 [facility] [address] [id number] [address] [place] [address], [place] [address] 29 Aug, 2010 [facility] [address] [id number] [address] [place] [address], [place] [address] 29 Aug, 2010 [facility] [address] [id number] [address] [place] [address], [place] [address] 29 Aug, 2010 [facility] [address] [id number] [address] [place] [address], [place] [address] 27 Aug, 2010 [facility] [address] [id number] [address] [place] [address], [place] [address] 14 Aug, 2010 [facility] [address] [id number] [address] [place] [address], [place] [address] 08 Aug, 2010 [facility] [address] [id number] [address] [place] [address], [place] [address] 08 Aug, 2010 [facility] [address] [id number] [address] [place] [address], [place] [address] 07 Aug, 2010 [facility] [address] [id number] [address] [place] [address], [place] [address] 06 Aug, 2010 [facility] [address] [id number] [address] [place] [address], [place] [address] Aug, [facility] [address] [id number] [address] [place] [address], [place] [address] Aug, [facility] [address] [id number] [address] [place] [address], [place] [address] Jul, [facility] [address] [id number] [address] [place] [address], [place] [address] Jul, [facility] [address] [id number] [address] [place] [address], [place] [address] Jul, [facility] [address] [id number] [address] [place] [address], [place] [address] 17 Jul, 2010 [facility] [address] [id number] [address] [place] [address], [place] [address] 08 Jul, 2010 [facility] [address] [id number] [address] [place] [address], [place] [address] Jul, [facility] [address] [id number] [address] [place] [address], [place] [address] 24 Jun, 2010 [facility] [address] [id number] [address] [place] [address], [place] [address] Jun, [facility] [address] [id number] [address] [place] [address], [place] [address] Jun, [facility] [address] [id number] [address] [place] [address], [place] [address] Jun, [facility] [address] [id number] [address] [place] [address] Apr, [facility] [address] [id number] [address] [place] [address], [place] [address] Mar, [facility] [address] [id number] [address] [place] [address] Feb, [facility] [address] [id number] [address] [place] [address] January, [facility] [address] [id number] [address] [place] [address] 15 Dec, 2009 [facility] [address] [id number] [address] [place] [address] Nov, [facility] [address] [id number] [address] [place] [address] Aug, [facility] [address] [id number] [address] [place] [address] Aug, [facility] [address] [id number] [address] [place] [address] Aug, [facility] [address] [id number] [address] [place] [address] Jul, [facility] [address] [id number] [address] [place] [address] Jul, [facility] [address] [id number] [address] [place] [address] Jul, [facility] [address] [id number] [address] [place] [address] Jun, [facility] [address] [id number] [address] [place] [address] Jun, [facility] [address] [id number] [address] [place] [address] Jun, [facility] [address] [id number] [address] [place] [address] Jun, [facility] [address] [id number] [address] [place] [address] Jun, [facility] [address] [id number] [address] [place] [address] Jun, [facility] [address] [id number] [address] [place] [address] Apr, [facility] [address] [id number] [address] [place] [address] Apr, [facility] [address] [id number] [address] [place] [address] Feb, [facility] [address] [id number] [address] [place] [address] January, [facility] [address] [id number] [address] [place] [address] Dec, IMMUNIZATIONS No Known Immunizations SOCIAL HISTORY Never Assessed REASON FOR VISIT PLAN OF CARE VITAL SIGNS Height 67 in 2013-07-30 Weight 334 lbs 2013-07-30 Temperature 98 degrees Fahrenheit 2013-07-30 Heart Rate 82 bpm 2013-07-30 Respiratory Rate 18 2013-07-30 Blood pressure systolic 140 mmHg 2013-07-30 Blood pressure diastolic 84 mmHg 2013-07-30 MEDICATIONS Unknown Medications RESULTS No Results PROCEDURES Procedure Date Ordered Result Body Site COMPLETE CBC W/AUTO DIFF WBC Jul 30, 2013 ASSAY THYROID STIM HORMONE Jul 30, 2013 GLYCATED HEMOGLOBIN TEST Jul 30, 2013 LIPID PANEL Jul 30, 2013 COMPREHEN METABOLIC PANEL Jul 30, 2013 URINALYSIS, AUTO, W/O SCOPE Jul 30, 2013 VENIPUNCT, ROUTINE* Jul 30, 2013 INSTRUCTIONS MEDICATIONS ADMINISTERED No Known Medications [...] release (Left) 2000 Surgical History EGD ([facility]) 2009 Surgical History colonoscopy 2009 ([facility]), 2013 ([facility] ) Surgical History heart cath: CAD w/ [...] 10/2018 Surgical History left carotid stenting 02/2020 Hospitalization History [facility] low potassium, low magne sium, chest painina 01/2015 Hospitalization History inability to urinate 09/16/15 Hospitalization History [facility] e[facility]ly 2000's Hospitalization History hyperkalemia 10/2017 Hospitalization History fluid in lung
--- OUTSIDE RECORDS SUMMARY | 2020-04-11 11:09 | XMS REPORT ---
Author Author Michele WASHBURN Organization [facility] Address [address] [place] [address] Care Team Providers [employer] Manufacturer Name Role Phone NOEMI WASHBURN Unavailable PROBLEMS Type Condition ICD9-CM Code [id number] Code Onset Dates Condition S tatus SNOMED Code Problem Bipolar I disorder, most recent episode (or curr ent) mixed, moderate F31.62 Active 43879887 Problem Anxiety F41.9 Active 85941021 Problem Insomnia, unspecified type G47.00 Act sharon 621116806 Problem Essential hypertension I10 Active 22866217 Problem Morbid obesity E66.01 Active 34670 6002 Problem Polyneuropathy associated with underlying disease G63 Active 805257147 Problem Diabetic polyneuropathy associated with type 2 d iabetes mellitus E11.42 Active 21439573 Problem Chronic diastolic (congestive) heart failure I50.3 2 Active 042761100 Problem Diabetes E11.9 Active 96922846 Problem Bipolar disorder F31.9 Active 137 51133 Problem Chronic pain G89.29 Active 2086779 1 Problem Reactive airway disease J45.909 Active 847740177912 Problem Leukocytosis D72.829 Active 6931695 06 Problem Falling R29.6 Active 756491576 Problem 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 Active 488243934 Problem Pure hypercholesterolemia E78.00 Acti ve 810479599 Problem Dysuria R30.0 Active 34695870 Problem Bipolar disorder, in partial remission, most rec ent episode depressed F31.75 Active 06859796 Problem Hypokalemia E87.6 Active 83909696 Problem Other iron deficiency anemia D50.8 A ctive 66664388 Problem Eustachian tube dysfunction, unspecified laterality H69.80 Active 44340053 Problem Primary osteoarthritis of right knee M17.11 Active 967932179111216 Problem Cough R05 Active 26263524 Problem Skin cancer C44.90 Active 22366587 7 Problem DM neuro manif type II E11.49 Active 61975191 Problem Mild cognitive impairment G31.84 Acti ve 708483771 Problem Benign prostatic hyperplasia with lower urinary tract symptoms, unspecified morphology N40.1 Active 19084 6007 Problem Psychophysiological insomnia F51.04 A ctive 912036494 Problem Type 2 diabetes mellitus with diabetic neuropathy, uns pecified E11.40 Active 25529158 Problem 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 (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 Z79.4 Active 045546096 Problem PVD (peripheral vascular disease) I73.9 Active 695337977 Problem Retinal edema H35.81 Active 101435 6 Problem Chronic lymphocytic leukemia C91.10 A ctive 52192617 Problem Agitation R45.1 Active 554863556 Problem Bilateral primary osteoarthritis of knee M17.0 Active 515849832 Problem Eye exam abnormal R93.8 Active 16 7900309 Problem Anemia of chronic illness D63.8 Acti ve 812852390 Problem Lymphocytosis D72.820 Active 551998 09 Problem Mood disorder F39 Active 378110 05 Problem Bipolar I disorder, most recent episode depressed, moderat e F31.32 Active 349312089 Problem Pressure ulcer of other site, stage 3 L89.893 Active 242096504 Problem Gastroesophageal reflux disease without esophagitis K21.9 Active 181655005 Problem Other secondary acute gout, 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 0 Active 701368293 ALLERGIES No Information ENCOUNTERS Encounter Location Date Diagnosis [place] [address] [facility] [id number] [address] [place] [phone] Mar, [facility] [address] [facility] [id number] [address] [place] [id number] 15 Mar, 2020 [facility] [address] [facility] [id number] [address] [place] [id number] Mar, [facility] [address] [facility] [id number] [address] [place] [phone] Mar, [facility] [address] [facility] [id number] [address] [place] [id number] Mar, [facility] [address] [facility] [id number] [address] [place] [id number] Feb, Bipolar I disorder, most rec ent episode depressed, moderate F31.32 ; Anxiety F41.9 and Mild cognitive impairment G31.84 [facility] [address] [id number] [address] [place] [phone] 24 Feb, 2020 [facility] [address] [facility] [id number] [address] [place] [id number] 24 Feb, 2020 Gastroesophageal reflux dise ase without esophagitis K21.9 [facility] [address] [facility] [id number] [address] [place] [phone] 23 Feb, 2020 [place] [address] [facility] [id number] [address] [place] [phone] 18 Feb, 2020 Bipolar I disorder, most rec ent episode depressed, moderate F31.32 ; Anxiety F41.9 and Mild cognitive impairment G31.84 [place] [address] [facility] [id number] [address] [place] [phone] 17 Feb, 2020 Chronic pain G89.29 [place] [address] [facility] [id number] [address] [place] [phone] Feb, Agitation R45.1 [place] [address] [facility] [id number] [address] [place] [id number] 17 Feb, 2020 PVD (peripheral vascular dis ease) I73.9 ; Status post CVA Z86.73 ; Status post carotid endarterectomy Z98.890 ; Vertigo R42 ; Mild cognitive impairment G31.84 ; Type 2 diabetes mellitus with diabetic neuropathy, unspecified E11.40 and Essential hypertension I10 [place] [address] [facility] [id number] [address] [place] [phone] Feb, [place] [address] [facility] [id number] [address] [place] [phone] Feb, [place] [address] [facility] [id number] [address] [place] [id number] January, [place] [address] [facility] [id number] [address] [place] [phone] January, Chronic pain G89.29 [place] [address] [place] [id number] [address] [place] [phone] 27 Dec, 2019 [facility] [address] [facility] [id number] [address] [place] [id number] 17 Dec, 2019 Chronic pain G89.29 [facility] [address] [id number] [address] [place] [id number] 13 Dec, 2019 [facility] [address] [facility] [id number] [address] [place] [phone] Dec, [facility] [address] [id number] [address] [place] [id number] 07 Dec, 2019 Gastroesophageal reflux dise ase without esophagitis K21.9 and Pure hypercholesterolemia E78.00 [facility] [address] [facility] [id number] [address] [place] [phone] Dec, Mood disorder F39 [place] [address] [facility] [id number] [place] [phone] Nov, Other secondary acute gout, 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 [facility] [address] [facility] [id number] [address] [place] [phone] Nov, Gastroesophageal reflux dise ase without esophagitis K21.9 [facility] [address] [facility] [id number] [address] [place] [id number] Nov, Chronic pain G89.29 [facility] [address] [facility] [id number] [address] [place] [phone] Nov, Bipolar I disorder, most rec ent episode depressed, moderate F31.32 ; Anxiety F41.9 and Mild cognitive impairment G31.84 [facility] [address] [facility] [id number] [address] [place] [phone] Nov, [facility] [address] [facility] [id number] [address] [place] [phone] 04 Nov, 2019 Syncope, unspecified syncope type R55 [facility] [address] [facility] [id number] [address] [place] [phone] Nov, Mood disorder F39 [facility] [address] [id number] [address] [place] [id number] Oct, Chronic pain G89.29 [facility] [address] [id number] [address] [place] [phone] Oct, [facility] [address] [id number] [address] [place] [id number] Oct, Mood disorder F39 [facility] [address] [id number] [address] [place] [phone] Oct, [facility] [address] [id number] [address] [place] [id number] Oct, Bipolar disorder, in partial remission, most recent episode depressed F31.75 and Mild cognitive impairment G31.84 [facility] [address] [id number] [address] [place] [phone] Oct, Mood disorder F39 [facility] [address] [id number] [address] [place] [phone] Sep, [facility] [address] [id number] [address] [place] [phone] Sep, Mood disorder F39 [facility] [address] [id number] [address] [place] [id number] Sep, Bipolar disorder, in partial remission, most recent episode depressed F31.75 and Mild cognitive impairment G31.84 [facility] [address] [id number] [address] [place] [phone] Sep, Mood disorder F39 [facility] [address] [id number] [address] [place] [id number] Sep, [facility] [address] [id number] [address] [place] [phone] Sep, Mood disorder F39 [facility] [address] [id number] [address] [place] [phone] Sep, [facility] [address] [id number] [address] [place] [address], [place] [phone] Aug, Mood disorder F39 [facility] [address] [id number] [address] [place] [address], [place] [phone] Aug, [facility] [address] [id number] [address] [place] [address], [place] [phone] Aug, [facility] [address] [id number] [address] [place] [address], [place] [phone] Aug, [facility] [address] [id number] [address] [place] [address], [place] [phone] Aug, [facility] [address] [id number] [address] [place] [address], [place] [phone] Aug, [facility] [address] [id number] [address] [place] [address], [place] [address] Aug, [facility] [address] [id number] [address] [place] [address], [place] [address] Aug, [facility] [address] [id number] [address] [place] [address], [place] [address] Aug, Essential hypertension I10 [facility] [address] [id number] [address] [place] [phone] Aug, Bipolar disorder, in partial remission, most recent episode depressed F31.75 and Mild cognitive impairment G31.84 [facility] [address] [id number] [address] [place] [id number] Aug, Mood disorder F39 [facility] [address] [id number] [address] [place] [address], [place] [address] Aug, [facility] [address] [id number] [address] [place] [phone] Aug, Bipolar disorder, in partial remission, most recent episode depressed F31.75 and Mild cognitive impairment G31.84 [facility] [address] [id number] [address] [place] [phone] Jul, Bipolar disorder, in partial remission, most recent episode depressed F31.75 and Mild cognitive impairment G31.84 [facility] [address] [id number] [address] [place] [id number] Jul, Psychophysiological insomnia F51.04 [facility] [address] [id number] [address] [place] [phone] Jul, [facility] [address] [id number] [address] [place] [phone] Jul, [facility] [address] [id number] [address] [place] [id number] Jul, [facility] [address] [id number] [address] [place] [id number] Jul, [facility] [address] [id number] [address] [place] [phone] Jul, [facility] [address] [id number] [address] [place] [id number] Jul, [facility] [address] [id number] [address] [place] [phone] Jul, Bipolar disorder, in partial remission, most recent episode depressed F31.75 and Mild cognitive impairment G31.84 [facility] [address] [id number] [address] [place] [id number] Jul, Chronic pain G89.29 ; Diabet es E11.9 ; Essential hypertension I10 ; Ill feeling R68.89 ; Local infection of the skin and subcutaneous tissue, unspecified L08.9 and Other injury of unspecified body region, initial encounter T14.8XXA [facility] [address] [id number] [address] [place] [id number] Jun, Bipolar disorder, in partial remission, most recent episode depressed F31.75 and Mild cognitive impairment G31.84 [facility] [address] [id number] [address] [place] [id number] Jun, [facility] [address] [facility] [id number] [address] [place] [phone] Jun, Bipolar disorder, in partial remission, most recent episode depressed F31.75 and Mild cognitive impairment G31.84 [facility] [address] [facility] [id number] [address] [place] [id number] Jun, Psychophysiological insomnia F51.04 [facility] [address] [id number] [address] [place] [id number] Jun, Psychophysiological insomnia F51.04 ; Chronic pain G89.29 ; Bipolar I disorder, most recent episode (or current) mixed, moderate F31.62 ; 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 ; Polyneuropathy associated with underlying disease G63 ; Type 2 diabetes mellitus with diabetic neuropathy, unspecified E11.40 ; 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 (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 Z79.4 and Hyperglycemia R73.9 [place] [address] [facility] [id number] [address] [place] [id number] Jun, Bipolar disorder, in partial remission, most recent episode depressed F31.75 and Mild cognitive impairment G31.84 [facility] [address] [facility] [id number] [address] [place] [phone] Jun, [place] [address] [facility] [id number] [address] [place] [phone] Jun, Bipolar disorder F31.9 [facility] [address] [id number] [address] [place] [id number] May, Bipolar disorder, in partial remission, most recent episode depressed F31.75 and Mild cognitive impairment G31.84 [facility] [address] [id number] [address] [place] [id number] May, [facility] [address] [facility] [id number] [address] [place] [phone] Apr, Chronic pain G89.29 and Bipo lar disorder F31.9 [facility] [address] [id number] [address] [place] [id number] Mar, Bipolar disorder F31.9 and C hronic pain G89.29 [facility] [address] [id number] [address] [place] [phone] Feb, Bipolar disorder F31.9 [facility] [address] [id number] [address] [place] [phone] Feb, Cellulitis of right upper ex tremity L03.113 and Skin abrasion T14.8XXA [facility] [address] [id number] [address] [place] [phone] Feb, Bipolar disorder, in partial remission, most recent episode depressed F31.75 and Mild cognitive impairment G31.84 [facility] [address] [id number] [address] [place] [address] Feb, Chronic pain G89.29 [facility] [address] [id number] [address] [place] [id number] Feb, Bipolar disorder, in partial remission, most recent episode depressed F31.75 and Mild cognitive impairment G31.84 [facility] [address] [id number] [address] [place] [id number] January, Bipolar disorder, in partial remission, most recent episode depressed F31.75 and Mild cognitive impairment G31.84 [facility] [address] [id number] [address] [place] [id number] January, Chronic pain G89.29 and Bipo lar disorder F31.9 [facility] [address] [id number] [address] [place] [id number] January, Bipolar disorder, in partial remission, most recent episode depressed F31.75 and Mild cognitive impairment G31.84 [facility] [address] [id number] [address] [place] [id number] Dec, [facility] [address] [id number] [address] [place] [id number] Dec, Chronic pain G89.29 and Bipo lar disorder F31.9 [facility] [address] [facility] [id number] [address] [place] [id number] 17 Dec, 2018 Edema of both lower extremit ies R60.0 [facility] [address] [facility] [id number] [address] [place] [phone] 15 Dec, 2018 Bipolar disorder F31.9 [facility] [address] [facility] [id number] [address] [place] [phone] 08 Dec, 2018 Bipolar disorder, in partial remission, most recent episode depressed F31.75 and Mild cognitive impairment G31.84 [facility] [address] [facility] [id number] [address] [place] [phone] Nov, [place] [address] [facility] [id number] [address] [place] [phone] Nov, Chronic pain G89.29 [place] [address] [place] [id number] [address] [place] [id number] Nov, Bipolar disorder, in partial remission, most recent episode depressed F31.75 and Mild cognitive impairment G31.84 [facility] [address] [facility] [id number] [address] [place] [phone] Nov, Bipolar disorder F31.9 [place] [address] [facility] [id number] [address] [place] [phone] 04 Nov, 2018 Encounter for Medicare annua [...] unspecified morphology N40.1 and Essential hypertension I10 [facility] [address] [facility] [id number] [address] [place] [phone] Oct, Chronic pain G89.29 [place] [address] [place] [id number] [place] [phone] Oct, Diabetes E11.9 [place] [id number] [place] [phone] Oct, Bipolar I disorder, most rec ent episode (or current) mixed, moderate F31.62 and Mild cognitive impairment G31.[address] [phone] Oct, Bipolar I disorder, most rec ent episode (or current) mixed, moderate F31.62 and Mild cognitive impairment G31.[address] [id number] Sep, Bipolar I disorder, most rec ent episode (or current) mixed, moderate F31.62 and Mild cognitive impairment G31.[address] [address] Sep, [address] [address] Sep, Diabetes E11.9 ; Hypoxia R09 .02 ; Hyperglycemia R73.9 ; Therapeutic drug monitoring Z51.81 ; BMI 50.0-59.9, adult Z68.43 and Skin cancer C44.90 [place] [id number] [place] [phone] Sep, Chronic pain G89.[address] [address] Sep, Bipolar I disorder, most rec ent episode (or current) mixed, moderate F31.[address] [phone] Sep, [place] [address] [place] [id number] [place] [phone] Sep, [address] [address] Aug, Chronic pain G89.29 [facility] [address] [id number] [address] [place] [id number] Aug, Bipolar I disorder, most rec ent episode (or current) mixed, moderate F31.62 [facility] [address] [id number] [address] [place] [phone] Aug, Bipolar I disorder, most rec ent episode (or current) mixed, moderate F31.62 and Mild cognitive impairment G31.84 [facility] [address] [id number] [address] [place] [id number] Jul, [facility] [address] [id number] [address] [place] [id number] Jul, Chronic pain G89.29 [facility] [address] [id number] [address] [place] [id number] Jul, Bipolar I disorder, most rec ent episode (or current) mixed, moderate F31.62 and Mild cognitive impairment G31.84 [facility] [address] [id number] [address] [place] [phone] Jul, Bipolar I disorder, most rec ent episode (or current) mixed, moderate F31.62 and MCI (mild cognitive impairment) G31.84 [facility] [address] [id number] [address] [place] [id number] Jul, [facility] [address] [id number] [address] [place] [id number] Jul, [facility] [address] [id number] [address] [place] [phone] Jul, Bipolar I disorder, most rec ent episode (or current) mixed, moderate F31.62 [facility] [address] [id number] [address] [place] [id number] Jul, Chronic pain G89.29 [facility] [address] [id number] [address] [place] [id number] Jun, Bipolar I disorder, most rec ent episode (or current) mixed, moderate F31.62 [facility] [address] [id number] [address] [place] [id number] Jun, Pre-procedure lab exam Z01.8 12 [facility] [address] [id number] [address] [place] [id number] Jun, [facility] [address] [id number] [place] [id number] Jun, [facility] [address] [facility] [id number] [address] [place] [phone] Jun, [place] [address] [facility] [id number] [address] [place] [address] Jun, Forgetfulness R68.89 ; Pre-s yncope R55 ; Localized edema R60.0 ; Other iron deficiency anemia D50.8 and BMI 50.0-59.9, adult Z68.43 [facility] [address] [facility] [id number] [address] [place] [id number] Jun, Chronic pain G89.29 [facility] [address] [facility] [id number] [address] [place] [id number] Jun, Chronic pain G89.29 [facility] [address] [facility] [id number] [address] [place] [id number] Jun, Bipolar I disorder, most rec ent episode (or current) mixed, moderate F31.62 [facility] [address] [facility] [id number] [address] [place] [id number] May, Chronic pain G89.29 [facility] [address] [facility] [id number] [address] [place] [id number] Apr, [facility] [address] [facility] [id number] [address] [place] [id number] Apr, Chronic pain G89.29 [facility] [address] [facility] [id number] [address] [place] [phone] Apr, Primary osteoarthritis of ri ght knee M17.11 [place] [address] [place] [id number] [address] [place] [phone] Mar, [place] [address] [address] Mar, BMI 50.0-59.9, adult Z68.43 and Bipolar disorder, in partial remission, most recent episode depressed F31.75 [place] [address] [address] Mar, Diabetes E11.9 ; Pure hyperc holesterolemia E78.00 ; Essential hypertension I10 ; Nausea with vomiting, unspecified R11.2 and Headache, unspecified headache type R51 [place] [address] [address] Mar, Bipolar I disorder, most rec ent episode (or current) mixed, moderate F31.62 [place] [address] [address] Mar, Bipolar I disorder, most rec ent episode (or current) mixed, moderate F31.62 [place] [address] [address] Mar, Chronic pain G89.29 [place] [address] [address] 02 Mar, 2018 Bipolar I disorder, most rec ent episode (or current) mixed, moderate F31.62 [place] [address] [address] 18 Feb, 2018 Bipolar I disorder, most rec ent episode (or current) mixed, moderate F31.62 [place] [address] [address] 14 Feb, 2018 Chronic pain G89.29 [place] [address] [address] 06 Feb, 2018 Decubitus ulcer of right josselin t, stage 3 L89.893 and BMI 50.0-59.9, adult Z68.43 [place] [address] [place] [id number] [address] [place] [phone] Feb, Bipolar I disorder, most rec ent episode (or current) mixed, moderate F31.62 [place] [address] [place] [id number] [place] [phone] Feb, [place] [address] [place] [id number] [place] [address] January, [place] [address] [place] [id number] [place] [phone] January, Chronic pain G89.29 [place] [address] [place] [id number] [place] [address] January, Bipolar I disorder, most rec ent episode (or current) mixed, moderate F31.62 [place] [address] [address] January, Bipolar I disorder, most rec ent episode (or current) mixed, moderate F31.62 [place] [address] [place] [id number] [place] [phone] Dec, Bipolar I disorder, most rec ent episode (or current) mixed, moderate F31.62 and BMI 50.0-59.9, adult Z68.43 [place] [address] [place] [id number] [place] [phone] Dec, Bipolar I disorder, most rec ent episode (or current) mixed, moderate F31.62 [place] [address] [place] [id number] [address] [place] [phone] Dec, Chronic pain G89.29 [place] [address] [place] [id number] [place] [address] Dec, DM neuro manif type II E11.4 9 ; Right flank pain R10.9 ; 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 current use of opiate analgesic Z79.891 ; Encounter for medication monitoring Z51.81 and BMI 50.0-59.9, adult Z68.43 [facility] [address] [facility] [id number] [address] [place] [id number] Dec, Bipolar I disorder, most rec ent episode (or current) mixed, moderate F31.62 [facility] [address] [facility] [id number] [address] [place] [phone] Nov, Bipolar I disorder, most rec ent episode (or current) mixed, moderate F31.62 [facility] [address] [facility] [id number] [address] [place] [id number] Nov, Chronic pain G89.29 [place] [address] [place] [id number] [address] [place] [phone] Nov, Bipolar I disorder, most rec ent episode (or current) mixed, moderate F31.62 [place] [address] [place] [id number] [address] [place] [phone] Nov, Hypokalemia E87.6 [facility] [address] [facility] [id number] [address] [place] [phone] Nov, Bipolar I disorder, most rec ent episode (or current) mixed, moderate F31.62 [place] [address] [place] [id number] [address] [place] [phone] Oct, Chronic pain G89.29 [facility] [address] [facility] [id number] [address] [place] [phone] Oct, BMI 50.0-59.9, adult Z68.43 and Bipolar I disorder, most recent episode (or current) mixed, moderate F31.62 [place] [address] [facility] [id number] [address] [place] [phone] Oct, Bipolar I disorder, most rec ent episode (or current) mixed, moderate F31.62 [facility] [address] [facility] [id number] [address] [place] [phone] Oct, [facility] [address] [place] [id number] [address] [place], [place] [phone] Oct, Hypokalemia E87.6 [facility] [address] [place] [id number] [address] [place] [phone] Oct, DM neuro manif type II E11.4 9 [facility] [address] [place] [id number] [address] [place] [id number] Oct, Bipolar I disorder, most rec ent episode (or current) mixed, moderate F31.62 [facility] [address] [place] [id number] [place] [id number] Oct, Bipolar I disorder, most rec ent episode (or current) mixed, moderate F31.62 [place] [address] [place] [id number] [place] [id number] 14 Oct, 2017 Hyperkalemia E87.5 ; Falling R29.6 ; BMI 50.0-59.9, adult Z68.43 and Acute left ankle pain M25.572 [place] [address] [place] [id number] [place] [phone] Oct, DM neuro manif type II E11.4 9 [place] [address] [place] [id number] [place] [phone] Oct, [place] [address] [address] Sep, Chronic pain G89.29 [place] [address] [address] Sep, [place] [address] [place] [id number] [place] [phone] Sep, Bilateral primary osteoarthr itis of knee M17.0 [place] [address] [place] [id number] [address] [place] [phone] Sep, Generalized edema R60.1 [place] [address] [address] Sep, Bipolar I disorder, most rec ent episode (or current) mixed, moderate F31.62 [place] [address] [place] [id number] [address] [place] [id number] 15 Sep, 2017 Hypoxia R09.02 ; Other hyper volemia E87.79 ; Diabetes E11.9 ; Retinal edema H35.81 ; Hypokalemia E87.6 ; 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 ; Anemia of chronic illness D63.8 and BMI 50.0- 59.9, adult Z68.43 [place] [address] [place] [id number] [address] [place] [id number] Sep, [place] [address] [place] [id number] [place] [address] Sep, Bipolar I disorder, most rec ent episode (or current) mixed, moderate F31.62 [place] [address] [place] [id number] [address] [place] [phone] Aug, Chronic pain G89.29 [place] [address] [place] [id number] [address] [place] [phone] Aug, Generalized edema R60.1 [place] [address] [place] [id number] [address] [place] [phone] 18 Aug, 2017 [place] [address] [place] [id number] [address] [place] [phone] Aug, [place] [address] [place] [id number] [address] [place] [phone] 14 Aug, 2017 Bipolar I disorder, most rec ent episode (or current) mixed, moderate F31.62 [place] [address] [place] [id number] [address] [place] [id number] 07 Aug, 2017 Bipolar I disorder, most rec ent episode (or current) mixed, moderate F31.62 [place] [address] [place] [id number] [address] [place] [phone] 04 Aug, 2017 Chronic pain G89.29 [place] [address] [place] [id number] [address] [place] [phone] Jul, Bipolar I disorder, most rec ent episode (or current) mixed, moderate F31.62 [facility] [address] [facility] [id number] [address] [place] [phone] Jul, Bipolar I disorder, most rec ent episode (or current) mixed, moderate F31.62 and BMI 60.0-69.9, adult Z68.44 [facility] [address] [place] [id number] [address] [place] [phone] Jul, Bipolar I disorder, most rec ent episode (or current) mixed, moderate F31.62 [place] [address] [place] [id number] [address] [place] [address] Jul, Chronic pain G89.29 [facility] [address] [place] [id number] [address] [place] [phone] Jul, Bipolar I disorder, most rec ent episode (or current) mixed, moderate F31.62 [place] [address] [place] [id number] [address] [place] [phone] Jun, Polyneuropathy associated wi th underlying disease G63 and Diabetes E11.9 [facility] [address] [place] [id number] [address] [place] [id number] Jun, Bipolar I disorder, most rec ent episode (or current) mixed, moderate F31.62 [facility] [address] [place] [id number] [address] [place] [address] Jun, Chronic pain G89.29 [facility] [address] [place] [id number] [address] [place] [id number] May, Bipolar I disorder, most rec ent episode (or current) mixed, moderate F31.62 [facility] [address] [place] [id number] [address] [place] [phone] May, Bipolar I disorder, most rec ent episode (or current) mixed, moderate F31.62 [place] [address] [place] [id number] [address] [place] [id number] 20 May, 2017 Diabetic polyneuropathy asso ciated with type 2 diabetes mellitus E11.42 [facility] [address] [id number] [address] [place] [phone] 18 May, 2017 Bipolar I disorder, most rec ent episode (or current) mixed, moderate F31.62 [facility] [address] [facility] [id number] [address] [place] [phone] 13 May, 2017 Bipolar I disorder, most rec ent episode (or current) mixed, moderate F31.62 [facility] [address] [facility] [id number] [address] [place] [phone] 12 May, 2017 Chronic pain G89.29 [facility] [address] [facility] [id number] [address] [place] [id number] 30 Apr, 2017 Bipolar I disorder, most rec ent episode (or current) mixed, moderate F31.62 [facility] [address] [facility] [id number] [address] [place] [phone] Apr, [facility] [address] [id number] [address] [place] [phone] Apr, Chronic pain G89.29 and DM n euro manif type II E11.49 [facility] [address] [facility] [id number] [address] [place] [phone] Apr, [facility] [address] [id number] [address] [place] [phone] Apr, Bipolar I disorder, most rec ent episode (or current) mixed, moderate F31.62 [facility] [address] [id number] [address] [place] [id number] 14 Apr, 2017 Chronic pain G89.29 [facility] [address] [facility] [id number] [address] [place] [id number] Apr, Iliotibial band syndrome, le ft M76.32 [facility] [address] [facility] [id number] [address] [place] [phone] Apr, Bipolar I disorder, most rec ent episode (or current) mixed, moderate F31.62 [facility] [address] [id number] [address] [place] [id number] Mar, Bipolar I disorder, most rec ent episode (or current) mixed, moderate F31.62 [facility] [address] [id number] [address] [place] [id number] Mar, Bipolar I disorder, most rec ent episode (or current) mixed, moderate F31.62 [facility] [address] [id number] [address] [place] [phone] Mar, [facility] [address] [id number] [address] [place] [phone] Mar, Bipolar I disorder, most rec ent episode (or current) mixed, moderate F31.62 [facility] [address] [facility] [id number] [address] [place] [phone] Mar, Chronic pain G89.29 [facility] [address] [id number] [address] [place] [phone] Mar, Bipolar I disorder, most rec ent episode (or current) mixed, moderate F31.62 [facility] [address] [facility] [id number] [address] [place] [phone] Mar, Bipolar I disorder, most rec ent episode (or current) mixed, moderate F31.62 [facility] [address] [facility] [id number] [address] [place] [phone] Mar, Acute pain of left knee M25. 562 ; Left hip pain M25.552 ; Generalized edema R60.1 and Tongue swelling R22.0 [facility] [address] [facility] [id number] [address] [place] [phone] Mar, [facility] [address] [facility] [id number] [address] [place] [phone] Feb, Chronic pain G89.29 [facility] [address] [facility] [id number] [address] [place] [phone] Feb, Diabetes E11.9 [facility] [address] [id number] [address] [place] [id number] January, Chronic pain G89.29 [facility] [address] [id number] [address] [place] [id number] January, [facility] [address] [facility] [id number] [address] [place] [phone] January, Bipolar I disorder, most rec ent episode (or current) mixed, moderate F31.62 [facility] [address] [facility] [id number] [address] [place] [phone] Dec, Bipolar I disorder, most rec ent episode (or current) mixed, moderate F31.62 [place] [address] [facility] [id number] [address] [place] [phone] Dec, Chronic pain G89.29 [facility] [address] [facility] [id number] [address] [place] [id number] Dec, Bipolar I disorder, most rec ent episode (or current) mixed, moderate F31.62 [place] [address] [facility] [id number] [address] [place] [phone] Dec, Diabetes E11.9 ; Essential h ypertension I10 ; Chronic pain G89.29 and Morbid obesity E66.01 [facility] [address] [facility] [id number] [address] [place] [phone] Dec, [facility] [address] [facility] [id number] [address] [place] [id number] Dec, Bipolar I disorder, most rec ent episode (or current) mixed, moderate F31.62 [place] [address] [facility] [id number] [address] [place] [phone] Dec, Bipolar I disorder, most rec ent episode (or current) mixed, moderate F31.62 [place] [address] [facility] [id number] [address] [place] [phone] Nov, Chronic pain G89.29 [facility] [address] [id number] [address] [place] [phone] Nov, Bipolar I disorder, most rec ent episode (or current) mixed, moderate F31.62 [facility] [address] [id number] [address] [place] [phone] Nov, [facility] [address] [id number] [address] [place] [phone] Nov, Bipolar I disorder, most rec ent episode (or current) mixed, moderate F31.62 [facility] [address] [id number] [address] [place] [phone] Nov, Bipolar I disorder, most rec ent episode (or current) mixed, moderate F31.62 [facility] [address] [id number] [address] [place] [id number] Nov, [facility] [address] [id number] [address] [place] [phone] Nov, [facility] [address] [id number] [address] [place] [phone] Nov, [facility] [address] [id number] [address] [place] [phone] Oct, Chronic pain G89.29 [facility] [address] [id number] [address] [place] [phone] Oct, Bipolar I disorder, most rec ent episode (or current) mixed, moderate F31.62 [facility] [address] [id number] [address] [place] [id number] Oct, [facility] [address] [facility] [id number] [address] [place] [phone] Oct, Chronic pain G89.29 ; Diabet es E11.9 ; Anxiety F41.9 and 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 [facility] [address] [id number] [address] [place] [id number] Oct, [facility] [address] [id number] [address] [place] [phone] Oct, Diabetes E11.9 [facility] [address] [id number] [address] [place] [phone] Oct, Bipolar I disorder, most rec ent episode (or current) mixed, moderate F31.62 [facility] [address] [id number] [address] [place] [id number] Sep, Chronic pain G89.29 [facility] [address] [id number] [address] [place] [id number] Sep, Chronic pain G89.29 [facility] [address] [id number] [address] [place] [phone] Aug, Chronic pain G89.29 [facility] [address] [id number] [address] [place] [phone] Jul, [facility] [address] [id number] [address] [place] [phone] Jul, Diabetes E11.9 [facility] [address] [id number] [address] [place] [phone] Jul, Chronic pain G89.29 [facility] [address] [id number] [address] [place] [id number] Jul, Bipolar I disorder, most rec ent episode (or current) mixed, moderate F31.62 [facility] [address] [id number] [address] [place] [id number] Jun, Bipolar I disorder, most rec ent episode (or current) mixed, moderate F31.62 [facility] [address] [id number] [address] [place] [phone] Jun, [facility] [address] [facility] [id number] [address] [place] [phone] Jun, Bipolar I disorder, most rec ent episode (or current) mixed, moderate F31.62 [facility] [address] [id number] [address] [place] [id number] 30 May, 2016 Insomnia, unspecified type G 47.00 [facility] [address] [id number] [address] [place] [phone] 22 May, 2016 Bipolar I disorder, most rec ent episode (or current) mixed, moderate F31.62 [place] [address] [id number] [address] [place] [id number] 14 May, 2016 [place] [address] [facility] [id number] [address] [place] [phone] 08 May, 2016 Bipolar I disorder, most rec ent episode (or current) mixed, moderate F31.62 [place] [address] [facility] [id number] [address] [place] [phone] 06 May, 2016 Diabetes E11.9 and Essential hypertension I10 [place] [address] [facility] [id number] [address] [place] [phone] Apr, Chronic pain G89.29 [place] [address] [facility] [id number] [address] [place] [phone] Apr, Bipolar I disorder, most rec ent episode (or current) mixed, moderate F31.62 [place] [address] [facility] [id number] [address] [place] [phone] Apr, [place] [address] [facility] [id number] [address] [place] [phone] Apr, [place] [address] [facility] [id number] [address] [place] [phone] Mar, Chronic pain G89.29 ; Headac he, unspecified headache type R51 ; Neuropathy G62.9 ; Pain of right hip joint M25.551 and Essential hypertension I10 [place] [address] [facility] [id number] [address] [place] [phone] Mar, Chronic pain G89.29 [place] [address] [facility] [id number] [address] [place] [phone] Mar, Bipolar I disorder, most rec ent episode (or current) mixed, moderate F31.62 [facility] [address] [facility] [id number] [address] [place] [phone] Feb, Bipolar I disorder, most rec ent episode (or current) mixed, moderate F31.62 and Insomnia, unspecified type G47.00 [facility] [address] [facility] [id number] [address] [place] [id number] Feb, Chronic pain G89.29 [facility] [address] [facility] [id number] [address] [place] [phone] Feb, Bipolar I disorder, most rec ent episode (or current) mixed, moderate F31.62 [facility] [address] [facility] [id number] [address] [place] [phone] January, Bipolar I disorder, most rec ent episode (or current) mixed, moderate F31.62 [facility] [address] [facility] [id number] [address] [place] [phone] January, Chronic pain G89.29 [facility] [address] [facility] [id number] [address] [place] [phone] January, Chronic pain G89.29 and Esse ntial hypertension I10 [facility] [address] [facility] [id number] [address] [place] [phone] January, Bipolar I disorder, most rec ent episode (or current) mixed, moderate F31.62 [facility] [address] [facility] [id number] [address] [place] [id number] Dec, [facility] [address] [facility] [id number] [address] [place] [phone] Dec, [facility] [address] [facility] [id number] [address] [place] [phone] Dec, [facility] [address] [facility] [id number] [address] [place] [id number] Dec, [place] [id number] [id number] Nov, Reactive airway disease J45. 909 [facility] [address] [id number] Nov, [facility] [address] [id number] Nov, [facility] [address] [id number] Nov, [place] [address] [id number] Nov, [place] [address] [phone] Nov, Onychomycosis B35.1 ; Hammer toe M20.40 ; [place] or callus L84 and DM neuro manif type II E11.49 [place] [address] [phone] Nov, Chronic pain G89.29 ; Leukoc ytosis D72.829 and Diabetes E11.9 [place] [address] [phone] Nov, [place] [address] [address] [address] Oct, Bronchitis J40 [place] [address] [address] Oct, [place] [address] [address] Oct, [place] [address] [address] Oct, Mastoiditis, unspecified lat erality H70.90 and Type 2 diabetes mellitus with complication E11.8 [place] [address] [address] Sep, [facility] [address] [facility] [id number] [address] [place] [address] Sep, Dysuria R30.0 ; Cough R05 ; Benign prostatic hyperplasia with lower urinary tract symptoms, unspecified morphology N40.1 ; Hypokalemia E87.6 and Eustachian tube dysfunction, unspecified laterality H69.80 [facility] [address] [facility] [id number] [address] [place] [address] Sep, Moderate mixed bipolar I dis order F31.62 [facility] [address] [facility] [id number] [address] [place] [address] Sep, Hypokalemia E87.6 [facility] [address] [facility] [id number] [address] [place] [address] Sep, [facility] [address] [facility] [id number] [address] [place] [address] Sep, Upper respiratory tract infe ction, unspecified type J06.9 [facility] [address] [facility] [id number] [address] [place] [address] Aug, [facility] [address] [facility] [id number] [address] [place] [id number] Aug, Dysuria R30.0 [facility] [address] [facility] [id number] [address] [place] [address] Aug, [facility] [address] [facility] [id number] [address] [place] [address] Jul, [facility] [address] [facility] [id number] [address] [place] [address] Jul, [facility] [address] [facility] [id number] [address] [place] [address] Jul, [facility] [address] [facility] [id number] [address] [place] [address] Jul, [facility] [address] [facility] [id number] [address] [place] [address] Jun, [facility] [address] [id number] [address] [place] [address] Jun, [facility] [address] [facility] [id number] [address] [place] [address] Jun, [facility] [address] [facility] [id number] [address] [place] [address] May, [facility] [address] [id number] [address] [place] [address] May, Bipolar I disorder, most rec ent episode (or current) mixed, moderate 296.62 [facility] [address] [facility] [id number] [address] [place] [address] May, [facility] [address] [facility] [id number] [address] [place] [address] May, Bipolar I disorder, most rec ent episode (or current) mixed, moderate 296.62 and Major depressive disorder, recurrent episode, severe, specified as with psychotic behavior 296.34 [facility] [address] [id number] [address] [place] [address] May, Bipolar I disorder, most rec ent episode (or current) mixed, moderate 296.62 [facility] [address] [facility] [id number] [address] [place] [address] May, [facility] [address] [facility] [id number] [address] [place] [id number] Apr, [facility] [address] [id number] [address] [place] [address] Apr, [facility] [address] [facility] [id number] [address] [place] [address] Apr, Unspecified disorder of kidn ey and ureter 593.9 and Diabetes mellitus type 2, uncontrolled 250.02 [facility] [address] [facility] [id number] [address] [place] [address] Apr, [facility] [address] [facility] [id number] [address] [place] [address] Apr, [facility] [address] [facility] [id number] [address] [place] [address] Apr, [facility] [address] [facility] [id number] [address] [place] [address] Apr, [facility] [address] [facility] [id number] [address] [place] [address] Apr, Diabetes mellitus type II, u ncontrolled 250.02 [facility] [address] [facility] [id number] [address] [place] [address] Apr, [facility] [address] [place] [id number] [address] [place] [address] Mar, [facility] [address] [place] [id number] [address] [place] [address] Mar, [facility] [address] [place] [id number] [address] [place] [address] Mar, [facility] [address] [place] [id number] [address] [place] [address] Mar, Major depressive disorder, r ecurrent episode, severe, specified as with psychotic behavior 296.34 and Bipolar I disorder, most recent episode (or current) mixed, moderate 296.62 [facility] [address] [place] [id number] [address] [place] [address] Mar, Diabetes 250.00 ; Anuria 788 .5 ; Nausea and vomiting 787.01 and Diarrhea 787.91 [facility] [address] [facility] [id number] [address] [place] [address] Mar, Diabetes 250.00 [facility] [address] [place] [id number] [address] [place] [address] Mar, [facility] [address] [place] [id number] [address] [place] [address] Mar, Diabetes 250.00 [facility] [address] [place] [id number] [address] [place] [address] Mar, [facility] [address] [address] Mar, [facility] [address] [address] Mar, [facility] [address] [address] Mar, [facility] [address] [address] Mar, Bipolar I disorder, most rec ent episode (or current) mixed, moderate 296.62 and Major depressive disorder, recurrent episode, severe, specified as with psychotic behavior 296.34 [facility] [address] [address] Mar, Magnesium deficiency 275.2 ; Hypokalemia 276.8 ; Nausea & vomiting 787.01 and Diabetes mellitus type 2, uncontrolled 250.02 [facility] [address] [address] Feb, [facility] [address] [address] Feb, Bipolar I disorder, most rec ent episode (or current) mixed, moderate 296.62 [facility] [address] [address] Feb, Nausea and vomiting 787.01 ; Left elbow pain 719.42 ; Anuria 788.5 and Diabetes 250.00 [facility] [address] [address] Feb, [facility] [address] [address] Feb, Hypopotassemia 276.8 and Hyp okalemia 276.8 [facility] [address] [address] Feb, Hypopotassemia 276.8 and Hyp okalemia 276.8 [facility] [address] [id number] [address] [place] [id number] Feb, Seborrheic keratoses 702.19 [facility] [address] [id number] [address] [place] [id number] Feb, Hypopotassemia 276.8 and Low magnesium levels 275.2 [facility] [address] [id number] [address] [place] [address] January, [facility] [address] [id number] [address] [place] [address] January, [facility] [address] [id number] [address] [place] [address] January, [facility] [address] [id number] [address] [place] [address] January, Scalp lesion 709.9 [facility] [address] [id number] [address] [place] [address] January, [facility] [address] [id number] [address] [place] [address] Dec, Tear of medial cartilage or meniscus of knee, current 836.0 and Chondromalacia 733.92 [facility] [address] [id number] [address] [place] [address] Dec, [facility] [address] [id number] [address] [place] [id number] Dec, [facility] [address] [id number] [address] [place] [address] Dec, Squamous cell carcinoma, 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 [facility] [address] [id number] [address] [place] [id number] 14 Dec, 2014 [facility] [address] [id number] [address] [place] [id number] Dec, [facility] [address] [id number] [address] [place] [address], [place] [address] Nov, [facility] [address] [id number] [address] [place] [address], [place] [address] Nov, [facility] [address] [id number] [address] [place] [address], [place] [address] Nov, [facility] [address] [id number] [address] [place] [address], [place] [address] Nov, [facility] [address] [id number] [address] [place] [address], [place] [address] Nov, [facility] [address] [id number] [address] [place] [address], [place] [address] Nov, [facility] [address] [id number] [address] [place] [address], [place] [address] Nov, [facility] [address] [id number] [address] [place] [address], [place] [address] Nov, [facility] [address] [id number] [address] [place] [address], [place] [address] Nov, [facility] [address] [id number] [address] [place] [address], [place] [address] Nov, [facility] [address] [id number] [address] [place] [address], [place] [address] Nov, [facility] [address] [id number] [address] [place] [address], [place] [address] Nov, [facility] [address] [id number] [address] [place] [address], [place] [address] Oct, [facility] [address] [id number] [address] [place] [address], [place] [address] Oct, [facility] [address] [id number] [address] [place] [address], [place] [address] Oct, [facility] [address] [id number] [address] [place] [address], [place] [address] Oct, [facility] [address] [id number] [address] [place] [address], [place] [address] Oct, [facility] [address] [id number] [address] [place] [address], [place] [address] Oct, [facility] [address] [id number] [address] [place] [address], [place] [address] Oct, [facility] [address] [id number] [address] [place] [address], [place] [address] Oct, [facility] [address] [id number] [address] [place] [address], [place] [address] Oct, [facility] [address] [id number] [address] [place] [address], [place] [address] Sep, [facility] [address] [id number] [address] [place] [address], [place] [address] Sep, [facility] [address] [id number] [address] [place] [address], [place] [address] Sep, [facility] [address] [id number] [address] [place] [address], [place] [address] Sep, [facility] [address] [id number] [address] [place] [address], [place] [address] Sep, [facility] [address] [id number] [address] [place] [address], [place] [address] Sep, [facility] [address] [id number] [address] [place] [address], [place] [address] Sep, [facility] [address] [id number] [address] [place] [address], [place] [address] Sep, [facility] [address] [id number] [address] [place] [address], [place] [address] Sep, [facility] [address] [id number] [address] [place] [address], [place] [address] Sep, [facility] [address] [id number] [address] [place] [address], [place] [address] 08 Sep, 2014 [facility] [address] [id number] [address] [place] [address], [place] [address] Sep, [facility] [address] [id number] [address] [place] [address], [place] [address] Sep, [facility] [address] [id number] [address] [place] [address], [place] [address] Sep, [facility] [address] [id number] [address] [place] [address], [place] [address] Sep, [facility] [address] [id number] [address] [place] [address], [place] [address] Sep, [facility] [address] [id number] [address] [place] [address], [place] [address] Aug, [facility] [address] [id number] [address] [place] [address], [place] [address] Aug, [facility] [address] [id number] [address] [place] [address], [place] [address] Aug, [facility] [address] [id number] [address] [place] [address], [place] [address] Aug, [facility] [address] [id number] [address] [place] [address], [place] [address] Aug, [facility] [address] [id number] [address] [place] [address], [place] [address] Aug, [facility] [address] [id number] [address] [place] [address], [place] [address] Aug, [facility] [address] [id number] [address] [place] [address], [place] [address] Aug, [facility] [address] [id number] [address] [place] [address], [place] [address] Aug, [facility] [address] [id number] [address] [place] [address], [place] [address] Aug, [facility] [address] [id number] [facility] [place] [address] Aug, [facility] [address] [facility] [place] [id number] Aug, [facility] [address] [id number] [facility] [place] [address] Aug, [facility] [address] [id number] [facility] [place] [address] Aug, [facility] [address] [id number] [facility] [place] [address] Aug, [facility] [address] [id number] [address] [place] [address], [place] [address] Aug, [facility] [address] [id number] [facility] [place] [address] Aug, [facility] [address] [id number] [address] [place] [address], [place] [address] Aug, [facility] [address] [id number] [address] [place] [address], [place] [address] Aug, [facility] [address] [id number] [address] [place] [address], [place] [address] Aug, [facility] [address] [id number] [address] [place] [address], [place] [address] Aug, [facility] [address] [id number] [address] [place] [address], [place] [address] Aug, [facility] [address] [id number] [address] [place] [address], [place] [address] Aug, [facility] [address] [id number] [address] [place] [address], [place] [address] Aug, [facility] [address] [id number] [address] [place] [address], [place] [address] Aug, [facility] [address] [id number] [address] [place] [address], [place] [address] Aug, [facility] [address] [id number] [address] [place] [address], [place] [address] Aug, [facility] [address] [id number] [address] [place] [address], [place] [address] Aug, [facility] [address] [id number] [address] [place] [address], [place] [address] Aug, [facility] [address] [id number] [address] [place] [address], [place] [address] Aug, [facility] [address] [id number] [address] [place] [address], [place] [address] Jul, [facility] [address] [id number] [address] [place] [address], [place] [address] Jul, [facility] [address] [id number] [address] [place] [address], [place] [address] Jul, [facility] [address] [id number] [address] [place] [address], [place] [address] Jul, [facility] [address] [id number] [address] [place] [address], [place] [address] Jul, [facility] [address] [id number] [address] [place] [address], [place] [address] Jul, [facility] [address] [id number] [address] [place] [address], [place] [address] Jul, [facility] [address] [id number] [address] [place] [address], [place] [address] Jul, [facility] [address] [id number] [address] [place] [address], [place] [address] Jul, [facility] [address] [id number] [address] [place] [address], [place] [address] Jul, [facility] [address] [id number] [address] [place] [address], [place] [address] Jun, [facility] [address] [id number] [address] [place] [address], [place] [address] 22 Jun, 2014 [facility] [address] [id number] [address] [place] [address], [place] [address] 16 Jun, 2014 [facility] [address] [id number] [address] [place] [address], [place] [address] 16 Jun, 2014 [facility] [address] [id number] [address] [place] [address], [place] [address] 15 Jun, 2014 [facility] [address] [id number] [address] [place] [address], [place] [address] 15 Jun, 2014 [facility] [address] [id number] [address] [place] [address], [place] [address] Jun, [facility] [address] [id number] [address] [place] [address], [place] [address] Jun, [facility] [address] [id number] [address] [place] [address], [place] [address] Jun, [facility] [address] [id number] [address] [place] [address], [place] [address] Jun, [facility] [address] [id number] [address] [place] [address], [place] [address] 29 May, 2013 [facility] [address] [id number] [address] [place] [address], [place] [address] 29 Sep, 2013 [facility] [address] [id number] [address] [place] [address], [place] [address] 26 Sep, 2013 [facility] [address] [id number] [address] [place] [address], [place] [address] 26 Sep, 2013 [facility] [address] [id number] [address] [place] [address], [place] [address] 17 Sep, 2013 [facility] [address] [id number] [address] [place] [address], [place] [id number] 17 Sep, 2013 [facility] [address] [id number] [address] [place] [address], [place] [address] 15 May, 2013 [facility] [address] [id number] [facility] [place] [id number] 15 May, 2013 [facility] [address] [id number] [address] [place] [address], [place] [address] 15 May, 2013 [facility] [address] [id number] [address] [place] [address], [place] [address] 15 May, 2013 [facility] [address] [id number] [address] [place] [address], [place] [address] 10 May, 2013 [facility] [address] [id number] [address] [place] [address], [place] [address] 10 May, 2013 [facility] [address] [id number] [address] [place] [address], [place] [address] May, 2013 [facility] [address] [id number] [address] [place] [address], [place] [address] May, 2013 [facility] [address] [id number] [address] [place] [address], [place] [address] May, 2013 [facility] [address] [id number] [address] [place] [address], [place] [address] May, [facility] [address] [id number] [address] [place] [address], [place] [id number] Apr, [facility] [address] [id number] [address] [place] [address], [place] [id number] Apr, [facility] [address] [id number] [address] [place] [address], [place] [address] Apr, [facility] [address] [id number] [address] [place] [address], [place] [address] Apr, [facility] [address] [id number] [address] [place] [address], [place] [address] Apr, [facility] [address] [id number] [address] [place] [address], [place] [id number] Apr, [facility] [address] [id number] [address] [place] [address], [place] [address] Apr, [facility] [address] [id number] [facility] [place] [address] Apr, [facility] [address] [id number] [address] [place] [address], [place] [address] Apr, [facility] [address] [id number] [address] [place] [address], [place] [address] Apr, [facility] [address] [id number] [address] [place] [address], [place] [address] Apr, [facility] [address] [id number] [address] [place] [address], [place] [id number] Apr, [facility] [address] [id number] [address] [place] [address], [place] [address] Apr, [facility] [address] [id number] [address] [place] [address], [place] [id number] Apr, [facility] [address] [id number] [address] [place] [address], [place] [address] Apr, [facility] [address] [id number] [address] [place] [address], [place] [address] Mar, [facility] [address] [id number] [address] [place] [address], [place] [address] Mar, [facility] [address] [id number] [address] [place] [address], [place] [id number] Mar, [facility] [address] [id number] [address] [place] [address], [place] [address] Mar, [facility] [address] [id number] [address] [place] [address], [place] [address] Mar, [facility] [address] [id number] [address] [place] [address], [place] [address] Mar, [facility] [address] [id number] [address] [place] [address], [place] [address] Mar, [facility] [address] [id number] [facility] [place] [address] Mar, 2013 [facility] [address] [id number] [facility] [place] [address] Mar, 2013 [facility] [address] [id number] [address] [place] [address], [place] [address] Mar, 2013 [facility] [address] [id number] [address] [place] [address], [place] [address] Mar, 2013 [facility] [address] [id number] [address] [place] [address], [place] [address] Mar, 2013 [facility] [address] [id number] [address] [place] [address], [place] [address] Mar, 2013 [facility] [address] [address] [id number] [address] [place] [address], [place] [address] Mar, 2013 [facility] [place] [facility] [address] [id number] [address] [place] [address], [place] [address] Mar, 2013 [facility] [place] [facility] [address] [id number] [address] [place] [address], [place] [address] Mar, 2013 [facility] [place] [facility] [address] [id number] [address] [place] [address], [place] [address] Mar, [facility] [place] [facility] [address] [id number] [address] [place] [address], [place] [address] Mar, [facility] [place] [facility] [address] [id number] [address] [place] [address], [place] [address] Feb, [facility] [place] [facility] [address] [id number] [address] [place] [address], [place] [address] Feb, [facility] [place] [facility] [address] [id number] [address] [place] [address], [place] [address] Feb, [facility] [place] [facility] [address] [id number] [address] [place] [address], [place] [address] Feb, [facility] [place] [facility] [address] [id number] [address] [place] [address], [place] [address] Feb, [facility] [address] [id number] [facility] [place] [address] Feb, [facility] [place] [facility] [address] [id number] [facility] [place] [address] Feb, [facility] [place] [facility] [address] [id number] [facility] [place] [address] Feb, [facility] [place] [facility] [address] [id number] [facility] [place] [address] Feb, [facility] [place] [facility] [address] [id number] [facility] [place] [address] Feb, [facility] [place] [facility] [address] [id number] [address] [place] [address], [place] [address] Feb, [facility] [place] [facility] [address] [id number] [facility] [place] [address] Feb, [facility] [place] [facility] [address] [id number] [address] [place] [address], [place] [address] Feb, [facility] [place] [facility] [address] [id number] [address] [place] [address], [place] [address] Feb, [facility] [place] [facility] [address] [id number] [address] [place] [address], [place] [address] January, [facility] [place] [facility] [address] [id number] [address] [place] [address], [place] [address] January, [facility] [place] [facility] [address] [id number] [address] [place] [address], [place] [address] January, [facility] [place] [facility] [address] [id number] [facility] [place] [address] January, [facility] [place] [facility] [address] [id number] [address] [place] [address], [place] [address] January, [facility] [place] [facility] [address] [id number] [facility] [place] [address] January, [facility] [place] [facility] [address] [id number] [address] [address] January, [facility] [address] [id number] [address] [place] [address], [place] [address] January, [facility] [address] [id number] [address] [place] [address], [place] [address] January, [facility] [address] [id number] [address] [place] [address], [place] [address] January, [facility] [address] [id number] [address] [place] [address], [place] [address] January, [facility] [address] [id number] [address] [place] [address], [place] [address] January, [facility] [address] [id number] [address] [place] [address], [place] [address] January, [facility] [address] [id number] [address] [place] [address], [place] [address] January, [facility] [address] [id number] [address] [place] [address], [place] [address] Dec, [facility] [address] [id number] [address] [place] [address], [place] [address] Dec, [facility] [address] [id number] [address] [place] [address], [place] [address] Dec, [facility] [address] [id number] [address] [place] [address], [place] [address] Dec, [facility] [address] [id number] [address] [place] [address], [place] [address] Dec, [facility] [address] [id number] [address] [place] [address], [place] [address] Dec, [facility] [address] [id number] [address] [place] [address], [place] [address] Dec, [facility] [address] [id number] [address] [place] [address], [place] [address] Dec, [facility] [address] [id number] [facility] [place] [address] Dec, [facility] [address] [id number] [address] [place] [address], [place] [address] Dec, [facility] [address] [id number] [facility] [place] [address] Nov, [facility] [address] [id number] [address] [place] [address], [place] [address] Nov, [facility] [address] [id number] [address] [place] [address], [place] [address] Nov, [facility] [address] [id number] [address] [place] [address], [place] [address] Nov, [facility] [address] [id number] [address] [place] [address], [place] [address] Nov, [facility] [address] [id number] [address] [place] [address], [place] [address] Nov, [facility] [address] [id number] [address] [place] [address], [place] [address] Nov, [facility] [address] [id number] [address] [place] [address], [place] [address] Nov, [facility] [address] [id number] [address] [place] [address], [place] [address] Nov, [facility] [address] [id number] [address] [place] [address], [place] [address] Nov, [facility] [address] [id number] [address] [place] [address], [place] [address] Oct, [facility] [address] [id number] [address] [place] [address], [place] [address] Oct, [facility] [address] [id number] [address] [place] [address], [place] [address] Oct, [facility] [address] [id number] [address] [place] [address], [place] [address] Oct, [facility] [address] [id number] [address] [place] [address], [place] [address] Oct, [facility] [address] [id number] [address] [place] [address], [place] [address] Oct, [facility] [address] [id number] [address] [place] [address], [place] [address] Oct, [facility] [address] [id number] [address] [place] [address], [place] [address] Oct, [facility] [address] [id number] [address] [place] [address], [place] [address] Oct, [facility] [address] [id number] [address] [place] [address], [place] [address] Oct, [facility] [address] [id number] [address] [place] [address], [place] [address] Oct, [facility] [address] [id number] [address] [place] [address], [place] [address] Oct, [facility] [address] [id number] [address] [place] [address], [place] [address] Oct, [facility] [address] [id number] [address] [place] [address], [place] [address] Oct, [facility] [address] [id number] [address] [place] [address], [place] [address] Sep, [facility] [address] [id number] [address] [place] [address], [place] [address] Sep, [facility] [place] [facility] [address] [id number] [address] [place] [address], [place] [address] Sep, [facility] [address] [id number] [address] [place] [address], [place] [address] Sep, [facility] [address] [id number] [address] [place] [address], [place] [address] Sep, [facility] [address] [id number] [address] [place] [address], [place] [address] 14 Sep, 2013 [facility] [address] [id number] [address] [place] [address], [place] [address] 14 Sep, 2013 [facility] [address] [id number] [address] [place] [address], [place] [address] 14 Sep, 2013 [facility] [address] [id number] [address] [place] [address], [place] [address] Sep, [facility] [address] [id number] [address] [place] [address], [place] [address] Sep, [facility] [address] [id number] [address] [place] [address], [place] [address] Aug, [facility] [address] [id number] [address] [place] [address], [place] [address] Aug, [facility] [address] [id number] [address] [place] [address], [place] [address] Jul, [facility] [address] [id number] [address] [place] [address], [place] [address] Jul, [facility] [address] [id number] [address] [place] [address], [place] [address] Jul, [facility] [address] [id number] [address] [place] [address], [place] [address] Jul, [facility] [address] [id number] [address] [place] [address], [place] [address] Jul, [facility] [address] [id number] [address] [place] [address], [place] [address] Jul, [facility] [address] [id number] [address] [place] [address], [place] [address] Jul, [facility] [place] [facility] [address] [id number] [address] [place] [address], [place] [address] Jul, [facility] [address] [id number] [address] [place] [address], [place] [address] 08 Jul, 2012 [facility] [address] [id number] [address] [place] [address], [place] [address] 08 Jul, 2012 [facility] [address] [id number] [address] [place] [address], [place] [address] Jul, 2012 [facility] [address] [id number] [address] [place] [address], [place] [address] Jul, 2012 [facility] [place] [facility] [address] [id number] [address] [place] [address], [place] [address] Jul, 2012 [facility] [address] [id number] [address] [place] [address], [place] [address] Jul, 2012 [facility] [address] [id number] [address] [place] [address], [place] [address] Jul, 2012 [facility] [address] [id number] [address] [place] [address], [place] [address] Jul, 2012 [facility] [address] [id number] [address] [place] [address], [place] [address] Jul, [facility] [address] [id number] [address] [place] [address], [place] [address] Jul, [facility] [address] [id number] [address] [place] [address], [place] [address] Jul, [facility] [address] [id number] [address] [place] [address], [place] [address] Jun, 2012 [facility] [address] [id number] [address] [place] [address] Jun, 2012 [facility] [address] [id number] [address] [place] [address], [place] [address] Jun, 2012 [facility] [address] [id number] [address] [place] [address], [place] [address] Jun, 2012 [facility] [address] [id number] [address] [place] [address] Jun2012 [facility] [address] [id number] [address] [place] [address], [place] [address] 16 Jun, 2013 [facility] [address] [id number] [address] [place] [address], [place] [address] Jun, [facility] [address] [id number] [address] [place] [address], [place] [address] 10 Jun, 2013 [facility] [address] [id number] [address] [place] [address], [place] [address] Jun, [facility] [address] [id number] [address] [place] [address], [place] [address] Jun, [facility] [address] [id number] [address] [place] [address], [place] [address] Jun, [facility] [address] [id number] [address] [place] [address], [place] [address] 26 May, 2012 [facility] [address] [id number] [address] [place] [address], [place] [address] 25 May, 2012 [facility] [address] [id number] [address] [place] [address], [place] [address] 19 May, 2012 [facility] [address] [id number] [address] [place] [address], [place] [address] 17 May, 2012 [facility] [address] [id number] [address] [place] [address], [place] [address] 11 May, 2012 [facility] [address] [id number] [address] [place] [address], [place] [address] 10 May, 2012 [facility] [address] [id number] [address] [place] [address], [place] [address] 09 May, 2012 [facility] [address] [id number] [address] [place] [address], [place] [address] 05 May, 2012 [facility] [address] [id number] [address] [place] [address], [place] [address] 30 Apr, 2013 [facility] [address] [id number] [address] [place] [address], [place] [address] Apr, [facility] [address] [id number] [address] [place] [address], [place] [address] Apr, [facility] [address] [id number] [address] [place] [address], [place] [address] Apr, [facility] [address] [id number] [address] [place] [address], [place] [address] Apr, [facility] [address] [id number] [address] [place] [address], [place] [address] Mar, [facility] [address] [id number] [address] [place] [address], [place] [address] Mar, [facility] [address] [id number] [address] [place] [address], [place] [address] Mar, [facility] [address] [id number] [address] [place] [address], [place] [address] Mar, [facility] [address] [id number] [address] [place] [address], [place] [address] Mar, [facility] [address] [id number] [address] [place] [address], [place] [address] Mar, [facility] [address] [id number] [address] [place] [address], [place] [address] Mar, [facility] [address] [id number] [address] [place] [address], [place] [address] Mar, [facility] [address] [id number] [address] [place] [address], [place] [address] Feb, [facility] [address] [id number] [address] [place] [address], [place] [address] Feb, [facility] [place] [facility] [address] [id number] [address] [place] [address], [place] [address] January, [facility] [address] [id number] [address] [place] [address], [place] [address] January, [facility] [address] [id number] [address] [place] [address], [place] [address] 10 Dec, 2012 [facility] [address] [id number] [address] [place] [address], [place] [address] 09 Dec, 2012 [facility] [address] [id number] [address] [place] [address], [place] [address] 23 Nov, 2012 [facility] [address] [id number] [address] [place] [address], [place] [address] Nov, [facility] [address] [id number] [address] [place] [address], [place] [address] Nov, [facility] [address] [id number] [address] [place] [address], [place] [address] Nov, [facility] [address] [id number] [address] [place] [address], [place] [address] 27 Oct, 2012 [facility] [address] [id number] [address] [place] [address], [place] [address] 26 Oct, 2012 [facility] [address] [id number] [address] [place] [address], [place] [address] 26 Oct, 2012 [facility] [address] [id number] [address] [place] [address], [place] [address] 26 Oct, 2012 [facility] [address] [id number] [address] [place] [address], [place] [address] 16 Oct, 2012 [facility] [address] [id number] [address] [place] [address], [place] [address] 14 Oct, 2012 [facility] [address] [id number] [address] [place] [address], [place] [address] 08 Oct, 2012 [facility] [address] [id number] [address] [place] [address], [place] [address] 07 Oct, 2012 [facility] [address] [id number] [address] [place] [address], [place] [address] 03 Oct, 2012 [facility] [address] [id number] [address] [place] [address], [place] [address] 30 Sep, 2012 [facility] [address] [id number] [address] [place] [address], [place] [address] Sep, [facility] [address] [id number] [address] [place] [address], [place] [address] Sep, [facility] [address] [id number] [address] [place] [address], [place] [address] Sep, [facility] [address] [id number] [address] [place] [address], [place] [address] Sep, [facility] [address] [id number] [address] [place] [address], [place] [address] Sep, [facility] [address] [id number] [address] [place] [address], [place] [address] Sep, [facility] [address] [id number] [address] [place] [address], [place] [address] Sep, [facility] [address] [id number] [address] [place] [address], [place] [address] 31 Aug, 2012 [facility] [address] [id number] [address] [place] [address], [place] [address] 31 Aug, 2012 [facility] [address] [id number] [address] [place] [address], [place] [address] Aug, [facility] [address] [id number] [address] [place] [address], [place] [address] Aug, [facility] [address] [id number] [address] [place] [address], [place] [address] Aug, [facility] [address] [id number] [address] [place] [address], [place] [address] Aug, [facility] [address] [id number] [address] [place] [address], [place] [address] Aug, [facility] [address] [id number] [address] [place] [address], [place] [address] Aug, [facility] [address] [id number] [address] [place] [address], [place] [address] Jul, [facility] [address] [id number] [address] [place] [address], [place] [address] Jul, [facility] [address] [id number] [address] [place] [address], [place] [address] Jul, [facility] [address] [id number] [address] [place] [address], [place] [address] Jul, [facility] [address] [id number] [address] [place] [address], [place] [address] Jul, [facility] [address] [id number] [address] [place] [address], [place] [address] Jul, [facility] [address] [id number] [address] [place] [address], [place] [address] Jun, [facility] [address] [id number] [address] [place] [address], [place] [address] Jun, [facility] [address] [id number] [address] [place] [address], [place] [address] Jun, [facility] [address] [id number] [address] [place] [address], [place] [address] Jun, [facility] [address] [id number] [address] [place] [address], [place] [address] Jun, [facility] [address] [id number] [address] [place] [address], [place] [address] Jun, [facility] [address] [id number] [address] [place] [address], [place] [address] Jun, [facility] [address] [id number] [address] [place] [address], [place] [address] Jun, [facility] [address] [id number] [address] [place] [address], [place] [address] Jun, [facility] [address] [id number] [address] [place] [address], [place] [address] May, [facility] [address] [id number] [address] [place] [address], [place] [address] May, [facility] [address] [id number] [address] [place] [address], [place] [address] May, [facility] [address] [id number] [address] [place] [address], [place] [address] Apr, [facility] [address] [id number] [address] [place] [address], [place] [address] Apr, [facility] [address] [id number] [address] [place] [address], [place] [address] Apr, [facility] [address] [id number] [address] [place] [address], [place] [address] Apr, [facility] [address] [id number] [address] [place] [address], [place] [address] Apr, [facility] [address] [id number] [address] [place] [address], [place] [address] Apr, [facility] [address] [id number] [address] [place] [address], [place] [address] Mar, [facility] [address] [id number] [address] [place] [address], [place] [address] Mar, [facility] [address] [id number] [address] [place] [address], [place] [address] Mar, [facility] [address] [id number] [address] [place] [address], [place] [address] Mar, [facility] [address] [id number] [address] [place] [address], [place] [address] Feb, [facility] [address] [id number] [address] [place] [address], [place] [address] Feb, [facility] [address] [id number] [address] [place] [address], [place] [address] Feb, [facility] [address] [id number] [address] [place] [address], [place] [address] Feb, [facility] [address] [id number] [address] [place] [address], [place] [address] Feb, [facility] [address] [id number] [address] [place] [address], [place] [address] January, [facility] [address] [id number] [address] [place] [address], [place] [address] January, [facility] [address] [id number] [address] [place] [address], [place] [address] January, [facility] [address] [id number] [address] [place] [address], [place] [address] January, [facility] [address] [id number] [address] [place] [address], [place] [address] January, [facility] [address] [id number] [address] [place] [address], [place] [address] January, [facility] [address] [id number] [address] [place] [address], [place] [address] Dec, [facility] [address] [id number] [address] [place] [address], [place] [address] Dec, [facility] [address] [id number] [address] [place] [address], [place] [address] Dec, [facility] [address] [id number] [address] [place] [address], [place] [id number] Dec, [facility] [address] [id number] [address] [place] [address], [place] [address] Dec, [facility] [address] [id number] [address] [place] [address], [place] [address] Nov, [facility] [address] [id number] [address] [place] [address], [place] [id number] Nov, [facility] [address] [id number] [address] [place] [address], [place] [address] Nov, [facility] [address] [id number] [address] [place] [address], [place] [address] Nov, [facility] [address] [id number] [address] [place] [address], [place] [address] 29 Oct, 2011 [facility] [address] [id number] [address] [place] [address], [place] [id number] 28 Oct, 2011 [facility] [address] [id number] [address] [place] [address], [place] [id number] 24 Oct, 2011 [facility] [address] [id number] [address] [place] [address], [place] [id number] Oct, [facility] [address] [id number] [address] [place] [address], [place] [address] Oct, [facility] [address] [id number] [address] [place] [address], [place] [address] Sep, [facility] [address] [id number] [address] [place] [address], [place] [address] Sep, [facility] [address] [id number] [address] [place] [address], [place] [address] Sep, [facility] [address] [id number] [address] [place] [address], [place] [address] Sep, [facility] [address] [id number] [address] [place] [address], [place] [address] Sep, [facility] [address] [id number] [address] [place] [address], [place] [id number] Sep, [facility] [address] [id number] [address] [place] [address], [place] [address] Aug, [facility] [address] [id number] [address] [place] [address], [place] [address] Aug, [facility] [address] [id number] [address] [place] [address], [place] [address] Aug, [facility] [address] [id number] [address] [place] [address], [place] [address] Jul, [facility] [address] [id number] [address] [place] [address], [place] [address] Jul, [facility] [address] [id number] [address] [place] [address], [place] [address] Jul, [facility] [address] [id number] [address] [place] [address], [place] [address] Jul, [facility] [address] [id number] [address] [place] [address], [place] [address] Jun, [facility] [address] [id number] [address] [place] [address], [place] [address] Jun, [facility] [address] [id number] [address] [place] [address], [place] [address] Jun, [facility] [address] [id number] [address] [place] [address], [place] [address] Jun, [facility] [address] [id number] [address] [place] [address], [place] [address] Jun, [facility] [address] [id number] [address] [place] [address], [place] [address] Jun, [facility] [address] [id number] [address] [place] [address], [place] [address] Mar, [facility] [address] [id number] [address] [place] [address], [place] [address] Dec, [facility] [address] [id number] [address] [place] [id number] Dec, [facility] [address] [id number] [address] [place] [address], [place] [address] Nov, [facility] [address] [id number] [address] [place] [address], [place] [address] 16 Nov, 2010 [facility] [address] [id number] [address] [place] [address], [place] [address] Sep, [facility] [address] [id number] [address] [place] [address], [place] [address] 31 Aug, 2010 [facility] [address] [id number] [address] [place] [address], [place] [address] 29 Aug, 2010 [facility] [address] [id number] [address] [place] [address], [place] [address] 29 Aug, 2010 [facility] [address] [id number] [address] [place] [address], [place] [address] 29 Aug, 2010 [facility] [address] [id number] [address] [place] [address], [place] [address] 27 Aug, 2010 [facility] [address] [id number] [address] [place] [address], [place] [address] 14 Aug, 2010 [facility] [address] [id number] [address] [place] [address], [place] [address] 08 Aug, 2010 [facility] [address] [id number] [address] [place] [address], [place] [address] 08 Aug, 2010 [facility] [address] [id number] [address] [place] [address], [place] [address] 07 Aug, 2010 [facility] [address] [id number] [address] [place] [address], [place] [address] 06 Aug, 2010 [facility] [address] [id number] [address] [place] [address], [place] [address] 06 Aug, 2010 [facility] [address] [id number] [address] [place] [address], [place] [address] Aug, [facility] [address] [id number] [address] [place] [address], [place] [address] 30 Jul, 2010 [facility] [address] [id number] [address] [place] [address], [place] [address] 30 Jul, 2010 [facility] [address] [id number] [address] [place] [address], [place] [address] 30 Jul, 2010 [facility] [address] [id number] [address] [place] [address], [place] [address] Jul, [facility] [address] [id number] [address] [place] [address], [place] [id number] 08 Jul, 2010 [facility] [address] [id number] [address] [place] [address], [place] [address] Jul, [facility] [address] [id number] [address] [place] [address], [place] [id number] 24 Jun, 2010 [facility] [address] [id number] [address] [place] [address], [place] [address] Jun, [facility] [address] [id number] [address] [place] [address], [place] [address] Jun, [facility] [address] [id number] [address] [place] [address], [place] [id number] Jun, [facility] [address] [id number] [address] [place] [address], [place] [address] Apr, [facility] [address] [id number] [address] [place] [address], [place] [address] Mar, [facility] [address] [id number] [address] [place] [address], [place] [address] Feb, [facility] [address] [id number] [address] [place] [id number] January, [facility] [address] [id number] [address] [place] [id number] 15 Dec, 2009 [facility] [address] [id number] [address] [place] [id number] Nov, [facility] [address] [id number] [address] [place] [address], [place] [address] Aug, [facility] [address] [id number] [address] [place] [id number] Aug, [facility] [address] [id number] [address] [place] [id number] 07 Aug, 2009 [facility] [address] [id number] [address] [place] [id number] Jul, [facility] [address] [id number] [address] [place] [id number] Jul, [facility] [address] [id number] [address] [place] [id number] Jul, [facility] [address] [id number] [address] [place] [id number] Jun, [facility] [address] [id number] [address] [place] [id number] Jun, [facility] [address] [id number] [address] [place] [id number] Jun, [facility] [address] [id number] [address] [place] [id number] Jun, [facility] [address] [id number] [address] [place] [id number] Jun, [facility] [address] [id number] [address] [place] [id number] Jun, [facility] [address] [id number] [address] [place] [id number] Apr, [facility] [address] [id number] [address] [place] [id number] Apr, [facility] [address] [id number] [address] [place] [id number] Feb, [facility] [address] [id number] [address] [place] [id number] January, [facility] [address] [id number] [address] [place] [id number] Dec, IMMUNIZATIONS No Known Immunizations SOCIAL HISTORY [...] History skin cancer-basal cell R oriental orthodox (removed ) Medical History Arthritis Medical [...] History inability to urinate 09/16/15 Hospitalization History [facility] inpatient mental health ea rly 2000's Hospitalization History hyperkalemia 10/2017 Hospitalization History fluid in lung
--- OUTSIDE RECORDS SUMMARY | 2020-04-11 11:10 | XMS REPORT ---
Author Author Michele WASHBURN Organization [facility] Address [address] [place] [address] Care Team Providers Care Manager Visual Name Role Phone NOEMI WASHBURN Unavailable PROBLEMS Type Condition ICD9-CM Code KMD27-DH Code Onset Dates Condition S tatus SNOMED Code Problem Bipolar I disorder, most recent episode (or curr ent) mixed, moderate F31.62 Active 95609247 Problem Anxiety F41.9 Active 40917043 Problem Insomnia, unspecified type G47.00 Act sharon 756900053 Problem Essential hypertension I10 Active 16625594 Problem Morbid obesity E66.01 Active 40894 6002 Problem Polyneuropathy associated with underlying disease G63 Active 342490937 Problem Diabetic polyneuropathy associated with type 2 d iabetes mellitus E11.42 Active 87832477 Problem Chronic diastolic (congestive) heart failure I50.3 2 Active 650282599 Problem Diabetes E11.9 Active 18397967 Problem Bipolar disorder F31.9 Active 137 45708 Problem Chronic pain G89.29 Active 5922624 1 Problem Reactive airway disease J45.909 Active 096334611962 Problem Leukocytosis D72.829 Active 8089315 06 Problem Falling R29.6 Active 904088326 Problem 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 Active 758897117 Problem Pure hypercholesterolemia E78.00 Acti ve 805979757 Problem Dysuria R30.0 Active 76180848 Problem Bipolar disorder, in partial remission, most rec ent episode depressed F31.75 Active 41152920 Problem Hypokalemia E87.6 Active 25681660 Problem Other iron deficiency anemia D50.8 A ctive 51382576 Problem Eustachian tube dysfunction, unspecified laterality H69.80 Active 31926523 Problem Primary osteoarthritis of right knee M17.11 Active 451920895582975 Problem Cough R05 Active 57564171 Problem Skin cancer C44.90 Active 36146722 7 Problem DM neuro manif type II E11.49 Active 72037808 Problem Mild cognitive impairment G31.84 Acti ve 737149097 Problem Benign prostatic hyperplasia with lower urinary tract symptoms, unspecified morphology N40.1 Active 24190 6007 Problem Psychophysiological insomnia F51.04 A ctive 073060577 Problem Type 2 diabetes mellitus with diabetic neuropathy, uns pecified E11.40 Active 57245532 Problem buttermaker continuous churn (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 Z79.4 Active 558101280 Problem PVD (peripheral vascular disease) I73.9 Active 165863067 Problem Retinal edema H35.81 Active 441780 6 Problem Chronic lymphocytic leukemia C91.10 A ctive 70963480 Problem Agitation R45.1 Active 383932691 Problem Bilateral primary osteoarthritis of knee M17.0 Active 177762978 Problem Eye exam abnormal R93.8 Active 16 5706480 Problem Anemia of chronic illness D63.8 Acti ve 363749662 Problem Lymphocytosis D72.820 Active 871345 09 Problem Mood disorder F39 Active 146307 05 Problem Bipolar I disorder, most recent episode depressed, moderat e F31.32 Active 462509008 Problem Pressure ulcer of other site, stage 3 L89.893 Active 079767465 Problem Gastroesophageal reflux disease without esophagitis K21.9 Active 497851011 Problem Other secondary acute gout, 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 0 Active 845918901 ALLERGIES No Information ENCOUNTERS Encounter Location Date Diagnosis [place] [address] [facility] [id number] [address] [place] [id number] Mar, [facility] [address] [facility] [id number] [address] [place] [id number] 15 Mar, 2020 [facility] [address] [facility] [id number] [address] [place] [id number] Mar, [facility] [address] [facility] [id number] [address] [place] [phone] Mar, [facility] [address] [facility] [id number] [address] [place] [phone] Mar, [facility] [address] [facility] [id number] [address] [place] [id number] Feb, Bipolar I disorder, most rec ent episode depressed, moderate F31.32 ; Anxiety F41.9 and Mild cognitive impairment G31.84 [facility] [address] [id number] [address] [place] [id number] 24 Feb, 2020 [facility] [address] [facility] [id number] [address] [place] [id number] 24 Feb, 2020 Gastroesophageal reflux dise ase without esophagitis K21.9 [facility] [address] [facility] [id number] [address] [place] [id number] 23 Feb, 2020 [place] [address] [facility] [id number] [address] [place] [id number] 18 Feb, 2020 Bipolar I disorder, most rec ent episode depressed, moderate F31.32 ; Anxiety F41.9 and Mild cognitive impairment G31.84 [place] [address] [facility] [id number] [address] [place] [id number] 17 Feb, 2020 Chronic pain G89.29 [place] [address] [facility] [id number] [address] [place] [phone] Feb, Agitation R45.1 [place] [address] [facility] [id number] [address] [place] [id number] 17 Feb, 2020 PVD (peripheral vascular dis ease) I73.9 ; Status post CVA Z86.73 ; Status post carotid endarterectomy Z98.890 ; Vertigo R42 ; Mild cognitive impairment G31.84 ; Type 2 diabetes mellitus with diabetic neuropathy, unspecified E11.40 and Essential hypertension I10 [place] [address] [facility] [id number] [address] [place] [phone] Feb, [place] [address] [facility] [id number] [address] [place] [phone] Feb, [place] [address] [facility] [id number] [address] [place] [phone] January, [place] [address] [facility] [id number] [address] [place] [id number] January, Chronic pain G89.29 [place] [address] [place] [id number] [address] [place] [id number] 27 Dec, 2019 [facility] [address] [facility] [id number] [address] [place] [id number] 17 Dec, 2019 Chronic pain G89.29 [facility] [address] [id number] [address] [place] [phone] 13 Dec, 2019 [facility] [address] [facility] [id number] [address] [place] [phone] Dec, [facility] [address] [id number] [address] [place] [id number] 07 Dec, 2019 Gastroesophageal reflux dise ase without esophagitis K21.9 and Pure hypercholesterolemia E78.00 [facility] [address] [facility] [id number] [address] [place] [id number] Dec, Mood disorder F39 [place] [address] [facility] [id number] [place] [id number] Nov, Other secondary acute gout, 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 [facility] [address] [facility] [id number] [address] [place] [id number] Nov, Gastroesophageal reflux dise ase without esophagitis K21.9 [facility] [address] [facility] [id number] [address] [place] [phone] Nov, Chronic pain G89.29 [facility] [address] [facility] [id number] [address] [place] [id number] Nov, Bipolar I disorder, most rec ent episode depressed, moderate F31.32 ; Anxiety F41.9 and Mild cognitive impairment G31.84 [facility] [address] [facility] [id number] [address] [place] [phone] Nov, [facility] [address] [facility] [id number] [address] [place] [id number] 04 Nov, 2019 Syncope, unspecified syncope type R55 [facility] [address] [facility] [id number] [address] [place] [id number] Nov, Mood disorder F39 [facility] [address] [id number] [address] [place] [phone] Oct, Chronic pain G89.29 [facility] [address] [id number] [address] [place] [id number] Oct, [facility] [address] [id number] [address] [place] [id number] Oct, Mood disorder F39 [facility] [address] [id number] [address] [place] [phone] Oct, [facility] [address] [id number] [address] [place] [phone] Oct, Bipolar disorder, in partial remission, most recent episode depressed F31.75 and Mild cognitive impairment G31.84 [facility] [address] [id number] [address] [place] [id number] Oct, Mood disorder F39 [facility] [address] [id number] [address] [place] [phone] Sep, [facility] [address] [id number] [address] [place] [id number] Sep, Mood disorder F39 [facility] [address] [id number] [address] [place] [id number] Sep, Bipolar disorder, in partial remission, most recent episode depressed F31.75 and Mild cognitive impairment G31.84 [facility] [address] [id number] [address] [place] [id number] Sep, Mood disorder F39 [facility] [address] [id number] [address] [place] [phone] Sep, [facility] [address] [id number] [address] [place] [phone] Sep, Mood disorder F39 [facility] [address] [id number] [address] [place] [phone] Sep, [facility] [address] [id number] [address] [place] [address], [place] [id number] Aug, Mood disorder F39 [facility] [address] [id number] [address] [place] [address], [place] [id number] Aug, [facility] [address] [id number] [address] [place] [address], [place] [id number] Aug, [facility] [address] [id number] [address] [place] [address], [place] [id number] Aug, [facility] [address] [id number] [address] [place] [address], [place] [id number] Aug, [facility] [address] [id number] [address] [place] [address], [place] [id number] Aug, [facility] [address] [id number] [address] [place] [address], [place] [id number] Aug, [facility] [address] [id number] [address] [place] [address], [place] [id number] Aug, [facility] [address] [id number] [address] [place] [address], [place] [address] Aug, Essential hypertension I10 [facility] [address] [id number] [address] [place] [id number] Aug, Bipolar disorder, in partial remission, most recent episode depressed F31.75 and Mild cognitive impairment G31.84 [facility] [address] [id number] [address] [place] [id number] Aug, Mood disorder F39 [facility] [address] [id number] [address] [place] [address], [place] [id number] Aug, [facility] [address] [id number] [address] [place] [id number] Aug, Bipolar disorder, in partial remission, most recent episode depressed F31.75 and Mild cognitive impairment G31.84 [facility] [address] [id number] [address] [place] [id number] Jul, Bipolar disorder, in partial remission, most recent episode depressed F31.75 and Mild cognitive impairment G31.84 [facility] [address] [id number] [address] [place] [id number] Jul, Psychophysiological insomnia F51.04 [facility] [address] [id number] [address] [place] [id number] Jul, [facility] [address] [id number] [address] [place] [id number] Jul, [facility] [address] [id number] [address] [place] [phone] Jul, [facility] [address] [id number] [address] [place] [id number] Jul, [facility] [address] [id number] [address] [place] [phone] Jul, [facility] [address] [id number] [address] [place] [id number] Jul, [facility] [address] [id number] [address] [place] [id number] Jul, Bipolar disorder, in partial remission, most recent episode depressed F31.75 and Mild cognitive impairment G31.84 [facility] [address] [id number] [address] [place] [phone] Jul, Chronic pain G89.29 ; Diabet es E11.9 ; Essential hypertension I10 ; Ill feeling R68.89 ; Local infection of the skin and subcutaneous tissue, unspecified L08.9 and Other injury of unspecified body region, initial encounter T14.8XXA [facility] [address] [id number] [address] [place] [phone] Jun, Bipolar disorder, in partial remission, most recent episode depressed F31.75 and Mild cognitive impairment G31.84 [facility] [address] [id number] [address] [place] [id number] Jun, [facility] [address] [facility] [id number] [address] [place] [id number] Jun, Bipolar disorder, in partial remission, most recent episode depressed F31.75 and Mild cognitive impairment G31.84 [facility] [address] [facility] [id number] [address] [place] [phone] Jun, Psychophysiological insomnia F51.04 [facility] [address] [id number] [address] [place] [phone] Jun, Psychophysiological insomnia F51.04 ; Chronic pain G89.29 ; Bipolar I disorder, most recent episode (or current) mixed, moderate F31.62 ; 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 ; Polyneuropathy associated with underlying disease G63 ; Type 2 diabetes mellitus with diabetic neuropathy, unspecified E11.40 ; buttermaker continuous churn (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 Z79.4 and Hyperglycemia R73.9 [place] [id number] [facility] [id number] [address] [place] [phone] Jun, Bipolar disorder, in partial remission, most recent episode depressed F31.75 and Mild cognitive impairment G31.84 [facility] [address] [facility] [id number] [address] [place] [id number] Jun, [place] [address] [facility] [id number] [address] [place] [phone] Jun, Bipolar disorder F31.9 [facility] [address] [id number] [address] [place] [phone] May, Bipolar disorder, in partial remission, most recent episode depressed F31.75 and Mild cognitive impairment G31.84 [facility] [address] [id number] [address] [place] [phone] May, [facility] [address] [facility] [id number] [address] [place] [id number] Apr, Chronic pain G89.29 and Bipo lar disorder F31.9 [facility] [address] [id number] [address] [place] [phone] Mar, Bipolar disorder F31.9 and C hronic pain G89.29 [facility] [address] [id number] [address] [place] [phone] Feb, Bipolar disorder F31.9 [facility] [address] [id number] [address] [place] [id number] Feb, Cellulitis of right upper ex tremity L03.113 and Skin abrasion T14.8XXA [facility] [address] [id number] [address] [place] [id number] Feb, Bipolar disorder, in partial remission, most recent episode depressed F31.75 and Mild cognitive impairment G31.84 [facility] [address] [id number] [address] [place] [id number] Feb, Chronic pain G89.29 [facility] [address] [id number] [address] [place] [id number] Feb, Bipolar disorder, in partial remission, most recent episode depressed F31.75 and Mild cognitive impairment G31.84 [facility] [place] [address] [id number] [address] [place] [id number] January, Bipolar disorder, in partial remission, most recent episode depressed F31.75 and Mild cognitive impairment G31.84 [facility] [place] [address] [id number] [address] [place] [phone] January, Chronic pain G89.29 and Bipo lar disorder F31.9 [facility] [place] [address] [id number] [address] [place] [id number] January, Bipolar disorder, in partial remission, most recent episode depressed F31.75 and Mild cognitive impairment G31.84 [facility] [address] [id number] [address] [place] [phone] Dec, [facility] [place] [address] [id number] [address] [place] [id number] Dec, Chronic pain G89.29 and Bipo lar disorder F31.9 [facility] [place] [address] [facility] [id number] [address] [place] [id number] 17 Dec, 2018 Edema of both lower extremit ies R60.0 [facility] [address] [facility] [id number] [address] [place] [id number] 15 Dec, 2018 Bipolar disorder F31.9 [facility] [place] [address] [facility] [id number] [address] [place] [id number] 08 Dec, 2018 Bipolar disorder, in partial remission, most recent episode depressed F31.75 and Mild cognitive impairment G31.84 [facility] [address] [facility] [id number] [address] [place] [phone] Nov, [place] [address] [facility] [id number] [address] [place] [id number] Nov, Chronic pain G89.29 [place] [address] [place] [id number] [address] [place] [phone] Nov, Bipolar disorder, in partial remission, most recent episode depressed F31.75 and Mild cognitive impairment G31.84 [facility] [address] [facility] [id number] [address] [place] [phone] Nov, Bipolar disorder F31.9 [place] [address] [facility] [id number] [address] [place] [id number] 04 Nov, 2018 Encounter for Medicare annua [...] unspecified morphology N40.1 and Essential hypertension I10 [facility] [address] [facility] [id number] [address] [place] [phone] Oct, Chronic pain G89.29 [place] [address] [place] [id number] [place] [phone] Oct, Diabetes E11.9 [place] [id number] [place] [phone] Oct, Bipolar I disorder, most rec ent episode (or current) mixed, moderate F31.62 and Mild cognitive impairment G31.[address] [id number] Oct, Bipolar I disorder, most rec ent episode (or current) mixed, moderate F31.62 and Mild cognitive impairment G31.[address] [id number] Sep, Bipolar I disorder, most rec ent episode (or current) mixed, moderate F31.62 and Mild cognitive impairment G31.[address] [id number] Sep, [address] [id number] Sep, Diabetes E11.9 ; Hypoxia R09 .02 ; Hyperglycemia R73.9 ; Therapeutic drug monitoring Z51.81 ; BMI 50.0-59.9, adult Z68.43 and Skin cancer C44.90 [place] [id number] [address] [place] [address] Sep, Chronic pain G89.[address] [id number] Sep, Bipolar I disorder, most rec ent episode (or current) mixed, moderate F31.[address] [id number] Sep, [place] [address] [place] [id number] [place] [phone] Sep, [address] [id number] Aug, Chronic pain G89.29 [facility] [address] [id number] [address] [place] [id number] Aug, Bipolar I disorder, most rec ent episode (or current) mixed, moderate F31.62 [facility] [address] [id number] [address] [place] [id number] Aug, Bipolar I disorder, most rec ent episode (or current) mixed, moderate F31.62 and Mild cognitive impairment G31.84 [facility] [place] [address] [id number] [address] [place] [id number] Jul, [facility] [place] [address] [id number] [address] [place] [id number] Jul, Chronic pain G89.29 [facility] [place] [address] [id number] [address] [place] [id number] Jul, Bipolar I disorder, most rec ent episode (or current) mixed, moderate F31.62 and Mild cognitive impairment G31.84 [facility] [place] [address] [id number] [address] [place] [id number] Jul, Bipolar I disorder, most rec ent episode (or current) mixed, moderate F31.62 and MCI (mild cognitive impairment) G31.84 [facility] [place] [address] [id number] [address] [place] [phone] Jul, [facility] [place] [address] [id number] [address] [place] [id number] Jul, [facility] [place] [address] [id number] [address] [place] [id number] Jul, Bipolar I disorder, most rec ent episode (or current) mixed, moderate F31.62 [facility] [place] [address] [id number] [address] [place] [id number] Jul, Chronic pain G89.29 [facility] [place] [address] [id number] [address] [place] [id number] Jun, Bipolar I disorder, most rec ent episode (or current) mixed, moderate F31.62 [facility] [place] [address] [id number] [address] [place] [id number] Jun, Pre-procedure lab exam Z01.8 12 [facility] [place] [address] [id number] [address] [place] [id number] Jun, [facility] [address] [id number] [place] [id number] Jun, [facility] [place] [address] [facility] [id number] [address] [place] [phone] Jun, [place] [address] [facility] [id number] [address] [place] [phone] Jun, Forgetfulness R68.89 ; Pre-s yncope R55 ; Localized edema R60.0 ; Other iron deficiency anemia D50.8 and BMI 50.0-59.9, adult Z68.43 [facility] [place] [address] [facility] [id number] [address] [place] [phone] Jun, Chronic pain G89.29 [facility] [place] [address] [facility] [id number] [address] [place] [id number] Jun, Chronic pain G89.29 [facility] [place] [address] [facility] [id number] [address] [place] [id number] Jun, Bipolar I disorder, most rec ent episode (or current) mixed, moderate F31.62 [facility] [place] [address] [facility] [id number] [address] [place] [id number] May, Chronic pain G89.29 [facility] [place] [address] [facility] [id number] [address] [place] [phone] Apr, [facility] [place] [address] [facility] [id number] [address] [place] [id number] Apr, Chronic pain G89.29 [facility] [place] [address] [facility] [id number] [address] [place] [id number] Apr, Primary osteoarthritis of ri ght knee M17.11 [place] [address] [place] [id number] [address] [place] [id number] Mar, [place] [address] [id number] Mar, BMI 50.0-59.9, adult Z68.43 and Bipolar disorder, in partial remission, most recent episode depressed F31.75 [place] [address] [id number] Mar, Diabetes E11.9 ; Pure hyperc holesterolemia E78.00 ; Essential hypertension I10 ; Nausea with vomiting, unspecified R11.2 and Headache, unspecified headache type R51 [place] [address] [id number] Mar, Bipolar I disorder, most rec ent episode (or current) mixed, moderate F31.62 [place] [address] [id number] Mar, Bipolar I disorder, most rec ent episode (or current) mixed, moderate F31.62 [place] [address] [address] Mar, Chronic pain G89.29 [place] [address] [id number] 02 Mar, 2018 Bipolar I disorder, most rec ent episode (or current) mixed, moderate F31.62 [place] [address] [id number] 18 Feb, 2018 Bipolar I disorder, most rec ent episode (or current) mixed, moderate F31.62 [place] [address] [id number] 14 Feb, 2018 Chronic pain G89.29 [place] [address] [id number] 06 Feb, 2018 Decubitus ulcer of right josselin t, stage 3 L89.893 and BMI 50.0-59.9, adult Z68.43 [place] [address] [place] [id number] [address] [place] [phone] Feb, Bipolar I disorder, most rec ent episode (or current) mixed, moderate F31.62 [place] [address] [place] [id number] [place] [phone] Feb, [place] [address] [place] [id number] [place] [phone] January, [place] [address] [place] [id number] [place] [phone] January, Chronic pain G89.29 [place] [address] [place] [id number] [place] [phone] January, Bipolar I disorder, most rec ent episode (or current) mixed, moderate F31.62 [place] [address] [id number] January, Bipolar I disorder, most rec ent episode (or current) mixed, moderate F31.62 [place] [address] [place] [id number] [place] [phone] Dec, Bipolar I disorder, most rec ent episode (or current) mixed, moderate F31.62 and BMI 50.0-59.9, adult Z68.43 [place] [address] [place] [id number] [place] [phone] Dec, Bipolar I disorder, most rec ent episode (or current) mixed, moderate F31.62 [place] [address] [place] [id number] [address] [place] [id number] Dec, Chronic pain G89.29 [place] [address] [place] [id number] [place] [phone] Dec, DM neuro manif type II E11.4 9 ; Right flank pain R10.9 ; buttermaker continuous churn current use of opiate analgesic Z79.891 ; Encounter for medication monitoring Z51.81 and BMI 50.0-59.9, adult Z68.43 [facility] [place] [address] [facility] [id number] [address] [place] [id number] Dec, Bipolar I disorder, most rec ent episode (or current) mixed, moderate F31.62 [facility] [place] [address] [facility] [id number] [address] [place] [phone] Nov, Bipolar I disorder, most rec ent episode (or current) mixed, moderate F31.62 [facility] [place] [address] [facility] [id number] [address] [place] [phone] Nov, Chronic pain G89.29 [place] [address] [place] [id number] [address] [place] [id number] Nov, Bipolar I disorder, most rec ent episode (or current) mixed, moderate F31.62 [place] [address] [place] [id number] [address] [place] [id number] Nov, Hypokalemia E87.6 [facility] [place] [address] [facility] [id number] [address] [place] [id number] Nov, Bipolar I disorder, most rec ent episode (or current) mixed, moderate F31.62 [place] [id number] [place] [id number] [address] [place] [phone] Oct, Chronic pain G89.29 [facility] [place] [address] [facility] [id number] [address] [place] [id number] Oct, BMI 50.0-59.9, adult Z68.43 and Bipolar I disorder, most recent episode (or current) mixed, moderate F31.62 [place] [address] [facility] [id number] [address] [place] [id number] Oct, Bipolar I disorder, most rec ent episode (or current) mixed, moderate F31.62 [facility] [place] [address] [facility] [id number] [address] [place] [id number] Oct, [facility] [place] [address] [place] [id number] [address] [place], [place] [id number] Oct, Hypokalemia E87.6 [facility] [place] [address] [place] [id number] [address] [place] [phone] Oct, DM neuro manif type II E11.4 9 [facility] [place] [address] [place] [id number] [address] [place] [phone] Oct, Bipolar I disorder, most rec ent episode (or current) mixed, moderate F31.62 [facility] [place] [address] [place] [id number] [address] [place] [id number] Oct, Bipolar I disorder, most rec ent episode (or current) mixed, moderate F31.62 [place] [address] [place] [id number] [address] [place] [address] 14 Oct, 2017 Hyperkalemia E87.5 ; Falling R29.6 ; BMI 50.0-59.9, adult Z68.43 and Acute left ankle pain M25.572 [place] [address] [place] [id number] [address] [place] [phone] Oct, DM neuro manif type II E11.4 9 [place] [address] [place] [id number] [address] [place] [address] Oct, [place] [address] [address] Sep, Chronic pain G89.29 [place] [address] [address] Sep, [place] [address] [place] [id number] [address] [place] [id number] Sep, Bilateral primary osteoarthr itis of knee M17.0 [place] [address] [place] [id number] [address] [place] [phone] Sep, Generalized edema R60.1 [place] [address] [address] Sep, Bipolar I disorder, most rec ent episode (or current) mixed, moderate F31.62 [place] [address] [place] [id number] [address] [place] [id number] 15 Sep, 2017 Hypoxia R09.02 ; Other hyper volemia E87.79 ; Diabetes E11.9 ; Retinal edema H35.81 ; Hypokalemia E87.6 ; 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 ; Anemia of chronic illness D63.8 and BMI 50.0- 59.9, adult Z68.43 [place] [address] [place] [id number] [address] [place] [id number] Sep, [place] [address] [place] [id number] [place] [phone] Sep, Bipolar I disorder, most rec ent episode (or current) mixed, moderate F31.62 [place] [address] [place] [id number] [address] [place] [phone] Aug, Chronic pain G89.29 [place] [address] [place] [id number] [address] [place] [phone] Aug, Generalized edema R60.1 [place] [address] [place] [id number] [address] [place] [phone] 18 Aug, 2017 [place] [address] [place] [id number] [address] [place] [phone] Aug, [place] [address] [place] [id number] [address] [place] [id number] 14 Aug, 2017 Bipolar I disorder, most rec ent episode (or current) mixed, moderate F31.62 [place] [address] [place] [id number] [address] [place] [id number] 07 Aug, 2017 Bipolar I disorder, most rec ent episode (or current) mixed, moderate F31.62 [place] [address] [place] [id number] [address] [place] [id number] 04 Aug, 2017 Chronic pain G89.29 [place] [address] [place] [id number] [address] [place] [id number] Jul, Bipolar I disorder, most rec ent episode (or current) mixed, moderate F31.62 [facility] [place] [address] [facility] [id number] [address] [place] [phone] Jul, Bipolar I disorder, most rec ent episode (or current) mixed, moderate F31.62 and BMI 60.0-69.9, adult Z68.44 [facility] [place] [address] [place] [id number] [address] [place] [id number] Jul, Bipolar I disorder, most rec ent episode (or current) mixed, moderate F31.62 [place] [address] [place] [id number] [address] [place] [address] Jul, Chronic pain G89.29 [facility] [place] [address] [place] [id number] [address] [place] [id number] Jul, Bipolar I disorder, most rec ent episode (or current) mixed, moderate F31.62 [place] [address] [place] [id number] [address] [place] [phone] Jun, Polyneuropathy associated wi th underlying disease G63 and Diabetes E11.9 [facility] [place] [address] [place] [id number] [address] [place] [id number] Jun, Bipolar I disorder, most rec ent episode (or current) mixed, moderate F31.62 [facility] [place] [address] [place] [id number] [address] [place] [phone] Jun, Chronic pain G89.29 [facility] [place] [address] [place] [id number] [address] [place] [id number] May, Bipolar I disorder, most rec ent episode (or current) mixed, moderate F31.62 [facility] [place] [address] [place] [id number] [address] [place] [id number] May, Bipolar I disorder, most rec ent episode (or current) mixed, moderate F31.62 [place] [address] [place] [id number] [address] [place] [id number] 20 May, 2017 Diabetic polyneuropathy asso ciated with type 2 diabetes mellitus E11.42 [facility] [place] [address] [id number] [address] [place] [id number] 18 May, 2017 Bipolar I disorder, most rec ent episode (or current) mixed, moderate F31.62 [facility] [place] [address] [facility] [id number] [address] [place] [id number] 13 May, 2017 Bipolar I disorder, most rec ent episode (or current) mixed, moderate F31.62 [facility] [place] [address] [facility] [id number] [address] [place] [id number] 12 May, 2017 Chronic pain G89.29 [facility] [place] [address] [facility] [id number] [address] [place] [id number] 30 Apr, 2017 Bipolar I disorder, most rec ent episode (or current) mixed, moderate F31.62 [facility] [place] [address] [facility] [id number] [address] [place] [id number] Apr, [facility] [place] [address] [id number] [address] [place] [phone] Apr, Chronic pain G89.29 and DM n euro manif type II E11.49 [facility] [place] [address] [facility] [id number] [address] [place] [phone] Apr, [facility] [place] [address] [id number] [address] [place] [id number] Apr, Bipolar I disorder, most rec ent episode (or current) mixed, moderate F31.62 [facility] [place] [address] [id number] [address] [place] [id number] 14 Apr, 2017 Chronic pain G89.29 [facility] [place] [address] [facility] [id number] [address] [place] [id number] Apr, Iliotibial band syndrome, le ft M76.32 [facility] [place] [address] [facility] [id number] [address] [place] [id number] Apr, Bipolar I disorder, most rec ent episode (or current) mixed, moderate F31.62 [facility] [place] [address] [id number] [address] [place] [phone] Mar, Bipolar I disorder, most rec ent episode (or current) mixed, moderate F31.62 [facility] [place] [address] [id number] [address] [place] [id number] Mar, Bipolar I disorder, most rec ent episode (or current) mixed, moderate F31.62 [facility] [place] [address] [id number] [address] [place] [id number] Mar, [facility] [place] [address] [id number] [address] [place] [id number] Mar, Bipolar I disorder, most rec ent episode (or current) mixed, moderate F31.62 [facility] [place] [address] [facility] [id number] [address] [place] [id number] Mar, Chronic pain G89.29 [facility] [place] [address] [id number] [address] [place] [id number] Mar, Bipolar I disorder, most rec ent episode (or current) mixed, moderate F31.62 [facility] [place] [address] [facility] [id number] [address] [place] [id number] Mar, Bipolar I disorder, most rec ent episode (or current) mixed, moderate F31.62 [facility] [place] [address] [facility] [id number] [address] [place] [id number] Mar, Acute pain of left knee M25. 562 ; Left hip pain M25.552 ; Generalized edema R60.1 and Tongue swelling R22.0 [facility] [place] [address] [facility] [id number] [address] [place] [id number] Mar, [facility] [place] [address] [facility] [id number] [address] [place] [phone] Feb, Chronic pain G89.29 [facility] [place] [address] [facility] [id number] [address] [place] [phone] Feb, Diabetes E11.9 [facility] [place] [address] [id number] [address] [place] [phone] January, Chronic pain G89.29 [facility] [place] [address] [id number] [address] [place] [id number] January, [facility] [place] [address] [facility] [id number] [address] [place] [id number] January, Bipolar I disorder, most rec ent episode (or current) mixed, moderate F31.62 [facility] [place] [address] [facility] [id number] [address] [place] [id number] Dec, Bipolar I disorder, most rec ent episode (or current) mixed, moderate F31.62 [place] [id number] [facility] [id number] [address] [place] [id number] Dec, Chronic pain G89.29 [facility] [place] [address] [facility] [id number] [address] [place] [id number] Dec, Bipolar I disorder, most rec ent episode (or current) mixed, moderate F31.62 [place] [address] [facility] [id number] [address] [place] [id number] Dec, Diabetes E11.9 ; Essential h ypertension I10 ; Chronic pain G89.29 and Morbid obesity E66.01 [facility] [place] [address] [facility] [id number] [address] [place] [id number] Dec, [facility] [place] [address] [facility] [id number] [address] [place] [id number] Dec, Bipolar I disorder, most rec ent episode (or current) mixed, moderate F31.62 [place] [address] [facility] [id number] [address] [place] [phone] Dec, Bipolar I disorder, most rec ent episode (or current) mixed, moderate F31.62 [place] [address] [facility] [id number] [address] [place] [id number] Nov, Chronic pain G89.29 [facility] [place] [address] [id number] [address] [place] [id number] Nov, Bipolar I disorder, most rec ent episode (or current) mixed, moderate F31.62 [facility] [place] [address] [id number] [address] [place] [id number] Nov, [facility] [place] [address] [id number] [address] [place] [phone] Nov, Bipolar I disorder, most rec ent episode (or current) mixed, moderate F31.62 [facility] [place] [address] [id number] [address] [place] [id number] Nov, Bipolar I disorder, most rec ent episode (or current) mixed, moderate F31.62 [facility] [place] [address] [id number] [address] [place] [phone] Nov, [facility] [place] [address] [id number] [address] [place] [id number] Nov, [facility] [place] [address] [id number] [address] [place] [phone] Nov, [facility] [place] [address] [id number] [address] [place] [phone] Oct, Chronic pain G89.29 [facility] [place] [address] [id number] [address] [place] [phone] Oct, Bipolar I disorder, most rec ent episode (or current) mixed, moderate F31.62 [facility] [place] [address] [id number] [address] [place] [phone] Oct, [facility] [place] [address] [facility] [id number] [address] [place] [phone] Oct, Chronic pain G89.29 ; Diabet es E11.9 ; Anxiety F41.9 and 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 [facility] [place] [address] [id number] [address] [place] [id number] Oct, [facility] [place] [address] [id number] [address] [place] [id number] Oct, Diabetes E11.9 [facility] [place] [address] [id number] [address] [place] [phone] Oct, Bipolar I disorder, most rec ent episode (or current) mixed, moderate F31.62 [facility] [place] [address] [id number] [address] [place] [id number] Sep, Chronic pain G89.29 [facility] [place] [address] [id number] [address] [place] [phone] Sep, Chronic pain G89.29 [facility] [place] [address] [id number] [address] [place] [phone] Aug, Chronic pain G89.29 [facility] [place] [address] [id number] [address] [place] [id number] Jul, [facility] [place] [address] [id number] [address] [place] [id number] Jul, Diabetes E11.9 [facility] [place] [address] [id number] [address] [place] [id number] Jul, Chronic pain G89.29 [facility] [place] [address] [id number] [address] [place] [id number] Jul, Bipolar I disorder, most rec ent episode (or current) mixed, moderate F31.62 [facility] [place] [address] [id number] [address] [place] [id number] Jun, Bipolar I disorder, most rec ent episode (or current) mixed, moderate F31.62 [facility] [place] [address] [id number] [address] [place] [id number] Jun, [facility] [place] [address] [facility] [id number] [address] [place] [id number] Jun, Bipolar I disorder, most rec ent episode (or current) mixed, moderate F31.62 [facility] [place] [address] [id number] [address] [place] [id number] 30 May, 2016 Insomnia, unspecified type G 47.00 [facility] [place] [address] [id number] [address] [place] [id number] 22 May, 2016 Bipolar I disorder, most rec ent episode (or current) mixed, moderate F31.62 [place] [address] [id number] [address] [place] [id number] 14 May, 2016 [place] [address] [facility] [id number] [address] [place] [phone] 08 May, 2016 Bipolar I disorder, most rec ent episode (or current) mixed, moderate F31.62 [place] [address] [facility] [id number] [address] [place] [phone] 06 May, 2016 Diabetes E11.9 and Essential hypertension I10 [place] [address] [facility] [id number] [address] [place] [phone] Apr, Chronic pain G89.29 [place] [address] [facility] [id number] [address] [place] [id number] Apr, Bipolar I disorder, most rec ent episode (or current) mixed, moderate F31.62 [place] [address] [facility] [id number] [address] [place] [id number] Apr, [place] [address] [facility] [id number] [address] [place] [phone] Apr, [place] [address] [facility] [id number] [address] [place] [id number] Mar, Chronic pain G89.29 ; Headac he, unspecified headache type R51 ; Neuropathy G62.9 ; Pain of right hip joint M25.551 and Essential hypertension I10 [place] [id number] [facility] [id number] [address] [place] [address] Mar, Chronic pain G89.29 [place] [address] [facility] [id number] [address] [place] [address] Mar, Bipolar I disorder, most rec ent episode (or current) mixed, moderate F31.62 [facility] [address] [facility] [id number] [address] [place] [address] Feb, Bipolar I disorder, most rec ent episode (or current) mixed, moderate F31.62 and Insomnia, unspecified type G47.00 [facility] [address] [facility] [id number] [address] [place] [id number] Feb, Chronic pain G89.29 [facility] [address] [facility] [id number] [address] [place] [address] Feb, Bipolar I disorder, most rec ent episode (or current) mixed, moderate F31.62 [facility] [place] [address] [facility] [id number] [address] [place] [address] January, Bipolar I disorder, most rec ent episode (or current) mixed, moderate F31.62 [facility] [address] [facility] [id number] [address] [place] [id number] January, Chronic pain G89.29 [facility] [place] [address] [facility] [id number] [address] [place] [address] January, Chronic pain G89.29 and Esse ntial hypertension I10 [facility] [place] [address] [facility] [id number] [address] [place] [id number] January, Bipolar I disorder, most rec ent episode (or current) mixed, moderate F31.62 [facility] [place] [address] [facility] [id number] [address] [place] [id number] Dec, [facility] [place] [address] [facility] [id number] [address] [place] [id number] Dec, [facility] [address] [facility] [id number] [address] [place] [id number] Dec, [facility] [place] [address] [facility] [id number] [address] [place] [id number] Dec, [place] [address] [id number] Nov, Reactive airway disease J45. 909 [facility] [place] [address] [id number] Nov, [facility] [place] [address] [id number] Nov, [facility] [place] [address] [address] Nov, [place] [address] [id number] Nov, [place] [address] [address] Nov, Onychomycosis B35.1 ; Hammer toe M20.40 ; [place] or callus L84 and DM neuro manif type II E11.49 [place] [address] [id number] Nov, Chronic pain G89.29 ; Leukoc ytosis D72.829 and Diabetes E11.9 [place] [address] [address] Nov, [place] [address] [address] Oct, Bronchitis J40 [place] [address] [id number] Oct, [place] [address] [address] Oct, [place] [address] [address] Oct, Mastoiditis, unspecified lat erality H70.90 and Type 2 diabetes mellitus with complication E11.8 [place] [address] [address] Sep, [facility] [place] [address] [facility] [id number] [address] [place] [address] Sep, Dysuria R30.0 ; Cough R05 ; Benign prostatic hyperplasia with lower urinary tract symptoms, unspecified morphology N40.1 ; Hypokalemia E87.6 and Eustachian tube dysfunction, unspecified laterality H69.80 [facility] [place] [address] [facility] [id number] [address] [place] [address] Sep, Moderate mixed bipolar I dis order F31.62 [facility] [place] [address] [facility] [id number] [address] [place] [address] Sep, Hypokalemia E87.6 [facility] [place] [address] [facility] [id number] [address] [place] [id number] Sep, [facility] [place] [address] [facility] [id number] [address] [place] [address] Sep, Upper respiratory tract infe ction, unspecified type J06.9 [facility] [place] [address] [facility] [id number] [address] [place] [id number] Aug, [facility] [place] [address] [facility] [id number] [address] [place] [address] Aug, Dysuria R30.0 [facility] [place] [address] [facility] [id number] [address] [place] [id number] Aug, [facility] [place] [address] [facility] [id number] [address] [place] [id number] Jul, [facility] [place] [address] [facility] [id number] [address] [place] [address] Jul, [facility] [place] [address] [facility] [id number] [address] [place] [id number] Jul, [facility] [place] [address] [facility] [id number] [address] [place] [address] Jul, [facility] [place] [address] [facility] [id number] [address] [place] [address] Jun, [facility] [place] [address] [id number] [address] [place] [id number] Jun, [facility] [place] [address] [facility] [id number] [address] [place] [id number] Jun, [facility] [place] [address] [facility] [id number] [address] [place] [id number] May, [facility] [place] [address] [id number] [address] [place] [address] May, Bipolar I disorder, most rec ent episode (or current) mixed, moderate 296.62 [facility] [place] [address] [facility] [id number] [address] [place] [address] May, [facility] [place] [address] [facility] [id number] [address] [place] [id number] May, Bipolar I disorder, most rec ent episode (or current) mixed, moderate 296.62 and Major depressive disorder, recurrent episode, severe, specified as with psychotic behavior 296.34 [facility] [place] [address] [id number] [address] [place] [id number] May, Bipolar I disorder, most rec ent episode (or current) mixed, moderate 296.62 [facility] [place] [address] [facility] [id number] [address] [place] [id number] May, [facility] [place] [address] [facility] [id number] [address] [place] [id number] Apr, [facility] [place] [address] [id number] [address] [place] [address] Apr, [facility] [place] [address] [facility] [id number] [address] [place] [address] Apr, Unspecified disorder of kidn ey and ureter 593.9 and Diabetes mellitus type 2, uncontrolled 250.02 [facility] [place] [address] [facility] [id number] [address] [place] [address] Apr, [facility] [place] [address] [facility] [id number] [address] [place] [id number] Apr, [facility] [place] [address] [facility] [id number] [address] [place] [id number] Apr, [facility] [place] [address] [facility] [id number] [address] [place] [id number] Apr, [facility] [place] [address] [facility] [id number] [address] [place] [address] Apr, Diabetes mellitus type II, u ncontrolled 250.02 [facility] [place] [address] [facility] [id number] [address] [place] [id number] Apr, [facility] [place] [address] [place] [id number] [address] [place] [id number] Mar, [facility] [place] [address] [place] [id number] [address] [place] [id number] Mar, [facility] [place] [address] [place] [id number] [address] [place] [id number] Mar, [facility] [place] [address] [place] [id number] [address] [place] [id number] Mar, Major depressive disorder, r ecurrent episode, severe, specified as with psychotic behavior 296.34 and Bipolar I disorder, most recent episode (or current) mixed, moderate 296.62 [facility] [place] [address] [place] [id number] [address] [place] [address] Mar, Diabetes 250.00 ; Anuria 788 .5 ; Nausea and vomiting 787.01 and Diarrhea 787.91 [facility] [place] [address] [facility] [id number] [address] [place] [address] Mar, Diabetes 250.00 [facility] [place] [address] [place] [id number] [address] [place] [id number] Mar, [facility] [place] [address] [place] [id number] [address] [place] [address] Mar, Diabetes 250.00 [facility] [place] [address] [place] [id number] [address] [place] [id number] Mar, [facility] [place] [address] [address] Mar, [facility] [place] [address] [address] Mar, [facility] [place] [address] [address] Mar, [facility] [place] [address] [address] Mar, Bipolar I disorder, most rec ent episode (or current) mixed, moderate 296.62 and Major depressive disorder, recurrent episode, severe, specified as with psychotic behavior 296.34 [facility] [place] [address] [address] Mar, Magnesium deficiency 275.2 ; Hypokalemia 276.8 ; Nausea & vomiting 787.01 and Diabetes mellitus type 2, uncontrolled 250.02 [facility] [place] [address] [address] Feb, [facility] [place] [address] [id number] Feb, Bipolar I disorder, most rec ent episode (or current) mixed, moderate 296.62 [facility] [place] [address] [id number] Feb, Nausea and vomiting 787.01 ; Left elbow pain 719.42 ; Anuria 788.5 and Diabetes 250.00 [facility] [place] [address] [address] Feb, [facility] [place] [address] [id number] Feb, Hypopotassemia 276.8 and Hyp okalemia 276.8 [facility] [place] [address] [address] Feb, Hypopotassemia 276.8 and Hyp okalemia 276.8 [facility] [place] [address] [id number] [address] [place] [id number] Feb, Seborrheic keratoses 702.19 [facility] [place] [address] [id number] [address] [place] [id number] Feb, Hypopotassemia 276.8 and Low magnesium levels 275.2 [facility] [place] [address] [id number] [address] [place] [id number] January, [facility] [place] [address] [id number] [address] [place] [id number] January, [facility] [place] [address] [id number] [address] [place] [id number] January, [facility] [place] [address] [id number] [address] [place] [id number] January, Scalp lesion 709.9 [facility] [place] [address] [id number] [address] [place] [id number] January, [facility] [place] [address] [id number] [address] [place] [phone] Dec, Tear of medial cartilage or meniscus of knee, current 836.0 and Chondromalacia 733.92 [facility] [place] [address] [id number] [address] [place] [id number] Dec, [facility] [place] [address] [id number] [address] [place] [id number] Dec, [facility] [place] [address] [id number] [address] [place] [id number] Dec, Squamous cell carcinoma, 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 [facility] [place] [address] [id number] [address] [place] [id number] 14 Dec, 2014 [facility] [place] [address] [id number] [address] [place] [id number] Dec, [facility] [address] [id number] [address] [place] [address], [place] [address] Nov, [facility] [address] [id number] [address] [place] [address], [place] [address] Nov, [facility] [address] [id number] [address] [place] [address], [place] [id number] Nov, [facility] [address] [id number] [address] [place] [address], [place] [address] Nov, [facility] [address] [id number] [address] [place] [address], [place] [address] Nov, [facility] [address] [id number] [address] [place] [address], [place] [id number] Nov, [facility] [address] [id number] [address] [place] [address], [place] [id number] Nov, [facility] [address] [id number] [address] [place] [address], [place] [address] Nov, [facility] [address] [id number] [address] [place] [address], [place] [address] Nov, [facility] [address] [id number] [address] [place] [address], [place] [address] Nov, [facility] [address] [id number] [address] [place] [address], [place] [address] Nov, [facility] [address] [id number] [address] [place] [address], [place] [address] Nov, [facility] [address] [id number] [address] [place] [address], [place] [address] Oct, [facility] [address] [id number] [address] [place] [address], [place] [id number] Oct, [facility] [address] [id number] [address] [place] [address], [place] [id number] Oct, [facility] [address] [id number] [address] [place] [address], [place] [address] Oct, [facility] [address] [id number] [address] [place] [address], [place] [address] Oct, [facility] [address] [id number] [address] [place] [address], [place] [address] Oct, [facility] [address] [id number] [address] [place] [address], [place] [address] Oct, [facility] [address] [id number] [address] [place] [address], [place] [address] Oct, [facility] [address] [id number] [address] [place] [address], [place] [address] Oct, [facility] [address] [id number] [address] [place] [address], [place] [address] Sep, [facility] [address] [id number] [address] [place] [address], [place] [id number] Sep, [facility] [address] [id number] [address] [place] [address], [place] [address] Sep, [facility] [address] [id number] [address] [place] [address], [place] [address] Sep, [facility] [address] [id number] [address] [place] [address], [place] [address] Sep, [facility] [address] [id number] [address] [place] [address], [place] [address] Sep, [facility] [address] [id number] [address] [place] [address], [place] [id number] Sep, [facility] [address] [id number] [address] [place] [address], [place] [address] Sep, [facility] [address] [id number] [address] [place] [address], [place] [id number] Sep, [facility] [address] [id number] [address] [place] [address], [place] [address] Sep, [facility] [address] [id number] [address] [place] [address], [place] [id number] 08 Sep, 2014 [facility] [address] [id number] [address] [place] [address], [place] [id number] Sep, [facility] [address] [id number] [address] [place] [address], [place] [id number] Sep, [facility] [address] [id number] [address] [place] [address], [place] [address] Sep, [facility] [address] [id number] [address] [place] [address], [place] [id number] Sep, [facility] [address] [id number] [address] [place] [address], [place] [address] Sep, [facility] [address] [id number] [address] [place] [address], [place] [address] Aug, [facility] [address] [id number] [address] [place] [address], [place] [id number] Aug, [facility] [address] [id number] [address] [place] [address], [place] [id number] Aug, [facility] [address] [id number] [address] [place] [address], [place] [address] Aug, [facility] [address] [id number] [address] [place] [address], [place] [id number] Aug, [facility] [address] [id number] [address] [place] [address], [place] [address] Aug, [facility] [address] [id number] [address] [place] [address], [place] [address] Aug, [facility] [address] [id number] [address] [place] [address], [place] [address] Aug, [facility] [address] [id number] [address] [place] [address], [place] [address] Aug, [facility] [address] [id number] [address] [place] [address], [place] [address] Aug, [facility] [address] [id number] [facility] [place] [address] Aug, [facility] [id number] Aug, [facility] [address] [id number] [facility] [place] [address] Aug, [facility] [address] [id number] [address] [place] [address] Aug, [facility] [address] [id number] [address] [place] [address] Aug, [facility] [address] [id number] [address] [place] [address], [place] [id number] Aug, [facility] [address] [id number] [address] [place] [address] Aug, [facility] [address] [id number] [address] [place] [address], [place] [id number] Aug, [facility] [address] [id number] [address] [place] [address], [place] [id number] Aug, [facility] [address] [id number] [address] [place] [address], [place] [id number] Aug, [facility] [address] [id number] [address] [place] [address], [place] [id number] Aug, [facility] [address] [id number] [address] [place] [address], [place] [id number] Aug, [facility] [address] [id number] [address] [place] [address], [place] [id number] Aug, [facility] [address] [id number] [address] [place] [address], [place] [id number] Aug, [facility] [address] [id number] [address] [place] [address], [place] [id number] Aug, [facility] [address] [id number] [address] [place] [address], [place] [id number] Aug, [facility] [address] [id number] [address] [place] [address], [place] [id number] Aug, [facility] [address] [id number] [address] [place] [address], [place] [id number] Aug, [facility] [address] [id number] [address] [place] [address], [place] [id number] Aug, [facility] [address] [id number] [address] [place] [address], [place] [id number] Aug, [facility] [address] [id number] [address] [place] [address], [place] [id number] Jul, [facility] [address] [id number] [address] [place] [address], [place] [id number] Jul, [facility] [address] [id number] [address] [place] [address], [place] [id number] Jul, [facility] [address] [id number] [address] [place] [address], [place] [id number] Jul, [facility] [address] [id number] [address] [place] [address], [place] [id number] Jul, [facility] [address] [id number] [address] [place] [address], [place] [id number] Jul, [facility] [address] [id number] [address] [place] [address], [place] [id number] Jul, [facility] [address] [id number] [address] [place] [address], [place] [id number] Jul, [facility] [address] [id number] [address] [place] [address], [place] [id number] Jul, [facility] [address] [id number] [address] [place] [address], [place] [id number] Jul, [facility] [address] [id number] [address] [place] [address], [place] [id number] Jun, [facility] [address] [id number] [address] [place] [address], [place] [id number] 22 Jun, 2014 [facility] [address] [id number] [address] [place] [address], [place] [id number] 16 Jun, 2014 [facility] [address] [id number] [address] [place] [address], [place] [id number] 16 Jun, 2014 [facility] [address] [id number] [address] [place] [address], [place] [id number] 15 Jun, 2014 [facility] [address] [id number] [address] [place] [address], [place] [id number] 15 Jun, 2014 [facility] [address] [id number] [address] [place] [address], [place] [address] Jun, [facility] [address] [id number] [address] [place] [address], [place] [id number] Jun, [facility] [address] [id number] [address] [place] [address], [place] [id number] Jun, [facility] [address] [id number] [address] [place] [address], [place] [address] Jun, [facility] [address] [id number] [address] [place] [address], [place] [address] 29 May, 2013 [facility] [address] [id number] [address] [place] [address], [place] [address] 29 Sep, 2013 [facility] [address] [id number] [address] [place] [address], [place] [address] 26 Sep, 2013 [facility] [address] [id number] [address] [place] [address], [place] [address] 26 Sep, 2013 [facility] [address] [id number] [address] [place] [address], [place] [address] 17 Sep, 2013 [facility] [address] [id number] [address] [place] [address], [place] [address] 17 Sep, 2013 [facility] [address] [id number] [address] [place] [address], [place] [address] 15 May, 2013 [facility] [address] [id number] [facility] [place] [address] 15 May, 2013 [facility] [place] [address] [id number] [address] [place] [address], [place] [address] 15 May, 2013 [facility] [address] [id number] [address] [place] [address], [place] [address] 15 May, 2013 [facility] [place] [address] [id number] [address] [place] [address], [place] [address] 10 May, 2013 [facility] [place] [address] [id number] [address] [place] [address], [place] [address] 10 May, 2013 [facility] [place] [address] [id number] [address] [place] [address], [place] [address] May, 2013 [facility] [address] [id number] [address] [place] [address], [place] [address] May, 2013 [facility] [address] [id number] [address] [place] [address], [place] [address] May, 2013 [facility] [address] [id number] [address] [place] [address], [place] [address] May, [facility] [address] [id number] [address] [place] [address], [place] [address] Apr, [facility] [place] [address] [id number] [address] [place] [address], [place] [address] Apr, [facility] [place] [address] [id number] [address] [place] [address], [place] [address] Apr, [facility] [place] [address] [id number] [address] [place] [address], [place] [address] Apr, [facility] [address] [id number] [address] [place] [address], [place] [address] Apr, [facility] [address] [id number] [address] [place] [address], [place] [address] Apr, [facility] [address] [id number] [address] [place] [address], [place] [address] Apr, [facility] [address] [id number] [facility] [place] [address] Apr, [facility] [address] [id number] [address] [place] [address], [place] [address] Apr, [facility] [address] [id number] [address] [place] [address], [place] [address] Apr, [facility] [address] [id number] [address] [place] [address], [place] [address] Apr, [facility] [address] [id number] [address] [place] [address], [place] [address] Apr, [facility] [address] [id number] [address] [place] [address], [place] [address] Apr, [facility] [address] [id number] [address] [place] [address], [place] [address] Apr, [facility] [address] [id number] [address] [place] [address], [place] [address] Apr, [facility] [address] [id number] [address] [place] [address], [place] [address] Mar, [facility] [address] [id number] [address] [place] [address], [place] [address] Mar, [facility] [place] [facility] [address] [id number] [address] [place] [address], [place] [address] Mar, [facility] [place] [address] [id number] [address] [place] [address], [place] [address] Mar, [facility] [address] [id number] [address] [place] [address], [place] [address] Mar, [facility] [place] [address] [id number] [address] [place] [address], [place] [address] Mar, [facility] [address] [id number] [address] [place] [address], [place] [address] Mar, [facility] [place] [address] [id number] [facility] [place] [address] Mar, 2013 [facility] [place] [address] [id number] [facility] [place] [address] Mar, 2013 [facility] [place] [address] [id number] [address] [place] [address], [place] [address] Mar, 2013 [facility] [place] [address] [id number] [address] [place] [address], [place] [address] Mar, 2013 [facility] [place] [address] [id number] [address] [place] [address], [place] [address] Mar, 2013 [facility] [place] [address] [id number] [address] [place] [address], [place] [address] Mar, 2013 [facility] [place] [address] [id number] [address] [place] [address], [place] [address] Mar, 2013 [facility] [place] [address] [id number] [address] [place] [address], [place] [address] Mar, 2013 [facility] [place] [address] [id number] [address] [place] [address], [place] [address] Mar, 2013 [facility] [address] [id number] [address] [place] [address], [place] [address] Mar, [facility] [address] [id number] [address] [place] [address], [place] [address] Mar, [facility] [address] [id number] [address] [place] [address], [place] [address] Feb, [facility] [place] [address] [id number] [address] [place] [address], [place] [address] Feb, [facility] [address] [id number] [address] [place] [address], [place] [address] Feb, [facility] [place] [facility] [address] [id number] [address] [place] [address], [place] [address] Feb, [facility] [address] [id number] [address] [place] [address], [place] [address] Feb, [facility] [address] [id number] [facility] [place] [address] Feb, [facility] [address] [id number] [facility] [place] [address] Feb, [facility] [address] [id number] [facility] [place] [address] Feb, [facility] [address] [id number] [facility] [place] [address] Feb, [facility] [address] [id number] [facility] [place] [address] Feb, [facility] [place] [address] [id number] [address] [place] [address], [place] [address] Feb, [facility] [address] [id number] [facility] [place] [address] Feb, [facility] [place] [address] [id number] [address] [place] [address], [place] [address] Feb, [facility] [address] [id number] [address] [place] [address], [place] [address] Feb, [facility] [place] [address] [id number] [address] [place] [address], [place] [address] January, [facility] [place] [address] [id number] [address] [place] [address], [place] [address] January, [facility] [place] [address] [id number] [address] [place] [address], [place] [address] January, [facility] [address] [id number] [facility] [place] [address] January, [facility] [place] [address] [id number] [address] [place] [address], [place] [address] January, [facility] [place] [facility] [address] [id number] [facility] [place] [address] January, [facility] [place] [facility] [address] [id number] [address] [address] January, [facility] [address] [id number] [address] [place] [address], [place] [address] January, [facility] [address] [id number] [address] [place] [address], [place] [address] January, [facility] [address] [id number] [address] [place] [address], [place] [address] January, [facility] [address] [id number] [address] [place] [address], [place] [address] January, [facility] [address] [id number] [address] [place] [address], [place] [address] January, [facility] [address] [id number] [address] [place] [address], [place] [address] January, [facility] [address] [id number] [address] [place] [address], [place] [address] January, [facility] [address] [id number] [address] [place] [address], [place] [address] Dec, [facility] [address] [id number] [address] [place] [address], [place] [address] Dec, [facility] [address] [id number] [address] [place] [address], [place] [address] Dec, [facility] [address] [id number] [address] [place] [address], [place] [address] Dec, [facility] [address] [id number] [address] [place] [address], [place] [address] Dec, [facility] [address] [id number] [address] [place] [address], [place] [address] Dec, [facility] [address] [id number] [address] [place] [address], [place] [address] Dec, [facility] [address] [id number] [address] [place] [address], [place] [address] Dec, [facility] [address] [id number] [facility] [place] [address] Dec, [facility] [address] [id number] [address] [place] [address], [place] [address] Dec, [facility] [address] [id number] [facility] [place] [address] Nov, [facility] [address] [id number] [address] [place] [address], [place] [address] Nov, [facility] [address] [id number] [address] [place] [address], [place] [address] Nov, [facility] [address] [id number] [address] [place] [address], [place] [address] Nov, [facility] [address] [id number] [address] [place] [address], [place] [address] Nov, [facility] [address] [id number] [address] [place] [address], [place] [address] Nov, [facility] [address] [id number] [address] [place] [address], [place] [address] Nov, [facility] [address] [id number] [address] [place] [address], [place] [address] Nov, [facility] [address] [id number] [address] [place] [address], [place] [address] Nov, [facility] [address] [id number] [address] [place] [address], [place] [address] Nov, [facility] [address] [id number] [address] [place] [address], [place] [address] Oct, [facility] [address] [id number] [address] [place] [address], [place] [address] Oct, [facility] [address] [id number] [address] [place] [address], [place] [address] Oct, [facility] [address] [id number] [address] [place] [address], [place] [address] Oct, [facility] [address] [id number] [address] [place] [address], [place] [address] Oct, [facility] [address] [id number] [address] [place] [address], [place] [address] Oct, [facility] [address] [id number] [address] [place] [address], [place] [address] Oct, [facility] [address] [id number] [address] [place] [address], [place] [address] Oct, [facility] [address] [id number] [address] [place] [address], [place] [address] Oct, [facility] [address] [id number] [address] [place] [address], [place] [address] Oct, [facility] [address] [id number] [address] [place] [address], [place] [address] Oct, [facility] [address] [id number] [address] [place] [address], [place] [address] Oct, [facility] [address] [id number] [address] [place] [address], [place] [address] Oct, [facility] [address] [id number] [address] [place] [address], [place] [address] Oct, [facility] [address] [id number] [address] [place] [address], [place] [address] Sep, [facility] [address] [id number] [address] [place] [address], [place] [address] Sep, [facility] [place] [address] [id number] [address] [place] [address], [place] [address] Sep, [facility] [address] [id number] [address] [place] [address], [place] [address] Sep, [facility] [address] [id number] [address] [place] [address], [place] [address] Sep, [facility] [address] [id number] [address] [place] [address], [place] [address] 14 Sep, 2013 [facility] [address] [id number] [address] [place] [address], [place] [address] 14 Sep, 2013 [facility] [address] [id number] [address] [place] [address], [place] [address] 14 Sep, 2013 [facility] [address] [id number] [address] [place] [address], [place] [address] Sep, [facility] [address] [id number] [address] [place] [address], [place] [address] Sep, [facility] [address] [id number] [address] [place] [address], [place] [address] Aug, [facility] [address] [id number] [address] [place] [address], [place] [address] Aug, [facility] [address] [id number] [address] [place] [address], [place] [address] Jul, [facility] [address] [id number] [address] [place] [address], [place] [address] Jul, [facility] [address] [id number] [address] [place] [address], [place] [id number] Jul, [facility] [address] [id number] [address] [place] [address], [place] [address] Jul, [facility] [address] [id number] [address] [place] [address], [place] [address] Jul, [facility] [address] [id number] [address] [place] [address], [place] [address] Jul, [facility] [address] [id number] [address] [place] [address], [place] [address] Jul, [facility] [address] [id number] [address] [place] [address], [place] [address] Jul, [facility] [address] [id number] [address] [place] [address], [place] [id number] 08 Jul, 2012 [facility] [address] [id number] [address] [place] [address], [place] [id number] 08 Jul, 2012 [facility] [address] [id number] [address] [place] [address], [place] [address] Jul, 2012 [facility] [address] [id number] [address] [place] [address], [place] [address] Jul, 2012 [facility] [address] [id number] [address] [place] [address], [place] [address] Jul, 2012 [facility] [address] [id number] [address] [place] [address], [place] [address] Jul, 2012 [facility] [address] [id number] [address] [place] [address], [place] [address] Jul, 2012 [facility] [address] [id number] [address] [place] [address], [place] [address] Jul, 2012 [facility] [address] [id number] [address] [place] [address], [place] [address] Jul, [facility] [address] [id number] [address] [place] [address], [place] [address] Jul, [facility] [address] [id number] [address] [place] [address], [place] [address] Jul, [facility] [address] [id number] [address] [place] [address], [place] [address] Jun, 2012 [facility] [address] [id number] [address] [place] [id number] Jun, 2012 [facility] [address] [id number] [address] [place] [address], [place] [address] Jun, 2012 [facility] [address] [id number] [address] [place] [address], [place] [address] Jun, 2012 [facility] [address] [id number] [address] [place] [id number] Jun2012 [facility] [address] [id number] [address] [place] [address], [place] [address] 16 Jun, 2013 [facility] [address] [id number] [address] [place] [address], [place] [address] Jun, [facility] [address] [id number] [address] [place] [address], [place] [address] 10 Jun, 2013 [facility] [address] [id number] [address] [place] [address], [place] [address] Jun, [facility] [address] [id number] [address] [place] [address], [place] [address] Jun, [facility] [address] [id number] [address] [place] [address], [place] [address] Jun, [facility] [address] [id number] [address] [place] [address], [place] [address] 26 May, 2012 [facility] [address] [id number] [address] [place] [address], [place] [id number] 25 May, 2012 [facility] [address] [id number] [address] [place] [address], [place] [id number] 19 May, 2012 [facility] [address] [id number] [address] [place] [address], [place] [id number] 17 May, 2012 [facility] [address] [id number] [address] [place] [address], [place] [id number] 11 May, 2012 [facility] [address] [id number] [address] [place] [address], [place] [id number] 10 May, 2012 [facility] [address] [id number] [address] [place] [address], [place] [id number] 09 May, 2012 [facility] [address] [id number] [address] [place] [address], [place] [address] 05 May, 2012 [facility] [address] [id number] [address] [place] [address], [place] [id number] 30 Apr, 2013 [facility] [address] [id number] [address] [place] [address], [place] [address] Apr, [facility] [address] [id number] [address] [place] [address], [place] [address] Apr, [facility] [address] [id number] [address] [place] [address], [place] [address] Apr, [facility] [address] [id number] [address] [place] [address], [place] [id number] Apr, [facility] [address] [id number] [address] [place] [address], [place] [id number] Mar, [facility] [address] [id number] [address] [place] [address], [place] [id number] Mar, [facility] [address] [id number] [address] [place] [address], [place] [id number] Mar, [facility] [address] [id number] [address] [place] [address], [place] [id number] Mar, [facility] [address] [id number] [address] [place] [address], [place] [id number] Mar, [facility] [address] [id number] [address] [place] [address], [place] [id number] Mar, [facility] [address] [id number] [address] [place] [address], [place] [id number] Mar, [facility] [address] [id number] [address] [place] [address], [place] [id number] Mar, [facility] [address] [id number] [address] [place] [address], [place] [id number] Feb, [facility] [address] [id number] [address] [place] [address], [place] [id number] Feb, [facility] [address] [id number] [address] [place] [address], [place] [id number] January, [facility] [address] [id number] [address] [place] [address], [place] [id number] January, [facility] [address] [id number] [address] [place] [address], [place] [id number] 10 Dec, 2012 [facility] [address] [id number] [address] [place] [address], [place] [id number] 09 Dec, 2012 [facility] [address] [id number] [address] [place] [address], [place] [id number] 23 Nov, 2012 [facility] [address] [id number] [address] [place] [address], [place] [id number] Nov, [facility] [address] [id number] [address] [place] [address], [place] [id number] Nov, [facility] [address] [id number] [address] [place] [address], [place] [id number] Nov, [facility] [address] [id number] [address] [place] [address], [place] [id number] 27 Oct, 2012 [facility] [address] [id number] [address] [place] [address], [place] [id number] 26 Oct, 2012 [facility] [address] [id number] [address] [place] [address], [place] [id number] 26 Oct, 2012 [facility] [address] [id number] [address] [place] [address], [place] [id number] 26 Oct, 2012 [facility] [address] [id number] [address] [place] [address], [place] [id number] 16 Oct, 2012 [facility] [address] [id number] [address] [place] [address], [place] [id number] 14 Oct, 2012 [facility] [address] [id number] [address] [place] [address], [place] [id number] 08 Oct, 2012 [facility] [address] [id number] [address] [place] [address], [place] [id number] 07 Oct, 2012 [facility] [address] [id number] [address] [place] [address], [place] [id number] 03 Oct, 2012 [facility] [address] [id number] [address] [place] [address], [place] [id number] 30 Sep, 2012 [facility] [address] [id number] [address] [place] [address], [place] [id number] Sep, [facility] [address] [id number] [address] [place] [address], [place] [id number] Sep, [facility] [address] [id number] [address] [place] [address], [place] [id number] Sep, [facility] [address] [id number] [address] [place] [address], [place] [id number] Sep, [facility] [address] [id number] [address] [place] [address], [place] [id number] Sep, [facility] [address] [id number] [address] [place] [address], [place] [id number] Sep, [facility] [address] [id number] [address] [place] [address], [place] [id number] Sep, [facility] [address] [id number] [address] [place] [address], [place] [id number] 31 Aug, 2012 [facility] [address] [id number] [address] [place] [address], [place] [id number] 31 Aug, 2012 [facility] [address] [id number] [address] [place] [address], [place] [id number] Aug, [facility] [address] [id number] [address] [place] [address], [place] [id number] Aug, [facility] [address] [id number] [address] [place] [address], [place] [id number] Aug, [facility] [address] [id number] [address] [place] [address], [place] [id number] Aug, [facility] [address] [id number] [address] [place] [address], [place] [id number] Aug, [facility] [address] [id number] [address] [place] [address], [place] [id number] Aug, [facility] [address] [id number] [address] [place] [address], [place] [id number] Jul, [facility] [address] [id number] [address] [place] [address], [place] [id number] Jul, [facility] [address] [id number] [address] [place] [address], [place] [id number] Jul, [facility] [address] [id number] [address] [place] [address], [place] [id number] Jul, [facility] [address] [id number] [address] [place] [address], [place] [id number] Jul, [facility] [address] [id number] [address] [place] [address], [place] [id number] Jul, [facility] [address] [id number] [address] [place] [address], [place] [id number] Jun, [facility] [address] [id number] [address] [place] [address], [place] [id number] Jun, [facility] [address] [id number] [address] [place] [address], [place] [id number] Jun, [facility] [address] [id number] [address] [place] [address], [place] [address] Jun, [facility] [address] [id number] [address] [place] [address], [place] [address] Jun, [facility] [address] [id number] [address] [place] [address], [place] [id number] Jun, [facility] [address] [id number] [address] [place] [address], [place] [id number] Jun, [facility] [address] [id number] [address] [place] [address], [place] [id number] Jun, [facility] [address] [id number] [address] [place] [address], [place] [id number] Jun, [facility] [address] [id number] [address] [place] [address], [place] [address] May, [facility] [address] [id number] [address] [place] [address], [place] [address] May, [facility] [address] [id number] [address] [place] [address], [place] [address] May, [facility] [address] [id number] [address] [place] [address], [place] [address] Apr, [facility] [address] [id number] [address] [place] [address], [place] [id number] Apr, [facility] [address] [id number] [address] [place] [address], [place] [address] Apr, [facility] [address] [id number] [address] [place] [address], [place] [address] Apr, [facility] [address] [id number] [address] [place] [address], [place] [id number] Apr, [facility] [address] [id number] [address] [place] [address], [place] [address] Apr, [facility] [address] [id number] [address] [place] [address], [place] [address] Mar, [facility] [address] [id number] [address] [place] [address], [place] [address] Mar, [facility] [address] [id number] [address] [place] [address], [place] [id number] Mar, [facility] [address] [id number] [address] [place] [address], [place] [id number] Mar, [facility] [address] [id number] [address] [place] [address], [place] [id number] Feb, [facility] [address] [id number] [address] [place] [address], [place] [id number] Feb, [facility] [address] [id number] [address] [place] [address], [place] [id number] Feb, [facility] [address] [id number] [address] [place] [address], [place] [id number] Feb, [facility] [address] [id number] [address] [place] [address], [place] [address] Feb, [facility] [address] [id number] [address] [place] [address], [place] [id number] January, [facility] [address] [id number] [address] [place] [address], [place] [id number] January, [facility] [address] [id number] [address] [place] [address], [place] [address] January, [facility] [address] [id number] [address] [place] [address], [place] [id number] January, [facility] [address] [id number] [address] [place] [address], [place] [id number] January, [facility] [address] [id number] [address] [place] [address], [place] [id number] January, [facility] [address] [id number] [address] [place] [address], [place] [id number] Dec, [facility] [address] [id number] [address] [place] [address], [place] [id number] Dec, [facility] [address] [id number] [address] [place] [address], [place] [id number] Dec, [facility] [address] [id number] [address] [place] [address], [place] [id number] Dec, [facility] [address] [id number] [address] [place] [address], [place] [id number] Dec, [facility] [address] [id number] [address] [place] [address], [place] [address] Nov, [facility] [address] [id number] [address] [place] [address], [place] [id number] Nov, [facility] [address] [id number] [address] [place] [address], [place] [address] Nov, [facility] [address] [id number] [address] [place] [address], [place] [id number] Nov, [facility] [address] [id number] [address] [place] [address], [place] [id number] 29 Oct, 2011 [facility] [address] [id number] [address] [place] [address], [place] [id number] 28 Oct, 2011 [facility] [address] [id number] [address] [place] [address], [place] [id number] 24 Oct, 2011 [facility] [address] [id number] [address] [place] [address], [place] [id number] Oct, [facility] [address] [id number] [address] [place] [address], [place] [id number] Oct, [facility] [address] [id number] [address] [place] [address], [place] [id number] Sep, [facility] [address] [id number] [address] [place] [address], [place] [id number] Sep, [facility] [address] [id number] [address] [place] [address], [place] [id number] Sep, [facility] [address] [id number] [address] [place] [address], [place] [id number] Sep, [facility] [address] [id number] [address] [place] [address], [place] [address] Sep, [facility] [address] [id number] [address] [place] [address], [place] [address] Sep, [facility] [address] [id number] [address] [place] [address], [place] [address] Aug, [facility] [address] [id number] [address] [place] [address], [place] [id number] Aug, [facility] [address] [id number] [address] [place] [address], [place] [id number] Aug, [facility] [address] [id number] [address] [place] [address], [place] [address] Jul, [facility] [address] [id number] [address] [place] [address], [place] [id number] Jul, [facility] [address] [id number] [address] [place] [address], [place] [address] Jul, [facility] [address] [id number] [address] [place] [address], [place] [id number] Jul, [facility] [address] [id number] [address] [place] [address], [place] [id number] Jun, [facility] [address] [id number] [address] [place] [address], [place] [id number] Jun, [facility] [address] [id number] [address] [place] [address], [place] [address] Jun, [facility] [address] [id number] [address] [place] [address], [place] [address] Jun, [facility] [address] [id number] [address] [place] [address], [place] [id number] Jun, [facility] [address] [id number] [address] [place] [address], [place] [id number] Jun, [facility] [address] [id number] [address] [place] [address], [place] [address] Mar, [facility] [address] [id number] [address] [place] [address], [place] [id number] Dec, [facility] [address] [id number] [address] [place] [id number] Dec, [facility] [address] [id number] [address] [place] [address], [place] [address] Nov, [facility] [address] [id number] [address] [place] [address], [place] [id number] 16 Nov, 2010 [facility] [address] [id number] [address] [place] [address], [place] [address] Sep, [facility] [address] [id number] [address] [place] [address], [place] [id number] 31 Aug, 2010 [facility] [address] [id number] [address] [place] [address], [place] [id number] 29 Aug, 2010 [facility] [address] [id number] [address] [place] [address], [place] [id number] 29 Aug, 2010 [facility] [address] [id number] [address] [place] [address], [place] [id number] 29 Aug, 2010 [facility] [address] [id number] [address] [place] [address], [place] [id number] 27 Aug, 2010 [facility] [address] [id number] [address] [place] [address], [place] [id number] 14 Aug, 2010 [facility] [address] [id number] [address] [place] [address], [place] [id number] 08 Aug, 2010 [facility] [address] [id number] [address] [place] [address], [place] [id number] 08 Aug, 2010 [facility] [address] [id number] [address] [place] [address], [place] [id number] 07 Aug, 2010 [facility] [address] [id number] [address] [place] [address], [place] [id number] 06 Aug, 2010 [facility] [address] [id number] [address] [place] [address], [place] [id number] 06 Aug, 2010 [facility] [address] [id number] [address] [place] [address], [place] [id number] Aug, [facility] [address] [id number] [address] [place] [address], [place] [id number] 30 Jul, 2010 [facility] [address] [id number] [address] [place] [address], [place] [id number] 30 Jul, 2010 [facility] [address] [id number] [address] [place] [address], [place] [id number] 30 Jul, 2010 [facility] [address] [id number] [address] [place] [address], [place] [id number] Jul, [facility] [address] [id number] [address] [place] [address], [place] [id number] 08 Jul, 2010 [facility] [address] [id number] [address] [place] [address], [place] [id number] Jul, [facility] [address] [id number] [address] [place] [address], [place] [id number] 24 Jun, 2010 [facility] [address] [id number] [address] [place] [address], [place] [id number] Jun, [facility] [address] [id number] [address] [place] [address], [place] [id number] Jun, [facility] [address] [id number] [address] [place] [address], [place] [id number] Jun, [facility] [address] [id number] [address] [place] [address], [place] [address] Apr, [facility] [address] [id number] [address] [place] [address], [place] [id number] Mar, [facility] [address] [id number] [address] [place] [address], [place] [id number] Feb, [facility] [address] [id number] [address] [place] [id number] January, [facility] [address] [id number] [address] [place] [id number] 15 Dec, 2009 [facility] [address] [id number] [address] [place] [id number] Nov, [facility] [address] [id number] [address] [place] [address], [place] [id number] Aug, [facility] [address] [id number] [address] [place] [id number] Aug, [facility] [address] [id number] [address] [place] [id number] 07 Aug, 2009 [facility] [address] [id number] [address] [place] [id number] Jul, [facility] [address] [id number] [address] [place] [id number] Jul, [facility] [address] [id number] [address] [place] [id number] Jul, [facility] [address] [id number] [address] [place] [id number] Jun, [facility] [address] [id number] [address] [place] [id number] Jun, [facility] [address] [id number] [address] [place] [id number] Jun, [facility] [address] [id number] [address] [place] [id number] Jun, [facility] [address] [id number] [address] [place] [id number] Jun, [facility] [address] [id number] [address] [place] [id number] Jun, [facility] [address] [id number] [address] [place] [id number] Apr, [facility] [address] [id number] [address] [place] [id number] Apr, [facility] [address] [id number] [address] [place] [id number] Feb, [facility] [address] [id number] [address] [place] [id number] January, [facility] [address] [id number] [address] [place] [id number] Dec, IMMUNIZATIONS No Known Immunizations SOCIAL HISTORY [...] Medical History skin cancer-basal cell R islam (removed ) Medical History Arthritis Medical History [...] inability to urinate 09/16/15 Hospitalization History [facility] inpatient mental health ea rly 2000's Hospitalization History hyperkalemia 10/2017 Hospitalization History fluid in lung
--- OUTSIDE RECORDS SUMMARY | 2020-04-11 11:10 | XMS REPORT ---
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 Name Role Phone Migration, Doctor Unavailable Unavailable PROBLEMS Type Condition ICD9-CM Code STX63-GF Code Onset Dates Condition S tatus SNOMED Code Problem Bipolar I disorder, most recent episode (or curr ent) mixed, moderate F31.62 Active 25495104 Problem Anxiety F41.9 Active 10589069 Problem Insomnia, unspecified type G47.00 Act sharon 805233258 Problem Essential hypertension I10 Active 39733042 Problem Morbid obesity E66.01 Active 00058 6002 Problem Polyneuropathy associated with underlying disease G63 Active 176865549 Problem Diabetic polyneuropathy associated with type 2 d iabetes mellitus E11.42 Active 69738882 Problem Chronic diastolic (congestive) heart failure I50.3 2 Active 441220538 Problem Diabetes E11.9 Active 28066351 Problem Bipolar disorder F31.9 Active 137 41277 Problem Chronic pain G89.29 Active 0854318 1 Problem Reactive airway disease J45.909 Active 726166406675 Problem Leukocytosis D72.829 Active 2487292 06 Problem Falling R29.6 Active 145457950 Problem 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 Active 829504542 Problem Pure hypercholesterolemia E78.00 Acti ve 067794101 Problem Dysuria R30.0 Active 02155988 Problem Bipolar disorder, in partial remission, most rec ent episode depressed F31.75 Active 78409461 Problem Hypokalemia E87.6 Active 13587942 Problem Other iron deficiency anemia D50.8 A ctive 96028036 Problem Eustachian tube dysfunction, unspecified laterality H69.80 Active 25627691 Problem Primary osteoarthritis of right knee M17.11 Active 487121048222031 Problem Cough R05 Active 97869885 Problem Skin cancer C44.90 Active 50327188 7 Problem DM neuro manif type II E11.49 Active 38958412 Problem Mild cognitive impairment G31.84 Acti ve 464482553 Problem Benign prostatic hyperplasia with lower urinary tract symptoms, unspecified morphology N40.1 Active 47006 6007 Problem Psychophysiological insomnia F51.04 A ctive 094333006 Problem Type 2 diabetes mellitus with diabetic neuropathy, uns pecified E11.40 Active 26699092 Problem detention (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 Z79.4 Active 733714511 Problem PVD (peripheral vascular disease) I73.9 Active 053090331 Problem Retinal edema H35.81 Active 385138 6 Problem Chronic lymphocytic leukemia C91.10 A ctive 35274096 Problem Agitation R45.1 Active 718049159 Problem Bilateral primary osteoarthritis of knee M17.0 Active 936184340 Problem Eye exam abnormal R93.8 Active 16 0930021 Problem Anemia of chronic illness D63.8 Acti ve 631663716 Problem Lymphocytosis D72.820 Active 433281 09 Problem Mood disorder F39 Active 064961 05 Problem Bipolar I disorder, most recent episode depressed, moderat e F31.32 Active 669878559 Problem Pressure ulcer of other site, stage 3 L89.893 Active 082624486 Problem Gastroesophageal reflux disease without esophagitis K21.9 Active 712662880 Problem Other secondary acute gout, 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 0 Active 307124788 ALLERGIES No Information ENCOUNTERS Encounter Location Date Diagnosis [facility], [place] [address] [facility] [id number] [address] [place] [id number] Mar, [facility], [place] [address] [facility] [id number] [address] [place] [id number] Mar, [facility], [place] [address] [facility] [id number] [address] [place] [id number] Mar, [facility], [place] [address] [id number] [address] [place] [id number] Mar, [facility], [place] [address] [id number] [address] [place] [id number] Feb, [facility], [place] [address] [facility] [id number] [address] [place] [id number] Feb, [facility], [place] [address] [facility] [id number] [address] [place] [id number] Feb, [facility], [place] [address] [facility] [id number] [address] [place] [id number] 23 Feb, 2020 [facility], [place] [address] [facility] [id number] [address] [place] [id number] 18 Feb, 2020 Bipolar I disorder, most rec ent episode depressed, moderate F31.32 ; Anxiety F41.9 and Mild cognitive impairment G31.84 [place] [address] [facility] [id number] [address] [place] [id number] 17 Feb, 2020 Chronic pain G89.29 [place] [address] [facility] [id number] [address] [place] [id number] Feb, Agitation R45.1 [place] [address] [place] [id number] [place] [id number] 17 Feb, 2020 PVD (peripheral vascular dis ease) I73.9 ; Status post CVA Z86.73 ; Status post carotid endarterectomy Z98.890 ; Vertigo R42 ; Mild cognitive impairment G31.84 ; Type 2 diabetes mellitus with diabetic neuropathy, unspecified E11.40 and Essential hypertension I10 [place] [address] [facility] [id number] [address] [place] [id number] Feb, [place] [address] [place] [id number] [address] [place] [id number] Feb, [place] [address] [place] [id number] [address] [place] [address] January, [place] [address] [facility] [id number] [address] [place] [address] January, Chronic pain G89.29 [facility], [place] [address] [facility] [id number] [address] [place] [id number] Dec, [place] [address] [place] [id number] [address] [place] [id number] Dec, Chronic pain G89.29 [facility], [place] [address] [place] [id number] [address] [place] [id number] Dec, [place] [address] [place] [id number] [address] [place] [id number] 07 Dec, 2019 [facility], [place] [address] [facility] [id number] [address] [place] [id number] Dec, Gastroesophageal reflux dise ase without esophagitis K21.9 and Pure hypercholesterolemia E78.00 [facility], [place] [address] [facility] [id number] [address] [place] [id number] Dec, Mood disorder F39 [place] [address] [facility] [id number] [address] [place] [id number] Nov, Other secondary acute gout, 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 [place] [address] [facility] [id number] [address] [place] [id number] Nov, Gastroesophageal reflux dise ase without esophagitis K21.9 [place] [address] [place] [id number] [address] [place] [address] Nov, Chronic pain G89.29 [place] [address] [place] [id number] [address] [place] [address] Nov, Bipolar I disorder, most rec ent episode depressed, moderate F31.32 ; Anxiety F41.9 and Mild cognitive impairment G31.84 [place] [address] [place] [id number] [address] [place] [id number] Nov, [place] [address] [place] [id number] [address] [place] [address] Nov, Syncope, unspecified syncope type R55 [place] [address] [facility] [id number] [address] [place] [address] Nov, Mood disorder F39 [place] [address] [facility] [id number] [address] [place] [id number] Oct, Chronic pain G89.29 [place] [address] [facility] [id number] [address] [place] [id number] Oct, [facility], [place] [address] [facility] [id number] [address] [place] [id number] Oct, 2019 Mood disorder F39 [facility], [place] [address] [id number] [address] [place] [id number] Oct, [facility], [place] [address] [id number] [address] [place] [id number] Oct, Bipolar disorder, in partial remission, most recent episode depressed F31.75 and Mild cognitive impairment G31.84 [facility], [place] [address] [id number] [address] [place] [id number] 04 Oct, 2019 Mood disorder F39 [facility], [place] [address] [id number] [address] [place] [id number] Sep, [facility], [place] [address] [id number] [address] [place] [id number] Sep, Mood disorder F39 [facility], [place] [address] [id number] [address] [place] [address] Sep, Bipolar disorder, in partial remission, most recent episode depressed F31.75 and Mild cognitive impairment G31.84 [facility], [place] [address] [id number] [address] [place] [id number] Sep, Mood disorder F39 [facility], [place] [address] [id number] [address] [place] [id number] Sep, [facility], [place] [address] [id number] [address] [place] [id number] Sep, Mood disorder F39 [facility], [place] [address] [id number] [address] [place] [id number] Sep, [facility], [place] [address] [id number] [address] [place] [id number] Aug, Mood disorder F39 [facility], [place] [address] [id number] [address] [place] [id number] Aug, [facility], [place] [address] [id number] [address] [place] [id number] Aug, [facility], [place] [address] [id number] [address] [place] [id number] Aug, [facility], [place] [address] [id number] [address] [place] [id number] Aug, [facility], [place] [address] [id number] [address] [place] [id number] Aug, [facility], [place] [address] [id number] [address] [place] [id number] Aug, [facility], [place] [address] [id number] [address] [place] [id number] Aug, [facility], [place] [address] [id number] [address] [place] [address] Aug, Essential hypertension I10 [facility], [place] [address] [id number] [address] [place] [address] Aug, Bipolar disorder, in partial remission, most recent episode depressed F31.75 and Mild cognitive impairment G31.84 [facility], [place] [address] [id number] [address] [place] [id number] Aug, Mood disorder F39 [facility], [place] [address] [id number] [address] [place] [id number] Aug, [facility], [place] [address] [id number] [address] [place] [id number] Aug, Bipolar disorder, in partial remission, most recent episode depressed F31.75 and Mild cognitive impairment G31.84 [facility], [place] [address] [id number] [address] [place] [id number] Jul, Bipolar disorder, in partial remission, most recent episode depressed F31.75 and Mild cognitive impairment G31.84 [facility], [place] [address] [id number] [address] [place] [id number] Jul, Psychophysiological insomnia F51.04 [facility], [place] [address] [id number] [address] [place] [id number] Jul, [facility], [place] [address] [id number] [address] [place] [id number] Jul, [facility], [place] [address] [id number] [address] [place] [id number] Jul, [facility], [place] [address] [id number] [address] [place] [address] Jul, [facility], [place] [address] [id number] [address] [place] [address] Jul, [facility], [place] [address] [id number] [address] [place] [address] Jul, [facility], [place] [address] [id number] [address] [place] [address] Jul, Bipolar disorder, in partial remission, most recent episode depressed F31.75 and Mild cognitive impairment G31.84 [facility], [place] [address] [id number] [address] [place] [id number] Jul, Chronic pain G89.29 ; Diabet es E11.9 ; Essential hypertension I10 ; Ill feeling R68.89 ; Local infection of the skin and subcutaneous tissue, unspecified L08.9 and Other injury of unspecified body region, initial encounter T14.8XXA [facility], [place] [address] [facility] [id number] [address] [place] [id number] Jun, Bipolar disorder, in partial remission, most recent episode depressed F31.75 and Mild cognitive impairment G31.84 [facility], [place] [address] [id number] [address] [place] [id number] Jun, [facility], [place] [address] [id number] [address] [place] [address] Jun, Bipolar disorder, in partial remission, most recent episode depressed F31.75 and Mild cognitive impairment G31.84 [facility], [place] [address] [id number] [address] [place] [id number] Jun, Psychophysiological insomnia F51.04 [facility], [place] [address] [id number] [address] [place] [address] Jun, Psychophysiological insomnia F51.04 ; Chronic pain G89.29 ; Bipolar I disorder, most recent episode (or current) mixed, moderate F31.62 ; 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 ; Polyneuropathy associated with underlying disease G63 ; Type 2 diabetes mellitus with diabetic neuropathy, unspecified E11.40 ; detention (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 Z79.4 and Hyperglycemia R73.9 [place] [address] [place] [id number] [address] [place] [address] Jun, Bipolar disorder, in partial remission, most recent episode depressed F31.75 and Mild cognitive impairment G31.84 [place] [address] [place] [id number] [address] [place] [address] Jun, [place] [address] [place] [id number] [place] [address] Jun, Bipolar disorder F31.9 [place] [address] [place] [id number] [address] [place] [address] May, Bipolar disorder, in partial remission, most recent episode depressed F31.75 and Mild cognitive impairment G31.84 [place] [address] [place] [id number] [address] [place] [address] May, [place] [address] [place] [id number] [address] [place] [address] Apr, Chronic pain G89.29 and Bipo lar disorder F31.9 [place] [address] [place] [id number] [address] [place] [address] Mar, Bipolar disorder F31.9 and C hronic pain G89.29 [place] [address] [place] [id number] [address] [place] [address] Feb, Bipolar disorder F31.9 [facility], [place] [address] [place] [id number] [address] [place] [address] Feb, Cellulitis of right upper ex tremity L03.113 and Skin abrasion T14.8XXA [facility], [place] [address] [id number] [address] [place] [id number] 17 Feb, 2019 Bipolar disorder, in partial remission, most recent episode depressed F31.75 and Mild cognitive impairment G31.84 [facility], [place] [address] [id number] [address] [place] [address] 13 Feb, 2019 Chronic pain G89.29 [facility], [place] [address] [id number] [address] [place] [address] Feb, Bipolar disorder, in partial remission, most recent episode depressed F31.75 and Mild cognitive impairment G31.84 [place] [address] [id number] [address] [place] [address] January, Bipolar disorder, in partial remission, most recent episode depressed F31.75 and Mild cognitive impairment G31.84 [place] [address] [id number] [address] [place] [id number] January, Chronic pain G89.29 and Bipo lar disorder F31.9 [place] [address] [id number] [address] [place] [address] January, Bipolar disorder, in partial remission, most recent episode depressed F31.75 and Mild cognitive impairment G31.84 [place] [address] [id number] [address] [place] [address] Dec, [place] [address] [id number] [address] [place] [address] Dec, Chronic pain G89.29 and Bipo lar disorder F31.9 [facility], [place] [address] [id number] [address] [place] [id number] Dec, Edema of both lower extremit ies R60.0 [facility], [place] [address] [id number] [address] [place] [address] Dec, Bipolar disorder F31.9 [facility], [place] [address] [id number] [address] [place] [address] Dec, Bipolar disorder, in partial remission, most recent episode depressed F31.75 and Mild cognitive impairment G31.84 [place] [address] [place] [id number] [address] [place] [id number] Nov, [place] [address] [place] [id number] [address] [place] [address] Nov, Chronic pain G89.29 [place] [id number] [place] [address] Nov, Bipolar disorder, in partial remission, most recent episode depressed F31.75 and Mild cognitive impairment G31.84 [place] [address] [address] Nov, Bipolar disorder F31.9 [place] [address] [address] [place] [id number] [address] [place] [address] Nov, Encounter for Medicare annua l wellness [...] unspecified morphology N40.1 and Essential hypertension I10 [place] [address] [place] [id number] [address] [place] [address] Oct, Chronic pain G89.29 [place] [address] [place] [id number] [address] [place] [address] Oct, Diabetes E11.9 [place] [id number] [address] [place] [address] Oct, Bipolar I disorder, most rec ent episode (or current) mixed, moderate F31.62 and Mild cognitive impairment G31.84 [place] [id number] [address] [place] [address] Oct, Bipolar I disorder, most rec ent episode (or current) mixed, moderate F31.62 and Mild cognitive impairment G31.84 [place] [address] [place] [id number] [place] [address] Sep, Bipolar I disorder, most rec ent episode (or current) mixed, moderate F31.62 and Mild cognitive impairment G31.84 [place] [address] [address] Sep, [address] [address] Sep, Diabetes E11.9 ; Hypoxia R09 .02 ; Hyperglycemia R73.9 ; Therapeutic drug monitoring Z51.81 ; BMI 50.0-59.9, adult Z68.43 and Skin cancer C44.[address] [address] Sep, Chronic pain G89.[address] [address] Sep, Bipolar I disorder, most rec ent episode (or current) mixed, moderate F31.62 [place] [address] [place] [id number] [place] [address] Sep, [place] [address] [address] Sep, [place] [address] [place] [id number] [address] [place] [address] Aug, Chronic pain G89.29 [place] [id number] [place] [id number] Aug, Bipolar I disorder, most rec ent episode (or current) mixed, moderate F31.62 [place] [id number] [address] [place] [address] Aug, Bipolar I disorder, most rec ent episode (or current) mixed, moderate F31.62 and Mild cognitive impairment G31.84 [facility], [place] [address] [id number] [address] [place] [address] Jul, [facility], [place] [address] [id number] [address] [place], [place] [address] Jul, Chronic pain G89.29 [facility], [place] [address] [id number] [address] [place] [id number] Jul, Bipolar I disorder, most rec ent episode (or current) mixed, moderate F31.62 and Mild cognitive impairment G31.84 [facility] [place] [address] [id number] [address] [place] [address] Jul, Bipolar I disorder, most rec ent episode (or current) mixed, moderate F31.62 and MCI (mild cognitive impairment) G31.84 [facility], [place] [address] [id number] [address] [place] [address] Jul, [facility], [place] [address] [id number] [address] [place] [id number] Jul, [facility], [place] [address] [id number] [address] [place] [id number] Jul, Bipolar I disorder, most rec ent episode (or current) mixed, moderate F31.62 [facility], [place] [address] [id number] [address] [place] [address] Jul, Chronic pain G89.29 [facility] [place] [address] [id number] [address] [place] [id number] Jun, Bipolar I disorder, most rec ent episode (or current) mixed, moderate F31.62 [facility] [place] [address] [id number] [address] [place] [id number] Jun, Pre-procedure lab exam Z01.8 12 [facility], [place] [address] [id number] [address] [place] [id number] Jun, [facility] [address] [id number] [place] [id number] Jun, [facility], [place] [address] [facility] [id number] [address] [place] [id number] Jun, [facility], [place] [address] [facility] [id number] [address] [place] [id number] Jun, Forgetfulness R68.89 ; Pre-s yncope R55 ; Localized edema R60.0 ; Other iron deficiency anemia D50.8 and BMI 50.0-59.9, adult Z68.43 [place] [address] [address] [facility] [id number] [address] [place] [id number] Jun, Chronic pain G89.29 [place] [address] [address] [facility] [id number] [address] [place] [id number] Jun, Chronic pain G89.29 [place] [address] [address] [place] [id number] [address] [place] [id number] Jun, Bipolar I disorder, most rec ent episode (or current) mixed, moderate F31.62 [place] [address] [address] [facility] [id number] [address] [place] [id number] May, Chronic pain G89.29 [place] [address] [address] [facility] [id number] [address] [place] [id number] Apr, [place] [address] [address] [place] [id number] [address] [place] [id number] Apr, Chronic pain G89.29 [place] [address] [address] [facility] [id number] [address] [place] [id number] Apr, Primary osteoarthritis of ri ght knee M17.11 [facility], [place] [address] [facility] [id number] [address] [place] [id number] Mar, [place] [address] [address] [facility] [id number] [address] [place] [id number] Mar, BMI 50.0-59.9, adult Z68.43 and Bipolar disorder, in partial remission, most recent episode depressed F31.75 [place] [address] [address] [place] [id number] [address] [place] [address] Mar, Diabetes E11.9 ; Pure hyperc holesterolemia E78.00 ; Essential hypertension I10 ; Nausea with vomiting, unspecified R11.2 and Headache, unspecified headache type R51 [place] [address] [address] Mar, Bipolar I disorder, most rec ent episode (or current) mixed, moderate F31.62 [place] [address] [address] Mar, Bipolar I disorder, most rec ent episode (or current) mixed, moderate F31.62 [place] [address] [address] Mar, Chronic pain G89.29 [place] [address] [address] Mar, Bipolar I disorder, most rec ent episode (or current) mixed, moderate F31.62 [place] [address] [address] 18 Feb, 2018 Bipolar I disorder, most rec ent episode (or current) mixed, moderate F31.62 [place] [address] [address] 14 Feb, 2018 Chronic pain G89.29 [place] [address] [address] Feb, Decubitus ulcer of right josselin t, stage 3 L89.893 and BMI 50.0-59.9, adult Z68.[address] [address] Feb, Bipolar I disorder, most rec ent episode (or current) mixed, moderate F31.62 [place] [address] [address] Feb, [place] [address] [address] [facility] [id number] [address] [place] [address] January, [place] [address] [address] [facility] [id number] [address] [place] [address] January, Chronic pain G89.29 [facility], [place] [address] [facility] [id number] [address] [place] [address] January, Bipolar I disorder, most rec ent episode (or current) mixed, moderate F31.62 [place] [address] [address] [place] [id number] [address] [place] [id number] January, Bipolar I disorder, most rec ent episode (or current) mixed, moderate F31.62 [place] [address] [address] [place] [id number] [place] [id number] Dec, Bipolar I disorder, most rec ent episode (or current) mixed, moderate F31.62 and BMI 50.0-59.9, adult Z68.43 [place] [address] [address] [place] [id number] [place] [id number] Dec, Bipolar I disorder, most rec ent episode (or current) mixed, moderate F31.62 [place] [address] [address] [place] [id number] [address] [place] [address] Dec, Chronic pain G89.29 [place] [address] [address] [place] [id number] [place] [phone] Dec, DM neuro manif type II E11.4 9 ; Right flank pain R10.9 ; 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 ; Encounter for medication monitoring Z51.81 and BMI 50.0-59.9, adult Z68.43 [place] [address] [address] [place] [id number] [place] [id number] Dec, Bipolar I disorder, most rec ent episode (or current) mixed, moderate F31.62 [place] [address] [address] [place] [id number] [address] [place] [address] Nov, Bipolar I disorder, most rec ent episode (or current) mixed, moderate F31.62 [facility], [place] [address] [facility] [id number] [address] [place] [address] Nov, Chronic pain G89.29 [facility], [place] [address] [facility] [id number] [address] [place] [id number] Nov, Bipolar I disorder, most rec ent episode (or current) mixed, moderate F31.62 [facility], [place] [address] [place] [id number] [address] [place] [address] Nov, Hypokalemia E87.6 [facility], [place] [address] [place] [id number] [address] [place] [address] Nov, Bipolar I disorder, most rec ent episode (or current) mixed, moderate F31.62 [facility], [place] [address] [place] [id number] [address] [place] [address] Oct, Chronic pain G89.29 [facility], [place] [address] [place] [id number] [address] [place] [address] Oct, BMI 50.0-59.9, adult Z68.43 and Bipolar I disorder, most recent episode (or current) mixed, moderate F31.62 [facility], [place] [address] [place] [id number] [place] [phone] Oct, Bipolar I disorder, most rec ent episode (or current) mixed, moderate F31.62 [facility], [place] [address] [place] [id number] [address] [place] [id number] Oct, [facility], [place] [address] [place] [id number] [address] [place] [address] Oct, Hypokalemia E87.6 [facility], [place] [address] [place] [id number] [address] [place] [address] Oct, DM neuro manif type II E11.4 9 [facility], [place] [address] [place] [id number] [address] [place] [address] Oct, Bipolar I disorder, most rec ent episode (or current) mixed, moderate F31.62 [place] [address] [address] 20 Oct, 2017 Bipolar I disorder, most rec ent episode (or current) mixed, moderate F31.62 [place] [address] [address] 14 Oct, 2017 Hyperkalemia E87.5 ; Falling R29.6 ; BMI 50.0-59.9, adult Z68.43 and Acute left ankle pain M25.572 [place] [address] [address] 08 Oct, 2017 DM neuro manif type II E11.4 9 [place] [address] [address] Oct, [place] [address] [address] Sep, Chronic pain G89.29 [place] [address] [address] Sep, [place] [address] [address] Sep, Bilateral primary osteoarthr itis of knee M17.0 [place] [address] [address] Sep, Generalized edema R60.1 [place] [address] [address] Sep, Bipolar I disorder, most rec ent episode (or current) mixed, moderate F31.62 [place] [address] [address] 15 Sep, 2017 Hypoxia R09.02 ; Other hyper volemia E87.79 ; Diabetes E11.9 ; Retinal edema H35.81 ; Hypokalemia E87.6 ; 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 ; Anemia of chronic illness D63.8 and BMI 50.0- 59.9, adult Z68.43 [place] [address] [address] [place] [id number] [address] [place] [address] Sep, [place] [address] [address] [place] [id number] [address] [place] [address] Sep, Bipolar I disorder, most rec ent episode (or current) mixed, moderate F31.62 [place] [address] [address] [place] [id number] [address] [place] [address] Aug, Chronic pain G89.29 [place] [address] [address] [place] [id number] [address] [place] [address] Aug, Generalized edema R60.1 [place] [address] [address] [place] [id number] [address] [place] [address] Aug, [place] [address] [address] [place] [id number] [place] [phone] Aug, [place] [address] [address] [place] [id number] [address] [place] [address] 14 Aug, 2017 Bipolar I disorder, most rec ent episode (or current) mixed, moderate F31.62 [place] [address] [address] [place] [id number] [address] [place] [address] Aug, Bipolar I disorder, most rec ent episode (or current) mixed, moderate F31.62 [place] [address] [address] [place] [id number] [address] [place] [address] 04 Aug, 2017 Chronic pain G89.29 [place] [address] [address] [facility] [id number] [address] [place] [address] 30 Jul, 2017 Bipolar I disorder, most rec ent episode (or current) mixed, moderate F31.62 [place] [address] [address] [facility] [id number] [address] [place] [address] Jul, Bipolar I disorder, most rec ent episode (or current) mixed, moderate F31.62 and BMI 60.0-69.9, adult Z68.44 [facility], [place] [address] [id number] [address] [place] [id number] 16 Jul, 2017 Bipolar I disorder, most rec ent episode (or current) mixed, moderate F31.62 [facility], [place] [address] [facility] [id number] [address] [place] [address] 06 Jul, 2017 Chronic pain G89.29 [facility], [place] [address] [facility] [id number] [address] [place] [address] 02 Jul, 2017 Bipolar I disorder, most rec ent episode (or current) mixed, moderate F31.62 [facility] [place] [address] [facility] [id number] [address] [place] [address] Jun, Polyneuropathy associated wi th underlying disease G63 and Diabetes E11.9 [facility], [place] [address] [facility] [id number] [address] [place] [address] Jun, Bipolar I disorder, most rec ent episode (or current) mixed, moderate F31.62 [facility], [place] [address] [facility] [id number] [address] [place] [address] Jun, Chronic pain G89.29 [facility], [place] [address] [facility] [id number] [address] [place] [address] May, Bipolar I disorder, most rec ent episode (or current) mixed, moderate F31.62 [facility] [place] [address] [facility] [id number] [address] [place] [address] May, Bipolar I disorder, most rec ent episode (or current) mixed, moderate F31.62 [facility] [place] [address] [facility] [id number] [address] [place] [address] May, Diabetic polyneuropathy asso ciated with type 2 diabetes mellitus E11.42 [facility], [place] [address] [id number] [address] [place] [id number] 18 May, 2017 Bipolar I disorder, most rec ent episode (or current) mixed, moderate F31.62 [facility] [place] [address] [facility] [id number] [address] [place] [id number] 13 May, 2017 Bipolar I disorder, most rec ent episode (or current) mixed, moderate F31.62 [facility] [place] [address] [id number] [address] [place] [address] May, Chronic pain G89.29 [facility], [place] [address] [id number] [address] [place] [address] Apr, Bipolar I disorder, most rec ent episode (or current) mixed, moderate F31.62 [facility], [place] [address] [id number] [address] [place] [address] Apr, [facility] [place] [address] [id number] [address] [place] [address] Apr, Chronic pain G89.29 and DM n euro manif type II E11.49 [facility], [place] [address] [id number] [address] [place] [address] Apr, [facility], [place] [address] [id number] [address] [place] [address] Apr, Bipolar I disorder, most rec ent episode (or current) mixed, moderate F31.62 [facility], [place] [address] [id number] [address] [place] [address] Apr, Chronic pain G89.29 [facility], [place] [address] [id number] [address] [place] [address] Apr, Iliotibial band syndrome, le ft M76.32 [facility], [place] [address] [id number] [address] [place] [address] Apr, Bipolar I disorder, most rec ent episode (or current) mixed, moderate F31.62 [facility] [place] [address] [id number] [address] [place] [address] Mar, Bipolar I disorder, most rec ent episode (or current) mixed, moderate F31.62 [facility] [place] [address] [facility] [id number] [address] [place] [id number] Mar, Bipolar I disorder, most rec ent episode (or current) mixed, moderate F31.62 [facility], [place] [address] [id number] [address] [place] [id number] Mar, [facility] [place] [address] [facility] [id number] [address] [place] [address] Mar, Bipolar I disorder, most rec ent episode (or current) mixed, moderate F31.62 [facility] [place] [address] [facility] [id number] [address] [place] [address] Mar, Chronic pain G89.29 [facility] [place] [address] [id number] [address] [place] [address] Mar, Bipolar I disorder, most rec ent episode (or current) mixed, moderate F31.62 [facility] [place] [address] [facility] [id number] [address] [place] [id number] Mar, Bipolar I disorder, most rec ent episode (or current) mixed, moderate F31.62 [facility] [place] [address] [facility] [id number] [address] [place] [address] Mar, Acute pain of left knee M25. 562 ; Left hip pain M25.552 ; Generalized edema R60.1 and Tongue swelling R22.0 [facility] [place] [address] [facility] [id number] [address] [place] [id number] Mar, [facility] [place] [address] [facility] [id number] [address] [place] [address] Feb, Chronic pain G89.29 [facility] [place] [address] [facility] [id number] [address] [place] [address] Feb, Diabetes E11.9 [facility] [place] [address] [facility] [id number] [address] [place] [id number] January, Chronic pain G89.29 [facility] [place] [address] [facility] [id number] [address] [place] [address] January, [facility] [place] [address] [facility] [id number] [address] [place] [address] January, Bipolar I disorder, most rec ent episode (or current) mixed, moderate F31.62 [facility] [place] [address] [facility] [id number] [address] [place] [address] Dec, Bipolar I disorder, most rec ent episode (or current) mixed, moderate F31.62 [facility] [place] [address] [facility] [id number] [address] [place] [address] Dec, Chronic pain G89.29 [facility] [place] [address] [facility] [id number] [address] [place] [id number] Dec, Bipolar I disorder, most rec ent episode (or current) mixed, moderate F31.62 [facility], [place] [address] [place] [id number] [address] [place] [address] Dec, Diabetes E11.9 ; Essential h ypertension I10 ; Chronic pain G89.29 and Morbid obesity E66.01 [facility] [place] [address] [facility] [id number] [address] [place] [address] Dec, [facility] [place] [address] [facility] [id number] [address] [place] [address] Dec, Bipolar I disorder, most rec ent episode (or current) mixed, moderate F31.62 [facility] [place] [address] [place] [id number] [address] [place] [id number] Dec, Bipolar I disorder, most rec ent episode (or current) mixed, moderate F31.62 [facility] [place] [address] [facility] [id number] [address] [place] [address] Nov, Chronic pain G89.29 [facility] [place] [address] [facility] [id number] [address] [place] [id number] Nov, Bipolar I disorder, most rec ent episode (or current) mixed, moderate F31.62 [facility] [place] [address] [facility] [id number] [address] [place] [id number] Nov, [facility] [place] [address] [facility] [id number] [address] [place] [id number] 16 Nov, 2016 Bipolar I disorder, most rec ent episode (or current) mixed, moderate F31.62 [facility] [place] [address] [facility] [id number] [address] [place] [address] Nov, Bipolar I disorder, most rec ent episode (or current) mixed, moderate F31.62 [facility] [place] [address] [facility] [id number] [address] [place] [id number] Nov, [facility] [place] [address] [facility] [id number] [address] [place] [address] Nov, [facility], [place] [address] [place] [id number] [address] [place] [address] Nov, [facility] [place] [address] [place] [id number] [address] [place] [id number] Oct, Chronic pain G89.29 [facility] [place] [address] [place] [id number] [address] [place] [id number] Oct, Bipolar I disorder, most rec ent episode (or current) mixed, moderate F31.62 [facility] [place] [address] [place] [id number] [address] [place] [address] Oct, [facility] [place] [address] [place] [id number] [address] [place] [address] Oct, Chronic pain G89.29 ; Diabet es E11.9 ; Anxiety F41.9 and 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 [facility] [place] [address] [facility] [id number] [address] [place] [address] Oct, [facility] [place] [address] [place] [id number] [address] [place] [id number] 06 Oct, 2016 Diabetes E11.9 [facility] [place] [address] [facility] [id number] [address] [place] [address] Oct, Bipolar I disorder, most rec ent episode (or current) mixed, moderate F31.62 [facility] [place] [address] [id number] [address] [place] [address] Sep, Chronic pain G89.29 [facility] [place] [address] [facility] [id number] [address] [place] [address] Sep, Chronic pain G89.29 [facility] [place] [address] [facility] [id number] [address] [place] [address] Aug, Chronic pain G89.29 [facility] [place] [address] [facility] [id number] [address] [place] [id number] Jul, [facility] [place] [address] [facility] [id number] [address] [place] [address] Jul, Diabetes E11.9 [facility] [place] [address] [facility] [id number] [address] [place] [address] Jul, Chronic pain G89.29 [facility] [place] [address] [facility] [id number] [address] [place] [id number] Jul, Bipolar I disorder, most rec ent episode (or current) mixed, moderate F31.62 [facility] [place] [address] [facility] [id number] [address] [place] [id number] Jun, Bipolar I disorder, most rec ent episode (or current) mixed, moderate F31.62 [facility] [place] [address] [facility] [id number] [address] [place] [id number] Jun, [facility] [place] [address] [facility] [id number] [address] [place] [id number] Jun, Bipolar I disorder, most rec ent episode (or current) mixed, moderate F31.62 [facility] [place] [address] [facility] [id number] [address] [place] [address] May, Insomnia, unspecified type G 47.00 [facility] [place] [address] [facility] [id number] [address] [place] [address] May, Bipolar I disorder, most rec ent episode (or current) mixed, moderate F31.62 [facility] [place] [address] [place] [id number] [address] [place] [id number] 14 May, 2016 [place] [address] [place] [id number] [place] [address] 08 May, 2016 Bipolar I disorder, most rec ent episode (or current) mixed, moderate F31.62 [place] [address] [place] [id number] [place] [phone] May, Diabetes E11.9 and Essential hypertension I10 [place] [address] [place] [id number] [place] [id number] Apr, Chronic pain G89.29 [place] [address] [id number] Apr, Bipolar I disorder, most rec ent episode (or current) mixed, moderate F31.62 [place] [address] [id number] Apr, [place] [address] [id number] Apr, [place] [address] [id number] Mar, Chronic pain G89.29 ; Headac he, unspecified headache type R51 ; Neuropathy G62.9 ; Pain of right hip joint M25.551 and Essential hypertension I10 [place] [address] [place] [id number] [place] [id number] Mar, Chronic pain G89.29 [place] [address] [place] [id number] [place] [id number] Mar, Bipolar I disorder, most rec ent episode (or current) mixed, moderate F31.62 [place] [address] [place] [id number] [place] [phone] Feb, Bipolar I disorder, most rec ent episode (or current) mixed, moderate F31.62 and Insomnia, unspecified type G47.00 [place] [address] [place] [id number] [place] [id number] Feb, Chronic pain G89.29 [facility] [place] [address] [id number] [address] [place] [id number] Feb, Bipolar I disorder, most rec ent episode (or current) mixed, moderate F31.62 [facility] [place] [address] [id number] [address] [place] [id number] January, Bipolar I disorder, most rec ent episode (or current) mixed, moderate F31.62 [facility] [place] [address] [id number] [address] [place] [id number] January, Chronic pain G89.29 [facility] [place] [address] [id number] [address] [place] [id number] January, Chronic pain G89.29 and Esse ntial hypertension I10 [facility] [place] [address] [id number] [address] [place] [id number] January, Bipolar I disorder, most rec ent episode (or current) mixed, moderate F31.62 [facility] [place] [address] [id number] [address] [place] [id number] Dec, [facility] [place] [address] [id number] [address] [place] [id number] Dec, [facility] [place] [address] [address] [id number] [address] [place] [address] Dec, [facility] [place] [address] [id number] [address] [place] [id number] Dec, [facility] [place] [address] [id number] [address] [place] [address] Nov, Reactive airway disease J45. 909 [facility], [place] [address] [id number] [address] [place] [id number] Nov, [facility], [place] [address] [id number] [address] [place] [id number] Nov, [place] [id number] [place] [address] Nov, [place] [address] [address] Nov, [place] [address] [address] Nov, Onychomycosis B35.1 ; Hammer toe M20.40 ; [place] or callus L84 and DM neuro manif type II E11.49 [place] [address] [address] Nov, Chronic pain G89.29 ; Leukoc ytosis D72.829 and Diabetes E11.9 [place] [address] [address] Nov, [place] [address] [address] Oct, Bronchitis J40 [place] [address] [address] Oct, [place] [address] [address] Oct, [place] [address] [address] Oct, Mastoiditis, unspecified lat erality H70.90 and Type 2 diabetes mellitus with complication E11.8 [place] [address] [address] [place] [id number] [address] [place] [address] Sep, [place] [address] [address] Sep, Dysuria R30.0 ; Cough R05 ; Benign prostatic hyperplasia with lower urinary tract symptoms, unspecified morphology N40.1 ; Hypokalemia E87.6 and Eustachian tube dysfunction, unspecified laterality H69.80 [place] [address] [place] [address] Sep, Moderate mixed bipolar I dis order F31.62 [facility], [place] [address] [facility] [id number] [address] [place] [address] Sep, Hypokalemia E87.6 [facility] [place] [address] [facility] [id number] [address] [place] [address] Sep, [facility] [place] [address] [facility] [id number] [address] [place] [address] Sep, Upper respiratory tract infe ction, unspecified type J06.9 [facility], [place] [address] [id number] [address] [place] [address] Aug, [facility], [place] [address] [facility] [id number] [address] [place] [address] Aug, Dysuria R30.0 [facility], [place] [address] [id number] [address] [place] [address] Aug, [facility], [place] [address] [id number] [address] [place] [address] Jul, [facility], [place] [address] [facility] [id number] [address] [place] [address] Jul, [facility], [place] [address] [facility] [id number] [address] [place] [address] Jul, [facility], [place] [address] [facility] [id number] [address] [place] [address] Jul, [facility], [place] [address] [id number] [address] [place] [address] Jun, [facility], [place] [address] [facility] [id number] [address] [place] [address] Jun, [facility], [place] [address] [facility] [id number] [address] [place] [address] Jun, [facility], [place] [address] [facility] [id number] [address] [place] [address] May, [facility], [place] [address] [id number] [address] [place] [address] May, Bipolar I disorder, most rec ent episode (or current) mixed, moderate 296.62 [facility], [place] [address] [id number] [address] [place] [address] May, [facility], [place] [address] [id number] [address] [place] [address] May, Bipolar I disorder, most rec ent episode (or current) mixed, moderate 296.62 and Major depressive disorder, recurrent episode, severe, specified as with psychotic behavior 296.34 [facility], [place] [address] [id number] [address] [place] [address] May, Bipolar I disorder, most rec ent episode (or current) mixed, moderate 296.62 [facility], [place] [address] [id number] [address] [place] [address] May, [facility], [place] [address] [id number] [address] [place] [address] Apr, [facility], [place] [address] [id number] [address] [place] [address] Apr, [facility], [place] [address] [id number] [address] [place] [address] Apr, Unspecified disorder of kidn ey and ureter 593.9 and Diabetes mellitus type 2, uncontrolled 250.02 [facility], [place] [address] [id number] [address] [place] [address] Apr, [facility], [place] [address] [id number] [address] [place] [address] Apr, [facility], [place] [address] [id number] [address] [place] [address] Apr, [facility], [place] [address] [id number] [address] [place] [address] Apr, [facility], [place] [address] [id number] [address] [place] [address] Apr, Diabetes mellitus type II, u ncontrolled 250.02 [facility], [place] [address] [facility] [id number] [address] [place] [address] Apr, [facility], [place] [address] [facility] [id number] [address] [place] [address] Mar, [facility], [place] [address] [place] [id number] [address] [place] [address] Mar, [facility], [place] [address] [facility] [id number] [address] [place] [address] Mar, [facility], [place] [address] [place] [id number] [address] [place] [address] Mar, Major depressive disorder, r ecurrent episode, severe, specified as with psychotic behavior 296.34 and Bipolar I disorder, most recent episode (or current) mixed, moderate 296.62 [facility], [place] [id number] [place] [address] Mar, Diabetes 250.00 ; Anuria 788 .5 ; Nausea and vomiting 787.01 and Diarrhea 787.91 [facility], [place] [address] [place] [id number] [address] [place] [address] Mar, Diabetes 250.00 [facility], [place] [address] [place] [id number] [address] [place] [address] Mar, [facility], [place] [address] [place] [id number] [address] [place] [address] Mar, Diabetes 250.00 [facility], [place] [address] [facility] [id number] [address] [place] [address] Mar, [facility], [place] [address] [place] [id number] [address] [place] [address] Mar, [facility], [place] [address] [place] [id number] [address] [place] [address] Mar, [facility], [place] [address] [place] [address] Mar, [address] [address] Mar, Bipolar I disorder, most rec ent episode (or current) mixed, moderate 296.62 and Major depressive disorder, recurrent episode, severe, specified as with psychotic behavior 296.[address] [address] Mar, Magnesium deficiency 275.2 ; Hypokalemia 276.8 ; Nausea & vomiting 787.01 and Diabetes mellitus type 2, uncontrolled 250.[address] [address] Feb, [address] [address] Feb, Bipolar I disorder, most rec ent episode (or current) mixed, moderate 296.[address] [address] Feb, Nausea and vomiting 787.01 ; Left elbow pain 719.42 ; Anuria 788.5 and Diabetes 250.[address] [address] Feb, [address] [address] Feb, Hypopotassemia 276.8 and Hyp okalemia 276.[address] [address] Feb, Hypopotassemia 276.8 and Hyp okalemia 276.[address] [address] Feb, Seborrheic keratoses 702.[address] [address] Feb, Hypopotassemia 276.8 and Low magnesium levels 275.2 [facility], [place] [address] [id number] [address] [place] [address] January, [facility] [address] [id number] [address] [place] [address] January, [facility] [address] [id number] [address] [place] [address] January, [facility] [address] [id number] [address] [place] [address] January, Scalp lesion 709.9 [facility] [address] [id number] [address] [place] [address] January, [facility], [place] [address] [id number] [address] [place] [id number] Dec, Tear of medial cartilage or meniscus of knee, current 836.0 and Chondromalacia 733.92 [facility], [place] [address] [id number] [address] [place] [address] Dec, [facility], [place] [address] [id number] [address] [place] [address] Dec, [facility] [address] [id number] [address] [place] [address] Dec, Squamous cell carcinoma, 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 [facility], [place] [address] [id number] [address] [place] [id number] 14 Dec, 2014 [facility] [address] [id number] [address] [place] [id number] Dec, [facility] [address] [id number] [address] [place] [address] Nov, [facility] [address] [id number] [address] [place] [address] Nov, [facility] [address] [id number] [address] [place] [address] Nov, [facility] [address] [id number] [address] [place] [address], [place] [address] Nov, [facility] [address] [id number] [address] [place] [address], [place] [address] Nov, 2014 [facility] [address] [id number] [address] [place] [address], [place] [address] Nov, 2014 [facility] [address] [id number] [address] [place] [address], [place] [address] Nov, 2014 [facility] [address] [id number] [address] [place] [address], [place] [address] Nov, 2014 [facility] [address] [id number] [address] [place] [address], [place] [address] Nov, [facility] [address] [id number] [address] [place] [address], [place] [address] Nov, 2014 [facility] [address] [id number] [address] [place] [address], [place] [address] Nov, 2014 [facility] [address] [id number] [address] [place] [address], [place] [address] Nov, [facility] [address] [id number] [address] [place] [address], [place] [address] Oct, 2014 [facility] [address] [id number] [address] [place] [address], [place] [address] Oct, 2014 [facility] [address] [id number] [address] [place] [address], [place] [address] Oct, 2014 [facility] [address] [id number] [address] [place] [id number] Oct, 2014 [facility] [address] [id number] [address] [place] [address], [place] [address] Oct, 2014 [facility] [address] [id number] [address] [place] [id number] Oct, 2014 [facility] [address] [id number] [address] [place] [address], [place] [address] Oct, [facility] [address] [id number] [address] [place] [address], [place] [address] Oct, [facility] [address] [id number] [address] [place] [address], [place] [address] Oct, [facility] [address] [id number] [address] [place] [address], [place] [address] Sep, [facility] [address] [id number] [address] [place] [address], [place] [address] Sep, [facility] [address] [id number] [address] [place] [address], [place] [address] Sep, [facility] [address] [id number] [address] [place] [address], [place] [address] Sep, [facility] [address] [id number] [address] [place] [address], [place] [address] Sep, [facility] [address] [id number] [address] [place] [address], [place] [address] Sep, [facility] [address] [id number] [address] [place] [address], [place] [address] Sep, [facility] [address] [id number] [address] [place] [address], [place] [address] Sep, [facility] [address] [id number] [address] [place] [address], [place] [address] Sep, [facility] [address] [id number] [address] [place] [address] Sep, [facility] [address] [id number] [address] [place] [address], [place] [address] Sep, [facility] [address] [id number] [address] [place] [address], [place] [address] Sep, [facility] [address] [id number] [address] [place] [address], [place] [address] Sep, [facility] [address] [id number] [address] [place] [address], [place] [address] Sep, [facility] [address] [id number] [address] [place] [address], [place] [address] Sep, [facility] [address] [id number] [address] [place] [address], [place] [address] Sep, [facility] [address] [id number] [address] [place] [address], [place] [address] Aug, [facility] [address] [id number] [address] [place] [address], [place] [address] Aug, [facility] [address] [id number] [address] [place] [address], [place] [address] Aug, [facility] [address] [id number] [address] [place] [address], [place] [address] Aug, [facility] [address] [id number] [address] [place] [address], [place] [address] Aug, [facility] [address] [id number] [address] [place] [address], [place] [address] Aug, [facility] [address] [id number] [address] [place] [address], [place] [address] Aug, [facility] [address] [id number] [address] [place] [address], [place] [address] Aug, [facility] [address] [id number] [address] [place] [address], [place] [address] Aug, [facility] [address] [id number] [address] [place] [address], [place] [address] Aug, [facility] [address] [id number] [address] [place] [address], [place] [address] Aug, [facility] [address] [place] [id number] Aug, [facility] [address] [id number] [address] [place] [address], [place] [address] Aug, [facility] [address] [id number] [facility] [place] [address] 10 Aug, 2014 [facility] [address] [id number] [address] [place] [address], [place] [address] Aug, [facility] [address] [id number] [address] [place] [address], [place] [address] Aug, [facility] [address] [id number] [address] [place] [address], [place] [address] Aug, [facility] [address] [id number] [address] [place] [address], [place] [address] Aug, [facility] [address] [id number] [address] [place] [address], [place] [address] Aug, [facility] [address] [id number] [address] [place] [address], [place] [address] Aug, [facility] [address] [id number] [address] [place] [address], [place] [address] Aug, [facility] [address] [id number] [address] [place] [address], [place] [address] Aug, [facility] [address] [id number] [address] [place] [address], [place] [address] Aug, [facility] [address] [id number] [address] [place] [address], [place] [address] Aug, [facility] [address] [id number] [address] [place] [address], [place] [address] Aug, [facility] [address] [id number] [address] [place] [address], [place] [address] Aug, [facility] [address] [id number] [address] [place] [address], [place] [address] Aug, [facility] [address] [id number] [address] [place] [address], [place] [address] Aug, [facility] [address] [id number] [address] [place] [address], [place] [address] Aug, [facility] [address] [id number] [address] [place] [address], [place] [address] Aug, [facility] [address] [id number] [address] [place] [address], [place] [address] Jul, [facility] [address] [id number] [address] [place] [address], [place] [address] Jul, [facility] [address] [id number] [address] [place] [address], [place] [address] Jul, [facility] [address] [id number] [address] [place] [address], [place] [address] Jul, [facility] [address] [id number] [address] [place] [address], [place] [address] Jul, [facility] [address] [id number] [address] [place] [address], [place] [address] Jul, [facility] [address] [id number] [address] [place] [address], [place] [address] Jul, [facility] [address] [id number] [address] [place] [address], [place] [address] Jul, [facility] [address] [id number] [address] [place] [address], [place] [address] Jul, [facility] [address] [id number] [address] [place] [address], [place] [address] Jul, [facility] [address] [id number] [address] [place] [address], [place] [address] Jun, [facility] [address] [id number] [address] [place] [address], [place] [address] Jun, [facility] [address] [id number] [address] [place] [address], [place] [address] Jun, [facility] [address] [id number] [address] [place] [address], [place] [address] Jun, [facility] [address] [id number] [address] [place] [address], [place] [address] 15 Jun, 2014 [facility] [address] [id number] [address] [place] [address], [place] [address] 15 Jun, 2014 [facility] [address] [id number] [address] [place] [address], [place] [address] 05 Jun, 2014 [facility] [address] [id number] [address] [place] [address], [place] [address] Jun, [facility] [address] [id number] [address] [place] [address], [place] [address] Jun, [facility] [address] [id number] [address] [place] [address], [place] [address] Jun, [facility] [address] [id number] [address] [place] [address], [place] [address] 29 May, 2013 [facility] [address] [id number] [address] [place] [address], [place] [address] 29 Sep, 2013 [facility] [address] [id number] [address] [place] [address], [place] [address] 26 Sep, 2013 [facility] [address] [id number] [address] [place] [address], [place] [address] 26 Sep, 2013 [facility] [address] [id number] [address] [place] [address], [place] [address] 17 Sep, 2013 [facility] [address] [id number] [address] [place] [address], [place] [address] 17 Sep, 2013 [facility] [address] [id number] [address] [place] [address], [place] [address] 15 Sep, 2013 [facility] [address] [id number] [address] [place] [address], [place] [address] 15 Sep, 2013 [facility] [address] [id number] [address] [place] [address], [place] [address] 15 Sep, 2013 [facility] [address] [id number] [address] [place] [address], [place] [address] 15 Sep, 2013 [facility] [address] [id number] [facility] [place] [address] May, 2013 [facility] [address] [id number] [facility] [place] [address] May, 2013 [facility] [address] [id number] [facility] [place] [address] May, 2013 [facility] [address] [id number] [address] [place] [address], [place] [address] May, 2013 [facility] [address] [id number] [facility] [place] [address] May, 2013 [facility] [address] [id number] [address] [place] [address], [place] [address] May, [facility] [address] [id number] [address] [place] [address], [place] [address] Apr, [facility] [address] [id number] [address] [place] [address], [place] [address] Apr, [facility] [address] [id number] [address] [place] [address], [place] [address] Apr, [facility] [address] [id number] [address] [place] [address], [place] [address] Apr, [facility] [address] [id number] [address] [place] [address], [place] [address] Apr, [facility] [address] [id number] [address] [place] [address], [place] [address] Apr, [facility] [address] [id number] [address] [place] [address], [place] [address] Apr, [facility] [address] [id number] [address] [place] [address], [place] [address] Apr, [facility] [address] [id number] [address] [place] [address], [place] [address] Apr, [facility] [address] [id number] [address] [place] [address], [place] [address] Apr, [facility] [address] [id number] [facility] [place] [address] Apr, [facility] [address] [id number] [address] [place] [address], [place] [address] Apr, [facility] [address] [id number] [address] [place] [address], [place] [address] Apr, [facility] [address] [id number] [address] [place] [address], [place] [address] Apr, [facility] [address] [id number] [address] [place] [address], [place] [address] Apr, [facility] [address] [id number] [address] [place] [address], [place] [address] Mar, [facility] [address] [id number] [address] [place] [address], [place] [address] Mar, [facility] [address] [id number] [address] [place] [address], [place] [address] Mar, [facility] [address] [id number] [address] [place] [address], [place] [address] Mar, [facility] [address] [id number] [address] [place] [address], [place] [address] Mar, [facility] [address] [id number] [address] [place] [address], [place] [address] Mar, [facility] [address] [id number] [address] [place] [address], [place] [address] Mar, [facility] [address] [id number] [address] [place] [address], [place] [address] Mar, [facility] [address] [id number] [address] [place] [address], [place] [address] Mar, [facility] [address] [id number] [address] [place] [address], [place] [address] Mar, [facility] [address] [id number] [facility] [place] [address] Mar, 2013 [facility] [address] [id number] [address] [place] [address], [place] [address] Mar, 2013 [facility] [address] [id number] [address] [place] [address], [place] [address] Mar, 2013 [facility] [address] [id number] [address] [place] [address], [place] [address] Mar, 2013 [facility] [address] [id number] [address] [place] [address], [place] [address] Mar, 2013 [facility] [address] [id number] [address] [place] [address], [place] [address] Mar, 2013 [facility] [address] [id number] [address] [place] [address], [place] [address] Mar, 2013 [facility] [address] [id number] [address] [place] [address], [place] [address] Mar, 2013 [facility] [address] [id number] [address] [place] [address], [place] [address] Feb, [facility] [address] [id number] [address] [place] [address], [place] [address] Feb, [facility] [address] [id number] [address] [place] [address], [place] [address] Feb, [facility] [address] [id number] [address] [place] [address], [place] [address] Feb, [facility] [address] [id number] [address] [place] [address], [place] [address] Feb, [facility] [address] [id number] [address] [place] [address], [place] [address] Feb, [facility] [address] [id number] [address] [place] [address], [place] [address] Feb, [facility] [address] [id number] [address] [place] [address], [place] [address] Feb, [facility] [address] [id number] [address] [place] [address], [place] [address] Feb, [facility] [address] [id number] [address] [place] [address], [place] [address] Feb, [facility] [address] [id number] [address] [place] [address], [place] [address] Feb, [facility] [address] [id number] [address] [place] [address], [place] [address] Feb, [facility] [address] [id number] [address] [place] [address], [place] [address] Feb, [facility] [address] [id number] [address] [place] [address], [place] [address] Feb, [facility] [address] [id number] [address] [place] [address], [place] [address] January, [facility] [address] [id number] [address] [place] [address], [place] [address] January, [facility] [address] [id number] [address] [place] [address], [place] [address] January, [facility] [address] [id number] [address] [place] [address], [place] [address] January, [facility] [address] [id number] [address] [place] [address], [place] [address] January, [facility] [address] [id number] [address] [place] [address], [place] [address] January, [facility] [address] [id number] [address] [place] [address], [place] [address] January, [facility] [address] [id number] [address] [place] [address], [place] [address] January, [facility] [address] [id number] [address] [place] [address], [place] [address] January, [facility] [address] [id number] [address] [place] [address], [place] [address] January, [facility] [address] [id number] [address] [place] [address], [place] [address] January, [facility] [address] [id number] [address] [place] [address], [place] [address] January, [facility] [address] [id number] [address] [place] [address], [place] [address] January, [facility] [address] [id number] [address] [place] [address], [place] [address] January, [facility] [address] [id number] [address] [place] [address], [place] [address] Dec, [facility] [address] [id number] [address] [place] [address], [place] [address] Dec, [facility] [address] [id number] [address] [place] [address], [place] [address] Dec, [facility] [address] [id number] [address] [place] [address], [place] [address] Dec, [facility] [address] [id number] [address] [place] [address], [place] [address] Dec, [facility] [address] [id number] [address] [place] [address], [place] [address] Dec, [facility] [address] [id number] [address] [place] [address], [place] [address] Dec, [facility] [address] [id number] [address] [place] [address], [place] [address] Dec, [facility] [address] [id number] [address] [place] [address], [place] [address] Dec, [facility] [address] [id number] [address] [place] [address], [place] [address] Dec, [facility] [address] [id number] [address] [place] [address], [place] [address] Nov, [facility] [address] [id number] [address] [place] [address], [place] [address] Nov, [facility] [address] [id number] [facility] [address] Nov, [facility] [address] [id number] [address] [place] [address], [place] [address] Nov, [facility] [address] [id number] [address] [place] [address], [place] [address] Nov, [facility] [address] [id number] [address] [place] [address], [place] [address] Nov, [facility] [address] [id number] [address] [place] [address], [place] [address] Nov, [facility] [address] [id number] [address] [place] [address], [place] [address] Nov, [facility] [address] [id number] [address] [place] [address], [place] [address] Nov, [facility] [address] [id number] [address] [place] [address], [place] [address] Nov, [facility] [address] [id number] [address] [place] [address], [place] [address] Oct, [facility] [address] [id number] [address] [place] [address], [place] [address] Oct, [facility] [address] [id number] [address] [place] [address], [place] [address] Oct, [facility] [address] [id number] [address] [place] [address], [place] [address] Oct, [facility] [address] [id number] [address] [place] [address], [place] [address] Oct, [facility] [address] [id number] [address] [place] [address], [place] [address] Oct, [facility] [address] [id number] [address] [place] [address], [place] [address] 14 Oct, 2013 [facility] [address] [id number] [address] [place] [address], [place] [address] Oct, [facility] [address] [id number] [address] [place] [address], [place] [address] Oct, [facility] [address] [id number] [address] [place] [address], [place] [address] Oct, [facility] [address] [id number] [address] [place] [address], [place] [address] Oct, [facility] [address] [id number] [address] [place] [address], [place] [address] Oct, [facility] [address] [id number] [address] [place] [address], [place] [address] Oct, [facility] [address] [id number] [address] [place] [address], [place] [address] Oct, [facility] [address] [id number] [address] [place] [address], [place] [address] Sep, [facility] [address] [id number] [address] [place] [address], [place] [address] Sep, [facility] [address] [id number] [address] [place] [address], [place] [address] Sep, [facility] [address] [id number] [address] [place] [address], [place] [address] Sep, [facility] [address] [id number] [address] [place] [address], [place] [address] Sep, [facility] [address] [id number] [address] [place] [address], [place] [address] Sep, [facility] [address] [id number] [address] [place] [address], [place] [address] Sep, [facility] [address] [id number] [address] [place] [address], [place] [address] Sep, [facility] [address] [id number] [address] [place] [address], [place] [address] Sep, [facility] [address] [id number] [address] [place] [address], [place] [address] Sep, [facility] [address] [id number] [address] [place] [address], [place] [address] Aug, [facility] [address] [id number] [address] [place] [address], [place] [address] Aug, [facility] [address] [id number] [address] [place] [address], [place] [address] Jul, [facility] [address] [id number] [address] [place] [address], [place] [address] Jul, [facility] [address] [id number] [address] [place] [address], [place] [address] Jul, [facility] [address] [id number] [address] [place] [address], [place] [address] Jul, [facility] [address] [id number] [address] [place] [address], [place] [address] Jul, [facility] [address] [id number] [address] [place] [address], [place] [address] Jul, [facility] [address] [id number] [address] [place] [address], [place] [address] Jul, [facility] [address] [id number] [address] [place] [address], [place] [address] Jul, [facility] [address] [id number] [address] [place] [address], [place] [address] Jul, [facility] [address] [id number] [address] [place] [address], [place] [address] Jul, [facility] [address] [id number] [address] [place] [address], [place] [address] Jul, [facility] [address] [id number] [address] [place] [address] Jul, [facility] [address] [id number] [address] [place] [address], [place] [address] Jul, [facility] [address] [id number] [address] [place] [address] Jul, [facility] [address] [id number] [address] [place] [address] Jul, 2012 [facility] [address] [id number] [address] [place] [address] Jul, [facility] [address] [id number] [address] [place] [address], [place] [address] Jul, [facility] [address] [id number] [address] [place] [address] Jul, [facility] [address] [id number] [address] [place] [address], [place] [address] Jul, [facility] [address] [id number] [address] [place] [address] 16 Jun, 2013 [facility] [address] [id number] [address] [place] [address] 16 Jun, 2012 [facility] [address] [id number] [address] [place] [address] 16 Jun, 2012 [facility] [address] [id number] [address] [place] [address] 16 Jun, 2012 [facility] [address] [id number] [address] [place] [address] 16 Jun, 2012 [facility] [address] [id number] [address] [place] [address] 16 Jun, 2012 [facility] [address] [id number] [address] [place] [address] 10 Jun, 2012 [facility] [address] [id number] [address] [place] [address] 10 Jun, 2012 [facility] [address] [id number] [address] [place] [address], [place] [address] Jun, [facility] [address] [id number] [address] [place] [address], [place] [address] Jun, [facility] [address] [id number] [address] [place] [address], [place] [address] Jun, [facility] [address] [id number] [address] [place] [address], [place] [address] May, 2012 [facility] [address] [id number] [address] [place] [address], [place] [address] 25 May, 2012 [facility] [address] [id number] [address] [place] [address], [place] [address] May, 2012 [facility] [address] [id number] [address] [place] [address], [place] [address] 17 May, 2012 [facility] [address] [id number] [address] [place] [address], [place] [address] May, [facility] [address] [id number] [address] [place] [address], [place] [address] May, [facility] [address] [id number] [address] [place] [address], [place] [address] May, [facility] [address] [id number] [address] [place] [address], [place] [address] May, [facility] [address] [id number] [address] [place] [address], [place] [address] Apr, [facility] [address] [id number] [address] [place] [address], [place] [address] Apr, [facility] [address] [id number] [address] [place] [address], [place] [address] Apr, [facility] [address] [id number] [address] [place] [address], [place] [address] Apr, [facility] [address] [id number] [address] [place] [address], [place] [address] Apr, [facility] [address] [id number] [address] [place] [address], [place] [address] Mar, [facility] [address] [id number] [address] [place] [address], [place] [address] Mar, [facility] [address] [id number] [address] [place] [address], [place] [address] Mar, [facility] [address] [id number] [address] [place] [address], [place] [address] Mar, [facility] [address] [id number] [address] [place] [address], [place] [address] Mar, [facility] [address] [id number] [address] [place] [address], [place] [address] Mar, [facility] [address] [id number] [address] [place] [address], [place] [address] Mar, [facility] [address] [id number] [address] [place] [address], [place] [address] Mar, [facility] [address] [id number] [address] [place] [address], [place] [address] Feb, [facility] [address] [id number] [address] [place] [address], [place] [address] Feb, [facility] [address] [id number] [address] [place] [address], [place] [address] January, [facility] [address] [id number] [address] [place] [address], [place] [address] January, [facility] [address] [id number] [address] [place] [address], [place] [address] Dec, [facility] [address] [id number] [address] [place] [address], [place] [address] Dec, [facility] [address] [id number] [address] [place] [address], [place] [address] Nov, [facility] [address] [id number] [address] [place] [address], [place] [address] Nov, [facility] [address] [id number] [address] [place] [address], [place] [address] Nov, [facility] [address] [id number] [address] [place] [address], [place] [address] Nov, [facility] [address] [id number] [address] [place] [address], [place] [address] Oct, [facility] [address] [id number] [address] [place] [address], [place] [address] Oct, [facility] [address] [id number] [address] [place] [address], [place] [address] Oct, [facility] [address] [id number] [address] [place] [address], [place] [address] Oct, [facility] [address] [id number] [address] [place] [address], [place] [address] 16 Oct, 2012 [facility] [address] [id number] [address] [place] [address], [place] [address] 14 Oct, 2012 [facility] [address] [id number] [address] [place] [address], [place] [address] 08 Oct, 2012 [facility] [address] [id number] [address] [place] [address], [place] [address] 07 Oct, 2012 [facility] [address] [id number] [address] [place] [address], [place] [address] 03 Oct, 2012 [facility] [address] [id number] [address] [place] [address], [place] [address] Sep, [facility] [address] [id number] [address] [place] [address], [place] [address] Sep, [facility] [address] [id number] [address] [place] [address], [place] [address] Sep, [facility] [address] [id number] [address] [place] [address], [place] [address] Sep, [facility] [address] [id number] [address] [place] [address], [place] [address] 17 Sep, 2012 [facility] [address] [id number] [address] [place] [address], [place] [address] Sep, [facility] [address] [id number] [address] [place] [address], [place] [address] Sep, [facility] [address] [id number] [address] [place] [address], [place] [address] Sep, [facility] [address] [id number] [address] [place] [address], [place] [address] Aug, [facility] [address] [id number] [address] [place] [address], [place] [address] Aug, [facility] [address] [id number] [address] [place] [address], [place] [address] Aug, [facility] [address] [id number] [address] [place] [address], [place] [address] Aug, [facility] [address] [id number] [address] [place] [address], [place] [address] Aug, [facility] [address] [id number] [address] [place] [address], [place] [address] Aug, [facility] [address] [id number] [address] [place] [address], [place] [address] Aug, [facility] [address] [id number] [address] [place] [address], [place] [address] Aug, [facility] [address] [id number] [address] [place] [address], [place] [address] Jul, [facility] [address] [id number] [address] [place] [address], [place] [address] Jul, [facility] [address] [id number] [address] [place] [address], [place] [address] Jul, [facility] [address] [id number] [address] [place] [address], [place] [address] Jul, [facility] [address] [id number] [address] [place] [address], [place] [address] Jul, [facility] [address] [id number] [address] [place] [address], [place] [address] Jul, [facility] [address] [id number] [address] [place] [address], [place] [address] Jun, [facility] [address] [id number] [address] [place] [address], [place] [address] Jun, [facility] [address] [id number] [address] [place] [address], [place] [address] Jun, [facility] [address] [id number] [address] [place] [address], [place] [address] Jun, [facility] [address] [id number] [address] [place] [address], [place] [address] Jun, [facility] [address] [id number] [address] [place] [address], [place] [address] Jun, [facility] [address] [id number] [address] [place] [address], [place] [address] Jun, [facility] [address] [id number] [address] [place] [address], [place] [address] Jun, [facility] [address] [id number] [address] [place] [address], [place] [address] Jun, [facility] [address] [id number] [address] [place] [address], [place] [address] 26 May, 2012 [facility] [address] [id number] [address] [place] [address], [place] [address] 24 May, 2012 [facility] [address] [id number] [address] [place] [address], [place] [address] 18 May, 2012 [facility] [address] [id number] [address] [place] [address], [place] [address] 30 Apr, 2012 [facility] [address] [id number] [address] [place] [address], [place] [address] Apr, [facility] [address] [id number] [address] [place] [address], [place] [address] Apr, [facility] [address] [id number] [address] [place] [address], [place] [address] Apr, [facility] [address] [id number] [address] [place] [address], [place] [address] Apr, [facility] [address] [id number] [address] [place] [address], [place] [address] Apr, [facility] [address] [id number] [address] [place] [address], [place] [address] Mar, [facility] [address] [id number] [address] [place] [address], [place] [address] Mar, [facility] [address] [id number] [address] [place] [address], [place] [address] Mar, [facility] [address] [id number] [address] [place] [address], [place] [address] Mar, [facility] [address] [id number] [address] [place] [address], [place] [address] Feb, [facility] [address] [id number] [address] [place] [address], [place] [address] Feb, [facility] [address] [id number] [address] [place] [address], [place] [address] Feb, [facility] [address] [id number] [address] [place] [address], [place] [address] Feb, [facility] [address] [id number] [address] [place] [address], [place] [address] Feb, [facility] [address] [id number] [address] [place] [address], [place] [address] January, [facility] [address] [id number] [address] [place] [address], [place] [address] January, [facility] [facility] [address] [id number] [address] [place] [address], [place] [address] January, [facility] [address] [id number] [address] [place] [address], [place] [address] January, [facility] [address] [id number] [address] [place] [address], [place] [address] January, [facility] [address] [id number] [address] [place] [address], [place] [address] January, [facility] [address] [id number] [address] [place] [address], [place] [address] Dec, [facility] [address] [id number] [address] [place] [address], [place] [address] Dec, [facility] [address] [id number] [address] [place] [address], [place] [address] Dec, [facility] [address] [id number] [address] [place] [address], [place] [address] Dec, [facility] [address] [id number] [address] [place] [address], [place] [address] Dec, [facility] [address] [id number] [address] [place] [address], [place] [address] Nov, [facility] [address] [id number] [address] [place] [address], [place] [address] Nov, [facility] [address] [id number] [address] [place] [address], [place] [address] Nov, [facility] [address] [id number] [address] [place] [address], [place] [address] Nov, [facility] [address] [id number] [address] [place] [address], [place] [address] Oct, [facility] [address] [id number] [address] [place] [address], [place] [address] Oct, [facility] [address] [id number] [address] [place] [address], [place] [address] 24 Oct, 2011 [facility] [address] [id number] [address] [place] [address], [place] [address] Oct, [facility] [address] [id number] [address] [place] [address], [place] [address] Oct, [facility] [address] [id number] [address] [place] [address], [place] [address] Sep, [facility] [address] [id number] [address] [place] [address], [place] [address] Sep, [facility] [address] [id number] [address] [place] [address], [place] [address] Sep, [facility] [address] [id number] [address] [place] [address], [place] [address] Sep, [facility] [address] [id number] [address] [place] [address], [place] [address] Sep, [facility] [address] [id number] [address] [place] [address], [place] [address] Sep, [facility] [address] [id number] [address] [place] [address], [place] [address] Aug, [facility] [address] [id number] [address] [place] [address], [place] [address] Aug, [facility] [address] [id number] [address] [place] [address], [place] [address] Aug, [facility] [address] [id number] [address] [place] [address], [place] [address] Jul, [facility] [address] [id number] [address] [place] [address], [place] [address] Jul, [facility] [address] [id number] [address] [place] [address], [place] [address] Jul, [facility] [address] [id number] [address] [place] [address], [place] [address] Jul, [facility] [address] [id number] [address] [place] [address], [place] [address] 31 Jun, 2011 [facility] [address] [id number] [address] [place] [address], [place] [address] 31 Jun, 2011 [facility] [address] [id number] [address] [place] [address], [place] [address] 18 Jun, 2011 [facility] [address] [id number] [address] [place] [address], [place] [address] 10 Jun, 2011 [facility] [address] [id number] [address] [place] [address], [place] [address] Jun, [facility] [address] [id number] [address] [place] [address], [place] [address] 10 Jun, 2011 [facility] [address] [id number] [address] [place] [address], [place] [address] Mar, [facility] [address] [id number] [address] [place] [address], [place] [address] 18 Dec, 2010 [facility] [address] [id number] [address] [place] [address], [place] [address] Dec, [facility] [address] [id number] [address] [place] [address], [place] [address] Nov, [facility] [address] [id number] [address] [place] [address], [place] [address] 16 Nov, 2010 [facility] [address] [id number] [address] [place] [address], [place] [address] Sep, [facility] [address] [id number] [address] [place] [address], [place] [address] Aug, [facility] [address] [id number] [address] [place] [address], [place] [address] Aug, [facility] [address] [id number] [address] [place] [address], [place] [address] Aug, [facility] [address] [id number] [address] [place] [address], [place] [address] 29 Aug, 2010 [facility] [address] [id number] [address] [place] [address], [place] [address] 27 Aug, 2010 [facility] [address] [id number] [address] [place] [address], [place] [address] 14 Aug, 2010 [facility] [address] [id number] [address] [place] [address], [place] [address] 08 Aug, 2010 [facility] [address] [id number] [address] [place] [address], [place] [address] 08 Aug, 2010 [facility] [address] [id number] [address] [place] [address], [place] [address] 07 Aug, 2010 [facility] [address] [id number] [address] [place] [address], [place] [address] 06 Aug, 2010 [facility] [address] [id number] [address] [place] [address], [place] [address] 06 Aug, 2010 [facility] [address] [id number] [address] [place] [address], [place] [address] Aug, [facility] [address] [id number] [address] [place] [address], [place] [address] 30 Jul, 2010 [facility] [address] [id number] [address] [place] [address], [place] [address] 30 Jul, 2010 [facility] [address] [id number] [address] [place] [address], [place] [address] 30 Jul, 2010 [facility] [address] [id number] [address] [place] [address], [place] [address] 17 Jul, 2010 [facility] [address] [id number] [address] [place] [address], [place] [address] 08 Jul, 2010 [facility] [address] [id number] [address] [place] [address], [place] [address] Jul, [facility] [address] [id number] [address] [place] [address], [place] [address] 24 Jun, 2010 [facility] [address] [id number] [address] [place] [address], [place] [address] 19 Jun, 2010 [facility] [address] [id number] [address] [place] [address], [place] [address] 19 Jun, 2010 [facility] [address] [id number] [address] [place] [address], [place] [address] 13 Jun, 2010 [facility] [address] [id number] [address] [place] [address], [place] [address] 16 Apr, 2010 [facility] [address] [id number] [address] [place] [address], [place] [address] Mar, [facility] [address] [id number] [address] [place] [address], [place] [address] 17 Feb, 2010 [facility] [address] [id number] [address] [place] [address], [place] [address] January, [facility] [address] [id number] [address] [place] [address], [place] [address] 15 Dec, 2009 [facility] [address] [id number] [address] [place] [address], [place] [address] Nov, [facility] [address] [id number] [address] [place] [address], [place] [address] 31 Aug, 2009 [facility] [address] [id number] [address] [place] [address], [place] [address] Aug, [facility] [address] [id number] [address] [place] [address], [place] [address] Aug, [facility] [address] [id number] [address] [place] [address], [place] [address] Jul, [facility] [address] [id number] [address] [place] [address], [place] [address] Jul, [facility] [address] [id number] [address] [place] [address], [place] [address] 07 Jul, 2009 [facility] [address] [id number] [address] [place] [address], [place] [address] Jun, [facility] [place] [address] [id number] [address] [place] [address] Jun, [facility] [place] [address] [id number] [address] [place] [address] Jun, [facility] [place] [address] [id number] [address] [place] [address] Jun, [facility] [place] [address] [id number] [address] [place] [address] Jun, [facility] [place] [address] [id number] [address] [place] [address] Jun, [facility] [place] [address] [id number] [address] [place] [address] Apr, [facility] [place] [address] [id number] [address] [place] [address] Apr, [facility] [place] [address] [id number] [address] [place] [id number] Feb, [facility] [place] [address] [id number] [address] [place] [address] January, [facility] [place] [address] [id number] [address] [place] [address] Dec, IMMUNIZATIONS No Known Immunizations SOCIAL HISTORY [...]
--- OUTSIDE RECORDS SUMMARY | 2020-04-11 11:11 | XMS REPORT ---
Author Michele Fuentes Organization [facility] Address [address] [place] [address] Care Team Providers Care Teacher Private Name Role Phone TOBY ROSELINE Unavailable PROBLEMS Type Condition ICD9-CM Code [id number] Code Onset Dates Condition S tatus SNOMED Code Problem Bipolar I disorder, most recent episode (or curr ent) mixed, moderate F31.62 Active 42185547 Problem Anxiety F41.9 Active 97094990 Problem Insomnia, unspecified type G47.00 Act sharon 977189079 Problem Essential hypertension I10 Active 89833529 Problem Morbid obesity E66.01 Active 67158 6002 Problem Polyneuropathy associated with underlying disease G63 Active 229234516 Problem Diabetic polyneuropathy associated with type 2 d iabetes mellitus E11.42 Active 84627592 Problem Chronic diastolic (congestive) heart failure I50.3 2 Active 056046327 Problem Diabetes E11.9 Active 53991922 Problem Bipolar disorder F31.9 Active 137 16579 Problem Chronic pain G89.29 Active 4133758 1 Problem Reactive airway disease J45.909 Active 732708326259 Problem Leukocytosis D72.829 Active 2224832 06 Problem Falling R29.6 Active 480692779 Problem 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 Active 445351887 Problem Pure hypercholesterolemia E78.00 Acti ve 630232418 Problem Dysuria R30.0 Active 32428647 Problem Bipolar disorder, in partial remission, most rec ent episode depressed F31.75 Active 18233276 Problem Hypokalemia E87.6 Active 87120878 Problem Other iron deficiency anemia D50.8 A ctive 04149951 Problem Eustachian tube dysfunction, unspecified laterality H69.80 Active 84623392 Problem Primary osteoarthritis of right knee M17.11 Active 757930884852565 Problem Cough R05 Active 61742696 Problem Skin cancer C44.90 Active 22166523 7 Problem DM neuro manif type II E11.49 Active 70572674 Problem Mild cognitive impairment G31.84 Acti ve 686603602 Problem Benign prostatic hyperplasia with lower urinary tract symptoms, unspecified morphology N40.1 Active 18427 6007 Problem Psychophysiological insomnia F51.04 A ctive 365112287 Problem Type 2 diabetes mellitus with diabetic neuropathy, uns pecified E11.40 Active 15389900 Problem 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 Active 549491209 Problem PVD (peripheral vascular disease) I73.9 Active 772620899 Problem Retinal edema H35.81 Active 277744 6 Problem Chronic lymphocytic leukemia C91.10 A ctive 87577146 Problem Agitation R45.1 Active 773213633 Problem Bilateral primary osteoarthritis of knee M17.0 Active 260748443 Problem Eye exam abnormal R93.8 Active 16 1598350 Problem Anemia of chronic illness D63.8 Acti ve 552916521 Problem Lymphocytosis D72.820 Active 191447 09 Problem Mood disorder F39 Active 323292 05 Problem Bipolar I disorder, most recent episode depressed, moderat e F31.32 Active 621804729 Problem Pressure ulcer of other site, stage 3 L89.893 Active 995383990 Problem Gastroesophageal reflux disease without esophagitis K21.9 Active 911927712 Problem Other secondary acute gout, 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 0 Active 836109882 ALLERGIES No Information ENCOUNTERS Encounter Location Date Diagnosis [facility] [address] [facility] [id number] [address] [place] [id number] Mar, [facility] [address] [facility] [id number] [address] [place] [id number] Mar, [facility] [address] [facility] [id number] [address] [place] [id number] Mar, [facility] [address] [facility] [id number] [address] [place] [id number] Mar, [facility] [address] [facility] [id number] [address] [place] [id number] Feb, [facility] [address] [facility] [id number] [address] [place] [id number] Feb, [facility] [address] [facility] [id number] [address] [place] [id number] 18 Feb, 2020 Bipolar I disorder, most rec ent episode depressed, moderate F31.32 ; Anxiety F41.9 and Mild cognitive impairment G31.84 [facility] [address] [facility] [id number] [address] [place] [id number] 17 Feb, 2020 Chronic pain G89.29 [facility] [address] [facility] [id number] [address] [place] [id number] 17 Feb, 2020 Agitation R45.1 [facility] [address] [facility] [id number] [address] [place] [id number] 17 Feb, 2020 PVD (peripheral vascular dis ease) I73.9 ; Status post CVA Z86.73 ; Status post carotid endarterectomy Z98.890 ; Vertigo R42 ; Mild cognitive impairment G31.84 ; Type 2 diabetes mellitus with diabetic neuropathy, unspecified E11.40 and Essential hypertension I10 [facility] [address] [facility] [id number] [address] [place] [id number] 12 Feb, 2020 [facility] [address] [facility] [id number] [address] [place] [id number] Feb, [facility] [address] [facility] [id number] [address] [place] [id number] January, [facility] [address] [facility] [id number] [address] [place] [id number] January, Chronic pain G89.29 [facility] [address] [facility] [id number] [address] [place] [id number] Dec, [facility] [address] [facility] [id number] [address] [place] [id number] Dec, Chronic pain G89.29 [facility] [address] [facility] [id number] [address] [place] [id number] Dec, [facility] [address] [facility] [id number] [address] [place] [id number] Dec, [facility] [address] [id number] [address] [place] [id number] 07 Dec, 2019 Gastroesophageal reflux dise ase without esophagitis K21.9 and Pure hypercholesterolemia E78.00 [facility] [address] [facility] [id number] [address] [place] [id number] Dec, Mood disorder F39 [place] [address] [facility] [id number] [address] [place] [id number] 31 Nov, 2019 Other secondary acute gout, 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 [place] [address] [id number] [address] [place] [id number] Nov, Gastroesophageal reflux dise ase without esophagitis K21.9 [place] [address] [facility] [id number] [address] [place] [id number] Nov, Chronic pain G89.29 [place] [address] [facility] [id number] [address] [place] [id number] Nov, Bipolar I disorder, most rec ent episode depressed, moderate F31.32 ; Anxiety F41.9 and Mild cognitive impairment G31.84 [place] [address] [facility] [id number] [address] [place] [id number] Nov, [place] [address] [facility] [id number] [address] [place] [id number] Nov, Syncope, unspecified syncope type R55 [place] [address] [facility] [id number] [address] [place] [id number] Nov, Mood disorder F39 [place] [id number] [facility] [id number] [address] [place] [id number] Oct, Chronic pain G89.29 [place] [address] [facility] [id number] [address] [place] [id number] Oct, [place] [address] [facility] [id number] [address] [place] [id number] Oct, Mood disorder F39 [place] [address] [facility] [id number] [address] [place] [id number] 10 Oct, 2019 [facility] [address] [id number] [address] [place] [id number] 10 Oct, 2019 Bipolar disorder, in partial remission, most recent episode depressed F31.75 and Mild cognitive impairment G31.84 [facility] [address] [id number] [address] [place] [id number] 04 Oct, 2019 Mood disorder F39 [facility] [address] [id number] [address] [place] [id number] Sep, [facility] [address] [id number] [address] [place] [id number] Sep, Mood disorder F39 [facility] [address] [id number] [address] [place] [id number] 13 Sep, 2019 Bipolar disorder, in partial remission, most recent episode depressed F31.75 and Mild cognitive impairment G31.84 [facility] [address] [id number] [address] [place] [id number] Sep, Mood disorder F39 [facility] [address] [id number] [address] [place] [id number] Sep, [facility] [address] [id number] [address] [place] [id number] Sep, Mood disorder F39 [facility] [address] [id number] [address] [place] [id number] Sep, [facility] [address] [id number] [address] [place] [id number] Aug, Mood disorder F39 [facility] [address] [id number] [address] [place] [id number] Aug, [facility] [address] [id number] [address] [place] [id number] Aug, [facility] [address] [id number] [address] [place] [id number] Aug, [facility] [address] [id number] [address] [place] [id number] Aug, [facility] [address] [id number] [address] [place] [phone] Aug, [facility] [address] [id number] [address] [place] [id number] Aug, [facility] [address] [id number] [address] [place] [id number] Aug, [facility] [address] [id number] [address] [place] [id number] Aug, Essential hypertension I10 [facility] [address] [id number] [address] [place] [id number] Aug, Bipolar disorder, in partial remission, most recent episode depressed F31.75 and Mild cognitive impairment G31.84 [facility] [address] [id number] [address] [place] [id number] Aug, Mood disorder F39 [facility] [address] [id number] [address] [place] [id number] Aug, [facility] [address] [id number] [address] [place] [id number] Aug, Bipolar disorder, in partial remission, most recent episode depressed F31.75 and Mild cognitive impairment G31.84 [facility] [address] [id number] [address] [place] [id number] Jul, Bipolar disorder, in partial remission, most recent episode depressed F31.75 and Mild cognitive impairment G31.84 [facility] [address] [id number] [address] [place] [id number] Jul, Psychophysiological insomnia F51.04 [facility] [address] [id number] [address] [place] [id number] Jul, [facility] [address] [id number] [address] [place] [id number] Jul, [facility] [address] [id number] [address] [place] [id number] Jul, [facility] [address] [id number] [address] [place] [id number] Jul, [facility] [address] [id number] [address] [place] [id number] Jul, [facility] [address] [facility] [id number] [address] [place] [id number] Jul, [facility] [address] [facility] [id number] [address] [place] [id number] Jul, Bipolar disorder, in partial remission, most recent episode depressed F31.75 and Mild cognitive impairment G31.84 [facility] [address] [facility] [id number] [address] [place] [id number] Jul, Chronic pain G89.29 ; Diabet es E11.9 ; Essential hypertension I10 ; Ill feeling R68.89 ; Local infection of the skin and subcutaneous tissue, unspecified L08.9 and Other injury of unspecified body region, initial encounter T14.8XXA [facility] [address] [facility] [id number] [address] [place] [id number] Jun, Bipolar disorder, in partial remission, most recent episode depressed F31.75 and Mild cognitive impairment G31.84 [facility] [address] [facility] [id number] [address] [place] [id number] Jun, [facility] [address] [facility] [id number] [address] [place] [id number] Jun, Bipolar disorder, in partial remission, most recent episode depressed F31.75 and Mild cognitive impairment G31.84 [facility] [address] [facility] [id number] [address] [place] [id number] Jun, Psychophysiological insomnia F51.04 [facility] [address] [facility] [id number] [address] [place] [id number] Jun, Psychophysiological insomnia F51.04 ; Chronic pain G89.29 ; Bipolar I disorder, most recent episode (or current) mixed, moderate F31.62 ; 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 ; Polyneuropathy associated with underlying disease G63 ; Type 2 diabetes mellitus with diabetic neuropathy, unspecified E11.40 ; FCI (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 Z79.4 and Hyperglycemia R73.9 [facility] [address] [facility] [id number] [address] [place] [id number] Jun, Bipolar disorder, in partial remission, most recent episode depressed F31.75 and Mild cognitive impairment G31.84 [facility] [address] [facility] [id number] [address] [place] [id number] Jun, [place] [address] [facility] [id number] [address] [place] [id number] Jun, Bipolar disorder F31.9 [facility] [address] [facility] [id number] [address] [place] [id number] May, Bipolar disorder, in partial remission, most recent episode depressed F31.75 and Mild cognitive impairment G31.84 [facility] [address] [facility] [id number] [address] [place] [id number] May, [place] [address] [facility] [id number] [address] [place] [id number] Apr, Chronic pain G89.29 and Bipo lar disorder F31.9 [facility] [address] [facility] [id number] [address] [place] [id number] Mar, Bipolar disorder F31.9 and C hronic pain G89.29 [facility] [address] [facility] [id number] [address] [place] [id number] Feb, Bipolar disorder F31.9 [facility] [address] [facility] [id number] [address] [place] [id number] Feb, Cellulitis of right upper ex tremity L03.113 and Skin abrasion T14.8XXA [facility] [address] [facility] [id number] [address] [place] [id number] Feb, Bipolar disorder, in partial remission, most recent episode depressed F31.75 and Mild cognitive impairment G31.84 [facility] [address] [id number] [address] [place] [id number] Feb, Chronic pain G89.29 [facility] [address] [id number] [address] [place] [id number] Feb, Bipolar disorder, in partial remission, most recent episode depressed F31.75 and Mild cognitive impairment G31.84 [facility] [address] [id number] [address] [place] [id number] January, Bipolar disorder, in partial remission, most recent episode depressed F31.75 and Mild cognitive impairment G31.84 [facility] [address] [id number] [address] [place] [id number] January, Chronic pain G89.29 and Bipo lar disorder F31.9 [facility] [address] [id number] [address] [place] [id number] January, Bipolar disorder, in partial remission, most recent episode depressed F31.75 and Mild cognitive impairment G31.84 [facility] [address] [id number] [address] [place] [id number] Dec, [facility] [address] [id number] [address] [place] [id number] Dec, Chronic pain G89.29 and Bipo lar disorder F31.9 [facility] [address] [id number] [address] [place] [id number] Dec, Edema of both lower extremit ies R60.0 [facility] [address] [id number] [address] [place] [id number] Dec, Bipolar disorder F31.9 [facility] [address] [id number] [address] [place] [id number] Dec, Bipolar disorder, in partial remission, most recent episode depressed F31.75 and Mild cognitive impairment G31.84 [facility] [address] [place] [id number] [address] [place] [id number] Nov, [place] [address] [place] [id number] [address] [place] [id number] Nov, Chronic pain G89.29 [place] [address] [place] [id number] [address] [place] [id number] Nov, Bipolar disorder, in partial remission, most recent episode depressed F31.75 and Mild cognitive impairment G31.84 [place] [address] [address] Nov, Bipolar disorder F31.9 [place] [address] [id number] 04 Nov, 2018 Encounter for Medicare annua [...] unspecified morphology N40.1 and Essential hypertension I10 [place] [address] [place] [id number] [address] [place] [id number] Oct, Chronic pain G89.29 [place] [address] [place] [id number] [address] [place] [id number] Oct, Diabetes E11.9 [place] [address] [place] [id number] [address] [place] [id number] Oct, Bipolar I disorder, most rec ent episode (or current) mixed, moderate F31.62 and Mild cognitive impairment G31.84 [place] [address] [place] [id number] [address] [place] [id number] Oct, Bipolar I disorder, most rec ent episode (or current) mixed, moderate F31.62 and Mild cognitive impairment G31.84 [place] [address] [facility] [id number] [address] [place] [id number] Sep, Bipolar I disorder, most rec ent episode (or current) mixed, moderate F31.62 and Mild cognitive impairment G31.84 [place] [address] [place] [id number] [address] [place] [id number] Sep, [place] [address] [place] [id number] [address] [place] [id number] Sep, Diabetes E11.9 ; Hypoxia R09 .02 ; Hyperglycemia R73.9 ; Therapeutic drug monitoring Z51.81 ; BMI 50.0-59.9, adult Z68.43 and Skin cancer C44.90 [place] [address] [place] [id number] [address] [place] [id number] Sep, Chronic pain G89.29 [place] [id number] [address] [place] [id number] Sep, Bipolar I disorder, most rec ent episode (or current) mixed, moderate F31.62 [place] [address] [place] [id number] [address] [place] [id number] Sep, [place] [address] [place] [id number] [address] [place] [id number] Sep, [place] [address] [place] [id number] [address] [place] [id number] Aug, Chronic pain G89.29 [place] [address] [place] [id number] [address] [place] [id number] Aug, Bipolar I disorder, most rec ent episode (or current) mixed, moderate F31.62 [place] [address] [place] [id number] [address] [place] [id number] Aug, Bipolar I disorder, most rec ent episode (or current) mixed, moderate F31.62 and Mild cognitive impairment G31.84 [place] [address] [place] [id number] [address] [place] [id number] Jul, [facility] [address] [id number] [address] [place] [id number] Jul, Chronic pain G89.29 [facility] [address] [id number] [address] [place] [id number] Jul, Bipolar I disorder, most rec ent episode (or current) mixed, moderate F31.62 and Mild cognitive impairment G31.84 [facility] [address] [id number] [address] [place] [id number] Jul, Bipolar I disorder, most rec ent episode (or current) mixed, moderate F31.62 and MCI (mild cognitive impairment) G31.84 [facility] [address] [id number] [address] [place] [id number] Jul, [facility] [address] [id number] [address] [place] [id number] Jul, [facility] [address] [id number] [address] [place] [id number] Jul, Bipolar I disorder, most rec ent episode (or current) mixed, moderate F31.62 [facility] [address] [id number] [address] [place] [id number] Jul, Chronic pain G89.29 [facility] [address] [id number] [address] [place] [id number] Jun, Bipolar I disorder, most rec ent episode (or current) mixed, moderate F31.62 [facility] [address] [id number] [address] [place] [id number] Jun, Pre-procedure lab exam Z01.8 12 [facility] [address] [id number] [address] [place] [id number] Jun, [facility] [address] [id number] [place] [address] [id number] Jun, [facility] [address] [id number] [address] [place] [id number] Jun, [facility] [address] [place] [id number] [address] [place] [id number] Jun, Forgetfulness R68.89 ; Pre-s yncope R55 ; Localized edema R60.0 ; Other iron deficiency anemia D50.8 and BMI 50.0-59.9, adult Z68.43 [place] [id number] [place] [id number] Jun, Chronic pain G89.29 [place] [address] [id number] [place] [id number] Jun, Chronic pain G89.29 [place] [address] [place] [place] [id number] [place] [id number] Jun, Bipolar I disorder, most rec ent episode (or current) mixed, moderate F31.62 [place] [address] [id number] [place] [id number] May, Chronic pain G89.29 [place] [address] [id number] [place] [id number] Apr, [place] [address] [id number] [place] [id number] Apr, Chronic pain G89.29 [place] [address] [id number] [place] [id number] Apr, Primary osteoarthritis of ri ght knee M17.11 [place] [address] [id number] [address] [place] [id number] Mar, [place] [address] [place] [id number] [address] [place] [id number] Mar, BMI 50.0-59.9, adult Z68.43 and Bipolar disorder, in partial remission, most recent episode depressed F31.75 [place] [address] [place] [id number] [address] [place] [id number] Mar, Diabetes E11.9 ; Pure hyperc holesterolemia E78.00 ; Essential hypertension I10 ; Nausea with vomiting, unspecified R11.2 and Headache, unspecified headache type R51 [place] [id number] [place] [id number] [address] [place] [id number] Mar, Bipolar I disorder, most rec ent episode (or current) mixed, moderate F31.62 [place] [address] [place] [id number] [address] [place] [id number] Mar, Bipolar I disorder, most rec ent episode (or current) mixed, moderate F31.62 [place] [address] [place] [id number] [address] [place] [id number] Mar, Chronic pain G89.29 [place] [address] [place] [id number] [place] [phone] Mar, Bipolar I disorder, most rec ent episode (or current) mixed, moderate F31.62 [place] [address] [place] [id number] [place] [phone] Feb, Bipolar I disorder, most rec ent episode (or current) mixed, moderate F31.62 [place] [address] [place] [id number] [place] [id number] 14 Feb, 2018 Chronic pain G89.29 [facility] [address] [place] [id number] [address] [place] [id number] Feb, Decubitus ulcer of right josselin t, stage 3 L89.893 and BMI 50.0-59.9, adult Z68.43 [place] [address] [place] [id number] [address] [place] [id number] Feb, Bipolar I disorder, most rec ent episode (or current) mixed, moderate F31.62 [place] [address] [place] [id number] [address] [place] [id number] Feb, [place] [address] [place] [id number] [address] [place] [id number] January, [place] [address] [place] [id number] [address] [place] [id number] January, Chronic pain G89.29 [facility] [address] [place] [id number] [address] [place] [id number] January, Bipolar I disorder, most rec ent episode (or current) mixed, moderate F31.62 [facility] [address] [place] [id number] [address] [place] [id number] January, Bipolar I disorder, most rec ent episode (or current) mixed, moderate F31.62 [place] [address] [place] [id number] [address] [place] [id number] Dec, Bipolar I disorder, most rec ent episode (or current) mixed, moderate F31.62 and BMI 50.0-59.9, adult Z68.43 [place] [address] [place] [id number] [place] [phone] Dec, Bipolar I disorder, most rec ent episode (or current) mixed, moderate F31.62 [place] [address] [place] [id number] [address] [place] [id number] Dec, Chronic pain G89.29 [place] [address] [place] [id number] [place] [id number] Dec, DM neuro manif type II E11.4 9 ; Right flank pain R10.9 ; 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 ; Encounter for medication monitoring Z51.81 and BMI 50.0-59.9, adult Z68.43 [place] [address] [place] [id number] [address] [place] [id number] Dec, Bipolar I disorder, most rec ent episode (or current) mixed, moderate F31.62 [place] [address] [place] [id number] [address] [place] [id number] Nov, Bipolar I disorder, most rec ent episode (or current) mixed, moderate F31.62 [place] [address] [place] [id number] [address] [place] [id number] Nov, Chronic pain G89.29 [facility] [address] [facility] [id number] [address] [place] [id number] Nov, Bipolar I disorder, most rec ent episode (or current) mixed, moderate F31.62 [facility] [address] [facility] [id number] [address] [place] [id number] Nov, Hypokalemia E87.6 [facility] [address] [place] [id number] [address] [place] [id number] Nov, Bipolar I disorder, most rec ent episode (or current) mixed, moderate F31.62 [place] [address] [place] [id number] [address] [place] [address] Oct, Chronic pain G89.29 [facility] [address] [place] [id number] [address] [place] [id number] Oct, BMI 50.0-59.9, adult Z68.43 and Bipolar I disorder, most recent episode (or current) mixed, moderate F31.62 [place] [address] [place] [id number] [address] [place] [id number] Oct, Bipolar I disorder, most rec ent episode (or current) mixed, moderate F31.62 [facility] [address] [place] [id number] [address] [place] [id number] Oct, [place] [address] [place] [id number] [address] [place] [id number] Oct, Hypokalemia E87.6 [facility] [address] [place] [id number] [address] [place] [id number] Oct, DM neuro manif type II E11.4 9 [facility] [address] [facility] [id number] [address] [place] [id number] Oct, Bipolar I disorder, most rec ent episode (or current) mixed, moderate F31.62 [place] [address] [place] [id number] [address] [place] [id number] 20 Oct, 2017 Bipolar I disorder, most rec ent episode (or current) mixed, moderate F31.62 [place] [address] [address] 14 Oct, 2017 Hyperkalemia E87.5 ; Falling R29.6 ; BMI 50.0-59.9, adult Z68.43 and Acute left ankle pain M25.572 [place] [address] [address] 08 Oct, 2017 DM neuro manif type II E11.[address] [address] Oct, [place] [address] [address] Sep, Chronic pain G89.29 [place] [address] [address] Sep, [place] [address] [phone] Sep, Bilateral primary osteoarthr itis of knee M17.[address] [address] Sep, Generalized edema R60.[address] [address] Sep, Bipolar I disorder, most rec ent episode (or current) mixed, moderate F31.62 [place] [address] [address] 15 Sep, 2017 Hypoxia R09.02 ; Other hyper volemia E87.79 ; Diabetes E11.9 ; Retinal edema H35.81 ; Hypokalemia E87.6 ; 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 ; Anemia of chronic illness D63.8 and BMI 50.0- 59.9, adult Z68.43 [place] [address] [address] Sep, [facility] [address] [facility] [id number] [address] [place] [id number] Sep, Bipolar I disorder, most rec ent episode (or current) mixed, moderate F31.62 [facility] [address] [facility] [id number] [address] [place] [id number] Aug, Chronic pain G89.29 [facility] [address] [facility] [id number] [address] [place] [id number] Aug, Generalized edema R60.1 [facility] [address] [facility] [id number] [address] [place] [id number] Aug, [facility] [address] [facility] [id number] [address] [place] [id number] Aug, [facility] [address] [facility] [id number] [address] [place] [id number] Aug, Bipolar I disorder, most rec ent episode (or current) mixed, moderate F31.62 [facility] [address] [facility] [id number] [address] [place] [id number] 07 Aug, 2017 Bipolar I disorder, most rec ent episode (or current) mixed, moderate F31.62 [facility] [address] [facility] [id number] [address] [place] [id number] 04 Aug, 2017 Chronic pain G89.29 [facility] [address] [facility] [id number] [address] [place] [id number] 30 Jul, 2017 Bipolar I disorder, most rec ent episode (or current) mixed, moderate F31.62 [facility] [address] [facility] [id number] [address] [place] [id number] Jul, Bipolar I disorder, most rec ent episode (or current) mixed, moderate F31.62 and BMI 60.0-69.9, adult Z68.44 [facility] [address] [facility] [id number] [address] [place] [id number] 16 Jul, 2017 Bipolar I disorder, most rec ent episode (or current) mixed, moderate F31.62 [facility] [address] [id number] [address] [place] [id number] Jul, Chronic pain G89.29 [facility] [address] [facility] [id number] [address] [place] [id number] Jul, Bipolar I disorder, most rec ent episode (or current) mixed, moderate F31.62 [facility] [address] [id number] [address] [place] [id number] Jun, Polyneuropathy associated wi th underlying disease G63 and Diabetes E11.9 [facility] [address] [id number] [address] [place] [id number] Jun, Bipolar I disorder, most rec ent episode (or current) mixed, moderate F31.62 [facility] [address] [facility] [id number] [address] [place] [id number] Jun, Chronic pain G89.29 [facility] [address] [id number] [address] [place] [id number] May, Bipolar I disorder, most rec ent episode (or current) mixed, moderate F31.62 [facility] [address] [facility] [id number] [address] [place] [id number] May, Bipolar I disorder, most rec ent episode (or current) mixed, moderate F31.62 [facility] [address] [facility] [id number] [address] [place] [id number] 20 May, 2017 Diabetic polyneuropathy asso ciated with type 2 diabetes mellitus E11.42 [facility] [address] [id number] [address] [place] [id number] 18 May, 2017 Bipolar I disorder, most rec ent episode (or current) mixed, moderate F31.62 [facility] [address] [facility] [id number] [address] [place] [id number] 13 May, 2017 Bipolar I disorder, most rec ent episode (or current) mixed, moderate F31.62 [facility] [address] [facility] [id number] [address] [place] [id number] May, Chronic pain G89.29 [facility] [address] [facility] [id number] [address] [place] [id number] Apr, Bipolar I disorder, most rec ent episode (or current) mixed, moderate F31.62 [facility] [address] [facility] [id number] [address] [place] [id number] Apr, [facility] [address] [facility] [id number] [address] [place] [id number] Apr, Chronic pain G89.29 and DM n euro manif type II E11.49 [facility] [address] [facility] [id number] [address] [place] [id number] Apr, [facility] [address] [facility] [id number] [address] [place] [id number] Apr, Bipolar I disorder, most rec ent episode (or current) mixed, moderate F31.62 [facility] [address] [facility] [id number] [address] [place] [id number] Apr, Chronic pain G89.29 [facility] [address] [facility] [id number] [address] [place] [id number] Apr, Iliotibial band syndrome, le ft M76.32 [facility] [address] [facility] [id number] [address] [place] [id number] Apr, Bipolar I disorder, most rec ent episode (or current) mixed, moderate F31.62 [facility] [address] [facility] [id number] [address] [place] [id number] Mar, Bipolar I disorder, most rec ent episode (or current) mixed, moderate F31.62 [facility] [address] [facility] [id number] [address] [place] [id number] Mar, Bipolar I disorder, most rec ent episode (or current) mixed, moderate F31.62 [facility] [address] [facility] [id number] [address] [place] [phone] Mar, [facility] [address] [facility] [id number] [address] [place] [id number] Mar, Bipolar I disorder, most rec ent episode (or current) mixed, moderate F31.62 [facility] [address] [facility] [id number] [address] [place] [id number] Mar, Chronic pain G89.29 [facility] [address] [facility] [id number] [address] [place] [id number] Mar, Bipolar I disorder, most rec ent episode (or current) mixed, moderate F31.62 [facility] [address] [facility] [id number] [address] [place] [id number] Mar, Bipolar I disorder, most rec ent episode (or current) mixed, moderate F31.62 [facility] [address] [facility] [id number] [address] [place] [id number] Mar, Acute pain of left knee M25. 562 ; Left hip pain M25.552 ; Generalized edema R60.1 and Tongue swelling R22.0 [facility] [address] [facility] [id number] [address] [place] [id number] Mar, [facility] [address] [facility] [id number] [address] [place] [id number] Feb, Chronic pain G89.29 [facility] [address] [facility] [id number] [address] [place] [id number] Feb, Diabetes E11.9 [facility] [address] [id number] [address] [place] [id number] January, Chronic pain G89.29 [facility] [address] [facility] [id number] [address] [place] [id number] January, [facility] [address] [facility] [id number] [address] [place] [id number] January, Bipolar I disorder, most rec ent episode (or current) mixed, moderate F31.62 [facility] [address] [id number] [address] [place] [id number] Dec, Bipolar I disorder, most rec ent episode (or current) mixed, moderate F31.62 [facility] [address] [facility] [id number] [address] [place] [id number] Dec, Chronic pain G89.29 [facility] [address] [id number] [address] [place] [id number] Dec, Bipolar I disorder, most rec ent episode (or current) mixed, moderate F31.62 [facility] [address] [facility] [id number] [address] [place] [id number] Dec, Diabetes E11.9 ; Essential h ypertension I10 ; Chronic pain G89.29 and Morbid obesity E66.01 [facility] [address] [facility] [id number] [address] [place] [id number] Dec, [facility] [address] [facility] [id number] [address] [place] [phone] Dec, Bipolar I disorder, most rec ent episode (or current) mixed, moderate F31.62 [facility] [address] [facility] [id number] [address] [place] [id number] Dec, Bipolar I disorder, most rec ent episode (or current) mixed, moderate F31.62 [facility] [address] [facility] [id number] [address] [place] [id number] Nov, Chronic pain G89.29 [facility] [address] [id number] [address] [place] [id number] Nov, Bipolar I disorder, most rec ent episode (or current) mixed, moderate F31.62 [facility] [address] [facility] [id number] [address] [place] [id number] Nov, [facility] [address] [facility] [id number] [address] [place] [id number] Nov, Bipolar I disorder, most rec ent episode (or current) mixed, moderate F31.62 [place] [id number] [facility] [id number] [address] [place] [id number] Nov, Bipolar I disorder, most rec ent episode (or current) mixed, moderate F31.62 [facility] [address] [facility] [id number] [address] [place] [id number] Nov, [facility] [address] [facility] [id number] [address] [place] [id number] Nov, [facility] [address] [facility] [id number] [address] [place] [id number] Nov, [facility] [address] [facility] [id number] [address] [place] [id number] Oct, Chronic pain G89.29 [facility] [address] [place] [id number] [address] [place] [id number] Oct, Bipolar I disorder, most rec ent episode (or current) mixed, moderate F31.62 [facility] [address] [place] [id number] [address] [place] [id number] Oct, [facility] [address] [place] [id number] [address] [place] [id number] Oct, Chronic pain G89.29 ; Diabet es E11.9 ; Anxiety F41.9 and 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 [place] [address] [facility] [id number] [address] [place] [id number] Oct, [facility] [address] [facility] [id number] [address] [place] [id number] Oct, Diabetes E11.9 [facility] [address] [place] [id number] [address] [place] [id number] Oct, Bipolar I disorder, most rec ent episode (or current) mixed, moderate F31.62 [facility] [address] [place] [id number] [address] [place] [address] Sep, Chronic pain G89.29 [facility] [address] [id number] [address] [place] [id number] Sep, Chronic pain G89.29 [facility] [address] [id number] [address] [place] [id number] Aug, Chronic pain G89.29 [facility] [address] [facility] [id number] [address] [place] [id number] Jul, [facility] [address] [id number] [address] [place] [id number] Jul, Diabetes E11.9 [facility] [address] [id number] [address] [place] [id number] Jul, Chronic pain G89.29 [facility] [address] [facility] [id number] [address] [place] [id number] Jul, Bipolar I disorder, most rec ent episode (or current) mixed, moderate F31.62 [facility] [address] [facility] [id number] [address] [place] [id number] Jun, Bipolar I disorder, most rec ent episode (or current) mixed, moderate F31.62 [facility] [address] [facility] [id number] [address] [place] [id number] Jun, [facility] [address] [facility] [id number] [address] [place] [id number] Jun, Bipolar I disorder, most rec ent episode (or current) mixed, moderate F31.62 [facility] [address] [facility] [id number] [address] [place] [id number] 30 May, 2016 Insomnia, unspecified type G 47.00 [facility] [address] [facility] [id number] [address] [place] [id number] May, Bipolar I disorder, most rec ent episode (or current) mixed, moderate F31.62 [facility] [address] [facility] [id number] [address] [place] [id number] 14 May, 2016 [facility] [address] [place] [id number] [address] [place] [id number] May, Bipolar I disorder, most rec ent episode (or current) mixed, moderate F31.62 [place] [address] [place] [id number] [address] [place] [id number] May, Diabetes E11.9 and Essential hypertension I10 [place] [address] [place] [id number] [place] [id number] Apr, Chronic pain G89.29 [place] [address] [id number] [place] [id number] Apr, Bipolar I disorder, most rec ent episode (or current) mixed, moderate F31.62 [place] [address] [id number] [place] [id number] Apr, [place] [address] [id number] Apr, [place] [address] [id number] Mar, Chronic pain G89.29 ; Headac he, unspecified headache type R51 ; Neuropathy G62.9 ; Pain of right hip joint M25.551 and Essential hypertension I10 [place] [address] [id number] [place] [id number] Mar, Chronic pain G89.29 [place] [address] [id number] [place] [id number] Mar, Bipolar I disorder, most rec ent episode (or current) mixed, moderate F31.62 [place] [address] [id number] [place] [id number] Feb, Bipolar I disorder, most rec ent episode (or current) mixed, moderate F31.62 and Insomnia, unspecified type G47.00 [place] [id number] [place] [id number] Feb, Chronic pain G89.29 [place] [address] [id number] [place] [id number] Feb, Bipolar I disorder, most rec ent episode (or current) mixed, moderate F31.62 [facility] [address] [id number] [place] [id number] January, Bipolar I disorder, most rec ent episode (or current) mixed, moderate F31.62 [facility] [address] [id number] [address] [place] [id number] January, Chronic pain G89.29 [facility] [address] [id number] [address] [place] [id number] January, Chronic pain G89.29 and Esse ntial hypertension I10 [facility] [address] [id number] [address] [place] [id number] January, Bipolar I disorder, most rec ent episode (or current) mixed, moderate F31.62 [facility] [address] [id number] [address] [place] [id number] Dec, [facility] [address] [id number] [address] [place] [id number] Dec, [facility] [address] [id number] [address] [place] [phone] Dec, [facility] [address] [id number] [address] [place] [id number] Dec, [facility] [address] [id number] [address] [place] [id number] Nov, Reactive airway disease J45. 909 [facility] [address] [id number] [address] [place] [id number] Nov, [facility] [address] [id number] [address] [place] [id number] Nov, [facility] [address] [id number] [address] [place] [id number] Nov, [facility] [address] [id number] Nov, [place] [address] [id number] Nov, Onychomycosis B35.1 ; Hammer toe M20.40 ; Mackay or callus L84 and DM neuro manif type II E11.[address] [address] Nov, Chronic pain G89.29 ; Leukoc ytosis D72.829 and Diabetes E11.9 [place] [address] [id number] Nov, [place] [address] [address] Oct, Bronchitis J40 [address] [address] Oct, [place] [address] [address] Oct, [address] [address] Oct, Mastoiditis, unspecified lat erality H70.90 and Type 2 diabetes mellitus with complication E11.[address] [address] Sep, [place] [address] [address] Sep, Dysuria R30.0 ; Cough R05 ; Benign prostatic hyperplasia with lower urinary tract symptoms, unspecified morphology N40.1 ; Hypokalemia E87.6 and Eustachian tube dysfunction, unspecified laterality H69.[address] [address] Sep, Moderate mixed bipolar I dis order F31.62 [place] [address] [place] [address] Sep, Hypokalemia E87.6 [facility] [address] [facility] [id number] [address] [place] [id number] Sep, [facility] [address] [facility] [id number] [address] [place] [id number] Sep, Upper respiratory tract infe ction, unspecified type J06.9 [facility] [address] [id number] [address] [place] [id number] Aug, [facility] [address] [id number] [address] [place] [id number] Aug, Dysuria R30.0 [facility] [address] [id number] [address] [place] [id number] Aug, [facility] [address] [facility] [id number] [address] [place] [id number] Jul, [facility] [address] [id number] [address] [place] [id number] Jul, [facility] [address] [facility] [id number] [address] [place] [id number] Jul, [facility] [address] [facility] [id number] [address] [place] [id number] Jul, [facility] [address] [facility] [id number] [address] [place] [id number] Jun, [facility] [address] [id number] [address] [place] [id number] Jun, [facility] [address] [id number] [address] [place] [id number] Jun, [facility] [address] [facility] [id number] [address] [place] [id number] May, [facility] [address] [facility] [id number] [address] [place] [id number] May, Bipolar I disorder, most rec ent episode (or current) mixed, moderate 296.62 [facility] [address] [id number] [address] [place] [id number] May, [facility] [address] [facility] [id number] [address] [place] [id number] May, Bipolar I disorder, most rec ent episode (or current) mixed, moderate 296.62 and Major depressive disorder, recurrent episode, severe, specified as with psychotic behavior 296.34 [facility] [address] [id number] [address] [place] [id number] May, Bipolar I disorder, most rec ent episode (or current) mixed, moderate 296.62 [facility] [address] [id number] [address] [place] [id number] May, [facility] [address] [facility] [id number] [address] [place] [id number] Apr, [facility] [address] [facility] [id number] [address] [place] [phone] Apr, [facility] [address] [facility] [id number] [address] [place] [id number] Apr, Unspecified disorder of kidn ey and ureter 593.9 and Diabetes mellitus type 2, uncontrolled 250.02 [facility] [address] [facility] [id number] [address] [place] [id number] Apr, [facility] [address] [id number] [address] [place] [id number] Apr, [facility] [address] [id number] [address] [place] [id number] Apr, [facility] [address] [facility] [id number] [address] [place] [id number] Apr, [facility] [address] [facility] [id number] [address] [place] [id number] Apr, Diabetes mellitus type II, u ncontrolled 250.02 [facility] [address] [facility] [id number] [address] [place] [id number] Apr, [facility] [address] [facility] [id number] [address] [place] [id number] Mar, [facility] [address] [facility] [id number] [address] [place] [id number] Mar, [facility] [address] [facility] [id number] [address] [place] [id number] Mar, [facility] [address] [place] [id number] [address] [place] [id number] Mar, Major depressive disorder, r ecurrent episode, severe, specified as with psychotic behavior 296.34 and Bipolar I disorder, most recent episode (or current) mixed, moderate 296.62 [facility] [address] [place] [id number] [address] [place] [id number] Mar, Diabetes 250.00 ; Anuria 788 .5 ; Nausea and vomiting 787.01 and Diarrhea 787.91 [facility] [address] [facility] [id number] [address] [place] [id number] Mar, Diabetes 250.00 [facility] [address] [place] [id number] [address] [place] [id number] Mar, [facility] [address] [place] [id number] [address] [place] [id number] Mar, Diabetes 250.00 [facility] [address] [facility] [id number] [address] [place] [id number] Mar, [facility] [address] [facility] [id number] [address] [place] [phone] Mar, [facility] [address] [place] [id number] [address] [place] [id number] Mar, [facility] [address] [place] [id number] [address] [place] [id number] Mar, [facility] [address] [place] [id number] [address] [place] [id number] Mar, Bipolar I disorder, most rec ent episode (or current) mixed, moderate 296.62 and Major depressive disorder, recurrent episode, severe, specified as with psychotic behavior 296.[address] [id number] Mar, Magnesium deficiency 275.2 ; Hypokalemia 276.8 ; Nausea & vomiting 787.01 and Diabetes mellitus type 2, uncontrolled 250.[address] [id number] Feb, [address] [address] Feb, Bipolar I disorder, most rec ent episode (or current) mixed, moderate 296.[address] [address] Feb, Nausea and vomiting 787.01 ; Left elbow pain 719.42 ; Anuria 788.5 and Diabetes 250.[address] [address] Feb, [address] [address] Feb, Hypopotassemia 276.8 and Hyp okalemia 276.[address] [address] Feb, Hypopotassemia 276.8 and Hyp okalemia 276.[address] [address] Feb, Seborrheic keratoses 702.[address] [address] Feb, Hypopotassemia 276.8 and Low magnesium levels 275.[address] [address] January, [place] [id number] [place] [id number] January, [facility] [address] [id number] [address] [place] [id number] January, [facility] [address] [id number] [address] [place] [id number] January, Scalp lesion 709.9 [facility] [address] [id number] [address] [place] [id number] January, [facility] [address] [id number] [address] [place] [id number] Dec, Tear of medial cartilage or meniscus of knee, current 836.0 and Chondromalacia 733.92 [facility] [address] [id number] [address] [place] [phone] Dec, [facility] [address] [id number] [address] [place] [id number] Dec, [facility] [address] [id number] [address] [place] [id number] Dec, Squamous cell carcinoma, 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 [facility] [address] [id number] [address] [place] [id number] 14 Dec, 2014 [facility] [address] [id number] [address] [place] [id number] Dec, [facility] [address] [id number] [address] [place] [id number] Nov, [facility] [address] [id number] [address] [place] [id number] Nov, [facility] [address] [id number] [address] [place] [id number] Nov, [facility] [address] [id number] [address] [place] [id number] Nov, [facility] [address] [id number] [address] [place] [id number] Nov, [facility] [place] [facility] [address] [id number] [address] [place] [address], [place] [id number] Nov, [facility] [place] [facility] [address] [id number] [address] [place] [address], [place] [id number] Nov, [facility] [place] [facility] [address] [id number] [address] [place] [address], [place] [id number] Nov, 2014 [facility] [place] [facility] [address] [id number] [address] [place] [address], [place] [id number] Nov, [facility] [place] [facility] [address] [id number] [address] [place] [address], [place] [id number] Nov, [facility] [place] [facility] [address] [id number] [address] [place] [id number] Nov, [facility] [place] [facility] [address] [id number] [address] [place] [address], [place] [id number] Nov, [facility] [place] [facility] [address] [id number] [address] [place] [phone] Oct, 2014 [facility] [place] [facility] [address] [id number] [address] [place] [phone] Oct, 2014 [facility] [place] [facility] [address] [id number] [address] [place] [id number] Oct, 2014 [facility] [place] [facility] [address] [id number] [address] [place] [phone] Oct, 2014 [facility] [place] [facility] [address] [id number] [address] [place] [id number] Oct, 2014 [facility] [place] [facility] [address] [id number] [address] [place] [id number] Oct, 2014 [facility] [place] [facility] [address] [id number] [address] [place] [phone] Oct, 2014 [facility] [place] [facility] [address] [id number] [address] [place] [id number] Oct2014 [facility] [place] [facility] [address] [id number] [address] [place] [address], [place] [id number] Oct, [facility] [address] [id number] [address] [place] [address], [place] [id number] Sep, [facility] [address] [id number] [address] [place] [address], [place] [id number] Sep, [facility] [address] [id number] [address] [place] [address], [place] [id number] Sep, [facility] [address] [id number] [address] [place] [address], [place] [id number] Sep, [facility] [address] [id number] [address] [place] [address], [place] [id number] Sep, [facility] [address] [id number] [address] [place] [address], [place] [id number] Sep, [facility] [address] [id number] [address] [place] [address], [place] [id number] Sep, [facility] [address] [id number] [address] [place] [address], [place] [id number] Sep, [facility] [address] [id number] [address] [place] [address], [place] [id number] Sep, [facility] [address] [id number] [address] [place] [address], [place] [id number] Sep, [facility] [address] [id number] [address] [place] [address], [place] [id number] Sep, [facility] [address] [id number] [address] [place] [address], [place] [id number] Sep, [facility] [address] [id number] [address] [place] [address], [place] [id number] Sep, [facility] [address] [id number] [address] [place] [address], [place] [id number] Sep, [facility] [address] [id number] [address] [place] [address], [place] [id number] Sep, [facility] [address] [id number] [address] [place] [address], [place] [id number] Sep, [facility] [address] [id number] [address] [place] [address], [place] [id number] Aug, [facility] [address] [id number] [address] [place] [address], [place] [id number] Aug, [facility] [address] [id number] [address] [place] [address], [place] [id number] Aug, [facility] [address] [id number] [address] [place] [address], [place] [id number] Aug, [facility] [address] [id number] [address] [place] [address], [place] [id number] Aug, [facility] [address] [id number] [address] [place] [address], [place] [id number] Aug, [facility] [address] [id number] [address] [place] [address], [place] [id number] Aug, [facility] [address] [id number] [address] [place] [address], [place] [id number] Aug, [facility] [address] [id number] [address] [place] [address], [place] [id number] Aug, [facility] [address] [id number] [address] [place] [address], [place] [id number] Aug, [facility] [address] [id number] [address] [place] [address], [place] [id number] Aug, [facility] [place] [facility] [address] [place] [id number] Aug, [facility] [address] [id number] [address] [place] [address], [place] [id number] Aug, [facility] [address] [id number] [address] [place] [address], [place] [id number] Aug, [facility] [address] [id number] [address] [place] [address], [place] [id number] 10 Aug, 2014 [facility] [address] [id number] [address] [place] [address], [place] [id number] Aug, [facility] [address] [id number] [address] [place] [address], [place] [id number] Aug, [facility] [address] [id number] [address] [place] [address], [place] [id number] Aug, [facility] [place] [facility] [address] [id number] [address] [place] [address], [place] [id number] Aug, [facility] [address] [id number] [address] [place] [address], [place] [id number] Aug, [facility] [address] [id number] [address] [place] [address], [place] [id number] Aug, [facility] [address] [id number] [address] [place] [address], [place] [id number] Aug, [facility] [address] [id number] [address] [place] [address], [place] [id number] Aug, [facility] [address] [id number] [address] [place] [address], [place] [id number] Aug, [facility] [address] [id number] [address] [place] [address], [place] [id number] Aug, [facility] [place] [facility] [address] [id number] [address] [place] [address], [place] [id number] Aug, [facility] [place] [facility] [address] [id number] [address] [place] [address], [place] [id number] Aug, [facility] [place] [facility] [address] [id number] [address] [place] [address], [place] [id number] Aug, [facility] [place] [facility] [address] [id number] [address] [place] [address], [place] [id number] Aug, [facility] [place] [facility] [address] [id number] [address] [place] [address], [place] [id number] Aug, [facility] [place] [facility] [address] [id number] [address] [place] [address], [place] [id number] Jul, [facility] [place] [facility] [address] [id number] [address] [place] [address], [place] [id number] Jul, [facility] [place] [facility] [address] [id number] [address] [place] [address], [place] [id number] Jul, [facility] [place] [facility] [address] [id number] [address] [place] [address], [place] [id number] Jul, [facility] [place] [facility] [address] [id number] [address] [place] [address], [place] [id number] Jul, [facility] [place] [facility] [address] [id number] [address] [place] [address], [place] [id number] Jul, [facility] [place] [facility] [address] [id number] [address] [place] [address], [place] [id number] Jul, [facility] [place] [facility] [address] [id number] [address] [place] [address], [place] [id number] Jul, [facility] [place] [facility] [address] [id number] [address] [place] [address], [place] [id number] Jul, [facility] [place] [facility] [address] [id number] [address] [place] [address], [place] [id number] Jul, [facility] [place] [facility] [address] [id number] [address] [place] [address], [place] [id number] Jun, [facility] [place] [facility] [address] [id number] [address] [place] [address], [place] [id number] Jun, [facility] [place] [facility] [address] [id number] [address] [place] [address], [place] [id number] Jun, [facility] [place] [facility] [address] [id number] [address] [place] [address], [place] [id number] 16 Jun, 2014 [facility] [place] [facility] [address] [id number] [address] [place] [address], [place] [id number] 15 Jun, 2014 [facility] [place] [facility] [address] [id number] [address] [place] [address], [place] [id number] 15 Jun, 2014 [facility] [place] [facility] [address] [id number] [address] [place] [address], [place] [id number] Jun, [facility] [place] [facility] [address] [id number] [address] [place] [address], [place] [id number] Jun, [facility] [place] [facility] [address] [id number] [address] [place] [address], [place] [id number] Jun, [facility] [place] [facility] [address] [id number] [address] [place] [address], [place] [id number] Jun, [facility] [place] [facility] [address] [id number] [address] [place] [address], [place] [id number] 29 May, 2013 [facility] [place] [facility] [address] [id number] [address] [place] [address], [place] [id number] 29 May, 2013 [facility] [place] [facility] [address] [id number] [address] [place] [address], [place] [id number] 26 May, 2013 [facility] [place] [facility] [address] [id number] [address] [place] [address], [place] [id number] 26 May, 2013 [facility] [place] [facility] [address] [id number] [address] [place] [address], [place] [id number] 17 May, 2013 [facility] [place] [facility] [address] [id number] [address] [place] [address], [place] [id number] 17 May, 2013 [facility] [address] [id number] [address] [place] [address], [place] [id number] 15 May, 2013 [facility] [address] [id number] [address] [place] [address], [place] [id number] 15 Sep, 2013 [facility] [address] [id number] [address] [place] [address], [place] [id number] 15 May, 2013 [facility] [address] [id number] [address] [place] [address], [place] [id number] 15 May, 2013 [facility] [address] [id number] [address] [place] [address], [place] [id number] 10 May, 2013 [facility] [address] [id number] [facility] [place] [id number] 10 May, 2013 [facility] [address] [id number] [facility] [place] [id number] May, 2013 [facility] [address] [id number] [facility] [place] [id number] May, 2013 [facility] [address] [id number] [address] [place] [address], [place] [id number] May, 2013 [facility] [address] [id number] [address] [place] [address], [place] [id number] May, [facility] [address] [id number] [address] [place] [address], [place] [id number] Apr, [facility] [address] [id number] [address] [place] [address], [place] [id number] Apr, [facility] [address] [id number] [address] [place] [address], [place] [id number] Apr, [facility] [address] [id number] [address] [place] [address], [place] [id number] Apr, [facility] [address] [id number] [address] [place] [address], [place] [id number] Apr, [facility] [address] [id number] [address] [place] [address], [place] [id number] Apr, [facility] [address] [id number] [address] [place] [address], [place] [id number] Apr, [facility] [address] [id number] [address] [place] [address], [place] [id number] Apr, [facility] [address] [id number] [address] [place] [address], [place] [id number] Apr, [facility] [address] [id number] [address] [place] [address], [place] [id number] Apr, [facility] [address] [id number] [address] [place] [address], [place] [id number] Apr, [facility] [address] [id number] [address] [place] [address], [place] [id number] Apr, [facility] [address] [id number] [address] [place] [address], [place] [id number] Apr, [facility] [address] [id number] [address] [place] [address], [place] [id number] Apr, [facility] [address] [id number] [address] [place] [address], [place] [id number] Apr, [facility] [address] [id number] [address] [place] [address], [place] [id number] Mar, [facility] [address] [id number] [address] [place] [address], [place] [id number] Mar, [facility] [address] [id number] [address] [place] [address], [place] [id number] Mar, [facility] [address] [id number] [address] [place] [address], [place] [id number] Mar, [facility] [address] [id number] [address] [place] [address], [place] [id number] Mar, [facility] [address] [id number] [address] [place] [address], [place] [id number] Mar, [facility] [address] [id number] [address] [place] [address], [place] [id number] Mar, [facility] [address] [id number] [address] [place] [address], [place] [id number] Mar, [facility] [address] [id number] [address] [place] [address], [place] [id number] Mar, [facility] [address] [id number] [address] [place] [address], [place] [id number] Mar, [facility] [address] [id number] [address] [place] [address], [place] [id number] Mar, [facility] [address] [id number] [address] [place] [address], [place] [id number] Mar, 2013 [facility] [address] [id number] [address] [place] [address], [place] [id number] Mar, 2013 [facility] [address] [id number] [address] [place] [address], [place] [id number] Mar, 2013 [facility] [address] [id number] [address] [place] [address], [place] [id number] Mar, 2013 [facility] [address] [id number] [address] [place] [address], [place] [id number] Mar, 2013 [facility] [address] [id number] [address] [place] [address], [place] [id number] Mar, 2013 [facility] [address] [id number] [address] [place] [address], [place] [id number] Mar, 2013 [facility] [address] [id number] [address] [place] [address], [place] [id number] Feb, [facility] [address] [id number] [address] [place] [address], [place] [id number] Feb, [facility] [address] [id number] [address] [place] [address], [place] [id number] Feb, [facility] [address] [id number] [address] [place] [address], [place] [id number] Feb, [facility] [address] [id number] [address] [place] [address], [place] [id number] Feb, [facility] [address] [id number] [address] [place] [address], [place] [id number] Feb, [facility] [address] [id number] [address] [place] [address], [place] [id number] Feb, [facility] [address] [id number] [address] [place] [address], [place] [id number] Feb, [facility] [address] [id number] [address] [place] [address], [place] [id number] Feb, [facility] [address] [id number] [facility] [place] [address] Feb, [facility] [address] [id number] [facility] [place] [id number] Feb, [facility] [address] [id number] [facility] [place] [address] Feb, [facility] [address] [id number] [facility] [place] [id number] Feb, [facility] [address] [id number] [facility] [place] [address] Feb, [facility] [address] [id number] [facility] [place] [id number] January, [facility] [address] [id number] [facility] [place] [id number] January, [facility] [address] [id number] [address] [place] [address], [place] [id number] January, [facility] [address] [id number] [address] [place] [address], [place] [id number] January, [facility] [address] [id number] [address] [place] [address], [place] [id number] January, [facility] [address] [id number] [address] [place] [address], [place] [id number] January, [facility] [address] [id number] [address] [place] [address], [place] [id number] January, [facility] [address] [id number] [address] [place] [address], [place] [id number] January, [facility] [address] [id number] [address] [place] [address], [place] [id number] January, [facility] [address] [id number] [facility] [place] [id number] January, [facility] [address] [id number] [address] [place] [address], [place] [id number] January, [facility] [address] [id number] [address] [place] [id number] January, [facility] [address] [id number] [address] [place] [address], [place] [id number] January, [facility] [address] [id number] [address] [place] [address], [place] [id number] January, [facility] [address] [id number] [address] [place] [address], [place] [id number] Dec, [facility] [address] [id number] [address] [place] [address], [place] [id number] Dec, [facility] [address] [id number] [address] [place] [address], [place] [id number] Dec, [facility] [address] [id number] [address] [place] [address], [place] [id number] Dec, [facility] [address] [id number] [address] [place] [address], [place] [id number] Dec, [facility] [address] [id number] [address] [place] [address], [place] [id number] Dec, [facility] [address] [id number] [address] [place] [address], [place] [id number] Dec, [facility] [address] [id number] [address] [place] [address], [place] [id number] Dec, [facility] [address] [id number] [address] [place] [address], [place] [id number] Dec, [facility] [address] [id number] [address] [place] [address], [place] [id number] Dec, [facility] [address] [id number] [address] [place] [address], [place] [id number] Nov, [facility] [address] [id number] [address] [place] [address], [place] [id number] Nov, [facility] [address] [id number] [address] [place] [address], [place] [id number] 10 Nov, 2013 [facility] [address] [id number] [facility] [place] [id number] 10 Nov, 2013 [facility] [address] [id number] [facility] [place] [id number] 08 Nov, 2013 [facility] [address] [id number] [address] [place] [id number] 08 Nov, 2013 [facility] [address] [id number] [facility] [place] [id number] 05 Nov, 2013 [facility] [address] [id number] [address] [place] [address], [place] [id number] 05 Nov, 2013 [facility] [address] [id number] [address] [place] [address], [place] [id number] Nov, [facility] [address] [id number] [address] [place] [address], [place] [id number] Nov, [facility] [address] [id number] [address] [place] [address], [place] [id number] 27 Oct, 2013 [facility] [address] [id number] [address] [place] [address], [place] [id number] 27 Oct, 2013 [facility] [address] [id number] [address] [place] [address], [place] [id number] Oct, [facility] [address] [id number] [address] [place] [address], [place] [id number] Oct, [facility] [address] [id number] [address] [place] [address], [place] [id number] 20 Oct, 2013 [facility] [address] [id number] [address] [place] [address], [place] [id number] 20 Oct, 2013 [facility] [address] [id number] [address] [place] [address], [place] [id number] 14 Oct, 2013 [facility] [address] [id number] [address] [place] [address], [place] [id number] 14 Oct, 2013 [facility] [address] [id number] [facility] [place] [id number] Oct, [facility] [address] [id number] [address] [place] [address], [place] [id number] Oct, [facility] [address] [id number] [address] [place] [address], [place] [id number] Oct, [facility] [address] [id number] [address] [place] [address], [place] [id number] Oct, [facility] [address] [id number] [address] [place] [address], [place] [id number] Oct, [facility] [address] [id number] [address] [place] [address], [place] [id number] Oct, [facility] [address] [id number] [address] [place] [address], [place] [id number] Sep, [facility] [address] [id number] [address] [place] [address], [place] [id number] Sep, [facility] [address] [id number] [address] [place] [address], [place] [id number] Sep, [facility] [address] [id number] [address] [place] [address], [place] [id number] Sep, [facility] [address] [id number] [address] [place] [address], [place] [id number] Sep, [facility] [address] [id number] [address] [place] [address], [place] [id number] Sep, [facility] [address] [id number] [address] [place] [address], [place] [id number] Sep, [facility] [address] [id number] [address] [place] [address], [place] [id number] Sep, [facility] [address] [id number] [address] [place] [address], [place] [id number] Sep, [facility] [address] [id number] [address] [place] [address], [place] [id number] 08 Sep, 2013 [facility] [address] [id number] [address] [place] [address], [place] [id number] Aug, [facility] [address] [id number] [address] [place] [address], [place] [id number] Aug, [facility] [address] [id number] [address] [place] [address], [place] [id number] Jul, [facility] [address] [id number] [address] [place] [address], [place] [id number] Jul, [facility] [address] [id number] [address] [place] [address], [place] [id number] Jul, [facility] [address] [id number] [address] [place] [address], [place] [id number] Jul, [facility] [address] [id number] [address] [place] [address], [place] [id number] Jul, [facility] [address] [id number] [address] [place] [address], [place] [id number] Jul, [facility] [address] [id number] [address] [place] [address], [place] [id number] Jul, [facility] [address] [id number] [address] [place] [address], [place] [id number] Jul, [facility] [address] [id number] [address] [place] [address], [place] [id number] Jul, [facility] [address] [id number] [address] [place] [address], [place] [id number] Jul, [facility] [address] [id number] [address] [place] [address], [place] [id number] Jul, [facility] [address] [id number] [address] [place] [address], [place] [id number] Jul, [facility] [address] [id number] [address] [place] [address], [place] [id number] Jul, [facility] [address] [id number] [address] [place] [address], [place] [id number] Jul, 2012 [facility] [address] [id number] [address] [place] [address], [place] [id number] Jul, 2012 [facility] [address] [id number] [address] [place] [address], [place] [id number] Jul, 2012 [facility] [address] [id number] [address] [place] [address], [place] [id number] Jul, [facility] [address] [id number] [address] [place] [address], [place] [id number] Jul, [facility] [address] [id number] [address] [place] [address], [place] [id number] Jul, [facility] [address] [id number] [address] [place] [address], [place] [id number] Jun, [facility] [address] [id number] [address] [place] [id number] 16 Jun, 2012 [facility] [address] [id number] [address] [place] [address], [place] [id number] Jun, 2012 [facility] [address] [id number] [address] [place] [id number] Jun, 2012 [facility] [address] [id number] [address] [place] [id number] 16 Jun, 2012 [facility] [address] [id number] [address] [place] [id number] 16 Jun, 2012 [facility] [address] [id number] [address] [place] [id number] 10 Jun, 2013 [facility] [address] [id number] [address] [place] [id number] 10 Jun, 2013 [facility] [address] [id number] [address] [place] [id number] 09 Jun, 2013 [facility] [address] [id number] [address] [place] [id number] Jun, [facility] [address] [id number] [address] [place] [address], [place] [id number] Jun, [facility] [address] [id number] [address] [place] [address], [place] [id number] May, [facility] [address] [id number] [address] [place] [address], [place] [id number] May, [facility] [address] [id number] [address] [place] [address], [place] [id number] 19 May, 2013 [facility] [address] [id number] [address] [place] [address], [place] [id number] 17 May, 2013 [facility] [address] [id number] [address] [place] [address], [place] [id number] May, [facility] [address] [id number] [address] [place] [address], [place] [id number] May, [facility] [address] [id number] [address] [place] [address], [place] [id number] May, [facility] [address] [id number] [address] [place] [address], [place] [id number] May, [facility] [address] [id number] [address] [place] [address], [place] [id number] Apr, [facility] [address] [id number] [address] [place] [address], [place] [id number] Apr, [facility] [address] [id number] [address] [place] [address], [place] [id number] Apr, [facility] [address] [id number] [address] [place] [address], [place] [id number] Apr, [facility] [address] [id number] [address] [place] [address], [place] [id number] Apr, [facility] [address] [id number] [address] [place] [address], [place] [id number] Mar, [facility] [address] [id number] [facility] [place] [id number] Mar, [facility] [address] [id number] [address] [place] [id number] Mar, [facility] [address] [id number] [address] [place] [address], [place] [id number] Mar, [facility] [address] [id number] [address] [place] [address], [place] [id number] Mar, [facility] [address] [id number] [address] [place] [address], [place] [id number] Mar, [facility] [address] [id number] [address] [place] [address], [place] [id number] Mar, [facility] [address] [id number] [address] [place] [address], [place] [id number] Mar, [facility] [address] [id number] [address] [place] [address], [place] [id number] Feb, [facility] [address] [id number] [address] [place] [address], [place] [id number] Feb, [facility] [address] [id number] [address] [place] [address], [place] [id number] January, [facility] [address] [id number] [address] [place] [address], [place] [id number] January, [facility] [address] [id number] [address] [place] [address], [place] [id number] Dec, [facility] [address] [id number] [address] [place] [address], [place] [id number] Dec, [facility] [address] [id number] [address] [place] [address], [place] [id number] Nov, [facility] [address] [id number] [address] [place] [address], [place] [id number] Nov, [facility] [address] [id number] [address] [place] [address], [place] [id number] Nov, [facility] [address] [id number] [address] [place] [address], [place] [id number] Nov, [facility] [address] [id number] [address] [place] [address], [place] [id number] 27 Oct, 2012 [facility] [address] [id number] [address] [place] [address], [place] [id number] Oct, [facility] [address] [id number] [address] [place] [address], [place] [id number] Oct, [facility] [address] [id number] [address] [place] [address], [place] [id number] Oct, [facility] [address] [id number] [address] [place] [address], [place] [id number] 16 Oct, 2012 [facility] [address] [id number] [address] [place] [address], [place] [id number] 14 Oct, 2012 [facility] [address] [id number] [address] [place] [address], [place] [id number] 08 Oct, 2012 [facility] [address] [id number] [address] [place] [address], [place] [id number] 07 Oct, 2012 [facility] [address] [id number] [address] [place] [address], [place] [id number] 03 Oct, 2012 [facility] [address] [id number] [address] [place] [address], [place] [id number] Sep, [facility] [address] [id number] [address] [place] [address], [place] [id number] Sep, [facility] [address] [id number] [address] [place] [address], [place] [id number] Sep, [facility] [address] [id number] [address] [place] [address], [place] [id number] Sep, [facility] [address] [id number] [address] [place] [address], [place] [id number] Sep, [facility] [address] [id number] [address] [place] [address], [place] [id number] 10 Sep, 2012 [facility] [address] [id number] [address] [place] [address], [place] [id number] 09 Sep, 2012 [facility] [address] [id number] [address] [place] [address], [place] [id number] Sep, [facility] [address] [id number] [address] [place] [address], [place] [id number] Aug, [facility] [address] [id number] [address] [place] [address], [place] [id number] Aug, [facility] [address] [id number] [address] [place] [address], [place] [id number] Aug, [facility] [address] [id number] [address] [place] [address], [place] [id number] Aug, [facility] [address] [id number] [address] [place] [address], [place] [id number] Aug, [facility] [address] [id number] [address] [place] [address], [place] [id number] Aug, [facility] [address] [id number] [address] [place] [address], [place] [id number] Aug, [facility] [address] [id number] [address] [place] [address], [place] [id number] Aug, [facility] [address] [id number] [address] [place] [address], [place] [id number] Jul, [facility] [address] [id number] [address] [place] [address], [place] [id number] Jul, [facility] [address] [id number] [address] [place] [address], [place] [id number] Jul, [facility] [address] [id number] [address] [place] [address], [place] [id number] Jul, [facility] [address] [id number] [address] [place] [address], [place] [id number] Jul, [facility] [address] [id number] [address] [place] [address], [place] [id number] Jul, [facility] [address] [id number] [address] [place] [address], [place] [id number] Jun, [facility] [address] [id number] [address] [place] [address], [place] [id number] Jun, [facility] [address] [id number] [address] [place] [address], [place] [id number] Jun, [facility] [address] [id number] [address] [place] [address], [place] [id number] Jun, [facility] [address] [id number] [address] [place] [address], [place] [id number] Jun, [facility] [address] [id number] [address] [place] [address], [place] [id number] Jun, [facility] [address] [id number] [address] [place] [address], [place] [id number] Jun, [facility] [address] [id number] [address] [place] [address], [place] [id number] Jun, [facility] [address] [id number] [address] [place] [address], [place] [id number] 10 Jun, 2012 [facility] [address] [id number] [address] [place] [address], [place] [id number] 26 May, 2012 [facility] [address] [id number] [address] [place] [address], [place] [id number] 24 May, 2012 [facility] [address] [id number] [address] [place] [address], [place] [id number] 18 May, 2012 [facility] [address] [id number] [address] [place] [address], [place] [id number] 30 Apr, 2012 [facility] [address] [id number] [address] [place] [address], [place] [id number] Apr, [facility] [address] [id number] [address] [place] [address], [place] [id number] Apr, [facility] [address] [id number] [address] [place] [address], [place] [id number] Apr, [facility] [address] [id number] [address] [place] [address], [place] [id number] Apr, [facility] [address] [id number] [address] [place] [address], [place] [id number] Apr, [facility] [address] [id number] [address] [place] [address], [place] [id number] Mar, [facility] [address] [id number] [address] [place] [address], [place] [id number] Mar, [facility] [address] [id number] [address] [place] [address], [place] [id number] Mar, [facility] [address] [id number] [address] [place] [address], [place] [id number] Mar, [facility] [address] [id number] [address] [place] [address], [place] [id number] Feb, [facility] [address] [id number] [address] [place] [address], [place] [id number] Feb, [facility] [address] [id number] [address] [place] [address], [place] [id number] Feb, [facility] [address] [id number] [address] [place] [address], [place] [id number] Feb, [facility] [address] [id number] [address] [place] [address], [place] [id number] Feb, [facility] [address] [id number] [address] [place] [address], [place] [id number] January, [facility] [address] [id number] [address] [place] [address], [place] [id number] January, [facility] [address] [id number] [address] [place] [address], [place] [id number] January, [facility] [address] [id number] [address] [place] [address], [place] [id number] January, [facility] [address] [id number] [address] [place] [address], [place] [id number] January, [facility] [address] [id number] [address] [place] [address], [place] [id number] January, [facility] [address] [id number] [address] [place] [address], [place] [id number] Dec, [facility] [address] [id number] [address] [place] [address], [place] [id number] Dec, [facility] [address] [id number] [address] [place] [address], [place] [id number] Dec, [facility] [address] [id number] [address] [place], [place] [address], [place] [id number] Dec, [facility] [address] [id number] [address] [place] [address], [place] [id number] Dec, [facility] [address] [id number] [address] [place] [address], [place] [id number] Nov, [facility] [address] [id number] [address] [place] [address], [place] [id number] Nov, [facility] [address] [id number] [address] [place] [address], [place] [id number] Nov, [facility] [address] [id number] [address] [place] [address], [place] [id number] Nov, [facility] [address] [id number] [address] [place] [address], [place] [id number] Oct, [facility] [address] [id number] [address] [place] [address], [place] [id number] Oct, [facility] [address] [id number] [address] [place] [address], [place] [id number] Oct, [facility] [address] [id number] [address] [place] [id number] Oct, [facility] [address] [id number] [address] [place] [address], [place] [id number] Oct, [facility] [address] [id number] [address] [place] [address], [place] [id number] Sep, [facility] [address] [id number] [address] [place] [address], [place] [id number] Sep, [facility] [address] [id number] [address] [place] [address], [place] [id number] Sep, [facility] [address] [id number] [address] [place] [address], [place] [id number] Sep, [facility] [address] [id number] [address] [place] [address], [place] [id number] Sep, [facility] [address] [id number] [address] [place] [address], [place] [id number] Sep, [facility] [address] [id number] [address] [place] [address], [place] [id number] Aug, [facility] [address] [id number] [address] [place] [address], [place] [id number] Aug, [facility] [address] [id number] [address] [place] [address], [place] [id number] Aug, [facility] [address] [id number] [address] [place] [address], [place] [id number] Jul, [facility] [address] [id number] [address] [place] [address], [place] [id number] Jul, [facility] [address] [id number] [address] [place] [address], [place] [id number] Jul, [facility] [address] [id number] [address] [place] [address], [place] [id number] Jul, [facility] [address] [id number] [address] [place] [address], [place] [id number] Jun, [facility] [address] [id number] [address] [place] [address], [place] [id number] 31 Jun, 2011 [facility] [address] [id number] [address] [place] [address], [place] [id number] 18 Jun, 2011 [facility] [address] [id number] [address] [place] [address], [place] [id number] 10 Jun, 2011 [facility] [address] [id number] [address] [place] [address], [place] [id number] 10 Jun, 2011 [facility] [address] [id number] [address] [place] [address], [place] [id number] 10 Jun, 2011 [facility] [address] [id number] [address] [place] [address], [place] [id number] Mar, [facility] [address] [id number] [address] [place] [address], [place] [id number] 18 Dec, 2010 [facility] [address] [id number] [address] [place] [address], [place] [id number] Dec, [facility] [address] [id number] [address] [place] [address], [place] [id number] Nov, [facility] [address] [id number] [address] [place] [address], [place] [id number] 16 Nov, 2010 [facility] [address] [id number] [address] [place] [address], [place] [id number] Sep, [facility] [address] [id number] [address] [place] [address], [place] [id number] Aug, [facility] [address] [id number] [address] [place] [address], [place] [id number] Aug, [facility] [address] [id number] [address] [place] [address], [place] [id number] Aug, [facility] [address] [id number] [address] [place] [address], [place] [id number] Aug, [facility] [address] [id number] [address] [place] [address], [place] [id number] 27 Aug, 2010 [facility] [address] [id number] [address] [place] [address], [place] [id number] 14 Aug, 2010 [facility] [address] [id number] [address] [place] [address], [place] [id number] 08 Aug, 2010 [facility] [address] [id number] [address] [place] [address], [place] [id number] 08 Aug, 2010 [facility] [address] [id number] [address] [place] [address], [place] [id number] 07 Aug, 2010 [facility] [address] [id number] [address] [place] [address], [place] [id number] 06 Aug, 2010 [facility] [address] [id number] [address] [place] [id number] 06 Aug, 2010 [facility] [address] [id number] [address] [place] [address], [place] [id number] Aug, [facility] [address] [id number] [address] [place] [id number] 30 Jul, 2010 [facility] [address] [id number] [address] [place] [id number] 30 Jul, 2010 [facility] [address] [id number] [address] [place] [id number] 30 Jul, 2010 [facility] [address] [id number] [address] [place] [id number] 17 Jul, 2010 [facility] [address] [id number] [address] [place] [id number] 08 Jul, 2010 [facility] [address] [id number] [address] [place] [address], [place] [id number] Jul, [facility] [address] [id number] [address] [place] [id number] 24 Jun, 2010 [facility] [address] [id number] [address] [place] [id number] Jun, [facility] [address] [id number] [address] [place] [address], [place] [id number] 19 Jun, 2010 [facility] [address] [id number] [address] [place] [address], [place] [id number] 13 Jun, 2010 [facility] [address] [id number] [address] [place] [address], [place] [id number] 16 Apr, 2010 [facility] [address] [id number] [address] [place] [address], [place] [id number] 20 Mar, 2010 [facility] [address] [id number] [address] [place] [address], [place] [id number] 17 Feb, 2010 [facility] [address] [id number] [address] [place] [address], [place] [id number] 11 Jan, 2010 [facility] [address] [id number] [address] [place] [address], [place] [id number] 15 Dec, 2009 [facility] [address] [id number] [address] [place] [address], [place] [id number] Nov, [facility] [address] [id number] [address] [place] [address], [place] [id number] 31 Aug, 2009 [facility] [address] [id number] [address] [place] [address], [place] [id number] 23 Aug, 2009 [facility] [address] [id number] [address] [place] [address], [place] [id number] 07 Aug, 2009 [facility] [address] [id number] [address] [place] [address], [place] [id number] Jul, [facility] [address] [id number] [address] [place] [address], [place] [id number] Jul, [facility] [address] [id number] [address] [place] [address], [place] [id number] 07 Jul, 2009 [facility] [address] [id number] [address] [place] [address], [place] [id number] 30 Jun, 2009 [facility] [address] [id number] [address] [place] [address], [place] [id number] Jun, [facility] [address] [id number] [address] [place] [id number] Jun, [facility] [address] [id number] [address] [place] [id number] Jun, [facility] [address] [id number] [address] [place] [id number] Jun, [facility] [address] [id number] [address] [place] [id number] Jun, [facility] [address] [id number] [address] [place] [id number] Apr, [facility] [address] [id number] [address] [place] [id number] Apr, [facility] [address] [id number] [address] [place] [id number] Feb, [facility] [address] [id number] [address] [place] [id number] January, [facility] [address] [id number] [address] [place] [id number] Dec, IMMUNIZATIONS No Known Immunizations SOCIAL HISTORY [...] EGD ([facility]) 2009 Surgical History colonoscopy 2009 ([facility]), 2013 ([facility] ) Surgical History heart cath: [...] to urinate 09/16/15 Hospitalization History [facility] inpatient mental health ea rly 2000's Hospitalization History hyperkalemia 10/2017 Hospitalization History fluid in lung
[2020-04-11 11:12] LABS: BASOPHILS # (AUTO) 0.1 10^3/uL (0.0-0.1); BASOPHILS % (AUTO) 0 % (0-10); EOSINOPHILS # (AUTO) 0.4 10^3/uL (0.0-0.3); EOSINOPHILS % (AUTO) 3 % (0-10); HEMATOCRIT 36 % (40-54); HEMOGLOBIN 11.5 G/DL (13.3-17.7); LYMPHOCYTES # (AUTO) 1.3 X 10^3 (1.0-4.0); LYMPHOCYTES % (AUTO) 10 % (12-44); MEAN CORPUSCULAR HEMOGLOBIN 28 PG (25-34); MEAN CORPUSCULAR HGB CONC 32 G/DL (32-36); MEAN CORPUSCULAR VOLUME 88 FL (80-99); MEAN PLATELET VOLUME 10.6 FL (7.4-10.4); MONOCYTES # (AUTO) 0.9 X 10^3 (0.0-1.0); MONOCYTES % (AUTO) 7 % (0-12); NEUTROPHILS # (AUTO) 10.2 X 10^3 (1.8-7.8); NEUTROPHILS % (AUTO) 79 % (42-75); PLATELET COUNT 294 10^3/uL (130-400); RED CELL DISTRIBUTION WIDTH 14.1 % (10.0-14.5); WHITE BLOOD COUNT 12.9 10^3/uL (4.3-11.0)
--- OUTSIDE RECORDS SUMMARY | 2020-04-11 11:12 | XMS REPORT ---
Author Michele Fuentes Organization [facility] Address [address] [place] [address] Care Team Providers Care Granite Polisher Name Role Phone TOBY ROSELINE Unavailable PROBLEMS Type Condition ICD9-CM Code UFM73-UY Code Onset Dates Condition S tatus SNOMED Code Problem Bipolar I disorder, most recent episode (or curr ent) mixed, moderate F31.62 Active 92185670 Problem Anxiety F41.9 Active 55854540 Problem Insomnia, unspecified type G47.00 Act sharon 311828438 Problem Essential hypertension I10 Active 90199032 Problem Morbid obesity E66.01 Active 10822 6002 Problem Polyneuropathy associated with underlying disease G63 Active 994478729 Problem Diabetic polyneuropathy associated with type 2 d iabetes mellitus E11.42 Active 46272899 Problem Chronic diastolic (congestive) heart failure I50.3 2 Active 845023566 Problem Diabetes E11.9 Active 86832439 Problem Bipolar disorder F31.9 Active 137 51217 Problem Chronic pain G89.29 Active 2240597 1 Problem Reactive airway disease J45.909 Active 519156468114 Problem Leukocytosis D72.829 Active 5226760 06 Problem Falling R29.6 Active 298112631 Problem 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 Active 596959357 Problem Pure hypercholesterolemia E78.00 Acti ve 909748506 Problem Dysuria R30.0 Active 26917598 Problem Bipolar disorder, in partial remission, most rec ent episode depressed F31.75 Active 91772504 Problem Hypokalemia E87.6 Active 98421101 Problem Other iron deficiency anemia D50.8 A ctive 41689034 Problem Eustachian tube dysfunction, unspecified laterality H69.80 Active 16123467 Problem Primary osteoarthritis of right knee M17.11 Active 420511638048386 Problem Cough R05 Active 89163647 Problem Skin cancer C44.90 Active 41550571 7 Problem DM neuro manif type II E11.49 Active 87479913 Problem Mild cognitive impairment G31.84 Acti ve 214251799 Problem Benign prostatic hyperplasia with lower urinary tract symptoms, unspecified morphology N40.1 Active 27510 6007 Problem Psychophysiological insomnia F51.04 A ctive 400814512 Problem Type 2 diabetes mellitus with diabetic neuropathy, uns pecified E11.40 Active 16978228 Problem 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 terminal 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 controller (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 Z79.4 Active 108636606 Problem PVD (peripheral vascular disease) I73.9 Active 421938130 Problem Retinal edema H35.81 Active 703898 6 Problem Chronic lymphocytic leukemia C91.10 A ctive 52821001 Problem Agitation R45.1 Active 542130602 Problem Bilateral primary osteoarthritis of knee M17.0 Active 245658664 Problem Eye exam abnormal R93.8 Active 16 9815255 Problem Anemia of chronic illness D63.8 Acti ve 438616921 Problem Lymphocytosis D72.820 Active 415729 09 Problem Mood disorder F39 Active 337575 05 Problem Bipolar I disorder, most recent episode depressed, moderat e F31.32 Active 309763486 Problem Pressure ulcer of other site, stage 3 L89.893 Active 665141361 Problem Gastroesophageal reflux disease without esophagitis K21.9 Active 098680212 Problem Other secondary acute gout, 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 0 Active 906777338 ALLERGIES No Information ENCOUNTERS Encounter Location Date Diagnosis [facility] [place] [address] [facility] [id number] [address] [place] [phone] 15 Mar, 2020 [facility] [place] [address] [facility] [id number] [address] [place] [address] Mar, [facility] [place] [address] [facility] [id number] [address] [place] [phone] Mar, [facility] [place] [address] [facility] [id number] [address] [place] [phone] Mar, [facility] [place] [address] [facility] [id number] [address] [place] [phone] Feb, [facility] [place] [address] [facility] [id number] [address] [place] [address] Feb, Bipolar I disorder, most rec ent episode depressed, moderate F31.32 ; Anxiety F41.9 and Mild cognitive impairment G31.84 [facility] [place] [address] [id number] [address] [place] [id number] 17 Feb, 2020 Chronic pain G89.29 [facility] [place] [address] [facility] [id number] [address] [place] [phone] 17 Feb, 2020 Agitation R45.1 [facility] [place] [address] [facility] [id number] [address] [place] [id number] 17 Feb, 2020 PVD (peripheral vascular dis ease) I73.9 ; Status post CVA Z86.73 ; Status post carotid endarterectomy Z98.890 ; Vertigo R42 ; Mild cognitive impairment G31.84 ; Type 2 diabetes mellitus with diabetic neuropathy, unspecified E11.40 and Essential hypertension I10 [place] [address] [facility] [id number] [address] [place] [phone] Feb, [facility] [place] [address] [facility] [id number] [address] [place] [id number] Feb, [facility] [place] [address] [id number] [address] [place] [address] January, [facility] [place] [address] [id number] [address] [place] [address] January, Chronic pain G89.29 [facility] [place] [address] [facility] [id number] [address] [place] [phone] Dec, [facility] [place] [address] [id number] [address] [place] [address] Dec, Chronic pain G89.29 [facility] [place] [address] [id number] [address] [place] [address] Dec, [facility] [place] [address] [id number] [address] [place] [phone] Dec, [facility] [place] [address] [facility] [id number] [address] [place] [phone] Dec, Gastroesophageal reflux dise ase without esophagitis K21.9 and Pure hypercholesterolemia E78.00 [facility] [place] [address] [facility] [id number] [address] [place] [address] Dec, Mood disorder F39 [facility] [place] [address] [facility] [id number] [address] [place] [phone] Nov, Other secondary acute gout, 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 [facility] [place] [address] [facility] [id number] [address] [place] [phone] Nov, Gastroesophageal reflux dise ase without esophagitis K21.9 [facility] [place] [address] [facility] [id number] [address] [place] [address] Nov, Chronic pain G89.29 [facility] [place] [address] [facility] [id number] [address] [place] [phone] Nov, Bipolar I disorder, most rec ent episode depressed, moderate F31.32 ; Anxiety F41.9 and Mild cognitive impairment G31.84 [place] [address] [facility] [id number] [address] [place] [phone] Nov, [facility] [place] [address] [facility] [id number] [address] [place] [phone] Nov, Syncope, unspecified syncope type R55 [facility] [place] [address] [facility] [id number] [address] [place] [phone] Nov, Mood disorder F39 [facility] [place] [address] [facility] [id number] [address] [place] [address] Oct, Chronic pain G89.29 [facility] [place] [address] [facility] [id number] [address] [place] [phone] Oct, [facility] [place] [address] [facility] [id number] [address] [place] [phone] Oct, Mood disorder F39 [facility] [place] [address] [facility] [id number] [address] [place] [address] Oct, [facility] [place] [address] [facility] [id number] [address] [place] [phone] 10 Oct, 2019 Bipolar disorder, in partial remission, most recent episode depressed F31.75 and Mild cognitive impairment G31.84 [facility] [place] [address] [id number] [address] [place] [id number] 04 Oct, 2019 Mood disorder F39 [facility] [place] [address] [id number] [address] [place] [id number] 28 Sep, 2019 [facility] [place] [address] [id number] [address] [place] [phone] Sep, Mood disorder F39 [facility] [place] [address] [id number] [address] [place] [phone] Sep, Bipolar disorder, in partial remission, most recent episode depressed F31.75 and Mild cognitive impairment G31.84 [facility] [place] [address] [id number] [address] [place] [phone] Sep, Mood disorder F39 [facility] [place] [address] [id number] [address] [place] [id number] Sep, [facility] [place] [address] [id number] [address] [place] [phone] Sep, Mood disorder F39 [facility] [place] [address] [id number] [address] [place] [phone] Sep, [facility] [place] [address] [id number] [address] [place] [phone] Aug, Mood disorder F39 [facility] [place] [address] [id number] [address] [place] [phone] Aug, [facility] [place] [address] [id number] [address] [place] [phone] Aug, [facility] [place] [address] [id number] [address] [place] [phone] Aug, [facility] [place] [address] [id number] [address] [place] [phone] Aug, [facility] [place] [address] [id number] [address] [place] [phone] Aug, [facility] [place] [address] [id number] [address] [place] [phone] Aug, [facility] [place] [address] [id number] [address] [place] [phone] Aug, [facility] [place] [address] [id number] [address] [place] [phone] Aug, Essential hypertension I10 [facility] [place] [address] [id number] [address] [place] [phone] Aug, Bipolar disorder, in partial remission, most recent episode depressed F31.75 and Mild cognitive impairment G31.84 [facility] [place] [address] [id number] [address] [place] [id number] Aug, Mood disorder F39 [facility] [place] [address] [id number] [address] [place] [phone] Aug, [facility] [place] [address] [id number] [address] [place] [phone] Aug, Bipolar disorder, in partial remission, most recent episode depressed F31.75 and Mild cognitive impairment G31.84 [facility] [place] [address] [id number] [address] [place] [phone] Jul, Bipolar disorder, in partial remission, most recent episode depressed F31.75 and Mild cognitive impairment G31.84 [facility] [place] [address] [id number] [address] [place] [phone] Jul, Psychophysiological insomnia F51.04 [facility] [place] [address] [id number] [address] [place] [phone] Jul, [facility] [place] [address] [id number] [address] [place] [phone] Jul, [facility] [place] [address] [id number] [address] [place] [phone] Jul, [facility] [place] [address] [facility] [id number] [address] [place] [phone] Jul, [facility] [place] [address] [id number] [address] [place] [id number] Jul, [facility] [place] [address] [facility] [id number] [address] [place] [phone] Jul, [place] [address] [facility] [id number] [address] [place] [address] Jul, Bipolar disorder, in partial remission, most recent episode depressed F31.75 and Mild cognitive impairment G31.84 [place] [address] [facility] [id number] [address] [place] [phone] Jul, Chronic pain G89.29 ; Diabet es E11.9 ; Essential hypertension I10 ; Ill feeling R68.89 ; Local infection of the skin and subcutaneous tissue, unspecified L08.9 and Other injury of unspecified body region, initial encounter T14.8XXA [place] [address] [facility] [id number] [address] [place] [phone] Jun, Bipolar disorder, in partial remission, most recent episode depressed F31.75 and Mild cognitive impairment G31.84 [place] [address] [facility] [id number] [address] [place] [address] Jun, [place] [address] [facility] [id number] [address] [place] [address] Jun, Bipolar disorder, in partial remission, most recent episode depressed F31.75 and Mild cognitive impairment G31.84 [place] [address] [facility] [id number] [address] [place] [address] Jun, Psychophysiological insomnia F51.04 [place] [address] [facility] [id number] [address] [place] [phone] Jun, Psychophysiological insomnia F51.04 ; Chronic pain G89.29 ; Bipolar I disorder, most recent episode (or current) mixed, moderate F31.62 ; 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 ; Polyneuropathy associated with underlying disease G63 ; Type 2 diabetes mellitus with diabetic neuropathy, unspecified E11.40 ; care home (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 Z79.4 and Hyperglycemia R73.9 [place] [address] [facility] [id number] [address] [place] [address] Jun, Bipolar disorder, in partial remission, most recent episode depressed F31.75 and Mild cognitive impairment G31.84 [place] [address] [place] [id number] [address] [place] [phone] Jun, [place] [address] [facility] [id number] [address] [place] [address] Jun, Bipolar disorder F31.9 [place] [address] [place] [id number] [address] [place] [address] May, Bipolar disorder, in partial remission, most recent episode depressed F31.75 and Mild cognitive impairment G31.84 [place] [address] [place] [id number] [address] [place] [id number] May, [place] [address] [place] [id number] [address] [place] [phone] Apr, Chronic pain G89.29 and Bipo lar disorder F31.9 [place] [address] [place] [id number] [address] [place] [address] Mar, Bipolar disorder F31.9 and C hronic pain G89.29 [place] [address] [facility] [id number] [address] [place] [phone] Feb, Bipolar disorder F31.9 [place] [address] [facility] [id number] [address] [place] [address] Feb, Cellulitis of right upper ex tremity L03.113 and Skin abrasion T14.8XXA [place] [address] [facility] [id number] [address] [place] [address] Feb, Bipolar disorder, in partial remission, most recent episode depressed F31.75 and Mild cognitive impairment G31.84 [place] [address] [place] [id number] [address] [place] [phone] 13 Feb, 2019 Chronic pain G89.29 [facility] [place] [address] [id number] [address] [place] [phone] Feb, Bipolar disorder, in partial remission, most recent episode depressed F31.75 and Mild cognitive impairment G31.84 [facility] [place] [address] [id number] [address] [place] [phone] January, Bipolar disorder, in partial remission, most recent episode depressed F31.75 and Mild cognitive impairment G31.84 [facility] [place] [address] [id number] [address] [place] [phone] January, Chronic pain G89.29 and Bipo lar disorder F31.9 [facility] [place] [address] [id number] [address] [place] [id number] January, Bipolar disorder, in partial remission, most recent episode depressed F31.75 and Mild cognitive impairment G31.84 [facility] [place] [address] [id number] [address] [place] [phone] Dec, [facility] [place] [address] [id number] [address] [place] [phone] Dec, Chronic pain G89.29 and Bipo lar disorder F31.9 [facility] [place] [address] [id number] [address] [place] [phone] Dec, Edema of both lower extremit ies R60.0 [facility] [place] [address] [id number] [address] [place] [address] Dec, Bipolar disorder F31.9 [facility] [place] [address] [id number] [address] [place] [address] Dec, Bipolar disorder, in partial remission, most recent episode depressed F31.75 and Mild cognitive impairment G31.84 [facility] [place] [address] [id number] [address] [place] [phone] Nov, [facility] [place] [address] [place] [id number] [address] [place] [address] Nov, Chronic pain G89.29 [place] [address] [address] Nov, Bipolar disorder, in partial remission, most recent episode depressed F31.75 and Mild cognitive impairment G31.84 [place] [address] [place] [id number] [address] [place] [address] Nov, Bipolar disorder F31.9 [place] [address] [address] 04 Nov, 2018 Encounter for Medicare annua [...] N40.1 and Essential hypertension I10 [place] [address] [phone] Oct, Chronic pain G89.29 [place] [address] [place] [id number] [address] [place] [address] Oct, Diabetes E11.9 [place] [address] [place] [id number] [address] [place] [address] Oct, Bipolar I disorder, most rec ent episode (or current) mixed, moderate F31.62 and Mild cognitive impairment G31.84 [place] [address] [place] [id number] [address] [place] [address] Oct, Bipolar I disorder, most rec ent episode (or current) mixed, moderate F31.62 and Mild cognitive impairment G31.84 [place] [address] [place] [id number] [address] [place] [phone] Sep, Bipolar I disorder, most rec ent episode (or current) mixed, moderate F31.62 and Mild cognitive impairment G31.84 [facility] [place] [address] [facility] [id number] [address] [place] [address] Sep, [facility] [place] [address] [facility] [id number] [address] [place] [phone] Sep, Diabetes E11.9 ; Hypoxia R09 .02 ; Hyperglycemia R73.9 ; Therapeutic drug monitoring Z51.81 ; BMI 50.0-59.9, adult Z68.43 and Skin cancer C44.90 [place] [address] [facility] [id number] [address] [place] [address] Sep, Chronic pain G89.29 [place] [address] [facility] [id number] [address] [place] [phone] Sep, Bipolar I disorder, most rec ent episode (or current) mixed, moderate F31.62 [place] [address] [facility] [id number] [address] [place] [phone] Sep, [facility] [place] [address] [id number] [address] [place] [id number] Sep, [facility] [place] [address] [place] [id number] [address] [place] [phone] Aug, Chronic pain G89.29 [facility] [place] [address] [facility] [id number] [address] [place] [phone] Aug, Bipolar I disorder, most rec ent episode (or current) mixed, moderate F31.62 [facility] [place] [address] [facility] [id number] [address] [place] [phone] Aug, Bipolar I disorder, most rec ent episode (or current) mixed, moderate F31.62 and Mild cognitive impairment G31.84 [facility] [place] [address] [facility] [id number] [address] [place] [id number] Jul, [facility] [place] [address] [facility] [id number] [address] [place] [phone] Jul, Chronic pain G89.29 [facility] [place] [address] [id number] [address] [place] [phone] Jul, Bipolar I disorder, most rec ent episode (or current) mixed, moderate F31.62 and Mild cognitive impairment G31.84 [facility] [place] [address] [id number] [address] [place] [id number] Jul, Bipolar I disorder, most rec ent episode (or current) mixed, moderate F31.62 and MCI (mild cognitive impairment) G31.84 [facility] [place] [address] [id number] [address] [place] [place] [address] Jul, [facility] [address] [id number] [address] [place] [phone] Jul, [facility] [place] [address] [id number] [address] [place] [address] Jul, Bipolar I disorder, most rec ent episode (or current) mixed, moderate F31.62 [facility] [place] [address] [id number] [address] [place] [phone] Jul, Chronic pain G89.29 [facility] [place] [address] [id number] [address] [place] [address] Jun, Bipolar I disorder, most rec ent episode (or current) mixed, moderate F31.62 [facility] [place] [address] [id number] [address] [place] [id number] Jun, Pre-procedure lab exam Z01.8 12 [facility] [address] [id number] [place] [id number] Jun, [facility] [place] [address] [id number] [address] [place] [phone] Jun, [facility] [place] [address] [id number] [address] [place] [phone] Jun, [facility] [place] [address] [id number] [address] [place] [address] Jun, Forgetfulness R68.89 ; Pre-s yncope R55 ; Localized edema R60.0 ; Other iron deficiency anemia D50.8 and BMI 50.0-59.9, adult Z68.43 [place] [address] [address] Jun, Chronic pain G89.29 [place] [address] [address] Jun, Chronic pain G89.29 [place] [address] [address] Jun, Bipolar I disorder, most rec ent episode (or current) mixed, moderate F31.62 [place] [address] [place] [id number] [place] [address] May, Chronic pain G89.29 [place] [address] [address] Apr, [place] [address] [address] Apr, Chronic pain G89.29 [place] [address] [address] Apr, Primary osteoarthritis of ri ght knee M17.11 [place] [address] [address] Mar, [place] [address] [address] Mar, BMI 50.0-59.9, adult Z68.43 and Bipolar disorder, in partial remission, most recent episode depressed F31.75 [place] [address] [address] Mar, Diabetes E11.9 ; Pure hyperc holesterolemia E78.00 ; Essential hypertension I10 ; Nausea with vomiting, unspecified R11.2 and Headache, unspecified headache type R51 [place] [address] [facility] [id number] [address] [place] [id number] Mar, Bipolar I disorder, most rec ent episode (or current) mixed, moderate F31.62 [facility] [place] [address] [facility] [id number] [address] [place] [phone] Mar, Bipolar I disorder, most rec ent episode (or current) mixed, moderate F31.62 [place] [address] [facility] [id number] [address] [place] [address] Mar, Chronic pain G89.29 [facility] [place] [address] [facility] [id number] [address] [place] [phone] Mar, Bipolar I disorder, most rec ent episode (or current) mixed, moderate F31.62 [place] [address] [place] [id number] [address] [place] [address] Feb, Bipolar I disorder, most rec ent episode (or current) mixed, moderate F31.62 [place] [address] [place] [id number] [address] [place] [address] Feb, Chronic pain G89.29 [place] [address] [place] [id number] [address] [place] [address] Feb, Decubitus ulcer of right josselin t, stage 3 L89.893 and BMI 50.0-59.9, adult Z68.43 [place] [address] [place] [id number] [address] [place] [id number] Feb, Bipolar I disorder, most rec ent episode (or current) mixed, moderate F31.62 [place] [address] [facility] [id number] [address] [place] [phone] Feb, [place] [address] [place] [id number] [address] [place] [address] January, [facility] [place] [address] [place] [id number] [address] [place] [address] January, Chronic pain G89.29 [facility] [place] [address] [place] [id number] [address] [place] [address] January, Bipolar I disorder, most rec ent episode (or current) mixed, moderate F31.62 [place] [address] [place] [id number] [address] [place] [id number] January, Bipolar I disorder, most rec ent episode (or current) mixed, moderate F31.62 [place] [address] [place] [id number] [place] [address] Dec, Bipolar I disorder, most rec ent episode (or current) mixed, moderate F31.62 and BMI 50.0-59.9, adult Z68.43 [place] [id number] [place] [address] Dec, Bipolar I disorder, most rec ent episode (or current) mixed, moderate F31.62 [place] [address] [address] Dec, Chronic pain G89.29 [place] [address] [place] [id number] [place] [address] Dec, DM neuro manif type II E11.4 9 ; Right flank pain R10.9 ; care home current use of opiate analgesic Z79.891 ; Encounter for medication monitoring Z51.81 and BMI 50.0-59.9, adult Z68.43 [place] [address] [address] Dec, Bipolar I disorder, most rec ent episode (or current) mixed, moderate F31.62 [place] [address] [place] [id number] [address] [place] [address] Nov, Bipolar I disorder, most rec ent episode (or current) mixed, moderate F31.62 [place] [address] [place] [id number] [address] [place] [address] Nov, Chronic pain G89.29 [place] [address] [place] [id number] [address] [place] [address] Nov, Bipolar I disorder, most rec ent episode (or current) mixed, moderate F31.62 [facility] [place] [address] [place] [id number] [address] [place] [address] Nov, Hypokalemia E87.6 [facility] [place] [address] [place] [id number] [address] [place] [address] Nov, Bipolar I disorder, most rec ent episode (or current) mixed, moderate F31.62 [place] [address] [place] [id number] [address] [place] [address] Oct, Chronic pain G89.29 [place] [address] [place] [id number] [place] [address] Oct, BMI 50.0-59.9, adult Z68.43 and Bipolar I disorder, most recent episode (or current) mixed, moderate F31.62 [place] [address] [address] Oct, Bipolar I disorder, most rec ent episode (or current) mixed, moderate F31.62 [place] [address] [address] Oct, [place] [address] [place] [id number] [place] [address] Oct, Hypokalemia E87.6 [place] [address] [address] Oct, DM neuro manif type II E11.4 9 [facility] [place] [address] [facility] [id number] [address] [place] [address] Oct, Bipolar I disorder, most rec ent episode (or current) mixed, moderate F31.62 [place] [address] [place] [id number] [address] [place] [address] Oct, Bipolar I disorder, most rec ent episode (or current) mixed, moderate F31.62 [place] [address] [address] 14 Oct, 2017 Hyperkalemia E87.5 ; Falling R29.6 ; BMI 50.0-59.9, adult Z68.43 and Acute left ankle pain M25.572 [place] [address] [address] 08 Oct, 2017 DM neuro manif type II E11.4 9 [place] [address] [address] Oct, [place] [address] [address] Sep, Chronic pain G89.29 [place] [address] [address] Sep, [place] [address] [address] Sep, Bilateral primary osteoarthr itis of knee M17.0 [place] [address] [address] Sep, Generalized edema R60.1 [place] [address] [address] 16 Sep, 2017 Bipolar I disorder, most rec ent episode (or current) mixed, moderate F31.[address] [address] 15 Sep, 2017 Hypoxia R09.02 ; Other hyper volemia E87.79 ; Diabetes E11.9 ; Retinal edema H35.81 ; Hypokalemia E87.6 ; 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 ; Anemia of chronic illness D63.8 and BMI 50.0- 59.9, adult Z68.43 [place] [address] [address] Sep, [place] [address] [address] Sep, Bipolar I disorder, most rec ent episode (or current) mixed, moderate F31.62 [facility] [place] [address] [facility] [id number] [address] [place] [address] 28 Aug, 2017 Chronic pain G89.29 [facility] [place] [address] [facility] [id number] [address] [place] [address] Aug, Generalized edema R60.1 [facility] [place] [address] [facility] [id number] [address] [place] [address] 18 Aug, 2017 [facility] [place] [address] [facility] [id number] [address] [place] [address] 18 Aug, 2017 [facility] [place] [address] [place] [id number] [address] [place] [address] 14 Aug, 2017 Bipolar I disorder, most rec ent episode (or current) mixed, moderate F31.62 [place] [address] [place] [id number] [address] [place] [address] 07 Aug, 2017 Bipolar I disorder, most rec ent episode (or current) mixed, moderate F31.62 [facility] [place] [address] [facility] [id number] [address] [place] [address] 04 Aug, 2017 Chronic pain G89.29 [facility] [place] [address] [facility] [id number] [address] [place] [address] 30 Jul, 2017 Bipolar I disorder, most rec ent episode (or current) mixed, moderate F31.62 [facility] [place] [address] [facility] [id number] [address] [place] [address] Jul, Bipolar I disorder, most rec ent episode (or current) mixed, moderate F31.62 and BMI 60.0-69.9, adult Z68.44 [facility] [place] [address] [facility] [id number] [address] [place] [id number] 16 Jul, 2017 Bipolar I disorder, most rec ent episode (or current) mixed, moderate F31.62 [facility] [place] [address] [facility] [id number] [address] [place] [address] Jul, Chronic pain G89.29 [facility] [place] [address] [id number] [address] [place] [address] Jul, Bipolar I disorder, most rec ent episode (or current) mixed, moderate F31.62 [facility] [place] [address] [facility] [id number] [address] [place] [phone] Jun, Polyneuropathy associated wi th underlying disease G63 and Diabetes E11.9 [facility] [place] [address] [facility] [id number] [address] [place] [id number] 16 Jun, 2017 Bipolar I disorder, most rec ent episode (or current) mixed, moderate F31.62 [facility] [place] [address] [facility] [id number] [address] [place] [address] Jun, Chronic pain G89.29 [facility] [place] [address] [facility] [id number] [address] [place] [address] May, Bipolar I disorder, most rec ent episode (or current) mixed, moderate F31.62 [facility] [place] [address] [facility] [id number] [address] [place] [id number] May, Bipolar I disorder, most rec ent episode (or current) mixed, moderate F31.62 [facility] [place] [address] [facility] [id number] [address] [place] [address] 20 May, 2017 Diabetic polyneuropathy asso ciated with type 2 diabetes mellitus E11.42 [facility] [place] [address] [facility] [id number] [address] [place] [phone] 18 May, 2017 Bipolar I disorder, most rec ent episode (or current) mixed, moderate F31.62 [facility] [place] [address] [facility] [id number] [address] [place] [phone] 13 May, 2017 Bipolar I disorder, most rec ent episode (or current) mixed, moderate F31.62 [facility] [place] [address] [facility] [id number] [address] [place] [address] 12 May, 2017 Chronic pain G89.29 [facility] [place] [address] [id number] [address] [place] [address] Apr, Bipolar I disorder, most rec ent episode (or current) mixed, moderate F31.62 [facility] [place] [address] [id number] [address] [place] [id number] Apr, [facility] [place] [address] [id number] [address] [place] [address] Apr, Chronic pain G89.29 and DM n euro manif type II E11.49 [facility] [place] [address] [id number] [address] [place] [phone] Apr, [facility] [place] [address] [facility] [id number] [address] [place] [address] Apr, Bipolar I disorder, most rec ent episode (or current) mixed, moderate F31.62 [facility] [place] [address] [facility] [id number] [address] [place] [address] Apr, Chronic pain G89.29 [facility] [address] [facility] [id number] [address] [place] [address] Apr, Iliotibial band syndrome, le ft M76.32 [facility] [place] [address] [facility] [id number] [address] [place] [address] Apr, Bipolar I disorder, most rec ent episode (or current) mixed, moderate F31.62 [facility] [place] [address] [facility] [id number] [address] [place] [address] Mar, Bipolar I disorder, most rec ent episode (or current) mixed, moderate F31.62 [facility] [place] [address] [facility] [id number] [address] [place] [address] Mar, Bipolar I disorder, most rec ent episode (or current) mixed, moderate F31.62 [facility] [place] [address] [facility] [id number] [address] [place] [address] Mar, [facility] [address] [facility] [id number] [address] [place] [id number] Mar, Bipolar I disorder, most rec ent episode (or current) mixed, moderate F31.62 [facility] [place] [address] [facility] [id number] [address] [place] [address] Mar, Chronic pain G89.29 [facility] [place] [address] [id number] [address] [place] [address] Mar, Bipolar I disorder, most rec ent episode (or current) mixed, moderate F31.62 [facility] [place] [address] [facility] [id number] [address] [place] [id number] Mar, Bipolar I disorder, most rec ent episode (or current) mixed, moderate F31.62 [facility] [place] [address] [facility] [id number] [address] [place] [address] Mar, Acute pain of left knee M25. 562 ; Left hip pain M25.552 ; Generalized edema R60.1 and Tongue swelling R22.0 [facility] [place] [address] [facility] [id number] [address] [place] [address] Mar, [facility] [place] [address] [id number] [address] [place] [phone] Feb, Chronic pain G89.29 [facility] [place] [address] [facility] [id number] [address] [place] [address] Feb, Diabetes E11.9 [facility] [place] [address] [facility] [id number] [address] [place] [address] January, Chronic pain G89.29 [facility] [place] [address] [id number] [address] [place] [address] January, [facility] [place] [address] [facility] [id number] [address] [place] [address] January, Bipolar I disorder, most rec ent episode (or current) mixed, moderate F31.62 [facility] [place] [address] [facility] [id number] [address] [place] [address] Dec, Bipolar I disorder, most rec ent episode (or current) mixed, moderate F31.62 [facility] [place] [address] [id number] [address] [place] [address] Dec, Chronic pain G89.29 [facility] [place] [address] [facility] [id number] [address] [place] [address] Dec, Bipolar I disorder, most rec ent episode (or current) mixed, moderate F31.62 [facility] [place] [address] [facility] [id number] [address] [place] [address] Dec, Diabetes E11.9 ; Essential h ypertension I10 ; Chronic pain G89.29 and Morbid obesity E66.01 [facility] [address] [facility] [id number] [address] [place] [phone] Dec, [facility] [address] [facility] [id number] [address] [place] [phone] Dec, Bipolar I disorder, most rec ent episode (or current) mixed, moderate F31.62 [facility] [place] [address] [facility] [id number] [address] [place] [phone] Dec, Bipolar I disorder, most rec ent episode (or current) mixed, moderate F31.62 [facility] [place] [address] [facility] [id number] [address] [place] [address] Nov, Chronic pain G89.29 [facility] [place] [address] [id number] [address] [place] [phone] Nov, Bipolar I disorder, most rec ent episode (or current) mixed, moderate F31.62 [facility] [place] [address] [id number] [address] [place] [phone] Nov, [facility] [place] [address] [facility] [id number] [address] [place] [address] Nov, Bipolar I disorder, most rec ent episode (or current) mixed, moderate F31.62 [facility] [address] [facility] [id number] [address] [place] [phone] Nov, Bipolar I disorder, most rec ent episode (or current) mixed, moderate F31.62 [facility] [place] [address] [facility] [id number] [address] [place] [address] Nov, [facility] [address] [facility] [id number] [address] [place] [phone] Nov, [facility] [place] [address] [place] [id number] [address] [place] [phone] Nov, [facility] [place] [address] [place] [id number] [address] [place] [phone] Oct, Chronic pain G89.29 [facility] [place] [address] [place] [id number] [address] [place] [phone] Oct, Bipolar I disorder, most rec ent episode (or current) mixed, moderate F31.62 [facility] [place] [address] [place] [id number] [address] [place] [phone] Oct, [facility] [place] [address] [place] [id number] [address] [place] [phone] Oct, Chronic pain G89.29 ; Diabet es E11.9 ; Anxiety F41.9 and 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 [facility] [place] [address] [place] [id number] [address] [place] [phone] 10 Oct, 2016 [facility] [place] [address] [place] [id number] [address] [place] [phone] Oct, Diabetes E11.9 [facility] [place] [address] [facility] [id number] [address] [place] [phone] Oct, Bipolar I disorder, most rec ent episode (or current) mixed, moderate F31.62 [facility] [place] [address] [facility] [id number] [address] [place] [phone] Sep, Chronic pain G89.29 [facility] [place] [address] [place] [id number] [address] [place] [phone] Sep, Chronic pain G89.29 [facility] [place] [address] [id number] [address] [place] [phone] Aug, Chronic pain G89.29 [facility] [place] [address] [id number] [address] [place] [phone] Jul, [facility] [place] [address] [facility] [id number] [address] [place] [phone] Jul, Diabetes E11.9 [facility] [place] [address] [id number] [address] [place] [phone] Jul, Chronic pain G89.29 [facility] [place] [address] [id number] [address] [place] [id number] Jul, Bipolar I disorder, most rec ent episode (or current) mixed, moderate F31.62 [facility] [place], [facility] [address] [facility] [id number] [address] [place] [phone] Jun, Bipolar I disorder, most rec ent episode (or current) mixed, moderate F31.62 [facility] [address] [id number] [address] [place] [address] Jun, [facility] [address] [facility] [id number] [address] [place] [address] Jun, Bipolar I disorder, most rec ent episode (or current) mixed, moderate F31.62 [facility] [address] [facility] [id number] [address] [place] [phone] 30 May, 2016 Insomnia, unspecified type G 47.00 [facility] [place] [address] [id number] [address] [place] [address] May, Bipolar I disorder, most rec ent episode (or current) mixed, moderate F31.62 [facility] [place] [address] [facility] [id number] [address] [place] [address] 14 May, 2016 [facility] [place] [address] [facility] [id number] [address] [place] [address] May, Bipolar I disorder, most rec ent episode (or current) mixed, moderate F31.62 [facility] [place] [address] [facility] [id number] [address] [place] [address] May, Diabetes E11.9 and Essential hypertension I10 [place] [address] [facility] [id number] [address] [place] [address] Apr, Chronic pain G89.29 [place] [address] [facility] [id number] [address] [place] [address] Apr, Bipolar I disorder, most rec ent episode (or current) mixed, moderate F31.62 [place] [address] [facility] [id number] [address] [place] [address] Apr, [place] [address] [facility] [id number] [address] [place] [address] Apr, [place] [address] [place] [id number] [address] [place] [address] Mar, Chronic pain G89.29 ; Headac he, unspecified headache type R51 ; Neuropathy G62.9 ; Pain of right hip joint M25.551 and Essential hypertension I10 [place] [address] [facility] [id number] [address] [place] [address] Mar, Chronic pain G89.29 [place] [address] [facility] [id number] [address] [place] [address] Mar, Bipolar I disorder, most rec ent episode (or current) mixed, moderate F31.62 [place] [address] [facility] [id number] [address] [place] [address] Feb, Bipolar I disorder, most rec ent episode (or current) mixed, moderate F31.62 and Insomnia, unspecified type G47.00 [place] [address] [facility] [id number] [address] [place] [address] Feb, Chronic pain G89.29 [facility] [place] [address] [facility] [id number] [address] [place] [address] Feb, Bipolar I disorder, most rec ent episode (or current) mixed, moderate F31.62 [facility] [place] [address] [id number] [address] [place] [address] January, Bipolar I disorder, most rec ent episode (or current) mixed, moderate F31.62 [facility] [place] [address] [id number] [address] [place] [address] January, Chronic pain G89.29 [facility] [place] [address] [id number] [address] [place] [address] January, Chronic pain G89.29 and Esse ntial hypertension I10 [facility] [address] [id number] [address] [place] [address] January, Bipolar I disorder, most rec ent episode (or current) mixed, moderate F31.62 [facility] [place] [address] [id number] [address] [place] [address] Dec, [facility] [address] [id number] [address] [place] [address] Dec, [facility] [address] [id number] [address] [place] [id number] Dec, [facility] [address] [id number] [address] [place] [address] Dec, [facility] [place] [address] [id number] [address] [place] [address] Nov, Reactive airway disease J45. 909 [facility] [place] [address] [id number] [address] [place] [address] Nov, [facility] [place] [address] [id number] [address] [place] [address] Nov, [facility] [place] [address] [id number] [address] [place] [address] Nov, [facility] [place] [address] [id number] [address] [place] [address] Nov, [facility] [place] [address] [address] Nov, Onychomycosis B35.1 ; Hammer toe M20.40 ; [place] or callus L84 and DM neuro manif type II E11.49 [place] [address] [address] Nov, Chronic pain G89.29 ; Leukoc ytosis D72.829 and Diabetes E11.[address] [address] Nov, [place] [address] [address] Oct, Bronchitis J40 [place] [address] [address] Oct, [address] [address] Oct, [address] [address] Oct, Mastoiditis, unspecified lat erality H70.90 and Type 2 diabetes mellitus with complication E11.[address] [address] Sep, [address] [address] Sep, Dysuria R30.0 ; Cough R05 ; Benign prostatic hyperplasia with lower urinary tract symptoms, unspecified morphology N40.1 ; Hypokalemia E87.6 and Eustachian tube dysfunction, unspecified laterality H69.[address] [address] Sep, Moderate mixed bipolar I dis order F31.[address] [address] Sep, Hypokalemia E87.6 [place] [address] [id number] [address] [place] [address] Sep, [facility] [address] [facility] [id number] [address] [place] [address] Sep, Upper respiratory tract infe ction, unspecified type J06.9 [facility] [place] [address] [facility] [id number] [address] [place] [address] Aug, [facility] [place] [address] [id number] [address] [place] [address] Aug, Dysuria R30.0 [facility] [place] [address] [id number] [address] [place] [address] Aug, [facility] [place] [address] [id number] [address] [place] [phone] Jul, [facility] [place] [address] [facility] [id number] [address] [place] [id number] Jul, [facility] [place] [address] [id number] [address] [place] [address] Jul, [facility] [place] [address] [facility] [id number] [address] [place] [address] Jul, [facility] [place] [address] [facility] [id number] [address] [place] [address] Jun, [facility] [place] [address] [facility] [id number] [address] [place] [phone] Jun, [facility] [place] [address] [id number] [address] [place] [address] Jun, [facility] [place] [address] [id number] [address] [place] [address] May, [facility] [place] [address] [facility] [id number] [address] [place] [address] May, Bipolar I disorder, most rec ent episode (or current) mixed, moderate 296.62 [facility] [place] [address] [id number] [address] [place] [address] May, [facility] [place] [address] [id number] [address] [place] [address] May, Bipolar I disorder, most rec ent episode (or current) mixed, moderate 296.62 and Major depressive disorder, recurrent episode, severe, specified as with psychotic behavior 296.34 [facility] [place] [address] [id number] [address] [place] [address] May, Bipolar I disorder, most rec ent episode (or current) mixed, moderate 296.62 [facility] [place] [address] [id number] [address] [place] [address] May, [facility] [place] [address] [facility] [id number] [address] [place] [address] Apr, [facility] [place] [address] [facility] [id number] [address] [place] [address] Apr, [facility] [place] [address] [facility] [id number] [address] [place] [address] Apr, Unspecified disorder of kidn ey and ureter 593.9 and Diabetes mellitus type 2, uncontrolled 250.02 [facility] [place] [address] [id number] [address] [place] [address] Apr, [facility] [place] [address] [facility] [id number] [address] [place] [address] Apr, [facility] [place] [address] [facility] [id number] [address] [place] [address] Apr, [facility] [place] [address] [id number] [address] [place] [address] Apr, [facility] [place] [address] [facility] [id number] [address] [place] [address] Apr, Diabetes mellitus type II, u ncontrolled 250.02 [facility] [place] [address] [facility] [id number] [address] [place] [address] Apr, [facility] [place] [address] [facility] [id number] [address] [place] [address] Mar, [facility] [place] [address] [facility] [id number] [address] [place] [address] Mar, [facility] [place] [address] [facility] [id number] [address] [place] [address] Mar, [facility] [place] [address] [facility] [id number] [address] [place] [address] Mar, Major depressive disorder, r ecurrent episode, severe, specified as with psychotic behavior 296.34 and Bipolar I disorder, most recent episode (or current) mixed, moderate 296.62 [facility] [place] [address] [place] [id number] [address] [place] [address] Mar, Diabetes 250.00 ; Anuria 788 .5 ; Nausea and vomiting 787.01 and Diarrhea 787.91 [facility] [place] [address] [place] [id number] [address] [place] [address] Mar, Diabetes 250.00 [facility] [place] [address] [facility] [id number] [address] [place] [address] Mar, [facility] [place] [address] [place] [id number] [address] [place] [address] Mar, Diabetes 250.00 [facility] [place] [address] [facility] [id number] [address] [place] [address] Mar, [facility] [place] [address] [facility] [id number] [address] [place] [address] Mar, [facility] [place] [address] [facility] [id number] [address] [place] [address] Mar, [facility] [place] [address] [facility] [id number] [address] [place] [address] Mar, [facility] [place] [address] [facility] [id number] [address] [place] [address] Mar, Bipolar I disorder, most rec ent episode (or current) mixed, moderate 296.62 and Major depressive disorder, recurrent episode, severe, specified as with psychotic behavior 296.[address] [address] Mar, Magnesium deficiency 275.2 ; Hypokalemia 276.8 ; Nausea & vomiting 787.01 and Diabetes mellitus type 2, uncontrolled 250.[address] [address] Feb, [address] [address] Feb, Bipolar I disorder, most rec ent episode (or current) mixed, moderate 296.[address] [address] Feb, Nausea and vomiting 787.01 ; Left elbow pain 719.42 ; Anuria 788.5 and Diabetes 250.[address] [address] Feb, [address] [address] Feb, Hypopotassemia 276.8 and Hyp okalemia 276.[address] [address] Feb, Hypopotassemia 276.8 and Hyp okalemia 276.[address] [address] Feb, Seborrheic keratoses 702.[address] [address] Feb, Hypopotassemia 276.8 and Low magnesium levels 275.[address] [address] January, [address] [address] January, [place] [id number] [address] [place] [address] January, [facility] [address] [id number] [address] [place] [address] January, Scalp lesion 709.9 [facility] [address] [id number] [address] [place] [address] January, [facility] [address] [id number] [address] [place] [address] Dec, Tear of medial cartilage or meniscus of knee, current 836.0 [address] [facility] [address] [id number] [address] [place] [address] Dec, 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 [address] [id number] [address] [place] [address] Dec, [facility] [address] [id number] [address] [place] [address] Dec, [facility] [place] [address] [id number] [address] [place] [address] Nov, [facility] [address] [id number] [address] [place] [address] Nov, [facility] [address] [id number] [address] [place] [address] Nov, [facility] [address] [id number] [address] [place] [address] Nov, [facility] [address] [id number] [address] [place] [address] Nov, [facility] [address] [id number] [address] [place] [address] Nov, [facility] [address] [id number] [address] [place] [address], [place] [address] Nov, 2014 [facility] [address] [id number] [address] [place] [address], [place] [address] Nov, 2014 [facility] [address] [id number] [address] [place] [address], [place] [address] Nov, 2014 [facility] [address] [id number] [address] [place] [address], [place] [address] Nov, [facility] [address] [id number] [address] [place] [address], [place] [address] Nov, [facility] [address] [id number] [address] [place] [address], [place] [address] Nov, [facility] [address] [id number] [address] [place] [address], [place] [address] Oct, 2014 [facility] [address] [id number] [address] [place] [address] Oct, 2014 [facility] [address] [id number] [address] [place] [address] Oct, 2014 [facility] [address] [id number] [address] [place] [address] Oct, 2014 [facility] [address] [id number] [address] [place] [address] Oct, 2014 [facility] [address] [id number] [address] [place] [address] Oct, 2014 [facility] [address] [id number] [address] [place] [address] Oct, 2014 [facility] [address] [id number] [address] [place] [address] Oct, 2014 [facility] [address] [id number] [address] [place] [address] 04 Fe2014 [facility] [address] [id number] [address] [place] [address], [place] [address] Sep, [facility] [address] [id number] [address] [place] [address], [place] [address] Sep, [facility] [address] [id number] [address] [place] [address], [place] [address] Sep, [facility] [address] [id number] [address] [place] [address], [place] [address] Sep, [facility] [address] [id number] [address] [place] [address], [place] [address] Sep, [facility] [address] [id number] [address] [place] [address], [place] [address] Sep, [facility] [address] [id number] [address] [place] [address], [place] [address] Sep, [facility] [address] [id number] [address] [place] [address], [place] [address] Sep, [facility] [address] [id number] [address] [place] [address], [place] [address] Sep, [facility] [address] [id number] [address] [place] [address], [place] [address] Sep, [facility] [address] [id number] [address] [place] [address], [place] [address] Sep, [facility] [address] [id number] [address] [place] [address], [place] [address] Sep, [facility] [address] [id number] [address] [place] [address], [place] [address] Sep, [facility] [address] [id number] [address] [place] [address], [place] [address] Sep, [facility] [address] [id number] [address] [place] [address], [place] [address] Sep, [facility] [address] [id number] [address] [place] [address], [place] [address] Sep, [facility] [address] [id number] [address] [place] [address], [place] [address] Aug, [facility] [address] [id number] [address] [place] [address], [place] [address] Aug, [facility] [address] [id number] [address] [place] [address], [place] [address] Aug, [facility] [address] [id number] [address] [place] [address], [place] [address] Aug, [facility] [address] [id number] [address] [place] [address], [place] [address] Aug, [facility] [address] [id number] [address] [place] [address], [place] [address] Aug, [facility] [address] [id number] [address] [place] [address], [place] [address] Aug, [facility] [address] [id number] [address] [place] [address], [place] [address] Aug, [facility] [address] [id number] [address] [place] [address], [place] [address] Aug, [facility] [address] [id number] [address] [place] [address], [place] [address] Aug, [facility] [address] [id number] [address] [place] [address], [place] [address] Aug, [facility] [address] [place] [id number] Aug, [facility] [address] [id number] [address] [place] [address], [place] [address] Aug, [facility] [address] [id number] [address] [place] [address], [place] [address] Aug, [facility] [address] [id number] [address] [place] [address], [place] [address] Aug, [facility] [address] [id number] [address] [place] [address], [place] [address] 10 Aug, 2014 [facility] [address] [id number] [address] [place] [address], [place] [address] Aug, [facility] [address] [id number] [address] [place] [address], [place] [address] Aug, [facility] [address] [id number] [address] [place] [address], [place] [address] Aug, [facility] [address] [id number] [address] [place] [address], [place] [address] Aug, [facility] [address] [id number] [address] [place] [address], [place] [address] Aug, [facility] [address] [id number] [address] [place] [address], [place] [address] Aug, [facility] [address] [id number] [address] [place] [address], [place] [address] Aug, [facility] [address] [id number] [address] [place] [address], [place] [address] Aug, [facility] [address] [id number] [address] [place] [address], [place] [address] Aug, [facility] [address] [id number] [address] [place] [address], [place] [address] Aug, [facility] [address] [id number] [address] [place] [address], [place] [address] Aug, [facility] [address] [id number] [address] [place] [address], [place] [address] Aug, [facility] [address] [id number] [address] [place] [address], [place] [address] Aug, [facility] [address] [id number] [address] [place] [address], [place] [address] Aug, [facility] [address] [id number] [address] [place] [address], [place] [address] Jul, [facility] [address] [id number] [address] [place] [address], [place] [address] Jul, [facility] [address] [id number] [address] [place] [address], [place] [address] Jul, [facility] [address] [id number] [address] [place] [address], [place] [address] Jul, [facility] [address] [id number] [address] [place] [address], [place] [address] Jul, [facility] [address] [id number] [address] [place] [address], [place] [address] Jul, [facility] [address] [id number] [address] [place] [address], [place] [address] Jul, [facility] [address] [id number] [address] [place] [address], [place] [address] Jul, [facility] [address] [id number] [address] [place] [address], [place] [address] Jul, [facility] [address] [id number] [address] [place] [address], [place] [address] Jul, [facility] [address] [id number] [address] [place] [address], [place] [address] Jun, [facility] [address] [id number] [address] [place] [address], [place] [address] Jun, [facility] [address] [id number] [address] [place] [address], [place] [address] Jun, [facility] [address] [id number] [address] [place] [address], [place] [address] 16 Jun, 2014 [facility] [address] [id number] [address] [place] [address], [place] [address] 15 Jun, 2014 [facility] [address] [id number] [address] [place] [address], [place] [address] 15 Jun, 2014 [facility] [address] [id number] [address] [place] [address], [place] [address] Jun, [facility] [address] [id number] [address] [place] [address], [place] [address] Jun, [facility] [address] [id number] [address] [place] [address], [place] [address] Jun, [facility] [address] [id number] [address] [place] [address], [place] [address] Jun, [facility] [address] [id number] [address] [place] [address], [place] [address] 29 May, 2013 [facility] [address] [id number] [address] [place] [address], [place] [address] 29 Sep, 2013 [facility] [address] [id number] [address] [place] [address], [place] [address] 26 May, 2013 [facility] [address] [id number] [address] [place] [address], [place] [address] 26 May, 2013 [facility] [address] [id number] [address] [place] [address], [place] [address] 17 May, 2013 [facility] [address] [id number] [address] [place] [address], [place] [address] 17 May, 2013 [facility] [address] [id number] [address] [place] [address], [place] [address] 15 May, 2013 [facility] [address] [id number] [address] [place] [address], [place] [address] 15 May, 2013 [facility] [address] [id number] [address] [place] [address], [place] [address] 15 Sep, 2013 [facility] [address] [id number] [address] [place] [address], [place] [address] 15 Sep, 2013 [facility] [address] [id number] [address] [place] [address], [place] [address] 10 May, 2013 [facility] [address] [id number] [address] [place] [address], [place] [address] 10 May, 2013 [facility] [address] [id number] [facility] [address] May, 2013 [facility] [address] [id number] [address] [place] [address], [place] [address] May, 2013 [facility] [address] [id number] [facility] [address] May, [facility] [address] [id number] [address] [place] [address], [place] [address] May, [facility] [address] [id number] [address] [place] [address], [place] [address] Apr, [facility] [address] [id number] [address] [place] [address], [place] [address] Apr, [facility] [address] [id number] [address] [place] [address], [place] [address] Apr, [facility] [address] [id number] [address] [place] [address], [place] [address] Apr, [facility] [address] [id number] [address] [place] [address], [place] [address] Apr, [facility] [address] [id number] [address] [place] [address], [place] [address] Apr, [facility] [address] [id number] [address] [place] [address], [place] [address] Apr, [facility] [address] [id number] [address] [place] [address], [place] [address] Apr, [facility] [address] [id number] [address] [place] [address], [place] [address] Apr, [facility] [address] [id number] [address] [place] [address], [place] [address] Apr, [facility] [address] [id number] [address] [place] [address], [place] [address] Apr, [facility] [address] [id number] [address] [place] [address], [place] [address] Apr, [facility] [address] [id number] [address] [place] [address], [place] [address] Apr, [facility] [address] [id number] [address] [place] [address], [place] [address] Apr, [facility] [address] [id number] [address] [place] [address], [place] [address] Apr, [facility] [address] [id number] [address] [place] [address], [place] [address] Mar, [facility] [address] [id number] [address] [place] [address], [place] [address] Mar, [facility] [address] [id number] [address] [place] [address], [place] [address] Mar, [facility] [address] [id number] [address] [place] [address], [place] [address] Mar, [facility] [address] [id number] [address] [place] [address], [place] [address] Mar, [facility] [address] [id number] [address] [place] [address], [place] [address] Mar, [facility] [address] [id number] [address] [place] [address], [place] [address] Mar, [facility] [address] [id number] [address] [place] [address], [place] [address] Mar, [facility] [address] [id number] [address] [place] [address], [place] [address] Mar, [facility] [address] [id number] [address] [place] [address], [place] [address] Mar, [facility] [address] [id number] [address] [place] [address], [place] [address] Mar, [facility] [address] [id number] [address] [place] [address], [place] [address] Mar, [facility] [address] [id number] [address] [place] [address], [place] [address] Mar, 2013 [facility] [address] [id number] [facility] [address] Mar, 2013 [facility] [address] [id number] [address] [place] [address], [place] [address] Mar, 2013 [facility] [address] [id number] [address] [place] [address], [place] [address] Mar, 2013 [facility] [address] [id number] [address] [place] [address], [place] [address] Mar, 2013 [facility] [address] [id number] [address] [place] [address], [place] [address] Mar, [facility] [address] [id number] [address] [place] [address], [place] [address] Feb, [facility] [address] [id number] [address] [place] [address], [place] [address] Feb, [facility] [address] [id number] [address] [place] [address], [place] [address] Feb, [facility] [address] [id number] [address] [place] [address], [place] [address] Feb, [facility] [address] [id number] [address] [place] [address], [place] [address] Feb, [facility] [address] [id number] [address] [place] [address], [place] [address] Feb, [facility] [address] [id number] [address] [place] [address], [place] [address] Feb, [facility] [address] [id number] [address] [place] [address], [place] [address] Feb, [facility] [address] [id number] [address] [place] [address], [place] [address] Feb, [facility] [address] [id number] [address] [place] [address], [place] [address] Feb, [facility] [address] [id number] [facility] [address] Feb, [facility] [address] [id number] [facility] [address] Feb, [facility] [address] [id number] [facility] [address] Feb, [facility] [address] [id number] [facility] [address] Feb, [facility] [address] [id number] [facility] [address] January, [facility] [address] [id number] [facility] [place] [address] January, [facility] [address] [id number] [facility] [address] January, [facility] [address] [id number] [address] [place] [address], [place] [address] January, [facility] [address] [id number] [address] [place] [address], [place] [address] January, [facility] [address] [id number] [address] [place] [address], [place] [address] January, [facility] [address] [id number] [address] [place] [address], [place] [address] January, [facility] [address] [id number] [address] [place] [address], [place] [address] January, [facility] [address] [id number] [address] [place] [address], [place] [address] January, [facility] [address] [id number] [address] [place] [address], [place] [address] January, [facility] [address] [id number] [facility] [place] [address] January, [facility] [address] [id number] [address] [place] [address], [place] [address] January, [facility] [address] [id number] [facility] [address] January, [facility] [address] [id number] [address] [place] [address], [place] [address] January, [facility] [address] [id number] [address] [place] [address], [place] [address] Dec, [facility] [address] [id number] [address] [place] [address], [place] [address] Dec, [facility] [address] [id number] [address] [place] [address], [place] [address] Dec, [facility] [address] [id number] [address] [place] [address], [place] [address] Dec, [facility] [address] [id number] [address] [place] [address], [place] [address] Dec, [facility] [address] [id number] [address] [place] [address], [place] [address] Dec, [facility] [address] [id number] [address] [place] [address], [place] [address] Dec, [facility] [address] [id number] [address] [place] [address], [place] [address] Dec, [facility] [address] [id number] [address] [place] [address], [place] [address] Dec, [facility] [address] [id number] [address] [place] [address], [place] [address] Dec, [facility] [address] [id number] [address] [place] [address], [place] [address] Nov, [facility] [address] [id number] [address] [place] [address], [place] [address] Nov, [facility] [address] [id number] [address] [place] [address], [place] [address] Nov, [facility] [address] [id number] [address] [place] [address], [place] [address] 10 Nov, 2013 [facility] [address] [id number] [facility] [address] 08 Nov, 2013 [facility] [address] [id number] [address] [place] [address], [place] [address] 08 Nov, 2013 [facility] [address] [id number] [address] [place] [address], [place] [address] 05 Nov, 2013 [facility] [address] [id number] [address] [place] [address], [place] [address] 05 Nov, 2013 [facility] [address] [id number] [address] [place] [address], [place] [address] Nov, [facility] [address] [id number] [address] [place] [address], [place] [address] Nov, [facility] [address] [id number] [address] [place] [address], [place] [address] 27 Oct, 2013 [facility] [address] [id number] [address] [place] [address], [place] [address] 27 Oct, 2013 [facility] [address] [id number] [address] [place] [address], [place] [address] 21 Oct, 2013 [facility] [address] [id number] [address] [place] [address], [place] [address] Oct, [facility] [address] [id number] [address] [place] [address], [place] [address] 20 Oct, 2013 [facility] [address] [id number] [address] [place] [address], [place] [address] 20 Oct, 2013 [facility] [address] [id number] [address] [place] [address], [place] [address] 14 Oct, 2013 [facility] [address] [id number] [address] [place] [address], [place] [address] 14 Oct, 2013 [facility] [address] [id number] [address] [place] [address], [place] [address] Oct, [facility] [address] [id number] [facility] [address] Oct, [facility] [address] [id number] [address] [place] [address], [place] [address] Oct, [facility] [address] [id number] [address] [place] [address], [place] [address] Oct, [facility] [address] [id number] [address] [place] [address], [place] [address] Oct, [facility] [address] [id number] [address] [place] [address], [place] [address] Oct, [facility] [address] [id number] [address] [place] [address], [place] [address] Sep, [facility] [address] [id number] [address] [place] [address], [place] [address] Sep, [facility] [address] [id number] [address] [place] [address], [place] [address] Sep, [facility] [address] [id number] [address] [place] [address], [place] [address] Sep, [facility] [address] [id number] [address] [place] [address], [place] [address] Sep, [facility] [address] [id number] [address] [place] [address], [place] [address] Sep, [facility] [address] [id number] [address] [place] [address], [place] [address] Sep, [facility] [address] [id number] [address] [place] [address], [place] [address] Sep, [facility] [address] [id number] [address] [place] [address], [place] [address] Sep, [facility] [address] [id number] [address] [place] [address], [place] [address] Sep, [facility] [address] [id number] [address] [place] [address], [place] [address] 10 Aug, 2013 [facility] [address] [id number] [address] [place] [address], [place] [address] Aug, [facility] [address] [id number] [address] [place] [address], [place] [address] Jul, [facility] [address] [id number] [address] [place] [address], [place] [address] Jul, [facility] [address] [id number] [address] [place] [address], [place] [address] Jul, [facility] [address] [id number] [address] [place] [address], [place] [address] Jul, [facility] [address] [id number] [address] [place] [address], [place] [address] Jul, [facility] [address] [id number] [address] [place] [address], [place] [address] Jul, [facility] [address] [id number] [address] [place] [address], [place] [address] Jul, [facility] [address] [id number] [address] [place] [address], [place] [address] Jul, [facility] [address] [id number] [address] [place] [address], [place] [address] Jul, [facility] [address] [id number] [address] [place] [address], [place] [address] Jul, [facility] [address] [id number] [address] [place] [address], [place] [address] Jul, [facility] [address] [id number] [address] [place] [address], [place] [address] 06 Jul, 2013 [facility] [address] [id number] [address] [place] [address], [place] [address] 06 Jul, 2013 [facility] [address] [id number] [address] [place] [address], [place] [address] Jul, [facility] [address] [id number] [address] [place] [address], [place] [address] Jul, 2012 [facility] [address] [id number] [address] [place] [address], [place] [address] Jul, [facility] [address] [id number] [address] [place] [address], [place] [address] Jul, 2012 [facility] [address] [id number] [address] [place] [address], [place] [address] Jul, [facility] [address] [id number] [address] [place] [address], [place] [address] Jul, [facility] [address] [id number] [address] [place] [address], [place] [address] Jun, 2012 [facility] [address] [id number] [address] [place] [address], [place] [address] Jun, [facility] [address] [id number] [address] [place] [address] Jun, 2012 [facility] [address] [id number] [address] [place] [address], [place] [address] Jun, 2012 [facility] [address] [id number] [address] [place] [address] Jun, 2012 [facility] [address] [id number] [address] [place] [address] Jun, 2012 [facility] [address] [id number] [address] [place] [address] Jun, [facility] [address] [id number] [address] [place] [address] Jun, [facility] [address] [id number] [address] [place] [address] Jun, [facility] [address] [id number] [address] [place] [address] Jun, [facility] [address] [id number] [address] [place] [address] Jun, [facility] [address] [id number] [address] [place] [address], [place] [address] May, 2012 [facility] [address] [id number] [address] [place] [address], [place] [address] May, [facility] [address] [id number] [address] [place] [address], [place] [address] May, 2012 [facility] [address] [id number] [address] [place] [address], [place] [address] 17 May, 2012 [facility] [address] [id number] [address] [place] [address], [place] [address] 11 May, 2013 [facility] [address] [id number] [address] [place] [address], [place] [address] May, [facility] [address] [id number] [address] [place] [address], [place] [address] May, [facility] [address] [id number] [address] [place] [address], [place] [address] May, [facility] [address] [id number] [address] [place] [address], [place] [address] Apr, [facility] [address] [id number] [address] [place] [address], [place] [address] Apr, [facility] [address] [id number] [address] [place] [address], [place] [address] Apr, [facility] [address] [id number] [address] [place] [address], [place] [address] Apr, [facility] [address] [id number] [address] [place] [address], [place] [address] Apr, [facility] [address] [id number] [address] [place] [address], [place] [address] Mar, [facility] [address] [id number] [address] [place] [address], [place] [address] Mar, [facility] [address] [id number] [facility] [address] Mar, [facility] [address] [id number] [address] [place] [address], [place] [address] Mar, [facility] [address] [id number] [address] [place] [address], [place] [address] Mar, [facility] [address] [id number] [address] [place] [address], [place] [address] Mar, [facility] [address] [id number] [address] [place] [address], [place] [address] Mar, [facility] [address] [id number] [address] [place] [address], [place] [address] Mar, [facility] [address] [id number] [address] [place] [address], [place] [address] Feb, [facility] [address] [id number] [address] [place] [address], [place] [address] Feb, [facility] [address] [id number] [address] [place] [address], [place] [address] January, [facility] [address] [id number] [address] [place] [address], [place] [address] January, [facility] [address] [id number] [address] [place] [address], [place] [address] Dec, [facility] [address] [id number] [address] [place] [address], [place] [address] Dec, [facility] [address] [id number] [address] [place] [address], [place] [address] Nov, [facility] [address] [id number] [address] [place] [address], [place] [address] Nov, [facility] [address] [id number] [address] [place] [address], [place] [address] Nov, [facility] [address] [id number] [address] [place] [address], [place] [address] Nov, [facility] [address] [id number] [address] [place] [address], [place] [address] Oct, [facility] [address] [id number] [address] [place] [address], [place] [address] Oct, [facility] [address] [id number] [address] [place] [address], [place] [address] Oct, [facility] [address] [id number] [address] [place] [address], [place] [address] Oct, [facility] [address] [id number] [address] [place] [address], [place] [address] 16 Oct, 2012 [facility] [address] [id number] [address] [place] [address], [place] [address] 14 Oct, 2012 [facility] [address] [id number] [address] [place] [address], [place] [address] 08 Oct, 2012 [facility] [address] [id number] [address] [place] [address], [place] [address] 07 Oct, 2012 [facility] [address] [id number] [address] [place] [address], [place] [address] 03 Oct, 2012 [facility] [address] [id number] [address] [place] [address], [place] [address] Sep, [facility] [address] [id number] [address] [place] [address], [place] [address] Sep, [facility] [address] [id number] [address] [place] [address], [place] [address] Sep, [facility] [address] [id number] [address] [place] [address], [place] [address] Sep, [facility] [address] [id number] [address] [place] [address], [place] [address] Sep, [facility] [address] [id number] [address] [place] [address], [place] [address] Sep, [facility] [address] [id number] [address] [place] [address], [place] [address] Sep, [facility] [address] [id number] [address] [place] [address], [place] [address] Sep, [facility] [address] [id number] [address] [place] [address], [place] [address] Aug, [facility] [address] [id number] [address] [place] [address], [place] [address] Aug, [facility] [address] [id number] [address] [place] [address], [place] [address] Aug, [facility] [address] [id number] [address] [place] [address], [place] [address] Aug, [facility] [address] [id number] [address] [place] [address], [place] [address] Aug, [facility] [address] [id number] [address] [place] [address], [place] [address] Aug, [facility] [address] [id number] [address] [place] [address], [place] [address] Aug, [facility] [address] [id number] [address] [place] [address], [place] [address] Aug, [facility] [address] [id number] [address] [place] [address], [place] [address] Jul, [facility] [address] [id number] [address] [place] [address], [place] [address] Jul, [facility] [address] [id number] [address] [place] [address], [place] [address] Jul, [facility] [address] [id number] [address] [place] [address], [place] [address] Jul, [facility] [address] [id number] [address] [place] [address], [place] [address] Jul, [facility] [address] [id number] [address] [place] [address], [place] [address] Jul, [facility] [address] [id number] [address] [place] [address], [place] [address] Jun, [facility] [address] [id number] [address] [place] [address], [place] [address] Jun, [facility] [address] [id number] [address] [place] [address], [place] [address] Jun, [facility] [address] [id number] [address] [place] [address], [place] [address] Jun, [facility] [address] [id number] [address] [place] [address], [place] [address] Jun, [facility] [address] [id number] [address] [place] [address], [place] [address] Jun, [facility] [address] [id number] [address] [place] [address], [place] [address] Jun, [facility] [address] [id number] [address] [place] [address], [place] [address] Jun, [facility] [address] [id number] [address] [place] [address], [place] [address] Jun, [facility] [address] [id number] [address] [place] [address], [place] [address] May, [facility] [address] [id number] [address] [place] [address], [place] [address] 24 May, 2012 [facility] [address] [id number] [address] [place] [address] 18 May, 2012 [facility] [address] [id number] [address] [place] [address], [place] [address] Apr, [facility] [address] [id number] [address] [place] [address], [place] [address] Apr, [facility] [address] [id number] [address] [place] [address], [place] [address] Apr, [facility] [address] [id number] [address] [place] [address], [place] [address] 14 Apr, 2012 [facility] [address] [id number] [address] [place] [address], [place] [address] Apr, [facility] [address] [id number] [address] [place] [address], [place] [address] Apr, [facility] [address] [id number] [address] [place] [address], [place] [address] Mar, [facility] [address] [id number] [address] [place] [address], [place] [address] Mar, [facility] [address] [id number] [address] [place] [address], [place] [address] Mar, [facility] [address] [id number] [address] [place] [address], [place] [address] Mar, [facility] [address] [id number] [address] [place] [address], [place] [address] Feb, [facility] [address] [id number] [address] [place] [address], [place] [address] Feb, [facility] [address] [id number] [address] [place] [address], [place] [address] Feb, [facility] [address] [id number] [address] [place] [address], [place] [address] Feb, [facility] [address] [id number] [address] [place] [address], [place] [address] Feb, [facility] [address] [id number] [address] [place] [address], [place] [address] January, [facility] [address] [id number] [address] [place] [address], [place] [address] January, [facility] [address] [id number] [address] [place] [address], [place] [address] January, [facility] [address] [id number] [address] [place] [address], [place] [address] January, [facility] [address] [id number] [address] [place] [address], [place] [address] January, [facility] [address] [id number] [address] [place] [address], [place] [address] January, [facility] [address] [id number] [address] [place] [address], [place] [address] Dec, [facility] [address] [id number] [address] [place] [address], [place] [address] Dec, [facility] [address] [id number] [address] [place] [address], [place] [address] Dec, [facility] [address] [id number] [address] [place] [address], [place] [address] Dec, [facility] [address] [id number] [address] [place] [address], [place] [address] Dec, [facility] [address] [id number] [address] [place] [address], [place] [address] Nov, [facility] [address] [id number] [address] [place] [address], [place] [address] Nov, [facility] [address] [id number] [address] [place] [address], [place] [address] Nov, [facility] [address] [id number] [address] [place] [address], [place] [address] Nov, [facility] [address] [id number] [address] [place] [address], [place] [address] Oct, [facility] [address] [id number] [address] [place] [address], [place] [address] Oct, [facility] [address] [id number] [address] [place] [address], [place] [address] 24 Oct, 2011 [facility] [address] [id number] [address] [place] [address], [place] [address] Oct, [facility] [address] [id number] [address] [place] [address], [place] [address] Oct, [facility] [address] [id number] [address] [place] [address], [place] [address] Sep, [facility] [address] [id number] [address] [place] [address], [place] [address] Sep, [facility] [address] [id number] [address] [place] [address], [place] [address] Sep, [facility] [address] [id number] [address] [place] [address], [place] [address] Sep, [facility] [address] [id number] [address] [place] [address], [place] [address] Sep, [facility] [address] [id number] [address] [place] [address], [place] [address] Sep, [facility] [address] [id number] [address] [place] [address], [place] [address] Aug, [facility] [address] [id number] [address] [place] [address], [place] [address] Aug, [facility] [address] [id number] [address] [place] [address], [place] [address] Aug, [facility] [address] [id number] [address] [place] [address], [place] [address] Jul, [facility] [address] [id number] [address] [place] [address], [place] [address] Jul, [facility] [address] [id number] [address] [place] [address] Jul, [facility] [address] [id number] [address] [place] [address], [place] [address] Jul, [facility] [address] [id number] [address] [place] [address], [place] [address] Jun, [facility] [address] [id number] [address] [place] [address], [place] [address] Jun, [facility] [address] [id number] [address] [place] [address], [place] [address] 18 Jun, 2011 [facility] [address] [id number] [address] [place] [address], [place] [address] 10 Jun, 2011 [facility] [address] [id number] [address] [place] [address], [place] [address] 10 Jun, 2011 [facility] [address] [id number] [address] [place] [address], [place] [address] 10 Jun, 2011 [facility] [address] [id number] [address] [place] [address], [place] [address] 11 Mar, 2011 [facility] [address] [id number] [address] [place] [address], [place] [address] 18 Dec, 2010 [facility] [address] [id number] [address] [place] [address], [place] [address] 11 Dec, 2010 [facility] [address] [id number] [address] [place] [address], [place] [address] 18 Nov, 2010 [facility] [address] [id number] [address] [place] [address], [place] [address] 16 Nov, 2010 [facility] [address] [id number] [address] [place] [address], [place] [address] Sep, [facility] [address] [id number] [address] [place] [address], [place] [address] 31 Aug, 2010 [facility] [address] [id number] [address] [place] [address], [place] [address] Aug, [facility] [address] [id number] [address] [place] [address], [place] [address] 29 Aug, 2010 [facility] [address] [id number] [address] [place] [address], [place] [address] 29 Aug, 2010 [facility] [address] [id number] [address] [place] [address], [place] [address] 27 Aug, 2010 [facility] [address] [id number] [address] [place] [address], [place] [address] 14 Aug, 2010 [facility] [address] [id number] [address] [place] [address], [place] [address] 08 Aug, 2010 [facility] [address] [id number] [address] [place] [address], [place] [address] 08 Aug, 2010 [facility] [address] [id number] [address] [place] [address], [place] [address] Aug, [facility] [address] [id number] [address] [place] [address] Aug, [facility] [address] [id number] [address] [place] [address], [place] [address] Aug, [facility] [address] [id number] [address] [place] [address] Aug, [facility] [address] [id number] [address] [place] [address] Jul, [facility] [address] [id number] [address] [place] [address] Jul, [facility] [address] [id number] [address] [place] [address] Jul, [facility] [address] [id number] [address] [place] [address] Jul, [facility] [address] [id number] [address] [place] [address] Jul, [facility] [address] [id number] [address] [place] [address] Jul, [facility] [address] [id number] [address] [place] [address], [place] [address] Jun, [facility] [address] [id number] [address] [place] [address] Jun, [facility] [address] [id number] [address] [place] [address] Jun, [facility] [address] [id number] [address] [place] [address], [place] [address] 13 Jun, 2010 [facility] [address] [id number] [address] [place] [address], [place] [address] 16 Apr, 2010 [facility] [address] [id number] [address] [place] [address], [place] [address] 20 Mar, 2010 [facility] [address] [id number] [address] [place] [address], [place] [address] 17 Feb, 2010 [facility] [address] [id number] [address] [place] [address], [place] [address] January, [facility] [address] [id number] [address] [place] [address], [place] [address] 15 Dec, 2009 [facility] [address] [id number] [address] [place] [address], [place] [address] Nov, [facility] [address] [id number] [address] [place] [address], [place] [address] 31 Aug, 2009 [facility] [address] [id number] [address] [place] [address], [place] [address] 23 Aug, 2009 [facility] [address] [id number] [address] [place] [address], [place] [address] 07 Aug, 2009 [facility] [address] [id number] [address] [place] [address], [place] [address] 12 Jul, 2009 [facility] [address] [id number] [address] [place] [address], [place] [address] 09 Jul, 2009 [facility] [address] [id number] [address] [place] [address], [place] [address] 07 Jul, 2009 [facility] [address] [id number] [address] [place] [address], [place] [address] 30 Jun, 2009 [facility] [address] [id number] [address] [place] [address], [place] [address] 29 Jun, 2009 [facility] [address] [id number] [address] [place] [address], [place] [address] Jun, [facility] [address] [id number] [address] [place] [address] Jun, [facility] [address] [id number] [address] [place] [phone] Jun, [facility] [place] [address] [id number] [address] [place] [phone] Jun, [facility] [place] [address] [id number] [address] [place] [phone] Apr, [facility] [place] [address] [id number] [address] [place] [phone] Apr, [facility] [place] [address] [id number] [address] [place] [phone] Feb, [facility] [place] [address] [facility] [id number] [address] [place] [phone] January, [facility] [place] [address] [facility] [id number] [address] [place] [phone] Dec, IMMUNIZATIONS No Known Immunizations SOCIAL HISTORY Never Assessed REASON FOR VISIT PLAN OF CARE VITAL SIGNS MEDICATIONS Unknown Medications RESULTS No Results PROCEDURES Procedure Date Ordered Result Body Site PSYTX PT&/FAMILY 45 MINUTES March 06, 2013 INSTRUCTIONS MEDICATIONS ADMINISTERED No Known Medications [...] History inability to urinate 09/16/15 Hospitalization History [facility] inpatient mental health ea rly 2000's Hospitalization History hyperkalemia 10/2017 Hospitalization History fluid in lung
--- OUTSIDE RECORDS SUMMARY | 2020-04-11 11:13 | XMS REPORT ---
Author Author Michele WASHBURN Organization [facility] Address [address] [place] [address] Care Team Providers Care Mammography Supervisor Name Role Phone NOEMI WASHBURN Unavailable PROBLEMS Type Condition ICD9-CM Code UUI46-GT Code Onset Dates Condition S tatus SNOMED Code Problem Reactive airway disease J45.909 Active 899991772877 Problem Insomnia, unspecified type G47.00 Act sharon 291887669 Problem Bipolar I disorder, most recent episode (or curr ent) mixed, moderate F31.62 Active 30910312 Problem Morbid obesity E66.01 Active 59101 6002 Problem Anxiety F41.9 Active 98157901 Problem Diabetic polyneuropathy associated with type 2 d iabetes mellitus E11.42 Active 83203799 Problem Essential hypertension I10 Active 34285932 Problem Bipolar disorder F31.9 Active 137 39880 Problem Chronic pain G89.29 Active 9988675 1 Problem Skin cancer C44.90 Active 80312374 7 Problem DM neuro manif type II E11.49 Active 62458459 Problem Leukocytosis D72.829 Active 0202191 06 Problem Diabetes E11.9 Active 37163023 Problem 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 Active 565867787 Problem Retinal edema H35.81 Active 112466 6 Problem Bipolar disorder, in partial remission, most rec ent episode depressed F31.75 Active 33054262 Problem Benign prostatic hyperplasia with lower urinary tract symptoms, unspecified morphology N40.1 Active 81310 6007 Problem Falling R29.6 Active 915474572 Problem Lymphocytosis D72.820 Active 095598 09 Problem Primary osteoarthritis of right knee M17.11 Active 854809857574227 Problem Hypokalemia E87.6 Active 05311931 Problem Pure hypercholesterolemia E78.00 Acti ve 566910303 Problem Eustachian tube dysfunction, unspecified laterality H69.80 Active 24873690 Problem Mild cognitive impairment G31.84 Acti ve 766141747 Problem Cough R05 Active 05442495 Problem Other iron deficiency anemia D50.8 A ctive 96979605 Problem Dysuria R30.0 Active 61889361 Problem Chronic diastolic (congestive) heart failure I50.3 2 Active 660893160 Problem Psychophysiological insomnia F51.04 A ctive 637886286 Problem Type 2 diabetes mellitus with diabetic neuropathy, uns pecified E11.40 Active 40298010 Problem Other secondary acute gout, 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 0 Active 873921907 Problem Bilateral primary osteoarthritis of knee M17.0 Active 365005234 Problem PVD (peripheral vascular disease) I73.9 Active 537113484 Problem Polyneuropathy associated with underlying disease G63 Active 434190661 Problem Eye exam abnormal R93.8 Active 16 3813405 Problem Anemia of chronic illness D63.8 Acti ve 492699588 Problem Pressure ulcer of other site, stage 3 L89.893 Active 336347147 Problem FCI (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 Z79.4 Active 614615999 Problem Mood disorder F39 Active 425065 05 Problem Chronic lymphocytic leukemia C91.10 A ctive 13473311 Problem Bipolar I disorder, most recent episode depressed, moderat e F31.32 Active 425470689 Problem Gastroesophageal reflux disease without esophagitis K21.9 Active 631372730 ALLERGIES No Information ENCOUNTERS Encounter Location Date Diagnosis [place] [address] [address] [facility] [id number] [address] [place] [id number] 15 Mar, 2020 [place] [address] [facility] [id number] [address] [place] [id number] 03 Mar, 2020 [place] [address] [facility] [id number] [address] [place] [phone] 18 Feb, 2020 [facility] [address] [facility] [id number] [address] [place] [id number] 17 Feb, 2020 Chronic pain G89.29 [place] [address] [address] [facility] [id number] [address] [place] [id number] 17 Feb, 2020 [place] [address] [facility] [id number] [address] [place] [id number] 17 Feb, 2020 PVD (peripheral vascular dis ease) I73.9 ; Status post CVA Z86.73 ; Status post carotid endarterectomy Z98.890 ; Vertigo R42 ; Mild cognitive impairment G31.84 ; Type 2 diabetes mellitus with diabetic neuropathy, unspecified E11.40 and Essential hypertension I10 [facility] [address] [id number] [address] [place] [id number] Feb, [facility] [address] [id number] [address] [place] [phone] Feb, [facility] [address] [id number] [address] [place] [id number] January, [facility] [address] [id number] [address] [place] [address] January, Chronic pain G89.29 [facility] [address] [id number] [address] [place] [address] Dec, [facility] [address] [id number] [address] [place] [address] Dec, Chronic pain G89.29 [facility] [address] [id number] [address] [place] [id number] Dec, [facility] [address] [id number] [address] [place] [phone] Dec, [facility] [address] [id number] [address] [place] [phone] Dec, Gastroesophageal reflux dise ase without esophagitis K21.9 and Pure hypercholesterolemia E78.00 [facility] [address] [id number] [address] [place] [address] Dec, Mood disorder F39 [facility] [address] [id number] [address] [place] [id number] Nov, Other secondary acute gout, 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 [facility] [address] [id number] [address] [place] [id number] Nov, Gastroesophageal reflux dise ase without esophagitis K21.9 [facility] [address] [facility] [id number] [address] [place] [address] Nov, Chronic pain G89.29 [facility] [address] [facility] [id number] [address] [place] [address] Nov, Bipolar I disorder, most rec ent episode depressed, moderate F31.32 ; Anxiety F41.9 and Mild cognitive impairment G31.84 [facility] [address] [facility] [id number] [address] [place] [phone] Nov, [facility] [address] [facility] [id number] [address] [place] [phone] Nov, Syncope, unspecified syncope type R55 [facility] [address] [facility] [id number] [address] [place] [id number] Nov, Mood disorder F39 [facility] [address] [facility] [id number] [address] [place] [phone] Oct, Chronic pain G89.29 [facility] [address] [facility] [id number] [address] [place] [id number] Oct, [facility] [address] [facility] [id number] [address] [place] [id number] Oct, Mood disorder F39 [facility] [address] [facility] [id number] [address] [place] [id number] Oct, [facility] [address] [facility] [id number] [address] [place] [id number] Oct, Bipolar disorder, in partial remission, most recent episode depressed F31.75 and Mild cognitive impairment G31.84 [facility] [address] [facility] [id number] [address] [place] [phone] Oct, Mood disorder F39 [facility] [address] [facility] [id number] [address] [place] [phone] Sep, [facility] [address] [facility] [id number] [address] [place] [id number] Sep, Mood disorder F39 [facility] [address] [id number] [address] [place] [address] Sep, Bipolar disorder, in partial remission, most recent episode depressed F31.75 and Mild cognitive impairment G31.84 [facility] [address] [id number] [address] [place] [id number] Sep, Mood disorder F39 [facility] [address] [id number] [address] [place] [phone] Sep, [facility] [address] [id number] [address] [place] [id number] Sep, Mood disorder F39 [facility] [address] [id number] [address] [place] [id number] Sep, [facility] [address] [id number] [address] [place] [id number] Aug, Mood disorder F39 [facility] [address] [id number] [address] [place] [id number] Aug, [facility] [address] [id number] [address] [place] [id number] Aug, [facility] [address] [id number] [address] [place] [phone] Aug, [facility] [address] [id number] [address] [place] [id number] Aug, [facility] [address] [id number] [address] [place] [id number] Aug, [facility] [address] [id number] [address] [place] [id number] Aug, [facility] [address] [id number] [address] [place] [id number] Aug, [facility] [address] [id number] [address] [place] [id number] Aug, Essential hypertension I10 [facility] [address] [id number] [address] [place] [phone] Aug, Bipolar disorder, in partial remission, most recent episode depressed F31.75 and Mild cognitive impairment G31.84 [facility] [address] [id number] [address] [place] [address] Aug, Mood disorder F39 [facility] [address] [id number] [address] [place] [id number] Aug, [facility] [address] [id number] [address] [place] [id number] Aug, Bipolar disorder, in partial remission, most recent episode depressed F31.75 and Mild cognitive impairment G31.84 [facility] [address] [id number] [address] [place] [id number] Jul, Bipolar disorder, in partial remission, most recent episode depressed F31.75 and Mild cognitive impairment G31.84 [facility] [address] [id number] [address] [place] [id number] Jul, Psychophysiological insomnia F51.04 [facility] [address] [id number] [address] [place] [id number] Jul, [facility] [address] [id number] [address] [place] [id number] Jul, [facility] [address] [id number] [address] [place] [id number] Jul, [facility] [address] [id number] [address] [place] [id number] Jul, [facility] [address] [id number] [address] [place] [id number] Jul, [facility] [address] [id number] [address] [place] [id number] Jul, [facility] [address] [id number] [address] [place] [id number] Jul, Bipolar disorder, in partial remission, most recent episode depressed F31.75 and Mild cognitive impairment G31.84 [place] [address] [facility] [id number] [address] [place] [id number] Jul, Chronic pain G89.29 ; Diabet es E11.9 ; Essential hypertension I10 ; Ill feeling R68.89 ; Local infection of the skin and subcutaneous tissue, unspecified L08.9 and Other injury of unspecified body region, initial encounter T14.8XXA [place] [address] [address] [facility] [id number] [address] [place] [id number] Jun, Bipolar disorder, in partial remission, most recent episode depressed F31.75 and Mild cognitive impairment G31.84 [place] [address] [address] [facility] [id number] [address] [place] [id number] Jun, [place] [address] [address] [facility] [id number] [address] [place] [id number] Jun, Bipolar disorder, in partial remission, most recent episode depressed F31.75 and Mild cognitive impairment G31.84 [place] [address] [address] [facility] [id number] [address] [place] [id number] Jun, Psychophysiological insomnia F51.04 [place] [address] [address] [facility] [id number] [address] [place] [address] Jun, Psychophysiological insomnia F51.04 ; Chronic pain G89.29 ; Bipolar I disorder, most recent episode (or current) mixed, moderate F31.62 ; 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 ; Polyneuropathy associated with underlying disease G63 ; Type 2 diabetes mellitus with diabetic neuropathy, unspecified E11.40 ; FCI (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 Z79.4 and Hyperglycemia R73.9 [place] [address] [address] [facility] [id number] [address] [place] [phone] Jun, Bipolar disorder, in partial remission, most recent episode depressed F31.75 and Mild cognitive impairment G31.84 [place] [address] [address] [facility] [id number] [address] [place] [phone] Jun, [place] [address] [address] [place] [id number] [address] [place] [phone] Jun, Bipolar disorder F31.9 [facility] [address] [facility] [id number] [address] [place] [phone] May, Bipolar disorder, in partial remission, most recent episode depressed F31.75 and Mild cognitive impairment G31.84 [facility] [address] [id number] [address] [place] [id number] May, [facility] [address] [facility] [id number] [address] [place] [address] Apr, Chronic pain G89.29 and Bipo lar disorder F31.9 [facility] [address] [id number] [address] [place] [id number] Mar, Bipolar disorder F31.9 and C hronic pain G89.29 [facility] [address] [facility] [id number] [address] [place] [id number] Feb, Bipolar disorder F31.9 [facility] [address] [id number] [address] [place] [id number] Feb, Cellulitis of right upper ex tremity L03.113 and Skin abrasion T14.8XXA [facility] [address] [facility] [id number] [address] [place] [phone] Feb, Bipolar disorder, in partial remission, most recent episode depressed F31.75 and Mild cognitive impairment G31.84 [facility] [address] [facility] [id number] [address] [place] [id number] Feb, Chronic pain G89.29 [facility] [address] [facility] [id number] [address] [place] [id number] Feb, Bipolar disorder, in partial remission, most recent episode depressed F31.75 and Mild cognitive impairment G31.84 [facility] [address] [facility] [id number] [address] [place] [id number] January, Bipolar disorder, in partial remission, most recent episode depressed F31.75 and Mild cognitive impairment G31.84 [facility] [address] [id number] [address] [place] [id number] 16 Jan, 2019 Chronic pain G89.29 and Bipo lar disorder F31.9 [facility] [address] [id number] [address] [place] [id number] January, Bipolar disorder, in partial remission, most recent episode depressed F31.75 and Mild cognitive impairment G31.84 [facility] [address] [id number] [address] [place] [id number] Dec, [facility] [address] [id number] [address] [place] [phone] Dec, Chronic pain G89.29 and Bipo lar disorder F31.9 [facility] [address] [id number] [address] [place] [id number] Dec, Edema of both lower extremit ies R60.0 [facility] [address] [id number] [address] [place] [address] Dec, Bipolar disorder F31.9 [facility] [address] [id number] [address] [place] [phone] Dec, Bipolar disorder, in partial remission, most recent episode depressed F31.75 and Mild cognitive impairment G31.84 [facility] [address] [id number] [address] [place] [address] Nov, [facility] [address] [id number] [address] [place] [address] Nov, Chronic pain G89.29 [facility] [address] [id number] [address] [place] [id number] Nov, Bipolar disorder, in partial remission, most recent episode depressed F31.75 and Mild cognitive impairment G31.84 [facility] [address] [id number] [address] [place] [phone] Nov, Bipolar disorder F31.9 [facility] [address] [id number] [address] [place] [id number] 04 Nov, 2018 Encounter for Medicare annua [...] unspecified morphology N40.1 and Essential hypertension I10 [address] [address] 21 Oct, 2018 Chronic pain G89.[address] [address] 18 Oct, 2018 Diabetes E11.9 [id number] [address] [place] [address] Oct, Bipolar I disorder, most rec ent episode (or current) mixed, moderate F31.62 and Mild cognitive impairment G31.84 [place] [id number] [place] [address] Oct, Bipolar I disorder, most rec ent episode (or current) mixed, moderate F31.62 and Mild cognitive impairment G31.84 [place] [id number] [address] [place] [address] Sep, Bipolar I disorder, most rec ent episode (or current) mixed, moderate F31.62 and Mild cognitive impairment G31.84 [place] [id number] [place] [address] Sep, [address] [address] Sep, Diabetes E11.9 ; Hypoxia R09 .02 ; Hyperglycemia R73.9 ; Therapeutic drug monitoring Z51.81 ; BMI 50.0-59.9, adult Z68.43 and Skin cancer C44.90 [facility] [address] [id number] [address] [place] [id number] Sep, Chronic pain G89.29 [facility] [address] [id number] [address] [place] [id number] Sep, Bipolar I disorder, most rec ent episode (or current) mixed, moderate F31.62 [facility] [address] [id number] [address] [place] [id number] Sep, [facility] [address] [id number] [address] [place] [id number] Sep, [facility] [address] [id number] [address] [place] [address] Aug, Chronic pain G89.29 [facility] [address] [id number] [address] [place] [id number] Aug, Bipolar I disorder, most rec ent episode (or current) mixed, moderate F31.62 [facility] [address] [id number] [address] [place] [id number] 04 Aug, 2018 Bipolar I disorder, most rec ent episode (or current) mixed, moderate F31.62 and Mild cognitive impairment G31.84 [facility] [address] [id number] [address] [place] [address] Jul, [facility] [address] [id number] [address] [place] [address] Jul, Chronic pain G89.29 [facility] [address] [id number] [address] [place] [id number] Jul, Bipolar I disorder, most rec ent episode (or current) mixed, moderate F31.62 and Mild cognitive impairment G31.84 [facility] [address] [id number] [address] [place] [address] Jul, Bipolar I disorder, most rec ent episode (or current) mixed, moderate F31.62 and MCI (mild cognitive impairment) G31.84 [facility] [address] [id number] [address] [place] [address] Jul, [facility] [address] [id number] [address] [place] [id number] Jul, [facility] [address] [id number] [address] [place] [id number] Jul, Bipolar I disorder, most rec ent episode (or current) mixed, moderate F31.62 [facility] [address] [id number] [address] [place] [address] Jul, Chronic pain G89.29 [facility] [address] [id number] [address] [place] [address] Jun, Bipolar I disorder, most rec ent episode (or current) mixed, moderate F31.62 [facility] [address] [id number] [address] [place] [address] Jun, Pre-procedure lab exam Z01.8 12 [facility] [address] [id number] [address] [place] [phone] Jun, [facility] [address] [id number] [place] [id number] Jun, [facility] [address] [id number] [address] [place] [address] Jun, [facility] [address] [facility] [id number] [address] [place] [address] Jun, Forgetfulness R68.89 ; Pre-s yncope R55 ; Localized edema R60.0 ; Other iron deficiency anemia D50.8 and BMI 50.0-59.9, adult Z68.43 [facility] [address] [id number] [address] [place] [address] Jun, Chronic pain G89.29 [facility] [address] [id number] [address] [place] [id number] Jun, Chronic pain G89.29 [place] [address] [address] [place] [id number] [address] [place] [address] Jun, Bipolar I disorder, most rec ent episode (or current) mixed, moderate F31.62 [place] [address] [address] 07 May, 2018 Chronic pain G89.29 [place] [address] [address] Apr, [place] [address] [address] Apr, Chronic pain G89.29 [place] [address] [address] Apr, Primary osteoarthritis of ri ght knee M17.11 [place] [address] [address] Mar, [place] [address] [address] Mar, BMI 50.0-59.9, adult Z68.43 and Bipolar disorder, in partial remission, most recent episode depressed F31.75 [place] [address] [address] Mar, Diabetes E11.9 ; Pure hyperc holesterolemia E78.00 ; Essential hypertension I10 ; Nausea with vomiting, unspecified R11.2 and Headache, unspecified headache type R51 [place] [address] [address] Mar, Bipolar I disorder, most rec ent episode (or current) mixed, moderate F31.62 [place] [address] [address] Mar, Bipolar I disorder, most rec ent episode (or current) mixed, moderate F31.62 [place] [address] [address] Mar, Chronic pain G89.29 [facility] [address] [id number] [address] [place] [id number] Mar, Bipolar I disorder, most rec ent episode (or current) mixed, moderate F31.62 [facility] [address] [id number] [address] [place] [id number] Feb, Bipolar I disorder, most rec ent episode (or current) mixed, moderate F31.62 [facility] [address] [facility] [id number] [address] [place] [id number] Feb, Chronic pain G89.29 [facility] [address] [id number] [address] [place] [id number] Feb, Decubitus ulcer of right josselin t, stage 3 L89.893 and BMI 50.0-59.9, adult Z68.43 [facility] [address] [facility] [id number] [address] [place] [id number] Feb, Bipolar I disorder, most rec ent episode (or current) mixed, moderate F31.62 [facility] [address] [facility] [id number] [address] [place] [id number] Feb, [facility] [address] [facility] [id number] [address] [place] [id number] January, [facility] [address] [facility] [id number] [address] [place] [id number] January, Chronic pain G89.29 [facility] [address] [facility] [id number] [address] [place] [place] [id number] January, Bipolar I disorder, most rec ent episode (or current) mixed, moderate F31.62 [facility] [address] [facility] [id number] [address] [place] [id number] January, Bipolar I disorder, most rec ent episode (or current) mixed, moderate F31.62 [facility] [address] [facility] [id number] [address] [place] [id number] Dec, Bipolar I disorder, most rec ent episode (or current) mixed, moderate F31.62 and BMI 50.0-59.9, adult Z68.43 [place] [address] [facility] [id number] [address] [place] [id number] Dec, Bipolar I disorder, most rec ent episode (or current) mixed, moderate F31.62 [place] [address] [address] [place] [id number] [address] [place] [address] Dec, Chronic pain G89.29 [place] [address] [facility] [id number] [address] [place] [phone] Dec, DM neuro manif type II E11.4 9 ; Right flank pain R10.9 ; technician terminal and repeater current use of opiate analgesic Z79.891 ; Encounter for medication monitoring Z51.81 and BMI 50.0-59.9, adult Z68.43 [place] [address] [place] [id number] [address] [place] [id number] Dec, Bipolar I disorder, most rec ent episode (or current) mixed, moderate F31.62 [place] [address] [facility] [id number] [address] [place] [id number] Nov, Bipolar I disorder, most rec ent episode (or current) mixed, moderate F31.62 [place] [address] [facility] [id number] [address] [place] [phone] Nov, Chronic pain G89.29 [place] [address] [facility] [id number] [address] [place] [id number] Nov, Bipolar I disorder, most rec ent episode (or current) mixed, moderate F31.62 [place] [address] [facility] [id number] [address] [place] [phone] Nov, Hypokalemia E87.6 [place] [address] [facility] [id number] [address] [place] [phone] Nov, Bipolar I disorder, most rec ent episode (or current) mixed, moderate F31.62 [place] [address] [facility] [id number] [address] [place] [id number] Oct, Chronic pain G89.29 [place] [address] [place] [id number] [place] [address] Oct, BMI 50.0-59.9, adult Z68.43 and Bipolar I disorder, most recent episode (or current) mixed, moderate F31.62 [place] [address] [address] Oct, Bipolar I disorder, most rec ent episode (or current) mixed, moderate F31.62 [place] [address] [place] [id number] [place] [address] Oct, [place] [address] [id number] Oct, Hypokalemia E87.6 [place] [address] [address] Oct, DM neuro manif type II E11.4 9 [place] [address] [place] [id number] [place] [id number] Oct, Bipolar I disorder, most rec ent episode (or current) mixed, moderate F31.62 [place] [address] [place] [id number] [place] [phone] Oct, Bipolar I disorder, most rec ent episode (or current) mixed, moderate F31.62 [place] [address] [place] [id number] [place] [phone] 14 Oct, 2017 Hyperkalemia E87.5 ; Falling R29.6 ; BMI 50.0-59.9, adult Z68.43 and Acute left ankle pain M25.572 [place] [address] [place] [id number] [address] [place] [address] Oct, DM neuro manif type II E11.4 9 [place] [address] [place] [id number] [address] [place] [id number] Oct, [facility] [address] [place] [id number] [address] [place] [address] Sep, Chronic pain G89.29 [place] [address] [place] [id number] [place] [address] Sep, [place] [address] [address] Sep, Bilateral primary osteoarthr itis of knee M17.0 [place] [address] [address] Sep, Generalized edema R60.1 [place] [address] [address] Sep, Bipolar I disorder, most rec ent episode (or current) mixed, moderate F31.62 [place] [address] [address] Sep, Hypoxia R09.02 ; Other hyper volemia E87.79 ; Diabetes E11.9 ; Retinal edema H35.81 ; Hypokalemia E87.6 ; 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 ; Anemia of chronic illness D63.8 and BMI 50.0- 59.9, adult Z68.43 [place] [address] [place] [id number] [address] [place] [address] Sep, [place] [address] [address] Sep, Bipolar I disorder, most rec ent episode (or current) mixed, moderate F31.62 [place] [address] [place] [id number] [address] [place] [address] Aug, Chronic pain G89.29 [place] [address] [place] [id number] [address] [place] [id number] Aug, Generalized edema R60.1 [place] [address] [place] [id number] [place] [address] Aug, [facility] [address] [place] [id number] [address] [place] [id number] Aug, [facility] [address] [facility] [id number] [address] [place] [id number] Aug, Bipolar I disorder, most rec ent episode (or current) mixed, moderate F31.62 [facility] [address] [place] [id number] [address] [place] [id number] Aug, Bipolar I disorder, most rec ent episode (or current) mixed, moderate F31.62 [place] [address] [facility] [id number] [address] [place] [address] Aug, Chronic pain G89.29 [place] [address] [place] [id number] [address] [place] [id number] Jul, Bipolar I disorder, most rec ent episode (or current) mixed, moderate F31.62 [place] [address] [place] [id number] [address] [place] [id number] Jul, Bipolar I disorder, most rec ent episode (or current) mixed, moderate F31.62 and BMI 60.0-69.9, adult Z68.44 [place] [address] [place] [id number] [address] [place] [id number] 16 Jul, 2017 Bipolar I disorder, most rec ent episode (or current) mixed, moderate F31.62 [place] [address] [place] [id number] [address] [place] [address] Jul, Chronic pain G89.29 [place] [address] [place] [id number] [address] [place] [address] 02 Jul, 2017 Bipolar I disorder, most rec ent episode (or current) mixed, moderate F31.62 [place] [address] [place] [id number] [address] [place] [id number] Jun, Polyneuropathy associated wi th underlying disease G63 and Diabetes E11.9 [place] [address] [facility] [id number] [address] [place] [id number] 16 Jun, 2017 Bipolar I disorder, most rec ent episode (or current) mixed, moderate F31.62 [facility] [address] [facility] [id number] [address] [place] [id number] 09 Jun, 2017 Chronic pain G89.29 [facility] [address] [place] [id number] [address] [place] [address] May, Bipolar I disorder, most rec ent episode (or current) mixed, moderate F31.62 [facility] [address] [facility] [id number] [address] [place] [id number] 21 May, 2017 Bipolar I disorder, most rec ent episode (or current) mixed, moderate F31.62 [place] [address] [place] [id number] [address] [place] [id number] May, Diabetic polyneuropathy asso ciated with type 2 diabetes mellitus E11.42 [place] [address] [place] [id number] [place] [id number] 18 May, 2017 Bipolar I disorder, most rec ent episode (or current) mixed, moderate F31.62 [place] [address] [place] [id number] [place] [id number] 13 May, 2017 Bipolar I disorder, most rec ent episode (or current) mixed, moderate F31.62 [place] [address] [address] May, Chronic pain G89.29 [facility] [address] [place] [id number] [address] [place] [address] Apr, Bipolar I disorder, most rec ent episode (or current) mixed, moderate F31.62 [facility] [address] [place] [id number] [address] [place] [address] Apr, [facility] [address] [place] [id number] [address] [place] [address] Apr, Chronic pain G89.29 and DM n euro manif type II E11.49 [facility] [address] [id number] [address] [place] [address] Apr, [facility] [address] [id number] [address] [place] [id number] Apr, Bipolar I disorder, most rec ent episode (or current) mixed, moderate F31.62 [facility] [address] [id number] [address] [place] [id number] Apr, Chronic pain G89.29 [facility] [address] [id number] [address] [place] [id number] Apr, Iliotibial band syndrome, le ft M76.32 [facility] [address] [facility] [id number] [address] [place] [id number] Apr, Bipolar I disorder, most rec ent episode (or current) mixed, moderate F31.62 [facility] [address] [facility] [id number] [address] [place] [id number] Mar, Bipolar I disorder, most rec ent episode (or current) mixed, moderate F31.62 [facility] [address] [id number] [address] [place] [id number] Mar, Bipolar I disorder, most rec ent episode (or current) mixed, moderate F31.62 [facility] [address] [id number] [address] [place] [id number] Mar, [facility] [address] [id number] [address] [place] [id number] Mar, Bipolar I disorder, most rec ent episode (or current) mixed, moderate F31.62 [facility] [address] [id number] [address] [place] [id number] Mar, Chronic pain G89.29 [facility] [address] [id number] [address] [place] [id number] Mar, Bipolar I disorder, most rec ent episode (or current) mixed, moderate F31.62 [facility] [address] [id number] [address] [place] [id number] Mar, Bipolar I disorder, most rec ent episode (or current) mixed, moderate F31.62 [facility] [address] [facility] [id number] [address] [place] [id number] Mar, Acute pain of left knee M25. 562 ; Left hip pain M25.552 ; Generalized edema R60.1 and Tongue swelling R22.0 [facility] [address] [facility] [id number] [address] [place] [id number] Mar, [facility] [address] [facility] [id number] [address] [place] [id number] Feb, Chronic pain G89.29 [facility] [address] [facility] [id number] [address] [place] [id number] Feb, Diabetes E11.9 [facility] [address] [facility] [id number] [address] [place] [address] January, Chronic pain G89.29 [facility] [address] [facility] [id number] [address] [place] [id number] January, [facility] [address] [facility] [id number] [address] [place] [phone] January, Bipolar I disorder, most rec ent episode (or current) mixed, moderate F31.62 [facility] [address] [place] [id number] [address] [place] [id number] Dec, Bipolar I disorder, most rec ent episode (or current) mixed, moderate F31.62 [facility] [address] [facility] [id number] [address] [place] [id number] Dec, Chronic pain G89.29 [facility] [address] [facility] [id number] [address] [place] [id number] Dec, Bipolar I disorder, most rec ent episode (or current) mixed, moderate F31.62 [facility] [address] [facility] [id number] [address] [place] [address] Dec, Diabetes E11.9 ; Essential h ypertension I10 ; Chronic pain G89.29 and Morbid obesity E66.01 [facility] [address] [facility] [id number] [address] [place] [id number] Dec, [facility] [address] [facility] [id number] [address] [place] [id number] Dec, Bipolar I disorder, most rec ent episode (or current) mixed, moderate F31.62 [facility] [address] [facility] [id number] [address] [place] [id number] Dec, Bipolar I disorder, most rec ent episode (or current) mixed, moderate F31.62 [facility] [address] [facility] [id number] [address] [place] [address] Nov, Chronic pain G89.29 [facility] [address] [facility] [id number] [address] [place] [id number] Nov, Bipolar I disorder, most rec ent episode (or current) mixed, moderate F31.62 [facility] [address] [facility] [id number] [address] [place] [id number] Nov, [facility] [address] [facility] [id number] [address] [place] [address] Nov, Bipolar I disorder, most rec ent episode (or current) mixed, moderate F31.62 [facility] [address] [facility] [id number] [address] [place] [id number] Nov, Bipolar I disorder, most rec ent episode (or current) mixed, moderate F31.62 [facility] [address] [facility] [id number] [address] [place] [id number] Nov, [facility] [address] [facility] [id number] [address] [place] [phone] Nov, [facility] [address] [facility] [id number] [address] [place] [id number] Nov, [facility] [address] [facility] [id number] [address] [place] [id number] Oct, Chronic pain G89.29 [facility] [address] [facility] [id number] [address] [place] [id number] Oct, Bipolar I disorder, most rec ent episode (or current) mixed, moderate F31.62 [facility] [address] [facility] [id number] [address] [place] [id number] Oct, [facility] [address] [facility] [id number] [address] [place] [address] Oct, Chronic pain G89.29 ; Diabet es E11.9 ; Anxiety F41.9 and 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 [facility] [address] [facility] [id number] [address] [place] [phone] Oct, [facility] [address] [facility] [id number] [address] [place] [id number] Oct, Diabetes E11.9 [facility] [address] [facility] [id number] [address] [place] [id number] Oct, Bipolar I disorder, most rec ent episode (or current) mixed, moderate F31.62 [facility] [address] [facility] [id number] [address] [place] [address] Sep, Chronic pain G89.29 [facility] [address] [facility] [id number] [address] [place] [id number] Sep, Chronic pain G89.29 [facility] [address] [facility] [id number] [address] [place] [id number] Aug, Chronic pain G89.29 [facility] [address] [facility] [id number] [address] [place] [id number] Jul, [facility] [address] [facility] [id number] [address] [place] [id number] Jul, Diabetes E11.9 [facility] [address] [facility] [id number] [address] [place] [id number] Jul, Chronic pain G89.29 [facility] [address] [facility] [id number] [address] [place] [id number] Jul, Bipolar I disorder, most rec ent episode (or current) mixed, moderate F31.62 [facility] [address] [facility] [id number] [address] [place] [id number] Jun, Bipolar I disorder, most rec ent episode (or current) mixed, moderate F31.62 [facility] [address] [facility] [id number] [address] [place] [id number] Jun, [facility] [address] [facility] [id number] [address] [place] [id number] Jun, Bipolar I disorder, most rec ent episode (or current) mixed, moderate F31.62 [place] [address] [facility] [id number] [address] [place] [address] May, Insomnia, unspecified type G 47.00 [facility] [address] [facility] [id number] [address] [place] [id number] May, Bipolar I disorder, most rec ent episode (or current) mixed, moderate F31.62 [place] [address] [facility] [id number] [address] [place] [id number] May, [facility] [address] [facility] [id number] [address] [place] [id number] May, Bipolar I disorder, most rec ent episode (or current) mixed, moderate F31.62 [facility] [address] [facility] [id number] [address] [place] [id number] May, Diabetes E11.9 and Essential hypertension I10 [facility] [address] [facility] [id number] [address] [place] [id number] Apr, Chronic pain G89.29 [facility] [address] [facility] [id number] [address] [place] [id number] Apr, Bipolar I disorder, most rec ent episode (or current) mixed, moderate F31.62 [place] [id number] [facility] [id number] [address] [place] [id number] Apr, [facility] [address] [facility] [id number] [address] [place] [address] Apr, [place] [address] [facility] [id number] [address] [place] [address] Mar, Chronic pain G89.29 ; Headac he, unspecified headache type R51 ; Neuropathy G62.9 ; Pain of right hip joint M25.551 and Essential hypertension I10 [place] [address] [facility] [id number] [address] [place] [id number] Mar, Chronic pain G89.29 [place] [address] [place] [id number] [address] [place] [address] Mar, Bipolar I disorder, most rec ent episode (or current) mixed, moderate F31.62 [place] [address] [place] [id number] [address] [place] [id number] Feb, Bipolar I disorder, most rec ent episode (or current) mixed, moderate F31.62 and Insomnia, unspecified type G47.00 [place] [address] [facility] [id number] [address] [place] [id number] Feb, Chronic pain G89.29 [place] [address] [facility] [id number] [address] [place] [id number] Feb, Bipolar I disorder, most rec ent episode (or current) mixed, moderate F31.62 [place] [address] [facility] [id number] [address] [place] [id number] January, Bipolar I disorder, most rec ent episode (or current) mixed, moderate F31.62 [place] [address] [facility] [id number] [address] [place] [address] January, Chronic pain G89.29 [place] [address] [facility] [id number] [address] [place] [id number] 18 May, 2016 Chronic pain G89.29 and Esse ntial hypertension I10 [facility] [address] [address] January, Bipolar I disorder, most rec ent episode (or current) mixed, moderate F31.62 [facility] [address] [place] [id number] [address] [place] [address] Dec, [facility] [address] [address] Dec, [facility] [address] [place] [id number] [address] [place] [id number] Dec, [facility] [address] [address] Dec, [facility] [address] [address] Nov, Reactive airway disease J45. 909 [facility] [address] [address] Nov, [facility] [address] [address] Nov, [facility] [address] [address] Nov, [facility] [address] [address] Nov, [facility] [address] [address] Nov, Onychomycosis B35.1 ; Hammer toe M20.40 ; [place] or callus L84 and DM neuro manif type II E11.49 [facility] [address] [place] [id number] [address] [place] [address] Nov, Chronic pain G89.29 ; Leukoc ytosis D72.829 and Diabetes E11.9 [facility] [address] [address] Nov, [facility] [address] [address] Oct, Bronchitis J40 [facility] [address] [address] Oct, [facility] [address] [address] Oct, [facility] [address] [address] Oct, Mastoiditis, unspecified lat erality H70.90 and Type 2 diabetes mellitus with complication E11.8 [place] [address] [id number] Sep, [place] [address] [id number] Sep, Dysuria R30.0 ; Cough R05 ; Benign prostatic hyperplasia with lower urinary tract symptoms, unspecified morphology N40.1 ; Hypokalemia E87.6 and Eustachian tube dysfunction, unspecified laterality H69.80 [place] [address] [id number] Sep, Moderate mixed bipolar I dis order F31.62 [place] [address] [id number] Sep, Hypokalemia E87.6 [place] [address] [id number] Sep, [place] [address] [address] Sep, Upper respiratory tract infe ction, unspecified type J06.9 [facility] [address] [place] [id number] [place] [id number] Aug, [place] [address] [address] Aug, Dysuria R30.0 [facility] [address] [id number] [address] [place] [id number] Aug, [facility] [address] [id number] [address] [place] [id number] Jul, [facility] [address] [id number] [address] [place] [id number] Jul, [facility] [address] [id number] [address] [place] [id number] Jul, [facility] [address] [id number] [address] [place] [id number] Jul, [facility] [address] [id number] [address] [place] [id number] Jun, [facility] [address] [id number] [address] [place] [id number] Jun, [facility] [address] [id number] [address] [place] [id number] Jun, [facility] [address] [id number] [address] [place] [id number] May, [facility] [address] [id number] [address] [place] [id number] May, Bipolar I disorder, most rec ent episode (or current) mixed, moderate 296.62 [facility] [address] [id number] [address] [place] [id number] 16 May, 2015 [facility] [address] [id number] [address] [place] [id number] May, Bipolar I disorder, most rec ent episode (or current) mixed, moderate 296.62 and Major depressive disorder, recurrent episode, severe, specified as with psychotic behavior 296.34 [facility] [address] [id number] [address] [place] [id number] May, Bipolar I disorder, most rec ent episode (or current) mixed, moderate 296.62 [facility] [address] [id number] [address] [place] [id number] May, [facility] [address] [id number] [address] [place] [id number] Apr, [facility] [address] [id number] [address] [place] [id number] Apr, [facility] [address] [facility] [id number] [address] [place] [id number] Apr, Unspecified disorder of kidn ey and ureter 593.9 and Diabetes mellitus type 2, uncontrolled 250.02 [facility] [address] [id number] [address] [place] [id number] Apr, [facility] [address] [id number] [address] [place] [id number] Apr, [facility] [address] [id number] [address] [place] [id number] Apr, [facility] [address] [id number] [address] [place] [id number] Apr, [facility] [address] [id number] [address] [place] [id number] Apr, Diabetes mellitus type II, u ncontrolled 250.02 [facility] [address] [id number] [address] [place] [id number] Apr, [facility] [address] [id number] [address] [place] [id number] Mar, [facility] [address] [id number] [address] [place] [id number] Mar, [facility] [address] [id number] [address] [place] [id number] Mar, [facility] [address] [facility] [id number] [address] [place] [id number] Mar, Major depressive disorder, r ecurrent episode, severe, specified as with psychotic behavior 296.34 and Bipolar I disorder, most recent episode (or current) mixed, moderate 296.62 [facility] [address] [place] [id number] [address] [place] [id number] Mar, Diabetes 250.00 ; Anuria 788 .5 ; Nausea and vomiting 787.01 and Diarrhea 787.91 [facility] [address] [place] [id number] [address] [place] [id number] Mar, Diabetes 250.00 [facility] [address] [place] [id number] [address] [place] [address] Mar, [facility] [address] [place] [id number] [place] [id number] Mar, Diabetes 250.00 [facility] [address] [place] [id number] [address] [place] [id number] Mar, [facility] [address] [address] Mar, [facility] [address] [place] [id number] [address] [place] [id number] Mar, [facility] [address] [place] [id number] [place] [id number] Mar, [facility] [address] [place] [id number] [address] [place] [id number] Mar, Bipolar I disorder, most rec ent episode (or current) mixed, moderate 296.62 and Major depressive disorder, recurrent episode, severe, specified as with psychotic behavior 296.34 [facility] [address] [place] [id number] [address] [place] [id number] Mar, Magnesium deficiency 275.2 ; Hypokalemia 276.8 ; Nausea & vomiting 787.01 and Diabetes mellitus type 2, uncontrolled 250.02 [facility] [address] [place] [id number] [address] [place] [id number] Feb, [facility] [address] [place] [id number] [place] [address] Feb, Bipolar I disorder, most rec ent episode (or current) mixed, moderate 296.62 [place] [address] [address] Feb, Nausea and vomiting 787.01 ; Left elbow pain 719.42 ; Anuria 788.5 and Diabetes 250.[address] [address] Feb, [place] [address] [address] Feb, Hypopotassemia 276.8 and Hyp okalemia 276.[address] [address] Feb, Hypopotassemia 276.8 and Hyp okalemia 276.[address] [address] Feb, Seborrheic keratoses 702.19 [place] [address] [address] Feb, Hypopotassemia 276.8 and Low magnesium levels 275.2 [place] [address] [address] January, [place] [address] [address] January, [place] [address] [address] January, [place] [address] [address] January, Scalp lesion 709.9 [place] [address] [address] January, [place] [address] [address] Dec, Tear of medial cartilage or meniscus of knee, current 836.0 and Chondromalacia 733.92 [facility] [address] [id number] [address] [place] [address], [place] [address] Dec, [facility] [address] [id number] [address] [place] [address], [place] [address] Dec, [facility] [address] [id number] [address] [place] [address], [place] [address] 28 Dec, 2014 Squamous cell carcinoma, 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 [facility] [address] [id number] [address] [place] [address], [place] [address] 14 Dec, 2014 [facility] [address] [id number] [address] [place] [address], [place] [address] Dec, [facility] [address] [id number] [address] [place] [address], [place] [address] Nov, [facility] [address] [id number] [address] [place] [address], [place] [address] Nov, [facility] [address] [id number] [address] [place] [address], [place] [address] Nov, [facility] [address] [id number] [address] [place] [address], [place] [address] Nov, [facility] [address] [id number] [address] [place] [address], [place] [address] Nov, [facility] [address] [id number] [address] [place] [address], [place] [address] Nov, [facility] [address] [id number] [address] [place] [address], [place] [address] Nov, [facility] [address] [id number] [address] [place] [address], [place] [address] Nov, [facility] [address] [id number] [address] [place] [address], [place] [address] Nov, [facility] [address] [id number] [address] [place] [address], [place] [address] Nov, [facility] [address] [id number] [address] [place] [address], [place] [address] Nov, [facility] [address] [id number] [address] [place] [address], [place] [address] Nov, [facility] [address] [id number] [address] [place] [address], [place] [address] Oct, 2014 [facility] [address] [id number] [address] [place] [address], [place] [address] Oct, 2014 [facility] [address] [id number] [address] [place] [address], [place] [address] Oct, 2014 [facility] [address] [id number] [address] [place] [address], [place] [address] Oct, 2014 [facility] [address] [id number] [address] [place] [address], [place] [address] Oct, 2014 [facility] [address] [id number] [address] [place] [address], [place] [address] Oct, [facility] [address] [id number] [address] [place] [address], [place] [address] Oct, [facility] [address] [id number] [address] [place] [address], [place] [address] Oct, [facility] [address] [id number] [address] [place] [address], [place] [address] Oct, [facility] [address] [id number] [address] [place] [address], [place] [address] Sep, [facility] [address] [id number] [address] [place] [address], [place] [address] Sep, [facility] [address] [id number] [address] [place] [address], [place] [address] Sep, [facility] [address] [id number] [address] [place] [address], [place] [address] Sep, [facility] [address] [id number] [address] [place] [address], [place] [address] Sep, [facility] [address] [id number] [address] [place] [address], [place] [address] Sep, [facility] [address] [id number] [address] [place] [address], [place] [address] Sep, [facility] [address] [id number] [address] [place] [address], [place] [address] Sep, [facility] [address] [id number] [address] [place] [address], [place] [address] Sep, [facility] [address] [id number] [address] [place] [address], [place] [address] Sep, [facility] [address] [id number] [address] [place] [address], [place] [address] Sep, [facility] [address] [id number] [address] [place] [address], [place] [address] Sep, [facility] [address] [id number] [address] [place] [address], [place] [address] Sep, [facility] [address] [id number] [address] [place] [address], [place] [address] Sep, [facility] [address] [id number] [address] [place] [address], [place] [address] Sep, [facility] [address] [id number] [address] [place] [address], [place] [address] Sep, [facility] [address] [id number] [address] [place] [address], [place] [address] Aug, [facility] [address] [id number] [address] [place] [address], [place] [address] Aug, [facility] [address] [id number] [address] [place] [address], [place] [address] Aug, [facility] [address] [id number] [address] [place] [address], [place] [address] Aug, [facility] [address] [id number] [facility] [place] [address] Aug, [facility] [address] [id number] [facility] [address] Aug, [facility] [address] [id number] [facility] [address] Aug, [facility] [address] [id number] [facility] [place] [address] Aug, [facility] [address] [id number] [facility] [address] Aug, [facility] [address] [id number] [address] [place] [address], [place] [address] Aug, [facility] [address] [id number] [facility] [address] Aug, [facility] [address] [place] [id number] Aug, [facility] [address] [id number] [facility] [address] Aug, [facility] [address] [id number] [address] [place] [address], [place] [address] Aug, [facility] [address] [id number] [address] [place] [address], [place] [address] Aug, [facility] [address] [id number] [address] [place] [address], [place] [address] Aug, [facility] [address] [id number] [facility] [address] Aug, [facility] [address] [id number] [facility] [address] Aug, [facility] [address] [id number] [facility] [place] [address] Aug, [facility] [address] [id number] [address] [place] [address], [place] [address] Aug, [facility] [address] [id number] [address] [place] [address], [place] [address] Aug, [facility] [address] [id number] [address] [place] [address], [place] [address] Aug, [facility] [address] [id number] [address] [place] [address], [place] [address] Aug, [facility] [address] [id number] [address] [place] [address], [place] [address] Aug, [facility] [address] [id number] [address] [place] [address], [place] [address] Aug, [facility] [address] [id number] [address] [place] [address], [place] [address] Aug, [facility] [address] [id number] [address] [place] [address], [place] [address] Aug, [facility] [address] [id number] [address] [place] [address], [place] [address] Aug, [facility] [address] [id number] [address] [place] [address], [place] [address] Aug, [facility] [address] [id number] [address] [place] [address], [place] [address] Aug, [facility] [address] [id number] [address] [place] [address], [place] [address] Jul, [facility] [address] [id number] [address] [place] [address], [place] [address] Jul, [facility] [address] [id number] [address] [place] [address], [place] [address] Jul, [facility] [address] [id number] [address] [place] [address], [place] [address] Jul, [facility] [address] [id number] [address] [place] [address], [place] [address] Jul, [facility] [address] [id number] [address] [place] [address], [place] [address] Jul, [facility] [address] [id number] [address] [place] [address], [place] [address] Jul, [facility] [address] [id number] [address] [place] [address], [place] [address] Jul, [facility] [address] [id number] [address] [place] [address], [place] [address] Jul, [facility] [address] [id number] [address] [place] [address], [place] [address] Jul, [facility] [address] [id number] [address] [place] [address], [place] [address] Jun, [facility] [address] [id number] [address] [place] [address], [place] [address] Jun, [facility] [address] [id number] [address] [place] [address], [place] [address] Jun, [facility] [address] [id number] [address] [place] [address], [place] [address] Jun, [facility] [address] [id number] [address] [place] [address], [place] [address] Jun, [facility] [address] [id number] [address] [place] [address], [place] [address] Jun, [facility] [address] [id number] [address] [place] [address], [place] [address] Jun, [facility] [address] [id number] [address] [place] [address], [place] [address] Jun, [facility] [address] [id number] [address] [place] [address], [place] [address] Jun, [facility] [address] [id number] [address] [place] [address], [place] [address] Jun, [facility] [address] [id number] [address] [place] [address], [place] [address] May, [facility] [address] [id number] [facility] [place] [address] 29 Sep, 2013 [facility] [address] [id number] [address] [place] [address], [place] [address] 26 Sep, 2013 [facility] [address] [id number] [address] [place] [address], [place] [address] 26 Sep, 2013 [facility] [address] [id number] [address] [place] [address], [place] [address] 17 Sep, 2013 [facility] [address] [id number] [address] [place] [address], [place] [address] 17 Sep, 2013 [facility] [address] [id number] [address] [place] [address], [place] [address] 15 Sep, 2013 [facility] [address] [id number] [address] [place] [address], [place] [address] 15 Sep, 2013 [facility] [address] [id number] [address] [place] [address], [place] [address] 15 Sep, 2013 [facility] [address] [id number] [address] [place] [address], [place] [address] 15 Sep, 2013 [facility] [address] [id number] [address] [place] [address], [place] [address] 10 Sep, 2013 [facility] [address] [id number] [address] [place] [address], [place] [address] 10 Sep, 2013 [facility] [address] [id number] [address] [place] [address], [place] [address] 09 Sep, 2013 [facility] [address] [id number] [address] [place] [address], [place] [address] 09 Sep, 2013 [facility] [address] [id number] [address] [place] [address], [place] [address] 04 Sep, 2013 [facility] [address] [id number] [address] [place] [address], [place] [address] 04 Sep, 2013 [facility] [address] [id number] [address] [place] [address], [place] [address] Apr, [facility] [address] [id number] [facility] [place] [address] Apr, [facility] [address] [id number] [address] [place] [address], [place] [address] Apr, [facility] [address] [id number] [address] [place] [address], [place] [address] Apr, [facility] [address] [id number] [address] [place] [address], [place] [address] Apr, [facility] [address] [id number] [address] [place] [address], [place] [address] Apr, [facility] [address] [id number] [address] [place] [address], [place] [address] Apr, [facility] [address] [id number] [address] [place] [address], [place] [address] Apr, [facility] [address] [id number] [address] [place] [address], [place] [address] Apr, [facility] [address] [id number] [address] [place] [address], [place] [address] Apr, [facility] [address] [id number] [address] [place] [address], [place] [address] Apr, [facility] [address] [id number] [address] [place] [address], [place] [address] Apr, [facility] [address] [id number] [address] [place] [address], [place] [address] Apr, [facility] [address] [id number] [address] [place] [address], [place] [address] Apr, [facility] [address] [id number] [address] [place] [address], [place] [address] Apr, [facility] [address] [id number] [address] [place] [address], [place] [address] Mar, [facility] [address] [id number] [facility] [place] [address] Mar, 2013 [facility] [address] [id number] [facility] [address] Mar, 2013 [facility] [address] [id number] [facility] [place] [address] Mar, 2013 [facility] [address] [id number] [facility] [address] Mar, 2013 [facility] [address] [id number] [facility] [address] Mar, 2013 [facility] [address] [id number] [address] [place] [address], [place] [address] Mar, 2013 [facility] [address] [id number] [address] [place] [address], [place] [address] Mar, 2013 [facility] [address] [id number] [address] [place] [address], [place] [address] Mar, 2013 [facility] [address] [id number] [address] [place] [address], [place] [address] Mar, 2013 [facility] [address] [id number] [address] [place] [address], [place] [address] Mar, 2013 [facility] [address] [id number] [address] [place] [address], [place] [address] Mar, 2013 [facility] [address] [id number] [address] [place] [address], [place] [address] Mar, 2013 [facility] [address] [id number] [address] [place] [address], [place] [address] Mar, 2013 [facility] [address] [id number] [address] [place] [address], [place] [address] Mar, 2013 [facility] [address] [id number] [address] [place] [address], [place] [address] Mar, 2013 [facility] [address] [id number] [address] [place] [address], [place] [address] Mar, [facility] [address] [id number] [facility] [place] [address] Mar, [facility] [address] [id number] [facility] [place] [address] Feb, [facility] [address] [id number] [facility] [place] [address] Feb, [facility] [address] [id number] [address] [place] [address], [place] [address] Feb, [facility] [address] [id number] [address] [place] [address], [place] [address] Feb, [facility] [address] [id number] [address] [place] [address], [place] [address] Feb, [facility] [address] [id number] [address] [place] [address], [place] [address] Feb, [facility] [address] [id number] [address] [place] [address], [place] [address] Feb, [facility] [address] [id number] [address] [place] [address], [place] [address] Feb, [facility] [address] [id number] [address] [place] [address], [place] [address] Feb, [facility] [address] [id number] [address] [place] [address], [place] [address] Feb, [facility] [address] [id number] [address] [place] [address], [place] [address] Feb, [facility] [address] [id number] [address] [place] [address], [place] [address] Feb, [facility] [address] [id number] [address] [place] [address], [place] [address] Feb, [facility] [address] [id number] [address] [place] [address], [place] [address] Feb, [facility] [address] [id number] [address] [place] [address], [place] [address] January, [facility] [address] [id number] [address] [place] [address], [place] [address] January, [facility] [address] [id number] [address] [place] [address], [place] [address] January, [facility] [address] [id number] [address] [place] [address], [place] [address] January, [facility] [address] [id number] [address] [place] [address], [place] [address] January, [facility] [address] [id number] [address] [place] [address], [place] [address] January, [facility] [address] [id number] [address] [place] [address], [place] [address] January, [facility] [address] [id number] [address] [place] [address], [place] [address] January, [facility] [address] [id number] [address] [place] [address], [place] [address] January, [facility] [address] [id number] [address] [place] [address], [place] [address] January, [facility] [address] [id number] [address] [place] [address], [place] [address] January, [facility] [address] [id number] [address] [place] [address], [place] [address] January, [facility] [address] [id number] [address] [place] [address], [place] [address] January, [facility] [address] [id number] [address] [place] [address], [place] [address] January, [facility] [address] [id number] [address] [place] [address], [place] [address] Dec, [facility] [address] [id number] [address] [place] [address], [place] [address] Dec, [facility] [address] [id number] [facility] [place] [address] Dec, [facility] [address] [id number] [address] [place] [address], [place] [address] Dec, [facility] [address] [id number] [address] [place] [address], [place] [address] Dec, [facility] [address] [id number] [address] [place] [address], [place] [address] Dec, [facility] [address] [id number] [address] [place] [address], [place] [address] Dec, [facility] [address] [id number] [address] [place] [address], [place] [address] Dec, [facility] [address] [id number] [address] [place] [address], [place] [address] Dec, [facility] [address] [id number] [address] [place] [address], [place] [address] Dec, [facility] [address] [id number] [address] [place] [address], [place] [address] Nov, [facility] [address] [id number] [address] [place] [address], [place] [address] Nov, [facility] [address] [id number] [address] [place] [address], [place] [address] Nov, [facility] [address] [id number] [address] [place] [address], [place] [address] Nov, [facility] [address] [id number] [address] [place] [address], [place] [address] Nov, [facility] [address] [id number] [address] [place] [address], [place] [address] Nov, [facility] [address] [id number] [address] [place] [address], [place] [address] Nov, [facility] [address] [id number] [address] [place] [address], [place] [address] Nov, [facility] [address] [id number] [facility] [place] [address] Nov, [facility] [address] [id number] [address] [place] [address], [place] [address] Nov, [facility] [address] [id number] [address] [place] [address], [place] [address] Oct, [facility] [address] [id number] [address] [place] [address], [place] [address] Oct, [facility] [address] [id number] [address] [place] [address], [place] [address] Oct, [facility] [address] [id number] [address] [place] [address], [place] [address] Oct, [facility] [address] [id number] [address] [place] [address], [place] [address] Oct, [facility] [address] [id number] [address] [place] [address], [place] [address] Oct, [facility] [address] [id number] [address] [place] [address], [place] [address] Oct, [facility] [address] [id number] [address] [place] [address], [place] [address] Oct, [facility] [address] [id number] [address] [place] [address], [place] [address] Oct, 2013 [facility] [address] [id number] [address] [place] [address], [place] [address] Oct, [facility] [address] [id number] [address] [place] [address], [place] [address] Oct, 2013 [facility] [address] [id number] [address] [place] [address], [place] [address] Oct, 2013 [facility] [address] [id number] [address] [place] [address], [place] [address] Oct, [facility] [address] [id number] [address] [place] [address], [place] [address] Oct, [facility] [address] [id number] [address] [place] [address], [place] [address] Sep, [facility] [address] [id number] [address] [place] [address], [place] [address] Sep, [facility] [address] [id number] [address] [place] [address], [place] [address] Sep, [facility] [address] [id number] [address] [place] [address], [place] [address] Sep, [facility] [address] [id number] [address] [place] [address], [place] [address] Sep, [facility] [address] [id number] [address] [place] [address], [place] [address] Sep, [facility] [address] [id number] [address] [place] [address], [place] [address] Sep, [facility] [address] [id number] [address] [place] [address], [place] [address] Sep, [facility] [address] [id number] [address] [place] [address], [place] [address] Sep, [facility] [address] [id number] [address] [place] [address], [place] [address] Sep, [facility] [address] [id number] [address] [place] [address], [place] [address] Aug, [facility] [address] [id number] [address] [place] [address], [place] [address] Aug, [facility] [address] [id number] [address] [place] [address], [place] [address] Jul, [facility] [address] [id number] [address] [place] [address], [place] [address] Jul, [facility] [address] [id number] [address] [place] [address], [place] [address] 13 Jul, 2013 [facility] [address] [id number] [address] [place] [address], [place] [address] 13 Jul, 2013 [facility] [address] [id number] [address] [place] [address], [place] [address] Jul, [facility] [address] [id number] [address] [place] [address], [place] [address] Jul, [facility] [address] [id number] [address] [place] [address], [place] [address] Jul, [facility] [address] [id number] [address] [place] [address], [place] [address] Jul, [facility] [address] [id number] [address] [place] [address], [place] [address] Jul, [facility] [address] [id number] [address] [place] [address], [place] [address] Jul, [facility] [address] [id number] [address] [place] [address], [place] [address] Jul, [facility] [address] [id number] [address] [place] [address], [place] [address] Jul, [facility] [address] [id number] [address] [place] [address], [place] [address] Jul, [facility] [address] [id number] [address] [place] [address], [place] [address] Jul, [facility] [address] [id number] [address] [place] [address], [place] [address] Jul, [facility] [address] [id number] [address] [place] [address], [place] [address] Jul, [facility] [address] [id number] [address] [place] [address], [place] [address] Jul, [facility] [address] [id number] [address] [place] [address], [place] [address] Jul, [facility] [address] [id number] [address] [place] [address], [place] [address] Jul, [facility] [address] [id number] [address] [place] [address], [place] [address] Jun, 2012 [facility] [address] [id number] [address] [place] [address], [place] [address] Jun, 2012 [facility] [address] [id number] [address] [place] [address], [place] [address] Jun, 2012 [facility] [address] [id number] [address] [place] [address], [place] [address] Jun, 2012 [facility] [address] [id number] [address] [place] [address], [place] [address] Jun, 2012 [facility] [address] [id number] [address] [place] [address], [place] [address] Jun, 2012 [facility] [address] [id number] [address] [place] [address], [place] [address] Jun, 2012 [facility] [address] [id number] [address] [place] [address], [place] [address] Jun, [facility] [address] [id number] [address] [place] [address], [place] [address] Jun, [facility] [address] [id number] [address] [place] [address], [place] [address] Jun, [facility] [address] [id number] [address] [place] [address], [place] [address] Jun, [facility] [address] [id number] [address] [place] [address], [place] [address] May, [facility] [address] [id number] [address] [place] [address], [place] [address] 25 May, 2012 [facility] [address] [id number] [address] [place] [address], [place] [address] 19 May, 2012 [facility] [address] [id number] [address] [place] [address], [place] [address] 17 May, 2013 [facility] [address] [id number] [address] [place] [address], [place] [address] 11 May, 2013 [facility] [address] [id number] [address] [place] [address], [place] [address] 10 May, 2013 [facility] [address] [id number] [address] [place] [address], [place] [address] May, [facility] [address] [id number] [address] [place] [address], [place] [address] 05 May, 2013 [facility] [address] [id number] [address] [place] [address], [place] [address] Apr, [facility] [address] [id number] [address] [place] [address], [place] [address] Apr, [facility] [address] [id number] [address] [place] [address], [place] [address] Apr, [facility] [address] [id number] [address] [place] [address], [place] [address] Apr, [facility] [address] [id number] [address] [place] [address], [place] [address] Apr, [facility] [address] [id number] [address] [place] [address], [place] [address] Mar, [facility] [address] [id number] [address] [place] [address], [place] [address] Mar, [facility] [address] [id number] [address] [place] [address], [place] [address] Mar, [facility] [address] [id number] [address] [place] [address], [place] [address] Mar, [facility] [address] [id number] [address] [place] [address], [place] [address] Mar, [facility] [address] [id number] [address] [place] [address], [place] [address] Mar, [facility] [address] [id number] [address] [place] [address], [place] [address] Mar, [facility] [address] [id number] [address] [place] [address], [place] [address] Mar, [facility] [address] [id number] [address] [place] [address], [place] [address] Feb, [facility] [address] [id number] [address] [place] [address], [place] [address] Feb, [facility] [address] [id number] [address] [place] [address], [place] [address] January, [facility] [address] [id number] [address] [place] [address], [place] [address] January, [facility] [address] [id number] [address] [place] [address], [place] [address] Dec, [facility] [address] [id number] [address] [place] [address], [place] [address] Dec, [facility] [address] [id number] [address] [place] [address], [place] [address] Nov, [facility] [address] [id number] [address] [place] [address], [place] [address] Nov, [facility] [address] [id number] [address] [place] [address], [place] [address] Nov, [facility] [address] [id number] [address] [place] [address], [place] [address] Nov, [facility] [address] [id number] [address] [place] [address], [place] [address] Oct, [facility] [address] [id number] [address] [place] [address], [place] [address] Oct, [facility] [address] [id number] [address] [place] [address], [place] [address] Oct, [facility] [address] [id number] [address] [place] [address], [place] [address] Oct, [facility] [address] [id number] [address] [place] [address], [place] [address] 16 Oct, 2012 [facility] [address] [id number] [address] [place] [address], [place] [address] 14 Oct, 2012 [facility] [address] [id number] [address] [place] [address], [place] [address] 08 Oct, 2012 [facility] [address] [id number] [address] [place] [address], [place] [address] 07 Oct, 2012 [facility] [address] [id number] [address] [place] [address], [place] [address] Oct, [facility] [address] [id number] [address] [place] [address], [place] [address] Sep, [facility] [address] [id number] [address] [place] [address], [place] [address] Sep, [facility] [address] [id number] [address] [place] [address], [place] [address] Sep, [facility] [address] [id number] [address] [place] [address], [place] [address] Sep, [facility] [address] [id number] [address] [place] [address], [place] [address] Sep, [facility] [address] [id number] [address] [place] [address], [place] [address] Sep, [facility] [address] [id number] [address] [place] [address], [place] [address] Sep, [facility] [address] [id number] [address] [place] [address], [place] [address] Sep, [facility] [address] [id number] [address] [place] [address], [place] [address] Aug, [facility] [address] [id number] [address] [place] [address], [place] [address] Aug, [facility] [address] [id number] [address] [place] [address], [place] [address] Aug, [facility] [address] [id number] [address] [place] [address], [place] [address] Aug, [facility] [address] [id number] [address] [place] [address], [place] [address] Aug, [facility] [address] [id number] [address] [place] [address], [place] [address] Aug, [facility] [address] [id number] [address] [place] [address], [place] [address] Aug, [facility] [address] [id number] [address] [place] [address], [place] [address] Aug, [facility] [address] [id number] [address] [place] [address], [place] [address] Jul, [facility] [address] [id number] [address] [place] [address], [place] [address] Jul, [facility] [address] [id number] [address] [place] [address], [place] [address] Jul, [facility] [address] [id number] [address] [place] [address], [place] [address] Jul, [facility] [address] [id number] [address] [place] [address], [place] [address] Jul, [facility] [address] [id number] [address] [place] [address], [place] [address] Jul, [facility] [address] [id number] [address] [place] [address], [place] [address] Jun, [facility] [address] [id number] [address] [place] [address], [place] [address] Jun, [facility] [address] [id number] [address] [place] [address], [place] [address] Jun, [facility] [address] [id number] [address] [place] [address], [place] [address] Jun, [facility] [address] [id number] [address] [place] [address], [place] [address] Jun, [facility] [address] [id number] [address] [place] [address], [place] [address] Jun, [facility] [address] [id number] [address] [place] [address], [place] [address] Jun, [facility] [address] [id number] [address] [place] [address], [place] [address] Jun, [facility] [address] [id number] [address] [place] [address], [place] [address] 10 Jun, 2012 [facility] [address] [id number] [address] [place] [address], [place] [address] 26 May, 2012 [facility] [address] [id number] [address] [place] [address], [place] [address] 24 May, 2012 [facility] [address] [id number] [address] [place] [address], [place] [address] 18 May, 2012 [facility] [address] [id number] [address] [place] [address], [place] [address] 30 Apr, 2012 [facility] [address] [id number] [address] [place] [address], [place] [address] 29 Apr, 2012 [facility] [address] [id number] [address] [place] [address], [place] [address] Apr, [facility] [address] [id number] [address] [place] [address] 14 Apr, 2012 [facility] [address] [id number] [address] [place] [address], [place] [address] Apr, [facility] [address] [id number] [address] [place] [address], [place] [address] Apr, [facility] [address] [id number] [address] [place] [address] Mar, [facility] [address] [id number] [address] [place] [address], [place] [address] Mar, [facility] [address] [id number] [address] [place] [address], [place] [address] Mar, [facility] [address] [id number] [address] [place] [address], [place] [address] Mar, [facility] [address] [id number] [address] [place] [address], [place] [address] Feb, [facility] [address] [id number] [address] [place] [address], [place] [address] Feb, [facility] [address] [id number] [address] [place] [address], [place] [address] Feb, [facility] [address] [id number] [address] [place] [address], [place] [address] Feb, [facility] [address] [id number] [address] [place] [address], [place] [address] Feb, [facility] [address] [id number] [address] [place] [address], [place] [address] January, [facility] [address] [id number] [address] [place] [address], [place] [address] January, [facility] [address] [id number] [address] [place] [address], [place] [address] January, [facility] [address] [id number] [address] [place] [address], [place] [address] January, [facility] [address] [id number] [address] [place] [address], [place] [address] January, [facility] [address] [id number] [address] [place] [address], [place] [address] January, [facility] [address] [id number] [address] [place] [address], [place] [address] Dec, [facility] [address] [id number] [address] [place] [address], [place] [address] Dec, [facility] [address] [id number] [address] [place] [address], [place] [address] 17 Dec, 2011 [facility] [address] [id number] [address] [place] [address], [place] [address] 09 Dec, 2011 [facility] [address] [id number] [address] [place] [address], [place] [address] 06 Dec, 2011 [facility] [address] [id number] [address] [place] [address], [place] [address] 27 Nov, 2011 [facility] [address] [id number] [address] [place] [address], [place] [address] 14 Nov, 2011 [facility] [address] [id number] [address] [place] [address], [place] [address] Nov, [facility] [address] [id number] [address] [place] [address], [place] [address] 07 Nov, 2011 [facility] [address] [id number] [address] [place] [address], [place] [address] 29 Oct, 2011 [facility] [address] [id number] [address] [place] [address], [place] [address] 28 Oct, 2011 [facility] [address] [id number] [address] [place] [address], [place] [address] 24 Oct, 2011 [facility] [address] [id number] [address] [place] [address], [place] [address] 13 Oct, 2011 [facility] [address] [id number] [address] [place] [address], [place] [address] 08 Oct, 2011 [facility] [address] [id number] [address] [place] [address], [place] [address] Sep, [facility] [address] [id number] [address] [place] [address], [place] [address] 30 Sep, 2011 [facility] [address] [id number] [address] [place] [address], [place] [address] 12 Sep, 2011 [facility] [address] [id number] [address] [place] [id number] Sep, [facility] [address] [id number] [address] [place] [address], [place] [address] Sep, [facility] [address] [id number] [address] [place] [address], [place] [address] Sep, [facility] [address] [id number] [address] [place] [address], [place] [address] Aug, [facility] [address] [id number] [address] [place] [address] Aug, [facility] [address] [id number] [address] [place] [address], [place] [address] Aug, [facility] [address] [id number] [address] [place] [address], [place] [address] Jul, [facility] [address] [id number] [address] [place] [address], [place] [address] Jul, [facility] [address] [id number] [address] [place] [address], [place] [address] Jul, [facility] [address] [id number] [address] [place] [address], [place] [address] Jul, [facility] [address] [id number] [address] [place] [address], [place] [address] Jun, [facility] [address] [id number] [address] [place] [address] Jun, [facility] [address] [id number] [address] [place] [id number] 18 Jun, 2011 [facility] [address] [id number] [address] [place] [address], [place] [address] Jun, [facility] [address] [id number] [address] [place] [address], [place] [address] Jun, [facility] [address] [id number] [address] [place] [address], [place] [address] Jun, [facility] [address] [id number] [address] [place] [address], [place] [address] 11 Mar, 2011 [facility] [address] [id number] [address] [place] [address], [place] [address] 18 Dec, 2010 [facility] [address] [id number] [address] [place] [address], [place] [address] 11 Dec, 2010 [facility] [address] [id number] [address] [place] [address], [place] [address] 18 Nov, 2010 [facility] [address] [id number] [address] [place] [address], [place] [address] 16 Nov, 2010 [facility] [address] [id number] [address] [place] [address], [place] [address] 10 Sep, 2010 [facility] [address] [id number] [address] [place] [address], [place] [address] 31 Aug, 2010 [facility] [address] [id number] [address] [place] [address], [place] [address] 29 Aug, 2010 [facility] [address] [id number] [address] [place] [address], [place] [address] 29 Aug, 2010 [facility] [address] [id number] [address] [place] [address], [place] [address] 29 Aug, 2010 [facility] [address] [id number] [address] [place] [address], [place] [address] 27 Aug, 2010 [facility] [address] [id number] [address] [place] [address], [place] [address] 14 Aug, 2010 [facility] [address] [id number] [address] [place] [address], [place] [id number] 08 Aug, 2010 [facility] [address] [id number] [address] [place] [address], [place] [id number] 08 Aug, 2010 [facility] [address] [id number] [address] [place] [address], [place] [id number] 07 Aug, 2010 [facility] [address] [id number] [address] [place] [address], [place] [address] Aug, [facility] [address] [id number] [address] [place] [address], [place] [address] Aug, [facility] [address] [id number] [address] [place] [address], [place] [address] Aug, [facility] [address] [id number] [address] [place] [address], [place] [address] Jul, [facility] [address] [id number] [address] [place] [address], [place] [address] Jul, [facility] [address] [id number] [address] [place] [address], [place] [address] Jul, [facility] [address] [id number] [address] [place] [address], [place] [address] Jul, [facility] [address] [id number] [address] [place] [address], [place] [address] Jul, [facility] [address] [id number] [address] [place] [id number] Jul, [facility] [address] [id number] [address] [place] [address], [place] [address] Jun, [facility] [address] [id number] [address] [place] [id number] Jun, [facility] [address] [id number] [address] [place] [id number] Jun, [facility] [address] [id number] [address] [place] [phone] Jun, [facility] [address] [id number] [address] [place] [id number] Apr, [facility] [address] [id number] [address] [place] [id number] Mar, [facility] [address] [id number] [address] [place] [id number] Feb, [facility] [address] [id number] [address] [place] [id number] January, [facility] [address] [id number] [address] [place] [id number] 15 Dec, 2009 [facility] [address] [id number] [address] [place] [id number] Nov, [facility] [address] [id number] [address] [place] [id number] Aug, [facility] [address] [id number] [address] [place] [phone] Aug, [facility] [address] [id number] [address] [place] [phone] Aug, [facility] [address] [id number] [address] [place] [phone] Jul, [facility] [address] [id number] [address] [place] [id number] Jul, [facility] [address] [id number] [address] [place] [phone] Jul, [facility] [address] [id number] [address] [place] [id number] 30 Jun, 2009 [facility] [address] [id number] [address] [place] [id number] 29 Jun, 2009 [facility] [address] [id number] [address] [place] [phone] Jun, [facility] [address] [id number] [address] [place] [id number] Jun, [facility] [address] [id number] [address] [place] [phone] Jun, [facility] [address] [id number] [address] [place] [phone] Jun, [facility] [address] [id number] [address] [place] [phone] Apr, [facility] [address] [facility] [id number] [address] [place] [id number] Apr, [facility] [address] [facility] [id number] [address] [place] [id number] Feb, [facility] [address] [facility] [id number] [address] [place] [phone] January, [facility] [address] [facility] [id number] [address] [place] [id number] Dec, IMMUNIZATIONS No Known Immunizations SOCIAL HISTORY [...] colonoscopy 2009 ([facility]), 2013 ([place] ) Surgical History heart cath: CAD w/ [...] inability to urinate 09/16/15 Hospitalization History [facility] r[facility] 2000's Hospitalization History hyperkalemia 10/2017 Hospitalization History fluid in lung
[2020-04-11 11:22] LABS: ALBUMIN 3.6 GM/DL (3.2-4.5); CHLORIDE 92 MMOL/L (98-107); POTASSIUM 3.2 MMOL/L (3.6-5.0); SODIUM 139 MMOL/L (135-145)
[2020-04-11 11:24] LABS: CALCIUM 8.7 MG/DL (8.5-10.1)
[2020-04-11 11:25] LABS: GLUCOSE 299 MG/DL (70-105); TOTAL PROTEIN 6.7 GM/DL (6.4-8.2)
[2020-04-11 11:26] LABS: BILIRUBIN,TOTAL 0.5 MG/DL (0.1-1.0); CARBON DIOXIDE 33 MMOL/L (21-32)
[2020-04-11 11:28] LABS: ALKALINE PHOSPHATASE 74 U/L (40-136); CREATININE SERUM 1.07 MG/DL (0.60-1.30); GFR ESTIMATED > 60
[2020-04-11 11:29] LABS: BUN/CREATININE RATIO 14
[2020-04-11 11:31] LABS: ALANINE AMINOTRANSFERASE 9 U/L (0-55)
--- NOTE | 2020-04-11 11:34 | Diagnostic Imaging Report ---
CHEST 1 VIEW, AP/PA ONLY Indication: Respiratory difficulty Comparison: 03/01/2020 Findings: Unchanged enlargement of cardiac silhouette. Left basilar hazy opacities persist and favor summation shadow from marked cardiomegaly and prominent mediastinal fat. No pneumothorax or pleural effusion. Impression: 1. Improved but persistent hazy opacities in left lung base are felt to represent a combination of cardiomegaly and atelectasis. Underlying pneumonia could be present in the appropriate setting. Dictated by: Dictated on workstation # [id number]
--- NOTE | 2020-04-11 11:42 | NUR ---
Dr Moreau reports speaking with pt's via phone.
[2020-04-11 11:44] LABS: ERYTHROCYTE SEDIMENTATION RATE 25 MM/HR (0-30)
[2020-04-11] MEDS ORDERED: HOLD METFORMIN - RECEIVED CONTRAST 20 ML VIAL IV SCH (12:30)
[2020-04-11] MEDS ORDERED: cloNIDine 0.1 MG (CATAPRES) TAB PO ONE (12:30)
[2020-04-11] MEDS ORDERED: CATHETER FLUSH 10 ML SYR IV PRN (12:30)
[2020-04-11] MEDS ORDERED: IOHEXOL 350 MG/ML 100 ML (OMNIPAQUE 350) VIAL IV ONE (12:30)
[2020-04-11] MEDS ORDERED: NS 100 ML (IVPB) BAG IV ONE (12:30)
--- NOTE | 2020-04-11 13:05 | Diagnostic Imaging Report ---
PROCEDURE: CT angiography Chest TECHNIQUE: After intravenous administration of contrast, thin section axial CT angiography of the chest was performed. 3D MIP reconstructions were made. All CT scans use one or more of the following dose optimizing techniques: automated exposure control, MA and/or KvP adjustment based on a patient size and exam type, or iterative reconstruction. INDICATION: Shortness of air COMPARISON: CT chest of 07/02/2019 FINDINGS: Vasculature: No pulmonary emboli. Dilated pulmonary trunk is unchanged and likely due to chronic pulmonary hypertension. No features of right ventricular strain. Thoracic aorta is normal in caliber. No aortic dissection or pseudoaneurysm. Heart and mediastinum: Visualized thyroid is normal. Scattered subcentimeter mediastinal lymph nodes are unchanged. The largest lymph node has a benign fatty hilum present in the right lower paratracheal region that is unchanged as well. Unchanged cardiomegaly without pericardial effusion. Pleura: Small bilateral pleural effusions. No pneumothorax. Lungs and airway: No endoluminal lesion in the trachea or central bronchi. Left basilar linear subsegmental atelectasis/scar. No consolidation or mass. Upper abdomen: Allowing for the phase of contrast, no acute abnormality in the upper abdomen is seen. Musculoskeletal: No concerning osseous lesion. IMPRESSION: 1. No pulmonary emboli. 2. Chronic dilation of the pulmonary trunk may represent long-standing pulmonary hypertension. 3. Small bilateral pleural effusions. No critical changes within the lungs to indicate pulmonary edema. Dictated by: Dictated on workstation # [id number]
--- NOTE | 2020-04-11 13:54 | NUR ---
Dr. Moreau speaking with by phone at this time.
[2020-04-11] MEDS ORDERED: CLON0.2T PO (14:00)
[2020-04-11 14:20] VITALS: BP 188/87
== END 2020-04-11 14:18 | disposition home or self-care (01) ==
LOC: EDUNIT# 10:22 → ER 10:23
DX: R53.81 Other malaise (principal); J90 Pleural effusion, not elsewhere classified; I10 Essential (primary) hypertension; C91.10 Chronic lymphocytic leukemia of B-cell type not having achieved remission; G47.33 Obstructive sleep apnea (adult) (pediatric); E11.9 Type 2 diabetes mellitus without complications; J45.909 Unspecified asthma, uncomplicated; I25.10 Atherosclerotic heart disease of native coronary artery without angina pectoris; I25.2 Old myocardial infarction; E78.00 Pure hypercholesterolemia, unspecified; K21.9 Gastro-esophageal reflux disease without esophagitis; K52.9 Noninfective gastroenteritis and colitis, unspecified; F41.9 Anxiety disorder, unspecified; F31.9 Bipolar disorder, unspecified; N39.0 Urinary tract infection, site not specified; G43.909 Migraine, unspecified, not intractable, without status migrainosus; Z99.89 Dependence on other enabling machines and devices; Z79.82 Long term (current) use of aspirin; Z79.51 Long term (current) use of inhaled steroids; Z79.4 Long term (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; Z85.72 Personal history of non-Hodgkin lymphomas; Z20.828 Contact with and (suspected) exposure to other viral communicable diseases; Z95.5 Presence of coronary angioplasty implant and graft; Z87.891 Personal history of nicotine dependence; Z86.73 Personal history of transient ischemic attack (TIA), and cerebral infarction without residual deficits; E66.01 Morbid (severe) obesity due to excess calories; Z68.43 Body mass index [BMI] 50.0-59.9, adult; Z80.42 Family history of malignant neoplasm of prostate; Z82.49 Family history of ischemic heart disease and other diseases of the circulatory system
CPT/HCPCS: 71045; 71275; 80053; 82805; 83880; 84145; 84484; 85025; 85379; 85652; 86141; 87040; 93005; 99285; U0002; 36415; 87635

== ENCOUNTER 2020-04-21 09:57 | Outpatient (RCR) | payer MEDICARE ==
[~2020-04-21 09:57] MED LIST changes: +ASPI-1238 PO; -ASPI-983 PO; +CLON0.2T PO; -OXYC-465 PO; +OXYC-556 PO
[2020-04-21 10:14] LABS: BASOPHILS # (AUTO) 0.1 10^3/uL (0.0-0.1); BASOPHILS % (AUTO) 1 % (0-10); EOSINOPHILS # (AUTO) 0.6 10^3/uL (0.0-0.3); EOSINOPHILS % (AUTO) 4 % (0-10); HEMATOCRIT 38 % (40-54); LYMPHOCYTES # (AUTO) 1.5 X 10^3 (1.0-4.0); LYMPHOCYTES % (AUTO) 12 % (12-44); MEAN CORPUSCULAR HEMOGLOBIN 28 PG (25-34); MEAN CORPUSCULAR HGB CONC 32 G/DL (32-36); MEAN CORPUSCULAR VOLUME 87 FL (80-99); MEAN PLATELET VOLUME 10.5 FL (7.4-10.4); MONOCYTES # (AUTO) 1.2 X 10^3 (0.0-1.0); MONOCYTES % (AUTO) 9 % (0-12); NEUTROPHILS # (AUTO) 9.8 X 10^3 (1.8-7.8); NEUTROPHILS % (AUTO) 74 % (42-75); PLATELET COUNT 409 10^3/uL (130-400); WHITE BLOOD COUNT 13.2 10^3/uL (4.3-11.0)
[2020-04-21 10:41] LABS: ALBUMIN 3.8 GM/DL (3.2-4.5); BILIRUBIN,TOTAL 0.2 MG/DL (0.1-1.0); CALCIUM 9.5 MG/DL (8.5-10.1); CREATININE SERUM 1.52 MG/DL (0.60-1.30); POTASSIUM 3.3 MMOL/L (3.6-5.0); TOTAL PROTEIN 7.7 GM/DL (6.4-8.2); URIC ACID 6.3 MG/DL (2.6-7.2)
== END 2020-06-11 09:54 | disposition home or self-care (01) ==
LOC: ONC 09:57
PROVIDERS: ATTEND Internal Medicine Hematology & Oncology
DX: C91.10 Chronic lymphocytic leukemia of B-cell type not having achieved remission (principal); I25.10 Atherosclerotic heart disease of native coronary artery without angina pectoris; E87.6 Hypokalemia; I10 Essential (primary) hypertension; E78.5 Hyperlipidemia, unspecified; E11.9 Type 2 diabetes mellitus without complications; J44.9 Chronic obstructive pulmonary disease, unspecified; E66.01 Morbid (severe) obesity due to excess calories; G47.33 Obstructive sleep apnea (adult) (pediatric); I65.23 Occlusion and stenosis of bilateral carotid arteries; L97.909 Non-pressure chronic ulcer of unspecified part of unspecified lower leg with unspecified severity; R59.0 Localized enlarged lymph nodes; E61.1 Iron deficiency; E79.0 Hyperuricemia without signs of inflammatory arthritis and tophaceous disease; F03.90 Unspecified dementia, unspecified severity, without behavioral disturbance, psychotic disturbance, mood disturbance, and anxiety; R61 Generalized hyperhidrosis; Z98.890 Other specified postprocedural states; Z79.899 Other long term (current) drug therapy; Z68.43 Body mass index [BMI] 50.0-59.9, adult; Z95.5 Presence of coronary angioplasty implant and graft
CPT/HCPCS: 80053; 83615; 84550; 85025; G0463; 36591

== ENCOUNTER 2020-06-11 09:57 | Outpatient (RCR) | payer MEDICARE | END 2020-06-19 08:01 | disposition home or self-care (01) | LOC: ONC 09:57 | PROVIDERS: ATTEND Internal Medicine Hematology & Oncology | DX: Z45.2 Encounter for adjustment and management of vascular access device (principal); C91.10 Chronic lymphocytic leukemia of B-cell type not having achieved remission; I25.10 Atherosclerotic heart disease of native coronary artery without angina pectoris; E87.6 Hypokalemia; I10 Essential (primary) hypertension; E78.5 Hyperlipidemia, unspecified; E11.9 Type 2 diabetes mellitus without complications; J44.9 Chronic obstructive pulmonary disease, unspecified; E66.01 Morbid (severe) obesity due to excess calories; G47.33 Obstructive sleep apnea (adult) (pediatric); I65.23 Occlusion and stenosis of bilateral carotid arteries; L97.909 Non-pressure chronic ulcer of unspecified part of unspecified lower leg with unspecified severity; R59.0 Localized enlarged lymph nodes; E61.1 Iron deficiency; E79.0 Hyperuricemia without signs of inflammatory arthritis and tophaceous disease; F03.90 Unspecified dementia, unspecified severity, without behavioral disturbance, psychotic disturbance, mood disturbance, and anxiety; R61 Generalized hyperhidrosis; Z98.890 Other specified postprocedural states; Z79.899 Other long term (current) drug therapy; Z68.43 Body mass index [BMI] 50.0-59.9, adult; Z95.5 Presence of coronary angioplasty implant and graft | CPT/HCPCS: 96523 ==

== ENCOUNTER 2020-09-09 10:53 | Outpatient (RCR) | payer MEDICARE ==
[2020-07-15 10:43] LABS: BASOPHILS # (AUTO) 0.1 10^3/uL (0.0-0.1); BASOPHILS % (AUTO) 1 % (0-10); EOSINOPHILS # (AUTO) 0.3 10^3/uL (0.0-0.3); EOSINOPHILS % (AUTO) 3 % (0-10); HEMATOCRIT 37 % (40-54); HEMOGLOBIN 11.5 g/dL (13.3-17.7); LYMPHOCYTES # (AUTO) 1.9 10^3/uL (1.0-4.0); LYMPHOCYTES % (AUTO) 16 % (12-44); MEAN CORPUSCULAR HEMOGLOBIN 28 pg (25-34); MEAN CORPUSCULAR HGB CONC 31 g/dL (32-36); MEAN CORPUSCULAR VOLUME 88 fL (80-99); MEAN PLATELET VOLUME 11.7 fL (9.0-12.2); MONOCYTES # (AUTO) 1.1 10^3/uL (0.0-1.0); MONOCYTES % (AUTO) 9 % (0-12); NEUTROPHILS # (AUTO) 8.5 10^3/uL (1.8-7.8); NEUTROPHILS % (AUTO) 71 % (42-75); PLATELET COUNT 197 10^3/uL (130-400)
[2020-07-15 11:01] LABS: ALANINE AMINOTRANSFERASE 14 U/L (0-55); ALBUMIN 3.6 GM/DL (3.2-4.5); ALKALINE PHOSPHATASE 76 U/L (40-136); BILIRUBIN,TOTAL 0.5 MG/DL (0.1-1.0); BUN/CREATININE RATIO 23; CALCIUM 8.4 MG/DL (8.5-10.1); CARBON DIOXIDE 38 MMOL/L (21-32); CHLORIDE 87 MMOL/L (98-107); CREATININE SERUM 1.06 MG/DL (0.60-1.30); GFR ESTIMATED > 60; GLUCOSE 155 MG/DL (70-105); POTASSIUM 2.6 MMOL/L (3.6-5.0); SODIUM 140 MMOL/L (135-145); TOTAL PROTEIN 6.8 GM/DL (6.4-8.2); URIC ACID 9.6 MG/DL (2.6-7.2)
[2020-07-15 13:02] LABS: MAGNESIUM 1.9 MG/DL (1.6-2.4)
[~2020-09-09 10:53] MED LIST changes: +CLN.1T PO; +CLN.2T PO; -CLON0.1T PO; -CLON0.2T PO; -MONT10TA26 PO; +MONT10TA97 PO
== END 2020-10-02 08:16 | disposition home or self-care (01) ==
LOC: ONC 10:53
PROVIDERS: ATTEND Internal Medicine Hematology & Oncology
DX: C91.10 Chronic lymphocytic leukemia of B-cell type not having achieved remission (principal); E87.6 Hypokalemia; D50.9 Iron deficiency anemia, unspecified; I25.10 Atherosclerotic heart disease of native coronary artery without angina pectoris; I63.9 Cerebral infarction, unspecified; I10 Essential (primary) hypertension; E78.5 Hyperlipidemia, unspecified; E11.9 Type 2 diabetes mellitus without complications; E79.0 Hyperuricemia without signs of inflammatory arthritis and tophaceous disease; E66.01 Morbid (severe) obesity due to excess calories; J44.9 Chronic obstructive pulmonary disease, unspecified; F03.90 Unspecified dementia, unspecified severity, without behavioral disturbance, psychotic disturbance, mood disturbance, and anxiety; Z68.43 Body mass index [BMI] 50.0-59.9, adult; Z79.899 Other long term (current) drug therapy
CPT/HCPCS: 80053; 83615; 83735; 84550; 85025; G0463; 36591; 96523

== ENCOUNTER → 2021-01-05 | Outpatient (RCR) | payer MEDICARE ==
[2020-10-07 13:07] LABS: BASOPHILS % (AUTO) 1 % (0-10); EOSINOPHILS # (AUTO) 0.3 10^3/uL (0.0-0.3); EOSINOPHILS % (AUTO) 4 % (0-10); HEMATOCRIT 39 % (40-54); HEMOGLOBIN 12.3 g/dL (13.3-17.7); LYMPHOCYTES # (AUTO) 1.1 10^3/uL (1.0-4.0); LYMPHOCYTES % (AUTO) 17 % (12-44); MEAN CORPUSCULAR HEMOGLOBIN 27 pg (25-34); MEAN CORPUSCULAR HGB CONC 31 g/dL (32-36); MEAN CORPUSCULAR VOLUME 87 fL (80-99); MEAN PLATELET VOLUME 10.6 fL (9.0-12.2); MONOCYTES # (AUTO) 0.7 10^3/uL (0.0-1.0); MONOCYTES % (AUTO) 11 % (0-12); NEUTROPHILS # (AUTO) 4.4 10^3/uL (1.8-7.8); NEUTROPHILS % (AUTO) 67 % (42-75); PLATELET COUNT 306 10^3/uL (130-400); WHITE BLOOD COUNT 6.6 10^3/uL (4.3-11.0)
[2020-10-07 13:25] LABS: ALBUMIN 3.7 GM/DL (3.2-4.5); BILIRUBIN,TOTAL 0.3 MG/DL (0.1-1.0); CALCIUM 8.6 MG/DL (8.5-10.1); CREATININE SERUM 1.57 MG/DL (0.60-1.30); POTASSIUM 3.2 MMOL/L (3.6-5.0); TOTAL PROTEIN 7.2 GM/DL (6.4-8.2)
[~2021-01-05] MED LIST changes: -LISI10TA2 PO; +LISI10TA25 PO; +MONT10TA32 PO; -MONT10TA97 PO; +QUET50TA22 PO; -QUET50TA55 PO
[2021-01-05 10:33] LABS: BASOPHILS % (AUTO) 1 % (0-10); EOSINOPHILS # (AUTO) 0.6 10^3/uL (0.0-0.3); EOSINOPHILS % (AUTO) 7 % (0-10); HEMATOCRIT 37 % (40-54); HEMOGLOBIN 11.7 g/dL (13.3-17.7); LYMPHOCYTES % (AUTO) 12 % (12-44); MEAN CORPUSCULAR HEMOGLOBIN 28 pg (25-34); MEAN CORPUSCULAR HGB CONC 32 g/dL (32-36); MEAN CORPUSCULAR VOLUME 88 fL (80-99); MEAN PLATELET VOLUME 10.1 fL (9.0-12.2); MONOCYTES # (AUTO) 0.7 10^3/uL (0.0-1.0); MONOCYTES % (AUTO) 9 % (0-12); NEUTROPHILS # (AUTO) 5.9 10^3/uL (1.8-7.8); NEUTROPHILS % (AUTO) 72 % (42-75); PLATELET COUNT 292 10^3/uL (130-400); WHITE BLOOD COUNT 8.2 10^3/uL (4.3-11.0)
[2021-01-05 10:53] LABS: ALBUMIN 3.6 GM/DL (3.2-4.5); BILIRUBIN,TOTAL 0.3 MG/DL (0.1-1.0); CREATININE SERUM 1.67 MG/DL (0.60-1.30); POTASSIUM 3.2 MMOL/L (3.6-5.0); TOTAL PROTEIN 7.2 GM/DL (6.4-8.2)
== END | disposition home or self-care (01) ==
LOC: ONC 10-07 12:51
PROVIDERS: ATTEND Internal Medicine Hematology & Oncology
DX: C91.10 Chronic lymphocytic leukemia of B-cell type not having achieved remission (principal); E87.6 Hypokalemia; D50.9 Iron deficiency anemia, unspecified; I25.10 Atherosclerotic heart disease of native coronary artery without angina pectoris; I63.9 Cerebral infarction, unspecified; I10 Essential (primary) hypertension; E78.5 Hyperlipidemia, unspecified; E11.9 Type 2 diabetes mellitus without complications; E79.0 Hyperuricemia without signs of inflammatory arthritis and tophaceous disease; E66.01 Morbid (severe) obesity due to excess calories; J44.9 Chronic obstructive pulmonary disease, unspecified; F03.90 Unspecified dementia, unspecified severity, without behavioral disturbance, psychotic disturbance, mood disturbance, and anxiety; Z68.43 Body mass index [BMI] 50.0-59.9, adult; Z79.899 Other long term (current) drug therapy; Z98.890 Other specified postprocedural states
CPT/HCPCS: 80053; 83615; 85025; G0463; 36591; 84550; 96523

== ENCOUNTER 2021-02-25 07:52 | Outpatient (CLI) | payer MEDICARE ==
[2021-02-25] VITALS (9 sets, daily range): BP systolic 156–190; BP diastolic 85–136
[~2021-02-25] VITALS: Ht 172.7 cm; Wt 166.8 kg
[~2021-02-25 07:52] MED LIST changes: +DICL100G13 TOP; -DICL100G31 TOP; +MIRT-68 PO; -MIRT15TA6 PO
[2021-02-25 08:44] LABS: BASOPHILS # (AUTO) 0.1 10^3/uL (0.0-0.1); BASOPHILS % (AUTO) 1 % (0-10); EOSINOPHILS # (AUTO) 0.4 10^3/uL (0.0-0.3); EOSINOPHILS % (AUTO) 5 % (0-10); HEMATOCRIT 38 % (40-54); HEMOGLOBIN 12.1 g/dL (13.3-17.7); LYMPHOCYTES # (AUTO) 1.8 10^3/uL (1.0-4.0); LYMPHOCYTES % (AUTO) 24 % (12-44); MEAN CORPUSCULAR HEMOGLOBIN 27 pg (25-34); MEAN CORPUSCULAR HGB CONC 32 g/dL (32-36); MEAN CORPUSCULAR VOLUME 86 fL (80-99); MEAN PLATELET VOLUME 11.2 fL (9.0-12.2); MONOCYTES # (AUTO) 0.8 10^3/uL (0.0-1.0); MONOCYTES % (AUTO) 11 % (0-12); NEUTROPHILS # (AUTO) 4.2 10^3/uL (1.8-7.8); NEUTROPHILS % (AUTO) 58 % (42-75); PLATELET COUNT 264 10^3/uL (130-400); WHITE BLOOD COUNT 7.3 10^3/uL (4.3-11.0)
[2021-02-25 08:48] LABS: ABSOLUTE RETIC # 100 10e9/uL (24-90); RETICULOCYTE % 2.22 % (0.50-2.40)
[2021-02-25] MEDS ORDERED: NS IV 1000 ML 1,000 ML IV STA (08:56)
[2021-02-25] MEDS ORDERED: MIDAZOLAM 2 MG/2 ML (VERSED) VIAL IVP ONE (09:00)
[2021-02-25] MEDS ORDERED: fentaNYL INJ 100 MCG/2 ML AMP IVP ONE (09:00)
[2021-02-25] MEDS ORDERED: FLUO40CA PO (09:05)
[2021-02-25] MEDS ORDERED: CLOP75TA28 PO (09:05)
[2021-02-25] MEDS ORDERED: CLN.2T PO (09:05)
[2021-02-25] MEDS ORDERED: PANT40TA52 PO (09:05)
[2021-02-25] MEDS ORDERED: DIVA125T32 PO ×2 (09:05→09:06)
[2021-02-25] MEDS ORDERED: MECL-149 PO (09:05)
[2021-02-25] MEDS ORDERED: NORT50CA PO (09:05)
[2021-02-25] MEDS ORDERED: LOSA50TA63 PO (09:05)
[2021-02-25] MEDS ORDERED: fentaNYL INJ 100 MCG/2 ML AMP ONE (09:06)
[2021-02-25] MEDS ORDERED: MIDAZOLAM 2 MG/2 ML (VERSED) VIAL ONE (09:06)
[2021-02-25] MEDS ORDERED: NS IV 1000 ML 1,000 ML ONE (09:07)
[2021-02-25 09:10] LABS: PROTHROMBIN TIME PATIENT 13.8 SEC (12.2-14.7)
[2021-02-25 09:15] LABS: BAND NEUTROPHILS 0 %; NEUTROPHILS % (MANUAL) 66 %
[2021-02-25 09:16] LABS: ANISOCYTOSIS SLIGHT; BASOPHILS % (MANUAL) 0 %; ELLIPT/OVALOCYTES SLIGHT; EOSINOPHILS % (MANUAL) 6 %; LYMPHOCYTES % (MANUAL) 23 %; MONOCYTES % (MANUAL) 5 %
[2021-02-25] MEDS ORDERED: LIDOCAINE 1% INJ 20 ML 20 ML VIAL ONE (09:38)
[2021-02-25] MEDS ORDERED: HOLD METFORMIN - RECEIVED CONTRAST 20 ML VIAL IV SCH (09:45)
[2021-02-25] MEDS ORDERED: NS 100 ML (IVPB) BAG IV ONE (09:45)
[2021-02-25] MEDS ORDERED: BARIUM SUSPENSION 2.1% (VANILLA SILQ) 450 ML PO ONE (09:45)
[2021-02-25] MEDS ORDERED: IOHEXOL 350 MG/ML 100 ML (OMNIPAQUE 350) VIAL IV ONE (09:45)
[2021-02-25] MEDS ORDERED: CATHETER FLUSH 10 ML SYR IV PRN (09:45)
--- NOTE | 2021-02-25 10:53 | Pre-Op Note & Conscious Sedat ---
Pre-Operative Progress Note H&P Reviewed The H&P was reviewed, patient examined and no changes noted. Date H&P Reviewed: Feb 25, 2021 Time H&P Reviewed: 09:00 Pre-Op Diagnosis: CLL Conscious Sedation Pre-Proced Time 09:00 ASA Score 2 For ASA 3 and 4: Consider anesthesia and medical clearance. Also, for patients with a history of failed moderate sedation consider anesthesia. Airway Lungs Heart ASA score ASA 1: a normal healthy patient ASA 2: a patient with a mild systemic disease (mid diabetes, controlled hypertension, obesity ASA 3: a patient with a severe systemic disease that limits activity (angina, COPD, prior Myocardial infarction) ASA 4: a patient with an incapacitating disease that is a constant threat to life (CHF, renal failure) ASA 5: a moribund patient not expected to survive 24 hrs. (ruptured aneurysm) ASA 6: a declared brain- patient whose organs are being harvested. For emergent operations, add the letter E after the classification Mallampati Classification Grade 2 Sedation Plan Analgesia, Amnesia, Plan communicated to team members, Discussed options with patient/fam, Discussed risks with patient/fam The patient is an appropriate candidate to undergo the planned procedure, sedation, and anesthesia. The patient immediately re-assessed prior to indication. SEPIDEH RAM MD Feb 25, 2021 10:53
[2021-02-25] MEDS ORDERED: HYDROcodone/APAP 5 MG/325 MG (LORTAB) TAB PO PRN (11:00)
--- NOTE | 2021-02-25 11:00 | Diagnostic Imaging Report ---
PROCEDURE: CT chest with contrast, CT abdomen and pelvis with and without contrast. TECHNIQUE: Pre and post intravenous contrast axial imaging of the abdomen and pelvis and post contrast axial imaging of the chest were performed. Auto Exposure Controls were utilized during the CT exam to meet ALARA standards for radiation dose reduction. INDICATION: Chronic lymphocytic leukemia, follow-up. Comparison is made with prior CT chest from 04/11/[address] abdomen and pelvis from 07/02/2019. CT CHEST: No axillary lymphadenopathy is identified. A right paratracheal lymph node measures approximately 20 mm compared with 18 mm on prior. Several smaller mediastinal lymph nodes are again noted and are similar to prior study. No hilar lymphadenopathy is seen. The heart is enlarged. There is no pericardial fluid. There is trace right pleural effusion. Pleural effusions have significantly improved since the prior CT chest from March 2020. No pulmonary infiltrates, nodules or masses are detected. IMPRESSION: Stable mediastinal lymphadenopathy since 04/11/2020. There has been significant reduction in pleural effusion since the prior exam. CT ABDOMEN AND PELVIS: No discrete liver mass is detected. The gallbladder is unremarkable. There is no biliary ductal dilatation. Pancreas and spleen are unremarkable. No adrenal mass is detected. Kidneys are unremarkable. Aorta is nonaneurysmal. No central retroperitoneal or mesenteric lymphadenopathy is seen. Small and large bowel loops are normal in caliber. There is no free fluid or fluid collection. The bladder and prostate are unremarkable. No pelvic lymphadenopathy is seen. Bony structures are nonacute. IMPRESSION: Stable CT abdomen and pelvis since exam from 07/02/2019. No lymphadenopathy is detected. Dictated by: Dictated on workstation # [id number]
--- NOTE | 2021-02-25 11:12 | Diagnostic Imaging Report ---
Indication: Chronic lymphocytic leukemia. Patient presents for CT-guided bone marrow biopsy. I patient brought to the CT suite placed on table in the prone position. Axial imaging through the pelvis was performed evaluate appropriate entry site. The procedure was performed utilizing conscious sedation with radiology nursing and constipation monitoring. Patient was given a total of 2 mg of Versed and 100 mg of fentanyl intravenously. Total procedure time was 21 minutes. Skin of the low back was prepped and draped in usual sterile fashion. Small amount of 1% lidocaine was utilized for local anesthesia. 6 inch bone marrow biopsy needle was advanced and placed with its tip along the posterior cortex. The needle was advanced through the cortex utilized the bone marrow drill. 2 bone marrow aspirates were performed. Next, drill was utilized to obtain a bone marrow core. Needle was withdrawn and hemostasis was obtained using manual compression. Patient tolerated procedure well and left the department in stable condition. IMPRESSION: Successful CT-guided bone marrow aspiration and biopsy utilizing conscious sedation. Dictated by: Dictated on workstation # [id number]
== END 2021-02-25 12:00 | disposition home or self-care (01) ==
LOC: RAD 07:52
PROVIDERS: ATTEND Internal Medicine Hematology & Oncology
DX: C91.10 Chronic lymphocytic leukemia of B-cell type not having achieved remission (principal)
CPT/HCPCS: 36415; 38222; 71260; 74178; 77012; 85007; 85027; 85045; 85055; 85610; 85730; 88184; 88185; 88305; 88311; 88313; 88341; 88342

== ENCOUNTER 2021-03-31 08:51 | Outpatient (RCR) | payer MEDICARE ==
[2021-02-02 13:26] LABS: BASOPHILS # (AUTO) 0.1 10^3/uL (0.0-0.1); BASOPHILS % (AUTO) 1 % (0-10); EOSINOPHILS # (AUTO) 0.3 10^3/uL (0.0-0.3); EOSINOPHILS % (AUTO) 4 % (0-10); HEMATOCRIT 42 % (40-54); HEMOGLOBIN 13.1 g/dL (13.3-17.7); LYMPHOCYTES # (AUTO) 1.5 10^3/uL (1.0-4.0); LYMPHOCYTES % (AUTO) 20 % (12-44); MEAN CORPUSCULAR HEMOGLOBIN 26 pg (25-34); MEAN CORPUSCULAR HGB CONC 31 g/dL (32-36); MEAN CORPUSCULAR VOLUME 85 fL (80-99); MEAN PLATELET VOLUME 10.9 fL (9.0-12.2); MONOCYTES % (AUTO) 13 % (0-12); NEUTROPHILS # (AUTO) 4.7 10^3/uL (1.8-7.8); NEUTROPHILS % (AUTO) 62 % (42-75); PLATELET COUNT 321 10^3/uL (130-400); WHITE BLOOD COUNT 7.6 10^3/uL (4.3-11.0)
[2021-02-02 13:44] LABS: ALBUMIN 3.8 GM/DL (3.2-4.5); BILIRUBIN,TOTAL 0.2 MG/DL (0.1-1.0); CALCIUM 9.1 MG/DL (8.5-10.1); CREATININE SERUM 1.3 MG/DL (0.60-1.30); POTASSIUM 2.9 MMOL/L (3.6-5.0); TOTAL PROTEIN 7.5 GM/DL (6.4-8.2)
[~2021-03-31 08:51] MED LIST changes: +DIVA125T32 PO; +FLUO40CA PO; +MECL-149 PO; +NORT50CA PO; +PANT40TA52 PO
== END 2021-05-03 | disposition home or self-care (01) ==
LOC: ONC 08:51
PROVIDERS: ATTEND Internal Medicine Hematology & Oncology
DX: C91.10 Chronic lymphocytic leukemia of B-cell type not having achieved remission (principal); E87.6 Hypokalemia; D50.9 Iron deficiency anemia, unspecified; I25.10 Atherosclerotic heart disease of native coronary artery without angina pectoris; J44.9 Chronic obstructive pulmonary disease, unspecified; E78.5 Hyperlipidemia, unspecified; I12.9 Hypertensive chronic kidney disease with stage 1 through stage 4 chronic kidney disease, or unspecified chronic kidney disease; E11.22 Type 2 diabetes mellitus with diabetic chronic kidney disease; N18.30 Chronic kidney disease, stage 3 unspecified; E79.0 Hyperuricemia without signs of inflammatory arthritis and tophaceous disease; E66.01 Morbid (severe) obesity due to excess calories; Z68.43 Body mass index [BMI] 50.0-59.9, adult; Z79.899 Other long term (current) drug therapy; Z98.890 Other specified postprocedural states; Z87.891 Personal history of nicotine dependence; Z79.4 Long term (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
CPT/HCPCS: 80053; 85025; G0463; 36591; 99213

== ENCOUNTER 2021-05-11 11:00 | Day surgery (SDC) | payer MEDICARE ==
[~2021-05-11] VITALS: Ht 172 cm; Wt 156.3 kg
[2021-05-11 09:24] VITALS: BP 171/84
[2021-05-11 09:50] LABS: HEMATOCRIT 39 % (40-54); HEMOGLOBIN 12.4 g/dL (13.3-17.7); MEAN CORPUSCULAR HEMOGLOBIN 29 pg (25-34); MEAN CORPUSCULAR HGB CONC 32 g/dL (32-36); MEAN CORPUSCULAR VOLUME 92 fL (80-99); MEAN PLATELET VOLUME 10.4 fL (9.0-12.2); PLATELET COUNT 293 10^3/uL (130-400); WHITE BLOOD COUNT 9.5 10^3/uL (4.3-11.0)
[2021-05-11 09:58] LABS: POTASSIUM 3.5 MMOL/L (3.6-5.0)
[2021-05-11 09:59] LABS: ALBUMIN 3.9 GM/DL (3.2-4.5); INR 1.5 (0.8-1.4); PROTHROMBIN TIME PATIENT 18.4 SEC (12.2-14.7)
[2021-05-11 10:00] LABS: CALCIUM 9.2 MG/DL (8.5-10.1)
[2021-05-11 10:01] LABS: TOTAL PROTEIN 7.3 GM/DL (6.4-8.2)
[2021-05-11 10:03] LABS: BILIRUBIN,TOTAL 0.3 MG/DL (0.1-1.0)
[2021-05-11 10:05] LABS: CREATININE SERUM 1.21 MG/DL (0.60-1.30)
[~2021-05-11 11:00] MED LIST changes: +EMPA25TA PO; +HEParin (CATH LAB) 2,000 ML IV ONE; +HYDR100T27 PO; +HYDR50CA3 PO; +ISOS60TA63 PO; +LIDOCAINE 1% INJ 20 ML 20 ML VIAL ONE; +NS IV 1000 ML 1,000 ML IV SCH; +NS IV 1000 ML 1,000 ML ONE; +OXYC1TAB11 PO; +RT-ALBUINH IH; +SACU1TAB7 PO; +TORS20TA3 PO; +UMEC1BLS IH; +WARF-48 PO
[2021-05-11] MEDS ORDERED: HEParin 1000 UNIT/ML (10ML VIAL) FOR BOLUS ONE (11:15)
[2021-05-11] MEDS ORDERED: EPTIFIBATIDE BOLUS 20 ML IV ONE (11:17)
[2021-05-11] MEDS ORDERED: morphine INJ 4 MG/ML 1 ML (VIAL/SYRINGE) ONE (11:32)
[2021-05-11] MEDS ORDERED: ASPIRIN 81 MG CHEW (CHILDREN'S ASA) ONE (12:12)
[2021-05-11] MEDS ORDERED: CLOPIDOGREL 300 MG (PLAVIX) TABLET PO ONE (12:12)
[2021-05-11 12:15] VITALS: BP 153/68
[2021-05-11] MEDS ORDERED: PATIENT MAY USE OWN MEDS, ALL PO SCH (12:30)
[2021-05-11] MEDS ORDERED: oxyCODONE/APAP 5/325MG (PERCOCET 5) TABLET PO PRN (12:30)
[2021-05-11] MEDS ORDERED: RT-ALBUTEROL SULF 2.5 MG/3 ML PRE-MIX VIAL IH PRN (12:30)
--- NOTE | 2021-05-11 12:39 | Cardiac Procedure Note-CS/ASA ---
Pre-Procedure Note Pre-Op Procedure Note H&P Reviewed The H&P was reviewed, patient examined and no changes noted. Date H&P Reviewed: May 11, 2021 Time H&P Reviewed: 11:00 Conscious Sedation Pre-Proced Time 11:00 ASA Score 3, 4 For ASA 3 and 4: Consider anesthesia and medical clearance. Also, for patients with a history of failed moderate sedation consider anesthesia. Airway Lungs Heart ASA score ASA 1: a normal healthy patient ASA 2: a patient with a mild systemic disease (mid diabetes, controlled hypertension, obesity ASA 3: a patient with a severe systemic disease that limits activity (angina, COPD, prior Myocardial infarction) ASA 4: a patient with an incapacitating disease that is a constant threat to life (CHF, renal failure) ASA 5: a moribund patient not expected to survive 24 hrs. (ruptured aneurysm) ASA 6: a declared brain- patient whose organs are being harvested. For emergent operations, add the letter E after the classification Mallampati Classification Grade 3 Sedation Plan Analgesia, Amnesia, Plan communicated to team members, Discussed options with patient/fam, Discussed risks with patient/fam The patient is an appropriate candidate to undergo the planned procedure, sedation, and anesthesia. The patient immediately re-assessed prior to indication. ESPERANZA STANFORD MD FACP FAC CCDS May 11, 2021 12:39
[2021-05-11] MEDS: NS IV 1000 ML 1,000 ML IV SCH ×2 (13:07→22:43)
[2021-05-11] MEDS ORDERED: PATIENT MAY USE OWN MEDS, ALL MC SCH (13:30)
--- NOTE | 2021-05-11 13:34 | CARDIAC CATHETERIZATION ---
DATE OF SERVICE: 05/11/2021 CARDIAC CATHETERIZATION AND CORONARY INTERVENTION REPORT The patient is a 56-year-old gentleman who was hospitalized with cardiorespiratory arrest and aspiration pneumonia in February 2021 at [facility] in [place]. He, apparently, did not have cardiac catheterization at [facility] at that time. Currently, he is reporting exertional shortness of breath, given the symptoms and a history of coronary artery disease and recent cardiac arrest, cardiac catheterization was recommended. Informed consent was obtained. DESCRIPTION OF PROCEDURE: He was brought to the cardiac catheterization laboratory in a fasting state. Right groin was prepared and draped in the usual sterile fashion. Lidocaine 1% was used for local anesthesia. Modified Seldinger technique was used to advance a 5-Malaysian sheath in the right femoral artery. A 5-Malaysian JL4 catheter was used for left coronary angiography. For right coronary angiography, we tried multiple catheters, but were not able to engage the right coronary artery. Previously, he is known to have a small, nondominant right coronary artery. We used a 5-Malaysian pigtail catheter for left heart catheterization and left ventricular angiography. We used a 5-Malaysian pigtail catheter to carry out left ventricular angiography. We pulled the pigtail into the aortic root and aortic root angiography was performed. We were still not able to identify the right coronary artery. Subsequently, percutaneous intervention was carried out of the left circumflex artery and the left anterior descending artery as described below. Following completion of the interventional procedure, angiography of the right femoral artery was carried out through the sheath and Mynx was used to achieve hemostasis. HEMODYNAMICS: Left ventricular end-diastolic pressure following coronary angiography was 17 mmHg. There is no significant pressure gradient on pullback across the aortic valve. LEFT VENTRICULAR ANGIOGRAPHY: Left ventricular angiography showed well preserved global left ventricular systolic function with ejection fraction of 50 to 55%. There does not appear to be distinct regional wall motion abnormality. CORONARY ANGIOGRAPHY: Left main coronary artery is free of significant disease. Left anterior descending artery appears to have a patent stent in its proximal portion. The distal left anterior descending artery was exhibiting 70% to 80% stenosis. The left circumflex artery is dominant. Following the origin of a large first obtuse marginal, there was 80% stenosis of the left circumflex. We could not identify the right coronary artery, despite multiple attempts and despite angiography of the aortic root. The right coronary artery is previously known to be a small nondominant vessel and may now be occluded. AORTIC ROOT ANGIOGRAPHY No enlargement of the root. No aortic regurgitation. Aortic leaflets show good leaflet excursion. Left cornary system visualized. No right coronary artery seen. PERCUTANEOUS INTERVENTION TO THE LEFT CIRCUMFLEX ARTERY: We exchanged the sheath over a wire for a 23 cm 6-Malaysian sheath. We gave 7000 units of intravenous heparin and a double bolus of Integrilin was given during the interventional procedure. We used a 6-Malaysian JR4 guide catheter to engage the left coronary artery and advanced a BMW wire across the lesion in the mid left circumflex artery and carried out balloon angioplasty with a 3.0 x 20 mm balloon that reduced the 80% stenosis to less than 20% residual. Flow throughout the vessel was normal. He tolerated the procedure well. PERCUTANEOUS INTERVENTION TO THE LEFT ANTERIOR DESCENDING ARTERY: Following completion of the intervention to the left circumflex, we carried out percutaneous intervention to the distal left anterior descending. The distal left anterior descending was exhibiting 70% to 80% stenosis. We first used a JR4 guide catheter and a BMW wire to cross the lesion, but the guide was not providing adequate support. We removed the wire and the guide and then used a 6-Malaysian EBU 4 guide catheter to engage the left coronary artery and used a BMW wire to cross the lesion in the distal left anterior descending and we were then able to advance Sarah 2.25 x 12 mm stent to the lesion and this was deployed at 18 atmospheres to achieve a final stent lumen size of 2.58. The patient tolerated the procedure well. Following stent deployment, there is no significant residual stenosis and flow throughout the vessel is normal. CONCLUSIONS: 1. Coronary artery disease consisting of 80% mid vessel stenosis of the left circumflex artery, just following the origin of a large obtuse marginal branch. Successful balloon angioplasty resulted in reduction of the stenosis to less than 20%. The left anterior descending has a patent stent in its proximal portion and was exhibiting 70% to 80% distal stenosis, which was successfully stented with Sarah 2.25 x 12 mm stent that was deployed at 16 atmospheres with a final stent lumen size of 2.58 mm. The right coronary artery is previously known to be small and nondominant and could not be visualized on this study and may be occluded. The left circumflex artery is large and dominant. 3. Well preserved global left ventricular systolic function with ejection fraction approximately 50% to 55%. 4. Left ventricular end-diastolic pressure 17 mmHg. DISCUSSION AND RECOMMENDATIONS: He is being hospitalized for observation following the intervention today. Dual antiplatelet therapy has been initiated. Further recommendations will be based on hospital course. Job ID: [id number] DocumentID: [id number] Dictated Date: 05/11/2021 13:11:12 Manager Education Date: 05/11/2021 13:34:04 Dictated By: ESPERANZA STANFORD MD, MA, FACP, FACC, MTDD
[2021-05-11] MEDS ORDERED: CEPH500T PO (13:38)
[2021-05-11] MEDS ORDERED: hydrOXYzine (VISTARIL/ATARAX) 25 MG capsule/tablet PO PRN (14:45)
[2021-05-11] MEDS: GABAPENTIN 300 MG (NEURONTIN) CAP PO SCH ×2 (14:51→20:13)
[2021-05-11 16:00] VITALS: BP 137/68
[2021-05-11] MEDS: inSUlin ASPART (NovoLOG) 1 UNIT/0.01 ML (CHARGE PER UNIT) SC SCH ×2 (16:36→20:25)
[2021-05-11] MEDS ORDERED: warFARin 7.5 MG (COUMADIN) TAB PO SCH (18:00)
[2021-05-11 20:00] VITALS: BP 137/58
[2021-05-11] MEDS: RT-ALBUTEROL HFA 8.5 GM INHALER IH SCH (20:07)
[2021-05-11] MEDS: DIVALPROX SPRINKLE 125 MG (DEPAKOTE) CAP PO SCH (20:13)
[2021-05-11] MEDS: hydrALAZINE (APRESOLINE) 25 MG TAB PO SCH (20:13)
[2021-05-11] MEDS: SACUBITRIL/VALSARTAN 24/26 MG (ENTRESTO) TABLET PO SCH (20:13)
[2021-05-11] MEDS ORDERED: INSULIN GLARGINE HUM REC ANLOG SC SCH (21:00)
[2021-05-11] MEDS ORDERED: FLUTICASONE NASAL SPRAY (FLONASE) 16 GM BTL NS SCH (21:00)
[2021-05-11] MEDS ORDERED: MIRTAZAPINE 15 MG (REMERON) TAB PO SCH (21:00)
[2021-05-11] MEDS ORDERED: NON-FORMULARY MEDICATION 1 EA EA (Liraglutide (Victoza 3-Pak) 1.8 MG) INJ SCH (21:00)
[2021-05-12] VITALS: BP 134/62
[2021-05-12] MEDS: RT-ALBUTEROL HFA 8.5 GM INHALER IH SCH ×2 (02:10→08:19)
[2021-05-12 03:14] VITALS: BP 135/47
[2021-05-12 04:27] LABS: BASOPHILS % (AUTO) 1 % (0-10); EOSINOPHILS # (AUTO) 0.4 10^3/uL (0.0-0.3); EOSINOPHILS % (AUTO) 4 % (0-10); HEMATOCRIT 36 % (40-54); HEMOGLOBIN 11.4 g/dL (13.3-17.7); LYMPHOCYTES # (AUTO) 1.1 10^3/uL (1.0-4.0); LYMPHOCYTES % (AUTO) 12 % (12-44); MEAN CORPUSCULAR HEMOGLOBIN 29 pg (25-34); MEAN CORPUSCULAR HGB CONC 32 g/dL (32-36); MEAN CORPUSCULAR VOLUME 93 fL (80-99); MEAN PLATELET VOLUME 10.6 fL (9.0-12.2); MONOCYTES # (AUTO) 0.8 10^3/uL (0.0-1.0); MONOCYTES % (AUTO) 9 % (0-12); NEUTROPHILS # (AUTO) 6.4 10^3/uL (1.8-7.8); NEUTROPHILS % (AUTO) 74 % (42-75); PLATELET COUNT 265 10^3/uL (130-400); WHITE BLOOD COUNT 8.7 10^3/uL (4.3-11.0)
[2021-05-12 06:13] LABS: ALBUMIN 3.5 GM/DL (3.2-4.5)
[2021-05-12 06:14] LABS: POTASSIUM 3.2 MMOL/L (3.6-5.0)
[2021-05-12 06:15] LABS: CALCIUM 8.7 MG/DL (8.5-10.1)
[2021-05-12 06:16] LABS: TOTAL PROTEIN 6.3 GM/DL (6.4-8.2)
[2021-05-12 06:18] LABS: BILIRUBIN,TOTAL 0.2 MG/DL (0.1-1.0)
[2021-05-12 06:20] LABS: CREATININE SERUM 1.02 MG/DL (0.60-1.30)
[2021-05-12 06:23] LABS: MAGNESIUM 2.2 MG/DL (1.6-2.4)
[2021-05-12] MEDS: inSUlin ASPART (NovoLOG) 1 UNIT/0.01 ML (CHARGE PER UNIT) SC SCH ×2 (06:25→10:21)
[2021-05-12] MEDS ORDERED: UMECLIDINIUM BROMIDE (INCRUSE ELLIPTA) 7'S IH SCH (08:00)
[2021-05-12 08:22] VITALS: BP 182/73
[2021-05-12] MEDS: SACUBITRIL/VALSARTAN 24/26 MG (ENTRESTO) TABLET PO SCH (08:28)
[2021-05-12] MEDS: hydrALAZINE (APRESOLINE) 25 MG TAB PO SCH (08:28)
[2021-05-12] MEDS: GABAPENTIN 300 MG (NEURONTIN) CAP PO SCH (08:28)
[2021-05-12] MEDS: DIVALPROX SPRINKLE 125 MG (DEPAKOTE) CAP PO SCH (08:28)
[2021-05-12] MEDS: NS IV 1000 ML 1,000 ML IV SCH (08:29)
[2021-05-12] MEDS ORDERED: NON-FORMULARY MEDICATION 1 EA EA (Empagliflozin (Jardiance) 25 MG) PO SCH (09:00)
[2021-05-12] MEDS ORDERED: ALLOPURINOL 300 MG (ZYLOPRIM) TAB PO SCH (09:00)
[2021-05-12] MEDS ORDERED: PANTOPRAZOLE 40 MG (PROTONIX) TAB PO SCH (09:00)
[2021-05-12] MEDS ORDERED: TORSEMIDE 20 MG (DEMADEX) TAB PO SCH (09:00)
[2021-05-12] MEDS ORDERED: FLUoxetine HCL 20 MG (PROzac) CAP PO SCH (09:00)
[2021-05-12] MEDS ORDERED: ASPIRIN 81 MG CHEW (CHILDREN'S ASA) PO SCH (09:00)
[2021-05-12] MEDS ORDERED: TAMSULOSIN 0.4 MG (FLOMAX) CAP PO SCH (09:00)
[2021-05-12] MEDS ORDERED: CLOPIDOGREL 75 MG (PLAVIX) TABLET PO SCH (09:00)
[2021-05-12] MEDS ORDERED: ISOSORBIDE MONONITRATE 60 MG (IMDUR) TAB PO SCH (09:00)
--- NOTE | 2021-05-12 09:37 | Progress Note - Cardiology ---
Cardiology SOAP Progress Note Subjective: No cp or palp or syncope or shortness of breath or groin discomfort or leg discomfort/discoloration No n/v/d Feels well. Wishes to go home Objective: I&O/Vital Signs 05/12/21 05/12/21 05/12/21 05/12/21 00:00 01:00 02:10 03:14 Temp 36.6 36.2 Pulse 58 80 68 Resp 14 18 B/P (MAP) 134/62 (86) 135/47 (76) Pulse Ox 97 93 96 O2 Delivery Room Air Room Air Room Air 05/12/21 05/12/21 05/12/21 05/12/21 07:29 08:19 08:22 08:34 Temp 36.8 Pulse 61 66 Resp 15 B/P (MAP) 182/73 (109) Pulse Ox 94 97 97 O2 Delivery Room Air Room Air Room Air 05/12/21 00:00 Intake Total 300 ml Output Total 1500 ml Balance -1200 ml Weight (Pounds): 352 Weight (Ounces): 8.0 Weight (Calculated Kilograms): [phone] Groin site without hematoma: Yes Condition: DP/PT pulses palpable Bruising: mild bruising Constitutional: AAO x 3, well-developed, well-nourished, other (obese) Respiratory: No accessory muscle use; other (good, bilateral air entry) Cardiovascular: regular rate-rhythm, S1 and S2, systolic murmur (soft LILLIE at card base) Gastrointestional: No tender; soft; No guarding, No rebound; audible bowel sounds Extremities: other (mild, bilateral leg edema, chronic, unchanged); No clubbing, No cyanosis Neurologic/Psychiatric: oriented x 3, other (moves all limbs equally) Skin: No rash on exposed areas, No ulcerations on exposed areas Results/Procedures: Labs Laboratory Tests 05/11/21 09:38: White Blood Count 9.5, Red Blood Count 4.28L, Hemoglobin 12.4L, Hematocrit 39L, Mean Corpuscular Volume 92, Mean Corpuscular Hemoglobin 29, Mean Corpuscular Hemoglobin Concent 32, Red Cell Distribution Width 16.8H, Platelet Count 293, Mean Platelet Volume 10.4, Prothrombin Time 18.4H, INR Comment 1.5H, Activated Partial Thromboplast Time 38H, Sodium Level 141, Potassium Level 3.5L, Chloride Level 101, Carbon Dioxide Level 27, Anion Gap 13, Blood Urea Nitrogen 20H, Creatinine 1.21, Estimat Glomerular Filtration Rate 62, BUN/Creatinine Ratio 17, Glucose Level 163H, Calcium Level 9.2, Corrected Calcium 9.3, Total Bilirubin 0.3, Aspartate Amino Transf (AST/SGOT) 14, Alanine Aminotransferase (ALT/SGPT) 10, Alkaline Phosphatase 92, Total Protein 7.3, Albumin 3.9, Triglycerides Level 376H, Cholesterol Level 195, LDL Cholesterol Direct 96, VLDL Cholesterol 75H, HD L Cholesterol 37L 05/11/21 16:12: Glucometer 141H 05/11/21 20:24: Glucometer 167H 05/12/21 04:15: White Blood Count 8.7, Red Blood Count 3.89L, Hemoglobin 11.4L, Hematocrit 36L, Mean Corpuscular Volume 93, Mean Corpuscular Hemoglobin 29, Mean Corpuscular Hemoglobin Concent 32, Red Cell Distribution Width 16.8H, Platelet Count 265, Mean Platelet Volume 10.6, Sodium Level 142, Potassium Level 3.2L, Chloride Level 106, Carbon Dioxide Level 25, Anion Gap 11, Blood Urea Nitrogen 17, Crea tinine 1.02, Estimat Glomerular Filtration Rate 75, BUN/Creatinine Ratio 17, Glucose Level 157H, Calcium Level 8.7, Corrected Calcium 9.1, Total Bilirubin 0.2, Aspartate Amino Transf (AST/SGOT) 13, Alanine Aminotransferase (ALT/SGPT) 9, Alkaline Phosphatase 74, Total Protein 6.3L, Albumin 3.5, Immature Granulocyte % (Auto) 0, Neutrophils (%) (Auto) 74, Lymphocytes (%) (Auto) 12, Monocytes (%) (Auto) 9, Eosinophils (%) (Auto) 4, Basophils (%) (Auto) 1, Ne utrophils # (Auto) 6.4, Lymphocytes # (Auto) 1.1, Monocytes # (Auto) 0.8, Eosinophils # (Auto) 0.4H, Basophils # (Auto) 0.0, Immature Granulocyte # (Auto) 0.0, Magnesium Level 2.2 Microbiology 05/11/21 MRSA Screen - Final, Complete MRSA not isolated Laboratory Tests 05/11/21 09:38 05/12/21 04:15 A/P: Assessment: CAD - s/p Promus element 3.5 x 24 mm stent to the proximal LAD on 05-14-2014. Last card cath of 10/20/15 showed mild to mod CAD, patent LAD stent, LVEF 50%, normal LVEDP, no significant MR - MPI of Jul 24, 2018 is indicative of a small to mod sized apical infarction. Apical hypokinesis. Mod cardiomegaly. LVEF 55% - Heart cath at [facility] in February 2021. Details unavailable. Pt's reports a h/o PTCA - Last card cath on 05/11/21: Coronary artery disease consisting of 80% mid vessel stenosis of the left circumflex artery, just following the origin of a large obtuse marginal branch. Successful balloon angioplasty resulted in reduction of the stenosis to less than 20%. The left anterior descending has a patent stent in its proximal portion and was exhibiting 70% to 80% distal stenosis, which was successfully stented with Sarah 2.25 x 12 mm stent that was deployed at 16 atmospheres with a final stent lumen size of 2.58 mm. The right coronary artery is previously known to be small and nondominant and could not be visualized on this study and may be occluded. The left circumflex artery is large and dominant. Well preserved global left ventricular systolic function with ejection fraction approximately 50% to 55%. Left ventricular end-diastolic pressure 17 mmHg. Cardioresp arrest and aspiration pneumonia in February 2021 (managed at [facility]) Mild cognitve dysunction since cardio resp arrest, as reported by his - CT head at [place] on 03/03/20: punctate foci of ischemia and findings suggestive of small vessel disease PAF diagnosed in February 2021 and treated with ext CV at [facility] Exertional shortness of breath, chronic - Last echo on 03/23/21 at [facility]: LVEF 60%, mild to mod RV dilatation with preserved function, no thrombus, mod MR (EF reported to improved from a previous TTE of 03/11/21 and MR reported to be more significant). No wall motion abnormality reported on echo of 03/23/21 (were reported on echo of 03/11/21) H/o small ascending thoracic aortic aneurysm on CT of 03/03/21 at [facility] Abnormal ECG: - ECG of 08/22/16 shows sinus rhythm with freq PACs, left axis dev, clockwise rotation of the heart, cannot exclude old ant LA Monoclonal B-cell lymphocytosis and lymphoma - followed by [facility] HTN - controlled HLP - statin therapy - managed by PCP DM II - not well controlled - managed by PCP Obesity - with BMI of approx 50 H/O ac renal failure - d/t rhabdomyolysis of undetermined etiology in the early according to the patient - d/t cardioresp arrest in February 2021 ([facility]) H/O bi-polar disorder - managed by PCP COPD - managed by PCP Sleep apnea - treated with CPAP Medication Intolerance - Intolerance to KRISTI secondary to cough Carotid dz - H/o L carotid stenting at [facility] in February 2020 (Dr Higuera) Chronic, bilateral leg swelling and intermittent venous ulcers - [facility] - No significant obstructive PAD on seg pressures of 09/06/19 Plan: * We have discussed in detail the cath findings and interventions undertaken * K low today. Replenish today and add low-dose supple K to discharge regimen * DAPT added to regimen * Close clinical f/u advised * Questions answered in detail ESPERANZA STANFORD MD FACP [facility] May 12, 2021 09:37
[2021-05-12] MEDS ORDERED: CLOP75TA28 PO (09:44)
[2021-05-12] MEDS ORDERED: POTA10TA36 PO (09:44)
[2021-05-12] MEDS ORDERED: KCL 20 MEQ TAB (K-DUR) PO ONE (09:45)
--- NOTE | 2021-05-12 09:45 | Discharge Inst-Post CATH ---
Discharge Inst-CATH/EP Post Cardiac Cath/EP D/C Inst Follow Up/Plan F/u with Dr Rendon on 05/17/21 ACTIVITY * Go Home directly and rest. * Limit activity of the leg (or wrist if it was used) for 7 days including aerobics, swimming, jogging, bicycling, etc. * Restrict stair-climbing for 7 days if possible, if not, climb up with your n on-cath leg, then bring together on the same step. * Avoid lifting, pushing, pulling or excessive movement of the affected ex tremity for 7 days. * Customary sexual activity may be resumed after 2 days-use caution not to use a position that strains or causes pain to the affected extremity. * No driving for 24 hours. * NO SMOKING. * Avoid straining for bowel movements for 7 days. * Gentle walking on level ground is allowed. * Returning to work will depend on the type of procedure and the results. Your doctor will discuss this with you. CALL YOUR DOCTOR FOR ANY OF THE FOLLOWING: *If bleeding from the puncture site occurs- Apply gentle pressure to site with clean cloth and call your doctor or EMS. * If a knot or lump forms under the skin, increases in size, or causes pain. * If bruising appears to be worsening or moving further down your leg instead of disappearing. * Temperature above 101 F. CARE OF YOUR GROIN INCISION; * Bruising or purple discoloration of the skin near the puncture site is common. * You may shower only, no bathtub bathing for 5 days. Be careful to avoid slipping as your leg may feel stiff. * If a closure device was used on your femoral artery, please see the attached guide regarding care of the device and your leg. * Leave dressing on FOR 24 hours. CARE OF YOUR WRIST INCISION; * Bruising or purple discoloration of the skin near the puncture site is common. * You may shower. * DO NOT submerge wrist. * Leave dressing on FOR 24 hours. ESPERANZA RENDON MD FACP [facility] CCDS May 12, 2021 09:45
--- NOTE | 2021-05-12 09:45 | Discharge Inst-Cardiology ---
Discharge Inst-Cardiac Discharge Medications New Medications: Potassium Chloride (Potassium Chloride) 10 Meq Tab.er.prt 10 MEQ PO DAILY for 90 Days, #90 TAB 3 Refills Clopidogrel Bisulfate (Clopidogrel) 75 Mg Tablet 75 MG PO DAILY for 90 Days, #90 TAB 3 Refills Continued Medications: Albuterol Sulfate (Proair Hfa) 1 Puff Puff 2 PUFF IH Q4H PRN for SHORTNESS OF BREATH, EA Allopurinol (Allopurinol) 300 Mg Tablet 300 MG PO DAILY, TAB Aspirin (Aspirin EC) 81 Mg Tablet.dr 81 MG PO DAILY, TAB Atorvastatin Calcium (Atorvastatin Calcium) 40 Mg Tablet 40 MG PO DAILY, TAB Carvedilol (Carvedilol) 12.5 Mg Tablet 12.5 MG PO BID, TAB Cephalexin (Cephalexin) 500 Mg Tablet 500 MG PO TID, TAB FILLED 05-05-2021 #21/ DAY SUPPLY Divalproex Sodium (Divalproex Sodium) 125 Mg Tablet.dr 125 MG PO 0700,1700,2200, TAB Empagliflozin (Jardiance) 25 Mg Tablet 25 MG PO DAILY, TAB Fluoxetine HCl (Fluoxetine HCl) 40 Mg Capsule 40 MG PO DAILY, CAP Fluticasone Propionate (Fluticasone Propionate) 16 Gm [place].susp 1 SPRAY NS HS, EA Gabapentin (Neurontin) 300 Mg Capsule 300 MG PO 0700,1700,2200, CAP Hydralazine HCl (Hydralazine HCl) 100 Mg Tablet 100 MG PO 0700,1700,2200, TAB Hydroxyzine Pamoate (Hydroxyzine Pamoate) 50 Mg Capsule 50 MG PO TID PRN for ANXIETY, CAP Insulin Aspart (Novolog Flexpen) 300 Units/3 Ml Solution 5-20 UNITS SC AC for SLIDING SCALE, EA Insulin Glargine,Hum.rec.anlog (Lantus) 100 Unit/1 Ml Vial 25 UNITS SC HS, EA Isosorbide Mononitrate (Isosorbide Mononitrate ER) 60 Mg Tab 60 MG PO DAILY, TAB Liraglutide (Victoza 3-Jair) 0.6 Mg/0.1 Ml Pen.injctr 1.8 MG INJ HS, EA Mirtazapine (Mirtazapine) 15 Mg Tablet 15 MG PO HS, TAB Oxycodone HCl/Acetaminophen (Oxycodone-Acetaminophen 5-325) 1 Each Tablet 1 EACH PO Q6H PRN for PAIN-MODERATE (5-7), TAB Pantoprazole Sodium (Pantoprazole Sodium) 40 Mg Tablet.dr 40 MG PO DAILY, TAB Sacubitril/Valsartan (Entresto 49 mg-51 mg Tablet) 1 Each Tablet 1 TAB PO BID, TAB Tamsulosin HCl (Flomax) 0.4 Mg Cap 0.4 MG PO DAILY, CAP Torsemide (Torsemide) 20 Mg Tablet 40 MG PO DAILY, TAB TAKES 2 (20MG) TABLETS Umeclidinium Brm/Vilanterol Tr (Anoro Ellipta 62.5-25 Mcg INH) 1 Each Blst.w.dev 1 EACH IH DAILY Warfarin Sodium (Warfarin Sodium) 5 Mg Tablet 5 MG PO SUN,MON,WED,FRI, TAB Warfarin Sodium (Warfarin Sodium) 5 Mg Tablet 7.5 MG PO TU,,SAT, TAB TAKES 1 (5MG) TABLETS ESPERANZA STANFORD MD FACP [facility] CCDS May 12, 2021 09:45
[2021-05-12] MEDS ORDERED: warFARin 5 MG (COUMADIN) TAB PO SCH (18:00)
== END 2021-05-12 11:45 | disposition home or self-care (01) ==
LOC: CATH 11:00 → CSD 12:26 → CATH 05-12 11:45
PROVIDERS: ATTEND Internal Medicine Cardiovascular Disease
DX: I25.10 Atherosclerotic heart disease of native coronary artery without angina pectoris (principal); G47.33 Obstructive sleep apnea (adult) (pediatric); G43.909 Migraine, unspecified, not intractable, without status migrainosus; I49.5 Sick sinus syndrome; K21.9 Gastro-esophageal reflux disease without esophagitis; I12.9 Hypertensive chronic kidney disease with stage 1 through stage 4 chronic kidney disease, or unspecified chronic kidney disease; E11.22 Type 2 diabetes mellitus with diabetic chronic kidney disease; N18.9 Chronic kidney disease, unspecified; J44.9 Chronic obstructive pulmonary disease, unspecified; I48.0 Paroxysmal atrial fibrillation; E78.2 Mixed hyperlipidemia; E66.01 Morbid (severe) obesity due to excess calories; Z68.43 Body mass index [BMI] 50.0-59.9, adult; E87.6 Hypokalemia; I65.23 Occlusion and stenosis of bilateral carotid arteries; Z79.82 Long term (current) use of aspirin; Z79.51 Long term (current) use of inhaled steroids; Z79.899 Other long term (current) drug therapy; Z87.891 Personal history of nicotine dependence
CPT/HCPCS: 80053 ×2; 80061; 82947 ×2; 83735; 85025; 85027; 85610; 85730; 87081; 92920; 93005; 93458; 93567; 94640 ×2; C1725; C1760; C1769; C1874; C1887 ×2; C1894 ×2; C9600; 36415

== ENCOUNTER → 2021-05-18 | Outpatient (CLI) | payer MEDICARE ==
[~2021-05-18] MED LIST changes: +CEPH500T PO; -HEParin (CATH LAB) 2,000 ML IV ONE; -LIDOCAINE 1% INJ 20 ML 20 ML VIAL ONE; -NS IV 1000 ML 1,000 ML IV SCH; -NS IV 1000 ML 1,000 ML ONE; +POTA10TA36 PO
== END ==
LOC: CARD 10:30
PROVIDERS: ATTEND Internal Medicine Cardiovascular Disease
DX: I51.7 Cardiomegaly (principal)
CPT/HCPCS: 93225; 93226; 93306

== ENCOUNTER 2021-06-01 10:39 | Day surgery (SDC) | payer MEDICARE ==
[~2021-06-01] VITALS: Ht 172.8 cm; Wt 152.4 kg
[2021-06-01] MEDS ORDERED: LIDOCAINE 1% INJ 20 ML 20 ML VIAL ONE (10:44)
[2021-06-01 10:58] VITALS: BP 151/75
[2021-06-01] MEDS ORDERED: LIDOCAINE 1% INJ 20 ML 20 ML VIAL INJ ONE (11:00)
--- NOTE | 2021-06-01 13:55 | OPERATIVE REPORT ---
DATE OF SERVICE: 06/01/2021 PREOPERATIVE DIAGNOSIS: Syncope. POSTOPERATIVE DIAGNOSIS: Syncope. PROCEDURE: Loop recorder implantation. INDICATIONS: The patient is a 56-year-old gentleman who had syncope versus cardiorespiratory arrest and aspiration pneumonia in 02/2021, which was managed at [facility] in [place]. He also has a history of sinus node dysfunction and paroxysmal atrial fibrillation. Because of concern over significant cardiac arrhythmia, implantable loop recorder implantation was carried out today after having obtained an informed consent. DESCRIPTION OF PROCEDURE: [facility]. The left prepectoral area was prepared and draped in the usual sterile fashion. Lidocaine 1% was infused to local anesthesia. The tools provided with the Done In :60 [employer] LINQ II device were used to make a pocket anterior to the fourth intercostal space into which the device was placed and the skin edges were closed using Dermabond and Steri-Strips. The serial number of the device is [id number]. Job ID: [id number] DocumentID: [id number] Dictated Date: 06/01/2021 11:34:56 Seed Sorter Date: 06/01/2021 13:55:30 Dictated By: ESPERANZA STANFORD MD, MA, FACP, FACC,
== END 2021-06-01 11:49 | disposition home or self-care (01) ==
LOC: CATH 10:39
PROVIDERS: ATTEND Internal Medicine Cardiovascular Disease
DX: R55 Syncope and collapse (principal); I49.5 Sick sinus syndrome; I48.0 Paroxysmal atrial fibrillation; E11.9 Type 2 diabetes mellitus without complications; E78.5 Hyperlipidemia, unspecified; E66.01 Morbid (severe) obesity due to excess calories; F31.9 Bipolar disorder, unspecified; G47.33 Obstructive sleep apnea (adult) (pediatric); G40.909 Epilepsy, unspecified, not intractable, without status epilepticus; I25.10 Atherosclerotic heart disease of native coronary artery without angina pectoris; J44.9 Chronic obstructive pulmonary disease, unspecified; K21.9 Gastro-esophageal reflux disease without esophagitis; I12.9 Hypertensive chronic kidney disease with stage 1 through stage 4 chronic kidney disease, or unspecified chronic kidney disease; C91.10 Chronic lymphocytic leukemia of B-cell type not having achieved remission; N18.9 Chronic kidney disease, unspecified; M79.89 Other specified soft tissue disorders; Z79.4 Long term (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; Z79.01 Long term (current) use of anticoagulants; Z79.82 Long term (current) use of aspirin; Z79.899 Other long term (current) drug therapy; Z87.891 Personal history of nicotine dependence; Z86.74 Personal history of sudden cardiac arrest; Z68.43 Body mass index [BMI] 50.0-59.9, adult
CPT/HCPCS: 33285; C1764

== ENCOUNTER 2021-07-23 09:08 | Outpatient (RCR) | payer MEDICARE ==
[2021-06-08 14:10] LABS: BASOPHILS % (AUTO) 1 % (0-10); EOSINOPHILS # (AUTO) 0.3 10^3/uL (0.0-0.3); EOSINOPHILS % (AUTO) 4 % (0-10); HEMATOCRIT 37 % (40-54); HEMOGLOBIN 11.6 g/dL (13.3-17.7); LYMPHOCYTES # (AUTO) 1.4 10^3/uL (1.0-4.0); LYMPHOCYTES % (AUTO) 16 % (12-44); MEAN CORPUSCULAR HEMOGLOBIN 30 pg (25-34); MEAN CORPUSCULAR HGB CONC 32 g/dL (32-36); MEAN CORPUSCULAR VOLUME 94 fL (80-99); MEAN PLATELET VOLUME 10.9 fL (9.0-12.2); MONOCYTES # (AUTO) 0.7 10^3/uL (0.0-1.0); MONOCYTES % (AUTO) 9 % (0-12); NEUTROPHILS # (AUTO) 5.8 10^3/uL (1.8-7.8); NEUTROPHILS % (AUTO) 70 % (42-75); PLATELET COUNT 252 10^3/uL (130-400); WHITE BLOOD COUNT 8.2 10^3/uL (4.3-11.0)
[2021-06-08 14:26] LABS: ALBUMIN 3.8 GM/DL (3.2-4.5); BILIRUBIN,TOTAL 0.4 MG/DL (0.1-1.0); CALCIUM 9.1 MG/DL (8.5-10.1); CREATININE SERUM 1.21 MG/DL (0.60-1.30); POTASSIUM 3.1 MMOL/L (3.6-5.0); TOTAL PROTEIN 6.9 GM/DL (6.4-8.2)
[~2021-07-23 09:08] MED LIST changes: -QUET50TA22 PO; +QUET50TA23 PO
== END 2021-08-05 | disposition home or self-care (01) ==
LOC: ONC 09:08
PROVIDERS: ATTEND Internal Medicine Hematology & Oncology
DX: Z45.2 Encounter for adjustment and management of vascular access device (principal); C91.10 Chronic lymphocytic leukemia of B-cell type not having achieved remission; E87.6 Hypokalemia; I25.10 Atherosclerotic heart disease of native coronary artery without angina pectoris; I10 Essential (primary) hypertension; E78.5 Hyperlipidemia, unspecified; E11.9 Type 2 diabetes mellitus without complications; E66.01 Morbid (severe) obesity due to excess calories; J44.9 Chronic obstructive pulmonary disease, unspecified; K21.9 Gastro-esophageal reflux disease without esophagitis; G40.909 Epilepsy, unspecified, not intractable, without status epilepticus; F31.9 Bipolar disorder, unspecified; Z68.43 Body mass index [BMI] 50.0-59.9, adult; Z79.899 Other long term (current) drug therapy; Z98.890 Other specified postprocedural states
CPT/HCPCS: 36591; 80053; 83615; 85025; 96523

== ENCOUNTER 2021-09-09 14:50 | Outpatient (RCR) | payer MEDICARE ==
[2021-08-25 09:44] LABS: BASOPHILS % (AUTO) 1 % (0-10); EOSINOPHILS # (AUTO) 0.3 10^3/uL (0.0-0.3); EOSINOPHILS % (AUTO) 4 % (0-10); HEMATOCRIT 38 % (40-54); HEMOGLOBIN 11.8 g/dL (13.3-17.7); LYMPHOCYTES % (AUTO) 15 % (12-44); MEAN CORPUSCULAR HEMOGLOBIN 27 pg (25-34); MEAN CORPUSCULAR HGB CONC 31 g/dL (32-36); MEAN CORPUSCULAR VOLUME 89 fL (80-99); MONOCYTES # (AUTO) 0.8 10^3/uL (0.0-1.0); MONOCYTES % (AUTO) 11 % (0-12); NEUTROPHILS % (AUTO) 70 % (42-75); PLATELET COUNT 343 10^3/uL (130-400); WHITE BLOOD COUNT 7.1 10^3/uL (4.3-11.0)
[2021-08-25 10:04] LABS: ALBUMIN 3.9 GM/DL (3.2-4.5); BILIRUBIN,TOTAL 0.4 MG/DL (0.1-1.0); CALCIUM 9.7 MG/DL (8.5-10.1); CREATININE SERUM 1.37 MG/DL (0.60-1.30); POTASSIUM 3.6 MMOL/L (3.6-5.0)
[~2021-09-09 14:50] MED LIST changes: -FLUO20CA46 PO; +FLUO20CA48 PO; +MONT-40 PO; -MONT10TA32 PO; +POTA-179 PO; -POTA10TA36 PO; +POTA10TA37 PO
== END 2021-09-24 | disposition home or self-care (01) ==
LOC: ONC 14:50
PROVIDERS: ATTEND Internal Medicine Hematology & Oncology
DX: Z45.2 Encounter for adjustment and management of vascular access device (principal); C91.10 Chronic lymphocytic leukemia of B-cell type not having achieved remission; J44.9 Chronic obstructive pulmonary disease, unspecified; K21.9 Gastro-esophageal reflux disease without esophagitis; E66.01 Morbid (severe) obesity due to excess calories; E87.6 Hypokalemia; E78.5 Hyperlipidemia, unspecified; I10 Essential (primary) hypertension; I25.10 Atherosclerotic heart disease of native coronary artery without angina pectoris; E11.9 Type 2 diabetes mellitus without complications; Z68.43 Body mass index [BMI] 50.0-59.9, adult; Z79.899 Other long term (current) drug therapy; Z98.890 Other specified postprocedural states
CPT/HCPCS: 36591; 80053; 83615; 85025; 99213

== ENCOUNTER 2021-12-08 08:46 | Outpatient (RCR) | payer MEDICARE ==
[~2021-12-08 08:46] MED LIST changes: +FLUT16SP22 NSEACH
[2021-12-08 09:27] LABS: BASOPHILS % (AUTO) 0 % (0-10); EOSINOPHILS # (AUTO) 0.6 10^3/uL (0.0-0.3); EOSINOPHILS % (AUTO) 6 % (0-10); HEMATOCRIT 36 % (40-54); HEMOGLOBIN 11.2 g/dL (13.3-17.7); LYMPHOCYTES # (AUTO) 1.1 10^3/uL (1.0-4.0); LYMPHOCYTES % (AUTO) 10 % (12-44); MEAN CORPUSCULAR HEMOGLOBIN 27 pg (25-34); MEAN CORPUSCULAR HGB CONC 31 g/dL (32-36); MEAN CORPUSCULAR VOLUME 86 fL (80-99); MEAN PLATELET VOLUME 10.3 fL (9.0-12.2); MONOCYTES # (AUTO) 0.8 10^3/uL (0.0-1.0); MONOCYTES % (AUTO) 7 % (0-12); NEUTROPHILS # (AUTO) 7.8 10^3/uL (1.8-7.8); NEUTROPHILS % (AUTO) 76 % (42-75); PLATELET COUNT 327 10^3/uL (130-400); WHITE BLOOD COUNT 10.2 10^3/uL (4.3-11.0)
[2021-12-08 09:48] LABS: ALBUMIN 3.8 GM/DL (3.2-4.5); BILIRUBIN,TOTAL 0.2 MG/DL (0.1-1.0); CALCIUM 8.6 MG/DL (8.5-10.1); CREATININE SERUM 1.36 MG/DL (0.60-1.30); POTASSIUM 4.3 MMOL/L (3.6-5.0); TOTAL PROTEIN 7.2 GM/DL (6.4-8.2)
[2021-12-16] MEDS ORDERED: CRV25T PO (17:51)
[2021-12-16] MEDS ORDERED: NAPR-915 PO (17:55)
[2021-12-16] MEDS ORDERED: TRZ50T PO (17:58)
[2021-12-16] MEDS ORDERED: AMLO-251 PO (18:02)
[2021-12-16] MEDS ORDERED: INSU100I34 SQ (18:29)
[2021-12-17] MEDS ORDERED: INSU100I14 SQ (00:10)
[2021-12-17] MEDS ORDERED: CLOP75TA69 PO (10:09)
[2021-12-17] MEDS ORDERED: NAPR-915 PO (10:09)
[2021-12-17] MEDS ORDERED: WARF7.5T3 PO (10:09)
[2021-12-17] MEDS ORDERED: OXYC1TAB15 PO (10:09)
[2021-12-17] MEDS ORDERED: ASPI-999 PO (10:09)
[2021-12-17] MEDS ORDERED: RT-ALBUINH INH (10:09)
[2021-12-17] MEDS ORDERED: POTA10TA37 PO (10:09)
[2021-12-17] MEDS ORDERED: UMEC62.5 INH (10:21)
[2021-12-17] MEDS ORDERED: RIVA20TA PO (10:56)
== END 2021-12-23 | disposition home or self-care (01) ==
LOC: ONC 08:46
PROVIDERS: ATTEND Internal Medicine Hematology & Oncology
DX: Z51.11 Encounter for antineoplastic chemotherapy (principal); Z45.2 Encounter for adjustment and management of vascular access device; C91.10 Chronic lymphocytic leukemia of B-cell type not having achieved remission; K21.9 Gastro-esophageal reflux disease without esophagitis; E66.9 Obesity, unspecified; I25.10 Atherosclerotic heart disease of native coronary artery without angina pectoris; E78.5 Hyperlipidemia, unspecified; I10 Essential (primary) hypertension; E11.9 Type 2 diabetes mellitus without complications
CPT/HCPCS: 80053; 83615; 85025; G0463; 36591; 99213

== ENCOUNTER 2021-12-16 12:29 | Observation (INO) | payer MEDICARE ==
[~2021-12-16] VITALS: Ht 172.8 cm; Wt 150.6 kg
[2021-12-16 16:00] VITALS: BP 138/55
[2021-12-16] MEDS ORDERED: ONDANSETRON 4 MG (ZOFRAN) ORAL DISSOLVE TAB PO PRN (16:00)
[2021-12-16] MEDS ORDERED: ACETAMINOPHEN 325 MG TABLET PO PRN (16:00)
[2021-12-16] MEDS ORDERED: BISACODYL 10 MG SUPP (DULCOLAX) PR PRN (16:00)
[2021-12-16] MEDS ORDERED: ANTACID SUSP 30 ML UDC (MYLANTA) PO PRN (16:00)
[2021-12-16] MEDS ORDERED: CALCIUM CARBONATE 500 MG (TUMS) TAB.CHEW PO PRN (16:00)
[2021-12-16] MEDS ORDERED: LACTULOSE SYRUP 10GM/15ML (ENULOSE) 30ML UDC PO PRN (16:00)
[2021-12-16] MEDS ORDERED: diphenhydrAMINE 50 MG/ML INJ (BENADRYL) IVP PRN (16:00)
[2021-12-16] MEDS ORDERED: diphenhydrAMINE 25 MG TAB (BENADRYL) PO PRN (16:00)
[2021-12-16] MEDS ORDERED: polyethylene glycoL POWDER 17 GM (MIRALAX) PACK PO PRN (16:00)
[2021-12-16] MEDS ORDERED: MILK OF MAGNESIA 400 MG/5 ML 30 ML UDC PO PRN (16:00)
[2021-12-16] MEDS ORDERED: morphine INJ 4 MG/ML 1 ML (VIAL/SYRINGE) IV PRN (16:00)
[2021-12-16] MEDS ORDERED: ONDANSETRON 4 MG/2 ML (SDV) Z0FRAN IV PRN (16:00)
[2021-12-16] MEDS ORDERED: MELATONIN 3 MG TABLET PO PRN (16:00)
--- NOTE | 2021-12-16 16:21 | Consultation-Cardiology ---
HPI-Cardiology Cardiology Consultation: Date of Consultation 12/16/21 Date of Admission Attending Physician Juliet Oliver DO Admitting Physician Consulting Physician JANICE VENCES QTQ-[place] Hx Patient Social History 2nd Hand Smoke Exposure: No Immunizations Up To Date Tetanus Booster (TDap): Unknown Date of Pneumonia Vaccine: Aug 19, 2014 Date of Influenza Vaccine: Nov 02, 2017 Past Medical History PMH As described under Assessment. Family Medical History Family History: Alcoholism G8 BROTHER Arthritis 19 FATHER Cataracts 19 FATHER Completed stroke 19 MOTHER Deafness or hearing loss 19 FATHER Diabetes mellitus 19 MOTHER Headache disorder 19 FATHER 19 MOTHER G8 BROTHER G8 SISTER Hypercholesterolemia 19 FATHER Hypertension 19 FATHER Prostate cancer G8 BROTHER Psychosocial problem 19 MOTHER Respiratory disorder 19 FATHER 19 MOTHER Visual disorder 19 MOTHER No Family History of: AIDS Abdominal aortic aneurysm Hettinger's disease Alzheimer's disease Aphasia Asthma Cancer of mouth Cardiovascular disease Colon cancer Congenital disease Congenital heart disease Coronary thrombosis Cystic fibrosis Dementia Drug abuse Dysphasia Fibrocystic disease of breast Gastroenteritis Glaucoma Infertility Kidney disease Myocardial infarction Neoplasm Not obtainable due to adoption Osteoporosis Parkinson's disease Seizure disorder Severe allergy Thyroid disease Tuberculosis Allergies and Home Medications Allergies Coded Allergies: fluticasone furoate (Verified Allergy, Severe, Anaphylaxis, 02/25/21) vilanterol (Verified Allergy, Severe, Anaphylaxis, 02/25/21) insulin detemir (Verified Allergy, Intermediate, Vomiting, 02/25/21) Patient Home Medication List Albuterol Sulfate (Proair Hfa) 1 Puff Puff, 2 PUFF IH Q4H PRN for SHORTNESS OF BREATH, (Reported) Entered as Reported by: ALEKSANDRA TAMAYO on 05/11/21 1028 Last Action: Continued Allopurinol (Allopurinol) 300 Mg Tablet, 300 MG PO DAILY, (Reported) Entered as Reported by: JUAN J MARTINEZ on 09/28/17 0800 Last Action: Continued Amlodipine Besylate (Amlodipine Besylate) 10 Mg Tablet, 10 MG PO DAILY, (Reported) Entered as Reported by: SARTHAK ROBBINS on 12/16/21 1802 Last Action: Continued Aspirin (Aspirin EC) 81 Mg Tablet.dr, 81 MG PO DAILY, (Reported) Entered as Reported by: JUAN J MARTINEZ on 09/28/17 0913 Last Action: Continued Atorvastatin Calcium (Atorvastatin Calcium) 40 Mg Tablet, 40 MG PO DAILY, (Reported) Entered as Reported by: ESTEFANI MAYORGA on 03/02/20 1227 Last Action: Continued Carvedilol (Coreg) 25 Mg Tab, 25 MG PO BID, (Reported) Entered as Reported by: SARTHAK ROBBINS on 12/16/21 1751 Last Action: Converted Clopidogrel Bisulfate (Clopidogrel) 75 Mg Tablet, 75 MG PO DAILY Prescribed by: ESPERANZA STANFORD on 05/12/21 0944 Last Action: Continued Divalproex Sodium (Divalproex Sodium) 125 Mg Tablet.dr, 125 MG PO 0700,1700,2200, (Reported) Entered as Reported by: CORRIE HANSEN on 02/25/21 0906 Last Action: Converted Empagliflozin (Jardiance) 25 Mg Tablet, 25 MG PO DAILY, (Reported) Entered as Reported by: ALEKSANDRA TAMAYO on 05/11/21 1028 Last Action: Converted Fluoxetine HCl (Fluoxetine HCl) 40 Mg Capsule, 40 MG PO DAILY, (Reported) Entered as Reported by: CORRIE HANSEN on 02/25/21 0905 Last Action: Converted Fluticasone Propionate (Fluticasone Propionate) 16 Gm [place].susp, 1 SPRAY NS HS, (Reported) Entered as Reported by: JUAN J MARTINEZ on 09/28/17 0800 Last Action: Continued Gabapentin (Neurontin) 300 Mg Capsule, 600 MG PO 0700,1700,2200, (Reported) Entered as Reported by: ESTEFANI MAYORGA on 03/02/20 1227 Last Action: Continued Hydralazine HCl (Hydralazine HCl) 100 Mg Tablet, 100 MG PO 0700,1700,2200, (Reported) Entered as Reported by: ALEKSANDRA TAMAYO on 05/11/21 1028 Last Action: Converted Hydroxyzine Pamoate (Hydroxyzine Pamoate) 50 Mg Capsule, 50 MG PO BID PRN for ANXIETY, (Reported) Entered as Reported by: ALEKSANDRA TAMAYO on 05/11/21 102 Last Action: Converted Insulin Aspart (Novolog Flexpen) 300 Units/3 Ml Solution, 20 UNITS SQ AC, (Reported) Entered as Reported by: ROULA DIAZ on 12/17/21 0010 Last Action: Reviewed Insulin Glargine,Hum.rec.anlog (Basaglar Kwikpen U-100) 100 Unit/1 Ml Insuln.pen, 30 UNIT SQ HS, (Reported) Entered as Reported by: SARTHAK ROBBINS on 12/16/21 1829 Last Action: Reviewed Isosorbide Mononitrate (Isosorbide Mononitrate ER) 60 Mg Tab, 60 MG PO DAILY, (Reported) Entered as Reported by: ALEKSANDRA TAMAYO on 05/11/21 1028 Last Action: Continued Liraglutide (Victoza 3-Jair) 0.6 Mg/0.1 Ml Pen.injctr, 1.2 MG INJ DAILY, (Repor yarely) Entered as Reported by: JUAN J MARTINEZ on 10/20/15 0915 Last Action: Reviewed Naproxen (Naproxen) 500 Mg Tablet, 500 MG PO Q12H, (Reported) Entered as Reported by: SARTHAK ROBBINS on 12/16/21 1755 Last Action: Held Oxycodone HCl/Acetaminophen (Oxycodone-Acetaminophen 5-325) 1 Each Tablet, 1 EACH PO Q6H PRN for PAIN-MODERATE (5-7), (Reported) Entered as Reported by: ALEKSANDRA TAMAYO on 05/11/21 102 Last Action: Continued Pantoprazole Sodium (Pantoprazole Sodium) 40 Mg Tablet.dr, 40 MG PO DAILY, (Reported) Entered as Reported by: CORRIE HANSEN on 02/25/21 0905 Last Action: Continued Potassium Chloride (Potassium Chloride) 10 Meq Tab.er.prt, 10 MEQ PO DAILY Prescribed by: ESPERANZA STANFORD on 05/12/21 0944 Last Action: Converted Sacubitril/Valsartan (Entresto 49 mg-51 mg Tablet) 1 Each Tablet, 1 TAB PO BID, (Reported) Entered as Reported by: ALEKSANDRA TAMAYO on 05/11/21 1028 Last Action: Converted Tamsulosin HCl (Flomax) 0.4 Mg Cap, 0.4 MG PO DAILY, (Reported) Entered as Reported by: ESTEFANI MAYORGA on 03/02/20 1230 Last Action: Continued Torsemide (Torsemide) 20 Mg Tablet, 40 MG PO DAILY, (Reported) Entered as Reported by: ALEKSANDRA TAMAYO on 05/11/21 1028 Last Action: Continued Trazodone HCl (Trazodone HCl) 50 Mg Tablet, 1-2 TAB PO HS, (Reported) Entered as Reported by: SARTHAK ROBBINS on 12/16/21 1758 Last Action: Continued Warfarin Sodium (Warfarin Sodium) 5 Mg Tablet, 7.5 MG PO DAILY, (Reported) Entered as Reported by: ALEKSANDRA TAMAYO on 05/11/21 102 Last Action: Held Discontinued Medications Carvedilol (Carvedilol) 12.5 Mg Tablet, 12.5 MG PO BID, (Reported) Discontinued Reason: Provider Change Entered as Reported by: ALEKSANDRA TAMAYO on 05/11/21 102 Last Action: Discontinued Cephalexin (Cephalexin) 500 Mg Tablet, 500 MG PO TID, (Reported) Discontinued Reason: No Longer Taking Entered as Reported by: ESTEFANI MAYORGA on 05/11/21 1338 Last Action: Discontinued Insulin Aspart (Novolog Flexpen) 300 Units/3 Ml Solution, 5-20 UNITS SC AC, (Reported) Discontinued Reason: No Longer Taking Entered as Reported by: JUAN J MARTINEZ on 10/20/15 0915 Last Action: Discontinued Insulin Glargine,Hum.rec.anlog (Lantus) 100 Unit/1 Ml Vial, 30 UNITS SC HS, (Reported) Discontinued Reason: No Longer Taking Entered as Reported by: JUAN J MARTINEZ on 10/20/1515 Last Action: Discontinued Mirtazapine (Mirtazapine) 15 Mg Tablet, 15 MG PO HS, (Reported) Discontinued Reason: No Longer Taking Entered as Reported by: ESTEFANI MAYORGA on 03/02/20 1227 Last Action: Discontinued Umeclidinium Brm/Vilanterol Tr (Anoro Ellipta 62.5-25 Mcg INH) 1 Each Blst.w.dev, 1 EACH IH DAILY, (Reported) Discontinued Reason: No Longer Taking Entered as Reported by: ALEKSANDRA TAMAYO on 05/11/21 102 Last Action: Discontinued Warfarin Sodium (Warfarin Sodium) 5 Mg Tablet, 5 MG PO SUN,MON,WED,FRI, (Reported) Discontinued Reason: Provider Change Entered as Reported by: ALEKSANDRA TAMAYO on 05/11/211027 Last Action: Discontinued Physical Exam-Cardiology Physical Exam Vital Signs/I&O 12/17/21 12/17/21 12/17/21 12/17/21 00:00 01:00 03:53 07:00 Temp 36.1 Pulse 70 51 56 Resp 18 B/P (MAP) () 120/50 (73) Pulse Ox 95 O2 Delivery Room Air Nasal Cannula O2 Flow Rate 2.00 12/17/21 08:00 Temp 36.3 Pulse 52 Resp 20 B/P (MAP) 146/62 (90) Pulse Ox 96 O2 Delivery Room Air 12/17/21 00:00 Intake Total 600 ml Balance 600 ml Capillary Refill : Data Review Labs Laboratory Tests 12/16/21 16:10: Glucometer 225H 12/16/21 16:33: White Blood Count 8.9, Red Blood Count 3.94L, Hemoglobin 10.3L, Hematocrit 34L, Mean Corpuscular Volume 85, Mean Corpuscular Hemoglobin 26, Mean Corpuscular Hemoglobin Concent 31L, Red Cell Distribution Width 15.9H, Platelet Count 350, Mean Platelet Volume 9.8, Immature Granulocyte % (Auto) 0, Neutrophils (%) (Auto) 68, Lymphocytes (%) (Auto) 14, Monocytes (%) (Auto) 10, Eosinophils (%) (Auto) 7, Basophils (%) (Auto) 1, Neutrophils # (Auto) 6.0, Lymphocytes # (Auto) 1.3, Monocytes # (Auto) 0.9, Eosinophils # (Auto) 0.6H, Basophils # (Auto) 0.1, Immature Granulocyte # (Auto) 0.0, Prothrombin Time 75.9*H, INR Comment 9.3*H, Sodium Level 137, Potassium Level 3.4L, Chloride Level 101, Carbon Dioxide Level 25, Anion Gap 11, Blood Urea Nitrogen 21H, Creatinine 1.67H, Estimat Glomerular Filtration Rate 47, BUN/Creatinine Ratio 13, Glucose Level 243H, Calcium Level 8.9, Corrected Calcium 9.1, Total Bilirubin 0.3, Aspartate Amino Transf (AST/SGOT) 11, Alanine Aminotransferase (ALT/SGPT) 10, Alkaline Phosphatase 72, Total Protein 6.8, Albumin 3.7 12/16/21 20:03: Glucometer 202H 12/17/21 05:20: Glucometer 118H 12/17/21 06:20: White Blood Count 10.0, Red Blood Count 3.75L, Hemoglobin 9.7L, Hematocrit 32L, Mean Corpuscular Volume 85, Mean Corpuscular Hemoglobin 26, Mean Corpuscular Hemoglobin Concent 30L, Red Cell Distribution Width 15.9H, Platelet Count 330, Mean Platelet Volume 9.9, Immature Granulocyte % (Auto) 0, Neutrophils (%) (Auto) 71, Lymphocytes (%) (Auto) 11L, Monocytes (%) (Auto) 10, Eosinophils (%) (Auto) 7, Basophils (%) (Auto) 1, Neutrophils # (Auto) 7.1, Lymphocytes # (Auto) 1.1, Monocytes # (Auto) 1.0, Eosinophils # (Auto) 0.7H, Basophils # (Auto) 0.1, Immature Granulocyte # (Auto) 0.0, Prothrombin Time 43.2H, INR Comment 4.5H, Sodium Level 143, Potassium Level 3.7, Chloride Level 107, Carbon Dioxide Level 26, Anion Gap 10, Blood Urea Nitrogen 19H, Creatinine 1.35H, Estimat Glomerular Filtration Rate 61, BUN/Creatinine Ratio 14, Glucose Level 146H, Calcium Level 8.6, Corrected Calcium 8.9, Total Bilirubin 0.3, Aspartate Amino Transf (AST/SGOT) 17, Alanine Aminotransferase (ALT/SGPT) 11, Alkaline Phosphatase 68, Total Protein 6.5, Albumin 3.6 A/P-Cardiology Assessment/Admission Diagnosis Hypertension Cardioresp arrest and aspiration pneumonia in February 2021 (managed at [facility]) - Echo of 05/18/21: LVEF 50-55%, grade 1 schmidt dysfunction, mod RV and mod to sev LA enlargement Mild cognitive dysunction since cardio resp arrest, as reported by his - CT head at [place] on 03/03/20: punctate foci of ischemia and findings suggestive of small vessel disease PAF diagnosed in February 2021 and treated with ext CV at [facility] - Holter of 05/18/21: NSR with evidence of SSS, average heart rate 71 bpm, no VT, no significant miguel - ILR implanted 06-01-21 - warfarin tx - managed by his PCP Exertional shortness of breath, chronic - Last echo on 03/23/[address] [facility]: LVEF 60%, mild to mod RV dilatation with preserved function, no thrombus, mod MR (EF reported to improved from a previous TTE of 03/11/21 and MR reported to be more significant). No wall motion abnormality reported on echo of 03/23/21 (were reported on echo of 03/11/21) CAD - s/p Promus element 3.5 x 24 mm stent to the proximal LAD on 05-14-2014. Last card cath of 10/20/15 showed mild to mod CAD, patent LAD stent, LVEF 50%, normal LVEDP, no significant MR - MPI of Jul 24, 2018 is indicative of a small to mod sized apical infarction. Apical hypokinesis. Mod cardiomegaly. LVEF 55% - Last heart cath at [facility] in February 2021. Details unavailable. Pt's reports a h/o PTCA - Most recent cardiac cath of 05-11-21 showed CAD consisting of 80% mid vessel stenosis of the left cx, just followed th origin of a large OM branch. Successful balloon angioplasty resulted in reduction of the stenosis to less than 20%. The LAD has a patent stent in its proximal portion and was exhibiting 70% to 80% distal stenosis, which was successfully stented with Sarah 2.25 x 12 mm stent that was deployed at 16 atmosphere with a final stent lumen size of 2.58 mm. The RCA is previously known to be small and nondominant and could not be visualized on this study and may be occluded. The left cx artery is large and dominant. LVEF 50-55%. LVEDP 17 mmHg H/o small ascending thoracic aortic aneurysm on CT of 03/03/21 at [facility] Abnormal ECG: - ECG of 08/22/16 shows sinus rhythm with freq PACs, left axis dev, clockwise rotation of the heart, cannot exclude old ant DC Monoclonal B-cell lymphocytosis and lymphoma - followed by [facility] HTN - controlled HLP - statin therapy - managed by PCP DM II - not well controlled - managed by PCP Obesity - with BMI of approx 50 H/O ac renal failure - d/t rhabdomyolysis of undetermined etiology in the early according to the patient - d/t cardioresp arrest in February 2021 ([facility]) H/O bi-polar disorder - managed by PCP COPD - managed by PCP Sleep apnea - treated with CPAP Medication Intolerance - Intolerance to KRISTI secondary to cough Carotid dz - H/o L carotid stenting at [facility] in February 2020 (Dr Higuera) Chronic, bilateral leg swelling and intermittent venous ulcers - [facility] - No significant obstructive PAD on seg pressures of 09/06/19 JANICE MURDOCK Dec 16, 2021 16:21
[2021-12-16 16:36] VITALS: BP 138/55
[2021-12-16 16:43] LABS: BASOPHILS # (AUTO) 0.1 10^3/uL (0.0-0.1); BASOPHILS % (AUTO) 1 % (0-10); EOSINOPHILS # (AUTO) 0.6 10^3/uL (0.0-0.3); EOSINOPHILS % (AUTO) 7 % (0-10); HEMATOCRIT 34 % (40-54); HEMOGLOBIN 10.3 g/dL (13.3-17.7); LYMPHOCYTES # (AUTO) 1.3 10^3/uL (1.0-4.0); LYMPHOCYTES % (AUTO) 14 % (12-44); MEAN CORPUSCULAR HEMOGLOBIN 26 pg (25-34); MEAN CORPUSCULAR HGB CONC 31 g/dL (32-36); MEAN CORPUSCULAR VOLUME 85 fL (80-99); MEAN PLATELET VOLUME 9.8 fL (9.0-12.2); MONOCYTES # (AUTO) 0.9 10^3/uL (0.0-1.0); MONOCYTES % (AUTO) 10 % (0-12); NEUTROPHILS % (AUTO) 68 % (42-75); PLATELET COUNT 350 10^3/uL (130-400); WHITE BLOOD COUNT 8.9 10^3/uL (4.3-11.0)
[2021-12-16] MEDS ORDERED: RT-ALBUTEROL SULF 2.5 MG/3 ML PRE-MIX VIAL INH PRN (16:45)
[2021-12-16 16:53] LABS: ALBUMIN 3.7 GM/DL (3.2-4.5)
[2021-12-16 16:54] LABS: POTASSIUM 3.4 MMOL/L (3.6-5.0)
[2021-12-16 16:55] LABS: CALCIUM 8.9 MG/DL (8.5-10.1)
[2021-12-16 16:56] LABS: TOTAL PROTEIN 6.8 GM/DL (6.4-8.2)
[2021-12-16 16:58] LABS: BILIRUBIN,TOTAL 0.3 MG/DL (0.1-1.0)
[2021-12-16 17:00] LABS: CREATININE SERUM 1.67 MG/DL (0.60-1.30)
[2021-12-16 17:04] LABS: PROTHROMBIN TIME PATIENT 75.9 SEC (12.2-14.7)
[2021-12-16 17:05] LABS: INR 9.3 (0.8-1.4)
[2021-12-16] MEDS ORDERED: NS IV 500 ML 500 ML IV SCH (17:15)
[2021-12-16] MEDS ORDERED: PHYTONADIONE (VIT. K) 10 MG/ML AMP IM ONE (17:15)
[2021-12-16] MEDS ORDERED: VITAMIN K 1 MG/ML ORAL SOLN 1 ML SYRINGE PO ONE (17:15)
--- NOTE | 2021-12-16 17:25 | Consultation-Cardiology ---
HPI-Cardiology Cardiology Consultation: Date of Consultation 12/16/21 Time Seen by a Provider: 17:00 Date of Admission Attending Physician Juliet Oliver DO Admitting Physician Consulting Physician ESPERANZA STANFORD MD, MA, FACP, FACC, [facility], CCDS Physician requesting consult: Dr Oliver HPI: Chief Complaint: Reason for Card consult: elevated INR, h/o PAF, h/o cardiomyopathy 56 yo man with extensive cardiac history outlined below who worked in his yard 2-3 days go and sustained minor scratches on the legs and arms from the bushes. They have continue to ooze and his pcp Dr Oliver found his INR to be significantly elevated and advised admission. No blood in stools or urine or any other overt bleeding (other than oozing from scratches). He denies cp or palp or syncope. Has chronic shortness of breath with exertion, unchanged. No recent swelling. No n/v/d Review of Systems-Cardiology Review of Systems Constitutional: No malaise, No weight loss, No weight gain Eyes: No vision change Ears/Nose/Throat: No ear discharge, No nasal drainage, No recent hearing loss Respiratory: As described under HPI Cardiovascular: As described under HPI Gastrointestinal: As described under HPI Genitourinary: No dysuria, No hematuria, No urine frequency changes Musculoskeletal: back pain (chroni) Skin: No rash, No ulcerations Psychiatric/Neurological: No seizure, No focal weakness, No syncope Hematologic: No bleeding abnormalities LKG-Bhnhpb-Cmiheo Hx Patient Social History Smoking Status: Former Smoker 2nd Hand Smoke Exposure: No Have you traveled recently?: No Alcohol Use?: No Pt feels they are or have been: No Immunizations Up To Date Tetanus Booster (TDap): Unknown Date of Pneumonia Vaccine: Aug 19, 2014 Date of Influenza Vaccine: Jun 25, 2021 Past Medical History PMH As described under Assessment. Family Medical History Family History: Alcoholism G8 BROTHER Arthritis 19 FATHER Cataracts 19 FATHER Completed stroke 19 MOTHER Deafness or hearing loss 19 FATHER Diabetes mellitus 19 MOTHER Headache disorder 19 FATHER 19 MOTHER G8 BROTHER G8 SISTER Hypercholesterolemia 19 FATHER Hypertension 19 FATHER Prostate cancer G8 BROTHER Psychosocial problem 19 MOTHER Respiratory disorder 19 FATHER 19 MOTHER Visual disorder 19 MOTHER No Family History of: AIDS Abdominal aortic aneurysm Krishna's disease Alzheimer's disease Aphasia Asthma Cancer of mouth Cardiovascular disease Colon cancer Congenital disease Congenital heart disease Coronary thrombosis Cystic fibrosis Dementia Drug abuse Dysphasia Fibrocystic disease of breast Gastroenteritis Glaucoma Infertility Kidney disease Myocardial infarction Neoplasm Not obtainable due to adoption Osteoporosis Parkinson's disease Seizure disorder Severe allergy Thyroid disease Tuberculosis Allergies and Home Medications Allergies Coded Allergies: fluticasone furoate (Verified Allergy, Severe, Anaphylaxis, 02/25/21) vilanterol (Verified Allergy, Severe, Anaphylaxis, 02/25/21) insulin detemir (Verified Allergy, Intermediate, Vomiting, 02/25/21) Patient Home Medication List Home Medication List Reviewed: Yes Albuterol Sulfate (Proair Hfa) 1 Puff Puff, 2 PUFF IH Q4H PRN for SHORTNESS OF BREATH, (Reported) Entered as Reported by: ALEKSANDRA TAMAYO on 05/11/21 1028 Allopurinol (Allopurinol) 300 Mg Tablet, 300 MG PO DAILY, (Reported) Entered as Reported by: JUAN J MARTINEZ on 09/28/17 0800 Aspirin (Aspirin EC) 81 Mg Tablet., 81 MG PO DAILY, (Reported) Entered as Reported by: JUAN J MARTINEZ on 09/28/17 0913 Atorvastatin Calcium (Atorvastatin Calcium) 40 Mg Tablet, 40 MG PO DAILY, (Reported) Entered as Reported by: ESTEFANI MAYORGA on 03/02/20 1227 Carvedilol (Carvedilol) 12.5 Mg Tablet, 12.5 MG PO BID, (Reported) Entered as Reported by: ALEKSANDRA TAMAYO on 05/11/21 1028 Cephalexin (Cephalexin) 500 Mg Tablet, 500 MG PO TID, (Reported) Entered as Reported by: ESTEFANI MAYORGA on 05/11/21 1338 Clopidogrel Bisulfate (Clopidogrel) 75 Mg Tablet, 75 MG PO DAILY Prescribed by: ESPERANZA STANFORD on 05/12/21 0944 Divalproex Sodium (Divalproex Sodium) 125 Mg Tablet.dr, 125 MG PO 0700,1700,2200, (Reported) Entered as Reported by: CORRIE HANSEN on 02/25/21 09 Empagliflozin (Jardiance) 25 Mg Tablet, 25 MG PO DAILY, (Reported) Entered as Reported by: ALEKSANDRA TAMAYO on 05/11/21 1028 Fluoxetine HCl (Fluoxetine HCl) 40 Mg Capsule, 40 MG PO DAILY, (Reported) Entered as Reported by: CORRIE HANSEN on 02/25/21 0905 Fluticasone Propionate (Fluticasone Propionate) 16 Gm [place].susp, 1 SPRAY NS HS, (Reported) Entered as Reported by: JUAN J MARTINEZ on 09/28/17 0800 Gabapentin (Neurontin) 300 Mg Capsule, 300 MG PO 0700,1700,2200, (Reported) Entered as Reported by: ESTEFANI MAYORGA on 03/02/20 1227 Hydralazine HCl (Hydralazine HCl) 100 Mg Tablet, 100 MG PO 0700,1700,2200, (Reported) Entered as Reported by: ALEKSANDRA TAMAYO on 05/11/21 1028 Hydroxyzine Pamoate (Hydroxyzine Pamoate) 50 Mg Capsule, 50 MG PO TID PRN for ANXIETY, (Reported) Entered as Reported by: ALEKSANDRA TAMAYO on 05/11/21 102 Insulin Aspart (Novolog Flexpen) 300 Units/3 Ml Solution, 5-20 UNITS SC AC, (Reported) Entered as Reported by: JUAN J MARTINEZ on 10/20/15 09 Insulin Glargine,Hum.rec.anlog (Lantus) 100 Unit/1 Ml Vial, 25 UNITS SC HS, (Reported) Entered as Reported by: JUAN J MARTINEZ on 10/20/15 0915 Isosorbide Mononitrate (Isosorbide Mononitrate ER) 60 Mg Tab, 60 MG PO DAILY, (Reported) Entered as Reported by: ALEKSANDRA TAMAYO on 05/11/21 1028 Liraglutide (Victoza 3-Jair) 0.6 Mg/0.1 Ml Pen.injctr, 1.8 MG INJ HS, (Reported) Entered as Reported by: JUAN J MARTINEZ on 10/20/15 0915 Mirtazapine (Mirtazapine) 15 Mg Tablet, 15 MG PO HS, (Reported) Entered as Reported by: ESTEFANI MAYORGA on 03/02/20 122 Oxycodone HCl/Acetaminophen (Oxycodone-Acetaminophen 5-325) 1 Each Tablet, 1 EACH PO Q6H PRN for PAIN-MODERATE (5-7), (Reported) Entered as Reported by: ALEKSANDRA TAMAYO on 05/11/21 1028 Pantoprazole Sodium (Pantoprazole Sodium) 40 Mg Tablet.dr, 40 MG PO DAILY, (Reported) Entered as Reported by: CORRIE HANSEN on 02/25/21 0905 Potassium Chloride (Potassium Chloride) 10 Meq Tab.er.prt, 10 MEQ PO DAILY Prescribed by: ESPERANZA STANFORD on 05/12/21 0944 Sacubitril/Valsartan (Entresto 49 mg-51 mg Tablet) 1 Each Tablet, 1 TAB PO BID, (Reported) Entered as Reported by: ALEKSANDRA TAMAYO on 05/11/21 1028 Tamsulosin HCl (Flomax) 0.4 Mg Cap, 0.4 MG PO DAILY, (Reported) Entered as Reported by: ESTEFANI MAYORGA on 03/02/20 1230 Torsemide (Torsemide) 20 Mg Tablet, 40 MG PO DAILY, (Reported) Entered as Reported by: ALEKSANDRA TAMAYO on 05/11/21 1028 Umeclidinium Brm/Vilanterol Tr (Anoro Ellipta 62.5-25 Mcg INH) 1 Each Bls t.w.dev, 1 EACH IH DAILY, (Reported) Entered as Reported by: ALEKSANDRA TAMAYO on 05/11/21 1028 Warfarin Sodium (Warfarin Sodium) 5 Mg Tablet, 5 MG PO SUN,MON,WED,FRI, (Reported) Entered as Reported by: ALEKSANDRA TAMAYO on 05/11/21 1028 Warfarin Sodium (Warfarin Sodium) 5 Mg Tablet, 7.5 MG PO TUES,TH,SAT, (Reported) Entered as Reported by: ALEKSANDRA TAMAYO on 05/11/21 1028 Physical Exam-Cardiology Physical Exam Vital Signs/I&O 12/16/21 12/16/21 12/16/21 16:00 16:36 17:00 Temp 36.0 36.0 Pulse 52 52 Resp 20 B/P (MAP) 138/55 (82) Pulse Ox 94 94 94 O2 Delivery Room Air Room Air Capillary Refill : Constitutional: AAO x 3, well-developed, well-nourished HEENT: EOMI, hearing is well preserved; No xanthelasmas are seen Neck: carotid pulses are 2 + bilaterally, with good upstrokes Respiratory: No accessory muscle use; other (good, bilateral air entry) Cardiovascular: regular rate-rhythm, S1 and S2, systolic murmur (soft LILLIE at card base) Gastrointestinal: No tender; soft; No guarding, No rebound; audible bowel sounds Extremities: swelling (mild, bilat leg swelling); No clubbing, No cyanosis Neurologic/Psychiatric: oriented x 3, other (moves all limbs equally) Skin: other (forearms and lower leg under dressing) Data Review Labs Laboratory Tests 12/16/21 16:10: Glucometer 225H 12/16/21 16:33: White Blood Count 8.9, Red Blood Count 3.94L, Hemoglobin 10.3L, Hematocrit 34L, Mean Corpuscular Volume 85, Mean Corpuscular Hemoglobin 26, Mean Corpuscular Hemoglobin Concent 31L, Red Cell Distribution Width 15.9H, Platelet Count 350, Mean Platelet Volume 9.8, Immature Granulocyte % (Auto) 0, Neutrophils (%) (Auto) 68, Lymphocytes (%) (Auto) 14, Monocytes (%) (Auto) 10, Eosinophils (%) (Auto) 7, Basophils (%) (Auto) 1, Neutrophils # (Auto) 6.0, Lymphocytes # (Auto) 1.3, Monocytes # (Auto) 0.9, Eosinophils # (Auto) 0.6H, Basophils # (Auto) 0.1, Immature Granulocyte # (Auto) 0.0, Prothrombin Time 75.9*H, INR Comment 9.3*H, Sodium Level 137, Potassium Level 3.4L, Chloride Level 101, Carbon Dioxide Level 25, Anion Gap 11, Blood Urea Nitrogen 21H, Creatinine 1.67H, Estimat Glomerular Filtration Rate 47, BUN/Creatinine Ratio 13, Glucose Level 243H, Calcium Level 8.9, Corrected Calcium 9.1, Total Bilirubin 0.3, Aspartate Amino Transf (AST/SGOT) 11, Alanine Aminotransferase (ALT/SGPT) 10, Alkaline Phosphatase 72, Total Protein 6.8, Albumin 3.7 Laboratory Tests 12/16/21 16:33 A/P-Cardiology Assessment/Admission Diagnosis Supra-therapeutic INR Hypertension Cardioresp arrest and aspiration pneumonia in February 2021 (managed at [facility]) - Echo of 05/18/21: LVEF 50-55%, grade 1 schmidt dysfunction, mod RV and mod to sev LA enlargement Mild cognitive dysunction since cardio resp arrest, as reported by his - CT head at [place] on 03/03/20: punctate foci of ischemia and findings suggestive of small vessel disease PAF diagnosed in February 2021 and treated with ext CV at [facility] - Holter of 05/18/21: NSR with evidence of SSS, average heart rate 71 bpm, no VT, no significant miguel - ILR implanted 06-01-21 - warfarin tx - managed by his PCP Exertional shortness of breath, chronic - Last echo on 03/23/21 at [facility]: LVEF 60%, mild to mod RV dilatation with preserved function, no thrombus, mod MR (EF reported to improved from a previous TTE of 03/11/21 and MR reported to be more significant). No wall motion abnormality reported on echo of 03/23/21 (were reported on echo of 03/11/21) CAD - s/p Promus element 3.5 x 24 mm stent to the proximal LAD on 05-14-2014. Last card cath of 10/20/15 showed mild to mod CAD, patent LAD stent, LVEF 50%, normal LVEDP, no significant MR - MPI of Jul 24, 2018 is indicative of a small to mod sized apical infarction. Apical hypokinesis. Mod cardiomegaly. LVEF 55% - Last heart cath at [facility] in February 2021. Details unavailable. Pt's reports a h/o PTCA - Most recent cardiac cath of 05-11-21 showed CAD consisting of 80% mid vessel stenosis of the left cx, just followed th origin of a large OM branch. Successful balloon angioplasty resulted in reduction of the stenosis to less than 20%. The LAD has a patent stent in its proximal portion and was exhibiting 70% to 80% distal stenosis, which was successfully stented with Sarah 2.25 x 12 mm stent that was deployed at 16 atmosphere with a final stent lumen size of 2. 58 mm. The RCA is previously known to be small and nondominant and could not be visualized on this study and may be occluded. The left cx artery is large and dominant. LVEF 50-55%. LVEDP 17 mmHg H/o small ascending thoracic aortic aneurysm on CT of 03/03/21 at [facility] Abnormal ECG: - ECG of 08/22/16 shows sinus rhythm with freq PACs, left axis dev, clockwise rotation of the heart, cannot exclude old ant SD Monoclonal B-cell lymphocytosis and lymphoma - followed by Oncology HTN - controlled HLP - statin therapy - managed by PCP DM II - not well controlled - managed by PCP Obesity - with BMI of approx 50 H/O ac renal failure - d/t rhabdomyolysis of undetermined etiology in the early according to the patient - d/t cardioresp arrest in February 2021 ([facility]) H/O bi-polar disorder - managed by PCP COPD - managed by PCP Sleep apnea - treated with CPAP Medication Intolerance - Intolerance to KRISTI secondary to cough Carotid dz - H/o L carotid stenting at [facility] in February 2020 (Dr Higuera) Chronic, bilateral leg swelling and intermittent venous ulcers - [facility] by [facility] - No significant obstructive PAD on seg pressures of 09/06/19 Discussion and Recomendations * Hold warfarin until INR returns to therapeutic. Then lower dose of warfarin. Monitor INR * Continue all other meds * Replenish K * Monitor labs ESPERANZA STANFORD MD FACP FAC CCDS Dec 16, 2021 17:25
[2021-12-16] MEDS ORDERED: KCL 20 MEQ TAB (K-DUR) PO ONE ×2 (17:30→17:40)
[2021-12-16] MEDS: inSUlin ASPART (NovoLOG) 1 UNIT/0.01 ML (CHARGE PER UNIT) SC SCH ×2 (17:48→23:10)
[2021-12-16] MEDS ORDERED: CRV25T PO (17:51)
[2021-12-16] MEDS ORDERED: NAPR-915 PO (17:55)
[2021-12-16] MEDS ORDERED: TRZ50T PO (17:58)
[2021-12-16] MEDS ORDERED: AMLO-251 PO (18:02)
[2021-12-16] MEDS ORDERED: INSU100I34 SQ (18:29)
[2021-12-16 19:18] VITALS: BP 129/66
[2021-12-16] MEDS: DOCUSATE SODIUM 100 MG (COLACE) CAP PO SCH (20:17)
[2021-12-16] MEDS: SENNOSIDES 8.6 MG (SENOKOT) TAB PO SCH (20:17)
[2021-12-16] MEDS ORDERED: RT-ALBUTEROL SULF 2.5 MG/3 ML PRE-MIX VIAL IH PRN (20:30)
[2021-12-16] MEDS ORDERED: oxyCODONE/APAP 5/325MG (PERCOCET 5) TABLET PO PRN (20:30)
[2021-12-16] MEDS ORDERED: NON-FORMULARY MEDICATION 1 EA EA (Hydroxyzine Pamoate 50 MG) PO PRN (20:30)
[2021-12-16] MEDS ORDERED: traZODone 50 MG (DESYREL) TAB PO SCH (21:00)
[2021-12-16] MEDS ORDERED: FLUTICASONE NASAL SPRAY (FLONASE) 16 GM BTL NS SCH (21:00)
[2021-12-16] MEDS ORDERED: NON-FORMULARY MEDICATION 1 EA EA (Sacubitril/Valsartan (Entresto 49 mg-51 mg Tablet) 1 TAB PO SCH (21:00)
[2021-12-16] MEDS ORDERED: NON-FORMULARY MEDICATION 1 EA EA (Liraglutide (Victoza 3-Pak) 1.2 MG) INJ SCH (21:00)
[2021-12-16] MEDS ORDERED: hydrOXYzine (VISTARIL/ATARAX) 25 MG capsule/tablet PO PRN (22:45)
[2021-12-16] MEDS ORDERED: PATIENT MAY USE OWN MED,SINGLE MED PO SCH ×3 (23:00)
[2021-12-16] MEDS: GABAPENTIN 300 MG (NEURONTIN) CAP PO SCH (23:07)
[2021-12-17] VITALS: BP 160/69
[2021-12-17] MEDS ORDERED: INSU100I14 SQ (00:10)
[2021-12-17 03:53] VITALS: BP 120/50
[2021-12-17] MEDS: inSUlin ASPART (NovoLOG) 1 UNIT/0.01 ML (CHARGE PER UNIT) SC SCH ×2 (05:53→11:33)
--- NOTE | 2021-12-17 06:07 | History & Physical-Hospitalist ---
History of Present Illness Date Seen 12/17/21 Attending Physician Juliet Be DO PCP Referring Physician Date of Admission Dec 16, 2021 at 15:49 Home Medications & Allergies Home Medications Reviewed patient Home Medication Reconciliation performed by pharmacy medication reconciliations mechatronics technician and/or nursing. Patients Allergies have been reviewed. Allergies Allergies Coded Allergies fluticasone furoate (Verified Allergy, Severe, Anaphylaxis, 02/25/21) vilanterol (Verified Allergy, Severe, Anaphylaxis, 02/25/21) insulin detemir (Verified Allergy, Intermediate, Vomiting, 02/25/21) Past Eojjobr-Ebcpew-Ynzqip Hx Patient Social History Tobacco Use?: No Smoking Status: Former Smoker Smokeless Tobacco Frequency: Never a User Use of E-Cig and/or Vaping dev: No Substance use?: No Alcohol Use?: No Pt feels they are or have been: No Immunizations Up To Date Date of Influenza Vaccine: Jun 25, 2021 Tetanus Booster (TDap): Unknown Hepatitis A: No Hepatitis B: No PED Vaccines UTD: No Date of Pneumonia Vaccine: Aug 19, 2014 Seasonal Allergies Seasonal Allergies: Yes Current Status Advance Directives: No Communicates: Verbally Primary Language: Citizen Of [place] Preferred Spoken Language: Citizen Of [place] Is interpretation needed?: No Sensory deficits: Hearing impairment Past Medical History Surgeries: Coronary Stent, Orthopedic Asthma, Pneumonia, Sleep Apnea Currently Using CPAP: Yes Currently Using BIPAP: No Atrial Fibrillation, Coronary Artery Disease, Heart Attack, High Cholesterol, Hypertension Seizure Disorder Sexually Transmitted Disease: No HIV/AIDS: No Renal Failure, UTI-Chronic Gastroesophageal Reflux Arthritis, Chronic Back Pain Diabetes, Insulin dep Hearing Impairment: Hard of Hearing Leukemia, Skin, Lymphoma Did You Recieve Any Treatments: Yes What Type of Treatment Did You: Chemotherapy, Surgical Intervention Anxiety, Bipolar Blood Disorders: No Adverse Reaction/Blood Tranf: No Past Medical History 1. DM 2. Bipolar Disorder 3. Personality Disorder 4. Obesity 5. Occasional Tobacco use- cigars 6. COPD with ADELA, using CPAP 7. B- Cell small lymphocytic lymphoma (previously evaluated by [facility] 2009 who recommended cessation of medications and follow up) Now following with Dr. Lawton 8. Migraines with [facility] (Dr. Daniels) 9. Possible seizure disorder (evaluated by Neurology with normal EEG) 10. Alcoholism- pt admits drinking at least 2-3 beers 3 days a week, however previously admitted to drinking daily 11. Impulse control disorder 12. Squamous cell carcinoma- sp resection 13. Basal cell carcinoma- sp resection 14. GERD with gastritis and duodenitis 15. HTN 16. HLP - has not filled his Lipitor since 01-06 17. ED 18. DDD 19: CAD Past Surgical History 1. Cardiac Cath 05-14-14 with PTCA to LAD using Promus 3.5x24mm stent, remaining 70% stenosis in OM, with small right. 2. Colonoscopy and EGD- [facility] 2009 3. Basal Cell carcinoma resected face 4. Squamous cell resected face 5. Left Carpal Tunnel 2000 6. Rt. knee arthroscopy 1993 and 2003 7. Cardiac Cath 06-24-14 by [facility] demonstrating patent stent 8. Colonoscopy 2013 [facility] Family Medical History Alcoholism G8 BROTHER Arthritis 19 FATHER Cataracts 19 FATHER Completed stroke 19 MOTHER Deafness or hearing loss 19 FATHER Diabetes mellitus 19 MOTHER Headache disorder 19 FATHER 19 MOTHER G8 BROTHER G8 SISTER Hypercholesterolemia 19 FATHER Hypertension 19 FATHER Prostate cancer G8 BROTHER Psychosocial problem 19 MOTHER Respiratory disorder 19 FATHER 19 MOTHER Visual disorder 19 MOTHER No Family History of: AIDS Abdominal aortic aneurysm [place]'s disease Alzheimer's disease Aphasia Asthma Cancer of mouth Cardiovascular disease Colon cancer Congenital disease Congenital heart disease Coronary thrombosis Cystic fibrosis Dementia Drug abuse Dysphasia Fibrocystic disease of breast Gastroenteritis Glaucoma Infertility Kidney disease Myocardial infarction Neoplasm Not obtainable due to adoption Osteoporosis Parkinson's disease Seizure disorder Severe allergy Thyroid disease Tuberculosis Cancer, Diabetes, Hypertension Physical Exam Physical Exam Vital Signs Vital Signs - First Documented 12/16/21 12/17/21 16:00 03:53 Temp 36.0 Pulse 52 Resp 20 B/P (MAP) 138/55 (82) Pulse Ox 94 O2 Delivery Room Air O2 Flow Rate 2.00 Capillary Refill : Height, Weight, BMI Height: 5'7.00" Weight: 352lbs. 8.0oz. [id number]; 50.43 BMI Method:Stated Results Results/Procedures Labs Laboratory Tests 12/16/21 16:33 12/17/21 06:20 Patient resulted labs reviewed. JULIET BE 25, 2022 06:07
[2021-12-17] MEDS: GABAPENTIN 300 MG (NEURONTIN) CAP PO SCH (06:23)
[2021-12-17 06:34] LABS: BASOPHILS # (AUTO) 0.1 10^3/uL (0.0-0.1); BASOPHILS % (AUTO) 1 % (0-10); EOSINOPHILS # (AUTO) 0.7 10^3/uL (0.0-0.3); EOSINOPHILS % (AUTO) 7 % (0-10); HEMATOCRIT 32 % (40-54); HEMOGLOBIN 9.7 g/dL (13.3-17.7); LYMPHOCYTES # (AUTO) 1.1 10^3/uL (1.0-4.0); LYMPHOCYTES % (AUTO) 11 % (12-44); MEAN CORPUSCULAR HEMOGLOBIN 26 pg (25-34); MEAN CORPUSCULAR HGB CONC 30 g/dL (32-36); MEAN CORPUSCULAR VOLUME 85 fL (80-99); MEAN PLATELET VOLUME 9.9 fL (9.0-12.2); MONOCYTES % (AUTO) 10 % (0-12); NEUTROPHILS # (AUTO) 7.1 10^3/uL (1.8-7.8); NEUTROPHILS % (AUTO) 71 % (42-75); PLATELET COUNT 330 10^3/uL (130-400)
[2021-12-17 06:47] LABS: INR 4.5 (0.8-1.4); PROTHROMBIN TIME PATIENT 43.2 SEC (12.2-14.7)
[2021-12-17 06:53] LABS: ALBUMIN 3.6 GM/DL (3.2-4.5); BILIRUBIN,TOTAL 0.3 MG/DL (0.1-1.0); CALCIUM 8.6 MG/DL (8.5-10.1); CREATININE SERUM 1.35 MG/DL (0.60-1.30); POTASSIUM 3.7 MMOL/L (3.6-5.0); TOTAL PROTEIN 6.5 GM/DL (6.4-8.2)
[2021-12-17] MEDS ORDERED: DIVALPROX SPRINKLE 125 MG (DEPAKOTE) CAP PO SCH (07:00)
[2021-12-17] MEDS ORDERED: inSUlin ASPART (NovoLOG) 1 UNIT/0.01 ML (CHARGE PER UNIT) SC SCH (07:00)
[2021-12-17] MEDS ORDERED: hydrALAZINE (APRESOLINE) 25 MG TAB PO SCH (07:00)
[2021-12-17 08:00] VITALS: BP 146/62
[2021-12-17] MEDS: SENNOSIDES 8.6 MG (SENOKOT) TAB PO SCH (08:18)
[2021-12-17] MEDS: DOCUSATE SODIUM 100 MG (COLACE) CAP PO SCH (08:18)
[2021-12-17] MEDS ORDERED: [UNRECOGNIZED DRUG - REMARK] PO SCH (09:00)
[2021-12-17] MEDS ORDERED: CLOPIDOGREL 75 MG (PLAVIX) TABLET PO SCH (09:00)
[2021-12-17] MEDS ORDERED: ALLOPURINOL 300 MG (ZYLOPRIM) TAB PO SCH (09:00)
[2021-12-17] MEDS ORDERED: amLODIPine 10 MG (NORVASC) TAB PO SCH (09:00)
[2021-12-17] MEDS ORDERED: TAMSULOSIN 0.4 MG (FLOMAX) CAP PO SCH (09:00)
[2021-12-17] MEDS ORDERED: KCL 10 MEQ TAB (MICRO K) PO SCH (09:00)
[2021-12-17] MEDS ORDERED: FLUoxetine HCL 20 MG (PROzac) CAP PO SCH (09:00)
[2021-12-17] MEDS ORDERED: EMPAGLIFLOZIN 10 MG TABLET (JARDIANCE) PO SCH (09:00)
[2021-12-17] MEDS ORDERED: ASPIRIN E.C. 81 MG (ECOTRIN) TAB PO SCH (09:00)
[2021-12-17] MEDS ORDERED: TORSEMIDE 20 MG (DEMADEX) TAB PO SCH (09:00)
[2021-12-17] MEDS ORDERED: [UNRECOGNIZED DRUG - REMARK] INJ SCH (09:00)
[2021-12-17] MEDS ORDERED: PANTOPRAZOLE 40 MG (PROTONIX) TAB PO SCH (09:00)
[2021-12-17] MEDS ORDERED: ISOSORBIDE MONONITRATE 60 MG (IMDUR) TAB PO SCH (09:00)
--- NOTE | 2021-12-17 09:27 | Wound Care Assessment ---
Wound Care Assessment Date Seen by Provider: Dec 17, 2021 Time Seen by Provider: 09:22 Chief Complaint Numerous abrasions on upper and lower extremities HPI This pleasant 56 year old gentleman was working in his yard and developed numerous shallow scratches and abrasions over the weekend. He notes that despite trying pressure dressings they would not stop "oozing". He is on coumadin and plavix per records and upon lab check was noted to have INR of 9.3 (down to 4.5 this a.m.). He continues to have some wounds with slow bleeding and some are improving and have stopped bleeding. He does have a h/o DM2 with poor blood sugar control (his primary physician is working with him). He also has numerous cardiac issues including atrial fibrillation. He actually had cardiac arrest in February. Hgb is slightly lower this a.m. (9.7) but is still not concerning despite the bleeding wounds. Plan will be for monitoring of infection, improvement in INR (which should resolve bleeding issues) and non-adherent dressings to avoid disrupting hemostasis. Plan for xeroform with Telfa to all open, bleeding wounds with roller gauze and tubigrip as indicated to aide in keeping dressing in place. Care to not disrupt any stable eschar (may protect with bordered foam or tubigrip as well) while his bleeding issues are being resolved by the capable care of his primary and cardiology providers. Past Medical History: Admits Diabetes Type II, Admits Heart Disease, Admits Peripheral Artery Disease, Admits Cancer, Treaments h/o B cell lymphoma, morbid obesity (BMI 50), COPD, carotid artery disease, h/o VLU and venous stasis with lymphedema, overuse of alcohol, cigar smoking Smoking Status: Current Someday Smoker Alcohol Use: Regular Use Review of Systems General: Other (Obesity) Cardiovascular: Edema Exam Vital Signs Date Time Temp Pulse Resp B/P (MAP) Pulse Ox O2 Delivery O2 Flow Rate FiO2 12/17/21 08:00 36.3 52 20 146/62 (90) 96 Room Air 12/17/21 03:53 2.00 Capillary Refill : General Appearance: no apparent distress, obese Neck: full range of motion Cardiovascular: other (1+ edema b/l LE) Respiratory: no respiratory distress, no accessory muscle use Extremities: normal range of motion, pedal edema Neurologic/Psychiatric: alert, normal mood/affect, oriented x 3 Skin: normal color, warm/dry Skin Character: other Wound assessment: Multiple abrasions and scratches (partial thickness) to bilateral lower extremities and upper extremities. Some still with slow bleeding (ryder. LUE). These are not measured due to quantity and nature of acute wounds. Results Laboratory Tests 12/16/21 16:10: Glucometer 225H 12/16/21 16:33: White Blood Count 8.9, Red Blood Count 3.94L, Hemoglobin 10.3L, Hematocrit 34L, Mean Corpuscular Volume 85, Mean Corpuscular Hemoglobin 26, Mean Corpuscular Hemoglobin Concent 31L, Red Cell Distribution Width 15.9H, Platelet Count 350, Mean Platelet Volume 9.8, Immature Granulocyte % (Auto) 0, Neutrophils (%) (Auto) 68, Lymphocytes (%) (Auto) 14, Monocytes (%) (Auto) 10, Eosinophils (%) (Auto) 7, Basophils (%) (Auto) 1, Neutrophils # (Auto) 6.0, Lymphocytes # (Auto) 1.3, Monocytes # (Auto) 0.9, Eosinophils # (Auto) 0.6H, Basophils # (Auto) 0.1, Immature Granulocyte # (Auto) 0.0, Prothrombin Time 75.9*H, INR Comment 9.3*H, Sodium Level 137, Potassium Level 3.4L, Chloride Level 101, Carbon Dioxide Level 25, Anion Gap 11, Blood Urea Nitrogen 21H, Creatinine 1.67H, Estimat Glomerular Filtration Rate 47, BUN/Creatinine Ratio 13, Glucose Level 243H, Calcium Level 8.9, Corrected Calcium 9.1, Total Bilirubin 0.3, Aspartate Amino Transf (AST/SGOT) 11, Alanine Aminotransferase (ALT/SGPT) 10, Alkaline Phosphatase 72, Total Protein 6.8, Albumin 3.7 12/16/21 20:03: Glucometer 202H 12/17/21 05:20: Glucometer 118H 12/17/21 06:20: White Blood Count 10.0, Red Blood Count 3.75L, Hemoglobin 9.7L, Hematocrit 32L, Mean Corpuscular Volume 85, Mean Corpuscular Hemoglobin 26, Mean Corpuscular Hem oglobin Concent 30L, Red Cell Distribution Width 15.9H, Platelet Count 330, Mean Platelet Volume 9.9, Immature Granulocyte % (Auto) 0, Neutrophils (%) (Auto) 71, Lymphocytes (%) (Auto) 11L, Monocytes (%) (Auto) 10, Eosinophils (%) (Auto) 7, Basophils (%) (Auto) 1, Neutrophils # (Auto) 7.1, Lymphocytes # (Auto) 1.1, Monocytes # (Auto) 1.0, Eosinophils # (Auto) 0.7H, Basophils # (Auto) 0.1, Immature Granulocyte # (Auto) 0.0, Prothrombin Time 43.2H, INR Comment 4.5H, Sodium Level 143, Potassium Level 3.7, Chloride Level 107, Carbon Dioxide Level 26, Anion Gap 10, Blood Urea Nitrogen 19H, Creatinine 1.35H, Estimat Glomerular Filtration Rate 61, BUN/Creatinine Ratio 14, Glucose Level 146H, Calcium Level 8.6, Corrected Calcium 8.9, Total Bilirubin 0.3, Aspartate Amino Transf (AST/SGOT) 17, Alanine Aminotransferase (ALT/SGPT) 11, Alkaline Phosphatase 68, Total Protein 6.5, Albumin 3.6 Assessment/Plan/Dx Assessment: 1. Multiple partial thickness abrasions/lacerations of extremities with slow active bleeding (improving) 2. Elevated INR in setting of chronic anticoagulation 3. Venous hypertension with h/o VLU (no chronic wounds currently) 4. Morbid obesity 5. Lower extremity edema Plan: 1. Any open, bleeding wound: Cleanse daily with NS or wound cleanser, cover with xeroform and non-adherent dressing (Telfa), cover with roller gauze and secure with tape. May cover with single lo tubigrip to assist in securing dressing as well if desired. Change daily and prn if soaked. 2. Any closed wound with stable eschar: monitor closely for new bleeding. May cover with bordered foam dressing (allevyn) if desired and single lo tubigrip for further protection if desired. Be certain to monitor closely for new ble eding 3. I do suspect the wounds will begin to heal once his elevated INR is corrected, but I am happy to see him in the outpatient setting (upon d/c) if any do fail to heal as expected. 4. Thank you for this consult and do not hesitate to call with questions. CHAN ALEXANDRA MD Dec 17, 2021 09:27
--- NOTE | 2021-12-17 09:55 | Progress Note - Cardiology ---
Cardiology SOAP Progress Note Subjective: Sitting up in recliner at the bedside Abrasions that were bleeding yesterday have improved No c/o CP or SOB Objective: I&O/Vital Signs 12/17/21 12/17/21 12/17/21 12/17/21 00:00 01:00 03:53 07:00 Temp 36.1 Pulse 70 51 56 Resp 18 B/P (MAP) () 120/50 (73) Pulse Ox 95 O2 Delivery Room Air Nasal Cannula O2 Flow Rate 2.00 12/17/21 12/17/21 08:00 08:00 Temp 36.3 Pulse 52 Resp 20 B/P (MAP) 146/62 (90) Pulse Ox 96 96 O2 Delivery Room Air Room Air O2 Flow Rate 2.00 12/17/21 00:00 Intake Total 600 ml Balance 600 ml Weight (Pounds): 352 Weight (Ounces): 8.0 Weight (Calculated Kilograms): 159.336912 Constitutional: AAO x 3, well-developed, well-nourished Respiratory: No accessory muscle use; other (good, bilateral air entry) Cardiovascular: regular rate-rhythm, S1 and S2, systolic murmur (soft LILLIE at card base) Gastrointestional: No tender; soft; No guarding, No rebound; audible bowel sounds Extremities: swelling (mild, bilat leg swelling); No clubbing, No cyanosis Neurologic/Psychiatric: oriented x 3, other (moves all limbs equally) Skin: other (forearms and lower leg under dressing) Results/Procedures: Labs Laboratory Tests 12/16/21 16:10: Glucometer 225H 12/16/21 16:33: White Blood Count 8.9, Red Blood Count 3.94L, Hemoglobin 10.3L, Hematocrit 34L, Mean Corpuscular Volume 85, Mean Corpuscular Hemoglobin 26, Mean Corpuscular Hemoglobin Concent 31L, Red Cell Distribution Width 15.9H, Platelet Count 350, Mean Platelet Volume 9.8, Immature Granulocyte % (Auto) 0, Neutrophils (%) (Auto) 68, Lymphocytes (%) (Auto) 14, Monocytes (%) (Auto) 10, Eosinophils (%) (Auto) 7, Basophils (%) (Auto) 1, Neutrophils # (Auto) 6.0, Lymphocytes # (Auto) 1.3, Monocytes # (Auto) 0.9, Eosinophils # (Auto) 0.6H, Basophils # (Auto) 0.1, Immature Granulocyte # (Auto) 0.0, Prothrombin Time 75.9*H, INR Comment 9.3*H, Sodium Level 137, Potassium Level 3.4L, Chloride Level 101, Carbon Dioxide Level 25, Anion Gap 11, Blood Urea Nitrogen 21H, Creatinine 1.67H, Estimat Glomerular Filtration Rate 47, BUN/Creatinine Ratio 13, Glucose Level 243H, Calcium Level 8.9, Corrected Calcium 9.1, Total Bilirubin 0.3, Aspartate Amino Transf (AST/SGOT) 11, Alanine Aminotransferase (ALT/SGPT) 10, Alkaline Phosphatase 72, Total Protein 6.8, Albumin 3.7 12/16/21 20:03: Glucometer 202H 12/17/21 05:20: Glucometer 118H 12/17/21 06:20: White Blood Count 10.0, Red Blood Count 3.75L, Hemoglobin 9.7L, Hematocrit 32L, Mean Corpuscular Volume 85, Mean Corpuscular Hemoglobin 26, Mean Corpuscular Hemoglobin Concent 30L, Red Cell Distribution Width 15.9H, Platelet Count 330, Mean Platelet Volume 9.9, Immature Granulocyte % (Auto) 0, Neutrophils (%) (Auto) 71, Lymphocytes (%) (Auto) 11L, Monocytes (%) (Auto) 10, Eosinophils (%) (Auto) 7, Basophils (%) (Auto) 1, Neutrophils # (Auto) 7.1, Lymphocytes # (Auto) 1.1, Monocytes # (Auto) 1.0, Eosinophils # (Auto) 0.7H, Basophils # (Auto) 0.1, Immature Granulocyte # (Auto) 0.0, Prothrombin Time 43.2H, INR Comment 4.5H, Sodium Level 143, Potassium Level 3.7, Chloride Level 107, Carbon Dioxide Level 26, Anion Gap 10, Blood Urea Nitrogen 19H, Creatinine 1.35H, Estimat Glomerular Filtration Rate 61, BUN/Creatinine Ratio 14, Glucose Level 146H, Calcium Level 8.6, Corrected Calcium 8.9, Total Bilirubin 0.3, Aspartate Amino Transf (AST/SGOT) 17, Alanine Aminotransferase (ALT/SGPT) 11, Alkaline Phosphatase 68, Total Protein 6.5, Albumin 3.6 Laboratory Tests 12/16/21 16:33 12/17/21 06:20 A/P: Assessment: Supra-therapeutic INR - received VIT K 12.5 mg total dose yesterday - improving Hypertension Cardioresp arrest and aspiration pneumonia in February 2021 (managed at [facility]) - Echo of 05/18/21: LVEF 50-55%, grade 1 schmidt dysfunction, mod RV and mod to sev LA enlargement Mild cognitive dysunction since cardio resp arrest, as reported by his - CT head at [place] on 03/03/20: punctate foci of ischemia and findings suggestive of small vessel disease PAF diagnosed in February 2021 and treated with ext CV at [facility] - Holter of 05/18/21: NSR with evidence of SSS, average heart rate 71 bpm, no VT, no significant miguel - ILR implanted 06-01-21 - warfarin tx - managed by his PCP Exertional shortness of breath, chronic - Last echo on 03/23/21 at [facility]: LVEF 60%, mild to mod RV dilatation with preserved function, no thrombus, mod MR (EF reported to improved from a previous TTE of 03/11/21 and MR reported to be more significant). No wall motion abnormality reported on echo of 03/23/21 (were reported on echo of 03/11/21) CAD - s/p Promus element 3.5 x 24 mm stent to the proximal LAD on 05-14-2014. Last card cath of 10/20/15 showed mild to mod CAD, patent LAD stent, LVEF 50%, normal LVEDP, no significant MR - MPI of Jul 24, 2018 is indicative of a small to mod sized apical infarction. Apical hypokinesis. Mod cardiomegaly. LVEF 55% - Last heart cath at [facility] in February 2021. Details unavailable. Pt's reports a h/o PTCA - Most recent cardiac cath of 05-11-21 showed CAD consisting of 80% mid vessel stenosis of the left cx, just followed th origin of a large OM branch. Successful balloon angioplasty resulted in reduction of the stenosis to less than 20%. The LAD has a patent stent in its proximal portion and was exhibiting 70% to 80% distal stenosis, which was successfully stented with Sarah 2.25 x 12 mm stent that was deployed at 16 atmosphere with a final stent lumen size of 2.58 mm. The RCA is previously known to be small and nondominant and could not be visualized on this study and may be occluded. The left cx artery is large and dominant. LVEF 50-55%. LVEDP 17 mmHg H/o small ascending thoracic aortic aneurysm on CT of 03/03/21 at [facility] Abnormal ECG: - ECG of 08/22/16 shows sinus rhythm with freq PACs, left axis dev, clockwise rotation of the heart, cannot exclude old ant ID Monoclonal B-cell lymphocytosis and lymphoma - followed by Oncology HTN - controlled HLP - statin therapy - managed by PCP DM II - not well controlled - managed by PCP Obesity - with BMI of approx 50 H/O ac renal failure - d/t rhabdomyolysis of undetermined etiology in the early according to the patient - d/t cardioresp arrest in February 2021 ([facility]) H/O bi-polar disorder - managed by PCP COPD - managed by PCP Sleep apnea - treated with CPAP Medication Intolerance - Intolerance to KRISTI secondary to cough Carotid dz - H/o L carotid stenting at [facility] in February 2020 (Dr Higuera) Chronic, bilateral leg swelling and intermittent venous ulcers - [facility] by [facility] - No significant obstructive PAD on seg pressures of 09/06/19 Plan: * Hold warfarin until INR comes down to 2.0, then start Xarelto 20 mg daily * Family and patient would like to change to NOAC d/t difficulty with warfarin INR management (being done by [facility]) - cost is concern for them - discussed OAC with Xarelto d/t Rx assistance program through [employer] which would make the medication affordable, they are agreeable * Continue all other meds * Monitor labs * OK to discharge home from cardiac stand point * Advise f/u in 1 week at our office JANICE MURDOCK Dec 17, 2021 09:55
[2021-12-17] MEDS ORDERED: RT-ALBUINH INH (10:09)
[2021-12-17] MEDS ORDERED: ASPI-999 PO (10:09)
[2021-12-17] MEDS ORDERED: OXYC1TAB15 PO (10:09)
[2021-12-17] MEDS ORDERED: POTA10TA37 PO (10:09)
[2021-12-17] MEDS ORDERED: NAPR-915 PO (10:09)
[2021-12-17] MEDS ORDERED: CLOP75TA69 PO (10:09)
[2021-12-17] MEDS ORDERED: WARF7.5T3 PO (10:09)
[2021-12-17] MEDS ORDERED: UMEC62.5 INH (10:21)
[2021-12-17] MEDS ORDERED: RIVA20TA PO (10:56)
--- NOTE | 2021-12-17 11:13 | Short Stay Summary-Hospitalist ---
History of Present Illness HPI/Chief Complaint CC: Elevated INR from Coumadin toxicity and bleeding from wounds HPI: 56 yr old WM with complex cardiac history status post cardiac arrest one year ago. He sees Dr. Rendon. He presented to the [facility] with bleeding from mul tiple wounds on his body. He was found to have an INR of 10.8. Repeat was 10.3. So pt was given one unit of FFP and Vitamin K at 2.5 mg PO and subQ. His subsequent INR was 4.5. Dr. Rendon sent in the Xarelto that he will get. Pt will stop Coumadin. He will check INR on Monday and start that on Monday afternoon. Source: patient, RN/MD, old records Exam Limitations: no limitations Date Seen 12/17/21 Time Seen by a Provider: 11:00 Attending Physician Juliet Oliver DO PCP Referring Physician Date of Admission Dec 16, 2021 at 15:49 Home Medications & Allergies Home Medications Reviewed patient Home Medication Reconciliation performed by pharmacy medication reconciliations mathematical technician and/or nursing. Patients Allergies have been reviewed. Allergies Allergies Coded Allergies fluticasone furoate (Verified Allergy, Severe, Anaphylaxis, 02/25/21) vilanterol (Verified Allergy, Severe, Anaphylaxis, 02/25/21) insulin detemir (Verified Allergy, Intermediate, Vomiting, 02/25/21) Past Skoojcw-Waastb-Yiodoa Hx Patient Social History Marrital Status: Employed/Student: unemployed Tobacco Use?: No Smoking Status: Current Someday Smoker Smokeless Tobacco Frequency: Never a User Use of E-Cig and/or Vaping dev: No Substance use?: No Alcohol Use?: No Pt feels they are or have been: No Immunizations Up To Date Date of Influenza Vaccine: Jun 25, 2021 Tetanus Booster (TDap): Unknown Hepatitis A: No Hepatitis B: No PED Vaccines UTD: No Date of Pneumonia Vaccine: Aug 19, 2014 Seasonal Allergies Seasonal Allergies: Yes Current Status Advance Directives: No Communicates: Verbally Primary Language: [place] Preferred Spoken Language: [place] Is interpretation needed?: No Sensory deficits: Hearing impairment Past Medical History Surgeries: Coronary Stent, Orthopedic Asthma, Pneumonia, Sleep Apnea Currently Using CPAP: Yes Currently Using BIPAP: No Atrial Fibrillation, Coronary Artery Disease, Heart Attack, High Cholesterol, Hypertension Seizure Disorder Sexually Transmitted Disease: No HIV/AIDS: No Renal Failure, UTI-Chronic Gastroesophageal Reflux Arthritis, Chronic Back Pain Diabetes, Insulin dep Hearing Impairment: Hard of Hearing Leukemia, Skin, Lymphoma Did You Recieve Any Treatments: Yes What Type of Treatment Did You: Chemotherapy, Surgical Intervention Anxiety, Bipolar Blood Disorders: No Adverse Reaction/Blood Tranf: No Past Medical History 1. DM 2. Bipolar Disorder 3. Personality Disorder 4. Obesity 5. Occasional Tobacco use- cigars 6. COPD with ADELA, using CPAP 7. B- Cell small lymphocytic lymphoma (previously evaluated by [facility] 2008 who recommended cessation of medications and follow up) Now following with Dr. Lawton 8. Migraines with [facility] (Dr. Daniels) 9. Possible seizure disorder (evaluated by Neurology with normal EEG) 10. Alcoholism- pt admits drinking at least 2-3 beers 3 days a week, however previously admitted to drinking daily 11. Impulse control disorder 12. Squamous cell carcinoma- sp resection 13. Basal cell carcinoma- sp resection 14. GERD with gastritis and duodenitis 15. HTN 16. HLP - has not filled his Lipitor since 01-06 17. ED 18. DDD 19: CAD Past Surgical History 1. Cardiac Cath 05-14-14 with PTCA to LAD using Promus 3.5x24mm stent, remaining 70% stenosis in OM, with small right. 2. Colonoscopy and EGD- [facility] 2009 3. Basal Cell carcinoma resected face 4. Squamous cell resected face 5. Left Carpal Tunnel 2000 6. Rt. knee arthroscopy 1993 and 2003 7. Cardiac Cath 06-24-14 by [facility] demonstrating patent stent 8. Colonoscopy 2013 [facility] Family Medical History Alcoholism G8 BROTHER Arthritis 19 FATHER Cataracts 19 FATHER Completed stroke 19 MOTHER Deafness or hearing loss 19 FATHER Diabetes mellitus 19 MOTHER Headache disorder 19 FATHER 19 MOTHER G8 BROTHER G8 SISTER Hypercholesterolemia 19 FATHER Hypertension 19 FATHER Prostate cancer G8 BROTHER Psychosocial problem 19 MOTHER Respiratory disorder 19 FATHER 19 MOTHER Visual disorder 19 MOTHER No Family History of: AIDS Abdominal aortic aneurysm Boundary's disease Alzheimer's disease Aphasia Asthma Cancer of mouth Cardiovascular disease Colon cancer Congenital disease Congenital heart disease Coronary thrombosis Cystic fibrosis Dementia Drug abuse Dysphasia Fibrocystic disease of breast Gastroenteritis Glaucoma Infertility Kidney disease Myocardial infarction Neoplasm Not obtainable due to adoption Osteoporosis Parkinson's disease Seizure disorder Severe allergy Thyroid disease Tuberculosis Cancer, Diabetes, Hypertension Review of Systems Constitutional: see HPI, malaise, weakness EENTM: no symptoms reported Respiratory: dyspnea on exertion Cardiovascular: no symptoms reported Gastrointestinal: no symptoms reported Genitourinary: no symptoms reported Musculoskeletal: no symptoms reported Skin: no symptoms reported Psychiatric/Neurological: No Symptoms Reported All Other Systems Reviewed Negative Unless Noted: Yes Physical Exam Physical Exam Vital Signs Vital Signs - First Documented 12/16/21 12/17/21 16:00 03:53 Temp 36.0 Pulse 52 Resp 20 B/P (MAP) 138/55 (82) Pulse Ox 94 O2 Delivery Room Air O2 Flow Rate 2.00 Capillary Refill : Height, Weight, BMI Height: 5'7.00" Weight: 352lbs. 8.0oz. 159.701894np; 50.43 BMI Method:Stated General Appearance: No Apparent Distress, WD/WN, Chronically ill, Obese Eyes: Bilateral Eye Normal Inspection, Bilateral Eye PERRL HEENT: PERRL/EOMI, Normal ENT Inspection, Pharynx Normal Neck: Full Range of Motion, Normal Inspection, Non Tender, Supple, Carotid Bruit Respiratory: Chest Non Tender, Lungs Clear, Normal Breath Sounds, No Accessory Muscle Use, No Respiratory Distress Cardiovascular: Regular Rate, Rhythm, No Edema, No Gallop, No JVD, No Murmur, Normal Peripheral Pulses Gastrointestinal: Normal Bowel Sounds, No Organomegaly, No Pulsatile Mass, Non Tender, Soft Back: Normal Inspection, No CVA Tenderness, No Vertebral Tenderness Extremity: Normal Capillary Refill, Normal Inspection, Normal Range of Motion, Non Tender, No Calf Tenderness, No Pedal Edema Neurologic/Psychiatric: Alert, Oriented x3, No Motor/Sensory Deficits, Normal Mood/Affect Skin: Normal Color, Warm/Dry Lymphatic: No Adenopathy Results Results/Procedures Labs Laboratory Tests 12/16/21 16:33 12/17/21 06:20 Patient resulted labs reviewed. Short Stay Diagnosis Discharge Diagnosis-Short Stay Admission Diagnosis Assessment: Coumadin toxicity Bleeding wounds CHF CAD COPD ADELA Final Discharge Diagnosis Assessment: Coumadin toxicity Bleeding wounds CHF CAD COPD ADELA Conclusion Plan Plan: JULIET Gardner DO Dec 17, 2021 11:13
--- NOTE | 2021-12-17 11:21 | Progress Note - Cardiology ---
Cardiology SOAP Progress Note Subjective: Gen malaise and weakness present Chronic, moderate, exertional shortness of breath No cp No n/v/d Objective: I&O/Vital Signs 12/17/21 12/17/21 12/17/21 12/17/21 00:00 01:00 03:53 07:00 Temp 36.1 Pulse 70 51 56 Resp 18 B/P (MAP) () 120/50 (73) Pulse Ox 95 O2 Delivery Room Air Nasal Cannula O2 Flow Rate 2.00 12/17/21 12/17/21 12/17/21 08:00 08:00 10:55 Temp 36.3 Pulse 52 Resp 20 B/P (MAP) 146/62 (90) Pulse Ox 96 96 95 O2 Delivery Room Air Room Air Nasal Cannula O2 Flow Rate 2.00 2.00 12/17/21 00:00 Intake Total 600 ml Balance 600 ml Weight (Pounds): 352 Weight (Ounces): 8.0 Weight (Calculated Kilograms): 159.129544 Constitutional: AAO x 3, well-developed, well-nourished Respiratory: No accessory muscle use; other (good, bilateral air entry) Cardiovascular: regular rate-rhythm, S1 and S2, systolic murmur (soft LILLIE at card base) Gastrointestional: No tender; soft; No guarding, No rebound; audible bowel sounds Extremities: swelling (mild, bilat leg swelling); No clubbing, No cyanosis Neurologic/Psychiatric: oriented x 3, other (moves all limbs equally) Skin: other (forearms and lower leg under dressing) Results/Procedures: Labs Laboratory Tests 12/16/21 16:10: Glucometer 225H 12/16/21 16:33: White Blood Count 8.9, Red Blood Count 3.94L, Hemoglobin 10.3L, Hematocrit 34L, Mean Corpuscular Volume 85, Mean Corpuscular Hemoglobin 26, Mean Corpuscular Hemoglobin Concent 31L, Red Cell Distribution Width 15.9H, Platelet Count 350, Mean Platelet Volume 9.8, Immature Granulocyte % (Auto) 0, Neutrophils (%) (Auto) 68, Lymphocytes (%) (Auto) 14, Monocytes (%) (Auto) 10, Eosinophils (%) (Auto) 7, Basophils (%) (Auto) 1, Neutrophils # (Auto) 6.0, Lymphocytes # (Auto) 1.3, Monocytes # (Auto) 0.9, Eosinophils # (Auto) 0.6H, Basophils # (Auto) 0.1, Immature Granulocyte # (Auto) 0.0, Prothrombin Time 75.9*H, INR Comment 9.3*H, Sodium Level 137, Potassium Level 3.4L, Chloride Level 101, Carbon Dioxide Level 25, Anion Gap 11, Blood Urea Nitrogen 21H, Creatinine 1.67H, Estimat Glomerular Filtration Rate 47, BUN/Creatinine Ratio 13, Glucose Level 243H, Calcium Level 8.9, Corrected Calcium 9.1, Total Bilirubin 0.3, Aspartate Amino Transf (AST/SGOT) 11, Alanine Aminotransferase (ALT/SGPT) 10, Alkaline Phosphatase 72, Total Protein 6.8, Albumin 3.7 12/16/21 20:03: Glucometer 202H 12/17/21 05:20: Glucometer 118H 12/17/21 06:20: White Blood Count 10.0, Red Blood Count 3.75L, Hemoglobin 9.7L, Hematocrit 32L, Mean Corpuscular Volume 85, Mean Corpuscular Hemoglobin 26, Mean Corpuscular Hemoglobin Concent 30L, Red Cell Distribution Width 15.9H, Platelet Count 330, Mean Platelet Volume 9.9, Immature Granulocyte % (Auto) 0, Neutrophils (%) (Auto) 71, Lymphocytes (%) (Auto) 11L, Monocytes (%) (Auto) 10, Eosinophils (%) (Auto) 7, Basophils (%) (Auto) 1, Neutrophils # (Auto) 7.1, Lymphocytes # (Auto) 1.1, Monocytes # (Auto) 1.0, Eosinophils # (Auto) 0.7H, Basophils # (Auto) 0.1, Immature Granulocyte # (Auto) 0.0, Prothrombin Time 43.2H, INR Comment 4.5H, Sodium Level 143, Potassium Level 3.7, Chloride Level 107, Carbon Dioxide Level 26, Anion Gap 10, Blood Urea Nitrogen 19H, Creatinine 1.35H, Estimat Glomerular Filtration Rate 61, BUN/Creatinine Ratio 14, Glucose Level 146H, Calcium Level 8.6, Corrected Calcium 8.9, Total Bilirubin 0.3, Aspartate Amino Transf (AST/SGOT) 17, Alanine Aminotransferase (ALT/SGPT) 11, Alkaline Phosphatase 68, Total Protein 6.5, Albumin 3.6 12/17/21 10:45: Glucometer 145H Laboratory Tests 12/16/21 16:33 12/17/21 06:20 A/P: Assessment: Supra-therapeutic INR - received VIT K 12.5 mg total dose on 12/16/21 Hypertension Cardioresp arrest and aspiration pneumonia in February 2021 (managed at [facility]) - Echo of 05/18/21: LVEF 50-55%, grade 1 schmidt dysfunction, mod RV and mod to sev LA enlargement Mild cognitive dysunction since cardio resp arrest, as reported by his - CT head at [place] on 03/03/20: punctate foci of ischemia and findings suggestive of small vessel disease PAF diagnosed in February 2021 and treated with ext CV at [facility] - Holter of 05/18/21: NSR with evidence of SSS, average heart rate 71 bpm, no VT, no significant miguel - ILR implanted 06-01-21 - warfarin tx - managed by his PCP Exertional shortness of breath, chronic - Last echo on 03/23/[address] [facility]: LVEF 60%, mild to mod RV dilatation with preserved function, no thrombus, mod MR (EF reported to improved from a previous TTE of 03/11/21 and MR reported to be more significant). No wall motion abnormality reported on echo of 03/23/21 (were reported on echo of 03/11/21) CAD - s/p Promus element 3.5 x 24 mm stent to the proximal LAD on 05-14-2014. Last card cath of 10/20/15 showed mild to mod CAD, patent LAD stent, LVEF 50%, normal LVEDP, no significant MR - MPI of Jul 24, 2018 is indicative of a small to mod sized apical infarction. Apical hypokinesis. Mod cardiomegaly. LVEF 55% - Last heart cath at [facility] in February 2021. Details unavailable. Pt's reports a h/o PTCA - Most recent cardiac cath of 05-11-21 showed CAD consisting of 80% mid vessel stenosis of the left cx, just followed th origin of a large OM branch. Successful balloon angioplasty resulted in reduction of the stenosis to less than 20%. The LAD has a patent stent in its proximal portion and was exhibiting 70% to 80% distal stenosis, which was successfully stented with Sarah 2.25 x 12 mm stent that was deployed at 16 atmosphere with a final stent lumen size of 2.58 mm. The RCA is previously known to be small and nondominant and could not be visualized on this study and may be occluded. The left cx artery is large and dominant. LVEF 50-55%. LVEDP 17 mmHg H/o small ascending thoracic aortic aneurysm on CT of 03/03/21 at [facility] Abnormal ECG: - ECG of 08/22/16 shows sinus rhythm with freq PACs, left axis dev, clockwise rotation of the heart, cannot exclude old ant [place] Monoclonal B-cell lymphocytosis and lymphoma - followed by [facility] HTN - controlled HLP - statin therapy - managed by PCP DM II - not well controlled - managed by PCP Obesity - with BMI of approx 50 H/O ac renal failure - d/t rhabdomyolysis of undetermined etiology in the early according to the patient - d/t cardioresp arrest in February 2021 ([facility]) H/O bi-polar disorder - managed by PCP COPD - managed by PCP Sleep apnea - treated with CPAP Medication Intolerance - Intolerance to KRISTI secondary to cough Carotid dz - H/o L carotid stenting at [facility] in February 2020 (Dr Higuera) Chronic, bilateral leg swelling and intermittent venous ulcers - managed by [facility] - No significant obstructive PAD on seg pressures of 09/06/19 Plan: * Hold warfarin until INR comes down to 2.0, then start Xarelto 20 mg daily * Family and patient would like to change to NOAC d/t difficulty with warfarin INR management (being done by [facility]) - cost is concern for them - discussed OAC with Xarelto d/t Rx assistance program through [employer] which would make the medication affordable, they are agreeable * Continue all other meds * Monitor labs * OK to discharge home from cardiac stand point * Advise f/u in 1 week at our office ESPERANZA STANFORD MD FACP FAC CCDS Dec 17, 2021 11:21
[2021-12-17 11:45] VITALS: BP 146/62
[2021-12-17 12:00] VITALS: BP 127/65
[2021-12-17] MEDS ORDERED: [UNRECOGNIZED DRUG - REMARK] SQ SCH (21:00)
== END 2021-12-17 12:05 | disposition home or self-care (01) ==
LOC: 4TH 15:49
PROVIDERS: ADMIT Internal Medicine; ATTEND Internal Medicine
DX: T45.515A Adverse effect of anticoagulants, initial encounter (principal); T14.8XXA Other injury of unspecified body region, initial encounter; I11.0 Hypertensive heart disease with heart failure; I50.9 Heart failure, unspecified; G47.33 Obstructive sleep apnea (adult) (pediatric); I25.10 Atherosclerotic heart disease of native coronary artery without angina pectoris; I48.0 Paroxysmal atrial fibrillation; R06.02 Shortness of breath; I71.2 Thoracic aortic aneurysm, without rupture; I65.29 Occlusion and stenosis of unspecified carotid artery; D72.820 Lymphocytosis (symptomatic); C85.10 Unspecified B-cell lymphoma, unspecified site; E78.5 Hyperlipidemia, unspecified; E11.9 Type 2 diabetes mellitus without complications; E66.9 Obesity, unspecified; N17.9 Acute kidney failure, unspecified; J44.9 Chronic obstructive pulmonary disease, unspecified; R60.0 Localized edema; F17.210 Nicotine dependence, cigarettes, uncomplicated; F31.9 Bipolar disorder, unspecified; Z79.899 Other long term (current) drug therapy; Z95.5 Presence of coronary angioplasty implant and graft; Z68.43 Body mass index [BMI] 50.0-59.9, adult; Z99.89 Dependence on other enabling machines and devices
CPT/HCPCS: 80053 ×2; 82947 ×2; 85025 ×2; 85610 ×2; 86900; 86901; 94760 ×2; 96374; 96375; G0378; G0379; P9017; 36415

== ENCOUNTER → 2022-03-09 | Outpatient (CLI) | payer MEDICARE ==
[~2022-03-09] MED LIST changes: +AMLO-251 PO; +ASPI-999 PO; +CLOP75TA69 PO; +CRV25T PO; +INSU100I34 SQ; +OXYC1TAB15 PO; +RIVA20TA PO; +RT-ALBUINH INH; +WARF7.5T3 PO
== END ==
LOC: CARD 13:00
PROVIDERS: ATTEND Pediatrics
DX: I51.7 Cardiomegaly (principal)
CPT/HCPCS: 93306

== ENCOUNTER 2022-03-10 09:00 | Outpatient (RCR) | payer MEDICARE ==
[2022-03-09 11:08] LABS: BASOPHILS # (AUTO) 0.1 10^3/uL (0.0-0.1); BASOPHILS % (AUTO) 1 % (0-10); EOSINOPHILS # (AUTO) 0.5 10^3/uL (0.0-0.3); EOSINOPHILS % (AUTO) 5 % (0-10); HEMATOCRIT 33 % (40-54); HEMOGLOBIN 9.6 g/dL (13.3-17.7); LYMPHOCYTES % (AUTO) 11 % (12-44); MEAN CORPUSCULAR HEMOGLOBIN 23 pg (25-34); MEAN CORPUSCULAR HGB CONC 29 g/dL (32-36); MEAN CORPUSCULAR VOLUME 79 fL (80-99); MONOCYTES # (AUTO) 0.8 10^3/uL (0.0-1.0); MONOCYTES % (AUTO) 10 % (0-12); NEUTROPHILS # (AUTO) 6.4 10^3/uL (1.8-7.8); NEUTROPHILS % (AUTO) 73 % (42-75); PLATELET COUNT 523 10^3/uL (130-400); WHITE BLOOD COUNT 8.7 10^3/uL (4.3-11.0)
[2022-03-09 11:32] LABS: ALBUMIN 3.8 GM/DL (3.2-4.5); BILIRUBIN,TOTAL 0.2 MG/DL (0.1-1.0); CALCIUM 8.9 MG/DL (8.5-10.1); CREATININE SERUM 1.48 MG/DL (0.60-1.30); POTASSIUM 3.7 MMOL/L (3.6-5.0); TOTAL PROTEIN 7.3 GM/DL (6.4-8.2)
[2022-03-14 15:22] LABS: MISC LAB TEST & RESULT SEE FOOTNOTE
== END 2022-03-24 | disposition home or self-care (01) ==
LOC: ONC 09:00
PROVIDERS: ATTEND Internal Medicine Hematology & Oncology
DX: Z45.2 Encounter for adjustment and management of vascular access device (principal); C91.10 Chronic lymphocytic leukemia of B-cell type not having achieved remission
CPT/HCPCS: 80053; 83615; 85025; G0463; 36591; 82607; 82728; 82747; 83540; 83550

== ENCOUNTER 2022-04-27 06:04 | Outpatient (RCR) | payer MEDICARE ==
[~2022-04-27] VITALS: Ht 172.7 cm; Wt 139.3 kg
[2022-05-10] MEDS ORDERED: SUCR1TAB36 PO (10:30)
== END 2022-05-25 | disposition home or self-care (01) ==
LOC: PREOP 06:04 → EDSTATUS 11:00
PROVIDERS: ATTEND Surgery
DX: Z01.818 Encounter for other preprocedural examination (principal); Z20.822 Contact with and (suspected) exposure to COVID-19
CPT/HCPCS: 87636

== ENCOUNTER 2022-05-10 08:51 | Day surgery (SDC) | payer OTHER, MEDICARE ==
[~2022-05-10] VITALS: Ht 173 cm; Wt 139.3 kg
[2022-05-10] MEDS ORDERED: LACTATED RINGERS 1,000 ML IV STA (08:57)
[2022-05-10] MEDS ORDERED: HURRICAINE EXT TUBE (BENZOCAINE) XX PRN (09:00)
[2022-05-10 09:15] VITALS: BP 147/70
[2022-05-10] MEDS ORDERED: MIDAZOLAM 2 MG/2 ML (VERSED) VIAL ONE (09:46)
[2022-05-10] MEDS ORDERED: PROPOFOL INJECTION 50 ML IV ONE (09:46)
--- NOTE | 2022-05-10 10:29 | Progress Note-Post Operative ---
Post-Operative Progess Note Surgeon (s)/Rip And Groove Machine Operator (s) Surgeon ELVER RENDON DO Rip And Groove Machine Operator: na Pre-Operative Diagnosis Persistent Iron Deficiency Anemia Post-Operative Diagnosis Slight Gastritis Small AVM - Sigmoid Procedure & Operative Findings Date of Procedure 05/10/22 Procedure Performed/Findings EGD c biopsies Colonoscopy Anesthesia Type per POWER TRANSFORMER REPAIRER Estimated Blood Loss Estimated blood loss (mL): none Specimens/Packing Specimens Removed Antrum biopsy x1 GE Junction biopsy x1 ELVER RENDON DO May 10, 2022 10:29
[2022-05-10] MEDS ORDERED: SUCR1TAB36 PO (10:30)
[2022-05-10 10:32] VITALS: BP 137/65
--- NOTE | 2022-05-10 10:32 | Discharge Inst-Simple/Standard ---
Discharge Inst-Standard Patient Instructions/Follow Up Plan of Care/Instructions/FU: 2 weeks Lucia Activity as Tolerated: Yes Discharge Diet: Regular Diet ELVER RENDON DO May 10, 2022 10:31
[2022-05-10 10:35] VITALS: BP 139/66
[2022-05-10 10:45] VITALS: BP 139/66
--- NOTE | 2022-05-10 14:17 | Anesthesia-General Post-Op ---
MAC Patient Condition Mental Status/LOC: Same as Preop Cardiovascular: Satisfactory Nausea/Vomiting: Absent Respiratory: Satisfactory Pain: Controlled Complications: Absent Post Op Complications Complications None Follow Up Care/Instructions Patient Instructions None needed. Anesthesiology Discharge Order Discharge Order Patient is doing well, no complaints, stable vital signs, no apparent adverse anesthesia problems. No complications reported per nursing. ASHLEY HERNADEZ CRNA May 10, 2022 14:17
--- NOTE | 2022-05-10 14:59 | OPERATIVE REPORT ---
DATE OF SERVICE: 05/10/2022 PREOPERATIVE DIAGNOSIS: Iron deficiency anemia. POSTOPERATIVE DIAGNOSES: Slight gastritis, small AVM of sigmoid. PROCEDURE: EGD with biopsies, colonoscopy. SURGEON: Elver Myers DO ANESTHESIA: Per CARBON PASTE MIXER OPERATOR. ESTIMATED BLOOD LOSS: None. COMPLICATIONS: None. INDICATIONS: The patient is a 57-year-old male with iron deficiency anemia and understands risks and benefits of procedure and wishes to proceed. Consent was signed in the chart. DESCRIPTION OF PROCEDURE: The patient was taken to the endoscopy suite, placed in the left lateral recumbent position. Timeout was performed. Scope was inserted in mouth, down the esophagus, stomach and into the duodenum without difficulty. No polyps, masses or ulcerations within the duodenum. Scope was slowly retracted back into the stomach where it was further insufflated. Erythematous changes consistent with some slight gastritis present. Biopsy of the antrum was obtained. Scope was retroflexed noting no other pathology. Scope was returned to its normal position, slowly withdrawn to distal esophagus. Biopsy of GE junction was obtained. No polyps, masses or ulcerations. Scope was slowly retracted back until completely removed. Digital rectal exam was performed. No palpable polyps, masses or ulcerations. Scope was inserted in the rectum, advanced all the way to cecum with minimal difficulty. Prep was adequate with irrigation and suction. Scope was then slowly retracted back. No polyps, masses or ulcerations within the cecum, ascending, transverse, descending and sigmoid colon. In sigmoid colon, there was a small arteriovenous malformation. No active bleeding. Scope was slowly retracted back in the rectum, where it was also retroflexed noting no other pathology. Scope was returned to its normal position, slowly withdrawn until completely removed. The patient tolerated procedure well without any complications, taken to the recovery room in stable condition. RECOMMENDATIONS: The patient to continue on Protonix. We will add Carafate 1 gram four times a day. Continue to follow for iron deficiency anemia. To further evaluate would recommend capsule endoscopy to evaluate the small bowel. The patient will follow up in the office in 2 weeks to discuss. Job ID: [id number] DocumentID: [id number] Dictated Date: 05/10/2022 10:34:51 Founding Partner Date: 05/10/2022 14:59:14 Dictated By: ELVER MYERS DO
== END 2022-05-10 11:05 | disposition home or self-care (01) ==
LOC: ENDO 08:51
PROVIDERS: ATTEND Surgery
DX: Q27.33 Arteriovenous malformation of digestive system vessel (principal); K21.00 Gastro-esophageal reflux disease with esophagitis, without bleeding; K31.9 Disease of stomach and duodenum, unspecified; D50.9 Iron deficiency anemia, unspecified; F17.290 Nicotine dependence, other tobacco product, uncomplicated; G47.33 Obstructive sleep apnea (adult) (pediatric); E66.01 Morbid (severe) obesity due to excess calories; Z68.42 Body mass index [BMI] 45.0-49.9, adult; Z79.899 Other long term (current) drug therapy
CPT/HCPCS: 82947; 88305

== ENCOUNTER 2022-06-14 12:57 | Outpatient (RCR) | payer MEDICARE ==
[~2022-06-14 12:57] MED LIST changes: +POTA-177 PO; -POTA10TA37 PO; +SUCR1TAB36 PO
[2022-06-14 13:25] LABS: BASOPHILS # (AUTO) 0.1 10^3/uL (0.0-0.1); BASOPHILS % (AUTO) 1 % (0-10); EOSINOPHILS # (AUTO) 0.4 10^3/uL (0.0-0.3); EOSINOPHILS % (AUTO) 4 % (0-10); HEMATOCRIT 30 % (40-54); HEMOGLOBIN 8.6 g/dL (13.3-17.7); LYMPHOCYTES # (AUTO) 1.1 10^3/uL (1.0-4.0); LYMPHOCYTES % (AUTO) 11 % (12-44); MEAN CORPUSCULAR HEMOGLOBIN 21 pg (25-34); MEAN CORPUSCULAR HGB CONC 28 g/dL (32-36); MEAN CORPUSCULAR VOLUME 75 fL (80-99); MEAN PLATELET VOLUME 9.7 fL (9.0-12.2); MONOCYTES # (AUTO) 0.8 10^3/uL (0.0-1.0); MONOCYTES % (AUTO) 9 % (0-12); NEUTROPHILS # (AUTO) 6.9 10^3/uL (1.8-7.8); NEUTROPHILS % (AUTO) 75 % (42-75); PLATELET COUNT 535 10^3/uL (130-400); WHITE BLOOD COUNT 9.2 10^3/uL (4.3-11.0)
[2022-06-14 13:47] LABS: ALBUMIN 3.7 GM/DL (3.2-4.5); BILIRUBIN,TOTAL 0.3 MG/DL (0.1-1.0); CALCIUM 9.2 MG/DL (8.5-10.1); CREATININE SERUM 1.31 MG/DL (0.60-1.30); POTASSIUM 3.3 MMOL/L (3.6-5.0); TOTAL PROTEIN 7.2 GM/DL (6.4-8.2)
== END 2022-06-24 | disposition home or self-care (01) ==
LOC: ONC 12:57
PROVIDERS: ATTEND Internal Medicine Hematology & Oncology
DX: C91.10 Chronic lymphocytic leukemia of B-cell type not having achieved remission (principal); J44.9 Chronic obstructive pulmonary disease, unspecified; K21.9 Gastro-esophageal reflux disease without esophagitis; E66.01 Morbid (severe) obesity due to excess calories; I25.10 Atherosclerotic heart disease of native coronary artery without angina pectoris; E78.5 Hyperlipidemia, unspecified; I10 Essential (primary) hypertension; E11.9 Type 2 diabetes mellitus without complications
CPT/HCPCS: 80053; 82728; 83540; 83550; 83615; 85025; G0463; 36415

== ENCOUNTER 2022-09-20 09:41 | Outpatient (RCR) | payer MEDICARE ==
[2022-09-13 11:18] LABS: BASOPHILS # (AUTO) 0.1 10^3/uL (0.0-0.1); BASOPHILS % (AUTO) 1 % (0-10); EOSINOPHILS # (AUTO) 0.6 10^3/uL (0.0-0.3); EOSINOPHILS % (AUTO) 6 % (0-10); HEMATOCRIT 38 % (40-54); HEMOGLOBIN 10.9 g/dL (13.3-17.7); LYMPHOCYTES # (AUTO) 1.1 10^3/uL (1.0-4.0); LYMPHOCYTES % (AUTO) 13 % (12-44); MEAN CORPUSCULAR HEMOGLOBIN 23 pg (25-34); MEAN CORPUSCULAR HGB CONC 29 g/dL (32-36); MEAN CORPUSCULAR VOLUME 80 fL (80-99); MEAN PLATELET VOLUME 10.2 fL (9.0-12.2); MONOCYTES # (AUTO) 0.7 10^3/uL (0.0-1.0); MONOCYTES % (AUTO) 8 % (0-12); NEUTROPHILS # (AUTO) 6.4 10^3/uL (1.8-7.8); NEUTROPHILS % (AUTO) 72 % (42-75); PLATELET COUNT 389 10^3/uL (130-400); WHITE BLOOD COUNT 8.9 10^3/uL (4.3-11.0)
[2022-09-13 11:37] LABS: ALBUMIN 3.7 GM/DL (3.2-4.5); BILIRUBIN,TOTAL 0.3 MG/DL (0.1-1.0); CALCIUM 8.5 MG/DL (8.5-10.1); CREATININE SERUM 0.95 MG/DL (0.60-1.30); POTASSIUM 3.4 MMOL/L (3.6-5.0); TOTAL PROTEIN 7.2 GM/DL (6.4-8.2)
[~2022-09-20 09:41] MED LIST changes: +ALBU8.5H6 IH; +ALBU8.5H6 PO; +CLOP-31 PO; -CLOP75TA69 PO; +FERRIC CARBOXYMALTOSE INJ 750 MG in NS (IVPB) 250 ML IV SCH; -RT-ALBUINH IH; -RT-ALBUINH PO
== END 2022-09-24 | disposition home or self-care (01) ==
LOC: ONC 09:41
PROVIDERS: ATTEND Internal Medicine Hematology & Oncology
DX: Z45.2 Encounter for adjustment and management of vascular access device (principal); C91.10 Chronic lymphocytic leukemia of B-cell type not having achieved remission; J44.9 Chronic obstructive pulmonary disease, unspecified; K21.9 Gastro-esophageal reflux disease without esophagitis; E66.01 Morbid (severe) obesity due to excess calories; I25.10 Atherosclerotic heart disease of native coronary artery without angina pectoris; E78.5 Hyperlipidemia, unspecified; I10 Essential (primary) hypertension; E11.9 Type 2 diabetes mellitus without complications; D50.9 Iron deficiency anemia, unspecified
CPT/HCPCS: 80053; 82728; 83540; 83550; 85025; G0463; 36415; 36591; 96365; 96523

== ENCOUNTER 2022-09-27 09:45 | Outpatient (RCR) | payer MEDICARE | END 2022-10-25 | disposition home or self-care (01) | LOC: ONC 09:45 | PROVIDERS: ATTEND Internal Medicine Hematology & Oncology | DX: Z45.2 Encounter for adjustment and management of vascular access device (principal); D50.9 Iron deficiency anemia, unspecified; C91.10 Chronic lymphocytic leukemia of B-cell type not having achieved remission; E66.01 Morbid (severe) obesity due to excess calories; I25.10 Atherosclerotic heart disease of native coronary artery without angina pectoris; E78.5 Hyperlipidemia, unspecified; I10 Essential (primary) hypertension; E87.6 Hypokalemia; E11.9 Type 2 diabetes mellitus without complications | CPT/HCPCS: 96365; 96523 ==

== ENCOUNTER 2022-11-15 08:43 | Outpatient (RCR) | payer MEDICARE ==
[~2022-11-15 08:43] MED LIST changes: -FERRIC CARBOXYMALTOSE INJ 750 MG in NS (IVPB) 250 ML IV SCH
[2022-11-15 09:16] LABS: BASOPHILS # (AUTO) 0.1 10^3/uL (0.0-0.1); BASOPHILS % (AUTO) 1 % (0-10); EOSINOPHILS # (AUTO) 0.3 10^3/uL (0.0-0.3); EOSINOPHILS % (AUTO) 4 % (0-10); HEMATOCRIT 43 % (40-54); HEMOGLOBIN 13.8 g/dL (13.3-17.7); LYMPHOCYTES # (AUTO) 0.8 10^3/uL (1.0-4.0); LYMPHOCYTES % (AUTO) 10 % (12-44); MEAN CORPUSCULAR HEMOGLOBIN 28 pg (25-34); MEAN CORPUSCULAR HGB CONC 32 g/dL (32-36); MEAN CORPUSCULAR VOLUME 86 fL (80-99); MEAN PLATELET VOLUME 10.2 fL (9.0-12.2); MONOCYTES # (AUTO) 0.7 10^3/uL (0.0-1.0); MONOCYTES % (AUTO) 9 % (0-12); NEUTROPHILS # (AUTO) 6.4 10^3/uL (1.8-7.8); NEUTROPHILS % (AUTO) 77 % (42-75); PLATELET COUNT 344 10^3/uL (130-400); WHITE BLOOD COUNT 8.2 10^3/uL (4.3-11.0)
[2022-11-15 09:29] LABS: ALBUMIN 3.7 GM/DL (3.2-4.5); BILIRUBIN,TOTAL 0.3 MG/DL (0.1-1.0); CALCIUM 9.3 MG/DL (8.5-10.1); CREATININE SERUM 1.26 MG/DL (0.60-1.30); POTASSIUM 3.2 MMOL/L (3.6-5.0); TOTAL PROTEIN 7.5 GM/DL (6.4-8.2)
== END 2022-11-22 | disposition home or self-care (01) ==
LOC: ONC 08:43
PROVIDERS: ATTEND Internal Medicine Hematology & Oncology
DX: D50.9 Iron deficiency anemia, unspecified (principal); C91.10 Chronic lymphocytic leukemia of B-cell type not having achieved remission; E66.01 Morbid (severe) obesity due to excess calories; I25.10 Atherosclerotic heart disease of native coronary artery without angina pectoris; E78.5 Hyperlipidemia, unspecified; I10 Essential (primary) hypertension; E87.6 Hypokalemia; E11.9 Type 2 diabetes mellitus without complications; K21.9 Gastro-esophageal reflux disease without esophagitis
CPT/HCPCS: 36415; 80053; 82728; 83540; 83550; 85025

== ENCOUNTER → 2023-02-03 | Outpatient (CLI) | payer MEDICARE ==
[~2023-02-03] MED LIST changes: -LOSA100T3 PO; +LOSA100T4 PO
== END ==
LOC: CARD 14:08
PROVIDERS: ATTEND Internal Medicine Cardiovascular Disease
DX: I08.0 Rheumatic disorders of both mitral and aortic valves (principal)
CPT/HCPCS: 93306

== ENCOUNTER 2023-02-07 09:38 | Outpatient (RCR) | payer MEDICARE ==
[2023-02-03 14:07] LABS: BASOPHILS # (AUTO) 0.1 10^3/uL (0.0-0.1); BASOPHILS % (AUTO) 1 % (0-10); EOSINOPHILS # (AUTO) 0.2 10^3/uL (0.0-0.3); EOSINOPHILS % (AUTO) 3 % (0-10); HEMATOCRIT 41 % (40-54); HEMOGLOBIN 13.8 g/dL (13.3-17.7); LYMPHOCYTES # (AUTO) 1.1 10^3/uL (1.0-4.0); LYMPHOCYTES % (AUTO) 13 % (12-44); MEAN CORPUSCULAR HEMOGLOBIN 31 pg (25-34); MEAN CORPUSCULAR HGB CONC 34 g/dL (32-36); MEAN CORPUSCULAR VOLUME 91 fL (80-99); MEAN PLATELET VOLUME 10.6 fL (9.0-12.2); MONOCYTES # (AUTO) 0.8 10^3/uL (0.0-1.0); MONOCYTES % (AUTO) 9 % (0-12); NEUTROPHILS # (AUTO) 6.5 10^3/uL (1.8-7.8); NEUTROPHILS % (AUTO) 74 % (42-75); PLATELET COUNT 330 10^3/uL (130-400); WHITE BLOOD COUNT 8.7 10^3/uL (4.3-11.0)
== END 2023-02-22 | disposition home or self-care (01) ==
LOC: ONC 09:38
PROVIDERS: ATTEND Internal Medicine Hematology & Oncology
DX: Z51.11 Encounter for antineoplastic chemotherapy (principal); C91.10 Chronic lymphocytic leukemia of B-cell type not having achieved remission; I10 Essential (primary) hypertension; I25.10 Atherosclerotic heart disease of native coronary artery without angina pectoris; E78.5 Hyperlipidemia, unspecified; E11.9 Type 2 diabetes mellitus without complications; E66.9 Obesity, unspecified; E78.2 Mixed hyperlipidemia; G47.33 Obstructive sleep apnea (adult) (pediatric); I48.0 Paroxysmal atrial fibrillation; I65.23 Occlusion and stenosis of bilateral carotid arteries; I34.0 Nonrheumatic mitral (valve) insufficiency; F31.9 Bipolar disorder, unspecified; N18.9 Chronic kidney disease, unspecified; J44.9 Chronic obstructive pulmonary disease, unspecified
CPT/HCPCS: 36415; 36591; 82728; 83540; 83550; 85025

== ENCOUNTER → 2023-03-29 | Outpatient (CLI) | payer MEDICARE ==
[~2023-03-29] MED LIST changes: +CATHETER FLUSH 10 ML SYR IVP PRN; +POTA-330 PO; -POTA-51 PO; +REGADENOSON 0.4 MG/5 ML SYR (LEXISCAN) IV ONE
[2023-03-29 09:14] VITALS: BP 249/100
--- NOTE | 2023-03-29 21:14 | STRESS TEST ---
DATE OF SERVICE: 03/29/2023 RESTING AND POST REGADENOSON TECHNETIUM-99M TETROFOSMIN SPECT CT IMAGING ORDERING PHYSICIAN: Dr. Rendon. PRIMARY PHYSICIAN: Dr. Forrest Gallo. CLINICAL DIAGNOSIS: Coronary artery disease. Baseline images were carried out after injection of 10.3 mCi of technetium-99m tetrofosmin. This was followed by 0.4 mg regadenoson and 27.2 mCi of technetium-99m tetrofosmin for stress imaging. The electrocardiogram showed sinus rhythm at baseline. Prior anterior wall myocardial infarction cannot be excluded on the electrocardiogram. Review of images at rest and following stress indicates an apical perfusion defect that is predominantly fixed. Gated images show apical akinesis. Left ventricular ejection fraction is calculated to be 44%. Left ventricular end-diastolic volume is 145 mL. TID is absent (1.1). CONCLUSIONS: 1. Apical infarction with minimal radha-infarct ischemia. 2. Apical akinesis. 3. Impairment of global left ventricular systolic function with a calculated ejection fraction 44%. 4. Moderate cardiomegaly. Job ID: [id number] DocumentID: [id number] Dictated Date: 03/29/2023 17:50:26 Metal Lather Date: 03/29/2023 21:12:00 Dictated By: ESPERANZA RENDON MD; DONTE; FACP; FACC;
== END ==
LOC: CARD 07:30
PROVIDERS: ATTEND Internal Medicine Cardiovascular Disease
DX: I25.10 Atherosclerotic heart disease of native coronary artery without angina pectoris (principal); I51.7 Cardiomegaly; I67.82 Cerebral ischemia
CPT/HCPCS: 78452; 93017; A9502

== ENCOUNTER 2023-05-09 09:00 | Outpatient (RCR) | payer MEDICARE ==
[2023-05-05 12:18] LABS: BASOPHILS % (AUTO) 1 % (0-10); EOSINOPHILS # (AUTO) 0.3 10^3/uL (0.0-0.3); EOSINOPHILS % (AUTO) 5 % (0-10); HEMATOCRIT 41 % (40-54); HEMOGLOBIN 13.4 g/dL (13.3-17.7); LYMPHOCYTES # (AUTO) 1.1 10^3/uL (1.0-4.0); LYMPHOCYTES % (AUTO) 17 % (12-44); MEAN CORPUSCULAR HEMOGLOBIN 30 pg (25-34); MEAN CORPUSCULAR HGB CONC 33 g/dL (32-36); MEAN CORPUSCULAR VOLUME 92 fL (80-99); MEAN PLATELET VOLUME 11.4 fL (9.0-12.2); MONOCYTES # (AUTO) 0.7 10^3/uL (0.0-1.0); MONOCYTES % (AUTO) 10 % (0-12); NEUTROPHILS # (AUTO) 4.4 10^3/uL (1.8-7.8); NEUTROPHILS % (AUTO) 68 % (42-75); PLATELET COUNT 260 10^3/uL (130-400); WHITE BLOOD COUNT 6.6 10^3/uL (4.3-11.0)
[~2023-05-09 09:00] MED LIST changes: -CATHETER FLUSH 10 ML SYR IVP PRN; -REGADENOSON 0.4 MG/5 ML SYR (LEXISCAN) IV ONE
== END 2023-05-25 | disposition home or self-care (01) ==
LOC: ONC 09:00
PROVIDERS: ATTEND Internal Medicine Hematology & Oncology
DX: Z45.2 Encounter for adjustment and management of vascular access device (principal); C91.10 Chronic lymphocytic leukemia of B-cell type not having achieved remission; D50.9 Iron deficiency anemia, unspecified; I25.10 Atherosclerotic heart disease of native coronary artery without angina pectoris; E78.5 Hyperlipidemia, unspecified; E66.9 Obesity, unspecified; E78.2 Mixed hyperlipidemia; G47.33 Obstructive sleep apnea (adult) (pediatric); E11.9 Type 2 diabetes mellitus without complications; I48.0 Paroxysmal atrial fibrillation; I65.23 Occlusion and stenosis of bilateral carotid arteries; I34.0 Nonrheumatic mitral (valve) insufficiency; F31.9 Bipolar disorder, unspecified; I12.9 Hypertensive chronic kidney disease with stage 1 through stage 4 chronic kidney disease, or unspecified chronic kidney disease; N18.9 Chronic kidney disease, unspecified; J44.9 Chronic obstructive pulmonary disease, unspecified
CPT/HCPCS: 36415; 36591; 82728; 83540; 83550; 85025; 99214

== ENCOUNTER → 2023-06-01 | Outpatient (CLI) | payer MEDICARE, OTHER | LOC: WOUNDCARE 08:40 | PROVIDERS: ATTEND Family Medicine | DX: E11.622 Type 2 diabetes mellitus with other skin ulcer (principal); L97.212 Non-pressure chronic ulcer of right calf with fat layer exposed; A49.8 Other bacterial infections of unspecified site; I89.0 Lymphedema, not elsewhere classified; E66.01 Morbid (severe) obesity due to excess calories; D51.8 Other vitamin B12 deficiency anemias; Z68.42 Body mass index [BMI] 45.0-49.9, adult; E11.52 Type 2 diabetes mellitus with diabetic peripheral angiopathy with gangrene | CPT/HCPCS: 11042; 87070; 87077; 87186; 87205; A6197; A6212; G0463 ==

== ENCOUNTER → 2023-06-07 | Outpatient (CLI) | payer MEDICARE ==
[~2023-06-07] MED LIST changes: -DICL100G13 TOP; +DICL100G60 TOP
== END ==
LOC: WOUNDCARE 10:26
PROVIDERS: ATTEND Family Medicine
DX: E11.622 Type 2 diabetes mellitus with other skin ulcer (principal); L97.212 Non-pressure chronic ulcer of right calf with fat layer exposed; I89.0 Lymphedema, not elsewhere classified; E66.01 Morbid (severe) obesity due to excess calories; D51.8 Other vitamin B12 deficiency anemias; I70.232 Atherosclerosis of native arteries of right leg with ulceration of calf; E11.65 Type 2 diabetes mellitus with hyperglycemia; B96.1 Klebsiella pneumoniae [K. pneumoniae] as the cause of diseases classified elsewhere; E11.52 Type 2 diabetes mellitus with diabetic peripheral angiopathy with gangrene; Z68.42 Body mass index [BMI] 45.0-49.9, adult
CPT/HCPCS: 11042; A6212; G0463

== ENCOUNTER → 2023-06-13 | Outpatient (CLI) | payer MEDICARE | LOC: WOUNDCARE 08:17 | PROVIDERS: ATTEND Family Medicine | DX: E11.622 Type 2 diabetes mellitus with other skin ulcer (principal); E11.65 Type 2 diabetes mellitus with hyperglycemia; I70.232 Atherosclerosis of native arteries of right leg with ulceration of calf; L97.212 Non-pressure chronic ulcer of right calf with fat layer exposed; I89.0 Lymphedema, not elsewhere classified; E66.01 Morbid (severe) obesity due to excess calories; Z68.42 Body mass index [BMI] 45.0-49.9, adult; D51.8 Other vitamin B12 deficiency anemias; B96.1 Klebsiella pneumoniae [K. pneumoniae] as the cause of diseases classified elsewhere | CPT/HCPCS: A6212; G0463; 99213 ==

== ENCOUNTER 2023-07-04 08:00 | Day surgery (SDC) | payer MEDICARE ==
[2023-07-04] VITALS (19 sets, daily range): BP systolic 126–206; BP diastolic 48–96
[~2023-07-04] VITALS: Ht 172.7 cm; Wt 136.6 kg
[2023-07-04 07:35] LABS: HEMATOCRIT 41 % (40-54); HEMOGLOBIN 13.3 g/dL (13.3-17.7); MEAN CORPUSCULAR HEMOGLOBIN 31 pg (25-34); MEAN CORPUSCULAR HGB CONC 33 g/dL (32-36); MEAN CORPUSCULAR VOLUME 94 fL (80-99); MEAN PLATELET VOLUME 10.4 fL (9.0-12.2); PLATELET COUNT 302 10^3/uL (130-400); WHITE BLOOD COUNT 7.9 10^3/uL (4.3-11.0)
[2023-07-04 07:49] LABS: INR 1.1 (0.8-1.4)
[2023-07-04 08:00] LABS: ALBUMIN 3.8 GM/DL (3.2-4.5); BILIRUBIN,TOTAL 0.2 MG/DL (0.1-1.0); CALCIUM 8.7 MG/DL (8.5-10.1); CREATININE SERUM 1.2 MG/DL (0.60-1.30); POTASSIUM 3.8 MMOL/L (3.6-5.0); TOTAL PROTEIN 7.1 GM/DL (6.4-8.2)
[~2023-07-04 08:00] MED LIST changes: +DULA3PEN SQ; -EZET10TA17 PO; +EZET10TA83 PO; +HEParin (CATH LAB) 2,000 ML IV ONE; +LIDOCAINE 1% INJ 20 ML VIAL ONE; +LOSA-417 PO; -LOSA100T4 PO; -MECL-149 PO; +MECL-291 PO; +NS IV 1000 ML 1,000 ML IV SCH; +NS IV 1000 ML 1,000 ML ONE; +PREG150C47 PO; +ROPI0.2533 PO; +SPIR25TA PO; +SUMA50TA2 PO
[2023-07-04] MEDS ORDERED: MIDAZOLAM INJ 5 MG/5 ML VIAL ONE (08:12)
[2023-07-04] MEDS ORDERED: fentaNYL INJECTION 100 MCG/2 ML VIAL ONE (08:12)
[2023-07-04] MEDS ORDERED: DICL100G60 TP ×2 (08:37)
[2023-07-04] MEDS ORDERED: ATOR80TA76 PO ×2 (08:37)
[2023-07-04] MEDS ORDERED: CYCL1DRO OP ×2 (08:37)
[2023-07-04] MEDS ORDERED: OXYC-556 PO ×2 (08:37)
[2023-07-04] MEDS ORDERED: NAPR-1070 PO ×2 (08:37)
[2023-07-04] MEDS ORDERED: TRAZ-227 PO ×2 (08:37)
[2023-07-04] MEDS ORDERED: RIVA20TA PO ×2 (08:37)
[2023-07-04] MEDS ORDERED: NITRO DRIP 25000 MCG/D5W 0 ML IV ONE (09:27)
[2023-07-04] MEDS ORDERED: HEParin 1000 UNIT/ML (10ML VIAL) FOR BOLUS ONE (09:27)
--- NOTE | 2023-07-04 09:53 | Cardiac Procedure Note-CS/ASA ---
Pre-Procedure Note Pre-Op Procedure Note Date of Available H&P: Jun 26, 2023 Date H&P Reviewed: Jul 04, 2023 Time H&P Reviewed: 08:50 History & Physical: H&P Reviewed, No changes noted Moderate Sedation PreProcedure ASA Score 3 Airway Lungs Heart ASA score ASA 1: a normal healthy patient ASA 2: a patient with a mild systemic disease (mid diabetes, controlled hypertension, obesity ASA 3: a patient with a severe systemic disease that limits activity (angina, COPD, prior Myocardial infarction) ASA 4: a patient with an incapacitating disease that is a constant threat to life (CHF, renal failure) ASA 5: a moribund patient not expected to survive 24 hrs. (ruptured aneurysm) ASA 6: a declared brain- patient whose organs are being harvested. For emergent operations, add the letter E after the classification Mallampati Classification Grade 3 Sedation Plan Analgesia, Amnesia, Plan communicated to team members The patient is an appropriate candidate to undergo the planned procedure, sedation, and anesthesia. The patient immediately re-assessed prior to indication. ESPERANZA STANFORD MD FACP FAC CCDS Jul 04, 2023 09:53
[2023-07-04] MEDS ORDERED: PATIENT MAY USE OWN MEDS, ALL PO SCH (10:00)
[2023-07-04] MEDS ORDERED: NS IV 1000 ML 1,000 ML IV SCH (10:00)
--- NOTE | 2023-07-04 10:06 | Cardiac Cath Report ---
CARDIAC CATHETERIZATION DATE OF PROCEDURE: 07-04-23 INDICATION: Non-healing wound of the R lower leg HISTORY: The patient is a 58 year old male with non-healing wound of the R lower leg. Mod PAD on noninvasive w/u PROCEDURES PERFORMED: 1. []. PROCEDURE DESCRIPTION: After informed consent and in the fasting state, Peripheral angiography was performed through the L femoral artery utilizing a 5 Kyr[place]z system by percutaneous approach. 5 F Pigtail cath was used for infra- renal abdominal aortic angio with run off down to the level of the ankles. We attempted to advance a long sheath into the R common femoral artery from the L side (the side of arterial access). We were able to advance a 0.35" exchange- length wire into position (with tip in the R superficial femoral artery) and then remove the 5F sheath, but were not able to advance a long 6F sheath because of curling of the wire in the considerable amount of soft tissue anterior to the site of entry in the L femoral artery. We removed the wire and held manual pressure to achieve hemostasis. Plan reattempt at a later days after allowing time to heal from today's arterial puncture. PERIPHERAL ANGIOGRAPHY: Infra-renal abdominal aorta without stenoses or aneurysm. Aorto-iliac bifurcation and iliac arteries and common femoral and superficial and deep femoral and popliteal arteries patent and without significant disease on both sides. Three vessel run off on both sides. 80-90% focal stenosis of the proximal right posterior tibial artery. IMPRESSION: 1. 80-90% focal stenosis of the proximal right posterior tibial artery. ESPERANZA STANFORD MD [facility] CCDS Jul 04, 2023 10:06
--- NOTE | 2023-07-04 10:08 | Discharge Inst-Cardiology ---
Discharge Inst-Cardiac Discharge Medications Continued Medications: Albuterol Sulfate (Ventolin Hfa) 1 Puff Puff 2 PUFF IH Q4H PRN for SHORTNESS OF BREATH, EA Allopurinol (Allopurinol) 300 Mg Tablet 300 MG PO DAILY, TAB Aspirin (Aspirin) 81 Mg Tab.chew 81 MG PO DAILY, TAB Atorvastatin Calcium (Atorvastatin Calcium) 80 Mg Tablet 80 MG PO DAILY, TAB Clopidogrel Bisulfate (Plavix) 75 Mg Tablet 75 MG PO DAILY, TAB Cyclosporine (Restasis) 0.05 % Droperette 1 DROP OP BID, DROP Diclofenac Sodium (Diclofenac Sodium) 1 % Gel..gram. 1 APPLIC TP DAILY PRN for ARTHRITIS PAIN, TUBE Divalproex Sodium (Divalproex Sodium) 125 Mg Tablet.dr 125 MG PO TID, TAB Dulaglutide (Trulicity) 3 Mg/0.5 Ml Pen.injctr 3 MG SQ WEEKLY ON SUN, EA Empagliflozin (Jardiance) 25 Mg Tablet 25 MG PO DAILY, TAB Fluticasone Propionate (Fluticasone Propionate) 16 Gm [place].susp 1-2 SPRAY NSEACH HS, EA Hydralazine HCl (Hydralazine HCl) 100 Mg Tablet 100 MG PO BID, TAB Hydroxyzine Pamoate (Hydroxyzine Pamoate) 50 Mg Capsule 50 MG PO BID PRN for ANXIETY, CAP Insulin Aspart (Novolog Flexpen) 100 Unit/Ml (3 Ml) Solution 5-20 UNITS SQ AC, EA USES PER SLIDING SCALE Insulin Glargine,Hum.rec.anlog (Basaglar Kwikpen U-100) 100 Unit/1 Ml Insuln.pen 30 UNIT SQ HS, EA Naproxen Sodium (Anaprox Ds) 550 Mg Tablet 550 MG PO BID PRN for PAIN-MILD (1-4), TAB Oxycodone HCl/Acetaminophen (Oxycodone-Acetaminophen 10-325) 10 Mg-325 Mg Tablet 1 EACH PO Q6H PRN for PAIN-MODERATE (5-7), TAB Pregabalin (Pregabalin) 150 Mg Capsule 150 MG PO HS, CAP Rivaroxaban (Xarelto) 20 Mg Tablet 20 MG PO DAILY, TAB Ropinirole HCl (Ropinirole HCl) 0.25 Mg Tablet 0.25 MG PO HS, TAB Spironolactone (Aldactone) 25 Mg Tablet 25 MG PO DAILY, TAB Sumatriptan Succinate (Sumatriptan Succinate) 50 Mg Tablet 50 MG PO PRN PRN for HEADACHE, TAB Tamsulosin HCl (Flomax) 0.4 Mg Cap 0.4 MG PO DAILY, CAP Torsemide (Torsemide) 20 Mg Tablet 40 MG PO DAILY, TAB TAKES 2 (20MG) TABLETS Trazodone HCl (Trazodone HCl) 100 Mg Tablet 100 MG PO HS, TAB Umeclidinium [place] (Incruse Ellipta) 62.5 Mcg/Actuation Blst.w.dev 2 PUFF INH DAILY, EA Patient Instructions Patient Instructions: HOLD Rivaroxaban on 07-04-23. Resume on the evening of 07-05-23 ESPERANZA STANFORD MD [facility] CCDS Jul 04, 2023 10:08
--- NOTE | 2023-07-04 10:10 | Discharge Inst-Post CATH ---
Discharge Inst-CATH/EP Post Cardiac Cath/EP D/C Inst Follow Up/Plan Call Dr Rendon's office for rescheduling procedure ACTIVITY * Go Home directly and rest. * Limit activity of the leg (or wrist if it was used) for 7 days including aerobics, swimming, jogging, bicycling, etc. * Restrict stair-climbing for 7 days if possible, if not, climb up with your non-cath leg, then bring together on the same step. * Avoid lifting, pushing, pulling or excessive movement of the affected extremity for 7 days. * Customary sexual activity may be resumed after 2 days-use caution not to use a position that strains or causes pain to the affected extremity. * No driving for 24 hours. * NO SMOKING. * Avoid straining for bowel movements for 7 days. * Gentle walking on level ground is allowed. * Returning to work will depend on the type of procedure and the results. Your doctor will discuss this with you. CALL YOUR DOCTOR FOR ANY OF THE FOLLOWING: *If bleeding from the puncture site occurs- Apply gentle pressure to site with clean cloth and call your doctor or EMS. * If a knot or lump forms under the skin, increases in size, or causes pain. * If bruising appears to be worsening or moving further down your leg instead of disappearing. * Temperature above 101 F. CARE OF YOUR GROIN INCISION; * Bruising or purple discoloration of the skin near the puncture site is common. * You may shower only, no bathtub bathing for 5 days. Be careful to avoid slipping as your leg may feel stiff. * If a closure device was used on your femoral artery, please see the attached guide regarding care of the device and your leg. * Leave dressing on FOR 24 hours. CARE OF YOUR WRIST INCISION; * Bruising or purple discoloration of the skin near the puncture site is common. * You may shower. * DO NOT submerge wrist. * Leave dressing on FOR 24 hours. ESPERANZA RENDON MD [facility] CCDS Jul 04, 2023 10:10
--- NOTE | 2023-07-04 11:06 | Tele-ICU Consult ---
History of Present Illness History of Present Illness Date Seen by Provider: Jul 04, 2023 Time Seen by Provider: 11:05 History of Present Illness eICU Critical Care Consult Allergies and Home Medications Allergies Coded Allergies: fluticasone furoate (Verified Allergy, Severe, Anaphylaxis, 02/25/21) vilanterol (Verified Allergy, Severe, Anaphylaxis, 02/25/21) insulin detemir (Verified Allergy, Intermediate, Vomiting, 02/25/21) Home Medications Albuterol Sulfate 1 Puff Puff, 2 PUFF IH Q4H PRN for SHORTNESS OF BREATH, (Reported) Allopurinol 300 Mg Tablet, 300 MG PO DAILY, (Reported) Aspirin 81 Mg Tab.chew, 81 MG PO DAILY, (Reported) Atorvastatin Calcium 80 Mg Tablet, 80 MG PO DAILY, (Reported) Clopidogrel Bisulfate 75 Mg Tablet, 75 MG PO DAILY, (Reported) Cyclosporine 0.05 % Droperette, 1 DROP OP BID, (Reported) Diclofenac Sodium 1 % Gel..gram., 1 APPLIC TP DAILY PRN for ARTHRITIS PAIN, (Reported) Divalproex Sodium 125 Mg Tablet.dr, 125 MG PO TID, (Reported) Dulaglutide 3 Mg/0.5 Ml Pen.injctr, 3 MG SQ WEEKLY ON SUN, (Reported) Empagliflozin 25 Mg Tablet, 25 MG PO DAILY, (Reported) Fluticasone Propionate 16 Gm [place].susp, 1-2 SPRAY NSEACH HS, (Reported) Hydralazine HCl 100 Mg Tablet, 100 MG PO BID, (Reported) Hydroxyzine Pamoate 50 Mg Capsule, 50 MG PO BID PRN for ANXIETY, (Reported) Insulin Aspart 100 Unit/Ml (3 Ml) Solution, 5-20 UNITS SQ AC, (Reported) USES PER SLIDING SCALE Insulin Glargine,Hum.rec.anlog 100 Unit/1 Ml Insuln.pen, 30 UNIT SQ HS, (Reported) Naproxen Sodium 550 Mg Tablet, 550 MG PO BID PRN for PAIN-MILD (1-4), (Reported) Oxycodone HCl/Acetaminophen 10 Mg-325 Mg Tablet, 1 EACH PO Q6H PRN for PAIN- MODERATE (5-7), (Reported) Pregabalin 150 Mg Capsule, 150 MG PO HS, (Reported) Rivaroxaban 20 Mg Tablet, 20 MG PO DAILY, (Reported) Ropinirole HCl 0.25 Mg Tablet, 0.25 MG PO HS, (Reported) Spironolactone 25 Mg Tablet, 25 MG PO DAILY, (Reported) Sumatriptan Succinate 50 Mg Tablet, 50 MG PO PRN PRN for HEADACHE, (Reported) Tamsulosin HCl 0.4 Mg Cap, 0.4 MG PO DAILY, (Reported) Torsemide 20 Mg Tablet, 40 MG PO DAILY, (Reported) TAKES 2 (20MG) TABLETS Trazodone HCl 100 Mg Tablet, 100 MG PO HS, (Reported) Umeclidinium [place] 62.5 Mcg/Actuation Blst.w.dev, 2 PUFF INH DAILY, (Reported) Past Medical/Social/Family Hx Immunizations Up To Date First/Initial COVID19 Vaccinat: 2020 Second COVID19 Vaccination Nigel: 2020 Tetanus Booster (TDap): Unknown Hepatitis A: No Hepatitis B: No TB Skin Test: None Date of Pneumonia Vaccine: Aug 19, 2014 Current Status Communicates: Verbally Primary Language: Norwegian Past Medical History Past Medical History 1. DM 2. Bipolar Disorder 3. Personality Disorder 4. Obesity 5. Occasional Tobacco use- cigars 6. COPD with ADELA, using CPAP 7. B- Cell small lymphocytic lymphoma (previously evaluated by [facility] 2008 who recommended cessation of medications and follow up) Now following with Dr. Lawton 8. Migraines with [facility] (Dr. Daniels) 9. Possible seizure disorder (evaluated by Neurology with normal EEG) 10. Alcoholism- pt admits drinking at least 2-3 beers 3 days a week, however previously admitted to drinking daily 11. Impulse control disorder 12. Squamous cell carcinoma- sp resection 13. Basal cell carcinoma- sp resection 14. GERD with gastritis and duodenitis 15. HTN 16. HLP - has not filled his Lipitor since 01-06 17. ED 18. DDD 19: CAD Past Surgical History 1. Cardiac Cath 05-14-14 with PTCA to LAD using Promus 3.5x24mm stent, remaining 70% stenosis in OM, with small right. 2. Colonoscopy and EGD- [facility] 2009 3. Basal Cell carcinoma resected face 4. Squamous cell resected face 5. Left Carpal Tunnel 2000 6. Rt. knee arthroscopy 1993 and 2003 7. Cardiac Cath 06-24-14 by [facility] demonstrating patent stent 8. Colonoscopy 2013 [place] Focused Exam Height, Weight, BMI Height: 5'7.00" Weight: 352lbs. 8.0oz. [id number]; 45.80 BMI Method:Stated Exam Exam Patient acknowledged, consented, and participated in this virtual visit which was conducted using real time audio/video Vital Signs Date Time Temp Pulse Resp B/P (MAP) Pulse Ox O2 Delivery O2 Flow Rate FiO2 07/04/23 10:39 61 07/04/23 07:32 36.3 61 16 206/94 (131) 91 Room Air Height & Weight Height: 5'7.00" Weight: 352lbs. 8.0oz. 159.419105tr; 45.80 BMI Method:Stated Results Lab Laboratory Tests 07/04/23 07:31 DIONY SANTIAGO MD Jul 04, 2023 11:06
== END 2023-07-04 15:22 | disposition home or self-care (01) ==
LOC: CATH 08:00 → EDSTATUS 08:00 → CATH 10:28 → ICU 10:28 → CATH 15:22 → ICU 15:22
PROVIDERS: ATTEND Internal Medicine Cardiovascular Disease
DX: E11.51 Type 2 diabetes mellitus with diabetic peripheral angiopathy without gangrene (principal); E11.621 Type 2 diabetes mellitus with foot ulcer; E66.01 Morbid (severe) obesity due to excess calories; L97.919 Non-pressure chronic ulcer of unspecified part of right lower leg with unspecified severity; I10 Essential (primary) hypertension; I48.0 Paroxysmal atrial fibrillation; I25.10 Atherosclerotic heart disease of native coronary artery without angina pectoris; D72.820 Lymphocytosis (symptomatic); E78.5 Hyperlipidemia, unspecified; J44.9 Chronic obstructive pulmonary disease, unspecified; I65.23 Occlusion and stenosis of bilateral carotid arteries; E78.2 Mixed hyperlipidemia; R94.31 Abnormal electrocardiogram [ECG] [EKG]; G47.33 Obstructive sleep apnea (adult) (pediatric); M79.89 Other specified soft tissue disorders; I34.0 Nonrheumatic mitral (valve) insufficiency; I95.1 Orthostatic hypotension; F31.9 Bipolar disorder, unspecified; Z68.42 Body mass index [BMI] 45.0-49.9, adult; Z79.4 Long term (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; Z87.891 Personal history of nicotine dependence; Z95.5 Presence of coronary angioplasty implant and graft; Z79.899 Other long term (current) drug therapy; Z99.81 Dependence on supplemental oxygen; Z79.82 Long term (current) use of aspirin; Z79.891 Long term (current) use of opiate analgesic
CPT/HCPCS: 36200; 75630; 80053; 80061; 82947; 85027; 85610; 85730; 87081; 93005; C1769; C1887; C1894 ×2; 36415

== ENCOUNTER → 2023-07-06 | Outpatient (CLI) | payer MEDICARE ==
[~2023-07-06] MED LIST changes: +ATOR80TA76 PO; +CYCL1DRO OP; +DICL100G60 TP; -HEParin (CATH LAB) 2,000 ML IV ONE; -LIDOCAINE 1% INJ 20 ML VIAL ONE; +NAPR-1070 PO; -NS IV 1000 ML 1,000 ML IV SCH; -NS IV 1000 ML 1,000 ML ONE
== END ==
LOC: WOUNDCARE 09:37
PROVIDERS: ATTEND Family Medicine
DX: L97.212 Non-pressure chronic ulcer of right calf with fat layer exposed (principal); I89.0 Lymphedema, not elsewhere classified; E11.622 Type 2 diabetes mellitus with other skin ulcer; E66.01 Morbid (severe) obesity due to excess calories; Z68.42 Body mass index [BMI] 45.0-49.9, adult; D51.8 Other vitamin B12 deficiency anemias; I70.232 Atherosclerosis of native arteries of right leg with ulceration of calf; E11.65 Type 2 diabetes mellitus with hyperglycemia; E11.52 Type 2 diabetes mellitus with diabetic peripheral angiopathy with gangrene; I96 Gangrene, not elsewhere classified
CPT/HCPCS: 11042; A6212; G0463

== ENCOUNTER 2023-07-11 07:17 | Day surgery (SDC) | payer MEDICARE ==
[~2023-07-11] VITALS: Ht 172.7 cm; Wt 136.6 kg
[2023-07-11] VITALS (17 sets, daily range): BP systolic 133–185; BP diastolic 66–86
[2023-07-11] MEDS ORDERED: LIDOCAINE 1% INJ 20 ML VIAL ONE (07:21)
[2023-07-11] MEDS ORDERED: HEParin (CATH LAB) 2,000 ML IV ONE (07:22)
[2023-07-11] MEDS ORDERED: NS IV 1000 ML 1,000 ML ONE (07:22)
[2023-07-11] MEDS ORDERED: NS IV 1000 ML 1,000 ML IV SCH ×2 (07:30→11:15)
[2023-07-11] MEDS ORDERED: fentaNYL INJECTION 100 MCG/2 ML VIAL ONE ×2 (08:22→10:09)
[2023-07-11] MEDS ORDERED: MIDAZOLAM INJ 5 MG/5 ML VIAL ONE (08:22)
[2023-07-11 08:31] LABS: HEMATOCRIT 40 % (40-54); MEAN CORPUSCULAR HEMOGLOBIN 30 pg (25-34); MEAN CORPUSCULAR HGB CONC 33 g/dL (32-36); MEAN CORPUSCULAR VOLUME 93 fL (80-99); MEAN PLATELET VOLUME 10.7 fL (9.0-12.2); PLATELET COUNT 293 10^3/uL (130-400); WHITE BLOOD COUNT 9.3 10^3/uL (4.3-11.0)
[2023-07-11] MEDS ORDERED: IMIQUIMOD TP (08:34)
[2023-07-11] MEDS ORDERED: IMIQUIMOD 5% TP (08:34)
[2023-07-11 08:36] LABS: ALBUMIN 3.7 GM/DL (3.2-4.5); BILIRUBIN,TOTAL 0.3 MG/DL (0.1-1.0); CALCIUM 8.9 MG/DL (8.5-10.1); CREATININE SERUM 1.27 MG/DL (0.60-1.30); POTASSIUM 3.9 MMOL/L (3.6-5.0); TOTAL PROTEIN 7.1 GM/DL (6.4-8.2)
[2023-07-11 08:37] LABS: PROTHROMBIN TIME PATIENT 13.4 SEC (12.2-14.7)
[2023-07-11] MEDS ORDERED: diphenhydrAMINE INJ 50 MG/ML VIAL ONE (09:21)
[2023-07-11] MEDS ORDERED: HEParin 1000 UNIT/ML (10ML VIAL) FOR BOLUS ONE (09:36)
[2023-07-11] MEDS ORDERED: CLOPIDOGREL 75 MG TABLET ONE (10:27)
[2023-07-11] MEDS ORDERED: ASPIRIN 81 MG CHEWABLE TABLET ONE (10:27)
--- NOTE | 2023-07-11 10:51 | Cardiac Procedure Note-CS/ASA ---
Pre-Procedure Note Pre-Op Procedure Note Date of Available H&P: Jun 26, 2023 Date H&P Reviewed: Jul 11, 2023 Time H&P Reviewed: 08:45 History & Physical: H&P Reviewed Moderate Sedation PreProcedure ASA Score 3 Airway Lungs Heart ASA score ASA 1: a normal healthy patient ASA 2: a patient with a mild systemic disease (mid diabetes, controlled hypertension, obesity ASA 3: a patient with a severe systemic disease that limits activity (angina, COPD, prior Myocardial infarction) ASA 4: a patient with an incapacitating disease that is a constant threat to life (CHF, renal failure) ASA 5: a moribund patient not expected to survive 24 hrs. (ruptured aneurysm) ASA 6: a declared brain- patient whose organs are being harvested. For emergent operations, add the letter E after the classification Mallampati Classification Grade 3 Sedation Plan Analgesia, Amnesia, Plan communicated to team members The patient is an appropriate candidate to undergo the planned procedure, sedation, and anesthesia. The patient immediately re-assessed prior to indication. ESPERANZA STANFORD MD FACP FAC CCDS Jul 11, 2023 10:51
--- NOTE | 2023-07-11 11:05 | Cardiac Cath Report ---
CARDIAC CATHETERIZATION DATE OF PROCEDURE: 07-11-23 INDICATION: Non-healing ulcer on the R lower leg HISTORY: The patient is a 58 year old male with multiple PAD risk factors who is has non-healing ulcer of the R leg. Resolving bruising in the L groin from peripheral angiography access of last week. PROCEDURES PERFORMED: 1. L Femoral artery access with R superficial femoral artery angio with runoff 2. CONCRETE TILE MACHINE OPERATOR of the R posterior tibial artery PROCEDURE DESCRIPTION: After informed consent and in the fasting state, peripheral access was obtained through the L femoral artery utilizing a 6 [place]ic system by percutaneous approach. We used 5F crossover catheter to advance a Storq wire into the R femoral artery, contralateral to the site of access. We then replace the 6 F sheath with a 90cm 6F sheath whose tip extended well into the R superficial femoral artery. Angiography did not reveal any significant disease of the R superficial femoral or popliteal arteries. There was 99% stenosis of the proximal part of the R posterior tibial artery that was intervened on (see below). At conclusion of procedure and after replacement of long 6F sheath with a short 6F sheath, angiography indicated access into the deep L femoral artery. Hemostasis was achieved with manual pressure following sheath removal. PERCUTANEOUS INTERVENTION TO THE RIGHT POSTERIOR TIBIAL ARTERY Sheath: 90cm 6F sheath extending into the R superficial femoral artery from L femoral artery access Heparin: 6,000 units iv Wire: Command LT 0.018" Balloon [place]-18 3.0 x 40 x 150 Results: 99% proximal stenosis of the R posterior tibial artery with slow antegrade flow -> less than 10% residual and normal antegrade flow IMPRESSION: Successful balloon-only angioplasty of the R posterior tibial artery with reduction of proximal stenosis from 99% to less than 10% ESPERANZA STANFORD MD FACP [facility] CCDS Jul 11, 2023 11:05
[2023-07-11] MEDS ORDERED: PATIENT MAY USE OWN MEDS, ALL PO SCH (11:15)
--- NOTE | 2023-07-11 11:20 | Discharge Inst-Cardiology ---
Discharge Inst-Cardiac Discharge Medications Continued Medications: Albuterol Sulfate (Ventolin Hfa) 1 Puff Puff 2 PUFF IH Q4H PRN for SHORTNESS OF BREATH, EA Allopurinol (Allopurinol) 300 Mg Tablet 300 MG PO DAILY, TAB Atorvastatin Calcium (Atorvastatin Calcium) 80 Mg Tablet 80 MG PO DAILY, TAB Clopidogrel Bisulfate (Plavix) 75 Mg Tablet 75 MG PO DAILY, TAB Cyclosporine (Restasis) 0.05 % Droperette 1 DROP OP BID PRN for DRY EYES, DROP Diclofenac Sodium (Diclofenac Sodium) 1 % Gel..gram. 1 APPLIC TP DAILY PRN for ARTHRITIS PAIN, TUBE Divalproex Sodium (Divalproex Sodium) 125 Mg Tablet.dr 125 MG PO TID, TAB Dulaglutide (Trulicity) 3 Mg/0.5 Ml Pen.injctr 3 MG SQ WEEKLY ON SUN, EA Empagliflozin (Jardiance) 25 Mg Tablet 25 MG PO DAILY, TAB Fluticasone Propionate (Fluticasone Propionate) 16 Gm [place].susp 1-2 SPRAY NSEACH HS, EA Hydralazine HCl (Hydralazine HCl) 100 Mg Tablet 100 MG PO TID, TAB Hydroxyzine Pamoate (Hydroxyzine Pamoate) 50 Mg Capsule 50 MG PO BID PRN for ANXIETY, CAP [Imiquimod 5% Cream] () 1 APPLIC TP UD APPLY ONCE DAILY FOR 3 DAYS AND STOP FOR 2 DAYS Insulin Aspart (Novolog Flexpen) 100 Unit/Ml (3 Ml) Solution 5-20 UNITS SQ AC, EA USES PER SLIDING SCALE Insulin Glargine,Hum.rec.anlog (Basaglar Kwikpen U-100) 100 Unit/1 Ml Insuln.pen 30 UNIT SQ HS, EA Oxycodone HCl/Acetaminophen (Oxycodone-Acetaminophen 10-325) 10 Mg-325 Mg Tablet 1 EACH PO Q6H PRN for PAIN-MODERATE (5-7), TAB Pregabalin (Pregabalin) 150 Mg Capsule 150 MG PO BID, CAP Rivaroxaban (Xarelto) 20 Mg Tablet 20 MG PO DAILY, TAB Ropinirole HCl (Ropinirole HCl) 0.25 Mg Tablet 0.25 MG PO HS, TAB Spironolactone (Aldactone) 25 Mg Tablet 25 MG PO DAILY, TAB Sumatriptan Succinate (Sumatriptan Succinate) 50 Mg Tablet 50 MG PO PRN PRN for HEADACHE, TAB Tamsulosin HCl (Flomax) 0.4 Mg Cap 0.4 MG PO DAILY, CAP Torsemide (Torsemide) 20 Mg Tablet 40 MG PO DAILY, TAB TAKES 2 (20MG) TABLETS Trazodone HCl (Trazodone HCl) 100 Mg Tablet 100 MG PO HS, TAB Umeclidinium [place] (Incruse Ellipta) 62.5 Mcg/Actuation Blst.w.dev 2 PUFF INH DAILY, EA Discontinued Medications: Aspirin (Aspirin) 81 Mg Tab.chew 81 MG PO DAILY, TAB Naproxen Sodium (Anaprox Ds) 550 Mg Tablet 550 MG PO BID PRN for PAIN-MILD (1-4), TAB Patient Instructions Patient Instructions: Hold RIVAROXABAN (XARELTO) on 07/11 and 07/12/23. Resume on 07/13/23 ESPERANZA STANFORD MD FACP [facility] Jul 11, 2023 11:20
--- NOTE | 2023-07-11 11:21 | Discharge Inst-Post CATH ---
Discharge Inst-CATH/EP Post Cardiac Cath/EP D/C Inst Follow Up/Plan F/u with Dr Rendon in 2 weeks ACTIVITY * Go Home directly and rest. * Limit activity of the leg (or wrist if it was used) for 7 days including aerobics, swimming, jogging, bicycling, etc. * Restrict stair-climbing for 7 days if possible, if not, climb up with your no n-cath leg, then bring together on the same step. * Avoid lifting, pushing, pulling or excessive movement of the affected ext remity for 7 days. * Customary sexual activity may be resumed after 2 days-use caution not to use a position that strains or causes pain to the affected extremity. * No driving for 24 hours. * NO SMOKING. * Avoid straining for bowel movements for 7 days. * Gentle walking on level ground is allowed. * Returning to work will depend on the type of procedure and the results. Your doctor will discuss this with you. CALL YOUR DOCTOR FOR ANY OF THE FOLLOWING: *If bleeding from the puncture site occurs- Apply gentle pressure to site with clean cloth and call your doctor or EMS. * If a knot or lump forms under the skin, increases in size, or causes pain. * If bruising appears to be worsening or moving further down your leg instead of disappearing. * Temperature above 101 F. CARE OF YOUR GROIN INCISION; * Bruising or purple discoloration of the skin near the puncture site is common. * You may shower only, no bathtub bathing for 5 days. Be careful to avoid slipping as your leg may feel stiff. * If a closure device was used on your femoral artery, please see the attached guide regarding care of the device and your leg. * Leave dressing on FOR 24 hours. CARE OF YOUR WRIST INCISION; * Bruising or purple discoloration of the skin near the puncture site is common. * You may shower. * DO NOT submerge wrist. * Leave dressing on FOR 24 hours. ESPERANZA RENDON MD [facility] CCDS Jul 11, 2023 11:21
== END 2023-07-11 18:00 | disposition home or self-care (01) ==
LOC: CATH 07:17 → EDSTATUS 09:00 → CSD 12:36 → CATH 18:00
PROVIDERS: ATTEND Internal Medicine Cardiovascular Disease
DX: I70.201 Unspecified atherosclerosis of native arteries of extremities, right leg (principal); I46.9 Cardiac arrest, cause unspecified; I48.0 Paroxysmal atrial fibrillation; I11.9 Hypertensive heart disease without heart failure; I25.10 Atherosclerotic heart disease of native coronary artery without angina pectoris; E66.01 Morbid (severe) obesity due to excess calories; R94.31 Abnormal electrocardiogram [ECG] [EKG]; E11.622 Type 2 diabetes mellitus with other skin ulcer; L97.919 Non-pressure chronic ulcer of unspecified part of right lower leg with unspecified severity; E78.5 Hyperlipidemia, unspecified; E66.9 Obesity, unspecified; J44.9 Chronic obstructive pulmonary disease, unspecified; C85.10 Unspecified B-cell lymphoma, unspecified site; D72.820 Lymphocytosis (symptomatic); G47.33 Obstructive sleep apnea (adult) (pediatric); I65.23 Occlusion and stenosis of bilateral carotid arteries; I34.0 Nonrheumatic mitral (valve) insufficiency; I95.1 Orthostatic hypotension; F31.9 Bipolar disorder, unspecified; Z68.43 Body mass index [BMI] 50.0-59.9, adult; Z87.891 Personal history of nicotine dependence; Z79.899 Other long term (current) drug therapy; Z79.82 Long term (current) use of aspirin; Z79.4 Long term (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; Z79.01 Long term (current) use of anticoagulants; Z87.448 Personal history of other diseases of urinary system
CPT/HCPCS: 37228; 80053; 85027; 85347; 85610; 85730; 87081; C1725; C1769 ×2; C1887; C1894 ×3; 36415

== ENCOUNTER → 2023-07-13 | Outpatient (CLI) | payer MEDICARE ==
[~2023-07-13] MED LIST changes: +IMIQUIMOD 5% TP; +IMIQUIMOD TP
== END ==
LOC: WOUNDCARE 09:46
PROVIDERS: ATTEND Family Medicine
DX: I96 Gangrene, not elsewhere classified (principal); E11.622 Type 2 diabetes mellitus with other skin ulcer; E11.65 Type 2 diabetes mellitus with hyperglycemia; L97.212 Non-pressure chronic ulcer of right calf with fat layer exposed; I89.0 Lymphedema, not elsewhere classified; D51.3 Other dietary vitamin B12 deficiency anemia; I70.232 Atherosclerosis of native arteries of right leg with ulceration of calf; E66.01 Morbid (severe) obesity due to excess calories; Z68.42 Body mass index [BMI] 45.0-49.9, adult
CPT/HCPCS: 11042; A6212; G0463

== ENCOUNTER → 2023-07-20 | Outpatient (CLI) | payer MEDICARE | LOC: WOUNDCARE 09:41 | PROVIDERS: ATTEND Family Medicine | DX: I96 Gangrene, not elsewhere classified (principal); E11.622 Type 2 diabetes mellitus with other skin ulcer; E11.65 Type 2 diabetes mellitus with hyperglycemia; I70.232 Atherosclerosis of native arteries of right leg with ulceration of calf; L97.212 Non-pressure chronic ulcer of right calf with fat layer exposed; I89.0 Lymphedema, not elsewhere classified; D51.8 Other vitamin B12 deficiency anemias; E66.01 Morbid (severe) obesity due to excess calories; Z68.42 Body mass index [BMI] 45.0-49.9, adult | CPT/HCPCS: 11042; A6021; G0463 ==

== ENCOUNTER → 2023-07-24 | Outpatient (CLI) | payer MEDICARE | LOC: WOUNDCARE 08:30 | PROVIDERS: ATTEND Family Medicine | DX: I96 Gangrene, not elsewhere classified (principal); L97.919 Non-pressure chronic ulcer of unspecified part of right lower leg with unspecified severity; I89.0 Lymphedema, not elsewhere classified; E11.40 Type 2 diabetes mellitus with diabetic neuropathy, unspecified | CPT/HCPCS: 29581; G0463 ==

== ENCOUNTER → 2023-07-26 | Outpatient (CLI) | payer MEDICARE | LOC: WOUNDCARE 08:21 | PROVIDERS: ATTEND Family Medicine | DX: I96 Gangrene, not elsewhere classified (principal); I89.0 Lymphedema, not elsewhere classified; E11.622 Type 2 diabetes mellitus with other skin ulcer; L97.212 Non-pressure chronic ulcer of right calf with fat layer exposed; E11.65 Type 2 diabetes mellitus with hyperglycemia; E66.01 Morbid (severe) obesity due to excess calories; D51.8 Other vitamin B12 deficiency anemias; I70.232 Atherosclerosis of native arteries of right leg with ulceration of calf; Z68.42 Body mass index [BMI] 45.0-49.9, adult | CPT/HCPCS: 11042; G0463 ==

== ENCOUNTER → 2023-08-02 | Outpatient (CLI) | payer MEDICARE | LOC: WOUNDCARE 08:25 | PROVIDERS: ATTEND Family Medicine | DX: I96 Gangrene, not elsewhere classified (principal); E11.622 Type 2 diabetes mellitus with other skin ulcer; E11.65 Type 2 diabetes mellitus with hyperglycemia; L97.212 Non-pressure chronic ulcer of right calf with fat layer exposed; I70.232 Atherosclerosis of native arteries of right leg with ulceration of calf; D51.8 Other vitamin B12 deficiency anemias; I89.0 Lymphedema, not elsewhere classified; E66.01 Morbid (severe) obesity due to excess calories; Z68.42 Body mass index [BMI] 45.0-49.9, adult | CPT/HCPCS: 11042; A6021; G0463 ==

== ENCOUNTER → 2023-08-09 | Outpatient (CLI) | payer MEDICARE | LOC: WOUNDCARE 08:15 | PROVIDERS: ATTEND Family Medicine | DX: E11.622 Type 2 diabetes mellitus with other skin ulcer (principal); L97.212 Non-pressure chronic ulcer of right calf with fat layer exposed; I89.0 Lymphedema, not elsewhere classified; E66.01 Morbid (severe) obesity due to excess calories; E11.65 Type 2 diabetes mellitus with hyperglycemia; I70.232 Atherosclerosis of native arteries of right leg with ulceration of calf; D51.8 Other vitamin B12 deficiency anemias; Z68.42 Body mass index [BMI] 45.0-49.9, adult | CPT/HCPCS: 11042; A6021; G0463 ==

== ENCOUNTER → 2023-08-16 | Outpatient (CLI) | payer MEDICARE | LOC: WOUNDCARE 08:02 | PROVIDERS: ATTEND Family Medicine | DX: L97.212 Non-pressure chronic ulcer of right calf with fat layer exposed (principal); I89.0 Lymphedema, not elsewhere classified; E11.622 Type 2 diabetes mellitus with other skin ulcer; E66.01 Morbid (severe) obesity due to excess calories; Z68.42 Body mass index [BMI] 45.0-49.9, adult; D51.3 Other dietary vitamin B12 deficiency anemia; I70.232 Atherosclerosis of native arteries of right leg with ulceration of calf; E11.65 Type 2 diabetes mellitus with hyperglycemia | CPT/HCPCS: 29581; G0463 ==